=== PATIENT | female | born 1940 | race Caucasian/White ===

== ENCOUNTER 2023-04-18 11:02 | Outpatient (OUT) | payer MEDICARE, SELFPAY ==
--- NOTE | 2023-04-18 11:27 | XR_ITS ---
The [address] [address] Patient Name: LASHAUN JOAQUIN MRN: [id number] date: 1940 Sex: F Assigned Patient Location: LAB Current Patient Location: LAB Accession/Order Number: [id number] Exam Date: 04/18/2023 11:18 Report Date: 04/18/2023 11:43 At the request of: CHELSEA MAR Procedure: XR chest 2V EXAM: XR chest 2V HISTORY: Shortness of breath R06.02 COMPARISON: None. TECHNIQUE: PA and lateral views of the chest. FINDINGS: The cardiomediastinal silhouette is normal. No focal consolidation is identified. There is no pneumothorax. No pleural effusion is noted. The osseous structures are intact. IMPRESSION: No acute cardiopulmonary process. Electronically authenticated by: TALI KOVACS Date: 04/18/2023 11:43
[2023-04-18 11:31] LABS: Basophils Percent Auto 0.7 % (0.2-2.0); Eosinophils Absolute Auto 0.1 10^3/uL (0.0-0.7); Eosinophils Percent Auto 1.2 % (0.9-7.0); Hemoglobin 10.6 g/dL (12.0-16.0); Immature Granulocytes Abs Auto 0.05 10^3/uL (0.00-0.03); Immature Granulocytes Pct Auto 0.9 % (0.0-0.5); Lymphocytes Absolute Auto 0.7 10^3/uL (1.2-3.8); Lymphocytes Percent Auto 12.7 % (20.5-60.0); Mean Corpuscular HGB Conc 33.1 g/dL (29.9-35.2); Mean Corpuscular Hemoglobin 29.6 pg (26.7-34.0); Mean Corpuscular Volume 89.4 fL (81.0-99.0); Mean Platelet Volume 10.1 fL (9.5-13.5); Monocytes Absolute Auto 0.4 10^3/uL (0.3-0.8); Monocytes Percent Auto 6.9 % (1.7-12.0); Neutrophils Absolute Auto 4.4 10^3/uL (1.4-6.5); Neutrophils Percent Auto 77.6 % (43.0-75.0); Platelet Count 314 10^3/uL (150-450); Red Blood Count 3.58 10^6/uL (4.20-5.40); Red Cell Distribution Width 13.7 % (11.0-15.0); White Blood Count 5.7 10^3/uL (4.0-11.0)
[2023-04-18 12:18] LABS: Anion Gap 12.3; BUN Creatinine Ratio 17.6; Calcium 9.1 mg/dL (8.5-10.1); Carbon Dioxide 29.4 mmol/L (21.0-32.0); Chloride 105 mmol/L (98-107); Estimated GFR (African America 53 (>=60); Estimated GFR (Non-African Ame 44 (>=60); Glucose 94 mg/dL (74-106); Potassium 4.7 mmol/L (3.5-5.1); Sodium 142 mmol/L (136-145); Thyroid Stimulating Hormone 4.324 uIU/mL (0.358-3.740)
== END 2023-04-18 11:03 ==
LOC: LAB 11:04
PROVIDERS: PCP Internal Medicine; Visit Provider Internal Medicine
DX: R06.02 Shortness of breath (principal); I25.10 Atherosclerotic heart disease of native coronary artery without angina pectoris; I10 Essential (primary) hypertension; D64.9 Anemia, unspecified; R00.1 Bradycardia, unspecified
CPT/HCPCS: 36415; 71046; 80048; 83880; 84443; 85025

== ENCOUNTER 2023-05-31 08:38 | Outpatient (OUT) | payer MEDICARE, SELFPAY ==
[2023-05-31 09:40] LABS: Anion Gap 11.8; BUN Creatinine Ratio 15.5; Calcium 8.7 mg/dL (8.5-10.1); Carbon Dioxide 27.7 mmol/L (21.0-32.0); Chloride 105 mmol/L (98-107); Estimated GFR (African America 58 (>=60); Estimated GFR (Non-African Ame 48 (>=60); Glucose 117 mg/dL (74-106); Potassium 4.5 mmol/L (3.5-5.1); Sodium 140 mmol/L (136-145)
== END 2023-05-31 08:39 | disposition home or self-care (01) ==
LOC: LAB 08:40
PROVIDERS: PCP Internal Medicine; Visit Provider Internal Medicine
DX: I10 Essential (primary) hypertension (principal)
CPT/HCPCS: 36415; 80048

== ENCOUNTER 2023-07-18 10:05 | Outpatient (OUT) | payer MEDICARE, SELFPAY ==
[2023-07-18 10:27] LABS: Bilirubin Urine NEGATIVE (NEGATIVE); Blood Urine LARGE (NEGATIVE); Clarity Urine CLEAR (CLEAR); Glucose Urine UA NEGATIVE (NEGATIVE); Ketones Urine NEGATIVE (NEGATIVE); Leukocyte Esterase Urine NEGATIVE (NEGATIVE); Nitrite Urine POSITIVE (NEGATIVE); Protein Urine NEGATIVE (NEG/TRACE); pH Urine 6.5 (5.0-9.0)
[2023-07-18 10:28] LABS: Color Urine DK YELLOW (YELLOW)
[2023-07-18 11:47] LABS: Bacteria Urine TRACE #/HPF (NONE SEEN); Cast Seen? NONE SEEN #/LPF (NONE SEEN); Crystals Seen? None Seen #/HPF (None Seen); Mucus Urine NONE SEEN (NONE SEEN); Squamous Epithelial Cell Urine RARE #/LPF (NONE/RARE); WBC Urine 0-2 #/HPF (NONE SEEN)
== END 2023-07-18 10:06 | disposition home or self-care (01) ==
LOC: LAB 10:09
PROVIDERS: PCP Internal Medicine; Visit Provider Internal Medicine
DX: R30.0 Dysuria (principal)
CPT/HCPCS: 81001; 87086

== ENCOUNTER 2023-07-27 01:56 | Inpatient (IN) | payer MEDICARE, SELFPAY ==
[2023-07-27] VITALS (25 sets, daily range): BP systolic 101–172; BP diastolic 50–100; PULSE 44–85; RESP 16–32; TEMP 35.9–38.8; O2SAT 85–100; BMI 35.4
--- NOTE | 2023-07-27 02:15 | ECG_ITS ---
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
--- NOTE | 2023-07-27 02:18 | XR_ITS ---
The [place] [id number] Patient Name: LASHAUN JOAQUIN MRN: [id number] date: 1940 Sex: F Assigned Patient Location: ER Current Patient Location: ER Accession/Order Number: [id number] Exam Date: 07/27/2023 02:27 Report Date: 07/27/2023 02:47 At the request of: TONIA MARKER Procedure: XR chest 1V EXAM: XR chest 1V HISTORY: COVID+ SOB COMPARISON: Chest x-ray 04/18/2023 TECHNIQUE: Single frontal view chest x-ray FINDINGS: Moderate bilateral mid and lower lung opacities. Trace right pleural effusion. No pneumothorax or acute bony abnormality. Mildly enlarged cardiac silhouette and bilateral pulmonary vascular congestion. XR/XR chest 1V IMPRESSION: Moderate bilateral mid and lower lung opacities reflect pneumonitis, edema, or other lung infiltrates. Correlate clinically. Trace right pleural effusion. Mildly enlarged cardiac silhouette and bilateral pulmonary vascular congestion. Electronically authenticated by: ARNAV JAIN Date: 07/27/2023 02:47
--- NOTE | 2023-07-27 02:18 | ED_ITS ---
HPI - SOB/Dyspnea General Chief Complaint: Shortness of Breath/Dyspnea Stated Complaint: SOB Time Seen by Provider: 07/27/23 02:14 Source: patient and family Mode of arrival: walk-in History of Present Illness HPI Narrative: This 82-year-old female with history of coronary artery disease status post coronary stenting ?3 recently presents for evaluation of cough, wheezing and shortness of breath. The patient and her both tested positive for Covid 19 on Sunday, 5 days ago, the patient is vaccinated and has had her boosters. She states she was not experiencing any Covid symptoms until yesterday during the day when she started coughing and becoming short of breath. She has mild nausea but denies any abdominal pain. She has not had any vomiting or diarrhea. She is not a smoker. The patient's thinks that she may have contracted Covid 19 while in this hospital at cardiac rehab. She has a history of congestive heart failure but not chronic obstructive pulmonary disease. MD elicited complaint: shortness of breath and cough Related Data Home Medications Medication Instructions Recorded Confirmed alprazolam 0.25 mg tablet 0.25 mg PO TID 04/11/23 04/11/23 aspirin 81 mg tablet,delayed 81 mg PO DAILY 04/11/23 04/11/23 release carvedilol 3.125 mg tablet 3.125 mg PO Q12H 04/11/23 04/11/23 furosemide 20 mg tablet 20 mg PO DAILY 04/11/23 04/11/23 gabapentin 100 mg capsule 100 mg PO Q12H 04/11/23 04/11/23 irbesartan 150 mg tablet 150 mg PO DAILY 04/11/23 04/11/23 pantoprazole 40 mg tablet,delayed 40 mg PO DAILY 04/11/23 04/11/23 release (Protonix) potassium chloride 10 mEq 10 meq PO DAILY 04/11/23 04/11/23 capsule,extended release pravastatin 40 mg tablet 40 mg PO DAILY 04/11/23 04/11/23 temazepam 15 mg capsule (Restoril) 15 mg PO .hs PRN sleep 04/11/23 04/11/23 ticagrelor 90 mg tablet (Brilinta) 90 mg PO Q12H 04/11/23 04/11/23 carvedilol 12.5 mg tablet mg 07/27/23 clopidogrel 75 mg tablet mg 07/27/23 fluticasone propionate 115 inhalation 07/27/23 mcg-salmeterol 21 mcg/actuation HFA inhaler (Advair HFA) losartan 50 mg tablet mg 07/27/23 nirmatrelvir 300 mg (150 mg ea PO 07/27/23 x2)-ritonavir 100 mg tablet,dose pack (Paxlovid) nitrofurantoin 07/27/23 monohydrate/macrocrystals 100 mg capsule potassium chloride 10 mEq meq PO 07/27/23 tablet,extended release Allergies Allergy/AdvReac Type Severity Reaction Status Date / Time amlodipine Allergy Verified 07/27/23 02:13 doxycycline Allergy Verified 07/27/23 02:13 duloxetine [From Cymbalta] Allergy Verified 07/27/23 02:13 ondansetron [From Zofran] Allergy Verified 07/27/23 02:13 sulfamethoxazole Allergy Verified 07/27/23 02:13 [From Bactrim] tetanus and diphtheria Allergy Verified 07/27/23 02:13 toxoids trimethoprim [From Bactrim] Allergy Verified 07/27/23 02:13 Review of Systems ROS Status of ROS 10 or more systems reviewed and unremarkable except as noted in history and below [facility] Medical History (Updated 07/27/23 @ 03:29 by Cher Singh MD) Surgical History (Updated 04/11/23 @ 12:59 by Óscar Young RN) Social History Smoking status: Never smoker Exam Narrative Exam Narrative: Nurses note and vital signs reviewed and patient is Afebrile with a normal pulse, blood pressure is elevated 148/68, she is hypoxic with pulse pulse ox of 85 percent on room air. She improved to 94 percent on 3L supplemental oxygen. General: Ill appearing elderly female, she appears weak, she is speaking in a whisper , moderate conversational dyspnea Skin: Warm, dry, no pallor noted. There is no rash noted. Head: Normocephalic, atraumatic Eye: Normal conjunctiva, no drainage, EOMI. PERRL Cardiovascular: Regular Rate and Rhythm S1S2, no murmurs, rubs or gallops Respiratory: Patient is speaking in a whispering voice, she has faint expiratory wheezing in all lung bob Back: non-tender, no CVA tenderness bilaterally to percussion. GI: Normal bowel sounds, no tenderness to palpation, no masses appreciated. No rebound, guarding, or rigidity noted. Musculoskeletal: The patient has no evidence of calf tenderness, no pitting edema, symmetrical pulses noted bilaterally Neurological: A&O x4, normal speech, no focal deficits Psychiatric: Cooperative Constitutional Vital Signs, click to edit/add: Last Vital Signs Temp 98.3 F 07/27/23 02:02 Pulse 74 07/27/23 02:50 Resp 27 H 07/27/23 02:50 BP 148/68 H 07/27/23 02:02 Pulse Ox 94 L 07/27/23 02:50 O2 Del Method Nasal Cannula 07/27/23 02:50 O2 Flow Rate 3 07/27/23 02:50 Course Vital Signs Vital signs: Vital Signs Temperature 98.3 F 07/27/23 02:02 Pulse Rate 68 07/27/23 02:02 Respiratory Rate 32 H 07/27/23 02:02 Blood Pressure 148/68 H 07/27/23 02:02 Pulse Oximetry 85 L 07/27/23 02:02 Oxygen Delivery Method Room Air 07/27/23 02:02 Temperature 98.3 F 07/27/23 02:02 Pulse Rate 74 07/27/23 02:50 Respiratory Rate 27 H 07/27/23 02:50 Blood Pressure 148/68 H 07/27/23 02:02 Pulse Oximetry 94 L 07/27/23 02:50 Oxygen Delivery Method Nasal Cannula 07/27/23 02:50 Oxygen Delivery Flow Rate 3 07/27/23 02:50 MDM - SOB/Dyspnea MDM Narrative Medical decision making narrative: 82-year-old female with a history of coronary artery disease and congestive heart failure who tested positive for COVID 19 5 days ago presents for evaluat ion of shortness of breath. She has had 2 COVID 19 vaccinations and the 2 booster shots. The patient states that she wasn't really having any symptoms until the past 24 hours when she started having increasing shortness of breath. She does not have a history of tobacco use but did recently have 3 coronary stents. She denies any los chest pain. She states she feels weak, short of breath and nauseated. Upon arrival she was noted to be hypoxic on room air with pulse ox in the 80s. She is placed on supplemental oxygen with improvement. On her exam she appears weak and dyspneic. She has diffuse expiratory wheezing. EKG done upon arrival was a sinus rhythm at 66 bpm. An IV was placed and she was medicated with gentle fluids, Reglan and Benadryl for nausea and one episode of vomiting. I reviewed her chest x-ray which looks like there is a component of congestive heart failure and she was given 40 mg of IV Lasix. She declined a Mobley catheter. She has a normal troponin.BNP is twice what it was when she was here in March at 1392. Her white count is mildly elevated at 13.7, hemoglobin is mildly low at 10. Electrolytes are normal with a mild elevation in her creatinine at 1.14. Liver function tests are normal. She was given an albuterol MDI treatment by respiratory therapy with minimal improvement. She was medicated with IV Decadron as well. Her COVID 19 test came back negative but she will be maintained on COVID precautions. The case was discussed with the hospitalist and she is accepted for admission. Medical Records Medical records narrative: [place] [address] XRay Report Signed Patient: LASHAUN JOAQUIN MR#: [id number] : 1940 Acct:[id number] Age/Sex: 82 / F ADM Date: 07/27/23 Loc: ER Attending Dr: Ordering Physician: Cher Singh Date of Service: 07/27/23 Procedure(s): XR chest 1V Accession Number(s): [id number] cc: Nathan Bateman D.O.; Cher Singh~ The [place] [id number] Patient Name: LASHAUN JOAQUIN MRN: [id number] date: 1940 Sex: F Assigned Patient Location: ER Current Patient Location: ER Accession/Order Number: [id number] Exam Date: 07/27/2023 02:27 Report Date: 07/27/2023 02:47 At the request of: CHER SINGH Procedure: XR chest 1V EXAM: XR chest 1V HISTORY: COVID+ SOB COMPARISON: Chest x-ray 04/18/2023 TECHNIQUE: Single frontal view chest x-ray FINDINGS: Moderate bilateral mid and lower lung opacities. Trace right pleural effusion. No pneumothorax or acute bony abnormality. Mildly enlarged cardiac silhouette and bilateral pulmonary vascular congestion. XR/XR chest 1V IMPRESSION: Moderate bilateral mid and lower lung opacities reflect pneumonitis, edema, or other lung infiltrates. Correlate clinically. Trace right pleural effusion. Mildly enlarged cardiac silhouette and bilateral pulmonary vascular congestion. Lab Data Labs: Lab Results 07/27/23 Range/Units 02:15 WBC 13.7 H (4.0-11.0) 10^3/uL RBC 3.38 L (4.20-5.40) 10^6/uL Hgb 10.0 L (12.0-16.0) g/dL Hct 30.9 L (36.0-48.0) % MCV 91.4 (81.0-99.0) fL MCH 29.6 (26.7-34.0) pg MCHC 32.4 (29.9-35.2) g/dL RDW 13.2 (11.0-15.0) % Plt Count 289 (150-450) 10^3/uL MPV 9.9 (9.5-13.5) fL Neut % (Auto) 89.2 H (43.0-75.0) % Lymph % (Auto) 5.1 L (20.5-60.0) % [place] % (Auto) 4.1 (1.7-12.0) % Eos % (Auto) 0.6 L (0.9-7.0) % Baso % (Auto) 0.4 (0.2-2.0) % Neut # (Auto) 12.3 H (1.4-6.5) 10^3/uL Lymph # (Auto) 0.7 L (1.2-3.8) 10^3/uL [place] # (Auto) 0.6 (0.3-0.8) 10^3/uL Eos # (Auto) 0.1 (0.0-0.7) 10^3/uL Baso # (Auto) 0.1 (0.0-0.1) 10^3/uL Abs Immat Gran (auto) 0.08 H (0.00-0.03) 10^3/uL Imm/Tot Granulo (auto) 0.6 H (0.0-0.5) % Sodium 141 (136-145) mmol/L Potassium 5.1 (3.5-5.1) mmol/L Chloride 103 (98-107) mmol/L Carbon Dioxide 29.4 (21.0-32.0) mmol/L Anion Gap 13.7 BUN 18.0 (7.0-18.0) mg/dL Creatinine 1.14 H (0.55-1.02) mg/dL Est GFR ( Amer) 56 L (>=60) Est GFR (Non-Af Amer) 46 L (>=60) BUN/Creatinine Ratio 15.8 Glucose 118 H (74-106) mg/dL Lactate 1.6 (0.4-2.0) mmol/L Calcium 8.8 (8.5-10.1) mg/dL Total Bilirubin 0.5 (0.2-1.0) mg/dL AST <5 L (15-37) U/L ALT 19 (14-59) U/L Alkaline Phosphatase 46 (46-116) U/L Troponin I High Sens 20.0 (4.0-51.3) pg/mL NT-Pro-B Natriuret Pep 1391.0 (<=1800.0) pg/mL Total Protein 7.2 (6.4-8.2) g/dL Albumin 3.5 (3.4-5.0) g/dL Globulin 3.7 g/dL Albumin/Globulin Ratio 0.9 ECG Data Attestation: I personally reviewed and interpreted this ECG as follows: (Sinus rhythm at 66 beats for minute, normal axis, normal intervals, no acute ST segment elevation or T-wave inversion) Discharge Plan Discharge Chief Complaint: Shortness of Breath/Dyspnea Clinical Impression: COVID-19, CHF exacerbation, Hypoxia, Shortness of breath Patient Disposition: Admitted as Observation Time of Disposition Decision: 03:22 Condition: Fair Prescriptions / Home Meds: No Action alprazolam 0.25 mg tablet 0.25 mg PO TID aspirin 81 mg tablet,delayed release (DR/EC) 81 mg PO DAILY Brilinta 90 mg tablet 90 mg PO Q12H furosemide 20 mg tablet 20 mg PO DAILY gabapentin 100 mg capsule 100 mg PO Q12H irbesartan 150 mg tablet 150 mg PO DAILY pantoprazole [Protonix] 40 mg tablet,delayed release (DR/EC) 40 mg PO DAILY potassium chloride 10 mEq capsule, extended release 10 meq PO DAILY pravastatin 40 mg tablet 40 mg PO DAILY temazepam [Restoril] 15 mg capsule 15 mg PO .hs PRN (Reason: sleep) carvedilol 3.125 mg tablet 3.125 mg PO Q12H Rx Instructions: must administer with a meal/food losartan 50 mg tablet carvedilol 12.5 mg tablet potassium chloride 10 mEq tablet extended release PO clopidogrel 75 mg tablet nitrofurantoin monohyd/m-cryst 100 mg capsule fluticasone propion-salmeterol [Advair HFA] 115-21 mcg/actuation HFA aerosol inhaler INHALATION Paxlovid 300 mg (150 mg x 2)-100 mg tablets,dose pack PO Referrals: Nathan Bateman DO [Primary Care Provider] - 1 week
[2023-07-27 02:28] LABS: Basophils Absolute Auto 0.1 10^3/uL (0.0-0.1); Basophils Percent Auto 0.4 % (0.2-2.0); Eosinophils Absolute Auto 0.1 10^3/uL (0.0-0.7); Eosinophils Percent Auto 0.6 % (0.9-7.0); Hematocrit 30.9 % (36.0-48.0); Immature Granulocytes Abs Auto 0.08 10^3/uL (0.00-0.03); Immature Granulocytes Pct Auto 0.6 % (0.0-0.5); Lymphocytes Absolute Auto 0.7 10^3/uL (1.2-3.8); Lymphocytes Percent Auto 5.1 % (20.5-60.0); Mean Corpuscular HGB Conc 32.4 g/dL (29.9-35.2); Mean Corpuscular Hemoglobin 29.6 pg (26.7-34.0); Mean Corpuscular Volume 91.4 fL (81.0-99.0); Mean Platelet Volume 9.9 fL (9.5-13.5); Monocytes Absolute Auto 0.6 10^3/uL (0.3-0.8); Monocytes Percent Auto 4.1 % (1.7-12.0); Neutrophils Absolute Auto 12.3 10^3/uL (1.4-6.5); Neutrophils Percent Auto 89.2 % (43.0-75.0); Platelet Count 289 10^3/uL (150-450); Red Blood Count 3.38 10^6/uL (4.20-5.40); Red Cell Distribution Width 13.2 % (11.0-15.0); White Blood Count 13.7 10^3/uL (4.0-11.0)
[2023-07-27] MEDS: METOCLOPRAMIDE HCL 10 MG/2 ML VIAL IVP (02:36)
[2023-07-27] MEDS: ALBUTEROL SULFATE 200 PUFF/6.7 GM INHALER 6 PUFF IH (02:37)
[2023-07-27] MEDS: 0.9 % SODIUM CHLORIDE 1,000 ML 125 ML IV (02:37)
[2023-07-27] MEDS: DEXAMETHASONE SODIUM PHOSPHATE 10 MG/ML VIAL IV (02:37)
[2023-07-27] MEDS: DIPHENHYDRAMINE HCL 50 MG/ML (1ML) VIAL 12.5 MG IV (02:37)
[2023-07-27 02:42] LABS: Alanine Aminotransferase 19 U/L (14-59); Albumin Globulin Ratio 0.9; Albumin Level 3.5 g/dL (3.4-5.0); Alkaline Phosphatase 46 U/L (46-116); Anion Gap 13.7; Aspartate Amino Transferase <5 U/L (15-37); BUN Creatinine Ratio 15.8; Bilirubin Total 0.5 mg/dL (0.2-1.0); Calcium 8.8 mg/dL (8.5-10.1); Carbon Dioxide 29.4 mmol/L (21.0-32.0); Chloride 103 mmol/L (98-107); Estimated GFR (African America 56 (>=60); Estimated GFR (Non-African Ame 46 (>=60); Globulin 3.7 g/dL; Glucose 118 mg/dL (74-106); Potassium 5.1 mmol/L (3.5-5.1); Sodium 141 mmol/L (136-145); Total Protein 7.2 g/dL (6.4-8.2)
[2023-07-27 02:44] LABS: Lactate/Lactic Acid 1.6 mmol/L (0.4-2.0)
[2023-07-27] MEDS: FUROSEMIDE 40 MG/4 ML VIAL IVP (02:56)
[2023-07-27 03:18] LABS: SARS-CoV-2 Ag NEGATIVE (NEGATIVE)
--- NOTE | 2023-07-27 05:12 | W.PM.TELEPN ---
Progress Note: Subjective Subjective Interval history: The patient is an 82-year-old female with a history of CAD status post stents, hypertension and congestive heart failure, who was in her usual state of health until several days ago. She has been undergoing cardiac rehabilitation. Approximately 5 days ago, her and her were diagnosed with COVID. She was started on Paxlovid by her primary care physician and today was the last day. She continues to have increasing shortness of breath with dyspnea on exertion and has 1 pillow orthopnea. She does not have any edema of her lower extremities. She presented to the ED and was noted to be hypoxic 85% on room air and required 2 L. She was also found to have accelerated hypertension. BNP was 1300. She was given IV Lasix. She is being admitted for further evaluation. Exam Narrative Exam Narrative: General : Alert and oriented x3 HEENT : Extraocular movements intact, pupils equal round and reactive to light and accommodation Neck: Supple, no JVD Chest: Diminished sounds at the bases Heart: Regular rate and rhythm, S1 and S2 heard Abdomen: Soft nontender nondistended. Extremities: No clubbing cyanosis trace edema Neurologically: Moving all 4 extremities Skin: No rashes Constitutional Vital Signs, click to edit/add: Last Vital Signs Temp 101.9 F H 07/27/23 03:58 Pulse 69 07/27/23 03:58 Resp 18 07/27/23 03:58 BP 172/68 H 07/27/23 03:58 Pulse Ox 97 07/27/23 04:13 O2 Del Method Nasal Cannula 07/27/23 04:13 O2 Flow Rate 2 07/27/23 04:13 Progress Note: Objective Labs Labs: Short CBC 07/27/23 Range/Units 02:15 WBC 13.7 H (4.0-11.0) 10^3/uL Hgb 10.0 L (12.0-16.0) g/dL Hct 30.9 L (36.0-48.0) % Plt Count 289 (150-450) 10^3/uL BMP 07/27/23 02:15 Sodium 141 Potassium 5.1 Chloride 103 Carbon Dioxide 29.4 BUN 18.0 Creatinine 1.14 H Glucose 118 H Calcium 8.8 Liver Function 07/27/23 Range/Units 02:15 Total Bilirubin 0.5 (0.2-1.0) mg/dL AST <5 L (15-37) U/L ALT 19 (14-59) U/L Alkaline Phosphatase 46 (46-116) U/L Albumin 3.5 (3.4-5.0) g/dL Progress Note: A&P Assessment and Plan (1) COVID-19: (2) CHF exacerbation: (3) Hypoxia: Plan The patient is an 82-year-old female with above medical problems, presenting with acute hypoxic respiratory insufficiency, secondary to COVID as well as CHF exacerbation. COVID pneumonia -Patient has been vaccinated -Complete Paxlovid, today's last dose -Supportive care, antipyretics, nebulizers, vitamin C, Mucinex Acute decompensated heart failure, type unknown -Start IV Lasix -DC IV fluids -Follow BNP Accelerated hypertension -Hydralazine IV as needed DVT Prophylaxis -Plavix Medication review -Medication reconciliation form not yet completed, patient does not know the doses to verify medications Goals of care -DNR?[employer] -Discussed with the emergency room physician -Discussed with the bedside nurse -Patient updated of plan of care, all questions answered to their satisfaction Disposition -PT evaluation - Home when medically stable Telemedicine clause -As the provider of this telehealth evaluation, requested by the patient's evaluating physician, I attest that I introduced myself to the patient, provided my credentials and determined that telemedicine via a real-time, two-way interactive audio and video platform is an appropriate and effective means of providing this service. -I reviewed the patient's chart and had a discussion with the member of the patient's treatment team. -The patient and I mutually agreed with continuation of this evaluation via telemedicine. The patient consented for the telemedicine evaluation. -This virtual encounter was taken place from [place], [place]. The encounter was approximately 35 minutes. The nurse was present during the entire time of the encounter and was able to remove the stethoscope and appropriate directions. The patient was evaluated at [facility] Telemedicine Attestation Telemedicine Attestation I conducted this encounter from [] via secure live, [id number] video conference with the patient, located at [facility] with []. Prior to the interview, the risks and benefits of telemedicine were discussed with the patient and verbal consent was obtained.
[2023-07-27] MEDS: ASCORBIC ACID 500 MG TABLET PO (05:39)
[2023-07-27] MEDS: GUAIFENESIN 600 MG TAB.ER.12H PO ×2 (05:39→21:07)
[2023-07-27] MEDS: CALCIUM CARBONATE 500 MG (200MG ELEMENTAL) TAB CHEW PO (05:39)
[2023-07-27] MEDS: ACETAMINOPHEN 325 MG TABLET 650 MG PO (05:39)
[2023-07-27] MEDS: HYDRALAZINE HCL 20 MG/ML VIAL 10 MG IVP (05:39)
--- NOTE | 2023-07-27 08:18 | P.HP_ITS ---
H&P: HPI History of Present Illness Chief complaint: SOB CHF EXACERBATION HYPOXIA COVID Narrative: patient is an 82-year-old female with past medical history of coronary artery disease status post coronary stenting ?3, chronic heart failure unknown type, hypertension who presented to the emergency department last night after increased shortness of breath when trying to lay flat. Per patient and daughter who is present at the time of admission exam she was diagnosed with Covid approximately five days ago. Symptoms of covid was a headache fatigue, and leg pain. Also had a fever. Her who also lives at home with her was also diagnosed with Covid. She took four out of five days of Paxlovid and today w ould've been her last day. She reports improvement in the headaches but last night was more short of breath. Per her daughter they have not been out of the house much or moving around much since diagnosed with covid five days ago. Patient had a fever 101.9, some orthopnea and she reports compliance with her medications. She sees a boiler helper in [place], Dr. Perry and has been admitted to [facility] in the past. Per conversation with patient and daughter patient wishes to be a DNR CC that was signed and placed on the chart today. At the time of admission exam patient does complain of shortness of breath no chest pain no nausea vomiting diarrhea or fevers. Covid test here was negative. Review of Systems ROS Narrative ROS: a complete review of systems were reviewed with patient and are positive as below or listed in History of Chief Complaint. General: fever, chills, no night sweats Head: headache, no trauma, visual changes, nausea or vomiting Skin: no reported rashes, itching or sores Eyes: no blurriness of vision Ears: no reported hearing loss, vertigo, earache, or tinnitus Throat: no sore throat, hoarseness, swelling of neck, or tongue pain Heart: no chest pain Lungs: shortness of breath no cough GI: no diarrhea or vomiting/nausea Urinary: no urinary urgency, frequency or pain Neuro: no numbness or tingling HEM: no bleeding issues or bruising ENDO: no thyroid problems Psych: no anxiety or depression [facility] Medical History (Updated 07/27/23 @ 10:50 by Madison Harris DO) Surgical History Family History Brother Family history of diabetes mellitus Family history of cancer Sister Family history of cancer Social History Within the past year, how often did you have a drink containing alcohol: never Within the past year, how often did you have six or more drinks on one occasion: never Score interpretation: A score less than 3 is consistent with normal alcohol consumption. Smoking status: Never smoker Non-prescribed substance use: denies use Previous occupational history: retired Known occupational exposures/hazards: No Highest level of school completed/degree received: 11th grade Do you want help with school or training: No Are you now , , , , never or living with a partner: In a typical week, how many times do you talk on the telephone with family, friends, or neighbors: twice per week How often do you get together with friends or relatives: twice per week How often do you attend episcopal or bahai services: 1-3 times per year Do you belong to any clubs or organizations such as episcopal groups unions, [employer] or athletic groups, or school groups: yes Total score: 3 Score interpretation: A score of greater than or equal to 2 indicates the lowest level of social isolation. Little interest or pleasure in doing things: not at all Feeling down, depressed, or hopeless: not at all Feel stressed/tense/nervous/anxious/difficulty sleeping: only a little Due to disability, difficulty making decisions: No Do you think of yourself as: straight/heterosexual Gender Identity: female Meds Home Medications and Allergies Home Medications Medication Instructions Recorded Confirmed Type alprazolam 0.25 mg tablet 0.25 mg PO TID 04/11/23 07/27/23 History aspirin 81 mg tablet,delayed 81 mg PO DAILY 04/11/23 07/27/23 History release carvedilol 3.125 mg tablet 3.125 mg PO Q12H 04/11/23 07/27/23 History furosemide 20 mg tablet 20 mg PO DAILY 04/11/23 07/27/23 History gabapentin 100 mg capsule 100 mg PO Q12H 04/11/23 07/27/23 History irbesartan 150 mg tablet 150 mg PO DAILY 04/11/23 07/27/23 History pantoprazole 40 mg tablet,delayed 40 mg PO DAILY 04/11/23 07/27/23 History release (Protonix) potassium chloride 10 mEq 10 meq PO DAILY 04/11/23 07/27/23 History capsule,extended release pravastatin 40 mg tablet 40 mg PO DAILY 04/11/23 07/27/23 History temazepam 15 mg capsule (Restoril) 15 mg PO .hs PRN sleep 04/11/23 07/27/23 History ticagrelor 90 mg tablet (Brilinta) 90 mg PO Q12H 04/11/23 07/27/23 History carvedilol 12.5 mg tablet mg 07/27/23 History clopidogrel 75 mg tablet 75 mg PO .QD 07/27/23 07/27/23 History fluticasone propionate 115 2 puff inhalation Q12H 07/27/23 07/27/23 History mcg-salmeterol 21 mcg/actuation HFA inhaler (Advair HFA) losartan 50 mg tablet 50 mg PO BID 07/27/23 07/27/23 History nirmatrelvir 300 mg (150 mg 3 ea PO BID 07/27/23 07/27/23 History x2)-ritonavir 100 mg tablet,dose pack (Paxlovid) Allergies Allergy/AdvReac Type Severity Reaction Status Date / Time amlodipine Allergy Verified 07/27/23 02:13 doxycycline Allergy Verified 07/27/23 02:13 duloxetine [From Cymbalta] Allergy Verified 07/27/23 02:13 ondansetron [From Zofran] Allergy Verified 07/27/23 02:13 sulfamethoxazole Allergy Verified 07/27/23 02:13 [From Bactrim] tetanus and diphtheria Allergy Verified 07/27/23 02:13 toxoids trimethoprim [From Bactrim] Allergy Verified 07/27/23 02:13 Exam Narrative Exam Narrative: General: Patient is alert, and oriented to person, place and time with normal affect, proper hygiene Skin: no visible rashes, or ulcers Head: atraumatic, acephalic Eyes: PERRLA, no nystagmus present, conjunctiva clear, no scleral icterus Ears: normal gross auditory acuity Nose: symmetric, no discharge, no maxillary or frontal sinus tenderness Neck: no masses palpated, normal thyroid, no JVD or audible carotid bruits Heart: Normal rate and rhythm, no murmurs/rubs/gallops Lungs: no audible wheezes, crackles and normal breath sounds all lung bob Abdomen: Normal audible bowel sounds, no distension, No palpable masses, no or ganomegaly, no rebound/guarding/ or rigidity Musculoskeletal: no swelling bilateral lower extremities Vascular: Normal carotid, radial, femoral, posterior tibial, and dorsalis pedis pulses Lymph: no supraclavicular, axillary, or anterior/posterior cervical adenopathy Neuro: CN II-X grossly intact, normal sensation upper and lower extremities Constitutional Vital Signs, click to edit/add: Last Vital Signs Temp 99.5 F 07/27/23 06:00 Pulse 69 07/27/23 06:00 Resp 20 07/27/23 06:00 BP 166/74 H 07/27/23 06:00 Pulse Ox 95 07/27/23 06:00 O2 Del Method Nasal Cannula 07/27/23 06:00 O2 Flow Rate 2 07/27/23 06:00 Results Labs Labs: Short CBC 07/27/23 Range/Units 02:15 WBC 13.7 H (4.0-11.0) 10^3/uL Hgb 10.0 L (12.0-16.0) g/dL Hct 30.9 L (36.0-48.0) % Plt Count 289 (150-450) 10^3/uL BMP 07/27/23 02:15 Sodium 141 Potassium 5.1 Chloride 103 Carbon Dioxide 29.4 BUN 18.0 Creatinine 1.14 H Glucose 118 H Calcium 8.8 Liver Function 07/27/23 Range/Units 02:15 Total Bilirubin 0.5 (0.2-1.0) mg/dL AST <5 L (15-37) U/L ALT 19 (14-59) U/L Alkaline Phosphatase 46 (46-116) U/L Albumin 3.5 (3.4-5.0) g/dL Assessment and Plan Assessment and Plan (1) Pneumonia due to COVID-19 virus: Assessment and Plan: chest x-ray shows moderate bilateral mid and lower lung opacities more consistent with pneumonia based on signs and symptoms. Also with a trace right pleural effusion. Symptomatic treatment with nebulizer, oxygen therapy, antibiotics if needed and will also place on azithromycin and Rocephin for secondary bacterial pneumonia.OPEP therapy. leukocytosis of 13.7 (2) CHF exacerbation: Assessment and Plan: elevated proBNP, and trace pleural effusion on the right lung, will place on Lasix 40 mg IV daily, on a fluid restriction and daily weights (3) Hypoxia: Assessment and Plan: continual nasal cannula oxygen therapy to maintain saturations above ninety percent (4) Coronary artery disease: Assessment and Plan: patient with history of stents ?3. Continue daily aspirin and Plavix, and pravastatin, and Brilinta (5) Obesity: Assessment and Plan: losing weight would help improve cardiac prognosis overall (6) GERD (gastroesophageal reflux disease): Assessment and Plan: continue protonix (7) HTN (hypertension): Assessment and Plan: continue losartan hold Coreg for hypotension Plan patient is a DNR CC Continue aspirin and Plavix Patient is an inpatient status and is expected to say more than two midnights
[2023-07-27] MEDS: FUROSEMIDE 20 MG/2 ML VIAL 40 MG IVP (08:43)
[2023-07-27] MEDS: AZITHROMYCIN 500 MG in 0.9 % SODIUM CHLORIDE 250 ML 250 MG IV (08:43)
[2023-07-27] MEDS: ISOSORBIDE DINITRATE 30 MG TABLET PO ×2 (08:43→13:14)
[2023-07-27] MEDS: 0.9 % SODIUM CHLORIDE 250 ML 10 ML IV (08:44)
--- NOTE | 2023-07-27 10:25 | CM.NOTE ---
Rounds made with Dr. Harris. Dr. Harris discussed the plan of care and addition of Rocephin IV to medications. No plan for discharge today,
--- NOTE | 2023-07-27 10:32 | SWNOTE1 ---
SW met with pt to review Important Message from Medicare form. Pt did not have any questions at this time, pt signed form. Original given to pt and copy placed on chart. Pt's daughter came in room as well and did ask what the form was. SW reviewed the form with daughter as well. SW did confirm to daughter that pt is inpatient. No further questions at this time. Pt lives at home with her . She stays active and is independent. No discharge needs at this time. SW to follow as needed.
[2023-07-27] MEDS: CEFTRIAXONE 1,000 MG in 0.9 % SODIUM CHLORIDE 50 ML 100 MG IV (11:12)
[2023-07-27] MEDS: ASPIRIN 81 MG TABLET.DR PO (11:12)
[2023-07-27] MEDS: CLOPIDOGREL BISULFATE 75 MG TABLET PO (11:12)
[2023-07-27] MEDS: POTASSIUM CHLORIDE 10 MEQ ER TABLET PO (11:12)
[2023-07-27] MEDS: GABAPENTIN 100 MG CAPSULE PO ×2 (11:12→21:07)
[2023-07-27] MEDS: OMEPRAZOLE 40 MG CAPSULE.DR PO (11:12)
[2023-07-27] MEDS: ALBUTEROL SULFATE 2.5 MG/3 ML VIAL NEB IH ×3 (11:24→20:30)
[2023-07-27] MEDS: BUDESONIDE 0.5 MG/2 ML AMPULE NEB IH ×2 (11:24→20:30)
[2023-07-27] MEDS: ALPRAZOLAM 0.25 MG TABLET PO ×2 (13:14→21:07)
[2023-07-27 15:53] LABS: SARS-CoV-2 NAA NOT DETECTED (NOT DETECTE)
[2023-07-27] MEDS: LOSARTAN POTASSIUM 50 MG TABLET PO (21:07)
[2023-07-27] MEDS: TICAGRELOR 90 MG TABLET PO (21:07)
[2023-07-27] MEDS: ATORVASTATIN CALCIUM 10 MG TABLET PO (21:08)
[2023-07-28] VITALS (12 sets, daily range): BP systolic 142–144; BP diastolic 60–77; PULSE 56–95; RESP 16–20; TEMP 36.1; O2SAT 91–97
[2023-07-28 04:50] LABS: Basophils Percent Auto 0.1 % (0.2-2.0); Hematocrit 25.3 % (36.0-48.0); Hemoglobin 8.2 g/dL (12.0-16.0); Immature Granulocytes Abs Auto 0.09 10^3/uL (0.00-0.03); Immature Granulocytes Pct Auto 0.7 % (0.0-0.5); Lymphocytes Absolute Auto 0.6 10^3/uL (1.2-3.8); Lymphocytes Percent Auto 4.4 % (20.5-60.0); Mean Corpuscular HGB Conc 32.4 g/dL (29.9-35.2); Mean Corpuscular Hemoglobin 29.1 pg (26.7-34.0); Mean Corpuscular Volume 89.7 fL (81.0-99.0); Mean Platelet Volume 10.1 fL (9.5-13.5); Monocytes Absolute Auto 0.4 10^3/uL (0.3-0.8); Monocytes Percent Auto 3.2 % (1.7-12.0); Neutrophils Absolute Auto 11.4 10^3/uL (1.4-6.5); Neutrophils Percent Auto 91.6 % (43.0-75.0); Platelet Count 261 10^3/uL (150-450); Red Blood Count 2.82 10^6/uL (4.20-5.40); Red Cell Distribution Width 13.2 % (11.0-15.0); White Blood Count 12.5 10^3/uL (4.0-11.0)
[2023-07-28 05:00] LABS: Anion Gap 14.7; Calcium 8.4 mg/dL (8.5-10.1); Carbon Dioxide 24.8 mmol/L (21.0-32.0); Chloride 102 mmol/L (98-107); Estimated GFR (African America 50 (>=60); Estimated GFR (Non-African Ame 42 (>=60); Glucose 154 mg/dL (74-106); Potassium 4.5 mmol/L (3.5-5.1); Sodium 137 mmol/L (136-145)
[2023-07-28] MEDS: ALBUTEROL SULFATE 2.5 MG/3 ML VIAL NEB IH (05:00)
[2023-07-28] MEDS: ALPRAZOLAM 0.25 MG TABLET PO (05:40)
[2023-07-28] MEDS: OMEPRAZOLE 40 MG CAPSULE.DR PO (05:40)
[2023-07-28] MEDS: ACETAMINOPHEN 325 MG TABLET 650 MG PO (07:31)
[2023-07-28] MEDS: AZITHROMYCIN 500 MG in 0.9 % SODIUM CHLORIDE 250 ML 250 MG IV (09:06)
[2023-07-28] MEDS: ISOSORBIDE DINITRATE 30 MG TABLET PO (09:12)
[2023-07-28] MEDS: CLOPIDOGREL BISULFATE 75 MG TABLET PO (09:13)
[2023-07-28] MEDS: LOSARTAN POTASSIUM 50 MG TABLET PO (09:14)
[2023-07-28] MEDS: ASCORBIC ACID 500 MG TABLET PO (09:16)
[2023-07-28] MEDS: ASPIRIN 81 MG TABLET.DR PO (09:16)
[2023-07-28] MEDS: FUROSEMIDE 20 MG/2 ML VIAL 40 MG IVP (09:17)
[2023-07-28] MEDS: GUAIFENESIN 600 MG TAB.ER.12H PO (09:17)
--- NOTE | 2023-07-28 10:34 | PT.DAILY ---
Physical Therapy Daily Note PT Daily Note/Assess Start: 07/28/23 10:31 Freq: Status: Active Protocol: Document 07/27/23 10:00 AAMIR (Rec: 07/28/23 10:34 AAMIR [id number]) Physical Therapy Daily Note/Assessment Time In/Time Out Time In 10:00 Time Out 10:30 Subjective Subjective Patient reports tired, hasn't slept good but other than that doing okay. Therapeutic Activity Time Therapeutic Activity Minutes (minutes) 15 Therapeutic Activity Units 1 Therapeutic Activity Treatment Bed Mobility Ability Independent Chair Transfer Ability Independent Therapeutic Activity Comments Gait without AD in room 50 ft. supervision. No LOB. Neuromuscular Reeducation Neuromuscular Reeducation Minutes ( 10 minutes) Neuromuscular Reeducation Units 1 Balance Activities Static Sitting Balance Ability Normal Dynamic Sitting Balance Ability Normal Static Standing Balance Ability Normal Dynamic Standing Balance Ability Good Balance Activities Rhomberg EO/EC 30 seconds each , and with head turns. No LOB. 5x sit to stand from EOB with arms across chest, good speed . NO LOB. Total Physical Therapy Time Total Therapy Minutes 25 Total Physical Therapy Units 2
[2023-07-28] MEDS: CEFTRIAXONE 1,000 MG in 0.9 % SODIUM CHLORIDE 50 ML 100 MG IV (11:05)
[2023-07-28] MEDS: TICAGRELOR 90 MG TABLET PO (11:17)
[2023-07-28] MEDS: GABAPENTIN 100 MG CAPSULE PO (11:17)
--- NOTE | 2023-07-28 12:05 | P.DS_ITS ---
DS: Providers Provider Date of admission: 07/27/23 09:56 Primary care physician: Nathan Bateman DO Consults: 07/27/23 05:04 Physical Therapy Eval and Treat Routine Reason for consultation: weakness 07/27/23 08:16 Occupational Therapy Eval and Treat Routine Reason for consultation: deconditioning Has provider been notified: No Attending physician on discharge: Shaikh Jaiden Discharging clinician: Shaikh Jaiden Anticipated date of discharge: 07/28/23 DS: Diagnosis Discharge Diagnosis (1) Pneumonia due to COVID-19 virus: Assessment and plan: Recent COVID infection. S/p Paxlovid. Was presumed to have superimposed bacterial PNA and was treated with rocephin/azithromycin in the hospital. D/c patient on oral ceftin. (2) CHF exacerbation: Assessment and plan: Admitted for acute CHF exacerbation likely due to COVID. BNP is elevated today but clinially she appears to be euvolemic. Will d/c patient on oral lasix 40 mg for one week intead of her usual 20 mg dose. Pt asked to f/u with her PCP in one week. Qualifiers: Heart failure type: diastolic Qualified Code(s): I50.33 - Acute on chronic diastolic (congestive) heart failure (3) Coronary artery disease: Assessment and plan: Stable. C/w ASA, coreg, statin (4) Obesity: Assessment and plan: Would benefit from weight loss. (5) GERD (gastroesophageal reflux disease): Assessment and plan: C/w protonix (6) HTN (hypertension): Assessment and plan: Stable. Cw losartan, coreg (7) Respiratory failure with hypoxia: Assessment and plan: Hypoxic with pulse Ox in 80s on admission. Now on RA. Comfortable. DS: Summary Hospital Course Hospital Course: Patient admitted for worsening SOB, cough and found to have acute resp failure with hypoxia sec to acute on chronic diastolic HF, possible sec bacterial infection and recent COVID 19 Pneumonia that was most likely the original insult that set things in motion. Patient was admitted to floor, treated with IV rocephin/zithromax along with IV Lasix with sig improvement in her clinical status and currently, she is doing much better and denies SOVB, cough and is comfortable on RA Status at Discharge Functional status at discharge: independent ambulation Overall status at discharge: patient is back to baseline Time Spent with Patient Time attestation: Total time spent providing and/or coordinating discharge services: Time spent: greater than 30 minutes Exam Constitutional Vital Signs, click to edit/add: Last Vital Signs Temp 97.0 F L 07/28/23 06:00 Pulse 75 07/28/23 09:55 Resp 16 07/28/23 09:12 BP 142/77 H 07/28/23 09:17 Pulse Ox 94 L 07/28/23 11:38 O2 Del Method Room Air 07/28/23 11:38 O2 Flow Rate 1 07/28/23 05:00 Documenting provider has reviewed patient's vital signs: yes Common normals: no apparent distress and oriented x3 General appearance: cooperative HENMT Common normals: normocephalic and head/scalp atraumatic Head and scalp: normocephalic and atraumatic Eye Common normals: conjunctivae normal and no scleral icterus Conjunctiva: conjunctiva(e) normal Respiratory Common normals: normal respiratory effort and clear to auscultation bilaterally Effort & inspection: able to speak in complete sentences Auscultation: clear to auscultation bilaterally Cardio Common normals: regular rate, S1 normal heart sound and S2 normal heart sound Rate: regular rate Heart sounds: S1 normal and S2 normal GI Common normals: Normal to inspection, nondistended, normoactive bowel sounds present, soft to palpation, non-tender and no hepatosplenomegaly Palpation: soft and no hepatosplenomegaly Extremity Common normals: no clubbing, cyanosis or edema Neuro Common normals: oriented x3, moves all extremities and no focal motor deficits Psych Common normals: mental status grossly normal, denies hallucinations, denies homicidal ideation and denies suicidal ideation DS: Data Data Completed and Pending Labs on day of discharge: Labs from last 24 hours 07/28/23 07/27/23 04:13 03:00 WBC 12.5 H RBC 2.82 L Hgb 8.2 L Hct 25.3 L MCV 89.7 MCH 29.1 MCHC 32.4 RDW 13.2 Plt Count 261 MPV 10.1 Neut % (Auto) 91.6 H Lymph % (Auto) 4.4 L [place] % (Auto) 3.2 Eos % (Auto) 0.0 L Baso % (Auto) 0.1 L Neut # (Auto) 11.4 H Lymph # (Auto) 0.6 L [place] # (Auto) 0.4 Eos # (Auto) 0.0 Baso # (Auto) 0.0 Abs Immat Gran (auto) 0.09 H Imm/Tot Granulo (auto) 0.7 H Sodium 137 Potassium 4.5 Chloride 102 Carbon Dioxide 24.8 Anion Gap 14.7 BUN 31.0 H Creatinine 1.24 H Est GFR ( Amer) 50 L Est GFR (Non-Af Amer) 42 L BUN/Creatinine Ratio 25.0 Glucose 154 H Calcium 8.4 L NT-Pro-B Natriuret Pep 3487.0 H* SARS-CoV-2 RNA (ZABRINA) Not detected Discharge Plan Discharge Disposition: Home, Self-Care Condition: Fair Discharge Medications: New cefuroxime axetil 500 mg tablet 500 mg PO BID 7 Days Qty: 14 0RF Continued alprazolam 0.25 mg tablet 0.25 mg PO BID PRN (Reason: anxiety) aspirin 81 mg tablet,delayed release (DR/EC) 81 mg PO DAILY furosemide 20 mg tablet 20 mg PO DAILY gabapentin 100 mg capsule 100 mg PO Q12H Patient Comments: can take in the afternoon if needed pantoprazole [Protonix] 40 mg tablet,delayed release (DR/EC) 40 mg PO DAILY potassium chloride 10 mEq capsule, extended release 10 meq PO DAILY Rx Instructions: takes with lasix- may take another dose in the evening if Lasix is taken pravastatin 40 mg tablet 40 mg PO .dinner temazepam [Restoril] 15 mg capsule 15 mg PO .hs PRN (Reason: sleep) carvedilol 3.125 mg tablet 3.125 mg PO Q12H Rx Instructions: must administer with a meal/food losartan 50 mg tablet 50 mg PO BID clopidogrel 75 mg tablet 75 mg PO .QD furosemide [Lasix] 20 mg tablet 20 mg PO DAILY PRN (Reason: weight gain) Rx Instructions: as needed in the evening if weight is greater than 200 lbs ropinirole 0.25 mg tablet 0.25 mg PO .dinner PRN (Reason: restless leg(s)) Activity: resume usual activities as tolerated Diet: advance to your usual diet Forms: Portal Instructions Follow Up Appointments: Follow up with Dr. Bateman SundayAugust 06 @ 10:45am. [phone]
--- NOTE | 2023-07-30 14:32 | CM.DCFOLLOWU ---
Person spoke with: patient How are you feeling? my legs are cramping How is your pain? no pain really Did you understand your discharge instructions? patient states yes, but she did not understand her discharge instructions and how to take her lasix and potassium. I spent 17 minutes on the phone with this patient to review and re-review when and how to take her lasix and potassium as written on her discharge instructions. Patient states she was taking two 20mg tablets of lasix daily and one 10 meq of potassium, not matter what her weight was. Do you have any questions about your discharge instructions? see above Were you given any prescriptions at discharge? yes Were you able to get your prescriptions filled? yes Do you understand how to take your medications as ordered? see above Do you have any questions about your follow up appointment and do you plan to keep your follow up appointment? plans on keeping her follow up appointment on 08/[address] Bateman. Is there anything else that you would like to discuss? no Questions/Comments/Concerns/Other: I encouraged the patient to contact Dr. Bateman's office [facility] to let them know about her legs and how she has not been taking her lasix correctly and see if they want her to have lab work before her follow up visit. Pt. voiced understanding.
== END 2023-07-28 13:10 | disposition home or self-care (01) | DRG 177 ==
LOC: ER 03:29 → MS 03:49
PROVIDERS: Admitting Provider Internal Medicine; Emergency Provider Emergency Medicine; PCP Internal Medicine; Visit Provider Internal Medicine
DX: U07.1 COVID-19 (principal); I50.33 Acute on chronic diastolic (congestive) heart failure; J12.82 Pneumonia due to coronavirus disease 2019; J15.9 Unspecified bacterial pneumonia; J96.01 Acute respiratory failure with hypoxia; Z66 Do not resuscitate; I11.0 Hypertensive heart disease with heart failure; I25.10 Atherosclerotic heart disease of native coronary artery without angina pectoris; E66.9 Obesity, unspecified; K21.9 Gastro-esophageal reflux disease without esophagitis; Z95.5 Presence of coronary angioplasty implant and graft; Z68.35 Body mass index [BMI] 35.0-35.9, adult; Z86.16 Personal history of COVID-19; Z79.82 Long term (current) use of aspirin; Z79.02 Long term (current) use of antithrombotics/antiplatelets; Z79.899 Other long term (current) drug therapy; Z88.1 Allergy status to other antibiotic agents; Z88.2 Allergy status to sulfonamides; Z88.7 Allergy status to serum and vaccine; Z88.8 Allergy status to other drugs, medicaments and biological substances; Z83.3 Family history of diabetes mellitus; Z80.9 Family history of malignant neoplasm, unspecified
CPT/HCPCS: 36415; 71045; 80048; 80053; 83605; 83880; 84484; 85025; 87635; 87811; 93005; 94640; 94667; 94668; 94761; 96365; 96366; 96367; 96368; 96375; 96376; 97112; 97162; 97165; 97530; 99285; J0456; J1100; Q3014; U0003

== ENCOUNTER 2023-07-31 21:17 | Emergency (ER) | payer MEDICARE, SELFPAY ==
[2023-07-31 21:22] VITALS: BP 198/90; PULSE 60; RESP 18; TEMP 36.8; O2SAT 98; BMI 32.0
[2023-07-31 21:36] VITALS: O2SAT 98
--- NOTE | 2023-07-31 21:37 | PC.NURSE ---
area to feet appear like a petechial rash, pt states this is not new and has had several DR's look at this over time and reports these Dr's were all unsure of what this is. Pt is concerned this is from her HTN. Dr notified of pt's concern
--- NOTE | 2023-07-31 21:58 | ED.GENADUL1 ---
HPI - General Adult General Chief complaint: Skin/Abscess/Foreign Body Stated complaint: Hypertension Time Seen by Provider: 07/31/23 21:24 Source: patient Mode of arrival: Wheelchair History of Present Illness HPI narrative: 82-year-old female to the emergency department with chief complaint of elevated blood pressure.He reports a history of hypertension for which she takes losartan twice a day and Coreg. She reports she took her blood pressure several times tonight and found it to be elevating every time. Final blood pressure at home was two hundred systolic putting her to call her daughter and seek care tonight. She denies any chest pain, shortness of breath, numbness, weakness, tingling, vision changes. She is currently asymptomatic. She reports she is nervous about the elevated blood pressure did not know when she seek emergency care for this. She has an appointment with her family doctor tomorrow morning. Related Data Home Medications Medication Instructions Recorded Confirmed alprazolam 0.25 mg tablet 0.25 mg PO BID PRN anxiety 04/11/23 07/28/23 aspirin 81 mg tablet,delayed 81 mg PO DAILY 04/11/23 07/27/23 release carvedilol 3.125 mg tablet 3.125 mg PO Q12H 04/11/23 07/27/23 furosemide 20 mg tablet 20 mg PO DAILY 04/11/23 07/27/23 gabapentin 100 mg capsule 100 mg PO Q12H 04/11/23 07/27/23 pantoprazole 40 mg tablet,delayed 40 mg PO DAILY 04/11/23 07/27/23 release (Protonix) potassium chloride 10 mEq 10 meq PO DAILY 04/11/23 07/28/23 capsule,extended release pravastatin 40 mg tablet 40 mg PO .dinner 04/11/23 07/28/23 temazepam 15 mg capsule (Restoril) 15 mg PO .hs PRN sleep 04/11/23 07/27/23 clopidogrel 75 mg tablet 75 mg PO .QD 07/27/23 07/27/23 losartan 50 mg tablet 50 mg PO BID 07/27/23 07/27/23 furosemide 20 mg tablet (Lasix) 20 mg PO DAILY PRN weight gain 07/28/23 07/28/23 ropinirole 0.25 mg tablet 0.25 mg PO .dinner PRN restless 07/28/23 07/28/23 leg(s) Previous Rx's Medication Instructions Recorded cefuroxime axetil 500 mg tablet 500 mg PO BID 7 days #14 tabs 07/28/23 Allergies Allergy/AdvReac Type Severity Reaction Status Date / Time amlodipine Allergy Verified 07/27/23 02:13 doxycycline Allergy Verified 07/27/23 02:13 duloxetine [From Cymbalta] Allergy Verified 07/27/23 02:13 ondansetron [From Zofran] Allergy Verified 07/27/23 02:13 sulfamethoxazole Allergy Verified 07/27/23 02:13 [From Bactrim] tetanus and diphtheria Allergy Verified 07/27/23 02:13 toxoids trimethoprim [From Bactrim] Allergy Verified 07/27/23 02:13 Review of Systems ROS Status of ROS 10 or more systems reviewed and unremarkable except as noted in history and below PFSH [facility] Medical History (Updated 07/31/23 @ 21:59 by Bassam Cortes MD) Coronary artery disease ?I25.10 - Atherosclerotic heart disease of [place] coronary artery without angina pectoris (ICD-10) Obesity ?E66.9 - Obesity, unspecified (ICD-10) Surgical History Family History Brother Family history of diabetes mellitus Family history of cancer Sister Family history of cancer Social History Within the past year, how often did you have a drink containing alcohol: never Within the past year, how often did you have six or more drinks on one occasion: never Score interpretation: A score less than 3 is consistent with normal alcohol consumption. Smoking status: Never smoker Non-prescribed substance use: denies use Previous occupational history: retired Known occupational exposures/hazards: No Highest level of school completed/degree received: 11th grade Do you want help with school or training: No Are you now , , , , never or living with a partner: In a typical week, how many times do you talk on the telephone with family, friends, or neighbors: twice per week How often do you get together with friends or relatives: twice per week How often do you attend mu-ism or anglican services: 1-3 times per year Do you belong to any clubs or organizations such as mu-ism groups unions, fraternal or athletic groups, or school groups: yes Total score: 3 Score interpretation: A score of greater than or equal to 2 indicates the lowest level of social isolation. Little interest or pleasure in doing things: not at all Feeling down, depressed, or hopeless: not at all Feel stressed/tense/nervous/anxious/difficulty sleeping: only a little Due to disability, difficulty making decisions: No Do you think of yourself as: straight/heterosexual Gender Identity: female Exam Narrative Exam Narrative: VITALS: I have reviewed the triage vital signs. GENERAL: Well developed, well appearing elderly female in no acute distress. NEURO: Alert and oriented. Moves all extremities. Face is symmetric and expressive. EYES: PERRL. No scleral icterus or conjunctival injection. No discharge. HENT: Normocephalic, atraumatic. Hearing is grossly intact. Nares grossly patent and without discharge. Mucous membranes moist. NECK: No JVD. Patient moves neck without restriction. CARDIO: Rhythm regular. Normal rate. No murmur, rub, or gallop. Pulses equal bilaterally in the upper and lower extremity. No lower extremity edema. PULM: Lungs clear to auscultation in all bob. No wheezes, rales, or rhonchi. No conversational dyspnea. No splinting, stridor, or accessory muscle use. GI/: Abdomen is soft and non-tender. Normoactive bowel sounds. EXTREMITIES: Symmetric muscle bulk. No joint swelling. No clubbing, cyanosis, or deformity. SKIN: Warm and dry. Normal turgor. Petechial rash to the bilateral lower extremities. PSYCH: Mood, affect, and interaction is appropriate to the setting. Constitutional Vital Signs, click to edit/add: Last Vital Signs Temp 98.2 F 07/31/23 21: Pulse 60 07/31/23 21:22 Resp 18 07/31/23 21:22 BP 198/90 H 07/31/23 21:22 Pulse Ox 98 07/31/23 21:36 O2 Del Method Room Air 07/31/23 21:36 Course Vital Signs Vital signs: Vital Signs Temperature 98.2 F 07/31/23 21:22 Pulse Rate 60 07/31/23 21:22 Respiratory Rate 18 07/31/23 21:22 Blood Pressure 198/90 H 07/31/23 21:22 Pulse Oximetry 98 07/31/23 21:22 Oxygen Delivery Method Room Air 07/31/23 21:22 Temperature 98.2 F 07/31/23 21:22 Pulse Rate 60 07/31/23 21:22 Respiratory Rate 18 07/31/23 21:22 Blood Pressure 198/90 H 07/31/23 21:22 Pulse Oximetry 98 07/31/23 21:36 Oxygen Delivery Method Room Air 07/31/23 21:36 Medical Decision Making MDM Narrative Medical decision making narrative: 82-year-old female, DNR comfort care, to the emergency department with chief complaint of elevated blood pressure. She has chronic petechial rash of the lower extremities. She is currently asymptomatic. She Took her losartan today. Long discussion was had with the patient. Discussed asymptomatic hypertension. Discussed keeping a blood pressure log. She has follow-up with her PCP tomorrow. I recommended not checking her blood pressure further tonight unless he becomes symptomatic and she may seek care. I told her she may call me at the hospital to discuss if she needs to tonight. She'll follow with her PCP tomorrow to discuss her elevated blood pressure tonight. Her blood pressure is otherwise well controlled and even labile per her report. Patient comfortable with discharge home. Daughter comfortable with discharge home. Return precautions discussed. All questions were answered. Patient was discharged home. Discharge Plan Discharge Chief Complaint: Skin/Abscess/Foreign Body Clinical Impression: HTN (hypertension) Patient Disposition: Home, Self-Care Time of Disposition Decision: 21:58 Condition: Good Prescriptions / Home Meds: No Action alprazolam 0.25 mg tablet 0.25 mg PO BID PRN (Reason: anxiety) aspirin 81 mg tablet,delayed release (DR/EC) 81 mg PO DAILY furosemide 20 mg tablet 20 mg PO DAILY gabapentin 100 mg capsule 100 mg PO Q12H Patient Comments: can take in the afternoon if needed pantoprazole [Protonix] 40 mg tablet,delayed release (DR/EC) 40 mg PO DAILY potassium chloride 10 mEq capsule, extended release 10 meq PO DAILY Rx Instructions: takes with lasix- may take another dose in the evening if Lasix is taken pravastatin 40 mg tablet 40 mg PO .dinner temazepam [Restoril] 15 mg capsule 15 mg PO .hs PRN (Reason: sleep) carvedilol 3.125 mg tablet 3.125 mg PO Q12H Rx Instructions: must administer with a meal/food losartan 50 mg tablet 50 mg PO BID clopidogrel 75 mg tablet 75 mg PO .QD furosemide [Lasix] 20 mg tablet 20 mg PO DAILY PRN (Reason: weight gain) Rx Instructions: as needed in the evening if weight is greater than 200 lbs ropinirole 0.25 mg tablet 0.25 mg PO .dinner PRN (Reason: restless leg(s)) cefuroxime axetil 500 mg tablet 500 mg PO BID 7 Days Qty: 14 0RF Print Language: Honduran Instructions: Hypertension (ED) Stand Alone Forms: Portal Instructions Referrals: Nathan Bateman DO [Primary Care Provider] - 1 week (keep BP log. Return with new or worsening symptoms. )
== END 2023-07-31 22:14 | disposition home or self-care (01) ==
PROVIDERS: Emergency Provider Student in an Organized Health Care Education/Training Program; PCP Internal Medicine
DX: I10 Essential (primary) hypertension (principal); Z79.899 Other long term (current) drug therapy; Z79.82 Long term (current) use of aspirin; I25.10 Atherosclerotic heart disease of native coronary artery without angina pectoris
CPT/HCPCS: 99281

== ENCOUNTER 2023-08-31 07:04 | Outpatient (RCR) | payer MEDICARE, SELFPAY ==
--- NOTE | 2023-04-11 | CR1_ITS ---
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
--- NOTE | 2023-05-09 14:07 | CR1_ITS ---
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
--- NOTE | 2023-06-07 14:18 | CR1_ITS ---
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
--- NOTE | 2023-07-05 08:43 | CR1_ITS ---
The 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
--- NOTE | 2023-08-03 16:08 | CR1_ITS ---
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
== END 2023-09-03 12:50 | disposition home or self-care (01) ==
LOC: CR 07:04
PROVIDERS: PCP Internal Medicine; Visit Provider Internal Medicine Cardiovascular Disease
DX: Z98.61 Coronary angioplasty status (principal)
CPT/HCPCS: 93797; 93798

== ENCOUNTER 2023-09-25 08:37 | Outpatient (OUT) | payer MEDICARE, SELFPAY ==
--- NOTE | 2023-09-25 09:06 | XR_ITS ---
The [address] [address] Patient Name: LASHAUN JOAQUIN MRN: [id number] date: 1940 Sex: F Assigned Patient Location: LAB Current Patient Location: LAB Accession/Order Number: [id number] Exam Date: 09/25/2023 09:00 Report Date: 09/25/2023 09:30 At the request of: CHELSEA MAR Procedure: XR chest 2V EXAM: XR chest 2V HISTORY: Subacute Cough R05.2 COMPARISON: None. TECHNIQUE: PA and lateral views of the chest. FINDINGS: The cardiomediastinal silhouette is normal. Right middle lobe stranding opacity. There is no pneumothorax. No pleural effusion is noted. The osseous structures are intact. XR/XR chest 2V IMPRESSION: Right middle lobe atelectasis or pneumonia. Electronically authenticated by: TALI KOVACS Date: 09/25/2023 09:30
[2023-09-25 09:11] LABS: Hematocrit 30.7 % (36.0-48.0); Hemoglobin 9.8 g/dL (12.0-16.0); Mean Corpuscular HGB Conc 31.9 g/dL (29.9-35.2); Mean Corpuscular Hemoglobin 28.7 pg (26.7-34.0); Mean Platelet Volume 9.8 fL (9.5-13.5); Platelet Count 340 10^3/uL (150-450); Red Blood Count 3.41 10^6/uL (4.20-5.40); Red Cell Distribution Width 13.5 % (11.0-15.0); White Blood Count 5.6 10^3/uL (4.0-11.0)
[2023-09-25 09:32] LABS: Bilirubin Urine NEGATIVE (NEGATIVE); Blood Urine LARGE (NEGATIVE); Clarity Urine CLEAR (CLEAR); Color Urine YELLOW (YELLOW); Glucose Urine UA NEGATIVE (NEGATIVE); Ketones Urine NEGATIVE (NEGATIVE); Leukocyte Esterase Urine TRACE (NEGATIVE); Nitrite Urine NEGATIVE (NEGATIVE); Protein Urine TRACE mg/dL (NEG/TRACE); Specific Gravity Urine 1.015 (1.005-1.025); pH Urine 6.5 (5.0-9.0)
[2023-09-25 09:41] LABS: Bacteria Urine TRACE #/HPF (NONE SEEN); Cast Seen? NONE SEEN #/LPF (NONE SEEN); Crystals Seen? None Seen #/HPF (None Seen); Mucus Urine NONE SEEN (NONE SEEN); Squamous Epithelial Cell Urine FEW #/LPF (NONE/RARE); Urine Culture Indicated ALREADY ORDERED; WBC Urine 0-2 #/HPF (NONE SEEN)
[2023-09-25 09:58] LABS: Band Neutrophils Absolute 0.1 10^3/uL (0.0-0.3); Eosinophils Absolute Manual 0.39 10^3/uL (0.00-0.70); Lymphocytes Absolute Manual 0.56 10^3/uL (1.20-3.80); Monocytes Absolute Manual 0.39 10^3/uL (0.30-0.80)
[2023-09-25 10:07] LABS: D Dimer 2.68 mg/L FEU (<=0.59)
== END 2023-09-25 08:38 | disposition home or self-care (01) ==
LOC: LAB 08:41
PROVIDERS: PCP Internal Medicine; Visit Provider Internal Medicine
DX: R05.2 Subacute cough (principal); R06.09 Other forms of dyspnea; R30.0 Dysuria
CPT/HCPCS: 36415; 71046; 81001; 83880; 85027; 85378; 87086

== ENCOUNTER 2023-09-25 10:55 | Emergency (ER) | payer MEDICARE, SELFPAY ==
[2023-09-25] VITALS (10 sets, daily range): BP systolic 143–147; BP diastolic 45–58; PULSE 52–70; RESP 15–32; TEMP 36.8; O2SAT 91–99; BMI 31.3
--- NOTE | 2023-09-25 11:15 | CT_ITS ---
The [address] [address] Patient Name: LASHAUN JOAQUIN MRN: [id number] date: 1940 Sex: F Assigned Patient Location: ER Current Patient Location: ER Accession/Order Number: [id number] Exam Date: 09/25/2023 12:16 Report Date: 09/25/2023 13:27 At the request of: EVGENY CORBIN Procedure: CT angio chest CT angio chest: 09/25/2023 12:16 PM EST CLINICAL HISTORY: 83 years old Female with rule out PE. TECHNIQUE: CT angio chest was performed with axial CT images through the thorax as well as sagittal, coronal and oblique reformations also obtained after intravenous administration of intravenous contrast. COMPARISON: None FINDINGS: There are no filling defects in the main central pulmonary arteries. The heart is not enlarged. There is no pericardial effusion. No enlarged mediastinal or perihilar lymph nodes are noted. There is scattered calcified atherosclerotic disease of aorta. The lungs are clear. There is no pneumothorax or pleural effusion. The visualized portion of the upper abdomen is grossly unremarkable. The osseous structures are unremarkable. CT/CT angio chest IMPRESSION: No pulmonary embolus. Electronically authenticated by: TALI KOVACS Date: 09/25/2023 13:27
--- NOTE | 2023-09-25 11:15 | ECG_ITS ---
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
--- NOTE | 2023-09-25 11:16 | ED.SOB1 ---
HPI - SOB/Dyspnea General Chief Complaint: Shortness of Breath/Dyspnea Stated Complaint: COUGH Time Seen by Provider: 09/25/23 11:07 Source: patient and family Mode of arrival: walk-in Limitations: no limitations History of Present Illness HPI Narrative: 83-year-old female presents for cough and shortness breath. She states she's been sick for a month and over the past two weeks she's felt weak. She had an x-ray as an outpatient today that reportedly showed pneumonia and she had a reportedly elevated d-dimer and her PCP directed her here. The cough has been nonproductive. No fever or vomiting. Related Data Home Medications Medication Instructions Recorded Confirmed alprazolam 0.25 mg tablet 0.25 mg PO BID PRN anxiety 04/11/23 09/25/23 aspirin 81 mg tablet,delayed 81 mg PO DAILY 04/11/23 09/25/23 release carvedilol 3.125 mg tablet 3.125 mg PO Q12H 04/11/23 09/25/23 furosemide 20 mg tablet 20 mg PO DAILY 04/11/23 09/25/23 gabapentin 100 mg capsule 100 mg PO Q12H 04/11/23 09/25/23 pantoprazole 40 mg tablet,delayed 40 mg PO DAILY 04/11/23 09/25/23 release (Protonix) potassium chloride 10 mEq 10 meq PO DAILY 04/11/23 09/25/23 capsule,extended release pravastatin 40 mg tablet 40 mg PO .dinner 04/11/23 09/25/23 temazepam 15 mg capsule (Restoril) 15 mg PO .hs PRN sleep 04/11/23 09/25/23 clopidogrel 75 mg tablet 75 mg PO .QD 07/27/23 09/25/23 losartan 50 mg tablet 50 mg PO BID 07/27/23 09/25/23 furosemide 20 mg tablet (Lasix) 20 mg PO DAILY PRN weight gain 07/28/23 07/28/23 ropinirole 0.25 mg tablet 0.25 mg PO .dinner PRN restless 07/28/23 09/25/23 leg(s) Previous Rx's Medication Instructions Recorded cefuroxime axetil 500 mg tablet 500 mg PO BID 7 days #14 tabs 07/28/23 azithromycin 250 mg tablet See Rx Instructions PO .COMPLEX #6 09/25/23 (Zithromax Z-Tim) tabs Allergies Allergy/AdvReac Type Severity Reaction Status Date / Time amlodipine Allergy Verified 07/27/23 02:13 doxycycline Allergy Verified 07/27/23 02:13 duloxetine [From Cymbalta] Allergy Verified 07/27/23 02:13 ondansetron [From Zofran] Allergy Verified 07/27/23 02:13 sulfamethoxazole Allergy Verified 07/27/23 02:13 [From Bactrim] tetanus and diphtheria Allergy Verified 07/27/23 02:13 toxoids trimethoprim [From Bactrim] Allergy Verified 07/27/23 02:13 codeine AdvReac Severe Anxiety Verified 09/25/23 11:07 Review of Systems ROS Narrative A ten point review of systems is negative except as noted above. [facility] Medical History (Updated 09/25/23 @ 14:18 by Jordi Dupree MD) Coronary artery disease ?I25.10 - Atherosclerotic heart disease of [place] coronary artery without angina pectoris (ICD-10) COVID-19 ?U07.1 - COVID-19 (ICD-10) GERD (gastroesophageal reflux disease) ?K21.9 - Gastro-esophageal reflux disease without esophagitis (ICD-10) HTN (hypertension) ?I10 - Essential (primary) hypertension (ICD-10) Obesity ?E66.9 - Obesity, unspecified (ICD-10) Pneumonia due to COVID-19 virus ?U07.1 - COVID-19 (ICD-10) ?J12.82 - Pneumonia due to coronavirus disease 2019 (ICD-10) Surgical History Family History Brother Family history of diabetes mellitus Family history of cancer Sister Family history of cancer Social History Within the past year, how often did you have a drink containing alcohol: never Within the past year, how often did you have six or more drinks on one occasion: never Score interpretation: A score less than 3 is consistent with normal alcohol consumption. Smoking status: Never smoker Non-prescribed substance use: denies use Previous occupational history: retired Known occupational exposures/hazards: No Highest level of school completed/degree received: 11th grade Do you want help with school or training: No Are you now , , , , never or living with a partner: In a typical week, how many times do you talk on the telephone with family, friends, or neighbors: twice per week How often do you get together with friends or relatives: twice per week How often do you attend methodist or hoahaoism services: 1-3 times per year Do you belong to any clubs or organizations such as methodist groups unions, fraternal or athletic groups, or school groups: yes Total score: 3 Score interpretation: A score of greater than or equal to 2 indicates the lowest level of social isolation. Little interest or pleasure in doing things: not at all Feeling down, depressed, or hopeless: not at all Feel stressed/tense/nervous/anxious/difficulty sleeping: only a little Due to disability, difficulty making decisions: No Do you think of yourself as: straight/heterosexual Gender Identity: female Exam Narrative Exam Narrative: Nurses note and vital signs reviewed and patient is not hypoxic. General: The patient appears well and in no apparent distress. Patient is resting comfortably on cart. Skin: Warm, dry, no pallor noted. There is no rash noted. Head: Normocephalic, atraumatic Eye: Normal conjunctiva, no drainage Ears, Nose, Mouth, and Throat: oral mucosa is moist. Nares patent. Cardiovascular: Regular Rate and Rhythm Respiratory: Patient is in no distress, no accessory muscle use, lungs are clear to auscultation, no wheezing, rales or rhonchi; good air movement present Back: non-tender GI: soft and nontender Musculoskeletal: The patient has no evidence of calf tenderness, no pitting edema, symmetrical pulses noted bilaterally Neurological: A&O, normal speech Psychiatric: Cooperative Constitutional Vital Signs, click to edit/add: Last Vital Signs Temp 98.2 F 09/25/23 11:03 Pulse 55 L 09/25/23 13:30 Resp 21 09/25/23 13:30 BP 147/45 H 09/25/23 13:19 Pulse Ox 92 L 09/25/23 13:30 O2 Del Method Room Air 09/25/23 11:03 Course Vital Signs Vital signs: Vital Signs Temperature 98.2 F 09/25/23 11:03 Pulse Rate 70 09/25/23 11:03 Respiratory Rate 18 09/25/23 11:03 Blood Pressure 143/58 H 09/25/23 11:03 Pulse Oximetry 96 09/25/23 11:03 Oxygen Delivery Method Room Air 09/25/23 11:03 Temperature 98.2 F 09/25/23 11:03 Pulse Rate 55 L 09/25/23 13:30 Respiratory Rate 21 09/25/23 13:30 Blood Pressure 147/45 H 09/25/23 13:19 Pulse Oximetry 92 L 09/25/23 13:30 Oxygen Delivery Method Room Air 09/25/23 11:03 MDM - SOB/Dyspnea MDM Narrative Medical decision making narrative: CAT scan shows no evidence of PE or pneumonia. Case discussed with her PCP, Dr. Bateman, and the patient will be discharged home on Zithromax. Treatment diagnosis and follow-up were discussed with the patient and her . Differential Diagnosis Differential diagnosis: Likely congestive heart failure, community acquired pneumonia and pulmonary embolism Lab Data Attestation: I reviewed the patient's lab results. Labs: Lab Results 09/25/23 Range/Units 11:15 WBC 5.7 (4.0-11.0) 10^3/uL RBC 3.34 L (4.20-5.40) 10^6/uL Hgb 9.7 L (12.0-16.0) g/dL Hct 29.9 L (36.0-48.0) % MCV 89.5 (81.0-99.0) fL MCH 29.0 (26.7-34.0) pg MCHC 32.4 (29.9-35.2) g/dL RDW 13.3 (11.0-15.0) % Plt Count 314 (150-450) 10^3/uL MPV 10.1 (9.5-13.5) fL Neut % (Auto) 73.6 (43.0-75.0) % Lymph % (Auto) 9.8 L (20.5-60.0) % [place] % (Auto) 10.4 (1.7-12.0) % Eos % (Auto) 4.4 (0.9-7.0) % Baso % (Auto) 0.9 (0.2-2.0) % Neut # (Auto) 4.2 (1.4-6.5) 10^3/uL Lymph # (Auto) 0.6 L (1.2-3.8) 10^3/uL [place] # (Auto) 0.6 (0.3-0.8) 10^3/uL Eos # (Auto) 0.3 (0.0-0.7) 10^3/uL Baso # (Auto) 0.1 (0.0-0.1) 10^3/uL Abs Immat Gran (auto) 0.05 H (0.00-0.03) 10^3/uL Imm/Tot Granulo (auto) 0.9 H (0.0-0.5) % Sodium 137 (136-145) mmol/L Potassium 4.7 (3.5-5.1) mmol/L Chloride 100 (98-107) mmol/L Carbon Dioxide 28.6 (21.0-32.0) mmol/L Anion Gap 13.1 BUN 19.0 H (7.0-18.0) mg/dL Creatinine 1.25 H (0.55-1.02) mg/dL Est GFR ( Amer) 50 L (>=60) Est GFR (Non-Af Amer) 41 L (>=60) BUN/Creatinine Ratio 15.2 Glucose 110 H (74-106) mg/dL Calcium 8.7 (8.5-10.1) mg/dL Troponin I High Sens 8.2 (4.0-51.3) pg/mL Imaging Data CT scan - chest: Radiologist's impression: Procedure: CT angio chest CT angio chest: 09/25/2023 12:16 PM EST CLINICAL HISTORY: 83 years old Female with rule out PE. TECHNIQUE: CT angio chest was performed with axial CT images through the thorax as well as sagittal, coronal and oblique reformations also obtained after intravenous administration of intravenous contrast. COMPARISON: None FINDINGS: There are no filling defects in the main central pulmonary arteries. The heart is not enlarged. There is no pericardial effusion. No enlarged mediastinal or perihilar lymph nodes are noted. There is scattered calcified atherosclerotic disease of aorta. The lungs are clear. There is no pneumothorax or pleural effusion. The visualized portion of the upper abdomen is grossly unremarkable. The osseous structures are unremarkable. IMPRESSION: No pulmonary embolus. ECG Data Attestation: I personally reviewed and interpreted this ECG as follows: (EKG on my interpretation shows normal sinus rhythm with no acute findings.) Discharge Plan Discharge Chief Complaint: Shortness of Breath/Dyspnea Clinical Impression: Acute upper respiratory infection Patient Disposition: Home, Self-Care Time of Disposition Decision: 14:17 Condition: Good Mode of Transportation: Private Vehicle Prescriptions / Home Meds: New azithromycin [Zithromax Z-Tim] 250 mg tablet See Rx Instructions .ROUTE .COMPLEX Qty: 6 0RF Rx Instructions: For 250 mg dose pack: take 500 mg today (day 1), then 250 mg for 4 days (days 2-5) No Action alprazolam 0.25 mg tablet 0.25 mg PO BID PRN (Reason: anxiety) aspirin 81 mg tablet,delayed release (DR/EC) 81 mg PO DAILY furosemide 20 mg tablet 20 mg PO DAILY gabapentin 100 mg capsule 100 mg PO Q12H Patient Comments: can take in the afternoon if needed pantoprazole [Protonix] 40 mg tablet,delayed release (DR/EC) 40 mg PO DAILY potassium chloride 10 mEq capsule, extended release 10 meq PO DAILY Rx Instructions: takes with lasix- may take another dose in the evening if Lasix is taken pravastatin 40 mg tablet 40 mg PO .dinner temazepam [Restoril] 15 mg capsule 15 mg PO .hs PRN (Reason: sleep) carvedilol 3.125 mg tablet 3.125 mg PO Q12H Rx Instructions: must administer with a meal/food losartan 50 mg tablet 50 mg PO BID clopidogrel 75 mg tablet 75 mg PO .QD furosemide [Lasix] 20 mg tablet 20 mg PO DAILY PRN (Reason: weight gain) Rx Instructions: as needed in the evening if weight is greater than 200 lbs ropinirole 0.25 mg tablet 0.25 mg PO .dinner PRN (Reason: restless leg(s)) cefuroxime axetil 500 mg tablet 500 mg PO BID 7 Days Qty: 14 0RF Instructions: Upper Respiratory Infection (ED) Stand Alone Forms: Portal Instructions Referrals: Nathan Bateman DO [Primary Care Provider] - 1 week
[2023-09-25 11:36] LABS: Basophils Absolute Auto 0.1 10^3/uL (0.0-0.1); Basophils Percent Auto 0.9 % (0.2-2.0); Eosinophils Absolute Auto 0.3 10^3/uL (0.0-0.7); Eosinophils Percent Auto 4.4 % (0.9-7.0); Hematocrit 29.9 % (36.0-48.0); Hemoglobin 9.7 g/dL (12.0-16.0); Immature Granulocytes Abs Auto 0.05 10^3/uL (0.00-0.03); Immature Granulocytes Pct Auto 0.9 % (0.0-0.5); Lymphocytes Absolute Auto 0.6 10^3/uL (1.2-3.8); Lymphocytes Percent Auto 9.8 % (20.5-60.0); Mean Corpuscular HGB Conc 32.4 g/dL (29.9-35.2); Mean Corpuscular Volume 89.5 fL (81.0-99.0); Mean Platelet Volume 10.1 fL (9.5-13.5); Monocytes Absolute Auto 0.6 10^3/uL (0.3-0.8); Monocytes Percent Auto 10.4 % (1.7-12.0); Neutrophils Absolute Auto 4.2 10^3/uL (1.4-6.5); Neutrophils Percent Auto 73.6 % (43.0-75.0); Platelet Count 314 10^3/uL (150-450); Red Blood Count 3.34 10^6/uL (4.20-5.40); Red Cell Distribution Width 13.3 % (11.0-15.0); White Blood Count 5.7 10^3/uL (4.0-11.0)
[2023-09-25 11:55] LABS: Anion Gap 13.1; BUN Creatinine Ratio 15.2; Calcium 8.7 mg/dL (8.5-10.1); Carbon Dioxide 28.6 mmol/L (21.0-32.0); Chloride 100 mmol/L (98-107); Estimated GFR (African America 50 (>=60); Estimated GFR (Non-African Ame 41 (>=60); Glucose 110 mg/dL (74-106); Potassium 4.7 mmol/L (3.5-5.1); Sodium 137 mmol/L (136-145); Troponin I High Sensitivity 8.2 pg/mL (4.0-51.3)
== END 2023-09-25 14:27 | disposition home or self-care (01) ==
PROVIDERS: Emergency Provider Emergency Medicine; PCP Internal Medicine
DX: J06.9 Acute upper respiratory infection, unspecified (principal); R05.2 Subacute cough; R06.09 Other forms of dyspnea; R30.0 Dysuria; Z79.82 Long term (current) use of aspirin; Z79.899 Other long term (current) drug therapy; I25.10 Atherosclerotic heart disease of native coronary artery without angina pectoris; K21.9 Gastro-esophageal reflux disease without esophagitis; I10 Essential (primary) hypertension; E66.9 Obesity, unspecified; Z86.16 Personal history of COVID-19
CPT/HCPCS: 36415; 71046; 71275; 80048; 81001; 83880; 84484; 85025; 85027; 85378; 87086; 93005; 99285; Q9967

== ENCOUNTER 2023-09-28 14:01 | Emergency (ER) | payer MEDICARE, SELFPAY ==
[2023-09-28 14:08] VITALS: BP 181/62; PULSE 68; RESP 16; TEMP 36.5; O2SAT 97; BMI 31.2
--- NOTE | 2023-09-28 14:15 | ED.ALLEREA1 ---
HPI - Allergic Reaction General Chief complaint: Allergic Reaction Stated complaint: ALLERGIC REACTION Time Seen by Provider: 09/28/23 14:09 History of Present Illness HPI narrative: Patient developed swelling sensation of the tongue this afternoon. She had been taking azithromycin that was prescribed 09/25/23 for URI. She only has one dose left to take. She denied any chest pain, shortness of breath or other complaints. She did not take anything at home for this. She called her PCP and Dr Bateman directed her to the ED. Related Data Home Medications Medication Instructions Recorded Confirmed alprazolam 0.25 mg tablet 0.25 mg PO BID PRN anxiety 04/11/23 09/25/23 aspirin 81 mg tablet,delayed 81 mg PO DAILY 04/11/23 09/25/23 release carvedilol 3.125 mg tablet 3.125 mg PO Q12H 04/11/23 09/25/23 furosemide 20 mg tablet 20 mg PO DAILY 04/11/23 09/25/23 gabapentin 100 mg capsule 100 mg PO Q12H 04/11/23 09/25/23 pantoprazole 40 mg tablet,delayed 40 mg PO DAILY 04/11/23 09/25/23 release (Protonix) potassium chloride 10 mEq 10 meq PO DAILY 04/11/23 09/25/23 capsule,extended release pravastatin 40 mg tablet 40 mg PO .dinner 04/11/23 09/25/23 temazepam 15 mg capsule (Restoril) 15 mg PO .hs PRN sleep 04/11/23 09/25/23 clopidogrel 75 mg tablet 75 mg PO .QD 07/27/23 09/25/23 losartan 50 mg tablet 50 mg PO BID 07/27/23 09/25/23 furosemide 20 mg tablet (Lasix) 20 mg PO DAILY PRN weight gain 07/28/23 07/28/23 ropinirole 0.25 mg tablet 0.25 mg PO .dinner PRN restless 07/28/23 09/25/23 leg(s) Previous Rx's Medication Instructions Recorded cefuroxime axetil 500 mg tablet 500 mg PO BID 7 days #14 tabs 07/28/23 azithromycin 250 mg tablet See Rx Instructions PO .COMPLEX #6 09/25/23 (Zithromax Z-Tim) tabs prednisone 20 mg tablet 20 mg PO DAILY PRN as needed for 12/01/23 allergy symptoms #7 tabs Allergies Allergy/AdvReac Type Severity Reaction Status Date / Time azithromycin Allergy Severe Verified 09/28/23 14:15 amlodipine Allergy Verified 07/27/23 02:13 doxycycline Allergy Verified 07/27/23 02:13 duloxetine [From Cymbalta] Allergy Verified 07/27/23 02:13 ondansetron [From Zofran] Allergy Verified 07/27/23 02:13 sulfamethoxazole Allergy Verified 07/27/23 02:13 [From Bactrim] tetanus and diphtheria Allergy Verified 07/27/23 02:13 toxoids trimethoprim [From Bactrim] Allergy Verified 07/27/23 02:13 codeine AdvReac Severe Anxiety Verified 09/25/23 11:07 PFSH PFS Medical History (Updated 09/28/23 @ 14:19 by Rich Louis) Coronary artery disease ?I25.10 - Atherosclerotic heart disease of tribal coronary artery without angina pectoris (ICD-10) COVID-19 ?U07.1 - COVID-19 (ICD-10) GERD (gastroesophageal reflux disease) ?K21.9 - Gastro-esophageal reflux disease without esophagitis (ICD-10) HTN (hypertension) ?I10 - Essential (primary) hypertension (ICD-10) Obesity ?E66.9 - Obesity, unspecified (ICD-10) Pneumonia due to COVID-19 virus ?U07.1 - COVID-19 (ICD-10) ?J12.82 - Pneumonia due to coronavirus disease 2019 (ICD-10) Surgical History Family History Brother Family history of diabetes mellitus Family history of cancer Sister Family history of cancer Social History Within the past year, how often did you have a drink containing alcohol: never Within the past year, how often did you have six or more drinks on one occasion: never Score interpretation: A score less than 3 is consistent with normal alcohol consumption. Smoking status: Never smoker Non-prescribed substance use: denies use Previous occupational history: retired Known occupational exposures/hazards: No Highest level of school completed/degree received: 11th grade Do you want help with school or training: No Are you now , , , , never or living with a partner: In a typical week, how many times do you talk on the telephone with family, friends, or neighbors: twice per week How often do you get together with friends or relatives: twice per week How often do you attend confucianist or presybeterian services: 1-3 times per year Do you belong to any clubs or organizations such as confucianist groups unions, fraternal or athletic groups, or school groups: yes Total score: 3 Score interpretation: A score of greater than or equal to 2 indicates the lowest level of social isolation. Little interest or pleasure in doing things: not at all Feeling down, depressed, or hopeless: not at all Feel stressed/tense/nervous/anxious/difficulty sleeping: only a little Due to disability, difficulty making decisions: No Do you think of yourself as: straight/heterosexual Gender Identity: female Exam Narrative Exam Narrative: Nurses notes and vital signs reviewed and patient is not hypoxic. afebrile General: Well-appearing and in no apparent distress. Skin: Warm, dry, no pallor noted. No rash. Head: Normocephalic, atraumatic. Neck: Supple, non-tender. cervical lymphadenopathy. Eye: Pupils are equal, round and EOMI. No scleral icterus. Ears, Nose, Mouth, and Throat: Oral mucosa is moist, no posterior oropharynx erythema or swelling, no top of the tongue swelling - there is some swelling underneath the tongue but no tongue elevation or tenderness under the chin. The uvula is mid-line Cardiovascular: Regular Rate and Rhythm without murmur, gallop or rub. Respiratory: No accessory muscle use or respiratory distress. Lungs are clear to auscultation, no wheezing, rales or rhonchi Musculoskeletal: normal ROM, no extremity edema/swelling Neurological: A&O x4. No cranial nerve dysfunction observed. No truncal ataxia. Moves all extremities. Sensation intact. Psychiatric: Cooperative and interactive. Normal mood and affect. MDM - Allergic Reaction MDM Narrative Medical decision making narrative: the patient received IM Solu-Medrol and oral Benadryl. On recheck at 1535 she had decrease in the sensation in the mouth and there was no worsening of the swelling under the tongue. She was discharged home. She was instructed to discontinue the azithromycin. She was also instructed to continue take Benadryl as needed for any continued symptoms. Emergency Department return if she worsens. Discharge Plan Discharge Chief Complaint: Allergic Reaction Clinical Impression: Allergic reaction Patient Disposition: Home, Self-Care Time of Disposition Decision: 15:47 Prescriptions / Home Meds: New prednisone 20 mg tablet 20 mg PO DAILY PRN (Reason: as needed for allergy symptoms) Qty: 7 0RF No Action alprazolam 0.25 mg tablet 0.25 mg PO BID PRN (Reason: anxiety) aspirin 81 mg tablet,delayed release (DR/EC) 81 mg PO DAILY furosemide 20 mg tablet 20 mg PO DAILY gabapentin 100 mg capsule 100 mg PO Q12H Patient Comments: can take in the afternoon if needed pantoprazole [Protonix] 40 mg tablet,delayed release (DR/EC) 40 mg PO DAILY potassium chloride 10 mEq capsule, extended release 10 meq PO DAILY Rx Instructions: takes with lasix- may take another dose in the evening if Lasix is taken pravastatin 40 mg tablet 40 mg PO .dinner temazepam [Restoril] 15 mg capsule 15 mg PO .hs PRN (Reason: sleep) carvedilol 3.125 mg tablet 3.125 mg PO Q12H Rx Instructions: must administer with a meal/food losartan 50 mg tablet 50 mg PO BID clopidogrel 75 mg tablet 75 mg PO .QD furosemide [Lasix] 20 mg tablet 20 mg PO DAILY PRN (Reason: weight gain) Rx Instructions: as needed in the evening if weight is greater than 200 lbs ropinirole 0.25 mg tablet 0.25 mg PO .dinner PRN (Reason: restless leg(s)) cefuroxime axetil 500 mg tablet 500 mg PO BID 7 Days Qty: 14 0RF azithromycin [Zithromax Z-Tim] 250 mg tablet See Rx Instructions .ROUTE .COMPLEX Qty: 6 0RF Rx Instructions: For 250 mg dose pack: take 500 mg today (day 1), then 250 mg for 4 days (days 2-5) Instructions: General Allergic Reaction (ED) Stand Alone Forms: Portal Instructions Referrals: Nathan Bateman DO [Primary Care Provider] - 1 week
[2023-09-28] MEDS: METHYLPREDNISOLONE SOD SUCC PF 125 MG/2 ML VIAL IM (14:23)
[2023-09-28] MEDS: DIPHENHYDRAMINE HCL 25 MG CAPSULE PO (14:24)
--- NOTE | 2023-09-28 14:30 | PC.NURSE ---
no wheezing at this time. top and sides of tongue do not appear swollen but swelling observed to bilat sides of under tongue. Pt medicated and will continue to monitor
--- NOTE | 2023-09-28 15:05 | PC.NURSE ---
no change in swelling under tongue after medicated, swelling has not increased and swelling under tongue has not gone down. pt remains able to control secretions. Dr pace
[2023-09-28 16:05] VITALS: PULSE 62; RESP 16; O2SAT 94
== END 2023-09-28 16:05 | disposition home or self-care (01) ==
PROVIDERS: Emergency Provider Emergency Medicine; PCP Internal Medicine
DX: T78.40XA Allergy, unspecified, initial encounter (principal); I25.10 Atherosclerotic heart disease of native coronary artery without angina pectoris; K21.9 Gastro-esophageal reflux disease without esophagitis; I10 Essential (primary) hypertension; E66.9 Obesity, unspecified; Z86.16 Personal history of COVID-19; Z79.82 Long term (current) use of aspirin; Z79.899 Other long term (current) drug therapy; Z87.01 Personal history of pneumonia (recurrent); Z68.31 Body mass index [BMI] 31.0-31.9, adult
CPT/HCPCS: 96372; 99284; J2930

== ENCOUNTER 2023-10-23 09:08 | Outpatient (OUT) | payer MEDICARE, SELFPAY ==
[2023-10-23 10:01] LABS: Anion Gap 9.3; BUN Creatinine Ratio 22.9; Calcium 9.3 mg/dL (8.5-10.1); Carbon Dioxide 29.5 mmol/L (21.0-32.0); Chloride 105 mmol/L (98-107); Estimated GFR (African America 47 (>=60); Estimated GFR (Non-African Ame 39 (>=60); Glucose 103 mg/dL (74-106); Potassium 4.8 mmol/L (3.5-5.1); Sodium 139 mmol/L (136-145)
== END 2023-10-23 09:09 | disposition home or self-care (01) ==
LOC: LAB 09:12
PROVIDERS: PCP Internal Medicine; Visit Provider Internal Medicine Cardiovascular Disease
DX: I25.10 Atherosclerotic heart disease of native coronary artery without angina pectoris (principal); I10 Essential (primary) hypertension
CPT/HCPCS: 36415; 80048

== ENCOUNTER 2024-01-15 14:18 | Outpatient (OUT) | payer MEDICARE, SELFPAY ==
--- NOTE | 2024-01-15 | MM_ITS ---
Patient Name: LASHAUN JOAQUIN MR#: [id number] : 1940 Exam Date: 01/15/2024 Ordering Doctor: DR Nathan Bateman D.O. RADIOLOGY REPORT PROCEDURE: MM TOMOSYNTHESIS SCREENING BI COMPARISON: [facility] MAMM SCREEN 3D [facility] CAD, 01/04/2022. MG MAMM SCREEN 3D [facility] CAD, 01/08/2023. INDICATIONS: screening Calculator Name NCI Breast Cancer Risk Assessment Tool 5 Year Breast Cancer Risk 1.20% Lifetime Breast Cancer Risk 1.70% Personal Breast Cancer No Personal Ovarian Cancer No Treatments None Family Cancers Father with bladder cancer at age 67; Mother with lymphoma cancer at age 72; Sister with lymphoma cancer at age 60; Brother with colon cancer at age 77; Brother with bladder cancer at age 70; Brother with colon cancer at age 77; Brother with bladder cancer at age 67; Brother with lung cancer at age 60. LOCATION: [facility] BREAST COMPOSITION: Extremely dense, which lowers the sensitivity of mammography. FINDINGS: DIAGNOSTIC CATEGORY 2--BENIGN FINDING. NO CHANGE FROM COMPARISON. Scattered benign-appearing calcifications are present. Scattered benign-appearing lymph nodes are present. RIGHT BREAST: No significant suspicious finding. LEFT BREAST: No significant suspicious finding. RECOMMENDATIONS: ROUTINE MAMMOGRAM AND CLINICAL EVALUATION IN 12 MONTHS. PLEASE NOTE: A NORMAL MAMMOGRAM DOES NOT EXCLUDE THE POSSIBILITY OF BREAST CANCER. A CLINICALLY SUSPICIOUS PALPABLE LUMP SHOULD BE BIOPSIED. Dictated by: Ronnie Dominguez MD on 01/16/2024 at 09:40 Approved by: Ronnie Dominguez MD on 01/16/2024 at 09:46
--- NOTE | 2024-01-15 15:30 | CA_ITS ---
[facility] Test Date: 2024-01-29 Pat Name: LASHAUN JOAQUIN Department: Room: - Gender: Female [employer]: : 1940 Requested By: CHELSEA MAR Order Number: [id number] Reading MD: CHELSEA MAR Interpretive Statements Predominant rhythm is sinus with average rate of 49 bpm Tachycardia - max rate of 137 bpm (NSVT) - 13 episodes of PSVT w/ longest 10 beats at 129 bpm Bradycardia (91% burden) - min rate of 34 bpm Ventricular ectopy - 49 total, <1% - 44 PVC - 2 couplets 1 episode of NSVT w/ duration of 3 beats Patient triggered events: 4 - not associated with symptoms - associated with bradycardia - associated with rates Impression: Predominant rhythm is sinus with average rate of 49 bpm Fastest rate of 137 bpm (NSVT) and slowest rate of 34 bpm 91% bradycardia burden No atrial fibrillation No blocks or pauses Electronically Signed On 01-31-2024 7:12:18 EDT by CHELSEA MAR
== END 2024-01-15 14:19 | disposition home or self-care (01) ==
LOC: MAMMO 14:18
PROVIDERS: PCP Internal Medicine; Visit Provider Internal Medicine
DX: Z12.31 Encounter for screening mammogram for malignant neoplasm of breast (principal); R00.2 Palpitations; Z80.52 Family history of malignant neoplasm of bladder; Z80.7 Family history of other malignant neoplasms of lymphoid, hematopoietic and related tissues; Z80.0 Family history of malignant neoplasm of digestive organs; Z80.1 Family history of malignant neoplasm of trachea, bronchus and lung
CPT/HCPCS: 77063; 77067; 93246

== ENCOUNTER 2024-02-02 07:49 | Outpatient (OUT) | payer MEDICARE, SELFPAY ==
--- OUTSIDE RECORDS SUMMARY | 2024-02-02 07:53 | XMS_ITS | CCD ---
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 Name Role Phone Nathan Hathaway DO Primary Care Provider Nathan Hathaway Unavailable Unavailable Unavailable ISABELA, DR TRAN Primary Care Unavailable LIZZETTE, DR BRISSA Doherty Consulting Unavailabl e NADERER, DR ALLI Kta Admitting Unavailable NADERER, DR ALLI Kat Attending Unavailable NADERER, DR ALLI Kat Consulting Unavailable MAKENNA, LUCIANA Consulting Unavailable SAHU, ANTONIO Consulting Unavailable ABRAMES, EDWARD Michelle Consulting Unavailable BALL, DR TRAN Attending Unavailable BALL, DR TRAN Consulting Unavailable BALL, DR TRAN Admitting Unavailable BALL, DR TRAN Primary Care Unavailable JORGE, DR WILLIAM Jackson Consulting Unavailable BALL, DR TRAN Attending Unavailable BALL, DR TRAN Admitting Unavailable BALL, DR TRAN Primary Care Unavailable BALL, DR TRAN Consulting Unavailable BALL, DR TRAN Admitting Unavailable BALL, DR TRAN Primary Care Unavailable BALL, DR TRAN Consulting Unavailable BALL, DR TRAN Attending Unavailable BALL, DR TRAN Attending Unavailable BALL, DR TRAN Consulting Unavailable BALL, DR TRAN Admitting Unavailable BALL, DR TRAN Primary Care Unavailable JORGE, DR WILLIAM Jackson Consulting Unavailable BALL, DR TRAN Attending Unavailable BALL, DR TRAN Consulting Unavailable BALL, DR TRAN Admitting Unavailable BALL, DR TRAN Primary Care Unavailable JORGE, DR WILLIAM Jackson Consulting Unavailable BALL, DR TRAN Attending Unavailable BALL, DR TRAN Consulting Unavailable BALL, DR TRAN Admitting Unavailable BALL, DR TRAN Primary Care Unavailable DO Jonna Reyes Attending Provider [phone] DO Nathan Hathaway Primary Care Provider Nathan Hathaway Unavailable [place], Dr. Edinson Hinojosa Attending Darleneva ilkalen Hathaway, Dr. Nathan Maxwell Primary Care Ericka Reyes, Dr. Edinson Hinojosa Attending Aura Reyes, Dr. Edinson Hinojosa Referring Darleneva ilkalen Hathaway, Dr. Nathan Maxwell Primary Care Unavai DO Parris Vasquez Emergency Provider DO Lj Ryan Admit Provider DO Lj Ryan Attending Provider [phone] Jonna Reyes Attending Unavailable Jonna Reyes Admitting Unavailable Ball, Nathan Primary Care Unavailable Lj Ryan Attending Unavailable Lj Ryan Admitting Unavailable Ball, Nathan Primary Care Unavailable Jonan Reyse Attending Unavailable Jonna Reyes Admitting Unavailable Ball, Nathan Primary Care Unavailable Ball DO, Nathan E Primary Care Provider EDINSON REYES Attending Unavailable NATHAN HATHAWAY [place] Primary Care Unavailabl e BALL, NATHAN E Primary Care Unavailable BALL, NATHAN E Primary Care Unavailable LUIS MCKENZIE Attending Unavailable LUIS MCKENZIE Referring Unavailable LUIS MCKENZIE Referring Unavailable BALL, NATHAN E Primary Care Unavailable BALL, NATHAN E Primary Care Unavailable PAOLO CASILLAS Attending Unavailable LUIS MCKENZIE Referring Unavailable BALL, NATHAN E Primary Care Unavailable BALL, NATHAN E Primary Care Unavailable BALL, NATHAN E Primary Care Unavailable LUIS MCKENZIE Attending Unavailable Allergies Allergy Classification Reported Allergen(s) Allergy Type Date of Onset Reaction(s) Facility (20 sources) amLODIPine; Translations: [AMLODIPINE] Drug Allergy 07-27-20 Unknown [facility] (7 sources) Codeine / guaiFENesin; Translations: [CODEINE-GUAIFENESI N] Drug Allergy 07-27-20 Unknown [facility] (7 sources) Doxycycline; Translations: [DOXYCYCLINE HYCLATE] Drug Allergy 07-27-20 Unknown [facility] (20 sources) DULoxetine; Translations: [DULOXETINE] Drug Allergy 07-27-20 Unknown [facility] (8 sources) levoFLOXacin; Translations: [LEVOFLOXACIN] Drug Allergy 07-27-20 Unknown [facility] (8 sources) Ondansetron; Translations: [ONDANSETRON] Drug Allergy 07-27-20 Unknown [facility] (10 sources) Penicillins; Translations: [PENICILLINS] Propensity to adverse reactions to drug 07-27-20 Unknown [facility] (20 sources) Sulfamethoxazole / Trimethoprim; Translations: [Bactrim] Drug Allergy 07-27-20 Unknown [facility] (7 sources) Tetracycline (class of antibiotic); Translations: [TETRACYCLINES] Propensity to adverse reactions to drug 07-27-20 Unknown [facility] (7 sources) Iodine And Iodide Containing Products; Translations: [IODINE AND IODIDE CONTAINING PRODUCTS] Drug Allergy 01-20-20 21 Unknown [facility] (8 sources) Tetanus And Diphtheria Toxoids; Translations: [TETANUS AND DIPHTHERIA TOXOIDS] Propensity to adverse reactions to drug 07-27-20 Unknown [facility] (20 sources) Amoxicillin Drug Allergy 02-01-20 24 Unknown, Unknown Reaction [facility] (20 sources) Codeine / guaiFENesin Drug Allergy Unknown [facility] [employer] Other (20 sources) Doxycycline Drug Allergy 12-09-19 19 Unknown, Unknown Reaction [facility] (20 sources) levoFLOXacin Drug Allergy Unknown [facility] Other (20 sources) Ondansetron; Translations: [Zofran] Drug Allergy 11-05-19 Unknown [facility] Repository (20 sources) Tetanus-Diphtheria Toxoids Td Drug allergy Unknown [facility] Other (20 sources) Allopurinol Drug Allergy Unknown [facility] Repository (1 source) amLODIPine Drug Allergy 11-05-19 20 [facility] (1 source) Doxycycline Drug Allergy [facility] (1 source) DULoxetine Drug Allergy 11-05-19 20 [facility] (1 source) Iodine (And Iodine Containting Drugs) Drug allergy (disorder) 01-20-20 [facility] (1 source) Sulfamethoxazole / Trimethoprim Drug Allergy 11-05-19 20 [facility] (4 sources) Sulfonamides (Antibiotic); Translations: [Sulfa (Sulfonamide Antibiotics)] Allergy to substance 03-08-20 Rash [facility] (3 sources) Sulfamethoxazole; Translations: [sulfamethoxazole] Drug Allergy 03-09-20 Unknown Reaction [facility] (3 sources) Trimethoprim; Translations: [trimethoprim] Drug Allergy 03-09-20 Unknown Reaction [facility] (1 source) Doxycycline Drug Allergy 03-09-20 [facility] Repository (1 source) Penicillins Drug allergy (disorder) 03-08-20 [facility] Repository (20 sources) Pseudoephedrine Drug Allergy 10-29-19 Unknown [facility] Other (20 sources) Tetracycline Drug Allergy Unknown [facility] Other (20 sources) Cheratussin AC *COUGH/COLD/ALLERGY * Propensity to adverse reactions 10-29-19 Unknown [facility] Other (20 sources) Zofran *ANTIEMETICS* Propensity to adverse reactions 10-29-19 Unknown [facility] Other (5 sources) amLODIPine Drug Allergy Unknown [facility] Other (6 sources) Azithromycin; Translations: [AZITHROMYCIN] Drug Allergy 10-17-20 [place] [id number] Repository (1 source) Codeine Drug Allergy 02-01-20 24 Unknown Reaction [facility] (1 source) guaiFENesin Drug Allergy 02-01-20 24 Unknown Reaction [facility] (1 source) 12 Hour Decongestant Allergy to substance 02-01-20 24 Unknown Reaction [facility] (1 source) Cheratussin AC *COUGH/COLD/ALL Allergy to substance 02-01-20 24 Unknown Reaction [facility] Medications Current Medications Medication Drug Class(es) Dates Sig (Normalized) Sig (Original) AeroChamber Mini Chamber - (5 sources) Start: 04-20-2023 AeroChamber Mini Chamber - Use with MDI every 6 hours as needed inhaled every 6 hours as needed for 30 days Mar, Active [id number] 200 actuat albuterol 0.09 mg/actuat metered dose inhaler (20 sources) beta2-Adrenergic Agonist Start: 01-31-2024 take 1 puff(s) by inhalation every six hours Albuterol Sulfate Active 2 PUFF INHALATION Every 6 hours January 31, 2024 12:00am Start: 04-20-2023 take 2 puff(s) by in halation every six hours as needed for cough Albuterol Sulfate HFA 108 (90 Base) MCG/ACT 2 puff Inhalation every 6 hours as needed for cough, SOB Mar, Active Start: 04-20-2023 take 2 puff(s) by in halation every six hours as needed for cough Albuterol Sulfate HFA 108 (90 Base) MCG/ACT 2 puff Inhalation every 6 hours as needed for cough, SOB Mar, Active Start: 04-20-2023 take 2 puff(s) by in halation every six hours as needed for cough Albuterol Sulfate HFA 108 (90 Base) MCG/ACT 2 puff Inhalation every 6 hours as needed for cough, SOB Mar, Active Start: 02-28-2014 take 2 puff(s) by in halation every four hours as needed for cough Albuterol Sulfate HFA 108 (90 Base) MCG/ACT 2 puffs as needed Inhalation every 4 hrs for As needed for cough or wheeze February, Not-Taking ALPRAZolam 0.25 mg oral tablet (20 sources) Benzodiazepine Start: 01-31-2024 take 0.25 mg by mouth every eight hours Alprazolam Active 0.25 MG PO .q8hrs January 31, 2024 10:33am Start: 03-22-2023 take 1 tablet by tina th every eight hours as needed for anxiety ALPRAZolam 0.25 MG TAKE 1 TABLET BY MOUTH EVERY 8 HOURS NEEDED FOR ANXIETY for 90 February, Active Start: 03-08-2023 End: 01-31-2024 take 0.25 mg by mouth three times daily Alprazolam Discontinued 0.25 MG PO Three times daily March 08, 2023 12:00am January 31, 2024 10:39am ALPRAZolam 0.25 MG Oral Tablet Disintegrating PLACE 1 TABLET by mouth as needed Quantity: 0 Refills: 0 Ordered: 07-Mar-2023 DO Active take 1 tablet by tina th every twelve hours ALPRAZolam 0.25 MG 1 tablet Orally Twice a day Active Comment on above: Take 0.25 mg by mout h three times daily as needed. aspirin 81 mg delayed release oral tablet (20 sources) Platelet Aggregation Inhibitor, Nonsteroidal Anti-inflammatory Drug Start: 04-18-2023 take 1 tablet by mouth once daily Aspirin 81 81 MG 1 tablet Orally Once a day Mar, Active Start: 03-07-2023 take 81 mg by mouth once daily in the morning Aspirin Active 81 MG PO Every morning March 08, 2023 12:00am aspirin 81 mg ca p Take by mouth. 0 Active Comment on above: Take by mouth. azithromycin 250 mg oral tablet (10 sources) Macrolide Antimicrobial Start: 09-11-2023 Azithromycin 250 MG as directed Orally daily for 5 days Aug, Active Start: 04-26-2023 Azithromycin 2 50 MG as directed Orally daily for 5 days Mar, Active 120 actuat budesonide 0.16 mg/actuat / formoterol fumarate 0.0048 mg/actuat / glycopyrrolate 0.009 mg/actuat metered dose inhaler (1 source) Corticosteroid, beta2-Adrenergic Agonist Start: 05-09-2023 take 2 puff(s) by inhalation twice daily Breztri Aerosphere 160-9-4.8 MCG/ACT 2 puffs Inhalation Twice a day Sample 12 Apr, 2023 Active carvedilol 3.125 mg oral tablet (20 sources) alpha-Adrenergic Stefan, beta-Adrenergic Stefan Start: 01-31-2024 take 3.125 mg by mouth twice daily Carvedilol Active 3.125 MG PO Twice daily January 31, 2024 12:00am Start: 05-18-2023 End: 05-18-2023 Carvedilol Discontinued 12.5 MG PO Twice daily May 18, 2023 11:38am May 18, 2023 2:48pm Please do not take if you are feeling lightheaded or have a blood pressure less than 120 systolic at home Start: 05-18-2023 End: 01-31-2024 take 1 tablet by mouth twice daily at mealtime Carvedilol (Coreg) 12.5 mg tablet Discontinued 12.5 MG PO Twice daily 60 May 18, 2023 12:00am January 31, 2024 10:34am must administer with a meal/food Start: 02-14-2023 End: 05-18-2023 take 3.125 mg by mouth twice daily Carvedilol Discontinued 3.125 MG PO Twice daily March 08, 2023 12:00am May 18, 2023 11:39am Comment on above: TAKE 1 TABLET BY TINA TH TWICE A DAY WITH FOOD/MEAL clopidogrel 75 mg oral tablet (20 sources) [id number] Platelet Inhibitor Start: 05-09-2023 take 75 mg by mouth once daily Clopidogrel Active 75 MG PO Daily May 17, 2023 12:00am Start: 05-09-2023 clopidogrel (P LAVIX) 75 mg tablet TAKE 8 TABLETS BY MOUTH ON DAY ONE THEN TAKE 1 TABLET BY MOUTH DAILY 0 05/09/2023 Active Comment on above: TAKE 8 TABLETS BY MO UTH ON DAY ONE THEN TAKE 1 TABLET BY MOUTH DAILY codeine phosphate 2 mg/ml / guaiFENesin 20 mg/ml oral solution (6 sources) Opioid Agonist Start: 3 take 10 mL by mouth four times daily as needed for cough guaiFENesin-Codeine 100-10 MG/5ML 10 mL as needed Orally qid as needed for cough for 7 days Aug, Active enteric contrast (will be provided with radiology test) (1 source) Start: 2 End: 2 enteric contrast (will be provided with radiology test) For CT CHESTABD/PEL W IVCON Routine order Administer, As Directed One Time Only, via Oral, Rectal, both Oral and Rectal, Enteric Tube, Stoma or Indwelling Catheter, Enteric Contrast as designated per enteric contrast guidelines 1 Each 0 05/29/2022 05/30/2022 Active Comment on above: For CT CHESTABD/PEL W IVCON Routine order Administer, As Directed One Time Only, via Oral, Rectal, both Oral and Rectal, Enteric Tube, Stoma or Indwelling Catheter, Enteric Contrast as designated per enteric contrast guidelines Fluticasone Propion-Salmeterol (17 sources) Corticosteroid, beta2-Adrenergic Agonist Start: 3 take 1 puff(s) by inhalation twice daily Fluticasone Propion-Salmeterol (Advair Hfa) 115-21 mcg/actuation HFA aerosol inhaler Active 2 PUFF INHALATION Twice daily May 17, 2023 12:00am Start: 05-16-2023 take 2 puff(s) by in halation twice daily Fluticasone-Salmeterol 115-21 MCG/ACT 2 puffs Inhalation Twice a day Apr, Active Fluticasone-Salmeterol 115-21 MCG/ACT (16 sources) Start: 05-16-2023 take 2 puff(s) by inhalation twice daily Fluticasone-Salmeterol 115-21 MCG/ACT 2 puffs Inhalation Twice a day Apr, Active Start: 05-16-2023 take 2 puff(s) by in halation twice daily Fluticasone-Salmeterol 115-21 MCG/ACT 2 puffs Inhalation Twice a day for 30 days Apr, Active gabapentin 100 mg oral capsule (20 sources) Anti-epileptic Agent Start: 03-08-2023 take 100 mg by mouth three times daily Gabapentin Active 100 MG PO Twice daily March 08, 2023 12:00am may take tid if needed take 1 capsule by mouth twice da layne Gabapentin 100 MG TAKE 1 CAPSULE BY MOUTH TWICE DAILY Active take 1 capsule by mo ut every twenty-four hours Gabapentin 100 MG 1 capsule Orally Once a day Active Comment on above: Take 100 mg by mouth twice daily. irbesartan 150 mg oral tablet (20 sources) Angiotensin 2 Receptor Stefan Start: take 150 mg by mouth once daily in the morning Irbesartan Active 150 MG PO Every morning March 08, 2023 12:00am take 1 tablet by mouth twice hair ly Irbesartan 150 MG 1 tablet Orally twice daily Active iv contrast (will be provided with radiology test) (1 source) Start: 05-29-2022 End: 05-30-2022 iv contrast (will be provided with radiology test) CT Chest ABD/PEL-Inject, intravenously, once for 1 dose.No IV access, insert saline lock prior to the beginning of sedation, infusion, injection of imaging exam. Discontinue saline lock post exam. If Pt. has a central line or IVAD, may access for administration according to line specific nursing protocol. Once exam is complete flush line and de-access according to line specific nursing protocol in the CT contrast administration guidelines link. 1 Each 0 05/29/2022 05/30/2022 Active Comment on above: CT Chest ABD/PEL-Inject, intravenously, once for 1 dose.No IV access, insert saline lock prior to the beginning of sedation, infusion, injection of imaging exam. Discontinue saline lock post exam. If Pt. has a central line or IVAD, may access for administration according to line specific nursing protocol. Once exam is complete flush line and de-access according to line specific nursing protocol in the CT contrast administration guidelines link. losartan potassium 50 mg oral tablet (20 sources) Angiotensin 2 Receptor Stefan Start: 04-04-2024 take 50 mg by mouth twice daily Losartan Active 50 MG PO Twice daily January 31, 2024 12:00am Start: 06-15-2023 take 1 tablet by tina twice daily Losartan Potassium 50 MG 1 tablet Orally twice daily May, Active take 1 tablet by tina once daily Losartan Potassium 50 MG 1 tablet Orally Once a day for 90 days Active take 1 tablet by tina once daily losartan (COZAAR) 100 mg tablet Take 100 mg by mouth once daily. 0 Active Comment on above: Take 100 mg by mouth once daily. nitrofurantoin, macrocrystals 25 mg / nitrofurantoin, monohydrate 75 mg oral capsule (11 sources) Nitrofuran Antibacterial Start: 07-18-20 take 1 capsule by mouth every twelve hours Nitrofurantoin Monohyd Macro 100 MG 1 capsule with food Orally every 12 hrs for 5 days Jun, Active pantoprazole 40 mg delayed release oral tablet (20 sources) Proton Pump Inhibitor Start: 07-05-20 21 take 40 mg by mouth once daily in the morning Pantoprazole Active 40 MG PO Every morning March 08, 2023 12:00am Pantoprazole Sod ium 40 MG Oral Packet Take 1 tablet by mouth on a empty stomach Quantity: 0 Refills: 0 Ordered: 07-Mar-2023 DO Active Pantoprazole Sod ium Not-Taking potassium chloride 10 meq extended release oral tablet (20 sources) Start: 03-08-2023 Potassium Chlo ride Active 10 MEQ PO EVERY 3 WEEKS March 08, 2023 12:00am 3 times a week on even days Start: 03-08-2023 take 10 mEq by mouth once daily in the morning Potassium Chloride Active 10 MEQ PO Every morning March 08, 2023 12:00am take 1 tablet by tina at mealtime, then take 1 tablet by mouth once daily K-Tab 10 MEQ 1 tablet with food Orally 1 -2 tabs daily with furosemide for 90 days Active take 1 tablet by tina every other day at mealtime K-Tab 10 MEQ 1 tablet with food Orally qod for 90 days Active take 1 tablet by mouth once marylin y Potassium Chloride Iram ER 10 MEQ Oral Tablet Extended Release TAKE 1 TABLET DAILY. Quantity: 90 Refills: 3 Ordered: 07-Mar-2023 DO Active pravastatin sodium 40 mg oral tablet (20 sources) HMG-CoA Reductase Inhibitor Start: 03-08-2023 take 40 mg by mouth once daily in the evening Pravastatin Active 40 MG PO Every evening March 08, 2023 12:00am Comment on above: Take 40 mg by mouth every evening. rOPINIRole 0.25 mg oral tablet (20 sources) Nonergot Dopamine Agonist Start: 12-18-2023 End: 12-18-2023 take 0.25 mg by mouth once daily Ropinirole Active 0.25 MG PO Daily 90 90 December 18, 2023 10:31am Start: 11-23-2022 End: 05-17-2023 take 0.25 mg by mouth once daily at bedtime Ropinirole Discontinued 0.25 MG PO Daily at bedtime March 08, 2023 12:00am May 17, 2023 10:51am temazepam 15 mg oral capsule (20 sources) Benzodiazepine Start: 11-27-2023 take 1 capsule by mouth once daily at bedtime Temazepam 15 MG TAKE 1 CAPSULE BY MOUTH AT BEDTIME Orally qHS for 90 days Oct, Active Start: 12-21-2022 take 1 capsule by mo uth at bedtime Temazepam 15 MG 1 capsule Orally at HS for 90 days May, Active Temazepam Not-Reji asher Comment on above: Take by mouth at bed time as needed. triamcinolone acetonide 0.001 mg/mg oral paste (20 sources) Corticosteroid Start: 01-31-2024 Triamcinolone Acetonide Active 1 APPLIC TOPICAL Twice daily January 31, 2024 12:00am Start: 01-31-2024 Triamcinolone Acetonide Active 1 APPLIC DENTAL January 31, 2024 12:00am 1 application do not rinse afterwards and avoid eating or drinking for 30 minutes Mouth/Throat Twice a day Start: 08-16-2023 Triamcinolone Acetonide 0.1 % 1 application do not rinse afterwards and avoid eating or drinking for 30 minutes Mouth/Throat Twice a day for 7 days Jul, Active Start: 04-05-2023 Triamcinolone Acetonide 0.5 % 1 application Externally Two times a day for 14 days Mar, Active Start: 04-05-2023 Triamcinolone Acetonide 0.5 % 1 application Externally Two times a day for 14 days Mar, Active {20 (nirmatrelvir 150 MG Oral Tablet) / 10 (ritonavir 100 MG Oral Tablet) } Pack [Paxlovid 5-Day] (9 sources) Start: 07-23-2023 take 3 tablets by mouth every twelve hours Paxlovid (300/100) 20 x 150 MG & 10 x 100MG 3 tablets Orally Twice a day for 5 days Jun, Active Completed/Discontinued Medications Medication Drug Class(es) Dates Sig (Normalized) Sig (Original) ascorbic acid 500 mg oral tablet (3 sources) Vitamin C Start: 03-08-2023 End: 05-17-2023 take 1 tablet by mouth once daily Ascorbic Acid (Vitamin C) (Vitamin C) 500 mg Tablet Discontinued 500 MG PO Daily March 08, 2023 12:00am May 17, 2023 10:50am benazepril (20 sources) Angiotensin Converting Enzyme Inhibitor Benazepril HCl Not-Taking benzonatate 100 mg oral capsule (20 sources) Non-narcotic Antitussive Start: 02-28-2014 take 1 capsule by mouth every eight hours Benzonatate 100 MG 1 capsule as needed Orally Three times a day for As needed for cough or wheeze February, Not-Taking busPIRone (20 sources) busPIRone HCl Not-Taking Calcium Carbonate (6 sources) calcium carbonat e (CALCIUM 600 ORAL) Take by mouth. 0 Active Comment on above: Take by mouth. calcium carbonate 1500 mg / cholecalciferol 0.01 mg oral tablet (3 sources) Vitamin D Start: 03-08-2023 End: 05-17-2023 take 1 tablet by mouth once daily Calcium Carbonate-Vitamin D3 (Calcium 600 + D(3)) 600 mg-10 mcg (400 unit) Tablet Discontinued 1 TAB PO Daily March 08, 2023 12:00am May 17, 2023 10:50am furosemide 20 mg oral tablet (20 sources) Loop Diuretic Start: 05-18-2023 furosemide (LASIX) 20 mg tablet Start: 03-21-2023 Furosemide 20 MG Oral Tablet one tablet M, W, F Quantity: 36 Refills: 3 Ordered: 21-Mar-2023 Edinson Reeys DO Start : 21-Mar-2023 Active new dose Start: 03-08-2023 End: 05-18-2023 Furosemide Discontinued 20 M G PO every other day March 08, 2023 12:00am May 18, 2023 11:39am on even days 3 times a week Start: 03-08-2023 take 20 mg by mouth once daily in the morning Furosemide Active 20 MG PO Every morning March 08, 2023 12:00am Furosemide 20 MG TAKE 1 TABLET BY MOUTH 1 TO 2 TIMES DAILY NEEDED for 90 Active MULTI-VITAMIN ORAL (6 sources) MULTI-VITAMIN OR AL Take by mouth. 0 Active Comment on above: Take by mouth. Multivitamin preparation (3 sources) Start: 03-08-2023 End: 05-17-2023 take 1 tablet by mouth once daily Multivitamin Discontinued 1 TAB PO Daily March 08, 2023 12:00am May 17, 2023 10:50am Start: 03-08-2023 take 1 tablet by tina th once daily Multivitamin Active 1 TAB PO Daily March 08, 2023 12:00am 24 hr nitroglycerin 0.2 mg/hr transdermal system (5 sources) Nitrate Vasodilator Start: 03-08-2023 End: 05-17-2023 Nitroglycerin Discontinued 0.2 MG TRANSDERML Daily March 08, 2023 12:00am May 17, 2023 10:50am Start: 03-07-2023 apply 1 dose transde rmal route once daily, then apply 1 dose transdermal route every twenty-four hours Nitroglycerin 0.2 MG/HR Transdermal Patch 24 Hour APPLY PATCH FOR 12 TO 14 HOURS DAILY, THEN REMOVE Quantity: 90 Refills: 3 Ordered: 07-Mar-2023 Edinson Reyes DO Start : 07-Mar-2023 Active new start predniSONE 20 mg oral tablet (20 sources) Start: 02-28-2014 take 1 tablet by mouth every twelve hours predniSONE 20 MG 1 tablet with food or milk Orally Twice a day for 3 day(s) February, Not-Taking Psyllium Husk (Metamucil) 0.4 gram Capsule (3 sources) Start: 03-08-2023 End: 05-17-2023 Psyllium Husk (Metamucil) 0.4 gram Capsule Discontinued 0.4 GM PO Daily March 08, 2023 12:00am May 17, 2023 10:50am Start: 03-08-2023 Psyllium Husk (Metamucil) 0.4 gram Capsule Active 0.4 GM PO Daily March 08, 2023 12:00am sulfamethoxazole 800 mg / trimethoprim 160 mg oral tablet (20 sources) Dihydrofolate Reductase Inhibitor Antibacterial, Sulfonamide Antimicrobial Start: 10-27-2022 take 1 tablet by mouth every twelve hours Bactrim DS 800-160 MG 1 tablet Orally Twice a day for 5 days Sep, Not-Taking ticagrelor 90 mg oral tablet (7 sources) Start: 03-09-2023 End: 05-17-2023 take 1 tablet by mouth twice daily Ticagrelor (Brilinta) 90 mg tablet Discontinued 90 MG PO Twice daily 180 March 09, 2023 12:00am May 17, 2023 2:07pm Problems Active Problems Problem Classification Problem Date Documented Da te Episodic/Chronic Acute bronchitis (20 sources) Acute bronchitis; Translations: [Acute bronchitis, unspecified] Onset: 02-29-2016 Episodic Anxiety disorders (20 sources) Generalized anxiety disorder; Translations: [Generalized anxiety disorder] Chronic Chronic obstructive pulmonary disease and bronchiectasis (20 sources) Simple chronic bronchitis; Translations: [Simple chronic bronchitis] Chronic Congestive heart failure; nonhypertensive (20 sources) Acute on chronic diastolic heart failure; Translations: [Acute on chronic diastolic (congestive) heart failure] Onset: 02-14-2023 Chronic Coronary atherosclerosis and other heart disease (20 sources) Angina, class III; Translations: [Other and unspecified angina pectoris] Onset: 03-09-2023 Chronic Coronary atherosclerosis and other heart disease (3 sources) Patient post percutaneous transluminal coronary angioplasty; Translations: [Percutaneous transluminal coronary angioplasty status] Onset: 10-17-2023 Episodic Deficiency and other anemia (20 sources) Anemia; Translations: [Anemia, unspecified] 06-04-2023 Episodic Deficiency and other anemia (4 sources) Anemia, unspecified; Translations: [ANEMIA UNSPECIFIED] Onset: 03-07-2023 Episodic Diseases of mouth; excluding dental (20 sources) Stomatitis; Translations: [Other forms of stomatitis] Resolved: 03-24-2020 Episodic Disorders of lipid metabolism (20 sources) Pure hypercholesterolemia; Translations: [Familial hypercholesterolemia] Onset: 10-29-1957 Chronic E Codes: Adverse effects of medical drugs (20 sources) Adverse reaction to drug; Translations: [Adverse effect of unspecified drugs, medicaments and biological substances, subsequent encounter] Episodic Esophageal disorders (20 sources) Gastro-esophageal reflux disease with esophagitis; Translations: [Gastroesophageal reflux disease with esophagitis without hemorrhage] Onset: 02-14-2023 01-31-2024 Chronic Essential hypertension (20 sources) Essential hypertension; Translations: [Essential (primary) hypertension] Onset: 03-01-2023 Chronic Genitourinary symptoms and ill-defined conditions (20 sources) Urinary tract infectious disease; Translations: [Unspecified symptoms and signs involving the genitourinary system] Episodic Headache; including migraine (20 sources) Episodic tension-type headache; Translations: [Episodic tension-type headache, not intractable] Onset: 10-19-2015 Chronic Hypertension with complications and secondary hypertension (5 sources) Hypertensive heart disease with heart failure; Translations: [Hypertensive emergency] Onset: 02-14-2023 05-17-2023 Chronic Immunizations and screening for infectious disease (20 sources) Other specified abnormal immunological findings in serum; Translations: [Abnormal blood test] 01-31-2024 Episodic Lymphadenitis (20 sources) Submandibular lymphadenopathy; Translations: [Localized enlarged lymph nodes] Onset: 09-11-2022 Episodic Malaise and fatigue (20 sources) Malaise; Translations: [Other malaise] Resolved: 08-18-2020 01-31-2024 Episodic Menopausal disorders (20 sources) Atrophic vaginitis; Translations: [Postmenopausal atrophic vaginitis] 01-31-2024 Chronic Miscellaneous mental health disorders (20 sources) Primary insomnia; Translations: [Primary insomnia] Chronic Neoplasms of unspecified nature or uncertain behavior (20 sources) Monoclonal paraproteinemia; Translations: [Monoclonal gammopathy] Chronic Osteoarthritis (20 sources) Osteoarthritis; Translations: [Polyosteoarthritis, unspecified] Onset: 05-24-2015 Chronic Other aftercare (1 source) shelter (current) use of aspirin; Translations: [[employer] WORK[employer] CURRENT USE OF ASPIRIN] Onset: 02-14-2023 Episodic Other aftercare (1 source) Other correction (current) drug therapy; Translations: [OTH RESIDENTIAL CURRENT DRUG THERAPY] Onset: 02-14-2023 Episodic Other and ill-defined heart disease (1 source) Heart disease; Translations: [Heart disease, unspecified] 06-06-2023 Chronic Other and unspecified benign neoplasm (20 sources) Lipoma of skin and subcutaneous tissue of neck; Translations: [Benign lipomatous neoplasm of skin and subcutaneous tissue of head, face and neck] Episodic Other and unspecified benign neoplasm (20 sources) Lipoma of skin and subcutaneous tissue of face; Translations: [Benign lipomatous neoplasm of skin and subcutaneous tissue of head, face and neck] Episodic Other connective tissue disease (20 sources) Radial styloid tenosynovitis; Translations: [Radial styloid tenosynovitis [de Quervain]] 01-31-2024 Episodic Other connective tissue disease (20 sources) Pain in right lower limb; Translations: [Pain in right leg] Episodic Other connective tissue disease (20 sources) Trochanteric bursitis of right hip; Translations: [Trochanteric bursitis, right hip] Episodic Other connective tissue disease (1 source) Radial styloid tenosynovitis [de Quervain]; Translations: [Radial styloid tenosynovitis [de Quervain]] Episodic Other diseases of veins and lymphatics (20 sources) Peripheral venous insufficiency; Translations: [Venous insufficiency (chronic) (peripheral)] 01-31-2024 Episodic Other diseases of veins and lymphatics (18 sources) Venous insufficiency (chronic) (peripheral); Translations: [Venous (peripheral) insufficiency, unspecified] Episodic Other diseases of veins and lymphatics (20 sources) Stasis dermatitis; Translations: [Venous insufficiency (chronic) (peripheral)] Episodic Other endocrine disorders (20 sources) Disorder of adrenal gland; Translations: [Disorder of adrenal gland, unspecified] Chronic Other endocrine disorders (20 sources) Other specified disorders of adrenal gland; Translations: [Nodule of adrenal cortex (disorder)] Chronic Other endocrine disorders (1 source) Disorder of adrenal gland, unspecified Chronic Other endocrine disorders (1 source) Adrenal mass; Translations: [Other specified disorders of adrenal gland] 01-31-2024 Chronic Other eye disorders (20 sources) Ptosis of eyelid; Translations: [Unspecified ptosis of right eyelid] Episodic Other female genital disorders (20 sources) Noninflammatory disorder of the vagina; Translations: [Other specified noninflammatory disorders of vagina] Episodic Other gastrointestinal disorders (20 sources) Irritable bowel syndrome with diarrhea; Translations: [Irritable bowel syndrome with diarrhea] 01-31-2024 Chronic Other hematologic conditions (3 sources) Protein electrophoresis abnormal; Translations: [Other specified abnormalities of plasma proteins] Episodic Other hematologic conditions (1 source) Other specified abnormalities of plasma proteins; Translations: [OTH SPEC ABNORM PLASMA PROTEINS] Onset: 02-14-2023 Episodic Other hereditary and degenerative nervous system conditions (20 sources) Restless legs; Translations: [Restless legs syndrome] 01-31-2024 Chronic Other hereditary and degenerative nervous system conditions (4 sources) Restless legs syndrome Chronic Other injuries and conditions due to external causes (20 sources) History of fall; Translations: [History of falling] Episodic Other injuries and conditions due to external causes (20 sources) Angioedema; Translations: [Angioneurotic edema, initial encounter] Episodic Other lower respiratory disease (2 sources) Multiple nodules of lung; Translations: [Other nonspecific abnormal finding of lung field] Episodic Other lower respiratory disease (20 sources) Lung field abnormal; Translations: [Other nonspecific abnormal finding of lung field] Episodic Other lower respiratory disease (20 sources) Solitary nodule of lung; Translations: [Solitary pulmonary nodule] Episodic Other lower respiratory disease (2 sources) Solitary pulmonary nodule Episodic Other lower respiratory disease (2 sources) Other forms of dyspnea Episodic Other lower respiratory disease (3 sources) Dyspnea on exertion; Translations: [Shortness of breath] Episodic Other lower respiratory disease (7 sources) Shortness of breath; Translations: [SHORTNESS OF BREATH] Onset: 02-08-2023 Episodic Other lower respiratory disease (2 sources) Acute cardiac pulmonary edema ; Translations: [Acute pulmonary edema] 05-17-2023 Episodic Other lower respiratory disease (2 sources) Hypoxia; Translations: [Hypoxemia] 05-17-2023 Episodic Other lower respiratory disease (2 sources) Acute pulmonary edema; Translations: [Acute edema of lung, unspecified] Onset: 05-17-2023 05-18-2023 Episodic Other lower respiratory disease (1 source) Hypoxemia; Translations: [Hypoxemia] 05-18-2023 Episodic Other nervous system disorders (20 sources) Neuropathy; Translations: [Polyneuropathy, unspecified] Chronic Other nervous system disorders (20 sources) Peripheral nerve disease ; Translations: [Polyneuropathy, unspecified] Chronic Other nervous system disorders (1 source) Idiopathic progressive neuropathy Chronic Other nervous system disorders (19 sources) Polyneuropathy; Translations: [Polyneuropathy, unspecified] Chronic Other nervous system disorders (1 source) Polyneuropathy, unspecified; Translations: [Polyneuropathy, unspecified] Chronic Other nervous system disorders (5 sources) Skin sensation disturbance; Translations: [Paresthesia of skin] Episodic Other nervous system disorders (20 sources) Unsteady when walking; Translations: [Unsteadiness on feet] Episodic Other nervous system disorders (20 sources) Paresthesia; Translations: [Paresthesia of skin] Episodic Other nervous system disorders (4 sources) Paresthesia of skin Episodic Other nervous system disorders (19 sources) Abnormal gait; Translations: [Unsteadiness on feet] Episodic Other nervous system disorders (1 source) Unsteadiness on feet; Translations: [Unsteadiness on feet] Episodic Other non-traumatic joint disorders (20 sources) Arthralgia of the pelvic region and thigh; Translations: [Pain in right hip] Episodic Other non-traumatic joint disorders (20 sources) Arthralgia of the lower leg; Translations: [Pain in right knee] Episodic Other non-traumatic joint disorders (19 sources) Pain in right hip joint; Translations: [Pain in right hip] Episodic Other non-traumatic joint disorders (1 source) Pain in right hip; Translations: [Pain in right hip] Episodic Other non-traumatic joint disorders (1 source) Pain in right knee; Translations: [Chronic pain of right knee] 01-31-2024 Episodic Other nutritional; endocrine; and metabolic disorders (20 sources) Simple obesity ; Translations: [Exogenous obesity] 01-31-2024 Chronic Other nutritional; endocrine; and metabolic disorders (20 sources) Obese class I; Translations: [Obesity, unspecified] Chronic Other nutritional; endocrine; and metabolic disorders (2 sources) Obesity, unspecified Chronic Other nutritional; endocrine; and metabolic disorders (20 sources) Obesity; Translations: [Obesity, unspecified] Chronic Other nutritional; endocrine; and metabolic disorders (20 sources) Obesity caused by energy imbalance; Translations: [Other obesity due to excess calories] Chronic Other nutritional; endocrine; and metabolic disorders (20 sources) Body mass index 30+ - obesity; Translations: [Body mass index (BMI) 32.0-32.9, adult] Chronic Other nutritional; endocrine; and metabolic disorders (4 sources) Other obesity due to excess calories Chronic Other nutritional; endocrine; and metabolic disorders (3 sources) Body mass index (BMI) 32.0-32.9, adult Chronic Other nutritional; endocrine; and metabolic disorders (1 source) Body mass index (BMI) 33.0-33.9, adult Chronic Other screening for suspected conditions (not mental disorders or infectious disease) (14 sources) Encounter for screening mammogram for malignant neoplasm of breast; Translations: [Cardiovascular stress test abnormal] Onset: 11-11-2018 Episodic Other skin disorders (1 source) Localized swelling, mass and lump, neck Episodic Other upper respiratory disease (20 sources) Seasonal allergic rhinitis; Translations: [Other seasonal allergic rhinitis] Onset: 04-02-2019 Chronic Other upper respiratory disease (20 sources) Allergic rhinitis; Translations: [Allergic rhinitis, unspecified] Onset: 03-09-2015 Chronic Other upper respiratory disease (20 sources) Vasomotor rhinitis; Translations: [Vasomotor rhinitis] Onset: 12-09-2018 Chronic Other upper respiratory infections (20 sources) Acute sinusitis; Translations: [Acute sinusitis, unspecified] Onset: 09-02-2014 Episodic Otitis media and related conditions (20 sources) Otitis media; Translations: [Otitis media, unspecified, unspecified ear] Episodic Pneumonia (except that caused by tuberculosis or sexually transmitted disease) (1 source) Pneumonia, unspecified organism; Translations: [PNEUMONIA UNSPECIFIED ORGANISM] Onset: 02-14-2023 Episodic Pulmonary heart disease (20 sources) Pulmonary hypertension; Translations: [Pulmonary hypertension, unspecified] Chronic Residual codes; unclassified (12 sources) Asymptomatic menopausal state; Translations: [Menopause] Episodic Residual codes; unclassified (20 sources) Menopause present; Translations: [Asymptomatic menopausal state] 01-31-2024 Episodic Residual codes; unclassified (1 source) Family history of malignant neoplasm of bladder; Translations: [FAM HX MALIGNANT NEOPLASM BLADDER] Onset: 01-15-2023 Episodic Residual codes; unclassified (1 source) Family history of malignant neoplasm of digestive organs; Translations: [FAM HX MALIG NEOPLASM DIGESTIV ORGN] Onset: 01-15-2023 Episodic Residual codes; unclassified (1 source) Family history of other malignant neoplasms of lymphoid, hematopoietic and related tissues; Translations: [FAM HX OTH MAL TANJA LYMPH HEMATPOETC] Onset: 01-15-2023 Episodic Residual codes; unclassified (1 source) Family history of malignant neoplasm of trachea, bronchus and lung; Translations: [FAM HX MALIG NEOPLSM TRACH BRON LNG] Onset: 01-15-2023 Episodic Residual codes; unclassified (20 sources) Postmenopausal state; Translations: [Asymptomatic menopausal state] Episodic Residual codes; unclassified (19 sources) Symptom: generalized; Translations: [Other general symptoms and signs] Episodic Residual codes; unclassified (1 source) Other general symptoms and signs; Translations: [Other general symptoms and signs] Episodic Respiratory failure; insufficiency; arrest (adult) (1 source) Acute respiratory failure with hypoxia; Translations: [ACUTE RESPIRATORY FAIL W/HYPOXIA] Onset: 02-14-2023 Episodic Screening and history of mental health and substance abuse codes (6 sources) Ex-smoker; Translations: [Personal history of tobacco use] Onset: 10-17-2023 Episodic Comment on above: 1997; Skin and subcutaneous tissue infections (2 sources) Cellulitis of right finger Episodic Spondylosis; intervertebral disc disorders; other back problems (20 sources) Cervical spondylosis without myelopathy; Translations: [Other spondylosis with radiculopathy, cervical region] Onset: 10-19-2015 01-31-2024 Chronic Sprains and strains (20 sources) Neck sprain; Translations: [Strain of muscle, fascia and tendon at neck level, initial encounter] Onset: 04-05-2016 Resolved: 01-21-2021 Episodic Substance-related disorders (20 sources) Tobacco user; Translations: [Nicotine dependence, cigarettes, in remission] Chronic Thyroid disorders (20 sources) Goiter; 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 Unclassified (3 sources) CONTACT W/AND (SUSP) EXPOS COVID-19; Translations: [CONTACT W/AND (SUSP) EXPOS COVID-19] Onset: 05-08-2022 Unclassified (1 source) Encounter for preprocedural laboratory examination; Translations: [Encounter for preprocedural laboratory examination] Onset: 03-08-2023 Viral infection (20 sources) COVID-19; Translations: [Disease caused by 2019-nCoV] Onset: 05-08-2022 Past or Other Problems Problem Classification Problem Date Documented Da te Episodic/Chronic Cardiac dysrhythmias (20 sources) Palpitations; Translations: [Bradycardia, unspecified] Onset: 08-17-2015 Episodic Esophageal disorders (20 sources) Esophageal disorders; Translations: [Gastroesophageal reflux disease with esophagitis without hemorrhage] Headache; including migraine (20 sources) Headache; Translations: [Headache, unspecified] Onset: 10-19-2015 Episodic Mycoses (20 sources) Candidiasis of mouth; Translations: [Candidal stomatitis] Onset: 09-08-2013 Episodic Nonmalignant breast conditions (20 sources) Pain of breast; Translations: [Mastodynia] Resolved: 03-24-2020 Episodic Nonspecific chest pain (20 sources) Precordial pain; Translations: [Chest pain] Onset: 02-16-2015 Episodic Other connective tissue disease (20 sources) Shoulder lesion, unspecified, left shoulder; Translations: [Shoulder lesion, unspecified, left shoulder] Onset: 02-08-2016 Episodic Other lower respiratory disease (20 sources) Cough; Translations: [Cough, unspecified] Onset: 11-25-2014 Episodic Other nervous system disorders (19 sources) Tremor; Translations: [Tremor, unspecified] Onset: 12-17-2013 Episodic Other nervous system disorders (19 sources) Atypical facial pain; Translations: [Atypical facial pain] Onset: 12-17-2013 Episodic Other nervous system disorders (1 source) Tremor, unspecified; Translations: [Tremor, unspecified] Onset: 12-17-2013 Episodic Other nervous system disorders (1 source) Atypical facial pain; Translations: [Atypical facial pain] Onset: 12-17-2013 Episodic Other non-traumatic joint disorders (19 sources) Shoulder joint pain; Translations: [Pain in left shoulder] Onset: 02-08-2016 Episodic Other non-traumatic joint disorders (1 source) Pain in left shoulder; Translations: [Pain in left shoulder] Onset: 02-08-2016 Episodic Residual codes; unclassified (20 sources) Insomnia; Translations: [Insomnia, unspecified] Onset: 06-23-2015 Episodic Spondylosis; intervertebral disc disorders; other back problems (20 sources) Neck pain; Translations: [Cervicalgia] Onset: 10-19-2015 Episodic Superficial injury; contusion (20 sources) Contusion of ankle; Translations: [Contusion of unspecified ankle, initial encounter] Onset: 10-25-2015 Episodic Unclassified (3 sources) Patient status finding; Translations: [Patient new to provider] Unclassified (1 source) CONTACT W/AND (SUSP) EXPOS COVID-19; Translations: [CONTACT W/AND (SUSP) EXPOS COVID-19] Onset: 05-04-2022 Unclassified (20 sources) Acute candidiasis of vulva and vagina; Translations: [Acute candidiasis of vulva and vagina] Resolved: 03-24-2020 Unclassified (1 source) Subacute cough R05.2 Unclassified (1 source) Post COVID-19 condition, 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 Unclassified (1 source) Chronic cough R05.3 Urinary tract infections (20 sources) Urethral syndrome; 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, unspecified] Resolved: 07-18-2021 Episodic Results Test Name Value Interpretation Reference Range Facility Basic metabolic 2000 panelon 11-05-2023 Anion gap [Moles/Vol] 9 mmol/L Normal 9-18 [facility] Comment on above: Order Comment: Speci men Type: BLOOD SPECIMEN Ordering Facility: [facility] Address: [address] [place] [address] Performed By: #### 5 7021-8 #### [facility] CLIA [id number] [address] [place] [address] Calcium [Mass/Vol] 9.6 mg/dL Normal 8.5-10.2 [facility] Comment on above: Order Comment: Speci men Type: BLOOD SPECIMEN Ordering Facility: [facility] Address: [address] [place] [address] Performed By: #### 5 7021-8 #### [facility] CLIA [id number] [address] [place] [address] Chloride [Moles/Vol] 103 mmol/L Normal 97-105 [facility] Comment on above: Order Comment: Speci men Type: BLOOD SPECIMEN Ordering Facility: [facility] Address: [address] [place] [address] Performed By: #### 5 7021-8 #### [facility] CLIA [id number] [address] [place] [address]482 CO2 [Moles/Vol] 29 mmol/L Normal 22-30 [facility] Comment on above: Order Comment: Speci men Type: BLOOD SPECIMEN Ordering Facility: [facility] Address: [address] [place] [id number] Performed By: #### 5 7021-8 #### [facility] CLIA [id number] [address] [place] [address] Creatinine [Mass/Vol] 1.48 mg/dL High 0.58-0.96 [facility] Comment on above: Order Comment: Speci men Type: BLOOD SPECIMEN Ordering Facility: [facility] Address: [address] [address] Performed By: #### 5 7021-8 #### [facility] CLIA [id number] [address] [place] [address] Creatinine and Glomerular filtration rate.predicted panel (S/P/Bld) 35 mL/min/1.73m??? Low >=60 [facility] Comment on above: Order Comment: Speci men Type: BLOOD SPECIMEN Ordering Facility: [facility] Address: [address] [address] Result Comment: Shoshana mated Glomerular Filtration Rate (eGFR) is calculated using the 2020 CKD-EPI creatinine equation. This equation utilizes serum creatinine, sex, and age as parameters. The creatinine assay has traceable calibration to isotope dilution-mass spectrometry. Refer to KDIGO guidelines for clinical interpretation. In patients with unstable renal function, e.g. those with acute kidney injury, the eGFR may not accurately reflect actual GFR. Performed By: #### 5 7021-8 #### [facility] CLIA [id number] [address] [place] [address] Glucose [Mass/Vol] 138 mg/dL High 74-99 [facility] Comment on above: Order Comment: Speci carey Type: BLOOD SPECIMEN Ordering Facility: [facility] Address: [address] [address] Result Comment: The [place] [employer] (ADA) provides guidance for cutoff values for fasting glucose and random glucose. The ADA defines fasting as no caloric intake for at least 8 hours. Fasting plasma glucose results between 100 to 125 mg/dL indicate increased risk for diabetes (prediabetes). Fasting plasma glucose results greater than or equal to 126 mg/dL meet the criteria for diagnosis of diabetes. In the absence of unequivocal hyperglycemia, results should be confirmed by repeat testing. In a patient with classic symptoms of hyperglycemia or hyperglycemic crisis, random plasma glucose results greater than or equal to 200 mg/dL meet the criteria for diagnosis of diabetes. Reference: Standards of Medical Care in Diabetes 2016, [place] [employer]. Diabetes Care. 2016.39(Suppl 1). Performed By: #### 5 7021-8 #### [facility] CLIA [id number] [address] [place] [address] Potassium [Moles/Vol] 5.0 mmol/L Normal 3.7-5.1 [facility] Comment on above: Order Comment: Speci men Type: BLOOD SPECIMEN Ordering Facility: [facility] Address: [address] [place] [address] Performed By: #### 5 7021-8 #### [facility] CLIA [id number] [address] [place] [address] Sodium [Moles/Vol] 141 mmol/L Normal 136-144 [facility] Comment on above: Order Comment: Speci men Type: BLOOD SPECIMEN Ordering Facility: [facility] Address: [address] [place] [address] Performed By: #### 5 7021-8 #### [facility] CLIA [id number] [address] [place] [address] Urea nitrogen [Mass/Vol] 25 mg/dL High 7-21 [facility] Comment on above: Order Comment: Speci men Type: BLOOD SPECIMEN Ordering Facility: [facility] Address: [address] [place] [address] Performed By: #### 5 7021-8 #### [facility] CLIA [id number] [address] [place] [address]85[address] CBC W Auto Differential pane l (Bld)on 11-05-2023 Basophils (Bld) [#/Vol] 0.06 10*3/uL Normal <0.11 [facility] Comment on above: Order Comment: Speci men Type: BLOOD SPECIMEN Ordering Facility: [facility] Address: [address] [place] [address] Performed By: #### K LFRS #### [facility] CLIA [id number] [address] [place] [address] [place] Basophils/100 WBC (Bld) 0.9 % Normal [facility] Comment on above: Order Comment: Speci men Type: BLOOD SPECIMEN Ordering Facility: [facility] Address: [address] [place] [address] Performed By: #### K LFRS #### [facility] CLIA [id number] [address] [place] [address] [place] Differential cell count method Nom (Bld) Auto Normal [facility] Comment on above: Order Comment: Speci men Type: BLOOD SPECIMEN Ordering Facility: [facility] Address: [address] [place] [address] Performed By: #### K LFRS #### [facility] CLIA [id number] [address] [place] [address] [place] Eosinophils (Bld) [#/Vol] 0.10 10*3/uL Normal <0.46 [facility] Comment on above: Order Comment: Speci men Type: BLOOD SPECIMEN Ordering Facility: [facility] Address: [address] [place] [address] Performed By: #### K LFRS #### [facility] CLIA [id number] [address] [place] [address] [place] Eosinophils/100 WBC (Bld) 1.4 % Normal [facility] Comment on above: Order Comment: Speci men Type: BLOOD SPECIMEN Ordering Facility: [facility] Address: [address] [place] [address] Performed By: #### K LFRS #### [facility] CLIA [id number] [address] [place] [address] [place] Erythrocyte distribution width (RBC) [Ratio] 14.1 % Normal 11.5-15.0 [facility] Comment on above: Order Comment: Speci men Type: BLOOD SPECIMEN Ordering Facility: [facility] Address: [address] [place] [address] Performed By: #### K LFRS #### [facility] CLIA [id number] [address] [place] [address] [place] Hematocrit (Bld) [Volume fraction] 31.7 % Low 36.0-46.0 [facility] Comment on above: Order Comment: Speci men Type: BLOOD SPECIMEN Ordering Facility: [facility] Address: [address] [place] [address] Performed By: #### K LFRS #### [facility] CLIA [id number] [address] [place] [address] [place] Hemoglobin (Bld) [Mass/Vol] 10.4 g/dL Low 11.5-15.5 [facility] Comment on above: Order Comment: Speci men Type: BLOOD SPECIMEN Ordering Facility: [facility] Address: [address] [place] [address] Performed By: #### K LFRS #### [facility] CLIA [id number] [address] [place] [address] [place] Immature granulocytes (Bld) [#/Vol] 0.04 10*3/uL Normal <0.10 [facility] Comment on above: Order Comment: Speci men Type: BLOOD SPECIMEN Ordering Facility: [facility] Address: [address] [place] [address] Performed By: #### K LFRS #### [facility] CLIA [id number] [address] [place] [address] [place] Immature granulocytes/100 WBC (Bld) 0.6 % Normal [facility] Comment on above: Order Comment: Speci men Type: BLOOD SPECIMEN Ordering Facility: [facility] Address: [address] [place] [address] Performed By: #### K LFRS #### [facility] CLIA [id number] [address] [place] [address] [place] Lymphocytes (Bld) [#/Vol] 0.89 10*3/uL Low 1.00-4.00 [facility] Comment on above: Order Comment: Speci men Type: BLOOD SPECIMEN Ordering Facility: [facility] Address: [address] [place] [address] Performed By: #### K LFRS #### [facility] CLIA [id number] [address] [place] [address] [place] Lymphocytes/100 WBC (Bld) 12.8 % Normal [facility] Comment on above: Order Comment: Speci men Type: BLOOD SPECIMEN Ordering Facility: [facility] Address: [address] [place] [address] Performed By: #### K LFRS #### [facility] CLIA [id number] [address] [place] [address] [place] MCH (RBC) [Entitic mass] 29.3 pg Normal 26.0-34.0 [facility] Comment on above: Order Comment: Speci men Type: BLOOD SPECIMEN Ordering Facility: [facility] Address: [address] [place] [address] Performed By: #### K LFRS #### [facility] CLIA [id number] [address] [place] [address] [place] MCHC (RBC) [Mass/Vol] 32.8 g/dL Normal 30.5-36.0 [facility] Comment on above: Order Comment: Speci men Type: BLOOD SPECIMEN Ordering Facility: [facility] Address: [address] [place] [address] Performed By: #### K LFRS #### [facility] CLIA [id number] [address] [place] [address] [place] MCV (RBC) [Entitic vol] 89.3 fL Normal 80.0-100.0 [facility] Comment on above: Order Comment: Speci men Type: BLOOD SPECIMEN Ordering Facility: [facility] Address: [address] [place] [address] Performed By: #### K LFRS #### [facility] CLIA [id number] [address] [place] [address] [place] Monocytes (Bld) [#/Vol] 0.69 10*3/uL Normal <0.87 [facility] Comment on above: Order Comment: Speci men Type: BLOOD SPECIMEN Ordering Facility: [facility] Address: [address] [place] [address] Performed By: #### K LFRS #### [facility] CLIA [id number] [address] [place] [address] [place] Monocytes/100 WBC (Bld) 9.9 % Normal [facility] Comment on above: Order Comment: Speci men Type: BLOOD SPECIMEN Ordering Facility: [facility] Address: [address] [place] [address] Performed By: #### K LFRS #### [facility] CLIA [id number] [address] [place] [address] [place] Neutrophils (Bld) [#/Vol] 5.16 10*3/uL Normal 1.45-7.50 [facility] Comment on above: Order Comment: Speci men Type: BLOOD SPECIMEN Ordering Facility: [facility] Address: [address] [place] [address] Performed By: #### K LFRS #### [facility] CLIA [id number] [address] [place] [address] [place] Neutrophils/100 WBC (Bld) 74.4 % Normal [facility] Comment on above: Order Comment: Speci men Type: BLOOD SPECIMEN Ordering Facility: [facility] Address: [address] [place] [address] Performed By: #### K LFRS #### [facility] CLIA [id number] [address] [place] [address] [place] Nucleated RBC (Bld) [#/Vol] 10*3/uL Normal <0.01 [facility] Comment on above: Order Comment: Speci men Type: BLOOD SPECIMEN Ordering Facility: [facility] Address: [address] [place] [address] Performed By: #### K LFRS #### [facility] CLIA [id number] [address] [place] [address] [place] Nucleated RBC/100 WBC (Bld) [Ratio] 0.0 /100 WBC Normal [facility] Comment on above: Order Comment: Speci men Type: BLOOD SPECIMEN Ordering Facility: [facility] Address: [address] [place] [address] Performed By: #### K LFRS #### [facility] CLIA [id number] [address] [place] [address] [place] Platelet mean volume (Bld) [Entitic vol] 9.9 fL Normal 9.0-12.7 [facility] Comment on above: Order Comment: Speci men Type: BLOOD SPECIMEN Ordering Facility: [facility] Address: [address] [place] [address] Performed By: #### K LFRS #### [facility] CLIA [id number] [address] [place] [address] [place] Platelets (Bld) [#/Vol] 262 10*3/uL Normal 150-400 [facility] Comment on above: Order Comment: Speci men Type: BLOOD SPECIMEN Ordering Facility: [facility] Address: [address] [place] [address] Performed By: #### K LFRS #### [facility] CLIA [id number] [address] [place] [address] [place] RBC (Bld) [#/Vol] 3.55 10*6/uL Low 3.90-5.20 [facility] Comment on above: Order Comment: Speci men Type: BLOOD SPECIMEN Ordering Facility: [facility] Address: [place] [address] Performed By: #### K LFRS #### [facility] CLIA [id number] [address] [place] [address] [place] WBC (Bld) [#/Vol] 6.94 10*3/uL Normal 3.70-11.00 [facility] Comment on above: Order Comment: Speci men Type: BLOOD SPECIMEN Ordering Facility: [facility] Address: [place] [address] Performed By: #### K LFRS #### [facility] CLIA [id number] [address] [place] CNOVSPon 11-05-2023 CNOVSP Visit (SP) Office ([place]) ----- LASHAUN JOAQUIN ([id number]) 1940 F Date Time Provider Department 11/05/23 1:30 PM PAOLO CASILLAS During your visit today, we recorded the following information about you: Temperature Pulse Respiration Blood pressure 97.5 degrees 57/minute 16/minute 111/40 Weight Height 87.6 kg 1.664 m Paolo Casillas APRN.SENIOR NET ARCHITECT 11/07/2023 12:22 PM Signed PATIENT NAME: Lashaun Joaquin DATE: 11/05/2023 PRIMARY CARE PHYSICIAN: Dr. Nathan Hathaway OTHER PHYSICIANS: Dr. Reyes Portions of this encounter note have been copied from Dr. Luis Mckenzie's note from 06/04/2023 and has been updated where appropriate, and reflect my current medical decision making from today. CC: This is an 83 year old female with chronic neuropathy and arthritis, initially referred for evaluation of an abnormal SPEP, seen for scheduled follow-up. INTERIM HISTORY: Lashaun Joaquin returns for scheduled follow-up. Since her last visit there has been no significant medical changes. She denies cough, shortness of breath and other pulmonary complaints. She denies chest pain. No leg swelling. She denies fevers, chills, night sweats and signs/symptoms of infection. No bleeding or abnormal bruising. She denies dizziness and lightheadedness. Overall, she is doing well today and offers no new complaints. MEDICATIONS: Current Outpatient Medications Medication Sig carvedilol (COREG) 12.5 mg tablet TAKE 1 TABLET BY MOUTH TWICE A DAY WITH FOOD/MEAL clopidogrel (PLAVIX) 75 mg tablet TAKE 8 TABLETS BY MOUTH ON DAY ONE THEN TAKE 1 TABLET BY MOUTH DAILY furosemide (LASIX) 20 mg tablet potassium chloride (K-TAB) 10 mEq tablet irbesartan (AVAPRO) 150 mg tablet rOPINIRole (REQUIP) 0.[address] (PROTONIX) 40 mg tablet MULTI-VITAMIN ORAL Take by mouth. calcium carbonate (CALCIUM 600 ORAL) Take by mouth. aspirin 81 mg cap Take by mouth. pravastatin sodium (PRAVASTATIN ORAL) Take 40 mg by mouth every evening. losartan (COZAAR) 100 mg tablet Take 100 mg by mouth once daily. temazepam (RESTORIL) 15 mg Take by mouth at bedtime as needed. ALPRAZolam (XANAX) 0.25 mg tablet Take 0.25 mg by mouth three times daily as needed. GABAPENTIN ORAL Take 100 mg by mouth twice daily. No current facility-administered medications for this visit. ALLERGIES: ALLERGIES Allergen Reactions Allopurinol Unknown Amlodipine Unknown Bactrim [Sulfametho* Unknown Cheratussin Ac [Cod* Unknown Doxycycline Hyclate Unknown Duloxetine Unknown Iodine And Iodide C* Unknown 08/04/22 confirmed with patient that she is not allergic to CT contrast and has had it previously without issues or premeds. Levaquin [Levofloxa* Unknown Penicillins Unknown Pseudoephedrine Unknown Sulfa (Sulfonamide * Rash, Unknown Tetanus And Diphthe* Unknown Tetracyclines Unknown Trimethoprim Unknown Zofran [Ondansetron] Unknown PAST MEDICAL HISTORY: PAST MEDICAL HISTORY Diagnosis Date Cervical spondylosis Chronic venous insufficiency Dysuria-frequency syndrome Essential hypertension Estrogen deficiency OMAR (generalized anxiety disorder) GERD (gastroesophageal reflux disease) Hyperlipidemia type II Irritable bowel syndrome with diarrhea Lipoma of neck Malaise and fatigue Paresthesias Peripheral polyneuropathy Primary insomnia Ptosis of right eyelid Trochanteric bursitis of right hip Unsteady gait when walking PAST SURGICAL HISTORY: PAST SURGICAL HISTORY Procedure Laterality Date TOTAL ABD HYSTERECTOMY+BLAD REPR FAMILY HISTORY: FAMILY HISTORY Problem Relation Age of Onset Lymphoma Mother Cancer Father Leukemia Sister Multiple Sclerosis Sister Lung Cancer Brother Colon Cancer Brother Lung Cancer Brother SOCIAL HISTORY: Social History Tobacco Use Smoking status: Former Types: Cigarettes Smokeless tobacco: Never Vaping Use Vaping Use: Never used Substance Use Topics Alcohol use: Not Currently Drug use: Never REVIEW OF SYSTEMS: GENERAL: No weight loss, malaise or fevers. HEENT: Negative for frequent or significant headaches, No changes in hearing or vision, no nose bleeds or other nasal problems RESPIRATORY: Negative for cough, wheezing or shortness of breath. CARDIOVASCULAR: Negative for chest pain, leg swelling or palpitations. GI: Negative for abdominal discomfort, blood in stools or black stools or change in bowel habits : No history of dysuria, frequency or incontinence MUSCULOSKELETAL: Negative for: joint pain or swelling, back pain and muscle pain SKIN: Negative for lesions, rash, and itching. HEMATOLOGY/LYMPHOLOGY: Negative for prolonged bleeding, bruising easily or swollen nodes. NEURO: No history of headaches, syncope, paralysis, seizures or tremors PHYSICAL EXAM: BP (!) 111/40 Pulse (!) 57 Temp 36.4 ?C (97.5 ?F) (Temporal) Resp 16 Ht 166.4 c (more content not included)... Normal [facility] IMMUNOFIXATION SCREEN, SERUM on 11-05-2023 INTERPRETATION (MPA) Poorly defined brenda on of restricted mobility in IgM and kappa lanes. Pattern is less well defined or fainter than typically seen in monoclonal gammopathy. This could represent either an atypical presentation of polyclonal immunoglobulins or the presence of a low level IgM kappa monoclonal gammopathy. If clinically indicated, urine monoclonal protein analysis and serum free light chain measurements recommended to evaluate further for monoclonal gammopathy. Clinical correlation is necessary. Normal [facility] Comment on above: Order Comment: Speci men Type: BLOOD SPECIMEN Ordering Facility: [facility] Address: [address] [place] [id number] Performed By: #### 5 7021-8 #### [facility] CLIA [id number] [address] [place], [place] [id number] MPA RESULT A poorly defined reg ion of restricted mobility is present that may represent an M protein. Abnormal No M protein is identified. [facility] Comment on above: Order Comment: Speci men Type: BLOOD SPECIMEN Ordering Facility: [facility] Address: [address] [place] [address] Performed By: #### 5 7021-8 #### [facility] CLIA [id number] [address] [place] [address] STAFF REVIEW (MPA) Reviewed by Milka Bahena MD [facility] Comment on above: Order Comment: Speci men Type: BLOOD SPECIMEN Ordering Facility: [facility] Address: [address] [place] [address] Performed By: #### 5 7021-8 #### [facility] CLIA [id number] [address] [place] [address] IMMUNOGLOBULINS GAMon 2023 IgA [Mass/Vol] 72 mg/dL Normal 70-400 [facility] Comment on above: Order Comment: Speci men Type: BLOOD SPECIMEN Ordering Facility: [facility] Address: [address] [place] [address] Performed By: #### 5 7021-8 #### [facility] CLIA [id number] [address] [place], [place] [address] IgG [Mass/Vol] 525 mg/dL Low 700-1600 [facility] Comment on above: Order Comment: Speci men Type: BLOOD SPECIMEN Ordering Facility: [facility] Address: [address] [place] [address] Performed By: #### 5 7021-8 #### [facility] CLIA [id number] [address] [place], [place] [address] IgM [Mass/Vol] 340 mg/dL High 40-230 [facility] Comment on above: Order Comment: Speci men Type: BLOOD SPECIMEN Ordering Facility: [facility] Address: [address] [place] [address] Performed By: #### 5 7021-8 #### [facility] CLIA [id number] [address] [place] [address] KAPPA/BOWLES,FREE,SERon 2023 Immunoglobulin light chains.kappa.free (S) [Mass/Vol] 106.4 mg/L High 3.3-19.4 [facility] Comment on above: Order Comment: Speci men Type: BLOOD SPECIMEN Ordering Facility: [facility] Address: [address] [place] [address] Result Comment: Rare ly, increased serum free light chains levels may not be detected or accurately quantified due to prozone phenomenon or in high viscosity samples using this immunoturbidimetric assay. Correlation with other laboratory results and clinical findings is recommended. The [place] Free Light Chain was performed using the Binding Site Optilite immunoturbidimetric method. Result obtained with different assay methods or kits cannot be used interchangeably. Performed By: #### K LFRS #### [facility] CLIA [id number] [address] [place] [address] [place] Immunoglobulin light chains.kappa/Immunogl obulin light chains.lambda (S) [Mass ratio] 5.29 High 0.26-1.65 [facility] Comment on above: Order Comment: Preet patino Type: BLOOD SPECIMEN Ordering Facility: [facility] Address: [address] [place] [address] Performed By: #### K LFRS #### [facility] CLIA [id number] [address] [place] [address] [place] Immunoglobulin light chains.lambda.free [Mass/Vol] 20.1 mg/L Normal 5.7-26.3 [facility] Comment on above: Order Comment: Sarathi men Type: BLOOD SPECIMEN Ordering Facility: [facility] Address: [address] [place] [address] Result Comment: Rare ly, increased serum free light chains levels may not be detected or accurately quantified due to prozone phenomenon or in high viscosity samples using this immunoturbidimetric assay. Correlation with other laboratory results and clinical findings is recommended. The [place] Free Light Chain was performed using the Binding Site Optilite immunoturbidimetric method. Result obtained with different assay methods or kits cannot be used interchangeably. Performed By: #### K LFRS #### [facility] [place] [id number] [address] [place] [address] [place] PROTEIN ELECTROPHORESIS SERU M WITH BRANDON (P)on 11-05-2023 Albumin [Mass/Vol] 3.79 g/dL Normal 3.43-5.41 [facility] Comment on above: Order Comment: Speci men Type: BLOOD SPECIMEN Ordering Facility: [facility] Address: [address] [place] [address] Performed By: #### L [id number] #### [facility] [place] [id number] [address] [place] [address] [place] Alpha 1 globulin Elph [Mass/Vol] 0.28 g/dL Normal 0.18-0.43 [facility] Comment on above: Order Comment: Speci men Type: BLOOD SPECIMEN Ordering Facility: [facility] Address: [address] [place] [address] Performed By: #### L [id number] #### [facility] IA [id number] [address] [place] [address] [place] Alpha 2 globulin Elph [Mass/Vol] 0.72 g/dL Normal 0.42-0.98 [facility] Comment on above: Order Comment: Speci men Type: BLOOD SPECIMEN Ordering Facility: [facility] Address: [address] [place] [address] Performed By: #### L [id number] #### [facility] [place] [id number] [address] [place] [address] [place] Beta globulin Elph [Mass/Vol] 0.52 g/dL Low 0.61-1.17 [facility] Comment on above: Order Comment: Speci men Type: BLOOD SPECIMEN Ordering Facility: [facility] Address: [address] [place] [address] Performed By: #### L [id number] #### [facility] CLIA [id number] [facility] [place] [address] [place] COMMENT (SERUM PROT ELECTRO) A reflex test for Monoclonal Protein analysis (immunofixation) has been ordered. Normal [facility] Comment on above: Order Comment: Speci men Type: BLOOD SPECIMEN Ordering Facility: [facility] Address: [address] [place] [address] Performed By: #### L [id number] #### [facility] CLIA [id number] [address] [place] [address] [place] Gamma globulin Elph [Mass/Vol] 0.49 g/dL Low 0.53-1.51 [facility] Comment on above: Order Comment: Speci carey Type: BLOOD SPECIMEN Ordering Facility: [facility] Address: [address] [place] [address] Performed By: #### L [id number] #### [facility] CLIA [id number] [address] [place] [address] [place] INTERPRETATION COMMENT FOR PROTEIN ELECTROPHORESIS Normal [facility] Comment on above: Order Comment: Sarathi carey Type: BLOOD SPECIMEN Ordering Facility: [facility] Address: [address] [place] [address] Result Comment: The atypical region is relatively poorly defined and may represent an unusual presentation of polyclonal immunoglobulins, but cannot rule out the presence of a low level M protein. If clinically indicated, monoclonal protein analysis and serum free light chain analysis are suggested to evaluate further for monoclonal gammopathy. Performed By: #### L [id number] #### [facility] CLIA [id number] [address] [place] [address] [place] M-PROTEIN LOCATION Normal [facility] Comment on above: Order Comment: Speci men Type: BLOOD SPECIMEN Ordering Facility: [facility] Address: [address] [place] [address] Result Comment: Not Applicable. Performed By: #### L [id number] #### [facility] CLIA [id number] [address] [place] [address] [place] Protein Fractions [Interp] An atypical region of restricted mobility is identified on protein electrophoresis. Abnormal No definitive M protein is identified on protein electrophor esis. [facility] Comment on above: Order Comment: Speci men Type: BLOOD SPECIMEN Ordering Facility: [facility] Address: [address] [place] [address] Performed By: #### L [id number] #### [facility] CLIA [id number] [address] [place] [address] [place] Protein.monoclonal Elph [Mass/Vol] 0.00 g/dL Normal <=0.00 [facility] Comment on above: Order Comment: Speci men Type: BLOOD SPECIMEN Ordering Facility: [facility] Address: [address] [place] [address] Performed By: #### L [id number] #### [facility] CLIA [id number] [address] [place] [address] [place] SPE STAFF REVIEW Reviewed by Milka Bahena MD Normal [facility] Comment on above: Order Comment: Speci men Type: BLOOD SPECIMEN Ordering Facility: [facility] Address: [address] [place] [address] Performed By: #### L [id number] #### [facility] CLIA [id number] [address] [place] [address] [place] Prot SerPl-mCncon 11-05-2023 Protein [Mass/Vol] 5.8 g/dL Low 6.3-8.0 [facility] Comment on above: Order Comment: Speci men Type: BLOOD SPECIMEN Ordering Facility: [facility] Address: [address] [place], [place] [id number] Performed By: #### 5 7021-8 #### [facility] CLIA [id number] [address] [place] [address] Kyung 08-31-2023 CNPN Telephone (HEMTSA) ----- EMELIA JOAQUINN ([id number]) 1940 F Date Time Provider Department 08/31/23 LUIS MCKENZIE During your visit today, we recorded the following information about you: Milka Landry Ma 08/31/2023 4:13 PM Signed Labs for next appointment Milka Landry Ma Allergies As of Date: 08/31/2023 Noted Allergy Reaction AMLODIPINE 07/27/2021 16 - Unknown BACTRIM (SULFAMETHOXAZOLE-TRIMETH *07/27/2021 16 - Unknown CHERATUSSIN AC (CODEINE-GUAIFENES*2020 16 - Unknown DOXYCYCLINE HYCLATE 07/27/2021 16 - Unknown DULOXETINE 07/27/2021 16 - Unknown IODINE AND IODIDE CONTAINING PROD*01/19/2021 16 - Unknown Comments: 08/04/22 confirmed with patient that she is not allergic to CT contrast and has had it previously without issues or premeds. LEVAQUIN (LEVOFLOXACIN) 07/27/2021 16 - Unknown PENICILLINS 07/27/2021 16 - Unknown TETANUS AND DIPHTHERIA TOXOIDS 07/27/2021 16 - Unknown TETRACYCLINES 07/27/2021 16 - Unknown ZOFRAN (ONDANSETRON) 07/27/2021 16 - Unknown Date Reviewed: 06/04/2023 Reviewed by: Chrystal Ardon - Fully Assessed Reason for Visit: Lab Orders [1687] Primary Visit Diagnosis:Abnormal SPEP [R77.8] Order(s):CBC + DIFF [SQCBCDIF] Order #: [id number] FUTURE BASIC METABOLIC PNL [SQBMP] Order #: [id number] FUTURE PROT ELECT SERUM WITH BRANDON AND INTERP [SQSEPGRX] Order #: [id number] FUTURE MONOCLONAL PROTEIN, SERUM (BLOOD) [SQSERMPA] Order #: [id number] FUTURE Prescriptions as of 08/31/2023 - carvedilol (COREG) 12.5 mg tablet TAKE 1 TABLET BY MOUTH TWICE A DAY WITH FOOD/MEAL - clopidogrel (PLAVIX) 75 mg tablet TAKE 8 TABLETS BY MOUTH ON DAY ONE THEN TAKE 1 TABLET BY MOUTH DAILY - furosemide (LASIX) 20 mg tablet - potassium chloride (K-TAB) 10 mEq tablet - irbesartan (AVAPRO) 150 mg tablet - rOPINIRole (REQUIP) 0.25 mg tablet - pantoprazole DR (PROTONIX) 40 mg tablet - MULTI-VITAMIN ORAL Take by mouth. - calcium carbonate (CALCIUM 600 ORAL) Take by mouth. - aspirin 81 mg cap Take by mouth. - pravastatin sodium (PRAVASTATIN ORAL) Take 40 mg by mouth every evening. - losartan (COZAAR) 100 mg tablet Take 100 mg by mouth once daily. - temazepam (RESTORIL) 15 mg Take by mouth at bedtime as needed. - ALPRAZolam (XANAX) 0.25 mg tablet Take 0.25 mg by mouth three times daily as needed. - GABAPENTIN ORAL Take 100 mg by mouth twice daily. Problem List As Of Date: 08/31/2023 (None) Encounter Status:Closed by LUIS MCKENZIE on 08/31/23 Normal [facility] UA RANDOM W/MICROSCOPICon Clarity (U) CLEAR CLEAR [employer] Other Color (U) DK YELLOW YELLOW [employer] Other Ketones Ql (U) Negative NEGATIVE mg/dL [employer] Other Leukocyte esterase Test strip Ql (U) Negative NEGATIVE [employer] Other pH (U) 6.5 [pH] 5.0-9.0 [employer] Other UA RANDOM W/MICROSCOPIC 0-2 #/HPF Abnormal NONE SEEN #/HPF [employer] Other UA RANDOM W/MICROSCOPIC 5-10 #/HPF Abnormal 0-2 #/HPF [employer] Other UA RANDOM W/MICROSCOPIC see note [employer] Other UA RANDOM W/MICROSCOPIC 1.010 1.005-1.025 [employer] Other UA RANDOM W/MICROSCOPIC Negative NEGATIVE [employer] Other UA RANDOM W/MICROSCOPIC LARGE Abnormal NEGATIVE [facility] [employer] Other UA RANDOM W/MICROSCOPIC Positive Abnormal NEGATIVE [facility] [employer] Other UA RANDOM W/MICROSCOPIC 1.0 EU/dL 0.2-1.0 EU/dL [facility] [employer] Other UA RANDOM W/MICROSCOPIC TRACE #/HPF Abnormal NONE SEEN #/HPF [facility] [employer] Other UA RANDOM W/MICROSCOPIC NONE SEEN NONE SEEN [facility] [employer] Other UA RANDOM W/MICROSCOPIC RARE #/LPF NONE/RARE #/LPF [facility] [employer] Other UA RANDOM W/MICROSCOPIC None Seen #/HPF None Seen #/HPF [employer] Other UA RANDOM W/MICROSCOPIC NONE SEEN #/LPF NONE SEEN #/LPF [employer] Other Urinalysis - DIPSTICKon 06-29 Appearance (U) clear [employer] Other Bilirubin Ql (U) Negative [employer] Other Color (U) light yellow [employer] Other Glucose Ql (U) Negative [employer] Other Hemoglobin Ql (U) +++ [employer] Other Ketones Ql (U) Negative [employer] Other Leukocyte esterase Test strip Ql (U) Negative [employer] Other Nitrite Ql (U) Negative [employer] Other pH (U) 0.2 [pH] [employer] Other Protein Ql (U) trace [employer] Other Specific gravity (U) [Rel density] 1.005 [employer] Other Urobilinogen (U) [Mass/Vol] off chart [facility] [employer] Other Urinalysis - DIPSTICK [facility] [employer] Other CNPNon 06-06-2023 CNPN Telephone (HEMTSA) ----- LASHAUN JOAQUIN ([id number]) 1940 F Date Time Provider Department 06/06/23 JUAN MANZANARES HEMTSA During your visit today, we recorded the following information about you: Juan Manzanares RN 06/06/2023 2:11 PM Signed ----- Message from Luis Mckenzie MD sent at 06/06/2023 12:27 PM EDT ----- Please inform the patient that her iron studies are normal, but sed rate elevated. I suspect her anemia may be from chronic inflammation. Typically I would refer to rheumatology, and they might start steroids. However, I would recommend she hold off on any additional medical treatments until her heart disease is stabilized. I will see her back as scheduled with repeat labs. We can further discuss then. Juan Manzanares RN 06/06/2023 2:12 PM Signed Pt aware of BR message and agrees to POC. She states she feels good and will see us back in August. Juan Manzanarse RN Allergies As of Date: 06/06/2023 Noted Allergy Reaction AMLODIPINE 07/27/2021 16 - Unknown BACTRIM (SULFAMETHOXAZOLE-TRIMETH *07/27/2021 16 - Unknown CHERATUSSIN AC (CODEINE-GUAIFENES*2020 16 - Unknown DOXYCYCLINE HYCLATE 07/27/2021 16 - Unknown DULOXETINE 07/27/2021 16 - Unknown IODINE AND IODIDE CONTAINING PROD*01/19/2021 16 - Unknown Comments: 10/7/22 confirmed with patient that she is not allergic to CT contrast and has had it previously without issues or premeds. LEVAQUIN (LEVOFLOXACIN) 07/27/2021 16 - Unknown PENICILLINS 07/27/2021 16 - Unknown TETANUS AND DIPHTHERIA TOXOIDS 07/27/2021 16 - Unknown TETRACYCLINES 07/27/2021 16 - Unknown ZOFRAN (ONDANSETRON) 07/27/2021 16 - Unknown Date Reviewed: 06/04/2023 Reviewed by: Chrystal Ardon - Fully Assessed Reason for Visit: Results [95] Prescriptions as of 06/06/2023 - carvedilol (COREG) 12.5 mg tablet TAKE 1 TABLET BY MOUTH TWICE A DAY WITH FOOD/MEAL - clopidogrel (PLAVIX) 75 mg tablet TAKE 8 TABLETS BY MOUTH ON DAY ONE THEN TAKE 1 TABLET BY MOUTH DAILY - furosemide (LASIX) 20 mg tablet - potassium chloride (K-TAB) 10 mEq tablet - irbesartan (AVAPRO) 150 mg tablet - rOPINIRole (REQUIP) 0.25 mg tablet - pantoprazole DR (PROTONIX) 40 mg tablet - MULTI-VITAMIN ORAL Take by mouth. - calcium carbonate (CALCIUM 600 ORAL) Take by mouth. - aspirin 81 mg cap Take by mouth. - pravastatin sodium (PRAVASTATIN ORAL) Take 40 mg by mouth every evening. - losartan (COZAAR) 100 mg tablet Take 100 mg by mouth once daily. - temazepam (RESTORIL) 15 mg Take by mouth at bedtime as needed. - ALPRAZolam (XANAX) 0.25 mg tablet Take 0.25 mg by mouth three times daily as needed. - GABAPENTIN ORAL Take 100 mg by mouth twice daily. Problem List As Of Date: 06/06/2023 (None) Encounter Status:Closed by JUAN MANZANARES on 06/06/23 Normal [facility] ESR Westergren method (Bld) [Velocity]on 06-05-2023 ESR (Bld) [Velocity] 119 mm/h High 0 - 20 mm/hr [facility] FERRITIN BLDon 06-05-2023 Ferritin [Mass/Vol] 160.0 ng/mL 14.7 - 205.1 ng/mL [facility] Iron and Iron binding capaci ty panelon 06-05-2023 Iron [Mass/Vol] 45 ug/dL 41 - 186 ug/dL [facility] Iron binding capacity [Mass/Vol] 252 ug/dL 232 - 386 ug/dL [facility] Iron/TIBC [Molar ratio] 17.9 % 15.0 - 57.0 % [facility] Basic metabolic 2000 panelon 06-04-2023 Anion gap [Moles/Vol] 10 mmol/L Normal 9-18 [facility] Comment on above: Order Comment: Speci men Type: BLOOD SPECIMEN Ordering Facility: [facility] Address: [address] [place] [address] Performed By: #### K LFRS #### [facility] CLIA [id number] [address] [place] [address] [place] Calcium [Mass/Vol] 9.2 mg/dL Normal 8.5-10.2 [facility] Comment on above: Order Comment: Speci men Type: BLOOD SPECIMEN Ordering Facility: [facility] Address: [address] [place] [address] Performed By: #### K LFRS #### [facility] CLIA [id number] [address] [place] [address] [place] Chloride [Moles/Vol] 106 mmol/L High 97-105 [facility] Comment on above: Order Comment: Speci men Type: BLOOD SPECIMEN Ordering Facility: [facility] Address: [address] [place] [address] Performed By: #### K LFRS #### [facility] CLIA [id number] [address] [place] [address] [place] CO2 [Moles/Vol] 27 mmol/L Normal 22-30 [facility] Comment on above: Order Comment: Speci men Type: BLOOD SPECIMEN Ordering Facility: [facility] Address: [address] [place] [address] Performed By: #### K LFRS #### [facility] CLIA [id number] [address] [place] [address] [place] Creatinine [Mass/Vol] 1.09 mg/dL High 0.58-0.96 [facility] Comment on above: Order Comment: Preet patino Type: BLOOD SPECIMEN Ordering Facility: [facility] Address: [address] [place] [address] Performed By: #### K LFRS #### [facility] CLIA [id number] [address] [place] [address] [place] ESTIMATED GLOMERULAR FILTRATION RATE 51 mL/min/1.73m??? Low >=60 [facility] Comment on above: Order Comment: Preet patino Type: BLOOD SPECIMEN Ordering Facility: [facility] Address: [address] [place] [address] Result Comment: Shoshana mated Glomerular Filtration Rate (eGFR) is calculated using the 2020 CKD-EPI creatinine equation. This equation utilizes serum creatinine, sex, and age as parameters. The creatinine assay has traceable calibration to isotope dilution-mass spectrometry. Refer to KDIGO guidelines for clinical interpretation. In patients with unstable renal function, e.g. those with acute kidney injury, the eGFR may not accurately reflect actual GFR. Performed By: #### K LFRS #### [facility] CLIA [id number] [address] [place] [address] [place] Glucose [Mass/Vol] 116 mg/dL High 74-99 [facility] Comment on above: Order Comment: Preet patino Type: BLOOD SPECIMEN Ordering Facility: [facility] Address: [address] [place] [address] Result Comment: The [place] Diabetes [employer] (ADA) provides guidance for cutoff values for fasting glucose and random glucose. The ADA defines fasting as no caloric intake for at least 8 hours. Fasting plasma glucose results between 100 to 125 mg/dL indicate increased risk for diabetes (prediabetes). Fasting plasma glucose results greater than or equal to 126 mg/dL meet the criteria for diagnosis of diabetes. In the absence of unequivocal hyperglycemia, results should be confirmed by repeat testing. In a patient with classic symptoms of hyperglycemia or hyperglycemic crisis, random plasma glucose results greater than or equal to 200 mg/dL meet the criteria for diagnosis of diabetes. Reference: Standards of Medical Care in Diabetes 2016, [place] [employer]. Diabetes Care. 2016.39(Suppl 1). Performed By: #### K LFRS #### [facility] CLIA [id number] [address] [place] [address] [place] Potassium [Moles/Vol] 4.3 mmol/L Normal 3.7-5.1 [facility] Comment on above: Order Comment: Speci men Type: BLOOD SPECIMEN Ordering Facility: [facility] Address: [address] [place] [address] Performed By: #### K LFRS #### [facility] CLIA [id number] [address] [place] [address] [place] Sodium [Moles/Vol] 143 mmol/L Normal 136-144 [facility] Comment on above: Order Comment: Speci men Type: BLOOD SPECIMEN Ordering Facility: [facility] Address: [address] [place] [address] Performed By: #### K LFRS #### [facility] CLIA [id number] [address] [place] [address] [place] Urea nitrogen [Mass/Vol] 19 mg/dL Normal 7-21 [facility] Comment on above: Order Comment: Speci men Type: BLOOD SPECIMEN Ordering Facility: [facility] Address: [address] [place] [address] Performed By: #### K LFRS #### [facility] CLIA [id number] [address] [place] [address] [place] Anion gap [Moles/Vol] 10 mmol/L 9 - 18 mmol/L [facility] Calcium [Mass/Vol] 9.2 mg/dL 8.5 - 10. 2 mg/dL [facility] Chloride [Moles/Vol] 106 mmol/L High 97 - 10 5 mmol/L [facility] CO2 [Moles/Vol] 27 mmol/L 22 - 30 mmol/L [facility] Creatinine [Mass/Vol] 1.09 mg/dL High 0.58 - 0.96 mg/dL [facility] Estimated Glomerular Filtration Rate 51 mL/min/1.73m Low >=60 mL/min/1.73 m [facility] Glucose [Mass/Vol] 116 mg/dL High 74 - 99 mg/dL [facility] Potassium [Moles/Vol] 4.3 mmol/L 3.7 - 5.1 mmol/L [facility] Sodium [Moles/Vol] 143 mmol/L 136 - 144 mmol/L [facility] Urea nitrogen [Mass/Vol] 19 mg/dL 7 - 21 mg/dL [facility] CBC W Auto Differential pane l (Bld)on 06-04-2023 Basophils (Bld) [#/Vol] 0.04 10*3/uL Normal <0.11 [facility] Comment on above: Order Comment: Speci men Type: BLOOD SPECIMEN Ordering Facility: [facility] Address: [address] [place] [address] Performed By: #### 5 7021-8 #### [facility] CLIA [id number] [address] [place] [address] Basophils/100 WBC (Bld) 0.8 % Normal [facility] Comment on above: Order Comment: Speci men Type: BLOOD SPECIMEN Ordering Facility: [facility] Address: [address] [place] [address] Performed By: #### 5 7021-8 #### [facility] CLIA [id number] [address] [place] [address] Differential cell count method Nom (Bld) Auto Normal [facility] Comment on above: Order Comment: Speci men Type: BLOOD SPECIMEN Ordering Facility: [facility] Address: [address] [place] [address] Performed By: #### 5 7021-8 #### [facility] CLIA [id number] [address] [place] [address]85 Eosinophils (Bld) [#/Vol] 0.14 10*3/uL Normal <0.46 [facility] Comment on above: Order Comment: Speci men Type: BLOOD SPECIMEN Ordering Facility: [facility] Address: [address] [place] [address] Performed By: #### 5 7021-8 #### [facility] CLIA [id number] [address] [place] [address] 01231 Eosinophils/100 WBC (Bld) 2.9 % Normal [facility] Comment on above: Order Comment: Speci men Type: BLOOD SPECIMEN Ordering Facility: [facility] Address: [address] [place] [address] Performed By: #### 5 7021-8 #### [facility] CLIA [id number] [address] [place] [address] 48640 Erythrocyte distribution width (RBC) [Ratio] 13.6 % Normal 11.5-15.0 [facility] Comment on above: Order Comment: Speci men Type: BLOOD SPECIMEN Ordering Facility: [facility] Address: [address] [place] [address] Performed By: #### 5 7021-8 #### [facility] CLIA [id number] [address] [place] [address]9864 Hematocrit (Bld) [Volume fraction] 28.8 % Low 36.0-46.0 [facility] Comment on above: Order Comment: Speci men Type: BLOOD SPECIMEN Ordering Facility: [facility] Address: [address] [place] [address] Performed By: #### 5 7021-8 #### [facility] CLIA [id number] [address] [place] [address] Hemoglobin (Bld) [Mass/Vol] 9.2 g/dL Low 11.5-15.5 [facility] Comment on above: Order Comment: Speci men Type: BLOOD SPECIMEN Ordering Facility: [facility] Address: [address] [place] [address] Performed By: #### 5 7021-8 #### [facility] CLIA [id number] [address] [place] [address] Immature granulocytes (Bld) [#/Vol] 10*3/uL Normal <0.10 [facility] Comment on above: Order Comment: Speci men Type: BLOOD SPECIMEN Ordering Facility: [facility] Address: [address] [place] [address] Performed By: #### 5 7021-8 #### [facility] CLIA [id number] [address] [place] [address] 21852 Immature granulocytes/100 WBC (Bld) 0.4 % Normal [facility] Comment on above: Order Comment: Speci men Type: BLOOD SPECIMEN Ordering Facility: [facility] Address: [address] [place] [address] Performed By: #### 5 7021-8 #### [facility] CLIA [id number] [address] [place] [address] 39786 Lymphocytes (Bld) [#/Vol] 0.83 10*3/uL Low 1.00-4.00 [facility] Comment on above: Order Comment: Speci men Type: BLOOD SPECIMEN Ordering Facility: [facility] Address: [address] [place] [address] Performed By: #### 5 7021-8 #### [facility] CLIA [id number] [address] [place] [address] 83446 Lymphocytes/100 WBC (Bld) 17.4 % Normal [facility] Comment on above: Order Comment: Speci men Type: BLOOD SPECIMEN Ordering Facility: [facility] Address: [address] [place] [address] Performed By: #### 5 7021-8 #### [facility] CLIA [id number] [address] [place] [address] 20330 MCH (RBC) [Entitic mass] 29.6 pg Normal 26.0-34.0 [facility] Comment on above: Order Comment: Speci men Type: BLOOD SPECIMEN Ordering Facility: [facility] Address: [address] [place] [address] Performed By: #### 5 7021-8 #### [facility] CLIA [id number] [address] [place] [address] 15419 MCHC (RBC) [Mass/Vol] 31.9 g/dL Normal 30.5-36.0 [facility] Comment on above: Order Comment: Speci men Type: BLOOD SPECIMEN Ordering Facility: [facility] Address: [address] [place] [address] Performed By: #### 5 7021-8 #### [facility] CLIA [id number] [address] [place] [address] 26303 MCV (RBC) [Entitic vol] 92.6 fL Normal 80.0-100.0 [facility] Comment on above: Order Comment: Speci men Type: BLOOD SPECIMEN Ordering Facility: [facility] Address: [address] [place] [address] Performed By: #### 5 7021-8 #### [facility] CLIA [id number] [address] [place] [address] 76311 Monocytes (Bld) [#/Vol] 0.40 10*3/uL Normal <0.87 [facility] Comment on above: Order Comment: Speci men Type: BLOOD SPECIMEN Ordering Facility: [facility] Address: [address] [place] [address] Performed By: #### 5 7021-8 #### [facility] CLIA [id number] [address] [place] [address] 03958 Monocytes/100 WBC (Bld) 8.4 % Normal [facility] Comment on above: Order Comment: Speci men Type: BLOOD SPECIMEN Ordering Facility: [facility] Address: [address] [place] [address] Performed By: #### 5 7021-8 #### [facility] CLIA [id number] [address] [place] [address] 16646 Neutrophils (Bld) [#/Vol] 3.35 10*3/uL Normal 1.45-7.50 [facility] Comment on above: Order Comment: Speci men Type: BLOOD SPECIMEN Ordering Facility: [facility] Address: [address] [place] [address] Performed By: #### 5 7021-8 #### [facility] CLIA [id number] [address] [place] [address] 00255 Neutrophils/100 WBC (Bld) 70.1 % Normal [facility] Comment on above: Order Comment: Speci men Type: BLOOD SPECIMEN Ordering Facility: [facility] Address: [address] [place] [address] Performed By: #### 5 7021-8 #### [facility] CLIA [id number] [address] [place] [address] 07384 Nucleated RBC (Bld) [#/Vol] 10*3/uL Normal <0.01 [facility] Comment on above: Order Comment: Speci men Type: BLOOD SPECIMEN Ordering Facility: [facility] Address: [address] [place] [address] Performed By: #### 5 7021-8 #### [facility] CLIA [id number] [address] [place] [address] 60491 Nucleated RBC/100 WBC (Bld) [Ratio] 0.0 /100 WBC Normal [facility] Comment on above: Order Comment: Speci men Type: BLOOD SPECIMEN Ordering Facility: [facility] Address: [address] [place] [address] Performed By: #### 5 7021-8 #### [facility] CLIA [id number] [address] [place] [address] 75065 Platelet mean volume (Bld) [Entitic vol] 10.2 fL Normal 9.0-12.7 [facility] Comment on above: Order Comment: Speci men Type: BLOOD SPECIMEN Ordering Facility: [facility] Address: [address] [place] [address] Performed By: #### 5 7021-8 #### [facility] CLIA [id number] [address] [place] [address] 21540 Platelets (Bld) [#/Vol] 274 10*3/uL Normal 150-400 [facility] Comment on above: Order Comment: Speci men Type: BLOOD SPECIMEN Ordering Facility: [facility] Address: [address] [place] [address] Performed By: #### 5 7021-8 #### [facility] CLIA [id number] [address] [place] [address] 84414 RBC (Bld) [#/Vol] 3.11 10*6/uL Low 3.90-5.20 [facility] Comment on above: Order Comment: Speci men Type: BLOOD SPECIMEN Ordering Facility: [facility] Address: [address] [place] [address] Performed By: #### 5 7021-8 #### [facility] CLIA [id number] [address] [place] [address] 03758 WBC (Bld) [#/Vol] 4.78 10*3/uL Normal 3.70-11.00 [facility] Comment on above: Order Comment: Speci men Type: BLOOD SPECIMEN Ordering Facility: [facility] Address: [address] [place] [address] Performed By: #### 5 7021-8 #### [facility] CLIA [id number] [address] [place], [place] [address] Basophils (Bld) [#/Vol] 0.04 10*3/uL <0.11 k/uL [facility] Basophils/100 WBC (Bld) 0.8 % [facility] Differential cell count method Nom (Bld) Auto [facility] Eosinophils (Bld) [#/Vol] 0.14 10*3/uL <0.46 k/uL [facility] Eosinophils/100 WBC (Bld) 2.9 % [facility] Erythrocyte distribution width (RBC) [Ratio] 13.6 % 11.5 - 15.0 % [facility] Hematocrit (Bld) [Volume fraction] 28.8 % Low 36.0 - 46.0 % [facility] Hemoglobin (Bld) [Mass/Vol] 9.2 g/dL Low 11.5 - 15.5 g/dL [facility] Immature granulocytes (Bld) [#/Vol] <0.10 k/uL [facility] Immature granulocytes/100 WBC (Bld) 0.4 % [facility] Lymphocytes (Bld) [#/Vol] 0.83 10*3/uL Low 1.00 - 4.00 k/uL [facility] Lymphocytes/100 WBC (Bld) 17.4 % [facility] MCH (RBC) [Entitic mass] 29.6 pg 26.0 - 34.0 pg [facility] MCHC (RBC) [Mass/Vol] 31.9 g/dL 30.5 - 36.0 g/dL [facility] MCV (RBC) [Entitic vol] 92.6 fL 80.0 - 100.0 fL [facility] Monocytes (Bld) [#/Vol] 0.40 10*3/uL <0.87 k/uL [facility] Monocytes/100 WBC (Bld) 8.4 % [facility] Neutrophils (Bld) [#/Vol] 3.35 10*3/uL 1.45 - 7.50 k/uL [facility] Neutrophils/100 WBC (Bld) 70.1 % [facility] Nucleated RBC (Bld) [#/Vol] <0.01 k/uL [facility] Nucleated RBC/100 WBC (Bld) [Ratio] 0.0 /100 WBC [facility] Platelet mean volume (Bld) [Entitic vol] 10.2 fL 9.0 - 12.7 fL [facility] Platelets (Bld) [#/Vol] 274 10*3/uL 150 - 400 k/uL [facility] RBC (Bld) [#/Vol] 3.11 10*6/uL Low 3.90 - 5.2 0 m/uL [facility] WBC (Bld) [#/Vol] 4.78 10*3/uL 3.70 - 11.00 k/uL [facility] CNOVSPon 06-04-2023 CNOVSP Visit (SP) Office ([place]) ----- LASHAUN JOAQUIN ([id number]) 1940 F Date Time Provider Department 06/04/23 2:00 PM LUIS MCKENZIE During your visit today, we recorded the following information about you: Temperature Pulse Respiration Blood pressure 97.7 degrees 56/minute 18/minute 155/58 Weight 92 kg Luis Mckenzie MD 06/06/2023 6:33 AM Signed PATIENT NAME: Lashaun Joaquin DATE: 06/04/2023 PRIMARY CARE PHYSICIAN: Nathan Hathaway DO OTHER PHYSICIANS: Dr. Reyes Portions of this encounter note have been copied from my note from 12/04/2022 and has been updated where appropriate, and reflect my current medical decision making from today. CC: This is an 82 year old female with chronic neuropathy and arthritis, initially referred for evaluation of an abnormal SPEP, seen for scheduled follow-up. INTERIM HISTORY: Since the patient's last visit here she developed severe shortness of breath and was hospitalized at [facility] and treated for suspected pneumonia. Apparently it was later felt she had heart disease, and cardiac catheterization revealed severe coronary artery disease. She subsequently underwent stent placement at [facility]. Apparently her shortness of breath persisted, and she was rehospitalized with CHF. She improved with diuresis. On follow-up today she has severe weakness and continued shortness of breath. No chest pains. No fevers or signs of infection. Her neuropathy is unchanged. No signs of bleeding. MEDICATIONS: Current Outpatient Medications Medication Sig irbesartan (AVAPRO) 150 mg tablet rOPINIRole (REQUIP) 0.[address] (PROTONIX) 40 mg tablet MULTI-VITAMIN ORAL Take by mouth. calcium carbonate (CALCIUM 600 ORAL) Take by mouth. aspirin 81 mg cap Take by mouth. pravastatin sodium (PRAVASTATIN ORAL) Take 40 mg by mouth every evening. losartan (COZAAR) 100 mg tablet Take 100 mg by mouth once daily. temazepam (RESTORIL) 15 mg Take by mouth at bedtime as needed. ALPRAZolam (XANAX) 0.25 mg tablet Take 0.25 mg by mouth three times daily as needed. GABAPENTIN ORAL Take 100 mg by mouth twice daily. No current facility-administered medications for this visit. ALLERGIES: ALLERGIES Allergen Reactions Amlodipine Unknown Bactrim [Sulfametho* Unknown Cheratussin Ac [Cod* Unknown Doxycycline Hyclate Unknown Duloxetine Unknown Iodine And Iodide C* Unknown 08/04/22 confirmed with patient that she is not allergic to CT contrast and has had it previously without issues or premeds. Levaquin [Levofloxa* Unknown Penicillins Unknown Tetanus And Diphthe* Unknown Tetracyclines Unknown Zofran [Ondansetron] Unknown PAST MEDICAL HISTORY: PAST MEDICAL HISTORY Diagnosis Date Cervical spondylosis Chronic venous insufficiency Dysuria-frequency syndrome Essential hypertension Estrogen deficiency OMAR (generalized anxiety disorder) GERD (gastroesophageal reflux disease) Hyperlipidemia type II Irritable bowel syndrome with diarrhea Lipoma of neck Malaise and fatigue Paresthesias Peripheral polyneuropathy Primary insomnia Ptosis of right eyelid Trochanteric bursitis of right hip Unsteady gait when walking PAST SURGICAL HISTORY: PAST SURGICAL HISTORY Procedure Laterality Date TOTAL ABD HYSTERECTOMY+BLAD REPR FAMILY HISTORY: FAMILY HISTORY Problem Relation Age of Onset Lymphoma Mother Cancer Father Leukemia Sister Multiple Sclerosis Sister Lung Cancer Brother Colon Cancer Brother Lung Cancer Brother SOCIAL HISTORY: Social History Tobacco Use Smoking status: Former Types: Cigarettes Smokeless tobacco: Never Vaping Use Vaping Use: Never used Substance Use Topics Drug use: Never COMPLETE REVIEW OF SYSTEMS: CONSTITUTION: Negative for pain, fatigue, weight loss, or appetite loss. EENT: Negative for mouth soreness, antibiotics use, epistaxis, visual problems, neck or facial swelling, fever/chills, bleeding gums, or hearing loss. CV: Negative for edema, calf swelling, palpitations, or chest pain. RESPIRATORY: Negative for cough, SOB, hemoptysis, or wheezing. GI: Negative for nausea/vomiting, heartburn, vomiting blood, dysphasia, diarrhea, blood in stool, constipation, early satiety, PICA, vegetarian, poor nutrition, abdominal fullness, or abdominal pain. NEUROLOGICAL: Negative for numbness/tingling, dizziness, gait disturbance, headache, speech disturbance, tremor, hemiparesis/sensory loss, or change in mental status. MUSCULOSKELETAL: Negative for joint pain, joint swelling, or proximal muscle weakness. SKIN: Negative for hair loss, bruising, nail changes, rash, itching, pallor, or jaundice. ENDO/URO: Negative for hot flashes, cold or heat intolerance, urinary frequency, urinary hesitancy, menorrhagia, or hematuria. PSYCH: Negative for anxiety, depression, or other. PHYSICAL EXAM: B (more content not included)... Normal [facility] ESR Westergren method (Bld) [Velocity]on 06-04-2023 ESR (Bld) [Velocity] 119 mm/h High 0-20 [facility] Comment on above: Order Comment: Speci men Type: BLOOD SPECIMEN Ordering Facility: [facility] Address: [address] [place] [address] Performed By: #### 2 4323-8 #### [facility] CLIA [id number] [address] [place] [address]291 Ferritin SerPl-mCncon 2022 Ferritin [Mass/Vol] 160.0 ng/mL Normal 14.7-205.1 [facility] Comment on above: Order Comment: Speci men Type: BLOOD SPECIMEN Ordering Facility: [facility] Address: [address] [place] [address] Performed By: #### 5 7021-8 #### [facility] CLIA [id number] [address] [place] [address] 91843 Iron and Iron binding capaci ty panelon 06-04-2023 Iron [Mass/Vol] 45 ug/dL Normal 41-186 [facility] Comment on above: Order Comment: Speci men Type: BLOOD SPECIMEN Ordering Facility: [facility] Address: [address] [place] [address] Performed By: #### 2 4323-8 #### [facility] CLIA [id number] [address] [place] [address] 99599 Iron binding capacity [Mass/Vol] 252 ug/dL Normal 232-386 [facility] Comment on above: Order Comment: Speci men Type: BLOOD SPECIMEN Ordering Facility: [facility] Address: [address] [place] [address] Performed By: #### 2 4323-8 #### [facility] CLIA [id number] [address] [place] [address] 07898 Iron/TIBC [Molar ratio] 17.9 % Normal 15.0-57.0 [facility] Comment on above: Order Comment: Speci men Type: BLOOD SPECIMEN Ordering Facility: [facility] Address: [address] [place] [address] Performed By: #### 2 4323-8 #### [facility] CLIA [id number] [address] [place] [address] 19672 RETIC COUNTon 06-04-2023 Reticulocytes (Bld) [#/Vol] 0.20487 10*3/uL 0.018 - 0.100 M/uL [facility] Retics #on 06-04-2023 Reticulocytes (Bld) [#/Vol] 0.32835 10*3/uL Normal 0.018-0.100 [facility] Comment on above: Order Comment: Speci men Type: BLOOD SPECIMEN Ordering Facility: [facility] Address: [address] [place] [address] Performed By: #### 5 7021-8 #### [facility] CLIA [id number] [address] [place] [address] 07334 Reticulocytes (Bld) [#/Vol]o n 06-04-2023 Reticulocytes/100 RBC (Bld) 2.0 % Normal 0.4-2.0 [facility] Comment on above: Order Comment: Speci men Type: BLOOD SPECIMEN Ordering Facility: [facility] Address: [address] [place] [address] Performed By: #### 5 7021-8 #### [facility] CLIA [id number] [address] [place] [address] 45764 Reticulocytes/100 RBC (Bld) 2.0 % 0.4 - 2.0 % [facility] Basic metabolic 2000 panelon 05-28-2023 Anion gap [Moles/Vol] 8 mmol/L Low 9-18 [facility] Comment on above: Order Comment: Speci men Type: BLOOD SPECIMEN Ordering Facility: [facility] Address: [address] [place] [address] Performed By: #### 2 4323-8 #### [facility] CLIA [id number] [address] [place] [address] 82965 Calcium [Mass/Vol] 9.2 mg/dL Normal 8.5-10.2 [facility] Comment on above: Order Comment: Speci men Type: BLOOD SPECIMEN Ordering Facility: [facility] Address: [address] [address] Performed By: #### 2 4323-8 #### [facility] CLIA [id number] [address] [place] [address] 09644 Chloride [Moles/Vol] 104 mmol/L Normal 97-105 [facility] Comment on above: Order Comment: Speci men Type: BLOOD SPECIMEN Ordering Facility: [facility] Address: [address] [address] Performed By: #### 2 4323-8 #### [facility] CLIA [id number] [address] [place] [address] 03876 CO2 [Moles/Vol] 28 mmol/L Normal 22-30 [facility] Comment on above: Order Comment: Speci men Type: BLOOD SPECIMEN Ordering Facility: [facility] Address: [address] [address] Performed By: #### 2 4323-8 #### [facility] CLIA [id number] [address] [place] [address] 44535 Creatinine [Mass/Vol] 1.18 mg/dL High 0.58-0.96 [facility] Comment on above: Order Comment: Speci men Type: BLOOD SPECIMEN Ordering Facility: [facility] Address: [address] [address] Performed By: #### 2 4323-8 #### [facility] CLIA [id number] [address] [place] [address] 62330 ESTIMATED GLOMERULAR FILTRATION RATE 47 mL/min/1.73m??? Low >=60 [facility] Comment on above: Order Comment: Speci men Type: BLOOD SPECIMEN Ordering Facility: [facility] Address: [address] [address] Result Comment: Shoshana mated Glomerular Filtration Rate (eGFR) is calculated using the 2020 CKD-EPI creatinine equation. This equation utilizes serum creatinine, sex, and age as parameters. The creatinine assay has traceable calibration to isotope dilution-mass spectrometry. Refer to KDIGO guidelines for clinical interpretation. In patients with unstable renal function, e.g. those with acute kidney injury, the eGFR may not accurately reflect actual GFR. Performed By: #### 2 4323-8 #### [facility] CLIA [id number] [address] [place] [address] 07032 Glucose [Mass/Vol] 127 mg/dL High 74-99 [facility] Comment on above: Order Comment: Specterrie patino Type: BLOOD SPECIMEN Ordering Facility: [facility] Address: [address] [place], [place] [address] Result Comment: The [place] Diabetes [employer] (ADA) provides guidance for cutoff values for fasting glucose and random glucose. The ADA defines fasting as no caloric intake for at least 8 hours. Fasting plasma glucose results between 100 to 125 mg/dL indicate increased risk for diabetes (prediabetes). Fasting plasma glucose results greater than or equal to 126 mg/dL meet the criteria for diagnosis of diabetes. In the absence of unequivocal hyperglycemia, results should be confirmed by repeat testing. In a patient with classic symptoms of hyperglycemia or hyperglycemic crisis, random plasma glucose results greater than or equal to 200 mg/dL meet the criteria for diagnosis of diabetes. Reference: Standards of Medical Care in Diabetes 2016, [place] [employer]. Diabetes Care. 2016.39(Suppl 1). Performed By: #### 2 4323-8 #### [facility] CLIA [id number] [address] [place] [address] 62102 Potassium [Moles/Vol] 4.4 mmol/L Normal 3.7-5.1 [facility] Comment on above: Order Comment: Preet patino Type: BLOOD SPECIMEN Ordering Facility: [facility] Address: [address] [place] [phone] Performed By: #### 2 4323-8 #### [facility] CLIA [id number] [address] [place] [address] 40183 Sodium [Moles/Vol] 140 mmol/L Normal 136-144 [facility] Comment on above: Order Comment: Speci men Type: BLOOD SPECIMEN Ordering Facility: [facility] Address: [address] [address] Performed By: #### 2 4323-8 #### [facility] CLIA [id number] [address] [place] [address] 51995 Urea nitrogen [Mass/Vol] 23 mg/dL High 7-21 [facility] Comment on above: Order Comment: Speci men Type: BLOOD SPECIMEN Ordering Facility: [facility] Address: [address] [address] Performed By: #### 2 4323-8 #### [facility] CLIA [id number] [address] [place] [address] 21386 CBC W Auto Differential pane l (Bld)on 05-28-2023 Basophils (Bld) [#/Vol] 0.03 10*3/uL Normal <0.11 [facility] Comment on above: Order Comment: Speci men Type: BLOOD SPECIMEN Ordering Facility: [facility] Address: [address] [address] Performed By: #### 5 7021-8 #### [facility] CLIA [id number] [address] [place] [address] 82422 Basophils/100 WBC (Bld) 0.6 % Normal [facility] Comment on above: Order Comment: Speci men Type: BLOOD SPECIMEN Ordering Facility: [facility] Address: [address] [address] Performed By: #### 5 7021-8 #### [facility] CLIA [id number] [address] [place] [address] 78051 Differential cell count method Nom (Bld) Auto Normal [facility] Comment on above: Order Comment: Speci men Type: BLOOD SPECIMEN Ordering Facility: [facility] Address: [address] [address] Performed By: #### 5 7021-8 #### [facility] CLIA [id number] [address] [place] [address] Eosinophils (Bld) [#/Vol] 0.13 10*3/uL Normal <0.46 [facility] Comment on above: Order Comment: Speci men Type: BLOOD SPECIMEN Ordering Facility: [facility] Address: [address] [place] [address] Performed By: #### 5 7021-8 #### [facility] CLIA [id number] [address] [place] [address] 86134 Eosinophils/100 WBC (Bld) 2.5 % Normal [facility] Comment on above: Order Comment: Speci men Type: BLOOD SPECIMEN Ordering Facility: [facility] Address: [address] [place] [address] Performed By: #### 5 7021-8 #### [facility] CLIA [id number] [address] [place] [address] 98933 Erythrocyte distribution width (RBC) [Ratio] 13.7 % Normal 11.5-15.0 [facility] Comment on above: Order Comment: Speci men Type: BLOOD SPECIMEN Ordering Facility: [facility] Address: [address] [place] [address] Performed By: #### 5 7021-8 #### [facility] CLIA [id number] [address] [place] [address] 51789 Hematocrit (Bld) [Volume fraction] 27.9 % Low 36.0-46.0 [facility] Comment on above: Order Comment: Speci men Type: BLOOD SPECIMEN Ordering Facility: [facility] Address: [address] [place] [address] Performed By: #### 5 7021-8 #### [facility] CLIA [id number] [address] [place] [address] 34758 Hemoglobin (Bld) [Mass/Vol] 8.8 g/dL Low 11.5-15.5 [facility] Comment on above: Order Comment: Speci men Type: BLOOD SPECIMEN Ordering Facility: [facility] Address: [address] [address] Performed By: #### 5 7021-8 #### [facility] CLIA [id number] [address] [place] [address] 72314 Immature granulocytes (Bld) [#/Vol] 10*3/uL Normal <0.10 [facility] Comment on above: Order Comment: Speci men Type: BLOOD SPECIMEN Ordering Facility: [facility] Address: [address] [address] Performed By: #### 5 7021-8 #### [facility] CLIA [id number] [address] [place] [address] 56919 Immature granulocytes/100 WBC (Bld) 0.4 % Normal [facility] Comment on above: Order Comment: Speci men Type: BLOOD SPECIMEN Ordering Facility: [facility] Address: [address] [address] Performed By: #### 5 7021-8 #### [facility] CLIA [id number] [address] [place] [address] 41071 Lymphocytes (Bld) [#/Vol] 0.88 10*3/uL Low 1.00-4.00 [facility] Comment on above: Order Comment: Speci men Type: BLOOD SPECIMEN Ordering Facility: [facility] Address: [address] [address] Performed By: #### 5 7021-8 #### [facility] CLIA [id number] [address] [place] [address] 91572 Lymphocytes/100 WBC (Bld) 16.8 % Normal [facility] Comment on above: Order Comment: Speci men Type: BLOOD SPECIMEN Ordering Facility: [facility] Address: [address] [address] Performed By: #### 5 7021-8 #### [facility] CLIA [id number] [address] [place] [address] 54906 MCH (RBC) [Entitic mass] 29.1 pg Normal 26.0-34.0 [facility] Comment on above: Order Comment: Speci men Type: BLOOD SPECIMEN Ordering Facility: [facility] Address: [address] [address] Performed By: #### 5 7021-8 #### [facility] CLIA [id number] [address] [place] [address] 24106 MCHC (RBC) [Mass/Vol] 31.5 g/dL Normal 30.5-36.0 [facility] Comment on above: Order Comment: Speci men Type: BLOOD SPECIMEN Ordering Facility: [facility] Address: [address] [address] Performed By: #### 5 7021-8 #### [facility] CLIA [id number] [address] [place] [address] 84909 MCV (RBC) [Entitic vol] 92.4 fL Normal 80.0-100.0 [facility] Comment on above: Order Comment: Speci men Type: BLOOD SPECIMEN Ordering Facility: [facility] Address: [address] [address] Performed By: #### 5 7021-8 #### [facility] CLIA [id number] [address] [place] [address] 99567 Monocytes (Bld) [#/Vol] 0.43 10*3/uL Normal <0.87 [facility] Comment on above: Order Comment: Speci men Type: BLOOD SPECIMEN Ordering Facility: [facility] Address: [address] [address] Performed By: #### 5 7021-8 #### [facility] CLIA [id number] [address] [place] [address] 47216 Monocytes/100 WBC (Bld) 8.2 % Normal [facility] Comment on above: Order Comment: Speci men Type: BLOOD SPECIMEN Ordering Facility: [facility] Address: [address] [address] Performed By: #### 5 7021-8 #### [facility] CLIA [id number] [address] [place] [address] 05361 Neutrophils (Bld) [#/Vol] 3.76 10*3/uL Normal 1.45-7.50 [facility] Comment on above: Order Comment: Speci men Type: BLOOD SPECIMEN Ordering Facility: [facility] Address: [address] [place] [address] Performed By: #### 5 7021-8 #### [facility] CLIA [id number] [address] [place] [address] 43293 Neutrophils/100 WBC (Bld) 71.5 % Normal [facility] Comment on above: Order Comment: Speci men Type: BLOOD SPECIMEN Ordering Facility: [facility] Address: [address] [place] [address] Performed By: #### 5 7021-8 #### [facility] CLIA [id number] [address] [place] [address] 12686 Nucleated RBC (Bld) [#/Vol] 10*3/uL Normal <0.01 [facility] Comment on above: Order Comment: Speci men Type: BLOOD SPECIMEN Ordering Facility: [facility] Address: [address] [place] [address] Performed By: #### 5 7021-8 #### [facility] CLIA [id number] [address] [place] [address] 14732 Nucleated RBC/100 WBC (Bld) [Ratio] 0.0 /100 WBC Normal [facility] Comment on above: Order Comment: Speci men Type: BLOOD SPECIMEN Ordering Facility: [facility] Address: [address] [place] [address] Performed By: #### 5 7021-8 #### [facility] CLIA [id number] [address] [place] [address] 24816 Platelet mean volume (Bld) [Entitic vol] 10.2 fL Normal 9.0-12.7 [facility] Comment on above: Order Comment: Speci men Type: BLOOD SPECIMEN Ordering Facility: [facility] Address: [address] [address] Performed By: #### 5 7021-8 #### [facility] CLIA [id number] [address] [place] [address] 17051 Platelets (Bld) [#/Vol] 238 10*3/uL Normal 150-400 [facility] Comment on above: Order Comment: Speci men Type: BLOOD SPECIMEN Ordering Facility: [facility] Address: [address] [address] Performed By: #### 5 7021-8 #### [facility] CLIA [id number] [address] [place] [address] 97510 RBC (Bld) [#/Vol] 3.02 10*6/uL Low 3.90-5.20 [facility] Comment on above: Order Comment: Speci men Type: BLOOD SPECIMEN Ordering Facility: [facility] Address: [address] [address] Performed By: #### 5 7021-8 #### [facility] CLIA [id number] [address] [place] [address] 56098 WBC (Bld) [#/Vol] 5.25 10*3/uL Normal 3.70-11.00 [facility] Comment on above: Order Comment: Speci men Type: BLOOD SPECIMEN Ordering Facility: [facility] Address: [address] [place] [address] Performed By: #### 5 7021-8 #### [facility] CLIA [id number] [address] [place] [address] 72775 IMMUNOFIXATION SCREEN, SERUM on 05-28-2023 MPA RESULT No M protein is identified. Normal No M protein is identified. [facility] Comment on above: Order Comment: Speci men Type: BLOOD SPECIMEN Ordering Facility: [facility] Address: [address] [place] [address] Performed By: #### 5 7021-8 #### [facility] CLIA [id number] [address] [place] [address] [place] [address] STAFF REVIEW ([facility]) Reviewed by Milka Bahena MD [facility] Comment on above: Order Comment: Speci men Type: BLOOD SPECIMEN Ordering Facility: [facility] Address: [address] [id number] Performed By: #### 5 7021-8 #### [facility] CLIA [id number] [address] [place], [place] [address] IMMUNOGLOBULINS GAMon 2022 IgA [Mass/Vol] 77 mg/dL Normal 70-400 [facility] Comment on above: Order Comment: Speci men Type: BLOOD SPECIMEN Ordering Facility: [facility] Address: [address] [place] [address] Performed By: #### K LFRS #### [facility] CLIA [id number] [address] [place] [address] [place] MIKE IgG [Mass/Vol] 682 mg/dL Low 700-1600 [facility] Comment on above: Order Comment: Speci men Type: BLOOD SPECIMEN Ordering Facility: [facility] Address: [address] [place] [address] Performed By: #### K LFRS #### [facility] CLIA [id number] [address] [place] [address] [place] IgM [Mass/Vol] 285 mg/dL High 40-230 [facility] Comment on above: Order Comment: Speci men Type: BLOOD SPECIMEN Ordering Facility: [facility] Address: [address] [place] [address] Performed By: #### K LFRS #### [facility] CLIA [id number] [address] [place] [address] [place] KAPPA/BOWLES,FREE,SERon 2022 Immunoglobulin light chains.kappa.free (S) [Mass/Vol] 111.0 mg/L High 3.3-19.4 [facility] Comment on above: Order Comment: Speci men Type: BLOOD SPECIMEN Ordering Facility: [facility] Address: [address] [place] [address] Result Comment: Rare ly, increased serum free light chains levels may not be detected or accurately quantified due to prozone phenomenon or in high viscosity samples using this immunoturbidimetric assay. Correlation with other laboratory results and clinical findings is recommended. The [place] Free Light Chain was performed using the Binding Site Optilite immunoturbidimetric method. Result obtained with different assay methods or kits cannot be used interchangeably. Performed By: #### 2 4323-8 #### [facility] CLIA [id number] [address] [place] [address] Immunoglobulin light chains.kappa/Immunogl obulin light chains.lambda (S) [Mass ratio] 4.48 High 0.26-1.65 [facility] Comment on above: Order Comment: Speci men Type: BLOOD SPECIMEN Ordering Facility: [facility] Address: [address] [place] [address] Performed By: #### 2 4323-8 #### [facility] CLIA [id number] [address] [place] [address] Immunoglobulin light chains.lambda.free [Mass/Vol] 24.8 mg/L Normal 5.7-26.3 [facility] Comment on above: Order Comment: Speci men Type: BLOOD SPECIMEN Ordering Facility: [facility] Address: [address] [place] [address] Result Comment: Rare ly, increased serum free light chains levels may not be detected or accurately quantified due to prozone phenomenon or in high viscosity samples using this immunoturbidimetric assay. Correlation with other laboratory results and clinical findings is recommended. The [place] Free Light Chain was performed using the Binding Site Optilite immunoturbidimetric method. Result obtained with different assay methods or kits cannot be used interchangeably. Performed By: #### 2 4323-8 #### [facility] CLIA [id number] [address] [place] [address] PROTEIN ELECTROPHORESIS SERU M WITH BRANDON (P)on 05-28-2023 Albumin [Mass/Vol] 3.50 g/dL Normal 3.43-5.41 [facility] Comment on above: Order Comment: Speci men Type: BLOOD SPECIMEN Ordering Facility: [facility] Address: [address] [place] [address] Performed By: #### K LFRS #### [facility] CLIA [id number] [address] [place] [address] [place] Alpha 1 globulin Elph [Mass/Vol] 0.35 g/dL Normal 0.18-0.43 [facility] Comment on above: Order Comment: Speci men Type: BLOOD SPECIMEN Ordering Facility: [facility] Address: [address] [place] [address] Performed By: #### K LFRS #### [facility] CLIA [id number] [address] [place] [address] [place] Alpha 2 globulin Elph [Mass/Vol] 0.73 g/dL Normal 0.42-0.98 [facility] Comment on above: Order Comment: Speci men Type: BLOOD SPECIMEN Ordering Facility: [facility] Address: [address] [place] [address] Performed By: #### K LFRS #### [facility] CLIA [id number] [address] [place] [address] [place] Beta globulin Elph [Mass/Vol] 0.60 g/dL Low 0.61-1.17 [facility] Comment on above: Order Comment: Speci men Type: BLOOD SPECIMEN Ordering Facility: [facility] Address: [address] [place] [address] Performed By: #### K LFRS #### [facility] CLIA [id number] [address] [place] [address] [place] COMMENT (SERUM PROT ELECTRO) Monoclonal Protein analysis (immunofixation) is not indicated. Normal [facility] Comment on above: Order Comment: Speci men Type: BLOOD SPECIMEN Ordering Facility: [facility] Address: [address] [place] [address] Performed By: #### K LFRS #### [facility] CLIA [id number] [address] [place] [address] [place] Gamma globulin Elph [Mass/Vol] 0.72 g/dL Normal 0.53-1.51 [facility] Comment on above: Order Comment: Speci men Type: BLOOD SPECIMEN Ordering Facility: [facility] Address: [address] [place] [address] Performed By: #### K LFRS #### [facility] CLIA [id number] [address] [place] [address] [place] M-PROTEIN LOCATION Normal [facility] Comment on above: Order Comment: Speci men Type: BLOOD SPECIMEN Ordering Facility: [facility] Address: [address] [place] [address] Result Comment: Not Applicable. Performed By: #### K LFRS #### [facility] CLIA [id number] [address] [place] [address] [place] Protein Fractions [Interp] No definitive M protein is identified on protein electrophoresis. Normal No definitive M protein is identified on protein electrophor esis. [facility] Comment on above: Order Comment: Speci men Type: BLOOD SPECIMEN Ordering Facility: [facility] Address: [address] [place] [address] Performed By: #### K LFRS #### [facility] CLIA [id number] [facility] [place] [address] [place] Protein.monoclonal Elph [Mass/Vol] 0.00 g/dL Normal <=0.00 [facility] Comment on above: Order Comment: Speci men Type: BLOOD SPECIMEN Ordering Facility: [facility] Address: [address] [place] [address] Performed By: #### K LFRS #### [facility] CLIA [id number] [address] [place] [id number] [place] SPE STAFF REVIEW Reviewed by Milka Bahena MD Normal [facility] Comment on above: Order Comment: Speci men Type: BLOOD SPECIMEN Ordering Facility: [facility] Address: [address] [place] [address] Performed By: #### K LFRS #### [facility] CLIA [id number] [address] [facility] [place] [address] [place] Prot SerPl-mCncon 05-28-2023 Protein [Mass/Vol] 5.9 g/dL Low 6.3-8.0 [facility] Comment on above: Order Comment: Speci men Type: BLOOD SPECIMEN Ordering Facility: [facility] Address: [address] [place] [address] Performed By: #### K LFRS #### [facility] CLIA [id number] [address] [place] [address] [place] Basic Metabolic Panelon 07-2 Anion gap [Moles/Vol] 12.5 mmol/L Normal 6.0-15.0 [facility] Comment on above: Performed By: #### C MP, CK, CBC, BNP, HS TROP, MG #### [facility] [address] Calcium [Mass/Vol] 8.9 mg/dL Normal 8.6-10.3 [facility] Comment on above: Performed By: #### C MP, CK, CBC, BNP, HS TROP, MG #### [facility] [address] [place] [address] [place] Chloride [Moles/Vol] 103 mmol/L Normal 98-107 [facility] Comment on above: Performed By: #### C MP, CK, CBC, BNP, HS TROP, MG #### [facility] [address] [place] [address] [place] CO2 [Moles/Vol] 30.5 mmol/L Normal 21.0-31.0 [facility] Comment on above: Performed By: #### C MP, CK, CBC, BNP, HS TROP, MG #### [facility] [address] [place] [id number] [place] Creatinine [Mass/Vol] 1.37 mg/dL High 0.60-1.20 [facility] Comment on above: Performed By: #### C MP, CK, CBC, BNP, HS TROP, MG #### [facility] [address] Creatinine Clr Calc Pharmacy 38.04 [facility] Comment on above: Performed By: #### C MP, CK, CBC, BNP, HS TROP, MG #### [facility] [address] [place] [address] [place] GFR/1.73 sq M.predicted MDRD (S/P/Bld) [Vol rate/Area] 39.034 mL/min/{1.73_m2} [facility] Comment on above: Performed By: #### C MP, CK, CBC, BNP, HS TROP, MG #### [address] Glucose [Mass/Vol] 94 mg/dL Normal 70-100 [facility] Comment on above: Result Comment: [facility] Glucose Reference Range is dependent on time and content of last meal. Glucose of more than 200 mg/dL in a nonstressed, ambulatory subject supports the diagnosis of Diabetes Mellitus. ADA recommended reference range Performed By: #### C MP, CK, CBC, BNP, HS TROP, MG #### [address] Potassium [Moles/Vol] 4.0 mmol/L Normal 3.5-5.1 [facility] Comment on above: Performed By: #### C MP, CK, CBC, BNP, HS TROP, MG #### [place] [address] [place] Sodium [Moles/Vol] 142 mmol/L Normal 136-145 [facility] Comment on above: Performed By: #### C MP, CK, CBC, BNP, HS TROP, MG #### [address] Urea nitrogen [Mass/Vol] 21 mg/dL Normal 7-25 [facility] Comment on above: Performed By: #### C MP, CK, CBC, BNP, HS TROP, MG #### [facility] [address] [place] [address] [place] Basophils Auto (Bld) [#/Vol] Ordered By: Lj Ryan on 05-18-2023 Basophils (Bld) [#/Vol] 0.0 10*3/uL 0.0-0.2 [facility] Basophils/100 WBC Auto (Bld) Ordered By: Lj Ryan on 05-18-2023 Basophils/100 WBC (Bld) 0.7 % . [facility] Calcium [Mass/volume] in Ser um or PlasmaOrdered By: Lj Ryan on 05-18-2023 Calcium [Mass/Vol] 8.9 mg/dL 8.6-10.3 [facility] Carbon dioxide, total [Moles /volume] in Serum or PlasmaOrdered By: Lj Ryan on 05-18-2023 CO2 [Moles/Vol] 30.5 mmol/L 21.0-31.0 [facility] Chloride [Moles/volume] in S courtney or PlasmaOrdered By: Lj Ryan on 05-18-2023 Chloride [Moles/Vol] 103 mmol/L 98-107 [facility] Complete Blood Count Auto Di ffon 05-18-2023 Basophils (Bld) [#/Vol] 0.0 10*3/uL Normal 0.0-0.2 [facility] Comment on above: Result Comment: PERF ORMED BY: [facility] [address] [place] [address] PATHOLOGIST ASSOCIATE VETERINARIAN JAMAAL MO M.D. Performed By: #### C MP, CK, CBC, BNP, HS TROP, MG #### [facility] [address] Basophils/100 WBC (Bld) 0.7 % Normal . [facility] Comment on above: Performed By: #### C MP, CK, CBC, BNP, HS TROP, MG #### [facility] [address] [place] [address] [place] Eosinophils (Bld) [#/Vol] 0.1 10*3/uL Normal 0.0-0.45 [facility] Comment on above: Performed By: #### C MP, CK, CBC, BNP, HS TROP, MG #### [address] Eosinophils/100 WBC (Bld) 1.9 % Normal . [facility] Comment on above: Performed By: #### C MP, CK, CBC, BNP, HS TROP, MG #### [address] Erythrocyte distribution width (RBC) [Ratio] 14.1 % Normal 11.9-15.3 [facility] Comment on above: Performed By: #### C MP, CK, CBC, BNP, HS TROP, MG #### [address] Hematocrit (Bld) [Volume fraction] 28.2 % Low 34.0-46.4 [facility] Comment on above: Performed By: #### C MP, CK, CBC, BNP, HS TROP, MG #### [address] Hemoglobin (Bld) [Mass/Vol] 9.7 g/dL Low 11.8-15.4 [facility] Comment on above: Performed By: #### C MP, CK, CBC, BNP, HS TROP, MG #### [address] Lymphocytes (Bld) [#/Vol] 0.9 10*3/uL Low 1.00-4.8 [facility] Comment on above: Performed By: #### C MP, CK, CBC, BNP, HS TROP, MG #### [address] Lymphocytes/100 WBC (Bld) 15.1 % Normal . [facility] Comment on above: Performed By: #### C MP, CK, CBC, BNP, HS TROP, MG #### [address] MCH (RBC) [Entitic mass] 30.2 pg Normal 24.7-34.3 [facility] Comment on above: Performed By: #### C MP, CK, CBC, BNP, HS TROP, MG #### [address] MCV (RBC) [Entitic vol] 87.7 fL Normal 80-100 [facility] Comment on above: Performed By: #### C MP, CK, CBC, BNP, HS TROP, MG #### [address] Mean Corpuscular HGB Conc 34.4 g/dL Normal 32.0-35.0 [facility] Comment on above: Performed By: #### C MP, CK, CBC, BNP, HS TROP, MG #### [address] Monocytes (Bld) [#/Vol] 0.5 10*3/uL Normal 0.0-0.8 [facility] Comment on above: Performed By: #### C MP, CK, CBC, BNP, HS TROP, MG #### [address] Monocytes/100 WBC (Bld) 8.7 % Normal . [facility] Comment on above: Performed By: #### C MP, CK, CBC, BNP, HS TROP, MG #### [address] Neutrophils (Bld) [#/Vol] 4.4 10*3/uL Normal 1.8-7.7 [facility] Comment on above: Performed By: #### C MP, CK, CBC, BNP, HS TROP, MG #### [address] Neutrophils/100 WBC (Bld) 73.6 % Normal . [facility] Comment on above: Performed By: #### C MP, CK, CBC, BNP, HS TROP, MG #### [address] NRBC% 0.1 /100{WBC} Normal 0-0.5 [facility] Comment on above: Performed By: #### C MP, CK, CBC, BNP, HS TROP, MG #### [facility] [address] Platelet mean volume (Bld) [Entitic vol] 7.8 fL Normal 6.3-10.7 [facility] Comment on above: Performed By: #### C MP, CK, CBC, BNP, HS TROP, MG #### [facility] [address] Platelets (Bld) [#/Vol] 314 10*3/uL Normal 150-450 [facility] Comment on above: Performed By: #### C MP, CK, CBC, BNP, HS TROP, MG #### [facility] [address] RBC (Bld) [#/Vol] 3.21 10*6/uL Low 3.60-5.00 [facility] Comment on above: Performed By: #### C MP, CK, CBC, BNP, HS TROP, MG #### [facility] [address] WBC (Bld) [#/Vol] 6.0 10*3/uL Normal 3.8-11.6 [facility] Comment on above: Performed By: #### C MP, CK, CBC, BNP, HS TROP, MG #### [address] Creatinine [Mass/volume] in Serum or PlasmaOrdered By: Lj Ryan on 05-18-2023 Creatinine [Mass/Vol] 1.37 mg/dL 0.60-1.20 [facility] Eosinophils Auto (Bld) [#/Vo l]Ordered By: Lj Ryan on 05-18-2023 Eosinophils (Bld) [#/Vol] 0.1 10*3/uL 0.0-0.45 [facility] Eosinophils/100 WBC Auto (Bl d)Ordered By: Lj Ryan on 05-18-2023 Eosinophils/100 WBC (Bld) 1.9 % . [facility] Erythrocyte distribution wid th Auto (RBC) [Ratio]Ordered By: Lj Ryan on 05-18-2023 Erythrocyte distribution width (RBC) [Ratio] 14.1 % 11.9-15.3 [facility] Glucose [Mass/volume] in Ser um or PlasmaOrdered By: Lj Ryan on 05-18-2023 Glucose [Mass/Vol] 94 mg/dL 70-100 [facility] Comment on above: ADA recommended refe rence rangeRandom Glucose Reference Range is dependent on time and content of last meal. Glucose of more than 200 mg/dL in a nonstressed, ambulatory subject supports the diagnosis of Diabetes Mellitus. Hematocrit Auto (Bld) [Volum e fraction]Ordered By: Lj Ryan on 05-18-2023 Hematocrit (Bld) [Volume fraction] 28.2 % 34.0-46.4 [facility] Hemoglobin [Mass/volume] in BloodOrdered By: Lj Ryan on 05-18-2023 Hemoglobin (Bld) [Mass/Vol] 9.7 g/dL 11.8-15.4 [facility] Leukocytes [#/volume] correc miguel for nucleated erythrocytes in Blood by Automated counOrdered By: Lj Ryan on 05-18-2023 WBC corrected for nucl RBC Auto (Bld) [#/Vol] 6.0 10*3/uL 3.8-11.6 [facility] Lymphocytes Auto (Bld) [#/Vo l]Ordered By: Lj Ryan on 05-18-2023 Lymphocytes (Bld) [#/Vol] 0.9 10*3/uL 1.00-4.8 [facility] Lymphocytes/100 WBC Auto (Bl d)Ordered By: Lj Ryan on 05-18-2023 Lymphocytes/100 WBC (Bld) 15.1 % . [facility] MCH Auto (RBC) [Entitic mass ]Ordered By: Lj Ryan on 05-18-2023 MCH (RBC) [Entitic mass] 30.2 pg 24.7-34.3 [facility] MCHC Auto (RBC) [Mass/Vol]Or dered By: Lj Ryan on 05-18-2023 MCHC (RBC) [Mass/Vol] 34.4 g/dL 32.0-35.0 [facility] MCV Auto (RBC) [Entitic vol] Ordered By: Lj Ryan on 05-18-2023 MCV (RBC) [Entitic vol] 87.7 fL 80-100 [facility] Magnesiumon 05-18-2023 Magnesium [Mass/Vol] 2.1 mg/dL Normal 1.9-2.7 [facility] Comment on above: Result Comment: PERF ORMED BY: [facility] [address] [place] [address] PATHOLOGIST ASSOCIATE VETERINARIAN JAMAAL OM M.D. Performed By: #### C MP, CK, CBC, BNP, HS TROP, MG #### [facility] [address] Magnesium [Mass/volume] in S courtney or PlasmaOrdered By: Lj Ryan on 05-18-2023 Magnesium [Mass/Vol] 2.1 mg/dL 1.9-2.7 [facility] Monocytes Auto (Bld) [#/Vol] Ordered By: Lj Ryan on 05-18-2023 Monocytes (Bld) [#/Vol] 0.5 10*3/uL 0.0-0.8 [facility] Monocytes/100 WBC Auto (Bld) Ordered By: Lj Ryan on 05-18-2023 Monocytes/100 WBC (Bld) 8.7 % . [facility] Neutrophils Auto (Bld) [#/Vo l]Ordered By: Lj Ryan on 05-18-2023 Neutrophils (Bld) [#/Vol] 4.4 10*3/uL 1.8-7.7 [facility] Neutrophils/100 WBC Auto (Bl d)Ordered By: Lj Ryan on 05-18-2023 Neutrophils/100 WBC (Bld) 73.6 % . [facility] No Panel InformationOrdered By: Lj Ryan on 05-18-2023 Estimated GFR (CKD-EPI) 39.034 mL/Min [facility] Creatinine Clearance (Chem 38.04 [facility] Nucleated erythrocytes [Pres ence] in Blood by Automated countOrdered By: Lj Ryan on 05-18-2023 Nucleated RBC Auto Ql (Bld) 0.1 /100{WBC} 0-0.5 [facility] Phosphate [Mass/volume] in S courtney or PlasmaOrdered By: Lj Ryan on 05-18-2023 Phosphate [Mass/Vol] 5.3 mg/dL 3.7-7.2 [facility] Phosphoruson 05-18-2023 Phosphate [Mass/Vol] 5.3 mg/dL Normal 3.7-7.2 [facility] Comment on above: Performed By: #### C MP, CK, CBC, BNP, HS TROP, MG #### [facility] [address] Platelet mean volume Auto (B ld) [Entitic vol]Ordered By: Lj Ryan on 05-18-2023 Platelet mean volume (Bld) [Entitic vol] 7.8 fL 6.3-10.7 [facility] Platelets Auto (Bld) [#/Vol] Ordered By: Lj Ryan on 05-18-2023 Platelets (Bld) [#/Vol] 314 10*3/uL 150-450 [facility] Potassium [Moles/volume] in Serum or PlasmaOrdered By: Lj Ryan on 05-18-2023 Potassium [Moles/Vol] 4.0 mmol/L 3.5-5.1 [facility] RBC Auto (Bld) [#/Vol]Ordere d By: Lj Ryan on 05-18-2023 RBC (Bld) [#/Vol] 3.21 10*6/uL 3.60-5.00 [facility] Serum or plasma anion gap de terminationOrdered By: Lj Ryan on 05-18-2023 Anion gap [Moles/Vol] 12.5 mmol/L 6.0-15.0 [facility] Sodium [Moles/volume] in Ser um or PlasmaOrdered By: Lj Ryan on 05-18-2023 Sodium [Moles/Vol] 142 mmol/L 136-145 [facility] US venous duplex LE BIon US venous duplex LE BI [facility] [place] [address] [place] [address] Ultrasound Report Signed Patient: Lashaun Joaquin MR#: [id number] : 1940 Acct:[id number] Age/Sex: 82 / F ADM Date: 05/17/23 Loc: Room: [address] [place] [address] Type: ADM INOo Attending Dr: Lj Ryan DO Ordering Provider: Parris Ch DO Date of Service: 05/17/23 US/US venous duplex LE BI: pain, edema Copies to: DO Lj Christiansen DO BILATERAL LOWER EXTREMITY VENOUS DUPLEX INDICATION: Swollen painful legs PROCEDURE: Color-flow duplex scanning is used to interrogate the deep venous system of the right and left lower extremities. The common femoral vein, femoral vein and popliteal vein show good compressibility with normal proximal and distal augmentation. The posterior tibial and peroneal veins are compressible. US/US venous duplex LE BI IMPRESSION: NO EVIDENCE FOR DEEP VEIN THROMBOSIS OR PROXIMAL SUPERFICIAL THROMBOPHLEBITIS IN THE RIGHT OR LEFT LOWER EXTREMITY. Impression dictated by: Seth Garcia M.D.05/18/2023 10:08 AM Dictation Location: [place] [address] Tech: [facility] Transcribed By: LAURA 05/18/23 1008 Dictated By: Seth Garcia MD 05/18/23 1008 Signed By: 05/18/23 1008 Normal [facility] Urea nitrogen [Mass/volume] in Serum or PlasmaOrdered By: Lj Rayn on 05-18-2023 Urea nitrogen [Mass/Vol] 21 mg/dL 05-22 [facility] WBC Auto (Bld) [#/Vol]Ordere d By: Lj Ryan on 05-18-2023 WBC (Bld) [#/Vol] 6.0 10*3/uL 3.8-11.6 [facility] Alanine aminotransferase [En zymatic activity/volume] in Serum or PlasmaOrdered By: Parris Ch on 05-17-2023 ALT [Catalytic activity/Vol] 14 U/L [facility] Albumin [Mass/volume] in Ser um or Plasma by Bromocresol green (BCG) dye binding methoOrdered By: Parris Ch on 05-17-2023 Albumin BCG dye [Mass/Vol] 4.0 g/dL 3.5-5.7 [facility] Alkaline phosphatase [Enzyma tic activity/volume] in Serum or PlasmaOrdered By: Parris Ch on 05-17-2023 ALP [Catalytic activity/Vol] 44 U/L 34-104 [facility] Aspartate aminotransferase [ Enzymatic activity/volume] in Serum or PlasmaOrdered By: Parris Ch on 05-17-2023 AST [Catalytic activity/Vol] 16 U/L 13-39 [facility] B-Type Natriuretic Peptideon 05-17-2023 Natriuretic peptide B (Bld) [Mass/Vol] 450.0 pg/mL High 5-100 [facility] Comment on above: Result Comment: PERF ORMED BY: [place] [address] PATHOLOGIST ASSOCIATE VETERINARIAN JAMAAL [place] M.D. Performed By: #### C MP, CK, CBC, BNP, HS TROP, MG #### [address] Bilirubin.total [Mass/volume ] in Serum or PlasmaOrdered By: Parris Ch on 05-17-2023 Bilirubin [Mass/Vol] 0.7 mg/dL 0.3-1.0 [facility] CT angio chest PE protocolon 05-17-2023 CT angio chest PE protocol [facility] [address] [place] [address] CT Scan Report Signed Patient: Lashaun Joaquin MR#: [id number] : 1940 Acct:[id number] Age/Sex: 82 / F ADM Date: 05/17/23 Loc: ER Room: Type: PRE ER Attending Dr: Copies to: Parris Ch DO Ordering Provider: Parris Ch DO Date of Service: 05/17/23 CT/CT angio chest PE protocol: f CT ANGIOGRAM OF THE CHEST, PULMONARY EMBOLISM PROTOCOL: CLINICAL INFORMATION: Shortness of breath. Heart stents placed in February. COMPARISON: None TECHNIQUE: Following intravenous injection of contrast CT scans of the chest were obtained using pulmonary embolism protocol. Coronal and sagittal reconstructed images, as well as volume rendered CT pulmonary angiographic images were also submitted.The CT exam was performed using one or more of the following dose reduction techniques: Automated exposure control, adjustment of the MA and/or Kv according to patient size, or use of the iterative reconstruction technique. FINDINGS: Pulmonary Vasculature: Contrast bolus is adequate for evaluation of pulmonary embolism. Pulmonary trunk appears nondilated. No filling defects are identified to suggest pulmonary embolism. Mediastinum : Thoracic aorta is normal in caliber. No pericardial effusion. Cardiomegaly. No lymphadenopathy. The esophagus is grossly unremarkable. Lungs: Respiratory motion limits evaluation. Trace bilateral pleural effusions. Bibasilar atelectasis with septal thickening. Somewhat ill-defined consolidations are seen involving the upper lobes. No pneumothorax. Trachea and distal airways appear patent. Upper abdomen: No acute findings. Cyst right kidney. Soft tissue/bones: Soft tissues surrounding the chest wall demonstrate no acute findings. Osseous structures demonstrate degenerative change. CT/CT angio chest PE protocol IMPRESSION: 1. NO EVIDENCE OF ACUTE PULMONARY EMBOLISM. 2. CARDIOMEGALY WITH TRACE BILATERAL PLEURAL EFFUSIONS AND SEPTAL THICKENING SUGGESTIVE OF UNDERLYING CHF. 3. SOMEWHAT ILL-DEFINED CONSOLIDATIONS INVOLVING THE UPPER LOBES. DEVELOPING PNEUMONIA CANNOT BE EXCLUDED. REPEAT CT AFTER THERAPY IS RECOMMENDED TO ENSURE RESOLUTION. Impression dictated by: Epifanio Lyon Jr., CesarOManuel05/17/2023 12:10 PM Dictation Location: [place] [address] Transcribed By: [facility] 05/17/23 1210 Dictated By: Epifanio Lyon Jr, DO 05/17/23 1152 Signed By: 05/17/23 1210 Normal [facility] Complete Blood Count Auto Di ffon 05-17-2023 Basophils (Bld) [#/Vol] 0.1 10*3/uL Normal 0.0-0.2 [facility] Comment on above: Result Comment: PERF ORMED BY: [facility] [address] [place] [address] PATHOLOGIST ASSOCIATE VETERINARIAN JAMAAL [place] M.D. Performed By: #### C MP, CK, CBC, BNP, HS TROP, MG #### [address] Basophils/100 WBC (Bld) 0.5 % Normal . [facility] Comment on above: Performed By: #### C MP, CK, CBC, BNP, HS TROP, MG #### [address] Eosinophils (Bld) [#/Vol] 0.1 10*3/uL Normal 0.0-0.45 [facility] Comment on above: Performed By: #### C MP, CK, CBC, BNP, HS TROP, MG #### [address] Eosinophils/100 WBC (Bld) 0.5 % Normal . [facility] Comment on above: Performed By: #### C MP, CK, CBC, BNP, HS TROP, MG #### [address] Erythrocyte distribution width (RBC) [Ratio] 14.1 % Normal 11.9-15.3 [facility] Comment on above: Performed By: #### C MP, CK, CBC, BNP, HS TROP, MG #### [address] Hematocrit (Bld) [Volume fraction] 29.0 % Low 34.0-46.4 [facility] Comment on above: Performed By: #### C MP, CK, CBC, BNP, HS TROP, MG #### [address] Hemoglobin (Bld) [Mass/Vol] 9.9 g/dL Low 11.8-15.4 [facility] Comment on above: Performed By: #### C MP, CK, CBC, BNP, HS TROP, MG #### [address] Lymphocytes (Bld) [#/Vol] 1.0 10*3/uL Normal 1.00-4.8 [facility] Comment on above: Performed By: #### C MP, CK, CBC, BNP, HS TROP, MG #### [address] Lymphocytes/100 WBC (Bld) 9.3 % Normal . [facility] Comment on above: Performed By: #### C MP, CK, CBC, BNP, HS TROP, MG #### [address] MCH (RBC) [Entitic mass] 29.7 pg Normal 24.7-34.3 [facility] Comment on above: Performed By: #### C MP, CK, CBC, BNP, HS TROP, MG #### [address] MCV (RBC) [Entitic vol] 87.4 fL Normal 80-100 [facility] Comment on above: Performed By: #### C MP, CK, CBC, BNP, HS TROP, MG #### [address] Mean Corpuscular HGB Conc 34.0 g/dL Normal 32.0-35.0 [facility] Comment on above: Performed By: #### C MP, CK, CBC, BNP, HS TROP, MG #### [address] Monocytes (Bld) [#/Vol] 0.6 10*3/uL Normal 0.0-0.8 [facility] Comment on above: Performed By: #### C MP, CK, CBC, BNP, HS TROP, MG #### [place] [address] [place] Monocytes/100 WBC (Bld) 22.37 % High 0.00-20.00 [facility] Comment on above: Result Comment: For adults in ED, MDW > 20.0 may be associated with a higher risk of sepsis during the first 12 hrs of hospital admission Performed By: #### C MP, CK, CBC, BNP, HS TROP, MG #### [address] Monocytes/100 WBC (Bld) 5.5 % Normal . [facility] Comment on above: Performed By: #### C MP, CK, CBC, BNP, HS TROP, MG #### [address] Neutrophils (Bld) [#/Vol] 8.6 10*3/uL High 1.8-7.7 [facility] Comment on above: Performed By: #### C MP, CK, CBC, BNP, HS TROP, MG #### [address] Neutrophils/100 WBC (Bld) 84.2 % Normal . [facility] Comment on above: Performed By: #### C MP, CK, CBC, BNP, HS TROP, MG #### [address] NRBC% 0.0 /100{WBC} Normal 0-0.5 [facility] Comment on above: Performed By: #### C MP, CK, CBC, BNP, HS TROP, MG #### [address] Platelet mean volume (Bld) [Entitic vol] 8.5 fL Normal 6.3-10.7 [facility] Comment on above: Performed By: #### C MP, CK, CBC, BNP, HS TROP, MG #### [address] Platelets (Bld) [#/Vol] 326 10*3/uL Normal 150-450 [facility] Comment on above: Performed By: #### C MP, CK, CBC, BNP, HS TROP, MG #### [address] RBC (Bld) [#/Vol] 3.32 10*6/uL Low 3.60-5.00 [facility] Comment on above: Performed By: #### C MP, CK, CBC, BNP, HS TROP, MG #### [address] WBC (Bld) [#/Vol] 10.2 10*3/uL Normal 3.8-11.6 [facility] Comment on above: Performed By: #### C MP, CK, CBC, BNP, HS TROP, MG #### [address] WBC (Bld) [#/Vol] 12.1 10*3/uL High 3.8-11.6 [facility] Comment on above: Performed By: #### C MP, CK, CBC, BNP, HS TROP, MG #### [address] Comprehensive Metabolic Pane anibal 05-17-2023 Albumin [Mass/Vol] 4.0 g/dL Normal 3.5-5.7 [facility] Comment on above: Performed By: #### C MP, CK, CBC, BNP, HS TROP, MG #### [address] Albumin/Globulin [Mass ratio] 1.4 {ratio} Normal [facility] Comment on above: Performed By: #### C MP, CK, CBC, BNP, HS TROP, MG #### [address] ALP [Catalytic activity/Vol] 44 U/L Normal 34-104 [facility] Comment on above: Performed By: #### C MP, CK, CBC, BNP, HS TROP, MG #### [address] ALT [Catalytic activity/Vol] 14 U/L Normal 7-52 [facility] Comment on above: Performed By: #### C MP, CK, CBC, BNP, HS TROP, MG #### [address] Anion gap [Moles/Vol] 11.3 mmol/L Normal 6.0-15.0 [facility] Comment on above: Performed By: #### C MP, CK, CBC, BNP, HS TROP, MG #### [address] AST [Catalytic activity/Vol] 16 U/L Normal 13-39 [facility] Comment on above: Performed By: #### C MP, CK, CBC, BNP, HS TROP, MG #### [address] Bilirubin [Mass/Vol] 0.7 mg/dL Normal 0.3-1.0 [facility] Comment on above: Performed By: #### C MP, CK, CBC, BNP, HS TROP, MG #### [address] Calcium [Mass/Vol] 9.1 mg/dL Normal 8.6-10.3 [facility] Comment on above: Performed By: #### C MP, CK, CBC, BNP, HS TROP, MG #### [address] Chloride [Moles/Vol] 107 mmol/L Normal 98-107 [facility] Comment on above: Performed By: #### C MP, CK, CBC, BNP, HS TROP, MG #### [address] CO2 [Moles/Vol] 28.3 mmol/L Normal 21.0-31.0 [facility] Comment on above: Performed By: #### C MP, CK, CBC, BNP, HS TROP, MG #### [address] Creatinine [Mass/Vol] 1.12 mg/dL Normal 0.60-1.20 [facility] Comment on above: Performed By: #### C MP, CK, CBC, BNP, HS TROP, MG #### [address] Creatinine Clr Calc Pharmacy 47.90 [facility] Comment on above: Performed By: #### C MP, CK, CBC, BNP, HS TROP, MG #### [address] GFR/1.73 sq M.predicted MDRD (S/P/Bld) [Vol rate/Area] 49.710 mL/min/{1.73_m2} [facility] Comment on above: Performed By: #### C MP, CK, CBC, BNP, HS TROP, MG #### [facility] [address] Globulin (S) [Mass/Vol] 2.9 g/dL Normal [facility] Comment on above: Performed By: #### C MP, CK, CBC, BNP, HS TROP, MG #### [facility] [address] Glucose [Mass/Vol] 100 mg/dL Normal 70-100 [facility] Comment on above: Result Comment: [facility] Glucose Reference Range is dependent on time and content of last meal. Glucose of more than 200 mg/dL in a nonstressed, ambulatory subject supports the diagnosis of Diabetes Mellitus. ADA recommended reference range Performed By: #### C MP, CK, CBC, BNP, HS TROP, MG #### [address] Potassium [Moles/Vol] 4.6 mmol/L Normal 3.5-5.1 [facility] Comment on above: Performed By: #### C MP, CK, CBC, BNP, HS TROP, MG #### [address] Protein [Mass/Vol] 6.9 g/dL Normal 6.4-8.9 [facility] Comment on above: Performed By: #### C MP, CK, CBC, BNP, HS TROP, MG #### [address] Sodium [Moles/Vol] 142 mmol/L Normal 136-145 [facility] Comment on above: Performed By: #### C MP, CK, CBC, BNP, HS TROP, MG #### [address] Urea nitrogen [Mass/Vol] 16 mg/dL Normal 7-25 [facility] Comment on above: Performed By: #### C MP, CK, CBC, BNP, HS TROP, MG #### [address] Creatine Kinaseon 07-20-2023 CK [Catalytic activity/Vol] 49 U/L Normal [facility] Comment on above: Performed By: #### C MP, CK, CBC, BNP, HS TROP, MG #### [facility] [address] [place] [id number] [facility] Creatine kinase [Enzymatic a ctivity/volume] in Serum or PlasmaOrdered By: Parris Ch on 05-17-2023 CK [Catalytic activity/Vol] 49 U/L [facility] ECG 12 lead ECGon 05-17-2023 ECG 12 lead ECG [facility] Main [place] [address] [place] [address] Electrocardiograph Report Signed Patient: Lashaun Joaquin MR#: [id number] : 1940 Acct:[id number] Age/Sex: 82 / F ADM Date: 05/17/23 Loc: Room: [address] [place] [address] Type: ADM INOo Attending Dr: Lj Ryan DO Ordering Provider: Parris Ch DO Date of Service: 05/17/23 ECG/ECG 12 lead ECG: Shortness of Breath/Dyspnea Copies to: Test Reason : Blood Pressure : 216/095 mmHG Vent. Rate : 061 BPM Atrial Rate : 061 BPM P-R Int : 162 ms QRS Dur : 070 ms QT Int : 440 ms P-R-T Axes : 040 060 063 degrees QTc Int : 442 ms Sinus rhythm with premature atrial complexes Otherwise normal ECG When compared with ECG of 09-MAR-2023 11:25, premature atrial complexes are now present Confirmed by PARRIS CH DO ([id number]) on 05/17/2023 8:14:27 PM Referred By: Electronically Signed By:PARRIS CH DO Transcribed By: MUS Signed By Parris Ch DO 05/17 Normal [facility] Globulin Calc (S) [Mass/Vol] Ordered By: Parris Ch on 05-17-2023 Globulin (S) [Mass/Vol] 2.9 g/dL [facility] Laboratory - CoagulationOrde red By: Parris Ch on 05-17-2023 PT Coag (PPP) [Time] 12.5 s 9.0-12.9 [facility] Magnesiumon 05-17-2023 Magnesium [Mass/Vol] 2.1 mg/dL Normal 1.9-2.7 [facility] Comment on above: Result Comment: PERF ORMED BY: [facility] [address] [place] [address] PATHOLOGIST ASSOCIATE VETERINARIAN JAMAAL [place] M.D. Performed By: #### C MP, CK, CBC, BNP, HS TROP, MG #### [facility] [address] Monocyte distribution width [Entitic volume] in Blood by AutomatedOrdered By: Parris Ch on 05-17-2023 Monocyte distribution width Auto (Bld) [Entitic vol] 22.37 % 0.00-20.00 [facility] Comment on above: For adults in ED, MD W > 20.0 may be associated with a higher risk of sepsis during the first 12 hrs of hospital admission Natriuretic peptide B [Mass/ Vol]Ordered By: Parris Ch on 05-17-2023 Natriuretic peptide B (Bld) [Mass/Vol] 450.0 pg/mL 5-100 [facility] Platelet poor plasma interna tional normalized ratio (INR) by coagulation assay (relatOrdered By: Parris Ch on 05-17-2023 INR Coag (PPP) [Relative time] 1.1 {INR} [facility] Comment on above: INR Therapeutic Rang e A) Pre- and Peroperative OAT started two weeks before surgery. NOT HIP SURGERY: 1.5 - 2.5 HIP SURGERY: 2 - 3B) Primary and secondary prevention of venous THROMBOSIS: 2 - 3C) Active venous thrombosis, pulmonary embolismand prevention of recurrent venous thrombosis: 2 - 3D) Prevention of arterial thromboembolismincluding patients with mechanical heart valves: 3 - 4.5 Protein [Mass/volume] in Ser um or PlasmaOrdered By: Parris Ch on 05-17-2023 Protein [Mass/Vol] 6.9 g/dL 6.4-8.9 [facility] Prothrombin Time INRon 05-17 INR Coag (PPP) [Relative time] 1.1 {INR} Normal [facility] Comment on above: Result Comment: INR Therapeutic Range A) Pre- and Peroperative OAT started two weeks before surgery. NOT HIP SURGERY: 1.5 - 2.5 HIP SURGERY: 2 - 3 B) Primary and secondary prevention of venous THROMBOSIS: 2 - 3 C) Active venous thrombosis, pulmonary embolism and prevention of recurrent venous thrombosis: 2 - 3 D) Prevention of arterial thromboembolism including patients with mechanical heart valves: 3 - 4.5 PERFORMED BY: [place] [address] PATHOLOGIST ASSOCIATE VETERINARIAN JAMAAL [place] M.D. Performed By: #### C MP, CK, CBC, BNP, HS TROP, MG #### [place] [id number] [facility] PT Coag (PPP) [Time] 12.5 s Normal 9.0-12.9 [facility] Comment on above: Performed By: #### C MP, CK, CBC, BNP, HS TROP, MG #### [address] [address] [facility] Serum or plasma albumin/glob ulin mass ratioOrdered By: Parris Ch on 05-17-2023 Albumin/Globulin [Mass ratio] 1.4 {ratio} [facility] Troponin I High Sensitivityo n 05-17-2023 Troponin I High Sensitivity 10.2 pg/mL Normal 0.0-15.0 [facility] Comment on above: Result Comment: PERF ORMED BY: [place] [address] PATHOLOGIST ASSOCIATE VETERINARIAN JAMAAL [place] M.D. Performed By: #### C MP, CK, CBC, BNP, HS TROP, MG #### [place] [id number] [facility] Troponin I.cardiac [Mass/vol ume] in Serum or Plasma by Detection limit <= 0.01 ng/Ordered By: Parris Ch on 05-17-2023 Troponin I.cardiac DL <= 0.01 ng/mL [Mass/Vol] 10.2 pg/mL 0.0-15.0 [facility] ECG 12 lead ECGon 03-09-2023 ECG 12 lead ECG [facility] Main [place] [address] [place], [place] [id number] Electrocardiograph Report Signed Patient: Lashaun Joaquin MR#: [id number] : 1940 Acct:[id number] Age/Sex: 82 / F ADM Date: 03/09/23 Loc: Room: Type: [facility] Attending Dr: Jonna Reyes DO Ordering Provider: Jonna Reyes DO Date of Service: 03/09/2310/20/1117 ECG/ECG 12 lead ECG: Post Angioplasty Procedure Copies to: Test Reason : Blood Pressure : / mmHG Vent. Rate : 051 BPM Atrial Rate : 051 BPM P-R Int : 174 ms QRS Dur : 082 ms QT Int : 488 ms P-R-T Axes : 047 045 063 degrees QTc Int : 449 ms Sinus bradycardia Otherwise normal ECG No previous ECGs available Confirmed by SETH MARKHAM DO ([id number]) on 03/11/2023 11:33:25 AM Referred By: [facility] Electronically Signed By:SETH MARKHAM DO Transcribed By: MUS Signed By Seth Markham DO 03/11 1133 Normal [facility] Activated partial thrombopla stin time (aPTT) in platelet poor plasma by coagulation aOrdered By: Jonna Reyes on 03-08-2023 aPTT Coag (PPP) [Time] 32.0 s 25.1-36.5 [facility] Band form neutrophils/100 WB C Manual cnt (Bld)Ordered By: Jonna Reyes on 03-08-2023 Band form neutrophils/100 WBC (Bld) 4 % 0-5 [facility] Basophils Auto (Bld) [#/Vol] Ordered By: Jonna Reyes on 03-08-2023 Basophils (Bld) [#/Vol] N/A [facility] Basophils/100 WBC Auto (Bld) Ordered By: Jonna Reyes on 03-08-2023 Basophils/100 WBC (Bld) N/A [facility] Basophils/100 WBC Manual cnt (Bld)Ordered By: Jonna Reyes on 03-08-2023 Basophils/100 WBC (Bld) 0 % 0-2 [facility] Blood Urea Nitrogenon 2022 Urea nitrogen [Mass/Vol] 21 mg/dL Normal 7-25 [facility] Comment on above: Performed By: #### C MP, CK, CBC, BNP, HS TROP, MG #### [facility] [address] Carbon dioxide, total [Moles /volume] in Serum or PlasmaOrdered By: Jonna Reyes on 03-08-2023 CO2 [Moles/Vol] 33.1 mmol/L 21.0-31.0 [facility] Chloride [Moles/volume] in S [place]ney or PlasmaOrdered By: Jonna Reyes on 03-08-2023 Chloride [Moles/Vol] 104 mmol/L 98-107 [facility] Cholesterol [Mass/volume] in Serum or PlasmaOrdered By: Jonna Reyes on 03-08-2023 Cholesterol [Mass/Vol] 151 mg/dL 140-200 [facility] Comment on above: Chol less than 200 m g/dl low riskChol 201-239 mg/dl borderline riskChol 240 mg/dl and greater high risk Cholesterol in LDL Calc [Mas s/Vol]Ordered By: Jonna Reyes on 03-08-2023 Cholesterol in LDL [Mass/Vol] 100 mg/dL 0-100 [facility] Comment on above: LDL ATP III CLASSIFI CATIONLDL less than 100 mg/dL OptimalLDL 100-129 mg/dL Near or above optimalLDL 130-159 mg/dL Borderline highLDL 160-189 mg/dL HighLDL greater than 189 mg/dL Very high Cholesterol in VLDL Calc [Ma ss/Vol]Ordered By: Jonna Reyes on 03-08-2023 Cholesterol in VLDL [Mass/Vol] 13 mg/dL [facility] Coagulation Profileon 2022 aPTT Coag (Bld) [Time] 32.0 s Normal 25.1-36.5 [facility] Comment on above: Result Comment: PERF ORMED BY: [place] [address] PATHOLOGIST ASSOCIATE VETERINARIAN JAMAAL MO M.D. Performed By: #### C MP, CK, CBC, BNP, HS TROP, MG #### [facility] [address] INR Coag (PPP) [Relative time] 1.1 {INR} Normal [facility] Comment on above: Result Comment: INR Therapeutic Range A) Pre- and Peroperative OAT started two weeks before surgery. NOT HIP SURGERY: 1.5 - 2.5 HIP SURGERY: 2 - 3 B) Primary and secondary prevention of venous THROMBOSIS: 2 - 3 C) Active venous thrombosis, pulmonary embolism and prevention of recurrent venous thrombosis: 2 - 3 D) Prevention of arterial thromboembolism including patients with mechanical heart valves: 3 - 4.5 Performed By: #### C MP, CK, CBC, BNP, HS TROP, MG #### [address] PT Coag (PPP) [Time] 12.2 s Normal 9.0-12.9 [facility] Comment on above: Performed By: #### C MP, CK, CBC, BNP, HS TROP, MG #### [address] Creatinineon 03-08-2023 Creatinine [Mass/Vol] 1.14 mg/dL Normal 0.60-1.20 [facility] Comment on above: Performed By: #### C MP, CK, CBC, BNP, HS TROP, MG #### [address] GFR/1.73 sq M.predicted MDRD (S/P/Bld) [Vol rate/Area] 48.665 mL/min/{1.73_m2} Normal [facility] Comment on above: Performed By: #### C MP, CK, CBC, BNP, HS TROP, MG #### [address] Creatinine [Mass/volume] in Serum or PlasmaOrdered By: Jonna Reyes on 03-08-2023 Creatinine [Mass/Vol] 1.14 mg/dL 0.60-1.20 [facility] Diff and CBCon 03-08-2023 Band form neutrophils/100 WBC (Bld) 4 % Normal 0-5 [facility] Comment on above: Performed By: #### C MP, CK, CBC, BNP, HS TROP, MG #### [address] [address] [place] Basophils/100 WBC (Bld) 0 % Normal 0-2 [facility] Comment on above: Performed By: #### C MP, CK, CBC, BNP, HS TROP, MG #### [address] Eosinophils/100 WBC (Bld) 2 % Normal 1-3 [facility] Comment on above: Performed By: #### C MP, CK, CBC, BNP, HS TROP, MG #### [address] Erythrocyte distribution width (RBC) [Ratio] 14.1 % Normal 11.9-15.3 [facility] Comment on above: Performed By: #### C MP, CK, CBC, BNP, HS TROP, MG #### [address] Hematocrit (Bld) [Volume fraction] 30.7 % Low 34.0-46.4 [facility] Comment on above: Performed By: #### C MP, CK, CBC, BNP, HS TROP, MG #### [address] Hemoglobin (Bld) [Mass/Vol] 10.3 g/dL Low 11.8-15.4 [facility] Comment on above: Performed By: #### C MP, CK, CBC, BNP, HS TROP, MG #### [address] Large Platelets Slight Normal [facility] Comment on above: Result Comment: PERF ORMED BY: [place] [address] PATHOLOGIST ASSOCIATE VETERINARIAN JAMAAL MO M.D. Performed By: #### C MP, CK, CBC, BNP, HS TROP, MG #### [address] Lymphocytes/100 WBC (Bld) 16 % Low 18-42 [facility] Comment on above: Performed By: #### C MP, CK, CBC, BNP, HS TROP, MG #### [address] [place] [address] [place] MCH (RBC) [Entitic mass] 29.0 pg Normal 24.7-34.3 [facility] Comment on above: Performed By: #### C MP, CK, CBC, BNP, HS TROP, MG #### [address] MCV (RBC) [Entitic vol] 86.2 fL Normal 80-100 [facility] Comment on above: Performed By: #### C MP, CK, CBC, BNP, HS TROP, MG #### [address] Mean Corpuscular HGB Conc 33.6 g/dL Normal 32.0-35.0 [facility] Comment on above: Performed By: #### C MP, CK, CBC, BNP, HS TROP, MG #### [address] Metamyelocytes 1 % High 0-0 [facility] Comment on above: Performed By: #### C MP, CK, CBC, BNP, HS TROP, MG #### [address] Monocytes/100 WBC (Bld) 3 % Normal 2-11 [facility] Comment on above: Performed By: #### C MP, CK, CBC, BNP, HS TROP, MG #### [address] Ovalocytes Slight Normal [facility] Comment on above: Performed By: #### C MP, CK, CBC, BNP, HS TROP, MG #### [address] Platelet Estimate Normal Normal Normal [facility] Comment on above: Performed By: #### C MP, CK, CBC, BNP, HS TROP, MG #### [address] Platelet mean volume (Bld) [Entitic vol] 9.0 fL Normal 6.3-10.7 [facility] Comment on above: Result Comment: PERF ORMED BY: [place] [address] PATHOLOGIST ASSOCIATE VETERINARIAN JAMAAL MO M.D. Performed By: #### C MP, CK, CBC, BNP, HS TROP, MG #### [address] Platelets (Bld) [#/Vol] 276 10*3/uL Normal 150-450 [facility] Comment on above: Performed By: #### C MP, CK, CBC, BNP, HS TROP, MG #### [address] Poikilocytosis Slight Normal [facility] Comment on above: Performed By: #### C MP, CK, CBC, BNP, HS TROP, MG #### [address] RBC (Bld) [#/Vol] 3.56 10*6/uL Low 3.60-5.00 [facility] Comment on above: Performed By: #### C MP, CK, CBC, BNP, HS TROP, MG #### [address] Segmented neutrophils/100 WBC (Bld) 74 % High 50-70 [facility] Comment on above: Performed By: #### C MP, CK, CBC, BNP, HS TROP, MG #### [address] WBC (Bld) [#/Vol] 6.2 10*3/uL Normal 3.8-11.6 [facility] Comment on above: Performed By: #### C MP, CK, CBC, BNP, HS TROP, MG #### [address] WBC (Bld) [#/Vol] 8.6 10*3/uL Normal 3.8-11.6 [facility] Comment on above: Performed By: #### C MP, CK, CBC, BNP, HS TROP, MG #### [address] Electrolyteson 05-11-2023 Anion gap [Moles/Vol] 9.0 mmol/L Normal 6.0-15.0 [facility] Comment on above: Performed By: #### C MP, CK, CBC, BNP, HS TROP, MG #### [facility] [address] Chloride [Moles/Vol] 104 mmol/L Normal 98-107 [facility] Comment on above: Performed By: #### C MP, CK, CBC, BNP, HS TROP, MG #### [facility] [address] CO2 [Moles/Vol] 33.1 mmol/L High 21.0-31.0 [facility] Comment on above: Performed By: #### C MP, CK, CBC, BNP, HS TROP, MG #### [facility] [address] Potassium [Moles/Vol] 5.1 mmol/L Normal 3.5-5.1 [facility] Comment on above: Performed By: #### C MP, CK, CBC, BNP, HS TROP, MG #### [facility] [address] Sodium [Moles/Vol] 141 mmol/L Normal 136-145 [facility] Comment on above: Performed By: #### C MP, CK, CBC, BNP, HS TROP, MG #### [facility] [address] [place] [address] [place] Eosinophils Auto (Bld) [#/Vo l]Ordered By: Jonna Reyes on 03-08-2023 Eosinophils (Bld) [#/Vol] N/A [facility] Eosinophils/100 WBC Auto (Bl d)Ordered By: Jonna Reyes on 03-08-2023 Eosinophils/100 WBC (Bld) N/A [facility] Eosinophils/100 WBC Manual c nt (Bld)Ordered By: Jonna Reyes on 03-08-2023 Eosinophils/100 WBC (Bld) 2 % 1-3 [facility] Erythrocyte distribution wid th Auto (RBC) [Ratio]Ordered By: Jonna Reyes on 03-08-2023 Erythrocyte distribution width (RBC) [Ratio] 14.1 % 11.9-15.3 [facility] Hematocrit Auto (Bld) [Volum e fraction]Ordered By: Jonna Reyes on 03-08-2023 Hematocrit (Bld) [Volume fraction] 30.7 % 34.0-46.4 [facility] Hemoglobin [Mass/volume] in BloodOrdered By: Jonna Reyes on 03-08-2023 Hemoglobin (Bld) [Mass/Vol] 10.3 g/dL 11.8-15.4 [facility] Laboratory - Chemistry and C hemistry - challengeon 03-08-2023 Cholesterol [Mass/Vol] 151\S\151 Normal 140-200 -[facility] y 250 DO Work Phone: Comment on above: Chol less than 200 m g/dl low risk Chol 201-239 mg/dl borderline risk Chol 240 mg/dl and greater high risk Cholesterol in LDL [Mass/Vol] 100\S\100 Normal 0-100 [facility] y 250 DO Work Phone: Comment on above: LDL ATP III CLASSIFI CATION LDL less than 100 mg/dL Optimal LDL 100-129 mg/dL Near or above optimal LDL 130-159 mg/dL Borderline high LDL 160-189 mg/dL High LDL greater than 189 mg/dL Very high Laboratory - CoagulationOrde red By: Jonna Reyes on 03-08-2023 PT Coag (PPP) [Time] 12.2 s 9.0-12.9 [facility] Leukocytes [#/volume] correc miguel for nucleated erythrocytes in Blood by Automated counOrdered By: Jonna Reyes on 03-08-2023 WBC corrected for nucl RBC Auto (Bld) [#/Vol] 6.2 10*3/uL 3.8-11.6 [facility] Lipid Panelon 03-08-2023 Cholesterol [Mass/Vol] 151 mg/dL Normal 140-200 [facility] Comment on above: Result Comment: Chol less than 200 mg/dl low risk Chol 201-239 mg/dl borderline risk Chol 240 mg/dl and greater high risk Performed By: #### C MP, CK, CBC, BNP, HS TROP, MG #### [facility] [address] Cholesterol in HDL [Mass/Vol] 38 mg/dL Normal 35-85 [facility] Comment on above: Result Comment: HDL CHOL ATP-III CLASSIFICATION Cardiovascular Risk HDL > or equal to 60 mg/dL LOW HDL < 40 mg/dL HIGH Performed By: #### C MP, CK, CBC, BNP, HS TROP, MG #### [address] Cholesterol.total/Cho lesterol in HDL [Mass ratio] 4.0 {ratio} Normal <5.0 [facility] Comment on above: Result Comment: PERF ORMED BY: [place] [address] PATHOLOGIST ASSOCIATE VETERINARIAN JAMAAL MO M.D. Performed By: #### C MP, CK, CBC, BNP, HS TROP, MG #### [address] LDL Cholesterol,Calculate d 100 mg/dL Normal 0-100 [facility] Comment on above: Result Comment: LDL ATP III CLASSIFICATION LDL less than 100 mg/dL Optimal LDL 100-129 mg/dL Near or above optimal LDL 130-159 mg/dL Borderline high LDL 160-189 mg/dL High LDL greater than 189 mg/dL Very high Performed By: #### C MP, CK, CBC, BNP, HS TROP, MG #### [address] Triglyceride w/Reflex 67 mg/dL Normal 0-149 [facility] Comment on above: Result Comment: TRIG ATP III CLASSIFICATION TRIG less than 150 mg/dL Normal TRIG 150-199 mg/dL Borderline high TRIG 200-500 mg/dL High TRIG greater than 500 mg/dL Very high Standard traceable to the Center for Disease Conrtrol and Prevention (CDC) test method. Performed By: #### C MP, CK, CBC, BNP, HS TROP, MG #### [address] VLDL CHOLESTEROL 13 mg/dL Normal [facility] Comment on above: Performed By: #### C MP, CK, CBC, BNP, HS TROP, MG #### [facility] [address] Lymphocytes Auto (Bld) [#/Vo l]Ordered By: Jonna Reyes on 03-08-2023 Lymphocytes (Bld) [#/Vol] N/A [facility] Lymphocytes/100 WBC Auto (Bl d)Ordered By: Jonna Reyes on 03-08-2023 Lymphocytes/100 WBC (Bld) N/A [facility] Lymphocytes/100 WBC Manual c nt (Bld)Ordered By: Jonna Reyes on 03-08-2023 Lymphocytes/100 WBC (Bld) 16 % 18-42 [facility] MCH Auto (RBC) [Entitic mass ]Ordered By: Jonna Reyes on 03-08-2023 MCH (RBC) [Entitic mass] 29.0 pg 24.7-34.3 [facility] MCHC Auto (RBC) [Mass/Vol]Or dered By: Jonna Reyes on 03-08-2023 MCHC (RBC) [Mass/Vol] 33.6 g/dL 32.0-35.0 [facility] MCV Auto (RBC) [Entitic vol] Ordered By: Jonna Reyes on 03-08-2023 MCV (RBC) [Entitic vol] 86.2 fL 80-100 [facility] Metamyelocytes/100 WBC Manua l cnt (Bld)Ordered By: Jonna Reyes on 03-08-2023 Metamyelocytes/100 WBC (Bld) 1 % 0-0 [facility] Monocytes Auto (Bld) [#/Vol] Ordered By: Jonna Reyes on 03-08-2023 Monocytes (Bld) [#/Vol] N/A [facility] Monocytes/100 WBC Auto (Bld) Ordered By: Jonna Reyes on 03-08-2023 Monocytes/100 WBC (Bld) N/A [facility] Monocytes/100 WBC Manual cnt (Bld)Ordered By: Jonna Reyes on 03-08-2023 Monocytes/100 WBC (Bld) 3 % 2-11 [facility] Neutrophils Auto (Bld) [#/Vo l]Ordered By: Jonna Reyes on 05-11-2023 Neutrophils (Bld) [#/Vol] N/A [facility] Neutrophils/100 WBC Auto (Bl d)Ordered By: Jonna Reyes on 03-08-2023 Neutrophils/100 WBC (Bld) N/A [facility] No Panel InformationOrdered By: Jonna Reyes on 03-08-2023 Estimated GFR (CKD-EPI) 48.665 mL/Min [facility] Creatinine Clearance (Chem N/A [facility] No Panel Informationon 03-08 32.0\S\32.0 Normal 25.1-36.5 [facility] 250 DO Work Phone: Comment on above: PERFORMED BY:[address] [address] [address] [place], [place] [phone] MEDICAL DIRECTORJAMAAL MO M.D. 1.1\S\1.1 [facility] Work Phone: Comment on above: INR Therapeutic Rang e A) Pre- and Peroperative OAT started two weeks before surgery. NOT HIP SURGERY: 1.5 - 2.5 HIP SURGERY: 2 - 3 B) Primary and secondary prevention of venous THROMBOSIS: 2 - 3 C) Active venous thrombosis, pulmonary embolism and prevention of recurrent venous thrombosis: 2 - 3 D) Prevention of arterial thromboembolism including patients with mechanical heart valves: 3 - 4.5 12.2\S\12.2 Normal 9.0-12.9 [facility] DO Work Phone: 9.0\S\9.0 Normal 6.3-10.7 [facility] Work Phone: 33.1\S\33.1 above high threshold 21.0-31.0 [facility] [facility] 250 DO Work Phone: 104\S\104 Normal 98-107 [facility] DO Work Phone: 5.1\S\5.1 Normal 3.5-5.1 [facility] [facility] 250 DO Work Phone: 141\S\141 Normal 136-145 [facility] Lu melton 250 DO Work Phone: [phone] 21\S\21 Normal 7-25 [facility] Lu melton 250 DO Work Phone: [phone] 48.665\S\48.665 Normal [facility] Lu melton 250 DO Work Phone: [phone] 1.14\S\1.14 Normal 0.60-1.20 [facility] Lu melton 250 DO Work Phone: [phone] 4.0\S\4.0 Normal <5.0 [facility] Lu melton 250 DO Work Phone: Comment on above: PERFORMED BY:[address] [address] [address] [place], [place] [phone] MEDICAL DIRECTORJAMAAL MO M.D. 13\S\13 Normal [facility] Lu mel[place] 250 DO Work Phone: 67\S\67 Normal 0-149 [facility] Lu melton 250 DO Work Phone: Comment on above: TRIG ATP III CLASSIF ICATION TRIG less than 150 mg/dL Normal TRIG 150-199 mg/dL Borderline high TRIG 200-500 mg/dL High TRIG greater than 500 mg/dL Very high Standard traceable to the Center for Disease Conrtrol and Prevention (CDC) test method. 38\S\38 Normal 35-85 [facility] Lu mel[place] 250 DO Work Phone: Comment on above: HDL CHOL ATP-III CLA SSIFICATION Cardiovascular Risk HDL > or equal to 60 mg/dL LOW HDL < 40 mg/dL HIGH 74\S\74 above high threshold 50-70 [facility] Lu melton 250 DO Work Phone: 276\S\276 Normal 150-450 [facility] Lu melton 250 DO Work Phone: 14.1\S\14.1 Normal 11.9-15.3 [facility] [facility] 250 DO Work Phone: [phone] 33.6\S\33.6 Normal 32.0-35.0 [facility] [facility] 250 DO Work Phone: 29.0\S\29.0 Normal 24.7-34.3 [facility] [facility] 250 DO Work Phone: 1\S\1 above high threshold 0-0 [facility] [facility] 250 DO Work Phone: 0\S\0 Normal 0-2 [facility] [facility] 250 DO Work Phone: 2\S\2 Normal 1-3 [facility] [facility] 250 DO Work Phone: 3\S\3 Normal 2-11 [facility] [facility] 250 DO Work Phone: 16\S\16 below low threshold 18-42 [facility] [facility] 250 DO Work Phone: [phone] 4\S\4 Normal 0-5 [facility] [facility] 250 DO Work Phone: Slight Normal [facility] [facility] 250 DO Work Phone: [phone] Comment on above: PERFORMED BY:[address] [place] [address] [address] [place], [place] [phone] MEDICAL DIRECTORJAMAAL MO M.D. Normal Normal Normal [facility] [facility] 250 DO Work Phone: [phone] 86.2\S\86.2 Normal 80-100 [facility] [facility] 250 DO Work Phone: 30.7\S\30.7 below low threshold 34.0-46.4 [facility] 250 DO Work Phone: 10.3\S\10.3 below low threshold 11.8-15.4 [facility] [facility] 250 DO Work Phone: 3.56\S\3.56 below low threshold 3.60[facility].00 [facility] Work Phone: [phone] 8.6\S\8.6 Normal 3.8-11.6 [facility] DO Work Phone: 6.2\S\6.2 Normal 3.8-11.6 [facility] DO Work Phone: Nucleated erythrocytes [Pres ence] in Blood by Automated countOrdered By: Jonna Reyes on 03-08-2023 Nucleated RBC Auto Ql (Bld) N/A [facility] Ovalocyte detectionOrdered B y: Jonna Reyes on 03-08-2023 Ovalocytes LM Ql (Bld) Slight [facility] Platelet adequacy [Presence] in Blood by Light microscopyOrdered By: Jonna Reyes on 03-08-2023 Platelets LM Ql (Bld) Normal Normal [facility] Platelet mean volume Auto (B ld) [Entitic vol]Ordered By: Jonna Reyes on 03-08-2023 Platelet mean volume (Bld) [Entitic vol] 9.0 fL 6.3-10.7 [facility] Platelet morphology finding [Identifier] in BloodOrdered By: Jonna Reyes on 03-08-2023 Platelet morphology finding Nom (Bld) N/A [facility] Platelet poor plasma interna tional normalized ratio (INR) by coagulation assay (relatOrdered By: Jonna Reyes on 03-08-2023 INR Coag (PPP) [Relative time] 1.1 {INR} [facility] Comment on above: INR Therapeutic Rang e A) Pre- and Peroperative OAT started two weeks before surgery. NOT HIP SURGERY: 1.5 - 2.5 HIP SURGERY: 2 - 3B) Primary and secondary prevention of venous THROMBOSIS: 2 - 3C) Active venous thrombosis, pulmonary embolismand prevention of recurrent venous thrombosis: 2 - 3D) Prevention of arterial thromboembolismincluding patients with mechanical heart valves: 3 - 4.5 Platelets Auto (Bld) [#/Vol] Ordered By: Jonna Reyes on 03-08-2023 Platelets (Bld) [#/Vol] 276 10*3/uL 150-450 [facility] Platelets Large [Presence] i n Blood by Light microscopyOrdered By: Jonna Reyes on 03-08-2023 Platelets Large LM Ql (Bld) Slight [facility] Poikilocytosis [Presence] in Blood by Light microscopyOrdered By: Jonna Reyes on 03-08-2023 Poikilocytosis LM Ql (Bld) Slight [facility] Potassium [Moles/volume] in Serum or PlasmaOrdered By: Jonna Reyes on 03-08-2023 Potassium [Moles/Vol] 5.1 mmol/L 3.5-5.1 [facility] RBC Auto (Bld) [#/Vol]Ordere d By: Jonna Reyes on 03-08-2023 RBC (Bld) [#/Vol] 3.56 10*6/uL 3.60-5.00 [facility] RBC morphologyOrdered By: Jonna Reyes on 03-08-2023 RBC morphology finding Nom (Bld) N/A [facility] Segmented neutrophils/100 WB C Manual cnt (Bld)Ordered By: Jonna Reyes on 03-08-2023 Segmented neutrophils/100 WBC (Bld) 74 % 50-70 [facility] Serum or plasma anion gap de terminationOrdered By: Jonna Reyes on 03-08-2023 Anion gap [Moles/Vol] 9.0 mmol/L 6.0-15.0 [facility] Serum or plasma high density lipoprotein (HDL) cholesterol measurementOrdered By: Jonna Reeys on 03-08-2023 Cholesterol in HDL [Mass/Vol] 38 mg/dL 35-85 [facility] Comment on above: HDL CHOL ATP-III CLA SSIFICATION Cardiovascular RiskHDL > or equal to 60 mg/dL LOWHDL < 40 mg/dL HIGH Serum or plasma total choles terol/high density lipoprotein (HDL) cholesterol mass ratOrdered By: Jonna Reyes on 03-08-2023 Cholesterol.total/Cho lesterol in HDL [Mass ratio] 4.0 {ratio} <5.0 [facility] Sodium [Moles/volume] in Ser um or PlasmaOrdered By: Jonna Reyes on 03-08-2023 Sodium [Moles/Vol] 141 mmol/L 136-145 [facility] Triglyceride [Mass/volume] i n Serum or PlasmaOrdered By: Jonna Reyes on 03-08-2023 Triglyceride [Mass/Vol] 67 mg/dL 0-149 [facility] Comment on above: TRIG ATP III CLASSIF ICATIONTRIG less than 150 mg/dL NormalTRIG 150-199 mg/dL Borderline highTRIG 200-500 mg/dL High TRIG greater than 500 mg/dL Very highStandard traceable to the Center for Disease Conrtrol and Prevention (CDC) test method. Urea nitrogen [Mass/volume] in Serum or PlasmaOrdered By: Jonna Reyes on 03-08-2023 Urea nitrogen [Mass/Vol] 21 mg/dL 7-25 [facility] WBC Auto (Bld) [#/Vol]Ordere d By: Jonna Reyes on 03-08-2023 WBC (Bld) [#/Vol] 8.6 10*3/uL 3.8-11.6 [facility] Office Visit (Cardiology)on 03-07-2023 Follow-up visit Diagnoses/Problems Assessed Class 1 obesity with body mass index (BMI) of 33.0 to 33.9 in adult (278.00,V85.33) (E66.9,Z68.33) Angina, class III (413.9) (I20.9) SOB (shortness of breath) on exertion (786.05) (R06.02) Hypertension (401.9) (I10) Abnormal stress test (794.39) (R94.39) Former smoker (V15.82) (Z87.891) 1998 Orders Angina, class III Start: Nitroglycerin 0.2 MG/HR Transdermal Patch 24 Hour; APPLY PATCH FOR 12 TO 14 HOURS DAILY, THEN REMOVE Cardiac Catherization; Status:Active - Retrospective Authorization; Requested for:[id number]; Angina, class III, Hyperlipemia Start: Aspirin 81 MG Oral Tablet Delayed Release; TAKE 1 TABLET DAILY Class 1 obesity with body mass index (BMI) of 33.0 to 33.9 in adult Healthy Weight Tips; Status:Complete - Retrospective Authorization; Done: 07Mar2023 Some eating tips that can help you lose weight.; Status:Complete - Retrospective Authorization; Done: 07Mar2023 Health Maintenance, Patient new to provider IO EKG Electrocardiogram- 12 Lead; Status:Complete; Done: 07Mar2023 SocHx: Former smoker Tobacco Use Screening; Status:Complete; Done: 07Mar2023 Tobacco Use Screening; Status:Complete; Done: 07Mar2023 Patient Instructions Please bring all medicines, vitamins, and herbal supplements with you when you come to the office. Prescriptions will not be filled unless you are compliant with your follow up appointments or have a follow up appointment scheduled as per instruction of your physician. Refills should be requested at the time of your visit. Follow up after testing completed Chief Complaint LASHAUN JOAQUIN is being seen for a consultation for abnormal test(s) results. 82-year-old female seen in cardiology consultation at the request of Dr. Natalio hathaway for recent episode of respiratory distress, what sounds like congestive heart failure associated with accelerated hypertension, was admitted to [facility], diuresed approximately 14 pounds with diuretics. She followed up with stress imaging that revealed preserved left ventricular function, ejection fraction of 73%, and anterior perfusion defect with redistribution suggestive of ischemia. Echocardiogram confirmed normal left ventricular function and no significant valvular abnormality per outside echo report. Chest x-ray revealed possible pulmonary edema versus multifocal pneumonia, second chest x-ray 1 day later revealed improved opacities. Today's ECG reveals sinus bradycardia at a rate of 45 and is otherwise normal. Patient has no prior history of myocardial infarction, revascularization, stroke, thromboembolic or bleeding disorder She is treated for hypertension She is a former smoker, nondiabetic Risks, benefits, alternatives and informed decision-making process performed with patient and family for over 30 minutes this morning in regards to consideration for further imaging by means of either cardiac CTA versus cardiac catheterization with possible revascularization. We did describe anatomy and the possibility of LAD disease. After conferring with family members, patient decided to proceed with heart catheterization. We will continue with aspirin but escalated to 81 mg daily and proceed with heart cath this Sunday Surgical History Problems History of Complete colonoscopy 2012 History of Hysterectomy Current Meds Medication NameInstruction ALPRAZolam 0.25 MG Oral Tablet DisintegratingPLACE 1 TABLET by mouth as needed Carvedilol 3.125 MG Oral TabletTake 1 tablet twice daily Furosemide 20 MG Oral TabletTAKE 1 TABLET BY MOUTH DAILY Gabapentin 100 MG Oral CapsuleTAKE 1 CAPSULE TWICE DAILY. Irbesartan 150 MG Oral TabletTAKE 1 TABLET BY MOUTH EVERY DAY Pantoprazole Sodium 40 MG Oral PacketTake 1 tablet by mouth on a empty stomach Potassium Chloride Iram ER 10 MEQ Oral Tablet Extended ReleaseTAKE 1 TABLET DAILY. Pravastatin Sodium 40 MG Oral TabletTAKE 1 TABLET AT BEDTIME. Temazepam 15 MG Oral CapsuleTAKE 1 CAPSULE AT BEDTIME NEEDED. Allergies Medication No Known Drug Allergies Recorded By: Cat Rogel; 03/07/2023 10:01:58 AM Social History Problems Daily caffeine consumption 2 coffees in am and 1 coffee at hs Former smoker (V15.82) (Z87.023) 1997 No alcohol use No illicit drug use Review of Systems Constitutional: not feeling tired. Eyes: no eyesight problems. ENT: no hearing loss and no nosebleeds. Cardiovascular: chest pain and shortness of breath, but no intermittent leg claudication and as noted in HPI. Respiratory: shortness of breath, but no chronic cough. Gastrointestinal: no change in bowel habits and no blood in stools. Genitourinary: no urinary frequency. Skin: no skin rashes. Neurological: no seizures and no frequent falls. Psychiatric: no depression and not suicidal. All other systems have been reviewed and are negative for complaint. Vitals Vital Signs Recorded: [id number] 10:14AMRecorded: [id number] 10:04AM [id number], RUE, [id number] (more content not included)... Normal [facility] Tobacco Screening.on 023 Adult depression screening assessment No [facility] [facility] 250 DO Work Phone: Fall risk assessment a) No falls within the last year [facility] [facility] 250 DO Work Phone: Tobacco use status [facility] b) No [facility] [facility] 250 DO Work Phone: CBC AUTO DIFFon 03-01-2023 BASO # 0.0 103/ul Normal 0.0-0.1 [facility] Comment on above: Performed By: #### C BC #### [facility] [address] [address] [address] Jose David Shanks Basophils/100 WBC (Bld) 0.5 % Normal 0.2-2.0 [facility] Comment on above: Performed By: #### C BC #### [facility] [address] [place] [address] Dr. Jose David Shanks EO # 0.1 103/ul Normal 0.0-0.7 [facility] Comment on above: Performed By: #### C BC #### [facility] [address] [place] [address] Dr. Jose David Shanks Eosinophils/100 WBC (Bld) 1.2 % Normal 0.9-7.0 [facility] Comment on above: Performed By: #### C BC #### [facility] [address] [place] [address] Dr. Jose David Shanks Erythrocyte distribution width (RBC) [Ratio] 13.2 % Normal 11.0-15.0 [facility] Comment on above: Performed By: #### C BC #### [facility] [address] [place] [address] Dr. Jose David Shanks Hematocrit (Bld) [Volume fraction] 33.9 % Critically low 36.0-48.0 [facility] Comment on above: Performed By: #### C BC #### [facility] [address] [place] [address] Dr. Jose David Shanks Hemoglobin (Bld) [Mass/Vol] 11.0 g/dL Critically low 12.0-16.0 [facility] Comment on above: Performed By: #### C BC #### [facility] [address] [place] [address] Dr. Jose David Shanks IG # 0.03 10e3/ul Normal 0.00-0.03 [facility] Comment on above: Performed By: #### C BC #### [facility] [address] [place] [address] Dr. Jose David Shanks IG % 0.5 % Normal 0.0-0.5 [facility] Comment on above: Performed By: #### C BC #### [facility] [address] [place] [address] Dr. Jose David Shanks LYMPH # 0.8 103/ul Critically low 1.2-3.8 [facility] Comment on above: Performed By: #### C BC #### [facility] [address] [place] [address] Dr. Jose David Shanks Lymphocytes/100 WBC (Bld) 13.7 % Critically low 20.5-60.0 [facility] Comment on above: Performed By: #### C BC #### [facility] [address] [place] [address] Dr. Jose David Shanks MANUAL DIFF REQ NO Normal [facility] Comment on above: Performed By: #### C BC #### [facility] [address] [place] [address] Dr. Jose David Shanks MCH (RBC) [Entitic mass] 28.9 pg Normal 26.7-34.0 [facility] Comment on above: Performed By: #### C BC #### [facility] [address] [place] [address] Dr. Jose David Shanks MCHC (RBC) [Mass/Vol] 32.4 g/dL Normal 29.9-35.2 [facility] Comment on above: Performed By: #### C BC #### [facility] [address] [place] [address] Dr. Jose David Shanks MCV (RBC) [Entitic vol] 89.0 fL Normal 81.0-99.0 [facility] Comment on above: Performed By: #### C BC #### [facility] [address] [place] [address] Dr. Jose David Shanks MONO # 0.5 103/ul Normal 0.3-0.8 [facility] Comment on above: Performed By: #### C BC #### [facility] [address] [place] [address] Dr. Jose David Shanks Monocytes/100 WBC (Bld) 8.2 % Normal 1.7-12.0 [facility] Comment on above: Performed By: #### C BC #### [facility] [address] [place] [address] Dr. Jose David Shanks NEUT # 4.3 103/ul Normal 1.4-6.5 [facility] Comment on above: Performed By: #### C BC #### [facility] [address] [address] [address] Jose David Shanks Neutrophils/100 WBC (Bld) 75.9 % Critically high 43.0-75.0 [facility] Comment on above: Performed By: #### C BC #### [facility] [address] [place] [address] Dr. Jose David Shanks Platelet mean volume (Bld) [Entitic vol] 10.1 fL Normal 9.5-13.5 [facility] Comment on above: Performed By: #### C BC #### [facility] [address] [place] [address] Dr. Jose David Shanks PLT 279 103/ul Normal 150-450 [facility] Comment on above: Performed By: #### C BC #### [facility] [address] [place] [address] Dr. Jose David Shanks RBC 3.81 106/ul Critically low 4.20-5.[address] [facility] Comment on above: Performed By: #### C BC #### [facility] [address] [place] [address] Dr. Jose David Shanks WBC 5.7 103/ul Normal 4.0-11.0 [facility] Comment on above: Performed By: #### C BC #### [facility] [address] [place] [address] Dr. Jose David Shanks FERRITINon 03-01-2023 Ferritin [Mass/Vol] 180.0 ng/mL Normal 8.0-252.0 [facility] Comment on above: Performed By: #### C BC #### [facility] [address] [place] [address] Dr. Jose David Shanks IRON AND TIBCon 03-01-2023 % SATURATION 23.6 % Normal [facility] Comment on above: Performed By: #### C BC #### [facility] [address] [place] [address] Dr. Jose David Shanks Iron [Mass/Vol] 61.0 ug/dL Normal 50.0-170.0 [facility] Comment on above: Performed By: #### C BC #### [facility] [address] [place], [place] [address] Dr. Jose David Shanks TIBC DIRECT 258.0 ug/dL Normal 250.0-450.0 [facility] Comment on above: Performed By: #### C BC #### [facility] [address] [place], [place] [address] Dr. Jose David Shanks NM STRESS/REST MULTIon 03-01 NM STRESS/REST MULTI Patient: GERMANIA JOAQUIN Exam Date: 03/01/2023 : 1940 Gender:F Ordering : DR NATHAN HATHAWAY D.O. Admission #: [id number] Family : Order #: [id number] CLICK HERE TO VIEW EXAM RADIOLOGY REPORT PROCEDURE: RADIONUCLIDE IMAGING STRESS/REST MULTI COMPARISON: None. INDICATIONS: Precordial pain TECHNIQUE: Exam Description: Stress/Rest one day protocol gated SPECT Rest Imagin.6 mCi Tc-99m Cardiolite IV on 03/01/2023 Stress Imaging 30.2 mCi Tc-99m Cardiolite IV on 03/01/2023 Exercise Protocol: 0.4 mg Lexiscan given IV Heart Rate (bpm): Rest: 50 Max: 75 PMHR: 53 Blood Pressure: Rest: 164/90 Max: 170/78 Symptoms: Rest and peak stress ECG findings were abnormal and the exercise portion of the study was abnormal per attending physician Dr. Natalio Hathaway due to EKG changes. For more details please see separate cardiac stress test report. FINDINGS: QUALITY OF STUDY: PERFUSION DEFECT: LOCATION: Mid-anterior. Apical anterior. [place]. SIZE: Medium (3-4 segments). SEVERITY: Moderate. TYPE: Persistent. WALL MOTION: Normal. LV SIZE: Normal. 67 mL. TID / TCD: None; 0.8 LVEF: Normal. Calculated EF 73%. SUMMARY: Myocardial perfusion imaging study has ABNORMAL findings. CONCLUSION: 1. Moderate size moderate severity defect in the anterior wall extending into the apex without definite redistribution to suggest reversibility 2. Abnormal exercise test secondary to EKG changes Dictated by: William Patel MD on 03/01/2023 at 14:49 Approved by: William Patel MD on 03/01/2023 at 14:54 Normal [facility] PROF CHEM 8 (BAS METB)on Anion gap [Moles/Vol] 8.8 mmol/L Normal [facility] Comment on above: Performed By: #### L ACT #### [facility] [address] [address] [address] Jose David Shanks Calcium [Mass/Vol] 9.0 mg/dL Normal 8.5-10.1 [facility] Comment on above: Performed By: #### L ACT #### [facility] [address] [address] [address] Jose David Shanks Chloride [Moles/Vol] 106 mmol/L Normal 98-107 [facility] Comment on above: Performed By: #### L ACT #### [facility] [address] [address] [address] Jose David Shanks CO2 [Moles/Vol] 31.0 mmol/L Normal 21.0-32.0 [facility] Comment on above: Performed By: #### L ACT #### [facility] [address] [address] [address] Jose David Shanks Creatinine [Mass/Vol] 1.18 mg/dL Critically high 0.55-1.02 [facility] Comment on above: Performed By: #### L ACT #### [facility] [address] [address] [address] Jose David Shanks EGFR-AF BAHAMIAN 53 mL/min/1.73m2 Critically low >=60 [facility] Comment on above: Performed By: #### L ACT #### [facility] [address] [address] [address] Jose David Shanks EGFR-NON AF BAHAMIAN 44 mL/min/1.73m2 Critically low >=60 [facility] Comment on above: Performed By: #### L ACT #### [facility] [address] [address] [address] Jose David Shanks Glucose [Mass/Vol] 98 mg/dL Normal 74-106 [facility] Comment on above: Performed By: #### L ACT #### [facility] [address] [address] [address] Jose David Shanks Potassium [Moles/Vol] 4.8 mmol/L Normal 3.5-5.1 [facility] Comment on above: Performed By: #### L ACT #### [facility] [address] [place] [address] Dr. Jose David Shanks Sodium [Moles/Vol] 141 mmol/L Normal 136-145 [facility] Comment on above: Performed By: #### L ACT #### [facility] [address] [place] [address] Dr. Jose David Shanks Urea nitrogen [Mass/Vol] 16.0 mg/dL Normal 7.0-18.0 [facility] Comment on above: Performed By: #### L ACT #### [facility] [address] [place] [address] Dr. Jose David Shanks Urea nitrogen/Creatinine [Mass ratio] 13.6 mg/mg Normal [facility] Comment on above: Performed By: #### L ACT #### [facility] [address] [place] [address] Dr. Jose David Shanks RETICULOCYTEon 03-01-2023 RETIC 1.51 % Normal 0.60-3.10 [facility] Comment on above: Performed By: #### C BC #### [facility] [address] [place] [address] Dr. Jose David Shanks VIT B12 AND FOLATEon 023 Cobalamin (Vitamin B12) [Mass/Vol] 1406.0 pg/mL Critically high 193.0-986.0 [facility] Comment on above: Performed By: #### C BC #### [facility] [address] [place] [address] Dr. Jose David Shanks FOLATE 19.00 ng/mL Normal 8.60-58.90 [facility] Comment on above: Performed By: #### C BC #### [facility] [address] [place] [address] Dr. Jose David Shanks CBC AUTO DIFFon 02-09-2023 BASO # 0.0 103/ul Normal 0.0-0.1 [facility] Comment on above: Performed By: #### C BC #### [facility] [address] [place] [address] Dr. Jose David Shanks Basophils/100 WBC (Bld) 0.6 % Normal 0.2-2.0 [facility] Comment on above: Performed By: #### C BC #### [facility] [address] [place] [address] Dr. Jose David Shanks EO # 0.1 103/ul Normal 0.0-0.7 [facility] Comment on above: Performed By: #### C BC #### [facility] [address] [place] [address] Dr. Jose David Shanks Eosinophils/100 WBC (Bld) 2.7 % Normal 0.9-7.0 [facility] Comment on above: Performed By: #### C BC #### [facility] [address] [place] [address] Dr. Jose David Shanks Erythrocyte distribution width (RBC) [Ratio] 13.5 % Normal 11.0-15.0 [facility] Comment on above: Performed By: #### C BC #### [facility] [address] [place] [address] Dr. Jose David Shanks Hematocrit (Bld) [Volume fraction] 30.0 % Critically low 36.0-48.0 [facility] Comment on above: Performed By: #### C BC #### [facility] [address] [place] [address] Dr. Jose David Shanks Hemoglobin (Bld) [Mass/Vol] 10.0 g/dL Critically low 12.0-16.0 [facility] Comment on above: Performed By: #### C BC #### [facility] [address] [place] [address] Dr. Jose David Shanks IG # 0.02 10e3/ul Normal 0.00-0.03 [facility] Comment on above: Performed By: #### C BC #### [facility] [address] [place] [address] Dr. Jose David Shanks IG % 0.4 % Normal 0.0-0.5 [facility] Comment on above: Performed By: #### C BC #### [facility] [address] [address] [address] Jose David Shanks LYMPH # 0.9 103/ul Critically low 1.2-3.8 [facility] Comment on above: Performed By: #### C BC #### [facility] [address] [address] [address] Jose David Shanks Lymphocytes/100 WBC (Bld) 19.3 % Critically low 20.5-60.0 [facility] Comment on above: Performed By: #### C BC #### [facility] [address] [place] [address] Dr. Jose David Shanks MANUAL DIFF REQ NO Normal [facility] Comment on above: Performed By: #### C BC #### [facility] [address] [place] [address] Dr. Jose David Shanks MCH (RBC) [Entitic mass] 29.3 pg Normal 26.7-34.0 [facility] Comment on above: Performed By: #### C BC #### [facility] [address] [place] [address] Dr. Jose David Shanks MCHC (RBC) [Mass/Vol] 33.3 g/dL Normal 29.9-35.2 [facility] Comment on above: Performed By: #### C BC #### [facility] [address] [place] [address] Dr. Jose David Shanks MCV (RBC) [Entitic vol] 88.0 fL Normal 81.0-99.0 [facility] Comment on above: Performed By: #### C BC #### [facility] [address] [place] [address] Dr. Jose David Shanks MONO # 0.4 103/ul Normal 0.3-0.8 [facility] Comment on above: Performed By: #### C BC #### [facility] [address] [place] [address] Dr. Jose David Shanks Monocytes/100 WBC (Bld) 8.3 % Normal 1.7-12.0 [facility] Comment on above: Performed By: #### C BC #### [facility] [address] [address] [address] Jose David Shanks NEUT # 3.3 103/ul Normal 1.4-6.5 [facility] Comment on above: Performed By: #### C BC #### [facility] [address] [address] [address] Jose David Shanks Neutrophils/100 WBC (Bld) 68.7 % Normal 43.0-75.0 [facility] Comment on above: Performed By: #### C BC #### [facility] [address] [address] [address] Jose David Shanks Platelet mean volume (Bld) [Entitic vol] 9.9 fL Normal 9.5-13.5 [facility] Comment on above: Performed By: #### C BC #### [facility] [address] [place] [address] Dr. Jose David Shanks PLT 259 103/ul Normal 150-450 [facility] Comment on above: Performed By: #### C BC #### [facility] [address] [place] [address] Dr. Jose David Shanks RBC 3.41 106/ul Critically low 4.20-5.[address] [facility] Comment on above: Performed By: #### C BC #### [facility] [address] [place] [address] Dr. Jose David Shanks WBC 4.8 103/ul Normal 4.0-11.0 [facility] Comment on above: Performed By: #### C BC #### [facility] [address] [place] [address] Dr. Jose David Shanks PROF CHEM 8 (BAS METB)on Anion gap [Moles/Vol] 11.7 mmol/L Normal [facility] Comment on above: Performed By: #### L ACT #### [facility] [address] [place] [address] Dr. Jose David Shanks Calcium [Mass/Vol] 8.6 mg/dL Normal 8.5-10.1 [facility] Comment on above: Performed By: #### L ACT #### [facility] [address] [address] [address] Jose David Shanks Chloride [Moles/Vol] 107 mmol/L Normal 98-107 [facility] Comment on above: Performed By: #### L ACT #### [facility] [address] [address] [address] Jose David Shanks CO2 [Moles/Vol] 30.9 mmol/L Normal 21.0-32.0 [facility] Comment on above: Performed By: #### L ACT #### [facility] [address] [address] [address] Jose David Shanks Creatinine [Mass/Vol] 1.04 mg/dL Critically high 0.55-1.02 [facility] Comment on above: Performed By: #### L ACT #### [facility] [address] [address] [address] Jose David Shanks EGFR-AF BAHAMIAN >60 Normal >=60 [facility] Comment on above: Performed By: #### L ACT #### [facility] [address] [address] [address] Jose David Shanks EGFR-NON AF BAHAMIAN 51 mL/min/1.73m2 Critically low >=60 [facility] Comment on above: Performed By: #### L ACT #### [facility] [address] [address] [address] Jose David Shanks Glucose [Mass/Vol] 97 mg/dL Normal 74-106 [facility] Comment on above: Performed By: #### L ACT #### [facility] [address] [address] [address] Jose David Shanks Potassium [Moles/Vol] 3.6 mmol/L Normal 3.5-5.1 [facility] Comment on above: Performed By: #### L ACT #### [facility] [address] [address] [address] Jose David Shanks Sodium [Moles/Vol] 146 mmol/L Critically high 136-145 [facility] Comment on above: Performed By: #### L ACT #### [facility] [address] [address] [address] Jos eDavid Shanks Urea nitrogen [Mass/Vol] 17.0 mg/dL Normal 7.0-18.0 [facility] Comment on above: Performed By: #### L ACT #### [facility] [address] [place] [address] Dr. Jose David Shanks Urea nitrogen/Creatinine [Mass ratio] 16.3 mg/mg Normal [facility] Comment on above: Performed By: #### L ACT #### [facility] [address] [place] [address] Dr. Jose David Shanks XR CHEST 2 Von 02-09-2023 XR CHEST 2 V HISTORY: 82-year-fem matthew referred for shortness of breath. COMPARISON: 02-08-2023. FINDINGS: PA and lateral radiographs of the chest were obtained. There are hazy opacities at the lung bases. Overall, the opacities have improved when compared to prior exam on 02-08-2023. No pneumothorax. No large pleural effusion. Cardiomediastinal silhouette is within normal limits. Atherosclerotic calcifications in the aortic arch. Degenerative changes to the shoulders and spine. Right apex curvature to the spine. IMPRESSION: Mild hazy opacities at the lung bases. Overall, the opacities have improved when compared to prior exam on 02-08-2023. Findings may represent mild pulmonary edema or infectious process. Electronically authenticated by: EDWARD MENA Date: 2023-02-09 15:56 Normal [facility] BNPon 02-08-2023 Natriuretic peptide B (Bld) [Mass/Vol] 1007.0 pg/mL Normal <=1,800.0 [facility] Comment on above: Performed By: #### B HAT BRIM AND CROWN LAMINATING OPERATOR #### [facility] [address] [place] [address] Dr. Jose David Shanks CARDIAC TALI 3-6on 3 CK [Catalytic activity/Vol] 29 U/L Normal 26-192 [facility] Comment on above: Performed By: #### C MREP #### [facility] [address] [place] [address] Dr. Jose David Shanks CK.MB [Mass/Vol] 0.90 ng/mL Normal <=3.60 [facility] Comment on above: Performed By: #### C MREP #### [facility] [address] [address] [address] Jose David Shanks HSTROP 69.4 pg/mL Critically high 4.0-51.[address] [facility] Comment on above: Result Comment: CUT- OFF POINTS HAVE BEEN ESTABLISHED BASED ON THE FOURTH UNIVERSAL DEFINITIONS OF MYOCARDIAL INFARCTION. THE UPPER REFERENCE LIMIT (URL) OF TROPONIN, DEFINED THE 99TH PERCENTILE OF cTnI DISTRIBUTION IN A REFERENCE POPULATION, HAS BEEN CONFIRMED THE DECISION THRESHOLD FOR RI DIAGNOSIS. Performed By: #### C MREP #### [facility] [address] [address] [address] Jose David Shanks CK [Catalytic activity/Vol] 23 U/L Critically low 26-192 [facility] Comment on above: Performed By: #### C MREP #### [facility] [address] [address] [address] Jose David Shanks CK.MB [Mass/Vol] ng/mL Normal <=3.60 [facility] Comment on above: Performed By: #### C MREP #### [facility] [address] [address] [address] Jose David Shanks HSTROP 72.0 pg/mL Critically high 4.0-51.[address] [facility] Comment on above: Result Comment: CUT- OFF POINTS HAVE BEEN ESTABLISHED BASED ON THE FOURTH UNIVERSAL DEFINITIONS OF MYOCARDIAL INFARCTION. THE UPPER REFERENCE LIMIT (URL) OF TROPONIN, DEFINED THE 99TH PERCENTILE OF cTnI DISTRIBUTION IN A REFERENCE POPULATION, HAS BEEN CONFIRMED THE DECISION THRESHOLD FOR RI DIAGNOSIS. Performed By: #### C MREP #### [facility] [address] [address] [address] Jose David Shanks CARDIAC TALI ADMITon 023 CK [Catalytic activity/Vol] 31 U/L Normal 26-192 [facility] Comment on above: Performed By: #### C MADM, BMP #### [facility] [address] [address] [address] Jose David Shanks CK.MB [Mass/Vol] ng/mL Normal <=3.60 [facility] Comment on above: Performed By: #### C MADM, BMP #### [facility] [address] [place] [address] Dr. Jose David Shanks HSTROP 26.3 pg/mL Normal 4.0-51.3 [facility] Comment on above: Result Comment: CUT- OFF POINTS HAVE BEEN ESTABLISHED BASED ON THE FOURTH UNIVERSAL DEFINITIONS OF MYOCARDIAL INFARCTION. THE UPPER REFERENCE LIMIT (URL) OF TROPONIN, DEFINED THE 99TH PERCENTILE OF cTnI DISTRIBUTION IN A REFERENCE POPULATION, HAS BEEN CONFIRMED THE DECISION THRESHOLD FOR RI DIAGNOSIS. Performed By: #### C ELZA, BMP #### [facility] [address] [place] [address] Dr. Jose David Shanks MAMI 52 ng/mL Normal 9-82 [facility] Comment on above: Performed By: #### C ELZA, BMP #### [facility] [address] [place] [address] Dr. Jose David Shanks CBC AUTO DIFFon 02-08-2023 BASO # 0.0 103/ul Normal 0.0-0.1 [facility] Comment on above: Performed By: #### L ACT #### [facility] [address] [place] [address] Dr. Jose David Shanks Basophils/100 WBC (Bld) 0.3 % Normal 0.2-2.0 [facility] Comment on above: Performed By: #### L ACT #### [facility] [address] [place] [address] Dr. Jose David Shanks EO # 0.1 103/ul Normal 0.0-0.7 [facility] Comment on above: Performed By: #### L ACT #### [facility] [address] [place] [address] Dr. Jose David Shanks Eosinophils/100 WBC (Bld) 0.5 % Critically low 0.9-7.0 [facility] Comment on above: Performed By: #### L ACT #### [facility] [address] [place] [address] Dr. Jose David Shanks Erythrocyte distribution width (RBC) [Ratio] 13.4 % Normal 11.0-15.0 [facility] Comment on above: Performed By: #### L ACT #### [facility] [address] [address] [address] Jose David Shanks Hematocrit (Bld) [Volume fraction] 33.0 % Critically low 36.0-48.0 [facility] Comment on above: Performed By: #### L ACT #### [facility] [address] [place] [address] Dr. Jose David Shanks Hemoglobin (Bld) [Mass/Vol] 11.1 g/dL Critically low 12.0-16.0 [facility] Comment on above: Performed By: #### L ACT #### [facility] [address] [address] [address] Jose David Shanks IG # 0.06 10e3/ul Critically high 0.00-0.03 [facility] Comment on above: Performed By: #### L ACT #### [facility] [address] [place] [address] Dr. Jose David Shanks IG % 0.5 % Normal 0.0-0.5 [facility] Comment on above: Performed By: #### L ACT #### [facility] [address] [place] [address] Dr. Jose David Shanks LYMPH # 0.8 103/ul Critically low 1.2-3.8 [facility] Comment on above: Performed By: #### L ACT #### [facility] [address] [place] [address] Dr. Jose David Shanks Lymphocytes/100 WBC (Bld) 7.0 % Critically low 20.5-60.0 [facility] Comment on above: Performed By: #### L ACT #### [facility] [address] [place] [address] Dr. Jose David Shanks MANUAL DIFF REQ NO Normal [facility] Comment on above: Performed By: #### L ACT #### [facility] [address] [place] [address] Dr. Jose David Shanks MCH (RBC) [Entitic mass] 29.6 pg Normal 26.7-34.0 [facility] Comment on above: Performed By: #### L ACT #### [facility] [address] [place] [address] Dr. Jose David Shanks MCHC (RBC) [Mass/Vol] 33.6 g/dL Normal 29.9-35.2 [facility] Comment on above: Performed By: #### L ACT #### [facility] [address] [address] [address] Jose David Shanks MCV (RBC) [Entitic vol] 88.0 fL Normal 81.0-99.0 [facility] Comment on above: Performed By: #### L ACT #### [facility] [address] [address] [address] Jose David Shanks MONO # 0.6 103/ul Normal 0.3-0.8 [facility] Comment on above: Performed By: #### L ACT #### [facility] [address] [place] [address] Dr. Jose David Shanks Monocytes/100 WBC (Bld) 5.4 % Normal 1.7-12.0 [facility] Comment on above: Performed By: #### L ACT #### [facility] [address] [place] [address] Dr. Jose David Shanks NEUT # 9.9 103/ul Critically high 1.4-6.[address] [facility] Comment on above: Performed By: #### L ACT #### [facility] [address] [place] [address] Dr. Jose David Shanks Neutrophils/100 WBC (Bld) 86.3 % Critically high 43.0-75.0 [facility] Comment on above: Performed By: #### L ACT #### [facility] [address] [address] [address] Jose David Shanks Platelet mean volume (Bld) [Entitic vol] 10.1 fL Normal 9.5-13.5 [facility] Comment on above: Performed By: #### L ACT #### [facility] [address] [address] [address] Jose David Shanks PLT 333 103/ul Normal 150-450 [facility] Comment on above: Performed By: #### L ACT #### [facility] [address] [address] [address] Jose David Shanks RBC 3.75 106/ul Critically low 4.20-5.[address] [facility] Comment on above: Performed By: #### L ACT #### [facility] [address] [address] [address] Jose David Shanks WBC 11.5 103/ul Critically high 4.0-11.0 [facility] Comment on above: Performed By: #### L ACT #### [facility] [id number] Jose David Shanks CULTURE BLOODon 02-08-2023 Microscopic examination of blood, culture Culture Observations: NO GROWTH AT 5 DAYS. Normal [facility] Comment on above: Performed By: #### L ACT #### [facility] [address] [place] [address] Dr. Jose David Shanks Microscopic examination of blood, culture Culture Observations: NO GROWTH AT 5 DAYS. Normal [facility] Comment on above: Performed By: #### L ACT #### [facility] [address] [place] [address] Dr. Jose David Shanks ECHOCARDIO M/2D COMPLETEon 0 02-08-2023 ECHOCARDIO M/2D COMPLETE Patient: LASHAUN JOAQUIN Exam Date: 02/08/2023 : 1940 Gender:F Ordering : DR ALLI SCOTT . Admission #: [id number] Family : DR NATHAN HATHAWAY D.O. Order #: [id number] CLICK HERE TO VIEW EXAM ECHOCARDIOGRAM REPORT PROCEDURE: CARDIO PULMONARY ECHOCARDIO M/2D COMP INDICATIONS: Shortness of breath COMPARISON: None. DESCRIPTION: COMPLETE ECHOCARDIOGRAM Real-time transthoracic echocardiography with 2D, M-mode, spectral and color flow Doppler performed. QUALITY: Technical quality was good. LEFT VENTRICLE: Normal chamber size. Borderline left ventricular hypertrophy. Global left ventricular systolic function is normal. LV EF: Visual estimation of left ventricular ejection fraction is 65% DIASTOLIC: Grade II diastolic dysfunction. ATRIAL SEPTUM: LEFT ATRIUM: Moderate dilatation. RIGHT ATRIUM: Mild dilatation. RIGHT VENTRICLE: Normal chamber size. Normal right ventricular systolic function. TRICUSPID VALVE: Normal mobility and thickness. No stenosis with mild regurgitation. Moderate pulmonary hypertension. RVSP 48 mmHg MITRAL VALVE: Normal mobility and thickness. No mitral valve prolapse. No evidence of mitral valve stenosis. There is no mitral annular calcification. Mild to moderate mitral regurgitation. AORTIC VALVE: Normal trileaflet appearance. No visible sclerosis. Normal leaflet mobility. No evidence of aortic valve stenosis. No aortic regurgitation. AORTIC ROOT: Normal diameter and appearance. PULMONIC VALVE: Normal thickness and mobility. No stenosis. Trivial regurgitation. PERICARDIUM: No evidence of pericardial effusion. IVC: Collapses with inspirations. Normal size. PLEURA: CONCLUSION: 1. Left ventricular systolic function is normal. LVEF is 65%. 2. Normal right ventricular size and systolic function. 3. Grade 2 diastolic dysfunction. 4. Mild to moderate mitral regurgitation. 5. Mild tricuspid regurgitation. 6. Moderate pulmonary hypertension. Adult Echocardiography Procedure Report Left Ventricle LVEDD (3.7 - 5.6 cm): 4.47 cm LVESD (2.2 - 4.0 cm): 2.77 cm LVIVS thickness (0.6 - 1.2 cm): 1.10 cm LVPW thickness (0.5 - 1.0 cm): 0.84 cm e': 0.10 m/s E - e': 9.58 LVOT Max Gradient: 4.11 mm[Hg] Peak Velocity (LVOT): 1.01 m/s Mean Velocity (LVOT): 0.69 m/s LVOT Diameter 1.81 cm Left Ventricular Ejection Fraction: 65 % Left Atrium LA Volume Index (2D A2C): 85.04 ml, 85.04 ml Left Atrium Systolic Dimension: 3.47 cm Mitral Valve MV E to A Ratio: 1.14 Mitral Valve A-Wave Peak Velocity: 0.81 m/s Mitral Valve E-Wave Peak Velocity: 0.92 m/s Right Ventricle RV Internal Diastolic Dimension: 3.32 cm Aorta AO Root Diam: 3.10 cm Ascending Ao Diam: 1.87 cm Aortic Valve AoV Area (Peak Juan Antonio): 1.96 cm2, 1.96 cm2 AoV Area (VTI): 1.99 cm2, 1.99 cm2 Peak Velocity(Antegrade Flow): 1.33 m/s, 1.33 m/s Peak Gradient(Antegrade Flow): 7.06 mm[Hg], 7.06 mm[Hg] Mean Velocity(Antegrade Flow): 0.94 m/s, 0.94 m/s Mean Gradient(Antegrade Flow): 3.97 mm[Hg], 3.97 mm[Hg] Velocity Time Integral: 34.62 cm, 34.59 cm Tricuspid Valve Peak Velocity (Regurgitant Flow): 3.14 m/s, 3.02 m/s, 3.36 m/s Peak Velocity: 0.50 m/s Pulmonic Valve Mean Gradient: 1.83 mm[Hg] Mean Velocity: 0.64 m/s Peak Velocity: 0.98 m/s, 1.34 m/s Peak Gradient: 7.20 mm[Hg], 3.81 mm[Hg] Right Atrium Right Atrium Systolic Pressure: 49.67 ml, 49.67 ml Dictated by: Jaquan Payne M.D. on 02/09/2023 at 19:07 Approved by: Jaquan Payne M.D. on 02/09/2023 at 19:11 Normal [facility] LACTATE/LACTIC ACIDon 2022 Lactate [Moles/Vol] 1.4 mmol/L Normal 0.4-2.0 [facility] Comment on above: Performed By: #### L ACT #### [facility] [address] [place] [address] Dr. Jose David Shanks Lactate [Moles/Vol] 1.4 mmol/L Normal 0.4-2.0 [facility] Comment on above: Performed By: #### L ACT #### [facility] [address] [place] [address] Dr. Jose David Shanks PROF CHEM 8 (BAS METB)on Anion gap [Moles/Vol] 11.9 mmol/L Normal [facility] Comment on above: Performed By: #### C MADM, BMP #### [facility] [address] [address] [address] Jose David Shanks Calcium [Mass/Vol] 9.0 mg/dL Normal 8.5-10.1 [facility] Comment on above: Performed By: #### C MADM, BMP #### [facility] [address] [address] [address] Jose David Shanks Chloride [Moles/Vol] 105 mmol/L Normal 98-107 [facility] Comment on above: Performed By: #### C MADM, BMP #### [facility] [address] [address] [address] Jose David Shanks CO2 [Moles/Vol] 28.2 mmol/L Normal 21.0-32.0 [facility] Comment on above: Performed By: #### C MADM, BMP #### [facility] [address] [address] [address] Jose David Shanks Creatinine [Mass/Vol] 0.99 mg/dL Normal 0.55-1.02 [facility] Comment on above: Performed By: #### C MADM, BMP #### [facility] [address] [address] [address] Jose David Shanks EGFR-AF BAHAMIAN >60 Normal >=60 [facility] Comment on above: Performed By: #### C MADM, BMP #### [facility] [address] [address] [address] Jose David Shanks EGFR-NON AF BAHAMIAN 54 mL/min/1.73m2 Critically low >=60 [facility] Comment on above: Performed By: #### C MADM, BMP #### [facility] [address] [address] [address] Jose David Shanks Glucose [Mass/Vol] 123 mg/dL Critically high 74-106 [facility] Comment on above: Performed By: #### C MADM, BMP #### [facility] [address] [address] [address] Jose David Shanks Potassium [Moles/Vol] 4.1 mmol/L Normal 3.5-5.1 [facility] Comment on above: Performed By: #### C MADM, BMP #### [facility] [address] [address] [address] Jose David Shanks Sodium [Moles/Vol] 141 mmol/L Normal 136-145 [facility] Comment on above: Performed By: #### C MADM, BMP #### [facility] [address] [address] [address] Jose David Shanks Urea nitrogen [Mass/Vol] 14.0 mg/dL Normal 7.0-18.0 [facility] Comment on above: Performed By: #### C MADM, BMP #### [facility] [address] [place] [address] Dr. Jose David Shanks Urea nitrogen/Creatinine [Mass ratio] 14.1 mg/mg Normal [facility] Comment on above: Performed By: #### C MADM, BMP #### [facility] [address] [place] [address] Dr. Jose David Shanks RESPIRATORY PANEL PLUSon Adenovirus Not detected Normal NOT DETECTED [facility] Comment on above: Performed By: #### R SPLUS #### [facility] [address] [place] [address] Dr. Jose David Mccormack Parapertusis Not detected Normal NOT DETECTED [facility] Comment on above: Performed By: #### R SPLUS #### [facility] [address] [place] [address] Dr. Jose David Mccormack Pertussis Not detected Normal NOT DETECTED [facility] Comment on above: Performed By: #### R SPLUS #### [facility] [address] [place] [address] Dr. Jose David Shanks Chlamydia Pneumoniae Not detected Normal NOT DETECTED [facility] Comment on above: Performed By: #### R SPLUS #### [facility] [address] [place] [address] Dr. Jose David Shanks Coronavirus 229E Not detected Normal NOT DETECTED [facility] Comment on above: Performed By: #### R SPLUS #### [facility] [address] [place] [address] Dr. Jose David Shanks Coronavirus HKU1 Not detected Normal NOT DETECTED [facility] Comment on above: Performed By: #### R SPLUS #### [facility] [address] [place] [address] Dr. Jose David Shanks Coronavirus NL63 Not detected Normal NOT DETECTED [facility] Comment on above: Performed By: #### R SPLUS #### [facility] [address] [place] [address] Dr. Jose David Shanks Coronavirus OC43 Not detected Normal NOT DETECTED [facility] Comment on above: Performed By: #### R SPLUS #### [facility] [address] [place] [address] Dr. Jose David Shanks Influenza A H1 Not detected Normal NOT DETECTED [facility] Comment on above: Performed By: #### R SPLUS #### [facility] [address] [place] [address] Dr. Jose David Shanks Influenza A H1 2009 Not detected Normal NOT DETECTED [facility] Comment on above: Performed By: #### R SPLUS #### [facility] [address] [place] [address] Dr. Jose David Shanks Influenza A H3 Not detected Normal NOT DETECTED [facility] Comment on above: Performed By: #### R SPLUS #### [facility] [address] [place] [address] Dr. Jose David Shanks Influenza B Not detected Normal NOT DETECTED [facility] Comment on above: Performed By: #### R SPLUS #### [facility] [address] [place] [address] Dr. Jose David Shanks Metapneumovirus Not detected Normal NOT DETECTED [facility] Comment on above: Performed By: #### R SPLUS #### [facility] [address] [place] [address] Dr. Jose David Shanks Mycoplas. Pneumoniae Not detected Normal NOT DETECTED [facility] Comment on above: Performed By: #### R SPLUS #### [facility] [address] [place] [address] Dr. Jose David Shanks Parainfluenza 1 Not detected Normal NOT DETECTED [facility] Comment on above: Performed By: #### R SPLUS #### [facility] [address] [place] [address] Dr. Jose David Shanks Parainfluenza 2 Not detected Normal NOT DETECTED [facility] Comment on above: Performed By: #### R SPLUS #### [facility] [address] [place] [address] Dr. Joes David Shanks Parainfluenza 3 Not detected Normal NOT DETECTED [facility] Comment on above: Performed By: #### R SPLUS #### [facility] [address] [place] [address] Dr. Jose David Shanks Parainfluenza 4 Not detected Normal NOT DETECTED [facility] Comment on above: Performed By: #### R SPLUS #### [facility] [address] [place] [address] Dr. Jose David Shanks Rhino/Enterovirus Not detected Normal NOT DETECTED [facility] Comment on above: Performed By: #### R SPLUS #### [facility] [address] [place] [address] Dr. Jose David Shanks RP2 Header 1 RESPIRATORY PANEL: VIRUSES Normal [facility] Comment on above: Performed By: #### R SPLUS #### [facility] [address] [place] [address] Dr. Jose David Shanks RP2 Header 2 RESPIRATORY PANEL: BACTERIA Normal [facility] Comment on above: Performed By: #### R SPLUS #### [facility] [address] [place] [address] Dr. Jose David Shanks RSV Not detected Normal NOT DETECTED [facility] Comment on above: Performed By: #### R SPLUS #### [facility] [address] [place] [address] Dr. Jose David Shanks SARS-CoV-2 (COVID-19) RNA ZABRINA+probe Ql (Unsp spec) Not detected Normal NOT DETECTED [facility] Comment on above: Performed By: #### R SPLUS #### [facility] [address] [place] [address] Dr. Jose David Shanks XR CHEST 1 Von 02-08-2023 XR CHEST 1 V EXAM: XR CHEST 1 V HISTORY: SHORTNESS OF BREATH COMPARISON: Acute abdomen series dated 10/21/2021. TECHNIQUE: One view of the chest was obtained. FINDINGS: The cardiac silhouette is stable in size. Aortic atherosclerotic disease is seen. There are mixed interstitial and airspace opacities in the mid to lower lungs. There is no significant pneumothorax or pleural effusion. No acute osseous abnormality is seen. IMPRESSION: 1. Mixed interstitial and airspace opacities in the mid to lower lungs could represent pulmonary edema and/or multifocal pneumonia. Electronically authenticated by: Petra SAHU Date: 2023-02-08 05:21 Normal [facility] MG MAMM SCREEN 3D SCARLETT CADon 01-08-2023 MG MAMM SCREEN 3D SCARLETT CAD Patient: LASHAUN JOAQUIN Exam Date: 01/08/2023 : 1940 Gender:F Ordering : DR NATHAN HATHAWAY D.O. Admission #: [id number] Family : Order #: [id number] CLICK HERE TO VIEW EXAM RADIOLOGY REPORT PROCEDURE: MAMMOGRAM SCREENING 3D BILATERAL CAD COMPARISON: MG MAMM SCREEN SCARLETT W CAD, 01/03/2021. MG MAMM SCREEN 3D SCARLETT CAD, 01/04/2022. INDICATIONS: Screening mammography Calculator Name NCI Breast Cancer Risk Assessment Tool 5 Year Breast Cancer Risk 1.20% Lifetime Breast Cancer Risk 1.80% Personal Breast Cancer No Personal Ovarian Cancer No Treatments None Family Cancers Father with bladder cancer at age 67; Mother with lymphoma cancer at age 72; Sister with lymphoma cancer at age 60; Brother with colon cancer at age 77; Brother with bladder cancer at age 70; Brother with colon cancer at age 77; Brother with bladder cancer at age 67; Brother with lung cancer at age 60. LOCATION: [facility] BREAST COMPOSITION: Extremely dense, which lowers the sensitivity of mammography. FINDINGS: DIAGNOSTIC CATEGORY 2--BENIGN FINDING. NO CHANGE FROM COMPARISON. Scattered benign-appearing nodules are present. Scattered benign-appearing calcifications are present. Scattered benign-appearing lymph nodes are present. RIGHT BREAST: No significant suspicious finding. LEFT BREAST: No significant suspicious finding. RECOMMENDATIONS: ROUTINE MAMMOGRAM AND CLINICAL EVALUATION IN 12 MONTHS. PLEASE NOTE: A NORMAL MAMMOGRAM DOES NOT EXCLUDE THE POSSIBILITY OF BREAST CANCER. A CLINICALLY SUSPICIOUS PALPABLE LUMP SHOULD BE BIOPSIED. Dictated by: William Patel MD on 01/08/2023 at 11:21 Approved by: William Patel MD on 01/08/2023 at 11:24 Normal [facility] CNOVSPon 12-04-2022 CNOVSP Visit (SP) Office ([facility]) ----- LASHAUN JOAQUIN ([id number]) 1940 F Date Time Provider Department 12/04/22 1:30 PM LUIS MCKENZIE During your visit today, we recorded the following information about you: Temperature Pulse Respiration Blood pressure 97.1 degrees 63/minute 16/minute 167/54 Weight Height 90.4 kg 1.664 m Luis Mckenzie MD 12/06/2022 6:56 AM Signed PATIENT NAME: Lashaun Joaquin DATE: 12/04/2022 PRIMARY CARE PHYSICIAN: Nathan Hathaway DO Portions of this encounter note have been copied from my note from 05/29/2022 and has been updated where appropriate, and reflect my current medical decision making from today. CC: This is an 82 year old female with chronic neuropathy and arthritis, initially referred for evaluation of an abnormal SPEP, seen for scheduled follow-up. INTERIM HISTORY: Since the patient's last visit here she apparently developed chest heaviness and currently is being evaluated by her PCP for heart disease. Otherwise she has had no significant medical changes. Her neuropathic symptoms causing numbness in her feet has not changed. She denies any weakness or other neurological symptoms. Despite her neuropathy she remains very active. She has intermittent arthritic pain, not severe. No recent fevers or weight loss. Overall she feels relatively well. MEDICATIONS: Current Outpatient Medications Medication Sig pantoprazole DR (PROTONIX) 40 mg tablet MULTI-VITAMIN ORAL Take by mouth. calcium carbonate (CALCIUM 600 ORAL) Take by mouth. aspirin 81 mg cap Take by mouth. pravastatin sodium (PRAVASTATIN ORAL) Take 40 mg by mouth every evening. losartan (COZAAR) 100 mg tablet Take 100 mg by mouth once daily. temazepam (RESTORIL) 15 mg Take by mouth at bedtime as needed. ALPRAZolam (XANAX) 0.25 mg tablet Take 0.25 mg by mouth three times daily as needed. GABAPENTIN ORAL Take 100 mg by mouth twice daily. No current facility-administered medications for this visit. ALLERGIES: ALLERGIES Allergen Reactions Amlodipine Unknown Bactrim [Sulfametho* Unknown Cheratussin Ac [Cod* Unknown Doxycycline Hyclate Unknown Duloxetine Unknown Iodine And Iodide C* Unknown 08/04/22 confirmed with patient that she is not allergic to CT contrast and has had it previously without issues or premeds. Levaquin [Levofloxa* Unknown Penicillins Unknown Tetanus And Diphthe* Unknown Tetracyclines Unknown Zofran [Ondansetron] Unknown PAST MEDICAL HISTORY: PAST MEDICAL HISTORY Diagnosis Date Cervical spondylosis Chronic venous insufficiency Dysuria-frequency syndrome Essential hypertension Estrogen deficiency OMAR (generalized anxiety disorder) GERD (gastroesophageal reflux disease) Hyperlipidemia type II Irritable bowel syndrome with diarrhea Lipoma of neck Malaise and fatigue Paresthesias Peripheral polyneuropathy Primary insomnia Ptosis of right eyelid Trochanteric bursitis of right hip Unsteady gait when walking PAST SURGICAL HISTORY: PAST SURGICAL HISTORY Procedure Laterality Date TOTAL ABD HYSTERECTOMY+BLAD REPR FAMILY HISTORY: FAMILY HISTORY Problem Relation Age of Onset Lymphoma Mother Cancer Father Leukemia Sister Multiple Sclerosis Sister Lung Cancer Brother Colon Cancer Brother Lung Cancer Brother SOCIAL HISTORY: Social History Tobacco Use Smoking status: Former Types: Cigarettes Smokeless tobacco: Never COMPLETE REVIEW OF SYSTEMS: CONSTITUTION: Negative for pain, fatigue, weight loss, or appetite loss. EENT: Negative for mouth soreness, antibiotics use, epistaxis, visual problems, neck or facial swelling, fever/chills, bleeding gums, or hearing loss. CV: Negative for edema, calf swelling, palpitations, or chest pain. RESPIRATORY: Negative for cough, SOB, hemoptysis, or wheezing. GI: Negative for nausea/vomiting, heartburn, vomiting blood, dysphasia, diarrhea, blood in stool, constipation, early satiety, PICA, vegetarian, poor nutrition, abdominal fullness, or abdominal pain. NEUROLOGICAL: Negative for numbness/tingling, dizziness, gait disturbance, headache, speech disturbance, tremor, hemiparesis/sensory loss, or change in mental status. MUSCULOSKELETAL: Negative for joint pain, joint swelling, or proximal muscle weakness. SKIN: Negative for hair loss, bruising, nail changes, rash, itching, pallor, or jaundice. ENDO/URO: Negative for hot flashes, cold or heat intolerance, urinary frequency, urinary hesitancy, menorrhagia, or hematuria. PSYCH: Negative for anxiety, depression, or other. PHYSICAL EXAM: BP 167/54 Pulse 63 Temp 36.2 ?C (97.1 ?F) (Temporal) Resp 16 Ht 166.4 cm (5' 5.51 ) Wt 90.4 kg (199 lb 3.2 oz) SpO2 96% BMI 32.63 kg/m? GENERAL EXAM: Well developed/well nourished; in no acute distress. SKIN: Negative for lesions, rashes, or ulcers on the upper and lower extremiti (more content not included)... Normal [facility] CBC W Auto Differential pane l (Bld)on 11-27-2022 Basophils (Bld) [#/Vol] 0.04 10*3/uL Normal <0.11 [facility] Comment on above: Order Comment: Speci men Type: BLOOD SPECIMEN Ordering Facility: [facility] Address: [address] [place] [address] Performed By: #### 5 7021-8 #### [facility] CLIA [id number] [address] [place] [address]13 Basophils/100 WBC (Bld) 0.8 % Normal [facility] Comment on above: Order Comment: Speci men Type: BLOOD SPECIMEN Ordering Facility: [facility] Address: [address] [place] [address] Performed By: #### 5 7021-8 #### [facility] CLIA [id number] [address] [place] [address] 69426 Differential cell count method Nom (Bld) Auto Normal [facility] Comment on above: Order Comment: Speci men Type: BLOOD SPECIMEN Ordering Facility: [facility] Address: [address] [place] [address] Performed By: #### 5 7021-8 #### [facility] CLIA [id number] [address] [place] [address] 05524 Eosinophils (Bld) [#/Vol] 0.10 10*3/uL Normal <0.46 [facility] Comment on above: Order Comment: Speci men Type: BLOOD SPECIMEN Ordering Facility: [facility] Address: [address] [place] [address] Performed By: #### 5 7021-8 #### [facility] CLIA [id number] [address] [place] [address] 40777 Eosinophils/100 WBC (Bld) 2.0 % Normal [facility] Comment on above: Order Comment: Speci men Type: BLOOD SPECIMEN Ordering Facility: [facility] Address: [address] [address] Performed By: #### 5 7021-8 #### [facility] CLIA [id number] [address] [place] [address]32 Erythrocyte distribution width (RBC) [Ratio] 13.2 % Normal 11.5-15.0 [facility] Comment on above: Order Comment: Speci men Type: BLOOD SPECIMEN Ordering Facility: [facility] Address: [address] [address] Performed By: #### 5 7021-8 #### [facility] CLIA [id number] [address] [place] [address] 73501 Hematocrit (Bld) [Volume fraction] 33.9 % Low 36.0-46.0 [facility] Comment on above: Order Comment: Speci men Type: BLOOD SPECIMEN Ordering Facility: [facility] Address: [address] [address] Performed By: #### 5 7021-8 #### [facility] CLIA [id number] [address] [place] [address] 00234 Hemoglobin (Bld) [Mass/Vol] 10.9 g/dL Low 11.5-15.5 [facility] Comment on above: Order Comment: Speci men Type: BLOOD SPECIMEN Ordering Facility: [facility] Address: [address] [address] Performed By: #### 5 7021-8 #### [facility] CLIA [id number] [address] [place] [address] 18050 Immature granulocytes (Bld) [#/Vol] 0.04 10*3/uL Normal <0.10 [facility] Comment on above: Order Comment: Speci men Type: BLOOD SPECIMEN Ordering Facility: [facility] Address: [address] [address] Performed By: #### 5 7021-8 #### [facility] CLIA [id number] [address] [place] [address] 37586 Immature granulocytes/100 WBC (Bld) 0.8 % Normal [facility] Comment on above: Order Comment: Speci men Type: BLOOD SPECIMEN Ordering Facility: [facility] Address: [address] [place] [address] Performed By: #### 5 7021-8 #### [facility] CLIA [id number] [address] [place] [address] 78986 Lymphocytes (Bld) [#/Vol] 0.88 10*3/uL Low 1.00-4.00 [facility] Comment on above: Order Comment: Speci men Type: BLOOD SPECIMEN Ordering Facility: [facility] Address: [address] [place] [address] Performed By: #### 5 7021-8 #### [facility] CLIA [id number] [address] [place] [address] 86639 Lymphocytes/100 WBC (Bld) 17.6 % Normal [facility] Comment on above: Order Comment: Speci men Type: BLOOD SPECIMEN Ordering Facility: [facility] Address: [address] [place] [address] Performed By: #### 5 7021-8 #### [facility] CLIA [id number] [address] [place] [address] 02085 MCH (RBC) [Entitic mass] 29.0 pg Normal 26.0-34.0 [facility] Comment on above: Order Comment: Speci men Type: BLOOD SPECIMEN Ordering Facility: [facility] Address: [address] [place] [address] Performed By: #### 5 7021-8 #### [facility] IA [id number] [address] [place] [address] 55279 MCHC (RBC) [Mass/Vol] 32.2 g/dL Normal 30.5-36.0 [facility] Comment on above: Order Comment: Speci men Type: BLOOD SPECIMEN Ordering Facility: [facility] Address: [address] [address] Performed By: #### 5 7021-8 #### [facility] CLIA [id number] [address] [place] [address] 75836 MCV (RBC) [Entitic vol] 90.2 fL Normal 80.0-100.0 [facility] Comment on above: Order Comment: Speci men Type: BLOOD SPECIMEN Ordering Facility: [facility] Address: [address] [address] Performed By: #### 5 7021-8 #### [facility] CLIA [id number] [address] [place] [address] 43532 Monocytes (Bld) [#/Vol] 0.56 10*3/uL Normal <0.87 [facility] Comment on above: Order Comment: Speci men Type: BLOOD SPECIMEN Ordering Facility: [facility] Address: [address] [place] [address] Performed By: #### 5 7021-8 #### [facility] CLIA [id number] [address] [place] [address] 38431 Monocytes/100 WBC (Bld) 11.2 % Normal [facility] Comment on above: Order Comment: Speci men Type: BLOOD SPECIMEN Ordering Facility: [facility] Address: [address] [place] [address] Performed By: #### 5 7021-8 #### [facility] CLIA [id number] [address] [place] [address] 00692 Neutrophils (Bld) [#/Vol] 3.39 10*3/uL Normal 1.45-7.50 [facility] Comment on above: Order Comment: Speci men Type: BLOOD SPECIMEN Ordering Facility: [facility] Address: [address] [place] [address] Performed By: #### 5 7021-8 #### [facility] CLIA [id number] [address] [place] [address] 98064 Neutrophils/100 WBC (Bld) 67.6 % Normal [facility] Comment on above: Order Comment: Speci men Type: BLOOD SPECIMEN Ordering Facility: [facility] Address: [address] Performed By: #### 5 7021-8 #### [facility] CLIA [id number] [address] [place] [address] 13001 Nucleated RBC (Bld) [#/Vol] 10*3/uL Normal <0.01 [facility] Comment on above: Order Comment: Speci men Type: BLOOD SPECIMEN Ordering Facility: [facility] Address: [address] Performed By: #### 5 7021-8 #### [facility] CLIA [id number] [address] [place] [address] 22889 Nucleated RBC/100 WBC (Bld) [Ratio] 0.0 /100 WBC Normal [facility] Comment on above: Order Comment: Speci men Type: BLOOD SPECIMEN Ordering Facility: [facility] Address: [address] Performed By: #### 5 7021-8 #### [facility] CLIA [id number] [address] [place] [address] 49656 Platelet mean volume (Bld) [Entitic vol] 9.8 fL Normal 9.0-12.7 [facility] Comment on above: Order Comment: Speci men Type: BLOOD SPECIMEN Ordering Facility: [facility] Address: [address] Performed By: #### 5 7021-8 #### [facility] CLIA [id number] [address] [place] [address] 19127 Platelets (Bld) [#/Vol] 278 10*3/uL Normal 150-400 [facility] Comment on above: Order Comment: Speci men Type: BLOOD SPECIMEN Ordering Facility: [facility] Address: [address] Performed By: #### 5 7021-8 #### [facility] CLIA [id number] [address] [place] [address] 46522 RBC (Bld) [#/Vol] 3.76 10*6/uL Low 3.90-5.20 [facility] Comment on above: Order Comment: Speci men Type: BLOOD SPECIMEN Ordering Facility: [facility] Address: [address] [place] [address] Performed By: #### 5 7021-8 #### [facility] CLIA [id number] [address] [place] [address] 59473 WBC (Bld) [#/Vol] 5.01 10*3/uL Normal 3.70-11.00 [facility] Comment on above: Order Comment: Speci men Type: BLOOD SPECIMEN Ordering Facility: [facility] Address: [address] [place] [address] Performed By: #### 5 7021-8 #### [facility] CLIA [id number] [address] [place] [address] 33958 Comprehensive metabolic 2000 panelon 11-27-2022 Albumin [Mass/Vol] 3.9 g/dL Normal 3.9-4.9 [facility] Comment on above: Order Comment: Speci men Type: BLOOD SPECIMEN Ordering Facility: [facility] Address: [address] [place] [address] Performed By: #### 2 4323-8 #### [facility] CLIA [id number] [address] [place] [address] 24334 ALP [Catalytic activity/Vol] 48 U/L Normal 34-123 [facility] Comment on above: Order Comment: Speci men Type: BLOOD SPECIMEN Ordering Facility: [facility] Address: [address] [place] [address] Performed By: #### 2 4323-8 #### [facility] CLIA [id number] [address] [place] [address] 66135 ALT [Catalytic activity/Vol] 10 U/L Normal 7-38 [facility] Comment on above: Order Comment: Speci men Type: BLOOD SPECIMEN Ordering Facility: [facility] Address: [address] [place] [address] Performed By: #### 2 4323-8 #### [facility] CLIA [id number] [address] [place] [address] 47565 Anion gap [Moles/Vol] 8 mmol/L Low 9-18 [facility] Comment on above: Order Comment: Speci men Type: BLOOD SPECIMEN Ordering Facility: [facility] Address: [address] [place] [place] [address] Performed By: #### 2 4323-8 #### [facility] CLIA [id number] [address] [place] [address] 96758 AST [Catalytic activity/Vol] 14 U/L Normal 13-35 [facility] Comment on above: Order Comment: Speci men Type: BLOOD SPECIMEN Ordering Facility: [facility] Address: [address] [place] [address] Performed By: #### 2 4323-8 #### [facility] CLIA [id number] [address] [place] [address] 99290 Bilirubin [Mass/Vol] 0.4 mg/dL Normal 0.2-1.3 [facility] Comment on above: Order Comment: Speci men Type: BLOOD SPECIMEN Ordering Facility: [facility] Address: [address] [address] Performed By: #### 2 4323-8 #### [facility] CLIA [id number] [address] [place] [address] 05132 Calcium [Mass/Vol] 9.1 mg/dL Normal 8.5-10.2 [facility] Comment on above: Order Comment: Speci men Type: BLOOD SPECIMEN Ordering Facility: [facility] Address: [address] [place] [place] [address] Performed By: #### 2 4323-8 #### [facility] CLIA [id number] [address] [place] [address] 79086 Chloride [Moles/Vol] 104 mmol/L Normal 97-105 [facility] Comment on above: Order Comment: Speci men Type: BLOOD SPECIMEN Ordering Facility: [facility] Address: [address] [place] [address] Performed By: #### 2 4323-8 #### [facility] CLIA [id number] [address] [place] [address] 92953 CO2 [Moles/Vol] 30 mmol/L Normal 22-30 [facility] Comment on above: Order Comment: Speci men Type: BLOOD SPECIMEN Ordering Facility: [facility] Address: [address] [place] [address] Performed By: #### 2 4323-8 #### [facility] CLIA [id number] [address] [place] [address] 34953 Creatinine [Mass/Vol] 0.97 mg/dL High 0.58-0.96 [facility] Comment on above: Order Comment: Speci men Type: BLOOD SPECIMEN Ordering Facility: [facility] Address: [address] [place] [address] Performed By: #### 2 4323-8 #### [facility] CLIA [id number] [address] [place] [address] 92947 ESTIMATED GLOMERULAR FILTRATION RATE 59 mL/min/1.73m??? Low >=60 [facility] Comment on above: Order Comment: Speci men Type: BLOOD SPECIMEN Ordering Facility: [facility] Address: [address] [place] [address] Result Comment: Shoshana mated Glomerular Filtration Rate (eGFR) is calculated using the 2020 CKD-EPI creatinine equation. This equation utilizes serum creatinine, sex, and age as parameters. The creatinine assay has traceable calibration to isotope dilution-mass spectrometry. Refer to KDIGO guidelines for clinical interpretation. In patients with unstable renal function, e.g. those with acute kidney injury, the eGFR may not accurately reflect actual GFR. Performed By: #### 2 4323-8 #### [facility] CLIA [id number] [address] [place] [address] 42164 Glucose [Mass/Vol] 101 mg/dL High 74-99 [facility] Comment on above: Order Comment: Speci men Type: BLOOD SPECIMEN Ordering Facility: [facility] Address: [address] Result Comment: The [place] Diabetes [employer] (ADA) provides guidance for cutoff values for fasting glucose and random glucose. The ADA defines fasting as no caloric intake for at least 8 hours. Fasting plasma glucose results between 100 to 125 mg/dL indicate increased risk for diabetes (prediabetes). Fasting plasma glucose results greater than or equal to 126 mg/dL meet the criteria for diagnosis of diabetes. In the absence of unequivocal hyperglycemia, results should be confirmed by repeat testing. In a patient with classic symptoms of hyperglycemia or hyperglycemic crisis, random plasma glucose results greater than or equal to 200 mg/dL meet the criteria for diagnosis of diabetes. Reference: Standards of Medical Care in Diabetes 2016, [place] [employer]. Diabetes Care. 2016.39(Suppl 1). Performed By: #### 2 4323-8 #### [facility] CLIA [id number] [address] [place] [address] 46658 Potassium [Moles/Vol] 4.5 mmol/L Normal 3.7-5.1 [facility] Comment on above: Order Comment: Speci men Type: BLOOD SPECIMEN Ordering Facility: [facility] Address: [address] Performed By: #### 2 4323-8 #### [facility] CLIA [id number] [address] [place] [address] 43864 Protein [Mass/Vol] 6.5 g/dL Normal 6.3-8.0 [facility] Comment on above: Order Comment: Speci men Type: BLOOD SPECIMEN Ordering Facility: [facility] Address: [address] Performed By: #### 2 4323-8 #### [facility] CLIA [id number] [address] [place] [address] 88594 Sodium [Moles/Vol] 142 mmol/L Normal 136-144 [facility] Comment on above: Order Comment: Speci men Type: BLOOD SPECIMEN Ordering Facility: [facility] Address: [address] [place] [address] Performed By: #### 2 4323-8 #### [facility] CLIA [id number] [address] [place] [address] 62020 Urea nitrogen [Mass/Vol] 17 mg/dL Normal 7-21 [facility] Comment on above: Order Comment: Speci men Type: BLOOD SPECIMEN Ordering Facility: [facility] Address: [address] [place] [address] Performed By: #### 2 4323-8 #### [facility] CLIA [id number] [address] [place] [address] 85263 IMMUNOFIXATION SCREEN, SERUM on 11-27-2022 MPA RESULT No M protein is identified. Normal No M protein is identified. [facility] Comment on above: Order Comment: Speci men Type: BLOOD SPECIMEN Ordering Facility: [facility] Address: [address] [address] Performed By: #### 5 7021-8 #### [facility] CLIA [id number] [address] [place] [address] 01209 STAFF REVIEW ([facility]) Reviewed by Taqueria Beck MD, Ph.D ([id number]) Normal [facility] Comment on above: Order Comment: Speci men Type: BLOOD SPECIMEN Ordering Facility: [facility] Address: [address] [address] Performed By: #### 5 7021-8 #### [facility] CLIA [id number] [address] [place] [address] 01242 IMMUNOGLOBULINS GAMon 2022 IgA [Mass/Vol] 78 mg/dL Normal 70-400 [facility] Comment on above: Order Comment: Speci men Type: BLOOD SPECIMEN Ordering Facility: [facility] Address: [address] [place] [address] Performed By: #### 2 4323-8 #### [facility] CLIA [id number] [address] [place] [address] 79302 IgG [Mass/Vol] 683 mg/dL Low 700-1600 [facility] Comment on above: Order Comment: Speci men Type: BLOOD SPECIMEN Ordering Facility: [facility] Address: [address] [place] [address] Performed By: #### 2 4323-8 #### [facility] CLIA [id number] [address] [place] [address] 75338 IgM [Mass/Vol] 300 mg/dL High 40-230 [facility] Comment on above: Order Comment: Speci men Type: BLOOD SPECIMEN Ordering Facility: [facility] Address: [address] [place] [address] Performed By: #### 2 4323-8 #### [facility] CLIA [id number] [address] [place] [address] 85281 KAPPA/BOWLES,FREE,SERon 2022 Immunoglobulin light chains.kappa.free (S) [Mass/Vol] 82.2 mg/L High 3.3-19.4 [facility] Comment on above: Order Comment: Speci men Type: BLOOD SPECIMEN Ordering Facility: [facility] Address: [address] [place] [address] Result Comment: Rare ly, increased serum free light chains levels may not be detected or accurately quantified due to prozone phenomenon or in high viscosity samples using this immunoturbidimetric assay. Correlation with other laboratory results and clinical findings is recommended. The [place] Free Light Chain was performed using the Binding Site Optilite immunoturbidimetric method. Result obtained with different assay methods or kits cannot be used interchangeably. Performed By: #### 2 4323-8 #### [facility] CLIA [id number] [address] [place] [address] 58623 Immunoglobulin light chains.kappa/Immunogl obulin light chains.lambda (S) [Mass ratio] 4.11 High 0.26-1.65 [facility] Comment on above: Order Comment: Speci men Type: BLOOD SPECIMEN Ordering Facility: [facility] Address: [address] [place], [place] [address] Performed By: #### 2 4323-8 #### [facility] CLIA [id number] [address] [place] [address] 73924 Immunoglobulin light chains.lambda.free [Mass/Vol] 20.0 mg/L Normal 5.7-26.3 [facility] Comment on above: Order Comment: Speci men Type: BLOOD SPECIMEN Ordering Facility: [facility] Address: [address] [address] Result Comment: Rare ly, increased serum free light chains levels may not be detected or accurately quantified due to prozone phenomenon or in high viscosity samples using this immunoturbidimetric assay. Correlation with other laboratory results and clinical findings is recommended. The L[place] Free Light Chain was performed using the Binding Site Optilite immunoturbidimetric method. Result obtained with different assay methods or kits cannot be used interchangeably. Performed By: #### 2 4323-8 #### [facility] CLIA [id number] [address] [place] [address] 35835 PROTEIN ELECTROPHORESIS SERU M WITH BRANDON (P)on 11-27-2022 Albumin [Mass/Vol] 3.54 g/dL Normal 3.43-5.41 [facility] Comment on above: Order Comment: Speci men Type: BLOOD SPECIMEN Ordering Facility: [facility] Address: [address] [address] Performed By: #### 2 4323-8 #### [facility] CLIA [id number] [address] [place] [address] 61773 Alpha 1 globulin Elph [Mass/Vol] 0.36 g/dL Normal 0.18-0.43 [facility] Comment on above: Order Comment: Speci men Type: BLOOD SPECIMEN Ordering Facility: [facility] Address: [address] [address] Performed By: #### 2 4323-8 #### [facility] CLIA [id number] [address] [place] [address] 66613 Alpha 2 globulin Elph [Mass/Vol] 0.75 g/dL Normal 0.42-0.98 [facility] Comment on above: Order Comment: Speci men Type: BLOOD SPECIMEN Ordering Facility: [facility] Address: [address] [place] [address] Performed By: #### 2 4323-8 #### [facility] CLIA [id number] [address] [place] [address] 42457 Beta globulin Elph [Mass/Vol] 0.59 g/dL Low 0.61-1.17 [facility] Comment on above: Order Comment: Speci men Type: BLOOD SPECIMEN Ordering Facility: [facility] Address: [address] [place] [address] Performed By: #### 2 4323-8 #### [facility] CLIA [id number] [address] [place] [address] 83196 COMMENT (SERUM PROT ELECTRO) Monoclonal Protein analysis (immunofixation) is not indicated. Normal [facility] Comment on above: Order Comment: Speci men Type: BLOOD SPECIMEN Ordering Facility: [facility] Address: [address] [place] [address] Performed By: #### 2 4323-8 #### [facility] CLIA [id number] [address] [place] [address] 25955 Gamma globulin Elph [Mass/Vol] 0.76 g/dL Normal 0.53-1.51 [facility] Comment on above: Order Comment: Speci men Type: BLOOD SPECIMEN Ordering Facility: [facility] Address: [address] [place] [address] Performed By: #### 2 4323-8 #### [facility] CLIA [id number] [address] [place] [address] 79094 M-PROTEIN LOCATION Normal [facility] Comment on above: Order Comment: Speci men Type: BLOOD SPECIMEN Ordering Facility: [facility] Address: [address] [place] [address] Result Comment: Not Applicable. Performed By: #### 2 4323-8 #### [facility] CLIA [id number] [address] [place] [address] 03071 Protein Fractions [Interp] No definitive M protein is identified on protein electrophoresis. Normal No definitive M protein is identified on protein electrophor esis. [facility] Comment on above: Order Comment: Speci men Type: BLOOD SPECIMEN Ordering Facility: [facility] Address: [address] [place] [address] Performed By: #### 2 4323-8 #### [facility] CLIA [id number] [address] [place] [address] 43721 Protein.monoclonal Elph [Mass/Vol] 0.00 g/dL Normal <=0.00 [facility] Comment on above: Order Comment: Speci men Type: BLOOD SPECIMEN Ordering Facility: [facility] Address: [address] [place] [address] Performed By: #### 2 4323-8 #### [facility] CLIA [id number] [address] [place], [place] [address] SPE STAFF REVIEW Reviewed by Milka Bahena MD [facility] Comment on above: Order Comment: Speci men Type: BLOOD SPECIMEN Ordering Facility: [facility] Address: [address] [place] [address] Performed By: #### 2 4323-8 #### [facility] CLIA [id number] [address] [place], [place] [address] Prot SerPl-mCncon 11-27-2022 Protein [Mass/Vol] 6.0 g/dL Low 6.3-8.0 [facility] Comment on above: Order Comment: Speci men Type: BLOOD SPECIMEN Ordering Facility: [facility] Address: [address] [place] [address] Performed By: #### 2 4323-8 #### [facility] CLIA [id number] [address] [place] [address] HEAD_NECKon 09-11-[address] HEAD_NECK EXAM: US ST HEAD_NEC K HISTORY: Localized enlarged lymph nodes COMPARISON: 01/11/2021 TECHNIQUE: Grayscale and color ultrasound FINDINGS: The submandibular glands are symmetric, normal in size, contour and echotexture. No focal mass Cranial to the left submandibular gland is a oval 1.1 x 0.4 x 0.6 cm lesion with a hypervascular hyperechogenic hilum, consistent with a normal-size lymph node IMPRESSION: Normal sized lymph node left neck cranial to the submandibular gland Electronically authenticated by: WILLIAM PATEL Date: 2022-09-11 17:07 Normal [facility] Covid-19 PCR (CVDTB)on SARS-CoV-2 (COVID-19) RNA ZABRINA+probe Ql (Unsp spec) Detected Critically abnormal NOT DETECTED [facility] Comment on above: Result Comment: This test is not yet approved or cleared by the [place] FDA. When there are no FDA-approved or cleared tests available, and other criteria are met, FDA can make tests available under an emergency access mechanism called an Emergency Use Authorization (EUA). The EUA for this test is supported by the [place] of Health and Human Service's (HHS's) declaration that circumstances exist to justify the emergency use of in vitro diagnostics for the detection and/or diagnosis of the virus that causes COVID-19. This EUA will remain in effect (meaning this test can be used) for the duration of the COVID-19 declaration justifying emergency of IVDs, unless it is terminated or revoked by FDA (after which the test may no longer be used). Performed By: #### [facility] #### [facility] [address] [place] [address] Dr. Jose David Shanks Vital Signs Date Time Vital Sign Value Performing Clinician Facility 02-01-2024 11:040 Body height 165.1 cm [facility] 02-01-2024 11:040 Body mass index (BMI) [Ratio] 27.3 kg/m2 [facility] 02-01-2024 11:040 Body weight 74.44 kg [facility] 02-01-2024 11:010400 Diastolic blood pressure 72 mm[Hg] [facility] 02-01-2024 11:01-0400 Heart rate 49 /min [facility] 02-01-2024 11:01-0400 Respiratory rate 12 /min [facility] 02-01-2024 11:01-0400 Systolic blood pressure 131 mm[Hg] [facility] 11-02-2023 11:00-0500 Body height 165.1 cm Nathan Ball Other [facility] [employer] Other 11-02-2023 11:00-0500 Body mass index (BMI) [Ratio] 31.78 kg/m2 Nathan Ball Other [facility] [employer] Other 11-02-2023 11:00-0500 Body weight 86.64 kg Nathan Ball Other [employer] Other 11-02-2023 11:00-0500 Diastolic blood pressure 80 mm[Hg] Nathan Ball Other [employer] Other 11-02-2023 11:00-0500 Respiratory rate 16 /min Nathan Ball Other [employer] Other 11-02-2023 11:00-0500 Systolic blood pressure 130 mm[Hg] Nathan Ball Other [employer] Other 10-02-2023 09:45-0500 Body height 165.1 cm Nathan Ball Other [employer] Other 10-02-2023 09:45-0500 Body mass index (BMI) [Ratio] 31.61 kg/m2 Nathan Ball Other [employer] Other 10-02-2023 09:45-0500 Body weight 86.18 kg Nathan Ball Other [employer] Other 10-02-2023 09:45-0500 Diastolic blood pressure 74 mm[Hg] Nathan Ball Other [employer] Other 10-02-2023 09:45-0500 Respiratory rate 12 /min Nathan Ball Other [employer] Other 10-02-2023 09:45-0500 Systolic blood pressure 144 mm[Hg] Nathan Ball Other [employer] Other 06-08-2023 11:15-0400 Body height 165.1 cm Nathan Ball Other [employer] Other 06-08-2023 11:15-0400 Body mass index (BMI) [Ratio] 32.95 kg/m2 Nathan Ball Other [employer] Other 06-08-2023 11:15-0400 Body weight 89.81 kg Nathan Ball Other [employer] Other 06-08-2023 11:15-0400 Diastolic blood pressure 62 mm[Hg] Nathan Ball Other [employer] Other 06-08-2023 11:15-0400 Respiratory rate 12 /min Nathan Ball Other [employer] Other 06-08-2023 11:15-0400 Systolic blood pressure 138 mm[Hg] Nathan Ball Other [employer] Other 06-04-2023 13:51-0400 Body temperature 97.7 [degF] Luis Mckenzie MD Work Phone: [facility] 06-04-2023 13:51-0400 Body weight 91.99 kg Luis Mckenzie MD Work Phone: [facility] 06-04-2023 13:51-0400 Diastolic blood pressure 58 mm[Hg] Luis Mckenzie MD Work Phone: [facility] 06-04-2023 13:51-0400 Heart rate 56 /min Luis Mckenzie MD Work Phone: [facility] 06-04-2023 13:51-0400 Respiratory rate 18 /min Luis Mckenzie MD Work Phone: [facility] 06-04-2023 13:51-0400 SaO2% (BldA) [Mass fraction] 98 % Luis Mckenzie MD Work Phone: [facility] 06-04-2023 13:51-0400 Systolic blood pressure 155 mm[Hg] Luis Mckenzie MD Work Phone: [facility] 05-25-2023 11:15-0400 Body height 165.1 cm Nathan Ball Other [employer] Other 05-25-2023 11:15-0400 Body mass index (BMI) [Ratio] 32.86 kg/m2 Nathan Ball Other [employer] Other 05-25-2023 11:15-0400 Body weight 89.59 kg Nathan Ball Other [employer] Other 05-25-2023 11:15-0400 Diastolic blood pressure 68 mm[Hg] Nathan Ball Other [employer] Other 05-25-2023 11:15-0400 Respiratory rate 16 /min Nathan Ball Other [employer] Other 05-25-2023 11:15-0400 Systolic blood pressure 142 mm[Hg] Nathan Ball Other [employer] Other 05-18-2023 15:30-0400 Body temperature 97.7 [degF] DO Nathan Ball Work Phone: [facility] 05-18-2023 15:30-0400 Diastolic blood pressure 71 mm[Hg] DO Nathan Ball Work Phone: [facility] 05-18-2023 15:30-0400 Heart rate 62 /min DO Nathan Ball Work Phone: [facility] 05-18-2023 15:30-0400 Respiratory rate 16 /min DO Nathan Ball Work Phone: [facility] 05-18-2023 15:30-0400 SaO2% (BldA) [Mass fraction] 95 % DO Nathan Ball Work Phone: [facility] 05-18-2023 15:30-0400 Systolic blood pressure 145 mm[Hg] DO Nathan Ball Work Phone: [facility] 05-18-2023 05:39-0400 Body weight 88.1 kg DO Nathan Ball Work Phone: [facility] 05-17-2023 20:00-0400 Inhaled oxygen flow rate 1.5 L/min DO Nathan Ball Work Phone: [facility] 05-17-2023 15:54-0400 Body height 172.72 cm DO Nathan Ball Work Phone: [facility] 05-16-2023 11:30-0400 Body height 165.1 cm Nathan Ball Other [facility] [employer] Other 05-16-2023 11:30-0400 Body mass index (BMI) [Ratio] 33.28 kg/m2 Nathan Ball Other [employer] Other 05-16-2023 11:30-0400 Body weight 90.72 kg Nathan Ball Other [employer] Other 05-16-2023 11:30-0400 Diastolic blood pressure 69 mm[Hg] Nathan Ball Other [employer] Other 05-16-2023 11:30-0400 Respiratory rate 16 /min Nathan Ball Other [employer] Other 05-16-2023 11:30-0400 Systolic blood pressure 192 mm[Hg] Nathan Ball Other [employer] Other 05-09-2023 11:15-0400 Body height 165.1 cm Nathan Ball Other [employer] Other 05-09-2023 11:15-0400 Body mass index (BMI) [Ratio] 32.75 kg/m2 Nathan Ball Other [employer] Other 05-09-2023 11:15-0400 Body weight 89.27 kg Nathan Ball Other [employer] Other 05-09-2023 11:15-0400 Diastolic blood pressure 62 mm[Hg] Nathan Ball Other [employer] Other 05-09-2023 11:15-0400 Respiratory rate 16 /min Nathan Ball Other [employer] Other 05-09-2023 11:15-0400 SaO2% (BldA) [Mass fraction] 98 % Nathan Ball Other [employer] Other 05-09-2023 11:15-0400 Systolic blood pressure 189 mm[Hg] Nathan Ball Other [employer] Other 04-26-2023 11:30-0400 Body height 165.1 cm Nathan Ball Other [employer] Other 04-26-2023 11:30-0400 Body mass index (BMI) [Ratio] 32.53 kg/m2 Nathan Ball Other [employer] Other 04-26-2023 11:30-0400 Body weight 88.68 kg Nathan Ball Other [employer] Other 04-26-2023 11:30-0400 Diastolic blood pressure 80 mm[Hg] Nathan Ball Other [employer] Other 04-26-2023 11:30-0400 Respiratory rate 16 /min Nathan Ball Other [employer] Other 04-26-2023 11:30-0400 Systolic blood pressure 136 mm[Hg] Nathan Ball Other [employer] Other 04-18-2023 09:45-0400 Body height 165.1 cm Nathan Ball Other [employer] Other 04-18-2023 09:45-0400 Body mass index (BMI) [Ratio] 33.28 kg/m2 Nathan Ball Other [employer] Other 04-18-2023 09:45-0400 Body weight 90.72 kg Nathan Ball Other [employer] Other 04-18-2023 09:45-0400 Diastolic blood pressure 76 mm[Hg] Nathan Ball Other [employer] Other 04-18-2023 09:45-0400 Respiratory rate 20 /min Nathan Ball Other [employer] Other 04-18-2023 09:45-0400 SaO2% (BldA) [Mass fraction] 98 % Nathan Ball Other [employer] Other 04-18-2023 09:45-0400 Systolic blood pressure 132 mm[Hg] Nathan Ball Other [employer] Other 03-15-2023 10:45-0400 Body height 165.1 cm Nathan Ball Other [employer] Other 03-15-2023 10:45-0400 Body mass index (BMI) [Ratio] 31.95 kg/m2 Nathan Ball Other [employer] Other 03-15-2023 10:45-0400 Body weight 87.09 kg Nathan Ball Other [employer] Other 03-15-2023 10:45-0400 Diastolic blood pressure 77 mm[Hg] Nathan Ball Other [employer] Other 03-15-2023 10:45-0400 Respiratory rate 16 /min Nathan Ball Other [employer] Other 03-15-2023 10:45-0400 Systolic blood pressure 151 mm[Hg] Nathan Ball Other [facility] [employer] Other 03-09-2023 17:00-0400 Body temperature 97.9 [degF] DO Nathan Ball Work Phone: [facility] 03-09-2023 17:00-0400 Diastolic blood pressure 72 mm[Hg] DO Nathan Ball Work Phone: [facility] 03-09-2023 17:00-0400 Heart rate 54 /min DO Nathan Ball Work Phone: [facility] 03-09-2023 17:00-0400 Respiratory rate 16 /min DO Nathan Ball Work Phone: [facility] 03-09-2023 17:00-0400 SaO2% (BldA) [Mass fraction] 96 % DO Nathan Ball Work Phone: [facility] 03-09-2023 17:00-0400 Systolic blood pressure 140 mm[Hg] DO Nathan Ball Work Phone: [facility] 03-09-2023 08:11-0400 Body height 165.1 cm DO Nathan Ball Work Phone: [facility] 03-09-2023 08:11-0400 Body weight 90 kg DO Nathan Ball Work Phone: [facility] 03-07-2023 10:14-0400 Diastolic blood pressure 70 mm[Hg] Nathan E Ball Work Phone: [facility] DO Work Phone: 03-07-2023 10:14-0400 Systolic blood pressure 138 mm[Hg] Nathan E Ball Work Phone: [facility] DO Work Phone: 03-07-2023 10:04-0400 Body height 165.1 cm Nathan E Ball Work Phone: [facility] DO Work Phone: 03-07-2023 10:04-0400 Body mass index (BMI) [Ratio] 33.95 kg/m2 Nathan E Ball Work Phone: [facility] DO Work Phone: 03-07-2023 10:04-0400 Body surface area Derived from formula 1.99 m2 Nathan E Ball Work Phone: [facility] DO Work Phone: 03-07-2023 10:04-0400 Body weight 92.53 kg Nathan E Ball Work Phone: [facility] DO Work Phone: 03-07-2023 10:04-0400 Diastolic blood pressure 72 mm[Hg] Nathan E Ball Work Phone: [facility] DO Work Phone: 03-07-2023 10:04-0400 Heart rate 45 /min Nathan E Ball Work Phone: [facility] [employer] 250 DO Work Phone: 03-07-2023 10:04-0400 Systolic blood pressure 144 mm[Hg] Nathan E Ball Work Phone: [facility] [employer] 250 DO Work Phone: 02-14-2023 11:15-0400 Body height 165.1 cm Nathan Ball Other [employer] Other 02-14-2023 11:15-0400 Body mass index (BMI) [Ratio] 32.61 kg/m2 Nathan Ball Other [employer] Other 02-14-2023 11:15-0400 Body weight 88.91 kg Nathan Ball Other [facility] [employer] Other 02-14-2023 11:15-0400 Diastolic blood pressure 72 mm[Hg] Nathan Ball Other [facility] [employer] Other 02-14-2023 11:15-0400 Respiratory rate 12 /min Nathan Ball Other [employer] Other 02-14-2023 11:15-0400 Systolic blood pressure 204 mm[Hg] Nathan Ball Other [facility] [employer] Other 02-02-2023 12:15-0400 Body height 165.1 cm Nathan Ball Other [employer] Other 02-02-2023 12:15-0400 Body mass index (BMI) [Ratio] 32.78 kg/m2 Nathan Ball Other [employer] Other 02-02-2023 12:15-0400 Body weight 89.36 kg Nathan Ball Other [employer] Other 02-02-2023 12:15-0400 Diastolic blood pressure 70 mm[Hg] Nathan Ball Other [employer] Other 02-02-2023 12:15-0400 Respiratory rate 12 /min Nathan Ball Other [employer] Other 02-02-2023 12:15-0400 Systolic blood pressure 201 mm[Hg] Nathan Ball Other [employer] Other 12-14-2022 10:00-0500 Body height 165.1 cm Nathan Ball Other [employer] Other 12-14-2022 10:00-0500 Body mass index (BMI) [Ratio] 32.53 kg/m2 Nathan Ball Other [employer] Other 12-14-2022 10:00-0500 Body weight 88.68 kg Nathan Ball Other [employer] Other 12-14-2022 10:00-0500 Diastolic blood pressure 70 mm[Hg] Nathan Ball Other [employer] Other 12-14-2022 10:00-0500 Respiratory rate 12 /min Nathan Ball Other [employer] Other 12-14-2022 10:00-0500 Systolic blood pressure 140 mm[Hg] Nathan Ball Other [employer] Other 12-04-2022 13:25-0500 Body height 166.4 cm Luis Mckenzie MD Work Phone: [facility] 12-04-2022 13:25-0500 Body temperature 97.11 [degF] Luis Mckenzie MD Work Phone: [facility] 12-04-2022 13:25-0500 Body weight 90.36 kg Luis Mckenzie MD Work Phone: [facility] 12-04-2022 13:25-0500 Diastolic blood pressure 54 mm[Hg] Luis Mckenzie MD Work Phone: [facility] 12-04-2022 13:25-0500 Heart rate 63 /min Luis Mckenzie MD Work Phone: [facility] 12-04-2022 13:25-0500 Respiratory rate 16 /min Luis Mckenzie MD Work Phone: [facility] 12-04-2022 13:25-0500 SaO2% (BldA) [Mass fraction] 96 % Luis Mckenzie MD Work Phone: [facility] 12-04-2022 13:25-0500 Systolic blood pressure 167 mm[Hg] Luis Mckenzie MD Work Phone: [facility] 11-14-2022 15:00-0500 Body height 165.1 cm Nathan Ball Other [employer] Other 11-14-2022 15:00-0500 Body mass index (BMI) [Ratio] 32.53 kg/m2 Nathan Ball Other [employer] Other 11-14-2022 15:00-0500 Body weight 88.68 kg Nathan Ball Other [employer] Other 11-14-2022 15:00-0500 Diastolic blood pressure 72 mm[Hg] Nathan Ball Other [employer] Other 11-14-2022 15:00-0500 Respiratory rate 12 /min Nathan Ball Other [employer] Other 11-14-2022 15:00-0500 Systolic blood pressure 130 mm[Hg] Nathan Ball Other [employer] Other 05-29-2022 10:06-0400 Body height 166.4 cm Luis Mckenzie MD Work Phone: [facility] 05-29-2022 10:06-0400 Body temperature 97.59 [degF] Luis Mckenzie MD Work Phone: [facility] 05-29-2022 10:06-0400 Body weight 89.72 kg Luis Mckenzie MD Work Phone: [facility] 05-29-2022 10:06-0400 Diastolic blood pressure 50 mm[Hg] Luis Mckenzie MD Work Phone: [facility] 05-29-2022 10:06-0400 Heart rate 50 /min Luis Mckenzie MD Work Phone: [facility] 05-29-2022 10:06-0400 Respiratory rate 16 /min Luis Mckenzie MD Work Phone: [facility] 05-29-2022 10:06-0400 SaO2% (BldA) [Mass fraction] 96 % Luis Mckenzie MD Work Phone: [facility] 05-29-2022 10:06-0400 Systolic blood pressure 155 mm[Hg] Lius Mckenzie MD Work Phone: [facility] Encounters Encounter Date Encounter Type Care Provider Facility Start: 02-01-2024 End: 02-01-2024 ambulatory [facility] Work Phone: Start: 02-01-2024 End: 02-01-2024 Patient encounter procedure [facility] Work Phone: Start: 01-04-2024 End: 01-04-2024 ambulatory Nathan Hathaway Other [employer] Other Start: 01-04-2024 Telephone encounter Nathan Hathaway [facility] Start: 12-18-2023 Non-patient / Non-visit [facility] [employer] Work Phone: Start: 11-27-2023 End: 11-27-2023 ambulatory Nathan Ball Other [employer] Other Start: 11-27-2023 Telephone encounter Nathan Ball [facility] Start: 11-05-2023 End: 11-05-2023 ambulatory NATHAN E ISABELA Facility:[facility] Start: 11-02-2023 End: 11-02-2023 ambulatory Nathan Ball Other [employer] Other Start: 11-02-2023 Office outpatient vi sit 25 minutes Nathan Ball [facility] Start: 10-17-2023 End: 10-17-2023 ambulatory [facility] Start: 10-02-2023 End: 10-02-2023 ambulatory Nathan Ball Other [employer] Other Start: 10-02-2023 Office outpatient vi sit 25 minutes Nathan Ball [facility] Start: 09-26-2023 End: 09-26-2023 ambulatory Nathan Ball Other [employer] Other Start: 09-26-2023 Telephone encounter Nathan Ball [facility] Start: 09-21-2023 End: 09-21-2023 ambulatory Nathan Ball Other [employer] Other Start: 09-21-2023 Telephone encounter Nathan Ball [facility] Start: 2023 End: 2023 ambulatory Nathan Ball Other [employer] Other Start: 2023 Telephone encounter Nathan Ball [facility] Start: 09-13-2023 End: 09-13-2023 ambulatory Nathan Ball Other [employer] Other Start: 09-13-2023 Telephone encounter Nathan Ball [facility] Start: 09-11-2023 End: 09-11-2023 ambulatory Nathan Ball Other [employer] Other Start: 09-11-2023 Office outpatient vi sit 15 minutes Nathan Ball [facility] Start: 08-16-2023 End: 08-16-2023 ambulatory Nathan Ball Other [employer] Other Start: 08-16-2023 Telephone encounter Nathan Ball [facility] Start: 07-31-2023 End: 07-31-2023 ambulatory Nathan Ball Other [employer] Other Start: 07-31-2023 Telephone encounter Nathan Ball [facility] Start: 07-30-2023 End: 07-30-2023 ambulatory Nathan Ball Other [employer] Other Start: 07-30-2023 Telephone encounter Nathan Ball [facility] Start: 07-19-2023 End: 07-19-2023 ambulatory Nathan Ball Other [employer] Other Start: 07-19-2023 Telephone encounter Nathan Ball [facility] Start: 07-18-2023 End: 07-18-2023 ambulatory Nathan Ball Other [employer] Other Start: 07-18-2023 Telephone encounter Nathan Ball [facility] Start: 07-17-2023 End: 07-17-2023 ambulatory Nathan Ball Other [employer] Other Start: 07-17-2023 Nursing evaluation o f patient and report Nathan Hathaway [facility] Start: 06-28-2023 End: 06-28-2023 ambulatory Nathan Ball Other [employer] Other Start: 06-28-2023 Telephone encounter Nathan Ball [facility] Start: 06-25-2023 End: 06-25-2023 ambulatory Nathan Ball Other [employer] Other Start: 06-25-2023 Telephone encounter Nathan Ball [facility] Start: 06-21-2023 End: 06-21-2023 ambulatory Nathan Hathaway Other [employer] Other Start: 06-21-2023 Telephone encounter Nathan Hathaway [facility] Start: 06-19-2023 End: 06-19-2023 ambulatory Nathan Hathaway Other [employer] Other Start: 06-19-2023 Telephone encounter Nathan Hathaway [facility] Start: 06-18-2023 End: 06-18-2023 ambulatory Nathan Hathaway Other [employer] Other Start: 06-18-2023 Telephone encounter Nathan CHURCHILL [facility] Start: 06-15-2023 End: 06-15-2023 ambulatory Nathan Hathaway Other [employer] Other Start: 06-15-2023 Telephone encounter Nathan Hathaway [facility] Start: 06-08-2023 End: 06-08-2023 ambulatory Nathan Hathaway Other [employer] Other Start: 06-08-2023 Office outpatient vi sit 15 minutes Nathan Hathaway [facility] Start: 06-06-2023 Telephone encounter Juan Rico Hematology/Oncology Comment on above: Results Start: 06-04-2023 End: 06-04-2023 ambulatory Luis Mckenzie MD Work Phone: [employer] Other Comment on above: Abnormal SPEP (Prima ry Dx); Anemia, unspecified type; Neuropathy - (NOS); Heart disease Start: 06-04-2023 End: 06-04-2023 Patient encounter procedure Luis Mckenzie MD Work Phone: [place] Start: 06-04-2023 Telephone encounter Nathan Hathaway [facility] Start: 06-01-2023 End: 06-01-2023 ambulatory Nathan Hathaway Other [employer] Other Start: 06-01-2023 Telephone encounter Nathan Hathaway [facility] Start: 05-28-2023 End: 05-28-2023 ambulatory NATHAN Chinyere HATHAWAY Facility:[facility] Start: 05-25-2023 End: 05-25-2023 ambulatory Nathan Hathaway Other [employer] Other Start: 05-25-2023 Transitional care julito stark srvc 14 day discharge Nathan Hathaway [facility] Start: 05-17-2023 End: 05-18-2023 ambulatory Lj Ryan Facility:[facility] Start: 05-17-2023 End: 05-18-2023 Evaluation and management of inpatient DO Nathan Hathaway Work Phone: [facility] [place] [facility] Work Phone: Start: 05-17-2023 End: 05-18-2023 observation encounter DO Ntahan Hathaway Work Phone: [facility] Work Phone: Start: 05-16-2023 End: 05-16-2023 ambulatory Nathan Hathaway Other [employer] Other Start: 05-16-2023 Office outpatient vi sit 25 minutes Nathan Ball [facility] Start: 05-09-2023 End: 05-09-2023 ambulatory Nathan Hathaway Other [employer] Other Start: 05-09-2023 Office outpatient vi sit 25 minutes Nathan Ball [facility] Start: 05-09-2023 Telephone encounter Nathan Hathaway Work Phone: [facility] DO Work Phone: Start: 04-26-2023 End: 04-26-2023 ambulatory Nathan Ball Other [employer] Other Start: 04-26-2023 Office outpatient vi sit 25 minutes Nathan Ball [facility] Start: 04-26-2023 Telephone encounter Nathan Hathaway [facility] Start: 04-18-2023 End: 04-18-2023 ambulatory Nathan Hathaway Other [employer] Other Start: 04-18-2023 Office outpatient vi sit 25 minutes Nathan Ball [facility] Start: 04-18-2023 Telephone encounter Nathan Hathaway [facility] Start: 03-27-2023 End: 03-27-2023 ambulatory Nathan Isabela Other [employer] Other Start: 03-27-2023 Telephone encounter Nathan Hathaway [facility] Start: 03-15-2023 End: 03-15-2023 ambulatory Nathan [facility] Other [employer] Other Start: 03-15-2023 Office outpatient vi sit 25 minutes Nathan Hathaway [facility] Start: 03-09-2023 Telephone encounter Nathan Hathaway [facility] Start: 03-09-2023 SURGNON, Provider: Edinson Reyes, Status: Pen, Time: 10:00 AM Nathan Hathaway Work Phone: [facility] DO Work Phone: Start: 03-09-2023 End: 03-09-[address] Edinson Reyes [facility] [employer] Other Start: 03-09-2023 End: 03-09-2023 Admission to same day surgery center DO Nathan Ball Work Phone: [facility] Work Phone: Start: 03-08-2023 End: 03-08-2023 ambulatory Jonna Reyes Facility:[facility] Start: 03-08-2023 End: 03-08-2023 ambulatory DO Nathan Ball Work Phone: [facility] Work Phone: Start: 03-08-2023 End: 03-08-2023 Patient encounter procedure DO Nathan Ball Work Phone: [facility] Work Phone: Start: 03-07-2023 Office consultation new/estab patient 80 min Nathan Hathaway Work Phone: [facility] DO Work Phone: Start: 03-07-[address] Edinson Reyes Facility: Start: 03-05-2023 End: 03-05-2023 ambulatory Nathan Hathaway Other [employer] Other Start: 03-05-2023 Telephone encounter Nathan Hathaway [facility] Start: 03-01-2023 End: 03-02-[address] NATHAN HATHAWAY Facility:[facility] Start: 02-27-2023 End: 02-27-2023 ambulatory Nathan Hathaway Other [employer] Other Start: 02-27-2023 Telephone encounter Nathan Hathaway [facility] Start: 02-20-2023 End: 02-20-2023 ambulatory Nathan Hathaway Other [employer] Other Start: 02-20-2023 Telephone encounter Nathan Hathaway [facility] Start: 02-14-2023 End: 02-14-2023 ambulatory Nathan Hathaway Other [employer] Other Start: 02-14-2023 Office outpatient vi sit 25 minutes Nathan Hathaway [facility] Start: 02-14-2023 Telephone encounter Nathan Hathaway [facility] Start: 02-11-2023 End: 02-11-2023 ambulatory Nathan Hathaway Other [employer] Other Start: 02-11-2023 Telephone encounter Nathan Hathaway [facility] Start: 02-08-2023 End: 02-09-2023 Evaluation and management of inpatient DR NATHAN HATHAWAY Facility:[facility] Start: 02-02-2023 End: 02-02-2023 ambulatory Nathan Hathaway Other [employer] Other Start: 02-02-2023 Office outpatient vi sit 25 minutes Nathan Hathaway [facility] Start: 01-08-2023 End: 01-09-[address] NATHAN HATHAWAY Facility:[facility] Start: 12-21-2022 End: 12-21-2022 ambulatory Nathan Hathaway Other [employer] Other Start: 12-21-2022 Telephone encounter Nathan CHURCHILL Bessy Hathaway [facility] Start: 12-20-2022 End: 12-20-2022 ambulatory Nathan Hathaway Other [employer] Other Start: 12-20-2022 Telephone encounter Nathan Hathaway ZHAO Hathaway [facility] Start: 12-14-2022 End: 12-14-2022 ambulatory Nathan Hathaway Other [employer] Other Start: 12-14-2022 Patient encounter procedure Nathan Hathaway [facility] Start: 12-04-2022 End: 12-04-2022 ambulatory NAHTAN HATHAWAY Facility:[facility] Start: 12-04-2022 End: 12-04-2022 ambulatory Luis Mckenzie MD Work Phone: Hematology/Oncology Comment on above: Abnormal SPEP (Prima ry Dx); Neuropathy - (NOS); Lung nodules Start: 12-04-2022 End: 12-04-2022 Patient encounter procedure Luis Mckenzie MD Work Phone: [place] Start: 11-27-2022 End: 11-27-2022 ambulatory LUIS MCKENZIE Facility:[facility] Start: 11-23-2022 End: 11-23-2022 ambulatory Nathan Hathaway Other [employer] Other Start: 11-23-2022 Telephone encounter Nathan CHURCHILL Bessy Hathaway [facility] Start: 11-16-2022 End: 11-17-[address] NATHAN HATHAWAY Facility:[facility] Start: 11-14-2022 End: 11-14-2022 ambulatory Nathan Hathaway Other [employer] Other Start: 11-14-2022 Office outpatient vi sit 25 minutes [facility] Start: 09-11-2022 End: 09-12-[address] NATHAN HATHAWAY Facility:[facility] Start: 08-29-2022 Telephone encounter Juan Rico Hematology/Oncology Comment on above: Results Start: 05-29-2022 End: 05-29-2022 Visit (SP) Office Luis Mckenzie MD Work Phone: Hematology/Oncology Comment on above: Abnormal SPEP (Prima ry Dx); Neuropathy - (NOS); Disorder of adrenal gland (HCC); Lung nodules Start: 05-23-2022 Telephone encounter Luis hernandez MD Work Phone: Hematology/Oncology Comment on above: Lab Orders Start: 05-04-2022 End: 05-04-[address] NATHAN HATHAWAY Facility:[facility] Start: 12-13-2021 Adult health examination Lauri Hathaway Other [employer] Other Procedures Date Procedure Procedure Detail Performing Clinician Start: 10-17-2023 Basic metabolic 2000 panel - Serum or Plasma EDINSON REYES Start: 05-17-2023 CT angiography of thorax DO Nathan Hathaway Work Phone: Start: 05-17-2023 Duplex scan of lower limb veins DO Nathan Hathaway Work Phone: Start: 03-09-2023 CL Ivus Initial Vessel DO Nathan Hathaway Work Phone: Start: 03-09-2023 CL LHC & COR Angio DO B rob Hathaway Work Phone: Start: 03-09-2023 CL Stent 1st Vessel LAD VALERI DO Nathan Hathaway Work Phone: Start: 03-09-2023 CL Stent 1st Vessel RCA VALERI DO Nathan Hathaway Work Phone: Start: 05-29-2022 Adult depression scr eening assessment Luis Mckenzie MD Work Phone: Start: 11-22-2021 Adult depression scr eening assessment Luis Mckenzie MD Work Phone: Start: 11-11-2018 Screening for malign ant neoplasm of colon Nathan Hathaway Other Start: 10-12-2017 Screening for osteoporosis Nathan Hathaway Other Depression screening Suly Hathaway Other Hysterectomy Nathan Hathaway Work Phone: Screening for malign ant neoplasm of breast Nathan Hathaway Other Screening for malign ant neoplasm of breast Nathan Hathaway Other Total colonoscopy Nathan Hathaway Work Phone: Comment on above: 2012; Plan of Treatment Date Care Activity Detail Author Start: 06-04-2026 DIABETES SCREEN DIABETES SCREEN [facility] Start: 11-27-2025 DIABETES SCREEN DIABETES SCREEN [facility] Start: 08-24-2025 DIABETES SCREEN DIABETES SCREEN [facility] Start: 05-22-2025 DIABETES SCREEN DIABETES SCREEN [facility] Start: 09-18-2023 FUV, Provider: Edinson Reyes, Status: Pen, Time: 11:20 AM FUV, Provider: Edinson Reyes, Status: Pen, Time: 11:20 AM [facility] [employer] DO Work Phone: Start: 06-29-2023 Influenza vaccination INFLUENZA (#1) [facility] Start: 05-29-2023 Adult depression screening assessment DEPRESSION SCREENING [facility] Start: 05-29-2023 FUV, Provider: Edinson Reyes, Status: Pen, Time: 10:20 AM FUV, Provider: Edinson Reyes, Status: Pen, Time: 10:20 AM [facility] [employer] 250 DO Work Phone: Start: 05-18-2023 [facility] Start: 05-17-2023 Hospital admission [facility] Start: 03-09-2023 [facility] Start: 01-13-2023 COVID-19 VACCINE (6 - Pfizer series) COVID-19 VACCINE (6 - Pfizer series) [facility] Start: 11-22-2022 Adult depression screening assessment DEPRESSION SCREENING [facility] Start: 10-29-2022 ADVANCE DIRECTIVE DISCUSSION ADVANCE DIRECTIVE DISCUSSION [facility] Start: 10-29-2022 DEPRESSION ASSESSMENT DEPRESSION ASS ESSMENT [facility] Start: 06-29-2022 Influenza vaccination INFLUENZA (#1) [facility] Start: 03-25-2022 COVID-19 VACCINE (5 - Booster for Pfizer series) COVID-19 VACCINE (5 - Booster for Pfizer series) [facility] Start: 10-29-2021 ADVANCE DIRECTIVE DISCUSSION ADVANCE DIRECTIVE DISCUSSION [facility] Start: 10-29-2021 DEPRESSION ASSESSMENT [facility] Start: 07-16-2021 SHINGRIX VACCINE (2 of 2) SHINGRIX VACCINE (2 of 2) [facility] Start: 2007 BONE DENSITY BONE DENSITY [facility] Start: 2007 PNEUMOCOCCAL: 65+ (1 - PCV) PNEUMOCOCCAL: 65+ (1 - PCV) [facility] Start: 1961 Urine microalbumin profile DTAP,TDAP,TD (1 - Tdap) [facility] Comprehensive metabo lic 2000 panel - Serum or Plasma [facility] End: 06-28-2023 Ct abdomen & pelvis w/contrast material CT ABD/PEL W IVCON Radiology Routine Disorder of adrenal gland (HCC) 1 Occurrences starting 05/29/2022 until 06/28/2023 [facility] Work Phone: Comment on above: 1 Occurrences starti ng 05/29/2022 until 06/28/2023 End: 06-28-2023 CT CHEST W IVCON CT CHEST W IVCON Radiology Routine Lung nodules 1 Occurrences starting 05/29/2022 until 06/28/2023 [facility] Work Phone: Comment on above: 1 Occurrences starti ng 05/29/2022 until 06/28/2023 Patient Education [facility] Work Phone: Patient referral [facility] Work Phone: [facility] Immunizations Immunization Date Immunization Notes Care Provider Dara dvais 08-06-2023 influenza virus vaccine, unspecified formulation [facility] 08-06-2023 influenza, high dose seasonal, preservative-free Nathan Hathaway Other [employer] Other 09-15-2022 COVID-19 Pfizer (Pediatric) Nathan Hathaway Other [facility] 09-15-2022 Pfizer COVID-19 Vac Bivalent 30 MCG/0.3ML Intramuscular Suspension Nathan Hathaway Work Phone: [facility] 08-11-2022 influenza virus vaccine, split virus (incl. purified surface antigen) Nathan Hathaway Other [employer] [facility] [employer] Other 08-11-2022 influenza virus vaccine, unspecified formulation [facility] 01-28-2022 COVID-19 mRNA, Comirnaty (Pfizer) DO Nathan Hathaway Work Phone: [facility] 01-28-2022 COVID-19 Pfizer Nathan michelle Other [facility] 07-30-2021 COVID-19 vaccine, ag e 12+ yr ([facility]) Luis Mckenzie MD Work Phone: [facility] 07-22-2021 zoster vaccine, live Benjami n Isabela Other [facility] 07-19-2021 influenza, high-dose , quadrivalent vaccine (FLUZONE HIGH DOSE QUADRIVALENT) Luis Mckenzie MD Work Phone: [facility] 07-18-2021 influenza virus vaccine, split virus (incl. purified surface antigen) Nathan Hathaway Other [facility] [employer] Other 07-18-2021 influenza virus vaccine, unspecified formulation [facility] 05-21-2021 zoster vaccine recombinant Luis Mckenzie MD Work Phone: [facility] 05-21-2021 zoster vaccine, live Benjami n Isabela Other [facility] 12-18-2020 COVID-19 vaccine, ag e 12+ yr ([employer] [facility]) Luis Mckenzie MD Work Phone: [facility] 11-27-2020 COVID-19 Vaccine Moderna - Documentation Purposes Only Nathan Hathaway Other [facility] 11-27-2020 COVID-19 vaccine, ag e 12+ yr ([employer] PURPLE [employer]) Luis Mckenzie MD Work Phone: [facility] 08-11-2020 influenza virus vaccine, split virus (incl. purified surface antigen) Nathan Hathaway Other [facility] [employer] Other 08-11-2020 influenza virus vaccine, unspecified formulation [facility] 07-09-2019 Seasonal trivalent influenza vaccine, adjuvanted, preservative free Luis Mckenzie MD Work Phone: [facility] 08-13-2018 influenza virus vaccine, split virus (incl. purified surface antigen) Nathan Hathaway Other [facility] [employer] Other 08-13-2018 influenza virus vaccine, unspecified formulation [facility] 08-13-2018 Seasonal trivalent influenza vaccine, adjuvanted, preservative free Luis Mckenzie MD Work Phone: [facility] 08-03-2017 influenza virus vaccine, split virus (incl. purified surface antigen) Nathan Hathaway Other [facility] [employer] Other 08-03-2017 influenza virus vaccine, unspecified formulation [facility] 08-03-2017 influenza, high dose seasonal, preservative-free Luis Mckenzie MD Work Phone: [facility] 07-13-2016 influenza virus vaccine, split virus (incl. purified surface antigen) Nathan Hathaway Other [facility] [employer] Other 07-13-2016 influenza virus vaccine, unspecified formulation [facility] 09-13-2015 pneumococcal conjuga te vaccine, 13 valent Nathan Hathaway Other [facility] 08-17-2015 influenza virus vaccine, split virus (incl. purified surface antigen) Nathan Hathaway Other [facility] [employer] Other 08-17-2015 influenza virus vaccine, unspecified formulation [facility] 07-16-2014 tetanus and diphther ia toxoids, adsorbed, preservative free, for adult use (5 Lf of tetanus toxoid and 2 Lf of diphtheria toxoid) Nathan Hathaway Other [facility] 07-09-2013 tetanus and diphther ia toxoids, adsorbed, preservative free, for adult use (5 Lf of tetanus toxoid and 2 Lf of diphtheria toxoid) Nathan Hathaway Other [facility] 08-11-2010 pneumococcal polysaccharide vaccine, 23 valent Nathan Isabela Other [facility] Payers Date Payer Category Payer Self-pay 2020 Private Health Insurance [facility] AARP SUPPLEMENT [id number] 2020-Present [phone] [address] [place] [address] Indemnity [id number] 2020 Private Health Insurance [facility] AARP SUPPLEMENT [id number] 2020-Present [phone] [address] [place] [address] Indemnity [id number] 2007 Medicare MEDICARE MEDICAR E A AND B [id number] 2007-Present [phone] [place] [address] Medicare [id number] 2007 Medicare MEDICARE MEDICAR E A AND B [id number] 2007-Present [phone] [place] [address] Medicare [id number] 1959 Medicare [id number] 1959 Unknown [id number] 1942 Unknown [id number] [id number] .593 1942 Unknown [id number] [id number] .593 1942 Unknown [id number] [id number] .593 1942 Unknown [id number] [id number] .593 1942 Unknown [id number] [id number] .593 1942 Unknown [id number] 2.16.840.1.659381.3.579.2 .593 1942 Unknown [id number] 2.16.840.1.254751.3.579.2 .593 1942 Unknown [id number] 2.16.840.1.695768.3.579.2 .356 1942 Unknown [id number] [id number] .356 1942 Unknown [id number] [id number] .1244 Medicare Medicare Outpatient [id number] Unknown Unknown [id number] Unknown [id number] [id number] .531 Unknown [id number] [id number] .531 Unknown [id number] .531 Social History Date Type Detail Facility Start: 08-01-2021 End: 05-17-2023 Tobacco smoking status NHIS Ex-smoker [facility] History of tobacco use Cigarette Smoker [facility] Start: 08-01-2021 Tobacco use and exposure Smokeless tobacco non-user [facility] Start: 1940 Sex Assigned At Not on file [facility] Start: 05-12-2022 End: 05-29-2022 Exposure to SARS-CoV-2 (event) Not sure [facility] History of tobacco use Current smoker [facility] Start: 12-04-2022 End: 06-04-2023 Sex Assigned At [facility] Start: 12-04-2022 End: 06-04-2023 No illicit drug use No illicit drug use [facility] Comment on above: 2 coffees in am and 1 coffee at hs; 1997; Start: 1940 Sex Assigned At Female F [facility] Start: 06-04-2023 Alcohol intake Ex-drinker (finding) [facility] Adult Depression Screening Assessment 0 [facility] Start: 12-18-2023 Tobacco smoking stat us WVIS Never smoked tobacco (finding) [facility] Medical Equipment Procedure Code Equipment Code Equipment Origin al Text Equipment Identifier Dates CL STENT BARBARA FRONTIER 2.5 X 18 FDA Start: 03-09-2023 CL STENT BARBARA FRONTIER 4.0 X 15 FDA Start: 03-09-2023 CL STENT BARBARA FRONTIER 4.0 X 18 FDA Start: 03-09-2023 CL STENT BARBARA FRONTIER 2.5 X 18 FDA Start: 03-09-2023 CL STENT BARBARA FRONTIER 4.0 X 15 FDA Start: 03-09-2023 CL STENT BARBARA FRONTIER 4.0 X 18 FDA Start: 03-09-2023 Goals Date Patient Goal Desired Activity /State Functional Status Date Assessment Result Facility 05-18-2023 Functional status Patient at [facility] Work Phone: 03-09-2023 Functional status Patient at [facility] Work Phone: Mental Status Date Assessment Result Facility 05-18-2023 Cognitive function Cognitive Sta tus Patient at [facility] Work Phone: 03-09-2023 Cognitive function Cognitive Sta tus Patient at [facility] Work Phone: Clinical Notes 05-29-2022 to 11-27-2023 Note Date & Type Note Facility 11-27-2023 Evaluation note Encounter Date Diagnosis Assessment Notes Oct, Primary insomnia (ICD-10 - F51.01) [facility] Other 01-08-2024 NoteHNO ID: [id number] Author: PAOLO CASILLAS APRN.SENIOR NET ARCHITECT Service: ? Author Type: Nurse Practitioner Type: Progress Notes Filed: 11/07/2023 12:22 Note Text: PATIENT NAME: Lashaun Joaquin DATE: 11/05/2023 PRIMARY CARE PHYSICIAN: Dr. Nathan Hathaway OTHER PHYSICIANS: Dr. Reyes Portions of this encounter note have been copied from Dr. Luis Mckenzie's note from 06/04/2023 and has been updated where appropriate, and reflect my current medical decision making from today. CC: This is an 83 year old female with chronic neuropathy and arthritis, initially referred for evaluation of an abnormal SPEP, seen for scheduled follow-up. INTERIM HISTORY: Lashaun Joaquin returns for scheduled follow-up. Since her last visit there has been no significant medical changes. She denies cough, shortness of breath and other pulmonary complaints. She denies chest pain. No leg swelling. She denies fevers, chills, night sweats and signs/symptoms of infection. No bleeding or abnormal bruising. She denies dizziness and lightheadedness. Overall, she is doing well today and offers no new complaints. MEDICATIONS: Current Outpatient Medications Medication Sig carvedilol (COREG) 12.5 mg tablet TAKE 1 TABLET BY MOUTH TWICE A DAY WITH FOOD/MEAL clopidogrel (PLAVIX) 75 mg tablet TAKE 8 TABLETS BY MOUTH ON DAY ONE THEN TAKE 1 TABLET BY MOUTH DAILY furosemide (LASIX) 20 mg tablet potassium chloride (K-TAB) 10 mEq tablet irbesartan (AVAPRO) 150 mg tablet rOPINIRole (REQUIP) 0.[address] (PROTONIX) 40 mg tablet MULTI-VITAMIN ORAL Take by mouth. calcium carbonate (CALCIUM 600 ORAL) Take by mouth. aspirin 81 mg cap Take by mouth. pravastatin sodium (PRAVASTATIN ORAL) Take 40 mg by mouth every evening. losartan (COZAAR) 100 mg tablet Take 100 mg by mouth once daily. temazepam (RESTORIL) 15 mg Take by mouth at bedtime as needed. ALPRAZolam (XANAX) 0.25 mg tablet Take 0.25 mg by mouth three times daily as needed. GABAPENTIN ORAL Take 100 mg by mouth twice daily. No current facility-administered medications for this visit. ALLERGIES: ALLERGIES Allergen Reactions Allopurinol Unknown Amlodipine Unknown Bactrim [Sulfametho* Unknown Cheratussin Ac [Cod* Unknown Doxycycline Hyclate Unknown Duloxetine Unknown Iodine And Iodide C* Unknown 08/04/22 confirmed with patient that she is not allergic to CT contrast and has had it previously without issues or premeds. Levaquin [Levofloxa* Unknown Penicillins Unknown Pseudoephedrine Unknown Sulfa (Sulfonamide * Rash, Unknown Tetanus And Diphthe* Unknown Tetracyclines Unknown Trimethoprim Unknown Zofran [Ondansetron] Unknown PAST MEDICAL HISTORY: PAST MEDICAL HISTORY Diagnosis Date Cervical spondylosis Chronic venous insufficiency Dysuria-frequency syndrome Essential hypertension Estrogen deficiency OMAR (generalized anxiety disorder) GERD (gastroesophageal reflux disease) Hyperlipidemia type II Irritable bowel syndrome with diarrhea Lipoma of neck Malaise and fatigue Paresthesias Peripheral polyneuropathy Primary insomnia Ptosis of right eyelid Trochanteric bursitis of right hip Unsteady gait when walking PAST SURGICAL HISTORY: PAST SURGICAL HISTORY Procedure Laterality Date TOTAL ABD HYSTERECTOMY+BLAD REPR FAMILY HISTORY: FAMILY HISTORY Problem Relation Age of Onset Lymphoma Mother Cancer Father Leukemia Sister Multiple Sclerosis Sister Lung Cancer Brother Colon Cancer Brother Lung Cancer Brother SOCIAL HISTORY: Social History Tobacco Use Smoking status: Former Types: Cigarettes Smokeless tobacco: Never Vaping Use Vaping Use: Never used Substance Use Topics Alcohol use: Not Currently Drug use: Never REVIEW OF SYSTEMS: GENERAL: No weight loss, malaise or fevers. HEENT: Negative for frequent or significant headaches, No changes in hearing or vision, no nose bleeds or other nasal problems RESPIRATORY: Negative for cough, wheezing or shortness of breath. CARDIOVASCULAR: Negative for chest pain, leg swelling or palpitations. GI: Negative for abdominal discomfort, blood in stools or black stools or change in bowel habits : No history of dysuria, frequency or incontinence MUSCULOSKELETAL: Negative for: joint pain or swelling, back pain and muscle pain SKIN: Negative for lesions, rash, and itching. HEMATOLOGY/LYMPHOLOGY: Negative for prolonged bleeding, bruising easily or swollen nodes. NEURO: No history of headaches, syncope, paralysis, seizures or tremors PHYSICAL EXAM: BP (!) 111/40 Pulse (!) 57 Temp 36.4 ?C (97.5 ?F) (Temporal) Resp 16 Ht 166.4 cm (5' 5.51 ) Wt 87.6 kg (193 lb 2 oz) SpO2 95% BMI 31.64 kg/m? ECOG 1 Exam limited to gross visualization where appropriate. Gen.: This is an age-appropriate patient in no acute distress. Head: Appears atraumatic with no visible lesions. Eyes: Pupils equally round and reactive to light, ext (more content not included)...[facility]01-05-2024 Evaluation note* Encounter Date Diagnosis Assessment Notes Treatment Notes Treatment Clinical Notes Oct, ASHD (arteriosclerotic heart disease) (ICD-10 - I25.10) This patient is stable without activity related CP, dyspnea or lightheadedness. They are instructed to continue exercise and AHA diet plan. Continue secondary prevention measures. Oct, Chronic diastolic heart failure (ICD-10 - I50.32) Echocardiogram: 2022 - LVEF 65% w/ diastolic dysfunction - Normal RV size/function, RVSP 48 - mild to moderate MR, mild TR - Moderate pulmonary hypertension. Instructed on low salt diet, exercise and daily weights. Instructed to notify office for any unexpected weight gain > 3lbs and/or increased dyspnea, difficulty breathing during sleep, worsening lower extremity swelling, chest pain or lightheadedness. Reviewed GDMT w/ beta blockers, BRAD/ARB/ARNI, MRA and SGLT-2 Oct, Primary hypertension (ICD-10 - I10) This patient is instructed to consume a healthy, low-fat, low-salt diet. They are also encouraged to continue exercise to achieve/maintain a normal BMI. Oct, Simple chronic bronchitis (ICD-10 - J41.0) Mucolytics as needed. EDEL as needed for cough, SOB and wheezing. No ER visits for AE UTD w/ vaccines Oct, Elevated cholesterol (ICD-10 - E78.00) Instructed on diet and exercise with continued statin therapy.Discussed the beneficial effects of lowering cholesterol in reducing the risk for cerebrovascular and cardiovascular disease. Oct, Pulmonary hypertension (ICD-10 - I27.20) Continue to monitor fluid status. Daily weights w/ additional doses of diuretic as needed. Checking BMP routinely. Oct, Restless leg syndrom e (ICD-10 - G25.81) Improved w/ Gabapentin. Gentle stretching exercises prior to bedtime Support stockings during the daytime Oct, Paresthesias (ICD-10 - R20.2) Symptoms tolerable w/ Gabapentin. No additional treatment necessary Keep active, daily walks, stretching Oct, Chronic venous insufficiency (ICD-10 - I87.2) Avoid salt and elevate lower extremities, support stockings, inspect legs and feet daily for blisters and ulcerations. Oct, Gastroesophageal reflux disease with esophagitis without hemorrhage (ICD-10 - K21.00) Avoid lying flat after eating. Avoid eating 2 hours prior to bedtime. Smaller, frequent meals may be better tolerated.Weight loss if overweight.PPI with any heartburn.Monitor for dysphagia. Oct, Nicotine dependence, cigarettes, in remission (ICD-10 - F17.211) Continue abstinence [facility] Other 12-05-2023 Evaluation note* Encounter Date Diagnosis Assessment Notes Treatment Notes Treatment Clinical Notes Sep, Chronic obstructive pulmonary disease with (acute) exacerbation (ICD-10 - J44.1) Stopped Prednisone due to ADR. Instructed to use EDEL 2-3x daily - can limit to 1 puff to avoid side effects Push fluid, increase activity, cough/deep breathing exercises. Sep, Swollen throat (ICD-10 - R22.1) Resolved w/ Benadryl, Prednisone and stopping Zpak. Discussed symptoms, vague but claims swelling in oral mucosa, lips and eyes. 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 Reassured that will gradually improve Instructed to use EDEL daily. Sep, Chronic cough (ICD-10 - R05.3) Sep, Chronic HFrEF (heart failure with reduced ejection fraction) (ICD-10 - I50.22) Instructed on low salt diet, exercise and daily weights. Instructed to notify office for any unexpected weight gain > 3lbs and/or increased dyspnea, difficulty breathing during sleep, worsening lower extremity swelling, chest pain or lightheadedness. Reviewed GDMT w/ beta blockers, BRAD/ARB/ARNI, MRA and SGLT-2 Daily weights Using diuretic bid to maintain steady weight Denies orthopnea, PND or increasing edema Sep, ASHD (arteriosclerotic heart disease) (ICD-10 - I25.10) This patient is stable without activity related CP, dyspnea or lightheadedness. They are instructed to continue exercise and AHA diet plan. Continue secondary prevention measures. Sep, Restless leg syndrome (ICD-10 - G25.81) Last night w/ increased symptoms. No change in medications, continue Gabapentin. Sep, Chronic venous insufficiency (ICD-10 - I87.2) Avoid salt and elevate lower extremities, support stockings, inspect legs and feet daily for blisters and ulcerations. [facility] Other 11-29-2023 Evaluation note* Encounter Date Diagnosis Assessment Notes Treatment Notes Treatment Clinical Notes Aug, Chronic venous insufficiency (ICD-10 - I87.2) [facility] Other 11-24-2023 Evaluation note* Encounter Date Diagnosis Assessment Notes Treatment Notes Treatment Clinical Notes Aug, Subacute cough (ICD-10 - R05.2) Aug, Dyspnea on exertion (ICD-10 - R06.09) [facility] Other 11-20-2023 Evaluation note* Encounter Date Diagnosis Assessment Notes Treatment Notes Treatment Clinical Notes Aug, Chronic venous insufficiency (ICD-10 - I87.2) [facility] Other 11-16-2023 Evaluation note* Encounter Date Diagnosis Assessment Notes Treatment Notes Treatment Clinical Notes Aug, Chronic venous insufficiency (ICD-10 - I87.2) [facility] Other 11-14-2023 Evaluation note* Encounter Date Diagnosis Assessment Notes Treatment Notes Treatment Clinical Notes Aug, Acute bronchitis due to other specified organisms (ICD-10 - J20.8) Instructed to use Robitussin or Mucinex for cough, saline or Flonase NS for congestion, Tylenol for pain and fever. Aug, Chronic obstructive pulmonary disease with (acute) exacerbation (ICD-10 - J44.1) Begin using EDEL as needed to mobilize secretions. [facility] Other 10-19-2023 Evaluation note* Encounter Date Diagnosis Assessment Notes Treatment Notes Treatment Clinical Notes Jul, Aphthous ulcer (ICD-10 - K12.0) [facility] Other 09-20-2023 Evaluation note* Encounter Date Diagnosis Assessment Notes Treatment Notes Treatment Clinical Notes Jun, Dysuria (ICD-10 - R30.0) [facility] Other 09-19-2023 Evaluation note* Encounter Date Diagnosis Assessment Notes Treatment Notes Treatment Clinical Notes Jun, Dysuria (ICD-10 - R30.0) [facility] Other 08-28-2023 Evaluation note* Encounter Date Diagnosis Assessment Notes Treatment Notes Treatment Clinical Notes May, Chronic venous insufficiency (ICD-10 - I87.2) [facility] Other 08-24-2023 Evaluation note* Encounter Date Diagnosis Assessment Notes Treatment Notes Treatment Clinical Notes May, Primary insomnia (ICD-10 - F51.01) [facility] Other 08-21-2023 Evaluation note* Encounter Date Diagnosis Assessment Notes Treatment Notes Treatment Clinical Notes May, Diastolic hypertension (ICD-10 - I10) [facility] Other 08-18-2023 Evaluation note* Encounter Date Diagnosis Assessment Notes Treatment Notes Treatment Clinical Notes May, Primary hypertension (ICD-10 - I10) [facility] Other 08-18-2023 Evaluation note* Encounter Date Diagnosis Assessment Notes Treatment Notes Treatment Clinical Notes May, Diastolic hypertension (ICD-10 - I10) [facility] Other 08-11-2023 Evaluation note* Encounter Date Diagnosis Assessment Notes Treatment Notes Treatment Clinical Notes May, ASHD (arteriosclerotic heart disease) (ICD-10 - I25.10) This patient is stable without activity related CP, dyspnea or lightheadedness. They are instructed to continue exercise and AHA diet plan. May, Chronic HFrEF (heart failure with reduced ejection fraction) (ICD-10 - I50.22) Instructed on low salt diet, exercise and daily weights. Instructed to notify office for any unexpected weight gain > 3lbs and/or increased dyspnea, difficulty breathing during sleep, worsening lower extremity swelling, chest pain or lightheadedness. Reviewed GDMT w/ beta blockers, BRAD/ARB/ARNI, MRA and SGLT-2 Stressed importance to daily weights. Dry weight is 198 at home. - wt > 200 requires additional diuretic later that same day May, Primary hypertension (ICD-10 - I10) This patient is instructed to consume a healthy, low-fat, low-salt diet. They are also encouraged to continue exercise to achieve/maintain a normal BMI. May, Chronic venous insufficiency (ICD-10 - I87.2) Avoid salt and elevate lower extremities, support stockings, inspect legs and feet daily for blisters and ulcerations. [facility] Other 08-09-2023 Miscellaneous Notes* Telephone Encounter - Juan Manzanares RN - 06/06/2023 2:11 PM EDT Pt aware of BR message and agrees to POC. She states she feels good and will see us back in August. Juan Manzanares RN * Telephone Encounter - Juan Manzanares RN - 06/06/2023 2:11 PM EDT ----- Message from Luis Mckenzie MD sent at 06/06/2023 12:27 PM EDT ----- Please inform the patient that her iron studies are normal, but sed rate elevated. I suspect her anemia may be from chronic inflammation. Typically I would refer to rheumatology, and they might startsteroids. However, I would recommend she hold off on any additional medical treatments until her heart disease is stabilized. I will see her back as scheduled with repeat labs. We can further discuss then. [facility] NoteHNO ID: [id number] Author: Luis Mckenzie MD Service: ? Author Type: Physician Type: Progress Notes Filed: 06/06/2023 6:33 AM Note Text: PATIENT NAME: Lashaun Joaquin DATE: 06/04/2023 PRIMARY CARE PHYSICIAN: Nathan Hathaway, OTHER PHYSICIANS: Dr. Reyes Portions of this encounter note have been copied from my note from 12/04/2022 and has been updated where appropriate, and reflect my current medical decision making from today. CC: This is an 82 year old female with chronic neuropathy and arthritis, initially referred for evaluation of an abnormal SPEP, seen for scheduled follow-up. INTERIM HISTORY: Since the patient's last visit here she developed severe shortness of breath and was hospitalized at [facility] and treated for suspected pneumonia. Apparently it was later felt she had heart disease, and cardiac catheterization revealed severe coronary artery disease. She subsequently underwent stent placement at [facility]. Apparently her shortness of breath persisted, and she was rehospitalized with CHF. She improved with diuresis. On follow-up today she has severe weakness and continued shortness of breath. No chest pains. No fevers or signs of infection. Her neuropathy is unchanged. No signs of bleeding. MEDICATIONS: Current Outpatient Medications Medication Sig irbesartan (AVAPRO) 150 mg tablet rOPINIRole (REQUIP) 0.[address] (PROTONIX) 40 mg tablet MULTI-VITAMIN ORAL Take by mouth. calcium carbonate (CALCIUM 600 ORAL) Take by mouth. aspirin 81 mg cap Take by mouth. pravastatin sodium (PRAVASTATIN ORAL) Take 40 mg by mouth every evening. losartan (COZAAR) 100 mg tablet Take 100 mg by mouth once daily. temazepam (RESTORIL) 15 mg Take by mouth at bedtime as needed. ALPRAZolam (XANAX) 0.25 mg tablet Take 0.25 mg by mouth three times daily as needed. GABAPENTIN ORAL Take 100 mg by mouth twice daily. No current facility-administered medications for this visit. ALLERGIES: ALLERGIES Allergen Reactions Amlodipine Unknown Bactrim [Sulfametho* Unknown Cheratussin Ac [Cod* Unknown Doxycycline Hyclate Unknown Duloxetine Unknown Iodine And Iodide C* Unknown 08/04/22 confirmed with patient that she is not allergic to CT contrast and has had it previously without issues or premeds. Levaquin [Levofloxa* Unknown Penicillins Unknown Tetanus And Diphthe* Unknown Tetracyclines Unknown Zofran [Ondansetron] Unknown PAST MEDICAL HISTORY: PAST MEDICAL HISTORY Diagnosis Date Cervical spondylosis Chronic venous insufficiency Dysuria-frequency syndrome Essential hypertension Estrogen deficiency OMAR (generalized anxiety disorder) GERD (gastroesophageal reflux disease) Hyperlipidemia type II Irritable bowel syndrome with diarrhea Lipoma of neck Malaise and fatigue Paresthesias Peripheral polyneuropathy Primary insomnia Ptosis of right eyelid Trochanteric bursitis of right hip Unsteady gait when walking PAST SURGICAL HISTORY: PAST SURGICAL HISTORY Procedure Laterality Date TOTAL ABD HYSTERECTOMY+BLAD REPR FAMILY HISTORY: FAMILY HISTORY Problem Relation Age of Onset Lymphoma Mother Cancer Father Leukemia Sister Multiple Sclerosis Sister Lung Cancer Brother Colon Cancer Brother Lung Cancer Brother SOCIAL HISTORY: Social History Tobacco Use Smoking status: Former Types: Cigarettes Smokeless tobacco: Never Vaping Use Vaping Use: Never used Substance Use Topics Drug use: Never COMPLETE REVIEW OF SYSTEMS: CONSTITUTION: Negative for pain, fatigue, weight loss, or appetite loss. EENT: Negative for mouth soreness, antibiotics use, epistaxis, visual problems, neck or facial swelling, fever/chills, bleeding gums, or hearing loss. CV: Negative for edema, calf swelling, palpitations, or chest pain. RESPIRATORY: Negative for cough, SOB, hemoptysis, or wheezing. GI: Negative for nausea/vomiting, heartburn, vomiting blood, dysphasia, diarrhea, blood in stool, constipation, early satiety, PICA, vegetarian, poor nutrition, abdominal fullness, or abdominal pain. NEUROLOGICAL: Negative for numbness/tingling, dizziness, gait disturbance, headache, speech disturbance, tremor, hemiparesis/sensory loss, or change in mental status. MUSCULOSKELETAL: Negative for joint pain, joint swelling, or proximal muscle weakness. SKIN: Negative for hair loss, bruising, nail changes, rash, itching, pallor, or jaundice. ENDO/URO: Negative for hot flashes, cold or heat intolerance, urinary frequency, urinary hesitancy, menorrhagia, or hematuria. PSYCH: Negative for anxiety, depression, or other. PHYSICAL EXAM: BP 155/58 Pulse (!) 56 Temp 36.5 ?C (97.7 ?F) (Temporal) Resp 18 Wt 92 kg (202 lb 12.8 oz) SpO2 98% BMI 33.22 kg/m? GENERAL EXAM: Well developed/well nourished; in no acute distress. SKIN: Negative for lesions, rashes, or ulcers on the upper and lower extremities and face. Ne (more content not included)...[facility]08-07-2023 History of Present illness Narrative* Luis Mckenzie MD - 06/04/2023 7:38 AM EDT PATIENT NAME: Lashaun Joaquin DATE: 06/04/2023 PRIMARY CARE PHYSICIAN: Nathan Hathaway, OTHER PHYSICIANS: Dr. Reyes Portions of this encounter note have been copied from my note from 12/04/2022 and has been updated where appropriate, and reflect my current medical decision making from today. CC: This is an 82 year old female with chronic neuropathy and arthritis, initially referred for evaluation of an abnormal SPEP, seen for scheduled follow-up. INTERIM HISTORY: Since the patient's last visit here she developed severe shortness of breath and was hospitalized at [facility] and treated for suspected pneumonia. Apparently it was later felt she had heart disease, and cardiac catheterization revealed severe coronary artery disease. She dumont bsequently underwent stent placement at [facility]. Apparently her shortness of breath persisted, and shewas rehospitalized with CHF. She improved with diuresis. On follow-up today she has severe weakness and continued shortness of breath. No chest pains. No fevers or signs of infection. Her neuropathy is unchanged. No signs of bleeding. MEDICATIONS: Current Outpatient Medications Medication Sig irbesartan (AVAPRO) 150 mg tablet rOPINIRole (REQUIP) 0.[address] (PROTONIX) 40 mg tablet MULTI-VITAMIN ORAL Take by mouth. calcium carbonate (CALCIUM 600 ORAL) Take by mouth. aspirin 81 mg cap Take by mouth. pravastatin sodium (PRAVASTATIN ORAL) Take 40 mg by mouth every evening. losartan (COZAAR) 100 mg tablet Take 100 mg by mouth once daily. temazepam (RESTORIL) 15 mg Take by mouth at bedtime as needed. ALPRAZolam (XANAX) 0.25 mg tablet Take 0.25 mg by mouth three times daily as needed. GABAPENTIN ORAL Take 100 mg by mouth twice daily. No current facility-administered medications for this visit. ALLERGIES: ALLERGIES Allergen Reactions Amlodipine Unknown Bactrim [Sulfametho* Unknown Cheratussin Ac [Cod* Unknown Doxycycline Hyclate Unknown Duloxetine Unknown Iodine And Iodide C* Unknown 08/04/22 confirmed with patient that she is not allergic to CT contrast and has had it previously without issues or premeds. Levaquin [Levofloxa* Unknown Penicillins Unknown Tetanus And Diphthe* Unknown Tetracyclines Unknown Zofran [Ondansetron] Unknown PAST MEDICAL HISTORY: PAST MEDICAL HISTORY Diagnosis Date Cervical spondylosis Chronic venous insufficiency Dysuria-frequency syndrome Essential hypertension Estrogen deficiency OMAR (generalized anxiety disorder) GERD (gastroesophageal reflux disease) Hyperlipidemia type II Irritable bowel syndrome with diarrhea Lipoma of neck Malaise and fatigue Paresthesias Peripheral polyneuropathy Primary insomnia Ptosis of right eyelid Trochanteric bursitis of right hip Unsteady gait when walking PAST SURGICAL HISTORY: PAST SURGICAL HISTORY Procedure Laterality Date TOTAL ABD HYSTERECTOMY+BLAD REPR FAMILY HISTORY: FAMILY HISTORY Problem Relation Age of Onset Lymphoma Mother Cancer Father Leukemia Sister Multiple Sclerosis Sister Lung Cancer Brother Colon Cancer Brother Lung Cancer Brother SOCIAL HISTORY: Social History Tobacco Use Smoking status: Former Types: Cigarettes Smokeless tobacco: Never Vaping Use Vaping Use: Never used Substance Use Topics Drug use: Never COMPLETE REVIEW OF SYSTEMS: CONSTITUTION: Negative for pain, fatigue, weight loss, or appetite loss. EENT: Negative for mouth soreness, antibiotics use, epistaxis, visual problems, neck or facial swelling, fever/chills, bleeding gums, or hearing loss. CV: Negative for edema, calf swelling, palpitations, or chest pain. RESPIRATORY: Negative for cough, SOB, hemoptysis, or wheezing. GI: Negative for nausea/vomiting, heartburn, vomiting blood, dysphasia, diarrhea, blood in stool, constipation, early satiety, PICA, vegetarian, poor nutrition, abdominal fullness, or abdominal pain. NEUROLOGICAL: Negative for numbness/tingling, dizziness, gait disturbance, headache, speech disturbance, tremor, hemiparesis/sensory loss, or change in mental status. MUSCULOSKELETAL: Negative for joint pain, joint swelling, or proximal muscle weakness. SKIN: Negative for hair loss, bruising, nail changes, rash, itching, pallor, or jaundice. ENDO/URO: Negative for hot flashes, cold or heat intolerance, urinary frequency, urinary hesitancy,menorrhagia, or hematuria. PSYCH: Negative for anxiety, depression, or other. PHYSICAL EXAM: BP 155/58 Pulse (!) 56 Temp 36.5 C (97.7 F) (Temporal) Resp 18 Wt 92 kg (202lb 12.8 oz) SpO2 98% BMI 33.22 kg/m GENERAL EXAM: Well developed/well nourished; in no acute distress. SKIN: Negative for lesions, rashes, or ulcers on the upper and lower extremities and face. Negativefor palpations/nodules, purpura, and ecchymosis. EENT: Negative for conjunctiva, mucosal pallor, JVD, LAP, thyromegaly, and glossitis. Supple & PERRL. EXTREMITIES: Negative for cyanosis, clubbing, and crepitus. LUNGS: Negative to auscultation, respiratory effort, and percussion. CARDIOVASCULAR: Regular rate. Negative for murmurs/S3S4/abnormal sounds, edema, and carotid bruits. ABDOMEN: Negative for masses, hernia, and spleen/liver abnormalities. RECTAL: Not done PSYCHIATRIC: Negative for mood/affect changes, recent & remote memory changes, and judgement and insight. NEUROLOGICAL: Alert, oriented x person, place, time. Cranial nerves 2-12 intact. Sensory for pain, light touch, vibration intact on all 4 extremities. Reflexes symmetric for biceps/brachioradial/patella/achilles. MUSCULOSKELETAL: Thickened tissue in the right supraclavicular fossa, possible lymphadenopathy. Slight tenderness but no redness. RADIOLOGIC DATA: 08/28/2022 CT chest IMPRESSION: 1. Interval resolution of previously described right upper lobe nodular opacities, likely infectious/inflammatory in nature. 2. Otherwise stable CT of the chest. Stable reticulonodular opacities most prominent in the bilateral upper lobes. Other scattered nodular opacities measuring up to 3 mm, stable. 3. No evidence of bulky intrathoracic adenopathy. 08/28/2022 CT abdomen/pelvis IMPRESSION: 1. Stable CT of the abdomen and pelvis. Stable left adrenal gland nodule. Consider further evaluation with adrenal mass protocol CT. 2. No evidence of abdominal or pelvic lymphadenopathy. 3. Sigmoid diverticulosis without evidence of diverticulitis. 08/24/2021 CT chest IMPRESSION: 1. Bilateral, patchy reticulonodular and groundglass opacities are identified within upper lobe predominance, likely infectious/inflammatory in nature. Correlation with follow-up examinations is recommended to assess for clearing. 2. A few scattered 5 mm or less nodules are identified, as above. Test on follow-up studies. 3. No substantial intrathoracic adenopathy is identified. 08/24/2021 CT abdomen/pelvis IMPRESSION: 1. Indeterminate 1.1 cm left adrenal gland nodule. Suggest correlation with follow-up examinations to assess for stability. Alternatively, for immediate further evaluation, an MRI examination of the adrenal glands would be recommended. 2. Sigmoid diverticulosis, without CT evidence for acute diverticulitis. LABS: Hemoglobin (g/dL) Date Value 06/04/2023 9.2 11/15/2021 11.5 Hematocrit (%) Date Value 06/04/2023 28.8 11/15/2021 36.1 WBC (k/uL) Date Value 06/04/2023 4.78 11/15/2021 5.96 Platelet Count (k/uL) Date Value 06/04/2023 274 11/15/2021 274 ASSESSMENT/PLAN: 1. Abnormal SPEP - ICD9: 790.99, ICD10: R77.8 (primary diagnosis) The patient presented in June 2021 with complaints of numbness and tingling sensation of her legs consistent with neuropathy. Initial labs 07/06/2021 revealed an abnormal SPEP with an elevated IgMof 340 and elevated serum free kappa with a kappa/lambda ratio 3.2. Her IgG and IgA levels were normal, and no M spike was observed. Other than neuropathy the patient had no suspicious systemic symptoms, and observation was recommended. Follow-up SPEP has remained stable with slight elevation of the IgM but otherwise normal immunoglobulin levels and no M spike. However, additional labs have revealed a markedly elevated sed rate consistent with chronic inflammation. Most likely the patient has an underlying rheumatologic condition causing an elevated IgM and sed rate. She has no evidence of myeloma or other primary bone marrow disorder. We will continue to monitor. I will see her back in 3 months. Rheumatologic evaluation will be considered based on clinical symptoms. 2. Neuropathy - (NOS) - ICD9: 355.9, ICD10: G62.9 Stable on current medications, continue management per PCP. 3. Primary hypertension - ICD9: 401.9, ICD10: I10 Stable on current medications, continue management per PCP. 4. Hyperlipidemia - ICD9: 272.4, ICD10: E78.5 Stable on current medications, continue management per PCP. 5. Heart disease - ICD9: 429.9, ICD10: I51.06 Mar 2023 the patient developed severe shortness of breath [facility]. Apparently it was later felt she had heart disease, and cardiac catheterization revealed severe coronary artery disease. She subsequently underwent stent placement at [facility]. April 2023 she developed severe shortness of breath and was hospitalized at [facility] 05/17/2023with CHF. She improved with diuresis but has ongoing dyspnea. Continue management per PCP/cardiology. 6. Anemia - ICD9: 285.9, ICD10: D64.9 Labs April 2023 revealed normocytic anemia with a hemoglobin approximately 9. Differential diagnosisincludes iron deficiency, B12 deficiency, folate deficiency, anemia chronic disease , or a bone marrow disorder. Will check additional labs and further evaluate as indicated. Luis Mckenzie MD CC: Dr. Reyes [facility]* Encounter Date Diagnosis Assessment Notes Treatment Notes Treatment Clinical Notes Apr, ASHD (arteriosclerotic heart disease) (ICD-10 - I25.10) This patient is stable without activity related CP, dyspnea or lightheadedness. They are instructed to continue exercise and AHA diet plan. Apr, Acute on chronic HFrEF (heart failure with reduced ejection fraction) (ICD-10 - I50.23) Maintain optimal control of BP and fluid status - daily weights - decrease BB to 3.125mg bid - increase BRAD to 150 bid Counseled on cause and treatment of CHF Systolic/Diastolic dysfunction contributing Instructed to increase Lasix to qd w/ any weight gain Apr, Primary hypertension (ICD-10 - I10) This patient is instructed to consume a healthy, low-fat, low-salt diet. They are also encouraged to continue exercise to achieve/maintain a normal BMI. Apr, Simple chronic bronchitis (ICD-10 - J41.0) Instructed to use LABA/ICS bid and hold EDEL. Wheezing at night could be cardiac asthma, difficult to determine. Mucinex as needed. Apr, Chronic venous insufficiency (ICD-10 - I87.2) Avoid salt and elevate lower extremities, support stockings, inspect legs and feet daily for blisters and ulcerations. Apr, Other obesity due to excess calories (ICD-10 - E66.09) This patient has been instructed on a low-fat, high-fiber diet. They are instructed to reduce calories, portion sizes and snacks. It is recommended that they exercise for 30 minutes, 3-5 times weekly. Apr, Body mass index [BMI] 32.0-32.9, adult (ICD-10 - Z68.32) Apr, Nicotine dependence, cigarettes, in remission (ICD-10 - F17.211) Populr Other 07-21-2023 Discharge summary Author Lj Ryan [facility] May 18, 2023 11:44am Note Date/Time May 18, 2023 11:4 4am [facility] [address] [place] [address] Discharge Summary Signed Patient: Lashaun Joaquin MR#: [id number] : 1940 Acct:[id number] Age/Sex: 82 / F Adm Date: 3 Loc: Room: [address] [place] [address]: Lj Ryan DO Copies to: DO Lj Prado, DO~ Providers Date of Discharge: 05/18/23 Discharging Provider: Lj Ryan Primary Care Provider: Nathan Hathaway Discharge Diagnosis (1) Hypertensive emergency: (2) Flash pulmonary edema: Final Diagnosis Final Discharge Diagnosis: As above Summary Hospital Course Hospital course: Miss Joaquin is a 82-year-old female who present to hospital the afternoon of with a chief complaint of shortness of breath, leg edema, and increased weight over the past couple days. Continues around the hospital there is some concerns of PE, a CT PE was performed which was negative for any acute process including pulmonary embolism. She was hypoxic on room air, she was started on nitroglycerin patch as her blood pressure is elevated above 200 for numerous checks. She did receive a dose of IV Lasix 40 mg in the ED, she had a good response to this and diagnosed her self start feeling a little better in regardsto her breathing. She was admitted to the hospital for further diuresis. She did receive another 40 mg dose the evening of May 17 followed by 20 mg of IV Lasix the morning of May 18. The patient had adequate response to this despitethere being no eyes nose tract in the computer. Her lower extremity edema subsided. Due to her increased blood pressure, I did increase her carvedilol from 3.125 mg twice daily to 25 mg twice daily, her blood pressure was appropriately controlled with this dose. The morning of May 18 2 pressure 132/75, she had no lower extreme edema and she was saturating well on room air. I did discharge her that afternoon with the dose change of carvedilol, this was explained to the patient as well as returning to take her Lasix every other day as initially prescribed by her primary care physician. Also told her to track her weight, her goal weight is 195 pounds and if she notices it trending up thatit is appropriate to take in excess of Lasix. Her daughter was in the room initially on admission and I also explained this method to her and she understood. Time Spent with Patient Time spent providing/coordinating discharge services (# min): 25 Diagnostic Studies Completed and Pending Studies Pending studies at discharge: 05/19/23 05:00 Basic Metabolic Panel [CHEM] IN AM Magnesium [CHEM] IN AM 05/20/23 05:00 Basic Metabolic Panel [CHEM] IN AM Magnesium [CHEM] IN AM 05/21/23 05:00 Basic Metabolic Panel [CHEM] IN AM Magnesium [CHEM] IN AM 05/22/23 05:00 Basic Metabolic Panel [CHEM] IN AM Magnesium [CHEM] IN AM Labs on day of discharge: 05/18/23 05:58: PHA Creatinine Clear 38.04, Sodium 142, Potassium 4.0, Chloride 103, Carbon Dioxide 30.5, Anion Gap 12.5, BUN 21, Creatinine 1.37 H, Est GFR (CKD- EPI) 39.034, Glucose 94, Calcium 8.9, Phosphorus 5.3, Magnesium 2.1 05/18/23 05:58: Corrected WBC 6.0, Uncorrected WBC Count 6.0, RBC 3.21 L, Hgb 9.7 L, Hct 28.2 L, MCV 87.7, MCH 30.2, MCHC 34.4, RDW 14.1, Plt Count 314, MPV 7.8, Neut % (Auto) 73.6, Lymph % (Auto) 15.1, Burke % (Auto) 8.7, Eos % (Auto) 1.9, Baso % (Auto) 0.7, Nucleat RBC Rel Count 0.1, Neut # (Auto) 4.4, Lymph # (Auto) 0.9 L, Burke # (Auto) 0.5, Eos # (Auto) 0.1, Baso # (Auto) 0.0 Exam Physical Exam Vital Signs: Temp Pulse Resp BP Pulse Ox O2 Del Method O2 Flow Rate 97.7 F 55 L 16 132/75 95 Room Air 1.5 05/18/23 08:00 05/18/23 08:00 05/18/23 08:00 05/18/23 08:00 05/18/23 08:00 05/18/23 08:00 05/17/23 20:00 Narrative: General: Awake alert, no acute distress HEENT: head atraumatic, normocephalic, moist mucous membranes Neck: supple no masses, no lymphadenopathy CVS: regular rate and rhythm, no murmurs or gallops Respiratory: clear to auscultation bilaterally, no wheezing or crackles, symmetric expansion GI: soft, nondistended, nontender, positive bowel sounds with no organomegaly Extremity: moves all extremities, no restrictions of movements, no calf tenderness, no edema Neuro: AOx3, CN II-VII intact. Moves all extremities in all planes of motion. Skin: dry, intact no rashes or lesions Discharge Plan Discharge Plan Additional Instructions: Please take your Lasix every other day as originally prescribed, your goal weight is 195 pounds. If you notice your weight trending up and gets above 200, please take an extra dose as your primary care physician instructed you to. Your new dose of carvedilol or Coreg is 12.5 mg twice daily, if you notice yourself then lightheaded or have a blood pressure less than 120 systolic at home, please do not take and call your primary care physician, this dose worked well to control your blood pressure in the hospital. Instructions: Heart Failure, Adult (DC), Furosemide Prescriptions: Continued pravastatin 40 mg tablet 40 mg PO QPM potassium chloride 10 mEq tablet extended release 10 meq PO Q3W Rx Instructions: 3 times a week on even days aspirin 81 mg Tablet,Delayed Release (Dr/Ec) 81 mg PO QAM alprazolam 0.25 mg tablet 0.25 mg PO TID PRN (Reason: Anxiety) temazepam 15 mg capsule 15 mg PO QHS pantoprazole 40 mg tablet,delayed release (DR/EC) 40 mg PO QAM gabapentin 100 mg capsule 100 mg PO BID Rx Instructions: may take tid if needed irbesartan 150 mg tablet 150 mg PO QAM clopidogrel 75 mg tablet 75 mg PO DAILY Patient Comments: TAKE 8 TABLETS BY MOUTH ON DAY ONE THEN TAKE 1 TABLET BY MOUTH DAILY fluticasone propion-salmeterol [Advair HFA] 115-21 mcg/actuation HFA aerosol inhaler 2 puff INHALATION BID furosemide 20 mg tablet 20 mg PO Q OTHER DAY Qty: 30 0RF Rx Instructions: on even days 3 times a week. Goal weight is 195lbs, if you notice your weighttrending up please take an extra dose as instructed by your PCP Changed carvedilol 3.125 mg tablet 12.5 mg PO BID Qty: 30 0RF Patient Comments: TAKE 1 TABLET BY MOUTH TWICE A DAY WITH FOOD FOR 30 DAYS Rx Instructions: Please do not take if you are feeling lightheaded or have a blood pressure less than 120 systolic at home Follow Up: Nathan Hathaway DO [Primary Care Provider] - 05/25/23 11:15 am (Post hospital appointment. Please call to reschedule if needed.) Documented By: Lj Ryan DO 05/18/23 1141 Signed By: <Electronically signed by Lj Ryan DO> 05/18/23 1144 [facility] Work Phone: [phone]) 409-635407-20-2023 History and physical note Author Lj Ryan [facility] May 17, 2023 3:56pm Note Date/Time May 17, 2023 3:49 pm [facility] [address] [place] [address] Hospitalist H&P Signed Patient: Lashaun Joaquin MR#: [id number] : 1940 Acct:[id number] Age/Sex: 82 / F Adm Date: 3 Loc: 3T Room: [address] [place] [address] Type: ADM INOo Attending Dr: Lj Ryan DO Copies to: DO Lj Prado DO~ HPI DATE OF EXAMINATION: 05/17/23 CHIEF COMPLAINT: shortness of breath HISTORY OF PRESENT ILLNESS: Miss Joaquin is an 82-year-old female with past medical history of CAD status poststenting in February 2023, GERD, hyperlipidemia, hypertension, and restless leg syndrome who presents hospital today with chief complaint of shortness of breathand high blood pressure. This reportedly started last night, the patient was laying in bed at home from the sleep and she suddenly felt she was very short ofbreath, she got out of bed and had trouble catching her breath even when she wasawake. This never happened to her before, she does have a history of fluid retention and is on Lasix 20 mg every other day. She and her daughter both watch her weight closely, and states that she has been over 200 pounds the last couple of days and this is above her dry weight, the daughter even mentions a 5 pound weight gain last couple of days. She denies any chest pain, nausea, vomiting, diarrhea with this shortness of breath. She has a slight dry cough, otherwise she has no other symptoms she is participating in cardiac rehab, she denies any issues with shortness of breath or chest pain during her rehab. In the ED a CT PE was performed which was negative for PE, venous Doppler was obtained for lower extremity edema which was negative for any DVT or SVT. Her BNP was elevated at 450 and she was thought to be hypertensive, 216/75 initially, she did receive IV hydralazine and a nitro patch and her blood pressure did lower to 186/78. Her baseline oxygenation is room air. Review of Systems Review of Systems All other systems reviewed & are negative unless noted below or in HPI [facility] Medical History (Updated 05/17/23 @ 15:50 by Lj Ryan DO) Anxiety GERD (gastroesophageal reflux disease) History of one miscarriage Hyperlipidemia Hypertension Neuropathy Restless leg syndrome Surgical History (Updated 05/17/23 @ 10:42 by Carmelina Gaspar RN) H/O heart artery stent History of hysterectomy History of phacoemulsification of cataract of both eyes with intraocular lens implantation Family History Brother Diabetes mellitus, type 2 Heart disease Father Myocardial infarction Heart disease Mother History of automatic internal cardiac defibrillator (AICD) Heart disease Brother Renal cancer Sister Multiple sclerosis Leukemia Brother Lung cancer Agent orange exposure Brother Colon cancer Brother Bladder cancer Brother Lung cancer Social History Smoking Status: Former smoker Tobacco Type: cigarettes Substance Use Type: Prescribed Meds Medications and Allergies Allergies doxycycline Allergy (Verified 03/09/23 09:52) Unknown Reaction Penicillins Allergy (Verified 03/08/23 09:44) Rash Sulfa (Sulfonamide Antibiotics) Allergy (Verified 03/08/23 09:44) Rash sulfamethoxazole [From Bactrim] Allergy (Verified 03/09/23 09:52) Unknown Reaction trimethoprim [From Bactrim] Allergy (Verified 03/09/23 09:52) Unknown Reaction Home Medications alprazolam 0.25 mg tablet 0.25 mg PO TID PRN Anxiety 03/08/23 [History Confirmed 05/17/23] aspirin 81 mg tablet,delayed release 81 mg PO QAM 03/08/23 [History Confirmed 05/17/23] carvedilol 3.125 mg tablet 3.125 mg PO BID 03/08/23 [History Confirmed 05/17/23] furosemide 20 mg tablet 20 mg PO Q OTHER DAY 03/08/23 [History Confirmed 05/17/23] gabapentin 100 mg capsule 100 mg PO BID 03/08/23 [History Confirmed 05/17/23] irbesartan 150 mg tablet 150 mg PO QAM 03/08/23 [History Confirmed 05/17/23] pantoprazole 40 mg tablet,delayed release 40 mg PO QAM 03/08/23 [History Confirmed 05/17/23] potassium chloride 10 mEq tablet,extended release 10 meq PO Q3W 03/08/23 [History Confirmed 05/17/23] pravastatin 40 mg tablet 40 mg PO QPM 03/08/23 [History Confirmed 05/17/23] temazepam 15 mg capsule 15 mg PO QHS 03/08/23 [History Confirmed 05/17/23] clopidogrel 75 mg tablet 75 mg PO DAILY 05/17/23 [History Confirmed 05/17/23] fluticasone propionate 115 mcg-salmeterol 21 mcg/actuation HFA inhaler (Advair HFA) 2 puff inhalation BID 05/17/23 [History Confirmed 05/17/23] Exam Physical Exam Vital Signs: Temp Pulse Resp BP Pulse Ox O2 Del Method O2 Flow Rate 97.9 F 56 L 18 186/78 H 95 Nasal Cannula 2 05/17/23 10:23 05/17/23 15:03 05/17/23 15:03 05/17/23 15:03 05/17/23 15:03 05/17/23 15:03 05/17/23 15:03 Narrative: General: Awake alert, no acute distress HEENT: head atraumatic, normocephalic, moist mucous membranes Neck: supple no masses, no lymphadenopathy CVS: regular rate and rhythm, no murmurs or gallops Respiratory: clear to auscultation bilaterally, no wheezing or crackles, symmetric expansion GI: soft, nondistended, nontender, positive bowel sounds with no organomegaly Extremity: moves all extremities, no restrictions of movements, no calf tenderness, no edema Neuro: AOx3, CN II-VII intact. Moves all extremities in all planes of motion. Skin: dry, intact no rashes or lesions Results Lab Results Labs: Laboratory Last Values Corrected WBC 10.2 X10E3/uL (3.8-11.6) 05/17/23 10:25 Uncorrected WBC Count 12.1 x10E3/uL (3.8-11.6) H 05/17/23 10:25 RBC 3.32 X10E6/uL (3.60-5.00) L 05/17/23 10:25 Hgb 9.9 g/dL (11.8-15.4) L 05/17/23 10:25 Hct 29.0 % (34.0-46.4) L 05/17/23 10:25 MCV 87.4 fl (80-100) 05/17/23 10:25 MCH 29.7 pg (24.7-34.3) 05/17/23 10:25 MCHC 34.0 g/dL (32.0-35.0) 05/17/23 10:25 RDW 14.1 % (11.9-15.3) 05/17/23 10:25 Plt Count 326 x10E3/uL (150-450) 05/17/23 10:25 MPV 8.5 fl (6.3-10.7) 05/17/23 10:25 Neut % (Auto) 84.2 % (.) 05/17/23 10:25 Lymph % (Auto) 9.3 % (.) 05/17/23 10:25 Burke % (Auto) 5.5 % (.) 05/17/23 10:25 Eos % (Auto) 0.5 % (.) 05/17/23 10:25 Baso % (Auto) 0.5 % (.) 05/17/23 10:25 Nucleat RBC Rel Count 0.0 /100 WBC (0-0.5) 05/17/23 10:25 Neut # (Auto) 8.6 x10E3/uL (1.8-7.7) H 05/17/23 10:25 Lymph # (Auto) 1.0 x10E3/uL (1.00-4.8) 05/17/23 10:25 Burke # (Auto) 0.6 x10E3/uL (0.0-0.8) 05/17/23 10:25 Eos # (Auto) 0.1 x10E3/uL (0.0-0.45) 05/17/23 10:25 Baso # (Auto) 0.1 x10E3/uL (0.0-0.2) 05/17/23 10:25 Monocyte Dist Width 22.37 % (0.00-20.00) H 05/17/23 10:25 PT 12.5 Seconds (9.0-12.9) 05/17/23 10:25 INR 1.1 05/17/23 10:25 PHA Creatinine Clear 47.90 05/17/23 10:25 Sodium 142 mmol/L (136-145) 05/17/23 10:25 Potassium 4.6 mmol/L (3.5-5.1) 05/17/23 10:25 Chloride 107 mmol/L (98-107) 05/17/23 10:25 Carbon Dioxide 28.3 mmol/L (21.0-31.0) 05/17/23 10:25 Anion Gap 11.3 mEq/L (6.0-15.0) 05/17/23 10:25 BUN 16 mg/dL (7-25) 05/17/23 10:25 Creatinine 1.12 mg/dL (0.60-1.20) 05/17/23 10:25 Est GFR (CKD-EPI) 49.710 mL/Min 05/17/23 10:25 Glucose 100 mg/dL (70-100) 05/17/23 10:25 Calcium 9.1 mg/dL (8.6-10.3) 05/17/23 10:25 Magnesium 2.1 mg/dL (1.9-2.7) 05/17/23 10:25 Total Bilirubin 0.7 mg/dl (0.3-1.0) 05/17/23 10:25 AST 16 U/L (13-39) 05/17/23 10:25 ALT 14 U/L (7-52) 05/17/23 10:25 Alkaline Phosphatase 44 U/L (34-104) 05/17/23 10:25 Total Creatine Kinase 49 U/L (30-223) 05/17/23 10:25 Troponin I High Sens 10.2 pg/mL (0.0-15.0) 05/17/23 10:25 B-Natriuretic Peptide 450.0 pg/mL (5-100) H 05/17/23 10:25 Total Protein 6.9 gm/dL (6.4-8.9) 05/17/23 10:25 Albumin 4.0 gm/dL (3.5-5.7) 05/17/23 10:25 Globulin 2.9 gm/dL 05/17/23 10:25 Albumin/Globulin Ratio 1.4 05/17/23 10:25 Assessment & Plan Assessment/Plan (1) Hypertensive emergency: Plan: ? Patient received IV hydralazine and Nitropatch in the ED to lower blood pressure, she also received 40 mg IV push Lasix which she did have a great response to. She already urinated 3x4 I evaluated ? Continue with Lasix 40 mg tonight at 7 PM and then 20 mg IV push tomorrow morning 8 AM ? Reassess fluid status ? Titrate oxygen off as tolerated ? Maintain oxygenation SPO2 above 92% ? Daily weights ? Labetalol 10 mg IV push as needed for blood pressure over 180 ? Increased home dose of Coreg from 3.125 mg twice daily to 12.5 mg twice daily ? Continue remaining home medications, irbesartan, Plavix, aspirin, Protonix (2) Flash pulmonary edema: Plan: As above, patient was not severe enough to need BiPAP or nitroglycerin drip Plan ? DVT prophylaxis addressed with Lovenox ? Low-salt diet ? Full code Patient be admitted admitted for shortness of breath, she required diuresis overnight and titration of oxygen. At time my assessment after the ER physiciansaw her she is already breathing much better on 2 L nasal cannula, there is veryfaint wheezing heard on auscultation. I suspect her to improve drastically overnight with further diuresis and she will be here less than 2 midnights thus it is observation. IP vs OBS Justification Based on differential dx, clinical care plan, and risk of adverse events, if untreated, in my clinical judgement this patient requires an acute care setting as: OBSERVATION because of an expectation of an under 2 midnight stay. 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 They are instructed to continue exercise and AHA diet plan. Apr, Simple chronic bronchitis (ICD-10 - J41.0) Continue abstinence from tobacco Avoid toxins, smog and allergens Initiated LABA/ICS EDEL as needed PFT? CT and CXR clear w/ stable small nodule Apr, Primary hypertension (ICD-10 - I10) This patient is instructed to consume a healthy, low-fat, low-salt diet. They are also encouraged to continue exercise to achieve/maintain a normal BMI. Patient is instructed on home BP measurements: - rest for 5 minutes w/o talking- positioned w/ feet on floor and arm supported- average best 2/3 readings w/ goal < 135-85 Apr, Chronic venous insufficiency (ICD-10 - I87.2) Avoid salt and elevate lower extremities, support stockings, inspect legs and feet daily for blisters and ulcerations. Apr, OMAR (generalized anxiety disorder) (ICD-10 - F41.1) Healthy diet, exercise and keep active Apr, Gastroesophageal reflux disease with esophagitis without hemorrhage (ICD-10 - K21.00) Diet instructions: Smaller portions, avoid eating and laying flat, avoid eating or drinking prior to bedtime. Weight loss. Apr, Nicotine dependence, cigarettes, in remission (ICD-10 - F17.211) Continue abstinence Apr, Other obesity due to excess calories (ICD-10 - E66.09) This patient has been instructed on a low-fat, high-fiber diet. They are instructed to reduce calories, portion sizes and snacks. It is recommended that they exercise for 30 minutes, 3-5 times weekly. Apr, Body mass index [BMI ] 33.0-33.9, adult (ICD-10 - Z68.33) [facility] Other 07-12-2023 Evaluation note* Encounter Date Diagnosis Assessment Notes Treatment Notes Treatment Clinical Notes Apr, Shortness of breath (ICD-10 - R06.02) Multifactorial: - COPD w/ acute exacerbation - start LABA/LAMA/ICS q 12 hours - EDEL as needed - CXR and CT completed - PFT in future Recheck in week Defer change in medication to Cardiology Apr, Simple chronic bronchitis (ICD-10 - J41.0) Continue EDEL as needed for cough and wheezing Start triple therapy w/ Breztri for next week. Recheck in week to determine response PFT? Apr, ASHD (arteriosclerotic heart disease) (ICD-10 - I25.10) This patient is stable without activity related CP, dyspnea or lightheadedness. They are instructed to continue exercise and AHA diet plan. Apr, Primary hypertension (ICD-10 - I10) This patient is instructed to consume a healthy, low-fat, low-salt diet. They are also encouraged to continue exercise to achieve/maintain a normal BMI. Apr, Chronic venous insufficiency (ICD-10 - I87.2) Avoid salt and elevate lower extremities, support stockings, inspect legs and feet daily for blisters and ulcerations. Apr, Other obesity due to excess calories (ICD-10 - E66.09) This patient has been instructed on a low-fat, high-fiber diet. They are instructed to reduce calories, portion sizes and snacks. It is recommended that they exercise for 30 minutes, 3-5 times weekly. Apr, Body mass index [BMI] 32.0-32.9, adult (ICD-10 - Z68.32) Apr, Nicotine dependence, cigarettes, in remission (ICD-10 - F17.211) [facility] Other 06-29-2023 Evaluation note* Encounter Date Diagnosis Assessment Notes Treatment Notes Treatment Clinical Notes Mar, Paronychia of finger of right hand (ICD-10 - L03.011) [facility] Other 06-29-2023 Evaluation note* Encounter Date Diagnosis Assessment Notes Treatment Notes Treatment Clinical Notes Mar, ASHD (arteriosclerotic heart disease) (ICD-10 - I25.10) This patient is stable without activity related CP, dyspnea or lightheadedness. They are instructed to continue exercise and AHA diet plan. Mar, Primary hypertension (ICD-10 - I10) This patient is instructed to consume a healthy, low-fat, low-salt diet. They are also encouraged to continue exercise to achieve/maintain a normal BMI. Mar, Chronic bronchitis, simple (ICD-10 - J41.0) Continue Mucinex or Robitussin. EDEL 2-3x daily, may need HHN Cough and deep breathing exercises CXR clear PFT if not improvement Mar, Paronychia of finger of right hand (ICD-10 - L03.011) Soak in warm water Steroid crm along nail bed Initiate antibiotics Mar, Chronic venous insufficiency (ICD-10 - I87.2) Avoid salt and elevate lower extremities, support stockings, inspect legs and feet daily for blisters and ulcerations. Mar, Other obesity due to excess calories (ICD-10 - E66.09) This patient has been instructed on a low-fat, high-fiber diet. They are instructed to reduce calories, portion sizes and snacks. It is recommended that they exercise for 30 minutes, 3-5 times weekly. Mar, Body mass index [BMI ] 32.0-32.9, adult (ICD-10 - Z68.32) Mar, Hyperlipidemia type II (ICD-10 - E78.01) Mar, Restless leg syndrom e (ICD-10 - G25.81) Hydrate and healthy diet. Mar, Paresthesias (ICD-10 - R20.2) [facility] Other 06-21-2023 Evaluation note* Encounter Date Diagnosis Assessment Notes Treatment Notes Treatment Clinical Notes Mar, Shortness of breath (ICD-10 - R06.02) Reviewed etiology of RODGERS: - CHF - COPD exacerbation - respiratory infection - anxiety CXR and labs to exclude above differential Mar, ASHD (arteriosclerotic heart disease) (ICD-10 - I25.10) s/p PCI/stent RCA and diagonal br. Denies CP, palpitations or lightheadedness This patient is stable without activity related CP, dyspnea or lightheadedness. They are instructed to continue exercise and AHA diet plan. Mar, Primary hypertension (ICD-10 - I10) This patient is instructed to consume a healthy, low-fat, low-salt diet. They are also encouraged to continue exercise to achieve/maintain a normal BMI. Mar, Chronic bronchitis, simple (ICD-10 - J41.0) Quit smoking > 10 years ago No chronic use of inhalers. Mucinex for clearing of secretions, wheezing. Consider EDEL Mar, Anemia, unspecified type (ICD-10 - D64.9) Chronic due to inflammation. f/u Hematology Mar, Sinus bradycardia (ICD-10 - R00.1) Presently on lowest dose of Coreg. Continue for now. Mar, Adverse effect of drug, initial encounter (ICD-10 - T50.905A) Known ADR of Brilinta is SOB. Superior in prevening restenosis post PCI/stent placement. Continue for 12 months [facility] Other 06-21-2023 Evaluation note* Encounter Date Diagnosis Assessment Notes Treatment Notes Treatment Clinical Notes Mar, Chronic bronchitis, simple (ICD-10 - J41.0) [facility] Other 05-30-2023 Evaluation note* Encounter Date Diagnosis Assessment Notes Treatment Notes Treatment Clinical Notes February, Paresthesias (ICD-10 - R20.2) [facility] Other 05-18-2023 Evaluation note* Encounter Date Diagnosis Assessment Notes Treatment Notes Treatment Clinical Notes February, ASHD (arteriosclerotic heart disease) (ICD-10 - I25.10) This patient is stable without activity related CP, dyspnea or lightheadedness. They are instructed to continue exercise and AHA diet plan. February, Primary hypertension (ICD-10 - I10) This patient is instructed to consume a healthy, low-fat, low-salt diet. They are also encouraged to continue exercise to achieve/maintain a normal BMI. February, Hyperlipidemia type II (ICD-10 - E78.01) Instructed on diet and exercise with continued statin therapy.Discussed the beneficial effects of lowering cholesterol in reducing the risk for cerebrovascular and cardiovascular disease. February, Nicotine dependence, cigarettes, in remission (ICD-10 - F17.211) Continue abstinence. Yearly LDCT chest for lung cancer screening February, Chronic venous insufficiency (ICD-10 - I87.2) Avoid salt and elevate lower extremities, support stockings, inspect legs and feet daily for blisters and ulcerations. February, Gastroesophageal reflux disease with esophagitis without hemorrhage (ICD-10 - K21.00) Diet instructions: Smaller portions, avoid eating and laying flat, avoid eating or drinking prior to bedtime. Weight loss. 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 Titrate Gabapentin and monitor for fluid retention [facility] Other 05-08-2023 Evaluation note* Encounter Date Diagnosis Assessment Notes Treatment Notes Treatment Clinical Notes February, Primary hypertension (ICD-10 - I10) 08 May, 2023 Chronic venous insufficiency (ICD-10 - I87.2) [facility] Other 04-19-2023 Evaluation note* Encounter Date Diagnosis Assessment Notes Treatment Notes Treatment Clinical Notes Jan, Essential hypertension (ICD-10 - I10) ECHOCARDIOGRAM - 01/2023 1. LVEF is 65%. 2. Normal right ventricular size and systolic function, elevated RVSP 3. Grade 2 diastolic dysfunction. 4. Mild to moderate mitral regurgitation. This patient is instructed to consume a healthy, low-fat, low-salt diet. They are also encouraged to continue exercise to achieve/maintain a normal BMI. After finalizing her med list, will add BB Jan, Acute on chronic diastolic heart failure (ICD-10 - I50.33) Maintain adequate BP control Hydrate, avoid stimulants, avoid NSAIDs Daily weights and take extra Furosemide for unexplained weight gain > 3lb Jan, Pulmonary hypertension (ICD-10 - I27.20) May be due to COPD, STACIE - evaluation after stress testing Jan, Obesity (BMI 30.0-34.9) (ICD-10 - E66.9) This patient has been instructed on a low-fat, high-fiber diet. They are instructed to reduce calories, portion sizes and snacks. It is recommended that they exercise for 30 minutes, 3-5 times weekly. Jan, Chronic venous insufficiency (ICD-10 - I87.2) Avoid salt and elevate lower extremities, support stockings, inspect legs and feet daily for blisters and ulcerations. Jan, OMAR (generalized anxiety disorder) (ICD-10 - F41.1) Healthy diet, exercise and keep active Jan, Anemia, unspecified type (ICD-10 - D64.9) No obvious bleeding Denies N/V/D, melena or hematochezia Denies abdominal pain, change in appetite or bowel habits [facility] Other 04-16-2023 Evaluation note* Encounter Date Diagnosis Assessment Notes Treatment Notes Treatment Clinical Notes Jan, Essential hypertension (ICD-10 - I10) ECHOCARDIOGRAM - 01/2023 1. LVEF is 65%. 2. Normal right ventricular size and systolic function, elevated RVSP 3. Grade 2 diastolic dysfunction. 4. Mild to moderate mitral regurgitation. Jan, Pulmonary hypertension (ICD-10 - I27.20) Jan, Acute on chronic diastolic heart failure (ICD-10 - I50.33) [facility] Other 04-07-2023 Evaluation note* Encounter Date Diagnosis Assessment Notes Treatment Notes Treatment Clinical Notes Jan, Precordial pain (ICD-10 - R07.2) Activity limiting symptoms. Recommend stress testing to r/o myocardial ischemia Jan, RODGERS (dyspnea on exertion) (ICD-10 - R06.09) Review CT scans - if no imaging in past year, will repeat Jan, Essential hypertension (ICD-10 - I10) This patient is instructed to consume a healthy, low-fat, low-salt diet. They are also encouraged to continue exercise to achieve/maintain a normal BMI. Jan, Paresthesias (ICD-10 - R20.2) Healthy diet Keep active Increase evening Gabapentin to 200-300mg Jan, Chronic venous insufficiency (ICD-10 - I87.2) Avoid salt and elevate lower extremities, support stockings, inspect legs and feet daily for blisters and ulcerations. Jan, Lung nodule (ICD-10 - R91.1) CT: 5mm nodule, GGO 07/2021 CT: unchanged 07/[address], review Oncology scans Jan, MGUS (monoclonal gammopathy of unknown significance) (ICD-10 - D47.2) f/u Hematology Jan, OMAR (generalized anxiety disorder) (ICD-10 - F41.1) Healthy diet, keep active continue Xanax as needed Jan, Nicotine dependence, cigarettes, in remission (ICD-10 - F17.211) Contnue abstinence Jan, Hyperlipidemia type II (ICD-10 - E78.01) Diet and exercise with continued statin therapy. [facility] Other 02-23-2023 Evaluation note* Encounter Date Diagnosis Assessment Notes Treatment Notes Treatment Clinical Notes Nov, Primary insomnia (ICD-10 - F51.01) [facility] Other 02-16-2023 Evaluation note* Encounter Date Diagnosis Assessment Notes Treatment Notes Treatment Clinical Notes Nov, Medicare annual wellness visit, subsequent (ICD-10 - Z00.00) Personalized health advice was given to the beneficiary including a written plan for screenings discussed and provided. Advanced care planning reviewed and/or information given as requested. Additional counseling was provided here today in regards to, [ ]. The above visit was performed by [ ], under direct supervision of [ ]. Document reviewed and amended by provider signed below. Nov, Essential hypertension (ICD-10 - I10) This patient is instructed to consume a healthy, low-fat, low-salt diet. They are also encouraged to continue exercise to achieve/maintain a normal BMI. Nov, OMAR (generalized anxiety disorder) (ICD-10 - F41.1) Healthy diet, exercise and keep active. No change in medications Nov, Chronic venous insufficiency (ICD-10 - I87.2) Avoid salt and elevate lower extremities, support stockings, inspect legs and feet daily for blisters and ulcerations. Nov, Adrenal nodule (ICD-10 - E27.9) Continue surveillance scans x 2 years. Discussed hormone active tumors, no evidence of pheo, dalia's or hyperplasia Nov, Restless leg syndrome (ICD-10 - G25.81) Exercise, stretching and continue [place] Nov, MGUS (monoclonal gammopathy of unknown significance) (ICD-10 - D47.2) Yearly SPEP w/ Dr. Mckenzie Nov, Obesity (BMI 30.0-34.9) (ICD-10 - E66.9) This patient has been instructed on a low-fat, high-fiber diet. They are instructed to reduce calories, portion sizes and snacks. It is recommended that they exercise for 30 minutes, 3-5 times weekly. Nov, Nicotine dependence, cigarettes, in remission (ICD-10 - F17.211) Continue abstinence Nov, Screening mammogram for breast cancer (ICD-10 - Z12.31) [facility] Other 02-06-2023 NoteHNO ID: [id number] Author: Luis Mckenzie MD Service: ? Author Type: Physician Type: Progress Notes Filed: 12/06/2022 6:56 AM Note Text: PATIENT NAME: Lashaun Joaquin DATE: 12/04/2022 PRIMARY CARE PHYSICIAN: Nathan Hathaway DO Portions of this encounter note have been copied from my note from 05/29/2022 and has been updated where appropriate, and reflect my current medical decision making from today. CC: This is an 82 year old female with chronic neuropathy and arthritis, initially referred for evaluation of an abnormal SPEP, seen for scheduled follow-up. INTERIM HISTORY: Since the patient's last visit here she apparently developed chest heaviness and currently is being evaluated by her PCP for heart disease. Otherwise she has had no significant medical changes. Her neuropathic symptoms causing numbness in her feet has not changed. She denies any weakness or other neurological symptoms. Despite her neuropathy she remains very active. She has intermittent arthritic pain, not severe. No recent fevers or weight loss. Overall she feels relatively well. MEDICATIONS: Current Outpatient Medications Medication Sig pantoprazole DR (PROTONIX) 40 mg tablet MULTI-VITAMIN ORAL Take by mouth. calcium carbonate (CALCIUM 600 ORAL) Take by mouth. aspirin 81 mg cap Take by mouth. pravastatin sodium (PRAVASTATIN ORAL) Take 40 mg by mouth every evening. losartan (COZAAR) 100 mg tablet Take 100 mg by mouth once daily. temazepam (RESTORIL) 15 mg Take by mouth at bedtime as needed. ALPRAZolam (XANAX) 0.25 mg tablet Take 0.25 mg by mouth three times daily as needed. GABAPENTIN ORAL Take 100 mg by mouth twice daily. No current facility-administered medications for this visit. ALLERGIES: ALLERGIES Allergen Reactions Amlodipine Unknown Bactrim [Sulfametho* Unknown Cheratussin Ac [Cod* Unknown Doxycycline Hyclate Unknown Duloxetine Unknown Iodine And Iodide C* Unknown 08/04/22 confirmed with patient that she is not allergic to CT contrast and has had it previously without issues or premeds. Levaquin [Levofloxa* Unknown Penicillins Unknown Tetanus And Diphthe* Unknown Tetracyclines Unknown Zofran [Ondansetron] Unknown PAST MEDICAL HISTORY: PAST MEDICAL HISTORY Diagnosis Date Cervical spondylosis Chronic venous insufficiency Dysuria-frequency syndrome Essential hypertension Estrogen deficiency OMAR (generalized anxiety disorder) GERD (gastroesophageal reflux disease) Hyperlipidemia type II Irritable bowel syndrome with diarrhea Lipoma of neck Malaise and fatigue Paresthesias Peripheral polyneuropathy Primary insomnia Ptosis of right eyelid Trochanteric bursitis of right hip Unsteady gait when walking PAST SURGICAL HISTORY: PAST SURGICAL HISTORY Procedure Laterality Date TOTAL ABD HYSTERECTOMY+BLAD REPR FAMILY HISTORY: FAMILY HISTORY Problem Relation Age of Onset Lymphoma Mother Cancer Father Leukemia Sister Multiple Sclerosis Sister Lung Cancer Brother Colon Cancer Brother Lung Cancer Brother SOCIAL HISTORY: Social History Tobacco Use Smoking status: Former Types: Cigarettes Smokeless tobacco: Never COMPLETE REVIEW OF SYSTEMS: CONSTITUTION: Negative for pain, fatigue, weight loss, or appetite loss. EENT: Negative for mouth soreness, antibiotics use, epistaxis, visual problems, neck or facial swelling, fever/chills, bleeding gums, or hearing loss. CV: Negative for edema, calf swelling, palpitations, or chest pain. RESPIRATORY: Negative for cough, SOB, hemoptysis, or wheezing. GI: Negative for nausea/vomiting, heartburn, vomiting blood, dysphasia, diarrhea, blood in stool, constipation, early satiety, PICA, vegetarian, poor nutrition, abdominal fullness, or abdominal pain. NEUROLOGICAL: Negative for numbness/tingling, dizziness, gait disturbance, headache, speech disturbance, tremor, hemiparesis/sensory loss, or change in mental status. MUSCULOSKELETAL: Negative for joint pain, joint swelling, or proximal muscle weakness. SKIN: Negative for hair loss, bruising, nail changes, rash, itching, pallor, or jaundice. ENDO/URO: Negative for hot flashes, cold or heat intolerance, urinary frequency, urinary hesitancy, menorrhagia, or hematuria. PSYCH: Negative for anxiety, depression, or other. PHYSICAL EXAM: BP 167/54 Pulse 63 Temp 36.2 ?C (97.1 ?F) (Temporal) Resp 16 Ht 166.4 cm (5' 5.51 ) Wt 90.4 kg (199 lb 3.2 oz) SpO2 96% BMI 32.63 kg/m? GENERAL EXAM: Well developed/well nourished; in no acute distress. SKIN: Negative for lesions, rashes, or ulcers on the upper and lower extremities and face. Negative for palpations/nodules, purpura, and ecchymosis. EENT: Negative for conjunctiva, mucosal pallor, JVD, LAP, thyromegaly, and glossitis. Supple AND PERRL. EXTREMITIES: Negative for cyanosis, clubbing, and crepitus. LUNGS: Negative to auscultation, respiratory effort, and percussion. (more content not included)...[facility]02-06-2023 History of Present illness Narrative* Luis Mckenzie MD - 12/04/2022 8:20 AM EST PATIENT NAME: Lashaun Joaquin DATE: 12/04/2022 PRIMARY CARE PHYSICIAN: Nathan Hathaway DO Portions of this encounter note have been copied from my note from 05/29/2022 and has been updated where appropriate, and reflect my current medical decision making from today. CC: This is an 82 year old female with chronic neuropathy and arthritis, initially referred for evaluation of an abnormal SPEP, seen for scheduled follow-up. INTERIM HISTORY: Since the patient's last visit here she apparently developed chest heaviness andcurrently is being evaluated by her PCP for heart disease. Otherwise she has had no significant medical changes. Her neuropathic symptoms causing numbness in her feet has not changed. She denies any weakness or other neurological symptoms. Despite her neuropathy she remains very active. She has intermittent arthritic pain, not severe. No recent fevers or weight loss. Overall she feels relatively well. MEDICATIONS: Current Outpatient Medications Medication Sig pantoprazole DR (PROTONIX) 40 mg tablet MULTI-VITAMIN ORAL Take by mouth. calcium carbonate (CALCIUM 600 ORAL) Take by mouth. aspirin 81 mg cap Take by mouth. pravastatin sodium (PRAVASTATIN ORAL) Take 40 mg by mouth every evening. losartan (COZAAR) 100 mg tablet Take 100 mg by mouth once daily. temazepam (RESTORIL) 15 mg Take by mouth at bedtime as needed. ALPRAZolam (XANAX) 0.25 mg tablet Take 0.25 mg by mouth three times daily as needed. GABAPENTIN ORAL Take 100 mg by mouth twice daily. No current facility-administered medications for this visit. ALLERGIES: ALLERGIES Allergen Reactions Amlodipine Unknown Bactrim [Sulfametho* Unknown Cheratussin Ac [Cod* Unknown Doxycycline Hyclate Unknown Duloxetine Unknown Iodine And Iodide C* Unknown 08/04/22 confirmed with patient that she is not allergic to CT contrast and has had it previously without issues or premeds. Levaquin [Levofloxa* Unknown Penicillins Unknown Tetanus And Diphthe* Unknown Tetracyclines Unknown Zofran [Ondansetron] Unknown PAST MEDICAL HISTORY: PAST MEDICAL HISTORY Diagnosis Date Cervical spondylosis Chronic venous insufficiency Dysuria-frequency syndrome Essential hypertension Estrogen deficiency OMAR (generalized anxiety disorder) GERD (gastroesophageal reflux disease) Hyperlipidemia type II Irritable bowel syndrome with diarrhea Lipoma of neck Malaise and fatigue Paresthesias Peripheral polyneuropathy Primary insomnia Ptosis of right eyelid Trochanteric bursitis of right hip Unsteady gait when walking PAST SURGICAL HISTORY: PAST SURGICAL HISTORY Procedure Laterality Date TOTAL ABD HYSTERECTOMY+BLAD REPR FAMILY HISTORY: FAMILY HISTORY Problem Relation Age of Onset Lymphoma Mother Cancer Father Leukemia Sister Multiple Sclerosis Sister Lung Cancer Brother Colon Cancer Brother Lung Cancer Brother SOCIAL HISTORY: Social History Tobacco Use Smoking status: Former Types: Cigarettes Smokeless tobacco: Never COMPLETE REVIEW OF SYSTEMS: CONSTITUTION: Negative for pain, fatigue, weight loss, or appetite loss. EENT: Negative for mouth soreness, antibiotics use, epistaxis, visual problems, neck or facial swelling, fever/chills, bleeding gums, or hearing loss. CV: Negative for edema, calf swelling, palpitations, or chest pain. RESPIRATORY: Negative for cough, SOB, hemoptysis, or wheezing. GI: Negative for nausea/vomiting, heartburn, vomiting blood, dysphasia, diarrhea, blood in stool, constipation, early satiety, PICA, vegetarian, poor nutrition, abdominal fullness, or abdominal pain. NEUROLOGICAL: Negative for numbness/tingling, dizziness, gait disturbance, headache, speech disturbance, tremor, hemiparesis/sensory loss, or change in mental status. MUSCULOSKELETAL: Negative for joint pain, joint swelling, or proximal muscle weakness. SKIN: Negative for hair loss, bruising, nail changes, rash, itching, pallor, or jaundice. ENDO/URO: Negative for hot flashes, cold or heat intolerance, urinary frequency, urinary hesitancy,menorrhagia, or hematuria. PSYCH: Negative for anxiety, depression, or other. PHYSICAL EXAM: BP 167/54 Pulse 63 Temp 36.2 C (97.1 F) (Temporal) Resp 16 Ht 166.4 cm (5' 5.51 ) Wt 90.4 kg (199 lb 3.2 oz) SpO2 96% BMI 32.63 kg/m GENERAL EXAM: Well developed/well nourished; in no acute distress. SKIN: Negative for lesions, rashes, or ulcers on the upper and lower extremities and face. Negativefor palpations/nodules, purpura, and ecchymosis. EENT: Negative for conjunctiva, mucosal pallor, JVD, LAP, thyromegaly, and glossitis. Supple & PERRL. EXTREMITIES: Negative for cyanosis, clubbing, and crepitus. LUNGS: Negative to auscultation, respiratory effort, and percussion. CARDIOVASCULAR: Regular rate. Negative for murmurs/S3S4/abnormal sounds, edema, and carotid bruits. ABDOMEN: Negative for masses, hernia, and spleen/liver abnormalities. RECTAL: Not done PSYCHIATRIC: Negative for mood/affect changes, recent & remote memory changes, and judgement and insight. NEUROLOGICAL: Alert, oriented x person, place, time. Cranial nerves 2-12 intact. Sensory for pain, light touch, vibration intact on all 4 extremities. Reflexes symmetric for biceps/brachioradial/patella/achilles. MUSCULOSKELETAL: Thickened tissue in the right supraclavicular fossa, possible lymphadenopathy. Slight tenderness but no redness. RADIOLOGIC DATA: 08/28/2022 CT chest IMPRESSION: 1. Interval resolution of previously described right upper lobe nodular opacities, likely infectious/inflammatory in nature. 2. Otherwise stable CT of the chest. Stable reticulonodular opacities most prominent in the bilateral upper lobes. Other scattered nodular opacities measuring up to 3 mm, stable. 3. No evidence of bulky intrathoracic adenopathy. 08/28/2022 CT abdomen/pelvis IMPRESSION: 1. Stable CT of the abdomen and pelvis. Stable left adrenal gland nodule. Consider further evaluation with adrenal mass protocol CT. 2. No evidence of abdominal or pelvic lymphadenopathy. 3. Sigmoid diverticulosis without evidence of diverticulitis. 08/24/2021 CT chest IMPRESSION: 1. Bilateral, patchy reticulonodular and groundglass opacities are identified within upper lobe predominance, likely infectious/inflammatory in nature. Correlation with follow-up examinations is recommended to assess for clearing. 2. A few scattered 5 mm or less nodules are identified, as above. Test on follow-up studies. 3. No substantial intrathoracic adenopathy is identified. 08/24/2021 CT abdomen/pelvis IMPRESSION: 1. Indeterminate 1.1 cm left adrenal gland nodule. Suggest correlation with follow-up examinations to assess for stability. Alternatively, for immediate further evaluation, an MRI examination of the adrenal glands would be recommended. 2. Sigmoid diverticulosis, without CT evidence for acute diverticulitis. LABS: Hemoglobin (g/dL) Date Value 11/27/2022 10.9 11/15/2021 11.5 Hematocrit (%) Date Value 11/27/2022 33.9 11/15/2021 36.1 WBC (k/uL) Date Value 11/27/2022 5.01 11/15/2021 5.96 Platelet Count (k/uL) Date Value 11/27/2022 278 11/15/2021 274 ASSESSMENT/PLAN: 1. Abnormal SPEP - ICD9: 790.99, ICD10: R77.8 (primary diagnosis) The patient presented in June 2021 with complaints of numbness and tingling sensation of her legs consistent with neuropathy. Labs 07/06/2021 revealed an abnormal SPEP with an elevated IgM of 340 and elevated serum free kappa with a kappa/lambda ratio 3.2. Her IgG and IgA levels were normal, andno M spike was observed. Other than neuropathy the patient had no suspicious systemic symptoms, andobservation was recommended. Labs obtained 08/01/2021 revealed a markedly elevated sed rate. Repeat SPEP showed slight elevation of the IgM as before. No specific M spike was seen, but a faint area suggesting a possible monoclonal protein. CT scans to rule out malignancy revealed small pulmonary nodules and a left adrenal glandnodule of unclear significance. Repeat labs obtained 11/15/2021 revealed her IgM and sed rate were slightly improved, and once again no evidence of an M spike. It was felt that the patient's elevated IgM and sed rate were from underlying inflammation rather than malignancy and continued observation was recommended. Most recent labs 11/27/2022 stable. At this time we will continue follow-up. I will see the patient back in 6 months with labs. If her labs worsen or she develops any signs of lymphoproliferative disorder we will then discuss whether to obtain a bone marrow biopsy. I did suggest that if her arthritic symptoms worsen a rheumatology referral should be considered. When the patient returns we will discuss whether to continue with yearly surveillance CT scans. 2. Neuropathy - (NOS) - ICD9: 355.9, ICD10: G62.9 Stable on current medications, continue management per PCP. 3. Primary hypertension - ICD9: 401.9, ICD10: I10 Stable on current medications, continue management per PCP. 4. Hyperlipidemia - ICD9: 272.4, ICD10: E78.5 Stable on current medications, continue management per PCP. Luis Mckenzie MD [facility] [place]* Encounter Date Diagnosis Assessment Notes Treatment Notes Treatment Clinical Notes Oct, Essential hypertensi on (ICD-10 - I10) This patient is instructed to consume a healthy, low-fat, low-salt diet. They are also encouraged to continue exercise to achieve/maintain a normal BMI. Oct, Chronic bronchitis, simple (ICD-10 - J41.0) Push fluids, Mucinex as needed, cough and deep breathing, keep active. No s/s of LRI Oct, Precordial pain (ICD-10 - R07.2) Atypical chest pain, associated w/ wheezing. Not activity related and no activity limiting symptoms. No s/s consistent w/ infectious etiology. No s/s to suggest PE. Likely mild acute exacerbation of COPD. - suggest Mucinex and continue w/ normal daytime activity Oct, Palpitation (ICD-10 - R00.2) Avoid stimulants, push fluids and keep active. Holter suggested to r/o paroxysmal tachycardia, extreme bradycardia Oct, OMAR (generalized anxiety disorder) (ICD-10 - F41.1) Healthy diet and exercise. Xanax as needed 1-3x daily. Oct, Lung nodule (ICD-10 - R91.1) Continue surveillance for lung cancer w/ yearly LDCT scans. Chronic interstitial abnormalities w/o change Oct, Nicotine dependence, cigarettes, in remission (ICD-10 - F17.211) Oct, Chronic venous insufficiency (ICD-10 - I87.2) Avoid salt and elevate lower extremities, support stockings, inspect legs and feet daily for blisters and ulcerations. Oct, Gastroesophageal reflux disease with esophagitis without hemorrhage (ICD-10 - K21.00) Diet instructions: Smaller portions, avoid eating and laying flat, avoid eating or drinking prior to bedtime. Weight loss. [facility] Other 11-01-2022 Miscellaneous Notes* Telephone Encounter - Juan Manzanares RN - 08/29/2022 1:59 PM EDT VM left with [facility] message. Encouraged to call with any additional questions or concerns. Juan Manzanares RN * Telephone Encounter - Juan Manzanares RN - 08/29/2022 1:59 PM EDT ----- Message from Luis Mckenzie MD sent at 08/29/2022 1:18 PM EDT ----- Please inform the patient that her scans are stable. Chest CT actually improved with no new suspicious findings. CT abdomen shows a stable adrenal nodule. Unless new problems develop I will see her back as scheduled in November Thanks, MARBIN [facility] [place] History of Present illness Narrative* Luis Mckenzie MD - 05/29/2022 7:32 AM EDT PATIENT NAME: Lashaun Joaquin DATE: 05/29/2022 PRIMARY CARE PHYSICIAN: Nathan Hathaway DO Portions of this encounter note have been copied from my note from 11/22/2021 and has been updated where appropriate, and reflect my current medical decision making from today. CC: This is a 81 year old female with chronic neuropathy and arthritis, initially referred for evaluation of an abnormal SPEP, seen for scheduled follow-up. INTERIM HISTORY: Since the patient's last visit here she has had no significant medical changes. Her neuropathic symptoms causing numbness in her feet has not changed much. She denies any weakness orother neurological symptoms. Despite her neuropathy she remains very active. She has intermittent arthritic pain, not severe. No recent fevers or weight loss. Overall she feels relatively well. MEDICATIONS: Current Outpatient Medications Medication Sig pantoprazole DR (PROTONIX) 40 mg tablet MULTI-VITAMIN ORAL Take by mouth. calcium carbonate (CALCIUM 600 ORAL) Take by mouth. aspirin 81 mg cap Take by mouth. pravastatin sodium (PRAVASTATIN ORAL) Take 40 mg by mouth every evening. losartan (COZAAR) 100 mg tablet Take 100 mg by mouth once daily. temazepam (RESTORIL) 15 mg Take by mouth at bedtime as needed. ALPRAZolam (XANAX) 0.25 mg tablet Take 0.25 mg by mouth three times daily as needed. GABAPENTIN ORAL Take 100 mg by mouth twice daily. No current facility-administered medications for this visit. ALLERGIES: ALLERGIES Allergen Reactions Amlodipine Unknown Bactrim [Sulfametho* Unknown Cheratussin Ac [Cod* Unknown Doxycycline Hyclate Unknown Duloxetine Unknown Iodine And Iodide C* Unknown Levaquin [Levofloxa* Unknown Penicillins Unknown Tetanus And Diphthe* Unknown Tetracyclines Unknown Zofran [Ondansetron] Unknown PAST MEDICAL HISTORY: PAST MEDICAL HISTORY Diagnosis Date Cervical spondylosis Chronic venous insufficiency Dysuria-frequency syndrome Essential hypertension Estrogen deficiency OMAR (generalized anxiety disorder) GERD (gastroesophageal reflux disease) Hyperlipidemia type II Irritable bowel syndrome with diarrhea Lipoma of neck Malaise and fatigue Paresthesias Peripheral polyneuropathy Primary insomnia Ptosis of right eyelid Trochanteric bursitis of right hip Unsteady gait when walking PAST SURGICAL HISTORY: PAST SURGICAL HISTORY Procedure Laterality Date TOTAL ABD HYSTERECTOMY+BLAD REPR FAMILY HISTORY: FAMILY HISTORY Problem Relation Age of Onset Lymphoma Mother Cancer Father Leukemia Sister Multiple Sclerosis Sister Lung Cancer Brother Colon Cancer Brother Lung Cancer Brother SOCIAL HISTORY: Social History Tobacco Use Smoking status: Former Smoker Types: Cigarettes Smokeless tobacco: Never Used Substance Use Topics Alcohol use: Not on file Drug use: Not on file COMPLETE REVIEW OF SYSTEMS: CONSTITUTION: Negative for pain, fatigue, weight loss, or appetite loss. EENT: Negative for mouth soreness, antibiotics use, epistaxis, visual problems, neck or facial swelling, fever/chills, bleeding gums, or hearing loss. CV: Negative for edema, calf swelling, palpitations, or chest pain. RESPIRATORY: Negative for cough, SOB, hemoptysis, or wheezing. GI: Negative for nausea/vomiting, heartburn, vomiting blood, dysphasia, diarrhea, blood in stool, constipation, early satiety, PICA, vegetarian, poor nutrition, abdominal fullness, or abdominal pain. NEUROLOGICAL: Negative for numbness/tingling, dizziness, gait disturbance, headache, speech disturbance, tremor, hemiparesis/sensory loss, or change in mental status. MUSCULOSKELETAL: Negative for joint pain, joint swelling, or proximal muscle weakness. SKIN: Negative for hair loss, bruising, nail changes, rash, itching, pallor, or jaundice. ENDO/URO: Negative for hot flashes, cold or heat intolerance, urinary frequency, urinary hesitancy,menorrhagia, or hematuria. PSYCH: Negative for anxiety, depression, or other. PHYSICAL EXAM: BP 155/50 Pulse (!) 50 Temp 36.4 C (97.6 F) (Temporal) Resp 16 Ht 166.4 cm (5' 5.51 ) Wt 89.7 kg (197 lb 12.8 oz) SpO2 96% BMI 32.40 kg/m GENERAL EXAM: Well developed/well nourished; in no acute distress. SKIN: Negative for lesions, rashes, or ulcers on the upper and lower extremities and face. Negativefor palpations/nodules, purpura, and ecchymosis. EENT: Negative for conjunctiva, mucosal pallor, JVD, LAP, thyromegaly, and glossitis. Supple & PERRL. EXTREMITIES: Negative for cyanosis, clubbing, and crepitus. LUNGS: Negative to auscultation, respiratory effort, and percussion. CARDIOVASCULAR: Regular rate. Negative for murmurs/S3S4/abnormal sounds, edema, and carotid bruits. ABDOMEN: Negative for masses, hernia, and spleen/liver abnormalities. RECTAL: Not done PSYCHIATRIC: Negative for mood/affect changes, recent & remote memory changes, and judgement and insight. NEUROLOGICAL: Alert, oriented x person, place, time. Cranial nerves 2-12 intact. Sensory for pain, light touch, vibration intact on all 4 extremities. Reflexes symmetric for biceps/brachioradial/patella/achilles. MUSCULOSKELETAL: Thickened tissue in the right supraclavicular fossa, possible lymphadenopathy. Slight tenderness but no redness. RADIOLOGIC DATA: 08/24/2021 CT chest IMPRESSION: 1. Bilateral, patchy reticulonodular and groundglass opacities are identified within upper lobe predominance, likely infectious/inflammatory in nature. Correlation with follow-up examinations is recommended to assess for clearing. 2. A few scattered 5 mm or less nodules are identified, as above. Test on follow-up studies. 3. No substantial intrathoracic adenopathy is identified. 08/24/2021 CT abdomen/pelvis IMPRESSION: 1. Indeterminate 1.1 cm left adrenal gland nodule. Suggest correlation with follow-up examinations to assess for stability. Alternatively, for immediate further evaluation, an MRI examination of the adrenal glands would be recommended. 2. Sigmoid diverticulosis, without CT evidence for acute diverticulitis. LABS: Hemoglobin (g/dL) Date Value 05/22/2022 11.1 11/15/2021 11.5 Hematocrit (%) Date Value 05/22/2022 34.2 11/15/2021 36.1 WBC (k/uL) Date Value 05/22/2022 5.66 11/15/2021 5.96 Platelet Count (k/uL) Date Value 05/22/2022 288 11/15/2021 274 ASSESSMENT/PLAN: 1. Abnormal SPEP - ICD9: 790.99, ICD10: R77.8 (primary diagnosis) The patient presented in June 2021 with complaints of increasing numbness and tingling sensation of her legs consistent with neuropathy. Labs obtained 07/06/2021 revealed an abnormal SPEP with an elevated IgM of 340 and an elevated serum free kappa with a kappa/lambda ratio 3.2. Her IgG and IgA levels were normal, and no M spike was observed. Other than neuropathy the patient had no suspicioussystemic symptoms, and observation was recommended. Labs obtained 08/01/2021 revealed a markedly elevated sed rate. Repeat SPEP showed slight elevation of the IgM as before. No specific M spike was seen, but a faint area suggesting a possible monoclonal protein. CT scans to rule out malignancy revealed small pulmonary nodules and a left adrenal glandnodule of unclear significance. Repeat labs obtained 11/15/2021 revealed her IgM and sed rate were slightly improved, and once again no evidence of an M spike. It was felt that the patient's elevated IgM and sed rate were from underlying inflammation rather than malignancy and continued observation was recommended. Most recent labs 05/22/2022 were stable. At this time we will continue follow-up. We elected to repeat her CT scans at 12 months for follow-up of the pulmonary nodules and left adrenal gland nodule. Assuming her follow-up scans are stable Iwill see her back in 6 months with repeat protein analysis. If her labs worsen or she develops any signs of lymphoproliferative disorder we will then discuss whether to arrange a bone marrow biopsy. I did suggest that if her arthritic symptoms worsen a rheumatology referral should be considered. 2. Neuropathy - (NOS) - ICD9: 355.9, ICD10: G62.9 Stable on current medications, continue management per PCP. 3. Primary hypertension - ICD9: 401.9, ICD10: I10 Stable on current medications, continue management per PCP. 4. Hyperlipidemia - ICD9: 272.4, ICD10: E78.5 Stable on current medications, continue management per PCP. Luis Mckenzie MD documented in [facility] [place] complaint Narrative - Reported * LASHAUN JOAQUIN is being seen for a consultation for abnormal test(s) results. * 82-year-old female seen in cardiology consultation at the request of Dr. Natalio hathaway for recent episode of respiratory distress, what sounds like congestive heart failure associated with accelerated hypertension, was admitted to [facility] briefly, diuresed approximately 14 pounds with diuretics. She fol lowed up with stress imaging that revealed preserved left ventricular function, ejection fraction of 73%, and anterior perfusion defect with redistribution suggestive of ischemia. * Echocardiogram confirmed normal left ventricular function and no significant valvular abnormality per outside echo report. Chest x-ray revealed possible pulmonary edema versus multifocal pneumonia, second chest x-ray 1 day later revealed improved opacities. * Today's ECG reveals sinus bradycardia at a rate of 45 and is otherwise normal. * Patient has no prior history of myocardial infarction, revascularization, stroke, thromboembolic orbleeding disorder * She is treated for hypertension * She is a former smoker, nondiabetic * Risks, benefits, alternatives and informed decision-making process performed with patient and family for over 30 minutes this morning in regards to consideration for further imaging by means of either cardiac CTA versus cardiac catheterization with possible revascularization. We did describe anatomy and the possibility of LAD disease. * After conferring with family members, patient decided to proceed with heart catheterization. We will continue with aspirin but escalated to 81 mg daily and proceed with heart cath this Sunday -[facility] [address] DO Work Phone: Evaluation note* Diagnosis Abnormal SPEP- Primary Other nonspecific findings on examination of blood Neuropathy - (NOS) 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 Lung nodules Other nonspecific abnormal finding of lung field documented in this encounter [facility] note* Diagnosis Abnormal SPEP- Primary Other nonspecific findings on examination of blood Neuropathy - (NOS) Lung nodules Other nonspecific abnormal finding of lung field [facility] [place] noteNo InformationNort [place] Other Evaluation noteNo assessment information available [facility] Work Phone: Evaluation note* Diagnosis Onset Date Resolution Status Flash pulmonary edema acute Heart failure acute Hypertension acute Hypertensive emergency acute Hypoxia acute [facility] Work Phone: Evaluation note* Diagnosis Abnormal SPEP- Primary Other nonspecific findings on examination of blood Anemia, unspecified type Neuropathy - (NOS) Heart disease Heart disease, unspecified [facility] [place]* Diagnosis Onset Date Resolution Status ASHD (arteriosclerotic heart disease) acute Chronic diastolic heart failure acute Chronic venous insufficiency acute Elevated cholesterol acute Essential hypertension acute OMAR (generalized anxiety disorder) acute Gastroesophageal reflux dise ase with esophagitis without hemorrhage acute 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 [facility] Work Phone: History general Narrative - Reported* Type Description Date Medical History Submandibular lymphadenopathy Medical History Chronic venous insufficiency Medical History Nicotine dependence, cigarettes, in remission Medical History Restless leg syndrome Medical History Pain in right leg Medical History Menopause Medical History Chronic pain of right knee Medical History Hip pain, right Medical History Adverse effect of un specified drugs, medicaments and biological substances, subsequent encounter Medical History MGUS (monoclonal gammopathy of u nknown significance) Medical History Lung nodule Medical History Adrenal nodule Medical History Elevated serum immunoglobulin fr ee light chain level Medical History Adrenal nodule Medical History Irritable bowel syndrome with di arrhea Medical History Trochanteric bursitis of right h ip Medical History UTI symptoms Medical History Unsteady gait Medical History Cervical spondylosis with radicu lopathy Medical History Lipoma of neck Medical History Ptosis of right eyelid Medical History Tendinitis, de Quervain's Medical History Neuropathy, peripheral Medical History Complaint of paresthesia Medical History Primary insomnia Medical History Atrophic vaginitis Medical History Chronic bronchitis, simple Medical History Hyperlipidemia type II Medical History Mild obesity Medical History OMAR (generalized anxiety disorde r) Medical History Essential hypertension Medical History Gastroesophageal ref lux disease with esophagitis without hemorrhage Medical History Ground glass opacity present on imaging of lung Medical History Estrogen deficiency Medical History Vagina itching Medical History Malaise Medical History Exogenous obesity Medical History Anemia Surgical History catarac sugery 2009 Surgical History Colonoscopy 2012 Hospitalization History see surgical history Populr Other History general Narrative - Reported* Type Description Date Medical History Submandibular lymphadenopathy Medical History Chronic venous insufficiency Medical History Nicotine dependence, cigarettes, in remission Medical History Restless leg syndrome Medical History Pain in right leg Medical History Menopause Medical History Chronic pain of right knee Medical History Hip pain, right Medical History Adverse effect of un specified drugs, medicaments and biological substances, subsequent encounter Medical History MGUS (monoclonal gammopathy of u nknown significance) Medical History Lung nodule Medical History Adrenal nodule Medical History Elevated serum immunoglobulin fr ee light chain level Medical History Adrenal nodule Medical History Irritable bowel syndrome with di arrhea Medical History Trochanteric bursitis of right h ip Medical History UTI symptoms Medical History Unsteady gait Medical History Cervical spondylosis with radicu lopathy Medical History Lipoma of neck Medical History Ptosis of right eyelid Medical History Tendinitis, de Quervain's Medical History Neuropathy, peripheral Medical History Complaint of paresthesia Medical History Primary insomnia Medical History Atrophic vaginitis Medical History Chronic bronchitis, simple Medical History Hyperlipidemia type II Medical History Mild obesity Medical History OMAR (generalized anxiety disorde r) Medical History Essential hypertension Medical History Gastroesophageal ref lux disease with esophagitis without hemorrhage Medical History Ground glass opacity present on imaging of lung Medical History Estrogen deficiency Medical History Vagina itching Medical History Malaise Medical History Exogenous obesity Medical History Anemia Surgical History catarac sugery 2008 Surgical History Colonoscopy 2012 Surgical History PCI/stent RCA and diagonal br Hospitalization History see surgical history Populr Other Hospital Discharge instructions Additional Instructions Please take your Lasix every other day as originally prescribed, your goal weight is 195 pounds. If you notice your weight trending up and gets above 200, please take an extra dose as your primary care physician instructed you to. Your new dose of carvedilol or Coreg is 12.5 mg twice daily, if you notice yourself then lightheaded or have a blood pressure less than 120 systolic at home, please do not take and call your primary care physician, this dose worked well to control your blood pressure in the hospital.[facility] Work Phone: Advance Directives Documents on File Type Date Recorded Patient Information Engineer Expl anation Advance Directive(s) 08/01/2021 12:55 PM A dvance Directives Documents on File Type Date Recorded Patient Information Engineer Expl anation Advance Directive(s) 08/01/2021 12:55 PM A dvance Directives Advance Directive Response Recorded Date/ Time Advance Directives No March 07 1:03pm Reason for Referral Specialty Diagnoses / Procedures Referred By Contac t Referred To Contact CT IMAGING Diagnoses Lung nodules Procedures CT CHEST W IVCON DIAGNOSTIC COMPUTED TOMOGRAPHY THORAX W/CONTRAST Luis Mckenzie MD [address] [place] [address] [address] [place] [address] Ct Imaging Referral ID Status Reason Start Date Expiration Date Visits Requested Visits Authorized [id number] Authorized Auto-Generat ed Referral 05/29/2022 06/28/2023 1 1 Specialty Diagnoses / Procedures Referred By Contac t Referred To Contact CT IMAGING Diagnoses Disorder of adrenal gland (HCC) Procedures CT ABD/PEL W IVCON CT ABD & PELVIS W/CONTRAST Luis Mckenzie MD [address] [place] [address] [address] [place] [address] Ct Imaging Referral ID Status Reason Start Date Expiration Date Visits Requested Visits Authorized [id number] Authorized Auto-Generat ed Referral 05/29/2022 06/28/2023 1 1 Family History Unknown Family Member Name Dates Details Cardiac defibrillator in jorge ce: Mother, Brother Status:Active Family history of hypertensi on: Father, Brother(V17.49, Z82.49) Status:Active Family history of coronary a rtery disease: Father(V17.3, Z82.49) Status:Active Family history of malignant neoplasm: Sister, Brother(V16.9, Z80.9) Status:Active Relationship Condition Age at Onset Recorded Date/T jerzy brother Type 2 diabetes mellitus Unknown Heart disease Unknown father Myocardial infarction Unknown Not Specified History of implantab le cardioverter-defibrillator (ICD) insertion Unknown brother Malignant neoplasm of kidney Unknown sister Multiple sclerosis Unknown Leukemia Unknown brother Malignant neoplasm of lung Unknown Exposure to Agent Custer Unknown brother Malignant neoplasm of colon Unknown brother Malignant neoplasm of urinary bladder Unk nown Unknown Family Member Name Dates Details Cardiac defibrillator in jorge ce: Mother, Brother Status:Active Family history of hypertensi on: Father, Brother(V17.49, Z82.49) Status:Active Family history of coronary a rtery disease: Father(V17.3, Z82.49) Status:Active Family history of malignant neoplasm: Sister, Brother(V16.9, Z80.9) Status:Active Unknown Family Member Name Dates Details Cardiac defibrillator in jorge ce: Mother, Brother Status:Active Family history of hypertensi on: Father, Brother(V17.49, Z82.49) Status:Active Family history of coronary a rtery disease: Father(V17.3, Z82.49) Status:Active Family history of malignant neoplasm: Sister, Brother(V16.9, Z80.9) Status:Active Relationship Condition Age at Onset Recorded Date/T jerzy brother Type 2 diabetes mellitus Unknown Heart disease Unknown father Myocardial infarction Unknown Not Specified History of implantab le cardioverter-defibrillator (ICD) insertion Unknown brother Malignant neoplasm of kidney Unknown sister Multiple sclerosis Unknown Leukemia Unknown brother Malignant neoplasm of lung Unknown Exposure to Agent Custer Unknown brother Malignant neoplasm of colon Unknown brother Malignant neoplasm of urinary bladder Unk nown brother Malignant neoplasm Unknown father Unknown Not Specified Unknown Summary Purpose Chief Complaint and Reason for Visit Chief Complaint Angina Class 3 Chief Complaint Angina Class 3 Angina Class 3 Difficulty breathing Reason for Visit Flash pulmonary chon a Heart failure Hypertension Hypertensive emergency Hypoxia Chief Complaint Amb Documentation Medicare Wellness Reason for Visit ASHD (arteriosclerot ic heart disease) Chronic diastolic heart failure Chronic venous insufficiency Elevated cholesterol Essential hypertension OMAR (generalized anxiety disorder) Gastroesophageal reflux disease with esophagitis without hemorrhage MGUS (monoclonal gammopathy of unknown significance) Additional Source Comments Source Comments (unrecognize d section and content) In the event this informatio n is protected by the Federal Confidentiality of Alcohol and Drug Abuse Patient Records regulations: The Federal rules restrict any use of the information to criminally investigate or prosecute any alcohol or drug abuse patient[facility] [place] the event this information is protected by the Federal Confidentiality of Alcohol and Drug Abuse Patient Records regulations: The Federal rules restrict any use of the information to criminally investigate or prosecute any alcohol or drug abuse patient.[facility] [place] the event this information is protected by the Federal Confidentiality of Alcohol and Drug Abuse Patient Records regulations: The Federal rules restrict any use of the information to criminally investigate or prosecute any alcohol or drug abuse patient.[facility] [place] the event this information is protected by the Federal Confidentiality of Alcohol and Drug Abuse Patient Records regulations: The Federal rules restrict any use of the information to criminally investigate or prosecute any alcohol or drug abuse patient.[facility] [place] the event this information is protected by the Federal Confidentiality of Alcohol and Drug Abuse Patient Records regulations: The Federal rules restrict any use of the information to criminally investigate or prosecute any alcohol or drug abuse patient.[facility] [place] the event this information is protected by the Federal Confidentiality of Alcohol and Drug Abuse Patient Records regulations: The Federal rules restrict any use of the information to criminally investigate or prosecute any alcohol or drug abuse patient.[facility] Reason for Visit (unrecogniz ed section and content) Reason Comments Lab Orders Reason Comments abnormal spep Reason Comments Results Reason Comments Abnormal SPEP Care Teams (unrecognized sec tion and content) Team Status: Active Member Role Status Dates Nathan Hathaway DO Primary Care Provider Active Team Status: Active Member Role Status Dates Nathan Hathaway DO Primary Care Provider Active Start: December 18, 2023 URIEL Sunshine Attending Provider Active Start : December 18, 2023 Team Status: Inactive Member Role Status Dates Nathan Hathaway DO Primary Care Provide r, Attending Provider Active Start: February 01, 2024 End: February 01, 2024 Garage Door Installer Relationship Specialty Start Date End Date Nathan Hathaway DO PCP - General Internal Medicine 01/31/12 Garage Door Installer Relationship Specialty Start Date End Date Nathan Hathaway DO PCP - General Internal Medicine 01/31/12 Garage Door Installer Relationship Specialty Start Date End Date Nathan Hathaway DO PCP - General Internal Medicine 01/31/12 Garage Door Installer Relationship Specialty Start Date End Date Nathan Hathaway DO PCP - General Internal Medicine 01/31/12 Team Status: Active Member Role Status Dates Nathan Hathaway DO Primary Care Provider Active Team Status: Inactive Member Role Status Dates Jonna Reyes DO Attending Provider Active Nathan Hathaway DO Primary Care Provider Active Team Status: Inactive Member Role Status Dates Nathan Hathaway DO Primary Care Provider Active Parris Ch DO Emergency Provider Active Lj Ryan DO Admit Provider, Attending Provider Active Garage Door Installer Relationship Specialty Start Date End Date Nathan Hathaway DO PCP - General Internal Medicine 01/31/12 Garage Door Installer Relationship Specialty Start Date End Date Nathan Hathaway DO PCP - General Internal Medicine 01/31/12 Team Status: Active Member Role Status Dates Nathan Hathaway DO Primary Care Provider Active Start: December 18, 2023 URIEL Sunshine Attending Provider Active Start : December 18, 2023 Team Status: Inactive Member Role Status Dates Nathan Hathaway DO Primary Care Provide r, Attending Provider Active Start: February 01, 2024 End: February 01, 2024 INFORMATION SOURCE (unrecogn ized section and content) DATE CREATED AUTHOR 03/08/2023 [facility] DATE CREATED AUTHOR AUTHOR'S ORGANIZ ATION 03/09/2023 [employer] DATE CREATED AUTHOR AUTHOR'S ORGANIZ ATION 03/11/2023 [facility] DATE CREATED AUTHOR AUTHOR'S ORGANIZ ATION 05/25/2023 [facility] DATE CREATED AUTHOR AUTHOR'S ORGANIZ ATION 10/21/2023 [facility] DATE CREATED AUTHOR AUTHOR'S ORGANIZ ATION 11/08/2023 [facility] Goals (unrecognized section and content) Goals may be documented in a n alternate section FOR RECORDS PERTAINING TO PATIENTS WHO ARE OR HAVE BEEN ENROLLED IN A CHEMICAL DEPENDENCY/SUBSTANCEABUSE PROGRAM, SOME INFORMATION MAY BE OMITTED. This clinical summary was aggregated from multiple sources. Caution should be exercised in using it in the provision of clinical care. This summary normalizes information from multiple sources, and as a consequence, information in this document may materially change the coding, format and clinical context of patient data. In addition, data may be omitted in some cases. CLINICAL DECISIONS SHOULD BE BASED ON THE PRIMARY CLINICAL RECORDS. [facility] [employer] [facility]. provides no warranty or guarantee of the accuracy or completeness of information in this document.
[2024-02-02 08:12] LABS: Basophils Absolute Auto 0.1 10^3/uL (0.0-0.1); Basophils Percent Auto 1.1 % (0.2-2.0); Eosinophils Absolute Auto 0.1 10^3/uL (0.0-0.7); Eosinophils Percent Auto 2.3 % (0.9-7.0); Hematocrit 34.7 % (36.0-48.0); Hemoglobin 10.9 g/dL (12.0-16.0); Immature Granulocytes Abs Auto 0.02 10^3/uL (0.00-0.03); Immature Granulocytes Pct Auto 0.4 % (0.0-0.5); Lymphocytes Absolute Auto 1.1 10^3/uL (1.2-3.8); Lymphocytes Percent Auto 20.2 % (20.5-60.0); Mean Corpuscular HGB Conc 31.4 g/dL (29.9-35.2); Mean Corpuscular Hemoglobin 29.8 pg (26.7-34.0); Mean Corpuscular Volume 94.8 fL (81.0-99.0); Mean Platelet Volume 10.6 fL (9.5-13.5); Monocytes Absolute Auto 0.7 10^3/uL (0.3-0.8); Monocytes Percent Auto 11.7 % (1.7-12.0); Neutrophils Absolute Auto 3.6 10^3/uL (1.4-6.5); Neutrophils Percent Auto 64.3 % (43.0-75.0); Platelet Count 253 10^3/uL (150-450); Red Blood Count 3.66 10^6/uL (4.20-5.40); Red Cell Distribution Width 13.1 % (11.0-15.0); White Blood Count 5.6 10^3/uL (4.0-11.0)
[2024-02-02 10:25] LABS: Alanine Aminotransferase 13 U/L (14-59); Albumin Globulin Ratio 1.1; Albumin Level 3.4 g/dL (3.4-5.0); Alkaline Phosphatase 52 U/L (46-116); Anion Gap 13.1; Aspartate Amino Transferase 14 U/L (15-37); BUN Creatinine Ratio 16.3; Bilirubin Total 0.3 mg/dL (0.2-1.0); Calcium 9.3 mg/dL (8.5-10.1); Carbon Dioxide 29.8 mmol/L (21.0-32.0); Chloride 109 mmol/L (98-107); Chol HDL Ratio 3.8; Cholesterol 169 mg/dL (<=200); Estimated GFR (African America 41 (>=60); Estimated GFR (Non-African Ame 34 (>=60); Glucose 104 mg/dL (74-106); HDL Cholesterol 45 mg/dL (40-60); LDL Cholesterol Calculated 113.6 mg/dL; Potassium 4.9 mmol/L (3.5-5.1); Sodium 147 mmol/L (136-145); Thyroid Stimulating Hormone 3.613 uIU/mL (0.358-3.740); Total Protein 6.4 g/dL (6.4-8.2); Triglycerides 52 mg/dL (<=150); VLDL CHOLESTEROL 10.4 mg/dL
== END 2024-02-02 07:50 | disposition home or self-care (01) ==
LOC: LAB 07:51
PROVIDERS: PCP Internal Medicine; Visit Provider Internal Medicine
DX: D64.9 Anemia, unspecified (principal); I25.10 Atherosclerotic heart disease of native coronary artery without angina pectoris; D47.2 Monoclonal gammopathy; I10 Essential (primary) hypertension; E78.00 Pure hypercholesterolemia, unspecified; R53.83 Other fatigue
CPT/HCPCS: 36415; 80053; 80061; 84443; 85025

== ENCOUNTER 2024-02-18 14:10 | Inpatient (IN) | payer MEDICARE, SELFPAY ==
[2024-02-18] VITALS (31 sets, daily range): BP systolic 158–200; BP diastolic 52–80; PULSE 45–73; TEMP 36.6–36.7; O2SAT 94–100; BMI 32.4; BMI 33.6
--- NOTE | 2024-02-18 14:23 | ECG_ITS ---
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
--- NOTE | 2024-02-18 14:23 | XR_ITS ---
The [address] [address] Patient Name: LASHAUN JOAQUIN MRN: [id number] date: 1940 Sex: F Assigned Patient Location: ER Current Patient Location: ER Accession/Order Number: [id number] Exam Date: 02/18/2024 14:43 Report Date: 02/18/2024 15:17 At the request of: MOUNA COLLINS Procedure: XR chest 1V EXAMINATION: XR chest 1V HISTORY: chest pain COMPARISON: 07/27/2023 TECHNIQUE: AP portable FINDINGS: LUNGS: No significant pulmonary parenchymal abnormalities. VASCULATURE: No increased pulmonary vasculature. PLEURA: No pneumothorax, effusion, or pleural thickening. CARDIAC: No cardiomegaly or cardiac silhouette abnormality. MEDIASTINUM: No visible mass or adenopathy. Aortic atherosclerosis BONES: No fracture or visible bone lesion. OTHER: Negative. XR/XR chest 1V IMPRESSION: No acute cardiopulmonary process Electronically authenticated by: WILLIAM PATEL Date: 02/18/2024 15:17
[2024-02-18 14:39] LABS: Basophils Percent Auto 0.4 % (0.2-2.0); Eosinophils Absolute Auto 0.1 10^3/uL (0.0-0.7); Eosinophils Percent Auto 1.2 % (0.9-7.0); Hematocrit 31.7 % (36.0-48.0); Hemoglobin 10.3 g/dL (12.0-16.0); Immature Granulocytes Abs Auto 0.05 10^3/uL (0.00-0.03); Immature Granulocytes Pct Auto 0.7 % (0.0-0.5); Lymphocytes Absolute Auto 0.8 10^3/uL (1.2-3.8); Lymphocytes Percent Auto 11.2 % (20.5-60.0); Mean Corpuscular HGB Conc 32.5 g/dL (29.9-35.2); Mean Corpuscular Hemoglobin 29.3 pg (26.7-34.0); Mean Corpuscular Volume 90.1 fL (81.0-99.0); Mean Platelet Volume 10.1 fL (9.5-13.5); Monocytes Absolute Auto 0.6 10^3/uL (0.3-0.8); Monocytes Percent Auto 9.5 % (1.7-12.0); Neutrophils Absolute Auto 5.2 10^3/uL (1.4-6.5); Platelet Count 255 10^3/uL (150-450); Red Blood Count 3.52 10^6/uL (4.20-5.40); Red Cell Distribution Width 13.2 % (11.0-15.0); White Blood Count 6.8 10^3/uL (4.0-11.0)
[2024-02-18 14:56] LABS: Anion Gap 11.7; BUN Creatinine Ratio 14.4; Carbon Dioxide 30.4 mmol/L (21.0-32.0); Chloride 106 mmol/L (98-107); Estimated GFR (African America 42 (>=60); Estimated GFR (Non-African Ame 34 (>=60); Glucose 102 mg/dL (74-106); Potassium 4.1 mmol/L (3.5-5.1); Sodium 144 mmol/L (136-145); Troponin I High Sensitivity 8.8 pg/mL (4.0-51.3)
[2024-02-18 16:41] LABS: Troponin I High Sensitivity 11.1 pg/mL (4.0-51.3)
--- NOTE | 2024-02-18 17:24 | CA_ITS ---
Patient Name: LASHAUN JOAQUIN MR#: [id number] : 1940 Exam Date: 02/19/2024 Ordering Doctor: SUMMER ZUNIGA . ECHOCARDIOGRAM REPORT PROCEDURE: CA ECHO DOPPLER COMPLETE INDICATIONS: hypertension, bradycardia, cardiac stent, hypertension COMPARISON: None. DESCRIPTION: COMPLETE ECHOCARDIOGRAM Real-time transthoracic echocardiography with 2D, M-mode, spectral and color flow Doppler performed. QUALITY: Technical quality was good. 65 , 195#, BSA 1.96 m2, BP 165/76 LEFT VENTRICLE: Normal chamber size. Normal left ventricular wall thickness. Normal systolic function. LV EF: Normal left ventricular ejection fraction, (>55%). DIASTOLIC: Grade II diastolic dysfunction. ATRIAL SEPTUM: Visually appears intact. LEFT ATRIUM: Mild chamber dilatation. RIGHT ATRIUM: Mild chamber dilatation. RIGHT VENTRICLE: Normal chamber size. Normal right ventricular systolic function. TRICUSPID VALVE: Normal mobility and thickness. No stenosis with mild regurgitation. Doppler studies reveal mildly (35-45) elevated right sided pressures. RVSP 41 mmHg MITRAL VALVE: Normal mobility and thickness. No evidence of mitral valve stenosis. There is no mitral annular calcification. Trivial mitral regurgitation. AORTIC VALVE: Normal trileaflet appearance. No visible sclerosis. Normal leaflet mobility. No evidence of aortic valve stenosis. No aortic regurgitation. AORTIC ROOT: Normal diameter and appearance. Ascending aorta is normal in size. PULMONIC VALVE: Normal thickness and mobility. No stenosis. No regurgitation. PERICARDIUM: No evidence of pericardial effusion. IVC: Collapses with inspirations. IVC is normal in size. PLEURA: CONCLUSION: 1. The left ventricle is normal in size and exhibits normal systolic function. LVEF is 60%. 2. Normal right ventricular size and systolic function. 3. Grade 2 diastolic dysfunction. 4. No significant valvular dysfunction. 5. Mildly elevated right-sided pressures. Adult Echocardiography Procedure Report Left Ventricle LVEDD (3.7 - 5.6 cm): 4.63 cm LVESD (2.2 - 4.0 cm): 2.53 cm LVIVS thickness (0.6 - 1.2 cm): 0.68 cm LVPW thickness (0.5 - 1.0 cm): 0.68 cm e': 0.10 m/s E - e': 12.08 LVOT Max Gradient: 4.38 mm[Hg] LVOT Area (cm2): 1.05 m/s Peak Velocity (LVOT): 1.05 m/s Mean Velocity (LVOT): 0.66 m/s LVOT Diameter 2.25 cm Left Atrium LA Volume Index (2D A2C): 21.46 ml/m2 Left Atrium Systolic Dimension: 3.70 cm Mitral Valve MV E to A Ratio: 1.72 Mitral Valve A-Wave Peak Velocity: 0.68 m/s Mitral Valve E-Wave Peak Velocity: 1.17 m/s Right Ventricle Aorta AO Root Diam: 2.95 cm Ascending Ao Diam: 2.52 cm Aortic Valve AoV Area (Peak Juan Antonio): 3.01 cm2, 3.01 cm2 AoV Area (VTI): 3.20 cm2, 3.20 cm2 Peak Velocity(Antegrade Flow): 1.39 m/s Peak Gradient(Antegrade Flow): 7.70 mm[Hg] Mean Velocity(Antegrade Flow): 0.87 m/s Mean Gradient(Antegrade Flow): 3.57 mm[Hg] Velocity Time Integral: 35.57 cm Tricuspid Valve Peak Velocity (Regurgitant Flow): 3.10 m/s, 4.43 m/s Pulmonic Valve Peak Velocity: 1.12 m/s Peak Gradient: 4.05 mm[Hg], 6.08 mm[Hg] Right Atrium Right Atrium Systolic Pressure: 45.55 ml, 45.55 ml Dictated by: Jaquan Payne M.D. on 02/19/2024 at 17:12 Approved by: Jaquan Payne M.D. on 02/19/2024 at 17:18
--- NOTE | 2024-02-18 17:37 | ED_ITS ---
HPI HPI - General Adult General Chief complaint: Recheck/Abnormal Lab/Rx Stated complaint: ABNORMAL LAB VALUES Time Seen by Provider: 02/18/24 14:10 Source: patient Mode of arrival: walk-in Limitations: no limitations History of Present Illness HPI narrative: 83-year-old female to the emergency room chief complaint of some chest pain this morning, bradycardia, hypertension.. She reports that her primary care office's been following closely her elevated blood pressure. She went in for a check today and notified them that she was having intermittent chest pressure. She also told them that her heart rate fell below. She reports she is occasionally been dizzy. She reports recent changes to her blood pressure medications but is unclear on details. Related Data Home Medications ?Medication ?Instructions ?Recorded ?Confirmed alprazolam 0.25 mg tablet 0.25 mg PO BID PRN anxiety 04/11/23 02/18/24 aspirin 81 mg tablet,delayed 81 mg PO DAILY 04/11/23 02/18/24 release carvedilol 3.125 mg tablet 3.125 mg PO Q12H 04/11/23 02/18/24 furosemide 20 mg tablet 20 mg PO DAILY 04/11/23 02/18/24 gabapentin 100 mg capsule 100 mg PO Q12H 04/11/23 02/18/24 pravastatin 40 mg tablet 40 mg PO .dinner 04/11/23 02/18/24 temazepam 15 mg capsule (Restoril) 15 mg PO .hs PRN sleep 04/11/23 02/18/24 clopidogrel 75 mg tablet 75 mg PO DAILY 07/27/23 02/18/24 losartan 50 mg tablet 50 mg PO BID 07/27/23 02/18/24 furosemide 20 mg tablet (Lasix) 20 mg PO DAILY PRN weight gain 07/28/23 02/18/24 ropinirole 0.25 mg tablet 0.25 mg PO .dinner PRN restless 07/28/23 02/18/24 leg(s) cefdinir 300 mg capsule 300 mg PO Q12H 02/18/24 02/18/24 potassium chloride 10 mEq 10 meq PO DAILY 02/18/24 02/18/24 tablet,extended release rosuvastatin 40 mg tablet 40 mg PO DAILY 02/18/24 02/18/24 Allergies Allergy/AdvReac Type Severity Reaction Status Date / Time azithromycin Allergy Severe Verified 09/28/23 14:15 amlodipine Allergy Verified 07/27/23 02:13 doxycycline Allergy Verified 07/27/23 02:13 duloxetine [From Cymbalta] Allergy Verified 07/27/23 02:13 ondansetron [From Zofran] Allergy Verified 07/27/23 02:13 sulfamethoxazole Allergy Verified 07/27/23 02:13 [From Bactrim] tetanus and diphtheria Allergy Verified 07/27/23 02:13 toxoids trimethoprim [From Bactrim] Allergy Verified 07/27/23 02:13 codeine AdvReac Severe Anxiety Verified 09/25/23 11:07 Opioid HPI Opioid Management Most Recent Opioid Data: Last Pain Scale 0 07/27/23 04:14 Review of Systems ROS Status of ROS 10 or more systems reviewed and unremark able except as noted in history and below [facility] Medical History (Updated 02/18/24 @ 17:43 by Bassam Cortes MD) HTN (hypertension) ?I10 - Essential (primary) hypertension (ICD-10) GERD (gastroesophageal reflux disease) ?K21.9 - Gastro-esophageal reflux disease without esophagitis (ICD-10) Pneumonia due to COVID-19 virus ?U07.1 - COVID-19 (ICD-10) ?J12.82 - Pneumonia due to coronavirus disease 2019 (ICD-10) COVID-19 ?U07.1 - COVID-19 (ICD-10) Obesity ?E66.9 - Obesity, unspecified (ICD-10) Coronary artery disease ?I25.10 - Atherosclerotic heart disease of [place] coronary artery without angina pectoris (ICD-10) Surgical History Family History Brother Family history of diabetes mellitus Family history of cancer Sister Family history of cancer Social History Within the past year, how often did you have a drink containing alcohol: never Within the past year, how often did you have six or more drinks on one occasion: never Score interpretation: A score less than 3 is consistent with normal alcohol consumption. Smoking status: Never smoker Non-prescribed substance use: denies use Previous occupational history: retired Known occupational exposures/hazards: No Highest level of school completed/degree received: 11th grade Do you want help with school or training: No Are you now , , , , never or living with a partner: In a typical week, how many times do you talk on the telephone with family, friends, or neighbors: twice per week How often do you get together with friends or relatives: twice per week How often do you attend holiness or worship services: 1-3 times per year Do you belong to any clubs or organizations such as holiness groups unions, fraternal or athletic groups, or school groups: yes Total score: 3 Score interpretation: A score of greater than or equal to 2 indicates the lowest level of social isolation. Little interest or pleasure in doing things: not at all Feeling down, depressed, or hopeless: not at all Feel stressed/tense/nervous/anxious/difficulty sleeping: only a little Due to disability, difficulty making decisions: No Do you think of yourself as: straight/heterosexual Gender Identity: female Exam Narrative Exam Narrative: VITALS: I have reviewed the triage vital signs. GENERAL: Well developed, well appearing adult in no acute distress. NEURO: Alert and oriented. Moves all extremities. Face is symmetric and expressive. EYES: PERRL. No scleral icterus or conjunctival injection. No discharge. HENT: Normocephalic, atraumatic. Hearing is grossly intact. Nares grossly patent and without discharge. Mucous membranes moist. NECK: No JVD. Patient moves neck without restriction. CARDIO: Rhythm regular. Normal rate. No murmur, rub, or gallop. Pulses equal bilaterally in the upper and lower extremity. No lower extremity edema. PULM: Lungs clear to auscultation in all bob. No wheezes, rales, or rhonchi. No conversational dyspnea. No splinting, stridor, or accessory muscle use. GI/: Abdomen is soft and non-tender. Normoactive bowel sounds. EXTREMITIES: Symmetric muscle bulk. No joint swelling. No clubbing, cyanosis, or deformity. SKIN: Warm and dry. Normal turgor. No rash or lesions appreciated. PSYCH: Mood, affect, and interaction is appropriate to the setting. Constitutional Vital Signs, click to edit/add: Last Vital Signs Temp 97.9 F 02/18/24 14:13 Pulse 50 L 02/18/24 16:01 Resp 16 02/18/24 16:01 BP 173/53 H 02/18/24 16:01 Pulse Ox 96 02/18/24 16:01 Course Vital Signs Vital signs: Vital Signs Temperature 97.9 F 02/18/24 14:13 Pulse Rate 53 L 02/18/24 14:13 Respiratory Rate 18 02/18/24 14:13 Blood Pressure 181/57 H 02/18/24 14:13 Pulse Oximetry 100 02/18/24 14:13 Temperature 97.9 F 02/18/24 14:13 Pulse Rate 50 L 02/18/24 16:01 Respiratory Rate 16 02/18/24 16:01 Blood Pressure 173/53 H 02/18/24 16:01 Pulse Oximetry 96 02/18/24 16:01 Medical Decision Making MDM Narrative Medical decision making narrative: 83-year-old female sent by PCP for bradycardia, hypertension, chest pain. Bradycardic and hypertensive on arrival. Otherwise stable vitals. Cardiac workup was initiated. EKG is without evidence of obvious ischemia. She was on telemetry monitoring remained sinus bradycardia rate of 40-50. Initial troponin is negative. She is moderate risk by HEART score. Repeat troponin is also within normal limits. I did call and discuss with Deja who is covering for the patient's PCP. After discussion plan will be for admission for management of her blood pressure chest pain. Case discussed with Dr. Harris who agrees to admit to her service. Patient agrees with this plan. Medical Records Medical records reviewed: Yes I reviewed the patient's medical records Lab Data Lab results reviewed: Yes I reviewed the patient's lab results Labs: Lab Results 02/18/24 02/18/24 Range/Units 14:30 16:15 WBC 6.8 (4.0-11.0) 10^3/uL RBC 3.52 L (4.20-5.40) 10^6/uL Hgb 10.3 L (12.0-16.0) g/dL Hct 31.7 L (36.0-48.0) % MCV 90.1 (81.0-99.0) fL MCH 29.3 (26.7-34.0) pg MCHC 32.5 (29.9-35.2) g/dL RDW 13.2 (11.0-15.0) % Plt Count 255 (150-450) 10^3/uL MPV 10.1 (9.5-13.5) fL Neut % (Auto) 77.0 H (43.0-75.0) % Lymph % (Auto) 11.2 L (20.5-60.0) % [place] % (Auto) 9.5 (1.7-12.0) % Eos % (Auto) 1.2 (0.9-7.0) % Baso % (Auto) 0.4 (0.2-2.0) % Neut # (Auto) 5.2 (1.4-6.5) 10^3/uL Lymph # (Auto) 0.8 L (1.2-3.8) 10^3/uL [place] # (Auto) 0.6 (0.3-0.8) 10^3/uL Eos # (Auto) 0.1 (0.0-0.7) 10^3/uL Baso # (Auto) 0.0 (0.0-0.1) 10^3/uL Abs Immat Gran (auto) 0.05 H (0.00-0.03) 10^3/uL Imm/Tot Granulo (auto) 0.7 H (0.0-0.5) % Sodium 144 (136-145) mmol/L Potassium 4.1 (3.5-5.1) mmol/L Chloride 106 (98-107) mmol/L Carbon Dioxide 30.4 (21.0-32.0) mmol/L Anion Gap 11.7 BUN 21.0 H (7.0-18.0) mg/dL Creatinine 1.46 H (0.55-1.02) mg/dL Est GFR ( Amer) 42 L (>=60) Est GFR (Non-Af Amer) 34 L (>=60) BUN/Creatinine Ratio 14.4 Glucose 102 (74-106) mg/dL Calcium 9.0 (8.5-10.1) mg/dL Troponin I High Sens 8.8 11.1 (4.0-51.3) pg/mL ECG Data Attestation: I personally reviewed and interpreted this ECG as follows: (Sinus bradycardia. No STEMI. QTc.) Discharge Plan Discharge Chief Complaint: Recheck/Abnormal Lab/Rx Clinical Impression: Hypertensive urgency, Bradycardia, Chest pain Patient Disposition: Admitted as Observation Prescriptions / Home Meds: No Action cefdinir 300 mg capsule 300 mg PO Q12H Patient Comments: 02/13/24-02/19/24 rosuvastatin 40 mg tablet 40 mg PO DAILY potassium chloride 10 mEq tablet extended release 10 meq PO DAILY alprazolam 0.25 mg tablet 0.25 mg PO BID PRN (Reason: anxiety) aspirin 81 mg tablet,delayed release (DR/EC) 81 mg PO DAILY furosemide 20 mg tablet 20 mg PO DAILY gabapentin 100 mg capsule 100 mg PO Q12H Patient Comments: can take in the afternoon if needed pravastatin 40 mg tablet 40 mg PO .dinner temazepam [Restoril] 15 mg capsule 15 mg PO .hs PRN (Reason: sleep) carvedilol 3.125 mg tablet 3.125 mg PO Q12H Rx Instructions: must administer with a meal/food losartan 50 mg tablet 50 mg PO BID clopidogrel 75 mg tablet 75 mg PO DAILY furosemide [Lasix] 20 mg tablet 20 mg PO DAILY PRN (Reason: weight gain) Rx Instructions: as needed in the evening if weight is greater than 200 lbs ropinirole 0.25 mg tablet 0.25 mg PO .dinner PRN (Reason: restless leg(s)) Print Language: Armenian Referrals: Nathan Bateman DO [Primary Care Provider] - 1 week
[2024-02-18 17:44] LABS: Magnesium 2.3 mg/dL (1.8-2.4)
[2024-02-18] MEDS: HYDRALAZINE HCL 20 MG/ML VIAL 10 MG IVP ×2 (18:36→22:20)
--- NOTE | 2024-02-18 19:25 | PC.NURSE ---
PRN hydralazine was given at this time for high BP
[2024-02-18] MEDS: GABAPENTIN 100 MG CAPSULE PO (19:55)
[2024-02-18] MEDS: LOSARTAN POTASSIUM 50 MG TABLET PO (19:55)
[2024-02-18] MEDS: ALPRAZOLAM 0.25 MG TABLET PO (22:26)
[2024-02-19] VITALS (21 sets, daily range): BP systolic 150–191; BP diastolic 47–82; PULSE 46–88; TEMP 36.4–36.9; O2SAT 68–97
[2024-02-19 05:16] LABS: Basophils Percent Auto 0.8 % (0.2-2.0); Eosinophils Absolute Auto 0.1 10^3/uL (0.0-0.7); Eosinophils Percent Auto 1.9 % (0.9-7.0); Hematocrit 31.2 % (36.0-48.0); Immature Granulocytes Abs Auto 0.03 10^3/uL (0.00-0.03); Immature Granulocytes Pct Auto 0.6 % (0.0-0.5); Lymphocytes Absolute Auto 1.1 10^3/uL (1.2-3.8); Lymphocytes Percent Auto 21.3 % (20.5-60.0); Mean Corpuscular HGB Conc 32.1 g/dL (29.9-35.2); Mean Corpuscular Hemoglobin 29.6 pg (26.7-34.0); Mean Corpuscular Volume 92.3 fL (81.0-99.0); Mean Platelet Volume 10.4 fL (9.5-13.5); Monocytes Absolute Auto 0.6 10^3/uL (0.3-0.8); Monocytes Percent Auto 11.1 % (1.7-12.0); Neutrophils Absolute Auto 3.4 10^3/uL (1.4-6.5); Neutrophils Percent Auto 64.3 % (43.0-75.0); Platelet Count 262 10^3/uL (150-450); Red Blood Count 3.38 10^6/uL (4.20-5.40); Red Cell Distribution Width 13.2 % (11.0-15.0); White Blood Count 5.3 10^3/uL (4.0-11.0)
[2024-02-19 05:46] LABS: Alanine Aminotransferase 15 U/L (14-59); Albumin Globulin Ratio 1.1; Albumin Level 3.2 g/dL (3.4-5.0); Alkaline Phosphatase 49 U/L (46-116); Anion Gap 12.3; Aspartate Amino Transferase 15 U/L (15-37); BUN Creatinine Ratio 16.9; Bilirubin Total 0.5 mg/dL (0.2-1.0); Calcium 9.4 mg/dL (8.5-10.1); Carbon Dioxide 28.7 mmol/L (21.0-32.0); Chloride 108 mmol/L (98-107); Chol HDL Ratio 3.8; Cholesterol 158 mg/dL (<=200); Estimated GFR (African America 53 (>=60); Estimated GFR (Non-African Ame 44 (>=60); Globulin 2.8 g/dL; Glucose 93 mg/dL (74-106); HDL Cholesterol 42 mg/dL (40-60); LDL Cholesterol Calculated 100.4 mg/dL; Sodium 145 mmol/L (136-145); Thyroid Stimulating Hormone 4.696 uIU/mL (0.358-3.740); Triglycerides 78 mg/dL (<=150); VLDL CHOLESTEROL 15.6 mg/dL
[2024-02-19] MEDS: GABAPENTIN 100 MG CAPSULE PO ×2 (09:01→17:01)
[2024-02-19] MEDS: FUROSEMIDE 20 MG TABLET PO (09:01)
[2024-02-19] MEDS: LOSARTAN POTASSIUM 50 MG TABLET PO ×2 (09:02→17:01)
[2024-02-19] MEDS: ASPIRIN 81 MG TABLET.DR PO (09:02)
[2024-02-19] MEDS: CLOPIDOGREL BISULFATE 75 MG TABLET PO (09:02)
--- NOTE | 2024-02-19 09:32 | P.HP_ITS ---
<Statement entered by Madison Harris DO - 02/20/24 08:21> This documentation has been reviewed and approved. I have also seen ane evaluated patient at the time of admission and agree with cards consult and assessments and further plan of care. HPI H&P: HPI History of Present Illness Chief complaint: ABNORMAL LAB VALUES Hypertension Narrative: 02/19/24 0905 This is an 83-year-old female patient with a past medical history significant for poorly controlled hypertension, anxiety, neuropathy, and CAD; who presented to the ED on the advice of her PCP yesterday afternoon. The ED provider documents the patient was complaining of chest pressure, bradycardia, and uncontrolled hypertension on arrival to the ED. The patient is currently denying any chest pain [employer] in the ED or symptoms from her bradycardia and hypertension. She specifically denies headache, dizziness, chest pain, or shortness of breath. She presented to her PCP last week due to waking up feeling short of breath at times. She had a follow-up visit yesterday and was noted to be bradycardic (HR 44), and hypertensive. She was instructed to contact her it technical specialist, and in the absence of Cardiology contact, to present to the ED for further evaluation. Workup in the ED was relatively benign except for hypertension (181/57) and bradycardia (HR 53). She had mild renal dysfunction from her baseline CKD 3A (BUN 21, CR 1.46, GFR 34). Mildly elevated TSH (4.696) was also noted. She was admitted to the hospitalist service yesterday evening, with cardiology on consult. At the time of my exam this morning the patient is resting comfortably in a bedside chair. She continues to deny any chest pain, shortness of breath, dizziness, or any adverse effects. She reports a HR in the 40s for several months. On further review of her symptoms of shortness of breath on awakening, we strongly suspect STACIE that is undiagnosed. We recommend an outpatient sleep study as soon as possible to further assess for STACIE. As the patient has an allergy to amlodipine documented, cannot take valentina blocking agents due to her bradycardia, and is maxxed on her ARB dosing, we defer to the cardiology service for the best hypertensive management regimen. Opioid HPI Opioid Management Most Recent Opioid Data: Last Pain Scale 0 02/19/24 08:28 Last Pain Intensity 0 02/19/24 08:28 Last Pain Assessment 02/20/24 06:55 Last ORT Total Score 0 02/18/24 18:30 Last ORT Risk Category Low Risk 02/18/24 18:30 Review of Systems ROS Status of ROS 10 or more systems reviewed and unremark able except as noted in history and below [facility] Medical History (Updated 02/19/24 @ 13:19 by Delores Gao NP) Peripheral neuropathy ?G62.9 - Polyneuropathy, unspecified (ICD-10) Peripheral edema ?R60.0 - Localized edema (ICD-10) HTN (hypertension) ?I10 - Essential (primary) hypertension (ICD-10) GERD (gastroesophageal reflux disease) ?K21.9 - Gastro-esophageal reflux disease without esophagitis (ICD-10) Pneumonia due to COVID-19 virus ?U07.1 - COVID-19 (ICD-10) ?J12.82 - Pneumonia due to coronavirus disease 2019 (ICD-10) COVID-19 ?U07.1 - COVID-19 (ICD-10) Obesity ?E66.9 - Obesity, unspecified (ICD-10) Coronary artery disease ?I25.10 - Atherosclerotic heart disease of [place] coronary artery without angina pectoris (ICD-10) Surgical History (Updated 02/18/24 @ 18:28 by Bharti Rosado) H/O: hysterectomy ?Z90.710 - Acquired absence of both cervix and uterus (ICD-10) Stented coronary artery ?Z95.5 - Presence of coronary angioplasty implant and graft (ICD-10) Family History Brother Family history of diabetes mellitus Family history of cancer Sister Family history of cancer Social History (Updated 02/18/24 @ 18:30 by Bharti Rosado) Within the past year, how often did you have a drink containing alcohol: never Within the past year, how often did you have six or more drinks on one occasion: never Score interpretation: A score less than 3 is consistent with normal alcohol consumption. Smoking status: Former smoker Non-prescribed substance use: denies use Previous occupational history: [employer] Known occupational exposures/hazards: No Highest level of school completed/degree received: 11th grade Do you want help with school or training: No Are you now , , , , never or living with a partner: In a typical week, how many times do you talk on the telephone with family, friends, or neighbors: 3 or more times per week How often do you get together with friends or relatives: twice per week How often do you attend scientology or yazdanism services: 4 or more times per year Do you belong to any clubs or organizations such as scientology groups unions, fraternal or athletic groups, or school groups: yes Total score: 4 Score interpretation: A score of greater than or equal to 2 indicates the lowest level of social isolation. Little interest or pleasure in doing things: not at all Feeling down, depressed, or hopeless: not at all Feel stressed/tense/nervous/anxious/difficulty sleeping: only a little Due to disability, difficulty making decisions: No Do you think of yourself as: straight/heterosexual Gender Identity: female Meds Home Medications and Allergies Home Medications ?Medication ?Instructions ?Recorded ?Confirmed ?Type alprazolam 0.25 mg tablet 0.25 mg PO BID PRN anxiety 04/11/23 02/18/24 History aspirin 81 mg tablet,delayed 81 mg PO .qod 04/11/23 02/18/24 History release carvedilol 3.125 mg tablet 3.125 mg PO Q12H 04/11/23 02/18/24 History furosemide 20 mg tablet 20 mg PO DAILY 04/11/23 02/18/24 History gabapentin 100 mg capsule 100 mg PO Q12H 04/11/23 02/18/24 History temazepam 15 mg capsule (Restoril) 15 mg PO .hs PRN sleep 04/11/23 02/18/24 History clopidogrel 75 mg tablet 75 mg PO DAILY 07/27/23 02/18/24 History losartan 50 mg tablet 50 mg PO BID 07/27/23 02/18/24 History furosemide 20 mg tablet (Lasix) 20 mg PO DAILY PRN weight gain 07/28/23 02/18/24 History cefdinir 300 mg capsule 300 mg PO Q12H 02/18/24 02/18/24 History potassium chloride 10 mEq 10 meq PO DAILY 02/18/24 02/18/24 History tablet,extended release rosuvastatin 40 mg tablet 40 mg PO DAILY 02/18/24 02/18/24 History levothyroxine 75 mcg capsule 75 mcg PO DAILY #30 caps 02/19/24 Rx Allergies Allergy/AdvReac Type Severity Reaction Status Date / Time azithromycin Allergy Severe Verified 09/28/23 14:15 amlodipine Allergy Verified 07/27/23 02:13 doxycycline Allergy Verified 07/27/23 02:13 duloxetine [From Cymbalta] Allergy Verified 07/27/23 02:13 ondansetron [From Zofran] Allergy Verified 07/27/23 02:13 sulfamethoxazole Allergy Verified 07/27/23 02:13 [From Bactrim] tetanus and diphtheria Allergy Verified 07/27/23 02:13 toxoids trimethoprim [From Bactrim] Allergy Verified 07/27/23 02:13 codeine AdvReac Severe Anxiety Verified 09/25/23 11:07 Exam Constitutional Vital Signs, click to edit/add: Last Vital Signs Temp 98.0 F 02/19/24 09:07 Pulse 58 L 02/19/24 09:07 Resp 18 02/19/24 09:07 BP 165/76 H 02/19/24 09:07 Pulse Ox 94 L 02/19/24 09:07 O2 Del Method Room Air 02/19/24 09:07 Common normals: no apparent distress, oriented x3, alert and well nourished General appearance: cooperative Orientation/consciousness: Yes awake HENMT Common normals: normocephalic, head/scalp atraumatic, hearing grossly normal bilaterally, external nose normal and moist oral mucous membranes Eye Common normals: PERRL, EOMs intact bilaterally, conjunctivae normal and no scl eral icterus Alignment: alignment normal Eyelid: eyelids normal Neck & C-Spine Common normals: full ROM, supple and no JVD Chest Common normals: inspection of chest normal Chest: symmetrical chest wall rise Respiratory Common normals: normal respiratory effort, no retractions, no use of accessory muscles and clear to auscultation bilaterally Effort & inspection: able to speak in complete sentences Cardio Common normals: no JVD, regular rhythm, S1 normal heart sound, S2 normal heart sound, no gallops, no clicks, no murmurs, no rub and peripheral pulses 2+ throughout Rate: bradycardic (52-55, asymptomatic) GI Common normals: Normal to inspection, nondistended, normoactive bowel sounds present, soft to palpation, non-tender, no hepatosplenomegaly, no masses and no bruits Bladder/kidney exam: bladder normal to palpation Back & Pelvis Common normals: thoracic and lumbar spine normal to inspection Extremity Common normals: normal capillary refill and no pedal edema General: normal exam except as noted; no clubbing and no cyanosis Neuro [place] Coma Scale: GCS not evaluated Common normals: CN's II-XII intact bilaterally, moves all extremities, no focal motor deficits and no sensory deficits noted Speech: speech normal Motor exam: strength 5/5 throughout Psych Common normals: mental status grossly normal, thought process normal, affect normal and activity/motor behavior normal Results Labs Labs: Short CBC 02/18/24 02/19/24 Range/Units 14:30 04:33 WBC 6.8 5.3 (4.0-11.0) 10^3/uL Hgb 10.3 L 10.0 L (12.0-16.0) g/dL Hct 31.7 L 31.2 L (36.0-48.0) % Plt Count 255 262 (150-450) 10^3/uL BMP 02/18/24 02/19/24 14:30 04:33 Sodium 144 145 Potassium 4.1 4.0 Chloride 106 108 H Carbon Dioxide 30.4 28.7 BUN 21.0 H 20.0 H Creatinine 1.46 H 1.18 H Glucose 102 93 Calcium 9.0 9.4 Liver Function 02/19/24 Range/Units 04:33 Total Bilirubin 0.5 (0.2-1.0) mg/dL AST 15 (15-37) U/L ALT 15 (14-59) U/L Alkaline Phosphatase 49 (46-116) U/L Albumin 3.2 L (3.4-5.0) g/dL Pulse Oximetry Attestation: I have reviewed the pertinent pulse oximetry results. ECG Attestation: ?I have reviewed the pertinent ECG results. Interpretation: Sinus rhythm Normal ECG Compared to ECG from 09/25/2023 Sinus arrhythmia no longer present Imaging Chest x-ray: Attestation: I have reviewed the pertinent imaging results. Radiologist's impression: IMPRESSION: No acute cardiopulmonary process Assessment and Plan Assessment and Plan (1) Bradycardia: Assessment and Plan: Acute on Chronic * Adm inpatient for specialty cardiac care * HR 40s and low 50s in the ED * Mostly asymptomatic * C/S Cardiology - we appreciate their assistance with this pt's care * Hold home low dose Coreg * See hypothyroidism * Tele monitoring - improved HR to 55 bpm at time of exam. Asymptomatic (2) Hypertensive urgency: Assessment and Plan: Acute on Chronic * Poorly controlled HTN at baseline * BP up to 200/80 on arrival to the medical floor last night * Improved BP this morning despite holding Coreg - 165/76 * Suspect STACIE is contributing to HTN - recommend sleep study RAMIREZ * 2D Echo today * Home losartan is at max recommended dosing * Unable to use valentina blocking agents d/t bradycardia * Amlodipine is listed as an allergy - pt cannot remember what her reaction was * Consult Cardiology - we appreciate their assistance with this pt's care * defer best HTN control regimen w/ concurrent bradycardia to cardiology team (3) Hypothyroidism: Assessment and Plan: Acute * Elevated TSH in ED - 4.696 * Start low dose levothyroxine at 75mcg daily * defer further titration/lab follow up to the PCP (4) Suspected sleep apnea: Assessment and Plan: Acute * Suspected * Recommend outpatient sleep study RAMIREZ (5) GERD (gastroesophageal reflux disease): Assessment and Plan: Chronic * Continue home statin (6) Coronary artery disease: Assessment and Plan: Chronic * Continue home ASA & Plavix (7) Peripheral edema: Assessment and Plan: Chronic * Continue home PRN Lasix * 2D Echo today to assess for WM, valvular abnl, systolic vs diastolic HF (8) Peripheral neuropathy: Assessment and Plan: Chronic * Continue home neuropathy
--- NOTE | 2024-02-19 10:32 | CM.NOTE ---
Rounds made with Dr. Harris. Will await Cardiology Consult for recommendations. Maggie in agreement.
--- NOTE | 2024-02-19 13:31 | SWNOTE1 ---
SW met with pt and pt's daughter in room. Pt lives at home with her . Pt let SW know that her and her had been dealing with long haul covid. Pt voiced she was not feeling too bad and she drove herself here because Dr. Bateman was out of the office and [employer]IE TRAM LOAD[employer] sent her here. Pt is independent at home and does not use any DME and does not have any home health. Family lives close by if pt needs anything. Pt denies any discharge needs at this time. SW to follow as needed. Important Message from Medicare reviewed and discussed with patient. Pt. verbalized understanding and signed the form. Original given to patient and copy placed in patient?s chart.
--- NOTE | 2024-02-19 19:02 | PM.CACN ---
History of Present Illness History of Present Illness Consult date: 02/19/24 Requesting physician: Madison Harris Chief complaint: ABNORMAL LAB VALUES Hypertension Narrative: Patient is a 83 y/o F with PMHx CAD s/p PCI 02/2023, HTN, bradycardia, anxiety. She presented to [facility] with concerns for bradycardia and HTN. She had seen her PCP the morning of her admission and her HR was in the 40s, she was asymptomatic. She was advised by her PCP to either contact her corporation pilot or report to the ER and so she reported to the ER. In the ER, her BP was in the 200s/80. She reports her BP has been newly uncontrolled. She reports having some stressors at home. She was previously on carvedilol but this has been held due to bradycardia. She is also on losartan. Cardiology has been consulted to assist with HTN management. There was notation of possible amlodipine allergy but pt denies any known allergy to this - also patient see's corporation pilot whose records are in [facility] and no notation of this allergy in their records. She remains stable. She denies c/o CP, dyspnea, orthopnea, PND, dizziness/LH, near syncope/syncope. She has some intermittent LE swelling that is controlled with lasix. She does c/o her legs/feet being cold since being admitted along with leg thrashing when trying to sleep. Review of Systems ROS Status of ROS 10 or more systems reviewed and unremarkable except as noted in history and below Cardiovascular Reports: swelling of feet/ankles [facility] Medical History (Updated 02/19/24 @ 13:19 by Delores Gao NP) Peripheral neuropathy ?G62.9 - Polyneuropathy, unspecified (ICD-10) Peripheral edema ?R60.0 - Localized edema (ICD-10) HTN (hypertension) ?I10 - Essential (primary) hypertension (ICD-10) GERD (gastroesophageal reflux disease) ?K21.9 - Gastro-esophageal reflux disease without esophagitis (ICD-10) Pneumonia due to COVID-19 virus ?U07.1 - COVID-19 (ICD-10) ?J12.82 - Pneumonia due to coronavirus disease 2019 (ICD-10) COVID-19 ?U07.1 - COVID-19 (ICD-10) Obesity ?E66.9 - Obesity, unspecified (ICD-10) Coronary artery disease ?I25.10 - Atherosclerotic heart disease of [place] coronary artery without angina pectoris (ICD-10) Surgical History (Updated 02/18/24 @ 18:28 by Bharti Rosado) H/O: hysterectomy ?Z90.710 - Acquired absence of both cervix and uterus (ICD-10) Stented coronary artery ?Z95.5 - Presence of coronary angioplasty implant and graft (ICD-10) Family History Brother Family history of diabetes mellitus Family history of cancer Sister Family history of cancer Social History (Updated 02/18/24 @ 18:30 by Bahrti Rosado) Within the past year, how often did you have a drink containing alcohol: never Within the past year, how often did you have six or more drinks on one occasion: never Score interpretation: A score less than 3 is consistent with normal alcohol consumption. Smoking status: Former smoker Non-prescribed substance use: denies use Previous occupational history: [employer] Known occupational exposures/hazards: No Highest level of school completed/degree received: 11th grade Do you want help with school or training: No Are you now , , , , never or living with a partner: In a typical week, how many times do you talk on the telephone with family, friends, or neighbors: 3 or more times per week How often do you get together with friends or relatives: twice per week How often do you attend shinto or mosque services: 4 or more times per year Do you belong to any clubs or organizations such as shinto groups unions, fraternal or athletic groups, or school groups: yes Total score: 4 Score interpretation: A score of greater than or equal to 2 indicates the lowest level of social isolation. Little interest or pleasure in doing things: not at all Feeling down, depressed, or hopeless: not at all Feel stressed/tense/nervous/anxious/difficulty sleeping: only a little Due to disability, difficulty making decisions: No Do you think of yourself as: straight/heterosexual Gender Identity: female Meds Home Medications and Allergies Home Medications ?Medication ?Instructions ?Recorded ?Confirmed ?Type alprazolam 0.25 mg tablet 0.25 mg PO BID PRN anxiety 04/11/23 02/18/24 History aspirin 81 mg tablet,delayed 81 mg PO .qod 04/11/23 02/18/24 History release carvedilol 3.125 mg tablet 3.125 mg PO Q12H 04/11/23 02/18/24 History furosemide 20 mg tablet 20 mg PO DAILY 04/11/23 02/18/24 History gabapentin 100 mg capsule 100 mg PO Q12H 04/11/23 02/18/24 History temazepam 15 mg capsule (Restoril) 15 mg PO .hs PRN sleep 04/11/23 02/18/24 History clopidogrel 75 mg tablet 75 mg PO DAILY 07/27/23 02/18/24 History losartan 50 mg tablet 50 mg PO BID 07/27/23 02/18/24 History furosemide 20 mg tablet (Lasix) 20 mg PO DAILY PRN weight gain 07/28/23 02/18/24 History cefdinir 300 mg capsule 300 mg PO Q12H 02/18/24 02/18/24 History potassium chloride 10 mEq 10 meq PO DAILY 02/18/24 02/18/24 History tablet,extended release rosuvastatin 40 mg tablet 40 mg PO DAILY 02/18/24 02/18/24 History levothyroxine 75 mcg capsule 75 mcg PO DAILY #30 caps 02/19/24 Rx Allergies Allergy/AdvReac Type Severity Reaction Status Date / Time azithromycin Allergy Severe Verified 09/28/23 14:15 amlodipine Allergy Verified 07/27/23 02:13 doxycycline Allergy Verified 07/27/23 02:13 duloxetine [From Cymbalta] Allergy Verified 07/27/23 02:13 ondansetron [From Zofran] Allergy Verified 07/27/23 02:13 sulfamethoxazole Allergy Verified 07/27/23 02:13 [From Bactrim] tetanus and diphtheria Allergy Verified 07/27/23 02:13 toxoids trimethoprim [From Bactrim] Allergy Verified 07/27/23 02:13 codeine AdvReac Severe Anxiety Verified 09/25/23 11:07 Exam Constitutional Vital Signs, click to edit/add: Last Vital Signs Temp 98.0 F 02/19/24 17:03 Pulse 59 L 02/19/24 17:44 Resp 18 02/19/24 17:03 BP 189/69 H 02/19/24 17:03 Pulse Ox 94 L 02/19/24 17:03 O2 Del Method Room Air 02/19/24 17:03 Common normals: no apparent distress, oriented x3, no limitations and alert HENMT Common normals: normocephalic, head/scalp atraumatic, external ears normal and EACs normal Eye Common normals: EOMs intact bilaterally and conjunctivae normal Neck & C-Spine Common normals: full ROM and supple Respiratory Common normals: normal respiratory effort, no use of accessory muscles and clear to auscultation bilaterally Cardio Common normals: no JVD, regular rhythm, S1 normal heart sound and no murmurs Rate: bradycardic GI Common normals: Normal to inspection, nondistended, normoactive bowel sounds present, soft to palpation and non-tender Extremity Common normals: normal to inspection, full ROM and no pedal edema (BLE compression stockings in place) Results Labs and Meds Lab results: Cardiac Enzymes 02/19/24 Range/Units 04:33 AST 15 (15-37) U/L Lipids 02/19/24 Range/Units 04:33 Triglycerides 78 (<=150) mg/dL Cholesterol 158 (<=200) mg/dL HDL Cholesterol 42 (40-60) mg/dL Cholesterol/HDL Ratio 3.8 CBC 02/19/24 Range/Units 04:33 WBC 5.3 (4.0-11.0) 10^3/uL RBC 3.38 L (4.20-5.40) 10^6/uL Hgb 10.0 L (12.0-16.0) g/dL Hct 31.2 L (36.0-48.0) % Plt Count 262 (150-450) 10^3/uL Neut # (Auto) 3.4 (1.4-6.5) 10^3/uL Lymph # (Auto) 1.1 L (1.2-3.8) 10^3/uL [place] # (Auto) 0.6 (0.3-0.8) 10^3/uL Eos # (Auto) 0.1 (0.0-0.7) 10^3/uL Baso # (Auto) 0.0 (0.0-0.1) 10^3/uL Comprehensive Metabolic Panel 02/19/24 Range/Units 04:33 Sodium 145 (136-145) mmol/L Potassium 4.0 (3.5-5.1) mmol/L Chloride 108 H (98-107) mmol/L Carbon Dioxide 28.7 (21.0-32.0) mmol/L BUN 20.0 H (7.0-18.0) mg/dL Creatinine 1.18 H (0.55-1.02) mg/dL Glucose 93 (74-106) mg/dL Calcium 9.4 (8.5-10.1) mg/dL AST 15 (15-37) U/L ALT 15 (14-59) U/L Alkaline Phosphatase 49 (46-116) U/L Total Protein 6.0 L (6.4-8.2) g/dL Albumin 3.2 L (3.4-5.0) g/dL Intake and Output 02/19/24 02/19/24 02/19/24 07:59 15:59 23:59 Output Total 450 / 650 Balance -450 / -650 Output: Urine 450 / 650 Other: Weight 89.9 kg Imaging and Cardiology Echo: report reviewed Assessment and Plan Assessment and Plan (1) Bradycardia: (2) Hypertensive urgency: (3) Hypothyroidism: (4) Suspected sleep apnea: (5) GERD (gastroesophageal reflux disease): (6) Coronary artery disease: (7) Peripheral edema: (8) Peripheral neuropathy: Plan #HTN, uncontrolled -BP remains elevated at 189/69. Recommend to get BP 150/90 or less prior to discharge and can make further adjustments to medications as an outpatient. -Currently on losartan 50mg BID. -Avoiding AV valentina blocking agents given bradycardia. -There was somewhere noted hx of amlodipine allergy. Patient denies any knowledge of this. I did not see any noted allergy of this either in her primary cardiology notes. Will try starting nifedipine 30mg daily. Uptitrate as needed. -Given her diastolic dysfunction noted on ECHO, will also switch losartan to Entresto 24/26mg BID. She will need follow-up BMP in 2 weeks. #Bradycardia -Asymptomatic -HR improved with stopping carvedilol -Avoid AV valentina blocking agents -Instructed patient to continue to monitor HR at home. Notify PCP/corporation pilot if she has low HR's and is symptomatic. #Diastolic heart failure -She appears compensated on exam. -ECHO today shows preserved LVEF, grade 2 diastolic dysfunction RVSP at 41. -Starting Entresto as noted above. -Recommend lasix 20mg daily PRN at discharge. #CAD -Recent PCI 02/2023. -She denies CP or dyspnea. -Continue ASA, plavix, rosuvastatin. She should follow-up with her primary corporation pilot 2 weeks after discharge. Please let us know if any further questions or concerns. Thank you! Radha Brown APRN-FILLER MACHINE OPERATOR [facility]
[2024-02-19] MEDS: NIFEdipine 30 MG TAB.ER.24 PO (19:40)
[2024-02-19] MEDS: TEMAZEPAM 15 MG CAPSULE PO (21:56)
[2024-02-20] VITALS (13 sets, daily range): BP systolic 127–171; BP diastolic 52–74; PULSE 46–74; TEMP 36.3–36.6; O2SAT 92–97
[2024-02-20] MEDS: LEVOTHYROXINE SODIUM 75 MCG TABLET PO (05:32)
[2024-02-20 05:37] LABS: Basophils Percent Auto 0.8 % (0.2-2.0); Eosinophils Absolute Auto 0.1 10^3/uL (0.0-0.7); Eosinophils Percent Auto 2.8 % (0.9-7.0); Hematocrit 29.2 % (36.0-48.0); Hemoglobin 9.5 g/dL (12.0-16.0); Immature Granulocytes Abs Auto 0.01 10^3/uL (0.00-0.03); Immature Granulocytes Pct Auto 0.2 % (0.0-0.5); Lymphocytes Percent Auto 21.8 % (20.5-60.0); Mean Corpuscular HGB Conc 32.5 g/dL (29.9-35.2); Mean Corpuscular Hemoglobin 29.2 pg (26.7-34.0); Mean Corpuscular Volume 89.8 fL (81.0-99.0); Mean Platelet Volume 10.5 fL (9.5-13.5); Monocytes Absolute Auto 0.7 10^3/uL (0.3-0.8); Monocytes Percent Auto 14.2 % (1.7-12.0); Neutrophils Absolute Auto 2.8 10^3/uL (1.4-6.5); Neutrophils Percent Auto 60.2 % (43.0-75.0); Platelet Count 250 10^3/uL (150-450); Red Blood Count 3.25 10^6/uL (4.20-5.40); Red Cell Distribution Width 13.1 % (11.0-15.0); White Blood Count 4.7 10^3/uL (4.0-11.0)
[2024-02-20 05:49] LABS: Alanine Aminotransferase 13 U/L (14-59); Albumin Globulin Ratio 1.1; Albumin Level 2.9 g/dL (3.4-5.0); Alkaline Phosphatase 44 U/L (46-116); Anion Gap 9.9; Aspartate Amino Transferase 14 U/L (15-37); BUN Creatinine Ratio 16.7; Bilirubin Total 0.6 mg/dL (0.2-1.0); Calcium 8.9 mg/dL (8.5-10.1); Carbon Dioxide 27.9 mmol/L (21.0-32.0); Chloride 107 mmol/L (98-107); Estimated GFR (African America 59 (>=60); Estimated GFR (Non-African Ame 49 (>=60); Globulin 2.7 g/dL; Glucose 83 mg/dL (74-106); Potassium 3.8 mmol/L (3.5-5.1); Sodium 141 mmol/L (136-145); Total Protein 5.6 g/dL (6.4-8.2)
[2024-02-20] MEDS: CLOPIDOGREL BISULFATE 75 MG TABLET PO (08:10)
[2024-02-20] MEDS: GABAPENTIN 100 MG CAPSULE PO (08:11)
[2024-02-20] MEDS: SACUBITRIL/VALSARTAN 24 MG-26 MG TABLET 1 TAB PO (08:11)
[2024-02-20] MEDS: FUROSEMIDE 20 MG TABLET PO (08:11)
--- NOTE | 2024-02-20 11:49 | CM.NOTE ---
Rounds made with Dr. Harris, pt will discharge to home today. Dr. Harris discussed change in medications and reason for 2 new medications (Procardia, Entresto). Pt verbalizes understanding.
--- NOTE | 2024-02-20 13:48 | P.DS_ITS ---
<Statement entered by Madison Harris DO - 02/21/24 08:22> This documentation has been reviewed and approved. I have also seen and evaluated patient at the time of discharge and agree to discharge, medications and follow up plans. DS: Providers Provider Date of admission: 02/18/24 18:02 Primary care physician: Nathan Bateman DO Consults: 02/18/24 17:24 Consult to Cardiology Routine Reason for consultation: bradycardia Has provider been notified: No Occupational Therapy Eval and Treat Routine Reason for consultation: weakness Has provider been notified: No Physical Therapy Eval and Treat Routine Reason for consultation: weakness Has provider been notified: No Discharging clinician: Delores Gao DS: Diagnosis Discharge Diagnosis (1) Bradycardia: (2) Hypertensive urgency: (3) Hypothyroidism: (4) Suspected sleep apnea: (5) GERD (gastroesophageal reflux disease): (6) Coronary artery disease: (7) Chronic heart failure with preserved ejection fraction (HFpEF): (8) Peripheral neuropathy: DS: Summary Hospital Course Hospital Course: The patient was admitted with asymptomatic severe bradycardia and hypertensive urgency. Her home Coreg was held due to her bradycardia and her heart rate was monitored closely with telemetry. A TSH was elevated on admission, indicating hypothyroidism. She was initiated on low dose levothyroxine as hypothyroidism could be contributing to her bradycardia. Cardiology was consulted for assistance with her uncontrolled hypertension in setting of bradycardia. They recommended discontinuing losartan and Coreg. They initiated treatment with nifedipine and Entresto. Although the patient has amlodipine listed as an allergy, she cannot remember any previous reaction and no other source of documentation for this patient notes an amlodipine allergy. Thus nifedipine was considered a safe option by the cardiology service. The patient tolerated her initial doses of nifedipine well. Her blood pressure improved, although was not yet to goal and her bradycardia was resolving at the time of discharge. She is being discharged home in stable condition. She should follow-up with her PCP within 1 week and with her usual universal banker within 2 weeks. A BMP is recommended in 1 to 2 weeks to monitor her renal function with the addition of Entresto to her medication profile. A repeat TSH should be obtained in 6 weeks to monitor her response to levothyroxine. Time Spent with Patient Time attestation: Total time spent providing and/or coordinating discharge services: Time spent: greater than 30 minutes Specific discharge activities: Physical exam, discussion of discharge plan, questions answered. Exam Constitutional Vital Signs, click to edit/add: Last Vital Signs Temp 97.3 F L 02/20/24 13:07 Pulse 57 L 02/20/24 13:07 Resp 20 02/20/24 13:07 BP 171/74 H 02/20/24 13:07 Pulse Ox 97 02/20/24 13:07 O2 Del Method Room Air 02/20/24 13:07 Common normals: no apparent distress, oriented x3 and alert General appearance: cooperative Orientation/consciousness: Yes awake HENMT Common normals: normocephalic and head/scalp atraumatic Eye Common normals: PERRL, EOMs intact bilaterally, conjunctivae normal and no scleral icterus Neck & C-Spine Common normals: no JVD Respiratory Common normals: normal respiratory effort, no use of accessory muscles and clear to auscultation bilaterally Effort & inspection: able to speak in complete sentences and symmetric chest movement Cardio Common normals: no JVD, regular rhythm, S1 normal heart sound, S2 normal heart sound, no murmurs and peripheral pulses 2+ throughout Rate: bradycardic (Slightly bradycardic, high 50s) GI Common normals: Normal to inspection, nondistended, normoactive bowel sounds present, soft to palpation and non-tender Bladder/kidney exam: bladder normal to palpation Extremity Common normals: normal to inspection, full ROM and normal capillary refill General: edema (Trace bilat insteps); no clubbing and no cyanosis Neuro Common normals: moves all extremities, no focal motor deficits and no sensory deficits noted Speech: speech normal Psych Common normals: mental status grossly normal and activity/motor behavior normal DS: Data Data Completed and Pending Labs on day of discharge: Labs from last 24 hours 02/20/24 04:24 WBC 4.7 RBC 3.25 L Hgb 9.5 L Hct 29.2 L MCV 89.8 MCH 29.2 MCHC 32.5 RDW 13.1 Plt Count 250 MPV 10.5 Neut % (Auto) 60.2 Lymph % (Auto) 21.8 [place] % (Auto) 14.2 H Eos % (Auto) 2.8 Baso % (Auto) 0.8 Neut # (Auto) 2.8 Lymph # (Auto) 1.0 L [place] # (Auto) 0.7 Eos # (Auto) 0.1 Baso # (Auto) 0.0 Abs Immat Gran (auto) 0.01 Imm/Tot Granulo (auto) 0.2 Sodium 141 Potassium 3.8 Chloride 107 Carbon Dioxide 27.9 Anion Gap 9.9 BUN 18.0 Creatinine 1.08 H Est GFR ( Amer) 59 L Est GFR (Non-Af Amer) 49 L BUN/Creatinine Ratio 16.7 Glucose 83 Calcium 8.9 Total Bilirubin 0.6 AST 14 L ALT 13 L Alkaline Phosphatase 44 L Total Protein 5.6 L Albumin 2.9 L Globulin 2.7 Albumin/Globulin Ratio 1.1 Imaging Chest x-ray: Attestation: I have reviewed the pertinent imaging results. Radiologist's impression: IMPRESSION: No acute cardiopulmonary process 2D Echo: Attestation: I have reviewed the pertinent imaging results. Radiologist's impression: CONCLUSION: 1. The left ventricle is normal in size and exhibits normal systolic function. LVEF is 60%. 2. Normal right ventricular size and systolic function. 3. Grade 2 diastolic dysfunction. 4. No significant valvular dysfunction. 5. Mildly elevated right-sided pressures. Discharge Plan Discharge Disposition: Home, Self-Care Discharge Medications: New levothyroxine 75 mcg capsule 75 mcg PO DAILY Qty: 30 0RF nifedipine 30 mg Tablet Extended Release 24hr 30 mg PO Q24H 30 Days Qty: 30 0RF Entresto 24-26 mg Tablet 1 tab PO BID 30 Days Qty: 60 0RF Continued cefdinir 300 mg capsule 300 mg PO Q12H Patient Comments: 02/13/24-02/19/24 rosuvastatin 40 mg tablet 40 mg PO DAILY potassium chloride 10 mEq tablet extended release 10 meq PO DAILY alprazolam 0.25 mg tablet 0.25 mg PO BID PRN (Reason: anxiety) aspirin 81 mg tablet,delayed release (DR/EC) 81 mg PO .qod Rx Instructions: due 02/18 furosemide 20 mg tablet 20 mg PO DAILY gabapentin 100 mg capsule 100 mg PO Q12H Patient Comments: can take in the afternoon if needed temazepam [Restoril] 15 mg capsule 15 mg PO .hs PRN (Reason: sleep) clopidogrel 75 mg tablet 75 mg PO DAILY furosemide [Lasix] 20 mg tablet 20 mg PO DAILY PRN (Reason: weight gain) Rx Instructions: as needed in the evening if weight is greater than 200 lbs Discontinued carvedilol 3.125 mg tablet 3.125 mg PO Q12H Hold Instructions: Until follow up with cardiology after discharge Rx Instructions: must administer with a meal/food losartan 50 mg tablet 50 mg PO BID Activity: increase activity as tolerated Diet: advance to your usual diet Print Language: [place] Patient Instructions: Nifedipine (By mouth), Levothyroxine (By mouth), Sacubitril/Valsartan (By mouth), Chest Pain (DC) Activity Restrictions/Additional Instructions: - Recommend sleep study RAMIREZ - Repeat TSH in 6 weeks recommended - monitor new levothyroxine dosing - Repeat BMP in 1-2 weeks recommended - monitor renal fx on Entresto Forms: Portal Instructions Referrals: Nathan Bateman DO [Primary Care Provider] - 1 week Follow Up Appointments: 02/26 @ 9:45am with Dr. Bateman [phone] 03/05 @ 11:30am with Nerissa Rosado NP (Dr. Perry's office) [phone] Discharge Date/Time: 02/20/24 14:48
--- NOTE | 2024-02-21 15:06 | CM.DCFOLLOWU ---
Person spoke with: Maggie How are you feeling? Better How is your pain? No pain Did you understand your discharge instructions? Yes Do you have any questions about your discharge instructions? No Were you given any prescriptions at discharge? Yes Were you able to get your prescriptions filled? Yes Do you understand how to take your medications as ordered? Questions all answered on new medications and how to take/pt also had called Dr. Bateman's office about new medications Do you have any questions about your follow up appointment and do you plan to keep your follow up appointment? No and plan on going to f/u appt Is there anything else that you would like to discuss? No Questions/Comments/Concerns/Other:
== END 2024-02-20 14:48 | disposition home or self-care (01) | DRG 305 ==
LOC: ER 17:43 → MS 18:06
PROVIDERS: Admitting Provider Family Medicine; Emergency Provider Student in an Organized Health Care Education/Training Program; PCP Internal Medicine; Visit Provider Family Medicine
DX: I16.0 Hypertensive urgency (principal); I13.0 Hypertensive heart and chronic kidney disease with heart failure and stage 1 through stage 4 chronic kidney disease, or unspecified chronic kidney disease; I50.32 Chronic diastolic (congestive) heart failure; R00.1 Bradycardia, unspecified; E03.9 Hypothyroidism, unspecified; I25.10 Atherosclerotic heart disease of native coronary artery without angina pectoris; G47.30 Sleep apnea, unspecified; N18.31 Chronic kidney disease, stage 3a; K21.9 Gastro-esophageal reflux disease without esophagitis; E66.9 Obesity, unspecified; G62.9 Polyneuropathy, unspecified; Z68.33 Body mass index [BMI] 33.0-33.9, adult; Z79.82 Long term (current) use of aspirin; Z79.02 Long term (current) use of antithrombotics/antiplatelets; Z79.899 Other long term (current) drug therapy; Z88.1 Allergy status to other antibiotic agents; Z88.5 Allergy status to narcotic agent; Z88.2 Allergy status to sulfonamides; Z88.7 Allergy status to serum and vaccine; Z88.8 Allergy status to other drugs, medicaments and biological substances
CPT/HCPCS: 36415; 71045; 80048; 80053; 80061; 83735; 83880; 84443; 84484; 85025; 93005; 93306; 94761; 96374; 96376; 97161; 99285

== ENCOUNTER 2024-04-30 08:59 | Outpatient (OUT) | payer MEDICARE, SELFPAY ==
[2024-04-30 10:12] LABS: Anion Gap 11.6; BUN Creatinine Ratio 19.1; Calcium 8.5 mg/dL (8.5-10.1); Carbon Dioxide 28.7 mmol/L (21.0-32.0); Chloride 106 mmol/L (98-107); Estimated GFR (African America 45 (>=60); Estimated GFR (Non-African Ame 37 (>=60); Glucose 98 mg/dL (74-106); Potassium 4.3 mmol/L (3.5-5.1); Sodium 142 mmol/L (136-145)
== END 2024-04-30 09:00 | disposition home or self-care (01) ==
LOC: LAB 09:01
PROVIDERS: PCP Internal Medicine; Visit Provider Nurse Practitioner
DX: I25.10 Atherosclerotic heart disease of native coronary artery without angina pectoris (principal)
CPT/HCPCS: 36415; 80048

== ENCOUNTER 2024-05-20 09:30 | Outpatient (OUT) | payer MEDICARE, SELFPAY ==
[2024-05-20 10:00] LABS: Anion Gap 10.5; BUN Creatinine Ratio 18.5; Calcium 8.8 mg/dL (8.5-10.1); Carbon Dioxide 30.8 mmol/L (21.0-32.0); Chloride 106 mmol/L (98-107); Estimated GFR (African America 48 (>=60); Estimated GFR (Non-African Ame 39 (>=60); Glucose 89 mg/dL (74-106); Potassium 4.3 mmol/L (3.5-5.1); Sodium 143 mmol/L (136-145)
== END 2024-05-20 09:31 | disposition home or self-care (01) ==
LOC: LAB 09:32
PROVIDERS: PCP Internal Medicine; Visit Provider Internal Medicine
DX: I10 Essential (primary) hypertension (principal)
CPT/HCPCS: 36415; 80048

== ENCOUNTER 2024-06-26 11:26 | Outpatient (OUT) | payer MEDICARE, SELFPAY ==
--- NOTE | 2024-06-26 11:38 | XR_ITS ---
The [address] [address] Patient Name: LASHAUN JOAQUIN MRN: [id number] date: 1940 Sex: F Assigned Patient Location: [facility] Current Patient Location: Accession/Order Number: [id number] Exam Date: 06/26/2024 11:45 Report Date: 06/27/2024 16:47 At the request of: CHELSEA MAR Procedure: XR hip RT 2V w/ pelvis EXAM: XR hip RT 2V w/ pelvis HISTORY: Pain Of Right Hip M25.551 COMPARISON: 12/19/2021. TECHNIQUE: Supine AP pelvis, AP lateral right hip. FINDINGS: Normal mineralization without fracture or suspicious bone lesion. Symmetric hip and SI joints in the pelvis x-ray. Trochanteric spurring. Right hip joint space preserved with minor spurring. No periarticular calcification. Pelvic soft tissues unremarkable bowel wall distention. Vascular calcifications. XR/XR hip RT 2V w/ pelvis IMPRESSION: Mild degenerative changes hips without increased joint space narrowing. Stable findings. No new or acute appearing abnormality. Electronically authenticated by: RONEY JOSEPH Date: 06/27/2024 16:47
== END 2024-06-26 11:27 | disposition home or self-care (01) ==
LOC: RAD 11:28
PROVIDERS: PCP Internal Medicine; Visit Provider Internal Medicine
DX: M25.551 Pain in right hip (principal)
CPT/HCPCS: 73502

== ENCOUNTER 2024-09-12 09:19 | Outpatient (OUT) | payer MEDICARE, SELFPAY ==
[2024-09-12 11:52] LABS: Anion Gap 13.5; BUN Creatinine Ratio 14.4; Calcium 8.6 mg/dL (8.5-10.1); Chloride 108 mmol/L (98-107); Estimated GFR (African America 44 (>=60 mL/min/1.73m^2); Estimated GFR (Non-African Ame 36 (>=60 mL/min/1.73m^2); Glucose 85 mg/dL (74-106); Potassium 4.5 mmol/L (3.5-5.1); Sodium 144 mmol/L (136-145); Thyroid Stimulating Hormone 3.767 uIU/mL (0.358-3.740)
== END 2024-09-12 09:20 | disposition home or self-care (01) ==
LOC: LAB 09:21
PROVIDERS: PCP Internal Medicine; Visit Provider Internal Medicine
DX: E03.8 Other specified hypothyroidism (principal); I10 Essential (primary) hypertension; I50.32 Chronic diastolic (congestive) heart failure
CPT/HCPCS: 36415; 80048; 84439; 84443

== ENCOUNTER 2024-09-23 07:36 | Outpatient (OUT) | payer MEDICARE, SELFPAY ==
--- NOTE | 2024-09-23 07:43 | US_ITS ---
The [address] [address] Patient Name: LASHAUN JOAQUIN MRN: [id number] date: 1940 Sex: F Assigned Patient Location: [place] Current Patient Location: Accession/Order Number: [id number] Exam Date: 09/23/2024 07:50 Report Date: 09/24/2024 06:49 At the request of: CHELSEA MAR Procedure: US thyroid EXAMINATION: US thyroid HISTORY: Family history of malignant neoplasm of thyroid Z80.8 COMPARISON: No relevant comparison available. FINDINGS: RIGHT LOBE: Slightly heterogeneous echotexture. Contains a 16 mm TR 4 nodule within mid body. Lobe size: 4.0 x 1.1 x 1.3 cm LEFT LOBE: Slightly heterogeneous echotexture. Contains several small nodules including a a few 5-7 mm TR 4 nodule within the superior pole, mid body, and inferior pole. 5 mm TR 3 nodule within inferior pole. Lobe size: 4.0 x 1.0 x 1.47 m ISTHMUS: Normal size and echotexture. Thickness: 2 mm US/US thyroid IMPRESSION: 1. Slightly heterogeneous thyroid gland containing multiple nodules; multinodular goiter? 2. Right lobe 16 mm TR 4 nodule. Ultrasound-guided fine-needle aspiration should be considered. TR4 (moderately suspicious): If > 1.0 cm, follow-up ultrasound in 1, 2, 3, and 5 years. If > 1.5 cm, fine needle aspiration (FNA). TR3 (mildly suspicious): > 1.5 cm, follow-up ultrasound in 1, 3, and 5 years. > 2.5 cm, fine needle aspiration. Electronically authenticated by: ROMIE VILLAR Date: 09/24/2024 06:49
--- OUTSIDE RECORDS SUMMARY | 2024-09-23 07:55 | XMS_ITS | CCD ---
Author Organization [facility] CliniSyin Care Team Providers Care 911 Emergency Dispatcher Name Role Phone Nathan Hathaway DO Primary Care Provider Nathan Hathaway Unavailable Unavailable Unavailable DR NATHAN HATHAWAY Primary Care Unavailable LIZZETTE, DR BRISSA Hare Consulting Unavailabl e TYLER, DR ALLI Kat Admitting Unavailable NADEREBeth, DR ALLI Kat Attending Unavailable NADERER, DR [...] TRAN Primary Care Unavailable JORGE, DR WILLIAM Jackosn Consulting Unavailable BALL, DR TRAN Attending Unavailable BALL, DR TRAN Consulting Unavailable BALL, DR TRAN Admitting Unavailable BALL, DR TRAN Primary Care Unavailable DO Jonna Perry Attending Provider DO Nathan Hathaway Primary Care Provider Nathan Hathaway Unavailable [place], Dr. Edinson Hinojosa Attending Darleneva jen Hathaway, Dr. Nathan Maxwell Primary Care Ericka Perry, Dr. Edinson Hinojosa Attending Aura Perry, Dr. Edinson Hinojosa Referring Aura Hathaway, Dr. Nathan Maxwell Primary Care DO Gutierrez Caldernóic Emergency Provider [phone] DO Lj Ryan Admit Provider DO Lj Ryan Attending Provider [phone] Isabela REILLY Nathan Chinyere Primary Care Provider BALL, NATHAN E Primary Care Unavailable BALL, [...] Primary Care Unavailable LUIS MCKENZIE Attending Unavailable Ball DO Nathan E Primary Care Provider Isabela Nathan Primary Care Unavailable Jonna Perry Attending Unavailable [place], Jonna Hinojosa Admitting Unavailable Isabela, Nathan Primary Care Unavailable Lj Ryan Attending Unavailable Lj Ryan Admitting Unavailable Isabela, Nathan Primary Care Unavailable Jonna Perry Attending Unavailable [place], Jonna Hinojosa Admitting Unavailable Holden Rosado Attending Unavailable Holden Rosado Admitting Unavailable Ball, Nathan Primary Care Unavailable DO Nathan Hathaway Primary Care Provider [phone] THONY Rosado Attending Provider HOLDEN ROSADO Referring Unavailable BALL, NATHAN E Primary Care Unavailable HOLDEN ROSADO Referring Unavailable ISABELA, NATHAN E Primary Care Unavailable HOLDEN ROSADO Attending Unavailable EDINSON PERRY Referring Unavailable ISABELA, NATHAN E Primary Care Unavailable HOLDEN ROSADO Attending Unavailable ISABELA, NATHAN E Primary Care Unavailable EDINSON PERRY Attending Unavailable ISABELA, NATHAN E Primary Care Unavailable FERCHO TSE Attending Unavailable Isabela REILLY Nathan E Primary Care Provider Allergies Allergy Classification Reported Allergen(s) Allergy Type Date of Onset Reaction(s) Facility (20 sources) amLODIPine; Translations: [AMLODIPINE] Drug Allergy 07-27-20 21 Unknown [facility] (8 sources) Codeine / guaiFENesin; Translations: [CODEINE-GUAIFENESI N] Drug Allergy 07-27-20 21 Unknown [facility] (8 sources) Doxycycline; Translations: [DOXYCYCLINE HYCLATE] Drug Allergy 07-27-20 Unknown [facility] (20 sources) DULoxetine; Translations: [DULOXETINE] Drug Allergy 07-27-20 Unknown [facility] (14 sources) levoFLOXacin; Translations: [LEVOFLOXACIN] Drug Allergy 07-27-20 Unknown [facility] (14 sources) Ondansetron; Translations: [ONDANSETRON] Drug Allergy 07-27-20 Unknown [facility] Comment on above: Onset Date: 10/29/19 20 (16 sources) Penicillins; Translations: [PENICILLINS] Propensity to adverse reactions to drug 07-27-20 Unknown [facility] (20 sources) Sulfamethoxazole / Trimethoprim; Translations: [Bactrim] Drug Allergy 07-27-20 Unknown, Hives [facility] (8 sources) Tetracycline (class of antibiotic); Translations: [TETRACYCLINES] Propensity to adverse reactions to drug 07-27-20 Unknown [facility] (8 sources) Iodine And Iodide Containing Products; Translations: [IODINE AND IODIDE CONTAINING PRODUCTS] Drug Allergy 01-20-20 Unknown [facility] (14 sources) Tetanus And Diphtheria Toxoids; Translations: [TETANUS AND DIPHTHERIA TOXOIDS] Propensity to adverse reactions to drug 07-27-20 Unknown [facility] (20 sources) Amoxicillin Drug Allergy 02-01-20 24 Unknown, Unknown Reaction [facility] (20 sources) Codeine / guaiFENesin Drug Allergy Unknown [facility] Other (20 sources) Doxycycline Drug Allergy 12-09-19 19 Unknown, Unknown Reaction [facility] (20 sources) levoFLOXacin Drug Allergy Unknown [facility] Other (20 sources) Ondansetron; Translations: [Zofran] Drug Allergy 11-05-19 20 Unknown [facility] (20 sources) Tetanus-Diphtheria Toxoids Td Drug allergy Unknown [facility] Other (20 sources) Allopurinol Drug Allergy Unknown [facility] (1 source) amLODIPine Drug Allergy 11-05-19 [facility] (1 source) Doxycycline Drug Allergy [facility] (1 source) DULoxetine Drug Allergy 11-05-19 [facility] (1 source) Iodine (And Iodine Containting Drugs) Drug allergy (disorder) 01-20-20 21 [facility] (1 source) Sulfamethoxazole / Trimethoprim Drug Allergy 11-05-19 [facility] (5 sources) Sulfonamides (Antibiotic); Translations: [Sulfa (Sulfonamide Antibiotics)] Allergy to substance 03-08-20 Rash [facility] (8 sources) Sulfamethoxazole; Translations: [sulfamethoxazole] Drug Allergy 03-09-20 Unknown Reaction [facility] (4 sources) Trimethoprim; Translations: [trimethoprim] Drug Allergy 03-09-20 Unknown Reaction [facility] (20 sources) Pseudoephedrine Drug Allergy 10-29-19 Unknown [facility] Other (20 sources) Tetracycline Drug Allergy Unknown [facility] [employer] Other (20 sources) Cheratussin AC *COUGH/COLD/ALLERGY * Propensity to adverse reactions 10-29-19 Unknown [facility] Other (20 sources) Zofran *ANTIEMETICS* Propensity to adverse reactions 10-29-19 Unknown [facility] Other (5 sources) amLODIPine Drug Allergy Unknown [facility] Other (18 sources) Azithromycin; Translations: [AZITHROMYCIN] Drug Allergy 10-17-20 rash, Swelling [facility] (6 sources) Codeine Drug Allergy 02-01-20 24 Unknown Reaction [facility] (6 sources) guaiFENesin Drug Allergy 02-01-20 24 Unknown Reaction [facility] (6 sources) 12 Hour Decongestant Allergy to substance 02-01-20 Unknown Reaction [facility] Comment on above: Onset Date: 10/29/19 20 (6 sources) Cheratussin AC *COUGH/COLD/ALL Allergy to substance 02-01-20 Unknown Reaction [facility] Comment on above: Free Text Allergy: C heratussin AC *COUGH/COLD/ALLERGY*; Onset Date: 10/29/2019 (1 source) Doxycycline Drug Allergy 03-09-20 [facility] Repository (1 source) Penicillins Drug allergy (disorder) 03-08-20 [facility] Repository Medications Current Medications Medication Drug Class(es) Dates Sig (Normalized) Sig (Original) AeroChamber Mini Chamber - (5 sources) Start: 04-20-2023 AeroChamber Mini Chamber - Use with MDI every 6 hours as needed inhaled every 6 hours as needed for 30 days Mar, Active [id number] 200 actuat albuterol 0.09 mg/actuat metered dose inhaler (20 sources) beta2-Adrenergic Agonist Start: 01-31-2024 take 1 puff(s) by inhalation every six hours as needed Albuterol Sulfate 90 mcg/actuation HFA aerosol inhaler Active 2 PUFF INHALATION Every 6 hours as needed January 30, 2024 11:00pm Start: 04-20-2023 take 2 puff(s) by in [...] tablet (20 sources) Benzodiazepine Start: 01-31-2024 take 1 tablet by mouth every eight hours as needed for anxiety Alprazolam 0.25 mg tablet Active 0.25 MG PO .q8hrs as needed for Anxiety January 31, 2024 9:33am Start: 03-22-2023 take 1 tablet by tina th every eight hours as needed for anxiety ALPRAZolam 0.25 MG TAKE 1 TABLET BY MOUTH EVERY 8 HOURS NEEDED FOR ANXIETY for 90 February, Active Start: 03-08-2023 End: 01-31-2024 take 1 tablet by mouth three times daily as needed for anxiety Alprazolam 0.25 mg tablet Discontinued 0.25 MG PO Three times daily as needed for Anxiety March 07, 2023 11:00pm January 31, 2024 9:39am ALPRAZolam (Briana vam) 0.25 mg disintegrating tablet Take 1 tablet (0.25 mg) by mouth as needed at bedtime for anxiety. Active take 1 tablet by tina th [...] Once a day Mar, Active Start: 03-07-2023 End: 02-27-2024 take 1 tablet by mouth once daily in the morning Aspirin 81 mg Tablet,Delayed Release (Dr/Ec) Discontinued 81 MG PO Every morning March 07, 2023 11:00pm February 27, 2024 9:01am aspirin 81 mg ca p Take by mouth. Active Comment on above: Take by mouth. [...] a day Sample 12 Apr, 2023 Active Calcium Carbonate (7 sources) calcium carbonate (CALCIUM 600 ORAL) Take by mouth. Active calcium carbonat e (CALCIUM 600 ORAL) Take by mouth. 0 Active Comment on above: Take by mouth. codeine phosphate 2 mg/ml / guaiFENesin 20 [...] designated per enteric contrast guidelines Fluticasone Propion-Salmeterol (20 sources) Corticosteroid, beta2-Adrenergic Agonist Start: 3 take 1 puff(s) by inhalation twice daily Fluticasone Propion-Salmeterol (Advair Hfa) 115-21 mcg/actuation HFA aerosol inhaler Active 2 PUFF INHALATION Twice daily May 16, 2023 11:00pm Start: 05-17-2023 take 1 puff(s) by in halation twice daily Fluticasone Propion-Salmeterol (Advair Hfa) 115-21 [...] a day for 30 days Apr, Active furosemide 20 mg oral tablet (20 sources) Loop Diuretic Start: 05-18-2023 take 1 tablet by mouth three times weekly Furosemide 20 mg tablet Active 20 MG PO every other day May 18, 2023 10:38am on even days 3 times a week. Goal weight is 195lbs, if you notice your weight trending up please take an extra dose as instructed by your PCP Start: 03-21-2023 Furosemide 20 MG Oral Tablet one tablet M, W, F Quantity: 36 Refills: 3 Ordered: 21-Mar-2023 Edinson Perry DO Start : 21-Mar-2023 Active new dose Start: 03-08-2023 End: 05-18-2023 Furosemide 20 mg tablet Disc ontinued 20 MG PO every other day March 07, 2023 11:00pm May 18, 2023 10:39am on even days 3 times a week Start: 03-08-2023 take 20 mg by mouth once daily in the morning Furosemide Active 20 MG PO Every morning March 08, 2023 12:00am take 1 tablet by tina twice daily furosemide (Lasix) 20 mg tablet Take 1 tablet (20 mg) by mouth 2 times a day. Active Furosemide 20 MG TAKE 1 TABLET BY MOUTH 1 TO 2 TIMES DAILY NEEDED for 90 Active gabapentin 100 mg oral capsule (20 sources) Anti-epileptic Agent Start: 08-15-2024 take 1 capsule by mouth twice daily Gabapentin 100 mg capsule Active 0 .ROUTE .COMPLEX 180 August 15, 2024 8:28am TAKE 1 CAPSULE BY MOUTH TWICE DAILY Start: 03-08-2023 End: 08-15-2024 take 1 capsule by mouth three times daily Gabapentin 100 mg capsule Discontinued 100 MG PO Twice daily March 07, 2023 11:00pm August 15, 2024 8:28am may take tid if needed take 100 mg by mouth twice daily GABAPENTIN ORAL Take 100 mg by mouth twice daily. Active take 1 capsule by mo [facility] every twenty-four hours Gabapentin 100 MG 1 capsule Orally Once a day Active Comment on above: Take 100 mg by mouth twice daily. iv contrast (will be provided with radiology test) (1 source) Start: 05-29-20 End: 05-30-20 iv contrast (will be provided with radiology [...] 05/30/2022 Active Comment on above: CT Chest ABD/PEL-Inj ect, intravenously, once for 1 dose.No IV access, [...] in the CT contrast administration guidelines link. levothyroxine sodium 0.075 mg oral tablet (4 sources) l-Thyroxine Start: 02-26-20 24 take 1 tablet by mouth once daily Levothyroxine 75 mcg tablet Active 75 MCG PO Daily February 25, 2024 11:00pm MULTI-VITAMIN ORAL (7 sources) MULTI-VITAMIN OR AL Take by mouth. Active MULTI-VITAMIN OR AL Take by mouth. 0 Active Comment on above: Take by mouth. nitrofurantoin, macrocrystals 25 mg / nitrofurantoin, monohydrate 75 mg oral capsule (11 sources) Nitrofuran Antibacterial Start: 07-18-20 23 take 1 capsule by mouth every twelve hours Nitrofurantoin Monohyd Macro 100 MG 1 capsule with food Orally every 12 hrs for 5 days Jun, Active pantoprazole 40 mg delayed release oral tablet (20 sources) Proton Pump Inhibitor Start: 07-05-20 21 take 1 tablet by mouth once daily in the morning Pantoprazole 40 mg tablet,delayed release (DR/EC) Active 40 MG PO Every morning March 07, 2023 11:00pm Pantoprazole Sod ium 40 MG Oral Packet Take 1 tablet by mouth on a empty stomach Quantity: 0 Refills: 0 Ordered: 07-Mar-2023 DO Active Pantoprazole Sod ium Not-Taking triamcinolone acetonide 0.001 mg/mg oral paste (20 sources) Corticosteroid Start: 01-31-2024 Triamcinolone Acetonide 0.5 % cream Active 1 APPLIC TOPICAL Twice daily January 30, 2024 11:00pm Start: 01-31-2024 Triamcinolone Acetonide 0.1 % paste Active 1 APPLIC DENTAL January 30, 2024 11:00pm 1 application do not rinse afterwards and [...] (Original) ascorbic acid 500 mg oral tablet (8 sources) Vitamin C Start: 03-08-2023 End: 05-17-2023 take 1 tablet by mouth once daily Ascorbic Acid (Vitamin C) (Vitamin C) 500 mg Tablet Discontinued 500 MG PO Daily March 07, 2023 11:00pm May 17, 2023 9:50am benazepril (20 sources) Angiotensin Converting Enzyme Inhibitor Benazepril HCl Not-Taking benzonatate 100 mg oral capsule (20 sources) Non-narcotic Antitussive Start: 02-28-2014 take 1 capsule by mouth every eight hours Benzonatate 100 MG 1 capsule as needed Orally Three times a day for As needed for cough or wheeze February, Not-Taking busPIRone (20 sources) busPIRone HCl Not-Taking calcium carbonate 1500 mg / cholecalciferol 0.01 mg oral tablet (8 sources) Vitamin D Start: 03-08-2023 End: 05-17-2023 take 1 tablet by mouth once daily Calcium Carbonate-Vitamin D3 (Calcium 600 + D(3)) 600 mg-10 mcg (400 unit) Tablet Discontinued 1 TAB PO Daily March 07, 2023 11:00pm May 17, 2023 9:50am carvedilol 3.125 mg oral tablet (20 sources) alpha-Adrenergic Stefan, beta-Adrenergic Stefan Start: 02-11-2024 End: 02-26-2024 take 1 tablet by mouth twice daily at mealtime Carvedilol 3.125 mg tablet Discontinued 0 .ROUTE .COMPLEX 180 February 11, 2024 6:04am February 26, 2024 9:53am TAKE 1 TABLET BY MOUTH TWICE DAILY WITH FOOD Start: 05-18-2023 End: 05-18-2023 Carvedilol 3.125 mg tablet Discontinued 12.5 MG PO Twice daily May 18, 2023 10:38am May 18, 2023 1:48pm Please do not take if you are feeling lightheaded or have a blood pressure less than 120 systolic at home Start: 05-18-2023 End: 05-18-2023 Carvedilol Discontinued 12.5 [...] 12.5 MG PO Twice daily 60 May 17, 2023 11:00pm January 31, 2024 9:34am must administer with a meal/food Start: 02-14-2023 End: 03-05-2024 take 1 tablet by mouth twice daily Carvedilol 3.125 mg tablet Discontinued 3.125 MG PO Twice daily January 30, 2024 11:00pm February 11, 2024 6:04am Comment on above: TAKE 1 TABLET BY TINA TH TWICE A DAY WITH FOOD/MEAL cefdinir 300 mg oral capsule (5 sources) Cephalosporin Antibacterial Start: 02-13-20 End: 02-26-20 take 1 capsule by mouth twice daily Cefdinir 300 mg capsule Discontinued 300 MG PO Twice daily 14 7 February 12, 2024 11:00pm February 26, 2024 9:49am clopidogrel 75 mg oral tablet (20 sources) [id number] Platelet Inhibitor Start: 05-09-20 End: 10-08-20 take 1 tablet by mouth once daily Clopidogrel 75 mg tablet Discontinued 75 MG PO Daily May 16, 2023 11:00pm June 16, 2024 10:42am Start: 05-09-2023 clopidogrel (P LAVIX) 75 mg tablet TAKE 8 TABLETS BY MOUTH ON DAY ONE THEN TAKE 1 TABLET BY MOUTH DAILY 0 05/09/2023 Active Comment on above: TAKE 8 TABLETS BY MO [facility] ON DAY ONE THEN TAKE 1 TABLET BY MOUTH DAILY irbesartan 150 mg oral tablet (20 sources) Angiotensin 2 Receptor Stefan Start: End: take 1 tablet by mouth once daily in the morning Irbesartan 150 mg tablet Discontinued 150 MG PO Every morning March 07, 2023 11:00pm February 27, 2024 9:37am take 1 tablet by mouth twice hair ly Irbesartan 150 MG 1 tablet Orally twice daily Active losartan potassium 50 mg oral tablet (20 sources) Angiotensin 2 Receptor Stefan Start: 01-31-2024 End: 02-26-2024 take 1 tablet by mouth twice daily Losartan 50 mg tablet Discontinued 50 MG PO Twice daily January 30, 2024 11:00pm February 26, 2024 9:53am Start: 06-15-2023 [facility] Losartan Potassium 50 MG 1 tablet Orally twice daily May, Active take 1 tablet by tina once daily losartan (COZAAR) 100 mg tablet Take 100 mg by mouth once daily. Active take 1 tablet by tina once daily Losartan Potassium 50 MG 1 tablet Orally Once a day for 90 days Active Comment on above: Take 100 mg by mouth once daily. Multivitamin preparation (7 sources) Start: 03-08-2023 End: 05-17-2023 take 1 tablet by mouth once daily Multivitamin Discontinued 1 TAB PO Daily March 08, 2023 12:00am May 17, 2023 10:50am Start: 03-08-2023 take 1 tablet by tina th once daily Multivitamin Active 1 TAB PO Daily March 08, 2023 12:00am Multivitamin Tablet (1 source) Start: 03-08-2023 End: 05-17-2023 take 1 tablet by mouth once daily Multivitamin Tablet Discontinued 1 TAB PO Daily March 07, 2023 11:00pm May 17, 2023 9:50am NIFEdipine 30 mg osmotic 24 hr extended release oral tablet (13 sources) Dihydropyridine Calcium Channel Stefan Start: 02-20-2024 End: 03-19-2024 take 1 tablet by mouth once daily Nifedipine 30 mg tablet extended release 24hr Discontinued 30 MG PO Daily February 25, 2024 11:00pm March 19, 2024 1:54pm 24 hr nitroglycerin 0.2 mg/hr transdermal system (10 sources) Nitrate Vasodilator Start: 03-08-2023 End: 05-17-2023 apply 0.2 mg transdermal route every hour Nitroglycerin 0.2 mg/hr patch 24 hour Discontinued 0.2 MG TRANSDERML Daily March 07, 2023 11:00pm May 17, 2023 9:50am Start: 03-08-2023 End: 05-17-2023 Nitroglycerin Discontinued 0 .2 MG TRANSDERML Daily March 08, 2023 12:00am May 17, 2023 10:50am Start: 03-07-2023 apply 1 dose transde rmal route once daily, then apply 1 dose transdermal route every twenty-four hours Nitroglycerin 0.2 MG/HR Transdermal Patch 24 Hour APPLY PATCH FOR 12 TO 14 HOURS DAILY, THEN REMOVE Quantity: 90 Refills: 3 Ordered: 07-Mar-2023 Edinson Perry DO Start : 07-Mar-2023 Active new start potassium chloride 10 meq extended release oral tablet (20 sources) Start: 03-08-2023 End: 04-22-2024 Potassium Chloride 10 mEq ta blet extended release Discontinued 10 MEQ PO EVERY 3 WEEKS March 07, 2023 11:00pm April 22, 2024 12:22pm 3 times a week on even days Start: 03-08-2023 take 10 mEq by mouth once daily in the morning Potassium Chloride Active 10 MEQ PO Every morning March 08, 2023 12:00am take 1 tablet by tina th twice daily potassium chloride CR 10 mEq ER tablet Take 1 tablet (10 mEq) by mouth 2 times a day. Do not crush, chew, or split. Active take 1 tablet by tina th at mealtime, then take 1 tablet by mouth once daily K-Tab 10 MEQ 1 tablet with food Orally 1 -2 tabs daily with furosemide for 90 days Active take 1 tablet by tina th every other day at mealtime K-Tab 10 MEQ 1 tablet with food Orally qod for 90 days Active take 1 tablet by mouth once marylin y Potassium Chloride Iram ER 10 MEQ Oral Tablet Extended Release TAKE 1 TABLET DAILY. Quantity: 90 Refills: 3 Ordered: 07-Mar-2023 DO Active pravastatin sodium 40 mg oral tablet (20 sources) HMG-CoA Reductase Inhibitor Start: 03-08-2023 End: 03-05-2024 take 1 tablet by mouth once daily in the evening Pravastatin 40 mg tablet Discontinued 40 MG PO Every evening March 07, 2023 11:00pm February 02, 2024 11:10am Comment on above: Take 40 mg by mouth every evening. predniSONE 20 mg oral tablet (20 sources) Start: 02-28-2014 take 1 tablet by mouth every twelve hours predniSONE 20 MG 1 tablet with food or milk Orally Twice a day for 3 day(s) February, Not-Taking Psyllium Husk (Metamucil) 0.4 gram Capsule (8 sources) Start: 03-08-2023 End: 05-17-2023 Psyllium Husk (Metamucil) 0.4 gram Capsule Discontinued 0.4 GM PO Daily as needed for Constipation March 07, 2023 11:00pm May 17, 2023 9:50am Start: 03-08-2023 End: 05-17-2023 Psyllium Husk (Metamucil) 0. 4 gram Capsule Discontinued 0.4 GM PO Daily March 08, 2023 12:00am May 17, 2023 10:50am Start: 03-08-2023 Psyllium Husk (Metamucil) 0.4 gram Capsule Active 0.4 GM PO Daily March 08, 2023 12:00am regadenoson (Lexiscan) injection 0.4 mg (1 source) Start: 03-12-2024 End: 03-12-2024 0.4 mg, intravenous, Once, On Sun03/12/24 at 0915, For 1 dose rOPINIRole 0.25 mg oral tablet (20 sources) Nonergot Dopamine Agonist Start: 12-18-2023 End: 02-27-2024 take 1 tablet by mouth once daily Ropinirole 0.25 mg tablet Discontinued 0.25 MG PO Daily 90 December 18, 2023 9:31am February 27, 2024 9:38am Start: 11-23-2022 End: 05-17-2023 take 1 tablet by mouth once daily at bedtime as needed Ropinirole 0.25 mg tablet Discontinued 0.25 MG PO Daily at bedtime as needed for restless legs March 07, 2023 11:00pm May 17, 2023 9:51am rosuvastatin calcium 40 mg oral tablet (20 sources) HMG-CoA Reductase Inhibitor Start: 02-02-2024 End: 02-06-2024 take 1 tablet by mouth once daily Rosuvastatin 40 mg tablet Discontinued 40 MG PO Daily 90 February 06, 2024 11:11am February 06, 2024 11:12am sacubitril 24 mg / valsartan 26 mg oral tablet (13 sources) Angiotensin 2 Receptor Stefan Start: 02-20-2024 End: 03-19-2024 take 1 tablet by mouth twice daily Sacubitril-Valsar patton (Entresto) 24-26 mg tablet Discontinued 1 TAB PO Twice daily February 25, 2024 11:00pm March 19, 2024 1:54pm sulfamethoxazole 800 mg / trimethoprim 160 mg oral tablet (20 sources) Dihydrofolate Reductase Inhibitor Antibacterial, Sulfonamide Antimicrobial Start: 10-27-2022 take 1 tablet by mouth every twelve hours Bactrim DS 800-160 MG 1 tablet Orally Twice a day for 5 days Sep, Not-Taking Tc-99m tetrofosmin (Myoview) injection 10 millicurie (1 source) Start: 03-12-2024 End: 03-12-2024 10 millicurie, intravenous, Once in imaging, Starting on Sun03/12/24 at 0836, For 1 dose, Administer 45 to 90 minutes prior to imaging unless otherwise indicated. Tc-99m tetrofosmin (Myoview) injection 30 millicurie (1 source) Start: 03-12-2024 End: 03-12-2024 30 millicurie, intravenous, Once in imaging, Starting on Sun03/12/24 at 0945, For 1 dose, Administer 45 to 90 minutes prior to imaging unless otherwise indicated. temazepam 15 mg oral capsule (20 sources) Benzodiazepine Start: 12-21-2022 End: 09-10-2024 take 1 capsule by mouth once daily at bedtime Temazepam 15 mg capsule Discontinued 15 MG PO Daily at bedtime March 07, 2023 11:00pm June 13, 2024 1:15pm Temazepam Not-Reji ashre Comment on above: Take by mouth at bed time as needed. ticagrelor 90 mg oral tablet (12 sources) Start: 03-09-2023 End: 05-17-2023 take 1 tablet by mouth twice daily Ticagrelor (Brilinta) 90 mg tablet Discontinued 90 MG PO Twice daily 180 March 08, 2023 11:00pm May 17, 2023 1:07pm Problems Active Problems Problem Classification Problem Date [...] diastolic (congestive) heart failure] Onset: 02-14-2023 Chronic Comment on above: - [facility] w/ PCI/stent L AD, RCA (Feb, 2023)- Echo w/ LVEF 60%, ELY, normal RV size/function, RVSP 41 - 01/2024 Problem List clean-u p per request of Phys. EHR Cmte Coronary atherosclerosis and other heart disease (20 sources) Angina, class III; Translations: [Other and unspecified angina pectoris] Onset: 03-09-2023 Chronic Comment on above: [facility] w/ PCI/stent LAD , RCA (Feb, 2023) Problem List clean-u p per request of Phys. EHR Cmte Deficiency and other anemia (20 sources) Anemia; Translations: [Anemia, unspecified] 06-04-2023 Episodic Deficiency and other anemia (7 sources) Anemia, unspecified; Translations: [Anemia, unspecified] Onset: 03-07-2023 Episodic Diseases of mouth; excluding dental (20 sources) Stomatitis; Translations: [Other forms of stomatitis] Resolved: 03-24-2020 Episodic Disorders of lipid metabolism (20 sources) Pure hypercholesterolemia; Translations: [Familial hypercholesterolemia] Onset: 10-29-1957 Chronic Comment on above: Problem List clean-u p per request of Phys. EHR Cmte E Codes: Adverse effects of medical drugs (20 sources) Adverse reaction to drug; Translations: [Adverse effect of unspecified drugs, medicaments and biological substances, subsequent encounter] Episodic Esophageal disorders (20 sources) Gastro-esophageal reflux disease with esophagitis; Translations: [Gastroesophageal reflux disease with esophagitis without hemorrhage] Onset: 02-14-2023 01-31-2024 Chronic Essential hypertension (20 sources) Essential hypertension; Translations: [Essential (primary) hypertension] Onset: 03-01-2023 Chronic Comment on above: Problem List clean-u p per request of Phys. EHR Cmte Genitourinary symptoms and ill-defined conditions (20 sources) Urinary tract infectious disease; Translations: [Unspecified symptoms and signs involving the genitourinary system] Episodic Headache; including migraine (20 sources) Episodic tension-type headache; Translations: [Episodic tension-type headache, not intractable] Onset: 10-19-2015 Chronic Hypertension with complications and secondary hypertension (10 sources) Hypertensive heart disease with heart failure; Translations: [Hypertensive emergency] Onset: 02-14-2023 05-17-2023 Chronic Comment on above: Problem List clean-u p per request of Phys. 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; Translations: [MCFP CURRENT USE OF ASPIRIN] Onset: 02-14-2023 Episodic Other aftercare (1 source) Other custodial (current) drug therapy; Translations: [OTH EDITORIAL ASSISTANT CURRENT DRUG THERAPY] Onset: 02-14-2023 Episodic Other [...] diseases of veins and lymphatics (20 sources) Venous insufficiency (chronic) (peripheral); Translations: [Venous [...] adrenal gland, unspecified Chronic Other endocrine disorders (6 sources) Adrenal mass; Translations: [Other specified disorders of [...] initial encounter] Episodic Other lower respiratory disease (3 sources) Multiple nodules of lung; Translations: [Other [...] Episodic Other lower respiratory disease (7 sources) Acute cardiac pulmonary edema ; Translations: [Acute pulmonary edema] 05-17-2023 Episodic Comment on above: Problem List clean-u p per request of Phys. EHR Cmte Other lower respiratory disease (7 sources) Hypoxia; Translations: [Hypoxemia] 05-17-2023 Episodic Comment on above: Problem List clean-u p per request of Phys. EHR Cmte Other lower respiratory disease (1 source) Hypoxemia; [...] right hip] Episodic Other non-traumatic joint disorders (3 sources) Pain in right knee; Translations: [Chronic pain of right knee] 01-31-2024 Episodic Other non-traumatic joint disorders (1 source) Hip pain; Translations: [Pain in right hip] 06-26-2024 Episodic Other nutritional; endocrine; and metabolic disorders [...] Translations: [Body mass index (BMI) 32.0-32.9, adult] Onset: 03-05-2024 03-05-2024 Chronic Other nutritional; endocrine; and metabolic disorders (4 sources) Other obesity due to excess calories Chronic Other nutritional; endocrine; and metabolic disorders (5 sources) Body mass index (BMI) 32.0-32.9, adult; Translations: [Body mass index (BMI) 32.0-32.9, adult] Onset: 03-05-2024 Chronic Other nutritional; endocrine; and metabolic disorders (1 source) Body mass index (BMI) 33.0-33.9, adult Chronic Other screening for suspected conditions (not mental disorders or infectious disease) (19 sources) Encounter for screening mammogram for malignant neoplasm of breast; Translations: [Cardiovascular stress test abnormal] Onset: 11-11-2018 Episodic Comment on above: Problem List clean-u p per request of Phys. 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 Unclassified (3 sources) CONTACT W/AND (SUSP) [...] Palpitations; Translations: [Bradycardia, unspecified] Onset: 08-17-2015 Episodic Coronary atherosclerosis and other heart disease (3 sources) Patient post percutaneous transluminal coronary angioplasty; Translations: [Percutaneous transluminal coronary angioplasty status] Onset: 10-17-2023 Episodic Esophageal disorders (20 sources) Esophageal disorders; [...] Onset: 02-08-2016 Episodic Other lower respiratory disease (7 sources) Shortness of breath; Translations: [SHORTNESS OF BREATH] Onset: 02-08-2023 Episodic Other lower respiratory disease (2 sources) Acute pulmonary edema; Translations: [Acute edema of lung, unspecified] Onset: 05-17-2023 05-18-2023 Episodic Other lower respiratory disease (20 sources) Cough; Translations: [Cough, unspecified] Onset: 11-25-2014 Episodic Other lower respiratory disease (6 sources) Dyspnea; Translations: [Shortness of breath] Onset: 10-17-2023 10-17-2023 Episodic Other nervous system disorders (19 sources) [...] Insomnia; Translations: [Insomnia, unspecified] Onset: 06-23-2015 Episodic Screening and history of mental health and substance abuse codes (12 sources) Ex-smoker; Translations: [Personal history of tobacco use] Onset: 10-17-2023 10-17-2023 Episodic Comment on above: 1998; Spondylosis; intervertebral disc disorders; other back problems [...] U09.9 Unclassified (1 source) Chronic cough R05.3 Unclassified (6 sources) Onset: 03-05-2024 03-05-2024 Urinary tract infections (20 sources) Urethral syndrome; 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, unspecified] Resolved: 07-18-2021 Episodic Viral infection (6 sources) Disease caused by 2019-nCoV; Translations: [COVID-19] Onset: 10-17-2023 10-17-2023 Episodic Results Test Name Value Interpretation Reference Range Facility Estimated glomerular filtrat ion rate (GFR) non- Americanon 05-20-2024 GFR/1.73 sq M.predicted among non-blacks MDRD (S/P/Bld) [Vol rate/Area] 39 mL/min/{1.73_m2} Low >=60 [facility] - Chemistry and C hemistry - challengeon 05-20-2024 Calcium [Mass/Vol] 8.8 mg/dL 8.5-10.1 [facility] Chloride [Moles/Vol] 106 mmol/L 98-107 [facility] CO2 [Moles/Vol] 30.8 mmol/L 21.0-32.0 [facility] Creatinine [Mass/Vol] 1.30 mg/dL High 0.55-1.02 [facility] GFR/1.73 sq M.predicted MDRD (S/P/Bld) [Vol rate/Area] 48 mL/min/{1.73_m2} Low >=60 [facility] Glucose [Mass/Vol] 89 mg/dL 74-106 [facility] Potassium [Moles/Vol] 4.3 mmol/L 3.5-5.1 [facility] Sodium [Moles/Vol] 143 mmol/L 136-145 [facility] Urea nitrogen [Mass/Vol] 24.0 mg/dL High 7.0-18.0 [facility] Urea nitrogen/Creatinine [Mass ratio] 18.5 mg/mg [facility] Serum or plasma anion gap de terminationon 05-20-2024 Anion gap [Moles/Vol] 10.5 mmol/L [facility] Estimated glomerular filtrat ion rate (GFR) non- Americanon 04-30-2024 GFR/1.73 sq M.predicted among non-blacks MDRD (S/P/Bld) [Vol rate/Area] 37 mL/min/{1.73_m2} Low >=60 [facility] - Chemistry and C hemistry - challengeon 04-30-2024 Calcium [Mass/Vol] 8.5 mg/dL 8.5-10.1 [facility] Chloride [Moles/Vol] 106 mmol/L 98-107 [facility] CO2 [Moles/Vol] 28.7 mmol/L 21.0-32.0 [facility] Creatinine [Mass/Vol] 1.36 mg/dL High 0.55-1.02 [facility] GFR/1.73 sq M.predicted MDRD (S/P/Bld) [Vol rate/Area] 45 mL/min/{1.73_m2} Low >=60 [facility] Glucose [Mass/Vol] 98 mg/dL 74-106 [facility] Potassium [Moles/Vol] 4.3 mmol/L 3.5-5.1 [facility] Sodium [Moles/Vol] 142 mmol/L 136-145 [facility] Urea nitrogen [Mass/Vol] 26.0 mg/dL High 7.0-18.0 [facility] Urea nitrogen/Creatinine [Mass ratio] 19.1 mg/mg [facility] Serum or plasma anion gap de terminationon 04-30-2024 Anion gap [Moles/Vol] 11.6 mmol/L [facility] NM Heart Perfusion W stress and W radionuclide Rivka 03-12-2024 Normal Lexiscan Myov iew cardiac perfusion stress test. No evidence of ischemia or myocardial infarction by perfusion imaging. Normal left ventricular systolic function, ejection fraction 88%. When compared previous study changes are noted. Previous study showed anterior wall ischemia which was not present during the study. Signed by: Faustino Zuniga 03/12/2024 4:34 PM Dictation workstation: [id number] [id number] MMODAL Interpreted By: Faustino Zuniga, Melinda Ignacio STUDY: MYOCARDIAL PERFUSION STRESS TEST WITH LEXISCAN Performing facility: [facility], [address] [place] [address], [address], [address] Provider: Holden Rosado RN, FILLER OPERATOR PCP: Dr. Ksenia Hathaway Supervising provider: Anthony Perry DO, FACC INDICATION: ASHD HISTORY: Gender: F; Age: 83 y/o ; Height: HT 165.1 cm cm; Weight: WT 88.905 kg kg. CAD; High Cholesterol; HTN; Fatigue; Quit smoking 44 years ago. Cardiac catheterization on 2022. PTCA on 2022. COMPARISON: Previous nuclear testing completed [id number] at [facility]. ACCESSION NUMBER(S): [id number] ORDERING CLINICIAN: HOLDEN ROSADO TECHNIQUE: ONE DAY protocol. Stress injection: Date:03-12-24, 34.5 mCi of Myoview IV 20 seconds after rapid injection of Lexiscan. Rest injection: Date: 03-12-24, 11.0 mCi of Myoview IV at rest. The patient had a rapid injection of 0.4 mg of Lexiscan IV over 10 seconds. Imaging was performed by gated tomographic technique. Reason for Lexiscan: dizziness/unsteady/fall risk STRESS TEST DATA: Resting heart rate was 62 BPM. Resting blood pressure was 114/66 mmHg. Peak blood pressure was 106/62 mmHg. Peak heart rate was 81 BPM. TEST TERMINATED DUE TO: Protocol completed FINDINGS: STRESS TEST RESULTS: Resting electrocardiogram revealed normal sinus rhythm. There were no significant ischemic ECG changes or dysrhythmias. The patient did not have chest pains/symptoms during procedure. There was a normal recovery phase. IMAGING RESULTS: Image quality was good. Rest and stress tomographic images were reviewed and revealed normal perfusion without evidence of ischemia, myocardial infarction, or left ventricular dilatation with stress. Overall left ventricular systolic function appeared to be normal without regional wall motion abnormalities. Ejection fraction was 88%. TID is 1.04 and is normal. There were evidence of breast attenuation artifact. MMODAL Faustino Zuniga MD - 03/12/2024 Interpreted By: Faustino Zuniga and Giannuzzi Michael STUDY: MYOCARDIAL PERFUSION STRESS TEST WITH LEXISCAN Performing facility: [facility], [address] [place] [address], [address], [place] [address] [facility] Provider: Holden Rosado RN, FILLER OPERATOR PCP: Dr. Ksenia Hathaway Supervising provider: Anthony Perry DO, FACC INDICATION: ASHD HISTORY: Gender: F; Age: 83 y/o ; Height: HT 165.1 cm cm; Weight: WT 88.905 kg kg. CAD; High Cholesterol; HTN; Fatigue; Quit smoking 44 years ago. Cardiac catheterization on 2022. PTCA on 2022. COMPARISON: Previous nuclear testing completed at [facility]. ACCESSION NUMBER(S): [id number] ORDERING CLINICIAN: HOLDEN ROSADO TECHNIQUE: ONE DAY protocol. Stress injection: Date:03-12-24, 34.5 mCi of Myoview IV 20 seconds after rapid injection of Lexiscan. Rest injection: Date: 03-12-24, 11.0 mCi of Myoview IV at rest. The patient had a rapid injection of 0.4 mg of Lexiscan IV over 10 seconds. Imaging was performed by gated tomographic technique. Reason for Lexiscan: dizziness/unsteady/fall risk STRESS TEST DATA: Resting heart rate was 62 BPM. Resting blood pressure was 114/66 mmHg. Peak blood pressure was 106/62 mmHg. Peak heart rate was 81 BPM. TEST TERMINATED DUE TO: Protocol completed FINDINGS: STRESS TEST RESULTS: Resting electrocardiogram revealed normal sinus rhythm. There were no significant ischemic ECG changes or dysrhythmias. The patient did not have chest pains/symptoms during procedure. There was a normal recovery phase. IMAGING RESULTS: Image quality was good. Rest and stress tomographic images were reviewed and revealed normal perfusion without evidence of ischemia, myocardial infarction, or left ventricular dilatation with stress. Overall left ventricular systolic function appeared to be normal without regional wall motion abnormalities. Ejection fraction was 88%. TID is 1.04 and is normal. There were evidence of breast attenuation artifact. IMPRESSION: Normal Lexiscan Myoview cardiac perfusion stress test. No evidence of ischemia or myocardial infarction by perfusion imaging. Normal left ventricular systolic function, ejection fraction 88%. When compared previous study changes are noted. Previous study showed anterior wall ischemia which was not present during the study. Signed by: Faustino Zuniga 03/12/2024 4:34 PM Dictation workstation: [id number] [facility] Work Phone: Radiology Study observation (narrative) [facility] Work Phone: NM Heart Perfusion W stress and W radionuclide IVOrdered By: Faustino Zuniga on 03-12-2024 [facility] Work Phone: NUCLEAR STRESS TESTon 2023 NUCLEAR STRESS TEST Interpreted By: Faustino Zuniga and Giannuzzi Michael STUDY: MYOCARDIAL PERFUSION STRESS TEST WITH LEXISCAN Performing facility: [facility], [address] [place] [address], [address], [place] [address] [facility] Provider: Holden Rosado RN, FILLER OPERATOR PCP: Dr. Ksenia Hathaway Supervising provider: Anthony Perry DO, [facility] INDICATION: ASHD HISTORY: Gender: F; Age: 83 y/o ; Height: HT 165.1 cm cm; Weight: WT 88.905 kg kg. CAD; High Cholesterol; HTN; Fatigue; Quit smoking 44 years ago. Cardiac catheterization on 2022. PTCA on 2022. COMPARISON: Previous nuclear testing completed at [facility]. ACCESSION NUMBER(S): [id number] ORDERING CLINICIAN: HOLDEN ROSADO TECHNIQUE: ONE DAY protocol. Stress injection: Date:03-12-24, 34.5 mCi of Myoview IV 20 seconds after rapid injection of Lexiscan. Rest injection: Date: 03-12-24, 11.0 mCi of Myoview IV at rest. The patient had a rapid injection of 0.4 mg of Lexiscan IV over 10 seconds. Imaging was performed by gated tomographic technique. Reason for Lexiscan: dizziness/unsteady/fall risk STRESS TEST DATA: Resting heart rate was 62 BPM. Resting blood pressure was 114/66 mmHg. Peak blood pressure was 106/62 mmHg. Peak heart rate was 81 BPM. TEST TERMINATED DUE TO: Protocol completed FINDINGS: STRESS TEST RESULTS: Resting electrocardiogram revealed normal sinus rhythm. There were no significant ischemic ECG changes or dysrhythmias. The patient did not have chest pains/symptoms during procedure. There was a normal recovery phase. IMAGING RESULTS: Image quality was good. Rest and stress tomographic images were reviewed and revealed normal perfusion without evidence of ischemia, myocardial infarction, or left ventricular dilatation with stress. Overall left ventricular systolic function appeared to be normal without regional wall motion abnormalities. Ejection fraction was 88%. TID is 1.04 and is normal. There were evidence of breast attenuation artifact. IMPRESSION: Normal Lexiscan Myoview cardiac perfusion stress test. No evidence of ischemia or myocardial infarction by perfusion imaging. Normal left ventricular systolic function, ejection fraction 88%. When compared previous study changes are noted. Previous study showed anterior wall ischemia which was not present during the study. Signed by: Faustino Zuniga 03/12/2024 4:34 PM Dictation workstation: [id number] [facility] Basic Metabolic Panelon 05-0 Anion gap [Moles/Vol] 10.1 mmol/L Normal 6.0-15.0 [facility] Comment on above: Performed By: #### C BC, BMP, PHOS, MG #### [place] [address] [place] Calcium [Mass/Vol] 9.2 mg/dL Normal 8.6-10.3 [facility] Comment on above: Result Comment: PERF ORMED BY: [place] [address] PATHOLOGIST PROTOZOOLOGY TEACHER JAMAAL MO M.D. Performed By: #### C BC, BMP, PHOS, MG #### [place] [address] [place] Chloride [Moles/Vol] 104 mmol/L Normal 98-107 [facility] Comment on above: Performed By: #### C BC, BMP, PHOS, MG #### [place] [address] [place] CO2 [Moles/Vol] 32.1 mmol/L High 21.0-31.0 [facility] Comment on above: Performed By: #### C BC, BMP, PHOS, MG #### [place] [address] [place] Creatinine [Mass/Vol] 1.36 mg/dL High 0.60-1.20 [facility] Comment on above: Performed By: #### C BC, BMP, PHOS, MG #### [place] [id number] [place] GFR/1.73 sq M.predicted MDRD (S/P/Bld) [Vol rate/Area] 39.134 mL/min/{1.73_m2} Normal [facility] Comment on above: Performed By: #### C BC, BMP, PHOS, MG #### [facility] [address] [place] [address] [place] Glucose [Mass/Vol] 79 mg/dL Normal 70-100 [facility] Comment on above: Result Comment: Coker Glucose Reference Range is dependent on time and content of last meal. Glucose of more than 200 mg/dL in a nonstressed, ambulatory subject supports the diagnosis of Diabetes Mellitus. ADA recommended reference range Performed By: #### C BC, BMP, PHOS, MG #### [facility] [address] Potassium [Moles/Vol] 5.2 mmol/L High 3.5-5.1 [facility] Comment on above: Performed By: #### C BC, BMP, PHOS, MG #### [facility] [address] Sodium [Moles/Vol] 141 mmol/L Normal 136-145 [facility] Comment on above: Performed By: #### C BC, BMP, PHOS, MG #### [facility] [address] [place] [address] [place] Urea nitrogen [Mass/Vol] 26 mg/dL High 7-25 [facility] Comment on above: Performed By: #### C BC, BMP, PHOS, MG #### [facility] [address] [place] [id number] [facility] Calcium [Mass/volume] in Ser um or PlasmaOrdered By: Holden Rosado on 03-05-2024 Calcium [Mass/Vol] 9.2 mg/dL 8.6-10.3 [facility] Carbon dioxide, total [Moles /volume] in Serum or PlasmaOrdered By: Holden Rosado on 03-05-2024 CO2 [Moles/Vol] 32.1 mmol/L High 21.0-31.0 [facility] Chloride [Moles/volume] in S courtney or PlasmaOrdered By: Holden Rosado on 03-05-2024 Chloride [Moles/Vol] 104 mmol/L 98-107 [facility] Creatinine [Mass/volume] in Serum or PlasmaOrdered By: Holden Rosado on 03-05-2024 Creatinine [Mass/Vol] 1.36 mg/dL High 0.60-1.20 [facility] Glucose [Mass/volume] in Ser um or PlasmaOrdered By: Holden Rosado on 03-05-2024 Glucose [Mass/Vol] 79 mg/dL 70-100 [facility] Comment on above: ADA recommended refe rence rangeRandom Glucose Reference Range is dependent on time and content of last meal. Glucose of more than 200 mg/dL in a nonstressed, ambulatory subject supports the diagnosis of Diabetes Mellitus. No Panel InformationOrdered By: Holden Rosado on 03-05-2024 Estimated GFR (CKD-EPI) 39.134 mL/Min [facility] Creatinine Clearance (Chem N/A [facility] Potassium [Moles/volume] in Serum or PlasmaOrdered By: Holden Rosado on 03-05-2024 Potassium [Moles/Vol] 5.2 mmol/L High 3.5-5.1 [facility] Serum or plasma anion gap de terminationOrdered By: Holden Rosado on 03-05-2024 Anion gap [Moles/Vol] 10.1 mmol/L 6.0-15.0 [facility] Sodium [Moles/volume] in Ser um or PlasmaOrdered By: Holden Rosado on 03-05-2024 Sodium [Moles/Vol] 141 mmol/L 136-145 [facility] Urea nitrogen [Mass/volume] in Serum or PlasmaOrdered By: Holden Rosado on 03-05-2024 Urea nitrogen [Mass/Vol] 26 mg/dL High 7-25 [facility] Basophils Auto (Bld) [#/Vol] on 02-20-2024 Basophils (Bld) [#/Vol] 0.0 10 3/uL 0.0-0.1 [facility] Basophils/100 WBC Auto (Bld) on 02-20-2024 Basophils/100 WBC (Bld) 0.8 % 0.2-2.0 [facility] Eosinophils/100 WBC Auto (Bl d)on 02-20-2024 Eosinophils/100 WBC (Bld) 2.8 % 0.9-7.0 [facility] Erythrocyte distribution wid th Auto (RBC) [Ratio]on 02-20-2024 Erythrocyte distribution width (RBC) [Ratio] 13.1 % 11.0-15.0 [facility] Estimated glomerular filtrat ion rate (GFR) non- Americanon 02-20-2024 GFR/1.73 sq M.predicted among non-blacks MDRD (S/P/Bld) [Vol rate/Area] 49 mL/min/{1.73_m2} >=60 [facility] Globulin Calc (S) [Mass/Vol] on 02-20-2024 Globulin (S) [Mass/Vol] 2.7 g/dL [facility] Hematocrit Auto (Bld) [Volum e fraction]on 02-20-2024 Hematocrit (Bld) [Volume fraction] 29.2 % 36.0-48.0 [facility] Hemoglobin [Mass/volume] in Bloodon 02-20-2024 Hemoglobin (Bld) [Mass/Vol] 9.5 g/dL 12.0-16.0 [facility] - Chemistry and C hemistry - challengeon 02-20-2024 Albumin [Mass/Vol] 2.9 g/dL 3.4-5.0 [facility] ALP [Catalytic activity/Vol] 44 U/L 46-116 [facility] ALT [Catalytic activity/Vol] 13 U/L 14-59 [facility] AST [Catalytic activity/Vol] 14 U/L 15-37 [facility] Bilirubin [Mass/Vol] 0.6 mg/dL 0.2-1.0 [facility] Calcium [Mass/Vol] 8.9 mg/dL 8.5-10.1 [facility] Chloride [Moles/Vol] 107 mmol/L 98-107 [facility] CO2 [Moles/Vol] 27.9 mmol/L 21.0-32.0 [facility] Creatinine [Mass/Vol] 1.08 mg/dL 0.55-1.02 [facility] GFR/1.73 sq M.predicted MDRD (S/P/Bld) [Vol rate/Area] 59 mL/min/{1.73_m2} >=60 [facility] Glucose [Mass/Vol] 83 mg/dL 74-106 [facility] Potassium [Moles/Vol] 3.8 mmol/L 3.5-5.1 [facility] Protein [Mass/Vol] 5.6 g/dL 6.4-8.2 [facility] Sodium [Moles/Vol] 141 mmol/L 136-145 [facility] Urea nitrogen [Mass/Vol] 18.0 mg/dL 7.0-18.0 [facility] Urea nitrogen/Creatinine [Mass ratio] 16.7 mg/mg [facility] - Hematology and Cell countson 02-20-2024 Immature granulocytes/100 WBC (Bld) 0.2 % 0.0-0.5 [facility] Leukocytes [#/volume] correc miguel for nucleated erythrocytes in Blood by Automated counon 02-20-2024 WBC corrected for nucl RBC Auto (Bld) [#/Vol] 4.7 10 3/uL 4.0-11.0 [facility] Lymphocytes Auto (Bld) [#/Vo l]on 02-20-2024 Lymphocytes (Bld) [#/Vol] 1.0 10 3/uL 1.2-3.8 [facility] Lymphocytes/100 WBC Auto (Bl d)on 02-20-2024 Lymphocytes/100 WBC (Bld) 21.8 % 20.5-60.0 [facility] MCH Auto (RBC) [Entitic mass ]on 02-20-2024 MCH (RBC) [Entitic mass] 29.2 pg 26.7-34.0 [facility] MCHC Auto (RBC) [Mass/Vol]on 02-20-2024 MCHC (RBC) [Mass/Vol] 32.5 g/dL 29.9-35.2 [facility] MCV Auto (RBC) [Entitic vol] on 02-20-2024 MCV (RBC) [Entitic vol] 89.8 fL 81.0-99.0 [facility] Monocytes Auto (Bld) [#/Vol] on 02-20-2024 Monocytes (Bld) [#/Vol] 0.7 10 3/uL 0.3-0.8 [facility] Monocytes/100 WBC Auto (Bld) on 02-20-2024 Monocytes/100 WBC (Bld) 14.2 % 1.7-12.0 [facility] Neutrophils Auto (Bld) [#/Vo l]on 02-20-2024 Neutrophils (Bld) [#/Vol] 2.8 10 3/uL 1.4-6.5 [facility] Neutrophils/100 WBC Auto (Bl d)on 02-20-2024 Neutrophils/100 WBC (Bld) 60.2 % 43.0-75.0 [facility] No Panel Informationon 02-19 Eosinophils # (Auto) 0.1 10 3/uL 0.0-0.7 [facility] Immature Granulocyte # (Auto) 0.01 10 3/uL 0.00-0.03 [facility] Platelet mean volume Auto (B ld) [Entitic vol]on 02-20-2024 Platelet mean volume (Bld) [Entitic vol] 10.5 fL 9.5-13.5 [facility] Platelets Auto (Bld) [#/Vol] on 02-20-2024 Platelets (Bld) [#/Vol] 250 10 3/uL 150-450 [facility] RBC Auto (Bld) [#/Vol]on RBC (Bld) [#/Vol] 3.25 10 6/uL 4.20-5.40 [facility] Serum or plasma albumin/glob ulin mass ratioon 02-20-2024 Albumin/Globulin [Mass ratio] 1.1 {ratio} [facility] Serum or plasma anion gap de terminationon 02-20-2024 Anion gap [Moles/Vol] 9.9 mmol/L [facility] Basophils Auto (Bld) [#/Vol] on 02-19-2024 Basophils (Bld) [#/Vol] 0.0 10 3/uL 0.0-0.1 [facility] Basophils/100 WBC Auto (Bld) on 02-19-2024 Basophils/100 WBC (Bld) 0.8 % 0.2-2.0 [facility] Cholesterol in LDL Calc [Mas s/Vol]on 02-19-2024 Cholesterol in LDL [Mass/Vol] 100.4 mg/dL [facility] Comment on above: <100 mg/dl [id number] 0-129 mg/dl NEAR OR ABOVE [id number] mg/dl BORDERLINE [id number] mg/dl HIGH>190 mg/dl VERY HIGH Cholesterol in VLDL Calc [Ma ss/Vol]on 02-19-2024 Cholesterol in VLDL [Mass/Vol] 15.6 mg/dL [facility] Eosinophils/100 WBC Auto (Bl d)on 02-19-2024 Eosinophils/100 WBC (Bld) 1.9 % 0.9-7.0 [facility] Erythrocyte distribution wid th Auto (RBC) [Ratio]on 02-19-2024 Erythrocyte distribution width (RBC) [Ratio] 13.2 % 11.0-15.0 [facility] Estimated glomerular filtrat ion rate (GFR) non- Americanon 02-19-2024 GFR/1.73 sq M.predicted among non-blacks MDRD (S/P/Bld) [Vol rate/Area] 44 mL/min/{1.73_m2} >=60 [facility] Globulin Calc (S) [Mass/Vol] on 02-19-2024 Globulin (S) [Mass/Vol] 2.8 g/dL [facility] Hematocrit Auto (Bld) [Volum e fraction]on 02-19-2024 Hematocrit (Bld) [Volume fraction] 31.2 % 36.0-48.0 [facility] Hemoglobin [Mass/volume] in Bloodon 02-19-2024 Hemoglobin (Bld) [Mass/Vol] 10.0 g/dL 12.0-16.0 [facility] Laboratory - Chemistry and C hemistry - challengeon 02-19-2024 Albumin [Mass/Vol] 3.2 g/dL 3.4-5.0 [facility] ALP [Catalytic activity/Vol] 49 U/L 46-116 [facility] ALT [Catalytic activity/Vol] 15 U/L 14-59 [facility] AST [Catalytic activity/Vol] 15 U/L 15-37 [facility] Bilirubin [Mass/Vol] 0.5 mg/dL 0.2-1.0 [facility] Calcium [Mass/Vol] 9.4 mg/dL 8.5-10.1 [facility] Chloride [Moles/Vol] 108 mmol/L 98-107 [facility] Cholesterol [Mass/Vol] 158 mg/dL <=200 [facility] Cholesterol in HDL [Mass/Vol] 42 mg/dL 40-60 [facility] Comment on above: > or =60 mg/dl - LOW CARDIOVASCULAR RISK<40 mg/dl - HIGH CARDIOVASCULAR RISK CO2 [Moles/Vol] 28.7 mmol/L 21.0-32.0 [facility] Creatinine [Mass/Vol] 1.18 mg/dL 0.55-1.02 [facility] GFR/1.73 sq M.predicted MDRD (S/P/Bld) [Vol rate/Area] 53 mL/min/{1.73_m2} >=60 [facility] Glucose [Mass/Vol] 93 mg/dL 74-106 [facility] Potassium [Moles/Vol] 4.0 mmol/L 3.5-5.1 [facility] Protein [Mass/Vol] 6.0 g/dL 6.4-8.2 [facility] Sodium [Moles/Vol] 145 mmol/L 136-145 [facility] Triglyceride [Mass/Vol] 78 mg/dL <=150 [facility] TSH Qn 4.696 m[IU]/L 0.358-3.740 [facility] Urea nitrogen [Mass/Vol] 20.0 mg/dL 7.0-18.0 [facility] Urea nitrogen/Creatinine [Mass ratio] 16.9 mg/mg [facility] Laboratory - Hematology and Cell countson 02-19-2024 Immature granulocytes/100 WBC (Bld) 0.6 % 0.0-0.5 [facility] Leukocytes [#/volume] correc miguel for nucleated erythrocytes in Blood by Automated counon 02-19-2024 WBC corrected for nucl RBC Auto (Bld) [#/Vol] 5.3 10 3/uL 4.0-11.0 [facility] Lymphocytes Auto (Bld) [#/Vo l]on 02-19-2024 Lymphocytes (Bld) [#/Vol] 1.1 10 3/uL 1.2-3.8 [facility] Lymphocytes/100 WBC Auto (Bl d)on 02-19-2024 Lymphocytes/100 WBC (Bld) 21.3 % 20.5-60.0 [facility] MCH Auto (RBC) [Entitic mass ]on 02-19-2024 MCH (RBC) [Entitic mass] 29.6 pg 26.7-34.0 [facility] MCHC Auto (RBC) [Mass/Vol]on 02-19-2024 MCHC (RBC) [Mass/Vol] 32.1 g/dL 29.9-35.2 [facility] MCV Auto (RBC) [Entitic vol] on 02-19-2024 MCV (RBC) [Entitic vol] 92.3 fL 81.0-99.0 [facility] Monocytes Auto (Bld) [#/Vol] on 02-19-2024 Monocytes (Bld) [#/Vol] 0.6 10 3/uL 0.3-0.8 [facility] Monocytes/100 WBC Auto (Bld) on 02-19-2024 Monocytes/100 WBC (Bld) 11.1 % 1.7-12.0 [facility] Neutrophils Auto (Bld) [#/Vo l]on 02-19-2024 Neutrophils (Bld) [#/Vol] 3.4 10 3/uL 1.4-6.5 [facility] Neutrophils/100 WBC Auto (Bl d)on 02-19-2024 Neutrophils/100 WBC (Bld) 64.3 % 43.0-75.0 [facility] No Panel Informationon 02-18 Eosinophils # (Auto) 0.1 10 3/uL 0.0-0.7 [facility] Immature Granulocyte # (Auto) 0.03 10 3/uL 0.00-0.03 [facility] Platelet mean volume Auto (B ld) [Entitic vol]on 02-19-2024 Platelet mean volume (Bld) [Entitic vol] 10.4 fL 9.5-13.5 [facility] Platelets Auto (Bld) [#/Vol] on 02-19-2024 Platelets (Bld) [#/Vol] 262 10 3/uL 150-450 [facility] RBC Auto (Bld) [#/Vol]on RBC (Bld) [#/Vol] 3.38 10 6/uL 4.20-5.40 [facility] Serum or plasma albumin/glob ulin mass ratioon 02-19-2024 Albumin/Globulin [Mass ratio] 1.1 {ratio} [facility] Serum or plasma anion gap de terminationon 02-19-2024 Anion gap [Moles/Vol] 12.3 mmol[facility] Serum or plasma total choles terol/high density lipoprotein (HDL) cholesterol mass anastasia 02-19-2024 Cholesterol.total/Cho lesterol in HDL [Mass ratio] 3.8 {ratio} [facility] Comment on above: 3.3 - 4.4 LOW RISK4. 4 - 7.1 AVERAGE RISK7.1 - 11.0 MODERATE RISK>11.0 HIGH RISK Basophils Auto (Bld) [#/Vol] on 02-18-2024 Basophils (Bld) [#/Vol] 0.0 10 3/uL 0.0-0.1 [facility] Basophils/100 WBC Auto (Bld) on 02-18-2024 Basophils/100 WBC (Bld) 0.4 % 0.2-2.0 [facility] Eosinophils/100 WBC Auto (Bl d)on 02-18-2024 Eosinophils/100 WBC (Bld) 1.2 % 0.9-7.0 [facility] Erythrocyte distribution wid th Auto (RBC) [Ratio]on 02-18-2024 Erythrocyte distribution width (RBC) [Ratio] 13.2 % 11.0-15.0 [facility] Estimated glomerular filtrat ion rate (GFR) non- Americanon 02-18-2024 GFR/1.73 sq M.predicted among non-blacks MDRD (S/P/Bld) [Vol rate/Area] 34 mL/min/{1.73_m2} >=60 [facility] Hematocrit Auto (Bld) [Volum e fraction]on 02-18-2024 Hematocrit (Bld) [Volume fraction] 31.7 % 36.0-48.0 [facility] Hemoglobin [Mass/volume] in Bloodon 02-18-2024 Hemoglobin (Bld) [Mass/Vol] 10.3 g/dL 12.0-16.0 [facility] Laboratory - Chemistry and C hemistry - challengeon 02-18-2024 Magnesium [Mass/Vol] 2.3 mg/dL 1.8-2.4 [facility] Natriuretic peptide B (Bld) [Mass/Vol] 800.0 pg/mL <=1800.0 [facility] Calcium [Mass/Vol] 9.0 mg/dL 8.5-10.1 [facility] Chloride [Moles/Vol] 106 mmol/L 98-107 [facility] CO2 [Moles/Vol] 30.4 mmol/L 21.0-32.0 [facility] Creatinine [Mass/Vol] 1.46 mg/dL 0.55-1.02 [facility] GFR/1.73 sq M.predicted MDRD (S/P/Bld) [Vol rate/Area] 42 mL/min/{1.73_m2} >=60 [facility] Glucose [Mass/Vol] 102 mg/dL 74-106 [facility] Potassium [Moles/Vol] 4.1 mmol/L 3.5-5.1 [facility] Sodium [Moles/Vol] 144 mmol/L 136-145 [facility] Urea nitrogen [Mass/Vol] 21.0 mg/dL 7.0-18.0 [facility] Urea nitrogen/Creatinine [Mass ratio] 14.4 mg/mg [facility] Laboratory - Hematology and Cell countson 02-18-2024 Immature granulocytes/100 WBC (Bld) 0.7 % 0.0-0.5 [facility] Leukocytes [#/volume] correc miguel for nucleated erythrocytes in Blood by Automated counon 02-18-2024 WBC corrected for nucl RBC Auto (Bld) [#/Vol] 6.8 10 3/uL 4.0-11.0 [facility] Lymphocytes Auto (Bld) [#/Vo l]on 02-18-2024 Lymphocytes (Bld) [#/Vol] 0.8 10 3/uL 1.2-3.8 [facility] Lymphocytes/100 WBC Auto (Bl d)on 02-18-2024 Lymphocytes/100 WBC (Bld) 11.2 % 20.5-60.0 [facility] MCH Auto (RBC) [Entitic mass ]on 02-18-2024 MCH (RBC) [Entitic mass] 29.3 pg 26.7-34.0 [facility] MCHC Auto (RBC) [Mass/Vol]on 02-18-2024 MCHC (RBC) [Mass/Vol] 32.5 g/dL 29.9-35.2 [facility] MCV Auto (RBC) [Entitic vol] on 02-18-2024 MCV (RBC) [Entitic vol] 90.1 fL 81.0-99.0 [facility] Monocytes Auto (Bld) [#/Vol] on 02-18-2024 Monocytes (Bld) [#/Vol] 0.6 10 3/uL 0.3-0.8 [facility] Monocytes/100 WBC Auto (Bld) on 02-18-2024 Monocytes/100 WBC (Bld) 9.5 % 1.7-12.0 [facility] Neutrophils Auto (Bld) [#/Vo l]on 02-18-2024 Neutrophils (Bld) [#/Vol] 5.2 10 3/uL 1.4-6.5 [facility] Neutrophils/100 WBC Auto (Bl d)on 02-18-2024 Neutrophils/100 WBC (Bld) 77.0 % 43.0-75.0 [facility] No Panel Informationon 02-17 Troponin I High Sensitivity 11.1 pg/mL 4.0-51.3 [facility] Comment on above: CUT-OFF POINTS HAVE BEEN ESTABLISHED BASED ON THE FOURTHUNIVERSAL DEFINITION OF MYOCARDIAL INFARCTION. THE UPPERREFERENCE LIMIT (URL) OF TROPONIN, DEFINED THE 99THPERCENTILE OF cTnI DISTRIBUTION IN A REFERENCE POPULATION,HAS BEEN CONFIRMED THE DECISION THRESHOLD FOR MIDIAGNOSIS.99TH PERCENTILE = 51.4 PG/MLNOTE: HIGH-SENSITIVITY TROPONIN ASSAY IS NOT INTENDED TO BEUSED IN ISOLATION BUT SHOULD BE INTERPRETED IN CONJUNCTIONWITH OTHER DIAGNOSTIC AND CLINICAL INFORMATION. Eosinophils # (Auto) 0.1 10 3/uL 0.0-0.7 [facility] Immature Granulocyte # (Auto) 0.05 10 3/uL 0.00-0.03 [facility] Platelet mean volume Auto (B ld) [Entitic vol]on 02-18-2024 Platelet mean volume (Bld) [Entitic vol] 10.1 fL 9.5-13.5 [facility] Platelets Auto (Bld) [#/Vol] on 02-18-2024 Platelets (Bld) [#/Vol] 255 10 3/uL 150-450 [facility] RBC Auto (Bld) [#/Vol]on RBC (Bld) [#/Vol] 3.52 10 6/uL 4.20-5.40 [facility] Serum or plasma anion gap de terminationon 02-18-2024 Anion gap [Moles/Vol] 11.7 mmol/L [facility] Basophils Auto (Bld) [#/Vol] on 02-02-2024 Basophils (Bld) [#/Vol] 0.1 10 3/uL 0.0-0.1 [facility] Basophils/100 WBC Auto (Bld) on 02-02-2024 Basophils/100 WBC (Bld) 1.1 % 0.2-2.0 [facility] Cholesterol in LDL Calc [Mas s/Vol]on 02-02-2024 Cholesterol in LDL [Mass/Vol] 113.6 mg/dL [facility] Comment on above: <100 mg/dl [id number] 0-129 mg/dl NEAR OR ABOVE [id number] mg/dl BORDERLINE [id number] mg/dl HIGH>190 mg/dl VERY HIGH Cholesterol in VLDL Calc [Ma ss/Vol]on 02-02-2024 Cholesterol in VLDL [Mass/Vol] 10.4 mg/dL [facility] Eosinophils/100 WBC Auto (Bl d)on 02-02-2024 Eosinophils/100 WBC (Bld) 2.3 % 0.9-7.0 [facility] Erythrocyte distribution wid th Auto (RBC) [Ratio]on 02-02-2024 Erythrocyte distribution width (RBC) [Ratio] 13.1 % 11.0-15.0 [facility] Estimated glomerular filtrat ion rate (GFR) non- Americanon 02-02-2024 GFR/1.73 sq M.predicted among non-blacks MDRD (S/P/Bld) [Vol rate/Area] 34 mL/min/{1.73_m2} >=60 [facility] Globulin Calc (S) [Mass/Vol] on 02-02-2024 Globulin (S) [Mass/Vol] 3.0 g/dL [facility] Hematocrit Auto (Bld) [Volum e fraction]on 02-02-2024 Hematocrit (Bld) [Volume fraction] 34.7 % 36.0-48.0 [facility] Hemoglobin [Mass/volume] in Bloodon 02-02-2024 Hemoglobin (Bld) [Mass/Vol] 10.9 g/dL 12.0-16.0 [facility] Laboratory - Chemistry and C hemistry - challengeon 02-02-2024 Albumin [Mass/Vol] 3.4 g/dL 3.4-5.0 [facility] ALP [Catalytic activity/Vol] 52 U/L 46-116 [facility] ALT [Catalytic activity/Vol] 13 U/L 14-59 [facility] AST [Catalytic activity/Vol] 14 U/L 15-37 [facility] Bilirubin [Mass/Vol] 0.3 mg/dL 0.2-1.0 [facility] Calcium [Mass/Vol] 9.3 mg/dL 8.5-10.1 [facility] Chloride [Moles/Vol] 109 mmol/L 98-107 [facility] Cholesterol [Mass/Vol] 169 mg/dL <=200 [facility] Cholesterol in HDL [Mass/Vol] 45 mg/dL 40-60 [facility] Comment on above: > or =60 mg/dl - LOW CARDIOVASCULAR RISK<40 mg/dl - HIGH CARDIOVASCULAR RISK CO2 [Moles/Vol] 29.8 mmol/L 21.0-32.0 [facility] Creatinine [Mass/Vol] 1.47 mg/dL 0.55-1.02 [facility] GFR/1.73 sq M.predicted MDRD (S/P/Bld) [Vol rate/Area] 41 mL/min/{1.73_m2} >=60 [facility] Glucose [Mass/Vol] 104 mg/dL 74-106 [facility] Potassium [Moles/Vol] 4.9 mmol/L 3.5-5.1 [facility] Protein [Mass/Vol] 6.4 g/dL 6.4-8.2 [facility] Sodium [Moles/Vol] 147 mmol/L 136-145 [facility] Triglyceride [Mass/Vol] 52 mg/dL <=150 [facility] TSH Qn 3.613 m[IU]/L 0.358-3.740 [facility] Urea nitrogen [Mass/Vol] 24.0 mg/dL 7.0-18.0 [facility] Urea nitrogen/Creatinine [Mass ratio] 16.3 mg/mg [facility] Laboratory - Hematology and Cell countson 02-02-2024 Immature granulocytes/100 WBC (Bld) 0.4 % 0.0-0.5 [facility] Leukocytes [#/volume] correc miguel for nucleated erythrocytes in Blood by Automated counon 02-02-2024 WBC corrected for nucl RBC Auto (Bld) [#/Vol] 5.6 10 3/uL 4.0-11.0 [facility] Lymphocytes Auto (Bld) [#/Vo l]on 02-02-2024 Lymphocytes (Bld) [#/Vol] 1.1 10 3/uL 1.2-3.8 [facility] Lymphocytes/100 WBC Auto (Bl d)on 02-02-2024 Lymphocytes/100 WBC (Bld) 20.2 % 20.5-60.0 [facility] MCH Auto (RBC) [Entitic mass ]on 02-02-2024 MCH (RBC) [Entitic mass] 29.8 pg 26.7-34.0 [facility] MCHC Auto (RBC) [Mass/Vol]on 02-02-2024 MCHC (RBC) [Mass/Vol] 31.4 g/dL 29.9-35.2 [facility] MCV Auto (RBC) [Entitic vol] on 02-02-2024 MCV (RBC) [Entitic vol] 94.8 fL 81.0-99.0 [facility] Monocytes Auto (Bld) [#/Vol] on 02-02-2024 Monocytes (Bld) [#/Vol] 0.7 10 3/uL 0.3-0.8 [facility] Monocytes/100 WBC Auto (Bld) on 02-02-2024 Monocytes/100 WBC (Bld) 11.7 % 1.7-12.0 [facility] Neutrophils Auto (Bld) [#/Vo l]on 02-02-2024 Neutrophils (Bld) [#/Vol] 3.6 10 3/uL 1.4-6.5 [facility] Neutrophils/100 WBC Auto (Bl d)on 02-02-2024 Neutrophils/100 WBC (Bld) 64.3 % 43.0-75.0 [facility] No Panel Informationon 02-01 Eosinophils # (Auto) 0.1 10 3/uL 0.0-0.7 [facility] Immature Granulocyte # (Auto) 0.02 10 3/uL 0.00-0.03 [facility] Platelet mean volume Auto (B ld) [Entitic vol]on 02-02-2024 Platelet mean volume (Bld) [Entitic vol] 10.6 fL 9.5-13.5 [facility] Platelets Auto (Bld) [#/Vol] on 02-02-2024 Platelets (Bld) [#/Vol] 253 10 3/uL 150-450 [facility] RBC Auto (Bld) [#/Vol]on RBC (Bld) [#/Vol] 3.66 10 6/uL 4.20-5.40 [facility] Serum or plasma albumin/glob ulin mass ratioon 02-02-2024 Albumin/Globulin [Mass ratio] 1.1 {ratio} [facility] Serum or plasma anion gap de terminationon 02-02-2024 Anion gap [Moles/Vol] 13.1 [facility] Serum or plasma total choles terol/high density lipoprotein (HDL) cholesterol mass anastasia 02-02-2024 Cholesterol.total/Cho lesterol in HDL [Mass ratio] 3.8 {ratio} [facility] Comment on above: 3.3 - 4.4 LOW RISK4. 4 - 7.1 AVERAGE RISK7.1 - 11.0 MODERATE RISK>11.0 HIGH RISK Basic metabolic 2000 panelon 11-05-2023 Anion gap [Moles/Vol] 9 mmol/L Normal 9-18 [facility] Comment on above: Order Comment: Speci men Type: BLOOD SPECIMEN Ordering Facility: [facility] Address: [address] [address] Performed By: #### 5 7021-8 #### [facility] CLIA [id number] [address] [place] [address] Calcium [Mass/Vol] 9.6 mg/dL Normal 8.5-10.2 [facility] Comment on above: Order Comment: Speci men Type: BLOOD SPECIMEN Ordering Facility: [facility] Address: [address] [address] Performed By: #### 5 7021-8 #### [facility] CLIA [id number] [address] [place] [address] Chloride [Moles/Vol] 103 mmol/L Normal 97-105 [facility] Comment on above: Order Comment: Speci men Type: BLOOD SPECIMEN Ordering Facility: [facility] Address: [address] [address] Performed By: #### 5 7021-8 #### [facility] CLIA [id number] [address] [place] [address] CO2 [Moles/Vol] 29 mmol/L Normal 22-30 [facility] Comment on above: Order Comment: Speci men Type: BLOOD SPECIMEN Ordering Facility: [facility] Address: [address] [address] Performed By: #### 5 7021-8 #### [facility] CLIA [id number] [address] [place] [address] Creatinine [Mass/Vol] 1.48 mg/dL High 0.58-0.96 [facility] Comment on above: Order Comment: Preet patino Type: BLOOD SPECIMEN Ordering Facility: [facility] Address: [address] [id number] Performed By: #### 5 7021-8 #### [facility] CLIA [id number] [address] [place] [address] Creatinine and Glomerular filtration rate.predicted panel (S/P/Bld) 35 mL/min/1.73m??? Low >=60 [facility] Comment on above: Order Comment: Preet patino Type: BLOOD SPECIMEN Ordering Facility: [facility] Address: [address] [address] Result Comment: Shoshana mated Glomerular Filtration Rate [...] GFR. Performed By: #### 5 7021-8 #### [facility] CLIA [id number] [address] [place] [address] Glucose [Mass/Vol] 138 mg/dL High 74-99 [facility] Comment on above: Order Comment: Preet patino Type: BLOOD SPECIMEN Ordering Facility: [facility] Address: [address] [address] Result Comment: The [place] [employer] (ADA) provides guidance for cutoff [...] Standards of Medical Care in Diabetes 2016, [place] [employer]. Diabetes Care. 2016.39(Suppl 1). Performed By: #### 5 7021-8 #### [facility] CLIA [id number] [address] [place], [place] [address] Potassium [Moles/Vol] 5.0 mmol/L Normal 3.7-5.1 [facility] Comment on above: Order Comment: Speci men Type: BLOOD SPECIMEN Ordering Facility: [facility] Address: [address] [address] Performed By: #### 5 7021-8 #### [facility] CLIA [id number] [address] [place], [place] [address] Sodium [Moles/Vol] 141 mmol/L Normal 136-144 [facility] Comment on above: Order Comment: Speci men Type: BLOOD SPECIMEN Ordering Facility: [facility] Address: [address] [address] Performed By: #### 5 7021-8 #### [facility] CLIA [id number] [address] [place], [place] [address] Urea nitrogen [Mass/Vol] 25 mg/dL High 7-21 [facility] Comment on above: Order Comment: Speci men Type: BLOOD SPECIMEN Ordering Facility: [facility] Address: [address] [address] Performed By: #### 5 7021-8 #### [facility] CLIA [id number] [address] [place], [place] [address] CBC W Auto Differential pane l (Bld)on 11-05-2023 Basophils (Bld) [#/Vol] 0.06 10*3/uL Normal <0.11 [facility] Comment on above: Order Comment: Speci men Type: BLOOD SPECIMEN Ordering Facility: [facility] Address: [address] [place] [address] Performed By: #### K LFRS #### [facility] CLIA [id number] [address] [facility] [place] [address] [place] Basophils/100 WBC (Bld) 0.9 % Normal [facility] Comment on above: Order Comment: Speci men Type: BLOOD SPECIMEN Ordering Facility: [facility] Address: [address] [place] [address] Performed By: #### K LFRS #### [facility] CLIA [id number] [address] [place] [address] [place] Differential cell count method Nom (Bld) Auto Normal [facility] Comment on above: Order Comment: Speci men Type: BLOOD SPECIMEN Ordering Facility: [facility] Address: [address] [place] [address] Performed By: #### K LFRS #### [facility] CLIA [id number] [address] [place] [address] [place] Eosinophils (Bld) [#/Vol] 0.10 10*3/uL Normal <0.46 [facility] Comment on above: Order Comment: Speci men Type: BLOOD SPECIMEN Ordering Facility: [facility] Address: [address] [place] [address] Performed By: #### K LFRS #### [facility] CLIA [id number] [address] [place] [address] [place] Eosinophils/100 WBC (Bld) 1.4 % Normal [facility] Comment on above: Order Comment: Speci men Type: BLOOD SPECIMEN Ordering Facility: [facility] Address: [address] [place] [address] Performed By: #### K LFRS #### [facility] CLIA [id number] [address] [place] [address] [place] Erythrocyte distribution width (RBC) [Ratio] 14.1 % Normal 11.5-15.0 [facility] Comment on above: Order Comment: Speci men Type: BLOOD SPECIMEN Ordering Facility: [facility] Address: [address] [place] [address] Performed By: #### K LFRS #### [facility] CLIA [id number] [address] [place] [address] [place] Hematocrit (Bld) [Volume fraction] 31.7 % Low 36.0-46.0 [facility] Comment on above: Order Comment: Speci men Type: BLOOD SPECIMEN Ordering Facility: [facility] Address: [address] [place] [address] Performed By: #### K LFRS #### [facility] CLIA [id number] [address] [place] [address] [place] Hemoglobin (Bld) [Mass/Vol] 10.4 g/dL Low 11.5-15.5 [facility] Comment on above: Order Comment: Speci men Type: BLOOD SPECIMEN Ordering Facility: [facility] Address: [address] [place] [address] Performed By: #### K LFRS #### [facility] CLIA [id number] [address] [place] [address] [place] Immature granulocytes (Bld) [#/Vol] 0.04 10*3/uL Normal <0.10 [facility] Comment on above: Order Comment: Speci men Type: BLOOD SPECIMEN Ordering Facility: [facility] Address: [address] [place] [address] Performed By: #### K LFRS #### [facility] CLIA [id number] [address] [place] [address] [place] Immature granulocytes/100 WBC (Bld) 0.6 % Normal [facility] Comment on above: Order Comment: Speci men Type: BLOOD SPECIMEN Ordering Facility: [facility] Address: [address] [place] [address] Performed By: #### K LFRS #### [facility] CLIA [id number] [address] [place] [address] [place] Lymphocytes (Bld) [#/Vol] 0.89 10*3/uL Low 1.00-4.00 [facility] Comment on above: Order Comment: Speci men Type: BLOOD SPECIMEN Ordering Facility: [facility] Address: [address] [place] [address] Performed By: #### K LFRS #### [facility] CLIA [id number] [address] [place] [address] [place] Lymphocytes/100 WBC (Bld) 12.8 % Normal [facility] Comment on above: Order Comment: Speci men Type: BLOOD SPECIMEN Ordering Facility: [facility] Address: [address] [place] [address] Performed By: #### K LFRS #### [facility] CLIA [id number] [address] [place] [address] [place] MCH (RBC) [Entitic mass] 29.3 pg Normal 26.0-34.0 [facility] Comment on above: Order Comment: Speci men Type: BLOOD SPECIMEN Ordering Facility: [facility] Address: [address] [place] [address] Performed By: #### K LFRS #### [facility] CLIA [id number] [address] [place] [address] [place] MCHC (RBC) [Mass/Vol] 32.8 g/dL Normal 30.5-36.0 [facility] Comment on above: Order Comment: Speci men Type: BLOOD SPECIMEN Ordering Facility: [facility] Address: [address] [place] [address] Performed By: #### K LFRS #### [facility] CLIA [id number] [address] [place] [address] [place] MCV (RBC) [Entitic vol] 89.3 fL Normal 80.0-100.0 [facility] Comment on above: Order Comment: Speci men Type: BLOOD SPECIMEN Ordering Facility: [facility] Address: [address] [place] [address] Performed By: #### K LFRS #### [facility] CLIA [id number] [address] [place] [address] [place] Monocytes (Bld) [#/Vol] 0.69 10*3/uL Normal <0.87 [facility] Comment on above: Order Comment: Speci men Type: BLOOD SPECIMEN Ordering Facility: [facility] Address: [address] [place] [address] Performed By: #### K LFRS #### [facility] CLIA [id number] [address] [place] [address] [place] Monocytes/100 WBC (Bld) 9.9 % Normal [facility] Comment on above: Order Comment: Speci men Type: BLOOD SPECIMEN Ordering Facility: [facility] Address: [address] [place] [address] Performed By: #### K LFRS #### [facility] CLIA [id number] [address] [place] [address] [place] Neutrophils (Bld) [#/Vol] 5.16 10*3/uL Normal 1.45-7.50 [facility] Comment on above: Order Comment: Speci men Type: BLOOD SPECIMEN Ordering Facility: [facility] Address: [address] [place] [address] Performed By: #### K LFRS #### [facility] CLIA [id number] [address] [place] [address] [place] Neutrophils/100 WBC (Bld) 74.4 % Normal [facility] Comment on above: Order Comment: Speci men Type: BLOOD SPECIMEN Ordering Facility: [facility] Address: [address] [place] [address] Performed By: #### K LFRS #### [facility] CLIA [id number] [address] [place] [address] [place] Nucleated RBC (Bld) [#/Vol] 10*3/uL Normal <0.01 [facility] Comment on above: Order Comment: Speci men Type: BLOOD SPECIMEN Ordering Facility: [facility] Address: [address] [place] [address] Performed By: #### K LFRS #### [facility] CLIA [id number] [address] [place] [address] [place] Nucleated RBC/100 WBC (Bld) [Ratio] 0.0 /100 WBC Normal [facility] Comment on above: Order Comment: Speci men Type: BLOOD SPECIMEN Ordering Facility: [facility] Address: [address] [place] [address] Performed By: #### K LFRS #### [facility] CLIA [id number] [address] [place] [address] [place] Platelet mean volume (Bld) [Entitic vol] 9.9 fL Normal 9.0-12.7 [facility] Comment on above: Order Comment: Speci men Type: BLOOD SPECIMEN Ordering Facility: [facility] Address: [address] [place] [address] Performed By: #### K LFRS #### [facility] CLIA [id number] [address] [place] [address] [place] Platelets (Bld) [#/Vol] 262 10*3/uL Normal 150-400 [facility] Comment on above: Order Comment: Speci men Type: BLOOD SPECIMEN Ordering Facility: [facility] Address: [address] [place] [address] Performed By: #### K LFRS #### [facility] CLIA [id number] [address] [place] [address] [place] RBC (Bld) [#/Vol] 3.55 10*6/uL Low 3.90-5.20 [facility] Comment on above: Order Comment: Speci men Type: BLOOD SPECIMEN Ordering Facility: [facility] Address: [address] [place] [address] Performed By: #### K LFRS #### [facility] CLIA [id number] [address] [place] [address] [place] WBC (Bld) [#/Vol] 6.94 10*3/uL Normal 3.70-11.00 [facility] Comment on above: Order Comment: Speci men Type: BLOOD SPECIMEN Ordering Facility: [facility] Address: [address] [place] [address] Performed By: #### K LFRS #### [facility] CLIA [id number] [address] [facility] [id number] [place] CNOVSPon 11-05-2023 CNOVSP Visit (SP) Office (HEMASA) ----- LASHAUN JOAQUIN ([id number]) 1940 F Date Time Provider Department 11/05/23 1:30 PM PAOLO CASILLAS During your visit today, we recorded the following information about you: Temperature Pulse Respiration Blood pressure 97.5 degrees 57/minute 16/minute 111/40 Weight Height 87.6 kg 1.664 m Paolo Casillas APRN.FILLER OPERATOR 11/07/2023 12:22 PM Signed PATIENT NAME: Lashaun Joaquin DATE: 11/05/2023 PRIMARY CARE PHYSICIAN: Dr. Nathan Hathaway OTHER PHYSICIANS: Dr. Perry Portions of this encounter note have been [...] 166.4 c (more content not included)... Normal [facility] IMMUNOFIXATION SCREEN, SERUM on 11-05-2023 INTERPRETATION (MPA) [...] monoclonal gammopathy. Clinical correlation is necessary. Normal [facility] Comment on above: Order Comment: Preet patino Type: BLOOD SPECIMEN Ordering Facility: [facility] Address: [address] [place] [address] Performed By: #### 5 7021-8 #### [facility] CLIA [id number] [address] [place] [address] MPA RESULT A poorly defined reg ion of restricted mobility is present that may represent an M protein. Abnormal No M protein is identified. [facility] Comment on above: Order Comment: Preet patino Type: BLOOD SPECIMEN Ordering Facility: [facility] Address: [address] [place] [address] Performed By: #### 5 7021-8 #### [facility] CLIA [id number] [address] [place] [address] STAFF REVIEW ([facility]) Reviewed by Milka Bahena MD [facility] Comment on above: Order Comment: Speci men Type: BLOOD SPECIMEN Ordering Facility: [facility] Address: [address] [place] [address] Performed By: #### 5 7021-8 #### [facility] CLIA [id number] [address] [place] [address] IMMUNOGLOBULINS GAMon 2023 IgA [Mass/Vol] 72 mg/dL Normal 70-400 [facility] Comment on above: Order Comment: Speci men Type: BLOOD SPECIMEN Ordering Facility: [facility] Address: [address] [place] [address] Performed By: #### 5 7021-8 #### [facility] CLIA [id number] [address] [place] [address]36 IgG [Mass/Vol] 525 mg/dL Low 700-1600 [facility] Comment on above: Order Comment: Speci men Type: BLOOD SPECIMEN Ordering Facility: [facility] Address: [address] [place] [address] Performed By: #### 5 7021-8 #### [facility] CLIA [id number] [address] [place] [address] IgM [Mass/Vol] 340 mg/dL High 40-230 [facility] Comment on above: Order Comment: Speci men Type: BLOOD SPECIMEN Ordering Facility: [facility] Address: [address] [place] [address] Performed By: #### 5 7021-8 #### [facility] CLIA [id number] [address] [place] [address] KAPPA/BOWLES,FREE,SERon 2023 Immunoglobulin light chains.kappa.free (S) [Mass/Vol] 106.4 mg/L High 3.3-19.4 [facility] Comment on above: Order Comment: Speci carey Type: BLOOD SPECIMEN Ordering Facility: [facility] Address: [address] [place] [address] Result Comment: Rare ly, increased serum free light chains levels may not be detected or accurately quantified due to prozone phenomenon or in high viscosity samples using this immunoturbidimetric assay. Correlation with other laboratory results and clinical findings is recommended. The [place] Free Light Chain was performed using the Binding Site Optilite immunoturbidimetric method. Result obtained with different assay methods or kits cannot be used interchangeably. Performed By: #### K LFRS #### [facility] CLIA [id number] [address] [place] [address] [place] Immunoglobulin light chains.kappa/Immunogl obulin light chains.lambda (S) [Mass ratio] 5.29 High 0.26-1.65 [facility] Comment on above: Order Comment: [facility] Type: BLOOD SPECIMEN Ordering Facility: [facility] Address: [address] [place] [address] Performed By: #### K LFRS #### [facility] CLIA [id number] [address] [place] [address] [place] Immunoglobulin light chains.lambda.free [Mass/Vol] 20.1 mg/L Normal 5.7-26.3 [facility] Comment on above: Order Comment: [facility] Type: BLOOD SPECIMEN Ordering Facility: [facility] Address: [address] [place] [address] Result Comment: Rare ly, increased serum free [...] interchangeably. Performed By: #### K LFRS #### [facility] CLIA [id number] [address] [place] [address] [place] PROTEIN ELECTROPHORESIS SERU M WITH BRANDON (P)on 11-05-2023 Albumin [Mass/Vol] 3.79 g/dL Normal 3.43-5.41 [facility] Comment on above: Order Comment: Speci men Type: BLOOD SPECIMEN Ordering Facility: [facility] Address: [address] [place] [address] Performed By: #### L [id number] #### [facility] CLIA [id number] [address] [place] [address] [place] Alpha 1 globulin Elph [Mass/Vol] 0.28 g/dL Normal 0.18-0.43 [facility] Comment on above: Order Comment: Speci men Type: BLOOD SPECIMEN Ordering Facility: [facility] Address: [address] [place] [address] Performed By: #### L [id number] #### [facility] CLIA [id number] [address] [place] [address] [place] Alpha 2 globulin Elph [Mass/Vol] 0.72 g/dL Normal 0.42-0.98 [facility] Comment on above: Order Comment: Speci men Type: BLOOD SPECIMEN Ordering Facility: [facility] Address: [address] [place] [address] Performed By: #### L [id number] #### [facility] CLIA [id number] [address] [place] [address] [place] Beta globulin Elph [Mass/Vol] 0.52 g/dL Low 0.61-1.17 [facility] Comment on above: Order Comment: Speci men Type: BLOOD SPECIMEN Ordering Facility: [facility] Address: [address] [place] [address] Performed By: #### L [id number] #### [facility] CLIA [id number] [address] [place] [address] [place] COMMENT (SERUM PROT ELECTRO) A reflex test for Monoclonal Protein analysis (immunofixation) has been ordered. Normal [facility] Comment on above: Order Comment: Speci carey Type: BLOOD SPECIMEN Ordering Facility: [facility] Address: [address] [place] [address] Performed By: #### L [id number] #### [facility] CLIA [id number] [facility] [place] [address] [place] Gamma globulin Elph [Mass/Vol] 0.49 g/dL Low 0.53-1.51 [facility] Comment on above: Order Comment: Speci men Type: BLOOD SPECIMEN Ordering Facility: [facility] Address: [address] [place] [address] Performed By: #### L [id number] #### [facility] CLIA [id number] [address] [place] [address] [place] [facility] INTERPRETATION COMMENT FOR PROTEIN ELECTROPHORESIS Normal [facility] Comment on above: Order Comment: Preet patino Type: BLOOD SPECIMEN Ordering Facility: [facility] Address: [address] [place] [address] Result Comment: The atypical region is relatively poorly defined and may represent an unusual presentation of polyclonal immunoglobulins, but cannot rule out the presence of a low level M protein. If clinically indicated, monoclonal protein analysis and serum free light chain analysis are suggested to evaluate further for monoclonal gammopathy. Performed By: #### L [id number] #### [facility] CLIA [id number] [address] [place] [address] [place] M-PROTEIN LOCATION Normal [facility] Comment on above: Order Comment: Speci carey Type: BLOOD SPECIMEN Ordering Facility: [facility] Address: [address] [place] [address] Result Comment: Not Applicable. Performed By: #### L [id number] #### [facility] CLIA [id number] [address] [place] [address] [place] Protein Fractions [Interp] An atypical region of restricted mobility is identified on protein electrophoresis. Abnormal No definitive M protein is identified on protein electrophor esis. [facility] Comment on above: Order Comment: Speci men Type: BLOOD SPECIMEN Ordering Facility: [facility] Address: [address] [place] [address] Performed By: #### L [id number] #### [facility] CLIA [id number] [address] [place] [address] [place] Protein.monoclonal Elph [Mass/Vol] 0.00 g/dL Normal <=0.00 [facility] Comment on above: Order Comment: Speci men Type: BLOOD SPECIMEN Ordering Facility: [facility] Address: [address] [place] [address] Performed By: #### L [id number] #### [facility] CLIA [id number] [address] [place] [address] [place] SPE STAFF REVIEW Reviewed by Milka Bahena MD [facility] Comment on above: Order Comment: Speci men Type: BLOOD SPECIMEN Ordering Facility: [facility] Address: [address] [place] [address] Performed By: #### L [id number] #### [facility] CLIA [id number] [address] [place] [address] [place] Prot SerPl-mCncon 11-05-2023 Protein [Mass/Vol] 5.8 g/dL Low 6.3-8.0 [facility] Comment on above: Order Comment: Speci men Type: BLOOD SPECIMEN Ordering Facility: [facility] Address: [address] [place] [id number] Performed By: #### 5 7021-8 #### [facility] CLIA [id number] [address] [place] [address] Kyung 08-31-2023 GABO Telephone (HEMTSA) ----- LASHAUN JOAQUIN ([id number]) 1940 F Date Time Provider Department 08/31/23 [...] Fully Assessed Reason for Visit: Lab Orders [168] Primary Visit Diagnosis:Abnormal SPEP [R77.8] Order(s):CBC + DIFF [SQCBCDIF] Order #: [id number] FUTURE BASIC METABOLIC PNL [SQBMP] Order #: [id number] FUTURE PROT ELECT SERUM WITH BRANDON AND INTERP [SQSEPGRX] Order #: [id number] FUTURE MONOCLONAL PROTEIN, SERUM (BLOOD) [SQSERMPA] Order #: [id number] FUTURE Prescriptions as of 08/31/2023 - carvedilol [...] Status:Closed by LUIS MCKENZIE on 08/31/23 Normal [facility] UA RANDOM W/MICROSCOPICon Clarity (U) CLEAR CLEAR [employer] Other Color (U) DK YELLOW YELLOW [employer] Other Ketones Ql (U) Negative NEGATIVE mg/dL [employer] Other Leukocyte esterase Test strip Ql (U) Negative NEGATIVE [employer] Other pH (U) 6.5 [pH] 5.0-9.0 [employer] Other UA RANDOM W/MICROSCOPIC 0-2 #/HPF Abnormal NONE SEEN #/HPF [employer] Other UA RANDOM W/MICROSCOPIC 5-10 #/HPF Abnormal 0-2 #/HPF [employer] Other UA RANDOM W/MICROSCOPIC see note [employer] Other UA RANDOM W/MICROSCOPIC 1.010 1.005-1.025 [employer] Other UA RANDOM W/MICROSCOPIC Negative NEGATIVE [employer] Other UA RANDOM W/MICROSCOPIC LARGE Abnormal NEGATIVE [employer] Other UA RANDOM W/MICROSCOPIC Positive Abnormal NEGATIVE [employer] Other UA RANDOM W/MICROSCOPIC 1.0 EU/dL 0.2-1.0 EU/dL [employer] Other UA RANDOM W/MICROSCOPIC TRACE #/HPF Abnormal NONE SEEN #/HPF [employer] Other UA RANDOM W/MICROSCOPIC NONE SEEN NONE SEEN [employer] Other UA RANDOM W/MICROSCOPIC RARE #/LPF NONE/RARE #/LPF [employer] Other UA RANDOM W/MICROSCOPIC None Seen #/HPF None Seen #/HPF [employer] Other UA RANDOM W/MICROSCOPIC NONE SEEN #/LPF NONE SEEN #/LPF [employer] Other Urinalysis - DIPSTICKon 06-29 Appearance (U) clear [employer] Other Bilirubin Ql (U) Negative [employer] Other Color (U) light yellow [employer] Other Glucose Ql (U) Negative [employer] Other Hemoglobin Ql (U) +++ [employer] Other Ketones Ql (U) Negative [employer] Other Leukocyte esterase Test strip Ql (U) Negative [employer] Other Nitrite Ql (U) Negative [employer] Other pH (U) 0.2 [pH] [employer] Other Protein Ql (U) trace [employer] Other Specific gravity (U) [Rel density] 1.005 [employer] Other Urobilinogen (U) [Mass/Vol] off chart [employer] Other Urinalysis - DIPSTICK [employer] Other DANIELADena 06-06-2023 CNPN Telephone (HEMTSA) ----- LASHAUN JOAQUIN ([id number]) 1940 F Date Time Provider Department 06/06/23 [...] 06/06/2023 2:12 PM Signed Pt aware of MARBIN message and agrees to POC. She states she feels good and will see us back in August. Juan Manzanares RN Allergies As of Date: 06/06/2023 Noted [...] Status:Closed by JUAN MANZANARES on 06/06/23 Normal [facility] ESR Westergren method (Bld) [Velocity]on 06-05-2023 ESR (Bld) [Velocity] 119 mm/h High 0 - 20 mm/hr [facility] FERRITIN BLDon 06-05-2023 Ferritin [Mass/Vol] 160.0 ng/mL 14.7 - 205.1 ng/mL [facility] Iron and Iron binding capaci ty panelon 06-05-2023 Iron [Mass/Vol] 45 ug/dL 41 - 186 ug/dL [facility] Iron binding capacity [Mass/Vol] 252 ug/dL 232 - 386 ug/dL [facility] Iron/TIBC [Molar ratio] 17.9 % 15.0 - 57.0 % [facility] Basic metabolic 2000 panelon 06-04-2023 Anion gap [Moles/Vol] 10 mmol/L Normal 9-18 [facility] Comment on above: Order Comment: Speci men Type: BLOOD SPECIMEN Ordering Facility: [facility] Address: [address] [place] [address] Performed By: #### K LFRS #### [facility] CLIA [id number] [address] [place] [address] [place] Calcium [Mass/Vol] 9.2 mg/dL Normal 8.5-10.2 [facility] Comment on above: Order Comment: Speci men Type: BLOOD SPECIMEN Ordering Facility: [facility] Address: [address] [place] [address] Performed By: #### K LFRS #### [facility] CLIA [id number] [address] [place] [address] [place] Chloride [Moles/Vol] 106 mmol/L High 97-105 [facility] Comment on above: Order Comment: Speci men Type: BLOOD SPECIMEN Ordering Facility: [facility] Address: [address] [place] [address] Performed By: #### K LFRS #### [facility] CLIA [id number] [address] [place] [address] [place] CO2 [Moles/Vol] 27 mmol/L Normal 22-30 [facility] Comment on above: Order Comment: Speci men Type: BLOOD SPECIMEN Ordering Facility: [facility] Address: [address] [place] [address] Performed By: #### K LFRS #### [facility] CLIA [id number] [address] [place] [address] [place] Creatinine [Mass/Vol] 1.09 mg/dL High 0.58-0.96 [facility] Comment on above: Order Comment: Speci men Type: BLOOD SPECIMEN Ordering Facility: [facility] Address: [address] [place] [address] Performed By: #### K LFRS #### [facility] CLIA [id number] [facility] [place] [address] [place] ESTIMATED GLOMERULAR FILTRATION RATE 51 mL/min/1.73m??? Low >=60 [facility] Comment on above: Order Comment: Preet patino Type: BLOOD SPECIMEN Ordering Facility: [facility] Address: [address] [place] [address] Result Comment: Shoshana mated Glomerular Filtration Rate [...] GFR. Performed By: #### K LFRS #### [facility] CLIA [id number] [address] [place] [address] [place] Glucose [Mass/Vol] 116 mg/dL High 74-99 [facility] Comment on above: Order Comment: Preet patino Type: BLOOD SPECIMEN Ordering Facility: [facility] Address: [address] [place] [address] Result Comment: The [place] Diabetes Association (ADA) provides guidance for cutoff [...] Standards of Medical Care in Diabetes 2016, [place] [employer]. Diabetes Care. 2016.39(Suppl 1). Performed By: #### K LFRS #### [facility] CLIA [id number] [facility] [place] [address] [place] Potassium [Moles/Vol] 4.3 mmol/L Normal 3.7-5.1 [facility] Comment on above: Order Comment: Speci men Type: BLOOD SPECIMEN Ordering Facility: [facility] Address: [address] [place] [address] Performed By: #### K LFRS #### [facility] CLIA [id number] [address] [place] [address] [place] Sodium [Moles/Vol] 143 mmol/L Normal 136-144 [facility] Comment on above: Order Comment: Speci men Type: BLOOD SPECIMEN Ordering Facility: [facility] Address: [address] [place] [address] Performed By: #### K LFRS #### [facility] CLIA [id number] [address] [place] [address] [place] Urea nitrogen [Mass/Vol] 19 mg/dL Normal 7-21 [facility] Comment on above: Order Comment: Speci men Type: BLOOD SPECIMEN Ordering Facility: [facility] Address: [address] [place] [address] Performed By: #### K LFRS #### [facility] CLIA [id number] [address] [place] [address] [place] Anion gap [Moles/Vol] 10 mmol/L 9 - 18 mmol/L [facility] Calcium [Mass/Vol] 9.2 mg/dL 8.5 - 10. 2 mg/dL [facility] Chloride [Moles/Vol] 106 mmol/L High 97 - 10 5 mmol/L [facility] CO2 [Moles/Vol] 27 mmol/L 22 - 30 mmol/L [facility] Creatinine [Mass/Vol] 1.09 mg/dL High 0.58 - 0.96 mg/dL [facility] Estimated Glomerular Filtration Rate 51 mL/min/1.73m Low >=60 mL/min/1.73 m [facility] Glucose [Mass/Vol] 116 mg/dL High 74 - 99 mg/dL [facility] Potassium [Moles/Vol] 4.3 mmol/L 3.7 - 5.1 mmol/L [facility] Sodium [Moles/Vol] 143 mmol/L 136 - 144 mmol/L [facility] Urea nitrogen [Mass/Vol] 19 mg/dL 7 - 21 mg/dL [facility] CBC W Auto Differential pane l (Bld)on 06-04-2023 Basophils (Bld) [#/Vol] 0.04 10*3/uL Normal <0.11 [facility] Comment on above: Order Comment: Speci men Type: BLOOD SPECIMEN Ordering Facility: [facility] Address: [address] [place] [address] Performed By: #### 5 7021-8 #### [facility] CLIA [id number] [address] [place] [address] Basophils/100 WBC (Bld) 0.8 % Normal [facility] Comment on above: Order Comment: Speci men Type: BLOOD SPECIMEN Ordering Facility: [facility] Address: [address] [place] [address] Performed By: #### 5 7021-8 #### [facility] CLIA [id number] [address] [place] [address] Differential cell count method Nom (Bld) Auto Normal [facility] Comment on above: Order Comment: Speci men Type: BLOOD SPECIMEN Ordering Facility: [facility] Address: [address] [place] [address] Performed By: #### 5 7021-8 #### [facility] CLIA [id number] [address] [place] [address] Eosinophils (Bld) [#/Vol] 0.14 10*3/uL Normal <0.46 [facility] Comment on above: Order Comment: Speci men Type: BLOOD SPECIMEN Ordering Facility: [facility] Address: [address] [place] [address] Performed By: #### 5 7021-8 #### [facility] CLIA [id number] [address] [place] [address] Eosinophils/100 WBC (Bld) 2.9 % Normal [facility] Comment on above: Order Comment: Speci men Type: BLOOD SPECIMEN Ordering Facility: [facility] Address: [address] [place] [place] [address] Performed By: #### 5 7021-8 #### [facility] CLIA [id number] [address] [place] [address] Erythrocyte distribution width (RBC) [Ratio] 13.6 % Normal 11.5-15.0 [facility] Comment on above: Order Comment: Speci men Type: BLOOD SPECIMEN Ordering Facility: [facility] Address: [address] [place] [place] [address] Performed By: #### 5 7021-8 #### [facility] CLIA [id number] [address] [place] [address] Hematocrit (Bld) [Volume fraction] 28.8 % Low 36.0-46.0 [facility] Comment on above: Order Comment: Speci men Type: BLOOD SPECIMEN Ordering Facility: [facility] Address: [address] [place] [place] [address] Performed By: #### 5 7021-8 #### [facility] CLIA [id number] [address] [place] [address] Hemoglobin (Bld) [Mass/Vol] 9.2 g/dL Low 11.5-15.5 [facility] Comment on above: Order Comment: Speci men Type: BLOOD SPECIMEN Ordering Facility: [facility] Address: [address] [place] [address] Performed By: #### 5 7021-8 #### [facility] CLIA [id number] [address] [place] [address] Immature granulocytes (Bld) [#/Vol] 10*3/uL Normal <0.10 [facility] Comment on above: Order Comment: Speci men Type: BLOOD SPECIMEN Ordering Facility: [facility] Address: [address] [address] Performed By: #### 5 7021-8 #### [facility] CLIA [id number] [address] [place] [address] 22565 Immature granulocytes/100 WBC (Bld) 0.4 % Normal [facility] Comment on above: Order Comment: Speci men Type: BLOOD SPECIMEN Ordering Facility: [facility] Address: [address] [place] [address] Performed By: #### 5 7021-8 #### [facility] CLIA [id number] [address] [place] [address] 77322 Lymphocytes (Bld) [#/Vol] 0.83 10*3/uL Low 1.00-4.00 [facility] Comment on above: Order Comment: Speci men Type: BLOOD SPECIMEN Ordering Facility: [facility] Address: [address] [place] [address] Performed By: #### 5 7021-8 #### [facility] CLIA [id number] [address] [place] [address] 47750 Lymphocytes/100 WBC (Bld) 17.4 % Normal [facility] Comment on above: Order Comment: Speci men Type: BLOOD SPECIMEN Ordering Facility: [facility] Address: [address] [address] Performed By: #### 5 7021-8 #### [facility] CLIA [id number] [address] [place] [address] 19115 MCH (RBC) [Entitic mass] 29.6 pg Normal 26.0-34.0 [facility] Comment on above: Order Comment: Speci men Type: BLOOD SPECIMEN Ordering Facility: [facility] Address: [address] [address] Performed By: #### 5 7021-8 #### [facility] [place] [id number] [address] [place] [address] 45771 MCHC (RBC) [Mass/Vol] 31.9 g/dL Normal 30.5-36.0 [facility] Comment on above: Order Comment: Speci men Type: BLOOD SPECIMEN Ordering Facility: [facility] Address: [address] [place] [address] Performed By: #### 5 7021-8 #### [facility] CLIA [id number] [address] [place] [address] 11204 MCV (RBC) [Entitic vol] 92.6 fL Normal 80.0-100.0 [facility] Comment on above: Order Comment: Speci men Type: BLOOD SPECIMEN Ordering Facility: [facility] Address: [address] [place] [address] Performed By: #### 5 7021-8 #### [facility] CLIA [id number] [address] [place] [address] 20863 Monocytes (Bld) [#/Vol] 0.40 10*3/uL Normal <0.87 [facility] Comment on above: Order Comment: Speci men Type: BLOOD SPECIMEN Ordering Facility: [facility] Address: [address] [address] Performed By: #### 5 7021-8 #### [facility] CLIA [id number] [address] [place] [address] 36885 Monocytes/100 WBC (Bld) 8.4 % Normal [facility] Comment on above: Order Comment: Speci men Type: BLOOD SPECIMEN Ordering Facility: [facility] Address: [address] [place] [address] Performed By: #### 5 7021-8 #### [facility] CLIA [id number] [address] [place] [address] 89699 Neutrophils (Bld) [#/Vol] 3.35 10*3/uL Normal 1.45-7.50 [facility] Comment on above: Order Comment: Speci men Type: BLOOD SPECIMEN Ordering Facility: [facility] Address: [address] [place], [place] [address] Performed By: #### 5 7021-8 #### [facility] CLIA [id number] [address] [place] [address] 81614 Neutrophils/100 WBC (Bld) 70.1 % Normal [facility] Comment on above: Order Comment: Speci men Type: BLOOD SPECIMEN Ordering Facility: [facility] Address: [address] [address] Performed By: #### 5 7021-8 #### [facility] CLIA [id number] [address] [place] [address] 90015 Nucleated RBC (Bld) [#/Vol] 10*3/uL Normal <0.01 [facility] Comment on above: Order Comment: Speci men Type: BLOOD SPECIMEN Ordering Facility: [facility] Address: [address] [address] Performed By: #### 5 7021-8 #### [facility] CLIA [id number] [address] [place] [address] 21245 Nucleated RBC/100 WBC (Bld) [Ratio] 0.0 /100 WBC Normal [facility] Comment on above: Order Comment: Speci men Type: BLOOD SPECIMEN Ordering Facility: [facility] Address: [address] [address] Performed By: #### 5 7021-8 #### [facility] CLIA [id number] [address] [place] [address] 14019 Platelet mean volume (Bld) [Entitic vol] 10.2 fL Normal 9.0-12.7 [facility] Comment on above: Order Comment: Speci men Type: BLOOD SPECIMEN Ordering Facility: [facility] Address: [address] Performed By: #### 5 7021-8 #### [facility] CLIA [id number] [address] [place] [address] 72847 Platelets (Bld) [#/Vol] 274 10*3/uL Normal 150-400 [facility] Comment on above: Order Comment: Speci men Type: BLOOD SPECIMEN Ordering Facility: [facility] Address: [address] Performed By: #### 5 7021-8 #### [facility] CLIA [id number] [address] [place] [address] 51996 RBC (Bld) [#/Vol] 3.11 10*6/uL Low 3.90-5.20 [facility] Comment on above: Order Comment: Speci men Type: BLOOD SPECIMEN Ordering Facility: [facility] Address: [address] [place] [address] Performed By: #### 5 7021-8 #### [facility] [place] [id number] [address] [place] [address] 13398 WBC (Bld) [#/Vol] 4.78 10*3/uL Normal 3.70-11.00 [facility] Comment on above: Order Comment: Speci men Type: BLOOD SPECIMEN Ordering Facility: [facility] Address: [address] [place] [address] Performed By: #### 5 7021-8 #### [facility] CLIA [id number] [address] [place] [address] 55707 Basophils (Bld) [#/Vol] 0.04 10*3/uL <0.11 k/uL [facility] Basophils/100 WBC (Bld) 0.8 % [facility] Differential cell count method Nom (Bld) Auto [facility] Eosinophils (Bld) [#/Vol] 0.14 10*3/uL <0.46 k/uL [facility] Eosinophils/100 WBC (Bld) 2.9 % [facility] Erythrocyte distribution width (RBC) [Ratio] 13.6 % 11.5 - 15.0 % [facility] Hematocrit (Bld) [Volume fraction] 28.8 % Low 36.0 - 46.0 % [facility] Hemoglobin (Bld) [Mass/Vol] 9.2 g/dL Low 11.5 - 15.5 g/dL [facility] Immature granulocytes (Bld) [#/Vol] <0.10 k/uL [facility] Immature granulocytes/100 WBC (Bld) 0.4 % [facility] Lymphocytes (Bld) [#/Vol] 0.83 10*3/uL Low 1.00 - 4.00 k/uL [facility] Lymphocytes/100 WBC (Bld) 17.4 % [facility] MCH (RBC) [Entitic mass] 29.6 pg 26.0 - 34.0 pg [facility] MCHC (RBC) [Mass/Vol] 31.9 g/dL 30.5 - 36.0 g/dL [facility] MCV (RBC) [Entitic vol] 92.6 fL 80.0 - 100.0 fL [facility] Monocytes (Bld) [#/Vol] 0.40 10*3/uL <0.87 k/uL [facility] Monocytes/100 WBC (Bld) 8.4 % [facility] Neutrophils (Bld) [#/Vol] 3.35 10*3/uL 1.45 - 7.50 k/uL [facility] Neutrophils/100 WBC (Bld) 70.1 % [facility] Nucleated RBC (Bld) [#/Vol] <0.01 k/uL [facility] Nucleated RBC/100 WBC (Bld) [Ratio] 0.0 /100 WBC [facility] Platelet mean volume (Bld) [Entitic vol] 10.2 fL 9.0 - 12.7 fL [facility] Platelets (Bld) [#/Vol] 274 10*3/uL 150 - 400 k/uL [facility] RBC (Bld) [#/Vol] 3.11 10*6/uL Low 3.90 - 5.2 0 m/uL [facility] WBC (Bld) [#/Vol] 4.78 10*3/uL 3.70 - 11.00 k/uL [facility] CNOVSPon 06-04-2023 CNOVS Visit (SP) Office ([place]) ----- LASHAUN JOAQUIN ([id number]) 1940 F Date Time Provider Department 06/04/23 2:00 PM LUIS MCKENZIE During your visit today, we recorded the following information about you: Temperature Pulse Respiration Blood pressure 97.7 degrees 56/minute 18/minute 155/58 Weight 92 kg Luis Mckenzie MD 06/06/2023 6:33 AM Signed PATIENT NAME: Lashaun Joaquin DATE: 06/04/2023 PRIMARY CARE PHYSICIAN: Nathan Hathaway, OTHER PHYSICIANS: Dr. Perry Portions of this encounter note have been [...] shortness of breath and was hospitalized at [facility] and treated for suspected pneumonia. Apparently it was later felt she had heart disease, and cardiac catheterization revealed severe coronary artery disease. She subsequently underwent stent placement at [facility]. Apparently her shortness of breath persisted, and [...] EXAM: B (more content not included)... Normal [facility] ESR Westergren method (Bld) [Velocity]on 06-04-2023 ESR (Bld) [Velocity] 119 mm/h High 0-[address] [facility] Comment on above: Order Comment: Speci men Type: BLOOD SPECIMEN Ordering Facility: [facility] Address: [address] [address] Performed By: #### 2 4323-8 #### [facility] CLIA [id number] [address] [place] [address] 05277 Ferritin SerPl-mCncon 2022 Ferritin [Mass/Vol] 160.0 ng/mL Normal 14.7-205.1 [facility] Comment on above: Order Comment: Speci men Type: BLOOD SPECIMEN Ordering Facility: [facility] Address: [address] [address] Performed By: #### 5 7021-8 #### [facility] CLIA [id number] [address] [place] [address] 39055 Iron and Iron binding capaci ty panelon 06-04-2023 Iron [Mass/Vol] 45 ug/dL Normal 41-186 [facility] Comment on above: Order Comment: Speci men Type: BLOOD SPECIMEN Ordering Facility: [facility] Address: [address] [address] Performed By: #### 2 4323-8 #### [facility] CLIA [id number] [address] [place] [address] 37355 Iron binding capacity [Mass/Vol] 252 ug/dL Normal 232-386 [facility] Comment on above: Order Comment: Speci men Type: BLOOD SPECIMEN Ordering Facility: [facility] Address: [address] [address] Performed By: #### 2 4323-8 #### [facility] CLIA [id number] [address] [place] [address] 97568 Iron/TIBC [Molar ratio] 17.9 % Normal 15.0-57.0 [facility] Comment on above: Order Comment: Speci men Type: BLOOD SPECIMEN Ordering Facility: [facility] Address: [address] [address] Performed By: #### 2 4323-8 #### [facility] CLIA [id number] [address] [place] [address] 17123 RETIC COUNTon 06-04-2023 Reticulocytes (Bld) [#/Vol] 0.66505 10*3/uL 0.018 - 0.100 M/uL [facility] Retics #on 06-04-2023 Reticulocytes (Bld) [#/Vol] 0.61734 10*3/uL Normal 0.018-0.100 [facility] Comment on above: Order Comment: Speci men Type: BLOOD SPECIMEN Ordering Facility: [facility] Address: [address] [place] [address] Performed By: #### 5 7021-8 #### [facility] CLIA [id number] [address] [place] [address] 68728 Reticulocytes (Bld) [#/Vol]o n 06-04-2023 Reticulocytes/100 RBC (Bld) 2.0 % Normal 0.4-2.0 [facility] Comment on above: Order Comment: Speci men Type: BLOOD SPECIMEN Ordering Facility: [facility] Address: [address] [place] [address] Performed By: #### 5 7021-8 #### [facility] CLIA [id number] [address] [place] [address] 52634 Reticulocytes/100 RBC (Bld) 2.0 % 0.4 - 2.0 % [facility] Basic metabolic 2000 panelon 05-28-2023 Anion gap [Moles/Vol] 8 mmol/L Low 9-18 [facility] Comment on above: Order Comment: Speci men Type: BLOOD SPECIMEN Ordering Facility: [facility] Address: [address] [place] [address] Performed By: #### 2 4323-8 #### [facility] CLIA [id number] [address] [place] [address] 97138 Calcium [Mass/Vol] 9.2 mg/dL Normal 8.5-10.2 [facility] Comment on above: Order Comment: Speci men Type: BLOOD SPECIMEN Ordering Facility: [facility] Address: [address] [place] [address] Performed By: #### 2 4323-8 #### [facility] CLIA [id number] [address] [place] [address] 23730 Chloride [Moles/Vol] 104 mmol/L Normal 97-105 [facility] Comment on above: Order Comment: Speci men Type: BLOOD SPECIMEN Ordering Facility: [facility] Address: [address] [place] [address] Performed By: #### 2 4323-8 #### [facility] CLIA [id number] [address] [place] [address] 40783 CO2 [Moles/Vol] 28 mmol/L Normal 22-30 [facility] Comment on above: Order Comment: Speci men Type: BLOOD SPECIMEN Ordering Facility: [facility] Address: [address] [place] [address] Performed By: #### 2 4323-8 #### [facility] CLIA [id number] [address] [place] [address] 22028 Creatinine [Mass/Vol] 1.18 mg/dL High 0.58-0.96 [facility] Comment on above: Order Comment: Speci men Type: BLOOD SPECIMEN Ordering Facility: [facility] Address: [address] [place] [address] Performed By: #### 2 4323-8 #### [facility] CLIA [id number] [address] [place] [address] 28563 ESTIMATED GLOMERULAR FILTRATION RATE 47 mL/min/1.73m??? Low >=60 [facility] Comment on above: Order Comment: Speci men Type: BLOOD SPECIMEN Ordering Facility: [facility] Address: [address] [place] [address] Result Comment: Shoshana mated Glomerular Filtration Rate [...] GFR. Performed By: #### 2 4323-8 #### [facility] CLIA [id number] [address] [place] [address] 01452 Glucose [Mass/Vol] 127 mg/dL High 74-99 [facility] Comment on above: Order Comment: Preet patino Type: BLOOD SPECIMEN Ordering Facility: [facility] Address: [address] [place] [address] Result Comment: The [place] [employer] (ADA) provides guidance for cutoff [...] Standards of Medical Care in Diabetes 2016, [place] [employer]. Diabetes Care. 2016.39(Suppl 1). Performed By: #### 2 4323-8 #### [facility] CLIA [id number] [address] [place] [address] 05281 Potassium [Moles/Vol] 4.4 mmol/L Normal 3.7-5.1 [facility] Comment on above: Order Comment: Preet patino Type: BLOOD SPECIMEN Ordering Facility: [facility] Address: [address] [address] Performed By: #### 2 4323-8 #### [facility] CLIA [id number] [address] [place] [address] 78102 Sodium [Moles/Vol] 140 mmol/L Normal 136-144 [facility] Comment on above: Order Comment: Preet patino Type: BLOOD SPECIMEN Ordering Facility: [facility] Address: [address] [address] Performed By: #### 2 4323-8 #### [facility] CLIA [id number] [address] [place] [address] 94235 Urea nitrogen [Mass/Vol] 23 mg/dL High 7-21 [facility] Comment on above: Order Comment: Speci men Type: BLOOD SPECIMEN Ordering Facility: [facility] Address: [address] [place] [address] Performed By: #### 2 4323-8 #### [facility] CLIA [id number] [address] [place] [address] 16801 CBC W Auto Differential pane l (Bld)on 05-28-2023 Basophils (Bld) [#/Vol] 0.03 10*3/uL Normal <0.11 [facility] Comment on above: Order Comment: Speci men Type: BLOOD SPECIMEN Ordering Facility: [facility] Address: [address] [place] [address] Performed By: #### 5 7021-8 #### [facility] CLIA [id number] [address] [place] [address] 02022 Basophils/100 WBC (Bld) 0.6 % Normal [facility] Comment on above: Order Comment: Speci men Type: BLOOD SPECIMEN Ordering Facility: [facility] Address: [address] [place] [address] Performed By: #### 5 7021-8 #### [facility] CLIA [id number] [address] [place] [address] 16203 Differential cell count method Nom (Bld) Auto Normal [facility] Comment on above: Order Comment: Speci men Type: BLOOD SPECIMEN Ordering Facility: [facility] Address: [address] [place] [address] Performed By: #### 5 7021-8 #### [facility] CLIA [id number] [address] [place] [address] 32153 Eosinophils (Bld) [#/Vol] 0.13 10*3/uL Normal <0.46 [facility] Comment on above: Order Comment: Speci men Type: BLOOD SPECIMEN Ordering Facility: [facility] Address: [facility] [address] [address] Performed By: #### 5 7021-8 #### [facility] CLIA [id number] [address] [place] [address] 34424 Eosinophils/100 WBC (Bld) 2.5 % Normal [facility] Comment on above: Order Comment: Speci men Type: BLOOD SPECIMEN Ordering Facility: [facility] Address: [address] [address] Performed By: #### 5 7021-8 #### [facility] CLIA [id number] [address] [place] [address] 55414 Erythrocyte distribution width (RBC) [Ratio] 13.7 % Normal 11.5-15.0 [facility] Comment on above: Order Comment: Speci men Type: BLOOD SPECIMEN Ordering Facility: [facility] Address: [address] [address] Performed By: #### 5 7021-8 #### [facility] CLIA [id number] [address] [place] [address] 96880 Hematocrit (Bld) [Volume fraction] 27.9 % Low 36.0-46.0 [facility] Comment on above: Order Comment: Speci men Type: BLOOD SPECIMEN Ordering Facility: [facility] Address: [address] [address] Performed By: #### 5 7021-8 #### [facility] CLIA [id number] [address] [place] [address] 36658 Hemoglobin (Bld) [Mass/Vol] 8.8 g/dL Low 11.5-15.5 [facility] Comment on above: Order Comment: Speci men Type: BLOOD SPECIMEN Ordering Facility: [facility] Address: [address] [address] Performed By: #### 5 7021-8 #### [facility] CLIA [id number] [address] [place] [address] 98698 Immature granulocytes (Bld) [#/Vol] 10*3/uL Normal <0.10 [facility] Comment on above: Order Comment: Speci men Type: BLOOD SPECIMEN Ordering Facility: [facility] Address: [address] [address] Performed By: #### 5 7021-8 #### [facility] CLIA [id number] [address] [place] [address] 05581 Immature granulocytes/100 WBC (Bld) 0.4 % Normal [facility] Comment on above: Order Comment: Speci men Type: BLOOD SPECIMEN Ordering Facility: [facility] Address: [address] [address] Performed By: #### 5 7021-8 #### [facility] CLIA [id number] [address] [place] [address] 96638 Lymphocytes (Bld) [#/Vol] 0.88 10*3/uL Low 1.00-4.00 [facility] Comment on above: Order Comment: Speci men Type: BLOOD SPECIMEN Ordering Facility: [facility] Address: [address] [address] Performed By: #### 5 7021-8 #### [facility] CLIA [id number] [address] [place] [address] 65697 Lymphocytes/100 WBC (Bld) 16.8 % Normal [facility] Comment on above: Order Comment: Speci men Type: BLOOD SPECIMEN Ordering Facility: [facility] Address: [address] [address] Performed By: #### 5 7021-8 #### [facility] CLIA [id number] [address] [place] [address] 09139 MCH (RBC) [Entitic mass] 29.1 pg Normal 26.0-34.0 [facility] Comment on above: Order Comment: Speci men Type: BLOOD SPECIMEN Ordering Facility: [facility] Address: [address] [address] Performed By: #### 5 7021-8 #### [facility] CLIA [id number] [address] [place] [address] 63152 MCHC (RBC) [Mass/Vol] 31.5 g/dL Normal 30.5-36.0 [facility] Comment on above: Order Comment: Speci men Type: BLOOD SPECIMEN Ordering Facility: [facility] Address: [address] [place] [address] Performed By: #### 5 7021-8 #### [facility] CLIA [id number] [address] [place] [address] 25277 MCV (RBC) [Entitic vol] 92.4 fL Normal 80.0-100.0 [facility] Comment on above: Order Comment: Speci men Type: BLOOD SPECIMEN Ordering Facility: [facility] Address: [address] [place] [address] Performed By: #### 5 7021-8 #### [facility] CLIA [id number] [address] [place] [address] 92239 Monocytes (Bld) [#/Vol] 0.43 10*3/uL Normal <0.87 [facility] Comment on above: Order Comment: Speci men Type: BLOOD SPECIMEN Ordering Facility: [facility] Address: [address] [place] [address] Performed By: #### 5 7021-8 #### [facility] CLIA [id number] [address] [place] [address] 92020 Monocytes/100 WBC (Bld) 8.2 % Normal [facility] Comment on above: Order Comment: Speci men Type: BLOOD SPECIMEN Ordering Facility: [facility] Address: [address] [place] [address] Performed By: #### 5 7021-8 #### [facility] CLIA [id number] [address] [place] [address] 32125 Neutrophils (Bld) [#/Vol] 3.76 10*3/uL Normal 1.45-7.50 [facility] Comment on above: Order Comment: Speci men Type: BLOOD SPECIMEN Ordering Facility: [facility] Address: [facility] [address] [address] Performed By: #### 5 7021-8 #### [facility] CLIA [id number] [address] [place] [address] 24005 Neutrophils/100 WBC (Bld) 71.5 % Normal [facility] Comment on above: Order Comment: Speci men Type: BLOOD SPECIMEN Ordering Facility: [facility] Address: [address] [address] Performed By: #### 5 7021-8 #### [facility] CLIA [id number] [address] [place] [address] 00016 Nucleated RBC (Bld) [#/Vol] 10*3/uL Normal <0.01 [facility] Comment on above: Order Comment: Speci men Type: BLOOD SPECIMEN Ordering Facility: [facility] Address: [address] [address] Performed By: #### 5 7021-8 #### [facility] CLIA [id number] [address] [place] [address] 14249 Nucleated RBC/100 WBC (Bld) [Ratio] 0.0 /100 WBC Normal [facility] Comment on above: Order Comment: Speci men Type: BLOOD SPECIMEN Ordering Facility: [facility] Address: [address] [address] Performed By: #### 5 7021-8 #### [facility] CLIA [id number] [address] [place] [address] 31110 Platelet mean volume (Bld) [Entitic vol] 10.2 fL Normal 9.0-12.7 [facility] Comment on above: Order Comment: Speci men Type: BLOOD SPECIMEN Ordering Facility: [facility] Address: [address] [address] Performed By: #### 5 7021-8 #### [facility] CLIA [id number] [address] [place] [address] 03681 Platelets (Bld) [#/Vol] 238 10*3/uL Normal 150-400 [facility] Comment on above: Order Comment: Speci men Type: BLOOD SPECIMEN Ordering Facility: [facility] Address: [address] [address] Performed By: #### 5 7021-8 #### [facility] CLIA [id number] [address] [place] [address] 24562 RBC (Bld) [#/Vol] 3.02 10*6/uL Low 3.90-5.20 [facility] Comment on above: Order Comment: Speci men Type: BLOOD SPECIMEN Ordering Facility: [facility] Address: [address] [address] Performed By: #### 5 7021-8 #### [facility] CLIA [id number] [address] [place] [id number] WBC (Bld) [#/Vol] 5.25 10*3/uL Normal 3.70-11.00 [facility] Comment on above: Order Comment: Speci men Type: BLOOD SPECIMEN Ordering Facility: [facility] Address: [address] [address] Performed By: #### 5 7021-8 #### [facility] CLIA [id number] [address] [place] [id number] IMMUNOFIXATION SCREEN, SERUM on 05-28-2023 MPA RESULT No M protein is identified. Normal No M protein is identified. [facility] Comment on above: Order Comment: Speci men Type: BLOOD SPECIMEN Ordering Facility: [facility] Address: [address] Performed By: #### 5 7021-8 #### [facility] CLIA [id number] [address] [place] [address] STAFF REVIEW (MPA) Reviewed by Milka Bahena MD [facility] Comment on above: Order Comment: Speci men Type: BLOOD SPECIMEN Ordering Facility: [facility] Address: [address] [place] [address] Performed By: #### 5 7021-8 #### [facility] CLIA [id number] [address] [place] [address] IMMUNOGLOBULINS GAMon 2022 IgA [Mass/Vol] 77 mg/dL Normal 70-400 [facility] Comment on above: Order Comment: Speci men Type: BLOOD SPECIMEN Ordering Facility: [facility] Address: [address] [place] [address] Performed By: #### K LFRS #### [facility] CLIA [id number] [address] [place] [address] [place] IgG [Mass/Vol] 682 mg/dL Low 700-1600 [facility] Comment on above: Order Comment: Speci men Type: BLOOD SPECIMEN Ordering Facility: [facility] Address: [address] [place] [address] Performed By: #### K LFRS #### [facility] CLIA [id number] [address] [place] [address] [place] IgM [Mass/Vol] 285 mg/dL High 40-230 [facility] Comment on above: Order Comment: Speci men Type: BLOOD SPECIMEN Ordering Facility: [facility] Address: [address] [place] [address] Performed By: #### K LFRS #### [facility] CLIA [id number] [address] [place] [address] [place] KAPPA/BOWLES,FREE,SERon 2022 Immunoglobulin light chains.kappa.free (S) [Mass/Vol] 111.0 mg/L High 3.3-19.4 [facility] Comment on above: Order Comment: Speci men Type: BLOOD SPECIMEN Ordering Facility: [facility] Address: [address] [place] [address] Result Comment: Rare ly, increased serum free light chains levels may not be detected or accurately quantified due to prozone phenomenon or in high viscosity samples using this immunoturbidimetric assay. Correlation with other laboratory results and clinical findings is recommended. The [place] Free Light Chain was performed using the Binding Site Optilite immunoturbidimetric method. Result obtained with different assay methods or kits cannot be used interchangeably. Performed By: #### 2 4323-8 #### [facility] CLIA [id number] [address] [place] [address] Immunoglobulin light chains.kappa/Immunogl obulin light chains.lambda (S) [Mass ratio] 4.48 High 0.26-1.65 [facility] Comment on above: Order Comment: Speci men Type: BLOOD SPECIMEN Ordering Facility: [facility] Address: [address] [place] [address] Performed By: #### 2 4323-8 #### [facility] CLIA [id number] [address] [place] [address] Immunoglobulin light chains.lambda.free [Mass/Vol] 24.8 mg/L Normal 5.7-26.3 [facility] Comment on above: Order Comment: Speci men Type: BLOOD SPECIMEN Ordering Facility: [facility] Address: [address] [place] [address] Result Comment: Rare ly, increased serum free [...] interchangeably. Performed By: #### 2 4323-8 #### [facility] CLIA [id number] [address] [place] [address] PROTEIN ELECTROPHORESIS SERU M WITH BRANDON (P)on 05-28-2023 Albumin [Mass/Vol] 3.50 g/dL Normal 3.43-5.41 [facility] Comment on above: Order Comment: Speci men Type: BLOOD SPECIMEN Ordering Facility: [facility] Address: [address] [place] [address] Performed By: #### K LFRS #### [facility] CLIA [id number] [address] [place] [address] [place] Alpha 1 globulin Elph [Mass/Vol] 0.35 g/dL Normal 0.18-0.43 [facility] Comment on above: Order Comment: Speci men Type: BLOOD SPECIMEN Ordering Facility: [facility] Address: [address] [place] [address] Performed By: #### K LFRS #### [facility] CLIA [id number] [address] [place] [address] [place] Alpha 2 globulin Elph [Mass/Vol] 0.73 g/dL Normal 0.42-0.98 [facility] Comment on above: Order Comment: Speci men Type: BLOOD SPECIMEN Ordering Facility: [facility] Address: [address] [place] [address] Performed By: #### K LFRS #### [facility] CLIA [id number] [address] [place] [address] [place] Beta globulin Elph [Mass/Vol] 0.60 g/dL Low 0.61-1.17 [facility] Comment on above: Order Comment: Speci men Type: BLOOD SPECIMEN Ordering Facility: [facility] Address: [address] [place] [address] Performed By: #### K LFRS #### [facility] CLIA [id number] [facility] [place] [address] [place] COMMENT (SERUM PROT ELECTRO) Monoclonal Protein analysis (immunofixation) is not indicated. Normal [facility] Comment on above: Order Comment: Speci men Type: BLOOD SPECIMEN Ordering Facility: [facility] Address: [address] [place] [address] Performed By: #### K LFRS #### [facility] CLIA [id number] [address] [place] [address] [place] Gamma globulin Elph [Mass/Vol] 0.72 g/dL Normal 0.53-1.51 [facility] Comment on above: Order Comment: Speci men Type: BLOOD SPECIMEN Ordering Facility: [facility] Address: [address] [place] [address] Performed By: #### K LFRS #### [facility] CLIA [id number] [address] [place] [address] [place] M-PROTEIN LOCATION Normal [facility] Comment on above: Order Comment: Speci men Type: BLOOD SPECIMEN Ordering Facility: [facility] Address: [address] [place] [address] Result Comment: Not Applicable. Performed By: #### K LFRS #### [facility] CLIA [id number] [address] [place] [address] [place] Protein Fractions [Interp] No definitive M protein is identified on protein electrophoresis. Normal No definitive M protein is identified on protein electrophor esis. [facility] Comment on above: Order Comment: Speci men Type: BLOOD SPECIMEN Ordering Facility: [facility] Address: [address] [place] [address] Performed By: #### K LFRS #### [facility] CLIA [id number] [address] [place] [address] [place] Protein.monoclonal Elph [Mass/Vol] 0.00 g/dL Normal <=0.00 [facility] Comment on above: Order Comment: Speci men Type: BLOOD SPECIMEN Ordering Facility: [facility] Address: [address] [place] [address] Performed By: #### K LFRS #### [facility] CLIA [id number] [address] [place] [id number] [place] SPE STAFF REVIEW Reviewed by Milka Bahena MD Normal [facility] Comment on above: Order Comment: Speci men Type: BLOOD SPECIMEN Ordering Facility: [facility] Address: [address] [place] [address] Performed By: #### K LFRS #### [facility] CLIA [id number] [address] [place] [address] [place] Prot SerPl-mCncon 05-28-2023 Protein [Mass/Vol] 5.9 g/dL Low 6.3-8.0 [facility] Comment on above: Order Comment: Speci men Type: BLOOD SPECIMEN Ordering Facility: [facility] Address: [address] [place] [address] Performed By: #### K LFRS #### [facility] CLIA [id number] [address] [place] [address] [place] Basic Metabolic Panelon 07- Anion gap [Moles/Vol] 12.5 mmol/L Normal 6.0-15.0 [facility] Comment on above: Performed By: #### C BC, BMP, PHOS, MG #### [facility] [address] [place] [id number] [place] Calcium [Mass/Vol] 8.9 mg/dL Normal 8.6-10.3 [facility] Comment on above: Performed By: #### C BC, BMP, PHOS, MG #### [facility] [address] [place] [id number] [place] Chloride [Moles/Vol] 103 mmol/L Normal 98-107 [facility] Comment on above: Performed By: #### C BC, BMP, PHOS, MG #### [facility] [address] [place] [place] [id number] [place] CO2 [Moles/Vol] 30.5 mmol/L Normal 21.0-31.0 [facility] Comment on above: Performed By: #### C BC, BMP, PHOS, MG #### [facility] [address] [place] [address] [place] Creatinine [Mass/Vol] 1.37 mg/dL High 0.60-1.20 [facility] Comment on above: Performed By: #### C BC, BMP, PHOS, MG #### [facility] [address] [place] [address] [place] Creatinine Clr Calc Pharmacy 38.04 Normal [facility] Comment on above: Performed By: #### C BC, BMP, PHOS, MG #### [facility] [address] GFR/1.73 sq M.predicted MDRD (S/P/Bld) [Vol rate/Area] 39.034 mL/min/{1.73_m2} Normal [facility] Comment on above: Performed By: #### C BC, BMP, PHOS, MG #### [address] Glucose [Mass/Vol] 94 mg/dL Normal 70-100 [facility] Comment on above: Result Comment: [facility] Glucose Reference Range is dependent on time and content of last meal. Glucose of more than 200 mg/dL in a nonstressed, ambulatory subject supports the diagnosis of Diabetes Mellitus. ADA recommended reference range Performed By: #### C BC, BMP, PHOS, MG #### [address] Potassium [Moles/Vol] 4.0 mmol/L Normal 3.5-5.1 [facility] Comment on above: Performed By: #### C BC, BMP, PHOS, MG #### [address] Sodium [Moles/Vol] 142 mmol/L Normal 136-145 [facility] Comment on above: Performed By: #### C BC, BMP, PHOS, MG #### [address] Urea nitrogen [Mass/Vol] 21 mg/dL Normal 7-25 [facility] Comment on above: Performed By: #### C BC, BMP, PHOS, MG #### [facility] [address] [place] [address] [place] Basophils Auto (Bld) [#/Vol] Ordered By: Lj Ryan on 05-18-2023 Basophils (Bld) [#/Vol] 0.0 10*3/uL 0.0-0.2 [facility] Basophils/100 WBC Auto (Bld) Ordered By: Lj Ryan on 05-18-2023 Basophils/100 WBC (Bld) 0.7 % . [facility] Calcium [Mass/volume] in Ser um or PlasmaOrdered By: Lj Ryan on 05-18-2023 Calcium [Mass/Vol] 8.9 mg/dL 8.6-10.3 [facility] Carbon dioxide, total [Moles /volume] in Serum or PlasmaOrdered By: Lj Ryan on 05-18-2023 CO2 [Moles/Vol] 30.5 mmol/L 21.0-31.0 [facility] Chloride [Moles/volume] in S courtney or PlasmaOrdered By: Lj Ryan on 05-18-2023 Chloride [Moles/Vol] 103 mmol/L 98-107 [facility] Complete Blood Count Auto Di ffon 05-18-2023 Basophils (Bld) [#/Vol] 0.0 10*3/uL Normal 0.0-0.2 [facility] Comment on above: Result Comment: PERF ORMED BY: [place] [address] PATHOLOGIST PROTOZOOLOGY TEACHER JAMAAL MO M.D. Performed By: #### C BC, BMP, PHOS, MG #### [address] Basophils/100 WBC (Bld) 0.7 % Normal . [facility] Comment on above: Performed By: #### C BC, BMP, PHOS, MG #### [facility] [address] [place] [address] [place] Eosinophils (Bld) [#/Vol] 0.1 10*3/uL Normal 0.0-0.45 [facility] Comment on above: Performed By: #### C BC, BMP, PHOS, MG #### [place] [address] [place] Eosinophils/100 WBC (Bld) 1.9 % Normal . [facility] Comment on above: Performed By: #### C BC, BMP, PHOS, MG #### [address] Erythrocyte distribution width (RBC) [Ratio] 14.1 % Normal 11.9-15.3 [facility] Comment on above: Performed By: #### C BC, BMP, PHOS, MG #### [address] Hematocrit (Bld) [Volume fraction] 28.2 % Low 34.0-46.4 [facility] Comment on above: Performed By: #### C BC, BMP, PHOS, MG #### [address] Hemoglobin (Bld) [Mass/Vol] 9.7 g/dL Low 11.8-15.4 [facility] Comment on above: Performed By: #### C BC, BMP, PHOS, MG #### [address] Lymphocytes (Bld) [#/Vol] 0.9 10*3/uL Low 1.00-4.8 [facility] Comment on above: Performed By: #### C BC, BMP, PHOS, MG #### [address] Lymphocytes/100 WBC (Bld) 15.1 % Normal . [facility] Comment on above: Performed By: #### C BC, BMP, PHOS, MG #### [address] MCH (RBC) [Entitic mass] 30.2 pg Normal 24.7-34.3 [facility] Comment on above: Performed By: #### C BC, BMP, PHOS, MG #### [address] MCV (RBC) [Entitic vol] 87.7 fL Normal 80-100 [facility] Comment on above: Performed By: #### C BC, BMP, PHOS, MG #### [address] Mean Corpuscular HGB Conc 34.4 g/dL Normal 32.0-35.0 [facility] Comment on above: Performed By: #### C BC, BMP, PHOS, MG #### [address] Monocytes (Bld) [#/Vol] 0.5 10*3/uL Normal 0.0-0.8 [facility] Comment on above: Performed By: #### C BC, BMP, PHOS, MG #### [place] [address] [place] Monocytes/100 WBC (Bld) 8.7 % Normal . [facility] Comment on above: Performed By: #### C BC, BMP, PHOS, MG #### [address] Neutrophils (Bld) [#/Vol] 4.4 10*3/uL Normal 1.8-7.7 [facility] Comment on above: Performed By: #### C BC, BMP, PHOS, MG #### [place] [address] [place] Neutrophils/100 WBC (Bld) 73.6 % Normal . [facility] Comment on above: Performed By: #### C BC, BMP, PHOS, MG #### [place] [address] [place] NRBC% 0.1 /100{WBC} Normal 0-0.5 [facility] Comment on above: Performed By: #### C BC, BMP, PHOS, MG #### [place] [address] [place] Platelet mean volume (Bld) [Entitic vol] 7.8 fL Normal 6.3-10.7 [facility] Comment on above: Performed By: #### C BC, BMP, PHOS, MG #### [place] [address] [place] Platelets (Bld) [#/Vol] 314 10*3/uL Normal 150-450 [facility] Comment on above: Performed By: #### C BC, BMP, PHOS, MG #### [place] [address] [place] RBC (Bld) [#/Vol] 3.21 10*6/uL Low 3.60-5.00 [facility] Comment on above: Performed By: #### C BC, BMP, PHOS, MG #### [facility] [address] WBC (Bld) [#/Vol] 6.0 10*3/uL Normal 3.8-11.6 [facility] Comment on above: Performed By: #### C BC, BMP, PHOS, MG #### [facility] [address] Creatinine [Mass/volume] in Serum or PlasmaOrdered By: Lj Ryan on 05-18-2023 Creatinine [Mass/Vol] 1.37 mg/dL 0.60-1.20 [facility] Eosinophils Auto (Bld) [#/Vo l]Ordered By: Lj Ryan on 05-18-2023 Eosinophils (Bld) [#/Vol] 0.1 10*3/uL 0.0-0.45 [facility] Eosinophils/100 WBC Auto (Bl d)Ordered By: Lj Ryan on 05-18-2023 Eosinophils/100 WBC (Bld) 1.9 % . [facility] Erythrocyte distribution wid th Auto (RBC) [Ratio]Ordered By: Lj Ryan on 05-18-2023 Erythrocyte distribution width (RBC) [Ratio] 14.1 % 11.9-15.3 [facility] Glucose [Mass/volume] in Ser um or PlasmaOrdered By: Lj Ryan on 05-18-2023 Glucose [Mass/Vol] 94 mg/dL 70-100 [facility] Comment on above: ADA recommended refe rence rangeRandom Glucose Reference Range is dependent on time and content of last meal. Glucose of more than 200 mg/dL in a nonstressed, ambulatory subject supports the diagnosis of Diabetes Mellitus. Hematocrit Auto (Bld) [Volum e fraction]Ordered By: Lj Ryan on 05-18-2023 Hematocrit (Bld) [Volume fraction] 28.2 % 34.0-46.4 [facility] Hemoglobin [Mass/volume] in BloodOrdered By: Lj Ryan on 05-18-2023 Hemoglobin (Bld) [Mass/Vol] 9.7 g/dL 11.8-15.4 [facility] Leukocytes [#/volume] correc miguel for nucleated erythrocytes in Blood by Automated counOrdered By: Lj Ryan on 05-18-2023 WBC corrected for nucl RBC Auto (Bld) [#/Vol] 6.0 10*3/uL 3.8-11.6 [facility] Lymphocytes Auto (Bld) [#/Vo l]Ordered By: Lj Ryan on 05-18-2023 Lymphocytes (Bld) [#/Vol] 0.9 10*3/uL 1.00-4.8 [facility] Lymphocytes/100 WBC Auto (Bl d)Ordered By: Lj Ryan on 05-18-2023 Lymphocytes/100 WBC (Bld) 15.1 % . [facility] MCH Auto (RBC) [Entitic mass ]Ordered By: Lj Ryan on 05-18-2023 MCH (RBC) [Entitic mass] 30.2 pg 24.7-34.3 [facility] MCHC Auto (RBC) [Mass/Vol]Or dered By: Lj Ryan on 05-18-2023 MCHC (RBC) [Mass/Vol] 34.4 g/dL 32.0-35.0 [facility] MCV Auto (RBC) [Entitic vol] Ordered By: Lj Ryan on 05-18-2023 MCV (RBC) [Entitic vol] 87.7 fL 80-100 [facility] Magnesiumon 05-18-2023 Magnesium [Mass/Vol] 2.1 mg/dL Normal 1.9-2.7 [facility] Comment on above: Result Comment: PERF ORMED BY: [facility] [address] [place] [address] PATHOLOGIST PROTOZOOLOGY TEACHER JAMAAL MO M.D. Performed By: #### C BC, BMP, PHOS, MG #### [address] Magnesium [Mass/volume] in S courtney or PlasmaOrdered By: Lj Ryan on 05-18-2023 Magnesium [Mass/Vol] 2.1 mg/dL 1.9-2.7 [facility] Monocytes Auto (Bld) [#/Vol] Ordered By: Lj Ryan on 05-18-2023 Monocytes (Bld) [#/Vol] 0.5 10*3/uL 0.0-0.8 [facility] Monocytes/100 WBC Auto (Bld) Ordered By: Lj Ryan on 05-18-2023 Monocytes/100 WBC (Bld) 8.7 % . [facility] Neutrophils Auto (Bld) [#/Vo l]Ordered By: Lj Ryan on 05-18-2023 Neutrophils (Bld) [#/Vol] 4.4 10*3/uL 1.8-7.7 [facility] Neutrophils/100 WBC Auto (Bl d)Ordered By: Lj Ryan on 05-18-2023 Neutrophils/100 WBC (Bld) 73.6 % . [facility] No Panel InformationOrdered By: Lj Ryan on 05-18-2023 Estimated GFR (CKD-EPI) 39.034 mL/Min [facility] Creatinine Clearance (Chem 38.04 [facility] Nucleated erythrocytes [Pres ence] in Blood by Automated countOrdered By: Lj Ryan on 05-18-2023 Nucleated RBC Auto Ql (Bld) 0.1 /100{WBC} 0-0.5 [facility] Phosphate [Mass/volume] in S courtney or PlasmaOrdered By: Lj Ryan on 05-18-2023 Phosphate [Mass/Vol] 5.3 mg/dL 3.7-7.2 [facility] Phosphoruson 05-18-2023 Phosphate [Mass/Vol] 5.3 mg/dL Normal 3.7-7.2 [facility] Comment on above: Performed By: #### C BC, BMP, PHOS, MG #### [facility] [address] Platelet mean volume Auto (B ld) [Entitic vol]Ordered By: Lj Ryan on 05-18-2023 Platelet mean volume (Bld) [Entitic vol] 7.8 fL 6.3-10.7 [facility] Platelets Auto (Bld) [#/Vol] Ordered By: Lj Ryan on 05-18-2023 Platelets (Bld) [#/Vol] 314 10*3/uL 150-450 [facility] Potassium [Moles/volume] in Serum or PlasmaOrdered By: Lj Ryan on 05-18-2023 Potassium [Moles/Vol] 4.0 mmol/L 3.5-5.1 [facility] RBC Auto (Bld) [#/Vol]Ordere d By: Lj Ryan on 05-18-2023 RBC (Bld) [#/Vol] 3.21 10*6/uL 3.60-5.00 [facility] Serum or plasma anion gap de terminationOrdered By: Lj Ryan on 05-18-2023 Anion gap [Moles/Vol] 12.5 mmol/L 6.0-15.0 [facility] Sodium [Moles/volume] in Ser um or PlasmaOrdered By: Lj Ryan on 05-18-2023 Sodium [Moles/Vol] 142 mmol/L 136-145 [facility] US venous duplex LE BIon US venous duplex LE BI [facility] [place] [address] Ultrasound Report Signed Patient: Lashaun Joaquin MR#: [id number] : 1940 Acct:[id number] Age/Sex: 82 / F ADM Date: 05/17/23 Loc: Room: [address] [place] [address] Type: ADM INOo Attending Dr: Lj Ryan [...] Seth Garcia M.D.05/18/2023 10:08 AM Dictation Location: [place] [address] Tech: Paolo Anishasinghbruce Transcribed By: LAURA 05/18/23 100 Dictated By: Seth Garcia MD 05/18/23 100 Signed By: 05/18/23 1008 Normal [facility] Urea nitrogen [Mass/volume] in Serum or PlasmaOrdered By: Lj Ryan on 05-18-2023 Urea nitrogen [Mass/Vol] 21 mg/dL 05-22 [facility] WBC Auto (Bld) [#/Vol]Ordere d By: Lj Ryan on 05-18-2023 WBC (Bld) [#/Vol] 6.0 10*3/uL 3.8-11.6 [facility] Alanine aminotransferase [En zymatic activity/volume] in Serum or PlasmaOrdered By: Parris Ch on 05-17-2023 ALT [Catalytic activity/Vol] 14 U/L 7 [facility] Albumin [Mass/volume] in Ser um or Plasma by Bromocresol green (BCG) dye binding methoOrdered By: Parris Ch on 05-17-2023 Albumin BCG dye [Mass/Vol] 4.0 g/dL 3.5-5.7 [facility] Alkaline phosphatase [Enzyma tic activity/volume] in Serum or PlasmaOrdered By: Parris Ch on 05-17-2023 ALP [Catalytic activity/Vol] 44 U/L 34-104 [facility] Aspartate aminotransferase [ Enzymatic activity/volume] in Serum or PlasmaOrdered By: Parris Ch on 05-17-2023 AST [Catalytic activity/Vol] 16 U/L 13-39 [facility] B-Type Natriuretic Peptideon 05-17-2023 Natriuretic peptide B (Bld) [Mass/Vol] 450.0 pg/mL High 5-100 [facility] Comment on above: Result Comment: PERF ORMED BY: [place] [address] PATHOLOGIST PROTOZOOLOGY TEACHER JAMAAL MO M.D. Performed By: #### C BC, BMP, PHOS, MG #### [facility] [address] Bilirubin.total [Mass/volume ] in Serum or PlasmaOrdered By: Parris Ch on 05-17-2023 Bilirubin [Mass/Vol] 0.7 mg/dL 0.3-1.0 [facility] CT angio chest PE protocolon 05-17-2023 CT angio chest PE protocol [facility] [place] [address] [place] [address] CT Scan Report Signed Patient: Lashaun Joaquin MR#: [id number] : 1940 Acct:[id number] Age/Sex: 82 / F ADM Date: 05/17/23 [...] RESOLUTION. Impression dictated by: Epifanio Lyon Jr., D.O.05/17/2023 12:10 PM Dictation Location: [place] [address] Transcribed By: [facility] 05/17/23 1210 Dictated By: Epifanio Lyon Jr, DO 05/17/23 1152 Signed By: 05/17/23 1210 Normal [facility] Complete Blood Count Auto Di ffon 05-17-2023 Basophils (Bld) [#/Vol] 0.1 10*3/uL Normal 0.0-0.2 [facility] Comment on above: Result Comment: PERF ORMED BY: [place] [address] PATHOLOGIST PROTOZOOLOGY TEACHER JAMAAL MO M.D. Performed By: #### C BC, BMP, PHOS, MG #### [address] Basophils/100 WBC (Bld) 0.5 % Normal . [facility] Comment on above: Performed By: #### C BC, BMP, PHOS, MG #### [address] Eosinophils (Bld) [#/Vol] 0.1 10*3/uL Normal 0.0-0.45 [facility] Comment on above: Performed By: #### C BC, BMP, PHOS, MG #### [place] [address] [place] Eosinophils/100 WBC (Bld) 0.5 % Normal . [facility] Comment on above: Performed By: #### C BC, BMP, PHOS, MG #### [address] Erythrocyte distribution width (RBC) [Ratio] 14.1 % Normal 11.9-15.3 [facility] Comment on above: Performed By: #### C BC, BMP, PHOS, MG #### [address] Hematocrit (Bld) [Volume fraction] 29.0 % Low 34.0-46.4 [facility] Comment on above: Performed By: #### C BC, BMP, PHOS, MG #### [address] Hemoglobin (Bld) [Mass/Vol] 9.9 g/dL Low 11.8-15.4 [facility] Comment on above: Performed By: #### C BC, BMP, PHOS, MG #### [address] Lymphocytes (Bld) [#/Vol] 1.0 10*3/uL Normal 1.00-4.8 [facility] Comment on above: Performed By: #### C BC, BMP, PHOS, MG #### [address] Lymphocytes/100 WBC (Bld) 9.3 % Normal . [facility] Comment on above: Performed By: #### C BC, BMP, PHOS, MG #### [address] MCH (RBC) [Entitic mass] 29.7 pg Normal 24.7-34.3 [facility] Comment on above: Performed By: #### C BC, BMP, PHOS, MG #### [address] MCV (RBC) [Entitic vol] 87.4 fL Normal 80-100 [facility] Comment on above: Performed By: #### C BC, BMP, PHOS, MG #### [address] Mean Corpuscular HGB Conc 34.0 g/dL Normal 32.0-35.0 [facility] Comment on above: Performed By: #### C BC, BMP, PHOS, MG #### [facility] [address] [place] [address] [place] Monocytes (Bld) [#/Vol] 0.6 10*3/uL Normal 0.0-0.8 [facility] Comment on above: Performed By: #### C BC, BMP, PHOS, MG #### [place] [address] [place] Monocytes/100 WBC (Bld) 22.37 % High 0.00-20.00 [facility] Comment on above: Result Comment: For adults in ED, MDW > 20.0 may be associated with a higher risk of sepsis during the first 12 hrs of hospital admission Performed By: #### C BC, BMP, PHOS, MG #### [address] Monocytes/100 WBC (Bld) 5.5 % Normal . [facility] Comment on above: Performed By: #### C BC, BMP, PHOS, MG #### [place] [address] [place] Neutrophils (Bld) [#/Vol] 8.6 10*3/uL High 1.8-7.7 [facility] Comment on above: Performed By: #### C BC, BMP, PHOS, MG #### [place] [address] [place] Neutrophils/100 WBC (Bld) 84.2 % Normal . [facility] Comment on above: Performed By: #### C BC, BMP, PHOS, MG #### [place] [address] [place] NRBC% 0.0 /100{WBC} Normal 0-0.5 [facility] Comment on above: Performed By: #### C BC, BMP, PHOS, MG #### [address] Platelet mean volume (Bld) [Entitic vol] 8.5 fL Normal 6.3-10.7 [facility] Comment on above: Performed By: #### C BC, BMP, PHOS, MG #### [address] Platelets (Bld) [#/Vol] 326 10*3/uL Normal 150-450 [facility] Comment on above: Performed By: #### C BC, BMP, PHOS, MG #### [address] RBC (Bld) [#/Vol] 3.32 10*6/uL Low 3.60-5.[address] [facility] Comment on above: Performed By: #### C BC, BMP, PHOS, MG #### [address] WBC (Bld) [#/Vol] 10.2 10*3/uL Normal 3.8-11.[address] [facility] Comment on above: Performed By: #### C BC, BMP, PHOS, MG #### [address] WBC (Bld) [#/Vol] 12.1 10*3/uL High 3.8-11.[address] [facility] Comment on above: Performed By: #### C BC, BMP, PHOS, MG #### [address] Comprehensive Metabolic Pane anibal 05-17-2023 Albumin [Mass/Vol] 4.0 g/dL Normal 3.5-5.7 [facility] Comment on above: Performed By: #### C BC, BMP, PHOS, MG #### [address] Albumin/Globulin [Mass ratio] 1.4 {ratio} Normal [facility] Comment on above: Performed By: #### C BC, BMP, PHOS, MG #### [address] ALP [Catalytic activity/Vol] 44 U/L Normal 34-104 [facility] Comment on above: Performed By: #### C BC, BMP, PHOS, MG #### [address] ALT [Catalytic activity/Vol] 14 U/L Normal 7-52 [facility] Comment on above: Performed By: #### C BC, BMP, PHOS, MG #### [address] Anion gap [Moles/Vol] 11.3 mmol/L Normal 6.0-15.0 [facility] Comment on above: Performed By: #### C BC, BMP, PHOS, MG #### [address] AST [Catalytic activity/Vol] 16 U/L Normal 13-39 [facility] Comment on above: Performed By: #### C BC, BMP, PHOS, MG #### [address] Bilirubin [Mass/Vol] 0.7 mg/dL Normal 0.3-1.0 [facility] Comment on above: Performed By: #### C BC, BMP, PHOS, MG #### [address] Calcium [Mass/Vol] 9.1 mg/dL Normal 8.6-10.3 [facility] Comment on above: Performed By: #### C BC, BMP, PHOS, MG #### [address] Chloride [Moles/Vol] 107 mmol/L Normal 98-107 [facility] Comment on above: Performed By: #### C BC, BMP, PHOS, MG #### [place] [address] [place] CO2 [Moles/Vol] 28.3 mmol/L Normal 21.0-31.0 [facility] Comment on above: Performed By: #### C BC, BMP, PHOS, MG #### [address] Creatinine [Mass/Vol] 1.12 mg/dL Normal 0.60-1.20 [facility] Comment on above: Performed By: #### C BC, BMP, PHOS, MG #### [facility] [address] [place] [address] [place] Creatinine Clr Calc Pharmacy 47.90 Normal [facility] Comment on above: Performed By: #### C BC, BMP, PHOS, MG #### [facility] [address] [place] [address] [place] GFR/1.73 sq M.predicted MDRD (S/P/Bld) [Vol rate/Area] 49.710 mL/min/{1.73_m2} Normal [facility] Comment on above: Performed By: #### C BC, BMP, PHOS, MG #### [facility] [address] [place] [address] [place] Globulin (S) [Mass/Vol] 2.9 g/dL Normal [facility] Comment on above: Performed By: #### C BC, BMP, PHOS, MG #### [facility] [address] [place] [address] [place] Glucose [Mass/Vol] 100 mg/dL Normal 70-100 [facility] Comment on above: Result Comment: Coker Glucose Reference Range is dependent on time and content of last meal. Glucose of more than 200 mg/dL in a nonstressed, ambulatory subject supports the diagnosis of Diabetes Mellitus. ADA recommended reference range Performed By: #### C BC, BMP, PHOS, MG #### [facility] [address] [place] [address] [place] Potassium [Moles/Vol] 4.6 mmol/L Normal 3.5-5.1 [facility] Comment on above: Performed By: #### C BC, BMP, PHOS, MG #### [facility] [address] [place] [address] [place] Protein [Mass/Vol] 6.9 g/dL Normal 6.4-8.9 [facility] Comment on above: Performed By: #### C BC, BMP, PHOS, MG #### [facility] [address] [place] [id number] [place] Sodium [Moles/Vol] 142 mmol/L Normal 136-145 [facility] Comment on above: Performed By: #### C BC, BMP, PHOS, MG #### [facility] [address] [place] [id number] [place] Urea nitrogen [Mass/Vol] 16 mg/dL Normal 05-22 [facility] Comment on above: Performed By: #### C BC, BMP, PHOS, MG #### [facility] [address] [place] [address] [place] Creatine Kinaseon 05-17-2023 CK [Catalytic activity/Vol] 49 U/L Normal [facility] Comment on above: Performed By: #### C BC, BMP, PHOS, MG #### [facility] [address] [place] [id number] [place] Creatine kinase [Enzymatic a ctivity/volume] in Serum or PlasmaOrdered By: Parris Ch on 05-17-2023 CK [Catalytic activity/Vol] 49 U/L 30- [facility] ECG 12 lead ECGon 05-17-2023 ECG 12 lead ECG [facility] [place] [address] [place] [address] Electrocardiograph Report Signed Patient: Lashaun Joaquin MR#: [id number] : 1940 Acct:[id number] Age/Sex: 82 / F ADM Date: 05/17/23 Loc: Room: [address] [place] [address] Type: ADM INOo Attending Dr: Lj Ryan [...] now present Confirmed by PARRIS CH DO ([id number]) on 05/17/2023 8:14:27 PM Referred By: Electronically Signed By:PARRIS CH DO Transcribed By: MUS Signed By Parris Ch DO 05/17 Normal [facility] Globulin Calc (S) [Mass/Vol] Ordered By: Parris Ch on 05-17-2023 Globulin (S) [Mass/Vol] 2.9 g/dL [facility] Laboratory - CoagulationOrde red By: Parris Ch on 05-17-2023 PT Coag (PPP) [Time] 12.5 s 9.0-12.9 [facility] Magnesiumon 05-17-2023 Magnesium [Mass/Vol] 2.1 mg/dL Normal 1.9-2.7 [facility] Comment on above: Result Comment: PERF ORMED BY: [place] [address] PATHOLOGIST PROTOZOOLOGY TEACHER JAMAAL MO M.D. Performed By: #### C BC, BMP, PHOS, MG #### [address] Monocyte distribution width [Entitic volume] in Blood by AutomatedOrdered By: Parris Ch on 05-17-2023 Monocyte distribution width Auto (Bld) [Entitic vol] 22.37 % 0.00-20.00 [facility] Comment on above: For adults in ED, MD W > 20.0 may be associated with a higher risk of sepsis during the first 12 hrs of hospital admission Natriuretic peptide B [Mass/ Vol]Ordered By: Parris Ch on 05-17-2023 Natriuretic peptide B (Bld) [Mass/Vol] 450.0 pg/mL 5-100 [facility] Platelet poor plasma interna tional normalized ratio (INR) by coagulation assay (relatOrdered By: Parris Ch on 05-17-2023 INR Coag (PPP) [Relative time] 1.1 {INR} [facility] Comment on above: INR Therapeutic Rang e [...] on 05-17-2023 Protein [Mass/Vol] 6.9 g/dL 6.4-8.9 [facility] Prothrombin Time INRon 05-17 INR Coag (PPP) [Relative time] 1.1 {INR} Normal [facility] Comment on above: Result Comment: INR Therapeutic [...] heart valves: 3 - 4.5 PERFORMED BY: [place] [address] PATHOLOGIST PROTOZOOLOGY TEACHER JAMAAL MO M.D. Performed By: #### P T #### [facility] [address] [place] [address] PT Coag (PPP) [Time] 12.5 s Normal 9.0-12.9 [facility] Comment on above: Performed By: #### P T #### [facility] [address] [place] [address] Serum or plasma albumin/glob ulin mass ratioOrdered By: Parris Ch on 05-17-2023 Albumin/Globulin [Mass ratio] 1.4 {ratio} [facility] Troponin I High Sensitivityo n 05-17-2023 Troponin I High Sensitivity 10.2 pg/mL Normal 0.0-15.0 [facility] Comment on above: Result Comment: PERF ORMED BY: [place] [address] PATHOLOGIST PROTOZOOLOGY TEACHER JAMAAL MO M.D. Performed By: #### C BC, BMP, PHOS, MG #### [facility] [address] [place] [address] Troponin I.cardiac [Mass/vol ume] in Serum or Plasma by Detection limit <= 0.01 ng/Ordered By: Parris Ch on 05-17-2023 Troponin I.cardiac DL <= 0.01 ng/mL [Mass/Vol] 10.2 pg/mL 0.0-15.0 [facility] ECG 12 lead ECGon 03-09-2023 ECG 12 lead ECG [facility] [place] [address] [place] [id number] Electrocardiograph Report Signed Patient: Lashaun Joaquin MR#: [id number] : 1940 Acct:[id number] Age/Sex: 82 / F ADM Date: 03/09/23 Loc: Room: Type: [facility] Attending Dr: Jonna Perry DO Ordering Provider: Jonna Perry DO Date of Service: 03/09/2310/20/1117 ECG/ECG 12 [...] By Seth Markham DO 03/11 1133 Normal [facility] Activated partial thrombopla stin time (aPTT) in platelet poor plasma by coagulation aOrdered By: Jonna Perry on 03-08-2023 aPTT Coag (PPP) [Time] 32.0 s 25.1-36.5 [facility] Band form neutrophils/100 WB C Manual cnt (Bld)Ordered By: Jonna Perry on 03-08-2023 Band form neutrophils/100 WBC (Bld) 4 % 0-5 [facility] Basophils Auto (Bld) [#/Vol] Ordered By: Jonna Perry on 03-08-2023 Basophils (Bld) [#/Vol] N/A [facility] Basophils/100 WBC Auto (Bld) Ordered By: Jonna Perry on 05-11-2023 Basophils/100 WBC (Bld) N/A [facility] Basophils/100 WBC Manual cnt (Bld)Ordered By: Jonna Perry on 03-08-2023 Basophils/100 WBC (Bld) 0 % 0-2 [facility] Blood Urea Nitrogenon 2022 Urea nitrogen [Mass/Vol] 21 mg/dL Normal 7-25 [facility] Comment on above: Performed By: #### P P, LYTES, BUN, CREAT, LIPID, DIFF CBC #### [facility] [address] Carbon dioxide, total [Moles /volume] in Serum or PlasmaOrdered By: Jonna Perry on 03-08-2023 CO2 [Moles/Vol] 33.1 mmol/L 21.0-31.0 [facility] Chloride [Moles/volume] in S courtney or PlasmaOrdered By: Jonna Perry on 03-08-2023 Chloride [Moles/Vol] 104 mmol/L 98-107 [facility] Cholesterol [Mass/volume] in Serum or PlasmaOrdered By: Jonna Perry on 03-08-2023 Cholesterol [Mass/Vol] 151 mg/dL 140-200 [facility] Comment on above: Chol less than 200 m g/dl low riskChol 201-239 mg/dl borderline riskChol 240 mg/dl and greater high risk Cholesterol in LDL Calc [Mas s/Vol]Ordered By: Jonna Perry on 03-08-2023 Cholesterol in LDL [Mass/Vol] 100 mg/dL 0-100 [facility] Comment on above: LDL ATP III CLASSIFI CATIONLDL less than 100 mg/dL OptimalLDL 100-129 mg/dL Near or above optimalLDL 130-159 mg/dL Borderline highLDL 160-189 mg/dL HighLDL greater than 189 mg/dL Very high Cholesterol in VLDL Calc [Ma ss/Vol]Ordered By: Jonna Perry on 03-08-2023 Cholesterol in VLDL [Mass/Vol] 13 mg/dL [facility] Coagulation Profileon 2022 aPTT Coag (Bld) [Time] 32.0 s Normal 25.1-36.5 [facility] Comment on above: Result Comment: PERF ORMED BY: [place] [address] PATHOLOGIST PROTOZOOLOGY TEACHER JAMAAL MO M.D. Performed By: #### P P, LYTES, BUN, CREAT, LIPID, DIFF CBC #### [address] INR Coag (PPP) [Relative time] 1.1 {INR} Normal [facility] Comment on above: Result Comment: INR Therapeutic [...] valves: 3 - 4.5 Performed By: #### P P, LYTES, BUN, CREAT, LIPID, DIFF CBC #### [address] PT Coag (PPP) [Time] 12.2 s Normal 9.0-12.9 [facility] Comment on above: Performed By: #### P P, LYTES, BUN, CREAT, LIPID, DIFF CBC #### [address] Creatinineon 03-08-2023 Creatinine [Mass/Vol] 1.14 mg/dL Normal 0.60-1.20 [facility] Comment on above: Performed By: #### P P, LYTES, BUN, CREAT, LIPID, DIFF CBC #### [address] GFR/1.73 sq M.predicted MDRD (S/P/Bld) [Vol rate/Area] 48.665 mL/min/{1.73_m2} Normal [facility] Comment on above: Performed By: #### P P, LYTES, BUN, CREAT, LIPID, DIFF CBC #### [address] Creatinine [Mass/volume] in Serum or PlasmaOrdered By: Jonna Perry on 05-11-2023 Creatinine [Mass/Vol] 1.14 mg/dL 0.60-1.20 [facility] Diff and CBCon 03-08-2023 Band form neutrophils/100 WBC (Bld) 4 % Normal 0-5 [facility] Comment on above: Performed By: #### C BC, BMP, PHOS, MG #### [address] Basophils/100 WBC (Bld) 0 % Normal 0-2 [facility] Comment on above: Performed By: #### C BC, BMP, PHOS, MG #### [address] Eosinophils/100 WBC (Bld) 2 % Normal 1-3 [facility] Comment on above: Performed By: #### C BC, BMP, PHOS, MG #### [address] Erythrocyte distribution width (RBC) [Ratio] 14.1 % Normal 11.9-15.3 [facility] Comment on above: Performed By: #### C BC, BMP, PHOS, MG #### [address] Hematocrit (Bld) [Volume fraction] 30.7 % Low 34.0-46.4 [facility] Comment on above: Performed By: #### C BC, BMP, PHOS, MG #### [address] Hemoglobin (Bld) [Mass/Vol] 10.3 g/dL Low 11.8-15.4 [facility] Comment on above: Performed By: #### C BC, BMP, PHOS, MG #### [address] Large Platelets Slight Normal [facility] Comment on above: Result Comment: PERF ORMED BY: [place] [address] PATHOLOGIST PROTOZOOLOGY TEACHER JAMAAL MO M.D. Performed By: #### C BC, BMP, PHOS, MG #### [address] Lymphocytes/100 WBC (Bld) 16 % Low 18-42 [facility] Comment on above: Performed By: #### C BC, BMP, PHOS, MG #### [address] MCH (RBC) [Entitic mass] 29.0 pg Normal 24.7-34.3 [facility] Comment on above: Performed By: #### C BC, BMP, PHOS, MG #### [address] MCV (RBC) [Entitic vol] 86.2 fL Normal 80-100 [facility] Comment on above: Performed By: #### C BC, BMP, PHOS, MG #### [address] Mean Corpuscular HGB Conc 33.6 g/dL Normal 32.0-35.0 [facility] Comment on above: Performed By: #### C BC, BMP, PHOS, MG #### [address] Metamyelocytes 1 % High 0-0 [facility] Comment on above: Performed By: #### C BC, BMP, PHOS, MG #### [address] Monocytes/100 WBC (Bld) 3 % Normal 2-11 [facility] Comment on above: Performed By: #### C BC, BMP, PHOS, MG #### [address] Ovalocytes Slight Normal [facility] Comment on above: Performed By: #### C BC, BMP, PHOS, MG #### [address] Platelet Estimate Normal Normal Normal [facility] Comment on above: Performed By: #### C BC, BMP, PHOS, MG #### [address] Platelet mean volume (Bld) [Entitic vol] 9.0 fL Normal 6.3-10.7 [facility] Comment on above: Result Comment: PERF ORMED BY: [place] [address] PATHOLOGIST PROTOZOOLOGY TEACHER JAMAAL MO M.D. Performed By: #### C BC, BMP, PHOS, MG #### [address] Platelets (Bld) [#/Vol] 276 10*3/uL Normal 150-450 [facility] Comment on above: Performed By: #### C BC, BMP, PHOS, MG #### [address] Poikilocytosis Slight Normal [facility] Comment on above: Performed By: #### C BC, BMP, PHOS, MG #### [address] RBC (Bld) [#/Vol] 3.56 10*6/uL Low 3.60-5.[address] [facility] Comment on above: Performed By: #### C BC, BMP, PHOS, MG #### [address] Segmented neutrophils/100 WBC (Bld) 74 % High 50-70 [facility] Comment on above: Performed By: #### C BC, BMP, PHOS, MG #### [address] WBC (Bld) [#/Vol] 6.2 10*3/uL Normal 3.8-11.6 [facility] Comment on above: Performed By: #### C BC, BMP, PHOS, MG #### [address] WBC (Bld) [#/Vol] 8.6 10*3/uL Normal 3.8-11.6 [facility] Comment on above: Performed By: #### C BC, BMP, PHOS, MG #### [address] [address] [place] Electrolyteson 03-08-2023 Anion gap [Moles/Vol] 9.0 mmol/L Normal 6.0-15.0 [facility] Comment on above: Performed By: #### P P, LYTES, BUN, CREAT, LIPID, DIFF CBC #### [address] Chloride [Moles/Vol] 104 mmol/L Normal 98-107 [facility] Comment on above: Performed By: #### P P, LYTES, BUN, CREAT, LIPID, DIFF CBC #### [address] CO2 [Moles/Vol] 33.1 mmol/L High 21.0-31.0 [facility] Comment on above: Performed By: #### P P, LYTES, BUN, CREAT, LIPID, DIFF CBC #### [address] Potassium [Moles/Vol] 5.1 mmol/L Normal 3.5-5.1 [facility] Comment on above: Performed By: #### P P, LYTES, BUN, CREAT, LIPID, DIFF CBC #### [address] Sodium [Moles/Vol] 141 mmol/L Normal 136-145 [facility] Comment on above: Performed By: #### P P, LYTES, BUN, CREAT, LIPID, DIFF CBC #### [address] Eosinophils Auto (Bld) [#/Vo l]Ordered By: Jonna Perry on 03-08-2023 Eosinophils (Bld) [#/Vol] N/A [facility] Eosinophils/100 WBC Auto (Bl d)Ordered By: Jonna Perry on 03-08-2023 Eosinophils/100 WBC (Bld) N/A [facility] Eosinophils/100 WBC Manual c nt (Bld)Ordered By: Jonna Perry on 03-08-2023 Eosinophils/100 WBC (Bld) 2 % 1-3 [facility] Erythrocyte distribution wid th Auto (RBC) [Ratio]Ordered By: Jonna Perry on 03-08-2023 Erythrocyte distribution width (RBC) [Ratio] 14.1 % 11.9-15.3 [facility] Hematocrit Auto (Bld) [Volum e fraction]Ordered By: Jonna Perry on 03-08-2023 Hematocrit (Bld) [Volume fraction] 30.7 % 34.0-46.4 [facility] Hemoglobin [Mass/volume] in BloodOrdered By: Jonna Perry on 03-08-2023 Hemoglobin (Bld) [Mass/Vol] 10.3 g/dL 11.8-15.4 [facility] Laboratory - Chemistry and C hemistry - challengeon 03-08-2023 Cholesterol [Mass/Vol] 151\S\151 Normal 140-200 [facility] y 250 DO Work Phone: Comment on above: Chol less than 200 m g/dl low risk Chol 201-239 mg/dl borderline risk Chol 240 mg/dl and greater high risk Cholesterol in LDL [Mass/Vol] 100\S\100 Normal 0-100 [facility] y 250 DO Work Phone: Comment on above: LDL ATP III CLASSIFI CATION LDL less than 100 mg/dL Optimal LDL 100-129 mg/dL Near or above optimal LDL 130-159 mg/dL Borderline high LDL 160-189 mg/dL High LDL greater than 189 mg/dL Very high Laboratory - CoagulationOrde red By: Jonna Perry on 03-08-2023 PT Coag (PPP) [Time] 12.2 s 9.0-12.9 [facility] Leukocytes [#/volume] correc miguel for nucleated erythrocytes in Blood by Automated counOrdered By: Jonna Perry on 03-08-2023 WBC corrected for nucl RBC Auto (Bld) [#/Vol] 6.2 10*3/uL 3.8-11.6 [facility] Lipid Panelon 03-08-2023 Cholesterol [Mass/Vol] 151 mg/dL Normal 140-200 [facility] Comment on above: Result Comment: Chol less than 200 mg/dl low risk Chol 201-239 mg/dl borderline risk Chol 240 mg/dl and greater high risk Performed By: #### C BC, BMP, PHOS, MG #### [address] Cholesterol in HDL [Mass/Vol] 38 mg/dL Normal 35-85 [facility] Comment on above: Result Comment: HDL CHOL ATP-III CLASSIFICATION Cardiovascular Risk HDL > or equal to 60 mg/dL LOW HDL < 40 mg/dL HIGH Performed By: #### C BC, BMP, PHOS, MG #### [address] Cholesterol.total/Cho lesterol in HDL [Mass ratio] 4.0 {ratio} Normal <5.0 [facility] Comment on above: Result Comment: PERF ORMED BY: [place] [address] PATHOLOGIST PROTOZOOLOGY TEACHER JAMAAL MO M.D. Performed By: #### C BC, BMP, PHOS, MG #### [address] LDL Cholesterol,Calculate d 100 mg/dL Normal 0-100 [facility] Comment on above: Result Comment: LDL ATP III CLASSIFICATION LDL less than 100 mg/dL Optimal LDL 100-129 mg/dL Near or above optimal LDL 130-159 mg/dL Borderline high LDL 160-189 mg/dL High LDL greater than 189 mg/dL Very high Performed By: #### C BC, BMP, PHOS, MG #### [address] Triglyceride w/Reflex 67 mg/dL Normal 0-149 [facility] Comment on above: Result Comment: TRIG ATP III CLASSIFICATION TRIG less than 150 mg/dL Normal TRIG 150-199 mg/dL Borderline high TRIG 200-500 mg/dL High TRIG greater than 500 mg/dL Very high Standard traceable to the Center for Disease Conrtrol and Prevention (CDC) test method. Performed By: #### C BC, BMP, PHOS, MG #### [address] VLDL CHOLESTEROL 13 mg/dL Normal [facility] Comment on above: Performed By: #### C BC, BMP, PHOS, MG #### [facility] [address] [place] [id number] [facility] Lymphocytes Auto (Bld) [#/Vo l]Ordered By: Jonna Perry on 03-08-2023 Lymphocytes (Bld) [#/Vol] N/A [facility] Lymphocytes/100 WBC Auto (Bl d)Ordered By: Jonna Perry on 03-08-2023 Lymphocytes/100 WBC (Bld) N/A [facility] Lymphocytes/100 WBC Manual c nt (Bld)Ordered By: Jonna Perry on 03-08-2023 Lymphocytes/100 WBC (Bld) 16 % 18-42 [facility] MCH Auto (RBC) [Entitic mass ]Ordered By: Jonna Perry on 03-08-2023 MCH (RBC) [Entitic mass] 29.0 pg 24.7-34.3 [facility] MCHC Auto (RBC) [Mass/Vol]Or dered By: Jonna Perry on 03-08-2023 MCHC (RBC) [Mass/Vol] 33.6 g/dL 32.0-35.0 [facility] MCV Auto (RBC) [Entitic vol] Ordered By: Jonna Perry on 03-08-2023 MCV (RBC) [Entitic vol] 86.2 fL 80-100 [facility] Metamyelocytes/100 WBC Manua l cnt (Bld)Ordered By: Jonna Perry on 03-08-2023 Metamyelocytes/100 WBC (Bld) 1 % 0-0 [facility] Monocytes Auto (Bld) [#/Vol] Ordered By: Jonna Perry on 03-08-2023 Monocytes (Bld) [#/Vol] N/A [facility] Monocytes/100 WBC Auto (Bld) Ordered By: Jonna Perry on 03-08-2023 Monocytes/100 WBC (Bld) N/A [facility] Monocytes/100 WBC Manual cnt (Bld)Ordered By: oJnna Perry on 03-08-2023 Monocytes/100 WBC (Bld) 3 % 2-11 [facility] Neutrophils Auto (Bld) [#/Vo l]Ordered By: Jonna Perry on 03-08-2023 Neutrophils (Bld) [#/Vol] N/A [facility] Neutrophils/100 WBC Auto (Bl d)Ordered By: Jonna Perry on 03-08-2023 Neutrophils/100 WBC (Bld) N/A [facility] No Panel InformationOrdered By: Jonna Perry on 03-08-2023 Estimated GFR (CKD-EPI) 48.665 mL/Min [facility] Creatinine Clearance (Chem N/A [facility] No Panel Informationon 03-08 32.0\S\32.0 Normal 25.1-36.5 [facility] Work Phone: Comment on above: PERFORMED BY:[facility] [place], [place] [phone] MEDICAL DIRECTORJAMAAL MO M.D. 1.1\S\1.1 Normal [facility] Work Phone: Comment on [...] valves: 3 - 4.5 12.2\S\12.2 Normal 9.0-12.9 [facility] Work Phone: 9.0\S\9.0 Normal 6.3-10.7 [facility] Work Phone: 33.1\S\33.1 above high threshold 21.0-31.0 [facility] Work Phone: 104\S\104 Normal 98-107 [facility] Work Phone: 5.1\S\5.1 Normal 3.5-5.1 [facility] Work Phone: 141\S\141 Normal 136-145 [facility] 250 DO Work Phone: 21\S\21 Normal 7-25 [facility] 250 DO Work Phone: [phone] 48.665\S\48.665 Normal [facility] 250 DO Work Phone: [phone] 1.14\S\1.14 Normal 0.60-1.20 [facility] 250 DO Work Phone: 4.0\S\4.0 Normal <5.0 [facility] 250 DO Work Phone: Comment on above: PERFORMED BY:[place] [id number] [address] [place], [place] [phone] MEDICAL DIRECTORJAMAAL MO M.D. 13\S\13 Normal [facility] uL melton 250 DO Work Phone: 67\S\67 Normal 0-149 [facility] Lu melton 250 DO Work Phone: Comment on above: TRIG ATP III CLASSIF ICATION TRIG less than 150 mg/dL Normal TRIG 150-199 mg/dL Borderline high TRIG 200-500 mg/dL High TRIG greater than 500 mg/dL Very high Standard traceable to the Center for Disease Conrtrol and Prevention (CDC) test method. 38\S\38 Normal 35-85 [facility] Lu y 250 DO Work Phone: Comment on above: HDL CHOL ATP-III CLA SSIFICATION Cardiovascular Risk HDL > or equal to 60 mg/dL LOW HDL < 40 mg/dL HIGH 74\S\74 above high threshold 50-70 [facility] Lu y 250 DO Work Phone: 276\S\276 Normal 150-450 [facility] Lu melton 250 DO Work Phone: 14.1\S\14.1 Normal 11.9-15.3 [facility] [facility] 250 DO Work Phone: [phone] 33.6\S\33.6 Normal 32.0-35.0 -Merged With [facility] [facility] 250 DO Work Phone: [phone] 29.0\S\29.0 Normal 24.7-34.3 [facility] [facility] 250 DO Work Phone: [phone] 1\S\1 above high threshold 0-0 -Merged With [facility] [facility] 250 DO Work Phone: [phone] 0\S\0 Normal 0-2 -Merged With [facility] [facility] 250 DO Work Phone: [phone] 2\S\2 Normal 1-3 -Merged With [facility] [facility] 250 DO Work Phone: [phone] 3\S\3 Normal 2-11 -Merged With [facility] [facility] 250 DO Work Phone: [phone] 16\S\16 below low threshold 18-42 -Merged With [facility] [facility] 250 DO Work Phone: [phone] 4\S\4 Normal 0-5 -Merged With [facility] [facility] 250 DO Work Phone: [phone] Slight Normal [facility] [facility] 250 DO Work Phone: Comment on above: PERFORMED BY:[place] [address] [address] [place], [place] [phone] MEDICAL DIRECTORJAMAAL MO M.D. Normal Normal Normal [facility] [facility] 250 DO Work Phone: [phone] 86.2\S\86.2 Normal 80-100 -Merged With [facility] [facility] 250 DO Work Phone: [phone] 30.7\S\30.7 below low threshold 34.0-46.4 [facility] [facility] 250 DO Work Phone: [phone] 10.3\S\10.3 below low threshold 11.8-15.4 -Merged With [facility] [facility] 250 DO Work Phone: 3.56\S\3.56 below low threshold 3.60-5.00 -Merged With [facility] 250 DO Work Phone: 8.6\S\8.6 Normal 3.8-11.6 [facility] [facility] 250 DO Work Phone: 6.2\S\6.2 Normal 3.8-11.6 [facility] 250 DO Work Phone: Nucleated erythrocytes [Pres ence] in Blood by Automated countOrdered By: Jonna Perry on 03-08-2023 Nucleated RBC Auto Ql (Bld) N/A [facility] Ovalocyte detectionOrdered B y: Jonna Perry on 03-08-2023 Ovalocytes LM Ql (Bld) Slight [facility] Platelet adequacy [Presence] in Blood by Light microscopyOrdered By: Jonna Perry on 03-08-2023 Platelets LM Ql (Bld) Normal Normal [facility] Platelet mean volume Auto (B ld) [Entitic vol]Ordered By: Jonna Perry on 03-08-2023 Platelet mean volume (Bld) [Entitic vol] 9.0 fL 6.3-10.7 [facility] Platelet morphology finding [Identifier] in BloodOrdered By: Jonna Perry on 03-08-2023 Platelet morphology finding Nom (Bld) N/A [facility] Platelet poor plasma interna tional normalized ratio (INR) by coagulation assay (relatOrdered By: Jonna Perry on 03-08-2023 INR Coag (PPP) [Relative time] 1.1 {INR} [facility] Comment on above: INR Therapeutic Rang e [...] Platelets Auto (Bld) [#/Vol] Ordered By: Jonna Perry on 03-08-2023 Platelets (Bld) [#/Vol] 276 10*3/uL 150-450 [facility] Platelets Large [Presence] i n Blood by Light microscopyOrdered By: Jonna Perry on 03-08-2023 Platelets Large LM Ql (Bld) Slight [facility] Poikilocytosis [Presence] in Blood by Light microscopyOrdered By: Jonna Perry on 03-08-2023 Poikilocytosis LM Ql (Bld) Slight [facility] Potassium [Moles/volume] in Serum or PlasmaOrdered By: Jonna Perry on 03-08-2023 Potassium [Moles/Vol] 5.1 mmol/L 3.5-5.1 [facility] RBC Auto (Bld) [#/Vol]Ordere d By: Jonna Perry on 03-08-2023 RBC (Bld) [#/Vol] 3.56 10*6/uL 3.60-5.00 [facility] RBC morphologyOrdered By: Jonna Perry on 03-08-2023 RBC morphology finding Nom (Bld) N/A [facility] Segmented neutrophils/100 WB C Manual cnt (Bld)Ordered By: Jonna Perry on 03-08-2023 Segmented neutrophils/100 WBC (Bld) 74 % 50-70 [facility] Serum or plasma anion gap de terminationOrdered By: Jonna Perry on 03-08-2023 Anion gap [Moles/Vol] 9.0 mmol/L 6.0-15.0 [facility] Serum or plasma high density lipoprotein (HDL) cholesterol measurementOrdered By: Jonna Perry on 03-08-2023 Cholesterol in HDL [Mass/Vol] 38 mg/dL 35-85 [facility] Comment on above: HDL CHOL ATP-III CLA SSIFICATION Cardiovascular RiskHDL > or equal to 60 mg/dL LOWHDL < 40 mg/dL HIGH Serum or plasma total choles terol/high density lipoprotein (HDL) cholesterol mass ratOrdered By: Jonna Perry on 03-08-2023 Cholesterol.total/Cho lesterol in HDL [Mass ratio] 4.0 {ratio} <5.0 [facility] Sodium [Moles/volume] in Ser um or PlasmaOrdered By: Jonna Perry on 03-08-2023 Sodium [Moles/Vol] 141 mmol/L 136-145 [facility] Triglyceride [Mass/volume] i n Serum or PlasmaOrdered By: Jonna Perry on 03-08-2023 Triglyceride [Mass/Vol] 67 mg/dL 0-149 [facility] Comment on above: TRIG ATP III CLASSIF ICATIONTRIG less than 150 mg/dL NormalTRIG 150-199 mg/dL Borderline highTRIG 200-500 mg/dL High TRIG greater than 500 mg/dL Very highStandard traceable to the Center for Disease Conrtrol and Prevention (CDC) test method. Urea nitrogen [Mass/volume] in Serum or PlasmaOrdered By: Jonna Perry on 03-08-2023 Urea nitrogen [Mass/Vol] 21 mg/dL 7-25 [facility] WBC Auto (Bld) [#/Vol]Ordere d By: Jonna Perry on 03-08-2023 WBC (Bld) [#/Vol] 8.6 10*3/uL 3.8-11.6 [facility] Office Visit (Cardiology)on 03-07-2023 Follow-up visit [...] Cardiac Catherization; Status:Active - Retrospective Authorization; Requested for:07Mar2023; Angina, class III, Hyperlipemia Start: Aspirin 81 [...] associated with accelerated hypertension, was admitted to [facility], diuresed approximately 14 pounds with diuretics. She [...] 1 coffee at hs Former smoker (V15.82) (Z87.891) 1997 No alcohol use No illicit drug [...] negative for complaint. Vitals Vital Signs Recorded: [id number] 10:14AMRecorded: [id number] 10:04AM [id number], RUE, [id number] (more content not included)... Normal [employer] Tobacco Screening.on 023 Adult depression screening assessment No [facility] 250 DO Work Phone: Fall risk assessment a) No falls within the last year [facility] 250 DO Work Phone: Tobacco use status CPHS b) No [facility] 250 DO Work Phone: CBC AUTO DIFFon 03-01-2023 BASO # 0.0 103/ul Normal 0.0-0.1 [facility] Comment on above: Performed By: #### C BC #### [facility] [address] [address] [address] Jose David Shanks Basophils/100 WBC (Bld) 0.5 % Normal 0.2-2.0 [facility] Comment on above: Performed By: #### C BC #### [facility] [address] [place] [address] Dr. Jose David Shanks EO # 0.1 103/ul Normal 0.0-0.7 [facility] Comment on above: Performed By: #### C BC #### [facility] [address] [place] [address] Dr. Jose David Shanks Eosinophils/100 WBC (Bld) 1.2 % Normal 0.9-7.0 [facility] Comment on above: Performed By: #### C BC #### [facility] [address] [place] [address] Dr. Jose David Shanks Erythrocyte distribution width (RBC) [Ratio] 13.2 % Normal 11.0-15.0 [facility] Comment on above: Performed By: #### C BC #### [facility] [address] [place] [address] Dr. Jose David Shanks Hematocrit (Bld) [Volume fraction] 33.9 % Critically low 36.0-48.0 [facility] Comment on above: Performed By: #### C BC #### [facility] [address] [place] [address] Dr. Jose David Shanks Hemoglobin (Bld) [Mass/Vol] 11.0 g/dL Critically low 12.0-16.0 [facility] Comment on above: Performed By: #### C BC #### [facility] [address] [place] [address] Dr. Jose David Shanks IG # 0.03 10e3/ul Normal 0.00-0.03 [facility] Comment on above: Performed By: #### C BC #### [facility] [address] [place] [address] Dr. Jose David Shanks IG % 0.5 % Normal 0.0-0.5 [facility] Comment on above: Performed By: #### C BC #### [facility] [address] [place] [address] Dr. Jose David Shanks LYMPH # 0.8 103/ul Critically low 1.2-3.8 [facility] Comment on above: Performed By: #### C BC #### [facility] [address] [place] [address] Dr. Jose David Shanks Lymphocytes/100 WBC (Bld) 13.7 % Critically low 20.5-60.0 [facility] Comment on above: Performed By: #### C BC #### [facility] [address] [place] [address] Dr. Jose David Shanks MANUAL DIFF REQ NO Normal [facility] Comment on above: Performed By: #### C BC #### [facility] [address] [place] [address] Dr. Jose David Shanks MCH (RBC) [Entitic mass] 28.9 pg Normal 26.7-34.0 [facility] Comment on above: Performed By: #### C BC #### [facility] [address] [place] [address] Dr. Jose David Shanks MCHC (RBC) [Mass/Vol] 32.4 g/dL Normal 29.9-35.2 [facility] Comment on above: Performed By: #### C BC #### [facility] [address] [place] [address] Dr. Jose David Shanks MCV (RBC) [Entitic vol] 89.0 fL Normal 81.0-99.0 [facility] Comment on above: Performed By: #### C BC #### [facility] [address] [place] [address] Dr. Jose David Shanks MONO # 0.5 103/ul Normal 0.3-0.8 [facility] Comment on above: Performed By: #### C BC #### [facility] [address] [place] [address] Dr. Jose David Shanks Monocytes/100 WBC (Bld) 8.2 % Normal 1.7-12.0 [facility] Comment on above: Performed By: #### C BC #### [facility] [address] [place] [address] Dr. Jose David Shanks NEUT # 4.3 103/ul Normal 1.4-6.5 [facility] Comment on above: Performed By: #### C BC #### [facility] [address] [address] [address] Jose David Shanks Neutrophils/100 WBC (Bld) 75.9 % Critically high 43.0-75.0 [facility] Comment on above: Performed By: #### C BC #### [facility] [address] [place] [address] Dr. Jose David Shanks Platelet mean volume (Bld) [Entitic vol] 10.1 fL Normal 9.5-13.5 [facility] Comment on above: Performed By: #### C BC #### [facility] [address] [place] [address] Dr. Jose David Shanks PLT 279 103/ul Normal 150-450 [facility] Comment on above: Performed By: #### C BC #### [facility] [address] [place] [address] Dr. Jose David Shanks RBC 3.81 106/ul Critically low 4.20-5.40 [facility] Comment on above: Performed By: #### C BC #### [facility] [address] [place] [address] Dr. Jose David Shanks WBC 5.7 103/ul Normal 4.0-11.0 [facility] Comment on above: Performed By: #### C BC #### [facility] [address] [place] [address] Dr. Jose David Shanks FERRITINon 03-01-2023 Ferritin [Mass/Vol] 180.0 ng/mL Normal 8.0-252.0 [facility] Comment on above: Performed By: #### C BC #### [facility] [address] [place] [address] Dr. Jose David Shanks IRON AND TIBCon 03-01-2023 % SATURATION 23.6 % Normal [facility] Comment on above: Performed By: #### C BC #### [facility] [address] [place] [address] Dr. Jose David Shanks Iron [Mass/Vol] 61.0 ug/dL Normal 50.0-170.0 [facility] Comment on above: Performed By: #### C BC #### [facility] [address] [place], [place] [address] Dr. Jose David Shanks TIBC DIRECT 258.0 ug/dL Normal 250.0-450.0 [facility] Comment on above: Performed By: #### C BC #### [facility] [address] [place], [place] [address] Dr. Jose David Shanks NM STRESS/REST MULTIon 03-01 NM STRESS/REST MULTI Patient: GERMANIA JOAQUIN Exam Date: 03/01/2023 : 1940 Gender:F Ordering : DR NATHAN HATHAWAY DDevendra Admission #: [id number] Family : Order #: [id number] CLICK HERE TO VIEW EXAM RADIOLOGY REPORT [...] STUDY: PERFUSION DEFECT: LOCATION: Mid-anterior. Apical anterior. [place]. SIZE: Medium (3-4 segments). SEVERITY: Moderate. TYPE: [...] secondary to EKG changes Dictated by: William Dominguez MD on 03/01/2023 at 14:49 Approved by: William Dominguez MD on 03/01/2023 at 14:54 Normal [facility] PROF CHEM 8 (BAS METB)on Anion gap [Moles/Vol] 8.8 mmol/L Normal [facility] Comment on above: Performed By: #### L ACT #### [facility] [address] [address] [address] Jose David Shanks Calcium [Mass/Vol] 9.0 mg/dL Normal 8.5-10.1 [facility] Comment on above: Performed By: #### L ACT #### [facility] [address] [address] [address] Jose David Shanks Chloride [Moles/Vol] 106 mmol/L Normal 98-107 [facility] Comment on above: Performed By: #### L ACT #### [facility] [address] [address] [address] Jose David Shanks CO2 [Moles/Vol] 31.0 mmol/L Normal 21.0-32.0 [facility] Comment on above: Performed By: #### L ACT #### [facility] [address] [address] [address] Jose David Shanks Creatinine [Mass/Vol] 1.18 mg/dL Critically high 0.55-1.02 [facility] Comment on above: Performed By: #### L ACT #### [facility] [address] [address] [address] Jose David Shanks EGFR-AF IRISH 53 mL/min/1.73m2 Critically low >=60 [facility] Comment on above: Performed By: #### L ACT #### [facility] [address] [address] [address] Jose David Shanks EGFR-NON AF IRISH 44 mL/min/1.73m2 Critically low >=60 [facility] Comment on above: Performed By: #### L ACT #### [facility] [address] [address] [address] Jose David Shanks Glucose [Mass/Vol] 98 mg/dL Normal 74-106 [facility] Comment on above: Performed By: #### L ACT #### [facility] [address] [address] [address] Jose David Shanks Potassium [Moles/Vol] 4.8 mmol/L Normal 3.5-5.1 [facility] Comment on above: Performed By: #### L ACT #### [facility] [address] [place] [address] Dr. Jose David Shanks Sodium [Moles/Vol] 141 mmol/L Normal 136-145 [facility] Comment on above: Performed By: #### L ACT #### [facility] [address] [place] [address] Dr. Jose David Shanks Urea nitrogen [Mass/Vol] 16.0 mg/dL Normal 7.0-18.0 [facility] Comment on above: Performed By: #### L ACT #### [facility] [address] [place] [address] Dr. Jose David Shanks Urea nitrogen/Creatinine [Mass ratio] 13.6 mg/mg Normal [facility] Comment on above: Performed By: #### L ACT #### [facility] [address] [place] [address] Dr. Jose David Shanks RETICULOCYTEon 03-01-2023 RETIC 1.51 % Normal 0.60-3.10 [facility] Comment on above: Performed By: #### C BC #### [facility] [address] [place] [address] Dr. Jose David Shanks VIT B12 AND FOLATEon 023 Cobalamin (Vitamin B12) [Mass/Vol] 1406.0 pg/mL Critically high 193.0-986.0 [facility] Comment on above: Performed By: #### C BC #### [facility] [address] [place] [address] Dr. Jose David Shanks FOLATE 19.00 ng/mL Normal 8.60-58.90 [facility] Comment on above: Performed By: #### C BC #### [facility] [address] [place] [address] Dr. Jose David Shanks CBC AUTO DIFFon 02-09-2023 BASO # 0.0 103/ul Normal 0.0-0.1 [facility] Comment on above: Performed By: #### C BC #### [facility] [address] [place] [address] Dr. Jose David Shanks Basophils/100 WBC (Bld) 0.6 % Normal 0.2-2.0 [facility] Comment on above: Performed By: #### C BC #### [facility] [address] [place] [address] Dr. Jose David Shanks EO # 0.1 103/ul Normal 0.0-0.7 [facility] Comment on above: Performed By: #### C BC #### [facility] [address] [place] [address] Dr. Jose David Shanks Eosinophils/100 WBC (Bld) 2.7 % Normal 0.9-7.0 [facility] Comment on above: Performed By: #### C BC #### [facility] [address] [place] [address] Dr. Jose David Shanks Erythrocyte distribution width (RBC) [Ratio] 13.5 % Normal 11.0-15.0 [facility] Comment on above: Performed By: #### C BC #### [facility] [address] [place] [address] Dr. Jose David Shanks Hematocrit (Bld) [Volume fraction] 30.0 % Critically low 36.0-48.0 [facility] Comment on above: Performed By: #### C BC #### [facility] [address] [place] [address] Dr. Jose David Shanks Hemoglobin (Bld) [Mass/Vol] 10.0 g/dL Critically low 12.0-16.0 [facility] Comment on above: Performed By: #### C BC #### [facility] [address] [place] [address] Dr. Jose David Shanks IG # 0.02 10e3/ul Normal 0.00-0.03 [facility] Comment on above: Performed By: #### C BC #### [facility] [address] [place] [address] Dr. Jose David Shanks IG % 0.4 % Normal 0.0-0.5 [facility] Comment on above: Performed By: #### C BC #### [facility] [address] [place] [address] Dr. Jose David Shanks LYMPH # 0.9 103/ul Critically low 1.2-3.8 [facility] Comment on above: Performed By: #### C BC #### [facility] [address] [place] [address] Dr. Jose David Shanks Lymphocytes/100 WBC (Bld) 19.3 % Critically low 20.5-60.0 [facility] Comment on above: Performed By: #### C BC #### [facility] [address] [place] [address] Dr. Jose David Shanks MANUAL DIFF REQ NO Normal [facility] Comment on above: Performed By: #### C BC #### [facility] [address] [place] [address] Dr. Jose David Shanks MCH (RBC) [Entitic mass] 29.3 pg Normal 26.7-34.0 [facility] Comment on above: Performed By: #### C BC #### [facility] [address] [place] [address] Dr. Jose David Shanks MCHC (RBC) [Mass/Vol] 33.3 g/dL Normal 29.9-35.2 [facility] Comment on above: Performed By: #### C BC #### [facility] [address] [place] [address] Dr. Jose David Shanks MCV (RBC) [Entitic vol] 88.0 fL Normal 81.0-99.0 [facility] Comment on above: Performed By: #### C BC #### [facility] [address] [place] [address] Dr. Jose David Shanks MONO # 0.4 103/ul Normal 0.3-0.8 [facility] Comment on above: Performed By: #### C BC #### [facility] [address] [place] [address] Dr. Jose David Shanks Monocytes/100 WBC (Bld) 8.3 % Normal 1.7-12.0 [facility] Comment on above: Performed By: #### C BC #### [facility] [address] [place] [address] Dr. Jose David Shanks NEUT # 3.3 103/ul Normal 1.4-6.5 [facility] Comment on above: Performed By: #### C BC #### [facility] [address] [place] [address] Dr. Jose David Shanks Neutrophils/100 WBC (Bld) 68.7 % Normal 43.0-75.0 [facility] Comment on above: Performed By: #### C BC #### [facility] [address] [place] [address] Dr. Jose David Shanks Platelet mean volume (Bld) [Entitic vol] 9.9 fL Normal 9.5-13.5 [facility] Comment on above: Performed By: #### C BC #### [facility] [address] [place] [address] Dr. Jose aDvid Shanks PLT 259 103/ul Normal 150-450 [facility] Comment on above: Performed By: #### C BC #### [facility] [address] [place] [address] Dr. Jose David Shanks RBC 3.41 106/ul Critically low 4.20-5.40 [facility] Comment on above: Performed By: #### C BC #### [facility] [address] [place] [address] Dr. Jose David Shanks WBC 4.8 103/ul Normal 4.0-11.0 [facility] Comment on above: Performed By: #### C BC #### [facility] [address] [place] [address] Dr. Jose David Shanks PROF CHEM 8 (BAS METB)on Anion gap [Moles/Vol] 11.7 mmol/L Normal [facility] Comment on above: Performed By: #### L ACT #### [facility] [address] [place] [address] Dr. Jose David Shanks Calcium [Mass/Vol] 8.6 mg/dL Normal 8.5-10.1 [facility] Comment on above: Performed By: #### L ACT #### [facility] [address] [place] [address] Dr. Jose David Shanks Chloride [Moles/Vol] 107 mmol/L Normal 98-107 [facility] Comment on above: Performed By: #### L ACT #### [facility] [address] [place] [address] Dr. Jose David Shanks CO2 [Moles/Vol] 30.9 mmol/L Normal 21.0-32.0 [facility] Comment on above: Performed By: #### L ACT #### [facility] [address] [address] [address] Jose David Shanks Creatinine [Mass/Vol] 1.04 mg/dL Critically high 0.55-1.02 [facility] Comment on above: Performed By: #### L ACT #### [facility] [address] [place] [address] Dr. Jose David Shanks EGFR-AF IRISH >60 Normal >=60 [facility] Comment on above: Performed By: #### L ACT #### [facility] [address] [place] [address] Dr. Jose David Shanks EGFR-NON AF IRISH 51 mL/min/1.73m2 Critically low >=60 [facility] Comment on above: Performed By: #### L ACT #### [facility] [address] [place] [address] Dr. Jose David Shanks Glucose [Mass/Vol] 97 mg/dL Normal 74-106 [facility] Comment on above: Performed By: #### L ACT #### [facility] [address] [place] [address] Dr. Jose David Shanks Potassium [Moles/Vol] 3.6 mmol/L Normal 3.5-5.1 [facility] Comment on above: Performed By: #### L ACT #### [facility] [address] [place] [address] Dr. Jose David Shanks Sodium [Moles/Vol] 146 mmol/L Critically high 136-145 [facility] Comment on above: Performed By: #### L ACT #### [facility] [address] [address] [address] Jose David Shanks Urea nitrogen [Mass/Vol] 17.0 mg/dL Normal 7.0-18.0 [facility] Comment on above: Performed By: #### L ACT #### [facility] [address] [address] [address] Jose David Shanks Urea nitrogen/Creatinine [Mass ratio] 16.3 mg/mg Normal [facility] Comment on above: Performed By: #### L ACT #### [facility] [address] [address] [address] Jose David Shanks XR CHEST 2 [...] EDWARD MENA Date: 2023-02-09 15:56 Normal [facility] BNPon 02-08-2023 Natriuretic peptide B (Bld) [Mass/Vol] 1007.0 pg/mL Normal <=1,800.0 [facility] Comment on above: Performed By: #### B ANALYTICS ARCHITECT #### [facility] [address] [place] [address] Dr. Jose David Shanks CARDIAC TALI 3-6on 3 CK [Catalytic activity/Vol] 29 U/L Normal 26-192 [facility] Comment on above: Performed By: #### C MREP #### [facility] [address] [place] [address] Dr. Jose David Shanks CK.MB [Mass/Vol] 0.90 ng/mL Normal <=3.60 [facility] Comment on above: Performed By: #### C MREP #### [facility] [address] [address] [address] Jose David Shanks HSTROP 69.4 pg/mL Critically high 4.0-51.3 [facility] Comment on above: Result Comment: CUT- OFF POINTS HAVE BEEN ESTABLISHED BASED ON THE FOURTH UNIVERSAL DEFINITIONS OF MYOCARDIAL INFARCTION. THE UPPER REFERENCE LIMIT (URL) OF TROPONIN, DEFINED THE 99TH PERCENTILE OF cTnI DISTRIBUTION IN A REFERENCE POPULATION, HAS BEEN CONFIRMED THE DECISION THRESHOLD FOR [place] DIAGNOSIS. Performed By: #### C MREP #### [facility] [address] [address] [address] Jose David Shanks CK [Catalytic activity/Vol] 23 U/L Critically low 26-192 [facility] Comment on above: Performed By: #### C MREP #### [facility] [address] [place] [address] Dr. Jose David Shanks CK.MB [Mass/Vol] ng/mL Normal <=3.60 [facility] Comment on above: Performed By: #### C MREP #### [facility] [address] [place] [address] Dr. Jose David Shanks HSTROP 72.0 pg/mL Critically high 4.0-51.3 [facility] Comment on above: Result Comment: CUT- OFF POINTS HAVE BEEN ESTABLISHED BASED ON THE FOURTH UNIVERSAL DEFINITIONS OF MYOCARDIAL INFARCTION. THE UPPER REFERENCE LIMIT (URL) OF TROPONIN, DEFINED THE 99TH PERCENTILE OF cTnI DISTRIBUTION IN A REFERENCE POPULATION, HAS BEEN CONFIRMED THE DECISION THRESHOLD FOR MN DIAGNOSIS. Performed By: #### C MREP #### [facility] [address] [address] [address] Jose David Shanks CARDIAC TALI ADMITon 023 CK [Catalytic activity/Vol] 31 U/L Normal 26-192 [facility] Comment on above: Performed By: #### C MADKg, BMP #### [facility] [address] [address] [address] Jose David Shanks CK.MB [Mass/Vol] ng/mL Normal <=3.60 [facility] Comment on above: Performed By: #### C ABHIJITM, BMP #### [facility] [address] [address] [address] Jose David Shanks HSTROP 26.3 pg/mL Normal 4.0-51.3 [facility] Comment on above: Result Comment: CUT- OFF POINTS HAVE BEEN ESTABLISHED BASED ON THE FOURTH UNIVERSAL DEFINITIONS OF MYOCARDIAL INFARCTION. THE UPPER REFERENCE LIMIT (URL) OF TROPONIN, DEFINED THE 99TH PERCENTILE OF cTnI DISTRIBUTION IN A REFERENCE POPULATION, HAS BEEN CONFIRMED THE DECISION THRESHOLD FOR [place] DIAGNOSIS. Performed By: #### C ABHIJITM, BMP #### [facility] [address] [place] [address] Dr. Jose David Shanks MAMI 52 ng/mL Normal 9-82 [facility] Comment on above: Performed By: #### C ABHIJITM, BMP #### [facility] [address] [place] [address] Dr. Jose David Shanks CBC AUTO DIFFon 02-08-2023 BASO # 0.0 103/ul Normal 0.0-0.1 [facility] Comment on above: Performed By: #### L ACT #### [facility] [address] [place] [address] Dr. Jose David Shanks Basophils/100 WBC (Bld) 0.3 % Normal 0.2-2.0 [facility] Comment on above: Performed By: #### L ACT #### [facility] [address] [place] [address] Dr. Jose David Shanks EO # 0.1 103/ul Normal 0.0-0.7 [facility] Comment on above: Performed By: #### L ACT #### [facility] [address] [place] [address] Dr. Jose David Shanks Eosinophils/100 WBC (Bld) 0.5 % Critically low 0.9-7.0 [facility] Comment on above: Performed By: #### L ACT #### [facility] [address] [place] [address] Dr. Jose David Shanks Erythrocyte distribution width (RBC) [Ratio] 13.4 % Normal 11.0-15.0 [facility] Comment on above: Performed By: #### L ACT #### [facility] [address] [place] [address] Dr. Jose David Shanks Hematocrit (Bld) [Volume fraction] 33.0 % Critically low 36.0-48.0 [facility] Comment on above: Performed By: #### L ACT #### [facility] [address] [address] [address] Jose David Shanks Hemoglobin (Bld) [Mass/Vol] 11.1 g/dL Critically low 12.0-16.0 [facility] Comment on above: Performed By: #### L ACT #### [facility] [address] [address] [address] Jose David Shanks IG # 0.06 10e3/ul Critically high 0.00-0.03 [facility] Comment on above: Performed By: #### L ACT #### [facility] [address] [place] [address] Dr. Jose David Shanks IG % 0.5 % Normal 0.0-0.5 [facility] Comment on above: Performed By: #### L ACT #### [facility] [address] [address] [address] Jose David Shanks LYMPH # 0.8 103/ul Critically low 1.2-3.8 [facility] Comment on above: Performed By: #### L ACT #### [facility] [address] [place] [address] Dr. Jose David Shanks Lymphocytes/100 WBC (Bld) 7.0 % Critically low 20.5-60.0 [facility] Comment on above: Performed By: #### L ACT #### [facility] [address] [address] [address] Jose David Shanks MANUAL DIFF REQ NO Normal [facility] Comment on above: Performed By: #### L ACT #### [facility] [address] [address] [address] Jose David Shanks MCH (RBC) [Entitic mass] 29.6 pg Normal 26.7-34.0 [facility] Comment on above: Performed By: #### L ACT #### [facility] [address] [place] [address] Dr. Jose David Shanks MCHC (RBC) [Mass/Vol] 33.6 g/dL Normal 29.9-35.2 [facility] Comment on above: Performed By: #### L ACT #### [facility] [address] [address] [address] Jose David Shanks MCV (RBC) [Entitic vol] 88.0 fL Normal 81.0-99.0 [facility] Comment on above: Performed By: #### L ACT #### [facility] [address] [address] [address] Jose David Shanks MONO # 0.6 103/ul Normal 0.3-0.8 [facility] Comment on above: Performed By: #### L ACT #### [facility] [address] [place] [address] Dr. Jose David Shanks Monocytes/100 WBC (Bld) 5.4 % Normal 1.7-12.0 [facility] Comment on above: Performed By: #### L ACT #### [facility] [address] [address] [address] Jose David Shanks NEUT # 9.9 103/ul Critically high 1.4-6.5 [facility] Comment on above: Performed By: #### L ACT #### [facility] [address] [place] [address] Dr. Jose David Shanks Neutrophils/100 WBC (Bld) 86.3 % Critically high 43.0-75.0 [facility] Comment on above: Performed By: #### L ACT #### [facility] [address] [address] [address] Jose David Shanks Platelet mean volume (Bld) [Entitic vol] 10.1 fL Normal 9.5-13.5 [facility] Comment on above: Performed By: #### L ACT #### [facility] [address] [place] [address] Dr. Jose David Shanks PLT 333 103/ul Normal 150-450 [facility] Comment on above: Performed By: #### L ACT #### [facility] [address] [place] [address] Dr. Jose David Shanks RBC 3.75 106/ul Critically low 4.20-5.40 [facility] Comment on above: Performed By: #### L ACT #### [facility] [address] [address] [address] Jose David Shanks WBC 11.5 103/ul Critically high 4.0-11.0 [facility] Comment on above: Performed By: #### L ACT #### [facility] [address] [place], [place] [address] Dr. Jose David Shanks CULTURE BLOODon 02-08-2023 Microscopic examination of blood, culture Culture Observations: NO GROWTH AT 5 DAYS. Normal [facility] Comment on above: Performed By: #### L ACT #### [facility] [address] [address] [address] Jose David Shanks Microscopic examination of blood, culture Culture Observations: NO GROWTH AT 5 DAYS. Normal [facility] Comment on above: Performed By: #### L ACT #### [facility] [address] [place] [address] Dr. Jose David Shanks ECHOCARDIO M/2D COMPLETEon 0 02-08-2023 ECHOCARDIO M/2D COMPLETE Patient: LASHAUN JOAQUIN Exam Date: 02/08/2023 : 1940 Gender:F Ordering : DR ALLI SCOTT . Admission #: [id number] Family : DR NATHAN HATHAWAY D.O. Order #: [id number] CLICK HERE TO VIEW EXAM ECHOCARDIOGRAM REPORT [...] Payne M.D. on 02/09/2023 at 19:11 Normal [facility] LACTATE/LACTIC ACIDon 2022 Lactate [Moles/Vol] 1.4 mmol/L Normal 0.4-2.0 [facility] Comment on above: Performed By: #### L ACT #### [facility] [address] [place] [address] Dr. Jose David Shanks Lactate [Moles/Vol] 1.4 mmol/L Normal 0.4-2.0 [facility] Comment on above: Performed By: #### L ACT #### [facility] [address] [place] [address] Dr. Jose David Shanks PROF CHEM 8 (BAS METB)on Anion gap [Moles/Vol] 11.9 mmol/L Normal [facility] Comment on above: Performed By: #### C MADM, BMP #### [facility] [address] [place] [address] Dr. Jose David Shanks Calcium [Mass/Vol] 9.0 mg/dL Normal 8.5-10.1 [facility] Comment on above: Performed By: #### C ABHIJITM, BMP #### [facility] [address] [place] [address] Dr. Jose David Shanks Chloride [Moles/Vol] 105 mmol/L Normal 98-107 [facility] Comment on above: Performed By: #### C ELZA, BMP #### [facility] [address] [address] [address] Jose David Shanks CO2 [Moles/Vol] 28.2 mmol/L Normal 21.0-32.0 [facility] Comment on above: Performed By: #### C MADM, BMP #### [facility] [address] [address] [address] Jose David Shanks Creatinine [Mass/Vol] 0.99 mg/dL Normal 0.55-1.02 [facility] Comment on above: Performed By: #### C MADM, BMP #### [facility] [address] [address] [address] Jose David Shanks EGFR-AF IRISH >60 Normal >=60 [facility] Comment on above: Performed By: #### C MADM, BMP #### [facility] [address] [place] [address] Dr. Jose David Shanks EGFR-NON AF IRISH 54 mL/min/1.73m2 Critically low >=60 [facility] Comment on above: Performed By: #### C MADM, BMP #### [facility] [address] [address] [address] Jose David Shanks Glucose [Mass/Vol] 123 mg/dL Critically high 74-[address] [facility] Comment on above: Performed By: #### C MADM, BMP #### [facility] [address] [address] [address] Jose David Shanks Potassium [Moles/Vol] 4.1 mmol/L Normal 3.5-5.1 [facility] Comment on above: Performed By: #### C MADM, BMP #### [facility] [address] [address] [address] Jose David Shanks Sodium [Moles/Vol] 141 mmol/L Normal 136-145 [facility] Comment on above: Performed By: #### C MADM, BMP #### [facility] [address] [address] [address] Jose David Shanks Urea nitrogen [Mass/Vol] 14.0 mg/dL Normal 7.0-18.0 [facility] Comment on above: Performed By: #### C MADM, BMP #### [facility] [address] [place] [address] Dr. Jose David Shanks Urea nitrogen/Creatinine [Mass ratio] 14.1 mg/mg Normal [facility] Comment on above: Performed By: #### C MADM, BMP #### [facility] [address] [place] [address] Dr. Jose David Shanks RESPIRATORY PANEL PLUSon Adenovirus Not detected Normal NOT DETECTED [facility] Comment on above: Performed By: #### R SPLUS #### [facility] [address] [place] [address] Dr. Jose David Pacheco. Parapertusis Not detected Normal NOT DETECTED [facility] Comment on above: Performed By: #### R SPLUS #### [facility] [address] [place] [address] Dr. Jose David Pacheco. Pertussis Not detected Normal NOT DETECTED [facility] Comment on above: Performed By: #### R SPLUS #### [facility] [address] [place] [address] Dr. Jose David Shanks Chlamydia Pneumoniae Not detected Normal NOT DETECTED [facility] Comment on above: Performed By: #### R SPLUS #### [facility] [address] [place] [address] Dr. Jose David Shanks Coronavirus 229E Not detected Normal NOT DETECTED [facility] Comment on above: Performed By: #### R SPLUS #### [facility] [address] [place] [address] Dr. Jose David Shanks Coronavirus HKU1 Not detected Normal NOT DETECTED [facility] Comment on above: Performed By: #### R SPLUS #### [facility] [address] [place] [address] Dr. Jose David Shanks Coronavirus NL63 Not detected Normal NOT DETECTED [facility] Comment on above: Performed By: #### R SPLUS #### [facility] [address] [place] [address] Dr. Jose David Shanks Coronavirus OC43 Not detected Normal NOT DETECTED [facility] Comment on above: Performed By: #### R SPLUS #### [facility] [address] [place] [address] Dr. Jose David Shanks Influenza A H1 Not detected Normal NOT DETECTED [facility] Comment on above: Performed By: #### R SPLUS #### [facility] [address] [place] [address] Dr. Jose David Shanks Influenza A H1 2009 Not detected Normal NOT DETECTED [facility] Comment on above: Performed By: #### R SPLUS #### [facility] [address] [place] [address] Dr. Jose David Shanks Influenza A H3 Not detected Normal NOT DETECTED [facility] Comment on above: Performed By: #### R SPLUS #### [facility] [address] [place] [address] Dr. Jose David Shanks Influenza B Not detected Normal NOT DETECTED [facility] Comment on above: Performed By: #### R SPLUS #### [facility] [address] [place] [address] Dr. Jose David Shanks Metapneumovirus Not detected Normal NOT DETECTED [facility] Comment on above: Performed By: #### R SPLUS #### [facility] [address] [place] [address] Dr. Jose David Shanks Mycoplas. Pneumoniae Not detected Normal NOT DETECTED [facility] Comment on above: Performed By: #### R SPLUS #### [facility] [address] [place] [address] Dr. Jose David Shanks Parainfluenza 1 Not detected Normal NOT DETECTED [facility] Comment on above: Performed By: #### R SPLUS #### [facility] [address] [place] [address] Dr. Jose David Shanks Parainfluenza 2 Not detected Normal NOT DETECTED [facility] Comment on above: Performed By: #### R SPLUS #### [facility] [address] [place] [address] Dr. Jose David Shanks Parainfluenza 3 Not detected Normal NOT DETECTED [facility] Comment on above: Performed By: #### R SPLUS #### [facility] [address] [place], [place] [id number] Dr. Jose David Shanks Parainfluenza 4 Not detected Normal NOT DETECTED [facility] Comment on above: Performed By: #### R SPLUS #### [facility] [address] [place] [address] Dr. Jose David Shanks Rhino/Enterovirus Not detected Normal NOT DETECTED [facility] Comment on above: Performed By: #### R SPLUS #### [facility] [address] [place] [address] Dr. Jose David Shanks RP2 Header 1 RESPIRATORY PANEL: VIRUSES Normal [facility] Comment on above: Performed By: #### R SPLUS #### [facility] [address] [place] [address] Dr. Jose David Shanks RP2 Header 2 RESPIRATORY PANEL: BACTERIA Normal [facility] Comment on above: Performed By: #### R SPLUS #### [facility] [address] [place] [address] Dr. Jose David Shanks RSV Not detected Normal NOT DETECTED [facility] Comment on above: Performed By: #### R SPLUS #### [facility] [address] [place] [address] Dr. Jose David Shanks SARS-CoV-2 (COVID-19) RNA ZABRINA+probe Ql (Unsp spec) Not detected Normal NOT DETECTED [facility] Comment on above: Performed By: #### R SPLUS #### [facility] [address] [place] [address] Dr. Jose David Shanks XR CHEST 1 [...] by: Petra SAHU Date: 2023-02-08 05:21 Normal [facility] MG MAMM SCREEN 3D SCARLETT CADon 01-08-2023 MG MAMM SCREEN 3D SCARLETT CAD Patient: LASHAUN JOAQUIN Exam Date: 01/08/2023 : 1940 Gender:F Ordering : DR NATHAN HATHAWAY D.O. Admission #: [id number] Family : Order #: [id number] CLICK HERE TO VIEW EXAM RADIOLOGY REPORT [...] lung cancer at age 62. LOCATION: [facility] BREAST COMPOSITION: Extremely dense, which [...] LUMP SHOULD BE BIOPSIED. Dictated by: William Dominguez MD on 01/08/2023 at 11:21 Approved by: William Dominguez MD on 01/08/2023 at 11:24 Normal [facility] CNOVSPon 12-04-2022 CNOVSP Visit (SP) Office ([facility]) ----- LASHAUN JOAQUIN ([id number]) 1940 F Date Time Provider Department 12/04/22 [...] lower extremiti (more content not included)... Normal [facility] CBC W Auto Differential pane l (Bld)on 11-27-2022 Basophils (Bld) [#/Vol] 0.04 10*3/uL Normal <0.11 [facility] Comment on above: Order Comment: Speci men Type: BLOOD SPECIMEN Ordering Facility: [facility] Address: [address] [address] Performed By: #### 5 7021-8 #### [facility] CLIA [id number] [address] [place] [address] Basophils/100 WBC (Bld) 0.8 % Normal [facility] Comment on above: Order Comment: Speci men Type: BLOOD SPECIMEN Ordering Facility: [facility] Address: [address] [place] [address] Performed By: #### 5 7021-8 #### [facility] CLIA [id number] [address] [place] [address] Differential cell count method Nom (Bld) Auto Normal [facility] Comment on above: Order Comment: Speci men Type: BLOOD SPECIMEN Ordering Facility: [facility] Address: [address] [place] [address] Performed By: #### 5 7021-8 #### [facility] CLIA [id number] [address] [place] [address] Eosinophils (Bld) [#/Vol] 0.10 10*3/uL Normal <0.46 [facility] Comment on above: Order Comment: Speci men Type: BLOOD SPECIMEN Ordering Facility: [facility] Address: [address] [address] Performed By: #### 5 7021-8 #### [facility] CLIA [id number] [address] [place] [address] Eosinophils/100 WBC (Bld) 2.0 % Normal [facility] Comment on above: Order Comment: Speci men Type: BLOOD SPECIMEN Ordering Facility: [facility] Address: [address] [address] Performed By: #### 5 7021-8 #### [facility] CLIA [id number] [address] [place] [address] 54216 Erythrocyte distribution width (RBC) [Ratio] 13.2 % Normal 11.5-15.0 [facility] Comment on above: Order Comment: Speci men Type: BLOOD SPECIMEN Ordering Facility: [facility] Address: [address] [address] Performed By: #### 5 7021-8 #### [facility] CLIA [id number] [address] [place] [address] 49984 Hematocrit (Bld) [Volume fraction] 33.9 % Low 36.0-46.0 [facility] Comment on above: Order Comment: Speci men Type: BLOOD SPECIMEN Ordering Facility: [facility] Address: [address] [address] Performed By: #### 5 7021-8 #### [facility] CLIA [id number] [address] [place] [address] 23091 Hemoglobin (Bld) [Mass/Vol] 10.9 g/dL Low 11.5-15.5 [facility] Comment on above: Order Comment: Speci men Type: BLOOD SPECIMEN Ordering Facility: [facility] Address: [address] [address] Performed By: #### 5 7021-8 #### [facility] CLIA [id number] [address] [place] [address] 35269 Immature granulocytes (Bld) [#/Vol] 0.04 10*3/uL Normal <0.10 [facility] Comment on above: Order Comment: Speci men Type: BLOOD SPECIMEN Ordering Facility: [facility] Address: [address] [address] Performed By: #### 5 7021-8 #### [facility] CLIA [id number] [address] [place] [address] 65320 Immature granulocytes/100 WBC (Bld) 0.8 % Normal [facility] Comment on above: Order Comment: Speci men Type: BLOOD SPECIMEN Ordering Facility: [facility] Address: [address] [address] Performed By: #### 5 7021-8 #### [facility] CLIA [id number] [address] [place] [address] 46525 Lymphocytes (Bld) [#/Vol] 0.88 10*3/uL Low 1.00-4.00 [facility] Comment on above: Order Comment: Speci men Type: BLOOD SPECIMEN Ordering Facility: [facility] Address: [address] [place] [address] Performed By: #### 5 7021-8 #### [facility] CLIA [id number] [address] [place] [address] 35019 Lymphocytes/100 WBC (Bld) 17.6 % Normal [facility] Comment on above: Order Comment: Speci men Type: BLOOD SPECIMEN Ordering Facility: [facility] Address: [address] [place] [address] Performed By: #### 5 7021-8 #### [facility] CLIA [id number] [address] [place] [address] 62972 MCH (RBC) [Entitic mass] 29.0 pg Normal 26.0-34.0 [facility] Comment on above: Order Comment: Speci men Type: BLOOD SPECIMEN Ordering Facility: [facility] Address: [address] [place] [address] Performed By: #### 5 7021-8 #### [facility] CLIA [id number] [address] [place] [address] 20026 MCHC (RBC) [Mass/Vol] 32.2 g/dL Normal 30.5-36.0 [facility] Comment on above: Order Comment: Speci men Type: BLOOD SPECIMEN Ordering Facility: [facility] Address: [address] [place] [address] Performed By: #### 5 7021-8 #### [facility] CLIA [id number] [address] [place] [address] 14898 MCV (RBC) [Entitic vol] 90.2 fL Normal 80.0-100.0 [facility] Comment on above: Order Comment: Speci men Type: BLOOD SPECIMEN Ordering Facility: [facility] Address: [address] [place] [address] Performed By: #### 5 7021-8 #### [facility] CLIA [id number] [address] [place] [address] 68202 Monocytes (Bld) [#/Vol] 0.56 10*3/uL Normal <0.87 [facility] Comment on above: Order Comment: Speci men Type: BLOOD SPECIMEN Ordering Facility: [facility] Address: [address] [place] [address] Performed By: #### 5 7021-8 #### [facility] CLIA [id number] [address] [place] [address] 92316 Monocytes/100 WBC (Bld) 11.2 % Normal [facility] Comment on above: Order Comment: Speci men Type: BLOOD SPECIMEN Ordering Facility: [facility] Address: [address] [place] [address] Performed By: #### 5 7021-8 #### [facility] CLIA [id number] [address] [place] [address] 88510 Neutrophils (Bld) [#/Vol] 3.39 10*3/uL Normal 1.45-7.50 [facility] Comment on above: Order Comment: Speci men Type: BLOOD SPECIMEN Ordering Facility: [facility] Address: [address] [place] [address] Performed By: #### 5 7021-8 #### [facility] CLIA [id number] [address] [place] [address] 74785 Neutrophils/100 WBC (Bld) 67.6 % Normal [facility] Comment on above: Order Comment: Speci men Type: BLOOD SPECIMEN Ordering Facility: [facility] Address: [address] [address] Performed By: #### 5 7021-8 #### [facility] CLIA [id number] [address] [place] [address] 42484 Nucleated RBC (Bld) [#/Vol] 10*3/uL Normal <0.01 [facility] Comment on above: Order Comment: Speci men Type: BLOOD SPECIMEN Ordering Facility: [facility] Address: [address] [address] Performed By: #### 5 7021-8 #### [facility] CLIA [id number] [address] [place] [address] 88511 Nucleated RBC/100 WBC (Bld) [Ratio] 0.0 /100 WBC Normal [facility] Comment on above: Order Comment: Speci men Type: BLOOD SPECIMEN Ordering Facility: [facility] Address: [address] [address] Performed By: #### 5 7021-8 #### [facility] CLIA [id number] [address] [place] [address] 50738 Platelet mean volume (Bld) [Entitic vol] 9.8 fL Normal 9.0-12.7 [facility] Comment on above: Order Comment: Speci men Type: BLOOD SPECIMEN Ordering Facility: [facility] Address: [address] Performed By: #### 5 7021-8 #### [facility] CLIA [id number] [address] [place] [address] 20155 Platelets (Bld) [#/Vol] 278 10*3/uL Normal 150-400 [facility] Comment on above: Order Comment: Speci men Type: BLOOD SPECIMEN Ordering Facility: [facility] Address: [address] [address] Performed By: #### 5 7021-8 #### [facility] CLIA [id number] [address] [place] [address] 17286 RBC (Bld) [#/Vol] 3.76 10*6/uL Low 3.90-5.20 [facility] Comment on above: Order Comment: Speci men Type: BLOOD SPECIMEN Ordering Facility: [facility] Address: [address] [place] [address] Performed By: #### 5 7021-8 #### [facility] CLIA [id number] [address] [place] [address] 16695 WBC (Bld) [#/Vol] 5.01 10*3/uL Normal 3.70-11.00 [facility] Comment on above: Order Comment: Speci men Type: BLOOD SPECIMEN Ordering Facility: [facility] Address: [address] [place] [address] Performed By: #### 5 7021-8 #### [facility] CLIA [id number] [address] [place] [address] 57339 Comprehensive metabolic 2000 panelon 11-27-2022 Albumin [Mass/Vol] 3.9 g/dL Normal 3.9-4.9 [facility] Comment on above: Order Comment: Speci men Type: BLOOD SPECIMEN Ordering Facility: [facility] Address: [address] [place] [address] Performed By: #### 2 4323-8 #### [facility] CLIA [id number] [address] [place] [address] 61345 ALP [Catalytic activity/Vol] 48 U/L Normal 34-123 [facility] Comment on above: Order Comment: Speci men Type: BLOOD SPECIMEN Ordering Facility: [facility] Address: [address] [place] [address] Performed By: #### 2 4323-8 #### [facility] CLIA [id number] [address] [place] [address] 55604 ALT [Catalytic activity/Vol] 10 U/L Normal 7-38 [facility] Comment on above: Order Comment: Speci men Type: BLOOD SPECIMEN Ordering Facility: [facility] Address: [address] [address] Performed By: #### 2 4323-8 #### [facility] CLIA [id number] [address] [place] [address] 76647 Anion gap [Moles/Vol] 8 mmol/L Low 9-18 [facility] Comment on above: Order Comment: Speci men Type: BLOOD SPECIMEN Ordering Facility: [facility] Address: [address] [address] Performed By: #### 2 4323-8 #### [facility] CLIA [id number] [address] [place] [address] 36818 AST [Catalytic activity/Vol] 14 U/L Normal 13-35 [facility] Comment on above: Order Comment: Speci men Type: BLOOD SPECIMEN Ordering Facility: [facility] Address: [address] [address] Performed By: #### 2 4323-8 #### [facility] CLIA [id number] [address] [place] [address] 49794 Bilirubin [Mass/Vol] 0.4 mg/dL Normal 0.2-1.3 [facility] Comment on above: Order Comment: Speci men Type: BLOOD SPECIMEN Ordering Facility: [facility] Address: [address] [address] Performed By: #### 2 4323-8 #### [facility] CLIA [id number] [address] [place] [address] 19597 Calcium [Mass/Vol] 9.1 mg/dL Normal 8.5-10.2 [facility] Comment on above: Order Comment: Speci men Type: BLOOD SPECIMEN Ordering Facility: [facility] Address: [address] [address] Performed By: #### 2 4323-8 #### [facility] CLIA [id number] [address] [place] [address] 05631 Chloride [Moles/Vol] 104 mmol/L Normal 97-105 [facility] Comment on above: Order Comment: Speci men Type: BLOOD SPECIMEN Ordering Facility: [facility] Address: [address] [address] Performed By: #### 2 4323-8 #### [facility] CLIA [id number] [address] [place] [address] CO2 [Moles/Vol] 30 mmol/L Normal 22-30 [facility] Comment on above: Order Comment: Speci men Type: BLOOD SPECIMEN Ordering Facility: [facility] Address: [address] [address] Performed By: #### 2 4323-8 #### [facility] CLIA [id number] [address] [place] [address] 60577 Creatinine [Mass/Vol] 0.97 mg/dL High 0.58-0.96 [facility] Comment on above: Order Comment: Speci men Type: BLOOD SPECIMEN Ordering Facility: [facility] Address: [address] [address] Performed By: #### 2 4323-8 #### [facility] CLIA [id number] [address] [place] [address] 58655 ESTIMATED GLOMERULAR FILTRATION RATE 59 mL/min/1.73m??? Low >=60 [facility] Comment on above: Order Comment: Speci men Type: BLOOD SPECIMEN Ordering Facility: [facility] Address: [address] [place] [address] Result Comment: Shoshana mated Glomerular Filtration Rate [...] GFR. Performed By: #### 2 4323-8 #### [facility] CLIA [id number] [address] [place] [address] 24576 Glucose [Mass/Vol] 101 mg/dL High 74-99 [facility] Comment on above: Order Comment: Speci men Type: BLOOD SPECIMEN Ordering Facility: [facility] Address: [address] [place] [address] Result Comment: The [place] [employer] (ADA) provides guidance for cutoff [...] Standards of Medical Care in Diabetes 2016, [place] [employer]. Diabetes Care. 2016.39(Suppl 1). Performed By: #### 2 4323-8 #### [facility] CLIA [id number] [address] [place] [address] 40701 Potassium [Moles/Vol] 4.5 mmol/L Normal 3.7-5.1 [facility] Comment on above: Order Comment: Sarathi carey Type: BLOOD SPECIMEN Ordering Facility: [facility] Address: [address] [place] [address] Performed By: #### 2 4323-8 #### [facility] CLIA [id number] [address] [place] [address] 08515 Protein [Mass/Vol] 6.5 g/dL Normal 6.3-8.0 [facility] Comment on above: Order Comment: Speci men Type: BLOOD SPECIMEN Ordering Facility: [facility] Address: [address] [place] [address] Performed By: #### 2 4323-8 #### [facility] CLIA [id number] [address] [place] [address] 15118 Sodium [Moles/Vol] 142 mmol/L Normal 136-144 [facility] Comment on above: Order Comment: Speci men Type: BLOOD SPECIMEN Ordering Facility: [facility] Address: [address] [address] Performed By: #### 2 4323-8 #### [facility] CLIA [id number] [address] [place] [address] 07499 Urea nitrogen [Mass/Vol] 17 mg/dL Normal 7-21 [facility] Comment on above: Order Comment: Speci men Type: BLOOD SPECIMEN Ordering Facility: [facility] Address: [address] [address] Performed By: #### 2 4323-8 #### [facility] CLIA [id number] [address] [place] [address] 33135 IMMUNOFIXATION SCREEN, SERUM on 11-27-2022 MPA RESULT No M protein is identified. Normal No M protein is identified. [facility] Comment on above: Order Comment: Speci men Type: BLOOD SPECIMEN Ordering Facility: [facility] Address: [address] [place] [address] Performed By: #### 5 7021-8 #### [facility] CLIA [id number] [address] [place] [address] 27071 STAFF REVIEW ([facility]) Reviewed by Taqueria Beck MD, Ph.D ([id number]) Normal [facility] Comment on above: Order Comment: Speci men Type: BLOOD SPECIMEN Ordering Facility: [facility] Address: [address] [place] [address] Performed By: #### 5 7021-8 #### [facility] CLIA [id number] [address] [place] [address] 69016 IMMUNOGLOBULINS GAMon 2022 IgA [Mass/Vol] 78 mg/dL Normal 70-400 [facility] Comment on above: Order Comment: Speci men Type: BLOOD SPECIMEN Ordering Facility: [facility] Address: [address] [address] Performed By: #### 2 4323-8 #### [facility] CLIA [id number] [address] [place] [address] 93927 IgG [Mass/Vol] 683 mg/dL Low 700-1600 [facility] Comment on above: Order Comment: Speci men Type: BLOOD SPECIMEN Ordering Facility: [facility] Address: [address] [address] Performed By: #### 2 4323-8 #### [facility] CLIA [id number] [address] [place] [address] 82409 IgM [Mass/Vol] 300 mg/dL High 40-230 [facility] Comment on above: Order Comment: Speci men Type: BLOOD SPECIMEN Ordering Facility: [facility] Address: [address] [address] Performed By: #### 2 4323-8 #### [facility] CLIA [id number] [address] [place] [address] 40824 KAPPA/BOWLES,FREE,SERon 2022 Immunoglobulin light chains.kappa.free (S) [Mass/Vol] 82.2 mg/L High 3.3-19.4 [facility] Comment on above: Order Comment: Speci men Type: BLOOD SPECIMEN Ordering Facility: [facility] Address: [address] [place] [address] Result Comment: Rare ly, increased serum free light chains levels may not be detected or accurately quantified due to prozone phenomenon or in high viscosity samples using this immunoturbidimetric assay. Correlation with other laboratory results and clinical findings is recommended. The [place] Free Light Chain was performed using the Binding Site Optilite immunoturbidimetric method. Result obtained with different assay methods or kits cannot be used interchangeably. Performed By: #### 2 4323-8 #### [facility] CLIA [id number] [address] [place], [place] [address] Immunoglobulin light chains.kappa/Immunogl obulin light chains.lambda (S) [Mass ratio] 4.11 High 0.26-1.65 [facility] Comment on above: Order Comment: Speci men Type: BLOOD SPECIMEN Ordering Facility: [facility] Address: [address] [place] [address] Performed By: #### 2 4323-8 #### [facility] CLIA [id number] [address] [place] [address] 07073 Immunoglobulin light chains.lambda.free [Mass/Vol] 20.0 mg/L Normal 5.7-26.3 [facility] Comment on above: Order Comment: Speci men Type: BLOOD SPECIMEN Ordering Facility: [facility] Address: [address] [place] [address] Result Comment: Rare ly, increased serum free [...] interchangeably. Performed By: #### 2 4323-8 #### [facility] CLIA [id number] [address] [place] [address] 30492 PROTEIN ELECTROPHORESIS SERU M WITH BRANDON (P)on 11-27-2022 Albumin [Mass/Vol] 3.54 g/dL Normal 3.43-5.41 [facility] Comment on above: Order Comment: Speci men Type: BLOOD SPECIMEN Ordering Facility: [facility] Address: [address] [address] Performed By: #### 2 4323-8 #### [facility] CLIA [id number] [address] [place] [address] 66159 Alpha 1 globulin Elph [Mass/Vol] 0.36 g/dL Normal 0.18-0.43 [facility] Comment on above: Order Comment: Speci men Type: BLOOD SPECIMEN Ordering Facility: [facility] Address: [address] [address] Performed By: #### 2 4323-8 #### [facility] CLIA [id number] [address] [place] [address] 11294 Alpha 2 globulin Elph [Mass/Vol] 0.75 g/dL Normal 0.42-0.98 [facility] Comment on above: Order Comment: Speci men Type: BLOOD SPECIMEN Ordering Facility: [facility] Address: [address] [place] [address] Performed By: #### 2 4323-8 #### [facility] CLIA [id number] [address] [place] [address] 82736 Beta globulin Elph [Mass/Vol] 0.59 g/dL Low 0.61-1.17 [facility] Comment on above: Order Comment: Speci men Type: BLOOD SPECIMEN Ordering Facility: [facility] Address: [address] [place] [address] Performed By: #### 2 4323-8 #### [facility] CLIA [id number] [address] [place] [address] 75832 COMMENT (SERUM PROT ELECTRO) Monoclonal Protein analysis (immunofixation) is not indicated. Normal [facility] Comment on above: Order Comment: Speci men Type: BLOOD SPECIMEN Ordering Facility: [facility] Address: [address] [address] Performed By: #### 2 4323-8 #### [facility] CLIA [id number] [address] [place] [address] 92757 Gamma globulin Elph [Mass/Vol] 0.76 g/dL Normal 0.53-1.51 [facility] Comment on above: Order Comment: Speci men Type: BLOOD SPECIMEN Ordering Facility: [facility] Address: [address] [place] [address] Performed By: #### 2 4323-8 #### [facility] CLIA [id number] [address] [place] [address] 40439 M-PROTEIN LOCATION Normal [facility] Comment on above: Order Comment: Speci men Type: BLOOD SPECIMEN Ordering Facility: [facility] Address: [address] [place] [address] Result Comment: Not Applicable. Performed By: #### 2 4323-8 #### [facility] CLIA [id number] [address] [place] [address] 96996 Protein Fractions [Interp] No definitive M protein is identified on protein electrophoresis. Normal No definitive M protein is identified on protein electrophor esis. [facility] Comment on above: Order Comment: Speci men Type: BLOOD SPECIMEN Ordering Facility: [facility] Address: [address] [place] [address] Performed By: #### 2 4323-8 #### [facility] CLIA [id number] [address] [place] [address] 12392 Protein.monoclonal Elph [Mass/Vol] 0.00 g/dL Normal <=0.00 [facility] Comment on above: Order Comment: Speci men Type: BLOOD SPECIMEN Ordering Facility: [facility] Address: [address] [place] [address] Performed By: #### 2 4323-8 #### [facility] CLIA [id number] [address] [place], [place] [address] SPE STAFF REVIEW Reviewed by Milka Bahena MD [facility] Comment on above: Order Comment: Speci men Type: BLOOD SPECIMEN Ordering Facility: [facility] Address: [address] [place] [address] Performed By: #### 2 4323-8 #### [facility] CLIA [id number] [address] [place] [address] 78881 Prot SerPl-mCncon 11-27-2022 Protein [Mass/Vol] 6.0 g/dL Low 6.3-8.0 [facility] Comment on above: Order Comment: Speci men Type: BLOOD SPECIMEN Ordering Facility: [facility] Address: [address] [place] [address] Performed By: #### 2 4323-8 #### [facility] CLIA [id number] [address] [place] [address] HEAD_NECKon 09-11-[address] HEAD_NECK [...] the submandibular gland Electronically authenticated by: WILLIAM DOMINGUEZ Date: 2022-09-11 17:07 Normal [facility] CT Abdomen and Pelvis W cont rast Rivka 08-28-2022 IMPRESSION: 1. Stable CT of the abdomen and pelvis. Stable left adrenal gland nodule. Consider further evaluation with adrenal mass protocol CT. 2. No evidence of abdominal or pelvic lymphadenopathy. 3. Sigmoid diverticulosis without evidence of diverticulitis. Transcribe Date/Time: Aug 28 2022 5:20P Dictated by: KIESHA REYNOSO MD This examination was interpreted and the report reviewed and electronically signed by: KIESHA REYNOSO MD on Aug 28 2022 5:25PM EST Thank you for allowing us to participate in the care of your patient. Should there be any questions regarding this interpretation, please call [phone]. If you are unable to reach us at the number above, please feel free to contact [facility] at [phone]. DIVISION OF RADIOLOGY * * *Final Report* * * DATE OF EXAM: Aug 28 2022 1:36PM 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 TECHNIQUE: CT of the abdomen and pelvis was performed using standard technique, scanning from just above the dome of the diaphragm to the symphysis pubis. MQ: CTAP_3 Contrast: IV: 125 ml of Omnipaque 300 Oral: 450 ml of 50ML Omnipaque [address] Radiation dose: Integrated Dose-length product (DLP) for this visit = 1383 mGy*cm. CT Dose Reduction Employed: Automated exposure control (AEC) COMPARISON: CT performed 08/24/2021 RESULT: Liver: No mass. Biliary: The gallbladder is unremarkable. No biliary ductal dilation is seen. Spleen: No mass. No splenomegaly. Pancreas: No mass or duct dilation. Adrenals: The right adrenal gland is unremarkable. There is a left adrenal nodule measuring 1 x 0.9 cm, similar to prior exam. Kidneys: No renal calculus or hydronephrosis is seen. There is a right renal cyst measuring up to 5.9 cm. Additional subcentimeter hypodensities are noted throughout both kidneys which are too small to definitively characterize, but also likely representing cysts. GI tract: There is a small hiatal hernia. The stomach is otherwise unremarkable. The small bowel is unremarkable without evidence of obstruction or wall thickening. There is sigmoid diverticulosis without evidence of diverticulitis. The colon is otherwise unremarkable. Lymph nodes: No abdominal or pelvic lymphadenopathy. Mesentery/Peritoneum: No ascites or mass. Retroperitoneum: No mass. Vasculature: - Abdominal aorta and iliac arteries: Atherosclerotic calcifications without aneurysm. - Celiac and SMA: Patent without stenosis. - Portal venous system (SMV, splenic vein, portal vein and branches): Patent. - Hepatic veins: Patent. Pelvis: The urinary bladder is unremarkable. No pelvic mass or fluid collection is seen. Bones/Soft Tissues: Degenerative changes noted in the lumbar spine. No destructive osseous lesions are seen. Superficial soft tissues are unremarkable. Lower thorax: A chest CT performed will be reported separately. Protozoology Teacher (topogram) images: No additional findings. DIVISION OF RADIOLOGY Provider, [facility] - 08/28/2022 * * *Final Report* * * DATE OF EXAM: Aug 28 2022 1:36PM 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 TECHNIQUE: CT of the abdomen and pelvis was performed using standard technique, scanning from just above the dome of the diaphragm to the symphysis pubis. MQ: CTAP_3 Contrast: IV: 125 ml of Omnipaque 300 Oral: 450 ml of 50ML Omnipaque [address] Radiation dose: Integrated Dose-length product (DLP) for this visit = 1383 mGy*cm. CT Dose Reduction Employed: Automated exposure control (AEC) COMPARISON: CT performed 08/24/2021 RESULT: Liver: No mass. Biliary: The gallbladder is unremarkable. No biliary ductal dilation is seen. Spleen: No mass. No splenomegaly. Pancreas: No mass or duct dilation. Adrenals: The right adrenal gland is unremarkable. There is a left adrenal nodule measuring 1 x 0.9 cm, similar to prior exam. Kidneys: No renal calculus or hydronephrosis is seen. There is a right renal cyst measuring up to 5.9 cm. Additional subcentimeter hypodensities are noted throughout both kidneys which are too small to definitively characterize, but also likely representing cysts. GI tract: There is a small hiatal hernia. The stomach is otherwise unremarkable. The small bowel is unremarkable without evidence of obstruction or wall thickening. There is sigmoid diverticulosis without evidence of diverticulitis. The colon is otherwise unremarkable. Lymph nodes: No abdominal or pelvic lymphadenopathy. Mesentery/Peritoneum: No ascites or mass. Retroperitoneum: No mass. Vasculature: - Abdominal aorta and iliac arteries: Atherosclerotic calcifications without aneurysm. - Celiac and SMA: Patent without stenosis. - Portal venous system (SMV, splenic vein, portal vein and branches): Patent. - Hepatic veins: Patent. Pelvis: The urinary bladder is unremarkable. No pelvic mass or fluid collection is seen. Bones/Soft Tissues: Degenerative changes noted in the lumbar spine. No destructive osseous lesions are seen. Superficial soft tissues are unremarkable. Lower thorax: A chest CT performed will be reported separately. Protozoology Teacher (topogram) images: No additional findings. IMPRESSION IMPRESSION: 1. Stable CT of the abdomen and pelvis. Stable left adrenal gland nodule. Consider further evaluation with adrenal mass protocol CT. 2. No evidence of abdominal or pelvic lymphadenopathy. 3. Sigmoid diverticulosis without evidence of diverticulitis. Transcribe Date/Time: Aug 28 2022 5:20P Dictated by: KIESHA REYNOSO MD This examination was interpreted and the report reviewed and electronically signed by: KIESHA REYNOSO MD on Aug 28 2022 5:25PM EST Thank you for allowing us to participate in the care of your patient. Should there be any questions regarding this interpretation, please call [phone]. If you are unable to reach us at the number above, please feel free to contact [facility] at [phone]. [facility] CT Abdomen and Pelvis W cont rast IVOrdered By: [facility] Provider on 08-28-[address] [facility] [address] Chest W contrast [place] IMPRESSION: 1. Interval resolution of previously described right upper lobe nodular opacities, likely infectious/inflammatory in nature. 2. Otherwise stable CT of the chest. Stable reticulonodular opacities most prominent in the bilateral upper lobes. Other scattered nodular opacities measuring up to 3 mm, stable. 3. No evidence of bulky intrathoracic adenopathy. Transcribe Date/Time: Aug 28 2022 5:08P Dictated by: KIESHA REYNOSO MD This examination was interpreted and the report reviewed and electronically signed by: KIESHA REYNOSO MD on Aug 28 2022 5:19PM EST Thank you for allowing us to participate in the care of your patient. Should there be any questions regarding this interpretation, please call [phone]. If you are unable to reach us at the number above, please feel free to contact [facility] at [phone]. DIVISION OF RADIOLOGY * * *Final Report* * * DATE OF EXAM: Aug 28 2022 1:36PM [facility] 0539 - CT CHEST W IVCON / PROCEDURE REASON: Lung nodules * * * * Physician Interpretation * * * * RESULT: EXAMINATION: CHEST CT WITH CONTRAST CLINICAL HISTORY: Lung nodules. Technique: Spiral CT acquisition of the chest from the thoracic inlet to the upper abdomen following IV contrast. MQ: CTCW_6 Contrast: 125 mL Omnipaque [address] Radiation dose: Integrated Dose-length product (DLP) for this visit = 1383 mGy*cm CT Dose Reduction Employed: Automated exposure control (AEC) Comparison: CT performed 08/24/2021 RESULT: Limitations: None. Lines, tubes, and devices: None. Lung parenchyma and airways: Stable reticulonodular opacities are noted in the bilateral upper lobes, unchanged from prior exam. Mild centrilobular emphysema is also noted. Scattered bilateral nodular opacities are also noted. These include the following: Right upper lobe (4:45) 3 mm, stable Right lower lobe (4:109) 2 mm, stable Left upper lobe (4:81) 3 mm, stable Left lower lobe (4:114) 3 mm, stable Previously visualized branching nodular opacities in the posterior right upper lobe have resolved, likely infectious/inflammatory in nature. The central airways are widely patent. Pleural space: No pleural effusion. No pleural thickening. Lower neck, lymph nodes, and mediastinum: There is a subcarinal node measuring up to 9 mm. Bilateral hilar nodes are seen measuring up to 6 mm. No bulky intrathoracic adenopathy is noted. Heart, pericardium, and thoracic vessels: The thoracic aorta and main pulmonary artery are normal in caliber. The cardiac chambers are normal in size. No coronary artery atherosclerotic calcifications are noted, although the study is not optimized for coronary assessment. No pericardial effusion or thickening. Bones and soft tissues: Degenerative change is seen in the thoracic spine. No destructive osseous lesions are seen. Superficial soft tissues are unremarkable. Upper abdomen: A dedicated CT of the abdomen and pelvis was performed concurrently and is reported separately. Protozoology Teacher (topogram) images: No additional findings. DIVISION OF RADIOLOGY Provider, [facility] - 08/28/2022 * * *Final Report* * * DATE OF EXAM: Aug 28 2022 1:36PM [facility] 0539 - CT CHEST W IVCON / PROCEDURE REASON: Lung nodules * * * * Physician Interpretation * * * * RESULT: EXAMINATION: CHEST CT WITH CONTRAST CLINICAL HISTORY: Lung nodules. Technique: Spiral CT acquisition of the chest from the thoracic inlet to the upper abdomen following IV contrast. MQ: CTCW_6 Contrast: 125 mL Omnipaque [address] Radiation dose: Integrated Dose-length product (DLP) for this visit = 1383 mGy*cm CT Dose Reduction Employed: Automated exposure control (AEC) Comparison: CT performed 08/24/2021 RESULT: Limitations: None. Lines, tubes, and devices: None. Lung parenchyma and airways: Stable reticulonodular opacities are noted in the bilateral upper lobes, unchanged from prior exam. Mild centrilobular emphysema is also noted. Scattered bilateral nodular opacities are also noted. These include the following: Right upper lobe (4:45) 3 mm, stable Right lower lobe (4:109) 2 mm, stable Left upper lobe (4:81) 3 mm, stable Left lower lobe (4:114) 3 mm, stable Previously visualized branching nodular opacities in the posterior right upper lobe have resolved, likely infectious/inflammatory in nature. The central airways are widely patent. Pleural space: No pleural effusion. No pleural thickening. Lower neck, lymph nodes, and mediastinum: There is a subcarinal node measuring up to 9 mm. Bilateral hilar nodes are seen measuring up to 6 mm. No bulky intrathoracic adenopathy is noted. Heart, pericardium, and thoracic vessels: The thoracic aorta and main pulmonary artery are normal in caliber. The cardiac chambers are normal in size. No coronary artery atherosclerotic calcifications are noted, although the study is not optimized for coronary assessment. No pericardial effusion or thickening. Bones and soft tissues: Degenerative change is seen in the thoracic spine. No destructive osseous lesions are seen. Superficial soft tissues are unremarkable. Upper abdomen: A dedicated CT of the abdomen and pelvis was performed concurrently and is reported separately. Protozoology Teacher (topogram) images: No additional findings. IMPRESSION IMPRESSION: 1. Interval resolution of previously described right upper lobe nodular opacities, likely infectious/inflammatory in nature. 2. Otherwise stable CT of the chest. Stable reticulonodular opacities most prominent in the bilateral upper lobes. Other scattered nodular opacities measuring up to 3 mm, stable. 3. No evidence of bulky intrathoracic adenopathy. Transcribe Date/Time: Aug 28 2022 5:08P Dictated by: KIESHA REYNOSO MD This examination was interpreted and the report reviewed and electronically signed by: KIESHA REYNOSO MD on Aug 28 2022 5:19PM EST Thank you for allowing us to participate in the care of your patient. Should there be any questions regarding this interpretation, please call [phone]. If you are unable to reach us at the number above, please feel free to contact [facility] at [phone]. [facility] No Panel Informationon 08-28 Radiology Study observation (narrative) [facility] Covid-19 PCR (CVDTBH)on SARS-CoV-2 (COVID-19) RNA ZABRINA+probe Ql (Unsp spec) Detected Critically abnormal NOT DETECTED [facility] Comment on above: Result Comment: This test is not yet approved or cleared by the [place] FDA. When there are no FDA-approved or cleared tests available, and other criteria are met, FDA can make tests available under an emergency access mechanism called an Emergency Use Authorization (EUA). The EUA for this test is supported by the [employer] of Health and Human Service's (HHS's) declaration [...] longer be used). Performed By: #### [facility] #### [facility] [address] [place] [address] Dr. Jose David Shanks Vital Signs Date Time Vital Sign Value Performing Clinician Facility 09-11-2024 10:19-0500 Body height 165.1 cm [facility] 09-11-2024 10:19-0500 Body mass index (BMI) [Ratio] 32.3 kg/m2 [facility] 09-11-2024 10:19-0500 Body weight 88.13 kg [facility] 09-11-2024 10:19-0500 Diastolic blood pressure 54 mm[Hg] [facility] 09-11-2024 10:19-0500 Heart rate 63 /min [facility] 09-11-2024 10:19-0500 SaO2% (BldA) [Mass fraction] 97 % [facility] 09-11-2024 10:19-0500 Systolic blood pressure 118 mm[Hg] [facility] 06-03-2024 10:54-0400 Body height 165.1 cm DO Nathan Ball Work Phone: [facility] 06-03-2024 10:54-0400 Body mass index (BMI) [Ratio] 26.8 kg/m2 DO Nathan Ball Work Phone: [facility] 06-03-2024 10:54-0400 Body weight 73.02 kg DO Nathan Ball Work Phone: [facility] 06-03-2024 10:54-0400 Diastolic blood pressure 89 mm[Hg] DO Nathan Ball Work Phone: [facility] 06-03-2024 10:54-0400 Heart rate 56 /min DO Nathan Ball Work Phone: [facility] 06-03-2024 10:54-0400 Respiratory rate 12 /min DO Nathan Ball Work Phone: [facility] 06-03-2024 10:54-0400 Systolic blood pressure 139 mm[Hg] DO Nathan Ball Work Phone: [facility] 03-12-2024 09:27-0400 Diastolic blood pressure 66 mm[Hg] Laura [address] [place] [address] 03-12-2024 09:27-0400 Heart rate 62 /min [address] 03-12-2024 09:27-0400 Systolic blood pressure 114 mm[Hg] [address] 03-05-2024 11:46-0400 Body height 165.1 cm Holden Rosado MANAGER GAME-FILLER OPERATOR Work Phone: [facility] 03-05-2024 11:46-0400 Body mass index (BMI) [Ratio] 32.62 kg/m2 Holden Rosado MANAGER GAME-FILLER OPERATOR Work Phone: [facility] 03-05-2024 11:46-0400 Body weight 88.91 kg Holden Rosado MANAGER GAME-FILLER OPERATOR Work Phone: [facility] 03-05-2024 11:46-0400 Diastolic blood pressure 68 mm[Hg] Holden Rosado MANAGER GAME-FILLER OPERATOR Work Phone: [facility] 03-05-2024 11:46-0400 Heart rate 62 /min Holden Rosado MANAGER GAME-FILLER OPERATOR Work Phone: [facility] 03-05-2024 11:46-0400 Systolic blood pressure 120 mm[Hg] Holden Rosado MANAGER GAME-FILLER OPERATOR Work Phone: [facility] 02-27-2024 09:53-0400 Body height 165.1 cm DO Nathan Ball Work Phone: [facility] 02-27-2024 09:53-0400 Body mass index (BMI) [Ratio] 31.9 kg/m2 DO Nathan Ball Work Phone: [facility] 02-27-2024 09:53-0400 Body weight 87.08 kg DO Nathan Ball Work Phone: [facility] 02-27-2024 09:53-0400 Diastolic blood pressure 72 mm[Hg] DO Nathan Ball Work Phone: [facility] 02-27-2024 09:53-0400 Heart rate 62 /min DO Nathan Ball Work Phone: [facility] 02-27-2024 09:53-0400 SaO2% (BldA) [Mass fraction] 97 % DO Nathan Ball Work Phone: [facility] 02-27-2024 09:53-0400 Systolic blood pressure 132 mm[Hg] DO Nathan Ball Work Phone: [facility] 02-13-2024 10:30-0400 Body height 165.1 cm [facility] 02-13-2024 10:30-0400 Body mass index (BMI) [Ratio] 32.8 kg/m2 [facility] 02-13-2024 10:30-0400 Body weight 89.35 kg [facility] 02-13-2024 10:30-0400 Diastolic blood pressure 60 mm[Hg] [facility] 02-13-2024 10:30-0400 Heart rate 56 /min [facility] 02-13-2024 10:30-0400 SaO2% (BldA) [Mass fraction] 98 % [facility] 02-13-2024 10:30-0400 Systolic blood pressure 128 mm[Hg] [facility] 02-01-2024 11:01-0400 Body height 165.1 cm [facility] 02-01-2024 11:01-0400 Body mass index (BMI) [Ratio] 27.3 kg/m2 [facility] 02-01-2024 11:01-0400 Body weight 74.44 kg [facility] 02-01-2024 11:01-0400 Diastolic blood pressure 72 mm[Hg] [facility] 02-01-2024 11:01-0400 Heart rate 49 /min [facility] 02-01-2024 11:01-0400 Respiratory rate 12 /min [facility] 02-01-2024 11:01-0400 Systolic blood pressure 131 mm[Hg] [facility] 11-02-2023 11:00-0500 Body height 165.1 cm Nathan Ball Other [facility] [employer] Other 11-02-2023 11:00-0500 Body mass index (BMI) [Ratio] 31.78 kg/m2 Nathan Ball Other [facility] Other 11-02-2023 11:00-0500 Body weight 86.64 kg Nathan Ball Other [facility] Other 11-02-2023 11:00-0500 Diastolic blood pressure 80 mm[Hg] Nathan Ball Other [employer] Other 11-02-2023 11:00-0500 Respiratory rate 16 /min Nathan Ball Other [facility] Other 11-02-2023 11:00-0500 Systolic blood pressure 130 mm[Hg] Nathan Ball Other [employer] Other 10-02-2023 09:45-0500 Body height 165.1 cm Nathan Ball Other [employer] Other 10-02-2023 09:45-0500 Body mass index (BMI) [Ratio] 31.61 kg/m2 Nathan Ball Other [employer] Other 10-02-2023 09:45-0500 Body weight 86.18 kg Nathan Ball Other [employer] Other 10-02-2023 09:45-0500 Diastolic blood pressure 74 mm[Hg] Nathan Ball Other [employer] Other 10-02-2023 09:45-0500 Respiratory rate 12 /min Nathan Ball Other [employer] Other 10-02-2023 09:45-0500 Systolic blood pressure 144 mm[Hg] Nathan Ball Other [employer] Other 06-08-2023 11:15-0400 Body height 165.1 cm Nathan Ball Other [facility] Other 06-08-2023 11:15-0400 Body mass index (BMI) [Ratio] 32.95 kg/m2 Nathan Ball Other [facility] Other 06-08-2023 11:15-0400 Body weight 89.81 kg Nathan Ball Other [employer] Other 06-08-2023 11:15-0400 Diastolic blood pressure 62 mm[Hg] Nathan Ball Other [employer] Other 06-08-2023 11:15-0400 Respiratory rate 12 /min Nathan Ball Other [employer] Other 06-08-2023 11:15-0400 Systolic blood pressure 138 mm[Hg] Nathan Ball Other [facility] Other 06-04-2023 13:51-0400 Body temperature 97.7 [degF] Luis Mckenzie MD Work Phone: [facility] 06-04-2023 13:51-0400 Body weight 91.99 kg Luis Mckenzie MD Work Phone: [facility] 06-04-2023 13:51-0400 Diastolic blood pressure 58 mm[Hg] Luis Mckenzie MD Work Phone: [facility] 06-04-2023 13:51-0400 Heart rate 56 /min Luis Mckenzie MD Work Phone: [facility] 06-04-2023 13:51-0400 Respiratory rate 18 /min Luis Mckenzie MD Work Phone: [facility] 06-04-2023 13:51-0400 SaO2% (BldA) [Mass fraction] 98 % Luis Mckenzie MD Work Phone: [facility] 06-04-2023 13:51-0400 Systolic blood pressure 155 mm[Hg] Luis Mckenzie MD Work Phone: [facility] 05-25-2023 11:15-0400 Body height 165.1 cm Nathan Ball Other [employer] Other 05-25-2023 11:15-0400 Body mass index (BMI) [Ratio] 32.86 kg/m2 Nathan Ball Other [employer] Other 05-25-2023 11:15-0400 Body weight 89.59 kg Nathan Ball Other [employer] Other 05-25-2023 11:15-0400 Diastolic blood pressure 68 mm[Hg] Nathan Ball Other [employer] Other 05-25-2023 11:15-0400 Respiratory rate 16 /min Nathan Ball Other [employer] Other 05-25-2023 11:15-0400 Systolic blood pressure 142 mm[Hg] Nathan Ball Other [employer] Other 05-18-2023 15:30-0400 Body temperature 97.7 [degF] DO Nathan Ball Work Phone: [facility] 05-18-2023 15:30-0400 Diastolic blood pressure 71 mm[Hg] DO Nathan Ball Work Phone: [facility] 05-18-2023 15:30-0400 Heart rate 62 /min DO Nathan Ball Work Phone: [facility] 05-18-2023 15:30-0400 Respiratory rate 16 /min DO Nathan Ball Work Phone: [facility] 05-18-2023 15:30-0400 SaO2% (BldA) [Mass fraction] 95 % DO Nathan Ball Work Phone: [facility] 05-18-2023 15:30-0400 Systolic blood pressure 145 mm[Hg] DO Nathan Ball Work Phone: [facility] 05-18-2023 05:39-0400 Body weight 88.1 kg DO Nathan Ball Work Phone: [facility] 05-17-2023 20:00-0400 Inhaled oxygen flow rate 1.5 L/min DO Nathan Ball Work Phone: [facility] 05-17-2023 15:54-0400 Body height 172.72 cm DO Nathan Ball Work Phone: [facility] 05-16-2023 11:30-0400 Body height 165.1 cm Nathan Ball Other [facility] [employer] Other 05-16-2023 11:30-0400 Body mass index (BMI) [Ratio] 33.28 kg/m2 Nathan Ball Other [facility] [employer] Other 05-16-2023 11:30-0400 Body weight 90.72 kg Nathan Ball Other [facility] [employer] Other 05-16-2023 11:30-0400 Diastolic blood pressure 69 mm[Hg] Nathan Ball Other [facility] Other 05-16-2023 11:30-0400 Respiratory rate 16 /min Nathan Ball Other [employer] Other 05-16-2023 11:30-0400 Systolic blood pressure 192 mm[Hg] Nathan Ball Other [employer] Other 05-09-2023 11:15-0400 Body height 165.1 cm Nathan Ball Other [employer] Other 05-09-2023 11:15-0400 Body mass index (BMI) [Ratio] 32.75 kg/m2 Nathan Ball Other [employer] Other 05-09-2023 11:15-0400 Body weight 89.27 kg Nathan Ball Other [employer] Other 05-09-2023 11:15-0400 Diastolic blood pressure 62 mm[Hg] Nathan Ball Other [employer] Other 05-09-2023 11:15-0400 Respiratory rate 16 /min Nathan Ball Other [facility] Other 05-09-2023 11:15-0400 SaO2% (BldA) [Mass fraction] 98 % Nathan Ball Other [employer] Other 05-09-2023 11:15-0400 Systolic blood pressure 189 mm[Hg] Nathan Ball Other [employer] Other 04-26-2023 11:30-0400 Body height 165.1 cm Nathan Ball Other [employer] Other 04-26-2023 11:30-0400 Body mass index (BMI) [Ratio] 32.53 kg/m2 Nathan Ball Other [facility] Other 04-26-2023 11:30-0400 Body weight 88.68 kg Nathan Ball Other [employer] Other 04-26-2023 11:30-0400 Diastolic blood pressure 80 mm[Hg] Nathan Ball Other [employer] Other 04-26-2023 11:30-0400 Respiratory rate 16 /min Nathan Ball Other [employer] Other 04-26-2023 11:30-0400 Systolic blood pressure 136 mm[Hg] Nathan Ball Other [facility] Other 04-18-2023 09:45-0400 Body height 165.1 cm Nathan Ball Other [facility] Other 04-18-2023 09:45-0400 Body mass index (BMI) [Ratio] 33.28 kg/m2 Nathan Ball Other [facility] Other 04-18-2023 09:45-0400 Body weight 90.72 kg Nathan Ball Other [employer] Other 04-18-2023 09:45-0400 Diastolic blood pressure 76 mm[Hg] Nathan Ball Other [employer] Other 04-18-2023 09:45-0400 Respiratory rate 20 /min Nathan Ball Other [facility] Other 04-18-2023 09:45-0400 SaO2% (BldA) [Mass fraction] 98 % Nathan Ball Other [facility] Other 04-18-2023 09:45-0400 Systolic blood pressure 132 mm[Hg] Nathan Ball Other [facility] Other 03-15-2023 10:45-0400 Body height 165.1 cm Nathan Ball Other [employer] Other 03-15-2023 10:45-0400 Body mass index (BMI) [Ratio] 31.95 kg/m2 Nathan Ball Other [facility] Other 03-15-2023 10:45-0400 Body weight 87.09 kg Nathan Ball Other [facility] Other 03-15-2023 10:45-0400 Diastolic blood pressure 77 mm[Hg] Nathan Ball Other [facility] Other 03-15-2023 10:45-0400 Respiratory rate 16 /min Nathan Ball Other [facility] Other 03-15-2023 10:45-0400 Systolic blood pressure 151 mm[Hg] Nathan Ball Other [facility] Other 03-09-2023 17:00-0400 Body temperature 97.9 [degF] DO Nathan Ball Work Phone: [facility] 03-09-2023 17:00-0400 Diastolic blood pressure 72 mm[Hg] DO Nathan Ball Work Phone: [facility] 03-09-2023 17:00-0400 Heart rate 54 /min DO Nathan Ball Work Phone: [facility] 03-09-2023 17:00-0400 Respiratory rate 16 /min DO Nathan Ball Work Phone: [facility] 03-09-2023 17:00-0400 SaO2% (BldA) [Mass fraction] 96 % DO Nathan Ball Work Phone: [facility] 03-09-2023 17:00-0400 Systolic blood pressure 140 mm[Hg] DO Nathan Ball Work Phone: [facility] 03-09-2023 08:11-0400 Body height 165.1 cm DO Nathan Ball Work Phone: [facility] 03-09-2023 08:11-0400 Body weight 90 kg DO Nathan Ball Work Phone: [facility] 03-07-2023 10:14-0400 Diastolic blood pressure 70 mm[Hg] Nathan E Ball Work Phone: [facility] 250 DO Work Phone: 03-07-2023 10:14-0400 Systolic blood pressure 138 mm[Hg] Nathan E Ball Work Phone: [facility] 250 DO Work Phone: 03-07-2023 10:04-0400 Body height 165.1 cm Nathan E Ball Work Phone: [facility] [employer] 250 DO Work Phone: 03-07-2023 10:04-0400 Body mass index (BMI) [Ratio] 33.95 kg/m2 Nathan E Ball Work Phone: [facility] 250 DO Work Phone: 03-07-2023 10:04-0400 Body surface area Derived from formula 1.99 m2 Nathan E Ball Work Phone: [facility] 250 DO Work Phone: 03-07-2023 10:04-0400 Body weight 92.53 kg Nathan E Ball Work Phone: [facility] [facility] DO Work Phone: 03-07-2023 10:04-0400 Diastolic blood pressure 72 mm[Hg] Nathan E Ball Work Phone: [facility] [facility] DO Work Phone: 03-07-2023 10:04-0400 Heart rate 45 /min Nahtan E Ball Work Phone: [facility] [employer] 250 DO Work Phone: 03-07-2023 10:04-0400 Systolic blood pressure 144 mm[Hg] Nathan E Ball Work Phone: [facility] [employer] 250 DO Work Phone: 02-14-2023 11:15-0400 Body height 165.1 cm Nathan Ball Other [facility] [employer] Other 02-14-2023 11:15-0400 Body mass index (BMI) [Ratio] 32.61 kg/m2 Nathan Ball Other [facility] [employer] Other 02-14-2023 11:15-0400 Body weight 88.91 kg Nathan Ball Other [facility] [employer] Other 02-14-2023 11:15-0400 Diastolic blood pressure 72 mm[Hg] Nathan Ball Other [facility] [employer] Other 02-14-2023 11:15-0400 Respiratory rate 12 /min Nathan Ball Other [facility] [employer] Other 02-14-2023 11:15-0400 Systolic blood pressure 204 mm[Hg] Nathan Ball Other [facility] [employer] Other 02-02-2023 12:15-0400 Body height 165.1 cm Nathan Ball Other [facility] Other 02-02-2023 12:15-0400 Body mass index (BMI) [Ratio] 32.78 kg/m2 Nathan Ball Other [facility] Other 02-02-2023 12:15-0400 Body weight 89.36 kg Nathan Ball Other [employer] Other 02-02-2023 12:15-0400 Diastolic blood pressure 70 mm[Hg] Nathan Ball Other [employer] Other 02-02-2023 12:15-0400 Respiratory rate 12 /min Nathan Ball Other [employer] Other 02-02-2023 12:15-0400 Systolic blood pressure 201 mm[Hg] Nathan Ball Other [employer] Other 12-14-2022 10:00-0500 Body height 165.1 cm Ntahan Ball Other [employer] Other 12-14-2022 10:00-0500 Body mass index (BMI) [Ratio] 32.53 kg/m2 Nathan Ball Other [employer] Other 12-14-2022 10:00-0500 Body weight 88.68 kg Nathan Ball Other [employer] Other 12-14-2022 10:00-0500 Diastolic blood pressure 70 mm[Hg] Nathan Ball Other [employer] Other 12-14-2022 10:00-0500 Respiratory rate 12 /min Nathan Ball Other [employer] Other 12-14-2022 10:00-0500 Systolic blood pressure 140 mm[Hg] Nathan Ball Other [employer] Other 12-04-2022 13:25-0500 Body height 166.4 cm Luis Mckenzie MD Work Phone: [facility] 12-04-2022 13:25-0500 Body temperature 97.11 [degF] Luis Mckenzie MD Work Phone: [facility] 12-04-2022 13:25-0500 Body weight 90.36 kg Luis Mckenzie MD Work Phone: [facility] 12-04-2022 13:25-0500 Diastolic blood pressure 54 mm[Hg] Luis Mckenzie MD Work Phone: [facility] 12-04-2022 13:25-0500 Heart rate 63 /min Luis Mckenzie MD Work Phone: [facility] 12-04-2022 13:25-0500 Respiratory rate 16 /min Luis Mckenzie MD Work Phone: [facility] 12-04-2022 13:25-0500 SaO2% (BldA) [Mass fraction] 96 % Luis Mckenzie MD Work Phone: [facility] 12-04-2022 13:25-0500 Systolic blood pressure 167 mm[Hg] Luis Mckenzie MD Work Phone: [facility] 11-14-2022 15:00-0500 Body height 165.1 cm Nathan Ball Other [employer] Other 11-14-2022 15:00-0500 Body mass index (BMI) [Ratio] 32.53 kg/m2 Nathan Ball Other [employer] Other 11-14-2022 15:00-0500 Body weight 88.68 kg Nathan Ball Other [employer] Other 11-14-2022 15:00-0500 Diastolic blood pressure 72 mm[Hg] Nathan Ball Other [employer] Other 11-14-2022 15:00-0500 Respiratory rate 12 /min Nathan Ball Other [employer] Other 11-14-2022 15:00-0500 Systolic blood pressure 130 mm[Hg] Nathan Ball Other [facility] [employer] Other 05-29-2022 10:06-0400 Body height 166.4 cm Luis Mckenzie MD Work Phone: [facility] 05-29-2022 10:06-0400 Body temperature 97.59 [degF] Luis Mckenzie MD Work Phone: [facility] 05-29-2022 10:06-0400 Body weight 89.72 kg Luis Mckenzie MD Work Phone: [facility] 05-29-2022 10:06-0400 Diastolic blood pressure 50 mm[Hg] Luis Mckenzie MD Work Phone: [facility] 05-29-2022 10:06-0400 Heart rate 50 /min Luis Mckenzie MD Work Phone: [facility] 05-29-2022 10:06-0400 Respiratory rate 16 /min Luis Mckenzie MD Work Phone: [facility] 05-29-2022 10:06-0400 SaO2% (BldA) [Mass fraction] 96 % Luis Mckenzie MD Work Phone: [facility] 05-29-2022 10:06-0400 Systolic blood pressure 155 mm[Hg] Luis Mckenzie MD Work Phone: [facility] Encounters Encounter Date Encounter Type Care Provider Facility Start: 09-11-2024 End: 09-11-2024 ambulatory [facility] Work Phone: Start: 09-11-2024 End: 09-11-2024 Patient encounter [facility] Work Phone: Start: 09-04-2024 Non-patient / Non-visit [facility] Work Phone: Start: 07-16-2024 End: 07-16-2024 ambulatory [facility] Work Phone: Start: 07-16-2024 End: 07-16-2024 Patient encounter procedure [facility] Work Phone: Start: 06-03-2024 End: 06-03-2024 ambulatory DO Nathan Hath[facility] Work Phone: Start: 06-03-2024 End: 06-03-2024 Patient encounter procedure DO Nathan Hathaway Work Phone: [facility] Work Phone: Start: 05-20-2024 Non-patient / Non-visit DO Natalio Hathaway Work Phone: [facility] Work Phone: Start: 04-30-2024 Non-patient / Non-visit DO Natalio Hathaway Work Phone: [facility] Work Phone: Start: 04-28-2024 End: 04-28-2024 ambulatory [facility] Not Available Start: 04-21-2024 End: 04-21-2024 ambulatory [facility] Ambulatory Start: 03-12-2024 End: 03-13-2024 ambulatory [facility] Start: 03-12-2024 End: 03-12-2024 Subsequent hospital visit by physician Laura Shabazz Nm [facility] Comment on above: ASHD (arteriosclerot ic heart disease) Start: 03-05-2024 End: 03-05-2024 ambulatory [facility] Facility:[facility] Start: 03-05-2024 End: 03-05-2024 ambulatory DO Nathan Hathaway Work Phone: [facility] Work Phone: Start: 03-05-2024 End: 03-05-2024 Patient encounter procedure DO Nathan Hathaway Work Phone: [facility] [place] Work Phone: Start: 03-05-2024 End: 03-05-2024 Office outpatient visit 25 minutes Holden Lambert [place] 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 Work Phone: Start: 02-21-2024 Non-patient / Non-visit DO Natalio pinzon Ball Work Phone: [facility] Work Phone: Start: 02-20-2024 Non-patient / Non-visit DO Natalio pinzon Ball Work Phone: [facility] Work Phone: Start: 02-19-2024 Non-patient / Non-visit DO Natalio pinzon Ball Work Phone: [facility] Work Phone: Start: 02-18-2024 Non-patient / Non-visit DO Natalio Hathaway Work Phone: [facility] Work Phone: Start: 02-13-2024 End: 02-13-2024 ambulatory [facility] Work Phone: Start: 02-13-2024 End: 02-13-2024 Patient encounter procedure [facility] Work Phone: Start: 02-02-2024 Non-patient / Non-visit [facility] Work Phone: Start: 02-01-2024 End: 02-01-2024 ambulatory [facility] Work Phone: Start: 02-01-2024 End: 02-01-2024 Patient encounter procedure [facility] Work Phone: Start: 01-04-2024 End: 01-04-2024 ambulatory Nathan Hathaway Other [employer] Other Start: 01-04-2024 Telephone encounter Nathan Hathaway [facility] Start: 12-18-2023 Non-patient / Non-visit [facility] [employer] Work Phone: Start: 11-27-2023 End: 11-27-2023 ambulatory Nathan Hathaway Other [employer] Other Start: 11-27-2023 Telephone encounter Nathan Hathaway [facility] Start: 11-05-2023 End: 11-05-2023 ambulatory NATHAN HATHAWAY Facility:[facility] Start: 11-02-2023 End: 11-02-2023 ambulatory Nathan Ball Other [employer] Other Start: 11-02-2023 Office outpatient vi sit 25 minutes Nathan Ball [facility] Start: 10-17-2023 End: 10-17-2023 ambulatory [facility] Start: 10-02-2023 End: 10-02-2023 ambulatory Nathan Ball Other [employer] Other Start: 10-02-2023 Office outpatient vi sit 25 minutes Nathan Ball [facility] Start: 09-26-2023 End: 09-26-2023 ambulatory Nathan Ball Other [employer] Other Start: 09-26-2023 Telephone encounter Nathan Hathaway [facility] Start: 09-21-2023 End: 09-21-2023 ambulatory Nathan Ball Other [employer] Other Start: 09-21-2023 Telephone encounter Nathan Hathaway [facility] Start: 2023 End: 2023 ambulatory Nathan Ball Other [employer] Other Start: 2023 Telephone encounter Nathan Ball [facility] Start: 09-13-2023 End: 09-13-2023 ambulatory Nathan Ball Other [employer] Other Start: 09-13-2023 Telephone encounter Nathan Ball [facility] Start: 09-11-2023 End: 09-11-2023 ambulatory Nathan Ball Other [employer] Other Start: 09-11-2023 Office outpatient vi sit 15 minutes Nathan Ball [facility] Start: 08-16-2023 End: 08-16-2023 ambulatory Nathan Ball Other [employer] Other Start: 08-16-2023 Telephone encounter Nathan Ball [facility] Start: 07-31-2023 End: 07-31-2023 ambulatory Nathan Ball Other [employer] Other Start: 07-31-2023 Telephone encounter Nathan Ball [facility] Start: 07-30-2023 End: 07-30-2023 ambulatory Nathan Ball Other [employer] Other Start: 07-30-2023 Telephone encounter Nathan Ball [facility] Start: 07-19-2023 End: 07-19-2023 ambulatory Nathan Ball Other [employer] Other Start: 07-19-2023 Telephone encounter Nathan Ball [facility] Start: 07-18-2023 End: 07-18-2023 ambulatory Nathan Ball Other [employer] Other Start: 07-18-2023 Telephone encounter Nathan Ball [facility] Start: 07-17-2023 End: 07-17-2023 ambulatory Nathan Ball Other [employer] Other Start: 07-17-2023 Nursing evaluation o f patient and report Nathan Hathaway [facility] Start: 06-28-2023 End: 06-28-2023 ambulatory Nathan Hathaway Other [employer] Other Start: 06-28-2023 Telephone encounter Nathan Ball [facility] Start: 06-25-2023 End: 06-25-2023 ambulatory Nathan Hathaway Other [employer] Other Start: 06-25-2023 Telephone encounter Nathan Ball [facility] Start: 06-21-2023 End: 06-21-2023 ambulatory Nathan Hathaway Other [employer] Other Start: 06-21-2023 Telephone encounter Nathan Ball [facility] Start: 06-19-2023 End: 06-19-2023 ambulatory Nathan Hathaway Other [employer] Other Start: 06-19-2023 Telephone encounter Nathan Ball [facility] Start: 06-18-2023 End: 06-18-2023 ambulatory Nathan Hathaway Other [employer] Other Start: 06-18-2023 Telephone encounter Nathan Ball [facility] Start: 06-15-2023 End: 06-15-2023 ambulatory Nathan Hathaway Other [employer] Other Start: 06-15-2023 Telephone encounter Nathan Ball [facility] Start: 06-08-2023 End: 06-08-2023 ambulatory Nathan Ball Other [employer] Other Start: 06-08-2023 Office outpatient vi sit 15 minutes Nathan Ball [facility] Start: 06-06-2023 Telephone encounter Juan Rico Hematology/Oncology Comment on above: Results Start: 06-04-2023 End: 06-04-2023 ambulatory Luis Mckenzie MD Work Phone: [employer] Other Comment on above: Abnormal SPEP (Prima ry Dx); Anemia, unspecified type; Neuropathy - (NOS); Heart disease Start: 06-04-2023 End: 06-04-2023 Patient encounter procedure Luis Mckenzie MD Work Phone: [facility] Start: 06-04-2023 Telephone encounter Nathan Hathaway [facility] Start: 06-01-2023 End: 06-01-2023 ambulatory Nathan Hathaway Other [employer] Other Start: 06-01-2023 Telephone encounter Nathan [facility]ath[facility] Start: 05-28-2023 End: 05-28-2023 ambulatory NATHAN HATHAWAY Facility:[facility] Start: 05-25-2023 End: 05-25-2023 ambulatory Nathan Hathaway Other [employer] Other Start: 05-25-2023 Transitional care julito stark srvc 14 day discharge Nathan Hathaway [facility] Start: 05-17-2023 End: 05-18-2023 ambulatory Nathan Hathaway Facility:[facility] Start: 05-17-2023 End: 05-18-2023 Evaluation and management of inpatient DO Nathan Hathaway Work Phone: [facility] [place] [facility] Work Phone: Start: 05-17-2023 End: 05-18-2023 observation encounter DO Nathan Hathaway Work Phone: [facility] Work Phone: Start: 05-16-2023 End: 05-16-2023 ambulatory Nathan Hathaway Other [employer] Other Start: 05-16-2023 Office outpatient vi sit 25 minutes Nathan Hathaway [facility] Start: 05-09-2023 End: 05-09-2023 ambulatory Nathan Hathaway Other [employer] Other Start: 05-09-2023 Office outpatient vi sit 25 minutes Nathan Ball [facility] Start: 05-09-2023 Telephone encounter Nathan E Ball Work Phone: [facility] [address] DO Work Phone: Start: 04-26-2023 End: 04-26-2023 ambulatory Nathan Ball Other [employer] Other Start: 04-26-2023 Office outpatient vi sit 25 minutes Nathan Ball [facility] Start: 04-26-2023 Telephone encounter Nathan Ball [facility] Start: 04-18-2023 End: 04-18-2023 ambulatory Nathan Ball Other [employer] Other Start: 04-18-2023 Office outpatient vi sit 25 minutes Nathan Ball [facility] Start: 04-18-2023 Telephone encounter Nathan Ball [facility] Start: 03-27-2023 End: 03-27-2023 ambulatory Nathan Ball Other [employer] Other Start: 03-27-2023 Telephone encounter Nathan Ball [facility] Start: 03-15-2023 End: 03-15-2023 ambulatory Nathan Ball Other [employer] Other Start: 03-15-2023 Office outpatient vi sit 25 minutes Nathan Ball [facility] Start: 03-09-2023 Telephone encounter Nathan Ball [facility] Start: 03-09-2023 SURGNON, Provider: Edinson Perry, Status: Pen, Time: 10:00 AM Nathan E Ball Work Phone: [facility] 250 DO Work Phone: Start: 03-09-2023 End: 03-09-[address] Edinson Perry [employer] Other Start: 03-09-2023 End: 03-09-2023 Admission to same day surgery center DO Nathan Ball Work Phone: [facility] Work Phone: Start: 03-08-2023 End: 03-08-2023 ambulatory Nathna Hathaway Facility:[facility] Start: 03-08-2023 End: 03-08-2023 ambulatory DO Nathan Hathaway Work Phone: [facility] Work Phone: Start: 03-08-2023 End: 03-08-2023 Patient encounter procedure DO Nathan Ball Work Phone: [facility] Work Phone: Start: 03-07-2023 Office consultation new/estab patient 80 min Nathan Chinyere Hathaway Work Phone: [facility] [facility] DO Work Phone: Start: 03-07-[address] Edinson Perry Facility: Start: 03-05-2023 End: 03-05-2023 ambulatory Nathan Hathaway Other [employer] Other Start: 03-05-2023 Telephone encounter Nathan CHURCHILL [facility] Start: 03-01-2023 End: 03-02-[address] NATHAN HATHAWAY Facility:[facility] Start: 02-27-2023 End: 02-27-2023 ambulatory Nathan Hathaway Other [employer] Other Start: 02-27-2023 Telephone encounter Nathan [facility]UR[facility]ILL [facility] Start: 02-20-2023 End: 02-20-2023 ambulatory Nathan Hathaway Other [employer] Other Start: 02-20-2023 Telephone encounter Nathan [facility]UR[place]ILL [facility] Start: 02-14-2023 End: 02-14-2023 ambulatory Nathan Hathaway Other [employer] Other Start: 02-14-2023 Office outpatient vi sit 25 minutes Nathan POLANCO [facility] Start: 02-14-2023 Telephone encounter Nathan [facility]UR[facility]ILL [facility] Start: 02-11-2023 End: 02-11-2023 ambulatory Nathan Hathaway Other [employer] Other Start: 02-11-2023 Telephone encounter Nathan H[facility] Start: 02-08-2023 End: 02-09-2023 Evaluation and management of inpatient DR NATHAN HATHAWAY Facility:[facility] Start: 02-02-2023 End: 02-02-2023 ambulatory Nathan Hathaway Other [employer] Other Start: 02-02-2023 Office outpatient vi sit 25 minutes Nathan Hathaway [facility] Start: 01-08-2023 End: 01-09-[address] NATHAN HATHAWAY Facility:[facility] Start: 12-21-2022 End: 12-21-2022 ambulatory Nathan Hathaway Other [employer] Other Start: 12-21-2022 Telephone encounter Nathan Hathaway [facility] Start: 12-20-2022 End: 12-20-2022 ambulatory Nathan Hathaway Other [employer] Other Start: 12-20-2022 Telephone encounter Nathan Hathaway [facility] Start: 12-14-2022 End: 12-14-2022 ambulatory Nathan Hathaway Other [employer] Other Start: 12-14-2022 Patient encounter procedure Nathan Hathaway [facility] Start: 12-04-2022 End: 12-04-2022 ambulatory NATHAN HATHAWAY Facility:[facility] Start: 12-04-2022 End: 12-04-2022 ambulatory Luis Mckenzie MD Work Phone: Hematology/Oncology Comment on above: Abnormal SPEP (Prima ry Dx); Neuropathy - (NOS); Lung nodules Start: 12-04-2022 End: 12-04-2022 Patient encounter procedure Luis Mckenzie MD Work Phone: [facility] Start: 11-27-2022 End: 11-27-2022 ambulatory LUIS MCKENZIE Facility:[facility] Start: 11-23-2022 End: 11-23-2022 ambulatory Nathan Hathaway Other [employer] Other Start: 11-23-2022 Telephone encounter Nathan Hathaway [facility] Start: 11-16-2022 End: 11-17-[address] NATHAN HATHAWAY Facility:[facility] Start: 11-14-2022 End: 11-14-2022 ambulatory Nathan Hathaway Other [employer] Other Start: 11-14-2022 Office outpatient vi sit 25 minutes Nathan Hathaway [facility] Start: 09-11-2022 End: 09-12-[address] NATHAN HATHAWAY Facility:[facility] Start: 08-29-2022 Telephone encounter Juan Rico Hematology/Oncology Comment on above: Results Start: 08-28-2022 End: 08-28-2022 Subsequent hospital visit by physician Arrival Time Radiology Work Phone: Radiology [facility] Comment on above: 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] Start: 05-29-2022 End: 05-29-2022 Visit (SP) Office Luis Mckenzie MD Work Phone: Hematology/Oncology Comment on above: Abnormal SPEP (Prima ry Dx); Neuropathy - (NOS); Disorder of adrenal gland (HCC); Lung nodules Start: 05-23-2022 Telephone encounter Luis hernandez MD Work Phone: Hematology/Oncology Comment on above: Lab Orders Start: 05-04-2022 End: 05-04-[address] NATHAN HATHAWAY Facility:[facility] Start: 12-13-2021 Adult health examination Lauri Hathaway Other [employer] Other Procedures Date Procedure Procedure Detail Performing Clinician Start: 03-12-2024 NUCLEAR STRESS TEST DAYANA ROSADO Start: 03-12-2024 Cv strs tst xers&/or rx cont ecg trcg only Holden Rosado MANAGER GAME-FILLER OPERATOR Work Phone: Start: 10-17-2023 Basic metabolic 2000 panel - Serum or Plasma HOLDEN ROSADO Start: 10-17-2023 History of placement of stent for coronary artery disease S/P coronary artery stent placement Holden Rosado MANAGER GAME-FILLER OPERATOR Work Phone: Start: 05-17-2023 CT angiography of thorax DO Nathan [employer] Work Phone: Start: 05-17-2023 Duplex scan of lower limb veins DO Nathan [employer] Work Phone: Start: 03-09-2023 CL Ivus Initial Vessel DO Nathan [employer] Work Phone: Start: 03-09-2023 CL LHC & COR Angio DO B enjamin [employer] Work Phone: Start: 03-09-2023 CL Stent 1st Vessel LAD VALERI DO Nathan [employer] Work Phone: Start: 03-09-2023 CL Stent 1st Vessel RCA VALERI DO [employer] Work Phone: Start: 08-28-2022 Ct abdomen & pelvis w/contrast material Luis Mckenzie MD Work Phone: Start: 08-28-2022 Ct thorax w/contrast material Luis Mckenzie MD Work Phone: Start: 05-29-2022 Adult depression screening assessment Luis Mckenzie MD Work Phone: Start: 11-22-2021 Adult depression screening assessment Luis Mckenzie MD Work Phone: Start: 11-11-2018 Screening for malign ant neoplasm of colon Nathan [employer] Other Start: 10-12-2017 Screening for osteoporosis Nathan [employer] Other Depression screening Benjami n Isabel[facility] Other Hysterectomy Nathan Whitlock [employer] Work Phone: Screening for malign ant neoplasm of breast Nathan Hathaway Other Screening for malign ant neoplasm of breast Nathan Isabela Other Total colonoscopy Nathan E [employer] Work Phone: Comment on above: 2012; Plan of Treatment Date Care Activity Detail Author Start: 11-05-2026 Diabetes Screening Diabetes Screengail hare [facility] Start: 06-04-2026 DIABETES SCREEN DIABETES SCREEN [facility] Start: 11-27-2025 DIABETES SCREEN DIABETES SCREEN [facility] Start: 08-24-2025 DIABETES SCREEN DIABETES SCREEN [facility] Start: 05-22-2025 DIABETES SCREEN DIABETES SCREEN [facility] Start: 06-29-2024 Covid-19 Vaccine ( season) Covid-19 Vaccine () [facility] Start: 06-29-2024 Influenza vaccination [facility] Start: 04-21-2024 End: 04-21-2024 Patient encounter procedure 04/21/2024 10:30 AM EDT Office Visit [facility] [address] [place] [address] Holden Rosado, MANAGER GAME-FILLER OPERATOR [address] [place], [place] [id number] [facility] Start: 03-12-2024 End: 03-12-2024 Patient encounter procedure 03/12/2024 10:15 AM EDT Appointment [facility] [address] [facility] [address] [place] [id number] [facility] Start: 03-12-2024 End: 03-12-2024 [facility] Start: 03-05-2024 End: 03-05-2025 Basic metabolic 2000 panel - Serum or Plasma Basic Metabolic Panel Lab Routine Essential hypertension Expected: 03/05/2024 (Approximate), Expires: 03/05/2025 [facility] Work Phone: Comment on above: Expected: 03/05/2024 (Approximate), Expires: 03/05/2025 Start: 03-05-2024 End: 03-05-2026 NM Heart Perfusion W stress and W radionuclide IV Nuclear Stress Test Cardiac Nuclear Medicine Routine ASHD (arteriosclerotic heart disease) Expected: 03/05/2024 (Approximate), Expires: 03/05/2026 [facility] Service Area Work Phone: Comment on above: Expected: 03/05/2024 (Approximate), Expires: 03/05/2026 Start: 10-29-2023 Advance Directive Discussion Advance Directive Discussion [facility] Start: 09-18-2023 FUV, Provider: Edinson Perry, Status: Pen, Time: 11:20 AM FUV, Provider: Edinson Perry, Status: Pen, Time: 11:20 AM [facility] [facility] DO Work Phone: Start: 06-29-2023 COVID-19 Vaccine ( season) COVID-19 [address] () [facility] Start: 06-29-2023 Influenza vaccination INFLUENZA (#1) [facility] Start: 05-29-2023 Adult depression screening assessment DEPRESSION SCREENING [facility] Start: 05-29-2023 FUV, Provider: Edinson Perry, Status: Pen, Time: 10:20 AM FUV, Provider: Edinson Perry, Status: Pen, [facility]: 10:20 [facility] Work Phone: Start: 05-18-2023 [facility] Start: 05-17-2023 Hospital admission [facility] Start: 03-09-2023 [facility] Start: 01-13-2023 COVID-19 VACCINE (6 - Pfizer series) COVID-19 VACCINE (6 - Pfizer series) [facility] Start: 11-22-2022 Adult depression screening assessment DEPRESSION SCREENING [facility] Start: 10-29-2022 ADVANCE DIRECTIVE DISCUSSION ADVANCE DIRECTIVE DISCUSSION [facility] Start: 10-29-2022 DEPRESSION ASSESSMENT DEPRESSION ASS ESSMENT [facility] Start: 06-29-2022 Influenza vaccination INFLUENZA (#1) [facility] Start: 03-25-2022 COVID-19 VACCINE (5 - Booster for Pfizer series) COVID-19 VACCINE (5 - Booster for Pfizer series) [facility] Start: 10-29-2021 ADVANCE DIRECTIVE DISCUSSION ADVANCE DIRECTIVE DISCUSSION [facility] Start: 10-29-2021 DEPRESSION ASSESSMENT DEPRESSION ASS ESSMENT [facility] Start: 09-16-2021 Shingrix Vaccine (3 of 3) Shingrix Vaccine (3 of 3) [facility] Start: 09-16-2021 Zoster Vaccines (2 of 2) Zoste r Vaccines (2 of 2) [facility] Start: 07-16-2021 SHINGRIX VACCINE (2 of 2) SHINGRIX VACCINE (2 of 2) [facility] Start: 2017 RSV Vaccine (1 - 1-d ose 75+ series) RSV Vaccine (1 - 1-dose 75+ series) [facility] Start: 07-17-2014 DTaP/Tdap/Td Vaccine s (1 - Tdap) DTaP/Tdap/Td Vaccines (1 - Tdap) [facility] Start: 07-17-2014 Urine microalbumin profile DTaP,Tdap,Td Vaccine (1 - Tdap) [facility] Start: 2007 BONE DENSITY BONE DENSITY [facility] Start: 2007 PNEUMOCOCCAL: 65+ (1 - PCV) PNEUMOCOCCAL: 65+ (1 - PCV) [facility] Start: 2007 Screening for osteoporosis Bone Density Screening [facility] Start: 2002 RSV patient s and/or patients aged 60+ years (1 - 1-dose 60+ series) RSV patients and/or patients aged 60+ years (1 - 1-dose 60+ series) [facility] Start: 1961 Urine microalbumin profile DTAP,TDAP,TD (1 - Tdap) [facility] Start: 1960 Anxiety Screening Anxiety Screening [facility] Start: 1960 Depression Screening Depression Scre ening [facility] Start: 1942 Lipid panel Lipid Panel [facility] Start: 1942 Medicare Annual Well ness Visit Medicare Annual Wellness Visit (AWV) [facility] Start: 1942 Screening for osteoporosis Bone Density Scan [facility] Comprehensive metabo lic 2000 panel - Serum or Plasma [facility] End: 06-28-2023 Ct abdomen & pelvis w/contrast material CT ABD/PEL W IVCON Radiology Routine Disorder of adrenal gland (HCC) 1 Occurrences starting 05/29/2022 until 06/28/2023 [facility] Work Phone: Comment on above: 1 Occurrences starti ng 05/29/2022 until 06/28/2023 End: 06-28-2023 CT CHEST W IVCON CT CHEST W IVCON Radiology Routine Lung nodules 1 Occurrences starting 05/29/2022 until 06/28/2023 [facility] Work Phone: Comment on above: 1 Occurrences starti ng 05/29/2022 until 06/28/2023 Patient Education [facility] Work Phone: Patient referral [facility]: [facility] Immunizations Immunization Date Immunization Notes Care Provider Dara davis 07-16-2024 influenza, high dose seasonal, preservative-free [facility] 08-06-2023 influenza virus vaccine, unspecified formulation [facility] 08-06-2023 influenza, high dose seasonal, preservative-free Nathan Hathaway Other [facility] [employer] Other 09-15-2022 COVID-19 Pfizer (Pediatric) Nathan Hathaway Other [facility] 09-15-2022 Pfizer COVID-19 Vac Bivalent 30 MCG/0.3ML Intramuscular Suspension Nathan Hathaway Work Phone: [facility] 08-11-2022 influenza virus vaccine, split virus (incl. purified surface antigen) Nathan Hathaway Other [facility] [employer] Other 08-11-2022 influenza virus vaccine, unspecified formulation [facility] 01-28-2022 COVID-19 mRNA, Comirnaty (Pfizer) DO Nathan Hathaway Work Phone: [facility] 01-28-2022 COVID-19 Pfizer Nathan mihcelle Other [facility] 07-30-2021 COVID-19 vaccine, ag e 12+ yr (CicerOOs-Practice Fusion - PURPLE TOP) Luis Mckenzie MD Work Phone: [facility] 07-22-2021 zoster vaccine, live Benjami n Isabela Other [facility] 07-19-2021 influenza, high-dose , quadrivalent vaccine (FLUZONE HIGH DOSE QUADRIVALENT) Luis Mckenzie MD Work Phone: [facility] 07-18-2021 influenza virus vaccine, split virus (incl. purified surface antigen) Nathan Hathaway Other [facility] [employer] Other 07-18-2021 influenza virus vaccine, unspecified formulation [facility] 05-21-2021 zoster vaccine recombinant Luis Mckenzie MD Work Phone: [facility] 05-21-2021 zoster vaccine, live Benjami n Isabela Other [facility] 12-18-2020 COVID-19 vaccine, ag e 12+ yr (PFIZER-BIONTECH - PURPLE TOP) Luis Mckenzie MD Work Phone: [facility] 11-27-2020 COVID-19 Vaccine Moderna - Documentation Purposes Only Nathan Hathaway Other [facility] 11-27-2020 COVID-19 vaccine, ag e 12+ yr (PFIZER-BIONTECH - PURPLE TOP) Luis Mckenzie MD Work Phone: [facility] 08-11-2020 influenza virus vaccine, split virus (incl. purified surface antigen) Nathan Hathaway Other [facility] [employer] Other 08-11-2020 influenza virus vaccine, unspecified formulation [facility] 07-09-2019 AS03 adjuvant Arrival Radiol ogy Work Phone: [facility] 07-09-2019 Seasonal trivalent influenza vaccine, adjuvanted, preservative free Luis Mckenzie MD Work Phone: [facility] 08-13-2018 AS03 adjuvant Arrival Radiol ogy Work Phone: [facility] 08-13-2018 influenza virus vaccine, split virus (incl. purified surface antigen) Nathan Hathaway Other [facility] [employer] Other 08-13-2018 influenza virus vaccine, unspecified formulation [facility] 08-13-2018 Seasonal trivalent influenza vaccine, adjuvanted, preservative free Luis Mckenzie MD Work Phone: [facility] 08-03-2017 influenza virus vaccine, split virus (incl. purified surface antigen) Nathan Hathaway Other [facility] [employer] Other 08-03-2017 influenza virus vaccine, unspecified formulation [facility] 08-03-2017 influenza, high dose seasonal, preservative-free Luis Mckenzie MD Work Phone: [facility] 07-13-2016 influenza virus vaccine, split virus (incl. purified surface antigen) Nathan Hathaway Other [facility] [employer] Other 07-13-2016 influenza virus vaccine, unspecified formulation [facility] 09-13-2015 pneumococcal conjuga te vaccine, 13 valent Nathan Hathaway Other [facility] 08-17-2015 influenza virus vaccine, split virus (incl. purified surface antigen) Nathan Hathaway Other [facility] [employer] Other 08-17-2015 influenza virus vaccine, unspecified formulation [facility] 07-16-2014 tetanus and diphther ia toxoids, adsorbed, preservative free, for adult use (5 Lf of tetanus toxoid and 2 Lf of diphtheria toxoid) Nathan Hathaway Other [facility] 07-09-2013 tetanus and diphther ia toxoids, adsorbed, preservative free, for adult use (5 Lf of tetanus toxoid and 2 Lf of diphtheria toxoid) Nathan Hathaway Other [facility] 08-11-2010 pneumococcal polysaccharide vaccine, 23 valent Nathan Hathaway Other [facility] Payers Date Payer Category Payer Self-pay 2022 Unknown 2020 Private Health Insurance [facility] AARP SUPPLEMENT [id number] 2020-Present [phone] [address] [place] [address] Indemnity [id number] 2020 Private Health Insurance [facility] AARP SUPPLEMENT [id number] 2020-Present [phone] [address] [place] [address] Indemnity [id number] 2007 Medicare MEDICARE MEDICAR E A AND B [id number] 2007-Present [phone] [place] [address] Medicare [id number] 2007 Medicare [id number] 1959 Medicare [id number] 1959 Unknown [id number] 2.16.840.1.074652.19 1942 Unknown [id number] 2.16.840.1.647359.3.579.2 .593 1942 Unknown [id number] 2.16.840.1.689972.3.579.2 .593 1942 Unknown [id number] 2.16.840.1.802680.3.579.2 .593 1942 Unknown [id number] 2.16.840.1.899293.3.579.2 .593 1942 Unknown [id number] 2.16.840.1.863925.3.579.2 .593 1942 Unknown [id number] 2.16.840.1.887506.3.579.2 .593 1942 Unknown [id number] 2.16.840.1.868747.3.579.2 .593 1942 Unknown [id number] 2.16.840.1.468638.3.579.2 .356 1942 Unknown [id number] 2.16.840.1.733009.3.579.2 .356 1942 Unknown [id number] 2.16.840.1.541962.3.579.2 .1246 1942 Unknown [id number] 2.16.840.1.834449.3.579.2 .1246 1942 Unknown [id number] 2.16.840.1.692910.3.579.2 .1246 1942 Unknown [id number] 2.16.840.1.262924.3.579.2 .1246 1942 Unknown [id number] 2.16.840.1.503088.3.579.2 .1246 1942 Unknown [id number] 2.16.840.1.124390.3.579.2 .1244 1942 Unknown [id number] 2.16.840.1.980007.3.579.2 .1244 1942 Unknown [id number] 2.16.840.1.172377.3.579.2 .1244 1942 Unknown [id number] 2.16.840.1.482242.3.579.2 .1259 Medicare Medicare Outpatient [id number] Unknown [id number] Unknown [id number] 2.16.840.1.611743.3.579.2 .531 Unknown [id number] 2.16.840.1.512393.3.579.2 .531 Unknown [id number] 2.16840.1.759378.3.579.2 .531 Social History Date Type Detail Facility Start: 08-01-2021 End: 02-27-2024 Tobacco smoking status NHIS Ex-smoker [facility] End: 10-29-1979 History of tobacco use Cigarette Smoker [facility] Start: 08-01-2021 End: 03-05-2024 Tobacco use and exposure Smokeless tobacco non-user [facility] Start: 1942 Sex Assigned At Not on file [facility] Start: 05-12-2022 End: 03-12-2024 Exposure to SARS-CoV-2 (event) Not sure [facility] End: 10-29-1979 History of tobacco use Current smoker [facility] Start: 05-29-2022 End: 06-04-2023 Sex Assigned At [facility] Start: 05-29-2022 End: 06-04-2023 No illicit drug use No illicit drug use [facility] Comment on above: 2 coffees in am and 1 coffee at hs; 1997; Start: 1940 Sex Assigned At Female F [facility] Start: 06-04-2023 Alcohol intake Ex-drinker (finding) [facility] Adult Depression Screening Assessment 0 [facility] Start: 12-18-2023 Tobacco smoking stat us [facility] Never smoked tobacco (finding) [facility] Start: 03-05-2024 Alcoholic beverage intake Lifetime non-drinker (finding) [facility] Work Phone: Start: 09-11-2024 Sex Female (finding) [facility] Medical Equipment Procedure Code Equipment Code Equipment Origin al Text Equipment Identifier Dates CL STENT WILLIE FRONTIER 2.5 X 18 FDA Start: 03-09-2023 CL STENT WILLIE FRONTIER 4.0 X 15 FDA Start: 03-09-2023 CL STENT WILLIE FRONTIER 4.0 X 18 FDA Start: 03-09-2023 CL STENT WILLIE FRONTIER 2.5 X 18 FDA Start: 03-09-2023 CL STENT WILLIE FRONTIER 4.0 X 15 FDA Start: 03-09-2023 CL STENT WILLIE FRONTIER 4.0 X 18 FDA Start: 03-09-2023 CL STENT WILLIE FRONTIER 2.5 X 18 FDA Start: 03-09-2023 CL STENT WILLIE FRONTIER 4.0 X 15 FDA Start: 03-09-2023 CL STENT WILLIE FRONTIER 4.0 X 18 FDA Start: 03-09-2023 CL STENT WILLIE FRONTIER 2.5 X 18 FDA Start: 03-09-2023 CL STENT WILLIE FRONTIER 4.0 X 15 FDA Start: 03-09-2023 CL STENT WILLIE FRONTIER 4.0 X 18 FDA Start: 03-09-2023 CL STENT WILLIE FRONTIER 2.5 X 18 FDA Start: 03-09-2023 CL STENT WILLIE FRONTIER 4.0 X 15 FDA Start: 03-09-2023 CL STENT WILLIE FRONTIER 4.0 X 18 FDA Start: 03-09-2023 CL STENT WILLIE FRONTIER 2.5 X 18 FDA Start: 03-09-2023 CL STENT WILLIE FRONTIER 4.0 X 15 FDA Start: 03-09-2023 CL STENT WILLIE FRONTIER 4.0 X 18 FDA Start: 03-09-2023 CL STENT WILLIE FRONTIER 2.5 X 18 FDA Start: 03-09-2023 CL STENT WILLIE FRONTIER 4.0 X 15 FDA Start: 03-09-2023 CL STENT WILLIE FRONTIER 4.0 X 18 FDA Start: 03-09-2023 Goals Date Patient Goal Desired Activity /State Functional Status Date Assessment Result Facility 05-18-2023 Functional status Patient at Baseline [facility] Work Phone: 03-09-2023 Functional status Patient at Baseline [facility] Work Phone: Mental Status Date Assessment Result Facility 05-18-2023 Cognitive function Cognitive Sta tus Patient at Baseline [facility] Work Phone: 03-09-2023 Cognitive function Cognitive Sta tus Patient at Baseline [facility] Work Phone: Clinical Notes 05-29-2022 to 03-06-2024 Assessment & Plan Note - CINTIA Gallego - 03/06/2024 10:42 AM EDTAssessment & Plan Note - CINTIA Gallego - 03/06/2024 10:42 AM EDTPatient Instructions Note Date & Type Note Facility 03-06-2024 Evaluation + Plan note Associated Problem(s): BMI 32.0-32.9,adult Reviewed the merits of healthy lifestyle choices on overall cardiovascular health. [facility] Work Phone: 03-06-2024 Evaluation + Plan note Associated Problem(s): Hyperlipidemia High intensity statin January 2024 HDL 42, cholesterol 158 [facility] Work Phone: 03-06-2024 Miscellaneous Notes Associated Problem(s): BMI 32.0-32.9,adult Reviewed the merits of healthy lifestyle choices on overall cardiovascular health. Associated Problem(s): Hyperlipidemia High intensity statin January 2024 HDL 42, cholesterol 158 Associated Problem(s): Essential hypertension Optimal in office Associated Problem(s): ASHD (arteriosclerotic heart disease) March 09, 2023 Mid/proximal RCA PCI/Calvin 4x15mm & 4x18mm Proximal diagonal PCI/Calvin 2.5 x 18 mm LAD 10% Circumflex normal LVEF 65% documented in this encounter [facility] Work Phone: 03-06-2024 Evaluation + Plan note Associated Problem(s): Essential hypertension Optimal in office [facility] Work Phone: 03-06-2024 Evaluation + Plan note Associated Problem(s): ASHD (arteriosclerotic heart disease) March 09, 2023 Mid/proximal RCA PCI/Calvin 4x15mm & 4x18mm Proximal diagonal PCI/Willie 2.5 x 18 mm LAD 10% Circumflex normal LVEF 65% [facility] Work Phone: 03-05-2024 History of Presen t illness Narrative Chief Complaint I am just not feeling good Reason for Visit Patient presents to the office today for outpatient follow-up for hospital follow-up. Last evaluated in clinic by Dr. Perry September 2023. January 2024: Hospitalized at [facility] due to accelerated hypertension and bradycardia. She was seen by [place] cardiology. Inpatient echo showed EF greater than 55%, mild biatrial enlargement and RVSP of 41 mmHg. There was no documented significant dysrhythmia. Heart rates were reportedly in the 40s. She was initiated on Entresto and nifedipine. Prior dose of Avapro should have been discontinued. Her dose of carvedilol was also discontinued. Presents today ambulatory with steady gait. Accompanied by child History of Present Illness Patient is a pleasant 83-year-old female who presents to the office today is somewhat of a difficult historian. She really is not clear as to why she was sent to the emergency department. There were some phone calls into our office reporting wheezing and shortness of breath. The daughter reports she had been seen by PCP and blood pressure was elevated and heart rate was low -some documentation of blood pressure being 200/80 during hospitalization. She is tearful in the office regarding the care she received during the hospitalization. She has been home now for approximately 2 weeks. Reportedly potted some moy over the weekend and had pain between her shoulder blades . She related this to bending over and planting the moy. She then goes on to report that her PCI symptom was pain between her shoulder blades. She reports that she felt so much better after her stents but over the last 2 months she has noted a steady decline. She reportedly completed cardiac rehab 2 months ago. Prior to hospitalization she had 2 episodes of what sounds like PND. She occasionally goes down to the stairs to her basement without complaints. Overall she just reports a change in exercise capacity, fatigability and just no ambition . Explained to daughter and patient rationale behind discontinuation of Coreg due to bradycardia. Both Entresto and Avapro are on her medication list today. She is confused as to what she is taking at home. They will verify and notify office. Otherwise, she is very anxious and worried about her recent decline in functional capacity. Discussed noninvasive ischemic evaluation with perfusion study, will be able to assess blood pressure with exercise at that time and chronotropic response. Both patient and daughter are much relieved and appreciated with this approach. If perfusion study is unremarkable then we will refer her back over to cardiac rehab. She is taking Lasix and potassium once daily in the morning. She uses the afternoon dose as needed and has rarely been utilizing. All questions and concerns have been addressed. Patient reports that overall has no complaint(s) of dyspnea, irregular heart beat, lower extremity edema, orthopnea, and palpitations or has complaint(s) of chest pressure/discomfort and fatigue. Review of Systems Constitutional: Positive for malaise/fatigue. Cardiovascular: Positive for chest pain. Negative for dyspnea on exertion, irregular heartbeat, leg swelling, near-syncope, orthopnea, palpitations, paroxysmal nocturnal dyspnea and syncope. Visit Vitals BP 120/68 (BP Location: Left arm, Patient Position: Sitting) Pulse 62 Ht 1.651 m (5' 5 ) Wt 88.9 kg (196 lb) BMI 32.62 kg/m Smoking Status Former BSA 2.02 m Physical Exam Vitals and nursing note reviewed. HENT: Head: Normocephalic. Cardiovascular: Rate and Rhythm: Normal rate and regular rhythm. Heart sounds: Normal heart sounds. Pulmonary: Effort: Pulmonary effort is normal. Breath sounds: Normal breath sounds. Abdominal: Palpations: Abdomen is soft. Musculoskeletal: Right lower leg: No edema. Left lower leg: No edema. Skin: General: Skin is warm and dry. Neurological: General: No focal deficit present. Mental Status: She is alert. Psychiatric: Mood and Affect: Mood normal. Behavior: Behavior normal. Allergies Allergen Reactions Bactrim [Sulfamethoxazole-Trimethoprim] Hives Zithromax Z-Tim [Azithromycin] Swelling Tongue swelling Current Outpatient Medications Medication Instructions ALPRAZolam (NIRAVAM) 0.25 mg, oral, Nightly PRN aspirin 81 mg, oral, Daily clopidogrel (PLAVIX) 75 mg, oral, Daily Entresto 24-26 mg tablet 1 tablet, oral, 2 times daily furosemide (LASIX) 20 mg, oral, 2 times daily gabapentin (NEURONTIN) 100 mg, oral, 2 times daily NIFEdipine ER (ADALAT CC) 30 mg, oral, Daily pantoprazole (PROTONIX) 40 mg, oral, Daily before breakfast, Do not crush, chew, or split. potassium chloride CR 10 mEq ER tablet 10 mEq, oral, 2 times daily, Do not crush, chew, or split. rosuvastatin (CRESTOR) 40 mg, oral, Daily temazepam (RESTORIL) 15 mg, oral, Nightly PRN Assessment: An 83-year-old female presents today with a 2-month history of functional decline, change in exercise capacity. Reports exertional pain between shoulder blades that may be reminiscent of prior PCI symptoms. No nitroglycerin usage. Confusion regarding polypharmacy. ASHD (arteriosclerotic heart disease) March 09, 2023 Mid/proximal RCA PCI/Calvin 4x15mm & 4x18mm Proximal diagonal PCI/Willie 2.5 x 18 mm LAD 10% Circumflex normal LVEF 65% Essential hypertension Optimal in office Hyperlipidemia High intensity statin January 2024 HDL 42, cholesterol 158 BMI 32.0-32.9,adult Reviewed the merits of healthy lifestyle choices on overall cardiovascular health. Plan: Through informed decision making process incorporating patients unique circumstances, the following treatment plan will be initiated: 1. Prescription drug management of cardiovascular medication for efficacy, adherence to treatment, side effect assessment and polypharmacy. Current treatment clinically warranted and to continue without modifications. 2. Lexiscan MPI (RODGERS, fatigue) no treadmill due to weakness, OA 3. Labs (chem6) 4. Return for follow-up; in the interim, contact the office if new symptoms arise. ANALYTICS ARCHITECT after testing Holden Rosado MSN, MANAGER GAME-FILLER OPERATOR, PMHNP-BC [facility] Please excuse any errors in grammar or translation related to this dictation. Voice recognition software was utilized to prepare this document. documented in this encounter [facility] Work Phone: 03-05-2024 Instructions CINTIA Gallego - 03/05/2024 11:30 AM EDT Please bring all medicines, vitamins, and herbal supplements with you when you come to the office. Prescriptions will not be filled unless you are compliant with your follow up appointments or have a follow up appointment scheduled as per instruction of your physician. Refills should be requested at the time of your visit. PLAN: Through informed decision making process incorporating patients unique circumstances, the following treatment plan will be initiated: 1. Prescription drug management of cardiovascular medication for efficacy, adherence to treatment, side effect assessment and polypharmacy. Current treatment clinically warranted and to continue without modifications. 2. Lexiscan MPI (RODGERS, fatigue) no treadmill due to weakness, OA 3. Labs (chem6) 4. Return for follow-up; in the interim, contact the office if new symptoms arise. ANALYTICS ARCHITECT after testing documented in this encounter [facility] Work Phone: 11-27-2023 Evaluation note Encounter Date Diagnosis Assessment Notes Oct, Primary insomnia (ICD-10 - F51.01) [facility] Other 01-08-2024 NoteHNO ID: [id number] Author: PAOLO CASILLAS APRN.CNP Service: ? Author Type: Nurse Practitioner Type: Progress Notes Filed: 11/07/2023 12:22 Note Text: PATIENT NAME: Lashaun Joaquin DATE: 11/05/2023 PRIMARY CARE PHYSICIAN: Dr. Nathan Hathaway OTHER PHYSICIANS: Dr. 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 [facility] Other 11-29-2023 Evaluation note* Encounter Date Diagnosis Assessment Notes Treatment Notes Treatment Clinical Notes Aug, Chronic venous insufficiency (ICD-10 - I87.2) [facility] Other 11-24-2023 Evaluation note* Encounter Date Diagnosis Assessment Notes Treatment Notes Treatment Clinical Notes Aug, Subacute cough (ICD-10 - R05.2) Aug, Dyspnea on exertion (ICD-10 - R06.09) [facility] Other 11-20-2023 Evaluation note* Encounter Date Diagnosis Assessment Notes Treatment Notes Treatment Clinical Notes Aug, Chronic venous insufficiency (ICD-10 - I87.2) [facility] Other 11-16-2023 Evaluation note* Encounter Date Diagnosis Assessment Notes Treatment Notes Treatment Clinical Notes Aug, Chronic venous insufficiency (ICD-10 - I87.2) [facility] Other 11-14-2023 Evaluation note* Encounter Date Diagnosis Assessment Notes Treatment Notes Treatment Clinical Notes Aug, Acute bronchitis due to other specified organisms (ICD-10 - J20.8) Instructed to use Robitussin or Mucinex for cough, saline or Flonase NS for congestion, Tylenol for pain and fever. Aug, Chronic obstructive pulmonary disease with (acute) exacerbation (ICD-10 - J44.1) Begin using EDEL as needed to mobilize secretions. [facility] Other 10-19-2023 Evaluation note* Encounter Date Diagnosis Assessment Notes Treatment Notes Treatment Clinical Notes Jul, Aphthous ulcer (ICD-10 - K12.0) [facility] Other 09-20-2023 Evaluation note* Encounter Date Diagnosis Assessment Notes Treatment Notes Treatment Clinical Notes Jun, Dysuria (ICD-10 - R30.0) [facility] Other 09-19-2023 Evaluation note* Encounter Date Diagnosis Assessment Notes Treatment Notes Treatment Clinical Notes Jun, Dysuria (ICD-10 - R30.0) [facility] Other 08-28-2023 Evaluation note* Encounter Date Diagnosis Assessment Notes Treatment Notes Treatment Clinical Notes May, Chronic venous insufficiency (ICD-10 - I87.2) [facility] Other 08-24-2023 Evaluation note* Encounter Date Diagnosis Assessment Notes Treatment Notes Treatment Clinical Notes May, Primary insomnia (ICD-10 - F51.01) [facility] Other 08-21-2023 Evaluation note* Encounter Date Diagnosis Assessment Notes Treatment Notes Treatment Clinical Notes May, Diastolic hypertension (ICD-10 - I10) [facility] Other 08-18-2023 Evaluation note* Encounter Date Diagnosis Assessment Notes Treatment Notes Treatment Clinical Notes May, Primary hypertension (ICD-10 - I10) [facility] Other 08-18-2023 Evaluation note* Encounter Date Diagnosis Assessment Notes Treatment Notes Treatment Clinical Notes May, Diastolic hypertension (ICD-10 - I10) [facility] Other 08-11-2023 Evaluation note* Encounter Date Diagnosis [...] and feet daily for blisters and ulcerations. [facility] Other 08-09-2023 Miscellaneous Notes* Telephone Encounter - [...] can further discuss then. [facility] NoteHNO ID: [id number] Author: Luis Mckenzie MD Service: ? Author Type: Physician Type: Progress Notes Filed: 06/06/2023 6:33 AM Note Text: PATIENT NAME: Lashaun Joaquin DATE: 06/04/2023 PRIMARY CARE PHYSICIAN: Nathan Hathaway, OTHER PHYSICIANS: Dr. Perry Portions of this encounter note have been [...] shortness of breath and was hospitalized at [facility] and treated for suspected pneumonia. Apparently it was later felt she had heart disease, and cardiac catheterization revealed severe coronary artery disease. She subsequently underwent stent placement at [facility]. Apparently her shortness of breath persisted, and [...] extremities and face. Ne (more content not included)...[facility]08-07-2023 History of Present illness Narrative* Luis Mckenzie MD - 06/04/2023 7:38 AM EDT PATIENT NAME: Lashaun Joaquin DATE: 06/04/2023 PRIMARY CARE PHYSICIAN: Nathan Hathaway, OTHER PHYSICIANS: Dr. Perry Portions of this encounter note have been [...] shortness of breath and was hospitalized at [facility] and treated for suspected pneumonia. Apparently it was later felt she had heart disease, and cardiac catheterization revealed severe coronary artery disease. She dumont bsequently underwent stent placement at [facility]. Apparently her shortness of breath persisted, and [...] shortness of breath and was hospitalized at [facility] treated for suspected pneumonia. Apparently it was later felt she had heart disease, and cardiac catheterization revealed severe coronary artery disease. She subsequently underwent stent placement at [facility]. April 2023 she developed severe shortness of breath and was hospitalized at [facility] 05/17/2023with CHF. She improved with diuresis but has ongoing dyspnea. Continue management per PCP/cardiology. 6. Anemia - ICD9: 285.9, ICD10: D64.9 Labs April 2023 revealed normocytic anemia with a hemoglobin approximately 9. Differential diagnosisincludes iron deficiency, B12 deficiency, folate deficiency, anemia chronic disease , or a bone marrow disorder. Will check additional labs and further evaluate as indicated. Luis Mckenzie MD CC: Dr. Perry documented [facility] Evaluation note* Encounter Date Diagnosis Assessment Notes [...] dependence, cigarettes, in remission (ICD-10 - F17.211) [facility] Other 07-21-2023 Discharge summary Author Lj Ryan [facility] May 18, 2023 11:44am Note Date/Time May 18, 2023 11:4 4am [facility] [address] [place] [address] Discharge Summary Signed Patient: Lashaun Joaquin MR#: [id number] : 1940 Acct:[id number] Age/Sex: 82 / F Adm Date: 3 Loc: Room: [address] [place] [address]: Lj Ryan DO Copies to: [...] % (Auto) 73.6, Lymph % (Auto) 15.1, Angelina % (Auto) 8.7, Eos % (Auto) 1.9, Baso % (Auto) 0.7, Nucleat RBC Rel Count 0.1, Neut # (Auto) 4.4, Lymph # (Auto) 0.9 L, Angelina # (Auto) 0.5, Eos # (Auto) 0.1, [...] signed by Lj Ryan DO> 05/18/23 [address] [facility] Work Phone: 1(951) 625-315907-20-2023 History and physical note Author Lj Ryan [facility] May 17, 2023 3:56pm Note Date/Time May 17, 2023 3:49 pm [facility] [address] [place] [address] Hospitalist H&P Signed Patient: Lashaun Joaquin MR#: [id number] : 1940 Acct:[id number] Age/Sex: 82 / F Adm Date: 3 Loc: Room: [address] [place] [address] Type: ADM INOo Attending Dr: Lj Ryan [...] negative unless noted below or in HPI [facility] Medical History (Updated 05/17/23 @ 15:50 by [...] % (Auto) 9.3 % (.) 05/17/23 10:25 Angelina % (Auto) 5.5 % (.) 05/17/23 10:25 Eos % (Auto) 0.5 % (.) 05/17/23 10:25 Baso % (Auto) 0.5 % (.) 05/17/23 10:25 Nucleat RBC Rel Count 0.0 /100 WBC (0-0.5) 05/17/23 10:25 Neut # (Auto) 8.6 x10E3/uL (1.8-7.7) H 05/17/23 10:25 Lymph # (Auto) 1.0 x10E3/uL (1.00-4.8) 05/17/23 10:25 Angelina # (Auto) 0.6 x10E3/uL (0.0-0.8) 05/17/23 10:25 [...] 1 Documented By: Lj Ryan DO 05/17/23 0513 Signed By: <Electronically signed by Lj Ryan DO> 05/17/23 86[address] [facility] Work Phone: 1(687) 457-262307-19-2023 Evaluation note* Encounter Date Diagnosis Assessment Notes [...] [BMI ] 33.0-33.9, adult (ICD-10 - Z68.33) [facility] Other 07-12-2023 Evaluation note* Encounter Date Diagnosis [...] dependence, cigarettes, in remission (ICD-10 - F17.211) [facility] Other 06-29-2023 Evaluation note* Encounter Date Diagnosis Assessment Notes Treatment Notes Treatment Clinical Notes Mar, Paronychia of finger of right hand (ICD-10 - L03.011) [facility] Other 06-29-2023 Evaluation note* Encounter Date Diagnosis [...] healthy diet. Mar, Paresthesias (ICD-10 - R20.2) [facility] Other 06-21-2023 Evaluation note* Encounter Date Diagnosis [...] post PCI/stent placement. Continue for 12 months [facility] Other 06-21-2023 Evaluation note* Encounter Date Diagnosis Assessment Notes Treatment Notes Treatment Clinical Notes Mar, Chronic bronchitis, simple (ICD-10 - J41.0) [facility] Other 05-30-2023 Evaluation note* Encounter Date Diagnosis Assessment Notes Treatment Notes Treatment Clinical Notes February, Paresthesias (ICD-10 - R20.2) [facility] Other 05-18-2023 Evaluation note* Encounter Date Diagnosis [...] Titrate Gabapentin and monitor for fluid retention [facility] Other 05-08-2023 Evaluation note* Encounter Date Diagnosis Assessment Notes Treatment Notes Treatment Clinical Notes February, Primary hypertension (ICD-10 - I10) February, Chronic venous insufficiency (ICD-10 - I87.2) [facility] Other 04-19-2023 Evaluation note* Encounter Date Diagnosis [...] pain, change in appetite or bowel habits [facility] Other 04-16-2023 Evaluation note* Encounter Date Diagnosis [...] chronic diastolic heart failure (ICD-10 - I50.33) [facility] Other 04-07-2023 Evaluation note* Encounter Date Diagnosis [...] Diet and exercise with continued statin therapy. [facility] Other 02-23-2023 Evaluation note* Encounter Date Diagnosis Assessment Notes Treatment Notes Treatment Clinical Notes Nov, Primary insomnia (ICD-10 - F51.01) [facility] Other 02-16-2023 Evaluation note* Encounter Date Diagnosis [...] mammogram for breast cancer (ICD-10 - Z12.31) [facility] Other 02-06-2023 NoteHNO ID: [id number] Author: Luis Mckenzie MD Service: ? Author [...] respiratory effort, and percussion. (more content not included)...[facility]02-06-2023 History of Present illness Narrative* Luis Mckenzie [...] PCP. Luis Mckenzie MD documented in this [facility]01-17-[facility]23 Evaluation note* Encounter Date Diagnosis Assessment Notes [...] or drinking prior to bedtime. Weight loss. [employer] Other 11-01-2022 Miscellaneous Notes* Telephone Encounter - [...] see her back as scheduled in November MARBIN rFeeman documented in this [facility]10-31-[facility]22 History of Present illness Narrative* Nancy Andrade RN - 08/28/2022 12:15 PM EDT Radiology Service Progress Note DATE OF SERVICE: August 28, 2022 TIME: 12:44 PM PATIENT WEIGHT: 196 LBS PATIENT IDENTITY VERIFICATION COMPLETED USING TWO (2) STANDARD IDENTIFIERS: Name and Date of confirmed by patient verbally. FALL SCREENING: Has the patient had 2 falls in the last year or 1 fall with injury or currently using an Ambulatory Assistive Device (Walker, Cane, Wheelchair, Crutches, etc.)? No PATIENT GENDER DATA: Female. status: : No status: NO. ALLERGIES: Reviewed and unchanged CONTRAST ALLERGY: No EXAM: CT -CONTRAST INDUCED NEPHROPATHY RISK FACTORS: Patient age > 60 years CREATININE: Creatinine Date Value Ref Range Status 08/24/2022 0.92 0.58 - 0.96 mg/dL Final 05/22/2022 0.96 0.58 - 0.96 mg/dL Final 11/15/2021 1.00 (H) 0.58 - 0.96 mg/dL Final Estimated Glomerular Filtration Rate Date Value Ref Range Status 08/24/2022 63 >=60 mL/min/1.73m Final Comment: Estimated Glomerular Filtration Rate (eGFR) is calculated using the 2020 CKD-EPI creatinine equation. This equation utilizes serum creatinine, sex, and age as parameters. The creatinine assay has traceable calibration to isotope dilution- mass spectrometry. Refer to KDIGO guidelines for clinical interpretation. In patients with unstable renal function, e.g. those with acute kidney injury, the eGFRmay not accurately reflect actual GFR. eGFR- Date Value Ref Range Status 11/15/2021 >60 Final P.O.C.T. RESULTS: POC done: Yes, See Lab Tab August 24, 2022 TREATMENT: No Hydration needed. IV SITE: Ambulatory: A peripheral IV was started in the Right antecubital site with a Angio cath: 22 gauge. IV SITE APPEARANCE: Clean,Dry and Intact SIGNATURE: Nancy Andrade RN PATIENT NAME: Lashaun Joaquin DATE: August 28, 2022 TIME: 12:44 PM * Shirlene Miles, RT(R) - 08/28/2022 12:15 PM EDT Radiology Service Progress Note PATIENT NAME: Lashaun Joaquin DATE OF SERVICE: August 28, 2022 TIME: 12:49 PM PATIENT IDENTITY VERIFICATION COMPLETED USING TWO (2) IDENTIFIERS: Name and Date of confirmedby patient verbally. FALL SCREENING: Has the patient had 2 falls in the last year or 1 fall with injury or currently using an Ambulatory Assistive Device (Walker, Cane, Wheelchair, Crutches, etc.)? No PATIENT GENDER DATA: Female. status: : No status: NO. PATIENT RELEVANT IMPLANT DATA REVIEWED: Not Applicable RADIOLOGY DEPARTMENT: CT; Exam(s) Completed: Chest Abdomen Pelvis PERIPHERAL IV DATA: Site assessment: Clean,Dry and Intact, Site disposition Discontinued SIGNED BY: RT Emmanuel(R) August 28, 2022 12:49 PM documented in this encounterW[facility]08-01-2022 History of Present illness Narrative* Luis Mckenzie [...] PCP. Luis Mckenzie MD documented in [facility] Narrative - Reported * LASHAUN JOAQUIN is being seen for a consultation for abnormal test(s) results. * 82-year-old female seen in cardiology consultation at the request of Dr. Natalio hathaway for recent episode of respiratory distress, what sounds like congestive heart failure associated with accelerated hypertension, was admitted to [facility] briefly, diuresed approximately 14 pounds with diuretics. [...] and proceed with heart cath this Sunday -Merged With [facility] [address] DO Work Phone: Evaluation note* Diagnosis Abnormal SPEP- Primary Other nonspecific findings on examination of blood Neuropathy - (NOS) 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 Lung nodules Other nonspecific abnormal finding of lung field [facility] Diagnosis Abnormal SPEP- Primary Other nonspecific findings on examination of blood Neuropathy - (NOS) Lung nodules Other nonspecific abnormal finding of lung field documented in this encounter [facility] Hospital[facility] noteNo InformationNoparkland health center [employer] Other Evaluation noteNo assessment information available [facility] Work Phone: Evaluation note* Diagnosis Onset Date Resolution Status Flash pulmonary edema acute Heart failure acute Hypertension acute Hypertensive emergency acute Hypoxia acute [facility] Work Phone: Evaluation note* Diagnosis Abnormal SPEP- Primary Other nonspecific findings on examination of blood Anemia, unspecified type Neuropathy - (NOS) Heart disease Heart disease, unspecified [facility]* Diagnosis Onset Date Resolution Status ASHD (arteriosclerotic heart disease) acute Chronic diastolic heart failure acute Chronic venous insufficiency acute Elevated cholesterol acute Essential hypertension acute OMAR (generalized anxiety disorder) acute Gastroesophageal reflux dise ase with esophagitis without hemorrhage acute 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 [facility] Work Phone: Evaluation note* Diagnosis Onset Date Resolution Status ASHD (arteriosclerotic heart disease) acute Chronic diastolic heart failure acute Chronic venous insufficiency acute Elevated cholesterol acute Essential hypertension acute OMAR (generalized anxiety disorder) acute Gastroesophageal reflux dise ase with esophagitis without hemorrhage acute 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 Medicare annual wellness visit, subsequent noneactive Eustachian tube dysfunction acute Right otitis media acute [facility] Work Phone: Evaluation note* Diagnosis ASHD (arteriosclerotic heart disease)- Primary Coronary atherosclerosis of unspecified type of vessel, [place] or graft Essential hypertension Unspecified essential hypertension Mixed hyperlipidemia BMI 32.0-32.9,adult documented in this encounter [facility] Work Phone: Evaluation note* Diagnosis Onset Date Resolution Status ASHD (arteriosclerotic heart disease) acute Chronic diastolic heart failure acute Chronic venous insufficiency acute Elevated cholesterol acute Essential hypertension acute OMAR (generalized anxiety disorder) acute Gastroesophageal reflux dise ase with esophagitis without hemorrhage acute 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 Medicare annual wellness visit, subsequent noneactive Eustachian tube dysfunction acute Right otitis media acute ASHD (arteriosclerotic heart disease) acute Chronic diastolic heart failure acute Chronic venous insufficiency acute Essential hypertension acute OMAR (generalized anxiety disorder) acute Subclinical hypothyroidism a [facility] Work Phone: Evaluation note* Diagnosis ASHD (arteriosclerotic heart disease) Coronary atherosclerosis of unspecified type of vessel, stillaguamish or graft documented in this encounter [facility] Work Phone: Evaluation note* Diagnosis Onset Date Resolution Status Anemia acute ASHD (arteriosclerotic heart disease) acute Chronic diastolic heart failure acute Chronic venous insufficiency acute Essential hypertension acute OMAR (generalized anxiety disorder) acute Subclinical hypothyroidism a [facility] Work Phone: Evaluation note* Diagnosis 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 Lung nodules Other nonspecific abnormal finding of lung field [facility]* Diagnosis Onset Date Resolution Status Admit Date Anemia acute September 11, 2024 10:16am ASHD (arteriosclerotic heart disease) acute September 11 10:16am Chronic bronchitis acute Novemb er 2023 10:16am Chronic heart failure with preserved ejection fraction (HFpEF) acute September 11 10:16am Chronic venous insufficiency acute September 11, 2024 10:16am Essential hypertension acute No vember 2023 10:16am OMAR (generalized anxiety disorder) a cute September 11, 2024 10:16am Hypercholesterolemia acute Nove mber 2023 10:16am Subclinical hypothyroidism acute September 11, 2024 10:16am [facility] Work Phone: History general Narrative - Reported* [...] catarac sugery 2008 Surgical History Colonoscopy 2012 Hospitalization History see surgical history [facility] Other History general Narrative - Reported* Type [...] diagonal br Hospitalization History see surgical history [facility] Other Hospital Discharge instructions Additional Instructions Please [...] to control your blood pressure in the hospital.[facility] Work Phone: Reason for referral (narrative)* Consultation (Routine) - Authorized Specialty Diagnoses / Procedures Referred By Isabelle quintanilla Referred To Contact Cardiology Diagnoses ASHD (arteriosclerotic heart disease) Procedures Follow Up In Cardiology Holden Rosado APRN-CNP [address] [facility], [place] [id number] Referral ID Status Reason Start Date Expiration Date V isits Requested Visits Authorized [id number] Authorized 03/05/2024 03/05/2025 1 1 * Cardiac Stress Testing (Routine) - Pending Review Specialty Diagnoses / Procedures Referred By Isabelle quintanilla Referred To Contact Radiology Diagnoses ASHD (arteriosclerotic heart disease) Procedures Nuclear Stress Test CHG MYOCARDIAL SPECT MULTIPLE STUDIES Holden Rosado APRN-CNP [facility] [facility] [address], [address] [address] Referral ID Status Reason Start Date Expiration Date V isits Requested Visits Authorized [id number] Pending Review 03/05/2024 03/05/[address] 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 Advance Directive(s) 08/01/2021 12:55 PM A dvance Directives Advance Directive Response Recorded Date/ Time Advance Directives No March 07 1:03pm Advance Directive Response Recorded Date/ Time Advance Directives No March 07 12:03pm Reason for Referral Specialty Diagnoses / Procedures Referred By Contac t Referred To Contact CT IMAGING Diagnoses Lung nodules Procedures CT CHEST W IVCON DIAGNOSTIC COMPUTED TOMOGRAPHY THORAX W/CONTRAST Luis Mckenzie MD [address] [place] [address] [place] [address] Ct Imaging Referral ID Status Reason Start Date Expiration Date Visits Requested Visits Authorized [id number] Authorized Auto-Generat ed Referral 05/29/2022 06/28/2023 1 1 Specialty Diagnoses / Procedures Referred By Contac t Referred To Contact CT IMAGING Diagnoses Disorder of adrenal gland (HCC) Procedures CT ABD/PEL W IVCON CT ABD & PELVIS W/CONTRAST Luis Mckenzie MD [address] [place] [address] [place] [address] Ct Imaging Referral ID Status Reason Start Date Expiration Date Visits Requested Visits Authorized [id number] Authorized Auto-Generat ed Referral 05/29/2022 06/28/2023 1 1 Specialty Diagnoses / Procedures Referred By Contac t Referred To Contact Radiology Diagnoses ASHD (arteriosclerotic heart disease) Procedures Nuclear Stress Test CHG MYOCARDIAL SPECT MULTIPLE STUDIES Holden Rosado, MANAGER GAME-FILLER OPERATOR [facility] [facility] [address], [address] [address] Referral ID Status Reason Start Date Expiration Date V isits Requested Visits Authorized [id number] Pending Review 03/05/2024 03/05/2025 5 5 Specialty Diagnoses / Procedures Referred By Contac t Referred To Contact CT IMAGING Diagnoses Lung nodules Procedures CT CHEST W IVCON DIAGNOSTIC COMPUTED TOMOGRAPHY THORAX W/CONTRAST Luis Mckenzie MD [address] [place] [address] [place] [address] [place] [address] Referral ID Status Reason Start Date Expiration Date V isits Requested Visits Authorized [id number] Closed Auto-Generate d Referral 05/29/2022 06/28/2023 1 1 Specialty Diagnoses / Procedures Referred By Contac t Referred To Contact CT IMAGING Diagnoses Disorder of adrenal gland (HCC) Procedures CT ABD/PEL W IVCON CT ABD & PELVIS W/CONTRAST Luis Mckenzie MD [address] [place] [address] [place] [address] [place] [address] Referral ID Status Reason Start Date Expiration Date V isits Requested Visits Authorized [id number] Closed Auto-Generate d Referral 05/29/2022 06/28/2023 1 1 Family History [...] neoplasm of lung Unknown Exposure to Agent [place] Unknown brother Malignant neoplasm of colon Unknown [...] neoplasm of lung Unknown Exposure to Agent [place] Unknown brother Malignant neoplasm of colon Unknown brother Malignant neoplasm of urinary bladder Unk nown brother Malignant neoplasm Unknown father Unknown Not Specified Unknown Relationship Condition Age at Onset Recorded Date/T jerzy brother Type 2 diabetes mellitus Unknown Heart disease Unknown father Myocardial infarction Unknown mother History of implantab le cardioverter-defibrillator (ICD) insertion Unknown brother Malignant neoplasm of kidney Unknown sister Multiple sclerosis Unknown Leukemia Unknown brother Malignant neoplasm of lung Unknown Exposure to Agent [place] Unknown brother Malignant neoplasm of colon Unknown brother Malignant neoplasm of urinary bladder Unk nown brother Malignant neoplasm Unknown father Unknown mother Unknown Summary Purpose Chief Complaint and Reason [...] hemorrhage MGUS (monoclonal gammopathy of unknown significance) Chief Complaint Amb Documentation Medicare Wellness ear ache Reason for Visit ASHD (arteriosclerot ic heart disease) Chronic diastolic heart failure Chronic venous insufficiency Elevated cholesterol Essential hypertension OMAR (generalized anxiety disorder) Gastroesophageal reflux disease with esophagitis without hemorrhage MGUS (monoclonal gammopathy of unknown significance) Medicare annual wellness visit, subsequent Eustachian tube dysfunction Right otitis media Chief Complaint Amb Documentation Medicare Wellness ear ache Amb Documentation [facility] FOLLOW UP i10 Reason for Visit ASHD (arteriosclerot ic heart disease) Chronic diastolic heart failure Chronic venous insufficiency Elevated cholesterol Essential hypertension OMAR (generalized anxiety disorder) Gastroesophageal reflux disease with esophagitis without hemorrhage MGUS (monoclonal gammopathy of unknown significance) Medicare annual wellness visit, subsequent Eustachian tube dysfunction Right otitis media ASHD (arteriosclerotic heart disease) Chronic diastolic heart failure Chronic venous insufficiency Essential hypertension OMAR (generalized anxiety disorder) Subclinical hypothyroidism Chief Complaint i10 4 month follow up Reason for Visit Anemia ASHD (arteriosclerotic heart disease) Chronic diastolic heart failure Chronic venous insufficiency Essential hypertension OMAR (generalized anxiety disorder) Subclinical hypothyroidism Chief Complaint 4 month follow up flu shot Reason for Visit Anemia ASHD (arteriosclerotic heart disease) Chronic diastolic heart failure Chronic venous insufficiency Essential hypertension OMAR (generalized anxiety disorder) Subclinical hypothyroidism Chief Complaint Admit Date flu shot July 16, 2024 9:58am CC Adult Risk Stratification August 10:36am 3 month f/u-HIGH RISK September 11 10:16am Reason for Visit Admit Date Anemia September 11, 2024 10:16am ASHD (arteriosclerotic heart disease) No vember 2023 10:16am Chronic bronchitis September 11, 2024 10:16am 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) September 11, 2024 10:16am Chronic venous insufficiency September 112023 10:16am Essential hypertension September 11 10:16am OMAR (generalized anxiety disorder) Novem 2023 10:16am Hypercholesterolemia September 11, 2024 10:16am Subclinical hypothyroidism August 10:16am Additional Source Comments Source Comments (unrecognize d section and content) In the event this informatio n is protected by the Federal Confidentiality of Alcohol and Drug Abuse Patient Records regulations: The Federal rules restrict any use of the information to criminally investigate or prosecute any alcohol or drug abuse patient.[facility] the event this information is protected by the Federal Confidentiality of Alcohol and Drug Abuse Patient Records regulations: The Federal rules restrict any use of the information to criminally investigate or prosecute any alcohol or drug abuse patient.[facility] the event this information is protected by the Federal Confidentiality of Alcohol and Drug Abuse Patient Records regulations: The Federal rules restrict any use of the information to criminally investigate or prosecute any alcohol or drug abuse patient.[facility] the event this information is protected by the Federal Confidentiality of Alcohol and Drug Abuse Patient Records regulations: The Federal rules restrict any use of the information to criminally investigate or prosecute any alcohol or drug abuse patient.[facility] the event this information is protected by the Federal Confidentiality of Alcohol and Drug Abuse Patient Records regulations: The Federal rules restrict any use of the information to criminally investigate or prosecute any alcohol or drug abuse patient.[facility] the event this information is protected by the Federal Confidentiality of Alcohol and Drug Abuse Patient Records regulations: The Federal rules restrict any use of the information to criminally investigate or prosecute any alcohol or drug abuse patient.[facility] the event this information is protected by the Federal Confidentiality of Alcohol and Drug Abuse Patient Records regulations: The Federal rules restrict any use of the information to criminally investigate or prosecute any alcohol or drug abuse patient.[facility] Reason for Visit (unrecogniz ed section and content) Reason Comments Lab Orders Reason Comments abnormal spep Reason Comments Results Reason Comments Abnormal SPEP Reason Comments Follow-up bradycardia Specialty Diagnoses / Procedures Referred By Isabelle quintanilla Referred To Contact Radiology Diagnoses ASHD (arteriosclerotic heart disease) Procedures Nuclear Stress Test CHG MYOCARDIAL SPECT MULTIPLE STUDIES Holden Rosado, MANAGER GAME-FILLER OPERATOR [address] [facility] [address] [place] [address] Referral ID Status Reason Start Date Expiration Date V isits Requested Visits Authorized [id number] Pending Review 03/05/2024 03/05/2025 [address] Specialty Diagnoses / Procedures Referred By Isabelle quintanilla Referred To Contact CT IMAGING Diagnoses Lung nodules Procedures CT CHEST W IVCON DIAGNOSTIC COMPUTED TOMOGRAPHY THORAX W/CONTRAST Luis Mckenzie MD [address] [place] [address] [place] [address] [place] [address] Referral ID Status Reason Start Date Expiration Date V isits Requested Visits Authorized [id number] Closed Auto-Generate d Referral 05/29/2022 06/28/2023 1 1 Care Teams (unrecognized sec tion and content) Team Status: Active Member Role Status Dates Nathan Hathaway , DO Primary Care Provider Active Team Status: Inactive Member Role Status Dates Nathan Hathaway DO Primary Care Provide r, Attending Provider Active Start: July 16, 2024 End: July 16, 2024 Team Status: Active Member Role Status Dates Nathan Hathaway DO Primary Care Provide r, Attending Provider Active Start: September 04, 2024 Team Status: Inactive Member Role Status Dates Nathan Hathaway DO Primary Care Provide r, Attending Provider Active Start: September 11, 2024 End: September 11, 2024 Team Status: Active Member Role Status Dates Nathan Hathaway DO Primary Care Provider Active Team Status: Active Member Role Status Dates Nathan Hathaway DO Primary Care Provider Active Start: April 30, 2024 Holden Rosado APRN Attending Provider Active S tart: April 30, 2024 Team Status: Active Member Role Status Dates Nathan Hathaway DO Primary Care Provide r, Attending Provider Active Start: May 20, 2024 Team Status: Inactive Member Role Status Dates Nathan Hathaway DO Primary Care Provide r, Attending Provider Active Start: June 03, 2024 End: June 03, 2024 Team Status: Inactive Member Role Status Dates Nathan Hathaway DO Primary Care Provide r, Attending Provider Active Start: July 16, 2024 End: July 16, 2024 Team Status: Inactive Member Role Status Hortencia Hathaway DO Primary Care Provider Active Start: March 05, 2024 End: March 05, 2024 Holden Rosado APRN Attending Provider Active S tart: March 05, 2024 End: March 05, 2024 Team Status: Active Member Role Status Dates Nathan Hathaway DO Primary Care Provider Active Start: December 18, 2023 URIEL Sunshine Attending Provider Active Start : December 18, 2023 Team Status: Inactive Member Role Status Hortencia Hathaway DO Primary Care Provide r, Attending Provider Active Start: February 01, 2024 End: February 01, 2024 911 Emergency Dispatcher Relationship Specialty Start Date End Date aNthan Hathaway DO PCP - General Internal Medicine 01/31/12 911 Emergency Dispatcher Relationship Specialty Start Date End Date Nathan Hathaway DO PCP - General Internal Medicine 01/31/12 911 Emergency Dispatcher Relationship Specialty Start Date End Date Nathan Hathaway DO PCP - General Internal Medicine 01/31/12 911 Emergency Dispatcher Relationship Specialty Start Date End Date Nathan Hathaway DO PCP - General Internal Medicine 01/31/12 Team Status: Inactive Member Role Status Dates Jonna Perry DO Attending Provider Active Nathan Ball , DO Primary Care Provider Active Team Status: Inactive Member Role Status Dates Nathan Hathaway DO Primary Care Provider Active Parris Ch DO Emergency Provider Active Lj Ryan , DO Admit Provider, Attending Provider Active 911 Emergency Dispatcher Relationship Specialty Start Date End Date Nathan Hathaway DO PCP - General Internal Medicine 01/31/12 911 Emergency Dispatcher Relationship Specialty Start Date End Date Nathan Htahaway DO PCP - General Internal Medicine 01/31/12 Team Status: Active Member Role Status Dates Nathan Hathaway DO Primary Care Provide r, Attending Provider Active Start: February 02, 2024 Team Status: Inactive Member Role Status Dates Nathan Hathaway DO Primary Care Provider Active Start: February 13, 2024 End: February 13, 2024 Deja Pope APRN ANALYTICS ARCHITECT-C Attending Provider Act babar Start: February 13, 2024 End: February 13, 2024 911 Emergency Dispatcher Relationship Specialty Start Date End Date Nathan Hathaway DO PCP - General Internal Medicine 10/03/23 Team Status: Active Member Role Status Dates Nathan Hathaway DO Primary Care Provide r, Attending Provider Active Start: February 18, 2024 Team Status: Active Member Role Status Dates Nathan Hathaway DO Primary Care Provide r, Attending Provider Active Start: February 19, 2024 Team Status: Active Member Role Status Dates Nathan Hathaway DO Primary Care Provide r, Attending Provider Active Start: February 20, 2024 Team Status: Active Member Role Status Dates Nathan Hathaway DO Primary Care Provider Active Start: February 21, 2024 Emily Call LPN Attending Provider Active S tart: February 21, 2024 Team Status: Inactive Member Role Status Dates Nathan Hathaway DO Primary Care Provide r, Attending Provider Active Start: February 27, 2024 End: February 27, 2024 911 Emergency Dispatcher Relationship Specialty Start Date End Date Nathan Hathaway DO PCP - General Internal Medicine 10/03/23 911 Emergency Dispatcher Relationship Specialty Start Date End Date Nathan Hathaway DO PCP - General Internal Medicine 10/03/23 911 Emergency Dispatcher Relationship Specialty Start Date End Date Nathan Hathaway DO PCP - General Internal Medicine 10/03/23 911 Emergency Dispatcher Relationship Specialty Start Date End Date Nathan Hathaway DO PCP - General Internal Medicine 10/03/23 911 Emergency Dispatcher Relationship Specialty Start Date End Date Nathan Hathaway DO PCP - General Internal Medicine 01/31/12 Team Status: Active Member Role Status Dates Nathan Hathaway DO Primary Care Provide r, Attending Provider Active Start: September 04, 2024 Team Status: Inactive Member Role Status Dates Nathan Hathaway DO Primary Care Provide r, Attending Provider Active Start: September 11, 2024 End: September 11, 2024 INFORMATION SOURCE (unrecogn ized section and content) DATE CREATED AUTHOR 03/08/[address] [facility] DATE CREATED AUTHOR AUTHOR'S ORGANIZ ATION 03/09/2023 [employer] DATE CREATED AUTHOR AUTHOR'S ORGANIZ ATION 03/11/2023 [facility] DATE CREATED AUTHOR AUTHOR'S ORGANIZ ATION 11/08/2023 [facility] DATE CREATED AUTHOR AUTHOR'S ORGANIZ ATION 03/07/2024 [facility] DATE CREATED AUTHOR AUTHOR'S ORGANIZ ATION 03/17/2024 [facility] DATE CREATED AUTHOR AUTHOR'S ORGANIZ ATION 04/24/2024 [facility] DATE CREATED AUTHOR AUTHOR'S ORGANIZ ATION 04/29/2024 [facility] EPIC Goals (unrecognized section and content) Goals may [...] BE BASED ON THE PRIMARY CLINICAL RECORDS. [facility] [employer] [facility]. provides no warranty or guarantee of the accuracy or completeness of information in this document.
== END 2024-09-23 07:37 | disposition home or self-care (01) ==
LOC: US 07:36
PROVIDERS: PCP Internal Medicine; Visit Provider Internal Medicine
DX: E04.2 Nontoxic multinodular goiter (principal); Z80.8 Family history of malignant neoplasm of other organs or systems
CPT/HCPCS: 76536

== ENCOUNTER 2024-12-18 12:45 | Outpatient (OUT) | payer MEDICARE, SELFPAY ==
[2024-12-18 13:41] LABS: Anion Gap 11.7; BUN Creatinine Ratio 17.8; Calcium 8.9 mg/dL (8.5-10.1); Carbon Dioxide 30.4 mmol/L (21.0-32.0); Chloride 105 mmol/L (98-107); Estimated GFR (African America 38 (>=60 mL/min/1.73m^2); Estimated GFR (Non-African Ame 32 (>=60 mL/min/1.73m^2); Glucose 119 mg/dL (74-106); Potassium 4.1 mmol/L (3.5-5.1); Sodium 143 mmol/L (136-145)
== END 2024-12-18 12:46 | disposition home or self-care (01) ==
LOC: LAB 12:46
PROVIDERS: PCP Internal Medicine; Visit Provider Internal Medicine
DX: E03.8 Other specified hypothyroidism (principal); N18.9 Chronic kidney disease, unspecified
CPT/HCPCS: 36415; 80048; 84439; 84443

== ENCOUNTER 2025-01-15 09:17 | Outpatient (OUT) | payer MEDICARE, SELFPAY ==
--- NOTE | 2025-01-15 09:19 | MM_ITS ---
Patient Name: LASHAUN JOAQUIN MR#: [id number] : 1940 Exam Date: 01/15/2025 Ordering Doctor: DR Nathan Bateman D.O. RADIOLOGY REPORT PROCEDURE: MM TOMOSYNTHESIS SCREENING BI COMPARISON: MM TOMOSYNTHESIS SCREENING BI, 01/15/2024. MG MAMM SCREEN 3D [place]TT CAD, 01/08/2023. MG MAMM SCREEN 3D [place]TT CAD, 01/04/2022. MG MAMM [place]TT SCRN W CAD DIG, 03/03/2014. INDICATIONS: Screening Calculator Name NCI Breast Cancer Risk Assessment Tool 5 Year Breast Cancer Risk 1.10% Lifetime Breast Cancer Risk 1.50% Personal Breast Cancer No Personal Ovarian Cancer No Treatments None Family Cancers Father with bladder cancer at age 67; Mother with lymphoma cancer at age 72; Sister with lymphoma cancer at age 60; Brother with colon cancer at age 77; Brother with bladder cancer at age 70; Brother with colon cancer at age 77; Brother with bladder cancer at age 67; Brother with lung cancer at age 60. LOCATION: [facility] [place] BREAST COMPOSITION: The breasts are heterogeneously dense,which may obscure small masses. FINDINGS: DIAGNOSTIC CATEGORY 1--NEGATIVE. RIGHT BREAST: No significant suspicious finding. LEFT BREAST: No significant suspicious finding. RECOMMENDATIONS: ROUTINE MAMMOGRAM AND CLINICAL EVALUATION IN 12 MONTHS. PLEASE NOTE: A NORMAL MAMMOGRAM DOES NOT EXCLUDE THE POSSIBILITY OF BREAST CANCER. A CLINICALLY SUSPICIOUS PALPABLE LUMP SHOULD BE BIOPSIED. Dictated by: Epifanio Lyon DO on 01/15/2025 at 16:23 Approved by: Epifanio Lyon DO on 01/15/2025 at 16:28
--- OUTSIDE RECORDS SUMMARY | 2025-01-15 09:32 | XMS_ITS | CCD ---
Author Organization [facility] Care Team Providers Care Blood Bank Manager Name Role Phone Nathan Hathaway DO Primary Care Provider Nathan Hathaway Unavailable Unavailable Unavailable ISABELA, DR TRAN Primary Care Unavailable LIZZETTE, DR BRISSA Doherty Consulting Unavailabl e TYLER, DR ALLI Kat Admitting Unavailable JOSE ANTONIOEREBeth, DR ALLI Kat Attending Unavailable NADERER, DR [...] Care Unavailable DO Jonna Perry Attending Provider [phone] DO Nathan Hathaway Primary Care Provider [phone] Nathan Hathaway Unavailable [place], Dr. Edinson Hinojosa Attending Aura Hathaway, Dr. Nathan Maxwell Primary Care Ericka Perry, Dr. Edinson Hinojosa Attending Aura Perry, Dr. Edinson Hinojosa Referring Aura Hathaway, Dr. Nathan Maxwell Primary Care DO Fernando Calderón Emergency Provider DO Lj Ryan Admit Provider [phone] DO Lj Ryan Attending Provider Nathan Hathaway DO Primary Care Provider NATHAN HATHAWAY Primary Care Unavailable ISABELA, NATHAN Whitlock Primary Care Unavailable LUIS MCKENZIE Attending Unavailable LUIS MCKENZIE Referring Unavailable LUIS MCKENZIE Referring Unavailable BALL, NATHAN Chinyere Primary Care Unavailable ISABELA, NATHAN E Primary Care Unavailable PAOLO CASILLAS Attending Unavailable LUIS MCKENZIE Referring Unavailable ISABELA, NATHAN Whitlock Primary Care Unavailable ISABELA, NATHAN Whitlock Primary Care Unavailable ISABELA, NATHAN Whitlock Primary Care Unavailable LUIS MCKENZIE Attending Unavailable Nathan Hathaway DO Primary Care Provider DO Nathan Hathaway Primary Care Provider THONY Rosado Attending Provider [phone] HOLDEN ROSADO Referring Unavailable NATHAN HATHAWAY Primary Care Unavailable HOLDEN ROSADO Referring Unavailable NATHAN HATHAWAY Primary Care Unavailable Nathan Hathaway DO Primary Care Provider Nathan Hathaway MD Unavailable Nathan Hathaway DO Primary Care Provider Nathan Hathaway DO Attending Provider Nathan Hathaway Attending Unavailable Nathan Hathaway Admitting Unavailable Nathan Hathaway Primary Care Unavailable Holden Rosado Admitting Unavailable Holden Rosado Attending Unavailable Nathan Hathaway Primary Care Unavailable REYNA ESPARZA Attending Unavailable NATHAN HATHAWAY Referring Unavailable FERCHO TSE Attending Unavailable Nathan Hathaway DO Primary Care Provider HOLDEN ROSADO Attending Unavailable NATHAN HATHAWAY Primary Care Unavailable HOLDEN ROSADO Attending Unavailable EDINSON PERRY Referring Unavailable NATHAN HATHAWAY Primary Care Unavailable EDINSON PERRY Attending Unavailable HOLDEN ROSADO Referring Unavailable NATHAN HATHAWAY Primary Care Unavailable HOLDEN ROSADO Attending Unavailable EDINSON PERRY Referring Unavailable NATHAN HATHAWAY Primary Care Unavailable Allergies Allergy Classification Reported Allergen(s) Allergy Type Date of Onset Reaction(s) Facility (20 sources) amLODIPine; Translations: [AMLODIPINE] Drug Allergy 07-27-20 21 Unknown [facility] (8 sources) Codeine / guaiFENesin; Translations: [CODEINE-GUAIFENESI N] Drug Allergy 07-27-20 Unknown [facility] (8 sources) Doxycycline; Translations: [DOXYCYCLINE HYCLATE] Drug Allergy 07-27-20 Unknown [facility] (20 sources) DULoxetine; Translations: [DULOXETINE] Drug Allergy 07-27-20 Unknown [facility] (17 sources) levoFLOXacin; Translations: [LEVOFLOXACIN] Drug Allergy 07-27-20 Unknown [facility] (17 sources) Ondansetron; Translations: [ONDANSETRON] Drug Allergy 07-27-20 Unknown [facility] Comment on above: Onset Date: 10/29/19 (19 sources) Penicillins; Translations: [PENICILLINS] Propensity to adverse reactions to drug 07-27-20 Unknown [facility] (20 sources) Sulfamethoxazole / Trimethoprim; Translations: [Bactrim] Drug Allergy 07-27-20 Unknown, Hives [facility] (8 sources) Tetracycline (class of antibiotic); Translations: [TETRACYCLINES] Propensity to adverse reactions to drug 07-27-20 Unknown [facility] (8 sources) Iodine And Iodide Containing Products; Translations: [IODINE AND IODIDE CONTAINING PRODUCTS] Drug Allergy 01-20-20 Unknown [facility] (17 sources) Tetanus And Diphtheria Toxoids; Translations: [TETANUS AND DIPHTHERIA TOXOIDS] Propensity to adverse reactions to drug 07-27-20 Unknown [facility] (20 sources) Amoxicillin Drug Allergy 02-01-20 24 Unknown, Unknown Reaction [facility] (20 sources) Codeine / guaiFENesin Drug Allergy Unknown [employer] Other (20 sources) Doxycycline Drug Allergy 12-09-19 19 Unknown, Unknown Reaction [facility] (20 sources) levoFLOXacin Drug Allergy Unknown [employer] Other (20 sources) Ondansetron; Translations: [Zofran] Drug Allergy 11-05-19 20 Unknown [facility] (20 sources) Tetanus-Diphtheria Toxoids Td Drug allergy Unknown [facility] [employer] Other (20 sources) Allopurinol Drug Allergy 11-05-19 24 Unknown [facility] (1 source) amLODIPine Drug Allergy 11-05-19 20 [facility] (1 source) Doxycycline Drug Allergy [facility] (1 source) DULoxetine Drug Allergy 11-05-19 20 [facility] (1 source) Iodine (And Iodine Containting Drugs) Drug allergy (disorder) 01-20-20 21 [facility] (1 source) Sulfamethoxazole / Trimethoprim Drug Allergy 11-05-19 20 [facility] (4 sources) Sulfonamides (Antibiotic) Allergy to substance 03-08-20 23 Rash [facility] (10 sources) Sulfamethoxazole Drug Allergy 03-09-20 23 Unknown Reaction [facility] (3 sources) Trimethoprim Drug Allergy 03-09-20 23 Unknown Reaction [facility] (20 sources) Pseudoephedrine Drug Allergy 10-29-19 Unknown [employer] [facility] Other (20 sources) Tetracycline Drug Allergy Unknown [employer] Other (20 sources) Cheratussin AC *COUGH/COLD/ALLERGY * Propensity to adverse reactions 10-29-19 Unknown [employer] [facility] Other (20 sources) Zofran *ANTIEMETICS* Propensity to adverse reactions 10-29-19 Unknown [employer] [facility] Other (5 sources) amLODIPine Drug Allergy Unknown [employer] Other (20 sources) Azithromycin; Translations: [AZITHROMYCIN] Drug Allergy 10-17-20 23 rash, Swelling [facility] (13 sources) Codeine Drug Allergy 02-01-20 24 Unknown Reaction [facility] (9 sources) guaiFENesin Drug Allergy 02-01-20 24 Unknown Reaction [facility] (9 sources) 12 Hour Decongestant Allergy to substance 02-01-20 Unknown Reaction [facility] Comment on above: Onset Date: 10/29/19 20 (9 sources) Cheratussin AC *COUGH/COLD/ALL Allergy to substance 02-01-20 Unknown Reaction [facility] Comment on above: Free Text Allergy: C heratussin AC *COUGH/COLD/ALLERGY*; Onset Date: 10/29/2019 (4 sources) Penicillins Drug Intolerance 07-27-20 21 [facility] Medications Current Medications Medication Drug Class(es) Dates Sig (Normalized) Sig (Original) AeroChamber Mini Chamber - (5 sources) Start: 04-20-2023 AeroChamber Mini Chamber - Use with MDI every 6 hours as needed inhaled every 6 hours as needed for 30 days Mar, Active [id number] actuat albuterol 0.09 mg/actuat metered dose inhaler (20 sources) beta2-Adrenergic Agonist Start: 01-31-2024 albuterol HFA 90 mcg/act inhaler Every 6 hours 01/31/2024 Active Start: 01-31-2024 End: 11-26-2024 take 1 puff(s) by inhalation every six hours as needed for wheezing Albuterol Sulfate 90 mcg/actuation HFA aerosol inhaler Active 2 PUFF INHALATION Every 6 hours as needed for shortness of breath or wheezing 8.5 November 26, 2024 9:19am Start: 04-20-2023 take 2 puff(s) by in [...] mg oral tablet (20 sources) Benzodiazepine Start: 09-11-2024 take 1 tablet by mouth twice daily as needed for anxiety Alprazolam 0.25 mg tablet Active 0.25 MG PO Twice daily as needed for anxiety 180 90 September 11, 2024 2:19pm Start: 01-31-2024 End: 09-11-2024 take 1 tablet by mouth every eight hours as needed for anxiety Alprazolam 0.25 mg tablet Discontinued 0.25 MG PO .q8hrs as needed for Anxiety January 31, 2024 9:33am September 11, 2024 2:20pm Start: 03-22-2023 take 1 tablet by tina [...] ALPRAZolam (Briana vam) 0.25 mg disintegrating tablet Dissolve 1 tablet (0.25 mg) in the mouth as needed at bedtime for anxiety. Active take 1 tablet by tina th every twelve hours ALPRAZolam 0.25 MG 1 tablet Orally Twice a day Active Comment on above: Take 0.25 mg by mout h three times daily as needed. azithromycin 250 mg oral tablet (10 sources) Macrolide Antimicrobial Start: 09-11-2023 Azithromycin 250 MG as directed Orally daily for 5 days Aug, Active Start: 04-26-2023 Azithromycin 2 50 MG as directed Orally daily for 5 days Mar, Active 60 actuat budesonide 0.16 mg/actuat / formoterol fumarate 0.0045 mg/actuat metered dose inhaler (3 sources) Corticosteroid, beta2-Adrenergic Agonist Start: 12-31-2024 take 2 puff(s) by inhalation every twelve hours Symbicort 160-4.5 mcg/actuation inhaler Inhale 2 puffs every 12 hours. 12/31/2024 Active Start: 12-29-2024 End: 12-29-2024 take 1 puff(s) by inhalation every twelve hours Budesonide-Formoterol 160-4.5 mcg/actuation HFA aerosol inhaler Active 2 PUFF INHALATION Every 12 hours 30.6 90 December 29, 2024 12:00am 120 actuat budesonide 0.16 mg/actuat / formoterol [...] Active Comment on above: Take by mouth. clopidogrel 75 mg oral tablet (20 sources) P2Y12 Platelet Inhibitor Start: 07-15-2024 End: 10-08-2024 clopidogrel (Plavix) 75 mg tablet Indications: S/P PTCA (percutaneous transluminal coronary angioplasty) TAKE 8 TABLETS BY MOUTH ON DAY ONE THEN TAKE 1 TABLET BY MOUTH DAILY 90 tablet 3 07/15/2024 10/08/2024 Discontinued (Reorder) Start: 05-09-2023 End: 10-08-2025 take 1 tablet by mouth once daily clopidogrel (Plavix) 75 mg tablet Indications: ASHD (arteriosclerotic heart disease) , S/P PTCA (percutaneous transluminal coronary angioplasty) Take 1 tablet (75 mg) by mouth once daily. 90 tablet 3 10/08/2024 10/08/2025 Active Start: 05-09-2023 clopidogrel (P LAVIX) 75 mg tablet TAKE 8 TABLETS BY MOUTH ON DAY ONE THEN TAKE 1 TABLET BY MOUTH DAILY 0 05/09/2023 Active Comment on above: TAKE 8 TABLETS BY [facility] ON DAY ONE THEN TAKE 1 TABLET [...] Propion-Salmeterol (20 sources) Corticosteroid, beta2-Adrenergic Agonist Start: take 1 puff(s) by inhalation every twelve hours Fluticasone Propion-Salmeterol (Advair Hfa) 115-21 mcg/actuation HFA aerosol inhaler Active 2 PUFF INHALATION Every 12 hours 10 27November 26, 2024 9:19am On Hold: None Start: 05-17-2023 End: 11-26-2024 take 1 puff(s) by inhalation twice daily Fluticasone Propion-Salmeterol (Advair Hfa) 115-21 mcg/actuation HFA aerosol inhaler Discontinued 2 PUFF INHALATION Twice daily May 16, 2023 11:00pm November 26, 2024 9:19am Start: 05-17-2023 take 1 puff(s) by in [...] puffs Inhalation Twice a day Apr, Active take 2 puff(s) by in halation in the morning fluticasone-salmeterol (Advair) 45-21 MCG/ACT inhaler Inhale 2 puffs in the morning and 2 puffs before bedtime. Rinse mouth with water after use to reduce aftertaste and incidence of candidiasis. Do not swallow.. Active Fluticasone-Salmeterol 115-21 MCG/ACT (16 sources) Start: 05-16-2023 take 2 puff(s) by inhalation twice daily Fluticasone-Salmeterol 115-21 MCG/ACT 2 puffs Inhalation Twice a day Apr, Active Start: 05-16-2023 take 2 puff(s) by in halation twice daily Fluticasone-Salmeterol 115-21 MCG/ACT 2 puffs Inhalation Twice a day for 30 days Apr, Active furosemide 20 mg oral tablet (20 sources) Loop Diuretic Start: 12-19-2024 End: 12-23-2024 take 1 tablet by mouth twice daily Furosemide 20 mg tablet Active 20 MG PO Twice daily 180 December 23, 2024 1:16pm Start: 10-06-2024 End: 12-19-2024 Furosemide 20 mg tablet Disc ontinued 0 .ROUTE .COMPLEX 180 October 06, 2024 12:59pm December 19, 2024 4:28pm TAKE 1 TABLET BY MOUTH 1 TO 2 TIMES DAILY NEEDED Start: 05-18-2023 End: 10-06-2024 take 1 tablet by mouth three times weekly Furosemide 20 mg tablet Discontinued 20 MG PO every other day May 18, 2023 10:38am October 06, 2024 1:00pm on even days 3 times a week. Goal weight is 195lbs, if you notice your weight trending up please take an extra dose as instructed by your PCP Start: 03-21-2023 Furosemide 20 MG Oral Tablet one tablet M, W, F Quantity: 36 Refills: 3 Ordered: 21-Mar-2023 Edinson Perry DO Start : 21-Mar-2023 Active new dose Start: 03-08-2023 End: 10-08-2025 take 1 tablet by mouth once daily furosemide (Lasix) 20 mg tablet Indications: Essential hypertension Take 1 tablet (20 mg) by mouth once daily. 90 tablet 3 10/08/2024 10/08/2025 Active Start: 03-08-2023 End: 05-18-2023 Furosemide 20 mg tablet Disc ontinued 20 MG PO every other day March 07, 2023 11:00pm May 18, 2023 10:39am on even days 3 times a week take 1 tablet by tina twice daily [...] 8:28am may take tid if needed take 1 capsule by [facility] twice daily gabapentin (Neurontin) 100 mg capsule Take 1 capsule (100 mg) by mouth 2 times a day. Active take 1 capsule by [facility] every [...] in the [place] contrast administration guidelines link. MULTI-VITAMIN ORAL (7 sources) MULTI-VITAMIN OR AL Take by mouth. Active MULTI-VITAMIN OR AL Take by mouth. 0 Active Comment on above: Take by mouth. NIFEdipine 30 mg osmotic 24 hr extended release oral tablet (20 sources) Dihydropyridine Calcium Channel Humaira Start: End: take 1 tablet by mouth once daily NIFEdipine XL 30 mg 24 hr tablet Take 1 tablet (30 mg) by mouth once daily. 02/20/2024 Active Start: 02-20-2024 take 1 tablet by tina th every twenty-four hours in the morning NIFEdipine XL (Procardia XL) 30 MG 24 hr tablet Take 30 mg by mouth in the morning. 02/20/2024 Active nitrofurantoin, macrocrystals 25 mg / nitrofurantoin, monohydrate 75 mg oral capsule (11 sources) Nitrofuran Antibacterial Start: 07-18-2023 take 1 capsule by mouth every twelve hours Nitrofurantoin Monohyd Macro 100 MG 1 capsule with food Orally every 12 hrs for 5 days Jun, Active pantoprazole 40 mg delayed release oral tablet (20 sources) Proton Pump Inhibitor Start: 11-18-2024 take 1 tablet by mouth once daily at breakfast Pantoprazole 40 mg tablet,delayed release (DR/EC) Active 0 .ROUTE .COMPLEX November 18, 2024 7:28am TAKE 1 TABLET BY MOUTH DAILY ON AN EMPTY STOMACH FOLLOWED IN 1/2 HOUR BY BREAKFAST Start: 07-05-2021 End: 11-18-2024 take 1 tablet by mouth once daily in the morning Pantoprazole 40 mg tablet,delayed release (DR/EC) Discontinued 40 MG PO Every morning March 07, 2023 11:00pm November 18, 2024 7:28am Pantoprazole Sod ium 40 MG Oral Packet Take 1 tablet by mouth on a empty stomach Quantity: 0 Refills: 0 Ordered: 07-Mar-2023 DO Active Pantoprazole Sod ium Not-Taking rosuvastatin 40 mg oral capsule (20 sources) HMG-CoA Reductase Inhibitor Start: 11-18-2024 take 1 tablet by mouth once daily Rosuvastatin 40 mg tablet Active 0 .ROUTE .COMPLEX November 18, 2024 7:24am TAKE 1 TABLET BY MOUTH DAILY Start: 02-02-2024 End: 10-08-2025 take 1 tablet by mouth once daily rosuvastatin (Crestor) 40 mg tablet Indications: Mixed hyperlipidemia Take 1 tablet (40 mg) by mouth once daily. 90 tablet 3 10/08/2024 10/08/2025 Active triamcinolone acetonide 5 mg/ml topical cream (20 sources) Corticosteroid Start: 01-31-2024 triamcinolone (Kenalog) 0.5 % cream Twice daily 01/31/2024 Active Start: 01-31-2024 Triamcinolone Acetonide 0.5 % cream [...] a day for 14 days Mar, Active valsartan 80 mg oral tablet (5 sources) Angiotensin 2 Receptor Humaira Start: 10-08-2024 End: 10-08-2025 take 1 tablet by mouth once daily valsartan (Diovan) 80 mg tablet Indications: Essential hypertension Take 1 tablet (80 mg) by mouth once daily. 90 tablet 3 10/08/2024 10/08/2025 Active {20 (nirmatrelvir 150 MG Oral Tablet) [...] (Original) ascorbic acid 500 mg oral tablet (11 sources) Vitamin C Start: 03-08-2023 End: 05-17-2023 take 1 tablet by mouth once daily Ascorbic Acid (Vitamin C) (Vitamin C) 500 mg Tablet Discontinued 500 MG PO Daily March 07, 2023 11:00pm May 17, 2023 9:50am aspirin 81 mg delayed release oral tablet (20 sources) Platelet Aggregation Inhibitor, Nonsteroidal Anti-inflammatory Drug Start: 04-18-2023 take 1 tablet by mouth once daily Aspirin 81 81 MG 1 tablet Orally Once a day Mar, Active Start: 03-07-2023 End: 01-12-2025 take 1 tablet by mouth once daily in the morning Aspirin 81 mg tablet,delayed release (DR/EC) Discontinued 81 MG PO Every morning February 27, 2024 9:00am December 16, 2024 10:47am every Mon, Wed, and Fri aspirin 81 mg ca p Take by mouth. Active Comment on above: Take by mouth. benazepril (20 sources) Angiotensin Converting Enzyme Inhibitor Benazepril HCl Not-Taking benzonatate 100 mg oral capsule (20 sources) Non-narcotic Antitussive Start: 02-29-20 take 1 capsule by mouth every eight hours Benzonatate 100 MG 1 capsule as needed Orally Three times a day for As needed for cough or wheeze February, Not-Taking busPIRone (20 sources) busPIRone HCl Not-Taking calcium carbonate 1500 mg / cholecalciferol 0.01 mg oral tablet (11 sources) Vitamin D Start: 03-08-20 End: 05-17-20 take 1 tablet by mouth once daily Calcium Carbonate-Vitamin D3 (Calcium 600 + D(3)) 600 mg-10 mcg (400 unit) Tablet Discontinued 1 TAB PO Daily March 07, 2023 11:00pm May 17, 2023 9:50am carvedilol 3.125 mg oral tablet (20 sources) alpha-Adrenergic Humaira, beta-Adrenergic Humaira Start: 04-20-20 24 End: 11-25-19 25 carvedilol (Coreg) 3.125 MG tablet 04/20/2024 11/25/2024 Discontinued (Therapy completed) Start: 02-11-2024 End: 02-26-2024 take 1 tablet [...] Discontinued 12.5 MG PO Twice daily May 17, 2023 11:00pm January 31, 2024 9:34am must administer with a meal/food Start: 02-14-2023 End: 03-05-2024 take 1 tablet by mouth twice daily Carvedilol 3.125 mg tablet Discontinued 3.125 MG PO Twice daily January 30, 2024 11:00pm February 11, 2024 6:04am Comment on above: TAKE 1 TABLET BY TINA TH TWICE A DAY WITH FOOD/MEAL cefdinir 300 mg oral capsule (8 sources) Cephalosporin Antibacterial Start: 4 End: 4 take 1 capsule by mouth twice daily Cefdinir 300 mg capsule Discontinued 300 MG PO Twice daily 14 7 February 12, 2024 11:00pm February 26, 2024 9:49am irbesartan 150 mg oral tablet (20 sources) Angiotensin 2 Receptor Humaira Start: 3 End: 4 take 1 tablet by mouth once daily in the morning Irbesartan 150 mg tablet Discontinued 150 MG PO Every morning March 07, 2023 11:00pm February 27, 2024 9:37am take 1 tablet by mouth twice hair ly Irbesartan 150 MG 1 tablet Orally twice daily Active levothyroxine sodium 0.075 mg oral tablet (10 sources) l-Thyroxine Start: 02-19-2024 End: 11-25-2024 take 1 tablet by mouth once daily Levothyroxine 75 mcg tablet Discontinued 75 MCG PO Daily February 25, 2024 11:00pm September 15, 2024 9:40am losartan potassium 50 mg oral tablet (20 sources) Angiotensin 2 Receptor Humaira Start: 01-31-2024 End: 02-26-2024 take 1 tablet by mouth twice daily Losartan 50 mg tablet Discontinued 50 MG PO Twice daily January 30, 2024 11:00pm February 26, 2024 9:53am Start: 06-15-2023 take 1 tablet by tina th twice daily Losartan Potassium 50 MG 1 tablet Orally twice daily May, Active take 1 tablet by tina th once daily losartan (COZAAR) 100 mg tablet Take 100 mg by mouth once daily. Active take 1 tablet by tina th once daily Losartan Potassium 50 MG 1 [...] Daily March 08, 2023 12:00am Multivitamin Tablet (4 sources) Start: 03-08-2023 End: 05-17-2023 take 1 tablet by mouth once daily Multivitamin Tablet Discontinued 1 TAB PO Daily March 07, 2023 11:00pm May 17, 2023 9:50am 24 hr nitroglycerin 0.2 mg/hr transdermal system (13 sources) Nitrate Vasodilator Start: 03-08-2023 End: 05-17-2023 [...] release oral tablet (20 sources) Start: 03-08-2023 take 10 mEq by mouth once daily in the morning Potassium Chloride Active 10 MEQ PO Every morning March 08, 2023 12:00am Start: 03-08-2023 End: 04-22-2024 Potassium Chloride 10 mEq ta blet extended release Discontinued 10 MEQ PO EVERY 3 WEEKS March 07, 2023 11:00pm April 22, 2024 12:22pm 3 times a week on even days take 1 tablet by tina th twice [...] Active take 1 tablet by tina th once daily Potassium Chloride Iram ER 10 MEQ Oral [...] Not-Taking Psyllium Husk (Metamucil) 0.4 gram Capsule (11 sources) Start: 03-08-2023 End: 05-17-2023 Psyllium Husk [...] tablet Discontinued 0.25 MG PO Daily 90 90 December 18, 2023 9:31am February 27, 2024 9:38am Start: 11-23-2022 End: 05-17-2023 take 1 tablet by mouth once daily at bedtime as needed Ropinirole 0.25 mg tablet Discontinued 0.25 MG PO Daily at bedtime as needed for restless legs March 07, 2023 11:00pm May 17, 2023 9:51am sacubitril 24 mg / valsartan 26 mg oral tablet (20 sources) Angiotensin 2 Receptor Humaira Start: 02-20-2024 End: 10-08-2024 take 1 tablet by mouth twice daily Sacubitril-Valsartan (Entresto) 24-26 mg tablet Discontinued 1 TAB PO Twice daily February 25, 2024 11:00pm March 19, 2024 1:54pm Start: 02-20-2024 take 1 tablet by tina th in the morning Entresto 24-26 MG tablet Take 1 tablet by mouth in the morning and 1 tablet in the evening. 02/20/2024 Active sulfamethoxazole 800 mg / trimethoprim 160 mg [...] 2023 11:00pm June 13, 2024 1:15pm Temazepam Not-Ta Comment on above: Take by mouth at bed time as needed. ticagrelor 90 mg oral tablet (15 sources) Start: 03-09-2023 End: 05-17-2023 take 1 [...] Generalized anxiety disorder; Translations: [Generalized anxiety disorder] Onset: 11-24-2024 Chronic Cardiac dysrhythmias (20 sources) Palpitations; Translations: [Bradycardia, unspecified] Onset: 08-17-2015 Episodic Chronic kidney disease (2 sources) Chronic kidney disease; Translations: [Chronic kidney disease, unspecified] 12-16-2024 Chronic Chronic obstructive pulmonary disease and bronchiectasis (20 sources) Simple chronic bronchitis; Translations: [Simple chronic bronchitis] Onset: 11-24-2024 Chronic Congestive heart failure; nonhypertensive (20 sources) [...] Translations: [Other and unspecified angina pectoris] Onset: 10-17-2023 Chronic Comment on above: LHC w/ PCI/stent LAD , RCA (Feb, 2023) Problem List clean-u p per request of Phys. EHR Cmte Deficiency and other anemia (20 sources) Anemia; Translations: [Anemia, unspecified] Onset: 11-24-2024 06-04-2023 Episodic Deficiency and other anemia (9 sources) Anemia, unspecified; Translations: [Anemia, unspecified] Onset: [...] Chronic Hypertension with complications and secondary hypertension (12 sources) Hypertensive heart disease with heart failure; Translations: [Hypertensive emergency] Onset: 02-14-2023 05-17-2023 Chronic Comment on above: Problem List clean-u p per request of Phys. EHR Cmte Immunizations and screening for infectious disease (20 sources) Other specified abnormal immunological findings in serum; Translations: [Abnormal blood test] Onset: 11-24-2024 01-31-2024 Episodic Lymphadenitis (20 sources) Submandibular lymphadenopathy; Translations: [Localized enlarged lymph nodes] Onset: 09-11-2022 Episodic Malaise and fatigue (20 sources) Malaise; Translations: [Other malaise] Resolved: 08-18-2020 01-31-2024 Episodic Menopausal disorders (20 sources) Atrophic vaginitis; Translations: [Postmenopausal atrophic vaginitis] Onset: 11-24-2024 01-31-2024 Chronic Miscellaneous mental health disorders (20 sources) Primary insomnia; Translations: [Primary insomnia] Chronic Neoplasms of unspecified nature or uncertain behavior (20 sources) Monoclonal paraproteinemia; Translations: [Monoclonal gammopathy] Chronic Osteoarthritis (20 sources) Osteoarthritis; Translations: [Polyosteoarthritis, unspecified] Onset: 05-24-2015 Chronic Other aftercare (1 source) snf (current) use of aspirin; Translations: [LONG-TERM CURRENT USE OF ASPIRIN] Onset: 02-14-2023 Episodic Other aftercare (1 source) Other half-way (current) drug therapy; Translations: [OTH MUSIC COORDINATOR CURRENT DRUG THERAPY] Onset: 02-14-2023 Episodic Other [...] venous insufficiency; Translations: [Venous insufficiency (chronic) (peripheral)] Onset: 11-24-2024 01-31-2024 Episodic Other diseases of veins and [...] adrenal gland, unspecified Chronic Other endocrine disorders (12 sources) Adrenal mass; Translations: [Other specified disorders of adrenal gland] Onset: 11-24-2024 01-31-2024 Chronic Other eye disorders (20 sources) [...] of breath] Episodic Other lower respiratory disease (5 sources) Shortness of breath; Translations: [SHORTNESS OF BREATH] Onset: 02-08-2023 Episodic Other lower respiratory disease (13 sources) Acute cardiac pulmonary edema ; Translations: [Acute pulmonary edema] Onset: 11-24-2024 05-17-2023 Episodic Comment on above: Problem List clean-u p per request of Phys. EHR Cmte Other lower respiratory disease (10 sources) Hypoxia; Translations: [Hypoxemia] 05-17-2023 Episodic Comment on above: Problem List clean-u p per request of Phys. EHR Cmte Other lower respiratory disease (1 source) Acute pulmonary edema; Translations: [Acute edema of lung, unspecified] 05-18-2023 Episodic Other lower respiratory disease (1 [...] disorders (3 sources) Body mass index (BMI) 33.0-33.9, adult; Translations: [Body mass index (BMI) 33.0-33.9, adult] Onset: 10-08-2024 Chronic Other screening for suspected conditions (not mental disorders or infectious disease) (20 sources) Encounter for screening mammogram for malignant [...] [ACUTE RESPIRATORY FAIL W/HYPOXIA] Onset: 02-14-2023 Episodic Retinal detachments; defects; vascular occlusion; and retinopathy (4 sources) Epiretinal membrane of left eye; 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, left eye] Onset: 04-28-2024 04-28-2024 Chronic Skin and subcutaneous tissue infections (2 sources) [...] [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 Comment on above: US: right 16mm TR4, left 5-7mm TR4 - 08/2024 US: right 16mm TR4, left 5-7mm TR4 - 08/2024FNA: right nodule 11/17/24 Unclassified (3 sources) CONTACT W/AND (SUSP) EXPOS COVID-19; Translations: [CONTACT W/AND (SUSP) EXPOS COVID-19] Onset: 05-08-2022 Viral infection (20 sources) COVID-19; Translations: [Disease caused by 2019-nCoV] Onset: 05-08-2022 Past or Other Problems Problem Classification Problem Date Documented Da te Episodic/Chronic Coronary atherosclerosis and other heart disease (4 sources) Patient post percutaneous transluminal coronary angioplasty; Translations: [Percutaneous transluminal coronary angioplasty status] Onset: 10-08-2024 10-08-2024 Episodic Esophageal disorders (20 sources) Esophageal disorders; Translations: [Gastroesophageal reflux disease with esophagitis without hemorrhage] Headache; including migraine (20 sources) Headache; Translations: [Headache, unspecified] Onset: 10-19-2015 Episodic Inflammation; infection of eye (except that caused by tuberculosis or sexually transmitteddisease) (4 sources) Blepharitis of upper and lower eyelids of bilateral eyes; Translations: [Unspecified blepharitis right eye, upper and lower eyelids] Onset: 04-28-2024 04-28-2024 Episodic Mycoses (20 sources) Candidiasis of mouth; Translations: [Candidal stomatitis] Onset: 09-08-2013 Episodic Nonmalignant breast conditions (20 sources) Pain of breast; Translations: [Mastodynia] Resolved: 03-24-2020 Episodic Nonspecific chest pain (20 sources) Precordial pain; Translations: [Chest pain] Onset: 02-16-2015 Episodic Other connective tissue disease (20 sources) Shoulder lesion, unspecified, left shoulder; Translations: [Shoulder lesion, unspecified, left shoulder] Onset: 02-08-2016 Episodic Other eye disorders (4 sources) Dry eyes; Translations: [Dry eye syndrome of bilateral lacrimal glands] Onset: 04-28-2024 04-28-2024 Episodic Other lower respiratory disease (20 sources) Cough; Translations: [Cough, unspecified] Onset: 11-25-2014 Episodic Other lower respiratory disease (9 sources) Dyspnea; Translations: [Shortness of breath] Onset: [...] of mental health and substance abuse codes (19 sources) Ex-smoker; Translations: [Personal history of tobacco [...] Unclassified (1 source) Chronic cough R05.3 Unclassified (9 sources) Onset: 03-05-2024 Resolved: 01-12-2025 03-05-2024 Urinary tract infections (20 sources) Urethral syndrome; 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, unspecified] Resolved: 07-18-2021 Episodic Viral infection (12 sources) Disease caused by 2019-nCoV; Translations: [COVID-19] Onset: 10-17-2023 10-17-2023 Episodic Results Test Name Value Interpretation Reference Range Facility Estimated glomerular filtrat ion rate (GFR) non- Americanon 12-18-2024 GFR/1.73 sq M.predicted among non-blacks MDRD (S/P/Bld) [Vol rate/Area] Estimated glomerular filtration rate (GFR) non- Low >=60 mL/min/1.73 m 2 [facility] - Chemistry and C hemistry - challengeon 12-18-2024 Calcium [Mass/Vol] 8.9 mg/dL 8.5-10.1 [facility] Chloride [Moles/Vol] 105 mmol/L 98-107 [facility] CO2 [Moles/Vol] 30.4 mmol/L 21.0-32.0 [facility] Creatinine [Mass/Vol] 1.57 mg/dL High 0.55-1.[address] [facility] Free T4 [Mass/Vol] 0.90 ng/dL 0.76-1.46 [facility] GFR/1.73 sq M.predicted MDRD (S/P/Bld) [Vol rate/Area] 38 mL/min/{1.73_m2} Low >=60 mL/min/1.73 m 2 [facility] Glucose [Mass/Vol] 119 mg/dL High 74-106 [facility] Potassium [Moles/Vol] 4.1 mmol/L 3.5-5.[address] [facility] Sodium [Moles/Vol] 143 mmol/L 136-145 [facility] TSH Qn 2.650 m[IU]/L 0.358-3.740 [facility] Urea nitrogen [Mass/Vol] 28.0 mg/dL High 7.0-18.0 [facility] Urea nitrogen/Creatinine [Mass ratio] 17.8 mg/mg [facility] Serum or plasma anion gap de terminationon 12-18-2024 Anion gap [Moles/Vol] Serum or plasma an ion gap determination [facility] INR in Platelet poor plasma by Coagulation assayOrdered By: Nathan Hathaway on 11-17-2024 INR Coag (PPP) [Relative time] INR in Platelet poor plasma by Coagulation assay [facility] Comment on above: INR Therapeutic Rang e A) Pre- and Peroperative OAT started two weeks before surgery. NOT HIP SURGERY: 1.5 - 2.5 HIP SURGERY: 2 - 3B) Primary and secondary prevention of venous THROMBOSIS: 2 - 3C) Active venous thrombosis, pulmonary embolismand prevention of recurrent venous thrombosis: 2 - 3D) Prevention of arterial thromboembolismincluding patients with mechanical heart valves: 3 - 4.5 Arnoldo 11-17-2024 L ----- Specimen: [id number] Received: 11/17/24 Status: SERENITY Rojas Num: [id number] Spec Type: Cytology Subm Dr: Seth Ley DO Tissues: A FNA SLIDES PATH (FNA THYROID) Procedures: -, DIFF QWIK/3, PAPSTN/4 Age/ Patient Sex Location Account Attending Physician Lashaun Joaquin 84/F [id number] Nathan Hathaway DO SPEC NUM: [id number] RECD: 11/17/24 STATUS: RHONDAAlbino ROJAS NUM: [id number] JED: 11/17/24- SUBM DR: Seth Ley DO ENTERED: 11/17/[address]: Nathan Hathaway DO SPEC TYPE: Cytology DEPT: CNG ENTERED BY: [id number] RECV BY: [id number] ORDERED: -, DIFF QWIK/3, PAPSTN/4 ORDERED: -, DIFF QWIK/3, PAPSTN/4 Pathological Diagnosis Thyroid nodule, US-guided FNA: Satisfactory for evaluation. Benign ([place] category I). Clinical Information Thyroid Nodule,adrenal nodule, hypothyroidism Gross Description Received fixed in Cytolyt is 32 ml red hazy fixed fluid for cytology said to have been obtained as Thyroid. ThinPrep preparations are prepared for microscopic examination. Also received are 6 total smeared slides and a Veracyte vial stored at -20 for microscopic examination. (CC/nh) Immediate Evaluation Thyroid, FNA, immediate evaluation: Mostly macrophages and colloid; additional pass requested. 11/17/2024, 12:20 PM Specimen: [id number] Received: 11/17/24 Status: RHONDAAlbino Rojas Num: [id number] Spec Type: Cytology Subm Dr: Seth Ley DO Tissues: A FNA SLIDES PATH (FNA THYROID) Procedures: -, DIFF QWIK/3, PAPSTN/4 Patient: Kemar Joaquinn [id number] (Continued) Specimen: [id number] Received: 11/17/24 (Continued) Signed (signature on file) Lala Mast MD 11/18/24 0857 Specimen: [id number] Received: 11/17/24 Status: SERENITY Rojas Num: [id number] Spec Type: Cytology Subm Dr: Seth Ley DO Tissues: A FNA SLIDES PATH (FNA THYROID) Procedures: -, DIFF QWIK/3, PAPSTN/4 Patient: Lashaun Joaquin [id number] (Continued) Specimen: [id number] Received: 11/17/24 (Continued) CPT Codes 88384, 04149 Specimen: Received: 11/17/24 Status: SERENITY Rojas Num: [id number] Spec Type: Cytology Subm Dr: Seth Ley DO Tissues: A FNA SLIDES PATH (FNA THYROID) Procedures: -, DIFF QWIK/3, PAPSTN/4 Patient: JoaquinLashaun [id number] (Continued) Signed (signature on file) Lala Mast MD 11/18/24 0857 Normal [facility] Partial Thromboplastin Timeo n 11-17-2024 aPTT Coag (Bld) [Time] 28.9 s Normal 25.1-36.5 [facility] Comment on above: Result Comment: A he matocrit value greater than 55% may lead to inaccurate results in coagulation testing. Patients having hematocrit values >55% require a special collection tube for coagulation studies. Please contact the laboratory at [phone] for redraw instructions. PERFORMED BY: [place] [address] PATHOLOGIST [employer] GRADER RAMEZ MONTES M.D. Performed By: #### P TT, PT #### [facility] [address] [place] [address] Platelet Counton 11-17-2024 Platelets (Bld) [#/Vol] 253 10*3/uL Normal 150-450 [facility] Comment on above: Result Comment: PERF ORMED BY: [place] [address] PATHOLOGIST [employer]IES GRADER RAMEZ MONTES M.D. Performed By: #### P LT #### [facility] [address] [place] [address] Platelets Auto (Bld) [#/Vol] Ordered By: Nathan Hathaway on 11-17-2024 Platelets (Bld) [#/Vol] Platelets [#/volume] in Blood by Automated count 150-450 [facility] Prothrombin Time INRon 11-17 INR Coag (PPP) [Relative time] 1.0 {INR} Normal [facility] Comment on above: Result [...] 3 - 4.5 Performed By: #### P TT, PT #### [facility] [address] [place] [id number] [facility] PT Coag (PPP) [Time] 11.9 s Normal 9.0-12.9 [facility] Comment on above: Result Comment: A he matocrit value greater than 55% may lead to inaccurate results in coagulation testing. Patients having hematocrit values >55% require a special collection tube for coagulation studies. Please contact the laboratory at [phone] for redraw instructions. Performed By: #### P TT, PT #### [facility] [address] [id number] [facility] Prothrombin time (PT)Ordered By: Nathan Hathaway on 11-17-2024 PT Coag (PPP) [Time] Prothrombin time (PT) 9.0- 12.9 [facility] Comment on above: A hematocrit value g reater than 55% may lead to inaccurate results in coagulation testing. Patients having hematocrit values >55% require a special collection tube for coagulation studies. Please contact the laboratory at [phone] for redraw instructions. US needle aspirationon 11-17 US needle aspiration [facility] Main [place] [address] [place], [place] [id number] Ultrasound Report Signed Patient: Lashaun Joaquin MR#: [id number] : 1940 Acct:[id number] Age/Sex: 84 / F ADM Date: 11/17/24 Loc: Room: Type: [facility] Attending Dr: Nathan Hathaway DO Ordering Provider: Nathan Hathaway DO Date of Service: 11/17/24 US/US needle aspiration: E04.1 Copies to: Nathan Hathaway DO Ultrasound-guided fine-needle aspiration of right thyroid nodule HISTORY: Solid and cystic 11 mm right thyroid nodule. Informed consent was obtained. Skin at site prepped and draped in sterile fashion with local lidocaine administered. A total of 5 passes with 20-gauge needle. Preliminary results: Colloid features. Scant follicular cells. Await final pathology. No immediate complications. Patient discharged in satisfactory condition. US/US needle aspiration IMPRESSION: Successful fine-needle aspiration of right thyroid nodule Impression dictated by: Seth Ley M.D.11/17/2024 12:41 PM Dictation Location: [place] [address] Tech: Deja Marinoporter Transcribed By: LAURA 11/17/24 1241 Dictated By: Seth Ley DO 11/17/24 1159 Signed By: 11/17/24 1241 Normal [facility] aPTT in Platelet poor plasma by Coagulation assayOrdered By: Nathan Hathaway on 11-17-2024 aPTT Coag (PPP) [Time] Activated partial thromboplastin time (aPTT) in platelet poor plasma by coagulation a 25.1-36.5 [facility] Comment on above: A hematocrit value g reater than 55% may lead to inaccurate results in coagulation testing. Patients having hematocrit values >55% require a special collection tube for coagulation studies. Please contact the laboratory at [phone] for redraw instructions. Estimated glomerular filtrat ion rate (GFR) non- Americanon 09-12-2024 GFR/1.73 sq M.predicted among non-blacks MDRD (S/P/Bld) [Vol rate/Area] Estimated glomerular filtration rate (GFR) non- Low >=60 mL/min/1.73 m 2 [facility] - Chemistry and C hemistry - challengeon 09-12-2024 Calcium [Mass/Vol] 8.6 mg/dL 8.5-10.1 [facility] Chloride [Moles/Vol] 108 mmol/L High 98-107 [facility] CO2 [Moles/Vol] 27.0 mmol/L 21.0-32.0 [facility] Creatinine [Mass/Vol] 1.39 mg/dL High 0.55-1.[address] [facility] Free T4 [Mass/Vol] 0.80 ng/dL 0.76-1.46 [facility] GFR/1.73 sq M.predicted MDRD (S/P/Bld) [Vol rate/Area] 44 mL/min/{1.73_m2} Low >=60 mL/min/1.73 m 2 [facility] Glucose [Mass/Vol] 85 mg/dL 74-106 [facility] Potassium [Moles/Vol] 4.5 mmol/L 3.5-5.[address] [facility] Sodium [Moles/Vol] 144 mmol/L 136-145 [facility] TSH Qn 3.767 m[IU]/L High 0.358-3.740 [facility] Urea nitrogen [Mass/Vol] 20.0 mg/dL High 7.0-18.0 [facility] Urea nitrogen/Creatinine [Mass ratio] 14.4 mg/mg [facility] Serum or plasma anion gap de terminationon 09-12-2024 Anion gap [Moles/Vol] Serum or plasma an ion gap determination [facility] Estimated glomerular filtrat ion rate (GFR) non- Americanon 05-20-2024 GFR/1.73 sq M.predicted among non-blacks MDRD (S/P/Bld) [Vol rate/Area] 39 mL/min/{1.73_m2} Low >=60 [facility] - Chemistry and C hemistry - challengeon 05-20-2024 Calcium [Mass/Vol] 8.8 mg/dL 8.5-10.1 [facility] Chloride [Moles/Vol] 106 mmol/L 98-107 [facility] CO2 [Moles/Vol] 30.8 mmol/L 21.0-32.0 [facility] Creatinine [Mass/Vol] 1.30 mg/dL High 0.55-1.[address] [facility] GFR/1.73 sq M.predicted MDRD (S/P/Bld) [Vol rate/Area] 48 mL/min/{1.73_m2} Low >=60 [facility] Glucose [Mass/Vol] 89 mg/dL 74-106 [facility] Potassium [Moles/Vol] 4.3 mmol/L 3.5-5.[address] [facility] Sodium [Moles/Vol] 143 mmol/L 136-145 [facility] Urea nitrogen [Mass/Vol] 24.0 mg/dL High 7.0-18.0 [facility] Urea nitrogen/Creatinine [Mass ratio] 18.5 mg/mg [facility] Serum or plasma anion gap de terminationon 05-20-2024 Anion gap [Moles/Vol] 10.5 mmol/L [facility] Estimated glomerular filtrat ion rate (GFR) non- Americanon 04-30-2024 GFR/1.73 sq M.predicted among non-blacks MDRD (S/P/Bld) [Vol rate/Area] 37 mL/min/{1.73_m2} Low >=60 [facility] - Chemistry and C hemistry - challengeon 04-30-2024 Calcium [Mass/Vol] 8.5 mg/dL 8.5-10.1 [facility] Chloride [Moles/Vol] 106 mmol/L 98-107 [facility] CO2 [Moles/Vol] 28.7 mmol/L 21.0-32.0 [facility] Creatinine [Mass/Vol] 1.36 mg/dL High 0.55-1.[address] [facility] GFR/1.73 sq M.predicted MDRD (S/P/Bld) [Vol rate/Area] 45 mL/min/{1.73_m2} Low >=60 [facility] Glucose [Mass/Vol] 98 mg/dL 74-106 [facility] Potassium [Moles/Vol] 4.3 mmol/L 3.5-5.[address] [facility] Sodium [Moles/Vol] 142 mmol/L 136-145 [facility] Urea nitrogen [Mass/Vol] 26.0 mg/dL High 7.0-18.0 [facility] Urea nitrogen/Creatinine [Mass ratio] 19.1 mg/mg [facility] Serum or plasma anion gap de terminationon 04-30-2024 Anion gap [Moles/Vol] 11.6 mmol/L [facility] NM Heart Perfusion W stress and W radionuclide Rikva 05-15-2024 Normal Lexiscan Myov iew cardiac perfusion stress test. No evidence of ischemia or myocardial infarction by perfusion imaging. Normal left ventricular systolic function, ejection fraction 88%. When compared previous study changes are noted. Previous study showed anterior wall ischemia which was not present during the study. Signed by: Faustino Zuniga 03/12/2024 4:34 PM Dictation workstation: [id number] Interpreted By: Faustino Zuniga and Giannuzzi Michael STUDY: MYOCARDIAL PERFUSION STRESS TEST WITH LEXISCAN Performing facility: [facility], [address] [place] [address], [address], [address] Provider: Holden Rosado RN, DRY MAN PCP: Dr. Ksenia Hathaway Supervising provider: Anthony Perry DO, [facility] INDICATION: ASHD HISTORY: Gender: F; Age: 83 y/o ; Height: HT 165.1 cm cm; Weight: WT 88.905 kg kg. CAD; High Cholesterol; HTN; Fatigue; Quit smoking 44 years ago. Cardiac catheterization on 2022. PTCA on 2022. COMPARISON: Previous nuclear testing completed [id number] at [place]. ACCESSION NUMBER(S): [id number] ORDERING CLINICIAN: HOLDEN ROSADO TECHNIQUE: ONE DAY [...] There were evidence of breast attenuation artifact. [facility] Faustino Zuniga MD - 03/12/2024 Interpreted By: Faustino Zuniga and Giannuzzi Michael STUDY: MYOCARDIAL PERFUSION STRESS TEST WITH LEXISCAN Performing facility: [facility], [address] [place] [address], [address], [place] [address] [facility] Provider: Holden Rosado RN, DRY MAN PCP: Dr. Ksenia Hathaway Supervising provider: Anthony Perry DO, [facility] INDICATION: ASHD HISTORY: Gender: F; Age: 83 y/o ; Height: HT 165.1 cm cm; Weight: WT 88.905 kg kg. CAD; High Cholesterol; HTN; Fatigue; Quit smoking 44 years ago. Cardiac catheterization on 2022. PTCA on 2022. COMPARISON: Previous nuclear testing completed at [place]. ACCESSION NUMBER(S): [id number] ORDERING CLINICIAN: HOLDEN ROSADO TECHNIQUE: ONE DAY [...] Faustino Zuniga 03/12/2024 4:34 PM Dictation workstation: [id number] [facility] Work Phone: Radiology Study observation (narrative) [facility] Work Phone: NM Heart Perfusion W stress and W radionuclide IVOrdered By: Faustino Zuniga on 03-12-2024 [facility] Work Phone: NUCLEAR STRESS TESTon 2023 NUCLEAR STRESS TEST Interpreted By: Faustino Zuniga and Giannuzzi Michael STUDY: MYOCARDIAL PERFUSION STRESS TEST WITH LEXISCAN Performing facility: [facility], [address] [place] [address], [address], [address] Provider: Holden Rosado RN, DRY MAN PCP: Dr. Ksenia Hathaway Supervising provider: Anthony Perry DO, [facility] INDICATION: ASHD HISTORY: Gender: F; Age: 83 y/o ; Height: HT 165.1 cm cm; Weight: WT 88.905 kg kg. CAD; High Cholesterol; HTN; Fatigue; Quit smoking 44 years ago. Cardiac catheterization on 2022. PTCA on 2022. COMPARISON: Previous nuclear testing completed at [place]. ACCESSION NUMBER(S): [id number] ORDERING CLINICIAN: HOLDEN ROSADO TECHNIQUE: ONE DAY [...] Faustino Zuniga 03/12/2024 4:34 PM Dictation workstation: [id number] [facility] Basic Metabolic Panelon GFR/1.73 sq M.predicted MDRD (S/P/Bld) [Vol rate/Area] 39.134 mL/min/{1.73_m2} Normal [facility] Comment on above: Performed By: #### B MP #### [facility] [address] Calcium [Mass/volume] in Ser um or PlasmaOrdered By: Holden Rosado on 03-05-2024 Calcium [Mass/Vol] 9.2 mg/dL Normal 8.6-10.3 [facility] Comment on above: Result Comment: PERF ORMED BY: [address] [place] [address] PATHOLOGIST [employer] GRADER JAMAAL MO M.D. Performed By: #### B MP #### [facility] [address] [place] [address] [facility] Carbon dioxide, total [Moles /volume] in Serum or PlasmaOrdered By: Holden Rosado on 03-05-2024 CO2 [Moles/Vol] 32.1 mmol/L High 21.0-31.0 [facility] Comment on above: Performed By: #### B MP #### [facility] [address] Chloride [Moles/volume] in S courtney or PlasmaOrdered By: Holden Rosado on 03-05-2024 Chloride [Moles/Vol] 104 mmol/L Normal 98-107 [facility] Comment on above: Performed By: #### B MP #### [facility] [address] Creatinine [Mass/volume] in Serum or PlasmaOrdered By: Holden Rosado on 03-05-2024 Creatinine [Mass/Vol] 1.36 mg/dL High 0.60-1.[address] [facility] Comment on above: Performed By: #### B MP #### [place] [address] [place] Glucose [Mass/volume] in Ser um or PlasmaOrdered By: Holden Rosado on 03-05-2024 Glucose [Mass/Vol] 79 mg/dL Normal 70-100 [facility] Comment on above: ADA recommended refe rence rangeRandom Glucose Reference Range is dependent on time and content of last meal. Glucose of more than 200 mg/dL in a nonstressed, ambulatory subject supports the diagnosis of Diabetes Mellitus. Result Comment: [place] om Glucose Reference Range is dependent on time and content of last meal. Glucose of more than 200 mg/dL in a nonstressed, ambulatory subject supports the diagnosis of Diabetes Mellitus. ADA recommended reference range Performed By: #### B MP #### [address] No Panel InformationOrdered By: Holden Rosado on 03-05-2024 Estimated GFR (CKD-EPI) 39.134 mL/Min [facility] Creatinine Clearance (Chem N/A [facility] Potassium [Moles/volume] in Serum or PlasmaOrdered By: Holden Rosado on 03-05-2024 Potassium [Moles/Vol] 5.2 mmol/L High 3.5-5.[address] [facility] Comment on above: Performed By: #### B MP #### [facility] [address] Serum or plasma anion gap de terminationOrdered By: Holden Rosado on 03-05-2024 Anion gap [Moles/Vol] 10.1 mmol/L Normal 6.0-15.0 [facility] Comment on above: Performed By: #### B MP #### [facility] [address] [place] [address] [place] Sodium [Moles/volume] in Ser um or PlasmaOrdered By: Holden Rosado on 03-05-2024 Sodium [Moles/Vol] 141 mmol/L Normal 136-145 [facility] Comment on above: Performed By: #### B MP #### [facility] [address] Urea nitrogen [Mass/volume] in Serum or PlasmaOrdered By: Holden Rosado on 03-05-2024 Urea nitrogen [Mass/Vol] 26 mg/dL High 7-25 [facility] Comment on above: Performed By: #### B MP #### [facility] [address] [place] [address] [place] Basophils Auto (Bld) [#/Vol] on 02-20-2024 Basophils (Bld) [#/Vol] 0.0 10 3/uL 0.0-0.1 [facility] Basophils/100 WBC Auto (Bld) on 02-20-2024 Basophils/100 WBC (Bld) 0.8 % 0.2-2.0 [facility] Eosinophils/100 WBC Auto (Bl d)on 02-20-2024 Eosinophils/100 WBC (Bld) 2.8 % 0.9-7.0 [facility] Erythrocyte distribution wid th Auto (RBC) [Ratio]on 02-20-2024 Erythrocyte distribution width (RBC) [Ratio] 13.1 % 11.0-15.0 [facility] Estimated glomerular filtrat ion rate (GFR) non- Americanon 02-20-2024 GFR/1.73 sq M.predicted among non-blacks MDRD (S/P/Bld) [Vol rate/Area] 49 mL/min/{1.73_m2} >=60 [facility] Globulin Calc (S) [Mass/Vol] on 02-20-2024 Globulin (S) [Mass/Vol] 2.7 g/dL [facility] Hematocrit Auto (Bld) [Volum e fraction]on 02-20-2024 Hematocrit (Bld) [Volume fraction] 29.2 % 36.0-48.0 [facility] Hemoglobin [Mass/volume] in Bloodon 02-20-2024 Hemoglobin (Bld) [Mass/Vol] 9.5 g/dL 12.0-16.0 [facility] - Chemistry and C hemistry - challengeon 02-20-2024 Albumin [Mass/Vol] 2.9 g/dL 3.4-5.0 [facility] ALP [Catalytic activity/Vol] 44 U/L 46-116 [facility] ALT [Catalytic activity/Vol] 13 U/L 14-59 [facility] AST [Catalytic activity/Vol] 14 U/L 15-37 [facility] Bilirubin [Mass/Vol] 0.6 mg/dL 0.2-1.0 [facility] Calcium [Mass/Vol] 8.9 mg/dL 8.5-10.1 [facility] Chloride [Moles/Vol] 107 mmol/L 98-107 [facility] CO2 [Moles/Vol] 27.9 mmol/L 21.0-32.0 [facility] Creatinine [Mass/Vol] 1.08 mg/dL 0.55-1.[address] [facility] GFR/1.73 sq M.predicted MDRD (S/P/Bld) [Vol rate/Area] 59 mL/min/{1.73_m2} >=60 [facility] Glucose [Mass/Vol] 83 mg/dL 74-106 [facility] Potassium [Moles/Vol] 3.8 mmol/L 3.5-5.[address] [facility] Protein [Mass/Vol] 5.6 g/dL 6.4-8.2 [facility] Sodium [Moles/Vol] 141 mmol/L 136-145 [facility] Urea nitrogen [Mass/Vol] 18.0 mg/dL 7.0-18.0 [facility] Urea nitrogen/Creatinine [Mass ratio] 16.7 mg/mg [facility] Laboratory - Hematology and Cell countson 02-20-2024 Immature granulocytes/100 WBC (Bld) 0.2 % 0.0-0.5 [facility] Leukocytes [#/volume] correc miguel for nucleated erythrocytes in Blood by Automated counon 02-20-2024 WBC corrected for nucl RBC Auto (Bld) [#/Vol] 4.7 10 3/uL 4.0-11.0 [facility] Lymphocytes Auto (Bld) [#/Vo l]on 02-20-2024 Lymphocytes (Bld) [#/Vol] 1.0 10 3/uL 1.2-3.8 [facility] Lymphocytes/100 WBC Auto (Bl d)on 02-20-2024 Lymphocytes/100 WBC (Bld) 21.8 % 20.5-60.0 [facility] MCH Auto (RBC) [Entitic mass ]on 02-20-2024 MCH (RBC) [Entitic mass] 29.2 pg 26.7-34.0 [facility] MCHC Auto (RBC) [Mass/Vol]on 02-20-2024 MCHC (RBC) [Mass/Vol] 32.5 g/dL 29.9-35.[address] [facility] MCV Auto (RBC) [Entitic vol] on 02-20-2024 MCV (RBC) [Entitic vol] 89.8 fL 81.0-99.0 [facility] Monocytes Auto (Bld) [#/Vol] on 02-20-2024 Monocytes (Bld) [#/Vol] 0.7 10 3/uL 0.3-0.8 [facility] Monocytes/100 WBC Auto (Bld) on 02-20-2024 Monocytes/100 WBC (Bld) 14.2 % 1.7-12.0 [facility] Neutrophils Auto (Bld) [#/Vo l]on 02-20-2024 Neutrophils (Bld) [#/Vol] 2.8 10 3/uL 1.4-6.5 [facility] Neutrophils/100 WBC Auto (Bl d)on 02-20-2024 Neutrophils/100 WBC (Bld) 60.2 % 43.0-75.0 [facility] No Panel Informationon 02-19 Eosinophils # (Auto) 0.1 10 3/uL 0.0-0.[address] [facility] Immature Granulocyte # (Auto) 0.01 10 3/uL 0.00-0.03 [facility] Platelet mean volume Auto (B ld) [Entitic vol]on 02-20-2024 Platelet mean volume (Bld) [Entitic vol] 10.5 fL 9.5-13.5 [facility] Platelets Auto (Bld) [#/Vol] on 02-20-2024 Platelets (Bld) [#/Vol] 250 10 3/uL 150-450 [facility] RBC Auto (Bld) [#/Vol]on RBC (Bld) [#/Vol] 3.25 10 6/uL 4.20-5.40 [facility] Serum or plasma albumin/glob ulin mass ratioon 02-20-2024 Albumin/Globulin [Mass ratio] 1.1 {ratio} [facility] Serum or plasma anion gap de terminationon 02-20-2024 Anion gap [Moles/Vol] 9.9 mmol/L [facility] Basophils Auto (Bld) [#/Vol] on 02-19-2024 Basophils (Bld) [#/Vol] 0.0 10 3/uL 0.0-0.1 [facility] Basophils/100 WBC Auto (Bld) on 02-19-2024 Basophils/100 WBC (Bld) 0.8 % 0.2-2.0 [facility] Cholesterol in LDL Calc [Mas s/Vol]on 02-19-2024 Cholesterol in LDL [Mass/Vol] 100.4 mg/dL [facility] Comment on above: <100 mg/dl [id number] 0-129 mg/dl NEAR OR ABOVE [id number] mg/dl BORDERLINE [id number] mg/dl HIGH>190 mg/dl VERY HIGH Cholesterol in VLDL Calc [Ma ss/Vol]on 02-19-2024 Cholesterol in VLDL [Mass/Vol] 15.6 mg/dL [facility] Eosinophils/100 WBC Auto (Bl d)on 02-19-2024 Eosinophils/100 WBC (Bld) 1.9 % 0.9-7.0 [facility] Erythrocyte distribution wid th Auto (RBC) [Ratio]on 02-19-2024 Erythrocyte distribution width (RBC) [Ratio] 13.2 % 11.0-15.0 [facility] Estimated glomerular filtrat ion rate (GFR) non- Americanon 02-19-2024 GFR/1.73 sq M.predicted among non-blacks MDRD (S/P/Bld) [Vol rate/Area] 44 mL/min/{1.73_m2} >=60 [facility] Globulin Calc (S) [Mass/Vol] on 02-19-2024 Globulin (S) [Mass/Vol] 2.8 g/dL [facility] Hematocrit Auto (Bld) [Volum e fraction]on 02-19-2024 Hematocrit (Bld) [Volume fraction] 31.2 % 36.0-48.0 [facility] Hemoglobin [Mass/volume] in Bloodon 02-19-2024 Hemoglobin (Bld) [Mass/Vol] 10.0 g/dL 12.0-16.0 [facility] Laboratory - Chemistry and C hemistry - challengeon 02-19-2024 Albumin [Mass/Vol] 3.2 g/dL 3.4-5.0 [facility] ALP [Catalytic activity/Vol] 49 U/L 46-116 [facility] ALT [Catalytic activity/Vol] 15 U/L 14-59 [facility] AST [Catalytic activity/Vol] 15 U/L 15-37 [facility] Bilirubin [Mass/Vol] 0.5 mg/dL 0.2-1.0 [facility] Calcium [Mass/Vol] 9.4 mg/dL 8.5-10.1 [facility] Chloride [Moles/Vol] 108 mmol/L 98-107 [facility] Cholesterol [Mass/Vol] 158 mg/dL <=200 [facility] Cholesterol in HDL [Mass/Vol] 42 mg/dL 40-60 [facility] Comment on above: > or =60 mg/dl - LOW CARDIOVASCULAR RISK<40 mg/dl - HIGH CARDIOVASCULAR RISK CO2 [Moles/Vol] 28.7 mmol/L 21.0-32.0 [facility] Creatinine [Mass/Vol] 1.18 mg/dL 0.55-1.[address] [facility] GFR/1.73 sq M.predicted MDRD (S/P/Bld) [Vol rate/Area] 53 mL/min/{1.73_m2} >=60 [facility] Glucose [Mass/Vol] 93 mg/dL 74-106 [facility] Potassium [Moles/Vol] 4.0 mmol/L 3.5-5.[address] [facility] Protein [Mass/Vol] 6.0 g/dL 6.4-8.2 [facility] Sodium [Moles/Vol] 145 mmol/L 136-145 [facility] Triglyceride [Mass/Vol] 78 mg/dL <=150 [facility] TSH Qn 4.696 m[IU]/L 0.358-3.740 [facility] Urea nitrogen [Mass/Vol] 20.0 mg/dL 7.0-18.0 [facility] Urea nitrogen/Creatinine [Mass ratio] 16.9 mg/mg [facility] Laboratory - Hematology and Cell countson 02-19-2024 Immature granulocytes/100 WBC (Bld) 0.6 % 0.0-0.5 [facility] Leukocytes [#/volume] correc miguel for nucleated erythrocytes in Blood by Automated counon 02-19-2024 WBC corrected for nucl RBC Auto (Bld) [#/Vol] 5.3 10 3/uL 4.0-11.0 [facility] Lymphocytes Auto (Bld) [#/Vo l]on 02-19-2024 Lymphocytes (Bld) [#/Vol] 1.1 10 3/uL 1.2-3.8 [facility] Lymphocytes/100 WBC Auto (Bl d)on 02-19-2024 Lymphocytes/100 WBC (Bld) 21.3 % 20.5-60.0 [facility] MCH Auto (RBC) [Entitic mass ]on 02-19-2024 MCH (RBC) [Entitic mass] 29.6 pg 26.7-34.0 [facility] MCHC Auto (RBC) [Mass/Vol]on 02-19-2024 MCHC (RBC) [Mass/Vol] 32.1 g/dL 29.9-35.[address] [facility] MCV Auto (RBC) [Entitic vol] on 02-19-2024 MCV (RBC) [Entitic vol] 92.3 fL 81.0-99.0 [facility] Monocytes Auto (Bld) [#/Vol] on 02-19-2024 Monocytes (Bld) [#/Vol] 0.6 10 3/uL 0.3-0.8 [facility] Monocytes/100 WBC Auto (Bld) on 02-19-2024 Monocytes/100 WBC (Bld) 11.1 % 1.7-12.0 [facility] Neutrophils Auto (Bld) [#/Vo l]on 02-19-2024 Neutrophils (Bld) [#/Vol] 3.4 10 3/uL 1.4-6.5 [facility] Neutrophils/100 WBC Auto (Bl d)on 02-19-2024 Neutrophils/100 WBC (Bld) 64.3 % 43.0-75.0 [facility] No Panel Informationon 02-18 Eosinophils # (Auto) 0.1 10 3/uL 0.0-0.[address] [facility] Immature Granulocyte # (Auto) 0.03 10 3/uL 0.00-0.03 [facility] Platelet mean volume Auto (B ld) [Entitic vol]on 02-19-2024 Platelet mean volume (Bld) [Entitic vol] 10.4 fL 9.5-13.5 [facility] Platelets Auto (Bld) [#/Vol] on 02-19-2024 Platelets (Bld) [#/Vol] 262 10 3/uL 150-450 [facility] RBC Auto (Bld) [#/Vol]on RBC (Bld) [#/Vol] 3.38 10 6/uL 4.20-5.40 [facility] Serum or plasma albumin/glob ulin mass ratioon 02-19-2024 Albumin/Globulin [Mass ratio] 1.1 {ratio} [facility] Serum or plasma anion gap de terminationon 02-19-2024 Anion gap [Moles/Vol] 12.3 mmol/L [facility] Serum or plasma total choles terol/high density lipoprotein (HDL) cholesterol mass anastasia 02-19-2024 Cholesterol.total/Cho lesterol in HDL [Mass ratio] 3.8 {ratio} [facility] Comment on above: 3.3 - 4.4 LOW RISK4. 4 - 7.1 AVERAGE RISK7.1 - 11.0 MODERATE RISK>11.0 HIGH RISK Basophils Auto (Bld) [#/Vol] on 02-18-2024 Basophils (Bld) [#/Vol] 0.0 10 3/uL 0.0-0.1 [facility] Basophils/100 WBC Auto (Bld) on 02-18-2024 Basophils/100 WBC (Bld) 0.4 % 0.2-2.0 [facility] Eosinophils/100 WBC Auto (Bl d)on 02-18-2024 Eosinophils/100 WBC (Bld) 1.2 % 0.9-7.0 [facility] Erythrocyte distribution wid th Auto (RBC) [Ratio]on 02-18-2024 Erythrocyte distribution width (RBC) [Ratio] 13.2 % 11.0-15.0 [facility] Estimated glomerular filtrat ion rate (GFR) non- Americanon 02-18-2024 GFR/1.73 sq M.predicted among non-blacks MDRD (S/P/Bld) [Vol rate/Area] 34 mL/min/{1.73_m2} >=60 [facility] Hematocrit Auto (Bld) [Volum e fraction]on 02-18-2024 Hematocrit (Bld) [Volume fraction] 31.7 % 36.0-48.0 [facility] Hemoglobin [Mass/volume] in Bloodon 02-18-2024 Hemoglobin (Bld) [Mass/Vol] 10.3 g/dL 12.0-16.0 [facility] Laboratory - Chemistry and C hemistry - challengeon 02-18-2024 Magnesium [Mass/Vol] 2.3 mg/dL 1.8-2.4 [facility] Natriuretic peptide B (Bld) [Mass/Vol] 800.0 pg/mL <=1800.0 [facility] Calcium [Mass/Vol] 9.0 mg/dL 8.5-10.1 [facility] Chloride [Moles/Vol] 106 mmol/L 98-107 [facility] CO2 [Moles/Vol] 30.4 mmol/L 21.0-32.0 [facility] Creatinine [Mass/Vol] 1.46 mg/dL 0.55-1.[address] [facility] GFR/1.73 sq M.predicted MDRD (S/P/Bld) [Vol rate/Area] 42 mL/min/{1.73_m2} >=60 [facility] Glucose [Mass/Vol] 102 mg/dL 74-106 [facility] Potassium [Moles/Vol] 4.1 mmol/L 3.5-5.[address] [facility] Sodium [Moles/Vol] 144 mmol/L 136-145 [facility] Urea nitrogen [Mass/Vol] 21.0 mg/dL 7.0-18.0 [facility] Urea nitrogen/Creatinine [Mass ratio] 14.4 mg/mg [facility] Laboratory - Hematology and Cell countson 02-18-2024 Immature granulocytes/100 WBC (Bld) 0.7 % 0.0-0.5 [facility] Leukocytes [#/volume] correc miguel for nucleated erythrocytes in Blood by Automated counon 02-18-2024 WBC corrected for nucl RBC Auto (Bld) [#/Vol] 6.8 10 3/uL 4.0-11.0 [facility] Lymphocytes Auto (Bld) [#/Vo l]on 02-18-2024 Lymphocytes (Bld) [#/Vol] 0.8 10 3/uL 1.2-3.8 [facility] Lymphocytes/100 WBC Auto (Bl d)on 02-18-2024 Lymphocytes/100 WBC (Bld) 11.2 % 20.5-60.0 [facility] MCH Auto (RBC) [Entitic mass ]on 02-18-2024 MCH (RBC) [Entitic mass] 29.3 pg 26.7-34.0 [facility] MCHC Auto (RBC) [Mass/Vol]on 02-18-2024 MCHC (RBC) [Mass/Vol] 32.5 g/dL 29.9-35.[address] [facility] MCV Auto (RBC) [Entitic vol] on 02-18-2024 MCV (RBC) [Entitic vol] 90.1 fL 81.0-99.0 [facility] Monocytes Auto (Bld) [#/Vol] on 02-18-2024 Monocytes (Bld) [#/Vol] 0.6 10 3/uL 0.3-0.8 [facility] Monocytes/100 WBC Auto (Bld) on 02-18-2024 Monocytes/100 WBC (Bld) 9.5 % 1.7-12.0 [facility] Neutrophils Auto (Bld) [#/Vo l]on 02-18-2024 Neutrophils (Bld) [#/Vol] 5.2 10 3/uL 1.4-6.5 [facility] Neutrophils/100 WBC Auto (Bl d)on 02-18-2024 Neutrophils/100 WBC (Bld) 77.0 % 43.0-75.0 [facility] No Panel Informationon 02-17 Troponin I High Sensitivity 11.1 pg/mL 4.0-51.3 [facility] Comment on above: CUT-OFF POINTS HAVE BEEN [...] Eosinophils # (Auto) 0.1 10 3/uL 0.0-0.[address] [facility] Immature Granulocyte # (Auto) 0.05 10 3/uL 0.00-0.03 [facility] Platelet mean volume Auto (B ld) [Entitic vol]on 02-18-2024 Platelet mean volume (Bld) [Entitic vol] 10.1 fL 9.5-13.5 [facility] Platelets Auto (Bld) [#/Vol] on 02-18-2024 Platelets (Bld) [#/Vol] 255 10 3/uL 150-450 [facility] RBC Auto (Bld) [#/Vol]on RBC (Bld) [#/Vol] 3.52 10 6/uL 4.20-5.40 [facility] Serum or plasma anion gap de terminationon 02-18-2024 Anion gap [Moles/Vol] 11[facility]7 [facility] Basophils Auto (Bld) [#/Vol] on 02-02-2024 Basophils (Bld) [#/Vol] 0.1 10 3/uL 0.0-0.1 [facility] Basophils/100 WBC Auto (Bld) on 02-02-2024 Basophils/100 WBC (Bld) 1.1 % 0.2-2.0 [facility] Cholesterol in LDL Calc [Mas s/Vol]on 02-02-2024 Cholesterol in LDL [Mass/Vol] 113.6 mg/dL [facility] Comment on above: <100 mg/dl [id number] 0-129 mg/dl NEAR OR ABOVE [id number] mg/dl BORDERLINE [id number] mg/dl HIGH>190 mg/dl VERY HIGH Cholesterol in VLDL Calc [Ma ss/Vol]on 02-02-2024 Cholesterol in VLDL [Mass/Vol] 10.4 mg/dL [facility] Eosinophils/100 WBC Auto (Bl d)on 02-02-2024 Eosinophils/100 WBC (Bld) 2.3 % 0.9-7.0 [facility] Erythrocyte distribution wid th Auto (RBC) [Ratio]on 02-02-2024 Erythrocyte distribution width (RBC) [Ratio] 13.1 % 11.0-15.0 [facility] Estimated glomerular filtrat ion rate (GFR) non- Americanon 02-02-2024 GFR/1.73 sq M.predicted among non-blacks MDRD (S/P/Bld) [Vol rate/Area] 34 mL/min/{1.73_m2} >=60 [facility] Globulin Calc (S) [Mass/Vol] on 02-02-2024 Globulin (S) [Mass/Vol] 3.0 g/dL [facility] Hematocrit Auto (Bld) [Volum e fraction]on 02-02-2024 Hematocrit (Bld) [Volume fraction] 34.7 % 36.0-48.0 [facility] Hemoglobin [Mass/volume] in Bloodon 02-02-2024 Hemoglobin (Bld) [Mass/Vol] 10.9 g/dL 12.0-16.0 [facility] Laboratory - Chemistry and C hemistry - challengeon 02-02-2024 Albumin [Mass/Vol] 3.4 g/dL 3.4-5.0 [facility] ALP [Catalytic activity/Vol] 52 U/L 46-116 [facility] ALT [Catalytic activity/Vol] 13 U/L 14-59 [facility] AST [Catalytic activity/Vol] 14 U/L 15-37 [facility] Bilirubin [Mass/Vol] 0.3 mg/dL 0.2-1.0 [facility] Calcium [Mass/Vol] 9.3 mg/dL 8.5-10.1 [facility] Chloride [Moles/Vol] 109 mmol/L 98-107 [facility] Cholesterol [Mass/Vol] 169 mg/dL <=200 [facility] Cholesterol in HDL [Mass/Vol] 45 mg/dL 40-60 [facility] Comment on above: > or =60 mg/dl - LOW CARDIOVASCULAR RISK<40 mg/dl - HIGH CARDIOVASCULAR RISK CO2 [Moles/Vol] 29.8 mmol/L 21.0-32.0 [facility] Creatinine [Mass/Vol] 1.47 mg/dL 0.55-1.[address] [facility] GFR/1.73 sq M.predicted MDRD (S/P/Bld) [Vol rate/Area] 41 mL/min/{1.73_m2} >=60 [facility] Glucose [Mass/Vol] 104 mg/dL 74-106 [facility] Potassium [Moles/Vol] 4.9 mmol/L 3.5-5.[address] [facility] Protein [Mass/Vol] 6.4 g/dL 6.4-8.2 [facility] Sodium [Moles/Vol] 147 mmol/L 136-145 [facility] Triglyceride [Mass/Vol] 52 mg/dL <=150 [facility] TSH Qn 3.613 m[IU]/L 0.358-3.740 [facility] Urea nitrogen [Mass/Vol] 24.0 mg/dL 7.0-18.0 [facility] Urea nitrogen/Creatinine [Mass ratio] 16.3 mg/mg [facility] Laboratory - Hematology and Cell countson 02-02-2024 Immature granulocytes/100 WBC (Bld) 0.4 % 0.0-0.5 [facility] Leukocytes [#/volume] correc miguel for nucleated erythrocytes in Blood by Automated counon 02-02-2024 WBC corrected for nucl RBC Auto (Bld) [#/Vol] 5.6 10 3/uL 4.0-11.0 [facility] Lymphocytes Auto (Bld) [#/Vo l]on 02-02-2024 Lymphocytes (Bld) [#/Vol] 1.1 10 3/uL 1.2-3.8 [facility] Lymphocytes/100 WBC Auto (Bl d)on 02-02-2024 Lymphocytes/100 WBC (Bld) 20.2 % 20.5-60.0 [facility] MCH Auto (RBC) [Entitic mass ]on 02-02-2024 MCH (RBC) [Entitic mass] 29.8 pg 26.7-34.0 [facility] MCHC Auto (RBC) [Mass/Vol]on 02-02-2024 MCHC (RBC) [Mass/Vol] 31.4 g/dL 29.9-35.[address] [facility] MCV Auto (RBC) [Entitic vol] on 02-02-2024 MCV (RBC) [Entitic vol] 94.8 fL 81.0-99.0 [facility] Monocytes Auto (Bld) [#/Vol] on 02-02-2024 Monocytes (Bld) [#/Vol] 0.7 10 3/uL 0.3-0.8 [facility] Monocytes/100 WBC Auto (Bld) on 02-02-2024 Monocytes/100 WBC (Bld) 11.7 % 1.7-12.0 [facility] Neutrophils Auto (Bld) [#/Vo l]on 02-02-2024 Neutrophils (Bld) [#/Vol] 3.6 10 3/uL 1.4-6.5 [facility] Neutrophils/100 WBC Auto (Bl d)on 02-02-2024 Neutrophils/100 WBC (Bld) 64.3 % 43.0-75.0 [facility] No Panel Informationon 02-01 Eosinophils # (Auto) 0.1 10 3/uL 0.0-0.[address] [facility] Immature Granulocyte # (Auto) 0.02 10 3/uL 0.00-0.03 [facility] Platelet mean volume Auto (B ld) [Entitic vol]on 02-02-2024 Platelet mean volume (Bld) [Entitic vol] 10.6 fL 9.5-13.5 [facility] Platelets Auto (Bld) [#/Vol] on 02-02-2024 Platelets (Bld) [#/Vol] 253 10 3/uL 150-450 [facility] RBC Auto (Bld) [#/Vol]on RBC (Bld) [#/Vol] 3.66 10 6/uL 4.20-5.40 [facility] Serum or plasma albumin/glob ulin mass ratioon 02-02-2024 Albumin/Globulin [Mass ratio] 1.1 {ratio} [facility] Serum or plasma anion gap de terminationon 02-02-2024 Anion gap [Moles/Vol] 13.1 mmol/L [facility] Serum or plasma total choles terol/high density lipoprotein (HDL) cholesterol mass anastasia 02-02-2024 Cholesterol.total/Cho lesterol in HDL [Mass ratio] 3.8 {ratio} [facility] Comment on above: 3.3 - 4.4 LOW RISK4. 4 - 7.1 AVERAGE RISK7.1 - 11.0 MODERATE RISK>11.0 HIGH RISK Basic metabolic 2000 panelon 11-05-2023 Anion gap [Moles/Vol] 9 mmol/L Normal 9-18 [facility] Comment on above: Order Comment: Speci men Type: BLOOD SPECIMEN Ordering Facility: [facility] Address: [address] [address] Performed By: #### 5 7021-8 #### [facility] CLIA [id number] [address] [place] [address] Calcium [Mass/Vol] 9.6 mg/dL Normal 8.5-10.2 [facility] Comment on above: Order Comment: Speci men Type: BLOOD SPECIMEN Ordering Facility: [facility] Address: [address] [address] Performed By: #### 5 7021-8 #### [facility] CLIA [id number] [address] [place] [address] Chloride [Moles/Vol] 103 mmol/L Normal 97-105 [facility] Comment on above: Order Comment: Speci men Type: BLOOD SPECIMEN Ordering Facility: [facility] Address: [address] [address] Performed By: #### 5 7021-8 #### [facility] CLIA [id number] [address] [place] [address] CO2 [Moles/Vol] 29 mmol/L Normal 22-30 [facility] Comment on above: Order Comment: Speci men Type: BLOOD SPECIMEN Ordering Facility: [facility] Address: [address] [address] Performed By: #### 5 7021-8 #### [facility] CLIA [id number] [address] [place] [address] Creatinine [Mass/Vol] 1.48 mg/dL High 0.58-0.96 [facility] Comment on above: Order Comment: Speci men Type: BLOOD SPECIMEN Ordering Facility: [facility] Address: [address] [address] Performed By: #### 5 7021-8 #### [facility] CLIA [id number] [address] [place] [address] Creatinine and Glomerular filtration rate.predicted panel (S/P/Bld) 35 mL/min/1.73m??? Low >=60 [facility] Comment on above: Order Comment: Preet patino Type: BLOOD SPECIMEN Ordering Facility: [facility] Address: [place] [address] Result Comment: Shoshana mated Glomerular Filtration Rate [...] GFR. Performed By: #### 5 7021-8 #### [facility] CLIA [id number] [address] [place] [address] Glucose [Mass/Vol] 138 mg/dL High 74-99 [facility] Comment on above: Order Comment: Preet patino Type: BLOOD SPECIMEN Ordering Facility: [facility] Address: [place] [address] Result Comment: The [place] [employer] (ADA) provides guidance for cutoff [...] Standards of Medical Care in Diabetes 2016, [place] [employer]. Diabetes Care. 2016.39(Suppl 1). Performed By: #### 5 7021-8 #### [facility] CLIA [id number] [address] [place] [address] Potassium [Moles/Vol] 5.0 mmol/L Normal 3.7-5.1 [facility] Comment on above: Order Comment: Preet patino Type: BLOOD SPECIMEN Ordering Facility: [facility] Address: [address] Performed By: #### 5 7021-8 #### [facility] CLIA [id number] [address] [place], [place] [address] Sodium [Moles/Vol] 141 mmol/L Normal 136-144 [facility] Comment on above: Order Comment: Speci men Type: BLOOD SPECIMEN Ordering Facility: [facility] Address: [address] [address] Performed By: #### 5 7021-8 #### [facility] CLIA [id number] [address] [place], [place] [address] Urea nitrogen [Mass/Vol] 25 mg/dL High 7-21 [facility] Comment on above: Order Comment: Speci men Type: BLOOD SPECIMEN Ordering Facility: [facility] Address: [address] [address] Performed By: #### 5 7021-8 #### [facility] CLIA [id number] [address] [place], [place] [address] CBC W Auto Differential pane l (Bld)on 11-05-2023 Basophils (Bld) [#/Vol] 0.06 10*3/uL Normal <0.11 [facility] Comment on above: Order Comment: Speci men Type: BLOOD SPECIMEN Ordering Facility: [facility] Address: [address] [place] [address] Performed By: #### K LFRS #### [facility] CLIA [id number] [address] [place] [address] [place] Basophils/100 WBC (Bld) 0.9 % Normal [facility] Comment on above: Order Comment: Speci men Type: BLOOD SPECIMEN Ordering Facility: [facility] Address: [address] [place] [address] Performed By: #### K LFRS #### [facility] CLIA [id number] [address] [place] [address] [place] Differential cell count method Nom (Bld) Auto Normal [facility] Comment on above: Order Comment: Speci men Type: BLOOD SPECIMEN Ordering Facility: [facility] Address: [address] [place] [address] Performed By: #### K LFRS #### [facility] CLIA [id number] [address] [place] [address] [place] Eosinophils (Bld) [#/Vol] 0.10 10*3/uL Normal <0.46 [facility] Comment on above: Order Comment: Speci men Type: BLOOD SPECIMEN Ordering Facility: [facility] Address: [address] [place] [address] Performed By: #### K LFRS #### [facility] CLIA [id number] [address] [place] [address] [place] Eosinophils/100 WBC (Bld) 1.4 % Normal [facility] Comment on above: Order Comment: Speci men Type: BLOOD SPECIMEN Ordering Facility: [facility] Address: [address] [place] [address] Performed By: #### K LFRS #### [facility] CLIA [id number] [address] [place] [address] [place] Erythrocyte distribution width (RBC) [Ratio] 14.1 % Normal 11.5-15.0 [facility] Comment on above: Order Comment: Speci men Type: BLOOD SPECIMEN Ordering Facility: [facility] Address: [address] [place] [address] Performed By: #### K LFRS #### [facility] CLIA [id number] [address] [place] [address] [place] Hematocrit (Bld) [Volume fraction] 31.7 % Low 36.0-46.0 [facility] Comment on above: Order Comment: Speci men Type: BLOOD SPECIMEN Ordering Facility: [facility] Address: [address] [place] [address] Performed By: #### K LFRS #### [facility] CLIA [id number] [address] [place] [address] [place] Hemoglobin (Bld) [Mass/Vol] 10.4 g/dL Low 11.5-15.5 [facility] Comment on above: Order Comment: Speci men Type: BLOOD SPECIMEN Ordering Facility: [facility] Address: [address] [place] [address] Performed By: #### K LFRS #### [facility] CLIA [id number] [address] [place] [address] [place] Immature granulocytes (Bld) [#/Vol] 0.04 10*3/uL Normal <0.10 [facility] Comment on above: Order Comment: Speci men Type: BLOOD SPECIMEN Ordering Facility: [facility] Address: [address] [place] [address] Performed By: #### K LFRS #### [facility] CLIA [id number] [address] [place] [address] [place] Immature granulocytes/100 WBC (Bld) 0.6 % Normal [facility] Comment on above: Order Comment: Speci men Type: BLOOD SPECIMEN Ordering Facility: [facility] Address: [address] [place] [address] Performed By: #### K LFRS #### [facility] CLIA [id number] [address] [place] [address] [place] Lymphocytes (Bld) [#/Vol] 0.89 10*3/uL Low 1.00-4.00 [facility] Comment on above: Order Comment: Speci men Type: BLOOD SPECIMEN Ordering Facility: [facility] Address: [address] [place] [address] Performed By: #### K LFRS #### [facility] CLIA [id number] [address] [place] [address] [place] Lymphocytes/100 WBC (Bld) 12.8 % Normal [facility] Comment on above: Order Comment: Speci men Type: BLOOD SPECIMEN Ordering Facility: [facility] Address: [address] [place] [address] Performed By: #### K LFRS #### [facility] CLIA [id number] [address] [place] [address] [place] MCH (RBC) [Entitic mass] 29.3 pg Normal 26.0-34.0 [facility] Comment on above: Order Comment: Speci men Type: BLOOD SPECIMEN Ordering Facility: [facility] Address: [address] [place] [address] Performed By: #### K LFRS #### [facility] CLIA [id number] [address] [address] [place] MCHC (RBC) [Mass/Vol] 32.8 g/dL Normal 30.5-36.0 [facility] Comment on above: Order Comment: Speci men Type: BLOOD SPECIMEN Ordering Facility: [facility] Address: [address] [place] [address] Performed By: #### K LFRS #### [facility] CLIA [id number] [address] [place] [address] [place] MCV (RBC) [Entitic vol] 89.3 fL Normal 80.0-100.0 [facility] Comment on above: Order Comment: Speci men Type: BLOOD SPECIMEN Ordering Facility: [facility] Address: [address] [place] [address] Performed By: #### K LFRS #### [facility] CLIA [id number] [address] [place] [address] [place] Monocytes (Bld) [#/Vol] 0.69 10*3/uL Normal <0.87 [facility] Comment on above: Order Comment: Speci men Type: BLOOD SPECIMEN Ordering Facility: [facility] Address: [address] [place] [address] Performed By: #### K LFRS #### [facility] CLIA [id number] [address] [place] [address] [place] Monocytes/100 WBC (Bld) 9.9 % Normal [facility] Comment on above: Order Comment: Speci men Type: BLOOD SPECIMEN Ordering Facility: [facility] Address: [address] [place] [address] Performed By: #### K LFRS #### [facility] CLIA [id number] [address] [place] [address] [place] Neutrophils (Bld) [#/Vol] 5.16 10*3/uL Normal 1.45-7.50 [facility] Comment on above: Order Comment: Speci men Type: BLOOD SPECIMEN Ordering Facility: [facility] Address: [address] [place] [address] Performed By: #### K LFRS #### [facility] CLIA [id number] [address] [place] [address] [place] Neutrophils/100 WBC (Bld) 74.4 % Normal [facility] Comment on above: Order Comment: Speci men Type: BLOOD SPECIMEN Ordering Facility: [facility] Address: [address] [place] [address] Performed By: #### K LFRS #### [facility] CLIA [id number] [address] [place] [address] [place] Nucleated RBC (Bld) [#/Vol] 10*3/uL Normal <0.01 [facility] Comment on above: Order Comment: Speci men Type: BLOOD SPECIMEN Ordering Facility: [facility] Address: [address] [place] [address] Performed By: #### K LFRS #### [facility] CLIA [id number] [address] [place] [address] [place] Nucleated RBC/100 WBC (Bld) [Ratio] 0.0 /100 WBC Normal [facility] Comment on above: Order Comment: Speci men Type: BLOOD SPECIMEN Ordering Facility: [facility] Address: [address] [place] [address] Performed By: #### K LFRS #### [facility] CLIA [id number] [address] [place] [address] [place] Platelet mean volume (Bld) [Entitic vol] 9.9 fL Normal 9.0-12.7 [facility] Comment on above: Order Comment: Speci men Type: BLOOD SPECIMEN Ordering Facility: [facility] Address: [address] [place] [address] Performed By: #### K LFRS #### [facility] CLIA [id number] [address] [place] [address] [place] Platelets (Bld) [#/Vol] 262 10*3/uL Normal 150-400 [facility] Comment on above: Order Comment: Speci men Type: BLOOD SPECIMEN Ordering Facility: [facility] Address: [address] [place] [address] Performed By: #### K LFRS #### [facility] CLIA [id number] [facility] [place] [address] [place] RBC (Bld) [#/Vol] 3.55 10*6/uL Low 3.90-5.20 [facility] Comment on above: Order Comment: Speci men Type: BLOOD SPECIMEN Ordering Facility: [facility] Address: [address] [place] [address] Performed By: #### K LFRS #### [facility] CLIA [id number] [address] [place] [address] [place] WBC (Bld) [#/Vol] 6.94 10*3/uL Normal 3.70-11.00 [facility] Comment on above: Order Comment: Speci men Type: BLOOD SPECIMEN Ordering Facility: [facility] Address: [address] [place] [address] Performed By: #### K LFRS #### [facility] CLIA [id number] [address] [place] CNOVSPon 11-05-2023 CNOVSP Visit (SP) Office (HEMASA) ----- LASHAUN JOAQUIN ([id number]) 1940 F Date Time Provider Department 11/05/23 1:30 PM PAOLO CASILLAS During your visit today, we recorded the following information about you: Temperature Pulse Respiration Blood pressure 97.5 degrees 57/minute 16/minute 111/40 Weight Height 87.6 kg 1.664 m Paolo Casillas APRN.DRY MAN 11/07/2023 12:22 PM Signed PATIENT NAME: Lashaun [...] 166.4 c (more content not included)... Normal [facility] IMMUNOFIXATION SCREEN, SERUM on 11-05-2023 INTERPRETATION [...] monoclonal gammopathy. Clinical correlation is necessary. Normal [facility] Comment on above: Order Comment: Preet patino Type: BLOOD SPECIMEN Ordering Facility: [facility] Address: [address] [place] [address] Performed By: #### 5 7021-8 #### [facility] CLIA [id number] [address] [place] [address] MPA RESULT A poorly defined reg ion of restricted mobility is present that may represent an M protein. Abnormal No M protein is identified. [facility] Comment on above: Order Comment: Preet patino Type: BLOOD SPECIMEN Ordering Facility: [facility] Address: [address] [place] [address] Performed By: #### 5 7021-8 #### [facility] CLIA [id number] [address] [place] [address] STAFF REVIEW (MPA) Reviewed by Milka Bahena MD Normal [facility] Comment on above: Order Comment: Preet patino Type: BLOOD SPECIMEN Ordering Facility: [facility] Address: [address] Performed By: #### 5 7021-8 #### [facility] CLIA [id number] [address] [place] [address] IMMUNOGLOBULINS GAMon 2023 IgA [Mass/Vol] 72 mg/dL Normal 70-400 [facility] Comment on above: Order Comment: Speci men Type: BLOOD SPECIMEN Ordering Facility: [facility] Address: [address] [place] [address] Performed By: #### 5 7021-8 #### [facility] CLIA [id number] [address] [place] [address] IgG [Mass/Vol] 525 mg/dL Low 700-1600 [facility] Comment on above: Order Comment: Speci men Type: BLOOD SPECIMEN Ordering Facility: [facility] Address: [address] [place] [address] Performed By: #### 5 7021-8 #### [facility] CLIA [id number] [address] [place] [address] IgM [Mass/Vol] 340 mg/dL High 40-230 [facility] Comment on above: Order Comment: Speci men Type: BLOOD SPECIMEN Ordering Facility: [facility] Address: [address] [place] [address] Performed By: #### 5 7021-8 #### [facility] CLIA [id number] [address] [place] [address] KAPPA/BOWLES,FREE,SERon 2023 Immunoglobulin light chains.kappa.free (S) [Mass/Vol] 106.4 mg/L High 3.3-19.4 [facility] Comment on above: Order Comment: Speci men Type: BLOOD SPECIMEN Ordering Facility: [facility] Address: [address] [place] [address] Result Comment: Rare ly, increased serum free light chains levels may not be detected or accurately quantified due to prozone phenomenon or in high viscosity samples using this immunoturbidimetric assay. Correlation with other laboratory results and clinical findings is recommended. The [place] Free Light Chain was performed using the Binding Site Optilite immunoturbidimetric method. Result obtained with different assay methods or kits cannot be used interchangeably. Performed By: #### K LFRS #### [facility] CLIA [id number] [address] [place] [address] [place] Immunoglobulin light chains.kappa/Immunogl obulin light chains.lambda (S) [Mass ratio] 5.29 High 0.26-1.65 [facility] Comment on above: Order Comment: Speci men Type: BLOOD SPECIMEN Ordering Facility: [facility] Address: [address] [place] [address] Performed By: #### K LFRS #### [facility] CLIA [id number] [address] [place] [address] [place] Immunoglobulin light chains.lambda.free [Mass/Vol] 20.1 mg/L Normal 5.7-26.3 [facility] Comment on above: Order Comment: Speci men Type: BLOOD SPECIMEN Ordering Facility: [facility] Address: [address] [place] [address] Result Comment: Rare ly, increased serum free [...] interchangeably. Performed By: #### K LFRS #### [facility] CLIA [id number] [address] [place] [address] [place] PROTEIN ELECTROPHORESIS SERU M WITH BRANDON (P)on 11-05-2023 Albumin [Mass/Vol] 3.79 g/dL Normal 3.43-5.41 [facility] Comment on above: Order Comment: Speci men Type: BLOOD SPECIMEN Ordering Facility: [facility] Address: [address] [place] [address] Performed By: #### L [id number] #### [facility] CLIA [id number] [address] [place] [address] [place] Alpha 1 globulin Elph [Mass/Vol] 0.28 g/dL Normal 0.18-0.43 [facility] Comment on above: Order Comment: Speci men Type: BLOOD SPECIMEN Ordering Facility: [facility] Address: [address] [place] [address] Performed By: #### L [id number] #### [facility] CLIA [id number] [address] [place] [address] [place] Alpha 2 globulin Elph [Mass/Vol] 0.72 g/dL Normal 0.42-0.98 [facility] Comment on above: Order Comment: Speci men Type: BLOOD SPECIMEN Ordering Facility: [facility] Address: [address] [place] [address] Performed By: #### L [id number] #### [facility] CLIA [id number] [address] [place] [address] [place] Beta globulin Elph [Mass/Vol] 0.52 g/dL Low 0.61-1.17 [facility] Comment on above: Order Comment: Speci men Type: BLOOD SPECIMEN Ordering Facility: [facility] Address: [address] [place] [address] Performed By: #### L [id number] #### [facility] CLIA [id number] [address] [place] [address] [place] COMMENT (SERUM PROT ELECTRO) A reflex test for Monoclonal Protein analysis (immunofixation) has been ordered. Normal [facility] Comment on above: Order Comment: Speci men Type: BLOOD SPECIMEN Ordering Facility: [facility] Address: [address] [place] [address] Performed By: #### L [id number] #### [facility] CLIA [id number] [address] [place] [address] [place] Gamma globulin Elph [Mass/Vol] 0.49 g/dL Low 0.53-1.51 [facility] Comment on above: Order Comment: Preet patino Type: BLOOD SPECIMEN Ordering Facility: [facility] Address: [address] [place] [address] Performed By: #### L [id number] #### [facility] CLIA [id number] [facility] STATES OF [facility] INTERPRETATION COMMENT FOR PROTEIN ELECTROPHORESIS Normal [facility] Comment on above: Order Comment: Preet patino Type: BLOOD SPECIMEN Ordering Facility: [facility] Address: [address] [place] [address] Result Comment: The atypical region is relatively poorly defined and may represent an unusual presentation of polyclonal immunoglobulins, but cannot rule out the presence of a low level M protein. If clinically indicated, monoclonal protein analysis and serum free light chain analysis are suggested to evaluate further for monoclonal gammopathy. Performed By: #### L [id number] #### [facility] CLIA [id number] [address] [place] [address] [place] M-PROTEIN LOCATION Normal [facility] Comment on above: Order Comment: Preet patino Type: BLOOD SPECIMEN Ordering Facility: [facility] Address: [address] [place] [address] Result Comment: Not Applicable. Performed By: #### L [id number] #### [facility] CLIA [id number] [address] [place] [address] [place] Protein Fractions [Interp] An atypical region of restricted mobility is identified on protein electrophoresis. Abnormal No definitive M protein is identified on protein electrophor esis. [facility] Comment on above: Order Comment: Preet patino Type: BLOOD SPECIMEN Ordering Facility: [facility] Address: [address] [place] [address] Performed By: #### L [id number] #### [facility] CLIA [id number] [facility] [place] [address] [place] Protein.monoclonal Elph [Mass/Vol] 0.00 g/dL Normal <=0.00 [facility] Comment on above: Order Comment: Speci men Type: BLOOD SPECIMEN Ordering Facility: [facility] Address: [address] [place] [address] Performed By: #### L [id number] #### [facility] CLIA [id number] [address] [place] [address] [place] SPE STAFF REVIEW Reviewed by Milka Bahena MD [facility] Comment on above: Order Comment: Speci men Type: BLOOD SPECIMEN Ordering Facility: [facility] Address: [address] [place] [address] Performed By: #### L [id number] #### [facility] CLIA [id number] [address] [place] [address] [place] Prot SerPl-mCncon 11-05-2023 Protein [Mass/Vol] 5.8 g/dL Low 6.3-8.0 [facility] Comment on above: Order Comment: Speci men Type: BLOOD SPECIMEN Ordering Facility: [facility] Address: [address] [place] [id number] Performed By: #### 5 7021-8 #### [facility] CLIA [id number] [address] [place] [address] Kyung 08-31-2023 GABO Telephone (HEMTSA) ----- LASHAUN JOAQUIN ([id number]) 1940 F Date Time Provider Department 08/31/23 LUIS MCKENZIE During your visit today, we recorded the following information about you: Milka Landry Ma 08/31/2023 4:13 PM Signed Labs for next appointment Milka Houghtlen Ma Allergies As of Date: 08/31/2023 Noted [...] Fully Assessed Reason for Visit: Lab Orders [1688] Primary Visit Diagnosis:Abnormal SPEP [R77.8] Order(s):CBC + DIFF [SQCBCDIF] Order #: [id number] FUTURE BASIC METABOLIC PNL [SQBMP] Order #: [id number] FUTURE PROT ELECT SERUM WITH BRANDON AND INTERP [SQSEPGRX] Order #: [id number] FUTURE MONOCLONAL PROTEIN, SERUM (BLOOD) [SQSERMPA] Order #: [id number] FUTURE Prescriptions as of 08/31/2023 - carvedilol [...] Encounter Status:Closed by LUIS MCKENZIE on 08/31/23 [facility] UA RANDOM W/MICROSCOPICon Clarity (U) CLEAR CLEAR [employer] Other Color (U) DK YELLOW YELLOW [employer] Other Ketones Ql (U) Negative NEGATIVE mg/dL [employer] Other Leukocyte esterase Test strip Ql (U) Negative NEGATIVE [employer] Other pH (U) 6.5 [pH] 5.0-9.0 [employer] Other UA RANDOM W/MICROSCOPIC 0-2 #/HPF Abnormal NONE SEEN #/HPF [employer] Other UA RANDOM W/MICROSCOPIC 5-10 #/HPF Abnormal 0-2 #/HPF [employer] Other UA RANDOM W/MICROSCOPIC see note [employer] Other UA RANDOM W/MICROSCOPIC 1.010 1.005-1.025 [employer] Other UA RANDOM W/MICROSCOPIC Negative NEGATIVE [employer] Other UA RANDOM W/MICROSCOPIC LARGE Abnormal NEGATIVE [employer] Other UA RANDOM W/MICROSCOPIC Positive Abnormal NEGATIVE [employer] Other UA RANDOM W/MICROSCOPIC 1.0 EU/dL 0.2-1.0 EU/dL [employer] Other UA RANDOM W/MICROSCOPIC TRACE #/HPF Abnormal NONE SEEN #/HPF [employer] Other UA RANDOM W/MICROSCOPIC NONE SEEN NONE SEEN [employer] Other UA RANDOM W/MICROSCOPIC RARE #/LPF NONE/RARE #/LPF [employer] Other UA RANDOM W/MICROSCOPIC None Seen #/HPF None Seen #/HPF [employer] Other UA RANDOM W/MICROSCOPIC NONE SEEN #/LPF NONE SEEN #/LPF [employer] Other Urinalysis - DIPSTICKon 06-29 Appearance (U) clear [employer] Other Bilirubin Ql (U) Negative [employer] Other Color (U) light yellow [employer] Other Glucose Ql (U) Negative [employer] Other Hemoglobin Ql (U) +++ [employer] Other Ketones Ql (U) Negative [employer] Other Leukocyte esterase Test strip Ql (U) Negative [employer] Other Nitrite Ql (U) Negative [employer] Other pH (U) 0.2 [pH] [employer] Other Protein Ql (U) trace [employer] Other Specific gravity (U) [Rel density] 1.005 [employer] Other Urobilinogen (U) [Mass/Vol] off chart [employer] Other Urinalysis - DIPSTICK [facility] [employer] Other Kyung 06-06-2023 GABO Telephone ([facility]) ----- LASHAUN JOAQUIN ([id number]) 1940 F Date Time Provider Department 06/06/23 JUAN MANZANARES During your visit today, we recorded the [...] labs. We can further discuss then. Juan Manzanares, YORDAN 06/06/2023 2:12 PM Signed Pt aware of BRM message and agrees to POC. She states [...] Status:Closed by JUAN MANZANARES on 06/06/23 Normal [facility] ESR Westergren method (Bld) [Velocity]on 06-05-2023 ESR (Bld) [Velocity] 119 mm/h High 0 - 20 mm/hr [facility] FERRITIN BLDon 06-05-2023 Ferritin [Mass/Vol] 160.0 ng/mL 14.7 - 205.1 ng/mL [facility] Iron and Iron binding capaci ty panelon 06-05-2023 Iron [Mass/Vol] 45 ug/dL 41 - 186 ug/dL [facility] Iron binding capacity [Mass/Vol] 252 ug/dL 232 - 386 ug/dL [facility] Iron/TIBC [Molar ratio] 17.9 % 15.0 - 57.0 % [facility] Basic metabolic 2000 panelon 06-04-2023 Anion gap [Moles/Vol] 10 mmol/L Normal 9-18 [facility] Comment on above: Order Comment: Speci men Type: BLOOD SPECIMEN Ordering Facility: [facility] Address: [address] [place] [address] Performed By: #### K LFRS #### [facility] CLIA [id number] [address] [place] [address] [place] Calcium [Mass/Vol] 9.2 mg/dL Normal 8.5-10.2 [facility] Comment on above: Order Comment: Speci men Type: BLOOD SPECIMEN Ordering Facility: [facility] Address: [address] [place] [address] Performed By: #### K LFRS #### [facility] CLIA [id number] [address] [place] [address] [place] Chloride [Moles/Vol] 106 mmol/L High 97-105 [facility] Comment on above: Order Comment: Speci men Type: BLOOD SPECIMEN Ordering Facility: [facility] Address: [address] [place] [address] Performed By: #### K LFRS #### [facility] CLIA [id number] [address] [place] [address] [place] CO2 [Moles/Vol] 27 mmol/L Normal 22-30 [facility] Comment on above: Order Comment: Speci men Type: BLOOD SPECIMEN Ordering Facility: [facility] Address: [address] [place] [address] Performed By: #### K LFRS #### [facility] CLIA [id number] [address] [place] [address] [place] Creatinine [Mass/Vol] 1.09 mg/dL High 0.58-0.96 [facility] Comment on above: Order Comment: Speci men Type: BLOOD SPECIMEN Ordering Facility: [facility] Address: [address] [place] [address] Performed By: #### K LFRS #### [facility] CLIA [id number] [address] [place] [address] [place] ESTIMATED GLOMERULAR FILTRATION RATE 51 mL/min/1.73m??? Low >=60 [facility] Comment on above: Order Comment: Speci men Type: BLOOD SPECIMEN Ordering Facility: [facility] Address: [address] [place] [id number] Result Comment: Shoshana mated Glomerular Filtration Rate [...] GFR. Performed By: #### K LFRS #### [facility] CLIA [id number] [facility] [place] [address] [place] Glucose [Mass/Vol] 116 mg/dL High 74-99 [facility] Comment on above: Order Comment: Speci men Type: BLOOD SPECIMEN Ordering Facility: [facility] Address: [address] [place] [address] Result Comment: The [place] [employer] Association (ADA) provides guidance for cutoff [...] Standards of Medical Care in Diabetes 2016, [place] [employer]. Diabetes Care. 2016.39(Suppl 1). Performed By: #### K LFRS #### [facility] CLIA [id number] [address] [place] [address] [place] Potassium [Moles/Vol] 4.3 mmol/L Normal 3.7-5.1 [facility] Comment on above: Order Comment: Speci men Type: BLOOD SPECIMEN Ordering Facility: [facility] Address: [address] [place] [address] Performed By: #### K LFRS #### [facility] CLIA [id number] [facility] [id number] [address] [place] Sodium [Moles/Vol] 143 mmol/L Normal 136-144 [facility] Comment on above: Order Comment: Speci men Type: BLOOD SPECIMEN Ordering Facility: [facility] Address: [address] [place] [address] Performed By: #### K LFRS #### [facility] CLIA [id number] [address] [place] [address] [place] Urea nitrogen [Mass/Vol] 19 mg/dL Normal 7-21 [facility] Comment on above: Order Comment: Speci men Type: BLOOD SPECIMEN Ordering Facility: [facility] Address: [address] [place] [address] Performed By: #### K LFRS #### [facility] CLIA [id number] [address] [place] [address] [place] Anion gap [Moles/Vol] 10 mmol/L 9 - 18 mmol/L [facility] Calcium [Mass/Vol] 9.2 mg/dL 8.5 - 10. 2 mg/dL [facility] Chloride [Moles/Vol] 106 mmol/L High 97 - 10 5 mmol/L [facility] CO2 [Moles/Vol] 27 mmol/L 22 - 30 mmol/L [facility] Creatinine [Mass/Vol] 1.09 mg/dL High 0.58 - 0.96 mg/dL [facility] Estimated Glomerular Filtration Rate 51 mL/min/1.73m Low >=60 mL/min/1.73 m [facility] Glucose [Mass/Vol] 116 mg/dL High 74 - 99 mg/dL [facility] Potassium [Moles/Vol] 4.3 mmol/L 3.7 - 5.1 mmol/L [facility] Sodium [Moles/Vol] 143 mmol/L 136 - 144 mmol/L [facility] Urea nitrogen [Mass/Vol] 19 mg/dL 7 - 21 mg/dL [facility] CBC W Auto Differential pane l (Bld)on 06-04-2023 Basophils (Bld) [#/Vol] 0.04 10*3/uL Normal <0.11 [facility] Comment on above: Order Comment: Speci men Type: BLOOD SPECIMEN Ordering Facility: [facility] Address: [address] [address] Performed By: #### 5 7021-8 #### [facility] CLIA [id number] [address] [place] [address] 38182 Basophils/100 WBC (Bld) 0.8 % Normal [facility] Comment on above: Order Comment: Speci men Type: BLOOD SPECIMEN Ordering Facility: [facility] Address: [address] [address] Performed By: #### 5 7021-8 #### [facility] CLIA [id number] [address] [place] [address] 70155 Differential cell count method Nom (Bld) Auto Normal [facility] Comment on above: Order Comment: Speci men Type: BLOOD SPECIMEN Ordering Facility: [facility] Address: [address] [address] Performed By: #### 5 7021-8 #### [facility] CLIA [id number] [address] [place] [address] 62765 Eosinophils (Bld) [#/Vol] 0.14 10*3/uL Normal <0.46 [facility] Comment on above: Order Comment: Speci men Type: BLOOD SPECIMEN Ordering Facility: [facility] Address: [address] [address] Performed By: #### 5 7021-8 #### [facility] CLIA [id number] [address] [place] [address] 59110 Eosinophils/100 WBC (Bld) 2.9 % Normal [facility] Comment on above: Order Comment: Speci men Type: BLOOD SPECIMEN Ordering Facility: [facility] Address: [address] [address] Performed By: #### 5 7021-8 #### [facility] CLIA [id number] [address] [place] [address] 39662 Erythrocyte distribution width (RBC) [Ratio] 13.6 % Normal 11.5-15.0 [facility] Comment on above: Order Comment: Speci men Type: BLOOD SPECIMEN Ordering Facility: [facility] Address: [address] [address] Performed By: #### 5 7021-8 #### [facility] CLIA [id number] [address] [place] [address] 66092 Hematocrit (Bld) [Volume fraction] 28.8 % Low 36.0-46.0 [facility] Comment on above: Order Comment: Speci men Type: BLOOD SPECIMEN Ordering Facility: [facility] Address: [address] [address] Performed By: #### 5 7021-8 #### [facility] CLIA [id number] [address] [place] [address] 77693 Hemoglobin (Bld) [Mass/Vol] 9.2 g/dL Low 11.5-15.5 [facility] Comment on above: Order Comment: Speci men Type: BLOOD SPECIMEN Ordering Facility: [facility] Address: [address] [address] Performed By: #### 5 7021-8 #### [facility] CLIA [id number] [address] [place] [address] 07792 Immature granulocytes (Bld) [#/Vol] 10*3/uL Normal <0.10 [facility] Comment on above: Order Comment: Speci men Type: BLOOD SPECIMEN Ordering Facility: [facility] Address: [address] [address] Performed By: #### 5 7021-8 #### [facility] CLIA [id number] [address] [place] [address] 20564 Immature granulocytes/100 WBC (Bld) 0.4 % Normal [facility] Comment on above: Order Comment: Speci men Type: BLOOD SPECIMEN Ordering Facility: [facility] Address: [address] [address] Performed By: #### 5 7021-8 #### [facility] CLIA [id number] [address] [place] [address] 78415 Lymphocytes (Bld) [#/Vol] 0.83 10*3/uL Low 1.00-4.00 [facility] Comment on above: Order Comment: Speci men Type: BLOOD SPECIMEN Ordering Facility: [facility] Address: [address] [place] [address] Performed By: #### 5 7021-8 #### [facility] CLIA [id number] [address] [place] [address] 16717 Lymphocytes/100 WBC (Bld) 17.4 % Normal [facility] Comment on above: Order Comment: Speci men Type: BLOOD SPECIMEN Ordering Facility: [facility] Address: [address] [place] [address] Performed By: #### 5 7021-8 #### [facility] CLIA [id number] [address] [place] [address] 73518 MCH (RBC) [Entitic mass] 29.6 pg Normal 26.0-34.0 [facility] Comment on above: Order Comment: Speci men Type: BLOOD SPECIMEN Ordering Facility: [facility] Address: [address] [place] [address] Performed By: #### 5 7021-8 #### [facility] CLIA [id number] [address] [place] [address] 59722 MCHC (RBC) [Mass/Vol] 31.9 g/dL Normal 30.5-36.0 [facility] Comment on above: Order Comment: Speci men Type: BLOOD SPECIMEN Ordering Facility: [facility] Address: [address] [place] [address] Performed By: #### 5 7021-8 #### [facility] CLIA [id number] [address] [place] [address] 45111 MCV (RBC) [Entitic vol] 92.6 fL Normal 80.0-100.0 [facility] Comment on above: Order Comment: Speci men Type: BLOOD SPECIMEN Ordering Facility: [facility] Address: [address] Performed By: #### 5 7021-8 #### [facility] CLIA [id number] [address] [place] [address] 34703 Monocytes (Bld) [#/Vol] 0.40 10*3/uL Normal <0.87 [facility] Comment on above: Order Comment: Speci men Type: BLOOD SPECIMEN Ordering Facility: [facility] Address: [address] [address] Performed By: #### 5 7021-8 #### [facility] CLIA [id number] [address] [place] [address] 81230 Monocytes/100 WBC (Bld) 8.4 % Normal [facility] Comment on above: Order Comment: Speci men Type: BLOOD SPECIMEN Ordering Facility: [facility] Address: [address] [address] Performed By: #### 5 7021-8 #### [facility] CLIA [id number] [address] [place] [address] 94553 Neutrophils (Bld) [#/Vol] 3.35 10*3/uL Normal 1.45-7.50 [facility] Comment on above: Order Comment: Speci men Type: BLOOD SPECIMEN Ordering Facility: [facility] Address: [address] [address] Performed By: #### 5 7021-8 #### [facility] CLIA [id number] [address] [place] [address] 28006 Neutrophils/100 WBC (Bld) 70.1 % Normal [facility] Comment on above: Order Comment: Speci men Type: BLOOD SPECIMEN Ordering Facility: [facility] Address: [address] Performed By: #### 5 7021-8 #### [facility] CLIA [id number] [address] [place] [address] 88946 Nucleated RBC (Bld) [#/Vol] 10*3/uL Normal <0.01 [facility] Comment on above: Order Comment: Speci men Type: BLOOD SPECIMEN Ordering Facility: [facility] Address: [address] [address] Performed By: #### 5 7021-8 #### [facility] CLIA [id number] [address] [place] [address] 59789 Nucleated RBC/100 WBC (Bld) [Ratio] 0.0 /100 WBC Normal [facility] Comment on above: Order Comment: Speci men Type: BLOOD SPECIMEN Ordering Facility: [facility] Address: [address] [address] Performed By: #### 5 7021-8 #### [facility] CLIA [id number] [address] [place] [address] 99688 Platelet mean volume (Bld) [Entitic vol] 10.2 fL Normal 9.0-12.7 [facility] Comment on above: Order Comment: Speci men Type: BLOOD SPECIMEN Ordering Facility: [facility] Address: [address] Performed By: #### 5 7021-8 #### [facility] CLIA [id number] [address] [place] [address] 04021 Platelets (Bld) [#/Vol] 274 10*3/uL Normal 150-400 [facility] Comment on above: Order Comment: Speci men Type: BLOOD SPECIMEN Ordering Facility: [facility] Address: [address] Performed By: #### 5 7021-8 #### [facility] CLIA [id number] [address] [place] [address] 85026 RBC (Bld) [#/Vol] 3.11 10*6/uL Low 3.90-5.20 [facility] Comment on above: Order Comment: Speci men Type: BLOOD SPECIMEN Ordering Facility: [facility] Address: [address] Performed By: #### 5 7021-8 #### [facility] CLIA [id number] [address] [place] [address] WBC (Bld) [#/Vol] 4.78 10*3/uL Normal 3.70-11.00 [facility] Comment on above: Order Comment: Speci men Type: BLOOD SPECIMEN Ordering Facility: [facility] Address: [address] [place] [address] Performed By: #### 5 7021-8 #### [facility] CLIA [id number] [address] [place] [address] Basophils (Bld) [#/Vol] 0.04 10*3/uL <0.11 k/uL [facility] Basophils/100 WBC (Bld) 0.8 % [facility] Differential cell count method Nom (Bld) Auto [facility] Eosinophils (Bld) [#/Vol] 0.14 10*3/uL <0.46 k/uL [facility] Eosinophils/100 WBC (Bld) 2.9 % [facility] Erythrocyte distribution width (RBC) [Ratio] 13.6 % 11.5 - 15.0 % [facility] Hematocrit (Bld) [Volume fraction] 28.8 % Low 36.0 - 46.0 % [facility] Hemoglobin (Bld) [Mass/Vol] 9.2 g/dL Low 11.5 - 15.5 g/dL [facility] Immature granulocytes (Bld) [#/Vol] <0.10 k/uL [facility] Immature granulocytes/100 WBC (Bld) 0.4 % [facility] Lymphocytes (Bld) [#/Vol] 0.83 10*3/uL Low 1.00 - 4.00 k/uL [facility] Lymphocytes/100 WBC (Bld) 17.4 % [facility] MCH (RBC) [Entitic mass] 29.6 pg 26.0 - 34.0 pg [facility] MCHC (RBC) [Mass/Vol] 31.9 g/dL 30.5 - 36.0 g/dL [facility] MCV (RBC) [Entitic vol] 92.6 fL 80.0 - 100.0 fL [facility] Monocytes (Bld) [#/Vol] 0.40 10*3/uL <0.87 k/uL [facility] Monocytes/100 WBC (Bld) 8.4 % [facility] Neutrophils (Bld) [#/Vol] 3.35 10*3/uL 1.45 - 7.50 k/uL [facility] Neutrophils/100 WBC (Bld) 70.1 % [facility] Nucleated RBC (Bld) [#/Vol] <0.01 k/uL [facility] Nucleated RBC/100 WBC (Bld) [Ratio] 0.0 /100 WBC [facility] Platelet mean volume (Bld) [Entitic vol] 10.2 fL 9.0 - 12.7 fL [facility] Platelets (Bld) [#/Vol] 274 10*3/uL 150 - 400 k/uL [facility] RBC (Bld) [#/Vol] 3.11 10*6/uL Low 3.90 - 5.2 0 m/uL [facility] WBC (Bld) [#/Vol] 4.78 10*3/uL 3.70 - 11.00 k/uL [facility] CNOVSPon 06-04-2023 CNOVSP Visit (SP) Office ([place]) ----- LASHAUN JOAQUIN ([id number]) 1940 F Date Time Provider Department 06/04/23 2:00 PM LUIS MCKENZIE During your visit today, we recorded the following information about you: Temperature Pulse Respiration Blood pressure 97.7 degrees 56/minute 18/minute 155/58 Weight 92 kg Luis Mckenzie MD 06/06/2023 6:33 AM Signed PATIENT NAME: Lashaun Joaquin DATE: 06/04/2023 PRIMARY CARE PHYSICIAN: Nathan Hathaway, DO OTHER PHYSICIANS: Dr. Perry Portions of this [...] shortness of breath and was hospitalized at [facility] and treated for suspected pneumonia. Apparently it was later felt she had heart disease, and cardiac catheterization revealed severe coronary artery disease. She subsequently underwent stent placement at [facility]. Apparently her shortness of breath persisted, and [...] EXAM: B (more content not included)... Normal [facility] ESR Westergren method (Bld) [Velocity]on 06-04-2023 ESR (Bld) [Velocity] 119 mm/h High 0-20 [facility] Comment on above: Order Comment: Speci men Type: BLOOD SPECIMEN Ordering Facility: [facility] Address: [address] [place] [address] [place] [address] Performed By: #### 2 4323-8 #### [facility] CLIA [id number] [address] [place] [address] 69806 Ferritin SerPl-mCncon 2022 Ferritin [Mass/Vol] 160.0 ng/mL Normal 14.7-205.1 [facility] Comment on above: Order Comment: Speci men Type: BLOOD SPECIMEN Ordering Facility: [facility] Address: [address] [address] Performed By: #### 5 7021-8 #### [facility] CLIA [id number] [address] [place] [address] 67324 Iron and Iron binding capaci ty panelon 06-04-2023 Iron [Mass/Vol] 45 ug/dL Normal 41-186 [facility] Comment on above: Order Comment: Speci men Type: BLOOD SPECIMEN Ordering Facility: [facility] Address: [address] [address] Performed By: #### 2 4323-8 #### [facility] CLIA [id number] [address] [place] [address] 26894 Iron binding capacity [Mass/Vol] 252 ug/dL Normal 232-386 [facility] Comment on above: Order Comment: Speci men Type: BLOOD SPECIMEN Ordering Facility: [facility] Address: [address] [address] Performed By: #### 2 4323-8 #### [facility] CLIA [id number] [address] [place] [address] 96860 Iron/TIBC [Molar ratio] 17.9 % Normal 15.0-57.0 [facility] Comment on above: Order Comment: Speci men Type: BLOOD SPECIMEN Ordering Facility: [facility] Address: [address] [address] Performed By: #### 2 4323-8 #### [facility] CLIA [id number] [address] [place] [address] 51604 RETIC COUNTon 06-04-2023 Reticulocytes (Bld) [#/Vol] 0.86522 10*3/uL 0.018 - 0.100 M/uL [facility] Retics #on 06-04-2023 Reticulocytes (Bld) [#/Vol] 0.06240 10*3/uL Normal 0.018-0.100 [facility] Comment on above: Order Comment: Speci men Type: BLOOD SPECIMEN Ordering Facility: [facility] Address: [address] [address] Performed By: #### 5 7021-8 #### [facility] CLIA [id number] [address] [place] [address] 49509 Reticulocytes (Bld) [#/Vol]o n 06-04-2023 Reticulocytes/100 RBC (Bld) 2.0 % Normal 0.4-2.0 [facility] Comment on above: Order Comment: Speci men Type: BLOOD SPECIMEN Ordering Facility: [facility] Address: [address] [address] Performed By: #### 5 7021-8 #### [facility] CLIA [id number] [address] [place] [address] 33081 Reticulocytes/100 RBC (Bld) 2.0 % 0.4 - 2.0 % [facility] Basic metabolic 2000 panelon 05-28-2023 Anion gap [Moles/Vol] 8 mmol/L Low 9-18 [facility] Comment on above: Order Comment: Speci men Type: BLOOD SPECIMEN Ordering Facility: [facility] Address: [address] [address] Performed By: #### 2 4323-8 #### [facility] CLIA [id number] [address] [place] [address] 82854 Calcium [Mass/Vol] 9.2 mg/dL Normal 8.5-10.2 [facility] Comment on above: Order Comment: Speci men Type: BLOOD SPECIMEN Ordering Facility: [facility] Address: [address] [address] Performed By: #### 2 4323-8 #### [facility] CLIA [id number] [address] [place] [address] 91742 Chloride [Moles/Vol] 104 mmol/L Normal 97-105 [facility] Comment on above: Order Comment: Speci men Type: BLOOD SPECIMEN Ordering Facility: [facility] Address: [address] [address] Performed By: #### 2 4323-8 #### [facility] CLIA [id number] [address] [place] [address] 69019 CO2 [Moles/Vol] 28 mmol/L Normal 22-30 [facility] Comment on above: Order Comment: Speci men Type: BLOOD SPECIMEN Ordering Facility: [facility] Address: [address] [place] [address] Performed By: #### 2 4323-8 #### [facility] CLIA [id number] [address] [place] [address] 36136 Creatinine [Mass/Vol] 1.18 mg/dL High 0.58-0.96 [facility] Comment on above: Order Comment: Speci men Type: BLOOD SPECIMEN Ordering Facility: [facility] Address: [address] [place] [address] Performed By: #### 2 4323-8 #### [facility] CLIA [id number] [address] [place] [address] 63702 ESTIMATED GLOMERULAR FILTRATION RATE 47 mL/min/1.73m??? Low >=60 [facility] Comment on above: Order Comment: Speci men Type: BLOOD SPECIMEN Ordering Facility: [facility] Address: [address] [place] [address] Result Comment: Shoshana mated Glomerular Filtration Rate [...] GFR. Performed By: #### 2 4323-8 #### [facility] CLIA [id number] [address] [place] [address] 46108 Glucose [Mass/Vol] 127 mg/dL High 74-99 [facility] Comment on above: Order Comment: Speci men Type: BLOOD SPECIMEN Ordering Facility: [facility] Address: [address] [address] Result Comment: The [place] [employer] (ADA) provides guidance for cutoff [...] Standards of Medical Care in Diabetes 2016, [place] [employer]. Diabetes Care. 2016.39(Suppl 1). Performed By: #### 2 4323-8 #### [facility] CLIA [id number] [address] [place] [address] 99272 Potassium [Moles/Vol] 4.4 mmol/L Normal 3.7-5.1 [facility] Comment on above: Order Comment: Speci men Type: BLOOD SPECIMEN Ordering Facility: [facility] Address: [address] [address] Performed By: #### 2 432-8 #### [facility] CLIA [id number] [address] [place] [address] 40380 Sodium [Moles/Vol] 140 mmol/L Normal 136-144 [facility] Comment on above: Order Comment: Speci men Type: BLOOD SPECIMEN Ordering Facility: [facility] Address: [address] [address] Performed By: #### 2 4323-8 #### [facility] CLIA [id number] [address] [place] [address] 23640 Urea nitrogen [Mass/Vol] 23 mg/dL High 7-21 [facility] Comment on above: Order Comment: Speci men Type: BLOOD SPECIMEN Ordering Facility: [facility] Address: [address] [address] Performed By: #### 2 4323-8 #### [facility] CLIA [id number] [address] [place] [address] CBC W Auto Differential pane l (Bld)on 05-28-2023 Basophils (Bld) [#/Vol] 0.03 10*3/uL Normal <0.11 [facility] Comment on above: Order Comment: Speci men Type: BLOOD SPECIMEN Ordering Facility: [facility] Address: [address] [place] [address] Performed By: #### 5 7021-8 #### [facility] CLIA [id number] [address] [place] [address] 25535 Basophils/100 WBC (Bld) 0.6 % Normal [facility] Comment on above: Order Comment: Speci men Type: BLOOD SPECIMEN Ordering Facility: [facility] Address: [address] [place] [address] Performed By: #### 5 7021-8 #### [facility] CLIA [id number] [address] [place] [address] 51461 Differential cell count method Nom (Bld) Auto Normal [facility] Comment on above: Order Comment: Speci men Type: BLOOD SPECIMEN Ordering Facility: [facility] Address: [address] [place] [address] Performed By: #### 5 7021-8 #### [facility] CLIA [id number] [address] [place] [address]234 Eosinophils (Bld) [#/Vol] 0.13 10*3/uL Normal <0.46 [facility] Comment on above: Order Comment: Speci men Type: BLOOD SPECIMEN Ordering Facility: [facility] Address: [address] [place] [address] Performed By: #### 5 7021-8 #### [facility] CLIA [id number] [address] [place] [address] 74166 Eosinophils/100 WBC (Bld) 2.5 % Normal [facility] Comment on above: Order Comment: Speci men Type: BLOOD SPECIMEN Ordering Facility: [facility] Address: [address] [address] Performed By: #### 5 7021-8 #### [facility] CLIA [id number] [address] [place] [address] 31366 Erythrocyte distribution width (RBC) [Ratio] 13.7 % Normal 11.5-15.0 [facility] Comment on above: Order Comment: Speci men Type: BLOOD SPECIMEN Ordering Facility: [facility] Address: [address] [address] Performed By: #### 5 7021-8 #### [facility] CLIA [id number] [address] [place] [address] Hematocrit (Bld) [Volume fraction] 27.9 % Low 36.0-46.0 [facility] Comment on above: Order Comment: Speci men Type: BLOOD SPECIMEN Ordering Facility: [facility] Address: [address] [address] Performed By: #### 5 7021-8 #### [facility] CLIA [id number] [address] [place] [address] 12300 Hemoglobin (Bld) [Mass/Vol] 8.8 g/dL Low 11.5-15.5 [facility] Comment on above: Order Comment: Speci men Type: BLOOD SPECIMEN Ordering Facility: [facility] Address: [address] [address] Performed By: #### 5 7021-8 #### [facility] CLIA [id number] [address] [place] [address]74 Immature granulocytes (Bld) [#/Vol] 10*3/uL Normal <0.10 [facility] Comment on above: Order Comment: Speci men Type: BLOOD SPECIMEN Ordering Facility: [facility] Address: [address] [address] Performed By: #### 5 7021-8 #### [facility] CLIA [id number] [address] [place] [address] Immature granulocytes/100 WBC (Bld) 0.4 % Normal [facility] Comment on above: Order Comment: Speci men Type: BLOOD SPECIMEN Ordering Facility: [facility] Address: [address] [address] Performed By: #### 5 7021-8 #### [facility] CLIA [id number] [address] [place] [address] 23905 Lymphocytes (Bld) [#/Vol] 0.88 10*3/uL Low 1.00-4.00 [facility] Comment on above: Order Comment: Speci men Type: BLOOD SPECIMEN Ordering Facility: [facility] Address: [address] [address] Performed By: #### 5 7021-8 #### [facility] CLIA [id number] [address] [place] [address] 52733 Lymphocytes/100 WBC (Bld) 16.8 % Normal [facility] Comment on above: Order Comment: Speci men Type: BLOOD SPECIMEN Ordering Facility: [facility] Address: [address] [address] Performed By: #### 5 7021-8 #### [facility] CLIA [id number] [address] [place] [address]2363 MCH (RBC) [Entitic mass] 29.1 pg Normal 26.0-34.0 [facility] Comment on above: Order Comment: Speci men Type: BLOOD SPECIMEN Ordering Facility: [facility] Address: [address] Performed By: #### 5 7021-8 #### [facility] CLIA [id number] [address] [place] [address]10 MCHC (RBC) [Mass/Vol] 31.5 g/dL Normal 30.5-36.0 [facility] Comment on above: Order Comment: Speci men Type: BLOOD SPECIMEN Ordering Facility: [facility] Address: [address] Performed By: #### 5 7021-8 #### [facility] CLIA [id number] [address] [place] [address] 13465 MCV (RBC) [Entitic vol] 92.4 fL Normal 80.0-100.0 [facility] Comment on above: Order Comment: Speci men Type: BLOOD SPECIMEN Ordering Facility: [facility] Address: [address] [address] Performed By: #### 5 7021-8 #### [facility] CLIA [id number] [address] [place] [address] 46957 Monocytes (Bld) [#/Vol] 0.43 10*3/uL Normal <0.87 [facility] Comment on above: Order Comment: Speci men Type: BLOOD SPECIMEN Ordering Facility: [facility] Address: [address] [place] [address] Performed By: #### 5 7021-8 #### [facility] CLIA [id number] [address] [place] [id number] Monocytes/100 WBC (Bld) 8.2 % Normal [facility] Comment on above: Order Comment: Speci men Type: BLOOD SPECIMEN Ordering Facility: [facility] Address: [address] [place] [address] Performed By: #### 5 7021-8 #### [facility] CLIA [id number] [address] [place] [id number] Neutrophils (Bld) [#/Vol] 3.76 10*3/uL Normal 1.45-7.50 [facility] Comment on above: Order Comment: Speci men Type: BLOOD SPECIMEN [facility] [place] Address: [address] [place] [address] Performed By: #### 5 7021-8 #### [facility] CLIA [id number] [address] [place] [address] [id number] Neutrophils/100 WBC (Bld) 71.5 % Normal [facility] Comment on above: Order Comment: Speci men Type: BLOOD SPECIMEN Ordering Facility: [facility] Address: [address] [address] Performed By: #### 5 7021-8 #### [facility] CLIA [id number] [address] [place] [address] 11944 Nucleated RBC (Bld) [#/Vol] 10*3/uL Normal <0.01 [facility] Comment on above: Order Comment: Speci men Type: BLOOD SPECIMEN Ordering Facility: [facility] Address: [address] [address] Performed By: #### 5 7021-8 #### [facility] CLIA [id number] [address] [place] [address] 75706 Nucleated RBC/100 WBC (Bld) [Ratio] 0.0 /100 WBC Normal [facility] Comment on above: Order Comment: Speci men Type: BLOOD SPECIMEN Ordering Facility: [facility] Address: [address] [address] Performed By: #### 5 7021-8 #### [facility] CLIA [id number] [address] [place] [address] 70768 Platelet mean volume (Bld) [Entitic vol] 10.2 fL Normal 9.0-12.7 [facility] Comment on above: Order Comment: Speci men Type: BLOOD SPECIMEN Ordering Facility: [facility] Address: [address] [address] Performed By: #### 5 7021-8 #### [facility] CLIA [id number] [address] [place] [address] 95011 Platelets (Bld) [#/Vol] 238 10*3/uL Normal 150-400 [facility] Comment on above: Order Comment: Speci men Type: BLOOD SPECIMEN Ordering Facility: [facility] Address: [address] [address] Performed By: #### 5 7021-8 #### [facility] CLIA [id number] [address] [place] [address] 90928 RBC (Bld) [#/Vol] 3.02 10*6/uL Low 3.90-5.20 [facility] Comment on above: Order Comment: Speci men Type: BLOOD SPECIMEN Ordering Facility: [facility] Address: [address] [place] [address] Performed By: #### 5 7021-8 #### [facility] CLIA [id number] [address] [place] [address] 19025 WBC (Bld) [#/Vol] 5.25 10*3/uL Normal 3.70-11.00 [facility] Comment on above: Order Comment: Speci men Type: BLOOD SPECIMEN Ordering Facility: [facility] Address: [address] [place] [address] Performed By: #### 5 7021-8 #### [facility] CLIA [id number] [address] [place] [address] 21902 IMMUNOFIXATION SCREEN, SERUM on 05-28-2023 MPA RESULT No M protein is identified. Normal No M protein is identified. [facility] Comment on above: Order Comment: Speci men Type: BLOOD SPECIMEN Ordering Facility: [facility] Address: [address] [place] [address] Performed By: #### 5 7021-8 #### [facility] CLIA [id number] [address] [place] [address] 39904 STAFF REVIEW (MPA) Reviewed by Milka Bahena MD [facility] Comment on above: Order Comment: Speci men Type: BLOOD SPECIMEN Ordering Facility: [facility] Address: [address] [place] [address] Performed By: #### 5 7021-8 #### [facility] CLIA [id number] [address] [place] [address] 82719 IMMUNOGLOBULINS GAMon 2022 IgA [Mass/Vol] 77 mg/dL Normal 70-400 [facility] Comment on above: Order Comment: Speci men Type: BLOOD SPECIMEN Ordering Facility: [facility] Address: [address] [place] [address] Performed By: #### K LFRS #### [facility] CLIA [id number] [address] [place] [address] [place] IgG [Mass/Vol] 682 mg/dL Low 700-1600 [facility] Comment on above: Order Comment: Speci men Type: BLOOD SPECIMEN Ordering Facility: [facility] Address: [address] [place] [address] Performed By: #### K LFRS #### [facility] CLIA [id number] [facility] [place] [address] [place] IgM [Mass/Vol] 285 mg/dL High 40-230 [facility] Comment on above: Order Comment: Speci men Type: BLOOD SPECIMEN Ordering Facility: [facility] Address: [address] [place] [address] Performed By: #### K LFRS #### [facility] CLIA [id number] [address] [place] [address] [place] KAPPA/BOWLES,FREE,SERon 2022 Immunoglobulin light chains.kappa.free (S) [Mass/Vol] 111.0 mg/L High 3.3-19.4 [facility] Comment on above: Order Comment: Speci men Type: BLOOD SPECIMEN Ordering Facility: [facility] Address: [address] [place] [address] Result Comment: Rare ly, increased serum free light chains levels may not be detected or accurately quantified due to prozone phenomenon or in high viscosity samples using this immunoturbidimetric assay. Correlation with other laboratory results and clinical findings is recommended. The [place] Free Light Chain was performed using the Binding Site Optilite immunoturbidimetric method. Result obtained with different assay methods or kits cannot be used interchangeably. Performed By: #### 2 4323-8 #### [facility] CLIA [id number] [address] [place] [address] 38434 Immunoglobulin light chains.kappa/Immunogl obulin light chains.lambda (S) [Mass ratio] 4.48 High 0.26-1.65 [facility] Comment on above: Order Comment: Speci men Type: BLOOD SPECIMEN Ordering Facility: [facility] Address: [address] [address] Performed By: #### 2 4323-8 #### [facility] CLIA [id number] [address] [place] [address] 49572 Immunoglobulin light chains.lambda.free [Mass/Vol] 24.8 mg/L Normal 5.7-26.3 [facility] Comment on above: Order Comment: Speci men Type: BLOOD SPECIMEN Ordering Facility: [facility] Address: [address] [address] Result Comment: Rare ly, increased serum free [...] interchangeably. Performed By: #### 2 4323-8 #### [facility] CLIA [id number] [address] [place] [address] 90623 PROTEIN ELECTROPHORESIS SERU M WITH BRANDON (P)on 05-28-2023 Albumin [Mass/Vol] 3.50 g/dL Normal 3.43-5.41 [facility] Comment on above: Order Comment: Speci men Type: BLOOD SPECIMEN Ordering Facility: [facility] Address: [address] [place] [address] Performed By: #### K LFRS #### [facility] CLIA [id number] [address] [facility] [id number] [address] [place] Alpha 1 globulin Elph [Mass/Vol] 0.35 g/dL Normal 0.18-0.43 [facility] Comment on above: Order Comment: Speci men Type: BLOOD SPECIMEN Ordering Facility: [facility] Address: [address] [place] [address] Performed By: #### K LFRS #### [facility] CLIA [id number] [address] [place] [address] [place] Alpha 2 globulin Elph [Mass/Vol] 0.73 g/dL Normal 0.42-0.98 [facility] Comment on above: Order Comment: Speci men Type: BLOOD SPECIMEN Ordering Facility: [facility] Address: [address] [place] [address] Performed By: #### K LFRS #### [facility] CLIA [id number] [address] [place] [address] [place] Beta globulin Elph [Mass/Vol] 0.60 g/dL Low 0.61-1.17 [facility] Comment on above: Order Comment: Speci men Type: BLOOD SPECIMEN Ordering Facility: [facility] Address: [address] [place] [address] Performed By: #### K LFRS #### [facility] CLIA [id number] [address] [place] [address] [place] COMMENT (SERUM PROT ELECTRO) Monoclonal Protein analysis (immunofixation) is not indicated. Normal [facility] Comment on above: Order Comment: Speci men Type: BLOOD SPECIMEN Ordering Facility: [facility] Address: [address] [place] [address] Performed By: #### K LFRS #### [facility] CLIA [id number] [address] [address] [place] Gamma globulin Elph [Mass/Vol] 0.72 g/dL Normal 0.53-1.51 [facility] Comment on above: Order Comment: Speci men Type: BLOOD SPECIMEN Ordering Facility: [facility] Address: [address] [place] [address] Performed By: #### K LFRS #### [facility] CLIA [id number] [facility] [place] [address] [place] M-PROTEIN LOCATION Normal [facility] Comment on above: Order Comment: Speci men Type: BLOOD SPECIMEN Ordering Facility: [facility] Address: [address] [place] [address] Result Comment: Not Applicable. Performed By: #### K LFRS #### [facility] CLIA [id number] [address] [place] [address] [place] Protein Fractions [Interp] No definitive M protein is identified on protein electrophoresis. Normal No definitive M protein is identified on protein electrophor esis. [facility] Comment on above: Order Comment: Speci men Type: BLOOD SPECIMEN Ordering Facility: [facility] Address: [address] [place] [address] Performed By: #### K LFRS #### [facility] CLIA [id number] [address] [place] [address] [place] Protein.monoclonal Elph [Mass/Vol] 0.00 g/dL Normal <=0.00 [facility] Comment on above: Order Comment: Speci men Type: BLOOD SPECIMEN Ordering Facility: [facility] Address: [address] [place] [address] Performed By: #### K LFRS #### [facility] CLIA [id number] [address] [place] [address] [place] SPE STAFF REVIEW Reviewed by Milka Bahena MD [facility] Comment on above: Order Comment: Speci men Type: BLOOD SPECIMEN Ordering Facility: [facility] Address: [address] [place] [address] Performed By: #### K LFRS #### [facility] CLIA [id number] [facility] [place] [address] [place] Prot SerPl-mCncon 05-28-2023 Protein [Mass/Vol] 5.9 g/dL Low 6.3-8.0 [facility] Comment on above: Order Comment: Speci men Type: BLOOD SPECIMEN Ordering Facility: [facility] Address: [address] [place] [address] Performed By: #### K LFRS #### [facility] CLIA [id number] [address] [place] [address] [place] Basophils Auto (Bld) [#/Vol] Ordered By: Lj Ryan on 05-18-2023 Basophils (Bld) [#/Vol] 0.0 10*3/uL 0.0-0.2 [facility] Basophils/100 WBC Auto (Bld) Ordered By: Lj Ryan on 05-18-2023 Basophils/100 WBC (Bld) 0.7 % . [facility] Calcium [Mass/volume] in Ser um or PlasmaOrdered By: Lj Ryan on 05-18-2023 Calcium [Mass/Vol] 8.9 mg/dL 8.6-10.3 [facility] Carbon dioxide, total [Moles /volume] in Serum or PlasmaOrdered By: Lj Ryan on 05-18-2023 CO2 [Moles/Vol] 30.5 mmol/L 21.0-31.0 [facility] Chloride [Moles/volume] in S [place] or PlasmaOrdered By: Lj Ryan on 05-18-2023 Chloride [Moles/Vol] 103 mmol/L 98-107 [facility] Creatinine [Mass/volume] in Serum or PlasmaOrdered By: Lj Ryan on 05-18-2023 Creatinine [Mass/Vol] 1.37 mg/dL 0.60-1.[address] [facility] Eosinophils Auto (Bld) [#/Vo l]Ordered By: Lj Ryan on 05-18-2023 Eosinophils (Bld) [#/Vol] 0.1 10*3/uL 0.0-0.45 [facility] Eosinophils/100 WBC Auto (Bl d)Ordered By: Lj Ryan on 05-18-2023 Eosinophils/100 WBC (Bld) 1.9 % . [facility] Erythrocyte distribution wid th Auto (RBC) [Ratio]Ordered By: Lj Ryan on 05-18-2023 Erythrocyte distribution width (RBC) [Ratio] 14.1 % 11.9-15.3 [facility] Glucose [Mass/volume] in Ser um or PlasmaOrdered By: Lj Ryan on 05-18-2023 Glucose [Mass/Vol] 94 mg/dL 70-100 [facility] Comment on above: ADA recommended refe rence rangeRandom Glucose Reference Range is dependent on time and content of last meal. Glucose of more than 200 mg/dL in a nonstressed, ambulatory subject supports the diagnosis of Diabetes Mellitus. Hematocrit Auto (Bld) [Volum e fraction]Ordered By: Lj Ryan on 05-18-2023 Hematocrit (Bld) [Volume fraction] 28.2 % 34.0-46.4 [facility] Hemoglobin [Mass/volume] in BloodOrdered By: Lj Ryan on 05-18-2023 Hemoglobin (Bld) [Mass/Vol] 9.7 g/dL 11.8-15.4 [facility] Leukocytes [#/volume] correc miguel for nucleated erythrocytes in Blood by Automated counOrdered By: Lj Ryan on 05-18-2023 WBC corrected for nucl RBC Auto (Bld) [#/Vol] 6.0 10*3/uL 3.8-11.6 [facility] Lymphocytes Auto (Bld) [#/Vo l]Ordered By: Lj Ryan on 05-18-2023 Lymphocytes (Bld) [#/Vol] 0.9 10*3/uL 1.00-4.8 [facility] Lymphocytes/100 WBC Auto (Bl d)Ordered By: Lj Ryan on 05-18-2023 Lymphocytes/100 WBC (Bld) 15.1 % . [facility] MCH Auto (RBC) [Entitic mass ]Ordered By: Lj Ryan on 05-18-2023 MCH (RBC) [Entitic mass] 30.2 pg 24.7-34.3 [facility] MCHC Auto (RBC) [Mass/Vol]Or dered By: Lj Ryan on 05-18-2023 MCHC (RBC) [Mass/Vol] 34.4 g/dL 32.0-35.[address] [facility] MCV Auto (RBC) [Entitic vol] Ordered By: Lj Ryan on 05-18-2023 MCV (RBC) [Entitic vol] 87.7 fL 80-100 [facility] Magnesium [Mass/volume] in S courtney or PlasmaOrdered By: Lj Ryan on 05-18-2023 Magnesium [Mass/Vol] 2.1 mg/dL 1.9-2.7 [facility] Monocytes Auto (Bld) [#/Vol] Ordered By: Lj Ryan on 05-18-2023 Monocytes (Bld) [#/Vol] 0.5 10*3/uL 0.0-0.8 [facility] Monocytes/100 WBC Auto (Bld) Ordered By: Lj Ryan on 05-18-2023 Monocytes/100 WBC (Bld) 8.7 % . [facility] Neutrophils Auto (Bld) [#/Vo l]Ordered By: Lj Ryan on 05-18-2023 Neutrophils (Bld) [#/Vol] 4.4 10*3/uL 1.8-7.7 [facility] Neutrophils/100 WBC Auto (Bl d)Ordered By: Lj Ryan on 05-18-2023 Neutrophils/100 WBC (Bld) 73.6 % . [facility] No Panel InformationOrdered By: Lj Ryan on 05-18-2023 Estimated GFR (CKD-EPI) 39.034 mL/Min [facility] Creatinine Clearance (Chem 38.04 [facility] Nucleated erythrocytes [Pres ence] in Blood by Automated countOrdered By: Lj Ryan on 05-18-2023 Nucleated RBC Auto Ql (Bld) 0.1 /100{WBC} 0-0.5 [facility] Phosphate [Mass/volume] in S courtney or PlasmaOrdered By: Lj Ryan on 05-18-2023 Phosphate [Mass/Vol] 5.3 mg/dL 3.7-7.2 [facility] Platelet mean volume Auto (B ld) [Entitic vol]Ordered By: Lj Ryan on 05-18-2023 Platelet mean volume (Bld) [Entitic vol] 7.8 fL 6.3-10.7 [facility] Platelets Auto (Bld) [#/Vol] Ordered By: Lj Ryan on 05-18-2023 Platelets (Bld) [#/Vol] 314 10*3/uL 150-450 [facility] Potassium [Moles/volume] in Serum or PlasmaOrdered By: Lj Ryan on 05-18-2023 Potassium [Moles/Vol] 4.0 mmol/L 3.5-5.[address] [facility] RBC Auto (Bld) [#/Vol]Ordere d By: Lj Ryan on 05-18-2023 RBC (Bld) [#/Vol] 3.21 10*6/uL 3.60-5.00 [facility] Serum or plasma anion gap de terminationOrdered By: Lj Ryan on 05-18-2023 Anion gap [Moles/Vol] 12.5 mmol/L 6.0-15.0 [facility] Sodium [Moles/volume] in Ser um or PlasmaOrdered By: Lj Ryan on 05-18-2023 Sodium [Moles/Vol] 142 mmol/L 136-145 [facility] Urea nitrogen [Mass/volume] in Serum or PlasmaOrdered By: Lj Ryan on 05-18-2023 Urea nitrogen [Mass/Vol] 21 mg/dL 7-25 [facility] WBC Auto (Bld) [#/Vol]Ordere d By: Lj Ryan on 05-18-2023 WBC (Bld) [#/Vol] 6.0 10*3/uL 3.8-11.6 [facility] Alanine aminotransferase [En zymatic activity/volume] in Serum or PlasmaOrdered By: Fernando Ch on 05-17-2023 ALT [Catalytic activity/Vol] 14 U/L 7-52 [facility] Albumin [Mass/volume] in Ser um or Plasma by Bromocresol green (BCG) dye binding methoOrdered By: Fernando Ch on 05-17-2023 Albumin BCG dye [Mass/Vol] 4.0 g/dL 3.5-5.7 [facility] Alkaline phosphatase [Enzyma tic activity/volume] in Serum or PlasmaOrdered By: Fernando Ch on 05-17-2023 ALP [Catalytic activity/Vol] 44 U/L 34-104 [facility] Aspartate aminotransferase [ Enzymatic activity/volume] in Serum or PlasmaOrdered By: Fernando Ch on 05-17-2023 AST [Catalytic activity/Vol] 16 U/L 13-39 [facility] Bilirubin.total [Mass/volume ] in Serum or PlasmaOrdered By: Fernando Ch on 05-17-2023 Bilirubin [Mass/Vol] 0.7 mg/dL 0.3-1.0 [facility] Creatine kinase [Enzymatic a ctivity/volume] in Serum or PlasmaOrdered By: Fernando Ch on 05-17-2023 CK [Catalytic activity/Vol] 49 U/L 30-223 [facility] Globulin Calc (S) [Mass/Vol] Ordered By: Fernando Ch on 05-17-2023 Globulin (S) [Mass/Vol] 2.9 g/dL [facility] Laboratory - CoagulationOrde red By: Fernando Ch on 05-17-2023 PT Coag (PPP) [Time] 12.5 s 9.0-12.9 [facility] Monocyte distribution width [Entitic volume] in Blood by AutomatedOrdered By: Fernando Ch on 05-17-2023 Monocyte distribution width Auto (Bld) [Entitic vol] 22.37 % 0.00-20.00 [facility] Comment on above: For adults in ED, MD W > 20.0 may be associated with a higher risk of sepsis during the first 12 hrs of hospital admission Natriuretic peptide B [Mass/ Vol]Ordered By: Fernando Ch on 05-17-2023 Natriuretic peptide B (Bld) [Mass/Vol] 450.0 pg/mL 5-100 [facility] Platelet poor plasma interna tional normalized ratio (INR) by coagulation assay (relatOrdered By: Fernando Ch on 05-17-2023 INR Coag (PPP) [Relative time] 1.1 {INR} [facility] Comment on above: INR Therapeutic Rang e [...] [Mass/volume] in Ser um or PlasmaOrdered By: Fernando Ch on 05-17-2023 Protein [Mass/Vol] 6.9 g/dL 6.4-8.9 [facility] Serum or plasma albumin/glob ulin mass ratioOrdered By: Fernando Ch on 05-17-2023 Albumin/Globulin [Mass ratio] 1.4 {ratio} [facility] Troponin I.cardiac [Mass/vol ume] in Serum or Plasma by Detection limit <= 0.01 ng/Ordered By: Fernando Ch on 05-17-2023 Troponin I.cardiac DL <= 0.01 ng/mL [Mass/Vol] 10.2 pg/mL 0.0-15.0 [facility] Activated partial thrombopla stin time (aPTT) in platelet poor plasma by coagulation aOrdered By: Jonna Perry on 03-08-2023 aPTT Coag (PPP) [Time] 32.0 s 25.1-36.5 [facility] Band form neutrophils/100 WB C Manual cnt (Bld)Ordered By: Jonna Perry on 03-08-2023 Band form neutrophils/100 WBC (Bld) 4 % 0-5 [facility] Basophils Auto (Bld) [#/Vol] Ordered By: Jonna Perry on 03-08-2023 Basophils (Bld) [#/Vol] N/A [facility] Basophils/100 WBC Auto (Bld) Ordered By: Jonna Perry on 03-08-2023 Basophils/100 WBC (Bld) N/A [facility] Basophils/100 WBC Manual cnt (Bld)Ordered By: Jonna Perry on 03-08-2023 Basophils/100 WBC (Bld) 0 % 0-2 [facility] Carbon dioxide, total [Moles /volume] in Serum or PlasmaOrdered By: Jonna Perry on 03-08-2023 CO2 [Moles/Vol] 33.1 mmol/L 21.0-31.0 [facility] Chloride [Moles/volume] in S courtney or PlasmaOrdered By: Jonna Perry on 03-08-2023 Chloride [Moles/Vol] 104 mmol/L 98-107 [facility] Cholesterol [Mass/volume] in Serum or PlasmaOrdered By: Jonna Perry on 03-08-2023 Cholesterol [Mass/Vol] 151 mg/dL 140-200 [facility] Comment on above: Chol less than 200 m g/dl low riskChol 201-239 mg/dl borderline riskChol 240 mg/dl and greater high risk Cholesterol in LDL Calc [Mas s/Vol]Ordered By: Jonna Perry on 03-08-2023 Cholesterol in LDL [Mass/Vol] 100 mg/dL 0-100 [facility] Comment on above: LDL ATP III CLASSIFI CATIONLDL less than 100 mg/dL OptimalLDL 100-129 mg/dL Near or above optimalLDL 130-159 mg/dL Borderline highLDL 160-189 mg/dL HighLDL greater than 189 mg/dL Very high Cholesterol in VLDL Calc [Ma ss/Vol]Ordered By: Jonna Perry on 03-08-2023 Cholesterol in VLDL [Mass/Vol] 13 mg/dL [facility] Creatinine [Mass/volume] in Serum or PlasmaOrdered By: Jonna Perry on 03-08-2023 Creatinine [Mass/Vol] 1.14 mg/dL 0.60-1.[address] [facility] Eosinophils Auto (Bld) [#/Vo l]Ordered By: Jonna Perry on 03-08-2023 Eosinophils (Bld) [#/Vol] N/A [facility] Eosinophils/100 WBC Auto (Bl d)Ordered By: Jonna Perry on 03-08-2023 Eosinophils/100 WBC (Bld) N/A [facility] Eosinophils/100 WBC Manual c nt (Bld)Ordered By: Jonna Perry on 03-08-2023 Eosinophils/100 WBC (Bld) 2 % 1-3 [facility] Erythrocyte distribution wid th Auto (RBC) [Ratio]Ordered By: Jonna Perry on 03-08-2023 Erythrocyte distribution width (RBC) [Ratio] 14.1 % 11.9-15.3 [facility] Hematocrit Auto (Bld) [Volum e fraction]Ordered By: Jonna Perry on 03-08-2023 Hematocrit (Bld) [Volume fraction] 30.7 % 34.0-46.4 [facility] Hemoglobin [Mass/volume] in BloodOrdered By: Jonna Perry on 03-08-2023 Hemoglobin (Bld) [Mass/Vol] 10.3 g/dL 11.8-15.4 [facility] Laboratory - Chemistry and C hemistry - challengeon 03-08-2023 Cholesterol [Mass/Vol] 151\S\151 Normal 140-200 [facility] DO Work Phone: Comment on above: Chol less than 200 m g/dl low risk Chol 201-239 mg/dl borderline risk Chol 240 mg/dl and greater high risk Cholesterol in LDL [Mass/Vol] 100\S\100 Normal 0-[address] [facility] DO Work Phone: Comment on above: LDL ATP III CLASSIFI CATION LDL less than 100 mg/dL Optimal LDL 100-129 mg/dL Near or above optimal LDL 130-159 mg/dL Borderline high LDL 160-189 mg/dL High LDL greater than 189 mg/dL Very high Laboratory - CoagulationOrde red By: Jonna Perry on 03-08-2023 PT Coag (PPP) [Time] 12.2 s 9.0-12.9 [facility] Leukocytes [#/volume] correc miguel for nucleated erythrocytes in Blood by Automated counOrdered By: Jonna Perry on 03-08-2023 WBC corrected for nucl RBC Auto (Bld) [#/Vol] 6.2 10*3/uL 3.8-11.6 [facility] Lymphocytes Auto (Bld) [#/Vo l]Ordered By: Jonna Perry on 03-08-2023 Lymphocytes (Bld) [#/Vol] N/A [facility] Lymphocytes/100 WBC Auto (Bl d)Ordered By: Jonna Perry on 03-08-2023 Lymphocytes/100 WBC (Bld) N/A [facility] Lymphocytes/100 WBC Manual c nt (Bld)Ordered By: Jonna Perry on 03-08-2023 Lymphocytes/100 WBC (Bld) 16 % 18-42 [facility] MCH Auto (RBC) [Entitic mass ]Ordered By: Jonna Perry on 03-08-2023 MCH (RBC) [Entitic mass] 29.0 pg 24.7-34.3 [facility] MCHC Auto (RBC) [Mass/Vol]Or dered By: Jonna Perry on 03-08-2023 MCHC (RBC) [Mass/Vol] 33.6 g/dL 32.0-35.[address] [facility] MCV Auto (RBC) [Entitic vol] Ordered By: Jonna Perry on 03-08-2023 MCV (RBC) [Entitic vol] 86.2 fL 80-100 [facility] Metamyelocytes/100 WBC Manua l cnt (Bld)Ordered By: Jonna Perry on 03-08-2023 Metamyelocytes/100 WBC (Bld) 1 % 0-0 [facility] Monocytes Auto (Bld) [#/Vol] Ordered By: Jonna Perry on 03-08-2023 Monocytes (Bld) [#/Vol] N/A [facility] Monocytes/100 WBC Auto (Bld) Ordered By: Jonna Perry on 03-08-2023 Monocytes/100 WBC (Bld) N/A [facility] Monocytes/100 WBC Manual cnt (Bld)Ordered By: Jonna Perry on 03-08-2023 Monocytes/100 WBC (Bld) 3 % 2-11 [facility] Neutrophils Auto (Bld) [#/Vo l]Ordered By: Jonna Perry on 03-08-2023 Neutrophils (Bld) [#/Vol] N/A [facility] Neutrophils/100 WBC Auto (Bl d)Ordered By: Jonna Perry on 03-08-2023 Neutrophils/100 WBC (Bld) N/A [facility] No Panel InformationOrdered By: Jonna Perry on 03-08-2023 Estimated GFR (CKD-EPI) 48.665 mL/Min [facility] Creatinine Clearance (Chem N/A [facility] No Panel Informationon 03-08 32.0\S\32.0 Normal 25.1-36.5 -[facility] DO Work Phone: Comment on above: PERFORMED BY:[id number] [place] [id number] MEDICAL DIRECTORJAMAAL [place] M.D. 1.1\S\1.1 Normal [facility] [address] DO Work Phone: [phone] Comment on above: INR Therapeutic Rang e [...] valves: 3 - 4.5 12.2\S\12.2 Normal 9.0-12.9 [facility] DO Work Phone: [phone] 9.0\S\9.0 Normal 6.3-10.7 [facility] DO Work Phone: [phone] 33.1\S\33.1 above high threshold 21.0-31.0 [facility] DO Work Phone: [phone] 104\S\104 Normal 98-107 [facility] [address] DO Work Phone: [phone] 5.1\S\5.1 Normal 3.5-5.1 [facility] DO Work Phone: [phone] 141\S\141 Normal 136-145 [facility] [facility] DO Work Phone: [phone] 21\S\21 Normal 7-25 [facility] DO Work Phone: [phone] 48.665\S\48.665 Normal [facility] DO Work Phone: [phone] 1.14\S\1.14 Normal 0.60-1.20 [facility] DO Work Phone: [phone] 4.0\S\4.0 Normal <5.0 [facility] DO Work Phone: [phone] Comment on above: PERFORMED BY:[id number] [place], [place] [id number] MEDICAL DIRECTORJAMAAL MO M.D. 13\S\13 Normal [facility] DO Work Phone: [phone] 67\S\67 Normal 0-149 [facility] DO Work Phone: Comment on above: TRIG ATP III CLASSIF ICATION TRIG less than 150 mg/dL Normal TRIG 150-199 mg/dL Borderline high TRIG 200-500 mg/dL High TRIG greater than 500 mg/dL Very high Standard traceable to the Center for Disease Conrtrol and Prevention (CDC) test method. 38\S\38 Normal 35-85 [facility] 250 DO Work Phone: Comment on above: HDL CHOL ATP-III CLA SSIFICATION Cardiovascular Risk HDL > or equal to 60 mg/dL LOW HDL < 40 mg/dL HIGH 74\S\74 above high threshold 50-70 [facility] [place] 250 DO Work Phone: [phone] 276\S\276 Normal 150-450 [facility] DO Work Phone: [phone] 14.1\S\14.1 Normal 11.9-15.3 [facility]L y 250 DO Work Phone: [phone] 33.6\S\33.6 Normal 32.0-35.0 [facility] 250 DO Work Phone: [phone] 29.0\S\29.0 Normal 24.7-34.3 [facility] DO Work Phone: [phone] 1\S\1 above high threshold 0-0 [facility] DO Work Phone: [phone] 0\S\0 Normal 0-2 [facility] 250 DO Work Phone: [phone] 2\S\2 Normal 1-3 [facility] DO Work Phone: [phone] 3\S\3 Normal 2-11 [facility] DO Work Phone: [phone] 16\S\16 below low threshold 18-42 [facility] DO Work Phone: [phone] 4\S\4 Normal 0-5 [facility] DO Work Phone: [phone] Slight Normal [facility] DO Work Phone: [phone] Comment on above: PERFORMED BY:[place] [id number] [place], [place] [phone] MEDICAL DIRECTORJAMAAL MO M.D. Normal Normal Normal [facility] 250 DO Work Phone: [phone] 86.2\S\86.2 Normal 80-100 [facility] 250 DO Work Phone: [phone] 30.7\S\30.7 below low threshold 34.0-46.4 [facility] 250 DO Work Phone: [phone] 10.3\S\10.3 below low threshold 11.8-15.4 [facility] 250 DO Work Phone: [phone] 3.56\S\3.56 below low threshold 3.60-5.00 [facility] DO Work Phone: [phone] 8.6\S\8.6 Normal 3.8-11.6 [facility] 250 DO Work Phone: [phone] 6.2\S\6.2 Normal 3.8-11.6 [facility] 250 DO Work Phone: [phone] Nucleated erythrocytes [Pres ence] in Blood by Automated countOrdered By: Jonna Perry on 03-08-2023 Nucleated RBC Auto Ql (Bld) N/A [facility] Ovalocyte detectionOrdered B y: Jonan Perry on 03-08-2023 Ovalocytes LM Ql (Bld) Slight [facility] Platelet adequacy [Presence] in Blood by Light microscopyOrdered By: Jonna Perry on 03-08-2023 Platelets LM Ql (Bld) Normal Normal [facility] Platelet mean volume Auto (B ld) [Entitic vol]Ordered By: Jonna Perry on 03-08-2023 Platelet mean volume (Bld) [Entitic vol] 9.0 fL 6.3-10.7 [facility] Platelet morphology finding [Identifier] in BloodOrdered By: Jonna Perry on 03-08-2023 Platelet morphology finding Nom (Bld) N/A [facility] Platelet poor plasma interna tional normalized ratio (INR) by coagulation assay (relatOrdered By: Jonna Perry on 03-08-2023 INR Coag (PPP) [Relative time] 1.1 {INR} [facility] Comment on above: INR Therapeutic Rang e [...] 03-08-2023 Platelets (Bld) [#/Vol] 276 10*3/uL 150-450 [facility] Platelets Large [Presence] i n Blood by Light microscopyOrdered By: Jonna Perry on 03-08-2023 Platelets Large LM Ql (Bld) Slight [facility] Poikilocytosis [Presence] in Blood by Light microscopyOrdered By: Jonna Perry on 03-08-2023 Poikilocytosis LM Ql (Bld) [facility] Potassium [Moles/volume] in Serum or PlasmaOrdered By: Jonna Perry on 03-08-2023 Potassium [Moles/Vol] 5.1 mmol/L 3.5-5.[address] [facility] RBC Auto (Bld) [#/Vol]Ordere d By: Jonna Perry on 05-11-2023 RBC (Bld) [#/Vol] 3.56 10*6/uL 3.60-5.00 [facility] RBC morphologyOrdered By: Jonna Perry on 03-08-2023 RBC morphology finding Nom (Bld) N/A [facility] Segmented neutrophils/100 WB C Manual cnt (Bld)Ordered By: Jonna Perry on 03-08-2023 Segmented neutrophils/100 WBC (Bld) 74 % 50-70 [facility] Serum or plasma anion gap de terminationOrdered By: Jonna Perry on 03-08-2023 Anion gap [Moles/Vol] 9.0 mmol/L 6.0-15.[address] [facility] Serum or plasma high density lipoprotein (HDL) cholesterol measurementOrdered By: Jonna Perry on 03-08-2023 Cholesterol in HDL [Mass/Vol] 38 mg/dL 35-85 [facility] Comment on above: HDL CHOL ATP-III CLA SSIFICATION Cardiovascular RiskHDL > or equal to 60 mg/dL LOWHDL < 40 mg/dL HIGH Serum or plasma total choles terol/high density lipoprotein (HDL) cholesterol mass ratOrdered By: Jonna Perry on 03-08-2023 Cholesterol.total/Cho lesterol in HDL [Mass ratio] 4.0 {ratio} <5.0 [facility] Sodium [Moles/volume] in Ser um or PlasmaOrdered By: Jonna Perry on 03-08-2023 Sodium [Moles/Vol] 141 mmol/L 136-145 [facility] Triglyceride [Mass/volume] i n Serum or PlasmaOrdered By: Jonna Perry on 03-08-2023 Triglyceride [Mass/Vol] 67 mg/dL 0-149 [facility] Comment on above: TRIG ATP III CLASSIF ICATIONTRIG less than 150 mg/dL NormalTRIG 150-199 mg/dL Borderline highTRIG 200-500 mg/dL High TRIG greater than 500 mg/dL Very highStandard traceable to the Center for Disease Conrtrol and Prevention (CDC) test method. Urea nitrogen [Mass/volume] in Serum or PlasmaOrdered By: Jonna Perry on 03-08-2023 Urea nitrogen [Mass/Vol] 21 mg/dL 7-25 [facility] WBC Auto (Bld) [#/Vol]Ordere d By: Jonna Perry on 03-08-2023 WBC (Bld) [#/Vol] 8.6 10*3/uL 3.8-11.6 [facility] Office Visit (Cardiology)on 03-07-2023 Follow-up [...] associated with accelerated hypertension, was admitted to [facility] briefly, diuresed approximately 14 pounds with diuretics. [...] negative for complaint. Vitals Vital Signs Recorded: 07Mar2023 10:14AMRecorded: [id number] 10:04AM [id number], RUE, [id number] (more content not included)... Normal [employer] Tobacco Screening.on 023 Adult depression screening assessment No [facility] 250 DO Work Phone: Fall risk assessment a) No falls within the last year [facility] 250 DO Work Phone: Tobacco use status CP b) No [facility] DO Work Phone: CBC AUTO DIFFon 03-01-2023 BASO # 0.0 103/ul Normal 0.0-0.1 [facility] Comment on above: Performed By: #### C BC #### [facility] [address] [address] [address] Jose David Shanks Basophils/100 WBC (Bld) 0.5 % Normal 0.2-2.0 [facility] Comment on above: Performed By: #### C BC #### [facility] [address] [address] [address] Jose David Shanks EO # 0.1 103/ul Normal 0.0-0.7 [facility] Comment on above: Performed By: #### C BC #### [facility] [address] [address] [address] Jose David Shanks Eosinophils/100 WBC (Bld) 1.2 % Normal 0.9-7.0 [facility] Comment on above: Performed By: #### C BC #### [facility] [address] [place] [address] Dr. Jose David Shanks Erythrocyte distribution width (RBC) [Ratio] 13.2 % Normal 11.0-15.0 [facility] Comment on above: Performed By: #### C BC #### [facility] [address] [address] [address] Jose David Shanks Hematocrit (Bld) [Volume fraction] 33.9 % Critically low 36.0-48.0 [facility] Comment on above: Performed By: #### C BC #### [facility] [address] [place] [address] Dr. Jose David Shanks Hemoglobin (Bld) [Mass/Vol] 11.0 g/dL Critically low 12.0-16.0 [facility] Comment on above: Performed By: #### C BC #### [facility] [address] [place] [address] Dr. Jose David Shanks IG # 0.03 10e3/ul Normal 0.00-0.03 [facility] Comment on above: Performed By: #### C BC #### [facility] [address] [place] [address] Dr. Jose David Shanks IG % 0.5 % Normal 0.0-0.5 [facility] Comment on above: Performed By: #### C BC #### [facility] [address] [place] [address] Dr. Jose David Shanks LYMPH # 0.8 103/ul Critically low 1.2-3.8 [facility] Comment on above: Performed By: #### C BC #### [facility] [address] [place] [address] Dr. Jose David Shanks Lymphocytes/100 WBC (Bld) 13.7 % Critically low 20.5-60.0 [facility] Comment on above: Performed By: #### C BC #### [facility] [address] [place] [address] Dr. Jose David Shanks MANUAL DIFF REQ NO Normal [facility] Comment on above: Performed By: #### C BC #### [facility] [address] [place] [address] Dr. Jose David Shanks MCH (RBC) [Entitic mass] 28.9 pg Normal 26.7-34.0 [facility] Comment on above: Performed By: #### C BC #### [facility] [address] [address] [address] Jose David Shanks MCHC (RBC) [Mass/Vol] 32.4 g/dL Normal 29.9-35.2 [facility] Comment on above: Performed By: #### C BC #### [facility] [address] [place] [address] Dr. Jose David Shanks MCV (RBC) [Entitic vol] 89.0 fL Normal 81.0-99.0 [facility] Comment on above: Performed By: #### C BC #### [facility] [address] [place] [address] Dr. Jose David Shanks MONO # 0.5 103/ul Normal 0.3-0.8 [facility] Comment on above: Performed By: #### C BC #### [facility] [address] [place] [address] Dr. Jose David Shanks Monocytes/100 WBC (Bld) 8.2 % Normal 1.7-12.0 [facility] Comment on above: Performed By: #### C BC #### [facility] [address] [place] [address] Dr. Jose David Shanks NEUT # 4.3 103/ul Normal 1.4-6.5 [facility] Comment on above: Performed By: #### C BC #### [facility] [address] [place] [address] Dr. Jose David Shanks Neutrophils/100 WBC (Bld) 75.9 % Critically high 43.0-75.0 [facility] Comment on above: Performed By: #### C BC #### [facility] [address] [place] [address] Dr. Jose David Shanks Platelet mean volume (Bld) [Entitic vol] 10.1 fL Normal 9.5-13.5 [facility] Comment on above: Performed By: #### C BC #### [facility] [address] [place] [address] Dr. Jose David Shanks PLT 279 103/ul Normal 150-450 [facility] Comment on above: Performed By: #### C BC #### [facility] [address] [address] [address] Jose David Shanks RBC 3.81 106/ul Critically low 4.20-5.40 [facility] Comment on above: Performed By: #### C BC #### [facility] [address] [address] [address] Jose David Shanks WBC 5.7 103/ul Normal 4.0-11.0 [facility] Comment on above: Performed By: #### C BC #### [facility] [address] [address] [address] Jose David Shanks FERRITINon 03-01-2023 Ferritin [Mass/Vol] 180.0 ng/mL Normal 8.0-252.0 [facility] Comment on above: Performed By: #### C BC #### [facility] [address] [place] [address] Dr. Jose David Shanks IRON AND TIBCon 03-01-2023 % SATURATION 23.6 % Normal [facility] Comment on above: Performed By: #### C BC #### [facility] [address] [address] [address] Jose David Shanks Iron [Mass/Vol] 61.0 ug/dL Normal 50.0-170.0 [facility] Comment on above: Performed By: #### C BC #### [facility] [address] [place] [address] Dr. Jose David Shanks TIBC DIRECT 258.0 ug/dL Normal 250.0-450.0 [facility] Comment on above: Performed By: #### C BC #### [facility] [address] [place] [address] Dr. Jose David Shanks NM STRESS/REST MULTIon 03-01 NM STRESS/REST MULTI Patient: GERMANIA JOAQUIN Exam Date: 03/01/2023 : 1940 Gender:F Ordering : DR NATHAN HATHAWAY D.O. Admission #: [id number] Family : Order #: [id number] CLICK HERE TO VIEW EXAM RADIOLOGY REPORT [...] STUDY: PERFUSION DEFECT: LOCATION: Mid-anterior. Apical anterior. [place]. SIZE: Medium (3-4 segments). SEVERITY: Moderate. TYPE: [...] MD on 03/01/2023 at 14:54 Normal [facility] PROF CHEM 8 (BAS METB)on Anion gap [Moles/Vol] 8.8 mmol/L Normal [facility] Comment on above: Performed By: #### L ACT #### [facility] [address] [place] [address] Dr. Jose David Shanks Calcium [Mass/Vol] 9.0 mg/dL Normal 8.5-10.1 [facility] Comment on above: Performed By: #### L ACT #### [facility] [address] [address] [address] Jose David Shanks Chloride [Moles/Vol] 106 mmol/L Normal 98-107 [facility] Comment on above: Performed By: #### L ACT #### [facility] [address] [address] [address] Jose David Shanks CO2 [Moles/Vol] 31.0 mmol/L Normal 21.0-32.0 [facility] Comment on above: Performed By: #### L ACT #### [facility] [address] [address] [address] Jose David Shanks Creatinine [Mass/Vol] 1.18 mg/dL Critically high 0.55-1.02 [facility] Comment on above: Performed By: #### L ACT #### [facility] [address] [address] [address] Jose David Shanks EGFR-AF WALLISIAN 53 mL/min/1.73m2 Critically low >=60 [facility] Comment on above: Performed By: #### L ACT #### [facility] [address] [address] [address] Jose David Shanks EGFR-NON AF WALLISIAN 44 mL/min/1.73m2 Critically low >=60 [facility] Comment on above: Performed By: #### L ACT #### [facility] [address] [address] [address] Jose David Shanks Glucose [Mass/Vol] 98 mg/dL Normal 74-106 [facility] Comment on above: Performed By: #### L ACT #### [facility] [address] [address] [address] Jose David Shanks Potassium [Moles/Vol] 4.8 mmol/L Normal 3.5-5.1 [facility] Comment on above: Performed By: #### L ACT #### [facility] [address] [address] [address] Jose David Shanks Sodium [Moles/Vol] 141 mmol/L Normal 136-145 [facility] Comment on above: Performed By: #### L ACT #### [facility] [address] [address] [address] Jose David Shanks Urea nitrogen [Mass/Vol] 16.0 mg/dL Normal 7.0-18.0 [facility] Comment on above: Performed By: #### L ACT #### [facility] [address] [address] [address] Jose David Shanks Urea nitrogen/Creatinine [Mass ratio] 13.6 mg/mg Normal [facility] Comment on above: Performed By: #### L ACT #### [facility] [address] [place] [address] Dr. Jose David Shanks RETICULOCYTEon 03-01-2023 RETIC 1.51 % Normal 0.60-3.10 [facility] Comment on above: Performed By: #### C BC #### [facility] [address] [place] [address] Dr. Jose David Shanks VIT B12 AND FOLATEon 023 Cobalamin (Vitamin B12) [Mass/Vol] 1406.0 pg/mL Critically high 193.0-986.0 [facility] Comment on above: Performed By: #### C BC #### [facility] [address] [place] [address] Dr. Jose David Shanks FOLATE 19.00 ng/mL Normal 8.60-58.90 [facility] Comment on above: Performed By: #### C BC #### [facility] [address] [place] [address] Dr. Jose David Shanks CBC AUTO DIFFon 02-09-2023 BASO # 0.0 103/ul Normal 0.0-0.1 [facility] Comment on above: Performed By: #### C BC #### [facility] [address] [place] [address] Dr. Jose David Shanks Basophils/100 WBC (Bld) 0.6 % Normal 0.2-2.0 [facility] Comment on above: Performed By: #### C BC #### [facility] [address] [place] [address] Dr. Jose David Shanks EO # 0.1 103/ul Normal 0.0-0.7 [facility] Comment on above: Performed By: #### C BC #### [facility] [address] [place] [address] Dr. Jose David Shanks Eosinophils/100 WBC (Bld) 2.7 % Normal 0.9-7.0 [facility] Comment on above: Performed By: #### C BC #### [facility] [address] [place] [address] Dr. Jose David Shanks Erythrocyte distribution width (RBC) [Ratio] 13.5 % Normal 11.0-15.0 [facility] Comment on above: Performed By: #### C BC #### [facility] [address] [place] [address] Dr. Jose David Shanks Hematocrit (Bld) [Volume fraction] 30.0 % Critically low 36.0-48.0 [facility] Comment on above: Performed By: #### C BC #### [facility] [address] [place] [address] Dr. Jose David Shanks Hemoglobin (Bld) [Mass/Vol] 10.0 g/dL Critically low 12.0-16.0 [facility] Comment on above: Performed By: #### C BC #### [facility] [address] [place] [address] Dr. Jose David Shanks IG # 0.02 10e3/ul Normal 0.00-0.03 [facility] Comment on above: Performed By: #### C BC #### [facility] [address] [place] [address] Dr. Jose David Shanks IG % 0.4 % Normal 0.0-0.5 [facility] Comment on above: Performed By: #### C BC #### [facility] [address] [place] [address] Dr. Jose David Shanks LYMPH # 0.9 103/ul Critically low 1.2-3.8 [facility] Comment on above: Performed By: #### C BC #### [facility] [address] [place] [address] Dr. Jose David Shanks Lymphocytes/100 WBC (Bld) 19.3 % Critically low 20.5-60.0 [facility] Comment on above: Performed By: #### C BC #### [facility] [address] [place] [address] Dr. Jose David Shanks MANUAL DIFF REQ NO Normal [facility] Comment on above: Performed By: #### C BC #### [facility] [address] [place] [address] Dr. Jose David Shanks MCH (RBC) [Entitic mass] 29.3 pg Normal 26.7-34.0 [facility] Comment on above: Performed By: #### C BC #### [facility] [address] [place] [address] Dr. Jose David Shanks MCHC (RBC) [Mass/Vol] 33.3 g/dL Normal 29.9-35.2 [facility] Comment on above: Performed By: #### C BC #### [facility] [address] [place] [address] Dr. Jose David Shanks MCV (RBC) [Entitic vol] 88.0 fL Normal 81.0-99.0 [facility] Comment on above: Performed By: #### C BC #### [facility] [address] [place] [address] Dr. Jose David Shanks MONO # 0.4 103/ul Normal 0.3-0.8 [facility] Comment on above: Performed By: #### C BC #### [facility] [address] [place] [address] Dr. Jose David Shanks Monocytes/100 WBC (Bld) 8.3 % Normal 1.7-12.0 [facility] Comment on above: Performed By: #### C BC #### [facility] [address] [place] [address] Dr. Jose David Shanks NEUT # 3.3 103/ul Normal 1.4-6.5 [facility] Comment on above: Performed By: #### C BC #### [facility] [address] [place] [address] Dr. Jose David Shanks Neutrophils/100 WBC (Bld) 68.7 % Normal 43.0-75.0 [facility] Comment on above: Performed By: #### C BC #### [facility] [address] [place] [address] Dr. Jose David Shanks Platelet mean volume (Bld) [Entitic vol] 9.9 fL Normal 9.5-13.5 [facility] Comment on above: Performed By: #### C BC #### [facility] [address] [place] [address] Dr. Jose David Shanks PLT 259 103/ul Normal 150-450 [facility] Comment on above: Performed By: #### C BC #### [facility] [address] [place] [address] Dr. Jose David Shanks RBC 3.41 106/ul Critically low 4.20-5.40 [facility] Comment on above: Performed By: #### C BC #### [facility] [address] [address] [address] Jose David Shanks WBC 4.8 103/ul Normal 4.0-11.0 [facility] Comment on above: Performed By: #### C BC #### [facility] [address] [place] [address] Dr. Jose David Shanks PROF CHEM 8 (BAS METB)on Anion gap [Moles/Vol] 11.7 mmol/L Normal [facility] Comment on above: Performed By: #### L ACT #### [facility] [address] [place] [address] Dr. Jose David Shanks Calcium [Mass/Vol] 8.6 mg/dL Normal 8.5-10.1 [facility] Comment on above: Performed By: #### L ACT #### [facility] [address] [place] [address] Dr. Jose David Shanks Chloride [Moles/Vol] 107 mmol/L Normal 98-107 [facility] Comment on above: Performed By: #### L ACT #### [facility] [address] [place] [address] Dr. Jose David Shanks CO2 [Moles/Vol] 30.9 mmol/L Normal 21.0-32.0 [facility] Comment on above: Performed By: #### L ACT #### [facility] [address] [place] [address] Dr. Jose David Shanks Creatinine [Mass/Vol] 1.04 mg/dL Critically high 0.55-1.02 [facility] Comment on above: Performed By: #### L ACT #### [facility] [address] [place] [address] Dr. Jose David Shanks EGFR-AF WALLISIAN >60 Normal >=60 [facility] Comment on above: Performed By: #### L ACT #### [facility] [address] [address] [address] Jose David Shanks EGFR-NON AF WALLISIAN 51 mL/min/1.73m2 Critically low >=60 [facility] Comment on above: Performed By: #### L ACT #### [facility] [address] [address] [address] Jose David Shanks Glucose [Mass/Vol] 97 mg/dL Normal 74-106 [facility] Comment on above: Performed By: #### L ACT #### [facility] [address] [address] [address] Jose David hSanks Potassium [Moles/Vol] 3.6 mmol/L Normal 3.5-5.1 [facility] Comment on above: Performed By: #### L ACT #### [facility] [address] [address] [address] Jose David Shanks Sodium [Moles/Vol] 146 mmol/L Critically high 136-145 [facility] Comment on above: Performed By: #### L ACT #### [facility] [address] [address] [address] Jose David Shanks Urea nitrogen [Mass/Vol] 17.0 mg/dL Normal 7.0-18.0 [facility] Comment on above: Performed By: #### L ACT #### [facility] [address] [address] [address] Jose David Shanks Urea nitrogen/Creatinine [Mass ratio] 16.3 mg/mg Normal [facility] Comment on above: Performed By: #### L ACT #### [facility] [id number] Jose David Shanks XR CHEST 2 Von 02-09-2023 XR CHEST 2 V HISTORY: 82-year-fem matthew referred for shortness of breath. COMPARISON: 02-08-2023. FINDINGS: PA and lateral radiographs of the chest were obtained. There are hazy opacities at the lung bases. Overall, the opacities have improved when compared to prior exam on 4-13-2023. No pneumothorax. No large pleural effusion. Cardiomediastinal [...] EDWARD MENA Date: 2023-02-09 15:56 Normal [facility] BNPon 02-08-2023 Natriuretic peptide B (Bld) [Mass/Vol] 1007.0 pg/mL Normal <=1,800.0 [facility] Comment on above: Performed By: #### B FLEXO OPERATOR #### [facility] [address] [place] [address] Dr. Jose David Shanks CARDIAC TALI 3-6on 3 CK [Catalytic activity/Vol] 29 U/L Normal 26-192 [facility] Comment on above: Performed By: #### C MREP #### [facility] [address] [place] [address] Dr. Jose David Shanks CK.MB [Mass/Vol] 0.90 ng/mL Normal <=3.60 [facility] Comment on above: Performed By: #### C MREP #### [facility] [address] [place] [address] Dr. Jose David Shanks HSTROP 69.4 pg/mL Critically high 4.0-51.3 [facility] Comment on above: Result Comment: CUT- OFF POINTS HAVE BEEN ESTABLISHED BASED ON THE FOURTH UNIVERSAL DEFINITIONS OF MYOCARDIAL INFARCTION. THE UPPER REFERENCE LIMIT (URL) OF TROPONIN, DEFINED THE 99TH PERCENTILE OF cTnI DISTRIBUTION IN A REFERENCE POPULATION, HAS BEEN CONFIRMED THE DECISION THRESHOLD FOR AK DIAGNOSIS. Performed By: #### C MREP #### [facility] [address] [place] [address] Dr. Jose David Shanks CK [Catalytic activity/Vol] 23 U/L Critically low 26-192 [facility] Comment on above: Performed By: #### C MREP #### [facility] [address] [place] [address] Dr. Jose David Shanks CK.MB [Mass/Vol] ng/mL Normal <=3.60 [facility] Comment on above: Performed By: #### C MREP #### [facility] [address] [place] [address] Dr. Jose David Shanks HSTROP 72.0 pg/mL Critically high 4.0-51.3 [facility] Comment on above: Result Comment: CUT- OFF POINTS HAVE BEEN ESTABLISHED BASED ON THE FOURTH UNIVERSAL DEFINITIONS OF MYOCARDIAL INFARCTION. THE UPPER REFERENCE LIMIT (URL) OF TROPONIN, DEFINED THE 99TH PERCENTILE OF cTnI DISTRIBUTION IN A REFERENCE POPULATION, HAS BEEN CONFIRMED THE DECISION THRESHOLD FOR AK DIAGNOSIS. Performed By: #### C MREP #### [facility] [address] [place] [address] Dr. Jose David Shanks CARDIAC TALI ADMITon 023 CK [Catalytic activity/Vol] 31 U/L Normal 26-192 [facility] Comment on above: Performed By: #### C MADM, BMP #### [facility] [address] [place] [address] Dr. Jose David Shanks CK.MB [Mass/Vol] ng/mL Normal <=3.60 [facility] Comment on above: Performed By: #### C MADM, BMP #### [facility] [address] [place] [address] Dr. Jose David Shanks HSTROP 26.3 pg/mL Normal 4.0-51.3 [facility] Comment on above: Result Comment: CUT- OFF POINTS HAVE BEEN ESTABLISHED BASED ON THE FOURTH UNIVERSAL DEFINITIONS OF MYOCARDIAL INFARCTION. THE UPPER REFERENCE LIMIT (URL) OF TROPONIN, DEFINED THE 99TH PERCENTILE OF cTnI DISTRIBUTION IN A REFERENCE POPULATION, HAS BEEN CONFIRMED THE DECISION THRESHOLD FOR AK DIAGNOSIS. Performed By: #### C MADM, BMP #### [facility] [address] [place] [address] Dr. Jose David Shanks MAMI 52 ng/mL Normal 9-82 [facility] Comment on above: Performed By: #### C MADM, BMP #### [facility] [address] [place] [address] Dr. Jose David Shanks CBC AUTO DIFFon 02-08-2023 BASO # 0.0 103/ul Normal 0.0-0.1 [facility] Comment on above: Performed By: #### L ACT #### [facility] [address] [place] [address] Dr. Jose David Shanks Basophils/100 WBC (Bld) 0.3 % Normal 0.2-2.0 [facility] Comment on above: Performed By: #### L ACT #### [facility] [address] [place] [address] Dr. Jose David Shanks EO # 0.1 103/ul Normal 0.0-0.7 [facility] Comment on above: Performed By: #### L ACT #### [facility] [address] [place] [address] Dr. Jose David Shanks Eosinophils/100 WBC (Bld) 0.5 % Critically low 0.9-7.0 [facility] Comment on above: Performed By: #### L ACT #### [facility] [address] [place] [address] Dr. Jose David Shanks Erythrocyte distribution width (RBC) [Ratio] 13.4 % Normal 11.0-15.0 [facility] Comment on above: Performed By: #### L ACT #### [facility] [address] [place] [address] Dr. Jose David Shanks Hematocrit (Bld) [Volume fraction] 33.0 % Critically low 36.0-48.0 [facility] Comment on above: Performed By: #### L ACT #### [facility] [address] [place] [address] Dr. Jose David Shanks Hemoglobin (Bld) [Mass/Vol] 11.1 g/dL Critically low 12.0-16.0 [facility] Comment on above: Performed By: #### L ACT #### [facility] [address] [place] [address] Dr. Jose David Shanks IG # 0.06 10e3/ul Critically high 0.00-0.03 [facility] Comment on above: Performed By: #### L ACT #### [facility] [address] [place] [address] Dr. Jose David Shanks IG % 0.5 % Normal 0.0-0.5 [facility] Comment on above: Performed By: #### L ACT #### [facility] [address] [place] [address] Dr. Jose David Shanks LYMPH # 0.8 103/ul Critically low 1.2-3.8 [facility] Comment on above: Performed By: #### L ACT #### [facility] [address] [place] [address] Dr. Jose David Shanks Lymphocytes/100 WBC (Bld) 7.0 % Critically low 20.5-60.0 [facility] Comment on above: Performed By: #### L ACT #### [facility] [address] [place] [address] Dr. Jose David Shanks MANUAL DIFF REQ NO Normal [facility] Comment on above: Performed By: #### L ACT #### [facility] [address] [place] [address] Dr. Jose David Shanks MCH (RBC) [Entitic mass] 29.6 pg Normal 26.7-34.0 [facility] Comment on above: Performed By: #### L ACT #### [facility] [address] [place] [address] Dr. Jose David Shanks MCHC (RBC) [Mass/Vol] 33.6 g/dL Normal 29.9-35.2 [facility] Comment on above: Performed By: #### L ACT #### [facility] [address] [place] [address] Dr. Jose David Shanks MCV (RBC) [Entitic vol] 88.0 fL Normal 81.0-99.0 [facility] Comment on above: Performed By: #### L ACT #### [facility] [address] [place] [address] Dr. Jose David Shanks MONO # 0.6 103/ul Normal 0.3-0.8 [facility] Comment on above: Performed By: #### L ACT #### [facility] [address] [place] [address] Dr. Jos eDavid Shanks Monocytes/100 WBC (Bld) 5.4 % Normal 1.7-12.0 [facility] Comment on above: Performed By: #### L ACT #### [facility] [address] [place] [address] Dr. Jose David Shanks NEUT # 9.9 103/ul Critically high 1.4-6.5 [facility] Comment on above: Performed By: #### L ACT #### [facility] [address] [place] [address] Dr. Jose David Shanks Neutrophils/100 WBC (Bld) 86.3 % Critically high 43.0-75.0 [facility] Comment on above: Performed By: #### L ACT #### [facility] [address] [place] [address] Dr. Jose David Shanks Platelet mean volume (Bld) [Entitic vol] 10.1 fL Normal 9.5-13.5 [facility] Comment on above: Performed By: #### L ACT #### [facility] [address] [place] [address] Dr. Jose David Shanks PLT 333 103/ul Normal 150-450 [facility] Comment on above: Performed By: #### L ACT #### [facility] [address] [place] [address] Dr. Jose David Shanks RBC 3.75 106/ul Critically low 4.20-5.40 [facility] Comment on above: Performed By: #### L ACT #### [facility] [address] [place] [address] Dr. Jose David Shanks WBC 11.5 103/ul Critically high 4.0-11.0 [facility] Comment on above: Performed By: #### L ACT #### [facility] [address] [address] [address] Jose David Shanks CULTURE BLOODon 02-08-2023 Microscopic examination of blood, culture Culture Observations: NO GROWTH AT 5 DAYS. Normal [facility] Comment on above: Performed By: #### L ACT #### [facility] [address] [place] [address] Dr. Jose David Shanks Microscopic examination of blood, culture Culture Observations: NO GROWTH AT 5 DAYS. Normal [facility] Comment on above: Performed By: #### L ACT #### [facility] [address] [address] [address] Jose David Shanks ECHOCARDIO M/2D COMPLETEon 0 02-08-2023 ECHOCARDIO M/2D COMPLETE Patient: LASHAUN JOAQUIN Exam Date: 02/08/2023 : 1940 Gender:F Ordering : DR ALLI SCOTT . Admission #: [id number] Family : DR NATHAN HATHAWAY D.O. Order #: [id number] CLICK HERE TO VIEW EXAM ECHOCARDIOGRAM REPORT [...] Jaquan Payne M.D. on 02/09/2023 at 19:11 [facility] LACTATE/LACTIC ACIDon 2022 Lactate [Moles/Vol] 1.4 mmol/L Normal 0.4-2.0 [facility] Comment on above: Performed By: #### L ACT #### [facility] [address] [address] [address] Jose David Shanks Lactate [Moles/Vol] 1.4 mmol/L Normal 0.4-2.0 [facility] Comment on above: Performed By: #### L ACT #### [facility] [address] [address] [address] Jose David Shanks PROF CHEM 8 (BAS METB)on Anion gap [Moles/Vol] 11.9 mmol/L Normal [facility] Comment on above: Performed By: #### C ELZA, BMP #### [facility] [address] [place] [address] Dr. Jose David Shanks Calcium [Mass/Vol] 9.0 mg/dL Normal 8.5-10.1 [facility] Comment on above: Performed By: #### C ABHIJITM, BMP #### [facility] [address] [address] [address] Jose David Shanks Chloride [Moles/Vol] 105 mmol/L Normal 98-107 [facility] Comment on above: Performed By: #### C ABHIJITM, BMP #### [facility] [address] [place] [address] Dr. Jose David Shanks CO2 [Moles/Vol] 28.2 mmol/L Normal 21.0-32.0 [facility] Comment on above: Performed By: #### C ABHIJITM, BMP #### [facility] [address] [address] [address] Jose David Shanks Creatinine [Mass/Vol] 0.99 mg/dL Normal 0.55-1.02 [facility] Comment on above: Performed By: #### C ABHIJITM, BMP #### [facility] [address] [place] [address] Dr. Jose David Shanks EGFR-AF WALLISIAN >60 Normal >=60 [facility] Comment on above: Performed By: #### C MADM, BMP #### [facility] [address] [place] [address] Dr. Jose David Shanks EGFR-NON AF WALLISIAN 54 mL/min/1.73m2 Critically low >=60 [facility] Comment on above: Performed By: #### C MADM, BMP #### [facility] [address] [address] [address] Jose David Shanks Glucose [Mass/Vol] 123 mg/dL Critically high 74-106 [facility] Comment on above: Performed By: #### C MADM, BMP #### [facility] [address] [place] [address] Dr. Jose David Shanks Potassium [Moles/Vol] 4.1 mmol/L Normal 3.5-5.1 [facility] Comment on above: Performed By: #### C MADM, BMP #### [facility] [address] [place] [address] Dr. Jose David Shanks Sodium [Moles/Vol] 141 mmol/L Normal 136-145 [facility] Comment on above: Performed By: #### C MADM, BMP #### [facility] [address] [place] [address] Dr. Jose David Shanks Urea nitrogen [Mass/Vol] 14.0 mg/dL Normal 7.0-18.0 [facility] Comment on above: Performed By: #### C MADM, BMP #### [facility] [address] [place] [address] Dr. Jose David Shanks Urea nitrogen/Creatinine [Mass ratio] 14.1 mg/mg Normal [facility] Comment on above: Performed By: #### C MADM, BMP #### [facility] [address] [place] [address] Dr. Jose David Shanks RESPIRATORY PANEL PLUSon Adenovirus Not detected Normal NOT DETECTED [facility] Comment on above: Performed By: #### R SPLUS #### [facility] [address] [place] [address] Dr. Jose David Shanks B. Parapertusis Not detected Normal NOT DETECTED [facility] Comment on above: Performed By: #### R SPLUS #### [facility] [address] [place] [address] Dr. Jose David Mccormack Pertussis Not detected Normal NOT DETECTED [facility] Comment on above: Performed By: #### R SPLUS #### [facility] [address] [place] [address] Dr. Jose David Shanks Chlamydia Pneumoniae Not detected Normal NOT DETECTED [facility] Comment on above: Performed By: #### R SPLUS #### [facility] [address] [place] [address] Dr. Jose David Shanks Coronavirus 229E Not detected Normal NOT DETECTED [facility] Comment on above: Performed By: #### R SPLUS #### [facility] [address] [place] [address] Dr. Jose David Shanks Coronavirus HKU1 Not detected Normal NOT DETECTED [facility] Comment on above: Performed By: #### R SPLUS #### [facility] [address] [place] [address] Dr. Jose David Shanks Coronavirus NL63 Not detected Normal NOT DETECTED [facility] Comment on above: Performed By: #### R SPLUS #### [facility] [address] [place] [address] Dr. Jose David Shanks Coronavirus OC43 Not detected Normal NOT DETECTED [facility] Comment on above: Performed By: #### R SPLUS #### [facility] [address] [place] [address] Dr. Jose David Shanks Influenza A H1 Not detected Normal NOT DETECTED [facility] Comment on above: Performed By: #### R SPLUS #### [facility] [address] [place] [address] Dr. Jose David Shanks Influenza A H1 2009 Not detected Normal NOT DETECTED [facility] Comment on above: Performed By: #### R SPLUS #### [facility] [address] [place] [address] Dr. Jose David Shanks Influenza A H3 Not detected Normal NOT DETECTED [facility] Comment on above: Performed By: #### R SPLUS #### [facility] [address] [place] [address] Dr. Jose David Shanks Influenza B Not detected Normal NOT DETECTED [facility] Comment on above: Performed By: #### R SPLUS #### [facility] [address] [place] [address] Dr. Jose David Shanks Metapneumovirus Not detected Normal NOT DETECTED [facility] Comment on above: Performed By: #### R SPLUS #### [facility] [address] [place] [address] Dr. Jose David Shanks Mycoplas. Pneumoniae Not detected Normal NOT DETECTED [facility] Comment on above: Performed By: #### R SPLUS #### [facility] [address] [place] [address] Dr. Jose David Shanks Parainfluenza 1 Not detected Normal NOT DETECTED [facility] Comment on above: Performed By: #### R SPLUS #### [facility] [address] [place] [address] Dr. Jose David Shanks Parainfluenza 2 Not detected Normal NOT DETECTED [facility] Comment on above: Performed By: #### R SPLUS #### [facility] [address] [place] [address] Dr. Jose David Shanks Parainfluenza 3 Not detected Normal NOT DETECTED [facility] Comment on above: Performed By: #### R SPLUS #### [facility] [address] [place] [address] Dr. Jose David Shanks Parainfluenza 4 Not detected Normal NOT DETECTED [facility] Comment on above: Performed By: #### R SPLUS #### [facility] [address] [place] [address] Dr. Jose David Shanks Rhino/Enterovirus Not detected Normal NOT DETECTED [facility] Comment on above: Performed By: #### R SPLUS #### [facility] [address] [place] [address] Dr. Jose David MCCURDY Header 1 RESPIRATORY PANEL: VIRUSES Normal [facility] Comment on above: Performed By: #### R SPLUS #### [facility] [address] [place] [address] Dr. Jose David MCCURDY Header 2 RESPIRATORY PANEL: BACTERIA Normal [facility] Comment on above: Performed By: #### R SPLUS #### [facility] [address] [address] [address] Jose David Shanks RSV Not detected Normal NOT DETECTED [facility] Comment on above: Performed By: #### R SPLUS #### [facility] [address] [address] [address] Jose David Shanks SARS-CoV-2 (COVID-19) RNA ZABRINA+probe Ql (Unsp spec) Not detected Normal NOT DETECTED [facility] Comment on above: Performed By: #### R SPLUS #### [facility] [address] [address] [address] Jose David Shanks XR CHEST 1 [...] Petra SAHU Date: 2023-02-08 05:21 Normal [facility] MAMM SCREEN 3D SCARLETT CADon 01-08-2023 MG MAMM SCREEN 3D SCARLETT CAD Patient: LASHAUN JOAQUIN Exam Date: 01/08/2023 : 1940 Gender:F Ordering : DR NATHAN HATHAWAY D.O. Admission #: [id number] Family : Order #: [id number] CLICK HERE TO VIEW EXAM RADIOLOGY REPORT [...] lung cancer at age 62. LOCATION: [facility] BREAST COMPOSITION: Extremely dense, which lowers the [...] William Dominguez MD on 01/08/2023 at 11:24 [facility] CNOVSPon 12-04-2022 CNOVSP Visit (SP) Office ([place]) ----- LASHAUN JOAQUIN ([id number]) 1940 F Date Time Provider Department 12/04/22 [...] lower extremiti (more content not included)... Normal [facility] CBC W Auto Differential pane l (Bld)on 11-27-2022 Basophils (Bld) [#/Vol] 0.04 10*3/uL Normal <0.11 [facility] Comment on above: Order Comment: Speci men Type: BLOOD SPECIMEN Ordering Facility: [facility] Address: [place] [address] Performed By: #### 5 7021-8 #### [facility] CLIA [id number] [address] [place] [address] Basophils/100 WBC (Bld) 0.8 % Normal [facility] Comment on above: Order Comment: Speci men Type: BLOOD SPECIMEN Ordering Facility: [facility] Address: [address] [address] Performed By: #### 5 7021-8 #### [facility] CLIA [id number] [address] [place] [address] Differential cell count method Nom (Bld) Auto Normal [facility] Comment on above: Order Comment: Speci men Type: BLOOD SPECIMEN Ordering Facility: [facility] Address: [address] [address] Performed By: #### 5 7021-8 #### [facility] CLIA [id number] [address] [place] [address] Eosinophils (Bld) [#/Vol] 0.10 10*3/uL Normal <0.46 [facility] Comment on above: Order Comment: Speci men Type: BLOOD SPECIMEN Ordering Facility: [facility] Address: [address] [address] Performed By: #### 5 7021-8 #### [facility] CLIA [id number] [address] [place] [address] Eosinophils/100 WBC (Bld) 2.0 % Normal [facility] Comment on above: Order Comment: Speci men Type: BLOOD SPECIMEN Ordering Facility: [facility] Address: [address] [address] Performed By: #### 5 7021-8 #### [facility] CLIA [id number] [address] [place] [address] Erythrocyte distribution width (RBC) [Ratio] 13.2 % Normal 11.5-15.0 [facility] Comment on above: Order Comment: Speci men Type: BLOOD SPECIMEN Ordering Facility: [facility] Address: [address] [address] Performed By: #### 5 7021-8 #### [facility] CLIA [id number] [address] [place] [address] Hematocrit (Bld) [Volume fraction] 33.9 % Low 36.0-46.0 [facility] Comment on above: Order Comment: Speci men Type: BLOOD SPECIMEN Ordering Facility: [facility] Address: [address] [place] [address] Performed By: #### 5 7021-8 #### [facility] CLIA [id number] [address] [place] [address] 10141 Hemoglobin (Bld) [Mass/Vol] 10.9 g/dL Low 11.5-15.5 [facility] Comment on above: Order Comment: Speci men Type: BLOOD SPECIMEN Ordering Facility: [facility] Address: [address] [address] Performed By: #### 5 7021-8 #### [facility] CLIA [id number] [address] [place] [address] 70834 Immature granulocytes (Bld) [#/Vol] 0.04 10*3/uL Normal <0.10 [facility] Comment on above: Order Comment: Speci men Type: BLOOD SPECIMEN Ordering Facility: [facility] Address: [address] [address] Performed By: #### 5 7021-8 #### [facility] CLIA [id number] [address] [place] [address] 41137 Immature granulocytes/100 WBC (Bld) 0.8 % Normal [facility] Comment on above: Order Comment: Speci men Type: BLOOD SPECIMEN Ordering Facility: [facility] Address: [address] [address] Performed By: #### 5 7021-8 #### [facility] CLIA [id number] [address] [place] [address] 22395 Lymphocytes (Bld) [#/Vol] 0.88 10*3/uL Low 1.00-4.00 [facility] Comment on above: Order Comment: Speci men Type: BLOOD SPECIMEN Ordering Facility: [facility] Address: [address] [address] Performed By: #### 5 7021-8 #### [facility] CLIA [id number] [address] [place] [address] 34169 Lymphocytes/100 WBC (Bld) 17.6 % Normal [facility] Comment on above: Order Comment: Speci men Type: BLOOD SPECIMEN Ordering Facility: [facility] Address: [address] [place] [address] Performed By: #### 5 7021-8 #### [facility] CLIA [id number] [address] [place] [address] 67689 MCH (RBC) [Entitic mass] 29.0 pg Normal 26.0-34.0 [facility] Comment on above: Order Comment: Speci men Type: BLOOD SPECIMEN Ordering Facility: [facility] Address: [address] [place] [address] Performed By: #### 5 7021-8 #### [facility] CLIA [id number] [address] [place] [address] 16150 MCHC (RBC) [Mass/Vol] 32.2 g/dL Normal 30.5-36.0 [facility] Comment on above: Order Comment: Speci men Type: BLOOD SPECIMEN Ordering Facility: [facility] Address: [address] [place] [address] Performed By: #### 5 7021-8 #### [facility] CLIA [id number] [address] [place] [address] 34700 MCV (RBC) [Entitic vol] 90.2 fL Normal 80.0-100.0 [facility] Comment on above: Order Comment: Speci men Type: BLOOD SPECIMEN Ordering Facility: [facility] Address: [address] [place] [address] Performed By: #### 5 7021-8 #### [facility] CLIA [id number] [address] [place] [address] 20171 Monocytes (Bld) [#/Vol] 0.56 10*3/uL Normal <0.87 [facility] Comment on above: Order Comment: Speci men Type: BLOOD SPECIMEN Ordering Facility: [facility] Address: [address] [address] Performed By: #### 5 7021-8 #### [facility] CLIA [id number] [address] [place] [address] 84769 Monocytes/100 WBC (Bld) 11.2 % Normal [facility] Comment on above: Order Comment: Speci men Type: BLOOD SPECIMEN Ordering Facility: [facility] Address: [address] [address] Performed By: #### 5 7021-8 #### [facility] CLIA [id number] [address] [place] [address] 36906 Neutrophils (Bld) [#/Vol] 3.39 10*3/uL Normal 1.45-7.50 [facility] Comment on above: Order Comment: Speci men Type: BLOOD SPECIMEN Ordering Facility: [facility] Address: [address] [address] Performed By: #### 5 7021-8 #### [facility] CLIA [id number] [address] [place] [address] 34333 Neutrophils/100 WBC (Bld) 67.6 % Normal [facility] Comment on above: Order Comment: Speci men Type: BLOOD SPECIMEN Ordering Facility: [facility] Address: [address] [address] Performed By: #### 5 7021-8 #### [facility] CLIA [id number] [address] [place] [address] 61869 Nucleated RBC (Bld) [#/Vol] 10*3/uL Normal <0.01 [facility] Comment on above: Order Comment: Speci men Type: BLOOD SPECIMEN Ordering Facility: [facility] Address: [address] [place] [address] Performed By: #### 5 7021-8 #### [facility] CLIA [id number] [address] [place] [address] 82765 Nucleated RBC/100 WBC (Bld) [Ratio] 0.0 /100 WBC Normal [facility] Comment on above: Order Comment: Speci men Type: BLOOD SPECIMEN Ordering Facility: [facility] Address: [address] [place] [address] Performed By: #### 5 7021-8 #### [facility] CLIA [id number] [address] [place] [address] 94122 Platelet mean volume (Bld) [Entitic vol] 9.8 fL Normal 9.0-12.7 [facility] Comment on above: Order Comment: Speci men Type: BLOOD SPECIMEN Ordering Facility: [facility] Address: [address] [place] [address] Performed By: #### 5 7021-8 #### [facility] CLIA [id number] [address] [place] [address] 28461 Platelets (Bld) [#/Vol] 278 10*3/uL Normal 150-400 [facility] Comment on above: Order Comment: Speci men Type: BLOOD SPECIMEN Ordering Facility: [facility] Address: [address] [place] [address] Performed By: #### 5 7021-8 #### [facility] CLIA [id number] [address] [place] [address] 98128 RBC (Bld) [#/Vol] 3.76 10*6/uL Low 3.90-5.20 [facility] Comment on above: Order Comment: Speci men Type: BLOOD SPECIMEN Ordering Facility: [facility] Address: [address] Performed By: #### 5 7021-8 #### [facility] CLIA [id number] [address] [place] [address] 79256 WBC (Bld) [#/Vol] 5.01 10*3/uL Normal 3.70-11.00 [facility] Comment on above: Order Comment: Speci men Type: BLOOD SPECIMEN Ordering Facility: [facility] Address: [address] [place] [address] Performed By: #### 5 7021-8 #### [facility] CLIA [id number] [address] [place] [address] 65673 Comprehensive metabolic 2000 panelon 11-27-2022 Albumin [Mass/Vol] 3.9 g/dL Normal 3.9-4.9 [facility] Comment on above: Order Comment: Speci men Type: BLOOD SPECIMEN Ordering Facility: [facility] Address: [address] [address] Performed By: #### 2 4323-8 #### [facility] CLIA [id number] [address] [place] [address] 11767 ALP [Catalytic activity/Vol] 48 U/L Normal 34-123 [facility] Comment on above: Order Comment: Speci men Type: BLOOD SPECIMEN Ordering Facility: [facility] Address: [address] [address] Performed By: #### 2 4323-8 #### [facility] CLIA [id number] [address] [place] [address] 31685 ALT [Catalytic activity/Vol] 10 U/L Normal 7-38 [facility] Comment on above: Order Comment: Speci men Type: BLOOD SPECIMEN Ordering Facility: [facility] Address: [address] [place] [address] Performed By: #### 2 4323-8 #### [facility] CLIA [id number] [address] [place] [address] 54367 Anion gap [Moles/Vol] 8 mmol/L Low 9-18 [facility] Comment on above: Order Comment: Speci men Type: BLOOD SPECIMEN Ordering Facility: [facility] Address: [address] [address] Performed By: #### 2 4323-8 #### [facility] CLIA [id number] [address] [place] [address] 95220 AST [Catalytic activity/Vol] 14 U/L Normal 13-35 [facility] Comment on above: Order Comment: Speci men Type: BLOOD SPECIMEN Ordering Facility: [facility] Address: [address] [address] Performed By: #### 2 4323-8 #### [facility] CLIA [id number] [address] [place] [address] 55688 Bilirubin [Mass/Vol] 0.4 mg/dL Normal 0.2-1.3 [facility] Comment on above: Order Comment: Speci men Type: BLOOD SPECIMEN Ordering Facility: [facility] Address: [address] [address] Performed By: #### 2 4323-8 #### [facility] CLIA [id number] [address] [place] [address] 08193 Calcium [Mass/Vol] 9.1 mg/dL Normal 8.5-10.2 [facility] Comment on above: Order Comment: Speci men Type: BLOOD SPECIMEN Ordering Facility: [facility] Address: [address] [address] Performed By: #### 2 4323-8 #### [facility] CLIA [id number] [address] [place] [address] 62715 Chloride [Moles/Vol] 104 mmol/L Normal 97-105 [facility] Comment on above: Order Comment: Speci men Type: BLOOD SPECIMEN Ordering Facility: [facility] Address: [address] [address] Performed By: #### 2 4323-8 #### [facility] CLIA [id number] [address] [place] [address] 33944 CO2 [Moles/Vol] 30 mmol/L Normal 22-30 [facility] Comment on above: Order Comment: Speci men Type: BLOOD SPECIMEN Ordering Facility: [facility] Address: [address] [address] Performed By: #### 2 4323-8 #### [facility] CLIA [id number] [address] [place] [address] 81489 Creatinine [Mass/Vol] 0.97 mg/dL High 0.58-0.96 [facility] Comment on above: Order Comment: Preet patino Type: BLOOD SPECIMEN Ordering Facility: [facility] Address: [address] [id number] Performed By: #### 2 4323-8 #### [facility] CLIA [id number] [address] [place] [address] 82257 ESTIMATED GLOMERULAR FILTRATION RATE 59 mL/min/1.73m??? Low >=60 [facility] Comment on above: Order Comment: Preet patino Type: BLOOD SPECIMEN Ordering Facility: [facility] Address: [address] [address] Result Comment: Shoshana mated Glomerular Filtration Rate [...] GFR. Performed By: #### 2 4323-8 #### [facility] CLIA [id number] [address] [place] [address] 83295 Glucose [Mass/Vol] 101 mg/dL High 74-99 [facility] Comment on above: Order Comment: Preet patino Type: BLOOD SPECIMEN Ordering Facility: [facility] Address: [address] [place] [address] Result Comment: The [place] [employer] (ADA) provides guidance for cutoff [...] Standards of Medical Care in Diabetes 2016, [place] [employer]. Diabetes Care. 2016.39(Suppl 1). Performed By: #### 2 4323-8 #### [facility] CLIA [id number] [address] [place] [address] 65429 Potassium [Moles/Vol] 4.5 mmol/L Normal 3.7-5.1 [facility] Comment on above: Order Comment: Speci men Type: BLOOD SPECIMEN Ordering Facility: [facility] Address: [address] [place] [address] Performed By: #### 2 4323-8 #### [facility] CLIA [id number] [address] [place] [address] 40124 Protein [Mass/Vol] 6.5 g/dL Normal 6.3-8.0 [facility] Comment on above: Order Comment: Speci men Type: BLOOD SPECIMEN Ordering Facility: [facility] Address: [address] [place] [address] Performed By: #### 2 4323-8 #### [facility] CLIA [id number] [address] [place] [address] 85887 Sodium [Moles/Vol] 142 mmol/L Normal 136-144 [facility] Comment on above: Order Comment: Speci men Type: BLOOD SPECIMEN Ordering Facility: [facility] Address: [address] [address] Performed By: #### 2 4323-8 #### [facility] CLIA [id number] [address] [place] [address] 51429 Urea nitrogen [Mass/Vol] 17 mg/dL Normal 7-21 [facility] Comment on above: Order Comment: Speci men Type: BLOOD SPECIMEN Ordering Facility: [facility] Address: [address] [address] Performed By: #### 2 4323-8 #### [facility] CLIA [id number] [address] [place] [address] 28089 IMMUNOFIXATION SCREEN, SERUM on 11-27-2022 MPA RESULT No M protein is identified. Normal No M protein is identified. [facility] Comment on above: Order Comment: Speci men Type: BLOOD SPECIMEN Ordering Facility: [facility] Address: [address] [address] Performed By: #### 5 7021-8 #### [facility] CLIA [id number] [address] [place] [address] 10026 STAFF REVIEW ([facility] Reviewed by Taqueria Beck MD, Ph.D ([id number]) Normal [facility] Comment on above: Order Comment: Speci men Type: BLOOD SPECIMEN Ordering Facility: [facility] Address: [address] [address] Performed By: #### 5 7021-8 #### [facility] CLIA [id number] [address] [place] [address] 94402 IMMUNOGLOBULINS GAMon 2022 IgA [Mass/Vol] 78 mg/dL Normal 70-400 [facility] Comment on above: Order Comment: Speci men Type: BLOOD SPECIMEN Ordering Facility: [facility] Address: [address] [address] Performed By: #### 2 4323-8 #### [facility] CLIA [id number] [address] [place] [address] 94177 IgG [Mass/Vol] 683 mg/dL Low 700-1600 [facility] Comment on above: Order Comment: Speci men Type: BLOOD SPECIMEN Ordering Facility: [facility] Address: [address] [address] Performed By: #### 2 4323-8 #### [facility] CLIA [id number] [address] [place] [address] 30423 IgM [Mass/Vol] 300 mg/dL High 40-230 [facility] Comment on above: Order Comment: Speci men Type: BLOOD SPECIMEN Ordering Facility: [facility] Address: [address] [place] [address] Performed By: #### 2 4323-8 #### [facility] CLIA [id number] [address] [place] [address] 52333 KAPPA/BOWLES,FREE,SERon 2022 Immunoglobulin light chains.kappa.free (S) [Mass/Vol] 82.2 mg/L High 3.3-19.4 [facility] Comment on above: Order Comment: Speci men Type: BLOOD SPECIMEN Ordering Facility: [facility] Address: [address] [place] [address] Result Comment: Rare ly, increased serum free light chains levels may not be detected or accurately quantified due to prozone phenomenon or in high viscosity samples using this immunoturbidimetric assay. Correlation with other laboratory results and clinical findings is recommended. The [place] Free Light Chain was performed using the Binding Site Optilite immunoturbidimetric method. Result obtained with different assay methods or kits cannot be used interchangeably. Performed By: #### 2 4323-8 #### [facility] CLIA [id number] [address] [place] [address] 17422 Immunoglobulin light chains.kappa/Immunogl obulin light chains.lambda (S) [Mass ratio] 4.11 High 0.26-1.65 [facility] Comment on above: Order Comment: Speci men Type: BLOOD SPECIMEN Ordering Facility: [facility] Address: [address] [place] [address] Performed By: #### 2 4323-8 #### [facility] CLIA [id number] [address] [place] [address] 18447 Immunoglobulin light chains.lambda.free [Mass/Vol] 20.0 mg/L Normal 5.7-26.3 [facility] Comment on above: Order Comment: Speci men Type: BLOOD SPECIMEN Ordering Facility: [facility] Address: [address] [place] [address] Result Comment: Rare ly, increased serum free [...] interchangeably. Performed By: #### 2 4323-8 #### [facility] CLIA [id number] [address] [place] [address] 08674 PROTEIN ELECTROPHORESIS SERU M WITH BRANDON (P)on 11-27-2022 Albumin [Mass/Vol] 3.54 g/dL Normal 3.43-5.41 [facility] Comment on above: Order Comment: Speci men Type: BLOOD SPECIMEN Ordering Facility: [facility] Address: [address] [address] Performed By: #### 2 4323-8 #### [facility] CLIA [id number] [address] [place] [address] 98628 Alpha 1 globulin Elph [Mass/Vol] 0.36 g/dL Normal 0.18-0.43 [facility] Comment on above: Order Comment: Speci men Type: BLOOD SPECIMEN Ordering Facility: [facility] Address: [address] [address] Performed By: #### 2 4323-8 #### [facility] CLIA [id number] [address] [place] [address] 07870 Alpha 2 globulin Elph [Mass/Vol] 0.75 g/dL Normal 0.42-0.98 [facility] Comment on above: Order Comment: Speci men Type: BLOOD SPECIMEN Ordering Facility: [facility] Address: [address] [address] Performed By: #### 2 4323-8 #### [facility] CLIA [id number] [address] [place] [address] 78447 Beta globulin Elph [Mass/Vol] 0.59 g/dL Low 0.61-1.17 [facility] Comment on above: Order Comment: Speci men Type: BLOOD SPECIMEN Ordering Facility: [facility] Address: [address] [address] Performed By: #### 2 4323-8 #### [facility] CLIA [id number] [address] [place] [address] 76549 COMMENT (SERUM PROT ELECTRO) Monoclonal Protein analysis (immunofixation) is not indicated. Normal [facility] Comment on above: Order Comment: Speci men Type: BLOOD SPECIMEN Ordering Facility: [facility] Address: [address] [place] [address] Performed By: #### 2 4323-8 #### [facility] CLIA [id number] [address] [place] [address] 29750 Gamma globulin Elph [Mass/Vol] 0.76 g/dL Normal 0.53-1.51 [facility] Comment on above: Order Comment: Speci men Type: BLOOD SPECIMEN Ordering Facility: [facility] Address: [address] [place] [address] Performed By: #### 2 4323-8 #### [facility] CLIA [id number] [address] [place] [address] 48209 M-PROTEIN LOCATION Normal [facility] Comment on above: Order Comment: Speci men Type: BLOOD SPECIMEN Ordering Facility: [facility] Address: [address] [place] [address] Result Comment: Not Applicable. Performed By: #### 2 4323-8 #### [facility] CLIA [id number] [address] [place] [address] 62757 Protein Fractions [Interp] No definitive M protein is identified on protein electrophoresis. Normal No definitive M protein is identified on protein electrophor esis. [facility] Comment on above: Order Comment: Speci men Type: BLOOD SPECIMEN Ordering Facility: [facility] Address: [address] [address] Performed By: #### 2 4323-8 #### [facility] CLIA [id number] [address] [place] [address] 45444 Protein.monoclonal Elph [Mass/Vol] 0.00 g/dL Normal <=0.00 [facility] Comment on above: Order Comment: Speci men Type: BLOOD SPECIMEN Ordering Facility: [facility] Address: [address] [place] [address] Performed By: #### 2 4323-8 #### [facility] CLIA [id number] [address] [place] [address] SPE STAFF REVIEW Reviewed by Milka Bahena MD [facility] Comment on above: Order Comment: Speci men Type: BLOOD SPECIMEN Ordering Facility: [facility] Address: [address] [place] [address] Performed By: #### 2 4323-8 #### [facility] CLIA [id number] [address] [place] [address] 86409 Prot SerPl-mCncon 11-27-2022 Protein [Mass/Vol] 6.0 g/dL Low 6.3-8.0 [facility] Comment on above: Order Comment: Speci men Type: BLOOD SPECIMEN Ordering Facility: [facility] Address: [address] [place] [address] Performed By: #### 2 4323-8 #### [facility] CLIA [id number] [address] [place] [address] HEAD_NECKon 09-11-[address] HEAD_NECK [...] by: WILLIAM DOMINGUEZ Date: 2022-09-11 17:07 Normal [facility] CT Abdomen and Pelvis W cont [...] any questions regarding this interpretation, please call [phone]. If you are unable to reach us at the number above, please feel free to [facility] at [phone]. DIVISION OF RADIOLOGY * * *Final Report* * * DATE OF EXAM: Aug 28 2022 1:36PM [facility] 0530 - CT ABD/PEL W [...] chest CT performed will be reported separately. Collar Turner (topogram) images: No additional findings. DIVISION OF RADIOLOGY Provider, [facility] - 08/28/2022 * * *Final Report* * * DATE OF EXAM: Aug 28 2022 1:36PM [facility] 0530 - CT ABD/PEL W [...] chest CT performed will be reported separately. Collar Turner (topogram) images: No additional findings. IMPRESSION IMPRESSION: [...] any questions regarding this interpretation, please call [phone]. If you are unable to reach us at the number above, please feel free to contact [facility] at [phone]. [facility] CT Abdomen and Pelvis W cont rast IVOrdered By: [facility] Provider on 08-28-[address] [facility] [address] Chest W contrast Rivka IMPRESSION: [...] any questions regarding this interpretation, please call [phone]. If you are unable to reach us at the number above, please feel free to contact [facility] at [phone]. DIVISION OF RADIOLOGY * * *Final Report* * * DATE OF EXAM: Aug 28 2022 1:36PM [facility] 0539 - CT CHEST W [...] was performed concurrently and is reported separately. Collar Turner (topogram) images: No additional findings. DIVISION OF RADIOLOGY Provider, [facility] Angelo Dominguez - 08/28/2022 * * *Final Report* * * DATE OF EXAM: Aug 28 2022 1:36PM [facility] 0539 - CT CHEST W [...] was performed concurrently and is reported separately. Collar Turner (topogram) images: No additional findings. IMPRESSION IMPRESSION: [...] any questions regarding this interpretation, please call [phone]. If you are unable to reach us at the number above, please feel free to contact [facility] at [phone]. [facility] No Panel Informationon 08-28 Radiology Study observation (narrative) [facility] Covid-19 PCR ([facility])on SARS-CoV-2 (COVID-19) RNA ZABRINA+probe Ql (Unsp spec) Detected Critically abnormal NOT DETECTED [facility] Comment on above: Result Comment: This test is not yet approved or cleared by the [place] FDA. When there are no FDA-approved or cleared tests available, and other criteria are met, FDA can make tests available under an emergency access mechanism called an Emergency Use Authorization (EUA). The EUA for this test is supported by the [place] of Health and Human Service's (HHS's) declaration [...] used). Performed By: #### C [facility] #### [facility] [address] [place] [address] Dr. Jose David Shanks Vital Signs Date Time Vital Sign Value Performing Clinician Facility 01-12-2025 11:10-0400 Body height 165.1 cm Holden Rosado APRN-DRY MAN Work Phone: [facility] 01-12-2025 11:10-0400 Body mass index (BMI) [Ratio] 33.28 kg/m2 Holden Rosado PHARMACOGNOSIST-DRY MAN Work Phone: [facility] 01-12-2025 11:10-0400 Body weight 90.72 kg Holden Rosado PHARMACOGNOSIST-DRY MAN Work Phone: [facility] 01-12-2025 11:10-0400 Diastolic blood pressure 60 mm[Hg] Holden Rosado PHARMACOGNOSIST-DRY MAN Work Phone: [facility] 01-12-2025 11:10-0400 Heart rate 60 /min Holden Rosado PHARMACOGNOSIST-DRY MAN Work Phone: [facility] 01-12-2025 11:10-0400 Systolic blood pressure 124 mm[Hg] Holden Rosado PHARMACOGNOSIST-DRY MAN Work Phone: [facility] 12-16-2024 10:50-0500 Body height 166.37 cm Nathan Ball DO Work Phone: [facility] 12-16-2024 10:50-0500 Body mass index (BMI) [Ratio] 32 kg/m2 Nathan Ball DO Work Phone: [facility] 12-16-2024 10:50-0500 Body weight 88.59 kg Nathan Ball DO Work Phone: [facility] 12-16-2024 10:50-0500 Diastolic blood pressure 67 mm[Hg] Nathan Ball DO Work Phone: [facility] 12-16-2024 10:50-0500 Heart rate 56 /min Nathan Ball DO Work Phone: [facility] 12-16-2024 10:50-0500 SaO2% (BldA) [Mass fraction] 97 % Nathan Ball DO Work Phone[facility] System 12-16-2024 10:50-0500 Systolic blood pressure 136 mm[Hg] Nathan Ball DO Work Phone: [facility] 11-25-2024 13:55-0500 Body height 165.1 cm Reyna Esparza MD Work Phone: [facility] 11-25-2024 13:55-0500 Body mass index (BMI) [Ratio] 32.28 kg/m2 Reyna Esparza MD Work Phone: [facility] 11-25-2024 13:55-0500 Body weight 88 kg Reyna Esparza MD Work Phone: [facility] 11-25-2024 13:55-0500 Diastolic blood pressure 64 mm[Hg] Reyna Esparza MD Work Phone: [facility] 11-25-2024 13:55-0500 Heart rate 60 /min Reyna Esparza MD Work Phone: [facility] 11-25-2024 13:55-0500 Systolic blood pressure 141 mm[Hg] Reyna Esparza MD Work Phone: [facility] 11-17-2024 13:05-0500 Diastolic blood pressure 59 mm[Hg] Nathan Ball DO Work Phone: [facility] 11-17-2024 13:05-0500 Heart rate 68 /min Nathan Ball DO Work Phone: [facility] 11-17-2024 13:05-0500 Respiratory rate 16 /min Nathan Ball DO Work Phone: [facility] 11-17-2024 13:05-0500 SaO2% (BldA) [Mass fraction] 94 % Nathan Ball DO Work Phone: [facility] 11-17-2024 13:05-0500 Systolic blood pressure 163 mm[Hg] Nathan Ball DO Work Phone: [facility] 11-17-2024 10:05-0500 Body height 166.37 cm Nathan Ball DO Work Phone: [facility] 11-17-2024 10:05-0500 Body weight 89.35 kg Nathan Ball DO Work Phone: [facility] 10-08-2024 10:40-0500 Body height 165.1 cm Edinson Perry DO Work Phone: [facility] 10-08-2024 10:40-0500 Body mass index (BMI) [Ratio] 33.12 kg/m2 Edinson Perry DO Work Phone: [facility] 10-08-2024 10:40-0500 Body weight 90.27 kg Edinson Perry DO Work Phone: [facility] 10-08-2024 10:40-0500 Diastolic blood pressure 60 mm[Hg] Edinson Perry DO Work Phone: [facility] 10-08-2024 10:40-0500 Heart rate 78 /min Edinson Perry DO Work Phone: [facility] 10-08-2024 10:40-0500 Systolic blood pressure 124 mm[Hg] Edinson Perry DO Work Phone: [facility] 09-11-2024 10:19-0500 Body height 165.1 cm [facility] 09-11-2024 10:19-0500 Body mass index (BMI) [Ratio] 32.3 kg/m2 [facility] 09-11-2024 10:19-0500 Body weight 88.13 kg [facility] 09-11-2024 10:19-0500 Diastolic blood pressure 54 mm[Hg] [facility] 09-11-2024 10:19-0500 Heart rate 63 /min [facility] 09-11-2024 10:19-0500 SaO2% (BldA) [Mass fraction] 97 % [facility] 09-11-2024 10:19-0500 Systolic blood pressure 118 mm[Hg] [facility] 06-03-2024 10:54-0400 Body height 165.1 cm DO Nathan Ball Work Phone: [facility] 06-03-2024 10:54-0400 Body mass index (BMI) [Ratio] 26.8 kg/m2 DO Nathan Ball Work Phone: [facility] 06-03-2024 10:54-0400 Body weight 73.02 kg DO Nathan Ball Work Phone: [facility] 06-03-2024 10:54-0400 Diastolic blood pressure 89 mm[Hg] DO Nathan Ball Work Phone: [facility] 06-03-2024 10:54-0400 Heart rate 56 /min DO Nathan Ball Work Phone: [facility] 06-03-2024 10:54-0400 Respiratory rate 12 /min DO Nathan Ball Work Phone: [facility] 06-03-2024 10:54-0400 Systolic blood pressure 139 mm[Hg] DO Nathan Ball Work Phone: [facility] 04-21-2024 10:21-0400 Body mass index (BMI) [Ratio] 32.98 kg/m2 Holden Rosado PHARMACOGNOSIST-DRY MAN Work Phone: [facility] 04-21-2024 10:21-0400 Body weight 89.9 kg Holden Rosado PHARMACOGNOSIST-DRY MAN Work Phone: [facility] 04-21-2024 10:21-0400 Diastolic blood pressure 70 mm[Hg] Holden Rosado PHARMACOGNOSIST-DRY MAN Work Phone: [facility] 04-21-2024 10:21-0400 Heart rate 60 /min Holden Rosado PHARMACOGNOSIST-DRY MAN Work Phone: [facility] 04-21-2024 10:21-0400 Systolic blood pressure 132 mm[Hg] Holden Rosado PHARMACOGNOSIST-DRY MAN Work Phone: [facility] 03-12-2024 09:27-0400 Diastolic blood pressure 66 mm[Hg] Laura 1 [facility] 03-12-2024 09:27-0400 Heart rate 62 /min Laura 1 [facility] 03-12-2024 09:27-0400 Systolic blood pressure 114 mm[Hg] Laura 1 [facility] 03-05-2024 11:46-0400 Body height 165.1 cm Holden Rosado PHARMACOGNOSIST-DRY MAN Work Phone: [facility] 03-05-2024 11:46-0400 Body mass index (BMI) [Ratio] 32.62 kg/m2 Holden Rosado PHARMACOGNOSIST-DRY MAN Work Phone: [facility] 03-05-2024 11:46-0400 Body weight 88.91 kg Holden Rosado PHARMACOGNOSIST-DRY MAN Work Phone: [facility] 03-05-2024 11:46-0400 Diastolic blood pressure 68 mm[Hg] Holden Rosado PHARMACOGNOSIST-DRY MAN Work Phone: [facility] 03-05-2024 11:46-0400 Heart rate 62 /min Holden Rosado PHARMACOGNOSIST-DRY MAN Work Phone: [facility] 03-05-2024 11:46-0400 Systolic blood pressure 120 mm[Hg] Holden Rosado PHARMACOGNOSIST-DRY MAN Work Phone: [facility] 02-27-2024 09:53-0400 Body height 165.1 cm DO Nathan Ball Work Phone: [facility] 02-27-2024 09:53-0400 Body mass index (BMI) [Ratio] 31.9 kg/m2 DO Nathan Ball Work Phone: [facility] 02-27-2024 09:53-0400 Body weight 87.08 kg DO Nathan Ball Work Phone: [facility] 02-27-2024 09:53-0400 Diastolic blood pressure 72 mm[Hg] DO Nathan Ball Work Phone: [facility] 02-27-2024 09:53-0400 Heart rate 62 /min DO Nathan Ball Work Phone: [facility] 02-27-2024 09:53-0400 SaO2% (BldA) [Mass fraction] 97 % DO Nathan Ball Work Phone: [facility] 02-27-2024 09:53-0400 Systolic blood pressure 132 mm[Hg] DO Nathan Ball Work Phone: [facility] 02-13-2024 10:30-0400 Body height 165.1 cm [facility] 02-13-2024 10:30-0400 Body mass index (BMI) [Ratio] 32.8 kg/m2 [facility] 02-13-2024 10:30-0400 Body weight 89.35 kg [facility] 02-13-2024 10:30-0400 Diastolic blood pressure 60 mm[Hg] [facility] 02-13-2024 10:30-0400 Heart rate 56 /min [facility] 02-13-2024 10:30-0400 SaO2% (BldA) [Mass fraction] 98 % [facility] 02-13-2024 10:30-0400 Systolic blood pressure 128 mm[Hg] [facility] 02-01-2024 11:01-0400 Body height 165.1 cm [facility] 02-01-2024 11:01-0400 Body mass index (BMI) [Ratio] 27.3 kg/m2 [facility] 02-01-2024 11:01-0400 Body weight 74.44 kg [facility] 02-01-2024 11:01-0400 Diastolic blood pressure 72 mm[Hg] [facility] 02-01-2024 11:01-0400 Heart rate 49 /min [facility] 02-01-2024 11:01-0400 Respiratory rate 12 /min [facility] 02-01-2024 11:01-0400 Systolic blood pressure 131 mm[Hg] [facility] 11-02-2023 11:00-0500 Body height 165.1 cm Nathan Ball Other [employer] [facility] [employer] Other 11-02-2023 11:00-0500 Body mass index (BMI) [Ratio] 31.78 kg/m2 Nathan Ball Other [employer] [facility] [employer] Other 11-02-2023 11:00-0500 Body weight 86.64 kg Nathan Ball Other [employer] Other 11-02-2023 11:00-0500 Diastolic blood pressure 80 mm[Hg] Nathan Ball Other [employer] Other 11-02-2023 11:00-0500 Respiratory rate 16 /min Nathan Ball Other [employer] Other 11-02-2023 11:00-0500 Systolic blood pressure 130 mm[Hg] Nathan Ball Other [employer] Other 10-02-2023 09:45-0500 Body height 165.1 cm Nathan Ball Other [employer] Other 10-02-2023 09:45-0500 Body mass index (BMI) [Ratio] 31.61 kg/m2 Nathan Ball Other [employer] Other 10-02-2023 09:45-0500 Body weight 86.18 kg Nathan Ball Other [employer] Other 10-02-2023 09:45-0500 Diastolic blood pressure 74 mm[Hg] Nathan Ball Other [employer] Other 10-02-2023 09:45-0500 Respiratory rate 12 /min Nathan Ball Other [employer] Other 10-02-2023 09:45-0500 Systolic blood pressure 144 mm[Hg] Nathan Ball Other [employer] Other 06-08-2023 11:15-0400 Body height 165.1 cm Nathan Ball Other [employer] Other 06-08-2023 11:15-0400 Body mass index (BMI) [Ratio] 32.95 kg/m2 Nathan Ball Other [employer] Other 06-08-2023 11:15-0400 Body weight 89.81 kg Nathan Ball Other [employer] Other 06-08-2023 11:15-0400 Diastolic blood pressure 62 mm[Hg] Nathan Ball Other [employer] Other 06-08-2023 11:15-0400 Respiratory rate 12 /min Nathan Ball Other [employer] Other 06-08-2023 11:15-0400 Systolic blood pressure 138 mm[Hg] Nathan Ball Other [employer] Other 06-04-2023 13:51-0400 Body temperature 97.7 [degF] Luis Mckenzie MD Work Phone: [facility] 06-04-2023 13:51-0400 Body weight 91.99 kg Luis Mckenzie MD Work Phone: [facility] 06-04-2023 13:51-0400 Diastolic blood pressure 58 mm[Hg] Luis Mckenzie MD Work Phone: [facility] 06-04-2023 13:51-0400 Heart rate 56 /min Luis Mckenzie MD Work Phone: [facility] 06-04-2023 13:51-0400 Respiratory rate 18 /min Luis Mckenzie MD Work Phone: [facility] 06-04-2023 13:51-0400 SaO2% (BldA) [Mass fraction] 98 % Luis Mckenzie MD Work Phone: [facility] 06-04-2023 13:51-0400 Systolic blood pressure 155 mm[Hg] Luis Mckenzie MD Work Phone: [facility] 05-25-2023 11:15-0400 Body height 165.1 cm Nathan Ball Other [employer] Other 05-25-2023 11:15-0400 Body mass index (BMI) [Ratio] 32.86 kg/m2 Nathan Ball Other [employer] Other 05-25-2023 11:15-0400 Body weight 89.59 kg Nathan Ball Other [employer] Other 05-25-2023 11:15-0400 Diastolic blood pressure 68 mm[Hg] Nathan Ball Other [employer] Other 05-25-2023 11:15-0400 Respiratory rate 16 /min Nathan Ball Other [employer] Other 05-25-2023 11:15-0400 Systolic blood pressure 142 mm[Hg] Nathan Ball Other [employer] Other 05-18-2023 15:30-0400 Body temperature 97.7 [degF] DO Nathan Ball Work Phone: [facility] 05-18-2023 15:30-0400 Diastolic blood pressure 71 mm[Hg] DO Nathan Ball Work Phone: [facility] 05-18-2023 15:30-0400 Heart rate 62 /min DO Nathan Ball Work Phone: [facility] 05-18-2023 15:30-0400 Respiratory rate 16 /min DO Nathan Ball Work Phone: [facility] 05-18-2023 15:30-0400 SaO2% (BldA) [Mass fraction] 95 % DO Nathan Ball Work Phone: [facility] 05-18-2023 15:30-0400 Systolic blood pressure 145 mm[Hg] DO Nathan Ball Work Phone: [facility] 05-18-2023 05:39-0400 Body weight 88.1 kg DO Nathan Ball Work Phone: [facility] 05-17-2023 20:00-0400 Inhaled oxygen flow rate 1.5 L/min DO Nathan Ball Work Phone: [facility] 05-17-2023 15:54-0400 Body height 172.72 cm DO Nathan Ball Work Phone: [facility] 05-16-2023 11:30-0400 Body height 165.1 cm Nathan Ball Other [facility] [employer] Other 05-16-2023 11:30-0400 Body mass index (BMI) [Ratio] 33.28 kg/m2 Nathan Ball Other [employer] Other 05-16-2023 11:30-0400 Body weight 90.72 kg Nathan Ball Other [employer] Other 05-16-2023 11:30-0400 Diastolic blood pressure 69 mm[Hg] Nathan Ball Other [employer] Other 05-16-2023 11:30-0400 Respiratory rate 16 /min Nathan Ball Other [employer] Other 05-16-2023 11:30-0400 Systolic blood pressure 192 mm[Hg] Nathan Ball Other [employer] Other 05-09-2023 11:15-0400 Body height 165.1 cm Nathan Ball Other [employer] Other 05-09-2023 11:15-0400 Body mass index (BMI) [Ratio] 32.75 kg/m2 Nathan Ball Other [employer] Other 05-09-2023 11:15-0400 Body weight 89.27 kg Nathan Ball Other [employer] Other 05-09-2023 11:15-0400 Diastolic blood pressure 62 mm[Hg] Nathan Ball Other [employer] Other 05-09-2023 11:15-0400 Respiratory rate 16 /min Nathan Ball Other [employer] Other 05-09-2023 11:15-0400 SaO2% (BldA) [Mass fraction] 98 % Nathan Ball Other [employer] Other 05-09-2023 11:15-0400 Systolic blood pressure 189 mm[Hg] Nathan Ball Other [employer] Other 04-26-2023 11:30-0400 Body height 165.1 cm Nathan Ball Other [employer] Other 04-26-2023 11:30-0400 Body mass index (BMI) [Ratio] 32.53 kg/m2 Nathan Ball Other [employer] Other 04-26-2023 11:30-0400 Body weight 88.68 kg Nathan Ball Other [employer] Other 04-26-2023 11:30-0400 Diastolic blood pressure 80 mm[Hg] Nathan Ball Other [employer] Other 04-26-2023 11:30-0400 Respiratory rate 16 /min Nathan Ball Other [employer] Other 04-26-2023 11:30-0400 Systolic blood pressure 136 mm[Hg] Nathan Ball Other [employer] Other 04-18-2023 09:45-0400 Body height 165.1 cm Nathan Ball Other [employer] Other 04-18-2023 09:45-0400 Body mass index (BMI) [Ratio] 33.28 kg/m2 Nathan Ball Other [employer] Other 04-18-2023 09:45-0400 Body weight 90.72 kg Nathan Ball Other [employer] Other 04-18-2023 09:45-0400 Diastolic blood pressure 76 mm[Hg] Nathan Ball Other [employer] Other 04-18-2023 09:45-0400 Respiratory rate 20 /min Nathan Ball Other [employer] Other 04-18-2023 09:45-0400 SaO2% (BldA) [Mass fraction] 98 % Nathan Ball Other [employer] Other 04-18-2023 09:45-0400 Systolic blood pressure 132 mm[Hg] Nathan Ball Other [employer] Other 03-15-2023 10:45-0400 Body height 165.1 cm Nathan Ball Other [employer] Other 03-15-2023 10:45-0400 Body mass index (BMI) [Ratio] 31.95 kg/m2 Nathan Ball Other [employer] Other 03-15-2023 10:45-0400 Body weight 87.09 kg Nathan Ball Other [employer] Other 03-15-2023 10:45-0400 Diastolic blood pressure 77 mm[Hg] Nathan Ball Other [employer] Other 03-15-2023 10:45-0400 Respiratory rate 16 /min Nathan Ball Other [facility] [employer] Other 03-15-2023 10:45-0400 Systolic blood pressure 151 mm[Hg] Nathan Ball Other [facility] [employer] Other 03-09-2023 17:00-0400 Body temperature 97.9 [degF] DO Nathan Ball Work Phone: [facility] 03-09-2023 17:00-0400 Diastolic blood pressure 72 mm[Hg] DO Nathan Ball Work Phone: [facility] 03-09-2023 17:00-0400 Heart rate 54 /min DO Nathan Ball Work Phone: [facility] 03-09-2023 17:00-0400 Respiratory rate 16 /min DO Nathan Ball Work Phone: [facility] 03-09-2023 17:00-0400 SaO2% (BldA) [Mass fraction] 96 % DO Nathan Ball Work Phone: [facility] 03-09-2023 17:00-0400 Systolic blood pressure 140 mm[Hg] DO Nathan Ball Work Phone: [facility] 03-09-2023 08:11-0400 Body height 165.1 cm DO Nathan Ball Work Phone: [facility] 03-09-2023 08:11-0400 Body weight 90 kg DO Nathan Ball Work Phone: [facility] 03-07-2023 10:14-0400 Diastolic blood pressure 70 mm[Hg] Nathan E Ball Work Phone: [facility] DO Work Phone: 03-07-2023 10:14-0400 Systolic blood pressure 138 mm[Hg] Nathan E Ball Work Phone: [facility] [address] DO Work Phone: 03-07-2023 10:04-0400 Body height 165.1 cm Nathan E Ball Work Phone: [facility] DO Work Phone: 03-07-2023 10:04-0400 Body mass index (BMI) [Ratio] 33.95 kg/m2 Nathan E Ball Work Phone: [facility] [employer] DO Work Phone: 03-07-2023 10:04-0400 Body surface area Derived from formula 1.99 m2 Nathan E Ball Work Phone: [facility] [employer] DO Work Phone: 03-07-2023 10:04-0400 Body weight 92.53 kg Nathan E Ball Work Phone: [facility] [employer] DO Work Phone: 03-07-2023 10:04-0400 Diastolic blood pressure 72 mm[Hg] Nathan E Ball Work Phone: [facility] [employer] DO Work Phone: 03-07-2023 10:04-0400 Heart rate 45 /min Nathan E Ball Work Phone: [facility] [employer] DO Work Phone: 03-07-2023 10:04-0400 Systolic blood pressure 144 mm[Hg] Nathan E Ball Work Phone: [facility] [employer] [address] DO Work Phone: 02-14-2023 11:15-0400 Body height 165.1 cm Nathan Ball Other [employer] Other 02-14-2023 11:15-0400 Body mass index (BMI) [Ratio] 32.61 kg/m2 Nathan Ball Other [employer] Other 02-14-2023 11:15-0400 Body weight 88.91 kg Nathan Ball Other [employer] Other 02-14-2023 11:15-0400 Diastolic blood pressure 72 mm[Hg] Nathan Ball Other [employer] Other 02-14-2023 11:15-0400 Respiratory rate 12 /min Nathan Ball Other [employer] Other 02-14-2023 11:15-0400 Systolic blood pressure 204 mm[Hg] Nathan Ball Other [employer] Other 02-02-2023 12:15-0400 Body height 165.1 cm Nathan Ball Other [employer] Other 02-02-2023 12:15-0400 Body mass index (BMI) [Ratio] 32.78 kg/m2 Nathan Ball Other [employer] Other 02-02-2023 12:15-0400 Body weight 89.36 kg Nathan Ball Other [employer] Other 02-02-2023 12:15-0400 Diastolic blood pressure 70 mm[Hg] Nathan Ball Other [employer] Other 02-02-2023 12:15-0400 Respiratory rate 12 /min Nathan Ball Other [employer] Other 02-02-2023 12:15-0400 Systolic blood pressure 201 mm[Hg] Nathan Ball Other [employer] Other 12-14-2022 10:00-0500 Body height 165.1 cm Nathan Ball Other [employer] Other 12-14-2022 10:00-0500 Body mass index (BMI) [Ratio] 32.53 kg/m2 Nathan Ball Other [employer] Other 12-14-2022 10:00-0500 Body weight 88.68 kg Nathan Ball Other [employer] Other 12-14-2022 10:00-0500 Diastolic blood pressure 70 mm[Hg] Nathan [email or web address] Other [employer] Other 12-14-2022 10:00-0500 Respiratory rate 12 /min Nathan [email or web address] Other [employer] Other 12-14-2022 10:00-0500 Systolic blood pressure 140 mm[Hg] Nathan [email or web address] Other [employer] Other 12-04-2022 13:25-0500 Body height 166.4 cm Luis Mckenzie MD Work Phone: [facility] 12-04-2022 13:25-0500 Body temperature 97.11 [degF] Luis Mckenzie MD Work Phone: [facility] 12-04-2022 13:25-0500 Body weight 90.36 kg Luis Mckenzie MD Work Phone: [facility] 12-04-2022 13:25-0500 Diastolic blood pressure 54 mm[Hg] Luis Mckenzie MD Work Phone: [facility] 12-04-2022 13:25-0500 Heart rate 63 /min Luis Mckenzie MD Work Phone: [facility] 12-04-2022 13:25-0500 Respiratory rate 16 /min Luis Mckenzie MD Work Phone: [facility] 12-04-2022 13:25-0500 SaO2% (BldA) [Mass fraction] 96 % Luis Mckenzie MD Work Phone: [facility] 12-04-2022 13:25-0500 Systolic blood pressure 167 mm[Hg] Luis Mckenzie MD Work Phone: [facility] 11-14-2022 15:00-0500 Body height 165.1 cm Nathan Ball Other [employer] Other 11-14-2022 15:00-0500 Body mass index (BMI) [Ratio] 32.53 kg/m2 Nathan Ball Other [employer] Other 11-14-2022 15:00-0500 Body weight 88.68 kg Nathan Ball Other [employer] Other 11-14-2022 15:00-0500 Diastolic blood pressure 72 mm[Hg] Nathan Ball Other [employer] Other 11-14-2022 15:00-0500 Respiratory rate 12 /min Nathan Ball Other [employer] Other 11-14-2022 15:00-0500 Systolic blood pressure 130 mm[Hg] Nathan Ball Other [employer] Other 05-29-2022 10:06-0400 Body height 166.4 cm Luis Mckenzie MD Work Phone: [facility] 05-29-2022 10:06-0400 Body temperature 97.59 [degF] Luis Mckenzie MD Work Phone: [facility] 05-29-2022 10:06-0400 Body weight 89.72 kg Luis Mckenzie MD Work Phone: [facility] 05-29-2022 10:06-0400 Diastolic blood pressure 50 mm[Hg] Luis Mckenzie MD Work Phone: [facility] 05-29-2022 10:06-0400 Heart rate 50 /min Luis Mckenzie MD Work Phone: [facility] 05-29-2022 10:06-0400 Respiratory rate 16 /min Luis Mckenzie MD Work Phone: [facility] 05-29-2022 10:06-0400 SaO2% (BldA) [Mass fraction] 96 % Luis Mckenzie MD Work Phone: [facility] 05-29-2022 10:06-0400 Systolic blood pressure 155 mm[Hg] Luis Mckenzie MD Work Phone: [facility] Encounters Encounter Date Encounter Type Care Provider Facility Start: 01-12-2025 End: 01-12-2025 Office outpatient visit 25 minutes [facility] PHARMACOGNOS[facility] Work Phone: [facility] Comment on above: BMI 33.0-33.9,adult (Primary Dx); Essential hypertension; Palpitations; ASHD (arteriosclerotic heart disease); Mixed hyperlipidemia Start: 01-12-2025 End: 01-12-2025 ambulatory [facility] Start: 12-29-2024 End: 12-29-2024 ambulatory Nathan Hathaway DO Work Phone: [facility] Work Phone: Start: 12-29-2024 End: 12-29-2024 Patient encounter procedure Nathan Ball DO Work Phone: [facility] Work Phone: Start: 12-18-2024 Non-patient / Non-visit Benjam in Ball DO [facility] Work Phone: Start: 12-16-2024 End: 12-16-2024 Patient encounter procedure Nathan Ball DO Work Phone: [facility] Work Phone: Start: 11-25-2024 End: 11-25-2024 Bamboo flowsheet Reyna Esparza MD Work Phone: [facility] Start: 11-25-2024 End: 11-25-2024 Bamboo flowsheet Reyna Esparza MD Work Phone: [facility] Start: 11-25-2024 End: 11-25-2024 Office outpatient new 45 minutes Reyna Esparza MD Work Phone: [facility] Comment on above: Thyroid nodule (CMS/ HCC) (Primary Dx) Start: 11-25-2024 End: 11-25-2024 ambulatory REYNA ESPARZA Not Available Start: 11-19-2024 ambulatory Nathan Ball DO Work Phone: [facility] Work Phone: Start: 11-19-2024 Non-patient / Non-visit Benjam in Ball DO [facility] Work Phone: Start: 11-17-2024 End: 11-17-2024 Admission to same day surgery center Nathan Ball DO Work Phone: [facility] Work Phone: Start: 11-17-2024 End: 11-17-2024 ambulatory Nathan Ball DO Work Phone: [facility] Work Phone: Start: 10-09-2024 End: 10-09-2024 Refnawaf Braxton COT Work Phone: [facility] Start: 10-08-2024 End: 10-08-2024 Office outpatient visit 25 minutes [facility] DO Work Phone: [facility] Comment on above: ASHD (arteriosclerot ic heart disease); Essential hypertension; BMI 33.0-33.9,adult; Former smoker; S/P PTCA (percutaneous transluminal coronary angioplasty); Mixed hyperlipidemia; Coronary arteriosclerosis after percutaneous transluminal coronary angioplasty (PTCA) Start: 10-08-2024 End: 10-08-2024 ambulatory [facility] Start: 09-12-2024 Non-patient / Non-visit Benjam in Ball DO Work Phone: [facility] Work Phone: Start: 09-11-2024 End: 09-11-2024 ambulatory [facility] Work Phone: Start: 09-11-2024 End: 09-11-2024 Patient encounter procedure [facility] Work Phone: Start: 09-04-2024 Non-patient / Non-visit [facility] Physician [facility] Work Phone: Start: 07-16-2024 End: 07-16-2024 ambulatory [facility] Work Phone: Start: 07-16-2024 End: 07-16-2024 Patient encounter procedure Critical [facility] Physician [facility] Work Phone: Start: 06-03-2024 End: 06-03-2024 ambulatory DO Nathan Ball Work Phone: [facility] Work Phone: Start: 06-03-2024 End: 06-03-2024 Patient encounter procedure DO Nathan Ball Work Phone: [facility] Physician [facility] Work Phone: Start: 05-20-2024 Non-patient / Non-visit DO Natalio pinzon Ball Work Phone: [facility] Work Phone: Start: 04-30-2024 Non-patient / Non-visit DO Natalio pinzon Ball Work Phone: Critical [facility] Physician [facility] Work Phone: Start: 04-28-2024 End: 04-28-2024 ambulatory FERCHO TSE Not Available Start: 04-21-2024 End: 04-21-2024 Office outpatient visit 15 minutes Holden Rosado PHARMACOGNOSIST-DRY MAN Work Phone: [facility] Comment on above: Essential hypertensi on (Primary Dx); ASHD (arteriosclerotic heart disease); Mixed hyperlipidemia; BMI 32.0-32.9,adult Start: 04-21-2024 End: 04-21-2024 ambulatory [facility] Start: 03-12-2024 End: 03-13-2024 ambulatory [facility] Start: 03-12-2024 End: 03-12-2024 Subsequent hospital visit by physician Laura Shabazz [facility] Comment on above: ASHD (arteriosclerot ic heart disease) Start: 03-05-2024 End: 03-05-2024 Patient encounter procedure DO Nathan Ball Work Phone: [facility] [employer] Work Phone: Start: 03-05-2024 End: 03-05-2024 ambulatory DO Nathan Ball Work Phone: [facility] Work Phone: Start: 03-05-2024 End: 03-05-2024 Office outpatient visit 25 minutes [facility] PHARMACOGNOSIST-DRY MAN Work Phone: [facility] Comment on above: ASHD (arteriosclerot ic heart disease) (Primary Dx); Essential hypertension; Mixed hyperlipidemia; BMI 32.0-32.9,adult Start: 03-05-2024 End: 03-05-2024 ambulatory [facility] Start: 02-27-2024 End: 02-27-2024 Patient encounter procedure DO Nathan Ball Work Phone: [facility] Work Phone: Start: 02-21-2024 Non-patient / Non-visit DO Natalio pinzon Ball Work Phone: [facility] Physician [facility] Work Phone: Start: 02-20-2024 Non-patient / Non-visit DO Natalio alberta Ball Work Phone: [facility] Work Phone: Start: 02-19-2024 Non-patient / Non-visit DO Natalio alberta Ball Work Phone: [facility] Work Phone: Start: 02-18-2024 Non-patient / Non-visit DO Natalio Hathaway Work Phone: [facility] Work Phone: Start: 02-13-2024 End: 02-13-2024 ambulatory [facility] Work Phone: Start: 02-13-2024 End: 02-13-2024 Patient encounter procedure [facility] Work Phone: Start: 02-02-2024 Non-patient / Non-visit [facility] Work Phone: Start: 02-01-2024 End: 02-01-2024 ambulatory [facility] Work Phone: Start: 02-01-2024 End: 02-01-2024 Patient encounter procedure [facility] Work Phone: Start: 01-04-2024 End: 01-04-2024 ambulatory Nathan Hathaway Other [employer] Other Start: 01-04-2024 Telephone encounter Nathan Hathaway ZHAO [facility], [facility] Start: 12-18-2023 Non-patient / Non-visit [facility] Work Phone: Start: 11-27-2023 End: 11-27-2023 ambulatory Nathan Hathaway Other [employer] Other Start: 11-27-2023 Telephone encounter Nathan Hathaway ZHAO [facility] Start: 11-05-2023 End: 11-05-2023 ambulatory NATHAN Chinyere HATHAWAY Facility:[facility] Start: 11-02-2023 End: 11-02-2023 ambulatory Nathan Hathaway Other [employer] Other Start: 11-02-2023 Office outpatient vi sit 25 minutes Nathan Ball [facility] Start: 10-02-2023 End: 10-02-2023 ambulatory Nathan Ball Other [employer] Other Start: 10-02-2023 Office outpatient vi sit 25 minutes Nathan Ball [facility] Start: 09-26-2023 End: 09-26-2023 ambulatory Nathan Ball Other [employer] Other Start: 09-26-2023 Telephone encounter Nathan Ball [facility] Start: 09-21-2023 End: 09-21-2023 ambulatory Nathan Ball Other [employer] Other Start: 09-21-2023 Telephone encounter Nathan Ball [facility] Start: 2023 End: 2023 ambulatory Nathan Ball Other [employer] Other Start: 2023 Telephone encounter Nathan Ball [facility] Start: 09-13-2023 End: 09-13-2023 ambulatory Nathan Ball Other [employer] Other Start: 09-13-2023 Telephone encounter Nathan Ball [facility] Start: 09-11-2023 End: 09-11-2023 ambulatory Nathan Ball Other [employer] Other Start: 09-11-2023 Office outpatient vi sit 15 minutes Nathan Ball [facility] Start: 08-16-2023 End: 08-16-2023 ambulatory Nathan Ball Other [employer] Other Start: 08-16-2023 Telephone encounter Nathan Ball [facility] Start: 07-31-2023 End: 07-31-2023 ambulatory Nathan Ball Other [employer] Other Start: 07-31-2023 Telephone encounter Nathan Ball [facility] Start: 07-30-2023 End: 07-30-2023 ambulatory Nathan Hathaway Other [employer] Other Start: 07-30-2023 Telephone encounter Nathan Hathaway [facility] Start: 07-19-2023 End: 07-19-2023 ambulatory Nathan Hathaway Other [employer] Other Start: 07-19-2023 Telephone encounter Nathan Hathaway [facility] Start: 07-18-2023 End: 07-18-2023 ambulatory Nathan Hathaway Other [employer] Other Start: 07-18-2023 Telephone encounter Nathan Hathaway [facility] Start: 07-17-2023 End: 07-17-2023 ambulatory Nathan Hathaway Other [employer] Other Start: 07-17-2023 Nursing evaluation o f patient and report Nathan Hathaway [facility] Start: 06-28-2023 End: 06-28-2023 ambulatory Nathan Hathaway Other [employer] Other Start: 06-28-2023 Telephone encounter Nathan Hathaway [facility] Start: 06-25-2023 End: 06-25-2023 ambulatory Nathan Hathaway Other [employer] Other Start: 06-25-2023 Telephone encounter Nathan Hathaway [facility] Start: 06-21-2023 End: 06-21-2023 ambulatory Nathan Hathaway Other [employer] Other Start: 06-21-2023 Telephone encounter Nathan Hathaway [facility] Start: 06-19-2023 End: 06-19-2023 ambulatory Nathan Ball Other [employer] Other Start: 06-19-2023 Telephone encounter Nathan Hathaway [facility] Start: 06-18-2023 End: 06-18-2023 ambulatory Nathan Ball Other [employer] Other Start: 06-18-2023 Telephone encounter Nathan [facility] Start: 06-15-2023 End: 06-15-2023 ambulatory Nathan Hathaway Other [employer] Other Start: 06-15-2023 Telephone encounter Nathan [facility] Start: 06-08-2023 End: 06-08-2023 ambulatory Nathan Hathaway Other [employer] Other Start: 06-08-2023 Office outpatient vi sit 15 minutes Nathan Hathaway [facility] Start: 06-06-2023 Telephone encounter Juan Rico Hematology/Oncology Comment on above: Results Start: 06-04-2023 End: 06-04-2023 ambulatory Luis Mckenzie MD Work Phone: [employer] Other Comment on above: Abnormal SPEP (Prima ry Dx); Anemia, unspecified type; Neuropathy - (NOS); Heart disease Start: 06-04-2023 End: 06-04-2023 Patient encounter procedure Luis Mckenzie MD Work Phone: [employer] Start: 06-04-2023 Telephone encounter Nathan [facility] Start: 06-01-2023 End: 06-01-2023 ambulatory Nathan Hathaway Other [employer] Other Start: 06-01-2023 Telephone encounter [facility] Start: 05-28-2023 End: 05-28-2023 ambulatory NATHAN HATHAWAY Facility:[facility] Start: 05-25-2023 End: 05-25-2023 ambulatory Nathan Hathaway Other [employer] Other Start: 05-25-2023 Transitional care julito stark srvc 14 day discharge Nathan Hathaway [facility] Start: 05-17-2023 End: 05-18-2023 Evaluation and management of inpatient DO Nathan Ball Work Phone: [facility] Work Phone: Start: 05-17-2023 End: 05-18-2023 observation encounter DO Nathan Ball Work Phone: [facility] Work Phone: Start: 05-16-2023 End: 05-16-2023 ambulatory Nathan Ball Other [employer] Other Start: 05-16-2023 Office outpatient vi sit 25 minutes Nathan Ball [facility] Start: 05-09-2023 End: 05-09-2023 ambulatory Nathan Ball Other [employer] Other Start: 05-09-2023 Office outpatient vi sit 25 minutes Nathan Ball [facility] Start: 05-09-2023 Telephone encounter Nathan E Ball Work Phone: [facility] [address] DO Work Phone: Start: 04-26-2023 End: 04-26-2023 ambulatory Nathan Ball Other [employer] Other Start: 04-26-2023 Office outpatient vi sit 25 minutes Nathan Ball [facility] Start: 04-26-2023 Telephone encounter Nathan Ball [facility] Start: 04-18-2023 End: 04-18-2023 ambulatory Nathan Ball Other [employer] Other Start: 04-18-2023 Office outpatient vi sit 25 minutes Nathan Ball [facility] Start: 04-18-2023 Telephone encounter Nathan Ball [facility] Start: 03-27-2023 End: 03-27-2023 ambulatory Nathan Ball Other [employer] Other Start: 03-27-2023 Telephone encounter Nathan Ball [facility] Start: 03-15-2023 End: 03-15-2023 ambulatory Nathan Ball [address] [facility] [employer] Other Start: 03-15-2023 Office outpatient vi sit 25 minutes Nathan Hathaway [facility] Start: 03-09-2023 End: 03-09-[address] [facility] [employer] Other Start: 03-09-2023 Telephone encounter Nathan Hathaway FP [facility] Start: 03-09-2023 SURGNONUH, Provider: Edinson Perry, Status: Pen, Time: 10:00 AM Nathan Whitlock Ball Work Phone: [facility] [address] DO Work Phone: Start: 03-09-2023 End: 03-09-2023 Admission to same day surgery center DO Nathan Hathaway Work Phone: [facility] Work Phone: Start: 03-08-2023 End: 03-08-2023 ambulatory DO Nathan Hathaway Work Phone: [facility] Work Phone: Start: 03-08-2023 End: 03-08-2023 Patient encounter procedure DO Nathan Hathaway Work Phone: [facility] [employer] Work Phone: Start: 03-07-2023 Office consultation new/estab patient 80 min Nathan Hathaway Work Phone: [facility] [address] DO Work Phone: Start: 03-07-[address] Edinson Perry Facility: Start: 03-05-2023 End: 03-05-2023 ambulatory Nathan Hathaway Other [employer] Other Start: 03-05-2023 Telephone encounter Nathan Hathaway ZHAO Hathaway [facility] Start: 03-01-2023 End: 03-02-[address] NATHAN HATHAWAY Facility: Start: 02-27-2023 End: 02-27-2023 ambulatory Ntahan Hathaway Other [employer] Other Start: 02-27-2023 Telephone encounter Nathan [facility] Start: 02-20-2023 End: 02-20-2023 ambulatory Nathan Hathaway Other [employer] Other Start: 02-20-2023 Telephone encounter Nathan Ball [facility] Start: 02-14-2023 End: 02-14-2023 ambulatory Nathan Isabela Other [employer] Other Start: 02-14-2023 Office outpatient vi sit 25 minutes Nathan Ball [facility] Start: 02-14-2023 Telephone encounter Nathan Ball [facility] Start: 02-11-2023 End: 02-11-2023 ambulatory Nathan Ball Other [employer] Other Start: 02-11-2023 Telephone encounter Nathan Hathaway [facility] Start: 02-08-2023 End: 02-09-2023 Evaluation and management of inpatient DR NATHAN HATHAWAY Facility:[facility] Start: 02-02-2023 End: 02-02-2023 ambulatory Nathan Hathaway Other [employer] Other Start: 02-02-2023 Office outpatient vi sit 25 minutes Nathan Hathaway [facility] Start: 01-08-2023 End: 01-09-[address] NATHAN HATHAWAY Facility:[facility] Start: 12-21-2022 End: 12-21-2022 ambulatory Nathan Hathaway Other [employer] Other Start: 12-21-2022 Telephone encounter Nathan Hathaway [facility] Start: 12-20-2022 End: 12-20-2022 ambulatory Nathan Hathaway Other [employer] Other Start: 12-20-2022 Telephone encounter Nathan Hathaway [facility] Start: 12-14-2022 End: 12-14-2022 ambulatory Nathan Hathaway Other [employer] Other Start: 12-14-2022 Patient encounter procedure Nathan Hathaway [facility] Start: 12-04-2022 End: 12-04-2022 ambulatory NATHAN HATHAWAY Facility:[facility] Start: 12-04-2022 End: 12-04-2022 ambulatory Luis Mckenzie MD Work Phone: Hematology/Oncology Comment on above: Abnormal SPEP (Prima ry Dx); Neuropathy - (NOS); Lung nodules Start: 12-04-2022 End: 12-04-2022 Patient encounter procedure Luis Mckenzie MD Work Phone: [place] Start: 11-27-2022 End: 11-27-2022 ambulatory LUIS MCKENZIE Facility:[facility] Start: 11-23-2022 End: 11-23-2022 ambulatory Nathan Hathaway Other [employer] Other Start: 11-23-2022 Telephone encounter Nathan Hathaway [facility] Start: 11-16-2022 End: 11-17-[address] NATHAN HATHAWAY Facility:[facility] Start: 11-14-2022 End: 11-14-2022 ambulatory Nathan Hathaway Other [employer] Other Start: 11-14-2022 Office outpatient vi sit 25 minutes Nathan Hathaway [facility] Start: 09-11-2022 End: 09-12-[address] [...] 12-13-2021 Adult health examination Lauri Hathaway Other [employer] Other Procedures Date Procedure Procedure Detail Performing Clinician Start: 11-17-2024 Aspiration Nathan B all DO Work Phone: Start: 03-12-2024 NUCLEAR STRESS TEST DAYANA ROSADO Start: 03-12-2024 Cv strs tst xers&/or rx cont ecg trcg only Holden Rosado PHARMACOGNOSIST-DRY MAN Work Phone: Start: 10-17-2023 History of placement of stent for coronary artery disease S/P coronary artery stent placement Holden Rosado PHARMACOGNOSIST-DRY MAN Work Phone: Start: 05-17-2023 CT angiography of thorax DO Nathan Hathaway Work Phone: Start: 05-17-2023 Duplex scan of lower limb veins DO Nathan Hathaway Work Phone: Start: 03-09-2023 CL Ivus Initial Vessel DO Nathan Hathaway Work Phone: Start: 03-09-2023 CL LHC & COR Angio DO B enalberta Hathaway Work Phone: Start: 03-09-2023 CL Stent 1st Vessel LAD VALERI DO Nathan Hathaway Work Phone: Start: 03-09-2023 CL Stent 1st Vessel RCA VALERI DO Nathan Hathaway Work Phone: Start: 08-28-2022 Ct abdomen & [...] Detail Author Start: 11-05-2026 [facility] Start: 06-04-2026 DIABETES SCREEN DIABETES SCREEN [facility] Start: 11-27-2025 [facility]ABET[facility]CRE[facility] Start: 10-27-2025 End: 10-27-2025 Patient encounter procedure 10/27/2025 2:10 PM EST Office Visit [facility] [address] [facility] [address] [place] [address] Edinson Perry DO [address] [facility] [address] [place] [address] [facility] Start: 08-24-2025 DIABETES SCREEN DIABETES SCREEN [facility] Start: 05-22-2025 DIABETES SCREEN [facility] Start: 04-29-2025 End: 04-29-2025 Patient encounter procedure 04/29/2025 9:30 AM EDT Office Visit [facility] [address] [place] [id number] Fercho Tse DO [address] [place] [address] [facility] Start: 03-17-2025 End: 03-17-2025 Patient encounter procedure 03/17/2025 10:45 AM EDT [facility]ointment [facility] [address] [place] [address] [facility] Start: 01-26-2025 End: 01-26-2025 Professional / ancillary services management 01/26/2025 3:00 PM EDT Ancillary Procedure [facility] [address] [place] [address] [facility] Start: 01-12-2025 End: 01-12-2026 Holter monitor study Holter Or Event [employer] Cardiac Services Routine Palpitations Expected: 01/12/2025 (Approximate), Expires: 01/12/2026 [facility] Service Area Work Phone: Comment on above: Expected: 01/12/2025 (Approximate), Expires: 01/12/2026 Start: 01-12-2025 End: 01-12-2027 US Heart Transthoracic Transthoracic Echo Complete Echocardiography Routine Essential hypertension Palpitations Expected: 01/12/2025 (Approximate), Expires: 01/12/2027 [facility] Work Phone: Comment on above: Expected: 01/12/2025 (Approximate), Expires: 01/12/2027 Start: 11-25-2024 End: 11-25-2024 Patient encounter procedure 11/25/2024 2:00 PM EST Office Visit [facility] [address] [facility] [address] [place] [id number] Reyna Esparza MD [address] [facility] [address] [place] [address] Arrived [facility] Comment on above: Arrived Start: 11-19-2024 Patient referral [facility] Work Phone: Start: 11-17-2024 [facility] Start: 11-17-2024 [facility] Start: 10-08-2024 End: 10-08-2024 Patient encounter procedure 10/08/2024 10:40 AM EST Office Visit [facility] [address] [place] [address] Edinson Perry, [address] [place] [address] [facility] Start: 06-29-2024 Covid-19 Vaccine ( season) Covid-19 Vaccine () [facility] Start: 06-29-2024 Influenza vaccination [facility] Start: 04-21-2024 End: 04-21-2025 Basic metabolic 2000 panel - Serum or Plasma Basic Metabolic Panel Lab Routine ASHD (arteriosclerotic heart disease) Expected: 04/21/2024 (Approximate), Expires: 04/21/2025 [facility] Service Area Work Phone: Comment on above: Expected: 04/21/2024 (Approximate), Expires: 04/21/2025 Start: 04-21-2024 End: 04-21-2024 Patient encounter procedure 04/21/2024 10:30 AM EDT Office Visit [facility] [address] [facility] [address] [place] [address] Holden Rosado, PHARMACOGNOSIST-DRY MAN [address] [facility] [address] [place] [address] [facility] Start: 03-12-2024 End: 03-12-2024 Patient encounter procedure 03/12/2024 10:15 AM EDT Appointment [facility] [address] [facility] [address] [place] [address] [facility] Start: 03-12-2024 End: 03-12-2024 Patient encounter procedure [facility] Start: 03-05-2024 End: 03-05-2025 Basic metabolic 2000 panel - Serum or Plasma Basic Metabolic Panel Lab Routine Essential hypertension Expected: 03/05/2024 (Approximate), Expires: 03/05/2025 [facility] Work Phone: Comment on above: Expected: 03/05/2024 (Approximate), Expires: 03/05/2025 Start: 03-05-2024 End: 03-05-2026 NM Heart Perfusion W stress and W radionuclide IV Nuclear Stress Test Cardiac Nuclear Medicine Routine ASHD (arteriosclerotic heart disease) Expected: 03/05/2024 (Approximate), Expires: 03/05/2026 [facility] Service Area Work Phone: Comment on above: Expected: 03/05/2024 (Approximate), Expires: 03/05/2026 Start: 10-29-2023 Advance Directive Discussion Advance Directive Discussion [facility] Start: 09-18-2023 FUV, Provider: Edinson Perry, Status: Pen, Time: 11:20 AM FUV, Provider: Edinson Perry, Status: Pen, Time: 11:20 AM [facility] [employer] [address] DO Work Phone: Start: 06-29-2023 COVID-19 Vaccine ( season) COVID-19 Vaccine () [facility] Start: 06-29-2023 Influenza vaccination INFLUENZA (#1) [facility] Start: 05-29-2023 Adult depression screening assessment DEPRESSION SCREENING [facility] Start: 05-29-2023 FUV, Provider: Edinson Perry, Status: Pen, Time: 10:20 AM FUV, Provider: Edinson Perry, Status: Pen, Time: 10:20 AM [facility] DO Work Phone: Start: 05-18-2023 [facility] Start: 05-17-2023 Hospital admission [facility] Start: 03-09-2023 [facility] Start: 01-13-2023 COVID-19 VACCINE (6 - Pfizer series) COVID-19 VACCINE (6 - Pfizer series) [facility] Start: 11-22-2022 Adult depression screening assessment DEPRESSION SCREENING [facility] Start: 10-29-2022 ADVANCE DIRECTIVE DISCUSSION ADVANCE DIRECTIVE DISCUSSION [facility] Start: 10-29-2022 DEPRESSION ASSESSMENT DEPRESSION ASS ESSMENT [facility] Start: 10-13-2022 COVID-19 Vaccine (3 - Pfizer risk series) COVID-19 Vaccine (3 - Pfizer risk series) [facility] Start: 06-29-2022 Influenza vaccination INFLUENZA (#1) [facility] Start: 03-25-2022 COVID-19 VACCINE (5 - Booster for Pfizer series) COVID-19 VACCINE (5 - Booster for Pfizer series) [facility] Start: 10-29-2021 ADVANCE DIRECTIVE DISCUSSION ADVANCE DIRECTIVE DISCUSSION [facility] Start: 10-29-2021 DEPRESSION ASSESSMENT DEPRESSION ASS ESSMENT [facility] Start: 09-16-2021 Shingrix Vaccine (3 of 3) Shingrix Vaccine (3 of 3) [facility] Start: 09-16-2021 Zoster Vaccines (2 o f 2) Zoster Vaccines (2 of 2) [facility] Start: 07-16-2021 SHINGRIX VACCINE (2 of 2) SHINGRIX VACCINE (2 of 2) [facility] Start: 2017 RSV High Risk: (Elde rly (60+) or Population) (1 - 1-dose 75+ series) RSV High Risk: (Elderly (60+) or Population) (1 - 1-dose 75+ series) [facility] Start: 2017 RSV Vaccine (1 - 1-d ose 75+ series) RSV Vaccine (1 - 1-dose 75+ series) [facility] Start: 07-17-2014 DTaP/Tdap/Td Vaccine s (1 - Tdap) DTaP/Tdap/Td Vaccines (1 - Tdap) [facility] Start: 07-17-2014 Urine microalbumin profile DTaP,Tdap,Td Vaccine (1 - Tdap) [facility] Start: 2007 BONE DENSITY BONE DENSITY [facility] Start: 2007 PNEUMOCOCCAL: 65+ (1 - PCV) PNEUMOCOCCAL: 65+ (1 - PCV) [facility] Start: 2007 Screening for osteoporosis Bone Density Screening [facility] Start: 2002 RSV patient s and/or patients aged 60+ years (1 - 1-dose 60+ series) RSV patients and/or patients aged 60+ years (1 - 1-dose 60+ series) [facility] Start: 1964 DTaP/Tdap/Td Vaccine s (1 - Tdap) DTaP/Tdap/Td Vaccines (1 - Tdap) [facility] Start: 1961 Urine microalbumin profile DTAP,TDAP,TD (1 - Tdap) [facility] Start: 1960 Anxiety Screening Anxiety Screening [facility] Start: 1960 Depression Screening [facility] Scre [facility]ing [facility] [facility] Start: 1960 Diabetes mellitus screening Diabetes Screening [facility] Start: 1942 Lipid panel Lipid Panel [facility] Start: 1940 Medicare Annual Wellness Visit Medicare Annual Wellness Visit (AWV) [facility] Start: 1942 Screening for osteoporosis Bone Density Scan [facility] Comprehensive metabo lic 2000 panel - Serum or Plasma [facility] End: 06-28-2023 Ct abdomen & pelvis w/contrast material CT ABD/PEL W IVCON Radiology Routine Disorder of adrenal gland (HCC) 1 Occurrences starting 05/29/2022 until 06/28/2023 [facility] Work Phone: Comment on above: 1 Occurrences starti ng 05/29/2022 until 06/28/2023 End: 06-28-2023 CT CHEST W IVCON CT CHEST W IVCON Radiology Routine Lung nodules 1 Occurrences starting 05/29/2022 until 06/28/2023 [facility] Work Phone: Comment on above: 1 Occurrences starti ng 05/29/2022 until 06/28/2023 Patient Education [facility] Work Phone: Patient referral [facility] Work Phone: [facility] Immunizations Immunization Date Immunization Notes Care Provider Fa cility 07-16-2024 influenza, high dose seasonal, preservative-free [facility] 08-06-2023 influenza virus vaccine, unspecified formulation [facility] 08-06-2023 influenza, high dose seasonal, preservative-free Nathan Hathaway Other [employer] Other 09-15-2022 COVID-19 Pfizer (Pediatric) Nathan Hathaway Other [facility] 09-15-2022 Pfizer COVID-19 Vac Bivalent 30 MCG/0.3ML Intramuscular Suspension Nathan Hathaway Work Phone: [facility] 08-11-2022 influenza virus vaccine, split virus (incl. purified surface antigen) Nathan Hathaway Other [employer] Other 08-11-2022 influenza virus vaccine, unspecified formulation [facility] 01-28-2022 COVID-19 mRNA, Comirnaty (Pfizer) DO Nathan Hathaway Work Phone: [facility] 01-28-2022 COVID-19 Pfizer Nathan michelle Other [facility] 07-30-2021 COVID-19 vaccine, ag e 12+ yr ([facility]) Luis Mckenzie MD Work Phone: [facility] 07-22-2021 zoster vaccine, live Benjami n Isabela Other [facility] 07-19-2021 influenza, high-dose , quadrivalent vaccine (FLUZONE HIGH DOSE QUADRIVALENT) Luis Mckenzie MD Work Phone: [facility] 07-18-2021 influenza virus vaccine, split virus (incl. purified surface antigen) Nathan Hathaway Other [employer] [facility] [employer] Other 07-18-2021 influenza virus vaccine, unspecified formulation [facility] 05-21-2021 zoster vaccine recombinant Luis Mckenzie MD Work Phone: [facility] 05-21-2021 zoster vaccine, live Benjami n Isabela Other [facility] 12-18-2020 COVID-19 vaccine, ag e 12+ yr ([employer] [facility]) Luis Mckenzie MD Work Phone: [facility] 11-27-2020 COVID-19 Vaccine Moderna - Documentation Purposes Only Nathan Hathaway Other [facility] 11-27-2020 COVID-19 vaccine, ag e 12+ yr ([employer]; to (do) Centers - PURPLE TOP) Luis Mckenzie MD Work Phone: [facility] 08-11-2020 influenza virus vaccine, split virus (incl. purified surface antigen) Nathan Hathaway Other [facility] [employer] Other 08-11-2020 influenza virus vaccine, unspecified formulation [facility] 07-09-2019 AS03 adjuvant Arrival Radiol ogy Work Phone: [facility] 07-09-2019 Seasonal trivalent influenza vaccine, adjuvanted, preservative free Luis Mckenzie MD Work Phone: [facility] 08-13-2018 AS03 adjuvant Arrival Radiol ogy Work Phone: [facility] 08-13-2018 influenza virus vaccine, split virus (incl. purified surface antigen) Nathan Hathaway Other [facility] [employer] Other 08-13-2018 influenza virus vaccine, unspecified formulation [facility] 08-13-2018 Seasonal trivalent influenza vaccine, adjuvanted, preservative free Luis Mckenzie MD Work Phone: [facility] 08-03-2017 influenza virus vaccine, split virus (incl. purified surface antigen) Nathan Hathaway Other [facility] [employer] Other 08-03-2017 influenza virus vaccine, unspecified formulation [facility] 08-03-2017 influenza, high dose seasonal, preservative-free Luis Mckenzie MD Work Phone: [facility] 07-13-2016 influenza virus vaccine, split virus (incl. purified surface antigen) Nathan Hathaway Other [facility] [employer] Other 07-13-2016 influenza virus vaccine, unspecified formulation [facility] 09-13-2015 pneumococcal conjuga te vaccine, 13 valent Nathan Hathaway Other [facility] 08-17-2015 influenza virus vaccine, split virus (incl. purified surface antigen) Nathan Hathaway Other [employer] Other 08-17-2015 influenza virus vaccine, unspecified formulation [facility] 07-16-2014 tetanus and diphther ia toxoids, adsorbed, preservative free, for adult use (5 Lf of tetanus toxoid and 2 Lf of diphtheria toxoid) Nathan Hathaway Other [facility] 07-09-2013 tetanus and diphther ia toxoids, adsorbed, preservative free, for adult use (5 Lf of tetanus toxoid and 2 Lf of diphtheria toxoid) Nathan Hathaway Other [facility] 08-11-2010 pneumococcal polysaccharide vaccine, 23 valent Nathan Hathaway Other [facility] Payers Date Payer Category Payer Medicare supplementa l policy (as second payer) A[employer] [id number] 2022 Unknown 2020 Private Health Insurance [facility] AARP SUPPLEMENT [id number] 2020-Present [phone] [address] [place] [address] Indemnity [id number] 2020 Private Health Insurance [id number] 2007 Medicare MEDICARE MEDICAR E A AND B [id number] 2007-Present [phone] [address] [address] [place] [address] Medicare [id number] 2007 Medicare [id number]. [id number] 1959 Medicare [id number] 2.16.840.1.502071.19 1959 Unknown [id number] 2.16.840.1.301586.19 1942 Unknown [id number] 2.16.840.1.134517.3.579. 2.593 1942 Unknown [id number] 2.16.840.1.251893.3.579. 2.593 1942 Unknown [id number] 2.16.840.1.159954.3.579. 2.593 1942 Unknown [id number] 2.16.840.1.104386.3.579. 2.593 1942 Unknown [id number] 2.16.840.1.679496.3.579. 2.593 1942 Unknown [id number] 2.16.840.1.705112.3.579. 2.593 1942 Unknown [id number] 2.16.840.1.993952.3.579. 2.593 1942 Unknown [id number] 2.16.840.1.722571.3.579. 2.356 1942 Unknown [id number] 2.16.840.1.328641.3.579. 2.356 1942 Unknown [id number] 2.16.840.1.624974.3.579. 2.1246 1942 Unknown [id number] 2.16.840.1.174218.3.579. 2.1246 1942 Unknown [id number] 2.16.840.1.416955.3.579. 2.1246 1942 Unknown [id number] 2.16.840.1.281944.3.579. 2.1246 1942 Unknown [id number] 2.16.840.1.777479.3.579. 2.1246 1942 Unknown [id number] 2.16.840.1.770113.3.579. 2.1259 1942 Unknown [id number] 2.16.840.1.282787.3.579. 2.1259 1942 Unknown [id number] 2.16.840.1.508257.3.579. 2.1244 1942 Unknown [id number] 2.16.840.1.409380.3.579. 2.4 1942 Unknown [id number] 2.16.840.1.330356.3.579. 2.1244 1942 Unknown [id number] 2.16.840.1.905597.3.579. 2.1244 Medicare Medicare Outpatient [id number] [id number] Unknown [id number] Social History Date Type Detail Facility Start: 08-01-2021 End: 03-05-2024 Tobacco smoking status VAIS Ex-smoker [facility] End: 10-29-1992 History of tobacco use Cigarette Smoker [facility] Start: 08-01-2021 End: 03-05-2024 Tobacco use and exposure Smokeless tobacco non-user [facility] Start: 1940 Sex Assigned At Not on file [facility] Start: 05-12-2022 End: 01-12-2025 Exposure to SARS-CoV-2 (event) Not sure [facility] End: 10-29-1992 History of tobacco use Current smoker [facility] Start: 06-04-2023 End: 01-12-2025 Sex Assigned At [facility] Start: 06-04-2023 End: 01-12-2025 No illicit drug use No illicit drug use [facility] Comment on above: 2 coffees in am and 1 coffee at hs; 1997; Start: 1940 Sex Assigned At Female F [facility] Start: 06-04-2023 Alcohol intake Ex-drinker (finding) [facility] Adult Depression Screening Assessment 0 [facility] Start: 12-18-2023 Tobacco smoking stat us NHIS Never smoked tobacco (finding) [facility] Start: 03-05-2024 End: 01-12-2025 Alcoholic beverage intake Lifetime non-drinker (finding) [facility] Work Phone: Start: 09-11-2024 End: 12-29-2024 Sex Female (finding) [facility] Medical Equipment Procedure Code Equipment Code Equipment [...] Facility 05-18-2023 Functional status Patient at Baseline [facility] Work Phone: 03-09-2023 Functional status Patient at Baseline [facility] Work Phone: Mental Status Date Assessment Result Facility 05-18-2023 Cognitive function Cognitive Sta tus Patient at Baseline [facility] Work Phone: 03-09-2023 Cognitive function Cognitive Sta tus Patient at Baseline [facility] Work Phone: Clinical Notes 05-29-2022 to 01-12-2025 Assessment & Plan Note - CINTIA Gallego - 01/12/2025 3:48 PM EDTAssessment & Plan Note - CINTIA Gallego - 01/12/2025 3:48 PM EDTPatient Instructions Note Date & Type Note Facility 01-12-2025 Evaluation + Plan note Associated Problem(s): Cardiac and Vasculature January 2024 TTE LVEF greater than 55% Biatrial enlargement mild [facility] Work Phone: 01-12-2025 Miscellaneous Notes Associated Problem(s): Cardiac and Vasculature January 2024 TTE LVEF greater than 55% Biatrial enlargement mild Associated Problem(s): Hyperlipidemia High intensity statin January 2024 HDL 42, cholesterol 158 Associated Problem(s): ASHD (arteriosclerotic heart disease) March 09, 2023 Mid/proximal RCA PCI/[place] 4x15mm & 4x18mm Proximal diagonal PCI/[place]ie 2.5 x 18 mm LAD 10% Circumflex normal LVEF 65% February 2024 MPI ischemia, EF 88% Current daily activity at 4 METS without concerning symptoms Associated Problem(s): Palpitations Reports fairly daily episodes of hearing my heart thumping going into my ears No prior documented A-fib or arrhythmia. Was taken off of carvedilol January 2024 hospitalization due to bradycardia Associated Problem(s): Essential hypertension Optimal in office documented in this encounter [facility] Work Phone: 01-12-2025 Evaluation + Plan note Associated Problem(s): Hyperlipidemia High intensity statin January 2024 HDL 42, cholesterol 158 [facility] Work Phone: 01-12-2025 Evaluation + Plan note Associated Problem(s): ASHD (arteriosclerotic heart disease) March 09, 2023 Mid/proximal RCA PCI/[place] 4x15mm & 4x18mm Proximal diagonal PCI/[place] 2.5 x 18 mm LAD 10% Circumflex normal LVEF 65% February 2024 MPI ischemia, EF 88% Current daily activity at 4 METS without concerning symptoms [facility] Work Phone: 01-12-2025 Evaluation + Plan note Associated Problem(s): Palpitations Reports fairly daily episodes of hearing my heart thumping going into my ears No prior documented A-fib or arrhythmia. Was taken off of carvedilol January 2024 hospitalization due to bradycardia [facility] Work Phone: 01-12-2025 Evaluation + Plan note Associated Problem(s): Essential hypertension Optimal in office [facility] Work Phone: 01-12-2025 History of Presen t illness Narrative Chief Complaint My legs are swelling up and I am having palpitations Reason for Visit 3-month follow-up. Patient presents to the office today for outpatient follow-up for hypertension management and medication change. Last evaluated in clinic by Dr. Perry September 2024. At that time, discontinued Entresto and initiated on valsartan. Repeat potassium 4.1, creatinine 1.5. Patient has been compliant with changes. Presents today ambulatory with steady gait. Accompanied by daughter. Patient denies any hospitalizations or significant changes to interval medical history since last office follow-up. History of Present Illness Patient is a very pleasant 84-year-old female who presents today for hypertension management. She voices concerns regarding increasing lower extremity edema and frequent palpitations. She is utilizing compression stockings and is actually maintained on Lasix. Upon questioning edema is clearly dependent in nature. She reports palpitations where she can feel her heart thumping and beating and occasionally it will radiate up into her neck. This seems to happen on an almost daily basis. Denies dizziness or lightheadedness. From an activity standpoint she goes up and down steps to the laundry on a regular basis, does housework and goes to the grocery store. She pushes the cart through the grocery store. She is unable to recall her prior PCI symptom (did not have NSTEMI it was noted on abnormal stress test). She complains of dyspnea on exertion for approximately 3 months with activity like rushing to the garage or going outside in the cold. Her PCP started her on albuterol inhaler and does not seem to have any type of benefit. She is an extremely difficult historian. Does agree to complete Holter monitor because we do not miss any atrial fibrillation. Otherwise in regards to this dyspnea on exertion over the last 3 months we will recheck echo for LVH, diastolic dysfunction and LVEF. Her prior beta-humaira was discontinued due to bradycardia. If it the Holter average heart rate is okay may need to consider resuming. Patient reports that overall has no complaint(s) of chest pain, chest pressure/discomfort, claudication, exertional chest pressure/discomfort, fatigue, irregular heart beat, and lower extremity edema Daily activity: 4 METs Denies any change in exercise capacity or functional tolerance since last office visit. The importance of secondary prevention reviewed: HTN: Optimal HLD: Treated DM: Denies Smoker: Denies BMI: Reviewed the merits of healthy lifestyle choices on overall cardiovascular health. She is now 20 months outside of PCI. Although her med list reports aspirin and Plavix she discontinued baby aspirin a couple months ago due to excessive bruisability. Will continue Plavix only. Review of Systems Cardiovascular: Positive for dyspnea on exertion and palpitations. Negative for chest pain, irregular heartbeat, leg swelling, near-syncope, orthopnea, paroxysmal nocturnal dyspnea and syncope. Visit Vitals BP 124/60 (BP Location: Left arm, Patient Position: Sitting) Pulse 60 Ht 1.651 m (5' 5 ) Wt 90.7 kg (200 lb) BMI 33.28 kg/m Smoking Status Former BSA 2.04 m Physical Exam Vitals and nursing note [...] Medications Medication Instructions ALPRAZolam (NIRAVAM) 0.25 mg, Nightly PRN clopidogrel (PLAVIX) 75 mg, oral, Daily furosemide (LASIX) 20 mg, oral, Daily gabapentin (NEURONTIN) 100 mg, 2 times daily NIFEdipine ER (ADALAT CC) 30 mg, Daily pantoprazole (PROTONIX) 40 mg, Daily before breakfast potassium chloride CR 10 mEq ER tablet 10 mEq, Daily rosuvastatin (CRESTOR) 40 mg, oral, Daily Symbicort 160-4.5 mcg/actuation inhaler 2 puffs, Every 12 hours temazepam (RESTORIL) 15 mg, Nightly PRN valsartan (DIOVAN) 80 mg, oral, Daily Assessment: Essential hypertension Optimal in office Palpitations Reports fairly daily episodes of hearing my heart thumping going into my ears No prior documented A-fib or arrhythmia. Was taken off of carvedilol January 2024 hospitalization due to bradycardia ASHD (arteriosclerotic heart disease) March 09, 2023 Mid/proximal RCA PCI/[place] 4x15mm & 4x18mm Proximal diagonal PCI/[place] 2.5 x 18 mm LAD 10% Circumflex normal LVEF 65% February 2024 MPI ischemia, EF 88% Current daily activity at 4 METS without concerning symptoms Hyperlipidemia High intensity statin January 2024 HDL 42, cholesterol 158 Cardiac and Vasculature January 2024 TTE LVEF greater than 55% Biatrial enlargement mild Plan: Through informed decision making process incorporating patients unique circumstances, the following treatment plan will be initiated: 1. Prescription drug management of cardiovascular medication for efficacy, adherence to treatment, side effect assessment and polypharmacy. Current treatment clinically warranted and to continue without modifications. 2. Stay off ASA as you have been doing 3. 48 hour holter (palpitations) 4. Return for follow-up; in the interim, contact the office if new symptoms arise. Dr. Perry as scheduled unless abnormal findings 5. Echo (RODGERS, diastolic dysfunction) Holden Rosado MSN, PHARMACOGNOSIST-DRY MAN, PMHNP-[facility] [place], [place] Please excuse any errors in grammar or translation related to this dictation. Voice recognition software was utilized to prepare this document. documented in this encounter [facility] Work Phone: 01-12-2025 Instructions CINTIA Gallego - 01/12/2025 11:00 AM EDT Please bring all medicines, vitamins, [...] warranted and to continue without modifications. 2. Stay off ASA as you have been doing 3. 48 hour holter (palpitations) 4. Return for follow-up; in the interim, contact the office if new symptoms arise. Dr. Perry as scheduled unless abnormal findings 5. Echo (RODGERS, diastolic dysfunction) documented in this encounter [facility] Work Phone: 11-25-2024 History of Presen t illness Narrative Subjective Patient ID: Lashaun Joaquin is a 84 y.o. female who presents for Thyroid Nodule Pt reports she had a thyroid US after being found to be mildly hypothyroid. US shows an 11mm mixed thyroid nodule. FNA performed that was [place] 1. No family H/O thyroid CA. No radiation exposure. Review of Systems All other systems reviewed and are negative. No family history on file. Active Ambulatory Problems Diagnosis Date Noted Dry eyes 04/28/2024 Epiretinal membrane (ERM) of left eye 04/28/2024 Blepharitis of upper and lower eyelids of both eyes 04/28/2024 Abnormal cardiovascular stress test 11/24/2024 Adrenal nodule ([facility]/HCC) 11/24/2024 Anemia 11/24/2024 ASHD (arteriosclerotic heart disease) ([facility]) 10/17/2023 Atrophic vaginitis 11/24/2024 BMI 33.0-33.9,adult 03/05/2024 Cervical spondylosis with radiculopathy 11/24/2024 Chronic bronchitis ([facility]) 11/24/2024 Chronic heart failure with preserved ejection fraction (HFpEF) ([facility]) 11/24/2024 Chronic obstructive pulmonary disease with (acute) exacerbation ([facility]) 11/24/2024 Chronic venous insufficiency 11/24/2024 COVID 10/17/2023 Elevated serum immunoglobulin free light chain level 11/24/2024 Essential hypertension ([facility]/HCC) 10/17/2023 Flash pulmonary edema ([facility]) 11/24/2024 Former smoker 10/17/2023 OMAR (generalized anxiety disorder) ([facility]) 11/24/2024 Gastroesophageal reflux disease with esophagitis without hemorrhage 11/24/2024 Heart failure ([facility]) 11/24/2024 Resolved Ambulatory Problems Diagnosis Date Noted No Resolved Ambulatory Problems Past Medical History: Diagnosis Date Arthritis Cataract Congestive heart failure (CHF) ([facility]) Coronary artery disease ([facility]) GERD (gastroesophageal reflux disease) Hypercholesteremia ([facility]) Hypertension ([facility]) Peripheral neuropathy Past Surgical History: Procedure Laterality Date CATARACT EXTRACTION Bilateral 2008 COLONOSCOPY CORONARY ANGIOPLASTY WITH STENT PLACEMENT REFRACTIVE KERATOTOMY/LIMBAL RELAXING INCISION Bilateral Allergies Allergen Reactions Allopurinol Other Reaction(s): Unknown Amlodipine Other Reaction(s): Unknown, Unknown Reaction Azithromycin Swelling Other Reaction(s): rash Tongue swelling Codeine Other Reaction(s): Unknown Reaction Penicillins Other Reaction(s): Rash, Unknown, Unknown Reaction Sulfamethoxazole-Trimethoprim Hives Other Reaction(s): Unknown Current Outpatient Medications on File Prior to Visit Medication Sig Dispense Refill albuterol HFA 90 mcg/act inhaler Every 6 hours ALPRAZolam (Niravam) 0.25 MG disintegrating tablet Take 0.25 mg by mouth as needed at bedtime clopidogrel (Plavix) 75 MG tablet Daily Entresto 24-26 MG tablet Take 1 tablet by mouth in the morning and 1 tablet in the evening. fluticasone-salmeterol (Advair) 45-21 MCG/ACT inhaler Inhale 2 puffs in the morning and 2 puffs before bedtime. Rinse mouth with water after use to reduce aftertaste and incidence of candidiasis. Do not swallow.. furosemide (Lasix) 20 MG tablet Take 20 mg by mouth in the morning and 20 mg in the evening. gabapentin (Neurontin) 100 MG capsule Take 100 mg by mouth in the morning and 100 mg in the evening. losartan (Cozaar) 50 MG tablet NIFEdipine XL (Procardia XL) 30 MG 24 hr tablet Take 30 mg by mouth in the morning. pantoprazole (ProtoNix) 40 MG EC tablet Take 40 mg by mouth in the morning. Take before meals. potassium chloride CR (Klor-Con) 10 MEQ ER tablet Take 10 mEq by mouth in the morning and 10 mEq in the evening. rosuvastatin (Crestor) 40 MG tablet Take 40 mg by mouth in the morning. temazepam (Restoril) 15 MG capsule Take 15 mg by mouth as needed at bedtime triamcinolone (Kenalog) 0.1 % oral paste triamcinolone (Kenalog) 0.5 % cream Twice daily [DISCONTINUED] aspirin 81 MG EC tablet Take 81 mg by mouth in the morning. [DISCONTINUED] carvedilol (Coreg) 3.125 MG tablet [DISCONTINUED] levothyroxine (Synthroid, Levoxyl) 75 MCG tablet Take 75 mcg by mouth Daily No current facility-administered medications on file prior to visit. Objective Last Recorded Vitals Vitals: 11/25/24 1355 BP: 141/64 Pulse: 60 ENT Physical Exam Constitutional Appearance: patient appears well-developed, well-nourished and well-groomed, Head and Face Appearance: head appears normal and face appears atraumatic; Ear Ear Canals: right ear canal normal; left ear canal normal; Tympanic Membranes: right tympanic membrane normal; left tympanic membrane normal; Nose External Nose: nares patent bilaterally; external nose normal; Internal Nose: septum normal; Oral Cavity/Oropharynx Tongue: normal; Oral mucosa: normal; Hard palate: normal; Soft palate: normal; Tonsils: normal; Neck Neck: neck normal; neck palpation normal; Thyroid: thyroid normal; Respiratory Inspection: breathing unlabored; normal breathing rate; Auscultation: breath sounds are clear; Cardiovascular Inspection: extremities are warm and well perfused; no peripheral edema present; Auscultation: regular rate and rhythm; Assessment/Plan Diagnoses and all orders for this visit: Thyroid nodule (CMS/HCC) Even though the FNA was nondiagnostic, the absence of malignant cells was reassuring. Given the apparent low risk nature of the nodule, I will plan to follow with periodic US, starting in late December documented in this encounter [facility] 11-17-2024 Chief complaint+R mayito for visit Narrative e04.1 November 17, 2024 9 :45am Referral Order November 19, 2024 12:33pm 3 month f/u-HIGH RISK December 16 10:20am UA, frequency, burning December 29, 2024 1 :19pm Reason for Visit Admit Date Thyroid nodule November 17, 2024 9 :45am ASHD (arteriosclerotic heart disease) Fe bruary 2024 10:20am Chronic bronchitis December 16, 2024 10:20am 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) December 16, 2024 10:20am Chronic kidney disease December 16 10:20am Chronic venous insufficiency December 162024 10:20am Essential hypertension December 16 10:20am Subclinical hypothyroidism November 10:20am Thyroid nodule December 16, 2024 10:20am [facility] Work Phone: 1(354) 939-892201-20-2025 Evaluation note* Diagnosis Onset Date Resolution Status Admit Date Thyroid nodule acute November 172024 9:45am ASHD (arteriosclerotic heart disease) acute December 16, 025 10:20am Chronic bronchitis acute Februa 2024 10:20am Chronic heart failure with preserved ejection fraction (HFpEF) acute December 16, 025 10:20am Chronic kidney disease acute Fe bruary 2024 10:20am Chronic venous insufficiency acute December 16, 2024 10:20am Essential hypertension acute Fe bruary 2024 10:20am Subclinical hypothyroidism acute December 16, 2024 10:20am Thyroid nodule acute November 292024 10:20am [facility] Work Phone: 1([phone] 163-374112-11-2024 History of Present illness Narrative* Edinson Perry, DO - 10/08/2024 10:40 AM EST Subjective Lashaun Joaquin is a 84 y.o. female Chief Complaint Follow-up 84-year-old female returns for follow-up she is doing well she denies any cardiovascular events, she remains with occasional shortness of breath that is variable in nature. She was hospitalized in January 2024 with accelerated hypertension, bradycardia and what sounds like possibly diastolic heart failure. She was hospitalized at [facility] we were not involved in this. Her medications were changed, cluck carvedilol was discontinued and Entresto was initiated. She has supranormal left ventricular function with ejection fraction of 88% and normal perfusion scan February 2023. She did undergo primary PCI proximal RCA and diagonal branch in February 2023 for subsequentnon-ST elevation AK event with preserved LV function. She is a former smoker, quit 45 years ago; has underlying hypertension; has no major ambulatory limitations and remains on DAPT Recommendations: Discontinue Entresto, switch over to valsartan 80 mg daily, follow-up with blood pressure check in 3 months with nurse practitioner and titrate accordingly, will follow-up with myself in 1 year Review of Systems All other systems reviewed and are negative. Vitals: 10/08/24 1040 BP: 124/60 BP Location: Right arm Patient Position: Sitting Pulse: 78 Weight: 90.3 kg (199 lb) Height: 1.651 m (5' 5 ) Objective Physical Exam Constitutional: Appearance: Normal appearance. HENT: Nose: Nose normal. Neck: Vascular: No carotid bruit. Cardiovascular: Rate and Rhythm: Normal rate. Pulses: Normal pulses. Heart sounds: Normal heart sounds. Pulmonary: Effort: Pulmonary effort is normal. Abdominal: General: Bowel sounds are normal. Palpations: Abdomen is soft. Musculoskeletal: General: Normal range of motion. Cervical back: Normal range of motion. Right lower leg: No edema. Left lower leg: No edema. Skin: General: Skin is warm and dry. Neurological: General: No focal deficit present. Mental Status: She is alert. Psychiatric: Mood and Affect: Mood normal. Behavior: Behavior normal. Thought Content: Thought content normal. Judgment: Judgment normal. Allergies Bactrim [sulfamethoxazole-trimethoprim] and Zithromax z-tim [azithromycin] Current Medications Current Outpatient Medications: ALPRAZolam (Niravam) 0.25 mg disintegrating tablet, Dissolve 1 tablet (0.25 mg) in the mouth as needed at bedtime for anxiety., Disp: , Rfl: aspirin 81 mg EC tablet, Take 1 tablet (81 mg) by mouth once daily., Disp: , Rfl: clopidogrel (Plavix) 75 mg tablet, TAKE 8 TABLETS BY MOUTH ON DAY ONE THEN TAKE 1 TABLET BY MOUTH DAILY, Disp: 90 tablet, Rfl: 3 furosemide (Lasix) 20 mg tablet, Take 1 tablet (20 mg) by mouth once daily., Disp: , Rfl: gabapentin (Neurontin) 100 mg capsule, Take 1 capsule (100 mg) by mouth 2 times a day., Disp: , Rfl: NIFEdipine XL 30 mg 24 hr tablet, Take 1 tablet (30 mg) by mouth once daily., Disp: , Rfl: pantoprazole (ProtoNix) 40 mg EC tablet, Take 1 tablet (40 mg) by mouth once daily in the morning. Take before meals. Do not crush, chew, or split., Disp: , Rfl: potassium chloride CR 10 mEq ER tablet, Take 1 tablet (10 mEq) by mouth once daily. Do not crush, chew, or split., Disp: , Rfl: rosuvastatin (Crestor) 40 mg tablet, Take 1 tablet (40 mg) by mouth once daily., Disp: , Rfl: temazepam (Restoril) 15 mg capsule, Take 1 capsule (15 mg) by mouth as needed at bedtime for sleep., Disp: , Rfl: Assessment/Plan 1. ASHD (arteriosclerotic heart disease) Follow Up In Cardiology 2. Essential hypertension 3. BMI 33.0-33.9,adult 4. Former smoker 5. S/P PTCA (percutaneous transluminal coronary angioplasty) 6. Mixed hyperlipidemia 7. Coronary arteriosclerosis after percutaneous transluminal coronary angioplasty (PTCA) Scribe Attestation By signing my name below, I, Luz Mendez LPN attest that this documentation has been prepared under the direction and in the presence of Shelbi Perry DO. Provider Attestation - Scribe documentation All medical record entries made by the Scribe were at my direction and personally dictated by me. Ihave reviewed the chart and agree that the record accurately reflects my personal performance of the history, physical exam, discussion and plan. documented in this [facility] Work Phone: 1(215) 505-314212-11-2024 Instructions* Patient Instructions* Racquel Olivera LPN - 10/08/2024 10:40 AM EST Please bring all medicines, vitamins, and herbal supplements with you when you come to the office. Prescriptions will not be filled unless you are compliant with your follow up appointments or have a follow up appointment scheduled as per instruction of your physician. Refills should be requested at the time of your visit. BMI was above normal measurement. Current weight: 90.3 kg (199 lb) Weight change since last visit (-) denotes wt loss 0.8 lbs Weight loss needed to achieve BMI 25: 49.1 Lbs Weight loss needed to achieve BMI 30: 19.1 Lbs Provided instructions on dietary changes Provided instructions on exercise. documented in this [facility] Work Phone: 1(171) 222-250411-14-2024 Evaluation note* Diagnosis Onset Date Resolution Status Admit Date Anemia acute September 11, 2024 10:16am ASHD (arteriosclerotic heart disease) acute September 11 10:16am Chronic bronchitis acute Novemb er 2023 10:16am Chronic heart failure with preserved ejection fraction (HFpEF) acute September 11 10:16am Chronic venous insufficiency acute September 11, 2024 10:16am Essential hypertension acute No 2023 10:16am OMAR (generalized anxiety disorder) a cute September 11, 2024 10:16am Hypercholesterolemia acute Nove mber 2023 10:16am Subclinical hypothyroidism acute September 11, 2024 10:16am [facility] Work Phone: 1([phone]) 446-546411-14-2024 Evaluation note* Diagnosis Onset Date Resolution Status Admit [...] Subclinical hypothyroidism acute September 11, 2024 10:16am Thyroid nodule acute November 172024 9:45am [facility] Work Phone: [phone] Evaluation + Plan note* Assessment & Plan Note - Holden Rosado APRN-DRY MAN - 04/22/2024 11:58 AM EDTAssociated Problem(s): BMI 32.0-32.9,adult Reviewed the merits of healthy lifestyle choices on overall cardiovascular health. [facility] Work Phone: [phone]) 764-413306-25-2024 Evaluation + Plan note* Assessment & Plan Note - CINTIA Gallego - 04/22/2024 11:58 AM EDTAssociated Problem(s): Hyperlipidemia High intensity statin January 2024 HDL 42, cholesterol 158 [facility] Work Phone: [phone]) 508-243406-25-2024 Evaluation + Plan note* Assessment & Plan Note - CINTIA Gallego - 04/22/2024 11:58 AM EDTAssociated Problem(s): Essential hypertension Optimal in the office [facility] Work Phone: [phone]) [phone] Evaluation + Plan note* Assessment & Plan Note - CINTIA Gallego - 04/22/2024 11:58 AM EDTAssociated Problem(s): ASHD (arteriosclerotic heart disease) March 09, 2023 Mid/proximal RCA PCI/[place] 4x15mm & 4x18mm Proximal diagonal PCI/[place] 2.5 x 18 mm LAD 10% Circumflex normal LVEF 65% February 2024 MPI ischemia, EF 88% Current daily activity at 4 METS without concerning symptoms [facility] Work Phone: 1([phone]) 871-488106-25-2024 Miscellaneous Notes* Assessment & Plan Note - CINTIA Gallego - 04/22/2024 11:58 AM EDTAssociated Problem(s): BMI 32.0-32.9,adult Reviewed the merits of healthy lifestyle choices on overall cardiovascular health. * Assessment & Plan Note - CINTIA Gallego - 04/22/2024 11:58 AM EDT Associated Problem(s): Hyperlipidemia High intensity statin January 2024 HDL 42, cholesterol 158 * Assessment & Plan Note - CINTIA Gallego - 04/22/2024 11:58 AM EDT Associated Problem(s): Essential hypertension Optimal in the office * Assessment & Plan Note - CINTIA Gallego - 04/22/2024 11:58 AM EDT Associated Problem(s): ASHD (arteriosclerotic heart disease) March 09, 2023 Mid/proximal RCA PCI/[place] 4x15mm & 4x18mm Proximal diagonal PCI/[place] 2.5 x 18 mm LAD 10% Circumflex normal LVEF 65% February 2024 MPI ischemia, EF 88% Current daily activity at 4 METS without concerning symptoms documented in this [facility] Work Phone: 1(803) 692-761006-24-2024 History of Present illness Narrative* CINTIA Gallego - 04/21/2024 10:30 AM EDT Chief Complaint Seem to be doing better Reason for Visit 1 month follow-up Patient presents to the office today for outpatient follow-up for testing results. Last evaluated in clinic by myself February 2024. At that time patient complained of exertional pain between her shoulder blades. A subsequent perfusion study showed no evidence of ischemia. Presents today ambulatory with steady gait. Accompanied by child Patient denies any hospitalizations or significant changes to interval medical history since last office follow-up. History of Present Illness Patient presents to the office today where she reports feeling good . Her prior complaint of exertional pain between her shoulder blades has completely resolved. She remains active going down the basement stairs to the laundry twice a week, sweeps and mops her floors and goes to the grocery store without concerns. Her carvedilol was discontinued due to hospitalization due to bradycardia, blood pressure remains optimal and heart rate remains in the 60s on no AV valentina blocking agents. Recent labs showed a potassium of 5.2 and I called her to discontinue potassium supplement. For some reason she resumed a couple days ago, will recheck Chem-6 in 1 week. Patient reports that overall has no complaint(s) of chest pain, chest pressure/discomfort, claudication, dyspnea, exertional chest pressure/discomfort, fatigue, and irregular heart beat The importance of secondary prevention reviewed: HTN: Optimal in office HLD: Optimally treated DM: Denies Smoker: Denies BMI: Reviewed the merits of healthy lifestyle choices on overall cardiovascular health. Overall, the patient is in much better spirits than her office visit for hospital follow-up. She has returned to her usual state of health. Medication list was reconciled at last visit and they remain compliant with treatment as listed below. Will continue DAPT until next office follow-up. Review of Systems Cardiovascular: Negative for chest pain, dyspnea on exertion, irregular heartbeat, leg swelling, near-syncope, orthopnea, palpitations, paroxysmal nocturnal dyspnea and syncope. Visit Vitals BP 132/70 (BP Location: Right arm, Patient Position: Sitting) Pulse 60 Wt 89.9 kg (198 lb 3.2 oz) BMI 32.98 kg/m Smoking Status Former BSA 2.03 m Physical Exam Vitals and nursing note [...] (RESTORIL) 15 mg, oral, Nightly PRN Assessment: ASHD (arteriosclerotic heart disease) March 09, 2023 Mid/proximal RCA PCI/[place] 4x15mm & 4x18mm Proximal diagonal PCI/[place] 2.5 x 18 mm LAD 10% Circumflex normal LVEF 65% February 2024 MPI ischemia, EF 88% Current daily activity at 4 METS without concerning symptoms Essential hypertension Optimal in the office Hyperlipidemia High intensity statin January 2024 HDL 42, cholesterol 158 BMI 32.0-32.9,adult Reviewed the merits of healthy lifestyle choices on overall cardiovascular health. Plan: Through informed decision making process incorporating patients unique circumstances, the followingtreatment plan will be initiated: 1. Prescription drug management of cardiovascular medication for efficacy, adherence to treatment, side effect assessment and polypharmacy. Current treatment clinically warranted and to continue without modifications. 2. Labs in one week (chem6) 3. Return for follow-up; in the interim, contact the office if new symptoms arise. Dr. Perry 6 months Holden Rosado MSN, PHARMACOGNOSIST-DRY MAN, PMHNP-[facility] Please excuse any errors in grammar or translation related to this dictation. Voice recognition software was utilized to prepare this document. [facility] Work Phone: [phone]) 789-354506-24-2024 Instructions* Patient Instructions* CINTIA Gallego - 04/21/2024 10:30 AM EDT Please bring all medicines, vitamins, [...] making process incorporating patients unique circumstances, the followingtreatment plan will be initiated: 1. Prescription drug management of cardiovascular medication for efficacy, adherence to treatment, side effect assessment and polypharmacy. Current treatment clinically warranted and to continue without modifications. 2. Labs in one week (chem6) 3. Return for follow-up; in the interim, contact the office if new symptoms arise. Dr. Perry 6 months documented in this [facility] Work Phone: [phone]) [phone] Evaluation + Plan note* Assessment & Plan Note - CINTIA Gallego - 03/06/2024 10:42 AM EDTAssociated Problem(s): BMI 32.0-32.9,adult Reviewed the merits of healthy lifestyle choices on overall cardiovascular health. [facility] Work Phone: [phone]) [phone] Evaluation + Plan note* Assessment & Plan Note - CINTIA Gallego - 03/06/2024 10:42 AM EDTAssociated Problem(s): Hyperlipidemia High intensity statin January 2024 HDL 42, cholesterol 158 [facility] Work Phone: [phone] 498-425005-09-2024 Miscellaneous Notes* Assessment & Plan Note - CINTIA Gallego - 03/06/2024 10:42 AM EDTAssociated Problem(s): BMI 32.0-32.9,adult Reviewed the merits of healthy lifestyle choices on overall cardiovascular health. * Assessment & Plan Note - CINTIA Gallego - 03/06/2024 10:42 AM EDT Associated Problem(s): Hyperlipidemia High intensity statin January 2024 HDL 42, cholesterol 158 * Assessment & Plan Note - CINTIA Gallego - 03/06/2024 10:41 AM EDT Associated Problem(s): Essential hypertension Optimal in office * Assessment & Plan Note - CINTIA Gallego - 03/06/2024 10:41 AM EDT Associated Problem(s): ASHD (arteriosclerotic heart disease) March 09, 2023 Mid/proximal RCA PCI/[place] 4x15mm & 4x18mm Proximal diagonal PCI/[place] 2.5 x 18 mm LAD 10% Circumflex normal LVEF 65% documented in [facility] Work Phone: [phone]) [phone] Evaluation + Plan note* Assessment & Plan Note - CINTIA Gallego - 03/06/2024 10:41 AM EDTAssociated Problem(s): Essential hypertension Optimal in office [facility] Work Phone: [phone]) [phone] Evaluation + Plan note* Assessment & Plan Note - CINTIA Gallego - 03/06/2024 10:41 AM EDTAssociated Problem(s): ASHD (arteriosclerotic heart disease) March 09, 2023 Mid/proximal RCA PCI/[place] 4x15mm & 4x18mm Proximal diagonal PCI/[place] 2.5 x 18 mm LAD 10% Circumflex normal LVEF 65% [facility] Work Phone: [phone]) [phone] History of Present illness Narrative* CINTIA Gallego - 03/05/2024 11:30 AM EDT Chief Complaint I am just not feeling good Reason for Visit Patient presents to the office today for outpatient follow-up for hospital follow-up. Last evaluated in clinic by Dr. Perry September 2023. January 2024: Hospitalized at [facility] due to accelerated hypertension and bradycardia. She was seen by [facility] cardiology. Inpatient echo showed EF greater than 55%, mild biatrial enlargement and RVSP of 41mmHg. There was no documented significant dysrhythmia. Heart [...] this to bending over and planting the moy.She then goes on to report that her PCI symptom was pain between her shoulder blades. She reports that she felt so much better after her stents but over the last 2 months she has noted a steady decl ine. She reportedly completed cardiac rehab 2 months [...] patient and daughter are much relieved and appr eciated with this approach. If perfusion study is [...] Negative for dyspnea on exertion, irregular heartbeat, legswelling, near-syncope, orthopnea, palpitations, paroxysmal nocturnal dyspnea and [...] heart disease) March 09, 2023 Mid/proximal RCA PCI/[place] 4x15mm & 4x18mm Proximal diagonal PCI/[place] 2.5 x 18 mm LAD 10% Circumflex normal LVEF 65% Essential hypertension Optimal in office Hyperlipidemia High intensity statin January 2024 HDL 42, cholesterol 158 BMI 32.0-32.9,adult Reviewed the merits of healthy lifestyle choices on overall cardiovascular health. Plan: Through informed decision making process incorporating patients unique circumstances, the followingtreatment plan will be initiated: 1. Prescription drug management of cardiovascular medication for efficacy, adherence to treatment, side effect assessment and polypharmacy. Current treatment clinically warranted and to continue without modifications. 2. Lexiscan MPI (RODGERS, fatigue) no treadmill due to weakness, OA 3. Labs (chem6) 4. Return for follow-up; in the interim, contact the office if new symptoms arise. FLEXO OPERATOR after testing Holden Rosado MSN, PHARMACOGNOSIST-DRY MAN, PMHNP-[facility] Please excuse any errors in grammar or translation related to this dictation. Voice recognition software was utilized to prepare this document. documented in this [facility]Mer[facility] Work Phone: [phone]) [phone] Instructions* Patient Instructions* CINTIA Gallego - 03/05/2024 11:30 AM EDT [...] making process incorporating patients unique circumstances, the followingtreatment plan will be initiated: 1. Prescription drug management of cardiovascular medication for efficacy, adherence to treatment, side effect assessment and polypharmacy. Current treatment clinically warranted and to continue without modifications. 2. Lexiscan MPI ([place], fatigue) no treadmill due to weakness, OA 3. Labs (chem6) 4. Return for follow-up; in the interim, contact the office if new symptoms arise. FLEXO OPERATOR after testing documented in this [facility]Mer[facility] Work Phone: [phone]) 723-604401-30-2024 Evaluation note* Encounter Date Diagnosis Assessment Notes Treatment Notes Treatment Clinical Notes Oct, Primary insomnia (ICD-10 - F51.01) [employer] Other 01-08-2024 NoteHNO ID: [id number] Author: PAOLO CASILLAS APRN.CNP Service: ? Author [...] reactive to light, ext (more content not included)...[facility]01-05-2024 Evaluation note* Encounter Date Diagnosis Assessment [...] in remission (ICD-10 - F17.211) Continue abstinence [employer] Other 12-05-2023 Evaluation note* Encounter Date Diagnosis [...] and feet daily for blisters and ulcerations. [employer] Other 11-29-2023 Evaluation note* Encounter Date Diagnosis Assessment Notes Treatment Notes Treatment Clinical Notes Aug, Chronic venous insufficiency (ICD-10 - I87.2) [employer] Other 11-24-2023 Evaluation note* Encounter Date Diagnosis Assessment Notes Treatment Notes Treatment Clinical Notes Aug, Subacute cough (ICD-10 - R05.2) Aug, Dyspnea on exertion (ICD-10 - R06.09) [employer] Other 11-20-2023 Evaluation note* Encounter Date Diagnosis Assessment Notes Treatment Notes Treatment Clinical Notes Aug, Chronic venous insufficiency (ICD-10 - I87.2) [employer] Other 11-16-2023 Evaluation note* Encounter Date Diagnosis Assessment Notes Treatment Notes Treatment Clinical Notes Aug, Chronic venous insufficiency (ICD-10 - I87.2) [employer] Other 11-14-2023 Evaluation note* Encounter Date Diagnosis Assessment Notes Treatment Notes Treatment Clinical Notes Aug, Acute bronchitis due to other specified organisms (ICD-10 - J20.8) Instructed to use Robitussin or Mucinex for cough, saline or Flonase NS for congestion, Tylenol for pain and fever. Aug, Chronic obstructive pulmonary disease with (acute) exacerbation (ICD-10 - J44.1) Begin using EDEL as needed to mobilize secretions. [employer] Other 10-19-2023 Evaluation note* Encounter Date Diagnosis Assessment Notes Treatment Notes Treatment Clinical Notes Jul, Aphthous ulcer (ICD-10 - K12.0) [employer] Other 09-20-2023 Evaluation note* Encounter Date Diagnosis Assessment Notes Treatment Notes Treatment Clinical Notes Jun, Dysuria (ICD-10 - R30.0) [employer] Other 09-19-2023 Evaluation note* Encounter Date Diagnosis Assessment Notes Treatment Notes Treatment Clinical Notes Jun, Dysuria (ICD-10 - R30.0) [employer] Other 08-28-2023 Evaluation note* Encounter Date Diagnosis Assessment Notes Treatment Notes Treatment Clinical Notes May, Chronic venous insufficiency (ICD-10 - I87.2) [employer] Other 08-24-2023 Evaluation note* Encounter Date Diagnosis Assessment Notes Treatment Notes Treatment Clinical Notes May, Primary insomnia (ICD-10 - F51.01) [employer] Other 08-21-2023 Evaluation note* Encounter Date Diagnosis Assessment Notes Treatment Notes Treatment Clinical Notes May, Diastolic hypertension (ICD-10 - I10) [employer] Other 08-18-2023 Evaluation note* Encounter Date Diagnosis Assessment Notes Treatment Notes Treatment Clinical Notes May, Primary hypertension (ICD-10 - I10) [employer] Other 08-18-2023 Evaluation note* Encounter Date Diagnosis Assessment Notes Treatment Notes Treatment Clinical Notes May, Diastolic hypertension (ICD-10 - I10) [employer] Other 08-11-2023 Evaluation note* Encounter Date Diagnosis [...] and feet daily for blisters and ulcerations. [employer] Other 08-09-2023 Miscellaneous Notes* Telephone Encounter - [...] can further discuss then. [facility]23 NoteHNO ID: [id number] Author: Luis Mckenzie MD Service: ? Author [...] shortness of breath and was hospitalized at [facility] and treated for suspected pneumonia. Apparently it was later felt she had heart disease, and cardiac catheterization revealed severe coronary artery disease. She subsequently underwent stent placement at [facility]. Apparently her shortness of breath persisted, and [...] extremities and face. Ne (more content not included)...[facility]08-07-2023 History of Present illness Narrative* Luis [...] shortness of breath and was hospitalized at [facility] and treated for suspected pneumonia. Apparently it was later felt she had heart disease, and cardiac catheterization revealed severe coronary artery disease. She dumont bsequently underwent stent placement at [facility]. Apparently her shortness of breath persisted, and [...] shortness of breath and was hospitalized at [facility] treated for suspected pneumonia. Apparently it was later felt she had heart disease, and cardiac catheterization revealed severe coronary artery disease. She subsequently underwent stent placement at [facility]. April 2023 she developed severe shortness of breath and was hospitalized at [facility] [place] 05/17/2023with CHF. She improved with diuresis but [...] MD CC: Dr. Perry documented in this encounter[facility] Evaluation note* Encounter Date Diagnosis Assessment [...] dependence, cigarettes, in remission (ICD-10 - F17.211) [employer] Other 07-21-2023 Discharge summary [facility] May 18, 2023 11:44am Note Date/Time May 18, 2023 11:4 4am [facility] [address] [place] [address] Discharge Summary Signed Patient: Lashaun Joaquin MR#: [id number] : 1940 Acct:[id number] Age/Sex: 82 / F Adm Date: 3 Loc: Room: [address] [place] [address]: Lj Ryan DO Copies to: Nathan Hathaway,DO Lj Ryan, DO~ Providers Date of Discharge: 05/18/23 Discharging [...] % (Auto) 73.6, Lymph % (Auto) 15.1, [place] % (Auto) 8.7, Eos % (Auto) 1.9, Baso % (Auto) 0.7, Nucleat RBC Rel Count 0.1, Neut # (Auto) 4.4, Lymph # (Auto) 0.9 L, [place] # (Auto) 0.5, Eos # (Auto) 0.1, [...] signed by Lj Ryan DO> 05/18/23 1144 [facility] Work Phone: 1(718) 613-714907-20-2023 History and physical note Author Lj Ryan [facility] May 17, 2023 3:56pm Note Date/Time May 17, 2023 3:49 pm [facility] [address] [place] [address] Hospitalist H&P Signed Patient: Lashaun Joaquin MR#: [id number] : 1940 Acct:[id number] Age/Sex: 82 / F Adm Date: 3 Loc: Room: [address] [place] [address] Type: ADM INOo Attending Dr: Lj Ryan [...] negative unless noted below or in HPI [facility] Medical History (Updated 05/17/23 @ 15:50 by [...] % (Auto) 9.3 % (.) 05/17/23 10:25 [place] % (Auto) 5.5 % (.) 05/17/23 10:25 Eos % (Auto) 0.5 % (.) 05/17/23 10:25 Baso % (Auto) 0.5 % (.) 05/17/23 10:25 Nucleat RBC Rel Count 0.0 /100 WBC (0-0.5) 05/17/23 10:25 Neut # (Auto) 8.6 x10E3/uL (1.8-7.7) H 05/17/23 10:25 Lymph # (Auto) 1.0 x10E3/uL (1.00-4.8) 05/17/23 10:25 [place] # (Auto) 0.6 x10E3/uL (0.0-0.8) 05/17/23 10:25 [...] 1 Documented By: Lj Ryan DO 05/17/23 6922 Signed By: <Electronically signed by jL Ryan DO> 05/17/23 1556 [facility] Work Phone: 1(930) 126-837707-19-2023 Evaluation note* Encounter Date Diagnosis Assessment Notes [...] [BMI ] 33.0-33.9, adult (ICD-10 - Z68.33) [employer] Other 07-12-2023 Evaluation note* Encounter Date Diagnosis [...] dependence, cigarettes, in remission (ICD-10 - F17.211) [employer] Other 06-29-2023 Evaluation note* Encounter Date Diagnosis Assessment Notes Treatment Notes Treatment Clinical Notes Mar, Paronychia of finger of right hand (ICD-10 - L03.011) [employer] Other 06-29-2023 Evaluation note* Encounter Date Diagnosis [...] healthy diet. Mar, Paresthesias (ICD-10 - R20.2) [employer] Other 06-21-2023 Evaluation note* Encounter Date Diagnosis [...] post PCI/stent placement. Continue for 12 months [employer] Other 06-21-2023 Evaluation note* Encounter Date Diagnosis Assessment Notes Treatment Notes Treatment Clinical Notes Mar, Chronic bronchitis, simple (ICD-10 - J41.0) [employer] Other 05-30-2023 Evaluation note* Encounter Date Diagnosis Assessment Notes Treatment Notes Treatment Clinical Notes February, Paresthesias (ICD-10 - R20.2) [employer] Other 05-18-2023 Evaluation note* Encounter Date Diagnosis Assessment Notes Treatment Notes Treatment Clinical Notes February, ASHD (arteriosclerotic heart disease) (ICD-10 - I25.10) This patient is stable without activity related CP, dyspnea or lightheadedness. They are instructed to continue exercise and [facility] diet plan. February, Primary hypertension (ICD-10 - [...] Titrate Gabapentin and monitor for fluid retention [employer] Other 05-08-2023 Evaluation note* Encounter Date Diagnosis Assessment Notes Treatment Notes Treatment Clinical Notes February, Primary hypertension (ICD-10 - I10) February, Chronic venous insufficiency (ICD-10 - I87.2) [employer] Other 04-19-2023 Evaluation note* Encounter Date Diagnosis [...] pain, change in appetite or bowel habits [employer] Other 04-16-2023 Evaluation note* Encounter Date Diagnosis [...] chronic diastolic heart failure (ICD-10 - I50.33) [employer] Other 04-07-2023 Evaluation note* Encounter Date Diagnosis [...] Diet and exercise with continued statin therapy. [employer] Other 02-23-2023 Evaluation note* Encounter Date Diagnosis Assessment Notes Treatment Notes Treatment Clinical Notes Nov, Primary insomnia (ICD-10 - F51.01) [employer] Other 02-16-2023 Evaluation note* Encounter Date Diagnosis [...] mammogram for breast cancer (ICD-10 - Z12.31) [employer] Other 02-06-2023 NoteHNO ID: [id number] Author: Luis Mckenzie MD Service: ? Author [...] respiratory effort, and percussion. (more content not included)...[facility]02-06-2023 History of Present illness Narrative* Luis [...] PCP. Luis Mckenzie MD documented in this encounterOhio[facility]01-17-2023 Evaluation note* Encounter Date Diagnosis Assessment [...] or drinking prior to bedtime. Weight loss. PPI [employer] Other 11-01-2022 Miscellaneous Notes* Telephone Encounter - [...] her back as scheduled in November MARBIN Freeman documented in this encounterOhio[facility]10-31-2022 History of Present illness Narrative* Nancy [...] August 28, 2022 TIME: 12:44 PM * YoShirlene irizarry RT(R) - 08/28/2022 12:15 PM EDT Radiology [...] 28, 2022 12:49 PM documented in this encounterOhio[facility] Dublin [facility] Hospital08-01-2022 History of Present illness Narrative* Luis [...] PCP. Luis Mckenzie MD [facility] N[facility] - Reported * LASHAUN JOAQUIN is being seen for a consultation for abnormal test(s) results. * 82-year-old female seen in cardiology consultation at the request of Dr. Natalio hathaway for recent episode of respiratory distress, what sounds like congestive heart failure associated with accelerated hypertension, was admitted to [facility] briefly, diuresed approximately 14 pounds with diuretics. [...] and proceed with heart cath this Sunday -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 Lung nodules Other nonspecific abnormal finding of lung field documented in this encounter [facility]* Diagnosis Abnormal SPEP- Primary Other nonspecific findings on examination of blood Neuropathy - (NOS) Lung nodules Other nonspecific abnormal finding of lung field documented in this encounter [facility] HospitalEvaluation noteNo [employer] Other Evaluation noteNo assessment information available [facility] Work Phone: Evaluation note* Diagnosis Onset Date Resolution Status Flash pulmonary edema acute Heart failure acute Hypertension acute Hypertensive emergency acute Hypoxia acute [facility] Work Phone: Evaluation note* Diagnosis Abnormal SPEP- Primary Other nonspecific findings on examination of blood Anemia, unspecified type Neuropathy - (NOS) Heart disease Heart disease, unspecified documented in this encounter [facility]* Diagnosis Onset Date Resolution Status ASHD (arteriosclerotic heart disease) acute Chronic diastolic heart failure acute Chronic venous insufficiency acute Elevated cholesterol acute Essential hypertension acute OMAR (generalized anxiety disorder) acute Gastroesophageal reflux dise ase with esophagitis without hemorrhage acute 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 [facility] Work Phone: Evaluation note* Diagnosis Onset [...] tube dysfunction acute Right otitis media acute [facility] Work Phone: Evaluation note* Diagnosis ASHD (arteriosclerotic heart disease)- Primary Coronary atherosclerosis of unspecified type of vessel, [place] or graft Essential hypertension Unspecified essential hypertension Mixed hyperlipidemia BMI 32.0-32.9,adult documented in this encounter [facility] Work Phone: Evaluation note* Diagnosis Onset [...] (generalized anxiety disorder) acute Subclinical hypothyroidism a [facility] Work Phone: Evaluation note* Diagnosis ASHD (arteriosclerotic heart disease) Coronary atherosclerosis of unspecified type of vessel, [place] or graft documented in this encounter [facility] Work Phone: Evaluation note* Diagnosis Onset Date Resolution Status Anemia acute ASHD (arteriosclerotic heart disease) acute Chronic diastolic heart failure acute Chronic venous insufficiency acute Essential hypertension acute OMAR (generalized anxiety disorder) acute Subclinical hypothyroidism a [facility] Work Phone: Evaluation note* Diagnosis 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 Lung nodules Other nonspecific abnormal finding of lung field documented in this encounter [facility]* Diagnosis Onset Date Resolution Status [...] September 11, 2024 10:16am Hypercholesterolemia acute Nove mb 2023 10:16am Subclinical hypothyroidism acute September 11, 2024 10:16am [facility] Work Phone: Evaluation note* Diagnosis Essential hypertension- Primary Unspecified essential hypertension ASHD (arteriosclerotic heart disease) Coronary atherosclerosis of unspecified type of vessel, [place] or graft Mixed hyperlipidemia BMI 32.0-32.9,adult documented in this encounter [facility] Work Phone: Evaluation note* Diagnosis ASHD (arteriosclerotic heart disease)- Primary Coronary atherosclerosis of unspecified type of vessel, [place] or graft Essential hypertension Unspecified essential hypertension Mixed hyperlipidemia BMI 32.0-32.9,adult Essential hypertension- Primary Unspecified essential hypertension ASHD (arteriosclerotic heart disease) Coronary atherosclerosis of unspecified type of vessel, [place] or graft Mixed hyperlipidemia BMI 32.0-32.9,adult ASHD (arteriosclerotic heart disease) Coronary atherosclerosis of unspecified type of vessel, [place] or graft Essential hypertension Unspecified essential hypertension BMI 33.0-33.9,adult Former smoker Personal history of tobacco use, presenting hazards to health S/P PTCA (percutaneous transluminal coronary angioplasty) Postsurgical percutaneous transluminal coronary angioplasty status Mixed hyperlipidemia Coronary arteriosclerosis after percutaneous transluminal coronary angioplasty (PTCA) documented in this encounter [facility] Work Phone: Evaluation note* Diagnosis Thyroid nodule (CMS/HCC)- Primary Nontoxic uninodular goiter [facility] Diagnosis ASHD (arteriosclerotic heart disease)- Primary Coronary atherosclerosis of unspecified type of vessel, [place] or graft Essential hypertension Unspecified essential hypertension Mixed hyperlipidemia BMI 32.0-32.9,adult Essential hypertension- Primary Unspecified essential hypertension ASHD (arteriosclerotic heart disease) Coronary atherosclerosis of unspecified type of vessel, [place] or graft Mixed hyperlipidemia BMI 32.0-32.9,adult BMI 33.0-33.9,adult- Primary Essential hypertension Unspecified essential hypertension Palpitations ASHD (arteriosclerotic heart disease) Coronary atherosclerosis of unspecified type of vessel, [place] or graft Mixed hyperlipidemia documented in this encounter [facility] Work Phone: History general Narrative - [...] Colonoscopy 2012 Hospitalization History see surgical history [employer] Other History general Narrative - Reported* Type [...] diagonal br Hospitalization History see surgical history [employer] Other Hospital Discharge instructions Additional Instructions Please [...] to control your blood pressure in the hospital.[facility] Work Phone: Hospital Discharge instructionsAmbulatory Orders* Referral to ENT Time Frame: 11/19/24, Location: None Selected [facility] Work Phone: Reason for referral (narrative)* Consultation (Routine) - Authorized Specialty Diagnoses / Procedures Referred By Isabelle quintanilla Referred To Contact Cardiology Diagnoses ASHD (arteriosclerotic heart disease) Procedures Follow Up In Cardiology Holden Rosado APRN-CNP [address] [place] [address] 2, [address] [address] Referral ID Status Reason Start Date Expiration Date V isits Requested Visits Authorized [id number] Authorized 03/05/2024 03/05/2025 1 1 * Cardiac Stress Testing (Routine) - Pending Review Specialty Diagnoses / Procedures Referred By Isabelle quintanilla Referred To Contact Radiology Diagnoses ASHD (arteriosclerotic heart disease) Procedures Nuclear Stress Test CHG MYOCARDIAL SPECT MULTIPLE STUDIES Holden Rosado APRN-CNP [address] [place] [address], [address] [address] Referral ID Status Reason Start Date Expiration Date V isits Requested Visits Authorized [id number] Pending Review 03/05/2024 03/05/2025 5 5 [facility] Work Phone: Rertxg for referral (narrative)* Consultation (Routine) - Authorized Specialty Diagnoses / Procedures Referred By Isabelle quintanilla Referred To Contact Cardiology Diagnoses ASHD (arteriosclerotic heart disease) Procedures Follow Up In Cardiology Holden Rosado APRN-CNP [address] [facility] 2, [address] [address] Referral ID Status Reason Start Date Expiration Date V isits Requested Visits Authorized [id number] Authorized 04/21/2024 04/21/2025 1 1 [facility] Work Phone: Advance Directives No Advanced Directives Records FoundDocuments on File Type Date Recorded Patient Director Nursing Service Expl anation Advance Directive(s) 08/01/2021 12:55 PM A dvance Directives Documents on File Type Date Recorded Patient Director Nursing Service Expl anation Advance Directive(s) 08/01/2021 12:55 PM [...] COMPUTED TOMOGRAPHY THORAX W/CONTRAST Luis Mckenzie MD [address] [place] [address] [place] [address] Ct Imaging Referral ID Status Reason Start Date Expiration Date Visits Requested Visits Authorized [id number] Authorized Auto-Generat ed Referral 05/29/2022 06/28/2023 1 1 Specialty Diagnoses / Procedures Referred By Contac t Referred To Contact CT IMAGING Diagnoses Disorder of adrenal gland (HCC) Procedures CT ABD/PEL W IVCON CT ABD & PELVIS W/CONTRAST Luis Mckenzie MD [address] [place] [address] [place] [address] Ct Imaging Referral ID Status Reason Start Date Expiration Date Visits Requested Visits Authorized [id number] Authorized Auto-Generat ed Referral 05/29/2022 06/28/2023 1 1 Specialty Diagnoses / Procedures Referred By Contac t Referred To Contact Radiology Diagnoses ASHD (arteriosclerotic heart disease) Procedures Nuclear Stress Test CHG MYOCARDIAL SPECT MULTIPLE STUDIES Holden Rosado, PHARMACOGNOSIST-DRY MAN [address] [facility] 2, [address] [place] [address] Referral ID Status Reason Start Date Expiration Date V isits Requested Visits Authorized [id number] Pending Review 03/05/2024 03/05/2025 5 5 Specialty Diagnoses / Procedures Referred By Contac t Referred To Contact CT IMAGING Diagnoses Lung nodules Procedures CT CHEST W IVCON DIAGNOSTIC COMPUTED TOMOGRAPHY THORAX W/CONTRAST Luis Mckenzie MD [address] [place] [address] [place] [address] Ct Imaging [id number] Referral ID Status Reason Start Date Expiration Date V isits Requested Visits Authorized [id number] Closed Auto-Generate d Referral 05/29/2022 06/28/2023 1 1 Specialty Diagnoses / Procedures Referred By Contac t Referred To Contact CT IMAGING Diagnoses Disorder of adrenal gland (HCC) Procedures CT ABD/PEL W IVCON CT ABD & PELVIS W/CONTRAST Luis Mckenzie MD [address] [place] [address] [place] [address] [place] [id number] Referral ID Status Reason Start Date Expiration Date V isits Requested Visits Authorized [id number] Closed Auto-Generate d Referral 05/29/2022 06/28/2023 1 1 Family History No Family History Records FoundUnknown Family Member Name Dates Details Cardiac defibrillator [...] neoplasm of lung Unknown Exposure to Agent [place] Unknown brother Malignant neoplasm of colon Unknown [...] neoplasm of lung Unknown Exposure to Agent [place] Unknown brother Malignant neoplasm of colon Unknown [...] neoplasm of lung Unknown Exposure to Agent [place] Unknown brother Malignant neoplasm of colon Unknown [...] 11, 2024 10:16am Subclinical hypothyroidism August 10:16am Chief Complaint Admit Date CC Adult Risk Stratification August 10:36am 3 month f/u-HIGH RISK September 11 10:16am [email or web address] November 17, 2024 9 :45am Chief Complaint Admit Date CC Adult Risk Stratification August 10:36am 3 month f/u-HIGH RISK September 11 10:16am [email or web address] November 17, 2024 9 :45am Referral Order November 19, 2024 1 2:33pm Reason for Visit Admit Date Anemia September [...] 11, 2024 10:16am Subclinical hypothyroidism August 10:16am Thyroid nodule November 17, 2024 9 :45am Additional Source Comments Source Comments (unrecognize d section and content) In the event this informatio n is protected by the Federal Confidentiality of Alcohol and Drug Abuse Patient Records regulations: The Federal rules restrict any use of the information to criminally investigate or prosecute any alcohol or drug abuse patient.[facility] HospitalIn the event this information is protected by the Federal Confidentiality of Alcohol and Drug Abuse Patient Records regulations: The Federal rules restrict any use of the information to criminally investigate or prosecute any alcohol or drug abuse patient.[facility] HospitalIn the event this information is protected by the Federal Confidentiality of Alcohol and Drug Abuse Patient Records regulations: The Federal rules restrict any use of the information to criminally investigate or prosecute any alcohol or drug abuse patient.[facility] HospitalIn the event this information is protected by the Federal Confidentiality of Alcohol and Drug Abuse Patient Records regulations: The Federal rules restrict any use of the information to criminally investigate or prosecute any alcohol or drug abuse patient.[facility] HospitalIn the event this information is protected by the Federal Confidentiality of Alcohol and Drug Abuse Patient Records regulations: The Federal rules restrict any use of the information to criminally investigate or prosecute any alcohol or drug abuse patient.[facility] HospitalIn the event this information is protected by the Federal Confidentiality of Alcohol and Drug Abuse Patient Records regulations: The Federal rules restrict any use of the information to criminally investigate or prosecute any alcohol or drug abuse patient.[facility] HospitalIn the event this information is protected by the Federal Confidentiality of Alcohol and Drug Abuse Patient Records regulations: The Federal rules restrict any use of the information to criminally investigate or prosecute any alcohol or drug abuse patient.[facility] Reason for Visit (unrecogniz ed section and content) Reason Comments Lab Orders Reason Comments abnormal spep Reason Comments Results Reason Comments Abnormal SPEP Reason Comments Follow-up bradycardia Specialty Diagnoses / Procedures Referred By Contac t Referred To Contact Radiology Diagnoses ASHD (arteriosclerotic heart disease) Procedures Nuclear Stress Test CHG MYOCARDIAL SPECT MULTIPLE STUDIES Holden Rosado, PHARMACOGNOSIST-DRY MAN [address] [facility] 2, [address] [address] Referral ID Status Reason Start Date Expiration Date V isits Requested Visits Authorized [id number] Pending Review 03/05/2024 03/05/2025 [address] Specialty Diagnoses / Procedures [facility] Referred To Contact CT IMAGING Diagnoses Lung nodules Procedures CT CHEST W IVCON DIAGNOSTIC COMPUTED TOMOGRAPHY THORAX W/CONTRAST Luis Mckenzie MD [address] [place] [address] [place] [address] Ct Imaging [id number] Referral ID Status Reason Start Date Expiration Date V isits Requested Visits Authorized [id number] Closed Auto-Generate d Referral 05/29/2022 06/28/2023 1 1 Reason Comments Follow-up Test resultx Specialty Diagnoses / Procedures [facility] Referred To Contact Cardiology Diagnoses ASHD (arteriosclerotic heart disease) Procedures Follow Up In Cardiology Edinson Perry, [address] [facility] 2, [address] [address] Holden Rosado, PHARMACOGNOSIST-DRY MAN [address] [facility] 2, [address] [address] Referral ID Status Reason Start Date Expiration Date V isits Requested Visits Authorized [id number] Authorized 10/17/2023 10/16/2024 1 1 Reason Comments Follow-up 6 month Specialty Diagnoses / Procedures Referred By Contac t Referred To Contact Cardiology Diagnoses ASHD (arteriosclerotic heart disease) Procedures Follow Up In Cardiology Holden Rosado, PHARMACOGNOSIST-DRY MAN [address] [facility] 2, [address] [address] Phone: tel: fax: Referral ID Status Reason Start Date Expiration Date V isits Requested Visits Authorized [id number] Authorized 04/21/2024 04/21/2025 1 1 Reason Onset Date Comments Med Refill 10/09/2024 Reason Comments Thyroid Nodule Specialty Diagnoses / Procedures Referred By Contac t Referred To Contact Otolaryngology Diagnoses Nontoxic single thyroid nodule (CMS/HCC) Procedures CT UNLISTED EVALUATION AND MANAGEMENT SERVICE Nathan Hathaway MD [address] [place] [address] Phone: tel: Reyna Esparza MD [address] [facility] [address] [place] [address] Phone: tel: fax: Referral ID Status Reason Start Date Expiration Date Visits Re quested Visits Authorized [id number] Closed 11/19/2024 05/18/2025 1 1 Reason Comments Follow-up 6 months Follow up f or Coronary Artery Disease Specialty Diagnoses / Procedures Referred By Contac t Referred To Contact Cardiology Diagnoses Essential hypertension Procedures Follow Up In Cardiology Edinson Perry DO [address] [facility] 2, [address] [address] Phone: tel: fax: Holden Rosado, PHARMACOGNOSIST-DRY MAN [address] [facility] 2, [address] [address] Phone: tel: fax: Referral ID Status Reason Start Date Expiration Date V isits Requested Visits Authorized [id number] Authorized 10/08/2024 10/08/2025 1 1 Care Teams (unrecognized sec tion and content) Team Status: Active Member Role Status Dates Nathan Hathaway DO Primary Care Provider Active Team Status: Inactive Member Role Status Dates Nathan Hathaway DO Primary Care Provide r, Attending Provider Active Start: November 17, 2024 End: November 17, 2024 Team Status: Active Member Role Status Hortencia Hathaway DO Primary Care Provide r, Attending Provider Active Start: November 19, 2024 Team Status: Inactive Member Role Status Hortencia Hathaway DO Primary Care Provide r, Attending Provider Active Start: December 16, 2024 End: December 16, 2024 Team Status: Active Member Role Status Hortencia Hathaway DO Primary Care Provide r, Attending Provider Active Start: December 18, 2024 Team Status: Inactive Member Role Status Hortencia Hathaway DO Primary Care Provide r, Attending Provider Active Start: December 29, 2024 End: December 29, 2024 Team Status: Active Member Role Status Hortencia Hathaway DO Primary Care Provide r, Attending Provider Active Start: September 04, 2024 Team Status: Inactive Member Role Status Hortencia Hathaway DO Primary Care Provide r, Attending Provider Active Start: September 11, 2024 End: September 11, 2024 Team Status: Active Member Role Status Hortencia Hathaway DO Primary Care Provide r, Attending Provider Active Start: September 12, 2024 Team Status: Inactive Member Role Status Hortencia Hathaway DO Primary Care Provide r, Attending Provider Active Start: July 16, 2024 End: July 16, 2024 Team Status: Active Member Role Status Hortencia Hathaway DO Primary Care Provider Active Start: April 30, 2024 Holden Rosado APRN Attending Provider Active S tart: April 30, 2024 Team Status: Active Member Role Status Hortencia Hathaway DO Primary [...] 2024 Team Status: Active Member Role Status Hortencia Hathaway DO Primary Care Provider Active Start: December 18, 2023 URIEL Sunshine Attending Provider Active Start : December 18, 2023 Team Status: Inactive Member Role Status Hortencia Hathaway DO Primary Care Provide r, Attending Provider Active Start: February 01, 2024 End: February 01, 2024 Blood Bank Manager Relationship Specialty Start Date End Date Nathan Hathaway DO PCP - General Internal Medicine 01/31/12 Blood Bank Manager Relationship Specialty Start Date End Date Nathan Hathaway DO PCP - General Internal Medicine 01/31/12 Blood Bank Manager Relationship Specialty Start Date End Date Nathan Hathaway DO PCP - General Internal Medicine 01/31/12 Blood Bank Manager Relationship Specialty Start Date End Date Nathan Hathaway DO PCP - General Internal Medicine 01/31/12 Team Status: Inactive Member Role Status Dates oJnna Perry , DO Attending Provider Active Nathan Hathaway DO Primary Care Provider Active Team Status: Inactive Member Role Status Dates Nathan Hathaway DO Primary Care Provider Active Fernando Ch , Emergency Provider Active Lj Ryan , DO Admit Provider, Attending Provider Active Blood Bank Manager Relationship Specialty Start Date End Date Nathan Hathaway DO PCP - General Internal Medicine 01/31/12 Blood Bank Manager Relationship Specialty Start Date End Date Nathan Hathaway DO PCP - General Internal Medicine 01/31/12 Team Status: Active Member Role Status Dates Nathan Hathaway DO Primary Care Provide r, Attending Provider Active Start: February 02, 2024 Team Status: Inactive Member Role Status Dates Nathan Hathaway DO Primary Care Provider Active Start: February 13, 2024 End: February 13, 2024 Deja Pope APRN FLEXO OPERATOR-C Attending Provider Act babar Start: February 13, 2024 End: February 13, 2024 Blood Bank Manager Relationship Specialty Start Date End Date Nathan Hathawya DO PCP - General Internal Medicine 10/03/23 [...] February 27, 2024 End: February 27, 2024 Blood Bank Manager Relationship Specialty Start Date End Date Nathan Hathaway DO PCP - General Internal Medicine 10/03/23 Blood Bank Manager Relationship Specialty Start Date End Date Nathan Hathaway DO PCP - General Internal Medicine 10/03/23 Blood Bank Manager Relationship Specialty Start Date End Date Nathan Hathaway DO PCP - General Internal Medicine 10/03/23 Blood Bank Manager Relationship Specialty Start Date End Date Nathan Hathaway DO PCP - General Internal Medicine 10/03/23 Blood Bank Manager Relationship Specialty Start Date End Date Nathan Hathaway DO PCP - General Internal Medicine 01/31/12 Blood Bank Manager Relationship Specialty Start Date End Date Nathan Hathaway DO PCP - General Internal Medicine 10/03/23 Blood Bank Manager Relationship Specialty Start Date End Date Nathan Hathaway DO PCP - General Internal Medicine 10/03/23 Blood Bank Manager Relationship Specialty Start Date End Date Nathan Hathaway MD [address] [place] [address] PCP - External PCP Internal Medicine 06/29/23 Blood Bank Manager Relationship Specialty Start Date End Date Nathan Hathaway MD [address] [place] [place] [address] PCP - External PCP Internal Medicine 06/29/23 Blood Bank Manager Relationship Specialty Start Date End Date Nathan Hathaway MD [address] [facility] [place] [address] PCP - External PCP Internal Medicine 06/29/23 Blood Bank Manager Relationship Specialty Start Date End Date Nathan Hathaway DO PCP - General Internal Medicine 10/03/23 INFORMATION SOURCE (unrecogn ized section and content) DATE CREATED AUTHOR 03/08/2023 [facility] DATE CREATED AUTHOR AUTHOR'S ORGANIZ ATION 03/09/2023 [employer] DATE CREATED AUTHOR AUTHOR'S ORGANIZ ATION 03/11/2023 [facility] [place] DATE CREATED AUTHOR AUTHOR'S ORGANIZ ATION 11/08/2023 [facility] DATE CREATED AUTHOR AUTHOR'S ORGANIZ ATION 03/17/2024 [facility] [place] DATE CREATED AUTHOR AUTHOR'S ORGANIZ ATION 11/18/2024 [facility] DATE CREATED AUTHOR AUTHOR'S ORGANIZ ATION 11/27/2024 [facility] EPIC DATE CREATED AUTHOR AUTHOR'S ORGANIZ ATION 01/14/2025 [facility] Ambulatory Goals (unrecognized section and content) Goals may [...] BE BASED ON THE PRIMARY CLINICAL RECORDS. [facility]. provides no warranty or guarantee of the accuracy or completeness of information in this document.
== END 2025-01-15 09:18 | disposition home or self-care (01) ==
LOC: MAMMO 09:17
PROVIDERS: PCP Internal Medicine; Visit Provider Internal Medicine
DX: Z12.31 Encounter for screening mammogram for malignant neoplasm of breast (principal); Z80.52 Family history of malignant neoplasm of bladder; Z80.7 Family history of other malignant neoplasms of lymphoid, hematopoietic and related tissues; Z80.0 Family history of malignant neoplasm of digestive organs; Z80.1 Family history of malignant neoplasm of trachea, bronchus and lung
CPT/HCPCS: 77063; 77067

== ENCOUNTER 2025-01-23 08:44 | Outpatient (OUT) | payer MEDICARE, SELFPAY ==
--- NOTE | 2025-01-23 09:00 | XR_ITS ---
The [place] [id number] Patient Name: LASHAUN JOAQUIN MRN: [id number] date: 1940 Sex: F Assigned Patient Location: LAB Current Patient Location: LAB Accession/Order Number: [id number] Exam Date: 01/23/2025 10:27 Report Date: 01/23/2025 10:28 At the request of: CHELSEA MAR DO Procedure: XR knee RT 4V 4 views right knee plain film COMPARISON: 02/16/2022 HISTORY: Acute posterior right knee pain. ACUTE FINDINGS: No acute findings DEGENERATIVE CHANGE: Similar marginal spurring and mild joint space narrowing. Superior patellar enthesophyte SOFT TISSUE FINDINGS: Mild soft tissue prominence. JOINT EFFUSION: None POSTOP CHANGES: None BONE MINERALIZATION: Adequate XR/XR knee RT 4V IMPRESSION: Similar degenerative change. Impression dictated by: Seth Ley M.D.01/23/2025 10:28 AM Dictation Location: [place] [address] Electronically authenticated by: [id number] Y Date: 01/23/2025 10:28
[2025-01-23 09:28] LABS: Anion Gap 14.9; BUN Creatinine Ratio 14.8; Calcium 8.9 mg/dL (8.5-10.1); Chloride 106 mmol/L (98-107); Estimated GFR (African America 43 (>=60 mL/min/1.73m^2); Estimated GFR (Non-African Ame 35 (>=60 mL/min/1.73m^2); Glucose 116 mg/dL (74-106); Potassium 3.9 mmol/L (3.5-5.1); Sodium 145 mmol/L (136-145)
== END 2025-01-23 08:45 | disposition home or self-care (01) ==
LOC: LAB 08:48
PROVIDERS: PCP Internal Medicine; Visit Provider Internal Medicine
DX: M25.561 Pain in right knee (principal); N18.32 Chronic kidney disease, stage 3b; I12.9 Hypertensive chronic kidney disease with stage 1 through stage 4 chronic kidney disease, or unspecified chronic kidney disease
CPT/HCPCS: 36415; 73564; 80048

== ENCOUNTER 2025-02-10 10:05 | Outpatient (OUT) | payer MEDICARE, SELFPAY ==
--- NOTE | 2025-02-10 10:10 | US_ITS ---
The [address] [address] Patient Name: LASHAUN JOAQUIN MRN: [id number] date: 1940 Sex: F Assigned Patient Location: US Current Patient Location: US Accession/Order Number: [id number] Exam Date: 02/10/2025 11:24 Report Date: 02/10/2025 11:33 At the request of: REYNA ESPARZA MD Procedure: US thyroid THYROID ULTRASOUND CLINICAL DATA: Follow-up nodularity COMPARISON: 09/23/2024 The right thyroid lobe measures 4.2 x 1.6 x 1.3 cm. The left lobe measures 4.6 x 1.3 x 1.2 cm. The isthmus measures 2 - 3 mm. On the right at the superior pole, there is redemonstration of a mixed echogenicity nodular area with hypo and hyperechoic components measuring 7 x 4 x 4 mm (TI-RADS 3). At the mid pole, there is a superficial mixed echogenicity area measuring 11 x 9 x 10 mm. This has not simply changed in size when measured in a comparable manner. This is still a TI-RADS 4. On the left, there is a hypoechoic nodule at the superior pole, possibly cystic measuring 5 x 3 x 4 mm. There is another suspected colloid cyst at the midpole on the left measuring 4 x 4 x 5 mm. At the left mid to lower lobe toward the isthmus, there is still an ill-defined hypoechoic area that measures 9 x 4 x 8 mm (BI-RADS 3). US/US thyroid IMPRESSION: BILATERAL THYROID NODULARITY, NOT SIGNIFICANT CHANGE. Impression dictated by: Shelli Israel M.D.02/10/2025 11:33 AM Dictation Location: [place] [address] Electronically authenticated by: [id number] Y Date: 02/10/2025 11:33
== END 2025-02-10 10:06 | disposition home or self-care (01) ==
LOC: US 10:05
PROVIDERS: PCP Internal Medicine; Visit Provider Otolaryngology
DX: E04.1 Nontoxic single thyroid nodule (principal)
CPT/HCPCS: 76536

== ENCOUNTER 2025-03-18 09:20 | Outpatient (OUT) | payer MEDICARE, SELFPAY ==
--- OUTSIDE RECORDS SUMMARY | 2025-03-18 09:30 | XMS_ITS | CCD ---
Author Organization [facility] Care Team Providers Care Fuel Pilot Engineer Name Role Phone Nathan Hathaway DO Primary Care Provider Nathan Hathaway Unavailable Unavailable Unavailable ISABELA, DR TRAN Primary Care Unavailable LIZZETTE, DR BRISSA Doherty Consulting Unavailabl e TYLER, DR KOFI Kat Admitting Unavailable JOSE ANTONIOEREBeth, DR KOFI Kat Attending Unavailable NADERER, DR KOFI Kat Consulting Unavailable MAKENNA, LUCIANA Consulting Unavailable SAHU, ANTONIO Consulting Unavailable ABRAMES, EDWARD Ochoa Consulting Unavailable BALL, DR TRAN Attending Unavailable [...] Emergency Provider DO Lj Ryan Admit Provider [phone] DO Lj Ryan Attending Provider [phone] Isabela DO Nathan Chinyere Primary Care Provider NATHAN HATHAWAY Primary Care Unavailable BALL, NATHAN E Primary Care Unavailable LUIS MCKENZIE Attending Unavailable LUIS MCKENZIE Referring Unavailable LUIS MCKENZIE Referring Unavailable BALL, NATHAN E Primary Care Unavailable BALL, NATHAN E Primary Care Unavailable PAOLO CASILLAS Attending Unavailable LUIS MCKENZIE Referring Unavailable ISABELA, NATHAN Whitlock Primary Care Unavailable ISABELA, NATHAN Whitlock Primary Care Unavailable ISABELA, NATHAN E Primary Care Unavailable LUIS MCKENZIE Attending Unavailable Nathan Hathaway DO Primary Care Provider DO Nathan Hathaway Primary Care Provider [phone] THONY Rosado Attending Provider HOLDEN ROSADO Referring Unavailable NATHAN HATHAWAY Primary Care Unavailable HOLDEN ROSADO Referring Unavailable NATHAN HATHAWAY Primary Care Unavailable Nathan Hathaway DO Primary Care Provider Nathan Hathaway MD Unavailable Nathan Hathaway DO Primary Care Provider Nathan Hathaway DO Attending Provider [phone] Nathan Hathaway DO Primary Care Provider Nathan Hathaway DO Primary Care Provider Nathan Hathaway DO Attending Provider [phone] HOLDEN ROSADO Attending Unavailable NATHAN HATHAWAY Primary Care Unavailable HOLDEN ROSADO Attending Unavailable EDINSON PERRY Referring Unavailable NATHAN HATHAWAY Primary Care Unavailable ORLANDOEDINSON ANNE Attending Unavailable HOLDEN ROSADO Referring Unavailable ISABELA, NATHAN E Primary Care Unavailable HOLDEN ROSADO Attending Unavailable ORLANDOEDINSON ANNE Referring Unavailable ISABELA, NATHAN E Primary Care Unavailable HOLDEN ROSADO Referring Unavailable ISABELA, NATHAN Whitlock Primary Care Unavailable Nathan Hathaway MD Primary Care Provider Nathan Hathaway Primary Care Unavailable Nathan Hathaway Attending Unavailable Nathan Hathaway Admitting Unavailable Isabela, Nathan Primary Care Unavailable KeJorge L wyhte Admitting Unavailable Jorge L Cruz Attending Unavailable Nathan Hathaway Primary Care Unavailable Holden Rosado Admitting Unavailable Holden Rosado Attending Unavailable Nathan Hathaway DO Primary Care Provider REYNA ESPARZA Attending Unavailable NATHAN HATHAWAY Referring Unavailable REYNA ESPARZA Attending Unavailable FERCHO TSE Attending Unavailable Nathan Hathaway DO Primary Care Provider Allergies Allergy Classification Reported Allergen(s) Allergy Type Date of Onset Reaction(s) Facility (20 sources) amLODIPine; Translations: [AMLODIPINE] Drug Allergy 07-27-20 Unknown [facility] (8 sources) Codeine / guaiFENesin; Translations: [CODEINE-GUAIFENESI N] Drug Allergy 07-27-20 Unknown [facility] (8 sources) Doxycycline; Translations: [DOXYCYCLINE HYCLATE] Drug Allergy 07-27-20 Unknown [facility] (20 sources) DULoxetine; Translations: [DULOXETINE] Drug Allergy 07-27-20 Unknown [facility] (18 sources) levoFLOXacin; Translations: [LEVOFLOXACIN] Drug Allergy 07-27-20 Unknown [facility] (18 sources) Ondansetron; Translations: [ONDANSETRON] Drug Allergy 07-27-20 Unknown [facility] Comment on above: Onset Date: 10/29/19 (20 sources) Penicillins; Translations: [PENICILLINS] Propensity to adverse reactions to drug 07-27-20 [facility] (20 sources) Sulfamethoxazole / Trimethoprim; Translations: [Bactrim] Drug Allergy 07-27-20 Unknown, Hives [facility] (8 sources) Tetracycline (class of antibiotic); Translations: [TETRACYCLINES] Propensity to adverse reactions to drug 07-27-20 Unknown [facility] (8 sources) Iodine And Iodide Containing Products; Translations: [IODINE AND IODIDE CONTAINING PRODUCTS] Drug Allergy 01-20-20 Unknown [facility] (18 sources) Tetanus And Diphtheria Toxoids; Translations: [TETANUS AND DIPHTHERIA TOXOIDS] Propensity to adverse reactions to drug 07-27-20 Unknown [facility] (20 sources) Amoxicillin Drug Allergy 02-01-20 24 Unknown, Unknown Reaction [facility] (20 sources) Codeine / guaiFENesin Drug Allergy Unknown [facility] Other (20 sources) Doxycycline Drug Allergy 12-09-19 19 Unknown, Unknown Reaction [facility] (20 sources) levoFLOXacin Drug Allergy Unknown [facility] Other (20 sources) Ondansetron; Translations: [Zofran] Drug Allergy 11-05-19 20 Unknown [facility] (20 sources) Tetanus-Diphtheria Toxoids Td Drug allergy Unknown [facility] Other (20 sources) Allopurinol Drug Allergy 11-05-19 24 Unknown [facility] (1 source) amLODIPine Drug Allergy 11-05-19 20 [facility] (1 source) Doxycycline Drug Allergy [facility] (1 source) DULoxetine Drug Allergy 11-05-19 20 [facility] (1 source) Iodine (And Iodine Containting Drugs) Drug allergy (disorder) 01-20-20 21 [facility] (1 source) Sulfamethoxazole / Trimethoprim Drug Allergy 11-05-19 20 [facility] (4 sources) Sulfonamides (Antibiotic) Allergy to substance 03-08-20 23 Rash [facility] (11 sources) Sulfamethoxazole Drug Allergy 03-09-20 23 Unknown Reaction [facility] (3 sources) Trimethoprim Drug Allergy 03-09-20 23 Unknown Reaction [facility] (20 sources) Pseudoephedrine Drug Allergy 10-29-19 Unknown [facility] Other (20 sources) Tetracycline Drug Allergy Unknown [facility] Other (20 sources) Cheratussin AC *COUGH/COLD/ALLERGY * Propensity to adverse reactions 10-29-19 Unknown [facility] Other (20 sources) Zofran *ANTIEMETICS* Propensity to adverse reactions 10-29-19 Unknown [facility] Other (5 sources) amLODIPine Drug Allergy Unknown [facility] Other (20 sources) Azithromycin; Translations: [AZITHROMYCIN] Drug Allergy 10-17-20 23 rash, Swelling [facility] (18 sources) Codeine Drug Allergy 02-01-20 24 Unknown Reaction [facility] (10 sources) guaiFENesin Drug Allergy 02-01-20 24 Unknown Reaction [facility] (10 sources) 12 Hour Decongestant Allergy to substance 02-01-20 24 Unknown Reaction [facility] Comment on above: Onset Date: 10/29/19 20 (10 sources) Cheratussin AC *COUGH/COLD/ALL Allergy to substance 02-01-20 24 Unknown Reaction [facility] Comment on above: Free Text Allergy: C heratussin AC *COUGH/COLD/ALLERGY*; Onset Date: 10/29/2019 (8 sources) Penicillins Drug Intolerance 07-27-20 21 [facility] Medications Current Medications Medication Drug Class(es) Dates Sig (Normalized) Sig (Original) AeroChamber Mini Chamber - (5 sources) Start: 04-20-2023 AeroChamber Mini Chamber - Use with MDI every 6 hours as needed inhaled every 6 hours as needed for 30 days Mar, Active [id number] 200 actuat albuterol 0.09 mg/actuat metered dose inhaler (20 sources) beta2-Adrenergic Agonist Start: 01-31-2024 albuterol HFA 90 mcg/act inhaler 01/31/2024 Active Start: 01-31-2024 albuterol HFA 90 mcg/act inhaler Every 6 hours 01/31/2024 Active Start: 01-31-2024 End: 11-26-2024 take 1 puff(s) by inhalation every six hours as needed for wheezing Albuterol Sulfate 90 mcg/actuation HFA aerosol inhaler Active 2 PUFF INHALATION Every 6 hours as needed for shortness of breath or wheezing 8.5 November 26, 2024 10:19am Start: 04-20-2023 take 2 puff(s) by in [...] for anxiety 180 90 September 11, 2024 3:19pm Start: 01-31-2024 End: 09-11-2024 take 1 tablet by mouth every eight hours as needed for anxiety Alprazolam 0.25 mg tablet Discontinued 0.25 MG PO .q8hrs as needed for Anxiety January 31, 2024 10:33am September 11, 2024 3:20pm Start: 03-22-2023 take 1 tablet by tina [...] times daily as needed for Anxiety March 08, 2023 12:00am January 31, 2024 10:39am ALPRAZolam (Briana vam) 0.25 mg disintegrating tablet [...] formoterol fumarate 0.0045 mg/actuat metered dose inhaler (7 sources) Corticosteroid, beta2-Adrenergic Agonist Start: 12-31-2024 take 2 puff(s) by inhalation every twelve hours Symbicort 160-4.5 mcg/actuation inhaler Inhale 2 puffs every 12 hours. 12/31/2024 Active Start: 12-29-2024 End: 12-31-2024 take 1 puff(s) by inhalation every twelve hours Budesonide-Formoterol 160-4.5 mcg/actuation HFA aerosol inhaler Active 2 PUFF INHALATION Every 12 hours 30.6 90 December 31, 2024 10:25am 120 actuat budesonide 0.16 mg/actuat / formoterol [...] on above: TAKE 8 TABLETS BY [facility] ON DAY ONE THEN TAKE [...] Propion-Salmeterol (20 sources) Corticosteroid, beta2-Adrenergic Agonist Start: 5 take 1 puff(s) by inhalation every twelve hours Fluticasone Propion-Salmeterol (Advair Hfa) 115-21 mcg/actuation HFA aerosol inhaler Active 2 PUFF INHALATION Every 12 hours 10 27November 26, 2024 10:19am On Hold: None Start: 11-26-2024 take 1 puff(s) by in halation every twelve hours Fluticasone Propion-Salmeterol (Advair Hfa) 115-21 mcg/actuation HFA aerosol inhaler Active 2 PUFF INHALATION Every 12 hours 10 27November 26, 2024 9:19am On Hold: None Start: 05-17-2023 End: 11-26-2024 take 1 puff(s) by inhalation twice daily Fluticasone Propion-Salmeterol (Advair Hfa) 115-21 mcg/actuation HFA aerosol inhaler Discontinued 2 PUFF INHALATION Twice daily May 17, 2023 12:00am November 26, 2024 10:19am Start: 05-17-2023 End: 11-26-2024 take 1 puff(s) [...] puffs Inhalation Twice a day Apr, Active End: 02-25-2025 take 2 puff(s) by inhalation in the morning fluticasone-salmeterol (Advair) 45-21 MCG/ACT inhaler Inhale 2 puffs in the morning and 2 puffs before bedtime. Rinse mouth with water after use to reduce aftertaste and incidence of candidiasis. Do not swallow. 02/25/2025 Discontinued (Therapy completed) Fluticasone-Salmeterol 115-21 MCG/ACT (16 sources) Start: 05-16-2023 take 2 puff(s) by inhalation twice daily Fluticasone-Salmeterol 115-21 MCG/ACT 2 puffs Inhalation Twice a day Apr, Active Start: 05-16-2023 take 2 puff(s) by in halation twice daily Fluticasone-Salmeterol 115-21 MCG/ACT 2 puffs Inhalation Twice a day for 30 days 19 Micah, 2023 Active furosemide 20 mg oral tablet (20 sources) Loop Diuretic Start: 10-06-2024 End: 12-19-2024 Furosemide 20 mg tablet Discontinued 0 .ROUTE .COMPLEX 180 October 06, 2024 1:59pm December 19, 2024 5:28pm TAKE 1 TABLET BY MOUTH 1 TO 2 TIMES DAILY NEEDED Start: 05-18-2023 End: 12-23-2024 take 1 tablet by mouth in the morning furosemide (Lasix) 20 MG tablet Take 20 mg by mouth in the morning and 20 mg in the evening. 05/18/2023 Active Start: 05-18-2023 End: 10-06-2024 take 1 tablet by mouth three times weekly Furosemide 20 mg tablet Discontinued 20 MG PO every other day May 18, 2023 11:38am October 06, 2024 2:00pm on even days 3 times a week. [...] 20 MG PO every other day March 08, 2023 12:00am May 18, 2023 11:39am on even days 3 times a week Furosemide 20 MG TAKE 1 TABLET BY MOUTH 1 TO 2 TIMES DAILY NEEDED for 90 Active gabapentin 100 mg oral capsule (20 sources) Anti-epileptic Agent Start: 08-15-2024 take 1 capsule by mouth twice daily Gabapentin 100 mg capsule Active 0 .ROUTE .COMPLEX 180 August 15, 2024 9:28am TAKE 1 CAPSULE BY MOUTH TWICE DAILY Start: 03-08-2023 End: 08-15-2024 take 1 capsule by mouth three times daily Gabapentin 100 mg capsule Discontinued 100 MG PO Twice daily March 08, 2023 12:00am August 15, 2024 9:28am may take tid if needed take 1 capsule by [facility] twice daily gabapentin (Neurontin) 100 mg capsule Take 1 capsule (100 mg) by mouth 2 times a day. Active take 1 capsule by [facility] every twenty-four hours Gabapentin 100 MG 1 [...] 2 Receptor Humaira Start: 01-31-2024 End: 02-26-2024 losartan (Cozaar) 50 MG tablet 02/17/2024 Active Start: 06-15-2023 take 1 tablet by [facility] twice daily Losartan Potassium 50 MG 1 tablet Orally twice daily May, Active take 1 tablet by [facility] once daily losartan (COZAAR) 100 mg tablet Take 100 mg by mouth once daily. Active take 1 tablet by [facility] once daily Losartan Potassium 50 MG 1 tablet Orally Once a day for 90 days Active Comment on above: Take 100 mg by mouth once daily. MULTI-VITAMIN ORAL (7 sources) MULTI-VITAMIN OR AL [...] Active 0 .ROUTE .COMPLEX November 18, 2024 8:28am TAKE 1 TABLET BY MOUTH DAILY ON AN EMPTY STOMACH FOLLOWED IN 1/2 HOUR BY BREAKFAST Start: 07-05-2021 End: 11-18-2024 take 1 tablet by mouth once daily in the morning Pantoprazole 40 mg tablet,delayed release (DR/EC) Discontinued 40 MG PO Every morning March 08, 2023 12:00am November 18, 2024 8:28am Pantoprazole Sod ium 40 MG Oral Packet Take 1 tablet by mouth on a empty stomach Quantity: 0 Refills: 0 Ordered: 07-Mar-2023 DO Active Pantoprazole Sod ium Not-Taking rosuvastatin 40 mg oral capsule (20 sources) HMG-CoA Reductase Inhibitor Start: 11-18-2024 take 1 tablet by mouth once daily Rosuvastatin 40 mg tablet Active 0 .ROUTE .COMPLEX November 18, 2024 8:24am TAKE 1 TABLET BY MOUTH DAILY Start: 02-02-2024 End: 10-08-2025 take 1 tablet by mouth once daily rosuvastatin (Crestor) 40 mg tablet Indications: Mixed hyperlipidemia Take 1 tablet (40 mg) by mouth once daily. 90 tablet 3 10/08/2024 10/08/2025 Active sacubitril 24 mg / valsartan 26 mg oral tablet (20 sources) Angiotensin 2 Receptor Humaira Start: 02-20-2024 take 1 tablet by mouth in the morning Entresto 24-26 MG tablet Take 1 tablet by mouth in the morning and 1 tablet in the evening. 02/20/2024 Active Start: 02-20-2024 End: 10-08-2024 take 1 tablet by mouth twice daily Sacubitril-Valsartan (Entresto) 24-26 mg tablet Discontinued 1 TAB PO Twice daily February 26, 2024 12:00am March 19, 2024 2:54pm triamcinolone acetonide 5 mg/ml topical cream (20 sources) Corticosteroid Start: 01-31-2024 triamcinolone (Kenalog) 0.5 % cream 01/31/2024 Active Start: 01-31-2024 triamcinolone (Kenalog) 0.5 % cream Twice daily 01/31/2024 Active Start: 01-31-2024 triamcinolone (Kenalog) 0.1 % oral paste 01/31/2024 Active Start: 01-31-2024 Triamcinolone Acetonide 0.5 % cream Active 1 APPLIC TOPICAL Twice daily January 31, 2024 12:00am Start: 08-16-2023 Triamcinolone Acetonide 0.1 % 1 [...] a day for 14 days Mar, Active 30 actuat umeclidinium 0.0625 mg/actuat / vilanterol 0.025 mg/actuat dry powder inhaler (2 sources) Anticholinergic, beta2-Adrenergic Agonist Start: 02-12-2025 Anoro Ellipta 62.5-25 MCG/ACT aerosol powder USE 1 INHALATION BY MOUTH DAILY 02/12/2025 Active valsartan 80 mg oral tablet (7 sources) Angiotensin 2 Receptor Humaira Start: 10-08-2024 [...] (Original) ascorbic acid 500 mg oral tablet (12 sources) Vitamin C Start: 03-08-2023 End: 05-17-2023 take 1 tablet by mouth once daily Ascorbic Acid (Vitamin C) (Vitamin C) 500 mg Tablet Discontinued 500 MG PO Daily March 08, 2023 12:00am May 17, 2023 10:50am aspirin 81 mg delayed release oral tablet [...] MG PO Every morning February 27, 2024 10:00am December 16, 2024 11:47am every Mon, Sun, and Sun aspirin 81 mg ca p Take by [...] mg / cholecalciferol 0.01 mg oral tablet (12 sources) Vitamin D Start: 03-08-20 End: 05-17-20 take 1 tablet by mouth once daily Calcium Carbonate-Vitamin D3 (Calcium 600 + D(3)) 600 mg-10 mcg (400 unit) Tablet Discontinued 1 TAB PO Daily March 08, 2023 12:00am May 17, 2023 10:50am carvedilol 3.125 mg oral tablet (20 sources) alpha-Adrenergic Humaira, beta-Adrenergic Humaira Start: 04-20-20 End: 11-25-19 carvedilol (Coreg) 3.125 MG tablet 04/20/2024 11/25/2024 Discontinued (Therapy completed) Start: 02-11-2024 End: 02-26-2024 take 1 tablet by mouth twice daily at mealtime Carvedilol 3.125 mg tablet Discontinued 0 .ROUTE .COMPLEX 180 February 11, 2024 7:04am February 26, 2024 10:53am TAKE 1 TABLET BY MOUTH TWICE DAILY [...] MG PO Twice daily May 18, 2023 12:00am January 31, 2024 10:34am must administer with a meal/food Start: 02-14-2023 End: 03-05-2024 take 1 tablet by mouth twice daily Carvedilol 3.125 mg tablet Discontinued 3.125 MG PO Twice daily January 31, 2024 12:00am February 11, 2024 7:04am Comment on above: TAKE 1 TABLET BY TINA TWICE A DAY WITH FOOD/MEAL cefdinir 300 mg oral capsule (9 sources) Cephalosporin Antibacterial Start: 4 End: 4 take 1 capsule by mouth twice daily Cefdinir 300 mg capsule Discontinued 300 MG PO Twice daily 14 7 February 13, 2024 12:00am February 26, 2024 10:49am irbesartan 150 mg oral tablet (20 sources) Angiotensin 2 Receptor Humaira Start: 3 End: 4 take 1 tablet by mouth once daily in the morning Irbesartan 150 mg tablet Discontinued 150 MG PO Every morning March 08, 2023 12:00am February 27, 2024 10:37am take 1 tablet by mouth twice hair ly Irbesartan 150 MG 1 tablet Orally twice daily Active levothyroxine sodium 0.075 mg oral tablet (11 sources) l-Thyroxine Start: 02-19-2024 End: 11-25-2024 take 1 tablet by mouth once daily Levothyroxine 75 mcg tablet Discontinued 75 MCG PO Daily February 26, 2024 12:00am September 15, 2024 10:40am Multivitamin preparation (7 sources) Start: 03-08-2023 End: 05-17-2023 take 1 tablet by mouth once daily Multivitamin Discontinued 1 TAB PO Daily March 08, 2023 12:00am May 17, 2023 10:50am Start: 03-08-2023 take 1 tablet by tina th once daily Multivitamin Active 1 TAB PO Daily March 08, 2023 12:00am Multivitamin Tablet (5 sources) Start: 03-08-2023 End: 05-17-2023 take 1 tablet by mouth once daily Multivitamin Tablet Discontinued 1 TAB PO Daily March 08, 2023 12:00am May 17, 2023 10:50am Start: 03-08-2023 End: 05-17-2023 take 1 tablet by mouth once daily Multivitamin Tablet Discontinued 1 TAB PO Daily March 07, 2023 11:00pm May 17, 2023 9:50am 24 hr nitroglycerin 0.2 mg/hr transdermal system (14 sources) Nitrate Vasodilator Start: 03-08-2023 End: 05-17-2023 apply 0.2 mg transdermal route every hour Nitroglycerin 0.2 mg/hr patch 24 hour Discontinued 0.2 MG TRANSDERML Daily March 08, 2023 12:00am May 17, 2023 10:50am Start: 03-08-2023 End: 05-17-2023 Nitroglycerin Discontinued 0 [...] EVERY 3 WEEKS March 08, 2023 12:00am April 22, 2024 1:22pm 3 times a week on even days [...] Discontinued 40 MG PO Every evening March 08, 2023 12:00am February 02, 2024 12:10pm Comment on above: Take 40 mg by mouth every evening. predniSONE 20 mg oral tablet (20 sources) Start: 02-28-2014 take 1 tablet by mouth every twelve hours predniSONE 20 MG 1 tablet with food or milk Orally Twice a day for 3 day(s) February, Not-Taking Psyllium Husk (Metamucil) 0.4 gram Capsule (12 sources) Start: 03-08-2023 End: 05-17-2023 Psyllium Husk (Metamucil) 0.4 gram Capsule Discontinued 0.4 GM PO Daily as needed for Constipation March 08, 2023 12:00am May 17, 2023 10:50am Start: 03-08-2023 End: 05-17-2023 Psyllium Husk (Metamucil) [...] Daily 90 90 December 18, 2023 10:31am February 27, 2024 10:38am Start: 11-23-2022 End: 05-17-2023 take 1 tablet by mouth once daily at bedtime as needed Ropinirole 0.25 mg tablet Discontinued 0.25 MG PO Daily at bedtime as needed for restless legs March 08, 2023 12:00am May 17, 2023 10:51am sulfamethoxazole 800 mg / trimethoprim 160 mg [...] 15 MG PO Daily at bedtime March 08, 2023 12:00am June 13, 2024 2:15pm Temazepam Not-Ta Comment on above: Take by mouth at bed time as needed. ticagrelor 90 mg oral tablet (16 sources) Start: 03-09-2023 End: 05-17-2023 take 1 [...] unspecified] Onset: 08-17-2015 Episodic Chronic kidney disease (5 sources) Chronic kidney disease; Translations: [Chronic kidney [...] Phys. EHR Cmte Deficiency and other anemia (9 sources) Anemia, [...] Chronic Hypertension with complications and secondary hypertension (13 sources) Hypertensive heart disease with heart failure; Translations: [Hypertensive emergency] Onset: 02-14-2023 05-17-2023 Chronic Comment on above: Problem List clean-u p per request of Phys. 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; Translations: [[facility] CURRENT USE OF ASPIRIN] Onset: 02-14-2023 Episodic Other aftercare (1 source) Other fpc (current) drug therapy; Translations: [OTH MATTRESS RENOVATOR CURRENT DRUG THERAPY] Onset: 02-14-2023 Episodic Other [...] and neck] Episodic Other connective tissue disease (1 source) Cramp in lower limb; Translations: [Sleep related leg cramps] 01-22-2025 Chronic Other connective tissue disease (1 source) Sleep related leg cramps; Translations: [Sleep related leg cramps] 01-22-2025 Chronic Other connective tissue disease (20 sources) Radial [...] adrenal gland, unspecified Chronic Other endocrine disorders (17 sources) Adrenal mass; Translations: [Other specified disorders [...] Onset: 02-08-2023 Episodic Other lower respiratory disease (11 sources) Hypoxia; Translations: [Hypoxemia] 05-17-2023 Episodic Comment [...] right hip] Episodic Other non-traumatic joint disorders (5 sources) Pain in right knee; Translations: [Chronic [...] (BMI) 33.0-33.9, adult] Onset: 10-08-2024 Chronic Other skin disorders (1 source) Localized swelling, [...] Retinal detachments; defects; vascular occlusion; and retinopathy (8 sources) Epiretinal membrane of left eye; Translations: [...] coronary angioplasty status] Onset: 10-08-2024 10-08-2024 Episodic Deficiency and other anemia (20 sources) Anemia; Translations: [Anemia, unspecified] Onset: 11-24-2024 06-04-2023 Episodic Esophageal disorders (20 sources) Esophageal disorders; Translations: [Gastroesophageal reflux disease with esophagitis without hemorrhage] Headache; including migraine (20 sources) Headache; Translations: [Headache, unspecified] Onset: 10-19-2015 Episodic Immunizations and screening for infectious disease (20 sources) Other specified abnormal immunological findings in serum; Translations: [Abnormal blood test] Onset: 11-24-2024 01-31-2024 Episodic Inflammation; infection of eye (except that caused by tuberculosis or sexually transmitteddisease) (8 sources) Blepharitis of upper and lower eyelids [...] unspecified, left shoulder] Onset: 02-08-2016 Episodic Other diseases of veins and lymphatics (20 sources) Peripheral venous insufficiency; Translations: [Venous insufficiency (chronic) (peripheral)] Onset: 11-24-2024 01-31-2024 Episodic Other eye disorders (8 sources) Dry eyes; Translations: [Dry eye syndrome of bilateral lacrimal glands] Onset: 04-28-2024 04-28-2024 Episodic Other lower respiratory disease (18 sources) Acute cardiac pulmonary edema ; Translations: [Acute pulmonary edema] Onset: 11-24-2024 05-17-2023 Episodic Comment on above: Problem List clean-u p per request of Phys. EHR Cmte Other lower respiratory disease (20 sources) Cough; Translations: [Cough, unspecified] Onset: 11-25-2014 Episodic Other lower respiratory disease (10 sources) Dyspnea; Translations: [Shortness of breath] Onset: [...] in left shoulder] Onset: 02-08-2016 Episodic Other screening for suspected conditions (not mental disorders or infectious disease) (20 sources) Encounter for screening mammogram for malignant neoplasm of breast; Translations: [Cardiovascular stress test abnormal] Onset: 11-11-2018 Episodic Comment on above: Problem List clean-u p per request of Phys. 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 Performed By: #### S CAN CBC, CK, HS TROP, BNP, PT, PTT ####[facility] [id number] Comprehensive Metabolic Pane arnoldo 02-12-2025 Albumin [Mass/Vol] 3.8 g/dL Normal 3.5-5.7 [facility] Comment on above: Performed By: #### T SH3, CMP, MG #### [address] Albumin/Globulin [Mass ratio] 1.6 {ratio} Normal [facility] Comment on above: Performed By: #### T SH3, CMP, MG #### [address] ALP [Catalytic activity/Vol] 43 U/L Normal 34-104 [facility] Comment on above: Performed By: #### T SH3, CMP, MG #### [facility] [address] ALT [Catalytic activity/Vol] 14 U/L Normal 7-52 [facility] Comment on above: Performed By: #### T SH3, CMP, MG #### [address] Anion gap [Moles/Vol] 11.4 mmol/L Normal 6.0-15.0 [facility] Comment on above: Performed By: #### T SH3, CMP, MG #### [facility] [address] AST [Catalytic activity/Vol] 19 U/L Normal 13-39 [facility] Comment on above: Performed By: #### T SH3, CMP, MG #### [facility] [address] [place] [address] [place] Bilirubin [Mass/Vol] 0.4 mg/dL Normal 0.3-1.0 [facility] Comment on above: Performed By: #### T SH3, CMP, MG #### [facility] [address] [place] [address] [place] Calcium [Mass/Vol] 9.1 mg/dL Normal 8.6-10.3 [facility] Comment on above: Performed By: #### T SH3, CMP, MG #### [facility] [address] [place] [address] [place] Chloride [Moles/Vol] 107 mmol/L Normal 98-107 [facility] Comment on above: Performed By: #### T SH3, CMP, MG #### [facility] [address] [place] [address] [place] CO2 [Moles/Vol] 27.7 mmol/L Normal 21.0-31.0 [facility] Comment on above: Performed By: #### T SH3, CMP, MG #### [facility] [address] [place] [address] [place] Creatinine [Mass/Vol] 1.28 mg/dL High 0.60-1.20 [facility] Comment on above: Performed By: #### T SH3, CMP, MG #### [facility] [address] [place] [address] [place] Creatinine Clr Calc Pharmacy 37.75 Normal [facility] Comment on above: Performed By: #### T SH3, CMP, MG #### [facility] [address] Estimated GFR 41.827 mL/Min Normal [facility] Comment on above: Performed By: #### T SH3, CMP, MG #### [facility] [address] Globulin (S) [Mass/Vol] 2.4 g/dL Normal [facility] Comment on above: Performed By: #### T SH3, CMP, MG #### [address] Glucose [Mass/Vol] 102 mg/dL High 70-100 [facility] Comment on above: Result Comment: [place] Glucose Reference Range is dependent on time and content of last meal. Glucose of more than 200 mg/dL in a nonstressed, ambulatory subject supports the diagnosis of Diabetes Mellitus. ADA recommended reference range Performed By: #### T SH3, CMP, MG #### [address] Potassium [Moles/Vol] 4.1 mmol/L Normal 3.5-5.1 [facility] Comment on above: Performed By: #### T SH3, CMP, MG #### [address] Protein [Mass/Vol] 6.2 g/dL Low 6.4-8.9 [facility] Comment on above: Performed By: #### T SH3, CMP, MG #### [address] Sodium [Moles/Vol] 142 mmol/L Normal 136-145 [facility] Comment on above: Performed By: #### T SH3, CMP, MG #### [address] Urea nitrogen [Mass/Vol] 28 mg/dL High 7-25 [facility] Comment on above: Performed By: #### T SH3, CMP, MG #### [address] Creatine Kinaseon 02-12-2025 CK [Catalytic activity/Vol] 35 U/L Normal 30-223 [facility] Comment on above: Performed By: #### S CAN CBC, CK, HS TROP, BNP, PT, PTT ####[facility] ECG 12 lead ECGon 02-12-2025 ECG 12 lead ECG [facility] Main [place] [address] [place], [place] [id number] Electrocardiograph Report Signed Patient: Lashaun Joaqiun MR#: [id number] 99 : 1940 Acct:[id number] Age/Sex: 84 / F ADM Date: 02/12/25 Loc: ER Room: Type: [facility] ER Attending Dr: Ordering Provider: Jorge L Cruz DO Date of Service: 02/12/25 ECG/ECG 12 lead ECG: Arrhythmia/Palpitations Copies to: Test Reason : Blood Pressure : 192/79 mmHG Vent. Rate : 65 BPM Atrial Rate : 65 BPM P-R Int : 156 ms QRS Dur : 72 ms QT Int : 432 ms P-R-T Axes : 44 63 59 degrees QTcB Int : 449 ms Normal sinus rhythm Confirmed by Jorge L CRUZ DO ([id number]) on 02/12/2025 10:52:00 AM Referred By: Electronically Signed By: Jorge L CRUZ DO Transcribed By: MUS Signed By Jorge L Cruz DO 0 02/12/25 1052 Normal [facility] Magnesiumon 02-12-2025 Magnesium [Mass/Vol] 2.3 mg/dL Normal 1.9-2.7 [facility] Comment on above: Performed By: #### T SH3, CMP, MG #### [address] Partial Thromboplastin Timeo n 02-12-2025 aPTT Coag (Bld) [Time] 29.8 s Normal 25.1-36.5 [facility] Comment on above: Result Comment: A he matocrit value greater than 55% may lead to inaccurate results in coagulation testing. Patients having hematocrit values >55% require a special collection tube for coagulation studies. Please contact the laboratory at [phone] for redraw instructions. PERFORMED BY: [place] [address] PATHOLOGIST [employer] RAMEZ MONTES M.D. Performed By: #### S CAN CBC, CK, HS TROP, BNP, PT, PTT ####[facility] [id number] Prothrombin Time INRon 02-12 INR Coag (PPP) [Relative time] 1.0 {INR} Normal [facility] Comment on above: Result Comment: [...] valves: 3 - 4.5 Performed By: #### S CAN CBC, CK, HS TROP, BNP, PT, PTT ####[place] [address] [address] PT Coag (PPP) [Time] 11.3 s Normal 9.0-12.9 [facility] Comment on above: Result Comment: A he matocrit value greater than 55% may lead to inaccurate results in coagulation testing. Patients having hematocrit values >55% require a special collection tube for coagulation studies. Please contact the laboratory at [phone] for redraw instructions. Performed By: #### S CAN CBC, CK, HS TROP, BNP, PT, PTT ####[place] [address] [address] Scan and CBCon 02-12-2025 Acanthocytes Slight Normal [facility] Comment on above: Performed By: #### S CAN CBC, CK, HS TROP, BNP, PT, PTT ####[address] Anisocytosis Ql (Bld) Moderate Normal [facility] Comment on above: Performed By: #### S CAN CBC, CK, HS TROP, BNP, PT, PTT ####[address] Basophils (Bld) [#/Vol] 0.0 10*3/uL Normal 0.0-0.2 [facility] Comment on above: Performed By: #### S CAN CBC, CK, HS TROP, BNP, PT, PTT ####[address] Basophils/100 WBC (Bld) 0.6 % Normal . [facility] Comment on above: Performed By: #### S CAN CBC, CK, HS TROP, BNP, PT, PTT ####[address] Eosinophils (Bld) [#/Vol] 0.1 10*3/uL Normal 0.0-0.45 [facility] Comment on above: Performed By: #### S CAN CBC, CK, HS TROP, BNP, PT, PTT ####[address] Eosinophils/100 WBC (Bld) 1.5 % Normal . [facility] Comment on above: Performed By: #### S CAN CBC, CK, HS TROP, BNP, PT, PTT ####[address] Erythrocyte distribution width (RBC) [Ratio] 13.8 % Normal 11.9-15.3 [facility] Comment on above: Performed By: #### S CAN CBC, CK, HS TROP, BNP, PT, PTT ####[address] Hematocrit (Bld) [Volume fraction] 29.7 % Low 34.0-46.4 [facility] Comment on above: Performed By: #### S CAN CBC, CK, HS TROP, BNP, PT, PTT ####[address] Hemoglobin (Bld) [Mass/Vol] 10.2 g/dL Low 11.8-15.4 [facility] Comment on above: Performed By: #### S CAN CBC, CK, HS TROP, BNP, PT, PTT ####[address] Lymphocytes (Bld) [#/Vol] 0.9 10*3/uL Low 1.00-4.8 [facility] Comment on above: Performed By: #### S CAN CBC, CK, HS TROP, BNP, PT, PTT ####[address] Lymphocytes/100 WBC (Bld) 13.6 % Normal . [facility] Comment on above: Performed By: #### S CAN CBC, CK, HS TROP, BNP, PT, PTT ####[address] MCH (RBC) [Entitic mass] 28.9 pg Normal 24.7-34.3 [facility] Comment on above: Performed By: #### S CAN CBC, CK, HS TROP, BNP, PT, PTT ####[address] MCV (RBC) [Entitic vol] 83.9 fL Normal 80-100 [facility] Comment on above: Performed By: #### S CAN CBC, CK, HS TROP, BNP, PT, PTT ####[address] Mean Corpuscular HGB Conc 34.5 g/dL Normal 32.0-35.0 [facility] Comment on above: Performed By: #### S CAN CBC, CK, HS TROP, BNP, PT, PTT ####[address] Microcytosis Moderate Normal [facility] Comment on above: Performed By: #### S CAN CBC, CK, HS TROP, BNP, PT, PTT ####[address] Monocytes (Bld) [#/Vol] 0.4 10*3/uL Normal 0.0-0.8 [facility] Comment on above: Performed By: #### S CAN CBC, CK, HS TROP, BNP, PT, PTT ####[address] Monocytes/100 WBC (Bld) 21.49 % High 0.00-20.00 [facility] Comment on above: Result Comment: For adults in ED, MDW > 20.0 may be associated with a higher risk of sepsis during the first 12 hrs of hospital admission Performed By: #### S CAN CBC, CK, HS TROP, BNP, PT, PTT ####[address] Monocytes/100 WBC (Bld) 6.6 % Normal . [facility] Comment on above: Performed By: #### S CAN CBC, CK, HS TROP, BNP, PT, PTT ####[address] Neutrophils (Bld) [#/Vol] 4.9 10*3/uL Normal 1.8-7.7 [facility] Comment on above: Performed By: #### S CAN CBC, CK, HS TROP, BNP, PT, PTT ####[address] Neutrophils/100 WBC (Bld) 77.7 % Normal . [facility] Comment on above: Performed By: #### S CAN CBC, CK, HS TROP, BNP, PT, PTT ####[address] NRBC% 0.1 /100{WBC} Normal 0-0.5 [facility] Comment on above: Performed By: #### S CAN CBC, CK, HS TROP, BNP, PT, PTT ####[address] Ovalocytes Slight Normal [facility] Comment on above: Performed By: #### S CAN CBC, CK, HS TROP, BNP, PT, PTT ####[address] Platelet Estimate Normal Normal Normal [facility] Comment on above: Performed By: #### S CAN CBC, CK, HS TROP, BNP, PT, PTT ####[address] Platelet mean volume (Bld) [Entitic vol] 7.7 fL Normal 6.3-10.7 [facility] Comment on above: Performed By: #### S CAN CBC, CK, HS TROP, BNP, PT, PTT ####[address] Platelet Morphology Normal Normal Normal [facility] Comment on above: Result Comment: PERF ORMED BY: [facility] [address] [place] [address] PATHOLOGIST [employer] RAMEZ MONTES M.D. Performed By: #### S CAN CBC, CK, HS TROP, BNP, PT, PTT ####[address] Platelets (Bld) [#/Vol] 383 10*3/uL Normal 150-450 [facility] Comment on above: Performed By: #### S CAN CBC, CK, HS TROP, BNP, PT, PTT ####[address] Poikilocytosis Moderate Normal [facility] Comment on above: Performed By: #### S CAN CBC, CK, HS TROP, BNP, PT, PTT ####[address] RBC (Bld) [#/Vol] 3.54 10*6/uL Low 3.60-5.00 [facility] Comment on above: Performed By: #### S CAN CBC, CK, HS TROP, BNP, PT, PTT ####[address] WBC (Bld) [#/Vol] 6.3 10*3/uL Normal 3.8-11.6 [facility] Comment on above: Performed By: #### S CAN CBC, CK, HS TROP, BNP, PT, PTT ####[address] WBC (Bld) [#/Vol] 7.6 10*3/uL Normal 3.8-11.6 [facility] Comment on above: Performed By: #### S CAN CBC, CK, HS TROP, BNP, PT, PTT ####[address] Thyroid Stimulating Hormoneo n 02-12-2025 TSH Qn 6.48 m[IU]/L High 0.45-5.33 [facility] Comment on above: Result Comment: PERF ORMED BY: [place] [address] PATHOLOGIST [employer] RAMEZ MONTES M.D. Performed By: #### T SH3, CMP, MG #### [facility] [address] [place] [address] Troponin I High Sensitivityo n 02-12-2025 Troponin I High Sensitivity 10 Normal 0-15 [facility] Comment on above: Result Comment: The Troponin units of report have been changed to meet the Chest Pain Accreditation requirement, element EC5.M1l2. Troponin units are changed from pg/ml to ng/L. Also, the decimal is removed and results are in whole numbers. PERFORMED BY: [place] [address] PATHOLOGIST [employer] RAMEZ MONTES M.D. Performed By: #### H S TROP ####[place] [id number] [facility] Troponin I High Sensitivity 10 Normal 0-15 [facility] Comment on above: Result Comment: The Troponin units of report have been changed to meet the Chest Pain Accreditation requirement, element EC5.M1l2. Troponin units are changed from pg/ml to ng/L. Also, the decimal is removed and results are in whole numbers. PERFORMED BY: [place] [address] PATHOLOGIST [employer] RAMEZ MONTES M.D. Performed By: #### S CAN CBC, CK, HS TROP, BNP, PT, PTT ####[address] XR chest 2V*on 02-12-2025 XR chest 2V* [facility] Main [place] [address] [place] [address] XRay Report Signed Patient: Lashaun Joaquin MR#: [id number] 99 : 1940 Acct:[id number] Age/Sex: 84 / F ADM Date: 02/12/25 Loc: ER Room: Type: [facility] ER Attending Dr: Copies to: Jorge L Cruz DO Ordering Provider: Jorge L Cruz DO Date of Service: 02/12/25 XR/XR chest 2V*: Arrhythmia/Palpitations Chest 2 views CLINICAL HISTORY: Heart racing. Shortness of breath and leg swelling COMPARISON: Chest 02/28/2014 FINDINGS: Heart normal in size. No consolidation pneumothorax pleural effusion or free air. XR/XR chest 2V* IMPRESSION: NO ACUTE CARDIOPULMONARY ABNORMALITY. Impression dictated by: Epifanio Lyon Jr., D.OManuel02/12/2025 8:16 AM Dictation Location: [place] [address] Transcribed By: [facility] 02/12/25 0816 Dictated By: Epifanio Lyon Jr, DO 02/12/25 0816 Signed By: 02/12/25 0816 Normal [facility] [place] [address] Ultrasound Report Signed Patient: LASHAUN JOAQUIN MR#: [id number] : 1940 Acct:[id number] Age/Sex: 84 / F ADM Date: 02/10/25 Loc: Attending Dr: Reyna Esparza M.D. Ordering Physician: Reyna Esparza M.D. Date of Service: 02/10/25 Procedure(s): US thyroid Accession Number(s): [id number] cc: Nathan Hathaway D.O.; Reyna Esparza M.D. [place] [id number] Patient Name: LASHAUN JOAQUIN MRN: [id number] date: 1940 Sex: F Assigned Patient Location: Current Patient Location: US Accession/Order Number: [id number] Exam Date: 02/10/2025 11:24 Report Date: 02/10/2025 11:33 At the request of: REYNA ESPARZA MD Procedure: US thyroid THYROID ULTRASOUND CLINICAL DATA: Follow-up nodularity COMPARISON: 09/23/2024 The right thyroid lobe measures 4.2 x 1.6 x 1.3 cm. The left lobe measures 4.6 x 1.3 x 1.2 cm. The isthmus measures 2 - 3 mm. On the right at the superior pole, there is redemonstration of a mixed echogenicity nodular area with hypo and hyperechoic components measuring 7 x 4 x 4 mm (TI-RADS 3). At the mid pole, there is a superficial mixed echogenicity area measuring 11 x 9 x 10 mm. This has not simply changed in size when measured in a comparable manner. This is still a TI-RADS 4. On the left, there is a hypoechoic nodule at the superior pole, possibly cystic measuring 5 x 3 x 4 mm. There is another suspected colloid cyst at the midpole on the left measuring 4 x 4 x 5 mm. At the left mid to lower lobe toward the isthmus, there is still an ill-defined hypoechoic area that measures 9 x 4 x 8 mm (BI-RADS 3). US/US thyroid IMPRESSION: BILATERAL THYROID NODULARITY, NOT SIGNIFICANT CHANGE. Impression dictated by: Shelli Israel M.D.02/10/2025 11:33 AM Dictation Location: [place] [address] Electronically authenticated by: [id number] Y Date: 02/10/2025 11:33 Dictated By: Shelil Israel M.D. Signed By: 02/10/25 1136 DD/ 1133 TD/TT: Heel Turner: [facility] Radiology, Radiologi MD tana - 02/10/2025 [place] [address] Ultrasound Report Signed Patient: LASHAUN JOAQUIN MR#: [id number] : 1940 Acct:[id number] Age/Sex: 84 / F ADM Date: 02/10/25 Loc: US Attending Dr: Reyna Esparza M.D. Ordering Physician: Reyna Esparza M.D. Date of Service: 02/10/25 Procedure(s): US thyroid Accession Number(s): [id number] cc: Nathan Hathaway D.O.; Reyna Esparza M.D. The [place] [address] Patient Name: LASHAUN JOAQUIN MRN: [id number] date: 1940 Sex: F Assigned Patient Location: US Current Patient Location: US Accession/Order Number: [id number] Exam Date: 02/10/2025 11:24 Report Date: 02/10/2025 11:33 At the request of: REYNA ESPARZA MD Procedure: US thyroid THYROID ULTRASOUND CLINICAL DATA: Follow-up nodularity COMPARISON: 09/23/2024 The right thyroid lobe measures 4.2 x 1.6 x 1.3 cm. The left lobe measures 4.6 x 1.3 x 1.2 cm. The isthmus measures 2 - 3 mm. On the right at the superior pole, there is redemonstration of a mixed echogenicity nodular area with hypo and hyperechoic components measuring 7 x 4 x 4 mm (TI-RADS 3). At the mid pole, there is a superficial mixed echogenicity area measuring 11 x 9 x 10 mm. This has not simply changed in size when measured in a comparable manner. This is still a TI-RADS 4. On the left, there is a hypoechoic nodule at the superior pole, possibly cystic measuring 5 x 3 x 4 mm. There is another suspected colloid cyst at the midpole on the left measuring 4 x 4 x 5 mm. At the left mid to lower lobe toward the isthmus, there is still an ill-defined hypoechoic area that measures 9 x 4 x 8 mm (BI-RADS 3). US/US thyroid IMPRESSION: BILATERAL THYROID NODULARITY, NOT SIGNIFICANT CHANGE. Impression dictated by: Shelli Israel M.D.02/10/2025 11:33 AM Dictation Location: [place] [address] Electronically authenticated by: [id number] Y Date: 02/10/2025 11:33 Dictated By: Shelli Israel M.D. Signed By: 02/10/25 1136 DD/ 1133 TD/TT: Heel Turner: [facility] Radiology Study observation (narrative) [facility] US Thyroid glandOrdered By: Radiologist Radiology on 02-10-2025 [facility] Work Phone: Laboratory - Chemistry and C hemistry - challengeon 12-29-2024 Bilirubin Ql (U) Negative [facility] Glucose (U) [Mass/Vol] Negative [facility] Ketones Ql (U) Negative [facility] pH (U) 5 [pH] [facility] Specific gravity (U) [Rel density] 1.000 [facility] Urobilinogen (U) [Mass/Vol] Negative [facility] Laboratory - Specimen inform ationon 12-29-2024 Appearance (U) clear [facility] Color (U) yellow [facility] Laboratory - Urinalysison Leukocyte esterase Test strip Ql (U) Negative [facility] Nitrite Ql (U) Negative [facility] Protein Ql (U) 0.2 [facility] No Panel Informationon 12-29 Urine Occult Blood ++ [facility] Estimated glomerular filtrat ion rate (GFR) non- Americanon 12-18-2024 GFR/1.73 sq M.predicted among non-blacks MDRD (S/P/Bld) [Vol rate/Area] Estimated glomerular filtration rate (GFR) non- Low >=60 mL/min/1.73 m 2 [facility] Laboratory - Chemistry and C hemistry - challengeon 12-18-2024 Calcium [Mass/Vol] 8.9 mg/dL 8.5-10.1 [facility] Chloride [Moles/Vol] 105 mmol/L 98-107 [facility] CO2 [Moles/Vol] 30.4 mmol/L 21.0-32.0 [facility] Creatinine [Mass/Vol] 1.57 mg/dL High 0.55-1.02 [facility] Free T4 [Mass/Vol] 0.90 ng/dL 0.76-1.46 [facility] GFR/1.73 sq M.predicted MDRD (S/P/Bld) [Vol rate/Area] 38 mL/min/{1.73_m2} Low >=60 mL/min/1.73 m 2 [facility] Glucose [Mass/Vol] 119 mg/dL High 74-106 [facility] Potassium [Moles/Vol] 4.1 mmol/L 3.5-5.1 [facility] Sodium [Moles/Vol] 143 mmol/L 136-145 [facility] TSH Qn 2.650 m[IU]/L 0.358-3.740 [facility] Urea nitrogen [Mass/Vol] 28.0 mg/dL High 7.0-18.0 [facility] Urea nitrogen/Creatinine [Mass ratio] 17.8 mg/mg [facility] Serum or plasma anion gap de terminationon 12-18-2024 Anion gap [Moles/Vol] Serum or plasma an ion gap determination [facility] INR in Platelet poor plasma by Coagulation assayOrdered By: Nathan Hathaway on 11-17-2024 INR Coag (PPP) [Relative time] INR in Platelet poor plasma by Coagulation assay [facility] Comment on above: INR Therapeutic Rang e [...] [id number] Received: 11/17/24 Status: SERENITY Rojas Num: [id number] Spec Type: Cytology Subm Dr: Seth Ley DO Tissues: A FNA SLIDES PATH (FNA THYROID) Procedures: -, DIFF QWIK/3, PAPSTN/4 Age/ Patient Sex Location Account Attending Physician Lashaun Joaquin 84/F UL [id number] Nathan Hathaway DO SPEC NUM: [id number] RECD: 11/17/24-1307 STATUS: SERENITY ROJAS NUM: [id number] JED: 11/17/24- [facility] DR: Seth Ley DO ENTERED: 11/17/24-[address]: Nathan Hathaway DO SPEC TYPE: Cytology DEPT: CNG ENTERED BY: [id number] RECV BY: [id number] ORDERED: -, DIFF QWIK/3, PAPSTN/4 ORDERED: -, DIFF QWIK/3, PAPSTN/4 Pathological Diagnosis Thyroid nodule, US-guided FNA: Satisfactory for evaluation. Benign ([place] category I). Clinical Information Thyroid Nodule,adrenal nodule, [...] additional pass requested. 11/17/2024, 12:20 PM Specimen: [id number] Received: 11/17/24 Status: SERENITY Rojas Num: [id number] Spec Type: Cytology Subm Dr: Seth Ley DO Tissues: A FNA SLIDES PATH (FNA THYROID) Procedures: -, DIFF QWIK/3, PAPSTN/4 Patient: Kemar Joaquinn [id number] (Continued) Specimen: [id number] Received: 11/17/24 (Continued) Signed (signature on file) Lala Mast MD 11/18/24 0857 Specimen: [id number] Received: 11/17/24 Status: SERENITY Rojas Num: [id number] Spec Type: Cytology Subm Dr: Seth Ley DO Tissues: A FNA SLIDES PATH (FNA THYROID) Procedures: -, DIFF QWIK/3, PAPSTN/4 Patient: JuddLashaun [id number] (Continued) Specimen: [id number] Received: 11/17/24 (Continued) CPT Codes 07289, 69705 Specimen: [id number] Received: 11/17/24-1308 Status: SERENITY Rojas Num: [id number] Spec Type: Cytology Subm Dr: Seth Ley DO Tissues: A FNA SLIDES PATH (FNA THYROID) Procedures: -, DIFF QWIK/3, PAPSTN/4 Patient: Kemar Joaquinn [id number] (Continued) Signed (signature on file) Lala Mast MD 11/18/24 0857 Normal [facility] Partial Thromboplastin Timeo n 11-17-2024 aPTT Coag (Bld) [Time] 28.9 s Normal 25.1-36.5 [facility] Comment on above: Result Comment: A he matocrit value greater than 55% may lead to inaccurate results in coagulation testing. Patients having hematocrit values >55% require a special collection tube for coagulation studies. Please contact the laboratory at [phone] for redraw instructions. PERFORMED BY: [address] [place] [address] PATHOLOGIST [employer] RAMEZ MONTES M.D. Performed By: #### P TT, PT #### [place] [id number] [facility] Platelet Counton 11-17-2024 Platelets (Bld) [#/Vol] 253 10*3/uL Normal 150-450 [facility] Comment on above: Result Comment: PERF ORMED BY: [place] [address] PATHOLOGIST [employer] RAMEZ MONTES M.D. Performed By: #### P LT #### [address] Platelets Auto (Bld) [#/Vol] Ordered By: Nathan Hathaway on 11-17-2024 Platelets (Bld) [#/Vol] Platelets [#/volume] in Blood by Automated count 150-450 [facility] Prothrombin Time INRon 11-17 INR Coag (PPP) [Relative time] 1.0 {INR} Normal [facility] Comment on above: Result Comment: [...] Performed By: #### P TT, PT #### [address] PT Coag (PPP) [Time] 11.9 s Normal 9.0-12.9 [facility] Comment on above: Result Comment: A he matocrit value greater than 55% may lead to inaccurate results in coagulation testing. Patients having hematocrit values >55% require a special collection tube for coagulation studies. Please contact the laboratory at [phone] for redraw instructions. Performed By: #### P TT, PT #### [address] Prothrombin time (PT)Ordered By: Nathan Hathaway on 11-17-2024 PT Coag (PPP) [Time] Prothrombin time (PT) 9.0- 12.9 [facility] Comment on above: A hematocrit value g reater than 55% may lead to inaccurate results in coagulation testing. Patients having hematocrit values >55% require a special collection tube for coagulation studies. Please contact the laboratory at [phone] for redraw instructions. US needle aspirationon 11-17 US needle aspiration [facility] Main [place] [address] [place], [place] [id number] Ultrasound Report Signed Patient: Lashaun Joaquin MR#: [id number] : 1940 Acct:[id number] Age/Sex: 84 / F ADM Date: 11/17/24 Loc: Room: Type: [facility] Attending Dr: Nathan Hathaway DO [...] Seth Ley M.D.11/17/2024 12:41 PM Dictation Location: [place] [address] Tech: Deja Ruel Transcribed By: [facility] 11/17/24 1241 Dictated By: Seth Ley DO 11/17/24 1159 Signed By: 11/17/24 1241 Normal [facility] aPTT in Platelet poor plasma by Coagulation assayOrdered By: Nathan Hathaway on 11-17-2024 aPTT Coag (PPP) [Time] Activated partial thromboplastin time (aPTT) in platelet poor plasma by coagulation a 25.1-36.5 [facility] Comment on above: A hematocrit value g reater than 55% may lead to inaccurate results in coagulation testing. Patients having hematocrit values >55% require a special collection tube for coagulation studies. Please contact the laboratory at [phone] for redraw instructions. Estimated glomerular filtrat ion rate (GFR) non- Americanon 09-12-2024 GFR/1.73 sq M.predicted among non-blacks MDRD (S/P/Bld) [Vol rate/Area] Estimated glomerular filtration rate (GFR) non- Low >=60 mL/min/1.73 m 2 [facility] Laboratory - Chemistry and C hemistry - challengeon 09-12-2024 Calcium [Mass/Vol] 8.6 mg/dL 8.5-10.1 [facility] Chloride [Moles/Vol] 108 mmol/L High 98-107 [facility] CO2 [Moles/Vol] 27.0 mmol/L 21.0-32.0 [facility] Creatinine [Mass/Vol] 1.39 mg/dL High 0.55-1.02 [facility] Free T4 [Mass/Vol] 0.80 ng/dL 0.76-1.46 [facility] GFR/1.73 sq M.predicted MDRD (S/P/Bld) [Vol rate/Area] 44 mL/min/{1.73_m2} Low >=60 mL/min/1.73 m 2 [facility] Glucose [Mass/Vol] 85 mg/dL 74-106 [facility] Potassium [Moles/Vol] 4.5 mmol/L 3.5-5.1 [facility] Sodium [Moles/Vol] 144 mmol/L 136-145 [facility] TSH Qn 3.767 m[IU]/L High 0.358-3.740 [facility] Urea nitrogen [Mass/Vol] 20.0 mg/dL High 7.0-18.0 [facility] Urea nitrogen/Creatinine [Mass ratio] 14.4 mg/mg [facility] Serum or plasma anion gap de terminationon 09-12-2024 Anion gap [Moles/Vol] Serum or plasma an ion gap determination [facility] Estimated glomerular filtrat ion rate (GFR) non- Americanon 05-20-2024 GFR/1.73 sq M.predicted among non-blacks MDRD (S/P/Bld) [Vol rate/Area] 39 mL/min/{1.73_m2} Low >=60 [facility] Laboratory - Chemistry and C hemistry - challengeon 05-20-2024 Calcium [Mass/Vol] 8.8 mg/dL 8.5-10.1 [facility] Chloride [Moles/Vol] 106 mmol/L 98-107 [facility] CO2 [Moles/Vol] 30.8 mmol/L 21.0-32.0 [facility] Creatinine [Mass/Vol] 1.30 mg/dL High 0.55-1.02 [facility] GFR/1.73 sq M.predicted MDRD (S/P/Bld) [Vol rate/Area] 48 mL/min/{1.73_m2} Low >=60 [facility] Glucose [Mass/Vol] 89 mg/dL 74-106 [facility] Potassium [Moles/Vol] 4.3 mmol/L 3.5-5.1 [facility] Sodium [Moles/Vol] 143 mmol/L 136-145 [facility] Urea nitrogen [Mass/Vol] 24.0 mg/dL High 7.0-18.0 [facility] Urea nitrogen/Creatinine [Mass ratio] 18.5 mg/mg [facility] Serum or plasma anion gap de terminationon 05-20-2024 Anion gap [Moles/Vol] 10.5 mmol/L [facility] Estimated glomerular filtrat ion rate (GFR) non- Americanon 04-30-2024 GFR/1.73 sq M.predicted among non-blacks MDRD (S/P/Bld) [Vol rate/Area] 37 mL/min/{1.73_m2} Low >=60 [facility] Laboratory - Chemistry and C hemistry - challengeon 04-30-2024 Calcium [Mass/Vol] 8.5 mg/dL 8.5-10.1 [facility] Chloride [Moles/Vol] 106 mmol/L 98-107 [facility] CO2 [Moles/Vol] 28.7 mmol/L 21.0-32.0 [facility] Creatinine [Mass/Vol] 1.36 mg/dL High 0.55-1.02 [facility] GFR/1.73 sq M.predicted MDRD (S/P/Bld) [Vol rate/Area] 45 mL/min/{1.73_m2} Low >=60 [facility] Glucose [Mass/Vol] 98 mg/dL 74-106 [facility] Potassium [Moles/Vol] 4.3 mmol/L 3.5-5.1 [facility] Sodium [Moles/Vol] 142 mmol/L 136-145 [facility] Urea nitrogen [Mass/Vol] 26.0 mg/dL High 7.0-18.0 [facility] Urea nitrogen/Creatinine [Mass ratio] 19.1 mg/mg [facility] Serum or plasma anion gap de terminationon 04-30-2024 Anion gap [Moles/Vol] 11.6 mmol/L [facility] NM Heart Perfusion W stress [...] Faustino Zuniga 03/12/2024 4:34 PM Dictation workstation: [id number] Interpreted By: Faustino Zuniga and Giannuzzi Michael STUDY: MYOCARDIAL PERFUSION STRESS TEST WITH LEXISCAN Performing facility: [facility], [address] [place] [address], [address], [address] Provider: Holden Rosado RN, VAULT PERSON PCP: Dr. Ksenia Hathaway Supervising provider: Anthony Perry DO, [facility] INDICATION: ASHD HISTORY: Gender: F; Age: 83 y/o ; Height: HT 165.1 cm cm; Weight: WT 88.905 kg kg. CAD; High Cholesterol; HTN; Fatigue; Quit smoking 44 years ago. Cardiac catheterization on 2022. PTCA on 2022. COMPARISON: Previous nuclear testing completed [id number] at [facility]. ACCESSION NUMBER(S): [id number] ORDERING CLINICIAN: HOLDEN ROSADO TECHNIQUE: ONE DAY [...] Faustino Zuniga MD - 03/12/2024 Interpreted By: Fautsino Zuniga and Giannuzzi Michael STUDY: MYOCARDIAL PERFUSION STRESS TEST WITH LEXISCAN Performing facility: [facility], [address] [place] [address], [address], [address] Provider: Holden Rosado RN, VAULT PERSON PCP: Dr. Ksenia Hathaway Supervising provider: Anthony Perry DO, [facility] INDICATION: ASHD HISTORY: Gender: F; Age: 83 y/o ; Height: HT 165.1 cm cm; Weight: WT 88.905 kg kg. CAD; High Cholesterol; HTN; Fatigue; Quit smoking 44 years ago. Cardiac catheterization on 2022. PTCA on 2022. COMPARISON: Previous nuclear testing completed at [facility]. ACCESSION NUMBER(S): [id number] ORDERING CLINICIAN: HOLDEN ROSADO TECHNIQUE: ONE DAY [...] Faustino Zuniga 03/12/2024 4:34 PM Dictation workstation: [id number] [facility] Work Phone: Radiology Study observation (narrative) [facility] Work Phone: NM Heart Perfusion W stress and W radionuclide IVOrdered By: Faustino Zuniga on 03-12-2024 [facility] Work Phone: NUCLEAR STRESS TESTon 2023 NUCLEAR STRESS TEST Interpreted By: Faustino Zuniga and Giannuzzi Michael STUDY: MYOCARDIAL PERFUSION STRESS TEST WITH LEXISCAN Performing facility: [facility], [address] [place] [address], [address], [place] [id number] [facility] Provider: Holden Rosado RN, VAULT PERSON PCP: Dr. Ksenia Hathaway Supervising provider: Anthony Perry DO [facility] INDICATION: ASHD HISTORY: Gender: F; Age: 83 y/o ; Height: HT 165.1 cm cm; Weight: WT 88.905 kg kg. CAD; High Cholesterol; HTN; Fatigue; Quit smoking 44 years ago. Cardiac catheterization on 2022. PTCA on 2022. COMPARISON: Previous nuclear testing completed [id number] at [facility]. ACCESSION NUMBER(S): [id number] ORDERING CLINICIAN: HOLDEN ROSADO TECHNIQUE: ONE DAY [...] Faustino Zuniga 03/12/2024 4:34 PM Dictation workstation: [id number] [facility] Basic Metabolic Panelon 05-0 GFR/1.73 sq M.predicted MDRD (S/P/Bld) [Vol rate/Area] 39.134 mL/min/{1.73_m2} Normal [facility] Comment on above: Performed By: #### B MP ####[place] [address] [place] [address] [place] Calcium [Mass/volume] in Ser um or PlasmaOrdered By: Holden Rosado on 03-05-2024 Calcium [Mass/Vol] 9.2 mg/dL Normal 8.6-10.3 [facility] Comment on above: Result Comment: PERF ORMED BY: [facility] [address] [place] [address] PATHOLOGIST [employer] JAMAAL MO M.D. Performed By: #### B MP ####[place] [id number] [facility] Carbon dioxide, total [Moles /volume] in Serum or PlasmaOrdered By: Holden Rosado on 03-05-2024 CO2 [Moles/Vol] 32.1 mmol/L High 21.0-31.0 [facility] Comment on above: Performed By: #### B MP ####[address] [address] [place] Chloride [Moles/volume] in S courtney or PlasmaOrdered By: Holden Rosado on 03-05-2024 Chloride [Moles/Vol] 104 mmol/L Normal 98-107 [facility] Comment on above: Performed By: #### B MP ####[address] [address] [place] Creatinine [Mass/volume] in Serum or PlasmaOrdered By: Holden Rosado on 03-05-2024 Creatinine [Mass/Vol] 1.36 mg/dL High 0.60-1.20 [facility] Comment on above: Performed By: #### B MP ####[place] [id number] [place] Glucose [Mass/volume] in Ser um or PlasmaOrdered By: Holden Rosado on 03-05-2024 Glucose [Mass/Vol] 79 mg/dL Normal 70-100 [facility] Comment on above: ADA recommended refe rence rangeRandom Glucose Reference Range is dependent on time and content of last meal. Glucose of more than 200 mg/dL in a nonstressed, ambulatory subject supports the diagnosis of Diabetes Mellitus. Result Comment: [place] Glucose Reference Range is dependent on time and content of last meal. Glucose of more than 200 mg/dL in a nonstressed, ambulatory subject supports the diagnosis of Diabetes Mellitus. ADA recommended reference range Performed By: #### B MP ####[address] No Panel InformationOrdered By: Holden Rosado on 03-05-2024 Estimated GFR (CKD-EPI) 39.134 mL/Min [facility] Creatinine Clearance (Chem N/A [facility] Potassium [Moles/volume] in Serum or PlasmaOrdered By: Holden Rosado on 03-05-2024 Potassium [Moles/Vol] 5.2 mmol/L High 3.5-5.1 [facility] Comment on above: Performed By: #### B MP ####[address] Serum or plasma anion gap de terminationOrdered By: Holden Rosado on 03-05-2024 Anion gap [Moles/Vol] 10.1 mmol/L Normal 6.0-15.0 [facility] Comment on above: Performed By: #### B MP ####[address] Sodium [Moles/volume] in Ser um or PlasmaOrdered By: Holden Rosado on 03-05-2024 Sodium [Moles/Vol] 141 mmol/L Normal 136-145 [facility] Comment on above: Performed By: #### B MP ####[address] Urea nitrogen [Mass/volume] in Serum or PlasmaOrdered By: Holden Rosado on 03-05-2024 Urea nitrogen [Mass/Vol] 26 mg/dL High 7-25 [facility] Comment on above: Performed By: #### B MP ####[address] Basophils Auto (Bld) [#/Vol] on 02-20-2024 Basophils (Bld) [#/Vol] 0.0 10 3/uL 0.0-0.1 [facility] Basophils/100 WBC Auto (Bld) on 02-20-2024 Basophils/100 WBC (Bld) 0.8 % 0.2-2.0 [facility] Eosinophils/100 WBC Auto (Bl d)on 02-20-2024 Eosinophils/100 WBC (Bld) 2.8 % 0.9-7.0 [facility] Erythrocyte distribution wid th Auto (RBC) [Ratio]on 02-20-2024 Erythrocyte distribution width (RBC) [Ratio] 13.1 % 11.0-15.0 [facility] Estimated glomerular filtrat ion rate (GFR) non- Americanon 02-20-2024 GFR/1.73 sq M.predicted among non-blacks MDRD (S/P/Bld) [Vol rate/Area] 49 mL/min/{1.73_m2} >=60 [facility] Globulin Calc (S) [Mass/Vol] on 02-20-2024 Globulin (S) [Mass/Vol] 2.7 g/dL [facility] Hematocrit Auto (Bld) [Volum e fraction]on 02-20-2024 Hematocrit (Bld) [Volume fraction] 29.2 % 36.0-48.0 [facility] Hemoglobin [Mass/volume] in Bloodon 02-20-2024 Hemoglobin (Bld) [Mass/Vol] 9.5 g/dL 12.0-16.0 [facility] Laboratory - Chemistry and C hemistry - challengeon 02-20-2024 Albumin [Mass/Vol] 2.9 g/dL 3.4-5.0 [facility] ALP [Catalytic activity/Vol] 44 U/L 46-116 [facility] ALT [Catalytic activity/Vol] 13 U/L 14-59 [facility] AST [Catalytic activity/Vol] 14 U/L 15-37 [facility] Bilirubin [Mass/Vol] 0.6 mg/dL 0.2-1.0 [facility] Calcium [Mass/Vol] 8.9 mg/dL 8.5-10.1 [facility] Chloride [Moles/Vol] 107 mmol/L 98-107 [facility] CO2 [Moles/Vol] 27.9 mmol/L 21.0-32.0 [facility] Creatinine [Mass/Vol] 1.08 mg/dL 0.55-1.02 [facility] GFR/1.73 sq M.predicted MDRD (S/P/Bld) [Vol rate/Area] 59 mL/min/{1.73_m2} >=60 [facility] Glucose [Mass/Vol] 83 mg/dL 74-106 [facility] Potassium [Moles/Vol] 3.8 mmol/L 3.5-5.1 [facility] Protein [Mass/Vol] 5.6 g/dL 6.4-8.2 [facility] Sodium [Moles/Vol] 141 mmol/L 136-145 [facility] Urea nitrogen [Mass/Vol] 18.0 mg/dL 7.0-18.0 [facility] Urea nitrogen/Creatinine [Mass ratio] 16.7 mg/mg [facility] Laboratory - Hematology and Cell countson 02-20-2024 Immature granulocytes/100 WBC (Bld) 0.2 % 0.0-0.5 [facility] Leukocytes [#/volume] correc miguel for nucleated erythrocytes in Blood by Automated counon 02-20-2024 WBC corrected for nucl RBC Auto (Bld) [#/Vol] 4.7 10 3/uL 4.0-11.0 [facility] Lymphocytes Auto (Bld) [#/Vo l]on 02-20-2024 Lymphocytes (Bld) [#/Vol] 1.0 10 3/uL 1.2-3.8 [facility] Lymphocytes/100 WBC Auto (Bl d)on 02-20-2024 Lymphocytes/100 WBC (Bld) 21.8 % 20.5-60.0 [facility] MCH Auto (RBC) [Entitic mass ]on 02-20-2024 MCH (RBC) [Entitic mass] 29.2 pg 26.7-34.0 [facility] MCHC Auto (RBC) [Mass/Vol]on 02-20-2024 MCHC (RBC) [Mass/Vol] 32.5 g/dL 29.9-35.2 [facility] MCV Auto (RBC) [Entitic vol] on 02-20-2024 MCV (RBC) [Entitic vol] 89.8 fL 81.0-99.0 [facility] Monocytes Auto (Bld) [#/Vol] on 02-20-2024 Monocytes (Bld) [#/Vol] 0.7 10 3/uL 0.3-0.8 [facility] Monocytes/100 WBC Auto (Bld) on 02-20-2024 Monocytes/100 WBC (Bld) 14.2 % 1.7-12.0 [facility] Neutrophils Auto (Bld) [#/Vo l]on 02-20-2024 Neutrophils (Bld) [#/Vol] 2.8 10 3/uL 1.4-6.5 [facility] Neutrophils/100 WBC Auto (Bl d)on 02-20-2024 Neutrophils/100 WBC (Bld) 60.2 % 43.0-75.0 [facility] No Panel Informationon 02-19 Eosinophils # (Auto) 0.1 10 3/uL 0.0-0.7 [facility] Immature Granulocyte # (Auto) 0.01 10 3/uL 0.00-0.03 [facility] Platelet mean volume Auto (B ld) [Entitic vol]on 02-20-2024 Platelet mean volume (Bld) [Entitic vol] 10.5 fL 9.5-13.5 [facility] Platelets Auto (Bld) [#/Vol] on 02-20-2024 Platelets (Bld) [#/Vol] 250 10 3/uL 150-450 [facility] RBC Auto (Bld) [#/Vol]on RBC (Bld) [#/Vol] 3.25 10 6/uL 4.20-5.40 [facility] Serum or plasma albumin/glob ulin mass ratioon 02-20-2024 Albumin/Globulin [Mass ratio] 1.1 {ratio} [facility] Serum or plasma anion gap de terminationon 02-20-2024 Anion gap [Moles/Vol] 9.9 mmol/L [facility] Basophils Auto (Bld) [#/Vol] on 02-19-2024 Basophils (Bld) [#/Vol] 0.0 10 3/uL 0.0-0.1 [facility] Basophils/100 WBC Auto (Bld) on 02-19-2024 Basophils/100 WBC (Bld) 0.8 % 0.2-2.0 [facility] Cholesterol in LDL Calc [Mas s/Vol]on 02-19-2024 Cholesterol in LDL [Mass/Vol] 100.4 mg/dL [facility] Comment on above: <100 mg/dl [id number] 0-129 mg/dl NEAR OR ABOVE [id number] mg/dl BORDERLINE [id number] mg/dl HIGH>190 mg/dl VERY HIGH Cholesterol in VLDL Calc [Ma ss/Vol]on 02-19-2024 Cholesterol in VLDL [Mass/Vol] 15.6 mg/dL [facility] Eosinophils/100 WBC Auto (Bl d)on 02-19-2024 Eosinophils/100 WBC (Bld) 1.9 % 0.9-7.0 [facility] Erythrocyte distribution wid th Auto (RBC) [Ratio]on 02-19-2024 Erythrocyte distribution width (RBC) [Ratio] 13.2 % 11.0-15.0 [facility] Estimated glomerular filtrat ion rate (GFR) non- Americanon 02-19-2024 GFR/1.73 sq M.predicted among non-blacks MDRD (S/P/Bld) [Vol rate/Area] 44 mL/min/{1.73_m2} >=60 [facility] Globulin Calc (S) [Mass/Vol] on 02-19-2024 Globulin (S) [Mass/Vol] 2.8 g/dL [facility] Hematocrit Auto (Bld) [Volum e fraction]on 02-19-2024 Hematocrit (Bld) [Volume fraction] 31.2 % 36.0-48.0 [facility] Hemoglobin [Mass/volume] in Bloodon 02-19-2024 Hemoglobin (Bld) [Mass/Vol] 10.0 g/dL 12.0-16.0 [facility] Laboratory - Chemistry and C hemistry - challengeon 02-19-2024 Albumin [Mass/Vol] 3.2 g/dL 3.4-5.0 [facility] ALP [Catalytic activity/Vol] 49 U/L 46-116 [facility] ALT [Catalytic activity/Vol] 15 U/L 14-59 [facility] AST [Catalytic activity/Vol] 15 U/L 15-37 [facility] Bilirubin [Mass/Vol] 0.5 mg/dL 0.2-1.0 [facility] Calcium [Mass/Vol] 9.4 mg/dL 8.5-10.1 [facility] Chloride [Moles/Vol] 108 mmol/L 98-107 [facility] Cholesterol [Mass/Vol] 158 mg/dL <=200 [facility] Cholesterol in HDL [Mass/Vol] 42 mg/dL 40-60 [facility] Comment on above: > or =60 mg/dl - LOW CARDIOVASCULAR RISK<40 mg/dl - HIGH CARDIOVASCULAR RISK CO2 [Moles/Vol] 28.7 mmol/L 21.0-32.0 [facility] Creatinine [Mass/Vol] 1.18 mg/dL 0.55-1.02 [facility] GFR/1.73 sq M.predicted MDRD (S/P/Bld) [Vol rate/Area] 53 mL/min/{1.73_m2} >=60 [facility] Glucose [Mass/Vol] 93 mg/dL 74-106 [facility] Potassium [Moles/Vol] 4.0 mmol/L 3.5-5.1 [facility] Protein [Mass/Vol] 6.0 g/dL 6.4-8.2 [facility] Sodium [Moles/Vol] 145 mmol/L 136-145 [facility] Triglyceride [Mass/Vol] 78 mg/dL <=150 [facility] TSH Qn 4.696 m[IU]/L 0.358-3.740 [facility] Urea nitrogen [Mass/Vol] 20.0 mg/dL 7.0-18.0 [facility] Urea nitrogen/Creatinine [Mass ratio] 16.9 mg/mg [facility] Laboratory - Hematology and Cell countson 02-19-2024 Immature granulocytes/100 WBC (Bld) 0.6 % 0.0-0.5 [facility] Leukocytes [#/volume] correc miguel for nucleated erythrocytes in Blood by Automated counon 02-19-2024 WBC corrected for nucl RBC Auto (Bld) [#/Vol] 5.3 10 3/uL 4.0-11.0 [facility] Lymphocytes Auto (Bld) [#/Vo l]on 02-19-2024 Lymphocytes (Bld) [#/Vol] 1.1 10 3/uL 1.2-3.8 [facility] Lymphocytes/100 WBC Auto (Bl d)on 02-19-2024 Lymphocytes/100 WBC (Bld) 21.3 % 20.5-60.0 [facility] MCH Auto (RBC) [Entitic mass ]on 02-19-2024 MCH (RBC) [Entitic mass] 29.6 pg 26.7-34.0 [facility] MCHC Auto (RBC) [Mass/Vol]on 02-19-2024 MCHC (RBC) [Mass/Vol] 32.1 g/dL 29.9-35.2 [facility] MCV Auto (RBC) [Entitic vol] on 02-19-2024 MCV (RBC) [Entitic vol] 92.3 fL 81.0-99.0 [facility] Monocytes Auto (Bld) [#/Vol] on 02-19-2024 Monocytes (Bld) [#/Vol] 0.6 10 3/uL 0.3-0.8 [facility] Monocytes/100 WBC Auto (Bld) on 02-19-2024 Monocytes/100 WBC (Bld) 11.1 % 1.7-12.0 [facility] Neutrophils Auto (Bld) [#/Vo l]on 02-19-2024 Neutrophils (Bld) [#/Vol] 3.4 10 3/uL 1.4-6.5 [facility] Neutrophils/100 WBC Auto (Bl d)on 02-19-2024 Neutrophils/100 WBC (Bld) 64.3 % 43.0-75.0 [facility] No Panel Informationon 02-18 Eosinophils # (Auto) 0.1 10 3/uL 0.0-0.7 [facility] Immature Granulocyte # (Auto) 0.03 10 3/uL 0.00-0.03 [facility] Platelet mean volume Auto (B ld) [Entitic vol]on 02-19-2024 Platelet mean volume (Bld) [Entitic vol] 10.4 fL 9.5-13.5 [facility] Platelets Auto (Bld) [#/Vol] on 02-19-2024 Platelets (Bld) [#/Vol] 262 10 3/uL 150-450 [facility] RBC Auto (Bld) [#/Vol]on RBC (Bld) [#/Vol] 3.38 10 6/uL 4.20-5.40 [facility] Serum or plasma albumin/glob ulin mass ratioon 02-19-2024 Albumin/Globulin [Mass ratio] 1.1 {ratio} [facility] Serum or plasma anion gap de terminationon 02-19-2024 Anion gap [Moles/Vol] 12[facility]3 [facility] or plasma total choles terol/high density lipoprotein (HDL) cholesterol mass anastasia 02-19-2024 Cholesterol.total/Cho lesterol in HDL [Mass ratio] 3.8 {ratio} [facility] Comment on above: 3.3 - 4.4 LOW RISK4. 4 - 7.1 AVERAGE RISK7.1 - 11.0 MODERATE RISK>11.0 HIGH RISK Basophils Auto (Bld) [#/Vol] on 02-18-2024 Basophils (Bld) [#/Vol] 0.0 10 3/uL 0.0-0.1 [facility] Basophils/100 WBC Auto (Bld) on 02-18-2024 Basophils/100 WBC (Bld) 0.4 % 0.2-2.0 [facility] Eosinophils/100 WBC Auto (Bl d)on 02-18-2024 Eosinophils/100 WBC (Bld) 1.2 % 0.9-7.0 [facility] Erythrocyte distribution wid th Auto (RBC) [Ratio]on 02-18-2024 Erythrocyte distribution width (RBC) [Ratio] 13.2 % 11.0-15.0 [facility] Estimated glomerular filtrat ion rate (GFR) non- Americanon 02-18-2024 GFR/1.73 sq M.predicted among non-blacks MDRD (S/P/Bld) [Vol rate/Area] 34 mL/min/{1.73_m2} >=60 [facility] Hematocrit Auto (Bld) [Volum e fraction]on 02-18-2024 Hematocrit (Bld) [Volume fraction] 31.7 % 36.0-48.0 [facility] Hemoglobin [Mass/volume] in Bloodon 02-18-2024 Hemoglobin (Bld) [Mass/Vol] 10.3 g/dL 12.0-16.0 [facility] Laboratory - Chemistry and C hemistry - challengeon 02-18-2024 Magnesium [Mass/Vol] 2.3 mg/dL 1.8-2.4 [facility] [facility] Natriuretic peptide B (Bld) [Mass/Vol] 800.0 pg/mL <=1800.0 [facility] Calcium [Mass/Vol] 9.0 mg/dL 8.5-10.1 [facility] Chloride [Moles/Vol] 106 mmol/L 98-107 [facility] CO2 [Moles/Vol] 30.4 mmol/L 21.0-32.0 [facility] Creatinine [Mass/Vol] 1.46 mg/dL 0.55-1.02 [facility] GFR/1.73 sq M.predicted MDRD (S/P/Bld) [Vol rate/Area] 42 mL/min/{1.73_m2} >=60 [facility] Glucose [Mass/Vol] 102 mg/dL 74-106 [facility] Potassium [Moles/Vol] 4.1 mmol/L 3.5-5.1 [facility] Sodium [Moles/Vol] 144 mmol/L 136-145 [facility] Urea nitrogen [Mass/Vol] 21.0 mg/dL 7.0-18.0 [facility] Urea nitrogen/Creatinine [Mass ratio] 14.4 mg/mg [facility] Laboratory - Hematology and Cell countson 02-18-2024 Immature granulocytes/100 WBC (Bld) 0.7 % 0.0-0.5 [facility] Leukocytes [#/volume] correc miguel for nucleated erythrocytes in Blood by Automated counon 02-18-2024 WBC corrected for nucl RBC Auto (Bld) [#/Vol] 6.8 10 3/uL 4.0-11.0 [facility] Lymphocytes Auto (Bld) [#/Vo l]on 02-18-2024 Lymphocytes (Bld) [#/Vol] 0.8 10 3/uL 1.2-3.8 [facility] Lymphocytes/100 WBC Auto (Bl d)on 02-18-2024 Lymphocytes/100 WBC (Bld) 11.2 % 20.5-60.0 [facility] MCH Auto (RBC) [Entitic mass ]on 02-18-2024 MCH (RBC) [Entitic mass] 29.3 pg 26.7-34.0 [facility] MCHC Auto (RBC) [Mass/Vol]on 02-18-2024 MCHC (RBC) [Mass/Vol] 32.5 g/dL 29.9-35.2 [facility] MCV Auto (RBC) [Entitic vol] on 02-18-2024 MCV (RBC) [Entitic vol] 90.1 fL 81.0-99.0 [facility] Monocytes Auto (Bld) [#/Vol] on 02-18-2024 Monocytes (Bld) [#/Vol] 0.6 10 3/uL 0.3-0.8 [facility] Monocytes/100 WBC Auto (Bld) on 02-18-2024 Monocytes/100 WBC (Bld) 9.5 % 1.7-12.0 [facility] Neutrophils Auto (Bld) [#/Vo l]on 02-18-2024 Neutrophils (Bld) [#/Vol] 5.2 10 3/uL 1.4-6.5 [facility] Neutrophils/100 WBC Auto (Bl d)on 02-18-2024 Neutrophils/100 WBC (Bld) 77.0 % 43.0-75.0 [facility] No Panel Informationon 02-17 Troponin I High Sensitivity 11.1 pg/mL 4.0-51.3 [facility] Comment on above: CUT-OFF POINTS HAVE BEEN [...] Eosinophils # (Auto) 0.1 10 3/uL 0.0-0.7 [facility] Immature Granulocyte # (Auto) 0.05 10 3/uL 0.00-0.03 [facility] Platelet mean volume Auto (B ld) [Entitic vol]on 02-18-2024 Platelet mean volume (Bld) [Entitic vol] 10.1 fL 9.5-13.5 [facility] Platelets Auto (Bld) [#/Vol] on 02-18-2024 Platelets (Bld) [#/Vol] 255 10 3/uL 150-450 [facility] RBC Auto (Bld) [#/Vol]on RBC (Bld) [#/Vol] 3.52 10 6/uL 4.20-5.40 [facility] Serum or plasma anion gap de terminationon 02-18-2024 Anion gap [Moles/Vol] 11.7 mmol/L [facility] Basophils Auto (Bld) [#/Vol] on 02-02-2024 Basophils (Bld) [#/Vol] 0.1 10 3/uL 0.0-0.1 [facility] Basophils/100 WBC Auto (Bld) on 02-02-2024 Basophils/100 WBC (Bld) 1.1 % 0.2-2.0 [facility] Cholesterol in LDL Calc [Mas s/Vol]on 02-02-2024 Cholesterol in LDL [Mass/Vol] 113.6 mg/dL [facility] Comment on above: <100 mg/dl [id number] 0-129 mg/dl NEAR OR ABOVE [id number] mg/dl BORDERLINE [id number] mg/dl HIGH>190 mg/dl VERY HIGH Cholesterol in VLDL Calc [Ma ss/Vol]on 02-02-2024 Cholesterol in VLDL [Mass/Vol] 10.4 mg/dL [facility] Eosinophils/100 WBC Auto (Bl d)on 02-02-2024 Eosinophils/100 WBC (Bld) 2.3 % 0.9-7.0 [facility] Erythrocyte distribution wid th Auto (RBC) [Ratio]on 02-02-2024 Erythrocyte distribution width (RBC) [Ratio] 13.1 % 11.0-15.0 [facility] Estimated glomerular filtrat ion rate (GFR) non- Americanon 02-02-2024 GFR/1.73 sq M.predicted among non-blacks MDRD (S/P/Bld) [Vol rate/Area] 34 mL/min/{1.73_m2} >=60 [facility] Globulin Calc (S) [Mass/Vol] on 02-02-2024 Globulin (S) [Mass/Vol] 3.0 g/dL [facility] Hematocrit Auto (Bld) [Volum e fraction]on 02-02-2024 Hematocrit (Bld) [Volume fraction] 34.7 % 36.0-48.0 [facility] Hemoglobin [Mass/volume] in Bloodon 02-02-2024 Hemoglobin (Bld) [Mass/Vol] 10.9 g/dL 12.0-16.0 [facility] Laboratory - Chemistry and C hemistry - challengeon 02-02-2024 Albumin [Mass/Vol] 3.4 g/dL 3.4-5.0 [facility] ALP [Catalytic activity/Vol] 52 U/L 46-116 [facility] ALT [Catalytic activity/Vol] 13 U/L 14-59 [facility] AST [Catalytic activity/Vol] 14 U/L 15-37 [facility] Bilirubin [Mass/Vol] 0.3 mg/dL 0.2-1.0 [facility] Calcium [Mass/Vol] 9.3 mg/dL 8.5-10.1 [facility] Chloride [Moles/Vol] 109 mmol/L 98-107 [facility] Cholesterol [Mass/Vol] 169 mg/dL <=200 [facility] Cholesterol in HDL [Mass/Vol] 45 mg/dL 40-60 [facility] Comment on above: > or =60 mg/dl - LOW CARDIOVASCULAR RISK<40 mg/dl - HIGH CARDIOVASCULAR RISK CO2 [Moles/Vol] 29.8 mmol/L 21.0-32.0 [facility] Creatinine [Mass/Vol] 1.47 mg/dL 0.55-1.02 [facility] GFR/1.73 sq M.predicted MDRD (S/P/Bld) [Vol rate/Area] 41 mL/min/{1.73_m2} >=60 [facility] Glucose [Mass/Vol] 104 mg/dL 74-106 [facility] Potassium [Moles/Vol] 4.9 mmol/L 3.5-5.1 [facility] Protein [Mass/Vol] 6.4 g/dL 6.4-8.2 [facility] Sodium [Moles/Vol] 147 mmol/L 136-145 [facility] Triglyceride [Mass/Vol] 52 mg/dL <=150 [facility] TSH Qn 3.613 m[IU]/L 0.358-3.740 [facility] Urea nitrogen [Mass/Vol] 24.0 mg/dL 7.0-18.0 [facility] Urea nitrogen/Creatinine [Mass ratio] 16.3 mg/mg [facility] Laboratory - Hematology and Cell countson 02-02-2024 Immature granulocytes/100 WBC (Bld) 0.4 % 0.0-0.5 [facility] Leukocytes [#/volume] correc miguel for nucleated erythrocytes in Blood by Automated counon 02-02-2024 WBC corrected for nucl RBC Auto (Bld) [#/Vol] 5.6 10 3/uL 4.0-11.0 [facility] Lymphocytes Auto (Bld) [#/Vo l]on 02-02-2024 Lymphocytes (Bld) [#/Vol] 1.1 10 3/uL 1.2-3.8 [facility] Lymphocytes/100 WBC Auto (Bl d)on 02-02-2024 Lymphocytes/100 WBC (Bld) 20.2 % 20.5-60.0 [facility] MCH Auto (RBC) [Entitic mass ]on 02-02-2024 MCH (RBC) [Entitic mass] 29.8 pg 26.7-34.0 [facility] MCHC Auto (RBC) [Mass/Vol]on 02-02-2024 MCHC (RBC) [Mass/Vol] 31.4 g/dL 29.9-35.2 [facility] MCV Auto (RBC) [Entitic vol] on 02-02-2024 MCV (RBC) [Entitic vol] 94.8 fL 81.0-99.0 [facility] Monocytes Auto (Bld) [#/Vol] on 02-02-2024 Monocytes (Bld) [#/Vol] 0.7 10 3/uL 0.3-0.8 [facility] Monocytes/100 WBC Auto (Bld) on 02-02-2024 Monocytes/100 WBC (Bld) 11.7 % 1.7-12.0 [facility] Neutrophils Auto (Bld) [#/Vo l]on 02-02-2024 Neutrophils (Bld) [#/Vol] 3.6 10 3/uL 1.4-6.5 [facility] Neutrophils/100 WBC Auto (Bl d)on 02-02-2024 Neutrophils/100 WBC (Bld) 64.3 % 43.0-75.0 [facility] No Panel Informationon 02-01 Eosinophils # (Auto) 0.1 10 3/uL 0.0-0.7 [facility] Immature Granulocyte # (Auto) 0.02 10 3/uL 0.00-0.03 [facility] Platelet mean volume Auto (B ld) [Entitic vol]on 02-02-2024 Platelet mean volume (Bld) [Entitic vol] 10.6 fL 9.5-13.5 [facility] Platelets Auto (Bld) [#/Vol] on 02-02-2024 Platelets (Bld) [#/Vol] 253 10 3/uL 150-450 [facility] RBC Auto (Bld) [#/Vol]on RBC (Bld) [#/Vol] 3.66 10 6/uL 4.20-5.40 [facility] Serum or plasma albumin/glob ulin mass ratioon 02-02-2024 Albumin/Globulin [Mass ratio] 1.1 {ratio} [facility] Serum or plasma anion gap de terminationon 02-02-2024 Anion gap [Moles/Vol] 13.1 mmol/L [facility] Serum or plasma total choles terol/high density lipoprotein (HDL) cholesterol mass anastasia 02-02-2024 Cholesterol.total/Cho lesterol in HDL [Mass ratio] 3.8 {ratio} [facility] Comment on above: 3.3 - 4.4 LOW RISK4. 4 - 7.1 AVERAGE RISK7.1 - 11.0 MODERATE RISK>11.0 HIGH RISK Basic metabolic 2000 panelon 11-05-2023 Anion gap [Moles/Vol] 9 mmol/L Normal 9-18 [facility] Comment on above: Order Comment: Speci men Type: BLOOD SPECIMEN Ordering Facility: [facility] Address: [address] [address] Performed By: #### 5 7021-8 #### [facility] CLIA [id number] [address] [place] [address] Calcium [Mass/Vol] 9.6 mg/dL Normal 8.5-10.2 [facility] Comment on above: Order Comment: Speci men Type: BLOOD SPECIMEN Ordering Facility: [facility] Address: [address] [address] Performed By: #### 5 7021-8 #### [facility] CLIA [id number] [address] [place] [address] Chloride [Moles/Vol] 103 mmol/L Normal 97-105 [facility] Comment on above: Order Comment: Speci men Type: BLOOD SPECIMEN Ordering Facility: [facility] Address: [address] [address] Performed By: #### 5 7021-8 #### [facility] CLIA [id number] [address] [place] [address] CO2 [Moles/Vol] 29 mmol/L Normal 22-30 [facility] Comment on above: Order Comment: Speci men Type: BLOOD SPECIMEN Ordering Facility: [facility] Address: [address] [address] Performed By: #### 5 7021-8 #### [facility] CLIA [id number] [address] [place] [address] Creatinine [Mass/Vol] 1.48 mg/dL High 0.58-0.96 [facility] Comment on above: Order Comment: Speci men Type: BLOOD SPECIMEN Ordering Facility: [facility] Address: [address] [address] Performed By: #### 5 7021-8 #### [facility] CLIA [id number] [address] [place] [address] Creatinine and Glomerular filtration rate.predicted panel (S/P/Bld) 35 mL/min/1.73m??? Low >=60 [facility] Comment on above: Order Comment: Speci men Type: BLOOD SPECIMEN Ordering Facility: [facility] Address: [address] [address] Result Comment: Shoshana mated Glomerular Filtration Rate [...] GFR. Performed By: #### 5 7021-8 #### [facility] CLIA [id number] [address] [place] [address] Glucose [Mass/Vol] 138 mg/dL High 74-99 [facility] Comment on above: Order Comment: Speci men Type: BLOOD SPECIMEN Ordering Facility: [facility] Address: [address] [address] Result Comment: The [place] [employer] (ADA) provides guidance for cutoff [...] Standards of Medical Care in Diabetes 2016, [place] [employer]. Diabetes Care. 2016.39(Suppl 1). Performed By: #### 5 7021-8 #### [facility] CLIA [id number] [address] [place] [address] Potassium [Moles/Vol] 5.0 mmol/L Normal 3.7-5.1 [facility] Comment on above: Order Comment: Speci men Type: BLOOD SPECIMEN Ordering Facility: [facility] Address: [address] [address] Performed By: #### 5 7021-8 #### [facility] CLIA [id number] [address] [place] [address] Sodium [Moles/Vol] 141 mmol/L Normal 136-144 [facility] Comment on above: Order Comment: Preet patino Type: BLOOD SPECIMEN Ordering Facility: [facility] Address: [address] [address] Performed By: #### 5 7021-8 #### [facility] CLIA [id number] [address] [place] [address] Urea nitrogen [Mass/Vol] 25 mg/dL High 7-21 [facility] Comment on above: Order Comment: Preet patino Type: BLOOD SPECIMEN Ordering Facility: [facility] Address: [address] [address] Performed By: #### 5 7021-8 #### [facility] CLIA [id number] [address] [place] [address] CBC W Auto Differential pane l (Bld)on 11-05-2023 Basophils (Bld) [#/Vol] 0.06 10*3/uL Normal <0.11 [facility] Comment on above: Order Comment: Speci men Type: BLOOD SPECIMEN Ordering Facility: [facility] Address: [address] [place] [address] Performed By: #### K LFRS #### [facility] CLIA [id number] [address] [place] [address] [place] Basophils/100 WBC (Bld) 0.9 % Normal [facility] Comment on above: Order Comment: Speci men Type: BLOOD SPECIMEN Ordering Facility: [facility] Address: [address] [place] [address] Performed By: #### K LFRS #### [facility] CLIA [id number] [address] [place] [address] [place] Differential cell count method Nom (Bld) Auto Normal [facility] Comment on above: Order Comment: Speci men Type: BLOOD SPECIMEN Ordering Facility: [facility] Address: [address] [place] [address] Performed By: #### K LFRS #### [facility] CLIA [id number] [address] [place] [address] [place] Eosinophils (Bld) [#/Vol] 0.10 10*3/uL Normal <0.46 [facility] Comment on above: Order Comment: Speci men Type: BLOOD SPECIMEN Ordering Facility: [facility] Address: [address] [place] [address] Performed By: #### K LFRS #### [facility] CLIA [id number] [address] [place] [address] [place] Eosinophils/100 WBC (Bld) 1.4 % Normal [facility] Comment on above: Order Comment: Speci men Type: BLOOD SPECIMEN Ordering Facility: [facility] Address: [address] [place] [address] Performed By: #### K LFRS #### [facility] CLIA [id number] [address] [place] [address] [place] Erythrocyte distribution width (RBC) [Ratio] 14.1 % Normal 11.5-15.0 [facility] Comment on above: Order Comment: Speci men Type: BLOOD SPECIMEN Ordering Facility: [facility] Address: [address] [place] [address] Performed By: #### K LFRS #### [facility] CLIA [id number] [address] [place] [address] [place] Hematocrit (Bld) [Volume fraction] 31.7 % Low 36.0-46.0 [facility] Comment on above: Order Comment: Speci men Type: BLOOD SPECIMEN Ordering Facility: [facility] Address: [address] [place] [address] Performed By: #### K LFRS #### [facility] CLIA [id number] [address] [place] [address] [place] Hemoglobin (Bld) [Mass/Vol] 10.4 g/dL Low 11.5-15.5 [facility] Comment on above: Order Comment: Speci men Type: BLOOD SPECIMEN Ordering Facility: [facility] Address: [address] [place] [address] Performed By: #### K LFRS #### [facility] CLIA [id number] [address] [place] [address] [place] Immature granulocytes (Bld) [#/Vol] 0.04 10*3/uL Normal <0.10 [facility] Comment on above: Order Comment: Speci men Type: BLOOD SPECIMEN Ordering Facility: [facility] Address: [address] [place] [address] Performed By: #### K LFRS #### [facility] CLIA [id number] [address] [place] [address] [place] Immature granulocytes/100 WBC (Bld) 0.6 % Normal [facility] Comment on above: Order Comment: Speci men Type: BLOOD SPECIMEN Ordering Facility: [facility] Address: [address] [place] [address] Performed By: #### K LFRS #### [facility] CLIA [id number] [address] [place] [address] [place] Lymphocytes (Bld) [#/Vol] 0.89 10*3/uL Low 1.00-4.00 [facility] Comment on above: Order Comment: Speci men Type: BLOOD SPECIMEN Ordering Facility: [facility] Address: [address] [place] [address] Performed By: #### K LFRS #### [facility] CLIA [id number] [address] [place] [address] [place] Lymphocytes/100 WBC (Bld) 12.8 % Normal [facility] Comment on above: Order Comment: Speci men Type: BLOOD SPECIMEN Ordering Facility: [facility] Address: [address] [place] [address] Performed By: #### K LFRS #### [facility] CLIA [id number] [address] [place] [address] [place] MCH (RBC) [Entitic mass] 29.3 pg Normal 26.0-34.0 [facility] Comment on above: Order Comment: Speci men Type: BLOOD SPECIMEN Ordering Facility: [facility] Address: [address] [place] [address] Performed By: #### K LFRS #### [facility] CLIA [id number] [address] [place] [address] [place] MCHC (RBC) [Mass/Vol] 32.8 g/dL Normal 30.5-36.0 [facility] Comment on above: Order Comment: Speci men Type: BLOOD SPECIMEN Ordering Facility: [facility] Address: [address] [place] [address] Performed By: #### K LFRS #### [facility] CLIA [id number] [address] [place] [address] [place] MCV (RBC) [Entitic vol] 89.3 fL Normal 80.0-100.0 [facility] Comment on above: Order Comment: Speci men Type: BLOOD SPECIMEN Ordering Facility: [facility] Address: [address] [place] [address] Performed By: #### K LFRS #### [facility] CLIA [id number] [address] [place] [address] [place] Monocytes (Bld) [#/Vol] 0.69 10*3/uL Normal <0.87 [facility] Comment on above: Order Comment: Speci men Type: BLOOD SPECIMEN Ordering Facility: [facility] Address: [address] [place] [address] Performed By: #### K LFRS #### [facility] CLIA [id number] [address] [place] [address] [place] Monocytes/100 WBC (Bld) 9.9 % Normal [facility] Comment on above: Order Comment: Speci men Type: BLOOD SPECIMEN Ordering Facility: [facility] Address: [address] [place] [address] Performed By: #### K LFRS #### [facility] CLIA [id number] [address] [place] [address] [place] Neutrophils (Bld) [#/Vol] 5.16 10*3/uL Normal 1.45-7.50 [facility] Comment on above: Order Comment: Speci men Type: BLOOD SPECIMEN Ordering Facility: [facility] Address: [address] [place] [address] Performed By: #### K LFRS #### [facility] CLIA [id number] [address] [place] [address] [place] Neutrophils/100 WBC (Bld) 74.4 % Normal [facility] Comment on above: Order Comment: Speci men Type: BLOOD SPECIMEN Ordering Facility: [facility] Address: [address] [place] [address] Performed By: #### K LFRS #### [facility] CLIA [id number] [address] [place] [address] [place] Nucleated RBC (Bld) [#/Vol] 10*3/uL Normal <0.01 [facility] Comment on above: Order Comment: Speci men Type: BLOOD SPECIMEN Ordering Facility: [facility] Address: [address] [place] [address] Performed By: #### K LFRS #### [facility] CLIA [id number] [address] [place] [address] [place] Nucleated RBC/100 WBC (Bld) [Ratio] 0.0 /100 WBC Normal [facility] Comment on above: Order Comment: Speci men Type: BLOOD SPECIMEN Ordering Facility: [facility] Address: [address] [place] [address] Performed By: #### K LFRS #### [facility] CLIA [id number] [address] [place] [address] [place] Platelet mean volume (Bld) [Entitic vol] 9.9 fL Normal 9.0-12.7 [facility] Comment on above: Order Comment: Speci men Type: BLOOD SPECIMEN Ordering Facility: [facility] Address: [address] [place] [address] Performed By: #### K LFRS #### [facility] CLIA [id number] [address] [place] [address] [place] Platelets (Bld) [#/Vol] 262 10*3/uL Normal 150-400 [facility] Comment on above: Order Comment: Speci men Type: BLOOD SPECIMEN Ordering Facility: [facility] Address: [address] [place] [address] Performed By: #### K LFRS #### [facility] CLIA [id number] [address] [place] [address] [place] RBC (Bld) [#/Vol] 3.55 10*6/uL Low 3.90-5.20 [facility] Comment on above: Order Comment: Speci men Type: BLOOD SPECIMEN Ordering Facility: [facility] Address: [address] [place] [address] Performed By: #### K LFRS #### [facility] CLIA [id number] [address] [place] [address] [place] WBC (Bld) [#/Vol] 6.94 10*3/uL Normal 3.70-11.00 [facility] Comment on above: Order Comment: Speci men Type: BLOOD SPECIMEN Ordering Facility: [facility] Address: [address] [place] [address] Performed By: #### K LFRS #### [facility] CLIA [id number] [address] [place] [address] OF [facility] CNOVSPon 11-05-2023 CNOVSP Visit (SP) Office ([place]) ----- LASHAUN JOAQUIN ([id number]) 1940 F Date Time Provider Department 11/05/23 1:30 PM PAOLO CASILLAS During your visit today, we recorded the following information about you: Temperature Pulse Respiration Blood pressure 97.5 degrees 57/minute 16/minute 111/40 Weight Height 87.6 kg 1.664 m Paolo Casillas APRN.VAULT PERSON 11/07/2023 12:22 PM Signed PATIENT NAME: Lashaun [...] 166.4 c (more content not included)... Normal [facility] IMMUNOFIXATION SCREEN, SERUM on 11-05-2023 INTERPRETATION (MPA) Poorly defined rbenda on of restricted mobility in IgM and [...] monoclonal gammopathy. Clinical correlation is necessary. Normal [facility] Comment on above: Order Comment: Speci men Type: BLOOD SPECIMEN Ordering Facility: [facility] Address: [address] [address] Performed By: #### 5 7021-8 #### [facility] CLIA [id number] [address] [place] [address] MPA RESULT A poorly defined reg ion of restricted mobility is present that may represent an M protein. Abnormal No M protein is identified. [facility] Comment on above: Order Comment: Speci men Type: BLOOD SPECIMEN Ordering Facility: [facility] Address: [address] [address] Performed By: #### 5 7021-8 #### [facility] CLIA [id number] [address] [place], [place] [id number] STAFF REVIEW (MPA) Reviewed by Milka Bahena MD [facility] Comment on above: Order Comment: Speci men Type: BLOOD SPECIMEN Ordering Facility: [facility] Address: [address] [place] [address] Performed By: #### 5 7021-8 #### [facility] CLIA [id number] [address] [place] [address] IMMUNOGLOBULINS GAMon 2023 IgA [Mass/Vol] 72 mg/dL Normal 70-400 [facility] Comment on above: Order Comment: Speci men Type: BLOOD SPECIMEN Ordering Facility: [facility] Address: [address] [address] Performed By: #### 5 7021-8 #### [facility] CLIA [id number] [address] [place] [address] IgG [Mass/Vol] 525 mg/dL Low 700-1600 [facility] Comment on above: Order Comment: Speci men Type: BLOOD SPECIMEN Ordering Facility: [facility] Address: [address] [address] Performed By: #### 5 7021-8 #### [facility] CLIA [id number] [address] [place] [address] 45718 IgM [Mass/Vol] 340 mg/dL High 40-230 [facility] Comment on above: Order Comment: Speci men Type: BLOOD SPECIMEN Ordering Facility: [facility] Address: [address] [id number] Performed By: #### 5 7021-8 #### [facility] CLIA [id number] [address] [place] [address] 56883 KAPPA/BOWLES,FREE,SERon 2023 Immunoglobulin light chains.kappa.free (S) [Mass/Vol] 106.4 mg/L High 3.3-19.4 [facility] Comment on above: Order Comment: Speci men Type: BLOOD SPECIMEN Ordering Facility: [facility] Address: [address] [place] [address] Result Comment: Rare ly, increased serum free light chains levels may not be detected or accurately quantified due to prozone phenomenon or in high viscosity samples using this immunoturbidimetric assay. Correlation with other laboratory results and clinical findings is recommended. The [place] Free Light Chain was performed using the Binding Site Optilite immunoturbidimetric method. Result obtained with different assay methods or kits cannot be used interchangeably. Performed By: #### K LFRS #### [facility] CLIA [id number] [address] [place] [address] [place] Immunoglobulin light chains.kappa/Immunogl obulin light chains.lambda (S) [Mass ratio] 5.29 High 0.26-1.65 [facility] Comment on above: Order Comment: Speci men Type: BLOOD SPECIMEN Ordering Facility: [facility] Address: [address] [place] [address] Performed By: #### K LFRS #### [facility] CLIA [id number] [address] [place] [address] [place] Immunoglobulin light chains.lambda.free [Mass/Vol] 20.1 mg/L Normal 5.7-26.3 [facility] Comment on above: Order Comment: Speci men Type: BLOOD SPECIMEN Ordering Facility: [facility] Address: [address] [place] [address] Result Comment: Rare ly, increased serum free [...] interchangeably. Performed By: #### K LFRS #### [facility] CLIA [id number] [address] [place] [address] [place] PROTEIN ELECTROPHORESIS SERU M WITH BRANDON (P)on 11-05-2023 Albumin [Mass/Vol] 3.79 g/dL Normal 3.43-5.41 [facility] Comment on above: Order Comment: Speci men Type: BLOOD SPECIMEN Ordering Facility: [facility] Address: [address] [place] [address] Performed By: #### L [id number] #### [facility] CLIA [id number] [facility] [place] [address] [place] Alpha 1 globulin Elph [Mass/Vol] 0.28 g/dL Normal 0.18-0.43 [facility] Comment on above: Order Comment: Preet patino Type: BLOOD SPECIMEN Ordering Facility: [facility] Address: [address] [place] [address] Performed By: #### L [id number] #### [facility] CLIA [id number] [address] [place] [address] [place] Alpha 2 globulin Elph [Mass/Vol] 0.72 g/dL Normal 0.42-0.98 [facility] Comment on above: Order Comment: Speci men Type: BLOOD SPECIMEN Ordering Facility: [facility] Address: [address] [place] [address] Performed By: #### L [id number] #### [facility] CLIA [id number] [address] [place] [address] [place] Beta globulin Elph [Mass/Vol] 0.52 g/dL Low 0.61-1.17 [facility] Comment on above: Order Comment: Speci men Type: BLOOD SPECIMEN Ordering Facility: [facility] Address: [address] [place] [address] Performed By: #### L [id number] #### [facility] CLIA [id number] [address] [place] [address] [place] COMMENT (SERUM PROT ELECTRO) A reflex test for Monoclonal Protein analysis (immunofixation) has been ordered. Normal [facility] Comment on above: Order Comment: Speci men Type: BLOOD SPECIMEN Ordering Facility: [facility] Address: [address] [place] [address] Performed By: #### L [id number] #### [facility] CLIA [id number] [address] [place] [address] [place] Gamma globulin Elph [Mass/Vol] 0.49 g/dL Low 0.53-1.51 [facility] Comment on above: Order Comment: Speci men Type: BLOOD SPECIMEN Ordering Facility: [facility] Address: [address] [place] [address] Performed By: #### L [id number] #### [facility] CLIA [id number] [address] [place] [address] [place] INTERPRETATION COMMENT FOR PROTEIN ELECTROPHORESIS Normal [facility] Comment on above: Order Comment: Sarathi men Type: BLOOD SPECIMEN Ordering Facility: [facility] Address: [address] [place] [address] Result Comment: The atypical region is relatively poorly defined and may represent an unusual presentation of polyclonal immunoglobulins, but cannot rule out the presence of a low level M protein. If clinically indicated, monoclonal protein analysis and serum free light chain analysis are suggested to evaluate further for monoclonal gammopathy. Performed By: #### L [id number] #### [facility] CLIA [id number] [address] [place] [address] [place] M-PROTEIN LOCATION Normal [facility] Comment on above: Order Comment: Speci men Type: BLOOD SPECIMEN Ordering Facility: [facility] Address: [address] [place] [address] Result Comment: Not Applicable. Performed By: #### L [id number] #### [facility] CLIA [id number] [address] [place] [address] [place] Protein Fractions [Interp] An atypical region of restricted mobility is identified on protein electrophoresis. Abnormal No definitive M protein is identified on protein electrophor esis. [facility] Comment on above: Order Comment: Speci men Type: BLOOD SPECIMEN Ordering Facility: [facility] Address: [address] [place] [address] Performed By: #### L [id number] #### [facility] CLIA [id number] [address] [place] [address] [place] Protein.monoclonal Elph [Mass/Vol] 0.00 g/dL Normal <=0.00 [facility] Comment on above: Order Comment: Speci men Type: BLOOD SPECIMEN Ordering Facility: [facility] Address: [address] [place] [address] Performed By: #### L [id number] #### [facility] CLIA [id number] [address] [place] [address] [place] SPE STAFF REVIEW Reviewed by Milka Bahena MD [facility] Comment on above: Order Comment: Speci men Type: BLOOD SPECIMEN Ordering Facility: [facility] Address: [address] [place] [address] Performed By: #### L [id number] #### [facility] CLIA [id number] [address] [place] [address] [place] Prot SerPl-mCncon 11-05-2023 Protein [Mass/Vol] 5.8 g/dL Low 6.3-8.0 [facility] Comment on above: Order Comment: Speci men Type: BLOOD SPECIMEN Ordering Facility: [facility] Address: [address] [place] [address] Performed By: #### 5 7021-8 #### [facility] CLIA [id number] [address] [place], [place] [id number] Kyung 08-31-2023 GABO Telephone (HEMTSA) ----- LASHAUN JOAQUIN ([id number]) 1940 F Date Time Provider Department 08/31/23 [...] [R77.8] Order(s):CBC + DIFF [SQCBCDIF] Order #: [id number] FUTURE BASIC METABOLIC PNL [SQBMP] Order #: [id number] FUTURE PROT ELECT SERUM WITH BRANDON AND INTERP [SQSEPGRX] Order #: [id number] FUTURE MONOCLONAL PROTEIN, SERUM (BLOOD) [SQSERMPA] Order #: [id number] FUTURE Prescriptions as of 08/31/2023 - carvedilol [...] Status:Closed by LUIS MCKENZIE on 08/31/23 Normal [facility] UA RANDOM W/MICROSCOPICon Clarity (U) CLEAR CLEAR [employer] Other Color (U) DK YELLOW YELLOW [employer] Other Ketones Ql (U) Negative NEGATIVE mg/dL [employer] Other Leukocyte esterase Test strip Ql (U) Negative NEGATIVE [employer] Other pH (U) 6.5 [pH] 5.0-9.0 [employer] Other UA RANDOM W/MICROSCOPIC 0-2 #/HPF Abnormal NONE SEEN #/HPF [employer] Other UA RANDOM W/MICROSCOPIC 5-10 #/HPF Abnormal 0-2 #/HPF [place] [employer] Other UA RANDOM W/MICROSCOPIC see note [employer] Other UA RANDOM W/MICROSCOPIC 1.010 1.005-1.025 [place] [employer] Other UA RANDOM W/MICROSCOPIC Negative NEGATIVE [place] [employer] Other UA RANDOM W/MICROSCOPIC LARGE Abnormal NEGATIVE [place] [employer] Other UA RANDOM W/MICROSCOPIC Positive Abnormal NEGATIVE [place] [employer] Other UA RANDOM W/MICROSCOPIC 1.0 EU/dL 0.2-1.0 EU/dL [place] [employer] Other UA RANDOM W/MICROSCOPIC TRACE #/HPF Abnormal NONE SEEN #/HPF [place] [employer] Other UA RANDOM W/MICROSCOPIC NONE SEEN NONE SEEN [employer] Other UA RANDOM W/MICROSCOPIC RARE #/LPF NONE/RARE #/LPF [place] [employer] Other UA RANDOM W/MICROSCOPIC None Seen #/HPF None Seen #/HPF [place] [employer] Other UA RANDOM W/MICROSCOPIC NONE SEEN #/LPF NONE SEEN #/LPF [employer] Other Urinalysis - DIPSTICKon 06-29 Appearance (U) clear [employer] Other Bilirubin Ql (U) Negative [employer] Other Color (U) light yellow [employer] Other Glucose Ql (U) Negative [employer] Other Hemoglobin Ql (U) +++ [employer] Other Ketones Ql (U) Negative [employer] Other Leukocyte esterase Test strip Ql (U) Negative [employer] Other Nitrite Ql (U) Negative [employer] Other pH (U) 0.2 [pH] [place] [employer] Other Protein Ql (U) trace [employer] Other Specific gravity (U) [Rel density] 1.005 [facility] [employer] Other Urobilinogen (U) [Mass/Vol] off chart [place] [employer] Other Urinalysis - DIPSTICK Nor [employer] Other CNPNon 06-06-2023 CNPN Telephone (HEMTSA) ----- LASHAUN JOAQUIN ([id number]) 1940 F Date Time Provider Department 06/06/23 [...] Status:Closed by JUAN MANZANARES on 06/06/23 Normal [facility] ESR Westergren method (Bld) [Velocity]on 06-05-2023 ESR (Bld) [Velocity] 119 mm/h High 0 - 20 mm/hr [facility] FERRITIN BLDon 08-08-2023 Ferritin [Mass/Vol] 160.0 ng/mL 14.7 - 205.1 ng/mL [facility] Iron and Iron binding capaci ty panelon 06-05-2023 Iron [Mass/Vol] 45 ug/dL 41 - 186 ug/dL [facility] Iron binding capacity [Mass/Vol] 252 ug/dL 232 - 386 ug/dL [facility] Iron/TIBC [Molar ratio] 17.9 % 15.0 - 57.0 % [facility] Basic metabolic 2000 panelon 06-04-2023 Anion gap [Moles/Vol] 10 mmol/L Normal 9-18 [facility] Comment on above: Order Comment: Speci men Type: BLOOD SPECIMEN Ordering Facility: [facility] Address: [address] [place] [address] Performed By: #### K LFRS #### [facility] CLIA [id number] [address] [place] [address] [place] Calcium [Mass/Vol] 9.2 mg/dL Normal 8.5-10.2 [facility] Comment on above: Order Comment: Speci men Type: BLOOD SPECIMEN Ordering Facility: [facility] Address: [address] [place] [address] Performed By: #### K LFRS #### [facility] CLIA [id number] [address] [place] [address] [place] Chloride [Moles/Vol] 106 mmol/L High 97-105 [facility] Comment on above: Order Comment: Speci men Type: BLOOD SPECIMEN Ordering Facility: [facility] Address: [address] [place] [address] Performed By: #### K LFRS #### [facility] CLIA [id number] [address] [place] [address] [place] CO2 [Moles/Vol] 27 mmol/L Normal 22-30 [facility] Comment on above: Order Comment: Speci men Type: BLOOD SPECIMEN Ordering Facility: [facility] Address: [address] [place] [address] Performed By: #### K LFRS #### [facility] CLIA [id number] [address] [place] [address] [place] Creatinine [Mass/Vol] 1.09 mg/dL High 0.58-0.96 [facility] Comment on above: Order Comment: Speci men Type: BLOOD SPECIMEN Ordering Facility: [facility] Address: [address] [place] [address] Performed By: #### K LFRS #### [facility] CLIA [id number] [address] [place] [address] [place] ESTIMATED GLOMERULAR FILTRATION RATE 51 mL/min/1.73m??? Low >=60 [facility] Comment on above: Order Comment: Sarathi men Type: BLOOD SPECIMEN Ordering Facility: [facility] Address: [address] [place] [address] Result Comment: Shoshana mated Glomerular Filtration Rate [...] GFR. Performed By: #### K LFRS #### [facility] CLIA [id number] [address] [place] [address] [place] Glucose [Mass/Vol] 116 mg/dL High 74-99 [facility] Comment on above: Order Comment: Speci men Type: BLOOD SPECIMEN Ordering Facility: [facility] Address: [address] [place] [address] Result Comment: The [place] [employer] (ADA) provides guidance for cutoff [...] Standards of Medical Care in Diabetes 2016, [place] [employer]. Diabetes Care. 2016.39(Suppl 1). Performed By: #### K LFRS #### [facility] CLIA [id number] [address] [place] [address] [place] Potassium [Moles/Vol] 4.3 mmol/L Normal 3.7-5.1 [facility] Comment on above: Order Comment: Speci men Type: BLOOD SPECIMEN Ordering Facility: [facility] Address: [address] [place] [address] Performed By: #### K LFRS #### [facility] CLIA [id number] [address] [place] [address] [place] Sodium [Moles/Vol] 143 mmol/L Normal 136-144 [facility] Comment on above: Order Comment: Speci men Type: BLOOD SPECIMEN Ordering Facility: [facility] Address: [address] [place] [address] Performed By: #### K LFRS #### [facility] CLIA [id number] [address] [place] [address] [place] Urea nitrogen [Mass/Vol] 19 mg/dL Normal 7-21 [facility] Comment on above: Order Comment: Speci men Type: BLOOD SPECIMEN Ordering Facility: [facility] Address: [address] [place] [address] Performed By: #### K LFRS #### [facility] CLIA [id number] [facility] [place] [address] [place] Anion gap [Moles/Vol] 10 mmol/L 9 - 18 mmol/L [facility] Calcium [Mass/Vol] 9.2 mg/dL 8.5 - 10. 2 mg/dL [facility] Chloride [Moles/Vol] 106 mmol/L High 97 - 10 5 mmol/L [facility] CO2 [Moles/Vol] 27 mmol/L 22 - 30 mmol/L [facility] Creatinine [Mass/Vol] 1.09 mg/dL High 0.58 - 0.96 mg/dL [facility] Estimated Glomerular Filtration Rate 51 mL/min/1.73m Low >=60 mL/min/1.73 m [facility] Glucose [Mass/Vol] 116 mg/dL High 74 - 99 mg/dL [facility] Potassium [Moles/Vol] 4.3 mmol/L 3.7 - 5.1 mmol/L [facility] Sodium [Moles/Vol] 143 mmol/L 136 - 144 mmol/L [facility] Urea nitrogen [Mass/Vol] 19 mg/dL 7 - 21 mg/dL [facility] CBC W Auto Differential pane l (Bld)on 06-04-2023 Basophils (Bld) [#/Vol] 0.04 10*3/uL Normal <0.11 [facility] Comment on above: Order Comment: Speci men Type: BLOOD SPECIMEN Ordering Facility: [facility] Address: [address] [address] Performed By: #### 5 7021-8 #### [facility] CLIA [id number] [address] [place] [address] Basophils/100 WBC (Bld) 0.8 % Normal [facility] Comment on above: Order Comment: Speci men Type: BLOOD SPECIMEN Ordering Facility: [facility] Address: [address] [place] [address] Performed By: #### 5 7021-8 #### [facility] CLIA [id number] [address] [place] [address] Differential cell count method Nom (Bld) Auto Normal [facility] Comment on above: Order Comment: Speci men Type: BLOOD SPECIMEN Ordering Facility: [facility] Address: [address] [address] Performed By: #### 5 7021-8 #### [facility] CLIA [id number] [address] [place] [address] Eosinophils (Bld) [#/Vol] 0.14 10*3/uL Normal <0.46 [facility] Comment on above: Order Comment: Speci men Type: BLOOD SPECIMEN Ordering Facility: [facility] Address: [address] [address] Performed By: #### 5 7021-8 #### [facility] CLIA [id number] [address] [place] [address] Eosinophils/100 WBC (Bld) 2.9 % Normal [facility] Comment on above: Order Comment: Speci men Type: BLOOD SPECIMEN Ordering Facility: [facility] Address: [address] [address] Performed By: #### 5 7021-8 #### [facility] CLIA [id number] [address] [place] [address] Erythrocyte distribution width (RBC) [Ratio] 13.6 % Normal 11.5-15.0 [facility] Comment on above: Order Comment: Speci men Type: BLOOD SPECIMEN Ordering Facility: [facility] Address: [address] [address] Performed By: #### 5 7021-8 #### [facility] CLIA [id number] [address] [place] [address] Hematocrit (Bld) [Volume fraction] 28.8 % Low 36.0-46.0 [facility] Comment on above: Order Comment: Speci men Type: BLOOD SPECIMEN Ordering Facility: [facility] Address: [address] [address] Performed By: #### 5 7021-8 #### [facility] CLIA [id number] [address] [place] [address] Hemoglobin (Bld) [Mass/Vol] 9.2 g/dL Low 11.5-15.5 [facility] Comment on above: Order Comment: Speci men Type: BLOOD SPECIMEN Ordering Facility: [facility] Address: [address] [address] Performed By: #### 5 7021-8 #### [facility] CLIA [id number] [address] [place] [address] Immature granulocytes (Bld) [#/Vol] 10*3/uL Normal <0.10 [facility] Comment on above: Order Comment: Speci men Type: BLOOD SPECIMEN Ordering Facility: [facility] Address: [address] [address] Performed By: #### 5 7021-8 #### [facility] CLIA [id number] [address] [place] [address] Immature granulocytes/100 WBC (Bld) 0.4 % Normal [facility] Comment on above: Order Comment: Speci men Type: BLOOD SPECIMEN Ordering Facility: [facility] Address: [address] [place] [address] Performed By: #### 5 7021-8 #### [facility] CLIA [id number] [address] [place] [address] Lymphocytes (Bld) [#/Vol] 0.83 10*3/uL Low 1.00-4.00 [facility] Comment on above: Order Comment: Speci men Type: BLOOD SPECIMEN Ordering Facility: [facility] Address: [address] [place] [address] Performed By: #### 5 7021-8 #### [facility] CLIA [id number] [address] [place] [address] Lymphocytes/100 WBC (Bld) 17.4 % Normal [facility] Comment on above: Order Comment: Speci men Type: BLOOD SPECIMEN Ordering Facility: [facility] Address: [address] [address] Performed By: #### 5 7021-8 #### [facility] CLIA [id number] [address] [place] [address] MCH (RBC) [Entitic mass] 29.6 pg Normal 26.0-34.0 [facility] Comment on above: Order Comment: Speci men Type: BLOOD SPECIMEN Ordering Facility: [facility] Address: [address] [address] Performed By: #### 5 7021-8 #### [facility] CLIA [id number] [address] [place] [address] MCHC (RBC) [Mass/Vol] 31.9 g/dL Normal 30.5-36.0 [facility] Comment on above: Order Comment: Speci men Type: BLOOD SPECIMEN Ordering Facility: [facility] Address: [address] [address] Performed By: #### 5 7021-8 #### [facility] CLIA [id number] [address] [place] [address]85 MCV (RBC) [Entitic vol] 92.6 fL Normal 80.0-100.0 [facility] Comment on above: Order Comment: Speci men Type: BLOOD SPECIMEN Ordering Facility: [facility] Address: [address] [address] Performed By: #### 5 7021-8 #### [facility] CLIA [id number] [address] [place] [address] Monocytes (Bld) [#/Vol] 0.40 10*3/uL Normal <0.87 [facility] Comment on above: Order Comment: Speci men Type: BLOOD SPECIMEN Ordering Facility: [facility] Address: [address] [address] Performed By: #### 5 7021-8 #### [facility] CLIA [id number] [address] [place] [address] Monocytes/100 WBC (Bld) 8.4 % Normal [facility] Comment on above: Order Comment: Speci men Type: BLOOD SPECIMEN Ordering Facility: [facility] Address: [address] [address] Performed By: #### 5 7021-8 #### [facility] CLIA [id number] [address] [place] [address] Neutrophils (Bld) [#/Vol] 3.35 10*3/uL Normal 1.45-7.50 [facility] Comment on above: Order Comment: Speci men Type: BLOOD SPECIMEN Ordering Facility: [facility] Address: [address] [address] Performed By: #### 5 7021-8 #### [facility] CLIA [id number] [address] [place] [address]12 Neutrophils/100 WBC (Bld) 70.1 % Normal [facility] Comment on above: Order Comment: Speci men Type: BLOOD SPECIMEN Ordering Facility: [facility] Address: [address] [address] Performed By: #### 5 7021-8 #### [facility] CLIA [id number] [address] [place] [address]36 Nucleated RBC (Bld) [#/Vol] 10*3/uL Normal <0.01 [facility] Comment on above: Order Comment: Speci men Type: BLOOD SPECIMEN Ordering Facility: [facility] Address: [address] [address] Performed By: #### 5 7021-8 #### [facility] CLIA [id number] [address] [place] [address]21 Nucleated RBC/100 WBC (Bld) [Ratio] 0.0 /100 WBC Normal [facility] Comment on above: Order Comment: Speci men Type: BLOOD SPECIMEN Ordering Facility: [facility] Address: [address] Performed By: #### 5 7021-8 #### [facility] CLIA [id number] [address] [place] [address] Platelet mean volume (Bld) [Entitic vol] 10.2 fL Normal 9.0-12.7 [facility] Comment on above: Order Comment: Speci men Type: BLOOD SPECIMEN Ordering Facility: [facility] Address: [address] [address] Performed By: #### 5 7021-8 #### [facility] CLIA [id number] [address] [place] [address]94 Platelets (Bld) [#/Vol] 274 10*3/uL Normal 150-400 [facility] Comment on above: Order Comment: Speci men Type: BLOOD SPECIMEN Ordering Facility: [facility] Address: [address] [place] [address] Performed By: #### 5 7021-8 #### [facility] CLIA [id number] [address] [place] [address] 15756 RBC (Bld) [#/Vol] 3.11 10*6/uL Low 3.90-5.20 [facility] Comment on above: Order Comment: Speci men Type: BLOOD SPECIMEN Ordering Facility: [facility] Address: [address] [place] [address] Performed By: #### 5 7021-8 #### [facility] CLIA [id number] [address] [place] [address] 96039 WBC (Bld) [#/Vol] 4.78 10*3/uL Normal 3.70-11.00 [facility] Comment on above: Order Comment: Speci men Type: BLOOD SPECIMEN Ordering Facility: [facility] Address: [address] [place] [address] Performed By: #### 5 7021-8 #### [facility] CLIA [id number] [address] [place] [address] 36501 Basophils (Bld) [#/Vol] 0.04 10*3/uL <0.11 k/uL [facility] Basophils/100 WBC (Bld) 0.8 % [facility] Differential cell count method Nom (Bld) Auto [facility] Eosinophils (Bld) [#/Vol] 0.14 10*3/uL <0.46 k/uL [facility] Eosinophils/100 WBC (Bld) 2.9 % [facility] Erythrocyte distribution width (RBC) [Ratio] 13.6 % 11.5 - 15.0 % [facility] Hematocrit (Bld) [Volume fraction] 28.8 % Low 36.0 - 46.0 % [facility] Hemoglobin (Bld) [Mass/Vol] 9.2 g/dL Low 11.5 - 15.5 g/dL [facility] Immature granulocytes (Bld) [#/Vol] <0.10 k/uL [facility] Immature granulocytes/100 WBC (Bld) 0.4 % [facility] Lymphocytes (Bld) [#/Vol] 0.83 10*3/uL Low 1.00 - 4.00 k/uL [facility] Lymphocytes/100 WBC (Bld) 17.4 % [facility] MCH (RBC) [Entitic mass] 29.6 pg 26.0 - 34.0 pg [facility] MCHC (RBC) [Mass/Vol] 31.9 g/dL 30.5 - 36.0 g/dL [facility] MCV (RBC) [Entitic vol] 92.6 fL 80.0 - 100.0 fL [facility] Monocytes (Bld) [#/Vol] 0.40 10*3/uL <0.87 k/uL [facility] Monocytes/100 WBC (Bld) 8.4 % [facility] Neutrophils (Bld) [#/Vol] 3.35 10*3/uL 1.45 - 7.50 k/uL [facility] Neutrophils/100 WBC (Bld) 70.1 % [facility] Nucleated RBC (Bld) [#/Vol] <0.01 k/uL [facility] Nucleated RBC/100 WBC (Bld) [Ratio] 0.0 /100 WBC [facility] Platelet mean volume (Bld) [Entitic vol] 10.2 fL 9.0 - 12.7 fL [facility] Platelets (Bld) [#/Vol] 274 10*3/uL 150 - 400 k/uL [facility] RBC (Bld) [#/Vol] 3.11 10*6/uL Low 3.90 - 5.2 0 m/uL [facility] WBC (Bld) [#/Vol] 4.78 10*3/uL 3.70 - 11.00 k/uL [facility] CNOVSPon 06-04-2023 CNOVSP Visit (SP) Office ([place]) ----- LASHAUN JOAQUIN ([id number]) 1940 F Date Time Provider Department 06/04/23 [...] breath and was hospitalized at [facility] and treated for suspected pneumonia. Apparently it was later felt she had heart disease, and cardiac catheterization revealed severe coronary artery disease. She subsequently underwent stent placement at [facility]. Apparently her shortness of breath persisted, and [...] EXAM: B (more content not included)... Normal [facility] ESR Westergren method (Bld) [Velocity]on 06-04-2023 ESR (Bld) [Velocity] 119 mm/h High 0-20 [facility] Comment on above: Order Comment: Speci men Type: BLOOD SPECIMEN Ordering Facility: [facility] Address: [address] [address] Performed By: #### 2 4323-8 #### [facility] CLIA [id number] [address] [place] [address] 77949 Ferritin SerPl-mCncon 2022 Ferritin [Mass/Vol] 160.0 ng/mL Normal 14.7-205.1 [facility] Comment on above: Order Comment: Speci men Type: BLOOD SPECIMEN Ordering Facility: [facility] Address: [address] [address] Performed By: #### 5 7021-8 #### [facility] CLIA [id number] [address] [place] [address] 41663 Iron and Iron binding capaci ty panelon 06-04-2023 Iron [Mass/Vol] 45 ug/dL Normal 41-186 [facility] Comment on above: Order Comment: Speci men Type: BLOOD SPECIMEN Ordering Facility: [facility] Address: [address] [address] Performed By: #### 2 4323-8 #### [facility] CLIA [id number] [address] [place] [address] 23428 Iron binding capacity [Mass/Vol] 252 ug/dL Normal 232-386 [facility] Comment on above: Order Comment: Speci men Type: BLOOD SPECIMEN Ordering Facility: [facility] Address: [address] [address] Performed By: #### 2 4323-8 #### [facility] CLIA [id number] [address] [place] [address] 01634 Iron/TIBC [Molar ratio] 17.9 % Normal 15.0-57.0 [facility] Comment on above: Order Comment: Speci men Type: BLOOD SPECIMEN Ordering Facility: [facility] Address: [address] [place] [address] Performed By: #### 2 4323-8 #### [facility] CLIA [id number] [address] [place] [address] 01316 RETIC COUNTon 06-04-2023 Reticulocytes (Bld) [#/Vol] 0.07479 10*3/uL 0.018 - 0.100 M/uL [facility] Retics #on 06-04-2023 Reticulocytes (Bld) [#/Vol] 0.36236 10*3/uL Normal 0.018-0.100 [facility] Comment on above: Order Comment: Speci men Type: BLOOD SPECIMEN Ordering Facility: [facility] Address: [address] [place] [address] Performed By: #### 5 7021-8 #### [facility] CLIA [id number] [address] [place] [address] 14836 Reticulocytes (Bld) [#/Vol]o n 06-04-2023 Reticulocytes/100 RBC (Bld) 2.0 % Normal 0.4-2.0 [facility] Comment on above: Order Comment: Speci men Type: BLOOD SPECIMEN Ordering Facility: [facility] Address: [address] [place] [address] Performed By: #### 5 7021-8 #### [facility] CLIA [id number] [address] [place] [address] 84070 Reticulocytes/100 RBC (Bld) 2.0 % 0.4 - 2.0 % [facility] Basic metabolic 2000 panelon 05-28-2023 Anion gap [Moles/Vol] 8 mmol/L Low 9-18 [facility] Comment on above: Order Comment: Speci men Type: BLOOD SPECIMEN Ordering Facility: [facility] Address: [address] [address] Performed By: #### 2 4323-8 #### [facility] CLIA [id number] [address] [place] [address] Calcium [Mass/Vol] 9.2 mg/dL Normal 8.5-10.2 [facility] Comment on above: Order Comment: Speci men Type: BLOOD SPECIMEN Ordering Facility: [facility] Address: [address] [address] Performed By: #### 2 4323-8 #### [facility] CLIA [id number] [address] [place] [address] Chloride [Moles/Vol] 104 mmol/L Normal 97-105 [facility] Comment on above: Order Comment: Speci men Type: BLOOD SPECIMEN Ordering Facility: [facility] Address: [address] [address] Performed By: #### 2 4323-8 #### [facility] CLIA [id number] [address] [place] [address] 37747 CO2 [Moles/Vol] 28 mmol/L Normal 22-30 [facility] Comment on above: Order Comment: Speci men Type: BLOOD SPECIMEN Ordering Facility: [facility] Address: [address] [address] Performed By: #### 2 4323-8 #### [facility] CLIA [id number] [address] [place] [address] 46805 Creatinine [Mass/Vol] 1.18 mg/dL High 0.58-0.96 [facility] Comment on above: Order Comment: Speci men Type: BLOOD SPECIMEN Ordering Facility: [facility] Address: [address] [address] Performed By: #### 2 4323-8 #### [facility] CLIA [id number] [address] [place] [address] 50662 ESTIMATED GLOMERULAR FILTRATION RATE 47 mL/min/1.73m??? Low >=60 [facility] Comment on above: Order Comment: Preet patino Type: BLOOD SPECIMEN Ordering Facility: [facility] Address: [address] [phone] Result Comment: Shoshana mated Glomerular Filtration Rate [...] GFR. Performed By: #### 2 4323-8 #### [facility] CLIA [id number] [address] [place] [address] 61673 Glucose [Mass/Vol] 127 mg/dL High 74-99 [facility] Comment on above: Order Comment: Preet patino Type: BLOOD SPECIMEN Ordering Facility: [facility] Address: [address] Result Comment: The [place] [employer] (ADA) provides guidance for cutoff [...] Standards of Medical Care in Diabetes 2016, [place] [employer]. Diabetes Care. 2016.39(Suppl 1). Performed By: #### 2 4323-8 #### [facility] CLIA [id number] [address] [place] [address] 33742 Potassium [Moles/Vol] 4.4 mmol/L Normal 3.7-5.1 [facility] Comment on above: Order Comment: Preet patino Type: BLOOD SPECIMEN Ordering Facility: [facility] Address: [address] [phone] Performed By: #### 2 4323-8 #### [facility] CLIA [id number] [address] [place] [address] 85927 Sodium [Moles/Vol] 140 mmol/L Normal 136-144 [facility] Comment on above: Order Comment: Speci men Type: BLOOD SPECIMEN Ordering Facility: [facility] Address: [address] [place] [address] Performed By: #### 2 4323-8 #### [facility] CLIA [id number] [address] [place] [address] 04954 Urea nitrogen [Mass/Vol] 23 mg/dL High 7-21 [facility] Comment on above: Order Comment: Speci men Type: BLOOD SPECIMEN Ordering Facility: [facility] Address: [address] [place] [address] Performed By: #### 2 4323-8 #### [facility] CLIA [id number] [address] [place], [place] [address] CBC W Auto Differential pane l (Bld)on 05-28-2023 Basophils (Bld) [#/Vol] 0.03 10*3/uL Normal <0.11 [facility] Comment on above: Order Comment: Speci men Type: BLOOD SPECIMEN Ordering Facility: [facility] Address: [address] [place] [address] Performed By: #### 5 7021-8 #### [facility] CLIA [id number] [address] [place] [address] 52739 Basophils/100 WBC (Bld) 0.6 % Normal [facility] Comment on above: Order Comment: Speci men Type: BLOOD SPECIMEN Ordering Facility: [facility] Address: [address] [place] [address] Performed By: #### 5 7021-8 #### [facility] CLIA [id number] [address] [place] [address] 17175 Differential cell count method Nom (Bld) Auto Normal [facility] Comment on above: Order Comment: Speci men Type: BLOOD SPECIMEN Ordering Facility: [facility] Address: [address] [address] Performed By: #### 5 7021-8 #### [facility] CLIA [id number] [address] [place] [address] 65019 Eosinophils (Bld) [#/Vol] 0.13 10*3/uL Normal <0.46 [facility] Comment on above: Order Comment: Speci men Type: BLOOD SPECIMEN Ordering Facility: [facility] Address: [address] [address] Performed By: #### 5 7021-8 #### [facility] CLIA [id number] [address] [place] [address] 73958 Eosinophils/100 WBC (Bld) 2.5 % Normal [facility] Comment on above: Order Comment: Speci men Type: BLOOD SPECIMEN Ordering Facility: [facility] Address: [address] [address] Performed By: #### 5 7021-8 #### [facility] CLIA [id number] [address] [place] [address] 15119 Erythrocyte distribution width (RBC) [Ratio] 13.7 % Normal 11.5-15.0 [facility] Comment on above: Order Comment: Speci men Type: BLOOD SPECIMEN Ordering Facility: [facility] Address: [address] [address] Performed By: #### 5 7021-8 #### [facility] CLIA [id number] [address] [place] [address] 08056 Hematocrit (Bld) [Volume fraction] 27.9 % Low 36.0-46.0 [facility] Comment on above: Order Comment: Speci men Type: BLOOD SPECIMEN Ordering Facility: [facility] Address: [address] [place] [address] Performed By: #### 5 7021-8 #### [facility] CLIA [id number] [address] [place] [address] 61691 Hemoglobin (Bld) [Mass/Vol] 8.8 g/dL Low 11.5-15.5 [facility] Comment on above: Order Comment: Speci men Type: BLOOD SPECIMEN Ordering Facility: [facility] Address: [address] [address] Performed By: #### 5 7021-8 #### [facility] CLIA [id number] [address] [place] [address] 10263 Immature granulocytes (Bld) [#/Vol] 10*3/uL Normal <0.10 [facility] Comment on above: Order Comment: Speci men Type: BLOOD SPECIMEN Ordering Facility: [facility] Address: [address] [address] Performed By: #### 5 7021-8 #### [facility] CLIA [id number] [address] [place] [address] 33866 Immature granulocytes/100 WBC (Bld) 0.4 % Normal [facility] Comment on above: Order Comment: Speci men Type: BLOOD SPECIMEN Ordering Facility: [facility] Address: [address] [address] Performed By: #### 5 7021-8 #### [facility] CLIA [id number] [address] [place] [address] 54194 Lymphocytes (Bld) [#/Vol] 0.88 10*3/uL Low 1.00-4.00 [facility] Comment on above: Order Comment: Speci men Type: BLOOD SPECIMEN Ordering Facility: [facility] Address: [address] [address] Performed By: #### 5 7021-8 #### [facility] CLIA [id number] [address] [place] [address] 50794 Lymphocytes/100 WBC (Bld) 16.8 % Normal [facility] Comment on above: Order Comment: Speci men Type: BLOOD SPECIMEN Ordering Facility: [facility] Address: [address] [address] Performed By: #### 5 7021-8 #### [facility] CLIA [id number] [address] [place] [address] 17228 MCH (RBC) [Entitic mass] 29.1 pg Normal 26.0-34.0 [facility] Comment on above: Order Comment: Speci men Type: BLOOD SPECIMEN Ordering Facility: [facility] Address: [address] [place] [address] Performed By: #### 5 7021-8 #### [facility] CLIA [id number] [address] [place] [address] 17277 MCHC (RBC) [Mass/Vol] 31.5 g/dL Normal 30.5-36.0 [facility] Comment on above: Order Comment: Speci men Type: BLOOD SPECIMEN Ordering Facility: [facility] Address: [address] [place] [address] Performed By: #### 5 7021-8 #### [facility] CLIA [id number] [address] [place] [address] 14570 MCV (RBC) [Entitic vol] 92.4 fL Normal 80.0-100.0 [facility] Comment on above: Order Comment: Speci men Type: BLOOD SPECIMEN Ordering Facility: [facility] Address: [address] [place] [address] Performed By: #### 5 7021-8 #### [facility] CLIA [id number] [address] [place] [address] 97055 Monocytes (Bld) [#/Vol] 0.43 10*3/uL Normal <0.87 [facility] Comment on above: Order Comment: Speci men Type: BLOOD SPECIMEN Ordering Facility: [facility] Address: [address] [place] [address] Performed By: #### 5 7021-8 #### [facility] CLIA [id number] [address] [place] [address] 37521 Monocytes/100 WBC (Bld) 8.2 % Normal [facility] Comment on above: Order Comment: Speci men Type: BLOOD SPECIMEN Ordering Facility: [facility] Address: [address] [address] Performed By: #### 5 7021-8 #### [facility] CLIA [id number] [address] [place] [address] 32057 Neutrophils (Bld) [#/Vol] 3.76 10*3/uL Normal 1.45-7.50 [facility] Comment on above: Order Comment: Speci men Type: BLOOD SPECIMEN Ordering Facility: [facility] Address: [address] [address] Performed By: #### 5 7021-8 #### [facility] CLIA [id number] [address] [place] [address] 81299 Neutrophils/100 WBC (Bld) 71.5 % Normal [facility] Comment on above: Order Comment: Speci men Type: BLOOD SPECIMEN Ordering Facility: [facility] Address: [address] [address] Performed By: #### 5 7021-8 #### [facility] CLIA [id number] [address] [place] [address] 81823 Nucleated RBC (Bld) [#/Vol] 10*3/uL Normal <0.01 [facility] Comment on above: Order Comment: Speci men Type: BLOOD SPECIMEN Ordering Facility: [facility] Address: [address] [address] Performed By: #### 5 7021-8 #### [facility] CLIA [id number] [address] [place] [address] 35775 Nucleated RBC/100 WBC (Bld) [Ratio] 0.0 /100 WBC Normal [facility] Comment on above: Order Comment: Speci men Type: BLOOD SPECIMEN Ordering Facility: [facility] Address: [address] [place] [address] Performed By: #### 5 7021-8 #### [facility] CLIA [id number] [address] [place] [address] 61739 Platelet mean volume (Bld) [Entitic vol] 10.2 fL Normal 9.0-12.7 [facility] Comment on above: Order Comment: Speci men Type: BLOOD SPECIMEN Ordering Facility: [facility] Address: [address] [place] [address] Performed By: #### 5 7021-8 #### [facility] CLIA [id number] [address] [place] [address] 10473 Platelets (Bld) [#/Vol] 238 10*3/uL Normal 150-400 [facility] Comment on above: Order Comment: Speci men Type: BLOOD SPECIMEN Ordering Facility: [facility] Address: [address] [place] [address] Performed By: #### 5 7021-8 #### [facility] CLIA [id number] [address] [place] [address] 69212 RBC (Bld) [#/Vol] 3.02 10*6/uL Low 3.90-5.20 [facility] Comment on above: Order Comment: Speci men Type: BLOOD SPECIMEN Ordering Facility: [facility] Address: [address] [place] [address] Performed By: #### 5 7021-8 #### [facility] CLIA [id number] [address] [place] [address] 61536 WBC (Bld) [#/Vol] 5.25 10*3/uL Normal 3.70-11.00 [facility] Comment on above: Order Comment: Speci men Type: BLOOD SPECIMEN Ordering Facility: [facility] Address: [address] [place] [address] Performed By: #### 5 7021-8 #### [facility] CLIA [id number] [address] [place] [address] 77910 IMMUNOFIXATION SCREEN, SERUM on 05-28-2023 MPA RESULT No M protein is identified. Normal No M protein is identified. [facility] Comment on above: Order Comment: Speci men Type: BLOOD SPECIMEN Ordering Facility: [facility] Address: [address] [place] [address] Performed By: #### 5 7021-8 #### [facility] CLIA [id number] [address] [place] [address] 93832 STAFF REVIEW (RUST) Reviewed by Milka Bahena MD [facility] Comment on above: Order Comment: Speci men Type: BLOOD SPECIMEN Ordering Facility: [facility] Address: [address] [place] [address] Performed By: #### 5 7021-8 #### [facility] CLIA [id number] [address] [place] [address] 02645 IMMUNOGLOBULINS GAMon 2022 IgA [Mass/Vol] 77 mg/dL Normal 70-400 [facility] Comment on above: Order Comment: Speci men Type: BLOOD SPECIMEN Ordering Facility: [facility] Address: [address] [place] [address] Performed By: #### K LFRS #### [facility] CLIA [id number] [address] [place] [address] [place] IgG [Mass/Vol] 682 mg/dL Low 700-1600 [facility] Comment on above: Order Comment: Speci men Type: BLOOD SPECIMEN Ordering Facility: [facility] Address: [address] [place] [address] Performed By: #### K LFRS #### [facility] CLIA [id number] [address] [place] [address] [place] IgM [Mass/Vol] 285 mg/dL High 40-230 [facility] Comment on above: Order Comment: Speci men Type: BLOOD SPECIMEN Ordering Facility: [facility] Address: [address] [place] [address] Performed By: #### K LFRS #### [facility] CLIA [id number] [address] [place] [address] [place] KAPPA/BOWLES,FREE,SERon 2022 Immunoglobulin light chains.kappa.free (S) [Mass/Vol] 111.0 mg/L High 3.3-19.4 [facility] Comment on above: Order Comment: Speci men Type: BLOOD SPECIMEN Ordering Facility: [facility] Address: [address] [place] [address] Result Comment: Rare ly, increased serum free light chains levels may not be detected or accurately quantified due to prozone phenomenon or in high viscosity samples using this immunoturbidimetric assay. Correlation with other laboratory results and clinical findings is recommended. The [place] Free Light Chain was performed using the Binding Site Optilite immunoturbidimetric method. Result obtained with different assay methods or kits cannot be used interchangeably. Performed By: #### 2 4323-8 #### [facility] CLIA [id number] [address] [place] [address] 14707 Immunoglobulin light chains.kappa/Immunogl obulin light chains.lambda (S) [Mass ratio] 4.48 High 0.26-1.65 [facility] Comment on above: Order Comment: Speci carey Type: BLOOD SPECIMEN Ordering Facility: [facility] Address: [address] [place] [address] Performed By: #### 2 4323-8 #### [facility] CLIA [id number] [address] [place], [place] [address] Immunoglobulin light chains.lambda.free [Mass/Vol] 24.8 mg/L Normal 5.7-26.3 [facility] Comment on above: Order Comment: Specterrie patino Type: BLOOD SPECIMEN Ordering Facility: [facility] Address: [address] [place] [address] Result Comment: Rare ly, increased serum free [...] interchangeably. Performed By: #### 2 4323-8 #### [facility] CLIA [id number] [address] [place] [address] 04378 PROTEIN ELECTROPHORESIS SERU M WITH BRANDON (P)on 05-28-2023 Albumin [Mass/Vol] 3.50 g/dL Normal 3.43-5.41 [facility] Comment on above: Order Comment: Speci men Type: BLOOD SPECIMEN Ordering Facility: [facility] Address: [address] [place] [address] Performed By: #### K LFRS #### [facility] CLIA [id number] [address] [place] [address] [place] Alpha 1 globulin Elph [Mass/Vol] 0.35 g/dL Normal 0.18-0.43 [facility] Comment on above: Order Comment: Speci men Type: BLOOD SPECIMEN Ordering Facility: [facility] Address: [address] [place] [address] Performed By: #### K LFRS #### [facility] CLIA [id number] [address] [place] [address] [place] Alpha 2 globulin Elph [Mass/Vol] 0.73 g/dL Normal 0.42-0.98 [facility] Comment on above: Order Comment: Speci men Type: BLOOD SPECIMEN Ordering Facility: [facility] Address: [address] [place] [address] Performed By: #### K LFRS #### [facility] CLIA [id number] [address] [place] [address] [place] Beta globulin Elph [Mass/Vol] 0.60 g/dL Low 0.61-1.17 [facility] Comment on above: Order Comment: Speci men Type: BLOOD SPECIMEN Ordering Facility: [facility] Address: [address] [place] [address] Performed By: #### K LFRS #### [facility] CLIA [id number] [address] [place] [address] [place] COMMENT (SERUM PROT ELECTRO) Monoclonal Protein analysis (immunofixation) is not indicated. Normal [facility] Comment on above: Order Comment: Speci men Type: BLOOD SPECIMEN Ordering Facility: [facility] Address: [address] [place] [address] Performed By: #### K LFRS #### [facility] CLIA [id number] [address] [place] [address] [place] Gamma globulin Elph [Mass/Vol] 0.72 g/dL Normal 0.53-1.51 [facility] Comment on above: Order Comment: Speci men Type: BLOOD SPECIMEN Ordering Facility: [facility] Address: [address] [place] [address] Performed By: #### K LFRS #### [facility] CLIA [id number] [address] [place] [address] [place] M-PROTEIN LOCATION Normal [facility] Comment on above: Order Comment: Speci men Type: BLOOD SPECIMEN Ordering Facility: [facility] Address: [address] [place] [address] Result Comment: Not Applicable. Performed By: #### K LFRS #### [facility] CLIA [id number] [facility] [place] [address] [place] Protein Fractions [Interp] No definitive M protein is identified on protein electrophoresis. Normal No definitive M protein is identified on protein electrophor esis. [facility] Comment on above: Order Comment: Speci men Type: BLOOD SPECIMEN Ordering Facility: [facility] Address: [address] [place] [address] Performed By: #### K LFRS #### [facility] CLIA [id number] [address] [place] [address] [place] Protein.monoclonal Elph [Mass/Vol] 0.00 g/dL Normal <=0.00 [facility] Comment on above: Order Comment: Speci men Type: BLOOD SPECIMEN Ordering Facility: [facility] Address: [address] [place] [address] Performed By: #### K LFRS #### [facility] CLIA [id number] [facility] [place] [address] [place] SPE STAFF REVIEW Reviewed by Milka Bahena MD Normal [facility] Comment on above: Order Comment: Speci men Type: BLOOD SPECIMEN Ordering Facility: [facility] Address: [address] [place] [address] Performed By: #### K LFRS #### [facility] CLIA [id number] [address] [place] [address] [place] Prot SerPl-mCncon 05-28-2023 Protein [Mass/Vol] 5.9 g/dL Low 6.3-8.0 [facility] Comment on above: Order Comment: Speci men Type: BLOOD SPECIMEN Ordering Facility: [facility] Address: [address] [place] [address] Performed By: #### K LFRS #### [facility] CLIA [id number] [address] [place] [address] [place] Basophils Auto (Bld) [#/Vol] Ordered By: Lj Ryan on 05-18-2023 Basophils (Bld) [#/Vol] 0.0 10*3/uL 0.0-0.2 [facility] Basophils/100 WBC Auto (Bld) Ordered By: Lj Ryan on 05-18-2023 Basophils/100 WBC (Bld) 0.7 % . [facility] Calcium [Mass/volume] in Ser um or PlasmaOrdered By: Lj Ryan on 05-18-2023 Calcium [Mass/Vol] 8.9 mg/dL 8.6-10.3 [facility] Carbon dioxide, total [Moles /volume] in Serum or PlasmaOrdered By: Lj Ryan on 05-18-2023 CO2 [Moles/Vol] 30.5 mmol/L 21.0-31.0 [facility] Chloride [Moles/volume] in S courtney or PlasmaOrdered By: Lj Ryan on 05-18-2023 Chloride [Moles/Vol] 103 mmol/L 98-107 [facility] Creatinine [Mass/volume] in Serum or PlasmaOrdered By: Lj Ryan on 05-18-2023 Creatinine [Mass/Vol] 1.37 mg/dL 0.60-1.20 [facility] Eosinophils Auto (Bld) [#/Vo l]Ordered By: Lj Ryan on 05-18-2023 Eosinophils (Bld) [#/Vol] 0.1 10*3/uL 0.0-0.45 [facility] Eosinophils/100 WBC Auto (Bl d)Ordered By: Lj Ryan on 05-18-2023 Eosinophils/100 WBC (Bld) 1.9 % . [facility] Erythrocyte distribution wid th Auto (RBC) [Ratio]Ordered By: Lj Ryan on 05-18-2023 Erythrocyte distribution width (RBC) [Ratio] 14.1 % 11.9-15.3 [facility] Glucose [Mass/volume] in Ser um or PlasmaOrdered By: Lj Ryan on 05-18-2023 Glucose [Mass/Vol] 94 mg/dL 70-100 [facility] Comment on above: ADA recommended refe rence rangeRandom Glucose Reference Range is dependent on time and content of last meal. Glucose of more than 200 mg/dL in a nonstressed, ambulatory subject supports the diagnosis of Diabetes Mellitus. Hematocrit Auto (Bld) [Volum e fraction]Ordered By: Lj Ryan on 05-18-2023 Hematocrit (Bld) [Volume fraction] 28.2 % 34.0-46.4 [facility] Hemoglobin [Mass/volume] in BloodOrdered By: Lj Ryan on 05-18-2023 Hemoglobin (Bld) [Mass/Vol] 9.7 g/dL 11.8-15.4 [facility] Leukocytes [#/volume] correc miguel for nucleated erythrocytes in Blood by Automated counOrdered By: Lj Ryan on 05-18-2023 WBC corrected for nucl RBC Auto (Bld) [#/Vol] 6.0 10*3/uL 3.8-11.6 [facility] Lymphocytes Auto (Bld) [#/Vo l]Ordered By: Lj Ryan on 05-18-2023 Lymphocytes (Bld) [#/Vol] 0.9 10*3/uL 1.00-4.8 [facility] Lymphocytes/100 WBC Auto (Bl d)Ordered By: Lj Ryan on 05-18-2023 Lymphocytes/100 WBC (Bld) 15.1 % . [facility] MCH Auto (RBC) [Entitic mass ]Ordered By: Lj Ryan on 05-18-2023 MCH (RBC) [Entitic mass] 30.2 pg 24.7-34.3 [facility] MCHC Auto (RBC) [Mass/Vol]Or dered By: Lj Ryan on 05-18-2023 MCHC (RBC) [Mass/Vol] 34.4 g/dL 32.0-35.0 [facility] MCV Auto (RBC) [Entitic vol] Ordered By: Lj Ryan on 05-18-2023 MCV (RBC) [Entitic vol] 87.7 fL 80-100 [facility] Magnesium [Mass/volume] in S courtney or PlasmaOrdered By: Lj Ryan on 05-18-2023 Magnesium [Mass/Vol] 2.1 mg/dL 1.9-2.7 [facility] Monocytes Auto (Bld) [#/Vol] Ordered By: Lj Ryan on 05-18-2023 Monocytes (Bld) [#/Vol] 0.5 10*3/uL 0.0-0.8 [facility] Monocytes/100 WBC Auto (Bld) Ordered By: Lj Ryan on 05-18-2023 Monocytes/100 WBC (Bld) 8.7 % . [facility] Neutrophils Auto (Bld) [#/Vo l]Ordered By: Lj Ryan on 05-18-2023 Neutrophils (Bld) [#/Vol] 4.4 10*3/uL 1.8-7.7 [facility] Neutrophils/100 WBC Auto (Bl d)Ordered By: Lj Ryan on 05-18-2023 Neutrophils/100 WBC (Bld) 73.6 % . [facility] No Panel InformationOrdered By: Lj Ryan on 05-18-2023 Estimated GFR (CKD-EPI) 39.034 mL/Min [facility] Creatinine Clearance (Chem 38.04 [facility] Nucleated erythrocytes [Pres ence] in Blood by Automated countOrdered By: Lj Ryan on 05-18-2023 Nucleated RBC Auto Ql (Bld) 0.1 /100{WBC} 0-0.5 [facility] Phosphate [Mass/volume] in S courtney or PlasmaOrdered By: Lj Ryan on 05-18-2023 Phosphate [Mass/Vol] 5.3 mg/dL 3.7-7.2 [facility] Platelet mean volume Auto (B ld) [Entitic vol]Ordered By: Lj Ryan on 05-18-2023 Platelet mean volume (Bld) [Entitic vol] 7.8 fL 6.3-10.7 [facility] Platelets Auto (Bld) [#/Vol] Ordered By: Lj Ryan on 05-18-2023 Platelets (Bld) [#/Vol] 314 10*3/uL 150-450 [facility] Potassium [Moles/volume] in Serum or PlasmaOrdered By: Lj Ryan on 05-18-2023 Potassium [Moles/Vol] 4.0 mmol/L 3.5-5.1 [facility] RBC Auto (Bld) [#/Vol]Ordere d By: Lj Ryan on 05-18-2023 RBC (Bld) [#/Vol] 3.21 10*6/uL 3.60-5.00 [facility] Serum or plasma anion gap de terminationOrdered By: Lj Ryan on 05-18-2023 Anion gap [Moles/Vol] 12.5 mmol/L 6.0-15.0 [facility] Sodium [Moles/volume] in Ser um or PlasmaOrdered By: Lj Ryan on 05-18-2023 Sodium [Moles/Vol] 142 mmol/L 136-145 [facility] Urea nitrogen [Mass/volume] in Serum or PlasmaOrdered By: Lj Ryan on 05-18-2023 Urea nitrogen [Mass/Vol] 21 mg/dL 7-25 [facility] WBC Auto (Bld) [#/Vol]Ordere d By: Lj Ryan on 05-18-2023 WBC (Bld) [#/Vol] 6.0 10*3/uL 3.8-11.6 [facility] Alanine aminotransferase [En zymatic activity/volume] in Serum or PlasmaOrdered By: Fernando Ch on 05-17-2023 ALT [Catalytic activity/Vol] 14 U/L 7-52 [facility] Albumin [Mass/volume] in Ser um or Plasma by Bromocresol green (BCG) dye binding methoOrdered By: Fernando Ch on 05-17-2023 Albumin BCG dye [Mass/Vol] 4.0 g/dL 3.5-5.7 [facility] Alkaline phosphatase [Enzyma tic activity/volume] in Serum or PlasmaOrdered By: Fernando Ch on 05-17-2023 ALP [Catalytic activity/Vol] 44 U/L 34-104 [facility] Aspartate aminotransferase [ Enzymatic activity/volume] in Serum or PlasmaOrdered By: Fernando Ch on 05-17-2023 AST [Catalytic activity/Vol] 16 U/L 13-39 [facility] Bilirubin.total [Mass/volume ] in Serum or PlasmaOrdered By: Fernando Ch on 05-17-2023 Bilirubin [Mass/Vol] 0.7 mg/dL 0.3-1.0 [facility] Creatine kinase [Enzymatic a ctivity/volume] in Serum or PlasmaOrdered By: Fernando Ch on 05-17-2023 CK [Catalytic activity/Vol] 49 U/L 30-223 [facility] Globulin Calc (S) [Mass/Vol] Ordered By: Fernando Ch on 05-17-2023 Globulin (S) [Mass/Vol] 2.9 g/dL [facility] Laboratory - CoagulationOrde red By: Fernando Ch on 05-17-2023 PT Coag (PPP) [Time] 12.5 s 9.0-12.9 [facility] Monocyte distribution width [Entitic volume] in Blood by AutomatedOrdered By: Fernando Ch on 05-17-2023 Monocyte distribution width Auto (Bld) [Entitic vol] 22.37 % 0.00-20.00 [facility] Comment on above: For adults in ED, MD W > 20.0 may be associated with a higher risk of sepsis during the first 12 hrs of hospital admission Natriuretic peptide B [Mass/ Vol]Ordered By: Fernando Ch on 05-17-2023 Natriuretic peptide B (Bld) [Mass/Vol] 450.0 pg/mL 5-100 [facility] Platelet poor plasma interna tional normalized ratio (INR) by coagulation assay (relatOrdered By: Fernando Ch on 05-17-2023 INR Coag (PPP) [Relative time] 1.1 {INR} [facility] Comment on above: INR Therapeutic Rang e [...] on 05-17-2023 Protein [Mass/Vol] 6.9 g/dL 6.4-8.9 [facility] Serum or plasma albumin/glob ulin mass ratioOrdered By: Fernando Ch on 05-17-2023 Albumin/Globulin [Mass ratio] 1.4 {ratio} [facility] Troponin I.cardiac [Mass/vol ume] in Serum or Plasma by Detection limit <= 0.01 ng/Ordered By: Fernando Ch on 05-17-2023 Troponin I.cardiac DL <= 0.01 ng/mL [Mass/Vol] 10.2 pg/mL 0.0-15.0 [facility] Activated partial thrombopla stin time (aPTT) in platelet poor plasma by coagulation aOrdered By: Jonna Perry on 03-08-2023 aPTT Coag (PPP) [Time] 32.0 s 25.1-36.5 [facility] Band form neutrophils/100 WB C Manual cnt (Bld)Ordered By: Jonna Perry on 03-08-2023 Band form neutrophils/100 WBC (Bld) 4 % 0-5 [facility] Basophils Auto (Bld) [#/Vol] Ordered By: Jonna Perry on 03-08-2023 Basophils (Bld) [#/Vol] N/A [facility] Basophils/100 WBC Auto (Bld) Ordered By: Jonna Perry on 03-08-2023 Basophils/100 WBC (Bld) N/A [facility] Basophils/100 WBC Manual cnt (Bld)Ordered By: Jonna Perry on 03-08-2023 Basophils/100 WBC (Bld) 0 % 0-2 [facility] Carbon dioxide, total [Moles /volume] in Serum or PlasmaOrdered By: Jonna Perry on 03-08-2023 CO2 [Moles/Vol] 33.1 mmol/L 21.0-31.0 [facility] Chloride [Moles/volume] in S courtney or PlasmaOrdered By: Jonna Perry on 03-08-2023 Chloride [Moles/Vol] 104 mmol/L 98-107 [facility] Cholesterol [Mass/volume] in Serum or PlasmaOrdered By: Jonna Perry on 03-08-2023 Cholesterol [Mass/Vol] 151 mg/dL 140-200 [facility] Comment on above: Chol less than 200 m g/dl low riskChol 201-239 mg/dl borderline riskChol 240 mg/dl and greater high risk Cholesterol in LDL Calc [Mas s/Vol]Ordered By: Jonna Perry on 03-08-2023 Cholesterol in LDL [Mass/Vol] 100 mg/dL 0-100 [facility] Comment on above: LDL ATP III CLASSIFI CATIONLDL less than 100 mg/dL OptimalLDL 100-129 mg/dL Near or above optimalLDL 130-159 mg/dL Borderline highLDL 160-189 mg/dL HighLDL greater than 189 mg/dL Very high Cholesterol in VLDL Calc [Ma ss/Vol]Ordered By: Jonna Perry on 03-08-2023 Cholesterol in VLDL [Mass/Vol] 13 mg/dL [facility] Creatinine [Mass/volume] in Serum or PlasmaOrdered By: Jonna Perry on 03-08-2023 Creatinine [Mass/Vol] 1.14 mg/dL 0.60-1.20 [facility] Eosinophils Auto (Bld) [#/Vo l]Ordered By: Jonna Perry on 03-08-2023 Eosinophils (Bld) [#/Vol] N/A [facility] Eosinophils/100 WBC Auto (Bl d)Ordered By: Jonna Perry on 03-08-2023 Eosinophils/100 WBC (Bld) N/A [facility] Eosinophils/100 WBC Manual c nt (Bld)Ordered By: Jonna Perry on 03-08-2023 Eosinophils/100 WBC (Bld) 2 % 1-3 [facility] Erythrocyte distribution wid th Auto (RBC) [Ratio]Ordered By: Jonna Perry on 03-08-2023 Erythrocyte distribution width (RBC) [Ratio] 14.1 % 11.9-15.3 [facility] Hematocrit Auto (Bld) [Volum e fraction]Ordered By: Jonna Perry on 03-08-2023 Hematocrit (Bld) [Volume fraction] 30.7 % 34.0-46.4 [facility] Hemoglobin [Mass/volume] in BloodOrdered By: Jonna Perry on 03-08-2023 Hemoglobin (Bld) [Mass/Vol] 10.3 g/dL 11.8-15.4 [facility] Laboratory - Chemistry and C hemistry - challengeon 03-08-2023 Cholesterol [Mass/Vol] 151\S\151 Normal 140-200 [facility] y [address] DO Work Phone: Comment on above: Chol less than 200 m g/dl low risk Chol 201-239 mg/dl borderline risk Chol 240 mg/dl and greater high risk Cholesterol in LDL [Mass/Vol] 100\S\100 Normal 0-100 [facility] y 250 DO Work Phone: Comment on above: LDL ATP III CLASSIFI CATION LDL less than 100 mg/dL Optimal LDL 100-129 mg/dL Near or above optimal LDL 130-159 mg/dL Borderline high LDL 160-189 mg/dL High LDL greater than 189 mg/dL Very high Laboratory - CoagulationOrde red By: Jonna Perry on 03-08-2023 PT Coag (PPP) [Time] 12.2 s 9.0-12.9 [facility] Leukocytes [#/volume] correc miguel for nucleated erythrocytes in Blood by Automated counOrdered By: Jonna Perry on 03-08-2023 WBC corrected for nucl RBC Auto (Bld) [#/Vol] 6.2 10*3/uL 3.8-11.6 [facility] Lymphocytes Auto (Bld) [#/Vo l]Ordered By: Jonna Perry on 03-08-2023 Lymphocytes (Bld) [#/Vol] N/A [facility] Lymphocytes/100 WBC Auto (Bl d)Ordered By: Jonna Perry on 03-08-2023 Lymphocytes/100 WBC (Bld) N/A [facility] Lymphocytes/100 WBC Manual c nt (Bld)Ordered By: Jonna Perry on 03-08-2023 Lymphocytes/100 WBC (Bld) 16 % 18-42 [facility] MCH Auto (RBC) [Entitic mass ]Ordered By: Jonna Perry on 03-08-2023 MCH (RBC) [Entitic mass] 29.0 pg 24.7-34.3 [facility] MCHC Auto (RBC) [Mass/Vol]Or dered By: Jonna Perry on 03-08-2023 MCHC (RBC) [Mass/Vol] 33.6 g/dL 32.0-35.0 [facility] MCV Auto (RBC) [Entitic vol] Ordered By: Jonna Perry on 03-08-2023 MCV (RBC) [Entitic vol] 86.2 fL 80-100 [facility] Metamyelocytes/100 WBC Manua l cnt (Bld)Ordered By: Jonna Perry on 03-08-2023 Metamyelocytes/100 WBC (Bld) 1 % 0-0 [facility] Monocytes Auto (Bld) [#/Vol] Ordered By: Jonna Perry on 03-08-2023 Monocytes (Bld) [#/Vol] N/A [facility] Monocytes/100 WBC Auto (Bld) Ordered By: Jonna Perry on 03-08-2023 Monocytes/100 WBC (Bld) N/A [facility] Monocytes/100 WBC Manual cnt (Bld)Ordered By: Jonna Perry on 03-08-2023 Monocytes/100 WBC (Bld) 3 % 2-11 [facility] Neutrophils Auto (Bld) [#/Vo l]Ordered By: Jonna Perry on 03-08-2023 Neutrophils (Bld) [#/Vol] N/A [facility] Neutrophils/100 WBC Auto (Bl d)Ordered By: Jonna Perry on 03-08-2023 Neutrophils/100 WBC (Bld) N/A [facility] No Panel InformationOrdered By: Jonna Perry on 03-08-2023 Estimated GFR (CKD-EPI) 48.665 mL/Min [facility] Creatinine Clearance (Chem N/A [facility] No Panel Informationon 03-08 32.0\S\32.0 Normal 25.1-36.5 [facility] [address] DO Work Phone: Comment on above: PERFORMED BY:[place] [id number] [address] [place], [place] [id number] MEDICAL DIRECTORJAMAAL MO M.D. 1.1\S\1.1 [facility] Work Phone: Comment on [...] valves: 3 - 4.5 12.2\S\12.2 Normal 9.0-12.9 [facility] [address] DO Work Phone: 9.0\S\9.0 Normal 6.3-10.7 [facility] DO Work Phone: 33.1\S\33.1 above high threshold 21.0-31.0 [facility] [address] DO Work Phone: 104\S\104 Normal 98-107 [facility] DO Work Phone: 5.1\S\5.1 Normal 3.5-5.1 [facility] DO Work Phone: [phone] 141\S\141 Normal 136-145 [facility] [address] [place] [address] DO Work Phone: [phone] 21\S\21 Normal 7-25 [facility] [address] [place] [address] DO Work Phone: [phone] 48.665\S\48.665 Normal [facility] [address] [place] [address] DO Work Phone: [phone] 1.14\S\1.14 Normal 0.60-1.20 [facility] [address] [place] [address] DO Work Phone: [phone] 4.0\S\4.0 Normal <5.0 [facility] [address] [place] [address] DO Work Phone: Comment on above: PERFORMED BY:[place] [address] [address] [place], [place] [phone] MEDICAL DIRECTORJAMAAL MO M.D. 13\S\13 Normal [facility] [address] [place] [address] DO Work Phone: 67\S\67 Normal 0-149 [facility] [address] [place] [address] DO Work Phone: Comment on above: TRIG ATP III CLASSIF ICATION TRIG less than 150 mg/dL Normal TRIG 150-199 mg/dL Borderline high TRIG 200-500 mg/dL High TRIG greater than 500 mg/dL Very high Standard traceable to the Center for Disease Conrtrol and Prevention (CDC) test method. 38\S\38 Normal 35-85 [facility] [address] [place] [address] DO Work Phone: Comment on above: HDL CHOL ATP-III CLA SSIFICATION Cardiovascular Risk HDL > or equal to 60 mg/dL LOW HDL < 40 mg/dL HIGH 74\S\74 above high threshold 50-70 [facility] [address] [place] [address] DO Work Phone: 276\S\276 Normal 150-450 [facility] [address] [place] [address] DO Work Phone: 14.1\S\14.1 Normal 11.9-15.3 -[facility] 250 DO Work Phone: [phone] 33.6\S\33.6 Normal 32.0-35.0 [facility] 250 DO Work Phone: [phone] 29.0\S\29.0 Normal 24.7-34.3 -[facility] 250 DO Work Phone: [phone] 1\S\1 above high threshold 0-0 -[facility] 250 DO Work Phone: [phone] 0\S\0 Normal 0-2 -[facility] 250 DO Work Phone: [phone] 2\S\2 Normal 1-3 -[facility] 250 DO Work Phone: [phone] 3\S\3 Normal 2-11 -[facility] 250 DO Work Phone: [phone] 16\S\16 below low threshold 18-42 [facility] 250 DO Work Phone: [phone] 4\S\4 Normal 0-5 -[facility] 250 DO Work Phone: [phone] Slight Normal [facility] [address] DO Work Phone: [phone] Comment on above: PERFORMED BY:[facility] [place], [place] [id number] MEDICAL DIRECTORJAMAAL MO M.D. Normal Normal Normal [facility] 250 DO Work Phone: [phone] 86.2\S\86.2 Normal 80-100 [facility] DO Work Phone: [phone] 30.7\S\30.7 below low threshold 34.0-46.4 [facility] 250 DO Work Phone: [phone] 10.3\S\10.3 below low threshold 11.8-15.4 -[facility] 250 DO Work Phone: [phone] 3.56\S\3.56 below low threshold 3.60-5.00 -[facility] 250 DO Work Phone: 8.6\S\8.6 Normal 3.8-11.6 [facility] Work Phone: 6.2\S\6.2 Normal 3.8-11.6 [facility] DO Work Phone: Nucleated erythrocytes [Pres ence] in Blood by Automated countOrdered By: Jonna Perry on 03-08-2023 Nucleated RBC Auto Ql (Bld) N/A [facility] Ovalocyte detectionOrdered B y: Jonna Perry on 03-08-2023 Ovalocytes LM Ql (Bld) Slight [facility] Platelet adequacy [Presence] in Blood by Light microscopyOrdered By: Jonna Perry on 03-08-2023 Platelets LM Ql (Bld) Normal Normal Fir [facility] Platelet mean volume Auto (B ld) [Entitic vol]Ordered By: Jonna Perry on 03-08-2023 Platelet mean volume (Bld) [Entitic vol] 9.0 fL 6.3-10.7 [facility] Platelet morphology finding [Identifier] in BloodOrdered By: Jonna Perry on 03-08-2023 Platelet morphology finding Nom (Bld) N/A [facility] Platelet poor plasma interna tional normalized ratio (INR) by coagulation assay (relatOrdered By: Jonna Perry on 03-08-2023 INR Coag (PPP) [Relative time] 1.1 {INR} [facility] Comment on above: INR Therapeutic Rang e [...] 03-08-2023 Platelets (Bld) [#/Vol] 276 10*3/uL 150-450 [facility] Platelets Large [Presence] i n Blood by Light microscopyOrdered By: Jonna Perry on 03-08-2023 Platelets Large LM Ql (Bld) Slight [facility] Poikilocytosis [Presence] in Blood by Light microscopyOrdered By: Jonna Perry on 03-08-2023 Poikilocytosis LM Ql (Bld) Slight [facility] Potassium [Moles/volume] in Serum or PlasmaOrdered By: Jonna Perry on 03-08-2023 Potassium [Moles/Vol] 5.1 mmol/L 3.5-5.1 [facility] RBC Auto (Bld) [#/Vol]Ordere d By: Jonna Perry on 03-08-2023 RBC (Bld) [#/Vol] 3.56 10*6/uL 3.60-5.00 [facility] RBC morphologyOrdered By: Jonna Perry on 03-08-2023 RBC morphology finding Nom (Bld) N/A [facility] Segmented neutrophils/100 WB C Manual cnt (Bld)Ordered By: Jonna Perry on 03-08-2023 Segmented neutrophils/100 WBC (Bld) 74 % 50-70 [facility] Serum or plasma anion gap de terminationOrdered By: Jonna Perry on 03-08-2023 Anion gap [Moles/Vol] 9.0 mmol/L 6.0-15.0 [facility] Serum or plasma high density lipoprotein (HDL) cholesterol measurementOrdered By: Jonna Perry on 03-08-2023 Cholesterol in HDL [Mass/Vol] 38 mg/dL 35-85 [facility] Comment on above: HDL CHOL ATP-III CLA SSIFICATION Cardiovascular RiskHDL > or equal to 60 mg/dL LOWHDL < 40 mg/dL HIGH Serum or plasma total choles terol/high density lipoprotein (HDL) cholesterol mass ratOrdered By: Jonna Perry on 03-08-2023 Cholesterol.total/Cho lesterol in HDL [Mass ratio] 4.0 {ratio} <5.0 [facility] Sodium [Moles/volume] in Ser um or PlasmaOrdered By: Jonna Perry on 03-08-2023 Sodium [Moles/Vol] 141 mmol/L 136-145 [facility] Triglyceride [Mass/volume] i n Serum or PlasmaOrdered By: Jonna Perry on 03-08-2023 Triglyceride [Mass/Vol] 67 mg/dL 0-149 [facility] Comment on above: TRIG ATP III CLASSIF ICATIONTRIG less than 150 mg/dL NormalTRIG 150-199 mg/dL Borderline highTRIG 200-500 mg/dL High TRIG greater than 500 mg/dL Very highStandard traceable to the Center for Disease Conrtrol and Prevention (CDC) test method. Urea nitrogen [Mass/volume] in Serum or PlasmaOrdered By: Jonna Perry on 03-08-2023 Urea nitrogen [Mass/Vol] 21 mg/dL 7-25 [facility] WBC Auto (Bld) [#/Vol]Ordere d By: Jonna Perry on 03-08-2023 WBC (Bld) [#/Vol] 8.6 10*3/uL 3.8-11.6 [facility] Office Visit (Cardiology)on 03-07-2023 Follow-up visit Diagnoses/Problems [...] Cardiac Catherization; Status:Active - Retrospective Authorization; Requested for:[id number]; Angina, class III, Hyperlipemia Start: Aspirin 81 [...] associated with accelerated hypertension, was admitted to [facility], diuresed approximately 14 pounds with diuretics. She [...] 1 coffee at hs Former smoker (V15.82) (Z87.016) 1997 No alcohol use No illicit drug [...] negative for complaint. Vitals Vital Signs Recorded: [id number] 10:14AMRecorded: [id number] 10:04AM [id number], RUE, [id number] (more content not included)... Normal [employer] Tobacco Screening.on 023 Adult depression screening assessment No [facility] 250 DO Work Phone: Fall risk assessment a) No falls within the last year [facility] 250 DO Work Phone: Tobacco use status CP b) No [facility] 250 DO Work Phone: CBC AUTO DIFFon 03-01-2023 BASO # 0.0 103/ul Normal 0.0-0.1 [facility] Comment on above: Performed By: #### C BC #### [facility] [address] [address] [address] Jose David Shanks Basophils/100 WBC (Bld) 0.5 % Normal 0.2-2.0 [facility] Comment on above: Performed By: #### C BC #### [facility] [address] [place] [address] Dr. Jose David Shanks EO # 0.1 103/ul Normal 0.0-0.7 [facility] Comment on above: Performed By: #### C BC #### [facility] [address] [place] [address] Dr. Jose David Shanks Eosinophils/100 WBC (Bld) 1.2 % Normal 0.9-7.0 [facility] Comment on above: Performed By: #### C BC #### [facility] [address] [place] [address] Dr. Jose David Shanks Erythrocyte distribution width (RBC) [Ratio] 13.2 % Normal 11.0-15.0 [facility] Comment on above: Performed By: #### C BC #### [facility] [address] [place] [address] Dr. Jose David Shanks Hematocrit (Bld) [Volume fraction] 33.9 % Critically low 36.0-48.0 [facility] Comment on above: Performed By: #### C BC #### [facility] [address] [place] [address] Dr. Jose David Shanks Hemoglobin (Bld) [Mass/Vol] 11.0 g/dL Critically low 12.0-16.0 [facility] Comment on above: Performed By: #### C BC #### [facility] [address] [place] [address] Dr. Jose David Shanks IG # 0.03 10e3/ul Normal 0.00-0.03 [facility] Comment on above: Performed By: #### C BC #### [facility] [address] [place] [address] Dr. Jose David Shanks IG % 0.5 % Normal 0.0-0.5 [facility] Comment on above: Performed By: #### C BC #### [facility] [address] [place] [address] Dr. Jose David Shanks LYMPH # 0.8 103/ul Critically low 1.2-3.8 [facility] Comment on above: Performed By: #### C BC #### [facility] [address] [place] [address] Dr. Jose David Shanks Lymphocytes/100 WBC (Bld) 13.7 % Critically low 20.5-60.0 [facility] Comment on above: Performed By: #### C BC #### [facility] [address] [place] [address] Dr. Jose David Shanks MANUAL DIFF REQ NO Normal [facility] Comment on above: Performed By: #### C BC #### [facility] [address] [place] [address] Dr. Jose David Shanks MCH (RBC) [Entitic mass] 28.9 pg Normal 26.7-34.0 [facility] Comment on above: Performed By: #### C BC #### [facility] [address] [place] [address] Dr. Jose David Shanks MCHC (RBC) [Mass/Vol] 32.4 g/dL Normal 29.9-35.2 [facility] Comment on above: Performed By: #### C BC #### [facility] [address] [place] [address] Dr. Jose David Shanks MCV (RBC) [Entitic vol] 89.0 fL Normal 81.0-99.0 [facility] Comment on above: Performed By: #### C BC #### [facility] [address] [place] [address] Dr. Jose David Shanks MONO # 0.5 103/ul Normal 0.3-0.8 [facility] Comment on above: Performed By: #### C BC #### [facility] [address] [place] [address] Dr. Jose David Shanks Monocytes/100 WBC (Bld) 8.2 % Normal 1.7-12.0 [facility] Comment on above: Performed By: #### C BC #### [facility] [address] [place] [address] Dr. Jose David Shanks NEUT # 4.3 103/ul Normal 1.4-6.5 [facility] Comment on above: Performed By: #### C BC #### [facility] [address] [place] [address] Dr. Jose David Shanks Neutrophils/100 WBC (Bld) 75.9 % Critically high 43.0-75.0 [facility] Comment on above: Performed By: #### C BC #### [facility] [address] [place] [address] Dr. Jose David Shanks Platelet mean volume (Bld) [Entitic vol] 10.1 fL Normal 9.5-13.5 [facility] Comment on above: Performed By: #### C BC #### [facility] [address] [place] [address] Dr. Jose David Shanks PLT 279 103/ul Normal 150-450 [facility] Comment on above: Performed By: #### C BC #### [facility] [address] [place] [address] Dr. Jose David Shanks RBC 3.81 106/ul Critically low 4.20-5.40 [facility] Comment on above: Performed By: #### C BC #### [facility] [address] [place] [address] Dr. Jose David Shanks WBC 5.7 103/ul Normal 4.0-11.0 [facility] Comment on above: Performed By: #### C BC #### [facility] [address] [place] [address] Dr. Jose David Shanks FERRITINon 03-01-2023 Ferritin [Mass/Vol] 180.0 ng/mL Normal 8.0-252.0 [facility] Comment on above: Performed By: #### C BC #### [facility] [address] [place] [address] Dr. Jose David Shanks IRON AND TIBCon 03-01-2023 % SATURATION 23.6 % Normal [facility] Comment on above: Performed By: #### C BC #### [facility] [address] [place] [address] Dr. Jose David Shanks Iron [Mass/Vol] 61.0 ug/dL Normal 50.0-170.0 [facility] Comment on above: Performed By: #### C BC #### [facility] [address] [address] [address] Jose David Shanks TIBC DIRECT 258.0 ug/dL Normal 250.0-450.0 [facility] Comment on above: Performed By: #### C BC #### [facility] [id number] Jose David Shanks NM STRESS/REST MULTIon 03-01 NM STRESS/REST MULTI Patient: GERMANIA JOAQUIN Exam Date: 03/01/2023 : 1940 Gender:F Ordering : DR NATHAN HATHAWAY D.O. Admission #: [id number] Family : Order #: [id number] CLICK HERE TO VIEW EXAM RADIOLOGY REPORT [...] STUDY: PERFUSION DEFECT: LOCATION: Mid-anterior. Apical anterior. [place]. SIZE: Medium (3-4 segments). SEVERITY: Moderate. TYPE: [...] MD on 03/01/2023 at 14:54 Normal [facility] PROF CHEM 8 (BAS METB)on Anion gap [Moles/Vol] 8.8 mmol/L Normal [facility] Comment on above: Performed By: #### L ACT #### [facility] [address] [address] [address] Jose David Shanks Calcium [Mass/Vol] 9.0 mg/dL Normal 8.5-10.1 [facility] Comment on above: Performed By: #### L ACT #### [facility] [address] [address] [address] Jose David Shanks Chloride [Moles/Vol] 106 mmol/L Normal 98-107 [facility] Comment on above: Performed By: #### L ACT #### [facility] [address] [address] [address] Jose David Shanks CO2 [Moles/Vol] 31.0 mmol/L Normal 21.0-32.0 [facility] Comment on above: Performed By: #### L ACT #### [facility] [address] [address] [address] Jose David Shanks Creatinine [Mass/Vol] 1.18 mg/dL Critically high 0.55-1.02 [facility] Comment on above: Performed By: #### L ACT #### [facility] [address] [address] [address] Jose David Shanks EGFR-AF KITTITIAN 53 mL/min/1.73m2 Critically low >=60 [facility] Comment on above: Performed By: #### L ACT #### [facility] [address] [address] [address] Jose David Shanks EGFR-NON AF KITTITIAN 44 mL/min/1.73m2 Critically low >=60 [facility] Comment on above: Performed By: #### L ACT #### [facility] [address] [address] [address] Jose David Shanks Glucose [Mass/Vol] 98 mg/dL Normal 74-106 [facility] Comment on above: Performed By: #### L ACT #### [facility] [address] [address] [address] Jose David Shanks Potassium [Moles/Vol] 4.8 mmol/L Normal 3.5-5.1 [facility] Comment on above: Performed By: #### L ACT #### [facility] [address] [address] [address] Jose David Shanks Sodium [Moles/Vol] 141 mmol/L Normal 136-145 [facility] Comment on above: Performed By: #### L ACT #### [facility] [address] [address] [address] Jose David Shanks Urea nitrogen [Mass/Vol] 16.0 mg/dL Normal 7.0-18.0 [facility] Comment on above: Performed By: #### L ACT #### [facility] [address] [place] [address] Dr. Jose David Shanks Urea nitrogen/Creatinine [Mass ratio] 13.6 mg/mg Normal [facility] Comment on above: Performed By: #### L ACT #### [facility] [address] [place] [address] Dr. Jose David Shanks RETICULOCYTEon 03-01-2023 RETIC 1.51 % Normal 0.60-3.10 [facility] Comment on above: Performed By: #### C BC #### [facility] [address] [place] [address] Dr. Jose David Shanks VIT B12 AND FOLATEon 023 Cobalamin (Vitamin B12) [Mass/Vol] 1406.0 pg/mL Critically high 193.0-986.0 [facility] Comment on above: Performed By: #### C BC #### [facility] [address] [place] [address] Dr. Jose David Shanks FOLATE 19.00 ng/mL Normal 8.60-58.90 [facility] Comment on above: Performed By: #### C BC #### [facility] [address] [place] [address] Dr. Jose David Shanks CBC AUTO DIFFon 02-09-2023 BASO # 0.0 103/ul Normal 0.0-0.1 [facility] Comment on above: Performed By: #### C BC #### [facility] [address] [address] [address] Jose David Shanks Basophils/100 WBC (Bld) 0.6 % Normal 0.2-2.0 [facility] Comment on above: Performed By: #### C BC #### [facility] [address] [address] [address] Jose David Shanks EO # 0.1 103/ul Normal 0.0-0.7 [facility] Comment on above: Performed By: #### C BC #### [facility] [address] [address] [address] Jose David Shanks Eosinophils/100 WBC (Bld) 2.7 % Normal 0.9-7.0 [facility] Comment on above: Performed By: #### C BC #### [facility] [address] [place] [address] Dr. Jose David Shanks Erythrocyte distribution width (RBC) [Ratio] 13.5 % Normal 11.0-15.0 [facility] Comment on above: Performed By: #### C BC #### [facility] [address] [place] [address] Dr. Jose David Shanks Hematocrit (Bld) [Volume fraction] 30.0 % Critically low 36.0-48.0 [facility] Comment on above: Performed By: #### C BC #### [facility] [address] [place] [address] Dr. Jose David Shanks Hemoglobin (Bld) [Mass/Vol] 10.0 g/dL Critically low 12.0-16.0 [facility] Comment on above: Performed By: #### C BC #### [facility] [address] [place] [address] Dr. Jose David Shanks IG # 0.02 10e3/ul Normal 0.00-0.03 [facility] Comment on above: Performed By: #### C BC #### [facility] [address] [place] [address] Dr. Jose David Shanks IG % 0.4 % Normal 0.0-0.5 [facility] Comment on above: Performed By: #### C BC #### [facility] [address] [address] [address] Jose David Shanks LYMPH # 0.9 103/ul Critically low 1.2-3.8 [facility] Comment on above: Performed By: #### C BC #### [facility] [address] [place] [address] Dr. Jose David Shanks Lymphocytes/100 WBC (Bld) 19.3 % Critically low 20.5-60.0 [facility] Comment on above: Performed By: #### C BC #### [facility] [address] [place] [address] Dr. Jose David Shanks MANUAL DIFF REQ NO Normal [facility] Comment on above: Performed By: #### C BC #### [facility] [address] [place] [address] Dr. Jose David Shanks MCH (RBC) [Entitic mass] 29.3 pg Normal 26.7-34.0 [facility] Comment on above: Performed By: #### C BC #### [facility] [address] [place] [address] Dr. Jose David Shanks MCHC (RBC) [Mass/Vol] 33.3 g/dL Normal 29.9-35.2 [facility] Comment on above: Performed By: #### C BC #### [facility] [address] [place] [address] Dr. Jose David Shanks MCV (RBC) [Entitic vol] 88.0 fL Normal 81.0-99.0 [facility] Comment on above: Performed By: #### C BC #### [facility] [address] [place] [address] Dr. Jose David Shanks MONO # 0.4 103/ul Normal 0.3-0.8 [facility] Comment on above: Performed By: #### C BC #### [facility] [address] [place] [address] Dr. Jose David Shanks Monocytes/100 WBC (Bld) 8.3 % Normal 1.7-12.0 [facility] Comment on above: Performed By: #### C BC #### [facility] [address] [place] [address] Dr. Jose David Shanks NEUT # 3.3 103/ul Normal 1.4-6.5 [facility] Comment on above: Performed By: #### C BC #### [facility] [address] [place] [address] Dr. Jose David Shanks Neutrophils/100 WBC (Bld) 68.7 % Normal 43.0-75.0 [facility] Comment on above: Performed By: #### C BC #### [facility] [address] [place] [address] Dr. Jose David Shanks Platelet mean volume (Bld) [Entitic vol] 9.9 fL Normal 9.5-13.5 [facility] Comment on above: Performed By: #### C BC #### [facility] [address] [place] [address] Dr. Jose David Shanks PLT 259 103/ul Normal 150-450 [facility] Comment on above: Performed By: #### C BC #### [facility] [address] [place] [address] Dr. Jose David Shanks RBC 3.41 106/ul Critically low 4.20-5.40 [facility] Comment on above: Performed By: #### C BC #### [facility] [address] [place] [address] Dr. Jose David Shanks WBC 4.8 103/ul Normal 4.0-11.0 [facility] Comment on above: Performed By: #### C BC #### [facility] [address] [place] [address] Dr. Jose David Shanks PROF CHEM 8 (BAS METB)on Anion gap [Moles/Vol] 11.7 mmol/L Normal [facility] Comment on above: Performed By: #### L ACT #### [facility] [address] [place] [address] Dr. Jose David Shanks Calcium [Mass/Vol] 8.6 mg/dL Normal 8.5-10.1 [facility] Comment on above: Performed By: #### L ACT #### [facility] [address] [address] [address] Jose David Shanks Chloride [Moles/Vol] 107 mmol/L Normal 98-107 [facility] Comment on above: Performed By: #### L ACT #### [facility] [address] [address] [address] Jose David Shanks CO2 [Moles/Vol] 30.9 mmol/L Normal 21.0-32.0 [facility] Comment on above: Performed By: #### L ACT #### [facility] [address] [address] [address] Jose David Shanks Creatinine [Mass/Vol] 1.04 mg/dL Critically high 0.55-1.02 [facility] Comment on above: Performed By: #### L ACT #### [facility] [address] [address] [address] Jose David Shanks EGFR-AF KITTITIAN >60 Normal >=60 [facility] Comment on above: Performed By: #### L ACT #### [facility] [address] [address] [address] Jose David Shanks EGFR-NON AF KITTITIAN 51 mL/min/1.73m2 Critically low >=60 [facility] Comment on above: Performed By: #### L ACT #### [facility] [address] [address] [address] Jose David Shanks Glucose [Mass/Vol] 97 mg/dL Normal 74-106 [facility] Comment on above: Performed By: #### L ACT #### [facility] [address] [address] [address] Jose David Shanks Potassium [Moles/Vol] 3.6 mmol/L Normal 3.5-5.1 [facility] Comment on above: Performed By: #### L ACT #### [facility] [address] [address] [address] Jose David Shanks Sodium [Moles/Vol] 146 mmol/L Critically high 136-145 [facility] Comment on above: Performed By: #### L ACT #### [facility] [address] [address] [address] Jose David Shanks Urea nitrogen [Mass/Vol] 17.0 mg/dL Normal 7.0-18.0 [facility] Comment on above: Performed By: #### L ACT #### [facility] [address] [place] [address] Dr. Jose David Shanks Urea nitrogen/Creatinine [Mass ratio] 16.3 mg/mg Normal [facility] Comment on above: Performed By: #### L ACT #### [facility] [address] [place] [address] Dr. Jose David Shanks XR CHEST 2 [...] EDWARD MENA Date: 2023-02-09 15:56 Normal [facility] BNPon 02-08-2023 Natriuretic peptide B (Bld) [Mass/Vol] 1007.0 pg/mL Normal <=1,800.0 [facility] Comment on above: Performed By: #### B GRINDER SET UP OPERATOR SURFACE #### [facility] [address] [place] [address] Dr. Jose David Shanks CARDIAC TALI 3-6on 3 CK [Catalytic activity/Vol] 29 U/L Normal 26-192 [facility] Comment on above: Performed By: #### C MREP #### [facility] [address] [place] [address] Dr. Jose David Shanks CK.MB [Mass/Vol] 0.90 ng/mL Normal <=3.60 [facility] Comment on above: Performed By: #### C MREP #### [facility] [address] [address] [address] Jose David Shanks HSTROP 69.4 pg/mL Critically high 4.0-51.3 [facility] Comment on above: Result Comment: CUT- OFF POINTS HAVE BEEN ESTABLISHED BASED ON THE FOURTH UNIVERSAL DEFINITIONS OF MYOCARDIAL INFARCTION. THE UPPER REFERENCE LIMIT (URL) OF TROPONIN, DEFINED THE 99TH PERCENTILE OF cTnI DISTRIBUTION IN A REFERENCE POPULATION, HAS BEEN CONFIRMED THE DECISION THRESHOLD FOR NM DIAGNOSIS. Performed By: #### C MREP #### [facility] [address] [address] [address] Jose David Shanks CK [Catalytic activity/Vol] 23 U/L Critically low 26-192 [facility] Comment on above: Performed By: #### C MREP #### [facility] [address] [place] [address] Dr. Jose David Shanks CK.MB [Mass/Vol] ng/mL Normal <=3.60 [facility] Comment on above: Performed By: #### C MREP #### [facility] [address] [place] [address] Dr. Jose David Shanks HSTROP 72.0 pg/mL Critically high 4.0-51.3 [facility] Comment on above: Result Comment: CUT- OFF POINTS HAVE BEEN ESTABLISHED BASED ON THE FOURTH UNIVERSAL DEFINITIONS OF MYOCARDIAL INFARCTION. THE UPPER REFERENCE LIMIT (URL) OF TROPONIN, DEFINED THE 99TH PERCENTILE OF cTnI DISTRIBUTION IN A REFERENCE POPULATION, HAS BEEN CONFIRMED THE DECISION THRESHOLD FOR NM DIAGNOSIS. Performed By: #### C MREP #### [facility] [address] [address] [address] Jose David Shanks CARDIAC TALI ADMITon 023 CK [Catalytic activity/Vol] 31 U/L Normal 26-192 [facility] Comment on above: Performed By: #### C MADM, BMP #### [facility] [address] [address] [address] Jose David Shanks CK.MB [Mass/Vol] ng/mL Normal <=3.60 [facility] Comment on above: Performed By: #### C MADM, BMP #### [facility] [address] [place] [address] Dr. Jose David Shanks HSTROP 26.3 pg/mL Normal 4.0-51.3 [facility] Comment on above: Result Comment: CUT- OFF POINTS HAVE BEEN ESTABLISHED BASED ON THE FOURTH UNIVERSAL DEFINITIONS OF MYOCARDIAL INFARCTION. THE UPPER REFERENCE LIMIT (URL) OF TROPONIN, DEFINED THE 99TH PERCENTILE OF cTnI DISTRIBUTION IN A REFERENCE POPULATION, HAS BEEN CONFIRMED THE DECISION THRESHOLD FOR NM DIAGNOSIS. Performed By: #### C MADM, BMP #### [facility] [address] [place] [address] Dr. Jose David Shanks MAMI 52 ng/mL Normal 9-82 [facility] Comment on above: Performed By: #### C ABHIJITM, BMP #### [facility] [address] [place] [address] Dr. Jose David Shanks CBC AUTO DIFFon 02-08-2023 BASO # 0.0 103/ul Normal 0.0-0.1 [facility] Comment on above: Performed By: #### L ACT #### [facility] [address] [place] [address] Dr. Jose David Shanks Basophils/100 WBC (Bld) 0.3 % Normal 0.2-2.0 [facility] Comment on above: Performed By: #### L ACT #### [facility] [address] [place] [address] Dr. Jose David Shanks EO # 0.1 103/ul Normal 0.0-0.7 [facility] Comment on above: Performed By: #### L ACT #### [facility] [address] [place] [address] Dr. Jose David Shanks Eosinophils/100 WBC (Bld) 0.5 % Critically low 0.9-7.0 [facility] Comment on above: Performed By: #### L ACT #### [facility] [address] [place] [address] Dr. Jose David Shanks Erythrocyte distribution width (RBC) [Ratio] 13.4 % Normal 11.0-15.0 [facility] Comment on above: Performed By: #### L ACT #### [facility] [address] [address] [address] Jose David Shanks Hematocrit (Bld) [Volume fraction] 33.0 % Critically low 36.0-48.0 [facility] Comment on above: Performed By: #### L ACT #### [facility] [address] [address] [address] Jose David Shanks Hemoglobin (Bld) [Mass/Vol] 11.1 g/dL Critically low 12.0-16.0 [facility] Comment on above: Performed By: #### L ACT #### [facility] [address] [address] [address] Jose David Shanks IG # 0.06 10e3/ul Critically high 0.00-0.03 [facility] Comment on above: Performed By: #### L ACT #### [facility] [address] [place] [address] Dr. Jose David Shanks IG % 0.5 % Normal 0.0-0.5 [facility] Comment on above: Performed By: #### L ACT #### [facility] [address] [address] [address] Jose David Shanks LYMPH # 0.8 103/ul Critically low 1.2-3.8 [facility] Comment on above: Performed By: #### L ACT #### [facility] [address] [address] [address] Jose David Shanks Lymphocytes/100 WBC (Bld) 7.0 % Critically low 20.5-60.0 [facility] Comment on above: Performed By: #### L ACT #### [facility] [address] [address] [address] Jose David Shanks MANUAL DIFF REQ NO Normal [facility] Comment on above: Performed By: #### L ACT #### [facility] [address] [address] [address] Jose David Shanks MCH (RBC) [Entitic mass] 29.6 pg Normal 26.7-34.0 [facility] Comment on above: Performed By: #### L ACT #### [facility] [address] [address] [address] Jose David Shanks MCHC (RBC) [Mass/Vol] 33.6 g/dL Normal 29.9-35.2 [facility] Comment on above: Performed By: #### L ACT #### [facility] [address] [address] [address] Jose David Shanks MCV (RBC) [Entitic vol] 88.0 fL Normal 81.0-99.0 [facility] Comment on above: Performed By: #### L ACT #### [facility] [address] [address] [address] Jose David Shanks MONO # 0.6 103/ul Normal 0.3-0.8 [facility] Comment on above: Performed By: #### L ACT #### [facility] [address] [address] [address] Jose David Shanks Monocytes/100 WBC (Bld) 5.4 % Normal 1.7-12.0 [facility] Comment on above: Performed By: #### L ACT #### [facility] [address] [address] [address] Jose David Shanks NEUT # 9.9 103/ul Critically high 1.4-6.5 [facility] Comment on above: Performed By: #### L ACT #### [facility] [address] [address] [address] Jose David Shanks Neutrophils/100 WBC (Bld) 86.3 % Critically high 43.0-75.0 [facility] Comment on above: Performed By: #### L ACT #### [facility] [id number] Jose David Shanks Platelet mean volume (Bld) [Entitic vol] 10.1 fL Normal 9.5-13.5 [facility] Comment on above: Performed By: #### L ACT #### [facility] [address] [address] [address] Jose David Shanks PLT 333 103/ul Normal 150-450 [facility] Comment on above: Performed By: #### L ACT #### [facility] [address] [address] [address] Jose David Shanks RBC 3.75 106/ul Critically low 4.20-5.40 [facility] Comment on above: Performed By: #### L ACT #### [facility] [address] [address] [address] Jose David Shanks WBC 11.5 103/ul Critically high 4.0-11.0 [facility] Comment on above: Performed By: #### L ACT #### [facility] [address] [address] [address] Jose David Shanks CULTURE BLOODon 02-08-2023 Microscopic examination of blood, culture Culture Observations: NO GROWTH AT 5 DAYS. Normal [facility] Comment on above: Performed By: #### L ACT #### [facility] [address] [place] [address] Dr. Jose David Shanks Microscopic examination of blood, culture Culture Observations: NO GROWTH AT 5 DAYS. Normal [facility] Comment on above: Performed By: #### L ACT #### [facility] [address] [place] [address] Dr. Jose David Shanks ECHOCARDIO M/2D COMPLETEon 0 02-08-2023 ECHOCARDIO M/2D COMPLETE Patient: LASHAUN JOAQUIN Exam Date: 02/08/2023 : 1940 Gender:F Ordering : DR KOFI SCOTT . Admission #: [id number] Family : DR NATHAN HATHAWAY D.O. Order #: [id number] CLICK HERE TO VIEW EXAM ECHOCARDIOGRAM REPORT [...] Payne M.D. on 02/09/2023 at 19:11 Normal [facility] LACTATE/LACTIC ACIDon 2022 Lactate [Moles/Vol] 1.4 mmol/L Normal 0.4-2.0 [facility] Comment on above: Performed By: #### L ACT #### [facility] [address] [address] [address] Jose David Shanks Lactate [Moles/Vol] 1.4 mmol/L Normal 0.4-2.0 [facility] Comment on above: Performed By: #### L ACT #### [facility] [address] [address] [address] Jose David Shanks PROF CHEM 8 (BAS METB)on Anion gap [Moles/Vol] 11.9 mmol/L Normal [facility] Comment on above: Performed By: #### C MADM, BMP #### [facility] [address] [address] [address] Jose David Shanks Calcium [Mass/Vol] 9.0 mg/dL Normal 8.5-10.1 [facility] Comment on above: Performed By: #### C MADM, BMP #### [facility] [address] [address] [address] Jose David Shanks Chloride [Moles/Vol] 105 mmol/L Normal 98-107 [facility] Comment on above: Performed By: #### C MADM, BMP #### [facility] [address] [address] [address] Jose David Shanks CO2 [Moles/Vol] 28.2 mmol/L Normal 21.0-32.0 [facility] Comment on above: Performed By: #### C MADM, BMP #### [facility] [address] [address] [address] Jose David Shanks Creatinine [Mass/Vol] 0.99 mg/dL Normal 0.55-1.02 [facility] Comment on above: Performed By: #### C MADM, BMP #### [facility] [address] [place] [address] Dr. Jose David Shanks EGFR-AF KITTITIAN >60 Normal >=60 [facility] Comment on above: Performed By: #### C MADM, BMP #### [facility] [address] [place] [address] Dr. Jose David Shanks EGFR-NON AF KITTITIAN 54 mL/min/1.73m2 Critically low >=60 [facility] Comment on above: Performed By: #### C MADM, BMP #### [facility] [address] [place] [address] Dr. Jose David Shanks Glucose [Mass/Vol] 123 mg/dL Critically high 74-106 T [facility] Comment on above: Performed By: #### C MADM, BMP #### [facility] [address] [place] [address] Dr. Jose David Shanks Potassium [Moles/Vol] 4.1 mmol/L Normal 3.5-5.1 [facility] Comment on above: Performed By: #### C MADM, BMP #### [facility] [address] [place] [address] Dr. Jose David Shanks Sodium [Moles/Vol] 141 mmol/L Normal 136-145 [facility] Comment on above: Performed By: #### C MADM, BMP #### [facility] [address] [address] [address] Jose Davdi Shanks Urea nitrogen [Mass/Vol] 14.0 mg/dL Normal 7.0-18.0 [facility] Comment on above: Performed By: #### C MADM, BMP #### [facility] [address] [place] [address] Dr. Jose David Shanks Urea nitrogen/Creatinine [Mass ratio] 14.1 mg/mg Normal [facility] Comment on above: Performed By: #### C MADM, BMP #### [facility] [address] [place] [address] Dr. Jose David Shanks RESPIRATORY PANEL PLUSon Adenovirus Not detected Normal NOT DETECTED [facility] Comment on above: Performed By: #### R SPLUS #### [facility] [address] [place] [address] Dr. Jose David Mccormack Parapertusis Not detected Normal NOT DETECTED [facility] Comment on above: Performed By: #### R SPLUS #### [facility] [address] [place] [address] Dr. Jose David Mccormack Pertussis Not detected Normal NOT DETECTED [facility] Comment on above: Performed By: #### R SPLUS #### [facility] [address] [place] [address] Dr. Jose David Shanks Chlamydia Pneumoniae Not detected Normal NOT DETECTED [facility] Comment on above: Performed By: #### R SPLUS #### [facility] [address] [place] [address] Dr. Jose David Shanks Coronavirus 229E Not detected Normal NOT DETECTED [facility] Comment on above: Performed By: #### R SPLUS #### [facility] [address] [place] [address] Dr. Jose David Shanks Coronavirus HKU1 Not detected Normal NOT DETECTED [facility] Comment on above: Performed By: #### R SPLUS #### [facility] [address] [place] [address] Dr. Jose David Shanks Coronavirus NL63 Not detected Normal NOT DETECTED [facility] Comment on above: Performed By: #### R SPLUS #### [facility] [address] [place] [address] Dr. Jose David Shanks Coronavirus OC43 Not detected Normal NOT DETECTED [facility] Comment on above: Performed By: #### R SPLUS #### [facility] [address] [place] [address] Dr. Jose David Shanks Influenza A H1 Not detected Normal NOT DETECTED [facility] Comment on above: Performed By: #### R SPLUS #### [facility] [address] [place] [address] Dr. Jose David Shanks Influenza A H1 2009 Not detected Normal NOT DETECTED [facility] Comment on above: Performed By: #### R SPLUS #### [facility] [address] [place] [address] Dr. Jose David Shanks Influenza A H3 Not detected Normal NOT DETECTED [facility] Comment on above: Performed By: #### R SPLUS #### [facility] [address] [place] [address] Dr. Jose David Shanks Influenza B Not detected Normal NOT DETECTED [facility] Comment on above: Performed By: #### R SPLUS #### [facility] [address] [place] [address] Dr. Jose David Shanks Metapneumovirus Not detected Normal NOT DETECTED [facility] Comment on above: Performed By: #### R SPLUS #### [facility] [address] [place] [address] Dr. Jose David Shanks Mycoplas. Pneumoniae Not detected Normal NOT DETECTED [facility] Comment on above: Performed By: #### R SPLUS #### [facility] [address] [place] [address] Dr. Jose David Shanks Parainfluenza 1 Not detected Normal NOT DETECTED [facility] Comment on above: Performed By: #### R SPLUS #### [facility] [address] [place] [address] Dr. Jose David Shanks Parainfluenza 2 Not detected Normal NOT DETECTED [facility] Comment on above: Performed By: #### R SPLUS #### [facility] [address] [place] [address] Dr. Jose David Shanks Parainfluenza 3 Not detected Normal NOT DETECTED [facility] Comment on above: Performed By: #### R SPLUS #### [facility] [address] [place] [address] Dr. Jose David Shanks Parainfluenza 4 Not detected Normal NOT DETECTED [facility] Comment on above: Performed By: #### R SPLUS #### [facility] [address] [place] [address] Dr. Jose David Shanks Rhino/Enterovirus Not detected Normal NOT DETECTED [facility] Comment on above: Performed By: #### R SPLUS #### [facility] [address] [place] [address] Dr. Jose David Shanks RP2 Header 1 RESPIRATORY PANEL: VIRUSES Normal [facility] Comment on above: Performed By: #### R SPLUS #### [facility] [address] [place] [address] Dr. Jose David Shanks RP2 Header 2 RESPIRATORY PANEL: BACTERIA Normal [facility] Comment on above: Performed By: #### R SPLUS #### [facility] [address] [place] [address] Dr. Jose David Shanks RSV Not detected Normal NOT DETECTED [facility] Comment on above: Performed By: #### R SPLUS #### [facility] [address] [place] [address] Dr. Jose David Shanks SARS-CoV-2 (COVID-19) RNA ZABRINA+probe Ql (Unsp spec) Not detected Normal NOT DETECTED [facility] Comment on above: Performed By: #### R SPLUS #### [facility] [address] [place] [address] Dr. Jose David Shanks XR CHEST 1 [...] by: Petra SAHU Date: 2023-02-08 05:21 Normal [facility] MG MAMM SCREEN 3D SCARLETT CADon 01-08-2023 MG MAMM SCREEN 3D SCARLETT CAD Patient: LASHAUN JOAQUIN Exam Date: 01/08/2023 : 1940 Gender:F Ordering : DR NATHAN HATHAWAY D.O. Admission #: [id number] Family : Order #: [id number] CLICK HERE TO VIEW EXAM RADIOLOGY REPORT [...] lung cancer at age 62. LOCATION: [facility] BREAST COMPOSITION: Extremely dense, which lowers the [...] Dominguez MD on 01/08/2023 at 11:24 Normal [facility] CNOVSPon 12-04-2022 CNOVSP Visit (SP) Office ([facility]) ----- LASHAUN JOAQUIN ([id number]) 1940 F Date Time Provider Department 12/04/22 [...] lower extremiti (more content not included)... Normal [facility] CBC W Auto Differential pane l (Bld)on 11-27-2022 Basophils (Bld) [#/Vol] 0.04 10*3/uL Normal <0.11 [facility] Comment on above: Order Comment: Speci men Type: BLOOD SPECIMEN Ordering Facility: [facility] Address: [address] [address] Performed By: #### 5 7021-8 #### [facility] CLIA [id number] [address] [place] [address] Basophils/100 WBC (Bld) 0.8 % Normal [facility] Comment on above: Order Comment: Speci men Type: BLOOD SPECIMEN Ordering Facility: [facility] Address: [address] [address] Performed By: #### 5 7021-8 #### [facility] CLIA [id number] [address] [place] [address] Differential cell count method Nom (Bld) Auto Normal [facility] Comment on above: Order Comment: Speci men Type: BLOOD SPECIMEN Ordering Facility: [facility] Address: [address] [address] Performed By: #### 5 7021-8 #### [facility] CLIA [id number] [address] [place] [address] Eosinophils (Bld) [#/Vol] 0.10 10*3/uL Normal <0.46 [facility] Comment on above: Order Comment: Speci men Type: BLOOD SPECIMEN Ordering Facility: [facility] Address: [address] [address] Performed By: #### 5 7021-8 #### [facility] CLIA [id number] [address] [place] [address] Eosinophils/100 WBC (Bld) 2.0 % Normal [facility] Comment on above: Order Comment: Speci men Type: BLOOD SPECIMEN Ordering Facility: [facility] Address: [address] [address] Performed By: #### 5 7021-8 #### [facility] CLIA [id number] [address] [place] [address] Erythrocyte distribution width (RBC) [Ratio] 13.2 % Normal 11.5-15.0 [facility] Comment on above: Order Comment: Speci men Type: BLOOD SPECIMEN Ordering Facility: [facility] Address: [address] [address] Performed By: #### 5 7021-8 #### [facility] CLIA [id number] [address] [place] [address] Hematocrit (Bld) [Volume fraction] 33.9 % Low 36.0-46.0 [facility] Comment on above: Order Comment: Speci men Type: BLOOD SPECIMEN Ordering Facility: [facility] Address: [address] [address] Performed By: #### 5 7021-8 #### [facility] CLIA [id number] [address] [place] [address] Hemoglobin (Bld) [Mass/Vol] 10.9 g/dL Low 11.5-15.5 [facility] Comment on above: Order Comment: Speci men Type: BLOOD SPECIMEN Ordering Facility: [facility] Address: [address] [address] Performed By: #### 5 7021-8 #### [facility] CLIA [id number] [address] [place] [address] Immature granulocytes (Bld) [#/Vol] 0.04 10*3/uL Normal <0.10 [facility] Comment on above: Order Comment: Speci men Type: BLOOD SPECIMEN Ordering Facility: [facility] Address: [address] [address] Performed By: #### 5 7021-8 #### [facility] CLIA [id number] [address] [place] [address] Immature granulocytes/100 WBC (Bld) 0.8 % Normal [facility] Comment on above: Order Comment: Speci men Type: BLOOD SPECIMEN Ordering Facility: [facility] Address: [address] [address] Performed By: #### 5 7021-8 #### [facility] CLIA [id number] [address] [place] [address] Lymphocytes (Bld) [#/Vol] 0.88 10*3/uL Low 1.00-4.00 [facility] Comment on above: Order Comment: Speci men Type: BLOOD SPECIMEN Ordering Facility: [facility] Address: [address] [place] [address] Performed By: #### 5 7021-8 #### [facility] CLIA [id number] [address] [place] [address] Lymphocytes/100 WBC (Bld) 17.6 % Normal [facility] Comment on above: Order Comment: Speci men Type: BLOOD SPECIMEN Ordering Facility: [facility] Address: [address] [place] [address] Performed By: #### 5 7021-8 #### [facility] CLIA [id number] [address] [place] [address]20 MCH (RBC) [Entitic mass] 29.0 pg Normal 26.0-34.0 [facility] Comment on above: Order Comment: Speci men Type: BLOOD SPECIMEN Ordering Facility: [facility] Address: [address] [place] [address] Performed By: #### 5 7021-8 #### [facility] CLIA [id number] [address] [place] [address] MCHC (RBC) [Mass/Vol] 32.2 g/dL Normal 30.5-36.0 [facility] Comment on above: Order Comment: Speci men Type: BLOOD SPECIMEN Ordering Facility: [facility] Address: [address] [address] Performed By: #### 5 7021-8 #### [facility] CLIA [id number] [address] [place] [address]704 MCV (RBC) [Entitic vol] 90.2 fL Normal 80.0-100.0 [facility] Comment on above: Order Comment: Speci men Type: BLOOD SPECIMEN Ordering Facility: [facility] Address: [address] [address] Performed By: #### 5 7021-8 #### [facility] CLIA [id number] [address] [place] [address] Monocytes (Bld) [#/Vol] 0.56 10*3/uL Normal <0.87 [facility] Comment on above: Order Comment: Speci men Type: BLOOD SPECIMEN Ordering Facility: [facility] Address: [address] [address] Performed By: #### 5 7021-8 #### [facility] CLIA [id number] [address] [place] [address] Monocytes/100 WBC (Bld) 11.2 % Normal [facility] Comment on above: Order Comment: Speci men Type: BLOOD SPECIMEN Ordering Facility: [facility] Address: [address] [place] [address] Performed By: #### 5 7021-8 #### [facility] CLIA [id number] [address] [place] [address] Neutrophils (Bld) [#/Vol] 3.39 10*3/uL Normal 1.45-7.50 [facility] Comment on above: Order Comment: Speci men Type: BLOOD SPECIMEN Ordering Facility: [facility] Address: [address] [place] [address] Performed By: #### 5 7021-8 #### [facility] CLIA [id number] [address] [place] [address]178 Neutrophils/100 WBC (Bld) 67.6 % Normal [facility] Comment on above: Order Comment: Speci men Type: BLOOD SPECIMEN Ordering Facility: [facility] Address: [address] Performed By: #### 5 7021-8 #### [facility] CLIA [id number] [address] [place] [address] Nucleated RBC (Bld) [#/Vol] 10*3/uL Normal <0.01 [facility] Comment on above: Order Comment: Speci men Type: BLOOD SPECIMEN Ordering Facility: [facility] Address: [address] Performed By: #### 5 7021-8 #### [facility] CLIA [id number] [address] [place] [address]24 Nucleated RBC/100 WBC (Bld) [Ratio] 0.0 /100 WBC Normal [facility] Comment on above: Order Comment: Speci men Type: BLOOD SPECIMEN Ordering Facility: [facility] Address: [address] Performed By: #### 5 7021-8 #### [facility] CLIA [id number] [address] [place] [address]34 Platelet mean volume (Bld) [Entitic vol] 9.8 fL Normal 9.0-12.7 [facility] Comment on above: Order Comment: Speci men Type: BLOOD SPECIMEN Ordering Facility: [facility] Address: [address] Performed By: #### 5 7021-8 #### [facility] CLIA [id number] [address] [place] [address]143 Platelets (Bld) [#/Vol] 278 10*3/uL Normal 150-400 [facility] Comment on above: Order Comment: Speci men Type: BLOOD SPECIMEN Ordering Facility: [facility] Address: [address] Performed By: #### 5 7021-8 #### [facility] CLIA [id number] [address] [place] [address]93 RBC (Bld) [#/Vol] 3.76 10*6/uL Low 3.90-5.20 [facility] Comment on above: Order Comment: Speci men Type: BLOOD SPECIMEN Ordering Facility: [facility] Address: [address] [place] [address] Performed By: #### 5 7021-8 #### [facility] CLIA [id number] [address] [place] [address]99 WBC (Bld) [#/Vol] 5.01 10*3/uL Normal 3.70-11.00 [facility] Comment on above: Order Comment: Speci men Type: BLOOD SPECIMEN Ordering Facility: [facility] Address: [address] [place] [address] Performed By: #### 5 7021-8 #### [facility] CLIA [id number] [address] [place] [address]190 Comprehensive metabolic 2000 panelon 11-27-2022 Albumin [Mass/Vol] 3.9 g/dL Normal 3.9-4.9 [facility] Comment on above: Order Comment: Speci men Type: BLOOD SPECIMEN Ordering Facility: [facility] Address: [address] [place] [address] Performed By: #### 2 4323-8 #### [facility] CLIA [id number] [address] [place] [address] 37771 ALP [Catalytic activity/Vol] 48 U/L Normal 34-123 [facility] Comment on above: Order Comment: Speci men Type: BLOOD SPECIMEN Ordering Facility: [facility] Address: [address] [place] [address] Performed By: #### 2 4323-8 #### [facility] CLIA [id number] [address] [place] [address] 70658 ALT [Catalytic activity/Vol] 10 U/L Normal 7-38 [facility] Comment on above: Order Comment: Speci men Type: BLOOD SPECIMEN Ordering Facility: [facility] Address: [address] [address] Performed By: #### 2 4323-8 #### [facility] CLIA [id number] [address] [place] [address] 50260 Anion gap [Moles/Vol] 8 mmol/L Low 9-18 [facility] Comment on above: Order Comment: Speci men Type: BLOOD SPECIMEN Ordering Facility: [facility] Address: [address] [address] Performed By: #### 2 4323-8 #### [facility] CLIA [id number] [address] [place] [address] 65841 AST [Catalytic activity/Vol] 14 U/L Normal 13-35 [facility] Comment on above: Order Comment: Speci men Type: BLOOD SPECIMEN Ordering Facility: [facility] Address: [address] [address] Performed By: #### 2 4323-8 #### [facility] CLIA [id number] [address] [place] [address] 85639 Bilirubin [Mass/Vol] 0.4 mg/dL Normal 0.2-1.3 [facility] Comment on above: Order Comment: Speci men Type: BLOOD SPECIMEN Ordering Facility: [facility] Address: [address] [address] Performed By: #### 2 4323-8 #### [facility] CLIA [id number] [address] [place] [address] 06837 Calcium [Mass/Vol] 9.1 mg/dL Normal 8.5-10.2 [facility] Comment on above: Order Comment: Speci men Type: BLOOD SPECIMEN Ordering Facility: [facility] Address: [address] [address] Performed By: #### 2 4323-8 #### [facility] CLIA [id number] [address] [place] [address] 97666 Chloride [Moles/Vol] 104 mmol/L Normal 97-105 [facility] Comment on above: Order Comment: Speci men Type: BLOOD SPECIMEN Ordering Facility: [facility] Address: [address] [place] [address] Performed By: #### 2 4323-8 #### [facility] CLIA [id number] [address] [place] [address] 59830 CO2 [Moles/Vol] 30 mmol/L Normal 22-30 [facility] Comment on above: Order Comment: Speci men Type: BLOOD SPECIMEN Ordering Facility: [facility] Address: [address] [place] [address] Performed By: #### 2 4323-8 #### [facility] CLIA [id number] [address] [place] [address] Creatinine [Mass/Vol] 0.97 mg/dL High 0.58-0.96 [facility] Comment on above: Order Comment: Speci men Type: BLOOD SPECIMEN Ordering Facility: [facility] Address: [address] [place] [address] Performed By: #### 2 4323-8 #### [facility] CLIA [id number] [address] [place], [place] [address] ESTIMATED GLOMERULAR FILTRATION RATE 59 mL/min/1.73m??? Low >=60 [facility] Comment on above: Order Comment: Speci men Type: BLOOD SPECIMEN Ordering Facility: [facility] Address: [address] [place] [address] Result Comment: Shoshana mated Glomerular Filtration Rate [...] GFR. Performed By: #### 2 4323-8 #### [facility] CLIA [id number] [address] [place] [address] 37719 Glucose [Mass/Vol] 101 mg/dL High 74-99 [facility] Comment on above: Order Comment: Preet patino Type: BLOOD SPECIMEN Ordering Facility: [facility] Address: [address] [place] [address] Result Comment: The [place] [employer] (ADA) provides guidance for cutoff [...] Standards of Medical Care in Diabetes 2016, [place] [employer]. Diabetes Care. 2016.39(Suppl 1). Performed By: #### 2 4323-8 #### [facility] CLIA [id number] [address] [place] [address] 87718 Potassium [Moles/Vol] 4.5 mmol/L Normal 3.7-5.1 [facility] Comment on above: Order Comment: Preet patino Type: BLOOD SPECIMEN Ordering Facility: [facility] Address: [address] [place] [address] Performed By: #### 2 4323-8 #### [facility] CLIA [id number] [address] [place] [address] 96246 Protein [Mass/Vol] 6.5 g/dL Normal 6.3-8.0 [facility] Comment on above: Order Comment: Preet patino Type: BLOOD SPECIMEN Ordering Facility: [facility] Address: [address] [place] [address] Performed By: #### 2 4323-8 #### [facility] CLIA [id number] [address] [place] [address] 64541 Sodium [Moles/Vol] 142 mmol/L Normal 136-144 [facility] Comment on above: Order Comment: Speci men Type: BLOOD SPECIMEN Ordering Facility: [facility] Address: [address] [address] Performed By: #### 2 4323-8 #### [facility] CLIA [id number] [address] [place] [address] 26650 Urea nitrogen [Mass/Vol] 17 mg/dL Normal 7-21 [facility] Comment on above: Order Comment: Speci men Type: BLOOD SPECIMEN Ordering Facility: [facility] Address: [address] Performed By: #### 2 4323-8 #### [facility] CLIA [id number] [address] [place] [address] 40410 IMMUNOFIXATION SCREEN, SERUM on 11-27-2022 MPA RESULT No M protein is identified. Normal No M protein is identified. [facility] Comment on above: Order Comment: Speci men Type: BLOOD SPECIMEN Ordering Facility: [facility] Address: [address] [address] Performed By: #### 5 7021-8 #### [facility] CLIA [id number] [address] [place] [address] 64060 STAFF REVIEW (RUST) Reviewed by Taqueria Beck MD, Ph.D ([id number]) Normal [facility] Comment on above: Order Comment: Speci men Type: BLOOD SPECIMEN Ordering Facility: [facility] Address: [address] Performed By: #### 5 7021-8 #### [facility] CLIA [id number] [address] [place] [address] 73740 IMMUNOGLOBULINS GAMon 2022 IgA [Mass/Vol] 78 mg/dL Normal 70-400 [facility] Comment on above: Order Comment: Speci men Type: BLOOD SPECIMEN Ordering Facility: [facility] Address: [address] Performed By: #### 2 4323-8 #### [facility] CLIA [id number] [address] [place] [address] IgG [Mass/Vol] 683 mg/dL Low 700-1600 [facility] Comment on above: Order Comment: Speci men Type: BLOOD SPECIMEN Ordering Facility: [facility] Address: [address] [address] Performed By: #### 2 4323-8 #### [facility] CLIA [id number] [address] [place] [address] 37157 IgM [Mass/Vol] 300 mg/dL High 40-230 [facility] Comment on above: Order Comment: Speci men Type: BLOOD SPECIMEN Ordering Facility: [facility] Address: [address] [place] [address] Performed By: #### 2 4323-8 #### [facility] CLIA [id number] [address] [place] [address] 53618 KAPPA/BOWLES,FREE,SERon 2022 Immunoglobulin light chains.kappa.free (S) [Mass/Vol] 82.2 mg/L High 3.3-19.4 [facility] Comment on above: Order Comment: Speci men Type: BLOOD SPECIMEN Ordering Facility: [facility] Address: [address] [place] [address] Result Comment: Rare ly, increased serum free light chains levels may not be detected or accurately quantified due to prozone phenomenon or in high viscosity samples using this immunoturbidimetric assay. Correlation with other laboratory results and clinical findings is recommended. The [place] Free Light Chain was performed using the Binding Site Optilite immunoturbidimetric method. Result obtained with different assay methods or kits cannot be used interchangeably. Performed By: #### 2 4323-8 #### [facility] CLIA [id number] [address] [place], [place] [address] Immunoglobulin light chains.kappa/Immunogl obulin light chains.lambda (S) [Mass ratio] 4.11 High 0.26-1.65 [facility] Comment on above: Order Comment: Speci men Type: BLOOD SPECIMEN Ordering Facility: [facility] Address: [address] [address] Performed By: #### 2 4323-8 #### [facility] CLIA [id number] [address] [place] [address] 30004 Immunoglobulin light chains.lambda.free [Mass/Vol] 20.0 mg/L Normal 5.7-26.3 [facility] Comment on above: Order Comment: Speci men Type: BLOOD SPECIMEN Ordering Facility: [facility] Address: [address] [address] Result Comment: Rare ly, increased serum free [...] interchangeably. Performed By: #### 2 4323-8 #### [facility] CLIA [id number] [address] [place] [address] 74715 PROTEIN ELECTROPHORESIS SERU M WITH BRANDON (P)on 11-27-2022 Albumin [Mass/Vol] 3.54 g/dL Normal 3.43-5.41 [facility] Comment on above: Order Comment: Speci men Type: BLOOD SPECIMEN Ordering Facility: [facility] Address: [address] [address] Performed By: #### 2 4323-8 #### [facility] CLIA [id number] [address] [place] [address] 51505 Alpha 1 globulin Elph [Mass/Vol] 0.36 g/dL Normal 0.18-0.43 [facility] Comment on above: Order Comment: Speci men Type: BLOOD SPECIMEN Ordering Facility: [facility] Address: [address] [address] Performed By: #### 2 4323-8 #### [facility] CLIA [id number] [address] [place] [address] 04802 Alpha 2 globulin Elph [Mass/Vol] 0.75 g/dL Normal 0.42-0.98 [facility] Comment on above: Order Comment: Speci men Type: BLOOD SPECIMEN Ordering Facility: [facility] Address: [address] [place] [address] Performed By: #### 2 4323-8 #### [facility] CLIA [id number] [address] [place] [address] 65217 Beta globulin Elph [Mass/Vol] 0.59 g/dL Low 0.61-1.17 [facility] Comment on above: Order Comment: Speci men Type: BLOOD SPECIMEN Ordering Facility: [facility] Address: [address] [place] [address] Performed By: #### 2 4323-8 #### [facility] CLIA [id number] [address] [place] [address] 72714 COMMENT (SERUM PROT ELECTRO) Monoclonal Protein analysis (immunofixation) is not indicated. Normal [facility] Comment on above: Order Comment: Speci men Type: BLOOD SPECIMEN Ordering Facility: [facility] Address: [address] [place] [address] Performed By: #### 2 4323-8 #### [facility] CLIA [id number] [address] [place] [address] 36134 Gamma globulin Elph [Mass/Vol] 0.76 g/dL Normal 0.53-1.51 [facility] Comment on above: Order Comment: Speci men Type: BLOOD SPECIMEN Ordering Facility: [facility] Address: [address] [place] [address] Performed By: #### 2 4323-8 #### [facility] CLIA [id number] [address] [place] [address] 64082 M-PROTEIN LOCATION Normal [facility] Comment on above: Order Comment: Speci men Type: BLOOD SPECIMEN Ordering Facility: [facility] Address: [address] [place] [address] Result Comment: Not Applicable. Performed By: #### 2 4323-8 #### [facility] CLIA [id number] [address] [place] [address] 04610 Protein Fractions [Interp] No definitive M protein is identified on protein electrophoresis. Normal No definitive M protein is identified on protein electrophor esis. [facility] Comment on above: Order Comment: Speci men Type: BLOOD SPECIMEN Ordering Facility: [facility] Address: [address] [place] [address] Performed By: #### 2 4323-8 #### [facility] CLIA [id number] [address] [place] [address] 68410 Protein.monoclonal Elph [Mass/Vol] 0.00 g/dL Normal <=0.00 [facility] Comment on above: Order Comment: Speci men Type: BLOOD SPECIMEN Ordering Facility: [facility] Address: [address] [place] [address] Performed By: #### 2 4323-8 #### [facility] CLIA [id number] [address] [place], [place] [address] SPE STAFF REVIEW Reviewed by Milka Bahena MD [facility] Comment on above: Order Comment: Speci men Type: BLOOD SPECIMEN Ordering Facility: [facility] Address: [address] [place] [address] Performed By: #### 2 4323-8 #### [facility] CLIA [id number] [address] [place], [place] [address] Prot SerPl-mCncon 11-27-2022 Protein [Mass/Vol] 6.0 g/dL Low 6.3-8.0 [facility] Comment on above: Order Comment: Speci men Type: BLOOD SPECIMEN Ordering Facility: [facility] Address: [address] [place] [address] Performed By: #### 2 4323-8 #### [facility] CLIA [id number] [address] [place] [address] HEAD_NECKon 09-11-[address] HEAD_NECK [...] by: WILLIAM DOMINGUEZ Date: 2022-09-11 17:07 Normal [facility] CT Abdomen and Pelvis W cont [...] any questions regarding this interpretation, please call [phone]. If you are unable to reach us at the number above, please feel free to contact [facility] at [phone]. DIVISION OF RADIOLOGY * * *Final Report* * * DATE OF EXAM: Aug 28 2022 1:36PM [facility] 0530 - CT ABD/PEL W IVCON / [...] chest CT performed will be reported separately. Operating Engineer Apprentice (topogram) images: No additional findings. DIVISION OF RADIOLOGY Provider, [facility] - 08/28/2022 * * *Final Report* * * DATE OF EXAM: Aug 28 2022 1:36PM [facility] 0530 - CT ABD/PEL W IVCON / [...] chest CT performed will be reported separately. Operating Engineer Apprentice (topogram) images: No additional findings. IMPRESSION IMPRESSION: [...] any questions regarding this interpretation, please call [phone]. If you are unable to reach us at the number above, please feel free to contact [facility] at [phone]. [facility] CT Abdomen and Pelvis W cont rast IVOrdered By: [facility] Provider on 08-28-2022 [facility] CT Chest W contrast Rivka IMPRESSION: 1. [...] any questions regarding this interpretation, please call [phone]. If you are unable to reach us at the number above, please feel free to contact [facility] at [phone]. DIVISION OF RADIOLOGY * * *Final Report* * * DATE OF EXAM: Aug 28 2022 1:36PM [facility] 0539 - CT CHEST W IVCON / [...] was performed concurrently and is reported separately. Operating Engineer Apprentice (topogram) images: No additional findings. DIVISION OF RADIOLOGY Provider, [facility] - 08/28/2022 * * *Final Report* * * DATE OF EXAM: Aug 28 2022 1:36PM [facility] 0539 - CT CHEST W IVCON / [...] was performed concurrently and is reported separately. Operating Engineer Apprentice (topogram) images: No additional findings. IMPRESSION IMPRESSION: [...] any questions regarding this interpretation, please call [phone]. If you are unable to reach us at the number above, please feel free to contact [facility] at [phone]. [facility] No Panel Informationon 08-28 Radiology Study observation (narrative) [facility] Covid-19 PCR (CVDTBH)on SARS-CoV-2 (COVID-19) RNA ZABRINA+probe Ql (Unsp spec) Detected Critically abnormal NOT DETECTED [facility] Comment on above: Result Comment: This test is not yet approved or cleared by the [place] FDA. When there are no FDA-approved or cleared tests available, and other criteria are met, FDA can make tests available under an emergency access mechanism called an Emergency Use Authorization (EUA). The EUA for this test is supported by the [place] of Health and Human Service's (HHS's) declaration [...] longer be used). Performed By: #### C [facility] #### [facility] [address] [place] [address] Dr. Jose David Shanks Vital Signs Date Time Vital Sign Value Performing Clinician Facility 03-17-2025 10:42-0400 Body height 165.[address] 03-17-2025 10:42-0400 Body mass index (BMI) [Ratio] 33.28 kg/m2 [address] 03-17-2025 10:42-0400 Body weight 90.[address] 03-17-2025 10:42-0400 Diastolic blood pressure 60 mm[Hg] [address] 03-17-2025 10:42-0400 Systolic blood pressure 120 mm[Hg] [address] 02-25-2025 08:46-0400 Body height 165.1 cm Reyna Esparza MD Work Phone: [facility] 02-25-2025 08:46-0400 Body mass index (BMI) [Ratio] 32.45 kg/m2 Reyna Esparza MD Work Phone: [facility] 02-25-2025 08:46-0400 Body weight 88.45 kg Reyna Esparza MD Work Phone: [facility] 02-25-2025 08:46-0400 Diastolic blood pressure 59 mm[Hg] Reyna Esparza MD Work Phone: [facility] 02-25-2025 08:46-0400 Heart rate 72 /min Reyna Esparza MD Work Phone: [facility] 02-25-2025 08:46-0400 Systolic blood pressure 118 mm[Hg] Reyna Esparza MD Work Phone: [facility] 01-22-2025 10:20-0400 Body height 166.37 cm Nathan Ball DO Work Phone: [facility] 01-22-2025 10:20-0400 Body mass index (BMI) [Ratio] 31.9 kg/m2 Nathan Ball DO Work Phone: [facility] 01-22-2025 10:20-0400 Body weight 88.45 kg Nathan Ball DO Work Phone: [facility] 01-22-2025 10:20-0400 Diastolic blood pressure 64 mm[Hg] Nathan Ball DO Work Phone: [facility] 01-22-2025 10:20-0400 Heart rate 65 /min Nahtan Ball DO Work Phone: [facility] 01-22-2025 10:20-0400 Respiratory rate 12 /min Nathan Ball DO Work Phone: [facility] 01-22-2025 10:20-0400 Systolic blood pressure 215 mm[Hg] Nathan Ball DO Work Phone: [facility] 01-12-2025 11:10-0400 Body height 165.1 cm Holden Rosado PURIFICATION DIRECTOR-VAULT PERSON Work Phone: [facility] 01-12-2025 11:10-0400 Body mass index (BMI) [Ratio] 33.28 kg/m2 Holden Rosado PURIFICATION DIRECTOR-VAULT PERSON Work Phone: [facility] 01-12-2025 11:10-0400 Body weight 90.72 kg Holden Rosado PURIFICATION DIRECTOR-VAULT PERSON Work Phone: [facility] 01-12-2025 11:10-0400 Diastolic blood pressure 60 mm[Hg] Holden Rosado PURIFICATION DIRECTOR-VAULT PERSON Work Phone: [facility] 01-12-2025 11:10-0400 Heart rate 60 /min Holden Rosado PURIFICATION DIRECTOR-VAULT PERSON Work Phone: [facility] 01-12-2025 11:10-0400 Systolic blood pressure 124 mm[Hg] Holden Rosado PURIFICATION DIRECTOR-VAULT PERSON Work Phone: [facility] 12-16-2024 10:50-0500 Body height 166.37 cm Nathan Ball DO Work Phone: [facility] 12-16-2024 10:50-0500 Body mass index (BMI) [Ratio] 32 kg/m2 Nathan Ball DO Work Phone: [facility] 12-16-2024 10:50-0500 Body weight 88.59 kg Nathan Ball DO Work Phone: [facility] 12-16-2024 10:50-0500 Diastolic blood pressure 67 mm[Hg] Nathan Ball DO Work Phone: [facility] 12-16-2024 10:50-0500 Heart rate 56 /min Nathan Ball DO Work Phone: [facility] 12-16-2024 10:50-0500 SaO2% (BldA) [Mass fraction] 97 % Nathan Ball DO Work Phone: [facility] 12-16-2024 10:50-0500 Systolic blood pressure 136 mm[Hg] Nathan Ball DO Work Phone: [facility] 11-25-2024 13:55-0500 Body height 165.1 cm Reyna Esparza MD Work Phone: [facility] 11-25-2024 13:55-0500 Body mass index (BMI) [Ratio] 32.28 kg/m2 Reyna Esparza MD Work Phone: [facility] 11-25-2024 13:55-0500 Body weight 88 kg Reyna Esparza MD Work Phone: [facility] 01-28-2025 13:55-0500 Diastolic blood pressure 64 mm[Hg] Reyna Esparza MD Work Phone: [facility] 11-25-2024 13:55-0500 Heart rate 60 /min Reyna Esparza MD Work Phone: [facility] 11-25-2024 13:55-0500 Systolic blood pressure 141 mm[Hg] Reyna Esparza MD Work Phone: [facility] 11-17-2024 13:05-0500 Diastolic blood pressure 59 mm[Hg] Nathan Ball DO Work Phone: [facility] 11-17-2024 13:05-0500 Heart rate 68 /min Nathan Ball DO Work Phone: [facility] 11-17-2024 13:05-0500 Respiratory rate 16 /min Nathan Ball DO Work Phone: [facility] 11-17-2024 13:05-0500 SaO2% (BldA) [Mass fraction] 94 % Nathan Ball DO Work Phone: [facility] 11-17-2024 13:05-0500 Systolic blood pressure 163 mm[Hg] Nathan Ball DO Work Phone: [facility] 11-17-2024 10:05-0500 Body height 166.37 cm Nathan Ball DO Work Phone: [facility] 11-17-2024 10:05-0500 Body weight 89.35 kg Nathan Ball DO Work Phone: [facility] 10-08-2024 10:40-0500 Body height 165.1 cm Edinson Perry DO Work Phone: [facility] 10-08-2024 10:40-0500 Body mass index (BMI) [Ratio] 33.12 kg/m2 Edinson Perry DO Work Phone: [facility] 10-08-2024 10:40-0500 Body weight 90.27 kg Edinson Perry DO Work Phone: [facility] 10-08-2024 10:40-0500 Diastolic blood pressure 60 mm[Hg] Edinson Perry DO Work Phone: [facility] 10-08-2024 10:40-0500 Heart rate 78 /min Edinson Perry DO Work Phone: [facility] 10-08-2024 10:40-0500 Systolic blood pressure 124 mm[Hg] Edinson Perry DO Work Phone: [facility] 09-11-2024 10:19-0500 Body height 165.1 cm [facility] 09-11-2024 10:19-0500 Body mass index (BMI) [Ratio] 32.3 kg/m2 [facility] 09-11-2024 10:19-0500 Body weight 88.13 kg [facility] 09-11-2024 10:19-0500 Diastolic blood pressure 54 mm[Hg] [facility] 09-11-2024 10:19-0500 Heart rate 63 /min [facility] 09-11-2024 10:19-0500 SaO2% (BldA) [Mass fraction] 97 % [facility] 09-11-2024 10:19-0500 Systolic blood pressure 118 mm[Hg] [facility] 06-03-2024 10:54-0400 Body height 165.1 cm DO Nathan Ball Work Phone: [facility] 06-03-2024 10:54-0400 Body mass index (BMI) [Ratio] 26.8 kg/m2 DO Nathan Ball Work Phone: [facility] 06-03-2024 10:54-0400 Body weight 73.02 kg DO Nathan Ball Work Phone: [facility] 06-03-2024 10:54-0400 Diastolic blood pressure 89 mm[Hg] DO Nathan Ball Work Phone: [facility] 06-03-2024 10:54-0400 Heart rate 56 /min DO Nathan Ball Work Phone: [facility] 06-03-2024 10:54-0400 Respiratory rate 12 /min DO Nathan Ball Work Phone: [facility] 06-03-2024 10:54-0400 Systolic blood pressure 139 mm[Hg] DO Nathan Ball Work Phone: [facility] 04-21-2024 10:21-0400 Body mass index (BMI) [Ratio] 32.98 kg/m2 Holden Rosado PURIFICATION DIRECTOR-VAULT PERSON Work Phone: [facility] 04-21-2024 10:21-0400 Body weight 89.9 kg Holden Rosado PURIFICATION DIRECTOR-VAULT PERSON Work Phone: [facility] 04-21-2024 10:21-0400 Diastolic blood pressure 70 mm[Hg] Holden Rosado PURIFICATION DIRECTOR-VAULT PERSON Work Phone: [facility] 04-21-2024 10:21-0400 Heart rate 60 /min Holden Rosado PURIFICATION DIRECTOR-VAULT PERSON Work Phone: [facility] 04-21-2024 10:21-0400 Systolic blood pressure 132 mm[Hg] Holden Rosado PURIFICATION DIRECTOR-VAULT PERSON Work Phone: [facility] 03-12-2024 09:27-0400 Diastolic blood pressure 66 mm[Hg] [address] 03-12-2024 09:27-0400 Heart rate 62 /min [address] 03-12-2024 09:27-0400 Systolic blood pressure 114 mm[Hg] [address] 03-05-2024 11:46-0400 Body height 165.1 cm Holden Rosado PURIFICATION DIRECTOR-VAULT PERSON Work Phone: [facility] 03-05-2024 11:46-0400 Body mass index (BMI) [Ratio] 32.62 kg/m2 Holden Rosado PURIFICATION DIRECTOR-VAULT PERSON Work Phone: [facility] 03-05-2024 11:46-0400 Body weight 88.91 kg Holden Rosado PURIFICATION DIRECTOR-VAULT PERSON Work Phone: [facility] 03-05-2024 11:46-0400 Diastolic blood pressure 68 mm[Hg] Holden Rosado PURIFICATION DIRECTOR-VAULT PERSON Work Phone: [facility] 03-05-2024 11:46-0400 Heart rate 62 /min Holden Roasdo PURIFICATION DIRECTOR-VAULT PERSON Work Phone: [facility] 03-05-2024 11:46-0400 Systolic blood pressure 120 mm[Hg] Holden Rosado PURIFICATION DIRECTOR-VAULT PERSON Work Phone: [facility] 02-27-2024 09:53-0400 Body height 165.1 cm DO Nathan Ball Work Phone: [facility] 02-27-2024 09:53-0400 Body mass index (BMI) [Ratio] 31.9 kg/m2 DO Nathan Ball Work Phone: [facility] 02-27-2024 09:53-0400 Body weight 87.08 kg DO Nathan Ball Work Phone: [facility] 02-27-2024 09:53-0400 Diastolic blood pressure 72 mm[Hg] DO Nathan Ball Work Phone: [facility] 02-27-2024 09:53-0400 Heart rate 62 /min DO Nathan Ball Work Phone: [facility] 02-27-2024 09:53-0400 SaO2% (BldA) [Mass fraction] 97 % DO Nathan Ball Work Phone: [facility] 02-27-2024 09:53-0400 Systolic blood pressure 132 mm[Hg] DO Nathan Ball Work Phone: [facility] 02-13-2024 10:30-0400 Body height 165.1 cm [facility] 02-13-2024 10:30-0400 Body mass index (BMI) [Ratio] 32.8 kg/m2 [facility] 02-13-2024 10:30-0400 Body weight 89.35 kg [facility] 02-13-2024 10:30-0400 Diastolic blood pressure 60 mm[Hg] [facility] 02-13-2024 10:30-0400 Heart rate 56 /min [facility] 02-13-2024 10:30-0400 SaO2% (BldA) [Mass fraction] 98 % [facility] 02-13-2024 10:30-0400 Systolic blood pressure 128 mm[Hg] [facility] 02-01-2024 11:01-0400 Body height 165.1 cm [facility] 02-01-2024 11:01-0400 Body mass index (BMI) [Ratio] 27.3 kg/m2 [facility] 02-01-2024 11:01-0400 Body weight 74.44 kg [facility] 02-01-2024 11:01-0400 Diastolic blood pressure 72 mm[Hg] [facility] 02-01-2024 11:01-0400 Heart rate 49 /min [facility] 02-01-2024 11:01-0400 Respiratory rate 12 /min [facility] 02-01-2024 11:01-0400 Systolic blood pressure 131 mm[Hg] [facility] 11-02-2023 11:00-0500 Body height 165.1 cm Nathan Ball Other [facility] [employer] Other 11-02-2023 11:00-0500 Body mass index (BMI) [Ratio] 31.78 kg/m2 Nathan Ball Other [facility] [employer] Other 11-02-2023 11:00-0500 Body weight 86.64 kg Nathan Ball Other [facility] [employer] Other 11-02-2023 11:00-0500 Diastolic blood pressure 80 mm[Hg] Nathan Ball Other [facility] [employer] Other 11-02-2023 11:00-0500 Respiratory rate 16 /min Nathan Ball Other [facility] [employer] Other 11-02-2023 11:00-0500 Systolic blood pressure 130 mm[Hg] Nathan Ball Other [employer] Other 10-02-2023 09:45-0500 Body height 165.1 cm Nathan Ball Other [employer] Other 10-02-2023 09:45-0500 Body mass index (BMI) [Ratio] 31.61 kg/m2 Nathan Ball Other [employer] Other 10-02-2023 09:45-0500 Body weight 86.18 kg Nathan Ball Other [employer] Other 10-02-2023 09:45-0500 Diastolic blood pressure 74 mm[Hg] Nathan Ball Other [employer] Other 10-02-2023 09:45-0500 Respiratory rate 12 /min Nathan Ball Other [employer] Other 10-02-2023 09:45-0500 Systolic blood pressure 144 mm[Hg] Nathan Ball Other [employer] Other 06-08-2023 11:15-0400 Body height 165.1 cm Nathan Ball Other [employer] Other 06-08-2023 11:15-0400 Body mass index (BMI) [Ratio] 32.95 kg/m2 Nathan Ball Other [employer] Other 06-08-2023 11:15-0400 Body weight 89.81 kg Nathan Ball Other [employer] Other 06-08-2023 11:15-0400 Diastolic blood pressure 62 mm[Hg] Nathan Ball Other [employer] Other 06-08-2023 11:15-0400 Respiratory rate 12 /min Nathan Ball Other [employer] Other 06-08-2023 11:15-0400 Systolic blood pressure 138 mm[Hg] Nathan Ball Other [employer] Other 06-04-2023 13:51-0400 Body temperature 97.7 [degF] Luis Mckenzie MD Work Phone: [facility] 06-04-2023 13:51-0400 Body weight 91.99 kg Luis Mckenzie MD Work Phone: [facility] 06-04-2023 13:51-0400 Diastolic blood pressure 58 mm[Hg] Luis Mckenzie MD Work Phone: [facility] 06-04-2023 13:51-0400 Heart rate 56 /min Luis Mckenzie MD Work Phone: [facility] 06-04-2023 13:51-0400 Respiratory rate 18 /min Luis Mckenzie MD Work Phone: [facility] 06-04-2023 13:51-0400 SaO2% (BldA) [Mass fraction] 98 % Luis Mckenzie MD Work Phone: [facility] 06-04-2023 13:51-0400 Systolic blood pressure 155 mm[Hg] Luis Mckenzie MD Work Phone: [facility] 05-25-2023 11:15-0400 Body height 165.1 cm Nathan Ball Other [employer] Other 05-25-2023 11:15-0400 Body mass index (BMI) [Ratio] 32.86 kg/m2 Nathan Ball Other [employer] Other 05-25-2023 11:15-0400 Body weight 89.59 kg Nathan Ball Other [employer] Other 05-25-2023 11:15-0400 Diastolic blood pressure 68 mm[Hg] Nathan Ball Other [facility] [employer] Other 05-25-2023 11:15-0400 Respiratory rate 16 /min Nathan Ball Other [facility] [employer] Other 05-25-2023 11:15-0400 Systolic blood pressure 142 mm[Hg] Nathan Ball Other [facility] [employer] Other 05-18-2023 15:30-0400 Body temperature 97.7 [degF] DO Nathan Ball Work Phone: [facility] 05-18-2023 15:30-0400 Diastolic blood pressure 71 mm[Hg] DO Nathan Ball Work Phone: [facility] 05-18-2023 15:30-0400 Heart rate 62 /min DO Nathan Ball Work Phone: [facility] 05-18-2023 15:30-0400 Respiratory rate 16 /min DO Nathan Ball Work Phone: [facility] 05-18-2023 15:30-0400 SaO2% (BldA) [Mass fraction] 95 % DO Nathan Ball Work Phone: [facility] 05-18-2023 15:30-0400 Systolic blood pressure 145 mm[Hg] DO Nathan Ball Work Phone: [facility] 05-18-2023 05:39-0400 Body weight 88.1 kg DO Nathan Ball Work Phone: [facility] 05-17-2023 20:00-0400 Inhaled oxygen flow rate 1.5 L/min DO Nathan Ball Work Phone: [facility] 05-17-2023 15:54-0400 Body height 172.72 cm DO Nathan Ball Work Phone: [facility] 05-16-2023 11:30-0400 Body height 165.1 cm Nathan Ball Other [employer] Other 05-16-2023 11:30-0400 Body mass index (BMI) [Ratio] 33.28 kg/m2 Nathan Ball Other [employer] Other 05-16-2023 11:30-0400 Body weight 90.72 kg Nathan Ball Other [employer] Other 05-16-2023 11:30-0400 Diastolic blood pressure 69 mm[Hg] Nathan Ball Other [employer] Other 05-16-2023 11:30-0400 Respiratory rate 16 /min Nathan Ball Other [employer] Other 05-16-2023 11:30-0400 Systolic blood pressure 192 mm[Hg] Nathan Ball Other [employer] Other 05-09-2023 11:15-0400 Body height 165.1 cm Nathan Ball Other [employer] Other 05-09-2023 11:15-0400 Body mass index (BMI) [Ratio] 32.75 kg/m2 Nathan Ball Other [employer] Other 05-09-2023 11:15-0400 Body weight 89.27 kg Nathan Ball Other [employer] Other 05-09-2023 11:15-0400 Diastolic blood pressure 62 mm[Hg] Nathan Ball Other [employer] Other 05-09-2023 11:15-0400 Respiratory rate 16 /min Nathan Ball Other [employer] Other 05-09-2023 11:15-0400 SaO2% (BldA) [Mass fraction] 98 % Nathan Ball Other [employer] Other 05-09-2023 11:15-0400 Systolic blood pressure 189 mm[Hg] Nathan Ball Other [employer] Other 04-26-2023 11:30-0400 Body height 165.1 cm Nathan Ball Other [employer] Other 04-26-2023 11:30-0400 Body mass index (BMI) [Ratio] 32.53 kg/m2 Nathan Ball Other [employer] Other 04-26-2023 11:30-0400 Body weight 88.68 kg Nathan Ball Other [employer] Other 04-26-2023 11:30-0400 Diastolic blood pressure 80 mm[Hg] Nathan Ball Other [employer] Other 04-26-2023 11:30-0400 Respiratory rate 16 /min Nathan Ball Other [employer] Other 04-26-2023 11:30-0400 Systolic blood pressure 136 mm[Hg] Nathan Ball Other [employer] Other 04-18-2023 09:45-0400 Body height 165.1 cm Nathan Ball Other [employer] Other 04-18-2023 09:45-0400 Body mass index (BMI) [Ratio] 33.28 kg/m2 Nathan Ball Other [employer] Other 04-18-2023 09:45-0400 Body weight 90.72 kg Nathan Ball Other [employer] Other 04-18-2023 09:45-0400 Diastolic blood pressure 76 mm[Hg] Nathan Ball Other [employer] Other 04-18-2023 09:45-0400 Respiratory rate 20 /min Nathan Ball Other [employer] Other 04-18-2023 09:45-0400 SaO2% (BldA) [Mass fraction] 98 % Nathan Ball Other [employer] Other 04-18-2023 09:45-0400 Systolic blood pressure 132 mm[Hg] Nathan Ball Other [employer] Other 03-15-2023 10:45-0400 Body height 165.1 cm Nathan Ball Other [employer] Other 03-15-2023 10:45-0400 Body mass index (BMI) [Ratio] 31.95 kg/m2 Nathan Ball Other [employer] Other 03-15-2023 10:45-0400 Body weight 87.09 kg Nathan Ball Other [employer] Other 03-15-2023 10:45-0400 Diastolic blood pressure 77 mm[Hg] Nathan Ball Other [employer] Other 03-15-2023 10:45-0400 Respiratory rate 16 /min Nathan Ball Other [employer] Other 03-15-2023 10:45-0400 Systolic blood pressure 151 mm[Hg] Nathan Ball Other [employer] Other 03-09-2023 17:00-0400 Body temperature 97.9 [degF] DO Nathan Ball Work Phone: [facility] 03-09-2023 17:00-0400 Diastolic blood pressure 72 mm[Hg] DO Nathan Ball Work Phone: [facility] 03-09-2023 17:00-0400 Heart rate 54 /min DO Nathan Ball Work Phone: [facility] 03-09-2023 17:00-0400 Respiratory rate 16 /min DO Nathan Ball Work Phone: [facility] 03-09-2023 17:00-0400 SaO2% (BldA) [Mass fraction] 96 % DO Nathan Ball Work Phone: [facility] 03-09-2023 17:00-0400 Systolic blood pressure 140 mm[Hg] DO Nathan Ball Work Phone: [facility] 03-09-2023 08:11-0400 Body height 165.1 cm DO Nathan Ball Work Phone: [facility] 03-09-2023 08:11-0400 Body weight 90 kg DO Nathan Ball Work Phone: [facility] 03-07-2023 10:14-0400 Diastolic blood pressure 70 mm[Hg] Nathan E Ball Work Phone: [facility] [employer] DO Work Phone: 03-07-2023 10:14-0400 Systolic blood pressure 138 mm[Hg] Nathan E Ball Work Phone: [facility] [employer] DO Work Phone: 03-07-2023 10:04-0400 Body height 165.1 cm Nathan E Ball Work Phone: [facility] [employer] DO Work Phone: 03-07-2023 10:04-0400 Body mass index (BMI) [Ratio] 33.95 kg/m2 Nathan E Ball Work Phone: [facility] [employer] DO Work Phone: 03-07-2023 10:04-0400 Body surface area Derived from formula 1.99 m2 Nathan E Ball Work Phone: [facility] [employer] DO Work Phone: 03-07-2023 10:04-0400 Body weight 92.53 kg Nathan E Ball Work Phone: [facility] [employer] DO Work Phone: 03-07-2023 10:04-0400 Diastolic blood pressure 72 mm[Hg] Nathan E Ball Work Phone: [facility] [employer] 250 DO Work Phone: 03-07-2023 10:04-0400 Heart rate 45 /min Nathan E Ball Work Phone: [facility] [employer] 250 DO Work Phone: 03-07-2023 10:04-0400 Systolic blood pressure 144 mm[Hg] Nathan E Ball Work Phone: [facility] [employer] 250 DO Work Phone: 02-14-2023 11:15-0400 Body height 165.1 cm Nathan Ball Other [employer] Other 02-14-2023 11:15-0400 Body mass index (BMI) [Ratio] 32.61 kg/m2 Nathan Ball Other [employer] Other 02-14-2023 11:15-0400 Body weight 88.91 kg Nathan Ball Other [employer] Other 02-14-2023 11:15-0400 Diastolic blood pressure 72 mm[Hg] Nathan Ball Other [employer] Other 02-14-2023 11:15-0400 Respiratory rate 12 /min Nathan Ball Other [employer] Other 02-14-2023 11:15-0400 Systolic blood pressure 204 mm[Hg] Nathan Ball Other [employer] Other 02-02-2023 12:15-0400 Body height 165.1 cm Nathan Ball Other [employer] Other 02-02-2023 12:15-0400 Body mass index (BMI) [Ratio] 32.78 kg/m2 Nathan Ball Other [employer] Other 02-02-2023 12:15-0400 Body weight 89.36 kg Nathan Ball Other [employer] Other 02-02-2023 12:15-0400 Diastolic blood pressure 70 mm[Hg] Nathan Ball Other [employer] Other 02-02-2023 12:15-0400 Respiratory rate 12 /min Nathan Ball Other [employer] Other 02-02-2023 12:15-0400 Systolic blood pressure 201 mm[Hg] Nathan Ball Other [employer] Other 12-14-2022 10:00-0500 Body height 165.1 cm Nathan Ball Other [employer] Other 12-14-2022 10:00-0500 Body mass index (BMI) [Ratio] 32.53 kg/m2 Nathan Ball Other [employer] Other 12-14-2022 10:00-0500 Body weight 88.68 kg Nathan Ball Other [employer] Other 12-14-2022 10:00-0500 Diastolic blood pressure 70 mm[Hg] Nathan Ball Other [employer] Other 12-14-2022 10:00-0500 Respiratory rate 12 /min Nathan Ball Other [employer] Other 12-14-2022 10:00-0500 Systolic blood pressure 140 mm[Hg] Nathan Ball Other [employer] Other 12-04-2022 13:25-0500 Body height 166.4 cm Luis Mckenzie MD Work Phone: [facility] 12-04-2022 13:25-0500 Body temperature 97.11 [degF] Luis Mckenzie MD Work Phone: [facility] 12-04-2022 13:25-0500 Body weight 90.36 kg Luis Mckenzie MD Work Phone: [facility] 12-04-2022 13:25-0500 Diastolic blood pressure 54 mm[Hg] Luis Mckenzie MD Work Phone: [facility] 12-04-2022 13:25-0500 Heart rate 63 /min Luis Mckenzie MD Work Phone: [facility] 12-04-2022 13:25-0500 Respiratory rate 16 /min Luis Mckenzie MD Work Phone: [facility] 12-04-2022 13:25-0500 SaO2% (BldA) [Mass fraction] 96 % Luis Mckenzie MD Work Phone: [facility] 12-04-2022 13:25-0500 Systolic blood pressure 167 mm[Hg] Luis Mckenzie MD Work Phone: [facility] 11-14-2022 15:00-0500 Body height 165.1 cm Nathna Hathaway Other [employer] Other 11-14-2022 15:00-0500 Body mass index (BMI) [Ratio] 32.53 kg/m2 Nathan Ball Other [employer] Other 11-14-2022 15:00-0500 Body weight 88.68 kg Nathan Ball Other [employer] Other 11-14-2022 15:00-0500 Diastolic blood pressure 72 mm[Hg] Nathan Ball Other [employer] Other 11-14-2022 15:00-0500 Respiratory rate 12 /min Nathan Ball Other [employer] Other 11-14-2022 15:00-0500 Systolic blood pressure 130 mm[Hg] Nathan Ball Other [employer] Other 05-29-2022 10:06-0400 Body height 166.4 cm Luis Mckenzie MD Work Phone: [facility] 05-29-2022 10:06-0400 Body temperature 97.59 [degF] Luis Mckenzie MD Work Phone: [facility] 05-29-2022 10:06-0400 Body weight 89.72 kg Luis Mckenzie MD Work Phone: [facility] 05-29-2022 10:06-0400 Diastolic blood pressure 50 mm[Hg] Luis Mckenzie MD Work Phone: [facility] 05-29-2022 10:06-0400 Heart rate 50 /min Luis Mckenzie MD Work Phone: [facility] 05-29-2022 10:06-0400 Respiratory rate 16 /min Luis Mckenzie MD Work Phone: [facility] 05-29-2022 10:06-0400 SaO2% (BldA) [Mass fraction] 96 % Luis Mckenzie MD Work Phone: [facility] 05-29-2022 10:06-0400 Systolic blood pressure 155 mm[Hg] Luis Mckenzie MD Work Phone: [facility] Encounters Encounter Date Encounter Type Care Provider Facility Start: 03-17-2025 End: 03-17-2025 Subsequent hospital visit by physician Laura Blair Echo/Vasc Room 2 Bill [facility] Comment on above: Essential hypertensi on; Palpitations Start: 02-25-2025 End: 02-25-2025 Bamboo flowsheet Reyna Esparza MD Work Phone: [facility] Start: 02-25-2025 End: 02-25-2025 Bamboo flowsheet Reyna Esparza MD Work Phone: [facility] Start: 02-25-2025 End: 02-25-2025 Office outpatient visit 15 minutes Reyna Esparza MD Work Phone: [facility] Comment on above: Nontoxic multinodula r goiter (CMS/HCC) (Primary Dx) Start: 02-25-2025 End: 02-25-2025 ambulatory REYNA ESPARZA Not Available Start: 02-12-2025 End: 02-12-2025 Emergency department patient visit Nathan Hathaway Facility:[facility] Start: 02-10-2025 End: 02-10-2025 Clinisync Result Encounter Reyna Esparza MD Work Phone: [facility] Unsolicited Start: 02-10-2025 End: 02-10-2025 Clinisync Result Encounter Reyna Esparza MD Work Phone: [facility] Unsolicited Start: 01-26-2025 End: 01-26-2025 ambulatory [facility] Amb[facility] Start: 01-22-2025 End: 01-22-2025 ambulatory Nathan Hathaway DO Work Phone: [facility] Work Phone: Start: 01-22-2025 End: 01-22-2025 Patient encounter procedure Nathan Hathaway DO Work Phone: [facility] Work Phone: Start: 01-12-2025 End: 01-12-2025 Office outpatient visit 25 minutes Holden Rosado PURIFICATION DIRECTOR-VAULT PERSON Work Phone: [facility] Comment on above: BMI 33.0-33.9,adult (Primary Dx); Essential hypertension; Palpitations; ASHD (arteriosclerotic heart disease); Mixed hyperlipidemia Start: 01-12-2025 End: 01-12-2025 ambulatory HOLDEN Lambert [facility] Ambulatory Start: 12-29-2024 End: 12-29-2024 ambulatory Nathan Ball DO Work Phone: [facility] Work Phone: Start: 12-29-2024 End: 12-29-2024 Patient encounter procedure Nathan Ball DO Work Phone: [facility] Work Phone: Start: 12-18-2024 Non-patient / Non-visit Benjam in Ball DO Work Phone: [facility] Work Phone: Start: 12-16-2024 End: 12-16-2024 Patient encounter procedure Nathan Ball DO Work Phone: [facility] Work Phone: Start: 11-25-2024 End: 11-25-2024 Bamboo fareed Esparza MD Work Phone: [facility] Start: 11-25-2024 End: 11-25-2024 Nidia Esparza MD Work Phone: [facility] Start: 11-25-2024 End: 11-25-2024 Office outpatient new 45 minutes Reyna Esparza MD Work Phone: [facility] Comment on above: Thyroid nodule (CMS/ HCC) (Primary Dx) Start: 11-25-2024 End: 11-25-2024 ambulatory REYNA ESPARZA Not Available Start: 11-19-2024 ambulatory Anthan Ball DO Work Phone: [facility] Work Phone: Start: 11-19-2024 Non-patient / Non-visit Benjam in Ball DO Work Phone: [facility] Work Phone: Start: 11-17-2024 End: 11-17-2024 Admission to same day surgery center Nathan Hathaway DO Work Phone: [facility] [place] Work Phone: Start: 11-17-2024 End: 11-17-2024 ambulatory Nathan Hathaway DO Work Phone: [facility] Work Phone: Start: 10-09-2024 End: 10-09-2024 Refill Mildred Tevinteresa COT Work Phone: [facility] Start: 10-08-2024 End: 10-08-2024 Office outpatient visit 25 minutes [facility] DO Work Phone: [facility] Comment on above: ASHD (arteriosclerot ic heart disease); Essential hypertension; BMI 33.0-33.9,adult; Former smoker; S/P PTCA (percutaneous transluminal coronary angioplasty); Mixed hyperlipidemia; 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 Work Phone: Start: 09-04-2024 Non-patient / Non-visit [facility] Work Phone: Start: 07-16-2024 End: 07-16-2024 ambulatory [facility] Work Phone: Start: 07-16-2024 End: 07-16-2024 Patient encounter procedure [facility] Work Phone: Start: 06-03-2024 End: 06-03-2024 ambulatory DO Nathan Hathaway Work Phone: [facility] Work Phone: Start: 06-03-2024 End: 06-03-2024 Patient encounter procedure DO Nathan Hathaway Work Phone: [facility] Work Phone: Start: 05-20-2024 Non-patient / Non-visit DO Natalio Hathaway Work Phone: [facility] Work Phone: Start: 04-30-2024 Non-patient / Non-visit DO Natalio Hathaway Work Phone: [facility] Work Phone: Start: 04-28-2024 End: 04-28-2024 ambulatory [facility]ER[facility] Not Available Start: 04-21-2024 End: 04-21-2024 Office outpatient visit 15 minutes Holden Rosado PURIFICATION DIRECTOR-VAULT PERSON Work Phone: [facility] Comment on above: Essential hypertensi on (Primary Dx); ASHD (arteriosclerotic heart disease); Mixed hyperlipidemia; BMI 32.0-32.9,adult Start: 04-21-2024 End: 04-21-2024 ambulatory [facility] Start: 03-12-2024 End: 03-13-2024 ambulatory [facility] Start: 03-12-2024 End: 03-12-2024 Subsequent hospital visit by physician Laura [facility] Comment on above: ASHD (arteriosclerot ic heart disease) Start: 03-05-2024 End: 03-05-2024 Patient encounter procedure DO Nathan Hathaway Work Phone: [facility] [place] Work Phone: Start: 03-05-2024 End: 03-05-2024 ambulatory DO Nathan Hathaway Work Phone: [facility] Work Phone: Start: 03-05-2024 End: 03-05-2024 Office outpatient visit 25 minutes Holden Lambert [place] PURIFICATION DIRECTOR-VAULT PERSON Work Phone: [facility] Comment on above: ASHD (arteriosclerot ic heart disease) (Primary Dx); Essential hypertension; Mixed hyperlipidemia; BMI 32.0-32.9,adult Start: 03-05-2024 End: 03-05-2024 ambulatory [facility] Start: 02-27-2024 End: 02-27-2024 Patient encounter procedure DO Nathan Ball Work Phone: [facility] Work Phone: Start: 02-21-2024 Non-patient / Non-visit DO Natalio pinzon Ball Work Phone: [facility] [employer] Work Phone: Start: 02-20-2024 Non-patient / Non-visit DO Natalio pinzon Ball Work Phone: [facility] Work Phone: Start: 02-19-2024 Non-patient / Non-visit DO Natalio gracein Ball Work Phone: [facility] Work Phone: Start: 02-18-2024 Non-patient / Non-visit DO Natalio pinzon Ball Work Phone: [facility] Work Phone: Start: 02-13-2024 End: 02-13-2024 ambulatory [facility] Work Phone: Start: 02-13-2024 End: 02-13-2024 Patient encounter procedure [facility] Work Phone: Start: 02-02-2024 Non-patient / Non-visit [facility] Work Phone: Start: 02-01-2024 End: 02-01-2024 ambulatory [facility] Work Phone: Start: 02-01-2024 End: 02-01-2024 Patient encounter procedure [facility] Work Phone: Start: 01-04-2024 End: 01-04-2024 ambulatory Nathan Ball Other [employer] Other Start: 01-04-2024 Telephone encounter Nathan Hathaway [facility] Start: 12-18-2023 Non-patient / Non-visit [facility] Work Phone: Start: 11-27-2023 End: 11-27-2023 ambulatory Nathan Ball Other [employer] Other Start: 11-27-2023 Telephone encounter Nathan [facility] Start: 11-05-2023 End: 11-05-2023 ambulatory NATHAN HATHAWAY Facility:[facility] Start: 11-02-2023 End: 11-02-2023 ambulatory Nathan Ball Other [employer] Other Start: 11-02-2023 Office outpatient vi sit 25 minutes Nathan Ball [facility] Start: 10-02-2023 End: 10-02-2023 ambulatory Nathan Ball Other [employer] Other Start: 10-02-2023 Office outpatient vi sit 25 minutes Nathan Ball [facility] Start: 09-26-2023 End: 09-26-2023 ambulatory Nathan Ball Other [employer] Other Start: 09-26-2023 Telephone encounter Nathan [facility] Start: 09-21-2023 End: 09-21-2023 ambulatory Nathan Ball Other [employer] Other Start: 09-21-2023 Telephone encounter Nathan Ball [facility] Start: 2023 End: 2023 ambulatory Nathan Ball Other [employer] Other Start: 2023 Telephone encounter Nathan Ball [facility] Start: 09-13-2023 End: 09-13-2023 ambulatory Nathan Ball Other [employer] Other Start: 09-13-2023 Telephone encounter Nathan Ball [facility] Start: 09-11-2023 End: 09-11-2023 ambulatory Nathan Ball Other [employer] Other Start: 09-11-2023 Office outpatient vi sit 15 minutes Nathan Ball [facility] Start: 08-16-2023 End: 08-16-2023 ambulatory Nathan Ball Other [employer] Other Start: 08-16-2023 Telephone encounter Nathan Ball [facility] Start: 07-31-2023 End: 07-31-2023 ambulatory Nathan Ball Other [employer] Other Start: 07-31-2023 Telephone encounter Nathan Ball [facility] Start: 07-30-2023 End: 07-30-2023 ambulatory Nathan Ball Other [employer] Other Start: 07-30-2023 Telephone encounter Nathan Ball [facility] Start: 07-19-2023 End: 07-19-2023 ambulatory Nathan Ball Other [employer] Other Start: 07-19-2023 Telephone encounter Nathan Ball [facility] Start: 07-18-2023 End: 07-18-2023 ambulatory Nathan Ball Other [employer] Other Start: 07-18-2023 Telephone encounter Nathan Ball [facility] Start: 07-17-2023 End: 07-17-2023 ambulatory Nathan Isabela Other [employer] Other Start: 07-17-2023 Nursing evaluation o f patient and report Nathan Hathaway [facility] Start: 06-28-2023 End: 06-28-2023 ambulatory Nathan Isabela Other [employer] Other Start: 06-28-2023 Telephone encounter Nathan Ball [facility] Start: 06-25-2023 End: 06-25-2023 ambulatory Nathan Ball Other [employer] Other Start: 06-25-2023 Telephone encounter Nathan Ball [facility] Start: 06-21-2023 End: 06-21-2023 ambulatory Nathan Isabela Other [employer] Other Start: 06-21-2023 Telephone encounter Nathan Ball [facility] Start: 06-19-2023 End: 06-19-2023 ambulatory Nathan Isabela Other [employer] Other Start: 06-19-2023 Telephone encounter Nathan Ball [facility] Start: 06-18-2023 End: 06-18-2023 ambulatory Nathan Ball Other [employer] Other Start: 06-18-2023 Telephone encounter Nathan Ball [facility] Start: 06-15-2023 End: 06-15-2023 ambulatory Nathan Ball Other [employer] Other Start: 06-15-2023 Telephone encounter Nathan Ball [facility] Start: 06-08-2023 End: 06-08-2023 ambulatory Nathan Ball Other [employer] Other Start: 06-08-2023 Office outpatient vi sit 15 minutes Nathan Hathaway [facility] Start: 06-06-2023 Telephone encounter Juan Rico Hematology/Oncology Comment on above: Results Start: 06-04-2023 End: 06-04-2023 ambulatory Luis Mckenzie MD Work Phone: [employer] Other Comment on above: Abnormal SPEP (Prima ry Dx); Anemia, unspecified type; Neuropathy - (NOS); Heart disease Start: 06-04-2023 End: 06-04-2023 Patient encounter procedure Luis Mckenzie MD Work Phone: [facility] Start: 06-04-2023 Telephone [address] Nathan Hathaway [facility] Start: 06-01-2023 End: 06-01-2023 ambulatory Nathan Hathaway Other [employer] Other Start: 06-01-2023 Telephone [address] Nathan Hathaway [facility] Start: 05-28-2023 End: 05-28-2023 ambulatory NATHAN HATHAWAY Facility:[facility] Start: 05-25-2023 End: 05-25-2023 ambulatory Nathan Hathaway Other [employer] Other Start: 05-25-2023 Transitional care julito stark srvc 14 day discharge Nathan Hathaway [facility] Start: 05-17-2023 End: 05-18-2023 Evaluation and management of inpatient DO Nathan Hathaway Work Phone: [facility] Work Phone: Start: 05-17-2023 End: 05-18-2023 observation encounter DO Nathan Hathaway Work Phone: [facility] Work Phone: Start: 05-16-2023 End: 05-16-2023 ambulatory Nathan Hathaway Other [employer] Other Start: 05-16-2023 Office outpatient vi sit 25 minutes Nathan Hathaway [facility] Start: 05-09-2023 End: 05-09-2023 ambulatory Nathan Ball Other [employer] Other Start: 05-09-2023 Office outpatient vi sit 25 minutes Nathan Ball [facility] Start: 05-09-2023 Telephone encounter Nathan E Ball Work Phone: [facility] [employer] 250 DO Work Phone: Start: 04-26-2023 End: 04-26-2023 ambulatory Nathan Ball Other [employer] Other Start: 04-26-2023 Office outpatient vi sit 25 minutes Nathan Ball [facility] Start: 04-26-2023 Telephone encounter Nathan Ball [facility] Start: 04-18-2023 End: 04-18-2023 ambulatory Nathan Ball Other [employer] Other Start: 04-18-2023 Office outpatient vi sit 25 minutes Nathan Ball [facility] Start: 04-18-2023 Telephone encounter Nathan Ball [facility] Start: 03-27-2023 End: 03-27-2023 ambulatory Nathan Ball Other [employer] Other Start: 03-27-2023 Telephone encounter Nathan Ball [facility] Start: 03-15-2023 End: 03-15-2023 ambulatory Nathan Ball Other [employer] Other Start: 03-15-2023 Office outpatient vi sit 25 minutes Nathan Ball [facility] Start: 03-09-2023 End: 03-09-[address] Edinson Perry [place] [employer] Other Start: 03-09-2023 Telephone encounter Nathan Ball [facility] Start: 03-09-2023 SURGNON, Provider: Edinson Perry, Status: Pen, Time: 10:00 AM Nathan E Ball Work Phone: [facility] [employer] 250 DO Work Phone: Start: 03-09-2023 End: 03-09-2023 Admission to same day surgery center DO Nathan Hathaway Work Phone: [facility] Work Phone: Start: 03-08-2023 End: 03-08-2023 ambulatory DO Nathan Hathaway Work Phone: [facility] Work Phone: Start: 03-08-2023 End: 03-08-2023 Patient encounter procedure DO Nathan Hathaway Work Phone: [facility] Work Phone: Start: 03-07-2023 Office consultation new/estab patient 80 min Nathan Hathaway Work Phone: [facility] 250 DO Work Phone: Start: 03-07-[address] Edinson Perry Facility: Start: 03-05-2023 End: 03-05-2023 ambulatory Nathan Hathaway Other [employer] Other Start: 03-05-2023 Telephone encounter [facility]ath[facility] Start: 03-01-2023 End: 03-02-[address] NATHAN HATHAWAY Facility:[facility] Start: 02-27-2023 End: 02-27-2023 ambulatory Nathan Hathaway Other [employer] Other Start: 02-27-2023 Telephone encounter [facility]ath[facility] Start: 02-20-2023 End: 02-20-2023 ambulatory Nathan Hathaway Other [employer] Other Start: 02-20-2023 Telephone encounter Nathan Hathaway [facility] Start: 02-14-2023 End: 02-14-2023 ambulatory Nathan Hathaway Other [employer] Other Start: 02-14-2023 Office outpatient vi sit 25 minutes Nathan Ball [facility] Start: 02-14-2023 Telephone encounter Nathan CHURCHILL [facility] Start: 02-11-2023 End: 02-11-2023 ambulatory Nathan Hathaway Other [employer] Other Start: 02-11-2023 Telephone encounter Nathan CHURCHILL [facility] Start: 02-08-2023 End: 02-09-2023 Evaluation and management of inpatient DR NATHAN HATHAWAY Facility:[facility] Start: 02-02-2023 End: 02-02-2023 ambulatory Nathan Hathaway Other [employer] Other Start: 02-02-2023 Office outpatient vi sit 25 minutes Nathan Hathaway [facility] Start: 01-08-2023 End: 01-09-[address] NATHAN HATHAWAY Facility: Start: 12-21-2022 End: 12-21-2022 ambulatory Nathan Hathaway Other [employer] Other Start: 12-21-2022 Telephone encounter Nathan CHURCHILL G [facility] Start: 12-20-2022 End: 12-20-2022 ambulatory Nathan Hathaway Other [employer] Other Start: 12-20-2022 Telephone encounter Nathan CHURCHILL G [facility] Start: 12-14-2022 End: 12-14-2022 ambulatory Nathan Hathaway Other [employer] Other Start: 12-14-2022 Patient encounter procedure Nathan Isabela [facility] Start: 12-04-2022 End: 12-04-2022 ambulatory NATHAN Chinyere HATHAWAY Facility:[facility] Start: 12-04-2022 End: 12-04-2022 ambulatory Luis Mckenzie MD Work Phone: Hematology/Oncology Comment on above: Abnormal SPEP (Prima ry Dx); Neuropathy - (NOS); Lung nodules Start: 12-04-2022 End: 12-04-2022 Patient encounter procedure Luis Mckenzie MD Work Phone: [facility] Start: 11-27-2022 End: 11-27-2022 ambulatory LUIS MCKENZIE Facility:[facility] Start: 11-23-2022 End: 11-23-2022 ambulatory Nathan Hathaway Other [employer] Other Start: 11-23-2022 Telephone encounter [facility] Hath[facility] Start: 11-16-2022 End: 11-17-[address] NATHAN HATHAWAY Facility:[facility] Start: 11-14-2022 End: 11-14-2022 ambulatory Nathan Hathaway Other [employer] Other Start: 11-14-2022 Office outpatient vi sit 25 minutes Nathan Hathaway [facility] Start: 09-11-2022 End: 09-12-[address] [...] Facility:[facility] Start: 12-13-2021 Adult health examination Lauri airam Isabela Other [employer] Other Procedures Date Procedure Procedure Detail Performing Clinician Start: 02-10-2025 Us soft tissue head & neck real time imge docm Reyna Esparza MD Work Phone: Start: 11-17-2024 [employer] Nathan B all DO Work Phone: Start: 03-12-2024 NUCLEAR STRESS TEST DAYANA ROSADO Start: 03-12-2024 Cv strs tst xers&/or rx cont ecg trcg only Holden Rosado PURIFICATION DIRECTOR-VAULT PERSON Work Phone: Start: 10-17-2023 History of placement of stent for coronary artery disease S/P coronary artery stent placement Holden Rosado PURIFICATION DIRECTOR-VAULT PERSON Work Phone: Start: 05-17-2023 CT angiography of thorax DO [employer] Work Phone: Start: 05-17-2023 Duplex scan of lower limb veins DO [employer] Work Phone: Start: 03-09-2023 CL Ivus Initial Vessel DO [employer] Work Phone: Start: 03-09-2023 CL LHC & COR Angio DO B [facility]alber[facility] Work Phone: Start: 03-09-2023 CL Stent 1st Vessel LAD VALERI DO [employer] Work Phone: Start: 03-09-2023 CL Stent 1st Vessel RCA VALERI DO [employer] Work Phone: Start: 08-28-2022 Ct abdomen & pelvis w/contrast material Luis Mckenzie MD Work Phone: Start: 08-28-2022 Ct thorax w/contrast material Luis Mckenzie MD Work Phone: Start: 05-29-2022 Adult depression screening assessment Luis Mckenzie MD Work Phone: Start: 11-22-2021 Adult depression screening assessment Luis Mckenzie MD Work Phone: Start: 11-11-2018 Screening for malign ant neoplasm of colon Nathan [facility] Other Start: 10-12-2017 Screening for osteoporosis Nathan [facility] Other Depression screening Benjami n Ball Other Hysterectomy Nathan E [facility] Work Phone: Screening for malign ant neoplasm of breast Nathan [facility] Other Screening for malign ant neoplasm of breast Nathan [facility] Other Total colonoscopy Nathan Hathaway Work Phone: Comment on above: 2012; Plan of Treatment Date Care Activity Detail Author Start: 11-05-2026 Diabetes Screening Diabetes Screening [facility] Start: 06-04-2026 DIABETES SCREEN DIABETES SCREEN [facility] Start: 11-27-2025 DIABETES SCREEN DIABETES SCREEN [facility] Start: 10-27-2025 End: 10-27-2025 Patient encounter procedure 10/27/2025 2:10 PM EST Office Visit [facility] [address] [place] [address] Edinson Perry DO [address] [place] [address] [facility] Start: 08-24-2025 DIABETES SCREEN DIABETES SCREEN [facility] Start: 05-22-2025 DIABETES SCREEN DIABETES SCREEN [facility] Start: 05-04-2025 COVID-19 Vaccine ( season) COVID-19 Vaccine ( season) [facility] Start: 04-29-2025 End: 04-29-2025 Patient encounter procedure 04/29/2025 9:30 AM EDT Office Visit [facility] [address] [place] [id number] Fercho Tse DO [address] [place] [address] [facility] Start: 03-17-2025 End: 03-17-2025 Patient encounter procedure 03/17/2025 10:45 AM EDT Appointment [facility] [address] [place] [address] [facility] Start: 02-25-2025 End: 02-25-2025 Patient encounter procedure [facility] Comment on above: Arrived Start: 01-26-2025 End: 01-26-2025 Professional / ancillary services management 01/26/2025 3:00 PM EDT Ancillary Procedure [facility] [address] [place] [address] [facility] Start: 01-12-2025 End: 01-12-2026 Holter monitor study Holter [employer] Social Worker Cardiac Services Routine Palpitations Expected: 01/12/2025 (Approximate), Expires: 01/12/2026 [facility] Service Area Work Phone: Comment on above: Expected: 01/12/2025 (Approximate), Expi res: 01/12/2026 Start: 01-12-2025 End: 01-12-2027 US Heart Transthoracic Transthoracic Echo Complete Echocardiography Routine Essential hypertension Palpitations Expected: 01/12/2025 (Approximate), Expires: 01/12/2027 [facility] Work Phone: Comment on above: Expected: 01/12/2025 (Approximate), Expi res: 01/12/2027 Start: 11-25-2024 End: 11-25-2024 Patient encounter procedure 11/25/2024 2:00 PM EST Office Visit [facility] [address] [facility] [address] [place] [phone] Reyna Esparza MD [address] [facility] [address] [place] [address] Arrived [facility] Comment on above: Arrived Start: 11-19-2024 Patient referral [facility] Work Phone: Start: 11-17-2024 [facility] Start: 11-17-2024 [facility] Start: 10-08-2024 End: 10-08-2024 Patient encounter procedure 10/08/2024 10:40 AM EST Office Visit [facility] [address] [place] [address] Edinson Perry DO [address] [place] [address] [facility] Start: 06-29-2024 Covid-19 Vaccine (7 - 2024-25 season) Covid-19 Vaccine () [facility] Start: 06-29-2024 Influenza vaccination [facility] Start: 04-21-2024 End: 04-21-2025 Basic metabolic 2000 panel - Serum or Plasma Basic Metabolic Panel Lab Routine ASHD (arteriosclerotic heart disease) Expected: 04/21/2024 (Approximate), Expires: 04/21/2025 [facility] Service Area Work Phone: Comment on above: Expected: 04/21/2024 (Approximate), Expi res: 04/21/2025 Start: 04-21-2024 End: 04-21-2024 Patient encounter procedure 04/21/2024 10:30 AM EDT Office Visit [facility] [address] [place] [phone] Holden Rosado, PURIFICATION DIRECTOR-VAULT PERSON [address] [place] [address] [facility] Start: 03-12-2024 End: 03-12-2024 Patient encounter procedure 03/12/2024 10:15 AM EDT Appointment [facility] [address] [facility] [address] [place] [id number] [facility] Start: 03-12-2024 End: 03-12-2024 Patient encounter procedure [facility] Start: 03-05-2024 End: 03-05-2025 Basic metabolic 2000 panel - Serum or Plasma Basic Metabolic Panel Lab Routine Essential hypertension Expected: 03/05/2024 (Approximate), Expires: 03/05/2025 [facility] Work Phone: Comment on above: Expected: 03/05/2024 (Approximate), Expi res: 03/05/2025 Start: 03-05-2024 End: 03-05-2026 NM Heart Perfusion W stress and W radionuclide IV Nuclear Stress Test Cardiac Nuclear Medicine Routine ASHD (arteriosclerotic heart disease) Expected: 03/05/2024 (Approximate), Expires: 03/05/2026 [facility] Service Area Work Phone: Comment on above: Expected: 03/05/2024 (Approximate), Expi res: 03/05/2026 Start: 02-09-2024 Echocardiography Echocardiogram [facility] Start: 10-29-2023 Advance Directive Discussion Advance Directive Discussion [facility] Start: 09-18-2023 FUV, Provider: Edinson Perry, Status: Pen, Time: 11:20 AM FUV, Provider: Edinson Perry, Status: Pen, Time: 11:20 AM [facility] [address] DO Work Phone: Start: 06-29-2023 COVID-19 Vaccine () COVID-19 Vaccine () [facility] Start: 06-29-2023 Influenza vaccination INFLUENZA (#1) [facility] Start: 05-29-2023 Adult depression screening assessment DEPRESSION SCREENING [facility] Start: 05-29-2023 FUV, Provider: Edinson Perry, Status: Pen, Time: 10:20 AM FUV, Provider: Edinson Perry, Status: Pen, Time: 10:20 AM [facility] Work Phone: Start: 05-18-2023 [facility] Start: 05-17-2023 Hospital admission [facility] Start: 03-09-2023 [facility] Start: 01-13-2023 COVID-19 VACCINE (6 - Pfizer series) COVID-19 VACCINE (6 - Pfizer series) [facility] Start: 11-22-2022 Adult depression screening assessment DEPRESSION SCREENING [facility] Start: 10-29-2022 ADVANCE DIRECTIVE DISCUSSION ADVANCE DIRECTIVE DISCUSSION [facility] Start: 10-29-2022 DEPRESSION ASSESSMENT DEPRESSION ASSESSMENT [facility] Start: 10-13-2022 COVID-19 Vaccine (3 - Pfizer risk series) COVID-19 Vaccine (3 - Pfizer risk series) [facility] Start: 06-29-2022 Influenza vaccination INFLUENZA (#1) [facility] Start: 03-25-2022 COVID-19 VACCINE (5 - Booster for Pfizer series) COVID-19 VACCINE (5 - Booster for Pfizer series) [facility] Start: 10-29-2021 ADVANCE DIRECTIVE DISCUSSION ADVANCE DIRECTIVE DISCUSSION [facility] Start: 10-29-2021 DEPRESSION ASSESSMENT DEPRESSION ASSESSMENT [facility] Start: 09-16-2021 Shingrix Vaccine (3 of 3) Shingrix Vaccine (3 of 3) [facility] Start: 09-16-2021 Zoster Vaccines (2 of 2) Zoster Vaccines (2 of 2) [facility] Start: 07-16-2021 SHINGRIX VACCINE (2 of 2) SHINGRIX VACCINE (2 of 2) [facility] Start: 2017 RSV High Risk: (Elderly (60+) or Population) (1 - 1-dose 75+ series) RSV High Risk: (Elderly (60+) or Population) (1 - 1-dose 75+ series) [facility] Start: 2017 RSV Vaccine (1 - 1-dose 75+ series) RSV Vaccine (1 - 1-dose 75+ series) [facility] Start: 07-17-2014 DTaP/Tdap/Td Vaccines (1 - Tdap) DTaP/Tdap/Td Vaccines (1 - Tdap) [facility] Start: 07-17-2014 Urine microalbumin profile DTaP,Tdap,Td Vaccine (1 - Tdap) [facility] Start: 2007 BONE DENSITY BONE DENSITY [facility] Start: 2007 PNEUMOCOCCAL: 65+ (1 - PCV) PNEUMOCOCCAL: 65+ (1 - PCV) [facility] Start: 2007 Screening for osteoporosis Bone Density Screening [facility] Start: 2002 RSV patients and/or patients aged 60+ years (1 - 1-dose 60+ series) RSV patients and/or patients aged 60+ years (1 - 1-dose 60+ series) [facility] Start: 1964 DTaP/Tdap/Td Vaccines (1 - Tdap) DTaP/Tdap/Td Vaccines (1 - Tdap) [facility] Start: 1961 Urine microalbumin profile DTAP,TDAP,TD (1 - Tdap) [facility] Start: 1960 Anxiety Screening Anxiety Screening [facility] Start: 1960 Depression Screening Depression Screening [facility] Start: 1960 Diabetes mellitus screening Diabetes Screening [facility] Start: 1942 Creatinine measurement Creatinine Level [facility] Start: 1942 Lipid panel Lipid Panel [facility] Start: 1942 Medicare Annual Wellness Visit Medicare Annual Wellness Visit (AWV) [facility] Start: 1942 Potassium measurement Potassium Level [facility] Start: 1942 Screening for osteoporosis Bone Density Scan [facility] Comprehensive metabo lic 2000 panel - Serum or Plasma [facility] End: 06-28-2023 Ct abdomen & pelvis w/contrast material CT ABD/PEL W IVCON Radiology Routine Disorder of adrenal gland (HCC) 1 Occurrences starting 05/29/2022 until 06/28/2023 [facility] Work Phone: Comment on above: 1 Occurrences starting 05/29/2022 until 06/28/2023 End: 06-28-2023 CT CHEST W IVCON CT CHEST W IVCON Radiology Routine Lung nodules 1 Occurrences starting 05/29/2022 until 06/28/2023 [facility] Work Phone: Comment on above: 1 Occurrences starting 05/29/2022 until 06/28/2023 Patient Education [facility] Work Phone: Patient referral [facility] Work Phone: End: 03-17-2025 US Heart Transthoracic [facility] Service Area Work Phone: Comment on above: Once for 1 Occurrences starting 03/17/20 until 03/17/2025 XR Knee - right 4 Views [facility] [place] [facility] [place] [facility], [place], operated by [facility] Immunizations Immunization Date Immunization Notes Care Provider Dara davis 07-16-2024 influenza, high dose seasonal, preservative-free [facility] 08-06-2023 influenza virus vaccine, unspecified formulation [facility] 08-06-2023 influenza, high dose seasonal, preservative-free Nathan Isabela Other [facility] [employer] Other 09-15-2022 COVID-19 Pfizer (Pediatric) Nathan Hathaway Other [facility] 09-15-2022 Pfizer COVID-19 Vac Bivalent 30 MCG/0.3ML Intramuscular Suspension Nathan Hathaway Work Phone: [facility] 08-11-2022 influenza virus vaccine, split virus (incl. purified surface antigen) Nathan Hathaway Other [facility] [employer] Other 08-11-2022 influenza virus vaccine, unspecified formulation [facility] 01-28-2022 COVID-19 mRNA, Comirnaty (Pfizer) DO Nathan Hathaway Work Phone: [facility] 01-28-2022 COVID-19 Pfizer Nathan Lucero viviana Other [facility] 07-30-2021 COVID-19 vaccine, ag e 12+ yr ([employer] [facility]) Luis Mckenzie MD Work Phone: [facility] 07-22-2021 zoster vaccine, live Benjami n Isabela Other [facility] 07-19-2021 influenza, high-dose , quadrivalent vaccine (FLUZONE HIGH DOSE QUADRIVALENT) Luis Mckenzie MD Work Phone: [facility] 07-18-2021 influenza virus vaccine, split virus (incl. purified surface antigen) Nathan Hathaway Other [facility] [employer] Other 07-18-2021 influenza virus vaccine, unspecified formulation [facility] 05-21-2021 zoster vaccine recombinant Luis Mckenzie MD Work Phone: [facility] 05-21-2021 zoster vaccine, live Benjami n Isabela Other [facility] 12-18-2020 COVID-19 vaccine, ag e 12+ yr ([employer] [facility]) Luis Mckenzie MD Work Phone: [facility] 11-27-2020 COVID-19 Vaccine Moderna - Documentation Purposes Only Nathan Hathaway Other [facility] 11-27-2020 COVID-19 vaccine, ag e 12+ yr ([employer] - PURPLE TOP) Luis Mckenzie MD Work Phone: [facility] 08-11-2020 influenza virus vaccine, split virus (incl. purified surface antigen) Nathan Hathaway Other [facility] [employer] Other 08-11-2020 influenza virus vaccine, unspecified formulation [facility] 07-09-2019 AS03 adjuvant Arrival Radiol ogy Work Phone: [facility] 07-09-2019 Seasonal trivalent influenza vaccine, adjuvanted, preservative free Luis Mckenzie MD Work Phone: [facility] 08-13-2018 AS03 adjuvant Arrival Radiol ogy Work Phone: [facility] 08-13-2018 influenza virus vaccine, split virus (incl. purified surface antigen) Nathan Hathaway Other [facility] [employer] Other 08-13-2018 influenza virus vaccine, unspecified formulation [facility] 08-13-2018 Seasonal trivalent influenza vaccine, adjuvanted, preservative free Luis Mckenzie MD Work Phone: [facility] 08-03-2017 influenza virus vaccine, split virus (incl. purified surface antigen) Nathan Hathaway Other [facility] [employer] Other 08-03-2017 influenza virus vaccine, unspecified formulation [facility] 08-03-2017 influenza, high dose seasonal, preservative-free Luis Mckenzie MD Work Phone: [facility] 07-13-2016 influenza virus vaccine, split virus (incl. purified surface antigen) Nathan Hathaway Other [facility] [employer] Other 07-13-2016 influenza virus vaccine, unspecified formulation [facility] 09-13-2015 pneumococcal conjuga te vaccine, 13 valent Nathan Hathaway Other [facility] 08-17-2015 influenza virus vaccine, split virus (incl. purified surface antigen) Nathan Hathaway Other [facility] [employer] Other 08-17-2015 influenza virus vaccine, unspecified formulation [facility] 07-16-2014 tetanus and diphther ia toxoids, adsorbed, preservative free, for adult use (5 Lf of tetanus toxoid and 2 Lf of diphtheria toxoid) Nathan Hathaway Other [facility] 07-09-2013 tetanus and diphther ia toxoids, adsorbed, preservative free, for adult use (5 Lf of tetanus toxoid and 2 Lf of diphtheria toxoid) Nathan Hathaway Other [facility] 08-11-2010 pneumococcal polysaccharide vaccine, 23 valent Nathan Hathaway Other [facility] Payers Date Payer Category Payer Medicare supplementa l policy (as second payer) A[employer] [id number] 2022 Unknown 2020 Private Health Insurance [facility] AARP SUPPLEMENT [id number] 2020-Present [phone] [address] [place] [address] Indemnity [id number] 2020 Private Health Insurance [id number] 2007 Medicare MEDICARE MEDICAR E A AND B [id number] 2007-Present [phone] [place] [address] Medicare [id number] 2007 Medicare [id number]. [id number] 1959 Medicare [id number] 2.16.840.1.112662.19 1959 Unknown [id number] 2.16.840.1.994597.19 1942 Unknown [id number] 2.16.840.1.547043.3.579. 2.593 1942 Unknown [id number] 2.16.840.1.095995.3.579. 2.593 1942 Unknown [id number] 2.16.840.1.726334.3.579. 2.593 1942 Unknown [id number] 2.16.840.1.714020.3.579. 2.593 1942 Unknown [id number] 2.16.840.1.267089.3.579. 2.593 1942 Unknown [id number] 2.16.840.1.886987.3.579. 2.593 1942 Unknown [id number] 2.16.840.1.027098.3.579. 2.593 1942 Unknown [id number] 2.16.840.1.097392.3.579. 2.356 1942 Unknown [id number] 2.16.840.1.611985.3.579. 2.356 1942 Unknown [id number] 2.16.840.1.523317.3.579. 2.1246 1942 Unknown [id number] 2.16.840.1.021887.3.579. 2.1246 1942 Unknown [id number] 2.16.840.1.320431.3.579. 2.1246 1942 Unknown [id number] 2.16.840.1.474781.3.579. 2.1246 1942 Unknown [id number] 2.16.840.1.729830.3.579. 2.1246 1942 Unknown [id number] 2.16.840.1.300464.3.579. 2.124 1942 Unknown [id number] 2.16.840.1.335998.3.579. 2.1244 1942 Unknown [id number] 2.16.840.1.442703.3.579. 2.124 1942 Unknown [id number] 2.16.840.1.763279.3.579. 2.1244 1942 Unknown [id number] 2.16.840.1.529429.3.579. 2.1244 1942 Unknown [id number] 2.16.840.1.787867.3.579. 2.1259 1942 Unknown [id number] 2.16.840.1.163912.3.579. 2.1259 1942 Unknown [id number] 2.16.840.1.440887.3.579. 2.1259 Medicare Medicare Outpatient [id number] Unknown [id number] Social History Date Type Detail Facility Start: 08-01-2021 End: 03-05-2024 Tobacco smoking status NHIS Ex-smoker [facility] End: 10-29-1992 History of tobacco use Cigarette Smoker [facility] Start: 08-01-2021 End: 03-05-2024 Tobacco use and exposure Smokeless tobacco non-user [facility] Start: 1940 Sex Assigned At Not on file C [facility] Start: 05-12-2022 End: 03-17-2025 Exposure to SARS-CoV-2 (event) Not sure [facility] End: 10-29-1992 History of tobacco use Current smoker [facility] Start: 06-04-2023 End: 01-12-2025 Sex Assigned At [facility] Start: 06-04-2023 End: 01-12-2025 No illicit drug use No illicit drug use [facility] Comment on above: 2 coffees in am and 1 coffee at hs; 1997; Start: 1940 Sex Assigned At Female F [facility] [place] Start: 06-04-2023 Alcohol intake Ex-drinker (finding) [facility] Adult Depression Screening Assessment 0 [facility] Start: 12-18-2023 Tobacco smoking stat us NHIS Never smoked tobacco (finding) [facility] Start: 03-05-2024 End: 01-12-2025 Alcoholic beverage intake Lifetime non-drinker (finding) [facility] Work Phone: Start: 09-11-2024 End: 01-22-2025 Sex Female (finding) [facility] Medical Equipment Procedure Code Equipment Code Equipment [...] Facility 05-18-2023 Functional status Patient at Baseline [facility] Work Phone: 03-09-2023 Functional status Patient at Baseline [facility] Work Phone: Mental Status Date Assessment Result Facility 05-18-2023 Cognitive function Cognitive Sta tus Patient at Baseline [facility] Work Phone: 03-09-2023 Cognitive function Cognitive Sta tus Patient at Baseline [facility] Work Phone: Clinical Notes 05-29-2022 to 02-10-2025 Reyna Esparza MD - 02/25/2025 9:00 AM EDTAssessment & Plan Note - Holden Rosado APRN-DANIELA - 01/12/2025 3:48 PM EDTAssessment & Plan Note - CINTIA Gallego - 01/12/2025 3:48 PM EDT Note Date & Type Note Facility 02-10-2025 History of Presen t illness Narrative Subjective Patient ID: Lashaun Joaquin is a 84 y.o. female who presents for Thyroid Nodule (Follow ultrasound [facility] 02/10/25) US shows an 11mm nodule that is unchanged and mult subcentimeter nodules. No family history on file. Active Ambulatory Problems Diagnosis Date Noted Dry eyes 04/28/2024 Epiretinal membrane (ERM) of left eye 04/28/2024 Blepharitis of upper and lower eyelids of both eyes 04/28/2024 Abnormal cardiovascular stress test 11/24/2024 Adrenal nodule ([facility] 11/24/2024 Anemia 11/24/2024 ASHD (arteriosclerotic heart disease) ([facility] 10/17/2023 Atrophic vaginitis 11/24/2024 BMI 33.0-33.9,adult 03/05/2024 Cervical spondylosis with radiculopathy 11/24/2024 Chronic bronchitis ([facility]) 11/24/2024 Chronic heart failure with preserved ejection fraction (HFpEF) ([facility] 11/24/2024 Chronic obstructive pulmonary disease with (acute) exacerbation ([facility]) 11/24/2024 Chronic venous insufficiency 11/24/2024 COVID 10/17/2023 Elevated serum immunoglobulin free light chain level 11/24/2024 Essential hypertension ([facility]) 10/17/2023 Flash pulmonary edema ([facility] 11/24/2024 Former smoker 10/17/2023 OMAR (generalized anxiety disorder) ([facility] 11/24/2024 Gastroesophageal reflux disease with esophagitis without hemorrhage 11/24/2024 Heart failure 11/24/2024 Palpitations 01/12/2025 Resolved Ambulatory Problems Diagnosis Date Noted No Resolved Ambulatory Problems Past Medical History: Diagnosis Date Arthritis Cataract Congestive heart failure (CHF) ([facility]) Coronary artery disease ([facility]) GERD (gastroesophageal reflux disease) Hypercholesteremia ([facility]) Hypertension ([facility]) Peripheral neuropathy Past Surgical History: Procedure Laterality [...] Dispense Refill albuterol HFA 90 mcg/act inhaler ALPRAZolam (Niravam) 0.25 MG disintegrating tablet Take 0.25 mg by mouth as needed at bedtime Anoro Ellipta 62.5-25 MCG/ACT aerosol powder USE 1 INHALATION BY MOUTH DAILY clopidogrel (Plavix) 75 MG tablet Entresto 24-26 MG tablet Take 1 tablet by mouth in the morning and 1 tablet in the evening. furosemide (Lasix) 20 MG tablet Take 20 [...] oral paste triamcinolone (Kenalog) 0.5 % cream [DISCONTINUED] fluticasone-salmeterol (Advair) 45-21 MCG/ACT inhaler Inhale 2 puffs in the morning and 2 puffs before bedtime. Rinse mouth with water after use to reduce aftertaste and incidence of candidiasis. Do not swallow. No current facility-administered medications on file prior to visit. Objective Last Recorded Vitals Vitals: 02/25/25 0846 BP: 118/59 Pulse: 72 ENT Physical Exam Constitutional Appearance: patient appears well-developed, well-nourished and well-groomed, Communication/Voice: communication appropriate for developmental age; vocal quality normal; Assessment/Plan Diagnoses and all orders for this visit: Nontoxic multinodular goiter (CMS/HCC) Stable MNG. Repeat US 6 mo and then annually if stable documented in this encounter [facility] 01-12-2025 Evaluation + Plan note Associated Problem(s): Cardiac and Vasculature January 2024 TTE LVEF greater than 55% Biatrial enlargement mild [facility] Work Phone: 01-12-2025 Miscellaneous Notes Associated Problem(s): Cardiac and Vasculature January 2024 TTE LVEF greater than 55% Biatrial enlargement mild Associated Problem(s): Hyperlipidemia High intensity statin January 2024 HDL 42, cholesterol 158 Associated Problem(s): ASHD (arteriosclerotic heart disease) March 09, 2023 Mid/proximal RCA PCI/Flippin 4x15mm & 4x18mm Proximal diagonal PCI/Willie 2.5 [...] Optimal in office documented in this encounter [facility] Work Phone: 01-12-2025 Evaluation + Plan note Associated Problem(s): Hyperlipidemia High intensity statin January 2024 HDL 42, cholesterol 158 [facility] Work Phone: 01-12-2025 Evaluation + Plan note Associated Problem(s): ASHD (arteriosclerotic heart disease) March 09, 2023 Mid/proximal RCA PCI/Willie 4x15mm & 4x18mm Proximal diagonal PCI/Willie 2.5 x 18 mm LAD 10% Circumflex normal LVEF 65% February 2024 MPI ischemia, EF 88% Current daily activity at 4 METS without concerning symptoms [facility] Work Phone: 01-12-2025 Evaluation + Plan note Associated Problem(s): Palpitations Reports fairly daily episodes of hearing my heart thumping going into my ears No prior documented A-fib or arrhythmia. Was taken off of carvedilol January 2024 hospitalization due to bradycardia [facility] Work Phone: 01-12-2025 Evaluation + Plan note Associated Problem(s): Essential hypertension Optimal in office [facility] Work Phone: 01-12-2025 History of Presen [...] heart disease) March 09, 2023 Mid/proximal RCA PCI/Flippin 4x15mm & 4x18mm Proximal diagonal PCI/Flippin 2.5 x 18 mm LAD 10% Circumflex [...] Echo (RODGERS, diastolic dysfunction) Holden Rosado MSN, PURIFICATION DIRECTOR-VAULT PERSON, PMHNP-[facility] [place], [place] Please excuse any errors in grammar or translation related to this dictation. Voice recognition software was utilized to prepare this document. documented in this encounter [facility] Work Phone: 01-12-2025 Instructions CINTIA Gallego [...] (RODGERS, diastolic dysfunction) documented in this encounter [facility] Work Phone: 11-25-2024 History of Presen t illness Narrative Subjective Patient ID: Lashaun Joaquin is a 84 y.o. female who presents for Thyroid Nodule Pt reports she had a thyroid US after being found to be mildly hypothyroid. US shows an 11mm mixed thyroid nodule. FNA performed that was [place] 1. No family H/O thyroid CA. No radiation exposure. Review of Systems All other systems reviewed and are negative. No family history on file. Active Ambulatory Problems Diagnosis Date Noted Dry eyes 04/28/2024 Epiretinal membrane (ERM) of left eye 04/28/2024 Blepharitis of upper and lower eyelids of both eyes 04/28/2024 Abnormal cardiovascular stress test 11/24/2024 Adrenal nodule ([facility] 11/24/2024 Anemia 11/24/2024 ASHD (arteriosclerotic heart disease) ([facility]) 10/17/2023 Atrophic vaginitis 11/24/2024 BMI 33.0-33.9,adult 03/05/2024 Cervical spondylosis with radiculopathy 11/24/2024 Chronic bronchitis ([facility]) 11/24/2024 Chronic heart failure with preserved ejection fraction (HFpEF) ([facility]) 11/24/2024 Chronic obstructive pulmonary disease with (acute) exacerbation ([facility]) 11/24/2024 Chronic venous insufficiency 11/24/2024 COVID 10/17/2023 Elevated serum immunoglobulin free light chain level 11/24/2024 Essential hypertension ([facility]) 10/17/2023 Flash pulmonary edema ([facility]) 11/24/2024 Former smoker 10/17/2023 OMAR (generalized anxiety disorder) ([facility]) 11/24/2024 Gastroesophageal reflux disease with esophagitis without hemorrhage 11/24/2024 Heart failure ([facility]) 11/24/2024 Resolved Ambulatory Problems Diagnosis Date Noted No Resolved Ambulatory Problems Past Medical History: Diagnosis Date Arthritis Cataract Congestive heart failure (CHF) ([facility]) Coronary artery disease ([facility]) GERD (gastroesophageal reflux disease) Hypercholesteremia ([facility]) Hypertension ([facility]) Peripheral neuropathy Past Surgical History: Procedure Laterality Date CATARACT EXTRACTION Bilateral 2009 COLONOSCOPY CORONARY ANGIOPLASTY WITH STENT PLACEMENT REFRACTIVE [...] in late December documented in this encounter [facility] 11-17-2024 Chief complaint+R mayito for visit Narrative [email or web address] November 17, 2024 9 :45am Referral Order November 19, 2024 12:33pm 3 month f/u-HIGH RISK December 16 10:20am UA, frequency, burning December 29, 2024 1 :19pm Reason for Visit Admit Date Thyroid nodule November 17, 2024 9 :45am ASHD (arteriosclerotic heart disease) [facility] 2024 10:20am Chronic bronchitis December 16, 2024 10:20am 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) December 16, 2024 10:20am Chronic kidney disease December 16 10:20am Chronic venous insufficiency December 162024 10:20am Essential hypertension December 16 10:20am Subclinical hypothyroidism November 10:20am Thyroid nodule December 16, 2024 10:20am [facility] Work Phone: 1(428) 105-238801-20-2025 Chief complaint+Reason for visit Narrative * Chief Complaint Admit Date [email or web address] November 17, 2024 9 :45am Referral Order November 19, 2024 1 2:33pm 3 month f/u-HIGH RISK December 16 10:20am UA, frequency, burning December 29, 2024 1 :19pm injured right knee yesterday January 22, 2025 9:51am Reason for Visit Admit Date Thyroid nodule November 17, 2024 9 :45am ASHD (arteriosclerotic heart disease) [facility] 2024 10:20am Chronic bronchitis December 16, 2024 10:20am 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) December 16, 2024 10:20am Chronic kidney disease December 16 10:20am Chronic venous insufficiency December 162024 10:20am Essential hypertension December 16 10:20am Subclinical hypothyroidism November 10:20am Thyroid nodule December 16, 2024 10:20am Chronic kidney disease January 22, 2025 9:51am Nocturnal leg cramps January 22, 2025 9: 51am Right knee pain January 22, 2025 9:5 1am [facility] Work Phone: 1(136) 792-679801-20-2025 Evaluation note* Diagnosis Onset Date Resolution Status Admit Date Thyroid nodule acute November 172024 9:45am ASHD (arteriosclerotic heart disease) acute December 16 10:20am Chronic bronchitis acute Februa 2024 10:20am Chronic heart failure with preserved ejection fraction (HFpEF) acute December 16 10:20am Chronic kidney disease acute Fe bruary 2024 10:20am Chronic venous insufficiency acute December 16, 2024 10:20am Essential hypertension acute Fe bruary 2024 10:20am Subclinical hypothyroidism acute December 16, 2024 10:20am Thyroid nodule acute November 292024 10:20am [facility] Work Phone: 1(540) 552-992501-20-2025 Evaluation note* Diagnosis Onset Date Resolution Status Admit Date Thyroid nodule acute November 172024 9:45am ASHD (arteriosclerotic heart disease) acute December 16 10:20am Chronic bronchitis acute Februa 2024 10:20am Chronic heart failure with preserved ejection fraction (HFpEF) acute December 16 025 10:20am Chronic kidney disease acute Fe bruary 2024 10:20am Chronic venous insufficiency acute December 16, 2024 10:20am Essential hypertension acute Fe bruary 2024 10:20am Subclinical hypothyroidism acute December 16, 2024 10:20am Thyroid nodule acute November 292024 10:20am Chronic kidney disease acute [facility] 2024 9:51am Nocturnal leg cramps acute Kofi 2024 9:51am Right knee pain acute December 9:51am [facility] Work Phone: 1(420) 453-792112-11-2024 History of Present illness Narrative* Edinson Bledsoe Orlando, DO - 10/08/2024 10:40 AM EST Subjective [...] diastolic heart failure. She was hospitalized at [place] we were not involved in this. Her medications were changed, cluck carvedilol was discontinued and Entresto was initiated. She has supranormal left ventricular function with ejection fraction of 88% and normal perfusion scan February 2023. She did undergo primary PCI proximal RCA and diagonal branch in February 2023 for subsequentnon-ST elevation NM event with preserved LV function. She is [...] Scribe Attestation By signing my name below, Racquel Cortez LPN, Scribe attest that this documentation has been prepared under the direction and in the presence of Shelbi Perry DO. Provider Attestation - Scribe documentation All medical record entries made by the Scribe were at my direction and personally dictated by me. Yulia reviewed the chart and agree that the record accurately reflects my personal performance of the history, physical exam, discussion and plan. [facility] 1(548) 924-486512-11-2024 Instructions* Patient Instructions* Racquel Olivera LPN - [...] Provided instructions on exercise. [facility] 1(302) 518-910611-14-2024 Evaluation note* Diagnosis Onset Date Resolution Status Admit Date Anemia acute September 11, 2024 10:16am ASHD (arteriosclerotic heart disease) acute September 11, 024 10:16am Chronic bronchitis acute Novemb er 2023 10:16am Chronic heart failure with preserved ejection fraction (HFpEF) acute September 11, 024 10:16am Chronic venous insufficiency acute September 11, 2024 10:16am Essential hypertension acute No vember 2023 10:16am OMAR (generalized anxiety disorder) a cute September 11, 2024 10:16am Hypercholesterolemia acute Nove mber 2023 10:16am Subclinical hypothyroidism acute September 11, 2024 10:16am [facility] Work Phone: 1(558) 352-588611-14-2024 Evaluation note* Diagnosis Onset Date Resolution Status Admit Date Anemia acute September 11, 2024 10:16am ASHD (arteriosclerotic heart disease) acute September 11, 2 024 10:16am Chronic bronchitis acute Novemb er 2023 10:16am Chronic heart failure with preserved ejection fraction (HFpEF) acute September 11, 2 024 10:16am Chronic venous insufficiency acute September 11, 2024 10:16am Essential hypertension acute No vember 2023 10:16am OMAR (generalized anxiety disorder) a cute September 11, 2024 10:16am Hypercholesterolemia acute Nove mber 2023 10:16am Subclinical hypothyroidism acute September 11, 2024 10:16am Thyroid nodule acute November 172024 9:45am [facility] Work Phone: 1(733) 748-945606-25-2024 Evaluation + Plan note* Assessment & Plan Note - CINTIA Gallego - 04/22/2024 11:58 AM EDTAssociated Problem(s): BMI 32.0-32.9,adult Reviewed the merits of healthy lifestyle choices on overall cardiovascular health. [facility] Work Phone: [phone]) 854-727306-25-2024 Evaluation + Plan note* Assessment & Plan Note - CINTIA Gallego - 04/22/2024 11:58 AM EDTAssociated Problem(s): Hyperlipidemia High intensity statin January 2024 HDL 42, cholesterol 158 [facility] Work Phone: [phone] Evaluation + Plan note* Assessment & Plan Note - CINTIA Gallego - 04/22/2024 11:58 AM EDTAssociated Problem(s): Essential hypertension Optimal in the office [facility] Work Phone: [phone] 611-279606-25-2024 Evaluation + Plan note* Assessment & Plan Note - CINTIA Gallego - 04/22/2024 11:58 AM EDTAssociated Problem(s): ASHD (arteriosclerotic heart disease) March 09, 2023 Mid/proximal RCA PCI/Flippin 4x15mm & 4x18mm Proximal diagonal PCI/Flippin 2.5 x 18 mm LAD 10% Circumflex normal LVEF 65% February 2024 MPI ischemia, EF 88% Current daily activity at 4 METS without concerning symptoms [facility] Work Phone: [phone]) 258-563906-25-2024 Miscellaneous Notes* Assessment & Plan Note - [...] RCA PCI/Willie 4x15mm & 4x18mm Proximal diagonal PCI/Flippin 2.5 x 18 mm LAD 10% Circumflex normal LVEF 65% February 2024 MPI ischemia, EF 88% Current daily activity at 4 METS without concerning symptoms documented in this [facility] Work Phone: [phone]) 584-153606-24-2024 History of Present illness Narrative* CINTIA Gallego [...] RCA PCI/Willie 4x15mm & 4x18mm Proximal diagonal PCI/Flippin 2.5 x 18 mm LAD 10% Circumflex [...] Dr. Perry 6 months Holden Rosado MSN, PURIFICATION DIRECTOR-VAULT PERSON, PMHNP-[facility] Please excuse any errors in grammar or translation related to this dictation. Voice recognition software was utilized to prepare this document. [facility] Work Phone: [phone]) 476-949706-24-2024 Instructions* Patient Instructions* CINTIA Gallego - 04/21/2024 [...] Dr. Perry 6 months [facility] Work Phone: [phone] Evaluation + Plan note* Assessment & Plan Note - CINTIA Gallego - 03/06/2024 10:42 AM EDTAssociated Problem(s): BMI 32.0-32.9,adult Reviewed the merits of healthy lifestyle choices on overall cardiovascular health. [facility] Work Phone: [phone]) 775-788505-09-2024 Evaluation + Plan note* Assessment & Plan Note - CINTIA Gallego - 03/06/2024 10:42 AM EDTAssociated Problem(s): Hyperlipidemia High intensity statin January 2024 HDL 42, cholesterol 158 [facility] Work Phone: [phone]) 381-299005-09-2024 Miscellaneous Notes* Assessment & Plan Note - [...] heart disease) March 09, 2023 Mid/proximal RCA PCI/Flippin 4x15mm & 4x18mm Proximal diagonal PCI/Willie 2.5 x 18 mm LAD 10% Circumflex normal LVEF 65% documented in [facility] Work Phone: [phone] 500-939905-09-2024 Evaluation + Plan note* Assessment & Plan Note - CINTIA Gallego - 03/06/2024 10:41 AM EDTAssociated Problem(s): Essential hypertension Optimal in office [facility] Work Phone: [phone]) [phone] Evaluation + Plan note* Assessment & Plan Note - CINTIA Gallego - 03/06/2024 10:41 AM EDTAssociated Problem(s): ASHD (arteriosclerotic heart disease) March 09, 2023 Mid/proximal RCA PCI/Flippin 4x15mm & 4x18mm Proximal diagonal PCI/Flippin 2.5 x 18 mm LAD 10% Circumflex normal LVEF 65% [facility] Work Phone: [phone] 472-719805-08-2024 History of Present illness Narrative* CINTIA Gallego [...] hypertension and bradycardia. She was seen by [facility]. Inpatient echo showed EF greater than [...] RCA PCI/Willie 4x15mm & 4x18mm Proximal diagonal PCI/Flippin 2.5 x 18 mm LAD 10% Circumflex [...] contact the office if new symptoms arise. 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 Voice recognition software was utilized to prepare this document. documented in this [facility] Work Phone: [phone]) 665-270305-08-2024 Instructions* Patient Instructions* CINTIA Gallego - 03/05/2024 [...] contact the office if new symptoms arise. 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 Author Type: Nurse Practitioner Type: [...] reactive to light, ext (more content not included)...[facility]01-05-2024 Evaluation note* Encounter Date Diagnosis Assessment [...] in remission (ICD-10 - F17.211) Continue abstinence [facility] Other 12-05-2023 Evaluation note* Encounter Date Diagnosis [...] and feet daily for blisters and ulcerations. [facility] Other 11-29-2023 Evaluation note* Encounter Date Diagnosis Assessment Notes Treatment Notes Treatment Clinical Notes Aug, Chronic venous insufficiency (ICD-10 - I87.2) [facility] Other 11-24-2023 Evaluation note* Encounter Date Diagnosis Assessment Notes Treatment Notes Treatment Clinical Notes Aug, Subacute cough (ICD-10 - R05.2) Aug, Dyspnea on exertion (ICD-10 - R06.09) [facility] Other 11-20-2023 Evaluation note* Encounter Date Diagnosis Assessment Notes Treatment Notes Treatment Clinical Notes Aug, Chronic venous insufficiency (ICD-10 - I87.2) [facility] Other 11-16-2023 Evaluation note* Encounter Date Diagnosis Assessment Notes Treatment Notes Treatment Clinical Notes Aug, Chronic venous insufficiency (ICD-10 - I87.2) [facility] Other 11-14-2023 Evaluation note* Encounter Date Diagnosis Assessment Notes Treatment Notes Treatment Clinical Notes Aug, Acute bronchitis due to other specified organisms (ICD-10 - J20.8) Instructed to use Robitussin or Mucinex for cough, saline or Flonase NS for congestion, Tylenol for pain and fever. 14 Aug, 2023 Chronic obstructive pulmonary disease with (acute) exacerbation (ICD-10 - J44.1) Begin using EDEL as needed to mobilize secretions. [facility] Other 10-19-2023 Evaluation note* Encounter Date Diagnosis Assessment Notes Treatment Notes Treatment Clinical Notes Jul, Aphthous ulcer (ICD-10 - K12.0) [facility] Other 09-20-2023 Evaluation note* Encounter Date Diagnosis Assessment Notes Treatment Notes Treatment Clinical Notes Jun, Dysuria (ICD-10 - R30.0) [facility] Other 09-19-2023 Evaluation note* Encounter Date Diagnosis Assessment Notes Treatment Notes Treatment Clinical Notes Jun, Dysuria (ICD-10 - R30.0) [facility] Other 08-28-2023 Evaluation note* Encounter Date Diagnosis Assessment Notes Treatment Notes Treatment Clinical Notes May, Chronic venous insufficiency (ICD-10 - I87.2) [facility] Other 08-24-2023 Evaluation note* Encounter Date Diagnosis Assessment Notes Treatment Notes Treatment Clinical Notes May, Primary insomnia (ICD-10 - F51.01) [facility] Other 08-21-2023 Evaluation note* Encounter Date Diagnosis Assessment Notes Treatment Notes Treatment Clinical Notes May, Diastolic hypertension (ICD-10 - I10) [facility] Other 08-18-2023 Evaluation note* Encounter Date Diagnosis Assessment Notes Treatment Notes Treatment Clinical Notes May, Primary hypertension (ICD-10 - I10) [facility] Other 08-18-2023 Evaluation note* Encounter Date Diagnosis Assessment Notes Treatment Notes Treatment Clinical Notes May, Diastolic hypertension (ICD-10 - I10) [facility] Other 08-11-2023 Evaluation note* Encounter Date Diagnosis [...] and feet daily for blisters and ulcerations. [facility] Other 08-09-2023 Miscellaneous Notes* Telephone Encounter - [...] can further discuss then. documented in this encounterChildren[facility]23 NoteHNO ID: [id number] Author: Luis Mckenzie MD Service: ? Author [...] breath and was hospitalized at [facility] and treated for suspected pneumonia. Apparently it was later felt she had heart disease, and cardiac catheterization revealed severe coronary artery disease. She subsequently underwent stent placement at [facility]. Apparently her shortness of breath persisted, and [...] extremities and face. Ne (more content not included)...[facility]08-07-2023 History of Present illness Narrative* Luis Mckenzie MD - 06/04/2023 7:38 AM EDT PATIENT NAME: Lashaun Joaquin DATE: 06/04/2023 PRIMARY CARE PHYSICIAN: Nathan Hathaway DO OTHER PHYSICIANS: Dr. Perry Portions of [...] breath and was hospitalized at [facility] and treated for suspected pneumonia. Apparently it was later felt she had heart disease, and cardiac catheterization revealed severe coronary artery disease. She dumont bsequently underwent stent placement at [facility]. Apparently her shortness of breath persisted, and [...] shortness of breath and was hospitalized at [facility] treated for suspected pneumonia. Apparently it was later felt she had heart disease, and cardiac catheterization revealed severe coronary artery disease. She subsequently underwent stent placement at [facility]. April 2023 she developed severe shortness of breath and was hospitalized at [facility] 05/17/2023with CHF. She improved with diuresis but [...] MD CC: Dr. Perry documented in this encounterChildren'[facility]07-28-2023 Evaluation note* Encounter Date Diagnosis Assessment Notes [...] dependence, cigarettes, in remission (ICD-10 - F17.211) [facility] Other 07-21-2023 Discharge summary Author Lj Ryan [facility] May 18, 2023 11:44am Note Date/Time May 18, 2023 11:4 4am [facility] [address] [place] [address] Discharge Summary Signed Patient: Lashaun Joaquin MR#: [id number] : 1940 Acct:[id number] Age/Sex: 82 / F Adm Date: 3 Loc: Room: [address] [place] [address]: Lj Ryan DO Copies to: DO Lj Prado DO~ Providers Date of Discharge: 05/18/23 Discharging [...] % (Auto) 73.6, Lymph % (Auto) 15.1, [place] % (Auto) 8.7, Eos % (Auto) 1.9, Baso % (Auto) 0.7, Nucleat RBC Rel Count 0.1, Neut # (Auto) 4.4, Lymph # (Auto) 0.9 L, [place] # (Auto) 0.5, Eos # (Auto) 0.1, [...] signed by Lj Ryan DO> 05/18/23 1144 [facility] Work Phone: [phone] 241-992507-20-2023 History and physical note Author Lj Ryan [facility] May 17, 2023 3:56pm Note Date/Time May 17, 2023 3:49 pm [facility] [address] [place] [address] Hospitalist H&P Signed Patient: Lashaun Joaquin MR#: [id number] : 1940 Acct:[id number] Age/Sex: 82 / F Adm Date: 3 Loc: 3T Room: [address] [place] [address] Type: ADM INOo Attending Dr: Lj Ryan [...] negative unless noted below or in HPI [facility] Medical History (Updated 05/17/23 @ 15:50 by [...] % (Auto) 9.3 % (.) 05/17/23 10:25 [place] % (Auto) 5.5 % (.) 05/17/23 10:25 Eos % (Auto) 0.5 % (.) 05/17/23 10:25 Baso % (Auto) 0.5 % (.) 05/17/23 10:25 Nucleat RBC Rel Count 0.0 /100 WBC (0-0.5) 05/17/23 10:25 Neut # (Auto) 8.6 x10E3/uL (1.8-7.7) H 05/17/23 10:25 Lymph # (Auto) 1.0 x10E3/uL (1.00-4.8) 05/17/23 10:25 [place] # (Auto) 0.6 x10E3/uL (0.0-0.8) 05/17/23 10:25 [...] 1 Documented By: Lj Ryan DO 05/17/23 1541 Signed By: <Electronically signed by Lj Ryan DO> 05/17/23 1556 [facility] Work Phone: [phone]) [phone] Evaluation note* Encounter Date Diagnosis Assessment Notes [...] [BMI ] 33.0-33.9, adult (ICD-10 - Z68.33) [facility] Other 07-12-2023 Evaluation note* Encounter Date Diagnosis [...] dependence, cigarettes, in remission (ICD-10 - F17.211) [facility] Other 06-29-2023 Evaluation note* Encounter Date Diagnosis Assessment Notes Treatment Notes Treatment Clinical Notes Mar, Paronychia of finger of right hand (ICD-10 - L03.011) [facility] Other 06-29-2023 Evaluation note* Encounter Date Diagnosis [...] healthy diet. Mar, Paresthesias (ICD-10 - R20.2) [facility] Other 06-21-2023 Evaluation note* Encounter Date Diagnosis [...] post PCI/stent placement. Continue for 12 months [facility] Other 06-21-2023 Evaluation note* Encounter Date Diagnosis Assessment Notes Treatment Notes Treatment Clinical Notes Mar, Chronic bronchitis, simple (ICD-10 - J41.0) [facility] Other 05-30-2023 Evaluation note* Encounter Date Diagnosis Assessment Notes Treatment Notes Treatment Clinical Notes February, Paresthesias (ICD-10 - R20.2) [facility] Other 05-18-2023 Evaluation note* Encounter Date Diagnosis [...] Titrate Gabapentin and monitor for fluid retention [facility] Other 05-08-2023 Evaluation note* Encounter Date Diagnosis Assessment Notes Treatment Notes Treatment Clinical Notes February, Primary hypertension (ICD-10 - I10) February, Chronic venous insufficiency (ICD-10 - I87.2) [facility] Other 04-19-2023 Evaluation note* Encounter Date Diagnosis [...] pain, change in appetite or bowel habits [facility] Other 04-16-2023 Evaluation note* Encounter Date Diagnosis [...] chronic diastolic heart failure (ICD-10 - I50.33) [facility] Other 04-07-2023 Evaluation note* Encounter Date Diagnosis [...] Diet and exercise with continued statin therapy. [facility] Other 02-23-2023 Evaluation note* Encounter Date Diagnosis Assessment Notes Treatment Notes Treatment Clinical Notes Nov, Primary insomnia (ICD-10 - F51.01) [facility] Other 02-16-2023 Evaluation note* Encounter Date Diagnosis [...] mammogram for breast cancer (ICD-10 - Z12.31) [facility] Other 02-06-2023 NoteHNO ID: [id number] Author: Luis Mckenzie MD Service: ? Author [...] respiratory effort, and percussion. (more content not included)...[facility]02-06-2023 History of Present illness Narrative* Luis [...] PCP. Luis Mckenzie MD documented in this encounterChildren[facility]01-17-2023 Evaluation note* Encounter Date Diagnosis Assessment Notes [...] drinking prior to bedtime. Weight loss. PPI [facility] Other 11-01-2022 Miscellaneous Notes* Telephone Encounter - [...] see her back as scheduled in November Pete, MARBIN documented in this encounterChildren[facility]10-31-2022 History of Present illness Narrative* Nancy Andrade [...] 28, 2022 TIME: 12:44 PM * Shirlene Miles RT(R) - 08/28/2022 12:15 PM EDT Radiology [...] 28, 2022 12:49 PM documented in this encounterChildren'[facility]08-01-2022 History of Present illness Narrative* Luis Mckenzie [...] PCP. Luis Mckenzie MD [facility] Narrative - Reported * LASHAUN JOAQUIN is being seen for a consultation for abnormal test(s) results. * 82-year-old female seen in cardiology consultation at the request of Dr. Natalio hathaway for recent episode of respiratory distress, what sounds like congestive heart failure associated with accelerated hypertension, was admitted to [place] briefly, diuresed approximately 14 pounds with diuretics. 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 noteNo InformationNort [employer] Other Evaluation noteNo assessment information available [facility] Work Phone: Evaluation note* Diagnosis Onset Date Resolution Status Flash pulmonary edema acute Heart failure acute Hypertension acute Hypertensive emergency acute Hypoxia acute [facility] Work Phone: Evaluation note* Diagnosis Abnormal SPEP- Primary Other nonspecific findings on examination of blood Anemia, unspecified type Neuropathy - (NOS) Heart disease Heart disease, unspecified documented in this encounter [facility]* Diagnosis Onset Date Resolution Status ASHD (arteriosclerotic heart disease) acute Chronic diastolic heart failure acute Chronic venous insufficiency acute Elevated cholesterol acute Essential hypertension acute OMAR (generalized anxiety disorder) acute Gastroesophageal reflux dise ase with esophagitis without hemorrhage acute 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 [facility] Work Phone: Evaluation note* Diagnosis Onset [...] tube dysfunction acute Right otitis media acute [facility] Work Phone: Evaluation note* Diagnosis ASHD (arteriosclerotic heart disease)- Primary Coronary atherosclerosis of unspecified type of vessel, mentasta or graft Essential hypertension Unspecified essential hypertension Mixed hyperlipidemia BMI 32.0-32.9,adult documented in this encounter [facility] Work Phone: Evaluation note* Diagnosis Onset [...] disorder) acute Subclinical hypothyroidism a [facility] Work Phone: Evaluation note* Diagnosis ASHD (arteriosclerotic heart disease) Coronary atherosclerosis of unspecified type of vessel, mentasta or graft documented in this encounter [facility] Work Phone: Evaluation note* Diagnosis Onset Date Resolution Status Anemia acute ASHD (arteriosclerotic heart disease) acute Chronic diastolic heart failure acute Chronic venous insufficiency acute Essential hypertension acute OMAR (generalized anxiety disorder) acute Subclinical hypothyroidism a [facility] Work Phone: Evaluation note* Diagnosis 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 Lung nodules Other nonspecific abnormal finding of lung field documented in this encounter [facility]* Diagnosis Onset Date Resolution Status Admit Date Anemia acute September 11, 2024 10:16am ASHD (arteriosclerotic heart disease) acute September 11, 024 10:16am Chronic bronchitis acute Novemb er 2023 10:16am Chronic heart failure with preserved ejection fraction (HFpEF) acute September 11, 2 024 10:16am Chronic venous insufficiency acute September 11, 2024 10:16am Essential hypertension acute No vember 2023 10:16am OMAR (generalized anxiety disorder) a cute September 11, 2024 10:16am Hypercholesterolemia acute Nove mber 2023 10:16am Subclinical hypothyroidism acute September 11, 2024 10:16am [facility] Work Phone: Evaluation note* Diagnosis Essential hypertension- Primary Unspecified essential hypertension ASHD (arteriosclerotic heart disease) Coronary atherosclerosis of unspecified type of vessel, mentasta or graft Mixed hyperlipidemia BMI 32.0-32.9,adult documented in this encounter [facility] Work Phone: Evaluation note* Diagnosis ASHD (arteriosclerotic heart disease)- Primary Coronary atherosclerosis of unspecified type of vessel, mentasta or graft Essential hypertension Unspecified essential hypertension Mixed hyperlipidemia BMI 32.0-32.9,adult Essential hypertension- Primary Unspecified essential hypertension ASHD (arteriosclerotic heart disease) Coronary atherosclerosis of unspecified type of vessel, mentasta or graft Mixed hyperlipidemia BMI 32.0-32.9,adult ASHD (arteriosclerotic heart disease) Coronary atherosclerosis of unspecified type of vessel, mentasta or graft Essential hypertension Unspecified essential hypertension BMI 33.0-33.9,adult Former smoker Personal history of tobacco use, presenting hazards to health S/P PTCA (percutaneous transluminal coronary angioplasty) Postsurgical percutaneous transluminal coronary angioplasty status Mixed hyperlipidemia Coronary arteriosclerosis after percutaneous transluminal coronary angioplasty (PTCA) documented in this encounter [facility] Work Phone: Evaluation note* Diagnosis Thyroid nodule (CMS/HCC)- Primary Nontoxic uninodular goiter documented [facility] this encounter [facility]* Diagnosis ASHD (arteriosclerotic heart disease)- Primary Coronary atherosclerosis of unspecified type of vessel, mentasta or graft Essential hypertension Unspecified essential hypertension Mixed hyperlipidemia BMI 32.0-32.9,adult Essential hypertension- Primary Unspecified essential hypertension ASHD (arteriosclerotic heart disease) Coronary atherosclerosis of unspecified type of vessel, mentasta or graft Mixed hyperlipidemia BMI 32.0-32.9,adult BMI 33.0-33.9,adult- Primary Essential hypertension Unspecified essential hypertension Palpitations ASHD (arteriosclerotic heart disease) Coronary atherosclerosis of unspecified type of vessel, mentasta or graft Mixed hyperlipidemia documented in this encounter [facility] Work Phone: Evaluation note* Diagnosis Nontoxic multinodular goiter (CMS/HCC)- Primary Nontoxic multinodular goiter [facility]* Diagnosis ASHD (arteriosclerotic heart disease)- Primary Coronary atherosclerosis of unspecified type of vessel, mentasta or graft Essential hypertension Unspecified essential hypertension Mixed hyperlipidemia BMI 32.0-32.9,adult Essential hypertension- Primary Unspecified essential hypertension ASHD (arteriosclerotic heart disease) Coronary atherosclerosis of unspecified type of vessel, mentasta or graft Mixed hyperlipidemia BMI 32.0-32.9,adult BMI 33.0-33.9,adult- Primary Essential hypertension Unspecified essential hypertension Palpitations ASHD (arteriosclerotic heart disease) Coronary atherosclerosis of unspecified type of vessel, mentasta or graft Mixed hyperlipidemia Essential hypertension Unspecified essential hypertension Palpitations documented in this encounter [facility] Work Phone: History general Narrative - [...] Colonoscopy 2012 Hospitalization History see surgical history [facility] Other History general Narrative - Reported* Type [...] diagonal br Hospitalization History see surgical history [facility] Other Hospital Discharge instructions Additional Instructions Please [...] to control your blood pressure in the hospital.[facility] Work Phone: Hospital Discharge instructionsAmbulatory Orders* Referral to ENT Time Frame: 11/19/24, Location: None Selected [facility] Work Phone: Reason for referral (narrative)* Consultation (Routine) - Authorized Specialty Diagnoses / Procedures Referred By Contac t Referred To Contact Cardiology Diagnoses ASHD (arteriosclerotic heart disease) Procedures Follow Up In Cardiology Holden Rosado APRN-CNP [address] [facility] 2, [place] [address] [place] [id number] Referral ID Status Reason Start Date Expiration Date V isits Requested Visits Authorized [id number] Authorized 03/05/2024 03/05/2025 1 1 * Cardiac Stress Testing (Routine) - Pending Review Specialty Diagnoses / Procedures Referred By Contac t Referred To Contact Radiology Diagnoses ASHD (arteriosclerotic heart disease) Procedures Nuclear Stress Test CHG MYOCARDIAL SPECT MULTIPLE STUDIES Holden Rosado APRN-CNP [facility] [facility] 2, [address] [address] Referral ID Status Reason Start Date Expiration Date V isits Requested Visits Authorized [id number] Pending Review 03/05/2024 03/05/2025 5 5 [facility] Work Phone: Reason for referral (narrative)* Consultation (Routine) - Authorized Specialty Diagnoses / Procedures Referred By Contac t Referred To Contact Cardiology Diagnoses ASHD (arteriosclerotic heart disease) Procedures Follow Up In Cardiology Holden Rosado APRN-CNP [address] [facility] [address], [address] [address] Referral ID Status Reason Start Date Expiration Date V isits Requested Visits Authorized [id number] Authorized 04/21/2024 04/21/2025 1 1 [facility] Work Phone: Reason for visit Narrative* CV Imaging (Routine) - Authorized Specialty Diagnoses / Procedures Referred By Isabelle t Referred To Contact Cardiology Diagnoses Essential hypertension Palpitations Procedures Transthoracic Echo Complete AR ECHO TTHRC R-T 2D W/WOM-MODE COMPL SPEC&COLR D Holden Rosado, PURIFICATION DIRECTOR-VAULT PERSON [address]03 [facility] 2, [address] [place] [address] Phone: tel: fax: Referral ID Status Reason Start Date Expiration Date Visits Requested Visits Authorized [id number] Authorized Perform Procedure 01/12/2025 01/12/2026 1 1 [facility] Work Phone: Advance Directives Documents on File Type Date Recorded 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 Advance Directive(s) 08/01/2021 12:55 PM A dvance Directives Documents on File Type Date Recorded 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 Advance Directive(s) 08/01/2021 12:55 PM A dvance Directives Advance Directive Response Recorded Date/ Time Advance Directives No March 07 1:03pm Advance Directive Response Recorded Date/ Time Advance Directives No March 07 3 12:03pm Reason for Referral Specialty Diagnoses / Procedures Referred By Isabelle quintanilla Referred To Contact CT IMAGING Diagnoses Lung nodules Procedures CT CHEST W IVCON DIAGNOSTIC COMPUTED TOMOGRAPHY THORAX W/CONTRAST Luis Mckenzie MD [address] [place] [address] [place] [address] Ct Imaging Referral ID Status Reason Start Date Expiration Date Visits Requested Visits Authorized [id number] Authorized Auto-Generat ed Referral 05/29/2022 06/28/2023 1 1 Specialty Diagnoses / Procedures Referred By Maria De Jesusac t Referred To Contact CT IMAGING Diagnoses Disorder of adrenal gland (HCC) Procedures CT ABD/PEL W IVCON CT ABD & PELVIS W/CONTRAST Luis Mckenzie MD [address] [place] [address] [place] [address] Ct Imaging Referral ID Status Reason Start Date Expiration Date Visits Requested Visits Authorized [id number] Authorized Auto-Generat ed Referral 05/29/2022 06/28/2023 1 1 Specialty Diagnoses / Procedures Referred By Contac t Referred To Contact Radiology Diagnoses ASHD (arteriosclerotic heart disease) Procedures Nuclear Stress Test CHG MYOCARDIAL SPECT MULTIPLE STUDIES Holden Rosado, PURIFICATION DIRECTOR-VAULT PERSON [address] [facility] 2, [address] [place] [address] Referral ID Status Reason Start Date Expiration Date V isits Requested Visits Authorized [id number] Pending Review 03/05/2024 03/05/2025 5 5 Specialty Diagnoses / Procedures Referred By Contac t Referred To Contact CT IMAGING Diagnoses Lung nodules Procedures CT CHEST W IVCON DIAGNOSTIC COMPUTED TOMOGRAPHY THORAX W/CONTRAST Luis Mckenzie MD [address] [place] [address] [place] [address] Referral ID Status Reason Start Date Expiration Date V isits Requested Visits Authorized [id number] Closed Auto-Generate d Referral 05/29/2022 06/28/2023 1 1 Specialty Diagnoses / Procedures Referred By Contac t Referred To Contact CT IMAGING Diagnoses Disorder of adrenal gland (HCC) Procedures CT ABD/PEL W IVCON CT ABD & PELVIS W/CONTRAST Luis Mckenzie MD [address] [place] [address] [place] [address] Referral ID Status Reason Start Date Expiration Date V isits Requested Visits Authorized [id number] Closed Auto-Generate d Referral 05/29/2022 06/28/2023 1 [...] neoplasm of lung Unknown Exposure to Agent Carbon Unknown brother Malignant neoplasm of colon Unknown [...] neoplasm of lung Unknown Exposure to Agent Carbon Unknown brother Malignant neoplasm of colon Unknown [...] neoplasm of lung Unknown Exposure to Agent Carbon Unknown brother Malignant neoplasm of colon Unknown [...] or prosecute any alcohol or drug abuse patient.[facility] the event this information is protected by the Federal Confidentiality of Alcohol and Drug Abuse Patient Records regulations: The Federal rules restrict any use of the information to criminally investigate or prosecute any alcohol or drug abuse patient.[facility] the event this information is protected by the Federal Confidentiality of Alcohol and Drug Abuse Patient Records regulations: The Federal rules restrict any use of the information to criminally investigate or prosecute any alcohol or drug abuse patient.[facility] the event this information is protected by the Federal Confidentiality of Alcohol and Drug Abuse Patient Records regulations: The Federal rules restrict any use of the information to criminally investigate or prosecute any alcohol or drug abuse patient.[facility] the event this information is protected by the Federal Confidentiality of Alcohol and Drug Abuse Patient Records regulations: The Federal rules restrict any use of the information to criminally investigate or prosecute any alcohol or drug abuse patient.[facility] the event this information is protected by the Federal Confidentiality of Alcohol and Drug Abuse Patient Records regulations: The Federal rules restrict any use of the information to criminally investigate or prosecute any alcohol or drug abuse patient.[facility] the event this information is protected by the Federal Confidentiality of Alcohol and Drug Abuse Patient Records regulations: The Federal rules restrict any use of the information to criminally investigate or prosecute any alcohol or drug abuse patient.[facility] Reason for Visit (unrecogniz ed section and content) Reason Comments Lab Orders Reason Comments abnormal spep Reason Comments Results Reason Comments Abnormal SPEP Reason Comments Follow-up bradycardia Specialty Diagnoses / Procedures Referred By Isabelle quintanilla Referred To Contact Radiology Diagnoses ASHD (arteriosclerotic heart disease) Procedures Nuclear Stress Test CHG MYOCARDIAL SPECT MULTIPLE STUDIES Holden Rosado, PURIFICATION DIRECTOR-VAULT PERSON 703 [facility] 2, [address] [place] [address] Referral ID Status Reason Start Date Expiration Date V isits Requested Visits Authorized [id number] Pending Review 03/05/2024 03/05/2025 5 [address] Specialty Diagnoses / Procedures Referred By Isabelle t Referred To Contact CT IMAGING Diagnoses Lung nodules Procedures CT CHEST W IVCON DIAGNOSTIC COMPUTED TOMOGRAPHY THORAX W/CONTRAST Luis Mckenzie MD [address] [place] [address] [place] [address] [place] [address] Referral ID Status Reason Start Date Expiration Date V isits Requested Visits Authorized [id number] Closed Auto-Generate d Referral 05/29/2022 06/28/2023 1 1 Reason Comments Follow-up Test resultx Specialty Diagnoses / Procedures Referred By Isabelle t Referred To Contact Cardiology Diagnoses ASHD (arteriosclerotic heart disease) Procedures Follow Up In Cardiology Edinson Perry DO 703 [facility] [address], [address] [place] [address] Holden Rosado, PURIFICATION DIRECTOR-VAULT PERSON 703 [facility] [address], [address] [address] Referral ID Status Reason Start Date Expiration Date V isits Requested Visits Authorized [id number] Authorized 10/17/2023 10/16/2024 1 1 Reason Comments Follow-up 6 month Specialty Diagnoses / Procedures Referred By Contac t Referred To Contact Cardiology Diagnoses ASHD (arteriosclerotic heart disease) Procedures Follow Up In Cardiology Holden Rosado, PURIFICATION DIRECTOR-VAULT PERSON 703 [facility] [address], [address] [address] Phone: tel: fax: Referral ID Status Reason Start Date Expiration Date V isits Requested Visits Authorized [id number] Authorized 04/21/2024 04/21/2025 1 1 Reason Onset Date Comments Med Refill 10/09/2024 Reason Comments Thyroid Nodule Specialty Diagnoses / Procedures Referred By Contac t Referred To Contact Otolaryngology Diagnoses Nontoxic single thyroid nodule (CMS/HCC) Procedures AR UNLISTED EVALUATION AND MANAGEMENT SERVICE Nathan Hathaway MD [address] [place] [address] Phone: tel: Reyna Esparza MD [address] [facility] [address] [place] [address] Phone: tel: fax: Referral ID Status Reason Start Date Expiration Date Visits Re quested Visits Authorized [id number] Closed 11/19/2024 05/18/2025 1 1 Reason Comments Follow-up 6 months Follow up f or Coronary Artery Disease Specialty Diagnoses / Procedures Referred By Contac t Referred To Contact Cardiology Diagnoses Essential hypertension Procedures Follow Up In Cardiology Edinson Perry DO 703 [facility] 2, [address] [address] Phone: tel: fax: Holden Rosado, PURIFICATION DIRECTOR-VAULT PERSON 703 [facility] [address], [address] [address] Phone: tel: fax: Referral ID Status Reason Start Date Expiration Date V isits Requested Visits Authorized [id number] Authorized 10/08/2024 10/08/2025 1 1 Reason Comments Thyroid Nodule Follow ultrasound TB H 02/10/25 Care Teams (unrecognized sec tion and content) Team Status: Active Member Role Status Hortencia Hathaway , DO Primary Care Provider Active Team Status: Inactive Member Role Status Hortencia Hathaway , DO Primary Care Provide r, Attending Provider Active Start: November 17, 2024 End: November 17, 2024 Team Status: Active Member Role Status Hortencia Hathaway DO Primary Care Provide r, Attending Provider Active Start: November 19, 2024 Team Status: Inactive Member Role Status Hortencia Hathaway , DO Primary Care Provide r, Attending Provider Active Start: December 16, 2024 End: December 16, 2024 Team Status: Active Member Role Status Hortencia Hathaway DO Primary Care Provide r, Attending Provider Active Start: December 18, 2024 Team Status: Inactive Member Role Status Hortencia Hathaway , DO Primary Care Provide r, Attending Provider Active Start: December 29, 2024 End: December 29, 2024 Team Status: Active Member Role Status Hortencia Hathaway DO Primary Care Provide r, Attending Provider Active Start: September 04, 2024 Team Status: Inactive Member Role Status Hortencia Hathaway , DO Primary Care Provide r, Attending Provider Active Start: September 11, 2024 End: September 11, 2024 Team Status: Active Member Role Status Hortencia Hathaway DO Primary Care Provide r, Attending Provider Active Start: September 12, 2024 Team Status: Inactive Member Role Status Hortencia Hathaway , DO Primary Care Provide r, Attending Provider [...] February 01, 2024 End: February 01, 2024 Fuel Pilot Engineer Relationship Specialty Start Date End Date Nathan Hathaway DO PCP - General Internal Medicine 01/31/12 Fuel Pilot Engineer Relationship Specialty Start Date End Date Nathan Hathaway DO PCP - General Internal Medicine 01/31/12 Fuel Pilot Engineer Relationship Specialty Start Date End Date Nathan Hathaway DO PCP - General Internal Medicine 01/31/12 Fuel Pilot Engineer Relationship Specialty Start Date End Date Nathan Hathaway DO PCP - General Internal Medicine 01/31/12 Team Status: Inactive Member Role Status Dates Jonna Perry DO Attending Provider Active Nathan Hathaway DO Primary Care Provider Active Team Status: Inactive Member Role Status Dates Nathan Hathaway DO Primary Care Provider Active Fernando Ch DO Emergency Provider Active Lj Ryan , DO Admit Provider, Attending Provider Active Fuel Pilot Engineer Relationship Specialty Start Date End Date Nathan Hathaway DO PCP - General Internal Medicine 01/31/12 Fuel Pilot Engineer Relationship Specialty Start Date End Date Nathan Hathaway DO PCP - General Internal Medicine 01/31/12 Team Status: Active Member Role Status Dates Nathan Hathaway DO Primary Care Provide r, Attending Provider Active Start: February 02, 2024 Team Status: Inactive Member Role Status Dates Nathan Hathaway DO Primary Care Provider Active Start: February 13, 2024 End: February 13, 2024 Deja Ppoe APRN GRINDER SET UP OPERATOR SURFACE-C Attending Provider Act babar Start: February 13, 2024 End: February 13, 2024 Fuel Pilot Engineer Relationship Specialty Start Date End Date Nathan [...] February 27, 2024 End: February 27, 2024 Fuel Pilot Engineer Relationship Specialty Start Date End Date Nathan Hathaway DO PCP - General Internal Medicine 10/03/23 Fuel Pilot Engineer Relationship Specialty Start Date End Date Nathan Hathaway DO PCP - General Internal Medicine 10/03/23 Fuel Pilot Engineer Relationship Specialty Start Date End Date Nathan Hathaway DO PCP - General Internal Medicine 10/03/23 Fuel Pilot Engineer Relationship Specialty Start Date End Date Nathan Hathaway DO PCP - General Internal Medicine 10/03/23 Fuel Pilot Engineer Relationship Specialty Start Date End Date Nathan Hathaway DO PCP - General Internal Medicine 01/31/12 Fuel Pilot Engineer Relationship Specialty Start Date End Date Nathan Hathaway DO PCP - General Internal Medicine 10/03/23 Fuel Pilot Engineer Relationship Specialty Start Date End Date Nathan Hathaway DO PCP - General Internal Medicine 10/03/23 Fuel Pilot Engineer Relationship Specialty Start Date End Date Nathan Hathaway MD [address] [place] [facility] [place] [id number] PCP - External PCP Internal Medicine 06/29/23 Fuel Pilot Engineer Relationship Specialty Start Date End Date Nathan Hathaway MD [address] [place] [address] PCP - External PCP Internal Medicine 06/29/23 Fuel Pilot Engineer Relationship Specialty Start Date End Date Nathan Hathaway MD [address] [place] [address] PCP - External PCP Internal Medicine 06/29/23 Fuel Pilot Engineer Relationship Specialty Start Date End Date Nathan Hathaway DO PCP - General Internal Medicine 10/03/23 Team Status: Inactive Member Role Status Dates Nathan Hathaway DO Primary Care Provide r, Attending Provider Active Start: January 22, 2025 End: January 22, 2025 Fuel Pilot Engineer Relationship Specialty Start Date End Date Nathan Hathaway MD [address] [place] [id number] PCP - General Internal Medicine 02/10/25 Fuel Pilot Engineer Relationship Specialty Start Date End Date Nathan Hathaway DO [address] [place] [address] PCP - General Internal Medicine 02/10/25 Fuel Pilot Engineer Relationship Specialty Start Date End Date Nathan Hathaway DO [address] [place] [id number] PCP - General Internal Medicine 02/10/25 Fuel Pilot Engineer Relationship Specialty Start Date End Date Nathan Hathaway DO [address] [place] [address] PCP - General Internal Medicine 03/09/25 INFORMATION SOURCE (unrecogn ized section and content) DATE CREATED AUTHOR 03/08/2023 [facility] DATE CREATED AUTHOR AUTHOR'S ORGANIZ ATION 03/09/2023 [employer] DATE CREATED AUTHOR AUTHOR'S ORGANIZ ATION 03/11/2023 [facility] DATE CREATED AUTHOR AUTHOR'S ORGANIZ ATION 11/08/2023 [facility] DATE CREATED AUTHOR AUTHOR'S ORGANIZ ATION 03/17/2024 [facility] DATE CREATED AUTHOR AUTHOR'S ORGANIZ ATION 02/07/2025 [facility] DATE CREATED AUTHOR AUTHOR'S ORGANIZ ATION 02/14/2025 [facility] DATE CREATED AUTHOR AUTHOR'S ORGANIZ ATION 02/26/2025 [facility] EPIC Goals (unrecognized section [...] BE BASED ON THE PRIMARY CLINICAL RECORDS. [facility] [email or web address] [facility]. provides no warranty or guarantee of the accuracy or completeness of information in this document.
[2025-03-18 10:27] LABS: Anion Gap 13.7; BUN Creatinine Ratio 20.6; Calcium 8.9 mg/dL (8.5-10.1); Carbon Dioxide 30.7 mmol/L (21.0-32.0); Chloride 105 mmol/L (98-107); Estimated GFR (African America 37 (>=60 mL/min/1.73m^2); Estimated GFR (Non-African Ame 31 (>=60 mL/min/1.73m^2); Glucose 112 mg/dL (74-106); Potassium 4.4 mmol/L (3.5-5.1); Sodium 145 mmol/L (136-145); TSH W/ REFLEX FT4 3.657 uIU/mL (0.358-3.740)
== END 2025-03-18 09:21 | disposition home or self-care (01) ==
LOC: LAB 09:23
PROVIDERS: PCP Internal Medicine; Visit Provider Internal Medicine
DX: I87.2 Venous insufficiency (chronic) (peripheral) (principal); E03.8 Other specified hypothyroidism
CPT/HCPCS: 36415; 80048; 84443

== ENCOUNTER 2025-06-23 06:55 | Outpatient (OUT) | payer MEDICARE, SELFPAY ==
--- OUTSIDE RECORDS SUMMARY | 2025-06-19 06:28 | XMS_ITS | Continuity of Care Document ---
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 Name Role Phone Fransico Nathan REILLY Primary Care Provider Nathan Bateman DO Attending Provider Care Teams Patient Care Team Team Status: Active Member Role Status Dates Nathan Bateman DO Primary Care Provider Active Visit Care Team Team Status: Inactive Member Role Status Dates Nathan Bateman DO Primary Care Provider Active Start: May 19, 2025 End: May 19, 2025 Nathan Bateman DO Attending Provider Active Sta rt: May 19, 2025 End: May 19, 2025 Patient Care Team Team Status: Inactive Member Role Status Dates Nathan Bateman DO Primary Care Provider Active Start: June 19, 2025 End: June 19, 2025 Nathan Bateman DO Attending Provider Active Sta rt: June 19, 2025 End: June 19, 2025 Chief Complaint and Reason for Visit Chief Complaint Admit Date ear pain, chest burning, cough April 3:17pm wellness/3 mo f/u June 19, 2025 9: 23am Reason for Visit Admit Date Acute bronchitis due to other specified organisms May 19, 2025 3:17pm Acute exacerbation of chronic obstructiv e airways disease May 19, 2025 3:17pm ASHD (arteriosclerotic heart disease) Au 2024 9:23am Chronic bronchitis June 19, 2025 9: 23am Chronic kidney disease June 19, 2025 9:23am Chronic venous insufficiency May 9:23am Essential hypertension June 19, 2025 9:23am OMAR (generalized anxiety disorder) Augus t 2024 9:23am Gastroesophageal reflux dise ase with esophagitis without hemorrhage June 19, 2025 9:23am Hypercholesterolemia June 19, 2025 9 :23am 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) June 19, 2025 9:23am Obesity June 19, 2025 9: 23am Screening mammogram for breast cancer Au aminata 2024 9:23am Subclinical hypothyroidism June 19, 2025 9:23am Thyroid nodule June 19, 2025 9: 23am Acute on chronic heart failu re with preserved ejection fraction (HFpEF) June 19, 2025 9:23am Medicare annual wellness visit, subseque nt June 19, 2025 9:23am Allergies, Adverse Reactions, Alerts Allergen Type Severity Reaction Last Updated Verified Status Comments amlodipine Allergy Unknown Unknown Reaction June 19, 2025 9:32am Yes Active amoxicillin Allergy Unknown Unknown Reaction June 19, 2025 9:32am Yes Active azithromycin Allergy Unknown rash June 19, 2025 9:32am Yes Active codeine Allergy Unknown Unknown Reaction June 19, 2025 9:32am Yes Active doxycycline Allergy Unknown Unknown Reaction June 19, 2025 9:32am Yes Active duloxetine Allergy Unknown Unknown Reaction June 19, 2025 9:32am Yes Active guaifenesin Allergy Unknown Unknown Reaction June 19, 2025 9:32am Yes Active levofloxacin Allergy Unknown Unknown Reaction June 19, 2025 9:32am Yes Active ondansetron Allergy Unknown Unknown Reaction June 19, 2025 9:32am Yes Active Onset Date: 10/29/2019 sulfamethoxazole Allergy Unknown Unknown Reaction June 19, 2025 9:32am Yes Active tetanus and diphtheria toxoids Allergy Unknown Unknown Reaction June 19, 2025 9:32am Yes Active Penicillins Allergy Unknown Rash June 19, 2025 9:32am Yes Active 12 Hour Decongestant Allergy Unknown Unknown Reaction February 01, 2024 10:52am No Active Onset Date: 10/29/2019 Cheratussin AC *COUGH/COLD/ALL Allergy Unknown Unknown Reaction February 01, 2024 10:52am No Active Free Text Allergy: Cheratussin AC *COUGH/COLD/A LLERGY*; Onset Date: 10/29/2019 Social History Smoking Status Status Start Date End Date Date of Observa tion Never smoked tobacco (finding) February 12, 2025 6:48am Observation Status Observation Response Date of Response Legal Sex Female (finding) Sex Assigned At Female August [id number] Family History Relationship Condition Age at Onset Recorded Date/T jerzy brother Type 2 diabetes mellitus Unknown Heart disease Unknown father Myocardial infarction Unknown Heart disease Unknown mother History of implantab le cardioverter-defibrillator (ICD) insertion Unknown Heart disease Unknown brother Malignant neoplasm of kidney Unknown sister Multiple sclerosis Unknown Leukemia Unknown brother Malignant neoplasm of lung Unknown Exposure to Agent Gregory Unknown brother Malignant neoplasm of colon Unknown brother Malignant neoplasm of urinary bladder Unk nown brother Malignant neoplasm of lung Unknown brother Malignant neoplasm Unknown father Unknown mother Unknown Problems Active Problems Medical Problem Onset Date Status Comments 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) Unknown Active - LHC w/ PCI/s tent LAD, RCA (Feb, 2023)- Echo w/ LVEF 60%, ELY, normal RV size/function, RVSP 41 - 01/2024,Echo: LVEF 60-65%, normal RV size/function, mild-mod MR - 02/2025 Cervical spondylosis with radiculopathy Unknown A ctive Gastroesophageal reflux dise ase with esophagitis without hemorrhage Unknown Active Primary insomnia Unknown Active OMAR (generalized anxiety disorder) Unknown Active Nocturnal leg cramps Unknown Active Screening mammogram for breast cancer Unknown Act babar Menopause Unknown Active Thyroid nodule Unknown Active US: right 16m m TR4, left 5-7mm TR4 - 08/2024,FNA: right nodule - 11/17/24,US: no change - 01/2025 Subclinical hypothyroidism Unknown Active Elevated serum immunoglobuli n free light chain level Unknown Active Anemia Unknown Active Adrenal nodule Unknown Active Hypercholesterolemia Unknown Active Chronic kidney disease Unknown Active Restless leg syndrome Unknown Active Essential hypertension Unknown Active MGUS (monoclonal gammopathy of unknown significance) Unknown Active Irritable bowel syndrome with diarrhea Unknown Ac tive Right knee pain Unknown Active Chronic venous insufficiency Unknown Active Chronic bronchitis Unknown Active Obesity Unknown Active ASHD (arteriosclerotic heart disease) Unknown Act babar LHC w/ PCI/stent LAD, RCA (Feb, 2023) Inactive/Resolved Problems Medical Problem Onset Date Status Comments Hypertensive emergency Unknown Resolved Probl em List clean-up per request of Phys. EHR Cmte Tendinitis, de Quervain's Unknown Resolved Heart palpitations Unknown Resolved Heart failure Unknown Resolved Problem List c lean-up per request of Phys. EHR Cmte Hyperlipidemia Unknown Resolved Problem List clean-up per request of Phys. EHR Cmte Flash pulmonary edema Unknown Resolved Proble m List clean-up per request of Phys. EHR Cmte Abnormal cardiovascular stress test Unknown Resol ryan Problem List clean-up per request of Phys. EHR Cmte Hypoxia Unknown Resolved Problem List cl dann-up per request of Phys. EHR Cmte Hypertension Unknown Resolved Problem List cl dann-up per request of Phys. EHR Cmte ASHD (arteriosclerotic heart disease) Unknown Resolved Problem List clean-u p per request of Phys. EHR Cmte Medications Medication Status Dose Units Route Directions Qty Days St art Date Stop Date End Date Instructions Adherence Rosuvastati n 40 mg tablet Discont inued 40 MG PO Daily February 02, 2024 12:00a m February 06, 2024 12:11 pm Rosuvastati n 40 mg tablet Discont inued 40 MG PO Daily 90 February 06, 2024 12:11p m February 06, 2024 12:12 pm Rosuvastati n 40 mg tablet Discont inued 40 MG PO Daily 30 February 06, 2024 12:11p m Octua 2024 8:24a m Carvedilol 3.125 mg tablet Discont inued 0 .ROUTE .COMPLEX 180 February 11, 2024 7:04am February 26, 2024 10:53 am TAKE 1 TABLET BY MOUTH TWICE DAILY WITH FOOD Sacubitril- Valsartan (Entresto) 24-26 mg tablet Discont inued 1 TAB PO Twice daily 60 March 19, 2024 2:53pm Decem 2023 1:42p m Nifedipine 30 mg tablet extended release 24hr Discont inued 30 MG PO Daily March 19, 2024 2:54pm Febru daniel 2024 12:38 pm Temazepam 15 mg capsule Discont inued 15 MG PO Daily at bedtime June 13, 2024 2:13pm Novem rajani 2023 11:19 pm Clopidogrel 75 mg tablet Active 75 MG PO Daily June 16, 2024 11:42a m Complies with drug therapy Gabapentin 100 mg capsule Active 0 .ROUTE .COMPLEX 180 Octobe r 2023 9:28am TAKE 1 CAPSULE BY MOUTH TWICE DAILY Complies with drug therapy Temazepam 15 mg capsule Discont inued 15 MG PO Daily at bedtime 90 90 Novemb er 2023 11:18p m January 29, 2025 10:20 pm Alprazolam 0.25 mg tablet Discont inued 0.25 MG PO Twice daily as needed for anxiety 180 90 Novemb er 2023 3:19pm January 29, 2025 10:20 pm Furosemide 20 mg tablet Discont inued 0 .ROUTE .COMPLEX 180 Decemb er 2023 1:59pm Febru [email or web address] 5:28p m TAKE 1 TABLET BY MOUTH 1 TO 2 TIMES DAILY NEEDED Valsartan 80 mg tablet Active 80 MG PO Daily Decemb er 2023 1:00am Complies with drug therapy Rosuvastati n 40 mg tablet Active 0 .ROUTE .COMPLEX 90 2024 8:24am TAKE 1 TABLET BY MOUTH DAILY Complies with drug therapy Pantoprazol e 40 mg tablet,[place] yed release (DR/EC) Active 0 .ROUTE .COMPLEX 90 2024 8:28am TAKE 1 TABLET BY MOUTH DAILY ON AN EMPTY STOMACH FOLLOWED IN 1/2 HOUR BY BREAKFAST Complies with drug therapy Fluticasone Propion-Abel meterol (Advair Hfa) 115-21 mcg/actuati on HFA aerosol inhaler Discont inued 2 PUFF INHALA TION Every 12 hours 2024 10:19a m February 12, 2025 6:38a m On Hold: None Albuterol Sulfate 90 mcg/actuati on HFA aerosol inhaler Active 2 PUFF INHALA TION Every 6 hours as needed for shortness of breath or wheezing 8.5 2024 10:19a m Complies with drug therapy Furosemide 20 mg tablet Discont inued 20 MG PO .COMPLEX 180 2024 5:26pm Febru 2024 2:17p m 20 mg orally BID on Sunday, Sunday, , Sunday; daily on Sunday, Sunday, Sunday Furosemide 20 mg tablet Discont inued 20 MG PO Twice daily 180 2024 2:16pm February 12, 2025 7:05a m Budesonide- Formoterol 160-4.5 mcg/actuati on HFA aerosol inhaler Discont inued 2 PUFF INHALA TION Every 12 hours 10.2 December 29, 2024 1:00am December 29, 2024 2:01p m Budesonide- Formoterol 160-4.5 mcg/actuati on HFA aerosol inhaler Discont inued 2 PUFF INHALA TION Every 12 hours 30.6 December 29, 2024 1:00am December 31, 2024 10:26 am Budesonide- Formoterol 160-4.5 mcg/actuati on HFA aerosol inhaler Discont inued 2 PUFF INHALA TION Every 12 hours 30.6 December 31, 2024 10:25a m February 12, 2025 7:33p m Alprazolam 0.25 mg tablet Discont inued 0.25 MG PO Twice daily 180 January 29, 2025 10:19p m February 12, 2025 7:05a m Temazepam 15 mg capsule Active 15 MG PO Daily at bedtime 90 January 29, 2025 10:20p m Complies with drug therapy Leslieeclitruongiu jono-Kennethantero l (Anoro Ellipta) 62.5-25 mcg/actuati on blister with device Discont inued 1 INH INHALA TION Daily 60 February 12, 2025 12:00a m March 13, 2025 1:20p m Nystatin 100,000 unit/mL suspension Discont inued 5 ML PO Four times daily 140 February 16, 2025 12:00a m March 19, 2025 11:47 am swish for 30 seconds and swallow Umeclidiniu m-Vilantero l (Anoro Ellipta) 62.5-25 mcg/actuati on blister with device Discont inued 1 INH INHALA TION Daily 60 March 13, 2025 9:43am March 13, 2025 1:43p m Umeclidiniu m-Kennethantero l (Anoro Ellipta) 62.5-25 mcg/actuati on blister with device Discont inued 1 INH INHALA TION Daily 180 90 May 15, 2025 11:55a m May 19, 2025 4:04p m Multivitami n Tablet Discont inued 1 TAB PO Daily March 08, 2023 12:00a m May 17, 2023 10:50 am Pravastatin 40 mg tablet Discont inued 40 MG PO Every evening March 08, 2023 12:00a m February 02, 2024 12:10 pm Nitroglycer in 0.2 mg/hr patch 24 hour Discont inued 0.2 MG TRANSD ERML Daily March 08, 2023 12:00a m May 17, 2023 10:50 am Potassium Chloride 10 mEq tablet extended release Discont inued 10 MEQ PO EVERY 3 WEEKS March 08, 2023 12:00a m April 22, 2024 1:22p m 3 times a week on even days Aspirin 81 mg Tablet,[place] yed Release (Dr/Ec) Discont inued 81 MG PO Every morning March 08, 2023 12:00a m February 27, 2024 10:01 am Carvedilol 3.125 mg tablet Discont inued 3.125 MG PO Twice daily March 08, 2023 12:00a m May 18, 2023 11:39 am Alprazolam 0.25 mg tablet Discont inued 0.25 MG PO Three times daily as needed for Anxiety March 08, 2023 12:00a m January 31, 2024 10:39 am Temazepam 15 mg capsule Discont inued 15 MG PO Daily at bedtime March 08, 2023 12:00a m Augus t 2023 2:15p m Ascorbic Acid (Vitamin C) (Vitamin C) 500 mg Tablet Discont inued 500 MG PO Daily March 08, 2023 12:00a m May 17, 2023 10:50 am Ropinirole 0.25 mg tablet Discont inued 0.25 MG PO Daily at bedtime as needed for restless legs March 08, 2023 12:00a m May 17, 2023 10:51 am Pantoprazol e 40 mg tablet,[place] y[place] release (DR/EC) Discont inued 40 MG PO Every morning March 08, 2023 12:00a m Octua 2024 8:28a m Furosemide 20 mg tablet Discont inued 20 MG PO every other day March 08, 2023 12:00a m May 18, 2023 11:39 am on even days 3 times a week Gabapentin 100 mg capsule Discont inued 100 MG PO Twice daily March 08, 2023 12:00a m Octob er 2023 9:28a m may take tid if needed Irbesartan 150 mg tablet Discont inued 150 MG PO Every morning March 08, 2023 12:00a m February 27, 2024 10:37 am Calcium Carbonate-V itamin D3 (Calcium 600 + D(3)) 600 mg-10 mcg (400 unit) Tablet Discont inued 1 TAB PO Daily March 08, 2023 12:00a m May 17, 2023 10:50 am Psyllium Husk (Metamucil) 0.4 gram Capsule Discont inued 0.4 GM PO Daily as needed for Constipatio n March 08, 2023 12:00a m May 17, 2023 10:50 am Ticagrelor (Brilinta) 90 mg tablet Discont inued 90 MG PO Twice daily 180 March 09, 2023 12:00a m May 17, 2023 2:07p m Alprazolam 0.25 mg tablet Discont inued 0.25 MG PO .q8hrs as needed for Anxiety January 31, 2024 10:33a m Novem rajani 2023 3:20p m Aspirin 81 mg tablet,[place] yed release (/EC) Discont inued 81 MG PO Every morning February 27, 2024 10:00a m Febru daniel 2024 11:47 am every Mon, Wed, and Fri Clopidogrel 75 mg tablet Discont inued 75 MG PO Daily May 17, 2023 12:00a m Augus t 2023 11:42 am Fluticasone Propion-Abel meterol (Advair Hfa) 115-21 mcg/actuati on HFA aerosol inhaler Discont inued 2 PUFF INHALA TION Twice daily May 17, 2023 12:00a m Janua ry 2024 10:19 am Carvedilol 3.125 mg tablet Discont inued 12.5 MG PO Twice daily May 18, 2023 11:38a m May 18, 2023 2:48p m Please do not take if you are feeling lightheaded or have a blood pressure less than 120 systolic at home Furosemide 20 mg tablet Discont inued 20 MG PO every other day May 18, 2023 11:38a m Decem rajani 2023 2:00p m on even days 3 times a week. Goal weight is 195lbs, if you notice your weight trending up please take an extra dose as instructed by your PCP Carvedilol (Coreg) 12.5 mg tablet Discont inued 12.5 MG PO Twice daily 60 May 18, 2023 12:00a m January 31, 2024 10:34 am must administer with a meal/food Potassium Chloride 10 mEq tablet extended release Active 10 MEQ PO Daily February 12, 2025 12:00a m Complies with drug therapy Aspirin 81 mg capsule Discont inued 81 MG PO Daily February 12, 2025 12:00a m March 19, 2025 11:46 am Alprazolam 0.25 mg tablet Active 0.25 MG PO Twice daily as needed for anxiety February 12, 2025 12:00a m Complies with drug therapy Furosemide 20 mg tablet Discont inued 20 MG PO Daily February 12, 2025 12:00a m Augus t 2024 10:05 am Albuterol Sulfate 90 mcg/actuati on HFA aerosol inhaler Discont inued 2 PUFF INHALA TION Every 6 hours as needed for shortness of breath or wheezing January 31, 2024 12:00a m José ry 2024 10:19 am Carvedilol 3.125 mg tablet Discont inued 3.125 MG PO Twice daily January 31, 2024 12:00a m February 11, 2024 7:04a m Losartan 50 mg tablet Discont inued 50 MG PO Twice daily January 31, 2024 12:00a m February 26, 2024 10:53 am Triamcinolo ne Acetonide 0.1 % paste Discont inued 1 APPLIC DENTAL January 31, 2024 12:00a m February 12, 2025 6:39a m 1 application do not rinse afterwards and avoid eating or drinking for 30 minutes Mouth/Throat Twice a day Triamcinolo ne Acetonide 0.5 % cream Discont inued 1 APPLIC TOPICA L Twice daily January 31, 2024 12:00a m February 12, 2025 6:39a m Ropinirole 0.25 mg tablet Discont inued 0.25 MG PO Daily 2023 1:00am Febru [email or web address] 10:32 am Ropinirole 0.25 mg tablet Discont inued 0.25 MG PO Daily 90 90 2023 10:31a m February 27, 2024 10:38 am Nifedipine 30 mg tablet extended release 24hr Active 30 MG PO Daily 90 90 2024 12:37p m Complies with drug therapy Bumetanide 0.5 mg tablet Active 0.5 MG PO Twice daily 60 June 19, 2025 12:00a m Complies with drug therapy Bhanu Tovarantero viviana (Anoro Ellipta) 62.5-25 mcg/actuati on blister with device Active 1 INH INHALA TION Daily 180 90 May 19, 2025 3:59pm Complies with drug therapy Cefdinir 300 mg capsule Discont inued 300 MG PO Twice daily 10 5 May 19, 2025 12:00a m Augus t 2024 9:32a m Cefdinir 300 mg capsule Discont inued 300 MG PO Twice daily 14 February 13, 2024 12:00a m February 26, 2024 10:49 am Sacubitril- Valsartan (Entresto) 24-26 mg tablet Discont inued 1 TAB PO Twice daily February 26, 2024 12:00a m March 19, 2024 2:54p m Nifedipine 30 mg tablet extended release 24hr Discont inued 30 MG PO Daily February 26, 2024 12:00a m March 19, 2024 2:54p m Levothyroxi ne 75 mcg tablet Discont inued 75 MCG PO Daily February 26, 2024 12:00a m Novem rajani 2023 10:40 am Bhanu de la cruz-Kennethantero l (Anoro Ellipta) 62.5-25 mcg/actuati on blister with device Discont inued 1 INH INHALA TION Daily 60 March 19, 2025 11:37a m March 19, 2025 11:46 am Bhanu jonoDeshaun viviana (Anoro Ellipta) 62.5-25 mcg/actuati on blister with device Discont inued 1 INH INHALA TION Daily 180 90 March 19, 2025 11:38a m May 15, 2025 11:55 am Immunizations Immunization Event Date Not Given Reason Dose Number Sole Seamer Lot Number Vaccine Information Statement (VIS) Detail Administration Location Pfizer/Comirna ty, Pediatric Age 5-11 September 15, 2022 COVID-19 mRNA-1273 (Moderna) November 27, 2020 COVID-19 mRNA, Comirnaty (Pfizer) November 27, 2020 COVID-19 mRNA, Comirnaty (Pfizer) December 18, 2020 COVID-19 mRNA, Comirnaty (Pfizer) July 30, 2021 COVID-19 mRNA, Comirnaty (Pfizer) January 28, 2022 COVID-19 Comirnaty (Pfizer) Tri-Sucrose 12+ January 28, 2022 COVID-19 mRNA Bivalent Booster (Pfizer) September 15, 2022 Fluzone TIV High-Dose 65YR+ July 16, 2024 [id number] A [facility] influenza, unspecified formulation August 17, 2015 influenza, unspecified formulation July 13, 2016 influenza, unspecified formulation August 03, 2017 influenza, unspecified formulation August 13, 2018 influenza, unspecified formulation August 11, 2020 influenza, unspecified formulation July 18, 2021 influenza, unspecified formulation August 11, 2022 influenza, unspecified formulation August 06, 2023 Pneumococcal Conjugate Vaccine, 13 valent September 13, 2015 Pneumococcal Polysacc. Vaccine, 23 valent August 11, 2010 Zoster Vaccine Recombinant, Adjuvanted May 21, 2021 Tetanus, Diphtheria adult, 5 Lf pres free abs July 09, 2013 Tetanus, Diphtheria adult, 5 Lf pres free abs July 16, 2014 Shingles (Zoster) May 21, 2021 Shingles (Zoster) July 22, 2021 Medical Equipment Device Date Implanted Device Details CL STENT BARBARA FRONTIER 2.5 X 18 March 09, 2023 CL STENT BARBARA FRONTIER 4.0 X 15 March 09, 2023 CL STENT BARBARA FRONTIER 4.0 X 18 March 09, 2023 Vital Signs Vital Reading Result Reference Range Collection Date/Time Height 65.5 [in_i] May 19, 2025 3:33pm Weight 88.13 kg May 19, 2025 3:33pm Heart Rate 67 /min 60-100 May 19, 2025 3:33pm Respiratory rate 14 /min -May 19, 2025 3:33pm Oxygen saturation by Pulse oximetry 96 % 95-100 May 19, 2025 3:33 pm BP Systolic 148 mm[Hg] 100-140 May 19, 2025 3:33pm BP Diastolic 74 mm[Hg] 60-100 May 19, 2025 3:33pm BMI (Body Mass Index) 31.8 kg/m2 April 292024 3:33pm Height 65.5 [in_i] June 19 9:31am Weight 89.81 kg June 19 9:31am Heart Rate 62 /min 60-100 June 19 9:31am Respiratory rate 14 /min -May 9:31am Oxygen saturation by Pulse oximetry 96 % 95-100 June 19, 2025 9: 31am BP Systolic 146 mm[Hg] 100-140 June 19 9:31am BP Diastolic 70 mm[Hg] 60-100 June 19 9:31am BMI (Body Mass Index) 32.4 kg/m2 June 19, 2025 9:31am Advance Directives Advance Directive Response Recorded Date/ Time Advance Directives No March 07 1:03pm Insurance Providers Guarantor Jono Deras Address [address] [place] [phone] Contact Info. Home Phone: Payer Policy Id Subscriber's Name Subscriber Id Effectiv e Date Expiration Date Medicare [id number] Jono Deras [id number] Medicare Outpatient [id number] Encounters Encounter Location(s) Arrival/Admit Date Discharge/Depart Date Provider(s) Departed Physician/Prov ider Office Visit -[facility] May 19, 2025 3:17pm May 19, 2025 4:07pm Nathan Bateman DO Departed Physician/Prov ider Office Visit -[facility] June 19, 2025 9:23am June 19, 2025 10:27am Nathan Bateman , DO Recent Diagnosis Onset Date Admit Date Acute bronchitis due to other specified organism s Unknown May 19, 2025 3:17pm Acute exacerbation of chroni c obstructive airways disease Unknown May 19, 2025 3:17pm ASHD (arteriosclerotic heart disease) Unknown June 19, 2025 9:23am Chronic bronchitis Unknown June 19, 2025 9:23am Chronic kidney disease Unknown June 192024 9:23am Chronic venous insufficiency Unknown May ust 2024 9:23am Essential hypertension Unknown June 192024 9:23am OMAR (generalized anxiety disorder) Unknown June 19, 2025 9:23am Gastroesophageal reflux dise ase with esophagitis without hemorrhage Unknown June 19, 2025 9:23am Hypercholesterolemia Unknown May 9:23am MGUS (monoclonal gammopathy of unknown significance) Unknown June 19, 2025 9:23am Obesity Unknown June 19 9:23am Screening mammogram for breast cancer Unknown June 19, 2025 9:23am Subclinical hypothyroidism Unknown Augus t 2024 9:23am Thyroid nodule Unknown June 19 9:23am Acute on chronic heart failu re with preserved ejection fraction (HFpEF) Unknown June 19, 2025 9:23am Medicare annual wellness visit, subsequent Unkno wn June 19, 2025 9:23am Assessments Diagnosis Onset Date Resolution Status Admit Date Acute bronchitis due to othe r specified organisms noneactive May 19, 2 025 3:17pm Acute exacerbation of chroni c obstructive airways disease noneactive May 19, 2025 3:17pm ASHD (arteriosclerotic heart disease) acute June 19 9:23am Chronic bronchitis acute June 19, 2025 9:23am Chronic kidney disease acute Au aminata 2024 9:23am Chronic venous insufficiency acute June 19, 2025 9:23am Essential hypertension acute Au aminata 2024 9:23am OMAR (generalized anxiety disorder) acute June 19 9:23am Gastroesophageal reflux dise ase with esophagitis without hemorrhage acute June 19 9:23am Hypercholesterolemia acute Augu st 2024 9:23am 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 May 9:23am Obesity acute June 19, 2 025 9:23am Screening mammogram for [facility] cancer acute June 19 9:23am Subclinical hypothyroidism acute June 19, 2025 9:23am Thyroid nodule acute May 9:23am Acute on chronic heart failu re with preserved ejection fraction (HFpEF) noneactive June 19 9:23am Medicare annual wellness vis it, subsequent noneactive June 19 9:23am Plan of Treatment Author Nathan Bateman [facility] Authored June 16, 2025 7: 26am I have instructed this patie nt on a low salt diet, exercise and daily weights. I have instructed them to notify the office for any on any unexpected weight gain > 3lbs and /or increased dyspnea on exertion, difficulty breathing during sleep, worsening lower extremity swelling, chest pain or lightheadedness. I have reviewed the GDMT with beta blockers, BRAD/ARB or ARNI, MRA and a SGLT-2i. [facility] w/ PCI/stent LAD, RCA (Feb, 2023) Echo w/ LVEF 60%, ELY, normal RV size/function, RVSP - 01/2024 Daily weights: < 192 take furosemide qd > 192 take furosemide bid > 200 double furosemide and take bid She recently presented w/ CHF, manifesting as 7-8 lbs weight gain, SOB, wheezing and increased dependent edema. - corrected over 5 days by doubling her furosemide to 40mg bid Resulted in permissive azotemia - instructed to reduce back to 20mg bid w/ update in 4 days This patient is stable without activity related chest pain, dyspnea or lightheadedness. I instructed them to continue exercise at least 3x weekly and consume a low salt, low fat, high fiber diet. I instructed them to continue secondary prevention measures in reducing risks for recurrent events. - [facility] w/ PCI/stent LAD, RCA (Feb, 2023) - Echo w/ LVEF 60%, ELY, normal RV size/function, RVSP - 01/2024, - Echo: LVEF 60-65%, normal RV size/function, mild-mod MR - 02/2025 Continue ASA and Rosuvastatin without interruption I have instructed this patient to follow a comprehensive diabetic treatment plan. I have also instructed them to check their feet daily for calluses and nonhealing ulcers. I have instructed them to have a yearly dilated eye examination. I have reviewed their treatment goals: SBP less than 130, LDL less than 100, FBS less than 140, A1C less than 7%. I have instructed them to maintain a home BS log and bring the results to each of their office visits for review. I have explained the importance of routine monitoring of their A1C, Microalbumin and Lipids. I have explained the benefits of well controlled diabetes in preventing micro and macrovascular complications. Permissive azotemia after increasing diuretic for fluid retention Likely due to RHF secondary to pulmonary hypertension No ER/hosp visits for AE COPD Continue maintenance LABA/ICS EDEL as needed Continue Anoro without interruption UTD w/ vaccinations I have instructed this patient to consume a healthy, low-fat, low-salt diet. I have also encouraged them to continue exercise with weight loss to achieve/maintain a BMI < 30. I have instructed this patient on the correct procedure for obtaining home BP measurements: - rest for 5 minutes w/o talking. - positioned w/ feet on floor and arms supported. - average best 2/3 readings w/ goal < 135/85. - update office w/ home readings in 2 weeks. Continue Valsartan and Nifedipine without interruption I have instructed this patient to avoid salt and elevate their lower extremities. I have also recommended use of support stockings. I instructed them to inspect their legs and feet daily for blisters and ulcerations. Unable to decrease diuretic to qd, taking bid every day Initial TSH minimally elevated Stopped Levothyroxine and monitoring TSH and FT4 If TSH increases or free hormone levels decreases, will restart Levothyroxine at a lower dose. Spray I, nondiagnostic per FNA - 10/2024 f/u ENT Serial US I have instructed this patient on a low fat, high fiber diet and exercise. I have discussed the primary and secondary prevention benefits attributed to lowering LDL cholesterol. I have also discussed the medical treatment of elevated cholesterol, which is based on the 10 year ASCVD risk. Continue Rosuvastatin without interruption I have instructed this patient on a low-fat, high-fiber diet. I have also instructed them to reduce calories, portions sizes, sweet drinks and snacks. I have also recommended they exercise for 30 minutes, 3-5 times weekly. They are aware of the comorbid conditions associated with excessive weight: Diabetes, HTN, Hyperlipidemia, CAD and arthritis. I have instructed this patient on a healthy diet and exercise program. I have also reviewed age-appropriate preventive testing recommended. Serial SPEP to monitor for any deterioration to MM I have instructed this patient to avoid lying flat after eating. I have also recommended to avoid eating 2 hours prior to bedtime. They were also informed that smaller, frequent meals may be better tolerated. I have discussed additional treatment options for persistent symptoms, which includes: weight loss, H2 blockers and PPI. I have also instructed them to notify the office with any pain or difficulty swallowing. Instructed on a healthy diet and exercise routine. Instructed to continue medical treatment w/o interruption. Instructed to avoid abrupt d/c of medication due to w/d symptoms. I have instructed this patient on monthly SBE and recommended yearly mammograms. Author Nathan Bateman [facility] Authored May 19, 2025 4:10 pm I have instructed this patie nt to use Robitussin or Mucinex for cough, saline and Flonase NS for congestion and Tylenol for pain and fever. Continue antibiotics until all the medication has been taken. Report to the ER if develop any CP or SOB Continue use of Anoro qd Albuterol every 6 hours as needed for cough or wheezing. Continue pushing fluids and using Robitussin DM for cough ER for CP or SOB Future Tests Future scheduled test information is unavailable Pending Tests Pending diagnostic test information is unavailable Future Visits Future appointment information is unavailable Referrals to Other Providers Referral information is unavailable Future Procedures Future procedure information is unavailable Future Medications Future medication information is unavailable Patient Instructions Patient instructions are unavailable
--- OUTSIDE RECORDS SUMMARY | 2025-06-23 07:00 | XMS_ITS | Encounter Summary ---
Author Organization [facility] Address [address] [place] [address] Phone Care Team Providers Care Road Sign Installer Name Role Phone Fransico Nathan Chinyere REILLY Primary Care Provider [phone] Nathan Bateman DO Primary Care Provider [phone] Encounter Details Date Type Department Care Team (Late Contact Info) Description 10/24/2024 Scanned Document [facility] [address] [place] [address] Scanning, Generic Provider Social History Tobacco Use Types Packs/Day Years Used Date Smoking Tobacco: Former Cigarettes Q uit: 1980 Smokeless Tobacco: Never Alcohol Use Standard Drinks/Week Comments Never 0 (1 standard drink = 0.6 oz pur e alcohol) Comments Unknown Sex and Gender Information Value Date Recorded Sex Assigned at Not on file Legal Sex Female 12:05 PM EDT Gender Identity Not on file Sexual Orientation Not on file COVID-19 Exposure Response Date Recorded In the last 10 days, have yo u been in contact with someone who was confirmed or suspected to have Coronavirus/COVID-19? No / Unsure 10/08/2024 10:33 AM EST documented as of this encounter Plan of Treatment Upcoming Encounters Date Type Department Care Team (Late Contact Info) Description 10/27/2025 2:10 PM EST Office Visit [facility] [address] [facility] [address] [place] [address] Edinson Perry DO [address] [facility] [address] [place], [place] [id number] documented as of this encounter Visit Diagnoses Not on filedocumented in this encounter Additional Health Concerns Assessment Noted Time A fall risk assessment has been complete d for the patient 03/05/2024 11:46 AM EDT documented as of this encounter Care Teams Road Sign Installer Relationship Specialty Start Date End Date Nathan Bateman DO PCP - General Internal Medicine 10/03/23 03/08/25 Nathan Bateman DO [address] [place] [address] PCP - General Internal Medicine 03/09/25 documented as of this encounter
--- OUTSIDE RECORDS SUMMARY | 2025-06-23 07:00 | XMS_ITS | Encounter Summary ---
Author Organization [facility] Address [address] [place] [address] Phone Care Team Providers Care Shear Scrapman Name Role Phone Nathan Bateman DO Primary Care Provider [phone] Nathan Bateman DO Primary Care Provider [phone] Nathan Bateman DO Primary Care Provider [phone] Encounter Details Date Type Department Care Team (Late st Contact Info) Description 02/08/2023 Orders Only [facility] [address] [place] [address] Conversion, Onbase Social History Tobacco Use Types Packs/Day Years Used Date Smoking Tobacco: Never Assessed Comments Unknown Sex and Gender Information Value Date Recorded Sex Assigned at Not on file Legal Sex Female 12:05 PM EDT Gender Identity Not on file Sexual Orientation Not on file documented as of this encounter Plan of Treatment Upcoming Encounters Date Type Department Care Team (Late st Contact Info) Description 10/27/2025 2:10 PM EST Office Visit [facility] [address] [facility] [address] [place] [address] Edinson Perry DO [address] [facility] [address] [place], [place] [id number] Scheduled Orders Name Type Priority Associated Diagnoses Orde r Schedule OUTSIDE LAB SCAN Lab Ordered: 02/08/2023 documented as of this encounter Visit Diagnoses Not on filedocumented in this encounter Care Teams Shear Scrapman Relationship Specialty Start Date End Date Nathan Bateman DO PCP - General 03/07/23 10/02/23 Nathan Bateman DO PCP - General Internal Medicine 10/03/23 03/08/25 Nathan Bateman DO [address] [place] [address] PCP - General Internal Medicine 03/09/25 documented as of this encounter
--- OUTSIDE RECORDS SUMMARY | 2025-06-23 07:00 | XMS_ITS | Encounter Summary ---
Author Organization [facility] Address [address] [place] [address] Phone Care Team Providers Care Statistical Programmer Name Role Phone Nathan Bateman DO Primary Care Provider [phone] Nathan Bateman DO Primary Care Provider [phone] Nathan Bateman DO Primary Care Provider [phone] Encounter Details Date Type Department Care Team (Late st Contact Info) Description 06/06/2023 Scanned Document [facility] [address] [place] [address] Conversion, Onbase Social History Tobacco Use Types [...] Description 10/27/2025 2:10 PM EST Office Visit [facility] [address] [facility] [address] [place] [phone] Edinson Perry DO [address] [facility] [address] [place], [place] [id number] documented as of this encounter Visit Diagnoses Not on filedocumented in this encounter Care Teams Statistical Programmer Relationship Specialty Start Date End Date Nathan Bateman DO PCP - General 03/07/23 10/02/23 Nathan Bateman DO PCP - General Internal Medicine 10/03/23 03/08/25 Nathan Bateman DO [address] [place] [address] PCP - General Internal Medicine 03/09/25 documented as of this encounter
--- OUTSIDE RECORDS SUMMARY | 2025-06-23 07:00 | XMS_ITS | Encounter Summary ---
Author Organization [facility] Address [address] [place] [address] Care Team Providers Care Acid Pump Operator Name Role Phone Nathan Bateman DO Primary Care Provider [phone] Source Comments In the event this information is protected by the Federal Confidentiality of Alcohol and Drug AbusePatient Records regulations: The Federal rules restrict any use of the information to criminally investigate or prosecute any alcohol or drug abuse patient.[facility] Encounter Details Date Type Department Care Team (Latest Contact Info) Description 07/25/2021 H&P External-NonCCF Provider, External, PA-C Do not enter address information under generic External Provider. Social History Tobacco Use Types Packs/Day Years Used Date Smoking Tobacco: Never Assessed Comments Unknown Sex and Gender Information Value Date Recorded Sex Assigned at Not on file Legal Sex Female 10:14 AM EST Gender Identity Not on file Sexual Orientation Not on file documented as of this encounter Plan of Treatment Not on file documented as of this encounter Visit Diagnoses Not on filedocumented in this encounter Care Teams Acid Pump Operator Relationship Specialty Start Date End Date Nathan Bateman DO PCP - General Internal Medicine 01/31/12 documented as of this encounter
--- OUTSIDE RECORDS SUMMARY | 2025-06-23 07:00 | XMS_ITS | Clinical Summary ---
Author Organization [facility] Address [address] [place], [place] [id number] Care Team Providers Care Gym Manager Name Role Phone Nathan Bateman DO Primary Care Provider Allergies Active Allergy Reactions Criticality Noted Date Comments Allopurinol Unknown 11/05/2023 Amlodipine Unknown 07/27/2021 Sulfamethoxazole-Trimethopr im Unknown 07/27/2021 Codeine-Guaifenesin Unknown 07/27/2021 Doxycycline Hyclate Unknown 07/27/2021 Duloxetine Unknown 07/27/2021 Iodine And Iodide Containing Products Unknown 01/19/2021 08/04/22 confirmed with patient that she is not allergic to CT contrast and has had it previously without issues or premeds. Levofloxacin Unknown 07/27/2021 Penicillins Unknown 07/27/2021 Pseudoephedrine Unknown 10/29/2019 Sulfa (Sulfonamide Antibiotics) Rash,Unknown 03/08/2023 Tetanus And Diphtheria Toxoids Unknown 07/27/2021 Tetracyclines Unknown 07/27/2021 Trimethoprim Unknown 03/09/2023 Ondansetron Unknown 07/27/2021 Medications pravastatin sodium (PRAVASTATIN ORAL) Take 40 mg by mouth every evening. Active losartan (COZAAR) 100 mg tablet Take 100 mg by mouth once daily. Active temazepam (RESTORIL) 15 mg Take by mouth at bedtime as needed. Active ALPRAZolam (XANAX) 0.25 mg tablet Take 0.25 mg by mouth three times daily as needed. Active GABAPENTIN ORAL Take 100 mg by mouth twice daily. Active pantoprazole DR (PROTONIX) 40 mg tablet 07/05/2021 Active MULTI-VITAMIN ORAL Take by mouth. Active calcium carbonate (CALCIUM 600 ORAL) Take by mouth. Active aspirin 81 mg cap Take by mouth. Active irbesartan (AVAPRO) 150 mg tablet 11/28/2022 Active rOPINIRole (REQUIP) 0.25 mg tablet 11/24/2022 Active carvedilol (COREG) 12.5 mg tablet TAKE 1 TABLET BY MOUTH TWICE A DAY WITH FOOD/MEAL 05/18/2023 Active clopidogrel (PLAVIX) 75 mg tablet TAKE 8 TABLETS BY MOUTH ON DAY ONE THEN TAKE 1 TABLET BY MOUTH DAILY 05/09/2023 Active furosemide (LASIX) 20 mg tablet Take 20 mg by mouth two times a day. 05/23/2023 Active potassium chloride (K-TAB) 10 mEq tablet Take 10 mEq by mouth two times a day. 04/26/2023 Active Active Problems No known active problems Immunizations Immunization Administration Dates Next Due AS03 adjuvant 07/09/2019,08/13/2018 COVID-19 original vaccine, a ge 12+ yr, monovalent ([employer] - PURPLE TOP) 07/30/2021,12/18/2020,11/27/2020 COVID-19 original vaccine, a ge 5 yr - 11 yr, monovalent ([employer]) 09/15/2022 COVID-19 original vaccine, f ull dose, monovalent (MODERNA) 11/27/2020 influenza (HD-IIV3) vaccine, age 65+ yr, high dose, trivalent, PF (FLUZONE HIGH-DOSE) 08/03/2017 influenza (HD-IIV4) vaccine, age 65+ yr, high dose, quadrivalent, PF (FLUZONE HIGH-DOSE) 07/19/2021 influenza (aIIV3) vaccine, a ge 65+ yr, trivalent, PF (FLUAD) 07/09/2019,08/13/2018 influenza vaccine, split virus 2,07/18/2021,08/11/2020,08/13,08/03/2017,07/13/2016,08/17/2015 pneumococcal conjugate (PCV1 3) vaccine, 13 valent (PREVNAR 13) 09/13/2015 pneumococcal polysaccharide (PPV23) vaccine, 23 valent (PNEUMOVAX 23) 08/11/2010 tetanus diphtheria (Td) vacc ine, age 7+ yr, 5 Lf tetanus, PF (TENIVAC) 07/16/2014,07/09/2013 zoster (RZV) vaccine, recomb inant (SHINGRIX) 05/21/2021 zoster (ZVL) vaccine, live (ZOSTAVAX) 07/22/2021 ,05/21/2021 Family History Medical History Relation Comments Colon Cancer Brother 1 Lung Cancer Brother 1 Lung Cancer Brother 2 Cancer Father Lymphoma Mother Leukemia Sister Multiple Sclerosis Sister Relation Status Comments Brother 1 Brother 2 Alive Father Mother Sister Social History Tobacco Use Types Packs/Day Years Used Date Smoking Tobacco: Former Cigarettes Smokeless Tobacco: Never Alcohol Use Standard Drinks/Week Comments Not Currently 0 (1 standard drink = 0.6 oz pur e alcohol) PHQ-2 Answer Date Recorded PHQ-2 score 0 12/04/2022 Area Deprivation Index Answer Date Srini rded National Score (1-100), lower number is lower ri sk 87 06/04/2023 State Score (1-10), lower number is lower risk 8 06/04/2023 Data from: https://www.neighborhoodatlas.[facility].edu/. Last address used for calculation [address] [place] [address] 06/04/2023 Comments No Sex and Gender Information Value Date Recorded Sex Assigned at Not on file Legal Sex Female 10:14 AM EST Gender Identity Not on file Sexual Orientation Not on file Last Filed Vital Signs Vital Sign Reading Time Taken Comments Blood Pressure 111/40 11/05/2023 1:12 PM EST Pulse 57 11/05/2023 1:12 PM EST Temperature 36.4 C (97.5 F) 11/05/2023 1:12 PM EST Respiratory Rate 16 11/05/2023 1:12 PM EST Oxygen Saturation 95% 11/05/2023 1:12 PM EST Inhaled Oxygen Concentration - - Weight 87.6 kg (193 lb 2 oz) 11/05/2023 1:12 PM EST Height 166.4 cm (5' 5.51 ) 11/05/2023 1:12 PM ES T Body Mass Index 31.64 11/05/2023 1:12 PM EST Plan of Treatment Health Maintenance Due Date Last Done Comments Anxiety Screening 1958 Depression Screening 1958 Medicare Annual Wellness Visit 08/29/2007 Bone Density Screening 2007 DTaP,Tdap,Td Vaccine (1 - Tdap) 07/17/2014 4, 07/09/2013 RSV Vaccine (1 - 1-dose 75+ series) 2017 Shingrix Vaccine (3 of 3) 09/16/20212020, 05/21/2021, 05/21/2021 Advance Directive Discussion 10/29/2024 Influenza Vaccine (#1) 2025 2, 07/19/2021, 07/18/2021, Additional history exists Diabetes Screening 11/05/2026 11/05/2023, 0 06/04/2023, 05/28/2023, Additional history exists Pneumococcal Vaccine: 50+ Completed 09/13/2015, Cologuard (FIT-DNA) Discontinued 11/25/2018 Colorectal Cancer Screening Discontinued CT Colonography Discontinued Colonoscopy Discontinued Fecal Occult Blood Discontinued Sigmoidoscopy Discontinued Procedures Procedure Name Priority Date/Time Associated Diagnosis Comments BASIC METABOLIC PANEL Routine 11/05/2023 12:57 PM EST Abnormal SPEP from Last 3 Months or Most Recently Relevant to Health Maintenance Results * (ABNORMAL) BASIC METABOLIC PNL (11/05/2023 12:57 PM EST) Glucose 138(H) 74 - 99 mg/dL 11/05/2023 1:46 PM EST [facility] Comment: The [place] Diabetes [employer] (ADA) provides guidance for cutoff [...] Standards of Medical Care in Diabetes 2016, [place] [employer]. Diabetes Care. 2016.39(Suppl 1). BUN 25(H) 7 - 21 mg/dL 11/05/2023 1:46 PM EST [facility] Creatinine 1.48(H) 0.58 - 0.96 mg/dL 11/05/2023 1:46 PM EST [facility] Sodium 141 136 - 144 mmol/L 11/05/2023 1:46 PM EST [facility] Potassium 5.0 3.7 - 5.1 mmol/L 11/05/2023 1:46 PM EST [facility] Chloride 103 97 - 105 mmol/L 11/05/2023 1:46 PM EST [facility] CO2 29 22 - 30 mmol/L 11/05/2023 1:46 PM EST [facility] Anion Gap 9 9 - 18 mmol/L 11/05/2023 1:46 PM [facility] Calcium, Total 9.6 8.5 - 10.2 mg/dL 11/05/2023 1:46 PM EST [facility] Estimated Glomerular Filtration Rate 35(L) >=60 mL/min/1. 73m 11/05/2023 1:46 PM EST [facility] Comment:Estimated Glomerular Filtration Rate (eGFR) is calculated using the 2020 CKD-EPI creatinine equation. This equation utilizes serum creatinine, sex, and age as parameters. The creatinine assay has traceable calibration to isotope dilution- mass spectrometry. Refer to KDIGO guidelines for clinical interpretation. In patients with unstable renal function, e.g. those with acute kidney injury, the eGFR may not accurately reflect actual GFR. Blood BLOOD SPECIMEN / Unknown Venipuncture / Unknown 11/05/2023 12:57 PM EST 11/05/2023 12:58 PM EST us Luis Mckenzie MD LABORATORY Final Re sult [facility] [address] [place] [address] from Last 3 Months or Most Recently Relevant to Health Maintenance [facility] Address: [facility] [id number] [place] [address] MEDICARE Advance Directives Documents on File Type Date Recorded Patient Torpedo Worker Expl anation Advance Directive(s) 08/01/2021 12:55 PM A dvance Directives Care Teams Gym Manager Relationship Specialty Start Date End Date Nathan Bateman DO PCP - General Internal Medicine 01/31/12
--- OUTSIDE RECORDS SUMMARY | 2025-06-23 07:00 | XMS_ITS | Clinical Summary ---
Author Organization [facility] Address [address] [place] [address] Care Team Providers Care Dry Dip Worker Name Role Phone Nathan Bateman DO Primary Care Provider [phone] Allergies Active Allergy Reactions Criticality Noted Date Comments Allopurinol 11/05/2023 Other Reaction(s): Unknown Amlodipine 07/27/2021 Other Reaction(s): Unknown, Unknown Reaction Azithromycin Swelling 10/17/2023 Other Reaction(s): rash Tongue swelling Codeine 02/13/2024 Other Reaction(s): Unknown Reaction Penicillins 07/27/2021 Other Reaction(s): Rash, Unknown, Unknown Reaction Sulfamethoxazole-Trimethopri m Hives 07/27/2021 Other Reaction(s): Unknown Medications albuterol HFA 90 mcg/act inhaler 4 Active ALPRAZolam (Niravam) 0.25 MG disintegrating tablet Take 0.25 mg by mouth as needed at bedtime Active furosemide (Lasix) 20 MG tablet Take 20 mg by mouth in the morning and 20 mg in the evening. 3 Active gabapentin (Neurontin) 100 MG capsule Take 100 mg by mouth in the morning and 100 mg in the evening. Active losartan (Cozaar) 50 MG tablet 4 Active NIFEdipine XL (Procardia XL) 30 MG 24 hr tablet Take 30 mg by mouth in the morning. 4 Active pantoprazole (ProtoNix) 40 MG EC tablet Take 40 mg by mouth in the morning. Take before meals. Active potassium chloride CR (Klor-Con) 10 MEQ ER tablet Take 10 mEq by mouth in the morning and 10 mEq in the evening. Active rosuvastatin (Crestor) 40 MG tablet Take 40 mg by mouth in the morning. 4 Active Entresto 24-26 MG tablet Take 1 tablet by mouth in the morning and 1 tablet in the evening. 4 Active temazepam (Restoril) 15 MG capsule Take 15 mg by mouth as needed at bedtime Active clopidogrel (Plavix) 75 MG tablet 4 Active triamcinolone (Kenalog) 0.1 % oral paste 4 Active triamcinolone (Kenalog) 0.5 % cream 4 Active Anoro Ellipta 62.5-25 MCG/ACT aerosol powder USE 1 INHALATION BY MOUTH DAILY 5 Active Active Problems Problem Noted Date Diagnosed Date Palpitations 01/12/2025 Abnormal cardiovascular stress test 11/24/2024 Overview (11/24/2024): Problem List clean-up per request of Phys. 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 EHR Cmte OMAR (generalized anxiety disorder) 11/24/2024 Gastroesophageal reflux dise ase with esophagitis without hemorrhage 11/24/2024 Heart failure 11/24/2024 Overview (11/24/2024): Problem List clean-up per request of Phys. EHR Cmte Dry eyes 04/28/2024 Epiretinal membrane (ERM) of left eye 04/28/2024 Blepharitis of upper and lower eyelids of both e yes 04/28/2024 BMI 33.0-33.9,adult 03/05/2024 ASHD (arteriosclerotic heart disease) 10/17/2023 Overview (11/24/2024): LHC w/ PCI/stent LAD, RCA (Feb, 2023) COVID 10/17/2023 Essential hypertension 10/17/2023 Overview (11/24/2024): Problem List clean-up per request of Phys. EHR Cmte Former smoker 10/17/2023 Family History Relation Name Status Comments Father Mother Social History Tobacco Use Types Packs/Day Years Used Date Smoking Tobacco: Former Cigarettes Q uit: 1992 Smokeless Tobacco: Never Tobacco Cessation:Counseling Given: Not Answered Comments Unknown Sex and Gender Information Value Date Recorded Sex Assigned at Not on file Legal Sex Female 7:00 PM EDT Gender Identity Not on file Sexual Orientation Not on file Last Filed Vital Signs Vital Sign Reading Time Taken Comments Blood Pressure 118/59 02/25/2025 8:46 AM EDT Pulse 72 02/25/2025 8:46 AM EDT Temperature - - Respiratory Rate - - Oxygen Saturation - - Inhaled Oxygen Concentration - - Weight 88.5 kg (195 lb) 02/25/2025 8:46 AM EDT Height 165.1 cm (5' 5 ) 02/25/2025 8:46 AM EDT Body Mass Index 32.45 02/25/2025 8:46 AM EDT Plan of Treatment Upcoming Encounters Date Type Department Care Team (Late st Contact Info) Description 08/25/2025 9:10 AM EDT Office Visit [facility] [address] [facility] [address] [place] [address] Gladys Wright MD [address] [facility] [address] [place] [address] Health Maintenance Due Date Last Done Comments Influenza Vaccine (#1) 2025 4, 08/06/2023, 08/11/2022, Additional history exists Pneumococcal Vaccine: 65+ Years Completed 5, 08/11/2010 Insurance MEDICARE [facility] Care Teams Dry Dip Worker Relationship Specialty Start Date End Date Nathan Bateman DO [address] [place] [address] PCP - General Internal Medicine 02/10/25
--- OUTSIDE RECORDS SUMMARY | 2025-06-23 07:00 | XMS_ITS | Encounter Summary ---
Author Organization [facility] Address [address] [place] [address] Phone Care Team Providers Care Tank Carpenter Name Role Phone Nathan Bateman DO Primary Care Provider [phone] Nathan Bateman DO Primary Care Provider [phone] Encounter Details Date Type Department Care Team (Late st Contact Info) Description 12/18/2024 Scanned Document [facility] [address] [place] [address] Scanning, Generic Provider Social History [...] Description 10/27/2025 2:10 PM EST Office Visit [facility] [address] [address] Edinson Perry DO [address] [facility] [address] [place] [address] documented as of this encounter Visit Diagnoses Not on filedocumented in this encounter Additional Health Concerns Assessment Noted Time A fall risk assessment has been complete d for the patient 03/05/2024 11:46 AM EDT documented as of this encounter Care Teams Tank Carpenter Relationship Specialty Start Date End Date Nathan Bateman DO PCP - General Internal Medicine 10/03/23 03/08/25 Nathan Bateman DO [address] [place] [address] PCP - General Internal Medicine 03/09/25 documented as of this encounter
--- OUTSIDE RECORDS SUMMARY | 2025-06-23 07:00 | XMS_ITS | Encounter Summary ---
Author Organization [facility] Address [address] [place] [address] Phone Care Team Providers Care Director Validation Name Role Phone Nathan Bateman DO Primary Care Provider [phone] Nathan Bateman DO Primary Care Provider [phone] Nathan Bateman DO Primary Care Provider [phone] Encounter Details Date Type Department Care Team (Late st Contact Info) Description 03/01/2023 Orders Only [facility] [address] [place] [address] Conversion, Onbase Social History Tobacco Use Types [...] Description 10/27/2025 2:10 PM EST Office Visit [facility] [address] [facility] [address] [place] [address] Edinson Perry DO [address] [facility] [address] [place], [place] [id number] Scheduled Orders Name Type Priority Associated Diagnoses Orde r Schedule OUTSIDE LAB SCAN Lab Ordered: 03/01/2023 OUTSIDE LAB SCAN Lab Ordered: 03/01/2023 documented as of this encounter Visit Diagnoses Not on filedocumented in this encounter Care Teams Director Validation Relationship Specialty Start Date End Date Nathan Bateman DO PCP - General 03/07/23 10/02/23 Nathan Bateman DO PCP - General Internal Medicine 10/03/23 03/08/25 Nathan Bateamn DO [address] [place] [address] PCP - General Internal Medicine 03/09/25 documented as of this encounter
--- OUTSIDE RECORDS SUMMARY | 2025-06-23 07:00 | XMS_ITS | Clinical Summary ---
Author Organization [facility] Address [address] [place] [address] Phone Care Team Providers Care Aircraft Engine Cylinder Mechanic Name Role Phone Nathan Bateman DO Primary Care Provider [phone] Allergies Active Allergy Reactions Criticality Noted Date Comments Sulfamethoxazole-Trimethoprim Hives 2022 Azithromycin Swelling 10/17/2023 Tongue swelling Medications ALPRAZolam (Niravam) 0.25 mg disintegrating tablet Dissolve 1 tablet (0.25 mg) in the mouth as needed at bedtime for anxiety. Active gabapentin (Neurontin) 100 mg capsule Take 1 capsule (100 mg) by mouth 2 times a day. Active pantoprazole (ProtoNix) 40 mg EC tablet Take 1 tablet (40 mg) by mouth once daily in the morning. Take before meals. Do not crush, chew, or split. Active temazepam (Restoril) 15 mg capsule Take 1 capsule (15 mg) by mouth as needed at bedtime for sleep. Active NIFEdipine XL 30 mg 24 hr tablet Take 1 tablet (30 mg) by mouth once daily. 4 Active potassium chloride CR 10 mEq ER tablet Take 1 tablet (10 mEq) by mouth once daily. Do not crush, chew, or split. Active valsartan (Diovan) 80 mg tabletIndications:E ssential hypertension Take 1 tablet (80 mg) by mouth once daily. 90 tablet 3 4 10/08/20 25 Active clopidogrel (Plavix) 75 mg tabletIndications:A SHD (arteriosclerotic heart disease),S/P PTCA (percutaneous transluminal coronary angioplasty) Take 1 tablet (75 mg) by mouth once daily. 90 tablet 3 4 10/08/20 25 Active furosemide (Lasix) 20 mg tabletIndications:E ssential hypertension Take 1 tablet (20 mg) by mouth once daily. 90 tablet 3 4 10/08/20 25 Active rosuvastatin (Crestor) 40 mg tabletIndications:M ixed hyperlipidemia Take 1 tablet (40 mg) by mouth once daily. 90 tablet 3 4 10/08/20 25 Active Symbicort 160-4.5 mcg/actuation inhaler Inhale 2 puffs every 12 hours. 5 Active Active Problems Problem Noted Date Diagnosed Date Palpitations 01/12/2025 Assessment & Plan (01/12/2025 3:48 PM EDT): Reports fairly daily episodes of hearing my heart thumping going into my ears No prior documented A-fib or arrhythmia. Was taken off of carvedilol January 2024 hospitalization due to bradycardia Coronary arteriosclerosis af ter percutaneous transluminal coronary angioplasty (PTCA) 10/08/2024 Hyperlipidemia 03/05/2024 Assessment & Plan (01/12/2025 3:47 PM EDT): High intensity statin January 2024 HDL 42, cholesterol 158 Assessment & Plan (04/22/2024 11:58 AM EDT): High intensity statin January 2024 HDL 42, cholesterol 158 Assessment & Plan (03/06/2024 10:42 AM EDT): High intensity statin January 2024 HDL 42, cholesterol 158 BMI 33.0-33.9,adult 03/05/2024 Assessment & Plan (04/22/2024 11:58 AM EDT): Reviewed the merits of healthy lifestyle choices on overall cardiovascular health. Assessment & Plan (03/06/2024 10:42 AM EDT): Reviewed the merits of healthy lifestyle choices on overall cardiovascular health. ASHD (arteriosclerotic heart disease) 10/17/2023 Assessment & Plan (01/12/2025 3:47 PM EDT): March 09, 2023 Mid/proximal RCA PCI/Willie 4x15mm & 4x18mm Proximal diagonal PCI/Willie 2.5 x 18 mm LAD 10% Circumflex normal LVEF 65% February 2024 MPI ischemia, EF 88% Current daily activity at 4 METS without concerning symptoms Assessment & Plan (04/22/2024 11:58 AM EDT): March 09, 2023 Mid/proximal RCA PCI/Willie 4x15mm & 4x18mm Proximal diagonal PCI/Willie 2.5 x 18 mm LAD 10% Circumflex normal LVEF 65% February 2024 MPI ischemia, EF 88% Current daily activity at 4 METS without concerning symptoms Assessment & Plan (03/06/2024 10:41 AM EDT): March 09, 2023 Mid/proximal RCA PCI/[place] 4x15mm & 4x18mm Proximal diagonal PCI/Willie 2.5 x 18 mm LAD 10% Circumflex normal LVEF 65% Essential hypertension 10/17/2023 Assessment & Plan (01/12/2025 3:46 PM EDT): Optimal in office Assessment & Plan (04/22/2024 11:58 AM EDT): Optimal in the office Assessment & Plan (03/06/2024 10:41 AM EDT): Optimal in office Shortness of breath 10/17/2023 COVID 10/17/2023 Former smoker 10/17/2023 Immunizations Immunization Administration Dates Next Due Flu vaccine, trivalent, pres ervative free, HIGH-DOSE, age 65y+ (Fluzone) 07/16/2024,08/03/2017 Pneumococcal conjugate vaccine, 13-valent (PREVN AR 13) 09/13/2015 Pneumococcal polysaccharide vaccine, 23-valent, age 2 years and older (PNEUMOVAX 23) 08/11/2010 Zoster vaccine, recombinant, adult (SHINGRIX) Zoster, live 07/22/2021 Family History Medical History Relation Name Comments Cancer Brother Cancer Father heart problem Father Cancer Mother Cancer Sister Relation Name Status Comments Brother Father Mother Sister Social History Tobacco Use Types Packs/Day Years Used Date Smoking Tobacco: Former Cigarettes Q uit: 1980 Smokeless Tobacco: Never Tobacco Cessation:Counseling Given: Not Answered Alcohol Use Standard Drinks/Week Comments Never 0 (1 standard drink = 0.6 oz pur e alcohol) Comments Unknown Sex and Gender Information Value Date Recorded Sex Assigned at Not on file Legal Sex Female 12:05 PM EDT Gender Identity Not on file Sexual Orientation Not on file Last Filed Vital Signs Vital Sign Reading Time Taken Comments Blood Pressure 120/60 03/17/2025 10:42 AM EDT Pulse 60 01/12/2025 11:10 AM EDT Temperature - - Respiratory Rate - - Oxygen Saturation - - Inhaled Oxygen Concentration - - Weight 90.7 kg (200 lb) 03/17/2025 10:42 AM EDT Height 165.1 cm (5' 5 ) 03/17/2025 10:42 AM EDT Body Mass Index 33.28 03/17/2025 10:42 AM EDT Plan of Treatment Upcoming Encounters Date Type Department Care Team (Late st Contact Info) Description 10/27/2025 2:10 PM EST Office Visit [facility] [address] [facility] [address] [place] [id number] Edinson Perry DO [address] [facility] [place] [address] Health Maintenance Due Date Last Done Comments Creatinine Level 1940 Lipid Panel 1940 Medicare Annual Wellness Vis it (AWV) 1940 Potassium Level 1940 Diabetes Screening 1960 DTaP/Tdap/Td Vaccines (1 - Tdap) 1964 Bone Density Scan 2007 RSV High Risk: (Elderly (60+ ) or Population) (1 - 1-dose 75+ series) 2017 Zoster Vaccines (2 of 2) 09/16/2021 021, 05/21/2021 COVID-19 Vaccine (4 - 2023-2 5 season) 2025 11/04/2024, 09/15/2022, 01/28/2022 Influenza Vaccine (#1) 2025 4, 08/03/2017 Echocardiogram 03/17/2026 03/17/2025, 02/08/2023 Pneumococcal Vaccine Completed 09/13/2015, 08/11/2010 HIB Vaccines Aged Out No longer eligi ble based on patient's age to complete this topic HPV Vaccines Aged Out No longer eligi ble based on patient's age to complete this topic Hepatitis A Vaccines Aged Out No long er eligible based on patient's age to complete this topic Hepatitis B Vaccines Aged Out No long er eligible based on patient's age to complete this topic IPV Vaccines Aged Out No longer eligi ble based on patient's age to complete this topic Meningococcal Vaccine Aged Out No anibal brian eligible based on patient's age to complete this topic Rotavirus Vaccines Aged Out No longer eligible based on patient's age to complete this topic Procedures Procedure Name Priority Date/Time Associated Diagnosis Comments TRANSTHORACIC ECHO (TTE) COMPLETE Routine 03/17/2025 11:35 AM EDT Essential hypertension Palpitations from Last 3 Months or Most Recently Relevant to Health Maintenance Results * TRANSTHORACIC ECHO (TTE) COMPLETE (03/17/2025 11:35 AM EDT) AV mn grad 4 mmHg SYNGO AV pk juan antonio 1.40 m/s SYNGO LV Biplane EF 55 % SYNGO LVOT diam 2.06 cm SYNGO MV E/A ratio 1.48 SYNGO MV avg E/e' ratio 17.94 SYNGO LA vol index A/L 42.1 ml/m2 SYNGO LV EF 63 % SYNGO RV free wall pk S' 16.27 cm/s SYNGO RVSP 31.5 mmHg SYNGO LVIDd 4.11 cm SYNGO Aortic Valve Area by Continuity of Peak Velocity 1.99 cm2 SYNGO AV pk grad 8 mmHg SYNGO Aortic Valve Area by Continuity of VTI 2.13 cm2 SYNGO LV A4C EF 64.6 SYNGO 03/17/2025 10:4 3 AM EDT Narrative SYNGO - 03/18/2025 6:52 PM EDT [address], [address], [place] [address] TRANSTHORACIC ECHOCARDIOGRAM REPORT Patient Name: LASHAUN WHALEY [place] Physician: [id number] Bryce Guy MD, [facility] Study Date: 03/17/2025 Ordering Provider: [id number] HOLDEN ROSADO MRN/PID: [id number] Fellow: Nurse: Date of /Age: 11 1940 / Security Inspector: Nicolasa taylor RDCS, RVT Gender Assigned at F Additional Staff: : Height: 165.10 cm Admit Date: Weight: 90.72 kg Admission Status: BSA / BMI: 1.98 m2 / 33.28 Department Location: [facility] kg/m2 [facility] Blood Pressure: 120 /64 mmHg Study Type: TRANSTHORACIC ECHO (TTE) COMPLETE Diagnosis/ICD: Essential (primary) hypertension-I10; Palpitations-R00.2 Indication: CAD, PTCA-2022, Edema, Hyperlipidemia, Former Smoker CPT Codes: Echo Complete w Full Doppler-[id number] Study Detail: The following Echo studies were performed: 2D, M-Mode, Doppler and color flow. PHYSICIAN INTERPRETATION: Left Ventricle: Left ventricular ejection fraction is normal, by visual estimate at 60-65%. There are no regional wall motion abnormalities. The left ventricular cavity size is normal. There is left ventricular concentric remodeling. Spectral Doppler shows a Grade II (pseudonormal pattern) of left ventricular diastolic filling with an elevated left atrial pressure. Left Atrium: The left atrium is upper limits of normal in size. Right Ventricle: The right ventricle is normal in size. There is normal right ventricular global systolic function. Right Atrium: The right atrial size is normal. Aortic Valve: The aortic valve is trileaflet. The aortic valve dimensionless index is 0.64. There is no evidence of aortic valve regurgitation. The peak instantaneous gradient of the aortic valve is 8 mmHg. The mean gradient of the aortic valve is 4 mmHg. Mitral Valve: The mitral valve is mildly thickened. The peak instantaneous gradient of the mitral valve is 7 mmHg. There is mild to moderate mitral valve regurgitation. Tricuspid Valve: The tricuspid valve is structurally normal. There is mild tricuspid regurgitation. Pulmonic Valve: The pulmonic valve is structurally normal. There is no indication of pulmonic valve regurgitation. Pericardium: No pericardial effusion noted. Aorta: The aortic root is normal. Systemic Veins: The inferior vena cava appears normal in size. In comparison to the previous echocardiogram(s): When compared to study from 02/08/2023, the previously reported pulmonary hypertension has resolved, otherwise no changes. CONCLUSIONS: 1. Left ventricular ejection fraction is normal, by visual estimate at 60-65%. 2. Spectral Doppler shows a Grade II (pseudonormal pattern) of left ventricular diastolic filling with an elevated left atrial pressure. 3. There is normal right ventricular global systolic function. 4. Mild to moderate mitral valve regurgitation. 5. When compared to study from 02/08/2023, the previously reported pulmonary hypertension has resolved, otherwise no changes. QUANTITATIVE DATA SUMMARY: 2D MEASUREMENTS: Normal Ranges: Ao Root s: 2.80 cm LAs: 3.98 cm (2.7-4.0cm) RVIDd: 3.57 cm (0.9-3.6cm) IVSd: 1.19 cm (0.6-1.1cm) LVPWd: 1.00 cm (0.6-1.1cm) LVIDd: 4.11 cm (3.9-5.9cm) LVIDs: 2.48 cm LV Mass Index: 76.1 g/m2 LVEDV Index: 32.34 ml/m2 LV % FS 39.6 % LEFT ATRIUM: Normal Ranges: LA Vol A4C: 76.2 ml (22+/-6mL/m2) LA Vol A2C: 84.3 ml LA Vol BP: 83.3 ml LA Vol Index A4C: 38.5ml/m2 LA Vol Index A2C: 42.6 ml/m2 LA Vol Index BP: 42.1 ml/m2 LA Vol A4C: 72.3 ml LA Vol A2C: 80.4 ml LA Vol Index BSA: 38.6 ml/m2 LV SYSTOLIC FUNCTION: Normal Ranges: EF-A4C View: 65 % (>=55%) EF-A2C View: 44 % EF-Biplane: 55 % EF-Visual: 63 % LV EF Reported: 63 % LV DIASTOLIC FUNCTION: Normal Ranges: MV Peak E: 1.19 m/s (0.7-1.2 m/s) MV Peak A: 0.81 m/s (0.42-0.7 m/s) E/A Ratio: 1.48 (1.0-2.2) MV e' 0.067 m/s (>8.0) MV lateral e' 0.08 m/s MV medial e' 0.05 m/s E/e' Ratio: 17.94 (<8.0) MITRAL VALVE: Normal Ranges: MV Vmax: 1.28 m/s (<=1.3m/s) MV peak P.5 mmHg (<5mmHg) MV mean P.6 mmHg (<48mmHg) MV VTI: 38.74 cm (10-13cm) MV DT: 243 msec (150-240msec) MITRAL INSUFFICIENCY: Normal Ranges: MR Vmax: 628.07 cm/s dP/dt: 876 mmHg/s (>1200mmHg/sec) AORTIC VALVE: Normal Ranges: AoV Vmax: 1.40 m/s (<=1.7m/s) AoV Peak P.9 mmHg (<20mmHg) AoV Mean P.4 mmHg (1.7-11.5mmHg) LVOT Max Juan Antonio: 0.84 m/s (<=1.1m/s) AoV VTI: 37.80 cm (18-25cm) LVOT VTI: 24.05 cm LVOT Diameter: 2.06 cm (1.8-2.4cm) AoV Area, VTI: 2.13 cm2 (2.5-5.5cm2) AoV Area,Vmax: 1.99 cm2 (2.5-4.5cm2) AoV Dimensionless Index: 0.64 RIGHT VENTRICLE: RV Basal 2.77 cm RV Mid 2.60 cm RV Major 5.3 cm RV s' 0.16 m/s TRICUSPID VALVE/RVSP: Normal Ranges: Peak TR Velocity: 2.67 m/s RV Syst Pressure: 31 mmHg (< 30mmHg) IVC Diam: 2.13 cm PULMONIC VALVE: Normal Ranges: RVOT Vmax: 0.71 m/s (0.6-0.9m/s) AORTA: Asc Ao Diam 2.73 cm [id number] Bryce Guy MD, FACC Electronically signed on 03/18/2025 at 6:52:27 PM Final Procedure Note Bryce Guy MD - 03/18/2025 [facility] [address] [facility], [address], [place] [address] TRANSTHORACIC ECHOCARDIOGRAM REPORT Patient Name: LASHAUN WHALEY Bessy Physician: [id number] Zurita, [facility] Study Date: 03/17/2025 Ordering Provider: [id number] ROSADO MRN/PID: [id number] Fellow: Nurse: Date of /Age: 11 1940 Security Inspector: Carlos Eduardo taylor RDCS,RVT Gender Assigned at F Additional Staff: : Height: 165.10 cm Admit Date: Weight: 90.72 kg Admission Status: BSA / BMI: 1.98 m2 / 33.28 Department Location: [address] Blood Pressure: 120 /64 mmHg Study Type: TRANSTHORACIC ECHO (TTE) COMPLETE Diagnosis/ICD: Essential (primary) hypertension-I10; Palpitations-R00.2 Indication: CAD, PTCA-2022, Edema, Hyperlipidemia, Former Smoker CPT Codes: Echo Complete w Full Doppler-[id number] Study Detail: The following Echo studies were performed: 2D, M-Mode,Doppler and color flow. PHYSICIAN INTERPRETATION: Left Ventricle: Left ventricular ejection fraction is normal, by visualestimate at 60-65%. There are no regional wall motion abnormalities. Theleft ventricular cavity size is normal. There is left ventricularconcentric remodeling. Spectral Doppler shows a Grade II (pseudonormalpattern) of left ventricular diastolic filling with an elevated leftatrial pressure. Left Atrium: The left atrium is upper limits of normal in size. Right Ventricle: The right ventricle is normal in size. There is normalright ventricular global systolic function. Right Atrium: The right atrial size is normal. Aortic Valve: The aortic valve is trileaflet. The aortic valvedimensionless index is 0.64. There is no evidence of aortic valveregurgitation. The peak instantaneous gradient of the aortic valve is 8mmHg. The mean gradient of the aortic valve is 4 mmHg. Mitral Valve: The mitral valve is mildly thickened. The peak instantaneousgradient of the mitral valve is 7 mmHg. There is mild to moderate mitralvalve regurgitation. Tricuspid Valve: The tricuspid valve is structurally normal. There is mildtricuspid regurgitation. Pulmonic Valve: The pulmonic valve is structurally normal. There is noindication of pulmonic valve regurgitation. Pericardium: No pericardial effusion noted. Aorta: The aortic root is normal. Systemic Veins: The inferior vena cava appears normal in size. In comparison to the previous echocardiogram(s): When compared to studyfrom 02/08/2023, the previously reported pulmonary hypertension hasresolved, otherwise no changes. CONCLUSIONS: 1. Left ventricular ejection fraction is normal, by visual estimate at60-65%. 2. Spectral Doppler shows a Grade II (pseudonormal pattern) of leftventricular diastolic filling with an elevated left atrial pressure. 3. There is normal right ventricular global systolic function. 4. Mild to moderate mitral valve regurgitation. 5. When compared to study from 02/08/2023, the previously reportedpulmonary hypertension has resolved, otherwise no changes. QUANTITATIVE DATA SUMMARY: 2D MEASUREMENTS: Normal Ranges: Ao Root s: 2.80 cm LAs: 3.98 cm (2.7-4.0cm) RVIDd: 3.57 cm (0.9-3.6cm) IVSd: 1.19 cm (0.6-1.1cm) LVPWd: 1.00 cm (0.6-1.1cm) LVIDd: 4.11 cm (3.9-5.9cm) LVIDs: 2.48 cm LV Mass Index: 76.1 g/m2 LVEDV Index: 32.34 ml/m2 LV % FS 39.6 % LEFT ATRIUM: Normal Ranges: LA Vol A4C: 76.2 ml (22+/-6mL/m2) LA Vol A2C: 84.3 ml LA Vol BP: 83.3 ml LA Vol Index A4C: 38.5ml/m2 LA Vol Index A2C: 42.6 ml/m2 LA Vol Index BP: 42.1 ml/m2 LA Vol A4C: 72.3 ml LA Vol A2C: 80.4 ml LA Vol Index BSA: 38.6 ml/m2 LV SYSTOLIC FUNCTION: Normal Ranges: EF-A4C View: 65 % (>=55%) EF-A2C View: 44 % EF-Biplane: 55 % EF-Visual: 63 % LV EF Reported: 63 % LV DIASTOLIC FUNCTION: Normal Ranges: MV Peak E: 1.19 m/s (0.7-1.2 m/s) MV Peak A: 0.81 m/s (0.42-0.7 m/s) E/A Ratio: 1.48 (1.0-2.2) MV e' 0.067 m/s (>8.0) MV lateral e' 0.08 m/s MV medial e' 0.05 m/s E/e' Ratio: 17.94 (<8.0) MITRAL VALVE: Normal Ranges: MV Vmax: 1.28 m/s (<=1.3m/s) MV peak P.5 mmHg (<5mmHg) MV mean P.6 mmHg (<48mmHg) MV VTI: 38.74 cm (10-13cm) MV DT: 243 msec (150-240msec) MITRAL INSUFFICIENCY: Normal Ranges: MR Vmax: 628.07 cm/s dP/dt: 876 mmHg/s (>1200mmHg/sec) AORTIC VALVE: Normal Ranges: AoV Vmax: 1.40 m/s (<=1.7m/s) AoV Peak P.9 mmHg (<20mmHg) AoV Mean P.4 mmHg (1.7-11.5mmHg) LVOT Max Juan Antonio: 0.84 m/s (<=1.1m/s) AoV VTI: 37.80 cm (18-25cm) LVOT VTI: 24.05 cm LVOT Diameter: 2.06 cm (1.8-2.4cm) AoV Area, VTI: 2.13 cm2 (2.5-5.5cm2) AoV Area,Vmax: 1.99 cm2 (2.5-4.5cm2) AoV Dimensionless Index: 0.64 RIGHT VENTRICLE: RV Basal 2.77 cm RV Mid 2.60 cm RV Major 5.3 cm RV s' 0.16 m/s TRICUSPID VALVE/RVSP: Normal Ranges: Peak TR Velocity: 2.67 m/s RV Syst Pressure: 31 mmHg (< 30mmHg) IVC Diam: 2.13 cm PULMONIC VALVE: Normal Ranges: RVOT Vmax: 0.71 m/s (0.6-0.9m/s) AORTA: Asc Ao Diam 2.73 cm [id number] Bryce Guy MD, [facility] Electronically signed on 03/18/2025 at 6:52:27 PM Final Holden Rosado WELDER SHIELDED METAL ARC-WIND TURBINE DESIGN ENGINEER CV ECHO PROCEDURES Final Result SYNGO from Last 3 Months or Most Recently Relevant to Health Maintenance Insurance MEDICARE PART A AND B MEDICARE PART A AND B Care Teams Aircraft Engine Cylinder Mechanic Relationship Specialty Start Date End Date Nathan Bateman DO [address] [facility] [place] [address] PCP - General Internal Medicine 03/09/25
--- OUTSIDE RECORDS SUMMARY | 2025-06-23 07:00 | XMS_ITS | Encounter Summary ---
Author Organization [facility] Address [address] [place] [address] Care Team Providers Care Joint Setter Name Role Phone Nathan Bateman DO Primary Care Provider [phone] Source Comments In the event this information is protected by the Federal Confidentiality of Alcohol and Drug AbusePatient Records regulations: The Federal rules restrict any use of the information to criminally investigate or prosecute any alcohol or drug abuse patient.[facility] Encounter Details Date Type Department Care Team (Latest Contact Info) Description 06/07/2023 H&P External-NonCCF Provider, External, PA-C Do not [...] is lower risk 8 06/04/2023 Data from: https://www.neighborhoodatlas.medicine.[facility].edu/. Last address used for calculation [address] [place] [address] 06/04/2023 Comments No Sex and Gender Information Value Date Recorded Sex Assigned at Not on file Legal Sex Female 10:14 AM EST Gender Identity Not on file Sexual Orientation Not on file documented as of this encounter Plan of Treatment Not on file documented as of this encounter Visit Diagnoses Not on filedocumented in this encounter Care Teams Joint Setter Relationship Specialty Start Date End Date Nathan Bateman DO PCP - General Internal Medicine 01/31/12 documented as of this encounter
--- OUTSIDE RECORDS SUMMARY | 2025-06-23 07:00 | XMS_ITS | Encounter Summary ---
Author Organization [facility] Address [address] [place] [address] Phone Care Team Providers Care Burglar Alarm Assembler Name Role Phone Fransico Nathan Chinyere REILLY Primary Care Provider [phone] Nathan Bateman DO Primary Care Provider [phone] Encounter Details Date Type Department Care Team (Late st Contact Info) Description 11/05/2023 Scanned Document [facility] [address] [place] [address] Scanning, Generic Provider Social History [...] suspected to have Coronavirus/COVID-19? No / Unsure 10/17/2023 10:43 AM EST documented as of this encounter Plan of Treatment Upcoming Encounters Date Type Department Care Team (Late Contact Info) Description 10/27/2025 2:10 PM EST Office Visit [facility] [address] [facility] [address] [place] [address] Edinson Perry DO [address] [facility] [address] [place], [place] [id number] documented as of this encounter Visit Diagnoses Not on filedocumented in this encounter Additional Health Concerns Assessment Noted Time A fall risk assessment has been complete d for the patient 10/17/2023 11:42 AM EST documented as of this encounter Care Teams Burglar Alarm Assembler Relationship Specialty Start Date End Date Nathan Bateman DO PCP - General Internal Medicine 10/03/23 03/08/25 Nathan Bateman DO [address] [place] [address] PCP - General Internal Medicine 03/09/25 documented as of this encounter
--- OUTSIDE RECORDS SUMMARY | 2025-06-23 07:00 | XMS_ITS | Encounter Summary ---
Author Organization [facility] Address [address] [place] [address] Phone Care Team Providers Care Christian Science Reader Name Role Phone Nathan Bateman DO Primary Care Provider [phone] Nathan Bateman DO Primary Care Provider [phone] Nathan Bateman DO Primary Care Provider [phone] Encounter Details Date Type Department Care Team (Late st Contact Info) Description 05/18/2023 Scanned Document [facility] [address] [place] [id number] Scanning, Generic Provider Social History Tobacco Use [...] Description 10/27/2025 2:10 PM EST Office Visit [facility] [address] [facility] [address] [place] [phone] Edinson Perry DO [address] [facility] [address] [place], [place] [id number] documented as of this encounter Visit Diagnoses Not on filedocumented in this encounter Care Teams Christian Science Reader Relationship Specialty Start Date End Date Nathan Bateman DO PCP - General 03/07/23 10/02/23 Nathan Bateman DO PCP - General Internal Medicine 10/03/23 03/08/25 Nathan Bateman DO [address] [place] [address] PCP - General Internal Medicine 03/09/25 documented as of this encounter
--- OUTSIDE RECORDS SUMMARY | 2025-06-23 07:00 | XMS_ITS | Encounter Summary ---
Author Organization [facility] Address [address] [place] [address] Phone Care Team Providers Care Tree Trimming Line Technician Name Role Phone Nathan Bateman DO Primary Care Provider [phone] Nathan Bateman DO Primary Care Provider [phone] Nathan Bateman DO Primary Care Provider [phone] Encounter Details Date Type Department Care Team (Late st Contact Info) Description 05/17/2023 Scanned Document [facility] [address] [place] [phone] Scanning, Generic Provider Social History Tobacco Use [...] Description 10/27/2025 2:10 PM EST Office Visit [facility] [address] [facility] [address] [place] [address] Edinson Perry DO [address] [facility] [address] [place] [address] Scheduled Orders Name Type Priority Associated Diagnoses Orde r Schedule GENEDX - 2BP RESULTED Lab Ord ered: 05/17/2023 documented as of this encounter Visit Diagnoses Not on filedocumented in this encounter Care Teams Tree Trimming Line Technician Relationship Specialty Start Date End Date Nathan Bateman DO PCP - General 03/07/23 10/02/23 Nathan Bateman DO PCP - General Internal Medicine 10/03/23 03/08/25 Nathan Bateman DO [address] [place] [address] PCP - General Internal Medicine 03/09/25 documented as of this encounter
--- OUTSIDE RECORDS SUMMARY | 2025-06-23 07:02 | XMS_ITS | CCD ---
Author Organization [facility] Care Team Providers Care Advertising Display Rotator Name Role Phone Nathan Hathaway DO Primary Care Provider Nathan Hathaway Unavailable Unavailable Unavailable DR NATHAN HATHAWAY Primary Care Unavailable LIZZETTE, DR BRISSA Doherty Consulting Unavailabl e TYLER, DR KOFI Kat Admitting Unavailable NADEREBeth, DR KOFI Kat Attending Unavailable NADERER, DR [...] Care Unavailable DO Jonna Perry Attending Provider [phone] DO Nathan Hathaway Primary Care Provider Nathan Hathaway Unavailable [place], Dr. Edinson Hinojosa Attending Darleneva jen Hathaway, Dr. Nathan Maxwell Primary Care Ericka Perry, Dr. Edinson Hinojosa Attending Aura Perry, Dr. Edinson Hinojosa Referring Aura Hathaway, Dr. Nathan Maxwell Primary Care DO Fernando Calderón Emergency Provider DO Lj Ryan Admit Provider DO Lj Ryan Attending Provider Isabela , Nathan Chinyere Primary Care Provider ISABELANATHAN E Primary Care Unavailable BALL, NATHAN E [...] Care Unavailable LUIS MCKENZIE Attending Unavailable Ball , Nathan E Primary Care Provider Isabela, Nathan Primary Care Provider [phone] THONY Rosado Attending Provider [phone] Nathan Hathaway DO Primary Care Provider Nathan Hathaway MD Unavailable Isabela REILLY, Nathan Primary Care Provider Isabela REILLY, Nathan Attending Provider Isabela REILLY, Nathan Chinyere Primary Care Provider Isabela REILLY, Nathan Primary Care Provider Isabela REILLY, Nathan Attending Provider Nathan Hathaway MD Primary Care Provider Nathan Hathaway Primary Care Unavailable Nathan Hathaway Attending Unavailable Nathan Hathaway Admitting Unavailable Isabela, Nathan Primary Care Unavailable Jorge L Cruz Admitting Unavailable Jorge L Cruz Attending Unavailable Isabela, Nathan Primary Care Unavailable Holden Rosado Admitting Unavailable Holden Rosado Attending Unavailable sIabela REILLY Nathan E Primary Care Provider REYNA ESPARZA Attending Unavailable ISABELA NATHAN E Referring Unavailable REYNA ESPARZA Attending Unavailable FERCHO TSE Attending Unavailable Isabela REILLY Nathan E Primary Care Provider Isabela REILLY, Nathan Primary Care Provider [phone] Jorge L Cruz DO Emergency Provider HOLDEN ROSADO Attending Unavailable [place], EDINSON S Referring Unavailable NATHAN HATHAWAY E Primary Care Unavailable [place], EDINSON S Attending Unavailable JOSSUE, HOLDEN K Referring Unavailable ISABELA, NATHAN E Primary Care Unavailable HOLDEN ROSADO Attending Unavailable [place], EDINSON S Referring Unavailable BALL, NATHAN E Primary Care Unavailable ROSADO, HOLDEN K Referring Unavailable BALL, NATHAN E Primary Care Unavailable ROSADO, HOLDEN K Referring Unavailable ISABELA, NATHAN E Primary Care Unavailable Nathan Hathaway DO Primary Care Provider [phone] Isabela REILLY, Nathan Attending Provider [phone] Nathan Hathaway DO Primary Care Provider Isabela REILLY, Nathan Attending Provider [phone] Allergies Allergy Classification Reported Allergen(s) Allergy Type Date of Onset Reaction(s) Facility (20 sources) amLODIPine; Translations: [AMLODIPINE] Drug Allergy 07-27-20 Unknown [facility] (8 sources) Codeine / guaiFENesin; Translations: [CODEINE-GUAIFENESI N] Drug Allergy 07-27-20 Unknown [facility] (8 sources) Doxycycline; Translations: [DOXYCYCLINE HYCLATE] Drug Allergy 07-27-20 Unknown [facility] (20 sources) DULoxetine; Translations: [DULOXETINE] Drug Allergy 07-27-20 Unknown [facility] (20 sources) levoFLOXacin; Translations: [LEVOFLOXACIN] Drug Allergy 07-27-20 Unknown [facility] (20 sources) Ondansetron; Translations: [ONDANSETRON] Drug Allergy 07-27-20 Unknown [facility] Comment on above: Onset Date: 10/29/19 20 (20 sources) Penicillins; Translations: [PENICILLINS] Propensity to adverse reactions to drug 07-27-20 Unknown [facility] (20 sources) Sulfamethoxazole / Trimethoprim; Translations: [Bactrim] Drug Allergy 07-27-20 Unknown, Hives [facility] (8 sources) Tetracycline (class of antibiotic); Translations: [TETRACYCLINES] Propensity to adverse reactions to drug 07-27-20 Unknown [facility] (8 sources) Iodine And Iodide Containing Products; Translations: [IODINE AND IODIDE CONTAINING PRODUCTS] Drug Allergy 01-20-20 Unknown [facility] (20 sources) Tetanus And Diphtheria Toxoids; Translations: [TETANUS AND DIPHTHERIA TOXOIDS] Propensity to adverse reactions to drug 07-27-20 21 Unknown [facility] (20 sources) Amoxicillin Drug Allergy 02-01-20 24 Unknown, Unknown Reaction [facility] (20 sources) Codeine / guaiFENesin Drug Allergy Unknown [facility] Other (20 sources) Doxycycline Drug Allergy 12-09-19 19 Unknown, Unknown Reaction [facility] (20 sources) levoFLOXacin Drug Allergy Unknown [facility] Other (20 sources) Ondansetron; Translations: [Zofran] Drug Allergy 11-05-19 Unknown [facility] (20 sources) Tetanus-Diphtheria Toxoids Td Drug allergy Unknown [facility] Other (20 sources) Allopurinol Drug Allergy 11-05-19 24 Unknown [facility] (1 source) amLODIPine Drug Allergy 11-05-19 20 [facility] (1 source) Doxycycline Drug Allergy [facility] (1 source) DULoxetine Drug Allergy 11-05-19 20 [facility] (1 source) Iodine (And Iodine Containting Drugs) Drug allergy (disorder) 01-20-20 21 [facility] (1 source) Sulfamethoxazole / Trimethoprim Drug Allergy 11-05-19 20 [facility] (4 sources) Sulfonamides (Antibiotic) Allergy to substance 03-08-20 23 Rash [facility] (14 sources) Sulfamethoxazole Drug Allergy 03-09-20 23 Unknown Reaction [facility] (3 sources) Trimethoprim Drug Allergy 03-09-20 23 Unknown Reaction [facility] (20 sources) Pseudoephedrine Drug Allergy 10-29-19 Unknown [facility] Other (20 sources) Tetracycline Drug Allergy Unknown [facility] Other (20 sources) Cheratussin AC *COUGH/COLD/ALLERGY * Propensity to adverse reactions 10-29-19 Unknown [facility] Other (20 sources) Zofran *ANTIEMETICS* Propensity to adverse reactions 10-29-19 Unknown [facility] Other (5 sources) amLODIPine Drug Allergy Unknown [facility] Other (20 sources) Azithromycin; Translations: [AZITHROMYCIN] Drug Allergy 10-17-20 23 rash, Swelling [facility] (20 sources) Codeine Drug Allergy 02-01-20 24 Unknown Reaction [facility] (13 sources) guaiFENesin Drug Allergy 02-01-20 24 Unknown Reaction [facility] (13 sources) 12 Hour Decongestant Allergy to substance 02-01-20 24 Unknown Reaction [facility] Comment on above: Onset Date: 10/29/19 20 (13 sources) Cheratussin AC *COUGH/COLD/ALL Allergy to substance 02-01-20 24 Unknown Reaction [facility] Comment on above: Free Text [...] as needed for 30 days Mar, Active [id number] 200 actuat albuterol 0.09 mg/actuat metered dose [...] or wheezing 8.5 November 26, 2024 10:19am Complies with drug therapy Start: 04-20-2023 take 2 puff(s) by in [...] needed for cough or wheeze February, Not-Taking azithromycin 250 mg oral tablet (10 sources) Macrolide Antimicrobial Start: 09-11-2023 Azithromycin 250 MG as directed Orally daily for 5 days Aug, Active Start: 04-26-2023 Azithromycin 2 50 MG as directed Orally daily for 5 days Mar, Active 60 actuat budesonide 0.16 mg/actuat / formoterol fumarate 0.0045 mg/actuat metered dose inhaler (16 sources) Corticosteroid, beta2-Adrenergic Agonist Start: 12-31-2024 take 2 puff(s) by inhalation every twelve hours Symbicort 160-4.5 mcg/actuation inhaler Inhale 2 puffs every 12 hours. 12/31/2024 Active Start: 12-29-2024 End: 02-12-2025 take 1 puff(s) by inhalation every twelve hours Budesonide-Formoterol 160-4.5 mcg/actuation HFA aerosol inhaler Discontinued 2 PUFF INHALATION Every 12 hours 30.6 90 December 31, 2024 10:25am February 12, 2025 7:33pm 120 actuat budesonide 0.16 mg/actuat / formoterol fumarate 0.0048 mg/actuat / glycopyrrolate 0.009 mg/actuat metered dose inhaler (1 source) Corticosteroid, beta2-Adrenergic Agonist Start: 05-09-2023 take 2 puff(s) by inhalation twice daily Breztri Aerosphere 160-9-4.8 MCG/ACT 2 puffs Inhalation Twice a day Sample Apr, Active bumetanide 0.5 mg oral tablet (1 source) Loop Diuretic Start: 06-19-2025 take 1 tablet by mouth twice daily Bumetanide 0.5 mg tablet Active 0.5 MG PO Twice daily 60 30 June 19, 2025 12:00am Complies with drug therapy Calcium Carbonate (7 sources) calcium carbonate (CALCIUM [...] tablet Discontinued 75 MG PO Daily May 17, 2023 12:00am June 16, 2024 11:42am Start: 05-09-2023 clopidogrel (P LAVIX) 75 mg [...] four times daily as needed for cough guaiFENesin-Codein e 100-10 MG/5ML 10 mL as needed Orally [...] Contrast as designated per enteric contrast guidelines Fluticasone-Salmeter ol 115-21 MCG/ACT (16 sources) Start: take 2 puff(s) by inhalation twice daily Fluticasone-Salmet nabeel 115-21 MCG/ACT 2 puffs Inhalation Twice a [...] MOUTH TWICE DAILY Complies with drug therapy Start: 03-08-2023 End: 08-15-2024 take 1 capsule by mouth three times daily Gabapentin 100 mg capsule Discontinued 100 MG PO Twice daily March 08, 2023 12:00am August 15, 2024 9:28am may take tid if needed take 1 capsule by [facility] twice daily gabapentin (Neurontin) 100 mg capsule Take 1 capsule (100 mg) by mouth 2 times a day. Active take 1 capsule by [facility] every twenty-four hours Gabapentin 100 MG 1 [...] oral capsule (11 sources) Nitrofuran Antibacterial Start: 023 take 1 capsule by mouth every twelve hours Nitrofurantoin Monohyd Macro 100 MG 1 capsule with food Orally every 12 hrs for 5 days Jun, Active pantoprazole 40 mg delayed release oral tablet (20 sources) Proton Pump Inhibitor Start: 025 take 1 tablet by mouth once daily at breakfast Pantoprazole 40 mg tablet,delayed release (DR/EC) Active 0 .ROUTE .COMPLEX 90 November 18, 2024 8:28am TAKE 1 TABLET BY MOUTH DAILY ON AN EMPTY STOMACH FOLLOWED IN 1/2 HOUR BY BREAKFAST Complies with drug therapy Start: 07-05-2021 End: 11-18-2024 take 1 tablet [...] oral tablet (20 sources) Start: 03-08-2023 take 1 tablet by mouth once daily Potassium Chloride 10 mEq tablet extended release Active 10 MEQ PO Daily February 12, 2025 12:00am Complies with drug therapy Start: 03-08-2023 End: 04-22-2024 Potassium Chloride 10 [...] 90 Refills: 3 Ordered: 07-Mar-2023 DO Active rosuvastatin calcium 40 mg oral tablet (20 sources) HMG-CoA Reductase Inhibitor Start: 11-18-2024 take 1 tablet by mouth once daily Rosuvastatin 40 mg tablet Active 0 .ROUTE .COMPLEX November 18, 2024 8:24am TAKE 1 TABLET BY MOUTH DAILY Complies with drug therapy Start: 11-18-2024 take 1 tablet by tina th once daily Rosuvastatin 40 mg tablet Active 0 .ROUTE .COMPLEX November 18, 2024 8:24am TAKE 1 TABLET BY MOUTH DAILY Start: 02-02-2024 End: 10-08-2025 take 1 tablet by mouth once daily Rosuvastatin 40 mg tablet Discontinued 40 MG PO Daily February 06, 2024 12:11pm November 18, 2024 8:24am triamcinolone acetonide 5 mg/ml topical cream (20 sources) Corticosteroid Start: 01-31-2024 triamcinolone (Kenalog) 0.5 % cream 01/31/2024 Active Start: 01-31-2024 triamcinolone (Kenalog) 0.5 % cream Twice daily 01/31/2024 Active Start: 01-31-2024 End: 02-12-2025 Triamcinolone Acetonide 0.5 % cream Discontinued 1 APPLIC TOPICAL Twice daily January 31, 2024 12:00am February 12, 2025 6:39am Start: 01-31-2024 End: 02-12-2025 Triamcinolone Acetonide 0.1 % paste Discontinued 1 APPLIC DENTAL January 31, 2024 12:00am February 12, 2025 6:39am 1 application do not rinse afterwards and [...] a day for 14 days Mar, Active Umeclidinium-Vilanterol (17 sources) Anticholinergic, beta2-Adrenergic Agonist Start: 05-19-2025 Umeclidinium-Vilanterol (Anoro Ellipta) 62.5-25 mcg/actuation blister with device Active 1 INH INHALATION Daily 180 90 May 19, 2025 3:59pm Complies with drug therapy Start: 05-15-2025 End: 05-19-2025 Umeclidinium-Vilanterol (Ano ro Ellipta) 62.5-25 mcg/actuation blister with device Discontinued 1 INH INHALATION Daily 180 90 May 15, 2025 11:55am May 19, 2025 4:04pm Start: 03-19-2025 End: 05-15-2025 Umeclidinium-Vilanterol (Ano ro Ellipta) 62.5-25 mcg/actuation blister with device Discontinued 1 INH INHALATION Daily 180 90 March 19, 2025 11:38am May 15, 2025 11:55am Start: 03-19-2025 End: 03-19-2025 Umeclidinium-Vilanterol (Ano ro Ellipta) 62.5-25 mcg/actuation blister with device Discontinued 1 INH INHALATION Daily 60 30 March 19, 2025 11:37am March 19, 2025 11:46am Start: 03-13-2025 End: 03-13-2025 Umeclidinium-Vilanterol (Ano ro Ellipta) 62.5-25 mcg/actuation blister with device Discontinued 1 INH INHALATION Daily 60 March 13, 2025 9:43am March 13, 2025 1:43pm Start: 02-12-2025 Anoro Ellipta 62.5-25 MCG/ACT aerosol powder USE 1 INHALATION BY MOUTH DAILY 02/12/2025 Active Start: 02-12-2025 End: 03-13-2025 Umeclidinium-Vilanterol (Ano ro Ellipta) 62.5-25 mcg/actuation blister with device Discontinued 1 INH INHALATION Daily 60 February 12, 2025 12:00am March 13, 2025 1:20pm Umeclidinium-Vilanterol (Anoro Ellipta) 62.5-25 mcg/actuation blister with device (1 source) Start: 03-19-2025 Umeclidinium-Vilanterol (Anoro Ellipta) 62.5-25 mcg/actuation blister with device Active 1 INH INHALATION Daily 180 90 March 19, 2025 11:38am valsartan 80 mg oral tablet (10 sources) Angiotensin 2 Receptor Humaira Start: 10-08-2024 End: 10-08-2025 take 1 tablet by mouth once daily Valsartan 80 mg tablet Active 80 MG PO Daily 30 October 08, 2024 1:00am Complies with drug therapy {20 (nirmatrelvir 150 MG Oral Tablet) / 10 (ritonavir 100 MG Oral Tablet) } Pack [Paxlovid 5-Day] (9 sources) Start: 07-23-2023 take 3 tablets by mouth every twelve hours Paxlovid (300/100) 20 x 150 MG & 10 x 100MG 3 tablets Orally Twice a day for 5 days Jun, Active Completed/Discontinued Medications Medication Drug Class(es) Dates Sig (Normalized) Sig (Original) ALPRAZolam 0.25 mg oral tablet (20 sources) Benzodiazepine Start: 09-11-2024 End: 02-12-2025 take 1 tablet by mouth twice daily Alprazolam 0.25 mg tablet Discontinued 0.25 MG PO Twice daily 180 90 January 29, 2025 10:19pm February 12, 2025 7:05am Start: 01-31-2024 End: 09-11-2024 take 1 tablet [...] mout h three times daily as needed. ascorbic acid 500 mg oral tablet (15 sources) Vitamin C Start: 3 End: 3 take 1 tablet by mouth once daily Ascorbic Acid (Vitamin C) (Vitamin C) 500 mg Tablet Discontinued 500 MG PO Daily March 08, 2023 12:00am May 17, 2023 10:50am aspirin 81 mg oral tablet (20 sources) Platelet Aggregation Inhibitor, Nonsteroidal Anti-inflammatory Drug Start: 5 End: 5 take 1 capsule by mouth once daily Aspirin 81 mg capsule Discontinued 81 MG PO Daily February 12, 2025 12:00am March 19, 2025 11:46am Start: 04-18-2023 take 1 tablet by tina th once daily Aspirin 81 81 MG 1 tablet Orally Once a day Mar, Active Start: 03-07-2023 End: 01-12-2025 take 1 tablet by mouth once daily in the morning Aspirin 81 mg tablet,delayed release (DR/EC) Discontinued 81 MG PO Every morning February 27, 2024 10:00am December 16, 2024 11:47am every Mon, Wed, and Fri Comment on above: Take by mouth. benazepril (20 sources) Angiotensin Converting Enzyme Inhibitor Benazepril HCl Not-Taking benzonatate 100 mg oral capsule (20 sources) Non-narcotic Antitussive Start: 02-29-20 14 take 1 capsule by mouth every eight hours Benzonatate 100 MG 1 capsule as needed Orally Three times a day for As needed for cough or wheeze February, Not-Taking busPIRone (20 sources) busPIRone HCl Not-Taking calcium carbonate 1500 mg / cholecalciferol 0.01 mg oral tablet (15 sources) Vitamin D Start: 03-08-20 End: 05-17-20 [...] WITH FOOD/MEAL cefdinir 300 mg oral capsule (14 sources) Cephalosporin Antibacterial Start: End: take 1 capsule by mouth twice daily Cefdinir 300 mg capsule Discontinued 300 MG PO Twice daily 10 5 May 19, 2025 12:00am June 19, 2025 9:32am Start: 02-13-2024 End: 02-26-2024 take 1 capsule by mouth twice daily Cefdinir 300 mg capsule Discontinued 300 MG PO Twice daily 14 February 13, 2024 12:00am February 26, 2024 10:49am Fluticasone Propion-Salmeterol (20 sources) Corticosteroid, beta2-Adrenergic Agonist Start: 11-26-2024 End: 02-12-2025 take 1 puff(s) by inhalation every twelve hours Fluticasone Propion-Salmeterol (Advair Hfa) 115-21 mcg/actuation HFA aerosol inhaler Discontinued 2 PUFF INHALATION Every 12 hours 10 27November 26, 2024 10:19am February 12, 2025 6:38am On Hold: None Start: 11-26-2024 take 1 [...] Do not swallow. 02/25/2025 Discontinued (Therapy completed) furosemide 20 mg oral tablet (20 sources) Loop Diuretic Start: 10-06-2024 End: 12-19-2024 Furosemide 20 mg tablet Discontinued 0 .ROUTE .COMPLEX 180 October 06, 2024 1:59pm December 19, 2024 5:28pm TAKE 1 TABLET BY MOUTH 1 TO 2 TIMES DAILY NEEDED Start: 05-18-2023 End: 02-12-2025 take 1 tablet by mouth twice daily Furosemide 20 mg tablet Discontinued 20 MG PO Twice daily 180 December 23, 2024 2:16pm February 12, 2025 7:05am Start: 05-18-2023 End: 10-06-2024 take 1 tablet [...] days 3 times a week Start: 03-08-2023 End: 10-08-2025 take 1 tablet by mouth once daily Furosemide 20 mg tablet Discontinued 20 MG PO Daily February 12, 2025 12:00am June 19, 2025 10:05am Furosemide 20 MG TAKE 1 TABLET BY MOUTH 1 TO 2 TIMES DAILY NEEDED for 90 Active irbesartan 150 mg oral tablet (20 sources) Angiotensin 2 Receptor Humaira Start: 11-28-2022 End: 03-05-2024 take 1 tablet by mouth once daily in the morning Irbesartan 150 mg tablet Discontinued 150 MG PO Every morning March 08, 2023 12:00am February 27, 2024 10:37am take 1 tablet by mouth twice hair ly Irbesartan 150 MG 1 tablet Orally twice daily Active levothyroxine sodium 0.075 mg oral tablet (14 sources) l-Thyroxine Start: 02-19-2024 End: 11-25-2024 take 1 tablet by mouth once daily Levothyroxine 75 mcg tablet Discontinued 75 MCG PO Daily February 26, 2024 12:00am September 15, 2024 10:40am losartan potassium 50 mg oral tablet (20 sources) Angiotensin 2 Receptor Humaira Start: 01-31-2024 End: 02-26-2024 take 1 tablet by mouth twice daily Losartan 50 mg tablet Discontinued 50 MG PO Twice daily January 31, 2024 12:00am February 26, 2024 10:53am Start: 06-15-2023 take 1 tablet by tina [...] Daily March 08, 2023 12:00am Multivitamin Tablet (8 sources) Start: 03-08-2023 End: 05-17-2023 take 1 [...] (20 sources) Dihydropyridine Calcium Channel Humaira Start: 02-20-2024 End: 12-16-2024 take 1 tablet by mouth once daily Nifedipine 30 mg tablet extended release 24hr Discontinued 30 MG PO Daily February 26, 2024 12:00am March 19, 2024 2:54pm Start: 02-20-2024 take 1 tablet by tina every twenty-four hours in the morning NIFEdipine XL (Procardia XL) 30 MG 24 hr tablet Take 30 mg by mouth in the morning. 02/20/2024 Active 24 hr nitroglycerin 0.2 mg/hr transdermal system (17 sources) Nitrate Vasodilator Start: 03-08-2023 End: 05-17-2023 [...] DO Start : 07-Mar-2023 Active new start nystatin [id number] unt/ml oral suspension (2 sources) Polyene Antifungal Start: 02-16-2025 End: 03-19-2025 take 1 mL by mouth four times daily Nystatin 100,000 unit/mL suspension Discontinued 5 ML PO Four times daily 140 7 February 16, 2025 12:00am March 19, 2025 11:47am swish for 30 seconds and swallow Nystatin 100,000 unit/mL suspension (1 source) Start: 02-16-2025 End: 03-19-2025 take 1 mL by mouth four times daily Nystatin 100,000 unit/mL suspension Discontinued 5 ML PO Four times daily 140 7 February 16, 2025 12:00am March 19, 2025 11:47am swish for 30 seconds and swallow pravastatin sodium 40 mg oral tablet (20 [...] a day for 3 day(s) February, Not-Taking psyllium 400 mg oral capsule (2 sources) Start: 03-08-2023 End: 05-17-2023 Psyllium Husk (Metamucil) 0.4 gram Capsule Discontinued 0.4 GM PO Daily as needed for Constipation March 08, 2023 12:00am May 17, 2023 10:50am Psyllium Husk (Metamucil) 0.4 gram Capsule (13 sources) Start: 03-08-2023 End: 05-17-2023 Psyllium Husk [...] 08, 2023 12:00am May 17, 2023 10:51am sacubitril 24 mg / valsartan 26 mg oral tablet (20 sources) Angiotensin 2 Receptor Humaira Start: 02-20-2024 End: 10-08-2024 take 1 tablet by mouth twice daily Sacubitril-Valsartan (Entresto) 24-26 mg tablet Discontinued 1 TAB PO Twice daily February 26, 2024 12:00am March 19, 2024 2:54pm Start: 02-20-2024 take 1 tablet by tina [...] capsule (20 sources) Benzodiazepine Start: 12-21-2022 End: 01-29-2025 take 1 capsule by mouth once daily at bedtime Temazepam 15 mg capsule Discontinued 15 MG PO Daily at bedtime March 08, 2023 12:00am June 13, 2024 2:15pm Temazepam Not-Reji asher Comment on above: Take by mouth at bed time as needed. ticagrelor 90 mg oral tablet (19 sources) Start: 03-09-2023 End: 05-17-2023 take 1 [...] unspecified] Onset: 08-17-2015 Episodic Chronic kidney disease (12 sources) Chronic kidney disease; Translations: [Chronic kidney disease, unspecified] 12-16-2024 Chronic Chronic obstructive pulmonary disease and bronchiectasis (20 sources) Simple chronic bronchitis; Translations: [Simple chronic bronchitis] Onset: 11-24-2024 Chronic Congestive heart failure; nonhypertensive (20 sources) Acute on chronic diastolic heart failure; Translations: [Acute on chronic diastolic (congestive) heart failure] Onset: 02-14-2023 Chronic Comment on above: - [facility] w/ PCI/stent L AD, RCA (Feb, 2023)- Echo w/ LVEF 60%, ELY, normal RV size/function, RVSP 41 - 01/2024 Problem List clean-u p per request of Phys. EHR Cmte - [facility] w/ PCI/stent L AD, RCA (Feb, 2023)- Echo w/ LVEF 60%, ELY, normal RV size/function, RVSP 41 - 01/2024,Echo: LVEF 60-65%, normal RV size/function, mild-mod MR - 02/2025 Coronary atherosclerosis and other heart disease (20 sources) Angina, class III; Translations: [Other and unspecified angina pectoris] Onset: 10-17-2023 Chronic Comment on above: [facility] w/ PCI/stent LAD , RCA (Feb, [...] Chronic Hypertension with complications and secondary hypertension (16 sources) Hypertensive heart disease with heart failure; [...] Onset: 05-24-2015 Chronic Other aftercare (1 source) intermediate (current) use of aspirin; Translations: [COIL WINDER STRAP CURRENT USE OF ASPIRIN] Onset: 02-14-2023 Episodic Other aftercare (1 source) Other fpc (current) drug therapy; Translations: [OTH COIL WINDER STRAP CURRENT DRUG THERAPY] Onset: 02-14-2023 Episodic Other [...] and neck] Episodic Other connective tissue disease (4 sources) Cramp in lower limb; Translations: [Sleep related leg cramps] 01-22-2025 Chronic Other connective tissue disease (2 sources) Sleep related leg cramps; Translations: [Sleep related [...] adrenal gland, unspecified Chronic Other endocrine disorders (20 sources) Adrenal mass; Translations: [Other specified disorders [...] Onset: 02-08-2023 Episodic Other lower respiratory disease (20 sources) Acute cardiac pulmonary edema ; Translations: [Acute pulmonary edema] Onset: 11-24-2024 05-17-2023 Episodic Comment on above: Problem List clean-u p per request of Phys. EHR Cmte Other lower respiratory disease (14 sources) Hypoxia; Translations: [Hypoxemia] 05-17-2023 Episodic Comment [...] right hip] Episodic Other non-traumatic joint disorders (9 sources) Pain in right knee; Translations: [Chronic [...] disorders (20 sources) Obesity; Translations: [Obesity, unspecified] 03-19-2025 Chronic Other nutritional; endocrine; and metabolic disorders [...] 5-7mm TR4 - 08/2024FNA: right nodule 11/17/24 US: right 16mm TR4, left 5-7mm TR4 - 08/2024,FNA: right nodule - 11/17/24,US: no change - 01/2025 Unclassified (3 sources) CONTACT W/AND (SUSP) EXPOS [...] shoulder] Onset: 02-08-2016 Episodic Other eye disorders (8 sources) Dry [...] Onset: 10-17-2023 10-17-2023 Episodic Comment on above: 1997; Spondylosis; intervertebral disc disorders; other back problems [...] glomerular filtrat ion rate (GFR) non- Americanon 03-18-2025 GFR/1.73 sq M.predicted among non-blacks MDRD (S/P/Bld) [Vol rate/Area] Estimated glomerular filtration rate (GFR) non- Low >=60 mL/min/1.73 m 2 [facility] GFR/1.73 sq M.predicted among non-blacks MDRD (S/P/Bld) [Vol rate/Area] 31 mL/min/{1.73_m2} Low >=60 mL/min/1.73 m 2 [facility] Laboratory - Chemistry and C hemistry - challengeon 03-18-2025 Calcium [Mass/Vol] 8.9 mg/dL 8.5-10.1 [facility] Chloride [Moles/Vol] 105 mmol/L 98-107 [facility] CO2 [Moles/Vol] 30.7 mmol/L 21.0-32.0 [facility] Creatinine [Mass/Vol] 1.60 mg/dL High 0.55-1.02 [facility] GFR/1.73 sq M.predicted MDRD (S/P/Bld) [Vol rate/Area] 37 mL/min/{1.73_m2} Low >=60 mL/min/1.73 m 2 [facility] Glucose [Mass/Vol] 112 mg/dL High 74-106 [facility] Potassium [Moles/Vol] 4.4 mmol/L 3.5-5.1 [facility] Sodium [Moles/Vol] 145 mmol/L 136-145 [facility] TSH Qn 3.657 m[IU]/L 0.358-3.740 [facility] Urea nitrogen [Mass/Vol] 33.0 mg/dL High 7.0-18.0 [facility] Urea nitrogen/Creatinine [Mass ratio] 20.6 mg/mg [facility] Serum or plasma anion gap de terminationon 03-18-2025 Anion gap [Moles/Vol] Serum or plasma an ion gap determination [facility] Anion gap [Moles/Vol] 13.7 mmol/L [facility] TRANSTHORACIC ECHO (TTE) COM PLETEon 03-17-2025 TRANSTHORACIC ECHO (TTE) COMPLETE [address], [address] [place] [address] TRANSTHORACIC ECHOCARDIOGRAM REPORT Patient Name: LASHAUN Doherty Physician: [id number] Bryce Guy MD, [facility] Study Date: 03/17/2025 Ordering Provider: [id number] HOLDEN ROSADO MRN/PID: [id number] Fellow: Nurse: Date of /Age: 11 1940 Plastic Technician: Nicolasa Tobias years RDCS, RVT Gender Assigned at F Additional Staff: : Height: 165.10 cm Admit Date: Weight: 90.72 kg Admission Status: BSA / BMI: 1.98 m2 / 33.28 Department Location: [facility] kg/m2 [facility] Blood Pressure: 120 /64 mmHg Study Type: TRANSTHORACIC ECHO (TTE) COMPLETE Diagnosis/ICD: Essential (primary) hypertension-I10; Palpitations-R00.2 Indication: CAD, PTCA-2022, Edema, Hyperlipidemia, Former Smoker CPT Codes: Echo Complete w Full Doppler-91399 Study Detail: The following Echo studies were [...] Diam: 2.13 cm PULMONIC VALVE: Normal Ranges: RV (more content not included)... Normal [facility] Acanthocytes [Presence] in B lood by Light microscopyOrdered By: Jorge L Cruz on 02-12-2025 Acanthocytes LM Ql (Bld) Acanthocytes [Presence] in Blood by Light microscopy [facility] Alanine aminotransferase [En zymatic activity/volume] in Serum or PlasmaOrdered By: Jorge L Cruz on 02-12-2025 ALT [Catalytic activity/Vol] Alanine aminotransferase [Enzymatic activity/volume] in Serum or Plasma [facility] Albumin [Mass/volume] in Ser um or Plasma by Bromocresol green (BCG) dye binding methoOrdered By: Jorge L Cruz on 02-12-2025 Albumin BCG dye [Mass/Vol] Albumin [Mass/volume] in Serum or Plasma by Bromocresol green (BCG) dye binding metho 3.5-5.7 [facility] Alkaline phosphatase [Enzyma tic activity/volume] in Serum or PlasmaOrdered By: Jorge L Cruz on 02-12-2025 ALP [Catalytic activity/Vol] Alkaline phosphatase [Enzymatic activity/volume] in Serum or Plasma 34-104 [facility] Anisocytosis LM Ql (Bld)Orde red By: Jorge L Cruz on 02-12-2025 Anisocytosis Ql (Bld) Anisocytosis [Pres ence] in Blood by Light microscopy [facility] Aspartate aminotransferase [ Enzymatic activity/volume] in Serum or PlasmaOrdered By: Jorge L Cruz on 02-12-2025 AST [Catalytic activity/Vol] Aspartate aminotransferase [Enzymatic activity/volume] in Serum or Plasma 13-39 [facility] B-Type Natriuretic Peptideon 02-12-2025 Natriuretic peptide B (Bld) [Mass/Vol] 246.0 pg/mL High 5-100 [facility] Comment on above: Result Comment: PERF ORMED BY: [facility] [address] [facility] [address] PATHOLOGIST WOOL HANKER RAMEZ MONTES M.D. Performed By: #### S CAN CBC, CK, HS TROP, BNP, PT, PTT ####[facility] [id number] Basophils Auto (Bld) [#/Vol] Ordered By: Jorge L Cruz on 02-12-2025 Basophils (Bld) [#/Vol] Automated basophil count 0.0-0.2 [facility] Basophils/100 WBC Auto (Bld) Ordered By: Jorge L Cruz on 02-12-2025 Basophils/100 WBC (Bld) Automated basophil % . [facility] Bilirubin.total [Mass/volume ] in Serum or PlasmaOrdered By: Jorge L Cruz on 02-12-2025 Bilirubin [Mass/Vol] Bilirubin.total [Mass/volume] in Serum or Plasma 0.3-1.0 [facility] Calcium [Mass/volume] in Ser um or PlasmaOrdered By: Jorge L Cruz on 02-12-2025 Calcium [Mass/Vol] Calcium [Mass/volume ] in Serum or Plasma 8.6-10.3 [facility] Carbon dioxide, total [Moles /volume] in Serum or PlasmaOrdered By: Jorge L Cruz on 02-12-2025 CO2 [Moles/Vol] Carbon dioxide, tota l [Moles/volume] in Serum or Plasma 21.0-31.0 [facility] Chloride [Moles/volume] in S courtney or PlasmaOrdered By: Jorge L Cruz on 02-12-2025 Chloride [Moles/Vol] Chloride [Moles/vol ume] in Serum or Plasma 98-107 [facility] Comprehensive Metabolic Pane arnoldo 02-12-2025 Albumin [Mass/Vol] 3.8 g/dL Normal 3.5-5.7 [facility] Comment on above: Performed By: #### T SH3, CMP, MG #### [address] Albumin/Globulin [Mass ratio] 1.6 {ratio} Normal [facility] Comment on above: Performed By: #### T SH3, CMP, MG #### [address] ALP [Catalytic activity/Vol] 43 U/L Normal 34-104 [facility] Comment on above: Performed By: #### T SH3, CMP, MG #### [address] ALT [Catalytic activity/Vol] 14 U/L Normal 7-52 [facility] Comment on above: Performed By: #### T SH3, CMP, MG #### [address] Anion gap [Moles/Vol] 11.4 mmol/L Normal 6.0-15.0 [facility] Comment on above: Performed By: #### T SH3, CMP, MG #### [address] AST [Catalytic activity/Vol] 19 U/L Normal 13-39 [facility] Comment on above: Performed By: #### T SH3, CMP, MG #### [place] [address] [place] Bilirubin [Mass/Vol] 0.4 mg/dL Normal 0.3-1.0 [facility] Comment on above: Performed By: #### T SH3, CMP, MG #### [address] Calcium [Mass/Vol] 9.1 mg/dL Normal 8.6-10.3 [facility] Comment on above: Performed By: #### T SH3, CMP, MG #### [address] Chloride [Moles/Vol] 107 mmol/L Normal 98-107 [facility] Comment on above: Performed By: #### T SH3, CMP, MG #### [address] CO2 [Moles/Vol] 27.7 mmol/L Normal 21.0-31.0 [facility] Comment on above: Performed By: #### T SH3, CMP, MG #### [address] Creatinine [Mass/Vol] 1.28 mg/dL High 0.60-1.20 [facility] Comment on above: Performed By: #### T SH3, CMP, MG #### [address] Creatinine Clr Calc Pharmacy 37.75 Normal [facility] Comment on above: Performed By: #### T SH3, CMP, MG #### [address] Estimated GFR 41.827 mL/Min Normal [facility] Comment on above: Performed By: #### T SH3, CMP, MG #### [address] Globulin (S) [Mass/Vol] 2.4 g/dL Normal [facility] Comment on above: Performed By: #### T SH3, CMP, MG #### [address] Glucose [Mass/Vol] 102 mg/dL High 70-100 [facility] Comment on above: Result Comment: [facility] Glucose Reference Range is dependent on time and content of last meal. Glucose of more than 200 mg/dL in a nonstressed, ambulatory subject supports the diagnosis of Diabetes Mellitus. ADA recommended reference range Performed By: #### T SH3, CMP, MG #### [facility] [address] [place] [address] [place] Potassium [Moles/Vol] 4.1 mmol/L Normal 3.5-5.1 [facility] Comment on above: Performed By: #### T SH3, CMP, MG #### [facility] [address] [place] [address] [place] Protein [Mass/Vol] 6.2 g/dL Low 6.4-8.9 [facility] Comment on above: Performed By: #### T SH3, CMP, MG #### [facility] [address] [place] [address] [place] Sodium [Moles/Vol] 142 mmol/L Normal 136-145 [facility] Comment on above: Performed By: #### T SH3, CMP, MG #### [facility] [address] [place] [address] [place] Urea nitrogen [Mass/Vol] 28 mg/dL High 7-25 [facility] Comment on above: Performed By: #### T SH3, CMP, MG #### [facility] [address] [place] [id number] [place] Creatine Kinaseon 02-12-2025 CK [Catalytic activity/Vol] 35 U/L Normal 30-223 [facility] Comment on above: Performed By: #### S CAN CBC, CK, HS TROP, BNP, PT, PTT ####[facility] [id number] [place] [address] [place] Creatine kinase [Enzymatic a ctivity/volume] in Serum or PlasmaOrdered By: Jorge L Cruz on 02-12-2025 CK [Catalytic activity/Vol] Creatine kinase [Enzymatic activity/volume] in Serum or Plasma 30-223 [facility] Creatinine [Mass/volume] in Serum or PlasmaOrdered By: Jorge L Cruz on 02-12-2025 Creatinine [Mass/Vol] Creatinine [Mass/v olume] in Serum or Plasma High 0.60-1.20 [facility] ECG 12 lead ECGon 02-12-2025 ECG 12 lead ECG [facility] [address] Electrocardiograph Report Signed Patient: Lashaun Joaquin MR#: [id number] : 1940 Acct:[id number] Age/Sex: 84 / F ADM Date: 02/12/25 Loc: ER Room: Type: [facility] ER Attending Dr: Ordering Provider: Jorge L [...] rhythm Confirmed by Jorge L CRUZ DO ([id number]) on 02/12/2025 10:52:00 AM Referred By: Electronically Signed By: Jorge L CRUZ DO Transcribed By: MUS Signed By Jorge L Cruz DO 0 02/12/25 1052 Normal [facility] Eosinophils Auto (Bld) [#/Vo l]Ordered By: Jorge L Cruz on 02-12-2025 Eosinophils (Bld) [#/Vol] Automated eosinophil count 0.0-0.45 [facility] Eosinophils/100 WBC Auto (Bl d)Ordered By: Jorge L Cruz on 02-12-2025 Eosinophils/100 WBC (Bld) Automated eosinophil % . [facility] Erythrocyte distribution wid th Auto (RBC) [Ratio]Ordered By: Jorge L Cruz on 02-12-2025 Erythrocyte distribution width (RBC) [Ratio] Erythrocyte distribution width [Ratio] by Automated count 11.9-15.3 [facility] Erythrocyte morphology findi ng [Identifier] in BloodOrdered By: Jorge L Cruz on 02-12-2025 RBC morphology finding Nom (Bld) RBC morphology [facility] Globulin Calc (S) [Mass/Vol] Ordered By: Jorge L Cruz on 02-12-2025 Globulin (S) [Mass/Vol] Serum globulin measurement by calculation (mass/volume) [facility] Glucose [Mass/volume] in Ser um or PlasmaOrdered By: Jorge L Cruz on 02-12-2025 Glucose [Mass/Vol] Glucose [Mass/volume ] in Serum or Plasma High 70-100 [facility] Comment on above: ADA recommended refe rence rangeRandom Glucose Reference Range is dependent on time and content of last meal. Glucose of more than 200 mg/dL in a nonstressed, ambulatory subject supports the diagnosis of Diabetes Mellitus. Hematocrit Auto (Bld) [Volum e fraction]Ordered By: Jorge L Cruz on 02-12-2025 Hematocrit (Bld) [Volume fraction] Hematocrit [Volume Fraction] of Blood by Automated count Low 34.0-46.4 [facility] Hemoglobin [Mass/volume] in BloodOrdered By: Jorge L Cruz on 02-12-2025 Hemoglobin (Bld) [Mass/Vol] Hemoglobin [Mass/volume] in Blood Low 11.8-15.4 [facility] INR in Platelet poor plasma by Coagulation assayOrdered By: Jorge L Cruz on 02-12-2025 INR Coag (PPP) [Relative time] INR in Platelet poor plasma by Coagulation assay [facility] Comment on above: INR Therapeutic [...] with mechanical heart valves: 3 - 4.5 Leukocytes [#/volume] correc miguel for nucleated erythrocytes in Blood by Automated counOrdered By: Jorge L Cruz on 02-12-2025 WBC corrected for nucl RBC Auto (Bld) [#/Vol] Leukocytes [#/volume] corrected for nucleated erythrocytes in Blood by Automated coun 3.8-11.6 [facility] Lymphocytes Auto (Bld) [#/Vo l]Ordered By: Jorge L Cruz on 02-12-2025 Lymphocytes (Bld) [#/Vol] Lymphocytes [#/volume] in Blood by Automated count Low 1.00-4.8 [facility] Lymphocytes/100 WBC Auto (Bl d)Ordered By: Jorge L Cruz on 02-12-2025 Lymphocytes/100 WBC (Bld) Lymphocytes/100 leukocytes in Blood by Automated count . [facility] MCH Auto (RBC) [Entitic mass ]Ordered By: Jorge L Cruz on 02-12-2025 MCH (RBC) [Entitic mass] MCH [Entitic mass] by Automated count 24.7-34.3 [facility] MCHC Auto (RBC) [Mass/Vol]Or dered By: Jorge L Cruz on 02-12-2025 MCHC (RBC) [Mass/Vol] MCHC [Mass/volume] by Automated count 32.0-35.0 [facility] MCV Auto (RBC) [Entitic vol] Ordered By: Jorge L Cruz on 02-12-2025 MCV (RBC) [Entitic vol] MCV [Entitic volume] by Automated count 80-100 [facility] Magnesiumon 02-12-2025 Magnesium [Mass/Vol] 2.3 mg/dL Normal 1.9-2.7 [facility] Comment on above: Performed By: #### T SH3, CMP, MG #### [address] Magnesium [Mass/volume] in S courtney or PlasmaOrdered By: Jorge L Cruz on 02-12-2025 Magnesium [Mass/Vol] Magnesium [Mass/vol ume] in Serum or Plasma 1.9-2.7 [facility] Microcytes LM Ql (Bld)Ordere d By: Jorge L Cruz on 02-12-2025 Microcytes Ql (Bld) Microcytes [Presence ] in Blood by Light microscopy [facility] Monocyte distribution width [Entitic volume] in Blood by AutomatedOrdered By: Jorge L Cruz on 02-12-2025 Monocyte distribution width Auto (Bld) [Entitic vol] Monocyte distribution width [Entitic volume] in Blood by Automated High 0.00-20.00 [facility] Comment on above: For adults in ED, MD W > 20.0 may be associated with a higher risk of sepsis during the first 12 hrs of hospital admission Monocytes Auto (Bld) [#/Vol] Ordered By: Jorge L Cruz on 02-12-2025 Monocytes (Bld) [#/Vol] Automated blood monocyte count 0.0-0.8 [facility] Monocytes/100 WBC Auto (Bld) Ordered By: Jorge L Cruz on 02-12-2025 Monocytes/100 WBC (Bld) Automated monocyte % . [facility] Natriuretic peptide B [Mass/ Vol]Ordered By: Jorge L Cruz on 02-12-2025 Natriuretic peptide B (Bld) [Mass/Vol] BNP ser/plas High 5-100 [facility] Neutrophils Auto (Bld) [#/Vo l]Ordered By: Jorge L Cruz on 02-12-2025 Neutrophils (Bld) [#/Vol] Neutrophils [#/volume] in Blood by Automated count 1.8-7.7 [facility] Neutrophils/100 WBC Auto (Bl d)Ordered By: Jorge L Cruz on 02-12-2025 Neutrophils/100 WBC (Bld) Automated neutrophil % . [facility] No Panel InformationOrdered By: Jorge L Cruz on 02-12-2025 Estimated GFR (CKD-EPI) 41.827 mL/Min [facility] Pharm[facility] Creatinine Clearance (Chem 37.75 [facility] Nucleated erythrocytes [Pres ence] in Blood by Automated countOrdered By: Jorge L Cruz on 02-12-2025 Nucleated RBC Auto Ql (Bld) Nucleated erythrocytes [Presence] in Blood by Automated count 0-0.5 [facility] Ovalocytes [Presence] in Blo od by Light microscopyOrdered By: Jorge L Cruz on 02-12-2025 Ovalocytes LM Ql (Bld) Ovalocyte detection [facility] Partial Thromboplastin Timeo n 02-12-2025 aPTT Coag (Bld) [Time] 29.8 s Normal 25.1-36.5 [facility] Comment on above: Result Comment: A he matocrit value greater than 55% may lead to inaccurate results in coagulation testing. Patients having hematocrit values >55% require a special collection tube for coagulation studies. Please contact the laboratory at [phone] for redraw instructions. PERFORMED BY: [facility] [address] [place] [address] PATHOLOGIST WOOL HANKER RAMEZ MONTES M.D. Performed By: #### S CAN CBC, CK, HS TROP, BNP, PT, PTT ####[facility] [id number] [place] [address] [facility] Platelet adequacy [Presence] in Blood by Light microscopyOrdered By: Jorge L Cruz on 02-12-2025 Platelets LM Ql (Bld) Platelet adequacy [Presence] in Blood by Light microscopy Normal [facility] Platelet mean volume Auto (B ld) [Entitic vol]Ordered By: Jorge L Cruz on 02-12-2025 Platelet mean volume (Bld) [Entitic vol] Platelet mean volume [Entitic volume] in Blood by Automated count 6.3-10.7 [facility] Platelet morphology finding [Identifier] in BloodOrdered By: Jorge L Cruz on 02-12-2025 Platelet morphology finding Nom (Bld) Platelet morphology finding [Identifier] in Blood Normal [facility] Platelets Auto (Bld) [#/Vol] Ordered By: Jorge L Cruz on 02-12-2025 Platelets (Bld) [#/Vol] Platelets [#/volume] in Blood by Automated count 150-450 [facility] Poikilocytosis [Presence] in Blood by Light microscopyOrdered By: Jorge L Cruz on 02-12-2025 Poikilocytosis LM Ql (Bld) Poikilocytosis [Presence] in Blood by Light microscopy [facility] Potassium [Moles/volume] in Serum or PlasmaOrdered By: Jorge L Cruz on 02-12-2025 Potassium [Moles/Vol] Potassium [Moles/v olume] in Serum or Plasma 3.5-5.1 [facility] Protein [Mass/volume] in Ser um or PlasmaOrdered By: Jorge L Cruz on 02-12-2025 Protein [Mass/Vol] Protein [Mass/volume ] in Serum or Plasma Low 6.4-8.9 [facility] Prothrombin Time INRon 02-12 INR Coag (PPP) [Relative time] 1.0 {INR} Normal [facility] Comment on above: Result Comment: [...] CBC, CK, HS TROP, BNP, PT, PTT ####[place] [id number] [address] PT Coag (PPP) [Time] 11.3 s Normal 9.0-12.9 [facility] Comment on above: Result Comment: A he matocrit value greater than 55% may lead to inaccurate results in coagulation testing. Patients having hematocrit values >55% require a special collection tube for coagulation studies. Please contact the laboratory at [phone] for redraw instructions. Performed By: #### S CAN CBC, CK, HS TROP, BNP, PT, PTT ####[address] Prothrombin time (PT)Ordered By: Jorge L Cruz on 02-12-2025 PT Coag (PPP) [Time] Prothrombin time (PT) 9.0- 12.9 [facility] Comment on above: A hematocrit value g reater than 55% may lead to inaccurate results in coagulation testing. Patients having hematocrit values >55% require a special collection tube for coagulation studies. Please contact the laboratory at [phone] for redraw instructions. RBC Auto (Bld) [#/Vol]Ordere d By: Jorge L Cruz on 02-12-2025 RBC (Bld) [#/Vol] Erythrocytes [#/volu me] in Blood by Automated count Low 3.60-5.00 [facility] Scan and CBCon 02-12-2025 Acanthocytes Slight Normal [facility] Comment on above: Performed By: #### S CAN CBC, CK, HS TROP, BNP, PT, PTT ####[address] Anisocytosis Ql (Bld) Moderate Normal [facility] Comment on above: Performed By: #### S CAN CBC, CK, HS TROP, BNP, PT, PTT ####[address] Basophils (Bld) [#/Vol] 0.0 10*3/uL Normal 0.0-0.2 [facility] Comment on above: Performed By: #### S CAN CBC, CK, HS TROP, BNP, PT, PTT ####[address] Basophils/100 WBC (Bld) 0.6 % Normal . [facility] Comment on above: Performed By: #### S CAN CBC, CK, HS TROP, BNP, PT, PTT ####[address] Eosinophils (Bld) [#/Vol] 0.1 10*3/uL Normal 0.0-0.45 [facility] Comment on above: Performed By: #### S CAN CBC, CK, HS TROP, BNP, PT, PTT ####[address] Eosinophils/100 WBC (Bld) 1.5 % Normal . [facility] Comment on above: Performed By: #### S CAN CBC, CK, HS TROP, BNP, PT, PTT ####[address] Erythrocyte distribution width (RBC) [Ratio] 13.8 % Normal 11.9-15.3 [facility] Comment on above: Performed By: #### S CAN CBC, CK, HS TROP, BNP, PT, PTT ####[address] Hematocrit (Bld) [Volume fraction] 29.7 % Low 34.0-46.4 [facility] Comment on above: Performed By: #### S CAN CBC, CK, HS TROP, BNP, PT, PTT ####[address] Hemoglobin (Bld) [Mass/Vol] 10.2 g/dL Low 11.8-15.4 [facility] Comment on above: Performed By: #### S CAN CBC, CK, HS TROP, BNP, PT, PTT ####[address] Lymphocytes (Bld) [#/Vol] 0.9 10*3/uL Low 1.00-4.8 [facility] Comment on above: Performed By: #### S CAN CBC, CK, HS TROP, BNP, PT, PTT ####[address] Lymphocytes/100 WBC (Bld) 13.6 % Normal . [facility] Comment on above: Performed By: #### S CAN CBC, CK, HS TROP, BNP, PT, PTT ####[address] MCH (RBC) [Entitic mass] 28.9 pg Normal 24.7-34.3 [facility] Comment on above: Performed By: #### S CAN CBC, CK, HS TROP, BNP, PT, PTT ####[address] MCV (RBC) [Entitic vol] 83.9 fL Normal 80-100 [facility] Comment on above: Performed By: #### S CAN CBC, CK, HS TROP, BNP, PT, PTT ####[address] Mean Corpuscular HGB Conc 34.5 g/dL Normal 32.0-35.0 [facility] Comment on above: Performed By: #### S CAN CBC, CK, HS TROP, BNP, PT, PTT ####[address] Microcytosis Moderate Normal [facility] Comment on above: Performed By: #### S CAN CBC, CK, HS TROP, BNP, PT, PTT ####[address] Monocytes (Bld) [#/Vol] 0.4 10*3/uL Normal 0.0-0.8 [facility] Comment on above: Performed By: #### S CAN CBC, CK, HS TROP, BNP, PT, PTT ####[address] Monocytes/100 WBC (Bld) 21.49 % High 0.00-20.00 [facility] Comment on above: Result Comment: For adults in ED, MDW > 20.0 may be associated with a higher risk of sepsis during the first 12 hrs of hospital admission Performed By: #### S CAN CBC, CK, HS TROP, BNP, PT, PTT ####[address] Monocytes/100 WBC (Bld) 6.6 % Normal . [facility] Comment on above: Performed By: #### S CAN CBC, CK, HS TROP, BNP, PT, PTT ####[address] Neutrophils (Bld) [#/Vol] 4.9 10*3/uL Normal 1.8-7.7 [facility] Group Comment on above: Performed By: #### S CAN CBC, CK, HS TROP, BNP, PT, PTT ####[address] Neutrophils/100 WBC (Bld) 77.7 % Normal . [facility] Comment on above: Performed By: #### S CAN CBC, CK, HS TROP, BNP, PT, PTT ####[address] NRBC% 0.1 /100{WBC} Normal 0-0.5 [facility] Comment on above: Performed By: #### S CAN CBC, CK, HS TROP, BNP, PT, PTT ####[address] Ovalocytes Slight Normal [facility] Comment on above: Performed By: #### S CAN CBC, CK, HS TROP, BNP, PT, PTT ####[address] Platelet Estimate Normal Normal Normal [facility] Comment on above: Performed By: #### S CAN CBC, CK, HS TROP, BNP, PT, PTT ####[address] Platelet mean volume (Bld) [Entitic vol] 7.7 fL Normal 6.3-10.7 [facility] Comment on above: Performed By: #### S CAN CBC, CK, HS TROP, BNP, PT, PTT ####[address] Platelet Morphology Normal Normal Normal [facility] Comment on above: Result Comment: PERF ORMED BY: [facility] [address] [place] [address] PATHOLOGIST WOOL HANKER RAMEZ MONTES M.D. Performed By: #### S CAN CBC, CK, HS TROP, BNP, PT, PTT ####[place] [id number] [facility] Platelets (Bld) [#/Vol] 383 10*3/uL Normal 150-450 [facility] Comment on above: Performed By: #### S CAN CBC, CK, HS TROP, BNP, PT, PTT ####[address] Poikilocytosis Moderate Normal [facility] Comment on above: Performed By: #### S CAN CBC, CK, HS TROP, BNP, PT, PTT ####[address] RBC (Bld) [#/Vol] 3.54 10*6/uL Low 3.60-5.00 [facility] Comment on above: Performed By: #### S CAN CBC, CK, HS TROP, BNP, PT, PTT ####[place] [id number] [facility] WBC (Bld) [#/Vol] 6.3 10*3/uL Normal 3.8-11.6 [facility] Comment on above: Performed By: #### S CAN CBC, CK, HS TROP, BNP, PT, PTT ####[address] WBC (Bld) [#/Vol] 7.6 10*3/uL Normal 3.8-11.6 [facility] Comment on above: Performed By: #### S CAN CBC, CK, HS TROP, BNP, PT, PTT ####[place] [address] [place] [id number] [facility] Serum or plasma albumin/glob ulin mass ratioOrdered By: Jorge L Cruz on 02-12-2025 Albumin/Globulin [Mass ratio] Serum or plasma albumin/globulin mass ratio [facility] Serum or plasma anion gap de terminationOrdered By: Jorge L Cruz on 02-12-2025 Anion gap [Moles/Vol] Serum or plasma an ion gap determination 6.0-15.0 [facility] Sodium [Moles/volume] in Ser um or PlasmaOrdered By: Jorge L Caldwellisabell on 02-12-2025 Sodium [Moles/Vol] Sodium [Moles/volume ] in Serum or Plasma 136-145 [facility] Thyroid Stimulating Hormoneo n 02-12-2025 TSH Qn 6.48 m[IU]/L High 0.45-5.33 [facility] Comment on above: Result Comment: PERF ORMED BY: [place] [address] PATHOLOGIST WOOL HANKER RAMEZ MONTES M.D. Performed By: #### T SH3, CMP, MG #### [facility] [address] [place] [address] Thyrotropin [Units/volume] i n Serum or PlasmaOrdered By: Jorge L Cruz on 02-12-2025 TSH Qn Thyrotropin [Units/volume] in Serum or Plasma High 0.45-5.33 [facility] Troponin I High Sensitivityo n 02-12-2025 Troponin I High Sensitivity 10 Normal 0-15 [facility] Comment on above: Result Comment: The Troponin units of report have been changed to meet the Chest Pain Accreditation requirement, element EC5.M1l2. Troponin units are changed from pg/ml to ng/L. Also, the decimal is removed and results are in whole numbers. PERFORMED BY: [place] [address] PATHOLOGIST WOOL HANKER RAMEZ MONTES M.D. Performed By: #### H S TROP ####[place] [address] [facility] Troponin I High Sensitivity 10 Normal 0-15 [facility] Comment on above: Result Comment: The Troponin units of report have been changed to meet the Chest Pain Accreditation requirement, element EC5.M1l2. Troponin units are changed from pg/ml to ng/L. Also, the decimal is removed and results are in whole numbers. PERFORMED BY: [place] [address] PATHOLOGIST WOOL HANKER RAMEZ MONTES M.D. Performed By: #### S CAN CBC, CK, HS TROP, BNP, PT, PTT ####[facility] [id number] Troponin I.cardiac [Mass/vol ume] in Serum or Plasma by Detection limit <= 0.01 ng/Ordered By: Jorge L Cruz on 02-12-2025 Troponin I.cardiac DL <= 0.01 ng/mL [Mass/Vol] Troponin I.cardiac [Mass/volume] in Serum or Plasma by Detection limit <= 0.01 ng/ 0-15 [facility] Comment on above: The Troponin units o f report have been changed to meet the Chest Pain Accreditation requirement, element EC5.M1l2. Troponin units are changed from pg/ml to ng/L. Also, the decimal is removed and results are in whole numbers. Urea nitrogen [Mass/volume] in Serum or PlasmaOrdered By: Jorge L Cruz on 02-12-2025 Urea nitrogen [Mass/Vol] Urea nitrogen [Mass/volume] in Serum or Plasma High 7-25 [facility] WBC Auto (Bld) [#/Vol]Ordere d By: Jorge L Cruz on 02-12-2025 WBC (Bld) [#/Vol] Leukocytes [#/volume ] in Blood by Automated count 3.8-11.6 [facility] XR chest 2V*on 02-12-2025 XR chest 2V* [facility] [address] [place] [address] XRay Report Signed Patient: Lashaun Joaquin MR#: [id number] : 1940 Acct:[id number] Age/Sex: 84 / F ADM Date: 02/12/25 Loc: ER Room: Type: [facility] ER Attending Dr: Copies to: Jorge L [...] Lyon Jr., D.OManuel02/12/2025 8:16 AM Dictation Location: [place] [address] Transcribed By: [facility] 02/12/25815 Dictated By: Epifanio Lyon Jr, DO 02/12/25815 Signed By: 02/12/25815 Normal [facility] aPTT in Platelet poor plasma by Coagulation assayOrdered By: Jorge L Cruz on 02-12-2025 aPTT Coag (PPP) [Time] Activated partial thromboplastin time (aPTT) in platelet poor plasma by coagulation a 25.1-36.5 [facility] Comment on above: A hematocrit value g reater than 55% may lead to inaccurate results in coagulation testing. Patients having hematocrit values >55% require a special collection tube for coagulation studies. Please contact the laboratory at [phone] for redraw instructions[place] [address] Ultrasound Report Signed Patient: LASHAUN JOAQUIN MR#: [id number] : 1940 Acct:[id number] Age/Sex: 84 / F ADM Date: 02/10/25 Loc: US Attending Dr: Reyna Esparza M.D. Ordering Physician: Reyna Esparza M.D. Date of Service: 02/10/25 Procedure(s): US thyroid Accession Number(s): [id number] cc: Nathan Hathaway D.O.; Reyna Esparza M.D. [place] [id number] Patient Name: LASHAUN JOAQUIN MRN: [facility]:[id number] date: 1940 Sex: F Assigned Patient Location: US Current Patient Location: US Accession/Order Number: [id number] Exam Date: 02/10/2025 11:24 Report Date: 02/10/2025 [...] Shelli Israel M.D.02/10/2025 11:33 AM Dictation Location: [place] [address] Electronically authenticated by: [id number] Y Date: 02/10/2025 11:33 Dictated By: Shelli Israel M.D. Signed By: 02/10/25 1136 DD/ 1133 TD/TT: Campus Police Officer: [facility] Radiology, Radiologi MD tana - 02/10/[address] [address] Ultrasound Report Signed Patient: LASHAUN JOAQUIN MR#: [id number] : 1940 Acct:[id number] Age/Sex: 84 / F ADM Date: 02/10/25 Loc: US Attending Dr: Reyna Esparza M.D. Ordering Physician: Reyna Esparza M.D. Date of Service: 02/10/25 Procedure(s): US thyroid Accession Number(s): [id number] cc: Nathan Hathaway D.O.; Reyna Esparza M.D. [place] [id number] Patient Name: LASHAUN JOAQUIN MRN: [facility]:[id number] date: 1940 Sex: F Assigned Patient Location: US Current Patient Location: US Accession/Order Number: [id number] Exam Date: 02/10/2025 11:24 Report Date: 02/10/2025 [...] Shelli Israel M.D.02/10/2025 11:33 AM Dictation Location: [place] [address] Electronically authenticated by: [id number] Y Date: 02/10/2025 11:33 Dictated By: Shelli Israel M.D. Signed By: 02/10/25 1136 DD/ 1133 TD/TT: Campus Police Officer: [facility] Radiology Study observation (narrative) [facility] US Thyroid glandOrdered By: Radiologist Radiology on 02-10-2025 [facility] Work Phone: Estimated glomerular filtrat ion rate (GFR) non- Americanon 01-23-2025 GFR/1.73 sq M.predicted among non-blacks MDRD (S/P/Bld) [Vol rate/Area] Estimated glomerular filtration rate (GFR) non- Low >=60 mL/min/1.73 m 2 [facility] Laboratory - Chemistry and C hemistry - challengeon 01-23-2025 Calcium [Mass/Vol] 8.9 mg/dL 8.5-10.1 [facility] Chloride [Moles/Vol] 106 mmol/L 98-107 [facility] CO2 [Moles/Vol] 28.0 mmol/L 21.0-32.0 [facility] Creatinine [Mass/Vol] 1.42 mg/dL High 0.55-1.02 [facility] GFR/1.73 sq M.predicted MDRD (S/P/Bld) [Vol rate/Area] 43 mL/min/{1.73_m2} Low >=60 mL/min/1.73 m 2 [facility] Glucose [Mass/Vol] 116 mg/dL High 74-106 [facility] Potassium [Moles/Vol] 3.9 mmol/L 3.5-5.1 [facility] Sodium [Moles/Vol] 145 mmol/L 136-145 [facility] Urea nitrogen [Mass/Vol] 21.0 mg/dL High 7.0-18.0 [facility] Urea nitrogen/Creatinine [Mass ratio] 14.8 mg/mg [facility] Serum or plasma anion gap de terminationon 01-23-2025 Anion gap [Moles/Vol] Serum or plasma an ion gap determination [facility] Laboratory - Chemistry and C hemistry - challengeon 12-29-2024 Bilirubin Ql (U) Negative [facility] Glucose (U) [Mass/Vol] Negative [facility] Ketones Ql (U) Negative [facility] pH (U) 5 [pH] [facility] Specific gravity (U) [Rel density] 1.000 [facility] Urobilinogen (U) [Mass/Vol] Negative [facility] Laboratory - Specimen inform ationon 12-29-2024 Appearance (U) clear [facility] Color (U) yellow [facility] Laboratory - Urinalysison Leukocyte esterase Test strip Ql (U) Negative [facility] Nitrite Ql (U) Negative [facility] Protein Ql (U) 0.2 [facility] No Panel Informationon 12-29 Urine Occult Blood ++ [facility] Estimated glomerular filtrat ion rate (GFR) non- Americanon 12-18-2024 GFR/1.73 sq M.predicted among non-blacks MDRD (S/P/Bld) [Vol rate/Area] Estimated glomerular filtration rate (GFR) non- Low >=60 mL/min/1.73 m 2 [facility] Laboratory - Chemistry and C hemistry - challengeon 12-18-2024 Calcium [Mass/Vol] 8.9 mg/dL 8.5-10.1 [facility] Chloride [Moles/Vol] 105 mmol/L 98-107 [facility] CO2 [Moles/Vol] 30.4 mmol/L 21.0-32.0 [facility] Creatinine [Mass/Vol] 1.57 mg/dL High 0.55-1.02 [facility] Free T4 [Mass/Vol] 0.90 ng/dL 0.76-1.46 [facility] GFR/1.73 sq M.predicted MDRD (S/P/Bld) [Vol rate/Area] 38 mL/min/{1.73_m2} Low >=60 mL/min/1.73 m 2 [facility] Glucose [Mass/Vol] 119 mg/dL High 74-106 [facility] Potassium [Moles/Vol] 4.1 mmol/L 3.5-5.1 [facility] Sodium [Moles/Vol] 143 mmol/L 136-145 [facility] TSH Qn 2.650 m[IU]/L 0.358-3.740 [facility] Urea nitrogen [Mass/Vol] 28.0 mg/dL High 7.0-18.0 [facility] Urea nitrogen/Creatinine [Mass ratio] 17.8 mg/mg [facility] Serum or plasma anion gap de terminationon 12-18-2024 Anion gap [Moles/Vol] Serum or plasma an ion gap determination [facility] INR in Platelet poor plasma by Coagulation assayOrdered By: Nathan Hathaway on 11-17-2024 INR Coag (PPP) [Relative time] INR in Platelet poor plasma by Coagulation assay [facility] Comment on above: INR Therapeutic [...] [id number] Received: 11/17/24 Status: SERENITY Rojas Num: [id number] Spec Type: Cytology Subm Dr: Seth Ley DO Tissues: A FNA SLIDES PATH (FNA THYROID) Procedures: -, DIFF QWIK/3, PAPSTN/4 Age/ Patient Sex Location Account Attending Physician Lashaun Joaquin 84/F [id number] Nathan Hathaway DO SPEC NUM: [id number] RECD: 11/17/24-1307 STATUS: SERENITY ROJAS NUM: [id number] JED: 11/17/24- SUBM DR: Seth Ley DO ENTERED: 11/17/24-[address] [facility] [address]: Nathan Hathaway DO SPEC TYPE: Cytology DEPT: CNG ENTERED BY: [id number] RECV BY: [id number] ORDERED: -, DIFF QWIK/3, PAPSTN/4 ORDERED: -, DIFF QWIK/3, PAPSTN/4 Pathological Diagnosis Thyroid nodule, US-guided FNA: Satisfactory for evaluation. Benign ([place] category I). Clinical Information Thyroid Nodule,adrenal nodule, [...] C25- Received: 11/17/24 Status: SERENITY Rojas Num: [id number] Spec Type: Cytology Subm Dr: Seth Ley DO Tissues: A FNA SLIDES PATH (FNA THYROID) Procedures: -, DIFF QWIK/3, PAPSTN/4 Patient: Karla Joaquinelyn [id number] (Continued) Specimen: [id number] Received: 11/17/24 (Continued) Signed (signature on file) Lala Mast MD 11/18/24 0857 Specimen: [id number] Received: 11/17/24 Status: SERENITY Rojas Num: [id number] Spec Type: Cytology Subm Dr: Seth Ley DO Tissues: A FNA SLIDES PATH (FNA THYROID) Procedures: -, DIFF QWIK/3, PAPSTN/4 Patient: Kemar Joaquinn [id number] (Continued) Specimen: [id number] Received: 11/17/24 (Continued) CPT Codes 29526, 33355 Specimen: [id number] Received: 11/17/24-1308 Status: SERENITY Rojas Num: [id number] Spec Type: Cytology Subm Dr: Seth Ley DO Tissues: A FNA SLIDES PATH (FNA THYROID) Procedures: -, DIFF QWIK/3, PAPSTN/4 Patient: Kemar Joaquinn [id number] (Continued) Signed (signature on file) Lala Mast MD 11/18/24 0857 Normal [facility] Partial Thromboplastin Timeo n 11-17-2024 aPTT Coag (Bld) [Time] 28.9 s Normal 25.1-36.5 [facility] Comment on above: Result Comment: A he matocrit value greater than 55% may lead to inaccurate results in coagulation testing. Patients having hematocrit values >55% require a special collection tube for coagulation studies. Please contact the laboratory at [phone] for redraw instructions. PERFORMED BY: [facility] [address] [place] [address] PATHOLOGIST WOOL HANKER RAMEZ MONTES M.D. Performed By: #### P TT, PT #### [facility] [address] [place] [address] [facility] Platelet Counton 11-17-2024 Platelets (Bld) [#/Vol] 253 10*3/uL Normal 150-450 [facility] Comment on above: Result Comment: PERF ORMED BY: [place] [address] PATHOLOGIST WOOL HANKER RAMEZ MONTES M.D. Performed By: #### P LT #### [address] Platelets Auto (Bld) [#/Vol] Ordered By: Nathan Hathaway on 11-17-2024 Platelets (Bld) [#/Vol] Platelets [#/volume] in Blood by Automated count 150-450 [facility] Prothrombin Time INRon 11-17 INR Coag (PPP) [Relative time] 1.0 {INR} Normal [facility] Comment on above: Result Comment: [...] Performed By: #### P TT, PT #### [address] PT Coag (PPP) [Time] 11.9 s Normal 9.0-12.9 [facility] Comment on above: Result Comment: A he matocrit value greater than 55% may lead to inaccurate results in coagulation testing. Patients having hematocrit values >55% require a special collection tube for coagulation studies. Please contact the laboratory at [phone] for redraw instructions. Performed By: #### P TT, PT #### [address] Prothrombin time (PT)Ordered By: Nathan Hathaway on 11-17-2024 PT Coag (PPP) [Time] Prothrombin time (PT) 9.0- 12.9 [facility] Comment on above: A hematocrit value g reater than 55% may lead to inaccurate results in coagulation testing. Patients having hematocrit values >55% require a special collection tube for coagulation studies. Please contact the laboratory at [phone] for redraw instructions. US needle aspirationon 11-17 US needle aspiration [facility] [address] [place], [place] [id number] Ultrasound Report Signed Patient: Lashaun Joaquin MR#: [id number] : 1940 Acct:[id number] Age/Sex: 84 / F ADM Date: 11/17/24 Loc: Room: Type: [facility] Attending Dr: Nathan Hathaway DO Ordering Provider: [...] Seth Ley M.D.11/17/2024 12:41 PM Dictation Location: [place] [address] Tech: Deja Ruel Transcribed By: [facility] 11/17/24 1241 Dictated By: Seth Ley DO 11/17/24 1159 Signed By: 11/17/24 1241 Normal [facility] aPTT in Platelet poor plasma by Coagulation assayOrdered By: Nathan Hathaway on 11-17-2024 aPTT Coag (PPP) [Time] Activated partial thromboplastin time (aPTT) in platelet poor plasma by coagulation a 25.1-36.5 [facility] Comment on above: A hematocrit value g reater than 55% may lead to inaccurate results in coagulation testing. Patients having hematocrit values >55% require a special collection tube for coagulation studies. Please contact the laboratory at [phone] for redraw instructions. Estimated glomerular filtrat ion rate (GFR) non- Americanon 09-12-2024 GFR/1.73 sq M.predicted among non-blacks MDRD (S/P/Bld) [Vol rate/Area] Estimated glomerular filtration rate (GFR) non- Low >=60 mL/min/1.73 m 2 [facility] Laboratory - Chemistry and C hemistry - challengeon 09-12-2024 Calcium [Mass/Vol] 8.6 mg/dL 8.5-10.1 [facility] Chloride [Moles/Vol] 108 mmol/L High 98-107 [facility] CO2 [Moles/Vol] 27.0 mmol/L 21.0-32.0 [facility] Creatinine [Mass/Vol] 1.39 mg/dL High 0.55-1.02 [facility] Free T4 [Mass/Vol] 0.80 ng/dL 0.76-1.46 [facility] GFR/1.73 sq M.predicted MDRD (S/P/Bld) [Vol rate/Area] 44 mL/min/{1.73_m2} Low >=60 mL/min/1.73 m 2 [facility] Glucose [Mass/Vol] 85 mg/dL 74-106 [facility] Potassium [Moles/Vol] 4.5 mmol/L 3.5-5.1 [facility] Sodium [Moles/Vol] 144 mmol/L 136-145 [facility] TSH Qn 3.767 m[IU]/L High 0.358-3.740 [facility] Urea nitrogen [Mass/Vol] 20.0 mg/dL High 7.0-18.0 [facility] Urea nitrogen/Creatinine [Mass ratio] 14.4 mg/mg [facility] Serum or plasma anion gap de terminationon 09-12-2024 Anion gap [Moles/Vol] Serum or plasma an ion gap determination [facility] Estimated glomerular filtrat ion rate (GFR) non- Americanon 05-20-2024 GFR/1.73 sq M.predicted among non-blacks MDRD (S/P/Bld) [Vol rate/Area] 39 mL/min/{1.73_m2} Low >=60 [facility] Laboratory - Chemistry and C hemistry - challengeon 05-20-2024 Calcium [Mass/Vol] 8.8 mg/dL 8.5-10.1 [facility] Chloride [Moles/Vol] 106 mmol/L 98-107 [facility] CO2 [Moles/Vol] 30.8 mmol/L 21.0-32.0 [facility] Creatinine [Mass/Vol] 1.30 mg/dL High 0.55-1.02 [facility] GFR/1.73 sq M.predicted MDRD (S/P/Bld) [Vol rate/Area] 48 mL/min/{1.73_m2} Low >=60 [facility] Glucose [Mass/Vol] 89 mg/dL 74-106 [facility] Potassium [Moles/Vol] 4.3 mmol/L 3.5-5.1 [facility] Sodium [Moles/Vol] 143 mmol/L 136-145 [facility] Urea nitrogen [Mass/Vol] 24.0 mg/dL High 7.0-18.0 [facility] Urea nitrogen/Creatinine [Mass ratio] 18.5 mg/mg [facility] Serum or plasma anion gap de terminationon 05-20-2024 Anion gap [Moles/Vol] 10.5 mmol/L [facility] Estimated glomerular filtrat ion rate (GFR) non- Americanon 04-30-2024 GFR/1.73 sq M.predicted among non-blacks MDRD (S/P/Bld) [Vol rate/Area] 37 mL/min/{1.73_m2} Low >=60 [facility] Laboratory - Chemistry and C hemistry - challengeon 04-30-2024 Calcium [Mass/Vol] 8.5 mg/dL 8.5-10.1 [facility] Chloride [Moles/Vol] 106 mmol/L 98-107 [facility] CO2 [Moles/Vol] 28.7 mmol/L 21.0-32.0 [facility] Creatinine [Mass/Vol] 1.36 mg/dL High 0.55-1.02 [facility] GFR/1.73 sq M.predicted MDRD (S/P/Bld) [Vol rate/Area] 45 mL/min/{1.73_m2} Low >=60 [facility] Glucose [Mass/Vol] 98 mg/dL 74-106 [facility] Potassium [Moles/Vol] 4.3 mmol/L 3.5-5.1 [facility] Sodium [Moles/Vol] 142 mmol/L 136-145 [facility] Urea nitrogen [Mass/Vol] 26.0 mg/dL High 7.0-18.0 [facility] Urea nitrogen/Creatinine [Mass ratio] 19.1 mg/mg [facility] Serum or plasma anion gap de terminationon 04-30-2024 Anion gap [Moles/Vol] 11.6 mmol/L [facility] [place] Heart Perfusion W stress and [...] Faustino Zuniga 03/12/2024 4:34 PM Dictation workstation: [id number] Interpreted By: Faustino Zuniga and Giannuzzi Michael STUDY: MYOCARDIAL PERFUSION STRESS TEST WITH LEXISCAN Performing facility: [facility], [address] [place] [address], [address], [address] Provider: Holden Rosado RN, DOCTOR OF DENTAL MEDICINE PCP: Dr. Ksenia Hathaway Supervising provider: Anthony Perry DO, [facility] INDICATION: ASHD HISTORY: Gender: F; Age: 83 y/o ; Height: HT 165.1 cm cm; Weight: WT 88.905 kg kg. CAD; High Cholesterol; HTN; Fatigue; Quit smoking 44 years ago. Cardiac catheterization on 2022. PTCA on 2022. COMPARISON: Previous nuclear testing completed [id number] at [facility]. ACCESSION NUMBER(S): [id number] ORDERING CLINICIAN: HOLDEN ROSADO TECHNIQUE: ONE DAY [...] PERFUSION STRESS TEST WITH LEXISCAN Performing facility: [facility], [address] [place] [address], [address], [address] Provider: Holden Rosado RN, DOCTOR OF DENTAL MEDICINE PCP: Dr. Ksenia Hathaway Supervising provider: Anthony Perry DO, [facility] INDICATION: ASHD HISTORY: Gender: F; Age: 83 y/o ; Height: HT 165.1 cm cm; Weight: WT 88.905 kg kg. CAD; High Cholesterol; HTN; Fatigue; Quit smoking 44 years ago. Cardiac catheterization on 2022. PTCA on 2022. COMPARISON: Previous nuclear testing completed at [facility]. ACCESSION NUMBER(S): [id number] ORDERING CLINICIAN: HOLDEN ROSADO TECHNIQUE: ONE DAY [...] Faustino Zuniga 03/12/2024 4:34 PM Dictation workstation: [id number] [facility] Work Phone: Radiology Study observation (narrative) [facility] Work Phone: [place] Heart Perfusion W stress and W radionuclide IVOrdered By: Faustino Zuniga on 03-12-2024 [facility] Work Phone: Basic Metabolic Panelon GFR/1.73 sq M.predicted MDRD (S/P/Bld) [Vol rate/Area] 39.134 mL/min/{1.73_m2} Normal [facility] Comment on above: Performed By: #### B ####[facility] [place] [address] [facility] Calcium [Mass/volume] in Ser um or PlasmaOrdered By: Holden Rosado on 03-05-2024 Calcium [Mass/Vol] 9.2 mg/dL Normal 8.6-10.3 [facility] Comment on above: Result Comment: PERF ORMED BY: [facility] [address] [id number] PATHOLOGIST WOOL HANKER JAMAAL MO M.D. Performed By: #### B MP ####[place] [id number] [place] [id number] [facility] Carbon dioxide, total [Moles /volume] in Serum or PlasmaOrdered By: Holden Rosado on 03-05-2024 CO2 [Moles/Vol] 32.1 mmol/L High 21.0-31.0 [facility] Comment on above: Performed By: #### B MP ####[place] [id number] [place] [id number] [facility] Chloride [Moles/volume] in S courtney or PlasmaOrdered By: Holden Rosado on 03-05-2024 Chloride [Moles/Vol] 104 mmol/L Normal 98-107 [facility] Comment on above: Performed By: #### B MP ####[place] [id number] [facility] Creatinine [Mass/volume] in Serum or PlasmaOrdered By: Holden Rosado on 03-05-2024 Creatinine [Mass/Vol] 1.36 mg/dL High 0.60-1.20 [facility] Comment on above: Performed By: #### B MP ####[place] [id number] [facility] Glucose [Mass/volume] in Ser um or PlasmaOrdered By: Holden Rosado on 03-05-2024 Glucose [Mass/Vol] 79 mg/dL Normal 70-100 [facility] Comment on above: ADA recommended refe rence rangeRandom Glucose Reference Range is dependent on time and content of last meal. Glucose of more than 200 mg/dL in a nonstressed, ambulatory subject supports the diagnosis of Diabetes Mellitus. Result Comment: Boomer om Glucose Reference Range is dependent on time and content of last meal. Glucose of more than 200 mg/dL in a nonstressed, ambulatory subject supports the diagnosis of Diabetes Mellitus. ADA recommended reference range Performed By: #### B MP ####[address] No Panel InformationOrdered By: Holden Rosado on 03-05-2024 Estimated GFR (CKD-EPI) 39.134 mL/Min [facility] Creatinine Clearance (Chem N/A [facility] Potassium [Moles/volume] in Serum or PlasmaOrdered By: Holden Rosado on 03-05-2024 Potassium [Moles/Vol] 5.2 mmol/L High 3.5-5.1 [facility] Comment on above: Performed By: #### B MP ####[address] Serum or plasma anion gap de terminationOrdered By: Holden Rosado on 03-05-2024 Anion gap [Moles/Vol] 10.1 mmol/L Normal 6.0-15.0 [facility] Comment on above: Performed By: #### B MP ####[address] Sodium [Moles/volume] in Ser um or PlasmaOrdered By: Holden Rosado on 03-05-2024 Sodium [Moles/Vol] 141 mmol/L Normal 136-145 [facility] Comment on above: Performed By: #### B MP ####[address] Urea nitrogen [Mass/volume] in Serum or PlasmaOrdered By: Holden Rosado on 03-05-2024 Urea nitrogen [Mass/Vol] 26 mg/dL High 7-25 [facility] Comment on above: Performed By: #### B MP ####[address] Basophils Auto (Bld) [#/Vol] on 02-20-2024 Basophils (Bld) [#/Vol] 0.0 10 3/uL 0.0-0.1 [facility] Basophils/100 WBC Auto (Bld) on 02-20-2024 Basophils/100 WBC (Bld) 0.8 % 0.2-2.0 [facility] Eosinophils/100 WBC Auto (Bl d)on 02-20-2024 Eosinophils/100 WBC (Bld) 2.8 % 0.9-7.0 [facility] Erythrocyte distribution wid th Auto (RBC) [Ratio]on 02-20-2024 Erythrocyte distribution width (RBC) [Ratio] 13.1 % 11.0-15.0 [facility] Estimated glomerular filtrat ion rate (GFR) non- Americanon 02-20-2024 GFR/1.73 sq M.predicted among non-blacks MDRD (S/P/Bld) [Vol rate/Area] 49 mL/min/{1.73_m2} >=60 [facility] Globulin Calc (S) [Mass/Vol] on 02-20-2024 Globulin (S) [Mass/Vol] 2.7 g/dL [facility] Hematocrit Auto (Bld) [Volum e fraction]on 02-20-2024 Hematocrit (Bld) [Volume fraction] 29.2 % 36.0-48.0 [facility] Hemoglobin [Mass/volume] in Bloodon 02-20-2024 Hemoglobin (Bld) [Mass/Vol] 9.5 g/dL 12.0-16.0 [facility] Laboratory - Chemistry and C hemistry - challengeon 02-20-2024 Albumin [Mass/Vol] 2.9 g/dL 3.4-5.0 [facility] ALP [Catalytic activity/Vol] 44 U/L 46-116 [facility] ALT [Catalytic activity/Vol] 13 U/L 14-59 [facility] AST [Catalytic activity/Vol] 14 U/L 15-37 [facility] Bilirubin [Mass/Vol] 0.6 mg/dL 0.2-1.0 [facility] Calcium [Mass/Vol] 8.9 mg/dL 8.5-10.1 [facility] Chloride [Moles/Vol] 107 mmol/L 98-107 [facility] CO2 [Moles/Vol] 27.9 mmol/L 21.0-32.0 [facility] Creatinine [Mass/Vol] 1.08 mg/dL 0.55-1.02 [facility] GFR/1.73 sq M.predicted MDRD (S/P/Bld) [Vol rate/Area] 59 mL/min/{1.73_m2} >=60 [facility] Glucose [Mass/Vol] 83 mg/dL 74-106 [facility] Potassium [Moles/Vol] 3.8 mmol/L 3.5-5.1 [facility] Protein [Mass/Vol] 5.6 g/dL 6.4-8.2 [facility] Sodium [Moles/Vol] 141 mmol/L 136-145 [facility] Urea nitrogen [Mass/Vol] 18.0 mg/dL 7.0-18.0 [facility] Urea nitrogen/Creatinine [Mass ratio] 16.7 mg/mg [facility] Laboratory - Hematology and Cell countson 02-20-2024 Immature granulocytes/100 WBC (Bld) 0.2 % 0.0-0.5 [facility] Leukocytes [#/volume] correc miguel for nucleated erythrocytes in Blood by Automated counon 02-20-2024 WBC corrected for nucl RBC Auto (Bld) [#/Vol] 4.7 10 3/uL 4.0-11.0 [facility] Lymphocytes Auto (Bld) [#/Vo l]on 02-20-2024 Lymphocytes (Bld) [#/Vol] 1.0 10 3/uL 1.2-3.8 [facility] Lymphocytes/100 WBC Auto (Bl d)on 02-20-2024 Lymphocytes/100 WBC (Bld) 21.8 % 20.5-60.0 [facility] MCH Auto (RBC) [Entitic mass ]on 02-20-2024 MCH (RBC) [Entitic mass] 29.2 pg 26.7-34.0 [facility] MCHC Auto (RBC) [Mass/Vol]on 02-20-2024 MCHC (RBC) [Mass/Vol] 32.5 g/dL 29.9-35.2 [facility] MCV Auto (RBC) [Entitic vol] on 02-20-2024 MCV (RBC) [Entitic vol] 89.8 fL 81.0-99.0 [facility] Monocytes Auto (Bld) [#/Vol] on 02-20-2024 Monocytes (Bld) [#/Vol] 0.7 10 3/uL 0.3-0.8 [facility] Monocytes/100 WBC Auto (Bld) on 02-20-2024 Monocytes/100 WBC (Bld) 14.2 % 1.7-12.0 [facility] Neutrophils Auto (Bld) [#/Vo l]on 02-20-2024 Neutrophils (Bld) [#/Vol] 2.8 10 3/uL 1.4-6.5 [facility] Neutrophils/100 WBC Auto (Bl d)on 02-20-2024 Neutrophils/100 WBC (Bld) 60.2 % 43.0-75.0 [facility] No Panel Informationon 02-19 Eosinophils # (Auto) 0.1 10 3/uL 0.0-0.7 [facility] Immature Granulocyte # (Auto) 0.01 10 3/uL 0.00-0.03 [facility] Platelet mean volume Auto (B ld) [Entitic vol]on 02-20-2024 Platelet mean volume (Bld) [Entitic vol] 10.5 fL 9.5-13.5 [facility] Platelets Auto (Bld) [#/Vol] on 02-20-2024 Platelets (Bld) [#/Vol] 250 10 3/uL 150-450 [facility] RBC Auto (Bld) [#/Vol]on RBC (Bld) [#/Vol] 3.25 10 6/uL 4.20-5.40 [facility] Serum or plasma albumin/glob ulin mass ratioon 02-20-2024 Albumin/Globulin [Mass ratio] 1.1 {ratio} [facility] Serum or plasma anion gap de terminationon 02-20-2024 Anion gap [Moles/Vol] 9.9 mmol/L [facility] Basophils Auto (Bld) [#/Vol] on 02-19-2024 Basophils (Bld) [#/Vol] 0.0 10 3/uL 0.0-0.1 [facility] Basophils/100 WBC Auto (Bld) on 02-19-2024 Basophils/100 WBC (Bld) 0.8 % 0.2-2.0 [facility] Cholesterol in LDL Calc [Mas s/Vol]on 02-19-2024 Cholesterol in LDL [Mass/Vol] 100.4 mg/dL [facility] Comment on above: <100 mg/dl [id number] 0-129 mg/dl NEAR OR ABOVE [id number] mg/dl BORDERLINE [id number] mg/dl HIGH>190 mg/dl VERY HIGH Cholesterol in VLDL Calc [Ma ss/Vol]on 02-19-2024 Cholesterol in VLDL [Mass/Vol] 15.6 mg/dL [facility] Eosinophils/100 WBC Auto (Bl d)on 02-19-2024 Eosinophils/100 WBC (Bld) 1.9 % 0.9-7.0 [facility] Erythrocyte distribution wid th Auto (RBC) [Ratio]on 02-19-2024 Erythrocyte distribution width (RBC) [Ratio] 13.2 % 11.0-15.0 [facility] Estimated glomerular filtrat ion rate (GFR) non- Americanon 02-19-2024 GFR/1.73 sq M.predicted among non-blacks MDRD (S/P/Bld) [Vol rate/Area] 44 mL/min/{1.73_m2} >=60 [facility] Globulin Calc (S) [Mass/Vol] on 02-19-2024 Globulin (S) [Mass/Vol] 2.8 g/dL [facility] Hematocrit Auto (Bld) [Volum e fraction]on 02-19-2024 Hematocrit (Bld) [Volume fraction] 31.2 % 36.0-48.0 [facility] Hemoglobin [Mass/volume] in Bloodon 02-19-2024 Hemoglobin (Bld) [Mass/Vol] 10.0 g/dL 12.0-16.0 [facility] Laboratory - Chemistry and C hemistry - challengeon 02-19-2024 Albumin [Mass/Vol] 3.2 g/dL 3.4-5.0 [facility] ALP [Catalytic activity/Vol] 49 U/L 46-116 [facility] ALT [Catalytic activity/Vol] 15 U/L 14-59 [facility] AST [Catalytic activity/Vol] 15 U/L 15-37 [facility] Bilirubin [Mass/Vol] 0.5 mg/dL 0.2-1.0 [facility] Calcium [Mass/Vol] 9.4 mg/dL 8.5-10.1 [facility] Chloride [Moles/Vol] 108 mmol/L 98-107 [facility] Cholesterol [Mass/Vol] 158 mg/dL <=200 [facility] Cholesterol in HDL [Mass/Vol] 42 mg/dL 40-60 [facility] Comment on above: > or =60 mg/dl - LOW CARDIOVASCULAR RISK<40 mg/dl - HIGH CARDIOVASCULAR RISK CO2 [Moles/Vol] 28.7 mmol/L 21.0-32.0 [facility] Creatinine [Mass/Vol] 1.18 mg/dL 0.55-1.02 [facility] GFR/1.73 sq M.predicted MDRD (S/P/Bld) [Vol rate/Area] 53 mL/min/{1.73_m2} >=60 [facility] Glucose [Mass/Vol] 93 mg/dL 74-106 [facility] Potassium [Moles/Vol] 4.0 mmol/L 3.5-5.1 [facility] Protein [Mass/Vol] 6.0 g/dL 6.4-8.2 [facility] Sodium [Moles/Vol] 145 mmol/L 136-145 [facility] Triglyceride [Mass/Vol] 78 mg/dL <=150 [facility] TSH Qn 4.696 m[IU]/L 0.358-3.740 [facility] Urea nitrogen [Mass/Vol] 20.0 mg/dL 7.0-18.0 [facility] Urea nitrogen/Creatinine [Mass ratio] 16.9 mg/mg [facility] Laboratory - Hematology and Cell countson 02-19-2024 Immature granulocytes/100 WBC (Bld) 0.6 % 0.0-0.5 [facility] Leukocytes [#/volume] correc miguel for nucleated erythrocytes in Blood by Automated counon 02-19-2024 WBC corrected for nucl RBC Auto (Bld) [#/Vol] 5.3 10 3/uL 4.0-11.0 [facility] Lymphocytes Auto (Bld) [#/Vo l]on 02-19-2024 Lymphocytes (Bld) [#/Vol] 1.1 10 3/uL 1.2-3.8 [facility] Lymphocytes/100 WBC Auto (Bl d)on 02-19-2024 Lymphocytes/100 WBC (Bld) 21.3 % 20.5-60.0 [facility] MCH Auto (RBC) [Entitic mass ]on 02-19-2024 MCH (RBC) [Entitic mass] 29.6 pg 26.7-34.0 [facility] MCHC Auto (RBC) [Mass/Vol]on 02-19-2024 MCHC (RBC) [Mass/Vol] 32.1 g/dL 29.9-35.2 [facility] MCV Auto (RBC) [Entitic vol] on 02-19-2024 MCV (RBC) [Entitic vol] 92.3 fL 81.0-99.0 [facility] Monocytes Auto (Bld) [#/Vol] on 02-19-2024 Monocytes (Bld) [#/Vol] 0.6 10 3/uL 0.3-0.8 [facility] Monocytes/100 WBC Auto (Bld) on 02-19-2024 Monocytes/100 WBC (Bld) 11.1 % 1.7-12.0 [facility] Neutrophils Auto (Bld) [#/Vo l]on 02-19-2024 Neutrophils (Bld) [#/Vol] 3.4 10 3/uL 1.4-6.5 [facility] Neutrophils/100 WBC Auto (Bl d)on 02-19-2024 Neutrophils/100 WBC (Bld) 64.3 % 43.0-75.0 [facility] No Panel Informationon 02-18 Eosinophils # (Auto) 0.1 10 3/uL 0.0-0.7 [facility] Immature Granulocyte # (Auto) 0.03 10 3/uL 0.00-0.03 [facility] Platelet mean volume Auto (B ld) [Entitic vol]on 02-19-2024 Platelet mean volume (Bld) [Entitic vol] 10.4 fL 9.5-13.5 [facility] Platelets Auto (Bld) [#/Vol] on 02-19-2024 Platelets (Bld) [#/Vol] 262 10 3/uL 150-450 [facility] RBC Auto (Bld) [#/Vol]on RBC (Bld) [#/Vol] 3.38 10 6/uL 4.20-5.40 [facility] Serum or plasma albumin/glob ulin mass ratioon 02-19-2024 Albumin/Globulin [Mass ratio] 1.1 {ratio} [facility] Serum or plasma anion gap de terminationon 02-19-2024 Anion gap [Moles/Vol] 12.3 mmol/L [facility] Serum or plasma total choles terol/high density lipoprotein (HDL) cholesterol mass anastasia 02-19-2024 Cholesterol.total/Cho lesterol in HDL [Mass ratio] 3.8 {ratio} [facility] Comment on above: 3.3 - 4.4 LOW RISK4. 4 - 7.1 AVERAGE RISK7.1 - 11.0 MODERATE RISK>11.0 HIGH RISK Basophils Auto (Bld) [#/Vol] on 02-18-2024 Basophils (Bld) [#/Vol] 0.0 10 3/uL 0.0-0.1 [facility] Basophils/100 WBC Auto (Bld) on 02-18-2024 Basophils/100 WBC (Bld) 0.4 % 0.2-2.0 [facility] Eosinophils/100 WBC Auto (Bl d)on 02-18-2024 Eosinophils/100 WBC (Bld) 1.2 % 0.9-7.0 [facility] Erythrocyte distribution wid th Auto (RBC) [Ratio]on 02-18-2024 Erythrocyte distribution width (RBC) [Ratio] 13.2 % 11.0-15.0 [facility] Estimated glomerular filtrat ion rate (GFR) non- Americanon 02-18-2024 GFR/1.73 sq M.predicted among non-blacks MDRD (S/P/Bld) [Vol rate/Area] 34 mL/min/{1.73_m2} >=60 [facility] Hematocrit Auto (Bld) [Volum e fraction]on 02-18-2024 Hematocrit (Bld) [Volume fraction] 31.7 % 36.0-48.0 [facility] Hemoglobin [Mass/volume] in Bloodon 02-18-2024 Hemoglobin (Bld) [Mass/Vol] 10.3 g/dL 12.0-16.0 [facility] Laboratory - Chemistry and C hemistry - challengeon 02-18-2024 Magnesium [Mass/Vol] 2.3 mg/dL 1.8-2.4 [facility] Natriuretic peptide B (Bld) [Mass/Vol] 800.0 pg/mL <=1800.0 [facility] Calcium [Mass/Vol] 9.0 mg/dL 8.5-10.1 [facility] Chloride [Moles/Vol] 106 mmol/L 98-107 [facility] CO2 [Moles/Vol] 30.4 mmol/L 21.0-32.0 [facility] Creatinine [Mass/Vol] 1.46 mg/dL 0.55-1.02 [facility] GFR/1.73 sq M.predicted MDRD (S/P/Bld) [Vol rate/Area] 42 mL/min/{1.73_m2} >=60 [facility] Glucose [Mass/Vol] 102 mg/dL 74-106 [facility] Potassium [Moles/Vol] 4.1 mmol/L 3.5-5.1 [facility] Sodium [Moles/Vol] 144 mmol/L 136-145 [facility] Urea nitrogen [Mass/Vol] 21.0 mg/dL 7.0-18.0 [facility] Urea nitrogen/Creatinine [Mass ratio] 14.4 mg/mg [facility] Laboratory - Hematology and Cell countson 02-18-2024 Immature granulocytes/100 WBC (Bld) 0.7 % 0.0-0.5 [facility] Leukocytes [#/volume] correc miguel for nucleated erythrocytes in Blood by Automated counon 02-18-2024 WBC corrected for nucl RBC Auto (Bld) [#/Vol] 6.8 10 3/uL 4.0-11.0 [facility] Lymphocytes Auto (Bld) [#/Vo l]on 02-18-2024 Lymphocytes (Bld) [#/Vol] 0.8 10 3/uL 1.2-3.8 [facility] Lymphocytes/100 WBC Auto (Bl d)on 02-18-2024 Lymphocytes/100 WBC (Bld) 11.2 % 20.5-60.0 [facility] MCH Auto (RBC) [Entitic mass ]on 02-18-2024 MCH (RBC) [Entitic mass] 29.3 pg 26.7-34.0 [facility] MCHC Auto (RBC) [Mass/Vol]on 02-18-2024 MCHC (RBC) [Mass/Vol] 32.5 g/dL 29.9-35.2 [facility] MCV Auto (RBC) [Entitic vol] on 02-18-2024 MCV (RBC) [Entitic vol] 90.1 fL 81.0-99.0 [facility] Monocytes Auto (Bld) [#/Vol] on 02-18-2024 Monocytes (Bld) [#/Vol] 0.6 10 3/uL 0.3-0.8 [facility] Monocytes/100 WBC Auto (Bld) on 02-18-2024 Monocytes/100 WBC (Bld) 9.5 % 1.7-12.0 [facility] Neutrophils Auto (Bld) [#/Vo l]on 02-18-2024 Neutrophils (Bld) [#/Vol] 5.2 10 3/uL 1.4-6.5 [facility] Neutrophils/100 WBC Auto (Bl d)on 02-18-2024 Neutrophils/100 WBC (Bld) 77.0 % 43.0-75.0 [facility] No Panel Informationon 02-17 Troponin I High Sensitivity 11.1 pg/mL 4.0-51.3 [facility] Comment on above: CUT-OFF POINTS [...] Eosinophils # (Auto) 0.1 10 3/uL 0.0-0.7 [facility] Immature Granulocyte # (Auto) 0.05 10 3/uL 0.00-0.03 [facility] Platelet mean volume Auto (B ld) [Entitic vol]on 02-18-2024 Platelet mean volume (Bld) [Entitic vol] 10.1 fL 9.5-13.5 [facility] Platelets Auto (Bld) [#/Vol] on 02-18-2024 Platelets (Bld) [#/Vol] 255 10 3/uL 150-450 [facility] RBC Auto (Bld) [#/Vol]on RBC (Bld) [#/Vol] 3.52 10 6/uL 4.20-5.40 [facility] Serum or plasma anion gap de terminationon 02-18-2024 Anion gap [Moles/Vol] 11.7 mmol/L [facility] Basophils Auto (Bld) [#/Vol] on 02-02-2024 Basophils (Bld) [#/Vol] 0.1 10 3/uL 0.0-0.1 [facility] Basophils/100 WBC Auto (Bld) on 02-02-2024 Basophils/100 WBC (Bld) 1.1 % 0.2-2.0 [facility] Cholesterol in LDL Calc [Mas s/Vol]on 02-02-2024 Cholesterol in LDL [Mass/Vol] 113.6 mg/dL [facility] Comment on above: <100 mg/dl [id number] 0-129 mg/dl NEAR OR ABOVE [id number] mg/dl BORDERLINE INIU381-923 mg/dl HIGH>190 mg/dl VERY HIGH Cholesterol in VLDL Calc [Ma ss/Vol]on 02-02-2024 Cholesterol in VLDL [Mass/Vol] 10.4 mg/dL [facility] Eosinophils/100 WBC Auto (Bl d)on 02-02-2024 Eosinophils/100 WBC (Bld) 2.3 % 0.9-7.0 [facility] Erythrocyte distribution wid th Auto (RBC) [Ratio]on 02-02-2024 Erythrocyte distribution width (RBC) [Ratio] 13.1 % 11.0-15.0 [facility] Estimated glomerular filtrat ion rate (GFR) non- Americanon 02-02-2024 GFR/1.73 sq M.predicted among non-blacks MDRD (S/P/Bld) [Vol rate/Area] 34 mL/min/{1.73_m2} >=60 [facility] Globulin Calc (S) [Mass/Vol] on 02-02-2024 Globulin (S) [Mass/Vol] 3.0 g/dL [facility] Hematocrit Auto (Bld) [Volum e fraction]on 02-02-2024 Hematocrit (Bld) [Volume fraction] 34.7 % 36.0-48.0 [facility] Hemoglobin [Mass/volume] in Bloodon 02-02-2024 Hemoglobin (Bld) [Mass/Vol] 10.9 g/dL 12.0-16.0 [facility] Laboratory - Chemistry and C hemistry - challengeon 02-02-2024 Albumin [Mass/Vol] 3.4 g/dL 3.4-5.0 [facility] ALP [Catalytic activity/Vol] 52 U/L 46-116 [facility] ALT [Catalytic activity/Vol] 13 U/L 14-59 [facility] AST [Catalytic activity/Vol] 14 U/L 15-37 [facility] Bilirubin [Mass/Vol] 0.3 mg/dL 0.2-1.0 [facility] Calcium [Mass/Vol] 9.3 mg/dL 8.5-10.1 [facility] Chloride [Moles/Vol] 109 mmol/L 98-107 [facility] Cholesterol [Mass/Vol] 169 mg/dL <=200 [facility] Cholesterol in HDL [Mass/Vol] 45 mg/dL 40-60 [facility] Comment on above: > or =60 mg/dl - LOW CARDIOVASCULAR RISK<40 mg/dl - HIGH CARDIOVASCULAR RISK CO2 [Moles/Vol] 29.8 mmol/L 21.0-32.0 [facility] Creatinine [Mass/Vol] 1.47 mg/dL 0.55-1.02 [facility] GFR/1.73 sq M.predicted MDRD (S/P/Bld) [Vol rate/Area] 41 mL/min/{1.73_m2} >=60 [facility] Glucose [Mass/Vol] 104 mg/dL 74-106 [facility] Potassium [Moles/Vol] 4.9 mmol/L 3.5-5.1 [facility] Protein [Mass/Vol] 6.4 g/dL 6.4-8.2 [facility] Sodium [Moles/Vol] 147 mmol/L 136-145 [facility] Triglyceride [Mass/Vol] 52 mg/dL <=150 [facility] TSH Qn 3.613 m[IU]/L 0.358-3.740 [facility] Urea nitrogen [Mass/Vol] 24.0 mg/dL 7.0-18.0 [facility] Urea nitrogen/Creatinine [Mass ratio] 16.3 mg/mg [facility] Laboratory - Hematology and Cell countson 02-02-2024 Immature granulocytes/100 WBC (Bld) 0.4 % 0.0-0.5 [facility] Leukocytes [#/volume] correc miguel for nucleated erythrocytes in Blood by Automated counon 02-02-2024 WBC corrected for nucl RBC Auto (Bld) [#/Vol] 5.6 10 3/uL 4.0-11.0 [facility] Lymphocytes Auto (Bld) [#/Vo l]on 02-02-2024 Lymphocytes (Bld) [#/Vol] 1.1 10 3/uL 1.2-3.8 [facility] Lymphocytes/100 WBC Auto (Bl d)on 02-02-2024 Lymphocytes/100 WBC (Bld) 20.2 % 20.5-60.0 [facility] MCH Auto (RBC) [Entitic mass ]on 02-02-2024 MCH (RBC) [Entitic mass] 29.8 pg 26.7-34.0 [facility] MCHC Auto (RBC) [Mass/Vol]on 02-02-2024 MCHC (RBC) [Mass/Vol] 31.4 g/dL 29.9-35.2 [facility] MCV Auto (RBC) [Entitic vol] on 02-02-2024 MCV (RBC) [Entitic vol] 94.8 fL 81.0-99.0 [facility] Monocytes Auto (Bld) [#/Vol] on 02-02-2024 Monocytes (Bld) [#/Vol] 0.7 10 3/uL 0.3-0.8 [facility] Monocytes/100 WBC Auto (Bld) on 02-02-2024 Monocytes/100 WBC (Bld) 11.7 % 1.7-12.0 [facility] Neutrophils Auto (Bld) [#/Vo l]on 02-02-2024 Neutrophils (Bld) [#/Vol] 3.6 10 3/uL 1.4-6.5 [facility] Neutrophils/100 WBC Auto (Bl d)on 02-02-2024 Neutrophils/100 WBC (Bld) 64.3 % 43.0-75.0 [facility] No Panel Informationon 02-01 Eosinophils # (Auto) 0.1 10 3/uL 0.0-0.7 [facility] Immature Granulocyte # (Auto) 0.02 10 3/uL 0.00-0.03 [facility] Platelet mean volume Auto (B ld) [Entitic vol]on 02-02-2024 Platelet mean volume (Bld) [Entitic vol] 10.6 fL 9.5-13.5 [facility] Platelets Auto (Bld) [#/Vol] on 02-02-2024 Platelets (Bld) [#/Vol] 253 10 3/uL 150-450 [facility] RBC Auto (Bld) [#/Vol]on RBC (Bld) [#/Vol] 3.66 10 6/uL 4.20-5.40 [facility] Serum or plasma albumin/glob ulin mass ratioon 02-02-2024 Albumin/Globulin [Mass ratio] 1.1 {ratio} [facility] Serum or plasma anion gap de terminationon 02-02-2024 Anion gap [Moles/Vol] 13.1 mmol/L [facility] Serum or plasma total choles terol/high density lipoprotein (HDL) cholesterol mass anastasia 02-02-2024 Cholesterol.total/Cho lesterol in HDL [Mass ratio] 3.8 {ratio} [facility] Comment on above: 3.3 - 4.4 LOW RISK4. 4 - 7.1 AVERAGE RISK7.1 - 11.0 MODERATE RISK>11.0 HIGH RISK Basic metabolic 2000 panelon 11-05-2023 Anion gap [Moles/Vol] 9 mmol/L Normal 9-18 [facility] Comment on above: Order Comment: Speci men Type: BLOOD SPECIMEN Ordering Facility: [facility] Address: [address] [address] Performed By: #### 5 7021-8 #### [facility] CLIA [id number] [address] [place] [address] Calcium [Mass/Vol] 9.6 mg/dL Normal 8.5-10.2 [facility] Comment on above: Order Comment: Speci men Type: BLOOD SPECIMEN Ordering Facility: [facility] Address: [address] [address] Performed By: #### 5 7021-8 #### [facility] CLIA [id number] [address] [place] [address] Chloride [Moles/Vol] 103 mmol/L Normal 97-105 [facility] Comment on above: Order Comment: Speci men Type: BLOOD SPECIMEN Ordering Facility: [facility] Address: [address] Performed By: #### 5 7021-8 #### [facility] CLIA [id number] [address] [place] [address] CO2 [Moles/Vol] 29 mmol/L Normal 22-30 [facility] Comment on above: Order Comment: Speci men Type: BLOOD SPECIMEN Ordering Facility: [facility] Address: [address] Performed By: #### 5 7021-8 #### [facility] CLIA [id number] [address] [place] [address] Creatinine [Mass/Vol] 1.48 mg/dL High 0.58-0.96 [facility] Comment on above: Order Comment: Preet patino Type: BLOOD SPECIMEN Ordering Facility: [facility] Address: [address] [address] Performed By: #### 5 7021-8 #### [facility] CLIA [id number] [address] [place] [address] Creatinine and Glomerular filtration rate.predicted panel (S/P/Bld) 35 mL/min/1.73m??? Low >=60 [facility] Comment on above: Order Comment: Preet patino Type: BLOOD SPECIMEN Ordering Facility: [facility] Address: [address] [place] [address] Result Comment: Shoshana mated Glomerular Filtration Rate [...] GFR. Performed By: #### 5 7021-8 #### [facility] CLIA [id number] [address] [place] [address] Glucose [Mass/Vol] 138 mg/dL High 74-99 [facility] Comment on above: Order Comment: Preet patino Type: BLOOD SPECIMEN Ordering Facility: [facility] Address: [address] [address] Result Comment: The [place] Diabetes Association (ADA) provides guidance for cutoff [...] Standards of Medical Care in Diabetes 2016, [place] Diabetes Association. Diabetes Care. 2016.39(Suppl 1). Performed By: #### 5 7021-8 #### [facility] CLIA [id number] [address] [place] [address] Potassium [Moles/Vol] 5.0 mmol/L Normal 3.7-5.1 [facility] Comment on above: Order Comment: Speci men Type: BLOOD SPECIMEN Ordering Facility: [facility] Address: [address] [address] Performed By: #### 5 7021-8 #### [facility] CLIA [id number] [address] [place] [address] Sodium [Moles/Vol] 141 mmol/L Normal 136-144 [facility] Comment on above: Order Comment: Speci men Type: BLOOD SPECIMEN Ordering Facility: [facility] Address: [address] [address] Performed By: #### 5 7021-8 #### [facility] CLIA [id number] [address] [place] [address] Urea nitrogen [Mass/Vol] 25 mg/dL High 7-21 [facility] Comment on above: Order Comment: Speci men Type: BLOOD SPECIMEN Ordering Facility: [facility] Address: [address] Performed By: #### 5 7021-8 #### [facility] CLIA [id number] [address] [place] [address] CBC W Auto Differential pane l (Bld)on 11-05-2023 Basophils (Bld) [#/Vol] 0.06 10*3/uL Normal <0.11 [facility] Comment on above: Order Comment: Speci men Type: BLOOD SPECIMEN Ordering Facility: [facility] Address: [address] [place] [address] Performed By: #### K LFRS #### [facility] CLIA [id number] [address] [place] [address] [place] Basophils/100 WBC (Bld) 0.9 % Normal [facility] Comment on above: Order Comment: Speci men Type: BLOOD SPECIMEN Ordering Facility: [facility] Address: [address] [place] [address] Performed By: #### K LFRS #### [facility] CLIA [id number] [address] [place] [address] [place] Differential cell count method Nom (Bld) Auto Normal [facility] Comment on above: Order Comment: Speci men Type: BLOOD SPECIMEN Ordering Facility: [facility] Address: [address] [place] [address] Performed By: #### K LFRS #### [facility] CLIA [id number] [address] [place] [address] [place] Eosinophils (Bld) [#/Vol] 0.10 10*3/uL Normal <0.46 [facility] Comment on above: Order Comment: Speci men Type: BLOOD SPECIMEN Ordering Facility: [facility] Address: [address] [place] [address] Performed By: #### K LFRS #### [facility] CLIA [id number] [address] [place] [address] [place] Eosinophils/100 WBC (Bld) 1.4 % Normal [facility] Comment on above: Order Comment: Speci men Type: BLOOD SPECIMEN Ordering Facility: [facility] Address: [address] [place] [address] Performed By: #### K LFRS #### [facility] CLIA [id number] [address] [place] [address] [place] Erythrocyte distribution width (RBC) [Ratio] 14.1 % Normal 11.5-15.0 [facility] Comment on above: Order Comment: Speci men Type: BLOOD SPECIMEN Ordering Facility: [facility] Address: [address] [place] [address] Performed By: #### K LFRS #### [facility] CLIA [id number] [address] [place] [address] [place] Hematocrit (Bld) [Volume fraction] 31.7 % Low 36.0-46.0 [facility] Comment on above: Order Comment: Speci men Type: BLOOD SPECIMEN Ordering Facility: [facility] Address: [address] [place] [address] Performed By: #### K LFRS #### [facility] CLIA [id number] [address] [place] [address] [place] Hemoglobin (Bld) [Mass/Vol] 10.4 g/dL Low 11.5-15.5 [facility] Comment on above: Order Comment: Speci men Type: BLOOD SPECIMEN Ordering Facility: [facility] Address: [address] [place] [address] Performed By: #### K LFRS #### [facility] CLIA [id number] [address] [place] [address] [place] Immature granulocytes (Bld) [#/Vol] 0.04 10*3/uL Normal <0.10 [facility] Comment on above: Order Comment: Speci men Type: BLOOD SPECIMEN Ordering Facility: [facility] Address: [address] [place] [address] Performed By: #### K LFRS #### [facility] CLIA [id number] [address] [place] [address] [place] Immature granulocytes/100 WBC (Bld) 0.6 % Normal [facility] Comment on above: Order Comment: Speci men Type: BLOOD SPECIMEN Ordering Facility: [facility] Address: [address] [place] [address] Performed By: #### K LFRS #### [facility] CLIA [id number] [address] [place] [address] [place] Lymphocytes (Bld) [#/Vol] 0.89 10*3/uL Low 1.00-4.00 [facility] Comment on above: Order Comment: Speci men Type: BLOOD SPECIMEN Ordering Facility: [facility] Address: [address] [place] [address] Performed By: #### K LFRS #### [facility] CLIA [id number] [address] [place] [address] [place] Lymphocytes/100 WBC (Bld) 12.8 % Normal [facility] Comment on above: Order Comment: Speci men Type: BLOOD SPECIMEN Ordering Facility: [facility] Address: [address] [place] [address] Performed By: #### K LFRS #### [facility] CLIA [id number] [address] [place] [address] [place] MCH (RBC) [Entitic mass] 29.3 pg Normal 26.0-34.0 [facility] Comment on above: Order Comment: Speci men Type: BLOOD SPECIMEN Ordering Facility: [facility] Address: [address] [place] [address] Performed By: #### K LFRS #### [facility] CLIA [id number] [address] [place] [address] [place] MCHC (RBC) [Mass/Vol] 32.8 g/dL Normal 30.5-36.0 [facility] Comment on above: Order Comment: Speci men Type: BLOOD SPECIMEN Ordering Facility: [facility] Address: [address] [place] [address] Performed By: #### K LFRS #### [facility] CLIA [id number] [address] [place] [address] [place] MCV (RBC) [Entitic vol] 89.3 fL Normal 80.0-100.0 [facility] Comment on above: Order Comment: Speci men Type: BLOOD SPECIMEN Ordering Facility: [facility] Address: [address] [place] [address] Performed By: #### K LFRS #### [facility] CLIA [id number] [address] [place] [address] [place] Monocytes (Bld) [#/Vol] 0.69 10*3/uL Normal <0.87 [facility] Comment on above: Order Comment: Speci men Type: BLOOD SPECIMEN Ordering Facility: [facility] Address: [address] [place] [address] Performed By: #### K LFRS #### [facility] CLIA [id number] [address] [place] [address] [place] Monocytes/100 WBC (Bld) 9.9 % Normal [facility] Comment on above: Order Comment: Speci men Type: BLOOD SPECIMEN Ordering Facility: [facility] Address: [address] [place] [address] Performed By: #### K LFRS #### [facility] CLIA [id number] [address] [place] [address] [place] Neutrophils (Bld) [#/Vol] 5.16 10*3/uL Normal 1.45-7.50 [facility] Comment on above: Order Comment: Speci men Type: BLOOD SPECIMEN Ordering Facility: [facility] Address: [address] [place] [address] Performed By: #### K LFRS #### [facility] CLIA [id number] [address] [place] [address] [place] Neutrophils/100 WBC (Bld) 74.4 % Normal [facility] Comment on above: Order Comment: Speci men Type: BLOOD SPECIMEN Ordering Facility: [facility] Address: [address] [place] [address] Performed By: #### K LFRS #### [facility] CLIA [id number] [address] [place] [address] [place] Nucleated RBC (Bld) [#/Vol] 10*3/uL Normal <0.01 [facility] Comment on above: Order Comment: Speci men Type: BLOOD SPECIMEN Ordering Facility: [facility] Address: [address] [place] [address] Performed By: #### K LFRS #### [facility] CLIA [id number] [address] [place] [address] [place] Nucleated RBC/100 WBC (Bld) [Ratio] 0.0 /100 WBC Normal [facility] Comment on above: Order Comment: Speci men Type: BLOOD SPECIMEN Ordering Facility: [facility] Address: [address] [place] [address] Performed By: #### K LFRS #### [facility] CLIA [id number] [address] [place] [address] [place] Platelet mean volume (Bld) [Entitic vol] 9.9 fL Normal 9.0-12.7 [facility] Comment on above: Order Comment: Speci men Type: BLOOD SPECIMEN Ordering Facility: [facility] Address: [address] [place] [address] Performed By: #### K LFRS #### [facility] CLIA [id number] [address] [place] [address] [place] Platelets (Bld) [#/Vol] 262 10*3/uL Normal 150-400 [facility] Comment on above: Order Comment: Speci men Type: BLOOD SPECIMEN Ordering Facility: [facility] Address: [address] [place] [address] Performed By: #### K LFRS #### [facility] CLIA [id number] [address] [place] [address] [place] RBC (Bld) [#/Vol] 3.55 10*6/uL Low 3.90-5.20 [facility] Comment on above: Order Comment: Speci men Type: BLOOD SPECIMEN Ordering Facility: [facility] Address: [address] [place] [address] Performed By: #### K LFRS #### [facility] CLIA [id number] [address] [place] [address] [place] WBC (Bld) [#/Vol] 6.94 10*3/uL Normal 3.70-11.00 [facility] Comment on above: Order Comment: Speci men Type: BLOOD SPECIMEN Ordering [facility] Address: [address] [facility] [place] [address] Performed By: #### K LFRS #### [facility] CLIA [id number] [address] [id number] [place] CNOVSPon 11-05-2023 CNOVSP Visit (SP) Office ([place]) ----- LASHAUN JOAQUIN ([id number]) 1940 F Date Time Provider Department 11/05/23 1:30 PM PAOLO CASILLAS During your visit today, we recorded the following information about you: Temperature Pulse Respiration Blood pressure 97.5 degrees 57/minute 16/minute 111/40 Weight Height 87.6 kg 1.664 m Paolo Casillas APRN.DOCTOR OF DENTAL MEDICINE 11/07/2023 12:22 PM Signed PATIENT NAME: Lashaun [...] 166.4 c (more content not included)... Normal [facility] IMMUNOFIXATION SCREEN, SERUM on 11-05-2023 INTERPRETATION (MPA) [...] monoclonal gammopathy. Clinical correlation is necessary. Normal [facility] Comment on above: Order Comment: Speci men Type: BLOOD SPECIMEN Ordering Facility: [facility] Address: [address] [place] [address] [place] [address] Performed By: #### 5 7021-8 #### [facility] CLIA [id number] [address] [place] [address] MPA RESULT A poorly defined reg ion of restricted mobility is present that may represent an M protein. Abnormal No M protein is identified. [facility] Comment on above: Order Comment: Speci men Type: BLOOD SPECIMEN Ordering Facility: [facility] Address: [address] [place] [address] Performed By: #### 5 7021-8 #### [facility] CLIA [id number] [address] [place] [address] STAFF REVIEW ([facility]) Reviewed by Milka Bahena MD [facility] Comment on above: Order Comment: Speci men Type: BLOOD SPECIMEN Ordering Facility: [facility] Address: [address] [place] [address] Performed By: #### 5 7021-8 #### [facility] CLIA [id number] [address] [place] [address] IMMUNOGLOBULINS GAMon 2023 IgA [Mass/Vol] 72 mg/dL Normal 70-400 [facility] Comment on above: Order Comment: Speci men Type: BLOOD SPECIMEN Ordering Facility: [facility] Address: [address] [address] Performed By: #### 5 7021-8 #### [facility] CLIA [id number] [address] [place] [address] IgG [Mass/Vol] 525 mg/dL Low 700-1600 [facility] Comment on above: Order Comment: Speci men Type: BLOOD SPECIMEN Ordering Facility: [facility] Address: [address] [address] Performed By: #### 5 7021-8 #### [facility] CLIA [id number] [address] [place] [address] IgM [Mass/Vol] 340 mg/dL High 40-230 [facility] Comment on above: Order Comment: Speci men Type: BLOOD SPECIMEN Ordering Facility: [facility] Address: [address] [address] Performed By: #### 5 7021-8 #### [facility] CLIA [id number] [address] [place] [address] KAPPA/BOWLES,FREE,SERon 2023 Immunoglobulin light chains.kappa.free (S) [Mass/Vol] 106.4 mg/L High 3.3-19.4 [facility] Comment on above: Order Comment: Preet patino Type: BLOOD SPECIMEN Ordering Facility: [facility] Address: [address] [place] [address] Result Comment: Rare ly, increased serum free light chains levels may not be detected or accurately quantified due to prozone phenomenon or in high viscosity samples using this immunoturbidimetric assay. Correlation with other laboratory results and clinical findings is recommended. The [place] Free Light Chain was performed using the Binding Site Optilite immunoturbidimetric method. Result obtained with different assay methods or kits cannot be used interchangeably. Performed By: #### K LFRS #### [facility] CLIA [id number] [address] [place] [address] [place] Immunoglobulin light chains.kappa/Immunogl obulin light chains.lambda (S) [Mass ratio] 5.29 High 0.26-1.65 [facility] Comment on above: Order Comment: Preet patino Type: BLOOD SPECIMEN Ordering Facility: [facility] Address: [address] [place] [address] Performed By: #### K LFRS #### [facility] CLIA [id number] [address] [place] [address] [place] Immunoglobulin light chains.lambda.free [Mass/Vol] 20.1 mg/L Normal 5.7-26.3 [facility] Comment on above: Order Comment: Speci men Type: BLOOD SPECIMEN Ordering Facility: [facility] Address: [address] [place] [address] Result Comment: Rare ly, increased serum free [...] interchangeably. Performed By: #### K LFRS #### [facility] CLIA [id number] [address] [place] [address] [place] PROTEIN ELECTROPHORESIS SERU M WITH BRANDON (P)on 11-05-2023 Albumin [Mass/Vol] 3.79 g/dL Normal 3.43-5.41 [facility] Comment on above: Order Comment: Speci men Type: BLOOD SPECIMEN Ordering Facility: [facility] Address: [address] [place] [address] Performed By: #### L [id number] #### [facility] CLIA [id number] [address] [place] [address] [place] Alpha 1 globulin Elph [Mass/Vol] 0.28 g/dL Normal 0.18-0.43 [facility] Comment on above: Order Comment: Speci men Type: BLOOD SPECIMEN Ordering Facility: [facility] Address: [address] [place] [address] Performed By: #### L [id number] #### [facility] CLIA [id number] [address] [place] [address] [place] Alpha 2 globulin Elph [Mass/Vol] 0.72 g/dL Normal 0.42-0.98 [facility] Comment on above: Order Comment: Speci men Type: BLOOD SPECIMEN Ordering Facility: [facility] Address: [address] [place] [address] Performed By: #### L [id number] #### [facility] CLIA [id number] [address] [place] [address] [place] Beta globulin Elph [Mass/Vol] 0.52 g/dL Low 0.61-1.17 [facility] Comment on above: Order Comment: Speci men Type: BLOOD SPECIMEN Ordering Facility: [facility] Address: [address] [place] [address] Performed By: #### L [id number] #### [facility] CLIA [id number] [address] [place] [address] [place] COMMENT (SERUM PROT ELECTRO) A reflex test for Monoclonal Protein analysis (immunofixation) has been ordered. Normal [facility] Comment on above: Order Comment: Speci men Type: BLOOD SPECIMEN Ordering Facility: [facility] Address: [address] [place] [address] Performed By: #### L [id number] #### [facility] CLIA [id number] [facility] [place] [address] [place] Gamma globulin Elph [Mass/Vol] 0.49 g/dL Low 0.53-1.51 [facility] Comment on above: Order Comment: Speci men Type: BLOOD SPECIMEN Ordering Facility: [facility] Address: [address] [place] [address] Performed By: #### L [id number] #### [facility] CLIA [id number] [address] [place] [address] [place] INTERPRETATION COMMENT FOR PROTEIN ELECTROPHORESIS Normal [facility] Comment on above: Order Comment: Sarathi carey Type: BLOOD SPECIMEN Ordering Facility: [facility] Address: [address] [place] [address] Result Comment: The atypical region is relatively poorly defined and may represent an unusual presentation of polyclonal immunoglobulins, but cannot rule out the presence of a low level M protein. If clinically indicated, monoclonal protein analysis and serum free light chain analysis are suggested to evaluate further for monoclonal gammopathy. Performed By: #### L [id number] #### [facility] CLIA [id number] [address] [place] [address] [place] M-PROTEIN LOCATION Normal [facility] Comment on above: Order Comment: Speci men Type: BLOOD SPECIMEN Ordering Facility: [facility] Address: [address] [place] [address] Result Comment: Not Applicable. Performed By: #### L [id number] #### [facility] CLIA [id number] [address] [place] Protein Fractions [Interp] An atypical region of restricted mobility is identified on protein electrophoresis. Abnormal No definitive M protein is identified on protein electrophor esis. [facility] Comment on above: Order Comment: Speci men Type: BLOOD SPECIMEN Ordering Facility: [facility] Address: [address] [place] [address] Performed By: #### L [id number] #### [facility] CLIA [id number] [facility] [place] [address] [place] Protein.monoclonal Elph [Mass/Vol] 0.00 g/dL Normal <=0.00 [facility] Comment on above: Order Comment: Speci men Type: BLOOD SPECIMEN Ordering Facility: [facility] Address: [address] [place] [address] Performed By: #### L [id number] #### [facility] CLIA [id number] [address] [place] [address] [place] SPE STAFF REVIEW Reviewed by Milka Bahena MD [facility] Comment on above: Order Comment: Speci men Type: BLOOD SPECIMEN Ordering Facility: [facility] Address: [address] [place] [address] Performed By: #### L [id number] #### [facility] CLIA [id number] [address] [place] [address] [place] Prot SerPl-mCncon 11-05-2023 Protein [Mass/Vol] 5.8 g/dL Low 6.3-8.0 [facility] Comment on above: Order Comment: Speci men Type: BLOOD SPECIMEN Ordering Facility: [facility] Address: [address] [place] [address] Performed By: #### 5 7021-8 #### [facility] CLIA [id number] [address] [place] [address] Kyung 08-31-2023 DANIELAN Telephone ([place]) ----- LASHAUN JOAQUIN ([id number]) 1940 F Date Time Provider Department 08/31/23 [...] [R77.8] Order(s):CBC + DIFF [SQCBCDIF] Order #: [id number] FUTURE BASIC METABOLIC PNL [SQBMP] Order #: [id number] FUTURE PROT ELECT SERUM WITH BRANDON AND INTERP [SQSEPGRX] Order #: [id number] FUTURE MONOCLONAL PROTEIN, SERUM (BLOOD) [SQSERMPA] Order #: [id number] FUTURE Prescriptions as of 08/31/2023 - carvedilol [...] Encounter Status:Closed by LUIS MCKENZIE on 08/31/23 [facility] UA RANDOM W/MICROSCOPICon Clarity (U) CLEAR CLEAR [facility] Other Color (U) DK YELLOW YELLOW [facility] Other Ketones Ql (U) Negative NEGATIVE mg/dL [facility] Other Leukocyte esterase Test strip Ql (U) Negative NEGATIVE [facility] Other pH (U) 6.5 [pH] 5.0-9.0 [facility] Other UA RANDOM W/MICROSCOPIC 0-2 #/HPF Abnormal NONE SEEN #/HPF [facility] Other UA RANDOM W/MICROSCOPIC 5-10 #/HPF Abnormal 0-2 #/HPF [facility] Other UA RANDOM W/MICROSCOPIC see note [facility] Other UA RANDOM W/MICROSCOPIC 1.010 1.005-1.025 [facility] Other UA RANDOM W/MICROSCOPIC Negative NEGATIVE [facility] AS Other UA RANDOM W/MICROSCOPIC LARGE Abnormal NEGATIVE [employer] Other UA RANDOM W/MICROSCOPIC Positive Abnormal NEGATIVE [employer] Other UA RANDOM W/MICROSCOPIC 1.0 EU/dL 0.2-1.0 EU/dL [employer] Other UA RANDOM W/MICROSCOPIC TRACE #/HPF Abnormal NONE SEEN #/HPF [place] [employer] Other UA RANDOM W/MICROSCOPIC NONE SEEN NONE SEEN [employer] Other UA RANDOM W/MICROSCOPIC RARE #/LPF NONE/RARE #/LPF [place] [employer] Other UA RANDOM W/MICROSCOPIC None Seen #/HPF None Seen #/HPF [place] [employer] Other UA RANDOM W/MICROSCOPIC NONE SEEN #/LPF NONE SEEN #/LPF [employer] [employer] Other Urinalysis - DIPSTICKon - Appearance (U) clear [employer] Other Bilirubin Ql (U) Negative [employer] Other Color (U) light yellow [employer] Other Glucose Ql (U) Negative [employer] Other Hemoglobin Ql (U) +++ [employer] Other Ketones Ql (U) Negative [employer] Other Leukocyte esterase Test strip Ql (U) Negative [employer] Other Nitrite Ql (U) Negative [employer] Other pH (U) 0.2 [pH] [employer] Other Protein Ql (U) trace [employer] Other Specific gravity (U) [Rel density] 1.005 [employer] Other Urobilinogen (U) [Mass/Vol] off chart [facility] [employer] Other Urinalysis - DIPSTICK [facility] [employer] Other CNPNon 06-06-2023 CNPN Telephone (HEMTSA) ----- LASHAUN JOAQUIN ([id number]) 1940 F Date Time Provider Department 06/06/23 [...] Status:Closed by JUAN MANZANARES on 06/06/23 Normal [facility] ESR Westergren method (Bld) [Velocity]on 06-05-2023 ESR (Bld) [Velocity] 119 mm/h High 0 - 20 mm/hr [facility] FERRITIN BLDon 06-05-2023 Ferritin [Mass/Vol] 160.0 ng/mL 14.7 - 205.1 ng/mL [facility] Iron and Iron binding capaci ty panelon 06-05-2023 Iron [Mass/Vol] 45 ug/dL 41 - 186 ug/dL [facility] Iron binding capacity [Mass/Vol] 252 ug/dL 232 - 386 ug/dL [facility] Iron/TIBC [Molar ratio] 17.9 % 15.0 - 57.0 % [facility] Basic metabolic 2000 panelon 06-04-2023 Anion gap [Moles/Vol] 10 mmol/L Normal 9-18 [facility] Comment on above: Order Comment: Speci men Type: BLOOD SPECIMEN Ordering Facility[facility] Address: [address] [place] [address] Performed By: #### K LFRS #### [facility] CLIA [id number] [address] [place] [address] [place] Calcium [Mass/Vol] 9.2 mg/dL Normal 8.5-10.2 [facility] Comment on above: Order Comment: Speci men Type: BLOOD SPECIMEN Ordering Facility: [facility] Address: [address] [place] [address] Performed By: #### K LFRS #### [facility] CLIA [id number] [address] [place] [address] [place] Chloride [Moles/Vol] 106 mmol/L High 97-105 [facility] Comment on above: Order Comment: Speci men Type: BLOOD SPECIMEN Ordering Facility: [facility] Address: [address] [place] [address] Performed By: #### K LFRS #### [facility] CLIA [id number] [address] [place] [address] [place] CO2 [Moles/Vol] 27 mmol/L Normal 22-30 [facility] Comment on above: Order Comment: Speci men Type: BLOOD SPECIMEN Ordering Facility: [facility] Address: [address] [place] [address] Performed By: #### K LFRS #### [facility] CLIA [id number] [address] [place] [id number] [place] Creatinine [Mass/Vol] 1.09 mg/dL High 0.58-0.96 [facility] Comment on above: Order Comment: Preet patino Type: BLOOD SPECIMEN Ordering Facility: [facility] Address: [address] [place] [address] Performed By: #### K LFRS #### [facility] CLIA [id number] [address] [place] [address] [place] ESTIMATED GLOMERULAR FILTRATION RATE 51 mL/min/1.73m??? Low >=60 [facility] Comment on above: Order Comment: Preet patino Type: BLOOD SPECIMEN Ordering Facility: [facility] Address: [address] [place] [address] Result Comment: Shoshana mated Glomerular Filtration Rate [...] GFR. Performed By: #### K LFRS #### [facility] CLIA [id number] [address] [place] [address] [place] Glucose [Mass/Vol] 116 mg/dL High 74-99 [facility] Comment on above: Order Comment: Preet patino Type: BLOOD SPECIMEN Ordering Facility: [facility] Address: [address] [place] [address] Result Comment: The [place] Diabetes Association (ADA) provides guidance for cutoff [...] Standards of Medical Care in Diabetes 2016, [place] Diabetes Association. Diabetes Care. 2016.39(Suppl 1). Performed By: #### K LFRS #### [facility] CLIA [id number] [address] [place] [address] [place] Potassium [Moles/Vol] 4.3 mmol/L Normal 3.7-5.1 [facility] Comment on above: Order Comment: Speci men Type: BLOOD SPECIMEN Ordering Facility: [facility] Address: [address] [place] [address] Performed By: #### K LFRS #### [facility] CLIA [id number] [address] [place] [address] [place] Sodium [Moles/Vol] 143 mmol/L Normal 136-144 [facility] Comment on above: Order Comment: Speci men Type: BLOOD SPECIMEN Ordering Facility: [facility] Address: [address] [place] [address] Performed By: #### K LFRS #### [facility] CLIA [id number] [address] [place] [address] [place] Urea nitrogen [Mass/Vol] 19 mg/dL Normal 7-21 [facility] Comment on above: Order Comment: Speci men Type: BLOOD SPECIMEN Ordering Facility: [facility] Address: [address] [place] [address] Performed By: #### K LFRS #### [facility] CLIA [id number] [address] [place] [address] [place] Anion gap [Moles/Vol] 10 mmol/L 9 - 18 mmol/L [facility] Calcium [Mass/Vol] 9.2 mg/dL 8.5 - 10. 2 mg/dL [facility] Chloride [Moles/Vol] 106 mmol/L High 97 - 10 5 mmol/L [facility] CO2 [Moles/Vol] 27 mmol/L 22 - 30 mmol/L [facility] Creatinine [Mass/Vol] 1.09 mg/dL High 0.58 - 0.96 mg/dL [facility] Estimated Glomerular Filtration Rate 51 mL/min/1.73m Low >=60 mL/min/1.73 m [facility] Glucose [Mass/Vol] 116 mg/dL High 74 - 99 mg/dL [facility] Potassium [Moles/Vol] 4.3 mmol/L 3.7 - 5.1 mmol/L [facility] Sodium [Moles/Vol] 143 mmol/L 136 - 144 mmol/L [facility] Urea nitrogen [Mass/Vol] 19 mg/dL 7 - 21 mg/dL [facility] CBC W Auto Differential pane l (Bld)on 06-04-2023 Basophils (Bld) [#/Vol] 0.04 10*3/uL Normal <0.11 [facility] Comment on above: Order Comment: Speci men Type: BLOOD SPECIMEN Ordering Facility: [facility] Address: [address] [place] [address] Performed By: #### 5 7021-8 #### [facility] CLIA [id number] [address] [place] [address] Basophils/100 WBC (Bld) 0.8 % Normal [facility] Comment on above: Order Comment: Speci men Type: BLOOD SPECIMEN Ordering Facility: [facility] Address: [address] [place] [address] Performed By: #### 5 7021-8 #### [facility] CLIA [id number] [address] [place] [address]903 Differential cell count method Nom (Bld) Auto Normal [facility] Comment on above: Order Comment: Speci men Type: BLOOD SPECIMEN Ordering Facility: [facility] Address: [address] [place] [address] Performed By: #### 5 7021-8 #### [facility] CLIA [id number] [address] [place] [address] 06383 Eosinophils (Bld) [#/Vol] 0.14 10*3/uL Normal <0.46 [facility] Comment on above: Order Comment: Speci men Type: BLOOD SPECIMEN Ordering Facility: [facility] Address: [address] [place] [address] Performed By: #### 5 7021-8 #### [facility] CLIA [id number] [address] [place] [address] 03541 Eosinophils/100 WBC (Bld) 2.9 % Normal [facility] Comment on above: Order Comment: Speci men Type: BLOOD SPECIMEN Ordering Facility: [facility] Address: [address] [place] [address] Performed By: #### 5 7021-8 #### [facility] CLIA [id number] [address] [place] [address] 12326 Erythrocyte distribution width (RBC) [Ratio] 13.6 % Normal 11.5-15.0 [facility] Comment on above: Order Comment: Speci men Type: BLOOD SPECIMEN Ordering Facility: [facility] Address: [address] [place] [address] Performed By: #### 5 7021-8 #### [facility] CLIA [id number] [address] [place] [address] 26791 Hematocrit (Bld) [Volume fraction] 28.8 % Low 36.0-46.0 [facility] Comment on above: Order Comment: Speci men Type: BLOOD SPECIMEN Ordering Facility: [facility] Address: [address] [place] [address] Performed By: #### 5 7021-8 #### [facility] CLIA [id number] [address] [place] [address] 82505 Hemoglobin (Bld) [Mass/Vol] 9.2 g/dL Low 11.5-15.5 [facility] Comment on above: Order Comment: Speci men Type: BLOOD SPECIMEN Ordering Facility: [facility] Address: [address] [place] [address] Performed By: #### 5 7021-8 #### [facility] CLIA [id number] [address] [place] [address] 10350 Immature granulocytes (Bld) [#/Vol] 10*3/uL Normal <0.10 [facility] Comment on above: Order Comment: Speci men Type: BLOOD SPECIMEN Ordering Facility: [facility] Address: [facility] [place] [address] Performed By: #### 5 7021-8 #### [facility] CLIA [id number] [address] [place] [address] 48618 Immature granulocytes/100 WBC (Bld) 0.4 % Normal [facility] Comment on above: Order Comment: Speci men Type: BLOOD SPECIMEN Ordering Facility: [facility] Address: [address] [place] [address] Performed By: #### 5 7021-8 #### [facility] CLIA [id number] [address] [place] [address] 15313 Lymphocytes (Bld) [#/Vol] 0.83 10*3/uL Low 1.00-4.00 [facility] Comment on above: Order Comment: Speci men Type: BLOOD SPECIMEN Ordering Facility: [facility] Address: [address] [place] [address] Performed By: #### 5 7021-8 #### [facility] CLIA [id number] [address] [place] [address] 58690 Lymphocytes/100 WBC (Bld) 17.4 % Normal [facility] Comment on above: Order Comment: Speci men Type: BLOOD SPECIMEN Ordering Facility: [facility] Address: [address] [place] [address] Performed By: #### 5 7021-8 #### [facility] CLIA [id number] [address] [place] [address] 35682 MCH (RBC) [Entitic mass] 29.6 pg Normal 26.0-34.0 [facility] Comment on above: Order Comment: Speci men Type: BLOOD SPECIMEN Ordering Facility: [facility] Address: [address] [place] [address] Performed By: #### 5 7021-8 #### [facility] CLIA [id number] [address] [place] [address] 24378 MCHC (RBC) [Mass/Vol] 31.9 g/dL Normal 30.5-36.0 [facility] Comment on above: Order Comment: Speci men Type: BLOOD SPECIMEN Ordering Facility: [facility] Address: [address] [place] [address] Performed By: #### 5 7021-8 #### [facility] CLIA [id number] [address] [place] [address] 40380 MCV (RBC) [Entitic vol] 92.6 fL Normal 80.0-100.0 [facility] Comment on above: Order Comment: Speci men Type: BLOOD SPECIMEN Ordering Facility: [facility] Address: [address] [place] [address] Performed By: #### 5 7021-8 #### [facility] CLIA [id number] [address] [place] [address] 61913 Monocytes (Bld) [#/Vol] 0.40 10*3/uL Normal <0.87 [facility] Comment on above: Order Comment: Speci men Type: BLOOD SPECIMEN Ordering Facility: [facility] Address: [address] [place] [address] Performed By: #### 5 7021-8 #### [facility] CLIA [id number] [address] [place] [address] 49442 Monocytes/100 WBC (Bld) 8.4 % Normal [facility] Comment on above: Order Comment: Speci men Type: BLOOD SPECIMEN Ordering Facility: [facility] Address: [address] [place] [address] Performed By: #### 5 7021-8 #### [facility] CLIA [id number] [address] [place] [address] 53263 Neutrophils (Bld) [#/Vol] 3.35 10*3/uL Normal 1.45-7.50 [facility] Comment on above: Order Comment: Speci men Type: BLOOD SPECIMEN Ordering Facility: [facility] Address: [address] [place] [address] Performed By: #### 5 7021-8 #### [facility] CLIA [id number] [address] [place] [address] 11914 Neutrophils/100 WBC (Bld) 70.1 % Normal [facility] Comment on above: Order Comment: Speci men Type: BLOOD SPECIMEN Ordering Facility: [facility] Address: [address] [place] [address] Performed By: #### 5 7021-8 #### [facility] CLIA [id number] [address] [place] [address] 47812 Nucleated RBC (Bld) [#/Vol] 10*3/uL Normal <0.01 [facility] Comment on above: Order Comment: Speci men Type: BLOOD SPECIMEN Ordering Facility: [facility] Address: [address] [place] [address] Performed By: #### 5 7021-8 #### [facility] CLIA [id number] [address] [place] [address] 32874 Nucleated RBC/100 WBC (Bld) [Ratio] 0.0 /100 WBC Normal [facility] Comment on above: Order Comment: Speci men Type: BLOOD SPECIMEN Ordering Facility: [facility] Address: [address] [place] [address] Performed By: #### 5 7021-8 #### [facility] CLIA [id number] [address] [place] [address] 77428 Platelet mean volume (Bld) [Entitic vol] 10.2 fL Normal 9.0-12.7 [facility] Comment on above: Order Comment: Speci men Type: BLOOD SPECIMEN Ordering Facility: [facility] Address: [address] [place] [address] Performed By: #### 5 7021-8 #### [facility] CLIA [id number] [address] [place] [address] 57603 Platelets (Bld) [#/Vol] 274 10*3/uL Normal 150-400 [facility] Comment on above: Order Comment: Speci men Type: BLOOD SPECIMEN Ordering Facility: [facility] Address: [address] [place] [address] Performed By: #### 5 7021-8 #### [facility] CLIA [id number] [address] [place] [address] 87681 RBC (Bld) [#/Vol] 3.11 10*6/uL Low 3.90-5.20 [facility] Comment on above: Order Comment: Speci men Type: BLOOD SPECIMEN Ordering Facility: [facility] Address: [address] [place] [address] Performed By: #### 5 7021-8 #### [facility] CLIA [id number] [address] [place] [address] 06993 WBC (Bld) [#/Vol] 4.78 10*3/uL Normal 3.70-11.00 [facility] Comment on above: Order Comment: Speci men Type: BLOOD SPECIMEN Ordering Facility: [facility] Address: [address] [place] [address] Performed By: #### 5 7021-8 #### [facility] CLIA [id number] [address] [place] [address] 89486 Basophils (Bld) [#/Vol] 0.04 10*3/uL <0.11 k/uL [facility] Basophils/100 WBC (Bld) 0.8 % [facility] Differential cell count method Nom (Bld) Auto [facility] Eosinophils (Bld) [#/Vol] 0.14 10*3/uL <0.46 k/uL [facility] Eosinophils/100 WBC (Bld) 2.9 % [facility] Erythrocyte distribution width (RBC) [Ratio] 13.6 % 11.5 - 15.0 % [facility] Hematocrit (Bld) [Volume fraction] 28.8 % Low 36.0 - 46.0 % [facility] Hemoglobin (Bld) [Mass/Vol] 9.2 g/dL Low 11.5 - 15.5 g/dL [facility] Immature granulocytes (Bld) [#/Vol] <0.10 k/uL [facility] Immature granulocytes/100 WBC (Bld) 0.4 % [facility] Lymphocytes (Bld) [#/Vol] 0.83 10*3/uL Low 1.00 - 4.00 k/uL [facility] Lymphocytes/100 WBC (Bld) 17.4 % [facility] MCH (RBC) [Entitic mass] 29.6 pg 26.0 - 34.0 pg [facility] MCHC (RBC) [Mass/Vol] 31.9 g/dL 30.5 - 36.0 g/dL [facility] MCV (RBC) [Entitic vol] 92.6 fL 80.0 - 100.0 fL [facility] Monocytes (Bld) [#/Vol] 0.40 10*3/uL <0.87 k/uL [facility] Monocytes/100 WBC (Bld) 8.4 % [facility] Neutrophils (Bld) [#/Vol] 3.35 10*3/uL 1.45 - 7.50 k/uL [facility] Neutrophils/100 WBC (Bld) 70.1 % [facility] Nucleated RBC (Bld) [#/Vol] <0.01 k/uL [facility] Nucleated RBC/100 WBC (Bld) [Ratio] 0.0 /100 WBC [facility] Platelet mean volume (Bld) [Entitic vol] 10.2 fL 9.0 - 12.7 fL [facility] Platelets (Bld) [#/Vol] 274 10*3/uL 150 - 400 k/uL [facility] RBC (Bld) [#/Vol] 3.11 10*6/uL Low 3.90 - 5.2 0 m/uL [facility] WBC (Bld) [#/Vol] 4.78 10*3/uL 3.70 - 11.00 k/uL [facility] CNOVSPon 06-04-2023 CNOVSP Visit (SP) Office (HEMAS[place]) ----- LASHAUN JOAQUIN ([id number]) 1940 F Date Time Provider Department 06/04/23 [...] shortness of breath and was hospitalized at [facility] and treated for suspected pneumonia. Apparently it was later felt she had heart disease, and cardiac catheterization revealed severe coronary artery disease. She subsequently underwent stent placement [place] [facility]. Apparently her shortness of breath persisted, and [...] EXAM: B (more content not included)... Normal [facility] ESR Westergren method (Bld) [Velocity]on 06-04-2023 ESR (Bld) [Velocity] 119 mm/h High 0-20 [facility] Comment on above: Order Comment: Speci men Type: BLOOD SPECIMEN Ordering Facility: [facility] Address: [address] [place] [address] Performed By: #### 2 4323-8 #### [facility] CLIA [id number] [address] [place] [address] 49664 Ferritin SerPl-mCncon 2022 Ferritin [Mass/Vol] 160.0 ng/mL Normal 14.7-205.1 [facility] Comment on above: Order Comment: Speci men Type: BLOOD SPECIMEN Ordering Facility: [facility] Address: [address] [place] [address] Performed By: #### 5 7021-8 #### [facility] CLIA [id number] [address] [place] [address] 87743 Iron and Iron binding capaci ty panelon 06-04-2023 Iron [Mass/Vol] 45 ug/dL Normal 41-186 [facility] Comment on above: Order Comment: Speci men Type: BLOOD SPECIMEN Ordering Facility: [facility] Address: [address] [place] [address] Performed By: #### 2 4323-8 #### [facility] CLIA [id number] [address] [place] [address] 59015 Iron binding capacity [Mass/Vol] 252 ug/dL Normal 232-386 [facility] Comment on above: Order Comment: Speci men Type: BLOOD SPECIMEN Ordering Facility: [facility] Address: [address] [place] [address] Performed By: #### 2 4323-8 #### [facility] CLIA [id number] [address] [place] [address] 58499 Iron/TIBC [Molar ratio] 17.9 % Normal 15.0-57.0 [facility] Comment on above: Order Comment: Speci men Type: BLOOD SPECIMEN Ordering Facility: [facility] Address: [address] [place] [address] Performed By: #### 2 4323-8 #### [facility] CLIA [id number] [address] [place] [address] 26919 RETIC COUNTon 06-04-2023 Reticulocytes (Bld) [#/Vol] 0.47645 10*3/uL 0.018 - 0.100 M/uL [facility] Retics #on 06-04-2023 Reticulocytes (Bld) [#/Vol] 0.83931 10*3/uL Normal 0.018-0.100 [facility] Comment on above: Order Comment: Speci men Type: BLOOD SPECIMEN Ordering Facility: [facility] Address: [address] [place] [address] Performed By: #### 5 7021-8 #### [facility] CLIA [id number] [address] [place] [address] 36857 Reticulocytes (Bld) [#/Vol]o n 06-04-2023 Reticulocytes/100 RBC (Bld) 2.0 % Normal 0.4-2.0 [facility] Comment on above: Order Comment: Speci men Type: BLOOD SPECIMEN Ordering Facility: [facility] Address: [address] [place] [address] Performed By: #### 5 7021-8 #### [facility] CLIA [id number] [address] [place] [address] 32437 Reticulocytes/100 RBC (Bld) 2.0 % 0.4 - 2.0 % [facility] Basic metabolic 2000 panelon 05-28-2023 Anion gap [Moles/Vol] 8 mmol/L Low 9-18 [facility] Comment on above: Order Comment: Speci men Type: BLOOD SPECIMEN Ordering Facility: [facility] Address: [address] [place] [address] Performed By: #### 2 4323-8 #### [facility] CLIA [id number] [address] [place] [address] 52445 Calcium [Mass/Vol] 9.2 mg/dL Normal 8.5-10.2 [facility] Comment on above: Order Comment: Speci men Type: BLOOD SPECIMEN Ordering Facility: [facility] Address: [address] [place] [address] Performed By: #### 2 4323-8 #### [facility] CLIA [id number] [address] [place] [address] 73970 Chloride [Moles/Vol] 104 mmol/L Normal 97-105 [facility] Comment on above: Order Comment: Speci men Type: BLOOD SPECIMEN Ordering Facility: [facility] Address: [address] [place] [address] Performed By: #### 2 4323-8 #### [facility] CLIA [id number] [address] [place] [address] 14142 CO2 [Moles/Vol] 28 mmol/L Normal 22-30 [facility] Comment on above: Order Comment: Speci men Type: BLOOD SPECIMEN Ordering Facility: [facility] Address: [address] [place] [address] Performed By: #### 2 4323-8 #### [facility] CLIA [id number] [address] [place] [address] 34605 Creatinine [Mass/Vol] 1.18 mg/dL High 0.58-0.96 [facility] Comment on above: Order Comment: Speci men Type: BLOOD SPECIMEN Ordering Facility: [facility] Address: [address] [place] [address] Performed By: #### 2 4323-8 #### [facility] CLIA [id number] [address] [place] [address] 72929 ESTIMATED GLOMERULAR FILTRATION RATE 47 mL/min/1.73m??? Low >=60 [facility] Comment on above: Order Comment: Speci men Type: BLOOD SPECIMEN Ordering Facility: [facility] Address: [address] [place] [address] Result Comment: Shoshana mated Glomerular Filtration Rate (eGFR) is calculated using the 2021 CKD-EPI creatinine equation. This equation utilizes serum creatinine, sex, and age as parameters. The creatinine assay has traceable calibration to isotope dilution-mass spectrometry. Refer to KDIGO guidelines for clinical interpretation. In patients with unstable renal function, e.g. those with acute kidney injury, the eGFR may not accurately reflect actual GFR. Performed By: #### 2 4323-8 #### [facility] CLIA [id number] [address] [place] [address] Glucose [Mass/Vol] 127 mg/dL High 74-99 [facility] Comment on above: Order Comment: Speci men Type: BLOOD SPECIMEN Ordering Facility: [facility] Address: [address] [place], [place] [address] Result Comment: The [place] Diabetes Association (ADA) provides guidance for cutoff [...] Standards of Medical Care in Diabetes 2016, [place] [employer] Association. Diabetes Care. 2016.39(Suppl 1). Performed By: #### 2 4323-8 #### [facility] CLIA [id number] [address] [place] [address] 22750 Potassium [Moles/Vol] 4.4 mmol/L Normal 3.7-5.1 [facility] Comment on above: Order Comment: Speci men Type: BLOOD SPECIMEN Ordering Facility: [facility] Address: [address] [place] [address] Performed By: #### 2 4323-8 #### [facility] CLIA [id number] [address] [place] [address] Sodium [Moles/Vol] 140 mmol/L Normal 136-144 [facility] Comment on above: Order Comment: Speci men Type: BLOOD SPECIMEN Ordering Facility: [facility] Address: [address] [address] Performed By: #### 2 4323-8 #### [facility] CLIA [id number] [address] [place] [address] 46294 Urea nitrogen [Mass/Vol] 23 mg/dL High 7-21 [facility] Comment on above: Order Comment: Speci men Type: BLOOD SPECIMEN Ordering Facility: [facility] Address: [address] [place] [address] Performed By: #### 2 4323-8 #### [facility] CLIA [id number] [address] [place], [place] [address] CBC W Auto Differential pane l (Bld)on 05-28-2023 Basophils (Bld) [#/Vol] 0.03 10*3/uL Normal <0.11 [facility] Comment on above: Order Comment: Speci men Type: BLOOD SPECIMEN Ordering Facility: [facility] Address: [address] [address] Performed By: #### 5 7021-8 #### [facility] CLIA [id number] [address] [place], [place] [address] Basophils/100 WBC (Bld) 0.6 % Normal [facility] Comment on above: Order Comment: Speci men Type: BLOOD SPECIMEN Ordering Facility: [facility] Address: [address] [place] [address] Performed By: #### 5 7021-8 #### [facility] CLIA [id number] [address] [place] [address] 04247 Differential cell count method Nom (Bld) Auto Normal [facility] Comment on above: Order Comment: Speci men Type: BLOOD SPECIMEN Ordering Facility: [facility] Address: [address] [place] [address] Performed By: #### 5 7021-8 #### [facility] CLIA [id number] [address] [place] [address] 68248 Eosinophils (Bld) [#/Vol] 0.13 10*3/uL Normal <0.46 [facility] Comment on above: Order Comment: Speci men Type: BLOOD SPECIMEN Ordering Facility: [facility] Address: [address] [address] Performed By: #### 5 7021-8 #### [facility] CLIA [id number] [address] [place] [address] 77046 Eosinophils/100 WBC (Bld) 2.5 % Normal [facility] Comment on above: Order Comment: Speci men Type: BLOOD SPECIMEN Ordering Facility: [facility] Address: [address] [address] Performed By: #### 5 7021-8 #### [facility] CLIA [id number] [address] [place] [address] 62275 Erythrocyte distribution width (RBC) [Ratio] 13.7 % Normal 11.5-15.0 [facility] Comment on above: Order Comment: Speci men Type: BLOOD SPECIMEN Ordering Facility: [facility] Address: [address] [address] Performed By: #### 5 7021-8 #### [facility] CLIA [id number] [address] [place] [address] 37151 Hematocrit (Bld) [Volume fraction] 27.9 % Low 36.0-46.0 [facility] Comment on above: Order Comment: Speci men Type: BLOOD SPECIMEN Ordering Facility: [facility] Address: [address] [address] Performed By: #### 5 7021-8 #### [facility] CLIA [id number] [address] [place] [address] 33555 Hemoglobin (Bld) [Mass/Vol] 8.8 g/dL Low 11.5-15.5 [facility] Comment on above: Order Comment: Speci men Type: BLOOD SPECIMEN Ordering Facility: [facility] Address: [address] [address] Performed By: #### 5 7021-8 #### [facility] CLIA [id number] [address] [place] [address]86 Immature granulocytes (Bld) [#/Vol] 10*3/uL Normal <0.10 [facility] Comment on above: Order Comment: Speci men Type: BLOOD SPECIMEN Ordering Facility: [facility] Address: [address] [address] Performed By: #### 5 7021-8 #### [facility] CLIA [id number] [address] [place] [address] 13055 Immature granulocytes/100 WBC (Bld) 0.4 % Normal [facility] Comment on above: Order Comment: Speci men Type: BLOOD SPECIMEN Ordering Facility: [facility] Address: [address] [place] [address] Performed By: #### 5 7021-8 #### [facility] CLIA [id number] [address] [place] [address] 51668 Lymphocytes (Bld) [#/Vol] 0.88 10*3/uL Low 1.00-4.00 [facility] Comment on above: Order Comment: Speci men Type: BLOOD SPECIMEN Ordering Facility: [facility] Address: [address] [place] [address] Performed By: #### 5 7021-8 #### [facility] CLIA [id number] [address] [place] [address] 04504 Lymphocytes/100 WBC (Bld) 16.8 % Normal [facility] Comment on above: Order Comment: Speci men Type: BLOOD SPECIMEN Ordering Facility: [facility] Address: [address] [place] [address] Performed By: #### 5 7021-8 #### [facility] CLIA [id number] [address] [place] [address] 36736 MCH (RBC) [Entitic mass] 29.1 pg Normal 26.0-34.0 [facility] Comment on above: Order Comment: Speci men Type: BLOOD SPECIMEN Ordering Facility: [facility] Address: [address] [address] Performed By: #### 5 7021-8 #### [facility] CLIA [id number] [address] [place] [address] 18263 MCHC (RBC) [Mass/Vol] 31.5 g/dL Normal 30.5-36.0 [facility] Comment on above: Order Comment: Speci men Type: BLOOD SPECIMEN Ordering Facility: [facility] Address: [address] [address] Performed By: #### 5 7021-8 #### [facility] CLIA [id number] [address] [place] [address] 17303 MCV (RBC) [Entitic vol] 92.4 fL Normal 80.0-100.0 [facility] Comment on above: Order Comment: Speci men Type: BLOOD SPECIMEN Ordering Facility: [facility] Address: [address] [address] Performed By: #### 5 7021-8 #### [facility] CLIA [id number] [address] [place] [address] 92426 Monocytes (Bld) [#/Vol] 0.43 10*3/uL Normal <0.87 [facility] Comment on above: Order Comment: Speci men Type: BLOOD SPECIMEN Ordering Facility: [facility] Address: [address] [address] Performed By: #### 5 7021-8 #### [facility] CLIA [id number] [address] [place] [address] 15314 Monocytes/100 WBC (Bld) 8.2 % Normal [facility] Comment on above: Order Comment: Speci men Type: BLOOD SPECIMEN Ordering Facility: [facility] Address: [address] [address] Performed By: #### 5 7021-8 #### [facility] CLIA [id number] [address] [place] [address] 95946 Neutrophils (Bld) [#/Vol] 3.76 10*3/uL Normal 1.45-7.50 [facility] Comment on above: Order Comment: Speci men Type: BLOOD SPECIMEN Ordering Facility: [facility] Address: [address] [address] Performed By: #### 5 7021-8 #### [facility] CLIA [id number] [address] [place] [address] 58215 Neutrophils/100 WBC (Bld) 71.5 % Normal [facility] Comment on above: Order Comment: Speci men Type: BLOOD SPECIMEN Ordering Facility: [facility] Address: [address] [address] Performed By: #### 5 7021-8 #### [facility] CLIA [id number] [address] [place] [address] 14418 Nucleated RBC (Bld) [#/Vol] 10*3/uL Normal <0.01 [facility] Comment on above: Order Comment: Speci men Type: BLOOD SPECIMEN Ordering Facility: [facility] Address: [address] [address] Performed By: #### 5 7021-8 #### [facility] CLIA [id number] [address] [place] [address] 51711 Nucleated RBC/100 WBC (Bld) [Ratio] 0.0 /100 WBC Normal [facility] Comment on above: Order Comment: Speci men Type: BLOOD SPECIMEN Ordering Facility: [facility] Address: [address] [address] Performed By: #### 5 7021-8 #### [facility] CLIA [id number] [address] [place] [address] 88678 Platelet mean volume (Bld) [Entitic vol] 10.2 fL Normal 9.0-12.7 [facility] Comment on above: Order Comment: Speci men Type: BLOOD SPECIMEN Ordering Facility: [facility] Address: [address] [address] Performed By: #### 5 7021-8 #### [facility] CLIA [id number] [address] [place] [address] 36169 Platelets (Bld) [#/Vol] 238 10*3/uL Normal 150-400 [facility] Comment on above: Order Comment: Speci men Type: BLOOD SPECIMEN Ordering Facility: [facility] Address: [address] [place] [address] Performed By: #### 5 7021-8 #### [facility] CLIA [id number] [address] [place] [address] 39750 RBC (Bld) [#/Vol] 3.02 10*6/uL Low 3.90-5.20 [facility] Comment on above: Order Comment: Speci men Type: BLOOD SPECIMEN Ordering Facility: [facility] Address: [address] [place] [address] Performed By: #### 5 7021-8 #### [facility] CLIA [id number] [address] [place], [place] [address] WBC (Bld) [#/Vol] 5.25 10*3/uL Normal 3.70-11.00 [facility] Comment on above: Order Comment: Speci men Type: BLOOD SPECIMEN Ordering Facility: [facility] Address: [address] [place] [address] Performed By: #### 5 7021-8 #### [facility] CLIA [id number] [address] [place] [address] 74107 IMMUNOFIXATION SCREEN, SERUM on 05-28-2023 MPA RESULT No M protein is identified. Normal No M protein is identified. [facility] Comment on above: Order Comment: Speci men Type: BLOOD SPECIMEN Ordering Facility: [facility] Address: [address] [place] [address] Performed By: #### 5 7021-8 #### [facility] CLIA [id number] [address] [place] [address] 44644 STAFF REVIEW (MPA) Reviewed by Milka Bahena MD [facility] Comment on above: Order Comment: Speci men Type: BLOOD SPECIMEN Ordering Facility: [facility] Address: [address] [place] [address] Performed By: #### 5 7021-8 #### [facility] CLIA [id number] [address] [place] [address] IMMUNOGLOBULINS GAMon 2022 IgA [Mass/Vol] 77 mg/dL Normal 70-400 [facility] Comment on above: Order Comment: Speci men Type: BLOOD SPECIMEN Ordering Facility: [facility] Address: [address] [place] [address] Performed By: #### K LFRS #### [facility] CLIA [id number] [address] [place] [address] [place] IgG [Mass/Vol] 682 mg/dL Low 700-1600 [facility] Comment on above: Order Comment: Speci men Type: BLOOD SPECIMEN Ordering Facility: [facility] Address: [address] [place] [address] Performed By: #### K LFRS #### [facility] CLIA [id number] [address] [place] [address] [place] IgM [Mass/Vol] 285 mg/dL High 40-230 [facility] Comment on above: Order Comment: Speci men Type: BLOOD SPECIMEN Ordering Facility: [facility] Address: [address] [place] [address] Performed By: #### K LFRS #### [facility] CLIA [id number] [facility] [place] [address] [place] KAPPA/BOWLES,FREE,SERon 2022 Immunoglobulin light chains.kappa.free (S) [Mass/Vol] 111.0 mg/L High 3.3-19.4 [facility] Comment on above: Order Comment: Speci men Type: BLOOD SPECIMEN Ordering Facility: [facility] Address: [address] [place] [address] Result Comment: Rare ly, increased serum free light chains levels may not be detected or accurately quantified due to prozone phenomenon or in high viscosity samples using this immunoturbidimetric assay. Correlation with other laboratory results and clinical findings is recommended. The [employer] Free Light Chain was performed using the Binding Site Optilite immunoturbidimetric method. Result obtained with different assay methods or kits cannot be used interchangeably. Performed By: #### 2 4323-8 #### [facility] CLIA [id number] [address] [place] [address] 44906 Immunoglobulin light chains.kappa/Immunogl obulin light chains.lambda (S) [Mass ratio] 4.48 High 0.26-1.65 [facility] Comment on above: Order Comment: Speci men Type: BLOOD SPECIMEN Ordering Facility: [facility] Address: [address] [place] [address] Performed By: #### 2 4323-8 #### [facility] CLIA [id number] [address] [place] [address] 02989 Immunoglobulin light chains.lambda.free [Mass/Vol] 24.8 mg/L Normal 5.7-26.3 [facility] Comment on above: Order Comment: Speci men Type: BLOOD SPECIMEN Ordering Facility: [facility] Address: [address] [place] [address] Result Comment: Rare ly, increased serum free [...] interchangeably. Performed By: #### 2 4323-8 #### [facility] CLIA [id number] [address] [place] [address] 01295 PROTEIN ELECTROPHORESIS SERU M WITH BRANDON (P)on 05-28-2023 Albumin [Mass/Vol] 3.50 g/dL Normal 3.43-5.41 [facility] Comment on above: Order Comment: Speci men Type: BLOOD SPECIMEN Ordering Facility: [facility] Address: [address] [place] [address] Performed By: #### K LFRS #### [facility] CLIA [id number] [address] [place] [address] [place] Alpha 1 globulin Elph [Mass/Vol] 0.35 g/dL Normal 0.18-0.43 [facility] Comment on above: Order Comment: Speci men Type: BLOOD SPECIMEN Ordering Facility: [facility] Address: [address] [place] [address] Performed By: #### K LFRS #### [facility] CLIA [id number] [address] [place] [address] [place] Alpha 2 globulin Elph [Mass/Vol] 0.73 g/dL Normal 0.42-0.98 [facility] Comment on above: Order Comment: Speci men Type: BLOOD SPECIMEN Ordering Facility: [facility] Address: [address] [place] [address] Performed By: #### K LFRS #### [facility] CLIA [id number] [address] [place] [address] [place] Beta globulin Elph [Mass/Vol] 0.60 g/dL Low 0.61-1.17 [facility] Comment on above: Order Comment: Speci men Type: BLOOD SPECIMEN Ordering Facility: [facility] Address: [address] [place] [address] Performed By: #### K LFRS #### [facility] CLIA [id number] [facility] [place] [address] [place] COMMENT (SERUM PROT ELECTRO) Monoclonal Protein analysis (immunofixation) is not indicated. Normal [facility] Comment on above: Order Comment: Speci men Type: BLOOD SPECIMEN Ordering Facility: [facility] Address: [address] [place] [address] Performed By: #### K LFRS #### [facility] CLIA [id number] [address] [place] [address] [place] Gamma globulin Elph [Mass/Vol] 0.72 g/dL Normal 0.53-1.51 [facility] Comment on above: Order Comment: Speci men Type: BLOOD SPECIMEN Ordering Facility: [facility] Address: [address] [place] [address] Performed By: #### K LFRS #### [facility] CLIA [id number] [facility] [place] [address] [place] M-PROTEIN LOCATION Normal [facility] Comment on above: Order Comment: Speci men Type: BLOOD SPECIMEN Ordering Facility: [facility] Address: [address] [place] [address] Result Comment: Not Applicable. Performed By: #### K LFRS #### [facility] CLIA [id number] [address] [place] [address] [place] Protein Fractions [Interp] No definitive M protein is identified on protein electrophoresis. Normal No definitive M protein is identified on protein electrophor esis. [facility] Comment on above: Order Comment: Speci men Type: BLOOD SPECIMEN Ordering Facility[facility] Address: [address] [place] [address] Performed By: #### K LFRS #### [facility] CLIA [id number] [facility] [place] [address] [place] Protein.monoclonal Elph [Mass/Vol] 0.00 g/dL Normal <=0.00 [facility] Comment on above: Order Comment: Speci men Type: BLOOD SPECIMEN Ordering Facility: [facility] Address: [address] [place] [address] Performed By: #### K LFRS #### [facility] CLIA [id number] [address] [place] [address] [place] SPE STAFF REVIEW Reviewed by Milka Bahena MD Normal [facility] Comment on above: Order Comment: Speci men Type: BLOOD SPECIMEN Ordering Facility: [facility] Address: [address] [place] [address] Performed By: #### K LFRS #### [facility] CLIA [id number] [facility] [place] [address] [place] Prot SerPl-mCncon 05-28-2023 Protein [Mass/Vol] 5.9 g/dL Low 6.3-8.0 [facility] Comment on above: Order Comment: Speci men Type: BLOOD SPECIMEN Ordering Facility: [facility] Address: [address] [place] [address] Performed By: #### K LFRS #### [facility] CLIA [id number] [facility] [place] [address] [place] Basophils Auto (Bld) [#/Vol] Ordered By: Lj Ryan on 05-18-2023 Basophils (Bld) [#/Vol] 0.0 10*3/uL 0.0-0.2 [facility] Basophils/100 WBC Auto (Bld) Ordered By: Lj Ryan on 05-18-2023 Basophils/100 WBC (Bld) 0.7 % . [facility] Calcium [Mass/volume] in Ser um or PlasmaOrdered By: Lj Ryan on 05-18-2023 Calcium [Mass/Vol] 8.9 mg/dL 8.6-10.3 [facility] Carbon dioxide, total [Moles /volume] in Serum or PlasmaOrdered By: Lj Ryan on 05-18-2023 CO2 [Moles/Vol] 30.5 mmol/L 21.0-31.0 [facility] Chloride [Moles/volume] in S courtney or PlasmaOrdered By: Lj Ryan on 05-18-2023 Chloride [Moles/Vol] 103 mmol/L 98-107 [facility] Creatinine [Mass/volume] in Serum or PlasmaOrdered By: Lj Ryan on 05-18-2023 Creatinine [Mass/Vol] 1.37 mg/dL 0.60-1.20 [facility] Eosinophils Auto (Bld) [#/Vo l]Ordered By: Lj Ryan on 05-18-2023 Eosinophils (Bld) [#/Vol] 0.1 10*3/uL 0.0-0.45 [facility] Eosinophils/100 WBC Auto (Bl d)Ordered By: Lj Ryan on 05-18-2023 Eosinophils/100 WBC (Bld) 1.9 % . [facility] Erythrocyte distribution wid th Auto (RBC) [Ratio]Ordered By: Lj Ryan on 05-18-2023 Erythrocyte distribution width (RBC) [Ratio] 14.1 % 11.9-15.3 [facility] Glucose [Mass/volume] in Ser um or PlasmaOrdered By: Lj Ryan on 05-18-2023 Glucose [Mass/Vol] 94 mg/dL 70-100 [facility] Comment on above: ADA recommended refe rence rangeRandom Glucose Reference Range is dependent on time and content of last meal. Glucose of more than 200 mg/dL in a nonstressed, ambulatory subject supports the diagnosis of Diabetes Mellitus. Hematocrit Auto (Bld) [Volum e fraction]Ordered By: Lj Ryan on 05-18-2023 Hematocrit (Bld) [Volume fraction] 28.2 % 34.0-46.4 [facility] Hemoglobin [Mass/volume] in BloodOrdered By: Lj Ryan on 05-18-2023 Hemoglobin (Bld) [Mass/Vol] 9.7 g/dL 11.8-15.4 [facility] Leukocytes [#/volume] correc miguel for nucleated erythrocytes in Blood by Automated counOrdered By: Lj Ryan on 05-18-2023 WBC corrected for nucl RBC Auto (Bld) [#/Vol] 6.0 10*3/uL 3.8-11.6 [facility] Lymphocytes Auto (Bld) [#/Vo l]Ordered By: Lj Ryan on 05-18-2023 Lymphocytes (Bld) [#/Vol] 0.9 10*3/uL 1.00-4.8 [facility] Lymphocytes/100 WBC Auto (Bl d)Ordered By: Lj Ryan on 05-18-2023 Lymphocytes/100 WBC (Bld) 15.1 % . [facility] MCH Auto (RBC) [Entitic mass ]Ordered By: Lj Ryan on 05-18-2023 MCH (RBC) [Entitic mass] 30.2 pg 24.7-34.3 [facility] MCHC Auto (RBC) [Mass/Vol]Or dered By: Lj Ryan on 05-18-2023 MCHC (RBC) [Mass/Vol] 34.4 g/dL 32.0-35.0 [facility] MCV Auto (RBC) [Entitic vol] Ordered By: Lj Ryan on 05-18-2023 MCV (RBC) [Entitic vol] 87.7 fL 80-100 [facility] Magnesium [Mass/volume] in S courtney or PlasmaOrdered By: Lj Ryan on 05-18-2023 Magnesium [Mass/Vol] 2.1 mg/dL 1.9-2.7 [facility] Monocytes Auto (Bld) [#/Vol] Ordered By: Lj Ryan on 05-18-2023 Monocytes (Bld) [#/Vol] 0.5 10*3/uL 0.0-0.8 [facility] Monocytes/100 WBC Auto (Bld) Ordered By: Lj Ryan on 05-18-2023 Monocytes/100 WBC (Bld) 8.7 % . [facility] Neutrophils Auto (Bld) [#/Vo l]Ordered By: Lj Ryan on 05-18-2023 Neutrophils (Bld) [#/Vol] 4.4 10*3/uL 1.8-7.7 [facility] Neutrophils/100 WBC Auto (Bl d)Ordered By: Lj Ryan on 05-18-2023 Neutrophils/100 WBC (Bld) 73.6 % . [facility] No Panel InformationOrdered By: Lj Ryan on 05-18-2023 Estimated GFR (CKD-EPI) 39.034 mL/Min [facility] Creatinine Clearance (Chem 38.04 [facility] Nucleated erythrocytes [Pres ence] in Blood by Automated countOrdered By: Lj Ryan on 05-18-2023 Nucleated RBC Auto Ql (Bld) 0.1 /100{WBC} 0-0.5 [facility] Phosphate [Mass/volume] in S courtney or PlasmaOrdered By: Lj Ryan on 05-18-2023 Phosphate [Mass/Vol] 5.3 mg/dL 3.7-7.2 [facility] Platelet mean volume Auto (B ld) [Entitic vol]Ordered By: Lj Ryan on 05-18-2023 Platelet mean volume (Bld) [Entitic vol] 7.8 fL 6.3-10.7 [facility] Platelets Auto (Bld) [#/Vol] Ordered By: Lj Ryan on 05-18-2023 Platelets (Bld) [#/Vol] 314 10*3/uL 150-450 [facility] Potassium [Moles/volume] in Serum or PlasmaOrdered By: Lj Ryan on 05-18-2023 Potassium [Moles/Vol] 4.0 mmol/L 3.5-5.1 [facility] RBC Auto (Bld) [#/Vol]Ordere d By: Lj Ryan on 05-18-2023 RBC (Bld) [#/Vol] 3.21 10*6/uL 3.60-5.00 [facility] Serum or plasma anion gap de terminationOrdered By: Lj Ryan on 05-18-2023 Anion gap [Moles/Vol] 12.5 mmol/L 6.0-15.0 [facility] Sodium [Moles/volume] in Ser um or PlasmaOrdered By: Lj Ryan on 05-18-2023 Sodium [Moles/Vol] 142 mmol/L 136-145 [facility] Urea nitrogen [Mass/volume] in Serum or PlasmaOrdered By: Lj Ryan on 05-18-2023 Urea nitrogen [Mass/Vol] 21 mg/dL 7-25 [facility] WBC Auto (Bld) [#/Vol]Ordere d By: Lj Ryan on 05-18-2023 WBC (Bld) [#/Vol] 6.0 10*3/uL 3.8-11.6 [facility] Alanine aminotransferase [En zymatic activity/volume] in Serum or PlasmaOrdered By: Fernando Ch on 05-17-2023 ALT [Catalytic activity/Vol] 14 U/L 7-52 [facility] [facility] Albumin [Mass/volume] in Ser um or Plasma by Bromocresol green (BCG) dye binding methoOrdered By: Fernando Ch on 05-17-2023 Albumin BCG dye [Mass/Vol] 4.0 g/dL 3.5-5.7 [facility] Alkaline phosphatase [Enzyma tic activity/volume] in Serum or PlasmaOrdered By: Fernando Ch on 05-17-2023 ALP [Catalytic activity/Vol] 44 U/L 34-104 [facility] Aspartate aminotransferase [ Enzymatic activity/volume] in Serum or PlasmaOrdered By: Fernando Ch on 05-17-2023 AST [Catalytic activity/Vol] 16 U/L 13-39 [facility] Bilirubin.total [Mass/volume ] in Serum or PlasmaOrdered By: Fernando Ch on 05-17-2023 Bilirubin [Mass/Vol] 0.7 mg/dL 0.3-1.0 [facility] Creatine kinase [Enzymatic a ctivity/volume] in Serum or PlasmaOrdered By: Fernando Ch 05-17-2023 CK [Catalytic activity/Vol] 49 U/L 30-223 [facility] Globulin Calc (S) [Mass/Vol] Ordered By: Fernando Ch 05-17-2023 Globulin (S) [Mass/Vol] 2.9 g/dL [facility] Laboratory - CoagulationOrde red By: Fernando Ch on 05-17-2023 PT Coag (PPP) [Time] 12.5 s 9.0-12.9 [facility] Monocyte distribution width [Entitic volume] in Blood by AutomatedOrdered By: Fernando Ch on 05-17-2023 Monocyte distribution width Auto (Bld) [Entitic vol] 22.37 % 0.00-20.00 [facility] Comment on above: For adults in ED, MD W > 20.0 may be associated with a higher risk of sepsis during the first 12 hrs of hospital admission Natriuretic peptide B [Mass/ Vol]Ordered By: Fernando Ch on 05-17-2023 Natriuretic peptide B (Bld) [Mass/Vol] 450.0 pg/mL 5-100 [facility] Platelet poor plasma interna tional normalized ratio (INR) by coagulation assay (relatOrdered By: Fernando Ch on 05-17-2023 INR Coag (PPP) [Relative time] 1.1 {INR} [facility] Comment on above: INR Therapeutic [...] on 05-17-2023 Protein [Mass/Vol] 6.9 g/dL 6.4-8.9 [facility] Serum or plasma albumin/glob ulin mass ratioOrdered By: Fernando Ch on 05-17-2023 Albumin/Globulin [Mass ratio] 1.4 {ratio} [facility] Troponin I.cardiac [Mass/vol ume] in Serum or Plasma by Detection limit <= 0.01 ng/Ordered By: Fernando Ch on 05-17-2023 Troponin I.cardiac DL <= 0.01 ng/mL [Mass/Vol] 10.2 pg/mL 0.0-15.0 [facility] Activated partial thrombopla stin time (aPTT) in platelet poor plasma by coagulation aOrdered By: Jonna Perry on 03-08-2023 aPTT Coag (PPP) [Time] 32.0 s 25.1-36.5 [facility] Band form neutrophils/100 WB C Manual cnt (Bld)Ordered By: Jonna Perry on 03-08-2023 Band form neutrophils/100 WBC (Bld) 4 % 0-5 [facility] Basophils Auto (Bld) [#/Vol] Ordered By: Jonna Perry on 03-08-2023 Basophils (Bld) [#/Vol] N/A [facility] Basophils/100 WBC Auto (Bld) Ordered By: Jonna Perry on 03-08-2023 Basophils/100 WBC (Bld) N/A [facility] Basophils/100 WBC Manual cnt (Bld)Ordered By: Jonna Perry on 03-08-2023 Basophils/100 WBC (Bld) 0 % 0-2 [facility] Carbon dioxide, total [Moles /volume] in Serum or PlasmaOrdered By: Jonna Perry on 03-08-2023 CO2 [Moles/Vol] 33.1 mmol/L 21.0-31.0 [facility] Chloride [Moles/volume] in S courtney or PlasmaOrdered By: Jonna Perry on 03-08-2023 Chloride [Moles/Vol] 104 mmol/L 98-107 [facility] Cholesterol [Mass/volume] in Serum or PlasmaOrdered By: Jonna Perry on 03-08-2023 Cholesterol [Mass/Vol] 151 mg/dL 140-200 [facility] Comment on above: Chol less than 200 m g/dl low riskChol 201-239 mg/dl borderline riskChol 240 mg/dl and greater high risk Cholesterol in LDL Calc [Mas s/Vol]Ordered By: Jonna Perry on 03-08-2023 Cholesterol in LDL [Mass/Vol] 100 mg/dL 0-100 [facility] Comment on above: LDL ATP III CLASSIFI CATIONLDL less than 100 mg/dL OptimalLDL 100-129 mg/dL Near or above optimalLDL 130-159 mg/dL Borderline highLDL 160-189 mg/dL HighLDL greater than 189 mg/dL Very high Cholesterol in VLDL Calc [Ma ss/Vol]Ordered By: Jonna Perry on 03-08-2023 Cholesterol in VLDL [Mass/Vol] 13 mg/dL [facility] Creatinine [Mass/volume] in Serum or PlasmaOrdered By: Jonna Perry on 03-08-2023 Creatinine [Mass/Vol] 1.14 mg/dL 0.60-1.20 [facility] Eosinophils Auto (Bld) [#/Vo l]Ordered By: Jonna Perry on 03-08-2023 Eosinophils (Bld) [#/Vol] N/A [facility] Eosinophils/100 WBC Auto (Bl d)Ordered By: Jonna Perry on 03-08-2023 Eosinophils/100 WBC (Bld) N/A [facility] Eosinophils/100 WBC Manual c nt (Bld)Ordered By: Jonna Perry on 03-08-2023 Eosinophils/100 WBC (Bld) 2 % 1-3 [facility] Erythrocyte distribution wid th Auto (RBC) [Ratio]Ordered By: Jonna Perry on 03-08-2023 Erythrocyte distribution width (RBC) [Ratio] 14.1 % 11.9-15.3 [facility] Hematocrit Auto (Bld) [Volum e fraction]Ordered By: oJnna Perry on 03-08-2023 Hematocrit (Bld) [Volume fraction] 30.7 % 34.0-46.4 [facility] Hemoglobin [Mass/volume] in BloodOrdered By: Jonna Perry on 03-08-2023 Hemoglobin (Bld) [Mass/Vol] 10.3 g/dL 11.8-15.4 [facility] Laboratory - Chemistry and C hemistry - challengeon 03-08-2023 Cholesterol [Mass/Vol] 151\S\151 Normal 140-200 [facility] y 250 DO Work Phone: Comment on above: Chol less than 200 m g/dl low risk Chol 201-239 mg/dl borderline risk Chol 240 mg/dl and greater high risk Cholesterol in LDL [Mass/Vol] 100\S\100 Normal 0-100 [facility] y 250 DO Work Phone: Comment on above: LDL ATP III CLASSIFI CATION LDL less than 100 mg/dL Optimal LDL 100-129 mg/dL Near or above optimal LDL 130-159 mg/dL Borderline high LDL 160-189 mg/dL High LDL greater than 189 mg/dL Very high Laboratory - CoagulationOrde red By: Jonna Perry on 03-08-2023 PT Coag (PPP) [Time] 12.2 s 9.0-12.9 [facility] Leukocytes [#/volume] correc miguel for nucleated erythrocytes in Blood by Automated counOrdered By: Jonna Perry on 03-08-2023 WBC corrected for nucl RBC Auto (Bld) [#/Vol] 6.2 10*3/uL 3.8-11.6 [facility] Lymphocytes Auto (Bld) [#/Vo l]Ordered By: Jonna Perry on 03-08-2023 Lymphocytes (Bld) [#/Vol] N/A [facility] Lymphocytes/100 WBC Auto (Bl d)Ordered By: Jonna Perry on 03-08-2023 Lymphocytes/100 WBC (Bld) N/A [facility] Lymphocytes/100 WBC Manual c nt (Bld)Ordered By: Jonna Perry on 03-08-2023 Lymphocytes/100 WBC (Bld) 16 % 18-42 [facility] MCH Auto (RBC) [Entitic mass ]Ordered By: Jonna Perry on 03-08-2023 MCH (RBC) [Entitic mass] 29.0 pg 24.7-34.3 [facility] MCHC Auto (RBC) [Mass/Vol]Or dered By: Jonna Perry on 03-08-2023 MCHC (RBC) [Mass/Vol] 33.6 g/dL 32.0-35.0 [facility] MCV Auto (RBC) [Entitic vol] Ordered By: Jonna Perry on 03-08-2023 MCV (RBC) [Entitic vol] 86.2 fL 80-100 [facility] Metamyelocytes/100 WBC Manua l cnt (Bld)Ordered By: Jonna Perry on 03-08-2023 Metamyelocytes/100 WBC (Bld) 1 % 0-0 [facility] Monocytes Auto (Bld) [#/Vol] Ordered By: Jonna Perry on 03-08-2023 Monocytes (Bld) [#/Vol] N/A [facility] Monocytes/100 WBC Auto (Bld) Ordered By: Jonna Perry on 03-08-2023 Monocytes/100 WBC (Bld) N/A [facility] Monocytes/100 WBC Manual cnt (Bld)Ordered By: Jonna Perry on 03-08-2023 Monocytes/100 WBC (Bld) 3 % 2-11 [facility] Neutrophils Auto (Bld) [#/Vo l]Ordered By: Jonna Perry on 03-08-2023 Neutrophils (Bld) [#/Vol] N/A [facility] Neutrophils/100 WBC Auto (Bl d)Ordered By: Jonna Perry on 03-08-2023 Neutrophils/100 WBC (Bld) N/A [facility] No Panel InformationOrdered By: Jonna Perry on 03-08-2023 Estimated GFR (CKD-EPI) 48.665 mL/Min [facility] Pharmacy Creatinine Clearance (Chem N/A [facility] No Panel Informationon 03-08 32.0\S\32.0 Normal 25.1-36.5 [facility] y 250 DO Work Phone: Comment on above: PERFORMED BY:[facility] [place], [place] [id number] MEDICAL DIRECTORJAMAAL MO M.D. 1.1\S\1.1 Normal [facility] y 250 DO Work Phone: Comment [...] valves: 3 - 4.5 12.2\S\12.2 Normal 9.0-12.9 [facility] 250 DO Work Phone: 9.0\S\9.0 Normal 6.3-10.7 [facility] Lu y 250 DO Work Phone: [phone] 33.1\S\33.1 above high threshold 21.0-31.0 [facility] 250 DO Work Phone: [phone] 104\S\104 Normal 98-107 [facility] 250 DO Work Phone: [phone] 5.1\S\5.1 Normal 3.5-5.1 [facility] 250 DO Work Phone: 141\S\141 Normal 136-145 [facility] 250 DO Work Phone: 21\S\21 Normal 7-25 [facility] 250 DO Work Phone: [phone] 48.665\S\48.665 Normal [facility] Lu melton 250 DO Work Phone: [phone] 1.14\S\1.14 Normal 0.60-1.20 [facility] [place] 250 DO Work Phone: [phone] 4.0\S\4.0 Normal <5.0 [facility] 250 DO Work Phone: Comment on above: PERFORMED BY:[facility] [place], [place] [phone] MEDICAL DIRECTORJAMAAL MO M.D. 13\S\13 Normal [facility] [place] 250 DO Work Phone: [phone] 67\S\67 Normal 0-149 [facility] Lu [place] 250 DO Work Phone: Comment on above: TRIG ATP III CLASSIF ICATION TRIG less than 150 mg/dL Normal TRIG 150-199 mg/dL Borderline high TRIG 200-500 mg/dL High TRIG greater than 500 mg/dL Very high Standard traceable to the Center for Disease Conrtrol and Prevention (CDC) test method. 38\S\38 Normal 35-85 [facility] Lu [place] 250 DO Work Phone: Comment on above: HDL CHOL ATP-III CLA SSIFICATION Cardiovascular Risk HDL > or equal to 60 mg/dL LOW HDL < 40 mg/dL HIGH 74\S\74 above high threshold 50-70 [facility] Lu [place] 250 DO Work Phone: [phone] 276\S\276 Normal 150-450 [facility] Lu [place] 250 DO Work Phone: 14.1\S\14.1 Normal 11.9-15.3 [facility] Lu [place] 250 DO Work Phone: [phone] 33.6\S\33.6 Normal 32.0-35.0 [facility] [facility] 250 DO Work Phone: [phone] 29.0\S\29.0 Normal 24.7-34.3 [facility] 250 DO Work Phone: [phone] 1\S\1 above high threshold 0-0 [facility] 250 DO Work Phone: [phone] 0\S\0 Normal 0-2 [facility] [facility] 250 DO Work Phone: [phone] 2\S\2 Normal 1-3 [facility] 250 DO Work Phone: [phone] 3\S\3 Normal 2-11 [facility] [facility] 250 DO Work Phone: [phone] 16\S\16 below low threshold 18-42 [facility] [facility] 250 DO Work Phone: [phone] 4\S\4 Normal 0-5 [facility] [facility] 250 DO Work Phone: [phone] Slight Normal [facility] [facility] 250 DO Work Phone: [phone] Comment on above: PERFORMED BY:[facility] [place] [phone] MEDICAL DIRECTORJAMAAL MO M.D. Normal Normal Normal [facility] [facility] 250 DO Work Phone: [phone] 86.2\S\86.2 Normal 80-100 [facility] [facility] 250 DO Work Phone: [phone] 30.7\S\30.7 below low threshold 34.0-46.4 [facility] [facility] 250 DO Work Phone: [phone] 10.3\S\10.3 below low threshold 11.8-15.4 [facility] [facility] 250 DO Work Phone: [phone] 3.56\S\3.56 below low threshold 3.60-5.00 [facility] [facility] 250 DO Work Phone: 8.6\S\8.6 Normal 3.8-11.6 -[facility] y 250 DO Work Phone: 6.2\S\6.2 Normal 3.8-11.6 [facility] [facility] 250 DO Work Phone: Nucleated erythrocytes [Pres ence] in Blood by Automated countOrdered By: Jonna Perry on 03-08-2023 Nucleated RBC Auto Ql (Bld) N/A [facility] Ovalocyte detectionOrdered B y: Jonna Perry on 03-08-2023 Ovalocytes LM Ql (Bld) Slight [facility] Platelet adequacy [Presence] in Blood by Light microscopyOrdered By: Jonna Perry on 03-08-2023 Platelets LM Ql (Bld) Normal Normal [facility] Platelet mean volume Auto (B ld) [Entitic vol]Ordered By: Jonna Perry on 03-08-2023 Platelet mean volume (Bld) [Entitic vol] 9.0 fL 6.3-10.7 [facility] Platelet morphology finding [Identifier] in BloodOrdered By: Jonna Perry on 03-08-2023 Platelet morphology finding Nom (Bld) N/A [facility] Platelet poor plasma interna tional normalized ratio (INR) by coagulation assay (relatOrdered By: Jonna Perry on 03-08-2023 INR Coag (PPP) [Relative time] 1.1 {INR} [facility] Comment on above: INR Therapeutic [...] 03-08-2023 Platelets (Bld) [#/Vol] 276 10*3/uL 150-450 [facility] Platelets Large [Presence] i n Blood by Light microscopyOrdered By: Jonna Perry on 03-08-2023 Platelets Large LM Ql (Bld) Slight [facility] Poikilocytosis [Presence] in Blood by Light microscopyOrdered By: Jonna Perry on 03-08-2023 Poikilocytosis LM Ql (Bld) Slight [facility] Potassium [Moles/volume] in Serum or PlasmaOrdered By: Jonna Perry on 03-08-2023 Potassium [Moles/Vol] 5.1 mmol/L 3.5-5.1 [facility] RBC Auto (Bld) [#/Vol]Ordere d By: Jonna Perry on 03-08-2023 RBC (Bld) [#/Vol] 3.56 10*6/uL 3.60-5.00 [facility] RBC morphologyOrdered By: Jonna Perry on 03-08-2023 RBC morphology finding Nom (Bld) N/A [facility] Segmented neutrophils/100 WB C Manual cnt (Bld)Ordered By: Jonna Perry on 03-08-2023 Segmented neutrophils/100 WBC (Bld) 74 % 50-70 [facility] Serum or plasma anion gap de terminationOrdered By: Jonna Perry on 03-08-2023 Anion gap [Moles/Vol] 9.0 mmol/L 6.0-15.0 [facility] Serum or plasma high density lipoprotein (HDL) cholesterol measurementOrdered By: Jonna Perry on 03-08-2023 Cholesterol in HDL [Mass/Vol] 38 mg/dL 35-85 [facility] Comment on above: HDL CHOL ATP-III CLA SSIFICATION Cardiovascular RiskHDL > or equal to 60 mg/dL LOWHDL < 40 mg/dL HIGH Serum or plasma total choles terol/high density lipoprotein (HDL) cholesterol mass ratOrdered By: Jonna Perry on 03-08-2023 Cholesterol.total/Cho lesterol in HDL [Mass ratio] 4.0 {ratio} <5.0 [facility] Sodium [Moles/volume] in Ser um or PlasmaOrdered By: oJnna Perry on 03-08-2023 Sodium [Moles/Vol] 141 mmol/L 136-145 [facility] Triglyceride [Mass/volume] i n Serum or PlasmaOrdered By: Jonna Perry on 03-08-2023 Triglyceride [Mass/Vol] 67 mg/dL 0-149 [facility] Comment on above: TRIG ATP III CLASSIF ICATIONTRIG less than 150 mg/dL NormalTRIG 150-199 mg/dL Borderline highTRIG 200-500 mg/dL High TRIG greater than 500 mg/dL Very highStandard traceable to the Center for Disease Conrtrol and Prevention (CDC) test method. Urea nitrogen [Mass/volume] in Serum or PlasmaOrdered By: Jonna Perry on 03-08-2023 Urea nitrogen [Mass/Vol] 21 mg/dL 7-25 [facility] WBC Auto (Bld) [#/Vol]Ordere d By: Jonna Perry on 03-08-2023 WBC (Bld) [#/Vol] 8.6 10*3/uL 3.8-11.6 [facility] Office Visit (Cardiology)on 03-07-2023 Follow-up visit [...] Former smoker Tobacco Use Screening; Status:Complete; Done: [id number] Tobacco Use Screening; Status:Complete; Done: [id number] Patient Instructions Please bring all medicines, vitamins, [...] associated with accelerated hypertension, was admitted to [facility] briefly, diuresed approximately 14 pounds with diuretics. [...] Surgical History Problems History of Complete colonoscopy 2013 History of Hysterectomy Current Meds Medication NameInstruction [...] 1 coffee at hs Former smoker (V15.82) (Z87.021) 1997 No alcohol use No illicit drug [...] negative for complaint. Vitals Vital Signs Recorded: [id number] 10:14AMRecorded: [id number] 10:04AM [id number], RUE, [id number] (more content not included)... Normal [facility] Tobacco Screening.on 023 Adult depression screening assessment No [facility] y 250 DO Work Phone: Fall risk assessment a) No falls within the last year [facility] y 250 DO Work Phone: Tobacco use status CP b) No [facility] [employer] 250 DO Work Phone: CBC AUTO DIFFon 03-01-2023 BASO # 0.0 103/ul Normal 0.0-0.[address] [facility] Comment on above: Performed By: #### C BC #### [facility] [address] [place] [address] Dr. Jose David Shanks Basophils/100 WBC (Bld) 0.5 % Normal 0.2-2.[address] [facility] Comment on above: Performed By: #### C BC #### [facility] [address], [place] [address] Dr. Jose David Shanks EO # 0.1 103/ul Normal 0.0-0.[address] [facility] Comment on above: Performed By: #### C BC #### [facility] [address] [place] [address] Dr. Jose David Shanks Eosinophils/100 WBC (Bld) 1.2 % Normal 0.9-7.[address] [facility] Comment on above: Performed By: #### C BC #### [facility] [address] [place] [address] Dr. Jose David Shanks Erythrocyte distribution width (RBC) [Ratio] 13.2 % Normal 11.0-15.[address] [facility] Comment on above: Performed By: #### C BC #### [facility] [address] [place] [address] Dr. Jose David Shanks Hematocrit (Bld) [Volume fraction] 33.9 % Critically low 36.0-48.[address] [facility] Comment on above: Performed By: #### C BC #### [facility] [address] [place] [address] Dr. Jose David Shanks Hemoglobin (Bld) [Mass/Vol] 11.0 g/dL Critically low 12.0-16.[address] [facility] Comment on above: Performed By: #### C BC #### [facility] [address] [place] [address] Dr. Jose David Shanks IG # 0.03 10e3/ul Normal 0.00-0.[address] [facility] Comment on above: Performed By: #### C BC #### [facility] [address] [place] [address] Dr. Jose David Shanks IG % 0.5 % Normal 0.0-0.5 [facility] Comment on above: Performed By: #### C BC #### [facility] [address] [place] [address] Dr. Jose David Shanks LYMPH # 0.8 103/ul Critically low 1.2-3.8 [facility] Comment on above: Performed By: #### C BC #### [facility] [address] [place] [address] Dr. Jose David Shanks Lymphocytes/100 WBC (Bld) 13.7 % Critically low 20.5-60.[address] [facility] Comment on above: Performed By: #### C BC #### [facility] [address] [place] [address] Dr. Jose David Shanks MANUAL DIFF REQ NO Normal [facility] Comment on above: Performed By: #### C BC #### [facility] [address] [place] [address] Dr. Jose David Shanks MCH (RBC) [Entitic mass] 28.9 pg Normal 26.7-34.[address] [facility] Comment on above: Performed By: #### C BC #### [facility] [address] [place] [address] Dr. Jose David Shanks MCHC (RBC) [Mass/Vol] 32.4 g/dL Normal 29.9-35.[address] [facility] Comment on above: Performed By: #### C BC #### [facility] [address] [place] [address] Dr. Jose David Shanks MCV (RBC) [Entitic vol] 89.0 fL Normal 81.0-99.[address] [facility] Comment on above: Performed By: #### C BC #### [facility] [address] [place] [address] Dr. Jose David Shanks MONO # 0.5 103/ul Normal 0.3-0.[address] [facility] Comment on above: Performed By: #### C BC #### [facility] [address] [place] [address] Dr. Jose David Shanks Monocytes/100 WBC (Bld) 8.2 % Normal 1.7-12.0 [facility] Comment on above: Performed By: #### C BC #### [facility] [address] [place] [address] Dr. Jose David Shanks NEUT # 4.3 103/ul Normal 1.4-6.[address] [facility] Comment on above: Performed By: #### C BC #### [facility] [address] [place] [address] Dr. Jose David Shanks Neutrophils/100 WBC (Bld) 75.9 % Critically high 43.0-75.[address] [facility] Comment on above: Performed By: #### C BC #### [facility] [address] [place] [address] Dr. Jose David Shanks Platelet mean volume (Bld) [Entitic vol] 10.1 fL Normal 9.5-13.[address] [facility] Comment on above: Performed By: #### C BC #### [facility] [address] [place] [address] Dr. Jose David Shanks PLT 279 103/ul Normal 150-[address] [facility] Comment on above: Performed By: #### C BC #### [facility] [address] [place] [address] Dr. Jose David Shanks RBC 3.81 106/ul Critically low 4.20-5.40 [facility] Comment on above: Performed By: #### C BC #### [facility] [address] [place] [address] Dr. Jose David Shanks WBC 5.7 103/ul Normal 4.0-11.[address] [facility] Comment on above: Performed By: #### C BC #### [facility] [address] [place] [address] Dr. Jose David Shanks FERRITINon 03-01-2023 Ferritin [Mass/Vol] 180.0 ng/mL Normal 8.0-252.[address] [facility] Comment on above: Performed By: #### C BC #### [facility] [address] [place] [address] Dr. Jose David Shanks IRON AND TIBCon 03-01-2023 % SATURATION 23.6 % Normal [facility] Comment on above: Performed By: #### C BC #### [facility] [address] [place] [address] Dr. Jose David Shanks Iron [Mass/Vol] 61.0 ug/dL Normal 50.0-170.0 [facility] Comment on above: Performed By: #### C BC #### [facility] [address] [place] [address] Dr. Jose David Shanks TIBC DIRECT 258.0 ug/dL Normal 250.0-450.0 [facility] Comment on above: Performed By: #### C BC #### [facility] [address] [address] [address] Jose David Shanks NM STRESS/REST MULTIon 03-01 NM STRESS/REST MULTI Patient: GERMANIA JOAQUIN Exam Date: 03/01/2023 : 1940 Gender:F Ordering : DR NATHAN HATHAWAY D.O. Admission #: [id number] Family : Order #: [id number] CLICK HERE TO VIEW EXAM RADIOLOGY REPORT [...] STUDY: PERFUSION DEFECT: LOCATION: Mid-anterior. Apical anterior. [place]. SIZE: Medium (3-4 segments). SEVERITY: Moderate. TYPE: [...] MD on 03/01/2023 at 14:54 Normal [facility] PROF CHEM 8 (BAS METB)on Anion gap [Moles/Vol] 8.8 mmol/L Normal [facility] Comment on above: Performed By: #### L ACT #### [facility] [address] [address] [address] Jose David Shanks Calcium [Mass/Vol] 9.0 mg/dL Normal 8.5-10.1 [facility] Comment on above: Performed By: #### L ACT #### [facility] [address] [address] [address] Jose David Shanks Chloride [Moles/Vol] 106 mmol/L Normal 98-107 [facility] Comment on above: Performed By: #### L ACT #### [facility] [address] [address] [address] Jose David Shanks CO2 [Moles/Vol] 31.0 mmol/L Normal 21.0-32.0 [facility] Comment on above: Performed By: #### L ACT #### [facility] [address] [address] [address] Jose David Shanks Creatinine [Mass/Vol] 1.18 mg/dL Critically high 0.55-1.[address] [facility] Comment on above: Performed By: #### L ACT #### [facility] [address] [address] [address] Jose David Shanks EGFR-AF NIGERIEN 53 mL/min/1.73m2 Critically low >=60 [facility] Comment on above: Performed By: #### L ACT #### [facility] [address] [address] [address] Jose David Shanks EGFR-NON AF NIGERIEN 44 mL/min/1.73m2 Critically low >=60 [facility] Comment on above: Performed By: #### L ACT #### [facility] [address] [address] [address] Jose David Shanks Glucose [Mass/Vol] 98 mg/dL Normal 74-106 [facility] Comment on above: Performed By: #### L ACT #### [facility] [address] [address] [address] Jose David Shanks Potassium [Moles/Vol] 4.8 mmol/L Normal 3.5-5.1 [facility] Comment on above: Performed By: #### L ACT #### [facility] [address] [place] [address] Dr. Jose David Shanks Sodium [Moles/Vol] 141 mmol/L Normal 136-[address] [facility] Comment on above: Performed By: #### L ACT #### [facility] [address] [place] [address] Dr. Jose David Shanks Urea nitrogen [Mass/Vol] 16.0 mg/dL Normal 7.0-18.[address] [facility] Comment on above: Performed By: #### L ACT #### [facility] [address] [place] [address] Dr. Jose David Shanks Urea nitrogen/Creatinine [Mass ratio] 13.6 mg/mg Normal [facility] Comment on above: Performed By: #### L ACT #### [facility] [address] [place] [address] Dr. Jose David Shanks RETICULOCYTEon 03-01-2023 RETIC 1.51 % Normal 0.60-3.[address] [facility] Comment on above: Performed By: #### C BC #### [facility] [address] [place] [address] Dr. Jose David Shanks VIT B12 AND FOLATEon 023 Cobalamin (Vitamin B12) [Mass/Vol] 1406.0 pg/mL Critically high 193.0-986.[address] [facility] Comment on above: Performed By: #### C BC #### [facility] [address] [place] [address] Dr. Jose David Shanks FOLATE 19.00 ng/mL Normal 8.60-58.[address] [facility] Comment on above: Performed By: #### C BC #### [facility] [address] [place] [address] Dr. Jose David Shanks CBC AUTO DIFFon 02-09-2023 BASO # 0.0 103/ul Normal 0.0-0.[address] [facility] Comment on above: Performed By: #### C BC #### [facility] [address] [place] [address] Dr. Jose David Shanks Basophils/100 WBC (Bld) 0.6 % Normal 0.2-2.[address] [facility] Comment on above: Performed By: #### C BC #### [facility] [address] [place] [address] Dr. Jose David Shanks EO # 0.1 103/ul Normal 0.0-0.[address] [facility] Comment on above: Performed By: #### C BC #### [facility] [address] [place] [address] Dr. Jose David Shanks Eosinophils/100 WBC (Bld) 2.7 % Normal 0.9-7.[address] [facility] Comment on above: Performed By: #### C BC #### [facility] [address] [place] [address] Dr. Jose David Shanks Erythrocyte distribution width (RBC) [Ratio] 13.5 % Normal 11.0-15.[address] [facility] Comment on above: Performed By: #### C BC #### [facility] [address] [place] [address] Dr. Jose David Shanks Hematocrit (Bld) [Volume fraction] 30.0 % Critically low 36.0-48.[address] [facility] Comment on above: Performed By: #### C BC #### [facility] [address] [place] [address] Dr. Jose David Shanks Hemoglobin (Bld) [Mass/Vol] 10.0 g/dL Critically low 12.0-16.[address] [facility] Comment on above: Performed By: #### C BC #### [facility] [address] [place] [address] Dr. Jose David Shanks IG # 0.02 10e3/ul Normal 0.00-0.[address] [facility] Comment on above: Performed By: #### C BC #### [facility] [address] [place] [address] Dr. Jose David Shanks IG % 0.4 % Normal 0.0-0.[address] [facility] Comment on above: Performed By: #### C BC #### [facility] [address] [place] [address] Dr. Jose David Shanks LYMPH # 0.9 103/ul Critically low 1.2-3.8 [facility] Comment on above: Performed By: #### C BC #### [facility] [address] [address] [address] Jose David Shanks Lymphocytes/100 WBC (Bld) 19.3 % Critically low 20.5-60.[address] [facility] Comment on above: Performed By: #### C BC #### [facility] [address] [place] [address] Dr. Jose David Shanks MANUAL DIFF REQ NO Normal [facility] Comment on above: Performed By: #### C BC #### [facility] [address] [place] [address] Dr. Jose David Shanks MCH (RBC) [Entitic mass] 29.3 pg Normal 26.7-34.0 [facility] Comment on above: Performed By: #### C BC #### [facility] [address] [place] [address] Dr. Jose David Shanks MCHC (RBC) [Mass/Vol] 33.3 g/dL Normal 29.9-35.2 [facility] Comment on above: Performed By: #### C BC #### [facility] [address] [place] [address] Dr. Jose David Shanks MCV (RBC) [Entitic vol] 88.0 fL Normal 81.0-99.[address] [facility] Comment on above: Performed By: #### C BC #### [facility] [address] [place] [address] Dr. Jose David Shanks MONO # 0.4 103/ul Normal 0.3-0.8 [facility] Comment on above: Performed By: #### C BC #### [facility] [address] [place] [address] Dr. Jose David Shanks Monocytes/100 WBC (Bld) 8.3 % Normal 1.7-12.0 [facility] Comment on above: Performed By: #### C BC #### [facility] [address] [place] [address] Dr. Jose David Shanks NEUT # 3.3 103/ul Normal 1.4-6.5 [facility] Comment on above: Performed By: #### C BC #### [facility] [address] [address] [address] Jose David Shanks Neutrophils/100 WBC (Bld) 68.7 % Normal 43.0-75.[address] [facility] Comment on above: Performed By: #### C BC #### [facility] [address] [address] [address] Jose David Shanks Platelet mean volume (Bld) [Entitic vol] 9.9 fL Normal 9.5-13.[address] [facility] Comment on above: Performed By: #### C BC #### [facility] [address] [address] [address] Jose David Shanks PLT 259 103/ul Normal 150-[address] [facility] Comment on above: Performed By: #### C BC #### [facility] [address] [place] [address] Dr. Jose David Shanks RBC 3.41 106/ul Critically low 4.20-5.40 [facility] Comment on above: Performed By: #### C BC #### [facility] [address] [address] [address] Jose David Shanks WBC 4.8 103/ul Normal 4.0-11.[address] [facility] Comment on above: Performed By: #### C BC #### [facility] [address] [place] [address] Dr. Jose David Shanks PROF CHEM 8 (BAS METB)on Anion gap [Moles/Vol] 11.7 mmol/L Normal [facility] Comment on above: Performed By: #### L ACT #### [facility] [address] [place] [address] Dr. Jose David Shanks Calcium [Mass/Vol] 8.6 mg/dL Normal 8.5-10.[address] [facility] Comment on above: Performed By: #### L ACT #### [facility] [address] [address] [address] Jose David Shanks Chloride [Moles/Vol] 107 mmol/L Normal 98-[address] [facility] Comment on above: Performed By: #### L ACT #### [facility] [address] [address] [address] Jose David Shanks CO2 [Moles/Vol] 30.9 mmol/L Normal 21.0-32.0 [facility] Comment on above: Performed By: #### L ACT #### [facility] [address] [address] [address] Jose David Shanks Creatinine [Mass/Vol] 1.04 mg/dL Critically high 0.55-1.[address] [facility] Comment on above: Performed By: #### L ACT #### [facility] [address] [address] [address] Jose David Shanks EGFR-AF NIGERIEN >60 Normal >=60 [facility] Comment on above: Performed By: #### L ACT #### [facility] [address] [address] [address] Jose David Shanks EGFR-NON AF NIGERIEN 51 mL/min/1.73m2 Critically low >=[address] [facility] Comment on above: Performed By: #### L ACT #### [facility] [address] [address] [address] Jose David Shanks Glucose [Mass/Vol] 97 mg/dL Normal 74-[address] [facility] Comment on above: Performed By: #### L ACT #### [facility] [address] [address] [address] Jose David Shanks Potassium [Moles/Vol] 3.6 mmol/L Normal 3.5-5.[address] [facility] Comment on above: Performed By: #### L ACT #### [facility] [address] [address] [address] Jose David Shanks Sodium [Moles/Vol] 146 mmol/L Critically high 136-145 [facility] Comment on above: Performed By: #### L ACT #### [facility] [address] [address] [address] Jose David Shanks Urea nitrogen [Mass/Vol] 17.0 mg/dL Normal 7.0-18.[address] [facility] Comment on above: Performed By: #### L ACT #### [facility] [address] [address] [address] Jose David Shanks Urea nitrogen/Creatinine [Mass ratio] 16.3 mg/mg Normal [facility] Comment on above: Performed By: #### L ACT #### [facility] [address] [address] [address] Jose David Shanks XR CHEST 2 [...] EDWARD MENA Date: 2023-02-09 15:56 Normal [facility] BNPon 02-08-2023 Natriuretic peptide B (Bld) [Mass/Vol] 1007.0 pg/mL Normal <=1,800.[address] [facility] Comment on above: Performed By: #### B NURSING ADMIN #### [facility] [address] [place] [address] Dr. Jose David Shanks CARDIAC TALI 3-6on 3 CK [Catalytic activity/Vol] 29 U/L Normal 26-[address] [facility] Comment on above: Performed By: #### C MREP #### [facility] [address] [address] [address] Jose David Shanks CK.MB [Mass/Vol] 0.90 ng/mL Normal <=3.60 [facility] Comment on above: Performed By: #### C MREP #### [facility] [address] [place] [address] Dr. Jose David Shanks HSTROP 69.4 pg/mL Critically high 4.0-51.3 [facility] Comment on above: Result Comment: CUT- OFF POINTS HAVE BEEN ESTABLISHED BASED ON THE FOURTH UNIVERSAL DEFINITIONS OF MYOCARDIAL INFARCTION. THE UPPER REFERENCE LIMIT (URL) OF TROPONIN, DEFINED THE 99TH PERCENTILE OF cTnI DISTRIBUTION IN A REFERENCE POPULATION, HAS BEEN CONFIRMED THE DECISION THRESHOLD FOR IN DIAGNOSIS. Performed By: #### C MREP #### [facility] [address] [address] [address] Jose David Shanks CK [Catalytic activity/Vol] 23 U/L Critically low 26-[address] [facility] Comment on above: Performed By: #### C MREP #### [facility] [address] [address] [address] Jose David Shanks CK.MB [Mass/Vol] ng/mL Normal <=3.60 [facility] Comment on above: Performed By: #### C MREP #### [facility] [address] [address] [address] Jose David Shanks HSTROP 72.0 pg/mL Critically high 4.0-51.3 [facility] Comment on above: Result Comment: CUT- OFF POINTS HAVE BEEN ESTABLISHED BASED ON THE FOURTH UNIVERSAL DEFINITIONS OF MYOCARDIAL INFARCTION. THE UPPER REFERENCE LIMIT (URL) OF TROPONIN, DEFINED THE 99TH PERCENTILE OF cTnI DISTRIBUTION IN A REFERENCE POPULATION, HAS BEEN CONFIRMED THE DECISION THRESHOLD FOR IN DIAGNOSIS. Performed By: #### C MREP #### [facility] [address] [address] [address] Jose David Shanks CARDIAC TALI ADMITon 023 CK [Catalytic activity/Vol] 31 U/L Normal 26-[address] [facility] Comment on above: Performed By: #### C ELZA, BMP #### [facility] [address] [address] [address] Jose David Shanks CK.MB [Mass/Vol] ng/mL Normal <=3.60 [facility] Comment on above: Performed By: #### C ELZA, BMP #### [facility] [address] [address] [address] Jose David Shanks HSTROP 26.3 pg/mL Normal 4.0-51.[address] [facility] Comment on above: Result Comment: CUT- OFF POINTS HAVE BEEN ESTABLISHED BASED ON THE FOURTH UNIVERSAL DEFINITIONS OF MYOCARDIAL INFARCTION. THE UPPER REFERENCE LIMIT (URL) OF TROPONIN, DEFINED THE 99TH PERCENTILE OF cTnI DISTRIBUTION IN A REFERENCE POPULATION, HAS BEEN CONFIRMED THE DECISION THRESHOLD FOR IN DIAGNOSIS. Performed By: #### C ELZA, CASSIE #### [facility] [address] [address] [address] Jose David Shanks MAMI 52 ng/mL Normal 9-82 [facility] Comment on above: Performed By: #### C ELZA, BMP #### [facility] [address] [address] [address] Jose David Shanks CBC AUTO DIFFon 02-08-2023 BASO # 0.0 103/ul Normal 0.0-0.1 [facility] Comment on above: Performed By: #### L ACT #### [facility] [address] [place] [address] Dr. Jose David Shanks Basophils/100 WBC (Bld) 0.3 % Normal 0.2-2.[address] [facility] Comment on above: Performed By: #### L ACT #### [facility] [address] [place] [address] Dr. Jose David Shanks EO # 0.1 103/ul Normal 0.0-0.7 [facility] Comment on above: Performed By: #### L ACT #### [facility] [address] [place] [address] Dr. Jose David Shanks Eosinophils/100 WBC (Bld) 0.5 % Critically low 0.9-7.0 [facility] Comment on above: Performed By: #### L ACT #### [facility] [address] [place] [address] Dr. Jose David Shanks Erythrocyte distribution width (RBC) [Ratio] 13.4 % Normal 11.0-15.0 [facility] Comment on above: Performed By: #### L ACT #### [facility] [address] [place] [address] Dr. Jose David Shanks Hematocrit (Bld) [Volume fraction] 33.0 % Critically low 36.0-48.[address] [facility] Comment on above: Performed By: #### L ACT #### [facility] [address] [address] [address] Jose David Shanks Hemoglobin (Bld) [Mass/Vol] 11.1 g/dL Critically low 12.0-16.[address] [facility] Comment on above: Performed By: #### L ACT #### [facility] [address] [address] [address] Jose David Shanks IG # 0.06 10e3/ul Critically high 0.00-0.03 [facility] Comment on above: Performed By: #### L ACT #### [facility] [address] [address] [address] Jose David Shanks IG % 0.5 % Normal 0.0-0.[address] [facility] Comment on above: Performed By: #### L ACT #### [facility] [address] [address] [address] Jose David Shanks LYMPH # 0.8 103/ul Critically low 1.2-3.8 [facility] Comment on above: Performed By: #### L ACT #### [facility] [address] [address] [address] Jose David Shanks Lymphocytes/100 WBC (Bld) 7.0 % Critically low 20.5-60.[address] [facility] Comment on above: Performed By: #### L ACT #### [facility] [address] [address] [address] Jose David Shanks MANUAL DIFF REQ NO Normal [facility] Comment on above: Performed By: #### L ACT #### [facility] [address] [address] [address] Jose David Shanks MCH (RBC) [Entitic mass] 29.6 pg Normal 26.7-34.[address] [facility] Comment on above: Performed By: #### L ACT #### [facility] [address] [address] [address] Jose David Shanks MCHC (RBC) [Mass/Vol] 33.6 g/dL Normal 29.9-35.[address] [facility] Comment on above: Performed By: #### L ACT #### [facility] [address] [address] [address] Jose David Shanks MCV (RBC) [Entitic vol] 88.0 fL Normal 81.0-99.0 [facility] Comment on above: Performed By: #### L ACT #### [facility] [address] [place] [address] Dr. Jose David Shanks MONO # 0.6 103/ul Normal 0.3-0.8 [facility] Comment on above: Performed By: #### L ACT #### [facility] [address] [place] [address] Dr. Jose David Shanks Monocytes/100 WBC (Bld) 5.4 % Normal 1.7-12.0 [facility] Comment on above: Performed By: #### L ACT #### [facility] [address] [place] [address] Dr. Jose David Shanks NEUT # 9.9 103/ul Critically high 1.4-6.5 [facility] Comment on above: Performed By: #### L ACT #### [facility] [address] [place] [address] Dr. Jose David Shanks Neutrophils/100 WBC (Bld) 86.3 % Critically high 43.0-75.0 [facility] Comment on above: Performed By: #### L ACT #### [facility] [address] [place] [address] Dr. Jose David Shanks Platelet mean volume (Bld) [Entitic vol] 10.1 fL Normal 9.5-13.5 [facility] Comment on above: Performed By: #### L ACT #### [facility] [address] [place] [address] Dr. Jose David Shanks PLT 333 103/ul Normal 150-450 [facility] Comment on above: Performed By: #### L ACT #### [facility] [address] [place] [address] Dr. Jose David Shanks RBC 3.75 106/ul Critically low 4.20-5.40 [facility] Comment on above: Performed By: #### L ACT #### [facility] [address] [place] [address] Dr. Jose David Shanks WBC 11.5 103/ul Critically high 4.0-11.0 [facility] Comment on above: Performed By: #### L ACT #### [facility] [address] [id number] Jose David Shanks CULTURE BLOODon 02-08-2023 Microscopic examination of blood, culture Culture Observations: NO GROWTH AT 5 DAYS. Normal [facility] Comment on above: Performed By: #### L ACT #### [facility] [address] [address] [address] Jose David Shanks Microscopic examination of blood, culture Culture Observations: NO GROWTH AT 5 [address]. Normal [facility] Comment on above: Performed By: #### L ACT #### [facility] [address] [place] [address] Dr. Jose David Shanks ECHOCARDIO M/2D COMPLETEon 0 02-08-2023 ECHOCARDIO M/2D COMPLETE Patient: LASHAUN JOAQUIN Exam Date: 02/08/2023 : 1940 Gender:F Ordering : DR KOFI SCOTT . Admission #: [id number] Family : DR NATHAN HATHAWAY D.O. Order #: [id number] CLICK HERE TO VIEW EXAM ECHOCARDIOGRAM REPORT [...] Payne M.D. on 02/09/2023 at 19:[address] [facility] LACTATE/LACTIC ACIDon 2022 Lactate [Moles/Vol] 1.4 mmol/L Normal 0.4-2.0 [facility] Comment on above: Performed By: #### L ACT #### [facility] [address] [place] [address] Dr. Jose David Shanks Lactate [Moles/Vol] 1.4 mmol/L Normal 0.4-2.0 [facility] Comment on above: Performed By: #### L ACT #### [facility] [address] [place] [address] Dr. Jose David Shanks PROF CHEM 8 (BAS METB)on Anion gap [Moles/Vol] 11.9 mmol/L Normal [facility] Comment on above: Performed By: #### C ABHIJITM, BMP #### [facility] [address] [address] [address] Jose David Shanks Calcium [Mass/Vol] 9.0 mg/dL Normal 8.5-10.[address] [facility] Comment on above: Performed By: #### C MADM, BMP #### [facility] [address] [address] [address] Jose David Shanks Chloride [Moles/Vol] 105 mmol/L Normal 98-[address] [facility] Comment on above: Performed By: #### C ABHIJITM, BMP #### [facility] [address] [address] [address] Jose David Shanks CO2 [Moles/Vol] 28.2 mmol/L Normal 21.0-32.0 [facility] Comment on above: Performed By: #### C MADM, BMP #### [facility] [address] [address] [address] Jose David Shanks Creatinine [Mass/Vol] 0.99 mg/dL Normal 0.55-1.[address] [facility] Comment on above: Performed By: #### C MADM, BMP #### [facility] [address] [address] [address] Jose David Shanks EGFR-AF NIGERIEN >60 Normal >=60 [facility] Comment on above: Performed By: #### C MADM, BMP #### [facility] [address] [address] [address] Jose David Shanks EGFR-NON AF NIGERIEN 54 mL/min/1.73m2 Critically low >=[address] [facility] Comment on above: Performed By: #### C MADM, BMP #### [facility] [address] [address] [address] Jose David Shanks Glucose [Mass/Vol] 123 mg/dL Critically high 74-106 [facility] Comment on above: Performed By: #### C MADM, BMP #### [facility] [address] [address] [address] Jose David Shanks Potassium [Moles/Vol] 4.1 mmol/L Normal 3.5-5.[address] [facility] Comment on above: Performed By: #### C MADM, BMP #### [facility] [address] [address] [address] Jose David Shanks Sodium [Moles/Vol] 141 mmol/L Normal 136-[address] [facility] Comment on above: Performed By: #### C MADM, BMP #### [facility] [address] [address] [address] Jose David Shanks Urea nitrogen [Mass/Vol] 14.0 mg/dL Normal 7.0-18.[address] [facility] Comment on above: Performed By: #### C MADM, BMP #### [facility] [address] [address] [address] Jose David Shanks Urea nitrogen/Creatinine [Mass ratio] 14.1 mg/mg Normal [facility] Comment on above: Performed By: #### C MADM, BMP #### [facility] [address] [place] [address] Dr. Jose David Shanks RESPIRATORY PANEL PLUSon Adenovirus Not detected Normal NOT DETECTED [facility] Comment on above: Performed By: #### R SPLUS #### [facility] [address] [place] [address] Dr. Jose David Mccormack Parapertusis Not detected Normal NOT DETECTED [facility] Comment on above: Performed By: #### R SPLUS #### [facility] [address] [place] [address] Dr. Jose David Mccormack Pertussis Not detected Normal NOT DETECTED [facility] Comment on above: Performed By: #### R SPLUS #### [facility] [address] [place] [address] Dr. Jose David Shanks Chlamydia Pneumoniae Not detected Normal NOT DETECTED [facility] Comment on above: Performed By: #### R SPLUS #### [facility] [address] [place] [address] Dr. Jose David Shanks Coronavirus 229E Not detected Normal NOT DETECTED [facility] Comment on above: Performed By: #### R SPLUS #### [facility] [address] [place] [address] Dr. Jose David Shanks Coronavirus HKU1 Not detected Normal NOT DETECTED [facility] Comment on above: Performed By: #### R SPLUS #### [facility] [address] [place] [address] Dr. Jose David Shanks Coronavirus NL63 Not detected Normal NOT DETECTED [facility] Comment on above: Performed By: #### R SPLUS #### [facility] [address] [place] [address] Dr. Jose David Shanks Coronavirus OC43 Not detected Normal NOT DETECTED [facility] Comment on above: Performed By: #### R SPLUS #### [facility] [address] [place] [address] Dr. Jose David Shanks Influenza A H1 Not detected Normal NOT DETECTED [facility] Comment on above: Performed By: #### R SPLUS #### [facility] [address] [address] [address] Jose David Shanks Influenza A H1 2009 Not detected Normal NOT DETECTED [facility] Comment on above: Performed By: #### R SPLUS #### [facility] [address] [address] [address] Jose David Shanks Influenza A H3 Not detected Normal NOT DETECTED [facility] Comment on above: Performed By: #### R SPLUS #### [facility] [address] [place] [address] Dr. Jose David Shanks Influenza B Not detected Normal NOT DETECTED [facility] Comment on above: Performed By: #### R SPLUS #### [facility] [address] [address] [address] Jose David Shanks Metapneumovirus Not detected Normal NOT DETECTED [facility] Comment on above: Performed By: #### R SPLUS #### [facility] [address] [place] [address] Dr. Jose David Shanks Mycoplas. Pneumoniae Not detected Normal NOT DETECTED [facility] Comment on above: Performed By: #### R SPLUS #### [facility] [address] [place] [address] Dr. Jose David Shanks Parainfluenza 1 Not detected Normal NOT DETECTED [facility] Comment on above: Performed By: #### R SPLUS #### [facility] [address] [address] [address] Jose David Shanks Parainfluenza 2 Not detected Normal NOT DETECTED [facility] Comment on above: Performed By: #### R SPLUS #### [facility] [address] [place] [address] Dr. Jose David Shanks Parainfluenza 3 Not detected Normal NOT DETECTED [facility] Comment on above: Performed By: #### R SPLUS #### [facility] [address] [address] [address] Jose David Shanks Parainfluenza 4 Not detected Normal NOT DETECTED [facility] Comment on above: Performed By: #### R SPLUS #### [facility] [address] [place] [address] Dr. Jose David Shanks Rhino/Enterovirus Not detected Normal NOT DETECTED [facility] Comment on above: Performed By: #### R SPLUS #### [facility] [address] [place] [address] Dr. Jose David Shanks RP2 Header 1 RESPIRATORY PANEL: VIRUSES Normal [facility] Comment on above: Performed By: #### R SPLUS #### [facility] [address] [place] [address] Dr. Jose David Shanks RP2 Header 2 RESPIRATORY PANEL: BACTERIA Normal [facility] Comment on above: Performed By: #### R SPLUS #### [facility] [address] [place] [address] Dr. Jose David Shanks RSV Not detected Normal NOT DETECTED [facility] Comment on above: Performed By: #### R SPLUS #### [facility] [address] [place] [address] Dr. Jose David Shanks SARS-CoV-2 (COVID-19) RNA ZABRINA+probe Ql (Unsp spec) Not detected Normal NOT DETECTED [facility] Comment on above: Performed By: #### R SPLUS #### [facility] [address] [place] [address] Dr. Jose David Shanks XR CHEST 1 [...] Petra SAHU Date: 2023-02-08 05:21 Normal [facility] MG MAMM SCREEN 3D SCARLETT CADon 01-08-2023 MG MAMM SCREEN 3D SCARLETT CAD Patient: LASHAUN JOAQUIN Exam Date: 01/08/2023 : 1940 Gender:F Ordering : DR NATHAN HATHAWAY D.O. Admission #: [id number] Family : Order #: [id number] CLICK HERE TO VIEW EXAM RADIOLOGY REPORT [...] lung cancer at age 62. LOCATION: [facility] BREAST COMPOSITION: Extremely dense, [...] Dominguez MD on 01/08/2023 at 11:24 Normal [facility] CNOVSPon 12-04-2022 CNOVSP Visit (SP) Office (JONATHON) ----- LASHAUN JOAQUIN ([id number]) 1940 F Date Time Provider Department 12/04/22 [...] lower extremiti (more content not included)... Normal [facility] CBC W Auto Differential pane l (Bld)on 11-27-2022 Basophils (Bld) [#/Vol] 0.04 10*3/uL Normal <0.11 [facility] Comment on above: Order Comment: Speci men Type: BLOOD SPECIMEN Ordering Facility: [facility] Address: [address] [address] Performed By: #### 5 7021-8 #### [facility] CLIA [id number] [address] [place] [address] 68255 Basophils/100 WBC (Bld) 0.8 % Normal [facility] Comment on above: Order Comment: Speci men Type: BLOOD SPECIMEN Ordering Facility: [facility] Address: [address] [address] Performed By: #### 5 7021-8 #### [facility] CLIA [id number] [address] [place] [address] 56553 Differential cell count method Nom (Bld) Auto Normal [facility] Comment on above: Order Comment: Speci men Type: BLOOD SPECIMEN Ordering Facility: [facility] Address: [address] [address] Performed By: #### 5 7021-8 #### [facility] CLIA [id number] [address] [place] [address] 30251 Eosinophils (Bld) [#/Vol] 0.10 10*3/uL Normal <0.46 [facility] Comment on above: Order Comment: Speci men Type: BLOOD SPECIMEN Ordering Facility: [facility] Address: [address] [address] Performed By: #### 5 7021-8 #### [facility] CLIA [id number] [address] [place] [address] 24529 Eosinophils/100 WBC (Bld) 2.0 % Normal [facility] Comment on above: Order Comment: Speci men Type: BLOOD SPECIMEN Ordering Facility: [facility] Address: [address] [address] Performed By: #### 5 7021-8 #### [facility] CLIA [id number] [address] [place] [address] 48189 Erythrocyte distribution width (RBC) [Ratio] 13.2 % Normal 11.5-15.0 [facility] Comment on above: Order Comment: Speci men Type: BLOOD SPECIMEN Ordering Facility: [facility] Address: [address] [place] [address] Performed By: #### 5 7021-8 #### [facility] CLIA [id number] [address] [place] [address] 12474 Hematocrit (Bld) [Volume fraction] 33.9 % Low 36.0-46.0 [facility] Comment on above: Order Comment: Speci men Type: BLOOD SPECIMEN Ordering Facility: [facility] Address: [address] [place] [address] Performed By: #### 5 7021-8 #### [facility] CLIA [id number] [address] [place] [address] 82792 Hemoglobin (Bld) [Mass/Vol] 10.9 g/dL Low 11.5-15.5 [facility] Comment on above: Order Comment: Speci men Type: BLOOD SPECIMEN Ordering Facility: [facility] Address: [address] [place] [address] Performed By: #### 5 7021-8 #### [facility] CLIA [id number] [address] [place] [address] 48149 Immature granulocytes (Bld) [#/Vol] 0.04 10*3/uL Normal <0.10 [facility] Comment on above: Order Comment: Speci men Type: BLOOD SPECIMEN Ordering Facility: [facility] Address: [address] [place] [address] Performed By: #### 5 7021-8 #### [facility] CLIA [id number] [address] [place] [address] 18232 Immature granulocytes/100 WBC (Bld) 0.8 % Normal [facility] Comment on above: Order Comment: Speci men Type: BLOOD SPECIMEN Ordering Facility: [facility] Address: [address] [address] Performed By: #### 5 7021-8 #### [facility] CLIA [id number] [address] [place] [address] 75827 Lymphocytes (Bld) [#/Vol] 0.88 10*3/uL Low 1.00-4.00 [facility] Comment on above: Order Comment: Speci men Type: BLOOD SPECIMEN Ordering Facility: [facility] Address: [address] [address] Performed By: #### 5 7021-8 #### [facility] CLIA [id number] [address] [place] [address] 88818 Lymphocytes/100 WBC (Bld) 17.6 % Normal [facility] Comment on above: Order Comment: Speci men Type: BLOOD SPECIMEN Ordering Facility: [facility] Address: [address] [address] Performed By: #### 5 7021-8 #### [facility] CLIA [id number] [address] [place] [address] 94112 MCH (RBC) [Entitic mass] 29.0 pg Normal 26.0-34.0 [facility] Comment on above: Order Comment: Speci men Type: BLOOD SPECIMEN Ordering Facility: [facility] Address: [address] [address] Performed By: #### 5 7021-8 #### [facility] CLIA [id number] [address] [place] [address] 43969 MCHC (RBC) [Mass/Vol] 32.2 g/dL Normal 30.5-36.0 [facility] Comment on above: Order Comment: Speci men Type: BLOOD SPECIMEN Ordering Facility: [facility] Address: [address] [address] Performed By: #### 5 7021-8 #### [facility] CLIA [id number] [address] [place] [address] 71171 MCV (RBC) [Entitic vol] 90.2 fL Normal 80.0-100.0 [facility] Comment on above: Order Comment: Speci men Type: BLOOD SPECIMEN Ordering Facility: [facility] Address: [address] [address] Performed By: #### 5 7021-8 #### [facility] CLIA [id number] [address] [place] [address] 39243 Monocytes (Bld) [#/Vol] 0.56 10*3/uL Normal <0.87 [facility] Comment on above: Order Comment: Speci men Type: BLOOD SPECIMEN Ordering Facility: [facility] Address: [address] [address] Performed By: #### 5 7021-8 #### [facility] CLIA [id number] [address] [place] [address] 56530 Monocytes/100 WBC (Bld) 11.2 % Normal [facility] Comment on above: Order Comment: Speci men Type: BLOOD SPECIMEN Ordering Facility: [facility] Address: [address] [address] Performed By: #### 5 7021-8 #### [facility] CLIA [id number] [address] [place] [address] 52746 Neutrophils (Bld) [#/Vol] 3.39 10*3/uL Normal 1.45-7.50 [facility] Comment on above: Order Comment: Speci men Type: BLOOD SPECIMEN Ordering Facility: [facility] Address: [address] [address] Performed By: #### 5 7021-8 #### [facility] CLIA [id number] [address] [place] [address] 48206 Neutrophils/100 WBC (Bld) 67.6 % Normal [facility] Comment on above: Order Comment: Speci men Type: BLOOD SPECIMEN Ordering Facility: [facility] Address: [address] [address] Performed By: #### 5 7021-8 #### [facility] CLIA [id number] [address] [place] [address] Nucleated RBC (Bld) [#/Vol] 10*3/uL Normal <0.01 [facility] Comment on above: Order Comment: Speci men Type: BLOOD SPECIMEN Ordering Facility: [facility] Address: [address] [place] [address] Performed By: #### 5 7021-8 #### [facility] CLIA [id number] [address] [place] [address] 00055 Nucleated RBC/100 WBC (Bld) [Ratio] 0.0 /100 WBC Normal [facility] Comment on above: Order Comment: Speci men Type: BLOOD SPECIMEN Ordering Facility: [facility] Address: [address] [place] [address] Performed By: #### 5 7021-8 #### [facility] CLIA [id number] [address] [place] [address] 75576 Platelet mean volume (Bld) [Entitic vol] 9.8 fL Normal 9.0-12.7 [facility] Comment on above: Order Comment: Speci men Type: BLOOD SPECIMEN Ordering Facility: [facility] Address: [address] [place] [address] Performed By: #### 5 7021-8 #### [facility] CLIA [id number] [address] [place] [address] 17010 Platelets (Bld) [#/Vol] 278 10*3/uL Normal 150-400 [facility] Comment on above: Order Comment: Speci men Type: BLOOD SPECIMEN Ordering Facility: [facility] Address: [address] [address] Performed By: #### 5 7021-8 #### [facility] CLIA [id number] [address] [place] [address] 11520 RBC (Bld) [#/Vol] 3.76 10*6/uL Low 3.90-5.20 [facility] Comment on above: Order Comment: Speci men Type: BLOOD SPECIMEN Ordering Facility: [facility] Address: [address] [address] Performed By: #### 5 7021-8 #### [facility] CLIA [id number] [address] [place] [address] 16867 WBC (Bld) [#/Vol] 5.01 10*3/uL Normal 3.70-11.00 [facility] Comment on above: Order Comment: Speci men Type: BLOOD SPECIMEN Ordering Facility: [facility] Address: [address] [address] Performed By: #### 5 7021-8 #### [facility] CLIA [id number] [address] [place] [address] 54382 Comprehensive metabolic 2000 panelon 11-27-2022 Albumin [Mass/Vol] 3.9 g/dL Normal 3.9-4.9 [facility] Comment on above: Order Comment: Speci men Type: BLOOD SPECIMEN Ordering Facility: [facility] Address: [address] [address] Performed By: #### 2 4323-8 #### [facility] CLIA [id number] [address] [place] [address] 05797 ALP [Catalytic activity/Vol] 48 U/L Normal 34-123 [facility] Comment on above: Order Comment: Speci men Type: BLOOD SPECIMEN Ordering Facility: [facility] Address: [address] [address] Performed By: #### 2 4323-8 #### [facility] CLIA [id number] [address] [place] [address] 04816 ALT [Catalytic activity/Vol] 10 U/L Normal 7-38 [facility] Comment on above: Order Comment: Speci men Type: BLOOD SPECIMEN Ordering Facility: [facility] Address: [address] [address] Performed By: #### 2 4323-8 #### [facility] CLIA [id number] [address] [place] [address] 88033 Anion gap [Moles/Vol] 8 mmol/L Low 9-18 [facility] Comment on above: Order Comment: Speci men Type: BLOOD SPECIMEN Ordering Facility: [facility] Address: [address] [address] Performed By: #### 2 4323-8 #### [facility] CLIA [id number] [address] [place] [address] 19715 AST [Catalytic activity/Vol] 14 U/L Normal 13-35 [facility] Comment on above: Order Comment: Speci men Type: BLOOD SPECIMEN Ordering Facility: [facility] Address: [address] [place] [address] Performed By: #### 2 4323-8 #### [facility] CLIA [id number] [address] [place] [address] 55255 Bilirubin [Mass/Vol] 0.4 mg/dL Normal 0.2-1.3 [facility] Comment on above: Order Comment: Speci men Type: BLOOD SPECIMEN Ordering Facility: [facility] Address: [address] [address] Performed By: #### 2 4323-8 #### [facility] CLIA [id number] [address] [place] [address] 00969 Calcium [Mass/Vol] 9.1 mg/dL Normal 8.5-10.2 [facility] Comment on above: Order Comment: Speci men Type: BLOOD SPECIMEN Ordering Facility: [facility] Address: [address] [address] Performed By: #### 2 4323-8 #### [facility] CLIA [id number] [address] [place] [address] 98247 Chloride [Moles/Vol] 104 mmol/L Normal 97-105 [facility] Comment on above: Order Comment: Speci men Type: BLOOD SPECIMEN Ordering Facility: [facility] Address: [address] [address] Performed By: #### 2 4323-8 #### [facility] CLIA [id number] [address] [place] [address] CO2 [Moles/Vol] 30 mmol/L Normal 22-30 [facility] Comment on above: Order Comment: Speci men Type: BLOOD SPECIMEN Ordering Facility: [facility] Address: [address] [place] [address] Performed By: #### 2 4323-8 #### [facility] CLIA [id number] [address] [place] [address] 15032 Creatinine [Mass/Vol] 0.97 mg/dL High 0.58-0.96 [facility] Comment on above: Order Comment: Speci men Type: BLOOD SPECIMEN Ordering Facility: [facility] Address: [address] [place] [address] Performed By: #### 2 4323-8 #### [facility] CLIA [id number] [address] [place] [address] 66628 ESTIMATED GLOMERULAR FILTRATION RATE 59 mL/min/1.73m??? Low >=60 [facility] Comment on above: Order Comment: Speci men Type: BLOOD SPECIMEN Ordering Facility: [facility] Address: [address] [place] [address] Result Comment: Shoshana mated Glomerular Filtration Rate [...] GFR. Performed By: #### 2 4323-8 #### [facility] CLIA [id number] [address] [place] [address] 49162 Glucose [Mass/Vol] 101 mg/dL High 74-99 [facility] Comment on above: Order Comment: Speci men Type: BLOOD SPECIMEN Ordering Facility: [facility] Address: [address] [place] [address] Result Comment: The [place] [employer] Association (ADA) provides guidance for cutoff [...] Standards of Medical Care in Diabetes 2016, [place] [employer]. Diabetes Care. 2016.39(Suppl 1). Performed By: #### 2 4323-8 #### [facility] CLIA [id number] [address] [place] [address] 82497 Potassium [Moles/Vol] 4.5 mmol/L Normal 3.7-5.1 [facility] Comment on above: Order Comment: Speci men Type: BLOOD SPECIMEN Ordering Facility: [facility] Address: [address] [address] Performed By: #### 2 4323-8 #### [facility] CLIA [id number] [address] [place] [address] 26936 Protein [Mass/Vol] 6.5 g/dL Normal 6.3-8.0 [facility] Comment on above: Order Comment: Speci men Type: BLOOD SPECIMEN Ordering Facility: [facility] Address: [address] [address] Performed By: #### 2 4323-8 #### [facility] CLIA [id number] [address] [place] [address] 76365 Sodium [Moles/Vol] 142 mmol/L Normal 136-144 [facility] Comment on above: Order Comment: Speci men Type: BLOOD SPECIMEN Ordering Facility: [facility] Address: [address] [address] Performed By: #### 2 4323-8 #### [facility] CLIA [id number] [address] [place] [address] Urea nitrogen [Mass/Vol] 17 mg/dL Normal 7-21 [facility] Comment on above: Order Comment: Speci men Type: BLOOD SPECIMEN Ordering Facility: [facility] Address: [address] [place] [address] Performed By: #### 2 4323-8 #### [facility] CLIA [id number] [address] [place] [address] 72611 IMMUNOFIXATION SCREEN, SERUM on 11-27-2022 MPA RESULT No M protein is identified. Normal No M protein is identified. [facility] Comment on above: Order Comment: Speci men Type: BLOOD SPECIMEN Ordering Facility: [facility] Address: [address] [place] [address] Performed By: #### 5 7021-8 #### [facility] CLIA [id number] [address] [place] [address] 56224 STAFF REVIEW ([facility]) Reviewed by Taqueria Beck MD, Ph.D ([id number]) Normal [facility] Comment on above: Order Comment: Speci men Type: BLOOD SPECIMEN Ordering Facility: [facility] Address: [address] [place] [address] Performed By: #### 5 7021-8 #### [facility] CLIA [id number] [address] [place] [address] 39227 IMMUNOGLOBULINS GAMon 2022 IgA [Mass/Vol] 78 mg/dL Normal 70-400 [facility] Comment on above: Order Comment: Speci men Type: BLOOD SPECIMEN Ordering Facility: [facility] Address: [address] [place] [address] Performed By: #### 2 4323-8 #### [facility] CLIA [id number] [address] [place] [address] 36310 IgG [Mass/Vol] 683 mg/dL Low 700-1600 [facility] Comment on above: Order Comment: Speci men Type: BLOOD SPECIMEN Ordering Facility: [facility] Address: [address] [place] [address] Performed By: #### 2 4323-8 #### [facility] CLIA [id number] [address] [place] [address] 52055 IgM [Mass/Vol] 300 mg/dL High 40-230 [facility] Comment on above: Order Comment: Speci men Type: BLOOD SPECIMEN Ordering Facility: [facility] Address: [address] [place] [address] Performed By: #### 2 4323-8 #### [facility] CLIA [id number] [address] [place] [address] 97867 KAPPA/BOWLES,FREE,SERon 2022 Immunoglobulin light chains.kappa.free (S) [Mass/Vol] 82.2 mg/L High 3.3-19.4 [facility] Comment on above: Order Comment: Speci men Type: BLOOD SPECIMEN Ordering Facility: [facility] Address: [address] [place] [address] Result Comment: Rare ly, increased serum free light chains levels may not be detected or accurately quantified due to prozone phenomenon or in high viscosity samples using this immunoturbidimetric assay. Correlation with other laboratory results and clinical findings is recommended. The [employer] Free Light Chain was performed using the Binding Site Optilite immunoturbidimetric method. Result obtained with different assay methods or kits cannot be used interchangeably. Performed By: #### 2 4323-8 #### [facility] CLIA [id number] [address] [place] [address] 73843 Immunoglobulin light chains.kappa/Immunogl obulin light chains.lambda (S) [Mass ratio] 4.11 High 0.26-1.65 [facility] Comment on above: Order Comment: Speci men Type: BLOOD SPECIMEN Ordering Facility: [facility] Address: [address] [place] [address] Performed By: #### 2 4323-8 #### [facility] CLIA [id number] [address] [place] [address] 77875 Immunoglobulin light chains.lambda.free [Mass/Vol] 20.0 mg/L Normal 5.7-26.3 [facility] Comment on above: Order Comment: Speci men Type: BLOOD SPECIMEN Ordering Facility: [facility] Address: [address] [address] Result Comment: Rare ly, increased serum free [...] interchangeably. Performed By: #### 2 4323-8 #### [facility] CLIA [id number] [address] [place] [address] 65392 PROTEIN ELECTROPHORESIS SERU M WITH BRANDON (P)on 11-27-2022 Albumin [Mass/Vol] 3.54 g/dL Normal 3.43-5.41 [facility] Comment on above: Order Comment: Speci men Type: BLOOD SPECIMEN Ordering Facility: [facility] Address: [address] [address] Performed By: #### 2 4323-8 #### [facility] CLIA [id number] [address] [place] [address] 36555 Alpha 1 globulin Elph [Mass/Vol] 0.36 g/dL Normal 0.18-0.43 [facility] Comment on above: Order Comment: Speci men Type: BLOOD SPECIMEN Ordering Facility: [facility] Address: [address] [address] Performed By: #### 2 4323-8 #### [facility] CLIA [id number] [address] [place] [address] 85559 Alpha 2 globulin Elph [Mass/Vol] 0.75 g/dL Normal 0.42-0.98 [facility] Comment on above: Order Comment: Speci men Type: BLOOD SPECIMEN Ordering Facility: [facility] Address: [address] [address] Performed By: #### 2 4323-8 #### [facility] CLIA [id number] [address] [place] [address] 53787 Beta globulin Elph [Mass/Vol] 0.59 g/dL Low 0.61-1.17 [facility] Comment on above: Order Comment: Speci men Type: BLOOD SPECIMEN Ordering Facility: [facility] Address: [address] [place] [address] Performed By: #### 2 4323-8 #### [facility] CLIA [id number] [address] [place] [address] 93129 COMMENT (SERUM PROT ELECTRO) Monoclonal Protein analysis (immunofixation) is not indicated. Normal [facility] Comment on above: Order Comment: Speci men Type: BLOOD SPECIMEN Ordering Facility: [facility] Address: [address] [place] [address] Performed By: #### 2 4323-8 #### [facility] CLIA [id number] [address] [place] [address] 84322 Gamma globulin Elph [Mass/Vol] 0.76 g/dL Normal 0.53-1.51 [facility] Comment on above: Order Comment: Speci men Type: BLOOD SPECIMEN Ordering Facility: [facility] Address: [address] [place] [address] Performed By: #### 2 4323-8 #### [facility] CLIA [id number] [address] [place] [address] 47739 M-PROTEIN LOCATION Normal [facility] Comment on above: Order Comment: Speci men Type: BLOOD SPECIMEN Ordering Facility: [facility] Address: [address] [place] [address] Result Comment: Not Applicable. Performed By: #### 2 4323-8 #### [facility] CLIA [id number] [address] [place] [address] 71941 Protein Fractions [Interp] No definitive M protein is identified on protein electrophoresis. Normal No definitive M protein is identified on protein electrophor esis. [facility] Comment on above: Order Comment: Speci men Type: BLOOD SPECIMEN Ordering Facility: [facility] Address: [address] [place] [address] Performed By: #### 2 4323-8 #### [facility] CLIA [id number] [address] [place] [address] 44981 Protein.monoclonal Elph [Mass/Vol] 0.00 g/dL Normal <=0.00 [facility] Comment on above: Order Comment: Speci men Type: BLOOD SPECIMEN Ordering Facility: [facility] Address: [address] [place] [address] Performed By: #### 2 4323-8 #### [facility] CLIA [id number] [address] [place] [address] 78837 SPE STAFF REVIEW Reviewed by Milka Bahena MD [facility] Comment on above: Order Comment: Speci men Type: BLOOD SPECIMEN Ordering Facility: [facility] Address: [address] [place] [address] Performed By: #### 2 4323-8 #### [facility] CLIA [id number] [address] [place], [place] [id number] Prot SerPl-mCncon 11-27-2022 Protein [Mass/Vol] 6.0 g/dL Low 6.3-8.0 [facility] Comment on above: Order Comment: Speci men Type: BLOOD SPECIMEN Ordering Facility: [facility] Address: [address] [place] [address] Performed By: #### 2 4323-8 #### [facility] CLIA [id number] [address] [place] [address] HEAD_NECKon 09-11-[address] HEAD_NECK [...] by: WILLIAM DOMINGUEZ Date: 2022-09-11 17:07 Normal [facility] CT Abdomen and Pelvis W kacey Tineo 08-28-2022 IMPRESSION: 1. Stable CT of the [...] any questions regarding this interpretation, please call [phone]. If you are unable to reach us at the number above, please feel free to contact [facility] at [phone]. DIVISION OF RADIOLOGY * * *Final Report* * * DATE OF EXAM: Aug 28 2022 1:36PM [facility] 0530 - CT ABD/PEL W IVCON / [...] chest CT performed will be reported separately. Precipitator (topogram) images: No additional findings. DIVISION OF RADIOLOGY Provider, [facility] - 08/28/2022 * * *Final Report* * * DATE OF EXAM: Aug 28 2022 1:36PM [facility] 0530 - CT ABD/PEL W IVCON / [...] chest CT performed will be reported separately. Precipitator (topogram) images: No additional findings. IMPRESSION IMPRESSION: [...] any questions regarding this interpretation, please call [phone]. If you are unable to reach us at the number above, please feel free to contact [facility] at [phone]. [facility] CT Abdomen and Pelvis W cont rast IVOrdered By: [facility] Provider on 08-28-20[address] [facility] [address] Chest W contrast Rivka IMPRESSION: 1. [...] any questions regarding this interpretation, please call [phone]. If you are unable to reach us at the number above, please feel free to contact [facility] at [phone]. DIVISION OF RADIOLOGY * * *Final Report* * * DATE OF EXAM: Aug 28 2022 1:36PM [facility] 0539 - CT CHEST W IVCON / [...] was performed concurrently and is reported separately. Precipitator (topogram) images: No additional findings. DIVISION OF RADIOLOGY Provider, [facility] - 08/28/2022 * * *Final Report* * * DATE OF EXAM: Aug 28 2022 1:36PM [facility] 0539 - CT CHEST W IVCON / [...] was performed concurrently and is reported separately. Precipitator (topogram) images: No additional findings. IMPRESSION IMPRESSION: [...] any questions regarding this interpretation, please call [phone]. If you are unable to reach us at the number above, please feel free to contact [facility] at [phone]. [facility] No Panel Informationon 08-28 Radiology Study observation (narrative) [facility] Covid-19 PCR (CVDTBH)on SARS-CoV-2 (COVID-19) RNA ZABRINA+probe Ql (Unsp spec) Detected Critically abnormal NOT DETECTED [facility] Comment on above: Result Comment: This test is not yet approved or cleared by the [place] FDA. When there are no FDA-approved or cleared tests available, and other criteria are met, FDA can make tests available under an emergency access mechanism called an Emergency Use Authorization (EUA). The EUA for this test is supported by the [place] of Health and Human Service's (HHS's) declaration [...] longer be used). Performed By: #### [facility] #### [facility] [address] [place] [address] Dr. Jose David Shanks Vital Signs Date Time Vital Sign Value Performing Clinician Facility 06-19-2025 09:31-0400 Body height 166.37 cm Nathan Ball DO Work Phone: [facility] 06-19-2025 09:31-0400 Body mass index (BMI) [Ratio] 32.4 kg/m2 Nathan Ball DO Work Phone: [facility] 06-19-2025 09:31-0400 Body weight 89.81 kg Nathan Ball DO Work Phone: [facility] 06-19-2025 09:31-0400 Diastolic blood pressure 70 mm[Hg] Nathan Ball DO Work Phone: [facility] 06-19-2025 09:31-0400 Heart rate 62 /min Nathan Ball DO Work Phone: [facility] 06-19-2025 09:31-0400 Respiratory rate 14 /min Nathan Ball DO Work Phone: [facility] 06-19-2025 09:31-0400 SaO2% (BldA) [Mass fraction] 96 % Nathan Ball DO Work Phone: [facility] 06-19-2025 09:31-0400 Systolic blood pressure 146 mm[Hg] Nathan Ball DO Work Phone: [facility] 05-19-2025 15:33-0400 Body height 166.37 cm Nathan Ball DO Work Phone: [facility] 05-19-2025 15:33-0400 Body mass index (BMI) [Ratio] 31.8 kg/m2 Nathan Ball DO Work Phone: [facility] 05-19-2025 15:33-0400 Body weight 88.13 kg Nathan Ball DO Work Phone: [facility] 05-19-2025 15:33-0400 Diastolic blood pressure 74 mm[Hg] Nathan Ball DO Work Phone: [facility] 05-19-2025 15:33-0400 Heart rate 67 /min Nathan Ball DO Work Phone: [facility] 05-19-2025 15:33-0400 Respiratory rate 14 /min Nathan Ball DO Work Phone: [facility] 05-19-2025 15:33-0400 SaO2% (BldA) [Mass fraction] 96 % Nathan Ball DO Work Phone: [facility] 05-19-2025 15:33-0400 Systolic blood pressure 148 mm[Hg] Nathan Ball DO Work Phone: [facility] 03-19-2025 11:22-0400 Body height 166.37 cm Nathan Ball DO Work Phone: [facility] 03-19-2025 11:22-0400 Body mass index (BMI) [Ratio] 31.6 kg/m2 Nathan Ball DO Work Phone: [facility] 03-19-2025 11:22-0400 Body weight 87.54 kg Nathan Ball DO Work Phone: [facility] 03-19-2025 11:22-0400 Diastolic blood pressure 89 mm[Hg] Nathan Ball DO Work Phone: [facility] 03-19-2025 11:22-0400 Heart rate 66 /min Nathan Ball DO Work Phone: [facility] 03-19-2025 11:22-0400 Respiratory rate 12 /min Nathan Ball DO Work Phone: [facility] 03-19-2025 11:22-0400 SaO2% (BldA) [Mass fraction] 97 % Nathan Ball DO Work Phone: [facility] 03-19-2025 11:22-0400 Systolic blood pressure 139 mm[Hg] Nathan Ball DO Work Phone: [facility] 03-17-2025 10:42-0400 Body height 165.[address] 03-17-2025 10:42-0400 Body mass index (BMI) [Ratio] 33.28 kg/m2 [address] 03-17-2025 10:42-0400 Body weight 90.[address] 03-17-2025 10:42-0400 Diastolic blood pressure 60 mm[Hg] [address] 03-17-2025 10:42-0400 Systolic blood pressure 120 mm[Hg] [address] 03-13-2025 13:25-0400 Body height 166.37 cm Nathan Ball DO Work Phone: [facility] 03-13-2025 13:25-0400 Body mass index (BMI) [Ratio] 33 kg/m2 Nathan Ball DO Work Phone: [facility] 03-13-2025 13:25-0400 Body weight 91.28 kg Nathan Ball DO Work Phone: [facility] 03-13-2025 13:25-0400 Diastolic blood pressure 68 mm[Hg] Nathan Ball DO Work Phone: [facility] 03-13-2025 13:25-0400 Heart rate 90 /min Nathan Ball DO Work Phone: [facility] 03-13-2025 13:25-0400 Respiratory rate 12 /min Nathan Ball DO Work Phone: [facility] 03-13-2025 13:25-0400 Systolic blood pressure 148 mm[Hg] Nathan Ball DO Work Phone: [facility] 02-25-2025 08:46-0400 Body height 165.1 cm Reyna Esparza MD Work Phone: [facility] 02-25-2025 08:46-0400 Body mass index (BMI) [Ratio] 32.45 kg/m2 Reyna Esparza MD Work Phone: [facility] 02-25-2025 08:46-0400 Body weight 88.45 kg Reyna Esparza MD Work Phone: [facility] 02-25-2025 08:46-0400 Diastolic blood pressure 59 mm[Hg] Reyna Esparza MD Work Phone: [facility] 02-25-2025 08:46-0400 Heart rate 72 /min Reyna Esparza MD Work Phone: [facility] 02-25-2025 08:46-0400 Systolic blood pressure 118 mm[Hg] Reyna Esparza MD Work Phone: [facility] 02-12-2025 10:20-0400 Diastolic blood pressure 70 mm[Hg] Nathan Ball DO Work Phone: [facility] 02-12-2025 10:20-0400 Heart rate 56 /min Nathan Ball DO Work Phone: [facility] 02-12-2025 10:20-0400 Respiratory rate 18 /min Nathan Ball DO Work Phone: [facility] 02-12-2025 10:20-0400 SaO2% (BldA) [Mass fraction] 97 % Nathan Ball DO Work Phone: [facility] 02-12-2025 10:20-0400 Systolic blood pressure 190 mm[Hg] Nathan Ball DO Work Phone: [facility] 02-12-2025 06:29-0400 Body height 165.1 cm Nathan Ball DO Work Phone: [facility] 02-12-2025 06:29-0400 Body temperature 98.3 [degF] Nathan Ball DO Work Phone: [facility] 02-12-2025 06:29-0400 Body weight 90.9 kg Nathan Ball DO Work Phone: [facility] 01-22-2025 10:20-0400 Body height 166.37 cm Nathan Ball DO Work Phone: [facility] 01-22-2025 10:20-0400 Body mass index (BMI) [Ratio] 31.9 kg/m2 Nathan Ball DO Work Phone: [facility] 01-22-2025 10:20-0400 Body weight 88.45 kg Nathan Ball DO Work Phone: [facility] 01-22-2025 10:20-0400 Diastolic blood pressure 64 mm[Hg] Nathan Ball DO Work Phone: [facility] 01-22-2025 10:20-0400 Heart rate 65 /min Nathan Ball DO Work Phone: [facility] 01-22-2025 10:20-0400 Respiratory rate 12 /min Nathan Ball DO Work Phone: [facility] 01-22-2025 10:20-0400 Systolic blood pressure 215 mm[Hg] Nathan Ball DO Work Phone: [facility] 01-12-2025 11:10-0400 Body height 165.1 cm Holden Rosado GEOPHYSICAL OBSERVER-DOCTOR OF DENTAL MEDICINE Work Phone: [facility] 01-12-2025 11:10-0400 Body mass index (BMI) [Ratio] 33.28 kg/m2 Holden Rosado GEOPHYSICAL OBSERVER-DOCTOR OF DENTAL MEDICINE Work Phone: [facility] 01-12-2025 11:10-0400 Body weight 90.72 kg Holden Rosado GEOPHYSICAL OBSERVER-DOCTOR OF DENTAL MEDICINE Work Phone: [facility] 01-12-2025 11:10-0400 Diastolic blood pressure 60 mm[Hg] Holden Rosado GEOPHYSICAL OBSERVER-DOCTOR OF DENTAL MEDICINE Work Phone: [facility] 01-12-2025 11:10-0400 Heart rate 60 /min Holden Rosado GEOPHYSICAL OBSERVER-DOCTOR OF DENTAL MEDICINE Work Phone: [facility] 01-12-2025 11:10-0400 Systolic blood pressure 124 mm[Hg] Holden Rosado GEOPHYSICAL OBSERVER-DOCTOR OF DENTAL MEDICINE Work Phone: [facility] 12-16-2024 10:50-0500 Body height 166.37 cm Nathan Ball DO Work Phone: [facility] 12-16-2024 10:50-0500 Body mass index (BMI) [Ratio] 32 kg/m2 Nathan Ball DO Work Phone: [facility] 12-16-2024 10:50-0500 Body weight 88.59 kg Nathan Ball DO Work Phone: [facility] 12-16-2024 10:50-0500 Diastolic blood pressure 67 mm[Hg] Nathan Ball DO Work Phone: [facility] 12-16-2024 10:50-0500 Heart rate 56 /min Nathan Ball DO Work Phone: [facility] 12-16-2024 10:50-0500 SaO2% (BldA) [Mass fraction] 97 % Nathan Ball DO Work Phone: [facility] 12-16-2024 10:50-0500 Systolic blood pressure 136 mm[Hg] Nathan Ball DO Work Phone: [facility] 11-25-2024 13:55-0500 Body height 165.1 cm Reyna Esparza MD Work Phone: [facility] 11-25-2024 13:55-0500 Body mass index (BMI) [Ratio] 32.28 kg/m2 Reyna Esparza MD Work Phone: [facility] 11-25-2024 13:55-0500 Body weight 88 kg Reyna Esparza MD Work Phone: [facility] 11-25-2024 13:55-0500 Diastolic blood pressure 64 mm[Hg] Reyna Esparza MD Work Phone: [facility] 11-25-2024 13:55-0500 Heart rate 60 /min Reyna Esparza MD Work Phone: [facility] 11-25-2024 13:55-0500 Systolic blood pressure 141 mm[Hg] Reyna Esparza MD Work Phone: [facility] 11-17-2024 13:05-0500 Diastolic blood pressure 59 mm[Hg] Nathan Ball DO Work Phone: [facility] 11-17-2024 13:05-0500 Heart rate 68 /min Nathan Ball DO Work Phone: [facility] 11-17-2024 13:05-0500 Respiratory rate 16 /min Nathan Ball DO Work Phone: [facility] 11-17-2024 13:05-0500 SaO2% (BldA) [Mass fraction] 94 % Nathan Ball DO Work Phone: [facility] 11-17-2024 13:05-0500 Systolic blood pressure 163 mm[Hg] Nathan Ball DO Work Phone: [facility] 11-17-2024 10:05-0500 Body height 166.37 cm Nathan Ball DO Work Phone: [facility] 11-17-2024 10:05-0500 Body weight 89.35 kg Nathan Ball DO Work Phone: [facility] 10-08-2024 10:40-0500 Body height 165.1 cm Edinson Perry DO Work Phone: [facility] 10-08-2024 10:40-0500 Body mass index (BMI) [Ratio] 33.12 kg/m2 Edinson Perry DO Work Phone: [facility] 10-08-2024 10:40-0500 Body weight 90.27 kg Edinson Perry DO Work Phone: [facility] 10-08-2024 10:40-0500 Diastolic blood pressure 60 mm[Hg] Edinson Perry DO Work Phone: [facility] 10-08-2024 10:40-0500 Heart rate 78 /min Edinson Perry DO Work Phone: [facility] 10-08-2024 10:40-0500 Systolic blood pressure 124 mm[Hg] Edinson Perry DO Work Phone: [facility] 09-11-2024 10:19-0500 Body height 165.1 cm [facility] 09-11-2024 10:19-0500 Body mass index (BMI) [Ratio] 32.3 kg/m2 [facility] 09-11-2024 10:19-0500 Body weight 88.13 kg [facility] 09-11-2024 10:19-0500 Diastolic blood pressure 54 mm[Hg] [facility] 09-11-2024 10:19-0500 Heart rate 63 /min [facility] 09-11-2024 10:19-0500 SaO2% (BldA) [Mass fraction] 97 % [facility] 09-11-2024 10:19-0500 Systolic blood pressure 118 mm[Hg] [facility] 06-03-2024 10:54-0400 Body height 165.1 cm DO Nathan Ball Work Phone: [facility] 06-03-2024 10:54-0400 Body mass index (BMI) [Ratio] 26.8 kg/m2 DO Nathan Ball Work Phone: [facility] 06-03-2024 10:54-0400 Body weight 73.02 kg DO Nathan Ball Work Phone: [facility] 06-03-2024 10:54-0400 Diastolic blood pressure 89 mm[Hg] DO Nathan Ball Work Phone: [facility] 06-03-2024 10:54-0400 Heart rate 56 /min DO Nathan Ball Work Phone: [facility] 06-03-2024 10:54-0400 Respiratory rate 12 /min DO Nathan Ball Work Phone: [facility] 06-03-2024 10:54-0400 Systolic blood pressure 139 mm[Hg] DO Nathan Ball Work Phone: [facility] 04-21-2024 10:21-0400 Body mass index (BMI) [Ratio] 32.98 kg/m2 Holden Rosado GEOPHYSICAL OBSERVER-DOCTOR OF DENTAL MEDICINE Work Phone: [facility] 04-21-2024 10:21-0400 Body weight 89.9 kg Holden Rosado GEOPHYSICAL OBSERVER-DOCTOR OF DENTAL MEDICINE Work Phone: [facility] 04-21-2024 10:21-0400 Diastolic blood pressure 70 mm[Hg] Holden Rosado GEOPHYSICAL OBSERVER-DOCTOR OF DENTAL MEDICINE Work Phone: [facility] 04-21-2024 10:21-0400 Heart rate 60 /min Holden Rosado GEOPHYSICAL OBSERVER-DOCTOR OF DENTAL MEDICINE Work Phone: [facility] 04-21-2024 10:21-0400 Systolic blood pressure 132 mm[Hg] Holden Rosado GEOPHYSICAL OBSERVER-DOCTOR OF DENTAL MEDICINE Work Phone: [facility] 03-12-2024 09:27-0400 Diastolic blood pressure 66 mm[Hg] [address] 03-12-2024 09:27-0400 Heart rate 62 /min [address] 03-12-2024 09:27-0400 Systolic blood pressure 114 mm[Hg] [address] 03-05-2024 11:46-0400 Body height 165.1 cm Holden Rosado GEOPHYSICAL OBSERVER-DOCTOR OF DENTAL MEDICINE Work Phone: [facility] 03-05-2024 11:46-0400 Body mass index (BMI) [Ratio] 32.62 kg/m2 Holden Rosado GEOPHYSICAL OBSERVER-DOCTOR OF DENTAL MEDICINE Work Phone: [facility] 03-05-2024 11:46-0400 Body weight 88.91 kg Holden Rosado GEOPHYSICAL OBSERVER-DOCTOR OF DENTAL MEDICINE Work Phone: [facility] 03-05-2024 11:46-0400 Diastolic blood pressure 68 mm[Hg] Holden Rosado GEOPHYSICAL OBSERVER-DOCTOR OF DENTAL MEDICINE Work Phone: [facility] 03-05-2024 11:46-0400 Heart rate 62 /min Holden Rosado GEOPHYSICAL OBSERVER-DOCTOR OF DENTAL MEDICINE Work Phone: [facility] 03-05-2024 11:46-0400 Systolic blood pressure 120 mm[Hg] Holden Rosado GEOPHYSICAL OBSERVER-DOCTOR OF DENTAL MEDICINE Work Phone: [facility] 02-27-2024 09:53-0400 Body height 165.1 cm DO Nathan Ball Work Phone: [facility] 02-27-2024 09:53-0400 Body mass index (BMI) [Ratio] 31.9 kg/m2 DO Nathan Ball Work Phone: [facility] 02-27-2024 09:53-0400 Body weight 87.08 kg DO Nathan Ball Work Phone: [facility] 02-27-2024 09:53-0400 Diastolic blood pressure 72 mm[Hg] DO Nathan Ball Work Phone: [facility] 02-27-2024 09:53-0400 Heart rate 62 /min DO Nathan Ball Work Phone: [facility] 02-27-2024 09:53-0400 SaO2% (BldA) [Mass fraction] 97 % DO Nathan Ball Work Phone: [facility] 02-27-2024 09:53-0400 Systolic blood pressure 132 mm[Hg] DO Nathan Ball Work Phone: [facility] 02-13-2024 10:30-0400 Body height 165.1 cm [facility] 02-13-2024 10:30-0400 Body mass index (BMI) [Ratio] 32.8 kg/m2 [facility] 02-13-2024 10:30-0400 Body weight 89.35 kg [facility] 02-13-2024 10:30-0400 Diastolic blood pressure 60 mm[Hg] [facility] 02-13-2024 10:30-0400 Heart rate 56 /min [facility] 02-13-2024 10:30-0400 SaO2% (BldA) [Mass fraction] 98 % [facility] 02-13-2024 10:30-0400 Systolic blood pressure 128 mm[Hg] [facility] 02-01-2024 11:01-0400 Body height 165.1 cm [facility] 02-01-2024 11:01-0400 Body mass index (BMI) [Ratio] 27.3 kg/m2 [facility] 02-01-2024 11:01-0400 Body weight 74.44 kg [facility] 02-01-2024 11:01-0400 Diastolic blood pressure 72 mm[Hg] [facility] 02-01-2024 11:01-0400 Heart rate 49 /min [facility] 02-01-2024 11:01-0400 Respiratory rate 12 /min [facility] 02-01-2024 11:01-0400 Systolic blood pressure 131 mm[Hg] [facility] 11-02-2023 11:00-0500 Body height 165.1 cm Nathan Ball Other [facility] [employer] Other 11-02-2023 11:00-0500 Body mass index (BMI) [Ratio] 31.78 kg/m2 Nathan Ball Other [facility] [employer] Other 11-02-2023 11:00-0500 Body weight 86.64 kg Nathan Ball Other [facility] [employer] Other 11-02-2023 11:00-0500 Diastolic blood pressure 80 mm[Hg] Nathan Ball Other [facility] [employer] Other 11-02-2023 11:00-0500 Respiratory rate 16 /min Nathan Ball Other [facility] [employer] Other 11-02-2023 11:00-0500 Systolic blood pressure 130 mm[Hg] Nathan Ball Other [facility] [employer] Other 10-02-2023 09:45-0500 Body height 165.1 cm Nathan Ball Other [employer] Other 10-02-2023 09:45-0500 Body mass index (BMI) [Ratio] 31.61 kg/m2 Nathan Ball Other [facility] Other 10-02-2023 09:45-0500 Body weight 86.18 kg Nathan Ball Other [employer] Other 10-02-2023 09:45-0500 Diastolic blood pressure 74 mm[Hg] Nathan Ball Other [facility] Other 10-02-2023 09:45-0500 Respiratory rate 12 /min Nathan Ball Other [facility] [employer] Other 10-02-2023 09:45-0500 Systolic blood pressure 144 mm[Hg] Nathan Ball Other [facility] Other 06-08-2023 11:15-0400 Body height 165.1 cm Nathan Ball Other [facility] Other 06-08-2023 11:15-0400 Body mass index (BMI) [Ratio] 32.95 kg/m2 Nathan Ball Other [employer] Other 06-08-2023 11:15-0400 Body weight 89.81 kg Nathan Ball Other [facility] Other 06-08-2023 11:15-0400 Diastolic blood pressure 62 mm[Hg] Nathan Ball Other [facility] Other 06-08-2023 11:15-0400 Respiratory rate 12 /min Nathan Ball Other [facility] Other 06-08-2023 11:15-0400 Systolic blood pressure 138 mm[Hg] Nathan Ball Other [facility] Other 06-04-2023 13:51-0400 Body temperature 97.7 [degF] Luis Mckenzie MD Work Phone: [facility] 06-04-2023 13:51-0400 Body weight 91.99 kg Luis Mckenzie MD Work Phone: [facility] 06-04-2023 13:51-0400 Diastolic blood pressure 58 mm[Hg] Luis Mckenzie MD Work Phone: [facility] 06-04-2023 13:51-0400 Heart rate 56 /min Luis Mckenzie MD Work Phone: [facility] 06-04-2023 13:51-0400 Respiratory rate 18 /min Luis Mckenzie MD Work Phone: [facility] 06-04-2023 13:51-0400 SaO2% (BldA) [Mass fraction] 98 % Luis Mckenzie MD Work Phone: [facility] 06-04-2023 13:51-0400 Systolic blood pressure 155 mm[Hg] Luis Mckenzie MD Work Phone: [facility] 05-25-2023 11:15-0400 Body height 165.1 cm Nathan Ball Other [employer] Other 05-25-2023 11:15-0400 Body mass index (BMI) [Ratio] 32.86 kg/m2 Nathan Ball Other [facility] Other 05-25-2023 11:15-0400 Body weight 89.59 kg Nathan Ball Other [facility] [employer] Other 05-25-2023 11:15-0400 Diastolic blood pressure 68 mm[Hg] Nathan Ball Other [facility] Other 05-25-2023 11:15-0400 Respiratory rate 16 /min Nathan Ball Other [facility] [employer] Other 05-25-2023 11:15-0400 Systolic blood pressure 142 mm[Hg] Nathan Ball Other [facility] [employer] Other 05-18-2023 15:30-0400 Body temperature 97.7 [degF] DO Nathan Ball Work Phone: [facility] 05-18-2023 15:30-0400 Diastolic blood pressure 71 mm[Hg] DO Nathan Ball Work Phone: [facility] 05-18-2023 15:30-0400 Heart rate 62 /min DO Nathan Ball Work Phone: [facility] 05-18-2023 15:30-0400 Respiratory rate 16 /min DO Nathan Ball Work Phone: [facility] 05-18-2023 15:30-0400 SaO2% (BldA) [Mass fraction] 95 % DO Nathan Ball Work Phone: [facility] 05-18-2023 15:30-0400 Systolic blood pressure 145 mm[Hg] DO Nathan Ball Work Phone: [facility] 05-18-2023 05:39-0400 Body weight 88.1 kg DO Nathan Ball Work Phone: [facility] 05-17-2023 20:00-0400 Inhaled oxygen flow rate 1.5 L/min DO Nathan Ball Work Phone: [facility] 05-17-2023 15:54-0400 Body height 172.72 cm DO Nathan Ball Work Phone: [facility] 05-16-2023 11:30-0400 Body height 165.1 cm Nathan Ball Other [facility] [employer] Other 05-16-2023 11:30-0400 Body mass index (BMI) [Ratio] 33.28 kg/m2 Nathan Ball Other [employer] Other 05-16-2023 11:30-0400 Body weight 90.72 kg Nathan Ball Other [employer] Other 05-16-2023 11:30-0400 Diastolic blood pressure 69 mm[Hg] Nathan Ball Other [facility] Other 05-16-2023 11:30-0400 Respiratory rate 16 /min Nathan Ball Other [facility] Other 05-16-2023 11:30-0400 Systolic blood pressure 192 mm[Hg] Nathan Ball Other [employer] [employer] Other 05-09-2023 11:15-0400 Body height 165.1 cm Nathan Ball Other [employer] Other 05-09-2023 11:15-0400 Body mass index (BMI) [Ratio] 32.75 kg/m2 Nathan Ball Other [facility] Other 05-09-2023 11:15-0400 Body weight 89.27 kg Nathan Ball Other [facility] Other 05-09-2023 11:15-0400 Diastolic blood pressure 62 mm[Hg] Nathan Ball Other [facility] [employer] Other 05-09-2023 11:15-0400 Respiratory rate 16 /min Nathan Ball Other [facility] Other 05-09-2023 11:15-0400 SaO2% (BldA) [Mass fraction] 98 % Nathan Ball Other [facility] Other 05-09-2023 11:15-0400 Systolic blood pressure 189 mm[Hg] Nathan Ball Other [facility] Other 04-26-2023 11:30-0400 Body height 165.1 cm Nathan Ball Other [facility] Other 04-26-2023 11:30-0400 Body mass index (BMI) [Ratio] 32.53 kg/m2 Nathan Ball Other [facility] Other 04-26-2023 11:30-0400 Body weight 88.68 kg Nathan Ball Other [facility] Other 04-26-2023 11:30-0400 Diastolic blood pressure 80 mm[Hg] Nathan Ball Other [facility] Other 04-26-2023 11:30-0400 Respiratory rate 16 /min Nathan Ball Other [facility] Other 04-26-2023 11:30-0400 Systolic blood pressure 136 mm[Hg] Nathan Ball Other [facility] Other 04-18-2023 09:45-0400 Body height 165.1 cm Nathan Ball Other [facility] Other 04-18-2023 09:45-0400 Body mass index (BMI) [Ratio] 33.28 kg/m2 Nathan Ball Other [facility] Other 04-18-2023 09:45-0400 Body weight 90.72 kg Nathan Ball Other [facility] Other 04-18-2023 09:45-0400 Diastolic blood pressure 76 mm[Hg] Nathan Ball Other [facility] Other 04-18-2023 09:45-0400 Respiratory rate 20 /min Nathan Ball Other [facility] Other 04-18-2023 09:45-0400 SaO2% (BldA) [Mass fraction] 98 % Nathan Ball Other [facility] Other 04-18-2023 09:45-0400 Systolic blood pressure 132 mm[Hg] Nathan Ball Other [facility] Other 03-15-2023 10:45-0400 Body height 165.1 cm Nathan Ball Other [facility] Other 03-15-2023 10:45-0400 Body mass index (BMI) [Ratio] 31.95 kg/m2 Nathan Ball Other [facility] Other 03-15-2023 10:45-0400 Body weight 87.09 kg Nathan Ball Other [facility] Other 03-15-2023 10:45-0400 Diastolic blood pressure 77 mm[Hg] Nathan Ball Other [facility] Other 03-15-2023 10:45-0400 Respiratory rate 16 /min Nathan Ball Other [facility] Other 03-15-2023 10:45-0400 Systolic blood pressure 151 mm[Hg] Nathan Ball Other [facility] Other 03-09-2023 17:00-0400 Body temperature 97.9 [degF] DO Nathan Ball Work Phone: [facility] 03-09-2023 17:00-0400 Diastolic blood pressure 72 mm[Hg] DO Nathan Ball Work Phone: [facility] 03-09-2023 17:00-0400 Heart rate 54 /min DO Nathan Ball Work Phone: [facility] 03-09-2023 17:00-0400 Respiratory rate 16 /min DO Nathan Ball Work Phone: [facility] 03-09-2023 17:00-0400 SaO2% (BldA) [Mass fraction] 96 % DO Nathan Ball Work Phone: [facility] 03-09-2023 17:00-0400 Systolic blood pressure 140 mm[Hg] DO Nathan Ball Work Phone: [facility] 03-09-2023 08:11-0400 Body height 165.1 cm DO Nathan Ball Work Phone: [facility] 03-09-2023 08:11-0400 Body weight 90 kg DO Nathan Ball Work Phone: [facility] 03-07-2023 10:14-0400 Diastolic blood pressure 70 mm[Hg] Nathan E Ball Work Phone: [facility] [employer] [address] DO Work Phone: 03-07-2023 10:14-0400 Systolic blood pressure 138 mm[Hg] Nathan E Ball Work Phone: [facility] [employer] [address] DO Work Phone: 03-07-2023 10:04-0400 Body height 165.1 cm Nathan E Ball Work Phone: [facility] [employer] [address] DO Work Phone: 03-07-2023 10:04-0400 Body mass index (BMI) [Ratio] 33.95 kg/m2 Nathan E Ball Work Phone: [facility] [employer] [address] DO Work Phone: 03-07-2023 10:04-0400 Body surface area Derived from formula 1.99 m2 Nathan E Ball Work Phone: [facility] [address] DO Work Phone: 03-07-2023 10:04-0400 Body weight 92.53 kg Nathan E Ball Work Phone: [facility] [employer] DO Work Phone: 03-07-2023 10:04-0400 Diastolic blood pressure 72 mm[Hg] Nathan E Ball Work Phone: [facility] [employer] [address] DO Work Phone: 03-07-2023 10:04-0400 Heart rate 45 /min Nathan E Ball Work Phone: [facility] [employer] [address] DO Work Phone: 03-07-2023 10:04-0400 Systolic blood pressure 144 mm[Hg] Nathan E Ball Work Phone: [facility] [employer] DO Work Phone: 02-14-2023 11:15-0400 Body height 165.1 cm Nathan Ball Other [employer] Other 02-14-2023 11:15-0400 Body mass index (BMI) [Ratio] 32.61 kg/m2 Nathan Ball Other [employer] Other 02-14-2023 11:15-0400 Body weight 88.91 kg Nathan Ball Other [employer] Other 02-14-2023 11:15-0400 Diastolic blood pressure 72 mm[Hg] Nathan Ball Other [employer] Other 02-14-2023 11:15-0400 Respiratory rate 12 /min Nathan Ball Other [employer] Other 02-14-2023 11:15-0400 Systolic blood pressure 204 mm[Hg] Nathan Ball Other [employer] Other 02-02-2023 12:15-0400 Body height 165.1 cm Nathan Ball Other [employer] Other 02-02-2023 12:15-0400 Body mass index (BMI) [Ratio] 32.78 kg/m2 Nathan Ball Other [employer] Other 02-02-2023 12:15-0400 Body weight 89.36 kg Nathan Ball Other [employer] Other 02-02-2023 12:15-0400 Diastolic blood pressure 70 mm[Hg] Nathan Ball Other [employer] Other 02-02-2023 12:15-0400 Respiratory rate 12 /min Nathan Ball Other [employer] Other 02-02-2023 12:15-0400 Systolic blood pressure 201 mm[Hg] Nathan Ball Other [employer] Other 12-14-2022 10:00-0500 Body height 165.1 cm Nathan Ball Other [employer] Other 12-14-2022 10:00-0500 Body mass index (BMI) [Ratio] 32.53 kg/m2 Nathan Ball Other [employer] Other 12-14-2022 10:00-0500 Body weight 88.68 kg Nathan Ball Other [employer] Other 12-14-2022 10:00-0500 Diastolic blood pressure 70 mm[Hg] Nathan Ball Other [employer] [employer] Other 12-14-2022 10:00-0500 Respiratory rate 12 /min Nathan Ball Other [employer] Other 12-14-2022 10:00-0500 Systolic blood pressure 140 mm[Hg] Nathan Ball Other [employer] Other 12-04-2022 13:25-0500 Body height 166.4 cm Luis Mckenzie MD Work Phone: [facility] 12-04-2022 13:25-0500 Body temperature 97.11 [degF] Luis Mckenzie MD Work Phone: [facility] 12-04-2022 13:25-0500 Body weight 90.36 kg Luis Mckenzie MD Work Phone: [facility] 12-04-2022 13:25-0500 Diastolic blood pressure 54 mm[Hg] Luis Mckenzie MD Work Phone: [facility] 12-04-2022 13:25-0500 Heart rate 63 /min Luis Mckenzie MD Work Phone: [facility] 12-04-2022 13:25-0500 Respiratory rate 16 /min Luis Mckenzie MD Work Phone: [facility] 12-04-2022 13:25-0500 SaO2% (BldA) [Mass fraction] 96 % Luis Mckenzie MD Work Phone: [facility] 12-04-2022 13:25-0500 Systolic blood pressure 167 mm[Hg] Luis Mckenzie MD Work Phone: [facility] 11-14-2022 15:00-0500 Body height 165.1 cm Nathan Ball Other [employer] Other 11-14-2022 15:00-0500 Body mass index (BMI) [Ratio] 32.53 kg/m2 Nathan Ball Other [facility] [employer] Other 11-14-2022 15:00-0500 Body weight 88.68 kg Nathan Ball Other [employer] Other 11-14-2022 15:00-0500 Diastolic blood pressure 72 mm[Hg] Nathan Ball Other [facility] Other 11-14-2022 15:00-0500 Respiratory rate 12 /min Nathan Ball Other [facility] Other 11-14-2022 15:00-0500 Systolic blood pressure 130 mm[Hg] Nathan Ball Other [facility] Other 05-29-2022 10:06-0400 Body height 166.4 cm Luis Mckenzie MD Work Phone: [facility] 05-29-2022 10:06-0400 Body temperature 97.59 [degF] Luis Mckenzie MD Work Phone: [facility] 05-29-2022 10:06-0400 Body weight 89.72 kg Luis Mckenzie MD Work Phone: [facility] 05-29-2022 10:06-0400 Diastolic blood pressure 50 mm[Hg] Luis Mckenzie MD Work Phone: [facility] 05-29-2022 10:06-0400 Heart rate 50 /min Luis Mckenzie MD Work Phone: [facility] 05-29-2022 10:06-0400 Respiratory rate 16 /min Luis Mckenzie MD Work Phone: [facility] 05-29-2022 10:06-0400 SaO2% (BldA) [Mass fraction] 96 % Luis Mckenzie MD Work Phone: [facility] 05-29-2022 10:06-0400 Systolic blood pressure 155 mm[Hg] Luis Mckenzie MD Work Phone: [facility] Encounters Encounter Date Encounter Type Care Provider Facility Start: 06-19-2025 End: 06-19-2025 ambulatory Nathan Isabela DO Work Phone: [facility] Work Phone: Start: 06-19-2025 End: 06-19-2025 Patient encounter procedure Nathan Ball DO -[facility] Work Phone: Start: 05-19-2025 End: 05-19-2025 ambulatory Nathan Ball DO Work Phone: [facility] Work Phone: Start: 05-19-2025 End: 05-19-2025 Patient encounter procedure Nathan Ball DO -[facility] Work Phone: Start: 03-19-2025 End: 03-19-2025 ambulatory Nathan Hathaway DO Work Phone: [facility] Work Phone: Start: 03-19-2025 End: 03-19-2025 Patient encounter procedure Nathan Ball DO Work Phone: [facility] Work Phone: Start: 03-18-2025 Non-patient / Non-visit Cadence in Isabela DO Work Phone: [facility] Work Phone: Start: 03-17-2025 End: 03-17-2025 Subsequent hospital visit by physician Laura Blair Echo/Vasc Room [facility] Comment on above: Essential hypertensi on; Palpitations Start: 03-17-2025 End: 03-17-2025 ambulatory HOLDEN [facility] Start: 03-13-2025 End: 03-13-2025 Patient encounter procedure Nathan Ball DO Work Phone: [facility] Work Phone: Start: 02-25-2025 End: 02-25-2025 Nidia Esparza MD Work Phone: [facility] Start: 02-25-2025 End: 02-25-2025 Nidia Esparza MD Work Phone: [facility] Start: 02-25-2025 End: 02-25-2025 Office outpatient visit 15 minutes Reyna Esparza MD Work Phone: [facility] Comment on above: Nontoxic multinodula r goiter (CMS/HCC) (Primary Dx) Start: 02-25-2025 End: 02-25-2025 ambulatory REYNA ESPARZA Not Available Start: 02-12-2025 End: 02-12-2025 Emergency department patient visit Nathan Hathaway Facility:[facility] Start: 02-10-2025 End: 02-10-2025 Clinisync Result Encounter Reyna Esparza MD Work Phone: [facility] Unsolicited Start: 02-10-2025 End: 02-10-2025 Clinisync Result Encounter Reyna Esparza MD Work Phone: [facility] Unsolicited Start: 01-26-2025 End: 01-26-2025 ambulatory [facility] Start: 01-23-2025 Non-patient / Non-visit Benjam in Isabela DO Work Phone: [facility] Work Phone: Start: 01-22-2025 End: 01-22-2025 ambulatory Nathan Hathaway DO Work Phone: [facility] Work Phone: Start: 01-22-2025 End: 01-22-2025 Patient encounter procedure Nathan Hathaway DO [facility] Phone[facility] Work Phone: Start: 01-12-2025 End: 01-12-2025 Office outpatient visit 25 minutes [facility] GEOPHYSICAL OBSERVER-DOCTOR OF DENTAL MEDICINE Work Phone: [facility] Comment on above: BMI 33.0-33.9,adult (Primary Dx); Essential hypertension; Palpitations; ASHD (arteriosclerotic heart disease); Mixed hyperlipidemia Start: 01-12-2025 End: 01-12-2025 ambulatory [facility] Start: 12-29-2024 End: 12-29-2024 ambulatory Nathan Ball DO Work Phone: [facility] Work Phone: Start: 12-29-2024 End: 12-29-2024 Patient encounter procedure Nathan Ball DO Work Phone: [facility] Work Phone: Start: 12-18-2024 Non-patient / Non-visit Benjam in Ball DO Work Phone: [facility] Work Phone: Start: 12-16-2024 End: 12-16-2024 Patient encounter procedure Nathan Hathaway DO Work Phone: [facility] Work Phone: Start: 11-25-2024 End: 11-25-2024 Bamboo [...] ESPARZA Not Available Start: 11-19-2024 ambulatory Nathan Hathaway DO Work Phone: [facility] Work Phone: Start: 11-19-2024 Non-patient / Non-visit Benjam in Ball DO Work Phone: [facility] Work Phone: Start: 11-17-2024 End: 11-17-2024 Admission to same day surgery center Nathan Hathaway DO Work Phone: [facility] Work Phone: Start: 11-17-2024 End: 11-17-2024 ambulatory Nathan Hathaway DO Work Phone: [facility] Work Phone: Start: 10-09-2024 End: 10-09-2024 Refnawaf Braxton COT Work Phone: [facility] Start: 10-08-2024 End: 10-08-2024 Office outpatient visit 25 minutes Edinson Bledsoe [place] DO Work Phone: [facility] Comment on above: ASHD (arteriosclerot ic heart disease); Essential hypertension; BMI 33.0-33.9,adult; Former smoker; S/P PTCA (percutaneous transluminal coronary angioplasty); Mixed hyperlipidemia; Coronary arteriosclerosis after percutaneous transluminal coronary angioplasty (PTCA) Start: 10-08-2024 End: 10-08-2024 ambulatory [facility] Start: 09-12-2024 Non-patient / Non-visit Cadence in Isabela DO Work Phone: [facility] Work Phone: Start: 09-11-2024 End: 09-11-2024 ambulatory [facility] Work Phone: Start: 09-11-2024 End: 09-11-2024 Patient encounter procedure [facility] Work Phone: Start: 09-04-2024 Non-patient / Non-visit [facility] Work Phone: Start: 07-16-2024 End: 07-16-2024 ambulatory [facility] Work Phone: Start: 07-16-2024 End: 07-16-2024 Patient encounter procedure [facility] Work Phone: Start: 06-03-2024 End: 06-03-2024 ambulatory DO Nathan Hathaway Work Phone: [facility] Work Phone: Start: 06-03-2024 End: 06-03-2024 Patient encounter procedure DO Nathan Hathaway Work Phone: [facility] Work Phone: Start: 05-20-2024 Non-patient / Non-visit DO Natalio Hathaway Work Phone[facility] Work Phone: Start: 04-30-2024 Non-patient / Non-visit DO Natalio Hathaway Work Phone: [facility] Work Phone: Start: 04-28-2024 End: 04-28-2024 ambulatory FERCHO TSE Not Available Start: 04-21-2024 End: 04-21-2024 Office outpatient visit 15 minutes Holden Rosado GEOPHYSICAL OBSERVER-DOCTOR OF DENTAL MEDICINE Work Phone: [facility] Comment on above: Essential hypertensi on (Primary Dx); ASHD (arteriosclerotic heart disease); Mixed hyperlipidemia; BMI 32.0-32.9,adult Start: 04-21-2024 End: 04-21-2024 ambulatory [facility] Start: 03-12-2024 End: 03-12-2024 Subsequent hospital visit by physician [facility] Comment on above: ASHD (arteriosclerot ic heart disease) Start: 03-05-2024 End: 03-05-2024 Patient encounter procedure DO Nathan Hathaway Work Phone: [facility] Work Phone: Start: 03-05-2024 End: 03-05-2024 ambulatory DO Ntahan Hathaway Work Phone: [facility] Work Phone: Start: 03-05-2024 End: 03-05-2024 Office outpatient visit 25 minutes Holden Rosado GEOPHYSICAL OBSERVER-DOCTOR OF DENTAL MEDICINE Work Phone: [facility] Comment on above: ASHD (arteriosclerot ic heart disease) (Primary Dx); Essential hypertension; Mixed hyperlipidemia; BMI 32.0-32.9,adult Start: 02-27-2024 End: 02-27-2024 Patient encounter procedure DO Nathan Hathaway Work Phone: [facility] Work Phone: Start: 02-21-2024 Non-patient / Non-visit DO Natalio Hathaway Work Phone: [facility] Work Phone: Start: 02-20-2024 Non-patient / Non-visit DO Natalio Hathaway Work Phone: [facility] Work Phone: Start: 02-19-2024 Non-patient / Non-visit DO Natalio Hathaway Work Phone: [facility] Work Phone: Start: 02-18-2024 Non-patient / Non-visit DO Natalio Hathaway Work Phone: [facility] Work Phone: Start: 02-13-2024 End: 02-13-2024 ambulatory [facility] Work Phone: Start: 02-13-2024 End: 02-13-2024 Patient encounter procedure [facility] Work Phone: Start: 02-02-2024 Non-patient / Non-visit [facility] Work Phone: Start: 02-01-2024 End: 02-01-2024 ambulatory [facility] Work Phone: Start: 02-01-2024 End: 02-01-2024 Patient encounter procedure [facility] Work Phone: Start: 01-04-2024 End: 01-04-2024 ambulatory Nathan Hathaway Other [employer] Other Start: 01-04-2024 Telephone encounter Nathan [facility] Start: 12-18-2023 Non-patient / Non-visit [facility] Work Phone: Start: 11-27-2023 End: 11-27-2023 ambulatory Nathan Ball Other [facility] Other Start: 11-27-2023 Telephone encounter Nathan [facility] Start: 11-05-2023 End: 11-05-2023 ambulatory NATHAN E BALL Facility:[facility] Start: 11-02-2023 End: 11-02-2023 ambulatory Nathan Ball Other [facility] Other Start: 11-02-2023 Office outpatient vi sit 25 minutes Nathan Ball [facility] Start: 10-02-2023 End: 10-02-2023 ambulatory Natahn Ball Other [facility] Other Start: 10-02-2023 Office outpatient vi sit 25 minutes Nathan Ball [facility] Start: 09-26-2023 End: 09-26-2023 ambulatory Nathan Ball Other [facility] Other Start: 09-26-2023 Telephone encounter Nathan Ball [facility] Start: 09-21-2023 End: 09-21-2023 ambulatory Nathan Ball Other [facility] Other Start: 09-21-2023 Telephone encounter Nathan Ball [facility] Start: 2023 End: 2023 ambulatory Nathan Ball Other [facility] Other Start: 2023 Telephone encounter Nathan Ball [facility] Start: 09-13-2023 End: 09-13-2023 ambulatory Nathan Ball Other [facility] Other Start: 09-13-2023 Telephone encounter Nathan Ball [facility] Start: 09-11-2023 End: 09-11-2023 ambulatory Nathan Ball Other [facility] Other Start: 09-11-2023 Office outpatient vi sit 15 minutes Nathan Ball [facility] Start: 08-16-2023 End: 08-16-2023 ambulatory Nathan Ball Other [facility] Other Start: 08-16-2023 Telephone encounter Nathan Ball [facility] Start: 07-31-2023 End: 07-31-2023 ambulatory Nathan Ball Other [facility] Other Start: 07-31-2023 Telephone encounter Nathan Ball [facility] Start: 07-30-2023 End: 07-30-2023 ambulatory Nathan Ball Other [facility] Other Start: 07-30-2023 Telephone encounter Nathan Ball [facility] Start: 07-19-2023 End: 07-19-2023 ambulatory Nathan Ball Other [facility] Other Start: 07-19-2023 Telephone encounter Nathan Ball [facility] Start: 07-18-2023 End: 07-18-2023 ambulatory Nathan Ball Other [facility] Other Start: 07-18-2023 Telephone encounter Nathan Ball [facility] Start: 07-17-2023 End: 07-17-2023 ambulatory Nathan Ball Other [facility] Other Start: 07-17-2023 Nursing evaluation o f patient and report Nathan Ball [facility] Start: 06-28-2023 End: 06-28-2023 ambulatory Nathan Ball Other [facility] Other Start: 06-28-2023 Telephone encounter Nathan Ball [facility] Start: 06-25-2023 End: 06-25-2023 ambulatory Nathan Hathaway Other [facility] Other Start: 06-25-2023 Telephone encounter Nathan Hathaway [facility] Start: 06-21-2023 End: 06-21-2023 ambulatory Nathan Hathaway Other [facility] Other Start: 06-21-2023 Telephone encounter Nathan Hathaway [facility] Start: 06-19-2023 End: 06-19-2023 ambulatory Nathan Hathaway Other [facility] Other Start: 06-19-2023 Telephone encounter Nathan Hathaway FP [facility] Start: 06-18-2023 End: 06-18-2023 ambulatory Nathan Hathaway Other [facility] Other Start: 06-18-2023 Telephone encounter Nathan Hathaway [facility] Start: 06-15-2023 End: 06-15-2023 ambulatory Nathan Hathaway Other [employer] Other Start: 06-15-2023 Telephone encounter Nathan Hathaway [facility] Start: 06-08-2023 End: 06-08-2023 ambulatory Nathan Hathaway Other [employer] Other Start: 06-08-2023 Office outpatient vi sit 15 minutes Nathan Hathaway [facility] Start: 06-06-2023 Telephone encounter Juan Rico Hematology/Oncology Comment on above: Results Start: 06-04-2023 End: 06-04-2023 ambulatory Luis Mckenzie MD Work Phone: [employer] Other Comment on above: Abnormal SPEP (Prima ry Dx); Anemia, unspecified type; Neuropathy - (NOS); Heart disease Start: 06-04-2023 End: 06-04-2023 Patient encounter procedure Luis Mckenzie MD Work Phone: [place] Start: 06-04-2023 Telephone encounter Nathan Hathaway [facility] Start: 06-01-2023 End: 06-01-2023 ambulatory Nathan Isabela Other [employer] [employer] Other Start: 06-01-2023 Telephone encounter Nathan Hathaway [facility] Start: 05-28-2023 End: 05-28-2023 ambulatory NATHAN HATHAWAY Facility:[facility] Start: 05-25-2023 End: 05-25-2023 ambulatory Nathan Hathaway Other [employer] Other Start: 05-25-2023 Transitional care julito stark srvc 14 day discharge Nathan Hathaway [facility] Start: 05-17-2023 End: 05-18-2023 Evaluation and management of inpatient DO Nathan Ball Work Phone: [facility] [place] [facility] Work Phone: Start: 05-17-2023 End: 05-18-2023 observation encounter DO Nathan Ball Work Phone: [facility] Work Phone: Start: 05-16-2023 End: 05-16-2023 ambulatory Nathan Hathaway Other [employer] Other Start: 05-16-2023 Office outpatient vi sit 25 minutes Nathan Ball [facility] Start: 05-09-2023 End: 05-09-2023 ambulatory Nathan Isabela Other [employer] Other Start: 05-09-2023 Office outpatient vi sit 25 minutes Nathan Ball [facility] Start: 05-09-2023 Telephone encounter Nathan E Ball Work Phone: [facility] [address] DO Work Phone: Start: 04-26-2023 End: 04-26-2023 ambulatory Nathan Ball Other [employer] Other Start: 04-26-2023 Office outpatient vi sit 25 minutes Nathan Isabela [facility] Start: 04-26-2023 Telephone encounter Nathan Hathaway [facility] Start: 04-18-2023 End: 04-18-2023 ambulatory Nathan Hathaway Other [employer] Other Start: 04-18-2023 Office outpatient vi sit 25 minutes Nathan Ball [facility] Start: 04-18-2023 Telephone encounter Nathan CHURCHILL [facility] Start: 03-27-2023 End: 03-27-2023 ambulatory Nathan Hathaway Other [employer] Other Start: 03-27-2023 Telephone encounter Nathan Hathaway [facility] Start: 03-15-2023 End: 03-15-2023 ambulatory Nathan Hathaway Other [employer] Other Start: 03-15-2023 Office outpatient vi sit 25 minutes Nathan Hathaway [facility] Start: 03-09-2023 End: 03-09-[address] Edinson Perry [facility] [employer] Other Start: 03-09-2023 Telephone encounter Nathan CHURCHILL [facility] Start: 03-09-2023 SURGNONUH, Provider: Edinson Perry, Status: Pen, Time: 10:00 AM Nathan Hathaway Work Phone: [facility] [address] DO Work Phone: Start: 03-09-2023 End: 03-09-2023 Admission to same day surgery center DO Nathan Ball Work Phone: [facility] Work Phone: Start: 03-08-2023 End: 03-08-2023 ambulatory DO Nathan Ball Work Phone: [facility] Work Phone: Start: 03-08-2023 End: 03-08-2023 Patient encounter procedure DO Nathan Ball Work Phone: [facility] [employer] Work Phone: Start: 03-07-2023 Office consultation new/estab patient 80 min Nathan Hathaway Work Phone: -[facility] [address] DO Work Phone: Start: 03-07-[address] Edinson Perry Facility: Start: 03-05-2023 End: 03-05-2023 ambulatory Nathan Hathaway Other [employer] Other Start: 03-05-2023 Telephone encounter Nathan Hathaway [facility] Start: 03-01-2023 End: 03-02-[address] NATHAN HATHAWAY Facility:[facility] Start: 02-27-2023 End: 02-27-2023 ambulatory Nathan Hathaway Other [employer] Other Start: 02-27-2023 Telephone encounter Nathan Hathaway [facility] Start: 02-20-2023 End: 02-20-2023 ambulatory Nathan Hathaway Other [employer] Other Start: 02-20-2023 Telephone encounter Nathan Hathaway [facility] Start: 02-14-2023 End: 02-14-2023 ambulatory Nathan Hathaway Other [employer] Other Start: 02-14-2023 Office outpatient vi sit 25 minutes Nathan Hathaway [facility] Start: 02-14-2023 Telephone encounter Nathan Hathaway [facility] Start: 02-11-2023 End: 02-11-2023 ambulatory Nathan Hathaway Other [employer] Other Start: 02-11-2023 Telephone encounter Nathan Hathaway [facility] Start: 02-08-2023 End: 02-09-2023 Evaluation and management of inpatient DR NATHAN HATHAWAY Facility:[facility] Start: 02-02-2023 End: 02-02-2023 ambulatory Nathan Hathaway Other [employer] Other Start: 02-02-2023 Office outpatient vi sit 25 minutes Nathan Hathaway SHERRI Hathaway [facility] Start: 01-08-2023 End: 01-09-[address] NATHAN HATHAWAY Facility:[facility] Start: 12-21-2022 End: 12-21-2022 ambulatory Nathan Hathaway Other [employer] Other Start: 12-21-2022 Telephone encounter Nathan CHURCHILL Bessy Hathaway [facility] Start: 12-20-2022 End: 12-20-2022 ambulatory Nathan Hathaway Other [employer] Other Start: 12-20-2022 Telephone encounter Nathan CHURCHILL Bessy Hathaway [facility] Start: 12-14-2022 End: 12-14-2022 ambulatory Nathan Hathaway Other [employer] Other Start: 12-14-2022 Patient encounter procedure Nathan Hathaway SHERRI [facility] Start: 12-04-2022 End: 12-04-2022 ambulatory NATHAN HATHAWAY Facility:[facility] Start: 12-04-2022 End: 12-04-2022 ambulatory Luis Mckenzie MD Work Phone: Hematology/Oncology Comment on above: Abnormal SPEP (Prima ry Dx); Neuropathy - (NOS); Lung nodules Start: 12-04-2022 End: 12-04-2022 Patient encounter procedure Luis Mckenzie MD Work Phone: [place] Start: 11-27-2022 End: 11-27-2022 ambulatory LUIS MCKENZIE Facility:[facility] Start: 11-23-2022 End: 11-23-2022 ambulatory Nathan Hathaway Other [employer] Other Start: 11-23-2022 Telephone encounter Nathan CHURCHILL Bessy Hathaway [facility] Start: 11-16-2022 End: 11-17-[address] NATHAN HATHAWAY Facility:[facility] Start: 11-14-2022 End: 11-14-2022 ambulatory Nathan Hathaway Other [employer] Other Start: 11-14-2022 Office outpatient vi sit 25 minutes Nathan POLANCO [facility] Start: 09-11-2022 End: 09-12-[address] NATHAN [...] 12-13-2021 Adult health examination Lauri Hathaway Other [employer] Other Procedures Date Procedure Procedure Detail Performing Clinician Start: 02-12-2025 Plain chest X-ray Lauri Hathaway DO Work Phone: Start: 02-10-2025 Us soft tissue head & neck real time imge docm Reyna Esparza MD Work Phone: Start: 11-17-2024 Aspiration Nathan Pacheco all DO Work Phone: Start: 03-12-2024 Cv strs tst xers&/or rx cont ecg trcg only Holden Rosado GEOPHYSICAL OBSERVER-DOCTOR OF DENTAL MEDICINE Work Phone: Start: 10-17-2023 History of placement of stent for coronary artery disease S/P coronary artery stent placement Holden Rosado GEOPHYSICAL OBSERVER-DOCTOR OF DENTAL MEDICINE Work Phone: Start: 05-17-2023 CT angiography of thorax DO Nathan Hathaway Work Phone: Start: 05-17-2023 Duplex scan of lower limb veins DO Nathan Ball Work Phone: Start: 03-09-2023 CL Ivus Initial Vessel DO Nathan Ball Work Phone: Start: 03-09-2023 CL LHC & COR Angio DO B enjamin Ball Work Phone: Start: 03-09-2023 CL Stent 1st Vessel LAD VALERI DO Nathan Ball Work Phone: Start: 03-09-2023 CL Stent 1st Vessel RCA VALERI DO Nathan Ball Work Phone: Start: 08-28-2022 Ct abdomen & pelvis w/contrast material Luis Mckenzie MD Work Phone: Start: 08-28-2022 Ct thorax w/contrast material Luis Mckenzie MD Work Phone: Start: 05-29-2022 Adult depression screening assessment Luis Mckenzie MD Work Phone: Start: 11-22-2021 Adult depression screening assessment Luis Mckenzie MD Work Phone: Start: 11-11-2018 Screening for malign ant neoplasm of colon Nathan Ball Other Start: 10-12-2017 Screening for osteoporosis Nathan Ball Other Depression screening Benjami n Ball Other Hysterectomy Nathan E Ball Work Phone: Screening for malign ant neoplasm of breast Nathan Ball Other Screening for malign ant neoplasm of breast Nathan Ball Other Total colonoscopy Nathan E Ball Work Phone: Comment on above: 2012; Plan of Treatment Date Care Activity Detail Author Start: 11-05-2026 Diabetes Screening Diabetes Screening [facility] Start: 06-04-2026 DIABETES SCREEN DIABETES SCREEN [facility] Start: 11-27-2025 DIABETES SCREEN DIABETES SCREEN [facility] Start: 10-27-2025 End: 10-27-2025 Patient encounter procedure 10/27/2025 2:10 PM EST Office Visit [facility] [address] [facility] [address] [place] [id number] Edinson Perry, [address] [facility] [address] [place] [address] [facility] Start: 08-24-2025 DIABETES SCREEN DIABETES SCREEN [facility] Start: 05-22-2025 DIABETES SCREEN DIABETES SCREEN [facility] Start: 05-04-2025 COVID-19 Vaccine ( season) COVID-19 Vaccine () [facility] Start: 04-29-2025 End: 04-29-2025 Patient encounter procedure 04/29/2025 9:30 AM EDT Office Visit [facility] [address] [place] [id number] Fercho Tse DO [address] [place] [address] [facility] Start: 03-17-2025 End: 03-17-2025 Patient encounter procedure 03/17/2025 10:45 AM EDT Appointment [facility] [address] [facility] [address] [place] [phone] [facility] Start: 02-25-2025 End: 02-25-2025 Patient encounter procedure [facility] Comment on above: Arrived Start: 01-26-2025 End: 01-26-2025 Professional / ancillary services management 01/26/2025 3:00 PM EDT Ancillary Procedure [facility] [address] [facility] [address] [place] [phone] [facility] Start: 01-12-2025 End: 01-12-2026 Holter monitor study Holter Or Event Relocation Manager Cardiac Services Routine Palpitations Expected: 01/12/2025 (Approximate), Expires: 01/12/2026 [facility] Work Phone: Comment on above: Expected: 01/12/2025 (Approximate), Expi res: 01/12/2026 Start: 01-12-2025 End: 01-12-2027 US Heart Transthoracic Transthoracic Echo Complete Echocardiography Routine Essential hypertension Palpitations Expected: 01/12/2025 (Approximate), Expires: 01/12/2027 [facility] Work Phone: Comment on above: Expected: 01/12/2025 (Approximate), Expi res: 01/12/2027 Start: 11-25-2024 End: 11-25-2024 Patient encounter procedure 11/25/2024 2:00 PM EST Office Visit [facility] [address] [facility] [address] [place] [id number] Reyna Esparza MD [address] [place] [address] Arrived [facility] Comment on above: Arrived Start: 11-19-2024 Patient referral [facility] Work Phone: Start: 11-17-2024 [facility] Start: 11-17-2024 Aspiration [facility] Start: 10-08-2024 End: 10-08-2024 Patient encounter procedure 10/08/2024 10:40 AM EST Office Visit [facility] [address] [place] [phone] Edinson Perry DO [address] [place] [address] [facility] Start: 06-29-2024 Covid-19 Vaccine ( season) Covid-19 Vaccine ( season) [facility] Start: 06-29-2024 Influenza vaccination [facility] Start: 04-21-2024 End: 04-21-2025 Basic metabolic 2000 panel - Serum or Plasma Basic Metabolic Panel Lab Routine ASHD (arteriosclerotic heart disease) Expected: 04/21/2024 (Approximate), Expires: 04/21/2025 [facility] Work Phone: Comment on above: Expected: 04/21/2024 (Approximate), Expi res: 04/21/2025 Start: 04-21-2024 End: 04-21-2024 Patient encounter procedure 04/21/2024 10:30 AM EDT Office Visit [facility] [address] [place] [phone] Holden Rosado, GEOPHYSICAL OBSERVER-DOCTOR OF DENTAL MEDICINE [address] [place] [address] [facility] Start: 03-12-2024 End: 03-12-2024 Patient encounter procedure 03/12/2024 10:15 AM EDT Appointment [facility] [address] [place] [phone] [facility] Start: 03-12-2024 End: 03-12-2024 Patient encounter procedure [facility] Start: 03-05-2024 End: 03-05-2025 Basic metabolic 2000 panel - Serum or Plasma Basic Metabolic Panel Lab Routine Essential hypertension Expected: 03/05/2024 (Approximate), Expires: 03/05/2025 [facility] Work Phone: Comment on above: Expected: 03/05/2024 (Approximate), Expi res: 03/05/2025 Start: 03-05-2024 End: 03-05-2026 NM Heart Perfusion W stress and W radionuclide IV Nuclear Stress Test Cardiac Nuclear Medicine Routine ASHD (arteriosclerotic heart disease) Expected: 03/05/2024 (Approximate), Expires: 03/05/2026 [facility] Work Phone: Comment on above: Expected: 03/05/2024 (Approximate), Expi res: 03/05/2026 Start: 02-09-2024 Echocardiography Echocardiogram [facility] Start: 10-29-2023 Advance Directive Discussion Advance Directive Discussion [facility] Start: 09-18-2023 FUV, Provider: Edinson Perry, Status: Pen, Time: 11:20 AM FUV, Provider: Edinson Perry, Status: Pen, [facility]: [facility] Work Phone: Start: 06-29-2023 COVID-19 Vaccine ( season) COVID-19 Vaccine ( season) [facility] Start: 06-29-2023 Influenza vaccination INFLUENZA (#1) [facility] Start: 05-29-2023 Adult depression screening assessment DEPRESSION SCREENING [facility] Start: 05-29-2023 FUV, Provider: Edinson Perry, Status: Pen, Time: 10:20 AM FUV, Provider: Edinson Perry, Status: Pen, Time: 10:20 AM [facility] Work Phone: Start: 05-18-2023 [facility] Start: 05-17-2023 Hospital admission [facility] Start: 03-09-2023 [facility] Start: 01-13-2023 COVID-19 VACCINE (6 - Pfizer series) COVID-19 VACCINE (6 - Pfizer series) [facility] Start: 11-22-2022 Adult depression screening assessment DEPRESSION SCREENING [facility] Start: 10-29-2022 ADVANCE DIRECTIVE DISCUSSION ADVANCE DIRECTIVE DISCUSSION [facility] Start: 10-29-2022 DEPRESSION ASSESSMENT DEPRESSION ASSESSMENT [facility] Start: 10-13-2022 COVID-19 Vaccine (3 - Pfizer risk series) COVID-19 Vaccine (3 - Pfizer risk series) [facility] Start: 06-29-2022 Influenza vaccination INFLUENZA (#1) [facility] Start: 03-25-2022 COVID-19 VACCINE (5 - Booster for Pfizer series) COVID-19 VACCINE (5 - Booster for Pfizer series) [facility] Start: 10-29-2021 ADVANCE DIRECTIVE DISCUSSION ADVANCE DIRECTIVE DISCUSSION [facility] Start: 10-29-2021 DEPRESSION ASSESSMENT DEPRESSION ASSESSMENT [facility] Start: 09-16-2021 Shingrix Vaccine (3 of 3) Shingrix Vaccine (3 of 3) [facility] Start: 09-16-2021 Zoster Vaccines (2 of 2) Zoster Vaccines (2 of 2) [facility] Start: 07-16-2021 SHINGRIX VACCINE (2 of 2) SHINGRIX VACCINE (2 of 2) [facility] Start: 2017 RSV High Risk: (Elderly (60+) or Population) (1 - 1-dose 75+ series) RSV High Risk: (Elderly (60+) or Population) (1 - 1-dose 75+ series) [facility] Start: 2017 RSV Vaccine (1 - 1-dose 75+ series) RSV Vaccine (1 - 1-dose 75+ series) [facility] Start: 07-17-2014 DTaP/Tdap/Td Vaccines (1 - Tdap) DTaP/Tdap/Td Vaccines (1 - Tdap) [facility] Start: 07-17-2014 Urine microalbumin profile DTaP,Tdap,Td Vaccine (1 - Tdap) [facility] Start: 2007 BONE DENSITY BONE DENSITY [facility] Start: 2007 PNEUMOCOCCAL: 65+ (1 - PCV) PNEUMOCOCCAL: 65+ (1 - PCV) [facility] Start: 2007 Screening for osteoporosis Bone Density Screening [facility] Start: 2002 RSV patients and/or patients aged 60+ years (1 - 1-dose 60+ series) RSV patients and/or patients aged 60+ years (1 - 1-dose 60+ series) [facility] Start: 1964 DTaP/Tdap/Td Vaccines (1 - Tdap) DTaP/Tdap/Td Vaccines (1 - Tdap) [facility] Start: 1961 Urine microalbumin profile DTAP,TDAP,TD (1 - Tdap) [facility] Start: 1960 Anxiety Screening Anxiety Screening [facility] Start: 1960 Depression Screening Depression Screening [facility] Start: 1960 Diabetes mellitus screening Diabetes Screening [facility] Start: 1942 Creatinine measurement Creatinine Level [facility] Start: 1942 Lipid panel Lipid Panel [facility] Start: 1942 Medicare Annual Wellness Visit Medicare Annual Wellness Visit (AWV) [facility] Start: 1942 Potassium measurement Potassium Level [facility] Start: 1942 Screening for osteoporosis Bone Density Scan [facility] Comprehensive metabo lic 2000 panel - Serum or Plasma [facility] End: 06-28-2023 Ct abdomen & pelvis w/contrast material CT ABD/PEL W IVCON Radiology Routine Disorder of adrenal gland (HCC) 1 Occurrences starting 05/29/2022 until 06/28/2023 [facility] Work Phone: Comment on above: 1 Occurrences starting 05/29/2022 until 06/28/2023 End: 06-28-2023 CT CHEST W IVCON CT CHEST W IVCON Radiology Routine Lung nodules 1 Occurrences starting 05/29/2022 until 06/28/2023 [facility] Work Phone: Comment on above: 1 Occurrences starting 05/29/2022 until 06/28/2023 Patient Education [facility] Work Phone: Patient referral [facility] Work Phone: End: 03-17-2025 US Heart Transthoracic [facility] Work Phone: Comment on above: Once for 1 Occurrences starting 03/17/20 until 03/17/2025 XR Knee - right 4 Views [facility] Immunizations Immunization Date Immunization Notes Care Provider Fa cili 07-16-2024 influenza, high dose seasonal, preservative-free [facility] 08-06-2023 influenza virus vaccine, unspecified formulation [facility] 08-06-2023 influenza, high dose seasonal, preservative-free Nathan Hathaway Other [employer] Other 09-15-2022 COVID-19 Pfizer (Pediatric) Nathan Hathaway Other [facility] 09-15-2022 Pfizer COVID-19 Vac Bivalent 30 MCG/0.3ML Intramuscular Suspension Nathan Hathaway Work Phone: [facility] 08-11-2022 influenza virus vaccine, split virus (incl. purified surface antigen) Nathan Hathaway Other [facility] Other 08-11-2022 influenza virus vaccine, unspecified formulation [facility] 01-28-2022 COVID-19 mRNA, Comirnaty (Pfizer) DO Nathan Hathaway Work Phone: [facility] 01-28-2022 COVID-19 Pfizer Nathan Lucero viviana Other [facility] 07-30-2021 COVID-19 vaccine, ag e 12+ yr ([employer] [facility]) Luis Mckenzie MD Work Phone: [facility] 07-22-2021 zoster vaccine, live Benjami n Isabela Other [facility] 07-19-2021 influenza, high-dose , quadrivalent vaccine (FLUZONE HIGH DOSE QUADRIVALENT) Luis Mckenzie MD Work Phone: [facility] 07-18-2021 influenza virus vaccine, split virus (incl. purified surface antigen) Nathan Hathaway Other [employer] [facility] [employer] Other 07-18-2021 influenza virus vaccine, unspecified formulation [facility] 05-21-2021 zoster vaccine recombinant Luis Mckenzie MD Work Phone: [facility] 05-21-2021 zoster vaccine, live Benjami n Isabela Other [facility] 12-18-2020 COVID-19 vaccine, ag e 12+ yr ([employer] [facility]) Luis Mckenzie MD Work Phone: [facility] 11-27-2020 COVID-19 Vaccine Moderna - Documentation Purposes Only Nathan Hathaway Other [facility] 11-27-2020 COVID-19 vaccine, ag e 12+ yr ([employer] [facility]) Luis Mckenzie MD Work Phone: [facility] 08-11-2020 influenza virus vaccine, split virus (incl. purified surface antigen) Nathan Hathaway Other [employer] Other 08-11-2020 influenza virus vaccine, unspecified formulation [facility] 07-09-2019 AS03 adjuvant Arrival Radiol ogy Work Phone: [facility] 07-09-2019 Seasonal trivalent influenza vaccine, adjuvanted, preservative free Luis Mckenzie MD Work Phone: [facility] 08-13-2018 AS03 adjuvant Arrival Radiol ogy Work Phone: [facility] 08-13-2018 influenza virus vaccine, split virus (incl. purified surface antigen) Nathan Hathaway Other [facility] Other 08-13-2018 influenza virus vaccine, unspecified formulation [facility] 08-13-2018 Seasonal trivalent influenza vaccine, adjuvanted, preservative free Luis Mckenzie MD Work Phone: [facility] 08-03-2017 influenza virus vaccine, split virus (incl. purified surface antigen) Nathan Hathaway Other [facility] [employer] Other 08-03-2017 influenza virus vaccine, unspecified formulation [facility] 08-03-2017 influenza, high dose seasonal, preservative-free Luis Mckenzie MD Work Phone: [facility] 07-13-2016 influenza virus vaccine, split virus (incl. purified surface antigen) Nathan Hathaway Other [facility] Other 07-13-2016 influenza virus vaccine, unspecified formulation [facility] 09-13-2015 pneumococcal conjuga te vaccine, 13 valent Nathan Htahaway Other [facility] 08-17-2015 influenza virus vaccine, split virus (incl. purified surface antigen) Nathan Hathaway Other [facility] [employer] Other 08-17-2015 influenza virus vaccine, unspecified formulation [facility] 07-16-2014 tetanus and diphther ia toxoids, adsorbed, preservative free, for adult use (5 Lf of tetanus toxoid and 2 Lf of diphtheria toxoid) Nathan Hathaway Other [facility] 07-09-2013 tetanus and diphther ia toxoids, adsorbed, preservative free, for adult use (5 Lf of tetanus toxoid and 2 Lf of diphtheria toxoid) Nathan Hathaway Other [facility] 08-11-2010 pneumococcal polysaccharide vaccine, 23 valent Nathan Hathaway Other [facility] Payers Date Payer Category Payer Medicare supplementa l policy (as second payer) AARP [id number] 2022 Unknown 2020 Private Health Insurance [facility] AARP SUPPLEMENT [id number] 2020-Present [phone] [address] [place] [address] Indemnity [id number] 2020 Private Health Insurance [id number] 2007 Medicare MEDICARE MEDICAR E A AND B [id number] 2007-Present [phone] [place] [address] Medicare [id number] 2007 Medicare [id number]. [id number] 1959 Medicare [id number] [id number] 1959 Unknown [id number] 2.16.840.1.089465.19 1942 Unknown [id number] 2.16.840.1.241254.3.579. 2.593 1942 Unknown [id number] 2.16.840.1.750031.3.579. 2.593 1942 Unknown [id number] 2.16.840.1.183322.3.579. 2.593 1942 Unknown [id number] 2.16.840.1.363294.3.579. 2.593 1942 Unknown [id number] 2.16.840.1.479918.3.579. 2.593 1942 Unknown [id number] 2.16.840.1.793279.3.579. 2.593 1942 Unknown [id number] 2.16.840.1.705333.3.579. 2.593 1942 Unknown [id number] 2.16.840.1.416427.3.579. 2.356 1942 Unknown [id number] 2.16.840.1.733793.3.579. 2.356 1942 Unknown [id number] 2.16.840.1.087009.3.579. 2.1259 1942 Unknown [id number] 2.16.840.1.611705.3.579. 2.1259 1942 Unknown [id number] 2.16.840.1.960035.3.579. 2.1259 1942 Unknown [id number] 2.16.840.1.228581.3.579. 2.1244 1942 Unknown [id number] 2.16.840.1.758942.3.579. 2.1244 1942 Unknown [id number] 2.16.840.1.611857.3.579. 2.1244 1942 Unknown [id number] 2.16.840.1.452019.3.579. 2.1244 1942 Unknown [id number] 2.16.840.1.583670.3.579. 2.1246 Medicare Medicare Outpatient [id number] Unknown [id number] Social History Date Type Detail Facility Start: 08-01-2021 End: 03-05-2024 Tobacco smoking status NJIS Ex-smoker [facility] End: 10-29-1992 History of tobacco use Cigarette Smoker [facility] Start: 08-01-2021 End: 03-05-2024 Tobacco use and exposure Smokeless tobacco non-user [facility] Start: 1940 Sex Assigned At Not on file C [facility] Start: 05-12-2022 End: 03-17-2025 Exposure to SARS-CoV-2 (event) Not sure [facility] End: 10-29-1992 History of tobacco use Current smoker [facility] Start: 06-04-2023 End: 01-12-2025 Sex Assigned At [facility] Start: 06-04-2023 End: 01-12-2025 No illicit drug use No illicit drug use [facility] Comment on above: 2 coffees in am and 1 coffee at hs; 1997; Start: 1940 Sex Assigned At Female F [facility] Start: 06-04-2023 Alcohol intake Ex-drinker (finding) [facility] Adult Depression Screening Assessment 0 [facility] Start: 12-18-2023 End: 02-12-2025 Tobacco smoking status NJIS Never smoked tobacco (finding) [facility] Start: 03-05-2024 End: 01-12-2025 Alcoholic beverage intake Lifetime non-drinker (finding) [facility] Work Phone: Start: 09-11-2024 End: 03-19-2025 Sex Female (finding) [facility] Medical Equipment Procedure Code Equipment [...] Facility 05-18-2023 Functional status Patient at Baseline [facility] Work Phone: 03-09-2023 Functional status Patient at Baseline [facility] Work Phone: Mental Status Date Assessment Result Facility 05-18-2023 Cognitive function Cognitive Sta tus Patient at Baseline [facility] Work Phone: 03-09-2023 Cognitive function Cognitive Sta tus Patient at Baseline [facility] Work Phone: Clinical Notes 05-29-2022 to 05-19-2025 Note Date & Type Note Facility 05-19-2025 Evaluation note Diagnosis Onset Date Resolution Acute bronchitis due to other specified organisms noneactive April 292024 3:17pm Acute exacerbation of chronic obstructive airways disease noneactive May 19, 2025 3:17pm ASHD (arteriosclerotic heart disease) acute June 19 9:23am Chronic bronchitis acute June 19, 2025 9:23am Chronic kidney disease acute [place] [facility] 2024 9:23am Chronic venous insufficiency acute June 19 9:23am Essential hypertension acute Au [facility] 2024 9:23am OMAR (generalized anxiety disorder) acute June 19 9:23am Gastroesophageal reflux disease with esophagitis without hemorrhage acute June 19, 2025 9:23am Hypercholesterolemia acute Augu [address] 2024 9:23am 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 June 19, 2025 9:23am Obesity acute June 19, 025 9:23am Screening mammogram for breast cancer acute June 19 9:23am Subclinical hypothyroidism acute June 19, 2025 9:23am Thyroid nodule acute May 9:23am Acute on chronic heart failure with preserved ejection fraction (HFpEF) noneactive June 19, 2025 9:23am Medicare annual wellness visit, subsequent noneactive June 19, 2 025 9:23am [facility] Work Phone: 1(659) 668-800605-16-2025 Evaluation note* Diagnosis Onset Date Resolution Status Admit Date ASHD (arteriosclerotic heart disease) acute March 13, 2025 1:04pm Chronic bronchitis acute March 132024 1:04pm Chronic heart failure with preserved ejection fraction (HFpEF) acute March 13, 2025 1:04pm Chronic venous insufficiency acute March 13, 2025 1:04pm Subclinical hypothyroidism acute March 13, 2025 1:04pm ASHD (arteriosclerotic heart disease) acute March 19, 2025 11:21am Chronic bronchitis acute March 192024 11:21am Chronic kidney disease acute 2024 11:21am Chronic venous insufficiency acute March 19, 2025 11:21am Essential hypertension acute Ma 2024 11:21am Hypercholesterolemia acute March 19, 2025 11:21am Obesity acute March 19, 2025 11:21am Subclinical hypothyroidism acute March 19, 2025 11:21am Thyroid nodule acute March 19, 2025 11:21am Acute on chronic heart failu re with preserved ejection fraction (HFpEF) noneactive March 19, 2025 11:21am [facility] Work Phone: 1(145) 906-202604-15-2025 History of Present illness Narrative* Reyna Esparza MD - 02/25/2025 9:00 AM EDT Subjective Patient ID: Lashaun Joaquin is a 84 y.o. female who presents for Thyroid Nodule (Follow ultrasound [facility] 02/10/25) US shows an 11mm nodule that is unchanged and mult subcentimeter nodules. No family history on file. Active Ambulatory Problems Diagnosis Date Noted Dry eyes 04/28/2024 Epiretinal membrane (ERM) of left eye 04/28/2024 Blepharitis of upper and lower eyelids of both eyes 04/28/2024 Abnormal cardiovascular stress test 11/24/2024 Adrenal nodule ([facility]) 11/24/2024 Anemia 11/24/2024 ASHD (arteriosclerotic heart disease) ([facility]) 10/17/2023 Atrophic vaginitis 11/24/2024 BMI 33.0-33.9,adult 03/05/2024 Cervical spondylosis with radiculopathy 11/24/2024 Chronic bronchitis ([facility]) 11/24/2024 Chronic heart failure with preserved ejection fraction (HFpEF) ([facility]) 11/24/2024 Chronic obstructive pulmonary disease with (acute) exacerbation ([facility]) 11/24/2024 Chronic venous insufficiency 11/24/2024 COVID 10/17/2023 Elevated serum immunoglobulin free light chain level 11/24/2024 Essential hypertension ([facility]) 10/17/2023 Flash pulmonary edema ([facility]) 11/24/2024 Former smoker 10/17/2023 OMAR (generalized anxiety disorder) ([facility]) 11/24/2024 Gastroesophageal reflux disease with esophagitis without hemorrhage 11/24/2024 Heart failure 11/24/2024 Palpitations 01/12/2025 Resolved Ambulatory Problems Diagnosis Date Noted No Resolved Ambulatory Problems Past Medical History: Diagnosis Date Arthritis Cataract Congestive heart failure (CHF) ([facility]) Coronary artery disease ([facility]) GERD (gastroesophageal reflux disease) Hypercholesteremia ([facility]) Hypertension ([facility]) Peripheral neuropathy Past Surgical History: Procedure Laterality [...] mouth in the morning and 10 mEq inthe evening. rosuvastatin (Crestor) 40 MG tablet Take [...] then annually if stable documented in this encounterEllis Fischel Cancer [id number] Evaluation note* Diagnosis Onset Date Resolution Status Admit Date Chronic kidney disease acute [facility] 2024 9:51am Nocturnal leg cramps acute [facility] 2024 9:51am Right knee pain acute December 9:51am ASHD (arteriosclerotic heart disease) acute March 13, 2025 1 :04pm Chronic bronchitis acute March 132024 1:04pm Chronic heart failure with preserved ejection fraction (HFpEF) acute March 13, 2025 1 :04pm Chronic venous insufficiency acute March 13, 2025 1:04pm Subclinical hypothyroidism acute March 13, 2025 1:04pm ASHD (arteriosclerotic heart disease) acute March 19, 2025 1 1:21am Chronic bronchitis acute March 192024 11:21am Chronic heart failure with preserved ejection fraction (HFpEF) acute March 19, 2025 1 1:21am Chronic kidney disease acute Ma y 2024 11:21am Chronic venous insufficiency acute March 19, 2025 11:21am Essential hypertension acute Sc y 2024 11:21am Subclinical hypothyroidism acute March 19, 2025 11:21am Thyroid nodule acute March 19, 2025 11:21am [facility] Work Phone: 1(514) 490-995303-17-2025 Evaluation + Plan note* Assessment & Plan Note - Holden Rosado APRN-DANIELA - 01/12/2025 3:48 PM EDTAssociated Problem(s): Cardiac and Vasculature January 2024 TTE LVEF greater than 55% Biatrial enlargement mild [facility] Work Phone: 1([phone]) 797-457803-17-2025 Miscellaneous Notes* Assessment & Plan Note - CINTIA Gallego - 01/12/2025 3:48 PM EDTAssociated Problem(s): Cardiac and Vasculature January 2024 TTE LVEF greater than 55% Biatrial enlargement mild * Assessment & Plan Note - CINTIA Gallego - 01/12/2025 3:47 PM EDT Associated Problem(s): Hyperlipidemia High intensity statin January 2024 HDL 42, cholesterol 158 * Assessment & Plan Note - CINTIA Gallego - 01/12/2025 3:47 PM EDT Associated Problem(s): ASHD (arteriosclerotic heart disease) March 09, 2023 Mid/proximal RCA PCI/Ehrenberg 4x15mm & 4x18mm Proximal diagonal PCI/Ehrenberg 2.5 x 18 mm LAD 10% Circumflex normal LVEF 65% February 2024 MPI ischemia, EF 88% Current daily activity at 4 METS without concerning symptoms * Assessment & Plan Note - CINTIA Gallego - 01/12/2025 3:46 PM EDT Associated Problem(s): Palpitations Reports fairly daily episodes of hearing my heart thumping going into my ears No prior documented A-fib or arrhythmia. Was taken off of carvedilol January 2024 hospitalization due to bradycardia * Assessment & Plan Note - CINTIA Gallego - 01/12/2025 3:46 PM EDT Associated Problem(s): Essential hypertension Optimal in office documented in this [facility] Work Phone: 1(807) 205-612203-17-2025 Evaluation + Plan note* Assessment & Plan Note - CINTIA Gallego - 01/12/2025 3:47 PM EDTAssociated Problem(s): Hyperlipidemia High intensity statin January 2024 HDL 42, cholesterol 158 [facility] Work Phone: 1(764) 148-885603-17-2025 Evaluation + Plan note* Assessment & Plan Note - CINTIA Gallego - 01/12/2025 3:47 PM EDTAssociated Problem(s): ASHD (arteriosclerotic heart disease) March 09, 2023 Mid/proximal RCA PCI/Willie 4x15mm & 4x18mm Proximal diagonal PCI/Willie 2.5 x 18 mm LAD 10% Circumflex normal LVEF 65% February 2024 MPI ischemia, EF 88% Current daily activity at 4 METS without concerning symptoms [facility] Work Phone: [phone]) 153-641803-17-2025 Evaluation + Plan note* Assessment & Plan Note - CINTIA Gallego - 01/12/2025 3:46 PM EDTAssociated Problem(s): Palpitations Reports fairly daily episodes of hearing my heart thumping going into my ears No prior documented A-fib or arrhythmia. Was taken off of carvedilol January 2024 hospitalization due to bradycardia [facility] Work Phone: 1(122) 457-416303-17-2025 Evaluation + Plan note* Assessment & Plan Note - CINTIA Gallego - 01/12/2025 3:46 PM EDTAssociated Problem(s): Essential hypertension Optimal in office [facility] Work Phone: 1([phone]) 210-639603-17-2025 History of Present illness Narrative* CINTIA Gallego - 01/12/2025 11:00 AM EDT Chief Complaint My legs are swelling up [...] through the grocery store. She is unable torecall her prior PCI symptom (did not have NSTEMI it was noted on abnormal stress test). She complains of dyspnea on exertion for approximately 3 months with activity like rushing to the garage or going outside in the cold. Her PCP started her on albuterol inhaler and does not seem to have any typeof benefit. She is an extremely difficult historian. [...] heart disease) March 09, 2023 Mid/proximal RCA PCI/Ehrenberg 4x15mm & 4x18mm Proximal diagonal PCI/Ehrenberg 2.5 x 18 mm LAD 10% Circumflex [...] Echo (RODGERS, diastolic dysfunction) Holden Rosado MSN, GEOPHYSICAL OBSERVER-DOCTOR OF DENTAL MEDICINE, PMHNP-BC [facility] [place], [place] Please excuse any errors in grammar or translation related to this dictation. Voice recognition software was utilized to prepare this document. documented in [facility] encounterWood [facility] Hospital Work Phone: 1(454) 745-306003-17-2025 Instructions* Patient Instructions* CINTIA Gallego - 01/12/2025 11:00 AM EDT [...] Echo (RODGERS, diastolic dysfunction) documented in this encounterWood [facility] Hospital Work Phone: 1(532) 364-695301-28-2025 History of Present illness Narrative* Reyna Esparza MD - 11/25/2024 2:00 PM EST Subjective Patient ID: Lashaun Joaquin is a 84 y.o. female who presents for Thyroid Nodule Pt reports she had a thyroid US after being found to be mildly hypothyroid. US shows an 11mm mixed thyroid nodule. FNA performed that was [place] 1. No family H/O thyroid CA. No radiation exposure. Review of Systems All other systems reviewed and are negative. No family history on file. Active Ambulatory Problems Diagnosis Date Noted Dry eyes 04/28/2024 Epiretinal membrane (ERM) of left eye 04/28/2024 Blepharitis of upper and lower eyelids of both eyes 04/28/2024 Abnormal cardiovascular stress test 11/24/2024 Adrenal nodule ([facility]) 11/24/2024 Anemia 11/24/2024 ASHD (arteriosclerotic heart disease) ([facility] 10/17/2023 Atrophic vaginitis 11/24/2024 BMI 33.0-33.9,adult 03/05/2024 Cervical spondylosis with radiculopathy 11/24/2024 Chronic bronchitis ([facility]) 11/24/2024 Chronic heart failure with preserved ejection fraction (HFpEF) ([facility]) 11/24/2024 Chronic obstructive pulmonary disease with (acute) exacerbation ([facility]) 11/24/2024 Chronic venous insufficiency 11/24/2024 COVID 10/17/2023 Elevated serum immunoglobulin free light chain level 11/24/2024 Essential hypertension ([facility]) 10/17/2023 Flash pulmonary edema ([facility]) 11/24/2024 Former smoker 10/17/2023 OMAR (generalized anxiety disorder) ([facility]) 11/24/2024 Gastroesophageal reflux disease with esophagitis without hemorrhage 11/24/2024 Heart failure ([facility]) 11/24/2024 Resolved Ambulatory Problems Diagnosis Date Noted No Resolved Ambulatory Problems Past Medical History: Diagnosis Date Arthritis Cataract Congestive heart failure (CHF) ([facility]) Coronary artery disease ([facility]) GERD (gastroesophageal reflux disease) Hypercholesteremia ([facility]) Hypertension ([facility]) Peripheral neuropathy Past Surgical History: Procedure Laterality [...] mouth in the morning and 10 mEq inthe evening. rosuvastatin (Crestor) 40 MG tablet Take [...] starting in late December documented in this encounterEllis Fischel Cancer [id number] Chief complaint+Reason for visit Narrative* Chief Complaint Admit Date e04.1 November 17, [...] 10:20am Thyroid nodule December 16, 2024 10:20am [facility] Work Phone: 1(416) 900-130001-20-2025 Chief complaint+Reason for visit Narrative * Chief Complaint Admit Date e04.1 November 17, 2024 9 :45am Referral Order November 19, 2024 1 2:33pm 3 month f/u-HIGH RISK December 16 10:20am UA, frequency, burning December 29, 2024 1 :19pm injured right knee yesterday January 22, 2025 9:51am Reason for Visit Admit Date Thyroid nodule November 17, 2024 9 :45am ASHD (arteriosclerotic heart disease) [facility] 2024 10:20am Chronic bronchitis December 16, 2024 [...] knee pain January 22, 2025 9:5 1am [facility] Work Phone: 1(606) 361-871201-20-2025 Evaluation note* Diagnosis Onset Date Resolution Status Admit Date Thyroid nodule acute November 172024 9:45am ASHD (arteriosclerotic heart disease) acute December 16 025 10:20am Chronic bronchitis acute Febr2024 10:20am Chronic heart failure with preserved ejection fraction (HFpEF) acute December 16 10:20am Chronic kidney disease acute [facility] 2024 10:20am Chronic venous insufficiency acute December 16, 2024 10:20am Essential hypertension acute [facility] 2024 10:20am Subclinical hypothyroidism acute December 16, 2024 10:20am Thyroid nodule acute November 292024 10:20am [facility] Work Phone: 1(681) 398-302301-20-2025 Evaluation note* Diagnosis Onset Date Resolution Status Admit Date Thyroid nodule acute November 172024 9:45am ASHD (arteriosclerotic heart disease) acute December 16 025 10:20am Chronic bronchitis acute 2024 10:20am Chronic heart failure with preserved ejection fraction (HFpEF) acute December 16 025 10:20am Chronic kidney disease acute [facility] 2024 10:20am Chronic venous insufficiency acute December 16, 2024 10:20am Essential hypertension acute [facility] 2024 10:20am Subclinical hypothyroidism acute December 16, 2024 10:20am Thyroid nodule acute November 292024 10:20am Chronic kidney disease acute [facility] 2024 9:51am Nocturnal leg cramps acute [facility] 2024 9:51am Right knee pain acute December 9:51am [facility] Work Phone: 1([phone] 532-927812-11-2024 History of Present illness Narrative* Edinson Perry, [...] diastolic heart failure. She was hospitalized at [facility] we were not involved in this. Her medications were changed, cluck carvedilol was discontinued and Entresto was initiated. She has supranormal left ventricular function with ejection fraction of 88% and normal perfusion scan February 2023. She did undergo primary PCI proximal RCA and diagonal branch in February 2023 for subsequentnon-ST elevation IN event with preserved LV function. She is [...] Attestation By signing my name below, I, Dionna Mendez LPNibchinyere attest that this documentation has been prepared [...] exam, discussion and plan. documented in this encounterWood [facility] Hospital Work Phone: 1(575) 249-294212-11-2024 Instructions* Patient Instructions* Racquel Olivera LPN - [...] Provided instructions on exercise. documented in [facility] encounterWood [facility] Hospital Work Phone: 1(511) 345-846111-14-2024 Evaluation note* Diagnosis Onset Date Resolution Status Admit Date Anemia acute September 11, 2024 10:16am ASHD (arteriosclerotic heart disease) acute September 11 024 10:16am Chronic bronchitis acute Novemb er 2023 10:16am Chronic heart failure with preserved ejection fraction (HFpEF) acute September 11 10:16am Chronic venous insufficiency acute September 11, 2024 10:16am Essential hypertension acute No vember 2023 10:16am OMAR (generalized anxiety disorder) a cute September 11, 2024 10:16am Hypercholesterolemia acute Nove mber 2023 10:16am Subclinical hypothyroidism acute September 11, 2024 10:16am [facility] Work Phone: [phone] [id number] Evaluation note* Diagnosis Onset Date Resolution Status [...] cute September 11, 2024 10:16am Hypercholesterolemia acute Nov mber 2023 10:16am Subclinical hypothyroidism acute September 11, 2024 10:16am Thyroid nodule acute November 172024 9:45am [facility] Work Phone: [phone]) 507-499506-25-2024 Evaluation + Plan note* Assessment & Plan Note - CINTIA Gallego - 04/22/2024 11:58 AM EDTAssociated Problem(s): BMI 32.0-32.9,adult Reviewed the merits of healthy lifestyle choices on overall cardiovascular health. [facility] Work Phone: [phone]) 663-323006-25-2024 Evaluation + Plan note* Assessment & Plan Note - CINTIA Gallego - 04/22/2024 11:58 AM EDTAssociated Problem(s): Hyperlipidemia High intensity statin January 2024 HDL 42, cholesterol 158 [facility] Work Phone: [phone]) 716-853506-25-2024 Evaluation + Plan note* Assessment & Plan Note - CINTIA Gallego - 04/22/2024 11:58 AM EDTAssociated Problem(s): Essential hypertension Optimal in the office [facility] Work Phone: [phone]) 145-207806-25-2024 Evaluation + Plan note* Assessment & Plan Note - CINTIA Gallego - 04/22/2024 11:58 AM EDTAssociated Problem(s): ASHD (arteriosclerotic heart disease) March 09, 2023 Mid/proximal RCA PCI/Ehrenberg 4x15mm & 4x18mm Proximal diagonal PCI/Willie 2.5 x 18 mm LAD 10% Circumflex normal LVEF 65% February 2024 MPI ischemia, EF 88% Current daily activity at 4 METS without concerning symptoms [facility] Work Phone: [phone] 730-106506-25-2024 Miscellaneous Notes* Assessment & Plan Note - [...] heart disease) March 09, 2023 Mid/proximal RCA PCI/Ehrenberg 4x15mm & 4x18mm Proximal diagonal PCI/Willie 2.5 x 18 mm LAD 10% Circumflex normal LVEF 65% February 2024 MPI ischemia, EF 88% Current daily activity at 4 METS without concerning symptoms documented in this [facility] Work Phone: 1(273) 118-401106-24-2024 History of Present illness Narrative* CINTIA Gallego [...] heart disease) March 09, 2023 Mid/proximal RCA PCI/Ehrenberg 4x15mm & 4x18mm Proximal diagonal PCI/Ehrenberg 2.5 x 18 mm LAD 10% Circumflex [...] Dr. Perry 6 months Holden Rosado MSN, GEOPHYSICAL OBSERVER-DOCTOR OF DENTAL MEDICINE, PMHNP-[facility] Please excuse any errors in grammar or translation related to this dictation. Voice recognition software was utilized to prepare this document. documented in this [facility] Work Phone: 1(165) 915-446106-24-2024 Instructions* Patient Instructions* CINTIA Gallego - 04/21/2024 [...] Dr. Perry 6 months [facility]: [phone]) 269-223805-09-2024 Evaluation + Plan note* Assessment & Plan Note - CINTIA Gallego - 03/06/2024 10:42 AM EDTAssociated Problem(s): BMI 32.0-32.9,adult Reviewed the merits of healthy lifestyle choices on overall cardiovascular health. [facility] Work Phone: [phone]) [phone] Evaluation + Plan note* Assessment & Plan Note - CINTIA Gallego - 03/06/2024 10:42 AM EDTAssociated Problem(s): Hyperlipidemia High intensity statin January 2024 HDL 42, cholesterol 158 [facility] Work Phone: [phone]) 114-642505-09-2024 Miscellaneous Notes* Assessment & Plan Note - [...] Circumflex normal LVEF 65% [facility]: 1([phone]) 824-869405-09-2024 Evaluation + Plan note* Assessment & Plan Note - CINTIA Gallego - 03/06/2024 10:41 AM EDTAssociated Problem(s): Essential hypertension Optimal in office [facility] Work Phone: [phone] Evaluation + Plan note* Assessment & Plan Note - CINTIA Gallego - 03/06/2024 10:41 AM EDTAssociated Problem(s): ASHD (arteriosclerotic heart disease) March 09, 2023 Mid/proximal RCA PCI/Ehrenberg 4x15mm & 4x18mm Proximal diagonal PCI/Ehrenberg 2.5 x 18 mm LAD 10% Circumflex normal LVEF 65% [facility] Work Phone: [phone] 749-558105-08-2024 History of Present illness Narrative* CINTIA Gallego - 03/05/2024 11:30 AM EDT Chief Complaint I am just not feeling good Reason for Visit Patient presents to the office today for outpatient follow-up for hospital follow-up. Last evaluated in clinic by Dr. Perry September 2023. January 2024: Hospitalized at [facility] due to accelerated hypertension and bradycardia. She was seen by [facility]. Inpatient echo showed EF greater than [...] heart disease) March 09, 2023 Mid/proximal RCA PCI/Ehrenberg 4x15mm & 4x18mm Proximal diagonal PCI/Willie 2.5 [...] contact the office if new symptoms arise. NURSING ADMIN after testing Holden Rosado MSN, GEOPHYSICAL OBSERVER-DOCTOR OF DENTAL MEDICINE, PMHNP-[facility] Please excuse any errors in grammar or translation related to this dictation. Voice recognition software was utilized to prepare this document. documented in this [facility] Work Phone: 1([phone]) 980-796105-08-2024 Instructions* Patient Instructions* CINTIA Gallego - 03/05/2024 [...] contact the office if new symptoms arise. NURSING ADMIN after testing [facility] Work Phone: [phone]) 113-266201-30-2024 Evaluation note* Encounter Date Diagnosis Assessment Notes Treatment Notes Treatment Clinical Notes Oct, Primary insomnia (ICD-10 - F51.01) [facility] Other 01-08-2024 NoteHNO ID: [id number] Author: PAOLO CASILLAS APRN.DANIELA Service: ? Author [...] reactive to light, ext (more content not included)...[facility]01-05-2024 Evaluation note* Encounter Date Diagnosis Assessment Notes [...] in remission (ICD-10 - F17.211) Continue abstinence [facility] Other 12-05-2023 Evaluation note* Encounter Date Diagnosis [...] and feet daily for blisters and ulcerations. [facility] Other 11-29-2023 Evaluation note* Encounter Date Diagnosis Assessment Notes Treatment Notes Treatment Clinical Notes Aug, Chronic venous insufficiency (ICD-10 - I87.2) [facility] Other 11-24-2023 Evaluation note* Encounter Date Diagnosis Assessment Notes Treatment Notes Treatment Clinical Notes Aug, Subacute cough (ICD-10 - R05.2) Aug, Dyspnea on exertion (ICD-10 - R06.09) [facility] Other 11-20-2023 Evaluation note* Encounter Date Diagnosis Assessment Notes Treatment Notes Treatment Clinical Notes Aug, Chronic venous insufficiency (ICD-10 - I87.2) [facility] Other 11-16-2023 Evaluation note* Encounter Date Diagnosis Assessment Notes Treatment Notes Treatment Clinical Notes 16 Nov, 2023 Chronic venous insufficiency (ICD-10 - I87.2) [facility] Other 11-14-2023 Evaluation note* Encounter Date Diagnosis Assessment Notes Treatment Notes Treatment Clinical Notes Aug, Acute bronchitis due to other specified organisms (ICD-10 - J20.8) Instructed to use Robitussin or Mucinex for cough, saline or Flonase NS for congestion, Tylenol for pain and fever. Aug, Chronic obstructive pulmonary disease with (acute) exacerbation (ICD-10 - J44.1) Begin using EDEL as needed to mobilize secretions. [facility] Other 10-19-2023 Evaluation note* Encounter Date Diagnosis Assessment Notes Treatment Notes Treatment Clinical Notes Jul, Aphthous ulcer (ICD-10 - K12.0) [facility] Other 09-20-2023 Evaluation note* Encounter Date Diagnosis Assessment Notes Treatment Notes Treatment Clinical Notes Jun, Dysuria (ICD-10 - R30.0) [facility] Other 09-19-2023 Evaluation note* Encounter Date Diagnosis Assessment Notes Treatment Notes Treatment Clinical Notes Jun, Dysuria (ICD-10 - R30.0) [facility] Other 08-28-2023 Evaluation note* Encounter Date Diagnosis Assessment Notes Treatment Notes Treatment Clinical Notes May, Chronic venous insufficiency (ICD-10 - I87.2) [facility] Other 08-24-2023 Evaluation note* Encounter Date Diagnosis Assessment Notes Treatment Notes Treatment Clinical Notes May, Primary insomnia (ICD-10 - F51.01) [facility] Other 08-21-2023 Evaluation note* Encounter Date Diagnosis Assessment Notes Treatment Notes Treatment Clinical Notes May, Diastolic hypertension (ICD-10 - I10) [facility] Other 08-18-2023 Evaluation note* Encounter Date Diagnosis Assessment Notes Treatment Notes Treatment Clinical Notes May, Primary hypertension (ICD-10 - I10) [facility] Other 08-18-2023 Evaluation note* Encounter Date Diagnosis Assessment Notes Treatment Notes Treatment Clinical Notes May, Diastolic hypertension (ICD-10 - I10) [facility] Other 08-11-2023 Evaluation note* Encounter Date Diagnosis [...] and feet daily for blisters and ulcerations. [facility] Other 08-09-2023 Miscellaneous Notes* Telephone Encounter - [...] further discuss then. documented in this encounter[facility]23 NoteHNO ID: [id number] Author: Luis Mckenzie MD Service: ? Author [...] shortness of breath and was hospitalized at [facility] and treated for suspected pneumonia. Apparently it was later felt she had heart disease, and cardiac catheterization revealed severe coronary artery disease. She subsequently underwent stent placement at [facility]. Apparently her shortness of breath persisted, and [...] extremities and face. Ne (more content not included)...[facility]08-07-2023 History of Present illness Narrative* Luis Mckenzie [...] shortness of breath and was hospitalized at [facility] and treated for suspected pneumonia. Apparently it was later felt she had heart disease, and cardiac catheterization revealed severe coronary artery disease. She dumont bsequently underwent stent placement at [facility]. Apparently her shortness of breath persisted, and [...] shortness of breath and was hospitalized at [facility] treated for suspected pneumonia. Apparently it was later felt she had heart disease, and cardiac catheterization revealed severe coronary artery disease. She subsequently underwent stent placement at [facility]. April 2023 she developed severe shortness of breath and was hospitalized at [facility] 05/17/2023with CHF. She improved with diuresis but [...] CC: Dr. Perry documented in this encounterOhio[facility]07-28-2023 Evaluation note* Encounter Date Diagnosis Assessment Notes [...] dependence, cigarettes, in remission (ICD-10 - F17.211) [facility] Other 07-21-2023 Discharge summary Author Lj Ryan [facility] May 18, 2023 11:44am Note Date/Time May 18, 2023 11:4 4am [facility] [address] [place] [address] Discharge Summary Signed Patient: Lashaun Joaquin MR#: [id number] : 1940 Acct:[id number] Age/Sex: 82 / F Adm Date: 3 Loc: Room: [address] [place] [address]: Lj Ryan DO Copies to: [...] % (Auto) 73.6, Lymph % (Auto) 15.1, [place] % (Auto) 8.7, Eos % (Auto) 1.9, Baso % (Auto) 0.7, Nucleat RBC Rel Count 0.1, Neut # (Auto) 4.4, Lymph # (Auto) 0.9 L, [place] # (Auto) 0.5, Eos # (Auto) 0.1, [...] signed by Lj Ryan DO> 05/18/23 1144 [facility] Work Phone: 1(348) [phone] History and physical note Author Lj Ryan [facility] May 17, 2023 3:56pm Note Date/Time May 17, 2023 3:49 pm [facility] [address] [place] [address] Hospitalist H&P Signed Patient: Lashaun Joaquin MR#: [id number] : 1940 Acct:[id number] Age/Sex: 82 / F Adm Date: 3 Loc: Room: [address] [place] [address] Type: ADM INOo Attending Dr: Lj Ryan DO Copies to: DO Lj Prado, DO~ HPI DATE OF EXAMINATION: 05/17/23 CHIEF [...] unless noted below or in HPI [facility] Medical History (Updated 05/17/23 @ 15:50 [...] % (Auto) 9.3 % (.) 05/17/23 10:25 [place] % (Auto) 5.5 % (.) 05/17/23 10:25 Eos % (Auto) 0.5 % (.) 05/17/23 10:25 Baso % (Auto) 0.5 % (.) 05/17/23 10:25 Nucleat RBC Rel Count 0.0 /100 WBC (0-0.5) 05/17/23 10:25 Neut # (Auto) 8.6 x10E3/uL (1.8-7.7) H 05/17/23 10:25 Lymph # (Auto) 1.0 x10E3/uL (1.00-4.8) 05/17/23 10:25 [place] # (Auto) 0.6 x10E3/uL (0.0-0.8) 05/17/23 10:25 [...] <Electronically signed by Lj Ryan DO> 05/17/23 1558 [facility] Work Phone: [phone]) 579-127807-19-2023 Evaluation note* Encounter Date Diagnosis Assessment Notes [...] [BMI ] 33.0-33.9, adult (ICD-10 - Z68.33) [facility] Other 07-12-2023 Evaluation note* Encounter Date Diagnosis [...] dependence, cigarettes, in remission (ICD-10 - F17.211) [facility] Other 06-29-2023 Evaluation note* Encounter Date Diagnosis Assessment Notes Treatment Notes Treatment Clinical Notes Mar, Paronychia of finger of right hand (ICD-10 - L03.011) [facility] Other 06-29-2023 Evaluation note* Encounter Date Diagnosis [...] healthy diet. Mar, Paresthesias (ICD-10 - R20.2) [facility] Other 06-21-2023 Evaluation note* Encounter Date Diagnosis [...] post PCI/stent placement. Continue for 12 months [facility] Other 06-21-2023 Evaluation note* Encounter Date Diagnosis Assessment Notes Treatment Notes Treatment Clinical Notes Mar, Chronic bronchitis, simple (ICD-10 - J41.0) [facility] Other 05-30-2023 Evaluation note* Encounter Date Diagnosis Assessment Notes Treatment Notes Treatment Clinical Notes February, Paresthesias (ICD-10 - R20.2) [facility] Other 05-18-2023 Evaluation note* Encounter Date Diagnosis [...] Titrate Gabapentin and monitor for fluid retention [facility] Other 05-08-2023 Evaluation note* Encounter Date Diagnosis Assessment Notes Treatment Notes Treatment Clinical Notes February, Primary hypertension (ICD-10 - I10) February, Chronic venous insufficiency (ICD-10 - I87.2) [facility] Other 04-19-2023 Evaluation note* Encounter Date Diagnosis [...] pain, change in appetite or bowel habits [facility] Other 04-16-2023 Evaluation note* Encounter Date Diagnosis [...] chronic diastolic heart failure (ICD-10 - I50.33) [facility] Other 04-07-2023 Evaluation note* Encounter Date Diagnosis [...] Diet and exercise with continued statin therapy. [facility] Other 02-23-2023 Evaluation note* Encounter Date Diagnosis Assessment Notes Treatment Notes Treatment Clinical Notes Nov, Primary insomnia (ICD-10 - F51.01) [facility] Other 02-16-2023 Evaluation note* Encounter Date Diagnosis [...] mammogram for breast cancer (ICD-10 - Z12.31) [facility] Other 02-06-2023 NoteHNO ID: [id number] Author: Luis Mckenzie MD Service: ? Author [...] respiratory effort, and percussion. (more content not included)...[facility]02-06-2023 History of Present illness Narrative* Luis Mckenzie MD - 12/04/2022 8:20 AM EST PATIENT NAME: Lashaun Joaquin DATE: 12/04/2022 PRIMARY CARE PHYSICIAN: Nathan aHthaway DO Portions of this encounter note have [...] Luis Mckenzie MD documented in this encounterOhio[facility]01-17-2023 Evaluation note* Encounter Date Diagnosis Assessment Notes [...] or drinking prior to bedtime. Weight loss. [facility] Other 11-01-2022 Miscellaneous Notes* Telephone Encounter - [...] November MARBIN Freeman documented in this encounterOhio[facility]10-31-2022 History of Present illness Narrative* Nancy Andrade [...] 2022 12:49 PM documented in this encounterOhiohealth [facility]08-01-2022 History of Present illness Narrative* Luis Mckenzie [...] PCP. Luis Mckenzie MD [facility] Narrative - Reported * LASHAUN JOAQUIN is being seen for a consultation for abnormal test(s) results. * 82-year-old female seen in cardiology consultation at the request of Dr. Natalio hathaway for recent episode of respiratory distress, what sounds like congestive heart failure associated with accelerated hypertension, was admitted to [facility] briefly, diuresed approximately 14 pounds with diuretics. [...] and proceed with heart cath this Sunday [facility] [address] DO Work Phone: Evaluation note* Diagnosis Abnormal SPEP- Primary Other nonspecific findings on examination of blood Neuropathy - (NOS) 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 Lung nodules Other nonspecific abnormal finding of lung field documented in this encounter [facility]* Diagnosis Abnormal SPEP- Primary Other nonspecific findings on examination of blood Neuropathy - (NOS) Lung nodules Other nonspecific abnormal finding of lung field documented in this encounter [facility]Eval[facility] noteNo InformationNofreeman [facility] [employer] Other Evaluation noteNo assessment information available [facility] Work Phone: Evaluation note* Diagnosis Onset Date Resolution Status Flash pulmonary edema acute Heart failure acute Hypertension acute Hypertensive emergency acute Hypoxia acute [facility] Work Phone: Evaluation note* Diagnosis Abnormal SPEP- Primary Other nonspecific findings on examination of blood Anemia, unspecified type Neuropathy - (NOS) Heart disease Heart disease, unspecified documented in this encounter [facility] Center[facility]* Diagnosis Onset Date Resolution Status ASHD (arteriosclerotic heart disease) acute Chronic diastolic heart failure acute Chronic venous insufficiency acute Elevated cholesterol acute Essential hypertension acute OMAR (generalized anxiety disorder) acute Gastroesophageal reflux dise ase with esophagitis without hemorrhage acute 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 [facility] Work Phone: Evaluation note* Diagnosis Onset [...] tube dysfunction acute Right otitis media acute [facility] Work Phone: Evaluation note* Diagnosis ASHD (arteriosclerotic heart disease)- Primary Coronary atherosclerosis of unspecified type of vessel, [place] or graft Essential hypertension Unspecified essential hypertension Mixed hyperlipidemia BMI 32.0-32.9,adult documented in this encounter [facility] Work Phone: Evaluation note* Diagnosis Onset [...] (generalized anxiety disorder) acute Subclinical hypothyroidism a [facility] Work Phone: Evaluation note* Diagnosis ASHD (arteriosclerotic heart disease) Coronary atherosclerosis of unspecified type of vessel, [place] or graft documented in this encounter [facility] Work Phone: Evaluation note* Diagnosis Onset Date Resolution Status Anemia acute ASHD (arteriosclerotic heart disease) acute Chronic diastolic heart failure acute Chronic venous insufficiency acute Essential hypertension acute OMAR (generalized anxiety disorder) acute Subclinical hypothyroidism a [facility] Work Phone: Evaluation note* Diagnosis 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 Lung nodules Other nonspecific abnormal finding of lung field documented in this encounter [facility]* Diagnosis Onset Date Resolution Status Admit Date Anemia acute September 11, 2024 10:16am ASHD (arteriosclerotic heart disease) acute September 11 024 10:16am Chronic bronchitis acute Novemb er 2023 10:16am Chronic heart failure with preserved ejection fraction (HFpEF) acute September 11 10:16am Chronic venous insufficiency acute September 11, 2024 10:16am Essential hypertension acute No vember 2023 10:16am OMAR (generalized anxiety disorder) a cute September 11, 2024 10:16am Hypercholesterolemia acute Nove mber 2023 10:16am Subclinical hypothyroidism acute September 11, 2024 10:16am [facility] Work Phone: Evaluation note* Diagnosis Essential hypertension- Primary Unspecified essential hypertension ASHD (arteriosclerotic heart disease) Coronary atherosclerosis of unspecified type of vessel, [place] or graft Mixed hyperlipidemia BMI 32.0-32.9,adult documented in this encounter [facility] Work Phone: Evaluation note* Diagnosis ASHD (arteriosclerotic heart disease)- Primary Coronary atherosclerosis of unspecified type of vessel, [place] or graft Essential hypertension Unspecified essential hypertension Mixed hyperlipidemia BMI 32.0-32.9,adult Essential hypertension- Primary Unspecified essential hypertension ASHD (arteriosclerotic heart disease) Coronary atherosclerosis of unspecified type of vessel, [place] or graft Mixed hyperlipidemia BMI 32.0-32.9,adult ASHD (arteriosclerotic heart disease) Coronary atherosclerosis of unspecified type of vessel, [place] or graft Essential hypertension Unspecified essential hypertension BMI 33.0-33.9,adult Former smoker Personal history of tobacco use, presenting hazards to health S/P PTCA (percutaneous transluminal coronary angioplasty) Postsurgical percutaneous transluminal coronary angioplasty status Mixed hyperlipidemia Coronary arteriosclerosis after percutaneous transluminal coronary angioplasty (PTCA) documented in this encounter [facility] Work Phone: Evaluation note* Diagnosis Thyroid nodule (CMS/HCC)- Primary Nontoxic uninodular goiter documented in this encounter [facility] HealthcareEvaluation note* Diagnosis ASHD (arteriosclerotic heart disease)- Primary Coronary atherosclerosis of unspecified type of vessel, [place] or graft Essential hypertension Unspecified essential hypertension Mixed hyperlipidemia BMI 32.0-32.9,adult Essential hypertension- Primary Unspecified essential hypertension ASHD (arteriosclerotic heart disease) Coronary atherosclerosis of unspecified type of vessel, [place] or graft Mixed hyperlipidemia BMI 32.0-32.9,adult BMI 33.0-33.9,adult- Primary Essential hypertension Unspecified essential hypertension Palpitations ASHD (arteriosclerotic heart disease) Coronary atherosclerosis of unspecified type of vessel, [place] or graft Mixed hyperlipidemia documented in this encounter [facility] Work Phone: Evaluation note* Diagnosis Nontoxic multinodular goiter (CMS/HCC)- Primary Nontoxic multinodular goiter documented in this encounter [facility] HealthcareEvaluation note* Diagnosis ASHD (arteriosclerotic heart disease)- Primary Coronary atherosclerosis of unspecified type of vessel, [place] or graft Essential hypertension Unspecified essential hypertension Mixed hyperlipidemia BMI 32.0-32.9,adult Essential hypertension- Primary Unspecified essential hypertension ASHD (arteriosclerotic heart disease) Coronary atherosclerosis of unspecified type of vessel, [place] or graft Mixed hyperlipidemia BMI 32.0-32.9,adult BMI 33.0-33.9,adult- Primary Essential hypertension Unspecified essential hypertension Palpitations ASHD (arteriosclerotic heart disease) Coronary atherosclerosis of unspecified type of vessel, [place] or graft Mixed hyperlipidemia Essential hypertension Unspecified essential hypertension Palpitations documented in this encounter [facility] Work Phone: History general Narrative - [...] Colonoscopy 2012 Hospitalization History see surgical history [facility] Other History general Narrative - Reported* Type [...] diagonal br Hospitalization History see surgical history [facility] Other Hospital Discharge instructions Additional Instructions Please [...] to control your blood pressure in the hospital.[facility] Work Phone: Hospital Discharge instructionsAmbulatory Orders* Referral to ENT Time Frame: 11/19/24, Location: None [facility] Work Phone: Reason for referral (narrative)* Consultation (Routine) - Authorized Specialty Diagnoses / Procedures Referred By Contac t Referred To Contact Cardiology Diagnoses ASHD (arteriosclerotic heart disease) Procedures Follow Up In Cardiology Holden Rosado APRN-CNP [address] [facility] [address], [address] [address] Referral ID Status Reason Start Date Expiration Date V isits Requested Visits Authorized [id number] Authorized 03/05/2024 03/05/2025 1 1 * Cardiac Stress Testing (Routine) - Pending Review Specialty Diagnoses / Procedures Referred By Isabelle t Referred To Contact Radiology Diagnoses ASHD (arteriosclerotic heart disease) Procedures Nuclear Stress Test CHG MYOCARDIAL SPECT MULTIPLE STUDIES Holden Rosado APRN-CNP [address] [place] [address], [address] [address] Referral ID Status Reason Start Date Expiration Date V isits Requested Visits Authorized [id number] Pending Review 03/05/2024 03/05/2025 5 5 [facility] Work Phone: Reefds for referral (narrative)* Consultation (Routine) - Authorized Specialty Diagnoses / Procedures Referred By Contac t Referred To Contact Cardiology Diagnoses ASHD (arteriosclerotic heart disease) Procedures Follow Up In Cardiology Holden Rosado APRN-CNP [facility] [facility] 2, [address] [address] Referral ID Status Reason Start Date Expiration Date V isits Requested Visits Authorized [id number] Authorized 04/21/2024 04/21/2025 1 1 [facility] Work Phone: Reason for referral (narrative)No reason for referral information [facility]: Reason for visit Narrative* CV Imaging (Routine) - Authorized Specialty Diagnoses / Procedures Referred By Contac t Referred To Contact Cardiology Diagnoses Essential hypertension Palpitations Procedures Transthoracic Echo Complete HI ECHO TTHRC R-T 2D W/WOM-MODE COMPL SPEC&COLR D Holden Rosado APRN-DOCTOR OF DENTAL MEDICINE [facility] 2, [address] [address] Phone: tel: fax: Referral ID Status Reason Start Date Expiration Date Visits Requested Visits Authorized [id number] Authorized Perform Procedure 01/12/2025 01/12/2026 1 1 [facility] Work Phone: Advance Directives Documents on File Type Date Recorded Patient Film Reader Expl anation Advance Directive(s) 08/01/2021 12:55 PM A dvance Directives Documents on File Type Date Recorded Patient Film Reader Expl anation Advance Directive(s) 08/01/2021 12:55 PM [...] COMPUTED TOMOGRAPHY THORAX W/CONTRAST Luis Mckenzie MD [address] [place] [address] [place] [address] Ct Imaging Referral ID Status Reason Start Date Expiration Date Visits Requested Visits Authorized [id number] Authorized Auto-Generat ed Referral 05/29/2022 06/28/2023 1 1 Specialty Diagnoses / Procedures Referred By Contac t Referred To Contact CT IMAGING Diagnoses Disorder of adrenal gland (HCC) Procedures CT ABD/PEL W IVCON CT ABD & PELVIS W/CONTRAST Luis Mckenzie MD [address] [place] [address] [place] [address] Ct Imaging Referral ID Status Reason Start Date Expiration Date Visits Requested Visits Authorized [id number] Authorized Auto-Generat ed Referral 05/29/2022 06/28/2023 1 1 Specialty Diagnoses / Procedures Referred By Contac t Referred To Contact Radiology Diagnoses ASHD (arteriosclerotic heart disease) Procedures Nuclear Stress Test CHG MYOCARDIAL SPECT MULTIPLE STUDIES Holden Rosado, GEOPHYSICAL OBSERVER-DOCTOR OF DENTAL MEDICINE [facility] [facility], [address] [place] [address] Referral ID Status Reason Start Date Expiration Date V isits Requested Visits Authorized [id number] Pending Review 03/05/2024 03/05/2025 5 5 Specialty Diagnoses / Procedures [facility]ING Diagnoses Lung nodules Procedures CT CHEST W IVCON DIAGNOSTIC COMPUTED TOMOGRAPHY THORAX W/CONTRAST Luis Mckenzie MD [address] [place] [address] [place] [address] Ct Imaging [id number] Referral ID Status Reason Start Date Expiration Date V isits Requested Visits Authorized [id number] Closed Auto-Generate d Referral 05/29/2022 06/28/2023 1 1 Specialty Diagnoses / Procedures [facility] Ref[facility] To Contact CT IMAGING Diagnoses Disorder of adrenal gland (HCC) Procedures CT ABD/PEL W IVCON CT ABD & PELVIS W/CONTRAST Luis Mckenzie MD [address] [place] [address] [place] [address] [place] [address] Referral ID Status Reason Start Date Expiration Date V isits Requested Visits Authorized [id number] Closed Auto-Generate d Referral 05/29/2022 06/28/2023 1 [...] neoplasm of lung Unknown Exposure to Agent [place] Unknown brother Malignant neoplasm of colon Unknown [...] neoplasm of lung Unknown Exposure to Agent [place] Unknown brother Malignant neoplasm of colon Unknown [...] neoplasm of lung Unknown Exposure to Agent [place] Unknown brother Malignant neoplasm of colon Unknown [...] Thyroid nodule November 17, 2024 9 :45am Chief Complaint Admit Date UA, frequency, burning December 29, 2024 1 :19pm injured right knee yesterday January 22, 2025 9:51am SOB February 12, 2025 6:2 0am Check Up March 13, 2025 1:04p m 3 month f/u-HIGH RISK March 19, 2025 11: 21am Reason for Visit Admit Date Chronic kidney disease January 22, 2025 9:51am Nocturnal leg cramps January 22, 2025 9: 51am Right knee pain January 22, 2025 9:5 1am ASHD (arteriosclerotic heart disease) Ma y 2024 1:04pm Chronic bronchitis March 13, 2025 1:04p m 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) March 13, 2025 1:04pm Chronic venous insufficiency March 13, 2 025 1:04pm Subclinical hypothyroidism March 13 1:04pm ASHD (arteriosclerotic heart disease) Ma y 2024 11:21am Chronic bronchitis March 19, 2025 11:21 am 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) March 19, 2025 11:21am Chronic kidney disease March 19, 2025 11 :21am Chronic venous insufficiency March 19, 2 025 11:21am Essential hypertension March 19, 2025 11 :21am Subclinical hypothyroidism March 19 11:21am Thyroid nodule March 19, 2025 11:21 am Chief Complaint Admit Date Check Up March 13, 2025 1:04p m 3 month f/u-HIGH RISK March 19, 2025 11: 21am ear pain, chest burning, cough April 3:17pm Reason for Visit Admit Date ASHD (arteriosclerotic heart disease) Ma y 2024 1:04pm Chronic bronchitis March 13, 2025 1:04p m Chronic heart failure with preserved eje ction fraction (HFpEF) March 13, 2025 1:04pm Chronic venous insufficiency March 13, 2 025 1:04pm Subclinical hypothyroidism March 13 1:04pm ASHD (arteriosclerotic heart disease) Ma y 2024 11:21am Chronic bronchitis March 19, 2025 11:21 am Chronic kidney disease March 19, 2025 11 :21am Chronic venous insufficiency March 19, 2 025 11:21am Essential hypertension March 19, 2025 11 :21am Hypercholesterolemia March 19, 2025 11:2 1am Obesity March 19, 2025 11:21 am Subclinical hypothyroidism March 19 11:21am Thyroid nodule March 19, 2025 11:21 am Acute on chronic heart failu re with preserved ejection fraction (HFpEF) March 19, 2025 11:21am Chief Complaint Admit Date ear pain, chest burning, cough April 3:17pm wellness/3 mo f/u June 19, 2025 9: 23am Reason for Visit Admit Date Acute bronchitis due to other specified organisms May 19, 2025 3:17pm Acute exacerbation of chronic obstructiv e airways disease May 19, 2025 3:17pm ASHD (arteriosclerotic heart disease) Au aminata 2024 9:23am Chronic bronchitis June 19, 2025 [...] visit, subseque nt June 19, 2025 9:23am Additional Source Comments Source Comments (unrecognize d section and content) In the event this informatio n is protected by the Federal Confidentiality of Alcohol and Drug Abuse Patient Records regulations: The Federal rules restrict any use of the information to criminally investigate or prosecute any alcohol or drug abuse patient.[facility] the event this information is protected by the Federal Confidentiality of Alcohol and Drug Abuse Patient Records regulations: The Federal rules restrict any use of the information to criminally investigate or prosecute any alcohol or drug abuse patient.[facility] Center[facility] the event this information is protected by the Federal Confidentiality of Alcohol and Drug Abuse Patient Records regulations: The Federal rules restrict any use of the information to criminally investigate or prosecute any alcohol or drug abuse patient.[facility] Center[facility] the event this information is protected by the Federal Confidentiality of Alcohol and Drug Abuse Patient Records regulations: The Federal rules restrict any use of the information to criminally investigate or prosecute any alcohol or drug abuse patient.[facility] Center[facility] the event this information is protected by the Federal Confidentiality of Alcohol and Drug Abuse Patient Records regulations: The Federal rules restrict any use of the information to criminally investigate or prosecute any alcohol or drug abuse patient.[facility] Center[facility] the event this information is protected by the Federal Confidentiality of Alcohol and Drug Abuse Patient Records regulations: The Federal rules restrict any use of the information to criminally investigate or prosecute any alcohol or drug abuse patient.[facility] Center[facility] the event this information is protected by the Federal Confidentiality of Alcohol and Drug Abuse Patient Records regulations: The Federal rules restrict any use of the information to criminally investigate or prosecute any alcohol or drug abuse patient.[facility] Reason for Visit (unrecogniz ed section and content) Reason Comments Lab Orders Reason Comments abnormal spep Reason Comments Results Reason Comments Abnormal SPEP Reason Comments Follow-up bradycardia Specialty Diagnoses / Procedures Referred By Isabelle t Referred To Contact Radiology Diagnoses ASHD (arteriosclerotic heart disease) Procedures Nuclear Stress Test CHG MYOCARDIAL SPECT MULTIPLE STUDIES Holden Rosado, GEOPHYSICAL OBSERVER-DOCTOR OF DENTAL MEDICINE [facility] 2, [address] [address] Referral ID Status Reason Start Date Expiration Date V isits Requested Visits Authorized [id number] Pending Review 03/05/2024 03/05/2025 [address] Specialty Diagnoses / Procedures Referred By Isabelle t Referred To Contact CT IMAGING Diagnoses Lung nodules Procedures CT CHEST W IVCON DIAGNOSTIC COMPUTED TOMOGRAPHY THORAX W/CONTRAST Luis Mckenzie MD [address] [place] [address] [place] [address] [place] [address] Referral ID Status Reason Start Date Expiration Date V isits Requested Visits Authorized [id number] Closed Auto-Generate d Referral 05/29/2022 06/28/2023 1 1 Reason Comments Follow-up Test resultx Specialty Diagnoses / Procedures Referred By Contac t Referred To Contact Cardiology Diagnoses ASHD (arteriosclerotic heart disease) Procedures Follow Up In Cardiology Edinson Perry DO [facility] [facility] [address], [address] [place] [id number] Holden Rosado GEOPHYSICAL OBSERVER-DOCTOR OF DENTAL MEDICINE [facility], [address] [address] Referral ID Status Reason Start Date Expiration Date V isits Requested Visits Authorized [id number] Authorized 10/17/2023 10/16/2024 1 1 Reason Comments Follow-up 6 month Specialty Diagnoses / Procedures Referred By Contac t Referred To Contact Cardiology Diagnoses ASHD (arteriosclerotic heart disease) Procedures Follow Up In Cardiology Holden Rosado, GEOPHYSICAL OBSERVER-DOCTOR OF DENTAL MEDICINE [facility], [address] [address] Phone: tel: fax: Referral ID Status Reason Start Date Expiration Date V isits Requested Visits Authorized [id number] Authorized 04/21/2024 04/21/2025 1 1 Reason Onset Date Comments Med Refill 10/09/2024 Reason Comments Thyroid Nodule Specialty Diagnoses / Procedures Referred By Contac t Referred To Contact Otolaryngology Diagnoses Nontoxic single thyroid nodule (CMS/HCC) Procedures HI UNLISTED EVALUATION AND MANAGEMENT SERVICE Nathan Hathaway MD [address] [place] [address] Phone: tel: Reyna Esparza MD [address] [facility] [address] [place] [address] Phone: tel: fax: Referral ID Status Reason Start Date Expiration Date Visits Re quested Visits Authorized [id number] Closed 11/19/2024 05/18/2025 1 1 Reason Comments Follow-up 6 months Follow up f or Coronary Artery Disease Specialty Diagnoses / Procedures Referred By Contac t Referred To Contact Cardiology Diagnoses Essential hypertension Procedures Follow Up In Cardiology Edinson Perry DO [facility] 2, [address] [address] Phone: tel: fax: Holden Rosado, GEOPHYSICAL OBSERVER-DOCTOR OF DENTAL MEDICINE [facility], [address] [address] Phone: tel: fax: Referral ID Status Reason Start Date Expiration Date V isits Requested Visits Authorized [id number] Authorized 10/08/2024 10/08/2025 1 1 Reason Comments [...] Team Status: Active Member Role Status Hortencia aHthaway DO Primary Care Provide r, Attending Provider Active Start: May 20, 2024 Team Status: Inactive Member Role Status Hortencia Hathaway , DO Primary Care Provide r, Attending Provider Active Start: June 03, 2024 End: June 03, 2024 Team Status: Inactive Member Role Status Hortencia Hathaway , DO Primary Care Provider Active Start: March [...] February 01, 2024 End: February 01, 2024 Advertising Display Rotator Relationship Specialty Start Date End Date Nathan Hathaway DO PCP - General Internal Medicine 01/31/12 Advertising Display Rotator Relationship Specialty Start Date End Date Nathan Hathaway DO PCP - General Internal Medicine 01/31/12 Advertising Display Rotator Relationship Specialty Start Date End Date Nathan Hathaway DO PCP - General Internal Medicine 01/31/12 Advertising Display Rotator Relationship Specialty Start Date End Date Nathan [...] , DO Admit Provider, Attending Provider Active Advertising Display Rotator Relationship Specialty Start Date End Date Nathan Hathaway DO PCP - General Internal Medicine 01/31/12 Advertising Display Rotator Relationship Specialty Start Date End Date Nathan Hathaway DO PCP - General Internal Medicine 01/31/12 Team Status: Active Member Role Status Dates Nathan Hathaway DO Primary Care Provide r, Attending Provider Active Start: February 02, 2024 Team Status: Inactive Member Role Status Dates Nathan Hathaway DO Primary Care Provider Active Start: February 13, 2024 End: February 13, 2024 Deja Pope APRN NURSING ADMIN-C Attending Provider Act babar Start: February 13, 2024 End: February 13, 2024 Advertising Display Rotator Relationship Specialty Start Date End Date Nathan [...] February 27, 2024 End: February 27, 2024 Advertising Display Rotator Relationship Specialty Start Date End Date Nathan Hathaway DO PCP - General Internal Medicine 10/03/23 Advertising Display Rotator Relationship Specialty Start Date End Date Nathan Hathaway DO PCP - General Internal Medicine 10/03/23 Advertising Display Rotator Relationship Specialty Start Date End Date Nathan Hathaway DO PCP - General Internal Medicine 10/03/23 Advertising Display Rotator Relationship Specialty Start Date End Date Nathan Hathaway DO PCP - General Internal Medicine 10/03/23 Advertising Display Rotator Relationship Specialty Start Date End Date Nathan Hathaway DO PCP - General Internal Medicine 01/31/12 Advertising Display Rotator Relationship Specialty Start Date End Date Nathan Hathaway DO PCP - General Internal Medicine 10/03/23 Advertising Display Rotator Relationship Specialty Start Date End Date Nathan Hathaway DO PCP - General Internal Medicine 10/03/23 Advertising Display Rotator Relationship Specialty Start Date End Date Nathan Hathaway MD [address] [place] [facility] [place] [id number] PCP - External PCP Internal Medicine 06/29/23 Advertising Display Rotator Relationship Specialty Start Date End Date Nathan Hathaway MD [address] [facility] [place] [id number] PCP - External PCP Internal Medicine 06/29/23 Advertising Display Rotator Relationship Specialty Start Date End Date Nathan Hathaway MD [address] [place] [facility] [place] [address] PCP - External PCP Internal Medicine 06/29/23 Advertising Display Rotator Relationship Specialty Start Date End Date Nathan Hathaway DO PCP - General Internal Medicine 10/03/23 Team Status: Inactive Member Role Status Dates Nathan Hathaway DO Primary Care Provide r, Attending Provider Active Start: January 22, 2025 End: January 22, 2025 Advertising Display Rotator Relationship Specialty Start Date End Date Nathan Hathaway MD [address] [facility] [place] [id number] PCP - General Internal Medicine 02/10/25 Advertising Display Rotator Relationship Specialty Start Date End Date Nathan Hathaway DO [address] [place] [address] PCP - General Internal Medicine 02/10/25 Advertising Display Rotator Relationship Specialty Start Date End Date Nathan Hathaway DO [address] [place] [address] PCP - General Internal Medicine 02/10/25 Advertising Display Rotator Relationship Specialty Start Date End Date Nathan Hathaway DO [address] [place] [address] PCP - General Internal Medicine 03/09/25 Team Status: Active Member Role Status Hortencia Hathaway DO Primary Care Provide r, Attending Provider Active Start: January 23, 2025 Team Status: Inactive Member Role Status Hortencia Hathaway DO Primary Care Provider Active Start: February 12, 2025 End: February 12, 2025 Jorge L Cruz DO Emergency Provider Active Start: February 12, 2025 End: February 12, 2025 Team Status: Inactive Member Role Status Hortencia Hathaway DO Primary Care Provide r, Attending Provider Active Start: March 13, 2025 End: March 13, 2025 Team Status: Active Member Role Status Hortencia Hathaway DO Primary Care Provide r, Attending Provider Active Start: March 18, 2025 Team Status: Inactive Member Role Status Hortencia Hathaway DO Primary Care Provide r, Attending Provider Active Start: March 19, 2025 End: March 19, 2025 Team Status: Inactive Member Role Status Hortencia Hathaway DO Primary Care Provider Active Start: March 13, 2025 End: March 13, 2025 Nathan Hathaway DO Attending Provider Active Sta rt: March 13, 2025 End: March 13, 2025 Team Status: Active Member Role Status Hortencia Hathaway DO Primary Care Provider Active Start: March 18, 2025 Nathan aHthaway DO Attending Provider Active Sta rt: March 18, 2025 Team Status: Inactive Member Role Status Hortencia Hathaway DO Primary Care Provider Active Start: March 19, 2025 End: March 19, 2025 Nathan Hathaway DO Attending Provider Active Sta rt: March 19, 2025 End: March 19, 2025 Team Status: Inactive Member Role Status Dates Nathan Hathaway DO Primary Care Provider Active Start: May 19, 2025 End: May 19, 2025 Nathan Hathaway DO Attending Provider Active Sta rt: May 19, 2025 End: May 19, 2025 Team Status: Inactive Member Role Status Dates Nathan Hathaway DO Primary Care Provider Active Start: June 19, 2025 End: June 19, 2025 Nathan Hathaway DO Attending Provider Active Sta rt: June 19, 2025 End: June 19, 2025 INFORMATION SOURCE (unrecogn ized section and content) DATE CREATED AUTHOR 03/08/2023 [facility] DATE CREATED AUTHOR AUTHOR'S ORGANIZ ATION 03/09/2023 [employer] DATE CREATED AUTHOR AUTHOR'S ORGANIZ ATION 03/11/2023 [facility] DATE CREATED AUTHOR AUTHOR'S ORGANIZ ATION 11/08/2023 [facility] DATE CREATED AUTHOR AUTHOR'S ORGANIZ ATION 02/14/2025 [facility] DATE CREATED AUTHOR AUTHOR'S ORGANIZ ATION 02/26/2025 [facility] EPIC DATE CREATED AUTHOR AUTHOR'S ORGANIZ ATION 03/26/2025 [facility] DATE CREATED AUTHOR AUTHOR'S ORGANIZ ATION 03/26/2025 [facility] Goals (unrecognized section and content) Goals may [...] BE BASED ON THE PRIMARY CLINICAL RECORDS. [facility] [employer] provides no warranty or guarantee of the accuracy or completeness of information in this document.
[2025-06-23 08:08] LABS: Hematocrit 28.3 % (36.0-48.0); Hemoglobin 9.3 g/dL (12.0-16.0); Immature Granulocytes Abs Auto 0.02 10^3/uL (0.00-0.03); Immature Granulocytes Pct Auto 0.4 % (0.0-0.5); Lymphocytes Absolute Auto 0.8 10^3/uL (1.2-3.8); Mean Corpuscular HGB Conc 32.9 g/dL (29.9-35.2); Mean Corpuscular Hemoglobin 29.0 pg (26.7-34.0); Mean Corpuscular Volume 88.2 fL (81.0-99.0); Platelet Count 270 10^3/uL (150-450); Red Blood Count 3.21 10^6/uL (4.20-5.40); White Blood Count 5.6 10^3/uL (4.0-11.0)
[2025-06-23 08:22] LABS: Alanine Aminotransferase 18 U/L (14-59); Albumin Globulin Ratio 1.0; Albumin Level 3.2 g/dL (3.4-5.0); Alkaline Phosphatase 47 U/L (46-116); Anion Gap 12.1; Aspartate Amino Transferase 18 U/L (15-37); Blood Urea Nitrogen 22.0 mg/dL (7.0-18.0); Calcium 8.9 mg/dL (8.5-10.1); Carbon Dioxide 30.2 mmol/L (21.0-32.0); Chloride 104 mmol/L (98-107); Cholesterol 123 mg/dL (<=200); Estimated GFR (African America 42 (>=60 mL/min/1.73m^2); Estimated GFR (Non-African Ame 35 (>=60 mL/min/1.73m^2); Globulin 3.3 g/dL; Glucose 94 mg/dL (74-106); HDL Cholesterol 45 mg/dL (40-60); Potassium 4.3 mmol/L (3.5-5.1); Sodium 142 mmol/L (136-145); TSH W/ REFLEX FT4 5.101 uIU/mL (0.358-3.740); Total Protein 6.5 g/dL (6.4-8.2); Triglycerides 89 mg/dL (<=150); VLDL CHOLESTEROL 17.8 mg/dL
[2025-06-23 08:24] LABS: Iron 35.0 ug/dL (50.0-170.0); Percent Iron Saturation 14.3 %; Total Iron Binding Capacity 245.0 ug/dL (250.0-450.0)
[2025-06-23 09:48] LABS: Ferritin 176.0 ng/mL (8.0-252.0); Folate 17.90 ng/mL (8.60-58.90)
[2025-06-24 04:07] LABS: Vitamin B12 1089 pg/mL (232-1245)
[2025-06-25 12:12] LABS: Albumin 3.2 g/dL (2.9-4.4); Alpha-1-Globulin 0.3 g/dL (0.0-0.4); Alpha-2-Globulin 1.0 g/dL (0.4-1.0); Free Kappa Lt Chains,S 224.6 mg/L (3.3-19.4); Free Lambda Lt Chains,S 21.2 mg/L (5.7-26.3); Gamma Globulin 0.5 g/dL (0.4-1.8); Immunoglobulin A, Qn, Serum 62 mg/dL (64-422); Kappa/Lambda Ratio,S 10.59 (0.26-1.65)
== END 2025-06-23 06:56 | disposition home or self-care (01) ==
LOC: LAB 06:58
PROVIDERS: PCP Internal Medicine; Visit Provider Internal Medicine
DX: D64.9 Anemia, unspecified (principal); N18.32 Chronic kidney disease, stage 3b; D89.2 Hypergammaglobulinemia, unspecified; I25.10 Atherosclerotic heart disease of native coronary artery without angina pectoris; E78.00 Pure hypercholesterolemia, unspecified; E04.1 Nontoxic single thyroid nodule; I12.9 Hypertensive chronic kidney disease with stage 1 through stage 4 chronic kidney disease, or unspecified chronic kidney disease
CPT/HCPCS: 36415; 80053; 80061; 82043; 82570; 82607; 82728; 82746; 82784; 83521; 83540; 83550; 84155; 84165; 84439; 84443; 85025; 86334

== ENCOUNTER 2025-06-24 09:27 | Outpatient (REF) | payer MEDICARE, SELFPAY ==
--- OUTSIDE RECORDS SUMMARY | 2025-06-24 09:30 | XMS_ITS | Encounter Summary ---
Author Organization [facility] Address [address] [place] [address] Phone Care Team Providers Care Software Development Engineer Name Role Phone Fransico Nathan Chinyere REILLY Primary Care Provider [phone] Nathan Bateman DO Primary Care Provider [phone] Encounter Details Date Type Department Care Team (Late Contact Info) Description 10/24/2024 Scanned Document [facility] [address] [place] [address] Scanning, Generic Provider Social History [...] Description 10/27/2025 2:10 PM EST Office Visit [facility] [address] [facility] [address] [place] [address] Edinson Perry DO [address] [facility] [address], [address] [place], [place] [id number] documented as of this encounter Visit Diagnoses Not on filedocumented in this encounter Additional Health Concerns Assessment Noted Time A fall risk assessment has been complete d for the patient 03/05/2024 11:46 AM EDT documented as of this encounter Care Teams Software Development Engineer Relationship Specialty Start Date End Date Nathan Bateman DO PCP - General Internal Medicine 10/03/23 03/08/25 Nathan Bateman DO [address] [place] [address] PCP - General Internal Medicine 03/09/25 documented as of this encounter
--- OUTSIDE RECORDS SUMMARY | 2025-06-24 09:30 | XMS_ITS | Clinical Summary ---
Author Organization [facility] Address [address] [place], [place] [id number] Care Team Providers Care Motor Vehicle Emissions Inspector Name Role Phone Nathan Bateman DO Primary Care Provider [phone] Allergies Active Allergy Reactions Criticality Noted Date [...] original vaccine, a ge 12+ yr, monovalent (Carlotz - PURPLE TOP) 07/30/2021,12/18/2020,11/27/2020 COVID-19 original vaccine, a ge 5 yr - 11 yr, monovalent (Carlotz) 09/15/2022 COVID-19 original vaccine, f ull dose, [...] is lower risk 8 06/04/2023 Data from: https://www.neighborhoodatlas.[facility].edu/. Last address used for calculation [address] [place] [address] 06/04/2023 Comments No Sex and Gender Information [...] - 99 mg/dL 11/05/2023 1:46 PM EST [facility] Comment: The [place] Diabetes Association (ADA) provides guidance for cutoff [...] Standards of Medical Care in Diabetes 2016, [place] [employer]. Diabetes Care. 2016.39(Suppl 1). BUN 25(H) 7 - 21 mg/dL 11/05/2023 1:46 PM EST [facility] Creatinine 1.48(H) 0.58 - 0.96 mg/dL 11/05/2023 1:46 PM EST [facility] Sodium 141 136 - 144 mmol/L 11/05/2023 1:46 PM EST [facility] Potassium 5.0 3.7 - 5.1 mmol/L 11/05/2023 1:46 PM EST [facility] Chloride 103 97 - 105 mmol/L 11/05/2023 1:46 PM EST [facility] CO2 29 22 - 30 mmol/L 11/05/2023 1:46 PM EST [facility] Anion Gap 9 9 - 18 mmol/L 11/05/2023 1:46 PM [facility] Calcium, Total 9.6 8.5 - 10.2 mg/dL 11/05/2023 1:46 PM EST [facility] Estimated Glomerular Filtration Rate 35(L) >=60 mL/min/1. 73m 11/05/2023 1:46 PM EST [facility] Comment:Estimated Glomerular Filtration Rate (eGFR) is [...] Luis Mckenzie MD LABORATORY Final Re sult [facility] [address] [place] [address] from Last 3 Months or Most Recently Relevant to Health Maintenance Insurance MEDICARE Advance Directives Documents on File Type Date Recorded Patient Electric Motorman Expl anation Advance Directive(s) 08/01/2021 12:55 PM A dvance Directives Care Teams Motor Vehicle Emissions Inspector Relationship Specialty Start Date End Date Nathan Bateman DO PCP - General Internal Medicine 01/31/12
--- OUTSIDE RECORDS SUMMARY | 2025-06-24 09:30 | XMS_ITS | Encounter Summary ---
Author Organization [facility] Address [address] [place] [address] Phone Care Team Providers Care Operations Forester Name Role Phone Nathan Bateman DO Primary Care Provider [phone] Nathan Bateman DO Primary Care Provider [phone] Nathan Bateman DO Primary Care Provider [phone] Encounter Details Date Type Department Care Team (Late st Contact Info) Description 05/17/2023 Scanned Document [facility] [address] [place] [phone] Scanning, Generic Provider Social History Tobacco Use [...] Description 10/27/2025 2:10 PM EST Office Visit [facility] [address] [facility] [address] [place] [address] Edinson Perry DO 703 [facility] 2, [address] [place] [address] Scheduled Orders Name Type Priority Associated Diagnoses Orde r Schedule GENEDX - 2BP RESULTED Lab Ord ered: 05/17/2023 documented as of this encounter Visit Diagnoses Not on filedocumented in this encounter Care Teams Operations Forester Relationship Specialty Start Date End Date Nathan Bateman DO PCP - General 03/07/23 10/02/23 Nathan Bateman DO PCP - General Internal Medicine 10/03/23 03/08/25 Nathan Bateman DO [address] [place] [address] PCP - General Internal Medicine 03/09/25 documented as of this encounter
--- OUTSIDE RECORDS SUMMARY | 2025-06-24 09:30 | XMS_ITS | Clinical Summary ---
Author Organization [facility] Address [address] [place] [address] Care Team Providers Care Wide Area Network Systems Administrator Name Role Phone Nathan Bateman DO Primary Care Provider [phone] Allergies Active Allergy Reactions Criticality Noted Date [...] Office Visit [facility] [address] [facility] [address] [place] [address] Gladys Wright MD [address] [facility] [address] [place] [address] Health Maintenance Due Date Last Done Comments Influenza Vaccine (#1) 2025 4, 08/06/2023, 08/11/2022, Additional history exists Pneumococcal Vaccine: 65+ Years Completed 5, 08/11/2010 Insurance MEDICARE [facility] Care Teams Wide Area Network Systems Administrator Relationship Specialty Start Date End Date Nathan Bateman DO [address] [place] [address] PCP - General Internal Medicine 02/10/25
--- OUTSIDE RECORDS SUMMARY | 2025-06-24 09:30 | XMS_ITS | Encounter Summary ---
Author Organization [facility] Address [address] [place] [address] Phone Care Team Providers Care Prestressed Concrete Laborer Name Role Phone Nathan Bateman DO Primary Care Provider [phone] Nathan Bateman DO Primary Care Provider [phone] Nathan Bateman DO Primary Care Provider [phone] Encounter Details Date Type Department Care Team (Late st Contact Info) Description 06/06/2023 Scanned Document [facility] [address] [place] [address] Conversion, Onbase Social History Tobacco Use Types [...] Office Visit [facility] 703 [facility] [address] [place] [address] Edinson Perry DO 703 [facility] 2, [address] [place], [place] [id number] documented as of this encounter Visit Diagnoses Not on filedocumented in this encounter Care Teams Prestressed Concrete Laborer Relationship Specialty Start Date End Date Nathan Bateman DO PCP - General 03/07/23 10/02/23 Nathan Bateman DO PCP - General Internal Medicine 10/03/23 03/08/25 Nathan Bateman DO [address] [place] [address] PCP - General Internal Medicine 03/09/25 documented as of this encounter
--- OUTSIDE RECORDS SUMMARY | 2025-06-24 09:30 | XMS_ITS | Encounter Summary ---
Author Organization [facility] Address [address] [place] [address] Phone Care Team Providers Care Animal Hospital Clerk Name Role Phone Nathan Bateman DO Primary Care Provider [phone] Nathan Bateman DO Primary Care Provider [phone] Nathan Bateman DO Primary Care Provider [phone] Encounter Details Date Type Department Care Team (Late st Contact Info) Description 03/01/2023 Orders Only [facility] [address] [place] [address] Conversion, Onbase Social History Tobacco Use Types [...] Description 10/27/2025 2:10 PM EST Office Visit [facility] 703 [facility] [address] [place] [address] Edinson Perry DO 703 [facility] 2, [address] [place], [place] [phone] Scheduled Orders Name Type Priority Associated Diagnoses Orde r Schedule OUTSIDE LAB SCAN Lab Ordered: 03/01/2023 OUTSIDE LAB SCAN Lab Ordered: 03/01/2023 documented as of this encounter Visit Diagnoses Not on filedocumented in this encounter Care Teams Animal Hospital Clerk Relationship Specialty Start Date End Date Nathan Bateman DO PCP - General 03/07/23 10/02/23 Nathan Bateman DO PCP - General Internal Medicine 10/03/23 03/08/25 Nathan Bateman DO [address] [place] [address] PCP - General Internal Medicine 03/09/25 documented as of this encounter
--- OUTSIDE RECORDS SUMMARY | 2025-06-24 09:30 | XMS_ITS | Encounter Summary ---
Author Organization [facility] Address [address] [place] [address] Phone Care Team Providers Care Marketing Traffic Coordinator Name Role Phone Nathan Bateman DO Primary Care Provider [phone] Nathan Bateman DO Primary Care Provider [phone] Nathan Bateman DO Primary Care Provider [phone] Encounter Details Date Type Department Care Team (Late st Contact Info) Description 05/18/2023 Scanned Document [facility] [address] [place] [phone] Scanning, Generic Provider Social History Tobacco Use [...] Description 10/27/2025 2:10 PM EST Office Visit [facility] 703 [facility] [address] [place] [address] Edinson Perry DO 703 [facility] 2, [address] [place], [place] [address] documented as of this encounter Visit Diagnoses Not on filedocumented in this encounter Care Teams Marketing Traffic Coordinator Relationship Specialty Start Date End Date Nathan Bateman DO PCP - General 03/07/23 10/02/23 Nathan Bateman DO PCP - General Internal Medicine 10/03/23 03/08/25 Nathan Bateman DO [address] [place] [address] PCP - General Internal Medicine 03/09/25 documented as of this encounter
--- OUTSIDE RECORDS SUMMARY | 2025-06-24 09:30 | XMS_ITS | Clinical Summary ---
Author Organization [facility] Address [address] [place] [address] Phone Care Team Providers Care Professor Of Floriculture Name Role Phone Nathan Bateman DO Primary Care Provider [phone] Allergies Active Allergy Reactions Criticality Noted Date [...] AM EDT): March 09, 2023 Mid/proximal RCA PCI/[place] 4x15mm & 4x18mm Proximal diagonal PCI/[place] 2.5 [...] Description 10/27/2025 2:10 PM EST Office Visit [facility] [address] [facility] [address] [place] [address] Edinson Perry DO 703 [facility] 2, [address] [place] [address] Health Maintenance Due Date Last [...] Narrative SYNGO - 03/18/2025 6:52 PM EDT [address], [address], [place] [address] TRANSTHORACIC ECHOCARDIOGRAM REPORT Patient Name: LASHAUN WHALEY Reading Physician: [id number] Bryce Guy MD, [facility] Study Date: 03/17/2025 Ordering Provider: [id number] HOLDEN ROSADO MRN/PID: [id number] Fellow: Nurse: Date of /Age: 11 1940 / Merchandise Flow Manager: Nicolasa taylor RDCS, RVT Gender Assigned at F Additional Staff: : Height: 165.10 cm Admit Date: Weight: 90.72 kg Admission Status: BSA / BMI: 1.98 m2 / 33.28 Department Location: [facility] kg/m2 [facility] Blood Pressure: 120 /64 mmHg Study Type: TRANSTHORACIC ECHO (TTE) COMPLETE Diagnosis/ICD: Essential (primary) hypertension-I10; Palpitations-R00.2 Indication: CAD, PTCA-2022, Edema, Hyperlipidemia, Former Smoker CPT Codes: Echo Complete w Full [id number] Study Detail: The following Echo studies were [...] (0.6-0.9m/s) AORTA: Asc Ao Diam 2.73 cm [id number] Bryce Guy MD, FACC Electronically signed on 03/18/2025 at 6:52:27 PM Final Procedure Note Bryce Guy MD - 03/18/2025 [facility] 703 [facility], [address], [place] [address] TRANSTHORACIC ECHOCARDIOGRAM REPORT Patient Name: LASHAUN WHALEY Bessy Physician: [id number] Zurita, [facility] Study Date: 03/17/2025 Ordering Provider: [id number] ROSADO MRN/PID: [id number] Fellow: Nurse: Date of /Age: 11 1940 Merchandise Flow Manager: Carlos Eduardo taylor RDCS,RVT Gender Assigned at F Additional Staff: : Height: 165.10 cm Admit Date: Weight: 90.72 kg Admission Status: BSA / BMI: 1.98 m2 / 33.28 Department Location: [address] Blood Pressure: 120 /64 mmHg Study Type: TRANSTHORACIC ECHO (TTE) COMPLETE Diagnosis/ICD: Essential (primary) hypertension-I10; Palpitations-R00.2 Indication: CAD, PTCA-2022, Edema, Hyperlipidemia, Former Smoker CPT Codes: Echo Complete w Full [id number] Study Detail: The following Echo studies were [...] (0.6-0.9m/s) AORTA: Asc Ao Diam 2.73 cm [id number] Bryce Guy MD, [facility] Electronically signed on 03/18/2025 at 6:52:27 PM Final Holden Rosado APPIAN DEVELOPER-LABORATORY CUREMAN CV ECHO PROCEDURES Final Result SYNGO from Last 3 Months or Most Recently Relevant to Health Maintenance Insurance MEDICARE PART A AND B MEDICARE PART A AND B Care Teams Professor Of Floriculture Relationship Specialty Start Date End Date Nathan Bateman DO [address] [place] [address] PCP - General Internal Medicine 03/09/25
--- OUTSIDE RECORDS SUMMARY | 2025-06-24 09:30 | XMS_ITS | Encounter Summary ---
Author Organization [facility] Address [address] [place] [address] Phone Care Team Providers Care Mine Patrol Name Role Phone Nathan Bateman DO Primary Care Provider [phone] Nathan Bateman DO Primary Care Provider [phone] Encounter Details Date Type Department Care Team (Late st Contact Info) Description 12/18/2024 Scanned Document [facility] [address] [place] [address] Scanning, Generic Provider Social History [...] Description 10/27/2025 2:10 PM EST Office Visit [facility] [address] [address] Edinson Perry DO 703 [facility] 2, [address] [place] [address] documented as of this encounter Visit Diagnoses Not on filedocumented in this encounter Additional Health Concerns Assessment Noted Time A fall risk assessment has been complete d for the patient 03/05/2024 11:46 AM EDT documented as of this encounter Care Teams Mine Patrol Relationship Specialty Start Date End Date Nathan Bateman DO PCP - General Internal Medicine 10/03/23 03/08/25 Nathan Bateman DO [address] [place] [address] PCP - General Internal Medicine 03/09/25 documented as of this encounter
--- OUTSIDE RECORDS SUMMARY | 2025-06-24 09:30 | XMS_ITS | Encounter Summary ---
Author Organization [facility] Address [address] [place] [address] Care Team Providers Care Hobber Name Role Phone Nathan Bateman DO Primary Care Provider [phone] Source Comments In the event this information is protected by the Federal Confidentiality of Alcohol and Drug AbusePatient Records regulations: The Federal rules restrict any use of the information to criminally investigate or prosecute any alcohol or drug abuse patient.[facility] Encounter Details Date Type Department Care Team [...] is lower risk 8 06/04/2023 Data from: https://www.neighborhoodatlas.medicine.[facility].edu/. Last address used for calculation [address] [place] [address] 06/04/2023 Comments No Sex and Gender Information Value Date Recorded Sex Assigned at Not on file Legal Sex Female 10:14 AM EST Gender Identity Not on file Sexual Orientation Not on file documented as of this encounter Plan of Treatment Not on file documented as of this encounter Visit Diagnoses Not on filedocumented in this encounter Care Teams Hobber Relationship Specialty Start Date End Date Nathan Bateman DO PCP - General Internal Medicine 01/31/12 documented as of this encounter
--- OUTSIDE RECORDS SUMMARY | 2025-06-24 09:30 | XMS_ITS | Encounter Summary ---
Author Organization [facility] Address [address] [place] [address] Phone Care Team Providers Care Food Packer Name Role Phone Nathan Bateman DO Primary Care Provider [phone] Nathan Bateman DO Primary Care Provider [phone] Nathan Bateman DO Primary Care Provider [phone] Encounter Details Date Type Department Care Team (Late st Contact Info) Description 02/08/2023 Orders Only [facility] [address] [place] [address] Conversion, Onbase Social History Tobacco Use Types [...] 10/27/2025 2:10 PM EST Office Visit [facility] [address] [facility] [address] [place] [address] Edinson Perry DO 703 [facility] 2, [address] [place], [place] [phone] Scheduled Orders Name Type Priority Associated Diagnoses Orde r Schedule OUTSIDE LAB SCAN Lab Ordered: 02/08/2023 documented as of this encounter Visit Diagnoses Not on filedocumented in this encounter Care Teams Food Packer Relationship Specialty Start Date End Date Nathan Bateman DO PCP - General 03/07/23 10/02/23 Nathan Bateman DO PCP - General Internal Medicine 10/03/23 03/08/25 Nathan Bateman DO [address] [place] [address] PCP - General Internal Medicine 03/09/25 documented as of this encounter
--- OUTSIDE RECORDS SUMMARY | 2025-06-24 09:30 | XMS_ITS | Encounter Summary ---
Author Organization [facility] Address [address] [place] [address] Care Team Providers Care Liability Analyst Name Role Phone Nathan Bateman DO Primary Care Provider Source Comments In the event this information is protected by the Federal Confidentiality of Alcohol and Drug AbusePatient Records regulations: The Federal rules restrict any use of the information to criminally investigate or prosecute any alcohol or drug abuse patient.[facility] Encounter Details Date Type Department Care Team [...] on filedocumented in this encounter Care Teams Liability Analyst Relationship Specialty Start Date End Date Nathan Bateman DO PCP - General Internal Medicine 01/31/12 documented as of this encounter
--- OUTSIDE RECORDS SUMMARY | 2025-06-24 09:30 | XMS_ITS | Encounter Summary ---
Author Organization [facility] Address [address] [place] [address] Phone Care Team Providers Care Cellophane Bath Mixer Name Role Phone Fransico Nathan Chinyere REILLY Primary Care Provider [phone] Nathan Bateman DO Primary Care Provider [phone] Encounter Details Date Type Department Care Team (Late st Contact Info) Description 11/05/2023 Scanned Document [facility] [address] [place] [address] Scanning, Generic Provider Social History [...] Description 10/27/2025 2:10 PM EST Office Visit [facility] 703 [facility] [address] [place] [address] Edinson Perry DO 703 [facility] 2, [address] [place], [place] [phone] documented as of this encounter Visit Diagnoses Not on filedocumented in this encounter Additional Health Concerns Assessment Noted Time A fall risk assessment has been complete d for the patient 10/17/2023 11:42 AM EST documented as of this encounter Care Teams Cellophane Bath Mixer Relationship Specialty Start Date End Date Nathan Bateman DO PCP - General Internal Medicine 10/03/23 03/08/25 Nathan Bateman DO [address] [place] [address] PCP - General Internal Medicine 03/09/25 documented as of this encounter
--- OUTSIDE RECORDS SUMMARY | 2025-06-24 09:35 | XMS_ITS | CCD ---
Author Organization [facility] CliniSyne Care Team Providers Care Control System Computer Scientist Name Role Phone Nathan Hathaway DO Primary [...] Care Unavailable DO Jonna Perry Attending Provider [phone] DO Nathan Hathaway Primary Care Provider [phone] Nathan Hathaway Unavailable [place], Dr. Edinson Hinojosa Attending Darleneva jen Hathaway, Dr. Nathan Maxwell Primary Care Ericka Perry, Dr. Edinson Hinojosa Attending Aura Perry, Dr. Edinson Hinojosa Referring Aura Hathaawy, Dr. Nathan Maxwell Primary Care DO Fernando [...] Care Provider Isabela, Nathan Primary Care Provider THONY Rosado Attending Provider [phone] Nathan Hathaway DO Primary Care Provider Nathan [...] Rosado Admitting Unavailable Holden Rosado Attending Unavailable Isabela REILLY Nathan E Primary Care Provider REYNA ESPARZA Attending Unavailable ISABELA NATHAN E Referring Unavailable REYNA ESPARZA Attending Unavailable FERCHO TSE Attending Unavailable Isabela REILLY Nathan E Primary Care Provider Isabela REILLY, Nathan Primary Care Provider Jorge L Cruz DO Emergency Provider HOLDEN [...] Unavailable Nathan Hathaway DO Primary Care Provider [phone] Isabela REILLY, Nathan Attending Provider [phone] Nathan Hathaway DO Primary Care Provider Isabela REILLY, Nathan Attending Provider [phone] Allergies Allergy Classification Reported Allergen(s) Allergy Type Date of Onset Reaction(s) Facility (20 sources) amLODIPine; Translations: [AMLODIPINE] Drug Allergy 07-27-20 Unknown [facility] (8 sources) Codeine / guaiFENesin; Translations: [CODEINE-GUAIFENESI N] Drug Allergy 07-27-20 Unknown [facility] (8 sources) Doxycycline; Translations: [DOXYCYCLINE HYCLATE] Drug Allergy 07-27-20 Unknown [facility] (20 sources) DULoxetine; Translations: [DULOXETINE] Drug Allergy 07-27-20 Unknown [facility] (20 sources) levoFLOXacin; Translations: [LEVOFLOXACIN] Drug Allergy 07-27-20 Unknown [facility] (20 sources) Ondansetron; Translations: [ONDANSETRON] Drug Allergy 07-27-20 Unknown [facility] Comment on above: Onset Date: 10/29/19 20 (20 sources) Penicillins; Translations: [PENICILLINS] Propensity to adverse reactions to drug 07-27-20 Unknown [facility] (20 sources) Sulfamethoxazole / Trimethoprim; Translations: [Bactrim] Drug Allergy 07-27-20 Unknown, Hives [facility] (8 sources) Tetracycline (class of antibiotic); Translations: [TETRACYCLINES] Propensity to adverse reactions to drug 07-27-20 Unknown [facility] (8 sources) Iodine And Iodide Containing Products; Translations: [IODINE AND IODIDE CONTAINING PRODUCTS] Drug Allergy 01-20-20 Unknown [facility] (20 sources) Tetanus And Diphtheria Toxoids; Translations: [TETANUS AND DIPHTHERIA TOXOIDS] Propensity to adverse reactions to drug 07-27-20 21 Unknown [facility] (20 sources) Amoxicillin Drug Allergy 02-01-20 24 Unknown, Unknown Reaction [facility] (20 sources) Codeine / guaiFENesin Drug Allergy Unknown [facility] Other (20 sources) Doxycycline Drug Allergy 12-09-19 19 Unknown, Unknown Reaction [facility] (20 sources) levoFLOXacin Drug Allergy Unknown [facility] Other (20 sources) Ondansetron; Translations: [Zofran] Drug Allergy 11-05-19 Unknown [facility] (20 sources) Tetanus-Diphtheria Toxoids Td Drug allergy Unknown [facility] Other (20 sources) Allopurinol Drug Allergy 11-05-19 24 Unknown [facility] (1 source) amLODIPine Drug Allergy 11-05-19 20 [facility] (1 source) Doxycycline Drug Allergy [facility] (1 source) DULoxetine Drug Allergy 11-05-19 20 [facility] (1 source) Iodine (And Iodine Containting Drugs) Drug allergy (disorder) 01-20-20 21 [facility] (1 source) Sulfamethoxazole / Trimethoprim Drug Allergy 11-05-19 20 [facility] (4 sources) Sulfonamides (Antibiotic) Allergy to substance 03-08-20 23 Rash [facility] (14 sources) Sulfamethoxazole Drug Allergy 03-09-20 23 Unknown Reaction [facility] (3 sources) Trimethoprim Drug Allergy 03-09-20 23 Unknown Reaction [facility] (20 sources) Pseudoephedrine Drug Allergy 10-29-19 Unknown [facility] Other (20 sources) Tetracycline Drug Allergy Unknown [facility] Other (20 sources) Cheratussin AC *COUGH/COLD/ALLERGY * Propensity to adverse reactions 10-29-19 Unknown [facility] Other (20 sources) Zofran *ANTIEMETICS* Propensity to adverse reactions 10-29-19 Unknown [facility] Other (5 sources) amLODIPine Drug Allergy Unknown [facility] Other (20 sources) Azithromycin; Translations: [AZITHROMYCIN] Drug Allergy 10-17-20 23 rash, Swelling [facility] (20 sources) Codeine Drug Allergy 02-01-20 24 Unknown Reaction [facility] (13 sources) guaiFENesin Drug Allergy 02-01-20 24 Unknown Reaction [facility] (13 sources) 12 Hour Decongestant Allergy to substance 02-01-20 24 Unknown Reaction [facility] Comment on above: Onset Date: 10/29/19 20 (13 sources) Cheratussin AC *COUGH/COLD/ALL Allergy to substance 02-01-20 24 Unknown Reaction [facility] Comment on above: Free Text Allergy: [...] as needed for 30 days Mar, Active [id number] 200 actuat albuterol 0.09 mg/actuat metered dose [...] tid if needed take 1 capsule by [facility] twice daily gabapentin (Neurontin) 100 mg capsule Take 1 capsule (100 mg) by mouth 2 times a day. Active take 1 capsule by [facility] every twenty-four hours Gabapentin 100 MG 1 [...] Start : 07-Mar-2023 Active new start nystatin [id number] unt/ml oral suspension (2 sources) Polyene Antifungal [...] Onset: 02-14-2023 Chronic Comment on above: - [facility] w/ PCI/stent L AD, RCA (Feb, 2023)- Echo w/ LVEF 60%, ELY, normal RV size/function, RVSP 41 - 01/2024 Problem List clean-u p per request of Phys. EHR Cmte - [facility] w/ PCI/stent L AD, RCA (Feb, 2023)- Echo w/ LVEF 60%, ELY, normal RV size/function, RVSP 41 - 01/2024,Echo: LVEF 60-65%, normal RV size/function, mild-mod MR - 02/2025 Coronary atherosclerosis and other heart disease (20 sources) Angina, class III; Translations: [Other and unspecified angina pectoris] Onset: 10-17-2023 Chronic Comment on above: [facility] w/ PCI/stent LAD , RCA (Feb, [...] Onset: 05-24-2015 Chronic Other aftercare (1 source) [facility] (current) use of aspirin; Translations: [VALVE INSPECTOR CURRENT USE OF ASPIRIN] Onset: 02-14-2023 Episodic Other aftercare (1 source) Other nursing home (current) drug therapy; Translations: [OTH VALVE INSPECTOR CURRENT DRUG THERAPY] Onset: 02-14-2023 Episodic Other [...] (GFR) non- Low >=60 mL/min/1.73 m 2 [facility] GFR/1.73 sq M.predicted among non-blacks MDRD (S/P/Bld) [Vol rate/Area] 31 mL/min/{1.73_m2} Low >=60 mL/min/1.73 m 2 [facility] Laboratory - Chemistry and C hemistry - challengeon 03-18-2025 Calcium [Mass/Vol] 8.9 mg/dL 8.5-10.1 [facility] Chloride [Moles/Vol] 105 mmol/L 98-107 [facility] CO2 [Moles/Vol] 30.7 mmol/L 21.0-32.0 [facility] Creatinine [Mass/Vol] 1.60 mg/dL High 0.55-1.02 [facility] GFR/1.73 sq M.predicted MDRD (S/P/Bld) [Vol rate/Area] 37 mL/min/{1.73_m2} Low >=60 mL/min/1.73 m 2 [facility] Glucose [Mass/Vol] 112 mg/dL High 74-106 [facility] Potassium [Moles/Vol] 4.4 mmol/L 3.5-5.1 [facility] Sodium [Moles/Vol] 145 mmol/L 136-145 [facility] TSH Qn 3.657 m[IU]/L 0.358-3.740 [facility] Urea nitrogen [Mass/Vol] 33.0 mg/dL High 7.0-18.0 [facility] Urea nitrogen/Creatinine [Mass ratio] 20.6 mg/mg [facility] Serum or plasma anion gap de terminationon 03-18-2025 Anion gap [Moles/Vol] Serum or plasma an ion gap determination [facility] Anion gap [Moles/Vol] 13.7 mmol/L [facility] TRANSTHORACIC ECHO (TTE) COM PLETEon 03-17-2025 TRANSTHORACIC ECHO (TTE) COMPLETE [address], [address] [place] [address] TRANSTHORACIC ECHOCARDIOGRAM REPORT Patient Name: LASHAUN Doherty Physician: [id number] Bryce Guy MD, [facility] Study Date: 03/17/2025 Ordering Provider: [id number] HOLDEN ROSADO MRN/PID: [id number] Fellow: Nurse: Date of /Age: 11 1940 Motor Vehicle Clerk: Nicolasa Tobias years RDCS, RVT Gender Assigned at F Additional Staff: : Height: 165.10 cm Admit Date: Weight: 90.72 kg Admission Status: BSA / BMI: 1.98 m2 / 33.28 Department Location: [facility] kg/m2 [facility] [place] Blood Pressure: 120 /64 mmHg Study Type: TRANSTHORACIC ECHO (TTE) COMPLETE Diagnosis/ICD: Essential (primary) hypertension-I10; Palpitations-R00.2 Indication: CAD, PTCA-2022, Edema, Hyperlipidemia, Former Smoker CPT Codes: Echo Complete w Full Doppler-62676 Study Detail: The following Echo studies were [...] Ranges: RV (more content not included)... Normal [facility] Acanthocytes [Presence] in B lood by Light microscopyOrdered By: Jorge L Cruz on 02-12-2025 Acanthocytes LM Ql (Bld) Acanthocytes [Presence] in Blood by Light microscopy [facility] Alanine aminotransferase [En zymatic activity/volume] in Serum or PlasmaOrdered By: Jorge L Cruz on 02-12-2025 ALT [Catalytic activity/Vol] Alanine aminotransferase [Enzymatic activity/volume] in Serum or Plasma [facility] Albumin [Mass/volume] in Ser um or Plasma by Bromocresol green (BCG) dye binding methoOrdered By: Jorge L Cruz on 02-12-2025 Albumin BCG dye [Mass/Vol] Albumin [Mass/volume] in Serum or Plasma by Bromocresol green (BCG) dye binding metho 3.5-5.7 [facility] Alkaline phosphatase [Enzyma tic activity/volume] in Serum or PlasmaOrdered By: Jorge L Cruz on 02-12-2025 ALP [Catalytic activity/Vol] Alkaline phosphatase [Enzymatic activity/volume] in Serum or Plasma 34-104 [facility] Anisocytosis LM Ql (Bld)Orde red By: Jorge L Cruz on 02-12-2025 Anisocytosis Ql (Bld) Anisocytosis [Pres ence] in Blood by Light microscopy [facility] Aspartate aminotransferase [ Enzymatic activity/volume] in Serum or PlasmaOrdered By: Jorge L Cruz on 02-12-2025 AST [Catalytic activity/Vol] Aspartate aminotransferase [Enzymatic activity/volume] in Serum or Plasma 13-39 [facility] B-Type Natriuretic Peptideon 02-12-2025 Natriuretic peptide B (Bld) [Mass/Vol] 246.0 pg/mL High 5-100 [facility] Comment on above: Result Comment: PERF ORMED BY: [facility] [address] [place] [address] PATHOLOGIST HOME HEALTH MANAGER RAMEZ MONTES M.D. Performed By: #### S CAN CBC, CK, HS TROP, BNP, PT, PTT ####[facility] [id number] Basophils Auto (Bld) [#/Vol] Ordered By: Jorge L Cruz on 02-12-2025 Basophils (Bld) [#/Vol] Automated basophil count 0.0-0.2 [facility] Basophils/100 WBC Auto (Bld) Ordered By: Jorge L Cruz on 02-12-2025 Basophils/100 WBC (Bld) Automated basophil % . [facility] Bilirubin.total [Mass/volume ] in Serum or PlasmaOrdered By: Jorge L Cruz on 02-12-2025 Bilirubin [Mass/Vol] Bilirubin.total [Mass/volume] in Serum or Plasma 0.3-1.0 [facility] Calcium [Mass/volume] in Ser um or PlasmaOrdered By: Jorge L Cruz on 02-12-2025 Calcium [Mass/Vol] Calcium [Mass/volume ] in Serum or Plasma 8.6-10.3 [facility] Carbon dioxide, total [Moles /volume] in Serum or PlasmaOrdered By: Jorge L Cruz on 02-12-2025 CO2 [Moles/Vol] Carbon dioxide, tota l [Moles/volume] in Serum or Plasma 21.0-31.0 [facility] Chloride [Moles/volume] in S courtney or PlasmaOrdered By: Jorge L Cruz on 02-12-2025 Chloride [Moles/Vol] Chloride [Moles/vol ume] in Serum or Plasma 98-107 [facility] Comprehensive Metabolic Pane arnoldo 02-12-2025 Albumin [Mass/Vol] 3.8 g/dL Normal 3.5-5.7 [facility] Comment on above: Performed By: #### T SH3, CMP, MG #### [address] Albumin/Globulin [Mass ratio] 1.6 {ratio} Normal [facility] Comment on above: Performed By: #### T SH3, CMP, MG #### [address] ALP [Catalytic activity/Vol] 43 U/L Normal 34-104 [facility] Comment on above: Performed By: #### T SH3, CMP, MG #### [address] ALT [Catalytic activity/Vol] 14 U/L Normal 7-52 [facility] Comment on above: Performed By: #### T SH3, CMP, MG #### [address] Anion gap [Moles/Vol] 11.4 mmol/L Normal 6.0-15.0 [facility] Comment on above: Performed By: #### T SH3, CMP, MG #### [address] AST [Catalytic activity/Vol] 19 U/L Normal 13-39 [facility] Comment on above: Performed By: #### T SH3, CMP, MG #### [place] [address] [place] Bilirubin [Mass/Vol] 0.4 mg/dL Normal 0.3-1.0 [facility] Comment on above: Performed By: #### T SH3, CMP, MG #### [address] Calcium [Mass/Vol] 9.1 mg/dL Normal 8.6-10.3 [facility] Comment on above: Performed By: #### T SH3, CMP, MG #### [address] Chloride [Moles/Vol] 107 mmol/L Normal 98-107 [facility] Comment on above: Performed By: #### T SH3, CMP, MG #### [address] CO2 [Moles/Vol] 27.7 mmol/L Normal 21.0-31.0 [facility] Comment on above: Performed By: #### T SH3, CMP, MG #### [address] Creatinine [Mass/Vol] 1.28 mg/dL High 0.60-1.20 [facility] Comment on above: Performed By: #### T SH3, CMP, MG #### [address] Creatinine Clr Calc Pharmacy 37.75 Normal [facility] Comment on above: Performed By: #### T SH3, CMP, MG #### [address] Estimated GFR 41.827 mL/Min Normal [facility] Comment on above: Performed By: #### T SH3, CMP, MG #### [address] Globulin (S) [Mass/Vol] 2.4 g/dL Normal [facility] Comment on above: Performed By: #### T SH3, CMP, MG #### [address] Glucose [Mass/Vol] 102 mg/dL High 70-100 [facility] Comment on above: Result Comment: [facility] Glucose Reference Range is dependent on time and content of last meal. Glucose of more than 200 mg/dL in a nonstressed, ambulatory subject supports the diagnosis of Diabetes Mellitus. ADA recommended reference range Performed By: #### T SH3, CMP, MG #### [facility] [address] [place] [address] [place] Potassium [Moles/Vol] 4.1 mmol/L Normal 3.5-5.1 [facility] Comment on above: Performed By: #### T SH3, CMP, MG #### [facility] [address] [place] [address] [place] Protein [Mass/Vol] 6.2 g/dL Low 6.4-8.9 [facility] Comment on above: Performed By: #### T SH3, CMP, MG #### [facility] [address] [place] [address] [place] Sodium [Moles/Vol] 142 mmol/L Normal 136-145 [facility] Comment on above: Performed By: #### T SH3, CMP, MG #### [facility] [address] [place] [address] [place] Urea nitrogen [Mass/Vol] 28 mg/dL High 7-25 [facility] Comment on above: Performed By: #### T SH3, CMP, MG #### [facility] [address] [place] [id number] [place] Creatine Kinaseon 02-12-2025 CK [Catalytic activity/Vol] 35 U/L Normal 30-223 [facility] Comment on above: Performed By: #### S CAN CBC, CK, HS TROP, BNP, PT, PTT ####[facility] [id number] [place] [address] [place] Creatine kinase [Enzymatic a ctivity/volume] in Serum or PlasmaOrdered By: Jorge L Cruz on 02-12-2025 CK [Catalytic activity/Vol] Creatine kinase [Enzymatic activity/volume] in Serum or Plasma 30-223 [facility] Creatinine [Mass/volume] in Serum or PlasmaOrdered By: Jorge L Cruz on 02-12-2025 Creatinine [Mass/Vol] Creatinine [Mass/v olume] in Serum or Plasma High 0.60-1.20 [facility] ECG 12 lead ECGon 02-12-2025 ECG 12 lead ECG [facility] [place] [address] Electrocardiograph Report Signed Patient: Lashaun Joaquin MR#: [id number] : 1940 Acct:[id number] Age/Sex: 84 / F ADM Date: 02/12/25 Loc: ER Room: Type: [facility] ER Attending Dr: Ordering Provider: Jorge [...] rhythm Confirmed by Jorge L CRUZ DO ([id number]) on 02/12/2025 10:52:00 AM Referred By: Electronically Signed By: Jorge L CRUZ DO Transcribed By: MUS Signed By Jorge L Cruz DO 0 02/12/25 1052 Normal [facility] Eosinophils Auto (Bld) [#/Vo l]Ordered By: Jorge L Cruz on 02-12-2025 Eosinophils (Bld) [#/Vol] Automated eosinophil count 0.0-0.45 [facility] Eosinophils/100 WBC Auto (Bl d)Ordered By: Jorge L Cruz on 02-12-2025 Eosinophils/100 WBC (Bld) Automated eosinophil % . [facility] Erythrocyte distribution wid th Auto (RBC) [Ratio]Ordered By: Jorge L Cruz on 02-12-2025 Erythrocyte distribution width (RBC) [Ratio] Erythrocyte distribution width [Ratio] by Automated count 11.9-15.3 [facility] Erythrocyte morphology findi ng [Identifier] in BloodOrdered By: Jorge L Cruz on 02-12-2025 RBC morphology finding Nom (Bld) RBC morphology [facility] Globulin Calc (S) [Mass/Vol] Ordered By: Jorge L Cruz on 02-12-2025 Globulin (S) [Mass/Vol] Serum globulin measurement by calculation (mass/volume) [facility] Glucose [Mass/volume] in Ser um or PlasmaOrdered By: Jorge L Cruz on 02-12-2025 Glucose [Mass/Vol] Glucose [Mass/volume ] in Serum or Plasma High 70-100 [facility] Comment on above: ADA recommended refe [...] of Blood by Automated count Low 34.0-46.4 [facility] Hemoglobin [Mass/volume] in BloodOrdered By: Jorge L Cruz on 02-12-2025 Hemoglobin (Bld) [Mass/Vol] Hemoglobin [Mass/volume] in Blood Low 11.8-15.4 [facility] INR in Platelet poor plasma by Coagulation assayOrdered By: Jorge L Cruz on 02-12-2025 INR Coag (PPP) [Relative time] INR in Platelet poor plasma by Coagulation assay [facility] Comment on above: INR Therapeutic Rang [...] erythrocytes in Blood by Automated coun 3.8-11.6 [facility] Lymphocytes Auto (Bld) [#/Vo l]Ordered By: Jorge L Cruz on 02-12-2025 Lymphocytes (Bld) [#/Vol] Lymphocytes [#/volume] in Blood by Automated count Low 1.00-4.8 [facility] Lymphocytes/100 WBC Auto (Bl d)Ordered By: Jorge L Cruz on 02-12-2025 Lymphocytes/100 WBC (Bld) Lymphocytes/100 leukocytes in Blood by Automated count . [facility] MCH Auto (RBC) [Entitic mass ]Ordered By: Jorge L Cruz on 02-12-2025 MCH (RBC) [Entitic mass] MCH [Entitic mass] by Automated count 24.7-34.3 [facility] MCHC Auto (RBC) [Mass/Vol]Or dered By: Jorge L Cruz on 02-12-2025 MCHC (RBC) [Mass/Vol] MCHC [Mass/volume] by Automated count 32.0-35.0 [facility] MCV Auto (RBC) [Entitic vol] Ordered By: Jorge L Cruz on 02-12-2025 MCV (RBC) [Entitic vol] MCV [Entitic volume] by Automated count 80-100 [facility] Magnesiumon 02-12-2025 Magnesium [Mass/Vol] 2.3 mg/dL Normal 1.9-2.7 [facility] Comment on above: Performed By: #### T SH3, CMP, MG #### [address] Magnesium [Mass/volume] in S courtney or PlasmaOrdered By: Jorge L Cruz on 02-12-2025 Magnesium [Mass/Vol] Magnesium [Mass/vol ume] in Serum or Plasma 1.9-2.7 [facility] Microcytes LM Ql (Bld)Ordere d By: Jorge L Cruz on 02-12-2025 Microcytes Ql (Bld) Microcytes [Presence ] in Blood by Light microscopy [facility] Monocyte distribution width [Entitic volume] in Blood by AutomatedOrdered By: Jorge L Cruz on 02-12-2025 Monocyte distribution width Auto (Bld) [Entitic vol] Monocyte distribution width [Entitic volume] in Blood by Automated High 0.00-20.00 [facility] Comment on above: For adults in ED, MD W > 20.0 may be associated with a higher risk of sepsis during the first 12 hrs of hospital admission Monocytes Auto (Bld) [#/Vol] Ordered By: Jorge L Cruz on 02-12-2025 Monocytes (Bld) [#/Vol] Automated blood monocyte count 0.0-0.8 [facility] Monocytes/100 WBC Auto (Bld) Ordered By: Jorge L Cruz on 02-12-2025 Monocytes/100 WBC (Bld) Automated monocyte % . [facility] Natriuretic peptide B [Mass/ Vol]Ordered By: Jorge L Cruz on 02-12-2025 Natriuretic peptide B (Bld) [Mass/Vol] BNP ser/plas High 5-100 [facility] Neutrophils Auto (Bld) [#/Vo l]Ordered By: Jorge L Cruz on 02-12-2025 Neutrophils (Bld) [#/Vol] Neutrophils [#/volume] in Blood by Automated count 1.8-7.7 [facility] Neutrophils/100 WBC Auto (Bl d)Ordered By: Jorge L Cruz on 02-12-2025 Neutrophils/100 WBC (Bld) Automated neutrophil % . [facility] No Panel InformationOrdered By: Jorge L Cruz on 02-12-2025 Estimated GFR (CKD-EPI) 41.827 mL/Min [facility]acy Creatinine Clearance (Chem 37.75 [facility] Nucleated erythrocytes [Pres ence] in Blood by Automated countOrdered By: Jorge L Cruz on 02-12-2025 Nucleated RBC Auto Ql (Bld) Nucleated erythrocytes [Presence] in Blood by Automated count 0-0.5 [facility] Ovalocytes [Presence] in Blo od by Light microscopyOrdered By: Jorge L Cruz on 02-12-2025 Ovalocytes LM Ql (Bld) Ovalocyte detection [facility] Partial Thromboplastin Timeo n 02-12-2025 aPTT Coag (Bld) [Time] 29.8 s Normal 25.1-36.5 [facility] Comment on above: Result Comment: A he matocrit value greater than 55% may lead to inaccurate results in coagulation testing. Patients having hematocrit values >55% require a special collection tube for coagulation studies. Please contact the laboratory at [phone] for redraw instructions. PERFORMED BY: [facility] [address] [place] [address] PATHOLOGIST HOME HEALTH MANAGER RAMEZ MONTES M.D. Performed By: #### S CAN CBC, CK, HS TROP, BNP, PT, PTT ####[facility] [id number] [place] [address] [facility] Platelet adequacy [Presence] in Blood by Light microscopyOrdered By: Jorge L Cruz on 02-12-2025 Platelets LM Ql (Bld) Platelet adequacy [Presence] in Blood by Light microscopy Normal [facility] Platelet mean volume Auto (B ld) [Entitic vol]Ordered By: Jorge L Cruz on 02-12-2025 Platelet mean volume (Bld) [Entitic vol] Platelet mean volume [Entitic volume] in Blood by Automated count 6.3-10.7 [facility] Platelet morphology finding [Identifier] in BloodOrdered By: Jorge L Cruz on 02-12-2025 Platelet morphology finding Nom (Bld) Platelet morphology finding [Identifier] in Blood Normal [facility] Platelets Auto (Bld) [#/Vol] Ordered By: Jorge L Cruz on 02-12-2025 Platelets (Bld) [#/Vol] Platelets [#/volume] in Blood by Automated count 150-450 [facility] Poikilocytosis [Presence] in Blood by Light microscopyOrdered By: Jorge L Cruz on 02-12-2025 Poikilocytosis LM Ql (Bld) Poikilocytosis [Presence] in Blood by Light microscopy [facility] Potassium [Moles/volume] in Serum or PlasmaOrdered By: Jorge L Cruz on 02-12-2025 Potassium [Moles/Vol] Potassium [Moles/v olume] in Serum or Plasma 3.5-5.1 [facility] Protein [Mass/volume] in Ser um or PlasmaOrdered By: Jorge L Cruz on 02-12-2025 Protein [Mass/Vol] Protein [Mass/volume ] in Serum or Plasma Low 6.4-8.9 [facility] Prothrombin Time INRon 02-12 INR Coag (PPP) [...] CBC, CK, HS TROP, BNP, PT, PTT ####[place] [id number] [address] PT Coag (PPP) [Time] 11.3 s Normal 9.0-12.9 [facility] Comment on above: Result Comment: A he matocrit value greater than 55% may lead to inaccurate results in coagulation testing. Patients having hematocrit values >55% require a special collection tube for coagulation studies. Please contact the laboratory at [phone] for redraw instructions. Performed By: #### S CAN CBC, CK, HS TROP, BNP, PT, PTT ####[address] Prothrombin time (PT)Ordered By: Jorge L Cruz on 02-12-2025 PT Coag (PPP) [Time] Prothrombin time (PT) 9.0- 12.9 [facility] Comment on above: A hematocrit value g reater than 55% may lead to inaccurate results in coagulation testing. Patients having hematocrit values >55% require a special collection tube for coagulation studies. Please contact the laboratory at [phone] for redraw instructions. RBC Auto (Bld) [#/Vol]Ordere d By: Jorge L Cruz on 02-12-2025 RBC (Bld) [#/Vol] Erythrocytes [#/volu me] in Blood by Automated count Low 3.60-5.00 [facility] Scan and CBCon 02-12-2025 Acanthocytes Slight Normal [facility] Comment on above: Performed By: #### S CAN CBC, CK, HS TROP, BNP, PT, PTT ####[address] Anisocytosis Ql (Bld) Moderate Normal [facility] Comment on above: Performed By: #### S CAN CBC, CK, HS TROP, BNP, PT, PTT ####[address] Basophils (Bld) [#/Vol] 0.0 10*3/uL Normal 0.0-0.2 [facility] Comment on above: Performed By: #### S CAN CBC, CK, HS TROP, BNP, PT, PTT ####[address] Basophils/100 WBC (Bld) 0.6 % Normal . [facility] Comment on above: Performed By: #### S CAN CBC, CK, HS TROP, BNP, PT, PTT ####[address] Eosinophils (Bld) [#/Vol] 0.1 10*3/uL Normal 0.0-0.45 [facility] Comment on above: Performed By: #### S CAN CBC, CK, HS TROP, BNP, PT, PTT ####[address] Eosinophils/100 WBC (Bld) 1.5 % Normal . [facility] Comment on above: Performed By: #### S CAN CBC, CK, HS TROP, BNP, PT, PTT ####[address] Erythrocyte distribution width (RBC) [Ratio] 13.8 % Normal 11.9-15.3 [facility] Comment on above: Performed By: #### S CAN CBC, CK, HS TROP, BNP, PT, PTT ####[address] Hematocrit (Bld) [Volume fraction] 29.7 % Low 34.0-46.4 [facility] Comment on above: Performed By: #### S CAN CBC, CK, HS TROP, BNP, PT, PTT ####[address] Hemoglobin (Bld) [Mass/Vol] 10.2 g/dL Low 11.8-15.4 [facility] Comment on above: Performed By: #### S CAN CBC, CK, HS TROP, BNP, PT, PTT ####[address] Lymphocytes (Bld) [#/Vol] 0.9 10*3/uL Low 1.00-4.8 [facility] Comment on above: Performed By: #### S CAN CBC, CK, HS TROP, BNP, PT, PTT ####[address] Lymphocytes/100 WBC (Bld) 13.6 % Normal . [facility] Comment on above: Performed By: #### S CAN CBC, CK, HS TROP, BNP, PT, PTT ####[address] MCH (RBC) [Entitic mass] 28.9 pg Normal 24.7-34.3 [facility] Comment on above: Performed By: #### S CAN CBC, CK, HS TROP, BNP, PT, PTT ####[address] MCV (RBC) [Entitic vol] 83.9 fL Normal 80-100 [facility] Comment on above: Performed By: #### S CAN CBC, CK, HS TROP, BNP, PT, PTT ####[address] Mean Corpuscular HGB Conc 34.5 g/dL Normal 32.0-35.0 [facility] Comment on above: Performed By: #### S CAN CBC, CK, HS TROP, BNP, PT, PTT ####[address] Microcytosis Moderate Normal [facility] Comment on above: Performed By: #### S CAN CBC, CK, HS TROP, BNP, PT, PTT ####[address] Monocytes (Bld) [#/Vol] 0.4 10*3/uL Normal 0.0-0.8 [facility] Comment on above: Performed By: #### S CAN CBC, CK, HS TROP, BNP, PT, PTT ####[address] Monocytes/100 WBC (Bld) 21.49 % High 0.00-20.00 [facility] Comment on above: Result Comment: For adults in ED, MDW > 20.0 may be associated with a higher risk of sepsis during the first 12 hrs of hospital admission Performed By: #### S CAN CBC, CK, HS TROP, BNP, PT, PTT ####[address] Monocytes/100 WBC (Bld) 6.6 % Normal . [facility] Comment on above: Performed By: #### S CAN CBC, CK, HS TROP, BNP, PT, PTT ####[address] Neutrophils (Bld) [#/Vol] 4.9 10*3/uL Normal 1.8-7.7 [facility] Comment on above: Performed By: #### S CAN CBC, CK, HS TROP, BNP, PT, PTT ####[address] Neutrophils/100 WBC (Bld) 77.7 % Normal . [facility] Comment on above: Performed By: #### S CAN CBC, CK, HS TROP, BNP, PT, PTT ####[address] NRBC% 0.1 /100{WBC} Normal 0-0.5 [facility] Comment on above: Performed By: #### S CAN CBC, CK, HS TROP, BNP, PT, PTT ####[address] Ovalocytes Slight Normal [facility] Comment on above: Performed By: #### S CAN CBC, CK, HS TROP, BNP, PT, PTT ####[address] Platelet Estimate Normal Normal Normal [facility] Comment on above: Performed By: #### S CAN CBC, CK, HS TROP, BNP, PT, PTT ####[address] Platelet mean volume (Bld) [Entitic vol] 7.7 fL Normal 6.3-10.7 [facility] Comment on above: Performed By: #### S CAN CBC, CK, HS TROP, BNP, PT, PTT ####[address] Platelet Morphology Normal Normal Normal [facility] Comment on above: Result Comment: PERF ORMED BY: [facility] [address] [place] [address] PATHOLOGIST HOME HEALTH MANAGER RAMEZ MONTES M.D. Performed By: #### S CAN CBC, CK, HS TROP, BNP, PT, PTT ####[place] [id number] [facility] Platelets (Bld) [#/Vol] 383 10*3/uL Normal 150-450 [facility] Comment on above: Performed By: #### S CAN CBC, CK, HS TROP, BNP, PT, PTT ####[address] Poikilocytosis Moderate Normal [facility] Comment on above: Performed By: #### S CAN CBC, CK, HS TROP, BNP, PT, PTT ####[address] RBC (Bld) [#/Vol] 3.54 10*6/uL Low 3.60-5.00 [facility] Comment on above: Performed By: #### S CAN CBC, CK, HS TROP, BNP, PT, PTT ####[place] [id number] [facility] WBC (Bld) [#/Vol] 6.3 10*3/uL Normal 3.8-11.6 [facility] Comment on above: Performed By: #### S CAN CBC, CK, HS TROP, BNP, PT, PTT ####[address] WBC (Bld) [#/Vol] 7.6 10*3/uL Normal 3.8-11.6 [facility] Comment on above: Performed By: #### S CAN CBC, CK, HS TROP, BNP, PT, PTT ####[place] [id number] [place] [id number] [facility] Serum or plasma albumin/glob ulin mass ratioOrdered By: Jorge L Cruz on 02-12-2025 Albumin/Globulin [Mass ratio] Serum or plasma albumin/globulin mass ratio [facility] Serum or plasma anion gap de terminationOrdered By: Jorge L Cruz on 02-12-2025 Anion gap [Moles/Vol] Serum or plasma an ion gap determination 6.0-15.0 [facility] Sodium [Moles/volume] in Ser um or PlasmaOrdered By: Jorge L Caldwellisabell on 02-12-2025 Sodium [Moles/Vol] Sodium [Moles/volume ] in Serum or Plasma 136-145 [facility] Thyroid Stimulating Hormoneo n 02-12-2025 TSH Qn 6.48 m[IU]/L High 0.45-5.33 [facility] Comment on above: Result Comment: PERF ORMED BY: [place] [address] PATHOLOGIST HOME HEALTH MANAGER RAMEZ MONTES M.D. Performed By: #### T SH3, CMP, MG #### [facility] [address] [place] [address] Thyrotropin [Units/volume] i n Serum or PlasmaOrdered By: Jorge L Cruz on 02-12-2025 TSH Qn Thyrotropin [Units/volume] in Serum or Plasma High 0.45-5.33 [facility] Troponin I High Sensitivityo n 02-12-2025 Troponin I High Sensitivity 10 Normal 0-15 [facility] Comment on above: Result Comment: The Troponin units of report have been changed to meet the Chest Pain Accreditation requirement, element EC5.M1l2. Troponin units are changed from pg/ml to ng/L. Also, the decimal is removed and results are in whole numbers. PERFORMED BY: [place] [address] PATHOLOGIST HOME HEALTH MANAGER RAMEZ MONTES M.D. Performed By: #### H S TROP ####[place] [address] [facility] Troponin I High Sensitivity 10 Normal 0-15 [facility] Comment on above: Result Comment: The Troponin units of report have been changed to meet the Chest Pain Accreditation requirement, element EC5.M1l2. Troponin units are changed from pg/ml to ng/L. Also, the decimal is removed and results are in whole numbers. PERFORMED BY: [place] [address] PATHOLOGIST HOME HEALTH MANAGER RAMEZ MONTES M.D. Performed By: #### S CAN CBC, CK, HS TROP, BNP, PT, PTT ####[facility] [address] Troponin I.cardiac [Mass/vol ume] in Serum or Plasma by Detection limit <= 0.01 ng/Ordered By: Jorge L Cruz on 02-12-2025 Troponin I.cardiac DL <= 0.01 ng/mL [Mass/Vol] Troponin I.cardiac [Mass/volume] in Serum or Plasma by Detection limit <= 0.01 ng/ 0-15 [facility] Comment on above: The Troponin units o [...] [Mass/volume] in Serum or Plasma High 7-25 [facility] WBC Auto (Bld) [#/Vol]Ordere d By: Jorge L Cruz on 02-12-2025 WBC (Bld) [#/Vol] Leukocytes [#/volume ] in Blood by Automated count 3.8-11.6 [facility] XR chest 2V*on 02-12-2025 XR chest 2V* [facility] [address] [place] [address] [place] [address] XRay Report Signed Patient: Lashaun Joaquin MR#: [id number] : 1940 Acct:[id number] Age/Sex: 84 / F ADM Date: 02/12/25 Loc: ER Room: Type: [facility] ER Attending Dr: Copies to: Jorge L [...] Lyon Jr., D.OManuel02/12/2025 8:16 AM Dictation Location: [place] [address] Transcribed By: [facility] 02/12/25815 Dictated By: Epifanio Lyon Jr, DO 02/12/25815 Signed By: 02/12/25815 Normal [facility] aPTT in Platelet poor plasma by Coagulation assayOrdered By: Jorge L Cruz on 02-12-2025 aPTT Coag (PPP) [Time] Activated partial thromboplastin time (aPTT) in platelet poor plasma by coagulation a 25.1-36.5 [facility] Comment on above: A hematocrit value g reater than 55% may lead to inaccurate results in coagulation testing. Patients having hematocrit values >55% require a special collection tube for coagulation studies. Please contact the laboratory at [phone] for redraw instructions[place] [address] Ultrasound Report Signed Patient: LASHAUN JOAQUIN MR#: [id number] : 1940 Acct:[id number] Age/Sex: 84 / F ADM Date: 02/10/25 Loc: US Attending Dr: Reyna Esparza M.D. Ordering Physician: Reyna Esparza M.D. Date of Service: 02/10/25 Procedure(s): US thyroid Accession Number(s): [id number] cc: Nathan Hathaway D.O.; Reyna Esparza M.D. [place] [id number] Patient Name: LASHAUN JOAQUIN MRN: [facility]:[id number] date: 1940 Sex: F Assigned Patient Location: US Current Patient Location: US Accession/Order Number: [id number] Exam Date: 02/10/2025 11:24 Report Date: 02/10/2025 [...] Shelli Israel M.D.02/10/2025 11:33 AM Dictation Location: [place] [address] Electronically authenticated by: [id number] Y Date: 02/10/2025 11:33 Dictated By: Shelli Israel M.D. Signed By: 02/10/25 1136 DD/ 1133 TD/TT: Parish Visitor: [facility] Radiology, Radiologi MD tana - 02/10/[address] [address] Ultrasound Report Signed Patient: LASHAUN JOAQUIN MR#: [id number] : 1940 Acct:[id number] Age/Sex: 84 / F ADM Date: 02/10/25 Loc: US Attending Dr: Reyna Esparza M.D. Ordering Physician: Reyna Esparza M.D. Date of Service: 02/10/25 Procedure(s): US thyroid Accession Number(s): [id number] cc: Nathan Hathaway D.O.; Reyna Esparza M.D. [place] [id number] Patient Name: LASHAUN JOAQUIN MRN: [id number] date: 1940 Sex: F Assigned Patient Location: US Current Patient Location: US Accession/Order Number: [id number] Exam Date: 02/10/2025 11:24 Report Date: 02/10/2025 [...] Shelli Israel M.D.02/10/2025 11:33 AM Dictation Location: [place] [address] Electronically authenticated by: [id number] Y Date: 02/10/2025 11:33 Dictated By: Shelli Israel M.D. Signed By: 02/10/25 1136 DD/ 1133 TD/TT: Parish Visitor: [facility] Radiology Study observation (narrative) [facility] US Thyroid glandOrdered By: Radiologist Radiology on 02-10-2025 [facility] Work Phone: Estimated glomerular filtrat ion rate (GFR) non- Americanon 01-23-2025 GFR/1.73 sq M.predicted among non-blacks MDRD (S/P/Bld) [Vol rate/Area] Estimated glomerular filtration rate (GFR) non- Low >=60 mL/min/1.73 m 2 [facility] Laboratory - Chemistry and C hemistry - challengeon 01-23-2025 Calcium [Mass/Vol] 8.9 mg/dL 8.5-10.1 [facility] Chloride [Moles/Vol] 106 mmol/L 98-107 [facility] CO2 [Moles/Vol] 28.0 mmol/L 21.0-32.0 [facility] Creatinine [Mass/Vol] 1.42 mg/dL High 0.55-1.02 [facility] GFR/1.73 sq M.predicted MDRD (S/P/Bld) [Vol rate/Area] 43 mL/min/{1.73_m2} Low >=60 mL/min/1.73 m 2 [facility] Glucose [Mass/Vol] 116 mg/dL High 74-106 [facility] Potassium [Moles/Vol] 3.9 mmol/L 3.5-5.1 [facility] Sodium [Moles/Vol] 145 mmol/L 136-145 [facility] Urea nitrogen [Mass/Vol] 21.0 mg/dL High 7.0-18.0 [facility] Urea nitrogen/Creatinine [Mass ratio] 14.8 mg/mg [facility] Serum or plasma anion gap de terminationon 01-23-2025 Anion gap [Moles/Vol] Serum or plasma an ion gap determination [facility] Laboratory - Chemistry and C hemistry - challengeon 12-29-2024 Bilirubin Ql (U) Negative [facility] Glucose (U) [Mass/Vol] Negative [facility] Ketones Ql (U) Negative [facility] pH (U) 5 [pH] [facility] Specific gravity (U) [Rel density] 1.000 [facility] Urobilinogen (U) [Mass/Vol] Negative [facility] Laboratory - Specimen inform ationon 12-29-2024 Appearance (U) clear [facility] Color (U) yellow [facility] Laboratory - Urinalysison Leukocyte esterase Test strip Ql (U) Negative [facility] Nitrite Ql (U) Negative [facility] Protein Ql (U) 0.2 [facility] No Panel Informationon 12-29 Urine Occult Blood ++ [facility] Estimated glomerular filtrat ion rate (GFR) non- Americanon 12-18-2024 GFR/1.73 sq M.predicted among non-blacks MDRD (S/P/Bld) [Vol rate/Area] Estimated glomerular filtration rate (GFR) non- Low >=60 mL/min/1.73 m 2 [facility] Laboratory - Chemistry and C hemistry - challengeon 12-18-2024 Calcium [Mass/Vol] 8.9 mg/dL 8.5-10.1 [facility] Chloride [Moles/Vol] 105 mmol/L 98-107 [facility] CO2 [Moles/Vol] 30.4 mmol/L 21.0-32.0 [facility] Creatinine [Mass/Vol] 1.57 mg/dL High 0.55-1.02 [facility] Free T4 [Mass/Vol] 0.90 ng/dL 0.76-1.46 [facility] GFR/1.73 sq M.predicted MDRD (S/P/Bld) [Vol rate/Area] 38 mL/min/{1.73_m2} Low >=60 mL/min/1.73 m 2 [facility] Glucose [Mass/Vol] 119 mg/dL High 74-106 [facility] Potassium [Moles/Vol] 4.1 mmol/L 3.5-5.1 [facility] Sodium [Moles/Vol] 143 mmol/L 136-145 [facility] TSH Qn 2.650 m[IU]/L 0.358-3.740 [facility] Urea nitrogen [Mass/Vol] 28.0 mg/dL High 7.0-18.0 [facility] Urea nitrogen/Creatinine [Mass ratio] 17.8 mg/mg [facility] Serum or plasma anion gap de terminationon 12-18-2024 Anion gap [Moles/Vol] Serum or plasma an ion gap determination [facility] INR in Platelet poor plasma by Coagulation assayOrdered By: Nathan Hathaway on 11-17-2024 INR Coag (PPP) [Relative time] INR in Platelet poor plasma by Coagulation assay [facility] Comment on above: INR Therapeutic Rang [...] [id number] Received: 11/17/24 Status: SERENITY Rojas Num: [id number] Spec Type: Cytology Subm Dr: Seth Ley DO Tissues: A FNA SLIDES PATH (FNA THYROID) Procedures: -, DIFF QWIK/3, PAPSTN/4 Age/ Patient Sex Location Account Attending Physician Lashaun Joaquin 84/F [id number] Nathan Hathaway DO SPEC NUM: [id number] RECD: 11/17/24-1307 STATUS: SERENITY ROJAS NUM: [id number] JED: 11/17/24- SUBM DR: Seth Ley DO ENTERED: 11/17/24-1308 [facility] [address]: Nathan Hathaway DO SPEC TYPE: Cytology DEPT: CNG ENTERED BY: [id number] RECV BY: [id number] ORDERED: -, DIFF QWIK/3, PAPSTN/4 ORDERED: -, DIFF QWIK/3, PAPSTN/4 Pathological Diagnosis Thyroid nodule, US-guided FNA: Satisfactory for evaluation. Benign ([place] category I). Clinical Information Thyroid Nodule,adrenal nodule, [...] C25- Received: 11/17/24 Status: SERENITY Rojas Num: [id number] Spec Type: Cytology Subm Dr: Seth Ley DO Tissues: A FNA SLIDES PATH (FNA THYROID) Procedures: -, DIFF QWIK/3, PAPSTN/4 Patient: Karla Joaquinelyn [id number] (Continued) Specimen: [id number] Received: 11/17/24 (Continued) Signed (signature on file) Lala Mast MD 11/18/24 0857 Specimen: [id number] Received: 11/17/24 Status: SERENITY Rojas Num: [id number] Spec Type: Cytology Subm Dr: Seth Ley DO Tissues: A FNA SLIDES PATH (FNA THYROID) Procedures: -, DIFF QWIK/3, PAPSTN/4 Patient: Kemar Joaquinn [id number] (Continued) Specimen: [id number] Received: 11/17/24 (Continued) CPT Codes 47511, 33601 Specimen: [id number] Received: 11/17/24-1308 Status: SERENITY Rojas Num: [id number] Spec Type: Cytology Subm Dr: Seth Ley DO Tissues: A FNA SLIDES PATH (FNA THYROID) Procedures: -, DIFF QWIK/3, PAPSTN/4 Patient: Kemar Joaquinn [id number] (Continued) Signed (signature on file) Lala Mast [...] coagulation studies. Please contact the laboratory at [phone] for redraw instructions. PERFORMED BY: [facility] [address] [place] [address] PATHOLOGIST HOME HEALTH MANAGER RAMEZ MONTES M.D. Performed By: #### P TT, PT #### [facility] [address] [place] [address] [facility] Platelet Counton 11-17-2024 Platelets (Bld) [#/Vol] 253 10*3/uL Normal 150-450 [facility] Comment on above: Result Comment: PERF ORMED BY: [place] [address] PATHOLOGIST HOME HEALTH MANAGER RAMEZ MONTES M.D. Performed By: #### P LT #### [address] Platelets Auto (Bld) [#/Vol] Ordered By: Nathan Hathaway on 11-17-2024 Platelets (Bld) [#/Vol] Platelets [#/volume] in Blood by Automated count 150-450 [facility] Prothrombin Time INRon 11-17 INR Coag (PPP) [...] Performed By: #### P TT, PT #### [address] PT Coag (PPP) [Time] 11.9 s Normal 9.0-12.9 [facility] Comment on above: Result Comment: A he matocrit value greater than 55% may lead to inaccurate results in coagulation testing. Patients having hematocrit values >55% require a special collection tube for coagulation studies. Please contact the laboratory at [phone] for redraw instructions. Performed By: #### P TT, PT #### [address] Prothrombin time (PT)Ordered By: Nathan Hathaway on 11-17-2024 PT Coag (PPP) [Time] Prothrombin time (PT) 9.0- 12.9 [facility] Comment on above: A hematocrit value g reater than 55% may lead to inaccurate results in coagulation testing. Patients having hematocrit values >55% require a special collection tube for coagulation studies. Please contact the laboratory at [phone] for redraw instructions. US needle aspirationon 11-17 US needle aspiration [facility] [address] [place] [address] [place], [place] [id number] Ultrasound Report Signed Patient: Lashaun Joaquin MR#: [id number] : 1940 Acct:[id number] Age/Sex: 84 / F ADM Date: 11/17/24 Loc: Room: Type: [facility] Attending Dr: Nathan Hathaway DO Ordering Provider: [...] Seth Ley M.D.11/17/2024 12:41 PM Dictation Location: [place] [address] Tech: Deja Ruel Transcribed By: [facility] 11/17/24 1241 Dictated By: Seth Ley DO 11/17/24 1159 Signed By: 11/17/24 1241 Normal [facility] aPTT in Platelet poor plasma by Coagulation assayOrdered By: Nathan Hathaway on 11-17-2024 aPTT Coag (PPP) [Time] Activated partial thromboplastin time (aPTT) in platelet poor plasma by coagulation a 25.1-36.5 [facility] Comment on above: A hematocrit value g reater than 55% may lead to inaccurate results in coagulation testing. Patients having hematocrit values >55% require a special collection tube for coagulation studies. Please contact the laboratory at [phone] for redraw instructions. Estimated glomerular filtrat ion rate (GFR) non- Americanon 09-12-2024 GFR/1.73 sq M.predicted among non-blacks MDRD (S/P/Bld) [Vol rate/Area] Estimated glomerular filtration rate (GFR) non- Low >=60 mL/min/1.73 m 2 [facility] Laboratory - Chemistry and C hemistry - challengeon 09-12-2024 Calcium [Mass/Vol] 8.6 mg/dL 8.5-10.1 [facility] Chloride [Moles/Vol] 108 mmol/L High 98-107 [facility] CO2 [Moles/Vol] 27.0 mmol/L 21.0-32.0 [facility] Creatinine [Mass/Vol] 1.39 mg/dL High 0.55-1.02 [facility] Free T4 [Mass/Vol] 0.80 ng/dL 0.76-1.46 [facility] GFR/1.73 sq M.predicted MDRD (S/P/Bld) [Vol rate/Area] 44 mL/min/{1.73_m2} Low >=60 mL/min/1.73 m 2 [facility] Glucose [Mass/Vol] 85 mg/dL 74-106 [facility] Potassium [Moles/Vol] 4.5 mmol/L 3.5-5.1 [facility] Sodium [Moles/Vol] 144 mmol/L 136-145 [facility] TSH Qn 3.767 m[IU]/L High 0.358-3.740 [facility] Urea nitrogen [Mass/Vol] 20.0 mg/dL High 7.0-18.0 [facility] Urea nitrogen/Creatinine [Mass ratio] 14.4 mg/mg [facility] Serum or plasma anion gap de terminationon 09-12-2024 Anion gap [Moles/Vol] Serum or plasma an ion gap determination [facility] Estimated glomerular filtrat ion rate (GFR) non- Americanon 05-20-2024 GFR/1.73 sq M.predicted among non-blacks MDRD (S/P/Bld) [Vol rate/Area] 39 mL/min/{1.73_m2} Low >=60 [facility] Laboratory - Chemistry and C hemistry - challengeon 05-20-2024 Calcium [Mass/Vol] 8.8 mg/dL 8.5-10.1 [facility] Chloride [Moles/Vol] 106 mmol/L 98-107 [facility] CO2 [Moles/Vol] 30.8 mmol/L 21.0-32.0 [facility] Creatinine [Mass/Vol] 1.30 mg/dL High 0.55-1.02 [facility] GFR/1.73 sq M.predicted MDRD (S/P/Bld) [Vol rate/Area] 48 mL/min/{1.73_m2} Low >=60 [facility] Glucose [Mass/Vol] 89 mg/dL 74-106 [facility] Potassium [Moles/Vol] 4.3 mmol/L 3.5-5.1 [facility] Sodium [Moles/Vol] 143 mmol/L 136-145 [facility] Urea nitrogen [Mass/Vol] 24.0 mg/dL High 7.0-18.0 [facility] Urea nitrogen/Creatinine [Mass ratio] 18.5 mg/mg [facility] Serum or plasma anion gap de terminationon 05-20-2024 Anion gap [Moles/Vol] 10.5 mmol/L [facility] Estimated glomerular filtrat ion rate (GFR) non- Americanon 04-30-2024 GFR/1.73 sq M.predicted among non-blacks MDRD (S/P/Bld) [Vol rate/Area] 37 mL/min/{1.73_m2} Low >=60 [facility] Laboratory - Chemistry and C hemistry - challengeon 04-30-2024 Calcium [Mass/Vol] 8.5 mg/dL 8.5-10.1 [facility] Chloride [Moles/Vol] 106 mmol/L 98-107 [facility] CO2 [Moles/Vol] 28.7 mmol/L 21.0-32.0 [facility] Creatinine [Mass/Vol] 1.36 mg/dL High 0.55-1.02 [facility] GFR/1.73 sq M.predicted MDRD (S/P/Bld) [Vol rate/Area] 45 mL/min/{1.73_m2} Low >=60 [facility] Glucose [Mass/Vol] 98 mg/dL 74-106 [facility] Potassium [Moles/Vol] 4.3 mmol/L 3.5-5.1 [facility] Sodium [Moles/Vol] 142 mmol/L 136-145 [facility] Urea nitrogen [Mass/Vol] 26.0 mg/dL High 7.0-18.0 [facility] Urea nitrogen/Creatinine [Mass ratio] 19.1 mg/mg [facility] Serum or plasma anion gap de terminationon 04-30-2024 Anion gap [Moles/Vol] 11.6 mmol/L [facility] NM Heart Perfusion W stress and [...] Faustino Zuniga 03/12/2024 4:34 PM Dictation workstation: [id number] Interpreted By: Faustino Zuniga and Giannuzzi Michael STUDY: MYOCARDIAL PERFUSION STRESS TEST WITH LEXISCAN Performing facility: [facility], [address] [place] [address], [address], [address] Provider: Holden Rosado RN, PHOTOSTATIC COPY MAKER PCP: Dr. Ksenia Hathaway Supervising provider: Anthony Perry DO, [facility] INDICATION: ASHD HISTORY: Gender: F; Age: 83 y/o ; Height: HT 165.1 cm cm; Weight: WT 88.905 kg kg. CAD; High Cholesterol; HTN; Fatigue; Quit smoking 44 years ago. Cardiac catheterization on 2022. PTCA on 2022. COMPARISON: Previous nuclear testing completed [id number] at [facility]. ACCESSION NUMBER(S): [id number] ORDERING CLINICIAN: HOLDEN ROSADO TECHNIQUE: ONE DAY [...] PERFUSION STRESS TEST WITH LEXISCAN Performing facility: [facility], [address] [place] [address], [address], [address] Provider: Holden Rosado RN, PHOTOSTATIC COPY MAKER PCP: Dr. Ksenia Hathaway Supervising provider: Anthony Perry DO, [facility] INDICATION: ASHD HISTORY: Gender: F; Age: 83 y/o ; Height: HT 165.1 cm cm; Weight: WT 88.905 kg kg. CAD; High Cholesterol; HTN; Fatigue; Quit smoking 44 years ago. Cardiac catheterization on 2022. PTCA on 2022. COMPARISON: Previous nuclear testing completed at [facility]. ACCESSION NUMBER(S): [id number] ORDERING CLINICIAN: HOLDEN ROSADO TECHNIQUE: ONE DAY [...] Faustino Zuniga 03/12/2024 4:34 PM Dictation workstation: [id number] [facility] Work Phone: Radiology Study observation (narrative) [facility] Work Phone: NM Heart Perfusion W stress and W radionuclide IVOrdered By: Faustino Zuniga on 03-12-2024 [facility] Work Phone: Basic Metabolic Panelon GFR/1.73 sq M.predicted MDRD (S/P/Bld) [Vol rate/Area] 39.134 mL/min/{1.73_m2} Normal [facility] Comment on above: Performed By: #### B ####[facility] [place] [address] [facility] Calcium [Mass/volume] in Ser um or PlasmaOrdered By: Holden Rosado on 03-05-2024 Calcium [Mass/Vol] 9.2 mg/dL Normal 8.6-10.3 [facility] Comment on above: Result Comment: PERF ORMED BY: [facility] [address] [id number] PATHOLOGIST HOME HEALTH MANAGER JAMAAL MO M.D. Performed By: #### B MP ####[place] [id number] [place] [id number] [facility] Carbon dioxide, total [Moles /volume] in Serum or PlasmaOrdered By: Holden Rosado on 03-05-2024 CO2 [Moles/Vol] 32.1 mmol/L High 21.0-31.0 [facility] Comment on above: Performed By: #### B MP ####[place] [id number] [place] [id number] [facility] Chloride [Moles/volume] in S courtney or PlasmaOrdered By: Holden Rosado on 03-05-2024 Chloride [Moles/Vol] 104 mmol/L Normal 98-107 [facility] Comment on above: Performed By: #### B MP ####[place] [id number] [facility] Creatinine [Mass/volume] in Serum or PlasmaOrdered By: Holden Rosado on 03-05-2024 Creatinine [Mass/Vol] 1.36 mg/dL High 0.60-1.20 [facility] Comment on above: Performed By: #### B MP ####[place] [id number] [facility] Glucose [Mass/volume] in Ser um or PlasmaOrdered By: Holden Rosado on 03-05-2024 Glucose [Mass/Vol] 79 mg/dL Normal 70-100 [facility] Comment on above: ADA recommended refe rence rangeRandom Glucose Reference Range is dependent on time and content of last meal. Glucose of more than 200 mg/dL in a nonstressed, ambulatory subject supports the diagnosis of Diabetes Mellitus. Result Comment: [place] om Glucose Reference Range is dependent on time and content of last meal. Glucose of more than 200 mg/dL in a nonstressed, ambulatory subject supports the diagnosis of Diabetes Mellitus. ADA recommended reference range Performed By: #### B MP ####[address] No Panel InformationOrdered By: Holden Rosado on 03-05-2024 Estimated GFR (CKD-EPI) 39.134 mL/Min [facility] Creatinine Clearance (Chem N/A [facility] Potassium [Moles/volume] in Serum or PlasmaOrdered By: Holden Rosado on 03-05-2024 Potassium [Moles/Vol] 5.2 mmol/L High 3.5-5.1 [facility] Comment on above: Performed By: #### B MP ####[address] Serum or plasma anion gap de terminationOrdered By: Holden Rosado on 03-05-2024 Anion gap [Moles/Vol] 10.1 mmol/L Normal 6.0-15.0 [facility] Comment on above: Performed By: #### B MP ####[address] Sodium [Moles/volume] in Ser um or PlasmaOrdered By: Holden Rosado on 03-05-2024 Sodium [Moles/Vol] 141 mmol/L Normal 136-145 [facility] Comment on above: Performed By: #### B MP ####[address] Urea nitrogen [Mass/volume] in Serum or PlasmaOrdered By: Holden Rosado on 03-05-2024 Urea nitrogen [Mass/Vol] 26 mg/dL High 7-25 [facility] Comment on above: Performed By: #### B MP ####[address] Basophils Auto (Bld) [#/Vol] on 02-20-2024 Basophils (Bld) [#/Vol] 0.0 10 3/uL 0.0-0.1 [facility] Basophils/100 WBC Auto (Bld) on 02-20-2024 Basophils/100 WBC (Bld) 0.8 % 0.2-2.0 [facility] Eosinophils/100 WBC Auto (Bl d)on 02-20-2024 Eosinophils/100 WBC (Bld) 2.8 % 0.9-7.0 [facility] Erythrocyte distribution wid th Auto (RBC) [Ratio]on 02-20-2024 Erythrocyte distribution width (RBC) [Ratio] 13.1 % 11.0-15.0 [facility] Estimated glomerular filtrat ion rate (GFR) non- Americanon 02-20-2024 GFR/1.73 sq M.predicted among non-blacks MDRD (S/P/Bld) [Vol rate/Area] 49 mL/min/{1.73_m2} >=60 [facility] Globulin Calc (S) [Mass/Vol] on 02-20-2024 Globulin (S) [Mass/Vol] 2.7 g/dL [facility] Hematocrit Auto (Bld) [Volum e fraction]on 02-20-2024 Hematocrit (Bld) [Volume fraction] 29.2 % 36.0-48.0 [facility] Hemoglobin [Mass/volume] in Bloodon 02-20-2024 Hemoglobin (Bld) [Mass/Vol] 9.5 g/dL 12.0-16.0 [facility] Laboratory - Chemistry and C hemistry - challengeon 02-20-2024 Albumin [Mass/Vol] 2.9 g/dL 3.4-5.0 [facility] ALP [Catalytic activity/Vol] 44 U/L 46-116 [facility] ALT [Catalytic activity/Vol] 13 U/L 14-59 [facility] AST [Catalytic activity/Vol] 14 U/L 15-37 [facility] Bilirubin [Mass/Vol] 0.6 mg/dL 0.2-1.0 [facility] Calcium [Mass/Vol] 8.9 mg/dL 8.5-10.1 [facility] Chloride [Moles/Vol] 107 mmol/L 98-107 [facility] CO2 [Moles/Vol] 27.9 mmol/L 21.0-32.0 [facility] Creatinine [Mass/Vol] 1.08 mg/dL 0.55-1.02 [facility] GFR/1.73 sq M.predicted MDRD (S/P/Bld) [Vol rate/Area] 59 mL/min/{1.73_m2} >=60 [facility] Glucose [Mass/Vol] 83 mg/dL 74-106 [facility] Potassium [Moles/Vol] 3.8 mmol/L 3.5-5.1 [facility] Protein [Mass/Vol] 5.6 g/dL 6.4-8.2 [facility] Sodium [Moles/Vol] 141 mmol/L 136-145 [facility] Urea nitrogen [Mass/Vol] 18.0 mg/dL 7.0-18.0 [facility] Urea nitrogen/Creatinine [Mass ratio] 16.7 mg/mg [facility] Laboratory - Hematology and Cell countson 02-20-2024 Immature granulocytes/100 WBC (Bld) 0.2 % 0.0-0.5 [facility] Leukocytes [#/volume] correc miguel for nucleated erythrocytes in Blood by Automated counon 02-20-2024 WBC corrected for nucl RBC Auto (Bld) [#/Vol] 4.7 10 3/uL 4.0-11.0 [facility] Lymphocytes Auto (Bld) [#/Vo l]on 02-20-2024 Lymphocytes (Bld) [#/Vol] 1.0 10 3/uL 1.2-3.8 [facility] Lymphocytes/100 WBC Auto (Bl d)on 02-20-2024 Lymphocytes/100 WBC (Bld) 21.8 % 20.5-60.0 [facility] MCH Auto (RBC) [Entitic mass ]on 02-20-2024 MCH (RBC) [Entitic mass] 29.2 pg 26.7-34.0 [facility] MCHC Auto (RBC) [Mass/Vol]on 02-20-2024 MCHC (RBC) [Mass/Vol] 32.5 g/dL 29.9-35.2 [facility] MCV Auto (RBC) [Entitic vol] on 02-20-2024 MCV (RBC) [Entitic vol] 89.8 fL 81.0-99.0 [facility] Monocytes Auto (Bld) [#/Vol] on 02-20-2024 Monocytes (Bld) [#/Vol] 0.7 10 3/uL 0.3-0.8 [facility] Monocytes/100 WBC Auto (Bld) on 02-20-2024 Monocytes/100 WBC (Bld) 14.2 % 1.7-12.0 [facility] Neutrophils Auto (Bld) [#/Vo l]on 02-20-2024 Neutrophils (Bld) [#/Vol] 2.8 10 3/uL 1.4-6.5 [facility] Neutrophils/100 WBC Auto (Bl d)on 02-20-2024 Neutrophils/100 WBC (Bld) 60.2 % 43.0-75.0 [facility] No Panel Informationon 02-19 Eosinophils # (Auto) 0.1 10 3/uL 0.0-0.7 [facility] Immature Granulocyte # (Auto) 0.01 10 3/uL 0.00-0.03 [facility] Platelet mean volume Auto (B ld) [Entitic vol]on 02-20-2024 Platelet mean volume (Bld) [Entitic vol] 10.5 fL 9.5-13.5 [facility] Platelets Auto (Bld) [#/Vol] on 02-20-2024 Platelets (Bld) [#/Vol] 250 10 3/uL 150-450 [facility] RBC Auto (Bld) [#/Vol]on RBC (Bld) [#/Vol] 3.25 10 6/uL 4.20-5.40 [facility] Serum or plasma albumin/glob ulin mass ratioon 02-20-2024 Albumin/Globulin [Mass ratio] 1.1 {ratio} [facility] Serum or plasma anion gap de terminationon 02-20-2024 Anion gap [Moles/Vol] 9.9 mmol/L [facility] Basophils Auto (Bld) [#/Vol] on 02-19-2024 Basophils (Bld) [#/Vol] 0.0 10 3/uL 0.0-0.1 [facility] Basophils/100 WBC Auto (Bld) on 02-19-2024 Basophils/100 WBC (Bld) 0.8 % 0.2-2.0 [facility] Cholesterol in LDL Calc [Mas s/Vol]on 02-19-2024 Cholesterol in LDL [Mass/Vol] 100.4 mg/dL [facility] Comment on above: <100 mg/dl [id number] 0-129 mg/dl NEAR OR ABOVE [id number] mg/dl BORDERLINE [id number] mg/dl HIGH>190 mg/dl VERY HIGH Cholesterol in VLDL Calc [Ma ss/Vol]on 02-19-2024 Cholesterol in VLDL [Mass/Vol] 15.6 mg/dL [facility] Eosinophils/100 WBC Auto (Bl d)on 02-19-2024 Eosinophils/100 WBC (Bld) 1.9 % 0.9-7.0 [facility] Erythrocyte distribution wid th Auto (RBC) [Ratio]on 02-19-2024 Erythrocyte distribution width (RBC) [Ratio] 13.2 % 11.0-15.0 [facility] Estimated glomerular filtrat ion rate (GFR) non- Americanon 02-19-2024 GFR/1.73 sq M.predicted among non-blacks MDRD (S/P/Bld) [Vol rate/Area] 44 mL/min/{1.73_m2} >=60 [facility] Globulin Calc (S) [Mass/Vol] on 02-19-2024 Globulin (S) [Mass/Vol] 2.8 g/dL [facility] Hematocrit Auto (Bld) [Volum e fraction]on 02-19-2024 Hematocrit (Bld) [Volume fraction] 31.2 % 36.0-48.0 [facility] Hemoglobin [Mass/volume] in Bloodon 02-19-2024 Hemoglobin (Bld) [Mass/Vol] 10.0 g/dL 12.0-16.0 [facility] Laboratory - Chemistry and C hemistry - challengeon 02-19-2024 Albumin [Mass/Vol] 3.2 g/dL 3.4-5.0 [facility] ALP [Catalytic activity/Vol] 49 U/L 46-116 [facility] ALT [Catalytic activity/Vol] 15 U/L 14-59 [facility] AST [Catalytic activity/Vol] 15 U/L 15-37 [facility] Bilirubin [Mass/Vol] 0.5 mg/dL 0.2-1.0 [facility] Calcium [Mass/Vol] 9.4 mg/dL 8.5-10.1 [facility] Chloride [Moles/Vol] 108 mmol/L 98-107 [facility] Cholesterol [Mass/Vol] 158 mg/dL <=200 [facility] Cholesterol in HDL [Mass/Vol] 42 mg/dL 40-60 [facility] Comment on above: > or =60 mg/dl - LOW CARDIOVASCULAR RISK<40 mg/dl - HIGH CARDIOVASCULAR RISK CO2 [Moles/Vol] 28.7 mmol/L 21.0-32.0 [facility] Creatinine [Mass/Vol] 1.18 mg/dL 0.55-1.02 [facility] GFR/1.73 sq M.predicted MDRD (S/P/Bld) [Vol rate/Area] 53 mL/min/{1.73_m2} >=60 [facility] Glucose [Mass/Vol] 93 mg/dL 74-106 [facility] Potassium [Moles/Vol] 4.0 mmol/L 3.5-5.1 [facility] Protein [Mass/Vol] 6.0 g/dL 6.4-8.2 [facility] Sodium [Moles/Vol] 145 mmol/L 136-145 [facility] Triglyceride [Mass/Vol] 78 mg/dL <=150 [facility] TSH Qn 4.696 m[IU]/L 0.358-3.740 [facility] Urea nitrogen [Mass/Vol] 20.0 mg/dL 7.0-18.0 [facility] Urea nitrogen/Creatinine [Mass ratio] 16.9 mg/mg [facility] Laboratory - Hematology and Cell countson 02-19-2024 Immature granulocytes/100 WBC (Bld) 0.6 % 0.0-0.5 [facility] Leukocytes [#/volume] correc miguel for nucleated erythrocytes in Blood by Automated counon 02-19-2024 WBC corrected for nucl RBC Auto (Bld) [#/Vol] 5.3 10 3/uL 4.0-11.0 [facility] Lymphocytes Auto (Bld) [#/Vo l]on 02-19-2024 Lymphocytes (Bld) [#/Vol] 1.1 10 3/uL 1.2-3.8 [facility] Lymphocytes/100 WBC Auto (Bl d)on 02-19-2024 Lymphocytes/100 WBC (Bld) 21.3 % 20.5-60.0 [facility] MCH Auto (RBC) [Entitic mass ]on 02-19-2024 MCH (RBC) [Entitic mass] 29.6 pg 26.7-34.0 [facility] MCHC Auto (RBC) [Mass/Vol]on 02-19-2024 MCHC (RBC) [Mass/Vol] 32.1 g/dL 29.9-35.2 [facility] MCV Auto (RBC) [Entitic vol] on 02-19-2024 MCV (RBC) [Entitic vol] 92.3 fL 81.0-99.0 [facility] Monocytes Auto (Bld) [#/Vol] on 02-19-2024 Monocytes (Bld) [#/Vol] 0.6 10 3/uL 0.3-0.8 [facility] Monocytes/100 WBC Auto (Bld) on 02-19-2024 Monocytes/100 WBC (Bld) 11.1 % 1.7-12.0 [facility] Neutrophils Auto (Bld) [#/Vo l]on 02-19-2024 Neutrophils (Bld) [#/Vol] 3.4 10 3/uL 1.4-6.5 [facility] Neutrophils/100 WBC Auto (Bl d)on 02-19-2024 Neutrophils/100 WBC (Bld) 64.3 % 43.0-75.0 [facility] No Panel Informationon 02-18 Eosinophils # (Auto) 0.1 10 3/uL 0.0-0.7 [facility] Immature Granulocyte # (Auto) 0.03 10 3/uL 0.00-0.03 [facility] Platelet mean volume Auto (B ld) [Entitic vol]on 02-19-2024 Platelet mean volume (Bld) [Entitic vol] 10.4 fL 9.5-13.5 [facility] Platelets Auto (Bld) [#/Vol] on 02-19-2024 Platelets (Bld) [#/Vol] 262 10 3/uL 150-450 [facility] RBC Auto (Bld) [#/Vol]on RBC (Bld) [#/Vol] 3.38 10 6/uL 4.20-5.40 [facility] Serum or plasma albumin/glob ulin mass ratioon 02-19-2024 Albumin/Globulin [Mass ratio] 1.1 {ratio} [facility] Serum or plasma anion gap de terminationon 02-19-2024 Anion gap [Moles/Vol] 12.3 mmol/L [facility] Serum or plasma total choles terol/high density lipoprotein (HDL) cholesterol mass anastasia 02-19-2024 Cholesterol.total/Cho lesterol in HDL [Mass ratio] 3.8 {ratio} [facility] Comment on above: 3.3 - 4.4 LOW RISK4. 4 - 7.1 AVERAGE RISK7.1 - 11.0 MODERATE RISK>11.0 HIGH RISK Basophils Auto (Bld) [#/Vol] on 02-18-2024 Basophils (Bld) [#/Vol] 0.0 10 3/uL 0.0-0.1 [facility] Basophils/100 WBC Auto (Bld) on 02-18-2024 Basophils/100 WBC (Bld) 0.4 % 0.2-2.0 [facility] Eosinophils/100 WBC Auto (Bl d)on 02-18-2024 Eosinophils/100 WBC (Bld) 1.2 % 0.9-7.0 [facility] Erythrocyte distribution wid th Auto (RBC) [Ratio]on 02-18-2024 Erythrocyte distribution width (RBC) [Ratio] 13.2 % 11.0-15.0 [facility] Estimated glomerular filtrat ion rate (GFR) non- Americanon 02-18-2024 GFR/1.73 sq M.predicted among non-blacks MDRD (S/P/Bld) [Vol rate/Area] 34 mL/min/{1.73_m2} >=60 [facility] Hematocrit Auto (Bld) [Volum e fraction]on 02-18-2024 Hematocrit (Bld) [Volume fraction] 31.7 % 36.0-48.0 [facility] Hemoglobin [Mass/volume] in Bloodon 02-18-2024 Hemoglobin (Bld) [Mass/Vol] 10.3 g/dL 12.0-16.0 [facility] Laboratory - Chemistry and C hemistry - challengeon 02-18-2024 Magnesium [Mass/Vol] 2.3 mg/dL 1.8-2.4 [facility] Natriuretic peptide B (Bld) [Mass/Vol] 800.0 pg/mL <=1800.0 [facility] Calcium [Mass/Vol] 9.0 mg/dL 8.5-10.1 [facility] Chloride [Moles/Vol] 106 mmol/L 98-107 [facility] CO2 [Moles/Vol] 30.4 mmol/L 21.0-32.0 [facility] Creatinine [Mass/Vol] 1.46 mg/dL 0.55-1.02 [facility] GFR/1.73 sq M.predicted MDRD (S/P/Bld) [Vol rate/Area] 42 mL/min/{1.73_m2} >=60 [facility] Glucose [Mass/Vol] 102 mg/dL 74-106 [facility] Potassium [Moles/Vol] 4.1 mmol/L 3.5-5.1 [facility] Sodium [Moles/Vol] 144 mmol/L 136-145 [facility] Urea nitrogen [Mass/Vol] 21.0 mg/dL 7.0-18.0 [facility] Urea nitrogen/Creatinine [Mass ratio] 14.4 mg/mg [facility] Laboratory - Hematology and Cell countson 02-18-2024 Immature granulocytes/100 WBC (Bld) 0.7 % 0.0-0.5 [facility] Leukocytes [#/volume] correc miguel for nucleated erythrocytes in Blood by Automated counon 02-18-2024 WBC corrected for nucl RBC Auto (Bld) [#/Vol] 6.8 10 3/uL 4.0-11.0 [facility] Lymphocytes Auto (Bld) [#/Vo l]on 02-18-2024 Lymphocytes (Bld) [#/Vol] 0.8 10 3/uL 1.2-3.8 [facility] Lymphocytes/100 WBC Auto (Bl d)on 02-18-2024 Lymphocytes/100 WBC (Bld) 11.2 % 20.5-60.0 [facility] MCH Auto (RBC) [Entitic mass ]on 02-18-2024 MCH (RBC) [Entitic mass] 29.3 pg 26.7-34.0 [facility] MCHC Auto (RBC) [Mass/Vol]on 02-18-2024 MCHC (RBC) [Mass/Vol] 32.5 g/dL 29.9-35.2 [facility] MCV Auto (RBC) [Entitic vol] on 02-18-2024 MCV (RBC) [Entitic vol] 90.1 fL 81.0-99.0 [facility] Monocytes Auto (Bld) [#/Vol] on 02-18-2024 Monocytes (Bld) [#/Vol] 0.6 10 3/uL 0.3-0.8 [facility] Monocytes/100 WBC Auto (Bld) on 02-18-2024 Monocytes/100 WBC (Bld) 9.5 % 1.7-12.0 [facility] Neutrophils Auto (Bld) [#/Vo l]on 02-18-2024 Neutrophils (Bld) [#/Vol] 5.2 10 3/uL 1.4-6.5 [facility] Neutrophils/100 WBC Auto (Bl d)on 02-18-2024 Neutrophils/100 WBC (Bld) 77.0 % 43.0-75.0 [facility] No Panel Informationon 02-17 Troponin I High Sensitivity 11.1 pg/mL 4.0-51.3 [facility] Comment on above: CUT-OFF POINTS HAVE [...] (Auto) 0.1 10 3/uL 0.0-0.7 [facility] Immature Granulocyte # (Auto) 0.05 10 3/uL 0.00-0.03 [facility] Platelet mean volume Auto (B ld) [Entitic vol]on 02-18-2024 Platelet mean volume (Bld) [Entitic vol] 10.1 fL 9.5-13.5 [facility] Platelets Auto (Bld) [#/Vol] on 02-18-2024 Platelets (Bld) [#/Vol] 255 10 3/uL 150-450 [facility] RBC Auto (Bld) [#/Vol]on RBC (Bld) [#/Vol] 3.52 10 6/uL 4.20-5.40 [facility] Serum or plasma anion gap de terminationon 02-18-2024 Anion gap [Moles/Vol] 11.7 mmol/L [facility] Basophils Auto (Bld) [#/Vol] on 02-02-2024 Basophils (Bld) [#/Vol] 0.1 10 3/uL 0.0-0.1 [facility] Basophils/100 WBC Auto (Bld) on 02-02-2024 Basophils/100 WBC (Bld) 1.1 % 0.2-2.0 [facility] Cholesterol in LDL Calc [Mas s/Vol]on 02-02-2024 Cholesterol in LDL [Mass/Vol] 113.6 mg/dL [facility] Comment on above: <100 mg/dl [id number] 0-129 mg/dl NEAR OR ABOVE [id number] mg/dl BORDERLINE [id number] mg/dl HIGH>190 mg/dl VERY HIGH Cholesterol in VLDL Calc [Ma ss/Vol]on 02-02-2024 Cholesterol in VLDL [Mass/Vol] 10.4 mg/dL [facility] Eosinophils/100 WBC Auto (Bl d)on 02-02-2024 Eosinophils/100 WBC (Bld) 2.3 % 0.9-7.0 [facility] Erythrocyte distribution wid th Auto (RBC) [Ratio]on 02-02-2024 Erythrocyte distribution width (RBC) [Ratio] 13.1 % 11.0-15.0 [facility] Estimated glomerular filtrat ion rate (GFR) non- Americanon 02-02-2024 GFR/1.73 sq M.predicted among non-blacks MDRD (S/P/Bld) [Vol rate/Area] 34 mL/min/{1.73_m2} >=60 [facility] Globulin Calc (S) [Mass/Vol] on 02-02-2024 Globulin (S) [Mass/Vol] 3.0 g/dL [facility] Hematocrit Auto (Bld) [Volum e fraction]on 02-02-2024 Hematocrit (Bld) [Volume fraction] 34.7 % 36.0-48.0 [facility] Hemoglobin [Mass/volume] in Bloodon 02-02-2024 Hemoglobin (Bld) [Mass/Vol] 10.9 g/dL 12.0-16.0 [facility] Laboratory - Chemistry and C hemistry - challengeon 02-02-2024 Albumin [Mass/Vol] 3.4 g/dL 3.4-5.0 [facility] ALP [Catalytic activity/Vol] 52 U/L 46-116 [facility] ALT [Catalytic activity/Vol] 13 U/L 14-59 [facility] AST [Catalytic activity/Vol] 14 U/L 15-37 [facility] Bilirubin [Mass/Vol] 0.3 mg/dL 0.2-1.0 [facility] Calcium [Mass/Vol] 9.3 mg/dL 8.5-10.1 [facility] Chloride [Moles/Vol] 109 mmol/L 98-107 [facility] Cholesterol [Mass/Vol] 169 mg/dL <=200 [facility] Cholesterol in HDL [Mass/Vol] 45 mg/dL 40-60 [facility] Comment on above: > or =60 mg/dl - LOW CARDIOVASCULAR RISK<40 mg/dl - HIGH CARDIOVASCULAR RISK CO2 [Moles/Vol] 29.8 mmol/L 21.0-32.0 [facility] Creatinine [Mass/Vol] 1.47 mg/dL 0.55-1.02 [facility] GFR/1.73 sq M.predicted MDRD (S/P/Bld) [Vol rate/Area] 41 mL/min/{1.73_m2} >=60 [facility] Glucose [Mass/Vol] 104 mg/dL 74-106 [facility] Potassium [Moles/Vol] 4.9 mmol/L 3.5-5.1 [facility] Protein [Mass/Vol] 6.4 g/dL 6.4-8.2 [facility] Sodium [Moles/Vol] 147 mmol/L 136-145 [facility] Triglyceride [Mass/Vol] 52 mg/dL <=150 [facility] TSH Qn 3.613 m[IU]/L 0.358-3.740 [facility] Urea nitrogen [Mass/Vol] 24.0 mg/dL 7.0-18.0 [facility] Urea nitrogen/Creatinine [Mass ratio] 16.3 mg/mg [facility] Laboratory - Hematology and Cell countson 02-02-2024 Immature granulocytes/100 WBC (Bld) 0.4 % 0.0-0.5 [facility] Leukocytes [#/volume] correc miguel for nucleated erythrocytes in Blood by Automated counon 02-02-2024 WBC corrected for nucl RBC Auto (Bld) [#/Vol] 5.6 10 3/uL 4.0-11.0 [facility] Lymphocytes Auto (Bld) [#/Vo l]on 02-02-2024 Lymphocytes (Bld) [#/Vol] 1.1 10 3/uL 1.2-3.8 [facility] Lymphocytes/100 WBC Auto (Bl d)on 02-02-2024 Lymphocytes/100 WBC (Bld) 20.2 % 20.5-60.0 [facility] MCH Auto (RBC) [Entitic mass ]on 02-02-2024 MCH (RBC) [Entitic mass] 29.8 pg 26.7-34.0 [facility] MCHC Auto (RBC) [Mass/Vol]on 02-02-2024 MCHC (RBC) [Mass/Vol] 31.4 g/dL 29.9-35.2 [facility] MCV Auto (RBC) [Entitic vol] on 02-02-2024 MCV (RBC) [Entitic vol] 94.8 fL 81.0-99.0 [facility] Monocytes Auto (Bld) [#/Vol] on 02-02-2024 Monocytes (Bld) [#/Vol] 0.7 10 3/uL 0.3-0.8 [facility] Monocytes/100 WBC Auto (Bld) on 02-02-2024 Monocytes/100 WBC (Bld) 11.7 % 1.7-12.0 [facility] Neutrophils Auto (Bld) [#/Vo l]on 02-02-2024 Neutrophils (Bld) [#/Vol] 3.6 10 3/uL 1.4-6.5 [facility] Neutrophils/100 WBC Auto (Bl d)on 02-02-2024 Neutrophils/100 WBC (Bld) 64.3 % 43.0-75.0 [facility] No Panel Informationon 02-01 Eosinophils # (Auto) 0.1 10 3/uL 0.0-0.7 [facility] Immature Granulocyte # (Auto) 0.02 10 3/uL 0.00-0.03 [facility] Platelet mean volume Auto (B ld) [Entitic vol]on 02-02-2024 Platelet mean volume (Bld) [Entitic vol] 10.6 fL 9.5-13.5 [facility] Platelets Auto (Bld) [#/Vol] on 02-02-2024 Platelets (Bld) [#/Vol] 253 10 3/uL 150-450 [facility] RBC Auto (Bld) [#/Vol]on RBC (Bld) [#/Vol] 3.66 10 6/uL 4.20-5.40 [facility] Serum or plasma albumin/glob ulin mass ratioon 02-02-2024 Albumin/Globulin [Mass ratio] 1.1 {ratio} [facility] Serum or plasma anion gap de terminationon 02-02-2024 Anion gap [Moles/Vol] 13.1 mmol/L [facility] Serum or plasma total choles terol/high density lipoprotein (HDL) cholesterol mass anastasia 02-02-2024 Cholesterol.total/Cho lesterol in HDL [Mass ratio] 3.8 {ratio} [facility] Comment on above: 3.3 - 4.4 LOW RISK4. 4 - 7.1 AVERAGE RISK7.1 - 11.0 MODERATE RISK>11.0 HIGH RISK Basic metabolic 2000 panelon 11-05-2023 Anion gap [Moles/Vol] 9 mmol/L Normal 9-18 [facility] Comment on above: Order Comment: Speci men Type: BLOOD SPECIMEN Ordering Facility: [facility] Address: [address] [address] Performed By: #### 5 7021-8 #### [facility] CLIA [id number] [address] [place] [address] Calcium [Mass/Vol] 9.6 mg/dL Normal 8.5-10.2 [facility] Comment on above: Order Comment: Speci men Type: BLOOD SPECIMEN Ordering Facility: [facility] Address: [address] [address] Performed By: #### 5 7021-8 #### [facility] CLIA [id number] [address] [place] [address] Chloride [Moles/Vol] 103 mmol/L Normal 97-105 [facility] Comment on above: Order Comment: Speci men Type: BLOOD SPECIMEN Ordering Facility: [facility] Address: [address] Performed By: #### 5 7021-8 #### [facility] CLIA [id number] [address] [place] [address]385 CO2 [Moles/Vol] 29 mmol/L Normal 22-30 [facility] Comment on above: Order Comment: Speci men Type: BLOOD SPECIMEN Ordering Facility: [facility] Address: [address] Performed By: #### 5 7021-8 #### [facility] CLIA [id number] [address] [place] [address] Creatinine [Mass/Vol] 1.48 mg/dL High 0.58-0.96 [facility] Comment on above: Order Comment: Preet patino Type: BLOOD SPECIMEN Ordering Facility: [facility] Address: [address] [address] Performed By: #### 5 7021-8 #### [facility] CLIA [id number] [address] [place] [address] Creatinine and Glomerular filtration rate.predicted panel (S/P/Bld) 35 mL/min/1.73m??? Low >=60 [facility] Comment on above: Order Comment: Preet patino Type: BLOOD SPECIMEN Ordering Facility: [facility] Address: [address] [place] [address] Result Comment: Shoshana mated Glomerular Filtration Rate [...] GFR. Performed By: #### 5 7021-8 #### [facility] CLIA [id number] [address] [place] [address] Glucose [Mass/Vol] 138 mg/dL High 74-99 [facility] Comment on above: Order Comment: Preet patino Type: BLOOD SPECIMEN Ordering Facility: [facility] Address: [address] [address] Result Comment: The [place] [employer] (ADA) provides guidance for cutoff [...] Standards of Medical Care in Diabetes 2016, [place] [employer]. Diabetes Care. 2016.39(Suppl 1). Performed By: #### 5 7021-8 #### [facility] CLIA [id number] [address] [place] [address] Potassium [Moles/Vol] 5.0 mmol/L Normal 3.7-5.1 [facility] Comment on above: Order Comment: Speci men Type: BLOOD SPECIMEN Ordering Facility: [facility] Address: [address] [address] Performed By: #### 5 7021-8 #### [facility] CLIA [id number] [address] [place] [address] Sodium [Moles/Vol] 141 mmol/L Normal 136-144 [facility] Comment on above: Order Comment: Speci men Type: BLOOD SPECIMEN Ordering Facility: [facility] Address: [address] [address] Performed By: #### 5 7021-8 #### [facility] CLIA [id number] [address] [place] [address] Urea nitrogen [Mass/Vol] 25 mg/dL High 7-21 [facility] Comment on above: Order Comment: Speci men Type: BLOOD SPECIMEN Ordering Facility: [facility] Address: [address] Performed By: #### 5 7021-8 #### [facility] CLIA [id number] [address] [place] [address] CBC W Auto Differential pane l (Bld)on 11-05-2023 Basophils (Bld) [#/Vol] 0.06 10*3/uL Normal <0.11 [facility] Comment on above: Order Comment: Speci men Type: BLOOD SPECIMEN Ordering Facility: [facility] Address: [address] [place] [address] Performed By: #### K LFRS #### [facility] CLIA [id number] [address] [place] [address] [place] Basophils/100 WBC (Bld) 0.9 % Normal [facility] Comment on above: Order Comment: Speci men Type: BLOOD SPECIMEN Ordering Facility: [facility] Address: [address] [place] [address] Performed By: #### K LFRS #### [facility] CLIA [id number] [address] [place] [address] [place] Differential cell count method Nom (Bld) Auto Normal [facility] Comment on above: Order Comment: Speci men Type: BLOOD SPECIMEN Ordering Facility: [facility] Address: [address] [place] [address] Performed By: #### K LFRS #### [facility] CLIA [id number] [address] [place] [address] [place] Eosinophils (Bld) [#/Vol] 0.10 10*3/uL Normal <0.46 [facility] Comment on above: Order Comment: Speci men Type: BLOOD SPECIMEN Ordering Facility: [facility] Address: [address] [place] [address] Performed By: #### K LFRS #### [facility] CLIA [id number] [address] [place] [address] [place] Eosinophils/100 WBC (Bld) 1.4 % Normal [facility] Comment on above: Order Comment: Speci men Type: BLOOD SPECIMEN Ordering Facility: [facility] Address: [address] [place] [address] Performed By: #### K LFRS #### [facility] CLIA [id number] [address] [place] [address] [place] Erythrocyte distribution width (RBC) [Ratio] 14.1 % Normal 11.5-15.0 [facility] Comment on above: Order Comment: Speci men Type: BLOOD SPECIMEN Ordering Facility: [facility] Address: [address] [place] [address] Performed By: #### K LFRS #### [facility] CLIA [id number] [address] [place] [address] [place] Hematocrit (Bld) [Volume fraction] 31.7 % Low 36.0-46.0 [facility] Comment on above: Order Comment: Speci men Type: BLOOD SPECIMEN Ordering Facility: [facility] Address: [address] [place] [address] Performed By: #### K LFRS #### [facility] CLIA [id number] [address] [place] [address] [place] Hemoglobin (Bld) [Mass/Vol] 10.4 g/dL Low 11.5-15.5 [facility] Comment on above: Order Comment: Speci men Type: BLOOD SPECIMEN Ordering Facility: [facility] Address: [address] [place] [address] Performed By: #### K LFRS #### [facility] CLIA [id number] [address] [place] [address] [place] Immature granulocytes (Bld) [#/Vol] 0.04 10*3/uL Normal <0.10 [facility] Comment on above: Order Comment: Speci men Type: BLOOD SPECIMEN Ordering Facility: [facility] Address: [address] [place] [address] Performed By: #### K LFRS #### [facility] CLIA [id number] [address] [place] [address] [place] Immature granulocytes/100 WBC (Bld) 0.6 % Normal [facility] Comment on above: Order Comment: Speci men Type: BLOOD SPECIMEN Ordering Facility: [facility] Address: [address] [place] [address] Performed By: #### K LFRS #### [facility] CLIA [id number] [address] [place] [address] [place] Lymphocytes (Bld) [#/Vol] 0.89 10*3/uL Low 1.00-4.00 [facility] Comment on above: Order Comment: Speci men Type: BLOOD SPECIMEN Ordering Facility: [facility] Address: [address] [place] [address] Performed By: #### K LFRS #### [facility] CLIA [id number] [address] [place] [address] [place] Lymphocytes/100 WBC (Bld) 12.8 % Normal [facility] Comment on above: Order Comment: Speci men Type: BLOOD SPECIMEN Ordering Facility: [facility] Address: [address] [place] [address] Performed By: #### K LFRS #### [facility] CLIA [id number] [address] [place] [address] [place] MCH (RBC) [Entitic mass] 29.3 pg Normal 26.0-34.0 [facility] Comment on above: Order Comment: Speci men Type: BLOOD SPECIMEN Ordering Facility: [facility] Address: [address] [place] [address] Performed By: #### K LFRS #### [facility] CLIA [id number] [address] [place] [address] [place] MCHC (RBC) [Mass/Vol] 32.8 g/dL Normal 30.5-36.0 [facility] Comment on above: Order Comment: Speci men Type: BLOOD SPECIMEN Ordering Facility: [facility] Address: [address] [place] [address] Performed By: #### K LFRS #### [facility] CLIA [id number] [address] [place] [address] [place] MCV (RBC) [Entitic vol] 89.3 fL Normal 80.0-100.0 [facility] Comment on above: Order Comment: Speci men Type: BLOOD SPECIMEN Ordering Facility: [facility] Address: [address] [place] [address] Performed By: #### K LFRS #### [facility] CLIA [id number] [address] [place] [address] [place] Monocytes (Bld) [#/Vol] 0.69 10*3/uL Normal <0.87 [facility] Comment on above: Order Comment: Speci men Type: BLOOD SPECIMEN Ordering Facility: [facility] Address: [address] [place] [address] Performed By: #### K LFRS #### [facility] CLIA [id number] [address] [place] [address] [place] Monocytes/100 WBC (Bld) 9.9 % Normal [facility] Comment on above: Order Comment: Speci men Type: BLOOD SPECIMEN Ordering Facility: [facility] Address: [address] [place] [address] Performed By: #### K LFRS #### [facility] CLIA [id number] [address] [place] [address] [place] Neutrophils (Bld) [#/Vol] 5.16 10*3/uL Normal 1.45-7.50 [facility] Comment on above: Order Comment: Speci men Type: BLOOD SPECIMEN Ordering Facility: [facility] Address: [address] [place] [address] Performed By: #### K LFRS #### [facility] CLIA [id number] [address] [place] [address] [place] Neutrophils/100 WBC (Bld) 74.4 % Normal [facility] Comment on above: Order Comment: Speci men Type: BLOOD SPECIMEN Ordering Facility: [facility] Address: [address] [place] [address] Performed By: #### K LFRS #### [facility] CLIA [id number] [address] [place] [address] [place] Nucleated RBC (Bld) [#/Vol] 10*3/uL Normal <0.01 [facility] Comment on above: Order Comment: Speci men Type: BLOOD SPECIMEN Ordering Facility: [facility] Address: [address] [place] [address] Performed By: #### K LFRS #### [facility] CLIA [id number] [address] [place] [address] [place] Nucleated RBC/100 WBC (Bld) [Ratio] 0.0 /100 WBC Normal [facility] Comment on above: Order Comment: Speci men Type: BLOOD SPECIMEN Ordering Facility: [facility] Address: [address] [place] [address] Performed By: #### K LFRS #### [facility] CLIA [id number] [address] [place] [address] [place] Platelet mean volume (Bld) [Entitic vol] 9.9 fL Normal 9.0-12.7 [facility] Comment on above: Order Comment: Speci men Type: BLOOD SPECIMEN Ordering Facility: [facility] Address: [address] [place] [address] Performed By: #### K LFRS #### [facility] CLIA [id number] [address] [place] [address] [place] Platelets (Bld) [#/Vol] 262 10*3/uL Normal 150-400 [facility] Comment on above: Order Comment: Speci men Type: BLOOD SPECIMEN Ordering Facility: [facility] Address: [address] [place] [address] Performed By: #### K LFRS #### [facility] CLIA [id number] [address] [place] [address] [place] RBC (Bld) [#/Vol] 3.55 10*6/uL Low 3.90-5.20 [facility] Comment on above: Order Comment: Speci men Type: BLOOD SPECIMEN Ordering Facility: [facility] Address: [address] [place] [address] Performed By: #### K LFRS #### [facility] CLIA [id number] [address] [place] [address] [place] WBC (Bld) [#/Vol] 6.94 10*3/uL Normal 3.70-11.00 [facility] Comment on above: Order Comment: Speci men Type: BLOOD SPECIMEN Ordering Facility: [facility] Address: [address] [place] [address] Performed By: #### K LFRS #### [facility] CLIA [id number] [address] [id number] [place] CNOVSPon 11-05-2023 CNOVSP Visit (SP) Office ([place]) ----- LASHAUN JOAQUIN ([id number]) 1940 F Date Time Provider Department 11/05/23 1:30 PM PAOLO CASILLAS During your visit today, we recorded the following information about you: Temperature Pulse Respiration Blood pressure 97.5 degrees 57/minute 16/minute 111/40 Weight Height 87.6 kg 1.664 m Paolo Casillas APRN.PHOTOSTATIC COPY MAKER 11/07/2023 12:22 PM Signed PATIENT NAME: Lashaun [...] 166.4 c (more content not included)... Normal [facility] IMMUNOFIXATION SCREEN, SERUM on 11-05-2023 INTERPRETATION [...] monoclonal gammopathy. Clinical correlation is necessary. Normal [facility] Comment on above: Order Comment: Speci men Type: BLOOD SPECIMEN Ordering Facility: [facility] Address: [address] [place] [address] [place] [address] Performed By: #### 5 7021-8 #### [facility] CLIA [id number] [address] [place] [address] MPA RESULT A poorly defined reg ion of restricted mobility is present that may represent an M protein. Abnormal No M protein is identified. [facility] Comment on above: Order Comment: Speci men Type: BLOOD SPECIMEN Ordering Facility: [facility] Address: [address] [place] [address] Performed By: #### 5 7021-8 #### [facility] CLIA [id number] [address] [place] [address] STAFF REVIEW ([facility]) Reviewed by Milka Bahena MD [facility] Comment on above: Order Comment: Speci men Type: BLOOD SPECIMEN Ordering Facility: [facility] Address: [address] [place] [address] Performed By: #### 5 7021-8 #### [facility] CLIA [id number] [address] [place] [address] IMMUNOGLOBULINS GAMon 2023 IgA [Mass/Vol] 72 mg/dL Normal 70-400 [facility] Comment on above: Order Comment: Speci men Type: BLOOD SPECIMEN Ordering Facility: [facility] Address: [address] [address] Performed By: #### 5 7021-8 #### [facility] CLIA [id number] [address] [place] [address] 16585 IgG [Mass/Vol] 525 mg/dL Low 700-1600 [facility] Comment on above: Order Comment: Speci men Type: BLOOD SPECIMEN Ordering Facility: [facility] Address: [address] [address] Performed By: #### 5 7021-8 #### [facility] CLIA [id number] [address] [place] [address] IgM [Mass/Vol] 340 mg/dL High 40-230 [facility] Comment on above: Order Comment: Speci men Type: BLOOD SPECIMEN Ordering Facility: [facility] Address: [address] [address] Performed By: #### 5 7021-8 #### [facility] CLIA [id number] [address] [place] [address] KAPPA/BOWLES,FREE,SERon 2023 Immunoglobulin light chains.kappa.free (S) [Mass/Vol] 106.4 mg/L High 3.3-19.4 [facility] Comment on above: Order Comment: Preet patino Type: BLOOD SPECIMEN Ordering Facility: [facility] Address: [address] [place] [address] Result Comment: Rare ly, increased serum free light chains levels may not be detected or accurately quantified due to prozone phenomenon or in high viscosity samples using this immunoturbidimetric assay. Correlation with other laboratory results and clinical findings is recommended. The [place] Free Light Chain was performed using the Binding Site Optilite immunoturbidimetric method. Result obtained with different assay methods or kits cannot be used interchangeably. Performed By: #### K LFRS #### [facility] CLIA [id number] [address] [place] [address] [place] Immunoglobulin light chains.kappa/Immunogl obulin light chains.lambda (S) [Mass ratio] 5.29 High 0.26-1.65 [facility] Comment on above: Order Comment: Preet patino Type: BLOOD SPECIMEN Ordering Facility: [facility] Address: [address] [place] [address] Performed By: #### K LFRS #### [facility] CLIA [id number] [address] [place] [address] [place] Immunoglobulin light chains.lambda.free [Mass/Vol] 20.1 mg/L Normal 5.7-26.3 [facility] Comment on above: Order Comment: Speci men Type: BLOOD SPECIMEN Ordering Facility: [facility] Address: [address] [place] [address] Result Comment: Rare ly, increased serum free [...] interchangeably. Performed By: #### K LFRS #### [facility] CLIA [id number] [address] [place] [address] [place] PROTEIN ELECTROPHORESIS SERU M WITH BRANDON (P)on 11-05-2023 Albumin [Mass/Vol] 3.79 g/dL Normal 3.43-5.41 [facility] Comment on above: Order Comment: Speci men Type: BLOOD SPECIMEN Ordering Facility: [facility] Address: [address] [place] [address] Performed By: #### L [id number] #### [facility] CLIA [id number] [address] [place] [address] [place] Alpha 1 globulin Elph [Mass/Vol] 0.28 g/dL Normal 0.18-0.43 [facility] Comment on above: Order Comment: Speci men Type: BLOOD SPECIMEN Ordering Facility: [facility] Address: [address] [place] [address] Performed By: #### L [id number] #### [facility] CLIA [id number] [address] [place] [address] [place] Alpha 2 globulin Elph [Mass/Vol] 0.72 g/dL Normal 0.42-0.98 [facility] Comment on above: Order Comment: Speci men Type: BLOOD SPECIMEN Ordering Facility: [facility] Address: [address] [place] [address] Performed By: #### L [id number] #### [facility] CLIA [id number] [address] [place] [address] [place] Beta globulin Elph [Mass/Vol] 0.52 g/dL Low 0.61-1.17 [facility] Comment on above: Order Comment: Speci men Type: BLOOD SPECIMEN Ordering Facility: [facility] Address: [address] [place] [address] Performed By: #### L [id number] #### [facility] CLIA [id number] [address] [place] [address] [place] COMMENT (SERUM PROT ELECTRO) A reflex test for Monoclonal Protein analysis (immunofixation) has been ordered. Normal [facility] Comment on above: Order Comment: Speci men Type: BLOOD SPECIMEN Ordering Facility: [facility] Address: [address] [place] [address] Performed By: #### L [id number] #### [facility] CLIA [id number] [facility] [place] [address] [place] Gamma globulin Elph [Mass/Vol] 0.49 g/dL Low 0.53-1.51 [facility] Comment on above: Order Comment: Speci men Type: BLOOD SPECIMEN Ordering Facility: [facility] Address: [address] [place] [address] Performed By: #### L [id number] #### [facility] CLIA [id number] [address] [place] [address] [place] INTERPRETATION COMMENT FOR PROTEIN ELECTROPHORESIS Normal [facility] Comment on above: Order Comment: Sarathi carey Type: BLOOD SPECIMEN Ordering Facility: [facility] Address: [address] [place] [address] Result Comment: The atypical region is relatively poorly defined and may represent an unusual presentation of polyclonal immunoglobulins, but cannot rule out the presence of a low level M protein. If clinically indicated, monoclonal protein analysis and serum free light chain analysis are suggested to evaluate further for monoclonal gammopathy. Performed By: #### L [id number] #### [facility] CLIA [id number] [address] [place] [address] [place] M-PROTEIN LOCATION Normal [facility] Comment on above: Order Comment: Speci men Type: BLOOD SPECIMEN Ordering Facility: [facility] Address: [address] [place] [address] Result Comment: Not Applicable. Performed By: #### L [id number] #### [facility] CLIA [id number] [address] [place] Protein Fractions [Interp] An atypical region of restricted mobility is identified on protein electrophoresis. Abnormal No definitive M protein is identified on protein electrophor esis. [facility] Comment on above: Order Comment: Speci men Type: BLOOD SPECIMEN Ordering Facility: [facility] Address: [address] [place] [address] Performed By: #### L [id number] #### [facility] CLIA [id number] [facility] [place] [address] [place] Protein.monoclonal Elph [Mass/Vol] 0.00 g/dL Normal <=0.00 [facility] Comment on above: Order Comment: Speci men Type: BLOOD SPECIMEN Ordering Facility: [facility] Address: [address] [place] [address] Performed By: #### L [id number] #### [facility] CLIA [id number] [address] [place] [address] [place] SPE STAFF REVIEW Reviewed by Milka Bahena MD [facility] Comment on above: Order Comment: Speci men Type: BLOOD SPECIMEN Ordering Facility: [facility] Address: [address] [place] [address] Performed By: #### L [id number] #### [facility] CLIA [id number] [address] [place] [address] [place] Prot SerPl-mCncon 11-05-2023 Protein [Mass/Vol] 5.8 g/dL Low 6.3-8.0 [facility] Comment on above: Order Comment: Speci men Type: BLOOD SPECIMEN Ordering Facility: [facility] Address: [address] [place] [address] Performed By: #### 5 7021-8 #### [facility] CLIA [id number] [address] [place] [address] Kyung 08-31-2023 DANIELAN Telephone (HEMTSA) ----- LASHAUN JOAQUIN ([id number]) 1940 F Date Time Provider Department 08/31/23 [...] [R77.8] Order(s):CBC + DIFF [SQCBCDIF] Order #: [id number] FUTURE BASIC METABOLIC PNL [SQBMP] Order #: [id number] FUTURE PROT ELECT SERUM WITH BRANDON AND INTERP [SQSEPGRX] Order #: [id number] FUTURE MONOCLONAL PROTEIN, SERUM (BLOOD) [SQSERMPA] Order #: [id number] FUTURE Prescriptions as of 08/31/2023 - carvedilol [...] Encounter Status:Closed by LUIS MCKENZIE on 08/31/23 [facility] UA RANDOM W/MICROSCOPICon Clarity (U) CLEAR CLEAR [employer] Other Color (U) DK YELLOW YELLOW [employer] Other Ketones Ql (U) Negative NEGATIVE mg/dL [employer] Other Leukocyte esterase Test strip Ql (U) Negative NEGATIVE [employer] Other pH (U) 6.5 [pH] 5.0-9.0 [employer] Other UA RANDOM W/MICROSCOPIC 0-2 #/HPF Abnormal NONE SEEN #/HPF [employer] Other UA RANDOM W/MICROSCOPIC 5-10 #/HPF Abnormal 0-2 #/HPF [employer] Other UA RANDOM W/MICROSCOPIC see note [employer] Other UA RANDOM W/MICROSCOPIC 1.010 1.005-1.025 [employer] Other UA RANDOM W/MICROSCOPIC Negative NEGATIVE [employer] Other UA RANDOM W/MICROSCOPIC LARGE Abnormal NEGATIVE [employer] Other UA RANDOM W/MICROSCOPIC Positive Abnormal NEGATIVE [employer] Other UA RANDOM W/MICROSCOPIC 1.0 EU/dL 0.2-1.0 EU/dL [employer] Other UA RANDOM W/MICROSCOPIC TRACE #/HPF Abnormal NONE SEEN #/HPF [employer] Other UA RANDOM W/MICROSCOPIC NONE SEEN NONE SEEN [employer] Other UA RANDOM W/MICROSCOPIC RARE #/LPF NONE/RARE #/LPF [employer] Other UA RANDOM W/MICROSCOPIC None Seen #/HPF None Seen #/HPF [employer] Other UA RANDOM W/MICROSCOPIC NONE SEEN #/LPF NONE SEEN #/LPF [employer] Other Urinalysis - DIPSTICKon - Appearance (U) clear [employer] Other Bilirubin Ql (U) Negative [employer] Other Color (U) light yellow [employer] Other Glucose Ql (U) Negative [employer] Other Hemoglobin Ql (U) +++ [employer] Other Ketones Ql (U) Negative [employer] Other Leukocyte esterase Test strip Ql (U) Negative [employer] Other Nitrite Ql (U) Negative [employer] Other pH (U) 0.2 [pH] [employer] Other Protein Ql (U) trace [employer] Other Specific gravity (U) [Rel density] 1.005 [employer] Other Urobilinogen (U) [Mass/Vol] off chart [facility] [email or web address] Other Urinalysis - DIPSTICK Nor [facility] [email or web address] Other CNPNon 06-06-2023 CNPN Telephone (HEMTSA) ----- LASHAUN JOAQUIN ([id number]) 1940 F Date Time Provider Department 06/06/23 [...] Status:Closed by JUAN MANZANARES on 06/06/23 Normal [facility] ESR Westergren method (Bld) [Velocity]on 06-05-2023 ESR (Bld) [Velocity] 119 mm/h High 0 - 20 mm/hr [facility] FERRITIN BLDon 06-05-2023 Ferritin [Mass/Vol] 160.0 ng/mL 14.7 - 205.1 ng/mL [facility] Iron and Iron binding capaci ty panelon 06-05-2023 Iron [Mass/Vol] 45 ug/dL 41 - 186 ug/dL [facility] Iron binding capacity [Mass/Vol] 252 ug/dL 232 - 386 ug/dL [facility] Iron/TIBC [Molar ratio] 17.9 % 15.0 - 57.0 % [facility] Basic metabolic 2000 panelon 06-04-2023 Anion gap [Moles/Vol] 10 mmol/L Normal 9-18 [facility] Comment on above: Order Comment: Speci men Type: BLOOD SPECIMEN Ordering Facility: [facility] Address: [address] [place] [address] Performed By: #### K LFRS #### [facility] CLIA [id number] [address] [place] [address] [place] Calcium [Mass/Vol] 9.2 mg/dL Normal 8.5-10.2 [facility] Comment on above: Order Comment: Speci men Type: BLOOD SPECIMEN Ordering Facility: [facility] Address: [address] [place] [address] Performed By: #### K LFRS #### [facility] CLIA [id number] [address] [place] [address] [place] Chloride [Moles/Vol] 106 mmol/L High 97-105 [facility] Comment on above: Order Comment: Speci men Type: BLOOD SPECIMEN Ordering Facility: [facility] Address: [address] [place] [address] Performed By: #### K LFRS #### [facility] CLIA [id number] [address] [place] [address] [place] CO2 [Moles/Vol] 27 mmol/L Normal 22-30 [facility] Comment on above: Order Comment: Speci men Type: BLOOD SPECIMEN Ordering Facility: [facility] Address: [address] [place] [address] Performed By: #### K LFRS #### [facility] CLIA [id number] [address] [place] [id number] [place] Creatinine [Mass/Vol] 1.09 mg/dL High 0.58-0.96 [facility] Comment on above: Order Comment: Preet patino Type: BLOOD SPECIMEN Ordering Facility: [facility] Address: [address] [place] [address] Performed By: #### K LFRS #### [facility] CLIA [id number] [address] [place] [address] [place] ESTIMATED GLOMERULAR FILTRATION RATE 51 mL/min/1.73m??? Low >=60 [facility] Comment on above: Order Comment: Preet patino Type: BLOOD SPECIMEN Ordering Facility: [facility] Address: [address] [place] [address] Result Comment: Shoshana mated Glomerular Filtration Rate [...] GFR. Performed By: #### K LFRS #### [facility] CLIA [id number] [address] [place] [address] [place] Glucose [Mass/Vol] 116 mg/dL High 74-99 [facility] Comment on above: Order Comment: Preet patino Type: BLOOD SPECIMEN Ordering Facility: [facility] Address: [address] [place] [address] Result Comment: The [place] [employer] (ADA) provides guidance for cutoff [...] Standards of Medical Care in Diabetes 2016, [place] [employer]. Diabetes Care. 2016.39(Suppl 1). Performed By: #### K LFRS #### [facility] CLIA [id number] [address] [place] [address] [place] Potassium [Moles/Vol] 4.3 mmol/L Normal 3.7-5.1 [facility] Comment on above: Order Comment: Speci men Type: BLOOD SPECIMEN Ordering Facility: [facility] Address: [address] [place] [address] Performed By: #### K LFRS #### [facility] CLIA [id number] [address] [place] [address] [place] Sodium [Moles/Vol] 143 mmol/L Normal 136-144 [facility] Comment on above: Order Comment: Speci men Type: BLOOD SPECIMEN Ordering Facility: [facility] Address: [address] [place] [address] Performed By: #### K LFRS #### [facility] CLIA [id number] [address] [place] [address] [place] Urea nitrogen [Mass/Vol] 19 mg/dL Normal 7-21 [facility] Comment on above: Order Comment: Speci men Type: BLOOD SPECIMEN Ordering Facility: [facility] Address: [address] [place] [address] Performed By: #### K LFRS #### [facility] CLIA [id number] [address] [place] [address] [place] Anion gap [Moles/Vol] 10 mmol/L 9 - 18 mmol/L [facility] Calcium [Mass/Vol] 9.2 mg/dL 8.5 - 10. 2 mg/dL [facility] Chloride [Moles/Vol] 106 mmol/L High 97 - 10 5 mmol/L [facility] CO2 [Moles/Vol] 27 mmol/L 22 - 30 mmol/L [facility] Creatinine [Mass/Vol] 1.09 mg/dL High 0.58 - 0.96 mg/dL [facility] Estimated Glomerular Filtration Rate 51 mL/min/1.73m Low >=60 mL/min/1.73 m [facility] Glucose [Mass/Vol] 116 mg/dL High 74 - 99 mg/dL [facility] Potassium [Moles/Vol] 4.3 mmol/L 3.7 - 5.1 mmol/L [facility] Sodium [Moles/Vol] 143 mmol/L 136 - 144 mmol/L [facility] Urea nitrogen [Mass/Vol] 19 mg/dL 7 - 21 mg/dL [facility] CBC W Auto Differential pane l (Bld)on 06-04-2023 Basophils (Bld) [#/Vol] 0.04 10*3/uL Normal <0.11 [facility] Comment on above: Order Comment: Speci men Type: BLOOD SPECIMEN Ordering Facility: [facility] Address: [address] [place] [address] Performed By: #### 5 7021-8 #### [facility] CLIA [id number] [address] [place] [address] 26529 Basophils/100 WBC (Bld) 0.8 % Normal [facility] Comment on above: Order Comment: Speci men Type: BLOOD SPECIMEN Ordering Facility: [facility] Address: [address] [place] [address] Performed By: #### 5 7021-8 #### [facility] CLIA [id number] [address] [place] [address] 14572 Differential cell count method Nom (Bld) Auto Normal [facility] Comment on above: Order Comment: Speci men Type: BLOOD SPECIMEN Ordering Facility: [facility] Address: [address] [place] [address] Performed By: #### 5 7021-8 #### [facility] CLIA [id number] [address] [place] [address]3262 Eosinophils (Bld) [#/Vol] 0.14 10*3/uL Normal <0.46 [facility] Comment on above: Order Comment: Speci men Type: BLOOD SPECIMEN Ordering Facility: [facility] Address: [address] [place] [address] Performed By: #### 5 7021-8 #### [facility] CLIA [id number] [address] [place] [address]342 Eosinophils/100 WBC (Bld) 2.9 % Normal [facility] Comment on above: Order Comment: Speci men Type: BLOOD SPECIMEN Ordering Facility: [facility] Address: [address] [place] [address] Performed By: #### 5 7021-8 #### [facility] CLIA [id number] [address] [place] [address]70 Erythrocyte distribution width (RBC) [Ratio] 13.6 % Normal 11.5-15.0 [facility] Comment on above: Order Comment: Speci men Type: BLOOD SPECIMEN Ordering Facility: [facility] Address: [address] [place] [address] Performed By: #### 5 7021-8 #### [facility] CLIA [id number] [address] [place] [address]484 Hematocrit (Bld) [Volume fraction] 28.8 % Low 36.0-46.0 [facility] Comment on above: Order Comment: Speci men Type: BLOOD SPECIMEN Ordering Facility: [facility] Address: [address] [place] [address] Performed By: #### 5 7021-8 #### [facility] CLIA [id number] [address] [place] [address]37 Hemoglobin (Bld) [Mass/Vol] 9.2 g/dL Low 11.5-15.5 [facility] Comment on above: Order Comment: Speci men Type: BLOOD SPECIMEN Ordering Facility: [facility] Address: [address] [place] [address] Performed By: #### 5 7021-8 #### [facility] CLIA [id number] [address] [place] [address]6837 Immature granulocytes (Bld) [#/Vol] 10*3/uL Normal <0.10 [facility] Comment on above: Order Comment: Speci men Type: BLOOD SPECIMEN Ordering Facility: [facility] Address: [facility] [place] [address] Performed By: #### 5 7021-8 #### [facility] CLIA [id number] [address] [place] [address]56 Immature granulocytes/100 WBC (Bld) 0.4 % Normal [facility] Comment on above: Order Comment: Speci men Type: BLOOD SPECIMEN Ordering Facility: [facility] Address: [address] [place] [address] Performed By: #### 5 7021-8 #### [facility] CLIA [id number] [address] [place] [address] 81885 Lymphocytes (Bld) [#/Vol] 0.83 10*3/uL Low 1.00-4.00 [facility] Comment on above: Order Comment: Speci men Type: BLOOD SPECIMEN Ordering Facility: [facility] Address: [address] [place] [address] Performed By: #### 5 7021-8 #### [facility] CLIA [id number] [address] [place] [address] 22352 Lymphocytes/100 WBC (Bld) 17.4 % Normal [facility] Comment on above: Order Comment: Speci men Type: BLOOD SPECIMEN Ordering Facility: [facility] Address: [address] [place] [address] Performed By: #### 5 7021-8 #### [facility] CLIA [id number] [address] [place] [address] 72336 MCH (RBC) [Entitic mass] 29.6 pg Normal 26.0-34.0 [facility] Comment on above: Order Comment: Speci men Type: BLOOD SPECIMEN Ordering Facility: [facility] Address: [address] [place] [address] Performed By: #### 5 7021-8 #### [facility] CLIA [id number] [address] [place] [address]114 MCHC (RBC) [Mass/Vol] 31.9 g/dL Normal 30.5-36.0 [facility] Comment on above: Order Comment: Speci men Type: BLOOD SPECIMEN Ordering Facility: [facility] Address: [address] [place] [address] Performed By: #### 5 7021-8 #### [facility] CLIA [id number] [address] [place] [address] 23298 MCV (RBC) [Entitic vol] 92.6 fL Normal 80.0-100.0 [facility] Comment on above: Order Comment: Speci men Type: BLOOD SPECIMEN Ordering Facility: [facility] Address: [address] [place] [address] Performed By: #### 5 7021-8 #### [facility] CLIA [id number] [address] [place] [address] 54765 Monocytes (Bld) [#/Vol] 0.40 10*3/uL Normal <0.87 [facility] Comment on above: Order Comment: Speci men Type: BLOOD SPECIMEN Ordering Facility: [facility] Address: [address] [place] [address] Performed By: #### 5 7021-8 #### [facility] CLIA [id number] [address] [place] [address] 59597 Monocytes/100 WBC (Bld) 8.4 % Normal [facility] Comment on above: Order Comment: Speci men Type: BLOOD SPECIMEN Ordering Facility: [facility] Address: [address] [place] [address] Performed By: #### 5 7021-8 #### [facility] CLIA [id number] [address] [place] [address] 49742 Neutrophils (Bld) [#/Vol] 3.35 10*3/uL Normal 1.45-7.50 [facility] Comment on above: Order Comment: Speci men Type: BLOOD SPECIMEN Ordering Facility: [facility] Address: [address] [place] [address] Performed By: #### 5 7021-8 #### [facility] CLIA [id number] [address] [place] [address] 31987 Neutrophils/100 WBC (Bld) 70.1 % Normal [facility] Comment on above: Order Comment: Speci men Type: BLOOD SPECIMEN Ordering Facility: [facility] Address: [address] [place] [address] Performed By: #### 5 7021-8 #### [facility] CLIA [id number] [address] [place] [address] 93218 Nucleated RBC (Bld) [#/Vol] 10*3/uL Normal <0.01 [facility] Comment on above: Order Comment: Speci men Type: BLOOD SPECIMEN Ordering Facility: [facility] Address: [address] [place] [address] Performed By: #### 5 7021-8 #### [facility] CLIA [id number] [address] [place] [address] 80808 Nucleated RBC/100 WBC (Bld) [Ratio] 0.0 /100 WBC Normal [facility] Comment on above: Order Comment: Speci men Type: BLOOD SPECIMEN Ordering Facility: [facility] Address: [address] [place] [address] Performed By: #### 5 7021-8 #### [facility] CLIA [id number] [address] [place] [address] 89405 Platelet mean volume (Bld) [Entitic vol] 10.2 fL Normal 9.0-12.7 [facility] Comment on above: Order Comment: Speci men Type: BLOOD SPECIMEN Ordering Facility: [facility] Address: [address] [place] [address] Performed By: #### 5 7021-8 #### [facility] CLIA [id number] [address] [place] [address] 33438 Platelets (Bld) [#/Vol] 274 10*3/uL Normal 150-400 [facility] Comment on above: Order Comment: Speci men Type: BLOOD SPECIMEN Ordering Facility: [facility] Address: [address] [place] [address] Performed By: #### 5 7021-8 #### [facility] CLIA [id number] [address] [place] [address] 68577 RBC (Bld) [#/Vol] 3.11 10*6/uL Low 3.90-5.20 [facility] Comment on above: Order Comment: Speci men Type: BLOOD SPECIMEN Ordering Facility: [facility] Address: [address] [place] [address] Performed By: #### 5 7021-8 #### [facility] CLIA [id number] [address] [place] [address] 63888 WBC (Bld) [#/Vol] 4.78 10*3/uL Normal 3.70-11.00 [facility] Comment on above: Order Comment: Speci men Type: BLOOD SPECIMEN Ordering Facility: [facility] Address: [address] [place] [address] Performed By: #### 5 7021-8 #### [facility] CLIA [id number] [address] [place] [address] 53277 Basophils (Bld) [#/Vol] 0.04 10*3/uL <0.11 k/uL [facility] Basophils/100 WBC (Bld) 0.8 % [facility] Differential cell count method Nom (Bld) Auto [facility] Eosinophils (Bld) [#/Vol] 0.14 10*3/uL <0.46 k/uL [facility] Eosinophils/100 WBC (Bld) 2.9 % [facility] Erythrocyte distribution width (RBC) [Ratio] 13.6 % 11.5 - 15.0 % [facility] Hematocrit (Bld) [Volume fraction] 28.8 % Low 36.0 - 46.0 % [facility] Hemoglobin (Bld) [Mass/Vol] 9.2 g/dL Low 11.5 - 15.5 g/dL [facility] [facility] Immature granulocytes (Bld) [#/Vol] <0.10 k/uL [facility] Immature granulocytes/100 WBC (Bld) 0.4 % [facility] Lymphocytes (Bld) [#/Vol] 0.83 10*3/uL Low 1.00 - 4.00 k/uL [facility] Lymphocytes/100 WBC (Bld) 17.4 % [facility] MCH (RBC) [Entitic mass] 29.6 pg 26.0 - 34.0 pg [facility] MCHC (RBC) [Mass/Vol] 31.9 g/dL 30.5 - 36.0 g/dL [facility] MCV (RBC) [Entitic vol] 92.6 fL 80.0 - 100.0 fL [facility] Monocytes (Bld) [#/Vol] 0.40 10*3/uL <0.87 k/uL [facility] Monocytes/100 WBC (Bld) 8.4 % [facility] Neutrophils (Bld) [#/Vol] 3.35 10*3/uL 1.45 - 7.50 k/uL [facility] Neutrophils/100 WBC (Bld) 70.1 % [facility] Nucleated RBC (Bld) [#/Vol] <0.01 k/uL [facility] Nucleated RBC/100 WBC (Bld) [Ratio] 0.0 /100 WBC [facility] Platelet mean volume (Bld) [Entitic vol] 10.2 fL 9.0 - 12.7 fL [facility] Platelets (Bld) [#/Vol] 274 10*3/uL 150 - 400 k/uL [facility] RBC (Bld) [#/Vol] 3.11 10*6/uL Low 3.90 - 5.2 0 m/uL [facility] WBC (Bld) [#/Vol] 4.78 10*3/uL 3.70 - 11.00 k/uL [facility] CNOVSPon 06-04-2023 CNOVSP Visit (SP) Office ([place]) ----- LASHAUN JOAQUIN ([id number]) 1940 F Date Time Provider Department 06/04/23 [...] shortness of breath and was hospitalized at [facility] and treated for suspected pneumonia. Apparently it was later felt she had heart disease, and cardiac catheterization revealed severe coronary artery disease. She subsequently underwent stent placement at [facility]. Apparently her shortness of breath persisted, and [...] EXAM: B (more content not included)... Normal [facility] ESR Westergren method (Bld) [Velocity]on 06-04-2023 ESR (Bld) [Velocity] 119 mm/h High 0-20 [facility] Comment on above: Order Comment: Speci men Type: BLOOD SPECIMEN Ordering Facility: [facility] Address: [address] [place] [address] Performed By: #### 2 4323-8 #### [facility] CLIA [id number] [address] [place] [address] 20365 Ferritin SerPl-mCncon 2022 Ferritin [Mass/Vol] 160.0 ng/mL Normal 14.7-205.1 [facility] Comment on above: Order Comment: Speci men Type: BLOOD SPECIMEN Ordering Facility: [facility] Address: [address] [place] [address] Performed By: #### 5 7021-8 #### [facility] CLIA [id number] [address] [place] [address] 33310 Iron and Iron binding capaci ty panelon 06-04-2023 Iron [Mass/Vol] 45 ug/dL Normal 41-186 [facility] Comment on above: Order Comment: Speci men Type: BLOOD SPECIMEN Ordering Facility: [facility] Address: [address] [place] [address] Performed By: #### 2 4323-8 #### [facility] CLIA [id number] [address] [place] [address] 45166 Iron binding capacity [Mass/Vol] 252 ug/dL Normal 232-386 [facility] Comment on above: Order Comment: Speci men Type: BLOOD SPECIMEN Ordering Facility: [facility] Address: [address] [place] [address] Performed By: #### 2 4323-8 #### [facility] CLIA [id number] [address] [place] [address] 68134 Iron/TIBC [Molar ratio] 17.9 % Normal 15.0-57.0 [facility] Comment on above: Order Comment: Speci men Type: BLOOD SPECIMEN Ordering Facility: [facility] Address: [address] [place] [address] Performed By: #### 2 4323-8 #### [facility] CLIA [id number] [address] [place] [address] 45561 RETIC COUNTon 06-04-2023 Reticulocytes (Bld) [#/Vol] 0.45135 10*3/uL 0.018 - 0.100 M/uL [facility] Retics #on 06-04-2023 Reticulocytes (Bld) [#/Vol] 0.29802 10*3/uL Normal 0.018-0.100 [facility] Comment on above: Order Comment: Speci men Type: BLOOD SPECIMEN Ordering Facility: [facility] Address: [address] [address] Performed By: #### 5 7021-8 #### [facility] CLIA [id number] [address] [place] [address] 10212 Reticulocytes (Bld) [#/Vol]o n 06-04-2023 Reticulocytes/100 RBC (Bld) 2.0 % Normal 0.4-2.0 [facility] Comment on above: Order Comment: Speci men Type: BLOOD SPECIMEN Ordering Facility: [facility] Address: [address] [place] [address] Performed By: #### 5 7021-8 #### [facility] CLIA [id number] [address] [place] [address] 50919 Reticulocytes/100 RBC (Bld) 2.0 % 0.4 - 2.0 % [facility] Basic metabolic 2000 panelon 05-28-2023 Anion gap [Moles/Vol] 8 mmol/L Low 9-18 [facility] Comment on above: Order Comment: Speci men Type: BLOOD SPECIMEN Ordering Facility: [facility] Address: [address] [place] [address] Performed By: #### 2 4323-8 #### [facility] CLIA [id number] [address] [place] [address] 51838 Calcium [Mass/Vol] 9.2 mg/dL Normal 8.5-10.2 [facility] Comment on above: Order Comment: Speci men Type: BLOOD SPECIMEN Ordering Facility: [facility] Address: [address] [address] Performed By: #### 2 4323-8 #### [facility] CLIA [id number] [address] [place] [address] 93027 Chloride [Moles/Vol] 104 mmol/L Normal 97-105 [facility] Comment on above: Order Comment: Speci men Type: BLOOD SPECIMEN Ordering Facility: [facility] Address: [address] [address] Performed By: #### 2 4323-8 #### [facility] CLIA [id number] [address] [place] [address] 14733 CO2 [Moles/Vol] 28 mmol/L Normal 22-30 [facility] Comment on above: Order Comment: Speci men Type: BLOOD SPECIMEN Ordering Facility: [facility] Address: [address] [address] Performed By: #### 2 4323-8 #### [facility] CLIA [id number] [address] [place] [address] 11262 Creatinine [Mass/Vol] 1.18 mg/dL High 0.58-0.96 [facility] Comment on above: Order Comment: Speci men Type: BLOOD SPECIMEN Ordering Facility: [facility] Address: [address] [place] [address] Performed By: #### 2 4323-8 #### [facility] CLIA [id number] [address] [place] [address] 63790 ESTIMATED GLOMERULAR FILTRATION RATE 47 mL/min/1.73m??? Low >=60 [facility] Comment on above: Order Comment: Speci men Type: BLOOD SPECIMEN Ordering Facility: [facility] Address: [address] [place] [address] Result Comment: Shoshana mated Glomerular Filtration Rate [...] GFR. Performed By: #### 2 4323-8 #### [facility] CLIA [id number] [address] [place] [address] Glucose [Mass/Vol] 127 mg/dL High 74-99 [facility] Comment on above: Order Comment: Speci men Type: BLOOD SPECIMEN Ordering Facility: [facility] Address: [address] [place], [place] [address] Result Comment: The [place] [employer] (ADA) provides guidance for cutoff [...] Standards of Medical Care in Diabetes 2016, [place] [employer]. Diabetes Care. 2016.39(Suppl 1). Performed By: #### 2 4323-8 #### [facility] CLIA [id number] [address] [place] [address] 76291 Potassium [Moles/Vol] 4.4 mmol/L Normal 3.7-5.1 [facility] Comment on above: Order Comment: Speci men Type: BLOOD SPECIMEN Ordering Facility: [facility] Address: [address] [place] [address] Performed By: #### 2 4323-8 #### [facility] CLIA [id number] [address] [place] [address] Sodium [Moles/Vol] 140 mmol/L Normal 136-144 [facility] Comment on above: Order Comment: Speci men Type: BLOOD SPECIMEN Ordering Facility: [facility] Address: [address] [address] Performed By: #### 2 4323-8 #### [facility] CLIA [id number] [address] [place] [address] 24019 Urea nitrogen [Mass/Vol] 23 mg/dL High 7-21 [facility] Comment on above: Order Comment: Speci men Type: BLOOD SPECIMEN Ordering Facility: [facility] Address: [address] [place] [address] Performed By: #### 2 4323-8 #### [facility] CLIA [id number] [address] [place], [place] [address] CBC W Auto Differential pane l (Bld)on 05-28-2023 Basophils (Bld) [#/Vol] 0.03 10*3/uL Normal <0.11 [facility] Comment on above: Order Comment: Speci men Type: BLOOD SPECIMEN Ordering Facility: [facility] Address: [address] [address] Performed By: #### 5 7021-8 #### [facility] CLIA [id number] [address] [place], [place] [address] Basophils/100 WBC (Bld) 0.6 % Normal [facility] Comment on above: Order Comment: Speci men Type: BLOOD SPECIMEN Ordering Facility: [facility] Address: [address] [place] [address] Performed By: #### 5 7021-8 #### [facility] CLIA [id number] [address] [place] [address] 16518 Differential cell count method Nom (Bld) Auto Normal [facility] Comment on above: Order Comment: Speci men Type: BLOOD SPECIMEN Ordering Facility: [facility] Address: [address] [place] [address] Performed By: #### 5 7021-8 #### [facility] CLIA [id number] [address] [place] [address] 34480 Eosinophils (Bld) [#/Vol] 0.13 10*3/uL Normal <0.46 [facility] Comment on above: Order Comment: Speci men Type: BLOOD SPECIMEN Ordering Facility: [facility] Address: [address] [address] Performed By: #### 5 7021-8 #### [facility] CLIA [id number] [address] [place] [address] 77982 Eosinophils/100 WBC (Bld) 2.5 % Normal [facility] Comment on above: Order Comment: Speci men Type: BLOOD SPECIMEN Ordering Facility: [facility] Address: [address] [address] Performed By: #### 5 7021-8 #### [facility] CLIA [id number] [address] [place] [address] 41845 Erythrocyte distribution width (RBC) [Ratio] 13.7 % Normal 11.5-15.0 [facility] Comment on above: Order Comment: Speci men Type: BLOOD SPECIMEN Ordering Facility: [facility] Address: [address] [address] Performed By: #### 5 7021-8 #### [facility] CLIA [id number] [address] [place] [address] 65193 Hematocrit (Bld) [Volume fraction] 27.9 % Low 36.0-46.0 [facility] Comment on above: Order Comment: Speci men Type: BLOOD SPECIMEN Ordering Facility: [facility] Address: [address] [address] Performed By: #### 5 7021-8 #### [facility] CLIA [id number] [address] [place] [address] 77894 Hemoglobin (Bld) [Mass/Vol] 8.8 g/dL Low 11.5-15.5 [facility] Comment on above: Order Comment: Speci men Type: BLOOD SPECIMEN Ordering Facility: [facility] Address: [address] [address] Performed By: #### 5 7021-8 #### [facility] CLIA [id number] [address] [place] [address] 78669 Immature granulocytes (Bld) [#/Vol] 10*3/uL Normal <0.10 [facility] Comment on above: Order Comment: Speci men Type: BLOOD SPECIMEN Ordering Facility: [facility] Address: [address] [address] Performed By: #### 5 7021-8 #### [facility] CLIA [id number] [address] [place] [address] 53404 Immature granulocytes/100 WBC (Bld) 0.4 % Normal [facility] Comment on above: Order Comment: Speci men Type: BLOOD SPECIMEN Ordering Facility: [facility] Address: [address] [place] [address] Performed By: #### 5 7021-8 #### [facility] CLIA [id number] [address] [place] [address] 73488 Lymphocytes (Bld) [#/Vol] 0.88 10*3/uL Low 1.00-4.00 [facility] Comment on above: Order Comment: Speci men Type: BLOOD SPECIMEN Ordering Facility: [facility] Address: [address] [place] [address] Performed By: #### 5 7021-8 #### [facility] CLIA [id number] [address] [place] [address] 80024 Lymphocytes/100 WBC (Bld) 16.8 % Normal [facility] Comment on above: Order Comment: Speci men Type: BLOOD SPECIMEN Ordering Facility: [facility] Address: [address] [place] [address] Performed By: #### 5 7021-8 #### [facility] CLIA [id number] [address] [place] [address] 23197 MCH (RBC) [Entitic mass] 29.1 pg Normal 26.0-34.0 [facility] Comment on above: Order Comment: Speci men Type: BLOOD SPECIMEN Ordering Facility: [facility] Address: [address] [address] Performed By: #### 5 7021-8 #### [facility] CLIA [id number] [address] [place] [address] 29933 MCHC (RBC) [Mass/Vol] 31.5 g/dL Normal 30.5-36.0 [facility] Comment on above: Order Comment: Speci men Type: BLOOD SPECIMEN Ordering Facility: [facility] Address: [address] [address] Performed By: #### 5 7021-8 #### [facility] CLIA [id number] [address] [place] [address] 00707 MCV (RBC) [Entitic vol] 92.4 fL Normal 80.0-100.0 [facility] Comment on above: Order Comment: Speci men Type: BLOOD SPECIMEN Ordering Facility: [facility] Address: [address] [address] Performed By: #### 5 7021-8 #### [facility] CLIA [id number] [address] [place] [address] 62158 Monocytes (Bld) [#/Vol] 0.43 10*3/uL Normal <0.87 [facility] Comment on above: Order Comment: Speci men Type: BLOOD SPECIMEN Ordering Facility: [facility] Address: [address] [address] Performed By: #### 5 7021-8 #### [facility] CLIA [id number] [address] [place] [address] 64724 Monocytes/100 WBC (Bld) 8.2 % Normal [facility] Comment on above: Order Comment: Speci men Type: BLOOD SPECIMEN Ordering Facility: [facility] Address: [address] [address] Performed By: #### 5 7021-8 #### [facility] CLIA [id number] [address] [place] [address] 30320 Neutrophils (Bld) [#/Vol] 3.76 10*3/uL Normal 1.45-7.50 [facility] Comment on above: Order Comment: Speci men Type: BLOOD SPECIMEN Ordering Facility: [facility] Address: [address] [address] Performed By: #### 5 7021-8 #### [facility] CLIA [id number] [address] [place] [address] 16158 Neutrophils/100 WBC (Bld) 71.5 % Normal [facility] Comment on above: Order Comment: Speci men Type: BLOOD SPECIMEN Ordering Facility: [facility] Address: [address] [address] Performed By: #### 5 7021-8 #### [facility] CLIA [id number] [address] [place] [address] 94791 Nucleated RBC (Bld) [#/Vol] 10*3/uL Normal <0.01 [facility] Comment on above: Order Comment: Speci men Type: BLOOD SPECIMEN Ordering Facility: [facility] Address: [address] [address] Performed By: #### 5 7021-8 #### [facility] CLIA [id number] [address] [place] [address] 44453 Nucleated RBC/100 WBC (Bld) [Ratio] 0.0 /100 WBC Normal [facility] Comment on above: Order Comment: Speci men Type: BLOOD SPECIMEN Ordering Facility: [facility] Address: [address] [address] Performed By: #### 5 7021-8 #### [facility] CLIA [id number] [address] [place] [address] 07759 Platelet mean volume (Bld) [Entitic vol] 10.2 fL Normal 9.0-12.7 [facility] Comment on above: Order Comment: Speci men Type: BLOOD SPECIMEN Ordering Facility: [facility] Address: [address] [address] Performed By: #### 5 7021-8 #### [facility] CLIA [id number] [address] [place] [address] 99962 Platelets (Bld) [#/Vol] 238 10*3/uL Normal 150-400 [facility] Comment on above: Order Comment: Speci men Type: BLOOD SPECIMEN Ordering Facility: [facility] Address: [address] [place] [address] Performed By: #### 5 7021-8 #### [facility] CLIA [id number] [address] [place] [address] 24696 RBC (Bld) [#/Vol] 3.02 10*6/uL Low 3.90-5.20 [facility] Comment on above: Order Comment: Speci men Type: BLOOD SPECIMEN Ordering Facility: [facility] Address: [address] [place] [address] Performed By: #### 5 7021-8 #### [facility] CLIA [id number] [address] [place], [place] [address] WBC (Bld) [#/Vol] 5.25 10*3/uL Normal 3.70-11.00 [facility] Comment on above: Order Comment: Speci men Type: BLOOD SPECIMEN Ordering Facility: [facility] Address: [address] [place] [address] Performed By: #### 5 7021-8 #### [facility] CLIA [id number] [address] [place] [address] 39073 IMMUNOFIXATION SCREEN, SERUM on 05-28-2023 MPA RESULT No M protein is identified. Normal No M protein is identified. [facility] Comment on above: Order Comment: Speci men Type: BLOOD SPECIMEN Ordering Facility: [facility] Address: [address] [place] [address] Performed By: #### 5 7021-8 #### [facility] CLIA [id number] [address] [place] [address] 93882 STAFF REVIEW (MPA) Reviewed by Milka Bahena MD [facility] Comment on above: Order Comment: Speci men Type: BLOOD SPECIMEN Ordering Facility: [facility] Address: [address] [place] [address] Performed By: #### 5 7021-8 #### [facility] CLIA [id number] [address] [place] [address] IMMUNOGLOBULINS GAMon 2022 IgA [Mass/Vol] 77 mg/dL Normal 70-400 [facility] Comment on above: Order Comment: Speci men Type: BLOOD SPECIMEN Ordering Facility: [facility] Address: [address] [place] [address] Performed By: #### K LFRS #### [facility] CLIA [id number] [address] [place] [address] [place] IgG [Mass/Vol] 682 mg/dL Low 700-1600 [facility] Comment on above: Order Comment: Speci men Type: BLOOD SPECIMEN Ordering Facility: [facility] Address: [address] [place] [address] Performed By: #### K LFRS #### [facility] CLIA [id number] [address] [place] [address] [place] IgM [Mass/Vol] 285 mg/dL High 40-230 [facility] Comment on above: Order Comment: Speci men Type: BLOOD SPECIMEN Ordering Facility: [facility] Address: [address] [place] [address] Performed By: #### K LFRS #### [facility] CLIA [id number] [facility] [place] [address] [place] KAPPA/BOWLES,FREE,SERon 2022 Immunoglobulin light chains.kappa.free (S) [Mass/Vol] 111.0 mg/L High 3.3-19.4 [facility] Comment on above: Order Comment: Speci men Type: BLOOD SPECIMEN Ordering Facility: [facility] Address: [address] [place] [address] Result Comment: Rare ly, increased serum free light chains levels may not be detected or accurately quantified due to prozone phenomenon or in high viscosity samples using this immunoturbidimetric assay. Correlation with other laboratory results and clinical findings is recommended. The Moody Free Light Chain was performed using the Binding Site Optilite immunoturbidimetric method. Result obtained with different assay methods or kits cannot be used interchangeably. Performed By: #### 2 4323-8 #### [facility] CLIA [id number] [address] [place] [address] 81147 Immunoglobulin light chains.kappa/Immunogl obulin light chains.lambda (S) [Mass ratio] 4.48 High 0.26-1.65 [facility] Comment on above: Order Comment: Speci men Type: BLOOD SPECIMEN Ordering Facility: [facility] Address: [address] [place] [address] Performed By: #### 2 4323-8 #### [facility] CLIA [id number] [address] [place] [address] 46869 Immunoglobulin light chains.lambda.free [Mass/Vol] 24.8 mg/L Normal 5.7-26.3 [facility] Comment on above: Order Comment: Speci men Type: BLOOD SPECIMEN Ordering Facility: [facility] Address: [address] [place] [address] Result Comment: Rare ly, increased serum free [...] interchangeably. Performed By: #### 2 4323-8 #### [facility] CLIA [id number] [address] [place] [address] 04166 PROTEIN ELECTROPHORESIS SERU M WITH BRANDON (P)on 05-28-2023 Albumin [Mass/Vol] 3.50 g/dL Normal 3.43-5.41 [facility] Comment on above: Order Comment: Speci men Type: BLOOD SPECIMEN Ordering Facility: [facility] Address: [address] [place] [address] Performed By: #### K LFRS #### [facility] CLIA [id number] [address] [place] [address] [place] Alpha 1 globulin Elph [Mass/Vol] 0.35 g/dL Normal 0.18-0.43 [facility] Comment on above: Order Comment: Speci men Type: BLOOD SPECIMEN Ordering Facility: [facility] Address: [address] [place] [address] Performed By: #### K LFRS #### [facility] CLIA [id number] [address] [place] [address] [place] Alpha 2 globulin Elph [Mass/Vol] 0.73 g/dL Normal 0.42-0.98 [facility] Comment on above: Order Comment: Speci men Type: BLOOD SPECIMEN Ordering Facility: [facility] Address: [address] [place] [address] Performed By: #### K LFRS #### [facility] CLIA [id number] [address] [place] [address] [place] Beta globulin Elph [Mass/Vol] 0.60 g/dL Low 0.61-1.17 [facility] Comment on above: Order Comment: Speci men Type: BLOOD SPECIMEN Ordering Facility: [facility] Address: [address] [place] [address] Performed By: #### K LFRS #### [facility] CLIA [id number] [facility] [place] [address] [place] COMMENT (SERUM PROT ELECTRO) Monoclonal Protein analysis (immunofixation) is not indicated. Normal [facility] Comment on above: Order Comment: Speci men Type: BLOOD SPECIMEN Ordering Facility: [facility] Address: [address] [place] [address] Performed By: #### K LFRS #### [facility] CLIA [id number] [address] [place] [address] [place] Gamma globulin Elph [Mass/Vol] 0.72 g/dL Normal 0.53-1.51 [facility] Comment on above: Order Comment: Speci men Type: BLOOD SPECIMEN Ordering Facility: [facility] Address: [address] [place] [address] Performed By: #### K LFRS #### [facility] CLIA [id number] [facility] [place] [address] [place] M-PROTEIN LOCATION Normal [facility] Comment on above: Order Comment: Speci men Type: BLOOD SPECIMEN Ordering Facility: [facility] Address: [address] [place] [address] Result Comment: Not Applicable. Performed By: #### K LFRS #### [facility] CLIA [id number] [address] [place] [address] [place] Protein Fractions [Interp] No definitive M protein is identified on protein electrophoresis. Normal No definitive M protein is identified on protein electrophor esis. [facility] Comment on above: Order Comment: Speci men Type: BLOOD SPECIMEN Ordering Facility: [facility] Address: [address] [place] [address] Performed By: #### K LFRS #### [facility] CLIA [id number] [facility] [place] [address] [place] Protein.monoclonal Elph [Mass/Vol] 0.00 g/dL Normal <=0.00 [facility] Comment on above: Order Comment: Speci men Type: BLOOD SPECIMEN Ordering Facility: [facility] Address: [address] [place] [address] Performed By: #### K LFRS #### [facility] CLIA [id number] [address] [place] [address] [place] SPE STAFF REVIEW Reviewed by Milka Bahena MD Normal [facility] Comment on above: Order Comment: Speci men Type: BLOOD SPECIMEN Ordering Facility: [facility] Address: [address] [place] [address] Performed By: #### K LFRS #### [facility] CLIA [id number] [facility] [place] [address] [place] Prot SerPl-mCncon 05-28-2023 Protein [Mass/Vol] 5.9 g/dL Low 6.3-8.0 [facility] Comment on above: Order Comment: Speci men Type: BLOOD SPECIMEN Ordering Facility: [facility] Address: [address] [place] [address] Performed By: #### K LFRS #### [facility] CLIA [id number] [facility] [place] [address] [place] Basophils Auto (Bld) [#/Vol] Ordered By: Lj Ryan on 05-18-2023 Basophils (Bld) [#/Vol] 0.0 10*3/uL 0.0-0.2 [facility] Basophils/100 WBC Auto (Bld) Ordered By: Lj Ryan on 05-18-2023 Basophils/100 WBC (Bld) 0.7 % . [facility] Calcium [Mass/volume] in Ser um or PlasmaOrdered By: Lj Ryan on 05-18-2023 Calcium [Mass/Vol] 8.9 mg/dL 8.6-10.3 [facility] Carbon dioxide, total [Moles /volume] in Serum or PlasmaOrdered By: Lj Ryan on 05-18-2023 CO2 [Moles/Vol] 30.5 mmol/L 21.0-31.0 [facility] Chloride [Moles/volume] in S courtney or PlasmaOrdered By: Lj Ryan on 05-18-2023 Chloride [Moles/Vol] 103 mmol/L 98-107 [facility] Creatinine [Mass/volume] in Serum or PlasmaOrdered By: Lj Ryan on 05-18-2023 Creatinine [Mass/Vol] 1.37 mg/dL 0.60-1.20 [facility] Eosinophils Auto (Bld) [#/Vo l]Ordered By: Lj Ryan on 05-18-2023 Eosinophils (Bld) [#/Vol] 0.1 10*3/uL 0.0-0.45 [facility] Eosinophils/100 WBC Auto (Bl d)Ordered By: Lj Ryan on 05-18-2023 Eosinophils/100 WBC (Bld) 1.9 % . [facility] Erythrocyte distribution wid th Auto (RBC) [Ratio]Ordered By: Lj Ryan on 05-18-2023 Erythrocyte distribution width (RBC) [Ratio] 14.1 % 11.9-15.3 [facility] Glucose [Mass/volume] in Ser um or PlasmaOrdered By: Lj Ryan on 05-18-2023 Glucose [Mass/Vol] 94 mg/dL 70-100 [facility] Comment on above: ADA recommended refe rence rangeRandom Glucose Reference Range is dependent on time and content of last meal. Glucose of more than 200 mg/dL in a nonstressed, ambulatory subject supports the diagnosis of Diabetes Mellitus. Hematocrit Auto (Bld) [Volum e fraction]Ordered By: Lj Ryan on 05-18-2023 Hematocrit (Bld) [Volume fraction] 28.2 % 34.0-46.4 [facility] Hemoglobin [Mass/volume] in BloodOrdered By: Lj Ryan on 05-18-2023 Hemoglobin (Bld) [Mass/Vol] 9.7 g/dL 11.8-15.4 [facility] Leukocytes [#/volume] correc miguel for nucleated erythrocytes in Blood by Automated counOrdered By: Lj Ryan on 05-18-2023 WBC corrected for nucl RBC Auto (Bld) [#/Vol] 6.0 10*3/uL 3.8-11.6 [facility] Lymphocytes Auto (Bld) [#/Vo l]Ordered By: Lj Ryan on 05-18-2023 Lymphocytes (Bld) [#/Vol] 0.9 10*3/uL 1.00-4.8 [facility] Lymphocytes/100 WBC Auto (Bl d)Ordered By: Lj Ryan on 05-18-2023 Lymphocytes/100 WBC (Bld) 15.1 % . [facility] MCH Auto (RBC) [Entitic mass ]Ordered By: Lj Ryan on 05-18-2023 MCH (RBC) [Entitic mass] 30.2 pg 24.7-34.3 [facility] MCHC Auto (RBC) [Mass/Vol]Or dered By: Lj Ryan on 05-18-2023 MCHC (RBC) [Mass/Vol] 34.4 g/dL 32.0-35.0 [facility] MCV Auto (RBC) [Entitic vol] Ordered By: Lj Ryan on 05-18-2023 MCV (RBC) [Entitic vol] 87.7 fL 80-100 [facility] Magnesium [Mass/volume] in S courtney or PlasmaOrdered By: Lj Ryan on 05-18-2023 Magnesium [Mass/Vol] 2.1 mg/dL 1.9-2.7 [facility] Monocytes Auto (Bld) [#/Vol] Ordered By: Lj Ryan on 05-18-2023 Monocytes (Bld) [#/Vol] 0.5 10*3/uL 0.0-0.8 [facility] Monocytes/100 WBC Auto (Bld) Ordered By: Lj Ryan on 05-18-2023 Monocytes/100 WBC (Bld) 8.7 % . [facility] Neutrophils Auto (Bld) [#/Vo l]Ordered By: Lj Ryan on 05-18-2023 Neutrophils (Bld) [#/Vol] 4.4 10*3/uL 1.8-7.7 [facility] Neutrophils/100 WBC Auto (Bl d)Ordered By: Lj Ryan on 05-18-2023 Neutrophils/100 WBC (Bld) 73.6 % . [facility] No Panel InformationOrdered By: Lj Ryan on 05-18-2023 Estimated GFR (CKD-EPI) 39.034 mL/Min [facility] Creatinine Clearance (Chem 38.04 [facility] Nucleated erythrocytes [Pres ence] in Blood by Automated countOrdered By: Lj Ryan on 05-18-2023 Nucleated RBC Auto Ql (Bld) 0.1 /100{WBC} 0-0.5 [facility] Phosphate [Mass/volume] in S courtney or PlasmaOrdered By: Lj Ryan on 05-18-2023 Phosphate [Mass/Vol] 5.3 mg/dL 3.7-7.2 [facility] Platelet mean volume Auto (B ld) [Entitic vol]Ordered By: Lj Ryan on 05-18-2023 Platelet mean volume (Bld) [Entitic vol] 7.8 fL 6.3-10.7 [facility] Platelets Auto (Bld) [#/Vol] Ordered By: Lj Ryan on 05-18-2023 Platelets (Bld) [#/Vol] 314 10*3/uL 150-450 [facility] Potassium [Moles/volume] in Serum or PlasmaOrdered By: Lj Ryan on 05-18-2023 Potassium [Moles/Vol] 4.0 mmol/L 3.5-5.1 [facility] RBC Auto (Bld) [#/Vol]Ordere d By: Lj Ryan on 05-18-2023 RBC (Bld) [#/Vol] 3.21 10*6/uL 3.60-5.00 [facility] Serum or plasma anion gap de terminationOrdered By: Lj Ryan on 05-18-2023 Anion gap [Moles/Vol] 12.5 mmol/L 6.0-15.0 [facility] Sodium [Moles/volume] in Ser um or PlasmaOrdered By: Lj Ryan on 05-18-2023 Sodium [Moles/Vol] 142 mmol/L 136-145 [facility] Urea nitrogen [Mass/volume] in Serum or PlasmaOrdered By: Lj Ryan on 05-18-2023 Urea nitrogen [Mass/Vol] 21 mg/dL 7-25 [facility] WBC Auto (Bld) [#/Vol]Ordere d By: Lj Ryan on 05-18-2023 WBC (Bld) [#/Vol] 6.0 10*3/uL 3.8-11.6 [facility] Alanine aminotransferase [En zymatic activity/volume] in Serum or PlasmaOrdered By: Fernando Ch on 05-17-2023 ALT [Catalytic activity/Vol] 14 U/L 7-52 [facility] Albumin [Mass/volume] in Ser um or Plasma by Bromocresol green (BCG) dye binding methoOrdered By: Fernando Ch on 05-17-2023 Albumin BCG dye [Mass/Vol] 4.0 g/dL 3.5-5.7 [facility] Alkaline phosphatase [Enzyma tic activity/volume] in Serum or PlasmaOrdered By: Fernando Ch on 05-17-2023 ALP [Catalytic activity/Vol] 44 U/L 34-104 [facility] Aspartate aminotransferase [ Enzymatic activity/volume] in Serum or PlasmaOrdered By: Fernando Ch on 05-17-2023 AST [Catalytic activity/Vol] 16 U/L 13-39 [facility] Bilirubin.total [Mass/volume ] in Serum or PlasmaOrdered By: Fernando Ch on 05-17-2023 Bilirubin [Mass/Vol] 0.7 mg/dL 0.3-1.0 [facility] Creatine kinase [Enzymatic a ctivity/volume] in Serum or PlasmaOrdered By: Fernando Ch 05-17-2023 CK [Catalytic activity/Vol] 49 U/L 30-223 [facility] Globulin Calc (S) [Mass/Vol] Ordered By: Fernando Ch 05-17-2023 Globulin (S) [Mass/Vol] 2.9 g/dL [facility] Laboratory - CoagulationOrde red By: Fernando Ch on 05-17-2023 PT Coag (PPP) [Time] 12.5 s 9.0-12.9 [facility] Monocyte distribution width [Entitic volume] in Blood by AutomatedOrdered By: Fernando Ch on 05-17-2023 Monocyte distribution width Auto (Bld) [Entitic vol] 22.37 % 0.00-20.00 [facility] Comment on above: For adults in ED, MD W > 20.0 may be associated with a higher risk of sepsis during the first 12 hrs of hospital admission Natriuretic peptide B [Mass/ Vol]Ordered By: Fernando Ch on 05-17-2023 Natriuretic peptide B (Bld) [Mass/Vol] 450.0 pg/mL 5-100 [facility] Platelet poor plasma interna tional normalized ratio (INR) by coagulation assay (relatOrdered By: Fernando Ch on 05-17-2023 INR Coag (PPP) [Relative time] 1.1 {INR} [facility] Comment on above: INR Therapeutic Rang [...] Protein [Mass/Vol] 6.9 g/dL 6.4-8.9 [facility] Serum or plasma albumin/glob ulin mass ratioOrdered By: Fernando Ch on 05-17-2023 Albumin/Globulin [Mass ratio] 1.4 {ratio} [facility] Troponin I.cardiac [Mass/vol ume] in Serum or Plasma by Detection limit <= 0.01 ng/Ordered By: Fernando Ch on 05-17-2023 Troponin I.cardiac DL <= 0.01 ng/mL [Mass/Vol] 10.2 pg/mL 0.0-15.0 [facility] Activated partial thrombopla stin time (aPTT) in platelet poor plasma by coagulation aOrdered By: Jonna Perry on 03-08-2023 aPTT Coag (PPP) [Time] 32.0 s 25.1-36.5 [facility] Band form neutrophils/100 WB C Manual cnt (Bld)Ordered By: Jonna Perry on 03-08-2023 Band form neutrophils/100 WBC (Bld) 4 % 0-5 [facility] Basophils Auto (Bld) [#/Vol] Ordered By: Jonna Perry on 03-08-2023 Basophils (Bld) [#/Vol] N/A [facility] Basophils/100 WBC Auto (Bld) Ordered By: Jonna Perry on 03-08-2023 Basophils/100 WBC (Bld) N/A [facility] Basophils/100 WBC Manual cnt (Bld)Ordered By: Jonna Perry on 03-08-2023 Basophils/100 WBC (Bld) 0 % 0-2 [facility] Carbon dioxide, total [Moles /volume] in Serum or PlasmaOrdered By: Jonna Perry on 03-08-2023 CO2 [Moles/Vol] 33.1 mmol/L 21.0-31.0 [facility] Chloride [Moles/volume] in S courtney or PlasmaOrdered By: Jonna Perry on 03-08-2023 Chloride [Moles/Vol] 104 mmol/L 98-107 [facility] Cholesterol [Mass/volume] in Serum or PlasmaOrdered By: Jonna Perry on 03-08-2023 Cholesterol [Mass/Vol] 151 mg/dL 140-200 [facility] Comment on above: Chol less than 200 m g/dl low riskChol 201-239 mg/dl borderline riskChol 240 mg/dl and greater high risk Cholesterol in LDL Calc [Mas s/Vol]Ordered By: Jonna Perry on 03-08-2023 Cholesterol in LDL [Mass/Vol] 100 mg/dL 0-100 [facility] Comment on above: LDL ATP III CLASSIFI CATIONLDL less than 100 mg/dL OptimalLDL 100-129 mg/dL Near or above optimalLDL 130-159 mg/dL Borderline highLDL 160-189 mg/dL HighLDL greater than 189 mg/dL Very high Cholesterol in VLDL Calc [Ma ss/Vol]Ordered By: Jonna Perry on 03-08-2023 Cholesterol in VLDL [Mass/Vol] 13 mg/dL [facility] Creatinine [Mass/volume] in Serum or PlasmaOrdered By: Jonna Perry on 03-08-2023 Creatinine [Mass/Vol] 1.14 mg/dL 0.60-1.20 [facility] Eosinophils Auto (Bld) [#/Vo l]Ordered By: Jonna Perry on 03-08-2023 Eosinophils (Bld) [#/Vol] N/A [facility] Eosinophils/100 WBC Auto (Bl d)Ordered By: Jonna Perry on 03-08-2023 Eosinophils/100 WBC (Bld) N/A [facility] Eosinophils/100 WBC Manual c nt (Bld)Ordered By: Jonna Perry on 03-08-2023 Eosinophils/100 WBC (Bld) 2 % 1-3 [facility] Erythrocyte distribution wid th Auto (RBC) [Ratio]Ordered By: Jonna Perry on 03-08-2023 Erythrocyte distribution width (RBC) [Ratio] 14.1 % 11.9-15.3 [facility] Hematocrit Auto (Bld) [Volum e fraction]Ordered By: Jonna Perry on 03-08-2023 Hematocrit (Bld) [Volume fraction] 30.7 % 34.0-46.4 [facility] Hemoglobin [Mass/volume] in BloodOrdered By: Jonna Perry on 03-08-2023 Hemoglobin (Bld) [Mass/Vol] 10.3 g/dL 11.8-15.4 [facility] Laboratory - Chemistry and C hemistry - challengeon 03-08-2023 Cholesterol [Mass/Vol] 151\S\151 Normal 140-200 [facility] y 250 DO Work Phone: Comment on above: Chol less than 200 m g/dl low risk Chol 201-239 mg/dl borderline risk Chol 240 mg/dl and greater high risk Cholesterol in LDL [Mass/Vol] 100\S\100 Normal 0-100 [facility] y 250 DO Work Phone: Comment on above: LDL ATP III CLASSIFI CATION LDL less than 100 mg/dL Optimal LDL 100-129 mg/dL Near or above optimal LDL 130-159 mg/dL Borderline high LDL 160-189 mg/dL High LDL greater than 189 mg/dL Very high Laboratory - CoagulationOrde red By: Jonna Perry on 03-08-2023 PT Coag (PPP) [Time] 12.2 s 9.0-12.9 [facility] Leukocytes [#/volume] correc miguel for nucleated erythrocytes in Blood by Automated counOrdered By: Jonna Perry on 03-08-2023 WBC corrected for nucl RBC Auto (Bld) [#/Vol] 6.2 10*3/uL 3.8-11.6 [facility] Lymphocytes Auto (Bld) [#/Vo l]Ordered By: Jonna Perry on 03-08-2023 Lymphocytes (Bld) [#/Vol] N/A [facility] Lymphocytes/100 WBC Auto (Bl d)Ordered By: Jonna Perry on 03-08-2023 Lymphocytes/100 WBC (Bld) N/A [facility] Lymphocytes/100 WBC Manual c nt (Bld)Ordered By: Jonna Perry on 03-08-2023 Lymphocytes/100 WBC (Bld) 16 % 18-42 [facility] MCH Auto (RBC) [Entitic mass ]Ordered By: Jonna Perry on 03-08-2023 MCH (RBC) [Entitic mass] 29.0 pg 24.7-34.3 [facility] MCHC Auto (RBC) [Mass/Vol]Or dered By: Jonna Perry on 03-08-2023 MCHC (RBC) [Mass/Vol] 33.6 g/dL 32.0-35.0 [facility] MCV Auto (RBC) [Entitic vol] Ordered By: Jonna Perry on 03-08-2023 MCV (RBC) [Entitic vol] 86.2 fL 80-100 [facility] Metamyelocytes/100 WBC Manua l cnt (Bld)Ordered By: Jonna Perry on 03-08-2023 Metamyelocytes/100 WBC (Bld) 1 % 0-0 [facility] Monocytes Auto (Bld) [#/Vol] Ordered By: Jonna Perry on 03-08-2023 Monocytes (Bld) [#/Vol] N/A [facility] Monocytes/100 WBC Auto (Bld) Ordered By: Jonna Perry on 03-08-2023 Monocytes/100 WBC (Bld) N/A [facility] Monocytes/100 WBC Manual cnt (Bld)Ordered By: Jonna Perry on 03-08-2023 Monocytes/100 WBC (Bld) 3 % 2-11 [facility] Neutrophils Auto (Bld) [#/Vo l]Ordered By: Jonna Perry on 03-08-2023 Neutrophils (Bld) [#/Vol] N/A [facility] Neutrophils/100 WBC Auto (Bl d)Ordered By: Jonna Perry on 03-08-2023 Neutrophils/100 WBC (Bld) N/A [facility] No Panel InformationOrdered By: Jonna Perry on 03-08-2023 Estimated GFR (CKD-EPI) 48.665 mL/Min [facility] Creatinine Clearance (Chem N/A [facility] No Panel Informationon 03-08 32.0\S\32.0 Normal 25.1-36.5 [facility] 250 DO Work Phone: Comment on above: PERFORMED BY:[facility] [place] [phone] MEDICAL DIRECTORJAMAAL MO M.D. 1.1\S\1.1 Normal [facility] DO Work Phone: Comment [...] valves: 3 - 4.5 12.2\S\12.2 Normal 9.0-12.9 [facility] DO Work Phone: 9.0\S\9.0 Normal 6.3-10.7 [facility] y 250 DO Work Phone: [phone] 33.1\S\33.1 above high threshold 21.0-31.0 [facility] 250 DO Work Phone: [phone] 104\S\104 Normal 98-107 [facility] 250 DO Work Phone: [phone] 5.1\S\5.1 Normal 3.5-5.1 [facility] 250 DO Work Phone: 141\S\141 Normal 136-145 [facility] 250 DO Work Phone: 21\S\21 Normal 7-25 [facility] 250 DO Work Phone: [phone] 48.665\S\48.665 Normal [facility] [place] 250 DO Work Phone: [phone] 1.14\S\1.14 Normal 0.60-1.20 [facility] [place] 250 DO Work Phone: [phone] 4.0\S\4.0 Normal <5.0 [facility] [place] 250 DO Work Phone: Comment on above: PERFORMED BY:[facility] [place] [phone] MEDICAL DIRECTORJAMAAL MO M.D. 13\S\13 Normal [facility] [place] 250 DO Work Phone: [phone] 67\S\67 Normal 0-149 [facility] [place] 250 DO Work Phone: Comment on above: TRIG ATP III CLASSIF ICATION TRIG less than 150 mg/dL Normal TRIG 150-199 mg/dL Borderline high TRIG 200-500 mg/dL High TRIG greater than 500 mg/dL Very high Standard traceable to the Center for Disease Conrtrol and Prevention (CDC) test method. 38\S\38 Normal 35-85 [facility] [place] 250 DO Work Phone: Comment on above: HDL CHOL ATP-III CLA SSIFICATION Cardiovascular Risk HDL > or equal to 60 mg/dL LOW HDL < 40 mg/dL HIGH 74\S\74 above high threshold 50-70 [facility] [place] 250 DO Work Phone: [phone] 276\S\276 Normal 150-450 [facility] [place] 250 DO Work Phone: 14.1\S\14.1 Normal 11.9-15.3 [facility] [place] 250 DO Work Phone: [phone] 33.6\S\33.6 Normal 32.0-35.0 [facility] [facility] 250 DO Work Phone: [phone] 29.0\S\29.0 Normal 24.7-34.3 [facility] [facility] 250 DO Work Phone: [phone] 1\S\1 above high threshold 0-0 [facility] [facility] 250 DO Work Phone: [phone] 0\S\0 Normal 0-2 [facility] [facility] 250 DO Work Phone: [phone] 2\S\2 Normal 1-3 [facility] [facility] 250 DO Work Phone: [phone] 3\S\3 Normal 2-11 [facility] [facility] 250 DO Work Phone: [phone] 16\S\16 below low threshold 18-42 [facility] [facility] 250 DO Work Phone: [phone] 4\S\4 Normal 0-5 [facility] [facility] 250 DO Work Phone: [phone] Slight Normal [facility] [facility] 250 DO Work Phone: [phone] Comment on above: PERFORMED BY:[facility] [place] [phone] MEDICAL DIRECTORJAMAAL MO M.D. Normal Normal Normal [facility] [facility] 250 DO Work Phone: [phone] 86.2\S\86.2 Normal 80-100 [facility] [facility] 250 DO Work Phone: [phone] 30.7\S\30.7 below low threshold 34.0-46.4 [facility] [facility] 250 DO Work Phone: [phone] 10.3\S\10.3 below low threshold 11.8-15.4 [facility] [facility] DO Work Phone: [phone] 3.56\S\3.56 below low threshold 3.60-5.00 [facility] [facility] 250 DO Work Phone: 8.6\S\8.6 Normal 3.8-11.6 -[facility] [facility] 250 DO Work Phone: 6.2\S\6.2 Normal 3.8-11.6 [facility] [facility] 250 DO Work Phone: Nucleated erythrocytes [Pres ence] in Blood by Automated countOrdered By: Jonna Perry on 03-08-2023 Nucleated RBC Auto Ql (Bld) N/A [facility] Ovalocyte detectionOrdered B y: Jonna Perry on 03-08-2023 Ovalocytes LM Ql (Bld) Slight [facility] Platelet adequacy [Presence] in Blood by Light microscopyOrdered By: Jonan Perry on 03-08-2023 Platelets LM Ql (Bld) Normal Normal [facility] Platelet mean volume Auto (B ld) [Entitic vol]Ordered By: Jonna Perry on 03-08-2023 Platelet mean volume (Bld) [Entitic vol] 9.0 fL 6.3-10.7 [facility] Platelet morphology finding [Identifier] in BloodOrdered By: Jonna Perry on 03-08-2023 Platelet morphology finding Nom (Bld) N/A [facility] Platelet poor plasma interna tional normalized ratio (INR) by coagulation assay (relatOrdered By: Jonna Perry on 03-08-2023 INR Coag (PPP) [Relative time] 1.1 {INR} [facility] Comment on above: INR Therapeutic Rang [...] 03-08-2023 Platelets (Bld) [#/Vol] 276 10*3/uL 150-450 [facility] Platelets Large [Presence] i n Blood by Light microscopyOrdered By: Jonna Perry on 03-08-2023 Platelets Large LM Ql (Bld) Slight [facility] Poikilocytosis [Presence] in Blood by Light microscopyOrdered By: Jonna Perry on 03-08-2023 Poikilocytosis LM Ql (Bld) Slight [facility] Potassium [Moles/volume] in Serum or PlasmaOrdered By: Jonna Perry on 03-08-2023 Potassium [Moles/Vol] 5.1 mmol/L 3.5-5.1 [facility] RBC Auto (Bld) [#/Vol]Ordere d By: Jonna Perry on 03-08-2023 RBC (Bld) [#/Vol] 3.56 10*6/uL 3.60-5.00 [facility] RBC morphologyOrdered By: Jonna Perry on 03-08-2023 RBC morphology finding Nom (Bld) N/A [facility] Segmented neutrophils/100 WB C Manual cnt (Bld)Ordered By: Jonna Perry on 03-08-2023 Segmented neutrophils/100 WBC (Bld) 74 % 50-70 [facility] Serum or plasma anion gap de terminationOrdered By: Jonna Perry on 03-08-2023 Anion gap [Moles/Vol] 9.0 mmol/L 6.0-15.0 [facility] Serum or plasma high density lipoprotein (HDL) cholesterol measurementOrdered By: Jonna Perry on 03-08-2023 Cholesterol in HDL [Mass/Vol] 38 mg/dL 35-85 [facility] [facility] Comment on above: HDL CHOL ATP-III CLA SSIFICATION Cardiovascular RiskHDL > or equal to 60 mg/dL LOWHDL < 40 mg/dL HIGH Serum or plasma total choles terol/high density lipoprotein (HDL) cholesterol mass ratOrdered By: Jonna Perry on 03-08-2023 Cholesterol.total/Cho lesterol in HDL [Mass ratio] 4.0 {ratio} <5.0 [facility] Sodium [Moles/volume] in Ser um or PlasmaOrdered By: Jonna Perry on 03-08-2023 Sodium [Moles/Vol] 141 mmol/L 136-145 [facility] Triglyceride [Mass/volume] i n Serum or PlasmaOrdered By: Jonna Perry on 03-08-2023 Triglyceride [Mass/Vol] 67 mg/dL 0-149 [facility] Comment on above: TRIG ATP III CLASSIF ICATIONTRIG less than 150 mg/dL NormalTRIG 150-199 mg/dL Borderline highTRIG 200-500 mg/dL High TRIG greater than 500 mg/dL Very highStandard traceable to the Center for Disease Conrtrol and Prevention (CDC) test method. Urea nitrogen [Mass/volume] in Serum or PlasmaOrdered By: Jonna Perry on 03-08-2023 Urea nitrogen [Mass/Vol] 21 mg/dL 7-25 [facility] WBC Auto (Bld) [#/Vol]Ordere d By: Jonna Perry on 03-08-2023 WBC (Bld) [#/Vol] 8.6 10*3/uL 3.8-11.6 [facility] Office Visit (Cardiology)on 03-07-2023 Follow-up visit [...] Former smoker Tobacco Use Screening; Status:Complete; Done: [id number] Tobacco Use Screening; Status:Complete; Done: [id number] Patient Instructions Please bring all medicines, vitamins, [...] associated with accelerated hypertension, was admitted to [place] briefly, diuresed approximately 14 pounds with diuretics. [...] 1 coffee at hs Former smoker (V15.82) (Z87.221) 1997 No alcohol use No illicit drug [...] negative for complaint. Vitals Vital Signs Recorded: [id number] 10:14AMRecorded: [id number] 10:04AM [id number], RUE, [id number] (more content not included)... Normal [place] Tobacco Screening.on 023 Adult depression screening assessment No [facility] 250 DO Work Phone: Fall risk assessment a) No falls within the last year [facility] 250 DO Work Phone: Tobacco use status CP b) No [facility] 250 DO Work Phone: CBC AUTO DIFFon 03-01-2023 BASO # 0.0 103/ul Normal 0.0-0.1 [facility] Comment on above: Performed By: #### C BC #### [facility] [address] [place] [address] Dr. Jose David Shanks Basophils/100 WBC (Bld) 0.5 % Normal 0.2-2.0 [facility] Comment on above: Performed By: #### C BC #### [facility] [address] [place], [place] [address] Dr. Jose David Shanks EO # 0.1 103/ul Normal 0.0-0.7 [facility] Comment on above: Performed By: #### C BC #### [facility] [address] [place] [address] Dr. Jose David Shanks Eosinophils/100 WBC (Bld) 1.2 % Normal 0.9-7.0 [facility] Comment on above: Performed By: #### C BC #### [facility] [address] [place] [address] Dr. Jose David Shanks Erythrocyte distribution width (RBC) [Ratio] 13.2 % Normal 11.0-15.0 [facility] Comment on above: Performed By: #### C BC #### [facility] [address] [place] [address] Dr. Jose David Shanks Hematocrit (Bld) [Volume fraction] 33.9 % Critically low 36.0-48.0 [facility] Comment on above: Performed By: #### C BC #### [facility] [address] [place] [address] Dr. Jose David Shanks Hemoglobin (Bld) [Mass/Vol] 11.0 g/dL Critically low 12.0-16.0 [facility] Comment on above: Performed By: #### C BC #### [facility] [address] [place] [address] Dr. Jose David Shanks IG # 0.03 10e3/ul Normal 0.00-0.03 [facility] Comment on above: Performed By: #### C BC #### [facility] [address] [place] [address] Dr. Jose David Shanks IG % 0.5 % Normal 0.0-0.5 [facility] Comment on above: Performed By: #### C BC #### [facility] [address] [place] [address] Dr. Jose David Shanks LYMPH # 0.8 103/ul Critically low 1.2-3.[address] [facility] Comment on above: Performed By: #### C BC #### [facility] [address] [place] [address] Dr. Jose David Shanks Lymphocytes/100 WBC (Bld) 13.7 % Critically low 20.5-60.0 [facility] Comment on above: Performed By: #### C BC #### [facility] [address] [place] [address] Dr. Jose David Shanks MANUAL DIFF REQ NO Normal [facility] Comment on above: Performed By: #### C BC #### [facility] [address] [place] [address] Dr. Jose David Shanks MCH (RBC) [Entitic mass] 28.9 pg Normal 26.7-34.0 [facility] Comment on above: Performed By: #### C BC #### [facility] [address] [place] [address] Dr. Jose David Shanks MCHC (RBC) [Mass/Vol] 32.4 g/dL Normal 29.9-35.2 [facility] Comment on above: Performed By: #### C BC #### [facility] [address] [place] [address] Dr. Jose David Shanks MCV (RBC) [Entitic vol] 89.0 fL Normal 81.0-99.0 [facility] Comment on above: Performed By: #### C BC #### [facility] [address] [place] [address] Dr. Jose David Shanks MONO # 0.5 103/ul Normal 0.3-0.8 [facility] Comment on above: Performed By: #### C BC #### [facility] [address] [place] [address] Dr. Jose David Shanks Monocytes/100 WBC (Bld) 8.2 % Normal 1.7-12.0 [facility] Comment on above: Performed By: #### C BC #### [facility] [address] [place] [address] Dr. Jose David Shanks NEUT # 4.3 103/ul Normal 1.4-6.5 [facility] Comment on above: Performed By: #### C BC #### [facility] [address] [place] [address] Dr. Jose David Shanks Neutrophils/100 WBC (Bld) 75.9 % Critically high 43.0-75.0 [facility] Comment on above: Performed By: #### C BC #### [facility] [address] [place] [address] Dr. Jose David Shanks Platelet mean volume (Bld) [Entitic vol] 10.1 fL Normal 9.5-13.5 [facility] Comment on above: Performed By: #### C BC #### [facility] [address] [place] [address] Dr. Jose David Shanks PLT 279 103/ul Normal 150-450 [facility] Comment on above: Performed By: #### C BC #### [facility] [address] [place] [address] Dr. Jose David Shanks RBC 3.81 106/ul Critically low 4.20-5.40 [facility] Comment on above: Performed By: #### C BC #### [facility] [address] [place] [address] Dr. Jose David Shanks WBC 5.7 103/ul Normal 4.0-11.0 [facility] Comment on above: Performed By: #### C BC #### [facility] [address] [place] [address] Dr. Jose David Shanks FERRITINon 03-01-2023 Ferritin [Mass/Vol] 180.0 ng/mL Normal 8.0-252.0 [facility] Comment on above: Performed By: #### C BC #### [facility] [address] [place] [address] Dr. Jose David Shanks IRON AND TIBCon 03-01-2023 % SATURATION 23.6 % Normal [facility] Comment on above: Performed By: #### C BC #### [facility] [address] [place] [address] Dr. Jose David Shanks Iron [Mass/Vol] 61.0 ug/dL Normal 50.0-170.0 [facility] Comment on above: Performed By: #### C BC #### [facility] [address] [place] [address] Dr. Jose David Shanks TIBC DIRECT 258.0 ug/dL Normal 250.0-450.0 [facility] Comment on above: Performed By: #### C BC #### [facility] [address] [place] [address] [address] Jose David Shanks NM STRESS/REST MULTIon 03-01 NM STRESS/REST MULTI Patient: GERMANIA JOAQUIN Exam Date: 03/01/2023 : 1940 Gender:F Ordering : DR NATHAN HTAHAWAY D.O. Admission #: [id number] Family : Order #: [id number] CLICK HERE TO VIEW EXAM RADIOLOGY REPORT [...] STUDY: PERFUSION DEFECT: LOCATION: Mid-anterior. Apical anterior. [place]. SIZE: Medium (3-4 segments). SEVERITY: Moderate. TYPE: [...] MD on 03/01/2023 at 14:54 Normal [facility] PROF CHEM 8 (BAS METB)on Anion gap [Moles/Vol] 8.8 mmol/L Normal [facility] Comment on above: Performed By: #### L ACT #### [facility] [address] [address] [address] Jose David Shanks Calcium [Mass/Vol] 9.0 mg/dL Normal 8.5-10.1 [facility] Comment on above: Performed By: #### L ACT #### [facility] [address] [address] [address] Jose David Shanks Chloride [Moles/Vol] 106 mmol/L Normal 98-107 [facility] Comment on above: Performed By: #### L ACT #### [facility] [address] [address] [address] Jose David Shanks CO2 [Moles/Vol] 31.0 mmol/L Normal 21.0-32.0 [facility] Comment on above: Performed By: #### L ACT #### [facility] [address] [address] [address] Jose David Shanks Creatinine [Mass/Vol] 1.18 mg/dL Critically high 0.55-1.02 [facility] Comment on above: Performed By: #### L ACT #### [facility] [address] [address] [address] Jose David Shanks EGFR-AF [place] 53 mL/min/1.73m2 Critically low >=60 [facility] Comment on above: Performed By: #### L ACT #### [facility] [address] [address] [address] Jose David Shanks EGFR-NON AF [place] 44 mL/min/1.73m2 Critically low >=60 [facility] Comment on above: Performed By: #### L ACT #### [facility] [address] [place] [address] [address] Jose David Shanks Glucose [Mass/Vol] 98 mg/dL Normal 74-106 [facility] Comment on above: Performed By: #### L ACT #### [facility] [address] [address] [address] Jose David Shanks Potassium [Moles/Vol] 4.8 mmol/L Normal 3.5-5.1 [facility] Comment on above: Performed By: #### L ACT #### [facility] [address] [place] [address] Dr. Jose David Shanks Sodium [Moles/Vol] 141 mmol/L Normal 136-145 [facility] Comment on above: Performed By: #### L ACT #### [facility] [address] [place] [address] Dr. Jose David Shanks Urea nitrogen [Mass/Vol] 16.0 mg/dL Normal 7.0-18.0 [facility] Comment on above: Performed By: #### L ACT #### [facility] [address] [place] [address] Dr. Jose David Shanks Urea nitrogen/Creatinine [Mass ratio] 13.6 mg/mg Normal [facility] Comment on above: Performed By: #### L ACT #### [facility] [address] [place] [address] Dr. Jose David Shanks RETICULOCYTEon 03-01-2023 RETIC 1.51 % Normal 0.60-3.10 [facility] Comment on above: Performed By: #### C BC #### [facility] [address] [place] [address] Dr. Jose David Shanks VIT B12 AND FOLATEon 023 Cobalamin (Vitamin B12) [Mass/Vol] 1406.0 pg/mL Critically high 193.0-986.0 [facility] Comment on above: Performed By: #### C BC #### [facility] [address] [place] [address] Dr. Jose David Shanks FOLATE 19.00 ng/mL Normal 8.60-58.90 [facility] Comment on above: Performed By: #### C BC #### [facility] [address] [place] [address] Dr. Jose David Shanks CBC AUTO DIFFon 02-09-2023 BASO # 0.0 103/ul Normal 0.0-0.1 [facility] Comment on above: Performed By: #### C BC #### [facility] [address] [place] [address] Dr. Jose David Shanks Basophils/100 WBC (Bld) 0.6 % Normal 0.2-2.0 [facility] Comment on above: Performed By: #### C BC #### [facility] [address] [place] [address] Dr. Jose David Shanks EO # 0.1 103/ul Normal 0.0-0.7 [facility] Comment on above: Performed By: #### C BC #### [facility] [address] [place] [address] Dr. Jose David Shanks Eosinophils/100 WBC (Bld) 2.7 % Normal 0.9-7.0 [facility] Comment on above: Performed By: #### C BC #### [facility] [address] [place] [address] Dr. Jose David Shanks Erythrocyte distribution width (RBC) [Ratio] 13.5 % Normal 11.0-15.0 [facility] Comment on above: Performed By: #### C BC #### [facility] [address] [place] [address] Dr. Jose David Shanks Hematocrit (Bld) [Volume fraction] 30.0 % Critically low 36.0-48.0 [facility] Comment on above: Performed By: #### C BC #### [facility] [address] [place] [address] Dr. Jose David Shanks Hemoglobin (Bld) [Mass/Vol] 10.0 g/dL Critically low 12.0-16.0 [facility] Comment on above: Performed By: #### C BC #### [facility] [address] [place] [address] Dr. Jose David Shanks IG # 0.02 10e3/ul Normal 0.00-0.03 [facility] Comment on above: Performed By: #### C BC #### [facility] [address] [place] [address] Dr. Jose David Shanks IG % 0.4 % Normal 0.0-0.5 [facility] Comment on above: Performed By: #### C BC #### [facility] [address] [place] [address] Dr. Jose David Shanks LYMPH # 0.9 103/ul Critically low 1.2-3.8 [facility] Comment on above: Performed By: #### C BC #### [facility] [address] [address] [address] Jose David Shanks Lymphocytes/100 WBC (Bld) 19.3 % Critically low 20.5-60.0 [facility] Comment on above: Performed By: #### C BC #### [facility] [address] [place] [address] Dr. Jose David Shanks MANUAL DIFF REQ NO Normal [facility] Comment on above: Performed By: #### C BC #### [facility] [address] [place] [address] Dr. Jose David Shanks MCH (RBC) [Entitic mass] 29.3 pg Normal 26.7-34.0 [facility] Comment on above: Performed By: #### C BC #### [facility] [address] [place] [address] Dr. Jose David Shanks MCHC (RBC) [Mass/Vol] 33.3 g/dL Normal 29.9-35.2 [facility] Comment on above: Performed By: #### C BC #### [facility] [address] [place] [address] Dr. Jose David Shanks MCV (RBC) [Entitic vol] 88.0 fL Normal 81.0-99.0 [facility] Comment on above: Performed By: #### C BC #### [facility] [address] [place] [address] Dr. Jose David Shanks MONO # 0.4 103/ul Normal 0.3-0.8 [facility] Comment on above: Performed By: #### C BC #### [facility] [address] [place] [address] Dr. Jose David Shanks Monocytes/100 WBC (Bld) 8.3 % Normal 1.7-12.0 [facility] Comment on above: Performed By: #### C BC #### [facility] [address] [place] [address] Dr. Jose David Shanks NEUT # 3.3 103/ul Normal 1.4-6.5 [facility] Comment on above: Performed By: #### C BC #### [facility] [address] [address] [address] Jose David Shanks Neutrophils/100 WBC (Bld) 68.7 % Normal 43.0-75.0 [facility] Comment on above: Performed By: #### C BC #### [facility] [address] [address] [address] Jose David Shanks Platelet mean volume (Bld) [Entitic vol] 9.9 fL Normal 9.5-13.5 [facility] Comment on above: Performed By: #### C BC #### [facility] [address] [address] [address] Jose David Shanks PLT 259 103/ul Normal 150-450 [facility] Comment on above: Performed By: #### C BC #### [facility] [address] [place] [address] Dr. Jose David Shanks RBC 3.41 106/ul Critically low 4.20-5.40 [facility] Comment on above: Performed By: #### C BC #### [facility] [address] [address] [address] Jose David Shanks WBC 4.8 103/ul Normal 4.0-11.0 [facility] Comment on above: Performed By: #### C BC #### [facility] [address] [place] [address] Dr. Jose David Shanks PROF CHEM 8 (BAS METB)on Anion gap [Moles/Vol] 11.7 mmol/L Normal [facility] Comment on above: Performed By: #### L ACT #### [facility] [address] [place] [address] Dr. Jose David Shanks Calcium [Mass/Vol] 8.6 mg/dL Normal 8.5-10.1 [facility] Comment on above: Performed By: #### L ACT #### [facility] [address] [address] [address] Jose David Shanks Chloride [Moles/Vol] 107 mmol/L Normal 98-107 [facility] Comment on above: Performed By: #### L ACT #### [facility] [address] [address] [address] Jose David Shanks CO2 [Moles/Vol] 30.9 mmol/L Normal 21.0-32.0 [facility] Comment on above: Performed By: #### L ACT #### [facility] [address] [address] [address] Jose David Shanks Creatinine [Mass/Vol] 1.04 mg/dL Critically high 0.55-1.02 [facility] Comment on above: Performed By: #### L ACT #### [facility] [address] [address] [address] Jose David Shanks EGFR-AF [place] >60 Normal >=60 [facility] Comment on above: Performed By: #### L ACT #### [facility] [address] [address] [address] Jose David Shanks EGFR-NON AF [place] 51 mL/min/1.73m2 Critically low >=60 [facility] Comment on above: Performed By: #### L ACT #### [facility] [address] [address] [address] Jose David Shanks Glucose [Mass/Vol] 97 mg/dL Normal 74-106 [facility] Comment on above: Performed By: #### L ACT #### [facility] [address] [address] [address] Jose David Shanks Potassium [Moles/Vol] 3.6 mmol/L Normal 3.5-5.1 [facility] Comment on above: Performed By: #### L ACT #### [facility] [address] [address] [address] Jose David Shanks Sodium [Moles/Vol] 146 mmol/L Critically high 136-145 [facility] Comment on above: Performed By: #### L ACT #### [facility] [address] [address] [address] Jose David Shanks Urea nitrogen [Mass/Vol] 17.0 mg/dL Normal 7.0-18.0 [facility] Comment on above: Performed By: #### L ACT #### [facility] [address] [address] [address] Jose David Shanks Urea nitrogen/Creatinine [Mass ratio] 16.3 mg/mg Normal [facility] Comment on above: Performed By: #### L ACT #### [facility] [address] [address] [address] Jose David Shanks XR CHEST 2 [...] EDWARD MENA Date: 2023-02-09 15:56 Normal [facility] BNPon 02-08-2023 Natriuretic peptide B (Bld) [Mass/Vol] 1007.0 pg/mL Normal <=1,800.0 [facility] Comment on above: Performed By: #### B COLOR GRINDER #### [facility] [address] [place] [address] Dr. Jose David Shanks CARDIAC TALI 3-6on 3 CK [Catalytic activity/Vol] 29 U/L Normal 26-192 [facility] Comment on above: Performed By: #### C MREP #### [facility] [address] [address] [address] Jose David Shanks CK.MB [Mass/Vol] 0.90 ng/mL Normal <=3.60 [facility] Comment on above: Performed By: #### C MREP #### [facility] [address] [place] [address] Dr. Jose David Shanks HSTROP 69.4 pg/mL Critically high 4.0-51.3 [facility] Comment on above: Result Comment: CUT- OFF POINTS HAVE BEEN ESTABLISHED BASED ON THE FOURTH UNIVERSAL DEFINITIONS OF MYOCARDIAL INFARCTION. THE UPPER REFERENCE LIMIT (URL) OF TROPONIN, DEFINED THE 99TH PERCENTILE OF cTnI DISTRIBUTION IN A REFERENCE POPULATION, HAS BEEN CONFIRMED THE DECISION THRESHOLD FOR KS DIAGNOSIS. Performed By: #### C MREP #### [facility] [address] [address] [address] Jose David Shanks CK [Catalytic activity/Vol] 23 U/L Critically low 26-192 [facility] Comment on above: Performed By: #### C MREP #### [facility] [address] [address] [address] Jose David Shanks CK.MB [Mass/Vol] ng/mL Normal <=3.60 [facility] Comment on above: Performed By: #### C MREP #### [facility] [address] [address] [address] Jose David Shanks HSTROP 72.0 pg/mL Critically high 4.0-51.3 [facility] Comment on above: Result Comment: CUT- OFF POINTS HAVE BEEN ESTABLISHED BASED ON THE FOURTH UNIVERSAL DEFINITIONS OF MYOCARDIAL INFARCTION. THE UPPER REFERENCE LIMIT (URL) OF TROPONIN, DEFINED THE 99TH PERCENTILE OF cTnI DISTRIBUTION IN A REFERENCE POPULATION, HAS BEEN CONFIRMED THE DECISION THRESHOLD FOR KS DIAGNOSIS. Performed By: #### C MREP #### [facility] [address] [address] [address] Jose David Shanks CARDIAC TALI ADMITon 023 CK [Catalytic activity/Vol] 31 U/L Normal 26-192 [facility] Comment on above: Performed By: #### C ELZA, BMP #### [facility] [address] [address] [address] Jose David Shanks CK.MB [Mass/Vol] ng/mL Normal <=3.60 [facility] Comment on above: Performed By: #### C ELZA, BMP #### [facility] [address] [address] [address] Jose David Shanks HSTROP 26.3 pg/mL Normal 4.0-51.3 [facility] Comment on above: Result Comment: CUT- OFF POINTS HAVE BEEN ESTABLISHED BASED ON THE FOURTH UNIVERSAL DEFINITIONS OF MYOCARDIAL INFARCTION. THE UPPER REFERENCE LIMIT (URL) OF TROPONIN, DEFINED THE 99TH PERCENTILE OF cTnI DISTRIBUTION IN A REFERENCE POPULATION, HAS BEEN CONFIRMED THE DECISION THRESHOLD FOR KS DIAGNOSIS. Performed By: #### C ELZA, CASSIE #### [facility] [address] [address] [address] Jose David Shanks MAMI 52 ng/mL Normal 9-82 [facility] Comment on above: Performed By: #### C ELZA, BMP #### [facility] [address] [address] [address] Jose David Shanks CBC AUTO DIFFon 02-08-2023 BASO # 0.0 103/ul Normal 0.0-0.1 [facility] Comment on above: Performed By: #### L ACT #### [facility] [address] [place] [address] Dr. Jose David Shanks Basophils/100 WBC (Bld) 0.3 % Normal 0.2-2.0 [facility] Comment on above: Performed By: #### L ACT #### [facility] [address] [place] [address] Dr. Jose David Shanks EO # 0.1 103/ul Normal 0.0-0.7 [facility] Comment on above: Performed By: #### L ACT #### [facility] [address] [place] [address] Dr. Jose David Shanks Eosinophils/100 WBC (Bld) 0.5 % Critically low 0.9-7.0 [facility] Comment on above: Performed By: #### L ACT #### [facility] [address] [place] [address] Dr. Jose David Shanks Erythrocyte distribution width (RBC) [Ratio] 13.4 % Normal 11.0-15.0 [facility] Comment on above: Performed By: #### L ACT #### [facility] [address] [place] [address] Dr. Jose David Shanks Hematocrit (Bld) [Volume fraction] 33.0 % Critically low 36.0-48.0 [facility] Comment on above: Performed By: #### L ACT #### [facility] [address] [address] [address] Jose David Shanks Hemoglobin (Bld) [Mass/Vol] 11.1 g/dL Critically low 12.0-16.0 [facility] [facility] Comment on above: Performed By: #### L ACT #### [facility] [address] [address] [address] Jose David Shanks IG # 0.06 10e3/ul Critically high 0.00-0.03 [facility] Comment on above: Performed By: #### L ACT #### [facility] [address] [address] [address] Jose David Shanks IG % 0.5 % Normal 0.0-0.5 [facility] Comment on above: Performed By: #### L ACT #### [facility] [address] [address] [address] Jose David Shanks LYMPH # 0.8 103/ul Critically low 1.2-3.[address] [facility] Comment on above: Performed By: #### L ACT #### [facility] [address] [address] [address] Jose David Shanks Lymphocytes/100 WBC (Bld) 7.0 % Critically low 20.5-60.0 [facility] Comment on above: Performed By: #### L ACT #### [facility] [address] [address] [address] Jose David Shanks MANUAL DIFF REQ NO Normal [facility] Comment on above: Performed By: #### L ACT #### [facility] [address] [address] [address] Jose David Shanks MCH (RBC) [Entitic mass] 29.6 pg Normal 26.7-34.0 [facility] Comment on above: Performed By: #### L ACT #### [facility] [address] [address] [address] Jose David Shanks MCHC (RBC) [Mass/Vol] 33.6 g/dL Normal 29.9-35.2 [facility] Comment on above: Performed By: #### L ACT #### [facility] [address] [address] [address] Jose David Shanks MCV (RBC) [Entitic vol] 88.0 fL Normal 81.0-99.0 [facility] Comment on above: Performed By: #### L ACT #### [facility] [address] [place] [address] Dr. Jose David Shanks MONO # 0.6 103/ul Normal 0.3-0.8 [facility] Comment on above: Performed By: #### L ACT #### [facility] [address] [place] [address] Dr. Jose David Shanks Monocytes/100 WBC (Bld) 5.4 % Normal 1.7-12.0 [facility] Comment on above: Performed By: #### L ACT #### [facility] [address] [place] [address] Dr. Jose David Shanks NEUT # 9.9 103/ul Critically high 1.4-6.5 [facility] Comment on above: Performed By: #### L ACT #### [facility] [address] [place] [address] Dr. Jose David Shanks Neutrophils/100 WBC (Bld) 86.3 % Critically high 43.0-75.0 [facility] Comment on above: Performed By: #### L ACT #### [facility] [address] [place] [address] Dr. Jose David Shanks Platelet mean volume (Bld) [Entitic vol] 10.1 fL Normal 9.5-13.5 [facility] Comment on above: Performed By: #### L ACT #### [facility] [address] [place] [address] Dr. Jose David Shanks PLT 333 103/ul Normal 150-450 [facility] Comment on above: Performed By: #### L ACT #### [facility] [address] [place] [address] Dr. Jose David Shanks RBC 3.75 106/ul Critically low 4.20-5.40 [facility] Comment on above: Performed By: #### L ACT #### [facility] [address] [place] [address] Dr. Jose David Shanks WBC 11.5 103/ul Critically high 4.0-11.0 [facility] Comment on above: Performed By: #### L ACT #### [facility] [id number] Jose David Shanks CULTURE BLOODon 02-08-2023 Microscopic examination of blood, culture Culture Observations: NO GROWTH AT 5 DAYS. Normal [facility] Comment on above: Performed By: #### L ACT #### [facility] [address] [address] [address] Jose David Shanks Microscopic examination of blood, culture Culture Observations: NO GROWTH AT 5 DAYS. Normal [facility] Comment on above: Performed By: #### L ACT #### [facility] [address] [place] [address] Dr. Jose David Shanks ECHOCARDIO M/2D COMPLETEon 0 02-08-2023 ECHOCARDIO M/2D COMPLETE Patient: LASHAUN JOAQUIN Exam Date: 02/08/2023 : 1940 Gender:F Ordering : DR KOFI SCOTT . Admission #: [id number] Family : DR NATHAN HATHAWAY D.O. Order #: [id number] CLICK HERE TO VIEW EXAM ECHOCARDIOGRAM REPORT [...] Payne M.D. on 02/09/2023 at 19:11 Normal [facility] LACTATE/LACTIC ACIDon 2022 Lactate [Moles/Vol] 1.4 mmol/L Normal 0.4-2.0 [facility] Comment on above: Performed By: #### L ACT #### [facility] [address] [place] [address] Dr. Jose David Shanks Lactate [Moles/Vol] 1.4 mmol/L Normal 0.4-2.0 [facility] Comment on above: Performed By: #### L ACT #### [facility] [address] [place] [address] Dr. Jose David Shanks PROF CHEM 8 (BAS METB)on Anion gap [Moles/Vol] 11.9 mmol/L Normal [facility] Comment on above: Performed By: #### C ABHIJITM, BMP #### [facility] [address] [address] [address] Jose David Shanks Calcium [Mass/Vol] 9.0 mg/dL Normal 8.5-10.1 [facility] Comment on above: Performed By: #### C MADM, BMP #### [facility] [address] [address] [address] Jose David Shanks Chloride [Moles/Vol] 105 mmol/L Normal 98-107 [facility] Comment on above: Performed By: #### C ABHIJITM, BMP #### [facility] [address] [address] [address] Jose David Shanks CO2 [Moles/Vol] 28.2 mmol/L Normal 21.0-32.0 [facility] Comment on above: Performed By: #### C MADM, BMP #### [facility] [address] [address] [address] Jose David Shanks Creatinine [Mass/Vol] 0.99 mg/dL Normal 0.55-1.02 [facility] Comment on above: Performed By: #### C MADM, BMP #### [facility] [address] [address] [address] Jose David Shanks EGFR-AF [place] >60 Normal >=60 [facility] Comment on above: Performed By: #### C MADM, BMP #### [facility] [address] [address] [address] Jose David Shanks EGFR-NON AF [place] 54 mL/min/1.73m2 Critically low >=60 [facility] Comment on above: Performed By: #### C MADM, BMP #### [facility] [address] [address] [address] Jose David Shanks Glucose [Mass/Vol] 123 mg/dL Critically high 74-106 [facility] Comment on above: Performed By: #### C MADM, BMP #### [facility] [address] [address] [address] Jose David Shanks Potassium [Moles/Vol] 4.1 mmol/L Normal 3.5-5.1 [facility] Comment on above: Performed By: #### C MADM, BMP #### [facility] [address] [address] [address] Jose David Shanks Sodium [Moles/Vol] 141 mmol/L Normal 136-145 [facility] Comment on above: Performed By: #### C MADM, BMP #### [facility] [address] [address] [address] Jose David Shanks Urea nitrogen [Mass/Vol] 14.0 mg/dL Normal 7.0-18.0 [facility] Comment on above: Performed By: #### C MADM, BMP #### [facility] [address] [address] [address] Jose David Shanks Urea nitrogen/Creatinine [Mass ratio] 14.1 mg/mg Normal [facility] Comment on above: Performed By: #### C MADM, BMP #### [facility] [address] [place] [address] Dr. Jose David Shanks RESPIRATORY PANEL PLUSon Adenovirus Not detected Normal NOT DETECTED [facility] Comment on above: Performed By: #### R SPLUS #### [facility] [address] [place] [address] Dr. Jose David Mccormack Parapertusis Not detected Normal NOT DETECTED [facility] Comment on above: Performed By: #### R SPLUS #### [facility] [address] [place] [address] Dr. Jose David Mccormack Pertussis Not detected Normal NOT DETECTED [facility] Comment on above: Performed By: #### R SPLUS #### [facility] [address] [place] [address] Dr. Jose David Shanks Chlamydia Pneumoniae Not detected Normal NOT DETECTED [facility] Comment on above: Performed By: #### R SPLUS #### [facility] [address] [place] [address] Dr. Jose David Shanks Coronavirus 229E Not detected Normal NOT DETECTED [facility] Comment on above: Performed By: #### R SPLUS #### [facility] [address] [place] [address] Dr. Jose David Shanks Coronavirus HKU1 Not detected Normal NOT DETECTED [facility] Comment on above: Performed By: #### R SPLUS #### [facility] [address] [place] [address] Dr. Jose David Shanks Coronavirus NL63 Not detected Normal NOT DETECTED [facility] Comment on above: Performed By: #### R SPLUS #### [facility] [address] [place] [address] Dr. Jose David Shanks Coronavirus OC43 Not detected Normal NOT DETECTED [facility] Comment on above: Performed By: #### R SPLUS #### [facility] [address] [place] [address] Dr. Jose David Shanks Influenza A H1 Not detected Normal NOT DETECTED [facility] Comment on above: Performed By: #### R SPLUS #### [facility] [address] [address] [address] Jose David Shanks Influenza A H1 2009 Not detected Normal NOT DETECTED [facility] Comment on above: Performed By: #### R SPLUS #### [facility] [address] [address] [address] Jose David Shanks Influenza A H3 Not detected Normal NOT DETECTED [facility] Comment on above: Performed By: #### R SPLUS #### [facility] [address] [place] [address] Dr. Jose David Shanks Influenza B Not detected Normal NOT DETECTED [facility] Comment on above: Performed By: #### R SPLUS #### [facility] [address] [address] [address] Jose David Shanks Metapneumovirus Not detected Normal NOT DETECTED [facility] Comment on above: Performed By: #### R SPLUS #### [facility] [address] [place] [address] Dr. Jose David Shanks Mycoplas. Pneumoniae Not detected Normal NOT DETECTED [facility] Comment on above: Performed By: #### R SPLUS #### [facility] [address] [place] [address] Dr. Jose David Shanks Parainfluenza 1 Not detected Normal NOT DETECTED [facility] Comment on above: Performed By: #### R SPLUS #### [facility] [address] [address] [address] Jose David Shanks Parainfluenza 2 Not detected Normal NOT DETECTED [facility] Comment on above: Performed By: #### R SPLUS #### [facility] [address] [place] [address] Dr. Jose David Shanks Parainfluenza 3 Not detected Normal NOT DETECTED [facility] Comment on above: Performed By: #### R SPLUS #### [facility] [address] [address] [address] Jose David Shanks Parainfluenza 4 Not detected Normal NOT DETECTED [facility] Comment on above: Performed By: #### R SPLUS #### [facility] [address] [place] [address] Dr. Jose David Shanks Rhino/Enterovirus Not detected Normal NOT DETECTED [facility] Comment on above: Performed By: #### R SPLUS #### [facility] [address] [place] [address] Dr. Jose David Shanks RP2 Header 1 RESPIRATORY PANEL: VIRUSES Normal [facility] Comment on above: Performed By: #### R SPLUS #### [facility] [address] [place] [address] Dr. Jose David Shanks RP2 Header 2 RESPIRATORY PANEL: BACTERIA Normal [facility] Comment on above: Performed By: #### R SPLUS #### [facility] [address] [place] [address] Dr. Jose David Shanks RSV Not detected Normal NOT DETECTED [facility] Comment on above: Performed By: #### R SPLUS #### [facility] [address] [place] [address] Dr. Jose David Shanks SARS-CoV-2 (COVID-19) RNA ZABRINA+probe Ql (Unsp spec) Not detected Normal NOT DETECTED [facility] Comment on above: Performed By: #### R SPLUS #### [facility] [address] [place] [address] Dr. Jose David Shanks XR CHEST 1 [...] Petra SAHU Date: 2023-02-08 05:21 Normal [facility] MG MAMM SCREEN 3D SCARLETT CADon 01-08-2023 MG MAMM SCREEN 3D SCARLETT CAD Patient: LASHAUN JOAQUIN Exam Date: 01/08/2023 : 1940 Gender:F Ordering : DR NATHAN HATHAWAY D.O. Admission #: [id number] Family : Order #: [id number] CLICK HERE TO VIEW EXAM RADIOLOGY REPORT [...] lung cancer at age 62. LOCATION: [facility] BREAST COMPOSITION: Extremely dense, which lowers [...] MD on 01/08/2023 at 11:24 Normal [facility] CNOVSPon 12-04-2022 CNOVSP Visit (SP) Office (JONATHON) ----- LASHAUN JOAQUIN ([id number]) 1940 F Date Time Provider Department 12/04/22 [...] lower extremiti (more content not included)... Normal [facility] CBC W Auto Differential pane l (Bld)on 11-27-2022 Basophils (Bld) [#/Vol] 0.04 10*3/uL Normal <0.11 [facility] Comment on above: Order Comment: Speci men Type: BLOOD SPECIMEN Ordering Facility: [facility] Address: [address] [address] Performed By: #### 5 7021-8 #### [facility] CLIA [id number] [address] [place] [address] Basophils/100 WBC (Bld) 0.8 % Normal [facility] Comment on above: Order Comment: Speci men Type: BLOOD SPECIMEN Ordering Facility: [facility] Address: [address] [address] Performed By: #### 5 7021-8 #### [facility] CLIA [id number] [address] [place] [address] Differential cell count method Nom (Bld) Auto Normal [facility] Comment on above: Order Comment: Speci men Type: BLOOD SPECIMEN Ordering Facility: [facility] Address: [address] [address] Performed By: #### 5 7021-8 #### [facility] CLIA [id number] [address] [place] [address] Eosinophils (Bld) [#/Vol] 0.10 10*3/uL Normal <0.46 [facility] Comment on above: Order Comment: Speci men Type: BLOOD SPECIMEN Ordering Facility: [facility] Address: [address] [address] Performed By: #### 5 7021-8 #### [facility] CLIA [id number] [address] [place] [address] Eosinophils/100 WBC (Bld) 2.0 % Normal [facility] Comment on above: Order Comment: Speci men Type: BLOOD SPECIMEN Ordering Facility: [facility] Address: [address] [address] Performed By: #### 5 7021-8 #### [facility] CLIA [id number] [address] [place] [address] Erythrocyte distribution width (RBC) [Ratio] 13.2 % Normal 11.5-15.0 [facility] Comment on above: Order Comment: Speci men Type: BLOOD SPECIMEN Ordering Facility: [facility] Address: [address] [place] [address] Performed By: #### 5 7021-8 #### [facility] CLIA [id number] [address] [place] [address] Hematocrit (Bld) [Volume fraction] 33.9 % Low 36.0-46.0 [facility] Comment on above: Order Comment: Speci men Type: BLOOD SPECIMEN Ordering Facility: [facility] Address: [address] [place] [address] Performed By: #### 5 7021-8 #### [facility] CLIA [id number] [address] [place] [address] 24266 Hemoglobin (Bld) [Mass/Vol] 10.9 g/dL Low 11.5-15.5 [facility] Comment on above: Order Comment: Speci men Type: BLOOD SPECIMEN Ordering Facility: [facility] Address: [address] [place] [address] Performed By: #### 5 7021-8 #### [facility] CLIA [id number] [address] [place] [address]253 Immature granulocytes (Bld) [#/Vol] 0.04 10*3/uL Normal <0.10 [facility] Comment on above: Order Comment: Speci men Type: BLOOD SPECIMEN Ordering Facility: [facility] Address: [address] [place] [address] Performed By: #### 5 7021-8 #### [facility] CLIA [id number] [address] [place] [address] Immature granulocytes/100 WBC (Bld) 0.8 % Normal [facility] Comment on above: Order Comment: Speci men Type: BLOOD SPECIMEN Ordering Facility: [facility] Address: [address] [address] Performed By: #### 5 7021-8 #### [facility] CLIA [id number] [address] [place] [address] Lymphocytes (Bld) [#/Vol] 0.88 10*3/uL Low 1.00-4.00 [facility] Comment on above: Order Comment: Speci men Type: BLOOD SPECIMEN Ordering Facility: [facility] Address: [address] [address] Performed By: #### 5 7021-8 #### [facility] CLIA [id number] [address] [place] [address] 16342 Lymphocytes/100 WBC (Bld) 17.6 % Normal [facility] Comment on above: Order Comment: Speci men Type: BLOOD SPECIMEN Ordering Facility: [facility] Address: [address] [address] Performed By: #### 5 7021-8 #### [facility] CLIA [id number] [address] [place] [address] 35878 MCH (RBC) [Entitic mass] 29.0 pg Normal 26.0-34.0 [facility] Comment on above: Order Comment: Speci men Type: BLOOD SPECIMEN Ordering Facility: [facility] Address: [address] [address] Performed By: #### 5 7021-8 #### [facility] CLIA [id number] [address] [place] [address] 64838 MCHC (RBC) [Mass/Vol] 32.2 g/dL Normal 30.5-36.0 [facility] Comment on above: Order Comment: Speci men Type: BLOOD SPECIMEN Ordering Facility: [facility] Address: [address] [address] Performed By: #### 5 7021-8 #### [facility] CLIA [id number] [address] [place] [address] 17513 MCV (RBC) [Entitic vol] 90.2 fL Normal 80.0-100.0 [facility] Comment on above: Order Comment: Speci men Type: BLOOD SPECIMEN Ordering Facility: [facility] Address: [address] [address] Performed By: #### 5 7021-8 #### [facility] CLIA [id number] [address] [place] [address]8340 Monocytes (Bld) [#/Vol] 0.56 10*3/uL Normal <0.87 [facility] Comment on above: Order Comment: Speci men Type: BLOOD SPECIMEN Ordering Facility: [facility] Address: [address] [address] Performed By: #### 5 7021-8 #### [facility] CLIA [id number] [address] [place] [address] 42882 Monocytes/100 WBC (Bld) 11.2 % Normal [facility] Comment on above: Order Comment: Speci men Type: BLOOD SPECIMEN Ordering Facility: [facility] Address: [address] [address] Performed By: #### 5 7021-8 #### [facility] CLIA [id number] [address] [place] [address] 84137 Neutrophils (Bld) [#/Vol] 3.39 10*3/uL Normal 1.45-7.50 [facility] Comment on above: Order Comment: Speci men Type: BLOOD SPECIMEN Ordering Facility: [facility] Address: [address] [address] Performed By: #### 5 7021-8 #### [facility] CLIA [id number] [address] [place] [address] 40746 Neutrophils/100 WBC (Bld) 67.6 % Normal [facility] Comment on above: Order Comment: Speci men Type: BLOOD SPECIMEN Ordering Facility: [facility] Address: [address] [address] Performed By: #### 5 7021-8 #### [facility] CLIA [id number] [address] [place] [address] Nucleated RBC (Bld) [#/Vol] 10*3/uL Normal <0.01 [facility] Comment on above: Order Comment: Speci men Type: BLOOD SPECIMEN Ordering Facility: [facility] Address: [address] [place] [address] Performed By: #### 5 7021-8 #### [facility] CLIA [id number] [address] [place] [address] 01120 Nucleated RBC/100 WBC (Bld) [Ratio] 0.0 /100 WBC Normal [facility] Comment on above: Order Comment: Speci men Type: BLOOD SPECIMEN Ordering Facility: [facility] Address: [address] [place] [address] Performed By: #### 5 7021-8 #### [facility] CLIA [id number] [address] [place] [address] 57641 Platelet mean volume (Bld) [Entitic vol] 9.8 fL Normal 9.0-12.7 [facility] Comment on above: Order Comment: Speci men Type: BLOOD SPECIMEN Ordering Facility: [facility] Address: [address] [place] [address] Performed By: #### 5 7021-8 #### [facility] CLIA [id number] [address] [place] [address] 82848 Platelets (Bld) [#/Vol] 278 10*3/uL Normal 150-400 [facility] Comment on above: Order Comment: Speci men Type: BLOOD SPECIMEN Ordering Facility: [facility] Address: [address] [address] Performed By: #### 5 7021-8 #### [facility] CLIA [id number] [address] [place] [address] 40156 RBC (Bld) [#/Vol] 3.76 10*6/uL Low 3.90-5.20 [facility] Comment on above: Order Comment: Speci men Type: BLOOD SPECIMEN Ordering Facility: [facility] Address: [address] [address] Performed By: #### 5 7021-8 #### [facility] CLIA [id number] [address] [place] [address] 81058 WBC (Bld) [#/Vol] 5.01 10*3/uL Normal 3.70-11.00 [facility] Comment on above: Order Comment: Speci men Type: BLOOD SPECIMEN Ordering Facility: [facility] Address: [address] [address] Performed By: #### 5 7021-8 #### [facility] CLIA [id number] [address] [place] [address] 73225 Comprehensive metabolic 2000 panelon 11-27-2022 Albumin [Mass/Vol] 3.9 g/dL Normal 3.9-4.9 [facility] Comment on above: Order Comment: Speci men Type: BLOOD SPECIMEN Ordering Facility: [facility] Address: [address] [address] Performed By: #### 2 4323-8 #### [facility] CLIA [id number] [address] [place] [address] 08684 ALP [Catalytic activity/Vol] 48 U/L Normal 34-123 [facility] Comment on above: Order Comment: Speci men Type: BLOOD SPECIMEN Ordering Facility: [facility] Address: [address] [address] Performed By: #### 2 4323-8 #### [facility] CLIA [id number] [address] [place] [address] 43135 ALT [Catalytic activity/Vol] 10 U/L Normal 7-38 [facility] Comment on above: Order Comment: Speci men Type: BLOOD SPECIMEN Ordering Facility: [facility] Address: [address] [address] Performed By: #### 2 4323-8 #### [facility] CLIA [id number] [address] [place] [address] 62373 Anion gap [Moles/Vol] 8 mmol/L Low 9-18 [facility] Comment on above: Order Comment: Speci men Type: BLOOD SPECIMEN Ordering Facility: [facility] Address: [address] [address] Performed By: #### 2 4323-8 #### [facility] CLIA [id number] [address] [place] [address] 96579 AST [Catalytic activity/Vol] 14 U/L Normal 13-35 [facility] Comment on above: Order Comment: Speci men Type: BLOOD SPECIMEN Ordering Facility: [facility] Address: [address] [place] [address] Performed By: #### 2 4323-8 #### [facility] CLIA [id number] [address] [place] [address] 78158 Bilirubin [Mass/Vol] 0.4 mg/dL Normal 0.2-1.3 [facility] Comment on above: Order Comment: Speci men Type: BLOOD SPECIMEN Ordering Facility: [facility] Address: [address] [address] Performed By: #### 2 4323-8 #### [facility] CLIA [id number] [address] [place] [address] 27231 Calcium [Mass/Vol] 9.1 mg/dL Normal 8.5-10.2 [facility] Comment on above: Order Comment: Speci men Type: BLOOD SPECIMEN Ordering Facility: [facility] Address: [address] [address] Performed By: #### 2 4323-8 #### [facility] CLIA [id number] [address] [place] [address] 63071 Chloride [Moles/Vol] 104 mmol/L Normal 97-105 [facility] Comment on above: Order Comment: Speci men Type: BLOOD SPECIMEN Ordering Facility: [facility] Address: [address] [address] Performed By: #### 2 4323-8 #### [facility] CLIA [id number] [address] [place] [address] CO2 [Moles/Vol] 30 mmol/L Normal 22-30 [facility] Comment on above: Order Comment: Speci men Type: BLOOD SPECIMEN Ordering Facility: [facility] Address: [address] [place] [address] Performed By: #### 2 4323-8 #### [facility] CLIA [id number] [address] [place] [address] 06868 Creatinine [Mass/Vol] 0.97 mg/dL High 0.58-0.96 [facility] Comment on above: Order Comment: Speci men Type: BLOOD SPECIMEN Ordering Facility: [facility] Address: [address] [place] [address] Performed By: #### 2 4323-8 #### [facility] CLIA [id number] [address] [place] [address] 06600 ESTIMATED GLOMERULAR FILTRATION RATE 59 mL/min/1.73m??? Low >=60 [facility] Comment on above: Order Comment: Speci men Type: BLOOD SPECIMEN Ordering Facility: [facility] Address: [address] [place] [address] Result Comment: Shoshana mated Glomerular Filtration Rate [...] GFR. Performed By: #### 2 4323-8 #### [facility] CLIA [id number] [address] [place] [address] 23653 Glucose [Mass/Vol] 101 mg/dL High 74-99 [facility] Comment on above: Order Comment: Speci men Type: BLOOD SPECIMEN Ordering Facility: [facility] Address: [address] [place] [address] Result Comment: The [place] Diabetes Association (ADA) provides guidance for cutoff [...] Standards of Medical Care in Diabetes 2016, [place] [employer]. Diabetes Care. 2016.39(Suppl 1). Performed By: #### 2 4323-8 #### [facility] CLIA [id number] [address] [place] [address] 30140 Potassium [Moles/Vol] 4.5 mmol/L Normal 3.7-5.1 [facility] Comment on above: Order Comment: Speci men Type: BLOOD SPECIMEN Ordering Facility: [facility] Address: [address] [address] Performed By: #### 2 4323-8 #### [facility] CLIA [id number] [address] [place] [address] 25383 Protein [Mass/Vol] 6.5 g/dL Normal 6.3-8.0 [facility] Comment on above: Order Comment: Speci men Type: BLOOD SPECIMEN Ordering Facility: [facility] Address: [address] [address] Performed By: #### 2 4323-8 #### [facility] CLIA [id number] [address] [place] [address] 21822 Sodium [Moles/Vol] 142 mmol/L Normal 136-144 [facility] Comment on above: Order Comment: Speci men Type: BLOOD SPECIMEN Ordering Facility: [facility] Address: [address] [address] Performed By: #### 2 4323-8 #### [facility] CLIA [id number] [address] [place] [address] Urea nitrogen [Mass/Vol] 17 mg/dL Normal 7-21 [facility] Comment on above: Order Comment: Speci men Type: BLOOD SPECIMEN Ordering Facility: [facility] Address: [address] [place] [address] Performed By: #### 2 4323-8 #### [facility] CLIA [id number] [address] [place] [address] 59611 IMMUNOFIXATION SCREEN, SERUM on 11-27-2022 MPA RESULT No M protein is identified. Normal No M protein is identified. [facility] Comment on above: Order Comment: Speci men Type: BLOOD SPECIMEN Ordering Facility: [facility] Address: [address] [place] [address] Performed By: #### 5 7021-8 #### [facility] CLIA [id number] [address] [place] [address] 03409 STAFF REVIEW ([facility]) Reviewed by Taqueria Beck MD, Ph.D ([id number]) Normal [facility] Comment on above: Order Comment: Speci men Type: BLOOD SPECIMEN Ordering Facility: [facility] Address: [address] [place] [address] Performed By: #### 5 7021-8 #### [facility] CLIA [id number] [address] [place] [address] 65370 IMMUNOGLOBULINS GAMon 2022 IgA [Mass/Vol] 78 mg/dL Normal 70-400 [facility] Comment on above: Order Comment: Speci men Type: BLOOD SPECIMEN Ordering Facility: [facility] Address: [address] [place] [address] Performed By: #### 2 4323-8 #### [facility] CLIA [id number] [address] [place] [address] 81183 IgG [Mass/Vol] 683 mg/dL Low 700-1600 [facility] Comment on above: Order Comment: Speci men Type: BLOOD SPECIMEN Ordering Facility: [facility] Address: [address] [place] [address] Performed By: #### 2 4323-8 #### [facility] CLIA [id number] [address] [place] [address] 25559 IgM [Mass/Vol] 300 mg/dL High 40-230 [facility] Comment on above: Order Comment: Speci men Type: BLOOD SPECIMEN Ordering Facility: [facility] Address: [address] [place] [address] Performed By: #### 2 4323-8 #### [facility] CLIA [id number] [address] [place] [address] 82589 KAPPA/BOWLES,FREE,SERon 2022 Immunoglobulin light chains.kappa.free (S) [Mass/Vol] 82.2 mg/L High 3.3-19.4 [facility] Comment on above: Order Comment: Speci men Type: BLOOD SPECIMEN Ordering Facility: [facility] Address: [address] [place] [address] Result Comment: Rare ly, increased serum free light chains levels may not be detected or accurately quantified due to prozone phenomenon or in high viscosity samples using this immunoturbidimetric assay. Correlation with other laboratory results and clinical findings is recommended. The Moody Free Light Chain was performed using the Binding Site Optilite immunoturbidimetric method. Result obtained with different assay methods or kits cannot be used interchangeably. Performed By: #### 2 4323-8 #### [facility] CLIA [id number] [address] [place] [address] 04659 Immunoglobulin light chains.kappa/Immunogl obulin light chains.lambda (S) [Mass ratio] 4.11 High 0.26-1.65 [facility] Comment on above: Order Comment: Speci men Type: BLOOD SPECIMEN Ordering Facility: [facility] Address: [address] [place] [address] Performed By: #### 2 4323-8 #### [facility] CLIA [id number] [address] [place] [address] 08606 Immunoglobulin light chains.lambda.free [Mass/Vol] 20.0 mg/L Normal 5.7-26.3 [facility] Comment on above: Order Comment: Speci men Type: BLOOD SPECIMEN Ordering Facility: [facility] Address: [address] [address] Result Comment: Rare ly, increased serum free [...] interchangeably. Performed By: #### 2 4323-8 #### [facility] CLIA [id number] [address] [place] [address] 01451 PROTEIN ELECTROPHORESIS SERU M WITH BRANDON (P)on 11-27-2022 Albumin [Mass/Vol] 3.54 g/dL Normal 3.43-5.41 [facility] Comment on above: Order Comment: Speci men Type: BLOOD SPECIMEN Ordering Facility: [facility] Address: [address] [address] Performed By: #### 2 4323-8 #### [facility] CLIA [id number] [address] [place] [address] 52660 Alpha 1 globulin Elph [Mass/Vol] 0.36 g/dL Normal 0.18-0.43 [facility] Comment on above: Order Comment: Speci men Type: BLOOD SPECIMEN Ordering Facility: [facility] Address: [address] [address] Performed By: #### 2 4323-8 #### [facility] CLIA [id number] [address] [place] [address] 15996 Alpha 2 globulin Elph [Mass/Vol] 0.75 g/dL Normal 0.42-0.98 [facility] Comment on above: Order Comment: Speci men Type: BLOOD SPECIMEN Ordering Facility: [facility] Address: [address] [address] Performed By: #### 2 4323-8 #### [facility] CLIA [id number] [address] [place] [address] 63477 Beta globulin Elph [Mass/Vol] 0.59 g/dL Low 0.61-1.17 [facility] Comment on above: Order Comment: Speci men Type: BLOOD SPECIMEN Ordering Facility: [facility] Address: [address] [place] [address] Performed By: #### 2 4323-8 #### [facility] CLIA [id number] [address] [place] [address] 96903 COMMENT (SERUM PROT ELECTRO) Monoclonal Protein analysis (immunofixation) is not indicated. Normal [facility] Comment on above: Order Comment: Speci men Type: BLOOD SPECIMEN Ordering Facility: [facility] Address: [address] [place] [address] Performed By: #### 2 4323-8 #### [facility] CLIA [id number] [address] [place] [address] 23118 Gamma globulin Elph [Mass/Vol] 0.76 g/dL Normal 0.53-1.51 [facility] Comment on above: Order Comment: Speci men Type: BLOOD SPECIMEN Ordering Facility: [facility] Address: [address] [place] [address] Performed By: #### 2 4323-8 #### [facility] CLIA [id number] [address] [place] [address] 66776 M-PROTEIN LOCATION Normal [facility] Comment on above: Order Comment: Speci men Type: BLOOD SPECIMEN Ordering Facility: [facility] Address: [address] [place] [address] Result Comment: Not Applicable. Performed By: #### 2 4323-8 #### [facility] CLIA [id number] [address] [place] [address] 17055 Protein Fractions [Interp] No definitive M protein is identified on protein electrophoresis. Normal No definitive M protein is identified on protein electrophor esis. [facility] Comment on above: Order Comment: Speci men Type: BLOOD SPECIMEN Ordering Facility: [facility] Address: [address] [place] [address] Performed By: #### 2 4323-8 #### [facility] CLIA [id number] [address] [place] [address] 46545 Protein.monoclonal Elph [Mass/Vol] 0.00 g/dL Normal <=0.00 [facility] Comment on above: Order Comment: Speci men Type: BLOOD SPECIMEN Ordering Facility: [facility] Address: [address] [place] [address] Performed By: #### 2 4323-8 #### [facility] CLIA [id number] [address] [place] [address] 24031 SPE STAFF REVIEW Reviewed by Milka Bahena MD [facility] Comment on above: Order Comment: Speci men Type: BLOOD SPECIMEN Ordering Facility: [facility] Address: [address] [place] [address] Performed By: #### 2 4323-8 #### [facility] CLIA [id number] [address] [place], [place] [address] Prot SerPl-mCncon 11-27-2022 Protein [Mass/Vol] 6.0 g/dL Low 6.3-8.0 [facility] Comment on above: Order Comment: Speci men Type: BLOOD SPECIMEN Ordering Facility: [facility] Address: [address] [place] [address] Performed By: #### 2 4323-8 #### [facility] CLIA [id number] [address] [place] [address] HEAD_NECKon 09-11-[address] HEAD_NECK [...] WILLIAM DOMINGUEZ Date: 2022-09-11 17:07 Normal [facility] CT Abdomen and Pelvis W kacey Tineo 08-28-2022 IMPRESSION: 1. Stable CT of the abdomen and pelvis. Stable left adrenal gland nodule. Consider further evaluation with adrenal mass protocol CT. 2. No evidence of abdominal or pelvic lymphadenopathy. 3. Sigmoid diverticulosis without evidence of diverticulitis. Transcribe Date/Time: Aug 28 2022 5:20P Dictated by: KIESHA REYNOOS MD This examination was interpreted and the report reviewed and electronically signed by: KIESHA REYNOSO MD on Aug 28 2022 5:25PM EST Thank you for allowing us to participate in the care of your patient. Should there be any questions regarding this interpretation, please call [phone]. If you are unable to reach us at the number above, please feel free to contact [facility] at [phone]. DIVISION OF RADIOLOGY * * *Final Report* * * DATE OF EXAM: Aug 28 2022 1:36PM [facility] 0530 - CT ABD/PEL W IVCON / [...] chest CT performed will be reported separately. Circus Rider (topogram) images: No additional findings. DIVISION OF RADIOLOGY Provider, [facility] - 08/28/2022 * * *Final Report* * * DATE OF EXAM: Aug 28 2022 1:36PM [facility] 0530 - CT ABD/PEL W IVCON / [...] chest CT performed will be reported separately. Circus Rider (topogram) images: No additional findings. IMPRESSION IMPRESSION: [...] any questions regarding this interpretation, please call [phone]. If you are unable to reach us at the number above, please feel free to contact [facility] at [phone]. [facility] CT Abdomen and Pelvis W cont rast IVOrdered By: [facility] Provider on 08-28-[address] [facility] [address] Chest W contrast Rivka IMPRESSION: [...] any questions regarding this interpretation, please call [phone]. If you are unable to reach us at the number above, please feel free to contact [facility] at [phone]. DIVISION OF RADIOLOGY * * *Final Report* * * DATE OF EXAM: Aug 28 2022 1:36PM [facility] 0539 - CT CHEST W IVCON / [...] was performed concurrently and is reported separately. Circus Rider (topogram) images: No additional findings. DIVISION OF RADIOLOGY Provider, [facility] - 08/28/2022 * * *Final Report* * * DATE OF EXAM: Aug 28 2022 1:36PM [facility] 0539 - CT CHEST W IVCON / [...] was performed concurrently and is reported separately. Circus Rider (topogram) images: No additional findings. IMPRESSION IMPRESSION: [...] any questions regarding this interpretation, please call [phone]. If you are unable to reach us at the number above, please feel free to contact [facility] at [phone]. [facility] No Panel Informationon 08-28 Radiology Study observation (narrative) [facility] Covid-19 PCR (CVDTBH)on SARS-CoV-2 (COVID-19) RNA ZABRINA+probe Ql (Unsp spec) Detected Critically abnormal NOT DETECTED [facility] Comment on above: Result Comment: This test is not yet approved or cleared by the [place] FDA. When there are no FDA-approved or cleared tests available, and other criteria are met, FDA can make tests available under an emergency access mechanism called an Emergency Use Authorization (EUA). The EUA for this test is supported by the [place] of Health and Human Service's (HHS's) declaration [...] longer be used). Performed By: #### C [facility] #### [facility] [address] [place] [address] Dr. Jose David Shanks Vital Signs Date Time Vital Sign Value Performing Clinician Facility 06-19-2025 09:31-0400 Body height 166.37 cm Nathan Ball DO Work Phone: [facility] 06-19-2025 09:31-0400 Body mass index (BMI) [Ratio] 32.4 kg/m2 Nathan Ball DO Work Phone: [facility] 06-19-2025 09:31-0400 Body weight 89.81 kg Nathan Ball DO Work Phone: [facility] 06-19-2025 09:31-0400 Diastolic blood pressure 70 mm[Hg] Nathan Ball DO Work Phone: [facility] 06-19-2025 09:31-0400 Heart rate 62 /min Nathan Ball DO Work Phone: [facility] 06-19-2025 09:31-0400 Respiratory rate 14 /min Nathan Ball DO Work Phone: [facility] 06-19-2025 09:31-0400 SaO2% (BldA) [Mass fraction] 96 % Nathan Ball DO Work Phone: [facility] 06-19-2025 09:31-0400 Systolic blood pressure 146 mm[Hg] Nathan Ball DO Work Phone: [facility] 05-19-2025 15:33-0400 Body height 166.37 cm Nathan Ball DO Work Phone: [facility] 05-19-2025 15:33-0400 Body mass index (BMI) [Ratio] 31.8 kg/m2 Nathan Ball DO Work Phone: [facility] 05-19-2025 15:33-0400 Body weight 88.13 kg Nathan Ball DO Work Phone: [facility] 05-19-2025 15:33-0400 Diastolic blood pressure 74 mm[Hg] Nathan Ball DO Work Phone: [facility] 05-19-2025 15:33-0400 Heart rate 67 /min Nathan Ball DO Work Phone: [facility] 05-19-2025 15:33-0400 Respiratory rate 14 /min Nathan Ball DO Work Phone: [facility] 05-19-2025 15:33-0400 SaO2% (BldA) [Mass fraction] 96 % Nathan Ball DO Work Phone: [facility] 05-19-2025 15:33-0400 Systolic blood pressure 148 mm[Hg] Nathan Ball DO Work Phone: [facility] 03-19-2025 11:22-0400 Body height 166.37 cm Nathan Ball DO Work Phone: [facility] 03-19-2025 11:22-0400 Body mass index (BMI) [Ratio] 31.6 kg/m2 Nathan Ball DO Work Phone: [facility] 03-19-2025 11:22-0400 Body weight 87.54 kg Nathan Ball DO Work Phone: [facility] 03-19-2025 11:22-0400 Diastolic blood pressure 89 mm[Hg] Nathan Ball DO Work Phone: [facility] 03-19-2025 11:22-0400 Heart rate 66 /min Nathan Ball DO Work Phone: [facility] 03-19-2025 11:22-0400 Respiratory rate 12 /min Nathan Ball DO Work Phone: [facility] 03-19-2025 11:22-0400 SaO2% (BldA) [Mass fraction] 97 % Nathan Ball DO Work Phone: [facility] 03-19-2025 11:22-0400 Systolic blood pressure 139 mm[Hg] Nathan Ball DO Work Phone: [facility] 03-17-2025 10:42-0400 Body height 165.[address] 03-17-2025 10:42-0400 Body mass index (BMI) [Ratio] 33.28 kg/m2 [address] 03-17-2025 10:42-0400 Body weight 90.[address] 03-17-2025 10:42-0400 Diastolic blood pressure 60 mm[Hg] [address] 03-17-2025 10:42-0400 Systolic blood pressure 120 mm[Hg] [address] 03-13-2025 13:25-0400 Body height 166.37 cm Nathan Ball DO Work Phone: [facility] 03-13-2025 13:25-0400 Body mass index (BMI) [Ratio] 33 kg/m2 Nathan Ball DO Work Phone: [facility] 03-13-2025 13:25-0400 Body weight 91.28 kg Nahtan Ball DO Work Phone: [facility] 03-13-2025 13:25-0400 Diastolic blood pressure 68 mm[Hg] Nathan Ball DO Work Phone: [facility] 03-13-2025 13:25-0400 Heart rate 90 /min Nathan Ball DO Work Phone: [facility] 03-13-2025 13:25-0400 Respiratory rate 12 /min Nathan Ball DO Work Phone: [facility] 03-13-2025 13:25-0400 Systolic blood pressure 148 mm[Hg] Nathan Ball DO Work Phone: [facility] 02-25-2025 08:46-0400 Body height 165.1 cm Reyna Esparza MD Work Phone: [facility] 02-25-2025 08:46-0400 Body mass index (BMI) [Ratio] 32.45 kg/m2 Reyna Esparza MD Work Phone: [facility] 02-25-2025 08:46-0400 Body weight 88.45 kg Reyna Esparza MD Work Phone: [facility] 02-25-2025 08:46-0400 Diastolic blood pressure 59 mm[Hg] Reyna Esparza MD Work Phone: [facility] 02-25-2025 08:46-0400 Heart rate 72 /min Reyna Esparza MD Work Phone: [facility] 02-25-2025 08:46-0400 Systolic blood pressure 118 mm[Hg] Reyna Esparza MD Work Phone: [facility] 02-12-2025 10:20-0400 Diastolic blood pressure 70 mm[Hg] Nathan Ball DO Work Phone: [facility] 02-12-2025 10:20-0400 Heart rate 56 /min Nathan Ball DO Work Phone: [facility] 02-12-2025 10:20-0400 Respiratory rate 18 /min Nathan Ball DO Work Phone: [facility] 02-12-2025 10:20-0400 SaO2% (BldA) [Mass fraction] 97 % Nathan Ball DO Work Phone: [facility] 02-12-2025 10:20-0400 Systolic blood pressure 190 mm[Hg] Nathan Ball DO Work Phone: [facility] 02-12-2025 06:29-0400 Body height 165.1 cm Nathan Ball DO Work Phone: [facility] 02-12-2025 06:29-0400 Body temperature 98.3 [degF] Nathan Ball DO Work Phone: [facility] 02-12-2025 06:29-0400 Body weight 90.9 kg Nathan Ball DO Work Phone: [facility] 01-22-2025 10:20-0400 Body height 166.37 cm Nathan Ball DO Work Phone: [facility] 01-22-2025 10:20-0400 Body mass index (BMI) [Ratio] 31.9 kg/m2 Nathan Ball DO Work Phone: [facility] 01-22-2025 10:20-0400 Body weight 88.45 kg Nathan Ball DO Work Phone: [facility] 01-22-2025 10:20-0400 Diastolic blood pressure 64 mm[Hg] Nathan Ball DO Work Phone: [facility] 01-22-2025 10:20-0400 Heart rate 65 /min Nathan Ball DO Work Phone: [facility] 01-22-2025 10:20-0400 Respiratory rate 12 /min Nathan Ball DO Work Phone: [facility] 01-22-2025 10:20-0400 Systolic blood pressure 215 mm[Hg] Nathan Ball DO Work Phone: [facility] 01-12-2025 11:10-0400 Body height 165.1 cm Holden Rosado BABY NURSE-PHOTOSTATIC [employer]Y [employer]KER Work Phone: [facility] 01-12-2025 11:10-0400 Body mass index (BMI) [Ratio] 33.28 kg/m2 Holden Rosado BABY NURSE-PHOTOSTATIC [employer] Work Phone: [facility] 01-12-2025 11:10-0400 Body weight 90.72 kg Holden Rosado BABY NURSE-PHOTO[employer] Work Phone: [facility] 01-12-2025 11:10-0400 Diastolic blood pressure 60 mm[Hg] Holden Rosado BABY NURSE-PHOTOSTATIC [employer] Work Phone: [facility] 01-12-2025 11:10-0400 Heart rate 60 /min Holden Rosado BABY NURSE-PHOTOSTATIC [employer] Work Phone: [facility] 01-12-2025 11:10-0400 Systolic blood pressure 124 mm[Hg] Holden Rosado BABY NURSE-PHOTOSTATIC [employer]KER Work Phone: [facility] 12-16-2024 10:50-0500 Body height 166.37 cm Nathan Ball DO Work Phone: [facility] 12-16-2024 10:50-0500 Body mass index (BMI) [Ratio] 32 kg/m2 Nathan Ball DO Work Phone: [facility] 12-16-2024 10:50-0500 Body weight 88.59 kg Nathan Ball DO Work Phone: [facility] 12-16-2024 10:50-0500 Diastolic blood pressure 67 mm[Hg] Nathan Ball DO Work Phone: [facility] 12-16-2024 10:50-0500 Heart rate 56 /min Nathan Ball DO Work Phone: [facility] 12-16-2024 10:50-0500 SaO2% (BldA) [Mass fraction] 97 % Nathan Ball DO Work Phone: [facility] 12-16-2024 10:50-0500 Systolic blood pressure 136 mm[Hg] Nathan Ball DO Work Phone: [facility] 11-25-2024 13:55-0500 Body height 165.1 cm Reyna Esparza MD Work Phone: [facility] 11-25-2024 13:55-0500 Body mass index (BMI) [Ratio] 32.28 kg/m2 Reyna Esparza MD Work Phone: [facility] 11-25-2024 13:55-0500 Body weight 88 kg Reyna Esparza MD Work Phone: [facility] 11-25-2024 13:55-0500 Diastolic blood pressure 64 mm[Hg] Reyna Esparza MD Work Phone: [facility] 11-25-2024 13:55-0500 Heart rate 60 /min Reyna Esparza MD Work Phone: [facility] 11-25-2024 13:55-0500 Systolic blood pressure 141 mm[Hg] Reyna Esparza MD Work Phone: [facility] 11-17-2024 13:05-0500 Diastolic blood pressure 59 mm[Hg] Nathan Ball DO Work Phone: [facility] 11-17-2024 13:05-0500 Heart rate 68 /min Nathan Ball DO Work Phone: [facility] 11-17-2024 13:05-0500 Respiratory rate 16 /min Nathan Ball DO Work Phone: [facility] 11-17-2024 13:05-0500 SaO2% (BldA) [Mass fraction] 94 % Nathan Ball DO Work Phone: [facility] 11-17-2024 13:05-0500 Systolic blood pressure 163 mm[Hg] Nathan Ball DO Work Phone: [facility] 11-17-2024 10:05-0500 Body height 166.37 cm Nathan Ball DO Work Phone: [facility] 11-17-2024 10:05-0500 Body weight 89.35 kg Nathan Ball DO Work Phone: [facility] 10-08-2024 10:40-0500 Body height 165.1 cm Edinson Perry DO Work Phone: [facility] 10-08-2024 10:40-0500 Body mass index (BMI) [Ratio] 33.12 kg/m2 Edinson Perry DO Work Phone: [facility] 10-08-2024 10:40-0500 Body weight 90.27 kg Edinson Perry DO Work Phone: [facility] 10-08-2024 10:40-0500 Diastolic blood pressure 60 mm[Hg] Edinson Perry DO Work Phone: [facility] 10-08-2024 10:40-0500 Heart rate 78 /min Edinson Perry DO Work Phone: [facility] 10-08-2024 10:40-0500 Systolic blood pressure 124 mm[Hg] Edinson Perry DO Work Phone: [facility] 09-11-2024 10:19-0500 Body height 165.1 cm [facility] 09-11-2024 10:19-0500 Body mass index (BMI) [Ratio] 32.3 kg/m2 [facility] 09-11-2024 10:19-0500 Body weight 88.13 kg [facility] 09-11-2024 10:19-0500 Diastolic blood pressure 54 mm[Hg] [facility] 09-11-2024 10:19-0500 Heart rate 63 /min [facility] 09-11-2024 10:19-0500 SaO2% (BldA) [Mass fraction] 97 % [facility] 09-11-2024 10:19-0500 Systolic blood pressure 118 mm[Hg] [facility] 06-03-2024 10:54-0400 Body height 165.1 cm DO Nathan Ball Work Phone: [facility] 06-03-2024 10:54-0400 Body mass index (BMI) [Ratio] 26.8 kg/m2 DO Nathan Ball Work Phone: [facility] 06-03-2024 10:54-0400 Body weight 73.02 kg DO Nathan Ball Work Phone: [facility] 06-03-2024 10:54-0400 Diastolic blood pressure 89 mm[Hg] DO Nathan Ball Work Phone: [facility] 06-03-2024 10:54-0400 Heart rate 56 /min DO Nathan Ball Work Phone: [facility] 06-03-2024 10:54-0400 Respiratory rate 12 /min DO Nathan Ball Work Phone: [facility] 06-03-2024 10:54-0400 Systolic blood pressure 139 mm[Hg] DO Nathan Ball Work Phone: [facility] 04-21-2024 10:21-0400 Body mass index (BMI) [Ratio] 32.98 kg/m2 Holden Rosado BABY NURSE-PHOTOSTATIC [employer]KER Work Phone: [facility] 04-21-2024 10:21-0400 Body weight 89.9 kg Holden Rosado BABY NURSE-PHOTOSTATIC [employer]ER Work Phone: [facility] 04-21-2024 10:21-0400 Diastolic blood pressure 70 mm[Hg] Holden Rosado BABY NURSE-PHOTOSTATIC COP[employer] MAKER Work Phone: [facility] 04-21-2024 10:21-0400 Heart rate 60 /min Holden Rosado BABY NURSE-PHOTOSTATIC [employer]KER Work Phone: [facility] 04-21-2024 10:21-0400 Systolic blood pressure 132 mm[Hg] Holden Rosado BABY NURSE-PHOTOSTATIC COP[employer]KER Work Phone: [facility] 03-12-2024 09:27-0400 Diastolic blood pressure 66 mm[Hg] [address] 03-12-2024 09:27-0400 Heart rate 62 /min [address] 03-12-2024 09:27-0400 Systolic blood pressure 114 mm[Hg] [address] 03-05-2024 11:46-0400 Body height 165.1 cm Holden Rosado BABY NURSE-PHOTOSTATIC COP[employer] MAKER Work Phone: [facility] 03-05-2024 11:46-0400 Body mass index (BMI) [Ratio] 32.62 kg/m2 Holden Rosado BABY NURSE-PHOTOSTATIC [employer] MAKER Work Phone: [facility] 03-05-2024 11:46-0400 Body weight 88.91 kg Holden Rosado BABY NURSE-PHOTOSTATIC [employer]KER Work Phone: [facility] 03-05-2024 11:46-0400 Diastolic blood pressure 68 mm[Hg] Holden Rosado BABY NURSE-PHOTOSTATIC [employer]KER Work Phone: [facility] 03-05-2024 11:46-0400 Heart rate 62 /min Holden Rosado BABY NURSE-PHOTOSTATIC [employer]KER Work Phone: [facility] 03-05-2024 11:46-0400 Systolic blood pressure 120 mm[Hg] Holden Rosado BABY NURSE-PHOTOSTATIC COP[employer] MAKER Work Phone: [facility] 02-27-2024 09:53-0400 Body height 165.1 cm DO Ntahan Ball Work Phone: [facility] 02-27-2024 09:53-0400 Body mass index (BMI) [Ratio] 31.9 kg/m2 DO Nathan Ball Work Phone: [facility] 02-27-2024 09:53-0400 Body weight 87.08 kg DO Nathan Ball Work Phone: [facility] 02-27-2024 09:53-0400 Diastolic blood pressure 72 mm[Hg] DO Nathan Ball Work Phone: [facility] 02-27-2024 09:53-0400 Heart rate 62 /min DO Nathan Ball Work Phone: [facility] 02-27-2024 09:53-0400 SaO2% (BldA) [Mass fraction] 97 % DO Nathan Ball Work Phone: [facility] 02-27-2024 09:53-0400 Systolic blood pressure 132 mm[Hg] DO Nathan Ball Work Phone: [facility] 02-13-2024 10:30-0400 Body height 165.1 cm [facility] 02-13-2024 10:30-0400 Body mass index (BMI) [Ratio] 32.8 kg/m2 [facility] 02-13-2024 10:30-0400 Body weight 89.35 kg [facility] 02-13-2024 10:30-0400 Diastolic blood pressure 60 mm[Hg] [facility] 02-13-2024 10:30-0400 Heart rate 56 /min [facility] 02-13-2024 10:30-0400 SaO2% (BldA) [Mass fraction] 98 % [facility] 02-13-2024 10:30-0400 Systolic blood pressure 128 mm[Hg] [facility] 02-01-2024 11:01-0400 Body height 165.1 cm [facility] 02-01-2024 11:01-0400 Body mass index (BMI) [Ratio] 27.3 kg/m2 [facility] 02-01-2024 11:01-0400 Body weight 74.44 kg [facility] 02-01-2024 11:01-0400 Diastolic blood pressure 72 mm[Hg] [facility] 02-01-2024 11:01-0400 Heart rate 49 /min [facility] 02-01-2024 11:01-0400 Respiratory rate 12 /min [facility] 02-01-2024 11:01-0400 Systolic blood pressure 131 mm[Hg] [facility] 11-02-2023 11:00-0500 Body height 165.1 cm Nathan Ball Other [facility] [email or web address] Other 11-02-2023 11:00-0500 Body mass index (BMI) [Ratio] 31.78 kg/m2 Nathan Ball Other [facility] [email or web address] Other 11-02-2023 11:00-0500 Body weight 86.64 kg Nathan Ball Other [facility] [email or web address] Other 11-02-2023 11:00-0500 Diastolic blood pressure 80 mm[Hg] Nathan Ball Other [facility] [email or web address] Other 11-02-2023 11:00-0500 Respiratory rate 16 /min Nathan Ball Other [facility] [email or web address] Other 11-02-2023 11:00-0500 Systolic blood pressure 130 mm[Hg] Nathan Ball Other [facility] [email or web address] Other 10-02-2023 09:45-0500 Body height 165.1 cm Nathan Ball Other [employer] Other 10-02-2023 09:45-0500 Body mass index (BMI) [Ratio] 31.61 kg/m2 Nathan Ball Other [employer] Other 10-02-2023 09:45-0500 Body weight 86.18 kg Nathan Ball Other [employer] Other 10-02-2023 09:45-0500 Diastolic blood pressure 74 mm[Hg] Nathan Ball Other [employer] Other 10-02-2023 09:45-0500 Respiratory rate 12 /min Nathan Ball Other [employer] Other 10-02-2023 09:45-0500 Systolic blood pressure 144 mm[Hg] Nathan Ball Other [employer] Other 06-08-2023 11:15-0400 Body height 165.1 cm Nathan Ball Other [employer] Other 06-08-2023 11:15-0400 Body mass index (BMI) [Ratio] 32.95 kg/m2 Nathan Ball Other [employer] Other 06-08-2023 11:15-0400 Body weight 89.81 kg Nathan Ball Other [employer] Other 06-08-2023 11:15-0400 Diastolic blood pressure 62 mm[Hg] Nathan Ball Other [employer] Other 06-08-2023 11:15-0400 Respiratory rate 12 /min Nathan Ball Other [employer] Other 06-08-2023 11:15-0400 Systolic blood pressure 138 mm[Hg] Nathan Ball Other [employer] Other 06-04-2023 13:51-0400 Body temperature 97.7 [degF] Luis Mckenzie MD Work Phone: [facility] 06-04-2023 13:51-0400 Body weight 91.99 kg Luis Mckenzie MD Work Phone: [facility] 06-04-2023 13:51-0400 Diastolic blood pressure 58 mm[Hg] Luis Mckenzie MD Work Phone: [facility] 06-04-2023 13:51-0400 Heart rate 56 /min Luis Mckenzie MD Work Phone: [facility] 06-04-2023 13:51-0400 Respiratory rate 18 /min Luis Mckenzie MD Work Phone: [facility] 06-04-2023 13:51-0400 SaO2% (BldA) [Mass fraction] 98 % Luis Mckenzie MD Work Phone: [facility] 06-04-2023 13:51-0400 Systolic blood pressure 155 mm[Hg] Luis Mckenzie MD Work Phone: [facility] 05-25-2023 11:15-0400 Body height 165.1 cm Nathan Ball Other [employer] Other 05-25-2023 11:15-0400 Body mass index (BMI) [Ratio] 32.86 kg/m2 Nathan Ball Other [employer] Other 05-25-2023 11:15-0400 Body weight 89.59 kg Nathan Ball Other [employer] Other 05-25-2023 11:15-0400 Diastolic blood pressure 68 mm[Hg] Nathan Ball Other [employer] Other 05-25-2023 11:15-0400 Respiratory rate 16 /min Nathan Ball Other [facility] [email or web address] Other 05-25-2023 11:15-0400 Systolic blood pressure 142 mm[Hg] Nathan Ball Other [facility] [email or web address] Other 05-18-2023 15:30-0400 Body temperature 97.7 [degF] DO Nathan Ball Work Phone: [facility] 05-18-2023 15:30-0400 Diastolic blood pressure 71 mm[Hg] DO Nathan Ball Work Phone: [facility] 05-18-2023 15:30-0400 Heart rate 62 /min DO Nathan Ball Work Phone: [facility] 05-18-2023 15:30-0400 Respiratory rate 16 /min DO Nathan Ball Work Phone: [facility] 05-18-2023 15:30-0400 SaO2% (BldA) [Mass fraction] 95 % DO Nathan Ball Work Phone: [facility] 05-18-2023 15:30-0400 Systolic blood pressure 145 mm[Hg] DO Nathan Ball Work Phone: [facility] 05-18-2023 05:39-0400 Body weight 88.1 kg DO Nathan Ball Work Phone: [facility] 05-17-2023 20:00-0400 Inhaled oxygen flow rate 1.5 L/min DO Nathan Ball Work Phone: [facility] 05-17-2023 15:54-0400 Body height 172.72 cm DO Nathan Ball Work Phone: [facility] 05-16-2023 11:30-0400 Body height 165.1 cm Nathan Ball Other [facility] [email or web address] Other 05-16-2023 11:30-0400 Body mass index (BMI) [Ratio] 33.28 kg/m2 Nathan Ball Other [employer] Other 05-16-2023 11:30-0400 Body weight 90.72 kg Nathan Ball Other [employer] Other 05-16-2023 11:30-0400 Diastolic blood pressure 69 mm[Hg] Nathan Ball Other [employer] Other 05-16-2023 11:30-0400 Respiratory rate 16 /min Nathan Ball Other [employer] Other 05-16-2023 11:30-0400 Systolic blood pressure 192 mm[Hg] Nathan Ball Other [employer] Other 05-09-2023 11:15-0400 Body height 165.1 cm Nathan Ball Other [employer] Other 05-09-2023 11:15-0400 Body mass index (BMI) [Ratio] 32.75 kg/m2 Nathan Ball Other [employer] Other 05-09-2023 11:15-0400 Body weight 89.27 kg Nathan Ball Other [employer] Other 05-09-2023 11:15-0400 Diastolic blood pressure 62 mm[Hg] Nathan Ball Other [employer] Other 05-09-2023 11:15-0400 Respiratory rate 16 /min Nathan Ball Other [employer] Other 05-09-2023 11:15-0400 SaO2% (BldA) [Mass fraction] 98 % Nathan Ball Other [facility] Other 05-09-2023 11:15-0400 Systolic blood pressure 189 mm[Hg] Nathan Ball Other [facility] Other 04-26-2023 11:30-0400 Body height 165.1 cm Nathan Ball Other [employer] Other 04-26-2023 11:30-0400 Body mass index (BMI) [Ratio] 32.53 kg/m2 Nathan Ball Other [employer] Other 04-26-2023 11:30-0400 Body weight 88.68 kg Nathan Ball Other [employer] Other 04-26-2023 11:30-0400 Diastolic blood pressure 80 mm[Hg] Nathan Ball Other [employer] Other 04-26-2023 11:30-0400 Respiratory rate 16 /min Nathan Ball Other [facility] Other 04-26-2023 11:30-0400 Systolic blood pressure 136 mm[Hg] Nathan Ball Other [facility] Other 04-18-2023 09:45-0400 Body height 165.1 cm Nathan Ball Other [facility] Other 04-18-2023 09:45-0400 Body mass index (BMI) [Ratio] 33.28 kg/m2 Nathan Ball Other [employer] Other 04-18-2023 09:45-0400 Body weight 90.72 kg Nathan Ball Other [facility] Other 04-18-2023 09:45-0400 Diastolic blood pressure 76 mm[Hg] Nathan Ball Other [employer] Other 04-18-2023 09:45-0400 Respiratory rate 20 /min Nathan Ball Other [facility] Other 04-18-2023 09:45-0400 SaO2% (BldA) [Mass fraction] 98 % Nathan Ball Other [employer] Other 04-18-2023 09:45-0400 Systolic blood pressure 132 mm[Hg] Nathan Ball Other [employer] Other 03-15-2023 10:45-0400 Body height 165.1 cm Nathan Ball Other [employer] Other 03-15-2023 10:45-0400 Body mass index (BMI) [Ratio] 31.95 kg/m2 Nathan Ball Other [employer] Other 03-15-2023 10:45-0400 Body weight 87.09 kg Nathan Ball Other [employer] Other 03-15-2023 10:45-0400 Diastolic blood pressure 77 mm[Hg] Nathan Ball Other [facility] Other 03-15-2023 10:45-0400 Respiratory rate 16 /min Nathan Ball Other [facility] Other 03-15-2023 10:45-0400 Systolic blood pressure 151 mm[Hg] Nathan Ball Other [employer] Other 03-09-2023 17:00-0400 Body temperature 97.9 [degF] DO Nathan Ball Work Phone: [facility] 03-09-2023 17:00-0400 Diastolic blood pressure 72 mm[Hg] DO Nathan Ball Work Phone: [facility] 03-09-2023 17:00-0400 Heart rate 54 /min DO Nathan Ball Work Phone: [facility] 03-09-2023 17:00-0400 Respiratory rate 16 /min DO Nathan Ball Work Phone: [facility] 03-09-2023 17:00-0400 SaO2% (BldA) [Mass fraction] 96 % DO Nathan Ball Work Phone: [facility] 03-09-2023 17:00-0400 Systolic blood pressure 140 mm[Hg] DO Nathan Ball Work Phone: [facility] 03-09-2023 08:11-0400 Body height 165.1 cm DO Nathan Ball Work Phone: [facility] 03-09-2023 08:11-0400 Body weight 90 kg DO Nathan Ball Work Phone: [facility] 03-07-2023 10:14-0400 Diastolic blood pressure 70 mm[Hg] Nathan E Ball Work Phone: [facility] [employer] [facility] DO Work Phone: 03-07-2023 10:14-0400 Systolic blood pressure 138 mm[Hg] Nathan E Ball Work Phone: [facility] [employer] [facility] DO Work Phone: 03-07-2023 10:04-0400 Body height 165.1 cm Nathan E Ball Work Phone: [facility] [facility] DO Work Phone: 03-07-2023 10:04-0400 Body mass index (BMI) [Ratio] 33.95 kg/m2 Nathan E Ball Work Phone: [facility] [facility] DO Work Phone: 03-07-2023 10:04-0400 Body surface area Derived from formula 1.99 m2 Nathan E Ball Work Phone: [facility] [facility] DO Work Phone: 03-07-2023 10:04-0400 Body weight 92.53 kg Nathan E Ball Work Phone: [facility] [place] [address] DO Work Phone: 03-07-2023 10:04-0400 Diastolic blood pressure 72 mm[Hg] Nathan E Ball Work Phone: [facility] [place] [address] DO Work Phone: 03-07-2023 10:04-0400 Heart rate 45 /min Nathan E Ball Work Phone: [facility] [employer] [facility] DO Work Phone: 03-07-2023 10:04-0400 Systolic blood pressure 144 mm[Hg] Nathan E Ball Work Phone: [facility] [employer] [address] DO Work Phone: 02-14-2023 11:15-0400 Body height 165.1 cm Nathan Ball Other [employer] Other 02-14-2023 11:15-0400 Body mass index (BMI) [Ratio] 32.61 kg/m2 Nathan Ball Other [employer] Other 02-14-2023 11:15-0400 Body weight 88.91 kg Nathan Ball Other [employer] Other 02-14-2023 11:15-0400 Diastolic blood pressure 72 mm[Hg] Nathan Ball Other [employer] Other 02-14-2023 11:15-0400 Respiratory rate 12 /min Nathan Ball Other [employer] Other 02-14-2023 11:15-0400 Systolic blood pressure 204 mm[Hg] Nathan Ball Other [facility] Other 02-02-2023 12:15-0400 Body height 165.1 cm Nathan Ball Other [employer] Other 02-02-2023 12:15-0400 Body mass index (BMI) [Ratio] 32.78 kg/m2 Nathan Ball Other [facility] Other 02-02-2023 12:15-0400 Body weight 89.36 kg Nathan Ball Other [facility] Other 02-02-2023 12:15-0400 Diastolic blood pressure 70 mm[Hg] Nathan Ball Other [facility] Other 02-02-2023 12:15-0400 Respiratory rate 12 /min Nathan Ball Other [facility] Other 02-02-2023 12:15-0400 Systolic blood pressure 201 mm[Hg] Nathan Ball Other [facility] Other 12-14-2022 10:00-0500 Body height 165.1 cm Nathan Ball Other [facility] Other 12-14-2022 10:00-0500 Body mass index (BMI) [Ratio] 32.53 kg/m2 Nathan Ball Other [facility] Other 12-14-2022 10:00-0500 Body weight 88.68 kg Nathan Ball Other [facility] Other 12-14-2022 10:00-0500 Diastolic blood pressure 70 mm[Hg] Nathan Ball Other [facility] Other 12-14-2022 10:00-0500 Respiratory rate 12 /min Nathan Ball Other [facility] Other 12-14-2022 10:00-0500 Systolic blood pressure 140 mm[Hg] Nathan Ball Other [facility] Other 12-04-2022 13:25-0500 Body height 166.4 cm Luis Mckenzie MD Work Phone: [facility] 12-04-2022 13:25-0500 Body temperature 97.11 [degF] Luis Mckenzie MD Work Phone: [facility] 12-04-2022 13:25-0500 Body weight 90.36 kg Luis Mckenzie MD Work Phone: [facility] 12-04-2022 13:25-0500 Diastolic blood pressure 54 mm[Hg] Luis Mckenzie MD Work Phone: [facility] 12-04-2022 13:25-0500 Heart rate 63 /min Luis Mckenzie MD Work Phone: [facility] 12-04-2022 13:25-0500 Respiratory rate 16 /min Luis Mckenzie MD Work Phone: [facility] 12-04-2022 13:25-0500 SaO2% (BldA) [Mass fraction] 96 % Luis Mckenzie MD Work Phone: [facility] 12-04-2022 13:25-0500 Systolic blood pressure 167 mm[Hg] Luis Mckenzie MD Work Phone: [facility] 11-14-2022 15:00-0500 Body height 165.1 cm Nathan Ball Other [employer] Other 11-14-2022 15:00-0500 Body mass index (BMI) [Ratio] 32.53 kg/m2 Nathan Ball Other [facility] Other 11-14-2022 15:00-0500 Body weight 88.68 kg Nathan Ball Other [facility] Other 11-14-2022 15:00-0500 Diastolic blood pressure 72 mm[Hg] Nathan Ball Other [facility] Other 11-14-2022 15:00-0500 Respiratory rate 12 /min Nathan Ball Other [facility] Other 11-14-2022 15:00-0500 Systolic blood pressure 130 mm[Hg] Nathan Ball Other [facility] Other 05-29-2022 10:06-0400 Body height 166.4 cm Luis Mckenzie MD Work Phone: [facility] 05-29-2022 10:06-0400 Body temperature 97.59 [degF] Luis Mckenzie MD Work Phone: [facility] 05-29-2022 10:06-0400 Body weight 89.72 kg Luis Mckenzie MD Work Phone: [facility] 05-29-2022 10:06-0400 Diastolic blood pressure 50 mm[Hg] Luis Mckenzie MD Work Phone: [facility] 05-29-2022 10:06-0400 Heart rate 50 /min Luis Mckenzie MD Work Phone: [facility] 05-29-2022 10:06-0400 Respiratory rate 16 /min Luis Mckenzie MD Work Phone: [facility] 05-29-2022 10:06-0400 SaO2% (BldA) [Mass fraction] 96 % Luis Mckenzie MD Work Phone: [facility] 05-29-2022 10:06-0400 Systolic blood pressure 155 mm[Hg] Luis Mckenzie MD Work Phone: [facility] Encounters Encounter Date Encounter Type Care Provider Facility Start: 06-19-2025 End: 06-19-2025 ambulatory Nathan Isabela DO Work Phone: [facility] Work Phone: Start: 06-19-2025 End: 06-19-2025 Patient encounter procedure Nathan Ball DO -[facility] Work Phone: Start: 05-19-2025 End: 05-19-2025 ambulatory Nathan Ball DO Work Phone: [facility] Work Phone: Start: 05-19-2025 End: 05-19-2025 Patient encounter procedure Nathan Ball DO -[facility] Work Phone: Start: 03-19-2025 End: 03-19-2025 ambulatory Nathan Hathaway DO Work Phone: [facility] Work Phone: Start: 03-19-2025 End: 03-19-2025 Patient encounter procedure Nathan Ball DO Work Phone: [facility] Work Phone: Start: 03-18-2025 Non-patient / Non-visit Cadence in Isabela DO Work Phone: [facility] Work Phone: Start: 03-17-2025 End: 03-17-2025 Subsequent hospital visit by physician Laura Blair Echo/Vasc Room 2 [facility] Comment on above: Essential hypertensi on; Palpitations Start: 03-17-2025 End: 03-17-2025 ambulatory [facility] Start: 03-13-2025 End: 03-13-2025 Patient encounter procedure Nathan Ball DO Work Phone: [facility] Work Phone: Start: 02-25-2025 End: [...] 02-12-2025 Emergency department patient visit Nathan Hathaway Facility:[facility] Start: 02-10-2025 End: 02-10-2025 Clinisync Result Encounter Reyna Esparza MD Work Phone: [facility] External Department Unsolicited Start: 02-10-2025 End: 02-10-2025 Clinisync Result Encounter Reyna Esparza MD Work Phone: [facility] External Department Unsolicited Start: 01-26-2025 End: 01-26-2025 ambulatory [facility] Start: 01-23-2025 Non-patient / Non-visit Benjam in Isabela DO Work Phone: [facility] Work Phone: Start: 01-22-2025 End: 01-22-2025 ambulatory Nathan Hathaway DO Work Phone: [facility] Work Phone: Start: 01-22-2025 End: 01-22-2025 Patient encounter procedure Nathan Hathaway DO Work Phone[facility] Work Phone: Start: 01-12-2025 End: 01-12-2025 Office outpatient visit 25 minutes [facility] BABY NURSE-PHOTOSTATIC COPY MAKER Work Phone: [facility] Comment on above: BMI 33.0-33.9,adult (Primary Dx); Essential hypertension; Palpitations; ASHD (arteriosclerotic heart disease); Mixed hyperlipidemia Start: 01-12-2025 End: 01-12-2025 ambulatory [facility] Start: 12-29-2024 End: 12-29-2024 ambulatory Nathan Ball DO Work Phone: [facility] Work Phone: Start: 12-29-2024 End: 12-29-2024 Patient encounter procedure Nathan Ball DO Work Phone: [facility] Work Phone: Start: 12-18-2024 Non-patient / Non-visit Benjam in Ball DO Work Phone: [facility] Work Phone: Start: 12-16-2024 End: 12-16-2024 Patient encounter procedure Nathan Hathaway DO Work Phone: [facility] Work Phone: Start: 11-25-2024 End: 11-25-2024 Bamboo [...] 11-19-2024 ambulatory Nathan Hathaway DO Work Phone: [facility] Work Phone: Start: 11-19-2024 Non-patient / Non-visit Benjam in Ball DO Work Phone: [facility] Work Phone: Start: 11-17-2024 End: 11-17-2024 Admission to same day surgery center Nathan Hathaway DO Work Phone: [facility] [place] Work Phone: Start: 11-17-2024 End: 11-17-2024 ambulatory Nathan Hathaway DO Work Phone: [facility] Work Phone: Start: 10-09-2024 End: 10-09-2024 Refnawaf Braxton COT Work Phone: [facility] Start: 10-08-2024 End: 10-08-2024 Office outpatient visit 25 minutes Edinson Bledsoe [place] DO Work Phone: [facility] Comment on above: ASHD (arteriosclerot ic heart disease); Essential hypertension; BMI 33.0-33.9,adult; Former smoker; S/P PTCA (percutaneous transluminal coronary angioplasty); Mixed hyperlipidemia; Coronary arteriosclerosis after percutaneous transluminal coronary angioplasty (PTCA) Start: 10-08-2024 End: 10-08-2024 ambulatory [facility] Start: 09-12-2024 Non-patient / Non-visit Cadence in Isabela DO Work Phone: [facility] Work Phone: Start: 09-11-2024 End: 09-11-2024 ambulatory [facility] Work Phone: Start: 09-11-2024 End: 09-11-2024 Patient encounter procedure [facility] Work Phone: Start: 09-04-2024 Non-patient / Non-visit [facility] Work Phone: Start: 07-16-2024 End: 07-16-2024 ambulatory [facility] Work Phone: Start: 07-16-2024 End: 07-16-2024 Patient encounter procedure [facility] Work Phone: Start: 06-03-2024 End: 06-03-2024 ambulatory DO Nathan Hathaway Work Phone: [facility] Work Phone: Start: 06-03-2024 End: 06-03-2024 Patient encounter procedure DO Nathan Hathaway Work Phone: [facility] Work Phone: Start: 05-20-2024 Non-patient / Non-visit DO Natalio Hathaway Work Phone: [facility] Work Phone: Start: 04-30-2024 Non-patient / Non-visit DO Natalio Hathaway Work Phone: [facility] Work Phone: Start: 04-28-2024 End: 04-28-2024 ambulatory FERCHO TSE Not Available Start: 04-21-2024 End: 04-21-2024 Office outpatient visit 15 minutes Holden Rosado BABY NURSE-PHOTOSTATIC COPY MAKER Work Phone: [facility] Comment on above: Essential hypertensi on (Primary Dx); ASHD (arteriosclerotic heart disease); Mixed hyperlipidemia; BMI 32.0-32.9,adult Start: 04-21-2024 End: 04-21-2024 ambulatory [facility] Start: 03-12-2024 End: 03-12-2024 Subsequent hospital visit by physician [facility] Comment on above: ASHD (arteriosclerot ic heart disease) Start: 03-05-2024 End: 03-05-2024 Patient encounter procedure DO Nathan Hathaway Work Phone: [facility] [place] Work Phone: Start: 03-05-2024 End: 03-05-2024 ambulatory DO Nathan Hathaway Work Phone: [facility] Work Phone: Start: 03-05-2024 End: 03-05-2024 Office outpatient visit 25 minutes Holden Rosado BABY NURSE-PHOTOSTATIC COPY MAKER Work Phone: [facility] Comment on above: ASHD (arteriosclerot ic heart disease) (Primary Dx); Essential hypertension; Mixed hyperlipidemia; BMI 32.0-32.9,adult Start: 02-27-2024 End: 02-27-2024 Patient encounter procedure DO Nathan Hathaway Work Phone: [facility] Work Phone: Start: 02-21-2024 Non-patient / Non-visit DO Natalio Hathaway Work Phone: [facility] Work Phone: Start: 02-20-2024 Non-patient / Non-visit DO Natalio Hathaway Work Phone: [facility] Work Phone: Start: 02-19-2024 Non-patient / Non-visit DO Natalio Hathaway Work Phone: [facility] Work Phone: Start: 02-18-2024 Non-patient / Non-visit DO Natalio Hathaway Work Phone: [facility] Work Phone: Start: 02-13-2024 End: 02-13-2024 ambulatory [facility] Work Phone: Start: 02-13-2024 End: 02-13-2024 Patient encounter procedure [facility] Work Phone: Start: 02-02-2024 Non-patient / Non-visit [facility] Work Phone: Start: 02-01-2024 End: 02-01-2024 ambulatory [facility] Work Phone: Start: 02-01-2024 End: 02-01-2024 Patient encounter procedure [facility] Work Phone: Start: 01-04-2024 End: 01-04-2024 ambulatory Nathan Hathaway Other [employer] Other Start: 01-04-2024 Telephone encounter Nathan Ball [facility] Start: 12-18-2023 Non-patient / Non-visit [facility] Work Phone: Start: 11-27-2023 End: 11-27-2023 ambulatory Nathan Ball Other [employer] Other Start: 11-27-2023 Telephone encounter Nathan Ball [facility] Start: 11-05-2023 End: 11-05-2023 ambulatory NATHAN E BALL Facility:[facility] Start: 11-02-2023 End: 11-02-2023 ambulatory Nathan Ball Other [employer] Other Start: 11-02-2023 Office outpatient vi sit 25 minutes Nathan Ball [facility] Start: 10-02-2023 End: 10-02-2023 ambulatory Nathan Ball Other [employer] Other Start: 10-02-2023 Office outpatient vi sit 25 minutes Nathan Ball [facility] Start: 09-26-2023 End: 09-26-2023 ambulatory Nathan Ball Other [employer] Other Start: 09-26-2023 Telephone encounter Nathan Ball [facility] Start: 09-21-2023 End: 09-21-2023 ambulatory Nathan Ball Other [employer] Other Start: 09-21-2023 Telephone encounter Nathan Ball [facility] Start: 2023 End: 2023 ambulatory Nathan Ball Other [employer] Other Start: 2023 Telephone encounter Nathan Ball [facility] Start: 09-13-2023 End: 09-13-2023 ambulatory Nathan Ball Other [employer] Other Start: 09-13-2023 Telephone encounter Nathan Ball [facility] Start: 09-11-2023 End: 09-11-2023 ambulatory Nathan Ball Other [employer] Other Start: 09-11-2023 Office outpatient vi sit 15 minutes Nathan Ball [facility] Start: 08-16-2023 End: 08-16-2023 ambulatory Nathan Ball Other [employer] Other Start: 08-16-2023 Telephone encounter Nathan Ball [facility] Start: 07-31-2023 End: 07-31-2023 ambulatory Nathan Ball Other [employer] Other Start: 07-31-2023 Telephone encounter Nathan Ball [facility] Start: 07-30-2023 End: 07-30-2023 ambulatory Nathan Ball Other [employer] Other Start: 07-30-2023 Telephone encounter Nathan Ball [facility] Start: 07-19-2023 End: 07-19-2023 ambulatory Nathan Ball Other [employer] Other Start: 07-19-2023 Telephone encounter Nathan Ball [facility] Start: 07-18-2023 End: 07-18-2023 ambulatory Nathan Ball Other [employer] Other Start: 07-18-2023 Telephone encounter Nathan Ball [facility] Start: 07-17-2023 End: 07-17-2023 ambulatory Nathan Ball Other [employer] Other Start: 07-17-2023 Nursing evaluation o f patient and report Nathan Ball [facility] Start: 06-28-2023 End: 06-28-2023 ambulatory Nathan Ball Other [employer] Other Start: 06-28-2023 Telephone encounter Nathan Ball [facility] Start: 06-25-2023 End: 06-25-2023 ambulatory Nathan Hathaway Other [employer] Other Start: 06-25-2023 Telephone encounter Nathan Hathaway FP [facility] Start: 06-21-2023 End: 06-21-2023 ambulatory Nathan Hathaway Other [employer] Other Start: 06-21-2023 Telephone encounter Nathan Hathaway FP G [facility] Start: 06-19-2023 End: 06-19-2023 ambulatory Nathan Hathaway Other [employer] Other Start: 06-19-2023 Telephone encounter Nathan Hathaway FP G [facility] Start: 06-18-2023 End: 06-18-2023 ambulatory Nathan Hathaway Other [employer] Other Start: 06-18-2023 Telephone encounter Nathan Hathaway FP G [facility] Start: 06-15-2023 End: 06-15-2023 ambulatory Nathan Hathwaay Other [employer] Other Start: 06-15-2023 Telephone encounter Nathan Hathaway FP G [facility] Start: 06-08-2023 End: 06-08-2023 ambulatory Nathan Hathaway Other [employer] Other Start: 06-08-2023 Office outpatient vi sit 15 minutes Nathan Hathaway [facility] Start: 06-06-2023 Telephone encounter Juan Rico Hematology/Oncology Comment on above: Results Start: 06-04-2023 End: 06-04-2023 ambulatory Luis Mckenzie MD Work Phone: [facility] Other Comment on above: Abnormal SPEP (Prima ry Dx); Anemia, unspecified type; Neuropathy - (NOS); Heart disease Start: 06-04-2023 End: 06-04-2023 Patient encounter procedure Luis Mckenzie MD Work Phone: [place] Start: 06-04-2023 Telephone encounter Nathan Hathaway [facility] Start: 06-01-2023 End: 06-01-2023 ambulatory Nathan Isabela Other [employer] Other Start: 06-01-2023 Telephone encounter Nathan Hathaway [facility] Start: 05-28-2023 End: 05-28-2023 ambulatory NATHAN HATHAWAY Facility:[facility] Start: 05-25-2023 End: 05-25-2023 ambulatory Nathan Hathaway Other [employer] Other Start: 05-25-2023 Transitional care julito stark srvc 14 day discharge Nathan Hathaway [facility] Start: 05-17-2023 End: 05-18-2023 Evaluation and management of inpatient DO Nathan Ball Work Phone: [facility] [place] [facility] Work Phone: Start: 05-17-2023 End: 05-18-2023 observation encounter DO Nathan Ball Work Phone: [facility] Work Phone: Start: 05-16-2023 End: 05-16-2023 ambulatory Nathan Hathaway Other [employer] Other Start: 05-16-2023 Office outpatient vi sit 25 minutes Nathan Ball [facility] Start: 05-09-2023 End: 05-09-2023 ambulatory Nathan Isabela Other [employer] Other Start: 05-09-2023 Office outpatient vi sit 25 minutes Nathan Ball [facility] Start: 05-09-2023 Telephone encounter Nathan E Ball Work Phone: [facility] [address] DO Work Phone: Start: 04-26-2023 End: 04-26-2023 ambulatory Nathan Ball Other [employer] Other Start: 04-26-2023 Office outpatient vi sit 25 minutes Nathan Isabela [facility] Start: 04-26-2023 Telephone encounter Nathan Hathaway [facility] Start: 04-18-2023 End: 04-18-2023 ambulatory Nathan Hathaway Other [employer] Other Start: 04-18-2023 Office outpatient vi sit 25 minutes Nathan Ball [facility] Start: 04-18-2023 Telephone encounter Nathan CHURCHILL [facility] Start: 03-27-2023 End: 03-27-2023 ambulatory Nathan Hathaway Other [employer] Other Start: 03-27-2023 Telephone encounter Nathan Hathaway [facility] Start: 03-15-2023 End: 03-15-2023 ambulatory Nathan Hathaway Other [employer] Other Start: 03-15-2023 Office outpatient vi sit 25 minutes Nathan Hathaway [facility] Start: 03-09-2023 End: 03-09-[address] Edinson Perry [facility] [email or web address] Other Start: 03-09-2023 Telephone encounter Nathan CHURCHILL [facility] Start: 03-09-2023 SURGNONUH, Provider: Edinson Perry, Status: Pen, Time: 10:00 AM Nathan Hathaway Work Phone: [facility] [address] DO Work Phone: Start: 03-09-2023 End: 03-09-2023 Admission to same day surgery center DO Nathan Ball Work Phone: [facility]-Principal [employer] Work Phone: Start: 03-08-2023 End: 03-08-2023 ambulatory DO Ntahan Ball Work Phone: [facility] Work Phone: Start: 03-08-2023 End: 03-08-2023 Patient encounter procedure DO Nathan Ball Work Phone: [facility] Work Phone: Start: 03-07-2023 Office consultation new/estab patient 80 min Nathan Hathaway Work Phone: -[facility] [address] DO Work Phone: Start: 03-07-[address] Edinson Perry Facility: Start: 03-05-2023 End: 03-05-2023 ambulatory Nathan Hathaway Other [employer] Other Start: 03-05-2023 Telephone encounter Nathan Hathaway [facility] Start: 03-01-2023 End: 03-02-[address] NATHAN HATHAWAY Facility:[facility] Start: 02-27-2023 End: 02-27-2023 ambulatory Nathan Hathaway Other [employer] Other Start: 02-27-2023 Telephone encounter Nathan Hathaway [facility] Start: 02-20-2023 End: 02-20-2023 ambulatory Nathan Hathaway Other [employer] Other Start: 02-20-2023 Telephone encounter Nathan Hathaway [facility] Start: 02-14-2023 End: 02-14-2023 ambulatory Nathan Hathaway Other [employer] Other Start: 02-14-2023 Office outpatient vi sit 25 minutes Nathan Hathaway [facility] Start: 02-14-2023 Telephone encounter Nathan Hathaway [facility] Start: 02-11-2023 End: 02-11-2023 ambulatory Nathan Hathaway Other [employer] Other Start: 02-11-2023 Telephone encounter Nathan Hathaway [facility] Start: 02-08-2023 End: 02-09-2023 Evaluation and management of inpatient DR NATHAN HATHAWAY Facility:[facility] Start: 02-02-2023 End: 02-02-2023 ambulatory Nathan Hathaway Other [employer] Other Start: 02-02-2023 Office outpatient vi sit 25 minutes Nathan Hathaway [facility] Start: 01-08-2023 End: 01-09-[address] NATHAN HATHAWAY Facility:[facility] Start: 12-21-2022 End: 12-21-2022 ambulatory Nathan Hathaway Other [employer] Other Start: 12-21-2022 Telephone encounter Nathan CHURCHILL [facility] Start: 12-20-2022 End: 12-20-2022 ambulatory Nathan Hathaway Other [employer] Other Start: 12-20-2022 Telephone encounter Nathan CHURCHILL [facility] Start: 12-14-2022 End: 12-14-2022 ambulatory Nathan Hathaway Other [employer] Other Start: 12-14-2022 Patient encounter procedure Nahtan Hathaway [facility] Start: 12-04-2022 End: 12-04-2022 ambulatory NATHAN HATHAWAY Facility:[facility] Start: 12-04-2022 End: 12-04-2022 ambulatory Luis Mckenzie MD Work Phone: Hematology/Oncology Comment on above: Abnormal SPEP (Prima ry Dx); Neuropathy - (NOS); Lung nodules Start: 12-04-2022 End: 12-04-2022 Patient encounter procedure Luis Mckenzie MD Work Phone: [place] Start: 11-27-2022 End: 11-27-2022 ambulatory LUIS MCKENZIE Facility:[facility] Start: 11-23-2022 End: 11-23-2022 ambulatory Nathan Hathaway Other [employer] Other Start: 11-23-2022 Telephone encounter Nathan CHURCHILL [facility] Start: 11-16-2022 End: 11-17-[address] NATHAN HATHAWAY Facility:[facility] Start: 11-14-2022 End: 11-14-2022 ambulatory Nathan Hathaway Other [employer] Other Start: 11-14-2022 Office outpatient vi sit 25 minutes Nathan POLANCO [facility] Start: 09-11-2022 End: 09-12-[address] [...] 12-13-2021 Adult health examination Lauri Hathaway Other [employer] Other Procedures Date Procedure Procedure Detail Performing Clinician Start: 02-12-2025 Plain chest X-ray Lauri Hathaway DO Work Phone: Start: 02-10-2025 Us soft tissue head & neck real time imge docm Reyna Esparza MD Work Phone: Start: 11-17-2024 Aspiration Nathan Pacheco all DO Work Phone: Start: 03-12-2024 Cv strs tst xers&/or rx cont ecg trcg only Holden Rosado BABY NURSE-PHOTOSTATIC COPY MAKER Work Phone: Start: 10-17-2023 History of placement of stent for coronary artery disease S/P coronary artery stent placement Holden Rosado BABY NURSE-PHOTOSTATIC COPY MAKER Work Phone: Start: 05-17-2023 CT angiography of [...] Author Start: 11-05-2026 Diabetes Screening Diabetes Screening [facility] Start: 06-04-2026 DIABETES SCREEN DIABETES SCREEN [facility] Start: 11-27-2025 DIABETES SCREEN DIABETES SCREEN [facility] Start: 10-27-2025 End: 10-27-2025 Patient encounter procedure 10/27/2025 2:10 PM EST Office Visit [facility] [address] [place] [phone] Edinson Perry, [address] [facility] [address] [place] [address] [facility] Start: 08-24-2025 DIABETES SCREEN DIABETES SCREEN [facility] Start: 05-22-2025 DIABETES SCREEN DIABETES SCREEN [facility] Start: 05-04-2025 COVID-19 Vaccine ( season) COVID-19 Vaccine () [facility] Start: 04-29-2025 End: 04-29-2025 Patient encounter procedure 04/29/2025 9:30 AM EDT Office Visit [facility] [address] [place] [id number] Fercho Tse DO [address] [place] [address] [facility] Start: 03-17-2025 End: 03-17-2025 Patient encounter procedure 03/17/2025 10:45 AM EDT Appointment [facility] [address] [place] [phone] [facility] Start: 02-25-2025 End: 02-25-2025 Patient encounter procedure [facility] Comment on above: Arrived Start: 01-26-2025 End: 01-26-2025 Professional / ancillary services management 01/26/2025 3:00 PM EDT Ancillary Procedure [facility] [address] [place] [phone] [facility] Start: 01-12-2025 End: 01-12-2026 Holter monitor study Holter Or Event Radial Drill Press Set Up Operator Cardiac Services Routine Palpitations Expected: 01/12/2025 (Approximate), Expires: 01/12/2026 [facility] Service Area Work Phone: Comment on above: Expected: 01/12/2025 (Approximate), Expi res: 01/12/2026 Start: 01-12-2025 End: 01-12-2027 US Heart Transthoracic Transthoracic Echo Complete Echocardiography Routine Essential hypertension Palpitations Expected: 01/12/2025 (Approximate), Expires: 01/12/2027 [facility] Work Phone: Comment on above: Expected: 01/12/2025 (Approximate), Expi res: 01/12/2027 Start: 11-25-2024 End: 11-25-2024 Patient encounter procedure 11/25/2024 2:00 PM EST Office Visit [facility] [address] [facility] [address] [place] [id number] Reyna Esparza MD [address] [place] [address] Arrived [facility] Comment on above: Arrived Start: 11-19-2024 Patient referral [facility] Work Phone: Start: 11-17-2024 [facility] Start: 11-17-2024 [facility] Start: 10-08-2024 End: 10-08-2024 Patient encounter procedure 10/08/2024 10:40 AM EST Office Visit [facility] [address] [place] [phone] Edinson Perry DO [address] [place] [address] [facility] Start: 06-29-2024 Covid-19 Vaccine ( season) Covid-19 Vaccine ( season) [facility] Start: 06-29-2024 Influenza vaccination [facility] Start: 04-21-2024 End: 04-21-2025 Basic metabolic 2000 panel - Serum or Plasma Basic Metabolic Panel Lab Routine ASHD (arteriosclerotic heart disease) Expected: 04/21/2024 (Approximate), Expires: 04/21/2025 [facility] Service [facility] Work Phone: Comment on above: Expected: 04/21/2024 (Approximate), Expi res: 04/21/2025 Start: 04-21-2024 End: 04-21-2024 Patient encounter procedure 04/21/2024 10:30 AM EDT Office Visit [facility] [address] [place] [phone] Holden Rosado, BABY NURSE-PHOTOSTATIC COPY MAKER [address] [place] [address] [facility] Start: 03-12-2024 End: 03-12-2024 Patient encounter procedure 03/12/2024 10:15 AM EDT Appointment [facility] [address] [place] [phone] [facility] Start: 03-12-2024 End: 03-12-2024 Patient encounter procedure [facility] Start: 03-05-2024 End: 03-05-2025 Basic metabolic 2000 panel - Serum or Plasma Basic Metabolic Panel Lab Routine Essential hypertension Expected: 03/05/2024 (Approximate), Expires: 03/05/2025 [facility] Work Phone: Comment on above: Expected: 03/05/2024 (Approximate), Expi res: 03/05/2025 Start: 03-05-2024 End: 03-05-2026 NM Heart Perfusion W stress and W radionuclide IV Nuclear Stress Test Cardiac Nuclear Medicine Routine ASHD (arteriosclerotic heart disease) Expected: 03/05/2024 (Approximate), Expires: 03/05/2026 [facility] Service [facility] Work Phone: Comment on above: Expected: 03/05/2024 (Approximate), Expi res: 03/05/2026 Start: 02-09-2024 Echocardiography Echocardiogram [facility] Start: 10-29-2023 Advance Directive Discussion Advance Directive Discussion [facility] Start: 09-18-2023 FUV, Provider: Edinson Perry, Status: Pen, Time: 11:20 AM FUV, Provider: Edinson Perry, Status: Pen, [facility]: [facility] Work Phone: Start: 06-29-2023 COVID-19 Vaccine ( season) COVID-19 Vaccine ( season) [facility] Start: 06-29-2023 Influenza vaccination INFLUENZA (#1) [facility] Start: 05-29-2023 Adult depression screening assessment DEPRESSION SCREENING [facility] Start: 05-29-2023 FUV, Provider: Edinson Perry, Status: Pen, Time: 10:20 AM FUV, Provider: Edinson Perry, Status: Pen, Time: 10:20 [facility] Work Phone: Start: 05-18-2023 [facility] Start: 05-17-2023 Hospital admission [facility] Start: 03-09-2023 [facility] Start: 01-13-2023 COVID-19 VACCINE (6 - Pfizer series) COVID-19 VACCINE (6 - Pfizer series) [facility] Start: 11-22-2022 Adult depression screening assessment DEPRESSION SCREENING [facility] Start: 10-29-2022 ADVANCE DIRECTIVE DISCUSSION ADVANCE DIRECTIVE DISCUSSION [facility] Start: 10-29-2022 DEPRESSION ASSESSMENT DEPRESSION ASSESSMENT [facility] Start: 10-13-2022 COVID-19 Vaccine (3 - Pfizer risk series) COVID-19 Vaccine (3 - Pfizer risk series) [facility] Start: 06-29-2022 Influenza vaccination INFLUENZA (#1) [facility] Start: 03-25-2022 COVID-19 VACCINE (5 - Booster for Pfizer series) COVID-19 VACCINE (5 - Booster for Pfizer series) [facility] Start: 10-29-2021 ADVANCE DIRECTIVE DISCUSSION ADVANCE DIRECTIVE DISCUSSION [facility] Start: 10-29-2021 DEPRESSION ASSESSMENT DEPRESSION ASSESSMENT [facility] Start: 09-16-2021 Shingrix Vaccine (3 of 3) Shingrix Vaccine (3 of 3) [facility] Start: 09-16-2021 Zoster Vaccines (2 of 2) Zoster Vaccines (2 of 2) [facility] Start: 07-16-2021 SHINGRIX VACCINE (2 of 2) SHINGRIX VACCINE (2 of 2) [facility] Start: 2017 RSV High Risk: (Elderly (60+) or Population) (1 - 1-dose 75+ series) RSV High Risk: (Elderly (60+) or Population) (1 - 1-dose 75+ series) [facility] Start: 2017 RSV Vaccine (1 - 1-dose 75+ series) RSV Vaccine (1 - 1-dose 75+ series) [facility] Start: 07-17-2014 DTaP/Tdap/Td Vaccines (1 - Tdap) DTaP/Tdap/Td Vaccines (1 - Tdap) [facility] Start: 07-17-2014 Urine microalbumin profile DTaP,Tdap,Td Vaccine (1 - Tdap) [facility] Start: 2007 BONE DENSITY BONE DENSITY [facility] Start: 2007 PNEUMOCOCCAL: 65+ (1 - PCV) PNEUMOCOCCAL: 65+ (1 - PCV) [facility] Start: 2007 Screening for osteoporosis Bone Density Screening [facility] Start: 2002 RSV patients and/or patients aged 60+ years (1 - 1-dose 60+ series) RSV patients and/or patients aged 60+ years (1 - 1-dose 60+ series) [facility] Start: 1964 DTaP/Tdap/Td Vaccines (1 - Tdap) DTaP/Tdap/Td Vaccines (1 - Tdap) [facility] Start: 1961 Urine microalbumin profile DTAP,TDAP,TD (1 - Tdap) [facility] Start: 1960 Anxiety Screening Anxiety Screening [facility] Start: 1960 Depression Screening Depression Screening [facility] Start: 1960 Diabetes mellitus screening Diabetes Screening [facility] Start: 1942 Creatinine measurement Creatinine Level [facility] Start: 1942 Lipid panel Lipid Panel [facility] Start: 1942 Medicare Annual Wellness Visit Medicare Annual Wellness Visit (AWV) [facility] Start: 1942 Potassium measurement Potassium Level [facility] Start: 1942 Screening for osteoporosis Bone Density Scan [facility] Comprehensive metabo lic 2000 panel - Serum or Plasma [facility] End: 06-28-2023 Ct abdomen & pelvis w/contrast material CT ABD/PEL W IVCON Radiology Routine Disorder of adrenal gland (HCC) 1 Occurrences starting 05/29/2022 until 06/28/2023 [facility] Work Phone: Comment on above: 1 Occurrences starting 05/29/2022 until 06/28/2023 End: 06-28-2023 CT CHEST W IVCON CT CHEST W IVCON Radiology Routine Lung nodules 1 Occurrences starting 05/29/2022 until 06/28/2023 [facility] Work Phone: Comment on above: 1 Occurrences starting 05/29/2022 until 06/28/2023 Patient Education [facility] Work Phone: Patient referral [facility] Work Phone: End: 03-17-2025 US Heart Transthoracic [facility] Work Phone: Comment on above: Once for 1 Occurrences starting 03/17/20 until 03/17/2025 XR Knee - right 4 Views [facility] [place] Immunizations Immunization Date Immunization Notes Care Provider Fa cili 07-16-2024 influenza, high dose seasonal, preservative-free [facility] 08-06-2023 influenza virus vaccine, unspecified formulation [facility] 08-06-2023 influenza, high dose seasonal, preservative-free Nathan Hathaway Other [employer] Other 09-15-2022 COVID-19 Pfizer (Pediatric) Nathan Hathaway Other [facility] 09-15-2022 Pfizer COVID-19 Vac Bivalent 30 MCG/0.3ML Intramuscular Suspension Nathan Hathaway Work Phone: [facility] 08-11-2022 influenza virus vaccine, split virus (incl. purified surface antigen) Nathan Hathaway Other [employer] Other 08-11-2022 influenza virus vaccine, unspecified formulation [facility] 01-28-2022 COVID-19 mRNA, Comirnaty (Pfizer) DO Nathan Hathaway Work Phone: [facility] 01-28-2022 COVID-19 Pfizer Nathan Lucero viviana Other [facility] 07-30-2021 COVID-19 vaccine, ag e 12+ yr ([employer] [facility]) Luis Mckenzie MD Work Phone: [facility] 07-22-2021 zoster vaccine, live Benjami n Isabela Other [facility] 07-19-2021 influenza, high-dose , quadrivalent vaccine (FLUZONE HIGH DOSE QUADRIVALENT) Luis Mckenzie MD Work Phone: [facility] 07-18-2021 influenza virus vaccine, split virus (incl. purified surface antigen) Nathan Hathaway Other [employer] [facility] [email or web address] Other 07-18-2021 influenza virus vaccine, unspecified formulation [facility] 05-21-2021 zoster vaccine recombinant Luis Mckenzie MD Work Phone: [facility] 05-21-2021 zoster vaccine, live Benjami n Isabela Other [facility] 12-18-2020 COVID-19 vaccine, ag e 12+ yr ([employer] [facility]) Luis Mckenzie MD Work Phone: [facility] 11-27-2020 COVID-19 Vaccine Moderna - Documentation Purposes Only Nathan Hathaway Other [facility] 11-27-2020 COVID-19 vaccine, ag e 12+ yr ([employer] [facility]) Luis Mckenzie MD Work Phone: [facility] 08-11-2020 influenza virus vaccine, split virus (incl. purified surface antigen) Nathan Hathaway Other [employer] Other 08-11-2020 influenza virus vaccine, unspecified formulation [facility] 07-09-2019 AS03 adjuvant Arrival Radiol ogy Work Phone: [facility] 07-09-2019 Seasonal trivalent influenza vaccine, adjuvanted, preservative free Luis Mckenzie MD Work Phone: [facility] 08-13-2018 AS03 adjuvant Arrival Radiol ogy Work Phone: [facility] 08-13-2018 influenza virus vaccine, split virus (incl. purified surface antigen) Nathan Hathaway Other [facility] [employer] [facility] Other 08-13-2018 influenza virus vaccine, unspecified formulation [facility] 08-13-2018 Seasonal trivalent influenza vaccine, adjuvanted, preservative free Luis Mckenzie MD Work Phone: [facility] 08-03-2017 influenza virus vaccine, split virus (incl. purified surface antigen) Nathan Hathaway Other [facility] [email or web address] Other 08-03-2017 influenza virus vaccine, unspecified formulation [facility] 08-03-2017 influenza, high dose seasonal, preservative-free Luis Mckenzie MD Work Phone: [facility] 07-13-2016 influenza virus vaccine, split virus (incl. purified surface antigen) Nathan Hathaway Other [facility] [employer] [facility] Other 07-13-2016 influenza virus vaccine, unspecified formulation [facility] 09-13-2015 pneumococcal conjuga te vaccine, 13 valent Nathan Hathaway Other [facility] 08-17-2015 influenza virus vaccine, split virus (incl. purified surface antigen) Nathan Hathaway Other [facility] [email or web address] Other 08-17-2015 influenza virus vaccine, unspecified formulation [facility] 07-16-2014 tetanus and diphther ia toxoids, adsorbed, preservative free, for adult use (5 Lf of tetanus toxoid and 2 Lf of diphtheria toxoid) Nathan Hathaway Other [facility] 07-09-2013 tetanus and diphther ia toxoids, adsorbed, preservative free, for adult use (5 Lf of tetanus toxoid and 2 Lf of diphtheria toxoid) Nathan Hathaway Other [facility] 08-11-2010 pneumococcal polysaccharide vaccine, 23 valent Nathan Hathaway Other [facility] Payers Date Payer Category Payer Medicare supplementa l policy (as second payer) A[employer] [id number] 2022 Unknown 2020 Private Health Insurance [facility] AARP SUPPLEMENT [id number] 2020-Present [phone] [address] [place] [address] Indemnity [id number] 2020 Private Health Insurance [id number] 2007 Medicare MEDICARE MEDICAR E A AND B [id number] 2007-Present [phone] [place] [address] Medicare [id number] 2007 Medicare [id number] 1959 Medicare [id number] [id number] 1959 Unknown [id number] 2.16.840.1.763873.19 1942 Unknown [id number] 2.16.840.1.414159.3.579. 2.593 1942 Unknown [id number] 2.16.840.1.110219.3.579. 2.593 1942 Unknown [id number] 2.16.840.1.035450.3.579. 2.593 1942 Unknown [id number] 2.16.840.1.855759.3.579. 2.593 1942 Unknown [id number] 2.16.840.1.754244.3.579. 2.593 1942 Unknown [id number] 2.16.840.1.566430.3.579. 2.593 1942 Unknown [id number] 2.16.840.1.111020.3.579. 2.593 1942 Unknown [id number] 2.16.840.1.785668.3.579. 2.356 1942 Unknown [id number] 2.16.840.1.045225.3.579. 2.356 1942 Unknown [id number] 2.16.840.1.796310.3.579. 2.1259 1942 Unknown [id number] 2.16.840.1.897369.3.579. 2.1259 1942 Unknown [id number] 2.16.840.1.130909.3.579. 2.1259 1942 Unknown [id number] 2.16.840.1.752515.3.579. 2.1244 1942 Unknown [id number] 2.16.840.1.787074.3.579. 2.1244 1942 Unknown [id number] 2.16.840.1.706703.3.579. 2.1244 1942 Unknown [id number] 2.16.840.1.800595.3.579. 2.1244 1942 Unknown [id number] 2.16.840.1.810797.3.579. 2.1246 Medicare Medicare Outpatient [id number] Unknown [id number] Social History Date Type Detail Facility Start: 08-01-2021 End: 03-05-2024 Tobacco smoking status PAIS Ex-smoker [facility] End: 10-29-1992 History of tobacco use Cigarette Smoker [facility] Start: 08-01-2021 End: 03-05-2024 Tobacco use and exposure Smokeless tobacco non-user [facility] Start: 1940 Sex Assigned At Not on file C [facility] Start: 05-12-2022 End: 03-17-2025 Exposure to SARS-CoV-2 (event) Not sure [facility] End: 10-29-1992 History of tobacco use Current smoker [facility] Start: 06-04-2023 End: 01-12-2025 Sex Assigned At [facility] Start: 06-04-2023 End: 01-12-2025 No illicit drug use No illicit drug use [facility] Comment on above: 2 coffees in am and 1 coffee at hs; 1997; Start: 1940 Sex Assigned At Female F [facility] Start: 06-04-2023 Alcohol intake Ex-drinker (finding) [facility] Adult Depression Screening Assessment 0 [facility] Start: 12-18-2023 End: 02-12-2025 Tobacco smoking status PAIS Never smoked tobacco (finding) [facility] Start: 03-05-2024 End: 01-12-2025 Alcoholic beverage intake Lifetime non-drinker (finding) [facility] Work Phone: Start: 09-11-2024 End: 03-19-2025 Sex Female (finding) [facility] Medical Equipment Procedure Code Equipment Code [...] Facility 05-18-2023 Functional status Patient at [facility] Work Phone: 03-09-2023 Functional status Patient at [facility] Work Phone: Mental Status Date Assessment Result Facility 05-18-2023 Cognitive function Cognitive Sta tus Patient at Baseline [facility] Work Phone: 03-09-2023 Cognitive function Cognitive Sta tus Patient at Baseline [facility] Work Phone: Clinical Notes 05-29-2022 [...] June 19 9:23am Essential hypertension acute [facility] 2024 9:23am OMAR (generalized [...] subsequent noneactive June 19, 2 025 9:23am [facility] Work Phone: 1([phone]) 980-112805-16-2025 Evaluation note* Diagnosis Onset Date Resolution Status [...] fraction (HFpEF) noneactive March 19, 2025 11:21am [facility] Work Phone: 1(240) 196-502004-15-2025 History of Present illness Narrative* Reyna Esparza MD - 02/25/2025 9:00 AM EDT Subjective Patient ID: Lashaun Joaquin is a 84 y.o. female who presents for Thyroid Nodule (Follow ultrasound [facility] 02/10/25) US shows an 11mm nodule that is unchanged and mult subcentimeter nodules. No family history on file. Active Ambulatory Problems Diagnosis Date Noted Dry eyes 04/28/2024 Epiretinal membrane (ERM) of left eye 04/28/2024 Blepharitis of upper and lower eyelids of both eyes 04/28/2024 Abnormal cardiovascular stress test 11/24/2024 Adrenal nodule ([facility]) 11/24/2024 Anemia 11/24/2024 ASHD (arteriosclerotic heart disease) ([facility]) 10/17/2023 Atrophic vaginitis 11/24/2024 BMI 33.0-33.9,adult 03/05/2024 Cervical spondylosis with radiculopathy 11/24/2024 Chronic bronchitis ([facility]) 11/24/2024 Chronic heart failure with preserved ejection fraction (HFpEF) ([facility]) 11/24/2024 Chronic obstructive pulmonary disease with (acute) exacerbation ([facility]) 11/24/2024 Chronic venous insufficiency 11/24/2024 COVID 10/17/2023 Elevated serum immunoglobulin free light chain level 11/24/2024 Essential hypertension ([facility]) 10/17/2023 Flash pulmonary edema ([facility]) 11/24/2024 Former smoker 10/17/2023 OMAR (generalized anxiety disorder) ([facility]) 11/24/2024 Gastroesophageal reflux disease with esophagitis without hemorrhage 11/24/2024 Heart failure 11/24/2024 Palpitations 01/12/2025 Resolved Ambulatory Problems Diagnosis Date Noted No Resolved Ambulatory Problems Past Medical History: Diagnosis Date Arthritis Cataract Congestive heart failure (CHF) ([facility]) Coronary artery disease ([facility]) GERD (gastroesophageal reflux disease) Hypercholesteremia ([facility]) Hypertension ([facility]) Peripheral neuropathy Past Surgical History: Procedure Laterality [...] then annually if stable documented in this encounterTwo [facility] Psych[facility] [id number] Evaluation note* Diagnosis Onset Date Resolution Status Admit Date Chronic kidney disease acute [facility] 2024 9:51am Nocturnal leg cramps acute [facility] 2024 9:51am Right knee pain acute December [...] March 19, 2025 11:21am Essential hypertension acute Al y 2024 11:21am Subclinical hypothyroidism acute March 19, 2025 11:21am Thyroid nodule acute March 19, 2025 11:21am [facility] Work Phone: 1([phone]) 868-712703-17-2025 Evaluation + Plan note* Assessment & Plan Note - Holden Rosado APRN-DANIELA - 01/12/2025 3:48 PM EDTAssociated Problem(s): Cardiac and Vasculature January 2024 TTE LVEF greater than 55% Biatrial enlargement mild [facility] Work Phone: [phone] 192-207803-17-2025 Miscellaneous Notes* Assessment & Plan Note - [...] heart disease) March 09, 2023 Mid/proximal RCA PCI/Hazel Hurst 4x15mm & 4x18mm Proximal diagonal PCI/Hazel [place]st 2.5 x 18 mm LAD 10% Circumflex [...] hypertension Optimal in office documented in this [facility] Work Phone: 1([phone]) 120-590303-17-2025 Evaluation + Plan note* Assessment & Plan Note - CINTIA Gallego - 01/12/2025 3:47 PM EDTAssociated Problem(s): Hyperlipidemia High intensity statin January 2024 HDL 42, cholesterol 158 [facility] Work Phone: 1(180) 466-138603-17-2025 Evaluation + Plan note* Assessment & Plan Note - CINTIA Gallego - 01/12/2025 3:47 PM EDTAssociated Problem(s): ASHD (arteriosclerotic heart disease) March 09, 2023 Mid/proximal RCA PCI/Willie 4x15mm & 4x18mm Proximal diagonal PCI/Willie 2.5 x 18 mm LAD 10% Circumflex normal LVEF 65% February 2024 MPI ischemia, EF 88% Current daily activity at 4 METS without concerning symptoms [facility] Work Phone: 1([phone]) 732-892103-17-2025 Evaluation + Plan note* Assessment & Plan Note - CINTIA Gallego - 01/12/2025 3:46 PM EDTAssociated Problem(s): Palpitations Reports fairly daily episodes of hearing my heart thumping going into my ears No prior documented A-fib or arrhythmia. Was taken off of carvedilol January 2024 hospitalization due to bradycardia [facility] Work Phone: 1(110) 281-943203-17-2025 Evaluation + Plan note* Assessment & Plan Note - CINTIA Gallego - 01/12/2025 3:46 PM EDTAssociated Problem(s): Essential hypertension Optimal in office [facility] Work Phone: [phone]) 778-870803-17-2025 History of Present illness Narrative* CINTIA Gallego [...] heart disease) March 09, 2023 Mid/proximal RCA PCI/Hazel [place]st 4x15mm & 4x18mm Proximal diagonal PCI/Hazel [place]st 2.5 x 18 mm LAD 10% Circumflex [...] Echo (RODGERS, diastolic dysfunction) Holden Rosado MSN, BABY NURSE-PHOTOSTATIC COPY MAKER, PMHNP-BC [facility] [place], [place] Please excuse any errors in grammar or translation related to this dictation. Voice recognition software was utilized to prepare this document. documented in [facility] encounterBarn[facility] Hospital Work Phone: 1(614) 618-944003-17-2025 Instructions* Patient Instructions* CINTIA Gallego - 01/12/2025 [...] Echo (RODGERS, diastolic dysfunction) documented in this encounterBarn[facility]ville Hospital Work Phone: [phone]) 380-440501-28-2025 History of Present illness Narrative* Reyna Esparza MD - 11/25/2024 2:00 PM EST Subjective Patient ID: Lashaun Joaquin is a 84 y.o. female who presents for Thyroid Nodule Pt reports she had a thyroid US after being found to be mildly hypothyroid. US shows an 11mm mixed thyroid nodule. FNA performed that was [place] 1. No family H/O thyroid CA. No radiation exposure. Review of Systems All other systems reviewed and are negative. No family history on file. Active Ambulatory Problems Diagnosis Date Noted Dry eyes 04/28/2024 Epiretinal membrane (ERM) of left eye 04/28/2024 Blepharitis of upper and lower eyelids of both eyes 04/28/2024 Abnormal cardiovascular stress test 11/24/2024 Adrenal nodule ([facility]) 11/24/2024 Anemia 11/24/2024 ASHD (arteriosclerotic heart disease) ([facility]) 10/17/2023 Atrophic vaginitis 11/24/2024 BMI 33.0-33.9,adult 03/05/2024 Cervical spondylosis with radiculopathy 11/24/2024 Chronic bronchitis ([facility]) 11/24/2024 Chronic heart failure with preserved ejection fraction (HFpEF) ([facility]) 11/24/2024 Chronic obstructive pulmonary disease with (acute) exacerbation ([facility]) 11/24/2024 Chronic venous insufficiency 11/24/2024 COVID 10/17/2023 Elevated serum immunoglobulin free light chain level 11/24/2024 Essential hypertension ([facility]) 10/17/2023 Flash pulmonary edema ([facility]) 11/24/2024 Former smoker 10/17/2023 OMAR (generalized anxiety disorder) ([facility]) 11/24/2024 Gastroesophageal reflux disease with esophagitis without hemorrhage 11/24/2024 Heart failure ([facility]) 11/24/2024 Resolved Ambulatory Problems Diagnosis Date Noted No Resolved Ambulatory Problems Past Medical History: Diagnosis Date Arthritis Cataract Congestive heart failure (CHF) ([facility]) Coronary artery disease ([facility]) GERD (gastroesophageal reflux disease) Hypercholesteremia ([facility]) Hypertension ([facility]) Peripheral neuropathy Past Surgical History: Procedure Laterality [...] starting in late December documented in this encounterTwo Rivers Psychiatric [id number] Chief complaint+Reason for visit Narrative* Chief Complaint [...] 10:20am Thyroid nodule December 16, 2024 10:20am [facility] Work Phone: [phone] 833-326901-20-2025 Chief complaint+Reason for visit Narrative * Chief Complaint Admit Date e04.1 November 17, 2024 9 :45am Referral Order November 19, 2024 1 2:33pm 3 month f/u-HIGH RISK December 16 10:20am UA, frequency, burning December 29, 2024 1 :19pm injured right knee yesterday January 22, 2025 9:51am Reason for Visit Admit Date Thyroid nodule November 17, 2024 9 :45am ASHD (arteriosclerotic heart disease) [facility] 2024 10:20am Chronic bronchitis December [...] knee pain January 22, 2025 9:5 1am [facility] Work Phone: 1(220) 387-941501-20-2025 Evaluation note* Diagnosis Onset Date Resolution Status Admit Date Thyroid nodule acute November 172024 9:45am ASHD (arteriosclerotic heart disease) acute December 16 025 10:20am Chronic bronchitis acute Febr2024 10:20am Chronic heart failure with preserved ejection fraction (HFpEF) acute December 16 10:20am Chronic kidney disease acute [facility] 2024 10:20am Chronic venous insufficiency acute December 16, 2024 10:20am Essential hypertension acute [facility] 2024 10:20am Subclinical hypothyroidism acute December 16, 2024 10:20am Thyroid nodule acute November 292024 10:20am [facility] Work Phone: 1([phone]) 265-752201-20-2025 Evaluation note* Diagnosis Onset Date Resolution Status Admit Date Thyroid nodule acute November 172024 9:45am ASHD (arteriosclerotic heart disease) acute December 16 025 10:20am Chronic bronchitis acute 2024 10:20am Chronic heart failure with preserved ejection fraction (HFpEF) acute December 16 025 10:20am Chronic kidney disease acute [facility] 2024 10:20am Chronic venous insufficiency acute December 16, 2024 10:20am Essential hypertension acute [facility] 2024 10:20am Subclinical hypothyroidism acute December 16, 2024 10:20am Thyroid nodule acute November 292024 10:20am Chronic kidney disease acute [facility] 2024 9:51am Nocturnal leg cramps acute [facility] 2024 9:51am Right knee pain acute December 9:51am [facility] Work Phone: 1([phone]) 353-219912-11-2024 History of Present illness Narrative* Edinson Perry, [...] diastolic heart failure. She was hospitalized at [place] we were not involved in this. Her medications were changed, cluck carvedilol was discontinued and Entresto was initiated. She has supranormal left ventricular function with ejection fraction of 88% and normal perfusion scan February 2023. She did undergo primary PCI proximal RCA and diagonal branch in February 2023 for subsequentnon-ST elevation [place] event with preserved LV function. She is [...] direction and in the presence of Shelbi ePrry DO. Provider Attestation - Scribe documentation All medical record entries made by the Scribe were at my direction and personally dictated by me. Ihave reviewed the chart and agree that the record accurately reflects my personal performance of the history, physical exam, discussion and plan. documented in [facility]Barn[facility] Work Phone: [phone] Instructions* Patient Instructions* Racquel Olivera LPN - [...] Provided instructions on exercise. [facility] Work Phone: [phone]) 414-560011-14-2024 Evaluation note* Diagnosis Onset Date Resolution Status [...] Subclinical hypothyroidism acute September 11, 2024 10:16am [facility] Work Phone: [phone] Evaluation note* Diagnosis Onset Date Resolution Status [...] 10:16am Thyroid nodule acute November 172024 9:45am [facility] Work Phone: [phone] Evaluation + Plan note* Assessment & Plan Note - CINTIA Gallego - 04/22/2024 11:58 AM EDTAssociated Problem(s): BMI 32.0-32.9,adult Reviewed the merits of healthy lifestyle choices on overall cardiovascular health. [facility] Work Phone: [phone] Evaluation + Plan note* Assessment & Plan Note - CINTIA Gallego - 04/22/2024 11:58 AM EDTAssociated Problem(s): Hyperlipidemia High intensity statin January 2024 HDL 42, cholesterol 158 [facility] Work Phone: [phone]) 127-604606-25-2024 Evaluation + Plan note* Assessment & Plan Note - CINTIA Gallego - 04/22/2024 11:58 AM EDTAssociated Problem(s): Essential hypertension Optimal in the office [facility] Work Phone: [phone] Evaluation + Plan note* Assessment & Plan Note - CINTIA Gallego - 04/22/2024 11:58 AM EDTAssociated Problem(s): ASHD (arteriosclerotic heart disease) March 09, 2023 Mid/proximal RCA PCI/[place] 4x15mm & 4x18mm Proximal diagonal PCI/Willie 2.5 x 18 mm LAD 10% Circumflex normal LVEF 65% February 2024 MPI ischemia, EF 88% Current daily activity at 4 METS without concerning symptoms [facility] Work Phone: [phone]) 274-885206-25-2024 Miscellaneous Notes* Assessment & Plan Note - [...] heart disease) March 09, 2023 Mid/proximal RCA PCI/[place] 4x15mm & 4x18mm Proximal diagonal PCI/Willie 2.5 x 18 mm LAD 10% Circumflex normal LVEF 65% February 2024 MPI ischemia, EF 88% Current daily activity at 4 METS without concerning symptoms documented in this [facility] Work Phone: [phone] 310-749406-24-2024 History of Present illness Narrative* CINTIA Gallego [...] heart disease) March 09, 2023 Mid/proximal RCA PCI/[place] 4x15mm & 4x18mm Proximal diagonal PCI/[place] 2.5 x 18 mm LAD 10% Circumflex [...] Dr. Perry 6 months Holden Rosado MSN, BABY NURSE-PHOTOSTATIC COPY MAKER, PMHNP-[facility] Please excuse any errors in grammar or translation related to this dictation. Voice recognition software was utilized to prepare this document. documented in this [facility] Work Phone: [phone]) 570-839506-24-2024 Instructions* Patient Instructions* CINTIA Gallego - 04/21/2024 [...] Dr. Perry 6 months [facility] Work Phone: [phone]) 194-199705-09-2024 Evaluation + Plan note* Assessment & Plan Note - CINTIA Gallego - 03/06/2024 10:42 AM EDTAssociated Problem(s): BMI 32.0-32.9,adult Reviewed the merits of healthy lifestyle choices on overall cardiovascular health. [facility] Work Phone: [phone]) 160-890505-09-2024 Evaluation + Plan note* Assessment & Plan Note - CINTIA Gallego - 03/06/2024 10:42 AM EDTAssociated Problem(s): Hyperlipidemia High intensity statin January 2024 HDL 42, cholesterol 158 [facility] Work Phone: [phone] 304-615705-09-2024 Miscellaneous Notes* Assessment & Plan Note - [...] Circumflex normal LVEF 65% documented in [facility] Work Phone: [phone] 401-852705-09-2024 Evaluation + Plan note* Assessment & Plan Note - CINTIA Gallego - 03/06/2024 10:41 AM EDTAssociated Problem(s): Essential hypertension Optimal in office [facility] Work Phone: [phone] 411-194005-09-2024 Evaluation + Plan note* Assessment & Plan Note - CINTIA Gallego - 03/06/2024 10:41 AM EDTAssociated Problem(s): ASHD (arteriosclerotic heart disease) March 09, 2023 Mid/proximal RCA PCI/[place] 4x15mm & 4x18mm Proximal diagonal PCI/[place] 2.5 x 18 mm LAD 10% Circumflex normal LVEF 65% [facility] Work Phone: [phone] 730-384505-08-2024 History of Present illness Narrative* CINTIA Gallego - 03/05/2024 11:30 AM EDT Chief Complaint I am just not feeling good Reason for Visit Patient presents to the office today for outpatient follow-up for hospital follow-up. Last evaluated in clinic by Dr. Perry September 2023. January 2024: Hospitalized at [facility] due to accelerated hypertension and bradycardia. [...] heart disease) March 09, 2023 Mid/proximal RCA PCI/[place] 4x15mm & 4x18mm Proximal diagonal PCI/Willie 2.5 [...] contact the office if new symptoms arise. COLOR GRINDER after testing Holden Rosado MSN, BABY NURSE-PHOTOSTATIC COPY MAKER, PMHNP-[facility] Please excuse any errors in grammar or translation related to this dictation. Voice recognition software was utilized to prepare this document. documented in this [facility] Work Phone: [phone]) 578-218405-08-2024 Instructions* Patient Instructions* CINTIA Gallego - 03/05/2024 [...] contact the office if new symptoms arise. COLOR GRINDER after testing documented [facility] Work Phone: [phone] 225-222301-30-2024 Evaluation note* Encounter Date Diagnosis Assessment Notes Treatment Notes Treatment Clinical Notes Oct, Primary insomnia (ICD-10 - F51.01) [facility] Other 01-08-2024 NoteHNO ID: [id number] Author: PAOLO CASILLAS APRN.DANIELA Service: ? Author [...] reactive to light, ext (more content not included)...[facility]01-05-2024 Evaluation note* Encounter Date Diagnosis Assessment [...] in remission (ICD-10 - F17.211) Continue abstinence [facility] Other 12-05-2023 Evaluation note* Encounter Date Diagnosis [...] and feet daily for blisters and ulcerations. [facility] Other 11-29-2023 Evaluation note* Encounter Date Diagnosis Assessment Notes Treatment Notes Treatment Clinical Notes Aug, Chronic venous insufficiency (ICD-10 - I87.2) [facility] Other 11-24-2023 Evaluation note* Encounter Date Diagnosis Assessment Notes Treatment Notes Treatment Clinical Notes Aug, Subacute cough (ICD-10 - R05.2) Aug, Dyspnea on exertion (ICD-10 - R06.09) [facility] Other 11-20-2023 Evaluation note* Encounter Date Diagnosis Assessment Notes Treatment Notes Treatment Clinical Notes Aug, Chronic venous insufficiency (ICD-10 - I87.2) [facility] Other 11-16-2023 Evaluation note* Encounter Date Diagnosis Assessment Notes Treatment Notes Treatment Clinical Notes 16 Nov, 2023 Chronic venous insufficiency (ICD-10 - I87.2) [facility] Other 11-14-2023 Evaluation note* Encounter Date Diagnosis Assessment Notes Treatment Notes Treatment Clinical Notes Aug, Acute bronchitis due to other specified organisms (ICD-10 - J20.8) Instructed to use Robitussin or Mucinex for cough, saline or Flonase NS for congestion, Tylenol for pain and fever. Aug, Chronic obstructive pulmonary disease with (acute) exacerbation (ICD-10 - J44.1) Begin using EDEL as needed to mobilize secretions. [facility] Other 10-19-2023 Evaluation note* Encounter Date Diagnosis Assessment Notes Treatment Notes Treatment Clinical Notes Jul, Aphthous ulcer (ICD-10 - K12.0) [facility] Other 09-20-2023 Evaluation note* Encounter Date Diagnosis Assessment Notes Treatment Notes Treatment Clinical Notes Jun, Dysuria (ICD-10 - R30.0) [facility] Other 09-19-2023 Evaluation note* Encounter Date Diagnosis Assessment Notes Treatment Notes Treatment Clinical Notes Jun, Dysuria (ICD-10 - R30.0) [facility] Other 08-28-2023 Evaluation note* Encounter Date Diagnosis Assessment Notes Treatment Notes Treatment Clinical Notes May, Chronic venous insufficiency (ICD-10 - I87.2) [facility] Other 08-24-2023 Evaluation note* Encounter Date Diagnosis Assessment Notes Treatment Notes Treatment Clinical Notes May, Primary insomnia (ICD-10 - F51.01) [facility] Other 08-21-2023 Evaluation note* Encounter Date Diagnosis Assessment Notes Treatment Notes Treatment Clinical Notes May, Diastolic hypertension (ICD-10 - I10) [facility] Other 08-18-2023 Evaluation note* Encounter Date Diagnosis Assessment Notes Treatment Notes Treatment Clinical Notes May, Primary hypertension (ICD-10 - I10) [facility] Other 08-18-2023 Evaluation note* Encounter Date Diagnosis Assessment Notes Treatment Notes Treatment Clinical Notes May, Diastolic hypertension (ICD-10 - I10) [facility] Other 08-11-2023 Evaluation note* Encounter Date Diagnosis [...] and feet daily for blisters and ulcerations. [facility] Other 08-09-2023 Miscellaneous Notes* Telephone Encounter - [...] can further discuss then. documented in [facility] NoteHNO ID: [id number] Author: Luis Mckenzie MD Service: ? Author [...] shortness of breath and was hospitalized at [facility] and treated for suspected pneumonia. Apparently it was later felt she had heart disease, and cardiac catheterization revealed severe coronary artery disease. She subsequently underwent stent placement at [facility]. Apparently her shortness of breath persisted, and [...] extremities and face. Ne (more content not included)...[facility]08-07-[facility] History of Present illness Narrative* Luis [...] shortness of breath and was hospitalized at [facility] and treated for suspected pneumonia. Apparently it was later felt she had heart disease, and cardiac catheterization revealed severe coronary artery disease. She dumont bsequently underwent stent placement at [facility]. Apparently her shortness of breath persisted, and [...] shortness of breath and was hospitalized at [facility] treated for suspected pneumonia. Apparently it was later felt she had heart disease, and cardiac catheterization revealed severe coronary artery disease. She subsequently underwent stent placement at [facility]. April 2023 she developed severe shortness of breath and was hospitalized at [facility] 05/17/2023with CHF. She improved with diuresis but [...] MD CC: Dr. Perry documented in this encounterClerm[facility]07-28-[facility]23 Evaluation note* Encounter Date Diagnosis Assessment [...] dependence, cigarettes, in remission (ICD-10 - F17.211) [facility] Other 07-21-2023 Discharge summary Author Lj Ryan [facility] May 18, 2023 11:44am Note Date/Time May 18, 2023 11:4 4am [facility] [address] [place] [address] Discharge Summary Signed Patient: Lashaun Joaquin MR#: [id number] : 1940 Acct:[id number] Age/Sex: 82 / F Adm Date: 3 Loc: Room: [address] [place] [address]: Lj Ryan DO Copies to: [...] % (Auto) 73.6, Lymph % (Auto) 15.1, Lassen % (Auto) 8.7, Eos % (Auto) 1.9, Baso % (Auto) 0.7, Nucleat RBC Rel Count 0.1, Neut # (Auto) 4.4, Lymph # (Auto) 0.9 L, Lassen # (Auto) 0.5, Eos # (Auto) 0.1, [...] signed by Lj Ryan DO> 05/18/23 1144 [facility] Work Phone: 1([phone]) 978-273607-20-2023 History and physical note Author Lj Ryan [facility] May 17, 2023 3:56pm Note Date/Time May 17, 2023 3:49 pm [facility] [address] [place] [address] Hospitalist H&P Signed Patient: Lashaun Joaquin MR#: [id number] : 1940 Acct:[id number] Age/Sex: 82 / F Adm Date: 3 Loc: Room: [address] [place] [address] Type: ADM INOo Attending Dr: Lj Ryan [...] negative unless noted below or in HPI [facility] Medical History (Updated 05/17/23 @ [...] % (Auto) 9.3 % (.) 05/17/23 10:25 Lassen % (Auto) 5.5 % (.) 05/17/23 10:25 Eos % (Auto) 0.5 % (.) 05/17/23 10:25 Baso % (Auto) 0.5 % (.) 05/17/23 10:25 Nucleat RBC Rel Count 0.0 /100 WBC (0-0.5) 05/17/23 10:25 Neut # (Auto) 8.6 x10E3/uL (1.8-7.7) H 05/17/23 10:25 Lymph # (Auto) 1.0 x10E3/uL (1.00-4.8) 05/17/23 10:25 Lassen # (Auto) 0.6 x10E3/uL (0.0-0.8) 05/17/23 10:25 [...] 1 Documented By: Lj Ryan DO 05/17/23 1540 Signed By: <Electronically signed by Lj Ryan DO> 05/17/23 1559 [facility] Work Phone: [phone]) 222-374707-19-2023 Evaluation note* Encounter Date Diagnosis Assessment Notes [...] [BMI ] 33.0-33.9, adult (ICD-10 - Z68.33) [facility] Other 07-12-2023 Evaluation note* Encounter Date Diagnosis [...] dependence, cigarettes, in remission (ICD-10 - F17.211) [facility] Other 06-29-2023 Evaluation note* Encounter Date Diagnosis Assessment Notes Treatment Notes Treatment Clinical Notes Mar, Paronychia of finger of right hand (ICD-10 - L03.011) [facility] Other 06-29-2023 Evaluation note* Encounter Date Diagnosis [...] healthy diet. Mar, Paresthesias (ICD-10 - R20.2) [facility] Other 06-21-2023 Evaluation note* Encounter Date Diagnosis [...] post PCI/stent placement. Continue for 12 months [facility] Other 06-21-2023 Evaluation note* Encounter Date Diagnosis Assessment Notes Treatment Notes Treatment Clinical Notes Mar, Chronic bronchitis, simple (ICD-10 - J41.0) [facility] Other 05-30-2023 Evaluation note* Encounter Date Diagnosis Assessment Notes Treatment Notes Treatment Clinical Notes February, Paresthesias (ICD-10 - R20.2) [facility] Other 05-18-2023 Evaluation note* Encounter Date Diagnosis [...] Titrate Gabapentin and monitor for fluid retention [facility] Other 05-08-2023 Evaluation note* Encounter Date Diagnosis Assessment Notes Treatment Notes Treatment Clinical Notes February, Primary hypertension (ICD-10 - I10) February, Chronic venous insufficiency (ICD-10 - I87.2) [facility] Other 04-19-2023 Evaluation note* Encounter Date Diagnosis [...] pain, change in appetite or bowel habits [facility] Other 04-16-2023 Evaluation note* Encounter Date Diagnosis [...] chronic diastolic heart failure (ICD-10 - I50.33) [facility] Other 04-07-2023 Evaluation note* Encounter Date Diagnosis [...] Diet and exercise with continued statin therapy. [facility] Other 02-23-2023 Evaluation note* Encounter Date Diagnosis Assessment Notes Treatment Notes Treatment Clinical Notes Nov, Primary insomnia (ICD-10 - F51.01) [facility] Other 02-16-2023 Evaluation note* Encounter Date Diagnosis [...] mammogram for breast cancer (ICD-10 - Z12.31) [facility] Other 02-06-2023 NoteHNO ID: [id number] Author: Luis Mckenzie MD Service: ? Author [...] respiratory effort, and percussion. (more content not included)...[facility]02-06-2023 History of Present illness Narrative* Luis [...] PCP. Luis Mckenzie MD documented in this encounterClerm[facility]01-17-[facility]23 Evaluation note* Encounter Date Diagnosis Assessment [...] or drinking prior to bedtime. Weight loss. [employer] Other 11-01-2022 Miscellaneous Notes* Telephone Encounter - [...] in November MARBIN Freeman documented in this encounterClerm[facility]10-31-2022 History of Present illness Narrative* Nancy [...] 28, 2022 12:49 PM documented in this encounterClermont [facility]08-01-2022 History of Present illness Narrative* Luis [...] PCP. 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 Lung nodules Other nonspecific abnormal finding of lung field documented in this encounter [facility]* Diagnosis Abnormal SPEP- Primary Other nonspecific findings on examination of blood Neuropathy - (NOS) Lung nodules Other nonspecific abnormal finding of lung field documented in this encounter [facility] noteNo InformationNoozarks community hospital [employer] Other Evaluation noteNo assessment information available [facility] Work Phone: Evaluation note* Diagnosis Onset Date Resolution Status Flash pulmonary edema acute Heart failure acute Hypertension acute Hypertensive emergency acute Hypoxia acute [facility] Work Phone: Evaluation note* Diagnosis Abnormal SPEP- Primary Other nonspecific findings on examination of blood Anemia, unspecified type Neuropathy - (NOS) Heart disease Heart disease, unspecified documented in this encounter [facility]* Diagnosis Onset Date Resolution Status ASHD (arteriosclerotic heart disease) acute Chronic diastolic heart failure acute Chronic venous insufficiency acute Elevated cholesterol acute Essential hypertension acute OMAR (generalized anxiety disorder) acute Gastroesophageal reflux dise ase with esophagitis without hemorrhage acute 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 [facility] Work Phone: Evaluation note* Diagnosis Onset Date [...] tube dysfunction acute Right otitis media acute [facility] Work Phone: Evaluation note* Diagnosis ASHD (arteriosclerotic heart disease)- Primary Coronary atherosclerosis of unspecified type of vessel, [place] or graft Essential hypertension Unspecified essential hypertension Mixed hyperlipidemia BMI 32.0-32.9,adult documented in this encounter [facility] Work Phone: Evaluation note* Diagnosis Onset [...] (generalized anxiety disorder) acute Subclinical hypothyroidism a [facility] Work Phone: Evaluation note* Diagnosis ASHD (arteriosclerotic heart disease) Coronary atherosclerosis of unspecified type of vessel, [place] or graft documented in this encounter [facility] Work Phone: Evaluation note* Diagnosis Onset Date Resolution Status Anemia acute ASHD (arteriosclerotic heart disease) acute Chronic diastolic heart failure acute Chronic venous insufficiency acute Essential hypertension acute OMAR (generalized anxiety disorder) acute Subclinical hypothyroidism a [facility] Work Phone: Evaluation note* Diagnosis 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 Lung nodules Other nonspecific abnormal finding of lung field documented [facility] this [facility]* Diagnosis Onset Date Resolution Status [...] Subclinical hypothyroidism acute September 11, 2024 10:16am [facility] Work Phone: Evaluation note* Diagnosis Essential hypertension- Primary Unspecified essential hypertension ASHD (arteriosclerotic heart disease) Coronary atherosclerosis of unspecified type of vessel, [place] or graft Mixed hyperlipidemia BMI 32.0-32.9,adult documented in this encounter [facility] Work Phone: Evaluation note* Diagnosis ASHD (arteriosclerotic heart disease)- Primary Coronary atherosclerosis of unspecified type of vessel, [place] or graft Essential hypertension Unspecified essential hypertension Mixed hyperlipidemia BMI 32.0-32.9,adult Essential hypertension- Primary Unspecified essential hypertension ASHD (arteriosclerotic heart disease) Coronary atherosclerosis of unspecified type of vessel, [place] or graft Mixed hyperlipidemia BMI 32.0-32.9,adult ASHD (arteriosclerotic heart disease) Coronary atherosclerosis of unspecified type of vessel, [place] or graft Essential hypertension Unspecified essential hypertension BMI 33.0-33.9,adult Former smoker Personal history of tobacco use, presenting hazards to health S/P PTCA (percutaneous transluminal coronary angioplasty) Postsurgical percutaneous transluminal coronary angioplasty status Mixed hyperlipidemia Coronary arteriosclerosis after percutaneous transluminal coronary angioplasty (PTCA) documented in this encounter [facility] Work Phone: Evaluation note* Diagnosis Thyroid nodule (CMS/HCC)- Primary Nontoxic uninodular goiter documented in this encounter [facility] Healthcare[facility]* Diagnosis ASHD (arteriosclerotic heart disease)- Primary Coronary atherosclerosis of unspecified type of vessel, [place] or graft Essential hypertension Unspecified essential hypertension Mixed hyperlipidemia BMI 32.0-32.9,adult Essential hypertension- Primary Unspecified essential hypertension ASHD (arteriosclerotic heart disease) Coronary atherosclerosis of unspecified type of vessel, [place] or graft Mixed hyperlipidemia BMI 32.0-32.9,adult BMI 33.0-33.9,adult- Primary Essential hypertension Unspecified essential hypertension Palpitations ASHD (arteriosclerotic heart disease) Coronary atherosclerosis of unspecified type of vessel, [place] or graft Mixed hyperlipidemia documented in this encounter [facility] Work Phone: Evaluation note* Diagnosis Nontoxic multinodular goiter (CMS/HCC)- Primary Nontoxic multinodular goiter documented in this encounter [facility] Healthcare[facility]* Diagnosis ASHD (arteriosclerotic heart disease)- Primary Coronary atherosclerosis of unspecified type of vessel, [place] or graft Essential hypertension Unspecified essential hypertension Mixed hyperlipidemia BMI 32.0-32.9,adult Essential hypertension- Primary Unspecified essential hypertension ASHD (arteriosclerotic heart disease) Coronary atherosclerosis of unspecified type of vessel, [place] or graft Mixed hyperlipidemia BMI 32.0-32.9,adult BMI 33.0-33.9,adult- Primary Essential hypertension Unspecified essential hypertension Palpitations ASHD (arteriosclerotic heart disease) Coronary atherosclerosis of unspecified type of vessel, [place] or graft Mixed hyperlipidemia Essential hypertension Unspecified essential hypertension Palpitations documented in this encounter [facility] Work Phone: History general Narrative - [...] Colonoscopy 2012 Hospitalization History see surgical history [facility] Other History general Narrative - Reported* Type [...] diagonal br Hospitalization History see surgical history [facility] Other Hospital Discharge instructions Additional Instructions Please [...] to control your blood pressure in the hospital.[facility] Work Phone: Hospital Discharge instructionsAmbulatory Orders* Referral to ENT Time Frame: 11/19/24, Location: None Selected [facility] Work Phone: Reason for referral (narrative)* Consultation (Routine) - Authorized Specialty Diagnoses / Procedures Referred By Contac t Referred To Contact Cardiology Diagnoses ASHD (arteriosclerotic heart disease) Procedures Follow Up In Cardiology Holden Rosado APRN-CNP [address] [facility], [address] [address] Referral ID Status Reason Start Date Expiration Date V isits Requested Visits Authorized [id number] Authorized 03/05/2024 03/05/2025 1 1 * Cardiac Stress Testing (Routine) - Pending Review Specialty Diagnoses / Procedures Referred By Isabelle t Referred To Contact Radiology Diagnoses ASHD (arteriosclerotic heart disease) Procedures Nuclear Stress Test CHG MYOCARDIAL SPECT MULTIPLE STUDIES Holden Rosado APRN-CNP [address] [place] [address], [address] [address] Referral ID Status Reason Start Date Expiration Date V isits Requested Visits Authorized [id number] Pending Review 03/05/2024 03/05/2025 5 5 [facility] Work Phone: Rehzhz for referral (narrative)* Consultation (Routine) - Authorized Specialty Diagnoses / Procedures Referred By Contac t Referred To Contact Cardiology Diagnoses ASHD (arteriosclerotic heart disease) Procedures Follow Up In Cardiology Holden Rosado APRN-CNP [address] [facility] [address], [address] [address] Referral ID Status Reason Start Date Expiration Date V isits Requested Visits Authorized [id number] Authorized 04/21/2024 04/21/2025 1 1 [facility] Work Phone: Reason for referral (narrative)No reason for referral information availableMount Carmel Health System Work Phone: Reason for visit Narrative* CV Imaging (Routine) - Authorized Specialty Diagnoses / Procedures Referred By Contac t Referred To Contact Cardiology Diagnoses Essential hypertension Palpitations Procedures Transthoracic Echo Complete SD ECHO [facility] R-T 2D W/WOM-MODE COMPL SPEC&COLR D Holden Rosado APRN-PHOTOSTATIC COPY MAKER [facility] [facility], [address] [address] Phone: tel: fax: Referral ID Status Reason Start Date Expiration Date Visits Requested Visits Authorized [id number] Authorized Perform Procedure 01/12/2025 01/12/2026 1 1 [facility] Work Phone: Advance Directives Documents on File Type Date Recorded Patient Barrel And Receiver Aligner Expl anation Advance Directive(s) 08/01/2021 12:55 PM A dvance Directives Documents on File Type Date Recorded Patient Barrel And Receiver Aligner Expl anation Advance Directive(s) 08/01/2021 12:55 PM [...] COMPUTED TOMOGRAPHY THORAX W/CONTRAST Luis Mckenzie MD [address] [place] [address] [place] [address] Ct Imaging Referral ID Status Reason Start Date Expiration Date Visits Requested Visits Authorized [id number] Authorized Auto-Generat ed Referral 05/29/2022 06/28/2023 1 1 Specialty Diagnoses / Procedures Referred By Contac t Referred To Contact CT IMAGING Diagnoses Disorder of adrenal gland (HCC) Procedures CT ABD/PEL W IVCON CT ABD & PELVIS W/CONTRAST Luis Mckenzie MD [address] [place] [address] [place] [address] Ct Imaging Referral ID Status Reason Start Date Expiration Date Visits Requested Visits Authorized [id number] Authorized Auto-Generat ed Referral 05/29/2022 06/28/2023 1 1 Specialty Diagnoses / Procedures Referred By Contac t Referred To Contact Radiology Diagnoses ASHD (arteriosclerotic heart disease) Procedures Nuclear Stress Test CHG MYOCARDIAL SPECT MULTIPLE STUDIES Holden Rosado, BABY NURSE-PHOTOSTATIC COPY MAKER [facility] [facility], [address] [place] [address] Referral ID Status Reason Start Date Expiration Date V isits Requested Visits Authorized [id number] Pending Review 03/05/2024 03/05/2025 5 5 [facility] Diagnoses / [facility] Diagnoses Lung nodules Procedures CT CHEST W IVCON DIAGNOSTIC COMPUTED TOMOGRAPHY THORAX W/CONTRAST Luis Mckenzie MD [address] [place] [address] [place] [address] Ct Imaging [id number] Referral ID Status Reason Start Date Expiration Date V isits Requested Visits Authorized [id number] Closed Auto-Generate d Referral 05/29/2022 06/28/2023 1 1 [facility]ty Diagnoses / [facility]ING Diagnoses Disorder of adrenal gland (HCC) Procedures CT ABD/PEL W IVCON CT ABD & PELVIS W/CONTRAST Luis Mckenzie MD [address] [place] [address] [place] [address] [place] [address] Referral ID Status Reason Start Date Expiration Date V isits Requested Visits Authorized [id number] Closed Auto-Generate d Referral 05/29/2022 06/28/2023 1 [...] neoplasm of lung Unknown Exposure to Agent [place] Unknown brother Malignant neoplasm of colon Unknown [...] neoplasm of lung Unknown Exposure to Agent [place] Unknown brother Malignant neoplasm of colon Unknown [...] neoplasm of lung Unknown Exposure to Agent [place] Unknown brother Malignant neoplasm of colon Unknown [...] heart failure Chronic venous insufficiency Essential hypertension OAMR (generalized anxiety disorder) Subclinical hypothyroidism Chief Complaint i10 4 month follow up Reason for Visit Anemia ASHD (arteriosclerotic heart disease) Chronic diastolic heart failure Chronic venous insufficiency Essential hypertension MOAR (generalized anxiety disorder) Subclinical hypothyroidism Chief Complaint [...] or prosecute any alcohol or drug abuse patient.[facility] the event this information is protected by the Federal Confidentiality of Alcohol and Drug Abuse Patient Records regulations: The Federal rules restrict any use of the information to criminally investigate or prosecute any alcohol or drug abuse patient.[facility] the event this information is protected by the Federal Confidentiality of Alcohol and Drug Abuse Patient Records regulations: The Federal rules restrict any use of the information to criminally investigate or prosecute any alcohol or drug abuse patient.[facility] the event this information is protected by the Federal Confidentiality of Alcohol and Drug Abuse Patient Records regulations: The Federal rules restrict any use of the information to criminally investigate or prosecute any alcohol or drug abuse patient.[facility] the event this information is protected by the Federal Confidentiality of Alcohol and Drug Abuse Patient Records regulations: The Federal rules restrict any use of the information to criminally investigate or prosecute any alcohol or drug abuse patient.[facility] the event this information is protected by the Federal Confidentiality of Alcohol and Drug Abuse Patient Records regulations: The Federal rules restrict any use of the information to criminally investigate or prosecute any alcohol or drug abuse patient.[facility] the event this information is protected by the Federal Confidentiality of Alcohol and Drug Abuse Patient Records regulations: The Federal rules restrict any use of the information to criminally investigate or prosecute any alcohol or drug abuse patient.[facility] Reason for Visit (unrecogniz ed section and content) Reason Comments Lab Orders Reason Comments abnormal spep Reason Comments Results Reason Comments Abnormal SPEP Reason Comments Follow-up bradycardia Specialty Diagnoses / Procedures Referred By Isabelle t Referred To Contact Radiology Diagnoses ASHD (arteriosclerotic heart disease) Procedures Nuclear Stress Test CHG MYOCARDIAL SPECT MULTIPLE STUDIES Holden Rosado, BABY NURSE-PHOTOSTATIC COPY MAKER [facility] [address], [address] [address] Referral ID Status Reason Start Date Expiration Date V isits Requested Visits Authorized [id number] Pending Review 03/05/2024 03/05/2025 [address] Specialty Diagnoses / Procedures Referred By Isabelle t Referred To Contact CT IMAGING Diagnoses Lung nodules Procedures CT CHEST W IVCON DIAGNOSTIC COMPUTED TOMOGRAPHY THORAX W/CONTRAST Luis Mckenzie MD [address] [place] [address] [place] [address] [place] [address] Referral ID Status Reason Start Date Expiration Date V isits Requested Visits Authorized [id number] Closed Auto-Generate d Referral 05/29/2022 06/28/2023 1 1 Reason Comments Follow-up Test resultx Specialty Diagnoses / Procedures Referred By Contac t Referred To Contact Cardiology Diagnoses ASHD (arteriosclerotic heart disease) Procedures Follow Up In Cardiology Edinson Perry DO [address] [facility], [address] [place] [address] Holden Rosado BABY NURSE-PHOTOSTATIC COPY MAKER [facility] [address], [address] [address] Referral ID Status Reason Start Date Expiration Date V isits Requested Visits Authorized [id number] Authorized 10/17/2023 10/16/2024 1 1 Reason Comments Follow-up 6 month Specialty Diagnoses / Procedures Referred By Contac t Referred To Contact Cardiology Diagnoses ASHD (arteriosclerotic heart disease) Procedures Follow Up In Cardiology Holden Rosado, BABY NURSE-PHOTOSTATIC COPY MAKER [facility] [facility] [address], [address] [address] Phone: tel: fax: Referral ID Status Reason Start Date Expiration Date V isits Requested Visits Authorized [id number] Authorized 04/21/2024 04/21/2025 1 1 Reason Onset Date Comments Med Refill 10/09/2024 Reason Comments Thyroid Nodule Specialty Diagnoses / Procedures Referred By Contac t Referred To Contact Otolaryngology Diagnoses Nontoxic single thyroid nodule (CMS/HCC) Procedures SD UNLISTED EVALUATION AND MANAGEMENT SERVICE Nathan Hathaway MD [address] [place] [address] Phone: tel: Reyna Esparza MD [address] [facility] [address] [place] [address] Phone: tel: fax: Referral ID Status Reason Start Date Expiration Date Visits Re quested Visits Authorized [id number] Closed 11/19/2024 05/18/2025 1 1 Reason Comments Follow-up 6 months Follow up f or Coronary Artery Disease Specialty Diagnoses / Procedures Referred By Contac t Referred To Contact Cardiology Diagnoses Essential hypertension Procedures Follow Up In Cardiology Edinson Perry DO [address] [facility] [address], [address] [address] Phone: tel: fax: Holden Rosado, BABY NURSE-PHOTOSTATIC COPY MAKER [facility] [address], [address] [address] Phone: tel: fax: Referral ID Status Reason Start Date Expiration Date V isits Requested Visits Authorized [id number] Authorized 10/08/2024 10/08/2025 1 1 Reason Comments [...] 2024 Team Status: Active Member Role Status Hortecnia Hathaway , DO Primary Care Provide r, [...] February 01, 2024 End: February 01, 2024 Control System Computer Scientist Relationship Specialty Start Date End Date Nathan Hathaway DO PCP - General Internal Medicine 01/31/12 Control System Computer Scientist Relationship Specialty Start Date End Date Nathan Hathaway DO PCP - General Internal Medicine 01/31/12 Control System Computer Scientist Relationship Specialty Start Date End Date Nathan Hathaway DO PCP - General Internal Medicine 01/31/12 Control System Computer Scientist Relationship Specialty Start Date End Date Nathan [...] , DO Admit Provider, Attending Provider Active Control System Computer Scientist Relationship Specialty Start Date End Date Nathan Hathaway DO PCP - General Internal Medicine 01/31/12 Control System Computer Scientist Relationship Specialty Start Date End Date Nathan Hathaway DO PCP - General Internal Medicine 01/31/12 Team Status: Active Member Role Status Dates Nathan Hathaway DO Primary Care Provide r, Attending Provider Active Start: February 02, 2024 Team Status: Inactive Member Role Status Dates Nathan Hathaway DO Primary Care Provider Active Start: February 13, 2024 End: February 13, 2024 Deja Pope APRN COLOR GRINDER-C Attending Provider Act babar Start: February 13, 2024 End: February 13, 2024 Control System Computer Scientist Relationship Specialty Start Date End Date Nathan [...] February 27, 2024 End: February 27, 2024 Control System Computer Scientist Relationship Specialty Start Date End Date Nathan Hathaway DO PCP - General Internal Medicine 10/03/23 Control System Computer Scientist Relationship Specialty Start Date End Date Nathan Hathaway DO PCP - General Internal Medicine 10/03/23 Control System Computer Scientist Relationship Specialty Start Date End Date Nathan Hathaway DO PCP - General Internal Medicine 10/03/23 Control System Computer Scientist Relationship Specialty Start Date End Date Nathan Hathaway DO PCP - General Internal Medicine 10/03/23 Control System Computer Scientist Relationship Specialty Start Date End Date Nathan Hathaway DO PCP - General Internal Medicine 01/31/12 Control System Computer Scientist Relationship Specialty Start Date End Date Nathan Hathaway DO PCP - General Internal Medicine 10/03/23 Control System Computer Scientist Relationship Specialty Start Date End Date Nathan Hathaway DO PCP - General Internal Medicine 10/03/23 Control System Computer Scientist Relationship Specialty Start Date End Date Nathan Hathaway MD [address] [facility] [place] [id number] PCP - External PCP Internal Medicine 06/29/23 Control System Computer Scientist Relationship Specialty Start Date End Date Nathan Hathaway MD [address] [facility] [place] [id number] PCP - External PCP Internal Medicine 06/29/23 Control System Computer Scientist Relationship Specialty Start Date End Date Nathan Hathaway MD [address] [facility] [place] [address] PCP - External PCP Internal Medicine 06/29/23 Control System Computer Scientist Relationship Specialty Start Date End Date Nathan Hathaway DO PCP - General Internal Medicine 10/03/23 Team Status: Inactive Member Role Status Dates Nathan Hathaway DO Primary Care Provide r, Attending Provider Active Start: January 22, 2025 End: January 22, 2025 Control System Computer Scientist Relationship Specialty Start Date End Date Nathan Hathaway MD [address] [facility] [place] [id number] PCP - General Internal Medicine 02/10/25 Control System Computer Scientist Relationship Specialty Start Date End Date Nathan Hathaway DO [address] [place] [address] PCP - General Internal Medicine 02/10/25 Control System Computer Scientist Relationship Specialty Start Date End Date Nathan Hathaway DO [address] [place] [address] PCP - General Internal Medicine 02/10/25 Control System Computer Scientist Relationship Specialty Start Date End Date Nathan Hathaway DO [address] [place] [address] PCP - General Internal Medicine 03/09/25 Team [...] Provider Active Start: March 18, 2025 Nathan Hathaway DO Attending Provider Active [...] AUTHOR AUTHOR'S ORGANIZ ATION 03/11/2023 [facility] DATE CREATED AUTHOR AUTHOR'S ORGANIZ ATION 11/08/2023 [facility] DATE CREATED AUTHOR AUTHOR'S ORGANIZ ATION 02/14/2025 [facility] DATE CREATED AUTHOR AUTHOR'S ORGANIZ ATION 02/26/2025 [facility] EPIC DATE CREATED AUTHOR AUTHOR'S ORGANIZ ATION 03/26/2025 [facility] DATE CREATED AUTHOR AUTHOR'S ORGANIZ ATION 03/26/2025 [facility] Goals (unrecognized section and content) Goals [...] THE PRIMARY CLINICAL RECORDS. [facility] [employer] provides no warranty or guarantee of the accuracy or completeness of information in this document.
[2025-06-24 09:41] LABS: Microalbum Creatinine Ratio Ur 237.8 mg/g (0.0-29.9)
== END 2025-06-24 09:28 | disposition home or self-care (01) ==
LOC: LAB 09:27
PROVIDERS: PCP Internal Medicine; Visit Provider Internal Medicine
DX: D64.9 Anemia, unspecified (principal); N18.32 Chronic kidney disease, stage 3b; D89.2 Hypergammaglobulinemia, unspecified; I25.10 Atherosclerotic heart disease of native coronary artery without angina pectoris; E78.00 Pure hypercholesterolemia, unspecified; E04.1 Nontoxic single thyroid nodule; I12.9 Hypertensive chronic kidney disease with stage 1 through stage 4 chronic kidney disease, or unspecified chronic kidney disease
CPT/HCPCS: 82043; 82570

== ENCOUNTER 2025-08-10 05:39 | Inpatient (IN) | payer MEDICARE, SELFPAY ==
[2025-08-10] VITALS (21 sets, daily range): BP systolic 159–202; BP diastolic 56–74; PULSE 56–92; TEMP 36.3–36.9; O2SAT 88–97; BMI 32.2
--- NOTE | 2025-08-10 05:56 | ED.SOB1 ---
HPI - SOB/Dyspnea General Chief Complaint: Shortness of Breath/Dyspnea Stated Complaint: SHORTNESS OF BREATH Time Seen by Provider: 08/10/25 05:44 Source: patient Mode of arrival: Wheelchair Limitations: no limitations History of Present Illness HPI Narrative: This 84-year-old female with a remote history of tobacco use, 50 years ago, presents for evaluation of shortness of breath that started during the night. She states she was up and down all night trying to catch her breath. She thought she could wait until her doctors office opened this morning but she could not. She is not having any fever or cough. She denies any chest pain. She has no back pain. She has no abdominal pain. She has chronic lower extremity pain and is currently seeing Dr. Coyle at [facility] for a vascular work up. She states she was taken off of her furosemide in the past but gained 3 pounds recently and talk to her pharmacist who thought it would be okay if she went back on her Lasix. She said the swelling in her legs that was present for the past several days has improved. She also states that contractors have been working on her house to remove black mold so there is a lot of particulate matter in the air that she has to breathe. This has been going on for several months apparently. Related Data Home Medications ?Medication ?Instructions ?Recorded ?Confirmed alprazolam 0.25 mg tablet 0.25 mg PO BID PRN anxiety 04/11/23 08/10/25 gabapentin 100 mg capsule 100 mg PO Q12H 04/11/23 08/10/25 temazepam 15 mg capsule (Restoril) 15 mg PO .hs PRN sleep 04/11/23 08/10/25 clopidogrel 75 mg tablet 75 mg PO DAILY 07/27/23 08/10/25 potassium chloride 10 mEq 10 meq PO DAILY 02/18/24 08/10/25 tablet,extended release rosuvastatin 40 mg tablet 40 mg PO DAILY 02/18/24 08/10/25 bumetanide 1 mg tablet 1 mg PO BID 08/10/25 08/10/25 pantoprazole 40 mg tablet,delayed 40 mg PO .QD 08/10/25 08/10/25 release umeclidinium 62.5 mcg-vilanterol 1 inh inhalation Q24H 08/10/25 08/10/25 25 mcg/actuation powdr for inhalation (Anoro Ellipta) valsartan 80 mg tablet 80 mg PO .QD 08/10/25 08/10/25 Previous Rx's ?Medication ?Instructions ?Recorded nifedipine 30 mg tablet,extended 30 mg PO Q24H 30 days #30 tabs 02/20/24 release 24 hr Allergies Allergy/AdvReac Type Severity Reaction Status Date / Time azithromycin Allergy Severe Verified 09/28/23 14:15 amlodipine Allergy Verified 07/27/23 02:13 doxycycline Allergy Verified 07/27/23 02:13 duloxetine (From Cymbalta) Allergy Verified 07/27/23 02:13 ondansetron (From Zofran) Allergy Verified 07/27/23 02:13 sulfamethoxazole (From Allergy Verified 07/27/23 02:13 Bactrim) tetanus and diphtheria Allergy Verified 07/27/23 02:13 toxoids trimethoprim (From Bactrim) Allergy Verified 07/27/23 02:13 codeine AdvReac Severe Anxiety Verified 09/25/23 11:07 Review of Systems ROS Status of ROS 10 or more systems reviewed and unremarkable except as noted in history and below PFSH [facility] Medical History Chronic heart failure with preserved ejection fraction (HFpEF) ?I50.32 - Chronic diastolic (congestive) heart failure (ICD-10) Peripheral neuropathy ?G62.9 - Polyneuropathy, unspecified (ICD-10) Peripheral edema ?R60.0 - Localized edema (ICD-10) HTN (hypertension) ?I10 - Essential (primary) hypertension (ICD-10) GERD (gastroesophageal reflux disease) ?K21.9 - Gastro-esophageal reflux disease without esophagitis (ICD-10) Pneumonia due to COVID-19 virus ?U07.1 - COVID-19 (ICD-10) ?J12.82 - Pneumonia due to coronavirus disease 2019 (ICD-10) COVID-19 ?U07.1 - COVID-19 (ICD-10) Obesity ?E66.9 - Obesity, unspecified (ICD-10) Coronary artery disease ?I25.10 - Atherosclerotic heart disease of [place] coronary artery without angina pectoris (ICD-10) Surgical History H/O: hysterectomy ?Z90.710 - Acquired absence of both cervix and uterus (ICD-10) Stented coronary artery ?Z95.5 - Presence of coronary angioplasty implant and graft (ICD-10) Family History Brother Family history of diabetes mellitus Family history of cancer Sister Family history of cancer Social History Within the past year, how often did you have a drink containing alcohol: never Within the past year, how often did you have six or more drinks on one occasion: never Score interpretation: A score less than 3 is consistent with normal alcohol consumption. 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 [employer] Known occupational exposures/hazards: No Highest level of school completed/degree received: 11th grade Do you want help with school or training: No Are you now , , , , never or living with a partner: In a typical week, how many times do you talk on the telephone with family, friends, or neighbors: 3 or more times per week How often do you get together with friends or relatives: twice per week How often do you attend sabianism or buddhist services: 4 or more times per year Do you belong to any clubs or organizations such as sabianism groups unions, fraternal or athletic groups, or school groups: yes Total score: 4 Score interpretation: A score of greater than or equal to 2 indicates the lowest level of social isolation. Little interest or pleasure in doing things: not at all Feeling down, depressed, or hopeless: not at all Feel stressed/tense/nervous/anxious/difficulty sleeping: only a little Due to disability, difficulty making decisions: No Do you think of yourself as: straight/heterosexual Gender Identity: female Exam Narrative Exam Narrative: Vital signs and Nursing Notes reviewed: Patient is afebrile with normal pulse, blood pressure is elevated at 202/64, she was hypoxic in the 80s upon arrival and placed on 2 L nasal cannula with clinical improvement to a pulse ox of 97% on 2 L nasal cannula General: Awake, alert, oriented, no acute distress, lying comfortably on the stretcher HEENT: Normocephalic atraumatic, mucous membranes are moist and pink, eyes are clear, normal conjunctiva, vision is grossly intact, posterior pharynx is normal in appearance. Neck: Supple, no meningeal signs, no JVD Chest: Faint bilateral expiratory wheezing noted, no rhonchi or rales appreciated, no accessory muscle use, patient is speaking in complete sentences but was noted to be hypoxic at triage CVS: Regular rate and rhythm S1-S2, no murmurs rubs or gallops, pulses are brisk and equal bilaterally ABD: Soft, nondistended, nontender, no rebound guarding or rigidity, bowel sounds are normal, no pulsatile masses appreciated Extremities: Moving all extremities, 1+ edema of the lower extremities bilaterally with chronic skin changes from the knees to the feet bilaterally with multiple small inflamed blood vessels that appear to be a vasculitis, there is no calf swelling or tenderness appreciated Skin: Normal in appearance with chronic appearing hypertrophic color changes in the lower extremities bilaterally Neuro: No focal deficits Constitutional Vital Signs, click to edit/add: Last Vital Signs Temp 97.8 F 08/11/25 00:00 Pulse 68 08/11/25 00:02 Resp 18 08/11/25 00:00 BP 137/74 08/11/25 00:00 Pulse Ox 90 L 08/11/25 00:00 O2 Del Method Room Air 08/11/25 00:00 O2 Flow Rate 2 08/10/25 12:36 Course Vital Signs Vital signs: Vital Signs Temperature 98.5 F 08/10/25 05:43 Pulse Rate 76 08/10/25 05:43 Respiratory Rate 20 08/10/25 05:43 Blood Pressure 202/64 H 08/10/25 05:43 Pulse Oximetry 88 L 08/10/25 05:43 Oxygen Delivery Method Room Air 08/10/25 05:43 Temperature 97.8 F 08/11/25 00:00 Pulse Rate 68 08/11/25 00:02 Respiratory Rate 18 08/11/25 00:00 Blood Pressure 137/74 08/11/25 00:00 Pulse Oximetry 90 L 08/11/25 00:00 Oxygen Delivery Method Room Air 08/11/25 00:00 Oxygen Delivery Flow Rate 2 08/10/25 12:36 MDM - SOB/Dyspnea MDM Narrative Medical decision making narrative: This 84-year-old female with a history of tobacco use over 50 years ago presents for evaluation of shortness of breath. She states she has been told she has COPD due to her remote history of smoking. She also has contractors working on her house right now due to mold. The patient does have a history of heart failure/fluid overload and states that she recently gained 3 pounds. She took Lasix yesterday with clinical improvement. She has chronic lower extremity pain and is being worked up by vascular surgery in [place]. She has not had any fever. She denies any chest pain. She has no abdominal pain. EKG done upon arrival was a sinus rhythm at 73 bpm with no acute findings. This was compared to a prior EKG and is essentially unchanged. An IV was placed and she was given a DuoNeb treatment for faint expiratory wheezing. Cardiac workup was ordered. She has a normal white count and is mildly anemic with a hemoglobin of 8.7. Platelet count is normal at 274. She was signed out to the incoming physician at 7am pending labs and re-evaluation Medical Records Attestation: I reviewed the patient's medical records. Lab Data Attestation: I reviewed the patient's lab results. Labs: Lab Results 08/10/25 08/10/25 Range/Units 06:15 08:28 WBC 6.2 (4.0-11.0) 10^3/uL RBC 3.00 L (4.20-5.40) 10^6/uL Hgb 8.7 L (12.0-16.0) g/dL Hct 25.9 L (36.0-48.0) % MCV 86.3 (81.0-99.0) fL MCH 29.0 (26.7-34.0) pg MCHC 33.6 (29.9-35.2) g/dL RDW 13.2 (11.0-15.0) % Plt Count 274 (150-450) 10^3/uL MPV 9.9 (9.5-13.5) fL Neut % (Auto) 74.4 (43.0-75.0) % Lymph % (Auto) 14.4 L (20.5-60.0) % [place] % (Auto) 8.1 (1.7-12.0) % Eos % (Auto) 2.1 (0.9-7.0) % Baso % (Auto) 0.5 (0.2-2.0) % Neut # (Auto) 4.6 (1.4-6.5) 10^3/uL Lymph # (Auto) 0.9 L (1.2-3.8) 10^3/uL [place] # (Auto) 0.5 (0.3-0.8) 10^3/uL Eos # (Auto) 0.1 (0.0-0.7) 10^3/uL Baso # (Auto) 0.0 (0.0-0.1) 10^3/uL Abs Immat Gran (auto) 0.03 (0.00-0.03) 10^3/uL Imm/Tot Granulo (auto) 0.5 (0.0-0.5) % Sodium 141 (136-145) mmol/L Potassium 3.8 (3.5-5.1) mmol/L Chloride 102 (98-107) mmol/L Carbon Dioxide 26.6 (21.0-32.0) mmol/L Anion Gap 16.2 BUN 34.0 H (7.0-18.0) mg/dL Creatinine 1.36 H (0.55-1.02) mg/dL Est GFR ( Amer) 45 L (>=60 mL/min/1.73m^2) Est GFR (Non-Af Amer) 37 L (>=60 mL/min/1.73m^2) BUN/Creatinine Ratio 25.0 Glucose 116 H (74-106) mg/dL Lactate 0.8 (0.4-2.0) mmol/L Calcium 8.6 (8.5-10.1) mg/dL Total Bilirubin 0.4 (0.2-1.0) mg/dL AST 20 (15-37) U/L ALT 19 (14-59) U/L Alkaline Phosphatase 46 (46-116) U/L Troponin I High Sens 17.5 (4.0-51.3) pg/mL NT-Pro-B Natriuret Pep 1378.0 (<=1800.0) pg/mL Total Protein 6.3 L (6.4-8.2) g/dL Albumin 3.1 L (3.4-5.0) g/dL Globulin 3.2 g/dL Albumin/Globulin Ratio 1.0 Urine Color Lt. yellow (YELLOW) Urine Clarity Clear (CLEAR) Urine pH 6.0 (5.0-9.0) Ur Specific [place] 1.010 (1.005-1.025) Urine Protein 100 A (NEG/TRACE) mg/dL Urine Glucose (UA) Negative (NEGATIVE) mg/dL Urine Ketones Negative (NEGATIVE) mg/dL Urine Occult Blood Large A (NEGATIVE) Urine Nitrite Negative (NEGATIVE) Urine Bilirubin Negative (NEGATIVE) Urine Urobilinogen 0.2 (0.2-1.0) EU/dL Ur Leukocyte Esterase Trace A (NEGATIVE) Urine RBC 50-75 A (0-2) #/HPF Urine WBC 0-2 A (NONE SEEN) #/HPF Ur Squamous Epith Cells Few A (NONE/RARE) #/LPF Urine Crystals None seen (None Seen) #/HPF Urine Bacteria Trace A (NONE SEEN) #/HPF Urine Casts None seen (NONE SEEN) #/LPF Urine Mucus None seen (NONE SEEN) Ur Culture Indicated? No ECG Data Attestation: I personally reviewed and interpreted this ECG as follows: (Sinus rhythm at 73 bpm, normal axis, normal intervals, no acute ST segment elevation or T wave inversion) Discharge Plan Discharge Chief Complaint: Shortness of Breath/Dyspnea Clinical Impression: Congestive heart failure Patient Disposition: Admitted As Inpatient Time of Disposition Decision: 07:31 Condition: Fair Discharge Date/Time: 08/10/25 09:32
--- NOTE | 2025-08-10 05:57 | XR_ITS ---
The [address] [address] Patient Name: LASHAUN JOAQUIN MRN: [id number] date: 1940 Sex: F Assigned Patient Location: ER Current Patient Location: ED.MAIN Accession/Order Number: [id number] Exam Date: 08/10/2025 06:15 Report Date: 08/10/2025 08:23 At the request of: TONIA LOPEZ MD Procedure: XR chest 1V Single view chest: CLINICAL HISTORY: SOB COMPARISON: Chest 02/18/2024 FINDINGS: Cardiomegaly with vascular congestion which appears to have progressed since the prior study. No pneumothorax or free air. XR/XR chest 1V IMPRESSION: INCREASED VASCULAR CONGESTION. DEVELOPING PULMONARY EDEMA CANNOT BE EXCLUDED. Impression dictated by: Epifanio Lyon Jr. DManuelOManuel 08/10/2025 8:23 AM Dictation Location: [place] [address] Electronically authenticated by: [id number] Y Date: 08/10/2025 08:23
--- NOTE | 2025-08-10 05:57 | ECG_ITS ---
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 Measurements Intervals [place] Rate: 73 P: 64 NC: 154 QRS: 62 QRSD: 80 T: 61 QT: 400 QTc: 426 Interpretive Statements 1100 Sinus rhythm 9110 normal ECG Compared to ECG 02/18/2024 14:32:46 No significant changes Electronically Signed On 08-10-2025 6:10:51 EDT by MASSIEL STEPHENSON M.D.
--- OUTSIDE RECORDS SUMMARY | 2025-08-10 06:22 | XMS_ITS | CCD ---
Author Organization [facility] CliniSymn Care Team Providers Care Architecture Department Chair Name Role Phone Nathan Hathaway DO Primary Care Provider Nathan Hathaway Unavailable Unavailable Unavailable DR NATHAN HATHAAWY Primary Care Unavailable LIZZETTE, DR BRISSA Doherty Consulting Unavailabl e TYLER, DR KOFI Kat Admitting Unavailable NADEREBeth, DR KOFI Kat Attending Unavailable NADERER, DR KOFI Kat Consulting Unavailable MAKENNA, LUCIANA Consulting Unavailable SAHU, ANTONIO Consulting Unavailable ABRAMES, EDWARD Michelle Consulting Unavailable BALL, DR EVANS Attending Unavailable BALL, DR EVANS Consulting Unavailable BALL, DR EVANS Admitting Unavailable BALL, DR EVANS Primary Care Unavailable JORGE, DR WILLIAM Jackson Consulting Unavailable BALL, DR EVANS Attending Unavailable BALL, DR EVANS Admitting Unavailable BALL, DR EVANS Primary Care Unavailable BALL, DR EVANS Consulting Unavailable BALL, DR EVANS Admitting Unavailable BALL, DR EVANS Primary Care Unavailable BALL, DR EVANS Consulting Unavailable BALL, DR EVANS Attending Unavailable BALL, DR EVANS Attending Unavailable BALL, DR EVANS Consulting Unavailable BALL, DR EVANS Admitting Unavailable BALL, DR EVANS Primary Care Unavailable JORGE, DR WILLIAM Jackson Consulting Unavailable BALL, DR EVANS Attending Unavailable BALL, DR EVANS Consulting Unavailable BALL, DR EVANS Admitting Unavailable BALL, DR EVANS Primary Care Unavailable JORGE, DR WILLIAM Jackson Consulting Unavailable BALL, DR EVANS Attending Unavailable BALL, DR EVANS Consulting Unavailable BALL, DR EVANS Admitting Unavailable BALL, DR EVANS Primary Care Unavailable DO Jonna Perry Attending Provider DO Nathan Hathaway Primary Care Provider Nathan Hathaway Unavailable [place], Dr. Edinson Hinojosa Attending Darleneva jen Hathaway, Dr. Nathan Maxwell Primary Care Ericka Perry, Dr. Edinson Hinojosa Attending Aura Perry, Dr. Edinson Hinojosa Referring Aura Hathaway, Dr. Nathan Maxwell Primary Care Unavai lable Ch, DO Fernando Emergency Provider DO Lj Ryan Admit Provider Connor, DO Lj Wagoner Attending Provider Fransico REILLY, Nathan Whitlock Primary Care Provider Fransico REILLY, Nathan Whitlock Primary Care Provider Ball, DO Evans Primary Care Provider THONY Rosado Attending Provider Fransico DO, Nathan Whitlock Primary Care Provider Nathan Hathaway MD Unavailable Fransico REILLY, Nathan Primary Care Provider Fransico REILLY, Nathan Attending Provider [phone] Nathan Hathaway DO Primary Care Provider Fransico REILLY, Nathan Primary Care Provider Fransico REILLY, Nathan Attending Provider Nathan Hathaway MD Primary Care Provider Nathan Hathaway Primary Care Unavailable Nathan Hathaway Attending Unavailable Nathan Hathaway Admitting Unavailable Nathan Hathaway Primary Care Unavailable Jorge L Cruz Admitting Unavailable Jorge L Cruz Attending Unavailable Nathan Hathaway Primary Care Unavailable Holden Rosado Admitting Unavailable Holden Rosado Attending Unavailable Nathan Hathaway DO Primary Care Provider REYNA ESPARZA Attending Unavailable NATHAN HATHAWAY Referring Unavailable REYNA ESPARZA Attending Unavailable FERCHO TSE Attending Unavailable Nathan Hathaway DO Primary Care Provider Fransico REILLY, Nathan Primary Care Provider KeJorge L whyte DO Emergency Provider [phone] HOLDEN ROSADO Attending Unavailable EDINSON PERRY Referring Unavailable BALLNATHAN Primary Care Unavailable EDINSON PERRY Attending Unavailable HOLDEN ROSADO Referring Unavailable BALLNATHAN Primary Care Unavailable HOLDEN ROSADO Attending Unavailable EDINSON PERRY Referring Unavailable NATHAN HATHAWAY Primary Care Unavailable HOLDEN ROSADO Referring Unavailable BALL, NATHAN Whitlock Primary Care Unavailable HOLDEN ROSADO K Referring Unavailable BALLNATHAN Primary Care Unavailable Ball Nathan REILLY Primary Care Provider Fransico REILLY, Nathan Attending Provider [phone] Nathan Hathaway DO Primary Care Provider [phone] Fransico REILLY, Nathan Attending Provider [phone] BALL, NATHAN E Primary Care Unavailable SONJA PAOLO Attending Unavailable BALL, NATHAN E Primary Care Unavailable BALL, NATHAN E Referring Unavailable BALL, NATHAN E Primary Care Unavailable BALL, NATHAN E Referring Unavailable BALL, NATHAN E Primary Care Unavailable BALL, NATHAN E Referring Unavailable Fanny Bedoya APRN Attending Provider [phone] Valentin Leonard MD, V Attending Provider [phone] Shelbi CASTRO-C, Kaia Campos Attending Provider [phone] Allergies Allergy Classification Reported Allergen(s) Allergy Type Date of Onset Reaction(s) Facility (20 sources) amLODIPine; Translations: [AMLODIPINE] Drug Allergy 07-27-20 Unknown [facility] (12 sources) Codeine / guaiFENesin; Translations: [CODEINE-GUAIFENESI N] Drug Allergy 07-27-20 21 Unknown [facility] (12 sources) Doxycycline; Translations: [DOXYCYCLINE HYCLATE] Drug Allergy 07-27-20 21 Unknown [facility] (20 sources) DULoxetine; Translations: [DULOXETINE] Drug Allergy 07-27-20 21 Unknown [facility] (20 sources) levoFLOXacin; Translations: [LEVOFLOXACIN] Drug Allergy 07-27-20 21 Unknown [facility] (20 sources) Ondansetron; Translations: [ONDANSETRON] Drug Allergy 07-27-20 Unknown [facility] Comment on above: Onset Date: 10/29/19 20 (20 sources) Penicillins; Translations: [PENICILLINS] Propensity to adverse reactions to drug 07-27-20 21 Unknown [facility] (20 sources) Sulfamethoxazole / Trimethoprim; Translations: [Bactrim] Drug Allergy 07-27-20 Unknown, Hives [facility] (8 sources) Tetracycline (class of antibiotic); Translations: [TETRACYCLINES] Propensity to adverse reactions to drug 07-27-20 Unknown [facility] (12 sources) Iodine And Iodide Containing Products; Translations: [IODINE AND IODIDE CONTAINING PRODUCTS] Drug Allergy 01-20-20 21 Unknown [facility] (20 sources) Tetanus And Diphtheria Toxoids; Translations: [TETANUS AND DIPHTHERIA TOXOIDS] Propensity to adverse reactions to drug 07-27-20 21 Unknown [facility] (20 sources) Amoxicillin Drug Allergy 02-01-20 24 Unknown, Unknown Reaction [facility] (20 sources) Codeine / guaiFENesin Drug Allergy Unknown Poxel Other (20 sources) Doxycycline Drug Allergy 12-09-19 19 Unknown, Unknown Reaction [facility] (20 sources) levoFLOXacin Drug Allergy Unknown Poxel Other (20 sources) Ondansetron; Translations: [Zofran] Drug Allergy 11-05-19 Unknown [facility] (20 sources) Tetanus-Diphtheria Toxoids Td Drug allergy Unknown Travel Notes [facility] [employer] Other (20 sources) Allopurinol Drug Allergy 11-05-19 24 Unknown [facility] (1 source) amLODIPine Drug Allergy 11-05-19 20 [facility] (1 source) Doxycycline Drug Allergy [facility] (1 source) DULoxetine Drug Allergy 11-05-19 20 [facility] (1 source) Iodine (And Iodine Containting Drugs) Drug allergy (disorder) 01-20-20 21 [facility] (1 source) Sulfamethoxazole / Trimethoprim Drug Allergy 11-05-19 20 [facility] (9 sources) Sulfonamides (Antibiotic); Translations: [SULFA (SULFONAMIDE ANTIBIOTICS)] Allergy to substance 03-08-20 23 Rash, Unknown [facility] (16 sources) Sulfamethoxazole Drug Allergy 03-09-20 23 Unknown Reaction [facility] (8 sources) Trimethoprim; Translations: [TRIMETHOPRIM] Drug Allergy 03-09-20 23 Unknown [facility] (20 sources) Pseudoephedrine; Translations: [PSEUDOEPHEDRINE] Drug Allergy 10-29-19 Unknown [facility] Other (20 sources) Tetracycline Drug Allergy Unknown Poxel Other (20 sources) Cheratussin AC *COUGH/COLD/ALLERGY * Propensity to adverse reactions 10-29-19 Unknown [facility] Other (20 sources) Zofran *ANTIEMETICS* Propensity to adverse reactions 10-29-19 Unknown Travel Notes [facility] [employer] Other (5 sources) amLODIPine Drug Allergy Unknown Poxel Other (20 sources) Azithromycin; Translations: [AZITHROMYCIN] Drug Allergy 10-17-20 rash, Swelling [facility] (20 sources) Codeine Drug Allergy 02-01-20 Unknown Reaction [facility] (15 sources) guaiFENesin Drug Allergy 02-01-20 24 Unknown Reaction [facility] (15 sources) 12 Hour Decongestant Allergy to substance 02-01-20 Unknown Reaction [facility] Comment on above: Onset Date: 10/29/19 (15 sources) Cheratussin AC *COUGH/COLD/ALL Allergy to substance 02-01-20 Unknown Reaction [facility] Comment on above: Free Text Allergy: C heratussin AC *COUGH/COLD/ALLERGY*; Onset Date: 10/29/2019 (8 sources) Penicillins Drug Intolerance 07-27-20 21 [facility] (4 sources) Penicillins Propensity to adverse reactions to drug 07-27-20 21 Unknown [facility] (4 sources) Tetracyclines Propensity to adverse reactions to drug 07-27-20 21 Unknown [facility] (1 source) Allopurinol; Translations: [ALLOPURINOL] Drug Allergy 11-05-19 [facility] Rep[facility] Medications Current Medications Medication Drug Class(es) Dates Sig (Normalized) Sig (Original) AeroChamber Mini Chamber - (5 sources) Start: 04-20-2023 AeroChamber Mini Chamber - Use with MDI every 6 hours as needed inhaled every 6 hours as needed for 30 days Mar, Active [id number] 200 actuat albuterol 0.09 mg/actuat metered dose [...] formoterol fumarate 0.0045 mg/actuat metered dose inhaler (20 sources) Corticosteroid, beta2-Adrenergic Agonist Start: 12-31-2024 take [...] take 2 puff(s) by inhalation twice daily Brekennethtri Aerosphere 160-9-4.8 MCG/ACT 2 puffs Inhalation Twice a day Sample Apr, Active bumetanide 1 mg oral tablet (7 sources) Loop Diuretic Start: 07-06-2025 take 1 tablet by mouth twice daily Bumetanide 1 mg tablet Active 1 MG PO Twice daily 60 July 06, 2025 6:16pm Complies with drug therapy Start: 06-19-2025 End: 07-06-2025 take 1 tablet by mouth twice daily Bumetanide 0.5 mg tablet Discontinued 0.5 MG PO Twice daily 60 July 03, 2025 12:14pm July 06, 2025 6:18pm clopidogrel 75 mg oral tablet (20 sources) [id number] Platelet Inhibitor Start: 07-07-2025 take 1 tablet by mouth once daily Clopidogrel 75 mg tablet Active 0 .ROUTE .COMPLEX 90 July 07, 2025 7:34am TAKE 1 TABLET BY MOUTH DAILY Complies with drug therapy Start: 05-09-2023 End: 10-08-2025 take 1 tablet by mouth once daily Clopidogrel 75 mg tablet Discontinued 75 MG PO Daily May 17, 2023 12:00am June 16, 2024 11:42am Start: 05-09-2023 End: 10-08-2024 clopidogrel (PLAVIX) 75 mg t ablet TAKE 8 TABLETS BY MOUTH ON DAY ONE THEN TAKE 1 TABLET BY MOUTH DAILY 05/09/2023 Active Comment on above: TAKE 8 TABLETS BY MO UTH ON DAY ONE THEN TAKE 1 TABLET BY MOUTH DAILY codeine phosphate 2 mg/ml / guaiFENesin 20 mg/ml oral solution (6 sources) Opioid Agonist Start: take 10 mL by mouth four times daily as needed for cough guaiFENesin-Codein e 100-10 MG/5ML 10 mL as needed Orally qid as needed for cough for 7 days Aug, Active enteric contrast (will be provided with radiology test) (1 source) Start: 2 End: enteric contrast (will be provided with radiology [...] capsule (20 sources) Anti-epileptic Agent Start: 08-15-2024 End: 07-07-2025 take 1 capsule by mouth twice daily Gabapentin 100 mg capsule Active 0 .ROUTE .COMPLEX 180 July 07, 2025 7:34am TAKE 1 CAPSULE BY MOUTH TWICE DAILY Complies with drug therapy Start: 03-08-2023 End: 08-15-2024 take 1 capsule by mouth three times daily Gabapentin 100 mg capsule Discontinued 100 MG PO Twice daily March 08, 2023 12:00am August 15, 2024 9:28am may take tid if needed take 100 mg by mouth twice daily GABAPENTIN ORAL Take 100 mg by mouth twice daily. Active take 1 capsule by [facility] every twenty-four hours Gabapentin 100 MG 1 capsule Orally Once a day Active Comment on above: Take 100 mg by mouth twice daily. iv contrast (will be provided with radiology test) (1 source) Start: End: 08-02-2 022 iv contrast (will be provided with radiology [...] in the CT contrast administration guidelines link. nitrofurantoin, macrocrystals 25 mg / nitrofurantoin, monohydrate [...] extended release oral tablet (20 sources) Start: 04-26-2023 take 1 tablet by mouth twice daily potassium chloride (K-TAB) 10 mEq tablet Take 10 mEq by mouth two times a day. 04/26/2023 Active Start: 03-08-2023 take 1 tablet by tina th once daily Potassium Chloride 10 mEq tablet extended release Active 10 MEQ PO Daily February 12, 2025 12:00am Complies with drug therapy Start: 03-08-2023 End: 04-22-2024 Potassium Chloride 10 mEq ta blet extended release Discontinued 10 MEQ PO EVERY 3 WEEKS March 08, 2023 12:00am April 22, 2024 1:22pm 3 times a week on even days take 1 tablet by tina th at [...] day for 14 days Mar, Active Umeclidinium-Vilanterol (20 sources) Anticholinergic, beta2-Adrenergic Agonist Start: 05-19-2025 Start: 05-19-2025 Umeclidinium-V ilanterol (Anoro Ellipta) 62.5-25 mcg/actuation blister with device [...] 2025 11:38am valsartan 80 mg oral tablet (17 sources) Angiotensin 2 Receptor Humaira Start: 10-08-2024 End: 10-08-2025 take 1 tablet by mouth once daily Valsartan 80 mg tablet Active 80 MG PO Daily 90 June 19, 2025 3:16pm Complies with drug therapy {20 (nirmatrelvir 150 [...] needed. ascorbic acid 500 mg oral tablet (17 sources) Vitamin C Start: 3 End: 3 take 1 tablet by mouth once daily Ascorbic Acid (Vitamin C) (Vitamin C) 500 mg Tablet Discontinued 500 MG PO Daily March 08, 2023 12:00am May 17, 2023 10:50am aspirin 81 mg oral tablet (20 sources) Platelet Aggregation Inhibitor, Nonsteroidal Anti-inflammatory Drug Start: 3 End: 5 take 1 capsule by mouth once daily Aspirin 81 mg capsule Discontinued 81 MG PO Daily February 12, 2025 12:00am March 19, 2025 11:46am Start: 03-07-2023 End: 01-12-2025 take 1 tablet [...] oral capsule (20 sources) Non-narcotic Antitussive Start: 4 take 1 capsule by mouth every eight hours Benzonatate 100 MG 1 capsule as needed Orally Three times a day for As needed for cough or wheeze February, Not-Taking busPIRone (20 sources) busPIRone HCl Not-Taking Calcium Carbonate (9 sources) End: 5 calcium carbonate (CALCIUM 600 ORAL) Take by mouth. 07/08/2025 Discontinued (Discontinued by another Health Care Provider) calcium carbonat e (CALCIUM 600 ORAL) Take by mouth. Active calcium carbonat e (CALCIUM 600 ORAL) Take by mouth. 0 Active Comment on above: Take by mouth. calcium carbonate 1500 mg / cholecalciferol 0.01 mg oral tablet (17 sources) Vitamin D Start: 3 End: 3 take 1 tablet by mouth once daily Calcium Carbonate-Vitamin D3 (Calcium 600 + D(3)) 600 mg-10 mcg (400 unit) Tablet Discontinued 1 TAB PO Daily March 08, 2023 12:00am May 17, 2023 10:50am carvedilol 3.125 mg oral tablet (20 sources) alpha-Adrenergic Humaira, beta-Adrenergic Humaira Start: 4 End: 5 carvedilol (Coreg) 3.125 MG tablet 04/20/2024 11/25/2024 [...] 120 systolic at home Start: 05-18-2023 End: 07-08-2025 take 1 tablet by mouth twice daily [...] WITH FOOD/MEAL cefdinir 300 mg oral capsule (18 sources) Cephalosporin Antibacterial Start: End: take 1 [...] tablet Discontinued 20 MG PO Twice daily December 23, 2024 2:16pm February 12, 2025 [...] Angiotensin 2 Receptor Humaira Start: 11-28-2022 End: 07-08-2025 take 1 tablet by mouth once daily in the morning Irbesartan 150 mg tablet Discontinued 150 MG PO Every morning March 08, 2023 12:00am February 27, 2024 10:37am take 1 tablet by mouth twice hair ly Irbesartan 150 MG 1 tablet Orally twice daily Active levothyroxine sodium 0.075 mg oral tablet (16 sources) l-Thyroxine Start: 02-19-2024 End: 11-25-2024 take [...] 1 tablet Orally twice daily May, Active End: 07-08-2025 take 1 tablet by mouth once daily losartan (COZAAR) 100 mg tablet Take 100 mg by mouth once daily. 07/08/2025 Discontinued (Discontinued by another Health Care Provider) take 1 tablet by tina th once daily Losartan Potassium 50 MG 1 tablet Orally Once a day for 90 days Active Comment on above: Take 100 mg by mouth once daily. MULTI-VITAMIN ORAL (9 sources) End: 07-08-2025 MULTI-VITAMIN ORAL Take by mouth. 07/08/2025 Discontinued (Discontinued by another Health Care Provider) MULTI-VITAMIN OR AL Take by mouth. Active MULTI-VITAMIN OR AL Take by mouth. 0 Active Comment on above: Take by mouth. Multivitamin preparation (7 sources) Start: 03-08-2023 End: 05-17-2023 take 1 tablet by mouth once daily Multivitamin Discontinued 1 TAB PO Daily March 08, 2023 12:00am May 17, 2023 10:50am Start: 03-08-2023 take 1 tablet by tina th once daily Multivitamin Active 1 TAB PO Daily March 08, 2023 12:00am Multivitamin Tablet (10 sources) Start: 03-08-2023 End: 05-17-2023 take 1 [...] tablet by tina th every twenty-four hours NIFEdipine ER (PROCARDIA XL) 30 mg 24 hr tablet Take 30 mg by mouth. 02/20/2024 Active 24 hr nitroglycerin 0.2 mg/hr transdermal system (19 sources) Nitrate Vasodilator Start: 03-08-2023 End: 05-17-2023 [...] Start : 07-Mar-2023 Active new start nystatin [id number] unt/ml oral suspension (4 sources) Polyene Antifungal Start: 02-16-2025 End: 03-19-2025 [...] sources) HMG-CoA Reductase Inhibitor Start: 03-08-2023 End: 07-08-2025 take 1 tablet by mouth once daily [...] February, Not-Taking psyllium 400 mg oral capsule (4 sources) Start: 03-08-2023 End: 05-17-2023 Psyllium Husk [...] tablet (20 sources) Nonergot Dopamine Agonist Start: 11-23-2022 End: 07-08-2025 take 1 tablet by mouth once daily Ropinirole 0.25 mg tablet Discontinued 0.25 MG PO Daily 90 90 December 18, 2023 10:31am February 27, 2024 10:38am sacubitril 24 mg / valsartan 26 mg oral tablet (20 sources) Angiotensin 2 Receptor Humaira Start: 02-20-2024 End: 10-08-2024 take 1 tablet by mouth twice daily Sacubitril-Valsarta n (Entresto) 24-26 mg tablet Discontinued 1 TAB [...] as needed. ticagrelor 90 mg oral tablet (20 sources) Start: 03-09-2023 End: 05-17-2023 take 1 [...] unspecified] Onset: 08-17-2015 Episodic Chronic kidney disease (18 sources) Chronic kidney disease; Translations: [Chronic kidney [...] per request of Phys. EHR Cmte - LHC w/ PCI/stent L AD, RCA [...] Phys. EHR Cmte Deficiency and other anemia (1 source) Anemia of chronic disease; Translations: [Anemia in other chronic diseases classified elsewhere] 07-09-2025 Chronic Deficiency and other anemia (1 source) Anemia in other chronic diseases classified elsewhere; Translations: [Anemia in other chronic diseases classified elsewhere] Onset: 07-15-2025 Chronic Deficiency and other anemia (20 sources) Anemia; [...] Chronic Hypertension with complications and secondary hypertension (18 sources) Hypertensive heart disease with heart failure; [...] Onset: 05-24-2015 Chronic Other aftercare (1 source) residential (current) use of aspirin; Translations: [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 SERVICES 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 CURRENT USE OF ASPIRIN] Onset: 02-14-2023 Episodic Other aftercare (1 source) 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; Translations: [OTH OFFICE SERVICES ASSISTANT CURRENT DRUG THERAPY] Onset: 02-14-2023 Episodic Other and ill-defined heart disease (2 sources) Heart disease; Translations: [Heart disease, unspecified] 06-06-2023 Chronic Other and ill-defined heart disease (1 source) Heart disease, unspecified; Translations: [Heart disease] Onset: 07-08-2025 Chronic Other and unspecified benign neoplasm (20 [...] and neck] Episodic Other connective tissue disease (6 sources) Cramp in lower limb; Translations: [Sleep [...] with diarrhea] 01-31-2024 Chronic Other hematologic conditions (5 sources) Protein electrophoresis abnormal; Translations: [Other specified abnormalities of plasma proteins] Episodic Other hematologic conditions (2 sources) Other specified abnormalities of plasma proteins; Translations: [...] Phys. EHR Cmte Other lower respiratory disease (16 sources) Hypoxia; Translations: [Hypoxemia] 05-17-2023 Episodic Comment [...] right hip] Episodic Other non-traumatic joint disorders (11 sources) Pain in right knee; Translations: [Chronic [...] signs] Episodic Residual codes; unclassified (1 source) Edema; Translations: [Edema, unspecified] 07-09-2025 Episodic Respiratory failure; insufficiency; arrest (adult) (1 source) Acute respiratory failure with hypoxia; Translations: [ACUTE RESPIRATORY FAIL W/HYPOXIA] Onset: 02-14-2023 Episodic Respiratory failure; insufficiency; arrest (adult) (1 source) Respiratory failure; insufficiency; arrest (adult) Retinal detachments; defects; vascular occlusion; and retinopathy [...] Test Name Value Interpretation Reference Range Facility Basophils Auto (Bld) [#/Vol] Ordered By: Valentin Leonard on 07-15-2025 Basophils (Bld) [#/Vol] 0.05 10*3/uL <0.11 [facility] Basophils/100 WBC Auto (Bld) Ordered By: Valentin Leonard on 07-15-2025 Basophils/100 WBC (Bld) 0.8 % [facility] Blood manual differential co mment interpretation narrativeOrdered By: Valentin Leonard on 07-15-2025 Manual differential comment Arturo (Bld) [Interp] Auto [facility] CBC W Auto Differential pane l (Bld)on 07-15-2025 Basophils (Bld) [#/Vol] 0.05 10*3/uL Normal <0.11 [facility] Comment on above: Order Comment: Speci men Type: BLOOD SPECIMEN Ordering Facility: [facility] Address: [address] [place] [address] Performed By: #### 1 5061-5 #### [facility] CLIA [id number] [address] [place] [address] [place] Basophils/100 WBC (Bld) 0.8 % Normal [facility] Comment on above: Order Comment: Speci men Type: BLOOD SPECIMEN Ordering Facility: [facility] Address: [address] [place] [address] Performed By: #### 1 5061-5 #### [facility] CLIA [id number] [address] [place] [address] [place] Differential cell count method Nom (Bld) Auto Normal [facility] Comment on above: Order Comment: Speci men Type: BLOOD SPECIMEN Ordering Facility: [facility] Address: [address] [place] [address] Performed By: #### 1 5061-5 #### [facility] CLIA [id number] [address] [place] [address] [place] Eosinophils (Bld) [#/Vol] 0.16 10*3/uL Normal <0.46 [facility] Comment on above: Order Comment: Speci men Type: BLOOD SPECIMEN Ordering Facility: [facility] Address: [address] [place] [address] Performed By: #### 1 5061-5 #### [facility] CLIA [id number] [address] [place] [address] [place] Eosinophils/100 WBC (Bld) 2.5 % Normal [facility] Comment on above: Order Comment: Speci men Type: BLOOD SPECIMEN Ordering Facility: [facility] Address: [address] [place] [address] Performed By: #### 1 5061-5 #### [facility] CLIA [id number] [address] [place] [address] [place] Erythrocyte distribution width (RBC) [Ratio] 13.5 % Normal 11.5-15.0 [facility] Comment on above: Order Comment: Speci men Type: BLOOD SPECIMEN Ordering Facility: [facility] Address: [address] [place] [address] Performed By: #### 1 5061-5 #### [facility] CLIA [id number] [address] [place] [address] [place] Hematocrit (Bld) [Volume fraction] 27.6 % Low 36.0-46.0 [facility] Comment on above: Order Comment: Speci men Type: BLOOD SPECIMEN Ordering Facility: [facility] Address: [address] [place] [address] Performed By: #### 1 5061-5 #### [facility] CLIA [id number] [address] [place] [address] [place] Hemoglobin (Bld) [Mass/Vol] 8.9 g/dL Low 11.5-15.5 [facility] Comment on above: Order Comment: Speci men Type: BLOOD SPECIMEN Ordering Facility: [facility] Address: [address] [place] [address] Performed By: #### 1 5061-5 #### [facility] CLIA [id number] [address] [place] [address] [place] Immature granulocytes (Bld) [#/Vol] 0.03 10*3/uL Normal <0.10 [facility] Comment on above: Order Comment: Speci men Type: BLOOD SPECIMEN Ordering Facility: [facility] Address: [address] [place] [address] Performed By: #### 1 5061-5 #### [facility] CLIA [id number] [address] [place] [address] [place] Immature granulocytes/100 WBC (Bld) 0.5 % Normal [facility] Comment on above: Order Comment: Speci men Type: BLOOD SPECIMEN Ordering Facility: [facility] Address: [address] [place] [address] Performed By: #### 1 5061-5 #### [facility] CLIA [id number] [address] [place] [address] [place] Lymphocytes (Bld) [#/Vol] 0.77 10*3/uL Low 1.00-4.00 [facility] Comment on above: Order Comment: Speci men Type: BLOOD SPECIMEN Ordering Facility: [facility] Address: [address] [place] [address] Performed By: #### 1 5061-5 #### [facility] CLIA [id number] [address] [place] [address] [place] Lymphocytes/100 WBC (Bld) 12.3 % Normal [facility] Comment on above: Order Comment: Speci men Type: BLOOD SPECIMEN Ordering Facility: [facility] Address: [address] [place] [address] Performed By: #### 1 5061-5 #### [facility] CLIA [id number] [address] [place] [address] [place] MCH (RBC) [Entitic mass] 28.8 pg Normal 26.0-34.0 [facility] Comment on above: Order Comment: Speci men Type: BLOOD SPECIMEN Ordering Facility: [facility] Address: [address] [place] [address] Performed By: #### 1 5061-5 #### [facility] CLIA [id number] [address] [place] [address] [place] MCHC (RBC) [Mass/Vol] 32.2 g/dL Normal 30.5-36.0 [facility] Comment on above: Order Comment: Speci men Type: BLOOD SPECIMEN Ordering Facility: [facility] Address: [address] [place] [address] Performed By: #### 1 5061-5 #### [facility] CLIA [id number] [address] [place] [address] [place] MCV (RBC) [Entitic vol] 89.3 fL Normal 80.0-100.0 [facility] Comment on above: Order Comment: Speci men Type: BLOOD SPECIMEN Ordering Facility: [facility] Address: [address] [place] [address] Performed By: #### 1 5061-5 #### [facility] CLIA [id number] [address] [place] [address] [place] Monocytes (Bld) [#/Vol] 0.65 10*3/uL Normal <0.87 [facility] Comment on above: Order Comment: Speci men Type: BLOOD SPECIMEN Ordering Facility: [facility] Address: [address] [place] [address] Performed By: #### 1 5061-5 #### [facility] CLIA [id number] [address] [place] [address] [place] Monocytes/100 WBC (Bld) 10.4 % Normal [facility] Comment on above: Order Comment: Speci men Type: BLOOD SPECIMEN Ordering Facility: [facility] Address: [address] [place] [address] Performed By: #### 1 5061-5 #### [facility] CLIA [id number] [address] [place] [address] [place] Neutrophils (Bld) [#/Vol] 4.62 10*3/uL Normal 1.45-7.50 [facility] Comment on above: Order Comment: Speci men Type: BLOOD SPECIMEN Ordering Facility: [facility] Address: [address] [place] [address] Performed By: #### 1 5061-5 #### [facility] CLIA [id number] [address] [place] [address] [place] Neutrophils/100 WBC (Bld) 73.5 % Normal [facility] Comment on above: Order Comment: Speci men Type: BLOOD SPECIMEN Ordering Facility: [facility] Address: [address] [place] [address] Performed By: #### 1 5061-5 #### [facility] CLIA [id number] [address] [place] [address] [place] Nucleated RBC (Bld) [#/Vol] 10*3/uL Normal <0.01 [facility] Comment on above: Order Comment: Speci men Type: BLOOD SPECIMEN Ordering Facility: [facility] Address: [address] [place] [address] Performed By: #### 1 5061-5 #### [facility] CLIA [id number] [address] [place], [place] [address] [place] Nucleated RBC/100 WBC (Bld) [Ratio] 0.0 /100 WBC Normal [facility] Comment on above: Order Comment: Speci men Type: BLOOD SPECIMEN Ordering Facility: [facility] Address: [address] [place] [address] Performed By: #### 1 5061-5 #### [facility] CLIA [id number] [address] [place] [address] [place] Platelet mean volume (Bld) [Entitic vol] 9.9 fL Normal 9.0-12.7 [facility] Comment on above: Order Comment: Speci men Type: BLOOD SPECIMEN Ordering Facility: [facility] Address: [address] [place] [address] Performed By: #### 1 5061-5 #### [facility] CLIA [id number] [address] [place] [address] [place] Platelets (Bld) [#/Vol] 295 10*3/uL Normal 150-400 [facility] Comment on above: Order Comment: Speci men Type: BLOOD SPECIMEN Ordering Facility: [facility] Address: [address] [place] [address] Performed By: #### 1 5061-5 #### [facility] CLIA [id number] [address] [place] [address] [place] RBC (Bld) [#/Vol] 3.09 10*6/uL Low 3.90-5.20 [facility] Comment on above: Order Comment: Speci men Type: BLOOD SPECIMEN Ordering Facility: [facility] Address: [address] [place] [address] Performed By: #### 1 5061-5 #### [facility] CLIA [id number] [address] [place] [address] [place] WBC (Bld) [#/Vol] 6.28 10*3/uL Normal 3.70-11.00 [facility] Comment on above: Order Comment: Speci men Type: BLOOD SPECIMEN Ordering Facility: [facility] Address: [address] [place] [address] Performed By: #### 1 5061-5 #### [facility] CLIA [id number] [address] [place], [place] [address] [address] [place] [facility] [place] Comprehensive metabolic 2000 panelon 07-15-2025 Albumin [Mass/Vol] 3.7 g/dL Low 3.9-4.9 [facility] Comment on above: Order Comment: Speci men Type: BLOOD SPECIMEN Ordering Facility: [facility] Address: [address] [place] [address] Performed By: #### 2 4323-8 #### [facility] CLIA [id number] [address] [place] [address] ALP [Catalytic activity/Vol] 45 U/L Normal 34-123 [facility] Comment on above: Order Comment: Speci men Type: BLOOD SPECIMEN Ordering Facility: [facility] Address: [address] [place] [address] Performed By: #### 2 4323-8 #### [facility] CLIA [id number] [address] [place] [address] ALT [Catalytic activity/Vol] 10 U/L Normal 7-38 [facility] Comment on above: Order Comment: Speci men Type: BLOOD SPECIMEN Ordering Facility: [facility] Address: [address] [place] [address] Performed By: #### 2 4323-8 #### [facility] CLIA [id number] [address] [place] [address] Anion gap [Moles/Vol] 10 mmol/L Normal 8-15 [facility] Comment on above: Order Comment: Speci men Type: BLOOD SPECIMEN Ordering Facility: [facility] Address: [address] [place] [address] Performed By: #### 2 4323-8 #### [facility] CLIA [id number] [address] [place] [address] AST [Catalytic activity/Vol] 16 U/L Normal 13-35 [facility] Comment on above: Order Comment: Speci men Type: BLOOD SPECIMEN Ordering Facility: [facility] Address: [address] [place] [address] Performed By: #### 2 4323-8 #### [facility] CLIA [id number] [address] [place] [address] Bilirubin [Mass/Vol] 0.3 mg/dL Normal 0.2-1.3 [facility] Comment on above: Order Comment: Speci men Type: BLOOD SPECIMEN Ordering Facility: [facility] Address: [address] [place] [address] Performed By: #### 2 4323-8 #### [facility] CLIA [id number] [address] [place] [address] Calcium [Mass/Vol] 9.0 mg/dL Normal 8.5-10.2 [facility] Comment on above: Order Comment: Speci men Type: BLOOD SPECIMEN Ordering Facility: [facility] Address: [address] [place] [address] Performed By: #### 2 4323-8 #### [facility] CLIA [id number] [address] [place] [address] Chloride [Moles/Vol] 101 mmol/L Normal 98-107 [facility] Comment on above: Order Comment: Speci men Type: BLOOD SPECIMEN Ordering Facility: [facility] Address: [address] [place] [address] Performed By: #### 2 4323-8 #### [facility] CLIA [id number] [address] [place] [address] CO2 [Moles/Vol] 28 mmol/L Normal 22-30 [facility] Comment on above: Order Comment: Speci men Type: BLOOD SPECIMEN Ordering Facility: [facility] Address: [address] [place] [address] Performed By: #### 2 4323-8 #### [facility] CLIA [id number] [address] [place] [address] Creatinine [Mass/Vol] 1.64 mg/dL High 0.58-0.96 [facility] Comment on above: Order Comment: Speci men Type: BLOOD SPECIMEN Ordering Facility: [facility] Address: [address] [place] [id number] Performed By: #### 2 4323-8 #### [facility] CLIA [id number] [address] [place] [address] eGFRcr SerPlBld CKD-EPI 2020 31 mL/min/1.73m??? Low >=60 [facility] Comment on above: Order Comment: Speci men Type: BLOOD SPECIMEN Ordering Facility: [facility] Address: [address] [place] [address] Result Comment: Shoshana mated Glomerular Filtration Rate [...] #### [facility] CLIA [id number] [address] [place] [address] Glucose [Mass/Vol] 103 mg/dL High 74-99 [facility] Comment on above: Order Comment: Speci men Type: BLOOD SPECIMEN Ordering Facility: [facility] Address: [address] [id number] Result Comment: The [place] Diabetes Association (ADA) provides guidance for cutoff [...] Standards of Medical Care in Diabetes 2016, [place] [employer]. Diabetes Care. 2016.39(Suppl 1). Performed By: #### 2 4323-8 #### [facility] CLIA [id number] [address] [place] [address] Potassium [Moles/Vol] 4.7 mmol/L Normal 3.7-5.1 [facility] Comment on above: Order Comment: Speci men Type: BLOOD SPECIMEN Ordering Facility: [facility] Address: [address] [place] [address] Performed By: #### 2 4323-8 #### [facility] CLIA [id number] [address] [place] [address] Protein [Mass/Vol] 5.9 g/dL Low 6.3-8.0 [facility] Comment on above: Order Comment: Speci men Type: BLOOD SPECIMEN Ordering Facility: [facility] Address: [address] [place], [place] [address] Performed By: #### 2 4323-8 #### [facility] CLIA [id number] [address] [place] [address] Sodium [Moles/Vol] 139 mmol/L Normal 136-144 [facility] Comment on above: Order Comment: Speci men Type: BLOOD SPECIMEN Ordering Facility: [facility] Address: [address] [place] [address] Performed By: #### 2 4323-8 #### [facility] CLIA [id number] [address] [place] [address]22 Urea nitrogen [Mass/Vol] 32 mg/dL High 7-21 [facility] Comment on above: Order Comment: Speci men Type: BLOOD SPECIMEN Ordering Facility: [facility] Address: [address] [place] [address] Performed By: #### 2 4323-8 #### [facility] CLIA [id number] [address] [place] [address] EPO SerPl-aCncon 07-15-2025 Erythropoietin (EPO) Qn 26.4 mIU/mL High 2.6-18.5 [facility] Comment on above: Order Comment: Speci men Type: BLOOD SPECIMEN Ordering Facility: [facility] Address: [address] [place] [address] Performed By: #### 1 5061-5 #### [facility] CLIA [id number] [address] [place] [address] [place] Eosinophils/100 WBC Auto (Bl d)Ordered By: Valentin Leonard on 07-15-2025 Eosinophils/100 WBC (Bld) 2.5 % [facility] Erythrocyte distribution wid th Auto (RBC) [Ratio]Ordered By: Valentin Leonard on 07-15-2025 Erythrocyte distribution width (RBC) [Ratio] 13.5 % 11.5-15.0 [facility] Ferritin SerPl-mCncon 2024 Ferritin [Mass/Vol] 174.0 ng/mL Normal 14.7-205.1 [facility] Comment on above: Order Comment: Speci men Type: BLOOD SPECIMEN Ordering Facility: [facility] Address: [address] [place] [address] Performed By: #### 5 0190-8, 2284-8, 9, 2275-4 #### [facility] CLIA [id number] [address] [place] [address] [place] Folate SerPl-mCncon 07-15-20 25 Folate [Mass/Vol] 17.5 ng/mL Normal >4.7 [facility] Comment on above: Order Comment: Speci men Type: BLOOD SPECIMEN Ordering Facility: [facility] Address: [address] [place] [address] Performed By: #### 5 0190-8, 2284-8, 9, 6-4 #### [facility] CLIA [id number] [address] [place] [address] [place] Glomerular filtration rate [ Volume Rate/Area] in Serum, Plasma or Blood by CreatinineOrdered By: Valentin Leonard on 07-15-2025 Glomerular filtration rate [Volume Rate/Area] in Serum, Plasma or Blood by Creatinine 31 mL/min/1.73m??? Low >=60 [facility] Comment on above: Estimated Glomerular Filtration Rate (eGFR) is calculated using the 2020 CKD-EPI creatinine equation. This equation utilizes serum creatinine, sex, and age as parameters. The creatinine assay has traceable calibration to isotope dilution-mass spectrometry. Refer to KDIGO guidelines for clinical interpretation. In patients with unstable renal function, e.g. those with acute kidney injury, the eGFR may not accurately reflect actual GFR. Hematocrit Auto (Bld) [Volum e fraction]Ordered By: Valentin Leonard on 07-15-2025 Hematocrit (Bld) [Volume fraction] 27.6 % Low 36.0-46.0 [facility] Hemoglobin [Mass/volume] in BloodOrdered By: Valentin Leonard on 07-15-2025 Hemoglobin (Bld) [Mass/Vol] 8.9 g/dL Low 11.5-15.5 [facility] Iron and Iron binding capaci ty panelon 07-15-2025 Iron [Mass/Vol] 45 ug/dL Normal 41-186 [facility] Comment on above: Order Comment: Speci men Type: BLOOD SPECIMEN Ordering Facility: [facility] Address: [address] [place] [address] Performed By: #### 5 0190-8, 2284-8, 2132-9, 2276-4 #### [facility] CLIA [id number] [address] [place] [address] [place] Iron binding capacity [Mass/Vol] 255 ug/dL Normal 232-386 [facility] Comment on above: Order Comment: Speci men Type: BLOOD SPECIMEN Ordering Facility: [facility] Address: [address] [place] [address] Performed By: #### 5 0190-8, 4-8, 2131-9, 6-4 #### [facility] CLIA [id number] [address] [place] [address] [place] Iron/TIBC [Molar ratio] 17.6 % Normal 15.0-57.0 [facility] Comment on above: Order Comment: Speci men Type: BLOOD SPECIMEN Ordering Facility: [facility] Address: [address] [place] [address] Performed By: #### 5 0190-8, 4-8, 2131-9, 6-4 #### [facility] CLIA [id number] [address] [place] [address] [place] Iron binding capacity [Mass/ volume] in Serum or PlasmaOrdered By: Valentin Abhyankar on 07-15-2025 Iron binding capacity [Mass/Vol] 255 ug/dL 232-386 [facility] Iron saturation [Mass Fracti on] in Serum or PlasmaOrdered By: Valentin Abhyankar on 07-15-2025 Iron saturation [Mass fraction] 17.6 % 15.0-57.0 [facility] - Chemistry and C hemistry - challengeOrdered By: Valentin Leonard on 07-15-2025 Albumin [Mass/Vol] 3.7 g/dL Low 3.9-4.9 [facility] ALP [Catalytic activity/Vol] 45 U/L 34-123 [facility] ALT [Catalytic activity/Vol] 10 U/L 7-38 [facility] AST [Catalytic activity/Vol] 16 U/L 13-35 [facility] Bilirubin [Mass/Vol] 0.3 mg/dL 0.2-1.3 [facility] Calcium [Mass/Vol] 9.0 mg/dL 8.5-10.2 [facility] Chloride [Moles/Vol] 101 mmol/L 98-107 [facility] CO2 [Moles/Vol] 28 mmol/L 22-30 [facility] Creatinine [Mass/Vol] 1.64 mg/dL High 0.58-0.96 [facility] Ferritin [Mass/Vol] 174.0 ng/mL 14.7-205.1 [facility] Glucose [Mass/Vol] 103 mg/dL High 74-99 [facility] Comment on above: The [place] Diabete s Association (ADA) provides guidance for cutoff values [...] meet the criteria for diagnosis of diabetes.Reference: Standards of Medical Care in Diabetes 2016, [place] [employer]. Diabetes Care. 2016.39(Suppl 1). Iron [Mass/Vol] 45 ug/dL 41-186 [facility] Potassium [Moles/Vol] 4.7 mmol/L 3.7-5.1 [facility] Sodium [Moles/Vol] 139 mmol/L 136-144 [facility] Urea nitrogen [Mass/Vol] 32 mg/dL High 7-21 [facility] - Chemistry and C hemistry - challengeOrdered By: Nathan Hathaway on 07-15-2025 Cobalamin (Vitamin B12) [Mass/Vol] 1457 pg/mL High 232-1245 [facility] - Hematology and Cell countsOrdered By: Valentin Leonard on 07-15-2025 Eosinophils (Bld) [#/Vol] 0.16 10*3/uL <0.46 [facility] Immature granulocytes (Bld) [#/Vol] 0.03 10*3/uL <0.10 [facility] Immature granulocytes/100 WBC (Bld) 0.5 % [facility] Leukocytes [#/volume] correc miguel for nucleated erythrocytes in Blood by Automated counOrdered By: Valentin Leonard on 07-15-2025 WBC corrected for nucl RBC Auto (Bld) [#/Vol] 6.28 k/uL 3.70-11.00 [facility] Lymphocytes Auto (Bld) [#/Vo l]Ordered By: Valentin Leonard on 07-15-2025 Lymphocytes (Bld) [#/Vol] 0.77 10*3/uL Low 1.00-4.00 [facility] Lymphocytes/100 WBC Auto (Bl d)Ordered By: Valentin Leonard on 07-15-2025 Lymphocytes/100 WBC (Bld) 12.3 % [facility] MCH Auto (RBC) [Entitic mass ]Ordered By: Valentin Leonard on 07-15-2025 MCH (RBC) [Entitic mass] 28.8 pg 26.0-34.0 [facility] MCHC Auto (RBC) [Mass/Vol]Or dered By: Valentin Leonard on 07-15-2025 MCHC (RBC) [Mass/Vol] 32.2 g/dL 30.5-36.0 [facility] MCV Auto (RBC) [Entitic vol] Ordered By: Valentin Leonard on 07-15-2025 MCV (RBC) [Entitic vol] 89.3 fL 80.0-100.0 [facility] 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 ANALYSI Son 07-15-2025 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 RESULT Normal [facility] Comment on above: Order Comment: Speci men Type: BLOOD SPECIMEN Ordering Facility: [facility] Address: [address] [place] [address] Result Comment: MYD8 8 L265P MUTATION ANALYSIS Laboratory Accession Number: [id number] Sample Type: Peripheral Blood Result: 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 L265P is highly characteristic of lymphoplasmacytic lymphoma/Waldenstrom's macroglobulinemia, where it is found in >90% of cases. This abnormality may also be found in diffuse large B-cell lymphomas and in a small percentage of other small B-cell neoplasms including chronic lymphocytic leukemia and marginal zone lymphomas. Clinical and pathologic correlation is suggested. Methodology: DNA extracted from the specimen is interrogated for the presence or absence of the L265P (c.794T>C, p.[id number]; [id number]; [id number]) variant (mutation) in MYD88 gene (NM_[id number]) using droplet digital polymerase chain reaction (PCR). Droplet digital PCR includes partitioning of DNA into droplets, droplet independent PCR, interrogation using allele specific hydrolysis probes, and analysis of droplets using Poisson distribution to calculate the copy number of MYD88 L265P and wild-type MYD88. The reference genome used is GRCh38/hg38. Limitations: This test is designed to detect the L265P variant in the MYD88 gene. Uncommon variants or single nucleotide polymorphisms may affect binding of probes or primers and may rarely result in false negative, false positive, or indeterminate results. Other variants in MYD88 will not be identified by this test. The lower limit of detection of this assay is approximately 0.5% variant allele fraction (vaf) for the MYD88 L265P variant. Although vaf is provided for reference, this value should be interpreted with caution as this test is intended for qualitative purposes and is not validated as a quantitative test. The MYD88 L265P result cannot be used on a standalone basis for diagnosis of lymphoplasmacytic lymphoma and needs to be considered in the context of clinical and morphologic presentation. References: 1) Nikkie VN, Cristhian RM, Hannah R, et al. Oncogenically active MYD88 mutations in human lymphoma. Nature 2011. 470(3986):115-9. 2) Joya SL, Anai WagonerJ, DW, James L, Mikey JR, [facility] ED: MYD88 L265P somatic mutation: its usefulness in the differential diagnosis of bone marrow involvement by B-cell lymphoproliferative disorders. Am J Clin Pathol. 2013. 140(3):387-94. 3) Obi SP, Spencer L, Brooks G, et al. MYD88 L265P somatic mutation in Waldenstrom's macroglobulinemia. N Engl J Med. 2012. 367(3)402-33. 4) Gage WagonerQ, Juan J MADDEN, Ariel LL, Tanya K. Toll-like receptors and cancer: MYD88 mutation and inflammation. Front Immunol. 2014 May 28;367(5):1-10. 5) Nery X, Francy W, Maykel Q, et al. MYD88 L265P Mutation in Lymphoid Malignancies. Cancer Res. 2018. 78(45):8890-04. Disclaimer: This test was developed and its performance characteristics determined by [facility]'s Pathology and Laboratory Medicine Department. It has not been cleared or approved by the FDA. [facility]'s Pathology and Laboratory Medicine Department is regulated under CLIA as certified to perform high-complexity testing. This test is used for clinical purposes. It should not be regarded as investigational or for research. Test performed at [facility], [address] [place] [address]. CLIA Number: [id number] Interpretation performed by Natalee Bolanos, PhD, HCLD Performed By: #### 1 5061-5 #### [facility] CLIA [id number] [address] [place] [address] [place] [address] [place] Monocytes Auto (Bld) [#/Vol] Ordered By: Valentin Abhyankar on 07-15-2025 Monocytes (Bld) [#/Vol] 0.65 10*3/uL <0.87 [facility] Monocytes/100 WBC Auto (Bld) Ordered By: Valentin Abhyankar on 07-15-2025 Monocytes/100 WBC (Bld) 10.4 % [facility] Neutrophils Auto (Bld) [#/Vo l]Ordered By: Valentin Abhyankar on 07-15-2025 Neutrophils (Bld) [#/Vol] 4.62 10*3/uL 1.45-7.50 [facility] Neutrophils/100 WBC Auto (Bl d)Ordered By: Valentin Abhyankar on 07-15-2025 Neutrophils/100 WBC (Bld) 73.5 % [facility] No Panel InformationOrdered By: Valentin Abhyankar on 07-15-2025 Folate 17.5 ng/mL >4.7 [facility] MYD88 L265P Mutation See comment Fir [facility] Comment on above: 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 ANALYSISLaboratory Accession Number: [id number] Type: Peripheral BloodResult:MYD88 L265P (c.794T>C, p.Mid777Ftg) detected with variant allelefraction (vaf) 0.98%.Interpretation:The MYD88 missense variant L265P (c.794T>C, p.Ttl841Raf) is present.L265P is highly characteristic of lymphoplasmacyticlymphoma/Waldenstrom's macroglobulinemia, where it is found in >90% ofcases. This abnormality may also be found in diffuse large B-celllymphomas and in a small percentage of other small B-cell neoplasmsincluding chronic lymphocytic leukemia and marginal zone lymphomas.Clinical and pathologic correlation is suggested.Methodology:DNA extracted from the specimen is interrogated for the presence orabsence of the L265P (c.794T>C, p.Zjl169Crb; g.[id number]; [id number])variant (mutation) in MYD88 gene (NM_[id number]) using droplet digitalpolymerase chain reaction (PCR). Droplet digital PCR includespartitioning of DNA into droplets, droplet independent PCR,interrogation using allele specific hydrolysis probes, and analysis ofdroplets using Poisson distribution to calculate the copy number ofMYD88 L265P and wild-type MYD88. The reference genome used [id number]/hg38.Limitations:This test is designed to detect the L265P variant in the MYD88 gene.Uncommon variants or single nucleotide polymorphisms may affectbinding of probes or primers and may rarely result in false negative,false positive, or indeterminate results. Other variants in MYD88 willnot be identified by this test. The lower limit of detection of thisassay is approximately 0.5% variant allele fraction (vaf) for hunCOM13 L265P variant. Although vaf is provided for reference, thisvalue should be interpreted with caution as this test is intended forqualitative purposes and is not validated as a quantitative test. [id number] L265P result cannot be used on a standalone basis for diagnosisof lymphoplasmacytic lymphoma and needs to be considered in thecontext of clinical and morphologic presentation.References:1) Nikkie LOPEZ, Cristhian ADAMS, Hannah R, et al. Oncogenically active [id number] in human lymphoma. Nature 2011. 470(4655):115-9.2) Joya RIVAS, Anai WagonerJ, Warden INFANTE, James L, Mikey Nash ALLEN ED: [id number] somatic mutation: its usefulness in the differential diagnosisof bone marrow involvement by B-cell lymphoproliferative disorders. AmJ Clin Pathol. 2013. 140(3):387-94.3) Obi SP, Spencer L, Todd G, et al. 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 N Engl J Med. 2012. 367(6)289-33.4) Almonte JQ, Juan J YS, Ariel LL, Tanya K. Toll-like receptorsand cancer: MYD88 mutation and inflammation. Front Immunol. 2014 ;367(5):1-10.5) Gabriel X, Li W, Maykel Q, et al. 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 Cancer Res. 2018. 78(10):7986-93.Disclaimer:This test was developed and its performance characteristics determinedby [facility]'s [facility] and [facility] Department. Ithas not been cleared or approved by the FDA. [facility] is regulated under CLIAas certified to perform high-complexity testing. This test is used forclinical purposes. It should not be regarded as investigational or forresearch.Test performed at [facility], [address] [place] [address]. CLIA Number: [id number] performed by Natalee Bolanos, PhD, [facility] Nucleated RBC Auto (Bld) [#/ Vol]Ordered By: Valentin Leonard on 07-15-2025 Nucleated RBC (Bld) [#/Vol] 10*3/uL <0.01 [facility] Nucleated erythrocytes [Pres ence] in Blood by Automated countOrdered By: Valentin Leonard on 07-15-2025 Nucleated RBC Auto Ql (Bld) 0.0 /100{WBC} [facility] Platelet mean volume Auto (B ld) [Entitic vol]Ordered By: Valentin Leonard on 07-15-2025 Platelet mean volume (Bld) [Entitic vol] 9.9 fL 9.0-12.7 [facility] Platelets Auto (Bld) [#/Vol] Ordered By: Valentin Leonard on 07-15-2025 Platelets (Bld) [#/Vol] 295 10*3/uL 150-400 [facility] Protein [Mass/volume] in Ser um or PlasmaOrdered By: Valentin Leonard on 07-15-2025 Protein [Mass/Vol] 5.9 g/dL Low 6.3-8.0 [facility] RBC Auto (Bld) [#/Vol]Ordere d By: Valentin Leonard on 07-15-2025 RBC (Bld) [#/Vol] 3.09 10*6/uL Low 3.90-5.20 [facility] Serum or plasma anion gap de terminationOrdered By: Valentin Leonard on 07-15-2025 Anion gap [Moles/Vol] 10 mmol/L 8-15 [facility] Serum or plasma erythropoiet in (EPO) measurement (units/volume)Ordered By: Valentin Leonard on 07-15-2025 Erythropoietin (EPO) Qn 26.4 mIU/mL High 2.6-18.5 [facility] Vit B12 SerPl-mCncon 025 Cobalamin (Vitamin B12) [Mass/Vol] 1457 pg/mL High 232-1245 [facility] Comment on above: Order Comment: Speci men Type: BLOOD SPECIMEN Ordering Facility: [facility] Address: [address] [place] [address] Performed By: #### 5 0190-8, 2284-8, 2132-9, 2276-4 #### [facility] CLIA [id number] [address] [place] [address] [place] CNPDena 07-10-2025 CNPN Telephone (NCCAP) -------- LASHAUN JOAQUIN ([id number]) 1940 F Date Time Provider Department 07/10/25 VALENTIN LEONARD During your visit today, we recorded the following information about you: Cat Landeros 07/10/2025 11:[address] Nathan Hathaway's office is calling today regarding Asking the question why labs were repeated on 07/08/2025 when she just had labs drawn on 06/23/2025. Please call Dr Hathaway's office back. Patient has been identified by name and birthdate. Person calling: Dr Nathan Hathaway's office Please return the call at [phone] KERRY Menendez Felicia, RN 07/10/2025 12:[address] Hathaway's office and spoke with Daayna. I informed her of Mrs Joaquin worsening anemia/renal function and elevated blood proteins (refer to note per Kg Petit PA-C from today). She appreciated the update and will discuss with Dr Hathaway. Yolanda Cobian RN Allergies As of Date: 07/10/2025 Noted Allergy Reaction ALLOPURINOL 11/05/2023 16 - Unknown AMLODIPINE 07/27/2021 16 - Unknown BACTRIM (SULFAMETHOXAZOLE-TRIMET H*07/27/2021 16 - Unknown CHERATUSSIN AC (CODEINE-GUAIFENES*07/27 16 - Unknown DOXYCYCLINE HYCLATE 07/27/2021 16 - Unknown DULOXETINE 07/27/2021 16 - Unknown IODINE AND IODIDE CONTAINING PROD*01/19/2021 16 - Unknown Comments: 08/04/22 confirmed with patient that she is not allergic to CT contrast and has had it previously without issues or premeds. LEVAQUIN (LEVOFLOXACIN) 07/27/2021 16 - Unknown PENICILLINS 07/27/2021 16 - Unknown PSEUDOEPHEDRINE 10/29/2019 16 - Unknown SULFA (SULFONAMIDE ANTIBIOTICS) 03/08/2023 2 - Rash 16 - Unknown TETANUS AND DIPHTHERIA TOXOIDS 07/27/2021 16 - Unknown TETRACYCLINES 07/27/2021 16 - Unknown TRIMETHOPRIM 03/09/2023 16 - Unknown ZOFRAN (ONDANSETRON) 07/27/2021 16 - Unknown Date Reviewed: 07/08/2025 Reviewed by: Loree Rosado MA - Fully Assessed Reason for Visit: Orders [681] Patient Update [1234] Prescriptions as of 07/10/2025 - NIFEdipine ER (PROCARDIA XL) 30 mg 24 hr tablet Take 30 mg by mouth. - valsartan (DIOVAN) 80 mg tablet Take 80 mg by mouth. - rosuvastatin (CRESTOR) 40 mg tablet Take 40 mg by mouth. - clopidogrel (PLAVIX) 75 mg tablet TAKE 8 TABLETS BY MOUTH ON DAY ONE THEN TAKE 1 TABLET BY MOUTH DAILY - furosemide (LASIX) 20 mg tablet Take 20 mg by mouth two times a day. - potassium chloride (K-TAB) 10 mEq tablet Take 10 mEq by mouth two times a day. - pantoprazole DR (PROTONIX) 40 mg tablet - aspirin 81 mg cap Take by mouth. - temazepam (RESTORIL) 15 mg Take by mouth at bedtime as needed. - ALPRAZolam (XANAX) 0.25 mg tablet Take 0.25 mg by mouth three times daily as needed. - GABAPENTIN ORAL Take 100 mg by mouth twice daily. Problem List As Of Date: 07/10/2025 (None) Encounter Status:Closed by YOLANDA COBIAN on 07/10/25 Normal [facility] Albumin [Mass/volume] in Ser um or PlasmaOrdered By: Nathan Hathaway on 07-08-2025 Albumin [Mass/Vol] 3.33 g/dL Low 3.43-5.41 [facility] CBC W Auto Differential pane l (Bld)on 07-08-2025 Basophils (Bld) [#/Vol] 0.05 10*3/uL Normal <0.11 [facility] Comment on above: Order Comment: Speci men Type: BLOOD SPECIMEN Ordering Facility: [facility] Address: [address] [place] [address] Performed By: #### 1 5061-5 #### [facility] CLIA [id number] [address] [place] [address] [place] Basophils/100 WBC (Bld) 0.9 % Normal [facility] Comment on above: Order Comment: Speci men Type: BLOOD SPECIMEN Ordering Facility: [facility] Address: [address] [place] [address] Performed By: #### 1 5061-5 #### [facility] CLIA [id number] [address] [place] [address] [place] Differential cell count method Nom (Bld) Auto Normal [facility] Comment on above: Order Comment: Speci men Type: BLOOD SPECIMEN Ordering Facility: [facility] Address: [address] [place] [address] Performed By: #### 1 5061-5 #### [facility] CLIA [id number] [address] [place] [address] [place] Eosinophils (Bld) [#/Vol] 0.18 10*3/uL Normal <0.46 [facility] Comment on above: Order Comment: Speci men Type: BLOOD SPECIMEN Ordering Facility: [facility] Address: [address] [place] [address] Performed By: #### 1 5061-5 #### [facility] CLIA [id number] [address] [place] [address] [place] Eosinophils/100 WBC (Bld) 3.3 % Normal [facility] Comment on above: Order Comment: Speci men Type: BLOOD SPECIMEN Ordering Facility: [facility] Address: [address] [place] [address] Performed By: #### 1 5061-5 #### [facility] CLIA [id number] [address] [place] [address] [place] Erythrocyte distribution width (RBC) [Ratio] 13.5 % Normal 11.5-15.0 [facility] Comment on above: Order Comment: Speci men Type: BLOOD SPECIMEN Ordering Facility: [facility] Address: [address] [place] [address] Performed By: #### 1 5061-5 #### [facility] CLIA [id number] [address] [place] [address] [place] Hematocrit (Bld) [Volume fraction] 27.8 % Low 36.0-46.0 [facility] Comment on above: Order Comment: Speci men Type: BLOOD SPECIMEN Ordering Facility: [facility] Address: [address] [place] [address] Performed By: #### 1 5061-5 #### [facility] CLIA [id number] [address] [place] [address] [place] Hemoglobin (Bld) [Mass/Vol] 9.0 g/dL Low 11.5-15.5 [facility] Comment on above: Order Comment: Speci men Type: BLOOD SPECIMEN Ordering Facility: [facility] Address: [address] [place] [address] Performed By: #### 1 5061-5 #### [facility] CLIA [id number] [address] [place] [address] [place] Immature granulocytes (Bld) [#/Vol] 0.03 10*3/uL Normal <0.10 [facility] Comment on above: Order Comment: Speci men Type: BLOOD SPECIMEN Ordering Facility: [facility] Address: [address] [place] [address] Performed By: #### 1 5061-5 #### [facility] CLIA [id number] [address] [place] [address] [place] Immature granulocytes/100 WBC (Bld) 0.5 % Normal [facility] Comment on above: Order Comment: Speci men Type: BLOOD SPECIMEN Ordering Facility: [facility] Address: [address] [place] [address] Performed By: #### 1 5061-5 #### [facility] CLIA [id number] [address] [place] [address] [place] Lymphocytes (Bld) [#/Vol] 0.87 10*3/uL Low 1.00-4.00 [facility] Comment on above: Order Comment: Speci men Type: BLOOD SPECIMEN Ordering Facility: [facility] Address: [address] [place] [address] Performed By: #### 1 5061-5 #### [facility] CLIA [id number] [address] [place] [address] [place] Lymphocytes/100 WBC (Bld) 15.9 % Normal [facility] Comment on above: Order Comment: Speci men Type: BLOOD SPECIMEN Ordering Facility: [facility] Address: [address] [place] [address] Performed By: #### 1 5061-5 #### [facility] CLIA [id number] [address] [place] [address] [place] MCH (RBC) [Entitic mass] 28.8 pg Normal 26.0-34.0 [facility] Comment on above: Order Comment: Speci men Type: BLOOD SPECIMEN Ordering Facility: [facility] Address: [address] [place] [address] Performed By: #### 1 5061-5 #### [facility] CLIA [id number] [address] [place] [address] [place] MCHC (RBC) [Mass/Vol] 32.4 g/dL Normal 30.5-36.0 [facility] Comment on above: Order Comment: Speci men Type: BLOOD SPECIMEN Ordering Facility: [facility] Address: [address] [place] [address] Performed By: #### 1 5061-5 #### [facility] CLIA [id number] [address] [place] [address] [place] MCV (RBC) [Entitic vol] 89.1 fL Normal 80.0-100.0 [facility] Comment on above: Order Comment: Speci men Type: BLOOD SPECIMEN Ordering Facility: [facility] Address: [address] [place] [address] Performed By: #### 1 5061-5 #### [facility] CLIA [id number] [address] [place] [address] [place] Monocytes (Bld) [#/Vol] 0.61 10*3/uL Normal <0.87 [facility] Comment on above: Order Comment: Speci men Type: BLOOD SPECIMEN Ordering Facility: [facility] Address: [address] [place] [address] Performed By: #### 1 5061-5 #### [facility] CLIA [id number] [address] [place] [address] [place] Monocytes/100 WBC (Bld) 11.2 % Normal [facility] Comment on above: Order Comment: Speci men Type: BLOOD SPECIMEN Ordering Facility: [facility] Address: [address] [place] [address] Performed By: #### 1 5061-5 #### [facility] CLIA [id number] [address] [place] [address] [place] Neutrophils (Bld) [#/Vol] 3.72 10*3/uL Normal 1.45-7.50 [facility] Comment on above: Order Comment: Speci men Type: BLOOD SPECIMEN Ordering Facility: [facility] Address: [address] [place] [address] Performed By: #### 1 5061-5 #### [facility] CLIA [id number] [address] [place] [address] [place] Neutrophils/100 WBC (Bld) 68.2 % Normal [facility] Comment on above: Order Comment: Speci men Type: BLOOD SPECIMEN Ordering Facility: [facility] Address: [address] [place] [address] Performed By: #### 1 5061-5 #### [facility] CLIA [id number] [address] [place] [address] [place] Nucleated RBC (Bld) [#/Vol] 10*3/uL Normal <0.01 [facility] Comment on above: Order Comment: Speci men Type: BLOOD SPECIMEN Ordering Facility: [facility] Address: [address] [place] [address] Performed By: #### 1 5061-5 #### [facility] CLIA [id number] [address] [place] [address] [place] Nucleated RBC/100 WBC (Bld) [Ratio] 0.0 /100 WBC Normal [facility] Comment on above: Order Comment: Speci men Type: BLOOD SPECIMEN Ordering Facility: [facility] Address: [address] [place] [address] Performed By: #### 1 5061-5 #### [facility] CLIA [id number] [address] [place] [address] [place] Platelet mean volume (Bld) [Entitic vol] 9.5 fL Normal 9.0-12.7 [facility] Comment on above: Order Comment: Speci men Type: BLOOD SPECIMEN Ordering Facility: [facility] Address: [address] [place] [address] Performed By: #### 1 5061-5 #### [facility] CLIA [id number] [address] [place] [address] [place] Platelets (Bld) [#/Vol] 275 10*3/uL Normal 150-400 [facility] Comment on above: Order Comment: Speci men Type: BLOOD SPECIMEN Ordering Facility: [facility] Address: [address] [place] [address] Performed By: #### 1 5061-5 #### [facility] CLIA [id number] [address] [place] [address] [place] RBC (Bld) [#/Vol] 3.12 10*6/uL Low 3.90-5.20 [facility] Comment on above: Order Comment: Speci men Type: BLOOD SPECIMEN Ordering Facility: [facility] Address: [address] [place] [address] Performed By: #### 1 5061-5 #### [facility] CLIA [id number] [address] [place] [address] [place] WBC (Bld) [#/Vol] 5.46 10*3/uL Normal 3.70-11.00 [facility] Comment on above: Order Comment: Speci men Type: BLOOD SPECIMEN Ordering Facility: [facility] Address: [address] [place] [address] Performed By: #### 1 5061-5 #### [facility] CLIA [id number] [address] [place] [address] [place] CNOVSPon 07-08-2025 CNOVSP Visit (SP) Office ([place]) -------- JEMALEMELIAN ([id number]) 1940 F Date Time Provider Department 07/08/25 10:00 AM PAOLO CASILLAS During your visit today, we recorded the following information about you: Temperature Pulse Respiration Blood pressure 96.8 degrees 66/minute 18/minute 178/68 Weight Height 91.8 kg 1.664 m Paolo Casillas APRN.CNP 07/10/2025 6:42 PM Signed PATIENT NAME: Lashaun Joaquin DATE: 07/08/2025 PRIMARY CARE PHYSICIAN: Dr. Nathan Hathaway OTHER PHYSICIANS: Dr. Perry Portions of this encounter note have been copied from the note from 11/05/2023 and has been updated where appropriate, and reflect my current medical decision making from today. CC: This is an 84 year old female with chronic neuropathy and arthritis, initially referred for evaluation of an abnormal SPEP, seen for scheduled follow-up. INTERIM HISTORY: Patient is an 84-year-old female with a history of MGUS, CAD with stent placement, and hypothyroidism, presenting for follow-up. History of Diagnosis: Patient was last seen in October 2022. She has been under the care of Dr. Hathaway, who referred her back for evaluation due to abnormal proteins in her blood. She has a history of MGUS, which has been monitored for potential progression to multiple myeloma. In 2022, she underwent stent placement by Dr. Perry and has been followed by cardiology, including Dr. Guy and GLORIA Rosado. She also has a history of a thyroid nodule, which was biopsied but the sample was insufficient. She was advised to have regular follow-ups every three months. Recent History: Patient reports generalized edema, wheezing at night, and fatigue. She is currently on an inhaler (Anoro Ellipta) but is unsure of its effectiveness. She notes significant swelling in her legs and feet, with associated itching and burning at night. She has been taking furosemide but reports inadequate diuresis and is awaiting a new prescription for a different diuretic. She also experiences joint pain in her knees, back, and ankles. She reports a recent weight gain of approximately 4 pounds, which she attributes to fluid retention. She denies any unintentional weight loss. She also reports episodes of reflux and has not been consistently taking her prescribed proton pump inhibitor. Patient expresses frustration with her current primary care physician, and is considering changing providers. She is also concerned about her 's health, as he has had multiple recent ER visits for anxiety-related symptoms. MEDICATIONS: Current Outpatient Medications Medication Sig carvedilol (COREG) 12.5 mg tablet TAKE 1 TABLET BY MOUTH TWICE A DAY WITH FOOD/MEAL clopidogrel (PLAVIX) 75 mg tablet TAKE 8 TABLETS BY MOUTH ON DAY ONE THEN TAKE 1 TABLET BY MOUTH DAILY furosemide (LASIX) 20 mg tablet Take 20 mg by mouth two times a day. potassium chloride (K-TAB) 10 mEq tablet Take 10 mEq by mouth two times a day. irbesartan (AVAPRO) 150 mg tablet rOPINIRole (REQUIP) [...] ABD HYSTERECTOMY+BLAD REPR FAMILY HISTORY: FAMILY HISTORY Proble (more content not included)... Normal [facility] 07-08-2025 [facility] -------- LASHAUN JOAQUIN ([id number]) 1940 F Date Time Provider Department 07/08/25 PAOLO CASILLAS [facility] During your visit today, we recorded the following information about you: Kayla Arriaga 07/08/2025 11:24 AM Signed Please call Her daughter Marianna with today's lab results. [phone] Yolanda Cobian RN 07/10/2025 9:17 AM Signed Labs still pending. YORDAN Arambula Felicia, RN 07/10/2025 2:12 PM Signed Refer to providers phone encounter for details of follow up/intervention Yolanda Cobian RN Allergies As of Date: 07/08/2025 Noted Allergy Reaction ALLOPURINOL 11/05/2023 16 - Unknown AMLODIPINE 07/27/2021 16 - Unknown BACTRIM (SULFAMETHOXAZOLE-TRIMET H*07/27/2021 16 - Unknown CHERATUSSIN AC (CODEINE-GUAIFENES*07/27 16 - Unknown DOXYCYCLINE HYCLATE 07/27/2021 16 - Unknown DULOXETINE 07/27/2021 16 - Unknown IODINE AND IODIDE CONTAINING PROD*01/19/2021 16 - Unknown Comments: 08/04/22 confirmed with patient that she is not allergic to CT contrast and has had it previously without issues or premeds. LEVAQUIN (LEVOFLOXACIN) 07/27/2021 16 - Unknown PENICILLINS 07/27/2021 16 - Unknown PSEUDOEPHEDRINE 10/29/2019 16 - Unknown SULFA (SULFONAMIDE ANTIBIOTICS) 03/08/2023 2 - Rash 16 - Unknown TETANUS AND DIPHTHERIA TOXOIDS 07/27/2021 16 - Unknown TETRACYCLINES 07/27/2021 16 - Unknown TRIMETHOPRIM 03/09/2023 16 - Unknown ZOFRAN (ONDANSETRON) 07/27/2021 16 - Unknown Date Reviewed: 07/08/2025 Reviewed by: Loree Rosado MA - Fully Assessed Reason for Visit: Results [95] Prescriptions as of 07/10/2025 - NIFEdipine ER (PROCARDIA XL) 30 mg 24 hr tablet Take 30 mg by mouth. - valsartan (DIOVAN) 80 mg tablet Take 80 mg by mouth. - rosuvastatin (CRESTOR) 40 mg tablet Take 40 mg by mouth. - clopidogrel (PLAVIX) 75 mg tablet TAKE 8 TABLETS BY MOUTH ON DAY ONE THEN TAKE 1 TABLET BY MOUTH DAILY - furosemide (LASIX) 20 mg tablet Take 20 mg by mouth two times a day. - potassium chloride (K-TAB) 10 mEq tablet Take 10 mEq by mouth two times a day. - pantoprazole DR (PROTONIX) 40 mg tablet - aspirin 81 mg cap Take by mouth. - temazepam (RESTORIL) 15 mg Take by mouth at bedtime as needed. - ALPRAZolam (XANAX) 0.25 mg tablet Take 0.25 mg by mouth three times daily as needed. - GABAPENTIN ORAL Take 100 mg by mouth twice daily. Problem List As Of Date: 07/08/2025 (None) Encounter Status:Closed by YOLANDA COBIAN on 07/10/25 Normal [facility] Comprehensive metabolic 2000 panelon 07-08-2025 Albumin [Mass/Vol] 3.6 g/dL Low 3.9-4.9 [facility] Comment on above: Order Comment: Speci men Type: BLOOD SPECIMEN Ordering Facility: [facility] Address: [address] [place] [address] Performed By: #### 2 4323-8 #### [facility] CLIA [id number] [address] [place] [address] [place] ALP [Catalytic activity/Vol] 48 U/L Normal 34-123 [facility] Comment on above: Order Comment: Speci men Type: BLOOD SPECIMEN [facility] [facility] Address: [address] [place] [address] Performed By: #### 2 4323-8 #### [facility] CLIA [id number] [address] [place] [address] [place] ALT [Catalytic activity/Vol] 13 U/L Normal 7-38 [facility] Comment on above: Order Comment: Speci men Type: BLOOD SPECIMEN Ordering Facility: [facility] Address: [address] [place] [address] Performed By: #### 2 4323-8 #### [facility] CLIA [id number] [address] [place] [address] [place] Anion gap [Moles/Vol] 11 mmol/L Normal 8-15 [facility] Comment on above: Order Comment: Speci men Type: BLOOD SPECIMEN Ordering Facility: [facility] Address: [address] [place] [address] Performed By: #### 2 4323-8 #### [facility] CLIA [id number] [address] [place] [address] [place] AST [Catalytic activity/Vol] 22 U/L Normal 13-35 [facility] Comment on above: Order Comment: Speci men Type: BLOOD SPECIMEN Ordering Facility: [facility] Address: [address] [place] [address] Performed By: #### 2 4323-8 #### [facility] CLIA [id number] [address] [place] [address] [place] Bilirubin [Mass/Vol] 0.3 mg/dL Normal 0.2-1.3 [facility] Comment on above: Order Comment: Speci men Type: BLOOD SPECIMEN Ordering Facility: [facility] Address: [address] [place] [address] Performed By: #### 2 4323-8 #### [facility] CLIA [id number] [address] [place] [address] [place] Calcium [Mass/Vol] 8.9 mg/dL Normal 8.5-10.2 [facility] Comment on above: Order Comment: Speci men Type: BLOOD SPECIMEN Ordering Facility: [facility] Address: [address] [place] [address] Performed By: #### 2 4323-8 #### [facility] CLIA [id number] [address] [place] [address] [place] Chloride [Moles/Vol] 106 mmol/L Normal 98-107 [facility] Comment on above: Order Comment: Speci men Type: BLOOD SPECIMEN Ordering Facility: [facility] Address: [address] [place] [address] Performed By: #### 2 4323-8 #### [facility] CLIA [id number] [address] [place] [address] [place] CO2 [Moles/Vol] 24 mmol/L Normal 22-30 [facility] Comment on above: Order Comment: Speci men Type: BLOOD SPECIMEN Ordering Facility: [facility] Address: [address] [place] [address] Performed By: #### 2 4323-8 #### [facility] CLIA [id number] [address] [place] [address] [place] Creatinine [Mass/Vol] 1.65 mg/dL High 0.58-0.96 [facility] Comment on above: Order Comment: Preet patino Type: BLOOD SPECIMEN Ordering Facility: [facility] Address: [address] [place] [address] Performed By: #### 2 4323-8 #### [facility] CLIA [id number] [address] [place] [address] [place] eGFRcr SerPlBld CKD-EPI 2020 31 mL/min/1.73m??? Low >=60 [facility] Comment on above: Order Comment: Preet patino Type: BLOOD SPECIMEN Ordering Facility: [facility] Address: [address] [place] [address] Result Comment: Shoshana mated Glomerular Filtration Rate [...] GFR. Performed By: #### 2 4323-8 #### [facility] CLIA [id number] [address] [place] [address] [place] Glucose [Mass/Vol] 100 mg/dL High 74-99 [facility] Comment on above: Order Comment: Preet patino Type: BLOOD SPECIMEN Ordering Facility: [facility] Address: [address] [place] [address] Result Comment: The [place] Diabetes Association (ADA) provides guidance for cutoff [...] Standards of Medical Care in Diabetes 2016, [place] [employer]. Diabetes Care. 2016.39(Suppl 1). Performed By: #### 2 4323-8 #### [facility] CLIA [id number] [address] [place] [address] [place] Potassium [Moles/Vol] 5.3 mmol/L High 3.7-5.1 [facility] Comment on above: Order Comment: Speci men Type: BLOOD SPECIMEN Ordering Facility: [facility] Address: [address] [place] [address] Performed By: #### 2 4323-8 #### [facility] CLIA [id number] [address] [place] [address] [place] Protein [Mass/Vol] 5.8 g/dL Low 6.3-8.0 [facility] Comment on above: Order Comment: Sarathi men Type: BLOOD SPECIMEN Ordering Facility: [facility] Address: [address] [place] [address] Performed By: #### 2 4323-8 #### [facility] CLIA [id number] [address] [place] [address] [place] Sodium [Moles/Vol] 141 mmol/L Normal 136-144 [facility] Comment on above: Order Comment: Speci men Type: BLOOD SPECIMEN Ordering Facility: [facility] Address: [address] [place] [address] Performed By: #### 2 4323-8 #### [facility] CLIA [id number] [address] [place], [place] [address] [place] Urea nitrogen [Mass/Vol] 27 mg/dL High 7-21 [facility] Comment on above: Order Comment: Speci men Type: BLOOD SPECIMEN Ordering Facility: [facility] Address: [address] [place] [address] Performed By: #### 2 4323-8 #### [facility] CLIA [id number] [address] [place] [address] [place] Glomerular filtration rate [ Volume Rate/Area] in Serum, Plasma or Blood by CreatinineOrdered By: Nathan Hathaway on 07-08-2025 Glomerular filtration rate [Volume Rate/Area] in Serum, Plasma or Blood by Creatinine 31 mL/min/1.73m??? Low >=60 [facility] Comment on above: Estimated Glomerular Filtration Rate (eGFR) is calculated using the 2020 CKD-EPI creatinine equation. This equation utilizes serum creatinine, sex, and age as parameters. The creatinine assay has traceable calibration to isotope dilution-mass spectrometry. Refer to KDIGO guidelines for clinical interpretation. In patients with unstable renal function, e.g. those with acute kidney injury, the eGFR may not accurately reflect actual GFR. IMMUNOFIXATION SCREEN, SERUM on 07-08-2025 INTERPRETATION (MPA) Poorly defined brenda on of restricted mobility in IgM and kappa lanes. Pattern is less well defined or fainter than typically seen in monoclonal gammopathy. This could represent either an atypical presentation of polyclonal immunoglobulins or the presence of a low level IgM kappa monoclonal gammopathy. If clinically indicated, urine monoclonal protein analysis and serum free light chain measurements are recommended to evaluate further for monoclonal gammopathy. Clinical correlation is necessary. Normal [facility] Comment on above: Order Comment: Speci men Type: BLOOD SPECIMEN Ordering Facility: [facility] Address: [address] [place] [address] Performed By: #### 1 5061-5 #### [facility] CLIA [id number] [address] [place] [address] [place] MPA RESULT A poorly defined reg ion of restricted mobility is present that may represent an M protein. Abnormal No M protein is identified. [facility] Comment on above: Order Comment: Speci men Type: BLOOD SPECIMEN Ordering Facility: [facility] Address: [address] [place] [address] Performed By: #### 1 5061-5 #### [facility] CLIA [id number] [address] [place] [address] [place] STAFF REVIEW (MPA) Reviewed by Dr. Matty David MD Normal [facility] Comment on above: Order Comment: Speci men Type: BLOOD SPECIMEN Ordering Facility: [facility] Address: [address] [place] [address] Performed By: #### 1 5061-5 #### [facility] CLIA [id number] [address] [place] [address] [place] IMMUNOGLOBULINS,IGG,IGA,IGMo n 07-08-2025 IgA [Mass/Vol] 64 mg/dL Low 70-400 [facility] Comment on above: Order Comment: Speci men Type: BLOOD SPECIMEN Ordering Facility: [facility] Address: [address] [place] [address] Performed By: #### S ERIMM #### [facility] CLIA [id number] [address] [place] [address] [place] IgG [Mass/Vol] 280 mg/dL Low 700-1600 [facility] Comment on above: Order Comment: Speci men Type: BLOOD SPECIMEN Ordering Facility: [facility] Address: [address] [place] [address] Performed By: #### S ERIMM #### [facility] CLIA [id number] [address] [place] [address] [place] IgM [Mass/Vol] 317 mg/dL High 40-230 [facility] Comment on above: Order Comment: Speci men Type: BLOOD SPECIMEN Ordering Facility: [facility] Address: [address] [place] [address] Performed By: #### S ERIMM #### [facility] CLIA [id number] [address] [place], [place] [address] [place] IgA [Mass/volume] in Serum o r PlasmaOrdered By: Fanny Bedoya on 07-08-2025 IgA [Mass/Vol] 64 mg/dL Low 70-400 [facility] IgG [Mass/volume] in Serum o r PlasmaOrdered By: Fanny Alvarengaod on 07-08-2025 IgG [Mass/Vol] 280 mg/dL Low 700-1600 [facility] IgM [Mass/volume] in Serum o r PlasmaOrdered By: Fanny Ethan on 07-08-2025 IgM [Mass/Vol] 317 mg/dL High 40-230 [facility] Immunoglobulin light chains. kappa.free [Mass/volume] in SerumOrdered By: Nathan Hathaway on 07-08-2025 Immunoglobulin light chains.kappa.free (S) [Mass/Vol] 300.9 mg/L High 3.3-19.4 [facility] Comment on above: Rarely, increased se rum free light chains levels may not be detected or accurately quantified due to prozone phenomenon or in high viscosity samples using this immunoturbidimetric assay. Correlation with other laboratory results and clinical findings is recommended. The [place] Free Light Chain was performed using the Binding Site Optilite immunoturbidimetric method. Result obtained with different assay methods or kits cannot be used interchangeably. Immunoglobulin light chains. kappa.free/Immunoglobulin light chains.lambda.free [MassOrdered By: Nathan Hathaway on 07-08-2025 Immunoglobulin light chains.kappa.free/Immu noglobulin light chains.lambda.free (S) [Mass ratio] 12.64 High 0.26-1.65 [facility] Immunoglobulin light chains. lambda.free [Mass/volume] in Serum or PlasmaOrdered By: Nathan Hathaway on 07-08-2025 Immunoglobulin light chains.lambda.free [Mass/Vol] 23.8 mg/L 5.7-26.3 [facility] Comment on above: Rarely, increased se rum free light chains levels may not be detected or accurately quantified due to prozone phenomenon or in high viscosity samples using this immunoturbidimetric assay. Correlation with other laboratory results and clinical findings is recommended. The Lambda Free Light Chain was performed using the Binding Site Optilite immunoturbidimetric method. Result obtained with different assay methods or kits cannot be used interchangeably. KAPPA/BOWLES,FREE,SERon 2024 Immunoglobulin light chains.kappa.free (S) [Mass/Vol] 300.9 mg/L High 3.3-19.4 [facility] Comment on above: Order Comment: Speci carey Type: BLOOD SPECIMEN Ordering Facility: [facility] Address: [address] [place] [address] Result Comment: Rare ly, increased serum free light chains levels may not be detected or accurately quantified due to prozone phenomenon or in high viscosity samples using this immunoturbidimetric assay. Correlation with other laboratory results and clinical findings is recommended. The [place] Free Light Chain was performed using the Binding Site Optilite immunoturbidimetric method. Result obtained with different assay methods or kits cannot be used interchangeably. Performed By: #### K LFRS #### [facility] CLIA [id number] [address] [place] [address] [place] Immunoglobulin light chains.kappa/Immunoglo bulin light chains.lambda (S) [Mass ratio] 12.64 High 0.26-1.65 [facility] Comment on above: Order Comment: Speci [facility] Type: BLOOD SPECIMEN Ordering Facility: [facility] Address: [address] [place] [address] Performed By: #### K LFRS #### [facility] CLIA [id number] [address] [place] [address] [place] Immunoglobulin light chains.lambda.free [Mass/Vol] 23.8 mg/L Normal 5.7-26.3 [facility] Comment on above: Order Comment: [facility] Type: BLOOD SPECIMEN Ordering Facility: [facility] Address: [address] [place] [address] Result Comment: Rare ly, increased serum free [...] interchangeably. Performed By: #### K LFRS #### [facility] CLIA [id number] [facility] [place] [address] [place] Laboratory - Chemistry and C hemistry - challengeOrdered By: Nathan Hathaway on 07-08-2025 Albumin [Mass/Vol] 3.6 g/dL Low 3.9-4.9 [facility] ALP [Catalytic activity/Vol] 48 U/L 34-123 [facility] ALT [Catalytic activity/Vol] 13 U/L 7-38 [facility] AST [Catalytic activity/Vol] 22 U/L 13-35 [facility] Bilirubin [Mass/Vol] 0.3 mg/dL 0.2-1.3 [facility] Calcium [Mass/Vol] 8.9 mg/dL 8.5-10.2 [facility] Chloride [Moles/Vol] 106 mmol/L 98-107 [facility] CO2 [Moles/Vol] 24 mmol/L 22-30 [facility] Creatinine [Mass/Vol] 1.65 mg/dL High 0.58-0.96 [facility] Glucose [Mass/Vol] 100 mg/dL High 74-99 [facility] Comment on above: The [place] Diabete s Association (ADA) provides guidance for cutoff values [...] meet the criteria for diagnosis of diabetes.Reference: Standards of Medical Care in Diabetes 2016, [place] [employer]. Diabetes Care. 2016.39(Suppl 1). Potassium [Moles/Vol] 5.3 mmol/L High 3.7-5.1 [facility] Protein [Mass/Vol] 0.00 g/dL <=0.00 [facility] Sodium [Moles/Vol] 141 mmol/L 136-144 [facility] Urea nitrogen [Mass/Vol] 27 mg/dL High 7-21 [facility] No Panel InformationOrdered By: Nathan Hathaway on 07-08-2025 Immunofixation Interpretation [facility] Leuk/Lymph Sign Pathologist (Misc) Reviewed by Dr. Jennifer David MD [facility] Miscellaneous Test 6 See comment Fir [facility] Comment on above: Not Applicable. Miscellaneous Test Comment Reviewed by Dr. Jennifer David MD [facility] Protein Electrophoresis Interpret [facility] Protein Electrophoresis Note No definitive M protein is identified on protein electrophoresis. No definitive M protein is identified on protein electrophor esis. [facility] Serum Immunofixation Abnormal No M protein is identified. [facility] PROTEIN ELECTROPHORESIS SERU M (P)on 07-08-2025 Albumin [Mass/Vol] 3.33 g/dL Low 3.43-5.41 [facility] Comment on above: Order Comment: Speci men Type: BLOOD SPECIMEN Ordering Facility: [facility] Address: [address] [place] [address] Performed By: #### 1 5061-5 #### [facility] CLIA [id number] [address] [place] [address] [place] Alpha 1 globulin Elph [Mass/Vol] 0.42 g/dL Normal 0.18-0.43 [facility] Comment on above: Order Comment: Speci men Type: BLOOD SPECIMEN Ordering Facility: [facility] Address: [address] [place] [address] Performed By: #### 1 5061-5 #### [facility] CLIA [id number] [address] [place] [address] [place] Alpha 2 globulin Elph [Mass/Vol] 0.86 g/dL Normal 0.42-0.98 [facility] Comment on above: Order Comment: Speci men Type: BLOOD SPECIMEN Ordering Facility: [facility] Address: [address] [place] [address] Performed By: #### 1 5061-5 #### [facility] CLIA [id number] [address] [place] [address] [place] Beta globulin Elph [Mass/Vol] 0.53 g/dL Low 0.61-1.17 [facility] Comment on above: Order Comment: Speci men Type: BLOOD SPECIMEN Ordering Facility: [facility] Address: [address] [place] [address] Performed By: #### 1 5061-5 #### [facility] CLIA [id number] [address] [place] [address] [place] Gamma globulin Elph [Mass/Vol] 0.37 g/dL Low 0.53-1.51 [facility] Comment on above: Order Comment: Speci men Type: BLOOD SPECIMEN Ordering Facility: [facility] Address: [address] [place] [address] Performed By: #### 1 5061-5 #### [facility] CLIA [id number] [address] [place] [address] [place] [facility] INTERPRETATION COMMENT FOR PROTEIN ELECTROPHORESIS Hypogammaglobulinemia is present, which can be seen in the setting of monoclonal gammopathy. If clinically indicated, monoclonal protein analysis and serum free light chain analysis are suggested to evaluate further for monoclonal gammopathy. Normal [facility] Comment on above: Order Comment: Preet patino Type: BLOOD SPECIMEN Ordering Facility: [facility] Address: [address] [place] [address] Performed By: #### 1 5061-5 #### [facility] CLIA [id number] [address] [place] [address] [place] M-PROTEIN LOCATION Normal [facility] Comment on above: Order Comment: Sarathi carey Type: BLOOD SPECIMEN Ordering Facility: [facility] Address: [address] [place] [address] Result Comment: Not Applicable. Performed By: #### 1 5061-5 #### [facility] CLIA [id number] [address] [place] [address] [place] Protein Fractions [Interp] No definitive M protein is identified on protein electrophoresis. Normal No definitive M protein is identified on protein electrophor esis. [facility] Comment on above: Order Comment: Speci men Type: BLOOD SPECIMEN Ordering Facility: [facility] Address: [address] [place] [address] Performed By: #### 1 5061-5 #### [facility] CLIA [id number] [address] [place] [address] [place] Protein.monoclonal Elph [Mass/Vol] 0.00 g/dL Normal <=0.00 [facility] Comment on above: Order Comment: Speci men Type: BLOOD SPECIMEN Ordering Facility: [facility] Address: [address] [place] [address] Performed By: #### 1 5061-5 #### [facility] CLIA [id number] [address] [place] [address] [place] SPE STAFF REVIEW Reviewed by Dr. Matty David MD [facility] Comment on above: Order Comment: Speci men Type: BLOOD SPECIMEN Ordering Facility: [facility] Address: [address] [place] [address] Performed By: #### 1 5061-5 #### [facility] CLIA [id number] [address] [place] [address] [place] Prot SerPl-mCncon 07-08-2025 Protein [Mass/Vol] 5.5 g/dL Low 6.3-8.0 [facility] Comment on above: Order Comment: Speci men Type: BLOOD SPECIMEN Ordering Facility: [facility] Address: [address] [place] [address] Performed By: #### 2 885-2 #### [facility] CLIA [id number] [address] [place] [address] [place] Protein [Mass/volume] in Ser um or PlasmaOrdered By: Fanny Bedoya on 07-08-2025 Protein [Mass/Vol] 5.5 g/dL Low 6.3-8.0 [facility] Serum or plasma alpha 1 glob ulin measurement by electrophoresis (mass/volume)Ordered By: Nathan Hathaway on 07-08-2025 Alpha 1 globulin Elph [Mass/Vol] 0.42 g/dL 0.18-0.43 [facility] Serum or plasma alpha 2 glob ulin measurement by electrophoresis (mass/volume)Ordered By: Nathan Hathaway on 07-08-2025 Alpha 2 globulin Elph [Mass/Vol] 0.86 g/dL 0.42-0.98 [facility] Serum or plasma anion gap de terminationOrdered By: Nathan Hathaway on 07-08-2025 Anion gap [Moles/Vol] 11 mmol/L 8-15 [facility] Serum or plasma beta globuli n measurement by electrophoresis (mass/volume)Ordered By: Nathan Htahaway on 07-08-2025 Beta globulin Elph [Mass/Vol] 0.53 g/dL Low 0.61-1.17 [facility] Serum or plasma gamma globul in measurement by electrophoresis (mass/volume)Ordered By: Nathan Hathaway on 07-08-2025 Gamma globulin Elph [Mass/Vol] 0.37 g/dL Low 0.53-1.51 [facility] CNPNon 07-06-2025 DANIELAN Telephone (JONATHON) -------- LASHAUN JOAQUIN ([id number]) 1940 F Date Time Provider Department 07/06/25 PAOLO CASILLAS During your visit today, we recorded the following information about you: Loree Rosado MA 07/06/2025 9:31 AM Signed Patient coming Sunday07/08/25 for follow up labs. Please add lab orders. Thanks. Loree Rosado MA Allergies As of Date: 07/06/2025 Noted Allergy Reaction ALLOPURINOL 11/05/2023 16 - Unknown AMLODIPINE 07/27/2021 16 - Unknown BACTRIM (SULFAMETHOXAZOLE-TRIMET H*07/27/2021 16 - Unknown CHERATUSSIN AC (CODEINE-GUAIFENES*07/27 16 - Unknown DOXYCYCLINE HYCLATE 07/27/2021 16 - Unknown DULOXETINE 07/27/2021 16 - Unknown IODINE AND IODIDE CONTAINING PROD*01/19/2021 16 - Unknown Comments: 08/04/22 confirmed with patient that she is not allergic to CT contrast and has had it previously without issues or premeds. LEVAQUIN (LEVOFLOXACIN) 07/27/2021 16 - Unknown PENICILLINS 07/27/2021 16 - Unknown PSEUDOEPHEDRINE 10/29/2019 16 - Unknown SULFA (SULFONAMIDE ANTIBIOTICS) 03/08/2023 2 - Rash 16 - Unknown TETANUS AND DIPHTHERIA TOXOIDS 07/27/2021 16 - Unknown TETRACYCLINES 07/27/2021 16 - Unknown TRIMETHOPRIM 03/09/2023 16 - Unknown ZOFRAN (ONDANSETRON) 07/27/2021 16 - Unknown Date Reviewed: 11/07/2023 Reviewed by: Paolo Casillas APRN.OPERATING ENGINEER APPRENTICE - Fully Assessed Reason for Visit: Lab Orders [1688] Cmt: nt Primary Visit Diagnosis:Abnormal SPEP [R77.8] Order(s):COMPLETE BLOOD COUNT AND DIFFERENTIAL [SQCBCDIF] Order #: [id number] FUTURE COMPREHENSIVE METABOLIC PANEL [SQCMP] Order #: [id number] FUTURE PROTEIN ELECTROPHORESIS SERUM W/INTERP [SQSEPG] Order #: [id number] FUTURE MONOCLONAL PROTEIN, SERUM (BLOOD) [SQSERMPA] Order #: [id number] FUTURE Prescriptions as of 07/06/2025 - carvedilol (COREG) 12.5 mg tablet TAKE 1 TABLET BY MOUTH TWICE A DAY WITH FOOD/MEAL - clopidogrel (PLAVIX) 75 mg tablet TAKE 8 TABLETS BY MOUTH ON DAY ONE THEN TAKE 1 TABLET BY MOUTH DAILY - furosemide (LASIX) 20 mg tablet Take 20 mg by mouth two times a day. - potassium chloride (K-TAB) 10 mEq tablet Take 10 mEq by mouth two times a day. - irbesartan (AVAPRO) 150 mg tablet - [...] twice daily. Problem List As Of Date: 07/06/2025 (None) Encounter Status:Closed by FANNY BEDOYA on 07/06/25 Normal [facility] Microalbumin [Mass/volume] i n UrineOrdered By: Nathan Hathaway on 06-24-2025 Albumin DL <= 20 mg/L (U) [Mass/Vol] 20.1 mg/dL <=30.0 [facility] No Panel InformationOrdered By: Nathan Hathaway on 06-24-2025 Urine Random Creatinine 84.52 mg/dL 20.00-300.0 0 [facility] Urine microalbumin/creatinin e mass ratioOrdered By: Nathan Hathaway on 06-24-2025 Albumin/Creatinine DL <= 20 mg/L (U) [Mass ratio] 237.8 mg/g High 0.0-29.9 [facility] Comment on above: NO MICROALBUMINURIA 0-29 MG/GCLINICAL MICROALBUMINURIA 30-300 MG/GMACROALBUMINURIA >300 MG/G Albumin [Mass/volume] in Ser um or PlasmaOrdered By: Nathan Hathaway on 06-23-2025 Albumin [Mass/Vol] 3.2 g/dL 2.9-4.4 [facility] Basophils Auto (Bld) [#/Vol] Ordered By: Nathan Hathaway on 06-23-2025 Basophils (Bld) [#/Vol] 0.0 10 3/uL 0.0-0.1 [facility] Basophils/100 WBC Auto (Bld) Ordered By: Nathan Hathaway on 06-23-2025 Basophils/100 WBC (Bld) 0.7 % 0.2-2.0 [facility] Cholesterol in LDL Calc [Mas s/Vol]Ordered By: Nathan Hathaway on 06-23-2025 Cholesterol in LDL [Mass/Vol] 60.2 mg/dL [facility] Comment on above: <100 mg/dl [id number] 0-129 mg/dl NEAR OR ABOVE [id number] mg/dl BORDERLINE [id number] mg/dl HIGH>190 mg/dl VERY HIGH Cholesterol in VLDL Calc [Ma ss/Vol]Ordered By: Nathan Hathaway on 06-23-2025 Cholesterol in VLDL [Mass/Vol] 17.8 mg/dL [facility] Eosinophils/100 WBC Auto (Bl d)Ordered By: Nathan Hathaway on 06-23-2025 Eosinophils/100 WBC (Bld) 2.7 % 0.9-7.0 [facility] Erythrocyte distribution wid th Auto (RBC) [Ratio]Ordered By: Nathan Hathaway on 06-23-2025 Erythrocyte distribution width (RBC) [Ratio] 13.8 % 11.0-15.0 [facility] Globulin Calc (S) [Mass/Vol] Ordered By: Nathan Hathaway 06-23-2025 Globulin (S) [Mass/Vol] 3.3 g/dL [facility] Glomerular filtration rate ( GFR) estimation in non- AmericanOrdered By: Nathan Hathaway on 06-23-2025 GFR/1.73 sq M.predicted among non-blacks MDRD (S/P/Bld) [Vol rate/Area] 35 mL/min/{1.73_m2} Low >=60 mL/min/1.73 m 2 [facility] Hematocrit Auto (Bld) [Volum e fraction]Ordered By: Nathan Hathaway 06-23-2025 Hematocrit (Bld) [Volume fraction] 28.3 % Low 36.0-48.0 [facility] Hemoglobin [Mass/volume] in BloodOrdered By: Nathan Hathaway 06-23-2025 Hemoglobin (Bld) [Mass/Vol] 9.3 g/dL Low 12.0-16.0 [facility] IgA [Mass/volume] in Serum o r PlasmaOrdered By: Nathan Hathaway on 06-23-2025 IgA [Mass/Vol] 62 mg/dL Abnormal 64-422 [facility] IgG [Mass/volume] in Serum o r PlasmaOrdered By: Nathan Hathaway on 06-23-2025 IgG [Mass/Vol] 330 mg/dL Abnormal [id number] [facility] IgM [Mass/volume] in Serum o r PlasmaOrdered By: Nathan Hathaway on 06-23-2025 IgM [Mass/Vol] 325 mg/dL Abnormal 26-217 [facility] Immunoglobulin light chains. kappa.free [Mass/volume] in SerumOrdered By: Nathan Hathaway on 06-23-2025 Immunoglobulin light chains.kappa.free (S) [Mass/Vol] 224.6 mg/L Abnormal 3.3-19.4 [facility] Immunoglobulin light chains. kappa.free/Immunoglobulin light chains.lambda.free [MassOrdered By: Nathan Hathaway on 06-23-2025 Immunoglobulin light chains.kappa.free/Immu noglobulin light chains.lambda.free (S) [Mass ratio] 10.59 Abnormal 0.26-1.65 [facility] Comment on above: Performed at: [place] [id number] Director: Carlos Witt PhD, Phone: [phone] Immunoglobulin light chains. lambda.free [Mass/volume] in Serum or PlasmaOrdered By: Nathan Hathaway on 06-23-2025 Immunoglobulin light chains.lambda.free [Mass/Vol] 21.2 mg/L 5.7-26.3 [facility] Iron binding capacity [Mass/ volume] in Serum or PlasmaOrdered By: Nathan Hathaway on 06-23-2025 Iron binding capacity [Mass/Vol] 245.0 ug/dL Low 250.0-450.0 [facility] Iron saturation [Mass Fracti on] in Serum or PlasmaOrdered By: Nathan Hathaway on 06-23-2025 Iron saturation [Mass fraction] 14.3 % [facility] Laboratory - Chemistry and C hemistry - challengeOrdered By: Nathan Hathaway on 06-23-2025 ALP [Catalytic activity/Vol] 47 U/L 46-116 [facility] ALT [Catalytic activity/Vol] 18 U/L 14-59 [facility] AST [Catalytic activity/Vol] 18 U/L 15-37 [facility] Bilirubin [Mass/Vol] 0.5 mg/dL 0.2-1.0 [facility] Calcium [Mass/Vol] 8.9 mg/dL 8.5-10.1 [facility] Chloride [Moles/Vol] 104 mmol/L 98-107 [facility] Cholesterol [Mass/Vol] 123 mg/dL <=200 [facility] Cholesterol in HDL [Mass/Vol] 45 mg/dL 40-60 [facility] Comment on above: > or =60 mg/dl - LOW CARDIOVASCULAR RISK<40 mg/dl - HIGH CARDIOVASCULAR RISK CO2 [Moles/Vol] 30.2 mmol/L 21.0-32.0 [facility] Cobalamin (Vitamin B12) [Mass/Vol] 1089 pg/mL 232-1245 [facility] Comment on above: Performed at: [address] [id number] Director: Carlos Witt PhD, Phone: [phone] Creatinine [Mass/Vol] 1.45 mg/dL High 0.55-1.02 [facility] Ferritin [Mass/Vol] 176.0 ng/mL 8.0-252.0 [facility] Free T4 [Mass/Vol] 0.97 ng/dL 0.76-1.46 [facility] GFR/1.73 sq M.predicted MDRD (S/P/Bld) [Vol rate/Area] 42 mL/min/{1.73_m2} Low >=60 mL/min/1.73 m 2 [facility] Glucose [Mass/Vol] 94 mg/dL 74-106 [facility] Iron [Mass/Vol] 35.0 ug/dL Low 50.0-170.0 [facility] Potassium [Moles/Vol] 4.3 mmol/L 3.5-5.1 [facility] Protein [Mass/Vol] 0.2 g/dL Abnormal Not Observed [facility] Protein [Mass/Vol] 6.5 g/dL 6.4-8.2 [facility] Sodium [Moles/Vol] 142 mmol/L 136-145 [facility] Triglyceride [Mass/Vol] 89 mg/dL <=150 [facility] TSH Qn 5.101 m[IU]/L High 0.358-3.740 [facility] Urea nitrogen [Mass/Vol] 22.0 mg/dL High 7.0-18.0 [facility] Urea nitrogen/Creatinine [Mass ratio] 15.2 mg/mg [facility] Laboratory - Hematology and Cell countsOrdered By: Nathan Hathaway on 06-23-2025 Immature granulocytes/100 WBC (Bld) 0.4 % 0.0-0.5 [facility] Leukocytes [#/volume] correc miguel for nucleated erythrocytes in Blood by Automated counOrdered By: Nathan Hathaway on 06-23-2025 WBC corrected for nucl RBC Auto (Bld) [#/Vol] 5.6 10 3/uL 4.0-11.0 [facility] Lymphocytes Auto (Bld) [#/Vo l]Ordered By: Nathan Hathaway on 06-23-2025 Lymphocytes (Bld) [#/Vol] 0.8 10 3/uL Low 1.2-3.8 [facility] Lymphocytes/100 WBC Auto (Bl d)Ordered By: Nathan Hathaway on 06-23-2025 Lymphocytes/100 WBC (Bld) 14.4 % Low 20.5-60.0 [facility] MCH Auto (RBC) [Entitic mass ]Ordered By: Nathan Hathaway on 06-23-2025 MCH (RBC) [Entitic mass] 29.0 pg 26.7-34.0 [facility] MCHC Auto (RBC) [Mass/Vol]Or dered By: Nathan Hathaway on 06-23-2025 MCHC (RBC) [Mass/Vol] 32.9 g/dL 29.9-35.2 [facility] MCV Auto (RBC) [Entitic vol] Ordered By: Nathan Hathaway on 06-23-2025 MCV (RBC) [Entitic vol] 88.2 fL 81.0-99.0 [facility] Monocytes Auto (Bld) [#/Vol] Ordered By: Nathan Hathaway on 06-23-2025 Monocytes (Bld) [#/Vol] 0.5 10 3/uL 0.3-0.8 [facility] Monocytes/100 WBC Auto (Bld) Ordered By: Nathan Hathaway on 06-23-2025 Monocytes/100 WBC (Bld) 8.7 % 1.7-12.0 [facility] Neutrophils Auto (Bld) [#/Vo l]Ordered By: Nathan Hathaway on 06-23-2025 Neutrophils (Bld) [#/Vol] 4.1 10 3/uL 1.4-6.5 [facility] Neutrophils/100 WBC Auto (Bl d)Ordered By: Nathan Hathaway on 06-23-2025 Neutrophils/100 WBC (Bld) 73.1 % 43.0-75.0 [facility] No Panel InformationOrdered By: Nathan Hathaway on 06-23-2025 Eosinophils # (Auto) 0.2 10 3/uL 0.0-0.7 [facility] Folate 17.90 ng/mL 8.60-58.90 [facility] Immature Granulocyte # (Auto) 0.02 10 3/uL 0.00-0.03 [facility] Protein Electrophoresis Note Comment . [facility] Comment on above: Protein electrophore sis scan will follow via computer,mail, or loss prevention guard delivery. Platelet mean volume Auto (B ld) [Entitic vol]Ordered By: Nathan Hathaway on 06-23-2025 Platelet mean volume (Bld) [Entitic vol] 10.2 fL 9.5-13.5 [facility] Platelets Auto (Bld) [#/Vol] Ordered By: Nathan Hathaway on 06-23-2025 Platelets (Bld) [#/Vol] 270 10 3/uL 150-450 [facility] Protein [Mass/volume] in Ser um or PlasmaOrdered By: Nathan Hathaway on 06-23-2025 Protein [Mass/Vol] 5.7 g/dL Abnormal 6.0-8.5 [facility] RBC Auto (Bld) [#/Vol]Ordere d By: Nathan Hathaway on 06-23-2025 RBC (Bld) [#/Vol] 3.21 10 6/uL Low 4.20-5.40 [facility] Serum globulin measurement ( mass/volume)Ordered By: Nathan Hathaway on 06-23-2025 Globulin (S) [Mass/Vol] 2.5 g/dL 2.2-3.9 [facility] Serum or plasma albumin/glob ulin mass ratioOrdered By: Nathan Hathaway on 06-23-2025 Albumin/Globulin [Mass ratio] 1.0 {ratio} [facility] Albumin/Globulin [Mass ratio] 1.3 {ratio} 0.7-1.7 [facility] Serum or plasma alpha 1 glob ulin measurement by electrophoresis (mass/volume)Ordered By: Nathan Hathaway on 06-23-2025 Alpha 1 globulin Elph [Mass/Vol] 0.3 g/dL 0.0-0.4 [facility] Serum or plasma alpha 2 glob ulin measurement by electrophoresis (mass/volume)Ordered By: Nathan Hathaway on 06-23-2025 Alpha 2 globulin Elph [Mass/Vol] 1.0 g/dL 0.4-1.0 [facility] Serum or plasma anion gap de terminationOrdered By: Nathan Hathaway on 06-23-2025 Anion gap [Moles/Vol] 12.1 mmol/L [facility] Serum or plasma beta globuli n measurement by electrophoresis (mass/volume)Ordered By: Nathan Hathaway on 06-23-2025 Beta globulin Elph [Mass/Vol] 0.7 g/dL 0.7-1.3 [facility] Serum or plasma gamma globul in measurement by electrophoresis (mass/volume)Ordered By: Nathan Hathaway on 06-23-2025 Gamma globulin Elph [Mass/Vol] 0.5 g/dL 0.4-1.8 [facility] Serum or plasma immunoelectr ophoresis interpretationOrdered By: Nathan Hathaway on 06-23-2025 Interpretation IEP [Interp] Comment Abnormal . [facility] Comment on above: Immunofixation shows IgM monoclonal protein with kappalight chain specificity. Serum or plasma total choles terol/high density lipoprotein (HDL) cholesterol mass ratOrdered By: Nathan Hathaway on 06-23-2025 Cholesterol.total/Chol esterol in HDL [Mass ratio] 2.7 {ratio} [facility] Comment on above: 3.3 - 4.4 LOW RISK4. 4 - 7.1 AVERAGE RISK7.1 - 11.0 MODERATE RISK>11.0 HIGH RISK Estimated glomerular filtrat ion rate (GFR) non- Americanon 03-18-2025 GFR/1.73 sq M.predicted among non-blacks MDRD (S/P/Bld) [Vol rate/Area] Estimated glomerular filtration rate (GFR) non- Low >=60 mL/min/1.73 m 2 [facility] GFR/1.73 sq M.predicted among non-blacks MDRD (S/P/Bld) [Vol rate/Area] 31 mL/min/{1.73_m2} Low >=60 mL/min/1.73 m 2 [facility] Laboratory - Chemistry and C hemistry - challengeon 03-18-2025 Calcium [Mass/Vol] 8.9 mg/dL 8.5-10.1 [facility] Chloride [Moles/Vol] 105 mmol/L 98-107 [facility] CO2 [Moles/Vol] 30.7 mmol/L 21.0-32.0 [facility] Creatinine [Mass/Vol] 1.60 mg/dL High 0.55-1.02 [facility] GFR/1.73 sq M.predicted MDRD (S/P/Bld) [Vol rate/Area] 37 mL/min/{1.73_m2} Low >=60 mL/min/1.73 m 2 [facility] Glucose [Mass/Vol] 112 mg/dL High 74-106 [facility] Potassium [Moles/Vol] 4.4 mmol/L 3.5-5.1 [facility] Sodium [Moles/Vol] 145 mmol/L 136-145 [facility] TSH Qn 3.657 m[IU]/L 0.358-3.740 [facility] Urea nitrogen [Mass/Vol] 33.0 mg/dL High 7.0-18.0 [facility] Urea nitrogen/Creatinine [Mass ratio] 20.6 mg/mg [facility] Serum or plasma anion gap de terminationon 03-18-2025 Anion gap [Moles/Vol] Serum or plasma an ion gap determination [facility] Anion gap [Moles/Vol] 13.7 mmol/L [facility] TRANSTHORACIC ECHO (TTE) COM PLETEon 03-17-2025 TRANSTHORACIC ECHO (TTE) COMPLETE [address], Suite [facility], [place] [address] TRANSTHORACIC ECHOCARDIOGRAM REPORT Patient Name: LASHAUN JOAQUIN Reading Physician: [id number] Bryce Guy MD, [facility] Study Date: 03/17/2025 Ordering Provider: [id number] HOLDEN ROSADO MRN/PID: [id number] Fellow: Nurse: Date of /Age: 11 1940 / Diet Tech: Nicolasa taylor RDCS, RVT Gender Assigned at F Additional Staff: : Height: 165.10 cm Admit Date: Weight: 90.72 kg Admission Status: BSA / BMI: 1.98 m2 / 33.28 Department Location: [facility] kg/m2 [facility] [place] Blood Pressure: 120 /64 mmHg Study Type: TRANSTHORACIC ECHO (TTE) COMPLETE Diagnosis/ICD: Essential (primary) hypertension-I10; Palpitations-R00.2 Indication: CAD, PTCA-2022, Edema, Hyperlipidemia, Former Smoker CPT Codes: Echo Complete w Full Doppler-26365 Study Detail: The following Echo studies were [...] Normal Ranges: RV (more content not included)... [facility] Acanthocytes [Presence] in B lood by Light microscopyOrdered By: Jorge L Cruz on 02-12-2025 Acanthocytes LM Ql (Bld) Acanthocytes [Presence] in Blood by Light microscopy [facility] Alanine aminotransferase [En zymatic activity/volume] in Serum or PlasmaOrdered By: Jorge L Cruz on 02-12-2025 ALT [Catalytic activity/Vol] Alanine aminotransferase [Enzymatic activity/volume] in Serum or Plasma 7-52 [facility] Albumin [Mass/volume] in Ser um or Plasma by Bromocresol green (BCG) dye binding methoOrdered By: Jorge L Cruz on 02-12-2025 Albumin BCG dye [Mass/Vol] Albumin [Mass/volume] in Serum or Plasma by Bromocresol green (BCG) dye binding metho 3.5-5.7 [facility] Alkaline phosphatase [Enzyma tic activity/volume] in Serum or PlasmaOrdered By: Jorge L Cruz on 02-12-2025 ALP [Catalytic activity/Vol] Alkaline phosphatase [Enzymatic activity/volume] in Serum or Plasma 34-104 [facility] Anisocytosis LM Ql (Bld)Orde red By: Jorge L Cruz on 02-12-2025 Anisocytosis Ql (Bld) Anisocytosis [Pres ence] in Blood by Light microscopy [facility] Aspartate aminotransferase [ Enzymatic activity/volume] in Serum or PlasmaOrdered By: Jorge L Cruz on 02-12-2025 AST [Catalytic activity/Vol] Aspartate aminotransferase [Enzymatic activity/volume] in Serum or Plasma 13-39 [facility] B-Type Natriuretic Peptideon 02-12-2025 Natriuretic peptide B (Bld) [Mass/Vol] 246.0 pg/mL High 5-100 [facility] Comment on above: Result Comment: PERF ORMED BY: [facility] [address] [facility] [place] [id number] PATHOLOGIST DESK CLERK RAMEZ MONTES M.D. Performed By: #### S CAN CBC, CK, HS TROP, BNP, PT, PTT ####[facility] [id number] [place] [address] [facility] Basophils Auto (Bld) [#/Vol] Ordered By: Jorge L Cruz on 02-12-2025 Basophils (Bld) [#/Vol] Automated basophil count 0.0-0.2 [facility] Basophils/100 WBC Auto (Bld) Ordered By: Jorge L Cruz on 02-12-2025 Basophils/100 WBC (Bld) Automated basophil % . [facility] Bilirubin.total [Mass/volume ] in Serum or PlasmaOrdered By: Jorge L Cruz on 02-12-2025 Bilirubin [Mass/Vol] Bilirubin.total [Mass/volume] in Serum or Plasma 0.3-1.0 [facility] Calcium [Mass/volume] in Ser um or PlasmaOrdered By: Jorge L Cruz on 02-12-2025 Calcium [Mass/Vol] Calcium [Mass/volume ] in Serum or Plasma 8.6-10.3 [facility] Carbon dioxide, total [Moles /volume] in Serum or PlasmaOrdered By: Jorge L Cruz on 02-12-2025 CO2 [Moles/Vol] Carbon dioxide, tota l [Moles/volume] in Serum or Plasma 21.0-31.0 [facility] Chloride [Moles/volume] in S courtney or PlasmaOrdered By: Jorge L Cruz on 02-12-2025 Chloride [Moles/Vol] Chloride [Moles/vol ume] in Serum or Plasma 98-107 [facility] Comprehensive Metabolic Pane arnoldo 02-12-2025 Albumin [Mass/Vol] 3.8 g/dL Normal 3.5-5.7 [facility] Comment on above: Performed By: #### T SH3, CMP, MG #### [facility] [address] Albumin/Globulin [Mass ratio] 1.6 {ratio} Normal [facility] Comment on above: Performed By: #### T SH3, CMP, MG #### [facility] [address] [place] [id number] [place] ALP [Catalytic activity/Vol] 43 U/L Normal 34-104 [facility] Comment on above: Performed By: #### T SH3, CMP, MG #### [facility] [address] [place] [id number] [place] ALT [Catalytic activity/Vol] 14 U/L Normal 7-52 [facility] Comment on above: Performed By: #### T SH3, CMP, MG #### [facility] [address] [place] [id number] [facility] Anion gap [Moles/Vol] 11.4 mmol/L Normal 6.0-15.0 [facility] Comment on above: Performed By: #### T SH3, CMP, MG #### [facility] [address] [place] [address] [place] AST [Catalytic activity/Vol] 19 U/L Normal 13-39 [facility] Comment on above: Performed By: #### T SH3, CMP, MG #### [facility] [address] [place] [address] [place] Bilirubin [Mass/Vol] 0.4 mg/dL Normal 0.3-1.0 [facility] Comment on above: Performed By: #### T SH3, CMP, MG #### [facility] [address] [place] [address] [place] Calcium [Mass/Vol] 9.1 mg/dL Normal 8.6-10.3 [facility] Comment on above: Performed By: #### T SH3, CMP, MG #### [facility] [address] [place] [address] [place] Chloride [Moles/Vol] 107 mmol/L Normal 98-107 [facility] Comment on above: Performed By: #### T SH3, CMP, MG #### [facility] [address] [place] [address] [place] CO2 [Moles/Vol] 27.7 mmol/L Normal 21.0-31.0 [facility] Comment on above: Performed By: #### T SH3, CMP, MG #### [facility] [address] [place] [address] [place] Creatinine [Mass/Vol] 1.28 mg/dL High 0.60-1.20 [facility] Comment on above: Performed By: #### T SH3, CMP, MG #### [facility] [address] [place] [address] [place] Creatinine Clr Calc Pharmacy 37.75 Normal [facility] Comment on above: Performed By: #### T SH3, CMP, MG #### [facility] [address] Estimated GFR 41.827 mL/Min Normal [facility] Comment on above: Performed By: #### T SH3, CMP, MG #### [address] Globulin (S) [Mass/Vol] 2.4 g/dL Normal [facility] Comment on above: Performed By: #### T SH3, CMP, MG #### [address] Glucose [Mass/Vol] 102 mg/dL High 70-100 [facility] Comment on above: Result Comment: [place] Glucose Reference Range is dependent on time and content of last meal. Glucose of more than 200 mg/dL in a nonstressed, ambulatory subject supports the diagnosis of Diabetes Mellitus. ADA recommended reference range Performed By: #### T SH3, CMP, MG #### [address] Potassium [Moles/Vol] 4.1 mmol/L Normal 3.5-5.1 [facility] Comment on above: Performed By: #### T SH3, CMP, MG #### [address] Protein [Mass/Vol] 6.2 g/dL Low 6.4-8.9 [facility] Comment on above: Performed By: #### T SH3, CMP, MG #### [address] Sodium [Moles/Vol] 142 mmol/L Normal 136-145 [facility] Comment on above: Performed By: #### T SH3, CMP, MG #### [address] Urea nitrogen [Mass/Vol] 28 mg/dL High 7-25 [facility] Comment on above: Performed By: #### T SH3, CMP, MG #### [place] [address] [place] Creatine Kinaseon 02-12-2025 CK [Catalytic activity/Vol] 35 U/L Normal 30-223 [facility] Comment on above: Performed By: #### S CAN CBC, CK, HS TROP, BNP, PT, PTT ####[facility] [place] [address] [place] Creatine kinase [Enzymatic a ctivity/volume] in Serum or PlasmaOrdered By: Jorge L Cruz on 02-12-2025 CK [Catalytic activity/Vol] Creatine kinase [Enzymatic activity/volume] in Serum or Plasma 30-223 [facility] Creatinine [Mass/volume] in Serum or PlasmaOrdered By: Jorge L Cruz on 02-12-2025 Creatinine [Mass/Vol] Creatinine [Mass/v olume] in Serum or Plasma High 0.60-1.20 [facility] ECG 12 lead ECGon 02-12-2025 ECG 12 lead ECG [facility] Main [address] [address] Electrocardiograph Report Signed Patient: Lashaun Joaquin MR#: [id number] : 1940 Acct:[id number] Age/Sex: 84 / F ADM Date: 02/12/25 Loc: ER Room: Type: [facility] ER Attending Dr: Ordering Provider: [...] rhythm Confirmed by Jorge L CRUZ DO ([id number]) on 02/12/2025 10:52:00 AM Referred By: Electronically Signed By: Jorge L CRUZ DO Transcribed By: MUS Signed By Jorge L Cruz DO 0 02/12/25 1052 Normal [facility] Eosinophils Auto (Bld) [#/Vo l]Ordered By: Jorge L Cruz on 02-12-2025 Eosinophils (Bld) [#/Vol] Automated eosinophil count 0.0-0.45 [facility] Eosinophils/100 WBC Auto (Bl d)Ordered By: Jorge L Cruz on 02-12-2025 Eosinophils/100 WBC (Bld) Automated eosinophil % . [facility] Erythrocyte distribution wid th Auto (RBC) [Ratio]Ordered By: Jorge L Cruz on 02-12-2025 Erythrocyte distribution width (RBC) [Ratio] Erythrocyte distribution width [Ratio] by Automated count 11.9-15.3 [facility] Erythrocyte morphology findi ng [Identifier] in BloodOrdered By: Jorge L Cruz on 02-12-2025 RBC morphology finding Nom (Bld) RBC morphology [facility] Globulin Calc (S) [Mass/Vol] Ordered By: Jorge L Cruz on 02-12-2025 Globulin (S) [Mass/Vol] Serum globulin measurement by calculation (mass/volume) [facility] Glucose [Mass/volume] in Ser um or PlasmaOrdered By: Jorge L Cruz on 02-12-2025 Glucose [Mass/Vol] Glucose [Mass/volume ] in Serum or Plasma High 70-100 [facility] Comment on above: ADA recommended refe [...] of Blood by Automated count Low 34.0-46.4 [facility] Hemoglobin [Mass/volume] in BloodOrdered By: Jorge L Cruz 02-12-2025 Hemoglobin (Bld) [Mass/Vol] Hemoglobin [Mass/volume] in Blood Low 11.8-15.4 [facility] INR in Platelet poor plasma by Coagulation assayOrdered By: Jorge L Cruz 02-12-2025 INR Coag (PPP) [Relative time] INR in Platelet poor plasma by Coagulation assay [facility] Comment on above: INR Therapeutic Rang [...] erythrocytes in Blood by Automated coun 3.8-11.6 [facility] Lymphocytes Auto (Bld) [#/Vo l]Ordered By: Jorge L Cruz on 02-12-2025 Lymphocytes (Bld) [#/Vol] Lymphocytes [#/volume] in Blood by Automated count Low 1.00-4.8 [facility] Lymphocytes/100 WBC Auto (Bl d)Ordered By: Jorge L Cruz on 02-12-2025 Lymphocytes/100 WBC (Bld) Lymphocytes/100 leukocytes in Blood by Automated count . [facility] MCH Auto (RBC) [Entitic mass ]Ordered By: Jorge L Cruz on 02-12-2025 MCH (RBC) [Entitic mass] MCH [Entitic mass] by Automated count 24.7-34.3 [facility] MCHC Auto (RBC) [Mass/Vol]Or dered By: Jorge L Cruz on 02-12-2025 MCHC (RBC) [Mass/Vol] MCHC [Mass/volume] by Automated count 32.0-35.0 [facility] MCV Auto (RBC) [Entitic vol] Ordered By: Jorge L Cruz on 02-12-2025 MCV (RBC) [Entitic vol] MCV [Entitic volume] by Automated count 80-100 [facility] Magnesiumon 02-12-2025 Magnesium [Mass/Vol] 2.3 mg/dL Normal 1.9-2.7 [facility] Comment on above: Performed By: #### T SH3, CMP, MG #### [address] Magnesium [Mass/volume] in S courtney or PlasmaOrdered By: Jorge L Cruz on 02-12-2025 Magnesium [Mass/Vol] Magnesium [Mass/vol ume] in Serum or Plasma 1.9-2.7 [facility] Microcytes LM Ql (Bld)Ordere d By: Jorge L Cruz on 02-12-2025 Microcytes Ql (Bld) Microcytes [Presence ] in Blood by Light microscopy [facility] Monocyte distribution width [Entitic volume] in Blood by AutomatedOrdered By: Jorge L Cruz on 02-12-2025 Monocyte distribution width Auto (Bld) [Entitic vol] Monocyte distribution width [Entitic volume] in Blood by Automated High 0.00-20.00 [facility] Comment on above: For adults in ED, MD W > 20.0 may be associated with a higher risk of sepsis during the first 12 hrs of hospital admission Monocytes Auto (Bld) [#/Vol] Ordered By: Jorge L Cruz on 02-12-2025 Monocytes (Bld) [#/Vol] Automated blood monocyte count 0.0-0.8 [facility] Monocytes/100 WBC Auto (Bld) Ordered By: Jorge L Cruz on 02-12-2025 Monocytes/100 WBC (Bld) Automated monocyte % . [facility] Natriuretic peptide B [Mass/ Vol]Ordered By: Jorge L Cruz on 02-12-2025 Natriuretic peptide B (Bld) [Mass/Vol] BNP ser/plas High 5-100 [facility] Neutrophils Auto (Bld) [#/Vo l]Ordered By: Jorge L Cruz on 02-12-2025 Neutrophils (Bld) [#/Vol] Neutrophils [#/volume] in Blood by Automated count 1.8-7.7 [facility] Neutrophils/100 WBC Auto (Bl d)Ordered By: Jorge L Cruz on 02-12-2025 Neutrophils/100 WBC (Bld) Automated neutrophil % . [facility] No Panel InformationOrdered By: Jorge L Cruz on 02-12-2025 Estimated GFR (CKD-EPI) 41.827 mL/Min [facility] [facility] Creatinine Clearance (Chem 37.75 [facility] Nucleated erythrocytes [Pres ence] in Blood by Automated countOrdered By: Jorge L Cruz on 02-12-2025 Nucleated RBC Auto Ql (Bld) Nucleated erythrocytes [Presence] in Blood by Automated count 0-0.5 [facility] Ovalocytes [Presence] in Blo od by Light microscopyOrdered By: Jorge L Cruz on 02-12-2025 Ovalocytes LM Ql (Bld) Ovalocyte detection [facility] Partial Thromboplastin Timeo n 02-12-2025 aPTT Coag (Bld) [Time] 29.8 s Normal 25.1-36.5 [facility] Comment on above: Result Comment: A he matocrit value greater than 55% may lead to inaccurate results in coagulation testing. Patients having hematocrit values >55% require a special collection tube for coagulation studies. Please contact the laboratory at [phone] for redraw instructions. PERFORMED BY: [facility] [address] [place] [address] PATHOLOGIST DESK CLERK RAMEZ MONTES M.D. Performed By: #### S CAN CBC, CK, HS TROP, BNP, PT, PTT ####[facility] [address] [place] [address] [facility] Platelet adequacy [Presence] in Blood by Light microscopyOrdered By: Jorge L Cruz on 02-12-2025 Platelets LM Ql (Bld) Platelet adequacy [Presence] in Blood by Light microscopy Normal [facility] Platelet mean volume Auto (B ld) [Entitic vol]Ordered By: Jorge L Cruz on 02-12-2025 Platelet mean volume (Bld) [Entitic vol] Platelet mean volume [Entitic volume] in Blood by Automated count 6.3-10.7 [facility] Platelet morphology finding [Identifier] in BloodOrdered By: Jorge L Cruz on 02-12-2025 Platelet morphology finding Nom (Bld) Platelet morphology finding [Identifier] in Blood Normal [facility] Platelets Auto (Bld) [#/Vol] Ordered By: Jorge L Cruz on 02-12-2025 Platelets (Bld) [#/Vol] Platelets [#/volume] in Blood by Automated count 150-450 [facility] Poikilocytosis [Presence] in Blood by Light microscopyOrdered By: Jorge L Cruz on 02-12-2025 Poikilocytosis LM Ql (Bld) Poikilocytosis [Presence] in Blood by Light microscopy [facility] Potassium [Moles/volume] in Serum or PlasmaOrdered By: Jorge L Cruz on 02-12-2025 Potassium [Moles/Vol] Potassium [Moles/v olume] in Serum or Plasma 3.5-5.1 [facility] Protein [Mass/volume] in Ser um or PlasmaOrdered By: Jorge L Cruz on 02-12-2025 Protein [Mass/Vol] Protein [Mass/volume ] in Serum or Plasma Low 6.4-8.9 [facility] Prothrombin Time INRon 02-12 INR Coag (PPP) [Relative time] 1.0 {INR} Normal [facility] Comment on above: Result Comment: [...] CBC, CK, HS TROP, BNP, PT, PTT ####[facility] [place] [id number] [facility] PT Coag (PPP) [Time] 11.3 s Normal 9.0-12.9 [facility] Comment on above: Result Comment: A he matocrit value greater than 55% may lead to inaccurate results in coagulation testing. Patients having hematocrit values >55% require a special collection tube for coagulation studies. Please contact the laboratory at [phone] for redraw instructions. Performed By: #### S CAN CBC, CK, HS TROP, BNP, PT, PTT ####[place] [id number] [place] [id number] [facility] Prothrombin time (PT)Ordered By: Jorge L Cruz on 02-12-2025 PT Coag (PPP) [Time] Prothrombin time (PT) 9.0- 12.9 [facility] Comment on above: A hematocrit value g reater than 55% may lead to inaccurate results in coagulation testing. Patients having hematocrit values >55% require a special collection tube for coagulation studies. Please contact the laboratory at [phone] for redraw instructions. RBC Auto (Bld) [#/Vol]Ordere d By: Jorge L Cruz on 02-12-2025 RBC (Bld) [#/Vol] Erythrocytes [#/volu me] in Blood by Automated count Low 3.60-5.00 [facility] Scan and CBCon 02-12-2025 Acanthocytes Slight Normal [facility] Comment on above: Performed By: #### S CAN CBC, CK, HS TROP, BNP, PT, PTT ####[facility] Anisocytosis Ql (Bld) Moderate Normal [facility] Comment on above: Performed By: #### S CAN CBC, CK, HS TROP, BNP, PT, PTT ####[address] Basophils (Bld) [#/Vol] 0.0 10*3/uL Normal 0.0-0.2 [facility] Comment on above: Performed By: #### S CAN CBC, CK, HS TROP, BNP, PT, PTT ####[address] Basophils/100 WBC (Bld) 0.6 % Normal . [facility] Comment on above: Performed By: #### S CAN CBC, CK, HS TROP, BNP, PT, PTT ####[address] Eosinophils (Bld) [#/Vol] 0.1 10*3/uL Normal 0.0-0.45 [facility] Comment on above: Performed By: #### S CAN CBC, CK, HS TROP, BNP, PT, PTT ####[address] Eosinophils/100 WBC (Bld) 1.5 % Normal . [facility] Comment on above: Performed By: #### S CAN CBC, CK, HS TROP, BNP, PT, PTT ####[address] Erythrocyte distribution width (RBC) [Ratio] 13.8 % Normal 11.9-15.3 [facility] Comment on above: Performed By: #### S CAN CBC, CK, HS TROP, BNP, PT, PTT ####[address] Hematocrit (Bld) [Volume fraction] 29.7 % Low 34.0-46.4 [facility] Comment on above: Performed By: #### S CAN CBC, CK, HS TROP, BNP, PT, PTT ####[address] Hemoglobin (Bld) [Mass/Vol] 10.2 g/dL Low 11.8-15.4 [facility] Comment on above: Performed By: #### S CAN CBC, CK, HS TROP, BNP, PT, PTT ####[address] Lymphocytes (Bld) [#/Vol] 0.9 10*3/uL Low 1.00-4.8 [facility] Comment on above: Performed By: #### S CAN CBC, CK, HS TROP, BNP, PT, PTT ####[address] Lymphocytes/100 WBC (Bld) 13.6 % Normal . [facility] Comment on above: Performed By: #### S CAN CBC, CK, HS TROP, BNP, PT, PTT ####[address] MCH (RBC) [Entitic mass] 28.9 pg Normal 24.7-34.3 [facility] Comment on above: Performed By: #### S CAN CBC, CK, HS TROP, BNP, PT, PTT ####[address] MCV (RBC) [Entitic vol] 83.9 fL Normal 80-100 [facility] Comment on above: Performed By: #### S CAN CBC, CK, HS TROP, BNP, PT, PTT ####[address] Mean Corpuscular HGB Conc 34.5 g/dL Normal 32.0-35.0 [facility] Comment on above: Performed By: #### S CAN CBC, CK, HS TROP, BNP, PT, PTT ####[address] Microcytosis Moderate Normal [facility] Comment on above: Performed By: #### S CAN CBC, CK, HS TROP, BNP, PT, PTT ####[address] Monocytes (Bld) [#/Vol] 0.4 10*3/uL Normal 0.0-0.8 [facility] Comment on above: Performed By: #### S CAN CBC, CK, HS TROP, BNP, PT, PTT ####[address] Monocytes/100 WBC (Bld) 21.49 % High 0.00-20.00 [facility] Comment on above: Result Comment: For adults in ED, MDW > 20.0 may be associated with a higher risk of sepsis during the first 12 hrs of hospital admission Performed By: #### S CAN CBC, CK, HS TROP, BNP, PT, PTT ####[address] Monocytes/100 WBC (Bld) 6.6 % Normal . [facility] Comment on above: Performed By: #### S CAN CBC, CK, HS TROP, BNP, PT, PTT ####[address] Neutrophils (Bld) [#/Vol] 4.9 10*3/uL Normal 1.8-7.7 [facility] Comment on above: Performed By: #### S CAN CBC, CK, HS TROP, BNP, PT, PTT ####[address] Neutrophils/100 WBC (Bld) 77.7 % Normal . [facility] Comment on above: Performed By: #### S CAN CBC, CK, HS TROP, BNP, PT, PTT ####[address] NRBC% 0.1 /100{WBC} Normal 0-0.5 [facility] Comment on above: Performed By: #### S CAN CBC, CK, HS TROP, BNP, PT, PTT ####[place] [address] [place] Ovalocytes Slight Normal [facility] Comment on above: Performed By: #### S CAN CBC, CK, HS TROP, BNP, PT, PTT ####[address] [place] [address] [facility] Platelet Estimate Normal Normal Normal [facility] Comment on above: Performed By: #### S CAN CBC, CK, HS TROP, BNP, PT, PTT ####[address] [address] [facility] Platelet mean volume (Bld) [Entitic vol] 7.7 fL Normal 6.3-10.7 [facility] Comment on above: Performed By: #### S CAN CBC, CK, HS TROP, BNP, PT, PTT ####[address] [address] [facility] Platelet Morphology Normal Normal Normal [facility] Comment on above: Result Comment: PERF ORMED BY: [facility] [address] [place] [address] PATHOLOGIST DESK CLERK RAMEZ MONTES M.D. Performed By: #### S CAN CBC, CK, HS TROP, BNP, PT, PTT ####[place] [id number] [facility] Platelets (Bld) [#/Vol] 383 10*3/uL Normal 150-450 [facility] Comment on above: Performed By: #### S CAN CBC, CK, HS TROP, BNP, PT, PTT ####[address] [address] [facility] Poikilocytosis Moderate Normal [facility] Comment on above: Performed By: #### S CAN CBC, CK, HS TROP, BNP, PT, PTT ####[place] [id number] [facility] RBC (Bld) [#/Vol] 3.54 10*6/uL Low 3.60-5.00 [facility] Comment on above: Performed By: #### S CAN CBC, CK, HS TROP, BNP, PT, PTT ####[address] [address] [facility] WBC (Bld) [#/Vol] 6.3 10*3/uL Normal 3.8-11.6 [facility] Comment on above: Performed By: #### S CAN CBC, CK, HS TROP, BNP, PT, PTT ####[facility] WBC (Bld) [#/Vol] 7.6 10*3/uL Normal 3.8-11.6 [facility] Comment on above: Performed By: #### S CAN CBC, CK, HS TROP, BNP, PT, PTT ####[facility] Serum or plasma albumin/glob ulin mass ratioOrdered By: Jorge L Cruz on 02-12-2025 Albumin/Globulin [Mass ratio] Serum or plasma albumin/globulin mass ratio [facility] Serum or plasma anion gap de terminationOrdered By: Jorge L Cruz on 02-12-2025 Anion gap [Moles/Vol] Serum or plasma an ion gap determination 6.0-15.0 [facility] Sodium [Moles/volume] in Ser um or PlasmaOrdered By: Jorge L Cruz on 02-12-2025 Sodium [Moles/Vol] Sodium [Moles/volume ] in Serum or Plasma 136-145 [facility] Thyroid Stimulating Hormoneo n 02-12-2025 TSH Qn 6.48 m[IU]/L High 0.45-5.33 [facility] Comment on above: Result Comment: PERF ORMED BY: [place] [address] PATHOLOGIST DESK CLERK RAMEZ MONTES M.D. Performed By: #### T SH3, CMP, MG #### [facility] [address] Thyrotropin [Units/volume] i n Serum or PlasmaOrdered By: Jorge L Cruz on 02-12-2025 TSH Qn Thyrotropin [Units/volume] in Serum or Plasma High 0.45-5.33 [facility] Troponin I High Sensitivityo n 02-12-2025 Troponin I High Sensitivity 10 Normal 0-15 [facility] Comment on above: Result Comment: The Troponin units of report have been changed to meet the Chest Pain Accreditation requirement, element EC5.M1l2. Troponin units are changed from pg/ml to ng/L. Also, the decimal is removed and results are in whole numbers. PERFORMED BY: [place] [address] PATHOLOGIST DESK CLERK RAMEZ MONTES M.D. Performed By: #### H S TROP ####[place] [id number] [facility] Troponin I High Sensitivity 10 Normal 0-15 [facility] Comment on above: Result Comment: The Troponin units of report have been changed to meet the Chest Pain Accreditation requirement, element EC5.M1l2. Troponin units are changed from pg/ml to ng/L. Also, the decimal is removed and results are in whole numbers. PERFORMED BY: [place] [address] PATHOLOGIST DESK CLERK RAMEZ MONTES M.D. Performed By: #### S CAN CBC, CK, HS TROP, BNP, PT, PTT ####[place] [id number] [facility] Troponin I.cardiac [Mass/vol ume] in Serum or Plasma by Detection limit <= 0.01 ng/Ordered By: Jorge L Cruz on 02-12-2025 Troponin I.cardiac DL <= 0.01 ng/mL [Mass/Vol] Troponin I.cardiac [Mass/volume] in Serum or Plasma by Detection limit <= 0.01 ng/ 0-15 [facility] Comment on above: The Troponin units [...] [Mass/volume] in Serum or Plasma High 7-25 [facility] WBC Auto (Bld) [#/Vol]Ordere d By: Jorge L Cruz on 02-12-2025 WBC (Bld) [#/Vol] Leukocytes [#/volume ] in Blood by Automated count 3.8-11.6 [facility] XR chest 2V*on 02-12-2025 XR chest 2V* [facility] Main [place] [address] [place] [address] XRay Report Signed Patient: Lashaun Joaquin MR#: [id number] : 1940 Acct:[id number] Age/Sex: 84 / F ADM Date: 02/12/25 Loc: ER Room: Type: [facility] ER Attending Dr: Copies to: Jorge [...] Lyon Jr., D.OManuel02/12/2025 8:16 AM Dictation Location: [place] [address] Transcribed By: [facility] 02/12/25815 Dictated By: Epifanio Lyon Jr, DO 02/12/25815 Signed By: 02/12/25815 Normal [facility] aPTT in Platelet poor plasma by Coagulation assayOrdered By: Jorge L Cruz on 02-12-2025 aPTT Coag (PPP) [Time] Activated partial thromboplastin time (aPTT) in platelet poor plasma by coagulation a 25.1-36.5 [facility] Comment on above: A hematocrit value g reater than 55% may lead to inaccurate results in coagulation testing. Patients having hematocrit values >55% require a special collection tube for coagulation studies. Please contact the laboratory at [phone] for redraw instructions. US Thyroid glandon [facility] [address] [place] [address] Ultrasound Report Signed Patient: LASHAUN JOAQUIN MR#: [id number] : 1940 Acct:[id number] Age/Sex: 84 / F ADM Date: 02/10/25 Loc: US Attending Dr: Reyna Esparza M.D. Ordering Physician: Reyna Esparza M.D. Date of Service: 02/10/25 Procedure(s): US thyroid Accession Number(s): [id number] cc: Nathan Hathaway D.O.; Reyna Esparza M.D. [place] [id number] Patient Name: LASHAUN JOAQUIN MRN: [facility]:[id number] date: 1940 Sex: F Assigned Patient Location: US Current Patient Location: US Accession/Order Number: [id number] Exam Date: 02/10/2025 11:24 Report Date: 02/10/2025 [...] Shelli Israel M.D.02/10/2025 11:33 AM Dictation Location: [place] [address] Electronically authenticated by: [id number] Y Date: 02/10/2025 11:33 Dictated By: Shelli Israel M.D. Signed By: 02/10/25 1136 DD/ 1133 TD/TT: Sales Contract Administrator: [facility] Radiology, Radiologi MD tana - 02/10/2025 [place] [address] Ultrasound Report Signed Patient: LASHAUN JOAQUIN MR#: [id number] : 1940 Acct:[id number] Age/Sex: 84 / F ADM Date: 02/10/25 Loc: US Attending Dr: Reyna Esaprza M.D. Ordering Physician: Reyna Esparza M.D. Date of Service: 02/10/25 Procedure(s): US thyroid Accession Number(s): [id number] cc: Nathan Hathaway D.O.; Reyna Esparza M.D. The [place] [address] Patient Name: LASHAUN JOAQUIN MRN: [facility]:[id number] date: 1940 Sex: F Assigned Patient Location: US Current Patient Location: US Accession/Order Number: [id number] Exam Date: 02/10/2025 11:24 Report Date: 02/10/2025 [...] Shelli Israel M.D.02/10/2025 11:33 AM Dictation Location: [place] [address] Electronically authenticated by: [id number] Y Date: 02/10/2025 11:33 Dictated By: Shelli Israel M.D. Signed By: 02/10/25 1136 DD/ 1133 TD/TT: Sales Contract Administrator: [facility] Radiology Study observation (narrative) [facility] US Thyroid glandOrdered By: Radiologist Radiology on 02-10-2025 [facility] Work Phone: Estimated glomerular filtrat ion rate (GFR) non- Americanon 01-23-2025 GFR/1.73 sq M.predicted among non-blacks MDRD (S/P/Bld) [Vol rate/Area] Estimated glomerular filtration rate (GFR) non- Low >=60 mL/min/1.73 m 2 [facility] Laboratory - Chemistry and C hemistry - challengeon 01-23-2025 Calcium [Mass/Vol] 8.9 mg/dL 8.5-10.1 [facility] Chloride [Moles/Vol] 106 mmol/L 98-107 [facility] CO2 [Moles/Vol] 28.0 mmol/L 21.0-32.0 [facility] Creatinine [Mass/Vol] 1.42 mg/dL High 0.55-1.02 [facility] GFR/1.73 sq M.predicted MDRD (S/P/Bld) [Vol rate/Area] 43 mL/min/{1.73_m2} Low >=60 mL/min/1.73 m 2 [facility] Glucose [Mass/Vol] 116 mg/dL High 74-106 [facility] Potassium [Moles/Vol] 3.9 mmol/L 3.5-5.1 [facility] Sodium [Moles/Vol] 145 mmol/L 136-145 [facility] Urea nitrogen [Mass/Vol] 21.0 mg/dL High 7.0-18.0 [facility] Urea nitrogen/Creatinine [Mass ratio] 14.8 mg/mg [facility] Serum or plasma anion gap de terminationon 01-23-2025 Anion gap [Moles/Vol] Serum or plasma an ion gap determination [facility] - Chemistry and C hemistry - challengeon 12-29-2024 Bilirubin Ql (U) Negative [facility] Glucose (U) [Mass/Vol] Negative [facility] Ketones Ql (U) Negative [facility] pH (U) 5 [pH] [facility] Specific gravity (U) [Rel density] 1.000 [facility] Urobilinogen (U) [Mass/Vol] Negative [facility] - Specimen inform ationon 12-29-2024 Appearance (U) clear [facility] Color (U) yellow [facility] - Urinalysison Leukocyte esterase Test strip Ql (U) Negative [facility] Nitrite Ql (U) Negative [facility] Protein Ql (U) 0.2 [facility] No Panel Informationon 12-29 Urine Occult Blood ++ [facility] Estimated glomerular filtrat ion rate (GFR) non- Americanon 12-18-2024 GFR/1.73 sq M.predicted among non-blacks MDRD (S/P/Bld) [Vol rate/Area] Estimated glomerular filtration rate (GFR) non- Low >=60 mL/min/1.73 m 2 [facility] - Chemistry and C hemistry - challengeon 12-18-2024 Calcium [Mass/Vol] 8.9 mg/dL 8.5-10.1 [facility] Chloride [Moles/Vol] 105 mmol/L 98-107 [facility] CO2 [Moles/Vol] 30.4 mmol/L 21.0-32.0 [facility] Creatinine [Mass/Vol] 1.57 mg/dL High 0.55-1.02 [facility] Free T4 [Mass/Vol] 0.90 ng/dL 0.76-1.46 [facility] GFR/1.73 sq M.predicted MDRD (S/P/Bld) [Vol rate/Area] 38 mL/min/{1.73_m2} Low >=60 mL/min/1.73 m 2 [facility] Glucose [Mass/Vol] 119 mg/dL High 74-106 [facility] Potassium [Moles/Vol] 4.1 mmol/L 3.5-5.1 [facility] Sodium [Moles/Vol] 143 mmol/L 136-145 [facility] TSH Qn 2.650 m[IU]/L 0.358-3.740 [facility] Urea nitrogen [Mass/Vol] 28.0 mg/dL High 7.0-18.0 [facility] Urea nitrogen/Creatinine [Mass ratio] 17.8 mg/mg [facility] Serum or plasma anion gap de terminationon 12-18-2024 Anion gap [Moles/Vol] Serum or plasma an ion gap determination [facility] INR in Platelet poor plasma by Coagulation assayOrdered By: Nathan Hathaway on 11-17-2024 INR Coag (PPP) [Relative time] INR in Platelet poor plasma by Coagulation assay [facility] Comment on above: INR Therapeutic Rang [...] valves: 3 - 4.5 Arnoldo 11-17-2024 L ---- Specimen: [id number] Received: 11/17/24 Status: SERENITY Bob Num: [id number] Spec Type: Cytology Subm Dr: Seth Ley DO Tissues: A FNA SLIDES PATH (FNA THYROID) Procedures: -, DIFF QWIK/3, PAPSTN/4 Age/ Patient Sex Location Account Attending Physician Lashaun Joaquin 84/F [id number] Nathan Hathaway DO SPEC NUM: [id number] RECD: 11/17/24-1307 STATUS: SERENITY BOB NUM: [id number] JED: 11/17/24- SUBM DR: Seth Ley DO ENTERED: 11/17/24-1308 [facility] DR: Nathan Hathaway DO SPEC TYPE: Cytology DEPT: HARDY ENTERED BY: [id number] RECV BY: [id number] ORDERED: -, DIFF QWIK/3, PAPSTN/4 ORDERED: -, DIFF QWIK/3, PAPSTN/4 Pathological Diagnosis Thyroid nodule, US-guided FNA: Satisfactory for evaluation. Benign (Bancroft category I). Clinical Information Thyroid Nodule,adrenal nodule, [...] additional pass requested. 11/17/2024, 12:20 PM Specimen: [id number] Received: 11/17/24 Status: SERENITY Meyer Num: [id number] Spec Type: Cytology Subm Dr: Seth Ley DO Tissues: A FNA SLIDES PATH (FNA THYROID) Procedures: -, DIFF QWIK/3, PAPSTN/4 Patient: Lashaun Joaquin [id number] (Continued) Specimen: [id number] Received: 11/17/24 (Continued) Signed (signature on file) Lala Mast MD 11/18/24 0857 Specimen: [id number] Received: 11/17/24 Status: SERENITY Meyer Num: [id number] Spec Type: Cytology Subm Dr: Seth Ley DO Tissues: A FNA SLIDES PATH (FNA THYROID) Procedures: -, DIFF QWIK/3, PAPSTN/4 Patient: Karla Joaquinelyn [id number] (Continued) Specimen: [id number] Received: 11/17/24 (Continued) CPT Codes 35436, 76446 Specimen: [id number] Received: 11/17/24-1307 Status: SERENITY Meyer Num: [id number] Spec Type: Cytology Subm Dr: Seth Ley DO Tissues: A FNA SLIDES PATH (FNA THYROID) Procedures: -, DIFF QWIK/3, PAPSTN/4 Patient: Lashaun Joaquin [id number] (Continued) Signed (signature on file) Lala Mast MD 11/18/24 0857 Normal [facility] Partial Thromboplastin Timeo n 11-17-2024 aPTT Coag ([facility]) [Time] 28.9 s Normal 25.1-36.5 [facility] Comment on above: Result Comment: A he matocrit value greater than 55% may lead to inaccurate results in coagulation testing. Patients having hematocrit values >55% require a special collection tube for coagulation studies. Please contact the laboratory at [phone] for redraw instructions. PERFORMED BY: [address] [address] PATHOLOGIST DESK CLERK RAMEZ MONTES M.D. Performed By: #### P TT, PT #### [place] [id number] [facility] Platelet Counton 11-17-2024 Platelets (Bld) [#/Vol] 253 10*3/uL Normal 150-450 [facility] Comment on above: Result Comment: PERF ORMED BY: [place] [address] PATHOLOGIST DESK CLERK RAMEZ MONTES M.D. Performed By: #### P LT #### [address] Platelets Auto (Bld) [#/Vol] Ordered By: Nathan Hathaway on 11-17-2024 Platelets (Bld) [#/Vol] Platelets [#/volume] in Blood by Automated count 150-450 [facility] Prothrombin Time INRon 11-17 INR Coag (PPP) [Relative time] 1.0 {INR} Normal [facility] Comment on above: Result Comment: [...] Performed By: #### P TT, PT #### [address] [address] [facility] PT Coag (PPP) [Time] 11.9 s Normal 9.0-12.9 [facility] Comment on above: Result Comment: A he matocrit value greater than 55% may lead to inaccurate results in coagulation testing. Patients having hematocrit values >55% require a special collection tube for coagulation studies. Please contact the laboratory at [phone] for redraw instructions. Performed By: #### P TT, PT #### [facility] [address] [place] [id number] [facility] Prothrombin time (PT)Ordered By: Nathan Hathaway on 11-17-2024 PT Coag (PPP) [Time] Prothrombin time (PT) 9.0- 12.9 [facility] Comment on above: A hematocrit value g reater than 55% may lead to inaccurate results in coagulation testing. Patients having hematocrit values >55% require a special collection tube for coagulation studies. Please contact the laboratory at [phone] for redraw instructions. US needle aspirationon 11-17 US needle aspiration [facility] Main [place] [address] [place] [address] Ultrasound Report Signed Patient: Lashaun Joaquin MR#: [id number] : 1940 Acct:[id number] Age/Sex: 84 / F ADM Date: 11/17/24 Loc: Room: Type: [facility] Attending Dr: Nathan Hathaway DO Ordering Provider: [...] Seth Ley M.D.11/17/2024 12:41 PM Dictation Location: [place] [address] Tech: Deja Lipscomb Transcribed By: LAURA 11/17/24 1241 Dictated By: Seth Ley DO 11/17/24 1159 Signed By: 11/17/24 1241 Normal [facility] aPTT in Platelet poor plasma by Coagulation assayOrdered By: Nathan Hathaway on 11-17-2024 aPTT Coag (PPP) [Time] Activated partial thromboplastin time (aPTT) in platelet poor plasma by coagulation a 25.1-36.5 [facility] Comment on above: A hematocrit value g reater than 55% may lead to inaccurate results in coagulation testing. Patients having hematocrit values >55% require a special collection tube for coagulation studies. Please contact the laboratory at [phone] for redraw instructions. Estimated glomerular filtrat ion rate (GFR) non- Americanon 09-12-2024 GFR/1.73 sq M.predicted among non-blacks MDRD (S/P/Bld) [Vol rate/Area] Estimated glomerular filtration rate (GFR) non- Low >=60 mL/min/1.73 m 2 [facility] - Chemistry and C hemistry - challengeon 09-12-2024 Calcium [Mass/Vol] 8.6 mg/dL 8.5-10.1 [facility] Chloride [Moles/Vol] 108 mmol/L High 98-107 [facility] CO2 [Moles/Vol] 27.0 mmol/L 21.0-32.0 [facility] Creatinine [Mass/Vol] 1.39 mg/dL High 0.55-1.02 [facility] Free T4 [Mass/Vol] 0.80 ng/dL 0.76-1.46 [facility] GFR/1.73 sq M.predicted MDRD (S/P/Bld) [Vol rate/Area] 44 mL/min/{1.73_m2} Low >=60 mL/min/1.73 m 2 [facility] Glucose [Mass/Vol] 85 mg/dL 74-106 [facility] Potassium [Moles/Vol] 4.5 mmol/L 3.5-5.1 [facility] Sodium [Moles/Vol] 144 mmol/L 136-145 [facility] TSH Qn 3.767 m[IU]/L High 0.358-3.740 [facility] Urea nitrogen [Mass/Vol] 20.0 mg/dL High 7.0-18.0 [facility] Urea nitrogen/Creatinine [Mass ratio] 14.4 mg/mg [facility] Serum or plasma anion gap de terminationon 09-12-2024 Anion gap [Moles/Vol] Serum or plasma an ion gap determination [facility] Estimated glomerular filtrat ion rate (GFR) non- Americanon 05-20-2024 GFR/1.73 sq M.predicted among non-blacks MDRD (S/P/Bld) [Vol rate/Area] 39 mL/min/{1.73_m2} Low >=60 [facility] - Chemistry and C hemistry - challengeon 05-20-2024 Calcium [Mass/Vol] 8.8 mg/dL 8.5-10.1 [facility] Chloride [Moles/Vol] 106 mmol/L 98-107 [facility] CO2 [Moles/Vol] 30.8 mmol/L 21.0-32.0 [facility] Creatinine [Mass/Vol] 1.30 mg/dL High 0.55-1.02 [facility] GFR/1.73 sq M.predicted MDRD (S/P/Bld) [Vol rate/Area] 48 mL/min/{1.73_m2} Low >=60 [facility] Glucose [Mass/Vol] 89 mg/dL 74-106 [facility] Potassium [Moles/Vol] 4.3 mmol/L 3.5-5.1 [facility] Sodium [Moles/Vol] 143 mmol/L 136-145 [facility] Urea nitrogen [Mass/Vol] 24.0 mg/dL High 7.0-18.0 [facility] Urea nitrogen/Creatinine [Mass ratio] 18.5 mg/mg [facility] Serum or plasma anion gap de terminationon 05-20-2024 Anion gap [Moles/Vol] 10.5 mmol/L [facility] Estimated glomerular filtrat ion rate (GFR) non- Americanon 04-30-2024 GFR/1.73 sq M.predicted among non-blacks MDRD (S/P/Bld) [Vol rate/Area] 37 mL/min/{1.73_m2} Low >=60 [facility] - Chemistry and C hemistry - challengeon 04-30-2024 Calcium [Mass/Vol] 8.5 mg/dL 8.5-10.1 [facility] Chloride [Moles/Vol] 106 mmol/L 98-107 [facility] CO2 [Moles/Vol] 28.7 mmol/L 21.0-32.0 [facility] Creatinine [Mass/Vol] 1.36 mg/dL High 0.55-1.02 [facility] GFR/1.73 sq M.predicted MDRD (S/P/Bld) [Vol rate/Area] 45 mL/min/{1.73_m2} Low >=60 [facility] Glucose [Mass/Vol] 98 mg/dL 74-106 [facility] Potassium [Moles/Vol] 4.3 mmol/L 3.5-5.1 [facility] Sodium [Moles/Vol] 142 mmol/L 136-145 [facility] Urea nitrogen [Mass/Vol] 26.0 mg/dL High 7.0-18.0 [facility] Urea nitrogen/Creatinine [Mass ratio] 19.1 mg/mg [facility] Serum or plasma anion gap de terminationon 04-30-2024 Anion gap [Moles/Vol] 11.6 mmol/L [facility] NM Heart Perfusion W stress [...] Faustino Zuniga 03/12/2024 4:34 PM Dictation workstation: [id number] Interpreted By: Faustino Zuniga, and Gustavo Ignacio STUDY: MYOCARDIAL PERFUSION STRESS TEST WITH LEXISCAN Performing facility: [facility], [address] [place] [address], [address], [place] [address] [facility] Provider: Holden Rosado RN, OPERATING ENGINEER APPRENTICE PCP: Dr. Ksenia Hathaway Supervising provider: Anthony Perry DO, [facility] INDICATION: ASHD HISTORY: Gender: F; Age: 83 y/o ; Height: HT 165.1 cm cm; Weight: WT 88.905 kg kg. CAD; High Cholesterol; HTN; Fatigue; Quit smoking 44 years ago. Cardiac catheterization on 2022. PTCA on 2022. COMPARISON: Previous nuclear testing completed at [facility]. ACCESSION NUMBER(S): [id number] ORDERING CLINICIAN: HOLDEN ROSADO TECHNIQUE: ONE DAY [...] PERFUSION STRESS TEST WITH LEXISCAN Performing facility: [facility], [address] [place] [address], [address], [place] [address] [facility] Provider: Holden Rosado RN, OPERATING ENGINEER APPRENTICE PCP: Dr. Ksenia Hathaway Supervising provider: Anthony Perry DO, [facility] INDICATION: ASHD HISTORY: Gender: F; Age: 83 y/o ; Height: HT 165.1 cm cm; Weight: WT 88.905 kg kg. CAD; High Cholesterol; HTN; Fatigue; Quit smoking 44 years ago. Cardiac catheterization on 2022. PTCA on 2022. COMPARISON: Previous nuclear testing completed [id number] at [facility]. ACCESSION NUMBER(S): [id number] ORDERING CLINICIAN: HOLDEN ROSADO TECHNIQUE: ONE DAY [...] Faustino Zuniga 03/12/2024 4:34 PM Dictation workstation: [id number] [facility] Work Phone: Radiology Study observation (narrative) [facility] Work Phone: NM Heart Perfusion W stress and W radionuclide IVOrdered By: Faustino Zuniga on 03-12-2024 [facility] Work Phone: Basic Metabolic Panelon 05-0 GFR/1.73 sq M.predicted MDRD (S/P/Bld) [Vol rate/Area] 39.134 mL/min/{1.73_m2} Normal [facility] Comment on above: Performed By: #### B MP ####[address] [address] [facility] Calcium [Mass/volume] in Ser um or PlasmaOrdered By: Holden Rosado on 03-05-2024 Calcium [Mass/Vol] 9.2 mg/dL Normal 8.6-10.3 [facility] Comment on above: Result Comment: PERF ORMED BY: [facility] [address] [place] [address] PATHOLOGIST DESK CLERK JAMAAL MO M.D. Performed By: #### B MP ####[place] [id number] [facility] Carbon dioxide, total [Moles /volume] in Serum or PlasmaOrdered By: Holden Rosado on 03-05-2024 CO2 [Moles/Vol] 32.1 mmol/L High 21.0-31.0 [facility] Comment on above: Performed By: #### B MP ####[address] [address] [place] Chloride [Moles/volume] in S courtney or PlasmaOrdered By: Holden Rosado on 03-05-2024 Chloride [Moles/Vol] 104 mmol/L Normal 98-107 [facility] Comment on above: Performed By: #### B MP ####[place] [id number] [place] Creatinine [Mass/volume] in Serum or PlasmaOrdered By: Holden Rosado on 03-05-2024 Creatinine [Mass/Vol] 1.36 mg/dL High 0.60-1.20 [facility] Comment on above: Performed By: #### B MP ####[place] [id number] [place] Glucose [Mass/volume] in Ser um or PlasmaOrdered By: Holden Rosado on 05-08-2024 Glucose [Mass/Vol] 79 mg/dL Normal 70-100 [facility] Comment on above: ADA recommended refe rence rangeRandom Glucose Reference Range is dependent on time and content of last meal. Glucose of more than 200 mg/dL in a nonstressed, ambulatory subject supports the diagnosis of Diabetes Mellitus. Result Comment: [place] om Glucose Reference Range is dependent on time and content of last meal. Glucose of more than 200 mg/dL in a nonstressed, ambulatory subject supports the diagnosis of Diabetes Mellitus. ADA recommended reference range Performed By: #### B MP ####[address] No Panel InformationOrdered By: Holden Rosado on 03-05-2024 Estimated GFR (CKD-EPI) 39.134 mL/Min [facility] Creatinine Clearance (Chem N/A [facility] Potassium [Moles/volume] in Serum or PlasmaOrdered By: Holden Rosado on 03-05-2024 Potassium [Moles/Vol] 5.2 mmol/L High 3.5-5.1 [facility] Comment on above: Performed By: #### B MP ####[address] Serum or plasma anion gap de terminationOrdered By: Holden Rosado on 03-05-2024 Anion gap [Moles/Vol] 10.1 mmol/L Normal 6.0-15.0 [facility] Comment on above: Performed By: #### B MP ####[address] Sodium [Moles/volume] in Ser um or PlasmaOrdered By: Holden Rosado on 03-05-2024 Sodium [Moles/Vol] 141 mmol/L Normal 136-145 [facility] Comment on above: Performed By: #### B MP ####[address] Urea nitrogen [Mass/volume] in Serum or PlasmaOrdered By: Holden Rosado on 03-05-2024 Urea nitrogen [Mass/Vol] 26 mg/dL High 7-25 [facility] Comment on above: Performed By: #### B MP ####[facility] [address] [place] [address] [facility] Basophils Auto (Bld) [#/Vol] on 02-20-2024 Basophils (Bld) [#/Vol] 0.0 10 3/uL 0.0-0.1 [facility] Basophils/100 WBC Auto (Bld) on 02-20-2024 Basophils/100 WBC (Bld) 0.8 % 0.2-2.0 [facility] Eosinophils/100 WBC Auto (Bl d)on 02-20-2024 Eosinophils/100 WBC (Bld) 2.8 % 0.9-7.0 [facility] Erythrocyte distribution wid th Auto (RBC) [Ratio]on 02-20-2024 Erythrocyte distribution width (RBC) [Ratio] 13.1 % 11.0-15.0 [facility] Estimated glomerular filtrat ion rate (GFR) non- Americanon 02-20-2024 GFR/1.73 sq M.predicted among non-blacks MDRD (S/P/Bld) [Vol rate/Area] 49 mL/min/{1.73_m2} >=60 [facility] Globulin Calc (S) [Mass/Vol] on 02-20-2024 Globulin (S) [Mass/Vol] 2.7 g/dL [facility] Hematocrit Auto (Bld) [Volum e fraction]on 02-20-2024 Hematocrit (Bld) [Volume fraction] 29.2 % 36.0-48.0 [facility] Hemoglobin [Mass/volume] in Bloodon 02-20-2024 Hemoglobin (Bld) [Mass/Vol] 9.5 g/dL 12.0-16.0 [facility] - Chemistry and C hemistry - challengeon 02-20-2024 Albumin [Mass/Vol] 2.9 g/dL 3.4-5.0 [facility] ALP [Catalytic activity/Vol] 44 U/L 46-116 [facility] ALT [Catalytic activity/Vol] 13 U/L 14-59 [facility] AST [Catalytic activity/Vol] 14 U/L 15-37 [facility] Bilirubin [Mass/Vol] 0.6 mg/dL 0.2-1.0 [facility] Calcium [Mass/Vol] 8.9 mg/dL 8.5-10.1 [facility] Chloride [Moles/Vol] 107 mmol/L 98-107 [facility] CO2 [Moles/Vol] 27.9 mmol/L 21.0-32.0 [facility] Creatinine [Mass/Vol] 1.08 mg/dL 0.55-1.02 [facility] GFR/1.73 sq M.predicted MDRD (S/P/Bld) [Vol rate/Area] 59 mL/min/{1.73_m2} >=60 [facility] Glucose [Mass/Vol] 83 mg/dL 74-106 [facility] Potassium [Moles/Vol] 3.8 mmol/L 3.5-5.1 [facility] Protein [Mass/Vol] 5.6 g/dL 6.4-8.2 [facility] Sodium [Moles/Vol] 141 mmol/L 136-145 [facility] Urea nitrogen [Mass/Vol] 18.0 mg/dL 7.0-18.0 [facility] Urea nitrogen/Creatinine [Mass ratio] 16.7 mg/mg [facility] - Hematology and Cell countson 02-20-2024 Immature granulocytes/100 WBC (Bld) 0.2 % 0.0-0.5 [facility] Leukocytes [#/volume] correc miguel for nucleated erythrocytes in Blood by Automated counon 02-20-2024 WBC corrected for nucl RBC Auto (Bld) [#/Vol] 4.7 10 3/uL 4.0-11.0 [facility] Lymphocytes Auto (Bld) [#/Vo l]on 02-20-2024 Lymphocytes (Bld) [#/Vol] 1.0 10 3/uL 1.2-3.8 [facility] Lymphocytes/100 WBC Auto (Bl d)on 02-20-2024 Lymphocytes/100 WBC (Bld) 21.8 % 20.5-60.0 [facility] MCH Auto (RBC) [Entitic mass ]on 02-20-2024 MCH (RBC) [Entitic mass] 29.2 pg 26.7-34.0 [facility] MCHC Auto (RBC) [Mass/Vol]on 02-20-2024 MCHC (RBC) [Mass/Vol] 32.5 g/dL 29.9-35.2 [facility] MCV Auto (RBC) [Entitic vol] on 02-20-2024 MCV (RBC) [Entitic vol] 89.8 fL 81.0-99.0 [facility] Monocytes Auto (Bld) [#/Vol] on 02-20-2024 Monocytes (Bld) [#/Vol] 0.7 10 3/uL 0.3-0.8 [facility] Monocytes/100 WBC Auto (Bld) on 02-20-2024 Monocytes/100 WBC (Bld) 14.2 % 1.7-12.0 [facility] Neutrophils Auto (Bld) [#/Vo l]on 02-20-2024 Neutrophils (Bld) [#/Vol] 2.8 10 3/uL 1.4-6.5 [facility] Neutrophils/100 WBC Auto (Bl d)on 02-20-2024 Neutrophils/100 WBC (Bld) 60.2 % 43.0-75.0 [facility] No Panel Informationon 02-19 Eosinophils # (Auto) 0.1 10 3/uL 0.0-0.7 [facility] Immature Granulocyte # (Auto) 0.01 10 3/uL 0.00-0.03 [facility] Platelet mean volume Auto (B ld) [Entitic vol]on 02-20-2024 Platelet mean volume (Bld) [Entitic vol] 10.5 fL 9.5-13.5 [facility] Platelets Auto (Bld) [#/Vol] on 02-20-2024 Platelets (Bld) [#/Vol] 250 10 3/uL 150-450 [facility] RBC Auto (Bld) [#/Vol]on RBC (Bld) [#/Vol] 3.25 10 6/uL 4.20-5.40 [facility] Serum or plasma albumin/glob ulin mass ratioon 02-20-2024 Albumin/Globulin [Mass ratio] 1.1 {ratio} [facility] Serum or plasma anion gap de terminationon 02-20-2024 Anion gap [Moles/Vol] 9.9 mmol/L [facility] Basophils Auto (Bld) [#/Vol] on 02-19-2024 Basophils (Bld) [#/Vol] 0.0 10 3/uL 0.0-0.1 [facility] Basophils/100 WBC Auto (Bld) on 02-19-2024 Basophils/100 WBC (Bld) 0.8 % 0.2-2.0 [facility] Cholesterol in LDL Calc [Mas s/Vol]on 02-19-2024 Cholesterol in LDL [Mass/Vol] 100.4 mg/dL [facility] Comment on above: <100 mg/dl [id number] 0-129 mg/dl NEAR OR ABOVE [id number] mg/dl BORDERLINE [id number] mg/dl HIGH>190 mg/dl VERY HIGH Cholesterol in VLDL Calc [Ma ss/Vol]on 02-19-2024 Cholesterol in VLDL [Mass/Vol] 15.6 mg/dL [facility] Eosinophils/100 WBC Auto (Bl d)on 02-19-2024 Eosinophils/100 WBC (Bld) 1.9 % 0.9-7.0 [facility] Erythrocyte distribution wid th Auto (RBC) [Ratio]on 02-19-2024 Erythrocyte distribution width (RBC) [Ratio] 13.2 % 11.0-15.0 [facility] Estimated glomerular filtrat ion rate (GFR) non- Americanon 02-19-2024 GFR/1.73 sq M.predicted among non-blacks MDRD (S/P/Bld) [Vol rate/Area] 44 mL/min/{1.73_m2} >=60 [facility] Globulin Calc (S) [Mass/Vol] on 02-19-2024 Globulin (S) [Mass/Vol] 2.8 g/dL [facility] Hematocrit Auto (Bld) [Volum e fraction]on 02-19-2024 Hematocrit (Bld) [Volume fraction] 31.2 % 36.0-48.0 [facility] Hemoglobin [Mass/volume] in Bloodon 02-19-2024 Hemoglobin (Bld) [Mass/Vol] 10.0 g/dL 12.0-16.0 [facility] - Chemistry and C hemistry - challengeon 02-19-2024 Albumin [Mass/Vol] 3.2 g/dL 3.4-5.0 [facility] ALP [Catalytic activity/Vol] 49 U/L 46-116 [facility] ALT [Catalytic activity/Vol] 15 U/L 14-59 [facility] AST [Catalytic activity/Vol] 15 U/L 15-37 [facility] Bilirubin [Mass/Vol] 0.5 mg/dL 0.2-1.0 [facility] Calcium [Mass/Vol] 9.4 mg/dL 8.5-10.1 [facility] Chloride [Moles/Vol] 108 mmol/L 98-107 [facility] Cholesterol [Mass/Vol] 158 mg/dL <=200 [facility] Cholesterol in HDL [Mass/Vol] 42 mg/dL 40-60 [facility] Comment on above: > or =60 mg/dl - LOW CARDIOVASCULAR RISK<40 mg/dl - HIGH CARDIOVASCULAR RISK CO2 [Moles/Vol] 28.7 mmol/L 21.0-32.0 [facility] Creatinine [Mass/Vol] 1.18 mg/dL 0.55-1.02 [facility] GFR/1.73 sq M.predicted MDRD (S/P/Bld) [Vol rate/Area] 53 mL/min/{1.73_m2} >=60 [facility] Glucose [Mass/Vol] 93 mg/dL 74-106 [facility] Potassium [Moles/Vol] 4.0 mmol/L 3.5-5.1 [facility] Protein [Mass/Vol] 6.0 g/dL 6.4-8.2 [facility] Sodium [Moles/Vol] 145 mmol/L 136-145 [facility] Triglyceride [Mass/Vol] 78 mg/dL <=150 [facility] TSH Qn 4.696 m[IU]/L 0.358-3.740 [facility] Urea nitrogen [Mass/Vol] 20.0 mg/dL 7.0-18.0 [facility] Urea nitrogen/Creatinine [Mass ratio] 16.9 mg/mg [facility] - Hematology and Cell countson 02-19-2024 Immature granulocytes/100 WBC (Bld) 0.6 % 0.0-0.5 [facility] Leukocytes [#/volume] correc miguel for nucleated erythrocytes in Blood by Automated counon 02-19-2024 WBC corrected for nucl RBC Auto (Bld) [#/Vol] 5.3 10 3/uL 4.0-11.0 [facility] Lymphocytes Auto (Bld) [#/Vo l]on 02-19-2024 Lymphocytes (Bld) [#/Vol] 1.1 10 3/uL 1.2-3.8 [facility] Lymphocytes/100 WBC Auto (Bl d)on 02-19-2024 Lymphocytes/100 WBC (Bld) 21.3 % 20.5-60.0 [facility] MCH Auto (RBC) [Entitic mass ]on 02-19-2024 MCH (RBC) [Entitic mass] 29.6 pg 26.7-34.0 [facility] MCHC Auto (RBC) [Mass/Vol]on 02-19-2024 MCHC (RBC) [Mass/Vol] 32.1 g/dL 29.9-35.2 [facility] MCV Auto (RBC) [Entitic vol] on 02-19-2024 MCV (RBC) [Entitic vol] 92.3 fL 81.0-99.0 [facility] Monocytes Auto (Bld) [#/Vol] on 02-19-2024 Monocytes (Bld) [#/Vol] 0.6 10 3/uL 0.3-0.8 [facility] Monocytes/100 WBC Auto (Bld) on 02-19-2024 Monocytes/100 WBC (Bld) 11.1 % 1.7-12.0 [facility] Neutrophils Auto (Bld) [#/Vo l]on 02-19-2024 Neutrophils (Bld) [#/Vol] 3.4 10 3/uL 1.4-6.5 [facility] Neutrophils/100 WBC Auto (Bl d)on 02-19-2024 Neutrophils/100 WBC (Bld) 64.3 % 43.0-75.0 [facility] No Panel Informationon 02-18 Eosinophils # (Auto) 0.1 10 3/uL 0.0-0.7 [facility] Immature Granulocyte # (Auto) 0.03 10 3/uL 0.00-0.03 [facility] Platelet mean volume Auto (B ld) [Entitic vol]on 02-19-2024 Platelet mean volume (Bld) [Entitic vol] 10.4 fL 9.5-13.5 [facility] Platelets Auto (Bld) [#/Vol] on 02-19-2024 Platelets (Bld) [#/Vol] 262 10 3/uL 150-450 [facility] RBC Auto (Bld) [#/Vol]on RBC (Bld) [#/Vol] 3.38 10 6/uL 4.20-5.40 [facility] Serum or plasma albumin/glob ulin mass ratioon 02-19-2024 Albumin/Globulin [Mass ratio] 1.1 {ratio} [facility] Serum or plasma anion gap de terminationon 02-19-2024 Anion gap [Moles/Vol] 12.3 mmol/L [facility] Serum or plasma total choles terol/high density lipoprotein (HDL) cholesterol mass anastasia 02-19-2024 Cholesterol.total/Chol esterol in HDL [Mass ratio] 3.8 {ratio} [facility] Comment on above: 3.3 - 4.4 LOW RISK4. 4 - 7.1 AVERAGE RISK7.1 - 11.0 MODERATE RISK>11.0 HIGH RISK Basophils Auto (Bld) [#/Vol] on 02-18-2024 Basophils (Bld) [#/Vol] 0.0 10 3/uL 0.0-0.1 [facility] Basophils/100 WBC Auto (Bld) on 02-18-2024 Basophils/100 WBC (Bld) 0.4 % 0.2-2.0 [facility] Eosinophils/100 WBC Auto (Bl d)on 02-18-2024 Eosinophils/100 WBC (Bld) 1.2 % 0.9-7.0 [facility] Erythrocyte distribution wid th Auto (RBC) [Ratio]on 02-18-2024 Erythrocyte distribution width (RBC) [Ratio] 13.2 % 11.0-15.0 [facility] Estimated glomerular filtrat ion rate (GFR) non- Americanon 02-18-2024 GFR/1.73 sq M.predicted among non-blacks MDRD (S/P/Bld) [Vol rate/Area] 34 mL/min/{1.73_m2} >=60 [facility] Hematocrit Auto (Bld) [Volum e fraction]on 02-18-2024 Hematocrit (Bld) [Volume fraction] 31.7 % 36.0-48.0 [facility] Hemoglobin [Mass/volume] in Bloodon 02-18-2024 Hemoglobin (Bld) [Mass/Vol] 10.3 g/dL 12.0-16.0 [facility] - Chemistry and C hemistry - challengeon 02-18-2024 Magnesium [Mass/Vol] 2.3 mg/dL 1.8-2.4 [facility] Natriuretic peptide B (Bld) [Mass/Vol] 800.0 pg/mL <=1800.0 [facility] Calcium [Mass/Vol] 9.0 mg/dL 8.5-10.1 [facility] Chloride [Moles/Vol] 106 mmol/L 98-107 [facility] CO2 [Moles/Vol] 30.4 mmol/L 21.0-32.0 [facility] Creatinine [Mass/Vol] 1.46 mg/dL 0.55-1.02 [facility] GFR/1.73 sq M.predicted MDRD (S/P/Bld) [Vol rate/Area] 42 mL/min/{1.73_m2} >=60 [facility] Glucose [Mass/Vol] 102 mg/dL 74-106 [facility] Potassium [Moles/Vol] 4.1 mmol/L 3.5-5.1 [facility] Sodium [Moles/Vol] 144 mmol/L 136-145 [facility] Urea nitrogen [Mass/Vol] 21.0 mg/dL 7.0-18.0 [facility] Urea nitrogen/Creatinine [Mass ratio] 14.4 mg/mg [facility] - Hematology and Cell countson 02-18-2024 Immature granulocytes/100 WBC (Bld) 0.7 % 0.0-0.5 [facility] Leukocytes [#/volume] correc miguel for nucleated erythrocytes in Blood by Automated counon 02-18-2024 WBC corrected for nucl RBC Auto (Bld) [#/Vol] 6.8 10 3/uL 4.0-11.0 [facility] Lymphocytes Auto (Bld) [#/Vo l]on 02-18-2024 Lymphocytes (Bld) [#/Vol] 0.8 10 3/uL 1.2-3.8 [facility] Lymphocytes/100 WBC Auto (Bl d)on 02-18-2024 Lymphocytes/100 WBC (Bld) 11.2 % 20.5-60.0 [facility] MCH Auto (RBC) [Entitic mass ]on 02-18-2024 MCH (RBC) [Entitic mass] 29.3 pg 26.7-34.0 [facility] MCHC Auto (RBC) [Mass/Vol]on 02-18-2024 MCHC (RBC) [Mass/Vol] 32.5 g/dL 29.9-35.2 [facility] MCV Auto (RBC) [Entitic vol] on 02-18-2024 MCV (RBC) [Entitic vol] 90.1 fL 81.0-99.0 [facility] Monocytes Auto (Bld) [#/Vol] on 02-18-2024 Monocytes (Bld) [#/Vol] 0.6 10 3/uL 0.3-0.8 [facility] Monocytes/100 WBC Auto (Bld) on 02-18-2024 Monocytes/100 WBC (Bld) 9.5 % 1.7-12.0 [facility] Neutrophils Auto (Bld) [#/Vo l]on 02-18-2024 Neutrophils (Bld) [#/Vol] 5.2 10 3/uL 1.4-6.5 [facility] Neutrophils/100 WBC Auto (Bl d)on 04-22-2024 Neutrophils/100 WBC (Bld) 77.0 % 43.0-75.0 [facility] No Panel Informationon 02-17 Troponin I High Sensitivity 11.1 pg/mL 4.0-51.3 [facility] Comment on above: CUT-OFF POINTS HAVE [...] Eosinophils # (Auto) 0.1 10 3/uL 0.0-0.7 [facility] Immature Granulocyte # (Auto) 0.05 10 3/uL 0.00-0.03 [facility] Platelet mean volume Auto (B ld) [Entitic vol]on 02-18-2024 Platelet mean volume (Bld) [Entitic vol] 10.1 fL 9.5-13.5 [facility] Platelets Auto (Bld) [#/Vol] on 02-18-2024 Platelets (Bld) [#/Vol] 255 10 3/uL 150-450 [facility] RBC Auto (Bld) [#/Vol]on RBC (Bld) [#/Vol] 3.52 10 6/uL 4.20-5.40 [facility] Serum or plasma anion gap de terminationon 02-18-2024 Anion gap [Moles/Vol] 11.7 mmol[facility]L [facility] Basophils Auto (Bld) [#/Vol] on 02-02-2024 Basophils (Bld) [#/Vol] 0.1 10 3/uL 0.0-0.1 [facility] Basophils/100 WBC Auto (Bld) on 02-02-2024 Basophils/100 WBC (Bld) 1.1 % 0.2-2.0 [facility] Cholesterol in LDL Calc [Mas s/Vol]on 02-02-2024 Cholesterol in LDL [Mass/Vol] 113.6 mg/dL [facility] Comment on above: <100 mg/dl [id number] 0-129 mg/dl NEAR OR ABOVE [id number] mg/dl BORDERLINE [id number] mg/dl HIGH>190 mg/dl VERY HIGH Cholesterol in VLDL Calc [Ma ss/Vol]on 02-02-2024 Cholesterol in VLDL [Mass/Vol] 10.4 mg/dL [facility] Eosinophils/100 WBC Auto (Bl d)on 02-02-2024 Eosinophils/100 WBC (Bld) 2.3 % 0.9-7.0 [facility] Erythrocyte distribution wid th Auto (RBC) [Ratio]on 02-02-2024 Erythrocyte distribution width (RBC) [Ratio] 13.1 % 11.0-15.0 [facility] Estimated glomerular filtrat ion rate (GFR) non- Americanon 02-02-2024 GFR/1.73 sq M.predicted among non-blacks MDRD (S/P/Bld) [Vol rate/Area] 34 mL/min/{1.73_m2} >=60 [facility] Globulin Calc (S) [Mass/Vol] on 02-02-2024 Globulin (S) [Mass/Vol] 3.0 g/dL [facility] Hematocrit Auto (Bld) [Volum e fraction]on 02-02-2024 Hematocrit (Bld) [Volume fraction] 34.7 % 36.0-48.0 [facility] Hemoglobin [Mass/volume] in Bloodon 02-02-2024 Hemoglobin (Bld) [Mass/Vol] 10.9 g/dL 12.0-16.0 [facility] Laboratory - Chemistry and C hemistry - challengeon 02-02-2024 Albumin [Mass/Vol] 3.4 g/dL 3.4-5.0 [facility] ALP [Catalytic activity/Vol] 52 U/L 46-116 [facility] ALT [Catalytic activity/Vol] 13 U/L 14-59 [facility] AST [Catalytic activity/Vol] 14 U/L 15-37 [facility] Bilirubin [Mass/Vol] 0.3 mg/dL 0.2-1.0 [facility] Calcium [Mass/Vol] 9.3 mg/dL 8.5-10.1 [facility] Chloride [Moles/Vol] 109 mmol/L 98-107 [facility] Cholesterol [Mass/Vol] 169 mg/dL <=200 [facility] Cholesterol in HDL [Mass/Vol] 45 mg/dL 40-60 [facility] Comment on above: > or =60 mg/dl - LOW CARDIOVASCULAR RISK<40 mg/dl - HIGH CARDIOVASCULAR RISK CO2 [Moles/Vol] 29.8 mmol/L 21.0-32.0 [facility] [facility] Creatinine [Mass/Vol] 1.47 mg/dL 0.55-1.02 [facility] GFR/1.73 sq M.predicted MDRD (S/P/Bld) [Vol rate/Area] 41 mL/min/{1.73_m2} >=60 [facility] Glucose [Mass/Vol] 104 mg/dL 74-106 [facility] Potassium [Moles/Vol] 4.9 mmol/L 3.5-5.1 [facility] Protein [Mass/Vol] 6.4 g/dL 6.4-8.2 [facility] Sodium [Moles/Vol] 147 mmol/L 136-145 [facility] Triglyceride [Mass/Vol] 52 mg/dL <=150 [facility] TSH Qn 3.613 m[IU]/L 0.358-3.740 [facility] Urea nitrogen [Mass/Vol] 24.0 mg/dL 7.0-18.0 [facility] Urea nitrogen/Creatinine [Mass ratio] 16.3 mg/mg [facility] Laboratory - Hematology and Cell countson 02-02-2024 Immature granulocytes/100 WBC (Bld) 0.4 % 0.0-0.5 [facility] Leukocytes [#/volume] correc miguel for nucleated erythrocytes in Blood by Automated counon 02-02-2024 WBC corrected for nucl RBC Auto (Bld) [#/Vol] 5.6 10 3/uL 4.0-11.0 [facility] Lymphocytes Auto (Bld) [#/Vo l]on 02-02-2024 Lymphocytes (Bld) [#/Vol] 1.1 10 3/uL 1.2-3.8 [facility] Lymphocytes/100 WBC Auto (Bl d)on 02-02-2024 Lymphocytes/100 WBC (Bld) 20.2 % 20.5-60.0 [facility] MCH Auto (RBC) [Entitic mass ]on 02-02-2024 MCH (RBC) [Entitic mass] 29.8 pg 26.7-34.0 [facility] MCHC Auto (RBC) [Mass/Vol]on 02-02-2024 MCHC (RBC) [Mass/Vol] 31.4 g/dL 29.9-35.2 [facility] MCV Auto (RBC) [Entitic vol] on 02-02-2024 MCV (RBC) [Entitic vol] 94.8 fL 81.0-99.0 [facility] Monocytes Auto (Bld) [#/Vol] on 02-02-2024 Monocytes (Bld) [#/Vol] 0.7 10 3/uL 0.3-0.8 [facility] Monocytes/100 WBC Auto (Bld) on 02-02-2024 Monocytes/100 WBC (Bld) 11.7 % 1.7-12.0 [facility] Neutrophils Auto (Bld) [#/Vo l]on 02-02-2024 Neutrophils (Bld) [#/Vol] 3.6 10 3/uL 1.4-6.5 [facility] Neutrophils/100 WBC Auto (Bl d)on 02-02-2024 Neutrophils/100 WBC (Bld) 64.3 % 43.0-75.0 [facility] No Panel Informationon 02-01 Eosinophils # (Auto) 0.1 10 3/uL 0.0-0.7 [facility] Immature Granulocyte # (Auto) 0.02 10 3/uL 0.00-0.03 [facility] Platelet mean volume Auto (B ld) [Entitic vol]on 02-02-2024 Platelet mean volume (Bld) [Entitic vol] 10.6 fL 9.5-13.5 [facility] Platelets Auto (Bld) [#/Vol] on 02-02-2024 Platelets (Bld) [#/Vol] 253 10 3/uL 150-450 [facility] RBC Auto (Bld) [#/Vol]on RBC (Bld) [#/Vol] 3.66 10 6/uL 4.20-5.40 [facility] Serum or plasma albumin/glob ulin mass ratioon 02-02-2024 Albumin/Globulin [Mass ratio] 1.1 {ratio} [facility] Serum or plasma anion gap de terminationon 02-02-2024 Anion gap [Moles/Vol] 13.1 mmol/L [facility] Serum or plasma total choles terol/high density lipoprotein (HDL) cholesterol mass anastasia 02-02-2024 Cholesterol.total/Chol esterol in HDL [Mass ratio] 3.8 {ratio} [facility] Comment on above: 3.3 - 4.4 LOW RISK4. 4 - 7.1 AVERAGE RISK7.1 - 11.0 MODERATE RISK>11.0 HIGH RISK UA RANDOM W/MICROSCOPICon Clarity (U) CLEAR CLEAR [employer] Other Color (U) DK YELLOW YELLOW [employer] Other Ketones Ql (U) Negative NEGATIVE mg/dL [employer] Other Leukocyte esterase Test strip Ql (U) Negative NEGATIVE [employer] Other pH (U) 6.5 [pH] 5.0-9.0 [employer] Other UA RANDOM W/MICROSCOPIC 0-2 #/HPF Abnormal NONE SEEN #/HPF [employer] Other UA RANDOM W/MICROSCOPIC 5-10 #/HPF Abnormal 0-2 #/HPF [employer] Other UA RANDOM W/MICROSCOPIC see note [employer] Other UA RANDOM W/MICROSCOPIC 1.010 1.005-1.025 [employer] Other UA RANDOM W/MICROSCOPIC Negative NEGATIVE [employer] Other UA RANDOM W/MICROSCOPIC LARGE Abnormal NEGATIVE [employer] Other UA RANDOM W/MICROSCOPIC Positive Abnormal NEGATIVE [employer] Other UA RANDOM W/MICROSCOPIC 1.0 EU/dL 0.2-1.0 EU/dL [place] [facility] Other UA RANDOM W/MICROSCOPIC TRACE #/HPF Abnormal NONE SEEN #/HPF [place] [facility] Other UA RANDOM W/MICROSCOPIC NONE SEEN NONE SEEN [place] [facility] Other UA RANDOM W/MICROSCOPIC RARE #/LPF NONE/RARE #/LPF [place] [facility] Other UA RANDOM W/MICROSCOPIC None Seen #/HPF None Seen #/HPF [place] [facility] Other UA RANDOM W/MICROSCOPIC NONE SEEN #/LPF NONE SEEN #/LPF [place] [facility] Other Urinalysis - DIPSTICKon 06-29 Appearance (U) clear [place] Other Bilirubin Ql (U) Negative [employer] Other Color (U) light yellow [employer] Other Glucose Ql (U) Negative [place] Other Hemoglobin Ql (U) +++ [employer] Other Ketones Ql (U) Negative [place] Other Leukocyte esterase Test strip Ql (U) Negative [employer] Other Nitrite Ql (U) Negative [place] Other pH (U) 0.2 [pH] [employer] Other Protein Ql (U) trace [place] Other Specific gravity (U) [Rel density] 1.005 [employer] Other Urobilinogen (U) [Mass/Vol] off chart [employer] Other Urinalysis - DIPSTICK [place] Other ESR Westergren method (Bld) [Velocity]on 06-05-2023 ESR (Bld) [Velocity] 119 mm/h High 0 - 20 mm/hr [facility] FERRITIN BLDon 06-05-2023 Ferritin [Mass/Vol] 160.0 ng/mL 14.7 - 205.1 ng/mL [facility] Iron and Iron binding capaci ty panelon 06-05-2023 Iron [Mass/Vol] 45 ug/dL 41 - 186 ug/dL [facility] Iron binding capacity [Mass/Vol] 252 ug/dL 232 - 386 ug/dL [facility] Iron/TIBC [Molar ratio] 17.9 % 15.0 - 57.0 % [facility] Basic metabolic 2000 panelon 06-04-2023 Anion gap [Moles/Vol] 10 mmol/L 9 - 18 mmol/L [facility] Calcium [Mass/Vol] 9.2 mg/dL 8.5 - 10. 2 mg/dL [facility] Chloride [Moles/Vol] 106 mmol/L High 97 - 10 5 mmol/L [facility] CO2 [Moles/Vol] 27 mmol/L 22 - 30 mmol/L [facility] Creatinine [Mass/Vol] 1.09 mg/dL High 0.58 - 0.96 mg/dL [facility] Estimated Glomerular Filtration Rate 51 mL/min/1.73m Low >=60 mL/min/1.73 m [facility] Glucose [Mass/Vol] 116 mg/dL High 74 - 99 mg/dL [facility] Potassium [Moles/Vol] 4.3 mmol/L 3.7 - 5.1 mmol/L [facility] Sodium [Moles/Vol] 143 mmol/L 136 - 144 mmol/L [facility] Urea nitrogen [Mass/Vol] 19 mg/dL 7 - 21 mg/dL [facility] CBC W Auto Differential pane l (Bld)on 06-04-2023 Basophils (Bld) [#/Vol] 0.04 10*3/uL <0.11 k/uL [facility] Basophils/100 WBC (Bld) 0.8 % [facility] Differential cell count method Nom (Bld) Auto [facility] Eosinophils (Bld) [#/Vol] 0.14 10*3/uL <0.46 k/uL [facility] Eosinophils/100 WBC (Bld) 2.9 % [facility] Erythrocyte distribution width (RBC) [Ratio] 13.6 % 11.5 - 15.0 % [facility] Hematocrit (Bld) [Volume fraction] 28.8 % Low 36.0 - 46.0 % [facility] Hemoglobin (Bld) [Mass/Vol] 9.2 g/dL Low 11.5 - 15.5 g/dL [facility] Immature granulocytes (Bld) [#/Vol] <0.10 k/uL [facility] Immature granulocytes/100 WBC (Bld) 0.4 % [facility] Lymphocytes (Bld) [#/Vol] 0.83 10*3/uL Low 1.00 - 4.00 k/uL [facility] Lymphocytes/100 WBC (Bld) 17.4 % [facility] MCH (RBC) [Entitic mass] 29.6 pg 26.0 - 34.0 pg [facility] MCHC (RBC) [Mass/Vol] 31.9 g/dL 30.5 - 36.0 g/dL [facility] MCV (RBC) [Entitic vol] 92.6 fL 80.0 - 100.0 fL [facility] Monocytes (Bld) [#/Vol] 0.40 10*3/uL <0.87 k/uL [facility] Monocytes/100 WBC (Bld) 8.4 % [facility] Neutrophils (Bld) [#/Vol] 3.35 10*3/uL 1.45 - 7.50 k/uL [facility] Neutrophils/100 WBC (Bld) 70.1 % [facility] Nucleated RBC (Bld) [#/Vol] <0.01 k/uL [facility] Nucleated RBC/100 WBC (Bld) [Ratio] 0.0 /100 WBC [facility] Platelet mean volume (Bld) [Entitic vol] 10.2 fL 9.0 - 12.7 fL [facility] Platelets (Bld) [#/Vol] 274 10*3/uL 150 - 400 k/uL [facility] RBC (Bld) [#/Vol] 3.11 10*6/uL Low 3.90 - 5.2 0 m/uL [facility] WBC (Bld) [#/Vol] 4.78 10*3/uL 3.70 - 11.00 k/uL [facility] RETIC COUNTon 06-04-2023 Reticulocytes (Bld) [#/Vol] 0.42978 10*3/uL 0.018 - 0.100 M/uL [facility] Reticulocytes (Bld) [#/Vol]o n 06-04-2023 Reticulocytes/100 RBC (Bld) 2.0 % 0.4 - 2.0 % [facility] Basophils Auto (Bld) [#/Vol] Ordered By: Lj Ryan on 05-18-2023 Basophils (Bld) [#/Vol] 0.0 10*3/uL 0.0-0.2 [facility] Basophils/100 WBC Auto (Bld) Ordered By: Lj Ryan on 05-18-2023 Basophils/100 WBC (Bld) 0.7 % . [facility] Calcium [Mass/volume] in Ser um or PlasmaOrdered By: Lj Ryan on 05-18-2023 Calcium [Mass/Vol] 8.9 mg/dL 8.6-10.3 [facility] Carbon dioxide, total [Moles /volume] in Serum or PlasmaOrdered By: Lj Ryan on 05-18-2023 CO2 [Moles/Vol] 30.5 mmol/L 21.0-31.0 [facility] Chloride [Moles/volume] in S [place] or PlasmaOrdered By: Lj Ryan on 05-18-2023 Chloride [Moles/Vol] 103 mmol/L 98-107 [facility] Creatinine [Mass/volume] in Serum or PlasmaOrdered By: Lj Ryan on 05-18-2023 Creatinine [Mass/Vol] 1.37 mg/dL 0.60-1.20 [facility] Eosinophils Auto (Bld) [#/Vo l]Ordered By: Lj Ryan on 05-18-2023 Eosinophils (Bld) [#/Vol] 0.1 10*3/uL 0.0-0.45 [facility] Eosinophils/100 WBC Auto (Bl d)Ordered By: Lj Ryan on 05-18-2023 Eosinophils/100 WBC (Bld) 1.9 % . [facility] Erythrocyte distribution wid th Auto (RBC) [Ratio]Ordered By: Lj Ryan on 05-18-2023 Erythrocyte distribution width (RBC) [Ratio] 14.1 % 11.9-15.3 [facility] Glucose [Mass/volume] in Ser um or PlasmaOrdered By: Lj Ryan on 05-18-2023 Glucose [Mass/Vol] 94 mg/dL 70-100 [facility] Comment on above: ADA recommended refe rence rangeRandom Glucose Reference Range is dependent on time and content of last meal. Glucose of more than 200 mg/dL in a nonstressed, ambulatory subject supports the diagnosis of Diabetes Mellitus. Hematocrit Auto (Bld) [Volum e fraction]Ordered By: Lj Ryan on 05-18-2023 Hematocrit (Bld) [Volume fraction] 28.2 % 34.0-46.4 [facility] Hemoglobin [Mass/volume] in BloodOrdered By: Lj Ryan on 05-18-2023 Hemoglobin (Bld) [Mass/Vol] 9.7 g/dL 11.8-15.4 [facility] Leukocytes [#/volume] correc miguel for nucleated erythrocytes in Blood by Automated counOrdered By: Lj Ryan on 05-18-2023 WBC corrected for nucl RBC Auto (Bld) [#/Vol] 6.0 10*3/uL 3.8-11.6 [facility] Lymphocytes Auto (Bld) [#/Vo l]Ordered By: Lj Ryan on 05-18-2023 Lymphocytes (Bld) [#/Vol] 0.9 10*3/uL 1.00-4.8 [facility] Lymphocytes/100 WBC Auto (Bl d)Ordered By: Lj Ryan on 05-18-2023 Lymphocytes/100 WBC (Bld) 15.1 % . [facility] MCH Auto (RBC) [Entitic mass ]Ordered By: Lj Ryan on 05-18-2023 MCH (RBC) [Entitic mass] 30.2 pg 24.7-34.3 [facility] MCHC Auto (RBC) [Mass/Vol]Or dered By: Lj Ryan on 05-18-2023 MCHC (RBC) [Mass/Vol] 34.4 g/dL 32.0-35.0 [facility] MCV Auto (RBC) [Entitic vol] Ordered By: Lj Ryan on 05-18-2023 MCV (RBC) [Entitic vol] 87.7 fL 80-100 [facility] Magnesium [Mass/volume] in [place] or PlasmaOrdered By: Lj Ryan on 05-18-2023 Magnesium [Mass/Vol] 2.1 mg/dL 1.9-2.7 [facility] Monocytes Auto (Bld) [#/Vol] Ordered By: Lj Ryan on 05-18-2023 Monocytes (Bld) [#/Vol] 0.5 10*3/uL 0.0-0.8 [facility] Monocytes/100 WBC Auto (Bld) Ordered By: Lj Ryan on 05-18-2023 Monocytes/100 WBC (Bld) 8.7 % . [facility] Neutrophils Auto (Bld) [#/Vo l]Ordered By: Lj Ryan on 05-18-2023 Neutrophils (Bld) [#/Vol] 4.4 10*3/uL 1.8-7.7 [facility] Neutrophils/100 WBC Auto (Bl d)Ordered By: Lj Ryan on 05-18-2023 Neutrophils/100 WBC (Bld) 73.6 % . [facility] No Panel InformationOrdered By: Lj Ryan on 05-18-2023 Estimated GFR (CKD-EPI) 39.034 mL/Min [facility] Creatinine Clearance (Chem 38.04 [facility] Nucleated erythrocytes [Pres ence] in Blood by Automated countOrdered By: Lj Ryan on 05-18-2023 Nucleated RBC Auto Ql (Bld) 0.1 /100{WBC} 0-0.5 [facility] Phosphate [Mass/volume] in S [place] or PlasmaOrdered By: Lj Ryan on 05-18-2023 Phosphate [Mass/Vol] 5.3 mg/dL 3.7-7.2 [facility] Platelet mean volume Auto (B ld) [Entitic vol]Ordered By: Lj Ryan on 05-18-2023 Platelet mean volume (Bld) [Entitic vol] 7.8 fL 6.3-10.7 [facility] Platelets Auto (Bld) [#/Vol] Ordered By: Lj Ryan on 05-18-2023 Platelets (Bld) [#/Vol] 314 10*3/uL 150-450 [facility] Potassium [Moles/volume] in Serum or PlasmaOrdered By: Lj Ryan on 05-18-2023 Potassium [Moles/Vol] 4.0 mmol/L 3.5-5.1 [facility] RBC Auto (Bld) [#/Vol]Ordere d By: Lj Ryan on 05-18-2023 RBC (Bld) [#/Vol] 3.21 10*6/uL 3.60-5.00 [facility] Serum or plasma anion gap de terminationOrdered By: Lj Ryan on 05-18-2023 Anion gap [Moles/Vol] 12.5 mmol/L 6.0-15.0 [facility] Sodium [Moles/volume] in Ser um or PlasmaOrdered By: Lj Ryan on 05-18-2023 Sodium [Moles/Vol] 142 mmol/L 136-145 [facility] Urea nitrogen [Mass/volume] in Serum or PlasmaOrdered By: Lj Ryan on 05-18-2023 Urea nitrogen [Mass/Vol] 21 mg/dL 7-25 [facility] WBC Auto (Bld) [#/Vol]Ordere d By: Lj Ryan on 05-18-2023 WBC (Bld) [#/Vol] 6.0 10*3/uL 3.8-11.6 [facility] Alanine aminotransferase [En zymatic activity/volume] in Serum or PlasmaOrdered By: Fernando Ch on 05-17-2023 ALT [Catalytic activity/Vol] 14 U/L 7-52 [facility] Albumin [Mass/volume] in Ser um or Plasma by Bromocresol green (BCG) dye binding methoOrdered By: Fernando Ch on 05-17-2023 Albumin BCG dye [Mass/Vol] 4.0 g/dL 3.5-5.7 [facility] Alkaline phosphatase [Enzyma tic activity/volume] in Serum or PlasmaOrdered By: Fernando Ch on 05-17-2023 ALP [Catalytic activity/Vol] 44 U/L 34-104 [facility] Aspartate aminotransferase [ Enzymatic activity/volume] in Serum or PlasmaOrdered By: Fernando Ch on 05-17-2023 AST [Catalytic activity/Vol] 16 U/L 13-39 [facility] Bilirubin.total [Mass/volume ] in Serum or PlasmaOrdered By: Fernando Ch on 05-17-2023 Bilirubin [Mass/Vol] 0.7 mg/dL 0.3-1.0 [facility] Creatine kinase [Enzymatic a ctivity/volume] in Serum or PlasmaOrdered By: Fernando Ch on 05-17-2023 CK [Catalytic activity/Vol] 49 U/L 30-223 [facility] Globulin Calc (S) [Mass/Vol] Ordered By: Fernando Ch on 05-17-2023 Globulin (S) [Mass/Vol] 2.9 g/dL [facility] Laboratory - CoagulationOrde red By: Fernando Ch on 05-17-2023 PT Coag (PPP) [Time] 12.5 s 9.0-12.9 [facility] Monocyte distribution width [Entitic volume] in Blood by AutomatedOrdered By: Fernando Ch on 05-17-2023 Monocyte distribution width Auto (Bld) [Entitic vol] 22.37 % 0.00-20.00 [facility] Comment on above: For adults in ED, MD W > 20.0 may be associated with a higher risk of sepsis during the first 12 hrs of hospital admission Natriuretic peptide B [Mass/ Vol]Ordered By: Fernando Ch on 05-17-2023 Natriuretic peptide B (Bld) [Mass/Vol] 450.0 pg/mL 5-100 [facility] Platelet poor plasma interna tional normalized ratio (INR) by coagulation assay (relatOrdered By: Fernando Ch on 05-17-2023 INR Coag (PPP) [Relative time] 1.1 {INR} [facility] Comment on above: INR Therapeutic Rang [...] on 05-17-2023 Protein [Mass/Vol] 6.9 g/dL 6.4-8.9 [facility] Serum or plasma albumin/glob ulin mass ratioOrdered By: Fernando Ch on 05-17-2023 Albumin/Globulin [Mass ratio] 1.4 {ratio} [facility] Troponin I.cardiac [Mass/vol ume] in Serum or Plasma by Detection limit <= 0.01 ng/Ordered By: Fernando Ch on 05-17-2023 Troponin I.cardiac DL <= 0.01 ng/mL [Mass/Vol] 10.2 pg/mL 0.0-15.0 [facility] Activated partial thrombopla stin time (aPTT) in platelet poor plasma by coagulation aOrdered By: Jonna Perry on 03-08-2023 aPTT Coag (PPP) [Time] 32.0 s 25.1-36.5 [facility] Band form neutrophils/100 WB C Manual cnt (Bld)Ordered By: Jonna Perry on 03-08-2023 Band form neutrophils/100 WBC (Bld) 4 % 0-5 [facility] Basophils Auto (Bld) [#/Vol] Ordered By: Jonna Perry on 03-08-2023 Basophils (Bld) [#/Vol] N/A [facility] Basophils/100 WBC Auto (Bld) Ordered By: Jonna Perry on 03-08-2023 Basophils/100 WBC (Bld) N/A [facility] Basophils/100 WBC Manual cnt (Bld)Ordered By: Jonna Perry on 03-08-2023 Basophils/100 WBC (Bld) 0 % 0-2 [facility] Carbon dioxide, total [Moles /volume] in Serum or PlasmaOrdered By: Jonna Perry on 03-08-2023 CO2 [Moles/Vol] 33.1 mmol/L 21.0-31.0 [facility] Chloride [Moles/volume] in S [place] or PlasmaOrdered By: Jonna Perry on 03-08-2023 Chloride [Moles/Vol] 104 mmol/L 98-107 [facility] Cholesterol [Mass/volume] in Serum or PlasmaOrdered By: Jonna Perry on 03-08-2023 Cholesterol [Mass/Vol] 151 mg/dL 140-200 [facility] Comment on above: Chol less than 200 m g/dl low riskChol 201-239 mg/dl borderline riskChol 240 mg/dl and greater high risk Cholesterol in LDL Calc [Mas s/Vol]Ordered By: Jonna Perry on 03-08-2023 Cholesterol in LDL [Mass/Vol] 100 mg/dL 0-100 [facility] Comment on above: LDL ATP III CLASSIFI CATIONLDL less than 100 mg/dL OptimalLDL 100-129 mg/dL Near or above optimalLDL 130-159 mg/dL Borderline highLDL 160-189 mg/dL HighLDL greater than 189 mg/dL Very high Cholesterol in VLDL Calc [Ma ss/Vol]Ordered By: Jonna Perry on 03-08-2023 Cholesterol in VLDL [Mass/Vol] 13 mg/dL [facility] Creatinine [Mass/volume] in Serum or PlasmaOrdered By: Jonna Perry on 03-08-2023 Creatinine [Mass/Vol] 1.14 mg/dL 0.60-1.20 [facility] Eosinophils Auto (Bld) [#/Vo l]Ordered By: Jonna Perry on 03-08-2023 Eosinophils (Bld) [#/Vol] N/A [facility] Eosinophils/100 WBC Auto (Bl d)Ordered By: Jonna Perry on 03-08-2023 Eosinophils/100 WBC (Bld) N/A [facility] Eosinophils/100 WBC Manual c nt (Bld)Ordered By: Jonna Perry on 03-08-2023 Eosinophils/100 WBC (Bld) 2 % 1-3 [facility] Erythrocyte distribution wid th Auto (RBC) [Ratio]Ordered By: Jonna Perry on 03-08-2023 Erythrocyte distribution width (RBC) [Ratio] 14.1 % 11.9-15.3 [facility] Hematocrit Auto (Bld) [Volum e fraction]Ordered By: Jonna Perry on 03-08-2023 Hematocrit (Bld) [Volume fraction] 30.7 % 34.0-46.4 [facility] Hemoglobin [Mass/volume] in BloodOrdered By: Jonna Perry on 03-08-2023 Hemoglobin (Bld) [Mass/Vol] 10.3 g/dL 11.8-15.4 [facility] Laboratory - Chemistry and C hemistry - challengeon 03-08-2023 Cholesterol [Mass/Vol] 151\S\151 Normal 140-200 [facility] Work Phone: Comment on above: Chol less than 200 m g/dl low risk Chol 201-239 mg/dl borderline risk Chol 240 mg/dl and greater high risk Cholesterol in LDL [Mass/Vol] 100\S\100 [facility] 0[facility] Work Phone: Comment on above: LDL ATP III CLASSIFI CATION LDL less than 100 mg/dL Optimal LDL 100-129 mg/dL Near or above optimal LDL 130-159 mg/dL Borderline high LDL 160-189 mg/dL High LDL greater than 189 mg/dL Very high Laboratory - CoagulationOrde red By: Jonna Perry on 03-08-2023 PT Coag (PPP) [Time] 12.2 s 9.0-12.9 [facility] Leukocytes [#/volume] correc miguel for nucleated erythrocytes in Blood by Automated counOrdered By: Jonna Perry on 03-08-2023 WBC corrected for nucl RBC Auto (Bld) [#/Vol] 6.2 10*3/uL 3.8-11.6 [facility] Lymphocytes Auto (Bld) [#/Vo l]Ordered By: Jonna Perry on 03-08-2023 Lymphocytes (Bld) [#/Vol] N/A [facility] Lymphocytes/100 WBC Auto (Bl d)Ordered By: Jonna Perry on 03-08-2023 Lymphocytes/100 WBC (Bld) N/A [facility] Lymphocytes/100 WBC Manual c nt (Bld)Ordered By: Jonna Perry on 03-08-2023 Lymphocytes/100 WBC (Bld) 16 % 18-42 [facility] MCH Auto (RBC) [Entitic mass ]Ordered By: Jonna Perry on 03-08-2023 MCH (RBC) [Entitic mass] 29.0 pg 24.7-34.3 [facility] MCHC Auto (RBC) [Mass/Vol]Or dered By: Jonna Perry on 03-08-2023 MCHC (RBC) [Mass/Vol] 33.6 g/dL 32.0-35.0 [facility] MCV Auto (RBC) [Entitic vol] Ordered By: Jonna Perry on 03-08-2023 MCV (RBC) [Entitic vol] 86.2 fL 80-100 [facility] Metamyelocytes/100 WBC Manua l cnt (Bld)Ordered By: Jonna Perry on 03-08-2023 Metamyelocytes/100 WBC (Bld) 1 % 0-0 [facility] Monocytes Auto (Bld) [#/Vol] Ordered By: Jonna Perry on 03-08-2023 Monocytes (Bld) [#/Vol] N/A [facility] Monocytes/100 WBC Auto (Bld) Ordered By: Jonna Perry on 03-08-2023 Monocytes/100 WBC (Bld) N/A [facility] Monocytes/100 WBC Manual cnt (Bld)Ordered By: Jonna Perry on 03-08-2023 Monocytes/100 WBC (Bld) 3 % 2-11 [facility] Neutrophils Auto (Bld) [#/Vo l]Ordered By: Jonna Perry on 03-08-2023 Neutrophils (Bld) [#/Vol] N/A [facility] Neutrophils/100 WBC Auto (Bl d)Ordered By: Jonna Perry on 03-08-2023 Neutrophils/100 WBC (Bld) N/A [facility] No Panel InformationOrdered By: Jonna Perry on 03-08-2023 Estimated GFR (CKD-EPI) 48.665 mL/Min [facility] Creatinine Clearance (Chem N/A [facility] No Panel Informationon 03-08 32.0\S\32.0 Normal 25.1-36.5 -[facility] y [address] DO Work Phone: Comment on above: PERFORMED BY:[facility] [place], [place] [id number] MEDICAL DIRECTORJAMAAL MO M.D. 1.1\S\1.1 Normal [facility] y 250 DO Work Phone: [phone] Comment on above: INR Therapeutic Rang [...] valves: 3 - 4.5 12.2\S\12.2 Normal 9.0-12.9 [facility] y 250 DO Work Phone: [phone] 9.0\S\9.0 Normal 6.3-10.7 [facility] y 250 DO Work Phone: [phone] 33.1\S\33.1 above high threshold 21.0-31.0 [facility] y 250 DO Work Phone: [phone] 104\S\104 Normal 98-107 [facility] Lu y 250 DO Work Phone: [phone] 5.1\S\5.1 Normal 3.5-5.1 [facility] y 250 DO Work Phone: [phone] 141\S\141 Normal 136-145 [facility] y 250 DO Work Phone: [phone] 21\S\21 Normal 7-25 [facility] 250 DO Work Phone: [phone] 48.665\S\48.665 Normal [facility] 250 DO Work Phone: [phone] 1.14\S\1.14 Normal 0.60-1.20 [facility] y 250 DO Work Phone: [phone] 4.0\S\4.0 Normal <5.0 [facility] 250 DO Work Phone: Comment on above: PERFORMED BY:[facility] [place], [place] [id number] MEDICAL DIRECTORJAMAAL MO M.D. 13\S\13 Normal [facility] Lu melton 250 DO Work Phone: 67\S\67 Normal 0-149 [facility] Lu melton 250 DO Work Phone: Comment on above: TRIG ATP III CLASSIF ICATION TRIG less than 150 mg/dL Normal TRIG 150-199 mg/dL Borderline high TRIG 200-500 mg/dL High TRIG greater than 500 mg/dL Very high Standard traceable to the Center for Disease Conrtrol and Prevention (CDC) test method. 38\S\38 Normal 35-85 [facility] Lu melton 250 DO Work Phone: Comment on above: HDL CHOL ATP-III CLA SSIFICATION Cardiovascular Risk HDL > or equal to 60 mg/dL LOW HDL < 40 mg/dL HIGH 74\S\74 above high threshold 50-70 [facility] Lu melton 250 DO Work Phone: 276\S\276 Normal 150-450 [facility] Lu melton 250 DO Work Phone: 14.1\S\14.1 Normal 11.9-15.3 [facility] Lu melton 250 DO Work Phone: [phone] 33.6\S\33.6 Normal 32.0-35.0 [facility] [employer] melton 250 DO Work Phone: 29.0\S\29.0 Normal 24.7-34.3 [facility] [employer] melton 250 DO Work Phone: 1\S\1 above high threshold 0-0 [facility] [employer] melton 250 DO Work Phone: 0\S\0 Normal 0-2 [facility] DO Work Phone: [phone] 2\S\2 Normal 1-3 [facility] DO Work Phone: [phone] 3\S\3 Normal 2-11 [facility] DO Work Phone: [phone] 16\S\16 below low threshold 18-42 [facility] DO Work Phone: [phone] 4\S\4 Normal 0-5 [facility] DO Work Phone: [phone] Slight Normal [facility] DO Work Phone: [phone] Comment on above: PERFORMED BY:[place] [id number] [place] [id number] MEDICAL DIRECTORJAMAAL MO M.D. Normal Normal Normal [facility] DO Work Phone: [phone] 86.2\S\86.2 Normal 80-100 [facility] DO Work Phone: [phone] 30.7\S\30.7 below low threshold 34.0-46.4 [facility] DO Work Phone: [phone] 10.3\S\10.3 below low threshold 11.8-15.4 [facility] 250 DO Work Phone: [phone] 3.56\S\3.56 below low threshold 3.60-5.00 [facility] DO Work Phone: [phone] 8.6\S\8.6 Normal 3.8-11.6 [facility] DO Work Phone: [phone] 6.2\S\6.2 Normal 3.8-11.6 [facility] DO Work Phone: [phone] Nucleated erythrocytes [Pres ence] in Blood by Automated countOrdered By: Jonna Perry on 03-08-2023 Nucleated RBC Auto Ql (Bld) N/A [facility] Ovalocyte detectionOrdered B y: Jonna Perry on 03-08-2023 Ovalocytes LM Ql (Bld) Slight [facility] Platelet adequacy [Presence] in Blood by Light microscopyOrdered By: Jonna Perry on 03-08-2023 Platelets LM Ql (Bld) Normal Normal [facility] Platelet mean volume Auto (B ld) [Entitic vol]Ordered By: Jonna Perry on 03-08-2023 Platelet mean volume (Bld) [Entitic vol] 9.0 fL 6.3-10.7 [facility] Platelet morphology finding [Identifier] in BloodOrdered By: Jonna Perry on 03-08-2023 Platelet morphology finding Nom (Bld) N/A [facility] Platelet poor plasma interna tional normalized ratio (INR) by coagulation assay (relatOrdered By: Jonna Perry on 03-08-2023 INR Coag (PPP) [Relative time] 1.1 {INR} [facility] Comment on above: INR Therapeutic Rang [...] 03-08-2023 Platelets (Bld) [#/Vol] 276 10*3/uL 150-450 [facility] Platelets Large [Presence] i n Blood by Light microscopyOrdered By: Jonna Perry on 03-08-2023 Platelets Large LM Ql (Bld) Slight [facility] Poikilocytosis [Presence] in Blood by Light microscopyOrdered By: Jonna Perry on 03-08-2023 Poikilocytosis LM Ql (Bld) Slight [facility] Potassium [Moles/volume] in Serum or PlasmaOrdered By: Jonna Perry on 03-08-2023 Potassium [Moles/Vol] 5.1 mmol/L 3.5-5.1 [facility] RBC Auto (Bld) [#/Vol]Ordere d By: Jonna Perry on 03-08-2023 RBC (Bld) [#/Vol] 3.56 10*6/uL 3.60-5.00 [facility] RBC morphologyOrdered By: Jonna Perry on 03-08-2023 RBC morphology finding Nom (Bld) N/A [facility] Segmented neutrophils/100 WB C Manual cnt (Bld)Ordered By: Jonna Perry on 03-08-2023 Segmented neutrophils/100 WBC (Bld) 74 % 50-70 [facility] Serum or plasma anion gap de terminationOrdered By: Jonna Perry on 03-08-2023 Anion gap [Moles/Vol] 9.0 mmol/L 6.0-15.0 [facility] Serum or plasma high density lipoprotein (HDL) cholesterol measurementOrdered By: Jonna Perry on 03-08-2023 Cholesterol in HDL [Mass/Vol] 38 mg/dL 35-85 [facility] Comment on above: HDL CHOL ATP-III CLA SSIFICATION Cardiovascular RiskHDL > or equal to 60 mg/dL LOWHDL < 40 mg/dL HIGH Serum or plasma total choles terol/high density lipoprotein (HDL) cholesterol mass ratOrdered By: Jonna Perry on 03-08-2023 Cholesterol.total/Chol esterol in HDL [Mass ratio] 4.0 {ratio} <5.0 [facility] Sodium [Moles/volume] in Ser um or PlasmaOrdered By: Jonna Perry on 03-08-2023 Sodium [Moles/Vol] 141 mmol/L 136-145 [facility] Triglyceride [Mass/volume] i n Serum or PlasmaOrdered By: Jonna Perry on 03-08-2023 Triglyceride [Mass/Vol] 67 mg/dL 0-149 [facility] Comment on above: TRIG ATP III CLASSIF ICATIONTRIG less than 150 mg/dL NormalTRIG 150-199 mg/dL Borderline highTRIG 200-500 mg/dL High TRIG greater than 500 mg/dL Very highStandard traceable to the Center for Disease Conrtrol and Prevention (CDC) test method. Urea nitrogen [Mass/volume] in Serum or PlasmaOrdered By: Jonna Perry on 03-08-2023 Urea nitrogen [Mass/Vol] 21 mg/dL 7-25 [facility] WBC Auto (Bld) [#/Vol]Ordere d By: Jonna Perry on 03-08-2023 WBC (Bld) [#/Vol] 8.6 10*3/uL 3.8-11.6 [facility] Office Visit (Cardiology)on 03-07-2023 Follow-up visit Diagnoses/Problems [...] associated with accelerated hypertension, was admitted to [place] briefly, diuresed approximately 14 pounds with diuretics. [...] complaint. Vitals Vital Signs Recorded: 07Mar2023 10:14AMRecorded: [id number] 10:04AM [id number], RUE, [id number] (more content not included)... Normal [facility] Tobacco Screening.on 023 Adult depression screening assessment No [facility] DO Work Phone: Fall risk assessment a) No falls within the last year [facility] DO Work Phone: Tobacco use status CPHS b) No [facility] DO Work Phone: CBC AUTO DIFFon 03-01-2023 BASO # 0.0 103/ul Normal 0.0-0.1 [facility] Comment on above: Performed By: #### C BC #### [facility] [address] [address] [address] Jose David Shanks Basophils/100 WBC (Bld) 0.5 % Normal 0.2-2.0 [facility] Comment on above: Performed By: #### C BC #### [facility] [address] [address] [address] Jose David Shanks EO # 0.1 103/ul Normal 0.0-0.7 [facility] Comment on above: Performed By: #### C BC #### [facility] [address] [address] [address] Jose David Shanks Eosinophils/100 WBC (Bld) 1.2 % Normal 0.9-7.0 [facility] Comment on above: Performed By: #### C BC #### [facility] [address] [address] [address] Jose David Shanks Erythrocyte distribution width (RBC) [Ratio] 13.2 % Normal 11.0-15.0 [facility] Comment on above: Performed By: #### C BC #### [facility] [address] [place] [address] Dr. Jose David Shanks Hematocrit (Bld) [Volume fraction] 33.9 % Critically low 36.0-48.0 [facility] Comment on above: Performed By: #### C BC #### [facility] [address] [place] [address] Dr. Jose David Shanks Hemoglobin (Bld) [Mass/Vol] 11.0 g/dL Critically low 12.0-16.0 [facility] Comment on above: Performed By: #### C BC #### [facility] [address] [place] [address] Dr. Jose David Shanks IG # 0.03 10e3/ul Normal 0.00-0.03 [facility] Comment on above: Performed By: #### C BC #### [facility] [address] [place] [address] Dr. Jose David Shanks IG % 0.5 % Normal 0.0-0.5 [facility] Comment on above: Performed By: #### C BC #### [facility] [address] [place] [address] Dr. Jose David Shanks LYMPH # 0.8 103/ul Critically low 1.2-3.8 [facility] Comment on above: Performed By: #### C BC #### [facility] [address] [place] [address] Dr. Jose David Shanks Lymphocytes/100 WBC (Bld) 13.7 % Critically low 20.5-60.0 [facility] Comment on above: Performed By: #### C BC #### [facility] [address] [place] [address] Dr. Jose David Shanks MANUAL DIFF REQ NO Normal [facility] Comment on above: Performed By: #### C BC #### [facility] [address] [place] [address] Dr. Jose David Shanks MCH (RBC) [Entitic mass] 28.9 pg Normal 26.7-34.0 [facility] Comment on above: Performed By: #### C BC #### [facility] [address] [place] [address] Dr. Jose David Shanks MCHC (RBC) [Mass/Vol] 32.4 g/dL Normal 29.9-35.2 [facility] Comment on above: Performed By: #### C BC #### [facility] [address] [place] [address] Dr. Jose David Shanks MCV (RBC) [Entitic vol] 89.0 fL Normal 81.0-99.0 [facility] Comment on above: Performed By: #### C BC #### [facility] [address] [place] [address] Dr. Jose David Shanks MONO # 0.5 103/ul Normal 0.3-0.8 [facility] Comment on above: Performed By: #### C BC #### [facility] [address] [place] [address] Dr. Jose David Shanks Monocytes/100 WBC (Bld) 8.2 % Normal 1.7-12.0 [facility] Comment on above: Performed By: #### C BC #### [facility] [address] [place] [address] Dr. Jose David Shanks NEUT # 4.3 103/ul Normal 1.4-6.5 [facility] Comment on above: Performed By: #### C BC #### [facility] [address] [place] [address] Dr. Jose David Shanks Neutrophils/100 WBC (Bld) 75.9 % Critically high 43.0-75.0 [facility] Comment on above: Performed By: #### C BC #### [facility] [address] [place] [address] Dr. Jose David Shanks Platelet mean volume (Bld) [Entitic vol] 10.1 fL Normal 9.5-13.5 [facility] Comment on above: Performed By: #### C BC #### [facility] [address] [place] [address] Dr. Jose David Shanks PLT 279 103/ul Normal 150-450 [facility] Comment on above: Performed By: #### C BC #### [facility] [address] [place] [address] Dr. Jose David Shanks RBC 3.81 106/ul Critically low 4.20-5.40 [facility] Comment on above: Performed By: #### C BC #### [facility] [address] [place] [address] Dr. Jose David Shanks WBC 5.7 103/ul Normal 4.0-11.0 [facility] Comment on above: Performed By: #### C BC #### [facility] [address] [place] [address] Dr. Jose David Shanks FERRITINon 03-01-2023 Ferritin [Mass/Vol] 180.0 ng/mL Normal 8.0-252.0 [facility] Comment on above: Performed By: #### C BC #### [facility] [address] [place] [address] Dr. Jose David Shanks IRON AND TIBCon 03-01-2023 % SATURATION 23.6 % Normal [facility] Comment on above: Performed By: #### C BC #### [facility] [address] [place] [address] Dr. Jose David Shanks Iron [Mass/Vol] 61.0 ug/dL Normal 50.0-170.0 [facility] Comment on above: Performed By: #### C BC #### [facility] [address] [place] [address] Dr. Jose David Shanks TIBC DIRECT 258.0 ug/dL Normal 250.0-450.0 [facility] Comment on above: Performed By: #### C BC #### [facility] [address] [place] [address] Dr. Jose David Shanks NM STRESS/REST MULTIon 03-01 NM STRESS/REST MULTI Patient: GERMANIA JOAQUINManuel Exam Date: 03/01/2023 : 1940 Gender:F Ordering : DR NATHAN HATHAWAY D.O. Admission #: [id number] Family : Order #: [id number] CLICK HERE TO VIEW EXAM RADIOLOGY REPORT [...] STUDY: PERFUSION DEFECT: LOCATION: Mid-anterior. Apical anterior. [place]. SIZE: Medium (3-4 segments). SEVERITY: Moderate. TYPE: [...] MD on 03/01/2023 at 14:54 Normal [facility] PROF CHEM 8 (BAS METB)on Anion gap [Moles/Vol] 8.8 mmol/L Normal [facility] Comment on above: Performed By: #### L ACT #### [facility] [address] [place] [address] Dr. Jose David Shanks Calcium [Mass/Vol] 9.0 mg/dL Normal 8.5-10.1 [facility] Comment on above: Performed By: #### L ACT #### [facility] [address] [address] [address] Jose David Shanks Chloride [Moles/Vol] 106 mmol/L Normal 98-107 [facility] Comment on above: Performed By: #### L ACT #### [facility] [address] [address] [address] Jose David Shanks CO2 [Moles/Vol] 31.0 mmol/L Normal 21.0-32.0 [facility] Comment on above: Performed By: #### L ACT #### [facility] [address] [address] [address] Jose David Shanks Creatinine [Mass/Vol] 1.18 mg/dL Critically high 0.55-1.02 [facility] Comment on above: Performed By: #### L ACT #### [facility] [address] [address] [address] Jose David Shanks EGFR-AF UZBEK 53 mL/min/1.73m2 Critically low >=60 [facility] Comment on above: Performed By: #### L ACT #### [facility] [address] [address] [address] Jose David Shanks EGFR-NON AF UZBEK 44 mL/min/1.73m2 Critically low >=60 [facility] Comment on above: Performed By: #### L ACT #### [facility] [address] [place] [address] Dr. Jose David Shanks Glucose [Mass/Vol] 98 mg/dL Normal 74-106 [facility] Comment on above: Performed By: #### L ACT #### [facility] [address] [address] [address] Jose David Shanks Potassium [Moles/Vol] 4.8 mmol/L Normal 3.5-5.1 [facility] Comment on above: Performed By: #### L ACT #### [facility] [address] [address] [address] Jose David Shanks Sodium [Moles/Vol] 141 mmol/L Normal 136-145 [facility] Comment on above: Performed By: #### L ACT #### [facility] [address] [address] [address] Jose David Shanks Urea nitrogen [Mass/Vol] 16.0 mg/dL Normal 7.0-18.0 [facility] Comment on above: Performed By: #### L ACT #### [facility] [address] [place] [address] Dr. Jose David Shanks Urea nitrogen/Creatinine [Mass ratio] 13.6 mg/mg Normal [facility] Comment on above: Performed By: #### L ACT #### [facility] [address] [place] [address] Dr. Jose David Shanks RETICULOCYTEon 03-01-2023 RETIC 1.51 % Normal 0.60-3.10 [facility] Comment on above: Performed By: #### C BC #### [facility] [address] [place] [address] Dr. Jose David Shanks VIT B12 AND FOLATEon 023 Cobalamin (Vitamin B12) [Mass/Vol] 1406.0 pg/mL Critically high 193.0-986.0 [facility] Comment on above: Performed By: #### C BC #### [facility] [address] [place] [address] Dr. Jose David Shanks FOLATE 19.00 ng/mL Normal 8.60-58.90 [facility] Comment on above: Performed By: #### C BC #### [facility] [address] [place] [address] Dr. Jose David Shanks CBC AUTO DIFFon 02-09-2023 BASO # 0.0 103/ul Normal 0.0-0.1 [facility] Comment on above: Performed By: #### C BC #### [facility] [address] [place] [address] Dr. Jose David Shanks Basophils/100 WBC (Bld) 0.6 % Normal 0.2-2.0 [facility] Comment on above: Performed By: #### C BC #### [facility] [address] [place] [address] Dr. Jose David Shanks EO # 0.1 103/ul Normal 0.0-0.7 [facility] Comment on above: Performed By: #### C BC #### [facility] [address] [place] [address] Dr. Jose David Shanks Eosinophils/100 WBC (Bld) 2.7 % Normal 0.9-7.0 [facility] Comment on above: Performed By: #### C BC #### [facility] [address] [place] [address] Dr. Jose David Shanks Erythrocyte distribution width (RBC) [Ratio] 13.5 % Normal 11.0-15.0 [facility] Comment on above: Performed By: #### C BC #### [facility] [address] [place] [address] Dr. Jose David Shanks Hematocrit (Bld) [Volume fraction] 30.0 % Critically low 36.0-48.0 [facility] Comment on above: Performed By: #### C BC #### [facility] [address] [place] [address] Dr. Jose David Shanks Hemoglobin (Bld) [Mass/Vol] 10.0 g/dL Critically low 12.0-16.0 [facility] Comment on above: Performed By: #### C BC #### [facility] [address] [place] [address] Dr. Jose David Shanks IG # 0.02 10e3/ul Normal 0.00-0.03 [facility] Comment on above: Performed By: #### C BC #### [facility] [address] [place] [address] Dr. Jose David Shanks IG % 0.4 % Normal 0.0-0.5 [facility] Comment on above: Performed By: #### C BC #### [facility] [address] [place] [address] Dr. Jose David Shanks LYMPH # 0.9 103/ul Critically low 1.2-3.8 [facility] Comment on above: Performed By: #### C BC #### [facility] [address] [place] [address] Dr. Jose David Shanks Lymphocytes/100 WBC (Bld) 19.3 % Critically low 20.5-60.0 [facility] Comment on above: Performed By: #### C BC #### [facility] [address] [place] [address] Dr. Jose David Shanks MANUAL DIFF REQ NO Normal [facility] Comment on above: Performed By: #### C BC #### [facility] [address] [place] [address] Dr. Jose David Shanks MCH (RBC) [Entitic mass] 29.3 pg Normal 26.7-34.0 [facility] Comment on above: Performed By: #### C BC #### [facility] [address] [place] [address] Dr. Jose David Shanks MCHC (RBC) [Mass/Vol] 33.3 g/dL Normal 29.9-35.2 [facility] Comment on above: Performed By: #### C BC #### [facility] [address] [place] [address] Dr. Jose David Shanks MCV (RBC) [Entitic vol] 88.0 fL Normal 81.0-99.0 [facility] Comment on above: Performed By: #### C BC #### [facility] [address] [place] [address] Dr. Jose David Shanks MONO # 0.4 103/ul Normal 0.3-0.8 [facility] Comment on above: Performed By: #### C BC #### [facility] [address] [place] [address] Dr. Jose David Shanks Monocytes/100 WBC (Bld) 8.3 % Normal 1.7-12.0 [facility] Comment on above: Performed By: #### C BC #### [facility] [address] [place] [address] Dr. Jose David Shanks NEUT # 3.3 103/ul Normal 1.4-6.5 [facility] Comment on above: Performed By: #### C BC #### [facility] [address] [place] [address] Dr. Jose David Shanks Neutrophils/100 WBC (Bld) 68.7 % Normal 43.0-75.0 [facility] Comment on above: Performed By: #### C BC #### [facility] [address] [place] [address] Dr. Jose David Shanks Platelet mean volume (Bld) [Entitic vol] 9.9 fL Normal 9.5-13.5 [facility] Comment on above: Performed By: #### C BC #### [facility] [address] [place] [address] Dr. Jose David Shanks PLT 259 103/ul Normal 150-450 [facility] Comment on above: Performed By: #### C BC #### [facility] [address] [address] [address] Jose David Shanks RBC 3.41 106/ul Critically low 4.20-5.40 [facility] Comment on above: Performed By: #### C BC #### [facility] [address] [address] [address] Jose David Shanks WBC 4.8 103/ul Normal 4.0-11.0 [facility] Comment on above: Performed By: #### C BC #### [facility] [address] [place] [address] Dr. Jose David Shanks PROF CHEM 8 (BAS METB)on Anion gap [Moles/Vol] 11.7 mmol/L Normal [facility] Comment on above: Performed By: #### L ACT #### [facility] [address] [place] [address] Dr. Jose David Shanks Calcium [Mass/Vol] 8.6 mg/dL Normal 8.5-10.1 [facility] Comment on above: Performed By: #### L ACT #### [facility] [address] [place] [address] Dr. Jose David Shanks Chloride [Moles/Vol] 107 mmol/L Normal 98-107 [facility] Comment on above: Performed By: #### L ACT #### [facility] [address] [address] [address] Jose David Shanks CO2 [Moles/Vol] 30.9 mmol/L Normal 21.0-32.0 [facility] Comment on above: Performed By: #### L ACT #### [facility] [address] [place] [address] Dr. Jose David Shanks Creatinine [Mass/Vol] 1.04 mg/dL Critically high 0.55-1.02 [facility] Comment on above: Performed By: #### L ACT #### [facility] [address] [address] [address] Jose David Shanks EGFR-AF UZBEK >60 Normal >=60 [facility] Comment on above: Performed By: #### L ACT #### [facility] [address] [address] [address] Jose David Shanks EGFR-NON AF UZBEK 51 mL/min/1.73m2 Critically low >=60 [facility] Comment on above: Performed By: #### L ACT #### [facility] [address] [address] [address] Jose David Shanks Glucose [Mass/Vol] 97 mg/dL Normal 74-106 [facility] Comment on above: Performed By: #### L ACT #### [facility] [address] [address] [address] Jose David Shanks Potassium [Moles/Vol] 3.6 mmol/L Normal 3.5-5.1 [facility] Comment on above: Performed By: #### L ACT #### [facility] [address] [address] [address] Jose David Shanks Sodium [Moles/Vol] 146 mmol/L Critically high 136-145 [facility] Comment on above: Performed By: #### L ACT #### [facility] [address] [address] [address] Jose David Shanks Urea nitrogen [Mass/Vol] 17.0 mg/dL Normal 7.0-18.0 [facility] Comment on above: Performed By: #### L ACT #### [facility] [address] [address] [address] Jose David Shanks Urea nitrogen/Creatinine [Mass ratio] 16.3 mg/mg Normal [facility] Comment on above: Performed By: #### L ACT #### [facility] [address] [address] [address] Jose David Shanks XR CHEST 2 Von 02-09-2023 XR CHEST 2 V HISTORY: 82-year-fem matthew referred for shortness of breath. COMPARISON: 4-13-2023. FINDINGS: PA and lateral radiographs of the [...] EDWARD MENA Date: 2023-02-09 15:56 Normal [facility] BNPon 02-08-2023 Natriuretic peptide B (Bld) [Mass/Vol] 1007.0 pg/mL Normal <=1,800.0 [facility] Comment on above: Performed By: #### B AUTO SERVICE REPRESENTATIVE #### [facility] [address] [place] [address] Dr. Jose David Shanks CARDIAC TALI 3-6on 3 CK [Catalytic activity/Vol] 29 U/L Normal 26-192 [facility] Comment on above: Performed By: #### C MREP #### [facility] [address] [place] [address] Dr. Jose David Shanks CK.MB [Mass/Vol] 0.90 ng/mL Normal <=3.60 [facility] Comment on above: Performed By: #### C MREP #### [facility] [address] [place] [address] Dr. Jose David Shanks HSTROP 69.4 pg/mL Critically high 4.0-51.3 [facility] Comment on above: Result Comment: CUT- OFF POINTS HAVE BEEN ESTABLISHED BASED ON THE FOURTH UNIVERSAL DEFINITIONS OF MYOCARDIAL INFARCTION. THE UPPER REFERENCE LIMIT (URL) OF TROPONIN, DEFINED THE 99TH PERCENTILE OF cTnI DISTRIBUTION IN A REFERENCE POPULATION, HAS BEEN CONFIRMED THE DECISION THRESHOLD FOR [place] DIAGNOSIS. Performed By: #### C MREP #### [facility] [address] [place] [address] Dr. Jose David Shanks CK [Catalytic activity/Vol] 23 U/L Critically low 26-192 [facility] Comment on above: Performed By: #### C MREP #### [facility] [address] [place] [address] Dr. Jose David Shanks CK.MB [Mass/Vol] ng/mL Normal <=3.60 [facility] Comment on above: Performed By: #### C MREP #### [facility] [address] [address] [address] Jose David Shanks HSTROP 72.0 pg/mL Critically high 4.0-51.3 [facility] Comment on above: Result Comment: CUT- OFF POINTS HAVE BEEN ESTABLISHED BASED ON THE FOURTH UNIVERSAL DEFINITIONS OF MYOCARDIAL INFARCTION. THE UPPER REFERENCE LIMIT (URL) OF TROPONIN, DEFINED THE 99TH PERCENTILE OF cTnI DISTRIBUTION IN A REFERENCE POPULATION, HAS BEEN CONFIRMED THE DECISION THRESHOLD FOR AK DIAGNOSIS. Performed By: #### C MREP #### [facility] [address] [place] [address] Dr. Jose David Shanks CARDIAC TALI ADMITon 023 CK [Catalytic activity/Vol] 31 U/L Normal 26-192 [facility] Comment on above: Performed By: #### C MADM, BMP #### [facility] [address] [place] [address] Dr. Jose David Shanks CK.MB [Mass/Vol] ng/mL Normal <=3.60 [facility] Comment on above: Performed By: #### C MADM, BMP #### [facility] [address] [place] [address] Dr. Jose David Shanks HSTROP 26.3 pg/mL Normal 4.0-51.3 [facility] Comment on above: Result Comment: CUT- OFF POINTS HAVE BEEN ESTABLISHED BASED ON THE FOURTH UNIVERSAL DEFINITIONS OF MYOCARDIAL INFARCTION. THE UPPER REFERENCE LIMIT (URL) OF TROPONIN, DEFINED THE 99TH PERCENTILE OF cTnI DISTRIBUTION IN A REFERENCE POPULATION, HAS BEEN CONFIRMED THE DECISION THRESHOLD FOR AK DIAGNOSIS. Performed By: #### C MADM, BMP #### [facility] [address] [place] [address] Dr. Jose David Shanks MAMI 52 ng/mL Normal 9-82 [facility] Comment on above: Performed By: #### C MADM, BMP #### [facility] [address] [place] [address] Dr. Jose David Shanks CBC AUTO DIFFon 02-08-2023 BASO # 0.0 103/ul Normal 0.0-0.1 [facility] Comment on above: Performed By: #### L ACT #### [facility] [address] [place] [address] Dr. Jose David Shanks Basophils/100 WBC (Bld) 0.3 % Normal 0.2-2.0 [facility] Comment on above: Performed By: #### L ACT #### [facility] [address] [place] [address] Dr. Jose David Shanks EO # 0.1 103/ul Normal 0.0-0.7 [facility] Comment on above: Performed By: #### L ACT #### [facility] [address] [place] [address] Dr. Jose David Shanks Eosinophils/100 WBC (Bld) 0.5 % Critically low 0.9-7.0 [facility] Comment on above: Performed By: #### L ACT #### [facility] [address] [place] [address] Dr. Jose David Shanks Erythrocyte distribution width (RBC) [Ratio] 13.4 % Normal 11.0-15.0 [facility] Comment on above: Performed By: #### L ACT #### [facility] [address] [place] [address] Dr. Jose David Shanks Hematocrit (Bld) [Volume fraction] 33.0 % Critically low 36.0-48.0 [facility] Comment on above: Performed By: #### L ACT #### [facility] [address] [place] [address] Dr. Jose David Shanks Hemoglobin (Bld) [Mass/Vol] 11.1 g/dL Critically low 12.0-16.0 [facility] Comment on above: Performed By: #### L ACT #### [facility] [address] [place] [address] Dr. Jose David Shanks IG # 0.06 10e3/ul Critically high 0.00-0.03 [facility] Comment on above: Performed By: #### L ACT #### [facility] [address] [place] [address] Dr. Jose David Shanks IG % 0.5 % Normal 0.0-0.5 [facility] Comment on above: Performed By: #### L ACT #### [facility] [address] [address] [address] Jose David Shanks LYMPH # 0.8 103/ul Critically low 1.2-3.8 [facility] Comment on above: Performed By: #### L ACT #### [facility] [address] [place] [address] Dr. Jose David Shanks Lymphocytes/100 WBC (Bld) 7.0 % Critically low 20.5-60.0 [facility] Comment on above: Performed By: #### L ACT #### [facility] [address] [place] [address] Dr. Jose David Shanks MANUAL DIFF REQ NO Normal [facility] Comment on above: Performed By: #### L ACT #### [facility] [address] [place] [address] Dr. Jose David Shanks MCH (RBC) [Entitic mass] 29.6 pg Normal 26.7-34.0 [facility] Comment on above: Performed By: #### L ACT #### [facility] [address] [place] [address] Dr. Jose David Shanks MCHC (RBC) [Mass/Vol] 33.6 g/dL Normal 29.9-35.2 [facility] Comment on above: Performed By: #### L ACT #### [facility] [address] [place] [address] Dr. Jose David Shanks MCV (RBC) [Entitic vol] 88.0 fL Normal 81.0-99.0 [facility] Comment on above: Performed By: #### L ACT #### [facility] [address] [place] [address] Dr. Jose David Shanks MONO # 0.6 103/ul Normal 0.3-0.8 [facility] Comment on above: Performed By: #### L ACT #### [facility] [address] [address] [address] Jose David Shanks Monocytes/100 WBC (Bld) 5.4 % Normal 1.7-12.0 [facility] Comment on above: Performed By: #### L ACT #### [facility] [address] [address] [address] Jose David Shanks NEUT # 9.9 103/ul Critically high 1.4-6.5 [facility] Comment on above: Performed By: #### L ACT #### [facility] [address] [place] [address] Dr. Jose David Shanks Neutrophils/100 WBC (Bld) 86.3 % Critically high 43.0-75.0 [facility] Comment on above: Performed By: #### L ACT #### [facility] [address] [place] [address] Dr. Jose David Shanks Platelet mean volume (Bld) [Entitic vol] 10.1 fL Normal 9.5-13.5 [facility] Comment on above: Performed By: #### L ACT #### [facility] [address] [place] [address] Dr. Jose David Shanks PLT 333 103/ul Normal 150-450 [facility] Comment on above: Performed By: #### L ACT #### [facility] [address] [place] [address] Dr. Jose David Shanks RBC 3.75 106/ul Critically low 4.20-5.40 [facility] Comment on above: Performed By: #### L ACT #### [facility] [address] [place] [address] Dr. Jose David Shanks WBC 11.5 103/ul Critically high 4.0-11.0 [facility] Comment on above: Performed By: #### L ACT #### [facility] [address] [place] [address] Dr. Jose David Shanks CULTURE BLOODon 02-08-2023 Microscopic examination of blood, culture Culture Observations: NO GROWTH AT 5 DAYS. Normal [facility] Comment on above: Performed By: #### L ACT #### [facility] [address] [place], [place] [address] Dr. Jose David Shanks Microscopic examination of blood, culture Culture Observations: NO GROWTH AT [address] [facility] Comment on above: Performed By: #### L ACT #### [facility] [address] [place], [place] [address] Dr. Jose David Shanks ECHOCARDIO M/2D COMPLETEon 0 02-08-2023 ECHOCARDIO M/2D COMPLETE Patient: LASHAUN JOAQUIN Exam Date: 02/08/2023 : 1940 Gender:F Ordering : DR KOFI SCOTT . Admission #: [id number] Family : DR NATHAN HATHAWAY D.O. Order #: [id number] CLICK HERE TO VIEW EXAM ECHOCARDIOGRAM REPORT [...] Payne M.D. on 02/09/2023 at 19:[address] [facility] LACTATE/LACTIC ACIDon 2022 Lactate [Moles/Vol] 1.4 mmol/L Normal 0.4-2.0 [facility] Comment on above: Performed By: #### L ACT #### [facility] [address] [address] [address] Jose David Shanks Lactate [Moles/Vol] 1.4 mmol/L Normal 0.4-2.0 [facility] Comment on above: Performed By: #### L ACT #### [facility] [address] [place] [address] Dr. Jose David Shanks PROF CHEM 8 (BAS METB)on Anion gap [Moles/Vol] 11.9 mmol/L Normal [facility] Comment on above: Performed By: #### C ELZA, BMP #### [facility] [address] [place] [address] Dr. Jose David Shanks Calcium [Mass/Vol] 9.0 mg/dL Normal 8.5-10.1 [facility] Comment on above: Performed By: #### C ELZA, BMP #### [facility] [address] [place] [address] Dr. Jose David Shanks Chloride [Moles/Vol] 105 mmol/L Normal 98-107 [facility] Comment on above: Performed By: #### C ELZA, BMP #### [facility] [address] [place] [address] Dr. Jose David Shanks CO2 [Moles/Vol] 28.2 mmol/L Normal 21.0-32.0 [facility] Comment on above: Performed By: #### C ELZA, BMP #### [facility] [address] [place] [address] Dr. Jose David Shanks Creatinine [Mass/Vol] 0.99 mg/dL Normal 0.55-1.02 [facility] Comment on above: Performed By: #### C MADM, BMP #### [facility] [address] [address] [address] Jose David Shanks EGFR-AF UZBEK >60 Normal >=60 [facility] Comment on above: Performed By: #### C MADM, BMP #### [facility] [address] [address] [address] Jose David Shanks EGFR-NON AF UZBEK 54 mL/min/1.73m2 Critically low >=60 [facility] Comment on above: Performed By: #### C MADM, BMP #### [facility] [address] [address] [address] Jose David Shanks Glucose [Mass/Vol] 123 mg/dL Critically high 74-106 [facility] Comment on above: Performed By: #### C MADM, BMP #### [facility] [address] [address] [address] Jose David Shanks Potassium [Moles/Vol] 4.1 mmol/L Normal 3.5-5.1 [facility] Comment on above: Performed By: #### C MADM, BMP #### [facility] [address] [address] [address] Jose David Shanks Sodium [Moles/Vol] 141 mmol/L Normal 136-145 [facility] Comment on above: Performed By: #### C MADM, BMP #### [facility] [address] [address] [address] Jose David Shanks Urea nitrogen [Mass/Vol] 14.0 mg/dL Normal 7.0-18.0 [facility] Comment on above: Performed By: #### C MADM, BMP #### [facility] [address] [address] [address] Jose David Shanks Urea nitrogen/Creatinine [Mass ratio] 14.1 mg/mg Normal [facility] Comment on above: Performed By: #### C MADM, BMP #### [facility] [address] [address] [address] Jose David Shanks RESPIRATORY PANEL PLUSon Adenovirus Not detected Normal NOT DETECTED [facility] Comment on above: Performed By: #### R SPLUS #### [facility] [address] [place] [address] Dr. Jose David Mccormack Parapertusis Not detected Normal NOT DETECTED [facility] Comment on above: Performed By: #### R SPLUS #### [facility] [address] [place] [address] Dr. Jose David Mccormack Pertussis Not detected Normal NOT DETECTED [facility] Comment on above: Performed By: #### R SPLUS #### [facility] [address] [place] [address] Dr. Jose David Shanks Chlamydia Pneumoniae Not detected Normal NOT DETECTED [facility] Comment on above: Performed By: #### R SPLUS #### [facility] [address] [place] [address] Dr. Jose David Shanks Coronavirus 229E Not detected Normal NOT DETECTED [facility] Comment on above: Performed By: #### R SPLUS #### [facility] [address] [place] [address] Dr. Jose David Shanks Coronavirus HKU1 Not detected Normal NOT DETECTED [facility] Comment on above: Performed By: #### R SPLUS #### [facility] [address] [place] [address] Dr. Jose David Shanks Coronavirus NL63 Not detected Normal NOT DETECTED [facility] Comment on above: Performed By: #### R SPLUS #### [facility] [address] [place] [address] Dr. Jose David Shanks Coronavirus OC43 Not detected Normal NOT DETECTED [facility] Comment on above: Performed By: #### R SPLUS #### [facility] [address] [place] [address] Dr. Jose David Shanks Influenza A H1 Not detected Normal NOT DETECTED [facility] Comment on above: Performed By: #### R SPLUS #### [facility] [address] [place] [address] Dr. Jose David Shanks Influenza A H1 2009 Not detected Normal NOT DETECTED [facility] Comment on above: Performed By: #### R SPLUS #### [facility] [address] [place] [address] Dr. Jose David Shanks Influenza A H3 Not detected Normal NOT DETECTED [facility] Comment on above: Performed By: #### R SPLUS #### [facility] [address] [place] [address] Dr. Jose David Shanks Influenza B Not detected Normal NOT DETECTED [facility] Comment on above: Performed By: #### R SPLUS #### [facility] [address] [place] [address] Dr. Jose David Shanks Metapneumovirus Not detected Normal NOT DETECTED [facility] Comment on above: Performed By: #### R SPLUS #### [facility] [address] [place] [address] Dr. Jose David Shanks Mycoplas. Pneumoniae Not detected Normal NOT DETECTED [facility] Comment on above: Performed By: #### R SPLUS #### [facility] [address] [place] [address] Dr. Jose David Shanks Parainfluenza 1 Not detected Normal NOT DETECTED [facility] Comment on above: Performed By: #### R SPLUS #### [facility] [address] [place] [address] Dr. Jose David Shanks Parainfluenza 2 Not detected Normal NOT DETECTED [facility] Comment on above: Performed By: #### R SPLUS #### [facility] [address] [place] [address] Dr. Jose David Shanks Parainfluenza 3 Not detected Normal NOT DETECTED [facility] Comment on above: Performed By: #### R SPLUS #### [facility] [address] [place] [address] Dr. Jose David Shanks Parainfluenza 4 Not detected Normal NOT DETECTED [facility] Comment on above: Performed By: #### R SPLUS #### [facility] [address] [place] [address] Dr. Jose David Shanks Rhino/Enterovirus Not detected Normal NOT DETECTED [facility] Comment on above: Performed By: #### R SPLUS #### [facility] [address] [place] [address] Dr. Jose David Shanks RP2 Header 1 RESPIRATORY PANEL: VIRUSES Normal [facility] Comment on above: Performed By: #### R SPLUS #### [facility] [address] [address] [address] Jose David Shanks RP2 Header 2 RESPIRATORY PANEL: BACTERIA Normal [facility] Comment on above: Performed By: #### R SPLUS #### [facility] [address] [address] [address] Jose David Shanks RSV Not detected Normal NOT DETECTED [facility] Comment on above: Performed By: #### R SPLUS #### [facility] [address] [address] [address] Jose David Shanks SARS-CoV-2 (COVID-19) RNA ZABRINA+probe Ql (Unsp spec) Not detected Normal NOT DETECTED [facility] Comment on above: Performed By: #### R SPLUS #### [facility] [address] [place] [address] Dr. Jose David Shanks XR CHEST 1 [...] Petra SAHU Date: 2023-02-08 05:21 Normal [facility] MAMM SCREEN 3D SCARLETT CADon 01-08-2023 MG MAMM SCREEN 3D SCARLETT CAD Patient: LASHAUN JOAQUIN Exam Date: 01/08/2023 : 1940 Gender:F Ordering : DR NATHAN HATHAWAY D.O. Admission #: [id number] Family : Order #: [id number] CLICK HERE TO VIEW EXAM RADIOLOGY REPORT [...] lung cancer at age 62. LOCATION: [facility] BREAST COMPOSITION: Extremely dense, which lowers [...] MD on 01/08/2023 at 11:24 Normal [facility] US ST HEAD_NECKon 09-11-[address] HEAD_NECK [...] WILLIAM DOMINGUEZ Date: 2022-09-11 17:07 Normal [facility] CT Abdomen and Pelvis W [...] any questions regarding this interpretation, please call [phone]. If you are unable to reach us at the number above, please feel free to contact [facility] at [phone]. DIVISION OF RADIOLOGY * * *Final Report* * * DATE OF EXAM: Aug 28 2022 1:36PM [facility] 0530 - CT ABD/PEL W IVCON / [...] chest CT performed will be reported separately. Pediatric Neurologist (topogram) images: No additional findings. DIVISION OF RADIOLOGY Provider, [facility] - 08/28/2022 * * *Final Report* * * DATE OF EXAM: Aug 28 2022 1:36PM [facility] 0530 - CT ABD/PEL W IVCON / [...] chest CT performed will be reported separately. Pediatric Neurologist (topogram) images: No additional findings. IMPRESSION IMPRESSION: [...] any questions regarding this interpretation, please call [phone]. If you are unable to reach us at the number above, please feel free to contact [facility] at [phone]. [facility] CT Abdomen and Pelvis W cont rast IVOrdered By: [facility] Provider on 08-28-20[address] [facility] CT Chest W contrast Rivka IMPRESSION: [...] any questions regarding this interpretation, please call [phone]. If you are unable to reach us at the number above, please feel free to contact [facility] at [phone]. DIVISION OF RADIOLOGY * * *Final Report* * * DATE OF EXAM: Aug 28 2022 1:36PM [facility] 0539 - CT CHEST W IVCON / [...] was performed concurrently and is reported separately. Pediatric Neurologist (topogram) images: No additional findings. DIVISION OF RADIOLOGY Provider, Thee [facility] - 08/28/2022 * * *Final Report* * * DATE OF EXAM: Aug 28 2022 1:36PM [facility] 0539 - CT CHEST W IVCON / [...] was performed concurrently and is reported separately. Pediatric Neurologist (topogram) images: No additional findings. IMPRESSION IMPRESSION: [...] any questions regarding this interpretation, please call [phone]. If you are unable to reach us at the number above, please feel free to contact [facility] at [phone]. [facility] No Panel Informationon 08-28 Radiology Study observation (narrative) [facility] Covid-19 PCR (CVDTBH)on SARS-CoV-2 (COVID-19) RNA ZABRINA+probe Ql (Unsp spec) Detected Critically abnormal NOT DETECTED [facility] Comment on above: Result Comment: This test is not yet approved or cleared by the [place] FDA. When there are no FDA-approved or cleared tests available, and other criteria are met, FDA can make tests available under an emergency access mechanism called an Emergency Use Authorization (EUA). The EUA for this test is supported by the [employer] of Health and Human Service's (HHS's) declaration [...] longer be used). Performed By: #### [facility] #### [facility] [address] [address] [address] Jose David Shanks Vital Signs Date Time Vital Sign Value Performing Clinician Facility 08-04-2025 10:44-0400 Body height 160.02 cm Nathan Hathaway DO Work Phone: [facility] 08-04-2025 10:44-0400 Body mass index (BMI) [Ratio] 34.5 kg/m2 Nathan Ball DO Work Phone: [facility] 08-04-2025 10:44-0400 Body temperature 97.6 [degF] Nathan Ball DO Work Phone: [facility] 08-04-2025 10:44-0400 Body weight 88.45 kg Nathan Ball DO Work Phone: [facility] 08-04-2025 10:44-0400 Diastolic blood pressure 50 mm[Hg] Nathan Ball DO Work Phone: [facility] 08-04-2025 10:44-0400 Heart rate 69 /min Nathan Ball DO Work Phone: [facility] 08-04-2025 10:44-0400 SaO2% (BldA) [Mass fraction] 96 % Nathan Ball DO Work Phone: [facility] 08-04-2025 10:44-0400 Systolic blood pressure 150 mm[Hg] Nathan Ball DO Work Phone: [facility] 07-21-2025 15:53-0400 Body height 166.37 cm Nathan Ball DO Work Phone: [facility] 07-21-2025 15:53-0400 Body mass index (BMI) [Ratio] 31.9 kg/m2 Nathan Ball DO Work Phone: [facility] 07-21-2025 15:53-0400 Body weight 88.45 kg Nathan Ball DO Work Phone: [facility] 07-21-2025 15:53-0400 Diastolic blood pressure 76 mm[Hg] Nathan Ball DO Work Phone: [facility] 07-21-2025 15:53-0400 Diastolic blood pressure 85 mm[Hg] Nathan Ball DO Work Phone: [facility] 07-21-2025 15:53-0400 Heart rate 76 /min Nathan Ball DO Work Phone: [facility] 07-21-2025 15:53-0400 Respiratory rate 12 /min Nathan Ball DO Work Phone: [facility] 07-21-2025 15:53-0400 Systolic blood pressure 172 mm[Hg] Nathan Ball DO Work Phone: [facility] 07-21-2025 15:53-0400 Systolic blood pressure 140 mm[Hg] Nathan Ball DO Work Phone: [facility] 07-08-2025 10:09-0400 Diastolic blood pressure 68 mm[Hg] Paolo Casillas APRN.OPERATING ENGINEER APPRENTICE Work Phone: [facility] Comment on above: recheck BP [facility] 07-08-2025 10:09-0400 Systolic blood pressure 178 mm[Hg] Paolo Casillas APRN.OPERATING ENGINEER APPRENTICE Work Phone: [facility] Comment on above: recheck BP [facility] 07-08-2025 10:01-0400 Body height 166.4 cm Paolo Casillas APRN.OPERATING ENGINEER APPRENTICE Work Phone: [facility] 07-08-2025 10:01-0400 Body mass index (BMI) [Ratio] 33.15 kg/m2 Paolo Casillas APRN.OPERATING ENGINEER APPRENTICE Work Phone: [facility] 07-08-2025 10:01-0400 Body temperature 96.8 [degF] Paolo Casillas APRN.OPERATING ENGINEER APPRENTICE Work Phone: [facility] 07-08-2025 10:01-0400 Body weight 91.8 kg Paolo Casillas APRN.OPERATING ENGINEER APPRENTICE Work Phone: [facility] 07-08-2025 10:01-0400 Heart rate 66 /min Paolo Casillas APRN.OPERATING ENGINEER APPRENTICE Work Phone: [facility] 07-08-2025 10:01-0400 Respiratory rate 18 /min Paolo Casillas APRN.OPERATING ENGINEER APPRENTICE Work Phone: [facility] 07-08-2025 10:01-0400 SaO2% (BldA) [Mass fraction] 95 % Paolo Casillas APRN.OPERATING ENGINEER APPRENTICE Work Phone: [facility] 06-19-2025 09:31-0400 Body height 166.37 cm Nathan Ball DO Work Phone: [facility] 06-19-2025 09:31-0400 Body mass index (BMI) [Ratio] 32.4 kg/m2 Nathan Ball DO Work Phone: [facility] 06-19-2025 09:31-0400 Body weight 89.81 kg Nathan Ball DO Work Phone: [facility] 06-19-2025 09:31-0400 Diastolic blood pressure 70 mm[Hg] Nathan Ball DO Work Phone: [facility] 06-19-2025 09:31-0400 Heart rate 62 /min Nathan Ball DO Work Phone: [facility] 06-19-2025 09:31-0400 Respiratory rate 14 /min Nathan Ball DO Work Phone: [facility] 06-19-2025 09:31-0400 SaO2% (BldA) [Mass fraction] 96 % Nathan Ball DO Work Phone: [facility] 06-19-2025 09:31-0400 Systolic blood pressure 146 mm[Hg] Nathan Ball DO Work Phone: [facility] 05-19-2025 15:33-0400 Body height 166.37 cm Nathan Ball DO Work Phone: [facility] 05-19-2025 15:33-0400 Body mass index (BMI) [Ratio] 31.8 kg/m2 Nathan Ball DO Work Phone: [facility] 05-19-2025 15:33-0400 Body weight 88.13 kg Nathan Ball DO Work Phone: [facility] 05-19-2025 15:33-0400 Diastolic blood pressure 74 mm[Hg] Nathan Ball DO Work Phone: [facility] 05-19-2025 15:33-0400 Heart rate 67 /min Nathan Ball DO Work Phone: [facility] 05-19-2025 15:33-0400 Respiratory rate 14 /min Nathan Ball DO Work Phone: [facility] 05-19-2025 15:33-0400 SaO2% (BldA) [Mass fraction] 96 % Nathan Ball DO Work Phone: [facility] 05-19-2025 15:33-0400 Systolic blood pressure 148 mm[Hg] Nathan Ball DO Work Phone: [facility] 03-19-2025 11:22-0400 Body height 166.37 cm Nathan Ball DO Work Phone: [facility] 03-19-2025 11:22-0400 Body mass index (BMI) [Ratio] 31.6 kg/m2 Nathan Ball DO Work Phone: [facility] 03-19-2025 11:22-0400 Body weight 87.54 kg Nathan Ball DO Work Phone: [facility] 03-19-2025 11:22-0400 Diastolic blood pressure 89 mm[Hg] Natahn Ball DO Work Phone: [facility] 03-19-2025 11:22-0400 Heart rate 66 /min Nathan Ball DO Work Phone: [facility] 03-19-2025 11:22-0400 Respiratory rate 12 /min Nathan Ball DO Work Phone: [facility] 03-19-2025 11:22-0400 SaO2% (BldA) [Mass fraction] 97 % Nathan Ball DO Work Phone: [facility] 03-19-2025 11:22-0400 Systolic blood pressure 139 mm[Hg] Nathan Ball DO Work Phone: [facility] 03-17-2025 10:42-0400 Body height 165.[address] 03-17-2025 10:42-0400 Body mass index (BMI) [Ratio] 33.28 kg/m2 [address] 03-17-2025 10:42-0400 Body weight 90.[address] 03-17-2025 10:42-0400 Diastolic blood pressure 60 mm[Hg] [address] 03-17-2025 10:42-0400 Systolic blood pressure 120 mm[Hg] [address] 03-13-2025 13:25-0400 Body height 166.37 cm Nathan Ball DO Work Phone: [facility] 03-13-2025 13:25-0400 Body mass index (BMI) [Ratio] 33 kg/m2 Nathan Ball DO Work Phone: [facility] 03-13-2025 13:25-0400 Body weight 91.28 kg Nathan Ball DO Work Phone: [facility] 03-13-2025 13:25-0400 Diastolic blood pressure 68 mm[Hg] Nathan Ball DO Work Phone: [facility] 03-13-2025 13:25-0400 Heart rate 90 /min Nathan Ball DO Work Phone: [facility] 03-13-2025 13:25-0400 Respiratory rate 12 /min Nathan Ball DO Work Phone: [facility] 03-13-2025 13:25-0400 Systolic blood pressure 148 mm[Hg] Nathan Ball DO Work Phone: [facility] 02-25-2025 08:46-0400 Body height 165.1 cm Reyna Esparza MD Work Phone: [facility] 02-25-2025 08:46-0400 Body mass index (BMI) [Ratio] 32.45 kg/m2 eRyna Esparza MD Work Phone: [facility] 02-25-2025 08:46-0400 Body weight 88.45 kg Reyna Esparza MD Work Phone: [facility] 02-25-2025 08:46-0400 Diastolic blood pressure 59 mm[Hg] Reyna Esparza MD Work Phone: [facility] 02-25-2025 08:46-0400 Heart rate 72 /min Reyna Esparza MD Work Phone: [facility] 02-25-2025 08:46-0400 Systolic blood pressure 118 mm[Hg] Reyna Esparza MD Work Phone: [facility] 02-12-2025 10:20-0400 Diastolic blood pressure 70 mm[Hg] Nathan Ball DO Work Phone: [facility] 02-12-2025 10:20-0400 Heart rate 56 /min Nathan Ball DO Work Phone: [facility] 02-12-2025 10:20-0400 Respiratory rate 18 /min Nathan Ball DO Work Phone: [facility] 02-12-2025 10:20-0400 SaO2% (BldA) [Mass fraction] 97 % Nathan Ball DO Work Phone: [facility] 02-12-2025 10:20-0400 Systolic blood pressure 190 mm[Hg] Nathan Ball DO Work Phone: [facility] 02-12-2025 06:29-0400 Body height 165.1 cm Nathan Ball DO Work Phone: [facility] 02-12-2025 06:29-0400 Body temperature 98.3 [degF] Nathan Ball DO Work Phone: [facility] 02-12-2025 06:29-0400 Body weight 90.9 kg Nathan Ball DO Work Phone: [facility] 01-22-2025 10:20-0400 Body height 166.37 cm Nathan Ball DO Work Phone: [facility] 01-22-2025 10:20-0400 Body mass index (BMI) [Ratio] 31.9 kg/m2 Nathan Ball DO Work Phone: [facility] 01-22-2025 10:20-0400 Body weight 88.45 kg Nathan Ball DO Work Phone: [facility] 01-22-2025 10:20-0400 Diastolic blood pressure 64 mm[Hg] Nathan Ball DO Work Phone: [facility] 01-22-2025 10:20-0400 Heart rate 65 /min Nathan Ball DO Work Phone: [facility] 01-22-2025 10:20-0400 Respiratory rate 12 /min Nathan Ball DO Work Phone: [facility] 01-22-2025 10:20-0400 Systolic blood pressure 215 mm[Hg] Nathan Ball DO Work Phone: [facility] 01-12-2025 11:10-0400 Body height 165.1 cm Holden Rosado FARMWORKER [employer]-OPERATING ENGINEER APPRENTICE Work Phone: [facility] 01-12-2025 11:10-0400 Body mass index (BMI) [Ratio] 33.28 kg/m2 Holden Rosado [employer]ARMWORK[employer]-OPERATING ENGINEER APPRENTICE Work Phone: [facility] 01-12-2025 11:10-0400 Body weight 90.72 kg Holden Rosado FARMWORK[employer]-OPERATING ENGINEER APPRENTICE Work Phone: [facility] 01-12-2025 11:10-0400 Diastolic blood pressure 60 mm[Hg] Holden Rosado [employer]ARMWORK[employer]-OPERATING ENGINEER APPRENTICE Work Phone: [facility] 01-12-2025 11:10-0400 Heart rate 60 /min Holden Rosado [employer]ARMWORK[employer]-OPERATING ENGINEER APPRENTICE Work Phone: [facility] 01-12-2025 11:10-0400 Systolic blood pressure 124 mm[Hg] Holden Rosado FARMWORK[employer]-OPERATING ENGINEER APPRENTICE Work Phone: [facility] 12-16-2024 10:50-0500 Body height 166.37 cm Nathan Ball DO Work Phone: [facility] 12-16-2024 10:50-0500 Body mass index (BMI) [Ratio] 32 kg/m2 Nathan Ball DO Work Phone: [facility] 12-16-2024 10:50-0500 Body weight 88.59 kg Nathan Ball DO Work Phone: [facility] 12-16-2024 10:50-0500 Diastolic blood pressure 67 mm[Hg] Nathan Ball DO Work Phone: [facility] 12-16-2024 10:50-0500 Heart rate 56 /min Nathan Ball DO Work Phone: [facility] 12-16-2024 10:50-0500 SaO2% (BldA) [Mass fraction] 97 % Nathan Ball DO Work Phone: [facility] 12-16-2024 10:50-0500 Systolic blood pressure 136 mm[Hg] Nathan Ball DO Work Phone: [facility] 11-25-2024 13:55-0500 Body height 165.1 cm Reyna Esparza MD Work Phone: [facility] 11-25-2024 13:55-0500 Body mass index (BMI) [Ratio] 32.28 kg/m2 Reyna Esparza MD Work Phone: [facility] 11-25-2024 13:55-0500 Body weight 88 kg Reyna Esparza MD Work Phone: [facility] 11-25-2024 13:55-0500 Diastolic blood pressure 64 mm[Hg] Reyna Esparza MD Work Phone: [facility] 11-25-2024 13:55-0500 Heart rate 60 /min Reyna Esparza MD Work Phone: [facility] 11-25-2024 13:55-0500 Systolic blood pressure 141 mm[Hg] Reyna Esparza MD Work Phone: [facility] 11-17-2024 13:05-0500 Diastolic blood pressure 59 mm[Hg] Nathan Ball DO Work Phone: [facility] 11-17-2024 13:05-0500 Heart rate 68 /min Nathan Ball DO Work Phone: [facility] 11-17-2024 13:05-0500 Respiratory rate 16 /min Nathan Ball DO Work Phone: [facility] 11-17-2024 13:05-0500 SaO2% (BldA) [Mass fraction] 94 % Nathan Ball DO Work Phone: [facility] 11-17-2024 13:05-0500 Systolic blood pressure 163 mm[Hg] Nathan Ball DO Work Phone: [facility] 11-17-2024 10:05-0500 Body height 166.37 cm Nathan Ball DO Work Phone: [facility] 11-17-2024 10:05-0500 Body weight 89.35 kg Nathan Ball DO Work Phone: [facility] 10-08-2024 10:40-0500 Body height 165.1 cm Edinson Perry DO Work Phone: [facility] 10-08-2024 10:40-0500 Body mass index (BMI) [Ratio] 33.12 kg/m2 Edinson Perry DO Work Phone: [facility] 10-08-2024 10:40-0500 Body weight 90.27 kg Edinson Perry DO Work Phone: [facility] 10-08-2024 10:40-0500 Diastolic blood pressure 60 mm[Hg] Edinson Perry DO Work Phone: [facility] 10-08-2024 10:40-0500 Heart rate 78 /min Edinson Perry DO Work Phone: [facility] 10-08-2024 10:40-0500 Systolic blood pressure 124 mm[Hg] Edinson Perry DO Work Phone: [facility] 09-11-2024 10:19-0500 Body height 165.1 cm [facility] 09-11-2024 10:190500 Body mass index (BMI) [Ratio] 32.3 kg/m2 [facility] 09-11-2024 10:190500 Body weight 88.13 kg [facility] 09-11-2024 10:190500 Diastolic blood pressure 54 mm[Hg] [facility] 09-11-2024 10:19-0500 Heart rate 63 /min [facility] 09-11-2024 10:190500 SaO2% (BldA) [Mass fraction] 97 % [facility] 09-11-2024 10:190500 Systolic blood pressure 118 mm[Hg] [facility] 06-03-2024 10:54-0400 Body height 165.1 cm DO Nathan Ball Work Phone: [facility] 06-03-2024 10:54-0400 Body mass index (BMI) [Ratio] 26.8 kg/m2 DO Nathan Ball Work Phone: [facility] 06-03-2024 10:54-0400 Body weight 73.02 kg DO Nathan Ball Work Phone: [facility] 06-03-2024 10:54-0400 Diastolic blood pressure 89 mm[Hg] DO Nathan Ball Work Phone: [facility] 06-03-2024 10:54-0400 Heart rate 56 /min DO Nathan Ball Work Phone: [facility] 06-03-2024 10:54-0400 Respiratory rate 12 /min DO Nathan Ball Work Phone: [facility] 06-03-2024 10:54-0400 Systolic blood pressure 139 mm[Hg] DO Nathan Ball Work Phone: [facility] 04-21-2024 10:21-0400 Body mass index (BMI) [Ratio] 32.98 kg/m2 Holden Rosado [employer]ARMWORK[employer]-OPERATING ENGINEER APPRENTICE Work Phone: [facility] 04-21-2024 10:21-0400 Body weight 89.9 kg Holden Rosado FARMWORK[employer]-OPERATING ENGINEER APPRENTICE Work Phone: [facility] 04-21-2024 10:21-0400 Diastolic blood pressure 70 mm[Hg] Holden Rosado FARMWORK[employer]-OPERATING ENGINEER APPRENTICE Work Phone: [facility] 04-21-2024 10:21-0400 Heart rate 60 /min Holden Rosado FARMWORK[employer]-OPERATING ENGINEER APPRENTICE Work Phone: [facility] 04-21-2024 10:21-0400 Systolic blood pressure 132 mm[Hg] Holden Rosado FARMWORK[employer]-OPERATING ENGINEER APPRENTICE Work Phone: [facility] 03-12-2024 09:27-0400 Diastolic blood pressure 66 mm[Hg] [address] 03-12-2024 09:27-0400 Heart rate 62 /min [address] 03-12-2024 09:27-0400 Systolic blood pressure 114 mm[Hg] [address] 03-05-2024 11:46-0400 Body height 165.1 cm Holden Rosado FARMWORK[employer]-OPERATING ENGINEER APPRENTICE Work Phone: [facility] 03-05-2024 11:46-0400 Body mass index (BMI) [Ratio] 32.62 kg/m2 Holden Rosado FARMWORK[employer]-OPERATING ENGINEER APPRENTICE Work Phone: [facility] 03-05-2024 11:46-0400 Body weight 88.91 kg Holden Rosado FARMWORK[employer]-OPERATING ENGINEER APPRENTICE Work Phone: [facility] 03-05-2024 11:46-0400 Diastolic blood pressure 68 mm[Hg] Holden Rosado FARMWORK[employer]-OPERATING ENGINEER APPRENTICE Work Phone: [facility] 03-05-2024 11:46-0400 Heart rate 62 /min Holden Rosado FARMWORKER [employer]-OPERATING ENGINEER APPRENTICE Work Phone: [facility] 03-05-2024 11:46-0400 Systolic blood pressure 120 mm[Hg] Holden Rosado FARMWORKER [employer]-OPERATING ENGINEER APPRENTICE Work Phone: [facility] 02-27-2024 09:53-0400 Body height 165.1 cm DO Nathan Ball Work Phone: [facility] 02-27-2024 09:53-0400 Body mass index (BMI) [Ratio] 31.9 kg/m2 DO Nathan Ball Work Phone: [facility] 02-27-2024 09:53-0400 Body weight 87.08 kg DO Nathan Ball Work Phone: [facility] 02-27-2024 09:53-0400 Diastolic blood pressure 72 mm[Hg] DO Nathan Ball Work Phone: [facility] 02-27-2024 09:53-0400 Heart rate 62 /min DO Nathan Ball Work Phone: [facility] 02-27-2024 09:53-0400 SaO2% (BldA) [Mass fraction] 97 % DO Nathan Ball Work Phone: [facility] 02-27-2024 09:53-0400 Systolic blood pressure 132 mm[Hg] DO Nathan Ball Work Phone: [facility] 02-13-2024 10:30-0400 Body height 165.1 cm [facility] 02-13-2024 10:30-0400 Body mass index (BMI) [Ratio] 32.8 kg/m2 [facility] 02-13-2024 10:30-0400 Body weight 89.35 kg [facility] 02-13-2024 10:30-0400 Diastolic blood pressure 60 mm[Hg] [facility] 02-13-2024 10:30-0400 Heart rate 56 /min [facility] 02-13-2024 10:30-0400 SaO2% (BldA) [Mass fraction] 98 % [facility] 02-13-2024 10:30-0400 Systolic blood pressure 128 mm[Hg] [facility] 02-01-2024 11:01-0400 Body height 165.1 cm [facility] 02-01-2024 11:01-0400 Body mass index (BMI) [Ratio] 27.3 kg/m2 [facility] 02-01-2024 11:01-0400 Body weight 74.44 kg [facility] 02-01-2024 11:01-0400 Diastolic blood pressure 72 mm[Hg] [facility] 02-01-2024 11:01-0400 Heart rate 49 /min [facility] 02-01-2024 11:01-0400 Respiratory rate 12 /min [facility] 02-01-2024 11:01-0400 Systolic blood pressure 131 mm[Hg] [facility] 11-02-2023 11:00-0500 Body height 165.1 cm Nathan Ball Other [facility] [employer] Other 11-02-2023 11:00-0500 Body mass index (BMI) [Ratio] 31.78 kg/m2 Nathan Ball Other [facility] [employer] Other 11-02-2023 11:00-0500 Body weight 86.64 kg Nathan Ball Other [facility] [employer] Other 11-02-2023 11:00-0500 Diastolic blood pressure 80 mm[Hg] Nathan Ball Other [facility] [employer] Other 11-02-2023 11:00-0500 Respiratory rate 16 /min Nathan Ball Other [facility] [employer] Other 11-02-2023 11:00-0500 Systolic blood pressure 130 mm[Hg] Nathan Ball Other [facility] [employer] Other 10-02-2023 09:45-0500 Body height 165.1 cm Nathan Ball Other [facility] [employer] Other 10-02-2023 09:45-0500 Body mass index (BMI) [Ratio] 31.61 kg/m2 Nathan Ball Other [facility] [employer] Other 10-02-2023 09:45-0500 Body weight 86.18 kg Nathan Ball Other [employer] Other 10-02-2023 09:45-0500 Diastolic blood pressure 74 mm[Hg] Nathan Ball Other [employer] Other 10-02-2023 09:45-0500 Respiratory rate 12 /min Nathan Ball Other [employer] Other 10-02-2023 09:45-0500 Systolic blood pressure 144 mm[Hg] Nathan Ball Other [employer] Other 06-08-2023 11:15-0400 Body height 165.1 cm Nathan Ball Other [employer] Other 06-08-2023 11:15-0400 Body mass index (BMI) [Ratio] 32.95 kg/m2 Nathan Ball Other [employer] Other 06-08-2023 11:15-0400 Body weight 89.81 kg Nathan Ball Other [employer] Other 06-08-2023 11:15-0400 Diastolic blood pressure 62 mm[Hg] Nathan Ball Other [employer] Other 06-08-2023 11:15-0400 Respiratory rate 12 /min Nathan Ball Other [employer] Other 06-08-2023 11:15-0400 Systolic blood pressure 138 mm[Hg] Nathan Ball Other [employer] Other 06-04-2023 13:51-0400 Body temperature 97.7 [degF] Luis Mckenzie MD Work Phone: [facility] 06-04-2023 13:51-0400 Body weight 91.99 kg Luis Mckenzie MD Work Phone: [facility] 06-04-2023 13:51-0400 Diastolic blood pressure 58 mm[Hg] Luis Mckenzie MD Work Phone: [facility] 06-04-2023 13:51-0400 Heart rate 56 /min Luis Mckenzie MD Work Phone: [facility] 06-04-2023 13:51-0400 Respiratory rate 18 /min Luis Mckenzie MD Work Phone: [facility] 06-04-2023 13:51-0400 SaO2% (BldA) [Mass fraction] 98 % Luis Mckenzie MD Work Phone: [facility] 06-04-2023 13:51-0400 Systolic blood pressure 155 mm[Hg] Luis Mckenzie MD Work Phone: [facility] 05-25-2023 11:15-0400 Body height 165.1 cm Nathan Ball Other [employer] Other 05-25-2023 11:15-0400 Body mass index (BMI) [Ratio] 32.86 kg/m2 Nathan Ball Other [employer] Other 05-25-2023 11:15-0400 Body weight 89.59 kg Nathan Ball Other [employer] Other 05-25-2023 11:15-0400 Diastolic blood pressure 68 mm[Hg] Nathan Ball Other [employer] Other 05-25-2023 11:15-0400 Respiratory rate 16 /min Nathan Ball Other [employer] Other 05-25-2023 11:15-0400 Systolic blood pressure 142 mm[Hg] Nathan Ball Other [employer] Other 05-18-2023 15:30-0400 Body temperature 97.7 [degF] DO Nathan Ball Work Phone: [facility] 05-18-2023 15:30-0400 Diastolic blood pressure 71 mm[Hg] DO Nathan Ball Work Phone: [facility] 05-18-2023 15:30-0400 Heart rate 62 /min DO Nathan Ball Work Phone: [facility] 05-18-2023 15:30-0400 Respiratory rate 16 /min DO Nathan Ball Work Phone: [facility] 05-18-2023 15:30-0400 SaO2% (BldA) [Mass fraction] 95 % DO Nathan Ball Work Phone: [facility] 05-18-2023 15:30-0400 Systolic blood pressure 145 mm[Hg] DO Nathan Ball Work Phone: [facility] 05-18-2023 05:39-0400 Body weight 88.1 kg DO Nathan Ball Work Phone: [facility] 05-17-2023 20:00-0400 Inhaled oxygen flow rate 1.5 L/min DO Nathan Ball Work Phone: [facility] 05-17-2023 15:54-0400 Body height 172.72 cm DO Nathan Ball Work Phone: [facility] 05-16-2023 11:30-0400 Body height 165.1 cm Nathan Ball Other [employer] [facility] [employer] Other 05-16-2023 11:30-0400 Body mass index (BMI) [Ratio] 33.28 kg/m2 Nathan Ball Other [employer] Other 05-16-2023 11:30-0400 Body weight 90.72 kg Nathan Ball Other [employer] Other 05-16-2023 11:30-0400 Diastolic blood pressure 69 mm[Hg] Nathan Ball Other [employer] Other 05-16-2023 11:30-0400 Respiratory rate 16 /min Nathan Ball Other [employer] Other 05-16-2023 11:30-0400 Systolic blood pressure 192 mm[Hg] Nathan Ball Other [employer] Other 05-09-2023 11:15-0400 Body height 165.1 cm Nathan Ball Other [employer] Other 05-09-2023 11:15-0400 Body mass index (BMI) [Ratio] 32.75 kg/m2 Nathan Ball Other [employer] Other 05-09-2023 11:15-0400 Body weight 89.27 kg Nathan Ball Other [employer] Other 05-09-2023 11:15-0400 Diastolic blood pressure 62 mm[Hg] Nathan Ball Other [employer] Other 05-09-2023 11:15-0400 Respiratory rate 16 /min Nathan Ball Other [employer] Other 05-09-2023 11:15-0400 SaO2% (BldA) [Mass fraction] 98 % Nathan Ball Other [employer] Other 05-09-2023 11:15-0400 Systolic blood pressure 189 mm[Hg] Nathan Ball Other [employer] Other 04-26-2023 11:30-0400 Body height 165.1 cm Nathan Ball Other [employer] Other 04-26-2023 11:30-0400 Body mass index (BMI) [Ratio] 32.53 kg/m2 Nathan Ball Other [employer] Other 04-26-2023 11:30-0400 Body weight 88.68 kg Nathan Ball Other [employer] Other 04-26-2023 11:30-0400 Diastolic blood pressure 80 mm[Hg] Nathan Ball Other [employer] Other 04-26-2023 11:30-0400 Respiratory rate 16 /min Nathan Ball Other [employer] Other 04-26-2023 11:30-0400 Systolic blood pressure 136 mm[Hg] Nathan Ball Other [employer] Other 04-18-2023 09:45-0400 Body height 165.1 cm Nathan Ball Other [employer] Other 04-18-2023 09:45-0400 Body mass index (BMI) [Ratio] 33.28 kg/m2 Nathan Ball Other [employer] Other 04-18-2023 09:45-0400 Body weight 90.72 kg Nathan Ball Other [employer] Other 04-18-2023 09:45-0400 Diastolic blood pressure 76 mm[Hg] Nathan Ball Other [employer] Other 04-18-2023 09:45-0400 Respiratory rate 20 /min Nathan Ball Other [employer] Other 04-18-2023 09:45-0400 SaO2% (BldA) [Mass fraction] 98 % Nathan Ball Other [employer] Other 04-18-2023 09:45-0400 Systolic blood pressure 132 mm[Hg] Nathan Ball Other [employer] Other 03-15-2023 10:45-0400 Body height 165.1 cm Nathan Ball Other [employer] Other 03-15-2023 10:45-0400 Body mass index (BMI) [Ratio] 31.95 kg/m2 Nathan Ball Other [facility] [employer] Other 03-15-2023 10:45-0400 Body weight 87.09 kg Nathan Ball Other [facility] [employer] Other 03-15-2023 10:45-0400 Diastolic blood pressure 77 mm[Hg] Nathan Ball Other [facility] [employer] Other 03-15-2023 10:45-0400 Respiratory rate 16 /min Nathan Ball Other [facility] [employer] Other 03-15-2023 10:45-0400 Systolic blood pressure 151 mm[Hg] Nathan Ball Other [facility] [employer] Other 03-09-2023 17:00-0400 Body temperature 97.9 [degF] DO Nathan Ball Work Phone: [facility] 03-09-2023 17:00-0400 Diastolic blood pressure 72 mm[Hg] DO Nathan Ball Work Phone: [facility] 03-09-2023 17:00-0400 Heart rate 54 /min DO Nathan Ball Work Phone: [facility] 03-09-2023 17:00-0400 Respiratory rate 16 /min DO Nathan Ball Work Phone: [facility] 03-09-2023 17:00-0400 SaO2% (BldA) [Mass fraction] 96 % DO Nathan Ball Work Phone: [facility] 03-09-2023 17:00-0400 Systolic blood pressure 140 mm[Hg] DO Nathan Ball Work Phone: [facility] 03-09-2023 08:11-0400 Body height 165.1 cm DO Nathan Ball Work Phone: [facility] 03-09-2023 08:11-0400 Body weight 90 kg DO Nathan Ball Work Phone: [facility] 03-07-2023 10:14-0400 Diastolic blood pressure 70 mm[Hg] Nathan E Ball Work Phone: [facility] [employer] DO Work Phone: 03-07-2023 10:14-0400 Systolic blood pressure 138 mm[Hg] Nathan E Ball Work Phone: [facility] [employer] DO Work Phone: 03-07-2023 10:04-0400 Body height 165.1 cm Nathan E Ball Work Phone: [facility] [employer] DO Work Phone: 03-07-2023 10:04-0400 Body mass index (BMI) [Ratio] 33.95 kg/m2 Nathan E Ball Work Phone: [facility] [employer] DO Work Phone: 03-07-2023 10:04-0400 Body surface area Derived from formula 1.99 m2 Nathan E Ball Work Phone: [facility] [employer] DO Work Phone: 03-07-2023 10:04-0400 Body weight 92.53 kg Nathan E Ball Work Phone: [facility] [employer] DO Work Phone: 03-07-2023 10:04-0400 Diastolic blood pressure 72 mm[Hg] Nathan E Ball Work Phone: [facility] [employer] DO Work Phone: 03-07-2023 10:04-0400 Heart rate 45 /min Nathan E Ball Work Phone: [facility] [employer] DO Work Phone: 03-07-2023 10:04-0400 Systolic blood pressure 144 mm[Hg] Nathan E Ball Work Phone: [facility] [employer] DO Work Phone: 02-14-2023 11:15-0400 Body height 165.1 cm Nathan Ball Other [employer] Other 02-14-2023 11:15-0400 Body mass index (BMI) [Ratio] 32.61 kg/m2 Nathan Ball Other [employer] Other 02-14-2023 11:15-0400 Body weight 88.91 kg Nathan Ball Other [employer] Other 02-14-2023 11:15-0400 Diastolic blood pressure 72 mm[Hg] Nathan Ball Other [employer] Other 02-14-2023 11:15-0400 Respiratory rate 12 /min Nathan Ball Other [employer] Other 02-14-2023 11:15-0400 Systolic blood pressure 204 mm[Hg] Nathan Ball Other [employer] Other 02-02-2023 12:15-0400 Body height 165.1 cm Nathan Ball Other [employer] Other 02-02-2023 12:15-0400 Body mass index (BMI) [Ratio] 32.78 kg/m2 Nathan Ball Other [employer] Other 02-02-2023 12:15-0400 Body weight 89.36 kg Nathan Ball Other [employer] Other 02-02-2023 12:15-0400 Diastolic blood pressure 70 mm[Hg] Nathan Ball Other [employer] Other 02-02-2023 12:15-0400 Respiratory rate 12 /min Nathan Ball Other [employer] Other 02-02-2023 12:15-0400 Systolic blood pressure 201 mm[Hg] Nathan Ball Other [employer] Other 12-14-2022 10:00-0500 Body height 165.1 cm Nathan Ball Other [employer] Other 12-14-2022 10:00-0500 Body mass index (BMI) [Ratio] 32.53 kg/m2 Nathan Ball Other [employer] Other 12-14-2022 10:00-0500 Body weight 88.68 kg Nathan Ball Other [employer] Other 12-14-2022 10:00-0500 Diastolic blood pressure 70 mm[Hg] Nathan Ball Other [employer] Other 12-14-2022 10:00-0500 Respiratory rate 12 /min Nathan Ball Other [employer] Other 12-14-2022 10:00-0500 Systolic blood pressure 140 mm[Hg] Nathan Ball Other [employer] Other 12-04-2022 13:25-0500 Body height 166.4 cm Luis Mckenzie MD Work Phone: [facility] 12-04-2022 13:25-0500 Body temperature 97.11 [degF] Luis Mckenzie MD Work Phone: [facility] 12-04-2022 13:25-0500 Body weight 90.36 kg Luis Mckenzie MD Work Phone: [facility] 12-04-2022 13:25-0500 Diastolic blood pressure 54 mm[Hg] Luis Mckenzie MD Work Phone: [facility] 12-04-2022 13:25-0500 Heart rate 63 /min Luis Mckenzie MD Work Phone: [facility] 12-04-2022 13:25-0500 Respiratory rate 16 /min Luis Mckenzie MD Work Phone: [facility] 12-04-2022 13:25-0500 SaO2% (BldA) [Mass fraction] 96 % Luis Mckenzie MD Work Phone: [facility] 12-04-2022 13:25-0500 Systolic blood pressure 167 mm[Hg] Luis Mckenzie MD Work Phone: [facility] 11-14-2022 15:00-0500 Body height 165.1 cm Nathan Ball Other [employer] Other 11-14-2022 15:00-0500 Body mass index (BMI) [Ratio] 32.53 kg/m2 Nathan Ball Other [employer] Other 11-14-2022 15:00-0500 Body weight 88.68 kg Nathan Ball Other [employer] Other 11-14-2022 15:00-0500 Diastolic blood pressure 72 mm[Hg] Nathan Ball Other [employer] Other 11-14-2022 15:00-0500 Respiratory rate 12 /min Nathan Ball Other [employer] Other 11-14-2022 15:00-0500 Systolic blood pressure 130 mm[Hg] Nathan Ball Other [facility] [employer] Other 05-29-2022 10:06-0400 Body height 166.4 cm Luis Mckenzie MD Work Phone: [facility] 05-29-2022 10:06-0400 Body temperature 97.59 [degF] Luis Mckenzie MD Work Phone: [facility] 05-29-2022 10:06-0400 Body weight 89.72 kg Luis Mckenzie MD Work Phone: [facility] 05-29-2022 10:06-0400 Diastolic blood pressure 50 mm[Hg] Luis Mckenzie MD Work Phone: [facility] 05-29-2022 10:06-0400 Heart rate 50 /min Luis Mckenzie MD Work Phone: [facility] 05-29-2022 10:06-0400 Respiratory rate 16 /min Luis Mckenzie MD Work Phone: [facility] 05-29-2022 10:06-0400 SaO2% (BldA) [Mass fraction] 96 % Luis Mckenzie MD Work Phone: [facility] 05-29-2022 10:06-0400 Systolic blood pressure 155 mm[Hg] Luis Mckenzie MD Work Phone: [facility] Encounters Encounter Date Encounter Type Care Provider Facility Start: 08-04-2025 End: 08-04-2025 ambulatory Nathan Ball DO Work Phone: [facility] Work Phone: Start: 08-04-2025 End: 08-04-2025 Patient encounter procedure Kaia Krishna APRN -[facility] Work Phone: Start: 07-21-2025 End: 07-21-2025 ambulatory Nathan Hathaway DO Work Phone: [facility] Work Phone: Start: 07-21-2025 End: 07-21-2025 Patient encounter procedure Nathan Fransico [facility]ILLY [facility] Work Phone: Start: 07-15-2025 Non-patient / Non-visit Valentin peña MD -[place] [employer] Work Phone: Start: 07-15-2025 End: 07-15-2025 ambulatory NATHAN HATHAWAY Facility:[facility] Start: 07-10-2025 End: 07-10-2025 Telephone encounter Valentin Leonard MD Work Phone: [facility] Comment on above: Orders; Patient Upda te Start: 07-08-2025 End: 07-10-2025 Telephone encounter Paolo Casillas APRN.OPERATING ENGINEER APPRENTICE Work Phone: [facility] Comment on above: Results Start: 07-08-2025 End: 07-08-2025 Patient encounter procedure Paolo Casillas APRN.OPERATING ENGINEER APPRENTICE Work Phone: Hematology/Oncology Start: 07-08-2025 Non-patient / Non-visit Fanny Bedoya APRN AUTO SERVICE REPRESENTATIVE-C -[place] [employer] Work Phone: Start: 07-08-2025 End: 07-08-2025 ambulatory Paolo Casillas APRN.OPERATING ENGINEER APPRENTICE Work Phone: Hematology/Oncology Comment on above: Abnormal SPEP (Prima ry Dx); Primary hypertension; Hyperlipidemia, unspecified hyperlipidemia type; Heart disease; Edema, unspecified type; Monoclonal gammopathy of undetermined significance; Anemia in other chronic diseases classified elsewhere Start: 07-06-2025 End: 07-06-2025 Telephone encounter Paolo Casillas APRN.OPERATING ENGINEER APPRENTICE Work Phone: Hematology/Oncology Comment on above: Lab Orders (nt) Start: 06-24-2025 Non-patient / Non-visit Nathan michelle DO -[place] [employer] Work Phone: Start: 06-23-2025 Non-patient / Non-visit Nathan michelle DO -[facility] Work Phone: Start: 06-19-2025 End: 06-19-2025 ambulatory Nathan Ball DO Work Phone: [facility] Work Phone: Start: 06-19-2025 End: 06-19-2025 Patient encounter procedure Nathan Ball DO -[facility] Work Phone: Start: 05-19-2025 End: 05-19-2025 ambulatory Nathan Ball DO Work Phone: [facility] Work Phone: Start: 05-19-2025 End: 05-19-2025 Patient encounter procedure Nathan Ball DO -[facility] Work Phone: Start: 03-19-2025 End: 03-19-2025 ambulatory Nathan Ball DO Work Phone: [facility] Work Phone: Start: 03-19-2025 End: 03-19-2025 Patient encounter procedure Nathan Ball DO Work Phone: [facility] Work Phone: Start: 03-18-2025 Non-patient / Non-visit Cadence in Fransico DO Work Phone: [facility] Work Phone: Start: 03-17-2025 End: 03-17-2025 Subsequent hospital visit by physician Laura Blair Echo/Vasc Room 2 [facility] Comment on above: Essential hypertensi on; Palpitations Start: 03-17-2025 End: 03-17-2025 ambulatory HOLDEN Lambert [facility] Start: 03-13-2025 End: 03-13-2025 Patient encounter procedure Nathan Ball DO Work Phone: [facility] Work Phone: Start: 02-25-2025 End: 02-25-2025 Bamboo flowsheet Reyna [...] End: 02-12-2025 Emergency department patient visit Nathan [place] Facility:[facility] Start: 02-10-2025 End: 02-10-2025 Clinisync Result Encounter Reyna Esparza MD Work Phone: [facility] External [facility] Unsolicited Start: 02-10-2025 End: 02-10-2025 Clinisync Result Encounter Reyna Esparza MD Work Phone: [facility] External [facility] Unsolicited Start: 01-26-2025 End: 01-26-2025 ambulatory [facility] Start: 01-23-2025 Non-patient / Non-visit Benjam in Ball DO Work Phone: [facility] Work Phone: Start: 01-22-2025 End: 01-22-2025 ambulatory Nathan Hathaway DO Work Phone: [facility] Work Phone: Start: 01-22-2025 End: 01-22-2025 Patient encounter procedure Nathan Ball DO Work [facility] Work Phone: Start: 01-12-2025 End: 01-12-2025 Office outpatient visit 25 minutes Holden Rosado [employer]-OPERATING ENGINEER APPRENTICE Work Phone: [facility] Comment on above: BMI 33.0-33.9,adult (Primary Dx); Essential hypertension; Palpitations; ASHD (arteriosclerotic heart disease); Mixed hyperlipidemia Start: 01-12-2025 End: 01-12-2025 ambulatory HOLDEN Lambert [facility] Ambulatory Start: 12-29-2024 End: 12-29-2024 ambulatory Nathan Hathaway DO Work Phone: [facility] Work Phone: Start: 12-29-2024 End: 12-29-2024 Patient encounter procedure Nathan Fransico DO Work Phone: [facility] Work Phone: Start: 12-18-2024 Non-patient / Non-visit Benjam in Ball DO Work Phone: [facility] Work Phone: Start: 12-16-2024 End: 12-16-2024 Patient encounter procedure Nathan Hathaway DO Work Phone: [facility] Work Phone: Start: 11-25-2024 End: 11-25-2024 Bamboo flowsheet Reyna Esparza MD Work Phone: [facility] Start: 11-25-2024 End: 11-25-2024 Bamdaytono flowselena Esparza MD Work Phone: [facility] Start: 11-25-2024 End: 11-25-2024 Office outpatient new 45 minutes Reyna Esparza MD Work Phone: [facility] Comment on above: Thyroid nodule (CMS/ HCC) (Primary Dx) Start: 11-25-2024 End: 11-25-2024 ambulatory REYNA ESPARZA Not Available Start: 11-19-2024 ambulatory Nathan Hathaway DO Work Phone: [facility] Work Phone: Start: 11-19-2024 Non-patient / Non-visit Benjam in Ball DO Work Phone: [facility] Work Phone: Start: 11-17-2024 End: 11-17-2024 Admission to same day surgery center Nathan Hathaway DO Work Phone: [facility] [place] Work Phone: Start: 11-17-2024 End: 11-17-2024 ambulatory Nathan Hathaway DO Work Phone: [facility] Work Phone: Start: 10-09-2024 End: 10-09-2024 Refill Mildred Braxton COT Work Phone: [facility] Start: 10-08-2024 End: 10-08-2024 Office outpatient visit 25 minutes Edinson Pakdon DO Work Phone: [facility] Comment on above: ASHD (arteriosclerot ic heart disease); Essential hypertension; BMI 33.0-33.9,adult; Former smoker; S/P PTCA (percutaneous transluminal coronary angioplasty); Mixed hyperlipidemia; Coronary arteriosclerosis after percutaneous transluminal coronary angioplasty (PTCA) Start: 10-08-2024 End: 10-08-2024 ambulatory [facility] Ambulatory Start: 09-12-2024 Non-patient / Non-visit Benjam in Fransico DO Work Phone: [facility] Work Phone: Start: 09-11-2024 End: 09-11-2024 ambulatory [facility] Work Phone: Start: 09-11-2024 End: 09-11-2024 Patient encounter procedure [facility] Work Phone: Start: 09-04-2024 Non-patient / Non-visit [facility] Work Phone: Start: 07-16-2024 End: 07-16-2024 ambulatory [facility] Work Phone: Start: 07-16-2024 End: 07-16-2024 Patient encounter procedure [facility] Work Phone: Start: 06-03-2024 End: 06-03-2024 ambulatory DO Nathan Hathaway Work Phone: [facility] Work Phone: Start: 06-03-2024 End: 06-03-2024 Patient encounter procedure DO Nathan Hathaway Work Phone: [facility] Work Phone: Start: 05-20-2024 Non-patient / Non-visit DO Natalio Hathaway Work [facility] Work Phone: Start: 04-30-2024 Non-patient / Non-visit DO Natalio Hathaway Work Phone: [facility] Work Phone: Start: 04-28-2024 End: 04-28-2024 ambulatory FERCHO TSE Not Available Start: 04-21-2024 End: 04-21-2024 Office outpatient visit 15 minutes Holden Lambert [place] [employer]-OPERATING ENGINEER APPRENTICE Work Phone: [facility] Comment on above: Essential hypertensi on (Primary Dx); ASHD (arteriosclerotic heart disease); Mixed hyperlipidemia; BMI 32.0-32.9,adult Start: 04-21-2024 End: 04-21-2024 ambulatory [facility] Start: 03-12-2024 End: 03-12-2024 Subsequent hospital visit by physician Laura Shabazz [facility] Comment on above: ASHD (arteriosclerot ic heart disease) Start: 03-05-2024 End: 03-05-2024 Patient encounter procedure DO Nathan Hathaway Work Phone: [facility] [place] Work Phone: Start: 03-05-2024 End: 03-05-2024 ambulatory DO Nathan Hathaway Work Phone: [facility] Work Phone: Start: 03-05-2024 End: 03-05-2024 Office outpatient visit 25 minutes Holden Rosado [employer]-OPERATING ENGINEER APPRENTICE Work Phone: [facility] Comment on above: ASHD (arteriosclerot ic heart disease) (Primary Dx); Essential hypertension; Mixed hyperlipidemia; BMI 32.0-32.9,adult Start: 02-27-2024 End: 02-27-2024 Patient encounter procedure DO Nathan Hathaway Work Phone: [facility] Work Phone: Start: 02-21-2024 Non-patient / Non-visit DO Natalio Hathaway Work Phone: [facility] Work Phone: Start: 02-20-2024 Non-patient / Non-visit DO Natalio Hathaway Work Phone: [facility] Work Phone: Start: 02-19-2024 Non-patient / Non-visit DO Natalio Hathaway Work Phone: [facility] Work Phone: Start: 02-18-2024 Non-patient / Non-visit DO Natalio Hathaway Work Phone: [facility] Work Phone: Start: 02-13-2024 End: 02-13-2024 ambulatory [facility] Work Phone: Start: 02-13-2024 End: 02-13-2024 Patient encounter procedure [facility] Work Phone: Start: 02-02-2024 Non-patient / Non-visit [facility] Work Phone: Start: 02-01-2024 End: 02-01-2024 ambulatory [facility] Work Phone: Start: 02-01-2024 End: 02-01-2024 Patient encounter procedure [facility] Work Phone: Start: 01-04-2024 End: 01-04-2024 ambulatory Nathan Ball Other [employer] Other Start: 01-04-2024 Telephone encounter Nathan Hathaway [facility] Start: 12-18-2023 Non-patient / Non-visit [facility] Work Phone: Start: 11-27-2023 End: 11-27-2023 ambulatory Nathan Ball Other [employer] Other Start: 11-27-2023 Telephone encounter Nathan Ball [facility] Start: 11-02-2023 End: 11-02-2023 ambulatory Nathan Ball Other [employer] Other Start: 11-02-2023 Office outpatient vi sit 25 minutes Nathan Ball [facility] Start: 10-02-2023 End: 10-02-2023 ambulatory Nathan Ball Other [employer] Other Start: 10-02-2023 Office outpatient vi sit 25 minutes Nathan Ball [facility] Start: 09-26-2023 End: 09-26-2023 ambulatory Nathan Ball Other [employer] Other Start: 09-26-2023 Telephone encounter Nathan Ball [facility] Start: 09-21-2023 End: 09-21-2023 ambulatory Nathan Ball Other [employer] Other Start: 09-21-2023 Telephone encounter Nathan Ball [facility] Start: 2023 End: 2023 ambulatory Nathan Ball Other [employer] Other Start: 2023 Telephone encounter Nathan Ball [facility] Start: 09-13-2023 End: 09-13-2023 ambulatory Nathan Ball Other [employer] Other Start: 09-13-2023 Telephone encounter Nathan Ball [facility] Start: 09-11-2023 End: 09-11-2023 ambulatory Nathan Ball Other [employer] Other Start: 09-11-2023 Office outpatient vi sit 15 minutes Nathan Ball [facility] Start: 08-16-2023 End: 08-16-2023 ambulatory Nathan Ball Other [employer] Other Start: 08-16-2023 Telephone encounter Nathan Ball [facility] Start: 07-31-2023 End: 07-31-2023 ambulatory Nathan Ball Other [employer] Other Start: 07-31-2023 Telephone encounter Nathan Ball [facility] Start: 07-30-2023 End: 07-30-2023 ambulatory Nathan Ball Other [employer] Other Start: 07-30-2023 Telephone encounter Nathan Ball [facility] Start: 07-19-2023 End: 07-19-2023 ambulatory Nathan Ball Other [employer] Other Start: 07-19-2023 Telephone encounter Nathan Ball [facility] Start: 07-18-2023 End: 07-18-2023 ambulatory Nathan Ball Other [employer] Other Start: 07-18-2023 Telephone encounter Nathan Ball [facility] Start: 07-17-2023 End: 07-17-2023 ambulatory Nathan Ball Other [employer] Other Start: 07-17-2023 Nursing evaluation o f patient and report Nathan Hathaway [facility] Start: 06-28-2023 End: 06-28-2023 ambulatory Nathan Ball Other [employer] Other Start: 06-28-2023 Telephone encounter Nathan Hathaway [facility] Start: 06-25-2023 End: 06-25-2023 ambulatory Ntahan Hathaway Other [employer] Other Start: 06-25-2023 Telephone encounter Nathan Hathaway [facility] Start: 06-21-2023 End: 06-21-2023 ambulatory Nathan Hathaway Other [employer] Other Start: 06-21-2023 Telephone encounter Nathan Hathaway [facility] Start: 06-19-2023 End: 06-19-2023 ambulatory Nathan Hathaway Other [employer] Other Start: 06-19-2023 Telephone encounter Nathan Hathaway [facility] Start: 06-18-2023 End: 06-18-2023 ambulatory Nathan Hathaway Other [employer] Other Start: 06-18-2023 Telephone encounter Nathan Hathaway [facility] Start: 06-15-2023 End: 06-15-2023 ambulatory Nathan Hathaway Other [employer] Other Start: 06-15-2023 Telephone encounter Nathan Hathaway [facility] Start: 06-08-2023 End: 06-08-2023 ambulatory Nathan Hathaway Other [employer] Other Start: 06-08-2023 Office outpatient vi sit 15 minutes Nathan Hathaway [facility] Start: 06-06-2023 Telephone encounter Cristy Rico Hemat[facility]/Oncology Comment on above: Results Start: 06-04-2023 End: 06-04-2023 ambulatory Luis Mckenzie MD Work Phone: [employer] Other Comment on above: Abnormal SPEP (Prima ry Dx); Anemia, unspecified type; Neuropathy - (NOS); Heart disease Start: 06-04-2023 End: 06-04-2023 Patient encounter procedure Luis Mckenzie MD Work Phone: [facility] Start: 06-04-2023 Telephone encounter Nathan Hathaway [facility] Start: 06-01-2023 End: 06-01-2023 ambulatory Nathan Hathaway Other [employer] Other Start: 06-01-2023 Telephone encounter Nathan Hathaway [facility] Start: 05-25-2023 End: 05-25-2023 ambulatory Nathan Hathaway Other [employer] Other Start: 05-25-2023 Transitional care julito stark srvc 14 day discharge Nathan Hathaway [facility] Start: 05-17-2023 End: 05-18-2023 Evaluation and management of inpatient DO Nathan Hathaway Work Phone: [facility] [place] [facility] Work Phone: Start: 05-17-2023 End: 05-18-2023 observation encounter DO Nathan Hathaway Work Phone: [facility] Work Phone: Start: 05-16-2023 End: 05-16-2023 ambulatory Nathan Hathaway Other [employer] Other Start: 05-16-2023 Office outpatient vi sit 25 minutes Nathan Hathaway [facility] Start: 05-09-2023 End: 05-09-2023 ambulatory Nathan Hathaway Other [employer] Other Start: 05-09-2023 Office outpatient vi sit 25 minutes Nathan Hathaway [facility] Start: 05-09-2023 Telephone encounter Nathan Hathaway Work Phone: [facility] DO Work Phone: Start: 04-26-2023 End: 04-26-2023 ambulatory Nathan Hathaway Other [employer] Other Start: 04-26-2023 Office outpatient vi sit 25 minutes Nathan Hathaway [facility] Start: 04-26-2023 Telephone encounter Nathan Hathaway [facility] Start: 04-18-2023 End: 04-18-2023 ambulatory Nathan Hathaway Other [employer] [employer] Other Start: 04-18-2023 Office outpatient vi sit 25 minutes Nathan Hathaway [facility] Start: 04-18-2023 Telephone encounter Nathan Hathaway [facility] Start: 03-27-2023 End: 03-27-2023 ambulatory Nathan Hathaway Other [employer] Other Start: 03-27-2023 Telephone encounter Nathan Hathaway [facility] Start: 03-15-2023 End: 03-15-2023 ambulatory Nathan Hathaway Other [facility] [employer] Other Start: 03-15-2023 Office outpatient vi sit 25 minutes Nathan Hathaway [facility] Start: 03-09-2023 End: 03-09-[address] Edinson Perry [facility] [employer] Other Start: 03-09-2023 Telephone encounter Nathan Hathaway [facility] Start: 03-09-2023 SURGNON, Provider: Edinson Perry, Status: Pen, Time: 10:00 AM Nathan Hathaway Work Phone: [facility] DO Work Phone: Start: 03-09-2023 End: 03-09-2023 Admission to same day surgery center DO Nathan Ball Work Phone: [facility] Work Phone: Start: 03-08-2023 End: 03-08-2023 ambulatory DO Nathan Ball Work Phone: [facility] Work Phone: Start: 03-08-2023 End: 03-08-2023 Patient encounter procedure DO Nathan Ball Work Phone: [facility] Work Phone: Start: 03-07-2023 Office consultation new/estab patient 80 min Nathan Hathaway Work Phone: [facility] DO Work Phone: Start: 03-07-[address] Edinson albrecht [place] Facility: Start: 03-05-2023 End: 03-05-2023 ambulatory Nathan Hathaway Other [employer] Other Start: 03-05-2023 Telephone encounter Nathan Hathaway [facility] Start: 03-01-2023 End: 03-02-[address] NATHAN HATHAAWY Facility:[facility] Start: 02-27-2023 End: 02-27-2023 ambulatory Nathan Hathaway Other [facility] Other Start: 02-27-2023 Telephone encounter Nathan Hathaway [facility] Start: 02-20-2023 End: 02-20-2023 ambulatory Nathan Hathaway Other [facility] Other Start: 02-20-2023 Telephone encounter Nathan Hathaway [facility] Start: 02-14-2023 End: 02-14-2023 ambulatory Nathan Fransico Other [facility] Other Start: 02-14-2023 Office outpatient vi sit 25 minutes Nathan [facility] Start: 02-14-2023 Telephone encounter Nathan Fransico [facility] Start: 02-11-2023 End: 02-11-2023 ambulatory Nathan Fransico Other [facility] Other Start: 02-11-2023 Telephone encounter Nathan Hathaway [facility] Start: 02-08-2023 End: 02-09-2023 Evaluation and management of inpatient DR NATHAN HATHAWAY Facility:H1 Start: 02-02-2023 End: 02-02-2023 ambulatory Nathan Hathaway Other [facility] Other Start: 02-02-2023 Office outpatient vi sit 25 minutes Nathan Hathaway [facility] Start: 01-08-2023 End: 01-09-[address] NATHAN HATHAWAY Facility:H1 Start: 12-21-2022 End: 12-21-2022 ambulatory Nathan Hathaway Other [facility] Other Start: 12-21-2022 Telephone encounter Nathan Hathaway [facility] Start: 12-20-2022 End: 12-20-2022 ambulatory Nathan Hathaway Other [facility] Other Start: 12-20-2022 Telephone encounter Nathan Hathaway [facility] Start: 12-14-2022 End: 12-14-2022 ambulatory Nathan Hathaway Other [facility] Other Start: 12-14-2022 Patient encounter procedure Nathan Hathaway [facility] Start: 12-04-2022 End: 12-04-2022 ambulatory Luis Mckenzie MD Work Phone: Hematology/Oncology Comment on above: Abnormal SPEP (Prima ry Dx); Neuropathy - (NOS); Lung nodules Start: 12-04-2022 End: 12-04-2022 Patient encounter procedure Luis Mckenzie MD Work Phone: [place] Start: 11-23-2022 End: 11-23-2022 ambulatory Nathan Hathaway Other [facility] Other Start: 11-23-2022 Telephone encounter Nathan CHURCHILL [facility] Start: 11-16-2022 End: 11-17-[address] NTAHAN HATHAWAY Facility:H1 Start: 11-14-2022 End: 11-14-2022 ambulatory Nathan Hathaway Other [facility] Other Start: 11-14-2022 Office outpatient vi sit 25 minutes Nahtan Hathaway [facility] Start: 09-11-2022 End: 09-12-[address] NATHAN HATHAWAY Facility:H1 Start: 08-29-2022 Telephone encounter Cristy Rico Hematology/Oncology Comment on above: Results Start: [...] 05-04-2022 End: 05-04-[address] NATHAN HATHAWAY Facility: Start: 12-13-2021 Adult health examination Lauri Hathaway Other [facility] Other Procedures Date Procedure Procedure Detail Performing Clinician Start: 02-12-2025 Plain chest X-ray Lauri Hathaway DO Work Phone: Start: 02-10-2025 Us soft tissue head & neck real time imge docm Reyna Esparza MD Work Phone: Start: 11-17-2024 Aspiration Nathan B all DO Work Phone: Start: 03-12-2024 Cv strs tst xers&/or rx cont ecg trcg only Holden Rosado [employer]-OPERATING ENGINEER APPRENTICE Work Phone: Start: 10-17-2023 History of placement of stent for coronary artery disease S/P coronary artery stent placement Holden Rosado [employer]-OPERATING ENGINEER APPRENTICE Work Phone: Start: 05-17-2023 CT angiography of thorax DO Nathan Hathaway Work Phone: Start: 05-17-2023 Duplex scan of lower limb veins DO Nathan Hathaway Work Phone: Start: 03-09-2023 CL Ivus Initial Vessel DO Nathan Hathaway Work Phone: Start: 03-09-2023 CL LHC & COR Angio DO B enjamin Fransico Work Phone: Start: 03-09-2023 CL Stent 1st [...] for osteoporosis Nathan Hathaway Other Depression screening Benjami n Fransico Other Hysterectomy Nathan E Fransico Work Phone: Screening for malign ant neoplasm of breast [facility] Ball Other Screening for malign ant neoplasm of breast Nathan Hathaway Other Total colonoscopy Nathan E Fransico Work Phone: Comment on above: 2012; Plan of Treatment Date Care Activity Detail Author Start: 07-08-2028 Diabetes Screening Diabetes Screening [facility] Start: 03-05-2027 Diabetes Screening Diabetes Screening [facility] Start: 11-05-2026 Diabetes Screening Diabetes Screening [facility] Start: 06-04-2026 DIABETES SCREEN DIABETES SCREEN [facility] Start: 11-27-2025 DIABETES SCREEN DIABETES SCREEN [facility] Start: 10-27-2025 End: 10-27-2025 Patient encounter procedure 10/27/2025 2:10 PM EST Office Visit [facility] [address] [facility] [address] [place] [address] Edinson Perry DO [address] [facility] [address] [place] [address] [facility] Start: 10-07-2025 End: 10-07-2025 ambulatory 10/07/2025 3:00 PM EST Visit (SP) Office Hematology/Oncology [address] [address] Valentin Leonard MD [address] [address] 3 month ELDON with lab Hematology/Oncology Comment on above: 3 month ELDON with lab Start: 10-07-2025 End: 10-07-2025 Patient encounter procedure 10/07/2025 2:45 PM EST Office Visit [facility] [address] [address] 3 month ELDON with lab [facility] Comment on above: 3 month ELDON with lab Start: 08-24-2025 DIABETES SCREEN DIABETES SCREEN [facility] Start: 07-21-2025 Patient referral [facility] Work Phone: Start: 07-08-2025 End: 07-08-2025 ambulatory 07/08/2025 10:00 AM EDT Visit (SP) Office Hematology/Oncology [address] [place] [address] Paolo Casillas APRN.[facility] [address] [address] Dr Hathaway 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 [facility] Hematology/Oncology Comment on above: Dr Hathaway 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 [facility] Start: 07-08-2025 End: 07-08-2025 Patient encounter procedure 07/08/2025 10:00 AM EDT Office Visit [facility] [address] [address] Labs Per January Staff Message [facility] Comment on above: Labs Per January Staff Message Start: 07-06-2025 End: 10-05-2025 CBC W Auto Differential panel - Blood COMPLETE BLOOD COUNT AND DIFFERENTIAL Lab Routine Abnormal SPEP Expected: 07/06/2025, Expires: 10/05/2025 [facility] Work Phone: Comment on above: Expected: 07/06/2025, Expires: Start: 07-06-2025 End: 10-05-2025 Comprehensive metabolic 2000 panel - Serum or Plasma COMPREHENSIVE METABOLIC PANEL Lab Routine Abnormal SPEP Expected: 07/06/2025, Expires: 10/05/2025 [facility] Comment on above: Expected: 07/06/2025, Expires: Start: 07-06-2025 End: 10-05-2025 MONOCLONAL PROTEIN, SERUM (BLOOD) MONOCLONAL PROTEIN, SERUM (BLOOD) Lab Routine Abnormal SPEP Expected: 07/06/2025, Expires: 10/05/2025 [facility] Comment on above: Expected: 07/06/2025, Expires: Start: 07-06-2025 End: 10-05-2025 PROTEIN ELECTROPHORESIS SERUM W/INTERP PROTEIN ELECTROPHORESIS SERUM W/INTERP Lab Routine Abnormal SPEP Expected: 07/06/2025, Expires: 10/05/2025 [facility] Comment on above: Expected: 07/06/2025, Expires: Start: 06-29-2025 Influenza vaccination [facility] Start: 05-22-2025 DIABETES SCREEN DIABETES SCREEN [facility] Start: 05-04-2025 COVID-19 Vaccine ( season) COVID-19 Vaccine () [facility] Start: 04-29-2025 End: 04-29-2025 Patient encounter procedure 04/29/2025 9:30 AM EDT Office Visit [facility] [address] [place] [address] Fercho Tse DO [address] [place] [address] [facility] Start: 03-17-2025 End: 03-17-2025 Patient encounter procedure 03/17/2025 10:45 AM EDT Appointment [place] [address] [place] [address] [facility] Start: 02-25-2025 End: 02-25-2025 Patient encounter procedure [facility] Comment on above: Arrived Start: 01-26-2025 End: 01-26-2025 Professional / ancillary services management 01/26/2025 3:00 PM EDT Ancillary Procedure [place] [address] [address] [place] [address] [facility] Start: 01-12-2025 End: 01-12-2026 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 Cardiac Services Routine Palpitations Expected: 01/12/2025 (Approximate), Expires: 01/12/2026 [facility] Service Area Work Phone: Comment on above: Expected: 01/12/2025 (Approximate), Expi res: 01/12/2026 Start: 01-12-2025 End: 01-12-2027 US Heart Transthoracic Transthoracic Echo Complete Echocardiography Routine Essential hypertension Palpitations Expected: 01/12/2025 (Approximate), Expires: 01/12/2027 [facility] Work Phone: Comment on above: Expected: 01/12/2025 (Approximate), Expi res: 01/12/2027 Start: 11-25-2024 End: 11-25-2024 Patient encounter procedure 11/25/2024 2:00 PM EST Office Visit [facility] [address] [facility] [facility] [address] [place] [address] Reyna Esparza MD [address] [facility] [address] [place] [address] Arrived [facility] Comment on above: Arrived Start: 11-19-2024 Patient referral [facility] Work Phone: Start: 11-17-2024 [facility] Start: 11-17-2024 Aspiration [facility] Start: 10-29-2024 Advance Directive Discussion Advance Directive Discussion [facility] Start: 10-08-2024 End: 10-08-2024 Patient encounter procedure 10/08/2024 10:40 AM EST Office Visit [address] [place] [address] Edinson Perry, [address] [facility] [address] [place] [address] [facility] Start: 06-29-2024 Covid-19 Vaccine ( season) Covid-19 Vaccine () [facility] Start: 06-29-2024 Influenza vaccination [facility] Start: 04-21-2024 End: 04-21-2025 Basic metabolic 2000 panel - Serum or Plasma Basic Metabolic Panel Lab Routine ASHD (arteriosclerotic heart disease) Expected: 04/21/2024 (Approximate), Expires: 04/21/2025 [facility] Service Area Work Phone: Comment on above: Expected: 04/21/2024 (Approximate), Expi res: 04/21/2025 Start: 04-21-2024 End: 04-21-2024 Patient encounter procedure 04/21/2024 10:30 AM EDT Office Visit [address] [place] [address] Holden Rosado, [employer]ARMWORK[employer] FARM-OPERATING ENGINEER APPRENTICE [address] [facility] [address] [place] [address] [facility] Start: 03-12-2024 End: 03-12-2024 Patient encounter procedure 03/12/2024 10:15 AM EDT Appointment [address] [place] [id number] [facility] Start: 03-12-2024 End: 03-12-2024 Patient encounter procedure [facility] Start: 03-05-2024 End: 03-05-2025 Basic metabolic 2000 panel - Serum or Plasma Basic Metabolic Panel Lab Routine Essential hypertension Expected: 03/05/2024 (Approximate), Expires: 03/05/2025 [facility] Work Phone: Comment on above: Expected: 03/05/2024 (Approximate), Expi res: 03/05/2025 Start: 03-05-2024 End: 03-05-2026 NM Heart Perfusion W stress and W radionuclide IV Nuclear Stress Test Cardiac Nuclear Medicine Routine ASHD (arteriosclerotic heart disease) Expected: 03/05/2024 (Approximate), Expires: 03/05/2026 [facility] Service Area Work Phone: Comment on above: Expected: 03/05/2024 (Approximate), Expi res: 03/05/2026 Start: 02-09-2024 Echocardiography Echocardiogram [facility] Start: 10-29-2023 Advance Directive Discussion Advance Directive Discussion [facility] Start: 09-18-2023 FUV, Provider: Edinson Perry, Status: Pen, Time: 11:20 AM FUV, Provider: Edinson Perry, Status: Pen, Time: 11:20 AM [facility] [address] DO Work Phone: Start: 06-29-2023 COVID-19 Vaccine ( season) COVID-19 Vaccine ( season) [facility] Start: 06-29-2023 Influenza vaccination INFLUENZA (#1) [facility] Start: 05-29-2023 Adult depression screening assessment DEPRESSION SCREENING [facility] Start: 05-29-2023 FUV, Provider: Edinson Perry, Status: Nahid, Time: 10:20 AM FUV, Provider: Edinson Perry, Status: Pen, Time: 10:20 AM [facility] [address] DO Work Phone: Start: 05-18-2023 [facility] Start: 05-17-2023 Hospital admission [facility] Start: 03-09-2023 [facility] Start: 01-13-2023 COVID-19 VACCINE (6 - Pfizer series) COVID-19 VACCINE (6 - Pfizer series) [facility] Start: 11-22-2022 Adult depression screening assessment DEPRESSION SCREENING [facility] Start: 10-29-2022 ADVANCE DIRECTIVE DISCUSSION ADVANCE DIRECTIVE DISCUSSION [facility] Start: 10-29-2022 DEPRESSION ASSESSMENT DEPRESSION ASSESSMENT [facility] Start: 10-13-2022 COVID-19 Vaccine (3 - Pfizer risk series) COVID-19 Vaccine (3 - Pfizer risk series) [facility] Start: 06-29-2022 Influenza vaccination INFLUENZA (#1) [facility] Start: 03-25-2022 COVID-19 VACCINE (5 - Booster for Pfizer series) COVID-19 VACCINE (5 - Booster for Pfizer series) [facility] Start: 10-29-2021 ADVANCE DIRECTIVE DISCUSSION ADVANCE DIRECTIVE DISCUSSION [facility] Start: 10-29-2021 DEPRESSION ASSESSMENT DEPRESSION ASSESSMENT [facility] Start: 09-16-2021 Shingrix Vaccine (3 of 3) Shingrix Vaccine (3 of 3) [facility] Start: 09-16-2021 Zoster Vaccines (2 of 2) Zoster Vaccines (2 of 2) [facility] Start: 07-16-2021 SHINGRIX VACCINE (2 of 2) SHINGRIX VACCINE (2 of 2) [facility] Start: 2017 RSV High Risk: (Elderly (60+) or Population) (1 - 1-dose 75+ series) RSV High Risk: (Elderly (60+) or Population) (1 - 1-dose 75+ series) [facility] Start: 2017 RSV Vaccine (1 - 1-dose 75+ series) RSV Vaccine (1 - 1-dose 75+ series) [facility] Start: 07-17-2014 DTaP/Tdap/Td Vaccines (1 - Tdap) DTaP/Tdap/Td Vaccines (1 - Tdap) [facility] Start: 07-17-2014 Urine microalbumin profile DTaP,Tdap,Td Vaccine (1 - Tdap) [facility] Start: 2007 BONE DENSITY BONE DENSITY [facility] Start: 2007 PNEUMOCOCCAL: 65+ (1 - PCV) PNEUMOCOCCAL: 65+ (1 - PCV) [facility] Start: 2007 Screening for osteoporosis Bone Density Screening [facility] Start: 08-29-2007 Medicare Annual Wellness Visit Medicare Annual Wellness Visit [facility] Start: 2002 RSV patients and/or patients aged 60+ years (1 - 1-dose 60+ series) RSV patients and/or patients aged 60+ years (1 - 1-dose 60+ series) [facility] Start: 1964 DTaP/Tdap/Td Vaccines (1 - Tdap) DTaP/Tdap/Td Vaccines (1 - Tdap) [facility] Start: 1961 Urine microalbumin profile DTAP,TDAP,TD (1 - Tdap) [facility] Start: 1960 Anxiety Screening Anxiety Screening [facility] Start: 1960 Depression Screening Depression Screening [facility] Start: 1960 Diabetes mellitus screening Diabetes Screening [facility] Start: 1942 Creatinine measurement Creatinine Level [facility] Start: 1942 Lipid panel Lipid Panel [facility] Start: 1942 Medicare Annual Wellness Visit Medicare Annual Wellness Visit (AWV) [facility] Start: 1942 Potassium measurement Potassium Level [facility] Start: 1942 Screening for osteoporosis Bone Density Scan [facility] Comprehensive metabo lic 2000 panel - Serum or Plasma [facility] End: 06-28-2023 Ct abdomen & pelvis w/contrast material CT ABD/PEL W IVCON Radiology Routine Disorder of adrenal gland (HCC) 1 Occurrences starting 05/29/2022 until 06/28/2023 [facility] Work Phone: Comment on above: 1 Occurrences starting 05/29/2022 until 06/28/2023 End: 06-28-2023 CT CHEST W IVCON CT CHEST W IVCON Radiology Routine Lung nodules 1 Occurrences starting 05/29/2022 until 06/28/2023 [facility] Work Phone: Comment on above: 1 Occurrences starting 05/29/2022 until 06/28/2023 Patient Education [facility] Work Phone: Patient referral [facility] Work Phone: End: 03-17-2025 US Heart Transthoracic [facility] Service Area Work Phone: Comment on above: Once for 1 Occurrences starting 03/17/20 25 until 03/17/2025 XR Knee - right 4 Views [facility] Immunizations Immunization Date Immunization Notes Care Provider Fa cility 07-16-2024 influenza, high dose seasonal, preservative-free [facility] 07-16-2024 influenza virus vaccine, unspecified formulation Paolo Casillas APRN.CNP Work Phone: [facility] 08-06-2023 influenza virus vaccine, unspecified formulation [facility] 08-06-2023 influenza, high dose seasonal, preservative-free Nathan Hathaway Other [facility] Other 09-15-2022 COVID-19 Pfizer (Pediatric) Nathan Hathaway Other [facility] 09-15-2022 Pfizer COVID-19 Vac Bivalent 30 MCG/0.3ML Intramuscular Suspension Nathan Hathaway Work Phone: [facility] 08-11-2022 influenza virus vaccine, split virus (incl. purified surface antigen) Nathan Hathaway Other [facility] Other 08-11-2022 influenza virus vaccine, unspecified formulation [facility] 01-28-2022 COVID-19 mRNA, Comirnaty (Pfizer) DO Nathan Hathaway Work Phone: [facility] 01-28-2022 COVID-19 Pfizer Nathan michelle Other [facility] 07-30-2021 COVID-19 vaccine, ag e 12+ yr (Satellogic-BIOOGPlanet - PURPLE TOP) Luis Mckenzie MD Work Phone: [facility] 07-22-2021 zoster vaccine, live Suly Hathaway Other [facility] 07-19-2021 influenza, high-dose , quadrivalent vaccine (FLUZONE HIGH DOSE QUADRIVALENT) Luis Mckenzie MD Work Phone: [facility] 07-18-2021 influenza virus vaccine, split virus (incl. purified surface antigen) Nathan Hathaway Other [facility] Other 07-18-2021 influenza virus vaccine, unspecified formulation [facility] 05-21-2021 zoster vaccine recombinant Luis Mckenzie MD Work Phone: [facility] 05-21-2021 zoster vaccine, live Benjami n Fransico Other [facility] 12-18-2020 COVID-19 vaccine, ag e 12+ yr (PFIZER-BIONTECH - PURPLE TOP) Luis Mckenzie MD Work Phone: [facility] 11-27-2020 COVID-19 Vaccine Moderna - Documentation Purposes Only Nathan Hathaway Other [facility] 11-27-2020 COVID-19 vaccine, ag e 12+ yr (PFIZER-BIONTECH - PURPLE TOP) Luis Mckenzie MD Work Phone: [facility] 08-11-2020 influenza virus vaccine, split virus (incl. purified surface antigen) Nathan Hathaway Other Travel Notes [facility] [employer] Other 08-11-2020 influenza virus vaccine, unspecified formulation [facility] 07-09-2019 AS03 adjuvant Arrival Radiol ogy Work Phone: [facility] 07-09-2019 Seasonal trivalent influenza vaccine, adjuvanted, preservative free Luis Mckenzie MD Work Phone: [facility] 08-13-2018 AS03 adjuvant Arrival Radiol ogy Work Phone: [facility] 08-13-2018 influenza virus vaccine, split virus (incl. purified surface antigen) Nathan Hathaway Other [facility] Other 08-13-2018 influenza virus vaccine, unspecified formulation [facility] 08-13-2018 Seasonal trivalent influenza vaccine, adjuvanted, preservative free Luis Mckenzie MD Work Phone: [facility] 08-03-2017 influenza virus vaccine, split virus (incl. purified surface antigen) Nathan Hathaway Other [facility] [employer] Other 08-03-2017 influenza virus vaccine, unspecified formulation [facility] 08-03-2017 influenza, high dose seasonal, preservative-free Luis Mckenzie MD Work Phone: [facility] 07-13-2016 influenza virus vaccine, split virus (incl. purified surface antigen) Nathan Hathaway Other [facility] [employer] Other 07-13-2016 influenza virus vaccine, unspecified formulation [facility] 09-13-2015 pneumococcal conjuga te vaccine, 13 valent Nathan Hathaway Other [facility] 08-17-2015 influenza virus vaccine, split virus (incl. purified surface antigen) Nathan Hathaway Other [facility] [employer] Other 08-17-2015 influenza virus vaccine, unspecified formulation [facility] 07-16-2014 tetanus and diphther ia toxoids, adsorbed, preservative free, for adult use (5 Lf of tetanus toxoid and 2 Lf of diphtheria toxoid) Nathan Hathaway Other [facility] 07-09-2013 tetanus and diphther ia toxoids, adsorbed, preservative free, for adult use (5 Lf of tetanus toxoid and 2 Lf of diphtheria toxoid) Nathan Hathaway Other [facility] 08-11-2010 pneumococcal polysaccharide vaccine, 23 valent Nathan Hathaway Other [facility] Payers Date Payer Category Payer Medicare supplementa l policy (as second payer) [employer] [id number] 2022 Unknown 2020 Private Health Insurance [facility] SUPPLE[facility] [id number] 2020-Present [phone] [address] [place] [address] Indemnity [id number] 2020 Private Health Insurance [id number] 2007 Medicare MEDICARE MEDICAR E A AND B [id number] 2007-Present [phone] [place] [address] Medicare [id number] 2007 Medicare [id number] 1959 Medicare [id number] 1959 Unknown [id number] 2.16.840.1.969144.19 1942 Unknown [id number] 2.16.840.1.256050.3.579. 2.593 1942 Unknown [id number] 2.16.840.1.340503.3.579. 2.593 1942 Unknown [id number] 2.16.840.1.126444.3.579. 2.593 1942 Unknown [id number] 2.16.840.1.092478.3.579. 2.593 1942 Unknown [id number] 2.16.840.1.460656.3.579. 2.593 1942 Unknown [id number] 2.16.840.1.799031.3.579. 2.593 1942 Unknown [id number] 2.16.840.1.846811.3.579. 2.593 1942 Unknown [id number] 2.16.840.1.448223.3.579. 2.356 1942 Unknown [id number] 2.16.840.1.684651.3.579. 2.356 1942 Unknown [id number] 2.16.840.1.481399.3.579. 2.1259 1942 Unknown [id number] 2.16.840.1.226470.3.579. 2.1259 1942 Unknown [id number] 2.16.840.1.080018.3.579. 2.1259 1942 Unknown [id number] 2.16.840.1.068982.3.579. 2.1244 1942 Unknown [id number] 2.16.840.1.135795.3.579. 2.1244 1942 Unknown [id number] 2.16.840.1.644288.3.579. 2.1244 1942 Unknown [id number] 2.16.840.1.994575.3.579. 2.1244 1942 Unknown [id number] 2.16.840.1.484855.3.579. 2.1246 Medicare Medicare Outpatient [id number] Unknown [id number] Social History Date Type Detail Facility Start: 08-01-2021 End: 03-05-2024 Tobacco smoking status [facility] Ex-smoker [facility] End: 10-29-1992 History of tobacco use Cigarette Smoker [facility] Start: 08-01-2021 End: 03-05-2024 Tobacco use and exposure Smokeless tobacco non-user [facility] Start: 1942 Sex Assigned At Not on file [facility] Start: 05-12-2022 End: 03-17-2025 Exposure to SARS-CoV-2 (event) Not sure [facility] End: 10-29-1992 History of tobacco use Current smoker [facility] Start: 12-04-2022 End: 06-04-2023 Sex Assigned At [facility] Start: 12-04-2022 End: 06-04-2023 No illicit drug use No illicit drug use [facility] Comment on above: 2 coffees in am and 1 coffee at hs; 1997; Start: 1940 Sex Assigned At Female [facility] Start: 06-04-2023 End: 07-08-2025 Alcohol intake Ex-drinker (finding) [facility] Start: 09-29-2012 Adult Depression Screening Assessment 0 [facility] Start: 12-18-2023 End: 02-12-2025 Tobacco smoking status NHIS Never smoked tobacco (finding) [facility] Start: 03-05-2024 End: 01-12-2025 Alcoholic beverage intake Lifetime non-drinker (finding) [facility] Work Phone: Start: 09-11-2024 End: 03-19-2025 Sex Female (finding) [facility] Medical Equipment Procedure Code Equipment Code [...] Facility 05-18-2023 Functional status Patient at Baseline [facility] Work Phone: 03-09-2023 Functional status Patient at Baseline [facility] Work Phone: Mental Status Date Assessment Result Facility 05-18-2023 Cognitive function Cognitive Sta tus Patient at Baseline [facility] Work Phone: 03-09-2023 Cognitive function Cognitive Sta tus Patient at Baseline [facility] Work Phone: Clinical Notes 05-29-2022 to 07-10-2025 Telephone Encounter - Yolanda Cobian RN - 07/10/2025 2:11 PM EDTTelephone Encounter - Yolanda Cobian RN - 07/10/2025 2:11 PM EDTTelephone Encounter - Cat Landeros S - 07/10/2025 11:37 AM EDT Note Date & Type Note Facility 07-10-2025 Telephone encounter Note Refer to providers phone encounter for details of follow up/intervention Yolanda Cobian RN [facility] 07-10-2025 Miscellaneous Notes Refer to providers phone encounter for details of follow up/intervention Yolanda Cobian RN Labs still pending. Yolanda Cobian RN Please call Her daughter Marianna with today's lab results. [phone] documented in this encounter [facility] 07-10-2025 Telephone encounter Note Called Dr Hathaway's office and spoke with Dayana. I informed her of Mrs Joaquin worsening anemia/renal function and elevated blood proteins (refer to note per Kg Petit PA-C from today). She appreciated the update and will discuss with Dr Hathaway. Yolanda Cobian RN [facility] 07-10-[address] Hathaway's office and spoke with Dayana. I informed her of Mrs Joaquin worsening anemia/renal function and elevated blood proteins (refer to note per Kg Petit PA-C from today). She appreciated the update and will discuss with Dr Hathaway. Yolanda Cobian RN Dr Nathan Hathaway's office is calling today regarding Asking the question why labs were repeated on 07/08/2025 when she just had labs drawn on 06/23/2025. Please call Dr Hathaway's office back. Patient has been identified by name and birthdate. Person calling: Dr Nathan Hathaway's office Please return the call at [phone] KERRY Menendez documented in this encounter [facility] 07-10-[address] Nathan Hathaway's office is calling today regarding Asking the question why labs were repeated on 07/08/2025 when she just had labs drawn on 06/23/2025. Please call Dr Hathaway's office back. Patient has been identified by name and birthdate. Person calling: Dr Nathan Hathaway's office Please return the call at [phone] KERRY Menendez [facility] 07-10-2025 Telephone encounter Note Labs still pending. Yolanda Cobian RN [facility] 07-08-2025 Telephone encounter Note Please call Her daughter Marianna with today's lab results. [phone] [facility] 07-07-2025 Note HNO ID: [id number] Author: PAOLO CASILLAS APRN.OPERATING ENGINEER APPRENTICE Service: ? Author Type: Nurse Practitioner Type: Progress Notes Filed: 07/10/2025 18:42 Note Text: PATIENT NAME: Lashaun Joaquin DATE: 07/08/2025 PRIMARY CARE PHYSICIAN: Dr. Nathan Hathaway OTHER PHYSICIANS: Dr. Perry Portions of this encounter note have been copied from the note from 11/05/2023 and has been updated where appropriate, and reflect my current medical decision making from today. CC: This is an 84 year old female with chronic neuropathy and arthritis, initially referred for evaluation of an abnormal SPEP, seen for scheduled follow-up. INTERIM HISTORY: Patient is an 84-year-old female with a history of MGUS, CAD with stent placement, and hypothyroidism, presenting for follow-up. History of Diagnosis: Patient was last seen in October 2022. She has been under the care of Dr. Hathaway, who referred her back for evaluation due to abnormal proteins in her blood. She has a history of MGUS, which has been monitored for potential progression to multiple myeloma. In 2022, she underwent stent placement by Dr. Perry and has been followed by cardiology, including Dr. Guy and GLORIA Rosado. She also has a history of a thyroid nodule, which was biopsied but the sample was insufficient. She was advised to have regular follow-ups every three months. Recent History: Patient reports generalized edema, wheezing at night, and fatigue. She is currently on an inhaler (Anoro Ellipta) but is unsure of its effectiveness. She notes significant swelling in her legs and feet, with associated itching and burning at night. She has been taking furosemide but reports inadequate diuresis and is awaiting a new prescription for a different diuretic. She also experiences joint pain in her knees, back, and ankles. She reports a recent weight gain of approximately 4 pounds, which she attributes to fluid retention. She denies any unintentional weight loss. She also reports episodes of reflux and has not been consistently taking her prescribed proton pump inhibitor. Patient expresses frustration with her current primary care physician, and is considering changing providers. She is also concerned about her 's health, as he has had multiple recent ER visits for anxiety-related symptoms. MEDICATIONS: Current Outpatient Medications Medication Sig carvedilol (COREG) 12.5 mg tablet TAKE 1 TABLET BY MOUTH TWICE A DAY WITH FOOD/MEAL clopidogrel (PLAVIX) 75 mg tablet TAKE 8 TABLETS BY MOUTH ON DAY ONE THEN TAKE 1 TABLET BY MOUTH DAILY furosemide (LASIX) 20 mg tablet Take 20 mg by mouth two times a day. potassium chloride (K-TAB) 10 mEq tablet Take 10 mEq by mouth two times a day. irbesartan (AVAPRO) 150 mg tablet rOPINIRole (REQUIP) [...] Types: Cigarettes Smokeless tobacco: Never Vaping Use Vap (more content not included)... [facility] 07-07-2025 History of Presen t illness Narrative PATIENT NAME: Lashaun Joaquin DATE: 07/08/2025 PRIMARY CARE PHYSICIAN: Dr. Nathan Hathaway OTHER PHYSICIANS: Dr. Perry Portions of this encounter note have been copied from the note from 11/05/2023 and has been updated where appropriate, and reflect my current medical decision making from today. CC: This is an 84 year old female with chronic neuropathy and arthritis, initially referred for evaluation of an abnormal SPEP, seen for scheduled follow-up. INTERIM HISTORY: Patient is an 84-year-old female with a history of MGUS, CAD with stent placement, and hypothyroidism, presenting for follow-up. History of Diagnosis: Patient was last seen in October 2022. She has been under the care of Dr. Hathaway, who referred her back for evaluation due to abnormal proteins in her blood. She has a history of MGUS, which has been monitored for potential progression to multiple myeloma. In 2022, she underwent stent placement by Dr. Perry and has been followed by cardiology, including Dr. Guy and GLORIA Rosado. She also has a history of a thyroid nodule, which was biopsied but the sample was insufficient. She was advised to have regular follow-ups every three months. Recent History: Patient reports generalized edema, wheezing at night, and fatigue. She is currently on an inhaler (Anoro Ellipta) but is unsure of its effectiveness. She notes significant swelling in her legs and feet, with associated itching and burning at night. She has been taking furosemide but reports inadequate diuresis and is awaiting a new prescription for a different diuretic. She also experiences joint pain in her knees, back, and ankles. She reports a recent weight gain of approximately 4 pounds, which she attributes to fluid retention. She denies any unintentional weight loss. She also reports episodes of reflux and has not been consistently taking her prescribed proton pump inhibitor. Patient expresses frustration with her current primary care physician, and is considering changing providers. She is also concerned about her 's health, as he has had multiple recent ER visits for anxiety-related symptoms. MEDICATIONS: Current Outpatient Medications Medication Sig carvedilol (COREG) 12.5 mg tablet TAKE 1 TABLET BY MOUTH TWICE A DAY WITH FOOD/MEAL clopidogrel (PLAVIX) 75 mg tablet TAKE 8 TABLETS BY MOUTH ON DAY ONE THEN TAKE 1 TABLET BY MOUTH DAILY furosemide (LASIX) 20 mg tablet Take 20 mg by mouth two times a day. potassium chloride (K-TAB) 10 mEq tablet Take 10 mEq by mouth two times a day. irbesartan (AVAPRO) 150 mg tablet rOPINIRole (REQUIP) [...] Cigarettes Smokeless tobacco: Never Vaping Use Vaping status: Never Used Substance Use Topics Alcohol use: Not Currently Drug use: Never REVIEW OF SYSTEMS: General: No weight loss, malaise or fevers. Fatigue. HEENT: Negative for frequent or significant headaches. No changes in hearing or vision, no nose bleeds or other nasal problems Respiratory: Negative for cough, wheezing or shortness of breath. Cardiovascular: Negative for chest pain or palpitations. Positive edema. GI: Negative for abdominal discomfort, blood in stools or black stools or change in bowel habits : No history of dysuria, frequency or incontinence Musculoskeletal: Negative for: joint pain or swelling, back pain and muscle pain Skin: Negative for lesions, rash, and itching. Hematology/Lymphology: Negative for prolonged bleeding, bruising easily or swollen nodes. Neuro: No history of headaches, syncope, paralysis, seizures or tremors PHYSICAL EXAM: BP 178/68 Pulse 66 Temp 36 C (96.8 F) (Temporal) Resp 18 Ht 166.4 cm (5' 5.51 ) Wt 91.8 kg (202 lb 6.1 oz) SpO2 95% BMI 33.15 kg/m ECOG 1 Exam limited to gross visualization where appropriate. Gen.: This is an age-appropriate patient in no acute distress. Head: Appears atraumatic with no visible lesions. Eyes: Pupils equally round and reactive to light, extraocular muscles are intact. Neck: Supple. Respiratory: Appears to be respiring comfortably. Neurologic: Nonfocal to gross visualization. Alert and oriented 3. Psychiatric: No evidence of inappropriate anxiety or depression. Skin: Visible areas of skin without rash, lesions, wounds or petechiae. RADIOLOGIC DATA: 08/28/2022 CT chest IMPRESSION: 1. [...] acute diverticulitis. LABS: Hemoglobin (g/dL) Date Value 07/08/2025 9.0 11/15/2021 11.5 Hematocrit (%) Date Value 07/08/2025 27.8 11/15/2021 36.1 WBC (k/uL) Date Value 07/08/2025 5.46 11/15/2021 5.96 Platelet Count (k/uL) Date Value 07/08/2025 275 11/15/2021 274 ASSESSMENT/PLAN: 1. Abnormal SPEP - [...] myeloma or other primary bone marrow disorder. (Previous note) She recently saw her PCP, Dr. Hathaway for a wellness exam, who has referred patient back to us for re-evaluation. Most recent labs drawn on 06/23/2025. (Scanned) IgM elevated, M-protein 0.2, and [place]/Lambda ration 10.59. Will repeat labs today. Hemoglobin has decreased and creatinine has increased. Once labs results will contact patients daughter with next plan. Tentatively scheduled follow up in 3 months, seeing that we hadn't seen her since 2022. Rheumatologic evaluation will be considered based on [...] shortness of breath and was hospitalized at [facility] and treated for suspected pneumonia. Apparently it was later felt she had heart disease, and cardiac catheterization revealed severe coronary artery disease. She subsequently underwent stent placement at [facility]. April 2023 she developed severe shortness of breath and was hospitalized at [facility] 05/17/2023 with CHF. She improved with diuresis but has ongoing dyspnea. Continue management per PCP/cardiology. 6. Anemia - ICD9: 285.9, ICD10: D64.9 Labs April 2023 revealed normocytic anemia with a hemoglobin approximately 9. Differential diagnosis includes iron deficiency, B12 deficiency, folate deficiency, anemia chronic disease , or a bone marrow disorder. Will check additional labs and further evaluate as indicated. Paolo Casillas APRN.DANIELA CC: Dr. Orlando Cortez spent a total of 40 minutes on the date of the service which included preparing to see the patient, [id number] patient care, completing clinical documentation, obtaining and/or reviewing separately obtained history, performing a medically appropriate examination, counseling and educating the patient/family/caregiver, ordering medications, tests, or procedures, independently interpreting results (not separately reported), and communicating results to the patient/family/caregiver. documented in this encounter [facility] 07-06-2025 Telephone encounter Note Patient coming Sunday07/08/25 for follow up labs. Please add lab orders. Thanks. Loree Rosado MA [facility] 05-19-2025 Evaluation note Diagnosis Onset Date Resolution Acute bronchitis due to other specified organisms noneactive April 292024 3:17pm Acute exacerbation of chronic obstructive airways disease noneactive May 19, 2025 3:17pm ASHD (arteriosclerotic heart disease) acute June 19 9:23am Chronic bronchitis acute June 19, 2025 9:23am Chronic kidney disease acute [facility] 2024 9:23am Chronic venous insufficiency acute June 19 9:23am Essential hypertension acute [facility] 2024 9:23am OMAR (generalized anxiety disorder) acute June 19 9:23am Gastroesophageal reflux disease with esophagitis without hemorrhage acute June 19, 2025 9:23am Hypercholesterolemia acute 2024 9:23am 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 June 19, 2025 9:23am Obesity acute June 19, 025 9:23am Screening mammogram for breast cancer acute June 19 9:23am Subclinical hypothyroidism acute June 19, 2025 9:23am Thyroid nodule acute May 9:23am Acute on chronic heart failure with preserved ejection fraction (HFpEF) noneactive June 19, 2025 9:23am Medicare annual wellness visit, subsequent noneactive June 19, 025 9:23am [facility] Work Phone: 1(282) 589-448507-22-2025 Evaluation note* Diagnosis Onset Date Resolution Status Admit Date Acute bronchitis due to othe r specified organisms noneactive May 19, 025 3:17pm Acute exacerbation of chroni c obstructive airways disease noneactive May 19, 2025 3:17pm Anemia acute June 19, 025 9:23am ASHD (arteriosclerotic heart disease) acute June 19 9:23am Chronic bronchitis acute June 19, 2025 9:23am Chronic kidney disease acute [facility] 2024 9:23am Chronic venous insufficiency acute June 19, 2025 9:23am Essential hypertension acute [facility] 2024 9:23am MOAR (generalized anxiety disorder) acute June 19 9:23am Gastroesophageal reflux dise ase with esophagitis without hemorrhage acute June 19 9:23am Hypercholesterolemia acute 2024 9:23am MGUS (monoclonal gammopathy of unknown [...] vis it, subsequent noneactive June 19 9:23am Anemia acute June 3:32pm ASHD (arteriosclerotic heart disease) acute July 21, 2025 3:32pm Chronic bronchitis acute Septem 2024 3:32pm Chronic kidney disease acute Se ptember 2024 3:32pm Chronic venous insufficiency acute July 21, 2025 3:32pm Essential hypertension acute Se ptember 2024 3:32pm OMAR (generalized anxiety disorder) acute July 21, 2025 3:32pm 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 July 21, 2025 3:32pm Obesity acute June 3:32pm Screening mammogram for [facility] cancer acute July 21, 2025 3:32pm Subclinical hypothyroidism acute July 21, 2025 3:32pm Acute on chronic heart failu re with preserved ejection fraction (HFpEF) noneactive July 21, 2025 3:32pm [facility] Work Phone: 1(557) 166-742207-22-2025 Evaluation note* Diagnosis Onset Date Resolution Status Admit Date Acute bronchitis due to othe r specified organisms noneactive May 19, 025 3:17pm Acute exacerbation of chroni c obstructive airways disease noneactive May 19, 2025 3:17pm Anemia acute June 19, 2 025 9:23am ASHD (arteriosclerotic heart disease) acute June 19 9:23am Chronic bronchitis acute June 19, 2025 9:23am Chronic kidney disease acute [facility] 2024 9:23am Chronic venous insufficiency acute June 19, 2025 9:23am Essential hypertension acute [place] 2024 9:23am OMAR (generalized anxiety disorder) acute June 19 9:23am Gastroesophageal reflux dise ase with esophagitis without hemorrhage acute June 19 9:23am Hypercholesterolemia acute Aug2024 9:23am 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 May 9:23am Obesity acute June 19, 9:23am Screening mammogram for [facility] cancer acute June 19 9:23am Subclinical hypothyroidism acute June 19, 2025 9:23am Thyroid nodule acute May 9:23am Acute on chronic heart failu re with preserved ejection fraction (HFpEF) noneactive June 19 9:23am Medicare annual wellness vis it, subsequent noneactive June 19 9:23am ASHD (arteriosclerotic heart disease) acute July 21, 2025 3:32pm Chronic kidney disease acute Se pt2024 3:32pm Chronic venous insufficiency acute July 21, 2025 3:32pm 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 July 21, 2025 3:32pm Acute on chronic heart failu re with preserved ejection fraction (HFpEF) noneactive July 21, 2025 3:32pm [facility] Work Phone: 1(825) 888-956405-16-2025 Evaluation note* Diagnosis Onset Date Resolution Status [...] March 19, 2025 11:21am Essential hypertension acute 2024 11:21am Hypercholesterolemia acute March 19, 2025 11:21am Obesity acute March 19, 2025 11:21am Subclinical hypothyroidism acute March 19, 2025 11:21am Thyroid nodule acute March 19, 2025 11:21am Acute on chronic heart failu re with preserved ejection fraction (HFpEF) noneactive March 19, 2025 11:21am [facility] Work Phone: 1([phone]) 912-760304-15-2025 History of Present illness Narrative* Reyna Esparza MD - 02/25/2025 9:00 AM EDT Subjective Patient ID: Lashaun Joaquin is a 84 y.o. female who presents for Thyroid Nodule (Follow ultrasound [facility] 02/10/25) US shows an 11mm nodule that is unchanged and mult subcentimeter nodules. No family history on file. Active Ambulatory Problems Diagnosis Date Noted Dry eyes 04/28/2024 Epiretinal membrane (ERM) of left eye 04/28/2024 Blepharitis of upper and lower eyelids of both eyes 04/28/2024 Abnormal cardiovascular stress test 11/24/2024 Adrenal nodule ([facility]/HCC) 11/24/2024 Anemia 11/24/2024 ASHD (arteriosclerotic heart disease) ([facility]) 10/17/2023 Atrophic vaginitis 11/24/2024 BMI 33.0-33.9,adult 03/05/2024 Cervical spondylosis with radiculopathy 11/24/2024 Chronic bronchitis (CMS/HCC) 11/24/2024 Chronic heart failure with preserved ejection fraction (HFpEF) ([facility]) 11/24/2024 Chronic obstructive pulmonary disease with (acute) exacerbation ([facility]) 11/24/2024 Chronic venous insufficiency 11/24/2024 COVID 10/17/2023 Elevated serum immunoglobulin free light chain level 11/24/2024 Essential hypertension (CMS/HCC) 10/17/2023 Flash pulmonary edema ([facility]/HCC) 11/24/2024 Former smoker 10/17/2023 OMAR (generalized anxiety disorder) ([facility]/HCC) 11/24/2024 Gastroesophageal reflux disease with esophagitis without hemorrhage 11/24/2024 Heart failure 11/24/2024 Palpitations 01/12/2025 Resolved Ambulatory Problems Diagnosis Date Noted No Resolved Ambulatory Problems Past Medical History: Diagnosis Date Arthritis Cataract Congestive heart failure (CHF) (CMS/HCC) Coronary artery disease (CMS/HCC) GERD (gastroesophageal reflux disease) Hypercholesteremia (CMS/HCC) Hypertension (CMS/HCC) Peripheral neuropathy Past Surgical History: Procedure Laterality [...] then annually if stable documented in [facility]Mer[id number] Miscellaneous Notes* Telephone Encounter - Loree Rosado MA - 07/06/2025 9:31 AM EDT Patient coming Sunday07/08/25 for follow up labs. Please add lab orders. Thanks. Loree Rosado MA [facility] Evaluation note* Diagnosis Onset Date Resolution Status Admit Date Chronic kidney disease acute [facility] 2024 9:51am Nocturnal leg cramps acute [facility] 2024 9:51am Right knee pain [...] 2025 1 1:21am Chronic kidney disease acute [place] 2024 11:21am Chronic venous insufficiency acute March 19, 2025 11:21am Essential hypertension acute [place] 2024 11:21am Subclinical hypothyroidism acute March 19, 2025 11:21am Thyroid nodule acute March 19, 2025 11:21am [facility] Work Phone: 1([phone]) 121-716703-17-2025 Evaluation + Plan note* Assessment & Plan Note - CINTIA Gallego - 01/12/2025 3:48 PM EDTAssociated Problem(s): Cardiac and Vasculature January 2024 TTE LVEF greater than 55% Biatrial enlargement mild [facility] Work Phone: 1(909) 726-547203-17-2025 Miscellaneous Notes* Assessment & Plan Note - [...] heart disease) March 09, 2023 Mid/proximal RCA PCI/[facility] 4x15mm & 4x18mm Proximal diagonal PCI/[facility] 2.5 x 18 mm LAD 10% Circumflex [...] hypertension Optimal in office documented in this [facility] Work Phone: 1(946) 120-506303-17-2025 Evaluation + Plan note* Assessment & Plan Note - CINTIA Gallego - 01/12/2025 3:47 PM EDTAssociated Problem(s): Hyperlipidemia High intensity statin January 2024 HDL 42, cholesterol 158 [facility] Work Phone: 1(341) 340-193503-17-2025 Evaluation + Plan note* Assessment & Plan Note - CINTIA Gallego - 01/12/2025 3:47 PM EDTAssociated Problem(s): ASHD (arteriosclerotic heart disease) March 09, 2023 Mid/proximal RCA PCI/[facility] 4x15mm & 4x18mm Proximal diagonal PCI/[place] 2.5 x 18 mm LAD 10% Circumflex normal LVEF 65% February 2024 MPI ischemia, EF 88% Current daily activity at 4 METS without concerning symptoms [facility] Work Phone: 1([phone]) 337-680203-17-2025 Evaluation + Plan note* Assessment & Plan Note - CINTIA Gallego - 01/12/2025 3:46 PM EDTAssociated Problem(s): Palpitations Reports fairly daily episodes of hearing my heart thumping going into my ears No prior documented A-fib or arrhythmia. Was taken off of carvedilol January 2024 hospitalization due to bradycardia [facility] Work Phone: [phone]) 708-397503-17-2025 Evaluation + Plan note* Assessment & Plan Note - CINTIA Gallego - 01/12/2025 3:46 PM EDTAssociated Problem(s): Essential hypertension Optimal in office [facility] Work Phone: [phone]) 247-577003-17-2025 History of Present illness Narrative* CINTIA Gallego [...] heart disease) March 09, 2023 Mid/proximal RCA PCI/[facility] 4x15mm & 4x18mm Proximal diagonal PCI/[facility] 2.5 x 18 mm LAD 10% Circumflex [...] Echo (RODGERS, diastolic dysfunction) Holden Rosado MSN, FARMWORKER [employer]ARM-OPERATING ENGINEER APPRENTICE, PMHNP-BC [facility] [place], [place] Please excuse any errors in grammar or translation related to this dictation. Voice recognition software was utilized to prepare this document. documented in [facility] Work Phone: [phone]) 885-205703-17-2025 Instructions* Patient Instructions* CINTIA Gallego - 01/12/2025 [...] Echo (RODGERS, diastolic dysfunction) documented [facility]: [phone]) 235-462001-28-2025 History of Present illness Narrative* Reyna Esparza MD - 11/25/2024 2:00 PM EST Subjective Patient ID: Lashaun Joaquin is a 84 y.o. female who presents for Thyroid Nodule Pt reports she had a thyroid US after being found to be mildly hypothyroid. US shows an 11mm mixed thyroid nodule. FNA performed that was [place] 1. No family H/O thyroid CA. No radiation exposure. Review of Systems All other systems reviewed and are negative. No family history on file. Active Ambulatory Problems Diagnosis Date Noted Dry eyes 04/28/2024 Epiretinal membrane (ERM) of left eye 04/28/2024 Blepharitis of upper and lower eyelids of both eyes 04/28/2024 Abnormal cardiovascular stress test 11/24/2024 Adrenal nodule ([facility]) 11/24/2024 Anemia 11/24/2024 ASHD (arteriosclerotic heart disease) ([facility]) 10/17/2023 Atrophic vaginitis 11/24/2024 BMI 33.0-33.9,adult 03/05/2024 Cervical spondylosis with radiculopathy 11/24/2024 Chronic bronchitis ([facility]) 11/24/2024 Chronic heart failure with preserved ejection fraction (HFpEF) ([facility]) 11/24/2024 Chronic obstructive pulmonary disease with (acute) exacerbation ([facility]) 11/24/2024 Chronic venous insufficiency 11/24/2024 COVID 10/17/2023 Elevated serum immunoglobulin free light chain level 11/24/2024 Essential hypertension ([facility]) 10/17/2023 Flash pulmonary edema ([facility]) 11/24/2024 Former smoker 10/17/2023 OMAR (generalized anxiety disorder) ([facility]) 11/24/2024 Gastroesophageal reflux disease with esophagitis without hemorrhage 11/24/2024 Heart failure ([facility]) 11/24/2024 Resolved Ambulatory Problems Diagnosis Date Noted No Resolved Ambulatory Problems Past Medical History: Diagnosis Date Arthritis Cataract Congestive heart failure (CHF) ([facility]) Coronary artery disease ([facility]) GERD (gastroesophageal reflux disease) Hypercholesteremia ([facility]) Hypertension ([facility]) Peripheral neuropathy Past Surgical History: Procedure Laterality [...] starting in late December [id number] Chief complaint+Reason for visit Narrative* Chief Complaint [...] 10:20am Thyroid nodule December 16, 2024 10:20am [facility] Work Phone: 1(215) 791-435301-20-2025 Chief complaint+Reason for visit Narrative * Chief [...] knee pain January 22, 2025 9:5 1am [facility] Work Phone: 1([phone]) 419-914401-20-2025 Evaluation note* Diagnosis Onset Date Resolution Status Admit Date Thyroid nodule acute November 172024 9:45am ASHD (arteriosclerotic heart disease) acute December 16 025 10:20am Chronic bronchitis acute Februa 2024 10:20am Chronic heart failure with preserved ejection fraction (HFpEF) acute December 16 025 10:20am Chronic kidney disease acute Fe bruary 2024 10:20am Chronic venous insufficiency acute December 16, 2024 10:20am Essential hypertension acute Fe bruary 2024 10:20am Subclinical hypothyroidism acute December 16, 2024 10:20am Thyroid nodule acute November 292024 10:20am [facility] Work Phone: 1([phone]) 534-317201-20-2025 Evaluation note* Diagnosis Onset Date Resolution Status Admit Date Thyroid nodule acute November 172024 9:45am ASHD (arteriosclerotic heart disease) acute December 16 025 10:20am Chronic bronchitis acute Februa 2024 10:20am Chronic heart failure with preserved ejection fraction (HFpEF) acute December 16 025 10:20am Chronic kidney disease acute Fe bruary 2024 10:20am Chronic venous insufficiency acute December 16, 2024 10:20am Essential hypertension acute Fe bruary 2024 10:20am Subclinical hypothyroidism acute December 16, 2024 10:20am Thyroid nodule acute November 292024 10:20am Chronic kidney disease acute [facility] 2024 9:51am Nocturnal leg cramps acute Kofi h 2024 9:51am Right knee pain acute December 9:51am [facility] Work Phone: 1([phone]) 910-344512-11-2024 History of Present illness Narrative* Edinson Perry, [...] diastolic heart failure. She was hospitalized at [facility] we were not involved in this. Her [...] Scribe Attestation By signing my name below, I Luz Mendez LPN attest that this documentation [...] exam, discussion and plan. [facility] Work Phone: 1([phone]) 205-794012-11-2024 Instructions* Patient Instructions* Racquel Olivera LPN - [...] Provided instructions on exercise. documented in [facility]The [facility] Work Phone: [phone]) 717-268311-14-2024 Evaluation note* Diagnosis Onset Date Resolution Status Admit Date Anemia acute September 11, 2024 10:16am ASHD (arteriosclerotic heart disease) acute September 11 10:16am Chronic bronchitis acute Novemb er 2023 10:16am Chronic heart failure with preserved ejection fraction (HFpEF) acute September 11 024 10:16am Chronic venous insufficiency acute September 11, 2024 10:16am Essential hypertension acute No vember 2023 10:16am OMAR (generalized anxiety disorder) a cute September 11, 2024 10:16am Hypercholesterolemia acute Nove mber 2023 10:16am Subclinical hypothyroidism acute September 11, 2024 10:16am [facility] Work Phone: 1(638) 380-847911-14-2024 Evaluation note* Diagnosis Onset Date Resolution Status [...] September 11, 2024 10:16am Hypercholesterolemia acute Nov mb2023 10:16am Subclinical hypothyroidism acute September 11, 2024 10:16am Thyroid nodule acute November 172024 9:45am [facility] Work Phone: 1([phone]) 914-792206-25-2024 Evaluation + Plan note* Assessment & Plan Note - CINTIA Gallego - 04/22/2024 11:58 AM EDTAssociated Problem(s): BMI 32.0-32.9,adult Reviewed the merits of healthy lifestyle choices on overall cardiovascular health. [facility] Work Phone: 1([phone]) 306-276106-25-2024 Evaluation + Plan note* Assessment & Plan Note - CINTIA Gallego - 04/22/2024 11:58 AM EDTAssociated Problem(s): Hyperlipidemia High intensity statin January 2024 HDL 42, cholesterol 158 [facility] Work Phone: 1([phone] 517-455706-25-2024 Evaluation + Plan note* Assessment & Plan Note - CINTIA Gallego - 04/22/2024 11:58 AM EDTAssociated Problem(s): Essential hypertension Optimal in the office [facility] Work Phone: [phone] Evaluation + Plan note* Assessment & Plan Note - CINTIA Gallego - 04/22/2024 11:58 AM EDTAssociated Problem(s): ASHD (arteriosclerotic heart disease) March 09, 2023 Mid/proximal RCA PCI/[place] [facility] 4x15mm & 4x18mm Proximal diagonal PCI/[place] 2.5 x 18 mm LAD 10% Circumflex normal LVEF 65% February 2024 MPI ischemia, EF 88% Current daily activity at 4 METS without concerning symptoms [facility] Work Phone: [phone]) 178-666606-25-2024 Miscellaneous Notes* Assessment & Plan Note - [...] METS without concerning symptoms documented in this [facility] Work Phone: 1([phone]) 248-742006-24-2024 History of Present illness Narrative* CINTIA Gallego [...] heart disease) March 09, 2023 Mid/proximal RCA PCI/[facility] 4x15mm & 4x18mm Proximal diagonal PCI/[facility] 2.5 x 18 mm LAD 10% Circumflex [...] Dr. Perry 6 months Holden Rosado MSN, FARMWORKER [employer]ARM-OPERATING ENGINEER APPRENTICE, PMHNP-[facility] Please excuse any errors in grammar or translation related to this dictation. Voice recognition software was utilized to prepare this document. documented in this [facility] Work Phone: [phone]) 550-131806-24-2024 Instructions* Patient Instructions* CINTIA Gallego - 04/21/2024 [...] Dr. Perry 6 months documented in this [facility]The [facility] Work Phone: [phone] 318-481305-09-2024 Evaluation + Plan note* Assessment & Plan Note - CINTIA Gallego - 03/06/2024 10:42 AM EDTAssociated Problem(s): BMI 32.0-32.9,adult Reviewed the merits of healthy lifestyle choices on overall cardiovascular health. [facility] Work Phone: [phone]) 951-491505-09-2024 Evaluation + Plan note* Assessment & Plan Note - CINTIA Gallego - 03/06/2024 10:42 AM EDTAssociated Problem(s): Hyperlipidemia High intensity statin January 2024 HDL 42, cholesterol 158 [facility] Work Phone: [phone] Miscellaneous Notes* Assessment & Plan Note - CNITIA Gallego - 03/06/2024 10:42 AM EDTAssociated Problem(s): [...] Circumflex normal LVEF 65% documented in this [facility] Work Phone: [phone]) 174-133305-09-2024 Evaluation + Plan note* Assessment & Plan Note - CINTIA Gallego - 03/06/2024 10:41 AM EDTAssociated Problem(s): Essential hypertension Optimal in office [facility] Work Phone: [phone] 387-500805-09-2024 Evaluation + Plan note* Assessment & Plan Note - CINTIA Gallego - 03/06/2024 10:41 AM EDTAssociated Problem(s): ASHD (arteriosclerotic heart disease) March 09, 2023 Mid/proximal RCA PCI/[facility] 4x15mm & 4x18mm Proximal diagonal PCI/[place] 2.5 x 18 mm LAD 10% Circumflex normal LVEF 65% [facility] Work Phone: [phone] 330-842205-08-2024 History of Present illness Narrative* CINTIA Gallego - 03/05/2024 11:30 AM EDT Chief Complaint I am just not feeling good Reason for Visit Patient presents to the office today for outpatient follow-up for hospital follow-up. Last evaluated in clinic by Dr. Perry September 2023. January 2024: Hospitalized at [facility] due to accelerated hypertension and bradycardia. [...] RCA PCI/[place] 4x15mm & 4x18mm Proximal diagonal PCI/[place] 2.5 x 18 mm LAD 10% Circumflex [...] contact the office if new symptoms arise. 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 Voice recognition software was utilized to prepare this document. documented in this [facility] Work Phone: [phone]) 702-464005-08-2024 Instructions* Patient Instructions* CINTIA Gallego - 03/05/2024 [...] contact the office if new symptoms arise. 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 [facility] Other 11-29-2023 Evaluation note* Encounter Date Diagnosis Assessment Notes Treatment Notes Treatment Clinical Notes Aug, Chronic venous insufficiency (ICD-10 - I87.2) [facility] Other 11-24-2023 Evaluation note* Encounter Date Diagnosis Assessment Notes Treatment Notes Treatment Clinical Notes Aug, Subacute cough (ICD-10 - R05.2) Aug, Dyspnea on exertion (ICD-10 - R06.09) [facility] Other 11-20-2023 Evaluation note* Encounter Date Diagnosis Assessment Notes Treatment Notes Treatment Clinical Notes Aug, Chronic venous insufficiency (ICD-10 - I87.2) [facility] Other 11-16-2023 Evaluation note* Encounter Date Diagnosis Assessment Notes Treatment Notes Treatment Clinical Notes Aug, Chronic venous insufficiency (ICD-10 - I87.2) [facility] Other 11-14-2023 Evaluation note* Encounter Date Diagnosis [...] using EDEL as needed to mobilize secretions. [facility] Other 10-19-2023 Evaluation note* Encounter Date Diagnosis Assessment Notes Treatment Notes Treatment Clinical Notes Jul, Aphthous ulcer (ICD-10 - K12.0) [facility] Other 09-20-2023 Evaluation note* Encounter Date Diagnosis Assessment Notes Treatment Notes Treatment Clinical Notes Jun, Dysuria (ICD-10 - R30.0) [facility] Other 09-19-2023 Evaluation note* Encounter Date Diagnosis Assessment Notes Treatment Notes Treatment Clinical Notes Jun, Dysuria (ICD-10 - R30.0) [facility] Other 08-28-2023 Evaluation note* Encounter Date Diagnosis Assessment Notes Treatment Notes Treatment Clinical Notes May, Chronic venous insufficiency (ICD-10 - I87.2) [facility] Other 08-24-2023 Evaluation note* Encounter Date Diagnosis Assessment Notes Treatment Notes Treatment Clinical Notes May, Primary insomnia (ICD-10 - F51.01) [facility] Other 08-21-2023 Evaluation note* Encounter Date Diagnosis Assessment Notes Treatment Notes Treatment Clinical Notes May, Diastolic hypertension (ICD-10 - I10) [facility] Other 08-18-2023 Evaluation note* Encounter Date Diagnosis Assessment Notes Treatment Notes Treatment Clinical Notes May, Primary hypertension (ICD-10 - I10) [facility] Other 08-18-2023 Evaluation note* Encounter Date Diagnosis Assessment Notes Treatment Notes Treatment Clinical Notes May, Diastolic hypertension (ICD-10 - I10) [facility] Other 08-11-2023 Evaluation note* Encounter Date Diagnosis [...] and feet daily for blisters and ulcerations. [facility] Other 08-09-2023 Miscellaneous Notes* Telephone Encounter - Cristy Manzanares RN - 06/06/2023 2:11 PM EDT Pt aware of BR message and agrees to POC. She states she feels good and will see us back in August. Cristy Manzanares RN * Telephone Encounter - Cristy Manzanares RN - 06/06/2023 2:11 PM EDT [...] can further discuss then. documented in [facility] encounterC[facility] History of Present illness Narrative* Luis [...] shortness of breath and was hospitalized at [facility] and treated for suspected pneumonia. Apparently it was later felt she had heart disease, and cardiac catheterization revealed severe coronary artery disease. She dumont bsequently underwent stent placement at [facility]. Apparently her shortness [...] shortness of breath [facility]. Apparently it was later felt she had heart disease, and cardiac catheterization revealed severe coronary artery disease. She subsequently underwent stent placement at [facility]. April 2023 she developed severe shortness of breath and was hospitalized at [facility] 05/17/2023with CHF. She [...] MD CC: Dr. Perry documented in this encounterCleveland [facility]07-28-2023 Evaluation note* Encounter Date Diagnosis Assessment [...] dependence, cigarettes, in remission (ICD-10 - F17.211) [facility] Other 07-21-2023 Discharge summary Author Lj Ryan [facility] May 18, 2023 11:44am Note Date/Time May 18, 2023 11:4 4am [facility] [address] [place] [address] Discharge Summary Signed Patient: Lashaun Joaquin MR#: [id number] : 1940 Acct:[id number] Age/Sex: 82 / F Adm Date: 3 Loc: Room: [address] [place] [address]: Lj Ryan DO Copies to: [...] % (Auto) 73.6, Lymph % (Auto) 15.1, [place] % (Auto) 8.7, Eos % (Auto) 1.9, Baso % (Auto) 0.7, Nucleat RBC Rel Count 0.1, Neut # (Auto) 4.4, Lymph # (Auto) 0.9 L, [place] # (Auto) 0.5, Eos # (Auto) 0.1, [...] signed by Lj Ryan DO> 05/18/23 1144 [facility] Work Phone: 1([phone]) 645-105707-20-2023 History and physical note Author Lj Ryan [facility] May 17, 2023 3:56pm Note Date/Time May 17, 2023 3:49 pm [facility] [address] [place] [address] Hospitalist H&P Signed Patient: Lashaun Joaquin MR#: [id number] : 1940 Acct:[id number] Age/Sex: 82 / F Adm Date: 3 Loc: Room: [address] [place] [address] Type: ADM INOo Attending Dr: Lj Ryan [...] negative unless noted below or in HPI [facility] Medical History (Updated 05/17/23 @ 15:50 [...] 18 186/78 H 95 Nasal Cannula 2 07/20/23 10:23 05/17/23 15:03 05/17/23 15:03 05/17/23 15:03 [...] % (Auto) 9.3 % (.) 05/17/23 10:25 [place] % (Auto) 5.5 % (.) 05/17/23 10:25 Eos % (Auto) 0.5 % (.) 05/17/23 10:25 Baso % (Auto) 0.5 % (.) 05/17/23 10:25 Nucleat RBC Rel Count 0.0 /100 WBC (0-0.5) 05/17/23 10:25 Neut # (Auto) 8.6 x10E3/uL (1.8-7.7) H 05/17/23 10:25 Lymph # (Auto) 1.0 x10E3/uL (1.00-4.8) 05/17/23 10:25 [place] # (Auto) 0.6 x10E3/uL (0.0-0.8) 05/17/23 10:25 [...] 1 Documented By: Lj Ryan DO 05/17/23 1547 Signed By: <Electronically signed by Lj Ryan DO> 05/17/23 2237 [facility] Work Phone: [phone]) [phone] Evaluation note* Encounter Date Diagnosis Assessment Notes [...] [BMI ] 33.0-33.9, adult (ICD-10 - Z68.33) [facility] Other 07-12-2023 Evaluation note* Encounter Date Diagnosis [...] dependence, cigarettes, in remission (ICD-10 - F17.211) [facility] Other 06-29-2023 Evaluation note* Encounter Date Diagnosis Assessment Notes Treatment Notes Treatment Clinical Notes Mar, Paronychia of finger of right hand (ICD-10 - L03.011) [facility] Other 06-29-2023 Evaluation note* Encounter Date Diagnosis [...] healthy diet. Mar, Paresthesias (ICD-10 - R20.2) [facility] Other 06-21-2023 Evaluation note* Encounter Date Diagnosis [...] post PCI/stent placement. Continue for 12 months [facility] Other 06-21-2023 Evaluation note* Encounter Date Diagnosis Assessment Notes Treatment Notes Treatment Clinical Notes Mar, Chronic bronchitis, simple (ICD-10 - J41.0) [facility] Other 05-30-2023 Evaluation note* Encounter Date Diagnosis Assessment Notes Treatment Notes Treatment Clinical Notes February, Paresthesias (ICD-10 - R20.2) [facility] Other 05-18-2023 Evaluation note* Encounter Date Diagnosis [...] Titrate Gabapentin and monitor for fluid retention [facility] Other 05-08-2023 Evaluation note* Encounter Date Diagnosis Assessment Notes Treatment Notes Treatment Clinical Notes February, Primary hypertension (ICD-10 - I10) February, Chronic venous insufficiency (ICD-10 - I87.2) [facility] Other 04-19-2023 Evaluation note* Encounter Date Diagnosis [...] pain, change in appetite or bowel habits [facility] Other 04-16-2023 Evaluation note* Encounter Date Diagnosis [...] chronic diastolic heart failure (ICD-10 - I50.33) [facility] Other 04-07-2023 Evaluation note* Encounter Date Diagnosis [...] Diet and exercise with continued statin therapy. [facility] Other 02-23-2023 Evaluation note* Encounter Date Diagnosis Assessment Notes Treatment Notes Treatment Clinical Notes Nov, Primary insomnia (ICD-10 - F51.01) [facility] Other 02-16-2023 Evaluation note* Encounter Date Diagnosis [...] mammogram for breast cancer (ICD-10 - Z12.31) [facility] Other 02-06-2023 History of Present illness Narrative* Luis Mckenzie MD - 12/04/2022 8:20 AM EST PATIENT NAME: Lashaun Joaquin DATE: 12/04/2022 PRIMARY CARE PHYSICIAN: Nathan Hathaway, Portions of this encounter note have been [...] PCP. Luis Mckenzie MD documented in this encounterC[facility]01-17-[facility] Evaluation note* Encounter Date Diagnosis Assessment [...] or drinking prior to bedtime. Weight loss. [employer] Other 11-01-2022 Miscellaneous Notes* Telephone Encounter - Cristy Manzanares RN - 08/29/2022 1:59 PM EDT VM left with BR[facility] message. Encouraged to call with any additional questions or concerns. Cristy Manzanares RN * Telephone Encounter - Cristy Manzanares RN - 08/29/2022 1:59 PM EDT ----- Message from Luis Mckenzie MD sent at 08/29/2022 1:18 PM EDT ----- Please inform the patient that her scans are stable. Chest CT actually improved with no new suspicious findings. CT abdomen shows a stable adrenal nodule. Unless new problems develop I will see her back as scheduled in November MARBIN Freeman documented in this encounterC[facility]10-31-2022 History of Present illness Narrative* Nancy [...] 28, 2022 12:49 PM documented in this encounterC[facility]08-01-2022 History of Present illness Narrative* uLis Mckenzie MD - 05/29/2022 7:32 AM EDT [...] PCP. Luis Mckenzie MD documented in [facility]Our [facility] Narrative - Reported * LASHAUN JOAQUIN is being seen for a consultation for abnormal test(s) results. * 82-year-old female seen in cardiology consultation at the request of Dr. Natalio hathaway for recent episode of respiratory distress, what sounds like congestive heart failure associated with accelerated hypertension, was admitted to [facility] briefly, diuresed approximately 14 pounds with diuretics. [...] and proceed with heart cath this Sunday -[facility] [address] DO Work Phone: Evaluation note* Diagnosis Abnormal SPEP- Primary Other nonspecific findings on examination of blood Neuropathy - (NOS) 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 Lung nodules Other nonspecific abnormal finding of lung field documented in this encounter [facility] note* Diagnosis Abnormal SPEP- Primary Other nonspecific findings on examination of blood Neuropathy - (NOS) Lung nodules Other nonspecific abnormal finding of lung field documented in this encounter [facility] Hospital[facility] noteNo InformationNortCheggin Other Evaluation noteNo assessment information available [facility] Work Phone: evaluation note* Diagnosis Onset Date Resolution Status Flash pulmonary edema acute Heart failure acute Hypertension acute Hypertensive emergency acute Hypoxia acute [facility] Work Phone: Evaluation note* Diagnosis Abnormal SPEP- Primary Other nonspecific findings on examination of blood Anemia, unspecified type Neuropathy - (NOS) Heart disease Heart disease, unspecified documented in this encounter [facility]* Diagnosis Onset Date Resolution Status ASHD (arteriosclerotic heart disease) acute Chronic diastolic heart failure acute Chronic venous insufficiency acute Elevated cholesterol acute Essential hypertension acute OMAR (generalized anxiety disorder) acute Gastroesophageal reflux dise ase with esophagitis without hemorrhage acute 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 [facility] Work Phone: Evaluation note* Diagnosis Onset Date [...] tube dysfunction acute Right otitis media acute [facility] Work Phone: Evaluation note* Diagnosis ASHD (arteriosclerotic heart disease)- Primary Coronary atherosclerosis of unspecified type of vessel, quinault or graft Essential hypertension Unspecified essential hypertension Mixed hyperlipidemia BMI 32.0-32.9,adult documented in this encounter [facility] Work Phone: Evaluation note* Diagnosis Onset Date [...] disorder) acute Subclinical hypothyroidism a [facility] Work Phone: Evaluation note* Diagnosis ASHD (arteriosclerotic heart disease) Coronary atherosclerosis of unspecified type of vessel, quinault or graft documented in this encounter [facility] Work Phone: Evaluation note* Diagnosis Onset Date Resolution Status Anemia acute ASHD (arteriosclerotic heart disease) acute Chronic diastolic heart failure acute Chronic venous insufficiency acute Essential hypertension acute OMAR (generalized anxiety disorder) acute Subclinical hypothyroidism a [facility] Work Phone: Evaluation note* Diagnosis 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 Lung nodules Other nonspecific abnormal finding of lung field documented in this encounter [facility]* Diagnosis Onset Date Resolution Status [...] Subclinical hypothyroidism acute September 11, 2024 10:16am [facility] Work Phone: Evaluation note* Diagnosis Essential hypertension- Primary Unspecified essential hypertension ASHD (arteriosclerotic heart disease) Coronary atherosclerosis of unspecified type of vessel, quinault or graft Mixed hyperlipidemia BMI 32.0-32.9,adult documented in this encounter [facility] Work Phone: Evaluation note* Diagnosis ASHD (arteriosclerotic heart disease)- Primary Coronary atherosclerosis of unspecified type of vessel, [place] or graft Essential hypertension Unspecified essential hypertension Mixed hyperlipidemia BMI 32.0-32.9,adult Essential hypertension- Primary Unspecified essential hypertension ASHD (arteriosclerotic heart disease) Coronary atherosclerosis of unspecified type of vessel, [place] or graft Mixed hyperlipidemia BMI 32.0-32.9,adult ASHD (arteriosclerotic heart disease) Coronary atherosclerosis of unspecified type of vessel, [place] or graft Essential hypertension Unspecified essential hypertension BMI 33.0-33.9,adult Former smoker Personal history of tobacco use, presenting hazards to health S/P PTCA (percutaneous transluminal coronary angioplasty) Postsurgical percutaneous transluminal coronary angioplasty status Mixed hyperlipidemia Coronary arteriosclerosis after percutaneous transluminal coronary angioplasty (PTCA) documented in this encounter [facility] Work Phone: Evaluation note* Diagnosis Thyroid nodule (CMS/HCC)- Primary Nontoxic uninodular goiter [facility] Diagnosis ASHD (arteriosclerotic heart disease)- Primary Coronary atherosclerosis of unspecified type of vessel, [place] or graft Essential hypertension Unspecified essential hypertension Mixed hyperlipidemia BMI 32.0-32.9,adult Essential hypertension- Primary Unspecified essential hypertension ASHD (arteriosclerotic heart disease) Coronary atherosclerosis of unspecified type of vessel, [place] or graft Mixed hyperlipidemia BMI 32.0-32.9,adult BMI 33.0-33.9,adult- Primary Essential hypertension Unspecified essential hypertension Palpitations ASHD (arteriosclerotic heart disease) Coronary atherosclerosis of unspecified type of vessel, [place] or graft Mixed hyperlipidemia documented in this encounter [facility] Work Phone: Evaluation note* Diagnosis Nontoxic multinodular goiter (CMS/HCC)- Primary Nontoxic multinodular goiter [facility] Diagnosis ASHD (arteriosclerotic heart disease)- Primary Coronary atherosclerosis of unspecified type of vessel, [place] or graft Essential hypertension Unspecified essential hypertension Mixed hyperlipidemia BMI 32.0-32.9,adult Essential hypertension- Primary Unspecified essential hypertension ASHD (arteriosclerotic heart disease) Coronary atherosclerosis of unspecified type of vessel, [place] or graft Mixed hyperlipidemia BMI 32.0-32.9,adult BMI 33.0-33.9,adult- Primary Essential hypertension Unspecified essential hypertension Palpitations ASHD (arteriosclerotic heart disease) Coronary atherosclerosis of unspecified type of vessel, [place] or graft Mixed hyperlipidemia Essential hypertension Unspecified essential hypertension Palpitations documented in this encounter [facility] Work Phone: Evaluation note* Diagnosis Abnormal SPEP- Primary Other nonspecific findings on examination of blood [facility] Diagnosis Abnormal SPEP- Primary Other nonspecific findings on examination of blood Primary hypertension Unspecified essential hypertension Hyperlipidemia, unspecified hyperlipidemia type Heart disease Heart disease, unspecified Edema, unspecified type 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 Anemia in other chronic diseases classified elsewhere documented in this encounter [facility] general Narrative - Reported* Type Description Date [...] History catarac sugery 2008 Surgical History Colonoscopy 2013 Hospitalization History see surgical history [place] Other History general Narrative - Reported* Type [...] diagonal br Hospitalization History see surgical history [place] Other Hospital Discharge instructions Additional Instructions Please [...] to control your blood pressure in the hospital.[facility] Work Phone: Hospital Discharge instructionsAmbulatory Orders* Referral to ENT Time Frame: 11/19/24, Location: None Selected [facility] Work Phone: Reason for referral (narrative)* Consultation (Routine) - Authorized Specialty Diagnoses / Procedures Referred By Contac t Referred To Contact Cardiology Diagnoses ASHD (arteriosclerotic heart disease) Procedures Follow Up In Cardiology Holden Rosado APRN-CNP [address] [place] [address] 2, [address] [address] Referral ID Status Reason Start Date Expiration Date V isits Requested Visits Authorized [id number] Authorized 03/05/2024 03/05/2025 1 1 * Cardiac Stress Testing (Routine) - Pending Review Specialty Diagnoses / Procedures Referred By Contac t Referred To Contact Radiology Diagnoses ASHD (arteriosclerotic heart disease) Procedures Nuclear Stress Test CHG MYOCARDIAL SPECT MULTIPLE STUDIES Holden Rosado APRN-CNP [address] [place] [address], [address] [address] Referral ID Status Reason Start Date Expiration Date V isits Requested Visits Authorized [id number] Pending Review 03/05/2024 03/05/2025 5 5 [facility] Work Phone: Reason for referral (narrative)* Consultation (Routine) - Authorized Specialty Diagnoses / Procedures Referred By Contac t Referred To Contact Cardiology Diagnoses ASHD (arteriosclerotic heart disease) Procedures Follow Up In Cardiology Holden Rosado APRN-CNP [address] [place] [address] 2, [place] [phone] Referral ID Status Reason Start Date Expiration Date V isits Requested Visits Authorized [id number] Authorized 04/21/2024 04/21/2025 1 1 [facility] Work Phone: Reason for referral (narrative)No reason for referral [facility] Work [facility]: Reason for visit Narrative* CV Imaging (Routine) - Authorized Specialty Diagnoses / Procedures Referred By Contac t Referred To Contact Cardiology Diagnoses Essential hypertension Palpitations Procedures Transthoracic Echo Complete PA ECHO TTHRC R-T 2D W/WOM-MODE COMPL SPEC&COLR D Holden Rosado, FARMWORKER BROODER FARM-OPERATING ENGINEER APPRENTICE [address] [facility] [address] [place] [address] Phone: tel: fax: Referral ID Status Reason Start Date Expiration Date Visits Requested Visits Authorized [id number] Authorized Perform Procedure 01/12/2025 01/12/2026 1 1 [facility] Work Phone: Advance Directives Documents on File Type Date Recorded Patient Children'S Librarian Expl anation Advance Directive(s) 08/01/2021 12:55 PM A dvance Directives Documents on File Type Date Recorded Patient Children'S Librarian Expl anation Advance Directive(s) 08/01/2021 12:55 PM [...] COMPUTED TOMOGRAPHY THORAX W/CONTRAST Luis Mckenzie MD [address] [place] [address] [address] [address] Ct Imaging Referral ID Status Reason Start Date Expiration Date Visits Requested Visits Authorized [id number] Authorized Auto-Generat ed Referral 05/29/2022 06/28/2023 1 1 Specialty Diagnoses / Procedures Referred By Contac t Referred To Contact CT IMAGING Diagnoses Disorder of adrenal gland (HCC) Procedures CT ABD/PEL W IVCON CT ABD & PELVIS W/CONTRAST Luis Mckenzie MD [address] [place] [address] [place] [address] Ct Imaging Referral ID Status Reason Start Date Expiration Date Visits Requested Visits Authorized [id number] Authorized Auto-Generat ed Referral 05/29/2022 06/28/2023 1 1 Specialty Diagnoses / Procedures Referred By Contac t Referred To Contact Radiology Diagnoses ASHD (arteriosclerotic heart disease) Procedures Nuclear Stress Test CHG MYOCARDIAL SPECT MULTIPLE STUDIES Alonzo Holden Petra, FARMWORKER BROODER FARM-OPERATING ENGINEER APPRENTICE [address] [facility] [address], [address] [place] [address] Referral ID Status Reason Start Date Expiration Date V isits Requested Visits Authorized [id number] Pending Review 03/05/2024 03/05/2025 5 5 Specialty Diagnoses / Procedures Referred By Contac t Referred To Contact CT IMAGING Diagnoses Lung nodules Procedures CT CHEST W IVCON DIAGNOSTIC COMPUTED TOMOGRAPHY THORAX W/CONTRAST Luis Mckenize MD [address] [place] [address] [address] [address] [place] [address] Referral ID Status Reason Start Date Expiration Date V isits Requested Visits Authorized [id number] Closed Auto-Generate d Referral 05/29/2022 06/28/2023 1 1 Specialty Diagnoses / Procedures Referred By Contac t Referred To Contact CT IMAGING Diagnoses Disorder of adrenal gland (HCC) Procedures CT ABD/PEL W IVCON CT ABD & PELVIS W/CONTRAST Luis Mckenzie MD [address] [place] [address] [address] [address] [place] [address] Referral ID Status Reason Start Date Expiration Date V isits Requested Visits Authorized [id number] Closed Auto-Generate d Referral 05/29/2022 06/28/2023 1 [...] neoplasm of lung Unknown Exposure to Agent [place] Unknown brother Malignant neoplasm of colon Unknown [...] neoplasm of lung Unknown Exposure to Agent [place] Unknown brother Malignant neoplasm of colon Unknown [...] neoplasm of lung Unknown Exposure to Agent [place] Unknown brother Malignant neoplasm of colon Unknown [...] 23am Screening mammogram for breast cancer [facility] 2024 9:23am Subclinical hypothyroidism June 19, 2025 9:23am Thyroid nodule June 19, 2025 9: 23am Acute on chronic heart failu re with preserved ejection fraction (HFpEF) June 19, 2025 9:23am Medicare annual wellness visit, subseque nt June 19, 2025 9:23am Chief Complaint Admit Date ear pain, chest burning, cough April 3:17pm wellness/3 mo f/u June 19, 2025 9: 23am leg swelling/sores July 21, 2025 3:32pm Reason for Visit Admit Date Acute bronchitis due to other specified organisms May 19, 2025 3:17pm Acute exacerbation of chronic obstructiv e airways disease May 19, 2025 3:17pm Anemia June 19, 2025 9: 23am ASHD (arteriosclerotic heart disease) [facility] 2024 9:23am Chronic bronchitis June 19, 2025 [...] 9: 23am Screening mammogram for breast cancer [facility] 2024 9:23am Subclinical hypothyroidism June 19, 2025 9:23am Thyroid nodule June 19, 2025 9: 23am Acute on chronic heart failu re with preserved ejection fraction (HFpEF) June 19, 2025 9:23am Medicare annual wellness visit, subseque nt June 19, 2025 9:23am Anemia July 21, 2025 3:32pm ASHD (arteriosclerotic heart disease) Se ptember 2024 3:32pm Chronic bronchitis July 21, 2025 3:32pm Chronic kidney disease July 21 025 3:32pm Chronic venous insufficiency June 302024 3:32pm Essential hypertension July 21 3:32pm OMAR (generalized anxiety disorder) Septe mber 2024 3:32pm 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) July 21, 2025 3:32pm Obesity July 21, 2025 3:32pm Screening mammogram for breast cancer Se ptember 2024 3:32pm Subclinical hypothyroidism June 3:32pm Acute on chronic heart failu re with preserved ejection fraction (HFpEF) July 21, 2025 3:32pm Chief Complaint Admit Date ear pain, chest [...] 2025 9: 23am ASHD (arteriosclerotic heart disease) [facility] 2024 9:23am Chronic bronchitis June 19, 2025 [...] 9: 23am Screening mammogram for breast cancer [facility] 2024 9:23am Subclinical hypothyroidism June 19, 2025 9:23am Thyroid nodule June 19, 2025 9: 23am Acute on chronic heart failu re with preserved ejection fraction (HFpEF) June 19, 2025 9:23am Medicare annual wellness visit, subseque nt June 19, 2025 9:23am ASHD (arteriosclerotic heart disease) Se ptember 2024 3:32pm Chronic kidney disease July 21 3:32pm Chronic venous insufficiency June 302024 3:32pm 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) July 21, 2025 3:32pm Acute on chronic heart failu re with preserved ejection fraction (HFpEF) July 21, 2025 3:32pm Additional Source Comments Source Comments (unrecognize d section and content) In the event this informatio n is protected by the Federal Confidentiality of Alcohol and Drug Abuse Patient Records regulations: The Federal rules restrict any use of the information to criminally investigate or prosecute any alcohol or drug abuse patient.[facility] the event this information is protected by the Federal Confidentiality of Alcohol and Drug Abuse Patient Records regulations: The Federal rules restrict any use of the information to criminally investigate or prosecute any alcohol or drug abuse patient.[facility] the event this information is protected by the Federal Confidentiality of Alcohol and Drug Abuse Patient Records regulations: The Federal rules restrict any use of the information to criminally investigate or prosecute any alcohol or drug abuse patient.[facility] the event this information is protected by the Federal Confidentiality of Alcohol and Drug Abuse Patient Records regulations: The Federal rules restrict any use of the information to criminally investigate or prosecute any alcohol or drug abuse patient.[facility] the event this information is protected by the Federal Confidentiality of Alcohol and Drug Abuse Patient Records regulations: The Federal rules restrict any use of the information to criminally investigate or prosecute any alcohol or drug abuse patient.[facility] the event this information is protected by the Federal Confidentiality of Alcohol and Drug Abuse Patient Records regulations: The Federal rules restrict any use of the information to criminally investigate or prosecute any alcohol or drug abuse patient.[facility] the event this information is protected by the Federal Confidentiality of Alcohol and Drug Abuse Patient Records regulations: The Federal rules restrict any use of the information to criminally investigate or prosecute any alcohol or drug abuse patient.[facility] the event this information is protected by the Federal Confidentiality of Alcohol and Drug Abuse Patient Records regulations: The Federal rules restrict any use of the information to criminally investigate or prosecute any alcohol or drug abuse patient.[facility] the event this information is protected by the Federal Confidentiality of Alcohol and Drug Abuse Patient Records regulations: The Federal rules restrict any use of the information to criminally investigate or prosecute any alcohol or drug abuse patient.[facility] the event this information is protected by the Federal Confidentiality of Alcohol and Drug Abuse Patient Records regulations: The Federal rules restrict any use of the information to criminally investigate or prosecute any alcohol or drug abuse patient.[facility] the event this information is protected by the Federal Confidentiality of Alcohol and Drug Abuse Patient Records regulations: The Federal rules restrict any use of the information to criminally investigate or prosecute any alcohol or drug abuse patient.[facility] Reason for Visit (unrecogniz ed section and content) Reason Comments Lab Orders Reason Comments abnormal spep Reason Comments Results Reason Comments Abnormal SPEP Reason Comments Follow-up bradycardia Specialty Diagnoses / Procedures Referred By Contac t Referred To Contact Radiology Diagnoses ASHD (arteriosclerotic heart disease) Procedures Nuclear Stress Test CHG MYOCARDIAL SPECT MULTIPLE STUDIES Holden Rosado, FARMWORKER BROODER FARM-OPERATING ENGINEER APPRENTICE [address] [place] [address], [address] [address] Referral ID Status Reason Start Date Expiration Date V isits Requested Visits Authorized [id number] Pending Review 03/05/2024 03/05/2025 5 [address] Specialty Diagnoses / Procedures Referred By Contac t Referred To Contact CT IMAGING Diagnoses Lung nodules Procedures CT CHEST W IVCON DIAGNOSTIC COMPUTED TOMOGRAPHY THORAX W/CONTRAST Luis Mckenzie MD [address] [place] [address] [place] [address] Ct Imaging [id number] Referral ID Status Reason Start Date Expiration Date V isits Requested Visits Authorized [id number] Closed Auto-Generate d Referral 05/29/2022 06/28/2023 1 1 Reason Comments Follow-up Test resultx Specialty Diagnoses / Procedures Referred By Contac t Referred To Contact Cardiology Diagnoses ASHD (arteriosclerotic heart disease) Procedures Follow Up In Cardiology Edinson Perry DO [address] [place] [address], [address] [address] Holden Rosado FARMWORKER BROODER FARM-OPERATING ENGINEER APPRENTICE [address] [facility] 2, [address] [address] Referral ID Status Reason Start Date Expiration Date V isits Requested Visits Authorized [id number] Authorized 10/17/2023 10/16/2024 1 1 Reason Comments Follow-up 6 month Specialty Diagnoses / Procedures Referred By Contac t Referred To Contact Cardiology Diagnoses ASHD (arteriosclerotic heart disease) Procedures Follow Up In Cardiology Holden Rosado, FARMWORKER BROODER FARM-OPERATING ENGINEER APPRENTICE [address] [facility] [address], [address] [address] Phone: tel: fax: Referral ID Status Reason Start Date Expiration Date V isits Requested Visits Authorized [id number] Authorized 04/21/2024 04/21/2025 1 1 Reason Onset Date Comments Med Refill 10/09/2024 Reason Comments Thyroid Nodule Specialty Diagnoses / Procedures Referred By Contac t Referred To Contact Otolaryngology Diagnoses Nontoxic single thyroid nodule (CMS/HCC) Procedures PA UNLISTED [employer]ALUATION [employer] MANAGEMENT SERVICE Nathan Hathaway MD [address] [place] [address] Phone: tel: Reyna Esparza MD [address] [facility] [address] [place] [address] Phone: tel: fax: Referral ID Status Reason Start Date Expiration Date Visits Re quested Visits Authorized [id number] Closed 11/19/2024 05/18/2025 1 1 Reason Comments Follow-up 6 months Follow up f or Coronary Artery Disease Specialty Diagnoses / Procedures Referred By Contac t Referred To Contact Cardiology Diagnoses Essential hypertension Procedures Follow Up In Cardiology Edinson Perry DO [address] [facility] 2, [address] [address] Phone: tel: fax: Holden Rosado, FARMWORKER BROODER FARM-OPERATING ENGINEER APPRENTICE [address] [facility] 2, [address] [address] Phone: tel: fax: Referral ID Status Reason Start Date Expiration Date V isits Requested Visits Authorized [id number] Authorized 10/08/2024 10/08/2025 1 1 Reason Comments Thyroid Nodule Follow ultrasound TB H 02/10/25 Reason Comments Lab Orders nt Reason Comments Orders Patient Update Reason Comments Abnormal SPEP FOLLOW UP Care Teams (unrecognized sec tion and content) [...] February 01, 2024 End: February 01, 2024 Architecture Department Chair Relationship Specialty Start Date End Date Nathan Hathaway DO PCP - General Internal Medicine 01/31/12 Architecture Department Chair Relationship Specialty Start Date End Date Nathan Hathaway DO PCP - General Internal Medicine 01/31/12 Architecture Department Chair Relationship Specialty Start Date End Date Nathan Hathawya DO PCP - General Internal Medicine 01/31/12 Architecture Department Chair Relationship Specialty Start Date End Date Nathan [...] , DO Admit Provider, Attending Provider Active Architecture Department Chair Relationship Specialty Start Date End Date Nathan Hathaway DO PCP - General Internal Medicine 01/31/12 Architecture Department Chair Relationship Specialty Start Date End Date Nathan Hathaway DO PCP - General Internal Medicine 01/31/12 Team Status: Active Member Role Status Dates Nathan Hathaway DO Primary Care Provide r, Attending Provider Active Start: February 02, 2024 Team Status: Inactive Member Role Status Dates Nathan Hathaway DO Primary Care Provider Active Start: February 13, 2024 End: February 13, 2024 Deja Pope APRN AUTO SERVICE REPRESENTATIVE-C Attending Provider Act babar Start: February 13, 2024 End: February 13, 2024 Architecture Department Chair Relationship Specialty Start Date End Date Nathan [...] February 27, 2024 End: February 27, 2024 Architecture Department Chair Relationship Specialty Start Date End Date Nathan Hathaway DO PCP - General Internal Medicine 10/03/23 Architecture Department Chair Relationship Specialty Start Date End Date Nathan Hathaway DO PCP - General Internal Medicine 10/03/23 Architecture Department Chair Relationship Specialty Start Date End Date Nathan Hathaway DO PCP - General Internal Medicine 10/03/23 Architecture Department Chair Relationship Specialty Start Date End Date Nathan Hathaway DO PCP - General Internal Medicine 10/03/23 Architecture Department Chair Relationship Specialty Start Date End Date Nathan Hathaway DO PCP - General Internal Medicine 01/31/12 Architecture Department Chair Relationship Specialty Start Date End Date Nathan Hathaway DO PCP - General Internal Medicine 10/03/23 Architecture Department Chair Relationship Specialty Start Date End Date Nathan Hathaway DO PCP - General Internal Medicine 10/03/23 Architecture Department Chair Relationship Specialty Start Date End Date Nathan Hathaway MD [address] [place] [facility] [address] PCP - External PCP Internal Medicine 06/29/23 Architecture Department Chair Relationship Specialty Start Date End Date Nathan Hathaway MD [address] [place] [facility] [address] PCP - External PCP Internal Medicine 06/29/23 Architecture Department Chair Relationship Specialty Start Date End Date Nathan Hathaway MD [address] [place] [facility] [address] PCP - External PCP Internal Medicine 06/29/23 Architecture Department Chair Relationship Specialty Start Date End Date Nathan Hathaway DO PCP - General Internal Medicine 10/03/23 Team Status: Inactive Member Role Status Dates Nathan Hathaway DO Primary Care Provide r, Attending Provider Active Start: January 22, 2025 End: January 22, 2025 Architecture Department Chair Relationship Specialty Start Date End Date Nathan Hathaway MD [address] [place] [facility] [address] PCP - General Internal Medicine 02/10/25 Architecture Department Chair Relationship Specialty Start Date End Date Nathan Hathaway DO [address] [place] [facility] [address] PCP - General Internal Medicine 02/10/25 Architecture Department Chair Relationship Specialty Start Date End Date Nathan Hathaway DO [address] [place] [facility] [address] PCP - General Internal Medicine 02/10/25 Architecture Department Chair Relationship Specialty Start Date End Date Nathan Hathaway DO [address] [place] [address] PCP - General Internal Medicine 03/09/25 Team Status: Active Member Role Status Dates [...] 2025 Team Status: Active Member Role Status Dates [...] 19, 2025 End: March 19, 2025 Nathan Hathaawy DO Attending Provider Active Sta rt: March [...] June 19, 2025 End: June 19, 2025 Architecture Department Chair Relationship Specialty Start Date End Date Nathan Hathaway DO PCP - General Internal Medicine 01/31/12 Architecture Department Chair Relationship Specialty Start Date End Date Nathan Hathaway DO PCP - General Internal Medicine 01/31/12 Architecture Department Chair Relationship Specialty Start Date End Date Nathan Hathaway DO PCP - General Internal Medicine 01/31/12 Team Status: Active Member Role Status Dates Nathan Hathaway DO Primary Care Provider Active Start: June 23, 2025 Nathan Hathaway DO Attending Provider Active Sta rt: June 23, 2025 Team Status: Active Member Role Status Dates Nathan Hathaway DO Primary Care Provider Active Start: June 24, 2025 Nathan Hathaway DO Attending Provider Active Sta rt: June 24, 2025 Team Status: Active Member Role Status Dates Nathan Hathaway DO Primary Care Provider Active Start: July 08, 2025 Fanny Bedoya APRN AUTO SERVICE REPRESENTATIVE-C Attending Provider Active Start: July 08, 2025 Team Status: Active Member Role Status Dates Nathan Hathaway DO Primary Care Provider Active Start: July 15, 2025 Valentin Leonard MD Attending Provider Active Start: July 15, 2025 Team Status: Inactive Member Role Status Dates Nathan Hathaway DO Primary Care Provider Active Start: July 21, 2025 End: July 21, 2025 Nathan Hathaway DO Attending Provider Active Sta rt: July 21, 2025 End: July 21, 2025 Team Status: Inactive Member Role Status Dates Nathan Hathaway DO Primary Care Provider Active Start: August 04, 2025 End: August 04, 2025 QUYNH LopezC Attending Provider Active Start: August 04, 2025 End: August 04, 2025 INFORMATION SOURCE (unrecogn ized section and content) DATE CREATED AUTHOR 03/08/2023 [facility] DATE CREATED AUTHOR AUTHOR'S ORGANIZ ATION 03/09/2023 [facility] DATE CREATED AUTHOR AUTHOR'S ORGANIZ ATION 03/11/2023 [facility] DATE CREATED AUTHOR AUTHOR'S ORGANIZ ATION 02/14/2025 [facility] DATE CREATED AUTHOR AUTHOR'S ORGANIZ ATION 02/26/[address] [facility] EPIC DATE CREATED AUTHOR AUTHOR'S ORGANIZ ATION 03/26/2025 [facility] DATE CREATED AUTHOR AUTHOR'S ORGANIZ ATION 03/26/2025 [facility] DATE CREATED AUTHOR AUTHOR'S ORGANIZ ATION 07/19/2025 [facility] Goals (unrecognized section and content) Goals [...] BE BASED ON THE PRIMARY CLINICAL RECORDS. [facility] [place] [facility]. provides no warranty or guarantee of the accuracy or completeness of information in this document.
[2025-08-10 06:31] LABS: Hematocrit 25.9 % (36.0-48.0); Hemoglobin 8.7 g/dL (12.0-16.0); Immature Granulocytes Abs Auto 0.03 10^3/uL (0.00-0.03); Immature Granulocytes Pct Auto 0.5 % (0.0-0.5); Lymphocytes Absolute Auto 0.9 10^3/uL (1.2-3.8); Mean Corpuscular HGB Conc 33.6 g/dL (29.9-35.2); Mean Corpuscular Hemoglobin 29.0 pg (26.7-34.0); Mean Corpuscular Volume 86.3 fL (81.0-99.0); Platelet Count 274 10^3/uL (150-450); Red Blood Count 3.00 10^6/uL (4.20-5.40); White Blood Count 6.2 10^3/uL (4.0-11.0)
[2025-08-10 06:52] LABS: Lactate/Lactic Acid 0.8 mmol/L (0.4-2.0)
[2025-08-10 06:57] LABS: Alanine Aminotransferase 19 U/L (14-59); Albumin Globulin Ratio 1.0; Albumin Level 3.1 g/dL (3.4-5.0); Alkaline Phosphatase 46 U/L (46-116); Anion Gap 16.2; Aspartate Amino Transferase 20 U/L (15-37); Blood Urea Nitrogen 34.0 mg/dL (7.0-18.0); Calcium 8.6 mg/dL (8.5-10.1); Carbon Dioxide 26.6 mmol/L (21.0-32.0); Chloride 102 mmol/L (98-107); Estimated GFR (African America 45 (>=60 mL/min/1.73m^2); Estimated GFR (Non-African Ame 37 (>=60 mL/min/1.73m^2); Globulin 3.2 g/dL; Glucose 116 mg/dL (74-106); NT Pro B Type Natriuretic Pept 1378.0 pg/mL (<=1800.0); Potassium 3.8 mmol/L (3.5-5.1); Sodium 141 mmol/L (136-145); Total Protein 6.3 g/dL (6.4-8.2)
[2025-08-10] MEDS: FUROSEMIDE 20 MG/2 ML VIAL IVP ×2 (07:04→10:12)
--- NOTE | 2025-08-10 07:31 | ED.GENADUL1 ---
HPI HPI - General Adult General Chief complaint: Shortness of Breath/Dyspnea Stated complaint: SHORTNESS OF BREATH Time Seen by Provider: 08/10/25 05:44 Source: patient Mode of arrival: Wheelchair Limitations: no limitations History of Present Illness HPI narrative: 84-year-old female presented to the emergency department and was initially seen by Dr. Singh and signed out to me after discussing the case with her thoroughly. Please see her full history and physical exam. Apparently the patient was recently taken off of her Lasix but after the patient talk to her pharmacist she took a single oral dose of Lasix. She recently started seeing a vascular surgeon about some spots on her lower extremities. Related Data Home Medications ?Medication ?Instructions ?Recorded ?Confirmed alprazolam 0.25 mg tablet 0.25 mg PO BID PRN anxiety 04/11/23 02/18/24 aspirin 81 mg tablet,delayed 81 mg PO .qod 04/11/23 02/18/24 release furosemide 20 mg tablet 20 mg PO DAILY 04/11/23 02/18/24 gabapentin 100 mg capsule 100 mg PO Q12H 04/11/23 02/18/24 temazepam 15 mg capsule (Restoril) 15 mg PO .hs PRN sleep 04/11/23 02/18/24 clopidogrel 75 mg tablet 75 mg PO DAILY 07/27/23 02/18/24 furosemide 20 mg tablet (Lasix) 20 mg PO DAILY PRN weight gain 07/28/23 02/18/24 cefdinir 300 mg capsule 300 mg PO Q12H 02/18/24 02/18/24 potassium chloride 10 mEq 10 meq PO DAILY 02/18/24 02/18/24 tablet,extended release rosuvastatin 40 mg tablet 40 mg PO DAILY 02/18/24 02/18/24 Previous Rx's ?Medication ?Instructions ?Recorded levothyroxine 75 mcg capsule 75 mcg PO DAILY #30 caps 02/19/24 nifedipine 30 mg tablet,extended 30 mg PO Q24H 30 days #30 tabs 02/20/24 release 24 hr sacubitril 24 mg-valsartan 26 mg 1 tab PO BID 30 days #60 tabs 02/20/24 tablet (Entresto) Allergies Allergy/AdvReac Type Severity Reaction Status Date / Time azithromycin Allergy Severe Verified 09/28/23 14:15 amlodipine Allergy Verified 07/27/23 02:13 doxycycline Allergy Verified 07/27/23 02:13 duloxetine (From Cymbalta) Allergy Verified 07/27/23 02:13 ondansetron (From Zofran) Allergy Verified 07/27/23 02:13 sulfamethoxazole (From Allergy Verified 07/27/23 02:13 Bactrim) tetanus and diphtheria Allergy Verified 07/27/23 02:13 toxoids trimethoprim (From Bactrim) Allergy Verified 07/27/23 02:13 codeine AdvReac Severe Anxiety Verified 09/25/23 11:07 Opioid HPI Opioid Management Most Recent Opioid Data: Last Pain Scale 0 02/19/24, 08:28 Last Pain Intensity 0 02/19/24, 08:28 Last ORT Total Score 0 02/18/24, 18:30 Last ORT Risk Category Low Risk 02/18/24, 18:30 [facility] Medical History (Updated 08/10/25 @ 07:31 by Jordi Dupree MD) Chronic heart failure with preserved ejection fraction (HFpEF) ?I50.32 - Chronic diastolic (congestive) heart failure (ICD-10) Peripheral neuropathy ?G62.9 - Polyneuropathy, unspecified (ICD-10) Peripheral edema ?R60.0 - Localized edema (ICD-10) HTN (hypertension) ?I10 - Essential (primary) hypertension (ICD-10) GERD (gastroesophageal reflux disease) ?K21.9 - Gastro-esophageal reflux disease without esophagitis (ICD-10) Pneumonia due to COVID-19 virus ?U07.1 - COVID-19 (ICD-10) ?J12.82 - Pneumonia due to coronavirus disease 2019 (ICD-10) COVID-19 ?U07.1 - COVID-19 (ICD-10) Obesity ?E66.9 - Obesity, unspecified (ICD-10) Coronary artery disease ?I25.10 - Atherosclerotic heart disease of [place] coronary artery without angina pectoris (ICD-10) Surgical History H/O: hysterectomy ?Z90.710 - Acquired absence of both cervix and uterus (ICD-10) Stented coronary artery ?Z95.5 - Presence of coronary angioplasty implant and graft (ICD-10) Family History Brother Family history of diabetes mellitus Family history of cancer Sister Family history of cancer Social History (Updated 02/18/24 @ 18:30 by Bharti Rosado) Within the past year, how often did you have a drink containing alcohol: never Within the past year, how often did you have six or more drinks on one occasion: never Score interpretation: A score less than 3 is consistent with normal alcohol consumption. 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 [employer] Known occupational exposures/hazards: No Highest level of school completed/degree received: 11th grade Do you want help with school or training: No Are you now , , , , never or living with a partner: In a typical week, how many times do you talk on the telephone with family, friends, or neighbors: 3 or more times per week How often do you get together with friends or relatives: twice per week How often do you attend christian or congregation services: 4 or more times per year Do you belong to any clubs or organizations such as christian groups unions, [employer] or athletic groups, or school groups: yes Total score: 4 Score interpretation: A score of greater than or equal to 2 indicates the lowest level of social isolation. Little interest or pleasure in doing things: not at all Feeling down, depressed, or hopeless: not at all Feel stressed/tense/nervous/anxious/difficulty sleeping: only a little Due to disability, difficulty making decisions: No Do you think of yourself as: straight/heterosexual Gender Identity: female Exam Constitutional Vital Signs, click to edit/add: Last Vital Signs Temp 98.5 F 08/10/25 05:43 Pulse 68 08/10/25 07:09 Resp 20 08/10/25 05:43 BP 162/60 H 08/10/25 07:09 Pulse Ox 96 08/10/25 07:09 O2 Del Method Nasal Cannula 08/10/25 05:53 O2 Flow Rate 2 08/10/25 07:09 Course Vital Signs Vital signs: Vital Signs Temperature 98.5 F 08/10/25 05:43 Pulse Rate 76 08/10/25 05:43 Respiratory Rate 20 08/10/25 05:43 Blood Pressure 202/64 H 08/10/25 05:43 Pulse Oximetry 88 L 08/10/25 05:43 Oxygen Delivery Method Room Air 08/10/25 05:43 Temperature 98.5 F 08/10/25 05:43 Pulse Rate 68 08/10/25 07:09 Respiratory Rate 20 08/10/25 05:43 Blood Pressure 162/60 H 08/10/25 07:09 Pulse Oximetry 96 08/10/25 07:09 Oxygen Delivery Method Nasal Cannula 08/10/25 05:53 Oxygen Delivery Flow Rate 2 08/10/25 07:09 Medical Decision Making MDM Narrative Medical decision making narrative: The patient had an O2 sat of 88% on room air upon arrival and is in the mid 90s now on nasal cannula. Troponin is negative. Chest x-ray on my interpretation is consistent with CHF and she has already been given IV Lasix. The patient reports having an echo about a year ago at [facility]. Differential Diagnosis Differential Diagnosis: CHF, [place], pneumonia Lab Data Lab results reviewed: Yes I reviewed the patient's lab results Labs: Lab Results 08/10/25 Range/Units 06:15 WBC 6.2 (4.0-11.0) 10^3/uL RBC 3.00 L (4.20-5.40) 10^6/uL Hgb 8.7 L (12.0-16.0) g/dL Hct 25.9 L (36.0-48.0) % MCV 86.3 (81.0-99.0) fL MCH 29.0 (26.7-34.0) pg MCHC 33.6 (29.9-35.2) g/dL RDW 13.2 (11.0-15.0) % Plt Count 274 (150-450) 10^3/uL MPV 9.9 (9.5-13.5) fL Neut % (Auto) 74.4 (43.0-75.0) % Lymph % (Auto) 14.4 L (20.5-60.0) % [place] % (Auto) 8.1 (1.7-12.0) % Eos % (Auto) 2.1 (0.9-7.0) % Baso % (Auto) 0.5 (0.2-2.0) % Neut # (Auto) 4.6 (1.4-6.5) 10^3/uL Lymph # (Auto) 0.9 L (1.2-3.8) 10^3/uL [place] # (Auto) 0.5 (0.3-0.8) 10^3/uL Eos # (Auto) 0.1 (0.0-0.7) 10^3/uL Baso # (Auto) 0.0 (0.0-0.1) 10^3/uL Abs Immat Gran (auto) 0.03 (0.00-0.03) 10^3/uL Imm/Tot Granulo (auto) 0.5 (0.0-0.5) % Sodium 141 (136-145) mmol/L Potassium 3.8 (3.5-5.1) mmol/L Chloride 102 (98-107) mmol/L Carbon Dioxide 26.6 (21.0-32.0) mmol/L Anion Gap 16.2 BUN 34.0 H (7.0-18.0) mg/dL Creatinine 1.36 H (0.55-1.02) mg/dL Est GFR ( Amer) 45 L (>=60 mL/min/1.73m^2) Est GFR (Non-Af Amer) 37 L (>=60 mL/min/1.73m^2) BUN/Creatinine Ratio 25.0 Glucose 116 H (74-106) mg/dL Lactate 0.8 (0.4-2.0) mmol/L Calcium 8.6 (8.5-10.1) mg/dL Total Bilirubin 0.4 (0.2-1.0) mg/dL AST 20 (15-37) U/L ALT 19 (14-59) U/L Alkaline Phosphatase 46 (46-116) U/L Troponin I High Sens 17.5 (4.0-51.3) pg/mL NT-Pro-B Natriuret Pep 1378.0 (<=1800.0) pg/mL Total Protein 6.3 L (6.4-8.2) g/dL Albumin 3.1 L (3.4-5.0) g/dL Globulin 3.2 g/dL Albumin/Globulin Ratio 1.0 Imaging Data Chest x-ray: My impression: Heart failure Discharge Plan Discharge Chief Complaint: Shortness of Breath/Dyspnea Clinical Impression: Congestive heart failure Patient Disposition: Admitted As Inpatient Time of Disposition Decision: 07:31 Condition: Fair
[2025-08-10] MEDS: ACETAMINOPHEN 500 MG TABLET PO (07:35)
[2025-08-10] MEDS: DIPHENHYDRAMINE HCL 25 MG CAPSULE PO (07:36)
--- NOTE | 2025-08-10 08:48 | PC.NURSE ---
night rn gave duoneb per order, this rn placed order after the fact
[2025-08-10 09:10] LABS: Glucose Urine UA NEGATIVE (NEGATIVE)
[2025-08-10 09:20] LABS: Cast Seen? NONE SEEN #/LPF (NONE SEEN); Crystals Seen? None Seen #/HPF (None Seen)
[2025-08-10 09:21] LABS: Urine Culture Indicated NO
--- OUTSIDE RECORDS SUMMARY | 2025-08-10 09:42 | XMS_ITS | CCD ---
Author Organization [facility] [employer] Care Team Providers Care Public Transit Specialist Name Role Phone Nathan Hathaway DO Primary [...] Provider DO Nathan Hathaway Primary Care Provider [phone] Nathan Hathaway Unavailable [place], Dr. Edinson Hinojosa [...] Primary Care Provider Nathan Hathaway MD Unavailable [phone] Fransico REILLY, Nathan Primary Care Provider Farnsico REILLY, Nathan Attending Provider Nathan Hathaway DO Primary Care Provider Fransico [...] Provider KeJorge L whyte DO Emergency Provider HOLDEN ROSADO Attending Unavailable EDINSON PERRY Referring Unavailable BALLNATHAN Primary Care Unavailable EDINSON PERRY Attending Unavailable HOLDEN ROSADO Referring Unavailable BALLNATHAN Primary Care Unavailable HOLDEN ROSADO Attending Unavailable EDINSON PERRY Referring Unavailable NATAHN HATHAWAY Primary Care Unavailable HOLDEN ROSADO Referring Unavailable BALL, NATHAN Whitlock Primary Care Unavailable HOLDEN ROSADO K Referring Unavailable BALLNATHAN Primary Care Unavailable Ball Nathan REILLY Primary Care Provider Fransico REILLY, Nathan Attending Provider [phone] Nathan Hathaway DO Primary Care Provider [phone] Fransico REILLY, Nathan Attending Provider [phone] BALL, NATHAN E Primary Care Unavailable SONJA PAOLO Attending Unavailable BALL, NATHAN E Primary Care Unavailable BALL, NATHAN E Referring Unavailable BALL, NATHAN E Primary Care Unavailable BALL, NATHAN E Referring Unavailable BALL, NATHAN E Primary Care Unavailable BALL, NATHAN E Referring Unavailable Fanny Bedoya APRN Attending Provider [phone] Valentin Leonard MD, V Attending Provider [phone] Shelbi CASTRO-C, Kaia Campos Attending Provider [phone] Allergies Allergy Classification Reported Allergen(s) Allergy Type Date of Onset Reaction(s) Facility (20 sources) amLODIPine; Translations: [AMLODIPINE] Drug Allergy 07-27-20 Unknown [facility] (12 sources) Codeine / guaiFENesin; Translations: [CODEINE-GUAIFENESI N] Drug Allergy 07-27-20 21 Unknown [facility] (12 sources) Doxycycline; Translations: [DOXYCYCLINE HYCLATE] Drug Allergy 07-27-20 21 Unknown [facility] (20 sources) DULoxetine; Translations: [DULOXETINE] Drug Allergy 07-27-20 21 Unknown [facility] (20 sources) levoFLOXacin; Translations: [LEVOFLOXACIN] Drug Allergy 07-27-20 21 Unknown [facility] (20 sources) Ondansetron; Translations: [ONDANSETRON] Drug Allergy 07-27-20 Unknown [facility] Comment on above: Onset Date: 10/29/19 20 (20 sources) Penicillins; Translations: [PENICILLINS] Propensity to adverse reactions to drug 07-27-20 21 Unknown [facility] (20 sources) Sulfamethoxazole / Trimethoprim; Translations: [Bactrim] Drug Allergy 07-27-20 Unknown, Hives [facility] (8 sources) Tetracycline (class of antibiotic); Translations: [TETRACYCLINES] Propensity to adverse reactions to drug 07-27-20 Unknown [facility] (12 sources) Iodine And Iodide Containing Products; Translations: [IODINE AND IODIDE CONTAINING PRODUCTS] Drug Allergy 01-20-20 21 Unknown [facility] (20 sources) Tetanus And Diphtheria Toxoids; Translations: [TETANUS AND DIPHTHERIA TOXOIDS] Propensity to adverse reactions to drug 07-27-20 21 Unknown [facility] (20 sources) Amoxicillin Drug Allergy 02-01-20 24 Unknown, Unknown Reaction [facility] (20 sources) Codeine / guaiFENesin Drug Allergy Unknown [employer] Other (20 sources) Doxycycline Drug Allergy 12-09-19 19 Unknown, Unknown Reaction [facility] (20 sources) levoFLOXacin Drug Allergy Unknown [employer] Other (20 sources) Ondansetron; Translations: [Zofran] Drug Allergy 11-05-19 Unknown [facility] (20 sources) Tetanus-Diphtheria Toxoids Td Drug allergy Unknown [employer] [facility] [employer] Other (20 sources) Allopurinol Drug Allergy 11-05-19 24 Unknown [facility] (1 source) amLODIPine Drug Allergy 11-05-19 20 [facility] (1 source) Doxycycline Drug Allergy [facility] (1 source) DULoxetine Drug Allergy 11-05-19 20 [facility] (1 source) Iodine (And Iodine Containting Drugs) Drug allergy (disorder) 01-20-20 21 [facility] (1 source) Sulfamethoxazole / Trimethoprim Drug Allergy 11-05-19 20 [facility] (9 sources) Sulfonamides (Antibiotic); Translations: [SULFA (SULFONAMIDE ANTIBIOTICS)] Allergy to substance 03-08-20 23 Rash, Unknown [facility] (16 sources) Sulfamethoxazole Drug Allergy 03-09-20 23 Unknown Reaction [facility] (8 sources) Trimethoprim; Translations: [TRIMETHOPRIM] Drug Allergy 03-09-20 23 Unknown [facility] (20 sources) Pseudoephedrine; Translations: [PSEUDOEPHEDRINE] Drug Allergy 10-29-19 Unknown [employer] Other (20 sources) Tetracycline Drug Allergy Unknown [employer] Other (20 sources) Cheratussin AC *COUGH/COLD/ALLERGY * Propensity to adverse reactions 10-29-19 Unknown [employer] Other (20 sources) Zofran *ANTIEMETICS* Propensity to adverse reactions 10-29-19 Unknown [facility] [facility] [place] Other (5 sources) amLODIPine Drug Allergy Unknown [employer] Other (20 sources) Azithromycin; Translations: [AZITHROMYCIN] Drug Allergy 10-17-20 rash, Swelling [facility] (20 sources) Codeine Drug Allergy 02-01-20 Unknown Reaction [facility] (15 sources) guaiFENesin Drug Allergy 02-01-20 24 Unknown Reaction [facility] (15 sources) 12 Hour Decongestant Allergy to substance 02-01-20 Unknown Reaction [facility] Comment on above: Onset Date: 10/29/19 (15 sources) Cheratussin AC *COUGH/COLD/ALL Allergy to substance 02-01-20 Unknown Reaction [facility] Comment on above: Free Text Allergy: C heratussin AC *COUGH/COLD/ALLERGY*; Onset Date: 10/29/2019 (8 sources) Penicillins Drug Intolerance 07-27-20 21 [facility] (4 sources) Penicillins Propensity to adverse reactions to drug 07-27-20 21 Unknown [facility] (4 sources) Tetracyclines Propensity to adverse reactions to drug 07-27-20 21 Unknown [facility] (1 source) Allopurinol; Translations: [ALLOPURINOL] Drug Allergy 11-05-19 [facility] Medications Current Medications Medication Drug Class(es) Dates Sig (Normalized) Sig (Original) AeroChamber Mini Chamber - (5 sources) Start: 04-20-2023 AeroChamber Mini Chamber - Use with MDI every 6 hours as needed inhaled every 6 hours as needed for 30 days Mar, Active [id number] 200 actuat albuterol 0.09 mg/actuat metered dose [...] twice daily. 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) drug therapy; Translations: [OTH SOFTWARE LICENSING EXECUTIVE CURRENT DRUG THERAPY] Onset: 02-14-2023 Episodic Other [...] 07-15-2025 Basophils (Bld) [#/Vol] 0.05 10*3/uL <0.11 [facility] Basophils/100 WBC Auto (Bld) Ordered By: Valentin Leonard on 07-15-2025 Basophils/100 WBC (Bld) 0.8 % [facility] Blood manual differential co mment interpretation narrativeOrdered By: Valentin Leonard on 07-15-2025 Manual differential comment Arturo (Bld) [Interp] Auto [facility] CBC W Auto Differential pane l (Bld)on 07-15-2025 Basophils (Bld) [#/Vol] 0.05 10*3/uL Normal <0.11 [facility] Comment on above: Order Comment: Speci men Type: BLOOD SPECIMEN Ordering Facility: [facility] Address: [address] [place] [address] Performed By: #### 1 5061-5 #### [facility] CLIA [id number] [address] [place] [address] [place] Basophils/100 WBC (Bld) 0.8 % Normal [facility] Comment on above: Order Comment: Speci men Type: BLOOD SPECIMEN Ordering Facility: [facility] Address: [address] [place] [address] Performed By: #### 1 5061-5 #### [facility] CLIA [id number] [address] [place] [address] [place] Differential cell count method Nom (Bld) Auto Normal [facility] Comment on above: Order Comment: Speci men Type: BLOOD SPECIMEN Ordering Facility: [facility] Address: [address] [place] [address] Performed By: #### 1 5061-5 #### [facility] CLIA [id number] [address] [place] [address] [place] Eosinophils (Bld) [#/Vol] 0.16 10*3/uL Normal <0.46 [facility] Comment on above: Order Comment: Speci men Type: BLOOD SPECIMEN Ordering Facility: [facility] Address: [address] [place] [address] Performed By: #### 1 5061-5 #### [facility] CLIA [id number] [address] [place] [address] [place] Eosinophils/100 WBC (Bld) 2.5 % Normal [facility] Comment on above: Order Comment: Speci men Type: BLOOD SPECIMEN Ordering Facility: [facility] Address: [address] [place] [address] Performed By: #### 1 5061-5 #### [facility] CLIA [id number] [address] [place] [address] [place] Erythrocyte distribution width (RBC) [Ratio] 13.5 % Normal 11.5-15.0 [facility] Comment on above: Order Comment: Speci men Type: BLOOD SPECIMEN Ordering Facility: [facility] Address: [address] [place] [address] Performed By: #### 1 5061-5 #### [facility] CLIA [id number] [address] [place] [address] [place] Hematocrit (Bld) [Volume fraction] 27.6 % Low 36.0-46.0 [facility] Comment on above: Order Comment: Speci men Type: BLOOD SPECIMEN Ordering Facility: [facility] Address: [address] [place] [address] Performed By: #### 1 5061-5 #### [facility] CLIA [id number] [address] [place] [address] [place] Hemoglobin (Bld) [Mass/Vol] 8.9 g/dL Low 11.5-15.5 [facility] Comment on above: Order Comment: Speci men Type: BLOOD SPECIMEN Ordering Facility: [facility] Address: [address] [place] [address] Performed By: #### 1 5061-5 #### [facility] CLIA [id number] [address] [place] [address] [place] Immature granulocytes (Bld) [#/Vol] 0.03 10*3/uL Normal <0.10 [facility] Comment on above: Order Comment: Speci men Type: BLOOD SPECIMEN Ordering Facility: [facility] Address: [address] [place] [address] Performed By: #### 1 5061-5 #### [facility] CLIA [id number] [address] [place] [address] [place] Immature granulocytes/100 WBC (Bld) 0.5 % Normal [facility] Comment on above: Order Comment: Speci men Type: BLOOD SPECIMEN Ordering Facility: [facility] Address: [address] [place] [address] Performed By: #### 1 5061-5 #### [facility] CLIA [id number] [address] [place] [address] [place] Lymphocytes (Bld) [#/Vol] 0.77 10*3/uL Low 1.00-4.00 [facility] Comment on above: Order Comment: Speci men Type: BLOOD SPECIMEN Ordering Facility: [facility] Address: [address] [place] [address] Performed By: #### 1 5061-5 #### [facility] CLIA [id number] [address] [place] [address] [place] Lymphocytes/100 WBC (Bld) 12.3 % Normal [facility] Comment on above: Order Comment: Speci men Type: BLOOD SPECIMEN Ordering Facility: [facility] Address: [address] [place] [address] Performed By: #### 1 5061-5 #### [facility] CLIA [id number] [address] [place] [address] [place] MCH (RBC) [Entitic mass] 28.8 pg Normal 26.0-34.0 [facility] Comment on above: Order Comment: Speci men Type: BLOOD SPECIMEN Ordering Facility: [facility] Address: [address] [place] [address] Performed By: #### 1 5061-5 #### [facility] CLIA [id number] [address] [place] [address] [place] MCHC (RBC) [Mass/Vol] 32.2 g/dL Normal 30.5-36.0 [facility] Comment on above: Order Comment: Speci men Type: BLOOD SPECIMEN Ordering Facility: [facility] Address: [address] [place] [address] Performed By: #### 1 5061-5 #### [facility] CLIA [id number] [address] [place] [address] [place] MCV (RBC) [Entitic vol] 89.3 fL Normal 80.0-100.0 [facility] Comment on above: Order Comment: Speci men Type: BLOOD SPECIMEN Ordering Facility: [facility] Address: [address] [place] [address] Performed By: #### 1 5061-5 #### [facility] CLIA [id number] [address] [place] [address] [place] Monocytes (Bld) [#/Vol] 0.65 10*3/uL Normal <0.87 [facility] Comment on above: Order Comment: Speci men Type: BLOOD SPECIMEN Ordering Facility: [facility] Address: [address] [place] [address] Performed By: #### 1 5061-5 #### [facility] CLIA [id number] [address] [place] [address] [place] Monocytes/100 WBC (Bld) 10.4 % Normal [facility] Comment on above: Order Comment: Speci men Type: BLOOD SPECIMEN Ordering Facility: [facility] Address: [address] [place] [address] Performed By: #### 1 5061-5 #### [facility] CLIA [id number] [address] [place] [address] [place] Neutrophils (Bld) [#/Vol] 4.62 10*3/uL Normal 1.45-7.50 [facility] Comment on above: Order Comment: Speci men Type: BLOOD SPECIMEN Ordering Facility: [facility] Address: [address] [place] [address] Performed By: #### 1 5061-5 #### [facility] CLIA [id number] [address] [place] [address] [place] Neutrophils/100 WBC (Bld) 73.5 % Normal [facility] Comment on above: Order Comment: Speci men Type: BLOOD SPECIMEN Ordering Facility: [facility] Address: [address] [place] [address] Performed By: #### 1 5061-5 #### [facility] CLIA [id number] [address] [place] [address] [place] Nucleated RBC (Bld) [#/Vol] 10*3/uL Normal <0.01 [facility] Comment on above: Order Comment: Speci men Type: BLOOD SPECIMEN Ordering Facility: [facility] Address: [address] [place] [address] Performed By: #### 1 5061-5 #### [facility] CLIA [id number] [address] [place], [place] [address] [place] Nucleated RBC/100 WBC (Bld) [Ratio] 0.0 /100 WBC Normal [facility] Comment on above: Order Comment: Speci men Type: BLOOD SPECIMEN Ordering Facility: [facility] Address: [address] [place] [address] Performed By: #### 1 5061-5 #### [facility] CLIA [id number] [address] [place] [address] [place] Platelet mean volume (Bld) [Entitic vol] 9.9 fL Normal 9.0-12.7 [facility] Comment on above: Order Comment: Speci men Type: BLOOD SPECIMEN Ordering Facility: [facility] Address: [address] [place] [address] Performed By: #### 1 5061-5 #### [facility] CLIA [id number] [address] [place] [address] [place] Platelets (Bld) [#/Vol] 295 10*3/uL Normal 150-400 [facility] Comment on above: Order Comment: Speci men Type: BLOOD SPECIMEN Ordering Facility: [facility] Address: [address] [place] [address] Performed By: #### 1 5061-5 #### [facility] CLIA [id number] [address] [place] [address] [place] RBC (Bld) [#/Vol] 3.09 10*6/uL Low 3.90-5.20 [facility] Comment on above: Order Comment: Speci men Type: BLOOD SPECIMEN Ordering Facility: [facility] Address: [address] [place] [address] Performed By: #### 1 5061-5 #### [facility] CLIA [id number] [address] [place] [address] [place] WBC (Bld) [#/Vol] 6.28 10*3/uL Normal 3.70-11.00 [facility] Comment on above: Order Comment: Speci men Type: BLOOD SPECIMEN Ordering Facility: [facility] Address: [address] [place] [address] Performed By: #### 1 5061-5 #### [facility] CLIA [id number] [address] [place], [place] [address] [place] [address] [place] [facility] [place] Comprehensive metabolic 2000 panelon 07-15-2025 Albumin [Mass/Vol] 3.7 g/dL Low 3.9-4.9 [facility] Comment on above: Order Comment: Speci men Type: BLOOD SPECIMEN Ordering Facility: [facility] Address: [address] [place] [address] Performed By: #### 2 4323-8 #### [facility] CLIA [id number] [address] [place] [address] ALP [Catalytic activity/Vol] 45 U/L Normal 34-123 [facility] Comment on above: Order Comment: Speci men Type: BLOOD SPECIMEN Ordering Facility: [facility] Address: [address] [place] [address] Performed By: #### 2 4323-8 #### [facility] CLIA [id number] [address] [place] [address]148 ALT [Catalytic activity/Vol] 10 U/L Normal 7-38 [facility] Comment on above: Order Comment: Speci men Type: BLOOD SPECIMEN Ordering Facility: [facility] Address: [address] [place] [address] Performed By: #### 2 4323-8 #### [facility] CLIA [id number] [address] [place] [address]37 Anion gap [Moles/Vol] 10 mmol/L Normal 8-15 [facility] Comment on above: Order Comment: Speci men Type: BLOOD SPECIMEN Ordering Facility: [facility] Address: [address] [place] [address] Performed By: #### 2 4323-8 #### [facility] CLIA [id number] [address] [place] [address] AST [Catalytic activity/Vol] 16 U/L Normal 13-35 [facility] Comment on above: Order Comment: Speci men Type: BLOOD SPECIMEN Ordering Facility: [facility] Address: [address] [place] [address] Performed By: #### 2 4323-8 #### [facility] CLIA [id number] [address] [place] [address]367 Bilirubin [Mass/Vol] 0.3 mg/dL Normal 0.2-1.3 [facility] Comment on above: Order Comment: Speci men Type: BLOOD SPECIMEN Ordering Facility: [facility] Address: [address] [place] [address] Performed By: #### 2 4323-8 #### [facility] CLIA [id number] [address] [place] [address] Calcium [Mass/Vol] 9.0 mg/dL Normal 8.5-10.2 [facility] Comment on above: Order Comment: Speci men Type: BLOOD SPECIMEN Ordering Facility: [facility] Address: [address] [place] [address] Performed By: #### 2 4323-8 #### [facility] CLIA [id number] [address] [place] [address] Chloride [Moles/Vol] 101 mmol/L Normal 98-107 [facility] Comment on above: Order Comment: Speci men Type: BLOOD SPECIMEN Ordering Facility: [facility] Address: [address] [place] [address] Performed By: #### 2 4323-8 #### [facility] CLIA [id number] [address] [place] [address]10 CO2 [Moles/Vol] 28 mmol/L Normal 22-30 [facility] Comment on above: Order Comment: Speci men Type: BLOOD SPECIMEN Ordering Facility: [facility] Address: [address] [place] [address] Performed By: #### 2 4323-8 #### [facility] CLIA [id number] [address] [place] [address] Creatinine [Mass/Vol] 1.64 mg/dL High 0.58-0.96 [facility] Comment on above: Order Comment: Speci men Type: BLOOD SPECIMEN Ordering Facility: [facility] Address: [address] [place] [id number] Performed By: #### 2 4323-8 #### [facility] CLIA [id number] [address] [place] [address]20 eGFRcr SerPlBld CKD-EPI 2020 31 mL/min/1.73m??? Low >=60 [facility] Comment on above: Order Comment: Speci men Type: BLOOD SPECIMEN Ordering Facility: [facility] Address: [address] [place] [address] Result Comment: Shoshana mated Glomerular Filtration Rate [...] GFR. Performed By: #### 2 4323-8 #### [facility] CLIA [id number] [address] [place] [address]24 Glucose [Mass/Vol] 103 mg/dL High 74-99 [facility] Comment on above: Order Comment: Speci men Type: BLOOD SPECIMEN Ordering Facility: [facility] Address: [address] [id number] Result Comment: The [place] [employer] (ADA) [...] 1). Performed By: #### 2 4323-8 #### [facility] CLIA [id number] [address] [place] [address] Potassium [Moles/Vol] 4.7 mmol/L Normal 3.7-5.1 [facility] Comment on above: Order Comment: Speci men Type: BLOOD SPECIMEN Ordering Facility: [facility] Address: [address] [place] [address] Performed By: #### 2 4323-8 #### [facility] CLIA [id number] [address] [place] [address] Protein [Mass/Vol] 5.9 g/dL Low 6.3-8.0 [facility] Comment on above: Order Comment: Speci men Type: BLOOD SPECIMEN Ordering Facility: [facility] Address: [address] [place], [place] [address] Performed By: #### 2 4323-8 #### [facility] CLIA [id number] [address] [place] [address]75 Sodium [Moles/Vol] 139 mmol/L Normal 136-144 [facility] Comment on above: Order Comment: Speci men Type: BLOOD SPECIMEN Ordering Facility: [facility] Address: [address] [place] [address] Performed By: #### 2 4323-8 #### [facility] CLIA [id number] [address] [place] [address] Urea nitrogen [Mass/Vol] 32 mg/dL High 7-21 [facility] Comment on above: Order Comment: Speci men Type: BLOOD SPECIMEN Ordering Facility: [facility] Address: [address] [place] [address] Performed By: #### 2 4323-8 #### [facility] CLIA [id number] [address] [place] [address] EPO SerPl-aCncon 07-15-2025 Erythropoietin (EPO) Qn 26.4 mIU/mL High 2.6-18.5 [facility] Comment on above: Order Comment: Speci men Type: BLOOD SPECIMEN Ordering Facility: [facility] Address: [address] [place] [address] Performed By: #### 1 5061-5 #### [facility] CLIA [id number] [address] [place] [address] [place] Eosinophils/100 WBC Auto (Bl d)Ordered By: Valentin Leonard on 07-15-2025 Eosinophils/100 WBC (Bld) 2.5 % [facility] Erythrocyte distribution wid th Auto (RBC) [Ratio]Ordered By: Valentin Leonard on 07-15-2025 Erythrocyte distribution width (RBC) [Ratio] 13.5 % 11.5-15.0 [facility] Ferritin SerPl-mCncon 2024 Ferritin [Mass/Vol] 174.0 ng/mL Normal 14.7-205.1 [facility] Comment on above: Order Comment: Speci men Type: BLOOD SPECIMEN Ordering Facility: [facility] Address: [address] [place] [address] Performed By: #### 5 0190-8, 2284-8, 9, 2275-4 #### [facility] CLIA [id number] [address] [place] [address] [place] Folate SerPl-mCncon 07-15-20 25 Folate [Mass/Vol] 17.5 ng/mL Normal >4.7 [facility] Comment on above: Order Comment: Speci men Type: BLOOD SPECIMEN Ordering Facility: [facility] Address: [address] [place] [address] Performed By: #### 5 0190-8, 2284-8, 9, 6-4 #### [facility] CLIA [id number] [address] [place] [address] [place] Glomerular filtration rate [ Volume Rate/Area] in Serum, Plasma or Blood by CreatinineOrdered By: Valentin Leonard on 07-15-2025 Glomerular filtration rate [Volume Rate/Area] in Serum, Plasma or Blood by Creatinine 31 mL/min/1.73m??? Low >=60 [facility] Comment on above: Estimated Glomerular Filtration Rate [...] (Bld) [Volume fraction] 27.6 % Low 36.0-46.0 [facility] Hemoglobin [Mass/volume] in BloodOrdered By: Valentin Leonard on 07-15-2025 Hemoglobin (Bld) [Mass/Vol] 8.9 g/dL Low 11.5-15.5 [facility] Iron and Iron binding capaci ty panelon 07-15-2025 Iron [Mass/Vol] 45 ug/dL Normal 41-186 [facility] Comment on above: Order Comment: Speci men Type: BLOOD SPECIMEN Ordering Facility: [facility] Address: [address] [place] [address] Performed By: #### 5 0190-8, 2284-8, 2132-9, 2276-4 #### [facility] CLIA [id number] [address] [place] [address] [place] Iron binding capacity [Mass/Vol] 255 ug/dL Normal 232-386 [facility] Comment on above: Order Comment: Speci men Type: BLOOD SPECIMEN Ordering Facility: [facility] Address: [address] [place] [address] Performed By: #### 5 0190-8, 4-8, 2131-9, 6-4 #### [facility] CLIA [id number] [address] [place] [address] [place] Iron/TIBC [Molar ratio] 17.6 % Normal 15.0-57.0 [facility] Comment on above: Order Comment: Speci men Type: BLOOD SPECIMEN Ordering Facility: [facility] Address: [address] [place] [address] Performed By: #### 5 0190-8, 4-8, 2131-9, 6-4 #### [facility] CLIA [id number] [address] [place] [address] [place] Iron binding capacity [Mass/ volume] in Serum or PlasmaOrdered By: Valentin Abhyankar on 07-15-2025 Iron binding capacity [Mass/Vol] 255 ug/dL 232-386 [facility] Iron saturation [Mass Fracti on] in Serum or PlasmaOrdered By: Valentin Abhyankar on 07-15-2025 Iron saturation [Mass fraction] 17.6 % 15.0-57.0 [facility] Laboratory - Chemistry and C hemistry - challengeOrdered By: Valentin Leonard on 07-15-2025 Albumin [Mass/Vol] 3.7 g/dL Low 3.9-4.9 [facility] ALP [Catalytic activity/Vol] 45 U/L 34-123 [facility] ALT [Catalytic activity/Vol] 10 U/L 7-38 [facility] AST [Catalytic activity/Vol] 16 U/L 13-35 [facility] Bilirubin [Mass/Vol] 0.3 mg/dL 0.2-1.3 [facility] Calcium [Mass/Vol] 9.0 mg/dL 8.5-10.2 [facility] Chloride [Moles/Vol] 101 mmol/L 98-107 [facility] CO2 [Moles/Vol] 28 mmol/L 22-30 [facility] Creatinine [Mass/Vol] 1.64 mg/dL High 0.58-0.96 [facility] Ferritin [Mass/Vol] 174.0 ng/mL 14.7-205.1 [facility] Glucose [Mass/Vol] 103 mg/dL High 74-99 [facility] Comment on above: The [place] Diab[employer] s Association (ADA) provides guidance for [...] [place] Diabetes Association. Diabetes Care. 2016.39(Suppl 1). Iron [Mass/Vol] 45 ug/dL 41-186 [facility] Potassium [Moles/Vol] 4.7 mmol/L 3.7-5.1 [facility] Sodium [Moles/Vol] 139 mmol/L 136-144 [facility] Urea nitrogen [Mass/Vol] 32 mg/dL High 7-21 [facility] Laboratory - Chemistry and C hemistry - challengeOrdered By: Nathan Hathaway on 07-15-2025 Cobalamin (Vitamin B12) [Mass/Vol] 1457 pg/mL High 232-1245 [facility] Laboratory - Hematology and Cell countsOrdered By: Valentin Leonard on 07-15-2025 Eosinophils (Bld) [#/Vol] 0.16 10*3/uL <0.46 [facility] Immature granulocytes (Bld) [#/Vol] 0.03 10*3/uL <0.10 [facility] Immature granulocytes/100 WBC (Bld) 0.5 % [facility] Leukocytes [#/volume] correc miguel for nucleated erythrocytes in Blood by Automated counOrdered By: Valentin Leonard on 07-15-2025 WBC corrected for nucl RBC Auto (Bld) [#/Vol] 6.28 k/uL 3.70-11.00 [facility] Lymphocytes Auto (Bld) [#/Vo l]Ordered By: Valentin Leonard on 07-15-2025 Lymphocytes (Bld) [#/Vol] 0.77 10*3/uL Low 1.00-4.00 [facility] Lymphocytes/100 WBC Auto (Bl d)Ordered By: Valentin Leonard on 07-15-2025 Lymphocytes/100 WBC (Bld) 12.3 % [facility] MCH Auto (RBC) [Entitic mass ]Ordered By: Valentin Leonard on 07-15-2025 MCH (RBC) [Entitic mass] 28.8 pg 26.0-34.0 [facility] MCHC Auto (RBC) [Mass/Vol]Or dered By: Valentin Leonard on 07-15-2025 MCHC (RBC) [Mass/Vol] 32.2 g/dL 30.5-36.0 [facility] MCV Auto (RBC) [Entitic vol] Ordered By: Valentin Leonard on 07-15-2025 MCV (RBC) [Entitic vol] 89.3 fL 80.0-100.0 [facility] 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 ANALYSI Son 07-15-2025 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 RESULT Normal [facility] Comment on above: Order Comment: Speci men Type: BLOOD SPECIMEN Ordering Facility: [facility] Address: [address] [place] [address] Result Comment: MYD8 8 L265P MUTATION ANALYSIS Laboratory Accession Number: [id number] Sample Type: Peripheral Blood Result: MYD88 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 Interpretation: The MYD88 missense variant L265P (c.794T>C, p.Mxo061Jtn) is present. L265P is highly characteristic of [...] presence or absence of the L265P (c.794T>C, p.Hrl961Fck; g.[id number]; [id number]) variant (mutation) in MYD88 gene (NM_002468.4) using [...] MYD88 mutations in human lymphoma. Nature 2011. 470(5965):115-9. 2) Joya SL, Anai WagonerJ, DW, James L, Mikey JR, [facility] ED: MYD88 L265P somatic mutation: its usefulness in the differential diagnosis of bone marrow involvement by B-cell lymphoproliferative disorders. Am J Clin Pathol. 2013. 140(3):387-94. 3) Obi SP, Spencer L, Brooks G, et al. MYD88 L265P somatic mutation in Waldenstrom's macroglobulinemia. N Engl J Med. 2012. 367(4)234-33. 4) Gage WagonerQ, Juan J MADDEN, Ariel LL, Tanya K. Toll-like receptors and cancer: MYD88 mutation and inflammation. Front Immunol. 2014 May 28;367(5):1-10. 5) Nery X, Francy W, Maykel Q, et al. MYD88 L265P Mutation in Lymphoid Malignancies. Cancer Res. 2018. 78(73):7532-54. Disclaimer: This test was developed and its performance characteristics determined by [facility]'s Pathology and Laboratory Medicine Department. It has not been cleared or approved by the FDA. [facility]'s Pathology and Laboratory Medicine Department is regulated under CLIA as certified to perform high-complexity testing. This test is used for clinical purposes. It should not be regarded as investigational or for research. Test performed at [facility], [address] [place] [address]. CLIA Number: [id number] Interpretation performed by Natalee Bolanos, PhD, HCLD Performed By: #### 1 5061-5 #### [facility] CLIA [id number] [address] [place] [address] [place] [address] [place] Monocytes Auto (Bld) [#/Vol] Ordered By: Valentin Abhyankar on 07-15-2025 Monocytes (Bld) [#/Vol] 0.65 10*3/uL <0.87 [facility] Monocytes/100 WBC Auto (Bld) Ordered By: Valentin Abhyankar on 07-15-2025 Monocytes/100 WBC (Bld) 10.4 % [facility] Neutrophils Auto (Bld) [#/Vo l]Ordered By: Valentin Abhyankar on 07-15-2025 Neutrophils (Bld) [#/Vol] 4.62 10*3/uL 1.45-7.50 [facility] Neutrophils/100 WBC Auto (Bl d)Ordered By: Valentin Abhyankar on 07-15-2025 Neutrophils/100 WBC (Bld) 73.5 % [facility] No Panel InformationOrdered By: Valentin Abhyankar on 07-15-2025 Folate 17.5 ng/mL >4.7 [facility] MYD88 L265P Mutation See comment [facility] Comment on above: 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 ANALYSISLaboratory Accession Number: [id number] Type: Peripheral BloodResult:MYD88 L265P (c.794T>C, p.Yql500Ofz) detected with variant allelefraction (vaf) 0.98%.Interpretation:The MYD88 missense variant L265P (c.794T>C, p.Yad823Tpu) is present.L265P is highly characteristic of lymphoplasmacyticlymphoma/Waldenstrom's macroglobulinemia, where it is found in >90% ofcases. This abnormality may also be found in diffuse large B-celllymphomas and in a small percentage of other small B-cell neoplasmsincluding chronic lymphocytic leukemia and marginal zone lymphomas.Clinical and pathologic correlation is suggested.Methodology:DNA extracted from the specimen is interrogated for the presence orabsence of the L265P (c.794T>C, p.Otr984Zcu; g.72357517; [id number])variant (mutation) in MYD88 gene (NM_002468.4) using droplet digitalpolymerase chain reaction (PCR). Droplet digital PCR includespartitioning of DNA into droplets, droplet independent PCR,interrogation using allele specific hydrolysis probes, and analysis ofdroplets using Poisson distribution to calculate the copy number ofMYD88 L265P and wild-type MYD88. The reference genome used goQQVt23/hg38.Limitations:This test is designed to detect the L265P variant in the MYD88 gene.Uncommon variants or single nucleotide polymorphisms may affectbinding of probes or primers and may rarely result in false negative,false positive, or indeterminate results. Other variants in MYD88 willnot be identified by this test. The lower limit of detection of thisassay is approximately 0.5% variant allele fraction (vaf) for uqyHTE97 L265P variant. Although vaf is provided for reference, thisvalue should be interpreted with caution as this test is intended forqualitative purposes and is not validated as a quantitative test. [id number] L265P result cannot be used on a standalone basis for diagnosisof lymphoplasmacytic lymphoma and needs to be considered in thecontext of clinical and morphologic presentation.References:1) Nikkie LOPEZ, Cristhian ADAMS, Hannah R, et al. Oncogenically active BNX38shzphwntq in human lymphoma. Nature 2011. 470(0007):115-9.2) Joya RIVAS, Anai WagonerJ, Warden INFANTE, James L, Mikey Nash ALLEN ED: [id number] somatic mutation: its usefulness in the differential diagnosisof bone marrow involvement by B-cell lymphoproliferative disorders. AmJ Clin Pathol. 2013. 140(3):387-94.3) Obi SP, Spencer L, Todd G, et al. 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 N Engl J Med. 2012. 367(1)642-33.4) Almonte JQ, Juan J YS, Ariel LL, Tanya K. Toll-like receptorsand cancer: MYD88 mutation and inflammation. Front Immunol. 2014 ;367(5):1-10.5) Gabriel X, Li W, Maykel Q, et al. 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 Cancer Res. 2018. 78(10):1420-24.Disclaimer:This test was developed and its performance characteristics determinedby [facility]'s Pathology and Laboratory Medicine Department. Ithas not been cleared or approved by the FDA. [facility]'s[facility] Medicine Department is regulated under CLIAas certified to perform high-complexity testing. This test is used forclinical purposes. It should not be regarded as investigational or forresearch.Test performed at [facility] Main Lab, [address] [place] [address]. CLIA Number: [id number] performed by Natalee Bolanos, PhD, [facility] Nucleated RBC Auto (Bld) [#/ Vol]Ordered By: Valentin Leonard on 07-15-2025 Nucleated RBC (Bld) [#/Vol] 10*3/uL <0.01 [facility] Nucleated erythrocytes [Pres ence] in Blood by Automated countOrdered By: Valentin Leonard on 07-15-2025 Nucleated RBC Auto Ql (Bld) 0.0 /100{WBC} [facility] Platelet mean volume Auto (B ld) [Entitic vol]Ordered By: Valentin Leonard on 07-15-2025 Platelet mean volume (Bld) [Entitic vol] 9.9 fL 9.0-12.7 [facility] Platelets Auto (Bld) [#/Vol] Ordered By: Valentin Leonard on 07-15-2025 Platelets (Bld) [#/Vol] 295 10*3/uL 150-400 [facility] Protein [Mass/volume] in Ser um or PlasmaOrdered By: Valentin Leonard on 07-15-2025 Protein [Mass/Vol] 5.9 g/dL Low 6.3-8.0 [facility] RBC Auto (Bld) [#/Vol]Ordere d By: Valentin Leonard on 07-15-2025 RBC (Bld) [#/Vol] 3.09 10*6/uL Low 3.90-5.20 [facility] Serum or plasma anion gap de terminationOrdered By: Valentin Leonard on 07-15-2025 Anion gap [Moles/Vol] 10 mmol/L 8-15 [facility] Serum or plasma erythropoiet in (EPO) measurement (units/volume)Ordered By: Valentin Leonard on 07-15-2025 Erythropoietin (EPO) Qn 26.4 mIU/mL High 2.6-18.5 [facility] Vit B12 SerPl-mCncon 025 Cobalamin (Vitamin B12) [Mass/Vol] 1457 pg/mL High 232-1245 [facility] Comment on above: Order Comment: Speci men Type: BLOOD SPECIMEN Ordering Facility: [facility] Address: [address] [place] [address] Performed By: #### 5 0190-8, 2284-8, 2132-9, 2276-4 #### [facility] CLIA [id number] [address] [place] [address] [place] CNPDena 07-10-2025 CNPN Telephone (NCCAP) -------- LASHAUN JOAQUIN ([id number]) 1940 F Date Time Provider Department 07/10/25 [...] Hathaway's office Please return the call at [phone] KERRY Menendez Felicia, RN 07/10/2025 12:07 PM [...] Status:Closed by YOLANDA COBIAN on 07/10/25 Normal [facility] Albumin [Mass/volume] in Ser um or PlasmaOrdered By: Nathan Hathaway on 07-08-2025 Albumin [Mass/Vol] 3.33 g/dL Low 3.43-5.41 [facility] CBC W Auto Differential pane l (Bld)on 07-08-2025 Basophils (Bld) [#/Vol] 0.05 10*3/uL Normal <0.11 [facility] Comment on above: Order Comment: Speci men Type: BLOOD SPECIMEN Ordering Facility: [facility] Address: [address] [place] [address] Performed By: #### 1 5061-5 #### [facility] CLIA [id number] [address] [place] [address] [place] Basophils/100 WBC (Bld) 0.9 % Normal [facility] Comment on above: Order Comment: Speci men Type: BLOOD SPECIMEN Ordering Facility: [facility] Address: [address] [place] [address] Performed By: #### 1 5061-5 #### [facility] CLIA [id number] [address] [place] [address] [place] Differential cell count method Nom (Bld) Auto Normal [facility] Comment on above: Order Comment: Speci men Type: BLOOD SPECIMEN Ordering Facility: [facility] Address: [address] [place] [address] Performed By: #### 1 5061-5 #### [facility] CLIA [id number] [address] [place] [address] [place] Eosinophils (Bld) [#/Vol] 0.18 10*3/uL Normal <0.46 [facility] Comment on above: Order Comment: Speci men Type: BLOOD SPECIMEN Ordering Facility: [facility] Address: [address] [place] [address] Performed By: #### 1 5061-5 #### [facility] CLIA [id number] [address] [place] [address] [place] Eosinophils/100 WBC (Bld) 3.3 % Normal [facility] Comment on above: Order Comment: Speci men Type: BLOOD SPECIMEN Ordering Facility: [facility] Address: [address] [place] [address] Performed By: #### 1 5061-5 #### [facility] CLIA [id number] [address] [place] [address] [place] Erythrocyte distribution width (RBC) [Ratio] 13.5 % Normal 11.5-15.0 [facility] Comment on above: Order Comment: Speci men Type: BLOOD SPECIMEN Ordering Facility: [facility] Address: [address] [place] [address] Performed By: #### 1 5061-5 #### [facility] CLIA [id number] [address] [place] [address] [place] Hematocrit (Bld) [Volume fraction] 27.8 % Low 36.0-46.0 [facility] Comment on above: Order Comment: Speci men Type: BLOOD SPECIMEN Ordering Facility: [facility] Address: [address] [place] [address] Performed By: #### 1 5061-5 #### [facility] CLIA [id number] [address] [place] [address] [place] Hemoglobin (Bld) [Mass/Vol] 9.0 g/dL Low 11.5-15.5 [facility] Comment on above: Order Comment: Speci men Type: BLOOD SPECIMEN Ordering Facility: [facility] Address: [address] [place] [address] Performed By: #### 1 5061-5 #### [facility] CLIA [id number] [address] [place] [address] [place] Immature granulocytes (Bld) [#/Vol] 0.03 10*3/uL Normal <0.10 [facility] Comment on above: Order Comment: Speci men Type: BLOOD SPECIMEN Ordering Facility: [facility] Address: [address] [place] [address] Performed By: #### 1 5061-5 #### [facility] CLIA [id number] [address] [place] [address] [place] Immature granulocytes/100 WBC (Bld) 0.5 % Normal [facility] Comment on above: Order Comment: Speci men Type: BLOOD SPECIMEN Ordering Facility: [facility] Address: [address] [place] [address] Performed By: #### 1 5061-5 #### [facility] CLIA [id number] [address] [place] [address] [place] Lymphocytes (Bld) [#/Vol] 0.87 10*3/uL Low 1.00-4.00 [facility] Comment on above: Order Comment: Speci men Type: BLOOD SPECIMEN Ordering Facility: [facility] Address: [address] [place] [address] Performed By: #### 1 5061-5 #### [facility] CLIA [id number] [address] [place] [address] [place] Lymphocytes/100 WBC (Bld) 15.9 % Normal [facility] Comment on above: Order Comment: Speci men Type: BLOOD SPECIMEN Ordering Facility: [facility] Address: [address] [place] [address] Performed By: #### 1 5061-5 #### [facility] CLIA [id number] [address] [place] [address] [place] MCH (RBC) [Entitic mass] 28.8 pg Normal 26.0-34.0 [facility] Comment on above: Order Comment: Speci men Type: BLOOD SPECIMEN Ordering Facility: [facility] Address: [address] [place] [address] Performed By: #### 1 5061-5 #### [facility] CLIA [id number] [address] [place] [address] [place] MCHC (RBC) [Mass/Vol] 32.4 g/dL Normal 30.5-36.0 [facility] Comment on above: Order Comment: Speci men Type: BLOOD SPECIMEN Ordering Facility: [facility] Address: [address] [place] [address] Performed By: #### 1 5061-5 #### [facility] CLIA [id number] [address] [place] [address] [place] MCV (RBC) [Entitic vol] 89.1 fL Normal 80.0-100.0 [facility] Comment on above: Order Comment: Speci men Type: BLOOD SPECIMEN Ordering Facility: [facility] Address: [address] [place] [address] Performed By: #### 1 5061-5 #### [facility] CLIA [id number] [address] [place] [address] [place] Monocytes (Bld) [#/Vol] 0.61 10*3/uL Normal <0.87 [facility] Comment on above: Order Comment: Speci men Type: BLOOD SPECIMEN Ordering Facility: [facility] Address: [address] [place] [address] Performed By: #### 1 5061-5 #### [facility] CLIA [id number] [address] [place] [address] [place] Monocytes/100 WBC (Bld) 11.2 % Normal [facility] Comment on above: Order Comment: Speci men Type: BLOOD SPECIMEN Ordering Facility: [facility] Address: [address] [place] [address] Performed By: #### 1 5061-5 #### [facility] CLIA [id number] [address] [place] [address] [place] Neutrophils (Bld) [#/Vol] 3.72 10*3/uL Normal 1.45-7.50 [facility] Comment on above: Order Comment: Speci men Type: BLOOD SPECIMEN Ordering Facility: [facility] Address: [address] [place] [address] Performed By: #### 1 5061-5 #### [facility] CLIA [id number] [address] [place] [address] [place] Neutrophils/100 WBC (Bld) 68.2 % Normal [facility] Comment on above: Order Comment: Speci men Type: BLOOD SPECIMEN Ordering Facility: [facility] Address: [address] [place] [address] Performed By: #### 1 5061-5 #### [facility] CLIA [id number] [address] [place] [address] [place] Nucleated RBC (Bld) [#/Vol] 10*3/uL Normal <0.01 [facility] Comment on above: Order Comment: Speci men Type: BLOOD SPECIMEN Ordering Facility: [facility] Address: [address] [place] [address] Performed By: #### 1 5061-5 #### [facility] CLIA [id number] [address] [place] [address] [place] Nucleated RBC/100 WBC (Bld) [Ratio] 0.0 /100 WBC Normal [facility] Comment on above: Order Comment: Speci men Type: BLOOD SPECIMEN Ordering Facility: [facility] Address: [address] [place] [address] Performed By: #### 1 5061-5 #### [facility] CLIA [id number] [address] [place] [address] [place] Platelet mean volume (Bld) [Entitic vol] 9.5 fL Normal 9.0-12.7 [facility] Comment on above: Order Comment: Speci men Type: BLOOD SPECIMEN Ordering Facility: [facility] Address: [address] [place] [address] Performed By: #### 1 5061-5 #### [facility] CLIA [id number] [address] [place] [address] [place] Platelets (Bld) [#/Vol] 275 10*3/uL Normal 150-400 [facility] Comment on above: Order Comment: Speci men Type: BLOOD SPECIMEN Ordering Facility: [facility] Address: [address] [place] [address] Performed By: #### 1 5061-5 #### [facility] CLIA [id number] [address] [place] [address] [place] RBC (Bld) [#/Vol] 3.12 10*6/uL Low 3.90-5.20 [facility] Comment on above: Order Comment: Speci men Type: BLOOD SPECIMEN Ordering Facility: [facility] Address: [address] [place] [address] Performed By: #### 1 5061-5 #### [facility] CLIA [id number] [address] [place] [address] [place] WBC (Bld) [#/Vol] 5.46 10*3/uL Normal 3.70-11.00 [facility] Comment on above: Order Comment: Speci men Type: BLOOD SPECIMEN Ordering Facility: [facility] Address: [address] [place] [address] Performed By: #### 1 5061-5 #### [facility] CLIA [id number] [address] [place] [address] [place] CNOVSPon 07-08-2025 CNOVSP Visit (SP) Office ([place]) -------- JEMALEMELIAN ([id number]) 1940 F Date Time Provider Department 07/08/25 [...] HISTORY Proble (more content not included)... Normal [facility]2025 [facility] -------- LASHAUN JOAQUIN ([id number]) 1940 F Date Time Provider Department 07/08/25 PAOLO CASILLAS [facility] During your visit today, we recorded the following information about you: Kayla Arriaga 07/08/2025 11:24 AM Signed Please call Her daughter Marianna with today's lab results. [phone] Yolanda Cobian RN 07/10/2025 9:17 AM Signed [...] Status:Closed by YOLANDA COBIAN on 07/10/25 Normal [facility] Comprehensive metabolic 2000 panelon 07-08-2025 Albumin [Mass/Vol] 3.6 g/dL Low 3.9-4.9 [facility] Comment on above: Order Comment: Speci men Type: BLOOD SPECIMEN Ordering Facility: [facility] Address: [address] [place] [address] Performed By: #### 2 4323-8 #### [facility] CLIA [id number] [address] [place] [address] [place] ALP [Catalytic activity/Vol] 48 U/L Normal 34-123 [facility] Comment on above: Order Comment: Speci men Type: BLOOD SPECIMEN Ordering Facility: [facility] Address: [address] [place] [address] Performed By: #### 2 4323-8 #### [facility] CLIA [id number] [address] [place] [address] [place] ALT [Catalytic activity/Vol] 13 U/L Normal 7-38 [facility] Comment on above: Order Comment: Speci men Type: BLOOD SPECIMEN Ordering Facility: [facility] Address: [address] [place] [address] Performed By: #### 2 4323-8 #### [facility] CLIA [id number] [address] [place] [address] [place] Anion gap [Moles/Vol] 11 mmol/L Normal 8-15 [facility] Comment on above: Order Comment: Speci men Type: BLOOD SPECIMEN Ordering Facility: [facility] Address: [address] [place] [address] Performed By: #### 2 4323-8 #### [facility] CLIA [id number] [address] [place] [address] [place] AST [Catalytic activity/Vol] 22 U/L Normal 13-35 [facility] Comment on above: Order Comment: Speci men Type: BLOOD SPECIMEN Ordering Facility: [facility] Address: [address] [place] [address] Performed By: #### 2 4323-8 #### [facility] CLIA [id number] [address] [place] [address] [place] Bilirubin [Mass/Vol] 0.3 mg/dL Normal 0.2-1.3 [facility] Comment on above: Order Comment: Speci men Type: BLOOD SPECIMEN Ordering Facility: [facility] Address: [address] [place] [address] Performed By: #### 2 4323-8 #### [facility] CLIA [id number] [address] [place] [address] [place] Calcium [Mass/Vol] 8.9 mg/dL Normal 8.5-10.2 [facility] Comment on above: Order Comment: Speci men Type: BLOOD SPECIMEN Ordering Facility: [facility] Address: [address] [place] [address] Performed By: #### 2 4323-8 #### [facility] CLIA [id number] [address] [place] [address] [place] Chloride [Moles/Vol] 106 mmol/L Normal 98-107 [facility] Comment on above: Order Comment: Speci men Type: BLOOD SPECIMEN Ordering Facility: [facility] Address: [address] [place] [address] Performed By: #### 2 4323-8 #### [facility] CLIA [id number] [address] [place] [address] [place] CO2 [Moles/Vol] 24 mmol/L Normal 22-30 [facility] Comment on above: Order Comment: Speci men Type: BLOOD SPECIMEN Ordering Facility: [facility] Address: [address] [place] [address] Performed By: #### 2 4323-8 #### [facility] CLIA [id number] [address] [place] [address] [place] Creatinine [Mass/Vol] 1.65 mg/dL High 0.58-0.96 [facility] Comment on above: Order Comment: Preet patino Type: BLOOD SPECIMEN Ordering Facility: [facility] Address: [address] [place] [address] Performed By: #### 2 4323-8 #### [facility] CLIA [id number] [address] [place] [address] [place] eGFRcr SerPlBld CKD-EPI 2020 31 mL/min/1.73m??? Low >=60 [facility] Comment on above: Order Comment: Preet patino Type: BLOOD SPECIMEN Ordering Facility: [facility] Address: [address] [place] [address] Result Comment: Shoshana mated Glomerular Filtration Rate [...] GFR. Performed By: #### 2 4323-8 #### [facility] CLIA [id number] [address] [place] [address] [place] Glucose [Mass/Vol] 100 mg/dL High 74-99 [facility] Comment on above: Order Comment: Preet patino Type: BLOOD SPECIMEN Ordering Facility: [facility] Address: [address] [place] [address] Result Comment: The [place] [employer] (ADA) [...] 1). Performed By: #### 2 4323-8 #### [facility] CLIA [id number] [address] [place] [address] [place] Potassium [Moles/Vol] 5.3 mmol/L High 3.7-5.1 [facility] Comment on above: Order Comment: Speci men Type: BLOOD SPECIMEN Ordering Facility: [facility] Address: [address] [place] [address] Performed By: #### 2 4323-8 #### [facility] CLIA [id number] [address] [place] [address] [place] Protein [Mass/Vol] 5.8 g/dL Low 6.3-8.0 [facility] Comment on above: Order Comment: Sarathi men Type: BLOOD SPECIMEN Ordering Facility: [facility] Address: [address] [place] [address] Performed By: #### 2 4323-8 #### [facility] CLIA [id number] [address] [place] [address] [place] Sodium [Moles/Vol] 141 mmol/L Normal 136-144 [facility] Comment on above: Order Comment: Speci men Type: BLOOD SPECIMEN Ordering Facility: [facility] Address: [address] [place] [address] Performed By: #### 2 4323-8 #### [facility] CLIA [id number] [address] [place], [place] [address] [place] Urea nitrogen [Mass/Vol] 27 mg/dL High 7-21 [facility] Comment on above: Order Comment: Speci men Type: BLOOD SPECIMEN Ordering Facility: [facility] Address: [address] [place] [address] Performed By: #### 2 4323-8 #### [facility] CLIA [id number] [address] [place] [address] [place] Glomerular filtration rate [ Volume Rate/Area] in Serum, Plasma or Blood by CreatinineOrdered By: Nathan Hathaway on 07-08-2025 Glomerular filtration rate [Volume Rate/Area] in Serum, Plasma or Blood by Creatinine 31 mL/min/1.73m??? Low >=60 [facility] Comment on above: Estimated Glomerular Filtration Rate [...] monoclonal gammopathy. Clinical correlation is necessary. Normal [facility] Comment on above: Order Comment: Speci men Type: BLOOD SPECIMEN Ordering Facility: [facility] Address: [address] [place] [address] Performed By: #### 1 5061-5 #### [facility] CLIA [id number] [address] [place] [address] [place] MPA RESULT A poorly defined reg ion of restricted mobility is present that may represent an M protein. Abnormal No M protein is identified. [facility] Comment on above: Order Comment: Speci men Type: BLOOD SPECIMEN Ordering Facility: [facility] Address: [address] [place] [address] Performed By: #### 1 5061-5 #### [facility] CLIA [id number] [address] [place] [address] [place] STAFF REVIEW (MPA) Reviewed by Dr. Matty David MD Normal [facility] Comment on above: Order Comment: Speci men Type: BLOOD SPECIMEN Ordering Facility: [facility] Address: [address] [place] [address] Performed By: #### 1 5061-5 #### [facility] CLIA [id number] [address] [place] [address] [place] IMMUNOGLOBULINS,IGG,IGA,IGMo n 07-08-2025 IgA [Mass/Vol] 64 mg/dL Low 70-400 [facility] Comment on above: Order Comment: Speci men Type: BLOOD SPECIMEN Ordering Facility: [facility] Address: [address] [place] [address] Performed By: #### S ERIMM #### [facility] CLIA [id number] [address] [place] [address] [place] IgG [Mass/Vol] 280 mg/dL Low 700-1600 [facility] Comment on above: Order Comment: Speci men Type: BLOOD SPECIMEN Ordering Facility: [facility] Address: [address] [place] [address] Performed By: #### S ERIMM #### [facility] CLIA [id number] [address] [place] [address] [place] IgM [Mass/Vol] 317 mg/dL High 40-230 [facility] Comment on above: Order Comment: Speci men Type: BLOOD SPECIMEN Ordering Facility: [facility] Address: [address] [place] [address] Performed By: #### S ERIMM #### [facility] CLIA [id number] [address] [place], [place] [address] [place] IgA [Mass/volume] in Serum o r PlasmaOrdered By: Fnany Bedoya on 07-08-2025 IgA [Mass/Vol] 64 mg/dL Low 70-400 [facility] IgG [Mass/volume] in Serum o r PlasmaOrdered By: Fanny Alvarengaod on 07-08-2025 IgG [Mass/Vol] 280 mg/dL Low 700-1600 [facility] IgM [Mass/volume] in Serum o r PlasmaOrdered By: Fanny Ethan on 07-08-2025 IgM [Mass/Vol] 317 mg/dL High 40-230 [facility] Immunoglobulin light chains. kappa.free [Mass/volume] in SerumOrdered By: Nathan Hathaway on 07-08-2025 Immunoglobulin light chains.kappa.free (S) [Mass/Vol] 300.9 mg/L High 3.3-19.4 [facility] Comment on above: Rarely, increased se rum free light chains levels may not be detected or accurately quantified due to prozone phenomenon or in high viscosity samples using this immunoturbidimetric assay. Correlation with other laboratory results and clinical findings is recommended. The [place] Free Light Chain was performed using the Binding Site Optilite immunoturbidimetric method. Result obtained with different assay methods or kits cannot be used interchangeably. Immunoglobulin light chains. kappa.free/Immunoglobulin light chains.lambda.free [MassOrdered By: Nathan Hathaway on 07-08-2025 Immunoglobulin light chains.kappa.free/Immu noglobulin light chains.lambda.free (S) [Mass ratio] 12.64 High 0.26-1.65 [facility] Immunoglobulin light chains. lambda.free [Mass/volume] in Serum or PlasmaOrdered By: Nathan Hathaway on 07-08-2025 Immunoglobulin light chains.lambda.free [Mass/Vol] 23.8 mg/L 5.7-26.3 [facility] Comment on above: Rarely, increased se rum [...] chains.kappa.free (S) [Mass/Vol] 300.9 mg/L High 3.3-19.4 [facility] Comment on above: Order Comment: Speci carey Type: BLOOD SPECIMEN Ordering Facility: [facility] Address: [address] [place] [address] Result Comment: Rare ly, increased serum free light chains levels may not be detected or accurately quantified due to prozone phenomenon or in high viscosity samples using this immunoturbidimetric assay. Correlation with other laboratory results and clinical findings is recommended. The [place] Free Light Chain was performed using the Binding Site Optilite immunoturbidimetric method. Result obtained with different assay methods or kits cannot be used interchangeably. Performed By: #### K LFRS #### [facility] CLIA [id number] [address] [place] [address] [place] Immunoglobulin light chains.kappa/Immunoglo bulin light chains.lambda (S) [Mass ratio] 12.64 High 0.26-1.65 [facility] Comment on above: Order Comment: Speci [facility] Type: BLOOD SPECIMEN Ordering Facility: [facility] Address: [address] [place] [address] Performed By: #### K LFRS #### [facility] CLIA [id number] [address] [place] [address] [place] Immunoglobulin light chains.lambda.free [Mass/Vol] 23.8 mg/L Normal 5.7-26.3 [facility] Comment on above: Order Comment: [facility] Type: BLOOD SPECIMEN Ordering Facility: [facility] Address: [address] [place] [address] Result Comment: Rare ly, increased serum free [...] interchangeably. Performed By: #### K LFRS #### [facility] CLIA [id number] [facility] [place] [place] [address] [place] Laboratory - Chemistry and C hemistry - challengeOrdered By: Nathan Hathaway on 07-08-2025 Albumin [Mass/Vol] 3.6 g/dL Low 3.9-4.9 [facility] ALP [Catalytic activity/Vol] 48 U/L 34-123 [facility] ALT [Catalytic activity/Vol] 13 U/L 7-38 [facility] AST [Catalytic activity/Vol] 22 U/L 13-35 [facility] Bilirubin [Mass/Vol] 0.3 mg/dL 0.2-1.3 [facility] Calcium [Mass/Vol] 8.9 mg/dL 8.5-10.2 [facility] Chloride [Moles/Vol] 106 mmol/L 98-107 [facility] CO2 [Moles/Vol] 24 mmol/L 22-30 [facility] Creatinine [Mass/Vol] 1.65 mg/dL High 0.58-0.96 [facility] Glucose [Mass/Vol] 100 mg/dL High 74-99 [facility] Comment on above: The [place] Diabete s Association (ADA) provides guidance for [...] [place] Diabetes [employer]. Diabetes Care. 2016.39(Suppl 1). Potassium [Moles/Vol] 5.3 mmol/L High 3.7-5.1 [facility] Protein [Mass/Vol] 0.00 g/dL <=0.00 [facility] Sodium [Moles/Vol] 141 mmol/L 136-144 [facility] Urea nitrogen [Mass/Vol] 27 mg/dL High 7-21 [facility] No Panel InformationOrdered By: Nathan Hathaway on 07-08-2025 Immunofixation Interpretation [facility] Leuk/Lymph Sign Pathologist (Misc) Reviewed by Dr. Jennifer David MD [facility] Miscellaneous Test [address] [facility] Comment on above: Not Applicable. Miscellaneous Test Comment Reviewed by Dr. Jennifer David MD [facility] Protein Electrophoresis Interpret [facility] Protein Electrophoresis Note No definitive M protein is identified on protein electrophoresis. No definitive M protein is identified on protein electrophor esis. [facility] Serum Immunofixation Abnormal No M protein is identified. [facility] PROTEIN ELECTROPHORESIS SERU M (P)on 07-08-2025 Albumin [Mass/Vol] 3.33 g/dL Low 3.43-5.41 [facility] Comment on above: Order Comment: Speci men Type: BLOOD SPECIMEN Ordering Facility: [facility] Address: [address] [place] [address] Performed By: #### 1 5061-5 #### [facility] CLIA [id number] [address] [place] [address] [place] Alpha 1 globulin Elph [Mass/Vol] 0.42 g/dL Normal 0.18-0.43 [facility] Comment on above: Order Comment: Speci men Type: BLOOD SPECIMEN Ordering Facility: [facility] Address: [address] [place] [address] Performed By: #### 1 5061-5 #### [facility] CLIA [id number] [address] [place] [address] [place] Alpha 2 globulin Elph [Mass/Vol] 0.86 g/dL Normal 0.42-0.98 [facility] Comment on above: Order Comment: Speci men Type: BLOOD SPECIMEN Ordering Facility: [facility] Address: [address] [place] [address] Performed By: #### 1 5061-5 #### [facility] CLIA [id number] [address] [place] [address] [place] Beta globulin Elph [Mass/Vol] 0.53 g/dL Low 0.61-1.17 [facility] Comment on above: Order Comment: Speci men Type: BLOOD SPECIMEN Ordering Facility: [facility] Address: [address] [place] [address] Performed By: #### 1 5061-5 #### [facility] CLIA [id number] [address] [place] [address] [place] Gamma globulin Elph [Mass/Vol] 0.37 g/dL Low 0.53-1.51 [facility] Comment on above: Order Comment: Speci men Type: BLOOD SPECIMEN Ordering Facility: [facility] Address: [address] [place] [address] Performed By: #### 1 5061-5 #### [facility] CLIA [id number] [address] [place] [address] STATES OF [facility] INTERPRETATION COMMENT FOR PROTEIN ELECTROPHORESIS Hypogammaglobulinemia is present, which can be seen in the setting of monoclonal gammopathy. If clinically indicated, monoclonal protein analysis and serum free light chain analysis are suggested to evaluate further for monoclonal gammopathy. Normal [facility] Comment on above: Order Comment: Preet patino Type: BLOOD SPECIMEN Ordering Facility: [facility] Address: [address] [place] [address] Performed By: #### 1 5061-5 #### [facility] CLIA [id number] [address] [place] [address] [place] M-PROTEIN LOCATION Normal [facility] Comment on above: Order Comment: Sarathi carey Type: BLOOD SPECIMEN Ordering Facility: [facility] Address: [address] [place] [address] Result Comment: Not Applicable. Performed By: #### 1 5061-5 #### [facility] CLIA [id number] [address] [place] [address] [place] Protein Fractions [Interp] No definitive M protein is identified on protein electrophoresis. Normal No definitive M protein is identified on protein electrophor esis. [facility] Comment on above: Order Comment: Speci men Type: BLOOD SPECIMEN Ordering Facility: [facility] Address: [address] [place] [address] Performed By: #### 1 5061-5 #### [facility] CLIA [id number] [address] [place] [address] [place] Protein.monoclonal Elph [Mass/Vol] 0.00 g/dL Normal <=0.00 [facility] Comment on above: Order Comment: Speci men Type: BLOOD SPECIMEN Ordering Facility: [facility] Address: [address] [place] [address] Performed By: #### 1 5061-5 #### [facility] CLIA [id number] [address] [place] [address] [place] SPE STAFF REVIEW Reviewed by Dr. Matty David MD [facility] Comment on above: Order Comment: Speci men Type: BLOOD SPECIMEN Ordering Facility: [facility] Address: [address] [place] [address] Performed By: #### 1 5061-5 #### [facility] CLIA [id number] [address] [place] [address] [place] Prot SerPl-mCncon 07-08-2025 Protein [Mass/Vol] 5.5 g/dL Low 6.3-8.0 [facility] Comment on above: Order Comment: Speci men Type: BLOOD SPECIMEN Ordering Facility: [facility] Address: [address] [place] [address] Performed By: #### 2 885-2 #### [facility] CLIA [id number] [address] [place] [address] [place] Protein [Mass/volume] in Ser um or PlasmaOrdered By: Fanny Bedoya on 07-08-2025 Protein [Mass/Vol] 5.5 g/dL Low 6.3-8.0 [facility] Serum or plasma alpha 1 glob ulin measurement by electrophoresis (mass/volume)Ordered By: Nathan Hathaway on 07-08-2025 Alpha 1 globulin Elph [Mass/Vol] 0.42 g/dL 0.18-0.43 [facility] Serum or plasma alpha 2 glob ulin measurement by electrophoresis (mass/volume)Ordered By: Nathan Hathaway on 07-08-2025 Alpha 2 globulin Elph [Mass/Vol] 0.86 g/dL 0.42-0.98 [facility] Serum or plasma anion gap de terminationOrdered By: Nathan Hathaway on 07-08-2025 Anion gap [Moles/Vol] 11 mmol/L 8-15 [facility] Serum or plasma beta globuli n measurement by electrophoresis (mass/volume)Ordered By: Nathan Hathaway on 07-08-2025 Beta globulin Elph [Mass/Vol] 0.53 g/dL Low 0.61-1.17 [facility] Serum or plasma gamma globul in measurement by electrophoresis (mass/volume)Ordered By: Nathan Hathaway on 07-08-2025 Gamma globulin Elph [Mass/Vol] 0.37 g/dL Low 0.53-1.51 [facility] CNPNon 07-06-2025 DANIELAN Telephone (JONATHON) -------- LASHAUN JOAQUIN ([id number]) 1940 F Date Time Provider Department 07/06/25 [...] Date Reviewed: 11/07/2023 Reviewed by: Paolo Casillas APRN.INTERPRETIVE PROGRAM COORDINATOR - Fully Assessed Reason for Visit: Lab Orders [1688] Cmt: nt Primary Visit Diagnosis:Abnormal SPEP [R77.8] Order(s):COMPLETE BLOOD COUNT AND DIFFERENTIAL [SQCBCDIF] Order #: [id number] FUTURE COMPREHENSIVE METABOLIC PANEL [SQCMP] Order #: [id number] FUTURE PROTEIN ELECTROPHORESIS SERUM W/INTERP [SQSEPG] Order #: [id number] FUTURE MONOCLONAL PROTEIN, SERUM (BLOOD) [SQSERMPA] Order #: [id number] FUTURE Prescriptions as of 07/06/2025 - carvedilol [...] Status:Closed by FANNY BEDOYA on 07/06/25 Normal [facility] Microalbumin [Mass/volume] i n UrineOrdered By: Nathan Hathaway on 06-24-2025 Albumin DL <= 20 mg/L (U) [Mass/Vol] 20.1 mg/dL <=30.0 [facility] No Panel InformationOrdered By: Nathan Hathaway on 06-24-2025 Urine Random Creatinine 84.52 mg/dL 20.00-300.0 0 [facility] Urine microalbumin/creatinin e mass ratioOrdered By: Nathan Hathaway on 06-24-2025 Albumin/Creatinine DL <= 20 mg/L (U) [Mass ratio] 237.8 mg/g High 0.0-29.9 [facility] Comment on above: NO MICROALBUMINURIA 0-29 MG/GCLINICAL MICROALBUMINURIA 30-300 MG/GMACROALBUMINURIA >300 MG/G Albumin [Mass/volume] in Ser um or PlasmaOrdered By: Nathan Hathaway on 06-23-2025 Albumin [Mass/Vol] 3.2 g/dL 2.9-4.4 [facility] Basophils Auto (Bld) [#/Vol] Ordered By: Nathan Hathaway on 06-23-2025 Basophils (Bld) [#/Vol] 0.0 10 3/uL 0.0-0.1 [facility] Basophils/100 WBC Auto (Bld) Ordered By: Nathan Hathaway on 06-23-2025 Basophils/100 WBC (Bld) 0.7 % 0.2-2.0 [facility] Cholesterol in LDL Calc [Mas s/Vol]Ordered By: Nathan Hathaway on 06-23-2025 Cholesterol in LDL [Mass/Vol] 60.2 mg/dL [facility] Comment on above: <100 mg/dl [id number] 0-129 mg/dl NEAR OR ABOVE [id number] mg/dl BORDERLINE VENQ755-194 mg/dl HIGH>190 mg/dl VERY HIGH Cholesterol in VLDL Calc [Ma ss/Vol]Ordered By: Nathan Hathaway on 06-23-2025 Cholesterol in VLDL [Mass/Vol] 17.8 mg/dL [facility] Eosinophils/100 WBC Auto (Bl d)Ordered By: Nathan Hathaway on 06-23-2025 Eosinophils/100 WBC (Bld) 2.7 % 0.9-7.0 [facility] Erythrocyte distribution wid th Auto (RBC) [Ratio]Ordered By: Nathan Hathaway on 06-23-2025 Erythrocyte distribution width (RBC) [Ratio] 13.8 % 11.0-15.0 [facility] Globulin Calc (S) [Mass/Vol] Ordered By: Nathan Hathaway 06-23-2025 Globulin (S) [Mass/Vol] 3.3 g/dL [facility] Glomerular filtration rate ( GFR) estimation in non- AmericanOrdered By: Nathan Hathaway on 06-23-2025 GFR/1.73 sq M.predicted among non-blacks MDRD (S/P/Bld) [Vol rate/Area] 35 mL/min/{1.73_m2} Low >=60 mL/min/1.73 m 2 [facility] Hematocrit Auto (Bld) [Volum e fraction]Ordered By: Nathan Hathaway 06-23-2025 Hematocrit (Bld) [Volume fraction] 28.3 % Low 36.0-48.0 [facility] Hemoglobin [Mass/volume] in BloodOrdered By: Nathan Hathaway 06-23-2025 Hemoglobin (Bld) [Mass/Vol] 9.3 g/dL Low 12.0-16.0 [facility] IgA [Mass/volume] in Serum o r PlasmaOrdered By: Nathan Hathaway on 06-23-2025 IgA [Mass/Vol] 62 mg/dL Abnormal 64-422 [facility] IgG [Mass/volume] in Serum o r PlasmaOrdered By: Nathan Hathaway on 06-23-2025 IgG [Mass/Vol] 330 mg/dL Abnormal 586-1602 [facility] IgM [Mass/volume] in Serum o r PlasmaOrdered By: Nathan Hathaway on 06-23-2025 IgM [Mass/Vol] 325 mg/dL Abnormal 26-217 [facility] Immunoglobulin light chains. kappa.free [Mass/volume] in SerumOrdered By: Nathan Hathaway on 06-23-2025 Immunoglobulin light chains.kappa.free (S) [Mass/Vol] 224.6 mg/L Abnormal 3.3-19.4 [facility] Immunoglobulin light chains. kappa.free/Immunoglobulin light chains.lambda.free [MassOrdered By: Nathan Hathaway on 06-23-2025 Immunoglobulin light chains.kappa.free/Immu noglobulin light chains.lambda.free (S) [Mass ratio] 10.59 Abnormal 0.26-1.65 [facility] Comment on above: Performed at: [place] [id number] Director: Carlos Witt PhD, Phone: [phone] Immunoglobulin light chains. lambda.free [Mass/volume] in Serum or PlasmaOrdered By: Nathan Hathaway on 06-23-2025 Immunoglobulin light chains.lambda.free [Mass/Vol] 21.2 mg/L 5.7-26.3 [facility] Iron binding capacity [Mass/ volume] in Serum or PlasmaOrdered By: Nathan Hathaway on 06-23-2025 Iron binding capacity [Mass/Vol] 245.0 ug/dL Low 250.0-450.0 [facility] Iron saturation [Mass Fracti on] in Serum or PlasmaOrdered By: Nathan Hathaway on 06-23-2025 Iron saturation [Mass fraction] 14.3 % [facility] Laboratory - Chemistry and C hemistry - challengeOrdered By: Nathan Hathaway on 06-23-2025 ALP [Catalytic activity/Vol] 47 U/L 46-116 [facility] ALT [Catalytic activity/Vol] 18 U/L 14-59 [facility] AST [Catalytic activity/Vol] 18 U/L 15-37 [facility] Bilirubin [Mass/Vol] 0.5 mg/dL 0.2-1.0 [facility] Calcium [Mass/Vol] 8.9 mg/dL 8.5-10.1 [facility] Chloride [Moles/Vol] 104 mmol/L 98-107 [facility] Cholesterol [Mass/Vol] 123 mg/dL <=200 [facility] Cholesterol in HDL [Mass/Vol] 45 mg/dL 40-60 [facility] Comment on above: > or =60 mg/dl - LOW CARDIOVASCULAR RISK<40 mg/dl - HIGH CARDIOVASCULAR RISK CO2 [Moles/Vol] 30.2 mmol/L 21.0-32.0 [facility] Cobalamin (Vitamin B12) [Mass/Vol] 1089 pg/mL 232-1245 [facility] Comment on above: Performed at: [address] [id number] Director: Carlos Witt PhD, Phone: [phone] Creatinine [Mass/Vol] 1.45 mg/dL High 0.55-1.02 [facility] Ferritin [Mass/Vol] 176.0 ng/mL 8.0-252.0 [facility] Free T4 [Mass/Vol] 0.97 ng/dL 0.76-1.46 [facility] GFR/1.73 sq M.predicted MDRD (S/P/Bld) [Vol rate/Area] 42 mL/min/{1.73_m2} Low >=60 mL/min/1.73 m 2 [facility] Glucose [Mass/Vol] 94 mg/dL 74-106 [facility] Iron [Mass/Vol] 35.0 ug/dL Low 50.0-170.0 [facility] Potassium [Moles/Vol] 4.3 mmol/L 3.5-5.1 [facility] Protein [Mass/Vol] 0.2 g/dL Abnormal Not Observed [facility] Protein [Mass/Vol] 6.5 g/dL 6.4-8.2 [facility] Sodium [Moles/Vol] 142 mmol/L 136-145 [facility] Triglyceride [Mass/Vol] 89 mg/dL <=150 [facility] TSH Qn 5.101 m[IU]/L High 0.358-3.740 [facility] Urea nitrogen [Mass/Vol] 22.0 mg/dL High 7.0-18.0 [facility] Urea nitrogen/Creatinine [Mass ratio] 15.2 mg/mg [facility] Laboratory - Hematology and Cell countsOrdered By: Nathan Hathaway on 06-23-2025 Immature granulocytes/100 WBC (Bld) 0.4 % 0.0-0.5 [facility] Leukocytes [#/volume] correc miguel for nucleated erythrocytes in Blood by Automated counOrdered By: Nathan Hathaway on 06-23-2025 WBC corrected for nucl RBC Auto (Bld) [#/Vol] 5.6 10 3/uL 4.0-11.0 [facility] Lymphocytes Auto (Bld) [#/Vo l]Ordered By: Nathan Hathaway on 06-23-2025 Lymphocytes (Bld) [#/Vol] 0.8 10 3/uL Low 1.2-3.8 [facility] Lymphocytes/100 WBC Auto (Bl d)Ordered By: Nathan Hathaway on 06-23-2025 Lymphocytes/100 WBC (Bld) 14.4 % Low 20.5-60.0 [facility] MCH Auto (RBC) [Entitic mass ]Ordered By: Nathan Hathaway on 06-23-2025 MCH (RBC) [Entitic mass] 29.0 pg 26.7-34.0 [facility] MCHC Auto (RBC) [Mass/Vol]Or dered By: Nathan Hathaway on 06-23-2025 MCHC (RBC) [Mass/Vol] 32.9 g/dL 29.9-35.2 [facility] MCV Auto (RBC) [Entitic vol] Ordered By: Nathan Hathaway on 06-23-2025 MCV (RBC) [Entitic vol] 88.2 fL 81.0-99.0 [facility] Monocytes Auto (Bld) [#/Vol] Ordered By: Nathan Hathaway on 06-23-2025 Monocytes (Bld) [#/Vol] 0.5 10 3/uL 0.3-0.8 [facility] Monocytes/100 WBC Auto (Bld) Ordered By: Nathan Hathaway on 06-23-2025 Monocytes/100 WBC (Bld) 8.7 % 1.7-12.0 [facility] Neutrophils Auto (Bld) [#/Vo l]Ordered By: Nathan Hathaway on 06-23-2025 Neutrophils (Bld) [#/Vol] 4.1 10 3/uL 1.4-6.5 [facility] Neutrophils/100 WBC Auto (Bl d)Ordered By: Nathan Hathaway on 06-23-2025 Neutrophils/100 WBC (Bld) 73.1 % 43.0-75.0 [facility] No Panel InformationOrdered By: Nathan Hathaway on 06-23-2025 Eosinophils # (Auto) 0.2 10 3/uL 0.0-0.7 [facility] Folate 17.90 ng/mL 8.60-58.90 [facility] Immature Granulocyte # (Auto) 0.02 10 3/uL 0.00-0.03 [facility] Protein Electrophoresis Note Comment . [facility] Comment on above: Protein electrophore sis scan will follow via computer,mail, or wood model builder delivery. Platelet mean volume Auto (B ld) [Entitic vol]Ordered By: Nathan Hathaway on 06-23-2025 Platelet mean volume (Bld) [Entitic vol] 10.2 fL 9.5-13.5 [facility] Platelets Auto (Bld) [#/Vol] Ordered By: Nathan Hathaway on 06-23-2025 Platelets (Bld) [#/Vol] 270 10 3/uL 150-450 [facility] Protein [Mass/volume] in Ser um or PlasmaOrdered By: Nathan Hathaway on 06-23-2025 Protein [Mass/Vol] 5.7 g/dL Abnormal 6.0-8.5 [facility] RBC Auto (Bld) [#/Vol]Ordere d By: Nathan Hathaway on 06-23-2025 RBC (Bld) [#/Vol] 3.21 10 6/uL Low 4.20-5.40 [facility] Serum globulin measurement ( mass/volume)Ordered By: Nathan Hathaway on 06-23-2025 Globulin (S) [Mass/Vol] 2.5 g/dL 2.2-3.9 [facility] Serum or plasma albumin/glob ulin mass ratioOrdered By: Nathan Hathaway on 06-23-2025 Albumin/Globulin [Mass ratio] 1.0 {ratio} [facility] Albumin/Globulin [Mass ratio] 1.3 {ratio} 0.7-1.7 [facility] Serum or plasma alpha 1 glob ulin measurement by electrophoresis (mass/volume)Ordered By: Nathan Hathaway on 06-23-2025 Alpha 1 globulin Elph [Mass/Vol] 0.3 g/dL 0.0-0.4 [facility] Serum or plasma alpha 2 glob ulin measurement by electrophoresis (mass/volume)Ordered By: Nathan Hathaway on 06-23-2025 Alpha 2 globulin Elph [Mass/Vol] 1.0 g/dL 0.4-1.0 [facility] Serum or plasma anion gap de terminationOrdered By: Nathan Hathaway on 06-23-2025 Anion gap [Moles/Vol] 12.1 mmol/L [facility] Serum or plasma beta globuli n measurement by electrophoresis (mass/volume)Ordered By: Nathan Hathaway on 06-23-2025 Beta globulin Elph [Mass/Vol] 0.7 g/dL 0.7-1.3 [facility] Serum or plasma gamma globul in measurement by electrophoresis (mass/volume)Ordered By: Nathan Hathaway on 06-23-2025 Gamma globulin Elph [Mass/Vol] 0.5 g/dL 0.4-1.8 [facility] Serum or plasma immunoelectr ophoresis interpretationOrdered By: Nathan Hathaway on 06-23-2025 Interpretation IEP [Interp] Comment Abnormal . [facility] Comment on above: Immunofixation shows IgM monoclonal protein with kappalight chain specificity. Serum or plasma total choles terol/high density lipoprotein (HDL) cholesterol mass ratOrdered By: Nathan Hathaway on 06-23-2025 Cholesterol.total/Chol esterol in HDL [Mass ratio] 2.7 {ratio} [facility] Comment on above: 3.3 - 4.4 LOW RISK4. 4 - 7.1 AVERAGE RISK7.1 - 11.0 MODERATE RISK>11.0 HIGH RISK Estimated glomerular filtrat ion rate (GFR) non- Americanon 03-18-2025 GFR/1.73 sq M.predicted among non-blacks MDRD (S/P/Bld) [Vol rate/Area] Estimated glomerular filtration rate (GFR) non- Low >=60 mL/min/1.73 m 2 [facility] GFR/1.73 sq M.predicted among non-blacks MDRD (S/P/Bld) [Vol rate/Area] 31 mL/min/{1.73_m2} Low >=60 mL/min/1.73 m 2 [facility] Laboratory - Chemistry and C hemistry - challengeon 03-18-2025 Calcium [Mass/Vol] 8.9 mg/dL 8.5-10.1 [facility] Chloride [Moles/Vol] 105 mmol/L 98-107 [facility] CO2 [Moles/Vol] 30.7 mmol/L 21.0-32.0 [facility] Creatinine [Mass/Vol] 1.60 mg/dL High 0.55-1.02 [facility] GFR/1.73 sq M.predicted MDRD (S/P/Bld) [Vol rate/Area] 37 mL/min/{1.73_m2} Low >=60 mL/min/1.73 m 2 [facility] Glucose [Mass/Vol] 112 mg/dL High 74-106 [facility] Potassium [Moles/Vol] 4.4 mmol/L 3.5-5.1 [facility] Sodium [Moles/Vol] 145 mmol/L 136-145 [facility] TSH Qn 3.657 m[IU]/L 0.358-3.740 [facility] Urea nitrogen [Mass/Vol] 33.0 mg/dL High 7.0-18.0 [facility] Urea nitrogen/Creatinine [Mass ratio] 20.6 mg/mg [facility] Serum or plasma anion gap de terminationon 03-18-2025 Anion gap [Moles/Vol] Serum or plasma an ion gap determination [facility] Anion gap [Moles/Vol] 13.7 mmol/L [facility] TRANSTHORACIC ECHO (TTE) COM PLETEon 03-17-2025 TRANSTHORACIC ECHO (TTE) COMPLETE [address], [address] [facility], [place] [address] TRANSTHORACIC ECHOCARDIOGRAM REPORT Patient Name: LASHAUN JOAQUIN Reading Physician: [id number] Bryce Guy MD, [facility] Study Date: 03/17/2025 Ordering Provider: [id number] HOLDEN ROSADO MRN/PID: [id number] Fellow: Nurse: Date of /Age: 11 1940 / Art Manager: Nicolasa taylor RDCS, RVT Gender Assigned at F Additional Staff: : Height: 165.10 cm Admit Date: Weight: 90.72 kg Admission Status: BSA / BMI: 1.98 m2 / 33.28 Department Location: [facility] kg/m2 [facility] [place] Blood Pressure: 120 /64 mmHg Study Type: TRANSTHORACIC ECHO (TTE) COMPLETE Diagnosis/ICD: Essential (primary) hypertension-I10; Palpitations-R00.2 Indication: CAD, PTCA-2022, Edema, Hyperlipidemia, Former Smoker CPT Codes: Echo Complete w Full Doppler-91403 Study Detail: The following Echo studies were [...] Normal Ranges: RV (more content not included)... [facility] Acanthocytes [Presence] in B lood by Light microscopyOrdered By: Jorge L Cruz on 02-12-2025 Acanthocytes LM Ql (Bld) Acanthocytes [Presence] in Blood by Light microscopy [facility] Alanine aminotransferase [En zymatic activity/volume] in Serum or PlasmaOrdered By: Jorge L Cruz on 02-12-2025 ALT [Catalytic activity/Vol] Alanine aminotransferase [Enzymatic activity/volume] in Serum or Plasma 7-52 [facility] Albumin [Mass/volume] in Ser um or Plasma by Bromocresol green (BCG) dye binding methoOrdered By: Jorge L Cruz on 02-12-2025 Albumin BCG dye [Mass/Vol] Albumin [Mass/volume] in Serum or Plasma by Bromocresol green (BCG) dye binding metho 3.5-5.7 [facility] Alkaline phosphatase [Enzyma tic activity/volume] in Serum or PlasmaOrdered By: Jorge L Cruz on 02-12-2025 ALP [Catalytic activity/Vol] Alkaline phosphatase [Enzymatic activity/volume] in Serum or Plasma 34-104 [facility] Anisocytosis LM Ql (Bld)Orde red By: Jorge L Cruz on 02-12-2025 Anisocytosis Ql (Bld) Anisocytosis [Pres ence] in Blood by Light microscopy [facility] Aspartate aminotransferase [ Enzymatic activity/volume] in Serum or PlasmaOrdered By: Jorge L Cruz on 02-12-2025 AST [Catalytic activity/Vol] Aspartate aminotransferase [Enzymatic activity/volume] in Serum or Plasma 13-39 [facility] B-Type Natriuretic Peptideon 02-12-2025 Natriuretic peptide B (Bld) [Mass/Vol] 246.0 pg/mL High 5-100 [facility] Comment on above: Result Comment: PERF ORMED BY: [facility] [address] [facility] [place] [id number] PATHOLOGIST FABRICATION MIG WELDER RAMEZ MONTES M.D. Performed By: #### S CAN CBC, CK, HS TROP, BNP, PT, PTT ####[facility] [address] [place] [address] [facility] Basophils Auto (Bld) [#/Vol] Ordered By: Jorge L Cruz on 02-12-2025 Basophils (Bld) [#/Vol] Automated basophil count 0.0-0.2 [facility] Basophils/100 WBC Auto (Bld) Ordered By: Jorge L Cruz on 02-12-2025 Basophils/100 WBC (Bld) Automated basophil % . [facility] Bilirubin.total [Mass/volume ] in Serum or PlasmaOrdered By: Jorge L Cruz on 02-12-2025 Bilirubin [Mass/Vol] Bilirubin.total [Mass/volume] in Serum or Plasma 0.3-1.0 [facility] Calcium [Mass/volume] in Ser um or PlasmaOrdered By: Jorge L Cruz on 02-12-2025 Calcium [Mass/Vol] Calcium [Mass/volume ] in Serum or Plasma 8.6-10.3 [facility] Carbon dioxide, total [Moles /volume] in Serum or PlasmaOrdered By: Jorge L Cruz on 02-12-2025 CO2 [Moles/Vol] Carbon dioxide, tota l [Moles/volume] in Serum or Plasma 21.0-31.0 [facility] Chloride [Moles/volume] in S courtney or PlasmaOrdered By: Jorge L Cruz on 02-12-2025 Chloride [Moles/Vol] Chloride [Moles/vol ume] in Serum or Plasma 98-107 [facility] Comprehensive Metabolic Pane arnoldo 02-12-2025 Albumin [Mass/Vol] 3.8 g/dL Normal 3.5-5.7 [facility] Comment on above: Performed By: #### T SH3, CMP, MG #### [facility] [address] Albumin/Globulin [Mass ratio] 1.6 {ratio} Normal [facility] Comment on above: Performed By: #### T SH3, CMP, MG #### [facility] [address] [place] [id number] [place] ALP [Catalytic activity/Vol] 43 U/L Normal 34-104 [facility] Comment on above: Performed By: #### T SH3, CMP, MG #### [facility] [address] [place] [id number] [place] ALT [Catalytic activity/Vol] 14 U/L Normal 7-52 [facility] Comment on above: Performed By: #### T SH3, CMP, MG #### [facility] [address] [place] [id number] [facility] Anion gap [Moles/Vol] 11.4 mmol/L Normal 6.0-15.0 [facility] Comment on above: Performed By: #### T SH3, CMP, MG #### [facility] [address] [place] [address] [place] AST [Catalytic activity/Vol] 19 U/L Normal 13-39 [facility] Comment on above: Performed By: #### T SH3, CMP, MG #### [facility] [address] [place] [address] [place] Bilirubin [Mass/Vol] 0.4 mg/dL Normal 0.3-1.0 [facility] Comment on above: Performed By: #### T SH3, CMP, MG #### [facility] [address] [place] [address] [place] Calcium [Mass/Vol] 9.1 mg/dL Normal 8.6-10.3 [facility] Comment on above: Performed By: #### T SH3, CMP, MG #### [facility] [address] [place] [address] [place] Chloride [Moles/Vol] 107 mmol/L Normal 98-107 [facility] Comment on above: Performed By: #### T SH3, CMP, MG #### [facility] [address] [place] [address] [place] CO2 [Moles/Vol] 27.7 mmol/L Normal 21.0-31.0 [facility] Comment on above: Performed By: #### T SH3, CMP, MG #### [facility] [address] [place] [address] [place] Creatinine [Mass/Vol] 1.28 mg/dL High 0.60-1.20 [facility] Comment on above: Performed By: #### T SH3, CMP, MG #### [facility] [address] [place] [address] [place] Creatinine Clr Calc Pharmacy 37.75 Normal [facility] Comment on above: Performed By: #### T SH3, CMP, MG #### [facility] [address] Estimated GFR 41.827 mL/Min Normal [facility] Comment on above: Performed By: #### T SH3, CMP, MG #### [address] Globulin (S) [Mass/Vol] 2.4 g/dL Normal [facility] Comment on above: Performed By: #### T SH3, CMP, MG #### [address] Glucose [Mass/Vol] 102 mg/dL High 70-100 [facility] Comment on above: Result Comment: [place] Glucose Reference Range is dependent on time and content of last meal. Glucose of more than 200 mg/dL in a nonstressed, ambulatory subject supports the diagnosis of Diabetes Mellitus. ADA recommended reference range Performed By: #### T SH3, CMP, MG #### [address] Potassium [Moles/Vol] 4.1 mmol/L Normal 3.5-5.1 [facility] Comment on above: Performed By: #### T SH3, CMP, MG #### [address] Protein [Mass/Vol] 6.2 g/dL Low 6.4-8.9 [facility] Comment on above: Performed By: #### T SH3, CMP, MG #### [address] Sodium [Moles/Vol] 142 mmol/L Normal 136-145 [facility] Comment on above: Performed By: #### T SH3, CMP, MG #### [address] Urea nitrogen [Mass/Vol] 28 mg/dL High 7-25 [facility] Comment on above: Performed By: #### T SH3, CMP, MG #### [place] [address] [place] Creatine Kinaseon 02-12-2025 CK [Catalytic activity/Vol] 35 U/L Normal 30-223 [facility] Comment on above: Performed By: #### S CAN CBC, CK, HS TROP, BNP, PT, PTT ####[facility] [place] [address] [place] Creatine kinase [Enzymatic a ctivity/volume] in Serum or PlasmaOrdered By: Jorge L Cruz on 02-12-2025 CK [Catalytic activity/Vol] Creatine kinase [Enzymatic activity/volume] in Serum or Plasma 30-223 [facility] Creatinine [Mass/volume] in Serum or PlasmaOrdered By: oJrge L Cruz on 02-12-2025 Creatinine [Mass/Vol] Creatinine [Mass/v olume] in Serum or Plasma High 0.60-1.20 [facility] ECG 12 lead ECGon 02-12-2025 ECG 12 lead ECG [facility] [address] [address] Electrocardiograph Report Signed Patient: Lashaun Joaquin MR#: [id number] : 1940 Acct:[id number] Age/Sex: 84 / F ADM Date: 02/12/25 Loc: ER Room: Type: [facility] ER Attending Dr: Ordering Provider: Jorge [...] rhythm Confirmed by Jorge L CRUZ DO ([id number]) on 02/12/2025 10:52:00 AM Referred By: Electronically Signed By: Jorge L CRUZ DO Transcribed By: MUS Signed By Jorge L Cruz DO 0 02/12/25 1052 Normal [facility] Eosinophils Auto (Bld) [#/Vo l]Ordered By: Jorge L Cruz on 02-12-2025 Eosinophils (Bld) [#/Vol] Automated eosinophil count 0.0-0.45 [facility] Eosinophils/100 WBC Auto (Bl d)Ordered By: Jorge L Cruz on 02-12-2025 Eosinophils/100 WBC (Bld) Automated eosinophil % . [facility] Erythrocyte distribution wid th Auto (RBC) [Ratio]Ordered By: Jorge L Cruz on 02-12-2025 Erythrocyte distribution width (RBC) [Ratio] Erythrocyte distribution width [Ratio] by Automated count 11.9-15.3 [facility] Erythrocyte morphology findi ng [Identifier] in BloodOrdered By: Jorge L Cruz on 02-12-2025 RBC morphology finding Nom (Bld) RBC morphology [facility] Globulin Calc (S) [Mass/Vol] Ordered By: Jorge L Cruz on 02-12-2025 Globulin (S) [Mass/Vol] Serum globulin measurement by calculation (mass/volume) [facility] Glucose [Mass/volume] in Ser um or PlasmaOrdered By: Jorge L Cruz on 02-12-2025 Glucose [Mass/Vol] Glucose [Mass/volume ] in Serum or Plasma High 70-100 [facility] Comment on above: ADA recommended [...] of Blood by Automated count Low 34.0-46.4 [facility] Hemoglobin [Mass/volume] in BloodOrdered By: Jorge L Cruz 02-12-2025 Hemoglobin (Bld) [Mass/Vol] Hemoglobin [Mass/volume] in Blood Low 11.8-15.4 [facility] INR in Platelet poor plasma by Coagulation assayOrdered By: Jorge L Cruz 02-12-2025 INR Coag (PPP) [Relative time] INR in Platelet poor plasma by Coagulation assay [facility] Comment on above: INR Therapeutic [...] erythrocytes in Blood by Automated coun 3.8-11.6 [facility] Lymphocytes Auto (Bld) [#/Vo l]Ordered By: Jorge L rCuz on 02-12-2025 Lymphocytes (Bld) [#/Vol] Lymphocytes [#/volume] in Blood by Automated count Low 1.00-4.8 [facility] Lymphocytes/100 WBC Auto (Bl d)Ordered By: Jorge L Cruz on 02-12-2025 Lymphocytes/100 WBC (Bld) Lymphocytes/100 leukocytes in Blood by Automated count . [facility] MCH Auto (RBC) [Entitic mass ]Ordered By: Jorge L Cruz on 02-12-2025 MCH (RBC) [Entitic mass] MCH [Entitic mass] by Automated count 24.7-34.3 [facility] MCHC Auto (RBC) [Mass/Vol]Or dered By: Jorge L Cruz on 02-12-2025 MCHC (RBC) [Mass/Vol] MCHC [Mass/volume] by Automated count 32.0-35.0 [facility] MCV Auto (RBC) [Entitic vol] Ordered By: Jorge L Cruz on 02-12-2025 MCV (RBC) [Entitic vol] MCV [Entitic volume] by Automated count 80-100 [facility] Magnesiumon 02-12-2025 Magnesium [Mass/Vol] 2.3 mg/dL Normal 1.9-2.7 [facility] Comment on above: Performed By: #### T SH3, CMP, MG #### [address] Magnesium [Mass/volume] in S courtney or PlasmaOrdered By: Jorge L Cruz on 02-12-2025 Magnesium [Mass/Vol] Magnesium [Mass/vol ume] in Serum or Plasma 1.9-2.7 [facility] Microcytes LM Ql (Bld)Ordere d By: Jorge L Cruz on 02-12-2025 Microcytes Ql (Bld) Microcytes [Presence ] in Blood by Light microscopy [facility] Monocyte distribution width [Entitic volume] in Blood by AutomatedOrdered By: Jorge L Cruz on 02-12-2025 Monocyte distribution width Auto (Bld) [Entitic vol] Monocyte distribution width [Entitic volume] in Blood by Automated High 0.00-20.00 [facility] Comment on above: For adults in ED, MD W > 20.0 may be associated with a higher risk of sepsis during the first 12 hrs of hospital admission Monocytes Auto (Bld) [#/Vol] Ordered By: Jorge L Cruz on 02-12-2025 Monocytes (Bld) [#/Vol] Automated blood monocyte count 0.0-0.8 [facility] Monocytes/100 WBC Auto (Bld) Ordered By: Jorge L Cruz on 02-12-2025 Monocytes/100 WBC (Bld) Automated monocyte % . [facility] Natriuretic peptide B [Mass/ Vol]Ordered By: Jorge L Cruz on 02-12-2025 Natriuretic peptide B (Bld) [Mass/Vol] BNP ser/plas High 5-100 [facility] Neutrophils Auto (Bld) [#/Vo l]Ordered By: Jorge L Cruz on 02-12-2025 Neutrophils (Bld) [#/Vol] Neutrophils [#/volume] in Blood by Automated count 1.8-7.7 [facility] Neutrophils/100 WBC Auto (Bl d)Ordered By: Jorge L Cruz on 02-12-2025 Neutrophils/100 WBC (Bld) Automated neutrophil % . [facility] No Panel InformationOrdered By: Jorge L Cruz on 02-12-2025 Estimated GFR (CKD-EPI) 41.827 mL/Min [facility] Pharmacy Creatinine Clearance (Chem 37.75 [facility] Nucleated erythrocytes [Pres ence] in Blood by Automated countOrdered By: Jorge L Cruz on 02-12-2025 Nucleated RBC Auto Ql (Bld) Nucleated erythrocytes [Presence] in Blood by Automated count 0-0.5 [facility] Ovalocytes [Presence] in Blo od by Light microscopyOrdered By: Jorge L Cruz on 02-12-2025 Ovalocytes LM Ql (Bld) Ovalocyte detection [facility] Partial Thromboplastin Timeo n 02-12-2025 aPTT Coag (Bld) [Time] 29.8 s Normal 25.1-36.5 Th e [facility] Comment on above: Result Comment: A he matocrit value greater than 55% may lead to inaccurate results in coagulation testing. Patients having hematocrit values >55% require a special collection tube for coagulation studies. Please contact the laboratory at [phone] for redraw instructions. PERFORMED BY: [facility] [address] [place] [address] PATHOLOGIST FABRICATION MIG WELDER RAMEZ MONTES M.D. Performed By: #### S CAN CBC, CK, HS TROP, BNP, PT, PTT ####[facility] [address] [place] [address] [facility] Platelet adequacy [Presence] in Blood by Light microscopyOrdered By: Jorge L Cruz on 02-12-2025 Platelets LM Ql (Bld) Platelet adequacy [Presence] in Blood by Light microscopy Normal [facility] Platelet mean volume Auto (B ld) [Entitic vol]Ordered By: Jorge L Cruz on 02-12-2025 Platelet mean volume (Bld) [Entitic vol] Platelet mean volume [Entitic volume] in Blood by Automated count 6.3-10.7 [facility] Platelet morphology finding [Identifier] in BloodOrdered By: Jorge L Cruz on 02-12-2025 Platelet morphology finding Nom (Bld) Platelet morphology finding [Identifier] in Blood Normal [facility] Platelets Auto (Bld) [#/Vol] Ordered By: Jorge L Cruz on 02-12-2025 Platelets (Bld) [#/Vol] Platelets [#/volume] in Blood by Automated count 150-450 [facility] Poikilocytosis [Presence] in Blood by Light microscopyOrdered By: Jorge L Cruz on 02-12-2025 Poikilocytosis LM Ql (Bld) Poikilocytosis [Presence] in Blood by Light microscopy [facility] Potassium [Moles/volume] in Serum or PlasmaOrdered By: Jorge L Cruz on 02-12-2025 Potassium [Moles/Vol] Potassium [Moles/v olume] in Serum or Plasma 3.5-5.1 [facility] Protein [Mass/volume] in Ser um or PlasmaOrdered By: Jorge L Cruz on 02-12-2025 Protein [Mass/Vol] Protein [Mass/volume ] in Serum or Plasma Low 6.4-8.9 [facility] Prothrombin Time INRon 02-12 INR Coag (PPP) [Relative time] 1.0 {INR} Normal The [facility] Comment on above: Result [...] CBC, CK, HS TROP, BNP, PT, PTT ####[facility] [place] [id number] [facility] PT Coag (PPP) [Time] 11.3 s Normal 9.0-12.9 The [facility] Comment on above: Result Comment: A he matocrit value greater than 55% may lead to inaccurate results in coagulation testing. Patients having hematocrit values >55% require a special collection tube for coagulation studies. Please contact the laboratory at [phone] for redraw instructions. Performed By: #### S CAN CBC, CK, HS TROP, BNP, PT, PTT ####[place] [id number] [place] [id number] [facility] Prothrombin time (PT)Ordered By: Jorge L Cruz on 02-12-2025 PT Coag (PPP) [Time] Prothrombin time (PT) 9.0- 12.9 [facility] Comment on above: A hematocrit value g reater than 55% may lead to inaccurate results in coagulation testing. Patients having hematocrit values >55% require a special collection tube for coagulation studies. Please contact the laboratory at [phone] for redraw instructions. RBC Auto (Bld) [#/Vol]Ordere d By: Jorge L Cruz on 02-12-2025 RBC (Bld) [#/Vol] Erythrocytes [#/volu me] in Blood by Automated count Low 3.60-5.00 [facility] Scan and CBCon 02-12-2025 Acanthocytes Slight Normal [facility] Comment on above: Performed By: #### S CAN CBC, CK, HS TROP, BNP, PT, PTT ####[facility] Anisocytosis Ql (Bld) Moderate Normal The [facility] Comment on above: Performed By: #### S CAN CBC, CK, HS TROP, BNP, PT, PTT ####[address] Basophils (Bld) [#/Vol] 0.0 10*3/uL Normal 0.0-0.2 [facility] Comment on above: Performed By: #### S CAN CBC, CK, HS TROP, BNP, PT, PTT ####[address] Basophils/100 WBC (Bld) 0.6 % Normal . The [facility] Comment on above: Performed By: #### S CAN CBC, CK, HS TROP, BNP, PT, PTT ####[address] Eosinophils (Bld) [#/Vol] 0.1 10*3/uL Normal 0.0-0.45 [facility] Comment on above: Performed By: #### S CAN CBC, CK, HS TROP, BNP, PT, PTT ####[address] Eosinophils/100 WBC (Bld) 1.5 % Normal . The [facility] Comment on above: Performed By: #### S CAN CBC, CK, HS TROP, BNP, PT, PTT ####[address] Erythrocyte distribution width (RBC) [Ratio] 13.8 % Normal 11.9-15.3 The [facility] Comment on above: Performed By: #### S CAN CBC, CK, HS TROP, BNP, PT, PTT ####[address] Hematocrit (Bld) [Volume fraction] 29.7 % Low 34.0-46.4 [facility] Comment on above: Performed By: #### S CAN CBC, CK, HS TROP, BNP, PT, PTT ####[address] Hemoglobin (Bld) [Mass/Vol] 10.2 g/dL Low 11.8-15.4 The [facility] Comment on above: Performed By: #### S CAN CBC, CK, HS TROP, BNP, PT, PTT ####[address] Lymphocytes (Bld) [#/Vol] 0.9 10*3/uL Low 1.00-4.8 The [facility] Comment on above: Performed By: #### S CAN CBC, CK, HS TROP, BNP, PT, PTT ####[address] Lymphocytes/100 WBC (Bld) 13.6 % Normal . The [facility] Comment on above: Performed By: #### S CAN CBC, CK, HS TROP, BNP, PT, PTT ####[address] MCH (RBC) [Entitic mass] 28.9 pg Normal 24.7-34.3 The [facility] Comment on above: Performed By: #### S CAN CBC, CK, HS TROP, BNP, PT, PTT ####[address] MCV (RBC) [Entitic vol] 83.9 fL Normal 80-100 The [facility] Comment on above: Performed By: #### S CAN CBC, CK, HS TROP, BNP, PT, PTT ####[address] Mean Corpuscular HGB Conc 34.5 g/dL Normal 32.0-35.0 The [facility] Comment on above: Performed By: #### S CAN CBC, CK, HS TROP, BNP, PT, PTT ####[address] Microcytosis Moderate Normal [facility] Comment on above: Performed By: #### S CAN CBC, CK, HS TROP, BNP, PT, PTT ####[address] Monocytes (Bld) [#/Vol] 0.4 10*3/uL Normal 0.0-0.8 The [facility] Comment on above: Performed By: #### S CAN CBC, CK, HS TROP, BNP, PT, PTT ####[address] Monocytes/100 WBC (Bld) 21.49 % High 0.00-20.00 The [facility] Comment on above: Result Comment: For adults in ED, MDW > 20.0 may be associated with a higher risk of sepsis during the first 12 hrs of hospital admission Performed By: #### S CAN CBC, CK, HS TROP, BNP, PT, PTT ####[address] Monocytes/100 WBC (Bld) 6.6 % Normal . The [facility] Comment on above: Performed By: #### S CAN CBC, CK, HS TROP, BNP, PT, PTT ####[address] Neutrophils (Bld) [#/Vol] 4.9 10*3/uL Normal 1.8-7.7 The [facility] Comment on above: Performed By: #### S CAN CBC, CK, HS TROP, BNP, PT, PTT ####[address] Neutrophils/100 WBC (Bld) 77.7 % Normal . The [facility] Comment on above: Performed By: #### S CAN CBC, CK, HS TROP, BNP, PT, PTT ####[address] NRBC% 0.1 /100{WBC} Normal 0-0.5 [facility] Comment on above: Performed By: #### S CAN CBC, CK, HS TROP, BNP, PT, PTT ####[place] [address] [place] Ovalocytes Slight Normal The [facility] Comment on above: Performed By: #### S CAN CBC, CK, HS TROP, BNP, PT, PTT ####[address] [place] [address] [facility] Platelet Estimate Normal Normal Normal The [facility] Comment on above: Performed By: #### S CAN CBC, CK, HS TROP, BNP, PT, PTT ####[address] [address] [facility] Platelet mean volume (Bld) [Entitic vol] 7.7 fL Normal 6.3-10.7 [facility] Comment on above: Performed By: #### S CAN CBC, CK, HS TROP, BNP, PT, PTT ####[address] [address] [facility] Platelet Morphology Normal Normal Normal The [facility] Comment on above: Result Comment: PERF ORMED BY: [facility] [address] [place] [address] PATHOLOGIST FABRICATION MIG WELDER RAMEZ MONTES M.D. Performed By: #### S CAN CBC, CK, HS TROP, BNP, PT, PTT ####[place] [id number] [facility] Platelets (Bld) [#/Vol] 383 10*3/uL Normal 150-450 The [facility] Comment on above: Performed By: #### S CAN CBC, CK, HS TROP, BNP, PT, PTT ####[address] [address] [facility] Poikilocytosis Moderate Normal The [facility] Comment on above: Performed By: #### S CAN CBC, CK, HS TROP, BNP, PT, PTT ####[place] [id number] [facility] RBC (Bld) [#/Vol] 3.54 10*6/uL Low 3.60-5.00 The [facility] Comment on above: Performed By: #### S CAN CBC, CK, HS TROP, BNP, PT, PTT ####[address] [address] [facility] WBC (Bld) [#/Vol] 6.3 10*3/uL Normal 3.8-11.6 [facility] Comment on above: Performed By: #### S CAN CBC, CK, HS TROP, BNP, PT, PTT ####[facility] WBC (Bld) [#/Vol] 7.6 10*3/uL Normal 3.8-11.6 [facility] Comment on above: Performed By: #### S CAN CBC, CK, HS TROP, BNP, PT, PTT ####[facility] Serum or plasma albumin/glob ulin mass ratioOrdered By: Jorge L Cruz on 02-12-2025 Albumin/Globulin [Mass ratio] Serum or plasma albumin/globulin mass ratio [facility] Serum or plasma anion gap de terminationOrdered By: Jorge L Cruz on 02-12-2025 Anion gap [Moles/Vol] Serum or plasma an ion gap determination 6.0-15.0 [facility] Sodium [Moles/volume] in Ser um or PlasmaOrdered By: Jorge L Cruz on 02-12-2025 Sodium [Moles/Vol] Sodium [Moles/volume ] in Serum or Plasma 136-145 [facility] Thyroid Stimulating Hormoneo n 02-12-2025 TSH Qn 6.48 m[IU]/L High 0.45-5.33 [facility] Comment on above: Result Comment: PERF ORMED BY: [place] [address] PATHOLOGIST FABRICATION MIG WELDER RAMEZ MONTES M.D. Performed By: #### T SH3, CMP, MG #### [facility] [address] Thyrotropin [Units/volume] i n Serum or PlasmaOrdered By: Jorge L Cruz on 02-12-2025 TSH Qn Thyrotropin [Units/volume] in Serum or Plasma High 0.45-5.33 [facility] Troponin I High Sensitivityo n 02-12-2025 Troponin I High Sensitivity 10 Normal 0-15 The [facility] Comment on above: Result Comment: The Troponin units of report have been changed to meet the Chest Pain Accreditation requirement, element EC5.M1l2. Troponin units are changed from pg/ml to ng/L. Also, the decimal is removed and results are in whole numbers. PERFORMED BY: [place] [address] PATHOLOGIST FABRICATION MIG WELDER RAMEZ MONTES M.D. Performed By: #### H S TROP ####[place] [id number] [facility] Troponin I High Sensitivity 10 Normal 0-15 The [facility] Comment on above: Result Comment: The Troponin units of report have been changed to meet the Chest Pain Accreditation requirement, element EC5.M1l2. Troponin units are changed from pg/ml to ng/L. Also, the decimal is removed and results are in whole numbers. PERFORMED BY: [place] [address] PATHOLOGIST FABRICATION MIG WELDER RAMEZ MONTES M.D. Performed By: #### S CAN CBC, CK, HS TROP, BNP, PT, PTT ####[place] [id number] [facility] Troponin I.cardiac [Mass/vol ume] in Serum or Plasma by Detection limit <= 0.01 ng/Ordered By: Jorge L Cruz on 02-12-2025 Troponin I.cardiac DL <= 0.01 ng/mL [Mass/Vol] Troponin I.cardiac [Mass/volume] in Serum or Plasma by Detection limit <= 0.01 ng/ 0-15 [facility] Comment on above: The Troponin [...] [Mass/volume] in Serum or Plasma High 7-25 [facility] WBC Auto (Bld) [#/Vol]Ordere d By: Jorge L Cruz on 02-12-2025 WBC (Bld) [#/Vol] Leukocytes [#/volume ] in Blood by Automated count 3.8-11.6 [facility] XR chest 2V*on 02-12-2025 XR chest 2V* [facility] [place] [address] [place] [address] XRay Report Signed Patient: Lashaun Joaquin MR#: [id number] : 1940 Acct:[id number] Age/Sex: 84 / F ADM Date: 02/12/25 Loc: ER Room: Type: [facility] ER Attending Dr: Copies to: Jorge L [...] Lyon Jr., D.OManuel02/12/2025 8:16 AM Dictation Location: [place] [address] Transcribed By: [facility] 02/12/25815 Dictated By: Epifanio Lyon Jr, DO 02/12/25815 Signed By: 02/12/25815 Normal The [facility] aPTT in Platelet poor plasma by Coagulation assayOrdered By: Jorge L Cruz on 02-12-2025 aPTT Coag (PPP) [Time] Activated partial thromboplastin time (aPTT) in platelet poor plasma by coagulation a 25.1-36.5 [facility] Comment on above: A hematocrit value g reater than 55% may lead to inaccurate results in coagulation testing. Patients having hematocrit values >55% require a special collection tube for coagulation studies. Please contact the laboratory at [phone] for redraw instructions. US Thyroid glandon [facility] [address] [place] [address] Ultrasound Report Signed Patient: LASHAUN JOAQUIN MR#: [id number] : 1940 Acct:[id number] Age/Sex: 84 / F ADM Date: 02/10/25 Loc: US Attending Dr: Reyna Esparza M.D. Ordering Physician: Reyna Esparza M.D. Date of Service: 02/10/25 Procedure(s): US thyroid Accession Number(s): [id number] cc: Nathan Hathaway D.O.; Reyna Esparza M.D. [place] [id number] Patient Name: LASHAUN JOAQUIN MRN: [facility]:[id number] date: 1940 Sex: F Assigned Patient Location: US Current Patient Location: US Accession/Order Number: [id number] Exam Date: 02/10/2025 11:24 Report Date: 02/10/2025 [...] NODULARITY, NOT SIGNIFICANT CHANGE. Impression dictated by: hSelli Israel M.D.02/10/2025 11:33 AM Dictation Location: [place] [address] Electronically authenticated by: [id number] Y Date: 02/10/2025 11:33 Dictated By: Shelil Israel M.D. Signed By: 02/10/25 1136 DD/ 1133 TD/TT: Optician: [facility] Radiology, Radiologi MD tana - 02/10/2025 [place] [address] Ultrasound Report Signed Patient: LASHAUN JOAQUIN MR#: [id number] : 1940 Acct:[id number] Age/Sex: 84 / F ADM Date: 02/10/25 Loc: US Attending Dr: Reyna Esparza M.D. Ordering Physician: Reyna Esparza M.D. Date of Service: 02/10/25 Procedure(s): US thyroid Accession Number(s): [id number] cc: Nathan Hathaway D.O.; Reyna Esaprza M.D. The [place] [address] Patient Name: LASHAUN JOAQUIN MRN: [facility]:[id number] date: 1940 Sex: F Assigned Patient Location: US Current Patient Location: US Accession/Order Number: [id number] Exam Date: 02/10/2025 11:24 Report Date: 02/10/2025 [...] Shelli Israel M.D.02/10/2025 11:33 AM Dictation Location: [place] [address] Electronically authenticated by: [id number] Y Date: 02/10/2025 11:33 Dictated By: Shelli Israel M.D. Signed By: 02/10/25 1136 DD/ 1133 TD/TT: Optician: [facility] Radiology Study observation (narrative) [facility] US Thyroid glandOrdered By: Radiologist Radiology on 02-10-2025 [facility] Work Phone: Estimated glomerular filtrat ion rate (GFR) non- Americanon 01-23-2025 GFR/1.73 sq M.predicted among non-blacks MDRD (S/P/Bld) [Vol rate/Area] Estimated glomerular filtration rate (GFR) non- Low >=60 mL/min/1.73 m 2 [facility] Laboratory - Chemistry and C hemistry - challengeon 01-23-2025 Calcium [Mass/Vol] 8.9 mg/dL 8.5-10.1 [facility] Chloride [Moles/Vol] 106 mmol/L 98-107 [facility] CO2 [Moles/Vol] 28.0 mmol/L 21.0-32.0 [facility] Creatinine [Mass/Vol] 1.42 mg/dL High 0.55-1.02 [facility] GFR/1.73 sq M.predicted MDRD (S/P/Bld) [Vol rate/Area] 43 mL/min/{1.73_m2} Low >=60 mL/min/1.73 m 2 [facility] Glucose [Mass/Vol] 116 mg/dL High 74-106 [facility] Potassium [Moles/Vol] 3.9 mmol/L 3.5-5.1 [facility] Sodium [Moles/Vol] 145 mmol/L 136-145 [facility] Urea nitrogen [Mass/Vol] 21.0 mg/dL High 7.0-18.0 [facility] Urea nitrogen/Creatinine [Mass ratio] 14.8 mg/mg [facility] Serum or plasma anion gap de terminationon 01-23-2025 Anion gap [Moles/Vol] Serum or plasma an ion gap determination [facility] Laboratory - Chemistry and C hemistry - challengeon 12-29-2024 Bilirubin Ql (U) Negative [facility] Glucose (U) [Mass/Vol] [facility] Ketones Ql (U) Negative [facility] pH (U) 5 [pH] [facility] Specific gravity (U) [Rel density] 1.000 [facility] Urobilinogen (U) [Mass/Vol] Negative [facility] Laboratory - Specimen inform ationon 12-29-2024 Appearance (U) clear [facility] Color (U) yellow [facility] Laboratory - Urinalysison Leukocyte esterase Test strip Ql (U) Negative [facility] Nitrite Ql (U) Negative [facility] Protein Ql (U) 0.2 [facility] No Panel Informationon 12-29 Urine Occult Blood ++ [facility] Estimated glomerular filtrat ion rate (GFR) non- Americanon 12-18-2024 GFR/1.73 sq M.predicted among non-blacks MDRD (S/P/Bld) [Vol rate/Area] Estimated glomerular filtration rate (GFR) non- Low >=60 mL/min/1.73 m 2 [facility] Laboratory - Chemistry and C hemistry - challengeon 12-18-2024 Calcium [Mass/Vol] 8.9 mg/dL 8.5-10.1 [facility] Chloride [Moles/Vol] 105 mmol/L 98-107 [facility] CO2 [Moles/Vol] 30.4 mmol/L 21.0-32.0 [facility] Creatinine [Mass/Vol] 1.57 mg/dL High 0.55-1.02 [facility] Free T4 [Mass/Vol] 0.90 ng/dL 0.76-1.46 [facility] GFR/1.73 sq M.predicted MDRD (S/P/Bld) [Vol rate/Area] 38 mL/min/{1.73_m2} Low >=60 mL/min/1.73 m 2 [facility] Glucose [Mass/Vol] 119 mg/dL High 74-106 [facility] Potassium [Moles/Vol] 4.1 mmol/L 3.5-5.1 [facility] Sodium [Moles/Vol] 143 mmol/L 136-145 [facility] TSH Qn 2.650 m[IU]/L 0.358-3.740 [facility] Urea nitrogen [Mass/Vol] 28.0 mg/dL High 7.0-18.0 [facility] Urea nitrogen/Creatinine [Mass ratio] 17.8 mg/mg [facility] Serum or plasma anion gap de terminationon 12-18-2024 Anion gap [Moles/Vol] Serum or plasma an ion gap determination [facility] INR in Platelet poor plasma by Coagulation assayOrdered By: Nathan Hathaway on 11-17-2024 INR Coag (PPP) [Relative time] INR in Platelet poor plasma by Coagulation assay [facility] Comment on above: INR Therapeutic [...] [id number] Received: 11/17/24 Status: SERENITY Bob Num: [id number] Spec Type: Cytology Subm Dr: Seth Ley DO Tissues: A FNA SLIDES PATH (FNA THYROID) Procedures: -, DIFF QWIK/3, PAPSTN/4 Age/ Patient Sex Location Account Attending Physician Lashaun Joaquin 84/F [id number] Nathan Hathaway DO SPEC NUM: [id number] RECD: 11/17/24-1307 STATUS: SERENITY BOB NUM: [id number] JED: 11/17/24- SUBM DR: Seth Ley DO ENTERED: 11/17/24-1308 [facility] DR: Nathan Hathaway DO SPEC TYPE: Cytology DEPT: HARDY ENTERED BY: [id number] RECV BY: [id number] ORDERED: -, DIFF QWIK/3, PAPSTN/4 ORDERED: -, DIFF QWIK/3, PAPSTN/4 Pathological Diagnosis Thyroid nodule, US-guided FNA: Satisfactory for evaluation. Benign (Johnson category I). Clinical Information Thyroid Nodule,adrenal nodule, [...] [id number] Received: 11/17/24 Status: SERENITY Meyer Num: [id number] Spec Type: Cytology Subm Dr: Seth Ley DO Tissues: A FNA SLIDES PATH (FNA THYROID) Procedures: -, DIFF QWIK/3, PAPSTN/4 Patient: Lashaun Joaquin [id number] (Continued) Specimen: [id number] Received: 11/17/24 (Continued) Signed (signature on file) Lala Mast MD 11/18/24 0857 Specimen: [id number] Received: 11/17/24 Status: SERENITY Meyer Num: [id number] Spec Type: Cytology Subm Dr: Seth Ley DO Tissues: A FNA SLIDES PATH (FNA THYROID) Procedures: -, DIFF QWIK/3, PAPSTN/4 Patient: Karla Joaquinelyn [id number] (Continued) Specimen: [id number] Received: 11/17/24 (Continued) CPT Codes 78719, 64448 Specimen: [id number] Received: 11/17/24-1307 Status: SERENITY Meyer Num: [id number] Spec Type: Cytology Subm Dr: Seth Ley DO Tissues: A FNA SLIDES PATH (FNA THYROID) Procedures: -, DIFF QWIK/3, PAPSTN/4 Patient: Lashaun Joaquin [id number] (Continued) Signed (signature on file) Lala Mast MD 11/18/24 0857 Normal [facility] Partial Thromboplastin Timeo n 11-17-2024 aPTT Coag ([facility]) [Time] 28.9 s Normal 25.1-36.5 Th e [facility] Comment on above: Result Comment: A he matocrit value greater than 55% may lead to inaccurate results in coagulation testing. Patients having hematocrit values >55% require a special collection tube for coagulation studies. Please contact the laboratory at [phone] for redraw instructions. PERFORMED BY: [address] [id number] PATHOLOGIST FABRICATION MIG WELDER RAMEZ MONTES M.D. Performed By: #### P TT, PT #### [place] [id number] [facility] Platelet Counton 11-17-2024 Platelets (Bld) [#/Vol] 253 10*3/uL Normal 150-450 [facility] Comment on above: Result Comment: PERF ORMED BY: [place] [address] PATHOLOGIST FABRICATION MIG WELDER RAMEZ MONTES M.D. Performed By: #### P LT #### [address] Platelets Auto (Bld) [#/Vol] Ordered By: Nathan Hathaway on 11-17-2024 Platelets (Bld) [#/Vol] Platelets [#/volume] in Blood by Automated count 150-450 [facility] Prothrombin Time INRon 11-17 INR Coag (PPP) [Relative time] 1.0 {INR} Normal [facility] Comment on above: Result [...] Performed By: #### P TT, PT #### [address] [address] [facility] PT Coag (PPP) [Time] 11.9 s Normal 9.0-12.9 [facility] Comment on above: Result Comment: A he matocrit value greater than 55% may lead to inaccurate results in coagulation testing. Patients having hematocrit values >55% require a special collection tube for coagulation studies. Please contact the laboratory at [phone] for redraw instructions. Performed By: #### P TT, PT #### [facility] [address] [place] [id number] [facility] Prothrombin time (PT)Ordered By: Nathan Hathaway on 11-17-2024 PT Coag (PPP) [Time] Prothrombin time (PT) 9.0- 12.9 [facility] Comment on above: A hematocrit value g reater than 55% may lead to inaccurate results in coagulation testing. Patients having hematocrit values >55% require a special collection tube for coagulation studies. Please contact the laboratory at [phone] for redraw instructions. US needle aspirationon 11-17 US needle aspiration [facility] [place] [address] [place] [address] Ultrasound Report Signed Patient: Lashaun Joaquin MR#: [id number] : 1940 Acct:[id number] Age/Sex: 84 / F ADM Date: 11/17/24 Loc: Room: Type: [facility] Attending Dr: Nathan Hathaway DO [...] Seth Ley M.D.11/17/2024 12:41 PM Dictation Location: [place] [address] Tech: Deja Lipscomb Transcribed By: LAURA 11/17/24 1241 Dictated By: Seth Ley DO 11/17/24 1159 Signed By: 11/17/24 1241 Normal [facility] aPTT in Platelet poor plasma by Coagulation assayOrdered By: Nathan Hathaway on 11-17-2024 aPTT Coag (PPP) [Time] Activated partial thromboplastin time (aPTT) in platelet poor plasma by coagulation a 25.1-36.5 [facility] Comment on above: A hematocrit value g reater than 55% may lead to inaccurate results in coagulation testing. Patients having hematocrit values >55% require a special collection tube for coagulation studies. Please contact the laboratory at [phone] for redraw instructions. Estimated glomerular filtrat ion rate (GFR) non- Americanon 09-12-2024 GFR/1.73 sq M.predicted among non-blacks MDRD (S/P/Bld) [Vol rate/Area] Estimated glomerular filtration rate (GFR) non- Low >=60 mL/min/1.73 m 2 [facility] Laboratory - Chemistry and C hemistry - challengeon 09-12-2024 Calcium [Mass/Vol] 8.6 mg/dL 8.5-10.1 [facility] Chloride [Moles/Vol] 108 mmol/L High 98-107 [facility] CO2 [Moles/Vol] 27.0 mmol/L 21.0-32.0 [facility] Creatinine [Mass/Vol] 1.39 mg/dL High 0.55-1.02 [facility] Free T4 [Mass/Vol] 0.80 ng/dL 0.76-1.46 [facility] GFR/1.73 sq M.predicted MDRD (S/P/Bld) [Vol rate/Area] 44 mL/min/{1.73_m2} Low >=60 mL/min/1.73 m 2 [facility] Glucose [Mass/Vol] 85 mg/dL 74-106 [facility] Potassium [Moles/Vol] 4.5 mmol/L 3.5-5.1 [facility] Sodium [Moles/Vol] 144 mmol/L 136-145 [facility] TSH Qn 3.767 m[IU]/L High 0.358-3.740 [facility] Urea nitrogen [Mass/Vol] 20.0 mg/dL High 7.0-18.0 [facility] Urea nitrogen/Creatinine [Mass ratio] 14.4 mg/mg [facility] Serum or plasma anion gap de terminationon 09-12-2024 Anion gap [Moles/Vol] Serum or plasma an ion gap determination [facility] Estimated glomerular filtrat ion rate (GFR) non- Americanon 05-20-2024 GFR/1.73 sq M.predicted among non-blacks MDRD (S/P/Bld) [Vol rate/Area] 39 mL/min/{1.73_m2} Low >=60 [facility] Laboratory - Chemistry and C hemistry - challengeon 05-20-2024 Calcium [Mass/Vol] 8.8 mg/dL 8.5-10.1 [facility] Chloride [Moles/Vol] 106 mmol/L 98-107 [facility] CO2 [Moles/Vol] 30.8 mmol/L 21.0-32.0 [facility] Creatinine [Mass/Vol] 1.30 mg/dL High 0.55-1.02 [facility] GFR/1.73 sq M.predicted MDRD (S/P/Bld) [Vol rate/Area] 48 mL/min/{1.73_m2} Low >=60 [facility] Glucose [Mass/Vol] 89 mg/dL 74-106 [facility] Potassium [Moles/Vol] 4.3 mmol/L 3.5-5.1 [facility] Sodium [Moles/Vol] 143 mmol/L 136-145 [facility] Urea nitrogen [Mass/Vol] 24.0 mg/dL High 7.0-18.0 [facility] Urea nitrogen/Creatinine [Mass ratio] 18.5 mg/mg [facility] Serum or plasma anion gap de terminationon 05-20-2024 Anion gap [Moles/Vol] 10.5 mmol/L [facility] Estimated glomerular filtrat ion rate (GFR) non- Americanon 04-30-2024 GFR/1.73 sq M.predicted among non-blacks MDRD (S/P/Bld) [Vol rate/Area] 37 mL/min/{1.73_m2} Low >=60 [facility] Laboratory - Chemistry and C hemistry - challengeon 04-30-2024 Calcium [Mass/Vol] 8.5 mg/dL 8.5-10.1 [facility] Chloride [Moles/Vol] 106 mmol/L 98-107 [facility] CO2 [Moles/Vol] 28.7 mmol/L 21.0-32.0 [facility] Creatinine [Mass/Vol] 1.36 mg/dL High 0.55-1.02 [facility] GFR/1.73 sq M.predicted MDRD (S/P/Bld) [Vol rate/Area] 45 mL/min/{1.73_m2} Low >=60 [facility] Glucose [Mass/Vol] 98 mg/dL 74-106 [facility] Potassium [Moles/Vol] 4.3 mmol/L 3.5-5.1 [facility] Sodium [Moles/Vol] 142 mmol/L 136-145 [facility] Urea nitrogen [Mass/Vol] 26.0 mg/dL High 7.0-18.0 [facility] Urea nitrogen/Creatinine [Mass ratio] 19.1 mg/mg [facility] Serum or plasma anion gap de terminationon 04-30-2024 Anion gap [Moles/Vol] 11.6 mmol/L [facility] NM Heart Perfusion W stress and W radionuclide Rivka 03-12-2024 Normal Lexiscan Myov iew cardiac perfusion stress test. No evidence of ischemia or myocardial infarction by perfusion imaging. Normal left ventricular systolic function, ejection fraction 88%. When compared previous study changes are noted. Previous study showed anterior wall ischemia which was not present during the study. Signed by: Faustino uZniga 03/12/2024 4:34 PM Dictation workstation: [id number] Interpreted By: Faustino Zuniga, and Gustavo Ignacio STUDY: MYOCARDIAL PERFUSION STRESS TEST WITH LEXISCAN Performing facility: [facility], [address] [place] [address], [address], [place] [address] [facility] Provider: Holden Rosado RN, INTERPRETIVE PROGRAM COORDINATOR PCP: Dr. Ksenia Hathaway Supervising provider: Anthony Perry DO, [facility] INDICATION: ASHD HISTORY: Gender: F; Age: 83 y/o ; Height: HT 165.1 cm cm; Weight: WT 88.905 kg kg. CAD; High Cholesterol; HTN; Fatigue; Quit smoking 44 years ago. Cardiac catheterization on 2022. PTCA on 2022. COMPARISON: Previous nuclear testing completed at [place]. ACCESSION NUMBER(S): [id number] ORDERING CLINICIAN: HOLDEN ROSADO TECHNIQUE: ONE DAY [...] PERFUSION STRESS TEST WITH LEXISCAN Performing facility: [facility], [address] [place] [address], [address], [place] [address] [facility] Provider: Holden Rosado RN, INTERPRETIVE PROGRAM COORDINATOR PCP: Dr. Ksenia Hathaway Supervising provider: Anthony Perry DO, [facility] INDICATION: ASHD HISTORY: Gender: F; Age: 83 y/o ; Height: HT 165.1 cm cm; Weight: WT 88.905 kg kg. CAD; High Cholesterol; HTN; Fatigue; Quit smoking 44 years ago. Cardiac catheterization on 2022. PTCA on 2022. COMPARISON: Previous nuclear testing completed [id number] at [place]. ACCESSION NUMBER(S): [id number] ORDERING CLINICIAN: HOLDEN ROSADO TECHNIQUE: ONE DAY [...] Faustino Zuniga 03/12/2024 4:34 PM Dictation workstation: [id number] [facility] Work Phone: Radiology Study observation (narrative) [facility] Work Phone: NM Heart Perfusion W stress and W radionuclide IVOrdered By: Faustino Zuniga on 03-12-[address] [facility] Work Phone: Basic Metabolic Panelon 05-0 GFR/1.73 sq M.predicted MDRD (S/P/Bld) [Vol rate/Area] 39.134 mL/min/{1.73_m2} Normal [facility] Comment on above: Performed By: #### B MP ####[address] [address] [facility] Calcium [Mass/volume] in Ser um or PlasmaOrdered By: Holden Rosado on 03-05-2024 Calcium [Mass/Vol] 9.2 mg/dL Normal 8.6-10.3 [facility] Comment on above: Result Comment: PERF ORMED BY: [facility] [address] [place] [address] PATHOLOGIST FABRICATION MIG WELDER JAMAAL MO M.D. Performed By: #### B MP ####[place] [id number] [facility] Carbon dioxide, total [Moles /volume] in Serum or PlasmaOrdered By: Holden Rosado on 03-05-2024 CO2 [Moles/Vol] 32.1 mmol/L High 21.0-31.0 [facility] Comment on above: Performed By: #### B MP ####[address] [address] [place] Chloride [Moles/volume] in S courtney or PlasmaOrdered By: Holden Rosado on 03-05-2024 Chloride [Moles/Vol] 104 mmol/L Normal 98-107 [facility] Comment on above: Performed By: #### B MP ####[place] [id number] [place] Creatinine [Mass/volume] in Serum or PlasmaOrdered By: Holden Rosado on 03-05-2024 Creatinine [Mass/Vol] 1.36 mg/dL High 0.60-1.20 [facility] Comment on above: Performed By: #### B MP ####[place] [id number] [place] Glucose [Mass/volume] in Ser um or PlasmaOrdered By: Holden Rosado on 05-08-2024 Glucose [Mass/Vol] 79 mg/dL Normal 70-100 [facility] Comment on above: ADA recommended refe rence rangeRandom Glucose Reference Range is dependent on time and content of last meal. Glucose of more than 200 mg/dL in a nonstressed, ambulatory subject supports the diagnosis of Diabetes Mellitus. Result Comment: [place] om Glucose Reference Range is dependent on time and content of last meal. Glucose of more than 200 mg/dL in a nonstressed, ambulatory subject supports the diagnosis of Diabetes Mellitus. ADA recommended reference range Performed By: #### B MP ####[address] No Panel InformationOrdered By: Holden Rosado on 03-05-2024 Estimated GFR (CKD-EPI) 39.134 mL/Min [facility] Creatinine Clearance (Chem N/A [facility] Potassium [Moles/volume] in Serum or PlasmaOrdered By: Holden Rosado on 03-05-2024 Potassium [Moles/Vol] 5.2 mmol/L High 3.5-5.1 [facility] Comment on above: Performed By: #### B MP ####[address] Serum or plasma anion gap de terminationOrdered By: Holden Rosado on 03-05-2024 Anion gap [Moles/Vol] 10.1 mmol/L Normal 6.0-15.0 [facility] Comment on above: Performed By: #### B MP ####[address] Sodium [Moles/volume] in Ser um or PlasmaOrdered By: Holden Rosado on 03-05-2024 Sodium [Moles/Vol] 141 mmol/L Normal 136-145 [facility] Comment on above: Performed By: #### B MP ####[address] Urea nitrogen [Mass/volume] in Serum or PlasmaOrdered By: Holden Rosado on 03-05-2024 Urea nitrogen [Mass/Vol] 26 mg/dL High 7-25 [facility] Comment on above: Performed By: #### B MP ####[facility] [id number] [place] [address] [facility] Basophils Auto (Bld) [#/Vol] on 02-20-2024 Basophils (Bld) [#/Vol] 0.0 10 3/uL 0.0-0.1 [facility] Basophils/100 WBC Auto (Bld) on 02-20-2024 Basophils/100 WBC (Bld) 0.8 % 0.2-2.0 [facility] Eosinophils/100 WBC Auto (Bl d)on 02-20-2024 Eosinophils/100 WBC (Bld) 2.8 % 0.9-7.0 [facility] Erythrocyte distribution wid th Auto (RBC) [Ratio]on 02-20-2024 Erythrocyte distribution width (RBC) [Ratio] 13.1 % 11.0-15.0 [facility] Estimated glomerular filtrat ion rate (GFR) non- Americanon 02-20-2024 GFR/1.73 sq M.predicted among non-blacks MDRD (S/P/Bld) [Vol rate/Area] 49 mL/min/{1.73_m2} >=60 [facility] Globulin Calc (S) [Mass/Vol] on 02-20-2024 Globulin (S) [Mass/Vol] 2.7 g/dL [facility] Hematocrit Auto (Bld) [Volum e fraction]on 02-20-2024 Hematocrit (Bld) [Volume fraction] 29.2 % 36.0-48.0 [facility] Hemoglobin [Mass/volume] in Bloodon 02-20-2024 Hemoglobin (Bld) [Mass/Vol] 9.5 g/dL 12.0-16.0 [facility] Laboratory - Chemistry and C hemistry - challengeon 02-20-2024 Albumin [Mass/Vol] 2.9 g/dL 3.4-5.0 [facility] ALP [Catalytic activity/Vol] 44 U/L 46-116 [facility] ALT [Catalytic activity/Vol] 13 U/L 14-59 [facility] AST [Catalytic activity/Vol] 14 U/L 15-37 [facility] Bilirubin [Mass/Vol] 0.6 mg/dL 0.2-1.0 [facility] Calcium [Mass/Vol] 8.9 mg/dL 8.5-10.1 [facility] Chloride [Moles/Vol] 107 mmol/L 98-107 [facility] CO2 [Moles/Vol] 27.9 mmol/L 21.0-32.0 [facility] Creatinine [Mass/Vol] 1.08 mg/dL 0.55-1.02 [facility] GFR/1.73 sq M.predicted MDRD (S/P/Bld) [Vol rate/Area] 59 mL/min/{1.73_m2} >=60 [facility] Glucose [Mass/Vol] 83 mg/dL 74-106 [facility] Potassium [Moles/Vol] 3.8 mmol/L 3.5-5.1 [facility] Protein [Mass/Vol] 5.6 g/dL 6.4-8.2 [facility] Sodium [Moles/Vol] 141 mmol/L 136-145 [facility] Urea nitrogen [Mass/Vol] 18.0 mg/dL 7.0-18.0 [facility] Urea nitrogen/Creatinine [Mass ratio] 16.7 mg/mg [facility] Laboratory - Hematology and Cell countson 02-20-2024 Immature granulocytes/100 WBC (Bld) 0.2 % 0.0-0.5 [facility] Leukocytes [#/volume] correc miguel for nucleated erythrocytes in Blood by Automated counon 02-20-2024 WBC corrected for nucl RBC Auto (Bld) [#/Vol] 4.7 10 3/uL 4.0-11.0 [facility] Lymphocytes Auto (Bld) [#/Vo l]on 02-20-2024 Lymphocytes (Bld) [#/Vol] 1.0 10 3/uL 1.2-3.8 [facility] Lymphocytes/100 WBC Auto (Bl d)on 02-20-2024 Lymphocytes/100 WBC (Bld) 21.8 % 20.5-60.0 [facility] MCH Auto (RBC) [Entitic mass ]on 02-20-2024 MCH (RBC) [Entitic mass] 29.2 pg 26.7-34.0 [facility] MCHC Auto (RBC) [Mass/Vol]on 02-20-2024 MCHC (RBC) [Mass/Vol] 32.5 g/dL 29.9-35.2 [facility] MCV Auto (RBC) [Entitic vol] on 02-20-2024 MCV (RBC) [Entitic vol] 89.8 fL 81.0-99.0 [facility] Monocytes Auto (Bld) [#/Vol] on 02-20-2024 Monocytes (Bld) [#/Vol] 0.7 10 3/uL 0.3-0.8 [facility] Monocytes/100 WBC Auto (Bld) on 02-20-2024 Monocytes/100 WBC (Bld) 14.2 % 1.7-12.0 [facility] Neutrophils Auto (Bld) [#/Vo l]on 02-20-2024 Neutrophils (Bld) [#/Vol] 2.8 10 3/uL 1.4-6.5 [facility] Neutrophils/100 WBC Auto (Bl d)on 02-20-2024 Neutrophils/100 WBC (Bld) 60.2 % 43.0-75.0 [facility] No Panel Informationon 02-19 Eosinophils # (Auto) 0.1 10 3/uL 0.0-0.7 [facility] Immature Granulocyte # (Auto) 0.01 10 3/uL 0.00-0.03 [facility] Platelet mean volume Auto (B ld) [Entitic vol]on 02-20-2024 Platelet mean volume (Bld) [Entitic vol] 10.5 fL 9.5-13.5 [facility] Platelets Auto (Bld) [#/Vol] on 02-20-2024 Platelets (Bld) [#/Vol] 250 10 3/uL 150-450 [facility] RBC Auto (Bld) [#/Vol]on RBC (Bld) [#/Vol] 3.25 10 6/uL 4.20-5.40 [facility] Serum or plasma albumin/glob ulin mass ratioon 02-20-2024 Albumin/Globulin [Mass ratio] 1.1 {ratio} [facility] Serum or plasma anion gap de terminationon 02-20-2024 Anion gap [Moles/Vol] 9.9 mmol/L [facility] Basophils Auto (Bld) [#/Vol] on 02-19-2024 Basophils (Bld) [#/Vol] 0.0 10 3/uL 0.0-0.1 [facility] Basophils/100 WBC Auto (Bld) on 02-19-2024 Basophils/100 WBC (Bld) 0.8 % 0.2-2.0 [facility] Cholesterol in LDL Calc [Mas s/Vol]on 02-19-2024 Cholesterol in LDL [Mass/Vol] 100.4 mg/dL [facility] Comment on above: <100 mg/dl [id number] 0-129 mg/dl NEAR OR ABOVE [id number] mg/dl BORDERLINE [id number] mg/dl HIGH>190 mg/dl VERY HIGH Cholesterol in VLDL Calc [Ma ss/Vol]on 02-19-2024 Cholesterol in VLDL [Mass/Vol] 15.6 mg/dL [facility] Eosinophils/100 WBC Auto (Bl d)on 02-19-2024 Eosinophils/100 WBC (Bld) 1.9 % 0.9-7.0 [facility] Erythrocyte distribution wid th Auto (RBC) [Ratio]on 02-19-2024 Erythrocyte distribution width (RBC) [Ratio] 13.2 % 11.0-15.0 [facility] Estimated glomerular filtrat ion rate (GFR) non- Americanon 02-19-2024 GFR/1.73 sq M.predicted among non-blacks MDRD (S/P/Bld) [Vol rate/Area] 44 mL/min/{1.73_m2} >=60 [facility] Globulin Calc (S) [Mass/Vol] on 02-19-2024 Globulin (S) [Mass/Vol] 2.8 g/dL [facility] Hematocrit Auto (Bld) [Volum e fraction]on 02-19-2024 Hematocrit (Bld) [Volume fraction] 31.2 % 36.0-48.0 [facility] Hemoglobin [Mass/volume] in Bloodon 02-19-2024 Hemoglobin (Bld) [Mass/Vol] 10.0 g/dL 12.0-16.0 [facility] Laboratory - Chemistry and C hemistry - challengeon 02-19-2024 Albumin [Mass/Vol] 3.2 g/dL 3.4-5.0 [facility] ALP [Catalytic activity/Vol] 49 U/L 46-116 [facility] ALT [Catalytic activity/Vol] 15 U/L 14-59 [facility] AST [Catalytic activity/Vol] 15 U/L 15-37 [facility] Bilirubin [Mass/Vol] 0.5 mg/dL 0.2-1.0 [facility] Calcium [Mass/Vol] 9.4 mg/dL 8.5-10.1 [facility] Chloride [Moles/Vol] 108 mmol/L 98-107 [facility] Cholesterol [Mass/Vol] 158 mg/dL <=200 [facility] Cholesterol in HDL [Mass/Vol] 42 mg/dL 40-60 [facility] Comment on above: > or =60 mg/dl - LOW CARDIOVASCULAR RISK<40 mg/dl - HIGH CARDIOVASCULAR RISK CO2 [Moles/Vol] 28.7 mmol/L 21.0-32.0 [facility] Creatinine [Mass/Vol] 1.18 mg/dL 0.55-1.02 [facility] GFR/1.73 sq M.predicted MDRD (S/P/Bld) [Vol rate/Area] 53 mL/min/{1.73_m2} >=60 [facility] Glucose [Mass/Vol] 93 mg/dL 74-106 [facility] Potassium [Moles/Vol] 4.0 mmol/L 3.5-5.1 [facility] Protein [Mass/Vol] 6.0 g/dL 6.4-8.2 [facility] Sodium [Moles/Vol] 145 mmol/L 136-145 [facility] Triglyceride [Mass/Vol] 78 mg/dL <=150 [facility] TSH Qn 4.696 m[IU]/L 0.358-3.740 [facility] Urea nitrogen [Mass/Vol] 20.0 mg/dL 7.0-18.0 [facility] Urea nitrogen/Creatinine [Mass ratio] 16.9 mg/mg [facility] Laboratory - Hematology and Cell countson 02-19-2024 Immature granulocytes/100 WBC (Bld) 0.6 % 0.0-0.5 [facility] Leukocytes [#/volume] correc miguel for nucleated erythrocytes in Blood by Automated counon 02-19-2024 WBC corrected for nucl RBC Auto (Bld) [#/Vol] 5.3 10 3/uL 4.0-11.0 [facility] Lymphocytes Auto (Bld) [#/Vo l]on 02-19-2024 Lymphocytes (Bld) [#/Vol] 1.1 10 3/uL 1.2-3.8 [facility] Lymphocytes/100 WBC Auto (Bl d)on 02-19-2024 Lymphocytes/100 WBC (Bld) 21.3 % 20.5-60.0 [facility] MCH Auto (RBC) [Entitic mass ]on 02-19-2024 MCH (RBC) [Entitic mass] 29.6 pg 26.7-34.0 [facility] MCHC Auto (RBC) [Mass/Vol]on 02-19-2024 MCHC (RBC) [Mass/Vol] 32.1 g/dL 29.9-35.2 [facility] MCV Auto (RBC) [Entitic vol] on 02-19-2024 MCV (RBC) [Entitic vol] 92.3 fL 81.0-99.0 [facility] Monocytes Auto (Bld) [#/Vol] on 02-19-2024 Monocytes (Bld) [#/Vol] 0.6 10 3/uL 0.3-0.8 [facility] Monocytes/100 WBC Auto (Bld) on 02-19-2024 Monocytes/100 WBC (Bld) 11.1 % 1.7-12.0 [facility] Neutrophils Auto (Bld) [#/Vo l]on 02-19-2024 Neutrophils (Bld) [#/Vol] 3.4 10 3/uL 1.4-6.5 [facility] Neutrophils/100 WBC Auto (Bl d)on 02-19-2024 Neutrophils/100 WBC (Bld) 64.3 % 43.0-75.0 [facility] No Panel Informationon 02-18 Eosinophils # (Auto) 0.1 10 3/uL 0.0-0.7 [facility] Immature Granulocyte # (Auto) 0.03 10 3/uL 0.00-0.03 [facility] Platelet mean volume Auto (B ld) [Entitic vol]on 02-19-2024 Platelet mean volume (Bld) [Entitic vol] 10.4 fL 9.5-13.5 [facility] Platelets Auto (Bld) [#/Vol] on 02-19-2024 Platelets (Bld) [#/Vol] 262 10 3/uL 150-450 [facility] RBC Auto (Bld) [#/Vol]on RBC (Bld) [#/Vol] 3.38 10 6/uL 4.20-5.40 [facility] Serum or plasma albumin/glob ulin mass ratioon 02-19-2024 Albumin/Globulin [Mass ratio] 1.1 {ratio} [facility] Serum or plasma anion gap de terminationon 02-19-2024 Anion gap [Moles/Vol] 12.3 mmol/L Fi [facility] Serum or plasma total choles terol/high density lipoprotein (HDL) cholesterol mass anastasia 02-19-2024 Cholesterol.total/Chol esterol in HDL [Mass ratio] 3.8 {ratio} [facility] Comment on above: 3.3 - 4.4 LOW RISK4. 4 - 7.1 AVERAGE RISK7.1 - 11.0 MODERATE RISK>11.0 HIGH RISK Basophils Auto (Bld) [#/Vol] on 02-18-2024 Basophils (Bld) [#/Vol] 0.0 10 3/uL 0.0-0.1 [facility] Basophils/100 WBC Auto (Bld) on 02-18-2024 Basophils/100 WBC (Bld) 0.4 % 0.2-2.0 [facility] Eosinophils/100 WBC Auto (Bl d)on 02-18-2024 Eosinophils/100 WBC (Bld) 1.2 % 0.9-7.0 [facility] Erythrocyte distribution wid th Auto (RBC) [Ratio]on 02-18-2024 Erythrocyte distribution width (RBC) [Ratio] 13.2 % 11.0-15.0 [facility] Estimated glomerular filtrat ion rate (GFR) non- Americanon 02-18-2024 GFR/1.73 sq M.predicted among non-blacks MDRD (S/P/Bld) [Vol rate/Area] 34 mL/min/{1.73_m2} >=60 [facility] Hematocrit Auto (Bld) [Volum e fraction]on 02-18-2024 Hematocrit (Bld) [Volume fraction] 31.7 % 36.0-48.0 [facility] Hemoglobin [Mass/volume] in Bloodon 02-18-2024 Hemoglobin (Bld) [Mass/Vol] 10.3 g/dL 12.0-16.0 [facility] Laboratory - Chemistry and C hemistry - challengeon 02-18-2024 Magnesium [Mass/Vol] 2.3 mg/dL 1.8-2.4 [facility] Natriuretic peptide B (Bld) [Mass/Vol] 800.0 pg/mL <=1800.0 [facility] Calcium [Mass/Vol] 9.0 mg/dL 8.5-10.1 [facility] Chloride [Moles/Vol] 106 mmol/L 98-107 [facility] CO2 [Moles/Vol] 30.4 mmol/L 21.0-32.0 [facility] Creatinine [Mass/Vol] 1.46 mg/dL 0.55-1.02 [facility] GFR/1.73 sq M.predicted MDRD (S/P/Bld) [Vol rate/Area] 42 mL/min/{1.73_m2} >=60 [facility] Glucose [Mass/Vol] 102 mg/dL 74-106 [facility] Potassium [Moles/Vol] 4.1 mmol/L 3.5-5.1 [facility] Sodium [Moles/Vol] 144 mmol/L 136-145 [facility] Urea nitrogen [Mass/Vol] 21.0 mg/dL 7.0-18.0 [facility] Urea nitrogen/Creatinine [Mass ratio] 14.4 mg/mg [facility] Laboratory - Hematology and Cell countson 02-18-2024 Immature granulocytes/100 WBC (Bld) 0.7 % 0.0-0.5 [facility] Leukocytes [#/volume] correc miguel for nucleated erythrocytes in Blood by Automated counon 02-18-2024 WBC corrected for nucl RBC Auto (Bld) [#/Vol] 6.8 10 3/uL 4.0-11.0 [facility] Lymphocytes Auto (Bld) [#/Vo l]on 02-18-2024 Lymphocytes (Bld) [#/Vol] 0.8 10 3/uL 1.2-3.8 [facility] Lymphocytes/100 WBC Auto (Bl d)on 02-18-2024 Lymphocytes/100 WBC (Bld) 11.2 % 20.5-60.0 [facility] MCH Auto (RBC) [Entitic mass ]on 02-18-2024 MCH (RBC) [Entitic mass] 29.3 pg 26.7-34.0 [facility] MCHC Auto (RBC) [Mass/Vol]on 02-18-2024 MCHC (RBC) [Mass/Vol] 32.5 g/dL 29.9-35.2 [facility] MCV Auto (RBC) [Entitic vol] on 02-18-2024 MCV (RBC) [Entitic vol] 90.1 fL 81.0-99.0 [facility] Monocytes Auto (Bld) [#/Vol] on 02-18-2024 Monocytes (Bld) [#/Vol] 0.6 10 3/uL 0.3-0.8 [facility] Monocytes/100 WBC Auto (Bld) on 02-18-2024 Monocytes/100 WBC (Bld) 9.5 % 1.7-12.0 [facility] Neutrophils Auto (Bld) [#/Vo l]on 02-18-2024 Neutrophils (Bld) [#/Vol] 5.2 10 3/uL 1.4-6.5 [facility] Neutrophils/100 WBC Auto (Bl d)on 04-22-2024 Neutrophils/100 WBC (Bld) 77.0 % 43.0-75.0 [facility] No Panel Informationon 02-17 Troponin I High Sensitivity 11.1 pg/mL 4.0-51.3 [facility] Comment on above: CUT-OFF POINTS [...] Eosinophils # (Auto) 0.1 10 3/uL 0.0-0.7 [facility] Immature Granulocyte # (Auto) 0.05 10 3/uL 0.00-0.03 [facility] Platelet mean volume Auto (B ld) [Entitic vol]on 02-18-2024 Platelet mean volume (Bld) [Entitic vol] 10.1 fL 9.5-13.5 [facility] Platelets Auto (Bld) [#/Vol] on 02-18-2024 Platelets (Bld) [#/Vol] 255 10 3/uL 150-450 [facility] RBC Auto (Bld) [#/Vol]on RBC (Bld) [#/Vol] 3.52 10 6/uL 4.20-5.40 [facility] Serum or plasma anion gap de terminationon 02-18-2024 Anion gap [Moles/Vol] 11.7 [facility] Basophils Auto (Bld) [#/Vol] on 02-02-2024 Basophils (Bld) [#/Vol] 0.1 10 3/uL 0.0-0.1 [facility] Basophils/100 WBC Auto (Bld) on 02-02-2024 Basophils/100 WBC (Bld) 1.1 % 0.2-2.0 [facility] Cholesterol in LDL Calc [Mas s/Vol]on 02-02-2024 Cholesterol in LDL [Mass/Vol] 113.6 mg/dL [facility] Comment on above: <100 mg/dl [id number] 0-129 mg/dl NEAR OR ABOVE [id number] mg/dl BORDERLINE [id number] mg/dl HIGH>190 mg/dl VERY HIGH Cholesterol in VLDL Calc [Ma ss/Vol]on 02-02-2024 Cholesterol in VLDL [Mass/Vol] 10.4 mg/dL [facility] Eosinophils/100 WBC Auto (Bl d)on 02-02-2024 Eosinophils/100 WBC (Bld) 2.3 % 0.9-7.0 [facility] Erythrocyte distribution wid th Auto (RBC) [Ratio]on 02-02-2024 Erythrocyte distribution width (RBC) [Ratio] 13.1 % 11.0-15.0 [facility] Estimated glomerular filtrat ion rate (GFR) non- Americanon 02-02-2024 GFR/1.73 sq M.predicted among non-blacks MDRD (S/P/Bld) [Vol rate/Area] 34 mL/min/{1.73_m2} >=60 [facility] Globulin Calc (S) [Mass/Vol] on 02-02-2024 Globulin (S) [Mass/Vol] 3.0 g/dL [facility] Hematocrit Auto (Bld) [Volum e fraction]on 02-02-2024 Hematocrit (Bld) [Volume fraction] 34.7 % 36.0-48.0 [facility] Hemoglobin [Mass/volume] in Bloodon 02-02-2024 Hemoglobin (Bld) [Mass/Vol] 10.9 g/dL 12.0-16.0 [facility] Laboratory - Chemistry and C hemistry - challengeon 02-02-2024 Albumin [Mass/Vol] 3.4 g/dL 3.4-5.0 [facility] ALP [Catalytic activity/Vol] 52 U/L 46-116 [facility] ALT [Catalytic activity/Vol] 13 U/L 14-59 [facility] AST [Catalytic activity/Vol] 14 U/L 15-37 [facility] Bilirubin [Mass/Vol] 0.3 mg/dL 0.2-1.0 [facility] Calcium [Mass/Vol] 9.3 mg/dL 8.5-10.1 [facility] Chloride [Moles/Vol] 109 mmol/L 98-107 [facility] Cholesterol [Mass/Vol] 169 mg/dL <=200 [facility] Cholesterol in HDL [Mass/Vol] 45 mg/dL 40-60 [facility] Comment on above: > or =60 mg/dl - LOW CARDIOVASCULAR RISK<40 mg/dl - HIGH CARDIOVASCULAR RISK CO2 [Moles/Vol] 29.8 mmol/L 21.0-32.0 [facility] Creatinine [Mass/Vol] 1.47 mg/dL 0.55-1.02 [facility] GFR/1.73 sq M.predicted MDRD (S/P/Bld) [Vol rate/Area] 41 mL/min/{1.73_m2} >=60 [facility] Glucose [Mass/Vol] 104 mg/dL 74-106 [facility] Potassium [Moles/Vol] 4.9 mmol/L 3.5-5.1 [facility] Protein [Mass/Vol] 6.4 g/dL 6.4-8.2 [facility] Sodium [Moles/Vol] 147 mmol/L 136-145 [facility] Triglyceride [Mass/Vol] 52 mg/dL <=150 [facility] TSH Qn 3.613 m[IU]/L 0.358-3.740 [facility] Urea nitrogen [Mass/Vol] 24.0 mg/dL 7.0-18.0 [facility] Urea nitrogen/Creatinine [Mass ratio] 16.3 mg/mg [facility] Laboratory - Hematology and Cell countson 02-02-2024 Immature granulocytes/100 WBC (Bld) 0.4 % 0.0-0.5 [facility] Leukocytes [#/volume] correc miguel for nucleated erythrocytes in Blood by Automated counon 02-02-2024 WBC corrected for nucl RBC Auto (Bld) [#/Vol] 5.6 10 3/uL 4.0-11.0 [facility] Lymphocytes Auto (Bld) [#/Vo l]on 02-02-2024 Lymphocytes (Bld) [#/Vol] 1.1 10 3/uL 1.2-3.8 [facility] Lymphocytes/100 WBC Auto (Bl d)on 02-02-2024 Lymphocytes/100 WBC (Bld) 20.2 % 20.5-60.0 [facility] MCH Auto (RBC) [Entitic mass ]on 02-02-2024 MCH (RBC) [Entitic mass] 29.8 pg 26.7-34.0 [facility] MCHC Auto (RBC) [Mass/Vol]on 02-02-2024 MCHC (RBC) [Mass/Vol] 31.4 g/dL 29.9-35.2 [facility] MCV Auto (RBC) [Entitic vol] on 02-02-2024 MCV (RBC) [Entitic vol] 94.8 fL 81.0-99.0 [facility] Monocytes Auto (Bld) [#/Vol] on 02-02-2024 Monocytes (Bld) [#/Vol] 0.7 10 3/uL 0.3-0.8 [facility] Monocytes/100 WBC Auto (Bld) on 02-02-2024 Monocytes/100 WBC (Bld) 11.7 % 1.7-12.0 [facility] Neutrophils Auto (Bld) [#/Vo l]on 02-02-2024 Neutrophils (Bld) [#/Vol] 3.6 10 3/uL 1.4-6.5 [facility] Neutrophils/100 WBC Auto (Bl d)on 02-02-2024 Neutrophils/100 WBC (Bld) 64.3 % 43.0-75.0 [facility] No Panel Informationon 02-01 Eosinophils # (Auto) 0.1 10 3/uL 0.0-0.7 [facility] Immature Granulocyte # (Auto) 0.02 10 3/uL 0.00-0.03 [facility] Platelet mean volume Auto (B ld) [Entitic vol]on 02-02-2024 Platelet mean volume (Bld) [Entitic vol] 10.6 fL 9.5-13.5 [facility] Platelets Auto (Bld) [#/Vol] on 02-02-2024 Platelets (Bld) [#/Vol] 253 10 3/uL 150-450 [facility] RBC Auto (Bld) [#/Vol]on RBC (Bld) [#/Vol] 3.66 10 6/uL 4.20-5.40 [facility] Serum or plasma albumin/glob ulin mass ratioon 02-02-2024 Albumin/Globulin [Mass ratio] 1.1 {ratio} [facility] Serum or plasma anion gap de terminationon 02-02-2024 Anion gap [Moles/Vol] 13.1 mmol/L Fi [facility] Serum or plasma total choles terol/high density lipoprotein (HDL) cholesterol mass anastasia 02-02-2024 Cholesterol.total/Chol esterol in HDL [Mass ratio] 3.8 {ratio} [facility] Comment on above: 3.3 - 4.4 LOW RISK4. 4 - 7.1 AVERAGE RISK7.1 - 11.0 MODERATE RISK>11.0 HIGH RISK UA RANDOM W/MICROSCOPICon Clarity (U) CLEAR CLEAR [employer] Other Color (U) DK YELLOW YELLOW [employer] Other Ketones Ql (U) Negative NEGATIVE mg/dL [employer] Other Leukocyte esterase Test strip Ql (U) Negative NEGATIVE [employer] Other pH (U) 6.5 [pH] 5.0-9.0 [employer] Other UA RANDOM W/MICROSCOPIC 0-2 #/HPF Abnormal NONE SEEN #/HPF [employer] Other UA RANDOM W/MICROSCOPIC 5-10 #/HPF Abnormal 0-2 #/HPF [employer] Other UA RANDOM W/MICROSCOPIC see note [employer] Other UA RANDOM W/MICROSCOPIC 1.010 1.005-1.025 [employer] Other UA RANDOM W/MICROSCOPIC Negative NEGATIVE [employer] Other UA RANDOM W/MICROSCOPIC LARGE Abnormal NEGATIVE [employer] Other UA RANDOM W/MICROSCOPIC Positive Abnormal NEGATIVE [employer] Other UA RANDOM W/MICROSCOPIC 1.0 EU/dL 0.2-1.0 EU/dL [employer] Other UA RANDOM W/MICROSCOPIC TRACE #/HPF Abnormal NONE SEEN #/HPF [employer] Other UA RANDOM W/MICROSCOPIC NONE SEEN NONE SEEN [employer] Other UA RANDOM W/MICROSCOPIC RARE #/LPF NONE/RARE #/LPF [employer] Other UA RANDOM W/MICROSCOPIC None Seen #/HPF None Seen #/HPF [employer] Other UA RANDOM W/MICROSCOPIC NONE SEEN #/LPF NONE SEEN #/LPF [employer] Other Urinalysis - DIPSTICKon 06-29 Appearance (U) clear [employer] Other Bilirubin Ql (U) Negative [employer] Other Color (U) light yellow [employer] Other Glucose Ql (U) Negative [employer] Other Hemoglobin Ql (U) +++ [employer] Other Ketones Ql (U) Negative [employer] Other Leukocyte esterase Test strip Ql (U) Negative [employer] Other Nitrite Ql (U) Negative [employer] Other pH (U) 0.2 [pH] [employer] Other Protein Ql (U) trace [employer] Other Specific gravity (U) [Rel density] 1.005 [employer] Other Urobilinogen (U) [Mass/Vol] off chart [employer] Other Urinalysis - DIPSTICK [employer] Other ESR Westergren method (Bld) [Velocity]on 06-05-2023 ESR (Bld) [Velocity] 119 mm/h High 0 - 20 mm/hr [facility] FERRITIN BLDon 06-05-2023 Ferritin [Mass/Vol] 160.0 ng/mL 14.7 - 205.1 ng/mL [facility] Iron and Iron binding capaci ty panelon 06-05-2023 Iron [Mass/Vol] 45 ug/dL 41 - 186 ug/dL [facility] Iron binding capacity [Mass/Vol] 252 ug/dL 232 - 386 ug/dL [facility] Iron/TIBC [Molar ratio] 17.9 % 15.0 - 57.0 % [facility] Basic metabolic 2000 panelon 06-04-2023 Anion gap [Moles/Vol] 10 mmol/L 9 - 18 mmol/L [facility] Calcium [Mass/Vol] 9.2 mg/dL 8.5 - 10. 2 mg/dL [facility] Chloride [Moles/Vol] 106 mmol/L High 97 - 10 5 mmol/L [facility] CO2 [Moles/Vol] 27 mmol/L 22 - 30 mmol/L [facility] Creatinine [Mass/Vol] 1.09 mg/dL High 0.58 - 0.96 mg/dL [facility] Estimated Glomerular Filtration Rate 51 mL/min/1.73m Low >=60 mL/min/1.73 m [facility] Glucose [Mass/Vol] 116 mg/dL High 74 - 99 mg/dL [facility] Potassium [Moles/Vol] 4.3 mmol/L 3.7 - 5.1 mmol/L [facility] Sodium [Moles/Vol] 143 mmol/L 136 - 144 mmol/L [facility] Urea nitrogen [Mass/Vol] 19 mg/dL 7 - 21 mg/dL [facility] CBC W Auto Differential pane l (Bld)on 06-04-2023 Basophils (Bld) [#/Vol] 0.04 10*3/uL <0.11 k/uL [facility] Basophils/100 WBC (Bld) 0.8 % [facility] Differential cell count method Nom (Bld) Auto [facility] Eosinophils (Bld) [#/Vol] 0.14 10*3/uL <0.46 k/uL [facility] Eosinophils/100 WBC (Bld) 2.9 % [facility] Erythrocyte distribution width (RBC) [Ratio] 13.6 % 11.5 - 15.0 % [facility] Hematocrit (Bld) [Volume fraction] 28.8 % Low 36.0 - 46.0 % [facility] Hemoglobin (Bld) [Mass/Vol] 9.2 g/dL Low 11.5 - 15.5 g/dL [facility] Immature granulocytes (Bld) [#/Vol] <0.10 k/uL [facility] Immature granulocytes/100 WBC (Bld) 0.4 % [facility] Lymphocytes (Bld) [#/Vol] 0.83 10*3/uL Low 1.00 - 4.00 k/uL [facility] Lymphocytes/100 WBC (Bld) 17.4 % [facility] MCH (RBC) [Entitic mass] 29.6 pg 26.0 - 34.0 pg [facility] MCHC (RBC) [Mass/Vol] 31.9 g/dL 30.5 - 36.0 g/dL [facility] MCV (RBC) [Entitic vol] 92.6 fL 80.0 - 100.0 fL [facility] Monocytes (Bld) [#/Vol] 0.40 10*3/uL <0.87 k/uL [facility] Monocytes/100 WBC (Bld) 8.4 % [facility] Neutrophils (Bld) [#/Vol] 3.35 10*3/uL 1.45 - 7.50 k/uL [facility] Neutrophils/100 WBC (Bld) 70.1 % [facility] Nucleated RBC (Bld) [#/Vol] <0.01 k/uL [facility] Nucleated RBC/100 WBC (Bld) [Ratio] 0.0 /100 WBC [facility] Platelet mean volume (Bld) [Entitic vol] 10.2 fL 9.0 - 12.7 fL [facility] Platelets (Bld) [#/Vol] 274 10*3/uL 150 - 400 k/uL [facility] RBC (Bld) [#/Vol] 3.11 10*6/uL Low 3.90 - 5.2 0 m/uL [facility] WBC (Bld) [#/Vol] 4.78 10*3/uL 3.70 - 11.00 k/uL [facility] RETIC COUNTon 06-04-2023 Reticulocytes (Bld) [#/Vol] 0.23549 10*3/uL 0.018 - 0.100 M/uL [facility] Reticulocytes (Bld) [#/Vol]o n 06-04-2023 Reticulocytes/100 RBC (Bld) 2.0 % 0.4 - 2.0 % [facility] Basophils Auto (Bld) [#/Vol] Ordered By: Lj Ryan on 05-18-2023 Basophils (Bld) [#/Vol] 0.0 10*3/uL 0.0-0.2 [facility] Basophils/100 WBC Auto (Bld) Ordered By: Lj Ryan on 05-18-2023 Basophils/100 WBC (Bld) 0.7 % . [facility] Calcium [Mass/volume] in Ser um or PlasmaOrdered By: Lj Ryan on 05-18-2023 Calcium [Mass/Vol] 8.9 mg/dL 8.6-10.3 [facility] Carbon dioxide, total [Moles /volume] in Serum or PlasmaOrdered By: Lj Ryan on 05-18-2023 CO2 [Moles/Vol] 30.5 mmol/L 21.0-31.0 [facility] Chloride [Moles/volume] in S courtney or PlasmaOrdered By: Lj Ryan on 05-18-2023 Chloride [Moles/Vol] 103 mmol/L 98-107 [facility] Creatinine [Mass/volume] in Serum or PlasmaOrdered By: Lj Ryan on 05-18-2023 Creatinine [Mass/Vol] 1.37 mg/dL 0.60-1.20 [facility] Eosinophils Auto (Bld) [#/Vo l]Ordered By: Lj Ryan on 05-18-2023 Eosinophils (Bld) [#/Vol] 0.1 10*3/uL 0.0-0.45 [facility] Eosinophils/100 WBC Auto (Bl d)Ordered By: Lj Ryan on 05-18-2023 Eosinophils/100 WBC (Bld) 1.9 % . [facility] Erythrocyte distribution wid th Auto (RBC) [Ratio]Ordered By: Lj Ryan on 05-18-2023 Erythrocyte distribution width (RBC) [Ratio] 14.1 % 11.9-15.3 [facility] Glucose [Mass/volume] in Ser um or PlasmaOrdered By: Lj Ryan on 05-18-2023 Glucose [Mass/Vol] 94 mg/dL 70-100 [facility] Comment on above: ADA recommended refe rence rangeRandom Glucose Reference Range is dependent on time and content of last meal. Glucose of more than 200 mg/dL in a nonstressed, ambulatory subject supports the diagnosis of Diabetes Mellitus. Hematocrit Auto (Bld) [Volum e fraction]Ordered By: Lj Ryan on 05-18-2023 Hematocrit (Bld) [Volume fraction] 28.2 % 34.0-46.4 [facility] Hemoglobin [Mass/volume] in BloodOrdered By: Lj Ryan on 05-18-2023 Hemoglobin (Bld) [Mass/Vol] 9.7 g/dL 11.8-15.4 [facility] Leukocytes [#/volume] correc miguel for nucleated erythrocytes in Blood by Automated counOrdered By: Lj Ryan on 05-18-2023 WBC corrected for nucl RBC Auto (Bld) [#/Vol] 6.0 10*3/uL 3.8-11.6 [facility] Lymphocytes Auto (Bld) [#/Vo l]Ordered By: Lj Ryan on 05-18-2023 Lymphocytes (Bld) [#/Vol] 0.9 10*3/uL 1.00-4.8 [facility] Lymphocytes/100 WBC Auto (Bl d)Ordered By: Lj Ryan on 05-18-2023 Lymphocytes/100 WBC (Bld) 15.1 % . [facility] MCH Auto (RBC) [Entitic mass ]Ordered By: Lj Ryan on 05-18-2023 MCH (RBC) [Entitic mass] 30.2 pg 24.7-34.3 [facility] MCHC Auto (RBC) [Mass/Vol]Or dered By: Lj Ryan on 05-18-2023 MCHC (RBC) [Mass/Vol] 34.4 g/dL 32.0-35.0 [facility] MCV Auto (RBC) [Entitic vol] Ordered By: Lj Ryan on 05-18-2023 MCV (RBC) [Entitic vol] 87.7 fL 80-100 [facility] Magnesium [Mass/volume] in S courtney or PlasmaOrdered By: Lj Ryan on 05-18-2023 Magnesium [Mass/Vol] 2.1 mg/dL 1.9-2.7 [facility] Monocytes Auto (Bld) [#/Vol] Ordered By: Lj Ryan on 05-18-2023 Monocytes (Bld) [#/Vol] 0.5 10*3/uL 0.0-0.8 [facility] Monocytes/100 WBC Auto (Bld) Ordered By: Lj Ryan on 05-18-2023 Monocytes/100 WBC (Bld) 8.7 % . [facility] Neutrophils Auto (Bld) [#/Vo l]Ordered By: Lj Ryan on 05-18-2023 Neutrophils (Bld) [#/Vol] 4.4 10*3/uL 1.8-7.7 [facility] Neutrophils/100 WBC Auto (Bl d)Ordered By: Lj Ryan on 05-18-2023 Neutrophils/100 WBC (Bld) 73.6 % . [facility] No Panel InformationOrdered By: Lj Ryan on 05-18-2023 Estimated GFR (CKD-EPI) 39.034 mL/Min [facility] Creatinine Clearance (Chem 38.04 [facility] Nucleated erythrocytes [Pres ence] in Blood by Automated countOrdered By: Lj Ryan on 05-18-2023 Nucleated RBC Auto Ql (Bld) 0.1 /100{WBC} 0-0.5 [facility] Phosphate [Mass/volume] in S courtney or PlasmaOrdered By: Lj Ryan on 05-18-2023 Phosphate [Mass/Vol] 5.3 mg/dL 3.7-7.2 [facility] Platelet mean volume Auto (B ld) [Entitic vol]Ordered By: Lj Ryan on 05-18-2023 Platelet mean volume (Bld) [Entitic vol] 7.8 fL 6.3-10.7 [facility] Platelets Auto (Bld) [#/Vol] Ordered By: Lj Ryan on 05-18-2023 Platelets (Bld) [#/Vol] 314 10*3/uL 150-450 [facility] Potassium [Moles/volume] in Serum or PlasmaOrdered By: Lj Ryan on 05-18-2023 Potassium [Moles/Vol] 4.0 mmol/L 3.5-5.1 [facility] RBC Auto (Bld) [#/Vol]Ordere d By: Lj Ryan on 05-18-2023 RBC (Bld) [#/Vol] 3.21 10*6/uL 3.60-5.00 [facility] Serum or plasma anion gap de terminationOrdered By: Lj Ryan on 05-18-2023 Anion gap [Moles/Vol] 12.5 mmol/L 6.0-15.0 [facility] Sodium [Moles/volume] in Ser um or PlasmaOrdered By: Lj Ryan on 05-18-2023 Sodium [Moles/Vol] 142 mmol/L 136-145 [facility] Urea nitrogen [Mass/volume] in Serum or PlasmaOrdered By: Lj Ryan on 05-18-2023 Urea nitrogen [Mass/Vol] 21 mg/dL 7-25 [facility] WBC Auto (Bld) [#/Vol]Ordere d By: Lj Ryan on 05-18-2023 WBC (Bld) [#/Vol] 6.0 10*3/uL 3.8-11.6 [facility] Alanine aminotransferase [En zymatic activity/volume] in Serum or PlasmaOrdered By: Fernando Ch on 05-17-2023 ALT [Catalytic activity/Vol] 14 U/L 7-52 [facility] Albumin [Mass/volume] in Ser um or Plasma by Bromocresol green (BCG) dye binding methoOrdered By: Fernando Ch on 05-17-2023 Albumin BCG dye [Mass/Vol] 4.0 g/dL 3.5-5.7 [facility] Alkaline phosphatase [Enzyma tic activity/volume] in Serum or PlasmaOrdered By: Fernando Ch on 05-17-2023 ALP [Catalytic activity/Vol] 44 U/L 34-104 [facility] Aspartate aminotransferase [ Enzymatic activity/volume] in Serum or PlasmaOrdered By: Fernando Ch on 05-17-2023 AST [Catalytic activity/Vol] 16 U/L 13-39 [facility] Bilirubin.total [Mass/volume ] in Serum or PlasmaOrdered By: Fernando Ch on 05-17-2023 Bilirubin [Mass/Vol] 0.7 mg/dL 0.3-1.0 [facility] Creatine kinase [Enzymatic a ctivity/volume] in Serum or PlasmaOrdered By: Fernando Ch on 05-17-2023 CK [Catalytic activity/Vol] 49 U/L 30-223 [facility] Globulin Calc (S) [Mass/Vol] Ordered By: Fernando Ch on 05-17-2023 Globulin (S) [Mass/Vol] 2.9 g/dL [facility] Laboratory - CoagulationOrde red By: Fernando Ch on 05-17-2023 PT Coag (PPP) [Time] 12.5 s 9.0-12.9 [facility] Monocyte distribution width [Entitic volume] in Blood by AutomatedOrdered By: Fernando Ch on 05-17-2023 Monocyte distribution width Auto (Bld) [Entitic vol] 22.37 % 0.00-20.00 [facility] Comment on above: For adults in ED, MD W > 20.0 may be associated with a higher risk of sepsis during the first 12 hrs of hospital admission Natriuretic peptide B [Mass/ Vol]Ordered By: Fernando Ch on 05-17-2023 Natriuretic peptide B (Bld) [Mass/Vol] 450.0 pg/mL 5-100 [facility] Platelet poor plasma interna tional normalized ratio (INR) by coagulation assay (relatOrdered By: Fernando Ch on 05-17-2023 INR Coag (PPP) [Relative time] 1.1 {INR} [facility] Comment on above: INR Therapeutic [...] on 05-17-2023 Protein [Mass/Vol] 6.9 g/dL 6.4-8.9 [facility] Serum or plasma albumin/glob ulin mass ratioOrdered By: Fernando Ch on 05-17-2023 Albumin/Globulin [Mass ratio] 1.4 {ratio} [facility] Troponin I.cardiac [Mass/vol ume] in Serum or Plasma by Detection limit <= 0.01 ng/Ordered By: Fernando Ch on 05-17-2023 Troponin I.cardiac DL <= 0.01 ng/mL [Mass/Vol] 10.2 pg/mL 0.0-15.0 [facility] Activated partial thrombopla stin time (aPTT) in platelet poor plasma by coagulation aOrdered By: Jonna Perry on 03-08-2023 aPTT Coag (PPP) [Time] 32.0 s 25.1-36.5 [facility] Band form neutrophils/100 WB C Manual cnt (Bld)Ordered By: Jonna Perry on 03-08-2023 Band form neutrophils/100 WBC (Bld) 4 % 0-5 [facility] Basophils Auto (Bld) [#/Vol] Ordered By: Jonna Perry on 03-08-2023 Basophils (Bld) [#/Vol] N/A [facility] Basophils/100 WBC Auto (Bld) Ordered By: Jonna Perry on 03-08-2023 Basophils/100 WBC (Bld) N/A [facility] Basophils/100 WBC Manual cnt (Bld)Ordered By: Jonna Perry on 03-08-2023 Basophils/100 WBC (Bld) 0 % 0-2 [facility] Carbon dioxide, total [Moles /volume] in Serum or PlasmaOrdered By: Jonna Perry on 03-08-2023 CO2 [Moles/Vol] 33.1 mmol/L 21.0-31.0 [facility] Chloride [Moles/volume] in S courtney or PlasmaOrdered By: Jonna Perry on 03-08-2023 Chloride [Moles/Vol] 104 mmol/L 98-107 [facility] Cholesterol [Mass/volume] in Serum or PlasmaOrdered By: Jonna Perry on 03-08-2023 Cholesterol [Mass/Vol] 151 mg/dL 140-200 [facility] Comment on above: Chol less than 200 m g/dl low riskChol 201-239 mg/dl borderline riskChol 240 mg/dl and greater high risk Cholesterol in LDL Calc [Mas s/Vol]Ordered By: Jonna Perry on 03-08-2023 Cholesterol in LDL [Mass/Vol] 100 mg/dL 0-100 [facility] Comment on above: LDL ATP III CLASSIFI CATIONLDL less than 100 mg/dL OptimalLDL 100-129 mg/dL Near or above optimalLDL 130-159 mg/dL Borderline highLDL 160-189 mg/dL HighLDL greater than 189 mg/dL Very high Cholesterol in VLDL Calc [Ma ss/Vol]Ordered By: Jonna Perry on 03-08-2023 Cholesterol in VLDL [Mass/Vol] 13 mg/dL [facility] Creatinine [Mass/volume] in Serum or PlasmaOrdered By: Jonna Perry on 03-08-2023 Creatinine [Mass/Vol] 1.14 mg/dL 0.60-1.20 [facility] Eosinophils Auto (Bld) [#/Vo l]Ordered By: Jonna Perry on 03-08-2023 Eosinophils (Bld) [#/Vol] N/A [facility] Eosinophils/100 WBC Auto (Bl d)Ordered By: Jonna Perry on 03-08-2023 Eosinophils/100 WBC (Bld) N/A [facility] Eosinophils/100 WBC Manual c nt (Bld)Ordered By: Jonna Perry on 03-08-2023 Eosinophils/100 WBC (Bld) 2 % 1-3 [facility] Erythrocyte distribution wid th Auto (RBC) [Ratio]Ordered By: Jonna Perry on 03-08-2023 Erythrocyte distribution width (RBC) [Ratio] 14.1 % 11.9-15.3 [facility] Hematocrit Auto (Bld) [Volum e fraction]Ordered By: Jonna Perry on 03-08-2023 Hematocrit (Bld) [Volume fraction] 30.7 % 34.0-46.4 [facility] Hemoglobin [Mass/volume] in BloodOrdered By: Jonna Perry on 03-08-2023 Hemoglobin (Bld) [Mass/Vol] 10.3 g/dL 11.8-15.4 [facility] Laboratory - Chemistry and C hemistry - challengeon 03-08-2023 Cholesterol [Mass/Vol] 151\S\151 [facility] 140-[facility] Work Phone: Comment on above: Chol less than 200 m g/dl low risk Chol 201-239 mg/dl borderline risk Chol 240 mg/dl and greater high risk Cholesterol in LDL [Mass/Vol] 100\S\100 [facility] Work Phone: Comment on above: LDL ATP III CLASSIFI CATION LDL less than 100 mg/dL Optimal LDL 100-129 mg/dL Near or above optimal LDL 130-159 mg/dL Borderline high LDL 160-189 mg/dL High LDL greater than 189 mg/dL Very high Laboratory - CoagulationOrde red By: Jonna Perry on 03-08-2023 PT Coag (PPP) [Time] 12.2 s 9.0-12.9 [facility] Leukocytes [#/volume] correc miguel for nucleated erythrocytes in Blood by Automated counOrdered By: Jonna Perry on 03-08-2023 WBC corrected for nucl RBC Auto (Bld) [#/Vol] 6.2 10*3/uL 3.8-11.6 [facility] Lymphocytes Auto (Bld) [#/Vo l]Ordered By: Jonna Perry on 03-08-2023 Lymphocytes (Bld) [#/Vol] N/A [facility] Lymphocytes/100 WBC Auto (Bl d)Ordered By: Jonna Perry on 03-08-2023 Lymphocytes/100 WBC (Bld) N/A [facility] Lymphocytes/100 WBC Manual c nt (Bld)Ordered By: Jonna Perry on 03-08-2023 Lymphocytes/100 WBC (Bld) 16 % 18-42 [facility] MCH Auto (RBC) [Entitic mass ]Ordered By: Jonna Perry on 03-08-2023 MCH (RBC) [Entitic mass] 29.0 pg 24.7-34.3 [facility] MCHC Auto (RBC) [Mass/Vol]Or dered By: Jonna Perry on 03-08-2023 MCHC (RBC) [Mass/Vol] 33.6 g/dL 32.0-35.0 [facility] MCV Auto (RBC) [Entitic vol] Ordered By: Jonna Perry on 03-08-2023 MCV (RBC) [Entitic vol] 86.2 fL 80-100 [facility] Metamyelocytes/100 WBC Manua l cnt (Bld)Ordered By: Jonna Perry on 03-08-2023 Metamyelocytes/100 WBC (Bld) 1 % 0-0 [facility] Monocytes Auto (Bld) [#/Vol] Ordered By: Jonna Perry on 03-08-2023 Monocytes (Bld) [#/Vol] N/A [facility] Monocytes/100 WBC Auto (Bld) Ordered By: Jonna Perry on 03-08-2023 Monocytes/100 WBC (Bld) N/A [facility] Monocytes/100 WBC Manual cnt (Bld)Ordered By: Jonna Perry on 03-08-2023 Monocytes/100 WBC (Bld) 3 % 2-11 [facility] Neutrophils Auto (Bld) [#/Vo l]Ordered By: Jonna Perry on 03-08-2023 Neutrophils (Bld) [#/Vol] N/A [facility] Neutrophils/100 WBC Auto (Bl d)Ordered By: Jonna Perry on 03-08-2023 Neutrophils/100 WBC (Bld) N/A [facility] No Panel InformationOrdered By: Jonna Perry on 03-08-2023 Estimated GFR (CKD-EPI) 48.665 mL/Min [facility]acy Creatinine Clearance (Chem N/A [facility] No Panel Informationon 03-08 32.0\S\32.0 Normal 25.1-36.5 -[facility] y 250 DO Work Phone: Comment on above: PERFORMED BY:[facility] [place], [place] [id number] MEDICAL DIRECTORJAMAAL MO M.D. 1.1\S\1.1 Normal [facility] y 250 DO Work Phone: [phone] Comment on above: INR Therapeutic Rang [...] valves: 3 - 4.5 12.2\S\12.2 Normal 9.0-12.9 [facility] y 250 DO Work Phone: [phone] 9.0\S\9.0 Normal 6.3-10.7 [facility] y 250 DO Work Phone: [phone] 33.1\S\33.1 above high threshold 21.0-31.0 [facility] y 250 DO Work Phone: [phone] 104\S\104 Normal 98-107 [facility] Lu y 250 DO Work Phone: [phone] 5.1\S\5.1 Normal 3.5-5.1 [facility] y 250 DO Work Phone: [phone] 141\S\141 Normal 136-145 [facility] y 250 DO Work Phone: [phone] 21\S\21 Normal 7-25 [facility] y 250 DO Work Phone: [phone] 48.665\S\48.665 Normal [facility] y 250 DO Work Phone: [phone] 1.14\S\1.14 Normal 0.60-1.20 [facility] y 250 DO Work Phone: [phone] 4.0\S\4.0 Normal <5.0 [facility] y 250 DO Work Phone: Comment on above: PERFORMED BY:[facility] [place], [place] [id number] MEDICAL DIRECTORJAMAAL MO M.D. 13\S\13 Normal [facility] Lu [place] 250 DO Work Phone: 67\S\67 Normal 0-149 [facility] Lu melton 250 DO Work Phone: Comment on above: TRIG ATP III CLASSIF ICATION TRIG less than 150 mg/dL Normal TRIG 150-199 mg/dL Borderline high TRIG 200-500 mg/dL High TRIG greater than 500 mg/dL Very high Standard traceable to the Center for Disease Conrtrol and Prevention (CDC) test method. 38\S\38 Normal 35-85 [facility] Lu mel[place] 250 DO Work Phone: Comment on above: HDL CHOL ATP-III CLA SSIFICATION Cardiovascular Risk HDL > or equal to 60 mg/dL LOW HDL < 40 mg/dL HIGH 74\S\74 above high threshold 50-70 [facility] Lu [address] 250 DO Work Phone: 276\S\276 Normal 150-450 [facility] Lu mel[place] 250 DO Work Phone: 14.1\S\14.1 Normal 11.9-15.3 [facility] Lu [address] 250 DO Work Phone: [phone] 33.6\S\33.6 Normal 32.0-35.0 [facility] HeartEmperatriz mel[place] 250 DO Work Phone: 29.0\S\29.0 Normal 24.7-34.3 [facility] Heart[facility]peratriz mel[place] 250 DO Work Phone: 1\S\1 above high threshold 0-0 [facility] HeartEmperatriz melton 250 DO Work Phone: 0\S\0 Normal 0-2 [facility] y 250 DO Work Phone: [phone] 2\S\2 Normal 1-3 [facility] y 250 DO Work Phone: [phone] 3\S\3 Normal 2-11 [facility] [facility] 250 DO Work Phone: [phone] 16\S\16 below low threshold 18-42 [facility] y 250 DO Work Phone: [phone] 4\S\4 Normal 0-5 [facility] y 250 DO Work Phone: [phone] Slight Normal [facility] y 250 DO Work Phone: [phone] Comment on above: PERFORMED BY:[place] [address] [address] [place], [place] [id number] MEDICAL DIRECTORJAMAAL MO M.D. Normal Normal Normal [facility] y 250 DO Work Phone: [phone] 86.2\S\86.2 Normal 80-100 [facility] y 250 DO Work Phone: [phone] 30.7\S\30.7 below low threshold 34.0-46.4 [facility] [facility] 250 DO Work Phone: [phone] 10.3\S\10.3 below low threshold 11.8-15.4 [facility] HeartMarlen[facility] y 250 DO Work Phone: [phone] 3.56\S\3.56 below low threshold 3.60-5.00 [facility] [facility] 250 DO Work Phone: [phone] 8.6\S\8.6 Normal 3.8-11.6 [facility] [facility] 250 DO Work Phone: [phone] 6.2\S\6.2 Normal 3.8-11.6 [facility] y 250 DO Work Phone: [phone] Nucleated erythrocytes [Pres ence] in Blood by Automated countOrdered By: Jonna Perry on 03-08-2023 Nucleated RBC Auto Ql (Bld) N/A [facility] Ovalocyte detectionOrdered B y: Jonna Perry on 03-08-2023 Ovalocytes LM Ql (Bld) Slight Fi [facility] Platelet adequacy [Presence] in Blood by Light microscopyOrdered By: Jonna Perry on 03-08-2023 Platelets LM Ql (Bld) Normal Normal [facility] Platelet mean volume Auto (B ld) [Entitic vol]Ordered By: Jonna Perry on 03-08-2023 Platelet mean volume (Bld) [Entitic vol] 9.0 fL 6.3-10.7 [facility] Platelet morphology finding [Identifier] in BloodOrdered By: Jonna Perry on 03-08-2023 Platelet morphology finding Nom (Bld) N/A [facility] Platelet poor plasma interna tional normalized ratio (INR) by coagulation assay (relatOrdered By: Jonna Perry on 03-08-2023 INR Coag (PPP) [Relative time] 1.1 {INR} [facility] Comment on above: INR Therapeutic [...] 03-08-2023 Platelets (Bld) [#/Vol] 276 10*3/uL 150-450 [facility] Platelets Large [Presence] i n Blood by Light microscopyOrdered By: Jonna Perry on 03-08-2023 Platelets Large LM Ql (Bld) Slight [facility] Poikilocytosis [Presence] in Blood by Light microscopyOrdered By: Jonna Perry on 03-08-2023 Poikilocytosis LM Ql (Bld) Slight [facility] Potassium [Moles/volume] in Serum or PlasmaOrdered By: Jonna Perry on 03-08-2023 Potassium [Moles/Vol] 5.1 mmol/L 3.5-5.1 [facility] RBC Auto (Bld) [#/Vol]Ordere d By: Jonna Perry on 03-08-2023 RBC (Bld) [#/Vol] 3.56 10*6/uL 3.60-5.00 [facility] RBC morphologyOrdered By: Jonna Perry on 03-08-2023 RBC morphology finding Nom (Bld) N/A [facility] Segmented neutrophils/100 WB C Manual cnt (Bld)Ordered By: Jonna Perry on 03-08-2023 Segmented neutrophils/100 WBC (Bld) 74 % 50-70 [facility] Serum or plasma anion gap de terminationOrdered By: Jonna Perry on 03-08-2023 Anion gap [Moles/Vol] 9.0 mmol/L 6.0-15.0 [facility] Serum or plasma high density lipoprotein (HDL) cholesterol measurementOrdered By: Jonna Perry on 03-08-2023 Cholesterol in HDL [Mass/Vol] 38 mg/dL 35-85 [facility] Comment on above: HDL CHOL ATP-III CLA SSIFICATION Cardiovascular RiskHDL > or equal to 60 mg/dL LOWHDL < 40 mg/dL HIGH Serum or plasma total choles terol/high density lipoprotein (HDL) cholesterol mass ratOrdered By: Jonna Perry on 03-08-2023 Cholesterol.total/Chol esterol in HDL [Mass ratio] 4.0 {ratio} <5.0 [facility] Sodium [Moles/volume] in Ser um or PlasmaOrdered By: Jonna Perry on 03-08-2023 Sodium [Moles/Vol] 141 mmol/L 136-145 [facility] Triglyceride [Mass/volume] i n Serum or PlasmaOrdered By: Jonna Perry on 03-08-2023 Triglyceride [Mass/Vol] 67 mg/dL 0-149 [facility] Comment on above: TRIG ATP III CLASSIF ICATIONTRIG less than 150 mg/dL NormalTRIG 150-199 mg/dL Borderline highTRIG 200-500 mg/dL High TRIG greater than 500 mg/dL Very highStandard traceable to the Center for Disease Conrtrol and Prevention (CDC) test method. Urea nitrogen [Mass/volume] in Serum or PlasmaOrdered By: Jonna Perry on 03-08-2023 Urea nitrogen [Mass/Vol] 21 mg/dL 7-25 [facility] WBC Auto (Bld) [#/Vol]Ordere d By: Jonna Perry on 03-08-2023 WBC (Bld) [#/Vol] 8.6 10*3/uL 3.8-11.6 [facility] Office Visit (Cardiology)on 03-07-2023 Follow-up visit [...] associated with accelerated hypertension, was admitted to [facility] briefly, diuresed approximately 14 pounds with diuretics. [...] complaint. Vitals Vital Signs Recorded: 07Mar2023 10:14AMRecorded: [id number] 10:04AM [id number], RUE, [id number] (more content not included)... Normal [employer] Tobacco Screening.on 023 Adult depression screening assessment No [facility] [employer] [facility] y 250 DO Work Phone: Fall risk assessment a) No falls within the last year [facility] y 250 DO Work Phone: Tobacco use status [facility]PHS b) No [facility] y 250 DO Work Phone: CBC AUTO DIFFon 03-01-2023 BASO # 0.0 103/ul Normal 0.0-0.[address] [facility] Comment on above: Performed By: #### C BC #### [facility] [address] [address] [address] Jose David Shanks Basophils/100 WBC (Bld) 0.5 % Normal 0.2-2.[address] [facility] Comment on above: Performed By: #### C BC #### [facility] [address] [address] [address] Jose David Shanks EO # 0.1 103/ul Normal 0.0-0.[address] [facility] Comment on above: Performed By: #### C BC #### [facility] [address] [address] [address] Jose David Shanks Eosinophils/100 WBC (Bld) 1.2 % Normal 0.9-7.[address] [facility] Comment on above: Performed By: #### C BC #### [facility] [address] [address] [address] Jose David Shanks Erythrocyte distribution width (RBC) [Ratio] 13.2 % Normal 11.0-15.[address] [facility] Comment on above: Performed By: #### C BC #### [facility] [address] [place] [address] Dr. Jose David Shanks Hematocrit (Bld) [Volume fraction] 33.9 % Critically low 36.0-48.[address] [facility] Comment on above: Performed By: #### C BC #### [facility] [address] [place] [address] Dr. Jose David Shanks Hemoglobin (Bld) [Mass/Vol] 11.0 g/dL Critically low 12.0-16.[address] [facility] Comment on above: Performed By: #### C BC #### [facility] [address] [place] [address] Dr. Jose David Shanks IG # 0.03 10e3/ul Normal 0.00-0.[address] [facility] Comment on above: Performed By: #### C BC #### [facility] [address] [place] [address] Dr. Jose David Shanks IG % 0.5 % Normal 0.0-0.[address] [facility] Comment on above: Performed By: #### C BC #### [facility] [address] [place] [address] Dr. Jose David Shanks LYMPH # 0.8 103/ul Critically low 1.2-3.8 [facility] Comment on above: Performed By: #### C BC #### [facility] [address] [place] [address] Dr. Jose David Shanks Lymphocytes/100 WBC (Bld) 13.7 % Critically low 20.5-60.[address] [facility] Comment on above: Performed By: #### C BC #### [facility] [address] [place] [address] Dr. Jose David Shanks MANUAL DIFF REQ NO Normal [facility] Comment on above: Performed By: #### C BC #### [facility] [address] [place] [address] Dr. Jose David Shanks MCH (RBC) [Entitic mass] 28.9 pg Normal 26.7-34.0 [facility] Comment on above: Performed By: #### C BC #### [facility] [address] [place] [address] Dr. Jose David Shanks MCHC (RBC) [Mass/Vol] 32.4 g/dL Normal 29.9-35.2 [facility] Comment on above: Performed By: #### C BC #### [facility] [address] [place] [address] Dr. Jose David Shanks MCV (RBC) [Entitic vol] 89.0 fL Normal 81.0-99.[address] [facility] Comment on above: Performed By: #### C BC #### [facility] [address] [place] [address] Dr. Jose David Shanks MONO # 0.5 103/ul Normal 0.3-0.8 [facility] Comment on above: Performed By: #### C BC #### [facility] [address] [place] [address] Dr. Jose David Shanks Monocytes/100 WBC (Bld) 8.2 % Normal 1.7-12.[address] [facility] Comment on above: Performed By: #### C BC #### [facility] [address] [place] [address] Dr. Jose David Shanks NEUT # 4.3 103/ul Normal 1.4-6.5 [facility] Comment on above: Performed By: #### C BC #### [facility] [address] [place] [address] Dr. Jose David Shanks Neutrophils/100 WBC (Bld) 75.9 % Critically high 43.0-75.0 [facility] Comment on above: Performed By: #### C BC #### [facility] [address] [place] [address] Dr. Jose David Shanks Platelet mean volume (Bld) [Entitic vol] 10.1 fL Normal 9.5-13.5 [facility] Comment on above: Performed By: #### C BC #### [facility] [address] [place] [address] Dr. Jose David Shanks PLT 279 103/ul Normal 150-450 [facility] Comment on above: Performed By: #### C BC #### [facility] [address] [place] [address] Dr. Jose David Shanks RBC 3.81 106/ul Critically low 4.20-5.40 [facility] Comment on above: Performed By: #### C BC #### [facility] [address] [place] [address] Dr. Jose David Shanks WBC 5.7 103/ul Normal 4.0-11.[address] [facility] Comment on above: Performed By: #### C BC #### [facility] [address] [place] [address] Dr. Jose David Shanks FERRITINon 03-01-2023 Ferritin [Mass/Vol] 180.0 ng/mL Normal 8.0-252.[address] [facility] Comment on above: Performed By: #### C BC #### [facility] [address] [place] [address] Dr. Jose David Shanks IRON AND TIBCon 03-01-2023 % SATURATION 23.6 % Normal [facility] Comment on above: Performed By: #### C BC #### [facility] [address] [place] [address] Dr. Jose David Shanks Iron [Mass/Vol] 61.0 ug/dL Normal 50.0-170.0 [facility] Comment on above: Performed By: #### C BC #### [facility] [address] [place] [address] Dr. Jose David Shanks TIBC DIRECT 258.0 ug/dL Normal 250.0-450.0 [facility] Comment on above: Performed By: #### C BC #### [facility] [address] [place] [address] Dr. Jose David Shanks NM STRESS/REST MULTIon 03-01 NM STRESS/REST MULTI Patient: GERMANIA JOAQUINManuel Exam Date: 03/01/2023 : 1940 Gender:F Ordering : DR NATHAN HATHAWAY D.O. Admission #: [id number] Family : Order #: [id number] CLICK HERE TO VIEW EXAM RADIOLOGY REPORT [...] study was abnormal per attending physician Dr. Ntaalio Hathaway due to EKG changes. For more details please see separate cardiac stress test report. FINDINGS: QUALITY OF STUDY: PERFUSION DEFECT: LOCATION: Mid-anterior. Apical anterior. [place]. SIZE: Medium (3-4 segments). SEVERITY: Moderate. TYPE: [...] MD on 03/01/2023 at 14:54 Normal [facility] PROF CHEM 8 (BAS METB)on Anion gap [Moles/Vol] 8.8 mmol/L Normal [facility] Comment on above: Performed By: #### L ACT #### [facility] [address] [place] [address] Dr. Jose David Shanks Calcium [Mass/Vol] 9.0 mg/dL Normal 8.5-10.1 [facility] Comment on above: Performed By: #### L ACT #### [facility] [address] [address] [address] Jose David Shanks Chloride [Moles/Vol] 106 mmol/L Normal 98-[address] [facility] Comment on above: Performed By: #### L ACT #### [facility] [address] [address] [address] Jose David Shanks CO2 [Moles/Vol] 31.0 mmol/L Normal 21.0-32.0 [facility] Comment on above: Performed By: #### L ACT #### [facility] [address] [address] [address] Jose David Shanks Creatinine [Mass/Vol] 1.18 mg/dL Critically high 0.55-1.[address] [facility] Comment on above: Performed By: #### L ACT #### [facility] [address] [address] [address] Jose David Shanks EGFR-AF LIBYAN 53 mL/min/1.73m2 Critically low >=[address] [facility] Comment on above: Performed By: #### L ACT #### [facility] [address] [address] [address] Jose David Shanks EGFR-NON AF LIBYAN 44 mL/min/1.73m2 Critically low >=[address] [facility] Comment on above: Performed By: #### L ACT #### [facility] [address] [place] [address] Dr. Jose David Shanks Glucose [Mass/Vol] 98 mg/dL Normal 74-106 [facility] Comment on above: Performed By: #### L ACT #### [facility] [address] [address] [address] Jose David Shanks Potassium [Moles/Vol] 4.8 mmol/L Normal 3.5-5.[address] [facility] Comment on above: Performed By: #### L ACT #### [facility] [address] [address] [address] Jose David Shanks Sodium [Moles/Vol] 141 mmol/L Normal 136-145 [facility] Comment on above: Performed By: #### L ACT #### [facility] [address] [address] [address] Jose David Shanks Urea nitrogen [Mass/Vol] 16.0 mg/dL Normal 7.0-18.[address] [facility] Comment on above: Performed By: #### L ACT #### [facility] [address] [place] [address] Dr. Jose David Shanks Urea nitrogen/Creatinine [Mass ratio] 13.6 mg/mg Normal [facility] Comment on above: Performed By: #### L ACT #### [facility] [address] [place] [address] Dr. Jose David Shanks RETICULOCYTEon 03-01-2023 RETIC 1.51 % Normal 0.60-3.10 [facility] Comment on above: Performed By: #### C BC #### [facility] [address] [place] [address] Dr. Jose David Shanks VIT B12 AND FOLATEon 023 Cobalamin (Vitamin B12) [Mass/Vol] 1406.0 pg/mL Critically high 193.0-986.[address] [facility] Comment on above: Performed By: #### C BC #### [facility] [address] [place] [address] Dr. Jose David Shanks FOLATE 19.00 ng/mL Normal 8.60-58.[address] [facility] Comment on above: Performed By: #### C BC #### [facility] [address] [place] [address] Dr. Jose David Shanks CBC AUTO DIFFon 02-09-2023 BASO # 0.0 103/ul Normal 0.0-0.[address] [facility] Comment on above: Performed By: #### C BC #### [facility] [address] [place] [address] Dr. Jose David Shanks Basophils/100 WBC (Bld) 0.6 % Normal 0.2-2.0 [facility] Comment on above: Performed By: #### C BC #### [facility] [address] [place] [address] Dr. Jose David Shanks EO # 0.1 103/ul Normal 0.0-0.[address] [facility] Comment on above: Performed By: #### C BC #### [facility] [address] [place] [address] Dr. Jose David Shanks Eosinophils/100 WBC (Bld) 2.7 % Normal 0.9-7.[address] [facility] Comment on above: Performed By: #### C BC #### [facility] [address] [place] [address] Dr. Jose David Shanks Erythrocyte distribution width (RBC) [Ratio] 13.5 % Normal 11.0-15.[address] [facility] Comment on above: Performed By: #### C BC #### [facility] [address] [place] [address] Dr. Jose David Shanks Hematocrit (Bld) [Volume fraction] 30.0 % Critically low 36.0-48.[address] [facility] Comment on above: Performed By: #### C BC #### [facility] [address] [place] [address] Dr. Jose David Shanks Hemoglobin (Bld) [Mass/Vol] 10.0 g/dL Critically low 12.0-16.[address] [facility] Comment on above: Performed By: #### C BC #### [facility] [address] [place] [address] Dr. Jose David Shanks IG # 0.02 10e3/ul Normal 0.00-0.[address] [facility] Comment on above: Performed By: #### C BC #### [facility] [address] [place] [address] Dr. Jose David Shanks IG % 0.4 % Normal 0.0-0.[address] [facility] Comment on above: Performed By: #### C BC #### [facility] [address] [place] [address] Dr. Jose David Shanks LYMPH # 0.9 103/ul Critically low 1.2-3.8 [facility] Comment on above: Performed By: #### C BC #### [facility] [address] [place] [address] Dr. Jose David Shanks Lymphocytes/100 WBC (Bld) 19.3 % Critically low 20.5-60.[address] [facility] Comment on above: Performed By: #### C BC #### [facility] [address] [place] [address] Dr. Jose David Shanks MANUAL DIFF REQ NO Normal [facility] Comment on above: Performed By: #### C BC #### [facility] [address] [place] [address] Dr. Jose David Shanks MCH (RBC) [Entitic mass] 29.3 pg Normal 26.7-34.[address] [facility] Comment on above: Performed By: #### C BC #### [facility] [address] [place] [address] Dr. Jose David Shanks MCHC (RBC) [Mass/Vol] 33.3 g/dL Normal 29.9-35.[address] [facility] Comment on above: Performed By: #### C BC #### [facility] [address] [place] [address] Dr. Jose David Shanks MCV (RBC) [Entitic vol] 88.0 fL Normal 81.0-99.[address] [facility] Comment on above: Performed By: #### C BC #### [facility] [address] [place] [address] Dr. Jose David Shanks MONO # 0.4 103/ul Normal 0.3-0.[address] [facility] Comment on above: Performed By: #### C BC #### [facility] [address] [place] [address] Dr. Jose David Shanks Monocytes/100 WBC (Bld) 8.3 % Normal 1.7-12.[address] [facility] Comment on above: Performed By: #### C BC #### [facility] [address] [place] [address] Dr. Jose David Shanks NEUT # 3.3 103/ul Normal 1.4-6.5 [facility] Comment on above: Performed By: #### C BC #### [facility] [address] [place] [address] Dr. Jose David Shanks Neutrophils/100 WBC (Bld) 68.7 % Normal 43.0-75.[address] [facility] Comment on above: Performed By: #### C BC #### [facility] [address] [place] [address] Dr. Jose David Shanks Platelet mean volume (Bld) [Entitic vol] 9.9 fL Normal 9.5-13.[address] [facility] Comment on above: Performed By: #### C BC #### [facility] [address] [place] [address] Dr. Jose David Shanks PLT 259 103/ul Normal 150-[address] [facility] Comment on above: Performed By: #### C BC #### [facility] [address] [address] [address] Jose David Shanks RBC 3.41 106/ul Critically low 4.20-5.40 [facility] Comment on above: Performed By: #### C BC #### [facility] [address] [address] [address] Jose David Shanks WBC 4.8 103/ul Normal 4.0-11.[address] [facility] Comment on above: Performed By: #### C BC #### [facility] [address] [place] [address] Dr. Jose David Shanks PROF CHEM 8 (BAS METB)on Anion gap [Moles/Vol] 11.7 mmol/L Normal [facility] Comment on above: Performed By: #### L ACT #### [facility] [address] [place] [address] Dr. Jose David Shanks Calcium [Mass/Vol] 8.6 mg/dL Normal 8.5-10.1 [facility] Comment on above: Performed By: #### L ACT #### [facility] [address] [place] [address] Dr. Jose David Shanks Chloride [Moles/Vol] 107 mmol/L Normal 98-[address] [facility] Comment on above: Performed By: #### L ACT #### [facility] [address] [address] [address] Jose David Shanks CO2 [Moles/Vol] 30.9 mmol/L Normal 21.0-32.0 [facility] Comment on above: Performed By: #### L ACT #### [facility] [address] [place] [address] Dr. Jose David Shanks Creatinine [Mass/Vol] 1.04 mg/dL Critically high 0.55-1.[address] [facility] Comment on above: Performed By: #### L ACT #### [facility] [address] [address] [address] Jose David Shanks EGFR-AF LIBYAN >60 Normal >=60 [facility] Comment on above: Performed By: #### L ACT #### [facility] [address] [address] [address] Jose David Shanks EGFR-NON AF LIBYAN 51 mL/min/1.73m2 Critically low >=[address] [facility] Comment on above: Performed By: #### L ACT #### [facility] [address] [address] [address] Jose David Shanks Glucose [Mass/Vol] 97 mg/dL Normal 74-106 [facility] Comment on above: Performed By: #### L ACT #### [facility] [address] [address] [address] Jose David Shanks Potassium [Moles/Vol] 3.6 mmol/L Normal 3.5-5.[address] [facility] Comment on above: Performed By: #### L ACT #### [facility] [address] [address] [address] Jose David Shanks Sodium [Moles/Vol] 146 mmol/L Critically high 136-145 [facility] Comment on above: Performed By: #### L ACT #### [facility] [address] [address] [address] Jose David Shanks Urea nitrogen [Mass/Vol] 17.0 mg/dL Normal 7.0-18.[address] [facility] Comment on above: Performed By: #### L ACT #### [facility] [address] [address] [address] Jose David Shanks Urea nitrogen/Creatinine [Mass ratio] 16.3 mg/mg Normal [facility] Comment on above: Performed By: #### L ACT #### [facility] [address] [address] [address] Jose David Shanks XR CHEST 2 [...] EDWARD MENA Date: 2023-02-09 15:56 Normal [facility] BNPon 02-08-2023 Natriuretic peptide B (Bld) [Mass/Vol] 1007.0 pg/mL Normal <=1,800.[address] [facility] Comment on above: Performed By: #### B SUPERVISING FILM OR VIDEOTAPE EDITOR #### [facility] [address] [place] [address] Dr. Jose David Shanks CARDIAC TALI 3-6on 3 CK [Catalytic activity/Vol] 29 U/L Normal 26-[address] [facility] Comment on above: Performed By: #### C MREP #### [facility] [address] [place] [address] Dr. Jose David Shanks CK.MB [Mass/Vol] 0.90 ng/mL Normal <=3.60 [facility] Comment on above: Performed By: #### C MREP #### [facility] [address] [place] [address] Dr. Jose David Shanks HSTROP 69.4 pg/mL Critically high 4.0-51.3 [facility] Comment on above: Result Comment: CUT- OFF POINTS HAVE BEEN ESTABLISHED BASED ON THE FOURTH UNIVERSAL DEFINITIONS OF MYOCARDIAL INFARCTION. THE UPPER REFERENCE LIMIT (URL) OF TROPONIN, DEFINED THE 99TH PERCENTILE OF cTnI DISTRIBUTION IN A REFERENCE POPULATION, HAS BEEN CONFIRMED THE DECISION THRESHOLD FOR IN DIAGNOSIS. Performed By: #### C MREP #### [facility] [address] [place] [address] Dr. Jose David Shanks CK [Catalytic activity/Vol] 23 U/L Critically low 26-[address] [facility] Comment on above: Performed By: #### C MREP #### [facility] [address] [place] [address] Dr. Jose David Shanks CK.MB [Mass/Vol] ng/mL Normal <=3.60 [facility] Comment on above: Performed By: #### C MREP #### [facility] [address] [address] [address] Jose David Shanks HSTROP 72.0 pg/mL Critically high 4.0-51.3 [facility] Comment on above: Result Comment: CUT- OFF POINTS HAVE BEEN ESTABLISHED BASED ON THE FOURTH UNIVERSAL DEFINITIONS OF MYOCARDIAL INFARCTION. THE UPPER REFERENCE LIMIT (URL) OF TROPONIN, DEFINED THE 99TH PERCENTILE OF cTnI DISTRIBUTION IN A REFERENCE POPULATION, HAS BEEN CONFIRMED THE DECISION THRESHOLD FOR IN DIAGNOSIS. Performed By: #### C MREP #### [facility] [address] [place] [address] Dr. Jose David Shanks CARDIAC TALI ADMITon 023 CK [Catalytic activity/Vol] 31 U/L Normal 26-[address] [facility] Comment on above: Performed By: #### C MADM, BMP #### [facility] [address] [place] [address] Dr. Jose David Shanks CK.MB [Mass/Vol] ng/mL Normal <=3.60 [facility] Comment on above: Performed By: #### C MADM, BMP #### [facility] [address] [place] [address] Dr. Jose David Shanks HSTROP 26.3 pg/mL Normal 4.0-51.3 [facility] Comment on above: Result Comment: CUT- OFF POINTS HAVE BEEN ESTABLISHED BASED ON THE FOURTH UNIVERSAL DEFINITIONS OF MYOCARDIAL INFARCTION. THE UPPER REFERENCE LIMIT (URL) OF TROPONIN, DEFINED THE 99TH PERCENTILE OF cTnI DISTRIBUTION IN A REFERENCE POPULATION, HAS BEEN CONFIRMED THE DECISION THRESHOLD FOR IN DIAGNOSIS. Performed By: #### C MADM, BMP #### [facility] [address] [place] [address] Dr. Jose David Shanks MAMI 52 ng/mL Normal 9-82 [facility] Comment on above: Performed By: #### C MADM, BMP #### [facility] [address] [place] [address] Dr. Jose David Shanks CBC AUTO DIFFon 02-08-2023 BASO # 0.0 103/ul Normal 0.0-0.[address] [facility] Comment on above: Performed By: #### L ACT #### [facility] [address] [place] [address] Dr. Jose David Shanks Basophils/100 WBC (Bld) 0.3 % Normal 0.2-2.[address] [facility] Comment on above: Performed By: #### L ACT #### [facility] [address] [place] [address] Dr. Jose David Shanks EO # 0.1 103/ul Normal 0.0-0.[address] [facility] Comment on above: Performed By: #### L ACT #### [facility] [address] [place] [address] Dr. Jose David Shanks Eosinophils/100 WBC (Bld) 0.5 % Critically low 0.9-7.[address] [facility] Comment on above: Performed By: #### L ACT #### [facility] [address] [place] [address] Dr. Jose David Shanks Erythrocyte distribution width (RBC) [Ratio] 13.4 % Normal 11.0-15.[address] [facility] Comment on above: Performed By: #### L ACT #### [facility] [address] [place] [address] Dr. Jose David Shanks Hematocrit (Bld) [Volume fraction] 33.0 % Critically low 36.0-48.[address] [facility] Comment on above: Performed By: #### L ACT #### [facility] [address] [place] [address] Dr. Jose David Shanks Hemoglobin (Bld) [Mass/Vol] 11.1 g/dL Critically low 12.0-16.[address] [facility] Comment on above: Performed By: #### L ACT #### [facility] [address] [place] [address] Dr. Jose David Shanks IG # 0.06 10e3/ul Critically high 0.00-0.03 [facility] Comment on above: Performed By: #### L ACT #### [facility] [address] [place] [address] Dr. Jose David Shanks IG % 0.5 % Normal 0.0-0.[address] [facility] Comment on above: Performed By: #### L ACT #### [facility] [address] [address] [address] Jose David Shanks LYMPH # 0.8 103/ul Critically low 1.2-3.8 [facility] Comment on above: Performed By: #### L ACT #### [facility] [address] [place] [address] Dr. Jose David Shanks Lymphocytes/100 WBC (Bld) 7.0 % Critically low 20.5-60.[address] [facility] Comment on above: Performed By: #### L ACT #### [facility] [address] [place] [address] Dr. Jose David Shanks MANUAL DIFF REQ NO Normal [facility] Comment on above: Performed By: #### L ACT #### [facility] [address] [place] [address] Dr. Jose David Shanks MCH (RBC) [Entitic mass] 29.6 pg Normal 26.7-34.[address] [facility] Comment on above: Performed By: #### L ACT #### [facility] [address] [place] [address] Dr. Jose David Shanks MCHC (RBC) [Mass/Vol] 33.6 g/dL Normal 29.9-35.[address] [facility] Comment on above: Performed By: #### L ACT #### [facility] [address] [place] [address] Dr. Jose David Shanks MCV (RBC) [Entitic vol] 88.0 fL Normal 81.0-99.[address] [facility] Comment on above: Performed By: #### L ACT #### [facility] [address] [place] [address] Dr. Jose David Shanks MONO # 0.6 103/ul Normal 0.3-0.[address] [facility] Comment on above: Performed By: #### L ACT #### [facility] [address] [address] [address] Jose David Shanks Monocytes/100 WBC (Bld) 5.4 % Normal 1.7-12.[address] [facility] Comment on above: Performed By: #### L ACT #### [facility] [address] [address] [address] Jose David Shanks NEUT # 9.9 103/ul Critically high 1.4-6.5 [facility] Comment on above: Performed By: #### L ACT #### [facility] [address] [place] [address] Dr. Jose David Shanks Neutrophils/100 WBC (Bld) 86.3 % Critically high 43.0-75.[address] [facility] Comment on above: Performed By: #### L ACT #### [facility] [address] [place] [address] Dr. Jose David Shanks Platelet mean volume (Bld) [Entitic vol] 10.1 fL Normal 9.5-13.[address] [facility] Comment on above: Performed By: #### L ACT #### [facility] [address] [place] [address] Dr. Jose David Shanks PLT 333 103/ul Normal 150-450 [facility] Comment on above: Performed By: #### L ACT #### [facility] [address] [place] [address] Dr. Jose David Shanks RBC 3.75 106/ul Critically low 4.20-5.40 [facility] Comment on above: Performed By: #### L ACT #### [facility] [address] [place] [address] Dr. Jose David Shanks WBC 11.5 103/ul Critically high 4.0-11.0 [facility] Comment on above: Performed By: #### L ACT #### [facility] [address] [place] [address] Dr. Jose David Shanks CULTURE BLOODon 02-08-2023 Microscopic examination of blood, culture Culture Observations: NO GROWTH AT 5 DAYS. Normal [facility] Comment on above: Performed By: #### L ACT #### [facility] [address] [place], [place] [address] Dr. Jose David Shanks Microscopic examination of blood, culture Culture Observations: NO GROWTH AT 5 DAYS. Normal [facility] Comment on above: Performed By: #### L ACT #### [facility] [address] [place], [place] [address] Dr. Jose David Shanks ECHOCARDIO M/2D COMPLETEon 0 02-08-2023 ECHOCARDIO M/2D COMPLETE Patient: LASHAUN JOAQUIN Exam Date: 02/08/2023 : 1940 Gender:F Ordering : DR KOFI SCOTT . Admission #: [id number] Family : DR NATHAN HATHAWAY D.O. Order #: [id number] CLICK HERE TO VIEW EXAM ECHOCARDIOGRAM REPORT [...] 02/09/2023 at 19:[address] [facility] LACTATE/LACTIC ACIDon 2022 Lactate [Moles/Vol] 1.4 mmol/L Normal 0.4-2.0 [facility] Comment on above: Performed By: #### L ACT #### [facility] [address] [address] [address] Jose David Shanks Lactate [Moles/Vol] 1.4 mmol/L Normal 0.4-2.0 [facility] Comment on above: Performed By: #### L ACT #### [facility] [address] [place] [address] Dr. Jose David Shanks PROF CHEM 8 (BAS METB)on Anion gap [Moles/Vol] 11.9 mmol/L Normal [facility] Comment on above: Performed By: #### C ELZA, BMP #### [facility] [address] [place] [address] Dr. Jose David Shanks Calcium [Mass/Vol] 9.0 mg/dL Normal 8.5-10.1 [facility] Comment on above: Performed By: #### C ELZA, BMP #### [facility] [address] [place] [address] Dr. Jose David Shanks Chloride [Moles/Vol] 105 mmol/L Normal 98-[address] [facility] Comment on above: Performed By: #### C ELZA, BMP #### [facility] [address] [place] [address] Dr. Jose David Shansk CO2 [Moles/Vol] 28.2 mmol/L Normal 21.0-32.0 [facility] Comment on above: Performed By: #### C ELZA, BMP #### [facility] [address] [place] [address] Dr. Jose David Shanks Creatinine [Mass/Vol] 0.99 mg/dL Normal 0.55-1.[address] [facility] Comment on above: Performed By: #### C MADM, BMP #### [facility] [address] [address] [address] Jose David Shanks EGFR-AF LIBYAN >60 Normal >=60 [facility] Comment on above: Performed By: #### C MADM, BMP #### [facility] [address] [address] [address] Jose David Shanks EGFR-NON AF LIBYAN 54 mL/min/1.73m2 Critically low >=[address] [facility] Comment on above: Performed By: #### C MADM, BMP #### [facility] [address] [address] [address] Jose David Shanks Glucose [Mass/Vol] 123 mg/dL Critically high 74-106 [facility] Comment on above: Performed By: #### C MADM, BMP #### [facility] [address] [address] [address] Jose David Shanks Potassium [Moles/Vol] 4.1 mmol/L Normal 3.5-5.[address] [facility] Comment on above: Performed By: #### C MADM, BMP #### [facility] [address] [address] [address] Jose David Shanks Sodium [Moles/Vol] 141 mmol/L Normal 136-145 [facility] Comment on above: Performed By: #### C MADM, BMP #### [facility] [address] [address] [address] Jose David Shanks Urea nitrogen [Mass/Vol] 14.0 mg/dL Normal 7.0-18.[address] [facility] Comment on above: Performed By: #### C MADM, BMP #### [facility] [address] [address] [address] Jose David Shanks Urea nitrogen/Creatinine [Mass ratio] 14.1 mg/mg Normal [facility] Comment on above: Performed By: #### C MADM, BMP #### [facility] [address] [address] [address] Jose David Shanks RESPIRATORY PANEL PLUSon Adenovirus Not detected Normal NOT DETECTED [facility] Comment on above: Performed By: #### R SPLUS #### [facility] [address] [place] [address] Dr. Jose David Mccormack Parapertusis Not detected Normal NOT DETECTED [facility] Comment on above: Performed By: #### R SPLUS #### [facility] [address] [place] [address] Dr. Jose David Mccormack Pertussis Not detected Normal NOT DETECTED [facility] Comment on above: Performed By: #### R SPLUS #### [facility] [address] [place] [address] Dr. Jose David Shanks Chlamydia Pneumoniae Not detected Normal NOT DETECTED [facility] Comment on above: Performed By: #### R SPLUS #### [facility] [address] [place] [address] Dr. Jose David Shanks Coronavirus 229E Not detected Normal NOT DETECTED [facility] Comment on above: Performed By: #### R SPLUS #### [facility] [address] [place] [address] Dr. Jose David Shanks Coronavirus HKU1 Not detected Normal NOT DETECTED [facility] Comment on above: Performed By: #### R SPLUS #### [facility] [address] [place] [address] Dr. Jose David Shanks Coronavirus NL63 Not detected Normal NOT DETECTED [facility] [facility] Comment on above: Performed By: #### R SPLUS #### [facility] [address] [place] [address] Dr. Jose David Shanks Coronavirus OC43 Not detected Normal NOT DETECTED [facility] Comment on above: Performed By: #### R SPLUS #### [facility] [address] [place] [address] Dr. Jose David Shanks Influenza A H1 Not detected Normal NOT DETECTED [facility] Comment on above: Performed By: #### R SPLUS #### [facility] [address] [place] [address] Dr. Jose David Shanks Influenza A H1 2009 Not detected Normal NOT DETECTED [facility] Comment on above: Performed By: #### R SPLUS #### [facility] [address] [place] [address] Dr. Jose David Shanks Influenza A H3 Not detected Normal NOT DETECTED [facility] Comment on above: Performed By: #### R SPLUS #### [facility] [address] [place] [address] Dr. Jose David Shanks Influenza B Not detected Normal NOT DETECTED [facility] Comment on above: Performed By: #### R SPLUS #### [facility] [address] [place] [address] Dr. Jose David Shanks Metapneumovirus Not detected Normal NOT DETECTED [facility] Comment on above: Performed By: #### R SPLUS #### [facility] [address] [place] [address] Dr. Jose David Shanks Mycoplas. Pneumoniae Not detected Normal NOT DETECTED [facility] Comment on above: Performed By: #### R SPLUS #### [facility] [address] [place] [address] Dr. Jose David Shanks Parainfluenza 1 Not detected Normal NOT DETECTED [facility] Comment on above: Performed By: #### R SPLUS #### [facility] [address] [place] [address] Dr. Jose David Shanks Parainfluenza 2 Not detected Normal NOT DETECTED [facility] Comment on above: Performed By: #### R SPLUS #### [facility] [address] [place] [address] Dr. Jose David Shanks Parainfluenza 3 Not detected Normal NOT DETECTED [facility] Comment on above: Performed By: #### R SPLUS #### [facility] [address] [place] [address] Dr. Jose David Shanks Parainfluenza 4 Not detected Normal NOT DETECTED [facility] Comment on above: Performed By: #### R SPLUS #### [facility] [address] [place] [address] Dr. Jose David Shanks Rhino/Enterovirus Not detected Normal NOT DETECTED [facility] Comment on above: Performed By: #### R SPLUS #### [facility] [address] [place] [address] Dr. Jose David Shanks RP2 Header 1 RESPIRATORY PANEL: VIRUSES Normal [facility] Comment on above: Performed By: #### R SPLUS #### [facility] [address] [address] [address] Jose David Shanks RP2 Header 2 RESPIRATORY PANEL: BACTERIA Normal [facility] Comment on above: Performed By: #### R SPLUS #### [facility] [address] [address] [address] Jose David Shanks RSV Not detected Normal NOT DETECTED [facility] Comment on above: Performed By: #### R SPLUS #### [facility] [address] [address] [address] Jose David Shanks SARS-CoV-2 (COVID-19) RNA ZABRINA+probe Ql (Unsp spec) Not detected Normal NOT DETECTED [facility] Comment on above: Performed By: #### R SPLUS #### [facility] [address] [place] [address] Dr. Jose David Shanks XR CHEST 1 [...] Petra SAHU Date: 2023-02-08 05:21 Normal [facility] MAMM SCREEN 3D SCARLETT CADon 01-08-2023 MG MAMM SCREEN 3D SCARLETT CAD Patient: LASHAUN JOAQUIN Exam Date: 01/08/2023 : 1940 Gender:F Ordering : DR NATHAN HATHAWAY D.O. Admission #: [id number] Family : Order #: [id number] CLICK HERE TO VIEW EXAM RADIOLOGY REPORT [...] lung cancer at age 62. LOCATION: [facility] BREAST COMPOSITION: Extremely dense, which lowers [...] MD on 01/08/2023 at 11:24 Normal [facility] US ST HEAD_NECKon 09-11-[address] HEAD_NECK [...] WILLIAM DOMINGUEZ Date: 2022-09-11 17:07 Normal [facility] CT Abdomen and Pelvis W cont [...] any questions regarding this interpretation, please call [phone]. If you are unable to reach us at the number above, please feel free to contact [facility] at [phone]. DIVISION OF RADIOLOGY * * *Final Report* * * DATE OF EXAM: Aug 28 2022 1:36PM [facility] 0530 - CT ABD/PEL W [...] chest CT performed will be reported separately. Bioprocess Development Engineer (topogram) images: No additional findings. DIVISION OF RADIOLOGY Provider, [facility] - 08/28/2022 * * *Final Report* * * DATE OF EXAM: Aug 28 2022 1:36PM [facility] 0530 - CT ABD/PEL W [...] chest CT performed will be reported separately. Bioprocess Development Engineer (topogram) images: No additional findings. IMPRESSION IMPRESSION: [...] report reviewed and electronically signed by: KIESHA REYNOOS MD on Aug 28 2022 5:25PM EST Thank you for allowing us to participate in the care of your patient. Should there be any questions regarding this interpretation, please call [phone]. If you are unable to reach us at the number above, please feel free to contact [facility] eRadiology at [phone]. [facility] CT Abdomen and Pelvis W cont rast IVOrdered By: [facility]cf Provider on 08-28-2022 [facility] CT Chest W contrast [place]ka IMPRESSION: [...] any questions regarding this interpretation, please call [phone]. If you are unable to reach us at the number above, please feel free to contact [facility] eRadiology at [phone]. DIVISION OF RADIOLOGY * * *Final Report* * * DATE OF EXAM: Aug 28 2022 1:36PM [facility] 0539 - CT CHEST W [...] was performed concurrently and is reported separately. Bioprocess Development Engineer (topogram) images: No additional findings. DIVISION OF RADIOLOGY Provider, Thee Stephens [facility] - 08/28/2022 * * *Final Report* * * DATE OF EXAM: Aug 28 2022 1:36PM [facility] 0539 - CT CHEST W [...] was performed concurrently and is reported separately. Bioprocess Development Engineer (topogram) images: No additional findings. IMPRESSION IMPRESSION: [...] any questions regarding this interpretation, please call [phone]. If you are unable to reach us at the number above, please feel free to contact [facility] eRadiology at [phone]. [facility] No Panel Informationon 08-28 Radiology Study observation (narrative) [facility] Covid-19 PCR (CVDTBH)on SARS-CoV-2 (COVID-19) RNA ZABRINA+probe Ql (Unsp spec) Detected Critically abnormal NOT DETECTED [facility] Comment on above: Result Comment: This test is not yet approved or cleared by the [place] FDA. When there are no FDA-approved or cleared tests available, and other criteria are met, FDA can make tests available under an emergency access mechanism called an Emergency Use Authorization (EUA). The EUA for this test is supported by the [employer] of Health and Human Service's (HHS's) declaration [...] longer be used). Performed By: #### C [facility] #### [facility] [address] [address] [address] Jose David Shanks Vital Signs Date Time Vital Sign Value Performing Clinician Facility 08-04-2025 10:44-0400 Body height 160.02 cm Nathan Hathaway DO Work Phone: [facility] 08-04-2025 10:44-0400 Body mass index (BMI) [Ratio] 34.5 kg/m2 Nathan Ball DO Work Phone: [facility] 08-04-2025 10:44-0400 Body temperature 97.6 [degF] Nathan Ball DO Work Phone: [facility] 08-04-2025 10:44-0400 Body weight 88.45 kg Nathan Ball DO Work Phone: [facility] 08-04-2025 10:44-0400 Diastolic blood pressure 50 mm[Hg] Nathan Ball DO Work Phone: [facility] 08-04-2025 10:44-0400 Heart rate 69 /min Nathan Ball DO Work Phone: [facility] 08-04-2025 10:44-0400 SaO2% (BldA) [Mass fraction] 96 % Nathan Ball DO Work Phone: [facility] 08-04-2025 10:44-0400 Systolic blood pressure 150 mm[Hg] Nathan Ball DO Work Phone: [facility] 07-21-2025 15:53-0400 Body height 166.37 cm Nathan Ball DO Work Phone: [facility] 07-21-2025 15:53-0400 Body mass index (BMI) [Ratio] 31.9 kg/m2 Nathan Ball DO Work Phone: [facility] 07-21-2025 15:53-0400 Body weight 88.45 kg Nathan Ball DO Work Phone: [facility] 07-21-2025 15:53-0400 Diastolic blood pressure 76 mm[Hg] Nathan Ball DO Work Phone: [facility] 07-21-2025 15:53-0400 Diastolic blood pressure 85 mm[Hg] Nathan Ball DO Work Phone: [facility] 07-21-2025 15:53-0400 Heart rate 76 /min Nathan Ball DO Work Phone: [facility] 07-21-2025 15:53-0400 Respiratory rate 12 /min Nathan Ball DO Work Phone: [facility] 07-21-2025 15:53-0400 Systolic blood pressure 172 mm[Hg] Nathan Ball DO Work Phone: [facility] 07-21-2025 15:53-0400 Systolic blood pressure 140 mm[Hg] Nathan Ball DO Work Phone: [facility] 07-08-2025 10:09-0400 Diastolic blood pressure 68 mm[Hg] Paolo Casillas APRN.INTERPRETIVE PROGRAM COORDINATOR Work Phone: [facility] Comment on above: recheck BP [facility] 07-08-2025 10:09-0400 Systolic blood pressure 178 mm[Hg] Paolo Casillas APRN.INTERPRETIVE PROGRAM COORDINATOR Work Phone: [facility] Comment on above: recheck BP [facility] 07-08-2025 10:01-0400 Body height 166.4 cm Paolo Casillas APRN.INTERPRETIVE PROGRAM COORDINATOR Work Phone: [facility] 07-08-2025 10:01-0400 Body mass index (BMI) [Ratio] 33.15 kg/m2 Paolo Casillas APRN.INTERPRETIVE PROGRAM COORDINATOR Work Phone: [facility] 07-08-2025 10:01-0400 Body temperature 96.8 [degF] Paolo Casillas APRN.INTERPRETIVE PROGRAM COORDINATOR Work Phone: [facility] 07-08-2025 10:01-0400 Body weight 91.8 kg Paolo Casillas APRN.INTERPRETIVE PROGRAM COORDINATOR Work Phone: [facility] 07-08-2025 10:01-0400 Heart rate 66 /min Paolo Casillas APRN.INTERPRETIVE PROGRAM COORDINATOR Work Phone: [facility] 07-08-2025 10:01-0400 Respiratory rate 18 /min Paolo Casillas APRN.INTERPRETIVE PROGRAM COORDINATOR Work Phone: [facility] 07-08-2025 10:01-0400 SaO2% (BldA) [Mass fraction] 95 % Paolo Casillas APRN.INTERPRETIVE PROGRAM COORDINATOR Work Phone: [facility] 06-19-2025 09:31-0400 Body height 166.37 cm Nathan Ball DO Work Phone: [facility] 06-19-2025 09:31-0400 Body mass index (BMI) [Ratio] 32.4 kg/m2 Nathan Ball DO Work Phone: [facility] 06-19-2025 09:31-0400 Body weight 89.81 kg Nathan Ball DO Work Phone: [facility] 06-19-2025 09:31-0400 Diastolic blood pressure 70 mm[Hg] Nathan Ball DO Work Phone: [facility] 06-19-2025 09:31-0400 Heart rate 62 /min Nathan Ball DO Work Phone: [facility] 06-19-2025 09:31-0400 Respiratory rate 14 /min Nathan Ball DO Work Phone: [facility] 06-19-2025 09:31-0400 SaO2% (BldA) [Mass fraction] 96 % Nathan Ball DO Work Phone: [facility] 06-19-2025 09:31-0400 Systolic blood pressure 146 mm[Hg] Nathan Ball DO Work Phone: [facility] 05-19-2025 15:33-0400 Body height 166.37 cm Nathan Ball DO Work Phone: [facility] 05-19-2025 15:33-0400 Body mass index (BMI) [Ratio] 31.8 kg/m2 Nathan Ball DO Work Phone: [facility] 05-19-2025 15:33-0400 Body weight 88.13 kg Nathan Ball DO Work Phone: [facility] 05-19-2025 15:33-0400 Diastolic blood pressure 74 mm[Hg] Nathan Ball DO Work Phone: [facility] 05-19-2025 15:33-0400 Heart rate 67 /min Nathan Ball DO Work Phone: [facility] 05-19-2025 15:33-0400 Respiratory rate 14 /min Nathan Ball DO Work Phone: [facility] 05-19-2025 15:33-0400 SaO2% (BldA) [Mass fraction] 96 % Nathan Ball DO Work Phone: [facility] 05-19-2025 15:33-0400 Systolic blood pressure 148 mm[Hg] Nathan Ball DO Work Phone: [facility] 03-19-2025 11:22-0400 Body height 166.37 cm Nathan Ball DO Work Phone: [facility] 03-19-2025 11:22-0400 Body mass index (BMI) [Ratio] 31.6 kg/m2 Nathan Ball DO Work Phone: [facility] 03-19-2025 11:22-0400 Body weight 87.54 kg Nathan Ball DO Work Phone: [facility] 03-19-2025 11:22-0400 Diastolic blood pressure 89 mm[Hg] Nathan Ball DO Work Phone: [facility] 03-19-2025 11:22-0400 Heart rate 66 /min Nathan Ball DO Work Phone: [facility] 03-19-2025 11:22-0400 Respiratory rate 12 /min Nathan Ball DO Work Phone: [facility] 03-19-2025 11:22-0400 SaO2% (BldA) [Mass fraction] 97 % Nathan Ball DO Work Phone: [facility] 03-19-2025 11:22-0400 Systolic blood pressure 139 mm[Hg] Nathan Ball DO Work Phone: [facility] 03-17-2025 10:42-0400 Body height 165.[address] 03-17-2025 10:42-0400 Body mass index (BMI) [Ratio] 33.28 kg/m2 [address] 03-17-2025 10:42-0400 Body weight 90.[address] 03-17-2025 10:42-0400 Diastolic blood pressure 60 mm[Hg] [address] 03-17-2025 10:42-0400 Systolic blood pressure 120 mm[Hg] [address] 03-13-2025 13:25-0400 Body height 166.37 cm Nathan Ball DO Work Phone: [facility] 03-13-2025 13:25-0400 Body mass index (BMI) [Ratio] 33 kg/m2 Nathan Ball DO Work Phone: [facility] 03-13-2025 13:25-0400 Body weight 91.28 kg Nathan Ball DO Work Phone: [facility] 03-13-2025 13:25-0400 Diastolic blood pressure 68 mm[Hg] Nathan Ball DO Work Phone: [facility] 03-13-2025 13:25-0400 Heart rate 90 /min Nathan Ball DO Work Phone: [facility] 03-13-2025 13:25-0400 Respiratory rate 12 /min Nathan Ball DO Work Phone: [facility] 03-13-2025 13:25-0400 Systolic blood pressure 148 mm[Hg] Nathan Ball DO Work Phone: [facility] 02-25-2025 08:46-0400 Body height 165.1 cm Reyna Esparza MD Work Phone: [facility] 02-25-2025 08:46-0400 Body mass index (BMI) [Ratio] 32.45 kg/m2 Reyna Esparza MD Work Phone: [facility] 02-25-2025 08:46-0400 Body weight 88.45 kg Reyna Esparza MD Work Phone: [facility] 02-25-2025 08:46-0400 Diastolic blood pressure 59 mm[Hg] Reyna Esparza MD Work Phone: [facility] 02-25-2025 08:46-0400 Heart rate 72 /min Reyna Esparza MD Work Phone: [facility] 02-25-2025 08:46-0400 Systolic blood pressure 118 mm[Hg] Reyna Esparza MD Work Phone: [facility] 02-12-2025 10:20-0400 Diastolic blood pressure 70 mm[Hg] Nathan Ball DO Work Phone: [facility] 02-12-2025 10:20-0400 Heart rate 56 /min Nathan Ball DO Work Phone: [facility] 02-12-2025 10:20-0400 Respiratory rate 18 /min Nathan Ball DO Work Phone: [facility] 02-12-2025 10:20-0400 SaO2% (BldA) [Mass fraction] 97 % Nathan Ball DO Work Phone: [facility] 02-12-2025 10:20-0400 Systolic blood pressure 190 mm[Hg] Nathan Ball DO Work Phone: [facility] 02-12-2025 06:29-0400 Body height 165.1 cm Nathan Ball DO Work Phone: [facility] 02-12-2025 06:29-0400 Body temperature 98.3 [degF] Nathan Ball DO Work Phone: [facility] 02-12-2025 06:29-0400 Body weight 90.9 kg Nathan Ball DO Work Phone: [facility] 01-22-2025 10:20-0400 Body height 166.37 cm Nathan Ball DO Work Phone: [facility] 01-22-2025 10:20-0400 Body mass index (BMI) [Ratio] 31.9 kg/m2 Nathan Ball DO Work Phone: [facility] 01-22-2025 10:20-0400 Body weight 88.45 kg Nathan Ball DO Work Phone: [facility] 01-22-2025 10:20-0400 Diastolic blood pressure 64 mm[Hg] Nathan Ball DO Work Phone: [facility] 01-22-2025 10:20-0400 Heart rate 65 /min Nathan Ball DO Work Phone: [facility] 01-22-2025 10:20-0400 Respiratory rate 12 /min Nathan Ball DO Work Phone: [facility] 01-22-2025 10:20-0400 Systolic blood pressure 215 mm[Hg] Nathan Ball DO Work Phone: [facility] 01-12-2025 11:10-0400 Body height 165.1 cm Holden Rosado INTERNET SALESPERSON-INTERPRETIVE PROGRAM COORDINATOR Work Phone: [facility] 01-12-2025 11:10-0400 Body mass index (BMI) [Ratio] 33.28 kg/m2 Holden Rosado INTERNET SALESPERSON-INTERPRETIVE PROGRAM COORDINATOR Work Phone: [facility] 01-12-2025 11:10-0400 Body weight 90.72 kg Holden Rosado INTERNET SALESPERSON-INTERPRETIVE PROGRAM COORDINATOR Work Phone: [facility] 01-12-2025 11:10-0400 Diastolic blood pressure 60 mm[Hg] Holden Rosado INTERNET SALESPERSON-INTERPRETIVE PROGRAM COORDINATOR Work Phone: [facility] 01-12-2025 11:10-0400 Heart rate 60 /min Holden Rosado INTERNET SALESPERSON-INTERPRETIVE PROGRAM COORDINATOR Work Phone: [facility] 01-12-2025 11:10-0400 Systolic blood pressure 124 mm[Hg] Holden Rosado INTERNET SALESPERSON-INTERPRETIVE PROGRAM COORDINATOR Work Phone: [facility] 12-16-2024 10:50-0500 Body height 166.37 cm Nathan Ball DO Work Phone: [facility] 12-16-2024 10:50-0500 Body mass index (BMI) [Ratio] 32 kg/m2 Nathan Ball DO Work Phone: [facility] 12-16-2024 10:50-0500 Body weight 88.59 kg Nathan Ball DO Work Phone: [facility] 12-16-2024 10:50-0500 Diastolic blood pressure 67 mm[Hg] Nathan Ball DO Work Phone: [facility] 12-16-2024 10:50-0500 Heart rate 56 /min Nathan Ball DO Work Phone: [facility] 12-16-2024 10:50-0500 SaO2% (BldA) [Mass fraction] 97 % Nathan Ball DO Work Phone: [facility] 12-16-2024 10:50-0500 Systolic blood pressure 136 mm[Hg] Nathan Ball DO Work Phone: [facility] 11-25-2024 13:55-0500 Body height 165.1 cm Reyna Esparza MD Work Phone: [facility] 11-25-2024 13:55-0500 Body mass index (BMI) [Ratio] 32.28 kg/m2 Reyna Esparza MD Work Phone: [facility] 11-25-2024 13:55-0500 Body weight 88 kg Reyna Esparza MD Work Phone: [facility] 11-25-2024 13:55-0500 Diastolic blood pressure 64 mm[Hg] Reyna Esparza MD Work Phone: [facility] 11-25-2024 13:55-0500 Heart rate 60 /min Reyna Esparza MD Work Phone: [facility] 11-25-2024 13:55-0500 Systolic blood pressure 141 mm[Hg] Reyna Esparza MD Work Phone: [facility] 11-17-2024 13:05-0500 Diastolic blood pressure 59 mm[Hg] Nathan Ball DO Work Phone: [facility] 11-17-2024 13:05-0500 Heart rate 68 /min Nathan Ball DO Work Phone: [facility] 11-17-2024 13:05-0500 Respiratory rate 16 /min Nathan Ball DO Work Phone: [facility] 11-17-2024 13:05-0500 SaO2% (BldA) [Mass fraction] 94 % Nathan Ball DO Work Phone: [facility] 11-17-2024 13:05-0500 Systolic blood pressure 163 mm[Hg] Nathan Ball DO Work Phone: [facility] 11-17-2024 10:05-0500 Body height 166.37 cm Nathan Ball DO Work Phone: [facility] 11-17-2024 10:05-0500 Body weight 89.35 kg Nathan Ball DO Work Phone: [facility] 10-08-2024 10:40-0500 Body height 165.1 cm Edinson Perry DO Work Phone: [facility] 10-08-2024 10:40-0500 Body mass index (BMI) [Ratio] 33.12 kg/m2 Edinson Perry DO Work Phone: [facility] 10-08-2024 10:40-0500 Body weight 90.27 kg Edinson Perry DO Work Phone: [facility] 10-08-2024 10:40-0500 Diastolic blood pressure 60 mm[Hg] Edinson Peryr DO Work Phone: [facility] 10-08-2024 10:40-0500 Heart rate 78 /min Edinson Perry DO Work Phone: [facility] 10-08-2024 10:40-0500 Systolic blood pressure 124 mm[Hg] Edinson Perry DO Work Phone: [facility] 09-11-2024 10:19-0500 Body height 165.1 cm [facility] 09-11-2024 10:190500 Body mass index (BMI) [Ratio] 32.3 kg/m2 [facility] 09-11-2024 10:190500 Body weight 88.13 kg [facility] 09-11-2024 10:190500 Diastolic blood pressure 54 mm[Hg] [facility] 09-11-2024 10:19-0500 Heart rate 63 /min [facility] 09-11-2024 10:190500 SaO2% (BldA) [Mass fraction] 97 % [facility] 09-11-2024 10:190500 Systolic blood pressure 118 mm[Hg] [facility] 06-03-2024 10:54-0400 Body height 165.1 cm DO Nathan Ball Work Phone: [facility] 06-03-2024 10:54-0400 Body mass index (BMI) [Ratio] 26.8 kg/m2 DO Nathan Ball Work Phone: [facility] 06-03-2024 10:54-0400 Body weight 73.02 kg DO Nathan Ball Work Phone: [facility] 06-03-2024 10:54-0400 Diastolic blood pressure 89 mm[Hg] DO Nathan Ball Work Phone: [facility] 06-03-2024 10:54-0400 Heart rate 56 /min DO Nathan Ball Work Phone: [facility] 06-03-2024 10:54-0400 Respiratory rate 12 /min DO Nathan Ball Work Phone: [facility] 06-03-2024 10:54-0400 Systolic blood pressure 139 mm[Hg] DO Nathan Ball Work Phone: [facility] 04-21-2024 10:21-0400 Body mass index (BMI) [Ratio] 32.98 kg/m2 Holden Rosado INTERNET SALESPERSON-INTERPRETIVE PROGRAM COORDINATOR Work Phone: [facility] 04-21-2024 10:21-0400 Body weight 89.9 kg Holden Rosado INTERNET SALESPERSON-INTERPRETIVE PROGRAM COORDINATOR Work Phone: [facility] 04-21-2024 10:21-0400 Diastolic blood pressure 70 mm[Hg] Holden Rosado INTERNET SALESPERSON-INTERPRETIVE PROGRAM COORDINATOR Work Phone: [facility] 04-21-2024 10:21-0400 Heart rate 60 /min Holden Rosado INTERNET SALESPERSON-INTERPRETIVE PROGRAM COORDINATOR Work Phone: [facility] 04-21-2024 10:21-0400 Systolic blood pressure 132 mm[Hg] Holden Rosado INTERNET SALESPERSON-INTERPRETIVE PROGRAM COORDINATOR Work Phone: [facility] 03-12-2024 09:27-0400 Diastolic blood pressure 66 mm[Hg] [address] 03-12-2024 09:27-0400 Heart rate 62 /min [address] 03-12-2024 09:27-0400 Systolic blood pressure 114 mm[Hg] [address] 03-05-2024 11:46-0400 Body height 165.1 cm Holden Rosado INTERNET SALESPERSON-INTERPRETIVE PROGRAM COORDINATOR Work Phone: [facility] 03-05-2024 11:46-0400 Body mass index (BMI) [Ratio] 32.62 kg/m2 Holden Rosado INTERNET SALESPERSON-INTERPRETIVE PROGRAM COORDINATOR Work Phone: [facility] 03-05-2024 11:46-0400 Body weight 88.91 kg Holden Rosado INTERNET SALESPERSON-INTERPRETIVE PROGRAM COORDINATOR Work Phone: [facility] 03-05-2024 11:46-0400 Diastolic blood pressure 68 mm[Hg] Holden Rosado INTERNET SALESPERSON-INTERPRETIVE PROGRAM COORDINATOR Work Phone: [facility] 03-05-2024 11:46-0400 Heart rate 62 /min Holden Rosado INTERNET SALESPERSON-INTERPRETIVE PROGRAM COORDINATOR Work Phone: [facility] 03-05-2024 11:46-0400 Systolic blood pressure 120 mm[Hg] Holden Rosado INTERNET SALESPERSON-INTERPRETIVE PROGRAM COORDINATOR Work Phone: [facility] 02-27-2024 09:53-0400 Body height 165.1 cm DO Nathan Ball Work Phone: [facility] 02-27-2024 09:53-0400 Body mass index (BMI) [Ratio] 31.9 kg/m2 DO Nathan Ball Work Phone: [facility] 02-27-2024 09:53-0400 Body weight 87.08 kg DO Nathan Ball Work Phone: [facility] 02-27-2024 09:53-0400 Diastolic blood pressure 72 mm[Hg] DO Nathan Ball Work Phone: [facility] 02-27-2024 09:53-0400 Heart rate 62 /min DO Nathan Ball Work Phone: [facility] 02-27-2024 09:53-0400 SaO2% (BldA) [Mass fraction] 97 % DO Nathan Ball Work Phone: [facility] 02-27-2024 09:53-0400 Systolic blood pressure 132 mm[Hg] DO Nathan Ball Work Phone: [facility] 02-13-2024 10:30-0400 Body height 165.1 cm [facility] 02-13-2024 10:30-0400 Body mass index (BMI) [Ratio] 32.8 kg/m2 [facility] 02-13-2024 10:30-0400 Body weight 89.35 kg [facility] 02-13-2024 10:30-0400 Diastolic blood pressure 60 mm[Hg] [facility] 02-13-2024 10:30-0400 Heart rate 56 /min [facility] 02-13-2024 10:30-0400 SaO2% (BldA) [Mass fraction] 98 % [facility] 02-13-2024 10:30-0400 Systolic blood pressure 128 mm[Hg] [facility] 02-01-2024 11:01-0400 Body height 165.1 cm [facility] 02-01-2024 11:01-0400 Body mass index (BMI) [Ratio] 27.3 kg/m2 [facility] 02-01-2024 11:01-0400 Body weight 74.44 kg [facility] 02-01-2024 11:01-0400 Diastolic blood pressure 72 mm[Hg] [facility] 02-01-2024 11:01-0400 Heart rate 49 /min [facility] 02-01-2024 11:01-0400 Respiratory rate 12 /min [facility] 02-01-2024 11:01-0400 Systolic blood pressure 131 mm[Hg] [facility] 11-02-2023 11:00-0500 Body height 165.1 cm Nathan Ball Other [facility] Other 11-02-2023 11:00-0500 Body mass index (BMI) [Ratio] 31.78 kg/m2 Nathan Ball Other [facility] Other 11-02-2023 11:00-0500 Body weight 86.64 kg Nathan Ball Other [facility] Other 11-02-2023 11:00-0500 Diastolic blood pressure 80 mm[Hg] Nathan Ball Other [facility] Other 11-02-2023 11:00-0500 Respiratory rate 16 /min Nathan Ball Other [facility] Other 11-02-2023 11:00-0500 Systolic blood pressure 130 mm[Hg] Nathan Ball Other [facility] Other 10-02-2023 09:45-0500 Body height 165.1 cm Nathan Ball Other [facility] Other 10-02-2023 09:45-0500 Body mass index (BMI) [Ratio] 31.61 kg/m2 Nathan Ball Other [facility] Other 10-02-2023 09:45-0500 Body weight 86.18 kg Nathan Ball Other [employer] Other 10-02-2023 09:45-0500 Diastolic blood pressure 74 mm[Hg] Nathan Ball Other [employer] Other 10-02-2023 09:45-0500 Respiratory rate 12 /min Nathan Ball Other [employer] Other 10-02-2023 09:45-0500 Systolic blood pressure 144 mm[Hg] Nathan Ball Other [employer] Other 06-08-2023 11:15-0400 Body height 165.1 cm Nathan Ball Other [employer] Other 06-08-2023 11:15-0400 Body mass index (BMI) [Ratio] 32.95 kg/m2 Nathan Ball Other [employer] Other 06-08-2023 11:15-0400 Body weight 89.81 kg Nathan Ball Other [employer] Other 06-08-2023 11:15-0400 Diastolic blood pressure 62 mm[Hg] Nathan Ball Other [employer] Other 06-08-2023 11:15-0400 Respiratory rate 12 /min Nathan Ball Other [employer] Other 06-08-2023 11:15-0400 Systolic blood pressure 138 mm[Hg] Nathan Ball Other [employer] Other 06-04-2023 13:51-0400 Body temperature 97.7 [degF] Luis Mckenzie MD Work Phone: [facility] 06-04-2023 13:51-0400 Body weight 91.99 kg Luis Mckenzie MD Work Phone: [facility] 06-04-2023 13:51-0400 Diastolic blood pressure 58 mm[Hg] Luis Mckenzie MD Work Phone: [facility] 06-04-2023 13:51-0400 Heart rate 56 /min Luis Mckenzie MD Work Phone: [facility] 06-04-2023 13:51-0400 Respiratory rate 18 /min Luis Mckenzie MD Work Phone: [facility] 06-04-2023 13:51-0400 SaO2% (BldA) [Mass fraction] 98 % Luis Mckenzie MD Work Phone: [facility] 06-04-2023 13:51-0400 Systolic blood pressure 155 mm[Hg] Luis Mckenzie MD Work Phone: [facility] 05-25-2023 11:15-0400 Body height 165.1 cm Nathan Ball Other [employer] Other 05-25-2023 11:15-0400 Body mass index (BMI) [Ratio] 32.86 kg/m2 Nathan Ball Other [employer] Other 05-25-2023 11:15-0400 Body weight 89.59 kg Nathan Ball Other [employer] Other 05-25-2023 11:15-0400 Diastolic blood pressure 68 mm[Hg] Nathan Ball Other [employer] Other 05-25-2023 11:15-0400 Respiratory rate 16 /min Nathan Ball Other [employer] Other 05-25-2023 11:15-0400 Systolic blood pressure 142 mm[Hg] Nathan Ball Other [employer] Other 05-18-2023 15:30-0400 Body temperature 97.7 [degF] DO Nathan Ball Work Phone: [facility] 05-18-2023 15:30-0400 Diastolic blood pressure 71 mm[Hg] DO Nathan Ball Work Phone: [facility] 05-18-2023 15:30-0400 Heart rate 62 /min DO Nathan Ball Work Phone: [facility] 05-18-2023 15:30-0400 Respiratory rate 16 /min DO Nathan Ball Work Phone: [facility] 05-18-2023 15:30-0400 SaO2% (BldA) [Mass fraction] 95 % DO Nathan Ball Work Phone: [facility] 05-18-2023 15:30-0400 Systolic blood pressure 145 mm[Hg] DO Nathan Ball Work Phone: [facility] 05-18-2023 05:39-0400 Body weight 88.1 kg DO Nathan Ball Work Phone: [facility] 05-17-2023 20:00-0400 Inhaled oxygen flow rate 1.5 L/min DO Nathan Ball Work Phone: [facility] 05-17-2023 15:54-0400 Body height 172.72 cm DO Nathan Ball Work Phone: [facility] 05-16-2023 11:30-0400 Body height 165.1 cm Nathan Ball Other [employer] [facility] Other 05-16-2023 11:30-0400 Body mass index (BMI) [Ratio] 33.28 kg/m2 Nathan Ball Other [employer] Other 05-16-2023 11:30-0400 Body weight 90.72 kg Nathan Ball Other [employer] Other 05-16-2023 11:30-0400 Diastolic blood pressure 69 mm[Hg] Nathan Ball Other [employer] Other 05-16-2023 11:30-0400 Respiratory rate 16 /min Nathan Ball Other [employer] Other 05-16-2023 11:30-0400 Systolic blood pressure 192 mm[Hg] Nathan Ball Other [employer] Other 05-09-2023 11:15-0400 Body height 165.1 cm Nathan Ball Other [employer] Other 05-09-2023 11:15-0400 Body mass index (BMI) [Ratio] 32.75 kg/m2 Nathan Ball Other [employer] Other 05-09-2023 11:15-0400 Body weight 89.27 kg Nathan Ball Other [employer] Other 05-09-2023 11:15-0400 Diastolic blood pressure 62 mm[Hg] Nathan Ball Other [employer] Other 05-09-2023 11:15-0400 Respiratory rate 16 /min Nathan Ball Other [employer] Other 05-09-2023 11:15-0400 SaO2% (BldA) [Mass fraction] 98 % Nathan Ball Other [employer] Other 05-09-2023 11:15-0400 Systolic blood pressure 189 mm[Hg] Nathan Ball Other [employer] Other 04-26-2023 11:30-0400 Body height 165.1 cm Nathan Ball Other [employer] Other 04-26-2023 11:30-0400 Body mass index (BMI) [Ratio] 32.53 kg/m2 Nathan Ball Other [employer] Other 04-26-2023 11:30-0400 Body weight 88.68 kg Nathan Ball Other [employer] Other 04-26-2023 11:30-0400 Diastolic blood pressure 80 mm[Hg] Nathan Ball Other [employer] Other 04-26-2023 11:30-0400 Respiratory rate 16 /min Nathan Ball Other [employer] Other 04-26-2023 11:30-0400 Systolic blood pressure 136 mm[Hg] Nathan Ball Other [employer] Other 04-18-2023 09:45-0400 Body height 165.1 cm Nathan Ball Other [employer] Other 04-18-2023 09:45-0400 Body mass index (BMI) [Ratio] 33.28 kg/m2 Nathan Ball Other [employer] Other 04-18-2023 09:45-0400 Body weight 90.72 kg Nathan Ball Other [employer] Other 04-18-2023 09:45-0400 Diastolic blood pressure 76 mm[Hg] Nathan Ball Other [employer] Other 04-18-2023 09:45-0400 Respiratory rate 20 /min Nathan Ball Other [employer] Other 04-18-2023 09:45-0400 SaO2% (BldA) [Mass fraction] 98 % Nathan Ball Other [employer] Other 04-18-2023 09:45-0400 Systolic blood pressure 132 mm[Hg] Nathan Ball Other [employer] Other 03-15-2023 10:45-0400 Body height 165.1 cm Nathan Ball Other [employer] Other 03-15-2023 10:45-0400 Body mass index (BMI) [Ratio] 31.95 kg/m2 Nathan Ball Other [facility] Other 03-15-2023 10:45-0400 Body weight 87.09 kg Nathan Ball Other [facility] Other 03-15-2023 10:45-0400 Diastolic blood pressure 77 mm[Hg] Nathan Ball Other [facility] Other 03-15-2023 10:45-0400 Respiratory rate 16 /min Nathan Ball Other [facility] Other 03-15-2023 10:45-0400 Systolic blood pressure 151 mm[Hg] Nathan Ball Other [facility] Other 03-09-2023 17:00-0400 Body temperature 97.9 [degF] DO Nathan Ball Work Phone: [facility] 03-09-2023 17:00-0400 Diastolic blood pressure 72 mm[Hg] DO Nathan Ball Work Phone: [facility] 03-09-2023 17:00-0400 Heart rate 54 /min DO Nathan Ball Work Phone: [facility] 03-09-2023 17:00-0400 Respiratory rate 16 /min DO Nathan Ball Work Phone: [facility] 03-09-2023 17:00-0400 SaO2% (BldA) [Mass fraction] 96 % DO Nathan Ball Work Phone: [facility] 03-09-2023 17:00-0400 Systolic blood pressure 140 mm[Hg] DO Nathan Ball Work Phone: [facility] 03-09-2023 08:11-0400 Body height 165.1 cm DO Nathan Ball Work Phone: [facility] 03-09-2023 08:11-0400 Body weight 90 kg DO Nathan Ball Work Phone: [facility] 03-07-2023 10:14-0400 Diastolic blood pressure 70 mm[Hg] Nathan E Ball Work Phone: [facility] [employer] DO Work Phone: 03-07-2023 10:14-0400 Systolic blood pressure 138 mm[Hg] Nathan E Ball Work Phone: [facility] [employer] DO Work Phone: 03-07-2023 10:04-0400 Body height 165.1 cm Nathan E Ball Work Phone: [facility] [employer] DO Work Phone: 03-07-2023 10:04-0400 Body mass index (BMI) [Ratio] 33.95 kg/m2 Nathan E Ball Work Phone: [facility] [employer] DO Work Phone: 03-07-2023 10:04-0400 Body surface area Derived from formula 1.99 m2 Nathan E Ball Work Phone: [facility] [employer] DO Work Phone: 03-07-2023 10:04-0400 Body weight 92.53 kg Nathan E Ball Work Phone: [facility] [employer] DO Work Phone: 03-07-2023 10:04-0400 Diastolic blood pressure 72 mm[Hg] Nathan E Ball Work Phone: [facility] [employer] 250 DO Work Phone: 03-07-2023 10:04-0400 Heart rate 45 /min Nathan E Ball Work Phone: [facility] [employer] DO Work Phone: 03-07-2023 10:04-0400 Systolic blood pressure 144 mm[Hg] Nathan E Ball Work Phone: [facility] [employer] DO Work Phone: 02-14-2023 11:15-0400 Body height 165.1 cm Nathan Ball Other [employer] Other 02-14-2023 11:15-0400 Body mass index (BMI) [Ratio] 32.61 kg/m2 Nathan Ball Other [employer] Other 02-14-2023 11:15-0400 Body weight 88.91 kg Nathan Ball Other [employer] Other 02-14-2023 11:15-0400 Diastolic blood pressure 72 mm[Hg] Nathan Ball Other [employer] Other 02-14-2023 11:15-0400 Respiratory rate 12 /min Nathan Ball Other [employer] Other 02-14-2023 11:15-0400 Systolic blood pressure 204 mm[Hg] Nathan Ball Other [employer] Other 02-02-2023 12:15-0400 Body height 165.1 cm Nathan Ball Other [employer] Other 02-02-2023 12:15-0400 Body mass index (BMI) [Ratio] 32.78 kg/m2 Nathan Ball Other [employer] Other 02-02-2023 12:15-0400 Body weight 89.36 kg Nathan Ball Other [employer] Other 02-02-2023 12:15-0400 Diastolic blood pressure 70 mm[Hg] Nathan Ball Other [employer] Other 02-02-2023 12:15-0400 Respiratory rate 12 /min Nathan Ball Other [employer] Other 02-02-2023 12:15-0400 Systolic blood pressure 201 mm[Hg] Nathan Ball Other [employer] Other 12-14-2022 10:00-0500 Body height 165.1 cm Nathan Ball Other [employer] Other 12-14-2022 10:00-0500 Body mass index (BMI) [Ratio] 32.53 kg/m2 Nathan Ball Other [employer] Other 12-14-2022 10:00-0500 Body weight 88.68 kg Nathan Ball Other [employer] Other 12-14-2022 10:00-0500 Diastolic blood pressure 70 mm[Hg] Nathan Ball Other [employer] Other 12-14-2022 10:00-0500 Respiratory rate 12 /min Nathan Ball Other [employer] Other 12-14-2022 10:00-0500 Systolic blood pressure 140 mm[Hg] Nathan Ball Other [employer] Other 12-04-2022 13:25-0500 Body height 166.4 cm Luis Mckenzie MD Work Phone: [facility] 12-04-2022 13:25-0500 Body temperature 97.11 [degF] Luis Mckenzie MD Work Phone: [facility] 12-04-2022 13:25-0500 Body weight 90.36 kg Luis Mckenzie MD Work Phone: [facility] 12-04-2022 13:25-0500 Diastolic blood pressure 54 mm[Hg] Luis Mckenzie MD Work Phone: [facility] 12-04-2022 13:25-0500 Heart rate 63 /min Luis Mckenzie MD Work Phone: [facility] 12-04-2022 13:25-0500 Respiratory rate 16 /min Luis Mceknzie MD Work Phone: [facility] 12-04-2022 13:25-0500 SaO2% (BldA) [Mass fraction] 96 % Luis Mckenzie MD Work Phone: [facility] 12-04-2022 13:25-0500 Systolic blood pressure 167 mm[Hg] Luis Mckenzie MD Work Phone: [facility] 11-14-2022 15:00-0500 Body height 165.1 cm Nathan Ball Other [employer] Other 11-14-2022 15:00-0500 Body mass index (BMI) [Ratio] 32.53 kg/m2 Nathan Ball Other [employer] Other 11-14-2022 15:00-0500 Body weight 88.68 kg Nathan Ball Other [employer] Other 11-14-2022 15:00-0500 Diastolic blood pressure 72 mm[Hg] Nathan Ball Other [employer] Other 11-14-2022 15:00-0500 Respiratory rate 12 /min Nathan Ball Other [employer] Other 11-14-2022 15:00-0500 Systolic blood pressure 130 mm[Hg] Nathan Ball Other [facility] Other 05-29-2022 10:06-0400 Body height 166.4 cm Luis Mckenzie MD Work Phone: [facility] 05-29-2022 10:06-0400 Body temperature 97.59 [degF] Luis Mckenzie MD Work Phone: [facility] 05-29-2022 10:06-0400 Body weight 89.72 kg Luis Mckenzie MD Work Phone: [facility] 05-29-2022 10:06-0400 Diastolic blood pressure 50 mm[Hg] Luis Mckenzie MD Work Phone: [facility] 05-29-2022 10:06-0400 Heart rate 50 /min Luis Mckenzie MD Work Phone: [facility] 05-29-2022 10:06-0400 Respiratory rate 16 /min Luis Mckenzie MD Work Phone: [facility] 05-29-2022 10:06-0400 SaO2% (BldA) [Mass fraction] 96 % Luis Mckenzie MD Work Phone: [facility] 05-29-2022 10:06-0400 Systolic blood pressure 155 mm[Hg] Luis Mckenzie MD Work Phone: [facility] Encounters Encounter Date Encounter Type Care Provider Facility Start: 08-04-2025 End: 08-04-2025 ambulatory Nathan Ball DO Work Phone: [facility] Work Phone: Start: 08-04-2025 End: 08-04-2025 Patient encounter procedure Kaia Krishna APRN -[facility] Work Phone: Start: 07-21-2025 End: 07-21-2025 ambulatory Nathan Hathaway DO Work Phone: [facility] Work Phone: Start: 07-21-2025 End: 07-21-2025 Patient encounter procedure Nathan Fransico REILLY [facility] Work Phone: Start: 07-15-2025 Non-patient / Non-visit Valentin peña MD -[email or web address] [facility] [employer] Work Phone: Start: 07-15-2025 End: 07-15-2025 ambulatory NATHAN HATHAWAY Facility:[facility] Start: 07-10-2025 End: 07-10-2025 Telephone encounter Valentin Leonard MD Work Phone: [facility] Comment on above: Orders; Patient Upda te Start: 07-08-2025 End: 07-10-2025 Telephone encounter Paolo Casillas APRN.INTERPRETIVE PROGRAM COORDINATOR Work Phone: [facility] Comment on above: Results Start: 07-08-2025 End: 07-08-2025 Patient encounter procedure Paolo Casillas APRN.INTERPRETIVE PROGRAM COORDINATOR Work Phone: Hematology/Oncology Start: 07-08-2025 Non-patient / Non-visit Fanny Bedoya APRN SUPERVISING FILM OR VIDEOTAPE EDITOR-C -[email or web address] [facility] [employer] Work Phone: Start: 07-08-2025 End: 07-08-2025 ambulatory Paolo Casillas APRN.INTERPRETIVE PROGRAM COORDINATOR Work Phone: Hematology/Oncology Comment on above: Abnormal SPEP (Prima ry Dx); Primary hypertension; Hyperlipidemia, unspecified hyperlipidemia type; Heart disease; Edema, unspecified type; Monoclonal gammopathy of undetermined significance; Anemia in other chronic diseases classified elsewhere Start: 07-06-2025 End: 07-06-2025 Telephone encounter Paolo Casillas APRN.INTERPRETIVE PROGRAM COORDINATOR Work Phone: Hematology/Oncology Comment on above: Lab Orders (nt) Start: 06-24-2025 Non-patient / Non-visit Nathan michelle DO -[email or web address] Work Phone: Start: 06-23-2025 Non-patient / Non-visit Nathan michelle DO -[facility] Work Phone: Start: 06-19-2025 End: 06-19-2025 ambulatory Nathan Ball DO Work Phone: [facility] Work Phone: Start: 06-19-2025 End: 06-19-2025 Patient encounter procedure Nathan Ball DO -[facility] Work Phone: Start: 05-19-2025 End: 05-19-2025 ambulatory Nathan Ball DO Work Phone: [facility] Work Phone: Start: 05-19-2025 End: 05-19-2025 Patient encounter procedure Nathan Ball DO -[facility] Work Phone: Start: 03-19-2025 End: 03-19-2025 ambulatory Nathan Ball DO Work Phone: [facility] Work Phone: Start: 03-19-2025 End: 03-19-2025 Patient encounter procedure Nathan Ball DO Work Phone: [facility] Work Phone: Start: 03-18-2025 Non-patient / Non-visit Cadence in Fransico DO Work Phone: [facility] Work Phone: Start: 03-17-2025 End: 03-17-2025 Subsequent hospital visit by physician Laura Blair Echo/Vasc Room 2 [facility] Comment on above: Essential hypertensi on; Palpitations Start: 03-17-2025 End: 03-17-2025 ambulatory HOLDEN [facility] Start: 03-13-2025 End: 03-13-2025 Patient encounter procedure Nathan Ball DO Work Phone: [facility] Work Phone: [...] End: 02-12-2025 Emergency department patient visit Nathan [place] Facility:[facility] Start: 02-10-2025 End: 02-10-2025 Clinisync Result Encounter Reyna Esparza MD Work Phone: [facility] External Department Unsolicited Start: 02-10-2025 End: 02-10-2025 Clinisync Result Encounter Reyna Esparza MD Work Phone: [facility] External Department Unsolicited Start: 01-26-2025 End: 01-26-2025 ambulatory [facility] Ambulatory Start: 01-23-2025 Non-patient / Non-visit Benjam in Ball DO Work Phone: [facility] Work Phone: Start: 01-22-2025 End: 01-22-2025 ambulatory Nathan Hathaway DO Work Phone: [facility] Work Phone: Start: 01-22-2025 End: 01-22-2025 Patient encounter procedure Nathan Ball DO Work Phone[facility] Work Phone: Start: 01-12-2025 End: 01-12-2025 Office outpatient visit 25 minutes Holden Rosado INTERNET SALESPERSON-INTERPRETIVE PROGRAM COORDINATOR Work Phone: [facility] Comment on above: BMI 33.0-33.9,adult (Primary Dx); Essential hypertension; Palpitations; ASHD (arteriosclerotic heart disease); Mixed hyperlipidemia Start: 01-12-2025 End: 01-12-2025 ambulatory HOLDEN [facility]ulatory Start: 12-29-2024 End: 12-29-2024 ambulatory Nathan Hathaway DO Work Phone: [facility] Work Phone: Start: 12-29-2024 End: 12-29-2024 Patient encounter procedure Nathan Fransico DO Work Phone: [facility] Work Phone: Start: 12-18-2024 Non-patient / Non-visit Benjam in Ball DO Work Phone: [facility] Work Phone: Start: 12-16-2024 End: 12-16-2024 Patient encounter procedure Nathan Hathaway DO Work Phone: [facility] Work Phone: Start: 11-25-2024 End: 11-25-2024 [...] 11-19-2024 ambulatory Nathan Hathaway DO Work Phone: [facility] Work Phone: Start: 11-19-2024 Non-patient / Non-visit Benjam in Ball DO Work Phone: [facility] Work Phone: Start: 11-17-2024 End: 11-17-2024 Admission to same day surgery center Nathan Hathaway DO Work Phone: [facility] [place] Work Phone: Start: 11-17-2024 End: 11-17-2024 ambulatory Nathan Hathaway DO Work Phone: [facility] Work Phone: Start: 10-09-2024 End: 10-09-2024 Refill Mildred Braxton COT Work Phone: [facility] Start: 10-08-2024 End: 10-08-2024 Office outpatient visit 25 minutes Edinson Pakdon DO Work Phone: [facility] Comment on above: ASHD (arteriosclerot ic heart disease); Essential hypertension; BMI 33.0-33.9,adult; Former smoker; S/P PTCA (percutaneous transluminal coronary angioplasty); Mixed hyperlipidemia; Coronary arteriosclerosis after percutaneous transluminal coronary angioplasty (PTCA) Start: 10-08-2024 End: 10-08-2024 ambulatory [facility] Ambulatory Start: 09-12-2024 Non-patient / Non-visit Benjam in Fransico DO Work Phone: [facility] Work Phone: Start: 09-11-2024 End: 09-11-2024 ambulatory [facility] [facility] Work Phone: Start: 09-11-2024 End: 09-11-2024 Patient encounter procedure [facility] Work Phone: Start: 09-04-2024 Non-patient / Non-visit [facility] Work Phone: Start: 07-16-2024 End: 07-16-2024 ambulatory [facility] Work Phone: Start: 07-16-2024 End: 07-16-2024 Patient encounter procedure [facility] Work Phone: Start: 06-03-2024 End: 06-03-2024 ambulatory DO Nathan Hathaway Work Phone: [facility] Work Phone: Start: 06-03-2024 End: 06-03-2024 Patient encounter procedure DO Nathan Hathaway Work Phone: [facility] Work Phone: Start: 05-20-2024 Non-patient / Non-visit DO Natalio Hathaway [facility] Phone[facility] Work Phone: Start: 04-30-2024 Non-patient / Non-visit DO Natalio Hathaway Work Phone: [facility] Work Phone: Start: 04-28-2024 End: 04-28-2024 ambulatory [facility]ER[facility] TSE Not Available Start: 04-21-2024 End: 04-21-2024 Office outpatient visit 15 minutes Holden Lambert Liebenthal INTERNET SALESPERSON-INTERPRETIVE PROGRAM COORDINATOR Work Phone: [facility] Comment on above: Essential hypertensi on (Primary Dx); ASHD (arteriosclerotic heart disease); Mixed hyperlipidemia; BMI 32.0-32.9,adult Start: 04-21-2024 End: 04-21-2024 ambulatory [facility] Start: 03-12-2024 End: 03-12-2024 Subsequent hospital visit by physician Laura Shabazz N[place] [address] [facility] Comment on above: ASHD (arteriosclerot ic heart disease) Start: 03-05-2024 End: 03-05-2024 Patient encounter procedure DO Nathan Hathaway Work Phone: [facility] [place] Work Phone: Start: 03-05-2024 End: 03-05-2024 ambulatory DO Nathan Hathaway Work Phone: [facility] Work Phone: Start: 03-05-2024 End: 03-05-2024 Office outpatient visit 25 minutes Holden Rosado INTERNET SALESPERSON-INTERPRETIVE PROGRAM COORDINATOR Work Phone: [facility] Comment on above: ASHD (arteriosclerot ic heart disease) (Primary Dx); Essential hypertension; Mixed hyperlipidemia; BMI 32.0-32.9,adult Start: 02-27-2024 End: 02-27-2024 Patient encounter procedure DO Nathan Hathaway Work Phone: [facility] Work Phone: Start: 02-21-2024 Non-patient / Non-visit DO Natalio Hathaway Work Phone: [facility] Work Phone: Start: 02-20-2024 Non-patient / Non-visit DO Natalio Hathaway Work Phone: [facility] Work Phone: Start: 02-19-2024 Non-patient / Non-visit DO Natalio Hathaway Work Phone: [facility] Work Phone: Start: 02-18-2024 Non-patient / Non-visit DO Natailo Hathaway Work Phone: [facility] Work Phone: Start: 02-13-2024 End: 02-13-2024 ambulatory [facility] Work Phone: Start: 02-13-2024 End: 02-13-2024 Patient encounter procedure [facility] Work Phone: Start: 02-02-2024 Non-patient / Non-visit [facility] Work Phone: Start: 02-01-2024 End: 02-01-2024 ambulatory [facility] Work Phone: Start: 02-01-2024 End: 02-01-2024 Patient encounter procedure [facility] Work Phone: Start: 01-04-2024 End: 01-04-2024 ambulatory Nathan Ball Other [employer] Other Start: 01-04-2024 Telephone encounter Nathan Hathaway [facility] Start: 12-18-2023 Non-patient / Non-visit [facility] Work Phone: Start: 11-27-2023 End: 11-27-2023 ambulatory Nathan Ball Other [employer] Other Start: 11-27-2023 Telephone encounter Nathan Ball [facility] Start: 11-02-2023 End: 11-02-2023 ambulatory Nathan Ball Other [employer] Other Start: 11-02-2023 Office outpatient vi sit 25 minutes Nathan Ball [facility] Start: 10-02-2023 End: 10-02-2023 ambulatory Nathan Ball Other [employer] Other Start: 10-02-2023 Office outpatient vi sit 25 minutes Nathan Ball [facility] Start: 09-26-2023 End: 09-26-2023 ambulatory Nathan Ball Other [employer] Other Start: 09-26-2023 Telephone encounter Nathan Ball [facility] Start: 09-21-2023 End: 09-21-2023 ambulatory Nathan Ball Other [employer] Other Start: 09-21-2023 Telephone encounter Nathan Ball [facility] Start: 2023 End: 2023 ambulatory Nathan Ball Other [employer] Other Start: 2023 Telephone encounter Nathan Ball [facility] Start: 09-13-2023 End: 09-13-2023 ambulatory Nathan Ball Other [employer] Other Start: 09-13-2023 Telephone encounter Nathan Ball [facility] Start: 09-11-2023 End: 09-11-2023 ambulatory Nathan Ball Other [employer] Other Start: 09-11-2023 Office outpatient vi sit 15 minutes Nathan Ball [facility] Start: 08-16-2023 End: 08-16-2023 ambulatory Nathan Ball Other [employer] Other Start: 08-16-2023 Telephone encounter Nathan Ball [facility] Start: 07-31-2023 End: 07-31-2023 ambulatory Nathan Ball Other [employer] Other Start: 07-31-2023 Telephone encounter Nathan Ball [facility] Start: 07-30-2023 End: 07-30-2023 ambulatory Nathan Ball Other [employer] Other Start: 07-30-2023 Telephone encounter Nathan Ball [facility] Start: 07-19-2023 End: 07-19-2023 ambulatory Nathan Ball Other [employer] Other Start: 07-19-2023 Telephone encounter Nathan Ball [facility] Start: 07-18-2023 End: 07-18-2023 ambulatory Nathan Ball Other [employer] Other Start: 07-18-2023 Telephone encounter Nathan Ball [facility] Start: 07-17-2023 End: 07-17-2023 ambulatory Nathan Ball Other [employer] Other Start: 07-17-2023 Nursing evaluation o f patient and report Nathan Hathaway [facility] Start: 06-28-2023 End: 06-28-2023 ambulatory Nathan Ball Other [employer] Other Start: 06-28-2023 Telephone encounter Nathan Hathaway [facility] Start: 06-25-2023 End: 06-25-2023 ambulatory Nathan Hathaway Other [employer] Other Start: 06-25-2023 Telephone encounter Nathan Hathaway [facility] Start: 06-21-2023 End: 06-21-2023 ambulatory Nathan Hathaway Other [employer] Other Start: 06-21-2023 Telephone encounter Nathan Hathaway [facility] Start: 06-19-2023 End: 06-19-2023 ambulatory Nathan Hathaway Other [employer] Other Start: 06-19-2023 Telephone encounter Nathan Hathaway [facility] Start: 06-18-2023 End: 06-18-2023 ambulatory Nathan Hathaway Other [employer] Other Start: 06-18-2023 Telephone encounter Nathan Hathaway [facility] Start: 06-15-2023 End: 06-15-2023 ambulatory Nathan Hathaway Other [employer] Other Start: 06-15-2023 Telephone encounter Nathan aHthaway [facility] Start: 06-08-2023 End: 06-08-2023 ambulatory Nathan Hathaway Other [employer] Other Start: 06-08-2023 Office outpatient vi sit 15 minutes Nathan Hathaway [facility] Start: 06-06-2023 Telephone encounter Cristy Rico Hematology/Oncology Comment on above: Results Start: 06-04-2023 End: 06-04-2023 ambulatory Luis Mckenzie MD Work Phone: [employer] Other Comment on above: Abnormal SPEP (Prima ry Dx); Anemia, unspecified type; Neuropathy - (NOS); Heart disease Start: 06-04-2023 End: 06-04-2023 Patient encounter procedure Luis Mckenzie MD Work Phone: [facility] Start: 06-04-2023 Telephone encounter Nathan Hathaway [facility] Start: 06-01-2023 End: 06-01-2023 ambulatory Nathan Hathaway Other [employer] Other Start: 06-01-2023 Telephone encounter Nathan Hathaway [facility] Start: 05-25-2023 End: 05-25-2023 ambulatory Nathan Hathaway Other [employer] Other Start: 05-25-2023 Transitional care julito stark [...] 05-16-2023 End: 05-16-2023 ambulatory Nathan Hathaway Other [employer] Other Start: 05-16-2023 Office outpatient vi sit 25 minutes Nathan Hathaway [facility] Start: 05-09-2023 End: 05-09-2023 ambulatory Nathan Hathaway Other [employer] Other Start: 05-09-2023 Office outpatient vi sit 25 minutes Nathan Hathaway [facility] Start: 05-09-2023 Telephone encounter Nathan Hathaway Work Phone: [facility] 250 DO Work Phone: Start: 04-26-2023 End: 04-26-2023 ambulatory Nathan Hathaway Other [employer] Other Start: 04-26-2023 Office outpatient vi sit 25 minutes Nathan Hathaway [facility] Start: 04-26-2023 Telephone encounter Nathan Hathaway [facility] Start: 04-18-2023 End: 04-18-2023 ambulatory Nathan Hathaway Other [employer] Other Start: 04-18-2023 Office outpatient vi sit 25 minutes Nathan Hathaway [facility] Start: 04-18-2023 Telephone encounter Nathan Hathaway [facility] Start: 03-27-2023 End: 03-27-2023 ambulatory Nathan Hathaway Other [employer] Other Start: 03-27-2023 Telephone encounter Nathan Hathaway [facility] Start: 03-15-2023 End: 03-15-2023 ambulatory Nathan Hathaway Other [facility] Other Start: 03-15-2023 Office outpatient vi sit 25 minutes Nathan Hathaway [facility] Start: 03-09-2023 End: 03-09-[address] Edinson Perry [facility] Other Start: 03-09-2023 Telephone encounter Nathan Hathaway [facility] Start: 03-09-2023 SURGNON, Provider: Edinson Perry, Status: Pen, Time: 10:00 AM Nathan Hathaway Work Phone: [facility] 250 DO Work Phone: Start: 03-09-2023 End: 03-09-2023 Admission to same day surgery center DO Nathan Ball Work Phone: [facility] Floor Supervisor Work Phone: Start: 03-08-2023 End: 03-08-2023 ambulatory DO Nathan Ball Work Phone: [facility] Work Phone: Start: 03-08-2023 End: 03-08-2023 Patient encounter procedure DO Nathan Ball Work Phone: [facility] Work Phone: Start: 03-07-2023 Office consultation new/estab patient 80 min Nathan Hathaway Work Phone: [facility] 250 DO Work Phone: Start: 03-07-[address] Edinson albrecht [place] Facility: Start: 03-05-2023 End: 03-05-2023 ambulatory Nathan Hathaway Other [employer] Other Start: 03-05-2023 Telephone encounter Nathan Hathaway [facility] Start: 03-01-2023 End: 03-02-[address] NATHAN HATHAWAY Facility:[facility] Start: 02-27-2023 End: 02-27-2023 ambulatory Nathan Hathaway Other [employer] Other Start: 02-27-2023 Telephone encounter Nathan Hathaway [facility] Start: 02-20-2023 End: 02-20-2023 ambulatory Nathan Hathaway Other [employer] Other Start: 02-20-2023 Telephone encounter Nathan Hathaway [facility] Start: 02-14-2023 End: 02-14-2023 ambulatory Nathan Fransico Other [employer] Other Start: 02-14-2023 Office outpatient vi sit 25 minutes Nathan Ball [facility] Start: 02-14-2023 Telephone encounter Nathan Fransico [facility] Start: 02-11-2023 End: 02-11-2023 ambulatory Nathan Fransico Other [employer] Other Start: 02-11-2023 Telephone encounter Nathan Hathaway [facility] Start: 02-08-2023 End: 02-09-2023 Evaluation and management of inpatient DR NATHAN HATHAWAY Facility:[facility] Start: 02-02-2023 End: 02-02-2023 ambulatory Nathan Hathaway Other [employer] Other Start: 02-02-2023 Office outpatient vi sit 25 minutes Nathan Hathaway [facility] Start: 01-08-2023 End: 01-09-[address] NATHAN HATHAWAY Facility:[facility] Start: 12-21-2022 End: 12-21-2022 ambulatory Nathan Hathaway Other [employer] Other Start: 12-21-2022 Telephone encounter Nathan Hathaway [facility] Start: 12-20-2022 End: 12-20-2022 ambulatory Nathan Hathaway Other [employer] Other Start: 12-20-2022 Telephone encounter Nathan Hathaway [facility] Start: 12-14-2022 End: 12-14-2022 ambulatory Nathan Hathaway Other [employer] Other Start: 12-14-2022 Patient encounter procedure Nathan Hathaway [facility] Start: 12-04-2022 End: 12-04-2022 ambulatory Luis Mckenzie MD Work Phone: Hematology/Oncology Comment on above: Abnormal SPEP (Prima ry Dx); Neuropathy - (NOS); Lung nodules Start: 12-04-2022 End: 12-04-2022 Patient encounter procedure Luis Mckenzie MD Work Phone: [facility] Start: 11-23-2022 End: 11-23-2022 ambulatory Nathan Hathaway Other [employer] Other Start: 11-23-2022 Telephone encounter Nathan CHURCHILL [facility] Start: 11-16-2022 End: 11-17-[address] NATHAN HATHAWAY Facility:[facility] Start: 11-14-2022 End: 11-14-2022 ambulatory Nathan Hathaway Other [employer] Other Start: 11-14-2022 Office outpatient vi sit 25 minutes Nathan Hathaway [facility] Start: 09-11-2022 End: 09-12-[address] NATHAN [...] 12-13-2021 Adult health examination Lauri Hathaway Other [employer] Other Procedures Date Procedure Procedure Detail Performing Clinician Start: 02-12-2025 Plain chest X-ray Lauri Hathaway DO Work Phone: Start: 02-10-2025 Us soft tissue head & neck real time imge docm Reyna Esparza MD Work Phone: Start: 11-17-2024 [employer] Nathan B all DO Work Phone: Start: 03-12-2024 Cv strs tst xers&/or rx cont ecg trcg only Holden Rosado INTERNET SALESPERSON-INTERPRETIVE PROGRAM COORDINATOR Work Phone: Start: 10-17-2023 History of placement of stent for coronary artery disease S/P coronary artery stent placement Holden Rosado INTERNET SALESPERSON-INTERPRETIVE PROGRAM COORDINATOR Work Phone: Start: 05-17-2023 CT angiography of [...] Author Start: 07-08-2028 Diabetes Screening Diabetes Screening [facility] Start: 03-05-2027 Diabetes Screening Diabetes Screening [facility] Start: 11-05-2026 Diabetes Screening Diabetes Screening [facility] Start: 06-04-2026 DIABETES SCREEN DIABETES SCREEN [facility] Start: 11-27-2025 DIABETES SCREEN DIABETES SCREEN [facility] Start: 10-27-2025 End: 10-27-2025 Patient encounter procedure 10/27/2025 2:10 PM EST Office Visit [facility] [address] [facility] [address] [place] [address] Edinson Perry DO [address] [facility] [address] [place] [address] [facility] Start: 10-07-2025 End: 10-07-2025 ambulatory 10/07/2025 3:00 PM EST Visit (SP) Office Hematology/Oncology [address] [place] [address] Valentin Leonard MD [address] [place] [address] 3 month ELDON with lab Hematology/Oncology Comment on above: 3 month ELDON with lab Start: 10-07-2025 End: 10-07-2025 Patient encounter procedure 10/07/2025 2:45 PM EST Office Visit [facility] [address] [place] [address] 3 month ELDON with lab [facility] Comment on above: 3 month ELDON with lab Start: 08-24-2025 DIABETES SCREEN DIABETES SCREEN [facility] Start: 07-21-2025 Patient referral [facility] Work Phone: Start: 07-08-2025 End: 07-08-2025 ambulatory 07/08/2025 10:00 AM EDT Visit (SP) Office Hematology/Oncology [address] [place] [address] Paolo Casillas APRN.[facility] [address] [place] [place] [address] Dr Hathaway 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 [facility] Hematology/Oncology Comment on above: Dr Hathaway 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 [facility] Start: 07-08-2025 End: 07-08-2025 Patient encounter procedure 07/08/2025 10:00 AM EDT Office Visit [facility] [address] [place] [address] Labs Per January Staff Message [facility] Comment on above: Labs Per January Staff Message Start: 07-06-2025 End: 10-05-2025 CBC W Auto Differential panel - Blood COMPLETE BLOOD COUNT AND DIFFERENTIAL Lab Routine Abnormal SPEP Expected: 07/06/2025, Expires: 10/05/2025 [facility] Work Phone: Comment on above: Expected: 07/06/2025, Expires: Start: 07-06-2025 End: 10-05-2025 Comprehensive metabolic 2000 panel - Serum or Plasma COMPREHENSIVE METABOLIC PANEL Lab Routine Abnormal SPEP Expected: 07/06/2025, Expires: 10/05/2025 [facility] Comment on above: Expected: 07/06/2025, Expires: Start: 07-06-2025 End: 10-05-2025 MONOCLONAL PROTEIN, SERUM (BLOOD) MONOCLONAL PROTEIN, SERUM (BLOOD) Lab Routine Abnormal SPEP Expected: 07/06/2025, Expires: 10/05/2025 [facility] Comment on above: Expected: 07/06/2025, Expires: Start: 07-06-2025 End: 10-05-2025 PROTEIN ELECTROPHORESIS SERUM W/INTERP PROTEIN ELECTROPHORESIS SERUM W/INTERP Lab Routine Abnormal SPEP Expected: 07/06/2025, Expires: 10/05/2025 [facility] Comment on above: Expected: 07/06/2025, Expires: Start: 06-29-2025 Influenza vaccination Influenza Vaccine (#1) [facility] Start: 05-22-2025 DIABETES SCREEN DIABETES SCREEN [facility] Start: 05-04-2025 COVID-19 Vaccine ( season) COVID-19 Vaccine () [facility] Start: 04-29-2025 End: 04-29-2025 Patient encounter procedure 04/29/2025 9:30 AM EDT Office Visit [facility] [address] [place] [address] Fercho Tse DO [address] [place] [address] [facility] Start: 03-17-2025 End: 03-17-2025 Patient encounter procedure 03/17/2025 10:45 AM EDT Appointment [place] [address] [place] [address] [facility] Start: 02-25-2025 End: 02-25-2025 Patient encounter procedure [facility] Comment on above: Arrived Start: 01-26-2025 End: 01-26-2025 Professional / ancillary services management 01/26/2025 3:00 PM EDT Ancillary Procedure [place] [address] [place] [address] [place] [address] [facility] Start: 01-12-2025 End: 01-12-2026 Holter monitor study Holter Or Event [facility] Routine Palpitations Expected: 01/12/2025 (Approximate), Expires: 01/12/2026 [facility] Work Phone: Comment on above: Expected: 01/12/2025 (Approximate), Expi res: 01/12/2026 Start: 01-12-2025 End: 01-12-2027 US Heart Transthoracic Transthoracic Echo Complete Echocardiography Routine Essential hypertension Palpitations Expected: 01/12/2025 (Approximate), Expires: 01/12/[address] [facility] Work Phone: Comment on above: Expected: 01/12/2025 (Approximate), Expi res: 01/12/2027 Start: 11-25-2024 End: 11-25-2024 Patient encounter procedure 11/25/2024 2:00 PM EST Office Visit [facility] [address] [facility] [address] [place] [address] Reyna Esparza MD [address] [facility] [address] [place] [address] Arrived [facility] Comment on above: Arrived Start: 11-19-2024 Patient referral [facility] Work Phone: Start: 11-17-2024 [facility] Start: 11-17-2024 [facility] Start: 10-29-2024 Advance Directive Discussion Advance Directive Discussion [facility] Start: 10-08-2024 End: 10-08-2024 Patient encounter procedure 10/08/2024 10:40 AM EST Office Visit [address] [place] [address] Edinson Perry, [address] [facility] [address] [place] [address] [facility] Start: 06-29-2024 Covid-19 Vaccine ( season) Covid-19 Vaccine () [facility] Start: 06-29-[address] [facility] Start: 04-21-2024 End: 04-21-2025 Basic metabolic 2000 panel - Serum or Plasma Basic Metabolic Panel Lab Routine ASHD (arteriosclerotic heart disease) Expected: 04/21/2024 (Approximate), Expires: 04/21/2025 [facility] Work Phone: Comment on above: Expected: 04/21/2024 (Approximate), Expi res: 04/21/2025 Start: 04-21-2024 End: 04-21-2024 Patient encounter procedure 04/21/2024 10:30 AM EDT Office Visit [address] [place] [address] Holden Rosado, INTERNET SALESPERSON-INTERPRETIVE PROGRAM COORDINATOR [address] [facility] [address] [place] [address] [facility] Start: 03-12-2024 End: 03-12-2024 Patient encounter procedure 03/12/2024 10:15 AM EDT Appointment [address] [place] [id number] [facility] Start: 03-12-2024 End: 03-12-2024 Patient encounter procedure [facility] Start: 03-05-2024 End: 03-05-2025 Basic metabolic 2000 panel - Serum or Plasma Basic Metabolic Panel Lab Routine Essential hypertension Expected: 03/05/2024 (Approximate), Expires: 03/05/[address] [facility] Work Phone: Comment on above: Expected: 03/05/2024 (Approximate), Expi res: 03/05/2025 Start: 03-05-2024 End: 03-05-2026 NM Heart Perfusion W stress and W radionuclide IV Nuclear Stress Test Cardiac Nuclear Medicine Routine ASHD (arteriosclerotic heart disease) Expected: 03/05/2024 (Approximate), Expires: 03/05/2026 [facility] Work Phone: Comment on above: Expected: 03/05/2024 (Approximate), Expi res: 03/05/2026 Start: 02-09-[address] [facility] Start: 10-29-2023 Advance Directive Discussion Advance Directive Discussion [facility] Start: 09-18-2023 FUV, Provider: Edinson Perry, Status: Pen, Time: 11:20 AM FUV, Provider: Edinson Perry, Status: Pen, Time: 11:20 AM [facility] [address] DO Work Phone: Start: 06-29-2023 COVID-19 Vaccine ( season) COVID-19 Vaccine ( season) [facility] Start: 06-29-2023 Influenza vaccination INFLUENZA (#1) [facility] Start: 05-29-2023 Adult depression screening assessment DEPRESSION SCREENING [facility] Start: 05-29-2023 FUV, Provider: Edinson Perry, Status: Nahid, Time: 10:20 AM FUV, Provider: Edinson Perry, Status: Pen, Time: 10:20 AM [facility] 250 DO Work Phone: Start: 05-18-2023 [facility] Start: 05-17-2023 Hospital admission [facility] Start: 03-09-2023 [facility] Start: 01-13-2023 COVID-19 VACCINE (6 - Pfizer series) COVID-19 VACCINE (6 - Pfizer series) [facility] Start: 11-22-2022 Adult depression screening assessment DEPRESSION SCREENING [facility] Start: 10-29-2022 ADVANCE DIRECTIVE DISCUSSION ADVANCE DIRECTIVE DISCUSSION [facility] Start: 10-29-2022 DEPRESSION ASSESSMENT DEPRESSION ASSESSMENT [facility] Start: 10-13-2022 COVID-19 Vaccine (3 - Pfizer risk series) COVID-19 Vaccine (3 - Pfizer risk series) [facility] Start: 06-29-2022 Influenza vaccination INFLUENZA (#1) [facility] Start: 03-25-2022 COVID-19 VACCINE (5 - Booster for Pfizer series) COVID-19 VACCINE (5 - Booster for Pfizer series) [facility] Start: 10-29-2021 ADVANCE DIRECTIVE DISCUSSION ADVANCE DIRECTIVE DISCUSSION [facility] Start: 10-29-2021 DEPRESSION ASSESSMENT DEPRESSION ASSESSMENT [facility] Start: 09-16-2021 Shingrix Vaccine (3 of 3) Shingrix Vaccine (3 of 3) [facility] Start: 09-16-2021 Zoster Vaccines (2 of 2) Zoster Vaccines (2 of 2) [facility] Start: 07-16-2021 SHINGRIX VACCINE (2 of 2) SHINGRIX VACCINE (2 of 2) [facility] Start: 2017 RSV High Risk: (Elderly (60+) or Population) (1 - 1-dose 75+ series) RSV High Risk: (Elderly (60+) or Population) (1 - 1-dose 75+ series) [facility] Start: 2017 RSV Vaccine (1 - 1-dose 75+ series) RSV Vaccine (1 - 1-dose 75+ series) [facility] Start: 07-17-2014 DTaP/Tdap/Td Vaccines (1 - Tdap) DTaP/Tdap/Td Vaccines (1 - Tdap) [facility] Start: 07-17-2014 Urine microalbumin profile DTaP,Tdap,Td Vaccine (1 - Tdap) [facility] Start: 2007 BONE DENSITY BONE DENSITY [facility] Start: 2007 PNEUMOCOCCAL: 65+ (1 - PCV) PNEUMOCOCCAL: 65+ (1 - PCV) [facility] Start: 2007 Screening for osteoporosis Bone Density Screening [facility] Start: 08-29-2007 Medicare Annual Wellness Visit Medicare Annual Wellness Visit [facility] Start: 2002 RSV patients and/or patients aged 60+ years (1 - 1-dose 60+ series) RSV patients and/or patients aged 60+ years (1 - 1-dose 60+ series) [facility] Start: 1964 DTaP/Tdap/Td Vaccines (1 - Tdap) DTaP/Tdap/Td Vaccines (1 - Tdap) [facility] Start: 1961 Urine microalbumin profile DTAP,TDAP,TD (1 - Tdap) [facility] Start: 1960 Anxiety Screening Anxiety Screening [facility] Start: 1960 Depression Screening Depression Screening [facility] Start: 1960 Diabetes mellitus screening Diabetes Screening [facility] Start: 1942 Creatinine measurement Creatinine Level [facility] Start: 1942 Lipid panel Lipid Panel [facility] Start: 1942 Medicare Annual Wellness Visit Medicare Annual Wellness Visit (AWV) [facility] Start: 1942 Potassium measurement Potassium Level [facility] Start: 1942 Screening for osteoporosis Bone Density Scan [facility] Comprehensive metabo lic 2000 panel - Serum or Plasma [facility] End: 06-28-2023 Ct abdomen & pelvis w/contrast material CT ABD/PEL W IVCON Radiology Routine Disorder of adrenal gland (HCC) 1 Occurrences starting 05/29/2022 until 06/28/2023 [facility] Work Phone: Comment on above: 1 Occurrences starting 05/29/2022 until 06/28/2023 End: 06-28-2023 CT CHEST W IVCON CT CHEST W IVCON Radiology Routine Lung nodules 1 Occurrences starting 05/29/2022 until 06/28/2023 [facility] Work Phone: Comment on above: 1 Occurrences starting 05/29/2022 until 06/28/2023 Patient Education [facility] Work Phone: Patient referral [facility] Work Phone: End: 03-17-2025 US Heart [facility] Work Phone: Comment on above: Once for 1 Occurrences starting 03/17/20 25 until 03/17/2025 XR Knee - right 4 Views [facility] Immunizations Immunization Date Immunization Notes Care Provider Fa cility 07-16-2024 influenza, high dose seasonal, preservative-free [facility] 07-16-2024 influenza virus vaccine, unspecified formulation Paolo Casillas APRN.CNP Work Phone: [facility] 08-06-2023 influenza virus vaccine, unspecified formulation [facility] 08-06-2023 influenza, high dose seasonal, preservative-free Nathan Hathaway Other [employer] Other 09-15-2022 COVID-19 Pfizer (Pediatric) Nathan Hathaway Other [facility] 09-15-2022 Pfizer COVID-19 Vac Bivalent 30 MCG/0.3ML Intramuscular Suspension Nathan Hathaway Work Phone: [facility] 08-11-2022 influenza virus vaccine, split virus (incl. purified surface antigen) Nathan Hathaway Other [employer] Other 08-11-2022 influenza virus vaccine, unspecified formulation [facility] 01-28-2022 COVID-19 mRNA, Comirnaty (Pfizer) DO Nathan Hathaway Work Phone: [facility] 01-28-2022 COVID-19 Pfizer Nathan michelle Other [facility] 07-30-2021 COVID-19 vaccine, ag e 12+ yr (iPerceptions-BIOBeisen - PURPLE TOP) Luis Mckenzie MD Work Phone: [facility] 07-22-2021 zoster vaccine, live Suly Hathaway Other [facility] 07-19-2021 influenza, high-dose , quadrivalent vaccine (FLUZONE HIGH DOSE QUADRIVALENT) Luis Mckenzie MD Work Phone: [facility] 07-18-2021 influenza virus vaccine, split virus (incl. purified surface antigen) Nathan Hathaway Other [employer] Other 07-18-2021 influenza virus vaccine, unspecified formulation [facility] 05-21-2021 zoster vaccine recombinant Luis Mckenzie MD Work Phone: [facility] 05-21-2021 zoster vaccine, live Benjami n Fransico Other [facility] 12-18-2020 COVID-19 vaccine, ag e 12+ yr (PFIZER-BIONTECH - PURPLE TOP) Luis Mckenzie MD Work Phone: [facility] 11-27-2020 COVID-19 Vaccine Moderna - Documentation Purposes Only Nathan Hathaway Other [facility] 11-27-2020 COVID-19 vaccine, ag e 12+ yr (PFIZER-BIONTECH - PURPLE TOP) Luis Mckenzie MD Work Phone: [facility] 08-11-2020 influenza virus vaccine, split virus (incl. purified surface antigen) Nathan Hathaway Other [employer] [facility] [employer] Other 08-11-2020 influenza virus vaccine, unspecified formulation [facility] 07-09-2019 AS03 adjuvant Arrival Radiol ogy Work Phone: [facility] 07-09-2019 Seasonal trivalent influenza vaccine, adjuvanted, preservative free Luis Mckenzie MD Work Phone: [facility] 08-13-2018 AS03 adjuvant Arrival Radiol ogy Work Phone: [facility] 08-13-2018 influenza virus vaccine, split virus (incl. purified surface antigen) Nathan Hathaway Other [employer] Other 08-13-2018 influenza virus vaccine, unspecified formulation [facility] 08-13-2018 Seasonal trivalent influenza vaccine, adjuvanted, preservative free Luis Mckenzie MD Work Phone: [facility] 08-03-2017 influenza virus vaccine, split virus (incl. purified surface antigen) Nathan Hathaway Other [facility] [employer] Other 08-03-2017 influenza virus vaccine, unspecified formulation [facility] 08-03-2017 influenza, high dose seasonal, preservative-free Luis Mckenzie MD Work Phone: [facility] 07-13-2016 influenza virus vaccine, split virus (incl. purified surface antigen) Nathan Hathaway Other [facility] [employer] Other 07-13-2016 influenza virus vaccine, unspecified formulation [facility] 09-13-2015 pneumococcal conjuga te vaccine, 13 valent Nathan Hathaway Other [facility] 08-17-2015 influenza virus vaccine, split virus (incl. purified surface antigen) Nathan Hathaway Other [facility] [employer] Other 08-17-2015 influenza virus vaccine, unspecified formulation [facility] 07-16-2014 tetanus and diphther ia toxoids, adsorbed, preservative free, for adult use (5 Lf of tetanus toxoid and 2 Lf of diphtheria toxoid) Nathan Hathaway Other [facility] 07-09-2013 tetanus and diphther ia toxoids, adsorbed, preservative free, for adult use (5 Lf of tetanus toxoid and 2 Lf of diphtheria toxoid) Nathan Hathaway Other [facility] 08-11-2010 pneumococcal polysaccharide vaccine, 23 valent Nathan Hathaway Other [facility] Payers Date Payer Category Payer Medicare supplementa l policy (as second payer) [employer] [id number] 2022 Unknown 2020 Private Health Insurance [facility] AAR SUPPLEMENT [id number] 2020-Present [phone] [address] [place] [address] Indemnity [id number] 2020 Private Health Insurance [id number] 2007 Medicare MEDICARE MEDICAR E A AND B [id number] 2007-Present [phone] [place] [address] Medicare [id number] 2007 Medicare [id number]. [id number] 1959 Medicare [id number] [id number] 1959 Unknown [id number] 2.16.840.1.443224.19 1942 Unknown [id number] 2.16.840.1.550380.3.579. 2.593 1942 Unknown [id number] 2.16.840.1.936375.3.579. 2.593 1942 Unknown [id number] 2.16.840.1.259777.3.579. 2.593 1942 Unknown [id number] 2.16.840.1.383151.3.579. 2.593 1942 Unknown [id number] 2.16.840.1.041127.3.579. 2.593 1942 Unknown [id number] 2.16.840.1.956916.3.579. 2.593 1942 Unknown [id number] 2.16.840.1.069019.3.579. 2.593 1942 Unknown [id number] 2.16.840.1.585889.3.579. 2.356 1942 Unknown [id number] 2.16.840.1.183826.3.579. 2.356 1942 Unknown [id number] 2.16.840.1.601146.3.579. 2.1259 1942 Unknown [id number] 2.16.840.1.903353.3.579. 2.1259 1942 Unknown [id number] 2.16.840.1.238058.3.579. 2.1259 1942 Unknown [id number] 2.16.840.1.687590.3.579. 2.1244 1942 Unknown [id number] 2.16.840.1.876834.3.579. 2.1244 1942 Unknown [id number] 2.16.840.1.570958.3.579. 2.1244 1942 Unknown [id number] 2.16.840.1.825847.3.579. 2.1244 1942 Unknown [id number] 2.16.840.1.647543.3.579. 2.1246 Medicare Medicare Outpatient [id number] Unknown [id number] Social History Date Type Detail Facility Start: 08-01-2021 End: 03-05-2024 Tobacco smoking status [facility] Ex-smoker [facility] End: 10-29-1992 History of tobacco use Cigarette Smoker [facility] Start: 08-01-2021 End: 03-05-2024 Tobacco use and exposure Smokeless tobacco non-user [facility] Start: 1940 Sex Assigned At Not on file [facility] Start: 05-12-2022 End: 03-17-2025 Exposure to SARS-CoV-2 (event) Not sure [facility] End: 10-29-1992 History of tobacco use Current smoker [facility] Start: 12-04-2022 End: 06-04-2023 Sex Assigned At [facility] Start: 12-04-2022 End: 06-04-2023 No illicit drug use No illicit drug use [facility] Comment on above: 2 coffees in am and 1 coffee at hs; 1997; Start: 1940 Sex Assigned At Female F [facility] Start: 06-04-2023 End: 07-08-2025 Alcohol intake Ex-drinker (finding) [facility] Start: 09-29-2012 Adult Depression Screening Assessment 0 [facility] Start: 12-18-2023 End: 02-12-2025 Tobacco smoking status NHIS Never smoked tobacco (finding) [facility] Start: 03-05-2024 End: 01-12-2025 Alcoholic beverage intake Lifetime non-drinker (finding) [facility] Work Phone: Start: 09-11-2024 End: 03-19-2025 Sex Female (finding) [facility] Medical Equipment Procedure Code Equipment [...] Facility 05-18-2023 Functional status Patient at Baseline [facility] Work Phone: 03-09-2023 Functional status Patient at Baseline [facility] Work Phone: Mental Status Date Assessment Result Facility 05-18-2023 Cognitive function Cognitive Sta tus Patient at Baseline [facility] Work Phone: 03-09-2023 Cognitive function Cognitive Sta tus Patient at Baseline [facility] Work Phone: Clinical Notes 05-29-2022 to 07-10-2025 Telephone Encounter - Yolanda Cboian RN - 07/10/2025 2:11 PM EDTTelephone Encounter - Yolanda Cobian RN - 07/10/2025 2:11 PM EDTTelephone Encounter - Cat Landeros S - 07/10/2025 11:37 AM EDT Note Date & Type Note Facility 07-10-2025 Telephone encounter Note Refer to providers phone encounter for details of follow up/intervention Yolanda Cobian RN [facility] 07-10-2025 Miscellaneous Notes Refer to providers phone encounter for details of follow up/intervention Yolanda Cobian RN Labs still pending. Yolanda Cobian RN Please call Her daughter Marianna with today's lab results. [phone] documented in this encounter [facility] 07-10-2025 Telephone encounter Note Called Dr Hathaway's office and spoke with Dayana. I informed her of Mrs Joaquin worsening anemia/renal function and elevated blood proteins (refer to note per Kg Petit PA-C from today). She appreciated the update and will discuss with Dr Hathaway. Yolanda Cobian RN [facility] 07-10-[address] Hathaway's office [...] Hathaway's office Please return the call at [phone] KERRY Menendez documented in this encounter [facility] 07-10-[address] Nathan Hathaway's office is calling today regarding Asking the question why labs were repeated on 07/08/2025 when she just had labs drawn on 06/23/2025. Please call Dr Hathaway's office back. Patient has been identified by name and birthdate. Person calling: Dr Nathan Hathaway's office Please return the call at [phone] KERRY Menendez [facility] 07-10-2025 Telephone encounter Note Labs still pending. Yolanda Cobian RN [facility] 07-08-2025 Telephone encounter Note Please call Her daughter Marianna with today's lab results. [phone] [facility] 07-07-2025 Note HNO ID: [id number] Author: PAOLO CASILLAS APRN.INTERPRETIVE PROGRAM COORDINATOR Service: ? Author Type: Nurse Practitioner Type: [...] Vaping Use Vap (more content not included)... [facility] 07-07-2025 History of Presen t illness [...] 06/23/2025. (Scanned) IgM elevated, M-protein 0.2, and [place]/Lambda ration 10.59. Will repeat labs today. Hemoglobin [...] shortness of breath and was hospitalized at [facility] and treated for suspected pneumonia. Apparently it was later felt she had heart disease, and cardiac catheterization revealed severe coronary artery disease. She subsequently underwent stent placement at [facility]. April 2023 she developed severe shortness of breath and was hospitalized at [facility] 05/17/2023 with CHF. She improved with diuresis [...] which included preparing to see the patient, [id number] patient care, completing clinical documentation, obtaining and/or reviewing separately obtained history, performing a medically appropriate examination, counseling and educating the patient/family/caregiver, ordering medications, tests, or procedures, independently interpreting results (not separately reported), and communicating results to the patient/family/caregiver. documented in this encounter [facility] 07-06-2025 Telephone encounter Note Patient coming Sunday07/08/25 for follow up labs. Please add lab orders. Thanks. Loree Rosado MA [facility] 05-19-2025 Evaluation note Diagnosis Onset Date Resolution Acute bronchitis due to other specified organisms noneactive April 292024 3:17pm Acute exacerbation of chronic obstructive airways disease noneactive May 19, 2025 3:17pm ASHD (arteriosclerotic heart disease) acute June 19 9:23am Chronic bronchitis acute June 19, 2025 9:23am Chronic kidney disease acute [facility] 2024 9:23am Chronic venous insufficiency acute June 19 9:23am Essential hypertension acute [facility] 2024 9:23am OMAR (generalized anxiety disorder) [...] visit, subsequent noneactive June 19, 025 9:23am [facility] Work Phone: 1(908) 945-775707-22-2025 Evaluation note* Diagnosis Onset Date Resolution Status Admit Date Acute bronchitis due to othe r specified organisms noneactive May 19, 025 3:17pm Acute exacerbation of chroni c obstructive airways disease noneactive May 19, 2025 3:17pm Anemia acute June 19, 025 9:23am ASHD (arteriosclerotic heart disease) acute June 19 9:23am Chronic bronchitis acute June 19, 2025 9:23am Chronic kidney disease acute [facility] 2024 9:23am Chronic venous insufficiency acute June 19, 2025 9:23am Essential hypertension acute [facility] 2024 9:23am OMAR (generalized anxiety disorder) [...] fraction (HFpEF) noneactive July 21, 2025 3:32pm [facility] Work Phone: 1(710) 532-408307-22-2025 Evaluation note* Diagnosis Onset Date Resolution Status [...] fraction (HFpEF) noneactive July 21, 2025 3:32pm [facility] Work Phone: 1(862) 206-399305-16-2025 Evaluation note* Diagnosis Onset Date Resolution Status [...] fraction (HFpEF) noneactive March 19, 2025 11:21am [facility] Work Phone: 1(852) 640-714604-15-2025 History of Present illness Narrative* Reyna Esparza MD - 02/25/2025 9:00 AM EDT Subjective Patient ID: Lashaun Joaquin is a 84 y.o. female who presents for Thyroid Nodule (Follow ultrasound [facility] 02/10/25) US shows an 11mm nodule that is unchanged and mult subcentimeter nodules. No family history on file. Active Ambulatory Problems Diagnosis Date Noted Dry eyes 04/28/2024 Epiretinal membrane (ERM) of left eye 04/28/2024 Blepharitis of upper and lower eyelids of both eyes 04/28/2024 Abnormal cardiovascular stress test 11/24/2024 Adrenal nodule ([facility]/HCC) 11/24/2024 Anemia 11/24/2024 ASHD (arteriosclerotic heart disease) ([facility]) 10/17/2023 Atrophic vaginitis 11/24/2024 BMI 33.0-33.9,adult 03/05/2024 Cervical spondylosis with radiculopathy 11/24/2024 Chronic bronchitis (CMS/HCC) 11/24/2024 Chronic heart failure with preserved ejection fraction (HFpEF) ([facility]) 11/24/2024 Chronic obstructive pulmonary disease with (acute) exacerbation ([facility]) 11/24/2024 Chronic venous insufficiency 11/24/2024 COVID 10/17/2023 Elevated serum immunoglobulin free light chain level 11/24/2024 Essential hypertension (CMS/HCC) 10/17/2023 Flash pulmonary edema ([facility]/HCC) 11/24/2024 Former smoker 10/17/2023 OMAR (generalized anxiety disorder) ([facility]/HCC) 11/24/2024 Gastroesophageal reflux disease with esophagitis without [...] then annually if stable [id number] Miscellaneous Notes* Telephone Encounter - Loree Rosado MA - 07/06/2025 9:31 AM EDT Patient coming Sunday07/08/25 for follow up labs. Please add lab orders. Thanks. Loree Rosado MA documented in [facility] encounter[facility] Evaluation note* Diagnosis Onset Date Resolution Status Admit Date Chronic kidney disease acute [facility] 2024 9:51am Nocturnal leg cramps acute [facility] 2024 9:51am Right knee pain acute December [...] 2025 1 1:21am Chronic kidney disease acute [place] 2024 11:21am Chronic venous insufficiency acute March 19, 2025 11:21am Essential hypertension acute [place] 2024 11:21am Subclinical hypothyroidism acute March 19, 2025 11:21am Thyroid nodule acute March 19, 2025 11:21am [facility] Work Phone: 1(282) 246-131903-17-2025 Evaluation + Plan note* Assessment & Plan Note - CINTIA Gallego - 01/12/2025 3:48 PM EDTAssociated Problem(s): Cardiac and Vasculature January 2024 TTE LVEF greater than 55% Biatrial enlargement mild [facility] Work Phone: 1([phone]) 790-974603-17-2025 Miscellaneous Notes* Assessment & Plan Note - [...] heart disease) March 09, 2023 Mid/proximal RCA PCI/[place] 4x15mm & 4x18mm Proximal diagonal PCI/[place] 2.5 x 18 mm LAD 10% Circumflex [...] hypertension Optimal in office documented in this [facility] Work Phone: 1(567) 887-838803-17-2025 Evaluation + Plan note* Assessment & Plan Note - CINTIA Gallego - 01/12/2025 3:47 PM EDTAssociated Problem(s): Hyperlipidemia High intensity statin January 2024 HDL 42, cholesterol [address] [facility] Work Phone: 1(258) 660-666903-17-2025 Evaluation + Plan note* Assessment & Plan Note - CINTIA Gallego - 01/12/2025 3:47 PM EDTAssociated Problem(s): ASHD (arteriosclerotic heart disease) March 09, 2023 Mid/proximal RCA PCI/[place] 4x15mm & 4x18mm Proximal diagonal PCI/[place] 2.5 x 18 mm LAD 10% Circumflex normal LVEF 65% February 2024 MPI ischemia, EF 88% Current daily activity at 4 METS without concerning symptoms [facility] Work Phone: 1(106) 544-950503-17-2025 Evaluation + Plan note* Assessment & Plan Note - CINTIA Gallego - 01/12/2025 3:46 PM EDTAssociated Problem(s): Palpitations Reports fairly daily episodes of hearing my heart thumping going into my ears No prior documented A-fib or arrhythmia. Was taken off of carvedilol January 2024 hospitalization due to bradycardia [facility] Work Phone: 1(894) 447-592003-17-2025 Evaluation + Plan note* Assessment & Plan Note - CINTIA Gallego - 01/12/2025 3:46 PM EDTAssociated Problem(s): Essential hypertension Optimal in office [facility] Work Phone: 1(404) 231-640303-17-2025 History of Present illness Narrative* CINTIA Gallego [...] heart disease) March 09, 2023 Mid/proximal RCA PCI/[place] 4x15mm & 4x18mm Proximal diagonal PCI/[place] 2.5 x 18 mm LAD 10% Circumflex [...] Echo (RODGERS, diastolic dysfunction) Holden Rosado MSN, INTERNET SALESPERSON-INTERPRETIVE PROGRAM COORDINATOR, PMHNP-BC [facility] [place], [place] Please excuse any errors in grammar or translation related to this dictation. Voice recognition software was utilized to prepare this document. [facility] Work Phone: 1(626) 834-747403-17-2025 Instructions* Patient Instructions* CINTIA Gallego - 01/12/2025 [...] Echo (RODGERS, diastolic dysfunction) [facility] Work Phone: 1(777) 403-186801-28-2025 History of Present illness Narrative* Reyna Esparza MD - 11/25/2024 2:00 PM EST Subjective Patient ID: Lashaun Joaquin is a 84 y.o. female who presents for Thyroid Nodule Pt reports she had a thyroid US after being found to be mildly hypothyroid. US shows an 11mm mixed thyroid nodule. FNA performed that was Johnson 1. No family H/O thyroid CA. No radiation exposure. Review of Systems All other systems reviewed and are negative. No family history on file. Active Ambulatory Problems Diagnosis Date Noted Dry eyes 04/28/2024 Epiretinal membrane (ERM) of left eye 04/28/2024 Blepharitis of upper and lower eyelids of both eyes 04/28/2024 Abnormal cardiovascular stress test 11/24/2024 Adrenal nodule ([facility]) 11/24/2024 Anemia 11/24/2024 ASHD (arteriosclerotic heart disease) ([facility]) 10/17/2023 Atrophic vaginitis 11/24/2024 BMI 33.0-33.9,adult 03/05/2024 Cervical spondylosis with radiculopathy 11/24/2024 Chronic bronchitis ([facility]) 11/24/2024 Chronic heart failure with preserved ejection fraction (HFpEF) ([facility]) 11/24/2024 Chronic obstructive pulmonary disease with (acute) exacerbation ([facility]) 11/24/2024 Chronic venous insufficiency 11/24/2024 COVID 10/17/2023 Elevated serum immunoglobulin free light chain level 11/24/2024 Essential hypertension ([facility]) 10/17/2023 Flash pulmonary edema ([facility]) 11/24/2024 Former smoker 10/17/2023 OMAR (generalized anxiety disorder) ([facility]) 11/24/2024 Gastroesophageal reflux disease with esophagitis without hemorrhage 11/24/2024 Heart failure ([facility]) 11/24/2024 Resolved Ambulatory Problems Diagnosis Date Noted No Resolved Ambulatory Problems Past Medical History: Diagnosis Date Arthritis Cataract Congestive heart failure (CHF) ([facility]) Coronary artery disease ([facility]) GERD (gastroesophageal reflux disease) Hypercholesteremia ([facility]) Hypertension ([facility]) Peripheral neuropathy Past Surgical History: Procedure Laterality [...] starting in late December documented in this encounterSaint [facility] [id number] Chief complaint+Reason for visit Narrative* Chief Complaint [...] 10:20am Thyroid nodule December 16, 2024 10:20am [facility] Work Phone: [phone] 240-511201-20-2025 Chief complaint+Reason for visit Narrative * Chief [...] knee pain January 22, 2025 9:5 1am [facility] Work Phone: 1([phone] 787-483601-20-2025 Evaluation note* Diagnosis Onset Date Resolution Status [...] 10:20am Thyroid nodule acute November 292024 10:20am [facility] Work Phone: [phone] 678-361401-20-2025 Evaluation note* Diagnosis Onset Date Resolution Status [...] 292024 10:20am Chronic kidney disease acute [facility] 2024 9:51am Nocturnal leg cramps acute Kofi [facility] 2024 9:51am Right knee pain acute December 9:51am [facility] Work Phone: 1([phone] 212-606212-11-2024 History of Present illness Narrative* Edinson Perry, [...] diastolic heart failure. She was hospitalized at [facility] we were not involved in this. Her [...] exam, discussion and plan. [facility] Work [facility]: 1(960) 654-853512-11-2024 Instructions* Patient Instructions* Racquel Olivera LPN - [...] Provided instructions on exercise. documented in this [facility] Work Phone: 1(798) 817-525711-14-2024 Evaluation note* Diagnosis Onset Date Resolution Status [...] Subclinical hypothyroidism acute September 11, 2024 10:16am [facility] Work Phone: 1([phone] 775-373411-14-2024 Evaluation note* Diagnosis Onset Date Resolution Status [...] 10:16am Thyroid nodule acute November 172024 9:45am [facility] Work Phone: 1(745) 490-747606-25-2024 Evaluation + Plan note* Assessment & Plan Note - CINTIA Gallego - 04/22/2024 11:58 AM EDTAssociated Problem(s): BMI 32.0-32.9,adult Reviewed the merits of healthy lifestyle choices on overall cardiovascular health. [facility] Work Phone: 1([phone]) 985-385706-25-2024 Evaluation + Plan note* Assessment & Plan Note - CINTIA Gallego - 04/22/2024 11:58 AM EDTAssociated Problem(s): Hyperlipidemia High intensity statin January 2024 HDL 42, cholesterol 158 [facility] Work Phone: 1([phone]) 105-518306-25-2024 Evaluation + Plan note* Assessment & Plan Note - CINTIA Gallego - 04/22/2024 11:58 AM EDTAssociated Problem(s): Essential hypertension Optimal in the office [facility] Work Phone: 1([phone]) 435-783706-25-2024 Evaluation + Plan note* Assessment & Plan Note - CINTIA Gallego - 04/22/2024 11:58 AM EDTAssociated Problem(s): ASHD (arteriosclerotic heart disease) March 09, 2023 Mid/proximal RCA PCI/[place] 4x15mm & 4x18mm Proximal diagonal PCI/[place] 2.5 x 18 mm LAD 10% Circumflex normal LVEF 65% February 2024 MPI ischemia, EF 88% Current daily activity at 4 METS without concerning symptoms [facility] Work Phone: [phone]) 739-149706-25-2024 Miscellaneous Notes* Assessment & Plan Note - [...] METS without concerning symptoms documented in this [facility] Work Phone: [phone]) 564-469306-24-2024 History of Present illness Narrative* CINTIA Gallego [...] heart disease) March 09, 2023 Mid/proximal RCA PCI/[place] 4x15mm & 4x18mm Proximal diagonal PCI/[place] 2.5 x 18 mm LAD 10% Circumflex [...] Dr. Perry 6 months Holden Rosado MSN, INTERNET SALESPERSON-INTERPRETIVE PROGRAM COORDINATOR, PMHNP-[facility] Please excuse any errors in grammar or translation related to this dictation. Voice recognition software was utilized to prepare this document. documented in this [facility] Work Phone: [phone] 114-343206-24-2024 Instructions* Patient Instructions* CINTIA Gallego - 04/21/2024 [...] Dr. Perry 6 months [facility] Work [facility]: [phone]) [phone] Evaluation + Plan note* Assessment & Plan Note - CINTIA Gallego - 03/06/2024 10:42 AM EDTAssociated Problem(s): BMI 32.0-32.9,adult Reviewed the merits of healthy lifestyle choices on overall cardiovascular health. [facility] Work Phone: [phone]) 224-421705-09-2024 Evaluation + Plan note* Assessment & Plan Note - CINTIA Gallego - 03/06/2024 10:42 AM EDTAssociated Problem(s): Hyperlipidemia High intensity statin January 2024 HDL 42, cholesterol [address] [facility] Work Phone: [phone] 740-947905-09-2024 Miscellaneous Notes* Assessment & Plan Note - [...] Circumflex normal LVEF 65% documented in this [facility] Work Phone: [phone]) 401-985005-09-2024 Evaluation + Plan note* Assessment & Plan Note - CINTIA Gallego - 03/06/2024 10:41 AM EDTAssociated Problem(s): Essential hypertension Optimal in office [facility] Work Phone: [phone]) 769-658205-09-2024 Evaluation + Plan note* Assessment & Plan Note - CINTIA Gallego - 03/06/2024 10:41 AM EDTAssociated Problem(s): ASHD (arteriosclerotic heart disease) March 09, 2023 Mid/proximal RCA PCI/[place] 4x15mm & 4x18mm Proximal diagonal PCI/[place] 2.5 x 18 mm LAD 10% Circumflex normal LVEF 65% [facility] Work Phone: 1([phone] 542-612505-08-2024 History of Present illness Narrative* CINTIA Gallego - 03/05/2024 11:30 AM EDT Chief Complaint I am just not feeling good Reason for Visit Patient presents to the office today for outpatient follow-up for hospital follow-up. Last evaluated in clinic by Dr. Perry September 2023. January 2024: Hospitalized at [facility] due to accelerated hypertension and bradycardia. [...] contact the office if new symptoms arise. 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 Voice recognition software was utilized to prepare this document. documented in this [facility] Work Phone: [phone] 625-950305-08-2024 Instructions* Patient Instructions* CINTIA Gallego - 03/05/2024 [...] contact the office if new symptoms arise. 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 Work Phone: [phone] Evaluation note* Encounter Date Diagnosis Assessment Notes Treatment Notes Treatment Clinical Notes Oct, Primary insomnia (ICD-10 - F51.01) [employer] Other 01-05-2024 Evaluation note* Encounter Date Diagnosis [...] in remission (ICD-10 - F17.211) Continue abstinence [employer] Other 12-05-2023 Evaluation note* Encounter Date Diagnosis [...] and feet daily for blisters and ulcerations. [employer] Other 11-29-2023 Evaluation note* Encounter Date Diagnosis Assessment Notes Treatment Notes Treatment Clinical Notes Aug, Chronic venous insufficiency (ICD-10 - I87.2) [employer] Other 11-24-2023 Evaluation note* Encounter Date Diagnosis Assessment Notes Treatment Notes Treatment Clinical Notes Aug, Subacute cough (ICD-10 - R05.2) Aug, Dyspnea on exertion (ICD-10 - R06.09) [employer] Other 11-20-2023 Evaluation note* Encounter Date Diagnosis Assessment Notes Treatment Notes Treatment Clinical Notes Aug, Chronic venous insufficiency (ICD-10 - I87.2) [employer] Other 11-16-2023 Evaluation note* Encounter Date Diagnosis Assessment Notes Treatment Notes Treatment Clinical Notes Aug, Chronic venous insufficiency (ICD-10 - I87.2) [employer] Other 11-14-2023 Evaluation note* Encounter Date Diagnosis [...] using EDEL as needed to mobilize secretions. [employer] Other 10-19-2023 Evaluation note* Encounter Date Diagnosis Assessment Notes Treatment Notes Treatment Clinical Notes Jul, Aphthous ulcer (ICD-10 - K12.0) [employer] Other 09-20-2023 Evaluation note* Encounter Date Diagnosis Assessment Notes Treatment Notes Treatment Clinical Notes Jun, Dysuria (ICD-10 - R30.0) [employer] Other 09-19-2023 Evaluation note* Encounter Date Diagnosis Assessment Notes Treatment Notes Treatment Clinical Notes Jun, Dysuria (ICD-10 - R30.0) [employer] Other 08-28-2023 Evaluation note* Encounter Date Diagnosis Assessment Notes Treatment Notes Treatment Clinical Notes May, Chronic venous insufficiency (ICD-10 - I87.2) [employer] Other 08-24-2023 Evaluation note* Encounter Date Diagnosis Assessment Notes Treatment Notes Treatment Clinical Notes May, Primary insomnia (ICD-10 - F51.01) [employer] Other 08-21-2023 Evaluation note* Encounter Date Diagnosis Assessment Notes Treatment Notes Treatment Clinical Notes May, Diastolic hypertension (ICD-10 - I10) [employer] Other 08-18-2023 Evaluation note* Encounter Date Diagnosis Assessment Notes Treatment Notes Treatment Clinical Notes May, Primary hypertension (ICD-10 - I10) [employer] Other 08-18-2023 Evaluation note* Encounter Date Diagnosis Assessment Notes Treatment Notes Treatment Clinical Notes May, Diastolic hypertension (ICD-10 - I10) [employer] Other 08-11-2023 Evaluation note* Encounter Date Diagnosis [...] and feet daily for blisters and ulcerations. [employer] Other 08-09-2023 Miscellaneous Notes* Telephone Encounter - [...] further discuss then. documented in this encounterOhiohealth [facility]08-07-2023 History of Present illness Narrative* Luis [...] shortness of breath and was hospitalized at [facility] and treated for suspected pneumonia. Apparently it was later felt she had heart disease, and cardiac catheterization revealed severe coronary artery disease. She dumont bsequently underwent stent placement at [facility]. Apparently her shortness of breath persisted, and [...] shortness of breath [facility]. Apparently it was later felt she had heart disease, and cardiac catheterization revealed severe coronary artery disease. She subsequently underwent stent placement at [facility]. April 2023 she developed severe shortness of breath and was hospitalized at [facility] 05/17/2023with CHF. She improved with diuresis but [...] CC: Dr. Perry documented in this encounterOhiohealth [facility]07-28-2023 Evaluation note* Encounter Date Diagnosis Assessment [...] dependence, cigarettes, in remission (ICD-10 - F17.211) [employer] Other 07-21-2023 Discharge summary Author Lj Ryan [facility] May 18, 2023 11:44am Note Date/Time May 18, 2023 11:4 4am [facility] [address] [place] [address] Discharge Summary Signed Patient: Lashaun Joaquin MR#: [id number] : 1940 Acct:[id number] Age/Sex: 82 / F Adm Date: 3 Loc: Room: [address] [place] [address]: Lj Ryan DO Copies to: [...] % (Auto) 73.6, Lymph % (Auto) 15.1, [place] % (Auto) 8.7, Eos % (Auto) 1.9, Baso % (Auto) 0.7, Nucleat RBC Rel Count 0.1, Neut # (Auto) 4.4, Lymph # (Auto) 0.9 L, [place] # (Auto) 0.5, Eos # (Auto) 0.1, [...] signed by Lj Ryan DO> 05/18/23 1144 [facility] Work Phone: 1([phone]) [phone] History and physical note Author Lj Ryan [facility] May 17, 2023 3:56pm Note Date/Time May 17, 2023 3:49 pm [facility] [address] [place] [address] Hospitalist H&P Signed Patient: Lashaun Joaquin MR#: [id number] : 1940 Acct:[id number] Age/Sex: 82 / F Adm Date: 3 Loc: Room: [address] [place] [address] Type: ADM INOo Attending Dr: Lj Ryan [...] negative unless noted below or in HPI [facility] Medical History (Updated 05/17/23 @ 15:50 by [...] % (Auto) 9.3 % (.) 05/17/23 10:25 [place]ab % (Auto) 5.5 % (.) 05/17/23 10:25 Eos % (Auto) 0.5 % (.) 05/17/23 10:25 Baso % (Auto) 0.5 % (.) 05/17/23 10:25 Nucleat RBC Rel Count 0.0 /100 WBC (0-0.5) 05/17/23 10:25 Neut # (Auto) 8.6 x10E3/uL (1.8-7.7) H 05/17/23 10:25 Lymph # (Auto) 1.0 x10E3/uL (1.00-4.8) 05/17/23 10:25 [place]ab # (Auto) 0.6 x10E3/uL (0.0-0.8) 05/17/23 10:25 [...] 1 Documented By: Lj Ryan DO 05/17/23 1543 Signed By: <Electronically signed by Lj Ryan DO> 05/17/23 6327 [facility] Work Phone: 1([phone]) 286-966607-19-2023 Evaluation note* Encounter Date Diagnosis Assessment Notes [...] [BMI ] 33.0-33.9, adult (ICD-10 - Z68.33) [employer] Other 07-12-2023 Evaluation note* Encounter Date Diagnosis [...] dependence, cigarettes, in remission (ICD-10 - F17.211) [employer] Other 06-29-2023 Evaluation note* Encounter Date Diagnosis Assessment Notes Treatment Notes Treatment Clinical Notes Mar, Paronychia of finger of right hand (ICD-10 - L03.011) [employer] Other 06-29-2023 Evaluation note* Encounter Date Diagnosis [...] healthy diet. Mar, Paresthesias (ICD-10 - R20.2) [employer] Other 06-21-2023 Evaluation note* Encounter Date Diagnosis [...] post PCI/stent placement. Continue for 12 months [employer] Other 06-21-2023 Evaluation note* Encounter Date Diagnosis Assessment Notes Treatment Notes Treatment Clinical Notes Mar, Chronic bronchitis, simple (ICD-10 - J41.0) [employer] Other 05-30-2023 Evaluation note* Encounter Date Diagnosis Assessment Notes Treatment Notes Treatment Clinical Notes February, Paresthesias (ICD-10 - R20.2) [employer] Other 05-18-2023 Evaluation note* Encounter Date Diagnosis [...] Titrate Gabapentin and monitor for fluid retention [employer] Other 05-08-2023 Evaluation note* Encounter Date Diagnosis Assessment Notes Treatment Notes Treatment Clinical Notes February, Primary hypertension (ICD-10 - I10) February, Chronic venous insufficiency (ICD-10 - I87.2) [employer] Other 04-19-2023 Evaluation note* Encounter Date Diagnosis [...] pain, change in appetite or bowel habits [employer] Other 04-16-2023 Evaluation note* Encounter Date Diagnosis [...] chronic diastolic heart failure (ICD-10 - I50.33) [employer] Other 04-07-2023 Evaluation note* Encounter Date Diagnosis [...] Diet and exercise with continued statin therapy. [employer] Other 02-23-2023 Evaluation note* Encounter Date Diagnosis Assessment Notes Treatment Notes Treatment Clinical Notes Nov, Primary insomnia (ICD-10 - F51.01) [employer] Other 02-16-2023 Evaluation note* Encounter Date Diagnosis [...] mammogram for breast cancer (ICD-10 - Z12.31) [employer] Other 02-06-2023 History of Present illness Narrative* [...] Luis Mckenzie MD documented in this encounterOhiohealth [facility]01-17-2023 Evaluation note* Encounter Date Diagnosis Assessment [...] or drinking prior to bedtime. Weight loss. [employer] Other 11-01-2022 Miscellaneous Notes* Telephone Encounter - [...] November MARBIN Freeman documented in this encounterOhiohealth [facility]10-31-2022 History of Present illness Narrative* Nancy [...] 2022 12:49 PM documented in this encounterOhiohealth Arthur [facility] Center08-01-2022 History of Present illness Narrative* Luis [...] PCP. Luis Mckenzie MD documented [facility] Narrative - Reported * LASHAUN JOAQUIN is being seen for a consultation for abnormal test(s) results. * 82-year-old female seen in cardiology consultation at the request of Dr. Natalio hathaway for recent episode of respiratory distress, what sounds like congestive heart failure associated with accelerated hypertension, was admitted to [facility] briefly, diuresed approximately 14 pounds with diuretics. [...] and proceed with heart cath this Sunday -[facility] [address] DO Work Phone: Evaluation note* Diagnosis Abnormal SPEP- Primary Other nonspecific findings on examination of blood Neuropathy - (NOS) 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 Lung nodules Other nonspecific abnormal finding of lung field documented in this encounter [facility] note* Diagnosis Abnormal SPEP- Primary Other nonspecific findings on examination of blood Neuropathy - (NOS) Lung nodules Other nonspecific abnormal finding of lung field documented in this encounter [facility] CenterEvaluchristiana hospital noteNo InformationNortPaymetric Other Evaluation noteNo assessment information available [facility] Work Phone: evaluation note* Diagnosis Onset Date Resolution Status Flash pulmonary edema acute Heart failure acute Hypertension acute Hypertensive emergency acute Hypoxia acute [facility] Work Phone: Evaluation note* Diagnosis Abnormal SPEP- Primary Other nonspecific findings on examination of blood Anemia, unspecified type Neuropathy - (NOS) Heart disease Heart disease, unspecified documented in this encounter [facility] CenterEvaluchristiana hospital note* Diagnosis Onset Date Resolution Status ASHD (arteriosclerotic heart disease) acute Chronic diastolic heart failure acute Chronic venous insufficiency acute Elevated cholesterol acute Essential hypertension acute OMAR (generalized anxiety disorder) acute Gastroesophageal reflux dise ase with esophagitis without hemorrhage acute 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 [facility] Work Phone: Evaluation note* Diagnosis [...] tube dysfunction acute Right otitis media acute [facility] Work Phone: Evaluation note* Diagnosis ASHD (arteriosclerotic heart disease)- Primary Coronary atherosclerosis of unspecified type of vessel, [place] or graft Essential hypertension Unspecified essential hypertension Mixed hyperlipidemia BMI 32.0-32.9,adult documented in this encounter [facility] Work Phone: Evaluation note* Diagnosis Onset [...] (generalized anxiety disorder) acute Subclinical hypothyroidism a [facility] Work Phone: Evaluation note* Diagnosis ASHD (arteriosclerotic heart disease) Coronary atherosclerosis of unspecified type of vessel, [place] or graft documented in this encounter [facility] Work Phone: Evaluation note* Diagnosis Onset Date Resolution Status Anemia acute ASHD (arteriosclerotic heart disease) acute Chronic diastolic heart failure acute Chronic venous insufficiency acute Essential hypertension acute OMAR (generalized anxiety disorder) acute Subclinical hypothyroidism a [facility] Work Phone: Evaluation note* Diagnosis 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 Lung nodules Other nonspecific abnormal finding of lung field documented in this encounter [facility] CenterEvaluation note* Diagnosis Onset Date Resolution Status [...] Subclinical hypothyroidism acute September 11, 2024 10:16am [facility] Work Phone: Evaluation note* Diagnosis Essential hypertension- Primary Unspecified essential hypertension ASHD (arteriosclerotic heart disease) Coronary atherosclerosis of unspecified type of vessel, [place] or graft Mixed hyperlipidemia BMI 32.0-32.9,adult documented in this encounter [facility] Work Phone: Evaluation note* Diagnosis ASHD (arteriosclerotic heart disease)- Primary Coronary atherosclerosis of unspecified type of vessel, [place] or graft Essential hypertension Unspecified essential hypertension Mixed hyperlipidemia BMI 32.0-32.9,adult Essential hypertension- Primary Unspecified essential hypertension ASHD (arteriosclerotic heart disease) Coronary atherosclerosis of unspecified type of vessel, [place] or graft Mixed hyperlipidemia BMI 32.0-32.9,adult ASHD (arteriosclerotic heart disease) Coronary atherosclerosis of unspecified type of vessel, [place] or graft Essential hypertension Unspecified essential hypertension BMI 33.0-33.9,adult Former smoker Personal history of tobacco use, presenting hazards to health S/P PTCA (percutaneous transluminal coronary angioplasty) Postsurgical percutaneous transluminal coronary angioplasty status Mixed hyperlipidemia Coronary arteriosclerosis after percutaneous transluminal coronary angioplasty (PTCA) documented in this encounter [facility] Work Phone: Evaluation note* Diagnosis Thyroid nodule (CMS/HCC)- Primary Nontoxic uninodular goiter [facility] Diagnosis ASHD (arteriosclerotic heart disease)- Primary Coronary atherosclerosis of unspecified type of vessel, [place] or graft Essential hypertension Unspecified essential hypertension Mixed hyperlipidemia BMI 32.0-32.9,adult Essential hypertension- Primary Unspecified essential hypertension ASHD (arteriosclerotic heart disease) Coronary atherosclerosis of unspecified type of vessel, [place] or graft Mixed hyperlipidemia BMI 32.0-32.9,adult BMI 33.0-33.9,adult- Primary Essential hypertension Unspecified essential hypertension Palpitations ASHD (arteriosclerotic heart disease) Coronary atherosclerosis of unspecified type of vessel, [place] or graft Mixed hyperlipidemia documented in this encounter [facility] Work Phone: Evaluation note* Diagnosis Nontoxic multinodular goiter (CMS/HCC)- Primary Nontoxic multinodular goiter [facility]* Diagnosis ASHD (arteriosclerotic heart disease)- Primary Coronary atherosclerosis of unspecified type of vessel, [place] or graft Essential hypertension Unspecified essential hypertension Mixed hyperlipidemia BMI 32.0-32.9,adult Essential hypertension- Primary Unspecified essential hypertension ASHD (arteriosclerotic heart disease) Coronary atherosclerosis of unspecified type of vessel, [place] or graft Mixed hyperlipidemia BMI 32.0-32.9,adult BMI 33.0-33.9,adult- Primary Essential hypertension Unspecified essential hypertension Palpitations ASHD (arteriosclerotic heart disease) Coronary atherosclerosis of unspecified type of vessel, [place] or graft Mixed hyperlipidemia Essential hypertension Unspecified essential hypertension Palpitations documented in this encounter [facility] Work Phone: Evaluation note* Diagnosis Abnormal SPEP- Primary Other nonspecific findings on examination of blood documented in this encounter [facility] CenterEvaluchrist[facility] hospital note* Diagnosis Abnormal SPEP- Primary Other nonspecific findings on examination of blood Primary hypertension Unspecified essential hypertension Hyperlipidemia, unspecified hyperlipidemia type Heart disease Heart disease, unspecified Edema, unspecified type 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 Anemia in other chronic diseases classified elsewhere documented in this encounter [facility] general Narrative - Reported* Type Description Date [...] Colonoscopy 2013 Hospitalization History see surgical history [employer] Other History general Narrative - Reported* Type [...] diagonal br Hospitalization History see surgical history [employer] Other Hospital Discharge instructions Additional Instructions Please [...] ENT Time Frame: 11/19/24, Location: None Selected [facility] Work Phone: Reason for referral (narrative)* Consultation (Routine) - Authorized Specialty Diagnoses / Procedures Referred By Contac t Referred To Contact Cardiology Diagnoses ASHD (arteriosclerotic heart disease) Procedures Follow Up In Cardiology Holden Rosado APRN-CNP [address] [place] [address] [address], [address] [id number] Referral ID Status Reason Start Date Expiration Date V isits Requested Visits Authorized [id number] Authorized 03/05/2024 03/05/2025 1 1 * Cardiac Stress Testing (Routine) - Pending Review Specialty Diagnoses / Procedures Referred By Contac t Referred To Contact Radiology Diagnoses ASHD (arteriosclerotic heart disease) Procedures Nuclear Stress Test CHG MYOCARDIAL SPECT MULTIPLE STUDIES Holden Rosado APRN-CNP [address] [place] [address], [address] [address] Referral ID Status Reason Start Date Expiration Date V isits Requested Visits Authorized [id number] Pending Review 03/05/2024 03/05/[address] [facility] Work Phone: Reason for referral (narrative)* Consultation (Routine) - Authorized Specialty Diagnoses / Procedures Referred By Contac t Referred To Contact Cardiology Diagnoses ASHD (arteriosclerotic heart disease) Procedures Follow Up In Cardiology Holden Rosado APRN-CNP [address] [place] [address] 2, [place] [id number] Referral ID Status Reason Start Date Expiration Date V isits Requested Visits Authorized [id number] Authorized 04/21/2024 04/21/[address] [facility] Work Phone: Reason for referral (narrative)No reason for referral [facility] Reason for visit Narrative* CV Imaging (Routine) - Authorized Specialty Diagnoses / Procedures Referred By Contac t Referred To Contact Cardiology Diagnoses Essential hypertension Palpitations Procedures Transthoracic Echo Complete OK ECHO TTHRC R-T 2D W/WOM-MODE COMPL SPEC&COLR D Holden Rosado, INTERNET SALESPERSON-INTERPRETIVE PROGRAM COORDINATOR [address] [facility] [address] [place] [address] Phone: tel: fax: Referral ID Status Reason Start Date Expiration Date Visits Requested Visits Authorized [id number] Authorized Perform Procedure 01/12/2025 01/12/[address] [facility] Work Phone: Advance Directives Documents on File Type Date Recorded Patient Heel Lining Paster Expl anation Advance Directive(s) 08/01/2021 12:55 PM A dvance Directives Documents on File Type Date Recorded Patient Heel Lining Paster Expl anation Advance Directive(s) 08/01/2021 12:55 PM [...] COMPUTED TOMOGRAPHY THORAX W/CONTRAST Luis Mckenzie MD [address] [place] [address] [address] [place] [address] Ct Imaging Referral ID Status Reason Start Date Expiration Date Visits Requested Visits Authorized [id number] Authorized Auto-Generat ed Referral 05/29/2022 06/28/2023 1 1 Specialty Diagnoses / Procedures Referred By Contac t Referred To Contact CT IMAGING Diagnoses Disorder of adrenal gland (HCC) Procedures CT ABD/PEL W IVCON CT ABD & PELVIS W/CONTRAST Luis Mckenzie MD [address] [place] [address] [place] [address] Ct Imaging Referral ID Status Reason Start Date Expiration Date Visits Requested Visits Authorized [id number] Authorized Auto-Generat ed Referral 05/29/2022 06/28/2023 1 1 Specialty Diagnoses / Procedures Referred By Contac t Referred To Contact Radiology Diagnoses ASHD (arteriosclerotic heart disease) Procedures Nuclear Stress Test CHG MYOCARDIAL SPECT MULTIPLE STUDIES Alonzo Holden Petra, INTERNET SALESPERSON-INTERPRETIVE PROGRAM COORDINATOR [address] [facility] [address] [place] [address] Referral ID Status Reason Start Date Expiration Date V isits Requested Visits Authorized [id number] Pending Review 03/05/2024 03/05/2025 5 5 Specialty Diagnoses / Procedures Referred By Contac t Referred To Contact CT IMAGING Diagnoses Lung nodules Procedures CT CHEST W IVCON DIAGNOSTIC COMPUTED TOMOGRAPHY THORAX W/CONTRAST Luis Mckenzie MD [address] [place] [address] [address] [place] [address] [place] [id number] Referral ID Status Reason Start Date Expiration Date V isits Requested Visits Authorized [id number] Closed Auto-Generate d Referral 05/29/2022 06/28/2023 1 1 Specialty Diagnoses / Procedures Referred By Contac t Referred To Contact CT IMAGING Diagnoses Disorder of adrenal gland (HCC) Procedures CT ABD/PEL W IVCON CT ABD & PELVIS W/CONTRAST Luis Mckenzie MD [address] [place] [address] [address] [place] [address] [place] [id number] Referral ID Status Reason Start Date Expiration Date V isits Requested Visits Authorized [id number] Closed Auto-Generate d Referral 05/29/2022 06/28/2023 1 [...] neoplasm of lung Unknown Exposure to Agent [place] Unknown brother Malignant neoplasm of colon Unknown [...] neoplasm of lung Unknown Exposure to Agent [place] Unknown brother Malignant neoplasm of colon Unknown [...] neoplasm of lung Unknown Exposure to Agent [place] Unknown brother Malignant neoplasm of colon Unknown [...] 23am Screening mammogram for breast cancer [facility] 2024 9:23am Subclinical hypothyroidism June 19, 2025 [...] 2025 9: 23am ASHD (arteriosclerotic heart disease) [facility] 2024 9:23am Chronic bronchitis June 19, [...] 9: 23am Screening mammogram for breast cancer [facility] 2024 9:23am Subclinical hypothyroidism June 19, [...] 2025 9: 23am ASHD (arteriosclerotic heart disease) [facility] 2024 9:23am Chronic bronchitis June 19, [...] 9: 23am Screening mammogram for breast cancer [facility] 2024 9:23am Subclinical hypothyroidism June 19, [...] prosecute any alcohol or drug abuse patient.[facility] CenterIn the event this information is protected by the Federal Confidentiality of Alcohol and Drug Abuse Patient Records regulations: The Federal rules restrict any use of the information to criminally investigate or prosecute any alcohol or drug abuse patient.[facility] CenterIn the event this information is protected by the Federal Confidentiality of Alcohol and Drug Abuse Patient Records regulations: The Federal rules restrict any use of the information to criminally investigate or prosecute any alcohol or drug abuse patient.[facility] CenterIn the event this information is protected by the Federal Confidentiality of Alcohol and Drug Abuse Patient Records regulations: The Federal rules restrict any use of the information to criminally investigate or prosecute any alcohol or drug abuse patient.[facility] CenterIn the event this information is protected by the Federal Confidentiality of Alcohol and Drug Abuse Patient Records regulations: The Federal rules restrict any use of the information to criminally investigate or prosecute any alcohol or drug abuse patient.[facility] CenterIn the event this information is protected by the Federal Confidentiality of Alcohol and Drug Abuse Patient Records regulations: The Federal rules restrict any use of the information to criminally investigate or prosecute any alcohol or drug abuse patient.[facility] CenterIn the event this information is protected by the Federal Confidentiality of Alcohol and Drug Abuse Patient Records regulations: The Federal rules restrict any use of the information to criminally investigate or prosecute any alcohol or drug abuse patient.[facility] CenterIn the event this information is protected by the Federal Confidentiality of Alcohol and Drug Abuse Patient Records regulations: The Federal rules restrict any use of the information to criminally investigate or prosecute any alcohol or drug abuse patient.[facility] CenterIn the event this information is protected by the Federal Confidentiality of Alcohol and Drug Abuse Patient Records regulations: The Federal rules restrict any use of the information to criminally investigate or prosecute any alcohol or drug abuse patient.[facility] CenterIn the event this information is protected by the Federal Confidentiality of Alcohol and Drug Abuse Patient Records regulations: The Federal rules restrict any use of the information to criminally investigate or prosecute any alcohol or drug abuse patient.[facility] CenterIn the event this information is protected by the Federal Confidentiality of Alcohol and Drug Abuse Patient Records regulations: The Federal rules restrict any use of the information to criminally investigate or prosecute any alcohol or drug abuse patient.[facility] Reason for Visit (unrecogniz ed section and content) Reason Comments Lab Orders Reason Comments abnormal spep Reason Comments Results Reason Comments Abnormal SPEP Reason Comments Follow-up bradycardia Specialty Diagnoses / Procedures Referred By Contac t Referred To Contact Radiology Diagnoses ASHD (arteriosclerotic heart disease) Procedures Nuclear Stress Test CHG MYOCARDIAL SPECT MULTIPLE STUDIES Holden Rosado, INTERNET SALESPERSON-INTERPRETIVE PROGRAM COORDINATOR [address] [place] [address], [address] [address] Referral ID Status Reason Start Date Expiration Date V isits Requested Visits Authorized [id number] Pending Review 03/05/2024 03/05/2025 5 [address] Specialty Diagnoses / Procedures Referred By Contac t Referred To Contact CT IMAGING Diagnoses Lung nodules Procedures CT CHEST W IVCON DIAGNOSTIC COMPUTED TOMOGRAPHY THORAX W/CONTRAST Luis Mckenzie MD [address] [place] [address] [place] [address] Ct Imaging [id number] Referral ID Status Reason Start Date Expiration Date V isits Requested Visits Authorized [id number] Closed Auto-Generate d Referral 05/29/2022 06/28/2023 1 1 Reason Comments Follow-up Test resultx Specialty Diagnoses / Procedures Referred By Contac t Referred To Contact Cardiology Diagnoses ASHD (arteriosclerotic heart disease) Procedures Follow Up In Cardiology Edinson Perry DO [address] [place] [address], [address] [address] Holden Rosado INTERNET SALESPERSON-INTERPRETIVE PROGRAM COORDINATOR [address] [facility] [address], [address] [address] Referral ID Status Reason Start Date Expiration Date V isits Requested Visits Authorized [id number] Authorized 10/17/2023 10/16/2024 1 1 Reason Comments Follow-up 6 month Specialty Diagnoses / Procedures Referred By Contac t Referred To Contact Cardiology Diagnoses ASHD (arteriosclerotic heart disease) Procedures Follow Up In Cardiology Holden Rosado, INTERNET SALESPERSON-INTERPRETIVE PROGRAM COORDINATOR [address] [facility] [address], [address] [address] Phone: tel: fax: Referral ID Status Reason Start Date Expiration Date V isits Requested Visits Authorized [id number] Authorized 04/21/2024 04/21/2025 1 1 Reason Onset Date Comments Med Refill 10/09/2024 Reason Comments Thyroid Nodule Specialty Diagnoses / Procedures Referred By Contac t Referred To Contact Otolaryngology Diagnoses Nontoxic single thyroid nodule (CMS/HCC) Procedures OK UNLISTED EVALUATION AND MANAGEMENT SERVICE Nathan Hathaway MD [address] [place] [address] Phone: tel: Reyna Esparza MD [address] [facility] [address] [place] [address] Phone: tel: fax: Referral ID Status Reason Start Date Expiration Date Visits Re quested Visits Authorized [id number] Closed 11/19/2024 05/18/2025 1 1 Reason Comments Follow-up 6 months Follow up f or Coronary Artery Disease Specialty Diagnoses / Procedures Referred By Contac t Referred To Contact Cardiology Diagnoses Essential hypertension Procedures Follow Up In Cardiology Edinson Perry DO [address] [facility] [address], [address] [address] Phone: tel: fax: Holden Rosado, INTERNET SALESPERSON-INTERPRETIVE PROGRAM COORDINATOR [address] [facility] [address], [address] [address] Phone: tel: fax: Referral ID Status Reason Start Date Expiration Date V isits Requested Visits Authorized [id number] Authorized 10/08/2024 10/08/2025 1 1 Reason Comments [...] 2024 Team Status: Active Member Role Status oHrtencia Hathaway DO Primary Care Provider Active Start: December 18, 2023 URIEL Sunshine Attending Provider Active Start : December 18, 2023 Team Status: Inactive Member Role Status Hortencia Hathaway DO Primary Care Provide r, Attending Provider Active Start: February 01, 2024 End: February 01, 2024 Public Transit Specialist Relationship Specialty Start Date End Date Nathan Hathaway DO PCP - General Internal Medicine 01/31/12 Public Transit Specialist Relationship Specialty Start Date End Date Nathan Hathaway DO PCP - General Internal Medicine 01/31/12 Public Transit Specialist Relationship Specialty Start Date End Date Nathan Hathaway DO PCP - General Internal Medicine 01/31/12 Public Transit Specialist Relationship Specialty Start Date End Date Nathan [...] , DO Admit Provider, Attending Provider Active Public Transit Specialist Relationship Specialty Start Date End Date Nathan Hathaway DO PCP - General Internal Medicine 01/31/12 Public Transit Specialist Relationship Specialty Start Date End Date Nathan Hathaway DO PCP - General Internal Medicine 01/31/12 Team Status: Active Member Role Status Dates Nathan Hathaway DO Primary Care Provide r, Attending Provider Active Start: February 02, 2024 Team Status: Inactive Member Role Status Dates Nathan Hathaway DO Primary Care Provider Active Start: February 13, 2024 End: February 13, 2024 Deja Pope APRN SUPERVISING FILM OR VIDEOTAPE EDITOR-C Attending Provider Act babar Start: February 13, 2024 End: February 13, 2024 Public Transit Specialist Relationship Specialty Start Date End Date Nathan [...] February 27, 2024 End: February 27, 2024 Public Transit Specialist Relationship Specialty Start Date End Date Nathan Hathaway DO PCP - General Internal Medicine 10/03/23 Public Transit Specialist Relationship Specialty Start Date End Date Nathan Hathaway DO PCP - General Internal Medicine 10/03/23 Public Transit Specialist Relationship Specialty Start Date End Date Nathan Hathaway DO PCP - General Internal Medicine 10/03/23 Public Transit Specialist Relationship Specialty Start Date End Date Nathan Hathaway DO PCP - General Internal Medicine 10/03/23 Public Transit Specialist Relationship Specialty Start Date End Date Nathan Hathaway DO PCP - General Internal Medicine 01/31/12 Public Transit Specialist Relationship Specialty Start Date End Date Nathan Hathaway DO PCP - General Internal Medicine 10/03/23 Public Transit Specialist Relationship Specialty Start Date End Date Nathan Hathaway DO PCP - General Internal Medicine 10/03/23 Public Transit Specialist Relationship Specialty Start Date End Date Nathan Hathaway MD [address] [facility] [place] [address] PCP - External PCP Internal Medicine 06/29/23 Public Transit Specialist Relationship Specialty Start Date End Date Nathan Hathaway MD [address] [facility] [place] [address] PCP - External PCP Internal Medicine 06/29/23 Public Transit Specialist Relationship Specialty Start Date End Date Nathan Hathaway MD [address] [facility] [place] [address] PCP - External PCP Internal Medicine 06/29/23 Public Transit Specialist Relationship Specialty Start Date End Date Nathan Hathaway DO PCP - General Internal Medicine 10/03/23 Team Status: Inactive Member Role Status Dates Nathan Hathaway DO Primary Care Provide r, Attending Provider Active Start: January 22, 2025 End: January 22, 2025 Public Transit Specialist Relationship Specialty Start Date End Date Nathan Hathaway MD [address] [facility] [place] [address] PCP - General Internal Medicine 02/10/25 Public Transit Specialist Relationship Specialty Start Date End Date Nathan Hathaway DO [address] [facility] [place] [address] PCP - General Internal Medicine 02/10/25 Public Transit Specialist Relationship Specialty Start Date End Date Nathan Hathaway DO [address] [facility] [place] [address] PCP - General Internal Medicine 02/10/25 Public Transit Specialist Relationship Specialty Start Date End Date Nathan Hathaway DO [address] [place] [address] PCP - General Internal Medicine 03/09/25 Team [...] June 19, 2025 End: June 19, 2025 Public Transit Specialist Relationship Specialty Start Date End Date Nathan Hathaway DO PCP - General Internal Medicine 01/31/12 Public Transit Specialist Relationship Specialty Start Date End Date Nathan Hathaway DO PCP - General Internal Medicine 01/31/12 Public Transit Specialist Relationship Specialty Start Date End Date Nathan [...] Start: July 08, 2025 Fanny Bedoya APRN SUPERVISING FILM OR VIDEOTAPE EDITOR-C Attending Provider Active Start: July 08, 2025 [...] and content) DATE CREATED AUTHOR 03/08/2023 [facility] DATE CREATED AUTHOR AUTHOR'S ORGANIZ ATION 03/09/2023 [facility] DATE CREATED AUTHOR AUTHOR'S ORGANIZ ATION 03/11/[address] [facility] DATE CREATED AUTHOR AUTHOR'S ORGANIZ ATION 02/14/2025 [facility] DATE CREATED AUTHOR AUTHOR'S ORGANIZ ATION 02/26/2025 [facility] DATE CREATED AUTHOR AUTHOR'S ORGANIZ ATION 03/26/2025 [facility] DATE CREATED AUTHOR AUTHOR'S ORGANIZ ATION 03/26/2025 [facility] DATE CREATED AUTHOR AUTHOR'S ORGANIZ ATION 07/19/2025 [facility] Goals (unrecognized section and content) Goals [...] BE BASED ON THE PRIMARY CLINICAL RECORDS. [facility]. provides no warranty or guarantee of the accuracy or completeness of information in this document.
[2025-08-10] MEDS: POTASSIUM CHLORIDE 10 MEQ ER TABLET PO (10:12)
[2025-08-10] MEDS: ALPRAZOLAM 0.25 MG TABLET PO ×2 (10:12→21:20)
[2025-08-10] MEDS: GABAPENTIN 100 MG CAPSULE PO ×2 (10:12→21:20)
[2025-08-10] MEDS: CLOPIDOGREL BISULFATE 75 MG TABLET PO (10:12)
--- NOTE | 2025-08-10 10:45 | CM.NOTE ---
Rounds made with Dr. Fields, discussed with pt diagnosis and plan of care. No discharge today, pt inpatient status.
--- NOTE | 2025-08-10 13:15 | PM.HP ---
HPI H&P: HPI History of Present Illness Chief complaint: SHORTNESS OF BREATH SOB CHF Narrative: Patient is an 84 year old female with medical hx of CAD s/p PCI on Plavix, follows with anode builder Dr. Perry and her PCP. patient presented to ER due to worsening SOB over the past couple of days, has gotten more severe overnight. She woke up and could not catch her breath, she could not wait until see PCP office for which she came here for further evaluation. Denies fevers, cough, denies chest pain or abd pain. She does report that she has She has chronic lower extremity pain and is currently seeing Dr. Coyle at [facility] for a vascular work up. She states she was taken off of her furosemide and placed on Bumex per anode builder, but gained 3 pounds recently and talked to her pharmacist who thought it would be okay if she went back on her Lasix. Patient states she felt better while she was on lasix. Here in ER, Given breathing treatments initially then cardiac workup done. Trop WNL. BNP elevated with CXR showing bilateral vascular congestion. Afebrile here, no leukocytosis, hypertensive on arrival here, noted with desaturation down to 88% on RA. Normally does not wear oxygen. Decision was made to admit here for further evaluation and management. Quality: Safe Use of Opioids Is the patient undergoing opioid medication assisted treatment that includes methadone, buprenorphine, and/or naltrexone: No Opioid HPI Opioid Management Most Recent Pain and Opioid Data: Last Pain Scale 0 02/18/24, 08:28 Last Pain Intensity 0 24, 08:28 Last Pain Assessment Today, 10:00 Last ORT Total Score 0 Today, 09:51 Last ORT Risk Category Low Risk Today, 09:51 Review of Systems ROS Status of ROS 10 or more systems reviewed and unremarkable except as noted in history and below [facility] Medical History Chronic heart failure with preserved ejection fraction (HFpEF) ?I50.32 - Chronic diastolic (congestive) heart failure (ICD-10) Peripheral neuropathy ?G62.9 - Polyneuropathy, unspecified (ICD-10) Peripheral edema ?R60.0 - Localized edema (ICD-10) HTN (hypertension) ?I10 - Essential (primary) hypertension (ICD-10) GERD (gastroesophageal reflux disease) ?K21.9 - Gastro-esophageal reflux disease without esophagitis (ICD-10) Pneumonia due to COVID-19 virus ?U07.1 - COVID-19 (ICD-10) ?J12.82 - Pneumonia due to coronavirus disease 2019 (ICD-10) COVID-19 ?U07.1 - COVID-19 (ICD-10) Obesity ?E66.9 - Obesity, unspecified (ICD-10) Coronary artery disease ?I25.10 - Atherosclerotic heart disease of [place] coronary artery without angina pectoris (ICD-10) Surgical History H/O: hysterectomy ?Z90.710 - Acquired absence of both cervix and uterus (ICD-10) Stented coronary artery ?Z95.5 - Presence of coronary angioplasty implant and graft (ICD-10) Family History Brother Family history of diabetes mellitus Family history of cancer Sister Family history of cancer Social History Within the past year, how often did you have a drink containing alcohol: never Within the past year, how often did you have six or more drinks on one occasion: never Score interpretation: A score less than 3 is consistent with normal alcohol consumption. 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 [employer] Known occupational exposures/hazards: No Highest level of school completed/degree received: 11th grade Do you want help with school or training: No Are you now , , , , never or living with a partner: In a typical week, how many times do you talk on the telephone with family, friends, or neighbors: 3 or more times per week How often do you get together with friends or relatives: twice per week How often do you attend mandaen or taoist services: 4 or more times per year Do you belong to any clubs or organizations such as mandaen groups unions, fraternal or athletic groups, or school groups: yes Total score: 4 Score interpretation: A score of greater than or equal to 2 indicates the lowest level of social isolation. Little interest or pleasure in doing things: not at all Feeling down, depressed, or hopeless: not at all Feel stressed/tense/nervous/anxious/difficulty sleeping: only a little Due to disability, difficulty making decisions: No Do you think of yourself as: straight/heterosexual Gender Identity: female Meds Home Medications and Allergies Home Medications ?Medication ?Instructions ?Recorded ?Confirmed ?Type alprazolam 0.25 mg tablet 0.25 mg PO BID PRN anxiety 04/11/23 08/10/25 History gabapentin 100 mg capsule 100 mg PO Q12H 04/11/23 08/10/25 History temazepam 15 mg capsule (Restoril) 15 mg PO .hs PRN sleep 04/11/23 08/10/25 History clopidogrel 75 mg tablet 75 mg PO DAILY 07/27/23 08/10/25 History potassium chloride 10 mEq 10 meq PO DAILY 02/18/24 08/10/25 History tablet,extended release rosuvastatin 40 mg tablet 40 mg PO DAILY 02/18/24 08/10/25 History nifedipine 30 mg tablet,extended 30 mg PO Q24H 30 days #30 tabs 02/20/24 08/10/25 Rx release 24 hr bumetanide 1 mg tablet 1 mg PO BID 08/10/25 08/10/25 History pantoprazole 40 mg tablet,delayed 40 mg PO .QD 08/10/25 08/10/25 History release umeclidinium 62.5 mcg-vilanterol 1 inh inhalation Q24H 08/10/25 08/10/25 History 25 mcg/actuation powdr for inhalation (Anoro Ellipta) valsartan 80 mg tablet 80 mg PO .QD 08/10/25 08/10/25 History Allergies Allergy/AdvReac Type Severity Reaction Status Date / Time azithromycin Allergy Severe Verified 09/28/23 14:15 amlodipine Allergy Verified 07/27/23 02:13 doxycycline Allergy Verified 07/27/23 02:13 duloxetine (From Cymbalta) Allergy Verified 07/27/23 02:13 ondansetron (From Zofran) Allergy Verified 07/27/23 02:13 sulfamethoxazole (From Allergy Verified 07/27/23 02:13 Bactrim) tetanus and diphtheria Allergy Verified 09/29/23 02:13 toxoids trimethoprim (From Bactrim) Allergy Verified 07/27/23 02:13 codeine AdvReac Severe Anxiety Verified 09/25/23 11:07 Exam Narrative Exam Narrative: General: Awake, alert, oriented, no acute distress, comfortable in bed HEENT: Normocephalic atraumatic, mucous membranes are moist and pink, eyes are clear, normal conjunctiva Neck: Supple, no meningeal signs, no JVD Chest: Faint bilateral expiratory wheezing noted, bibasilar crackles noted. CVS: Regular rate and rhythm S1-S2, no murmurs rubs or gallops, pulses are brisk and equal bilaterally ABD: Soft, nondistended, nontender, no rebound guarding or rigidity, bowel sounds are normal, no pulsatile masses appreciated Extremities: Moving all extremities, 1+ edema of the lower extremities bilaterally with chronic skin changes from the knees to the feet bilaterally, there is no calf swelling or tenderness appreciated Skin: Normal in appearance with chronic appearing hypertrophic color changes in the lower extremities bilaterally Neuro: No focal deficits Constitutional Vital Signs, click to edit/add: Last Vital Signs Temp 98 F 08/10/25 12:36 Pulse 56 L 08/10/25 12:36 Resp 18 08/10/25 12:36 BP 188/68 H 08/10/25 12:36 Pulse Ox 97 08/10/25 12:36 O2 Del Method Nasal Cannula 08/10/25 12:36 O2 Flow Rate 2 08/10/25 12:36 Results Labs Labs: Short CBC 08/10/25 Range/Units 06:15 WBC 6.2 (4.0-11.0) 10^3/uL Hgb 8.7 L (12.0-16.0) g/dL Hct 25.9 L (36.0-48.0) % Plt Count 274 (150-450) 10^3/uL BMP 08/10/25 06:15 Sodium 141 Potassium 3.8 Chloride 102 Carbon Dioxide 26.6 BUN 34.0 H Creatinine 1.36 H Glucose 116 H Calcium 8.6 Liver Function 08/10/25 Range/Units 06:15 Total Bilirubin 0.4 (0.2-1.0) mg/dL AST 20 (15-37) U/L ALT 19 (14-59) U/L Alkaline Phosphatase 46 (46-116) U/L Albumin 3.1 L (3.4-5.0) g/dL Urine 08/10/25 Range/Units 08:28 Urine Color Lt. yellow (YELLOW) Urine Clarity Clear (CLEAR) Urine pH 6.0 (5.0-9.0) Ur Specific [place] 1.010 (1.005-1.025) Urine Protein 100 A (NEG/TRACE) mg/dL Urine Glucose (UA) Negative (NEGATIVE) mg/dL Assessment and Plan Assessment and Plan (1) Acute hypoxic respiratory failure: (2) Acute on chronic diastolic ACC/AHA stage C congestive heart failure: (3) Hypertensive urgency: Plan Acute hypoxic respiratory failure due to acute on chronic diastolic CHF exacerbation Uncontrolled HTN- HTN urgency CKD stage 3 -Most recent Echo reviewed -Discussed with pt and daughter at bedside regarding meds changes. Pt used to be on Lasix worked better according to her, now on Bumex and does not seem to help -Started on IV Lasix 40 mg BID here, will transition to oral Lasix on discharge -Nitro patch as directed -Increase Nifedipine to 60 mg daily for better BP control. Will need to keep BP log at home and follow as outpatient for BP control. -Monitor Kidney function while on Diuretics -Daughter raised concern for hyperkalemia in the past that pt had. K so far WNL. continue to monitor for now Might not do supplements KCL on discharge -Home meds reviewed and resumed as appropriate -Will hold valsartan for now while on IV diuretics for now, will resume on discharge -Repeat labs in am -Wean off oxygen as tolerated -Will need walk study on discharge Discussed with pt, daughter and at bedside, all questions answered, they are in agreement and comfortable with discharge plan at this time.
[2025-08-10] MEDS: HYDRALAZINE HCL 20 MG/ML VIAL 10 MG IVP (13:44)
[2025-08-10] MEDS: NITROGLYCERIN 0.1 MG/HR PATCH.TD24 1 PATCH TD (13:44)
[2025-08-10] MEDS: HEPARIN SODIUM (PORCINE) 5,000 UNIT/ML VIAL 5000 UNIT SUBQ ×2 (15:20→21:20)
--- NOTE | 2025-08-10 15:32 | SWNOTE1 ---
Important Message from Medicare reviewed and discussed with patient. Pt. verbalized understanding and signed the form. Original given to patient and copy placed in patient?s chart.
--- NOTE | 2025-08-10 15:33 | SWNOTE1 ---
SW met with pt to discuss dc needs. Pt lives at home with her . Pt is independent and has no services coming in. Pt has no anticipated discharge needs at this time. SW to follow as needed.
[2025-08-10] MEDS: FUROSEMIDE 20 MG/2 ML VIAL 40 MG IVP (16:55)
[2025-08-10] MEDS: ACETAMINOPHEN 325 MG TABLET 650 MG PO (17:05)
[2025-08-10] MEDS: CALCIUM CARBONATE 500 MG (200MG ELEMENTAL) TAB CHEW PO (21:19)
[2025-08-10] MEDS: TEMAZEPAM 15 MG CAPSULE PO (21:20)
[2025-08-11] VITALS (11 sets, daily range): BP systolic 137–163; BP diastolic 54–74; PULSE 63–73; TEMP 36.4–36.6; O2SAT 90–96
[2025-08-11] MEDS: PANTOPRAZOLE SODIUM 40 MG TABLET.DR PO (05:47)
[2025-08-11] MEDS: FUROSEMIDE 20 MG/2 ML VIAL 40 MG IVP (05:47)
[2025-08-11] MEDS: HEPARIN SODIUM (PORCINE) 5,000 UNIT/ML VIAL 5000 UNIT SUBQ (05:48)
[2025-08-11 05:58] LABS: Hemoglobin 7.5 g/dL (12.0-16.0); Immature Granulocytes Abs Auto 0.02 10^3/uL (0.00-0.03); Immature Granulocytes Pct Auto 0.4 % (0.0-0.5); Lymphocytes Absolute Auto 0.8 10^3/uL (1.2-3.8); Mean Corpuscular HGB Conc 33.8 g/dL (29.9-35.2); Mean Corpuscular Hemoglobin 29.0 pg (26.7-34.0); Mean Corpuscular Volume 85.7 fL (81.0-99.0); Platelet Count 236 10^3/uL (150-450); Red Blood Count 2.59 10^6/uL (4.20-5.40); White Blood Count 5.0 10^3/uL (4.0-11.0)
[2025-08-11 06:00] LABS: Anion Gap 13.0; Blood Urea Nitrogen 31.0 mg/dL (7.0-18.0); Calcium 8.5 mg/dL (8.5-10.1); Carbon Dioxide 26.9 mmol/L (21.0-32.0); Chloride 107 mmol/L (98-107); Estimated GFR (African America 45 (>=60 mL/min/1.73m^2); Estimated GFR (Non-African Ame 37 (>=60 mL/min/1.73m^2); Glucose 91 mg/dL (74-106); Potassium 3.9 mmol/L (3.5-5.1); Sodium 143 mmol/L (136-145)
[2025-08-11 06:11] LABS: Hematocrit 22.2 % (36.0-48.0)
[2025-08-11] MEDS: CLOPIDOGREL BISULFATE 75 MG TABLET PO (08:37)
[2025-08-11] MEDS: GABAPENTIN 100 MG CAPSULE PO (08:37)
[2025-08-11] MEDS: POTASSIUM CHLORIDE 10 MEQ ER TABLET PO (08:37)
[2025-08-11] MEDS: ALPRAZOLAM 0.25 MG TABLET PO (08:38)
--- NOTE | 2025-08-11 09:30 | CM.NOTE ---
Rounds made with Dr. Fields, pt will discharge to home today. Pt will f/u with Dr. Bateman. Pt will have walk study prior to discharge.
[2025-08-11 10:17] LABS: Hemoglobin 8.0 g/dL (12.0-16.0)
[2025-08-11 10:25] LABS: Hematocrit 23.7 % (36.0-48.0)
--- NOTE | 2025-08-11 11:39 | CM.NOTE ---
Pt does not qualify for home oxygen. No discharge needs identified.
--- NOTE | 2025-08-11 11:49 | P.DS_ITS ---
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 Perry and her PCP. patient presented to ER due to worsening SOB over the past couple of days, has gotten more severe overnight. She woke up and could not catch her breath, she could not wait until see PCP office for which she came here for further evaluation. Denies fevers, cough, denies chest pain or abd pain. She does report that she has She has chronic lower extremity pain and is currently seeing Dr. Coyle at [facility] for a vascular work up. She states she was taken off of her furosemide and placed on Bumex per steel rule die maker, but gained 3 pounds recently and talked to her pharmacist who thought it would be okay if she went back on her Lasix. Patient states she felt better while she was on lasix. Here in ER, Given breathing treatments initially then cardiac workup done. Trop WNL. BNP elevated with CXR showing bilateral vascular congestion. Afebrile here, no leukocytosis, hypertensive on arrival here, noted with desaturation down to 88% on RA. Normally does not wear oxygen. Decision was made to admit here for further evaluation and management. During hospital course, patient was placed on IV Lasix with good diuresis. We adjusted her BP meds Nifedipine to 90 mg daily to get her BP better controlled. She tolerated diuretics and Kidney function was monitored which remained stable. Patient responded to meds and management quicker than expected and was successfully weaned off oxygen today to RA. Underwent walk test and passed and did not qualify for oxygen at this time. Discussed with pt and daughter at bedside plan of care. Patient comfortable to transition to oral Lasix (back on her old plan which she felt it helped her better), Lasix 40 mg twice daily and stop Bumex at this time. Also sent new prescription of Nifedipine 90 mg daily. Advised to check her BP at home and keep BP log and follow with her PCP to adju st/modify her meds if needed. Pt has concerns about hyperkalemia and K supplements, advised to stop K supplements as her K has been stable here, advised to continue to follow with her PCP with serial blood work to ensure stable kidney function, well controlled blood pressure and further eval for her anemia as she was noted with Hb around 8.0. No signs or symptoms of GI bleed or symptomatic anemia. She feels much better today and would like to go home. Discussed with pt at bedside with daughter at bedside regarding what's normal blood pressure and heart rate and pulse ox. All questions answered to the patient's satisfaction. Patient in agreement and comfortable with discharge plan at this time. Advised to follow with her PCP and cardiology clinics after discharge. Pt verbalized understanding to discharge plan and instructions. Time Spent with Patient Time attestation: Total time spent providing and/or coordinating discharge services: Time spent: greater than 30 minutes Exam Narrative Exam Narrative: General: Awake, alert, oriented, no acute distress, comfortable in bed HEENT: Normocephalic atraumatic, mucous membranes are moist and pink, eyes are clear, normal conjunctiva Neck: Supple, no meningeal signs, no JVD Chest: clear to auscultation, no crackles or wheezes. CVS: Regular rate and rhythm S1-S2, no murmurs rubs or gallops, pulses are brisk and equal bilaterally ABD: Soft, nondistended, nontender, no rebound guarding or rigidity, bowel sounds are normal, no pulsatile masses appreciated Extremities: Moving all extremities, no edema of the lower extremities, chronic skin changes from the knees to the feet bilaterally, there is no calf swelling or tenderness appreciated Skin: Normal in appearance with chronic appearing hypertrophic color changes in the lower extremities bilaterally Neuro: No focal deficits Constitutional Vital Signs, click to edit/add: Last Vital Signs Temp 97.6 F 08/11/25 07:40 Pulse 63 08/11/25 10:00 Resp 16 08/11/25 07:40 BP 145/62 H 08/11/25 07:40 Pulse Ox 93 L 08/11/25 08:54 O2 Del Method Room Air 08/11/25 07:40 O2 Flow Rate 2 08/11/25 08:54 DS: Data Data Completed and Pending Labs on day of discharge: Labs from last 24 hours 08/11/25 08/11/25 10:13 05:38 WBC 5.0 RBC 2.59 L Hgb 8.0 L 7.5 L Hct 23.7 L* 22.2 L* MCV 85.7 MCH 29.0 MCHC 33.8 RDW 13.4 Plt Count 236 MPV 9.8 Neut % (Auto) 67.4 Lymph % (Auto) 15.6 L [place] % (Auto) 11.4 Eos % (Auto) 4.4 Baso % (Auto) 0.8 Neut # (Auto) 3.4 Lymph # (Auto) 0.8 L [place] # (Auto) 0.6 Eos # (Auto) 0.2 Baso # (Auto) 0.0 Abs Immat Gran (auto) 0.02 Imm/Tot Granulo (auto) 0.4 Sodium 143 Potassium 3.9 Chloride 107 Carbon Dioxide 26.9 Anion Gap 13.0 BUN 31.0 H Creatinine 1.36 H Est GFR ( Amer) 45 L Est GFR (Non-Af Amer) 37 L BUN/Creatinine Ratio 22.8 Glucose 91 Calcium 8.5 Discharge Plan Discharge Disposition: Home, Self-Care Condition: Good Plan of Treatment: -Start Furosemide 40 mg twice daily. Stop Bumetanide -Increase Nifedipine to 90 mg daily -Continue Valsartan same dose -Continue to check your blood pressure at home and keep blood pressure log and follow with your PCP after discharge -Follow with your PCP regarding anemia and ensure stable hemoglobin and monitor kidney function. Monitor for any signs of bleeding. Discharge Medications: New furosemide 40 mg tablet 40 mg PO BID Qty: 60 0RF nifedipine 90 mg tablet extended release 24hr 90 mg PO DAILY Qty: 30 0RF Continued rosuvastatin 40 mg tablet 40 mg PO DAILY alprazolam 0.25 mg tablet 0.25 mg PO BID PRN (Reason: anxiety) gabapentin 100 mg capsule 100 mg PO Q12H Patient Comments: can take in the afternoon if needed temazepam [Restoril] 15 mg capsule 15 mg PO .hs PRN (Reason: sleep) clopidogrel 75 mg tablet 75 mg PO DAILY valsartan 80 mg tablet 80 mg PO .QD pantoprazole 40 mg tablet,delayed release (DR/EC) 40 mg PO .QD umeclidinium-vilanterol [Anoro Ellipta] 62.5-25 mcg/actuation blister with device 1 inh INHALATION Q24H Discontinued potassium chloride 10 mEq tablet extended release 10 meq PO DAILY nifedipine 30 mg Tablet Extended Release 24hr 30 mg PO Q24H 30 Days Qty: 30 0RF bumetanide 1 mg tablet 1 mg PO BID Activity: increase activity as tolerated Diet: advance to your usual diet Print Language: Lebanese Patient Instructions: Heart Failure (DC) Forms: Portal Instructions Follow Up Appointments: Dr Bateman [phone] Sunday @11:45 Discharge Date/Time: 08/11/25 13:14
--- NOTE | 2025-08-11 14:06 | NUTR.NU ---
Pt w/consistently good PO intakes of Heart Healthy diet which appear to meet her estimated nutrient requirements. No dietary concerns at this time.
--- NOTE | 2025-08-12 15:14 | CM.DCFOLLOWU ---
Person spoke with: Maggie How are you feeling? I'm feeling better How is your pain? Still having some pain in my back and legs Did you understand your discharge instructions? Yes Do you have any questions about your discharge instructions? No Were you given any prescriptions at discharge? Yes Were you able to get your prescriptions filled? Yes Do you understand how to take your medications as ordered? Yes Do you have any questions about your follow up appointment and do you plan to keep your follow up appointment? No questions and yes she plans on keeping her appt Is there anything else that you would like to discuss? No Questions/Comments/Concerns/Other:
== END 2025-08-11 13:14 | disposition home or self-care (01) | DRG 291 ==
LOC: ER 07:31 → MS 09:35
PROVIDERS: Emergency Medicine; Admitting Provider Internal Medicine; Emergency Provider Emergency Medicine; PCP Internal Medicine; Visit Provider Internal Medicine
DX: I13.0 Hypertensive heart and chronic kidney disease with heart failure and stage 1 through stage 4 chronic kidney disease, or unspecified chronic kidney disease (principal); I50.33 Acute on chronic diastolic (congestive) heart failure; J96.01 Acute respiratory failure with hypoxia; I16.0 Hypertensive urgency; N18.30 Chronic kidney disease, stage 3 unspecified; G62.9 Polyneuropathy, unspecified; I25.10 Atherosclerotic heart disease of native coronary artery without angina pectoris; Z86.16 Personal history of COVID-19; Z87.01 Personal history of pneumonia (recurrent); Z90.710 Acquired absence of both cervix and uterus; Z95.5 Presence of coronary angioplasty implant and graft; Z87.891 Personal history of nicotine dependence; Z79.02 Long term (current) use of antithrombotics/antiplatelets; D64.9 Anemia, unspecified; M79.606 Pain in leg, unspecified; G89.29 Other chronic pain; E66.9 Obesity, unspecified; Z68.32 Body mass index [BMI] 32.0-32.9, adult
CPT/HCPCS: 36415; 71045; 80048; 80053; 81001; 83605; 83880; 84484; 85014; 85018; 85025; 93005; 94640; 94761; 96374; 99285; J0360; J1644; J1938

== ENCOUNTER 2025-08-14 07:03 | Inpatient (IN) | payer MEDICARE, SELFPAY ==
--- OUTSIDE RECORDS SUMMARY | 2025-08-04 07:34 | XMS_ITS | Continuity of Care Document ---
Author Organization [facility] Address [address] [place] [address] Phone Care Team Providers Care Cooper Apprentice Name Role Phone Fransico Nathan REILLY Primary Care Provider Nathan Bateman DO Attending Provider Fanny Long APRN Attending Provider Valentin Myers MD Attending Provider Kaia Krishna PAVING AND SURFACING LABOURER-C Attending Provider Care Teams Patient Care Team Team Status: Active Member Role Status Dates Nathan Bateman DO Primary Care Provider Active Visit Care Team Team Status: Inactive Member Role Status Dates Nathan Bateman DO Primary Care Provider Active Start: May 19, 2025 End: May 19Zaida Ragsdale ProviderActiveStart: May 19, 2025 End: May 19, 2025 Visit Care Team Team Status: Inactive Member Role Status Dates Nathan Bateman DO Primary Care Provider Active Start: June 19, 2025 End: June 19Zaida Ragsdale ProviderActiveStart: June 19, 2025 End: June 19, 2025 Visit Care Team Team Status: Active Member Role Status Dates Nathan Bateman DO Primary Care Provider Active Start: June 23, 2025 Zaida Prado ProviderActiveStart: June 23, 2025 Visit Care Team Team Status: Active Member Role Status Dates Nathan Bateman DO Primary Care Provider Active Start: June 24, 2025 Nathan Bateman Attending ProviderActiveStart: June 24, 2025 Visit Care Team Team Status: Active Member Role Status Dates Nathan Bateman DO Primary Care Provider Active Start: July 08, 2025 Fanny Long APRN PAVING AND SURFACING LABOURER-CAttending ProviderActiveStart: July 08, 2025 Visit Care Team Team Status: Active Member Role Status Dates Nathan Bateman DO Primary Care Provider Active Start: July 15, 2025 Valentin Myers MDAttsalina ProviderActiveStart: July 15, 2025 Visit Care Team Team Status: Inactive Member Role Status Dates Nathan Bateman DO Primary Care Provider Active Start: July 21, 2025 End: July 21Zaida Ragsdale ProviderActiveStart: July 21, 2025 End: July 21, 2025 Patient Care Team Team Status: Inactive Member Role Status Dates Nathan Bateman DO Primary Care Provider Active Start: August 04, 2025 End: August 04, 2025Kaia Krishna NP-CAttending ProviderActiveStart: August 04, 2025 End: August 04, 2025 Chief Complaint and Reason for Visit Chief Complaint Admit Date ear pain, chest burning, cough April 3:17pm wellness/3 mo f/u June 19, 2025 9: 23am leg swelling/sores July 21, 2025 3:32pm VENOUS INSUFFICIENCY W ULCERS, EDEMA Oct bronwyn 2024 10:24am Reason for Visit Admit Date Acute bronchitis due to other specified organisms May 19, 2025 3:17pm Acute exacerbation of chronic obstructiv e airways disease May 19, 2025 3:17pm Anemia June 19, 2025 9: 23am ASHD (arteriosclerotic heart disease) Au aminata 2024 [...] visit, subseque nt June 19, 2025 9:23am ASHD (arteriosclerotic heart disease) Se ptember 2024 3:32pm Chronic kidney disease July 21, 2 025 3:32pm Chronic venous insufficiency June 302024 3:32pm 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) July 21, 2025 3:32pm Acute on chronic heart failu re with preserved ejection fraction (HFpEF) July 21, 2025 3:32pm Reason for Referral Referring Provider Name Referring Provider Address Referring Provider Phone Referral Date Requested Appointment Date Referral Reason Nathan Bateman [address] [facility] [id number] Phone: September .2 - Venous insufficiency (chronic) (peripheral)July 21.2 - Venous insufficiency (chronic) (peripheral) Allergies, Adverse Reactions, Alerts Allergen Type Severity Reaction Last Updated Verified Status Comments amlodipine Allergy Unknown Unknown Reaction August 04, 2025 10:43am Yes Active amoxicillinAllergyUnknownUnknown ReactionOcttristar [facility] 2024 10:43amYesActive azithromycinAllergyUnknownrashOctober 2024 10:43amYesActivecodeineAllergy UnknownUnknown ReactionOctober 2024 10:43amYesActivedoxycyclineAllergy UnknownUnknown ReactionOctober 2024 10:43amYesActiveduloxetineAllergy UnknownUnknown ReactionOctober 2024 10:43amYesActiveguaifenesinAllergy UnknownUnknown ReactionOctober 2024 10:43amYesActivelevofloxacinAllergy UnknownUnknown ReactionOctober 2024 10:43amYesActiveondansetronAllergy UnknownUnknown ReactionOctober 2024 10:43amYesActiveOnset Date: 10/29/2019 sulfamethoxazoleAllergyUnknownUnknown ReactionOctober 2024 10:43amYesActive tetanus and diphtheria toxoidsAllergyUnknownUnknown ReactionOctober 2024 10:43amYesActivePenicillinsAllergyUnknownRashOctober 2024 10:43amYesActive 12 Hour DecongestantAllergyUnknownUnknown ReactionApril 2023 10:52amNo ActiveOnset Date: 10/29/2019Cheratussin AC *COUGH/COLD/ALLAllergyUnknownUnknown ReactionApril 2023 10:52amNoActiveFree Text Allergy: Cheratussin AC *COUGH/COLD/ALLERGY*; Onset Date: 10/29/2019 Social History Smoking Status Status Start Date End Date Date of Observa tion Never smoked tobacco (finding) February 12, 2025 6:48am Observation Status Observation Response Date of Response Legal Sex Female (finding) [facility] 1939 Family History Relationship Condition Age at Onset Recorded Date/T jerzy brother Type 2 diabetes mellitus Unknown Heart diseaseUnknownfatherMyocardial infarctionUnknownHeart diseaseUnknownmother History of implantable cardioverter-defibrillator (ICD) insertionUnknownHeart diseaseUnknownbrotherMalignant neoplasm of kidneyUnknownsisterMultiple sclerosis UnknownLeukemiaUnknownbrotherMalignant neoplasm of lungUnknownExposure to Agent OrangeUnknownbrotherMalignant neoplasm of colonUnknownbrotherMalignant neoplasm of urinary bladderUnknownbrotherMalignant neoplasm of lungUnknownbrother Malignant neoplasmUnknownfatherDeceasedUnknownmotherDeceasedUnknown Problems Active Problems Medical Problem Onset Date Status Comments 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) Unknown Active - C w/ PCI/s tent LAD, RCA (Feb, 2023)- Echo w/ LVEF 60%, ELY, normal RV size/function, RVSP 41 - 01/2024,Echo: LVEF 60-65%, normal RV size/function, mild-mod MR - 02/2025 Cervical spondylosis with radiculopathy Unknown Active Gastroesophageal reflux disease with esophagitis without hemorrhageUnknownActive Primary insomniaUnknownActiveGAD (generalized anxiety disorder)UnknownActive Nocturnal leg crampsUnknownActiveScreening mammogram for breast cancerUnknown ActiveMenopauseUnknownActiveThyroid noduleUnknownActiveUS: right 16mm TR4, left 5-7mm TR4 - 08/2024,FNA: right nodule - 11/17/24,US: no change - 01/2025 Subclinical hypothyroidismUnknownActiveElevated serum immunoglobulin free light chain levelUnknownActiveAnemiaUnknownActiveAdrenal noduleUnknownActive HypercholesterolemiaUnknownActiveChronic kidney diseaseUnknownActiveRestless leg syndromeUnknownActiveEssential hypertensionUnknownActiveMGUS (monoclonal gammopathy of unknown significance)UnknownActiveIrritable bowel syndrome with diarrheaUnknownActiveRight knee painUnknownActiveChronic venous insufficiency UnknownActiveChronic bronchitisUnknownActiveObesityUnknownActiveASHD (arteriosclerotic heart disease)UnknownActiveLHC w/ PCI/stent LAD, RCA (Feb, 2023)Inactive/Resolved Problems Medical Problem Onset Date Status Comments Hypertensive emergency Unknown Resolved Probl em List clean-up per request of Phys. EHR Cmte Tendinitis, de Quervain's Unknown Resolved Heart palpitationsUnknownResolvedHeart failureUnknownResolvedProblem List clean- up per request of Phys. EHR CmteHyperlipidemiaUnknownResolvedProblem List clean- up per request of Phys. EHR CmteFlash pulmonary edemaUnknownResolvedProblem List clean-up per request of Phys. EHR CmteAbnormal cardiovascular stress testUnknown ResolvedProblem List clean-up per request of Phys. EHR CmteHypoxiaUnknown ResolvedProblem List clean-up per request of Phys. EHR CmteHypertensionUnknown ResolvedProblem List clean-up per request of Phys. EHR CmteASHD (arteriosclerotic heart disease)UnknownResolvedProblem List clean-up per request of Phys. EHR Cmte Medications Medication Status Dose Units Route Directions Qty Days St art Date Stop Date End Date Instructions Adherence Rosuvastatin 40 mg tablet Discontinued 40 MG PO Daily 90 90 February 02, 2024 12:00am February 06, 2024 12:11pmRosuvastatin 40 mg fnonqbKygpidrosrom08JQZAAzdqw9905 February 06, 2024 12:11pmApril 2023 12:12pmRosuvastatin 40 mg tablet Gaywkqovqxmk99PSMLIrlss4659Ueail 2023 12:11pmJanuary 2024 8:24am Carvedilol 3.125 mg tabletDiscontinued0.ROUTE.AHUJTON526Iggou 2023 7:04am February 26, 2024 10:53amTAKE 1 TABLET BY MOUTH TWICE DAILY WITH FOODSacubitril- Valsartan (Entresto) 24-26 mg abausxOtxwqhiafarm6ZAZLGCuxdy xfogx7952Yll 2023 2:53pmDecember 2023 1:42pmNifedipine 30 mg tablet extended release 54smLbjtbbzbhber46HMKWElwmv2180Fvh 2023 2:54pmFebruary 2024 12:38pm Temazepam 15 mg lfwgqmdRkplaitmifmg02HQFWVywhp at qhetnef7331Tkgydv 2023 2:13pmNovember 2023 11:19pmClopidogrel 75 mg ocutgkNojpstnphiun99PIJEBzvlj 9090August 2023 11:42amSeptember 2024 7:34amGabapentin 100 mg capsule Discontinued0.ROUTE.VMXJBZT231Nvbvorp 2023 9:28amSeptember 2024 7:34amTAKE 1 CAPSULE BY MOUTH TWICE DAILYTemazepam 15 mg rwxzxmeLuejlixzubfd32BI PODaily at xmcyhqm1695Jhnrwzhy 13th, 2024 11:18pmApril 2024 10:20pm Alprazolam 0.25 mg tabletDiscontinued0.25MGPOTwice daily as needed for anxiety 63147Mzflocyo2023 3:19pmApril 2024 10:20pmFurosemide 20 mg tablet Discontinued0.ROUTE.NIMPKDA414Krmzpdzl 2023 1:59pmFebruary 2024 5:28pmTAKE 1 TABLET BY MOUTH 1 TO 2 TIMES DAILY NEEDEDValsartan 80 mg tablet Xvwbrcoyjmdf99TSEONurwu7121Psdhqsgg 2023 1:00amAugust 2024 3:16pm Rosuvastatin 40 mg tabletActive0.ROUTE.GUERONS30Ttueajf2024 8:24amTAKE 1 TABLET BY MOUTH DAILYComplies with drug therapyPantoprazole 40 mg tablet,delayed release (DR/EC)Active0.ROUTE.HIJRMMI58EgzapbuNovember 18, 2024 8:28amTAKE 1 TABLET BY MOUTH DAILY ON AN EMPTY STOMACH FOLLOWED IN 1/2 HOUR BY BREAKFASTComplies with drug therapyFluticasone Propion-Salmeterol (Advair Hfa) 115-21 mcg/actuation HFA aerosol qvambgxNpyzuimnvxxp3OTCPITIVRGIRUMEklwz 12 okgow8635Lnvycrz 2024 10:19amApril 2024 6:38amOn Hold: NoneAlbuterol Sulfate 90 mcg/actuation HFA aerosol zztyhoxTnjvcb9ZFDIEYHSYOWQPSRepra 6 hours as needed for shortness of breath or wheezing8.5January 2024 10:19amComplies with drug therapy Furosemide 20 mg hmbfblEykzssqqrmgt98JBHY.TQZIYVK715LmfazhhuDecember 19, 2024 5:26pm December 23, 2024 2:17pm20 mg orally BID on Sunday, Sunday, , Sunday; daily on Sunday, Sunday, SundayFurosemide 20 mg gpyqaeZrjjwkiobaat20TYAVFqvxr alruv775AjzjvpgxDecember 23, 2024 2:16pmApril 2024 7:05amBudesonide-Formoterol 160-4.5 mcg/actuation HFA aerosol sxraumoNsbftoxrwdod3ZABNNEVVZFCVWLEiqnh 12 hours10.230March 2024 1:00amMarch 2024 2:01pmBudesonide-Formoterol 160-4.5 mcg/actuation HFA aerosol zurhwquYsxqfdxuqprk1GZHYCEXRZGSUVQLhsjc 12 hours30.690March 2024 1:00amMarch 2024 10:26amBudesonide-Formoterol 160-4.5 mcg/actuation HFA aerosol ukawbsdKxfdoghdqpjl5PBDJFLYBPISGGEBqjso 12 hours30.690March 2024 10:25amApril 2024 7:33pmAlprazolam 0.25 mg tabletDiscontinued0.25MGPOTwice honje88537Kdrze 2024 10:19pmApril 2024 7:05amTemazepam 15 mg akjaajvPlgeta51GOWKDzvja at aqftkzl5175Nfaph 2024 10:20pmComplies with drug therapyUmeclidinium-Vilanterol (Anoro Ellipta) 62.5-25 mcg/actuation blister with iatxhrNqbwwrefxytq2WVHSAIURSROGRRrsiq8408 February 12, 2025 12:00amMay 2024 1:20pmNystatin 100,000 unit/mL suspension Gtaigtuvtqro2BXHKPekc times rogpi0113Doiob 2024 12:00amMay 2024 11:47amswish for 30 seconds and swallowUmeclidinium-Vilanterol (Anoro Ellipta) 62.5-25 mcg/actuation blister with kzneofLiowwdqwrink4IZSATHLUJBOIEOfeyu5066Uas 16th, 2025 9:43amMay 2024 1:43pmUmeclidinium-Vilanterol (Anoro Ellipta) 62.5-25 mcg/actuation blister with qrzmknEorakqfdpvjv4BCFNEYBMSHXEFNlbee27902 May 15, 2025 11:55amJuly 2024 4:04pmBumetanide 0.5 mg tablet Discontinued0.5MGPOTwice wlurl3903Xiuvchzdf 5th, 2025 12:14pmSeptember 2024 6:18pmBumetanide 1 mg deurldYvoybu2CJVRElxlz tfobu9686Pezbgdvaf 8th, 2025 6:16pm Complies with drug therapyClopidogrel 75 mg tabletActive0.ROUTE.WXXRTJM63 July 07, 2025 7:34amTAKE 1 TABLET BY MOUTH DAILYComplies with drug therapy Gabapentin 100 mg capsuleActive0.ROUTE.KTTREUJ304Wykgzuaxt 9th, 2025 7:34amTAKE 1 CAPSULE BY MOUTH TWICE DAILYComplies with drug therapyMultivitamin Tablet Ggctbfqrqxkd7CAGHBKldelRmq 2022 12:00amJuly 2022 10:50amPravastatin 40 mg uodztxGzlrkakcfcek55UZDUWgdsc eveningMay 2022 12:00amApril 2023 12:10pmNitroglycerin 0.2 mg/hr patch 24 hourDiscontinued0.2MGTRANSDERMLDailyMay 2022 12:00amJuly 2022 10:50amPotassium Chloride 10 mEq tablet extended gjbfddpEfkibjwxllpk69SSIZFOCZSO 3 WEEKSMarch 08, 2023 12:00amJune 2023 1:22pm3 times a week on even daysAspirin 81 mg Tablet,Delayed Release (Dr/Ec)Jegrgkzmrizp23PAWJRdsaj morningMarch 08, 2023 12:00amMay 2023 10:01amCarvedilol 3.125 mg tabletDiscontinued3.125MGPOTwice dailyMarch 08, 2023 12:00amJuly 2022 11:39amAlprazolam 0.25 mg tabletDiscontinued0.25MGPOThree times daily as needed for AnxietyMarch 08, 2023 12:00amApril 2023 10:39am Temazepam 15 mg vgbpgpbDsfygptprwzf45PYCUPdzri at bedtimeMarch 08, 2023 12:00am June 13, 2024 2:15pmAscorbic Acid (Vitamin C) (Vitamin C) 500 mg Tablet Sdejdxuqhwkq854ZDXHSstuuPht 2022 12:00amJuly 2022 10:50amRopinirole 0.25 mg tabletDiscontinued0.25MGPODaily at bedtime as needed for restless legs March 08, 2023 12:00amJuly 2022 10:51amPantoprazole 40 mg tablet,delayed release (DR/EC)Fptleifcptpg27ILUOAmfvt morningy 2022 12:00amJanuary 2024 8:28amFurosemide 20 mg qxoyqwDmikuiwkuklx40HEFTjenau other dayMay 2022 12:00amJuly 2022 11:39amon even days 3 times a weekGabapentin 100 mg lqulmgjXqnktibgtppu457PMQMTfugc dailyMay 2022 12:00amOctober 2023 9:28ammay take tid if neededIrbesartan 150 mg blvlggRjynrxkyrqqk419HKXL Every morningMay 2022 12:00amMay 2023 10:37amCalcium Carbonate- Vitamin D3 (Calcium 600 + D(3)) 600 mg-10 mcg (400 unit) EvhmvaZlsurmrgeocq8ECS PODailyMay 2022 12:00amJuly 2022 10:50amPsyllium Husk (Metamucil) 0.4 gram CapsuleDiscontinued0.4GMPODaily as needed for ConstipationMarch 08, 2023 12:00amJuly 2022 10:50amTicagrelor (Brilinta) 90 mg tablet Vdwmqrekfczi20YNGSQrajz jtnkl627Gxe 2022 12:00amJuly 2022 2:07pm Alprazolam 0.25 mg tabletDiscontinued0.25MGPO.q8hrs as needed for AnxietyApril 2023 10:33amNovember 2023 3:20pmAspirin 81 mg tablet,delayed release (DR/EC)Ddejvnqyawlt98KEXBWwbar morningFebruary 27, 2024 10:00amFebruary 2024 11:47amevery Sun, Sun, and FriClopidogrel 75 mg jdfnhiXrzixmqjzkbh61GQLGHjfuo May 17, 2023 12:00amAugust 2023 11:42amFluticasone Propion-Salmeterol (Advair Hfa) 115-21 mcg/actuation HFA aerosol mtptnhkGwjsummjylis1ASFECLKRXQPCPP Twice dailyly 2022 12:00amJanuary 2024 10:19amCarvedilol 3.125 mg plkufgYjgslptlmocl52.5MGPOTwice vncea53Gbhc 2022 11:38amJuly 2022 2:48pmPlease do not take if you are feeling lightheaded or have a blood pressure less than 120 systolic at homeFurosemide 20 mg gwooxiXplsrcnaqmzb76OTTAxliyy other msi65Jtez 2022 11:38amDecember 2023 2:00pmon even days 3 times a week. Goal weight is 195lbs, if you notice your weight trending up please take an extra dose as instructed by your PCPCarvedilol (Coreg) 12.5 mg tablet Bpinfrtvzldv93.5MGPOTwice kmjul99Rmyn 2022 12:00amApril 2023 10:34am must administer with a meal/foodPotassium Chloride 10 mEq tablet extended mvzzrtnYdsriy44NNNUMLgaveZvbqh 2024 12:00amComplies with drug therapy Aspirin 81 mg thjmjqdMtphaxcvombv89GOICFqxceWsczt 2024 12:00amMay 2024 11:46amAlprazolam 0.25 mg tabletActive0.25MGPOTwice daily as needed for anxietyApril 2024 12:00amComplies with drug therapyFurosemide 20 mg tablet Ghfixqvobsht27EHCFKhzdgMgkfy 2024 12:00amAugust 2024 10:05am Albuterol Sulfate 90 mcg/actuation HFA aerosol cstkbxuBcnmvndtdzcn5XPDM INHALATIONEvery 6 hours as needed for shortness of breath or wheezingApril 2023 12:00amJanuary 2024 10:19amCarvedilol 3.125 mg tabletDiscontinued 3.125MGPOTwice dailyApril 2023 12:00amApril 2023 7:04amLosartan 50 mg luzkitDlcvrhqgwird44HYNRNtsui dailyApril 2023 12:00amApril 2023 10:53amTriamcinolone Acetonide 0.1 % wollpWpoxtbszwquu3ZOSDXSASDVPWRvhvs 2023 12:00amApril 2024 6:39am1 application do not rinse afterwards and avoid eating or drinking for 30 minutes Mouth/Throat Twice a dayTriamcinolone Acetonide 0.5 % csuopMvymvbvmpohc8CGQHLBVVTFLXCSuybw dailyApril 2023 12:00amApril 2024 6:39amRopinirole 0.25 mg tabletDiscontinued0.25MGPODaily February 2023 1:00amFebruary 2023 10:32amRopinirole 0.25 mg tablet Discontinued0.96TMBJBwnnc1213Ojrvksok 2023 10:31amMay 2023 10:38am Nifedipine 30 mg tablet extended release 80dsAufsan00DYJVXoves1866Ydonsxxb 2024 12:37pmComplies with drug therapyBumetanide 0.5 mg tabletDiscontinued0.5MG POTwice ufhub7697Wysykd 2024 12:00amSeptember 2024 12:14pmValsartan 80 mg wqdqoyVfzzgr12UQTCBguha5317Orzfkz 2024 3:16pmComplies with drug therapyUmeclidinium-Vilanterol (Anoro Ellipta) 62.5-25 mcg/actuation blister with jxxzgsSxnzcr3ZSCAWPREXZDOSHwkth22533Skah 2024 3:59pmComplies with drug therapyCefdinir 300 mg ocwtiqtVrcuoipjvwjw213PKSIAvhgq yojgj042Gwus 2024 12:00amAugust 2024 9:32amCefdinir 300 mg msimzehMiucfnexlblu876TIYW Twice lasjy535Hsgur 2023 12:00amApril 2023 10:49amSacubitril- Valsartan (Entresto) 24-26 mg ekxqhrQizkomrzyvoh4LBEOGVpukh dailyApril 2023 12:00amMay 2023 2:54pmNifedipine 30 mg tablet extended release 24hr Hwhgvwixjpab25MNZMMzeejFpbbu 2023 12:00amMay 2023 2:54pm Levothyroxine 75 mcg ldeqenJfyomhnzzbcx68MSMTVNolknDjmyt 2023 12:00am September 15, 2024 10:40amUmeclidinium-Vilanterol (Anoro Ellipta) 62.5-25 mcg/actuation blister with bokefaItwgyvyxciba0PHCFHEWQBGEJVUhzgs3028Shi 2024 11:37amMay 2024 11:46amUmeclidinium-Vilanterol (Anoro Ellipta) 62.5- 25 mcg/actuation blister with naigqdEmiqrewwfhhp2HKJZMWPRBULHJVmjtx35093Kay 2024 11:38amJuly 2024 11:55am Immunizations Immunization Event Date Not Given Reason Dose Number Radar Technician Lot Number Vaccine Information Statement (VIS) Detail Administration Location [facility]/[employer], Pediatric Age 5-11 September 152021 COVID-19 mRNA-1273 (Moderna)November 27OVID mRNA, Comirnaty (Vivartes) November 27OVID mRNA, Comirnaty (Pfizer)December 18OVID mRNA, Comirnaty (Pfizer)July 30OVID mRNA, Comirnaty (Vivartes)January 28OVI Comirnaty (Vivartes) Tri-Sucrose +January 28OVI mRNA Bivalent Booster (Vivartes)September 15, 2022Fluzone TIV High-Dose 65YR+July 16, 2024UT8437BAFPG [facility]in[facility], unspecified formulation August 17, 2015influenza, unspecified formulationSeptember 2015 influenza, unspecified formulationOctober 2016influenza, unspecified formulationOctober 2017influenza, unspecified formulationOctober 2019influenza, unspecified formulationSeptember 2020influenza, unspecified formulationOctober 2021influenza, unspecified formulationOctober 2022 Pneumococcal Conjugate Vaccine, 13 valentNovember 2014Pneumococcal Polysacc. Vaccine, 23 valentOctober 2009Zoster Vaccine Recombinant, AdjuvantedJuly 2020Tetanus, Diphtheria adult, 5 Lf pres free absSeptember 2012Tetanus, Diphtheria adult, 5 Lf pres free absSeptember 2013 Shingles (Zoster)Jessica 24th, 2021Shingles (Zoster)July 22, 2021 Medical Equipment Device Date Implanted Device Details CL STENT BARBARA FRONTIER 2.5 X 18 March 09, 2023 CL STENT BARBARA FRONTIER 4.0 X 15MaL STENT BARBARA FRONTIER 4.0 X 18May 2022 Relevant Diagnostic Tests and/or Laboratory Data Laboratory Results Test Collection Date/Time Result Date/Time Result Interpretation Reference Range Result Comment Performing Site Immunoglobulin G June 23, 2025 7:25am June 23, 2025 7:25am 330 mg/dL Abnormal (applies to non-numeric results) [id number] Vitamin [facility]Aumin[facility]20[facility] 7:2024 7:02io0740 pg/mL [id number] at: [facility] [id number] Director: Carlos Witt PhD, Phone: [phone] [facility] June 23, 2025 7:2024 7:25am0.97 ng/dL0.76-1.46FolateJune 23, 2025 7:2024 7:25am17.90 ng/mL8.60-58.90FerritinA2024 7:2024 7:01al542.0 ng/mL8.0-252.0Iron Saturation June 23, 2025 7:2024 7:25am14.3 %Thyroid Stimulating Hormone 3rd GenAugus2024 7:2024 7:25am5.101 u[iU]/mL Above high normal0.358-3.740Cholesterol/HDL RatioAugus2024 7:2024 7:25am2.73.3 - 4.4 LOW RISK4.4 - 7.1 AVERAGE RISK7.1 - 11.0 MODERATE RISK>11.0 HIGH RISKAnion GapAugus2024 7:2024 7:25am12.1 Basophils # (Auto)June 23, 2025 7:25amAugu2024 7:25am0.0 10 3/uL 0.0-0.1Urine Random CreatinineAugust 2024 9:00amA2024 9:00am 84.52 mg/dL20.00-300.00Immunofixation InterpretationSept2024 9:56am July 08, 2025 9:56amAlbumin (Send Out)July 08, 2025 9:56am July 08, 2025 9:56am3.33 g/dLBelow low normal3.43-5.41Free [place]/Lambda Light Chain RatioSept2024 9:56amSept2024 9:56am12.64 Above high normal0.26-1.65Serum Total ProteinSept2024 9:56am July 08, 2025 9:56am5.5 g/dLBelow low normal6.3-8.0Alanine Aminotransferase (ALT/SGPT)July 08, 2025 9:56amSept2024 9:56am13 U/L7-38Immunoglobulin ASept2024 9:56amSept2024 9:56am64 mg/dLBelow low -766ZXU33 L265P MutationSept2024 10:03amSeptember 2024 10:03amSee tmihhymKTF92 L265P MUTATION ANALYSISLaboratory Accession Number: [id number] Type: Peripheral BloodRe sult: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 This abnormality may also be found in diffuse large B- celllymphomas and in a small percentage of other small B-cell neoplasmsincluding chronic lymphocytic leukemia and marginal zone lymphomas.Clinical and pathologic correlation is suggested.Methodology:DNA extracted from the specimen is interrogated for the presence orabsence of the L265P (c.794T>C, p.Scj657Iwm; g.[id number]; [id number])variant (mutation) in MYD88 gene (NM_002468.4) using droplet digitalpolymerase chain reaction (PCR). Droplet digital PCR includespartitioning of DNA into droplets, droplet independent PCR,interrogation using allele specific hydrolysis probes, and analysis ofdroplets using Poisson distribution to calculate the copy number ofMYD88 L265P and wild-type MYD88. The reference genome used pzSJZm63/hg38.Limitations:This test is designed to detect the L265P variant in the MYD88 gene.Uncommon variants or single nucleotide polymorphisms may affectbinding of probes or primers and may rarely result in false negative,false positive, or indeterminate results. Other variants in MYD88 willnot be identifiedby this test. The lower limit of detection of thisassay is approximately 0.5% variant allele fraction (vaf) for dekJUX07 L265P variant. Although vaf is provided for reference, thisvalue should be interpreted with caution as this test is intended forqualitative purposes and is not validated as a quantitative test. GieCXB89 L265P result cannot be used on a standalone basis for diagnosisof lymphoplasmacytic lymphoma and needs to be considered in thecontext of clinical and morphologic presentation.References:1) Nikkie VN, Cristhian RM, Hannah R, et al. Oncogenically active CWV23jwavzzaji in human lymphoma. Nature 2011. 470(6382):115-9.2) Joya SL, Anai WagonerJ, DW, James L, Mikey JR, Froilani ED: [id number] somatic mutation: its usefulness in the differential diagnosisof bone marrow involvement by B-cell lymphoproliferative disorders. AmJ Clin Pathol. 2013. 140(3):387-94.3) Obi SP, Spencer L, Brooks G,et al. 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 N Engl J Med. 2012. 367(9)663-33.4) Gage WagonerQ, Juan J YS, Ariel LL, Horcait K. Toll-like receptorsand cancer: MYD88 mutation and inflammation. Front Immunol. 2014 ;367(5):1-10.5) Nery X, Francy W, Maykel Q, et al. 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 Cancer Res. 2018. 78(10):3171-20.Disclaimer:This test was developed and its performance characteristics determinedby [facility]. Ithas not been cleared or approved by the FDA. [facility] is regulated under CLIAas certified to perform high-complexity testing. Thistest is used forclinical purposes. It should not be regarded as investigational or forresearch.Testperformed at [facility] [facility], [address] [place] [address]. CLIA Number: [id number] performed by Natalee Bolanos, PhD, HCLDErythropoietinSeptember 2024 10:03amSeptember 2024 10:03am26.4 mIU/mLAbove high normal2.6-18.5Iron LevelSept2024 10:03amSept2024 11:41pm45 ug/wJ70-773XvqlhyOwgyvxooq 17th, 2025 10:03amSept2024 10:03am17.5 ng/mL>4.7FerritinSept2024 10:03amSept2024 11:08td508.0 ng/mL14.7-205.1Vitamin B12 Level July 15, 2025 10:03amSept2024 11:16jb3645 pg/mLAbove high wuqrhq901-4161Jgnayfe Aminotransferase (ALT/SGPT)July 15, 2025 10:03am July 15, 2025 10:03am10 U/L7-38Basophils # (Auto)July 15, 2025 10:03amSept2024 10:03am0.05 k/uL<0.11Protein Electrophoresis M-Jairo June 23, 2025 7:amAugu2024 7:25am0.2 g/dLAbnormal (applies to non-numeric results)Not ObservedIron LevelAugust 2024 7:25amA2024 7:25am35.0 ug/dLBelow low jhimut85.0-170.0Cholesterol LevelAugust 2024 7:25amA2024 7:34wq197 mg/dL<=200Albumin/Globulin RatioAugust 2024 7:252024 7:25am1.0Basophils (%) (Auto)June 23, 2025 7:25amA2024 7:25am0.7 %0.2-2.0Urine Random MicroalbuminAugust 2024 9:00amA2024 9:00am20.1 mg/dL<=30.0Serum Immunofixation July 08, 2025 9:56amSeptember 2024 9:56amAbnormal (applies to non- numeric results)No M protein is identified.Zbtsh-4-NvrbnfqpqUxupvlnfb 10th, 2025 9:56amSept2024 9:56am0.42 g/dL0.18-0.43Free Lambda Light Chains, QuantSept2024 9:56amSept2024 9:56am23.8 mg/L5.7-26.3 Rarely, increased serum free light chains levels may not be detected or accurately quantified due to prozone phenomenon or in high viscosity samples using this immunoturbidimetric assay. Correlation with other laboratory results and clinical findings is recommended. The Lambda Free Light Chain was performed using the Binding Site Optilite immunoturbidimetric method. Result obtained with differentassay methods or kits cannot be used interchangeably.AlbuminSept2024 9:56amSept2024 9:56am3.6 g/dLBelow low normal3.9-4.9 Immunoglobulin GSept2024 9:56amSept2024 9:77my464 mg/dL Below low tcrmod257-8444Zefku Iron Binding CapacitySept2024 10:03am July 15, 2025 11:38hb949 ug/wL512-435VnxmnlgPzyolpesi 17th, 2025 10:03am July 15, 2025 10:03am3.7 g/dLBelow low normal3.9-4.9Basophils (%) (Auto) July 15, 2025 10:03amSeptember 2024 10:03am0.8 %Globulin (PEP) June 23, 2025 7:252024 7:25am2.5 g/dL2.2-3.9Total Iron Binding CapacityAugust 2024 7:252024 7:55il893.0 ug/dLBelow low mggwol578.0-450.0HDL CholesterolAugust 2024 7:2024 7:25am45 mg/dL40-60> or =60 mg/dl - LOW CARDIOVASCULAR RISK<40 mg/dl - HIGH CARDIOVASCULAR RISKAlbuminAugust 2024 7:252024 7:25am3.2 g/dLBelow low normal3.4-5.0Eosinophils # (Auto)June 23, 2025 7:252024 7:25am0.2 10 3/uL0.0-0.7Urine Microalbumin/Creatinine RatioAuminers' colfax medical centert 2024 9:00amA2024 9:40vg023.8 mg/gAbove high normal0.0-29.9NO MICROALBUMINURIA 0-29 MG/GCLINICAL MICROALBUMINURIA 30-300 MG/GMACROALBUMINURIA >300 MG/GLeuk/Lymph Sign Pathologist (Misc)July 08, 2025 9:56amSeptember 2024 9:56amReviewed by Dr. Jennifer David KSAmmho-8-BfztzflvfDcpqqqzgv 10th, 2025 9:56amSept2024 9:56am0.86 g/dL0.42-0.98Free [place] Light Chains, QuantSeptember 2024 9:56amSept2024 9:61zg467.9 mg/L Above high normal3.3-19.4Rarely, increased serum free light chains levels may not be detected or accurately quantified due to prozone phenomenon or in high viscosity samples using this immunoturbidimetric assay. Correlation with other laboratory results and clinical findings is recommended. The [place] Free Light Chain was performed using the Binding Site Optilite immunoturbidimetric method. Result obtained with different assay methods or kits cannot be used interchangeably.Aspartate Amino Transf (AST/SGOT)July 08, 2025 9:56am July 08, 2025 9:56am22 U/W86-38Yqwxyrkvsryspx MSe2024 9:56amSept2024 9:16rd816 mg/dLAbove high -119Hbfe Saturation July 15, 2025 10:03amSept2024 11:41pm17.6 %15.0-57.0Aspartate Amino Transf (AST/SGOT)July 15, 2025 10:03amSept2024 10:03am 16 U/A28-25Dmcicslvqox # (Auto)July 15, 2025 10:03amSept2024 10:03am0.16 k/uL<0.46Albumin/Globulin (PEP)June 23, 2025 7:25amAugu2024 7:25am1.30.7-1.7LDL Cholesterol, CalculatedAugus2024 7:252024 7:25am60.2 mg/dL<100 mg/dl WUUOUCC943-600 mg/dl NEAR OR ABOVE DFBLNMF387-777 mg/dl BORDERLINE FYSJ953-154 mg/dl HIGH>190 mg/dl VERY HIGH Alkaline PhosphataseAugus2024 7:252024 7:25am47 U/L46-116 Eosinophils (%) (Auto)June 23, 2025 7:25amA2024 7:25am2.7 % 0.9-7.0Beta GlobulinsSept2024 9:56amSept2024 9:56am0.53 g/dLBelow low normal0.61-1.17Total BilirubinSept2024 9:56amSept2024 9:56am0.3 mg/dL0.2-1.3Total BilirubinSept2024 10:03am July 15, 2025 10:03am0.3 mg/dL0.2-1.3Eosinophils (%) (Auto)July 15, 2025 10:03amSeptember 2024 10:03am2.5 %Serum Immunofixation InterpretationAugust 2024 7:2024 7:25amCommentAbnormal (applies to non-numeric results).Immunofixation shows IgM monoclonal protein with kappalight chain specificity.Triglycerides LevelAugust 2024 7:25am June 23, 2025 7:25am89 mg/dL<=150Alanine Aminotransferase (ALT/SGPT)June 23, 2025 7:2024 7:25am18 U/P03-89QxpfszcuqnCedfvg 26th, 2025 7:2024 7:25am28.3 %Below low nuydcw24.0-48.0Gamma Globulins July 08, 2025 9:56amSeptember 2024 9:56am0.37 g/dLBelow low normal 0.53-1.51Carbon Dioxide LevelSept2024 9:56amSeptember 2024 9:56am24 mmol/C24-95Xpawgx Dioxide LevelSeptember 2024 10:03amSeptember 2024 10:03am28 mmol/U37-01ApmyyhnglqSbcjstbcq 2024 10:03amSeptember 2024 10:03am8.9 g/dLBelow low loduee50.5-15.5Protein Electrophoresis Note June 23, 2025 7:2024 7:25amComment.Protein electrophoresis scan will follow via computer,mail, or machine container washer delivery.VLDL CholesterolAugust 2024 7:252024 7:25am17.8 mg/dLAspartate Amino Transf (AST/SGOT)June 23, 2025 7:2024 7:25am18 U/T22-36Zceuydnbur June 23, 2025 7:2024 7:25am9.3 g/dLBelow low normal 12.0-16.0Protein Electrophoresis NoteSept2024 9:56amSept2024 9:56amNo definitive M protein is identified on protein electrophoresis.No definitive M protein is identified on protein electrophoresis.Chloride Level July 08, 2025 9:56amSept2024 9:58em436 mmol/R24-624Sdqwdhjm LevelSept2024 10:03amSept2024 10:30wf393 mmol/L98-107 Lymphocytes # (Auto)July 15, 2025 10:03amSept2024 10:03am0.77 k/uLBelow low normal1.00-4.00Free [place] Light Chains, QuantAugust 2024 7:25amA2024 7:96vd095.6 mg/LAbnormal (applies to non-numeric results)3.3-19.4BUN/Creatinine RatioAugus2024 7:252024 7:25am15.2Immature Granulocyte # (Auto)June 23, 2025 7:2024 7:25am0.02 10 3/uL0.00-0.03Protein Electrophoresis M-SpikeSept2024 9:56amSept2024 9:56am0.00 g/dL<=0.00CreatinineSept2024 9:56amSept2024 9:56am1.65 mg/dLAbove high normal0.58-0.96Creatinine July 15, 2025 10:03amSept2024 10:03am1.64 mg/dLAbove high normal0.58-0.96Lymphocytes (%) (Auto)July 15, 2025 10:03amSept2024 10:03am12.3 %Free Lambda Light Chains, QuantAugust 2024 7:2024 7:25am21.2 mg/L5.7-26.3Blood Urea NitrogenAugust 2024 7:25am June 23, 2025 7:25am22.0 mg/dLAbove high normal7.0-18.0Immature Granulocyte % (Auto)June 23, 2025 7:25amAugust 2024 7:25am0.4 %0.0-0.5 Miscellaneous Test 6Sept2024 9:56amSeptember 2024 9:56amSee commentNot Applicable.Glucose LevelSeptember 2024 9:56amSeptember 2024 9:06yp535 mg/dLAbove high -40Xzi [place] [employer] (ADA) provides guidance for cutoff values for fasting glucose andrandom glucose. The ADA defines fasting as no caloric intake for at least 8 hours. Fasting plasma glucose results between 100 to 125 mg/dL indicate increased risk for diabetes (prediabetes).Fasting plasma glucose results greater than or equal to 126 mg/dL meet the criteria for diagnosis of diabetes. In the absence of unequivocal hyperglycemia, results should be confirmed by repeat testing. In a patient with classic symptoms of hyperglycemia or hyperglycemic crisis, random plasma glucose resultsgreater than or equal to 200 mg/dL meet the criteria for diagnosis of diabetes.Reference: [employer] in Diabetes 2016, [place] Diabetes Association. Diabetes Care. 2016.39(Suppl 1).Glucose Level July 15, 2025 10:03amSept2024 10:54ak699 mg/dLAbove high ghfoxg54-53Qbp [place] Diabetes Association (ADA) provides guidance for cutoff values for fasting glucose andrandom glucose. The ADA defines fasting as no caloric intake for at least 8 hours. Fasting plasma glucose results between 100 to 125 mg/dL indicate increased risk for diabetes (prediabetes).Fasting plasma glucose results greater than or equal to 126 mg/dL meet the criteria for diagnosis of diabetes. In the absence of unequivocal hyperglycemia, results should be confirmed by repeat testing. In a patient with classic symptoms of hyperglycemia or hyperglycemic crisis, random plasma glucose resultsgreater than or equal to 200 mg/dL meet the criteria for diagnosis of diabetes.Reference: [employer] in Diabetes 2016, [place] [employer]. Diabetes Care. 2016.39(Suppl 1).Monocytes # (Auto)July 15, 2025 10:03am July 15, 2025 10:03am0.65 k/uL<0.87Free [place]/Lambda Light Chain Ratio June 23, 2025 7:252024 7:25am10.59Abnormal (applies to non- numeric results)0.26-1.65Performed at: - [facility] [place], [place] [address] Director: Carlos Witt PhD, Phone: [phone] Calcium LevelAugust 2024 7:25amA2024 7:25am8.9 mg/dL8.5-10.1 Lymphocytes # (Auto)June 23, 2025 7:2024 7:25am0.8 10 3/uL Below low normal1.2-3.8Protein Electrophoresis InterpretSeptember 2024 9:56amSeptember 2024 9:56amPotassium LevelSeptember 2024 9:56am July 08, 2025 9:56am5.3 mmol/LAbove high normal3.7-5.1Potassium Level July 15, 2025 10:03amSeptember 2024 10:03am4.7 mmol/L3.7-5.1 Neutrophils # (Auto)July 15, 2025 10:03amSeptember 2024 10:03am4.62 k/uL1.45-7.50Immunoglobulin AAugu2024 7:2024 7:25am62 mg/dLAbnormal (applies to non-numeric results)64-422Chloride LevelAugust 2024 7:252024 7:95iw921 mmol/J99-877Fimqggnzskv (%) (Auto)June 23, 2025 7:252024 7:25am14.4 %Below low nynbja32.5-60.0 Miscellaneous Test CommentSept2024 9:56amSeptember 2024 9:56am Reviewed by Dr. Jennifer David MDSerum Total ProteinSept2024 10:03am July 15, 2025 10:03am5.9 g/dLBelow low normal6.3-8.0Neutrophils (%) (Auto)July 15, 2025 10:03amSept2024 10:03am73.5 % Immunoglobulin MAugu2024 7:2024 7:53ey076 mg/dL Abnormal (applies to non-numeric results)26-217Carbon Dioxide LevelAugust 2024 7:2024 7:25am30.2 mmol/L21.0-32.0Mean Corpuscular HemoglobinAugust 2024 7:2024 7:25am29.0 pg26.7-34.0Sodium LevelSept2024 9:56amSept2024 9:47bu784 mmol/N918-650 Sodium LevelSeptember 2024 10:03amSeptember 2024 10:51tu669 mmol/L 136-144Nucleated Red Blood Cells #July 15, 2025 10:03amSept2024 10:03am<0.01 k/uL<0.01Serum Total ProteinAugust 2024 7:2024 7:25am5.7 g/dLAbnormal (applies to non-numeric results)6.0-8.5 CreatinineAugust 2024 7:2024 7:25am1.45 mg/dLAbove high normal0.55-1.02Mean Corpuscular Hemoglobin ConcentAugust 2024 7:2024 7:25am32.9 g/dL29.9-35.2Blood Urea NitrogenSeptember 2024 9:56amSeptember 2024 9:56am27 mg/dLAbove high normal-Blood Urea NitrogenSeptember 2024 10:03amSeptember 2024 10:03am32 mg/dLAbove high normal-Platelet CountSeptember 2024 10:03amSeptember 2024 10:41ft006 k/zW054-454Ihogsnc (Send Out)June 23, 2025 7:2024 7:25am3.2 g/dL2.9-4.4Estimated GFR ()June 23, 2025 7:2024 7:34zp99Ykwqv low normal>=60 mL/min/1.73m 2Mean Corpuscular VolumeAugust 2024 7:2024 7:25am88.2 fL 81.0-99.0Alkaline PhosphataseSeptember 2024 9:56amSeptember 2024 9:56am48 U/I58-070Vixbxzrr PhosphataseSeptember 2024 10:03amSeptember 2024 10:03am45 U/A84-666Rxnm Corpuscular HemoglobinSeptember 2024 10:03amSeptember 2024 10:03am28.8 pg26.0-34.7Eckdb-6-XqsglfelzMtqcmi 26th, 2025 7:2024 7:25am0.3 g/dL0.0-0.4Estimated GFR (Non- AmericanAugust 2024 7:2024 7:05dd35Mzwba low normal>=60 mL/min/1.73m 2Monocytes # (Auto)June 23, 2025 7:2024 7:25am 0.5 10 3/uL0.3-0.8Calcium LevelSeptember 2024 9:56amSeptember 2024 9:56am8.9 mg/dL8.5-10.2Calcium LevelSeptember 2024 10:03amSeptember 2024 10:03am9.0 mg/dL8.5-10.2Mean Corpuscular Hemoglobin ConcentSeptember 2024 10:03amSeptember 2024 10:03am32.2 g/dL30.5-36.8Xnnew-2-Nmwptzoya June 23, 2025 7:25amAugu2024 7:25am1.0 g/dL0.4-1.0GlobulinAugus2024 7:252024 7:25am3.3 g/dLMonocytes (%) (Auto)June 23, 2025 7:2024 7:25am8.7 %1.7-12.0Anion GapSept2024 9:56amSept2024 9:56am11 mmol/L8-15Anion GapSept2024 10:03amSept2024 10:03am10 mmol/L8-15Mean Corpuscular Volume July 15, 2025 10:03amSept2024 10:03am89.3 fL80.0-100.0Beta GlobulinsA2024 7:252024 7:25am0.7 g/dL0.7-1.3Glucose LevelAugus2024 7:2024 7:25am94 mg/xE00-952Cbvp Platelet VolumeAuminers' [facility]2024 7:2024 7:25am10.2 fL9.5-13.5Estimated GFR (CKD-EPI)July 08, 2025 9:56amSept2024 9:56am31 mL/min/1.73m???Below low normal>=60Estimated Glomerular Filtration Rate (eGFR) is calculated using the 2020 CKD-EPI creatinine equation. This equation utilizes serum creatinine, sex, and age as parameters. The creatinine assay has trac eable calibration to isotope dilution-mass spectrometry. Refer to KDIGO guidelines for clinical interpretation. In patients with unstable renal function, e.g. those with acute kidney injury, the eGFRmay not accurately reflect actual GFR.Estimated GFR (CKD-EPI)July 15, 2025 10:03amSept2024 10:03am31 mL/min/1.73m???Below low normal>=60Estimated Glomerular Filtration Rate (eGFR) is calculated using the 2020 CKD-EPI creatinine equation. This equation utilizes serum creatinine, sex, and age as parameters. The creatinine assay has traceable calibration to isotope dilution-mass spectrometry. Refer to KDIGO guidelines for clinical interpretation. In patients with unstable renal function, e.g. those with acute kidney injury, the eGFRmay not accurately reflect actual GFR.Red Blood CountSeptember 2024 10:03am July 15, 2025 10:03am3.09 m/uLBelow low normal3.90-5.20Gamma Globulins June 23, 2025 7:2024 7:25am0.5 g/dL0.4-1.8Potassium Level June 23, 2025 7:2024 7:25am4.3 mmol/L3.5-5.1Neutrophils # (Auto)June 23, 2025 7:2024 7:25am4.1 10 3/uL1.4-6.5 HematocritSeptember 2024 10:03amSept2024 10:03am27.6 %Below low tkrtof15.0-46.0Sodium LevelAugust 2024 7:252024 7:25am 142 mmol/U903-785Edgcqznahzj (%) (Auto)June 23, 2025 7:2024 7:25am73.1 %43.0-75.0Monocytes (%) (Auto)July 15, 2025 10:03amSept2024 10:03am10.4 %Total BilirubinAugust 2024 7:2024 7:25am0.5 mg/dL0.2-1.0Platelet CountAugust 2024 7:252024 7:19px955 10 3/oM259-220Vqfrpetgi White Blood CountSeptember 2024 10:03am July 15, 2025 10:03am6.28 k/uL3.70-11.00Total ProteinAugust 2024 7:amA2024 7:25am6.5 g/dL6.4-8.2Red Blood CountAugust 2024 7:2024 7:25am3.21 10 6/uLBelow low normal4.20-5.40Nucleated RBC Relative Count (auto)July 15, 2025 10:03amSeptember 2024 10:03am 0.0 /100{WBC}Red Cell Distribution WidthAugust 2024 7:2024 7:25am13.8 %11.0-15.0Red Cell Distribution WidthSept2024 10:03amSeptember 2024 10:03am13.5 %11.5-15.0Corrected White Blood Count June 23, 2025 7:2024 7:25am5.6 10 3/uL4.0-11.0Mean Platelet VolumeSeptember 2024 10:03amSeptember 2024 10:03am9.9 fL9.0-12.7 Differential CommentSept2024 10:03amSeptember 2024 10:03amAuto Immature Granulocyte # (Auto)July 15, 2025 10:03amSeptember 2024 10:03am0.03 k/uL<0.10Immature Granulocyte % (Auto)July 15, 2025 10:03am July 15, 2025 10:03am0.5 % Vital Signs Vital Reading Result Reference Range Collection Date/Time Height 65.5 [in_i] May 19, 2025 3:54ykFcqjwh73.13 kgJuly 2024 3:33pmHeart Rate67 /min 60-100July 2024 3:33pmRespiratory rate14 /jkw69-80Lnsp 2024 3:33pm Oxygen saturation by Pulse wudojjrq07 %95-100July 2024 3:33pmBP Systolic 148 mm[Hg]100-140July 2024 3:33pmBP Caqbwzyjz71 mm[Hg]60-100July 2024 3:33pmBMI (Body Mass Index)31.8 kg/m2July 2024 3:84inTmeoej80.5 [in_i]June 19, 2025 9:57gfBmdtmg23.81 kgAugust 2024 9:31amHeart Rate62 /koa28-554Terkvi 2024 9:31amRespiratory rate14 /kub62-93Mxvlfw 2024 9:31amOxygen saturation by Pulse ierunexb96 %95-100August 2024 9:31amBP Kkbhwrrz424 mm[Hg]100-140August 2024 9:31amBP Lxemjyqbm02 mm[Hg]60-100 June 19, 2025 9:31amBMI (Body Mass Index)32.4 kg/c0Qwomef 2024 9:31am Qwihgw89.5 [in_i]July 21, 2025 3:09mfIaqdbd08.45 kgSeptember 2024 3:53pmHeart Rate76 /epw52-681Wsdyhnsix 2024 3:53pmRespiratory rate12 /min 12-24September 2024 3:53pmBP Jwfxgpbe417 mm[Hg]100-140September 2024 3:53pmBP Wmgxmndcb19 mm[Hg]60-100September 2024 3:53pmBMI (Body Mass Index)31.9 kg/j3Enmegmvfm 2024 3:84fgUtdkej25 [in_i]August 04, 2025 10:49ycVopqey15.45 kgOctober 2024 10:44amBody Cqzmsqplmlx90.6 [degF] 97.6-99.0October 2024 10:44amHeart Rate69 /bdx80-725Trlcflr 2024 10:44amOxygen saturation by Pulse caoaytjz41 %95-100Oct2024 10:44amBP Jmofzapa110 mm[Hg]100-140October 2024 10:44amBP Bebpvglcw65 mm[Hg]60-100 August 04, 2025 10:44amBMI (Body Mass Index)34.5 kg/p2Nkhbisb 2024 10:44am Advance Directives Advance Directive Response Recorded Date/ Time Advance Directives No March 07 1:03pm Insurance Providers Guarantor Kg Deras Address [address] [address]Ufpruiu Info.Home Phone: Payer Policy Id Subscriber's Name Subscriber Id Effectiv e Date Expiration Date Medicare [id number] Maggie Whaley Kg [id number] Medicare [id number] Encounters Encounter Location(s) Arrival/Admit Date Discharge/Depart Date Provider(s) Departed Physician/Prov ider Office Visit -[facility] May 19, 2025 3:17pm May 19, 2025 4:07pm Nathan Bateman DO Departed Physician/Prov ider Office Visit -[facility] June 19, 2025 9:23am June 19, 2025 10:27am Nathan Bateman DO Non-patient / Non-visit -[facility] 2024 7:25am Deangelo Prado-patient / Kou-ibxbf-Lpjxh [facility] 2024 9:00amBDeangelo Ragsdale-patient / Byz-enxgy-Wloxt [facility]September 2024 9:56amFanny Long APRN OP-WEjq-gzvxnsy / Gay-fixkw-Wasdx [facility] 2024 10:03amDIANA Griffitheparted Physician/Provider [facility] 3:32pmSeptember 2024 4:33pmDANIEL Pradoeparted Physician/Provider [facility] 2024 10:24amOctober 2024 11:32amKaia Krishna APRN Recent Diagnosis Onset Date Admit Date Acute bronchitis due to othe r specified organisms Unknown May 19, 2025 3:17pm Acute exacerbation of chroni c obstructive airways disease Unknown May 19, 2025 3:17pm Anemia Unknown June 19 9:23am ASHD (arteriosclerotic heart disease) Unknown June 19, 2025 9:23am Chronic bronchitis Unknown June 19, 2025 9:23am Chronic kidney disease Unknown June 192024 9:23am Chronic venous insufficiency Unknown May 9:23am Essential hypertension Unknown June 192024 9:23am OMAR (generalized anxiety disorder) Unknown June 19, 2025 9:23am Gastroesophageal reflux dise ase with esophagitis without hemorrhage Unknown June 19, 2025 9:23a m Hypercholesterolemia Unknown May 9:23am MGUS (monoclonal gammopathy of unknown significance) Unknown June 19, 2025 9:23am Obesity Unknown June 19 9:23am Screening mammogram for breast cancer Unknown June 19, 2025 9:23am Subclinical hypothyroidism Unknown 2024 9:23am Thyroid nodule Unknown June 19 9:23am Acute on chronic heart failu re with preserved ejection fraction (HFpEF) Unknown June 19, 2025 9:23am Medicare annual wellness visit, subsequent Unkno wn June 19, 2025 9:23am ASHD (arteriosclerotic heart disease) Unknown July 21, 2025 3:32pm Chronic kidney disease Unknown July 21, 2025 3:32pm Chronic venous insufficiency Unknown Jun tember 2024 3:32pm MGUS (monoclonal gammopathy of unknown significance) Unknown July 21, 2025 3:32pm Acute on chronic heart failu re with preserved ejection fraction (HFpEF) Unknown July 21, 2025 3:32pm Assessments Diagnosis Onset Date Resolution Status Admit Date Acute bronchitis due to other specified organisms noneactiveJuly 2024 3:17pmAcute exacerbation of chronic obstructive airways diseasenoneactiveJuly 2024 3:17pmAnemiaacuteAugust 2024 9:23amASHD (arteriosclerotic heart disease)acuteAugust 2024 9:23amChronic bronchitisacuteAugust 2024 9:23amChronic kidney diseaseacuteAugust 2024 9:23amChronic venous insufficiencyacuteAugust 2024 9:23amEssential hypertensionacuteAugust 2024 9:23amGAD (generalized anxiety disorder)acute June 195 9:23amGastroesophageal reflux disease with esophagitis without hemorrhageacuteAugust 2024 9:23amHypercholesterolemiaacuteAugust 2024 9:23amMGUS (monoclonal gammopathy of unknown significance)acuteAugust 2024 9:23amObesityacuteAugust 2024 9:23amScreening mammogram for breast canceracuteAugust 2024 9:23amSubclinical hypothyroidismacuteAugust 2024 9:23amThyroid noduleacuteAugust 2024 9:23amAcute on chronic heart failure with preserved ejection fraction (HFpEF)noneactiveAugust 2024 9:23amMedicare annual wellness visit, subsequentnoneactiveAugust 2024 9:23amASHD (arteriosclerotic heart disease)acuteSeptember 2024 3:32pm Chronic kidney diseaseacuteSeptember 2024 3:32pmChronic venous insufficiencyacuteSeptember 2024 3:32pmMGUS (monoclonal gammopathy of unknown significance)acuteSeptember 2024 3:32pmAcute on chronic heart failure with preserved ejection fraction (HFpEF)noneactiveSeptember 2024 3:32pm Plan of Treatment Author Nathan Bateman [facility] CenterAuthoredAugust 2024 4:22pmI have instructed this patient on a low salt diet, exercise and daily weights. I have instructed them to notify the office for any on any unexpected weight gain > 3lbs and /or increased dyspneaon exertion, difficulty breathing during sleep, worsening lower extremity swelling, chest pain or lightheadedness. I have reviewed the GDMT with beta blockers, BRAD/ARB or ARNI, MRA and a SGLT-2i. LHC w/ PCI/stent LAD, RCA (Feb, 2023) Echo w/ LVEF 60%, ELY, normal RV size/function, RVSP 41 - 01/2024 Echo: LVEF 60-65%, normal RV size/function, mild-mod MR - 02/2025 She has gained weight w/ associated wheezing and increased edema - doubled Furosemide w/o corresponding increase in urine output She does have CKD, likely due to permissive azotemia from diuretic use Suggest trial of Bumex or Torsemide as alternative to Lasix, sometimes will get better response at lower dose Continue Valsartan without interruption Replace Furosemide w/ Bumetanide Consider SGLT2 This patient is stable without activity related chest pain, dyspnea or lightheadedness. I instructed them to continue exercise at least 3x weekly and consume a low salt, low fat, high fiber diet. I instructed them to continue secondary prevention measures in reducing risks for recurrent events. - LHC w/ PCI/stent LAD, RCA (Feb, 2023) - Echo w/ LVEF 60%, ELY, normal RV size/function, RVSP 41 - 01/2024, - Echo: LVEF 60-65%, normal [...] the correct procedure for obtaining home BP measurements:? - rest for 5 minutes w/o talking. [...] will restart Levothyroxine at a lower dose. [place] I, nondiagnostic per FNA - 10/2024 f/u [...] instructed this patient on a low-fat, high-fiber diet.?? I have also instructed them to reduce calories, portions sizes, sweet drinks and snacks.?? I have also recommended they exercise for [...] this patient to avoid lying flat after eating.?? I have also recommended to avoid eating 2 hours prior to bedtime.?? They were also informed that smaller, frequent meals may be better tolerated. I have discussed additional treatment options for persistent symptoms, which includes: weight loss, H2 blockers and PPI. I have also instructed them to notify the office with any pain or difficulty swallowing. Continue Pantoprazole without interruption Instructed on a healthy diet and exercise routine. Instructed to continue medical treatment w/o interruption. Instructed to avoid abrupt d/c of medication due to w/d symptoms. Continue Xanax as needed - aware of sedating side effects and increased risk of falls I have instructed this patient on monthly SBE and recommended yearly mammograms. Recheck CBC w/ Fe, B12 and FA Author Nathan Bateman [facility] CenterAuthoredJuly 2024 4:10pmI have instructed this patient to use Robitussin or Mucinex for cough, [...] for cough ER for CP or SOB Author Nathan Bateman [facility] CenterAuthoredSeptember 2024 4:56pmI have instructed this patient on a low salt diet, exercise and daily weights. I have instructed them to notify the office for any on any unexpected weight gain > 3lbs and /or increased dyspneaon exertion, difficulty breathing during sleep, worsening lower extremity swelling, chest pain or lightheadedness. I have reviewed the GDMT with beta blockers, BRAD/ARB or ARNI, MRA and a SGLT-2i. [facility] w/ PCI/stent LAD, RCA (Feb, 2023) Echo w/ LVEF 60%, ELY, normal RV size/function, RVSP 01/2024 Echo: LVEF 60-65%, normal RV size/function, mild-mod MR - 02/2025 She has gained weight w/ associated wheezing and increased edema - doubled Furosemide w/o corresponding increase in urine output She does have CKD, likely due to permissive azotemia from diuretic use Suggest trial of Bumex or Torsemide as alternative to Lasix, sometimes will get better response at lower dose Continue Valsartan without interruption Replace Furosemide w/ Bumetanide Consider SGLT2 This patient is stable without activity related chest pain, dyspnea or lightheadedness. I instructed them to continue exercise at least 3x weekly and consume a low salt, low fat, high fiber diet. I instructed them to continue secondary prevention measures in reducing risks for recurrent events. - [facility] w/ PCI/stent LAD, RCA (Feb, 2023) - Echo w/ LVEF 60%, ELY, normal RV size/function, RVSP 01/2024, - Echo: LVEF 60-65%, normal RV [...] due to RHF secondary to pulmonary hypertension I have instructed this patient to avoid salt and elevate their lower extremities. I have also recommended use of support stockings. I instructed them to inspect their legs and feet daily for blisters and ulcerations. Continue Bumex q am and try to decrease evening dose to qod. - monitor leg edema and weight closely Refer to Vascular surgery for evaluation. Recent SPEP, IF, FLC revealed small M-spike, elevated [place] light chain and elevated K/L ratio Referred back to Hematology Future Tests Future scheduled test information is unavailable Pending Tests Pending diagnostic test information is unavailable Future Visits Future appointment information is unavailable Referrals to Other Providers Reason for Referral Referral Start Date Provider Gregory armendariz Contact Information Provider Address [address] - Venous insufficiency (chronic) (peripheral) July 21, 2025 Seth ([facility]) Jose Future Procedures Procedure Name Ordered Date Scheduled Date Ferritin June 19, 2025 4:01pm FolateAugust 2024 4:01pmLipid PanelAugust 2024 4:01pmThyroid Stimulating HormoneAugust 2024 4:01pm Future Medications Future medication information is unavailable Patient Instructions Patient instructions are unavailable
[2025-08-14] VITALS (28 sets, daily range): BP systolic 122–187; BP diastolic 59–97; PULSE 64–88; TEMP 36.3–36.7; O2SAT 91–97; BMI 36.1; BMI 32.8
--- NOTE | 2025-08-14 07:13 | ECG_ITS ---
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 Measurements Intervals [place] Rate: 85 P: 37 MN: 146 QRS: 50 QRSD: 78 T: 31 QT: 372 QTc: 415 Interpretive Statements 1100 Sinus rhythm 1102 Sinus arrhythmia 9110 normal ECG Compared to ECG 08/10/2025 05:49:22 No significant changes Electronically Signed On 08-14-2025 18:06:04 EDT by MASSIEL STEPHENSON M.D.
--- NOTE | 2025-08-14 07:20 | PC.NURSE ---
Reports chest pain that occurs with flare of SOB, then better with rest.
--- NOTE | 2025-08-14 07:35 | XR_ITS ---
The [address] [address] Patient Name: LASHAUN JOAQUIN MRN: [id number] date: 1940 Sex: F Assigned Patient Location: ER Current Patient Location: ED.MAIN Accession/Order Number: [id number] Exam Date: 08/14/2025 07:42 Report Date: 08/14/2025 08:08 At the request of: EVGENY CORBIN MD Procedure: XR chest 1V XR chest 1V 08/14/2025 7:49 AM SIGNS AND SYMPTOMS: ^SOB ^Y PROTOCOL: Frontal radiograph of the chest COMPARISON: 08/10/2025 FINDINGS: The trachea is midline. There is cardiomegaly. There is perihilar vascular prominence and interstitial prominence suggesting congestive heart failure. There are small bilateral pleural effusions. The bony thorax is intact. XR/XR chest 1V IMPRESSION: Findings suggest congestive heart failure similar to the prior exam. Small accompanying bilateral pleural effusions are noted. Impression dictated by: Gregorio Pedroza M.D. 08/14/2025 8:08 AM Dictation Location: [place] [address] Electronically authenticated by: [id number] Y Date: 08/14/2025 08:08
--- NOTE | 2025-08-14 07:35 | ECG_ITS ---
The [facility] Test Date: 2025-08-14 Pat Name: LASHAUN JOAQUIN Department: Room: - Gender: Female Watcher [employer]: : 1940 Requested By: [id number] Order Number: [id number] Reading MD: CAILIN CARLOS Measurements Intervals [place] Rate: 87 P: 30 CO: 130 QRS: 44 QRSD: 96 T: 21 QT: 368 QTc: 413 Interpretive Statements 1100 Sinus rhythm 4068 Nonspecific [place] abnormality 9130 borderline ECG Compared to ECG 08/10/2025 05:49:22 No significant changes Electronically Signed On 08-14-2025 9:59:45 EDT by CAILIN CARLOS
--- NOTE | 2025-08-14 07:36 | ED.GENADUL1 ---
HPI HPI - General Adult General Chief complaint: Shortness of Breath/Dyspnea Stated complaint: SHORTNESS OF BREATH Time Seen by Provider: 08/14/25 07:13 Mode of arrival: Wheelchair History of Present Illness HPI narrative: 84-year-old female presented to the emergency department for a chief complaint of shortness of breath. She was released from this hospital 3 days ago after being admitted for congestive heart failure. She has been taking all of her medications but during the night she got quite short of breath and she is put on 2 pounds since yesterday. No fever or productive cough. She tells me she wants to go back home today. Related Data Home Medications ?Medication ?Instructions ?Recorded ?Confirmed alprazolam 0.25 mg tablet 0.25 mg PO BID PRN anxiety 04/11/23 08/14/25 gabapentin 100 mg capsule 100 mg PO Q12H 04/11/23 08/14/25 temazepam 15 mg capsule (Restoril) 15 mg PO .hs PRN sleep 04/11/23 08/14/25 clopidogrel 75 mg tablet 75 mg PO DAILY 07/27/23 08/14/25 rosuvastatin 40 mg tablet 40 mg PO DAILY 02/18/24 08/14/25 pantoprazole 40 mg tablet,delayed 40 mg PO .QD 08/10/25 08/14/25 release umeclidinium 62.5 mcg-vilanterol 1 inh inhalation Q24H 08/10/25 08/14/25 25 mcg/actuation powdr for inhalation (Anoro Ellipta) valsartan 80 mg tablet 80 mg PO .QD 08/10/25 08/14/25 Previous Rx's ?Medication ?Instructions ?Recorded furosemide 40 mg tablet 40 mg PO BID #60 tabs 08/11/25 nifedipine 90 mg tablet,extended 90 mg PO DAILY #30 tabs 08/11/25 release 24 hr Allergies Allergy/AdvReac Type Severity Reaction Status Date / Time azithromycin Allergy Severe Unknown Verified 08/14/25 07:18 amlodipine Allergy Unknown Verified 08/14/25 07:18 doxycycline Allergy Unknown Verified 08/14/25 07:18 duloxetine (From Cymbalta) Allergy Unknown Verified 08/14/25 07:18 ondansetron (From Zofran) Allergy Unknown Verified 08/14/25 07:18 sulfamethoxazole (From Allergy Unknown Verified 08/14/25 07:18 Bactrim) tetanus and diphtheria Allergy Unknown Verified 08/14/25 07:18 toxoids trimethoprim (From Bactrim) Allergy Unknown Verified 08/14/25 07:18 codeine AdvReac Severe Anxiety Verified 08/14/25 07:18 Opioid HPI Opioid Management Most Recent Opioid Data: Last Pain Scale 2 08/10/25, 18:23 Last Pain Intensity 0 02/18/, 08:28 Last Pain Assessment 08/10/25, 10:00 Last ORT Total Score 0 08/10/25, 09:51 Last ORT Risk Category Low Risk 08/10/25, 09:51 Review of Systems ROS Narrative A ten point review of systems is negative except as noted above. [facility] Medical History Chronic heart failure with preserved ejection fraction (HFpEF) ?I50.32 - Chronic diastolic (congestive) heart failure (ICD-10) Peripheral neuropathy ?G62.9 - Polyneuropathy, unspecified (ICD-10) Peripheral edema ?R60.0 - Localized edema (ICD-10) HTN (hypertension) ?I10 - Essential (primary) hypertension (ICD-10) GERD (gastroesophageal reflux disease) ?K21.9 - Gastro-esophageal reflux disease without esophagitis (ICD-10) Pneumonia due to COVID-19 virus ?U07.1 - COVID-19 (ICD-10) ?J12.82 - Pneumonia due to coronavirus disease 2019 (ICD-10) COVID-19 ?U07.1 - COVID-19 (ICD-10) Obesity ?E66.9 - Obesity, unspecified (ICD-10) Coronary artery disease ?I25.10 - Atherosclerotic heart disease of [place] coronary artery without angina pectoris (ICD-10) Surgical History H/O: hysterectomy ?Z90.710 - Acquired absence of both cervix and uterus (ICD-10) Stented coronary artery ?Z95.5 - Presence of coronary angioplasty implant and graft (ICD-10) Family History Brother Family history of diabetes mellitus Family history of cancer Sister Family history of cancer Social History Within the past year, how often did you have a drink containing alcohol: never Within the past year, how often did you have six or more drinks on one occasion: never Score interpretation: A score less than 3 is consistent with normal alcohol consumption. 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 [employer] Known occupational exposures/hazards: No Highest level of school completed/degree received: 11th grade Do you want help with school or training: No Are you now , , , , never or living with a partner: In a typical week, how many times do you talk on the telephone with family, friends, or neighbors: 3 or more times per week How often do you get together with friends or relatives: twice per week How often do you attend holiness or jewish services: 4 or more times per year Do you belong to any clubs or organizations such as holiness groups unions, fraternal or athletic groups, or school groups: yes Total score: 4 Score interpretation: A score of greater than or equal to 2 indicates the lowest level of social isolation. Little interest or pleasure in doing things: not at all Feeling down, depressed, or hopeless: not at all Feel stressed/tense/nervous/anxious/difficulty sleeping: only a little Due to disability, difficulty making decisions: No Do you think of yourself as: straight/heterosexual Gender Identity: female Exam Narrative Exam Narrative: Nurses note and vital signs reviewed and patient is not hypoxic. General:The patient appears in no acute respiratory distress but appears tired. Skin:Warm, dry, no pallor noted.There is no rash noted. Head:Normocephalic, atraumatic Eye: Normal conjunctiva, no drainage Ears, Nose, Mouth, and Throat: oral mucosa is moist. Nares patent. Cardiovascular:Regular Rate and Rhythm Respiratory: Bilateral rales present at the bases Back:non-tender GI: Soft and nontender Musculoskeletal: Compression stockings are on both lower extremities which appear to be swollen Neurological: Awake and alert Psychiatric:Cooperative Constitutional Vital Signs, click to edit/add: Last Vital Signs Temp 98.0 F 08/14/25 07:08 Pulse 75 08/14/25 08:40 Resp 16 08/14/25 08:40 BP 173/68 H 08/14/25 08:31 Pulse Ox 95 08/14/25 08:40 O2 Del Method Nasal Cannula 08/14/25 07:18 O2 Flow Rate 2 08/14/25 07:48 Course Vital Signs Vital signs: Vital Signs Temperature 98.0 F 08/14/25 07:08 Pulse Rate 84 08/14/25 07:08 Respiratory Rate 36 H 08/14/25 07:08 Blood Pressure 177/59 H 08/14/25 07:08 Pulse Oximetry 91 L 08/14/25 07:08 Oxygen Delivery Method Room Air 08/14/25 07:08 Temperature 98.0 F 08/14/25 07:08 Pulse Rate 75 08/14/25 08:40 Respiratory Rate 16 08/14/25 08:40 Blood Pressure 173/68 H 08/14/25 08:31 Pulse Oximetry 95 08/14/25 08:40 Oxygen Delivery Method Nasal Cannula 08/14/25 07:18 Oxygen Delivery Flow Rate 2 08/14/25 07:48 Medical Decision Making MDM Narrative Medical decision making narrative: The patient presents with shortness of breath particularly with exertion and orthopnea. She has had slight weight gain as well despite taking her medications. Her workup is consistent with congestive heart failure and she is symptomatic. O2 sat was 91% on room air. She was administered 20 mg of IV Lasix and is being admitted. Findings are discussed with the patient and her family. Differential Diagnosis Differential Diagnosis: Heart failure, pneumonia, STEMI, NSTEMI Lab Data Lab results reviewed: Yes I reviewed the patient's lab results Labs: Lab Results 08/14/25 Range/Units 07:41 WBC 6.9 (4.0-11.0) 10^3/uL RBC 2.90 L (4.20-5.40) 10^6/uL Hgb 8.2 L (12.0-16.0) g/dL Hct 24.9 L (36.0-48.0) % MCV 85.9 (81.0-99.0) fL MCH 28.3 (26.7-34.0) pg MCHC 32.9 (29.9-35.2) g/dL RDW 13.5 (11.0-15.0) % Plt Count 276 (150-450) 10^3/uL MPV 10.0 (9.5-13.5) fL Neut % (Auto) 80.6 H (43.0-75.0) % Lymph % (Auto) 9.4 L (20.5-60.0) % Bertie % (Auto) 6.7 (1.7-12.0) % Eos % (Auto) 2.5 (0.9-7.0) % Baso % (Auto) 0.4 (0.2-2.0) % Neut # (Auto) 5.6 (1.4-6.5) 10^3/uL Lymph # (Auto) 0.7 L (1.2-3.8) 10^3/uL Bertie # (Auto) 0.5 (0.3-0.8) 10^3/uL Eos # (Auto) 0.2 (0.0-0.7) 10^3/uL Baso # (Auto) 0.0 (0.0-0.1) 10^3/uL Abs Immat Gran (auto) 0.03 (0.00-0.03) 10^3/uL Imm/Tot Granulo (auto) 0.4 (0.0-0.5) % Sodium 134 L (136-145) mmol/L Potassium 4.2 (3.5-5.1) mmol/L Chloride 101 (98-107) mmol/L Carbon Dioxide 23.9 (21.0-32.0) mmol/L Anion Gap 13.3 BUN 32.0 H (7.0-18.0) mg/dL Creatinine 1.51 H (0.55-1.02) mg/dL Est GFR ( Amer) 40 L (>=60 mL/min/1.73m^2) Est GFR (Non-Af Amer) 33 L (>=60 mL/min/1.73m^2) BUN/Creatinine Ratio 21.2 Glucose 108 H (74-106) mg/dL Calcium 8.4 L (8.5-10.1) mg/dL Troponin I High Sens 15.5 (4.0-51.3) pg/mL NT-Pro-B Natriuret Pep 1330.0 (<=1800.0) pg/mL Imaging Data Chest x-ray: Radiologist's impression: ITS Impressions Chest X-Ray 08/14/25 07:35 IMPRESSION: Findings suggest congestive heart failure similar to the prior exam. Small accompanying bilateral pleural effusions are noted. Impression dictated by: Gregorio Pedroza M.D. 08/14/2025 8:08 AM Dictation Location: [place] [address] Electronically authenticated by: [id number] Y Date: 08/14/2025 08:08 ECG Data Attestation: I personally reviewed and interpreted this ECG as follows: (EKG on my interpretation shows normal sinus rhythm with a rate of 87 and no acute change) Critical Care Time Critical Care Time Critical Care Time: Yes Total Critical Care Time: 35 Attestation: Due to the high probability of sudden and clinically significant deterioration in the patient's condition he/she required the highest level of my preparedness to intervene urgently I provided critical care time including documentation time, medication orders and management, reevaluation, vital sign assessment, ordering and reviewing of lab tests, ordering and reviewing of x-ray studies, and admission orders. Aggregate critical care time is 35 minutes including only time during which I was engaged in work directly related to his/her care and did not include time spent treating other patients simultaneously. Discharge Plan Discharge Chief Complaint: Shortness of Breath/Dyspnea Clinical Impression: Congestive heart failure Patient Disposition: Admitted As Inpatient Time of Disposition Decision: 08:28 Condition: Fair
--- OUTSIDE RECORDS SUMMARY | 2025-08-14 07:41 | XMS_ITS | CCD ---
Author Organization [facility] Care Team Providers Care Taffy Puller Name Role Phone Nathan Hathaway DO Primary [...] Care Unavailable DO Jonna Perry Attending Provider [phone] DO Nathan Hathaway Primary Care Provider [phone] Nathan Hathaway Unavailable [place], Dr. Edinson Hinojosa [...] Fransico REILLY, Nathan Attending Provider Nathan Hathaway DO [...] Provider Fransico REILLY, Nathan Primary Care Provider [phone] KeJorge L whyte DO Emergency Provider HOLDEN [...] Care Provider Fransico REILLY, Nathan Attending Provider [phone] Nathan Hathaway DO Primary Care Provider [phone] Fransico REILLY, Nathan Attending Provider [phone] BALL, NATHAN E Primary Care Unavailable SONJA PAOLO Attending Unavailable BALL, NATHAN E Primary Care Unavailable BALL, NATHAN E Referring Unavailable BALL, NATHAN E Primary Care Unavailable BALL, NATHAN E Referring Unavailable BALL, NATHAN E Primary Care Unavailable BALL, NATHAN E Referring Unavailable Fanny Bedoya APRN Attending Provider [phone] Valentin Leonard MD, V Attending Provider [phone] Shelbi CASTRO-C, Kaia Campos Attending Provider [phone] Allergies Allergy Classification Reported Allergen(s) Allergy Type Date of Onset Reaction(s) Facility (20 sources) amLODIPine; Translations: [AMLODIPINE] Drug Allergy 07-27-20 Unknown [facility] (12 sources) Codeine / guaiFENesin; Translations: [CODEINE-GUAIFENESI N] Drug Allergy 07-27-20 21 Unknown [facility] (12 sources) Doxycycline; Translations: [DOXYCYCLINE HYCLATE] Drug Allergy 07-27-20 21 Unknown [facility] (20 sources) DULoxetine; Translations: [DULOXETINE] Drug Allergy 07-27-20 21 Unknown [facility] (20 sources) levoFLOXacin; Translations: [LEVOFLOXACIN] Drug Allergy 07-27-20 21 Unknown [facility] (20 sources) Ondansetron; Translations: [ONDANSETRON] Drug Allergy 07-27-20 Unknown [facility] Comment on above: Onset Date: 10/29/19 20 (20 sources) Penicillins; Translations: [PENICILLINS] Propensity to adverse reactions to drug 07-27-20 21 Unknown [facility] (20 sources) Sulfamethoxazole / Trimethoprim; Translations: [Bactrim] Drug Allergy 07-27-20 Unknown, Hives [facility] (8 sources) Tetracycline (class of antibiotic); Translations: [TETRACYCLINES] Propensity to adverse reactions to drug 07-27-20 Unknown [facility] (12 sources) Iodine And Iodide Containing Products; Translations: [IODINE AND IODIDE CONTAINING PRODUCTS] Drug Allergy 01-20-20 21 Unknown [facility] (20 sources) Tetanus And Diphtheria Toxoids; Translations: [TETANUS AND DIPHTHERIA TOXOIDS] Propensity to adverse reactions to drug 07-27-20 21 Unknown [facility] (20 sources) Amoxicillin Drug Allergy 02-01-20 24 Unknown, Unknown Reaction [facility] (20 sources) Codeine / guaiFENesin Drug Allergy Unknown [facility] Other (20 sources) Doxycycline Drug Allergy 12-09-19 19 Unknown, Unknown Reaction [facility] (20 sources) levoFLOXacin Drug Allergy Unknown [facility] Other (20 sources) Ondansetron; Translations: [Zofran] Drug Allergy 11-05-[address] [facility] (20 sources) Tetanus-Diphtheria Toxoids Td Drug allergy Unknown [facility] Other (20 sources) Allopurinol Drug Allergy 11-05-19 [address] [facility] (1 source) amLODIPine Drug Allergy 11-05-[address] [facility] (1 source) Doxycycline Drug Allergy [facility] (1 source) DULoxetine Drug Allergy 11-05-[address] [facility] (1 source) Iodine (And Iodine Containting Drugs) Drug allergy (disorder) 01-20-[address] [facility] (1 source) Sulfamethoxazole / Trimethoprim Drug Allergy 11-05-[address] [facility] (9 sources) Sulfonamides (Antibiotic); Translations: [SULFA (SULFONAMIDE ANTIBIOTICS)] Allergy to substance 03-08-20 23 Rash, Unknown [facility] (16 sources) Sulfamethoxazole Drug Allergy 03-09-20 23 Unknown Reaction [facility] (8 sources) Trimethoprim; Translations: [TRIMETHOPRIM] Drug Allergy 03-09-20 23 Unknown [facility] (20 sources) Pseudoephedrine; Translations: [PSEUDOEPHEDRINE] Drug Allergy 10-29-19 Unknown [facility] Other (20 sources) Tetracycline Drug Allergy Unknown [facility] Other (20 sources) Cheratussin AC *COUGH/COLD/ALLERGY * Propensity to adverse reactions 10-29-19 Unknown [facility] Other (20 sources) Zofran *ANTIEMETICS* Propensity to adverse reactions 10-29-[address] [facility] Other (5 sources) amLODIPine Drug Allergy Unknown [facility] Other (20 sources) Azithromycin; Translations: [AZITHROMYCIN] Drug Allergy 10-17-20 rash, Swelling [facility] (20 sources) Codeine Drug Allergy 02-01-20 Unknown Reaction [facility] (15 sources) guaiFENesin Drug Allergy 02-01-20 24 Unknown Reaction [facility] (15 sources) 12 Hour Decongestant Allergy to substance 02-01-20 Unknown Reaction [facility] Comment on above: Onset Date: 10/29/19 (15 sources) Cheratussin AC *COUGH/COLD/ALL Allergy to substance 02-01-20 Unknown Reaction [facility] Comment on above: Free Text Allergy: C heratussin AC *COUGH/COLD/ALLERGY*; Onset Date: 10/29/2019 (8 sources) Penicillins Drug Intolerance 07-27-20 21 [facility] (4 sources) Penicillins Propensity to adverse reactions to drug 07-27-20 21 Unknown [facility] (4 sources) Tetracyclines Propensity to adverse reactions to drug 07-27-20 21 Unknown [facility] (1 source) Allopurinol; Translations: [ALLOPURINOL] Drug Allergy 11-05-19 [facility] Medications Current Medications Medication Drug Class(es) Dates Sig (Normalized) Sig (Original) AeroChamber Mini Chamber - (5 sources) Start: 04-20-2023 AeroChamber Mini Chamber - Use with MDI every 6 hours as needed inhaled every 6 hours as needed for 30 days Mar, Active [id number] 200 actuat albuterol 0.09 mg/actuat metered dose [...] twice daily. 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; Translations: [OTH ROLL ON WORKER CURRENT DRUG THERAPY] Onset: 02-14-2023 Episodic Other [...] 07-15-2025 Basophils (Bld) [#/Vol] 0.05 10*3/uL <0.11 [facility] Basophils/100 WBC Auto (Bld) Ordered By: Valentin Leonard on 07-15-2025 Basophils/100 WBC (Bld) 0.8 % [facility] Blood manual differential co mment interpretation narrativeOrdered By: Valentin Leonard on 07-15-2025 Manual differential comment Arturo (Bld) [Interp] Auto [facility] CBC W Auto Differential pane l (Bld)on 07-15-2025 Basophils (Bld) [#/Vol] 0.05 10*3/uL Normal <0.11 [facility] Comment on above: Order Comment: Speci men Type: BLOOD SPECIMEN Ordering Facility: [facility] Address: [address] [place] [address] Performed By: #### 1 5061-5 #### [facility] CLIA [id number] [address] [place] [address] [place] Basophils/100 WBC (Bld) 0.8 % Normal [facility] Comment on above: Order Comment: Speci men Type: BLOOD SPECIMEN Ordering Facility: [facility] Address: [address] [place] [address] Performed By: #### 1 5061-5 #### [facility] CLIA [id number] [address] [place] [address] [place] Differential cell count method Nom (Bld) Auto Normal [facility] Comment on above: Order Comment: Speci men Type: BLOOD SPECIMEN Ordering Facility: [facility] Address: [address] [place] [address] Performed By: #### 1 5061-5 #### [facility] CLIA [id number] [address] [place] [address] [place] Eosinophils (Bld) [#/Vol] 0.16 10*3/uL Normal <0.46 [facility] Comment on above: Order Comment: Speci men Type: BLOOD SPECIMEN Ordering Facility: [facility] Address: [address] [place] [address] Performed By: #### 1 5061-5 #### [facility] CLIA [id number] [address] [place] [address] [place] Eosinophils/100 WBC (Bld) 2.5 % Normal [facility] Comment on above: Order Comment: Speci men Type: BLOOD SPECIMEN Ordering Facility: [facility] Address: [address] [place] [address] Performed By: #### 1 5061-5 #### [facility] CLIA [id number] [address] [place] [address] [place] Erythrocyte distribution width (RBC) [Ratio] 13.5 % Normal 11.5-15.0 [facility] Comment on above: Order Comment: Speci men Type: BLOOD SPECIMEN Ordering Facility: [facility] Address: [address] [place] [address] Performed By: #### 1 5061-5 #### [facility] CLIA [id number] [address] [place] [address] [place] Hematocrit (Bld) [Volume fraction] 27.6 % Low 36.0-46.0 [facility] Comment on above: Order Comment: Speci men Type: BLOOD SPECIMEN Ordering Facility: [facility] Address: [address] [place] [address] Performed By: #### 1 5061-5 #### [facility] CLIA [id number] [address] [place] [address] [place] Hemoglobin (Bld) [Mass/Vol] 8.9 g/dL Low 11.5-15.5 [facility] Comment on above: Order Comment: Speci men Type: BLOOD SPECIMEN Ordering Facility: [facility] Address: [address] [place] [address] Performed By: #### 1 5061-5 #### [facility] CLIA [id number] [address] [place] [address] [place] Immature granulocytes (Bld) [#/Vol] 0.03 10*3/uL Normal <0.10 [facility] Comment on above: Order Comment: Speci men Type: BLOOD SPECIMEN Ordering Facility: [facility] Address: [address] [place] [address] Performed By: #### 1 5061-5 #### [facility] CLIA [id number] [address] [place] [address] [place] Immature granulocytes/100 WBC (Bld) 0.5 % Normal [facility] Comment on above: Order Comment: Speci men Type: BLOOD SPECIMEN Ordering Facility: [facility] Address: [address] [place] [address] Performed By: #### 1 5061-5 #### [facility] CLIA [id number] [address] [place] [address] [place] Lymphocytes (Bld) [#/Vol] 0.77 10*3/uL Low 1.00-4.00 [facility] Comment on above: Order Comment: Speci men Type: BLOOD SPECIMEN Ordering Facility: [facility] Address: [address] [place] [address] Performed By: #### 1 5061-5 #### [facility] CLIA [id number] [address] [place] [address] [place] Lymphocytes/100 WBC (Bld) 12.3 % Normal [facility] Comment on above: Order Comment: Speci men Type: BLOOD SPECIMEN Ordering Facility: [facility] Address: [address] [place] [address] Performed By: #### 1 5061-5 #### [facility] CLIA [id number] [address] [place] [address] [place] MCH (RBC) [Entitic mass] 28.8 pg Normal 26.0-34.0 [facility] Comment on above: Order Comment: Speci men Type: BLOOD SPECIMEN Ordering Facility: [facility] Address: [address] [place] [address] Performed By: #### 1 5061-5 #### [facility] CLIA [id number] [address] [place] [address] [place] MCHC (RBC) [Mass/Vol] 32.2 g/dL Normal 30.5-36.0 [facility] Comment on above: Order Comment: Speci men Type: BLOOD SPECIMEN Ordering Facility: [facility] Address: [address] [place] [address] Performed By: #### 1 5061-5 #### [facility] CLIA [id number] [address] [place] [address] [place] MCV (RBC) [Entitic vol] 89.3 fL Normal 80.0-100.0 [facility] Comment on above: Order Comment: Speci men Type: BLOOD SPECIMEN Ordering Facility: [facility] Address: [address] [place] [address] Performed By: #### 1 5061-5 #### [facility] CLIA [id number] [address] [place] [address] [place] Monocytes (Bld) [#/Vol] 0.65 10*3/uL Normal <0.87 [facility] Comment on above: Order Comment: Speci men Type: BLOOD SPECIMEN Ordering Facility: [facility] Address: [address] [place] [address] Performed By: #### 1 5061-5 #### [facility] CLIA [id number] [address] [place] [address] [place] Monocytes/100 WBC (Bld) 10.4 % Normal [facility] Comment on above: Order Comment: Speci men Type: BLOOD SPECIMEN Ordering Facility: [facility] Address: [address] [place] [address] Performed By: #### 1 5061-5 #### [facility] CLIA [id number] [address] [place] [address] [place] Neutrophils (Bld) [#/Vol] 4.62 10*3/uL Normal 1.45-7.50 [facility] Comment on above: Order Comment: Speci men Type: BLOOD SPECIMEN Ordering Facility: [facility] Address: [address] [place] [address] Performed By: #### 1 5061-5 #### [facility] CLIA [id number] [address] [place] [address] [place] Neutrophils/100 WBC (Bld) 73.5 % Normal [facility] Comment on above: Order Comment: Speci men Type: BLOOD SPECIMEN Ordering Facility: [facility] Address: [address] [place] [address] Performed By: #### 1 5061-5 #### [facility] CLIA [id number] [address] [place] [address] [place] Nucleated RBC (Bld) [#/Vol] 10*3/uL Normal <0.01 [facility] Comment on above: Order Comment: Speci men Type: BLOOD SPECIMEN Ordering Facility: [facility] Address: [address] [place] [address] Performed By: #### 1 5061-5 #### [facility] CLIA [id number] [address] [place], [place] [id number] [place] Nucleated RBC/100 WBC (Bld) [Ratio] 0.0 /100 WBC Normal [facility] Comment on above: Order Comment: Speci men Type: BLOOD SPECIMEN Ordering Facility: [facility] Address: [address] [place] [address] Performed By: #### 1 5061-5 #### [facility] CLIA [id number] [address] [place] [address] [place] Platelet mean volume (Bld) [Entitic vol] 9.9 fL Normal 9.0-12.7 [facility] Comment on above: Order Comment: Speci men Type: BLOOD SPECIMEN Ordering Facility: [facility] Address: [address] [place] [address] Performed By: #### 1 5061-5 #### [facility] CLIA [id number] [address] [place] [address] [place] Platelets (Bld) [#/Vol] 295 10*3/uL Normal 150-400 [facility] Comment on above: Order Comment: Speci men Type: BLOOD SPECIMEN Ordering Facility: [facility] Address: [address] [place] [address] Performed By: #### 1 5061-5 #### [facility] CLIA [id number] [address] [place] [address] [place] RBC (Bld) [#/Vol] 3.09 10*6/uL Low 3.90-5.20 [facility] Comment on above: Order Comment: Speci men Type: BLOOD SPECIMEN Ordering Facility: [facility] Address: [address] [place] [address] Performed By: #### 1 5061-5 #### [facility] CLIA [id number] [address] [place] [address] [place] WBC (Bld) [#/Vol] 6.28 10*3/uL Normal 3.70-11.00 [facility] Comment on above: Order Comment: Speci men Type: BLOOD SPECIMEN Ordering Facility: [facility] Address: [address] [place] [address] Performed By: #### 1 5061-5 #### [facility] CLIA [id number] [address] [place], [place] [address] [place] [address] [facility] [place] Comprehensive metabolic 2000 panelon 07-15-2025 Albumin [Mass/Vol] 3.7 g/dL Low 3.9-4.9 [facility] Comment on above: Order Comment: Speci men Type: BLOOD SPECIMEN Ordering Facility: [facility] Address: [address] [place] [address] Performed By: #### 2 4323-8 #### [facility] CLIA [id number] [address] [place] [address] ALP [Catalytic activity/Vol] 45 U/L Normal 34-123 [facility] Comment on above: Order Comment: Speci men Type: BLOOD SPECIMEN Ordering Facility: [facility] Address: [address] [place] [address] Performed By: #### 2 4323-8 #### [facility] CLIA [id number] [address] [place] [address] 67557 ALT [Catalytic activity/Vol] 10 U/L Normal 7-38 [facility] Comment on above: Order Comment: Speci men Type: BLOOD SPECIMEN Ordering Facility: [facility] Address: [address] [place] [address] Performed By: #### 2 4323-8 #### [facility] CLIA [id number] [address] [place] [address] 72029 Anion gap [Moles/Vol] 10 mmol/L Normal 8-15 [facility] Comment on above: Order Comment: Speci men Type: BLOOD SPECIMEN Ordering Facility: [facility] Address: [address] [place] [address] Performed By: #### 2 4323-8 #### [facility] CLIA [id number] [address] [place] [address] AST [Catalytic activity/Vol] 16 U/L Normal 13-35 [facility] Comment on above: Order Comment: Speci men Type: BLOOD SPECIMEN Ordering Facility: [facility] Address: [address] [place] [address] Performed By: #### 2 4323-8 #### [facility] CLIA [id number] [address] [place] [address] Bilirubin [Mass/Vol] 0.3 mg/dL Normal 0.2-1.3 [facility] Comment on above: Order Comment: Speci men Type: BLOOD SPECIMEN Ordering Facility: [facility] Address: [address] [place] [address] Performed By: #### 2 4323-8 #### [facility] CLIA [id number] [address] [place] [address]246 Calcium [Mass/Vol] 9.0 mg/dL Normal 8.5-10.2 [facility] Comment on above: Order Comment: Speci men Type: BLOOD SPECIMEN Ordering Facility: [facility] Address: [address] [place] [address] Performed By: #### 2 4323-8 #### [facility] CLIA [id number] [address] [place] [address] Chloride [Moles/Vol] 101 mmol/L Normal 98-107 [facility] Comment on above: Order Comment: Speci men Type: BLOOD SPECIMEN Ordering Facility: [facility] Address: [address] [place] [address] Performed By: #### 2 4323-8 #### [facility] CLIA [id number] [address] [place] [address]386 CO2 [Moles/Vol] 28 mmol/L Normal 22-30 [facility] Comment on above: Order Comment: Speci men Type: BLOOD SPECIMEN Ordering Facility: [facility] Address: [address] [place] [address] Performed By: #### 2 4323-8 #### [facility] CLIA [id number] [address] [place] [address] Creatinine [Mass/Vol] 1.64 mg/dL High 0.58-0.96 [facility] Comment on above: Order Comment: Speci men Type: BLOOD SPECIMEN Ordering Facility: [facility] Address: [address] [place] [id number] Performed By: #### 2 4323-8 #### [facility] CLIA [id number] [address] [place] [address]305 eGFRcr SerPlBld CKD-EPI 2020 31 mL/min/1.73m??? Low >=60 [facility] Comment on above: Order Comment: Speci men Type: BLOOD SPECIMEN Ordering Facility: [facility] Address: [address] [place] [address] Result Comment: Shoshana mated Glomerular Filtration Rate [...] GFR. Performed By: #### 2 4323-8 #### [facility] CLIA [id number] [address] [place] [address]160 Glucose [Mass/Vol] 103 mg/dL High 74-99 [facility] Comment on above: Order Comment: Speci men Type: BLOOD SPECIMEN Ordering Facility: [facility] Address: [address] [id number] Result Comment: The [place] [employer] (ADA) provides guidance for cutoff [...] Standards of Medical Care in Diabetes 2016, [place] [employer]. Diabetes Care. 2016.39(Suppl 1). Performed By: #### 2 4323-8 #### [facility] CLIA [id number] [address] [place] [address] Potassium [Moles/Vol] 4.7 mmol/L Normal 3.7-5.1 [facility] Comment on above: Order Comment: Speci men Type: BLOOD SPECIMEN Ordering Facility: [facility] Address: [address] [place] [address] Performed By: #### 2 4323-8 #### [facility] CLIA [id number] [address] [place] [address]86 Protein [Mass/Vol] 5.9 g/dL Low 6.3-8.0 [facility] Comment on above: Order Comment: Speci men Type: BLOOD SPECIMEN Ordering Facility: [facility] Address: [address] [place], [place] [address] Performed By: #### 2 4323-8 #### [facility] CLIA [id number] [address] [place] [address] 17910 Sodium [Moles/Vol] 139 mmol/L Normal 136-144 [facility] Comment on above: Order Comment: Speci men Type: BLOOD SPECIMEN Ordering Facility: [facility] Address: [address] [place] [address] Performed By: #### 2 4323-8 #### [facility] CLIA [id number] [address] [place] [address]855 Urea nitrogen [Mass/Vol] 32 mg/dL High 7-21 [facility] Comment on above: Order Comment: Speci men Type: BLOOD SPECIMEN Ordering Facility: [facility] Address: [address] [place] [address] Performed By: #### 2 4323-8 #### [facility] CLIA [id number] [address] [place] [address] EPO SerPl-aCncon 07-15-2025 Erythropoietin (EPO) Qn 26.4 mIU/mL High 2.6-18.5 [facility] Comment on above: Order Comment: Speci men Type: BLOOD SPECIMEN Ordering Facility: [facility] Address: [address] [place] [address] Performed By: #### 1 5061-5 #### [facility] CLIA [id number] [address] [place] [address] [place] Eosinophils/100 WBC Auto (Bl d)Ordered By: Valentin Leonard on 07-15-2025 Eosinophils/100 WBC (Bld) 2.5 % [facility] Erythrocyte distribution wid th Auto (RBC) [Ratio]Ordered By: Valentin Leonard on 07-15-2025 Erythrocyte distribution width (RBC) [Ratio] 13.5 % 11.5-15.0 [facility] Ferritin SerPl-mCncon 2024 Ferritin [Mass/Vol] 174.0 ng/mL Normal 14.7-205.1 [facility] Comment on above: Order Comment: Speci men Type: BLOOD SPECIMEN Ordering Facility: [facility] Address: [address] [place] [address] Performed By: #### 5 0190-8, 2284-8, 9, 2275-4 #### [facility] CLIA [id number] [address] [place] [address] [place] Folate SerPl-mCncon 07-15-20 25 Folate [Mass/Vol] 17.5 ng/mL Normal >4.7 [facility] Comment on above: Order Comment: Speci men Type: BLOOD SPECIMEN Ordering Facility: [facility] Address: [address] [place] [address] Performed By: #### 5 0190-8, 2284-8, 9, 6-4 #### [facility] CLIA [id number] [address] [place] [address] [place] Glomerular filtration rate [ Volume Rate/Area] in Serum, Plasma or Blood by CreatinineOrdered By: Valentin Leonard on 07-15-2025 Glomerular filtration rate [Volume Rate/Area] in Serum, Plasma or Blood by Creatinine 31 mL/min/1.73m??? Low >=60 [facility] Comment on above: Estimated Glomerular Filtration [...] (Bld) [Volume fraction] 27.6 % Low 36.0-46.0 [facility] Hemoglobin [Mass/volume] in BloodOrdered By: Valentin Leonard on 07-15-2025 Hemoglobin (Bld) [Mass/Vol] 8.9 g/dL Low 11.5-15.5 [facility] Iron and Iron binding capaci ty panelon 07-15-2025 Iron [Mass/Vol] 45 ug/dL Normal 41-186 [facility] Comment on above: Order Comment: Speci men Type: BLOOD SPECIMEN Ordering Facility: [facility] Address: [address] [place] [address] Performed By: #### 5 0190-8, 2284-8, 2132-9, 2276-4 #### [facility] CLIA [id number] [address] [place] [address] [place] Iron binding capacity [Mass/Vol] 255 ug/dL Normal 232-386 [facility] Comment on above: Order Comment: Speci men Type: BLOOD SPECIMEN Ordering Facility: [facility] Address: [address] [place] [address] Performed By: #### 5 0190-8, 4-8, 2131-9, 6-4 #### [facility] CLIA [id number] [address] [place] [address] [place] Iron/TIBC [Molar ratio] 17.6 % Normal 15.0-57.0 [facility] Comment on above: Order Comment: Speci men Type: BLOOD SPECIMEN Ordering Facility: [facility] Address: [address] [place] [address] Performed By: #### 5 0190-8, 4-8, 2131-9, 6-4 #### [facility] CLIA [id number] [address] [place] [address] [place] Iron binding capacity [Mass/ volume] in Serum or PlasmaOrdered By: Valentin Abhyankar on 07-15-2025 Iron binding capacity [Mass/Vol] 255 ug/dL 232-386 [facility] Iron saturation [Mass Fracti on] in Serum or PlasmaOrdered By: Valentin Abhyankar on 07-15-2025 Iron saturation [Mass fraction] 17.6 % 15.0-57.0 [facility] - Chemistry and C hemistry - challengeOrdered By: Valentin Leonard on 07-15-2025 Albumin [Mass/Vol] 3.7 g/dL Low 3.9-4.9 [facility] ALP [Catalytic activity/Vol] 45 U/L 34-123 [facility] ALT [Catalytic activity/Vol] 10 U/L 7-38 [facility] AST [Catalytic activity/Vol] 16 U/L 13-35 [facility] Bilirubin [Mass/Vol] 0.3 mg/dL 0.2-1.3 [facility] Calcium [Mass/Vol] 9.0 mg/dL 8.5-10.2 [facility] Chloride [Moles/Vol] 101 mmol/L 98-107 [facility] CO2 [Moles/Vol] 28 mmol/L 22-30 [facility] Creatinine [Mass/Vol] 1.64 mg/dL High 0.58-0.96 [facility] Ferritin [Mass/Vol] 174.0 ng/mL 14.7-205.1 [facility] Glucose [Mass/Vol] 103 mg/dL High 74-99 [facility] Comment on above: The [place] [employer] (ADA) provides guidance for [...] Standards of Medical Care in Diabetes 2016, [place] [employer]. Diabetes Care. 2016.39(Suppl 1). Iron [Mass/Vol] 45 ug/dL 41-186 [facility] Potassium [Moles/Vol] 4.7 mmol/L 3.7-5.1 [facility] Sodium [Moles/Vol] 139 mmol/L 136-144 [facility] Urea nitrogen [Mass/Vol] 32 mg/dL High 7-21 [facility] - Chemistry and C hemistry - challengeOrdered By: Nathan Htahaway on 07-15-2025 Cobalamin (Vitamin B12) [Mass/Vol] 1457 pg/mL High 232-1245 [facility] - Hematology and Cell countsOrdered By: Valentin Leonard on 07-15-2025 Eosinophils (Bld) [#/Vol] 0.16 10*3/uL <0.46 [facility] Immature granulocytes (Bld) [#/Vol] 0.03 10*3/uL <0.10 [facility] Immature granulocytes/100 WBC (Bld) 0.5 % [facility] Leukocytes [#/volume] correc miguel for nucleated erythrocytes in Blood by Automated counOrdered By: Valentin Leonard on 07-15-2025 WBC corrected for nucl RBC Auto (Bld) [#/Vol] 6.28 k/uL 3.70-11.00 [facility] Lymphocytes Auto (Bld) [#/Vo l]Ordered By: Valentin Leonard on 07-15-2025 Lymphocytes (Bld) [#/Vol] 0.77 10*3/uL Low 1.00-4.00 [facility] Lymphocytes/100 WBC Auto (Bl d)Ordered By: Valentin Leonard on 07-15-2025 Lymphocytes/100 WBC (Bld) 12.3 % [facility] MCH Auto (RBC) [Entitic mass ]Ordered By: Valentin Leonard on 07-15-2025 MCH (RBC) [Entitic mass] 28.8 pg 26.0-34.0 [facility] MCHC Auto (RBC) [Mass/Vol]Or dered By: Valentin Leonard on 07-15-2025 MCHC (RBC) [Mass/Vol] 32.2 g/dL 30.5-36.0 [facility] MCV Auto (RBC) [Entitic vol] Ordered By: Valentin Leonard on 07-15-2025 MCV (RBC) [Entitic vol] 89.3 fL 80.0-100.0 [facility] 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 ANALYSI Son 07-15-2025 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 RESULT Normal [facility] Comment on above: Order Comment: Speci men Type: BLOOD SPECIMEN Ordering Facility: [facility] Address: [address] [place] [address] Result Comment: MYD8 8 L265P MUTATION ANALYSIS Laboratory Accession Number: [id number] Sample Type: Peripheral Blood Result: MYD88 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 Interpretation: The MYD88 missense variant L265P (c.794T>C, p.Lcs141Frn) is present. L265P is highly characteristic of [...] presence or absence of the L265P (c.794T>C, p.Eog311Lge; g.14865199; [id number]) variant (mutation) in MYD88 gene (NM_002468.4) using [...] MYD88 mutations in human lymphoma. Nature 2011. 470(3512):115-9. 2) Joya SL, Anai WagonerJ, DW, James L, Mikey JR, [facility] ED: MYD88 L265P somatic mutation: its usefulness in the differential diagnosis of bone marrow involvement by B-cell lymphoproliferative disorders. Am J Clin Pathol. 2013. 140(3):387-94. 3) Obi SP, Spencer L, Brooks G, et al. MYD88 L265P somatic mutation in Waldenstrom's macroglobulinemia. N Engl J Med. 2012. 367(0)350-33. 4) Gage WagonerQ, Juan J MADDEN, Ariel LL, Tanya K. Toll-like receptors and cancer: MYD88 mutation and inflammation. Front Immunol. 2014 May 28;367(5):1-10. 5) Nery X, Francy W, Maykel Q, et al. MYD88 L265P Mutation in Lymphoid Malignancies. Cancer Res. 2018. 78(73):5885-93. Disclaimer: This test was developed and its performance characteristics determined by [facility]. It has not been cleared or approved by the FDA. [facility] Department is regulated under CLIA as certified to perform high-complexity testing. This test is used for clinical purposes. It should not be regarded as investigational or for research. Test performed at [facility], [address] [place] [address]. CLIA Number: [id number] Interpretation performed by Natalee Bolanos, PhD, HCLD Performed By: #### 1 5061-5 #### [facility] CLIA [id number] [address] [place] [address] [place] [address] [place] Monocytes Auto (Bld) [#/Vol] Ordered By: Valentin Abhyankar on 07-15-2025 Monocytes (Bld) [#/Vol] 0.65 10*3/uL <0.87 [facility] Monocytes/100 WBC Auto (Bld) Ordered By: Valentin Abhyankar on 07-15-2025 Monocytes/100 WBC (Bld) 10.4 % [facility] Neutrophils Auto (Bld) [#/Vo l]Ordered By: Valentin Abhyankar on 07-15-2025 Neutrophils (Bld) [#/Vol] 4.62 10*3/uL 1.45-7.50 [facility] Neutrophils/100 WBC Auto (Bl d)Ordered By: Valentin Abhyankar on 07-15-2025 Neutrophils/100 WBC (Bld) 73.5 % [facility] No Panel InformationOrdered By: Valentin Abhyankar on 07-15-2025 Folate 17.5 ng/mL >4.7 [facility] MYD88 L265P Mutation See comment Fir [facility] Comment on above: 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 ANALYSISLaboratory Accession Number: [id number] Type: Peripheral BloodResult:MYD88 L265P (c.794T>C, p.Dlh818Lts) detected with variant allelefraction (vaf) 0.98%.Interpretation:The MYD88 missense variant L265P (c.794T>C, p.Rcc126Uim) is present.L265P is highly characteristic of lymphoplasmacyticlymphoma/Waldenstrom's macroglobulinemia, where it is found in >90% ofcases. This abnormality may also be found in diffuse large B-celllymphomas and in a small percentage of other small B-cell neoplasmsincluding chronic lymphocytic leukemia and marginal zone lymphomas.Clinical and pathologic correlation is suggested.Methodology:DNA extracted from the specimen is interrogated for the presence orabsence of the L265P (c.794T>C, p.Lld131Ses; g.82184790; [id number])variant (mutation) in MYD88 gene (NM_002468.4) using droplet digitalpolymerase chain reaction (PCR). Droplet digital PCR includespartitioning of DNA into droplets, droplet independent PCR,interrogation using allele specific hydrolysis probes, and analysis ofdroplets using Poisson distribution to calculate the copy number ofMYD88 L265P and wild-type MYD88. The reference genome used fuBXPz57/hg38.Limitations:This test is designed to detect the L265P variant in the MYD88 gene.Uncommon variants or single nucleotide polymorphisms may affectbinding of probes or primers and may rarely result in false negative,false positive, or indeterminate results. Other variants in MYD88 willnot be identified by this test. The lower limit of detection of thisassay is approximately 0.5% variant allele fraction (vaf) for rovPFG71 L265P variant. Although vaf is provided for reference, thisvalue should be interpreted with caution as this test is intended forqualitative purposes and is not validated as a quantitative test. QtrFVE51 L265P result cannot be used on a standalone basis for diagnosisof lymphoplasmacytic lymphoma and needs to be considered in thecontext of clinical and morphologic presentation.References:1) Nikkie LOPEZ, Cristhian ADAMS, Hannah R, et al. Oncogenically active SBZ27cjwgrvltj in human lymphoma. Nature 2011. 470(2017):115-9.2) Joya RIVAS, Anai WagonerJ, Warden INFANTE, James L, Mikey Nash [facility] ED: [id number] somatic mutation: its usefulness in the differential diagnosisof bone marrow involvement by B-cell lymphoproliferative disorders. AmJ Clin Pathol. 2013. 140(3):387-94.3) Obi SP, Spencer L, Todd G, et al. 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 N Engl J Med. 2012. 367(2)431-33.4) Almonte JQ, Juan J YS, Ariel LL, Tanya K. Toll-like receptorsand cancer: MYD88 mutation and inflammation. Front Immunol. 2014 ;367(5):1-10.5) Gabriel X, Li W, Maykel Q, et al. 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 Cancer Res. 2018. 78(10):7626-21.Disclaimer:This test was developed and its performance characteristics determinedby [facility]. Ithas not been cleared or approved by the FDA. [facility] is regulated under CLIAas certified to perform high-complexity testing. This test is used forclinical purposes. It should not be regarded as investigational or forresearch.Test performed at [facility], [address] [place] [address]. CLIA Number: [id number] performed by Natalee Bolanos, PhD, [facility] Nucleated RBC Auto (Bld) [#/ Vol]Ordered By: Valentin Leonard on 07-15-2025 Nucleated RBC (Bld) [#/Vol] 10*3/uL <0.01 [facility] Nucleated erythrocytes [Pres ence] in Blood by Automated countOrdered By: Valentin Leonard on 07-15-2025 Nucleated RBC Auto Ql (Bld) 0.0 /100{WBC} [facility] Platelet mean volume Auto (B ld) [Entitic vol]Ordered By: Valentin Leonard on 07-15-2025 Platelet mean volume (Bld) [Entitic vol] 9.9 fL 9.0-12.7 [facility] Platelets Auto (Bld) [#/Vol] Ordered By: Valentin Leonard on 07-15-2025 Platelets (Bld) [#/Vol] 295 10*3/uL 150-400 [facility] Protein [Mass/volume] in Ser um or PlasmaOrdered By: Valentin Leonard on 07-15-2025 Protein [Mass/Vol] 5.9 g/dL Low 6.3-8.0 [facility] RBC Auto (Bld) [#/Vol]Ordere d By: Valentin Leonard on 07-15-2025 RBC (Bld) [#/Vol] 3.09 10*6/uL Low 3.90-5.20 [facility] Serum or plasma anion gap de terminationOrdered By: Valentin Leonard on 07-15-2025 Anion gap [Moles/Vol] 10 mmol/L 8-15 [facility] Serum or plasma erythropoiet in (EPO) measurement (units/volume)Ordered By: Valentin Leonard on 07-15-2025 Erythropoietin (EPO) Qn 26.4 mIU/mL High 2.6-18.5 [facility] Vit B12 SerPl-mCncon 025 Cobalamin (Vitamin B12) [Mass/Vol] 1457 pg/mL High 232-1245 [facility] Comment on above: Order Comment: Speci men Type: BLOOD SPECIMEN Ordering Facility: [facility] Address: [address] [place] [address] Performed By: #### 5 0190-8, 2284-8, 2132-9, 2276-4 #### [facility] CLIA [id number] [address] [place] [address] [place] CNPDena 07-10-2025 CNPN Telephone (NCCAP) -------- LASHAUN JOAQUIN ([id number]) 1940 F Date Time Provider Department 07/10/25 [...] Hathaway's office Please return the call at [phone] KERRY Menendez Felicia, RN 07/10/2025 12:07 PM [...] Status:Closed by YOLANDA COBIAN on 07/10/25 Normal [facility] Albumin [Mass/volume] in Ser um or PlasmaOrdered By: Nathan Hathaway on 07-08-2025 Albumin [Mass/Vol] 3.33 g/dL Low 3.43-5.41 [facility] CBC W Auto Differential pane l (Bld)on 07-08-2025 Basophils (Bld) [#/Vol] 0.05 10*3/uL Normal <0.11 [facility] Comment on above: Order Comment: Speci men Type: BLOOD SPECIMEN Ordering Facility: [facility] Address: [address] [place] [address] Performed By: #### 1 5061-5 #### [facility] CLIA [id number] [address] [place] [address] [place] Basophils/100 WBC (Bld) 0.9 % Normal [facility] Comment on above: Order Comment: Speci men Type: BLOOD SPECIMEN Ordering Facility: [facility] Address: [address] [place] [address] Performed By: #### 1 5061-5 #### [facility] CLIA [id number] [address] [place] [address] [place] Differential cell count method Nom (Bld) Auto Normal [facility] Comment on above: Order Comment: Speci men Type: BLOOD SPECIMEN Ordering Facility: [facility] Address: [address] [place] [address] Performed By: #### 1 5061-5 #### [facility] CLIA [id number] [address] [place] [address] [place] Eosinophils (Bld) [#/Vol] 0.18 10*3/uL Normal <0.46 [facility] Comment on above: Order Comment: Speci men Type: BLOOD SPECIMEN Ordering Facility: [facility] Address: [address] [place] [address] Performed By: #### 1 5061-5 #### [facility] CLIA [id number] [address] [place] [address] [place] Eosinophils/100 WBC (Bld) 3.3 % Normal [facility] Comment on above: Order Comment: Speci men Type: BLOOD SPECIMEN Ordering Facility: [facility] Address: [address] [place] [address] Performed By: #### 1 5061-5 #### [facility] CLIA [id number] [address] [place] [address] [place] Erythrocyte distribution width (RBC) [Ratio] 13.5 % Normal 11.5-15.0 [facility] Comment on above: Order Comment: Speci men Type: BLOOD SPECIMEN Ordering Facility: [facility] Address: [address] [place] [address] Performed By: #### 1 5061-5 #### [facility] CLIA [id number] [address] [place] [address] [place] Hematocrit (Bld) [Volume fraction] 27.8 % Low 36.0-46.0 [facility] Comment on above: Order Comment: Speci men Type: BLOOD SPECIMEN Ordering Facility: [facility] Address: [address] [place] [address] Performed By: #### 1 5061-5 #### [facility] CLIA [id number] [address] [place] [address] [place] Hemoglobin (Bld) [Mass/Vol] 9.0 g/dL Low 11.5-15.5 [facility] Comment on above: Order Comment: Speci men Type: BLOOD SPECIMEN Ordering Facility: [facility] Address: [address] [place] [address] Performed By: #### 1 5061-5 #### [facility] CLIA [id number] [address] [place] [address] [place] Immature granulocytes (Bld) [#/Vol] 0.03 10*3/uL Normal <0.10 [facility] Comment on above: Order Comment: Speci men Type: BLOOD SPECIMEN Ordering Facility: [facility] Address: [address] [place] [address] Performed By: #### 1 5061-5 #### [facility] CLIA [id number] [address] [place] [address] [place] Immature granulocytes/100 WBC (Bld) 0.5 % Normal [facility] Comment on above: Order Comment: Speci men Type: BLOOD SPECIMEN Ordering Facility: [facility] Address: [address] [place] [address] Performed By: #### 1 5061-5 #### [facility] CLIA [id number] [address] [place] [address] [place] Lymphocytes (Bld) [#/Vol] 0.87 10*3/uL Low 1.00-4.00 [facility] Comment on above: Order Comment: Speci men Type: BLOOD SPECIMEN Ordering Facility: [facility] Address: [address] [place] [address] Performed By: #### 1 5061-5 #### [facility] CLIA [id number] [address] [place] [address] [place] Lymphocytes/100 WBC (Bld) 15.9 % Normal [facility] Comment on above: Order Comment: Speci men Type: BLOOD SPECIMEN Ordering Facility: [facility] Address: [address] [place] [address] Performed By: #### 1 5061-5 #### [facility] CLIA [id number] [address] [place] [address] [place] MCH (RBC) [Entitic mass] 28.8 pg Normal 26.0-34.0 [facility] Comment on above: Order Comment: Speci men Type: BLOOD SPECIMEN Ordering Facility: [facility] Address: [address] [place] [address] Performed By: #### 1 5061-5 #### [facility] CLIA [id number] [address] [place] [address] [place] MCHC (RBC) [Mass/Vol] 32.4 g/dL Normal 30.5-36.0 [facility] Comment on above: Order Comment: Speci men Type: BLOOD SPECIMEN Ordering Facility: [facility] Address: [address] [place] [address] Performed By: #### 1 5061-5 #### [facility] CLIA [id number] [address] [place] [address] [place] MCV (RBC) [Entitic vol] 89.1 fL Normal 80.0-100.0 [facility] Comment on above: Order Comment: Speci men Type: BLOOD SPECIMEN Ordering Facility: [facility] Address: [address] [place] [address] Performed By: #### 1 5061-5 #### [facility] CLIA [id number] [address] [place] [address] [place] Monocytes (Bld) [#/Vol] 0.61 10*3/uL Normal <0.87 [facility] Comment on above: Order Comment: Speci men Type: BLOOD SPECIMEN Ordering Facility: [facility] Address: [address] [place] [address] Performed By: #### 1 5061-5 #### [facility] CLIA [id number] [address] [place] [address] [place] Monocytes/100 WBC (Bld) 11.2 % Normal [facility] Comment on above: Order Comment: Speci men Type: BLOOD SPECIMEN Ordering Facility: [facility] Address: [address] [place] [address] Performed By: #### 1 5061-5 #### [facility] CLIA [id number] [address] [place] [address] [place] Neutrophils (Bld) [#/Vol] 3.72 10*3/uL Normal 1.45-7.50 [facility] Comment on above: Order Comment: Speci men Type: BLOOD SPECIMEN Ordering Facility: [facility] Address: [address] [place] [address] Performed By: #### 1 5061-5 #### [facility] CLIA [id number] [address] [place] [address] [place] Neutrophils/100 WBC (Bld) 68.2 % Normal [facility] Comment on above: Order Comment: Speci men Type: BLOOD SPECIMEN Ordering Facility: [facility] Address: [address] [place] [address] Performed By: #### 1 5061-5 #### [facility] CLIA [id number] [address] [place] [address] [place] Nucleated RBC (Bld) [#/Vol] 10*3/uL Normal <0.01 [facility] Comment on above: Order Comment: Speci men Type: BLOOD SPECIMEN Ordering Facility: [facility] Address: [address] [place] [address] Performed By: #### 1 5061-5 #### [facility] CLIA [id number] [address] [place] [address] [place] Nucleated RBC/100 WBC (Bld) [Ratio] 0.0 /100 WBC Normal [facility] Comment on above: Order Comment: Speci men Type: BLOOD SPECIMEN Ordering Facility: [facility] Address: [address] [place] [address] Performed By: #### 1 5061-5 #### [facility] CLIA [id number] [address] [place] [address] [place] Platelet mean volume (Bld) [Entitic vol] 9.5 fL Normal 9.0-12.7 [facility] Comment on above: Order Comment: Speci men Type: BLOOD SPECIMEN Ordering Facility: [facility] Address: [address] [place] [address] Performed By: #### 1 5061-5 #### [facility] CLIA [id number] [address] [place] [address] [place] Platelets (Bld) [#/Vol] 275 10*3/uL Normal 150-400 [facility] Comment on above: Order Comment: Speci men Type: BLOOD SPECIMEN Ordering Facility: [facility] Address: [address] [place] [address] Performed By: #### 1 5061-5 #### [facility] CLIA [id number] [address] [place] [address] [place] RBC (Bld) [#/Vol] 3.12 10*6/uL Low 3.90-5.20 [facility] Comment on above: Order Comment: Speci men Type: BLOOD SPECIMEN Ordering Facility: [facility] Address: [address] [place] [address] Performed By: #### 1 5061-5 #### [facility] CLIA [id number] [address] [place] [address] [place] WBC (Bld) [#/Vol] 5.46 10*3/uL Normal 3.70-11.00 [facility] Comment on above: Order Comment: Speci men Type: BLOOD SPECIMEN Ordering Facility: [facility] Address: [address] [place] [address] Performed By: #### 1 5061-5 #### [facility] CLIA [id number] [address] [place] [address] [place] CNOVSPon 07-08-2025 CNOVSP Visit (SP) Office ([facility]) -------- JEMALEMELIAN ([id number]) 1940 F Date Time Provider Department 07/08/25 [...] HISTORY Proble (more content not included)... Normal [facility] LASHAUN JOAQUIN ([id number]) 1940 F Date Time Provider Department 07/08/25 PAOLO CASILLAS [facility] [place] During your visit today, we recorded the following information about you: Kayla Arriaga 07/08/2025 11:24 AM Signed Please call Her daughter Marianna with today's lab results. [phone] Yolanda Cobian RN 07/10/2025 9:17 AM Signed [...] Status:Closed by YOLANDA COBIAN on 07/10/25 Normal [facility] Comprehensive metabolic 2000 panelon 07-08-2025 Albumin [Mass/Vol] 3.6 g/dL Low 3.9-4.9 [facility] Comment on above: Order Comment: Speci men Type: BLOOD SPECIMEN Ordering Facility: [facility] Address: [address] [place] [address] Performed By: #### 2 4323-8 #### [facility] CLIA [id number] [address] [place] [address] [place] ALP [Catalytic activity/Vol] 48 U/L Normal 34-123 [facility] Comment on above: Order Comment: Speci men Type: BLOOD SPECIMEN Ordering Facility: [facility] Address: [address] [place] [address] Performed By: #### 2 4323-8 #### [facility] CLIA [id number] [address] [place] [address] [place] ALT [Catalytic activity/Vol] 13 U/L Normal 7-38 [facility] Comment on above: Order Comment: Speci men Type: BLOOD SPECIMEN Ordering Facility: [facility] Address: [address] [place] [address] Performed By: #### 2 4323-8 #### [facility] CLIA [id number] [address] [place] [address] [place] Anion gap [Moles/Vol] 11 mmol/L Normal 8-15 [facility] Comment on above: Order Comment: Speci men Type: BLOOD SPECIMEN Ordering Facility: [facility] Address: [address] [place] [address] Performed By: #### 2 4323-8 #### [facility] CLIA [id number] [address] [place] [address] [place] AST [Catalytic activity/Vol] 22 U/L Normal 13-35 [facility] Comment on above: Order Comment: Speci men Type: BLOOD SPECIMEN Ordering Facility: [facility] Address: [address] [place] [address] Performed By: #### 2 4323-8 #### [facility] CLIA [id number] [address] [place] [address] [place] Bilirubin [Mass/Vol] 0.3 mg/dL Normal 0.2-1.3 [facility] Comment on above: Order Comment: Speci men Type: BLOOD SPECIMEN Ordering Facility: [facility] Address: [address] [place] [address] Performed By: #### 2 4323-8 #### [facility] CLIA [id number] [address] [place] [address] [place] Calcium [Mass/Vol] 8.9 mg/dL Normal 8.5-10.2 [facility] Comment on above: Order Comment: Speci men Type: BLOOD SPECIMEN Ordering Facility: [facility] Address: [address] [place] [address] Performed By: #### 2 4323-8 #### [facility] CLIA [id number] [address] [place] [address] [place] Chloride [Moles/Vol] 106 mmol/L Normal 98-107 [facility] Comment on above: Order Comment: Speci men Type: BLOOD SPECIMEN Ordering Facility: [facility] Address: [address] [place] [address] Performed By: #### 2 4323-8 #### [facility] CLIA [id number] [address] [place] [address] [place] CO2 [Moles/Vol] 24 mmol/L Normal 22-30 [facility] Comment on above: Order Comment: Speci men Type: BLOOD SPECIMEN Ordering Facility: [facility] Address: [address] [place] [address] Performed By: #### 2 4323-8 #### [facility] CLIA [id number] [address] [place] [address] [place] Creatinine [Mass/Vol] 1.65 mg/dL High 0.58-0.96 [facility] Comment on above: Order Comment: Preet patino Type: BLOOD SPECIMEN Ordering Facility: [facility] Address: [address] [place] [address] Performed By: #### 2 4323-8 #### [facility] CLIA [id number] [address] [place] [address] [place] eGFRcr SerPlBld CKD-EPI 2020 31 mL/min/1.73m??? Low >=60 [facility] Comment on above: Order Comment: Preet patino Type: BLOOD SPECIMEN Ordering Facility: [facility] Address: [address] [place] [address] Result Comment: Shoshana mated Glomerular Filtration Rate [...] GFR. Performed By: #### 2 4323-8 #### [facility] CLIA [id number] [address] [place] [address] [place] Glucose [Mass/Vol] 100 mg/dL High 74-99 [facility] Comment on above: Order Comment: Preet patino Type: BLOOD SPECIMEN Ordering Facility: [facility] Address: [address] [place] [address] Result Comment: The [place] [employer] (ADA) provides guidance for cutoff [...] Standards of Medical Care in Diabetes 2016, [place] [employer]. Diabetes Care. 2016.39(Suppl 1). Performed By: #### 2 4323-8 #### [facility] CLIA [id number] [address] [place] [address] [place] Potassium [Moles/Vol] 5.3 mmol/L High 3.7-5.1 [facility] Comment on above: Order Comment: Speci men Type: BLOOD SPECIMEN Ordering Facility: [facility] Address: [address] [place] [address] Performed By: #### 2 4323-8 #### [facility] CLIA [id number] [address] [place] [address] [place] Protein [Mass/Vol] 5.8 g/dL Low 6.3-8.0 [facility] Comment on above: Order Comment: Sarathi men Type: BLOOD SPECIMEN Ordering Facility: [facility] Address: [address] [place] [address] Performed By: #### 2 4323-8 #### [facility] CLIA [id number] [address] [place] [address] [place] Sodium [Moles/Vol] 141 mmol/L Normal 136-144 [facility] Comment on above: Order Comment: Speci men Type: BLOOD SPECIMEN Ordering Facility: [facility] Address: [address] [place] [address] Performed By: #### 2 4323-8 #### [facility] CLIA [id number] [address] [place], [place] [address] [place] Urea nitrogen [Mass/Vol] 27 mg/dL High 7-21 [facility] Comment on above: Order Comment: Speci men Type: BLOOD SPECIMEN Ordering Facility: [facility] Address: [address] [place] [address] Performed By: #### 2 4323-8 #### [facility] CLIA [id number] [address] [place] [address] [place] Glomerular filtration rate [ Volume Rate/Area] in Serum, Plasma or Blood by CreatinineOrdered By: Nathan Hathaway on 07-08-2025 Glomerular filtration rate [Volume Rate/Area] in Serum, Plasma or Blood by Creatinine 31 mL/min/1.73m??? Low >=60 [facility] Comment on above: Estimated Glomerular Filtration [...] monoclonal gammopathy. Clinical correlation is necessary. Normal [facility] Comment on above: Order Comment: Speci men Type: BLOOD SPECIMEN Ordering Facility: [facility] Address: [address] [place] [address] Performed By: #### 1 5061-5 #### [facility] CLIA [id number] [address] [place] [address] [place] MPA RESULT A poorly defined reg ion of restricted mobility is present that may represent an M protein. Abnormal No M protein is identified. [facility] Comment on above: Order Comment: Speci men Type: BLOOD SPECIMEN Ordering Facility: [facility] Address: [address] [place] [address] Performed By: #### 1 5061-5 #### [facility] CLIA [id number] [address] [place] [address] [place] STAFF REVIEW (MPA) Reviewed by Dr. Matty David MD Normal [facility] Comment on above: Order Comment: Speci men Type: BLOOD SPECIMEN Ordering Facility: [facility] Address: [address] [place] [address] Performed By: #### 1 5061-5 #### [facility] CLIA [id number] [address] [place] [address] [place] IMMUNOGLOBULINS,IGG,IGA,IGMo n 07-08-2025 IgA [Mass/Vol] 64 mg/dL Low 70-400 [facility] Comment on above: Order Comment: Speci men Type: BLOOD SPECIMEN Ordering Facility: [facility] Address: [address] [place] [address] Performed By: #### S ERIMM #### [facility] CLIA [id number] [address] [place] [address] [place] IgG [Mass/Vol] 280 mg/dL Low 700-1600 [facility] Comment on above: Order Comment: Speci men Type: BLOOD SPECIMEN Ordering Facility: [facility] Address: [address] [place] [address] Performed By: #### S ERIMM #### [facility] CLIA [id number] [address] [place] [address] [place] IgM [Mass/Vol] 317 mg/dL High 40-230 [facility] Comment on above: Order Comment: Speci men Type: BLOOD SPECIMEN Ordering Facility: [facility] Address: [address] [place] [address] Performed By: #### S ERIMM #### [facility] CLIA [id number] [address] [place], [place] [address] [place] IgA [Mass/volume] in Serum o r PlasmaOrdered By: Fanny Bedoya on 07-08-2025 IgA [Mass/Vol] 64 mg/dL Low 70-400 [facility] IgG [Mass/volume] in Serum o r PlasmaOrdered By: Fanny Alvarengaod on 07-08-2025 IgG [Mass/Vol] 280 mg/dL Low 700-1600 [facility] IgM [Mass/volume] in Serum o r PlasmaOrdered By: Fanny Ethan on 07-08-2025 IgM [Mass/Vol] 317 mg/dL High 40-230 [facility] Immunoglobulin light chains. kappa.free [Mass/volume] in SerumOrdered By: Nathan Hathaway on 07-08-2025 Immunoglobulin light chains.kappa.free (S) [Mass/Vol] 300.9 mg/L High 3.3-19.4 [facility] Comment on above: Rarely, increased se rum free light chains levels may not be detected or accurately quantified due to prozone phenomenon or in high viscosity samples using this immunoturbidimetric assay. Correlation with other laboratory results and clinical findings is recommended. The [place] Free Light Chain was performed using the Binding Site Optilite immunoturbidimetric method. Result obtained with different assay methods or kits cannot be used interchangeably. Immunoglobulin light chains. kappa.free/Immunoglobulin light chains.lambda.free [MassOrdered By: Nathan Hathaway on 07-08-2025 Immunoglobulin light chains.kappa.free/Immu noglobulin light chains.lambda.free (S) [Mass ratio] 12.64 High 0.26-1.65 [facility] Immunoglobulin light chains. lambda.free [Mass/volume] in Serum or PlasmaOrdered By: Nathan Hathaway on 07-08-2025 Immunoglobulin light chains.lambda.free [Mass/Vol] 23.8 mg/L 5.7-26.3 [facility] Comment on above: Rarely, increased se [...] chains.kappa.free (S) [Mass/Vol] 300.9 mg/L High 3.3-19.4 [facility] Comment on above: Order Comment: Speci carey Type: BLOOD SPECIMEN Ordering Facility: [facility] Address: [address] [place] [address] Result Comment: Rare ly, increased serum free light chains levels may not be detected or accurately quantified due to prozone phenomenon or in high viscosity samples using this immunoturbidimetric assay. Correlation with other laboratory results and clinical findings is recommended. The [place] Free Light Chain was performed using the Binding Site Optilite immunoturbidimetric method. Result obtained with different assay methods or kits cannot be used interchangeably. Performed By: #### K LFRS #### [facility] CLIA [id number] [address] [place] [address] [place] Immunoglobulin light chains.kappa/Immunoglo bulin light chains.lambda (S) [Mass ratio] 12.64 High 0.26-1.65 [facility] Comment on above: Order Comment: Speci [facility] Type: BLOOD SPECIMEN Ordering Facility: [facility] Address: [address] [place] [address] Performed By: #### K LFRS #### [facility] CLIA [id number] [address] [place] [address] [place] Immunoglobulin light chains.lambda.free [Mass/Vol] 23.8 mg/L Normal 5.7-26.3 [facility] Comment on above: Order Comment: [facility] Type: BLOOD SPECIMEN Ordering Facility: [facility] Address: [address] [place] [address] Result Comment: Rare ly, increased serum free [...] Performed By: #### K LFRS #### [facility] CLIA [id number] [facility] [place] [address] [place] Laboratory - Chemistry and C hemistry - challengeOrdered By: Nathan Hathaway on 07-08-2025 Albumin [Mass/Vol] 3.6 g/dL Low 3.9-4.9 [facility] ALP [Catalytic activity/Vol] 48 U/L 34-123 [facility] ALT [Catalytic activity/Vol] 13 U/L 7-38 [facility] AST [Catalytic activity/Vol] 22 U/L 13-35 [facility] Bilirubin [Mass/Vol] 0.3 mg/dL 0.2-1.3 [facility] Calcium [Mass/Vol] 8.9 mg/dL 8.5-10.2 [facility] Chloride [Moles/Vol] 106 mmol/L 98-107 [facility] CO2 [Moles/Vol] 24 mmol/L 22-30 [facility] Creatinine [Mass/Vol] 1.65 mg/dL High 0.58-0.96 [facility] Glucose [Mass/Vol] 100 mg/dL High 74-99 [facility] Comment on above: The [place] [employer] [place] [employer] (ADA) provides guidance for [...] Standards of Medical Care in Diabetes 2016, [place] [employer]. Diabetes Care. 2016.39(Suppl 1). Potassium [Moles/Vol] 5.3 mmol/L High 3.7-5.1 [facility] Protein [Mass/Vol] 0.00 g/dL <=0.00 [facility] Sodium [Moles/Vol] 141 mmol/L 136-144 [facility] Urea nitrogen [Mass/Vol] 27 mg/dL High 7-21 [facility] No Panel InformationOrdered By: Nathan Hathaway on 07-08-2025 Immunofixation Interpretation [facility] Leuk/Lymph Sign Pathologist (Misc) Reviewed by Dr. Jennifer David MD [facility] Miscellaneous Test 6 See comment Fir [facility] Comment on above: Not Applicable. Miscellaneous Test Comment Reviewed by Dr. Jennifer David MD [facility] Protein Electrophoresis Interpret [facility] Protein Electrophoresis Note No definitive M protein is identified on protein electrophoresis. No definitive M protein is identified on protein electrophor esis. [facility] Serum Immunofixation Abnormal No M protein is identified. [facility] PROTEIN ELECTROPHORESIS SERU M (P)on 07-08-2025 Albumin [Mass/Vol] 3.33 g/dL Low 3.43-5.41 [facility] Comment on above: Order Comment: Speci men Type: BLOOD SPECIMEN Ordering Facility: [facility] Address: [address] [place] [address] Performed By: #### 1 5061-5 #### [facility] CLIA [id number] [address] [place] [address] [place] Alpha 1 globulin Elph [Mass/Vol] 0.42 g/dL Normal 0.18-0.43 [facility] Comment on above: Order Comment: Speci men Type: BLOOD SPECIMEN Ordering Facility: [facility] Address: [address] [place] [address] Performed By: #### 1 5061-5 #### [facility] CLIA [id number] [address] [place] [address] [place] Alpha 2 globulin Elph [Mass/Vol] 0.86 g/dL Normal 0.42-0.98 [facility] Comment on above: Order Comment: Speci men Type: BLOOD SPECIMEN Ordering Facility: [facility] Address: [address] [place] [address] Performed By: #### 1 5061-5 #### [facility] CLIA [id number] [address] [place] [address] [place] Beta globulin Elph [Mass/Vol] 0.53 g/dL Low 0.61-1.17 [facility] Comment on above: Order Comment: Speci men Type: BLOOD SPECIMEN Ordering Facility: [facility] Address: [address] [place] [address] Performed By: #### 1 5061-5 #### [facility] CLIA [id number] [address] [place] [address] [place] Gamma globulin Elph [Mass/Vol] 0.37 g/dL Low 0.53-1.51 [facility] Comment on above: Order Comment: Speci men Type: BLOOD SPECIMEN Ordering Facility: [facility] Address: [address] [place] [address] Performed By: #### 1 5061-5 #### [facility] CLIA [id number] [address] [place] [address] [place] [facility] INTERPRETATION COMMENT FOR PROTEIN ELECTROPHORESIS Hypogammaglobulinemia is present, which can be seen in the setting of monoclonal gammopathy. If clinically indicated, monoclonal protein analysis and serum free light chain analysis are suggested to evaluate further for monoclonal gammopathy. Normal [facility] Comment on above: Order Comment: Preet patino Type: BLOOD SPECIMEN Ordering Facility: [facility] Address: [address] [place] [address] Performed By: #### 1 5061-5 #### [facility] CLIA [id number] [address] [place] [address] [place] M-PROTEIN LOCATION Normal [facility] Comment on above: Order Comment: Sarathi carey Type: BLOOD SPECIMEN Ordering Facility: [facility] Address: [address] [place] [address] Result Comment: Not Applicable. Performed By: #### 1 5061-5 #### [facility] CLIA [id number] [address] [place] [address] [place] Protein Fractions [Interp] No definitive M protein is identified on protein electrophoresis. Normal No definitive M protein is identified on protein electrophor esis. [facility] Comment on above: Order Comment: Speci men Type: BLOOD SPECIMEN Ordering Facility: [facility] Address: [address] [place] [address] Performed By: #### 1 5061-5 #### [facility] CLIA [id number] [address] [place] [address] [place] Protein.monoclonal Elph [Mass/Vol] 0.00 g/dL Normal <=0.00 [facility] Comment on above: Order Comment: Speci men Type: BLOOD SPECIMEN Ordering Facility: [facility] Address: [address] [place] [address] Performed By: #### 1 5061-5 #### [facility] CLIA [id number] [address] [place] [address] [place] SPE STAFF REVIEW Reviewed by Dr. Matty David MD [facility] Comment on above: Order Comment: Speci men Type: BLOOD SPECIMEN Ordering Facility: [facility] Address: [address] [place] [address] Performed By: #### 1 5061-5 #### [facility] CLIA [id number] [address] [place] [address] [place] Prot SerPl-mCncon 07-08-2025 Protein [Mass/Vol] 5.5 g/dL Low 6.3-8.0 [facility] Comment on above: Order Comment: Speci men Type: BLOOD SPECIMEN Ordering Facility: [facility] Address: [address] [place] [address] Performed By: #### 2 885-2 #### [facility] CLIA [id number] [address] [place] [address] [place] Protein [Mass/volume] in Ser um or PlasmaOrdered By: Fanny Bedoya on 07-08-2025 Protein [Mass/Vol] 5.5 g/dL Low 6.3-8.0 [facility] Serum or plasma alpha 1 glob ulin measurement by electrophoresis (mass/volume)Ordered By: Nathan Hathaway on 07-08-2025 Alpha 1 globulin Elph [Mass/Vol] 0.42 g/dL 0.18-0.43 [facility] Serum or plasma alpha 2 glob ulin measurement by electrophoresis (mass/volume)Ordered By: Nathan Hathaway on 07-08-2025 Alpha 2 globulin Elph [Mass/Vol] 0.86 g/dL 0.42-0.98 [facility] Serum or plasma anion gap de terminationOrdered By: Nathan Hathaway on 07-08-2025 Anion gap [Moles/Vol] 11 mmol/L 8-15 [facility] Serum or plasma beta globuli n measurement by electrophoresis (mass/volume)Ordered By: Nathan Hathaway on 07-08-2025 Beta globulin Elph [Mass/Vol] 0.53 g/dL Low 0.61-1.17 [facility] Serum or plasma gamma globul in measurement by electrophoresis (mass/volume)Ordered By: Nathan Hathaway on 07-08-2025 Gamma globulin Elph [Mass/Vol] 0.37 g/dL Low 0.53-1.51 [facility] CNPNon 07-06-2025 DANIELAN Telephone (JONATHON) -------- LASHAUN JOAQUIN ([id number]) 1940 F Date Time Provider Department 07/06/25 [...] Date Reviewed: 11/07/2023 Reviewed by: Paolo Casillas APRN.PERFECT BIND MACHINE OPERATOR - Fully Assessed Reason for Visit: Lab Orders [1688] Cmt: nt Primary Visit Diagnosis:Abnormal SPEP [R77.8] Order(s):COMPLETE BLOOD COUNT AND DIFFERENTIAL [SQCBCDIF] Order #: [id number] FUTURE COMPREHENSIVE METABOLIC PANEL [SQCMP] Order #: [id number] FUTURE PROTEIN ELECTROPHORESIS SERUM W/INTERP [SQSEPG] Order #: [id number] FUTURE MONOCLONAL PROTEIN, SERUM (BLOOD) [SQSERMPA] Order #: [id number] FUTURE Prescriptions as of 07/06/2025 - carvedilol [...] Status:Closed by FANNY BEDOYA on 07/06/25 Normal [facility] Microalbumin [Mass/volume] i n UrineOrdered By: Nathan Hathaway on 06-24-2025 Albumin DL <= 20 mg/L (U) [Mass/Vol] 20.1 mg/dL <=30.0 [facility] No Panel InformationOrdered By: Nathan Hathaway on 06-24-2025 Urine Random Creatinine 84.52 mg/dL 20.00-300.0 0 [facility] Urine microalbumin/creatinin e mass ratioOrdered By: Nathan Hathaway on 06-24-2025 Albumin/Creatinine DL <= 20 mg/L (U) [Mass ratio] 237.8 mg/g High 0.0-29.9 [facility] Comment on above: NO MICROALBUMINURIA 0-29 MG/GCLINICAL MICROALBUMINURIA 30-300 MG/GMACROALBUMINURIA >300 MG/G Albumin [Mass/volume] in Ser um or PlasmaOrdered By: Nathan Hathaway on 06-23-2025 Albumin [Mass/Vol] 3.2 g/dL 2.9-4.4 [facility] Basophils Auto (Bld) [#/Vol] Ordered By: Nathan Hathaway on 06-23-2025 Basophils (Bld) [#/Vol] 0.0 10 3/uL 0.0-0.1 [facility] Basophils/100 WBC Auto (Bld) Ordered By: Nathan Hathaway on 06-23-2025 Basophils/100 WBC (Bld) 0.7 % 0.2-2.0 [facility] Cholesterol in LDL Calc [Mas s/Vol]Ordered By: Nathan Hathaway on 06-23-2025 Cholesterol in LDL [Mass/Vol] 60.2 mg/dL [facility] Comment on above: <100 mg/dl [id number] 0-129 mg/dl NEAR OR ABOVE [id number] mg/dl BORDERLINE [id number] mg/dl HIGH>190 mg/dl VERY HIGH Cholesterol in VLDL Calc [Ma ss/Vol]Ordered By: Nathan Hathaway on 06-23-2025 Cholesterol in VLDL [Mass/Vol] 17.8 mg/dL [facility] Eosinophils/100 WBC Auto (Bl d)Ordered By: Nathan Hathaway on 06-23-2025 Eosinophils/100 WBC (Bld) 2.7 % 0.9-7.0 [facility] Erythrocyte distribution wid th Auto (RBC) [Ratio]Ordered By: Nathan Hathaway on 06-23-2025 Erythrocyte distribution width (RBC) [Ratio] 13.8 % 11.0-15.0 [facility] Globulin Calc (S) [Mass/Vol] Ordered By: Nathan Hathaway 06-23-2025 Globulin (S) [Mass/Vol] 3.3 g/dL [facility] Glomerular filtration rate ( GFR) estimation in non- AmericanOrdered By: Nathan Hathaway on 06-23-2025 GFR/1.73 sq M.predicted among non-blacks MDRD (S/P/Bld) [Vol rate/Area] 35 mL/min/{1.73_m2} Low >=60 mL/min/1.73 m 2 [facility] Hematocrit Auto (Bld) [Volum e fraction]Ordered By: Nathan Hathaway 06-23-2025 Hematocrit (Bld) [Volume fraction] 28.3 % Low 36.0-48.0 [facility] Hemoglobin [Mass/volume] in BloodOrdered By: Nathan Hathaway 06-23-2025 Hemoglobin (Bld) [Mass/Vol] 9.3 g/dL Low 12.0-16.0 [facility] IgA [Mass/volume] in Serum o r PlasmaOrdered By: Nathan Hathaway on 06-23-2025 IgA [Mass/Vol] 62 mg/dL Abnormal 64-422 [facility] IgG [Mass/volume] in Serum o r PlasmaOrdered By: Nathan Hathaway on 06-23-2025 IgG [Mass/Vol] 330 mg/dL Abnormal [id number] [facility] IgM [Mass/volume] in Serum o r PlasmaOrdered By: Nathan Hathaway on 06-23-2025 IgM [Mass/Vol] 325 mg/dL Abnormal 26-217 [facility] Immunoglobulin light chains. kappa.free [Mass/volume] in SerumOrdered By: Nathan Hathaway on 06-23-2025 Immunoglobulin light chains.kappa.free (S) [Mass/Vol] 224.6 mg/L Abnormal 3.3-19.4 [facility] [facility] Immunoglobulin light chains. kappa.free/Immunoglobulin light chains.lambda.free [MassOrdered By: Nathan Hathaway on 06-23-2025 Immunoglobulin light chains.kappa.free/Immu noglobulin light chains.lambda.free (S) [Mass ratio] 10.59 Abnormal 0.26-1.65 [facility] Comment on above: Performed at: [place] [id number] Director: Carlos Witt PhD, Phone: [phone] Immunoglobulin light chains. lambda.free [Mass/volume] in Serum or PlasmaOrdered By: Nathan Hathaway on 06-23-2025 Immunoglobulin light chains.lambda.free [Mass/Vol] 21.2 mg/L 5.7-26.3 [facility] Iron binding capacity [Mass/ volume] in Serum or PlasmaOrdered By: Nathan Hathaway on 06-23-2025 Iron binding capacity [Mass/Vol] 245.0 ug/dL Low 250.0-450.0 [facility] Iron saturation [Mass Fracti on] in Serum or PlasmaOrdered By: Nathan Hathaway on 06-23-2025 Iron saturation [Mass fraction] 14.3 % [facility] Laboratory - Chemistry and C hemistry - challengeOrdered By: Nathan Hathaway on 06-23-2025 ALP [Catalytic activity/Vol] 47 U/L 46-116 [facility] ALT [Catalytic activity/Vol] 18 U/L 14-59 [facility] AST [Catalytic activity/Vol] 18 U/L 15-37 [facility] Bilirubin [Mass/Vol] 0.5 mg/dL 0.2-1.0 [facility] Calcium [Mass/Vol] 8.9 mg/dL 8.5-10.1 [facility] Chloride [Moles/Vol] 104 mmol/L 98-107 [facility] Cholesterol [Mass/Vol] 123 mg/dL <=200 [facility] Cholesterol in HDL [Mass/Vol] 45 mg/dL 40-60 [facility] Comment on above: > or =60 mg/dl - LOW CARDIOVASCULAR RISK<40 mg/dl - HIGH CARDIOVASCULAR RISK CO2 [Moles/Vol] 30.2 mmol/L 21.0-32.0 [facility] Cobalamin (Vitamin B12) [Mass/Vol] 1089 pg/mL 232-1245 [facility] Comment on above: Performed at: [address] [id number] Director: Carlos Witt PhD, Phone: [phone] Creatinine [Mass/Vol] 1.45 mg/dL High 0.55-1.02 [facility] Ferritin [Mass/Vol] 176.0 ng/mL 8.0-252.0 [facility] Free T4 [Mass/Vol] 0.97 ng/dL 0.76-1.46 [facility] GFR/1.73 sq M.predicted MDRD (S/P/Bld) [Vol rate/Area] 42 mL/min/{1.73_m2} Low >=60 mL/min/1.73 m 2 [facility] Glucose [Mass/Vol] 94 mg/dL 74-106 [facility] Iron [Mass/Vol] 35.0 ug/dL Low 50.0-170.0 [facility] Potassium [Moles/Vol] 4.3 mmol/L 3.5-5.1 [facility] Protein [Mass/Vol] 0.2 g/dL Abnormal Not Observed [facility] Protein [Mass/Vol] 6.5 g/dL 6.4-8.2 [facility] Sodium [Moles/Vol] 142 mmol/L 136-145 [facility] Triglyceride [Mass/Vol] 89 mg/dL <=150 [facility] TSH Qn 5.101 m[IU]/L High 0.358-3.740 [facility] Urea nitrogen [Mass/Vol] 22.0 mg/dL High 7.0-18.0 [facility] Urea nitrogen/Creatinine [Mass ratio] 15.2 mg/mg [facility] Laboratory - Hematology and Cell countsOrdered By: Nathan Hathaway on 06-23-2025 Immature granulocytes/100 WBC (Bld) 0.4 % 0.0-0.5 [facility] Leukocytes [#/volume] correc miguel for nucleated erythrocytes in Blood by Automated counOrdered By: Nathan Hathaway on 06-23-2025 WBC corrected for nucl RBC Auto (Bld) [#/Vol] 5.6 10 3/uL 4.0-11.0 [facility] Lymphocytes Auto (Bld) [#/Vo l]Ordered By: Nathan Hathaway on 06-23-2025 Lymphocytes (Bld) [#/Vol] 0.8 10 3/uL Low 1.2-3.8 [facility] Lymphocytes/100 WBC Auto (Bl d)Ordered By: Nathan Hathaway on 06-23-2025 Lymphocytes/100 WBC (Bld) 14.4 % Low 20.5-60.0 [facility] MCH Auto (RBC) [Entitic mass ]Ordered By: Nathan Hathaway on 06-23-2025 MCH (RBC) [Entitic mass] 29.0 pg 26.7-34.0 [facility] MCHC Auto (RBC) [Mass/Vol]Or dered By: Nathan Hathaway on 06-23-2025 MCHC (RBC) [Mass/Vol] 32.9 g/dL 29.9-35.2 [facility] MCV Auto (RBC) [Entitic vol] Ordered By: Nathan Hathaway on 06-23-2025 MCV (RBC) [Entitic vol] 88.2 fL 81.0-99.0 [facility] Monocytes Auto (Bld) [#/Vol] Ordered By: Nathan Hathaway on 06-23-2025 Monocytes (Bld) [#/Vol] 0.5 10 3/uL 0.3-0.8 [facility] Monocytes/100 WBC Auto (Bld) Ordered By: Nathan Hathaway on 06-23-2025 Monocytes/100 WBC (Bld) 8.7 % 1.7-12.0 [facility] Neutrophils Auto (Bld) [#/Vo l]Ordered By: Nathan Hathaway on 06-23-2025 Neutrophils (Bld) [#/Vol] 4.1 10 3/uL 1.4-6.5 [facility] Neutrophils/100 WBC Auto (Bl d)Ordered By: Nathan Hathaway on 06-23-2025 Neutrophils/100 WBC (Bld) 73.1 % 43.0-75.0 [facility] No Panel InformationOrdered By: Nathan Hathaway on 06-23-2025 Eosinophils # (Auto) 0.2 10 3/uL 0.0-0.7 [facility] Folate 17.90 ng/mL 8.60-58.90 [facility] Immature Granulocyte # (Auto) 0.02 10 3/uL 0.00-0.03 [facility] Protein Electrophoresis Note Comment . [facility] Comment on above: Protein electrophore sis scan will follow via computer,mail, or tape machine tailer delivery. Platelet mean volume Auto (B ld) [Entitic vol]Ordered By: Nathan Hathaway on 06-23-2025 Platelet mean volume (Bld) [Entitic vol] 10.2 fL 9.5-13.5 [facility] Platelets Auto (Bld) [#/Vol] Ordered By: Nathan Hathaway on 06-23-2025 Platelets (Bld) [#/Vol] 270 10 3/uL 150-450 [facility] Protein [Mass/volume] in Ser um or PlasmaOrdered By: Nathan Hathaway on 06-23-2025 Protein [Mass/Vol] 5.7 g/dL Abnormal 6.0-8.5 [facility] RBC Auto (Bld) [#/Vol]Ordere d By: Nathan Hathaway on 06-23-2025 RBC (Bld) [#/Vol] 3.21 10 6/uL Low 4.20-5.40 [facility] Serum globulin measurement ( mass/volume)Ordered By: Nathan Hathaway on 06-23-2025 Globulin (S) [Mass/Vol] 2.5 g/dL 2.2-3.9 [facility] Serum or plasma albumin/glob ulin mass ratioOrdered By: Nathan Hathaway on 06-23-2025 Albumin/Globulin [Mass ratio] 1.0 {ratio} [facility] Albumin/Globulin [Mass ratio] 1.3 {ratio} 0.7-1.7 [facility] Serum or plasma alpha 1 glob ulin measurement by electrophoresis (mass/volume)Ordered By: Nathan Hathaway on 06-23-2025 Alpha 1 globulin Elph [Mass/Vol] 0.3 g/dL 0.0-0.4 [facility] Serum or plasma alpha 2 glob ulin measurement by electrophoresis (mass/volume)Ordered By: Nathan Hathaway on 06-23-2025 Alpha 2 globulin Elph [Mass/Vol] 1.0 g/dL 0.4-1.0 [facility] Serum or plasma anion gap de terminationOrdered By: Nathan Hathaway on 06-23-2025 Anion gap [Moles/Vol] 12.1 mmol/L [facility] Serum or plasma beta globuli n measurement by electrophoresis (mass/volume)Ordered By: Nathan Hathaway on 06-23-2025 Beta globulin Elph [Mass/Vol] 0.7 g/dL 0.7-1.3 [facility] Serum or plasma gamma globul in measurement by electrophoresis (mass/volume)Ordered By: Nathan Hathaway on 06-23-2025 Gamma globulin Elph [Mass/Vol] 0.5 g/dL 0.4-1.8 [facility] Serum or plasma immunoelectr ophoresis interpretationOrdered By: Nathan Hathaway on 06-23-2025 Interpretation IEP [Interp] Comment Abnormal . [facility] Comment on above: Immunofixation shows IgM monoclonal protein with kappalight chain specificity. Serum or plasma total choles terol/high density lipoprotein (HDL) cholesterol mass ratOrdered By: Nathan Hathaway on 06-23-2025 Cholesterol.total/Chol esterol in HDL [Mass ratio] 2.7 {ratio} [facility] Comment on above: 3.3 - 4.4 LOW RISK4. 4 - 7.1 AVERAGE RISK7.1 - 11.0 MODERATE RISK>11.0 HIGH RISK Estimated glomerular filtrat ion rate (GFR) non- Americanon 03-18-2025 GFR/1.73 sq M.predicted among non-blacks MDRD (S/P/Bld) [Vol rate/Area] Estimated glomerular filtration rate (GFR) non- Low >=60 mL/min/1.73 m 2 [facility] GFR/1.73 sq M.predicted among non-blacks MDRD (S/P/Bld) [Vol rate/Area] 31 mL/min/{1.73_m2} Low >=60 mL/min/1.73 m 2 [facility] Laboratory - Chemistry and C hemistry - challengeon 03-18-2025 Calcium [Mass/Vol] 8.9 mg/dL 8.5-10.1 [facility] Chloride [Moles/Vol] 105 mmol/L 98-107 [facility] CO2 [Moles/Vol] 30.7 mmol/L 21.0-32.0 [facility] Creatinine [Mass/Vol] 1.60 mg/dL High 0.55-1.02 [facility] GFR/1.73 sq M.predicted MDRD (S/P/Bld) [Vol rate/Area] 37 mL/min/{1.73_m2} Low >=60 mL/min/1.73 m 2 [facility] Glucose [Mass/Vol] 112 mg/dL High 74-106 [facility] Potassium [Moles/Vol] 4.4 mmol/L 3.5-5.1 [facility] Sodium [Moles/Vol] 145 mmol/L 136-145 [facility] TSH Qn 3.657 m[IU]/L 0.358-3.740 [facility] Urea nitrogen [Mass/Vol] 33.0 mg/dL High 7.0-18.0 [facility] Urea nitrogen/Creatinine [Mass ratio] 20.6 mg/mg [facility] Serum or plasma anion gap de terminationon 03-18-2025 Anion gap [Moles/Vol] Serum or plasma an ion gap determination [facility] Anion gap [Moles/Vol] 13.7 mmol/L [facility] TRANSTHORACIC ECHO (TTE) COM PLETEon 03-17-2025 TRANSTHORACIC ECHO (TTE) COMPLETE [address], Suite [facility][note 3], [place] [address] TRANSTHORACIC ECHOCARDIOGRAM REPORT Patient Name: LASHAUN JOAQUIN Reading Physician: [id number] Bryce Guy MD, [facility] Study Date: 03/17/2025 Ordering Provider: [id number] HOLDEN ROSADO MRN/PID: [id number] Fellow: Nurse: Date of /Age: 11 1940 / Manager Of [employer]: Nicolasa taylor RDCS, RVT Gender Assigned at F Additional Staff: : Height: 165.10 cm Admit Date: Weight: 90.72 kg Admission Status: BSA / BMI: 1.98 m2 / 33.28 Department Location: [facility] kg/m2 [facility] [place] Blood Pressure: 120 /64 mmHg Study Type: TRANSTHORACIC ECHO (TTE) COMPLETE Diagnosis/ICD: Essential (primary) hypertension-I10; Palpitations-R00.2 Indication: CAD, PTCA-2022, Edema, Hyperlipidemia, Former Smoker CPT Codes: Echo Complete w Full Doppler-54395 Study Detail: The following Echo studies were [...] Normal Ranges: RV (more content not included)... [facility] Acanthocytes [Presence] in B lood by Light microscopyOrdered By: Jorge L Cruz on 02-12-2025 Acanthocytes LM Ql (Bld) Acanthocytes [Presence] in Blood by Light microscopy [facility] Alanine aminotransferase [En zymatic activity/volume] in Serum or PlasmaOrdered By: Jorge L Cruz on 02-12-2025 ALT [Catalytic activity/Vol] Alanine aminotransferase [Enzymatic activity/volume] in Serum or Plasma 7-52 [facility] Albumin [Mass/volume] in Ser um or Plasma by Bromocresol green (BCG) dye binding methoOrdered By: Jorge L Cruz on 02-12-2025 Albumin BCG dye [Mass/Vol] Albumin [Mass/volume] in Serum or Plasma by Bromocresol green (BCG) dye binding metho 3.5-5.7 [facility] Alkaline phosphatase [Enzyma tic activity/volume] in Serum or PlasmaOrdered By: Jorge L Cruz on 02-12-2025 ALP [Catalytic activity/Vol] Alkaline phosphatase [Enzymatic activity/volume] in Serum or Plasma 34-104 [facility] Anisocytosis LM Ql (Bld)Orde red By: Jorge L Cruz on 02-12-2025 Anisocytosis Ql (Bld) Anisocytosis [Pres ence] in Blood by Light microscopy [facility] Aspartate aminotransferase [ Enzymatic activity/volume] in Serum or PlasmaOrdered By: Jorge L Cruz on 02-12-2025 AST [Catalytic activity/Vol] Aspartate aminotransferase [Enzymatic activity/volume] in Serum or Plasma 13-39 [facility] B-Type Natriuretic Peptideon 02-12-2025 Natriuretic peptide B (Bld) [Mass/Vol] 246.0 pg/mL High 5-100 [facility] Comment on above: Result Comment: PERF ORMED BY: [facility] [address] [facility] [place] [id number] PATHOLOGIST SALES OFFICE COORDINATOR RAMEZ MONTES M.D. Performed By: #### S CAN CBC, CK, HS TROP, BNP, PT, PTT ####[facility] [address] [place] [address] [facility] Basophils Auto (Bld) [#/Vol] Ordered By: Jorge L Cruz on 02-12-2025 Basophils (Bld) [#/Vol] Automated basophil count 0.0-0.2 [facility] Basophils/100 WBC Auto (Bld) Ordered By: Jorge L Cruz on 02-12-2025 Basophils/100 WBC (Bld) Automated basophil % . [facility] Bilirubin.total [Mass/volume ] in Serum or PlasmaOrdered By: Jorge L Cruz on 02-12-2025 Bilirubin [Mass/Vol] Bilirubin.total [Mass/volume] in Serum or Plasma 0.3-1.0 [facility] Calcium [Mass/volume] in Ser um or PlasmaOrdered By: Jorge L Cruz on 02-12-2025 Calcium [Mass/Vol] Calcium [Mass/volume ] in Serum or Plasma 8.6-10.3 [facility] Carbon dioxide, total [Moles /volume] in Serum or PlasmaOrdered By: Jorge L Cruz on 02-12-2025 CO2 [Moles/Vol] Carbon dioxide, tota l [Moles/volume] in Serum or Plasma 21.0-31.0 [facility] Chloride [Moles/volume] in S courtney or PlasmaOrdered By: Jorge L Cruz on 02-12-2025 Chloride [Moles/Vol] Chloride [Moles/vol ume] in Serum or Plasma 98-107 [facility] Comprehensive Metabolic Pane arnoldo 02-12-2025 Albumin [Mass/Vol] 3.8 g/dL Normal 3.5-5.7 [facility] Comment on above: Performed By: #### T SH3, CMP, MG #### [facility] [address] Albumin/Globulin [Mass ratio] 1.6 {ratio} Normal [facility] Comment on above: Performed By: #### T SH3, CMP, MG #### [facility] [address] [place] [id number] [place] ALP [Catalytic activity/Vol] 43 U/L Normal 34-104 [facility] Comment on above: Performed By: #### T SH3, CMP, MG #### [facility] [address] [place] [id number] [place] ALT [Catalytic activity/Vol] 14 U/L Normal 7-52 [facility] Comment on above: Performed By: #### T SH3, CMP, MG #### [facility] [address] [place] [id number] [facility] Anion gap [Moles/Vol] 11.4 mmol/L Normal 6.0-15.0 [facility] Comment on above: Performed By: #### T SH3, CMP, MG #### [facility] [address] [place] [address] [place] AST [Catalytic activity/Vol] 19 U/L Normal 13-39 [facility] Comment on above: Performed By: #### T SH3, CMP, MG #### [facility] [address] [place] [address] [place] Bilirubin [Mass/Vol] 0.4 mg/dL Normal 0.3-1.0 [facility] Comment on above: Performed By: #### T SH3, CMP, MG #### [facility] [address] [place] [address] [place] Calcium [Mass/Vol] 9.1 mg/dL Normal 8.6-10.3 [facility] Comment on above: Performed By: #### T SH3, CMP, MG #### [facility] [address] [place] [address] [place] Chloride [Moles/Vol] 107 mmol/L Normal 98-107 [facility] Comment on above: Performed By: #### T SH3, CMP, MG #### [facility] [address] [place] [address] [place] CO2 [Moles/Vol] 27.7 mmol/L Normal 21.0-31.0 [facility] Comment on above: Performed By: #### T SH3, CMP, MG #### [facility] [address] [place] [address] [place] Creatinine [Mass/Vol] 1.28 mg/dL High 0.60-1.20 [facility] Comment on above: Performed By: #### T SH3, CMP, MG #### [facility] [address] [place] [address] [place] Creatinine Clr Calc Pharmacy 37.75 Normal [facility] Comment on above: Performed By: #### T SH3, CMP, MG #### [facility] [address] Estimated GFR 41.827 mL/Min Normal [facility] Comment on above: Performed By: #### T SH3, CMP, MG #### [address] Globulin (S) [Mass/Vol] 2.4 g/dL Normal [facility] Comment on above: Performed By: #### T SH3, CMP, MG #### [address] Glucose [Mass/Vol] 102 mg/dL High 70-100 [facility] Comment on above: Result Comment: [place] Glucose Reference Range is dependent on time and content of last meal. Glucose of more than 200 mg/dL in a nonstressed, ambulatory subject supports the diagnosis of Diabetes Mellitus. ADA recommended reference range Performed By: #### T SH3, CMP, MG #### [address] Potassium [Moles/Vol] 4.1 mmol/L Normal 3.5-5.1 [facility] Comment on above: Performed By: #### T SH3, CMP, MG #### [address] Protein [Mass/Vol] 6.2 g/dL Low 6.4-8.9 [facility] Comment on above: Performed By: #### T SH3, CMP, MG #### [address] Sodium [Moles/Vol] 142 mmol/L Normal 136-145 [facility] Comment on above: Performed By: #### T SH3, CMP, MG #### [address] Urea nitrogen [Mass/Vol] 28 mg/dL High 7-25 [facility] Comment on above: Performed By: #### T SH3, CMP, MG #### [place] [address] [place] Creatine Kinaseon 02-12-2025 CK [Catalytic activity/Vol] 35 U/L Normal 30-223 [facility] Comment on above: Performed By: #### S CAN CBC, CK, HS TROP, BNP, PT, PTT ####[facility] [place] [address] [place] Creatine kinase [Enzymatic a ctivity/volume] in Serum or PlasmaOrdered By: Jorge L Cruz on 02-12-2025 CK [Catalytic activity/Vol] Creatine kinase [Enzymatic activity/volume] in Serum or Plasma 30-223 [facility] Creatinine [Mass/volume] in Serum or PlasmaOrdered By: Jorge L Cruz on 02-12-2025 Creatinine [Mass/Vol] Creatinine [Mass/v olume] in Serum or Plasma High 0.60-1.20 [facility] ECG 12 lead ECGon 02-12-2025 ECG 12 lead ECG [facility] Main [address] [address] Electrocardiograph Report Signed Patient: Lashaun Joaquin MR#: [id number] : 1940 Acct:[id number] Age/Sex: 84 / F ADM Date: 02/12/25 Loc: ER Room: Type: [facility] ER Attending Dr: Ordering Provider: [...] rhythm Confirmed by Jorge L CRUZ DO ([id number]) on 02/12/2025 10:52:00 AM Referred By: Electronically Signed By: Jorge L CRUZ DO Transcribed By: [facility] Signed By Jorge L Cruz DO 0 02/12/25 1052 Normal [facility] Eosinophils Auto (Bld) [#/Vo l]Ordered By: Jorge L Cruz on 02-12-2025 Eosinophils (Bld) [#/Vol] Automated eosinophil count 0.0-0.45 [facility] Eosinophils/100 WBC Auto (Bl d)Ordered By: Jorge L Cruz on 02-12-2025 Eosinophils/100 WBC (Bld) Automated eosinophil % . [facility] Erythrocyte distribution wid th Auto (RBC) [Ratio]Ordered By: Jorge L Cruz on 02-12-2025 Erythrocyte distribution width (RBC) [Ratio] Erythrocyte distribution width [Ratio] by Automated count 11.9-15.3 [facility] Erythrocyte morphology findi ng [Identifier] in BloodOrdered By: Jorge L Cruz on 02-12-2025 RBC morphology finding Nom (Bld) RBC morphology [facility] Globulin Calc (S) [Mass/Vol] Ordered By: Jorge L Cruz on 02-12-2025 Globulin (S) [Mass/Vol] Serum globulin measurement by calculation (mass/volume) [facility] Glucose [Mass/volume] in Ser um or PlasmaOrdered By: Jorge L Cruz on 02-12-2025 Glucose [Mass/Vol] Glucose [Mass/volume ] in Serum or Plasma High 70-100 [facility] Comment on above: ADA recommended refe [...] of Blood by Automated count Low 34.0-46.4 [facility] Hemoglobin [Mass/volume] in BloodOrdered By: Jorge L Cruz 02-12-2025 Hemoglobin (Bld) [Mass/Vol] Hemoglobin [Mass/volume] in Blood Low 11.8-15.4 [facility] INR in Platelet poor plasma by Coagulation assayOrdered By: Jorge L Cruz 02-12-2025 INR Coag (PPP) [Relative time] INR in Platelet poor plasma by Coagulation assay [facility] Comment on above: INR Therapeutic Rang [...] erythrocytes in Blood by Automated coun 3.8-11.6 [facility] Lymphocytes Auto (Bld) [#/Vo l]Ordered By: Jorge L Cruz on 02-12-2025 Lymphocytes (Bld) [#/Vol] Lymphocytes [#/volume] in Blood by Automated count Low 1.00-4.8 [facility] Lymphocytes/100 WBC Auto (Bl d)Ordered By: Jorge L Cruz on 02-12-2025 Lymphocytes/100 WBC (Bld) Lymphocytes/100 leukocytes in Blood by Automated count . [facility] MCH Auto (RBC) [Entitic mass ]Ordered By: Jorge L Cruz on 02-12-2025 MCH (RBC) [Entitic mass] MCH [Entitic mass] by Automated count 24.7-34.3 [facility] MCHC Auto (RBC) [Mass/Vol]Or dered By: Jorge L Cruz on 02-12-2025 MCHC (RBC) [Mass/Vol] MCHC [Mass/volume] by Automated count 32.0-35.0 [facility] MCV Auto (RBC) [Entitic vol] Ordered By: Jorge L Cruz on 02-12-2025 MCV (RBC) [Entitic vol] MCV [Entitic volume] by Automated count 80-100 [facility] Magnesiumon 02-12-2025 Magnesium [Mass/Vol] 2.3 mg/dL Normal 1.9-2.7 [facility] Comment on above: Performed By: #### T SH3, CMP, MG #### [address] Magnesium [Mass/volume] in S courtney or PlasmaOrdered By: Jorge L Cruz on 02-12-2025 Magnesium [Mass/Vol] Magnesium [Mass/vol ume] in Serum or Plasma 1.9-2.7 [facility] Microcytes LM Ql (Bld)Ordere d By: Jorge L Cruz on 02-12-2025 Microcytes Ql (Bld) Microcytes [Presence ] in Blood by Light microscopy [facility] Monocyte distribution width [Entitic volume] in Blood by AutomatedOrdered By: Jorge L Cruz on 02-12-2025 Monocyte distribution width Auto (Bld) [Entitic vol] Monocyte distribution width [Entitic volume] in Blood by Automated High 0.00-20.00 [facility] Comment on above: For adults in ED, MD W > 20.0 may be associated with a higher risk of sepsis during the first 12 hrs of hospital admission Monocytes Auto (Bld) [#/Vol] Ordered By: Jorge L Cruz on 02-12-2025 Monocytes (Bld) [#/Vol] Automated blood monocyte count 0.0-0.8 [facility] Monocytes/100 WBC Auto (Bld) Ordered By: Jorge L Cruz on 02-12-2025 Monocytes/100 WBC (Bld) Automated monocyte % . [facility] Natriuretic peptide B [Mass/ Vol]Ordered By: Jorge L Cruz on 02-12-2025 Natriuretic peptide B (Bld) [Mass/Vol] BNP ser/plas High 5-100 [facility] Neutrophils Auto (Bld) [#/Vo l]Ordered By: Jorge L Cruz on 02-12-2025 Neutrophils (Bld) [#/Vol] Neutrophils [#/volume] in Blood by Automated count 1.8-7.7 [facility] Neutrophils/100 WBC Auto (Bl d)Ordered By: Jorge L Cruz on 02-12-2025 Neutrophils/100 WBC (Bld) Automated neutrophil % . [facility] No Panel InformationOrdered By: Jorge L Cruz on 02-12-2025 Estimated GFR (CKD-EPI) 41.827 mL/Min [facility] Creatinine Clearance (Chem 37.75 [facility] Nucleated erythrocytes [Pres ence] in Blood by Automated countOrdered By: Jorge L Cruz on 02-12-2025 Nucleated RBC Auto Ql (Bld) Nucleated erythrocytes [Presence] in Blood by Automated count 0-0.5 [facility] Ovalocytes [Presence] in Blo od by Light microscopyOrdered By: Jorge L Cruz on 02-12-2025 Ovalocytes LM Ql (Bld) Ovalocyte detection [facility] Partial Thromboplastin Timeo n 02-12-2025 aPTT Coag (Bld) [Time] 29.8 s Normal 25.1-36.5 [facility] Comment on above: Result Comment: A he matocrit value greater than 55% may lead to inaccurate results in coagulation testing. Patients having hematocrit values >55% require a special collection tube for coagulation studies. Please contact the laboratory at [phone] for redraw instructions. PERFORMED BY: [facility] [address] [place] [address] PATHOLOGIST SALES OFFICE COORDINATOR RAMEZ MONTES M.D. Performed By: #### S CAN CBC, CK, HS TROP, BNP, PT, PTT ####[facility] [address] [place] [address] [facility] Platelet adequacy [Presence] in Blood by Light microscopyOrdered By: Jorge L Cruz on 02-12-2025 Platelets LM Ql (Bld) Platelet adequacy [Presence] in Blood by Light microscopy Normal [facility] Platelet mean volume Auto (B ld) [Entitic vol]Ordered By: Jorge L Cruz on 02-12-2025 Platelet mean volume (Bld) [Entitic vol] Platelet mean volume [Entitic volume] in Blood by Automated count 6.3-10.7 [facility] Platelet morphology finding [Identifier] in BloodOrdered By: Jorge L Cruz on 02-12-2025 Platelet morphology finding Nom (Bld) Platelet morphology finding [Identifier] in Blood Normal [facility] Platelets Auto (Bld) [#/Vol] Ordered By: Jorge L Cruz on 02-12-2025 Platelets (Bld) [#/Vol] Platelets [#/volume] in Blood by Automated count 150-450 [facility] Poikilocytosis [Presence] in Blood by Light microscopyOrdered By: Jorge L Cruz on 02-12-2025 Poikilocytosis LM Ql (Bld) Poikilocytosis [Presence] in Blood by Light microscopy [facility] Potassium [Moles/volume] in Serum or PlasmaOrdered By: Jorge L Cruz on 02-12-2025 Potassium [Moles/Vol] Potassium [Moles/v olume] in Serum or Plasma 3.5-5.1 [facility] Protein [Mass/volume] in Ser um or PlasmaOrdered By: Jorge L Cruz on 02-12-2025 Protein [Mass/Vol] Protein [Mass/volume ] in Serum or Plasma Low 6.4-8.9 [facility] Prothrombin Time INRon 02-12 INR Coag (PPP) [Relative time] 1.0 {INR} Normal [facility] Comment on above: [...] CBC, CK, HS TROP, BNP, PT, PTT ####[facility] [place] [id number] [facility] PT Coag (PPP) [Time] 11.3 s Normal 9.0-12.9 [facility] Comment on above: Result Comment: A he matocrit value greater than 55% may lead to inaccurate results in coagulation testing. Patients having hematocrit values >55% require a special collection tube for coagulation studies. Please contact the laboratory at [phone] for redraw instructions. Performed By: #### S CAN CBC, CK, HS TROP, BNP, PT, PTT ####[place] [id number] [place] [id number] [facility] Prothrombin time (PT)Ordered By: Jorge L Cruz on 02-12-2025 PT Coag (PPP) [Time] Prothrombin time (PT) 9.0- 12.9 [facility] Comment on above: A hematocrit value g reater than 55% may lead to inaccurate results in coagulation testing. Patients having hematocrit values >55% require a special collection tube for coagulation studies. Please contact the laboratory at [phone] for redraw instructions. RBC Auto (Bld) [#/Vol]Ordere d By: Jorge L Cruz on 02-12-2025 RBC (Bld) [#/Vol] Erythrocytes [#/volu me] in Blood by Automated count Low 3.60-5.00 [facility] Scan and CBCon 02-12-2025 Acanthocytes Slight Normal [facility] Comment on above: Performed By: #### S CAN CBC, CK, HS TROP, BNP, PT, PTT ####[facility] Anisocytosis Ql (Bld) Moderate Normal [facility] Comment on above: Performed By: #### S CAN CBC, CK, HS TROP, BNP, PT, PTT ####[address] Basophils (Bld) [#/Vol] 0.0 10*3/uL Normal 0.0-0.2 [facility] Comment on above: Performed By: #### S CAN CBC, CK, HS TROP, BNP, PT, PTT ####[address] Basophils/100 WBC (Bld) 0.6 % Normal . [facility] Comment on above: Performed By: #### S CAN CBC, CK, HS TROP, BNP, PT, PTT ####[address] Eosinophils (Bld) [#/Vol] 0.1 10*3/uL Normal 0.0-0.45 [facility] Comment on above: Performed By: #### S CAN CBC, CK, HS TROP, BNP, PT, PTT ####[address] Eosinophils/100 WBC (Bld) 1.5 % Normal . [facility] Comment on above: Performed By: #### S CAN CBC, CK, HS TROP, BNP, PT, PTT ####[address] Erythrocyte distribution width (RBC) [Ratio] 13.8 % Normal 11.9-15.3 [facility] Comment on above: Performed By: #### S CAN CBC, CK, HS TROP, BNP, PT, PTT ####[address] Hematocrit (Bld) [Volume fraction] 29.7 % Low 34.0-46.4 [facility] Comment on above: Performed By: #### S CAN CBC, CK, HS TROP, BNP, PT, PTT ####[address] Hemoglobin (Bld) [Mass/Vol] 10.2 g/dL Low 11.8-15.4 [facility] Comment on above: Performed By: #### S CAN CBC, CK, HS TROP, BNP, PT, PTT ####[address] Lymphocytes (Bld) [#/Vol] 0.9 10*3/uL Low 1.00-4.8 [facility] Comment on above: Performed By: #### S CAN CBC, CK, HS TROP, BNP, PT, PTT ####[address] Lymphocytes/100 WBC (Bld) 13.6 % Normal . [facility] Comment on above: Performed By: #### S CAN CBC, CK, HS TROP, BNP, PT, PTT ####[address] MCH (RBC) [Entitic mass] 28.9 pg Normal 24.7-34.3 [facility] Comment on above: Performed By: #### S CAN CBC, CK, HS TROP, BNP, PT, PTT ####[address] MCV (RBC) [Entitic vol] 83.9 fL Normal 80-100 [facility] Comment on above: Performed By: #### S CAN CBC, CK, HS TROP, BNP, PT, PTT ####[address] Mean Corpuscular HGB Conc 34.5 g/dL Normal 32.0-35.0 [facility] Comment on above: Performed By: #### S CAN CBC, CK, HS TROP, BNP, PT, PTT ####[address] Microcytosis Moderate Normal [facility] Comment on above: Performed By: #### S CAN CBC, CK, HS TROP, BNP, PT, PTT ####[address] Monocytes (Bld) [#/Vol] 0.4 10*3/uL Normal 0.0-0.8 [facility] Comment on above: Performed By: #### S CAN CBC, CK, HS TROP, BNP, PT, PTT ####[address] Monocytes/100 WBC (Bld) 21.49 % High 0.00-20.00 [facility] Comment on above: Result Comment: For adults in ED, MDW > 20.0 may be associated with a higher risk of sepsis during the first 12 hrs of hospital admission Performed By: #### S CAN CBC, CK, HS TROP, BNP, PT, PTT ####[address] Monocytes/100 WBC (Bld) 6.6 % Normal . [facility] Comment on above: Performed By: #### S CAN CBC, CK, HS TROP, BNP, PT, PTT ####[address] Neutrophils (Bld) [#/Vol] 4.9 10*3/uL Normal 1.8-7.7 [facility] Comment on above: Performed By: #### S CAN CBC, CK, HS TROP, BNP, PT, PTT ####[address] Neutrophils/100 WBC (Bld) 77.7 % Normal . [facility] Comment on above: Performed By: #### S CAN CBC, CK, HS TROP, BNP, PT, PTT ####[address] NRBC% 0.1 /100{WBC} Normal 0-0.5 [facility] Comment on above: Performed By: #### S CAN CBC, CK, HS TROP, BNP, PT, PTT ####[place] [address] [place] Ovalocytes Slight Normal [facility] Comment on above: Performed By: #### S CAN CBC, CK, HS TROP, BNP, PT, PTT ####[address] [place] [address] [facility] Platelet Estimate Normal Normal Normal [facility] Comment on above: Performed By: #### S CAN CBC, CK, HS TROP, BNP, PT, PTT ####[address] [address] [facility] Platelet mean volume (Bld) [Entitic vol] 7.7 fL Normal 6.3-10.7 [facility] Comment on above: Performed By: #### S CAN CBC, CK, HS TROP, BNP, PT, PTT ####[address] [address] [facility] Platelet Morphology Normal Normal Normal [facility] Comment on above: Result Comment: PERF ORMED BY: [facility] [address] [place] [address] PATHOLOGIST SALES OFFICE COORDINATOR RAMEZ MONTES M.D. Performed By: #### S CAN CBC, CK, HS TROP, BNP, PT, PTT ####[place] [id number] [facility] Platelets (Bld) [#/Vol] 383 10*3/uL Normal 150-450 [facility] Comment on above: Performed By: #### S CAN CBC, CK, HS TROP, BNP, PT, PTT ####[address] [address] [facility] Poikilocytosis Moderate Normal [facility] Comment on above: Performed By: #### S CAN CBC, CK, HS TROP, BNP, PT, PTT ####[place] [id number] [facility] RBC (Bld) [#/Vol] 3.54 10*6/uL Low 3.60-5.00 [facility] Comment on above: Performed By: #### S CAN CBC, CK, HS TROP, BNP, PT, PTT ####[address] [address] [facility] WBC (Bld) [#/Vol] 6.3 10*3/uL Normal 3.8-11.6 [facility] Comment on above: Performed By: #### S CAN CBC, CK, HS TROP, BNP, PT, PTT ####[facility] WBC (Bld) [#/Vol] 7.6 10*3/uL Normal 3.8-11.6 [facility] Comment on above: Performed By: #### S CAN CBC, CK, HS TROP, BNP, PT, PTT ####[facility] Serum or plasma albumin/glob ulin mass ratioOrdered By: Jorge L Cruz on 02-12-2025 Albumin/Globulin [Mass ratio] Serum or plasma albumin/globulin mass ratio [facility] Serum or plasma anion gap de terminationOrdered By: Jorge L Cruz on 02-12-2025 Anion gap [Moles/Vol] Serum or plasma an ion gap determination 6.0-15.0 [facility] Sodium [Moles/volume] in Ser um or PlasmaOrdered By: Jorge L Cruz on 02-12-2025 Sodium [Moles/Vol] Sodium [Moles/volume ] in Serum or Plasma 136-145 [facility] Thyroid Stimulating Hormoneo n 02-12-2025 TSH Qn 6.48 m[IU]/L High 0.45-5.33 [facility] Comment on above: Result Comment: PERF ORMED BY: [place] [address] PATHOLOGIST SALES OFFICE COORDINATOR RAMEZ MONTES M.D. Performed By: #### T SH3, CMP, MG #### [facility] [address] Thyrotropin [Units/volume] i n Serum or PlasmaOrdered By: Jorge L Cruz on 02-12-2025 TSH Qn Thyrotropin [Units/volume] in Serum or Plasma High 0.45-5.33 [facility] Troponin I High Sensitivityo n 02-12-2025 Troponin I High Sensitivity 10 Normal 0-15 [facility] Comment on above: Result Comment: The Troponin units of report have been changed to meet the Chest Pain Accreditation requirement, element EC5.M1l2. Troponin units are changed from pg/ml to ng/L. Also, the decimal is removed and results are in whole numbers. PERFORMED BY: [place] [address] PATHOLOGIST SALES OFFICE COORDINATOR RAMEZ MONTES M.D. Performed By: #### H S TROP ####[place] [id number] [facility] Troponin I High Sensitivity 10 Normal 0-15 [facility] Comment on above: Result Comment: The Troponin units of report have been changed to meet the Chest Pain Accreditation requirement, element EC5.M1l2. Troponin units are changed from pg/ml to ng/L. Also, the decimal is removed and results are in whole numbers. PERFORMED BY: [place] [address] PATHOLOGIST SALES OFFICE COORDINATOR RAMEZ MONTES M.D. Performed By: #### S CAN CBC, CK, HS TROP, BNP, PT, PTT ####[place] [id number] [facility] Troponin I.cardiac [Mass/vol ume] in Serum or Plasma by Detection limit <= 0.01 ng/Ordered By: Jorge L Cruz on 02-12-2025 Troponin I.cardiac DL <= 0.01 ng/mL [Mass/Vol] Troponin I.cardiac [Mass/volume] in Serum or Plasma by Detection limit <= 0.01 ng/ 0-15 [facility] Comment on above: The Troponin units [...] [Mass/volume] in Serum or Plasma High 7-25 [facility] WBC Auto (Bld) [#/Vol]Ordere d By: Jorge L Cruz on 02-12-2025 WBC (Bld) [#/Vol] Leukocytes [#/volume ] in Blood by Automated count 3.8-11.6 [facility] XR chest 2V*on 02-12-2025 XR chest 2V* [facility] [place] [address] [place] [address] XRay Report Signed Patient: Lashaun Joaquin MR#: [id number] : 1940 Acct:[id number] Age/Sex: 84 / F ADM Date: 02/12/25 Loc: ER Room: Type: [facility] ER Attending Dr: Copies to: Jorg eL Cruz DO Ordering Provider: Jorge L Cruz [...] Lyon Jr., D.OManuel02/12/2025 8:16 AM Dictation Location: [place] [address] Transcribed By: [facility] 02/12/25815 Dictated By: Epifanio Lyon Jr, DO 02/12/25815 Signed By: 02/12/25815 Normal [facility] aPTT in Platelet poor plasma by Coagulation assayOrdered By: Jorge L Cruz on 02-12-2025 aPTT Coag (PPP) [Time] Activated partial thromboplastin time (aPTT) in platelet poor plasma by coagulation a 25.1-36.5 [facility] Comment on above: A hematocrit value g reater than 55% may lead to inaccurate results in coagulation testing. Patients having hematocrit values >55% require a special collection tube for coagulation studies. Please contact the laboratory at [phone] for redraw instructions. US Thyroid glandon [facility] [address] [place] [address] Ultrasound Report Signed Patient: LASHAUN JOAQUIN MR#: [id number] : 1940 Acct:[id number] Age/Sex: 84 / F ADM Date: 02/10/25 Loc: US Attending Dr: Reyna Esparza M.D. Ordering Physician: Reyna Esparza M.D. Date of Service: 02/10/25 Procedure(s): US thyroid Accession Number(s): [id number] cc: Nathan Hathaway D.O.; Reyna Esparza M.D. [place] [id number] Patient Name: LASHAUN JOAQUIN MRN: [facility]:[id number] date: 1940 Sex: F Assigned Patient Location: US Current Patient Location: US Accession/Order Number: [id number] Exam Date: 02/10/2025 11:24 Report Date: 02/10/2025 [...] Shelli Israel M.D.02/10/2025 11:33 AM Dictation Location: [place] [address] Electronically authenticated by: [id number] Y Date: 02/10/2025 11:33 Dictated By: Shelli Israel M.D. Signed By: 02/10/25 1136 DD/ 1133 TD/TT: Lan Engineer: [facility] Radiology, Radiologi MD tana - 02/10/2025 [place] [address] Ultrasound Report Signed Patient: LASHAUN JOAQUIN MR#: [id number] : 1940 Acct:[id number] Age/Sex: 84 / F ADM Date: 02/10/25 Loc: US Attending Dr: Reyna Esparza M.D. Ordering Physician: Reyna Esparza M.D. Date of Service: 02/10/25 Procedure(s): US thyroid Accession Number(s): [id number] cc: Nathan Hathaway D.O.; Reyna Esparza M.D. The [place] [address] Patient Name: LASHAUN JOAQUIN MRN: [facility]:[id number] date: 1940 Sex: F Assigned Patient Location: US Current Patient Location: US Accession/Order Number: [id number] Exam Date: 02/10/2025 11:24 Report Date: 02/10/2025 [...] Shelli Israel M.D.02/10/2025 11:33 AM Dictation Location: [place] [address] Electronically authenticated by: [id number] Y Date: 02/10/2025 11:33 Dictated By: Shelli Israel M.D. Signed By: 02/10/25 1136 DD/ 1133 TD/TT: Lan Engineer: [facility] Radiology Study observation (narrative) [facility] US Thyroid glandOrdered By: Radiologist Radiology on 02-10-2025 [facility] Work Phone: Estimated glomerular filtrat ion rate (GFR) non- Americanon 01-23-2025 GFR/1.73 sq M.predicted among non-blacks MDRD (S/P/Bld) [Vol rate/Area] Estimated glomerular filtration rate (GFR) non- Low >=60 mL/min/1.73 m 2 [facility] - Chemistry and C hemistry - challengeon 01-23-2025 Calcium [Mass/Vol] 8.9 mg/dL 8.5-10.1 [facility] Chloride [Moles/Vol] 106 mmol/L 98-107 [facility] CO2 [Moles/Vol] 28.0 mmol/L 21.0-32.0 [facility] Creatinine [Mass/Vol] 1.42 mg/dL High 0.55-1.02 [facility] GFR/1.73 sq M.predicted MDRD (S/P/Bld) [Vol rate/Area] 43 mL/min/{1.73_m2} Low >=60 mL/min/1.73 m 2 [facility] Glucose [Mass/Vol] 116 mg/dL High 74-106 [facility] Potassium [Moles/Vol] 3.9 mmol/L 3.5-5.1 [facility] Sodium [Moles/Vol] 145 mmol/L 136-145 [facility] Urea nitrogen [Mass/Vol] 21.0 mg/dL High 7.0-18.0 [facility] Urea nitrogen/Creatinine [Mass ratio] 14.8 mg/mg [facility] Serum or plasma anion gap de terminationon 01-23-2025 Anion gap [Moles/Vol] Serum or plasma an ion gap determination [facility] Laboratory - Chemistry and C hemistry - challengeon 12-29-2024 Bilirubin Ql (U) Negative [facility] Glucose (U) [Mass/Vol] [facility] Ketones Ql (U) Negative [facility] pH (U) 5 [pH] [facility] Specific gravity (U) [Rel density] 1.000 [facility] Urobilinogen (U) [Mass/Vol] Negative [facility] Laboratory - Specimen inform ationon 12-29-2024 Appearance (U) clear [facility] Color (U) yellow [facility] - Urinalysison Leukocyte esterase Test strip Ql (U) Negative [facility] Nitrite Ql (U) Negative [facility] Protein Ql (U) 0.2 [facility] No Panel Informationon 12-29 Urine Occult Blood ++ [facility] Estimated glomerular filtrat ion rate (GFR) non- Americanon 12-18-2024 GFR/1.73 sq M.predicted among non-blacks MDRD (S/P/Bld) [Vol rate/Area] Estimated glomerular filtration rate (GFR) non- Low >=60 mL/min/1.73 m 2 [facility] - Chemistry and C hemistry - challengeon 12-18-2024 Calcium [Mass/Vol] 8.9 mg/dL 8.5-10.1 [facility] Chloride [Moles/Vol] 105 mmol/L 98-107 [facility] CO2 [Moles/Vol] 30.4 mmol/L 21.0-32.0 [facility] Creatinine [Mass/Vol] 1.57 mg/dL High 0.55-1.02 [facility] Free T4 [Mass/Vol] 0.90 ng/dL 0.76-1.46 [facility] GFR/1.73 sq M.predicted MDRD (S/P/Bld) [Vol rate/Area] 38 mL/min/{1.73_m2} Low >=60 mL/min/1.73 m 2 [facility] Glucose [Mass/Vol] 119 mg/dL High 74-106 [facility] Potassium [Moles/Vol] 4.1 mmol/L 3.5-5.1 [facility] Sodium [Moles/Vol] 143 mmol/L 136-145 [facility] TSH Qn 2.650 m[IU]/L 0.358-3.740 [facility] Urea nitrogen [Mass/Vol] 28.0 mg/dL High 7.0-18.0 [facility] Urea nitrogen/Creatinine [Mass ratio] 17.8 mg/mg [facility] Serum or plasma anion gap de terminationon 12-18-2024 Anion gap [Moles/Vol] Serum or plasma an ion gap determination [facility] INR in Platelet poor plasma by Coagulation assayOrdered By: Nathan Hathaway on 11-17-2024 INR Coag (PPP) [Relative time] INR in Platelet poor plasma by Coagulation assay [facility] Comment on above: INR Therapeutic Rang [...] [id number] Received: 11/17/24 Status: SERENITY Bob Num: [id number] Spec Type: Cytology Subm Dr: Seth Ley DO Tissues: A FNA SLIDES PATH (FNA THYROID) Procedures: -, DIFF QWIK/3, PAPSTN/4 Age/ Patient Sex Location Account Attending Physician Lashaun Joaquin 84/F [id number] Nathan Hathaway DO SPEC NUM: [id number] RECD: 11/17/24-1307 STATUS: SERENITY BOB NUM: [id number] JED: 11/17/24- SUBM DR: Seth Ley DO ENTERED: 11/17/24-[address] [facility] [address]: Nathan Hathaway DO SPEC TYPE: Cytology DEPT: HARDY ENTERED BY: [id number] RECV BY: [id number] ORDERED: -, DIFF QWIK/3, PAPSTN/4 ORDERED: -, DIFF QWIK/3, PAPSTN/4 Pathological Diagnosis Thyroid nodule, US-guided FNA: Satisfactory for evaluation. Benign ([place] category I). Clinical Information Thyroid Nodule,adrenal nodule, [...] [id number] Received: 11/17/24 Status: SERENITY Meyer Num: [id number] Spec Type: Cytology Subm Dr: Seth Ley DO Tissues: A FNA SLIDES PATH (FNA THYROID) Procedures: -, DIFF QWIK/3, PAPSTN/4 Patient: Lashaun Joaquin [id number] (Continued) Specimen: [id number] Received: 11/17/24 (Continued) Signed (signature on file) Lala Mast MD 11/18/24 0857 Specimen: [id number] Received: 11/17/24 Status: SERENITY Meyer Num: [id number] Spec Type: Cytology Subm Dr: Seth Ley DO Tissues: A FNA SLIDES PATH (FNA THYROID) Procedures: -, DIFF QWIK/3, PAPSTN/4 Patient: Karla Joaquinelyn [id number] (Continued) Specimen: [id number] Received: 11/17/24 (Continued) CPT Codes 25521, 92422 Specimen: [id number] Received: 11/17/24-1307 Status: SERENITY Meyer Num: [id number] Spec Type: Cytology Subm Dr: Seth Ley DO Tissues: A FNA SLIDES PATH (FNA THYROID) Procedures: -, DIFF QWIK/3, PAPSTN/4 Patient: Lashaun Joaquin [id number] (Continued) Signed (signature on file) Lala Mast MD 11/18/24 0857 Normal [facility] Partial Thromboplastin Timeo n 11-17-2024 aPTT Coag ([facility]) [Time] 28.9 s Normal 25.1-36.5 [facility] Comment on above: Result Comment: A he matocrit value greater than 55% may lead to inaccurate results in coagulation testing. Patients having hematocrit values >55% require a special collection tube for coagulation studies. Please contact the laboratory at [phone] for redraw instructions. PERFORMED BY: [address] [address] PATHOLOGIST SALES OFFICE COORDINATOR RAMEZ MONTES M.D. Performed By: #### P TT, PT #### [place] [id number] [facility] Platelet Counton 11-17-2024 Platelets (Bld) [#/Vol] 253 10*3/uL Normal 150-450 [facility] Comment on above: Result Comment: PERF ORMED BY: [place] [address] PATHOLOGIST SALES OFFICE COORDINATOR RAMEZ MONTES M.D. Performed By: #### P LT #### [address] Platelets Auto (Bld) [#/Vol] Ordered By: Nathan Hathaway on 11-17-2024 Platelets (Bld) [#/Vol] Platelets [#/volume] in Blood by Automated count 150-450 [facility] Prothrombin Time INRon 11-17 INR Coag (PPP) [Relative time] 1.0 {INR} Normal [facility] Comment on above: [...] Performed By: #### P TT, PT #### [address] [address] [facility] PT Coag (PPP) [Time] 11.9 s Normal 9.0-12.9 [facility] Comment on above: Result Comment: A he matocrit value greater than 55% may lead to inaccurate results in coagulation testing. Patients having hematocrit values >55% require a special collection tube for coagulation studies. Please contact the laboratory at [phone] for redraw instructions. Performed By: #### P TT, PT #### [facility] [address] [place] [id number] [facility] Prothrombin time (PT)Ordered By: Nathan Hathaway on 11-17-2024 PT Coag (PPP) [Time] Prothrombin time (PT) 9.0- 12.9 [facility] Comment on above: A hematocrit value g reater than 55% may lead to inaccurate results in coagulation testing. Patients having hematocrit values >55% require a special collection tube for coagulation studies. Please contact the laboratory at [phone] for redraw instructions. US needle aspirationon 11-17 US needle aspiration [facility] [place] [address] [place] [address] Ultrasound Report Signed Patient: Lashaun Joaquin MR#: [id number] : 1940 Acct:[id number] Age/Sex: 84 / F ADM Date: 11/17/24 Loc: Room: Type: [facility] Attending Dr: Nathan Hathaway DO Ordering Provider: [...] Seth Ley M.D.11/17/2024 12:41 PM Dictation Location: [place] [address] Tech: Deja Lipscomb Transcribed By: LAURA 11/17/24 1241 Dictated By: Seth Ley DO 11/17/24 1159 Signed By: 11/17/24 1241 Normal [facility] aPTT in Platelet poor plasma by Coagulation assayOrdered By: Nathan Hathaway on 11-17-2024 aPTT Coag (PPP) [Time] Activated partial thromboplastin time (aPTT) in platelet poor plasma by coagulation a 25.1-36.5 [facility] Comment on above: A hematocrit value g reater than 55% may lead to inaccurate results in coagulation testing. Patients having hematocrit values >55% require a special collection tube for coagulation studies. Please contact the laboratory at [phone] for redraw instructions. Estimated glomerular filtrat ion rate (GFR) non- Americanon 09-12-2024 GFR/1.73 sq M.predicted among non-blacks MDRD (S/P/Bld) [Vol rate/Area] Estimated glomerular filtration rate (GFR) non- Low >=60 mL/min/1.73 m 2 [facility] - Chemistry and C hemistry - challengeon 09-12-2024 Calcium [Mass/Vol] 8.6 mg/dL 8.5-10.1 [facility] Chloride [Moles/Vol] 108 mmol/L High 98-107 [facility] CO2 [Moles/Vol] 27.0 mmol/L 21.0-32.0 [facility] Creatinine [Mass/Vol] 1.39 mg/dL High 0.55-1.02 [facility] Free T4 [Mass/Vol] 0.80 ng/dL 0.76-1.46 [facility] GFR/1.73 sq M.predicted MDRD (S/P/Bld) [Vol rate/Area] 44 mL/min/{1.73_m2} Low >=60 mL/min/1.73 m 2 [facility] Glucose [Mass/Vol] 85 mg/dL 74-106 [facility] Potassium [Moles/Vol] 4.5 mmol/L 3.5-5.1 [facility] Sodium [Moles/Vol] 144 mmol/L 136-145 [facility] TSH Qn 3.767 m[IU]/L High 0.358-3.740 [facility] Urea nitrogen [Mass/Vol] 20.0 mg/dL High 7.0-18.0 [facility] Urea nitrogen/Creatinine [Mass ratio] 14.4 mg/mg [facility] Serum or plasma anion gap de terminationon 09-12-2024 Anion gap [Moles/Vol] Serum or plasma an ion gap determination [facility] Estimated glomerular filtrat ion rate (GFR) non- Americanon 05-20-2024 GFR/1.73 sq M.predicted among non-blacks MDRD (S/P/Bld) [Vol rate/Area] 39 mL/min/{1.73_m2} Low >=60 [facility] - Chemistry and C hemistry - challengeon 05-20-2024 Calcium [Mass/Vol] 8.8 mg/dL 8.5-10.1 [facility] Chloride [Moles/Vol] 106 mmol/L 98-107 [facility] CO2 [Moles/Vol] 30.8 mmol/L 21.0-32.0 [facility] Creatinine [Mass/Vol] 1.30 mg/dL High 0.55-1.02 [facility] GFR/1.73 sq M.predicted MDRD (S/P/Bld) [Vol rate/Area] 48 mL/min/{1.73_m2} Low >=60 [facility] Glucose [Mass/Vol] 89 mg/dL 74-106 [facility] Potassium [Moles/Vol] 4.3 mmol/L 3.5-5.1 [facility] Sodium [Moles/Vol] 143 mmol/L 136-145 [facility] Urea nitrogen [Mass/Vol] 24.0 mg/dL High 7.0-18.0 [facility] Urea nitrogen/Creatinine [Mass ratio] 18.5 mg/mg [facility] Serum or plasma anion gap de terminationon 05-20-2024 Anion gap [Moles/Vol] 10.5 mmol/L [facility] Estimated glomerular filtrat ion rate (GFR) non- Americanon 04-30-2024 GFR/1.73 sq M.predicted among non-blacks MDRD (S/P/Bld) [Vol rate/Area] 37 mL/min/{1.73_m2} Low >=60 [facility] Laboratory - Chemistry and C hemistry - challengeon 04-30-2024 Calcium [Mass/Vol] 8.5 mg/dL 8.5-10.1 [facility] Chloride [Moles/Vol] 106 mmol/L 98-107 [facility] CO2 [Moles/Vol] 28.7 mmol/L 21.0-32.0 [facility] Creatinine [Mass/Vol] 1.36 mg/dL High 0.55-1.02 [facility] GFR/1.73 sq M.predicted MDRD (S/P/Bld) [Vol rate/Area] 45 mL/min/{1.73_m2} Low >=60 [facility] Glucose [Mass/Vol] 98 mg/dL 74-106 [facility] Potassium [Moles/Vol] 4.3 mmol/L 3.5-5.1 [facility] Sodium [Moles/Vol] 142 mmol/L 136-145 [facility] Urea nitrogen [Mass/Vol] 26.0 mg/dL High 7.0-18.0 [facility] Urea nitrogen/Creatinine [Mass ratio] 19.1 mg/mg [facility] Serum or plasma anion gap de terminationon 04-30-2024 Anion gap [Moles/Vol] 11.6 mmol/L [facility] NM Heart Perfusion W stress [...] Faustino Zuniga 03/12/2024 4:34 PM Dictation workstation: [id number] Interpreted By: Faustino Zuniga, and Gustavo Ignacio STUDY: MYOCARDIAL PERFUSION STRESS TEST WITH LEXISCAN Performing facility: [facility], [address] [place] [address], [address], [place] [address] [facility] Provider: Holden Rosado RN, PERFECT BIND MACHINE OPERATOR PCP: Dr. Ksenia Hathaway Supervising provider: [facility] Perry DO[facility] INDICATION: ASHD HISTORY: Gender: F; Age: 83 y/o ; Height: HT 165.1 cm cm; Weight: WT 88.905 kg kg. CAD; High Cholesterol; HTN; Fatigue; Quit smoking 44 years ago. Cardiac catheterization on 2022. PTCA on 2022. COMPARISON: Previous nuclear testing completed at [place]. ACCESSION NUMBER(S): [id number] ORDERING CLINICIAN: HOLDEN ROSADO TECHNIQUE: ONE DAY [...] PERFUSION STRESS TEST WITH LEXISCAN Performing facility: [facility], [address] [place] [address], [address], [place] [address] [facility] Provider: Holden Rosado RN, PERFECT BIND MACHINE OPERATOR PCP: Dr. Ksenia Hathaway Supervising provider: Anthony Perry DO, [facility] INDICATION: ASHD HISTORY: Gender: F; Age: 83 y/o ; Height: HT 165.1 cm cm; Weight: WT 88.905 kg kg. CAD; High Cholesterol; HTN; Fatigue; Quit smoking 44 years ago. Cardiac catheterization on 2022. PTCA on 2022. COMPARISON: Previous nuclear testing completed [id number] at [place]. ACCESSION NUMBER(S): [id number] ORDERING CLINICIAN: HOLDEN ROSADO TECHNIQUE: ONE DAY [...] Faustino Zuniga 03/12/2024 4:34 PM Dictation workstation: [id number] [facility] Work Phone: Radiology Study observation (narrative) [facility] Work Phone: NM Heart Perfusion W stress and W radionuclide IVOrdered By: Faustino Zuniga on 03-12-2024 [facility] Work Phone: Basic Metabolic Panelon 05-0 GFR/1.73 sq M.predicted MDRD (S/P/Bld) [Vol rate/Area] 39.134 mL/min/{1.73_m2} Normal [facility] Comment on above: Performed By: #### B MP ####[address] [address] [facility] Calcium [Mass/volume] in Ser um or PlasmaOrdered By: Holden Rosado on 03-05-2024 Calcium [Mass/Vol] 9.2 mg/dL Normal 8.6-10.3 [facility] Comment on above: Result Comment: PERF ORMED BY: [facility] [address] [place] [address] PATHOLOGIST SALES OFFICE COORDINATOR JAMAAL MO M.D. Performed By: #### B MP ####[place] [id number] [facility] Carbon dioxide, total [Moles /volume] in Serum or PlasmaOrdered By: Holden Rosado on 03-05-2024 CO2 [Moles/Vol] 32.1 mmol/L High 21.0-31.0 [facility] Comment on above: Performed By: #### B MP ####[address] [address] [place] Chloride [Moles/volume] in S courtney or PlasmaOrdered By: Holden Rosado on 03-05-2024 Chloride [Moles/Vol] 104 mmol/L Normal 98-107 [facility] Comment on above: Performed By: #### B MP ####[place] [id number] [place] Creatinine [Mass/volume] in Serum or PlasmaOrdered By: Holden Rosado on 03-05-2024 Creatinine [Mass/Vol] 1.36 mg/dL High 0.60-1.20 [facility] Comment on above: Performed By: #### B MP ####[place] [id number] [place] Glucose [Mass/volume] in Ser um or PlasmaOrdered By: Holden Rosado on 05-08-2024 Glucose [Mass/Vol] 79 mg/dL Normal 70-100 [facility] Comment on above: ADA recommended refe rence rangeRandom Glucose Reference Range is dependent on time and content of last meal. Glucose of more than 200 mg/dL in a nonstressed, ambulatory subject supports the diagnosis of Diabetes Mellitus. Result Comment: [place] [facility] Glucose Reference Range is dependent on time and content of last meal. Glucose of more than 200 mg/dL in a nonstressed, ambulatory subject supports the diagnosis of Diabetes Mellitus. ADA recommended reference range Performed By: #### B MP ####[address] No Panel InformationOrdered By: Holden Rosado on 03-05-2024 Estimated GFR (CKD-EPI) 39.134 mL/Min [facility] Creatinine Clearance (Chem N/A [facility] Potassium [Moles/volume] in Serum or PlasmaOrdered By: Holden Rosado on 03-05-2024 Potassium [Moles/Vol] 5.2 mmol/L High 3.5-5.1 [facility] Comment on above: Performed By: #### B MP ####[address] Serum or plasma anion gap de terminationOrdered By: Holden Rosado on 03-05-2024 Anion gap [Moles/Vol] 10.1 mmol/L Normal 6.0-15.0 [facility] Comment on above: Performed By: #### B MP ####[address] Sodium [Moles/volume] in Ser um or PlasmaOrdered By: Holden Rosado on 03-05-2024 Sodium [Moles/Vol] 141 mmol/L Normal 136-145 [facility] Comment on above: Performed By: #### B MP ####[address] Urea nitrogen [Mass/volume] in Serum or PlasmaOrdered By: Holden Rosado on 03-05-2024 Urea nitrogen [Mass/Vol] 26 mg/dL High 7-25 [facility] Comment on above: Performed By: #### B MP ####[facility] [address] [place] [address] [facility] Basophils Auto (Bld) [#/Vol] on 02-20-2024 Basophils (Bld) [#/Vol] 0.0 10 3/uL 0.0-0.1 [facility] Basophils/100 WBC Auto (Bld) on 02-20-2024 Basophils/100 WBC (Bld) 0.8 % 0.2-2.0 [facility] Eosinophils/100 WBC Auto (Bl d)on 02-20-2024 Eosinophils/100 WBC (Bld) 2.8 % 0.9-7.0 [facility] Erythrocyte distribution wid th Auto (RBC) [Ratio]on 02-20-2024 Erythrocyte distribution width (RBC) [Ratio] 13.1 % 11.0-15.0 [facility] Estimated glomerular filtrat ion rate (GFR) non- Americanon 02-20-2024 GFR/1.73 sq M.predicted among non-blacks MDRD (S/P/Bld) [Vol rate/Area] 49 mL/min/{1.73_m2} >=60 [facility] Globulin Calc (S) [Mass/Vol] on 02-20-2024 Globulin (S) [Mass/Vol] 2.7 g/dL [facility] Hematocrit Auto (Bld) [Volum e fraction]on 02-20-2024 Hematocrit (Bld) [Volume fraction] 29.2 % 36.0-48.0 [facility] Hemoglobin [Mass/volume] in Bloodon 02-20-2024 Hemoglobin (Bld) [Mass/Vol] 9.5 g/dL 12.0-16.0 [facility] - Chemistry and C hemistry - challengeon 02-20-2024 Albumin [Mass/Vol] 2.9 g/dL 3.4-5.0 [facility] ALP [Catalytic activity/Vol] 44 U/L 46-116 [facility] ALT [Catalytic activity/Vol] 13 U/L 14-59 [facility] AST [Catalytic activity/Vol] 14 U/L 15-37 [facility] Bilirubin [Mass/Vol] 0.6 mg/dL 0.2-1.0 [facility] Calcium [Mass/Vol] 8.9 mg/dL 8.5-10.1 [facility] Chloride [Moles/Vol] 107 mmol/L 98-107 [facility] CO2 [Moles/Vol] 27.9 mmol/L 21.0-32.0 [facility] Creatinine [Mass/Vol] 1.08 mg/dL 0.55-1.02 [facility] GFR/1.73 sq M.predicted MDRD (S/P/Bld) [Vol rate/Area] 59 mL/min/{1.73_m2} >=60 [facility] Glucose [Mass/Vol] 83 mg/dL 74-106 [facility] Potassium [Moles/Vol] 3.8 mmol/L 3.5-5.1 [facility] Protein [Mass/Vol] 5.6 g/dL 6.4-8.2 [facility] Sodium [Moles/Vol] 141 mmol/L 136-145 [facility] Urea nitrogen [Mass/Vol] 18.0 mg/dL 7.0-18.0 [facility] Urea nitrogen/Creatinine [Mass ratio] 16.7 mg/mg [facility] Laboratory - Hematology and Cell countson 02-20-2024 Immature granulocytes/100 WBC (Bld) 0.2 % 0.0-0.5 [facility] Leukocytes [#/volume] correc miguel for nucleated erythrocytes in Blood by Automated counon 02-20-2024 WBC corrected for nucl RBC Auto (Bld) [#/Vol] 4.7 10 3/uL 4.0-11.0 [facility] Lymphocytes Auto (Bld) [#/Vo l]on 02-20-2024 Lymphocytes (Bld) [#/Vol] 1.0 10 3/uL 1.2-3.8 [facility] Lymphocytes/100 WBC Auto (Bl d)on 02-20-2024 Lymphocytes/100 WBC (Bld) 21.8 % 20.5-60.0 [facility] MCH Auto (RBC) [Entitic mass ]on 02-20-2024 MCH (RBC) [Entitic mass] 29.2 pg 26.7-34.0 [facility] MCHC Auto (RBC) [Mass/Vol]on 02-20-2024 MCHC (RBC) [Mass/Vol] 32.5 g/dL 29.9-35.2 [facility] MCV Auto (RBC) [Entitic vol] on 02-20-2024 MCV (RBC) [Entitic vol] 89.8 fL 81.0-99.0 [facility] Monocytes Auto (Bld) [#/Vol] on 02-20-2024 Monocytes (Bld) [#/Vol] 0.7 10 3/uL 0.3-0.8 [facility] Monocytes/100 WBC Auto (Bld) on 02-20-2024 Monocytes/100 WBC (Bld) 14.2 % 1.7-12.0 [facility] Neutrophils Auto (Bld) [#/Vo l]on 02-20-2024 Neutrophils (Bld) [#/Vol] 2.8 10 3/uL 1.4-6.5 [facility] Neutrophils/100 WBC Auto (Bl d)on 02-20-2024 Neutrophils/100 WBC (Bld) 60.2 % 43.0-75.0 [facility] No Panel Informationon 02-19 Eosinophils # (Auto) 0.1 10 3/uL 0.0-0.7 [facility] Immature Granulocyte # (Auto) 0.01 10 3/uL 0.00-0.03 [facility] Platelet mean volume Auto (B ld) [Entitic vol]on 02-20-2024 Platelet mean volume (Bld) [Entitic vol] 10.5 fL 9.5-13.5 [facility] Platelets Auto (Bld) [#/Vol] on 02-20-2024 Platelets (Bld) [#/Vol] 250 10 3/uL 150-450 [facility] RBC Auto (Bld) [#/Vol]on RBC (Bld) [#/Vol] 3.25 10 6/uL 4.20-5.40 [facility] Serum or plasma albumin/glob ulin mass ratioon 02-20-2024 Albumin/Globulin [Mass ratio] 1.1 {ratio} [facility] Serum or plasma anion gap de terminationon 02-20-2024 Anion gap [Moles/Vol] 9.9 mmol/L [facility] Basophils Auto (Bld) [#/Vol] on 02-19-2024 Basophils (Bld) [#/Vol] 0.0 10 3/uL 0.0-0.1 [facility] Basophils/100 WBC Auto (Bld) on 02-19-2024 Basophils/100 WBC (Bld) 0.8 % 0.2-2.0 [facility] Cholesterol in LDL Calc [Mas s/Vol]on 02-19-2024 Cholesterol in LDL [Mass/Vol] 100.4 mg/dL [facility] Comment on above: <100 mg/dl [id number] 0-129 mg/dl NEAR OR ABOVE [id number] mg/dl BORDERLINE [id number] mg/dl HIGH>190 mg/dl VERY HIGH Cholesterol in VLDL Calc [Ma ss/Vol]on 02-19-2024 Cholesterol in VLDL [Mass/Vol] 15.6 mg/dL [facility] Eosinophils/100 WBC Auto (Bl d)on 02-19-2024 Eosinophils/100 WBC (Bld) 1.9 % 0.9-7.0 [facility] Erythrocyte distribution wid th Auto (RBC) [Ratio]on 02-19-2024 Erythrocyte distribution width (RBC) [Ratio] 13.2 % 11.0-15.0 [facility] Estimated glomerular filtrat ion rate (GFR) non- Americanon 02-19-2024 GFR/1.73 sq M.predicted among non-blacks MDRD (S/P/Bld) [Vol rate/Area] 44 mL/min/{1.73_m2} >=60 [facility] Globulin Calc (S) [Mass/Vol] on 02-19-2024 Globulin (S) [Mass/Vol] 2.8 g/dL [facility] Hematocrit Auto (Bld) [Volum e fraction]on 02-19-2024 Hematocrit (Bld) [Volume fraction] 31.2 % 36.0-48.0 [facility] Hemoglobin [Mass/volume] in Bloodon 02-19-2024 Hemoglobin (Bld) [Mass/Vol] 10.0 g/dL 12.0-16.0 [facility] - Chemistry and C hemistry - challengeon 02-19-2024 Albumin [Mass/Vol] 3.2 g/dL 3.4-5.0 [facility] ALP [Catalytic activity/Vol] 49 U/L 46-116 [facility] ALT [Catalytic activity/Vol] 15 U/L 14-59 [facility] AST [Catalytic activity/Vol] 15 U/L 15-37 [facility] Bilirubin [Mass/Vol] 0.5 mg/dL 0.2-1.0 [facility] Calcium [Mass/Vol] 9.4 mg/dL 8.5-10.1 [facility] Chloride [Moles/Vol] 108 mmol/L 98-107 [facility] Cholesterol [Mass/Vol] 158 mg/dL <=200 [facility] Cholesterol in HDL [Mass/Vol] 42 mg/dL 40-60 [facility] Comment on above: > or =60 mg/dl - LOW CARDIOVASCULAR RISK<40 mg/dl - HIGH CARDIOVASCULAR RISK CO2 [Moles/Vol] 28.7 mmol/L 21.0-32.0 [facility] Creatinine [Mass/Vol] 1.18 mg/dL 0.55-1.02 [facility] GFR/1.73 sq M.predicted MDRD (S/P/Bld) [Vol rate/Area] 53 mL/min/{1.73_m2} >=60 [facility] Glucose [Mass/Vol] 93 mg/dL 74-106 [facility] Potassium [Moles/Vol] 4.0 mmol/L 3.5-5.1 [facility] Protein [Mass/Vol] 6.0 g/dL 6.4-8.2 [facility] Sodium [Moles/Vol] 145 mmol/L 136-145 [facility] Triglyceride [Mass/Vol] 78 mg/dL <=150 [facility] TSH Qn 4.696 m[IU]/L 0.358-3.740 [facility] Urea nitrogen [Mass/Vol] 20.0 mg/dL 7.0-18.0 [facility] Urea nitrogen/Creatinine [Mass ratio] 16.9 mg/mg [facility] - Hematology and Cell countson 02-19-2024 Immature granulocytes/100 WBC (Bld) 0.6 % 0.0-0.5 [facility] Leukocytes [#/volume] correc miguel for nucleated erythrocytes in Blood by Automated counon 02-19-2024 WBC corrected for nucl RBC Auto (Bld) [#/Vol] 5.3 10 3/uL 4.0-11.0 [facility] Lymphocytes Auto (Bld) [#/Vo l]on 02-19-2024 Lymphocytes (Bld) [#/Vol] 1.1 10 3/uL 1.2-3.8 [facility] Lymphocytes/100 WBC Auto (Bl d)on 02-19-2024 Lymphocytes/100 WBC (Bld) 21.3 % 20.5-60.0 [facility] MCH Auto (RBC) [Entitic mass ]on 02-19-2024 MCH (RBC) [Entitic mass] 29.6 pg 26.7-34.0 [facility] MCHC Auto (RBC) [Mass/Vol]on 02-19-2024 MCHC (RBC) [Mass/Vol] 32.1 g/dL 29.9-35.2 [facility] MCV Auto (RBC) [Entitic vol] on 02-19-2024 MCV (RBC) [Entitic vol] 92.3 fL 81.0-99.0 [facility] Monocytes Auto (Bld) [#/Vol] on 02-19-2024 Monocytes (Bld) [#/Vol] 0.6 10 3/uL 0.3-0.8 [facility] Monocytes/100 WBC Auto (Bld) on 02-19-2024 Monocytes/100 WBC (Bld) 11.1 % 1.7-12.0 [facility] Neutrophils Auto (Bld) [#/Vo l]on 02-19-2024 Neutrophils (Bld) [#/Vol] 3.4 10 3/uL 1.4-6.5 [facility] Neutrophils/100 WBC Auto (Bl d)on 02-19-2024 Neutrophils/100 WBC (Bld) 64.3 % 43.0-75.0 [facility] No Panel Informationon 02-18 Eosinophils # (Auto) 0.1 10 3/uL 0.0-0.7 [facility] Immature Granulocyte # (Auto) 0.03 10 3/uL 0.00-0.03 [facility] Platelet mean volume Auto (B ld) [Entitic vol]on 02-19-2024 Platelet mean volume (Bld) [Entitic vol] 10.4 fL 9.5-13.5 [facility] Platelets Auto (Bld) [#/Vol] on 02-19-2024 Platelets (Bld) [#/Vol] 262 10 3/uL 150-450 [facility] RBC Auto (Bld) [#/Vol]on RBC (Bld) [#/Vol] 3.38 10 6/uL 4.20-5.40 [facility] Serum or plasma albumin/glob ulin mass ratioon 02-19-2024 Albumin/Globulin [Mass ratio] 1.1 {ratio} [facility] Serum or plasma anion gap de terminationon 02-19-2024 Anion gap [Moles/Vol] 12.3 mmol/L [facility] Serum or plasma total choles terol/high density lipoprotein (HDL) cholesterol mass anastasia 02-19-2024 Cholesterol.total/Chol esterol in HDL [Mass ratio] 3.8 {ratio} [facility] Comment on above: 3.3 - 4.4 LOW RISK4. 4 - 7.1 AVERAGE RISK7.1 - 11.0 MODERATE RISK>11.0 HIGH RISK Basophils Auto (Bld) [#/Vol] on 02-18-2024 Basophils (Bld) [#/Vol] 0.0 10 3/uL 0.0-0.1 [facility] Basophils/100 WBC Auto (Bld) on 02-18-2024 Basophils/100 WBC (Bld) 0.4 % 0.2-2.0 [facility] Eosinophils/100 WBC Auto (Bl d)on 02-18-2024 Eosinophils/100 WBC (Bld) 1.2 % 0.9-7.0 [facility] Erythrocyte distribution wid th Auto (RBC) [Ratio]on 02-18-2024 Erythrocyte distribution width (RBC) [Ratio] 13.2 % 11.0-15.0 [facility] Estimated glomerular filtrat ion rate (GFR) non- Americanon 02-18-2024 GFR/1.73 sq M.predicted among non-blacks MDRD (S/P/Bld) [Vol rate/Area] 34 mL/min/{1.73_m2} >=60 [facility] Hematocrit Auto (Bld) [Volum e fraction]on 02-18-2024 Hematocrit (Bld) [Volume fraction] 31.7 % 36.0-48.0 [facility] Hemoglobin [Mass/volume] in Bloodon 02-18-2024 Hemoglobin (Bld) [Mass/Vol] 10.3 g/dL 12.0-16.0 [facility] - Chemistry and C hemistry - challengeon 02-18-2024 Magnesium [Mass/Vol] 2.3 mg/dL 1.8-2.4 [facility] Natriuretic peptide B (Bld) [Mass/Vol] 800.0 pg/mL <=1800.0 [facility] Calcium [Mass/Vol] 9.0 mg/dL 8.5-10.1 [facility] Chloride [Moles/Vol] 106 mmol/L 98-107 [facility] CO2 [Moles/Vol] 30.4 mmol/L 21.0-32.0 [facility] Creatinine [Mass/Vol] 1.46 mg/dL 0.55-1.02 [facility] GFR/1.73 sq M.predicted MDRD (S/P/Bld) [Vol rate/Area] 42 mL/min/{1.73_m2} >=60 [facility] Glucose [Mass/Vol] 102 mg/dL 74-106 [facility] Potassium [Moles/Vol] 4.1 mmol/L 3.5-5.1 [facility] Sodium [Moles/Vol] 144 mmol/L 136-145 [facility] Urea nitrogen [Mass/Vol] 21.0 mg/dL 7.0-18.0 [facility] Urea nitrogen/Creatinine [Mass ratio] 14.4 mg/mg [facility] - Hematology and Cell countson 02-18-2024 Immature granulocytes/100 WBC (Bld) 0.7 % 0.0-0.5 [facility] Leukocytes [#/volume] correc miguel for nucleated erythrocytes in Blood by Automated counon 02-18-2024 WBC corrected for nucl RBC Auto (Bld) [#/Vol] 6.8 10 3/uL 4.0-11.0 [facility] Lymphocytes Auto (Bld) [#/Vo l]on 02-18-2024 Lymphocytes (Bld) [#/Vol] 0.8 10 3/uL 1.2-3.8 [facility] Lymphocytes/100 WBC Auto (Bl d)on 02-18-2024 Lymphocytes/100 WBC (Bld) 11.2 % 20.5-60.0 [facility] MCH Auto (RBC) [Entitic mass ]on 02-18-2024 MCH (RBC) [Entitic mass] 29.3 pg 26.7-34.0 [facility] MCHC Auto (RBC) [Mass/Vol]on 02-18-2024 MCHC (RBC) [Mass/Vol] 32.5 g/dL 29.9-35.2 [facility] MCV Auto (RBC) [Entitic vol] on 02-18-2024 MCV (RBC) [Entitic vol] 90.1 fL 81.0-99.0 [facility] Monocytes Auto (Bld) [#/Vol] on 02-18-2024 Monocytes (Bld) [#/Vol] 0.6 10 3/uL 0.3-0.8 [facility] Monocytes/100 WBC Auto (Bld) on 02-18-2024 Monocytes/100 WBC (Bld) 9.5 % 1.7-12.0 [facility] Neutrophils Auto (Bld) [#/Vo l]on 02-18-2024 Neutrophils (Bld) [#/Vol] 5.2 10 3/uL 1.4-6.5 [facility] Neutrophils/100 WBC Auto (Bl d)on 04-22-2024 Neutrophils/100 WBC (Bld) 77.0 % 43.0-75.0 [facility] No Panel Informationon 02-17 Troponin I High Sensitivity 11.1 pg/mL 4.0-51.3 [facility] Comment on above: CUT-OFF POINTS HAVE [...] Eosinophils # (Auto) 0.1 10 3/uL 0.0-0.7 [facility] Immature Granulocyte # (Auto) 0.05 10 3/uL 0.00-0.03 [facility] Platelet mean volume Auto (B ld) [Entitic vol]on 02-18-2024 Platelet mean volume (Bld) [Entitic vol] 10.1 fL 9.5-13.5 [facility] Platelets Auto (Bld) [#/Vol] on 02-18-2024 Platelets (Bld) [#/Vol] 255 10 3/uL 150-450 [facility] RBC Auto (Bld) [#/Vol]on RBC (Bld) [#/Vol] 3.52 10 6/uL 4.20-5.40 [facility] Serum or plasma anion gap de terminationon 02-18-2024 Anion gap [Moles/Vol] 11.7 [facility] Basophils Auto (Bld) [#/Vol] on 02-02-2024 Basophils (Bld) [#/Vol] 0.1 10 3/uL 0.0-0.1 [facility] Basophils/100 WBC Auto (Bld) on 02-02-2024 Basophils/100 WBC (Bld) 1.1 % 0.2-2.0 [facility] Cholesterol in LDL Calc [Mas s/Vol]on 02-02-2024 Cholesterol in LDL [Mass/Vol] 113.6 mg/dL [facility] Comment on above: <100 mg/dl [id number] 0-129 mg/dl NEAR OR ABOVE [id number] mg/dl BORDERLINE [id number] mg/dl HIGH>190 mg/dl VERY HIGH Cholesterol in VLDL Calc [Ma ss/Vol]on 02-02-2024 Cholesterol in VLDL [Mass/Vol] 10.4 mg/dL [facility] Eosinophils/100 WBC Auto (Bl d)on 02-02-2024 Eosinophils/100 WBC (Bld) 2.3 % 0.9-7.0 [facility] Erythrocyte distribution wid th Auto (RBC) [Ratio]on 02-02-2024 Erythrocyte distribution width (RBC) [Ratio] 13.1 % 11.0-15.0 [facility] Estimated glomerular filtrat ion rate (GFR) non- Americanon 02-02-2024 GFR/1.73 sq M.predicted among non-blacks MDRD (S/P/Bld) [Vol rate/Area] 34 mL/min/{1.73_m2} >=60 [facility] Globulin Calc (S) [Mass/Vol] on 02-02-2024 Globulin (S) [Mass/Vol] 3.0 g/dL [facility] Hematocrit Auto (Bld) [Volum e fraction]on 02-02-2024 Hematocrit (Bld) [Volume fraction] 34.7 % 36.0-48.0 [facility] Hemoglobin [Mass/volume] in Bloodon 02-02-2024 Hemoglobin (Bld) [Mass/Vol] 10.9 g/dL 12.0-16.0 [facility] - Chemistry and C hemistry - challengeon 02-02-2024 Albumin [Mass/Vol] 3.4 g/dL 3.4-5.0 [facility] ALP [Catalytic activity/Vol] 52 U/L 46-116 [facility] ALT [Catalytic activity/Vol] 13 U/L 14-59 [facility] AST [Catalytic activity/Vol] 14 U/L 15-37 [facility] Bilirubin [Mass/Vol] 0.3 mg/dL 0.2-1.0 [facility] Calcium [Mass/Vol] 9.3 mg/dL 8.5-10.1 [facility] Chloride [Moles/Vol] 109 mmol/L 98-107 [facility] Cholesterol [Mass/Vol] 169 mg/dL <=200 [facility] Cholesterol in HDL [Mass/Vol] 45 mg/dL 40-60 [facility] Comment on above: > or =60 mg/dl - LOW CARDIOVASCULAR RISK<40 mg/dl - HIGH CARDIOVASCULAR RISK CO2 [Moles/Vol] 29.8 mmol/L 21.0-32.0 [facility] Creatinine [Mass/Vol] 1.47 mg/dL 0.55-1.02 [facility] GFR/1.73 sq M.predicted MDRD (S/P/Bld) [Vol rate/Area] 41 mL/min/{1.73_m2} >=60 [facility] Glucose [Mass/Vol] 104 mg/dL 74-106 [facility] Potassium [Moles/Vol] 4.9 mmol/L 3.5-5.1 [facility] Protein [Mass/Vol] 6.4 g/dL 6.4-8.2 [facility] Sodium [Moles/Vol] 147 mmol/L 136-145 [facility] Triglyceride [Mass/Vol] 52 mg/dL <=150 [facility] TSH Qn 3.613 m[IU]/L 0.358-3.740 [facility] Urea nitrogen [Mass/Vol] 24.0 mg/dL 7.0-18.0 [facility] Urea nitrogen/Creatinine [Mass ratio] 16.3 mg/mg [facility] Laboratory - Hematology and Cell countson 02-02-2024 Immature granulocytes/100 WBC (Bld) 0.4 % 0.0-0.5 [facility] Leukocytes [#/volume] correc miguel for nucleated erythrocytes in Blood by Automated counon 02-02-2024 WBC corrected for nucl RBC Auto (Bld) [#/Vol] 5.6 10 3/uL 4.0-11.0 [facility] Lymphocytes Auto (Bld) [#/Vo l]on 02-02-2024 Lymphocytes (Bld) [#/Vol] 1.1 10 3/uL 1.2-3.8 [facility] Lymphocytes/100 WBC Auto (Bl d)on 02-02-2024 Lymphocytes/100 WBC (Bld) 20.2 % 20.5-60.0 [facility] MCH Auto (RBC) [Entitic mass ]on 02-02-2024 MCH (RBC) [Entitic mass] 29.8 pg 26.7-34.0 [facility] MCHC Auto (RBC) [Mass/Vol]on 02-02-2024 MCHC (RBC) [Mass/Vol] 31.4 g/dL 29.9-35.2 [facility] MCV Auto (RBC) [Entitic vol] on 02-02-2024 MCV (RBC) [Entitic vol] 94.8 fL 81.0-99.0 [facility] Monocytes Auto (Bld) [#/Vol] on 02-02-2024 Monocytes (Bld) [#/Vol] 0.7 10 3/uL 0.3-0.8 [facility] Monocytes/100 WBC Auto (Bld) on 02-02-2024 Monocytes/100 WBC (Bld) 11.7 % 1.7-12.0 [facility] Neutrophils Auto (Bld) [#/Vo l]on 02-02-2024 Neutrophils (Bld) [#/Vol] 3.6 10 3/uL 1.4-6.5 [facility] Neutrophils/100 WBC Auto (Bl d)on 02-02-2024 Neutrophils/100 WBC (Bld) 64.3 % 43.0-75.0 [facility] No Panel Informationon 02-01 Eosinophils # (Auto) 0.1 10 3/uL 0.0-0.7 [facility] Immature Granulocyte # (Auto) 0.02 10 3/uL 0.00-0.03 [facility] Platelet mean volume Auto (B ld) [Entitic vol]on 02-02-2024 Platelet mean volume (Bld) [Entitic vol] 10.6 fL 9.5-13.5 [facility] Platelets Auto (Bld) [#/Vol] on 02-02-2024 Platelets (Bld) [#/Vol] 253 10 3/uL 150-450 [facility] RBC Auto (Bld) [#/Vol]on RBC (Bld) [#/Vol] 3.66 10 6/uL 4.20-5.40 [facility] Serum or plasma albumin/glob ulin mass ratioon 02-02-2024 Albumin/Globulin [Mass ratio] 1.1 {ratio} [facility] Serum or plasma anion gap de terminationon 02-02-2024 Anion gap [Moles/Vol] 13.1 mmol/L Fi [facility] Serum or plasma total choles terol/high density lipoprotein (HDL) cholesterol mass anastasia 02-02-2024 Cholesterol.total/Chol esterol in HDL [Mass ratio] 3.8 {ratio} [facility] Comment on above: 3.3 - 4.4 LOW RISK4. 4 - 7.1 AVERAGE RISK7.1 - 11.0 MODERATE RISK>11.0 HIGH RISK UA RANDOM W/MICROSCOPICon Clarity (U) CLEAR CLEAR [employer] Other Color (U) DK YELLOW YELLOW [employer] Other Ketones Ql (U) Negative NEGATIVE mg/dL [employer] Other Leukocyte esterase Test strip Ql (U) Negative NEGATIVE [employer] Other pH (U) 6.5 [pH] 5.0-9.0 [employer] Other UA RANDOM W/MICROSCOPIC 0-2 #/HPF Abnormal NONE SEEN #/HPF [employer] Other UA RANDOM W/MICROSCOPIC 5-10 #/HPF Abnormal 0-2 #/HPF [employer] Other UA RANDOM W/MICROSCOPIC see note [employer] Other UA RANDOM W/MICROSCOPIC 1.010 1.005-1.025 [employer] Other UA RANDOM W/MICROSCOPIC Negative NEGATIVE [employer] Other UA RANDOM W/MICROSCOPIC LARGE Abnormal NEGATIVE [employer] Other UA RANDOM W/MICROSCOPIC Positive Abnormal NEGATIVE [employer] Other UA RANDOM W/MICROSCOPIC 1.0 EU/dL 0.2-1.0 EU/dL [employer] Other UA RANDOM W/MICROSCOPIC TRACE #/HPF Abnormal NONE SEEN #/HPF [employer] Other UA RANDOM W/MICROSCOPIC NONE SEEN NONE SEEN [employer] Other UA RANDOM W/MICROSCOPIC RARE #/LPF NONE/RARE #/LPF [employer] Other UA RANDOM W/MICROSCOPIC None Seen #/HPF None Seen #/HPF [employer] Other UA RANDOM W/MICROSCOPIC NONE SEEN #/LPF NONE SEEN #/LPF [employer] Other Urinalysis - DIPSTICKon 06-29 Appearance (U) clear [employer] Other Bilirubin Ql (U) Negative [employer] Other Color (U) light yellow [employer] Other Glucose Ql (U) Negative [employer] Other Hemoglobin Ql (U) +++ [employer] Other Ketones Ql (U) Negative [employer] Other Leukocyte esterase Test strip Ql (U) Negative [employer] Other Nitrite Ql (U) Negative [employer] Other pH (U) 0.2 [pH] [employer] Other Protein Ql (U) trace [employer] Other Specific gravity (U) [Rel density] 1.005 [employer] Other Urobilinogen (U) [Mass/Vol] off chart [employer] Other Urinalysis - DIPSTICK Nor [employer] Other ESR Westergren method (Bld) [Velocity]on 06-05-2023 ESR (Bld) [Velocity] 119 mm/h High 0 - 20 mm/hr [facility] FERRITIN BLDon 06-05-2023 Ferritin [Mass/Vol] 160.0 ng/mL 14.7 - 205.1 ng/mL [facility] Iron and Iron binding capaci ty panelon 06-05-2023 Iron [Mass/Vol] 45 ug/dL 41 - 186 ug/dL [facility] Iron binding capacity [Mass/Vol] 252 ug/dL 232 - 386 ug/dL [facility] Iron/TIBC [Molar ratio] 17.9 % 15.0 - 57.0 % [facility] Basic metabolic 2000 panelon 06-04-2023 Anion gap [Moles/Vol] 10 mmol/L 9 - 18 mmol/L [facility] Calcium [Mass/Vol] 9.2 mg/dL 8.5 - 10. 2 mg/dL [facility] Chloride [Moles/Vol] 106 mmol/L High 97 - 10 5 mmol/L [facility] CO2 [Moles/Vol] 27 mmol/L 22 - 30 mmol/L [facility] Creatinine [Mass/Vol] 1.09 mg/dL High 0.58 - 0.96 mg/dL [facility] Estimated Glomerular Filtration Rate 51 mL/min/1.73m Low >=60 mL/min/1.73 m [facility] Glucose [Mass/Vol] 116 mg/dL High 74 - 99 mg/dL [facility] Potassium [Moles/Vol] 4.3 mmol/L 3.7 - 5.1 mmol/L [facility] Sodium [Moles/Vol] 143 mmol/L 136 - 144 mmol/L [facility] Urea nitrogen [Mass/Vol] 19 mg/dL 7 - 21 mg/dL [facility] CBC W Auto Differential pane l (Bld)on 06-04-2023 Basophils (Bld) [#/Vol] 0.04 10*3/uL <0.11 k/uL [facility] Basophils/100 WBC (Bld) 0.8 % [facility] Differential cell count method Nom (Bld) Auto [facility] Eosinophils (Bld) [#/Vol] 0.14 10*3/uL <0.46 k/uL [facility] Eosinophils/100 WBC (Bld) 2.9 % [facility] Erythrocyte distribution width (RBC) [Ratio] 13.6 % 11.5 - 15.0 % [facility] Hematocrit (Bld) [Volume fraction] 28.8 % Low 36.0 - 46.0 % [facility] Hemoglobin (Bld) [Mass/Vol] 9.2 g/dL Low 11.5 - 15.5 g/dL [facility] Immature granulocytes (Bld) [#/Vol] <0.10 k/uL [facility] Immature granulocytes/100 WBC (Bld) 0.4 % [facility] Lymphocytes (Bld) [#/Vol] 0.83 10*3/uL Low 1.00 - 4.00 k/uL [facility] Lymphocytes/100 WBC (Bld) 17.4 % [facility] MCH (RBC) [Entitic mass] 29.6 pg 26.0 - 34.0 pg [facility] MCHC (RBC) [Mass/Vol] 31.9 g/dL 30.5 - 36.0 g/dL [facility] MCV (RBC) [Entitic vol] 92.6 fL 80.0 - 100.0 fL [facility] Monocytes (Bld) [#/Vol] 0.40 10*3/uL <0.87 k/uL [facility] Monocytes/100 WBC (Bld) 8.4 % [facility] Neutrophils (Bld) [#/Vol] 3.35 10*3/uL 1.45 - 7.50 k/uL [facility] Neutrophils/100 WBC (Bld) 70.1 % [facility] Nucleated RBC (Bld) [#/Vol] <0.01 k/uL [facility] Nucleated RBC/100 WBC (Bld) [Ratio] 0.0 /100 WBC [facility] Platelet mean volume (Bld) [Entitic vol] 10.2 fL 9.0 - 12.7 fL [facility] Platelets (Bld) [#/Vol] 274 10*3/uL 150 - 400 k/uL [facility] RBC (Bld) [#/Vol] 3.11 10*6/uL Low 3.90 - 5.2 0 m/uL [facility] WBC (Bld) [#/Vol] 4.78 10*3/uL 3.70 - 11.00 k/uL [facility] RETIC COUNTon 06-04-2023 Reticulocytes (Bld) [#/Vol] 0.22784 10*3/uL 0.018 - 0.100 M/uL [facility] Reticulocytes (Bld) [#/Vol]o n 06-04-2023 Reticulocytes/100 RBC (Bld) 2.0 % 0.4 - 2.0 % [facility] Basophils Auto (Bld) [#/Vol] Ordered By: Lj Ryan on 05-18-2023 Basophils (Bld) [#/Vol] 0.0 10*3/uL 0.0-0.2 [facility] Basophils/100 WBC Auto (Bld) Ordered By: Lj Ryan on 05-18-2023 Basophils/100 WBC (Bld) 0.7 % . [facility] Calcium [Mass/volume] in Ser um or PlasmaOrdered By: Lj Ryan on 05-18-2023 Calcium [Mass/Vol] 8.9 mg/dL 8.6-10.3 [facility] Carbon dioxide, total [Moles /volume] in Serum or PlasmaOrdered By: Lj Ryan on 05-18-2023 CO2 [Moles/Vol] 30.5 mmol/L 21.0-31.0 [facility] Chloride [Moles/volume] in S courtney or PlasmaOrdered By: Lj Ryan on 05-18-2023 Chloride [Moles/Vol] 103 mmol/L 98-107 [facility] Creatinine [Mass/volume] in Serum or PlasmaOrdered By: Lj Ryan on 05-18-2023 Creatinine [Mass/Vol] 1.37 mg/dL 0.60-1.20 [facility] Eosinophils Auto (Bld) [#/Vo l]Ordered By: Lj Ryan on 05-18-2023 Eosinophils (Bld) [#/Vol] 0.1 10*3/uL 0.0-0.45 [facility] Eosinophils/100 WBC Auto (Bl d)Ordered By: Lj Ryan on 05-18-2023 Eosinophils/100 WBC (Bld) 1.9 % . [facility] Erythrocyte distribution wid th Auto (RBC) [Ratio]Ordered By: Lj Ryan on 05-18-2023 Erythrocyte distribution width (RBC) [Ratio] 14.1 % 11.9-15.3 [facility] Glucose [Mass/volume] in Ser um or PlasmaOrdered By: Lj Ryan on 05-18-2023 Glucose [Mass/Vol] 94 mg/dL 70-100 [facility] Comment on above: ADA recommended refe rence rangeRandom Glucose Reference Range is dependent on time and content of last meal. Glucose of more than 200 mg/dL in a nonstressed, ambulatory subject supports the diagnosis of Diabetes Mellitus. Hematocrit Auto (Bld) [Volum e fraction]Ordered By: Lj Ryan on 05-18-2023 Hematocrit (Bld) [Volume fraction] 28.2 % 34.0-46.4 [facility] Hemoglobin [Mass/volume] in BloodOrdered By: Lj Ryan on 05-18-2023 Hemoglobin (Bld) [Mass/Vol] 9.7 g/dL 11.8-15.4 [facility] Leukocytes [#/volume] correc miguel for nucleated erythrocytes in Blood by Automated counOrdered By: Lj Ryan on 05-18-2023 WBC corrected for nucl RBC Auto (Bld) [#/Vol] 6.0 10*3/uL 3.8-11.6 [facility] Lymphocytes Auto (Bld) [#/Vo l]Ordered By: Lj Ryan on 05-18-2023 Lymphocytes (Bld) [#/Vol] 0.9 10*3/uL 1.00-4.8 [facility] Lymphocytes/100 WBC Auto (Bl d)Ordered By: Lj Ryan on 05-18-2023 Lymphocytes/100 WBC (Bld) 15.1 % . [facility] MCH Auto (RBC) [Entitic mass ]Ordered By: Lj Ryan on 05-18-2023 MCH (RBC) [Entitic mass] 30.2 pg 24.7-34.3 [facility] MCHC Auto (RBC) [Mass/Vol]Or dered By: Lj Ryan on 05-18-2023 MCHC (RBC) [Mass/Vol] 34.4 g/dL 32.0-35.0 [facility] MCV Auto (RBC) [Entitic vol] Ordered By: Lj Ryan on 05-18-2023 MCV (RBC) [Entitic vol] 87.7 fL 80-100 [facility] Magnesium [Mass/volume] in S courtney or PlasmaOrdered By: Lj Ryan on 05-18-2023 Magnesium [Mass/Vol] 2.1 mg/dL 1.9-2.7 [facility] Monocytes Auto (Bld) [#/Vol] Ordered By: Lj Ryan on 05-18-2023 Monocytes (Bld) [#/Vol] 0.5 10*3/uL 0.0-0.8 [facility] Monocytes/100 WBC Auto (Bld) Ordered By: Lj Ryan on 05-18-2023 Monocytes/100 WBC (Bld) 8.7 % . [facility] Neutrophils Auto (Bld) [#/Vo l]Ordered By: Lj Ryan on 05-18-2023 Neutrophils (Bld) [#/Vol] 4.4 10*3/uL 1.8-7.7 [facility] Neutrophils/100 WBC Auto (Bl d)Ordered By: Lj Ryan on 05-18-2023 Neutrophils/100 WBC (Bld) 73.6 % . [facility] No Panel InformationOrdered By: Lj Ryan on 05-18-2023 Estimated GFR (CKD-EPI) 39.034 mL/Min [facility] Creatinine Clearance (Chem 38.04 [facility] Nucleated erythrocytes [Pres ence] in Blood by Automated countOrdered By: Lj Ryan on 05-18-2023 Nucleated RBC Auto Ql (Bld) 0.1 /100{WBC} 0-0.5 [facility] Phosphate [Mass/volume] in S courtney or PlasmaOrdered By: Lj Ryan on 05-18-2023 Phosphate [Mass/Vol] 5.3 mg/dL 3.7-7.2 [facility] Platelet mean volume Auto (B ld) [Entitic vol]Ordered By: Lj Ryan on 05-18-2023 Platelet mean volume (Bld) [Entitic vol] 7.8 fL 6.3-10.7 [facility] Platelets Auto (Bld) [#/Vol] Ordered By: Lj Ryan on 05-18-2023 Platelets (Bld) [#/Vol] 314 10*3/uL 150-450 [facility] Potassium [Moles/volume] in Serum or PlasmaOrdered By: Lj Ryan on 05-18-2023 Potassium [Moles/Vol] 4.0 mmol/L 3.5-5.1 [facility] RBC Auto (Bld) [#/Vol]Ordere d By: Lj Ryan on 05-18-2023 RBC (Bld) [#/Vol] 3.21 10*6/uL 3.60-5.00 [facility] Serum or plasma anion gap de terminationOrdered By: Lj Ryan on 05-18-2023 Anion gap [Moles/Vol] 12.5 mmol/L 6.0-15.0 [facility] Sodium [Moles/volume] in Ser um or PlasmaOrdered By: Lj Ryan on 05-18-2023 Sodium [Moles/Vol] 142 mmol/L 136-145 [facility] Urea nitrogen [Mass/volume] in Serum or PlasmaOrdered By: Lj Ryan on 05-18-2023 Urea nitrogen [Mass/Vol] 21 mg/dL 7-25 [facility] WBC Auto (Bld) [#/Vol]Ordere d By: Lj Ryan on 05-18-2023 WBC (Bld) [#/Vol] 6.0 10*3/uL 3.8-11.6 [facility] Alanine aminotransferase [En zymatic activity/volume] in Serum or PlasmaOrdered By: Fernando Ch on 05-17-2023 ALT [Catalytic activity/Vol] 14 U/L 7-52 [facility] Albumin [Mass/volume] in Ser um or Plasma by Bromocresol green (BCG) dye binding methoOrdered By: Fernando Ch on 05-17-2023 Albumin BCG dye [Mass/Vol] 4.0 g/dL 3.5-5.7 [facility] Alkaline phosphatase [Enzyma tic activity/volume] in Serum or PlasmaOrdered By: Fernando Ch on 05-17-2023 ALP [Catalytic activity/Vol] 44 U/L 34-104 [facility] Aspartate aminotransferase [ Enzymatic activity/volume] in Serum or PlasmaOrdered By: Fernando Ch on 05-17-2023 AST [Catalytic activity/Vol] 16 U/L 13-39 [facility] Bilirubin.total [Mass/volume ] in Serum or PlasmaOrdered By: Fernando Ch on 05-17-2023 Bilirubin [Mass/Vol] 0.7 mg/dL 0.3-1.0 [facility] Creatine kinase [Enzymatic a ctivity/volume] in Serum or PlasmaOrdered By: Fernando Ch on 05-17-2023 CK [Catalytic activity/Vol] 49 U/L 30-223 [facility] Globulin Calc (S) [Mass/Vol] Ordered By: Fernando Ch on 05-17-2023 Globulin (S) [Mass/Vol] 2.9 g/dL [facility] - CoagulationOrde red By: Fernando Ch on 05-17-2023 PT Coag (PPP) [Time] 12.5 s 9.0-12.9 [facility] Monocyte distribution width [Entitic volume] in Blood by AutomatedOrdered By: Fernando Ch on 05-17-2023 Monocyte distribution width Auto (Bld) [Entitic vol] 22.37 % 0.00-20.00 [facility] Comment on above: For adults in ED, MD W > 20.0 may be associated with a higher risk of sepsis during the first 12 hrs of hospital admission Natriuretic peptide B [Mass/ Vol]Ordered By: Fernando Ch on 05-17-2023 Natriuretic peptide B (Bld) [Mass/Vol] 450.0 pg/mL 5-100 [facility] Platelet poor plasma interna tional normalized ratio (INR) by coagulation assay (relatOrdered By: Fernando Ch on 05-17-2023 INR Coag (PPP) [Relative time] 1.1 {INR} [facility] Comment on above: INR Therapeutic Rang [...] on 05-17-2023 Protein [Mass/Vol] 6.9 g/dL 6.4-8.9 [facility] Serum or plasma albumin/glob ulin mass ratioOrdered By: Fernando Ch on 05-17-2023 Albumin/Globulin [Mass ratio] 1.4 {ratio} [facility] Troponin I.cardiac [Mass/vol ume] in Serum or Plasma by Detection limit <= 0.01 ng/Ordered By: Fernando Ch on 05-17-2023 Troponin I.cardiac DL <= 0.01 ng/mL [Mass/Vol] 10.2 pg/mL 0.0-15.0 [facility] Activated partial thrombopla stin time (aPTT) in platelet poor plasma by coagulation aOrdered By: Jonna Perry on 03-08-2023 aPTT Coag (PPP) [Time] 32.0 s 25.1-36.5 [facility] Band form neutrophils/100 WB C Manual cnt (Bld)Ordered By: oJnna Perry on 03-08-2023 Band form neutrophils/100 WBC (Bld) 4 % 0-5 [facility] Basophils Auto (Bld) [#/Vol] Ordered By: Jonna Perry on 03-08-2023 Basophils (Bld) [#/Vol] N/A [facility] Basophils/100 WBC Auto (Bld) Ordered By: Jonna Perry on 03-08-2023 Basophils/100 WBC (Bld) N/A [facility] Basophils/100 WBC Manual cnt (Bld)Ordered By: Jonna Perry on 03-08-2023 Basophils/100 WBC (Bld) 0 % 0-2 [facility] Carbon dioxide, total [Moles /volume] in Serum or PlasmaOrdered By: Jonna Perry on 03-08-2023 CO2 [Moles/Vol] 33.1 mmol/L 21.0-31.0 [facility] Chloride [Moles/volume] in S courtney or PlasmaOrdered By: Jonna Perry on 03-08-2023 Chloride [Moles/Vol] 104 mmol/L 98-107 [facility] Cholesterol [Mass/volume] in Serum or PlasmaOrdered By: Jonna Perry on 03-08-2023 Cholesterol [Mass/Vol] 151 mg/dL 140-200 [facility] Comment on above: Chol less than 200 m g/dl low riskChol 201-239 mg/dl borderline riskChol 240 mg/dl and greater high risk Cholesterol in LDL Calc [Mas s/Vol]Ordered By: Jonna Perry on 03-08-2023 Cholesterol in LDL [Mass/Vol] 100 mg/dL 0-100 [facility] Comment on above: LDL ATP III CLASSIFI CATIONLDL less than 100 mg/dL OptimalLDL 100-129 mg/dL Near or above optimalLDL 130-159 mg/dL Borderline highLDL 160-189 mg/dL HighLDL greater than 189 mg/dL Very high Cholesterol in VLDL Calc [Ma ss/Vol]Ordered By: Jonna Perry on 03-08-2023 Cholesterol in VLDL [Mass/Vol] 13 mg/dL [facility] Creatinine [Mass/volume] in Serum or PlasmaOrdered By: Jonna Perry on 03-08-2023 Creatinine [Mass/Vol] 1.14 mg/dL 0.60-1.20 [facility] Eosinophils Auto (Bld) [#/Vo l]Ordered By: Jonna Perry on 03-08-2023 Eosinophils (Bld) [#/Vol] N/A [facility] Eosinophils/100 WBC Auto (Bl d)Ordered By: Jonna Perry on 03-08-2023 Eosinophils/100 WBC (Bld) N/A [facility] Eosinophils/100 WBC Manual c nt (Bld)Ordered By: Jonna Perry on 03-08-2023 Eosinophils/100 WBC (Bld) 2 % 1-3 [facility] Erythrocyte distribution wid th Auto (RBC) [Ratio]Ordered By: Jonna Perry on 03-08-2023 Erythrocyte distribution width (RBC) [Ratio] 14.1 % 11.9-15.3 [facility] Hematocrit Auto (Bld) [Volum e fraction]Ordered By: Jonna Perry on 03-08-2023 Hematocrit (Bld) [Volume fraction] 30.7 % 34.0-46.4 [facility] Hemoglobin [Mass/volume] in BloodOrdered By: Jonna Perry on 03-08-2023 Hemoglobin (Bld) [Mass/Vol] 10.3 g/dL 11.8-15.4 [facility] - Chemistry and C hemistry - challengeon 03-08-2023 Cholesterol [Mass/Vol] 151\S\151 [facility] 140-[facility]: Comment on above: Chol less than 200 m g/dl low risk Chol 201-239 mg/dl borderline risk Chol 240 mg/dl and greater high risk Cholesterol in LDL [Mass/Vol] 100\S\100 [facility] 0-[facility] Work Phone: Comment on above: LDL ATP III CLASSIFI CATION LDL less than 100 mg/dL Optimal LDL 100-129 mg/dL Near or above optimal LDL 130-159 mg/dL Borderline high LDL 160-189 mg/dL High LDL greater than 189 mg/dL Very high Laboratory - CoagulationOrde red By: Jonna Perry on 03-08-2023 PT Coag (PPP) [Time] 12.2 s 9.0-12.9 [facility] Leukocytes [#/volume] correc miguel for nucleated erythrocytes in Blood by Automated counOrdered By: Jonna Perry on 03-08-2023 WBC corrected for nucl RBC Auto (Bld) [#/Vol] 6.2 10*3/uL 3.8-11.6 [facility] Lymphocytes Auto (Bld) [#/Vo l]Ordered By: Jonna Perry on 03-08-2023 Lymphocytes (Bld) [#/Vol] N/A [facility] Lymphocytes/100 WBC Auto (Bl d)Ordered By: Jonna Perry on 03-08-2023 Lymphocytes/100 WBC (Bld) N/A [facility] Lymphocytes/100 WBC Manual c nt (Bld)Ordered By: Jonna Perry on 03-08-2023 Lymphocytes/100 WBC (Bld) 16 % 18-42 [facility] MCH Auto (RBC) [Entitic mass ]Ordered By: Jonna Perry on 03-08-2023 MCH (RBC) [Entitic mass] 29.0 pg 24.7-34.3 [facility] MCHC Auto (RBC) [Mass/Vol]Or dered By: Jonna Perry on 03-08-2023 MCHC (RBC) [Mass/Vol] 33.6 g/dL 32.0-35.0 [facility] MCV Auto (RBC) [Entitic vol] Ordered By: Jonna Perry on 03-08-2023 MCV (RBC) [Entitic vol] 86.2 fL 80-100 [facility] Metamyelocytes/100 WBC Manua l cnt (Bld)Ordered By: Jonna Perry on 03-08-2023 Metamyelocytes/100 WBC (Bld) 1 % 0-0 [facility] Monocytes Auto (Bld) [#/Vol] Ordered By: Jonna Perry on 03-08-2023 Monocytes (Bld) [#/Vol] N/A [facility] Monocytes/100 WBC Auto (Bld) Ordered By: Jonna Perry on 03-08-2023 Monocytes/100 WBC (Bld) N/A [facility] Monocytes/100 WBC Manual cnt (Bld)Ordered By: Jonna Perry on 03-08-2023 Monocytes/100 WBC (Bld) 3 % 2-11 [facility] Neutrophils Auto (Bld) [#/Vo l]Ordered By: Jonna Perry on 03-08-2023 Neutrophils (Bld) [#/Vol] N/A [facility] Neutrophils/100 WBC Auto (Bl d)Ordered By: Jonna Peryr on 03-08-2023 Neutrophils/100 WBC (Bld) N/A [facility] No Panel InformationOrdered By: Jonna Perry on 03-08-2023 Estimated GFR (CKD-EPI) 48.665 mL/Min [facility] Creatinine Clearance (Chem N/A [facility] No Panel Informationon 03-08 32.0\S\32.0 Normal 25.1-36.5 -[facility] y 250 DO Work Phone: Comment on above: PERFORMED BY:[facility] [place], [place] [id number] MEDICAL DIRECTORJAMAAL MO M.D. 1.1\S\1.1 Normal [facility] DO Work Phone: [phone] Comment on above: INR Therapeutic Rang [...] valves: 3 - 4.5 12.2\S\12.2 Normal 9.0-12.9 [facility] DO Work Phone: [phone] 9.0\S\9.0 Normal 6.3-10.7 [facility] DO Work Phone: [phone] 33.1\S\33.1 above high threshold 21.0-31.0 [facility] DO Work Phone: [phone] 104\S\104 Normal 98-107 [facility] y 250 DO Work Phone: [phone] 5.1\S\5.1 Normal 3.5-5.1 [facility] DO Work Phone: [phone] 141\S\141 Normal 136-145 [facility] DO Work Phone: [phone] 21\S\21 Normal 7-25 [facility] DO Work Phone: [phone] 48.665\S\48.665 Normal [facility] DO Work Phone: [phone] 1.14\S\1.14 Normal 0.60-1.20 [facility] 250 DO Work Phone: [phone] 4.0\S\4.0 Normal <5.0 [facility] 250 DO Work Phone: Comment on above: PERFORMED BY:[facility] [place], [place] [phone] MEDICAL DIRECTORJAMAAL MO M.D. 13\S\13 Normal [facility] 250 DO Work Phone: 67\S\67 Normal 0-149 [facility] [address] 250 DO Work Phone: Comment on above: TRIG ATP III CLASSIF ICATION TRIG less than 150 mg/dL Normal TRIG 150-199 mg/dL Borderline high TRIG 200-500 mg/dL High TRIG greater than 500 mg/dL Very high Standard traceable to the Center for Disease Conrtrol and Prevention (CDC) test method. 38\S\38 Normal 35-85 [facility] [address] 250 DO Work Phone: Comment on above: HDL CHOL ATP-III CLA SSIFICATION Cardiovascular Risk HDL > or equal to 60 mg/dL LOW HDL < 40 mg/dL HIGH 74\S\74 above high threshold 50-70 [facility] [address] 250 DO Work Phone: 276\S\276 Normal 150-450 [facility] 250 DO Work Phone: 14.1\S\14.1 Normal 11.9-15.3 [facility] [address] 250 DO Work Phone: [phone] 33.6\S\33.6 Normal 32.0-35.0 [facility] DO Work Phone: 29.0\S\29.0 Normal 24.7-34.3 [facility] DO Work Phone: 1\S\1 above high threshold 0-0 [facility] DO Work Phone: 0\S\0 Normal 0-2 [facility] DO Work Phone: [phone] 2\S\2 Normal 1-3 [facility] DO Work Phone: [phone] 3\S\3 Normal 2-11 [facility] DO Work Phone: [phone] 16\S\16 below low threshold 18-42 [facility] DO Work Phone: [phone] 4\S\4 Normal 0-5 [facility] DO Work Phone: [phone] Slight Normal [facility] DO Work Phone: [phone] Comment on above: PERFORMED BY:[place] [id number] [address] [place], [place] [phone] MEDICAL DIRECTORJAMAAL MO M.D. Normal Normal Normal [facility] 250 DO Work Phone: [phone] 86.2\S\86.2 Normal 80-100 [facility] DO Work Phone: [phone] 30.7\S\30.7 below low threshold 34.0-46.4 [facility] DO Work Phone: [phone] 10.3\S\10.3 below low threshold 11.8-15.4 [facility] DO Work Phone: [phone] 3.56\S\3.56 below low threshold 3.60-5.00 [facility] DO Work Phone: [phone] 8.6\S\8.6 Normal 3.8-11.6 [facility] DO Work Phone: [phone] 6.2\S\6.2 Normal 3.8-11.6 [facility] DO Work Phone: [phone] Nucleated erythrocytes [Pres ence] in Blood by Automated countOrdered By: Jonna Perry on 03-08-2023 Nucleated RBC Auto Ql (Bld) N/A [facility] Ovalocyte detectionOrdered B y: Jonna Perry on 03-08-2023 Ovalocytes LM Ql (Bld) Slight Fi [facility] Platelet adequacy [Presence] in Blood by Light microscopyOrdered By: Jonna Perry on 03-08-2023 Platelets LM Ql (Bld) Normal Normal Fir [facility] Platelet mean volume Auto (B ld) [Entitic vol]Ordered By: Jonna Perry on 03-08-2023 Platelet mean volume (Bld) [Entitic vol] 9.0 fL 6.3-10.7 [facility] Platelet morphology finding [Identifier] in BloodOrdered By: Jonna Perry on 03-08-2023 Platelet morphology finding Nom (Bld) N/A [facility] Platelet poor plasma interna tional normalized ratio (INR) by coagulation assay (relatOrdered By: Jonna Perry on 03-08-2023 INR Coag (PPP) [Relative time] 1.1 {INR} [facility] Comment on above: INR [facility] [...] 03-08-2023 Platelets (Bld) [#/Vol] 276 10*3/uL 150-450 [facility] Platelets Large [Presence] i n Blood by Light microscopyOrdered By: Jonna Perry on 03-08-2023 Platelets Large LM Ql (Bld) [facility] Poikilocytosis [Presence] in Blood by Light microscopyOrdered By: Jonna Perry on 03-08-2023 Poikilocytosis LM Ql (Bld) [facility] Potassium [Moles/volume] in Serum or PlasmaOrdered By: Jonna Perry on 03-08-2023 Potassium [Moles/Vol] 5.1 mmol/L 3.5-5.1 [facility] RBC Auto (Bld) [#/Vol]Ordere d By: Jonna Perry on 03-08-2023 RBC (Bld) [#/Vol] 3.56 10*6/uL 3.60-5.00 [facility] RBC morphologyOrdered By: Jonna Perry on 03-08-2023 RBC morphology finding Nom (Bld) N/A [facility] Segmented neutrophils/100 WB C Manual cnt (Bld)Ordered By: Jonna Perry on 03-08-2023 Segmented neutrophils/100 WBC (Bld) 74 % 50-70 [facility] Serum or plasma anion gap de terminationOrdered By: Jonna Perry on 03-08-2023 Anion gap [Moles/Vol] 9.0 mmol/L 6.0-15.0 [facility] Serum or plasma high density lipoprotein (HDL) cholesterol measurementOrdered By: Jonna Perry on 03-08-2023 Cholesterol in HDL [Mass/Vol] 38 mg/dL 35-85 [facility] Comment on above: HDL CHOL ATP-III CLA SSIFICATION Cardiovascular RiskHDL > or equal to 60 mg/dL LOWHDL < 40 mg/dL HIGH Serum or plasma total choles terol/high density lipoprotein (HDL) cholesterol mass ratOrdered By: Jonna Perry on 03-08-2023 Cholesterol.total/Chol esterol in HDL [Mass ratio] 4.0 {ratio} <5.0 [facility] Sodium [Moles/volume] in Ser um or PlasmaOrdered By: Jonna Perry on 03-08-2023 Sodium [Moles/Vol] 141 mmol/L 136-145 [facility] Triglyceride [Mass/volume] i n Serum or PlasmaOrdered By: Jonna Perry on 03-08-2023 Triglyceride [Mass/Vol] 67 mg/dL 0-149 [facility] Comment on above: TRIG ATP III CLASSIF ICATIONTRIG less than 150 mg/dL NormalTRIG 150-199 mg/dL Borderline highTRIG 200-500 mg/dL High TRIG greater than 500 mg/dL Very highStandard traceable to the Center for Disease Conrtrol and Prevention (CDC) test method. Urea nitrogen [Mass/volume] in Serum or PlasmaOrdered By: Jonna Perry on 03-08-2023 Urea nitrogen [Mass/Vol] 21 mg/dL 7-25 [facility] WBC Auto (Bld) [#/Vol]Ordere d By: Jonna Perry on 03-08-2023 WBC (Bld) [#/Vol] 8.6 10*3/uL 3.8-11.6 [facility] Office Visit (Cardiology)on 03-07-2023 Follow-up [...] associated with accelerated hypertension, was admitted to [place] briefly, diuresed approximately 14 pounds with diuretics. [...] complaint. Vitals Vital Signs Recorded: 07Mar2023 10:14AMRecorded: [id number] 10:04AM [id number], [id number], [id number] (more content not included)... Normal [facility] Tobacco Screening.on 023 Adult depression screening assessment No [facility] DO Work Phone: Fall risk assessment a) No falls within the last year [facility] 250 DO Work Phone: Tobacco use status [facility] b) No [facility] DO Work Phone: CBC AUTO DIFFon 03-01-2023 BASO # 0.0 103/ul Normal 0.0-0.1 [facility] Comment on above: Performed By: #### C BC #### [facility] [address] [address] [address] Jose David Shanks Basophils/100 WBC (Bld) 0.5 % Normal 0.2-2.0 [facility] Comment on above: Performed By: #### C BC #### [facility] [address] [address] [address] Jose David Shanks EO # 0.1 103/ul Normal 0.0-0.7 [facility] Comment on above: Performed By: #### C BC #### [facility] [address] [address] [address] Jose David Shanks Eosinophils/100 WBC (Bld) 1.2 % Normal 0.9-7.0 [facility] Comment on above: Performed By: #### C BC #### [facility] [address] [address] [address] Jose David Shanks Erythrocyte distribution width (RBC) [Ratio] 13.2 % Normal 11.0-15.0 [facility] Comment on above: Performed By: #### C BC #### [facility] [address] [place] [address] Dr. Jose David Shanks Hematocrit (Bld) [Volume fraction] 33.9 % Critically low 36.0-48.0 [facility] Comment on above: Performed By: #### C BC #### [facility] [address] [place] [address] Dr. Jose David Shanks Hemoglobin (Bld) [Mass/Vol] 11.0 g/dL Critically low 12.0-16.0 [facility] Comment on above: Performed By: #### C BC #### [facility] [address] [place] [address] Dr. Jose David Shanks IG # 0.03 10e3/ul Normal 0.00-0.03 [facility] Comment on above: Performed By: #### C BC #### [facility] [address] [place] [address] Dr. Jose David Shanks IG % 0.5 % Normal 0.0-0.5 [facility] Comment on above: Performed By: #### C BC #### [facility] [address] [place] [address] Dr. Jose David Shanks LYMPH # 0.8 103/ul Critically low 1.2-3.8 [facility] Comment on above: Performed By: #### C BC #### [facility] [address] [place] [address] Dr. Jose David Shanks Lymphocytes/100 WBC (Bld) 13.7 % Critically low 20.5-60.0 [facility] Comment on above: Performed By: #### C BC #### [facility] [address] [place] [address] Dr. Jose David Shanks MANUAL DIFF REQ NO Normal [facility] Comment on above: Performed By: #### C BC #### [facility] [address] [place] [address] Dr. Jose David Shanks MCH (RBC) [Entitic mass] 28.9 pg Normal 26.7-34.[address] [facility] Comment on above: Performed By: #### C BC #### [facility] [address] [place] [address] Dr. Jose David Shanks MCHC (RBC) [Mass/Vol] 32.4 g/dL Normal 29.9-35.[address] [facility] Comment on above: Performed By: #### C BC #### [facility] [address] [place] [address] Dr. Jose David Shanks MCV (RBC) [Entitic vol] 89.0 fL Normal 81.0-99.0 [facility] Comment on above: Performed By: #### C BC #### [facility] [address] [place] [address] Dr. Jose David Shanks MONO # 0.5 103/ul Normal 0.3-0.[address] [facility] Comment on above: Performed By: #### C BC #### [facility] [address] [place] [address] Dr. Jose David Shanks Monocytes/100 WBC (Bld) 8.2 % Normal 1.7-12.0 [facility] Comment on above: Performed By: #### C BC #### [facility] [address] [place] [address] Dr. Jose David Shanks NEUT # 4.3 103/ul Normal 1.4-6.[address] [facility] Comment on above: Performed By: #### C BC #### [facility] [address] [place] [address] Dr. Jose David Shanks Neutrophils/100 WBC (Bld) 75.9 % Critically high 43.0-75.[address] [facility] Comment on above: Performed By: #### C BC #### [facility] [address] [place] [address] Dr. Jose David Shanks Platelet mean volume (Bld) [Entitic vol] 10.1 fL Normal 9.5-13.[address] [facility] Comment on above: Performed By: #### C BC #### [facility] [address] [place] [address] Dr. Jose David Shanks PLT 279 103/ul Normal 150-[address] [facility] Comment on above: Performed By: #### C BC #### [facility] [address] [place] [address] Dr. Jose David Shanks RBC 3.81 106/ul Critically low 4.20-5.40 [facility] Comment on above: Performed By: #### C BC #### [facility] [address] [place] [address] Dr. Jose David Shanks WBC 5.7 103/ul Normal 4.0-11.0 [facility] Comment on above: Performed By: #### C BC #### [facility] [address] [place] [address] Dr. Jose David Shanks FERRITINon 03-01-2023 Ferritin [Mass/Vol] 180.0 ng/mL Normal 8.0-252.0 [facility] Comment on above: Performed By: #### C BC #### [facility] [address] [place] [address] Dr. Jose David Shanks IRON AND TIBCon 03-01-2023 % SATURATION 23.6 % Normal [facility] Comment on above: Performed By: #### C BC #### [facility] [address] [place] [address] Dr. Jose David Shanks Iron [Mass/Vol] 61.0 ug/dL Normal 50.0-170.0 [facility] Comment on above: Performed By: #### C BC #### [facility] [address] [place] [address] Dr. Jose David Shanks TIBC DIRECT 258.0 ug/dL Normal 250.0-450.0 [facility] Comment on above: Performed By: #### C BC #### [facility] [address] [place] [address] Dr. Jose David Shanks NM STRESS/REST MULTIon 03-01 NM STRESS/REST MULTI Patient: GERMANIA JOAQUINManuel Exam Date: 03/01/2023 : 1940 Gender:F Ordering : DR NATHAN HATHAWAY D.O. Admission #: [id number] Family : Order #: [id number] CLICK HERE TO VIEW EXAM RADIOLOGY REPORT [...] STUDY: PERFUSION DEFECT: LOCATION: Mid-anterior. Apical anterior. [place]. SIZE: Medium (3-4 segments). SEVERITY: Moderate. TYPE: [...] 03/01/2023 at 14:54 Normal [facility] PROF CHEM 8 (BAS METB)on Anion gap [Moles/Vol] 8.8 mmol/L Normal [facility] Comment on above: Performed By: #### L ACT #### [facility] [address] [place] [address] Dr. Jose David Shanks Calcium [Mass/Vol] 9.0 mg/dL Normal 8.5-10.1 [facility] Comment on above: Performed By: #### L ACT #### [facility] [address] [address] [address] Jose David Shanks Chloride [Moles/Vol] 106 mmol/L Normal 98-107 [facility] Comment on above: Performed By: #### L ACT #### [facility] [address] [address] [address] Jose David Shanks CO2 [Moles/Vol] 31.0 mmol/L Normal 21.0-32.0 [facility] Comment on above: Performed By: #### L ACT #### [facility] [address] [address] [address] Jose David Shanks Creatinine [Mass/Vol] 1.18 mg/dL Critically high 0.55-1.02 [facility] Comment on above: Performed By: #### L ACT #### [facility] [address] [address] [address] Jose David Shanks EGFR-AF SENEGALESE 53 mL/min/1.73m2 Critically low >=60 [facility] Comment on above: Performed By: #### L ACT #### [facility] [address] [address] [address] Jose David Shanks EGFR-NON AF SENEGALESE 44 mL/min/1.73m2 Critically low >=60 [facility] Comment on above: Performed By: #### L ACT #### [facility] [address] [place] [address] Dr. Jose David Shanks Glucose [Mass/Vol] 98 mg/dL Normal 74-106 [facility] Comment on above: Performed By: #### L ACT #### [facility] [address] [address] [address] Jose David Shanks Potassium [Moles/Vol] 4.8 mmol/L Normal 3.5-5.1 [facility] Comment on above: Performed By: #### L ACT #### [facility] [address] [address] [address] Jose David Shanks Sodium [Moles/Vol] 141 mmol/L Normal 136-145 [facility] Comment on above: Performed By: #### L ACT #### [facility] [address] [address] [address] Jose David Shanks Urea nitrogen [Mass/Vol] 16.0 mg/dL Normal 7.0-18.0 [facility] Comment on above: Performed By: #### L ACT #### [facility] [address] [place] [address] Dr. Jose David Shanks Urea nitrogen/Creatinine [Mass ratio] 13.6 mg/mg Normal [facility] Comment on above: Performed By: #### L ACT #### [facility] [address] [place] [address] Dr. Jose David Shanks RETICULOCYTEon 03-01-2023 RETIC 1.51 % Normal 0.60-3.[address] [facility] Comment on above: Performed By: #### C BC #### [facility] [address] [place] [address] Dr. Jose David Shanks VIT B12 AND FOLATEon 023 Cobalamin (Vitamin B12) [Mass/Vol] 1406.0 pg/mL Critically high 193.0-986.0 [facility] Comment on above: Performed By: #### C BC #### [facility] [address] [place] [address] Dr. Jose David Shanks FOLATE 19.00 ng/mL Normal 8.60-58.90 [facility] Comment on above: Performed By: #### C BC #### [facility] [address] [place] [address] Dr. Jose David Shanks CBC AUTO DIFFon 02-09-2023 BASO # 0.0 103/ul Normal 0.0-0.1 [facility] Comment on above: Performed By: #### C BC #### [facility] [address] [place] [address] Dr. Jose David Shanks Basophils/100 WBC (Bld) 0.6 % Normal 0.2-2.[address] [facility] Comment on above: Performed By: #### C BC #### [facility] [address] [place] [address] Dr. Jose David Shanks EO # 0.1 103/ul Normal 0.0-0.7 [facility] Comment on above: Performed By: #### C BC #### [facility] [address] [place] [address] Dr. Jose David Shanks Eosinophils/100 WBC (Bld) 2.7 % Normal 0.9-7.0 [facility] Comment on above: Performed By: #### C BC #### [facility] [address] [place] [address] Dr. Jose David Shanks Erythrocyte distribution width (RBC) [Ratio] 13.5 % Normal 11.0-15.0 [facility] Comment on above: Performed By: #### C BC #### [facility] [address] [place] [address] Dr. Jose David Shanks Hematocrit (Bld) [Volume fraction] 30.0 % Critically low 36.0-48.0 [facility] Comment on above: Performed By: #### C BC #### [facility] [address] [place] [address] Dr. Jose David Shanks Hemoglobin (Bld) [Mass/Vol] 10.0 g/dL Critically low 12.0-16.0 [facility] Comment on above: Performed By: #### C BC #### [facility] [address] [place] [address] Dr. Jose David Shanks IG # 0.02 10e3/ul Normal 0.00-0.03 [facility] Comment on above: Performed By: #### C BC #### [facility] [address] [place] [address] Dr. Jose David Shanks IG % 0.4 % Normal 0.0-0.5 [facility] Comment on above: Performed By: #### C BC #### [facility] [address] [place] [address] Dr. Jose David Shanks LYMPH # 0.9 103/ul Critically low 1.2-3.8 [facility] Comment on above: Performed By: #### C BC #### [facility] [address] [place] [address] Dr. Jose David Shanks Lymphocytes/100 WBC (Bld) 19.3 % Critically low 20.5-60.0 [facility] Comment on above: Performed By: #### C BC #### [facility] [address] [place] [address] Dr. Jose David Shanks MANUAL DIFF REQ NO Normal [facility] Comment on above: Performed By: #### C BC #### [facility] [address] [place] [address] Dr. Jose David Shanks MCH (RBC) [Entitic mass] 29.3 pg Normal 26.7-34.0 [facility] Comment on above: Performed By: #### C BC #### [facility] [address] [place] [address] Dr. Jose David Shanks MCHC (RBC) [Mass/Vol] 33.3 g/dL Normal 29.9-35.2 [facility] Comment on above: Performed By: #### C BC #### [facility] [address] [place] [address] Dr. Jose David Shanks MCV (RBC) [Entitic vol] 88.0 fL Normal 81.0-99.0 [facility] Comment on above: Performed By: #### C BC #### [facility] [address] [place] [address] Dr. Jose David Shanks MONO # 0.4 103/ul Normal 0.3-0.8 [facility] Comment on above: Performed By: #### C BC #### [facility] [address] [place] [address] Dr. Jose David Shanks Monocytes/100 WBC (Bld) 8.3 % Normal 1.7-12.0 [facility] Comment on above: Performed By: #### C BC #### [facility] [address] [place] [address] Dr. Jose David Shanks NEUT # 3.3 103/ul Normal 1.4-6.[address] [facility] Comment on above: Performed By: #### C BC #### [facility] [address] [place] [address] Dr. Jose David Shanks Neutrophils/100 WBC (Bld) 68.7 % Normal 43.0-75.0 [facility] Comment on above: Performed By: #### C BC #### [facility] [address] [place] [address] Dr. Jose David Shanks Platelet mean volume (Bld) [Entitic vol] 9.9 fL Normal 9.5-13.5 [facility] Comment on above: Performed By: #### C BC #### [facility] [address] [place] [address] Dr. Jose David Shanks PLT 259 103/ul Normal 150-450 [facility] Comment on above: Performed By: #### C BC #### [facility] [address] [address] [address] Jose David Shanks RBC 3.41 106/ul Critically low 4.20-5.40 [facility] Comment on above: Performed By: #### C BC #### [facility] [address] [address] [address] Jose David Shanks WBC 4.8 103/ul Normal 4.0-11.0 [facility] Comment on above: Performed By: #### C BC #### [facility] [address] [place] [address] Dr. Jose David Shanks PROF CHEM 8 (BAS METB)on Anion gap [Moles/Vol] 11.7 mmol/L Normal [facility] Comment on above: Performed By: #### L ACT #### [facility] [address] [place] [address] Dr. Jose David Shanks Calcium [Mass/Vol] 8.6 mg/dL Normal 8.5-10.1 [facility] Comment on above: Performed By: #### L ACT #### [facility] [address] [place] [address] Dr. Jose David Shanks Chloride [Moles/Vol] 107 mmol/L Normal 98-107 [facility] Comment on above: Performed By: #### L ACT #### [facility] [address] [address] [address] Jose David Shanks CO2 [Moles/Vol] 30.9 mmol/L Normal 21.0-32.0 [facility] Comment on above: Performed By: #### L ACT #### [facility] [address] [place] [address] Dr. Jose David Shanks Creatinine [Mass/Vol] 1.04 mg/dL Critically high 0.55-1.02 [facility] Comment on above: Performed By: #### L ACT #### [facility] [address] [address] [address] Jose David Shanks EGFR-AF SENEGALESE >60 Normal >=60 [facility] Comment on above: Performed By: #### L ACT #### [facility] [address] [address] [address] Jose David Shanks EGFR-NON AF SENEGALESE 51 mL/min/1.73m2 Critically low >=60 [facility] Comment on above: Performed By: #### L ACT #### [facility] [address] [address] [address] Jose David Shanks Glucose [Mass/Vol] 97 mg/dL Normal 74-106 [facility] Comment on above: Performed By: #### L ACT #### [facility] [address] [address] [address] Jose David Shanks Potassium [Moles/Vol] 3.6 mmol/L Normal 3.5-5.1 [facility] Comment on above: Performed By: #### L ACT #### [facility] [address] [address] [address] Jose David Shanks Sodium [Moles/Vol] 146 mmol/L Critically high 136-145 [facility] Comment on above: Performed By: #### L ACT #### [facility] [address] [address] [address] Jose David Shanks Urea nitrogen [Mass/Vol] 17.0 mg/dL Normal 7.0-18.0 [facility] Comment on above: Performed By: #### L ACT #### [facility] [address] [address] [address] Jose David Shanks Urea nitrogen/Creatinine [Mass ratio] 16.3 mg/mg Normal [facility] Comment on above: Performed By: #### L ACT #### [facility] [address] [address] [address] Jose David Shanks XR CHEST 2 [...] Date: 2023-02-09 15:56 Normal [facility] BNPon 02-08-2023 Natriuretic peptide B (Bld) [Mass/Vol] 1007.0 pg/mL Normal <=1,800.0 [facility] Comment on above: Performed By: #### B TROUBLE DISPATCHER #### [facility] [address] [place] [address] Dr. Jose David Shanks CARDIAC TALI 3-6on 3 CK [Catalytic activity/Vol] 29 U/L Normal 26-192 [facility] Comment on above: Performed By: #### C MREP #### [facility] [address] [place] [address] Dr. Jose David Shanks CK.MB [Mass/Vol] 0.90 ng/mL Normal <=3.60 [facility] Comment on above: Performed By: #### C MREP #### [facility] [address] [place] [address] Dr. Jose David Shanks HSTROP 69.4 pg/mL Critically high 4.0-51.3 [facility] Comment on above: Result Comment: CUT- OFF POINTS HAVE BEEN ESTABLISHED BASED ON THE FOURTH UNIVERSAL DEFINITIONS OF MYOCARDIAL INFARCTION. THE UPPER REFERENCE LIMIT (URL) OF TROPONIN, DEFINED THE 99TH PERCENTILE OF cTnI DISTRIBUTION IN A REFERENCE POPULATION, HAS BEEN CONFIRMED THE DECISION THRESHOLD FOR [place] DIAGNOSIS. Performed By: #### C MREP #### [facility] [address] [place] [address] Dr. Jose David Shanks CK [Catalytic activity/Vol] 23 U/L Critically low 26-192 [facility] Comment on above: Performed By: #### C MREP #### [facility] [address] [place] [address] Dr. Jose David Shanks CK.MB [Mass/Vol] ng/mL Normal <=3.60 [facility] Comment on above: Performed By: #### C MREP #### [facility] [address] [address] [address] Jose David Shanks HSTROP 72.0 pg/mL Critically high 4.0-51.3 [facility] Comment on above: Result Comment: CUT- OFF POINTS HAVE BEEN ESTABLISHED BASED ON THE FOURTH UNIVERSAL DEFINITIONS OF MYOCARDIAL INFARCTION. THE UPPER REFERENCE LIMIT (URL) OF TROPONIN, DEFINED THE 99TH PERCENTILE OF cTnI DISTRIBUTION IN A REFERENCE POPULATION, HAS BEEN CONFIRMED THE DECISION THRESHOLD FOR [place] DIAGNOSIS. Performed By: #### C MREP #### [facility] [address] [place] [address] Dr. Jose David Shanks CARDIAC TALI ADMITon 023 CK [Catalytic activity/Vol] 31 U/L Normal 26-192 [facility] Comment on above: Performed By: #### C MADM, BMP #### [facility] [facility] [address] [place] [address] Dr. Jose David Shanks CK.MB [Mass/Vol] ng/mL Normal <=3.60 [facility] Comment on above: Performed By: #### C MADM, BMP #### [facility] [address] [place] [address] Dr. Jose David Shanks HSTROP 26.3 pg/mL Normal 4.0-51.[address] [facility] Comment on above: Result Comment: CUT- OFF POINTS HAVE BEEN ESTABLISHED BASED ON THE FOURTH UNIVERSAL DEFINITIONS OF MYOCARDIAL INFARCTION. THE UPPER REFERENCE LIMIT (URL) OF TROPONIN, DEFINED THE 99TH PERCENTILE OF cTnI DISTRIBUTION IN A REFERENCE POPULATION, HAS BEEN CONFIRMED THE DECISION THRESHOLD FOR AK DIAGNOSIS. Performed By: #### C MADM, BMP #### [facility] [address] [place] [address] Dr. Jos eDavid Shanks MAMI 52 ng/mL Normal 9-[address] [facility] Comment on above: Performed By: #### C MADM, BMP #### [facility] [address] [place] [address] Dr. Jose David Shanks CBC AUTO DIFFon 02-08-2023 BASO # 0.0 103/ul Normal 0.0-0.1 [facility] Comment on above: Performed By: #### L ACT #### [facility] [address] [place] [address] Dr. Jose David Shanks Basophils/100 WBC (Bld) 0.3 % Normal 0.2-2.0 [facility] Comment on above: Performed By: #### L ACT #### [facility] [address] [place] [address] Dr. Jose David Shanks EO # 0.1 103/ul Normal 0.0-0.7 [facility] Comment on above: Performed By: #### L ACT #### [facility] [address] [place] [address] Dr. Jose David Shanks Eosinophils/100 WBC (Bld) 0.5 % Critically low 0.9-7.0 [facility] Comment on above: Performed By: #### L ACT #### [facility] [address] [place] [address] Dr. Jose David Shanks Erythrocyte distribution width (RBC) [Ratio] 13.4 % Normal 11.0-15.0 [facility] Comment on above: Performed By: #### L ACT #### [facility] [address] [place] [address] Dr. Jose David Shanks Hematocrit (Bld) [Volume fraction] 33.0 % Critically low 36.0-48.0 [facility] Comment on above: Performed By: #### L ACT #### [facility] [address] [place] [address] Dr. Jose David Shanks Hemoglobin (Bld) [Mass/Vol] 11.1 g/dL Critically low 12.0-16.0 [facility] Comment on above: Performed By: #### L ACT #### [facility] [address] [place] [address] Dr. Jose David Shanks IG # 0.06 10e3/ul Critically high 0.00-0.03 [facility] Comment on above: Performed By: #### L ACT #### [facility] [address] [place] [address] Dr. Jose David Shanks IG % 0.5 % Normal 0.0-0.5 [facility] Comment on above: Performed By: #### L ACT #### [facility] [address] [address] [address] Jose David Shanks LYMPH # 0.8 103/ul Critically low 1.2-3.8 [facility] Comment on above: Performed By: #### L ACT #### [facility] [address] [place] [address] Dr. Jose David Shanks Lymphocytes/100 WBC (Bld) 7.0 % Critically low 20.5-60.0 [facility] Comment on above: Performed By: #### L ACT #### [facility] [address] [place] [address] Dr. Jose David Shanks MANUAL DIFF REQ NO Normal [facility] Comment on above: Performed By: #### L ACT #### [facility] [address] [place] [address] Dr. Jose David Shanks MCH (RBC) [Entitic mass] 29.6 pg Normal 26.7-34.0 [facility] Comment on above: Performed By: #### L ACT #### [facility] [address] [place] [address] Dr. Jose David Shanks MCHC (RBC) [Mass/Vol] 33.6 g/dL Normal 29.9-35.2 [facility] Comment on above: Performed By: #### L ACT #### [facility] [address] [place] [address] Dr. Jose David Shanks MCV (RBC) [Entitic vol] 88.0 fL Normal 81.0-99.0 [facility] Comment on above: Performed By: #### L ACT #### [facility] [address] [place] [address] Dr. Jose David Shanks MONO # 0.6 103/ul Normal 0.3-0.8 [facility] Comment on above: Performed By: #### L ACT #### [facility] [address] [address] [address] Jose David Shanks Monocytes/100 WBC (Bld) 5.4 % Normal 1.7-12.0 [facility] Comment on above: Performed By: #### L ACT #### [facility] [address] [address] [address] Jose David Shanks NEUT # 9.9 103/ul Critically high 1.4-6.5 [facility] Comment on above: Performed By: #### L ACT #### [facility] [address] [place] [address] Dr. Jose David Shanks Neutrophils/100 WBC (Bld) 86.3 % Critically high 43.0-75.0 [facility] Comment on above: Performed By: #### L ACT #### [facility] [address] [place] [address] Dr. Jose David Shanks Platelet mean volume (Bld) [Entitic vol] 10.1 fL Normal 9.5-13.5 [facility] Comment on above: Performed By: #### L ACT #### [facility] [address] [place] [address] Dr. Jose David Shanks PLT 333 103/ul Normal 150-[address] [facility] Comment on above: Performed By: #### L ACT #### [facility] [address] [place] [address] Dr. Jose David Shanks RBC 3.75 106/ul Critically low 4.20-5.40 [facility] Comment on above: Performed By: #### L ACT #### [facility] [address] [place] [address] Dr. Jose David Shanks WBC 11.5 103/ul Critically high 4.0-11.0 [facility] Comment on above: Performed By: #### L ACT #### [facility] [address] [place] [address] Dr. Jose David Shanks CULTURE BLOODon 02-08-2023 Microscopic examination of blood, culture Culture Observations: NO GROWTH AT 5 DAYS. Normal [facility] Comment on above: Performed By: #### L ACT #### [facility] [address] [place], [place] [address] Dr. Jose David Shanks Microscopic examination of blood, culture Culture Observations: NO GROWTH AT 5 DAYS. Normal [facility] Comment on above: Performed By: #### L ACT #### [facility] [address] [place], [place] [address] Dr. Jose David Shanks ECHOCARDIO M/2D COMPLETEon 0 02-08-2023 ECHOCARDIO M/2D COMPLETE Patient: LASHAUN JOAQUIN Exam Date: 02/08/2023 : 1940 Gender:F Ordering : DR KOFI SCOTT . Admission #: [id number] Family : DR NATHAN HATHAWAY D.O. Order #: [id number] CLICK HERE TO VIEW EXAM ECHOCARDIOGRAM REPORT [...] Payne M.D. on 02/09/2023 at 19:11 Normal [facility] LACTATE/LACTIC ACIDon 2022 Lactate [Moles/Vol] 1.4 mmol/L Normal 0.4-2.0 [facility] Comment on above: Performed By: #### L ACT #### [facility] [address] [address] [address] Jose David Shanks Lactate [Moles/Vol] 1.4 mmol/L Normal 0.4-2.0 [facility] Comment on above: Performed By: #### L ACT #### [facility] [address] [place] [address] Dr. Jose David Shanks PROF CHEM 8 (BAS METB)on Anion gap [Moles/Vol] 11.9 mmol/L Normal [facility] Comment on above: Performed By: #### C ELZA, BMP #### [facility] [address] [place] [address] Dr. Jose David Shanks Calcium [Mass/Vol] 9.0 mg/dL Normal 8.5-10.1 [facility] [place] [facility] Comment on above: Performed By: #### C ELZA, BMP #### [facility] [address] [place] [address] Dr. Jose David Shanks Chloride [Moles/Vol] 105 mmol/L Normal 98-107 [facility] Comment on above: Performed By: #### C ELZA, BMP #### [facility] [address] [place] [address] Dr. Jose David Shanks CO2 [Moles/Vol] 28.2 mmol/L Normal 21.0-32.0 [facility] Comment on above: Performed By: #### C ELZA, BMP #### [facility] [address] [place] [address] Dr. Jose David Shanks Creatinine [Mass/Vol] 0.99 mg/dL Normal 0.55-1.02 [facility] Comment on above: Performed By: #### C MADM, BMP #### [facility] [address] [address] [address] Jose David Shanks EGFR-AF SENEGALESE >60 Normal >=60 [facility] Comment on above: Performed By: #### C MADM, BMP #### [facility] [address] [address] [address] Jose David Shanks EGFR-NON AF SENEGALESE 54 mL/min/1.73m2 Critically low >=60 [facility] Comment on above: Performed By: #### C MADM, BMP #### [facility] [address] [address] [address] Jose David Shanks Glucose [Mass/Vol] 123 mg/dL Critically high 74-106 [facility] Comment on above: Performed By: #### C MADM, BMP #### [facility] [address] [address] [address] Jose David Shanks Potassium [Moles/Vol] 4.1 mmol/L Normal 3.5-5.1 [facility] Comment on above: Performed By: #### C MADM, BMP #### [facility] [address] [address] [address] Jose David Shanks Sodium [Moles/Vol] 141 mmol/L Normal 136-145 [facility] [place] [facility] Comment on above: Performed By: #### C MADM, BMP #### [facility] [address] [address] [address] Jose David Shanks Urea nitrogen [Mass/Vol] 14.0 mg/dL Normal 7.0-18.0 [facility] Comment on above: Performed By: #### C MADM, BMP #### [facility] [address] [address] [address] Jose David Shanks Urea nitrogen/Creatinine [Mass ratio] 14.1 mg/mg Normal [facility] Comment on above: Performed By: #### C MADM, BMP #### [facility] [address] [address] [address] Jose David Shanks RESPIRATORY PANEL PLUSon Adenovirus Not detected Normal NOT DETECTED [facility] Comment on above: Performed By: #### R SPLUS #### [facility] [address] [place] [address] Dr. Jose David Mccormack Parapertusis Not detected Normal NOT DETECTED [facility] Comment on above: Performed By: #### R SPLUS #### [facility] [address] [place] [address] Dr. Jose David Mccormack Pertussis Not detected Normal NOT DETECTED [facility] Comment on above: Performed By: #### R SPLUS #### [facility] [address] [place] [address] Dr. Jose David Shanks Chlamydia Pneumoniae Not detected Normal NOT DETECTED [facility] Comment on above: Performed By: #### R SPLUS #### [facility] [address] [place] [address] Dr. Jose David Shanks Coronavirus 229E Not detected Normal NOT DETECTED [facility] Comment on above: Performed By: #### R SPLUS #### [facility] [address] [place] [address] Dr. Jose David Shanks Coronavirus HKU1 Not detected Normal NOT DETECTED [facility] Comment on above: Performed By: #### R SPLUS #### [facility] [address] [place] [address] Dr. Jose David Shanks Coronavirus NL63 Not detected Normal NOT DETECTED [facility] Comment on above: Performed By: #### R SPLUS #### [facility] [address] [place] [address] Dr. Jose David Shanks Coronavirus OC43 Not detected Normal NOT DETECTED [facility] Comment on above: Performed By: #### R SPLUS #### [facility] [address] [place] [address] Dr. Jose David Shanks Influenza A H1 Not detected Normal NOT DETECTED [facility] Comment on above: Performed By: #### R SPLUS #### [facility] [address] [place] [address] Dr. Jose David Shanks Influenza A H1 2009 Not detected Normal NOT DETECTED [facility] Comment on above: Performed By: #### R SPLUS #### [facility] [address] [place] [address] Dr. Jose David Shanks Influenza A H3 Not detected Normal NOT DETECTED [facility] Comment on above: Performed By: #### R SPLUS #### [facility] [address] [place] [address] Dr. Jose David Shanks Influenza B Not detected Normal NOT DETECTED [facility] Comment on above: Performed By: #### R SPLUS #### [facility] [address] [place] [address] Dr. Jose David Shanks Metapneumovirus Not detected Normal NOT DETECTED [facility] Comment on above: Performed By: #### R SPLUS #### [facility] [address] [place] [address] Dr. Jose David Shanks Mycoplas. Pneumoniae Not detected Normal NOT DETECTED [facility] Comment on above: Performed By: #### R SPLUS #### [facility] [address] [place] [address] Dr. Jose David Shanks Parainfluenza 1 Not detected Normal NOT DETECTED [facility] Comment on above: Performed By: #### R SPLUS #### [facility] [address] [place] [address] Dr. Jose David Shanks Parainfluenza 2 Not detected Normal NOT DETECTED [facility] Comment on above: Performed By: #### R SPLUS #### [facility] [address] [place] [address] Dr. Jose David Shanks Parainfluenza 3 Not detected Normal NOT DETECTED [facility] Comment on above: Performed By: #### R SPLUS #### [facility] [address] [place] [address] Dr. Jose David Shanks Parainfluenza 4 Not detected Normal NOT DETECTED [facility] Comment on above: Performed By: #### R SPLUS #### [facility] [address] [place] [address] Dr. Jose David Shanks Rhino/Enterovirus Not detected Normal NOT DETECTED [facility] Comment on above: Performed By: #### R SPLUS #### [facility] [address] [place] [address] Dr. Jose David Shanks RP2 Header 1 RESPIRATORY PANEL: VIRUSES Normal [facility] Comment on above: Performed By: #### R SPLUS #### [facility] [address] [address] [address] Jose David Shanks RP2 Header 2 RESPIRATORY PANEL: BACTERIA Normal [facility] Comment on above: Performed By: #### R SPLUS #### [facility] [address] [address] [address] Jose David Shanks RSV Not detected Normal NOT DETECTED [facility] Comment on above: Performed By: #### R SPLUS #### [facility] [address] [address] [address] Jose David Shanks SARS-CoV-2 (COVID-19) RNA ZABRINA+probe Ql (Unsp spec) Not detected Normal NOT DETECTED [facility] Comment on above: Performed By: #### R SPLUS #### [facility] [address] [place] [address] Dr. Jose David Shanks XR CHEST 1 [...] Petra SAHU Date: 2023-02-08 05:21 Normal [facility] MAMM SCREEN 3D SCARLETT CADon 01-08-2023 MG MAMM SCREEN 3D SCARLETT CAD Patient: LASHAUN JOAQUIN Exam Date: 01/08/2023 : 1940 Gender:F Ordering : DR NATHAN HATHAWAY D.O. Admission #: [id number] Family : Order #: [id number] CLICK HERE TO VIEW EXAM RADIOLOGY REPORT [...] at age 62. LOCATION: [facility] BREAST COMPOSITION: Extremely dense, which lowers [...] MD on 01/08/2023 at 11:24 Normal [facility] US ST HEAD_NECKon 09-11-[address] [...] WILLIAM DOMINGUEZ Date: 2022-09-11 17:07 Normal [facility] CT Abdomen and Pelvis W cont [...] any questions regarding this interpretation, please call [phone]. If you are unable to reach us at the number above, please feel free to contact [facility] at [phone]. DIVISION OF RADIOLOGY * * *Final Report* * * DATE OF EXAM: Aug 28 2022 1:36PM [facility] 0530 - CT ABD/PEL W [...] chest CT performed will be reported separately. Primary Health Care Nurse (topogram) images: No additional findings. DIVISION OF RADIOLOGY Provider, [facility] - 08/28/2022 * * *Final Report* * * DATE OF EXAM: Aug 28 2022 1:36PM [facility] 0530 - CT ABD/PEL W [...] chest CT performed will be reported separately. Primary Health Care Nurse (topogram) images: No additional findings. IMPRESSION IMPRESSION: [...] any questions regarding this interpretation, please call [phone]. If you are unable to reach us at the number above, please feel free to contact [facility] at [phone]. [facility] CT Abdomen and Pelvis W cont rast IVOrdered By: [facility] Provider on 08-28-2022 [facility] CT Chest W contrast Rivka IMPRESSION: [...] any questions regarding this interpretation, please call [phone]. If you are unable to reach us at the number above, please feel free to contact [facility] at [phone]. DIVISION OF RADIOLOGY * * *Final Report* * * DATE OF EXAM: Aug 28 2022 1:36PM [facility] 0539 - CT CHEST W [...] was performed concurrently and is reported separately. Primary Health Care Nurse (topogram) images: No additional findings. DIVISION OF RADIOLOGY Provider, Thee Stephens [facility] - 08/28/2022 * * *Final Report* * * DATE OF EXAM: Aug 28 2022 1:36PM [facility] 0539 - CT CHEST W [...] was performed concurrently and is reported separately. Primary Health Care Nurse (topogram) images: No additional findings. IMPRESSION IMPRESSION: [...] any questions regarding this interpretation, please call [phone]. If you are unable to reach us at the number above, please feel free to contact [facility] at [phone]. [facility] No Panel Informationon 08-28 Radiology Study observation (narrative) [facility] Covid-19 PCR (CVDTBH)on SARS-CoV-2 (COVID-19) RNA ZABRINA+probe Ql (Unsp spec) Detected Critically abnormal NOT DETECTED [facility] Comment on above: Result Comment: This test is not yet approved or cleared by the [place] FDA. When there are no FDA-approved or cleared tests available, and other criteria are met, FDA can make tests available under an emergency access mechanism called an Emergency Use Authorization (EUA). The EUA for this test is supported by the Hse Advisor of Health and Human Service's (HHS's) declaration [...] longer be used). Performed By: #### [facility] #### [facility] [address] [address] [address] Jose David Shanks Vital Signs Date Time Vital Sign Value Performing Clinician Facility 08-04-2025 10:44-0400 Body height 160.02 cm Nathan Hathaway DO Work Phone: [facility] 08-04-2025 10:44-0400 Body mass index (BMI) [Ratio] 34.5 kg/m2 Nathan Ball DO Work Phone: [facility] 08-04-2025 10:44-0400 Body temperature 97.6 [degF] Nathan Ball DO Work Phone: [facility] 08-04-2025 10:44-0400 Body weight 88.45 kg Nathan Ball DO Work Phone: [facility] 08-04-2025 10:44-0400 Diastolic blood pressure 50 mm[Hg] Nathan Ball DO Work Phone: [facility] 08-04-2025 10:44-0400 Heart rate 69 /min Nathan Ball DO Work Phone: [facility] 08-04-2025 10:44-0400 SaO2% (BldA) [Mass fraction] 96 % Nathan Ball DO Work Phone: [facility] 08-04-2025 10:44-0400 Systolic blood pressure 150 mm[Hg] Nathan Ball DO Work Phone: [facility] 07-21-2025 15:53-0400 Body height 166.37 cm Nathan Ball DO Work Phone: [facility] 07-21-2025 15:53-0400 Body mass index (BMI) [Ratio] 31.9 kg/m2 Nathan Ball DO Work Phone: [facility] 07-21-2025 15:53-0400 Body weight 88.45 kg Nathan Ball DO Work Phone: [facility] 07-21-2025 15:53-0400 Diastolic blood pressure 76 mm[Hg] Nathan Ball DO Work Phone: [facility] 07-21-2025 15:53-0400 Diastolic blood pressure 85 mm[Hg] Nathan Ball DO Work Phone: [facility] 07-21-2025 15:53-0400 Heart rate 76 /min Nathan Ball DO Work Phone: [facility] 07-21-2025 15:53-0400 Respiratory rate 12 /min Nathan Ball DO Work Phone: [facility] 07-21-2025 15:53-0400 Systolic blood pressure 172 mm[Hg] Nathan Ball DO Work Phone: [facility] 07-21-2025 15:53-0400 Systolic blood pressure 140 mm[Hg] Nathan Ball DO Work Phone: [facility] 07-08-2025 10:09-0400 Diastolic blood pressure 68 mm[Hg] aPolo Casillas APRN.PERFECT BIND MACHINE OPERATOR Work Phone: [facility] Comment on above: recheck BP [facility] 07-08-2025 10:09-0400 Systolic blood pressure 178 mm[Hg] Paolo Casillas APRN.PERFECT BIND MACHINE OPERATOR Work Phone: [facility] Comment on above: recheck BP [facility] 07-08-2025 10:01-0400 Body height 166.4 cm Paolo Casillas APRN.PERFECT BIND MACHINE OPERATOR Work Phone: [facility] 07-08-2025 10:01-0400 Body mass index (BMI) [Ratio] 33.15 kg/m2 Paolo Casillas APRN.PERFECT BIND MACHINE OPERATOR Work Phone: [facility] 07-08-2025 10:01-0400 Body temperature 96.8 [degF] Paolo Casillas APRN.PERFECT BIND MACHINE OPERATOR Work Phone: [facility] 07-08-2025 10:01-0400 Body weight 91.8 kg Paolo Casillas APRN.PERFECT BIND MACHINE OPERATOR Work Phone: [facility] 07-08-2025 10:01-0400 Heart rate 66 /min Paolo Casillas APRN.PERFECT BIND MACHINE OPERATOR Work Phone: [facility] 07-08-2025 10:01-0400 Respiratory rate 18 /min Paolo Casillas APRN.PERFECT BIND MACHINE OPERATOR Work Phone: [facility] 07-08-2025 10:01-0400 SaO2% (BldA) [Mass fraction] 95 % Paolo Casillas APRN.PERFECT BIND MACHINE OPERATOR Work Phone: [facility] 06-19-2025 09:31-0400 Body height 166.37 cm Nathan Ball DO Work Phone: [facility] 06-19-2025 09:31-0400 Body mass index (BMI) [Ratio] 32.4 kg/m2 Nathan Ball DO Work Phone: [facility] 06-19-2025 09:31-0400 Body weight 89.81 kg Nathan Ball DO Work Phone: [facility] 06-19-2025 09:31-0400 Diastolic blood pressure 70 mm[Hg] Nathan Ball DO Work Phone: [facility] 06-19-2025 09:31-0400 Heart rate 62 /min Nathan Ball DO Work Phone: [facility] 06-19-2025 09:31-0400 Respiratory rate 14 /min Nathan Ball DO Work Phone: [facility] 06-19-2025 09:31-0400 SaO2% (BldA) [Mass fraction] 96 % Nathan Ball DO Work Phone: [facility] 06-19-2025 09:31-0400 Systolic blood pressure 146 mm[Hg] Nathan Ball DO Work Phone: [facility] 05-19-2025 15:33-0400 Body height 166.37 cm Nathan Ball DO Work Phone: [facility] 05-19-2025 15:33-0400 Body mass index (BMI) [Ratio] 31.8 kg/m2 Nathan Ball DO Work Phone: [facility] 05-19-2025 15:33-0400 Body weight 88.13 kg Nathan Ball DO Work Phone: [facility] 05-19-2025 15:33-0400 Diastolic blood pressure 74 mm[Hg] Nathan Ball DO Work Phone: [facility] 05-19-2025 15:33-0400 Heart rate 67 /min Nathan Ball DO Work Phone: [facility] 05-19-2025 15:33-0400 Respiratory rate 14 /min Nathan Ball DO Work Phone: [facility] 05-19-2025 15:33-0400 SaO2% (BldA) [Mass fraction] 96 % Nathan Ball DO Work Phone: [facility] 05-19-2025 15:33-0400 Systolic blood pressure 148 mm[Hg] Nathan Ball DO Work Phone: [facility] 03-19-2025 11:22-0400 Body height 166.37 cm Nathan Ball DO Work Phone: [facility] 03-19-2025 11:22-0400 Body mass index (BMI) [Ratio] 31.6 kg/m2 Nathan Ball DO Work Phone: [facility] 03-19-2025 11:22-0400 Body weight 87.54 kg Nathan Ball DO Work Phone: [facility] 03-19-2025 11:22-0400 Diastolic blood pressure 89 mm[Hg] Nathan Ball DO Work Phone: [facility] 03-19-2025 11:22-0400 Heart rate 66 /min Nathan Ball DO Work Phone: [facility] 03-19-2025 11:22-0400 Respiratory rate 12 /min Nathan Ball DO Work Phone: [facility] 03-19-2025 11:22-0400 SaO2% (BldA) [Mass fraction] 97 % Nathan Ball DO Work Phone: [facility] 03-19-2025 11:22-0400 Systolic blood pressure 139 mm[Hg] Nathan Ball DO Work Phone: [facility] 03-17-2025 10:42-0400 Body height 165.[address] 03-17-2025 10:42-0400 Body mass index (BMI) [Ratio] 33.28 kg/m2 [address] 03-17-2025 10:42-0400 Body weight 90.[address] 03-17-2025 10:42-0400 Diastolic blood pressure 60 mm[Hg] [address] 03-17-2025 10:42-0400 Systolic blood pressure 120 mm[Hg] [address] 03-13-2025 13:25-0400 Body height 166.37 cm Nathan Ball DO Work Phone: [facility] 03-13-2025 13:25-0400 Body mass index (BMI) [Ratio] 33 kg/m2 Nathan Ball DO Work Phone: [facility] 03-13-2025 13:25-0400 Body weight 91.28 kg Nathan Ball DO Work Phone: [facility] 03-13-2025 13:25-0400 Diastolic blood pressure 68 mm[Hg] Nathan Ball DO Work Phone: [facility] 03-13-2025 13:25-0400 Heart rate 90 /min Nathan Ball DO Work Phone: [facility] 03-13-2025 13:25-0400 Respiratory rate 12 /min Nathan Ball DO Work Phone: [facility] 03-13-2025 13:25-0400 Systolic blood pressure 148 mm[Hg] Nathan Ball DO Work Phone: [facility] 02-25-2025 08:46-0400 Body height 165.1 cm Reyna Esparza MD Work Phone: [facility] 02-25-2025 08:46-0400 Body mass index (BMI) [Ratio] 32.45 kg/m2 Reyna Esparza MD Work Phone: [facility] 02-25-2025 08:46-0400 Body weight 88.45 kg Reyna Esparza MD Work Phone: [facility] 02-25-2025 08:46-0400 Diastolic blood pressure 59 mm[Hg] Reyna Esparza MD Work Phone: [facility] 02-25-2025 08:46-0400 Heart rate 72 /min Reyna Esparza MD Work Phone: [facility] 02-25-2025 08:46-0400 Systolic blood pressure 118 mm[Hg] Reyna Esparza MD Work Phone: [facility] 02-12-2025 10:20-0400 Diastolic blood pressure 70 mm[Hg] Nathan Ball DO Work Phone: [facility] 02-12-2025 10:20-0400 Heart rate 56 /min Nathan Ball DO Work Phone: [facility] 02-12-2025 10:20-0400 Respiratory rate 18 /min Nathan Ball DO Work Phone: [facility] 02-12-2025 10:20-0400 SaO2% (BldA) [Mass fraction] 97 % Nathan Ball DO Work Phone: [facility] 02-12-2025 10:20-0400 Systolic blood pressure 190 mm[Hg] Nathan Ball DO Work Phone: [facility] 02-12-2025 06:29-0400 Body height 165.1 cm Nathan Ball DO Work Phone: [facility] 02-12-2025 06:29-0400 Body temperature 98.3 [degF] Nathan Ball DO Work Phone: [facility] 02-12-2025 06:29-0400 Body weight 90.9 kg Nathan Ball DO Work Phone: [facility] 01-22-2025 10:20-0400 Body height 166.37 cm Nathan Ball DO Work Phone: [facility] 01-22-2025 10:20-0400 Body mass index (BMI) [Ratio] 31.9 kg/m2 Nathan Ball DO Work Phone: [facility] 01-22-2025 10:20-0400 Body weight 88.45 kg Nathan Ball DO Work Phone: [facility] 01-22-2025 10:20-0400 Diastolic blood pressure 64 mm[Hg] Nathan Ball DO Work Phone: [facility] 01-22-2025 10:20-0400 Heart rate 65 /min Nathan Ball DO Work Phone: [facility] 01-22-2025 10:20-0400 Respiratory rate 12 /min Nathan Ball DO Work Phone: [facility] 01-22-2025 10:20-0400 Systolic blood pressure 215 mm[Hg] Nathan Ball DO Work Phone: [facility] 01-12-2025 11:10-0400 Body height 165.1 cm Holden Rosado CONFECTIONERY MAKER-PER[employer]ECT BIND MACHINE OPERATOR Work Phone: [facility] 01-12-2025 11:10-0400 Body mass index (BMI) [Ratio] 33.28 kg/m2 Holden Rosado CONFECTIONERY MAKER-PERFECT BIND MACHINE OPERATOR Work Phone: [facility] 01-12-2025 11:10-0400 Body weight 90.72 kg Holden Rosado CONFECTIONERY MAKER-PERFECT BIND MACHINE OPERATOR Work Phone: [facility] 01-12-2025 11:10-0400 Diastolic blood pressure 60 mm[Hg] Holden Rosado CONFECTIONERY MAKER-PERFECT BIND MACHINE OPERATOR Work Phone: [facility] 01-12-2025 11:10-0400 Heart rate 60 /min Holden Rosado CONFECTIONERY MAKER-PERFECT BIND MACHINE OPERATOR Work Phone: [facility] 01-12-2025 11:10-0400 Systolic blood pressure 124 mm[Hg] Holden Rosado CONFECTIONERY MAKER-PERFECT BIND MACHINE OPERATOR Work Phone: [facility] 12-16-2024 10:50-0500 Body height 166.37 cm Nathan Ball DO Work Phone: [facility] 12-16-2024 10:50-0500 Body mass index (BMI) [Ratio] 32 kg/m2 Nathan Ball DO Work Phone: [facility] 12-16-2024 10:50-0500 Body weight 88.59 kg Nathan Ball DO Work Phone: [facility] 12-16-2024 10:50-0500 Diastolic blood pressure 67 mm[Hg] Nathan Ball DO Work Phone: [facility] 12-16-2024 10:50-0500 Heart rate 56 /min Nathan Ball DO Work Phone: [facility] 12-16-2024 10:50-0500 SaO2% (BldA) [Mass fraction] 97 % Nathan Ball DO Work Phone: [facility] 12-16-2024 10:50-0500 Systolic blood pressure 136 mm[Hg] Nathan Ball DO Work Phone: [facility] 11-25-2024 13:55-0500 Body height 165.1 cm Reyna Esparza MD Work Phone: [facility] 11-25-2024 13:55-0500 Body mass index (BMI) [Ratio] 32.28 kg/m2 Reyna Esparza MD Work Phone: [facility] 11-25-2024 13:55-0500 Body weight 88 kg Reyna Esparza MD Work Phone: [facility] 11-25-2024 13:55-0500 Diastolic blood pressure 64 mm[Hg] Reyna Esparza MD Work Phone: [facility] 11-25-2024 13:55-0500 Heart rate 60 /min Reyna Esparza MD Work Phone: [facility] 11-25-2024 13:55-0500 Systolic blood pressure 141 mm[Hg] Reyna Esparza MD Work Phone: [facility] 11-17-2024 13:05-0500 Diastolic blood pressure 59 mm[Hg] Nathan Ball DO Work Phone: [facility] 11-17-2024 13:05-0500 Heart rate 68 /min Nathan Ball DO Work Phone: [facility] 11-17-2024 13:05-0500 Respiratory rate 16 /min Nathan Ball DO Work Phone: [facility] 11-17-2024 13:05-0500 SaO2% (BldA) [Mass fraction] 94 % Nathan Ball DO Work Phone: [facility] 11-17-2024 13:05-0500 Systolic blood pressure 163 mm[Hg] Nathan Ball DO Work Phone: [facility] 11-17-2024 10:05-0500 Body height 166.37 cm Nathan Ball DO Work Phone: [facility] 11-17-2024 10:05-0500 Body weight 89.35 kg Nathan Ball DO Work Phone: [facility] 10-08-2024 10:40-0500 Body height 165.1 cm Edinson Perry DO Work Phone: [facility] 10-08-2024 10:40-0500 Body mass index (BMI) [Ratio] 33.12 kg/m2 Edinson Perry DO Work Phone: [facility] 10-08-2024 10:40-0500 Body weight 90.27 kg Edinson Perry DO Work Phone: [facility] 10-08-2024 10:40-0500 Diastolic blood pressure 60 mm[Hg] Edinson Perry DO Work Phone: [facility] 10-08-2024 10:40-0500 Heart rate 78 /min Edinson Perry DO Work Phone: [facility] 10-08-2024 10:40-0500 Systolic blood pressure 124 mm[Hg] Edinson Perry DO Work Phone: [facility] 09-11-2024 10:19-0500 Body height 165.1 cm [facility] 09-11-2024 10:190500 Body mass index (BMI) [Ratio] 32.3 kg/m2 [facility] 09-11-2024 10:190500 Body weight 88.13 kg [facility] 09-11-2024 10:190500 Diastolic blood pressure 54 mm[Hg] [facility] 09-11-2024 10:19-0500 Heart rate 63 /min [facility] 09-11-2024 10:190500 SaO2% (BldA) [Mass fraction] 97 % [facility] 09-11-2024 10:190500 Systolic blood pressure 118 mm[Hg] [facility] 06-03-2024 10:54-0400 Body height 165.1 cm DO Nathan Ball Work Phone: [facility] 06-03-2024 10:54-0400 Body mass index (BMI) [Ratio] 26.8 kg/m2 DO Nathan Ball Work Phone: [facility] 06-03-2024 10:54-0400 Body weight 73.02 kg DO Nathan Ball Work Phone: [facility] 06-03-2024 10:54-0400 Diastolic blood pressure 89 mm[Hg] DO Nathan Ball Work Phone: [facility] 06-03-2024 10:54-0400 Heart rate 56 /min DO Nathan Ball Work Phone: [facility] 06-03-2024 10:54-0400 Respiratory rate 12 /min DO Nathan Ball Work Phone: [facility] 06-03-2024 10:54-0400 Systolic blood pressure 139 mm[Hg] DO Nathan Ball Work Phone: [facility] 04-21-2024 10:21-0400 Body mass index (BMI) [Ratio] 32.98 kg/m2 Holden Rosado CONFECTIONERY MAKER-PERFECT BIND MACHINE OPERATOR Work Phone: [facility] 04-21-2024 10:21-0400 Body weight 89.9 kg Holden Rosado CONFECTIONERY MAKER-PERFECT BIND MACHINE OPERATOR Work Phone: [facility] 04-21-2024 10:21-0400 Diastolic blood pressure 70 mm[Hg] Holden Rosado CONFECTIONERY MAKER-PERFECT BIND MACHINE OPERATOR Work Phone: [facility] 04-21-2024 10:21-0400 Heart rate 60 /min Holden Rosado CONFECTIONERY MAKER-PERFECT BIND MACHINE OPERATOR Work Phone: [facility] 04-21-2024 10:21-0400 Systolic blood pressure 132 mm[Hg] Holden Rosado CONFECTIONERY MAKER-PERFECT BIND MACHINE OPERATOR Work Phone: [facility] 03-12-2024 09:27-0400 Diastolic blood pressure 66 mm[Hg] [address] 03-12-2024 09:27-0400 Heart rate 62 /min [address] 03-12-2024 09:27-0400 Systolic blood pressure 114 mm[Hg] [address] 03-05-2024 11:46-0400 Body height 165.1 cm Holden Rosado CONFECTIONERY MAKER-PERFECT BIND MACHINE OPERATOR Work Phone: [facility] 03-05-2024 11:46-0400 Body mass index (BMI) [Ratio] 32.62 kg/m2 Holden Rosado CONFECTIONERY MAKER-PERFECT BIND MACHINE OPERATOR Work Phone: [facility] 03-05-2024 11:46-0400 Body weight 88.91 kg Holden Rosado CONFECTIONERY MAKER-PERFECT BIND MACHINE OPERATOR Work Phone: [facility] 03-05-2024 11:46-0400 Diastolic blood pressure 68 mm[Hg] Holden Rosado CONFECTIONERY MAKER-PERFECT BIND MACHINE OPERATOR Work Phone: [facility] 03-05-2024 11:46-0400 Heart rate 62 /min Holden Rosado CONFECTIONERY MAKER-PERFECT BIND MACHINE OPERATOR Work Phone: [facility] 03-05-2024 11:46-0400 Systolic blood pressure 120 mm[Hg] Holden Rosado CONFECTIONERY MAKER-PERFECT BIND MACHINE OPERATOR Work Phone: [facility] 02-27-2024 09:53-0400 Body height 165.1 cm DO Nathan Ball Work Phone: [facility] 02-27-2024 09:53-0400 Body mass index (BMI) [Ratio] 31.9 kg/m2 DO Nathan Ball Work Phone: [facility] 02-27-2024 09:53-0400 Body weight 87.08 kg DO Nathan Ball Work Phone: [facility] 02-27-2024 09:53-0400 Diastolic blood pressure 72 mm[Hg] DO Nathan Ball Work Phone: [facility] 02-27-2024 09:53-0400 Heart rate 62 /min DO Nathan Ball Work Phone: [facility] 02-27-2024 09:53-0400 SaO2% (BldA) [Mass fraction] 97 % DO Nathan Ball Work Phone: [facility] 02-27-2024 09:53-0400 Systolic blood pressure 132 mm[Hg] DO Nathan Ball Work Phone: [facility] 02-13-2024 10:30-0400 Body height 165.1 cm [facility] 02-13-2024 10:30-0400 Body mass index (BMI) [Ratio] 32.8 kg/m2 [facility] 02-13-2024 10:30-0400 Body weight 89.35 kg [facility] 02-13-2024 10:30-0400 Diastolic blood pressure 60 mm[Hg] [facility] 02-13-2024 10:30-0400 Heart rate 56 /min [facility] 02-13-2024 10:30-0400 SaO2% (BldA) [Mass fraction] 98 % [facility] 02-13-2024 10:30-0400 Systolic blood pressure 128 mm[Hg] [facility] 02-01-2024 11:01-0400 Body height 165.1 cm [facility] 02-01-2024 11:01-0400 Body mass index (BMI) [Ratio] 27.3 kg/m2 [facility] 02-01-2024 11:01-0400 Body weight 74.44 kg [facility] 02-01-2024 11:01-0400 Diastolic blood pressure 72 mm[Hg] [facility] 02-01-2024 11:01-0400 Heart rate 49 /min [facility] 02-01-2024 11:01-0400 Respiratory rate 12 /min [facility] 02-01-2024 11:01-0400 Systolic blood pressure 131 mm[Hg] [facility] 11-02-2023 11:00-0500 Body height 165.1 cm Nathan Ball Other [facility] Other 11-02-2023 11:00-0500 Body mass index (BMI) [Ratio] 31.78 kg/m2 Nathan Ball Other [facility] Other 11-02-2023 11:00-0500 Body weight 86.64 kg Nathan Ball Other [facility] Other 11-02-2023 11:00-0500 Diastolic blood pressure 80 mm[Hg] Nathan Ball Other [facility] Other 11-02-2023 11:00-0500 Respiratory rate 16 /min Nathan Ball Other [facility] Other 11-02-2023 11:00-0500 Systolic blood pressure 130 mm[Hg] Nathan Ball Other [facility] Other 10-02-2023 09:45-0500 Body height 165.1 cm Nathan Ball Other [facility] Other 10-02-2023 09:45-0500 Body mass index (BMI) [Ratio] 31.61 kg/m2 Nathan Ball Other [facility] Other 10-02-2023 09:45-0500 Body weight 86.18 kg Nathan Ball Other [facility] Other 10-02-2023 09:45-0500 Diastolic blood pressure 74 mm[Hg] Nathan Ball Other [facility] Other 10-02-2023 09:45-0500 Respiratory rate 12 /min Nathan Ball Other [facility] Other 10-02-2023 09:45-0500 Systolic blood pressure 144 mm[Hg] Nathan Ball Other [facility] Other 06-08-2023 11:15-0400 Body height 165.1 cm Nathan Ball Other [facility] Other 06-08-2023 11:15-0400 Body mass index (BMI) [Ratio] 32.95 kg/m2 Nathan Ball Other [facility] Other 06-08-2023 11:15-0400 Body weight 89.81 kg Nathan Ball Other [facility] Other 06-08-2023 11:15-0400 Diastolic blood pressure 62 mm[Hg] Nathan Ball Other [facility] Other 06-08-2023 11:15-0400 Respiratory rate 12 /min Nathan Ball Other [facility] Other 06-08-2023 11:15-0400 Systolic blood pressure 138 mm[Hg] Nathan Ball Other [facility] Other 06-04-2023 13:51-0400 Body temperature 97.7 [degF] Luis Mckenzie MD Work Phone: [facility] 06-04-2023 13:51-0400 Body weight 91.99 kg Luis Mckenzie MD Work Phone: [facility] 06-04-2023 13:51-0400 Diastolic blood pressure 58 mm[Hg] Luis Mckenzie MD Work Phone: [facility] 06-04-2023 13:51-0400 Heart rate 56 /min Luis Mckenzie MD Work Phone: [facility] 06-04-2023 13:51-0400 Respiratory rate 18 /min Luis Mckenzie MD Work Phone: [facility] 06-04-2023 13:51-0400 SaO2% (BldA) [Mass fraction] 98 % Luis Mckenzie MD Work Phone: [facility] 06-04-2023 13:51-0400 Systolic blood pressure 155 mm[Hg] Luis Mckenzie MD Work Phone: [facility] 05-25-2023 11:15-0400 Body height 165.1 cm Nathan Ball Other [facility] Other 05-25-2023 11:15-0400 Body mass index (BMI) [Ratio] 32.86 kg/m2 Nathan Ball Other [facility] Other 05-25-2023 11:15-0400 Body weight 89.59 kg Nathan Ball Other [facility] Other 05-25-2023 11:15-0400 Diastolic blood pressure 68 mm[Hg] Nathan Ball Other [facility] Other 05-25-2023 11:15-0400 Respiratory rate 16 /min Nathan Ball Other [facility] Other 05-25-2023 11:15-0400 Systolic blood pressure 142 mm[Hg] Nathan Ball Other [facility] Other 05-18-2023 15:30-0400 Body temperature 97.7 [degF] DO Nathan Ball Work Phone: [facility] 05-18-2023 15:30-0400 Diastolic blood pressure 71 mm[Hg] DO Nathan Ball Work Phone: [facility] 05-18-2023 15:30-0400 Heart rate 62 /min DO Nathan Ball Work Phone: [facility] 05-18-2023 15:30-0400 Respiratory rate 16 /min DO Nathan Ball Work Phone: [facility] 05-18-2023 15:30-0400 SaO2% (BldA) [Mass fraction] 95 % DO Nathan Ball Work Phone: [facility] 05-18-2023 15:30-0400 Systolic blood pressure 145 mm[Hg] DO Nathan Ball Work Phone: [facility] 05-18-2023 05:39-0400 Body weight 88.1 kg DO Nathan Ball Work Phone: [facility] 05-17-2023 20:00-0400 Inhaled oxygen flow rate 1.5 L/min DO Nathan Ball Work Phone: [facility] 05-17-2023 15:54-0400 Body height 172.72 cm DO Nathan Ball Work Phone: [facility] 05-16-2023 11:30-0400 Body height 165.1 cm Nathan Ball Other [facility] Other 05-16-2023 11:30-0400 Body mass index (BMI) [Ratio] 33.28 kg/m2 Nathan Ball Other [facility] Other 05-16-2023 11:30-0400 Body weight 90.72 kg Nathan Ball Other [facility] Other 05-16-2023 11:30-0400 Diastolic blood pressure 69 mm[Hg] Nathan Ball Other [facility] Other 05-16-2023 11:30-0400 Respiratory rate 16 /min Nathan Ball Other [facility] Other 05-16-2023 11:30-0400 Systolic blood pressure 192 mm[Hg] Nathan Ball Other [facility] Other 05-09-2023 11:15-0400 Body height 165.1 cm Nathan Ball Other [facility] Other 05-09-2023 11:15-0400 Body mass index (BMI) [Ratio] 32.75 kg/m2 Nathan Ball Other [facility] Other 05-09-2023 11:15-0400 Body weight 89.27 kg Nathan Ball Other [facility] Other 05-09-2023 11:15-0400 Diastolic blood pressure 62 mm[Hg] Nathan Ball Other [facility] Other 05-09-2023 11:15-0400 Respiratory rate 16 /min Nathan Ball Other [facility] Other 05-09-2023 11:15-0400 SaO2% (BldA) [Mass fraction] 98 % Nathan Ball Other [facility] Other 05-09-2023 11:15-0400 Systolic blood pressure 189 mm[Hg] Nathan Ball Other [facility] Other 04-26-2023 11:30-0400 Body height 165.1 cm Nathan Ball Other [facility] Other 04-26-2023 11:30-0400 Body mass index (BMI) [Ratio] 32.53 kg/m2 Nathan Ball Other [facility] Other 04-26-2023 11:30-0400 Body weight 88.68 kg Nathan Ball Other [facility] Other 04-26-2023 11:30-0400 Diastolic blood pressure 80 mm[Hg] Nathan Ball Other [facility] Other 04-26-2023 11:30-0400 Respiratory rate 16 /min Nathan Ball Other [facility] Other 04-26-2023 11:30-0400 Systolic blood pressure 136 mm[Hg] Nathan Ball Other [facility] Other 04-18-2023 09:45-0400 Body height 165.1 cm Nathan Ball Other [facility] Other 04-18-2023 09:45-0400 Body mass index (BMI) [Ratio] 33.28 kg/m2 Nathan Ball Other [facility] Other 04-18-2023 09:45-0400 Body weight 90.72 kg Nathan Ball Other [facility] Other 04-18-2023 09:45-0400 Diastolic blood pressure 76 mm[Hg] Nathan Ball Other [facility] Other 04-18-2023 09:45-0400 Respiratory rate 20 /min Nathan Ball Other [facility] Other 04-18-2023 09:45-0400 SaO2% (BldA) [Mass fraction] 98 % Nathan Ball Other [facility] Other 04-18-2023 09:45-0400 Systolic blood pressure 132 mm[Hg] Nathan Ball Other [facility] Other 03-15-2023 10:45-0400 Body height 165.1 cm Nathan Ball Other [facility] Other 03-15-2023 10:45-0400 Body mass index (BMI) [Ratio] 31.95 kg/m2 Nathan Ball Other [facility] Other 03-15-2023 10:45-0400 Body weight 87.09 kg Nathan Ball Other [facility] Other 03-15-2023 10:45-0400 Diastolic blood pressure 77 mm[Hg] Nathan Ball Other [facility] Other 03-15-2023 10:45-0400 Respiratory rate 16 /min Nathan Ball Other [facility] Other 03-15-2023 10:45-0400 Systolic blood pressure 151 mm[Hg] Nathan Ball Other [facility] Other 03-09-2023 17:00-0400 Body temperature 97.9 [degF] DO Nathan Ball Work Phone: [facility] 03-09-2023 17:00-0400 Diastolic blood pressure 72 mm[Hg] DO Nathan Ball Work Phone: [facility] 03-09-2023 17:00-0400 Heart rate 54 /min DO Nathan Ball Work Phone: [facility] 03-09-2023 17:00-0400 Respiratory rate 16 /min DO Nathan Ball Work Phone: [facility] 03-09-2023 17:00-0400 SaO2% (BldA) [Mass fraction] 96 % DO Nathan Ball Work Phone: [facility] 03-09-2023 17:00-0400 Systolic blood pressure 140 mm[Hg] DO Nathan Ball Work Phone: [facility] 03-09-2023 08:11-0400 Body height 165.1 cm DO Nathan Ball Work Phone: [facility] 03-09-2023 08:11-0400 Body weight 90 kg DO Nathan Ball Work Phone: [facility] 03-07-2023 10:14-0400 Diastolic blood pressure 70 mm[Hg] Nathan E Ball Work Phone: [facility] [address] DO Work Phone: 03-07-2023 10:14-0400 Systolic blood pressure 138 mm[Hg] Nathan E Ball Work Phone: [facility] [address] DO Work Phone: 03-07-2023 10:04-0400 Body height 165.1 cm Nathan E Ball Work Phone: [facility] [place] [address] DO Work Phone: 03-07-2023 10:04-0400 Body mass index (BMI) [Ratio] 33.95 kg/m2 Nathan E Ball Work Phone: [facility] [address] DO Work Phone: 03-07-2023 10:04-0400 Body surface area Derived from formula 1.99 m2 Nathan E Ball Work Phone: [facility] DO Work Phone: 03-07-2023 10:04-0400 Body weight 92.53 kg Nathan E Ball Work Phone: [facility] DO Work Phone: 03-07-2023 10:04-0400 Diastolic blood pressure 72 mm[Hg] Nathan E Ball Work Phone: [facility] [address] DO Work Phone: 03-07-2023 10:04-0400 Heart rate 45 /min Nathan E Ball Work Phone: [facility] [address] DO Work Phone: 03-07-2023 10:04-0400 Systolic blood pressure 144 mm[Hg] Nathan E Ball Work Phone: [facility] [address] DO Work Phone: 02-14-2023 11:15-0400 Body height 165.1 cm Nathan Ball Other [facility] Other 02-14-2023 11:15-0400 Body mass index (BMI) [Ratio] 32.61 kg/m2 Nathan Ball Other [facility] Other 02-14-2023 11:15-0400 Body weight 88.91 kg Nathan Ball Other [facility] Other 02-14-2023 11:15-0400 Diastolic blood pressure 72 mm[Hg] Nathan Ball Other [facility] Other 02-14-2023 11:15-0400 Respiratory rate 12 /min Nathan Ball Other [facility] Other 02-14-2023 11:15-0400 Systolic blood pressure 204 mm[Hg] Nathan Ball Other [facility] Other 02-02-2023 12:15-0400 Body height 165.1 cm Nathan Ball Other [facility] Other 02-02-2023 12:15-0400 Body mass index (BMI) [Ratio] 32.78 kg/m2 Nathan Ball Other [facility] Other 02-02-2023 12:15-0400 Body weight 89.36 kg Nathan Ball Other [facility] Other 02-02-2023 12:15-0400 Diastolic blood pressure 70 mm[Hg] Nathan Ball Other [facility] Other 02-02-2023 12:15-0400 Respiratory rate 12 /min Nathan Ball Other [facility] Other 02-02-2023 12:15-0400 Systolic blood pressure 201 mm[Hg] Nathan Ball Other [facility] Other 12-14-2022 10:00-0500 Body height 165.1 cm Nathan Ball Other [facility] Other 12-14-2022 10:00-0500 Body mass index (BMI) [Ratio] 32.53 kg/m2 Nathan Ball Other [facility] Other 12-14-2022 10:00-0500 Body weight 88.68 kg Nathan Ball Other [facility] Other 12-14-2022 10:00-0500 Diastolic blood pressure 70 mm[Hg] Nathan Ball Other [facility] Other 12-14-2022 10:00-0500 Respiratory rate 12 /min Nathan Ball Other [facility] Other 12-14-2022 10:00-0500 Systolic blood pressure 140 mm[Hg] Nathan Ball Other [facility] Other 12-04-2022 13:25-0500 Body height 166.4 cm Luis Mckenzie MD Work Phone: [facility] 12-04-2022 13:25-0500 Body temperature 97.11 [degF] Luis Mckenzie MD Work Phone: [facility] 12-04-2022 13:25-0500 Body weight 90.36 kg Luis Mckenzie MD Work Phone: [facility] 12-04-2022 13:25-0500 Diastolic blood pressure 54 mm[Hg] Luis Mckenzie MD Work Phone: [facility] 12-04-2022 13:25-0500 Heart rate 63 /min Luis Mckenzie MD Work Phone: [facility] 12-04-2022 13:25-0500 Respiratory rate 16 /min Luis Mckenzie MD Work Phone: [facility] 12-04-2022 13:25-0500 SaO2% (BldA) [Mass fraction] 96 % Luis Mckenzie MD Work Phone: [facility] 12-04-2022 13:25-0500 Systolic blood pressure 167 mm[Hg] Luis Mckenzie MD Work Phone: [facility] 11-14-2022 15:00-0500 Body height 165.1 cm Nathan Ball Other [facility] Other 11-14-2022 15:00-0500 Body mass index (BMI) [Ratio] 32.53 kg/m2 Nathan Ball Other [facility] Other 11-14-2022 15:00-0500 Body weight 88.68 kg Nathan Ball Other [facility] Other 11-14-2022 15:00-0500 Diastolic blood pressure 72 mm[Hg] Nathan Ball Other [facility] Other 11-14-2022 15:00-0500 Respiratory rate 12 /min Nathan Ball Other [facility] Other 11-14-2022 15:00-0500 Systolic blood pressure 130 mm[Hg] Nathan Ball Other [facility] Other 05-29-2022 10:06-0400 Body height 166.4 cm Luis Mckenzie MD Work Phone: [facility] 05-29-2022 10:06-0400 Body temperature 97.59 [degF] Luis Mckenzie MD Work Phone: [facility] 05-29-2022 10:06-0400 Body weight 89.72 kg Luis Mckenzie MD Work Phone: [facility] 05-29-2022 10:06-0400 Diastolic blood pressure 50 mm[Hg] Luis Mckenzie MD Work Phone: [facility] 05-29-2022 10:06-0400 Heart rate 50 /min Luis Mckenzie MD Work Phone: [facility] 05-29-2022 10:06-0400 Respiratory rate 16 /min Luis Mckenzie MD Work Phone: [facility] 05-29-2022 10:06-0400 SaO2% (BldA) [Mass fraction] 96 % Luis Mckenzie MD Work Phone: [facility] 05-29-2022 10:06-0400 Systolic blood pressure 155 mm[Hg] Luis Mckenzie MD Work Phone: [facility] Encounters Encounter Date Encounter Type Care Provider Facility Start: 08-04-2025 End: 08-04-2025 ambulatory Nathan Ball DO Work Phone: [facility] Work Phone: Start: 08-04-2025 End: 08-04-2025 Patient encounter procedure Kaia Krishna [facility] Work Phone: Start: 07-21-2025 End: 07-21-2025 ambulatory Nathan Hathaway DO Work Phone: [facility] Work Phone: Start: 07-21-2025 End: 07-21-2025 Patient encounter procedure Nathan Fransico [facility] Work Phone: Start: 07-15-2025 Non-patient / Non-visit Valentin peña MD -[facility] Work Phone: Start: 07-15-2025 End: 07-15-2025 ambulatory NATHAN HATHAWAY Facility:[facility] Start: 07-10-2025 End: 07-10-2025 Telephone encounter Valentin Leonard MD Work Phone: [facility] Comment on above: Orders; Patient [facility] te Start: 07-08-2025 End: 07-10-2025 Telephone encounter Paolo Casillas APRN.PERFECT BIND MACHINE OPERATOR Work Phone: [facility] Comment on above: Results Start: 07-08-2025 End: 07-08-2025 Patient encounter procedure Paolo Casillas APRN.PERFECT BIND MACHINE OPERATOR Work Phone: Hematology/Oncology Start: 07-08-2025 Non-patient / Non-visit Fanny Bedoya APRN TROUBLE DISPATCHER-C -[facility] Work Phone: Start: 07-08-2025 End: 07-08-2025 ambulatory Paolo Casillas APRN.PERFECT BIND MACHINE OPERATOR Work Phone: Hematology/Oncology Comment on above: Abnormal SPEP (Prima ry Dx); Primary hypertension; Hyperlipidemia, unspecified hyperlipidemia type; Heart disease; Edema, unspecified type; Monoclonal gammopathy of undetermined significance; Anemia in other chronic diseases classified elsewhere Start: 07-06-2025 End: 07-06-2025 Telephone encounter Paolo Casillas APRN.PERFECT BIND MACHINE OPERATOR Work Phone: Hematology/Oncology Comment on above: Lab Orders (nt) Start: 06-24-2025 Non-patient / Non-visit Nathan michelle DO -[facility] Work Phone: Start: 06-23-2025 Non-patient / Non-visit Nathan michelle DO -[facility] Work Phone: Start: 06-19-2025 End: 06-19-2025 ambulatory Nathan Ball DO Work Phone: [facility] Work Phone: Start: 06-19-2025 End: 06-19-2025 Patient encounter procedure Nathan Ball DO -[facility] Work Phone: Start: 05-19-2025 End: 05-19-2025 ambulatory Nathan Ball DO Work Phone: [facility] Work Phone: Start: 05-19-2025 End: 05-19-2025 Patient encounter procedure Nathan Ball DO -[facility] Work Phone: Start: 03-19-2025 End: 03-19-2025 ambulatory Nathan Ball DO Work Phone: [facility] Work Phone: Start: 03-19-2025 End: 03-19-2025 Patient encounter procedure Nathan Ball DO Work Phone: [facility] Work Phone: Start: 03-18-2025 Non-patient / Non-visit Cadence in Fransico DO Work Phone: [facility] Work Phone: Start: 03-17-2025 End: 03-17-2025 Subsequent hospital visit by physician Laura Blair Echo/Vasc Room 2 [facility] Comment on above: Essential hypertensi on; Palpitations Start: 03-17-2025 End: 03-17-2025 ambulatory HOLDEN Lambert [facility] Start: 03-13-2025 End: 03-13-2025 Patient encounter procedure Nathan Ball DO Work Phone: [facility] Work [...] End: 02-12-2025 Emergency department patient visit Nathan Rudolph Facility:[facility] Start: 02-10-2025 End: 02-10-2025 Clinisync Result Encounter Reyna Esparza MD Work Phone: [facility] External [facility] Unsolicited Start: 02-10-2025 End: 02-10-2025 Clinisync Result Encounter Reyna Esparza MD Work Phone: [facility] External Department Unsolicited Start: 01-26-2025 End: 01-26-2025 ambulatory [facility] Ambulatory Start: 01-23-2025 Non-patient / Non-visit Benjam in Ball DO Work Phone: [facility] Work Phone: Start: 01-22-2025 End: 01-22-2025 ambulatory Nathan Hathaway DO Work Phone: [facility] Work Phone: Start: 01-22-2025 End: 01-22-2025 Patient encounter procedure Nathan Ball DO Work Phone[facility] Work Phone: Start: 01-12-2025 End: 01-12-2025 Office outpatient visit 25 minutes Holden Rosado CONFECTIONERY MAKER-PERFECT BIND MACHINE OPERATOR Work Phone: [facility] Comment on above: BMI 33.0-33.9,adult (Primary Dx); Essential hypertension; Palpitations; ASHD (arteriosclerotic heart disease); Mixed hyperlipidemia Start: 01-12-2025 End: 01-12-2025 ambulatory HOLDEN Lambert [facility] Ambulatory Start: 12-29-2024 End: 12-29-2024 ambulatory Nathan Hathaway DO Work Phone: [facility] Work Phone: Start: 12-29-2024 End: 12-29-2024 Patient encounter procedure Nathan Fransico DO Work Phone: [facility] Work Phone: Start: 12-18-2024 Non-patient / Non-visit Benjam in Ball DO Work Phone: [facility] Work Phone: Start: 12-16-2024 End: 12-16-2024 Patient encounter procedure Nathan Hathaway DO Work Phone: [facility] Work Phone: Start: 11-25-2024 End: 11-25-2024 [...] 11-19-2024 ambulatory Nathan Hathaway DO Work Phone: [facility] Work Phone: Start: 11-19-2024 Non-patient / Non-visit Benjam in Ball DO Work Phone: [facility] Work Phone: Start: 11-17-2024 End: 11-17-2024 Admission to same day surgery center Nathan Hathaway DO Work Phone: [facility] [place] Work Phone: Start: 11-17-2024 End: 11-17-2024 ambulatory Nathan Hathaway DO Work Phone: [facility] Work Phone: Start: 10-09-2024 End: 10-09-2024 Refill Mildred Braxton COT Work Phone: [facility] Start: 10-08-2024 End: 10-08-2024 Office outpatient visit 25 minutes Edinson Pakdon DO Work Phone: [facility] Comment on above: ASHD (arteriosclerot ic heart disease); Essential hypertension; BMI 33.0-33.9,adult; Former smoker; S/P PTCA (percutaneous transluminal coronary angioplasty); Mixed hyperlipidemia; Coronary arteriosclerosis after percutaneous transluminal coronary angioplasty (PTCA) Start: 10-08-2024 End: 10-08-2024 ambulatory [facility] Amb[facility] Start: 09-12-2024 Non-patient / Non-visit Benjam in Fransico DO Work Phone: [facility] Work Phone: Start: 09-11-2024 End: 09-11-2024 ambulatory [facility] Work Phone: Start: 09-11-2024 End: 09-11-2024 Patient encounter procedure [facility] Work Phone: Start: 09-04-2024 Non-patient / Non-visit [facility] Work Phone: Start: 07-16-2024 End: 07-16-2024 ambulatory [facility] Work Phone: Start: 07-16-2024 End: 07-16-2024 Patient encounter procedure [facility] Work Phone: Start: 06-03-2024 End: 06-03-2024 ambulatory DO Nathan Hathaway Work Phone: [facility] Work Phone: Start: 06-03-2024 End: 06-03-2024 Patient encounter procedure DO Nathan Hathaway Work Phone: [facility] Work Phone: Start: 05-20-2024 Non-patient / Non-visit DO Natalio Hathaway Work Phone[facility] Work Phone: Start: 04-30-2024 Non-patient / Non-visit DO Natalio Hathaway Work Phone: [facility] Work Phone: Start: 04-28-2024 End: 04-28-2024 ambulatory [facility] TSE Not Available Start: 04-21-2024 End: 04-21-2024 Office outpatient visit 15 minutes Holden Lambert [place] CONFECTIONERY MAKER-PERFECT BIND MACHINE OPERATOR Work Phone: [facility] Comment on above: Essential hypertensi on (Primary Dx); ASHD (arteriosclerotic heart disease); Mixed hyperlipidemia; BMI 32.0-32.9,adult Start: 04-21-2024 End: 04-21-2024 ambulatory [facility] Ambulatory Start: 03-12-2024 End: 03-12-2024 Subsequent hospital visit by physician Laura Shabazz [address] [facility] Comment on above: ASHD (arteriosclerot ic heart disease) Start: 03-05-2024 End: 03-05-2024 Patient encounter procedure DO Nathan Hathaway Work Phone: [facility] [place] Work Phone: Start: 03-05-2024 End: 03-05-2024 ambulatory DO Nathan Hathaway Work Phone: [facility] Work Phone: Start: 03-05-2024 End: 03-05-2024 Office outpatient visit 25 minutes Holden Rosado CONFECTIONERY MAKER-PERFECT BIND MACHINE OPERATOR Work Phone: [facility] Comment on above: ASHD (arteriosclerot ic heart disease) (Primary Dx); Essential hypertension; Mixed hyperlipidemia; BMI 32.0-32.9,adult Start: 02-27-2024 End: 02-27-2024 Patient encounter procedure DO Nathan Hathaway Work Phone: [facility] Work Phone: Start: 02-21-2024 Non-patient / Non-visit DO Natalio Hathaway Work Phone: [facility] Work Phone: Start: 02-20-2024 Non-patient / Non-visit DO Natalio Hathaway Work Phone: [facility] Work Phone: Start: 02-19-2024 Non-patient / Non-visit DO Natalio Hathaway Work Phone: [facility] Work Phone: Start: 02-18-2024 Non-patient / Non-visit DO Natalio Hathaway Work Phone: [facility] Work Phone: Start: 02-13-2024 End: 02-13-[address] [facility] Work Phone: Start: 02-13-2024 End: 02-13-2024 Patient encounter procedure [facility] Work Phone: Start: 02-02-2024 Non-patient / Non-visit [facility] Work Phone: Start: 02-01-2024 End: 02-01-2024 ambulatory [facility] Work Phone: Start: 02-01-2024 End: 02-01-2024 Patient encounter procedure [facility] Work Phone: Start: 01-04-2024 End: 01-04-2024 ambulatory Nathan Ball Other [facility] Other Start: 01-04-2024 Telephone encounter Nathan Hathaway [facility] Start: 12-18-2023 Non-patient / Non-visit [facility] Work Phone: Start: 11-27-2023 End: 11-27-2023 ambulatory Nathan Ball Other [facility] Other Start: 11-27-2023 Telephone encounter Nathan Ball [facility] Start: 11-02-2023 End: 11-02-2023 ambulatory Nathan Ball Other [employer] Other Start: 11-02-2023 Office outpatient vi sit 25 minutes Nathan Ball [facility] Start: 10-02-2023 End: 10-02-2023 ambulatory Nathan Ball Other [employer] Other Start: 10-02-2023 Office outpatient vi sit 25 minutes Nathan Ball [facility] Start: 09-26-2023 End: 09-26-2023 ambulatory Nathan Ball Other [employer] Other Start: 09-26-2023 Telephone encounter Nathan Ball [facility] Start: 09-21-2023 End: 09-21-2023 ambulatory Nathan Ball Other [facility] Other Start: 09-21-2023 Telephone encounter Nathan Ball [facility] Start: 2023 End: 2023 ambulatory Nathan Ball Other [employer] Other Start: 2023 Telephone encounter Nathan Ball [facility] Start: 09-13-2023 End: 09-13-2023 ambulatory Nathan Ball Other [employer] Other Start: 09-13-2023 Telephone encounter Nathan Ball [facility] Start: 09-11-2023 End: 09-11-2023 ambulatory Nathan Ball Other [facility] Other Start: 09-11-2023 Office outpatient vi sit 15 minutes Nathan Ball [facility] Start: 08-16-2023 End: 08-16-2023 ambulatory Nathan Ball Other [facility] Other Start: 08-16-2023 Telephone encounter Nathan Ball [facility] Start: 07-31-2023 End: 07-31-2023 ambulatory Nathan Ball Other [facility] Other Start: 07-31-2023 Telephone encounter Nathan Ball [facility] Start: 07-30-2023 End: 07-30-2023 ambulatory Nathan Ball Other [facility] Other Start: 07-30-2023 Telephone encounter Nathan Ball [facility] Start: 07-19-2023 End: 07-19-2023 ambulatory Nathan Ball Other [facility] Other Start: 07-19-2023 Telephone encounter Nathan Ball [facility] Start: 07-18-2023 End: 07-18-2023 ambulatory Nathan Ball Other [facility] Other Start: 07-18-2023 Telephone encounter Nathan Ball [facility] Start: 07-17-2023 End: 07-17-2023 ambulatory Nathan Ball Other [employer] Other Start: 07-17-2023 Nursing evaluation o f patient and report Nathan Hathaway [facility] Start: 06-28-2023 End: 06-28-2023 ambulatory Nathan Ball Other [facility] Other Start: 06-28-2023 Telephone encounter Nathan Hathaway [facility] Start: 06-25-2023 End: 06-25-2023 ambulatory Nathan Hathaway Other [facility] Other Start: 06-25-2023 Telephone encounter Nathan aHthaway [facility] Start: 06-21-2023 End: 06-21-2023 ambulatory Nathan Hathaway Other [facility] Other Start: 06-21-2023 Telephone encounter Nathan Hathaway [facility] Start: 06-19-2023 End: 06-19-2023 ambulatory Nathan Hathaway Other [employer] Other Start: 06-19-2023 Telephone encounter Nathan Hathaway [facility] Start: 06-18-2023 End: 06-18-2023 ambulatory Nathan Hathaway Other [facility] Other Start: 06-18-2023 Telephone encounter Nathan Hathaway [facility] Start: 06-15-2023 End: 06-15-2023 ambulatory Nathan Hathaway Other [facility] Other Start: 06-15-2023 Telephone encounter Nathan Hathaway [facility] Start: 06-08-2023 End: 06-08-2023 ambulatory Nathan Hathaway Other [facility] Other Start: 06-08-2023 Office outpatient vi sit 15 minutes Nathan Hathaway [facility] Start: 06-06-2023 Telephone encounter Cristy Rico Hematology/Oncology Comment on above: Results Start: 06-04-2023 End: 06-04-2023 ambulatory Luis Mckenzie MD Work Phone: [facility] Other Comment on above: Abnormal SPEP (Prima ry Dx); Anemia, unspecified type; Neuropathy - (NOS); Heart disease Start: 06-04-2023 End: 06-04-2023 Patient encounter procedure Luis Mckenzie MD Work Phone: [facility] Start: 06-04-2023 Telephone encounter Nathan Hathaway [facility] Start: 06-01-2023 End: 06-01-2023 ambulatory Nathan Hathaway Other [employer] Other Start: 06-01-2023 Telephone encounter Nathan Hathaway [facility] Start: 05-25-2023 End: 05-25-2023 ambulatory Nathan Hathaway Other [employer] Other Start: 05-25-2023 Transitional care julito stark srvc 14 day discharge Nathan Hathaway [facility] Start: 05-17-2023 End: 05-18-2023 Evaluation and management of inpatient DO Nathan Hathaway Work Phone: [facility] [place] [facility] Work Phone: Start: 05-17-2023 End: 05-18-2023 observation encounter DO Nathan Hathaway Work Phone: [facility] Work Phone: Start: 05-16-2023 End: 05-16-2023 ambulatory Nathan Hathaway Other [employer] Other Start: 05-16-2023 Office outpatient vi sit 25 minutes Nathan Hathaway [facility] Start: 05-09-2023 End: 05-09-2023 ambulatory Nathan Hathaway Other [employer] Other Start: 05-09-2023 Office outpatient vi sit 25 minutes Nathan Hathaway [facility] Start: 05-09-2023 Telephone encounter Nathan Hathaway Work Phone: [facility] [facility] DO Work Phone: Start: 04-26-2023 End: 04-26-2023 ambulatory Nathan Hathaway Other [employer] Other Start: 04-26-2023 Office outpatient vi sit 25 minutes Nathan Hathaway [facility] Start: 04-26-2023 Telephone encounter Nathan Hathaway [facility] Start: 04-18-2023 End: 04-18-2023 ambulatory Nathan Hathaway Other [facility] [employer] Other Start: 04-18-2023 Office outpatient vi sit 25 minutes Nathan Hathaway [facility] Start: 04-18-2023 Telephone encounter Nathan Hathaway [facility] Start: 03-27-2023 End: 03-27-2023 ambulatory Nathan Hathaway Other [employer] Other Start: 03-27-2023 Telephone encounter Nathan Hathaway [facility] Start: 03-15-2023 End: 03-15-2023 ambulatory Nathan Hathaway [facility] Other Start: 03-15-2023 Office outpatient vi sit 25 minutes Nathan Hathaway [facility] Start: 03-09-2023 End: 03-09-[address] Edinson [facility] Other Start: 03-09-2023 Telephone encounter Nathan Hathaway [facility] Start: 03-09-2023 SURGNON, Provider: Edinson Perry, Status: Pen, Time: 10:00 AM Nathan Hathaway Work Phone: [facility] [facility] DO Work Phone: Start: 03-09-2023 End: 03-09-2023 Admission to same day surgery center DO Nathan Ball Work Phone: [facility]Post Anesthesia Room Nurse Work Phone: Start: 03-08-2023 End: 03-08-2023 ambulatory DO Nathan Ball Work Phone: [facility] Work Phone: Start: 03-08-2023 End: 03-08-2023 Patient encounter procedure DO Nathan Ball Work Phone: [facility] Work Phone: Start: 03-07-2023 Office consultation new/estab patient 80 min Nathan Hathaway Work Phone: [facility] [facility] DO Work Phone: Start: 03-07-[address] Edinson albrecht [place] Facility: Start: 03-05-2023 End: 03-05-2023 ambulatory Nathan Hathaway Other [employer] Other Start: 03-05-2023 Telephone encounter Nathan Hathaway [facility] Start: 03-01-2023 End: 03-02-[address] NATHAN HATHAWAY Facility:[facility] Start: 02-27-2023 End: 02-27-2023 ambulatory Nathan Hathaway Other [employer] Other Start: 02-27-2023 Telephone encounter Nathan Hathaway [facility] Start: 02-20-2023 End: 02-20-2023 ambulatory Nathan Hathaway Other [employer] Other Start: 02-20-2023 Telephone encounter Nathan Hathaway [facility] Start: 02-14-2023 End: 02-14-2023 ambulatory Nathan Fransico Other [employer] Other Start: 02-14-2023 Office outpatient vi sit 25 minutes Nathan Ball [facility] Start: 02-14-2023 Telephone encounter Nathan Fransico [facility] Start: 02-11-2023 End: 02-11-2023 ambulatory Nathan Fransico Other [employer] Other Start: 02-11-2023 Telephone encounter Nathan Hathaway [facility] Start: 02-08-2023 End: 02-09-2023 Evaluation and management of inpatient DR NATHAN HATHAWAY Facility:[facility] Start: 02-02-2023 End: 02-02-2023 ambulatory Nathan Hathaway Other [employer] Other Start: 02-02-2023 Office outpatient vi sit 25 minutes Nathan Hathaway [facility] Start: 01-08-2023 End: 01-09-[address] NATHAN HATHAWAY Facility:[facility] Start: 12-21-2022 End: 12-21-2022 ambulatory Nathan Hathaway Other [employer] Other Start: 12-21-2022 Telephone encounter Nathan Hathaway [facility] Start: 12-20-2022 End: 12-20-2022 ambulatory Nathan Hathaway Other [employer] Other Start: 12-20-2022 Telephone encounter Nathan Hathaway [facility] Start: 12-14-2022 End: 12-14-2022 ambulatory Nathan Hathaway Other [employer] Other Start: 12-14-2022 Patient encounter procedure Nathan Hathaway [facility] Start: 12-04-2022 End: 12-04-2022 ambulatory Lusi Mckenzie MD Work Phone: Hematology/Oncology Comment on above: Abnormal SPEP (Prima ry Dx); Neuropathy - (NOS); Lung nodules Start: 12-04-2022 End: 12-04-2022 Patient encounter procedure Luis Mckenzie MD Work Phone: [place] Start: 11-23-2022 End: 11-23-2022 ambulatory Nathan Hathaway Other [employer] Other Start: 11-23-2022 Telephone encounter Nathan CHURCHILL [facility] Start: 11-16-2022 End: 11-17-[address] NATHAN HATHAWAY Facility:[facility] Start: 11-14-2022 End: 11-14-2022 ambulatory Nathan Hathaway Other [employer] Other Start: 11-14-2022 Office outpatient vi sit 25 minutes Nathan Hathaway [facility] Start: 09-11-2022 End: 09-12-[address] NATHAN [...] (HCC); Lung nodules Start: 05-23-2022 Telephone encounter Lusi hernandez MD Work Phone: Hematology/Oncology Comment on above: Lab Orders Start: 05-04-2022 End: 05-04-[address] NATHAN HATHAWAY Facility: Start: 12-13-2021 Adult health examination Lauri Hathaway Other [facility] Other Procedures Date Procedure Procedure Detail Performing Clinician Start: 02-12-2025 Plain chest X-ray Lauri Hathaway DO Work Phone: Start: 02-10-2025 Us soft tissue head & neck real time imge docm Reyna Esparza MD Work Phone: Start: 11-17-2024 Aspiration Nathan B all DO Work Phone: Start: 03-12-2024 Cv strs tst xers&/or rx cont ecg trcg only Holden Rosado CONFECTIONERY MAKER-PERFECT BIND MACHINE OPERATOR Work Phone: Start: 10-17-2023 History of placement of stent for coronary artery disease S/P coronary artery stent placement Holden Rosado CONFECTIONERY MAKER-PERFECT BIND MACHINE OPERATOR Work Phone: Start: 05-17-2023 CT angiography [...] Author Start: 07-08-2028 Diabetes Screening Diabetes Screening [facility] Start: 03-05-2027 Diabetes Screening Diabetes Screening [facility] Start: 11-05-2026 Diabetes Screening Diabetes Screening [facility] Start: 06-04-2026 DIABETES SCREEN DIABETES SCREEN [facility] Start: 11-27-2025 DIABETES SCREEN DIABETES SCREEN [facility] Start: 10-27-2025 End: 10-27-2025 Patient encounter procedure 10/27/2025 2:10 PM EST Office Visit [facility] [address] [place] [address] Edinson Perry DO [address] [facility] [address] [place] [address] [facility] Start: 10-07-2025 End: 10-07-2025 ambulatory 10/07/2025 3:00 PM EST Visit (SP) Office Hematology/Oncology [address] [facility] [place] [address] Valentin Leonard MD [address] [facility] [place] [address] 3 month ELDON with lab Hematology/Oncology Comment on above: 3 month ELDON with lab Start: 10-07-2025 End: 10-07-2025 Patient encounter procedure 10/07/2025 2:45 PM EST Office Visit [facility] [address] [place] [address] 3 month ELDON with lab [facility] Comment on above: 3 month ELDON with lab Start: 08-24-2025 DIABETES SCREEN DIABETES SCREEN [facility] Start: 07-21-2025 Patient referral [facility] Work Phone: Start: 07-08-2025 End: 07-08-2025 ambulatory 07/08/2025 10:00 AM EDT Visit (SP) Office Hematology/Oncology [address] [facility] [place] [address] Paolo Casillas APRN.[facility] [address] [facility] [place] [address] Dr Hathaway 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 [facility] Hematology/Oncology Comment on above: Dr Hathaway 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 [facility] Start: 07-08-2025 End: 07-08-2025 Patient encounter procedure 07/08/2025 10:00 AM EDT Office Visit [facility] [address] [place] [address] Labs Per January Staff Message [facility] Comment on above: Labs Per January Staff Message Start: 07-06-2025 End: 10-05-2025 CBC W Auto Differential panel - Blood COMPLETE BLOOD COUNT AND DIFFERENTIAL Lab Routine Abnormal SPEP Expected: 07/06/2025, Expires: 10/05/2025 [facility] Work Phone: Comment on above: Expected: 07/06/2025, Expires: Start: 07-06-2025 End: 10-05-2025 Comprehensive metabolic 2000 panel - Serum or Plasma COMPREHENSIVE METABOLIC PANEL Lab Routine Abnormal SPEP Expected: 07/06/2025, Expires: 10/05/2025 [facility] Comment on above: Expected: 07/06/2025, Expires: Start: 07-06-2025 End: 10-05-2025 MONOCLONAL PROTEIN, SERUM (BLOOD) MONOCLONAL PROTEIN, SERUM (BLOOD) Lab Routine Abnormal SPEP Expected: 07/06/2025, Expires: 10/05/2025 [facility] Comment on above: Expected: 07/06/2025, Expires: Start: 07-06-2025 End: 10-05-2025 PROTEIN ELECTROPHORESIS SERUM W/INTERP PROTEIN ELECTROPHORESIS SERUM W/INTERP Lab Routine Abnormal SPEP Expected: 07/06/2025, Expires: 10/05/2025 [facility] Comment on above: Expected: 07/06/2025, Expires: Start: 06-29-2025 Influenza [facility] Start: 05-22-2025 DIABETES SCREEN DIABETES SCREEN [facility] Start: 05-04-2025 COVID-19 Vaccine ( season) COVID-19 Vaccine () [facility] Start: 04-29-2025 End: 04-29-2025 Patient encounter procedure 04/29/2025 9:30 AM EDT Office Visit [facility] [address] [place] [address] Fercho Tse DO [address] [place] [address] [facility] Start: 03-17-2025 End: 03-17-2025 Patient encounter procedure 03/17/2025 10:45 AM EDT Appointment [place] [address] [place] [address] [facility] Start: 02-25-2025 End: 02-25-2025 Patient encounter procedure [facility] Comment on above: Arrived Start: 01-26-2025 End: 01-26-2025 Professional / ancillary services management 01/26/2025 3:00 PM EDT Ancillary Procedure [place] [address] [address] [place] [address] [facility] Start: 01-12-2025 End: 01-12-2026 Holter monitor study Holter Or Event Maintenance Person Cardiac Services Routine Palpitations Expected: 01/12/2025 (Approximate), Expires: 01/12/2026 [facility] Service Area Work Phone: Comment on above: Expected: 01/12/2025 (Approximate), Expi res: 01/12/2026 Start: 01-12-2025 End: 01-12-2027 US Heart Transthoracic Transthoracic Echo Complete Echocardiography Routine Essential hypertension Palpitations Expected: 01/12/2025 (Approximate), Expires: 01/12/2027 [facility] Work Phone: Comment on above: Expected: 01/12/2025 (Approximate), Expi res: 01/12/2027 Start: 11-25-2024 End: 11-25-2024 Patient encounter procedure 11/25/2024 2:00 PM EST Office Visit [facility] [address] [facility] [address] [place] [address] Reyna Esparza MD [address] [facility] [address] [place] [address] Arrived [facility] Comment on above: Arrived Start: 11-19-2024 Patient referral [facility] Work Phone: Start: 11-17-2024 [facility] Start: 11-17-2024 [facility] Start: 10-29-2024 Advance Directive Discussion Advance Directive Discussion [facility] Start: 10-08-2024 End: 10-08-2024 Patient encounter procedure 10/08/2024 10:40 AM EST Office Visit [address] [place] [address] Edinson Perry, [address] [facility] [address] [place] [address] [facility] Start: 06-29-2024 Covid-19 Vaccine ( season) Covid-19 Vaccine () [facility] Start: 06-29-2024 Influenza vaccination [facility] Start: 04-21-2024 End: 04-21-2025 Basic metabolic 2000 panel - Serum or Plasma Basic Metabolic Panel Lab Routine ASHD (arteriosclerotic heart disease) Expected: 04/21/2024 (Approximate), Expires: 04/21/2025 [facility] Service Area Work Phone: Comment on above: Expected: 04/21/2024 (Approximate), Expi res: 04/21/2025 Start: 04-21-2024 End: 04-21-2024 Patient encounter procedure 04/21/2024 10:30 AM EDT Office Visit [address] [place] [address] Holden Rosado, CONFECTIONERY MAKER-PERFECT BIND MACHINE OPERATOR [address] [facility] [address] [place] [address] [facility] Start: 03-12-2024 End: 03-12-2024 Patient encounter procedure 03/12/2024 10:15 AM EDT Appointment [address] [place] [id number] [facility] Start: 03-12-2024 End: 03-12-2024 Patient encounter procedure [facility] Start: 03-05-2024 End: 03-05-2025 Basic metabolic 2000 panel - Serum or Plasma Basic Metabolic Panel Lab Routine Essential hypertension Expected: 03/05/2024 (Approximate), Expires: 03/05/2025 [facility] Work Phone: Comment on above: Expected: 03/05/2024 (Approximate), Expi res: 03/05/2025 Start: 03-05-2024 End: 03-05-2026 NM Heart Perfusion W stress and W radionuclide IV Nuclear Stress Test Cardiac Nuclear Medicine Routine ASHD (arteriosclerotic heart disease) Expected: 03/05/2024 (Approximate), Expires: 03/05/2026 [facility] Service Area Work Phone: Comment on above: Expected: 03/05/2024 (Approximate), Expi res: 03/05/2026 Start: 02-09-2024 Echocardiography Echocardiogram [facility] Start: 10-29-2023 Advance Directive Discussion Advance Directive Discussion [facility] Start: 09-18-2023 FUV, Provider: Edinson Perry, Status: Pen, Time: 11:20 AM FUV, Provider: Edinson Perry, Status: Pen, Time: 11:20 AM [facility] [address] DO Work Phone: Start: 06-29-2023 COVID-19 Vaccine ( season) COVID-19 Vaccine ( season) [facility] Start: 06-29-2023 Influenza vaccination INFLUENZA (#1) [facility] Start: 05-29-2023 Adult depression screening assessment DEPRESSION SCREENING [facility] Start: 05-29-2023 FUV, Provider: Edinson Perry, Status: Nahid, Time: 10:20 AM FUV, Provider: Edinson Perry, Status: Pen, Time: 10:20 AM [facility] [address] DO Work Phone: Start: 05-18-2023 [facility] Start: 05-17-2023 Hospital admission [facility] Start: 03-09-2023 [facility] Start: 01-13-2023 COVID-19 VACCINE (6 - Pfizer series) COVID-19 VACCINE (6 - Pfizer series) [facility] Start: 11-22-2022 Adult depression screening assessment DEPRESSION SCREENING [facility] Start: 10-29-2022 ADVANCE DIRECTIVE DISCUSSION ADVANCE DIRECTIVE DISCUSSION [facility] Start: 10-29-2022 DEPRESSION ASSESSMENT DEPRESSION ASSESSMENT [facility] Start: 10-13-2022 COVID-19 Vaccine (3 - Pfizer risk series) COVID-19 Vaccine (3 - Pfizer risk series) [facility] Start: 06-29-2022 Influenza vaccination INFLUENZA (#1) [facility] Start: 03-25-2022 COVID-19 VACCINE (5 - Booster for Pfizer series) COVID-19 VACCINE (5 - Booster for Pfizer series) [facility] Start: 10-29-2021 ADVANCE DIRECTIVE DISCUSSION ADVANCE DIRECTIVE DISCUSSION [facility] Start: 10-29-2021 DEPRESSION ASSESSMENT DEPRESSION ASSESSMENT [facility] Start: 09-16-2021 Shingrix Vaccine (3 of 3) Shingrix Vaccine (3 of 3) [facility] Start: 09-16-2021 Zoster Vaccines (2 of 2) Zoster Vaccines (2 of 2) [facility] Start: 07-16-2021 SHINGRIX VACCINE (2 of 2) SHINGRIX VACCINE (2 of 2) [facility] Start: 2017 RSV High Risk: (Elderly (60+) or Population) (1 - 1-dose 75+ series) RSV High Risk: (Elderly (60+) or Population) (1 - 1-dose 75+ series) [facility] Start: 2017 RSV Vaccine (1 - 1-dose 75+ series) RSV Vaccine (1 - 1-dose 75+ series) [facility] Start: 07-17-2014 DTaP/Tdap/Td Vaccines (1 - Tdap) DTaP/Tdap/Td Vaccines (1 - Tdap) [facility] Start: 07-17-2014 Urine microalbumin profile DTaP,Tdap,Td Vaccine (1 - Tdap) [facility] Start: 2007 BONE DENSITY BONE DENSITY [facility] Start: 2007 PNEUMOCOCCAL: 65+ (1 - PCV) PNEUMOCOCCAL: 65+ (1 - PCV) [facility] Start: 2007 Screening for osteoporosis Bone Density Screening [facility] Start: 08-29-2007 Medicare Annual Wellness Visit Medicare Annual Wellness Visit [facility] Start: 2002 RSV patients and/or patients aged 60+ years (1 - 1-dose 60+ series) RSV patients and/or patients aged 60+ years (1 - 1-dose 60+ series) [facility] Start: 1964 DTaP/Tdap/Td Vaccines (1 - Tdap) DTaP/Tdap/Td Vaccines (1 - Tdap) [facility] Start: 1961 Urine microalbumin profile DTAP,TDAP,TD (1 - Tdap) [facility] Start: 1960 Anxiety Screening Anxiety Screening [facility] Start: 1960 Depression Screening Depression Screening [facility] Start: 1960 Diabetes mellitus screening Diabetes Screening [facility] Start: 1942 Creatinine measurement Creatinine Level [facility] Start: 1942 Lipid panel Lipid Panel [facility] Start: 1942 Medicare Annual Wellness Visit Medicare Annual Wellness Visit (AWV) [facility] Start: 1942 Potassium measurement Potassium Level [facility] Start: 1942 Screening for osteoporosis Bone Density Scan [facility] Comprehensive metabo lic 2000 panel - Serum or Plasma [facility] End: 06-28-2023 Ct abdomen & pelvis w/contrast material CT ABD/PEL W IVCON Radiology Routine Disorder of adrenal gland (HCC) 1 Occurrences starting 05/29/2022 until 06/28/2023 [facility] Work Phone: Comment on above: 1 Occurrences starting 05/29/2022 until 06/28/2023 End: 06-28-2023 CT CHEST W IVCON CT CHEST W IVCON Radiology Routine Lung nodules 1 Occurrences starting 05/29/2022 until 06/28/2023 [facility] Work Phone: Comment on above: 1 Occurrences starting 05/29/2022 until 06/28/2023 Patient Education [facility] Work Phone: Patient referral [facility] Work Phone: End: 03-17-2025 US Heart Transthoracic [facility] Service Area Work Phone: Comment on above: Once for 1 Occurrences starting 03/17/20 25 until 03/17/2025 XR Knee - right 4 Views [facility] Immunizations Immunization Date Immunization Notes Care Provider Fa cility 07-16-2024 influenza, high dose seasonal, preservative-free [facility] 07-16-2024 influenza virus vaccine, unspecified formulation Paolo Casillas APRN.CNP Work Phone: [facility] 08-06-2023 influenza virus vaccine, unspecified formulation [facility] 08-06-2023 influenza, high dose seasonal, preservative-free Nathan Hathaway Other [facility] Other 09-15-2022 COVID-19 Pfizer (Pediatric) Nathan Hathaway Other [facility] 09-15-2022 Pfizer COVID-19 Vac Bivalent 30 MCG/0.3ML Intramuscular Suspension Nathan Hathaway Work Phone: [facility] 08-11-2022 influenza virus vaccine, split virus (incl. purified surface antigen) Nathan Hathaway Other [facility] Other 08-11-2022 influenza virus vaccine, unspecified formulation [facility] 01-28-2022 COVID-19 mRNA, Comirnaty (Pfizer) DO Nathan Hathaway Work Phone: [facility] 01-28-2022 COVID-19 Pfizer Nathan michelle Other [facility] 07-30-2021 COVID-19 vaccine, ag e 12+ yr ([employer]uling[employer] - PURPLE TOP) Luis Mckenzie MD Work Phone: [facility] 07-22-2021 zoster vaccine, live Suly Hathaway Other [facility] 07-19-2021 influenza, high-dose , quadrivalent vaccine (FLUZONE HIGH DOSE QUADRIVALENT) Luis Mckenzie MD Work Phone: [facility] 07-18-2021 influenza virus vaccine, split virus (incl. purified surface antigen) Nathan Hathaway Other [facility] Other 07-18-2021 influenza virus vaccine, unspecified formulation [facility] 05-21-2021 zoster vaccine recombinant Luis Mckenzie MD Work Phone: [facility] 05-21-2021 zoster vaccine, live Benjami n Fransico Other [facility] 12-18-2020 COVID-19 vaccine, ag e 12+ yr (PFIZER-BIONTECH - PURPLE TOP) Luis Mckenzie MD Work Phone: [facility] 11-27-2020 COVID-19 Vaccine Moderna - Documentation Purposes Only Nathan Hathaway Other [facility] 11-27-2020 COVID-19 vaccine, ag e 12+ yr (PFIZER-BIONTECH - PURPLE TOP) Luis Mckenzie MD Work Phone: [facility] 08-11-2020 influenza virus vaccine, split virus (incl. purified surface antigen) Nathan Hathaway Other [facility] Other 08-11-2020 influenza virus vaccine, unspecified formulation [facility] 07-09-2019 AS03 adjuvant Arrival Radiol ogy Work Phone: [facility] 07-09-2019 Seasonal trivalent influenza vaccine, adjuvanted, preservative free Luis Mckenzie MD Work Phone: [facility] 08-13-2018 AS03 adjuvant Arrival Radiol ogy Work Phone: [facility] 08-13-2018 influenza virus vaccine, split virus (incl. purified surface antigen) Nathan Hathaway Other [facility] Other 08-13-2018 influenza virus vaccine, unspecified formulation [facility] 08-13-2018 Seasonal trivalent influenza vaccine, adjuvanted, preservative free Luis Mckenzie MD Work Phone: [facility] 08-03-2017 influenza virus vaccine, split virus (incl. purified surface antigen) Nathan Hathaway Other [facility] [employer] Other 08-03-2017 influenza virus vaccine, unspecified formulation [facility] 08-03-2017 influenza, high dose seasonal, preservative-free Luis Mckenzie MD Work Phone: [facility] 07-13-2016 influenza virus vaccine, split virus (incl. purified surface antigen) Nathan Hathaway Other [facility] Other 07-13-2016 influenza virus vaccine, unspecified formulation [facility] 09-13-2015 pneumococcal conjuga te vaccine, 13 valent Nathan Hathaway Other [facility] 08-17-2015 influenza virus vaccine, split virus (incl. purified surface antigen) Nathan Hathaway Other [facility] Other 08-17-2015 influenza virus vaccine, unspecified formulation [facility] 07-16-2014 tetanus and diphther ia toxoids, adsorbed, preservative free, for adult use (5 Lf of tetanus toxoid and 2 Lf of diphtheria toxoid) Nathan Hathaway Other [facility] 07-09-2013 tetanus and diphther ia toxoids, adsorbed, preservative free, for adult use (5 Lf of tetanus toxoid and 2 Lf of diphtheria toxoid) Nathan Hathaway Other [facility] 08-11-2010 pneumococcal polysaccharide vaccine, 23 valent Nathan Hathaway Other [facility] Payers Date Payer Category Payer Medicare supplementa l policy (as second payer) A[employer] [id number] 2022 Unknown 2020 Private Health Insurance [facility] AAR SUPPLEMENT [id number] 2020-Present [phone] [address] [place] [address] Indemnity [id number] 2020 Private Health Insurance [id number] 2007 Medicare MEDICARE MEDICAR E A AND B [id number] 2007-Present [phone] [place] [address] Medicare [id number] 2007 Medicare [id number] 1959 Medicare [id number] 1959 Unknown [id number] [id number] 1942 Unknown [id number] 2.16.840.1.586172.3.579. 2.593 1942 Unknown [id number] 2.16.840.1.864223.3.579. 2.593 1942 Unknown [id number] 2.16.840.1.681025.3.579. 2.593 1942 Unknown [id number] 2.16.840.1.573189.3.579. 2.593 1942 Unknown [id number] 2.16.840.1.077519.3.579. 2.593 1942 Unknown [id number] 2.16.840.1.481371.3.579. 2.593 1942 Unknown [id number] 2.16.840.1.147623.3.579. 2.593 1942 Unknown [id number] 2.16.840.1.894469.3.579. 2.356 1942 Unknown [id number] 2.16.840.1.768654.3.579. 2.356 1942 Unknown [id number] 2.16.840.1.026294.3.579. 2.1259 1942 Unknown [id number] 2.16.840.1.528752.3.579. 2.1259 1942 Unknown [id number] 2.16.840.1.290659.3.579. 2.1259 1942 Unknown [id number] 2.16.840.1.784121.3.579. 2.1244 1942 Unknown [id number] 2.16.840.1.104719.3.579. 2.1244 1942 Unknown [id number] 2.16.840.1.116120.3.579. 2.1244 1942 Unknown [id number] 2.16.840.1.586789.3.579. 2.1244 1942 Unknown [id number] 2.16.840.1.978508.3.579. 2.1246 Medicare Medicare Outpatient [id number] Unknown [id number] Social History Date Type Detail Facility Start: 08-01-2021 End: 03-05-2024 Tobacco smoking status [facility] Ex-smoker [facility] End: 10-29-1992 History of tobacco use Cigarette Smoker [facility] Start: 08-01-2021 End: 03-05-2024 Tobacco use and exposure Smokeless tobacco non-user [facility] Start: 1940 Sex Assigned At Not on file C [facility] Start: 05-12-2022 End: 03-17-2025 Exposure to SARS-CoV-2 (event) Not sure [facility] End: 10-29-1992 History of tobacco use Current smoker [facility] Start: 12-04-2022 End: 06-04-2023 Sex Assigned At [facility] Start: 12-04-2022 End: 06-04-2023 No illicit drug use No illicit drug use [facility] Comment on above: 2 coffees in am and 1 coffee at hs; 1997; Start: 1940 Sex Assigned At Female F [facility] Start: 06-04-2023 End: 07-08-2025 Alcohol intake Ex-drinker (finding) [facility] Start: 09-29-2012 Adult Depression Screening Assessment 0 [facility] Start: 12-18-2023 End: 02-12-2025 Tobacco smoking status NHIS Never smoked tobacco (finding) [facility] Start: 03-05-2024 End: 01-12-2025 Alcoholic beverage intake Lifetime non-drinker (finding) [facility] Work Phone: Start: 09-11-2024 End: 03-19-2025 Sex Female (finding) [facility] Medical Equipment Procedure Code Equipment Code [...] Facility 05-18-2023 Functional status Patient at Baseline [facility] Work Phone: 03-09-2023 Functional status Patient at Baseline [facility] Work Phone: Mental Status Date Assessment Result Facility 05-18-2023 Cognitive function Cognitive Sta tus Patient at Baseline [facility] Work Phone: 03-09-2023 Cognitive function Cognitive Sta tus Patient at Baseline [facility] Work Phone: Clinical Notes 05-29-2022 to 07-10-2025 Telephone Encounter - Yolanda Cobian RN - 07/10/2025 2:11 PM EDTTelephone Encounter - Yolanda Cobian RN - 07/10/2025 2:11 PM EDTTelephone Encounter - Cat Landeros S - 07/10/2025 11:37 AM EDT Note Date & Type Note Facility 07-10-2025 Telephone encounter Note Refer to providers phone encounter for details of follow up/intervention Yolanda Cobian RN [facility] 07-10-2025 Miscellaneous Notes Refer to providers phone encounter for details of follow up/intervention Yolanda Cobian RN Labs still pending. Yolanda Cobian RN Please call Her daughter Marianna with today's lab results. [phone] documented in this encounter [facility] 07-10-2025 Telephone encounter Note Called Dr Hathaway's office and spoke with Dayana. I informed her of Mrs Joaquin worsening anemia/renal function and elevated blood proteins (refer to note per Kg Petit PA-C from today). She appreciated the update and will discuss with Dr Hathaway. Yolanda Cobian RN [facility] 07-10-[address] Hathaway's [...] Hathaway's office Please return the call at [phone] KERRY Menendez documented in this encounter [facility] 07-10-[address] Nathan Hathaway's office is calling today regarding Asking the question why labs were repeated on 07/08/2025 when she just had labs drawn on 06/23/2025. Please call Dr Hathaway's office back. Patient has been identified by name and birthdate. Person calling: Dr Nathan Hathaway's office Please return the call at [phone] KERRY Menendez [facility] 07-10-2025 Telephone encounter Note Labs still pending. Yolanda Cobian RN [facility] 07-08-2025 Telephone encounter Note Please call Her daughter Marianna with today's lab results. [phone] [facility] 07-07-2025 Note HNO ID: [id number] Author: PAOLO CASILLAS APRN.PERFECT BIND MACHINE OPERATOR Service: ? Author Type: Nurse Practitioner Type: [...] Vaping Use Vap (more content not included)... [facility] 07-07-2025 History of Presen t illness Narrative [...] 06/23/2025. (Scanned) IgM elevated, M-protein 0.2, and [place]/Lambda ration 10.59. Will repeat labs today. Hemoglobin [...] breath and was hospitalized at [facility] and treated for suspected pneumonia. Apparently it was later felt she had heart disease, and cardiac catheterization revealed severe coronary artery disease. She subsequently underwent stent placement at [facility]. April 2023 she developed severe shortness of breath and was hospitalized at [facility] 05/17/2023 with CHF. She improved with diuresis [...] which included preparing to see the patient, [id number] patient care, completing clinical documentation, obtaining and/or reviewing separately obtained history, performing a medically appropriate examination, counseling and educating the patient/family/caregiver, ordering medications, tests, or procedures, independently interpreting results (not separately reported), and communicating results to the patient/family/caregiver. documented in this encounter [facility] 07-06-2025 Telephone encounter Note Patient coming Sunday07/08/25 for follow up labs. Please add lab orders. Thanks. Loree Rosado MA [facility] 05-19-2025 Evaluation note Diagnosis Onset Date Resolution Acute bronchitis due to other specified organisms noneactive April 292024 3:17pm Acute exacerbation of chronic obstructive airways disease noneactive May 19, 2025 3:17pm ASHD (arteriosclerotic heart disease) acute June 19 9:23am Chronic bronchitis acute June 19, 2025 9:23am Chronic kidney disease acute [facility] 2024 9:23am Chronic venous insufficiency acute June 19 9:23am Essential hypertension acute [facility] 2024 9:23am OMAR (generalized anxiety disorder) [...] visit, subsequent noneactive June 19, 025 9:23am [facility] Work Phone: 1(879) 476-467607-22-2025 Evaluation note* Diagnosis Onset Date Resolution Status Admit Date Acute bronchitis due to othe r specified organisms noneactive May 19, 025 3:17pm Acute exacerbation of chroni c obstructive airways disease noneactive May 19, 2025 3:17pm Anemia acute June 19, 025 9:23am ASHD (arteriosclerotic heart disease) acute June 19 9:23am Chronic bronchitis acute June 19, 2025 9:23am Chronic kidney disease acute [facility] 2024 9:23am Chronic venous insufficiency acute June 19, 2025 9:23am Essential hypertension acute [facility] 2024 9:23am OMAR (generalized anxiety disorder) [...] Essential hypertension acute Se ptember 2024 3:32pm MOAR (generalized anxiety disorder) acute July 21, 2025 3:32pm 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 July 21, 2025 3:32pm Obesity acute June 3:32pm Screening mammogram for [facility] cancer acute July 21, 2025 3:32pm Subclinical hypothyroidism acute July 21, 2025 3:32pm Acute on chronic heart failu re with preserved ejection fraction (HFpEF) noneactive July 21, 2025 3:32pm [facility] Work Phone: 1(820) 580-410407-22-2025 Evaluation note* Diagnosis Onset Date Resolution Status [...] fraction (HFpEF) noneactive July 21, 2025 3:32pm [facility] Work Phone: 1(232) 441-973405-16-2025 Evaluation note* Diagnosis Onset Date Resolution Status [...] fraction (HFpEF) noneactive March 19, 2025 11:21am [facility] Work Phone: [phone] 977-594904-15-2025 History of Present illness Narrative* Reyna Esaprza MD - 02/25/2025 9:00 AM EDT Subjective Patient ID: Lashaun Joaquin is a 84 y.o. female who presents for Thyroid Nodule (Follow ultrasound [facility] 02/10/25) US shows an 11mm nodule that is unchanged and mult subcentimeter nodules. No family history on file. Active Ambulatory Problems Diagnosis Date Noted Dry eyes 04/28/2024 Epiretinal membrane (ERM) of left eye 04/28/2024 Blepharitis of upper and lower eyelids of both eyes 04/28/2024 Abnormal cardiovascular stress test 11/24/2024 Adrenal nodule ([facility]/HCC) 11/24/2024 Anemia 11/24/2024 ASHD (arteriosclerotic heart disease) ([facility]) 10/17/2023 Atrophic vaginitis 11/24/2024 BMI 33.0-33.9,adult 03/05/2024 Cervical spondylosis with radiculopathy 11/24/2024 Chronic bronchitis (CMS/HCC) 11/24/2024 Chronic heart failure with preserved ejection fraction (HFpEF) ([facility]) 11/24/2024 Chronic obstructive pulmonary disease with (acute) exacerbation ([facility]) 11/24/2024 Chronic venous insufficiency 11/24/2024 COVID 10/17/2023 Elevated serum immunoglobulin free light chain level 11/24/2024 Essential hypertension (CMS/HCC) 10/17/2023 Flash pulmonary edema ([facility]/HCC) 11/24/2024 Former smoker 10/17/2023 OMAR (generalized anxiety disorder) ([facility]/HCC) 11/24/2024 Gastroesophageal reflux disease with esophagitis without [...] annually if stable documented in this encounterSaint [facility] [id number] Miscellaneous Notes* Telephone Encounter - Loree Rosado MA - 07/06/2025 9:31 AM EDT Patient coming Sunday07/08/25 for follow up labs. Please add lab orders. Thanks. Loree Rosado MA documented in this encounter[facility] Evaluation note* Diagnosis Onset Date Resolution Status Admit Date Chronic kidney disease acute [facility] 2024 9:51am Nocturnal leg cramps acute [facility] [...] 2025 1 1:21am Chronic kidney disease acute [facility] 2024 11:21am Chronic venous insufficiency acute March 19, 2025 11:21am Essential hypertension acute [facility] 2024 11:21am Subclinical hypothyroidism acute March 19, 2025 11:21am Thyroid nodule acute March 19, 2025 11:21am [facility] Work Phone: 1(880) 109-494103-17-2025 Evaluation + Plan note* Assessment & Plan Note - CINTIA Gallego - 01/12/2025 3:48 PM EDTAssociated Problem(s): Cardiac and Vasculature January 2024 TTE LVEF greater than 55% Biatrial enlargement mild [facility] Work Phone: [phone]) 106-516403-17-2025 Miscellaneous Notes* Assessment & Plan Note - [...] heart disease) March 09, 2023 Mid/proximal RCA PCI/[place] 4x15mm & 4x18mm Proximal diagonal PCI/[place] 2.5 x 18 mm LAD 10% Circumflex [...] hypertension [facility]imal in office documented in this [facility] Work Phone: [phone]) 634-486603-17-2025 Evaluation + Plan note* Assessment & Plan Note - CINTIA Gallego - 01/12/2025 3:47 PM EDTAssociated Problem(s): Hyperlipidemia High intensity statin January 2024 HDL 42, cholesterol 158 [facility] Work Phone: [phone]) 523-435703-17-2025 Evaluation + Plan note* Assessment & Plan Note - CINTIA Gallego - 01/12/2025 3:47 PM EDTAssociated Problem(s): ASHD (arteriosclerotic heart disease) March 09, 2023 Mid/proximal RCA PCI/[place] 4x15mm & 4x18mm Proximal diagonal PCI/[place] 2.5 x 18 mm LAD 10% Circumflex normal LVEF 65% February 2024 MPI ischemia, EF 88% Current daily activity at 4 METS without concerning symptoms [facility] Work Phone: [phone] 451-911703-17-2025 Evaluation + Plan note* Assessment & Plan Note - CINTIA Gallego - 01/12/2025 3:46 PM EDTAssociated Problem(s): Palpitations Reports fairly daily episodes of hearing my heart thumping going into my ears No prior documented A-fib or arrhythmia. Was taken off of carvedilol January 2024 hospitalization due to bradycardia [facility] Work Phone: [phone]) 549-455803-17-2025 Evaluation + Plan note* Assessment & Plan Note - CINTIA Gallego - 01/12/2025 3:46 PM EDTAssociated Problem(s): Essential hypertension [employer]imal in office [facility] Work Phone: [phone] 711-476403-17-2025 History of Present illness Narrative* CINTIA Gallego [...] heart disease) March 09, 2023 Mid/proximal RCA PCI/[place] 4x15mm & 4x18mm Proximal diagonal PCI/[place] 2.5 x 18 mm LAD 10% Circumflex [...] Echo (RODGERS, diastolic dysfunction) Holden Rosado MSN, CONFECTIONERY MAKER-PERFECT BIND MACHINE OPERATOR, PMHNP-BC [facility] [place], [place] Please excuse any errors in grammar or translation related to this dictation. Voice recognition software was utilized to prepare this document. documented in this encounterOhioHealth [facility] Work Phone: [phone]) 955-951903-17-2025 Instructions* Patient Instructions* CINTIA Gallego - 01/12/2025 [...] Echo (RODGERS, diastolic dysfunction) documented in this encounterOhioHealth [facility] Work Phone: [phone] 389-836501-28-2025 History of Present illness Narrative* Reyna Esparza MD - 11/25/2024 2:00 PM EST Subjective Patient ID: Lashaun Joaquin is a 84 y.o. female who presents for Thyroid Nodule Pt reports she had a thyroid US after being found to be mildly hypothyroid. US shows an 11mm mixed thyroid nodule. FNA performed that was [place] 1. No family H/O thyroid CA. No radiation exposure. Review of Systems All other systems reviewed and are negative. No family history on file. Active Ambulatory Problems Diagnosis Date Noted Dry eyes 04/28/2024 Epiretinal membrane (ERM) of left eye 04/28/2024 Blepharitis of upper and lower eyelids of both eyes 04/28/2024 Abnormal cardiovascular stress test 11/24/2024 Adrenal nodule ([facility]) 11/24/2024 Anemia 11/24/2024 ASHD (arteriosclerotic heart disease) ([facility]) 10/17/2023 Atrophic vaginitis 11/24/2024 BMI 33.0-33.9,adult 03/05/2024 Cervical spondylosis with radiculopathy 11/24/2024 Chronic bronchitis ([facility]) 11/24/2024 Chronic heart failure with preserved ejection fraction (HFpEF) ([facility]) 11/24/2024 Chronic obstructive pulmonary disease with (acute) exacerbation ([facility]) 11/24/2024 Chronic venous insufficiency 11/24/2024 COVID 10/17/2023 Elevated serum immunoglobulin free light chain level 11/24/2024 Essential hypertension ([facility]) 10/17/2023 Flash pulmonary edema ([facility]) 11/24/2024 Former smoker 10/17/2023 OMAR (generalized anxiety disorder) ([facility]) 11/24/2024 Gastroesophageal reflux disease with esophagitis without hemorrhage 11/24/2024 Heart failure ([facility]) 11/24/2024 Resolved Ambulatory Problems Diagnosis Date Noted No Resolved Ambulatory Problems Past Medical History: Diagnosis Date Arthritis Cataract Congestive heart failure (CHF) ([facility]) Coronary artery disease ([facility]) GERD (gastroesophageal reflux disease) Hypercholesteremia ([facility]) Hypertension ([facility]) Peripheral neuropathy Past Surgical History: Procedure Laterality [...] in late December documented in this encounterSaint Joseph Hospital of [id number] Chief complaint+Reason for visit Narrative* Chief Complaint [...] 10:20am Thyroid nodule December 16, 2024 10:20am [facility] Work Phone: [phone] 368-257501-20-2025 Chief complaint+Reason for visit Narrative * Chief [...] knee pain January 22, 2025 9:5 1am [facility] Work Phone: [phone]) 382-658601-20-2025 Evaluation note* Diagnosis Onset Date Resolution Status [...] 10:20am Thyroid nodule acute November 292024 10:20am [facility] Work Phone: [phone] Evaluation note* Diagnosis Onset Date Resolution Status [...] 292024 10:20am Chronic kidney disease acute [facility] 2024 9:51am Nocturnal leg cramps acute [facility] 2024 9:51am Right knee pain acute December 9:51am [facility] Work Phone: [phone] 128-636712-11-2024 History of Present illness Narrative* Edinson Perry, [...] diastolic heart failure. She was hospitalized at [place] we were not involved in this. Her [...] exam, discussion and plan. documented in this encounterOhioHealth [facility] Work Phone: [phone] 115-234212-11-2024 Instructions* Patient Instructions* Racquel Olivera LPN - [...] Provided instructions on exercise. documented in this encounterOhioHealth [facility]ide [facility] Work Phone: [phone]) 126-817011-14-2024 Evaluation note* Diagnosis Onset Date Resolution Status [...] Subclinical hypothyroidism acute September 11, 2024 10:16am [facility] Work Phone: [phone] 161-735311-14-2024 Evaluation note* Diagnosis Onset Date Resolution Status [...] 10:16am Thyroid nodule acute November 172024 9:45am [facility] Work Phone: [phone] Evaluation + Plan note* Assessment & Plan Note - CINTIA Gallego - 04/22/2024 11:58 AM EDTAssociated Problem(s): BMI 32.0-32.9,adult Reviewed the merits of healthy lifestyle choices on overall cardiovascular health. [facility] Work Phone: [phone] 180-373106-25-2024 Evaluation + Plan note* Assessment & Plan Note - CINTIA Gallego - 04/22/2024 11:58 AM EDTAssociated Problem(s): Hyperlipidemia High intensity statin January 2024 HDL 42, cholesterol 158 [facility] Work Phone: [phone] 174-780506-25-2024 Evaluation + Plan note* Assessment & Plan Note - CINTIA Gallego - 04/22/2024 11:58 AM EDTAssociated Problem(s): Essential hypertension Optimal in the office [facility] Work Phone: [phone] Evaluation + Plan note* Assessment & Plan Note - CINTIA Gallego - 04/22/2024 11:58 AM EDTAssociated Problem(s): ASHD (arteriosclerotic heart disease) March 09, 2023 Mid/proximal RCA PCI/[place] 4x15mm & 4x18mm Proximal diagonal PCI/[place] 2.5 x 18 mm LAD 10% Circumflex normal LVEF 65% February 2024 MPI ischemia, EF 88% Current daily activity at 4 METS without concerning symptoms [facility] Work Phone: [phone] Miscellaneous Notes* Assessment & Plan Note - [...] METS without concerning symptoms documented in this [facility] Work Phone: [phone] 174-407306-24-2024 History of Present illness Narrative* CINTIA Gallego [...] heart disease) March 09, 2023 Mid/proximal RCA PCI/[place] 4x15mm & 4x18mm Proximal diagonal PCI/[place] 2.5 x 18 mm LAD 10% Circumflex [...] Dr. Perry 6 months Holden Rosado MSN, CONFECTIONERY MAKER-PERFECT BIND MACHINE OPERATOR, PMHNP-[facility] Please excuse any errors in grammar or translation related to this dictation. Voice recognition software was utilized to prepare this document. documented in this [facility] Work Phone: [phone]) 321-520606-24-2024 Instructions* Patient Instructions* CINTIA Gallego - 04/21/2024 [...] Dr. Perry 6 months documented in this encounterOhioHealth [facility] Work Phone: [phone]) 787-983905-09-2024 Evaluation + Plan note* Assessment & Plan Note - CINTIA Gallego - 03/06/2024 10:42 AM EDTAssociated Problem(s): BMI 32.0-32.9,adult Reviewed the merits of healthy lifestyle choices on overall cardiovascular health. [facility] Work Phone: [phone]) 858-593505-09-2024 Evaluation + Plan note* Assessment & Plan Note - CINTIA Gallego - 03/06/2024 10:42 AM EDTAssociated Problem(s): Hyperlipidemia High intensity statin January 2024 HDL 42, cholesterol 158 [facility] Work Phone: [phone] 262-657405-09-2024 Miscellaneous Notes* Assessment & Plan Note - [...] Circumflex normal LVEF 65% documented in this [facility] Work Phone: [phone]) 228-412405-09-2024 Evaluation + Plan note* Assessment & Plan Note - CINTIA Gallego - 03/06/2024 10:41 AM EDTAssociated Problem(s): Essential hypertension Optimal in office [facility] Work Phone: [phone]) 587-594805-09-2024 Evaluation + Plan note* Assessment & Plan Note - CINTIA Gallego - 03/06/2024 10:41 AM EDTAssociated Problem(s): ASHD (arteriosclerotic heart disease) March 09, 2023 Mid/proximal RCA PCI/[place] 4x15mm & 4x18mm Proximal diagonal PCI/[place] 2.5 x 18 mm LAD 10% Circumflex normal LVEF 65% [facility] Work Phone: [phone] 122-230205-08-2024 History of Present illness Narrative* CINTIA Gallego - 03/05/2024 11:30 AM EDT Chief Complaint I am just not feeling good Reason for Visit Patient presents to the office today for outpatient follow-up for hospital follow-up. Last evaluated in clinic by Dr. Perry September 2023. January 2024: Hospitalized at [facility] due to accelerated hypertension and bradycardia. [...] contact the office if new symptoms arise. TROUBLE DISPATCHER after testing Holden Rosado MSN, CONFECTIONERY MAKER-PERFECT BIND MACHINE OPERATOR, PMHNP-[facility] Please excuse any errors in grammar or translation related to this dictation. Voice recognition software was utilized to prepare this document. documented in this [facility] Work Phone: [phone]) 464-246105-08-2024 Instructions* Patient Instructions* CINTIA Gallego - 03/05/2024 [...] contact the office if new symptoms arise. TROUBLE DISPATCHER after testing documented in this encounterOhioHealth [facility] Work Phone: [phone] 124-342301-30-2024 Evaluation note* Encounter Date Diagnosis Assessment Notes Treatment Notes Treatment Clinical Notes Oct, Primary insomnia (ICD-10 - F51.01) [facility] Other 01-05-2024 Evaluation note* Encounter Date Diagnosis [...] in remission (ICD-10 - F17.211) Continue abstinence [facility] Other 12-05-2023 Evaluation note* Encounter Date Diagnosis [...] and feet daily for blisters and ulcerations. [facility] Other 11-29-2023 Evaluation note* Encounter Date Diagnosis Assessment Notes Treatment Notes Treatment Clinical Notes Aug, Chronic venous insufficiency (ICD-10 - I87.2) [facility] Other 11-24-2023 Evaluation note* Encounter Date Diagnosis Assessment Notes Treatment Notes Treatment Clinical Notes Aug, Subacute cough (ICD-10 - R05.2) Aug, Dyspnea on exertion (ICD-10 - R06.09) [facility] Other 11-20-2023 Evaluation note* Encounter Date Diagnosis Assessment Notes Treatment Notes Treatment Clinical Notes Aug, Chronic venous insufficiency (ICD-10 - I87.2) [facility] Other 11-16-2023 Evaluation note* Encounter Date Diagnosis Assessment Notes Treatment Notes Treatment Clinical Notes Aug, Chronic venous insufficiency (ICD-10 - I87.2) [facility] Other 11-14-2023 Evaluation note* Encounter Date Diagnosis [...] using EDEL as needed to mobilize secretions. [facility] Other 10-19-2023 Evaluation note* Encounter Date Diagnosis Assessment Notes Treatment Notes Treatment Clinical Notes Jul, Aphthous ulcer (ICD-10 - K12.0) [facility] Other 09-20-2023 Evaluation note* Encounter Date Diagnosis Assessment Notes Treatment Notes Treatment Clinical Notes Jun, Dysuria (ICD-10 - R30.0) [facility] Other 09-19-2023 Evaluation note* Encounter Date Diagnosis Assessment Notes Treatment Notes Treatment Clinical Notes Jun, Dysuria (ICD-10 - R30.0) [facility] Other 08-28-2023 Evaluation note* Encounter Date Diagnosis Assessment Notes Treatment Notes Treatment Clinical Notes May, Chronic venous insufficiency (ICD-10 - I87.2) [facility] Other 08-24-2023 Evaluation note* Encounter Date Diagnosis Assessment Notes Treatment Notes Treatment Clinical Notes May, Primary insomnia (ICD-10 - F51.01) [facility] Other 08-21-2023 Evaluation note* Encounter Date Diagnosis Assessment Notes Treatment Notes Treatment Clinical Notes May, Diastolic hypertension (ICD-10 - I10) [facility] Other 08-18-2023 Evaluation note* Encounter Date Diagnosis Assessment Notes Treatment Notes Treatment Clinical Notes May, Primary hypertension (ICD-10 - I10) [facility] Other 08-18-2023 Evaluation note* Encounter Date Diagnosis Assessment Notes Treatment Notes Treatment Clinical Notes May, Diastolic hypertension (ICD-10 - I10) [facility] Other 08-11-2023 Evaluation note* Encounter Date Diagnosis [...] and feet daily for blisters and ulcerations. [facility] Other 08-09-2023 Miscellaneous Notes* Telephone Encounter - [...] can further discuss then. documented in this encounterBl[facility] History of Present illness Narrative* Luis [...] breath and was hospitalized at [facility] and treated for suspected pneumonia. Apparently it was later felt she had heart disease, and cardiac catheterization revealed severe coronary artery disease. She dumont bsequently underwent stent placement at [facility]. Apparently her shortness of [...] breath [facility]. Apparently it was later felt she had heart disease, and cardiac catheterization revealed severe coronary artery disease. She subsequently underwent stent placement at [facility]. April 2023 she developed severe shortness of breath and was hospitalized at [facility] 05/17/2023with CHF. She improved [...] MD CC: Dr. Perry documented in this encounterBlanch[facility] Evaluation note* Encounter Date Diagnosis Assessment [...] dependence, cigarettes, in remission (ICD-10 - F17.211) [facility] Other 07-21-2023 Discharge summary Author Lj Ryan [facility] May 18, 2023 11:44am Note Date/Time May 18, 2023 11:4 4am [facility] EN[facility] [address] [place] [address] Discharge Summary Signed Patient: Lashaun Joaquin MR#: [id number] : 1940 Acct:[id number] Age/Sex: 82 / F Adm Date: 3 Loc: Room: [address] [place] [address]: Lj Ryan DO Copies to: [...] % (Auto) 73.6, Lymph % (Auto) 15.1, Pierce % (Auto) 8.7, Eos % (Auto) 1.9, Baso % (Auto) 0.7, Nucleat RBC Rel Count 0.1, Neut # (Auto) 4.4, Lymph # (Auto) 0.9 L, Pierce # (Auto) 0.5, Eos # (Auto) 0.1, [...] signed by Lj Ryan DO> 05/18/23 1144 [facility] Work Phone: 1([phone]) 161-344007-20-2023 History and physical note Author Lj Ryan [facility] May 17, 2023 3:56pm Note Date/Time May 17, 2023 3:49 pm [facility] EN[facility] [address] [place] [address] Hospitalist H&P Signed Patient: Lashaun Joaquin MR#: [id number] : 1940 Acct:[id number] Age/Sex: 82 / F Adm Date: 3 Loc: Room: [address] [place] [address] Type: ADM INOo Attending Dr: Lj Ryan [...] negative unless noted below or in HPI [facility] Medical History (Updated 05/17/23 @ 15:50 by [...] % (Auto) 9.3 % (.) 05/17/23 10:25 Pierce % (Auto) 5.5 % (.) 05/17/23 10:25 Eos % (Auto) 0.5 % (.) 05/17/23 10:25 Baso % (Auto) 0.5 % (.) 05/17/23 10:25 Nucleat RBC Rel Count 0.0 /100 WBC (0-0.5) 05/17/23 10:25 Neut # (Auto) 8.6 x10E3/uL (1.8-7.7) H 05/17/23 10:25 Lymph # (Auto) 1.0 x10E3/uL (1.00-4.8) 05/17/23 10:25 Pierce # (Auto) 0.6 x10E3/uL (0.0-0.8) 05/17/23 10:25 [...] <Electronically signed by Lj Ryan DO> 05/17/23 [address] [facility] Work Phone: 1(843) 543-640907-19-2023 Evaluation note* Encounter Date Diagnosis Assessment Notes [...] [BMI ] 33.0-33.9, adult (ICD-10 - Z68.33) [facility] Other 07-12-2023 Evaluation note* Encounter Date Diagnosis [...] dependence, cigarettes, in remission (ICD-10 - F17.211) [facility] Other 06-29-2023 Evaluation note* Encounter Date Diagnosis Assessment Notes Treatment Notes Treatment Clinical Notes Mar, Paronychia of finger of right hand (ICD-10 - L03.011) [facility] Other 06-29-2023 Evaluation note* Encounter Date Diagnosis [...] healthy diet. Mar, Paresthesias (ICD-10 - R20.2) [facility] Other 06-21-2023 Evaluation note* Encounter Date Diagnosis [...] post PCI/stent placement. Continue for 12 months [facility] Other 06-21-2023 Evaluation note* Encounter Date Diagnosis Assessment Notes Treatment Notes Treatment Clinical Notes Mar, Chronic bronchitis, simple (ICD-10 - J41.0) [facility] Other 05-30-2023 Evaluation note* Encounter Date Diagnosis Assessment Notes Treatment Notes Treatment Clinical Notes February, Paresthesias (ICD-10 - R20.2) [facility] Other 05-18-2023 Evaluation note* Encounter Date Diagnosis [...] Titrate Gabapentin and monitor for fluid retention [facility] Other 05-08-2023 Evaluation note* Encounter Date Diagnosis Assessment Notes Treatment Notes Treatment Clinical Notes February, Primary hypertension (ICD-10 - I10) February, Chronic venous insufficiency (ICD-10 - I87.2) [facility] Other 04-19-2023 Evaluation note* Encounter Date Diagnosis [...] pain, change in appetite or bowel habits [facility] Other 04-16-2023 Evaluation note* Encounter Date Diagnosis [...] chronic diastolic heart failure (ICD-10 - I50.33) [facility] Other 04-07-2023 Evaluation note* Encounter Date Diagnosis [...] Diet and exercise with continued statin therapy. [facility] Other 02-23-2023 Evaluation note* Encounter Date Diagnosis Assessment Notes Treatment Notes Treatment Clinical Notes Nov, Primary insomnia (ICD-10 - F51.01) [facility] Other 02-16-2023 Evaluation note* Encounter Date Diagnosis [...] mammogram for breast cancer (ICD-10 - Z12.31) [facility] Other 02-06-2023 History of Present illness Narrative* [...] PCP. Luis Mckenzie [facility]* Encounter Date Diagnosis Assessment [...] or drinking prior to bedtime. Weight loss. [facility] Other 11-01-2022 Miscellaneous Notes* Telephone Encounter - [...] in November MARBIN Freeman [facility] History of Present illness Narrative* Nancy [...] 28, 2022 12:49 PM documented in [facility] History of Present illness Narrative* Luis [...] PCP. Luis Mckenzie MD [facility] Narrative - Reported * LASHAUN JOAQUIN is being seen for a consultation for abnormal test(s) results. * 82-year-old female seen in cardiology consultation at the request of Dr. Natalio hathaway for recent episode of respiratory distress, what sounds like congestive heart failure associated with accelerated hypertension, was admitted to [place] briefly, diuresed approximately 14 pounds with diuretics. [...] and proceed with heart cath this Sunday -[facility] [address] DO Work Phone: Evaluation note* Diagnosis Abnormal SPEP- Primary Other nonspecific findings on examination of blood Neuropathy - (NOS) 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 Lung nodules Other nonspecific abnormal finding of lung field documented in this encounter [facility] note* Diagnosis Abnormal SPEP- Primary Other nonspecific findings on examination of blood Neuropathy - (NOS) Lung nodules Other nonspecific abnormal finding of lung field documented [facility] noteNo InformationNortDNage Other Evaluation noteNo assessment information available [facility] Work Phone: evaluation note* Diagnosis Onset Date Resolution Status Flash pulmonary edema acute Heart failure acute Hypertension acute Hypertensive emergency acute Hypoxia acute [facility] Work Phone: Evaluation note* Diagnosis Abnormal SPEP- Primary Other nonspecific findings on examination of blood Anemia, unspecified type Neuropathy - (NOS) Heart disease Heart disease, unspecified documented in this [facility]* Diagnosis Onset Date Resolution Status ASHD (arteriosclerotic heart disease) acute Chronic diastolic heart failure acute Chronic venous insufficiency acute Elevated cholesterol acute Essential hypertension acute OMAR (generalized anxiety disorder) acute Gastroesophageal reflux dise ase with esophagitis without hemorrhage acute 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 [facility] Work Phone: Evaluation note* Diagnosis Onset [...] tube dysfunction acute Right otitis media acute [facility] Work Phone: Evaluation note* Diagnosis ASHD (arteriosclerotic heart disease)- Primary Coronary atherosclerosis of unspecified type of vessel, [place] or graft Essential hypertension Unspecified essential hypertension Mixed hyperlipidemia BMI 32.0-32.9,adult documented in this encounter [facility] Work Phone: Evaluation note* Diagnosis Onset [...] (generalized anxiety disorder) acute Subclinical hypothyroidism a [facility] Work Phone: Evaluation note* Diagnosis ASHD (arteriosclerotic heart disease) Coronary atherosclerosis of unspecified type of vessel, [place] or graft documented in this encounter [facility] Work Phone: Evaluation note* Diagnosis Onset Date Resolution Status Anemia acute ASHD (arteriosclerotic heart disease) acute Chronic diastolic heart failure acute Chronic venous insufficiency acute Essential hypertension acute OMAR (generalized anxiety disorder) acute Subclinical hypothyroidism a [facility] Work Phone: Evaluation note* Diagnosis 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 Lung nodules Other nonspecific abnormal finding of lung field [facility]* Diagnosis Onset Date Resolution Status [...] Subclinical hypothyroidism acute September 11, 2024 10:16am [facility] Work Phone: Evaluation note* Diagnosis Essential hypertension- Primary Unspecified essential hypertension ASHD (arteriosclerotic heart disease) Coronary atherosclerosis of unspecified type of vessel, [place] or graft Mixed hyperlipidemia BMI 32.0-32.9,adult documented in this encounter [facility] Work Phone: Evaluation note* Diagnosis ASHD (arteriosclerotic heart disease)- Primary Coronary atherosclerosis of unspecified type of vessel, [place] or graft Essential hypertension Unspecified essential hypertension Mixed hyperlipidemia BMI 32.0-32.9,adult Essential hypertension- Primary Unspecified essential hypertension ASHD (arteriosclerotic heart disease) Coronary atherosclerosis of unspecified type of vessel, [place] or graft Mixed hyperlipidemia BMI 32.0-32.9,adult ASHD (arteriosclerotic heart disease) Coronary atherosclerosis of unspecified type of vessel, [place] or graft Essential hypertension Unspecified essential hypertension BMI 33.0-33.9,adult Former smoker Personal history of tobacco use, presenting hazards to health S/P PTCA (percutaneous transluminal coronary angioplasty) Postsurgical percutaneous transluminal coronary angioplasty status Mixed hyperlipidemia Coronary arteriosclerosis after percutaneous transluminal coronary angioplasty (PTCA) documented in this encounter [facility] Work Phone: Evaluation note* Diagnosis Thyroid nodule (CMS/HCC)- Primary Nontoxic uninodular goiter [facility] Diagnosis ASHD (arteriosclerotic heart disease)- Primary Coronary atherosclerosis of unspecified type of vessel, [place] or graft Essential hypertension Unspecified essential hypertension Mixed hyperlipidemia BMI 32.0-32.9,adult Essential hypertension- Primary Unspecified essential hypertension ASHD (arteriosclerotic heart disease) Coronary atherosclerosis of unspecified type of vessel, [place] or graft Mixed hyperlipidemia BMI 32.0-32.9,adult BMI 33.0-33.9,adult- Primary Essential hypertension Unspecified essential hypertension Palpitations ASHD (arteriosclerotic heart disease) Coronary atherosclerosis of unspecified type of vessel, [place] or graft Mixed hyperlipidemia documented in this encounter [facility] Work Phone: Evaluation note* Diagnosis Nontoxic multinodular goiter (CMS/HCC)- Primary Nontoxic multinodular goiter [facility] Diagnosis ASHD (arteriosclerotic heart disease)- Primary Coronary atherosclerosis of unspecified type of vessel, [place] or graft Essential hypertension Unspecified essential hypertension Mixed hyperlipidemia BMI 32.0-32.9,adult Essential hypertension- Primary Unspecified essential hypertension ASHD (arteriosclerotic heart disease) Coronary atherosclerosis of unspecified type of vessel, [place] or graft Mixed hyperlipidemia BMI 32.0-32.9,adult BMI 33.0-33.9,adult- Primary Essential hypertension Unspecified essential hypertension Palpitations ASHD (arteriosclerotic heart disease) Coronary atherosclerosis of unspecified type of vessel, [place] or graft Mixed hyperlipidemia Essential hypertension Unspecified essential hypertension Palpitations documented in this encounter [facility] Work Phone: Evaluation note* Diagnosis Abnormal SPEP- Primary Other nonspecific findings on examination of blood [facility]* Diagnosis Abnormal SPEP- Primary Other nonspecific findings on examination of blood Primary hypertension Unspecified essential hypertension Hyperlipidemia, unspecified hyperlipidemia type Heart disease Heart disease, unspecified Edema, unspecified type 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 Anemia in other chronic diseases classified elsewhere documented in this encounter [facility] general Narrative - Reported* Type Description [...] Colonoscopy 2013 Hospitalization History see surgical history [facility] Other History general Narrative - Reported* Type [...] diagonal br Hospitalization History see surgical history [facility] Other Hospital Discharge instructions Additional Instructions Please [...] to control your blood pressure in the hospital.[facility] Work Phone: Hospital Discharge instructionsAmbulatory Orders* Referral to ENT Time Frame: 11/19/24, Location: None Selected [facility] Work Phone: Reason for referral (narrative)* Consultation (Routine) - Authorized Specialty Diagnoses / Procedures Referred By Contac t Referred To Contact Cardiology Diagnoses ASHD (arteriosclerotic heart disease) Procedures Follow Up In Cardiology Holden Rosado APRN-CNP [address] [place] [address] 2, [address] [address] Referral ID Status Reason Start Date Expiration Date V isits Requested Visits Authorized [id number] Authorized 03/05/2024 03/05/2025 1 1 * Cardiac Stress Testing (Routine) - Pending Review Specialty Diagnoses / Procedures Referred By Contac t Referred To Contact Radiology Diagnoses ASHD (arteriosclerotic heart disease) Procedures Nuclear Stress Test CHG MYOCARDIAL SPECT MULTIPLE STUDIES Holden Rosado APRN-CNP [address] [place] [address], [address] [address] Referral ID Status Reason Start Date Expiration Date V isits Requested Visits Authorized [id number] Pending Review 03/05/2024 03/05/2025 5 5 [facility] Work Phone: Reason for referral (narrative)* Consultation (Routine) - Authorized Specialty Diagnoses / Procedures Referred By Contac t Referred To Contact Cardiology Diagnoses ASHD (arteriosclerotic heart disease) Procedures Follow Up In Cardiology Holden Rosado APRN-CNP [address] [place] [address] 2, [place] [id number] Referral ID Status Reason Start Date Expiration Date V isits Requested Visits Authorized [id number] Authorized 04/21/2024 04/21/2025 1 1 [facility] Work Phone: Reason for referral (narrative)No reason for referral information available[facility] Work Phone: Reason for visit Narrative* CV Imaging (Routine) - Authorized Specialty Diagnoses / Procedures Referred By Contac t Referred To Contact Cardiology Diagnoses Essential hypertension Palpitations Procedures Transthoracic Echo Complete [place] ECHO TTHRC R-T 2D W/WOM-MODE COMPL SPEC&COLR D Holden Rosado, CONFECTIONERY MAKER-PERFECT BIND MACHINE OPERATOR [address] [facility] [address], [address] [place] [address] Phone: tel: fax: Referral ID Status Reason Start Date Expiration Date Visits Requested Visits Authorized [id number] Authorized Perform Procedure 01/12/2025 01/12/2026 1 1 [facility] Work Phone: Advance Directives Documents on File Type Date Recorded Patient Credit Card Specialist Expl anation Advance Directive(s) 08/01/2021 12:55 PM A dvance Directives Documents on File Type Date Recorded Patient Credit Card Specialist Expl anation Advance Directive(s) 08/01/2021 12:55 PM [...] COMPUTED TOMOGRAPHY THORAX W/CONTRAST Luis Mckenzie MD [address] [place] [address] [address] [place], [place] [address] Ct Imaging Referral ID Status Reason Start Date Expiration Date Visits Requested Visits Authorized [id number] Authorized Auto-Generat ed Referral 05/29/2022 06/28/2023 1 1 Specialty Diagnoses / Procedures Referred By Contac t Referred To Contact CT IMAGING Diagnoses Disorder of adrenal gland (HCC) Procedures CT ABD/PEL W IVCON CT ABD & PELVIS W/CONTRAST Luis Mckenzie MD [address] [place] [address] [place] [address] Ct Imaging Referral ID Status Reason Start Date Expiration Date Visits Requested Visits Authorized [id number] Authorized Auto-Generat ed Referral 05/29/2022 06/28/2023 1 1 Specialty Diagnoses / Procedures Referred By Contac t Referred To Contact Radiology Diagnoses ASHD (arteriosclerotic heart disease) Procedures Nuclear Stress Test CHG MYOCARDIAL SPECT MULTIPLE STUDIES Alonzo Holden Petra, CONFECTIONERY MAKER-PERFECT BIND MACHINE OPERATOR [address] [facility] [address], [address] [place] [address] Referral ID Status Reason Start Date Expiration Date V isits Requested Visits Authorized [id number] Pending Review 03/05/2024 03/05/2025 5 5 Specialty Diagnoses / Procedures Referred By Contac t Referred To Contact CT IMAGING Diagnoses Lung nodules Procedures CT CHEST W IVCON DIAGNOSTIC COMPUTED TOMOGRAPHY THORAX W/CONTRAST Luis Mckenzie MD [address] [place] [address] [address] [place], [place] [address] [id number] Referral ID Status Reason Start Date Expiration Date V isits Requested Visits Authorized [id number] Closed Auto-Generate d Referral 05/29/2022 06/28/2023 1 1 Specialty Diagnoses / Procedures Referred By Contac t Referred To Contact CT IMAGING Diagnoses Disorder of adrenal gland (HCC) Procedures CT ABD/PEL W IVCON CT ABD & PELVIS W/CONTRAST Luis Mckenzie MD [address] [place] [address] [address] [place] [address] [id number] Referral ID Status Reason Start Date Expiration Date V isits Requested Visits Authorized [id number] Closed Auto-Generate d Referral 05/29/2022 06/28/2023 1 [...] neoplasm of lung Unknown Exposure to Agent Gilliam Unknown brother Malignant neoplasm of colon Unknown [...] neoplasm of lung Unknown Exposure to Agent Gilliam Unknown brother Malignant neoplasm of colon Unknown [...] neoplasm of lung Unknown Exposure to Agent Gilliam Unknown brother Malignant neoplasm of colon Unknown [...] 23am Screening mammogram for breast cancer [facility] 2024 9:23am Subclinical hypothyroidism June 19, 2025 [...] 2025 9: 23am ASHD (arteriosclerotic heart disease) [facility] 2024 9:23am Chronic bronchitis June 19, [...] 9: 23am Screening mammogram for breast cancer [facility] 2024 9:23am Subclinical hypothyroidism June 19, [...] 2025 9: 23am ASHD (arteriosclerotic heart disease) [facility] 2024 9:23am Chronic bronchitis June 19, [...] 9: 23am Screening mammogram for breast cancer [facility] 2024 9:23am Subclinical hypothyroidism June 19, [...] or prosecute any alcohol or drug abuse patient.[facility] the event this information is protected by the Federal Confidentiality of Alcohol and Drug Abuse Patient Records regulations: The Federal rules restrict any use of the information to criminally investigate or prosecute any alcohol or drug abuse patient.[facility] the event this information is protected by the Federal Confidentiality of Alcohol and Drug Abuse Patient Records regulations: The Federal rules restrict any use of the information to criminally investigate or prosecute any alcohol or drug abuse patient.[facility] the event this information is protected by the Federal Confidentiality of Alcohol and Drug Abuse Patient Records regulations: The Federal rules restrict any use of the information to criminally investigate or prosecute any alcohol or drug abuse patient.[facility] the event this information is protected by the Federal Confidentiality of Alcohol and Drug Abuse Patient Records regulations: The Federal rules restrict any use of the information to criminally investigate or prosecute any alcohol or drug abuse patient.[facility] the event this information is protected by the Federal Confidentiality of Alcohol and Drug Abuse Patient Records regulations: The Federal rules restrict any use of the information to criminally investigate or prosecute any alcohol or drug abuse patient.[facility] the event this information is protected by the Federal Confidentiality of Alcohol and Drug Abuse Patient Records regulations: The Federal rules restrict any use of the information to criminally investigate or prosecute any alcohol or drug abuse patient.[facility] HospitalIn the event this information is protected by the Federal Confidentiality of Alcohol and Drug Abuse Patient Records regulations: The Federal rules restrict any use of the information to criminally investigate or prosecute any alcohol or drug abuse patient.[facility] Hospital[facility] the event this information is protected by the Federal Confidentiality of Alcohol and Drug Abuse Patient Records regulations: The Federal rules restrict any use of the information to criminally investigate or prosecute any alcohol or drug abuse patient.[facility] HospitalIn the event this information is protected by the Federal Confidentiality of Alcohol and Drug Abuse Patient Records regulations: The Federal rules restrict any use of the information to criminally investigate or prosecute any alcohol or drug abuse patient.[facility] Hospital[facility] the event this information is protected by the Federal Confidentiality of Alcohol and Drug Abuse Patient Records regulations: The Federal rules restrict any use of the information to criminally investigate or prosecute any alcohol or drug abuse patient.[facility] Reason for Visit (unrecogniz ed section and content) Reason Comments Lab Orders Reason Comments abnormal spep Reason Comments Results Reason Comments Abnormal SPEP Reason Comments Follow-up bradycardia Specialty Diagnoses / Procedures Referred By Contac t Referred To Contact Radiology Diagnoses ASHD (arteriosclerotic heart disease) Procedures Nuclear Stress Test CHG MYOCARDIAL SPECT MULTIPLE STUDIES Holden Rosado, CONFECTIONERY MAKER-PERFECT BIND MACHINE OPERATOR [address] [place] [address], [address] [address] Referral ID Status Reason Start Date Expiration Date V isits Requested Visits Authorized [id number] Pending Review 03/05/2024 03/05/2025 [address] Specialty Diagnoses / Procedures Referred By Contac t Referred To Contact CT IMAGING Diagnoses Lung nodules Procedures CT CHEST W IVCON DIAGNOSTIC COMPUTED TOMOGRAPHY THORAX W/CONTRAST Luis Mckenzie MD [address] [place] [address] [place] [address] Ct Imaging [id number] Referral ID Status Reason Start Date Expiration Date V isits Requested Visits Authorized [id number] Closed Auto-Generate d Referral 05/29/2022 06/28/2023 1 1 Reason Comments Follow-up Test resultx Specialty Diagnoses / Procedures Referred By Contac t Referred To Contact Cardiology Diagnoses ASHD (arteriosclerotic heart disease) Procedures Follow Up In Cardiology Edinson Perry DO [address] [place] [address], [address] [address] Holden Rosado CONFECTIONERY MAKER-PERFECT BIND MACHINE OPERATOR [address] [facility] 2, [address] [address] Referral ID Status Reason Start Date Expiration Date V isits Requested Visits Authorized [id number] Authorized 10/17/2023 10/16/2024 1 1 Reason Comments Follow-up 6 month Specialty Diagnoses / Procedures Referred By Contac t Referred To Contact Cardiology Diagnoses ASHD (arteriosclerotic heart disease) Procedures Follow Up In Cardiology Holden Rosado, CONFECTIONERY MAKER-PERFECT BIND MACHINE OPERATOR [address] [facility] 2, [address] [address] Phone: tel: fax: Referral ID Status Reason Start Date Expiration Date V isits Requested Visits Authorized [id number] Authorized 04/21/2024 04/21/2025 1 1 Reason Onset Date Comments Med Refill 10/09/2024 Reason Comments Thyroid Nodule Specialty Diagnoses / Procedures Referred By Contac t Referred To Contact Otolaryngology Diagnoses Nontoxic single thyroid nodule (CMS/HCC) Procedures [place] [facility] Nathan Hathaway MD [address] [place] [address] Phone: tel: Reyna Esparza MD [address] [facility] [address] [place] [address] Phone: tel: fax: Referral ID Status Reason Start Date Expiration Date Visits Re quested Visits Authorized [id number] Closed 11/19/2024 05/18/2025 1 1 Reason Comments Follow-up 6 months Follow up f or Coronary Artery Disease Specialty Diagnoses / Procedures Referred By Contac t Referred To Contact Cardiology Diagnoses Essential hypertension Procedures Follow Up In Cardiology Edinson Perry DO [address] [facility] 2, [address] [address] Phone: tel: fax: Holden Rosado, CONFECTIONERY MAKER-PERFECT BIND MACHINE OPERATOR [address] [facility] 2, [address] [address] Phone: tel: fax: Referral ID Status Reason Start Date Expiration Date V isits Requested Visits Authorized [id number] Authorized 10/08/2024 10/08/2025 1 1 Reason Comments [...] 2024 Team Status: Active Member Role Status Horetncia Hathaway DO Primary Care Provide r, Attending [...] Team Status: Active Member Role Status Hortencia Hathaawy DO Primary Care Provider Active Start: April [...] February 01, 2024 End: February 01, 2024 Taffy Puller Relationship Specialty Start Date End Date Nathan Hathaway DO PCP - General Internal Medicine 01/31/12 Taffy Puller Relationship Specialty Start Date End Date Nathan Hathaway DO PCP - General Internal Medicine 01/31/12 Taffy Puller Relationship Specialty Start Date End Date Nathan Hathaway DO PCP - General Internal Medicine 01/31/12 Taffy Puller Relationship Specialty Start Date End Date Nathan [...] , DO Admit Provider, Attending Provider Active Taffy Puller Relationship Specialty Start Date End Date Nathan Hathaway DO PCP - General Internal Medicine 01/31/12 Taffy Puller Relationship Specialty Start Date End Date Nathan Hathaway DO PCP - General Internal Medicine 01/31/12 Team Status: Active Member Role Status Dates Nathan Hathaway DO Primary Care Provide r, Attending Provider Active Start: February 02, 2024 Team Status: Inactive Member Role Status Dates Nathan Hathaway DO Primary Care Provider Active Start: February 13, 2024 End: February 13, 2024 Deja Pope APRN TROUBLE DISPATCHER-C Attending Provider Act babar Start: February 13, 2024 End: February 13, 2024 Taffy Puller Relationship Specialty Start Date End Date Nathan [...] February 27, 2024 End: February 27, 2024 Taffy Puller Relationship Specialty Start Date End Date Nathan Hathaway DO PCP - General Internal Medicine 10/03/23 Taffy Puller Relationship Specialty Start Date End Date Nathan Hathaway DO PCP - General Internal Medicine 10/03/23 Taffy Puller Relationship Specialty Start Date End Date Nathan Hathaway DO PCP - General Internal Medicine 10/03/23 Taffy Puller Relationship Specialty Start Date End Date Nathan Hathaway DO PCP - General Internal Medicine 10/03/23 Taffy Puller Relationship Specialty Start Date End Date Nathan Hathaway DO PCP - General Internal Medicine 01/31/12 Taffy Puller Relationship Specialty Start Date End Date Nathan Hathaway DO PCP - General Internal Medicine 10/03/23 Taffy Puller Relationship Specialty Start Date End Date Nathan Hathaway DO PCP - General Internal Medicine 10/03/23 Taffy Puller Relationship Specialty Start Date End Date Nathan Hathaway MD [address] [facility] [place] [address] PCP - External PCP Internal Medicine 06/29/23 Taffy Puller Relationship Specialty Start Date End Date Nathan Hathaway MD [address] [facility] [place] [address] PCP - External PCP Internal Medicine 06/29/23 Taffy Puller Relationship Specialty Start Date End Date Nathan Hathaway MD [address] [facility] [place] [address] PCP - External PCP Internal Medicine 06/29/23 Taffy Puller Relationship Specialty Start Date End Date Nathan Hathaway DO PCP - General Internal Medicine 10/03/23 Team Status: Inactive Member Role Status Dates Nathan Hathaway DO Primary Care Provide r, Attending Provider Active Start: January 22, 2025 End: January 22, 2025 Taffy Puller Relationship Specialty Start Date End Date Nathan Hathaway MD [address] [facility] [place] [address] PCP - General Internal Medicine 02/10/25 Taffy Puller Relationship Specialty Start Date End Date Nathan Hathaway DO [address] [facility] [place] [address] PCP - General Internal Medicine 02/10/25 Taffy Puller Relationship Specialty Start Date End Date Nathan Hathaway DO [address] [facility] [place] [address] PCP - General Internal Medicine 02/10/25 Taffy Puller Relationship Specialty Start Date End Date Nathan Hathaway DO [address] [place] [address] PCP - General Internal Medicine 03/09/25 Team [...] June 19, 2025 End: June 19, 2025 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 Puller Relationship Specialty Start Date End Date Nathan Hathaway DO PCP - General Internal Medicine 01/31/12 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 DATE CREATED AUTHOR AUTHOR'S ORGANIZ ATION 02/26/2025 [facility] DATE CREATED AUTHOR AUTHOR'S ORGANIZ ATION 03/26/2025 [facility] DATE CREATED AUTHOR AUTHOR'S ORGANIZ ATION 03/26/2025 [facility] DATE CREATED AUTHOR AUTHOR'S ORGANIZ ATION 07/19/2025 [facility] Goals (unrecognized section and content) Goals may [...] BE BASED ON THE PRIMARY CLINICAL RECORDS. [facility] provides no warranty or guarantee of the accuracy or completeness of information in this document.
[2025-08-14 07:47] LABS: Hematocrit 24.9 % (36.0-48.0); Hemoglobin 8.2 g/dL (12.0-16.0); Immature Granulocytes Abs Auto 0.03 10^3/uL (0.00-0.03); Immature Granulocytes Pct Auto 0.4 % (0.0-0.5); Lymphocytes Absolute Auto 0.7 10^3/uL (1.2-3.8); Mean Corpuscular HGB Conc 32.9 g/dL (29.9-35.2); Mean Corpuscular Hemoglobin 28.3 pg (26.7-34.0); Mean Corpuscular Volume 85.9 fL (81.0-99.0); Platelet Count 276 10^3/uL (150-450); Red Blood Count 2.90 10^6/uL (4.20-5.40); White Blood Count 6.9 10^3/uL (4.0-11.0)
[2025-08-14] MEDS: FUROSEMIDE 40 MG/4 ML VIAL IVP ×2 (08:22→18:11)
[2025-08-14 08:36] LABS: Anion Gap 13.3; Blood Urea Nitrogen 32.0 mg/dL (7.0-18.0); Calcium 8.4 mg/dL (8.5-10.1); Carbon Dioxide 23.9 mmol/L (21.0-32.0); Chloride 101 mmol/L (98-107); Estimated GFR (African America 40 (>=60 mL/min/1.73m^2); Estimated GFR (Non-African Ame 33 (>=60 mL/min/1.73m^2); Glucose 108 mg/dL (74-106); NT Pro B Type Natriuretic Pept 1330.0 pg/mL (<=1800.0); Potassium 4.2 mmol/L (3.5-5.1); Sodium 134 mmol/L (136-145)
--- OUTSIDE RECORDS SUMMARY | 2025-08-14 09:12 | XMS_ITS | CCD ---
Author Organization [facility] CliniSysd Care Team Providers Care Remote Computer Terminal Operator Name Role Phone Nathan Hathaway DO Primary [...] DR EVANS Primary Care Unavailable JORGE, DR WLILIAM Jackson Consulting Unavailable BALL, DR EVANS Attending [...] Unavai lable Ch, DO Fernando Emergency Provider [phone] DO Lj Ryan Admit Provider [phone] Connor, DO Lj Wagoner Attending Provider Fransico REILLY, Nathan Whitlock Primary Care Provider Fransico REILLY, Nathan Whitlock Primary Care Provider Ball, DO Evans Primary Care Provider THONY Rosado Attending Provider Fransico DO, Nathan Whitlock Primary Care Provider Nathan Hathaway MD Unavailable [phone] Fransico REILLY, Nathan Primary Care Provider Fransico REILLY, Nathan Attending Provider Nathan Hathaway DO Primary Care Provider Fransico REILLY, Nathan Primary Care Provider Fransico REILLY, Nathan Attending Provider [phone] Nathan Hathaway MD Primary Care Provider Nathan [...] Provider Fransico REILLY, Nathan Primary Care Provider [phone] KeJorge L whyte DO Emergency Provider HOLDEN [...] Care Provider Fransico REILLY, Nathan Attending Provider [phone] Nathan Hathaway DO Primary Care Provider [phone] Fransico REILLY, Nathan Attending Provider [phone] BALL, NATHAN E Primary Care Unavailable SONJA PAOLO Attending Unavailable BALL, NATHAN E Primary Care Unavailable BALL, NATHAN E Referring Unavailable BALL, NATHAN E Primary Care Unavailable BALL, NATHAN E Referring Unavailable BALL, NATHAN E Primary Care Unavailable BALL, NATHAN E Referring Unavailable Fanny Bedoya APRN Attending Provider [phone] Valentin Leonard MD, V Attending Provider [phone] Shelbi CASTRO-C, Kaia Campos Attending Provider [phone] Allergies Allergy Classification Reported Allergen(s) Allergy Type Date of Onset Reaction(s) Facility (20 sources) amLODIPine; Translations: [AMLODIPINE] Drug Allergy 07-27-20 Unknown [facility] (12 sources) Codeine / guaiFENesin; Translations: [CODEINE-GUAIFENESI N] Drug Allergy 07-27-20 21 Unknown [facility] (12 sources) Doxycycline; Translations: [DOXYCYCLINE HYCLATE] Drug Allergy 07-27-20 21 Unknown [facility] (20 sources) DULoxetine; Translations: [DULOXETINE] Drug Allergy 07-27-20 21 Unknown [facility] (20 sources) levoFLOXacin; Translations: [LEVOFLOXACIN] Drug Allergy 07-27-20 21 Unknown [facility] (20 sources) Ondansetron; Translations: [ONDANSETRON] Drug Allergy 07-27-20 Unknown [facility] Comment on above: Onset Date: 10/29/19 20 (20 sources) Penicillins; Translations: [PENICILLINS] Propensity to adverse reactions to drug 07-27-20 21 Unknown [facility] (20 sources) Sulfamethoxazole / Trimethoprim; Translations: [Bactrim] Drug Allergy 07-27-20 Unknown, Hives [facility] (8 sources) Tetracycline (class of antibiotic); Translations: [TETRACYCLINES] Propensity to adverse reactions to drug 07-27-20 Unknown [facility] (12 sources) Iodine And Iodide Containing Products; Translations: [IODINE AND IODIDE CONTAINING PRODUCTS] Drug Allergy 01-20-20 21 Unknown [facility] (20 sources) Tetanus And Diphtheria Toxoids; Translations: [TETANUS AND DIPHTHERIA TOXOIDS] Propensity to adverse reactions to drug 07-27-20 21 Unknown [facility] (20 sources) Amoxicillin Drug Allergy 02-01-20 24 Unknown, Unknown Reaction [facility] (20 sources) Codeine / guaiFENesin Drug Allergy Unknown [employer] Other (20 sources) Doxycycline Drug Allergy 12-09-19 19 Unknown, Unknown Reaction [facility] (20 sources) levoFLOXacin Drug Allergy Unknown [employer] Other (20 sources) Ondansetron; Translations: [Zofran] Drug Allergy 11-05-19 Unknown [facility] (20 sources) Tetanus-Diphtheria Toxoids Td Drug allergy Unknown [employer] [facility] [employer] Other (20 sources) Allopurinol Drug Allergy 11-05-19 24 Unknown [facility] (1 source) amLODIPine Drug Allergy 11-05-19 20 [facility] (1 source) Doxycycline Drug Allergy [facility] (1 source) DULoxetine Drug Allergy 11-05-19 20 [facility] (1 source) Iodine (And Iodine Containting Drugs) Drug allergy (disorder) 01-20-20 21 [facility] (1 source) Sulfamethoxazole / Trimethoprim Drug Allergy 11-05-19 20 [facility] (9 sources) Sulfonamides (Antibiotic); Translations: [SULFA (SULFONAMIDE ANTIBIOTICS)] Allergy to substance 03-08-20 23 Rash, Unknown [facility] (16 sources) Sulfamethoxazole Drug Allergy 03-09-20 23 Unknown Reaction [facility] (8 sources) Trimethoprim; Translations: [TRIMETHOPRIM] Drug Allergy 03-09-20 23 Unknown [facility] (20 sources) Pseudoephedrine; Translations: [PSEUDOEPHEDRINE] Drug Allergy 10-29-19 Unknown [employer] Other (20 sources) Tetracycline Drug Allergy Unknown [employer] Other (20 sources) Cheratussin AC *COUGH/COLD/ALLERGY * Propensity to adverse reactions 10-29-19 Unknown [employer] Other (20 sources) Zofran *ANTIEMETICS* Propensity to adverse reactions 10-29-19 Unknown [employer] [facility] [employer] Other (5 sources) amLODIPine Drug Allergy Unknown [employer] Other (20 sources) Azithromycin; Translations: [AZITHROMYCIN] Drug Allergy 10-17-20 rash, Swelling [facility] (20 sources) Codeine Drug Allergy 02-01-20 Unknown Reaction [facility] (15 sources) guaiFENesin Drug Allergy 02-01-20 24 Unknown Reaction [facility] (15 sources) 12 Hour Decongestant Allergy to substance 02-01-20 Unknown Reaction [facility] Comment on above: Onset Date: 10/29/19 (15 sources) Cheratussin AC *COUGH/COLD/ALL Allergy to substance 02-01-20 Unknown Reaction [facility] Comment on above: Free Text Allergy: C heratussin AC *COUGH/COLD/ALLERGY*; Onset Date: 10/29/2019 (8 sources) Penicillins Drug Intolerance 07-27-20 21 [facility] (4 sources) Penicillins Propensity to adverse reactions to drug 07-27-20 21 Unknown [facility] (4 sources) Tetracyclines Propensity to adverse reactions to drug 07-27-20 21 Unknown [facility] (1 source) Allopurinol; Translations: [ALLOPURINOL] Drug Allergy 11-05-19 [facility] Repository Medications Current Medications Medication Drug Class(es) Dates Sig (Normalized) Sig (Original) AeroChamber Mini Chamber - (5 sources) Start: 04-20-2023 AeroChamber Mini Chamber - Use with MDI every 6 hours as needed inhaled every 6 hours as needed for 30 days Mar, Active [id number] 200 actuat albuterol 0.09 mg/actuat metered dose [...] twice daily. Active take 1 capsule by 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 ASPIRIN] Onset: 02-14-2023 Episodic Other aftercare (1 source) Other buttermaker (current) drug therapy; Translations: [OTH SPECIAL WARFARE BOAT OPERATOR CURRENT DRUG THERAPY] Onset: 02-14-2023 Episodic Other [...] 07-15-2025 Basophils (Bld) [#/Vol] 0.05 10*3/uL <0.11 [facility] Basophils/100 WBC Auto (Bld) Ordered By: Valentin Leonard on 07-15-2025 Basophils/100 WBC (Bld) 0.8 % [facility] Blood manual differential co mment interpretation narrativeOrdered By: Valentin Leonard on 07-15-2025 Manual differential comment Arturo (Bld) [Interp] Auto [facility] CBC W Auto Differential pane l (Bld)on 07-15-2025 Basophils (Bld) [#/Vol] 0.05 10*3/uL Normal <0.11 [facility] Comment on above: Order Comment: Speci men Type: BLOOD SPECIMEN Ordering Facility: [facility] Address: [address] [place] [address] Performed By: #### 1 5061-5 #### [facility] CLIA [id number] [address] [place] [address] [place] Basophils/100 WBC (Bld) 0.8 % Normal [facility] Comment on above: Order Comment: Speci men Type: BLOOD SPECIMEN Ordering Facility: [facility] Address: [address] [place] [address] Performed By: #### 1 5061-5 #### [facility] CLIA [id number] [address] [place] [address] [place] Differential cell count method Nom (Bld) Auto Normal [facility] Comment on above: Order Comment: Speci men Type: BLOOD SPECIMEN Ordering Facility: [facility] Address: [address] [place] [address] Performed By: #### 1 5061-5 #### [facility] CLIA [id number] [address] [place] [address] [place] Eosinophils (Bld) [#/Vol] 0.16 10*3/uL Normal <0.46 [facility] Comment on above: Order Comment: Speci men Type: BLOOD SPECIMEN Ordering Facility: [facility] Address: [address] [place] [address] Performed By: #### 1 5061-5 #### [facility] CLIA [id number] [address] [place] [address] [place] Eosinophils/100 WBC (Bld) 2.5 % Normal [facility] Comment on above: Order Comment: Speci men Type: BLOOD SPECIMEN Ordering Facility: [facility] Address: [address] [place] [address] Performed By: #### 1 5061-5 #### [facility] CLIA [id number] [address] [place] [address] [place] Erythrocyte distribution width (RBC) [Ratio] 13.5 % Normal 11.5-15.0 [facility] Comment on above: Order Comment: Speci men Type: BLOOD SPECIMEN Ordering Facility: [facility] Address: [address] [place] [address] Performed By: #### 1 5061-5 #### [facility] CLIA [id number] [address] [place] [address] [place] Hematocrit (Bld) [Volume fraction] 27.6 % Low 36.0-46.0 [facility] Comment on above: Order Comment: Speci men Type: BLOOD SPECIMEN Ordering Facility: [facility] Address: [address] [place] [address] Performed By: #### 1 5061-5 #### [facility] CLIA [id number] [address] [place] [address] [place] Hemoglobin (Bld) [Mass/Vol] 8.9 g/dL Low 11.5-15.5 [facility] Comment on above: Order Comment: Speci men Type: BLOOD SPECIMEN Ordering Facility: [facility] Address: [address] [place] [address] Performed By: #### 1 5061-5 #### [facility] CLIA [id number] [address] [place] [address] [place] Immature granulocytes (Bld) [#/Vol] 0.03 10*3/uL Normal <0.10 [facility] Comment on above: Order Comment: Speci men Type: BLOOD SPECIMEN Ordering Facility: [facility] Address: [address] [place] [address] Performed By: #### 1 5061-5 #### [facility] CLIA [id number] [address] [place] [address] [place] Immature granulocytes/100 WBC (Bld) 0.5 % Normal [facility] Comment on above: Order Comment: Speci men Type: BLOOD SPECIMEN Ordering Facility: [facility] Address: [address] [place] [address] Performed By: #### 1 5061-5 #### [facility] CLIA [id number] [address] [place] [address] [place] Lymphocytes (Bld) [#/Vol] 0.77 10*3/uL Low 1.00-4.00 [facility] Comment on above: Order Comment: Speci men Type: BLOOD SPECIMEN Ordering Facility: [facility] Address: [address] [place] [address] Performed By: #### 1 5061-5 #### [facility] CLIA [id number] [address] [place] [address] [place] Lymphocytes/100 WBC (Bld) 12.3 % Normal [facility] Comment on above: Order Comment: Speci men Type: BLOOD SPECIMEN Ordering Facility: [facility] Address: [address] [place] [address] Performed By: #### 1 5061-5 #### [facility] CLIA [id number] [address] [place] [address] [place] MCH (RBC) [Entitic mass] 28.8 pg Normal 26.0-34.0 [facility] Comment on above: Order Comment: Speci men Type: BLOOD SPECIMEN Ordering Facility: [facility] Address: [address] [place] [address] Performed By: #### 1 5061-5 #### [facility] CLIA [id number] [address] [place] [address] [place] MCHC (RBC) [Mass/Vol] 32.2 g/dL Normal 30.5-36.0 [facility] Comment on above: Order Comment: Speci men Type: BLOOD SPECIMEN Ordering Facility: [facility] Address: [address] [place] [address] Performed By: #### 1 5061-5 #### [facility] CLIA [id number] [address] [place] [address] [place] MCV (RBC) [Entitic vol] 89.3 fL Normal 80.0-100.0 [facility] Comment on above: Order Comment: Speci men Type: BLOOD SPECIMEN Ordering Facility: [facility] Address: [address] [place] [address] Performed By: #### 1 5061-5 #### [facility] CLIA [id number] [address] [place] [address] [place] Monocytes (Bld) [#/Vol] 0.65 10*3/uL Normal <0.87 [facility] Comment on above: Order Comment: Speci men Type: BLOOD SPECIMEN Ordering Facility: [facility] Address: [address] [place] [address] Performed By: #### 1 5061-5 #### [facility] CLIA [id number] [address] [place] [address] [place] Monocytes/100 WBC (Bld) 10.4 % Normal [facility] Comment on above: Order Comment: Speci men Type: BLOOD SPECIMEN Ordering Facility: [facility] Address: [address] [place] [address] Performed By: #### 1 5061-5 #### [facility] CLIA [id number] [address] [place] [address] [place] Neutrophils (Bld) [#/Vol] 4.62 10*3/uL Normal 1.45-7.50 [facility] Comment on above: Order Comment: Speci men Type: BLOOD SPECIMEN Ordering Facility: [facility] Address: [address] [place] [address] Performed By: #### 1 5061-5 #### [facility] CLIA [id number] [address] [place] [address] [place] Neutrophils/100 WBC (Bld) 73.5 % Normal [facility] Comment on above: Order Comment: Speci men Type: BLOOD SPECIMEN Ordering Facility: [facility] Address: [address] [place] [address] Performed By: #### 1 5061-5 #### [facility] CLIA [id number] [address] [place] [address] [place] Nucleated RBC (Bld) [#/Vol] 10*3/uL Normal <0.01 [facility] Comment on above: Order Comment: Speci men Type: BLOOD SPECIMEN Ordering Facility: [facility] Address: [address] [place] [address] Performed By: #### 1 5061-5 #### [facility] CLIA [id number] [address] [place], [place] [address] [place] Nucleated RBC/100 WBC (Bld) [Ratio] 0.0 /100 WBC Normal [facility] Comment on above: Order Comment: Speci men Type: BLOOD SPECIMEN Ordering Facility: [facility] Address: [address] [place] [address] Performed By: #### 1 5061-5 #### [facility] CLIA [id number] [address] [place] [address] [place] Platelet mean volume (Bld) [Entitic vol] 9.9 fL Normal 9.0-12.7 [facility] Comment on above: Order Comment: Speci men Type: BLOOD SPECIMEN Ordering Facility: [facility] Address: [address] [place] [address] Performed By: #### 1 5061-5 #### [facility] CLIA [id number] [address] [place] [address] [place] Platelets (Bld) [#/Vol] 295 10*3/uL Normal 150-400 [facility] Comment on above: Order Comment: Speci men Type: BLOOD SPECIMEN Ordering Facility: [facility] Address: [address] [place] [address] Performed By: #### 1 5061-5 #### [facility] CLIA [id number] [address] [place] [address] [place] RBC (Bld) [#/Vol] 3.09 10*6/uL Low 3.90-5.20 [facility] Comment on above: Order Comment: Speci men Type: BLOOD SPECIMEN Ordering Facility: [facility] Address: [address] [place] [address] Performed By: #### 1 5061-5 #### [facility] CLIA [id number] [address] [place] [address] [place] WBC (Bld) [#/Vol] 6.28 10*3/uL Normal 3.70-11.00 [facility] Comment on above: Order Comment: Speci men Type: BLOOD SPECIMEN Ordering Facility: [facility] Address: [address] [place] [address] Performed By: #### 1 5061-5 #### [facility] CLIA [id number] [address] [place], [place] [address] [place] [address] [place] [facility] [place] Comprehensive metabolic 2000 panelon 07-15-2025 Albumin [Mass/Vol] 3.7 g/dL Low 3.9-4.9 [facility] Comment on above: Order Comment: Speci men Type: BLOOD SPECIMEN Ordering Facility: [facility] Address: [address] [place] [address] Performed By: #### 2 4323-8 #### [facility] CLIA [id number] [address] [place] [address] ALP [Catalytic activity/Vol] 45 U/L Normal 34-123 [facility] Comment on above: Order Comment: Speci men Type: BLOOD SPECIMEN Ordering Facility: [facility] Address: [address] [place] [address] Performed By: #### 2 4323-8 #### [facility] CLIA [id number] [address] [place] [address]20 ALT [Catalytic activity/Vol] 10 U/L Normal 7-38 [facility] Comment on above: Order Comment: Speci men Type: BLOOD SPECIMEN Ordering Facility: [facility] Address: [address] [place] [address] Performed By: #### 2 4323-8 #### [facility] CLIA [id number] [address] [place] [address] Anion gap [Moles/Vol] 10 mmol/L Normal 8-15 [facility] Comment on above: Order Comment: Speci men Type: BLOOD SPECIMEN Ordering Facility: [facility] Address: [address] [place] [address] Performed By: #### 2 4323-8 #### [facility] CLIA [id number] [address] [place] [address] AST [Catalytic activity/Vol] 16 U/L Normal 13-35 [facility] Comment on above: Order Comment: Speci men Type: BLOOD SPECIMEN Ordering Facility: [facility] Address: [address] [place] [address] Performed By: #### 2 4323-8 #### [facility] CLIA [id number] [address] [place] [address] Bilirubin [Mass/Vol] 0.3 mg/dL Normal 0.2-1.3 [facility] Comment on above: Order Comment: Speci men Type: BLOOD SPECIMEN Ordering Facility: [facility] Address: [address] [place] [address] Performed By: #### 2 4323-8 #### [facility] CLIA [id number] [address] [place] [address] Calcium [Mass/Vol] 9.0 mg/dL Normal 8.5-10.2 [facility] Comment on above: Order Comment: Speci men Type: BLOOD SPECIMEN Ordering Facility: [facility] Address: [address] [place] [address] Performed By: #### 2 4323-8 #### [facility] CLIA [id number] [address] [place] [address] Chloride [Moles/Vol] 101 mmol/L Normal 98-107 [facility] Comment on above: Order Comment: Speci men Type: BLOOD SPECIMEN Ordering Facility: [facility] Address: [address] [place] [address] Performed By: #### 2 4323-8 #### [facility] CLIA [id number] [address] [place] [address] 27478 CO2 [Moles/Vol] 28 mmol/L Normal 22-30 [facility] Comment on above: Order Comment: Speci men Type: BLOOD SPECIMEN Ordering Facility: [facility] Address: [address] [place] [address] Performed By: #### 2 4323-8 #### [facility] CLIA [id number] [address] [place] [address]47 Creatinine [Mass/Vol] 1.64 mg/dL High 0.58-0.96 [facility] Comment on above: Order Comment: Speci men Type: BLOOD SPECIMEN Ordering Facility: [facility] Address: [address] [id number] Performed By: #### 2 4323-8 #### [facility] CLIA [id number] [address] [place] [address] eGFRcr SerPlBld CKD-EPI 2020 31 mL/min/1.73m??? Low >=60 [facility] Comment on above: Order Comment: Speci men Type: BLOOD SPECIMEN Ordering Facility: [facility] Address: [address] [place] [address] Result Comment: Shoshana mated Glomerular Filtration Rate [...] GFR. Performed By: #### 2 4323-8 #### [facility] CLIA [id number] [address] [place] [address]85 Glucose [Mass/Vol] 103 mg/dL High 74-99 [facility] Comment on above: Order Comment: Speci men Type: BLOOD SPECIMEN Ordering Facility: [facility] Address: [address] [id number] Result Comment: The [place] Diabetes Association (ADA) provides guidance for cutoff [...] Medical Care in Diabetes 2016, [place] Diabetes Association. Diabetes Care. 2016.39(Suppl 1). Performed By: #### 2 4323-8 #### [facility] CLIA [id number] [address] [place] [address] Potassium [Moles/Vol] 4.7 mmol/L Normal 3.7-5.1 [facility] Comment on above: Order Comment: Speci men Type: BLOOD SPECIMEN Ordering Facility: [facility] Address: [address] [place] [address] Performed By: #### 2 4323-8 #### [facility] CLIA [id number] [address] [place] [address] Protein [Mass/Vol] 5.9 g/dL Low 6.3-8.0 [facility] Comment on above: Order Comment: Speci men Type: BLOOD SPECIMEN Ordering Facility: [facility] Address: [address] [place], [place] [id number] Performed By: #### 2 4323-8 #### [facility] CLIA [id number] [address] [place] [address] Sodium [Moles/Vol] 139 mmol/L Normal 136-144 [facility] Comment on above: Order Comment: Speci men Type: BLOOD SPECIMEN Ordering Facility: [facility] Address: [address] [place] [address] Performed By: #### 2 4323-8 #### [facility] CLIA [id number] [address] [place] [address]10 Urea nitrogen [Mass/Vol] 32 mg/dL High 7-21 [facility] Comment on above: Order Comment: Speci men Type: BLOOD SPECIMEN Ordering Facility: [facility] Address: [address] [place] [address] Performed By: #### 2 4323-8 #### [facility] CLIA [id number] [address] [place] [address] EPO SerPl-aCncon 07-15-2025 Erythropoietin (EPO) Qn 26.4 mIU/mL High 2.6-18.5 [facility] Comment on above: Order Comment: Speci men Type: BLOOD SPECIMEN Ordering Facility: [facility] Address: [address] [place] [address] Performed By: #### 1 5061-5 #### [facility] CLIA [id number] [address] [place] [address] [place] Eosinophils/100 WBC Auto (Bl d)Ordered By: Valentin Leonard on 07-15-2025 Eosinophils/100 WBC (Bld) 2.5 % [facility] Erythrocyte distribution wid th Auto (RBC) [Ratio]Ordered By: Valentin Leonard on 07-15-2025 Erythrocyte distribution width (RBC) [Ratio] 13.5 % 11.5-15.0 [facility] Ferritin SerPl-mCncon 2024 Ferritin [Mass/Vol] 174.0 ng/mL Normal 14.7-205.1 [facility] Comment on above: Order Comment: Speci men Type: BLOOD SPECIMEN Ordering Facility: [facility] Address: [address] [place] [address] Performed By: #### 5 0190-8, 2284-8, 9, 2275-4 #### [facility] CLIA [id number] [address] [place] [address] [place] Folate SerPl-mCncon 07-15-20 25 Folate [Mass/Vol] 17.5 ng/mL Normal >4.7 [facility] Comment on above: Order Comment: Speci men Type: BLOOD SPECIMEN Ordering Facility: [facility] Address: [address] [place] [address] Performed By: #### 5 0190-8, 2284-8, 9, 6-4 #### [facility] CLIA [id number] [address] [place] [address] [place] Glomerular filtration rate [ Volume Rate/Area] in Serum, Plasma or Blood by CreatinineOrdered By: Valentin Leonard on 07-15-2025 Glomerular filtration rate [Volume Rate/Area] in Serum, Plasma or Blood by Creatinine 31 mL/min/1.73m??? Low >=60 [facility] Comment on above: Estimated Glomerular Filtration Rate [...] (Bld) [Volume fraction] 27.6 % Low 36.0-46.0 [facility] Hemoglobin [Mass/volume] in BloodOrdered By: Valentin Leonard on 07-15-2025 Hemoglobin (Bld) [Mass/Vol] 8.9 g/dL Low 11.5-15.5 [facility] Iron and Iron binding capaci ty panelon 07-15-2025 Iron [Mass/Vol] 45 ug/dL Normal 41-186 [facility] Comment on above: Order Comment: Speci men Type: BLOOD SPECIMEN Ordering Facility: [facility] Address: [address] [place] [address] Performed By: #### 5 0190-8, 2284-8, 2132-9, 2276-4 #### [facility] CLIA [id number] [address] [place] [address] [place] Iron binding capacity [Mass/Vol] 255 ug/dL Normal 232-386 [facility] Comment on above: Order Comment: Speci men Type: BLOOD SPECIMEN Ordering Facility: [facility] Address: [address] [place] [address] Performed By: #### 5 0190-8, 4-8, 2131-9, 6-4 #### [facility] CLIA [id number] [address] [place] [address] [place] Iron/TIBC [Molar ratio] 17.6 % Normal 15.0-57.0 [facility] Comment on above: Order Comment: Speci men Type: BLOOD SPECIMEN Ordering Facility: [facility] Address: [address] [place] [address] Performed By: #### 5 0190-8, 4-8, 2131-9, 6-4 #### [facility] CLIA [id number] [address] [place] [address] [place] Iron binding capacity [Mass/ volume] in Serum or PlasmaOrdered By: Valentin Abhyankar on 07-15-2025 Iron binding capacity [Mass/Vol] 255 ug/dL 232-386 [facility] Iron saturation [Mass Fracti on] in Serum or PlasmaOrdered By: Valentin Abhyankar on 07-15-2025 Iron saturation [Mass fraction] 17.6 % 15.0-57.0 [facility] Laboratory - Chemistry and C hemistry - challengeOrdered By: Valentin Leonard on 07-15-2025 Albumin [Mass/Vol] 3.7 g/dL Low 3.9-4.9 [facility] ALP [Catalytic activity/Vol] 45 U/L 34-123 [facility] ALT [Catalytic activity/Vol] 10 U/L 7-38 [facility] AST [Catalytic activity/Vol] 16 U/L 13-35 [facility] Bilirubin [Mass/Vol] 0.3 mg/dL 0.2-1.[address] [facility] Calcium [Mass/Vol] 9.0 mg/dL 8.5-10.2 [facility] Chloride [Moles/Vol] 101 mmol/L 98-[address] [facility] CO2 [Moles/Vol] 28 mmol/L 22-30 [facility] Creatinine [Mass/Vol] 1.64 mg/dL High 0.58-0.96 [facility] Ferritin [Mass/Vol] 174.0 ng/mL 14.7-205.[address] [facility] Glucose [Mass/Vol] 103 mg/dL High 74-99 [facility] Comment on above: The [place] Diabete s Association (ADA) provides guidance for [...] Medical Care in Diabetes 2016, [place] Diabetes Association. Diabetes Care. 2016.39(Suppl 1). Iron [Mass/Vol] 45 ug/dL 41-186 [facility] Potassium [Moles/Vol] 4.7 mmol/L 3.7-5.1 [facility] Sodium [Moles/Vol] 139 mmol/L 136-144 [facility] Urea nitrogen [Mass/Vol] 32 mg/dL High 7-21 [facility] Laboratory - Chemistry and C hemistry - challengeOrdered By: Nathan Hathaway on 07-15-2025 Cobalamin (Vitamin B12) [Mass/Vol] 1457 pg/mL High 232-1245 [facility] Laboratory - Hematology and Cell countsOrdered By: Valentin Leonard on 07-15-2025 Eosinophils (Bld) [#/Vol] 0.16 10*3/uL <0.46 [facility] Immature granulocytes (Bld) [#/Vol] 0.03 10*3/uL <0.10 [facility] Immature granulocytes/100 WBC (Bld) 0.5 % [facility] Leukocytes [#/volume] correc miguel for nucleated erythrocytes in Blood by Automated counOrdered By: Valentin Leonard on 07-15-2025 WBC corrected for nucl RBC Auto (Bld) [#/Vol] 6.28 k/uL 3.70-11.00 [facility] Lymphocytes Auto (Bld) [#/Vo l]Ordered By: Valentin Leonard on 07-15-2025 Lymphocytes (Bld) [#/Vol] 0.77 10*3/uL Low 1.00-4.00 [facility] Lymphocytes/100 WBC Auto (Bl d)Ordered By: Valentin Leonard on 07-15-2025 Lymphocytes/100 WBC (Bld) 12.3 % [facility] MCH Auto (RBC) [Entitic mass ]Ordered By: Valentin Leonard on 07-15-2025 MCH (RBC) [Entitic mass] 28.8 pg 26.0-34.0 [facility] MCHC Auto (RBC) [Mass/Vol]Or dered By: Valentin Leonard on 07-15-2025 MCHC (RBC) [Mass/Vol] 32.2 g/dL 30.5-36.0 [facility] MCV Auto (RBC) [Entitic vol] Ordered By: Valentin Leonard on 07-15-2025 MCV (RBC) [Entitic vol] 89.3 fL 80.0-100.0 [facility] 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 ANALYSI Son 07-15-2025 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 RESULT Normal [facility] Comment on above: Order Comment: Speci men Type: BLOOD SPECIMEN Ordering Facility: [facility] Address: [address] [place] [address] Result Comment: MYD8 8 L265P MUTATION ANALYSIS Laboratory Accession Number: [id number] Sample Type: Peripheral Blood Result: MYD88 L265P (c.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 Interpretation: The MYD88 missense variant L265P (c.794T>C, p.Nzn808Ipi) is present. L265P is highly characteristic of [...] presence or absence of the L265P (c.794T>C, p.Ynv211Tmo; g.[id number]; [id number]) variant (mutation) in MYD88 gene (NM_002468.4) using [...] MYD88 mutations in human lymphoma. Nature 2011. 470(2155):115-9. 2) Joya SL, Anai WagonerJ, DW, James L, Mikey JR, [facility] ED: MYD88 L265P somatic mutation: its usefulness in the differential diagnosis of bone marrow involvement by B-cell lymphoproliferative disorders. Am J Clin Pathol. 2013. 140(3):387-94. 3) Obi SP, Spencer L, Brooks G, et al. MYD88 L265P somatic mutation in Waldenstrom's macroglobulinemia. N Engl J Med. 2012. 367(0)644-33. 4) Gage WagonerQ, Juan J MADDEN, Ariel LL, Tanya K. Toll-like receptors and cancer: MYD88 mutation and inflammation. Front Immunol. 2014 May 28;367(5):1-10. 5) Nery X, Francy W, Maykel Q, et al. MYD88 L265P Mutation in Lymphoid Malignancies. Cancer Res. 2018. 78(70):6241-00. Disclaimer: This test was developed and its performance characteristics determined by [facility]'s Pathology and Laboratory Medicine Department. It has not been cleared or approved by the FDA. [facility]'s Pathology and Laboratory Medicine Department is regulated under CLIA as certified to perform high-complexity testing. This test is used for clinical purposes. It should not be regarded as investigational or for research. Test performed at [facility], [address] [place] [address]. CLIA Number: [id number] Interpretation performed by Natalee Bolanos, PhD, HCLD Performed By: #### 1 5061-5 #### [facility] CLIA [id number] [address] [place] [address] [place] [address] [place] Monocytes Auto (Bld) [#/Vol] Ordered By: Valentin Abhyankar on 07-15-2025 Monocytes (Bld) [#/Vol] 0.65 10*3/uL <0.87 [facility] Monocytes/100 WBC Auto (Bld) Ordered By: Valentin Abhyankar on 07-15-2025 Monocytes/100 WBC (Bld) 10.4 % [facility] Neutrophils Auto (Bld) [#/Vo l]Ordered By: Valentin Abhyankar on 07-15-2025 Neutrophils (Bld) [#/Vol] 4.62 10*3/uL 1.45-7.50 [facility] Neutrophils/100 WBC Auto (Bl d)Ordered By: Valentin Abhyankar on 07-15-2025 Neutrophils/100 WBC (Bld) 73.5 % [facility] No Panel InformationOrdered By: Valentin Abhyankar on 07-15-2025 Folate 17.5 ng/mL >4.7 [facility] MYD88 L265P Mutation See comment [facility] Comment on above: 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 ANALYSISLaboratory Accession Number: [id number] Type: Peripheral BloodResult:MYD88 L265P (c.794T>C, p.Gcq987Qrf) detected with variant allelefraction (vaf) 0.98%.Interpretation:The MYD88 missense variant L265P (c.794T>C, p.Xzf647Rbt) is present.L265P is highly characteristic of lymphoplasmacyticlymphoma/Waldenstrom's macroglobulinemia, where it is found in >90% ofcases. This abnormality may also be found in diffuse large B-celllymphomas and in a small percentage of other small B-cell neoplasmsincluding chronic lymphocytic leukemia and marginal zone lymphomas.Clinical and pathologic correlation is suggested.Methodology:DNA extracted from the specimen is interrogated for the presence orabsence of the L265P (c.794T>C, p.Smr697Ted; g.65725666; [id number])variant (mutation) in MYD88 gene (NM_002468.4) using droplet digitalpolymerase chain reaction (PCR). Droplet digital PCR includespartitioning of DNA into droplets, droplet independent PCR,interrogation using allele specific hydrolysis probes, and analysis ofdroplets using Poisson distribution to calculate the copy number ofMYD88 L265P and wild-type MYD88. The reference genome used [id number]/hg38.Limitations:This test is designed to detect the L265P variant in the MYD88 gene.Uncommon variants or single nucleotide polymorphisms may affectbinding of probes or primers and may rarely result in false negative,false positive, or indeterminate results. Other variants in MYD88 willnot be identified by this test. The lower limit of detection of thisassay is approximately 0.5% variant allele fraction (vaf) for tebFXU54 L265P variant. Although vaf is provided for reference, thisvalue should be interpreted with caution as this test is intended forqualitative purposes and is not validated as a quantitative test. SxuMRB86 L265P result cannot be used on a standalone basis for diagnosisof lymphoplasmacytic lymphoma and needs to be considered in thecontext of clinical and morphologic presentation.References:1) Nikkie LOPEZ, Cristhian ADAMS, Hannah R, et al. Oncogenically active CLI56isuiksdel in human lymphoma. Nature 2011. 470(7529):115-9.2) Joya RIVAS, Anai WagonerJ, Warden INFANTE, James L, Mikey Nash ALLEN ED: [id number] somatic mutation: its usefulness in the differential diagnosisof bone marrow involvement by B-cell lymphoproliferative disorders. AmJ Clin Pathol. 2013. 140(3):387-94.3) Obi SP, Spencer L, Todd G, et al. 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 N Engl J Med. 2012. 367(2)778-33.4) Almonte JQ, Juan J YS, Ariel LL, Tanya K. Toll-like receptorsand cancer: MYD88 mutation and inflammation. Front Immunol. 2014 ;367(5):1-10.5) Gabriel X, Li W, Maykel Q, et al. 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 Cancer Res. 2018. 78(10):5056-.Disclaimer:This test was developed and its performance characteristics determinedby [facility]'s [facility]ology and Laboratory Medicine Department. Ithas not been cleared or approved by the FDA. [facility] is regulated under CLIAas certified to perform high-complexity testing. This test is used forclinical purposes. It should not be regarded as investigational or forresearch.Test performed at [facility], [address] [place] [address]. CLIA Number: [id number] performed by Natalee Bolanos, PhD, [facility] Nucleated RBC Auto (Bld) [#/ Vol]Ordered By: Valentin Leonard on 07-15-2025 Nucleated RBC (Bld) [#/Vol] 10*3/uL <0.01 [facility] Nucleated erythrocytes [Pres ence] in Blood by Automated countOrdered By: Valentin Leonard on 07-15-2025 Nucleated RBC Auto Ql (Bld) 0.0 /100{WBC} [facility] Platelet mean volume Auto (B ld) [Entitic vol]Ordered By: Valentin Leonard on 07-15-2025 Platelet mean volume (Bld) [Entitic vol] 9.9 fL 9.0-12.7 [facility] Platelets Auto (Bld) [#/Vol] Ordered By: Valentin Leonard on 07-15-2025 Platelets (Bld) [#/Vol] 295 10*3/uL 150-400 [facility] Protein [Mass/volume] in Ser um or PlasmaOrdered By: Valentin Leonard on 07-15-2025 Protein [Mass/Vol] 5.9 g/dL Low 6.3-8.0 [facility] RBC Auto (Bld) [#/Vol]Ordere d By: Valentin Leonard on 07-15-2025 RBC (Bld) [#/Vol] 3.09 10*6/uL Low 3.90-5.20 [facility] Serum or plasma anion gap de terminationOrdered By: Valentin Leonard on 07-15-2025 Anion gap [Moles/Vol] 10 mmol/L 8-15 [facility] Serum or plasma erythropoiet in (EPO) measurement (units/volume)Ordered By: Valentin Leonard on 07-15-2025 Erythropoietin (EPO) Qn 26.4 mIU/mL High 2.6-18.5 [facility] Vit B12 SerPl-mCncon 025 Cobalamin (Vitamin B12) [Mass/Vol] 1457 pg/mL High 232-1245 [facility] Comment on above: Order Comment: Speci men Type: BLOOD SPECIMEN Ordering Facility: [facility] Address: [address] [place] [address] Performed By: #### 5 0190-8, 2284-8, 2132-9, 2276-4 #### [facility] CLIA [id number] [address] [place] [address] [place] CNPDena 07-10-2025 CNPN Telephone (NCCAP) -------- LASHAUN JOAQUIN ([id number]) 1940 F Date Time Provider Department 07/10/25 [...] Hathaway's office Please return the call at [phone] KERRY Menendez Felicia, RN 07/10/2025 12:[address] Hahtaway's office and spoke with Dayana. I informed [...] Status:Closed by YOLANDA COBIAN on 07/10/25 Normal [facility] Albumin [Mass/volume] in Ser um or PlasmaOrdered By: Nathan Hathaway on 07-08-2025 Albumin [Mass/Vol] 3.33 g/dL Low 3.43-5.41 [facility] CBC W Auto Differential pane l (Bld)on 07-08-2025 Basophils (Bld) [#/Vol] 0.05 10*3/uL Normal <0.11 [facility] Comment on above: Order Comment: Speci men Type: BLOOD SPECIMEN Ordering Facility: [facility] Address: [address] [place] [address] Performed By: #### 1 5061-5 #### [facility] CLIA [id number] [address] [place] [address] [place] Basophils/100 WBC (Bld) 0.9 % Normal [facility] Comment on above: Order Comment: Speci men Type: BLOOD SPECIMEN Ordering Facility: [facility] Address: [address] [place] [address] Performed By: #### 1 5061-5 #### [facility] CLIA [id number] [address] [place] [address] [place] Differential cell count method Nom (Bld) Auto Normal [facility] Comment on above: Order Comment: Speci men Type: BLOOD SPECIMEN Ordering Facility: [facility] Address: [address] [place] [address] Performed By: #### 1 5061-5 #### [facility] CLIA [id number] [address] [place] [address] [place] Eosinophils (Bld) [#/Vol] 0.18 10*3/uL Normal <0.46 [facility] Comment on above: Order Comment: Speci men Type: BLOOD SPECIMEN Ordering Facility: [facility] Address: [address] [place] [address] Performed By: #### 1 5061-5 #### [facility] CLIA [id number] [address] [place] [address] [place] Eosinophils/100 WBC (Bld) 3.3 % Normal [facility] Comment on above: Order Comment: Speci men Type: BLOOD SPECIMEN Ordering Facility: [facility] Address: [address] [place] [address] Performed By: #### 1 5061-5 #### [facility] CLIA [id number] [address] [place] [address] [place] Erythrocyte distribution width (RBC) [Ratio] 13.5 % Normal 11.5-15.0 [facility] Comment on above: Order Comment: Speci men Type: BLOOD SPECIMEN Ordering Facility: [facility] Address: [address] [place] [address] Performed By: #### 1 5061-5 #### [facility] CLIA [id number] [address] [place] [address] [place] Hematocrit (Bld) [Volume fraction] 27.8 % Low 36.0-46.0 [facility] Comment on above: Order Comment: Speci men Type: BLOOD SPECIMEN Ordering Facility: [facility] Address: [address] [place] [address] Performed By: #### 1 5061-5 #### [facility] CLIA [id number] [address] [place] [address] [place] Hemoglobin (Bld) [Mass/Vol] 9.0 g/dL Low 11.5-15.5 [facility] Comment on above: Order Comment: Speci men Type: BLOOD SPECIMEN Ordering Facility: [facility] Address: [address] [place] [address] Performed By: #### 1 5061-5 #### [facility] CLIA [id number] [address] [place] [address] [place] Immature granulocytes (Bld) [#/Vol] 0.03 10*3/uL Normal <0.10 [facility] Comment on above: Order Comment: Speci men Type: BLOOD SPECIMEN Ordering Facility: [facility] Address: [address] [place] [address] Performed By: #### 1 5061-5 #### [facility] CLIA [id number] [address] [place] [address] [place] Immature granulocytes/100 WBC (Bld) 0.5 % Normal [facility] Comment on above: Order Comment: Speci men Type: BLOOD SPECIMEN Ordering Facility: [facility] Address: [address] [place] [address] Performed By: #### 1 5061-5 #### [facility] CLIA [id number] [address] [place] [address] [place] Lymphocytes (Bld) [#/Vol] 0.87 10*3/uL Low 1.00-4.00 [facility] Comment on above: Order Comment: Speci men Type: BLOOD SPECIMEN Ordering Facility: [facility] Address: [address] [place] [address] Performed By: #### 1 5061-5 #### [facility] CLIA [id number] [address] [place] [address] [place] Lymphocytes/100 WBC (Bld) 15.9 % Normal [facility] Comment on above: Order Comment: Speci men Type: BLOOD SPECIMEN Ordering Facility: [facility] Address: [address] [place] [address] Performed By: #### 1 5061-5 #### [facility] CLIA [id number] [address] [place] [address] [place] MCH (RBC) [Entitic mass] 28.8 pg Normal 26.0-34.0 [facility] Comment on above: Order Comment: Speci men Type: BLOOD SPECIMEN Ordering Facility: [facility] Address: [address] [place] [address] Performed By: #### 1 5061-5 #### [facility] CLIA [id number] [address] [place] [address] [place] MCHC (RBC) [Mass/Vol] 32.4 g/dL Normal 30.5-36.0 [facility] Comment on above: Order Comment: Speci men Type: BLOOD SPECIMEN Ordering Facility: [facility] Address: [address] [place] [address] Performed By: #### 1 5061-5 #### [facility] CLIA [id number] [address] [place] [address] [place] MCV (RBC) [Entitic vol] 89.1 fL Normal 80.0-100.0 [facility] Comment on above: Order Comment: Speci men Type: BLOOD SPECIMEN Ordering Facility: [facility] Address: [address] [place] [address] Performed By: #### 1 5061-5 #### [facility] CLIA [id number] [address] [place] [address] [place] Monocytes (Bld) [#/Vol] 0.61 10*3/uL Normal <0.87 [facility] Comment on above: Order Comment: Speci men Type: BLOOD SPECIMEN Ordering Facility: [facility] Address: [address] [place] [address] Performed By: #### 1 5061-5 #### [facility] CLIA [id number] [address] [place] [address] [place] Monocytes/100 WBC (Bld) 11.2 % Normal [facility] Comment on above: Order Comment: Speci men Type: BLOOD SPECIMEN Ordering Facility: [facility] Address: [address] [place] [address] Performed By: #### 1 5061-5 #### [facility] CLIA [id number] [address] [place] [address] [place] Neutrophils (Bld) [#/Vol] 3.72 10*3/uL Normal 1.45-7.50 [facility] Comment on above: Order Comment: Speci men Type: BLOOD SPECIMEN Ordering Facility: [facility] Address: [address] [place] [address] Performed By: #### 1 5061-5 #### [facility] CLIA [id number] [address] [place] [address] [place] Neutrophils/100 WBC (Bld) 68.2 % Normal [facility] Comment on above: Order Comment: Speci men Type: BLOOD SPECIMEN Ordering Facility: [facility] Address: [address] [place] [address] Performed By: #### 1 5061-5 #### [facility] CLIA [id number] [address] [place] [address] [place] Nucleated RBC (Bld) [#/Vol] 10*3/uL Normal <0.01 [facility] Comment on above: Order Comment: Speci men Type: BLOOD SPECIMEN Ordering Facility: [facility] Address: [address] [place] [address] Performed By: #### 1 5061-5 #### [facility] [facility] CLIA [id number] [address] [place] [address] [place] Nucleated RBC/100 WBC (Bld) [Ratio] 0.0 /100 WBC Normal [facility] Comment on above: Order Comment: Speci men Type: BLOOD SPECIMEN Ordering Facility: [facility] Address: [address] [place] [place] [address] Performed By: #### 1 5061-5 #### [facility] CLIA [id number] [address] [place] [address] [place] Platelet mean volume (Bld) [Entitic vol] 9.5 fL Normal 9.0-12.7 [facility] Comment on above: Order Comment: Speci men Type: BLOOD SPECIMEN Ordering Facility: [facility] Address: [address] [place] [address] Performed By: #### 1 5061-5 #### [facility] CLIA [id number] [address] [place] [address] [place] Platelets (Bld) [#/Vol] 275 10*3/uL Normal 150-400 [facility] Comment on above: Order Comment: Speci men Type: BLOOD SPECIMEN Ordering Facility: [facility] Address: [address] [place] [address] Performed By: #### 1 5061-5 #### [facility] CLIA [id number] [address] [place] [address] [place] RBC (Bld) [#/Vol] 3.12 10*6/uL Low 3.90-5.20 [facility] Comment on above: Order Comment: Speci men Type: BLOOD SPECIMEN Ordering Facility: [facility] Address: [address] [place] [address] Performed By: #### 1 5061-5 #### [facility] CLIA [id number] [address] [place] [address] [place] WBC (Bld) [#/Vol] 5.46 10*3/uL Normal 3.70-11.00 [facility] Comment on above: Order Comment: Speci men Type: BLOOD SPECIMEN Ordering Facility: [facility] Address: [address] [place] [address] Performed By: #### 1 5061-5 #### [facility] CLIA [id number] [address] [place] [address] [place] CNOVSPon 07-08-2025 CNOVSP Visit (SP) Office ([place]) -------- JEMALEMELIAN ([id number]) 1940 F Date Time Provider Department 07/08/25 [...] HISTORY Proble (more content not included)... Normal [facility]08-20[facility] -------- LASHAUN JOAQUIN ([id number]) 1940 F Date Time Provider Department 07/08/25 PAOLO CASILLAS [facility] During your visit today, we recorded the following information about you: Kayla Arriaga 07/08/2025 11:24 AM Signed Please call Her daughter Marianna with today's lab results. [phone] Yolanda Cobian RN 07/10/2025 9:17 AM Signed [...] Status:Closed by YOLANDA COBIAN on 07/10/25 Normal [facility] Comprehensive metabolic 2000 panelon 07-08-2025 Albumin [Mass/Vol] 3.6 g/dL Low 3.9-4.9 [facility] Comment on above: Order Comment: Speci men Type: BLOOD SPECIMEN Ordering Facility: [facility] Address: [address] [place] [address] Performed By: #### 2 4323-8 #### [facility] CLIA [id number] [address] [place] [address] [place] ALP [Catalytic activity/Vol] 48 U/L Normal 34-123 [facility] Comment on above: Order Comment: Speci men Type: BLOOD SPECIMEN Ordering Facility: [facility] Address: [address] [place] [address] Performed By: #### 2 4323-8 #### [facility] CLIA [id number] [address] [place] [address] [place] ALT [Catalytic activity/Vol] 13 U/L Normal 7-38 [facility] Comment on above: Order Comment: Speci men Type: BLOOD SPECIMEN Ordering Facility: [facility] Address: [address] [place] [address] Performed By: #### 2 4323-8 #### [facility] CLIA [id number] [address] [place] [address] [place] Anion gap [Moles/Vol] 11 mmol/L Normal 8-15 [facility] Comment on above: Order Comment: Speci men Type: BLOOD SPECIMEN Ordering Facility: [facility] Address: [address] [place] [address] Performed By: #### 2 4323-8 #### [facility] CLIA [id number] [address] [place] [address] [place] AST [Catalytic activity/Vol] 22 U/L Normal 13-35 [facility] Comment on above: Order Comment: Speci men Type: BLOOD SPECIMEN Ordering Facility: [facility] Address: [address] [place] [address] Performed By: #### 2 4323-8 #### [facility] CLIA [id number] [address] [place] [address] [place] Bilirubin [Mass/Vol] 0.3 mg/dL Normal 0.2-1.3 [facility] Comment on above: Order Comment: Speci men Type: BLOOD SPECIMEN Ordering Facility: [facility] Address: [address] [place] [address] Performed By: #### 2 4323-8 #### [facility] CLIA [id number] [address] [place] [address] [place] Calcium [Mass/Vol] 8.9 mg/dL Normal 8.5-10.2 [facility] Comment on above: Order Comment: Speci men Type: BLOOD SPECIMEN Ordering Facility: [facility] Address: [address] [place] [address] Performed By: #### 2 4323-8 #### [facility] CLIA [id number] [address] [place] [address] [place] Chloride [Moles/Vol] 106 mmol/L Normal 98-107 [facility] Comment on above: Order Comment: Speci men Type: BLOOD SPECIMEN Ordering Facility: [facility] Address: [address] [place] [address] Performed By: #### 2 4323-8 #### [facility] CLIA [id number] [address] [place] [address] [place] CO2 [Moles/Vol] 24 mmol/L Normal 22-30 [facility] Comment on above: Order Comment: Speci men Type: BLOOD SPECIMEN Ordering Facility: [facility] Address: [address] [place] [address] Performed By: #### 2 4323-8 #### [facility] CLIA [id number] [address] [place] [address] [place] Creatinine [Mass/Vol] 1.65 mg/dL High 0.58-0.96 [facility] Comment on above: Order Comment: Preet patino Type: BLOOD SPECIMEN Ordering Facility: [facility] Address: [address] [place] [address] Performed By: #### 2 4323-8 #### [facility] CLIA [id number] [address] [place] [address] [place] eGFRcr SerPlBld CKD-EPI 2020 31 mL/min/1.73m??? Low >=60 [facility] Comment on above: Order Comment: Preet patino Type: BLOOD SPECIMEN Ordering Facility: [facility] Address: [address] [place] [address] Result Comment: Shoshana mated Glomerular Filtration Rate [...] GFR. Performed By: #### 2 4323-8 #### [facility] CLIA [id number] [address] [place] [address] [place] Glucose [Mass/Vol] 100 mg/dL High 74-99 [facility] Comment on above: Order Comment: Preet patino Type: BLOOD SPECIMEN Ordering Facility: [facility] Address: [address] [place] [address] Result Comment: [place] Diabetes Association (ADA) provides guidance for cutoff [...] Medical Care in Diabetes 2016, [place] Diabetes Association. Diabetes Care. 2016.39(Suppl 1). Performed By: #### 2 4323-8 #### [facility] CLIA [id number] [address] [place] [address] [place] Potassium [Moles/Vol] 5.3 mmol/L High 3.7-5.1 [facility] Comment on above: Order Comment: Speci men Type: BLOOD SPECIMEN Ordering Facility: [facility] Address: [address] [place] [address] Performed By: #### 2 4323-8 #### [facility] CLIA [id number] [address] [place] [address] [place] Protein [Mass/Vol] 5.8 g/dL Low 6.3-8.0 [facility] Comment on above: Order Comment: Sarathi men Type: BLOOD SPECIMEN Ordering Facility: [facility] Address: [address] [place] [address] Performed By: #### 2 4323-8 #### [facility] CLIA [id number] [address] [place] [address] [place] Sodium [Moles/Vol] 141 mmol/L Normal 136-144 [facility] Comment on above: Order Comment: Speci men Type: BLOOD SPECIMEN Ordering Facility: [facility] Address: [address] [place] [address] Performed By: #### 2 4323-8 #### [facility] CLIA [id number] [address] [place], [place] [address] [place] Urea nitrogen [Mass/Vol] 27 mg/dL High 7-21 [facility] Comment on above: Order Comment: Speci men Type: BLOOD SPECIMEN Ordering Facility: [facility] Address: [address] [place] [address] Performed By: #### 2 4323-8 #### [facility] CLIA [id number] [address] [place] [address] [place] Glomerular filtration rate [ Volume Rate/Area] in Serum, Plasma or Blood by CreatinineOrdered By: Nathan Hathaway on 07-08-2025 Glomerular filtration rate [Volume Rate/Area] in Serum, Plasma or Blood by Creatinine 31 mL/min/1.73m??? Low >=60 [facility] Comment on above: Estimated Glomerular Filtration Rate [...] monoclonal gammopathy. Clinical correlation is necessary. Normal [facility] Comment on above: Order Comment: Speci men Type: BLOOD SPECIMEN Ordering Facility: [facility] Address: [address] [place] [address] Performed By: #### 1 5061-5 #### [facility] CLIA [id number] [address] [place] [address] [place] MPA RESULT A poorly defined reg ion of restricted mobility is present that may represent an M protein. Abnormal No M protein is identified. [facility] Comment on above: Order Comment: Speci men Type: BLOOD SPECIMEN Ordering Facility: [facility] Address: [address] [place] [address] Performed By: #### 1 5061-5 #### [facility] CLIA [id number] [address] [place] [address] [place] STAFF REVIEW (MPA) Reviewed by Dr. Matty David MD Normal [facility] Comment on above: Order Comment: Speci men Type: BLOOD SPECIMEN Ordering Facility: [facility] Address: [address] [place] [address] Performed By: #### 1 5061-5 #### [facility] CLIA [id number] [address] [place] [address] [place] IMMUNOGLOBULINS,IGG,IGA,IGMo n 07-08-2025 IgA [Mass/Vol] 64 mg/dL Low 70-400 [facility] Comment on above: Order Comment: Speci men Type: BLOOD SPECIMEN Ordering Facility: [facility] Address: [address] [place] [address] Performed By: #### S ERIMM #### [facility] CLIA [id number] [address] [place] [address] [place] IgG [Mass/Vol] 280 mg/dL Low 700-1600 [facility] Comment on above: Order Comment: Speci men Type: BLOOD SPECIMEN Ordering Facility: [facility] Address: [address] [place] [address] Performed By: #### S ERIMM #### [facility] CLIA [id number] [address] [place] [address] [place] IgM [Mass/Vol] 317 mg/dL High 40-230 [facility] Comment on above: Order Comment: Speci men Type: BLOOD SPECIMEN Ordering Facility: [facility] Address: [address] [place] [address] Performed By: #### S ERIMM #### [facility] CLIA [id number] [address] [place], [place] [address] [place] IgA [Mass/volume] in Serum o r PlasmaOrdered By: Fanny Bedoya on 07-08-2025 IgA [Mass/Vol] 64 mg/dL Low 70-400 [facility] IgG [Mass/volume] in Serum o r PlasmaOrdered By: Fanny Alvarengaod on 07-08-2025 IgG [Mass/Vol] 280 mg/dL Low 700-1600 [facility] IgM [Mass/volume] in Serum o r PlasmaOrdered By: Fanny Ethan on 07-08-2025 IgM [Mass/Vol] 317 mg/dL High 40-230 [facility] Immunoglobulin light chains. kappa.free [Mass/volume] in SerumOrdered By: Nathan Hathaway on 07-08-2025 Immunoglobulin light chains.kappa.free (S) [Mass/Vol] 300.9 mg/L High 3.3-19.4 [facility] Comment on above: Rarely, increased se rum free light chains levels may not be detected or accurately quantified due to prozone phenomenon or in high viscosity samples using this immunoturbidimetric assay. Correlation with other laboratory results and clinical findings is recommended. The [place] Free Light Chain was performed using the Binding Site Optilite immunoturbidimetric method. Result obtained with different assay methods or kits cannot be used interchangeably. Immunoglobulin light chains. kappa.free/Immunoglobulin light chains.lambda.free [MassOrdered By: Nathan Hathaway on 07-08-2025 Immunoglobulin light chains.kappa.free/Immu noglobulin light chains.lambda.free (S) [Mass ratio] 12.64 High 0.26-1.65 [facility] Immunoglobulin light chains. lambda.free [Mass/volume] in Serum or PlasmaOrdered By: Nathan Hathaway on 07-08-2025 Immunoglobulin light chains.lambda.free [Mass/Vol] 23.8 mg/L 5.7-26.3 [facility] Comment on above: Rarely, increased se rum [...] chains.kappa.free (S) [Mass/Vol] 300.9 mg/L High 3.3-19.4 [facility] Comment on above: Order Comment: Speci carey Type: BLOOD SPECIMEN Ordering Facility: [facility] Address: [address] [place] [address] Result Comment: Rare ly, increased serum free light chains levels may not be detected or accurately quantified due to prozone phenomenon or in high viscosity samples using this immunoturbidimetric assay. Correlation with other laboratory results and clinical findings is recommended. [place] Free Light Chain was performed using the Binding Site Optilite immunoturbidimetric method. Result obtained with different assay methods or kits cannot be used interchangeably. Performed By: #### K LFRS #### [facility] CLIA [id number] [address] [place] [address] [place] Immunoglobulin light chains.kappa/Immunoglo bulin light chains.lambda (S) [Mass ratio] 12.64 High 0.26-1.65 [facility] Comment on above: Order Comment: Speci [facility] Type: BLOOD SPECIMEN Ordering Facility: [facility] Address: [address] [place] [address] Performed By: #### K LFRS #### [facility] CLIA [id number] [address] [place] [address] [place] Immunoglobulin light chains.lambda.free [Mass/Vol] 23.8 mg/L Normal 5.7-26.3 [facility] Comment on above: Order Comment: [facility] Type: BLOOD SPECIMEN Ordering Facility: [facility] Address: [address] [place] [address] Result Comment: Rare ly, increased serum free [...] interchangeably. Performed By: #### K LFRS #### [facility] CLIA [id number] [facility] [place] [address] [place] Laboratory - Chemistry and C hemistry - challengeOrdered By: Nathan Hathaway on 07-08-2025 Albumin [Mass/Vol] 3.6 g/dL Low 3.9-4.9 [facility] ALP [Catalytic activity/Vol] 48 U/L 34-123 [facility] ALT [Catalytic activity/Vol] 13 U/L 7-38 [facility] AST [Catalytic activity/Vol] 22 U/L 13-35 [facility] Bilirubin [Mass/Vol] 0.3 mg/dL 0.2-1.[address] [facility] Calcium [Mass/Vol] 8.9 mg/dL 8.5-10.2 [facility] Chloride [Moles/Vol] 106 mmol/L 98-[address] [facility] CO2 [Moles/Vol] 24 mmol/L 22-30 [facility] Creatinine [Mass/Vol] 1.65 mg/dL High 0.58-0.96 [facility] Glucose [Mass/Vol] 100 mg/dL High 74-99 [facility] Comment on above: The [place] Diabete s Association (ADA) provides guidance for [...] Medical Care in Diabetes 2016, [place] Diabetes Association. Diabetes Care. 2016.39(Suppl 1). Potassium [Moles/Vol] 5.3 mmol/L High 3.7-5.1 [facility] Protein [Mass/Vol] 0.00 g/dL <=0.00 [facility] Sodium [Moles/Vol] 141 mmol/L 136-144 [facility] Urea nitrogen [Mass/Vol] 27 mg/dL High 7-21 [facility] No Panel InformationOrdered By: Nathan Hathaway on 07-08-2025 Immunofixation Interpretation [facility] Leuk/Lymph Sign Pathologist (Misc) Reviewed by Dr. Jennifer David MD [facility] Miscellaneous Test 6 See comment [facility] Comment on above: Not Applicable. Miscellaneous Test Comment Reviewed by Dr. Jennifer David MD [facility] Protein Electrophoresis Interpret [facility] Protein Electrophoresis Note No definitive M protein is identified on protein electrophoresis. No definitive M protein is identified on protein electrophor esis. [facility] Serum Immunofixation Abnormal No M protein is identified. [facility] PROTEIN ELECTROPHORESIS SERU M (P)on 07-08-2025 Albumin [Mass/Vol] 3.33 g/dL Low 3.43-5.41 [facility] Comment on above: Order Comment: Speci men Type: BLOOD SPECIMEN Ordering Facility: [facility] Address: [address] [place] [address] Performed By: #### 1 5061-5 #### [facility] CLIA [id number] [address] [place] [address] [place] Alpha 1 globulin Elph [Mass/Vol] 0.42 g/dL Normal 0.18-0.43 [facility] Comment on above: Order Comment: Speci men Type: BLOOD SPECIMEN Ordering Facility: [facility] Address: [address] [place] [address] Performed By: #### 1 5061-5 #### [facility] CLIA [id number] [address] [place] [address] [place] Alpha 2 globulin Elph [Mass/Vol] 0.86 g/dL Normal 0.42-0.98 [facility] Comment on above: Order Comment: Speci men Type: BLOOD SPECIMEN Ordering Facility: [facility] Address: [address] [place] [address] Performed By: #### 1 5061-5 #### [facility] CLIA [id number] [address] [place] [address] [place] Beta globulin Elph [Mass/Vol] 0.53 g/dL Low 0.61-1.17 [facility] Comment on above: Order Comment: Speci men Type: BLOOD SPECIMEN Ordering Facility: [facility] Address: [address] [place] [address] Performed By: #### 1 5061-5 #### [facility] CLIA [id number] [address] [place] [address] [place] Gamma globulin Elph [Mass/Vol] 0.37 g/dL Low 0.53-1.51 [facility] Comment on above: Order Comment: Speci men Type: BLOOD SPECIMEN Ordering Facility: [facility] Address: [address] [place] [address] Performed By: #### 1 5061-5 #### [facility] CLIA [id number] [address] [place] [address] STATES OF [facility] INTERPRETATION COMMENT FOR PROTEIN ELECTROPHORESIS Hypogammaglobulinemia is present, which can be seen in the setting of monoclonal gammopathy. If clinically indicated, monoclonal protein analysis and serum free light chain analysis are suggested to evaluate further for monoclonal gammopathy. Normal [facility] Comment on above: Order Comment: Preet patino Type: BLOOD SPECIMEN Ordering Facility: [facility] Address: [address] [place] [address] Performed By: #### 1 5061-5 #### [facility] CLIA [id number] [address] [place] [address] [place] M-PROTEIN LOCATION Normal [facility] Comment on above: Order Comment: Sarathi carey Type: BLOOD SPECIMEN Ordering Facility: [facility] Address: [address] [place] [address] Result Comment: Not Applicable. Performed By: #### 1 5061-5 #### [facility] CLIA [id number] [address] [place] [address] [place] Protein Fractions [Interp] No definitive M protein is identified on protein electrophoresis. Normal No definitive M protein is identified on protein electrophor esis. [facility] Comment on above: Order Comment: Speci men Type: BLOOD SPECIMEN Ordering Facility: [facility] Address: [address] [place] [address] Performed By: #### 1 5061-5 #### [facility] CLIA [id number] [address] [place] [address] [place] Protein.monoclonal Elph [Mass/Vol] 0.00 g/dL Normal <=0.00 [facility] Comment on above: Order Comment: Speci men Type: BLOOD SPECIMEN Ordering Facility: [facility] Address: [address] [place] [address] Performed By: #### 1 5061-5 #### [facility] CLIA [id number] [address] [place] [address] [place] SPE STAFF REVIEW Reviewed by Dr. Matty David MD [facility] Comment on above: Order Comment: Speci men Type: BLOOD SPECIMEN Ordering Facility: [facility] Address: [address] [place] [address] Performed By: #### 1 5061-5 #### [facility] CLIA [id number] [address] [place] [address] [place] Prot SerPl-mCncon 07-08-2025 Protein [Mass/Vol] 5.5 g/dL Low 6.3-8.0 [facility] Comment on above: Order Comment: Speci men Type: BLOOD SPECIMEN Ordering Facility: [facility] Address: [address] [place] [address] Performed By: #### 2 885-2 #### [facility] CLIA [id number] [address] [place] [address] [place] Protein [Mass/volume] in Ser um or PlasmaOrdered By: Fanny Bedoya on 07-08-2025 Protein [Mass/Vol] 5.5 g/dL Low 6.3-8.0 [facility] Serum or plasma alpha 1 glob ulin measurement by electrophoresis (mass/volume)Ordered By: Nathan Hathaway on 07-08-2025 Alpha 1 globulin Elph [Mass/Vol] 0.42 g/dL 0.18-0.43 [facility] Serum or plasma alpha 2 glob ulin measurement by electrophoresis (mass/volume)Ordered By: Nathan Hathaway on 07-08-2025 Alpha 2 globulin Elph [Mass/Vol] 0.86 g/dL 0.42-0.98 [facility] Serum or plasma anion gap de terminationOrdered By: Nathan Hathaway on 07-08-2025 Anion gap [Moles/Vol] 11 mmol/L 8-15 [facility] Serum or plasma beta globuli n measurement by electrophoresis (mass/volume)Ordered By: Nathan Hathaway on 07-08-2025 Beta globulin Elph [Mass/Vol] 0.53 g/dL Low 0.61-1.17 [facility] Serum or plasma gamma globul in measurement by electrophoresis (mass/volume)Ordered By: Nathan Hathaway on 07-08-2025 Gamma globulin Elph [Mass/Vol] 0.37 g/dL Low 0.53-1.51 [facility] CNPNon 07-06-2025 DANIELAN Telephone (JONATHON) -------- LASHAUN JOAQUIN ([id number]) 1940 F Date Time Provider Department 07/06/25 [...] Date Reviewed: 11/07/2023 Reviewed by: Paolo Casillas APRN.DENTISTRY TEACHER - Fully Assessed Reason for Visit: Lab Orders [1688] Cmt: nt Primary Visit Diagnosis:Abnormal SPEP [R77.8] Order(s):COMPLETE BLOOD COUNT AND DIFFERENTIAL [SQCBCDIF] Order #: [id number] FUTURE COMPREHENSIVE METABOLIC PANEL [SQCMP] Order #: [id number] FUTURE PROTEIN ELECTROPHORESIS SERUM W/INTERP [SQSEPG] Order #: [id number] FUTURE MONOCLONAL PROTEIN, SERUM (BLOOD) [SQSERMPA] Order #: [id number] FUTURE Prescriptions as of 07/06/2025 - carvedilol [...] Status:Closed by FANNY BEDOYA on 07/06/25 Normal [facility] Microalbumin [Mass/volume] i n UrineOrdered By: Nathan Hathaway on 06-24-2025 Albumin DL <= 20 mg/L (U) [Mass/Vol] 20.1 mg/dL <=30.0 [facility] No Panel InformationOrdered By: Nathan Hathaway on 06-24-2025 Urine Random Creatinine 84.52 mg/dL 20.00-300.0 0 [facility] Urine microalbumin/creatinin e mass ratioOrdered By: Nathan Hathaway on 06-24-2025 Albumin/Creatinine DL <= 20 mg/L (U) [Mass ratio] 237.8 mg/g High 0.0-29.9 [facility] Comment on above: NO MICROALBUMINURIA 0-29 MG/GCLINICAL MICROALBUMINURIA 30-300 MG/GMACROALBUMINURIA >300 MG/G Albumin [Mass/volume] in Ser um or PlasmaOrdered By: Nathan Hathaway on 06-23-2025 Albumin [Mass/Vol] 3.2 g/dL 2.9-4.4 [facility] Basophils Auto (Bld) [#/Vol] Ordered By: Nathan Hathaway on 06-23-2025 Basophils (Bld) [#/Vol] 0.0 10 3/uL 0.0-0.1 [facility] Basophils/100 WBC Auto (Bld) Ordered By: Nathan Hathaway on 06-23-2025 Basophils/100 WBC (Bld) 0.7 % 0.2-2.0 [facility] Cholesterol in LDL Calc [Mas s/Vol]Ordered By: Nathan Hathaway on 06-23-2025 Cholesterol in LDL [Mass/Vol] 60.2 mg/dL [facility] Comment on above: <100 mg/dl [id number] 0-129 mg/dl NEAR OR ABOVE [id number] mg/dl BORDERLINE [id number] mg/dl HIGH>190 mg/dl VERY HIGH Cholesterol in VLDL Calc [Ma ss/Vol]Ordered By: Nathan Hathaway on 06-23-2025 Cholesterol in VLDL [Mass/Vol] 17.8 mg/dL [facility] Eosinophils/100 WBC Auto (Bl d)Ordered By: Nathan Hathaway on 06-23-2025 Eosinophils/100 WBC (Bld) 2.7 % 0.9-7.0 [facility] Erythrocyte distribution wid th Auto (RBC) [Ratio]Ordered By: Nathan Hathaway on 06-23-2025 Erythrocyte distribution width (RBC) [Ratio] 13.8 % 11.0-15.0 [facility] Globulin Calc (S) [Mass/Vol] Ordered By: Nathan Hathaway 06-23-2025 Globulin (S) [Mass/Vol] 3.3 g/dL [facility] Glomerular filtration rate ( GFR) estimation in non- AmericanOrdered By: Nathan Hathaway on 06-23-2025 GFR/1.73 sq M.predicted among non-blacks MDRD (S/P/Bld) [Vol rate/Area] 35 mL/min/{1.73_m2} Low >=60 mL/min/1.73 m 2 [facility] Hematocrit Auto (Bld) [Volum e fraction]Ordered By: Nathan Hathaway 06-23-2025 Hematocrit (Bld) [Volume fraction] 28.3 % Low 36.0-48.0 [facility] Hemoglobin [Mass/volume] in BloodOrdered By: Nathan Hathaway 06-23-2025 Hemoglobin (Bld) [Mass/Vol] 9.3 g/dL Low 12.0-16.0 [facility] IgA [Mass/volume] in Serum o r PlasmaOrdered By: Nathan Hathaway on 06-23-2025 IgA [Mass/Vol] 62 mg/dL Abnormal 64-422 [facility] IgG [Mass/volume] in Serum o r PlasmaOrdered By: Nathan Hathaway on 06-23-2025 IgG [Mass/Vol] 330 mg/dL Abnormal 586-1602 [facility] IgM [Mass/volume] in Serum o r PlasmaOrdered By: Nathan Hathaway on 06-23-2025 IgM [Mass/Vol] 325 mg/dL Abnormal 26-217 [facility] Immunoglobulin light chains. kappa.free [Mass/volume] in SerumOrdered By: Nathan Hathaway on 06-23-2025 Immunoglobulin light chains.kappa.free (S) [Mass/Vol] 224.6 mg/L Abnormal 3.3-19.4 [facility] Immunoglobulin light chains. kappa.free/Immunoglobulin light chains.lambda.free [MassOrdered By: Nathan Hathaway on 06-23-2025 Immunoglobulin light chains.kappa.free/Immu noglobulin light chains.lambda.free (S) [Mass ratio] 10.59 Abnormal 0.26-1.65 [facility] Comment on above: Performed at: [place] [id number] Director: Carlos Witt PhD, Phone: [phone] Immunoglobulin light chains. lambda.free [Mass/volume] in Serum or PlasmaOrdered By: Nathan Hathaway on 06-23-2025 Immunoglobulin light chains.lambda.free [Mass/Vol] 21.2 mg/L 5.7-26.3 [facility] Iron binding capacity [Mass/ volume] in Serum or PlasmaOrdered By: Nathan Hathaway on 06-23-2025 Iron binding capacity [Mass/Vol] 245.0 ug/dL Low 250.0-450.0 [facility] Iron saturation [Mass Fracti on] in Serum or PlasmaOrdered By: Nathan Hathaway on 06-23-2025 Iron saturation [Mass fraction] 14.3 % [facility] Laboratory - Chemistry and C hemistry - challengeOrdered By: Nathan Hathaway on 06-23-2025 ALP [Catalytic activity/Vol] 47 U/L 46-116 [facility] ALT [Catalytic activity/Vol] 18 U/L 14-59 [facility] AST [Catalytic activity/Vol] 18 U/L 15-37 [facility] Bilirubin [Mass/Vol] 0.5 mg/dL 0.2-1.[address] [facility] Calcium [Mass/Vol] 8.9 mg/dL 8.5-10.1 [facility] Chloride [Moles/Vol] 104 mmol/L 98-[address] [facility] Cholesterol [Mass/Vol] 123 mg/dL <=200 [facility] Cholesterol in HDL [Mass/Vol] 45 mg/dL 40-60 [facility] Comment on above: > or =60 mg/dl - LOW CARDIOVASCULAR RISK<40 mg/dl - HIGH CARDIOVASCULAR RISK CO2 [Moles/Vol] 30.2 mmol/L 21.0-32.0 [facility] Cobalamin (Vitamin B12) [Mass/Vol] 1089 pg/mL 232-1245 [facility] Comment on above: Performed at: [address] [id number] Director: Carlos Witt PhD, Phone: [phone] Creatinine [Mass/Vol] 1.45 mg/dL High 0.55-1.02 [facility] Ferritin [Mass/Vol] 176.0 ng/mL 8.0-252.[address] [facility] Free T4 [Mass/Vol] 0.97 ng/dL 0.76-1.46 [facility] GFR/1.73 sq M.predicted MDRD (S/P/Bld) [Vol rate/Area] 42 mL/min/{1.73_m2} Low >=60 mL/min/1.73 m 2 [facility] Glucose [Mass/Vol] 94 mg/dL 74-106 [facility] Iron [Mass/Vol] 35.0 ug/dL Low 50.0-170.0 [facility] Potassium [Moles/Vol] 4.3 mmol/L 3.5-5.1 [facility] Protein [Mass/Vol] 0.2 g/dL Abnormal Not Observed [facility] Protein [Mass/Vol] 6.5 g/dL 6.4-8.2 [facility] Sodium [Moles/Vol] 142 mmol/L 136-145 [facility] Triglyceride [Mass/Vol] 89 mg/dL <=150 [facility] TSH Qn 5.101 m[IU]/L High 0.358-3.740 [facility] Urea nitrogen [Mass/Vol] 22.0 mg/dL High 7.0-18.0 [facility] Urea nitrogen/Creatinine [Mass ratio] 15.2 mg/mg [facility] Laboratory - Hematology and Cell countsOrdered By: Nathan Hathaway on 06-23-2025 Immature granulocytes/100 WBC (Bld) 0.4 % 0.0-0.5 [facility] Leukocytes [#/volume] correc miguel for nucleated erythrocytes in Blood by Automated counOrdered By: Nathan Hathaway on 06-23-2025 WBC corrected for nucl RBC Auto (Bld) [#/Vol] 5.6 10 3/uL 4.0-11.0 [facility] Lymphocytes Auto (Bld) [#/Vo l]Ordered By: Nathan Hathaway on 06-23-2025 Lymphocytes (Bld) [#/Vol] 0.8 10 3/uL Low 1.2-3.8 [facility] Lymphocytes/100 WBC Auto (Bl d)Ordered By: Nathan Hathaway on 06-23-2025 Lymphocytes/100 WBC (Bld) 14.4 % Low 20.5-60.0 [facility] MCH Auto (RBC) [Entitic mass ]Ordered By: Nathan Hathaway on 06-23-2025 MCH (RBC) [Entitic mass] 29.0 pg 26.7-34.0 [facility] MCHC Auto (RBC) [Mass/Vol]Or dered By: Nathan Hathaway on 06-23-2025 MCHC (RBC) [Mass/Vol] 32.9 g/dL 29.9-35.2 [facility] MCV Auto (RBC) [Entitic vol] Ordered By: Nathan Hathaway on 06-23-2025 MCV (RBC) [Entitic vol] 88.2 fL 81.0-99.0 [facility] Monocytes Auto (Bld) [#/Vol] Ordered By: Nathan Hathaway on 06-23-2025 Monocytes (Bld) [#/Vol] 0.5 10 3/uL 0.3-0.8 [facility] Monocytes/100 WBC Auto (Bld) Ordered By: Nathan Hathaway on 06-23-2025 Monocytes/100 WBC (Bld) 8.7 % 1.7-12.0 [facility] Neutrophils Auto (Bld) [#/Vo l]Ordered By: Nathan Hathaway on 06-23-2025 Neutrophils (Bld) [#/Vol] 4.1 10 3/uL 1.4-6.5 [facility] Neutrophils/100 WBC Auto (Bl d)Ordered By: Nathan Hathaway on 06-23-2025 Neutrophils/100 WBC (Bld) 73.1 % 43.0-75.0 [facility] No Panel InformationOrdered By: Nathan Hathaway on 06-23-2025 Eosinophils # (Auto) 0.2 10 3/uL 0.0-0.7 [facility] Folate 17.90 ng/mL 8.60-58.90 [facility] Immature Granulocyte # (Auto) 0.02 10 3/uL 0.00-0.03 [facility] Protein Electrophoresis Note Comment . [facility] Comment on above: Protein electrophore sis scan will follow via computer,mail, or hospital cook delivery. Platelet mean volume Auto (B ld) [Entitic vol]Ordered By: Nathan Hathaway on 06-23-2025 Platelet mean volume (Bld) [Entitic vol] 10.2 fL 9.5-13.5 [facility] Platelets Auto (Bld) [#/Vol] Ordered By: Nathan Hathaway on 06-23-2025 Platelets (Bld) [#/Vol] 270 10 3/uL 150-450 [facility] Protein [Mass/volume] in Ser um or PlasmaOrdered By: Nathan Hathaway on 06-23-2025 Protein [Mass/Vol] 5.7 g/dL Abnormal 6.0-8.5 [facility] RBC Auto (Bld) [#/Vol]Ordere d By: Nathan Hathaway on 06-23-2025 RBC (Bld) [#/Vol] 3.21 10 6/uL Low 4.20-5.40 [facility] Serum globulin measurement ( mass/volume)Ordered By: Nathan Hathaway on 06-23-2025 Globulin (S) [Mass/Vol] 2.5 g/dL 2.2-3.9 [facility] Serum or plasma albumin/glob ulin mass ratioOrdered By: Nathan Hathaway on 06-23-2025 Albumin/Globulin [Mass ratio] 1.0 {ratio} [facility] Albumin/Globulin [Mass ratio] 1.3 {ratio} 0.7-1.7 [facility] Serum or plasma alpha 1 glob ulin measurement by electrophoresis (mass/volume)Ordered By: Nathan Hathaway on 06-23-2025 Alpha 1 globulin Elph [Mass/Vol] 0.3 g/dL 0.0-0.4 [facility] Serum or plasma alpha 2 glob ulin measurement by electrophoresis (mass/volume)Ordered By: Nathan Hathaway on 06-23-2025 Alpha 2 globulin Elph [Mass/Vol] 1.0 g/dL 0.4-1.0 [facility] Serum or plasma anion gap de terminationOrdered By: Nathan Hathaway on 06-23-2025 Anion gap [Moles/Vol] 12.1 mmol/L [facility] Serum or plasma beta globuli n measurement by electrophoresis (mass/volume)Ordered By: Nathan Hathaway on 06-23-2025 Beta globulin Elph [Mass/Vol] 0.7 g/dL 0.7-1.3 [facility] Serum or plasma gamma globul in measurement by electrophoresis (mass/volume)Ordered By: Nathan Hathaway on 06-23-2025 Gamma globulin Elph [Mass/Vol] 0.5 g/dL 0.4-1.8 [facility] Serum or plasma immunoelectr ophoresis interpretationOrdered By: Nathan Hathaway on 06-23-2025 Interpretation IEP [Interp] Comment Abnormal . [facility] Comment on above: Immunofixation shows IgM monoclonal protein with kappalight chain specificity. Serum or plasma total choles terol/high density lipoprotein (HDL) cholesterol mass ratOrdered By: Nathan Hathaway on 06-23-2025 Cholesterol.total/Chol esterol in HDL [Mass ratio] 2.7 {ratio} [facility] Comment on above: 3.3 - 4.4 LOW RISK4. 4 - 7.1 AVERAGE RISK7.1 - 11.0 MODERATE RISK>11.0 HIGH RISK Estimated glomerular filtrat ion rate (GFR) non- Americanon 03-18-2025 GFR/1.73 sq M.predicted among non-blacks MDRD (S/P/Bld) [Vol rate/Area] Estimated glomerular filtration rate (GFR) non- Low >=60 mL/min/1.73 m 2 [facility] GFR/1.73 sq M.predicted among non-blacks MDRD (S/P/Bld) [Vol rate/Area] 31 mL/min/{1.73_m2} Low >=60 mL/min/1.73 m 2 [facility] Laboratory - Chemistry and C hemistry - challengeon 03-18-2025 Calcium [Mass/Vol] 8.9 mg/dL 8.5-10.1 [facility] Chloride [Moles/Vol] 105 mmol/L 98-[address] [facility] CO2 [Moles/Vol] 30.7 mmol/L 21.0-32.0 [facility] Creatinine [Mass/Vol] 1.60 mg/dL High 0.55-1.02 [facility] GFR/1.73 sq M.predicted MDRD (S/P/Bld) [Vol rate/Area] 37 mL/min/{1.73_m2} Low >=60 mL/min/1.73 m 2 [facility] Glucose [Mass/Vol] 112 mg/dL High 74-106 [facility] Potassium [Moles/Vol] 4.4 mmol/L 3.5-5.1 [facility] Sodium [Moles/Vol] 145 mmol/L 136-145 [facility] TSH Qn 3.657 m[IU]/L 0.358-3.740 [facility] Urea nitrogen [Mass/Vol] 33.0 mg/dL High 7.0-18.0 [facility] Urea nitrogen/Creatinine [Mass ratio] 20.6 mg/mg [facility] Serum or plasma anion gap de terminationon 03-18-2025 Anion gap [Moles/Vol] Serum or plasma an ion gap determination [facility] Anion gap [Moles/Vol] 13.7 mmol/L [facility] TRANSTHORACIC ECHO (TTE) COM PLETEon 03-17-2025 TRANSTHORACIC ECHO (TTE) COMPLETE [address], Suite [facility] [place] [address] TRANSTHORACIC ECHOCARDIOGRAM REPORT Patient Name: LASHAUN JOAQUIN Reading Physician: [id number] Bryce Guy MD, [facility] Study Date: 03/17/2025 Ordering Provider: [id number] HOLDEN ROSADO MRN/PID: [id number] Fellow: Nurse: Date of /Age: 11 1940 / Junior Linux Administrator: Nicolasa taylor RDCS, RVT Gender Assigned at F Additional Staff: : Height: 165.10 cm Admit Date: Weight: 90.72 kg Admission Status: BSA / BMI: 1.98 m2 / 33.28 Department Location: [facility] kg/m2 [address] Blood Pressure: 120 /64 mmHg Study Type: TRANSTHORACIC ECHO (TTE) COMPLETE Diagnosis/ICD: Essential (primary) hypertension-I10; Palpitations-R00.2 Indication: CAD, PTCA-2022, Edema, Hyperlipidemia, Former Smoker CPT Codes: Echo Complete w Full Doppler-93984 Study Detail: The following Echo studies were [...] Normal Ranges: RV (more content not included)... [facility] Acanthocytes [Presence] in B lood by Light microscopyOrdered By: Jorge L Cruz on 02-12-2025 Acanthocytes LM Ql (Bld) Acanthocytes [Presence] in Blood by Light microscopy [facility] Alanine aminotransferase [En zymatic activity/volume] in Serum or PlasmaOrdered By: Jorge L Cruz on 02-12-2025 ALT [Catalytic activity/Vol] Alanine aminotransferase [Enzymatic activity/volume] in Serum or Plasma 7-52 [facility] Albumin [Mass/volume] in Ser um or Plasma by Bromocresol green (BCG) dye binding methoOrdered By: Jorge L Cruz on 02-12-2025 Albumin BCG dye [Mass/Vol] Albumin [Mass/volume] in Serum or Plasma by Bromocresol green (BCG) dye binding metho 3.5-5.7 [facility] Alkaline phosphatase [Enzyma tic activity/volume] in Serum or PlasmaOrdered By: Jorge L Cruz on 02-12-2025 ALP [Catalytic activity/Vol] Alkaline phosphatase [Enzymatic activity/volume] in Serum or Plasma 34-104 [facility] Anisocytosis LM Ql (Bld)Orde red By: Jorge L Cruz on 02-12-2025 Anisocytosis Ql (Bld) Anisocytosis [Pres ence] in Blood by Light microscopy [facility] Aspartate aminotransferase [ Enzymatic activity/volume] in Serum or PlasmaOrdered By: Jorge L Cruz on 02-12-2025 AST [Catalytic activity/Vol] Aspartate aminotransferase [Enzymatic activity/volume] in Serum or Plasma 13-39 [facility] B-Type Natriuretic Peptideon 02-12-2025 Natriuretic peptide B (Bld) [Mass/Vol] 246.0 pg/mL High 5-100 [facility] Comment on above: Result Comment: PERF ORMED BY: [facility] [address] [facility] DIVISIONShahnaz [place] [id number] PATHOLOGIST SALES ENGAGEMENT MANAGER RAMEZ MONTES M.D. Performed By: #### S CAN CBC, CK, HS TROP, BNP, PT, PTT ####[facility] [address] [place] [address] [facility] Basophils Auto (Bld) [#/Vol] Ordered By: Jorge L Cruz on 02-12-2025 Basophils (Bld) [#/Vol] Automated basophil count 0.0-0.2 [facility] Basophils/100 WBC Auto (Bld) Ordered By: Jorge L Cruz on 02-12-2025 Basophils/100 WBC (Bld) Automated basophil % . [facility] Bilirubin.total [Mass/volume ] in Serum or PlasmaOrdered By: Jorge L Cruz on 02-12-2025 Bilirubin [Mass/Vol] Bilirubin.total [Mass/volume] in Serum or Plasma 0.3-1.0 [facility] Calcium [Mass/volume] in Ser um or PlasmaOrdered By: Jorge L Cruz on 02-12-2025 Calcium [Mass/Vol] Calcium [Mass/volume ] in Serum or Plasma 8.6-10.3 [facility] Carbon dioxide, total [Moles /volume] in Serum or PlasmaOrdered By: Jorge L Cruz on 02-12-2025 CO2 [Moles/Vol] Carbon dioxide, tota l [Moles/volume] in Serum or Plasma 21.0-31.0 [facility] Chloride [Moles/volume] in S courtney or PlasmaOrdered By: Jorge L Cruz on 02-12-2025 Chloride [Moles/Vol] Chloride [Moles/vol ume] in Serum or Plasma 98-107 [facility] Comprehensive Metabolic Pane arnoldo 02-12-2025 Albumin [Mass/Vol] 3.8 g/dL Normal 3.5-5.7 [facility] Comment on above: Performed By: #### T SH3, CMP, MG #### [facility] [address] Albumin/Globulin [Mass ratio] 1.6 {ratio} Normal [facility] Comment on above: Performed By: #### T SH3, CMP, MG #### [facility] [address] [place] [id number] [place] ALP [Catalytic activity/Vol] 43 U/L Normal 34-104 [facility] Comment on above: Performed By: #### T SH3, CMP, MG #### [facility] [address] [place] [id number] [place] ALT [Catalytic activity/Vol] 14 U/L Normal 7-52 [facility] Comment on above: Performed By: #### T SH3, CMP, MG #### [facility] [address] [place] [id number] [facility] Anion gap [Moles/Vol] 11.4 mmol/L Normal 6.0-15.0 [facility] Comment on above: Performed By: #### T SH3, CMP, MG #### [facility] [address] [place] [address] [place] AST [Catalytic activity/Vol] 19 U/L Normal 13-39 [facility] Comment on above: Performed By: #### T SH3, CMP, MG #### [facility] [address] [place] [address] [place] Bilirubin [Mass/Vol] 0.4 mg/dL Normal 0.3-1.0 [facility] Comment on above: Performed By: #### T SH3, CMP, MG #### [facility] [address] [place] [address] [place] Calcium [Mass/Vol] 9.1 mg/dL Normal 8.6-10.3 [facility] Comment on above: Performed By: #### T SH3, CMP, MG #### [facility] [address] [place] [address] [place] Chloride [Moles/Vol] 107 mmol/L Normal 98-107 [facility] Comment on above: Performed By: #### T SH3, CMP, MG #### [facility] [address] [place] [address] [place] CO2 [Moles/Vol] 27.7 mmol/L Normal 21.0-31.0 [facility] Comment on above: Performed By: #### T SH3, CMP, MG #### [facility] [address] [place] [address] [place] Creatinine [Mass/Vol] 1.28 mg/dL High 0.60-1.20 [facility] Comment on above: Performed By: #### T SH3, CMP, MG #### [facility] [address] [place] [address] [place] Creatinine Clr Calc Pharmacy 37.75 Normal [facility] Comment on above: Performed By: #### T SH3, CMP, MG #### [facility] [address] Estimated GFR 41.827 mL/Min Normal [facility] Comment on above: Performed By: #### T SH3, CMP, MG #### [address] Globulin (S) [Mass/Vol] 2.4 g/dL Normal [facility] Comment on above: Performed By: #### T SH3, CMP, MG #### [address] Glucose [Mass/Vol] 102 mg/dL High 70-100 [facility] Comment on above: Result Comment: [place] Glucose Reference Range is dependent on time and content of last meal. Glucose of more than 200 mg/dL in a nonstressed, ambulatory subject supports the diagnosis of Diabetes Mellitus. ADA recommended reference range Performed By: #### T SH3, CMP, MG #### [address] Potassium [Moles/Vol] 4.1 mmol/L Normal 3.5-5.1 [facility] Comment on above: Performed By: #### T SH3, CMP, MG #### [address] Protein [Mass/Vol] 6.2 g/dL Low 6.4-8.9 [facility] Comment on above: Performed By: #### T SH3, CMP, MG #### [address] Sodium [Moles/Vol] 142 mmol/L Normal 136-145 [facility] Comment on above: Performed By: #### T SH3, CMP, MG #### [address] Urea nitrogen [Mass/Vol] 28 mg/dL High 7-25 [facility] Comment on above: Performed By: #### T SH3, CMP, MG #### [place] [address] [place] Creatine Kinaseon 02-12-2025 CK [Catalytic activity/Vol] 35 U/L Normal 30-223 [facility] Comment on above: Performed By: #### S CAN CBC, CK, HS TROP, BNP, PT, PTT ####[facility] [place] [address] [place] Creatine kinase [Enzymatic a ctivity/volume] in Serum or PlasmaOrdered By: Jorge L Cruz on 02-12-2025 CK [Catalytic activity/Vol] Creatine kinase [Enzymatic activity/volume] in Serum or Plasma 30-223 [facility] Creatinine [Mass/volume] in Serum or PlasmaOrdered By: Jorge L Cruz on 02-12-2025 Creatinine [Mass/Vol] Creatinine [Mass/v olume] in Serum or Plasma High 0.60-1.20 [facility] ECG 12 lead ECGon 02-12-2025 ECG 12 lead ECG [facility] Main [address] [address] Electrocardiograph Report Signed Patient: Lashaun Joaquin MR#: [id number] : 1940 Acct:[id number] Age/Sex: 84 / F ADM Date: 02/12/25 Loc: ER Room: Type: [facility] ER Attending Dr: Ordering Provider: [...] rhythm Confirmed by Jorge L CRUZ DO ([id number]) on 02/12/2025 10:52:00 AM Referred By: Electronically Signed By: Jorge L CRUZ DO Transcribed By: MUS Signed By Jorge L Cruz DO 0 02/12/25 1052 Normal [facility] Eosinophils Auto (Bld) [#/Vo l]Ordered By: Jorge L Cruz on 02-12-2025 Eosinophils (Bld) [#/Vol] Automated eosinophil count 0.0-0.45 [facility] Eosinophils/100 WBC Auto (Bl d)Ordered By: Jorge L Cruz on 02-12-2025 Eosinophils/100 WBC (Bld) Automated eosinophil % . [facility] Erythrocyte distribution wid th Auto (RBC) [Ratio]Ordered By: Jorge L Cruz on 02-12-2025 Erythrocyte distribution width (RBC) [Ratio] Erythrocyte distribution width [Ratio] by Automated count 11.9-15.3 [facility] Erythrocyte morphology findi ng [Identifier] in BloodOrdered By: Jorge L Cruz on 02-12-2025 RBC morphology finding Nom (Bld) RBC morphology [facility] Globulin Calc (S) [Mass/Vol] Ordered By: Jorge L Cruz on 02-12-2025 Globulin (S) [Mass/Vol] Serum globulin measurement by calculation (mass/volume) [facility] Glucose [Mass/volume] in Ser um or PlasmaOrdered By: Jorge L Cruz on 02-12-2025 Glucose [Mass/Vol] Glucose [Mass/volume ] in Serum or Plasma High 70-100 [facility] Comment on above: ADA recommended refe rence [...] by Automated count Low 34.0-46.4 [facility] Hemoglobin [Mass/volume] in BloodOrdered By: Jorge L Cruz 02-12-2025 Hemoglobin (Bld) [Mass/Vol] Hemoglobin [Mass/volume] in Blood Low 11.8-15.4 [facility] INR in Platelet poor plasma by Coagulation assayOrdered By: Jorge L Cruz 02-12-2025 INR Coag (PPP) [Relative time] INR in Platelet poor plasma by Coagulation assay [facility] Comment on above: INR Therapeutic Rang e [...] Blood by Automated coun 3.8-11.6 [facility] Lymphocytes Auto (Bld) [#/Vo l]Ordered By: Jorge L Cruz on 02-12-2025 Lymphocytes (Bld) [#/Vol] Lymphocytes [#/volume] in Blood by Automated count Low 1.00-4.8 [facility] Lymphocytes/100 WBC Auto (Bl d)Ordered By: Jorge L Cruz on 02-12-2025 Lymphocytes/100 WBC (Bld) Lymphocytes/100 leukocytes in Blood by Automated count . [facility] MCH Auto (RBC) [Entitic mass ]Ordered By: Jorge L Cruz on 02-12-2025 MCH (RBC) [Entitic mass] MCH [Entitic mass] by Automated count 24.7-34.3 [facility] MCHC Auto (RBC) [Mass/Vol]Or dered By: Jorge L Cruz on 02-12-2025 MCHC (RBC) [Mass/Vol] MCHC [Mass/volume] by Automated count 32.0-35.0 [facility] MCV Auto (RBC) [Entitic vol] Ordered By: Jorge L Cruz on 02-12-2025 MCV (RBC) [Entitic vol] MCV [Entitic volume] by Automated count 80-100 [facility] Magnesiumon 02-12-2025 Magnesium [Mass/Vol] 2.3 mg/dL Normal 1.9-2.7 [facility] Comment on above: Performed By: #### T SH3, CMP, MG #### [address] Magnesium [Mass/volume] in S courtney or PlasmaOrdered By: Jorge L Cruz on 02-12-2025 Magnesium [Mass/Vol] Magnesium [Mass/vol ume] in Serum or Plasma 1.9-2.7 [facility] Microcytes LM Ql (Bld)Ordere d By: Jorge L Cruz on 02-12-2025 Microcytes Ql (Bld) Microcytes [Presence ] in Blood by Light microscopy [facility] Monocyte distribution width [Entitic volume] in Blood by AutomatedOrdered By: Jorge L Cruz on 02-12-2025 Monocyte distribution width Auto (Bld) [Entitic vol] Monocyte distribution width [Entitic volume] in Blood by Automated High 0.00-20.00 [facility] Comment on above: For adults in ED, MD W > 20.0 may be associated with a higher risk of sepsis during the first 12 hrs of hospital admission Monocytes Auto (Bld) [#/Vol] Ordered By: Jorge L Cruz on 02-12-2025 Monocytes (Bld) [#/Vol] Automated blood monocyte count 0.0-0.8 [facility] Monocytes/100 WBC Auto (Bld) Ordered By: Jorge L Cruz on 02-12-2025 Monocytes/100 WBC (Bld) Automated monocyte % . [facility] Natriuretic peptide B [Mass/ Vol]Ordered By: Jorge L Cruz on 02-12-2025 Natriuretic peptide B (Bld) [Mass/Vol] BNP ser/plas High 5-100 [facility] Neutrophils Auto (Bld) [#/Vo l]Ordered By: Jorge L Cruz on 02-12-2025 Neutrophils (Bld) [#/Vol] Neutrophils [#/volume] in Blood by Automated count 1.8-7.7 [facility] Neutrophils/100 WBC Auto (Bl d)Ordered By: Jorge L Cruz on 02-12-2025 Neutrophils/100 WBC (Bld) Automated neutrophil % . [facility] No Panel InformationOrdered By: Jorge L Cruz on 02-12-2025 Estimated GFR (CKD-EPI) 41.827 mL/Min [facility] Creatinine Clearance (Chem 37.75 [facility] Nucleated erythrocytes [Pres ence] in Blood by Automated countOrdered By: Jorge L Cruz on 02-12-2025 Nucleated RBC Auto Ql (Bld) Nucleated erythrocytes [Presence] in Blood by Automated count 0-0.5 [facility] Ovalocytes [Presence] in Blo od by Light microscopyOrdered By: Jorge L Cruz on 02-12-2025 Ovalocytes LM Ql (Bld) Ovalocyte detection [facility] Partial Thromboplastin Timeo n 02-12-2025 aPTT Coag (Bld) [Time] 29.8 s Normal 25.1-36.5 [facility] Comment on above: Result Comment: A he matocrit value greater than 55% may lead to inaccurate results in coagulation testing. Patients having hematocrit values >55% require a special collection tube for coagulation studies. Please contact the laboratory at [phone] for redraw instructions. PERFORMED BY: [facility] [address] [place] [address] PATHOLOGIST SALES ENGAGEMENT MANAGER RAMEZ MONTES M.D. Performed By: #### S CAN CBC, CK, HS TROP, BNP, PT, PTT ####[facility] [id number] [place] [address] [facility] Platelet adequacy [Presence] in Blood by Light microscopyOrdered By: Jorge L Cruz on 02-12-2025 Platelets LM Ql (Bld) Platelet adequacy [Presence] in Blood by Light microscopy Normal [facility] Platelet mean volume Auto (B ld) [Entitic vol]Ordered By: Jorge L Cruz on 02-12-2025 Platelet mean volume (Bld) [Entitic vol] Platelet mean volume [Entitic volume] in Blood by Automated count 6.3-10.7 [facility] Platelet morphology finding [Identifier] in BloodOrdered By: Jorge L Cruz on 02-12-2025 Platelet morphology finding Nom (Bld) Platelet morphology finding [Identifier] in Blood Normal [facility] Platelets Auto (Bld) [#/Vol] Ordered By: Jorge L Cruz on 02-12-2025 Platelets (Bld) [#/Vol] Platelets [#/volume] in Blood by Automated count 150-450 [facility] Poikilocytosis [Presence] in Blood by Light microscopyOrdered By: Jorge L Cruz on 02-12-2025 Poikilocytosis LM Ql (Bld) Poikilocytosis [Presence] in Blood by Light microscopy [facility] Potassium [Moles/volume] in Serum or PlasmaOrdered By: Jorge L Cruz on 02-12-2025 Potassium [Moles/Vol] Potassium [Moles/v olume] in Serum or Plasma 3.5-5.1 [facility] Protein [Mass/volume] in Ser um or PlasmaOrdered By: Jorge L Cruz on 02-12-2025 Protein [Mass/Vol] Protein [Mass/volume ] in Serum or Plasma Low 6.4-8.9 [facility] Prothrombin Time INRon 02-12 INR Coag (PPP) [Relative time] 1.0 {INR} Normal [facility] Comment on above: Result [...] CBC, CK, HS TROP, BNP, PT, PTT ####[facility] [place] [id number] [facility] PT Coag (PPP) [Time] 11.3 s Normal 9.0-12.9 [facility] Comment on above: Result Comment: A he matocrit value greater than 55% may lead to inaccurate results in coagulation testing. Patients having hematocrit values >55% require a special collection tube for coagulation studies. Please contact the laboratory at [phone] for redraw instructions. Performed By: #### S CAN CBC, CK, HS TROP, BNP, PT, PTT ####[place] [id number] [place] [id number] [facility] Prothrombin time (PT)Ordered By: Jorge L Cruz on 02-12-2025 PT Coag (PPP) [Time] Prothrombin time (PT) 9.0- 12.9 [facility] Comment on above: A hematocrit value g reater than 55% may lead to inaccurate results in coagulation testing. Patients having hematocrit values >55% require a special collection tube for coagulation studies. Please contact the laboratory at [phone] for redraw instructions. RBC Auto (Bld) [#/Vol]Ordere d By: Jorge L Cruz on 02-12-2025 RBC (Bld) [#/Vol] Erythrocytes [#/volu me] in Blood by Automated count Low 3.60-5.00 [facility] Scan and CBCon 02-12-2025 Acanthocytes Slight Normal [facility] Comment on above: Performed By: #### S CAN CBC, CK, HS TROP, BNP, PT, PTT ####[facility] Anisocytosis Ql (Bld) Moderate Normal [facility] Comment on above: Performed By: #### S CAN CBC, CK, HS TROP, BNP, PT, PTT ####[address] Basophils (Bld) [#/Vol] 0.0 10*3/uL Normal 0.0-0.2 [facility] Comment on above: Performed By: #### S CAN CBC, CK, HS TROP, BNP, PT, PTT ####[address] Basophils/100 WBC (Bld) 0.6 % Normal . [facility] Comment on above: Performed By: #### S CAN CBC, CK, HS TROP, BNP, PT, PTT ####[address] Eosinophils (Bld) [#/Vol] 0.1 10*3/uL Normal 0.0-0.45 [facility] Comment on above: Performed By: #### S CAN CBC, CK, HS TROP, BNP, PT, PTT ####[address] Eosinophils/100 WBC (Bld) 1.5 % Normal . [facility] Comment on above: Performed By: #### S CAN CBC, CK, HS TROP, BNP, PT, PTT ####[address] Erythrocyte distribution width (RBC) [Ratio] 13.8 % Normal 11.9-15.3 [facility] Comment on above: Performed By: #### S CAN CBC, CK, HS TROP, BNP, PT, PTT ####[address] Hematocrit (Bld) [Volume fraction] 29.7 % Low 34.0-46.4 [facility] Comment on above: Performed By: #### S CAN CBC, CK, HS TROP, BNP, PT, PTT ####[address] Hemoglobin (Bld) [Mass/Vol] 10.2 g/dL Low 11.8-15.4 [facility] Comment on above: Performed By: #### S CAN CBC, CK, HS TROP, BNP, PT, PTT ####[address] Lymphocytes (Bld) [#/Vol] 0.9 10*3/uL Low 1.00-4.8 [facility] Comment on above: Performed By: #### S CAN CBC, CK, HS TROP, BNP, PT, PTT ####[address] Lymphocytes/100 WBC (Bld) 13.6 % Normal . [facility] Comment on above: Performed By: #### S CAN CBC, CK, HS TROP, BNP, PT, PTT ####[address] MCH (RBC) [Entitic mass] 28.9 pg Normal 24.7-34.3 [facility] Comment on above: Performed By: #### S CAN CBC, CK, HS TROP, BNP, PT, PTT ####[address] MCV (RBC) [Entitic vol] 83.9 fL Normal 80-100 [facility] Comment on above: Performed By: #### S CAN CBC, CK, HS TROP, BNP, PT, PTT ####[address] Mean Corpuscular HGB Conc 34.5 g/dL Normal 32.0-35.0 [facility] Comment on above: Performed By: #### S CAN CBC, CK, HS TROP, BNP, PT, PTT ####[address] Microcytosis Moderate Normal [facility] Comment on above: Performed By: #### S CAN CBC, CK, HS TROP, BNP, PT, PTT ####[address] Monocytes (Bld) [#/Vol] 0.4 10*3/uL Normal 0.0-0.8 [facility] Comment on above: Performed By: #### S CAN CBC, CK, HS TROP, BNP, PT, PTT ####[address] Monocytes/100 WBC (Bld) 21.49 % High 0.00-20.00 [facility] Comment on above: Result Comment: For adults in ED, MDW > 20.0 may be associated with a higher risk of sepsis during the first 12 hrs of hospital admission Performed By: #### S CAN CBC, CK, HS TROP, BNP, PT, PTT ####[address] Monocytes/100 WBC (Bld) 6.6 % Normal . [facility] Comment on above: Performed By: #### S CAN CBC, CK, HS TROP, BNP, PT, PTT ####[address] Neutrophils (Bld) [#/Vol] 4.9 10*3/uL Normal 1.8-7.7 [facility] Comment on above: Performed By: #### S CAN CBC, CK, HS TROP, BNP, PT, PTT ####[address] Neutrophils/100 WBC (Bld) 77.7 % Normal . [facility] Comment on above: Performed By: #### S CAN CBC, CK, HS TROP, BNP, PT, PTT ####[address] NRBC% 0.1 /100{WBC} Normal 0-0.5 [facility] Comment on above: Performed By: #### S CAN CBC, CK, HS TROP, BNP, PT, PTT ####[place] [address] [place] Ovalocytes Slight Normal [facility] Comment on above: Performed By: #### S CAN CBC, CK, HS TROP, BNP, PT, PTT ####[address] [place] [address] [facility] Platelet Estimate Normal Normal Normal [facility] Comment on above: Performed By: #### S CAN CBC, CK, HS TROP, BNP, PT, PTT ####[address] [address] [facility] Platelet mean volume (Bld) [Entitic vol] 7.7 fL Normal 6.3-10.7 [facility] Comment on above: Performed By: #### S CAN CBC, CK, HS TROP, BNP, PT, PTT ####[address] [address] [facility] Platelet Morphology Normal Normal Normal [facility] Comment on above: Result Comment: PERF ORMED BY: [facility] [place] [address] [place] [address] PATHOLOGIST SALES ENGAGEMENT MANAGER RAMEZ MONTES M.D. Performed By: #### S CAN CBC, CK, HS TROP, BNP, PT, PTT ####[place] [id number] [facility] Platelets (Bld) [#/Vol] 383 10*3/uL Normal 150-450 [facility] Comment on above: Performed By: #### S CAN CBC, CK, HS TROP, BNP, PT, PTT ####[address] [address] [facility] Poikilocytosis Moderate Normal [facility] Comment on above: Performed By: #### S CAN CBC, CK, HS TROP, BNP, PT, PTT ####[place] [id number] [facility] RBC (Bld) [#/Vol] 3.54 10*6/uL Low 3.60-5.00 [facility] Comment on above: Performed By: #### S CAN CBC, CK, HS TROP, BNP, PT, PTT ####[address] [address] [facility] WBC (Bld) [#/Vol] 6.3 10*3/uL Normal 3.8-11.6 [facility] Comment on above: Performed By: #### S CAN CBC, CK, HS TROP, BNP, PT, PTT ####[facility] WBC (Bld) [#/Vol] 7.6 10*3/uL Normal 3.8-11.6 [facility] Comment on above: Performed By: #### S CAN CBC, CK, HS TROP, BNP, PT, PTT ####[facility] Serum or plasma albumin/glob ulin mass ratioOrdered By: Jorge L Cruz on 02-12-2025 Albumin/Globulin [Mass ratio] Serum or plasma albumin/globulin mass ratio [facility] Serum or plasma anion gap de terminationOrdered By: Jorge L Cruz on 02-12-2025 Anion gap [Moles/Vol] Serum or plasma an ion gap determination 6.0-15.0 [facility] Sodium [Moles/volume] in Ser um or PlasmaOrdered By: Jorge L Cruz on 02-12-2025 Sodium [Moles/Vol] Sodium [Moles/volume ] in Serum or Plasma 136-145 [facility] Thyroid Stimulating Hormoneo n 02-12-2025 TSH Qn 6.48 m[IU]/L High 0.45-5.33 [facility] Comment on above: Result Comment: PERF ORMED BY: [place] [address] PATHOLOGIST SALES ENGAGEMENT MANAGER RAMEZ MONTES M.D. Performed By: #### T SH3, CMP, MG #### [facility] [address] Thyrotropin [Units/volume] i n Serum or PlasmaOrdered By: Jorge L Cruz on 02-12-2025 TSH Qn Thyrotropin [Units/volume] in Serum or Plasma High 0.45-5.33 [facility] Troponin I High Sensitivityo n 02-12-2025 Troponin I High Sensitivity 10 Normal 0-15 [facility] Comment on above: Result Comment: The Troponin units of report have been changed to meet the Chest Pain Accreditation requirement, element EC5.M1l2. Troponin units are changed from pg/ml to ng/L. Also, the decimal is removed and results are in whole numbers. PERFORMED BY: [place] [address] PATHOLOGIST SALES ENGAGEMENT MANAGER RAMEZ OMNTES M.D. Performed By: #### H S TROP ####[place] [id number] [facility] Troponin I High Sensitivity 10 Normal 0-15 [facility] Comment on above: Result Comment: The Troponin units of report have been changed to meet the Chest Pain Accreditation requirement, element EC5.M1l2. Troponin units are changed from pg/ml to ng/L. Also, the decimal is removed and results are in whole numbers. PERFORMED BY: [place] [address] PATHOLOGIST SALES ENGAGEMENT MANAGER RAMEZ MONTES M.D. Performed By: #### S CAN CBC, CK, HS TROP, BNP, PT, PTT ####[place] [id number] [facility] Troponin I.cardiac [Mass/vol ume] in Serum or Plasma by Detection limit <= 0.01 ng/Ordered By: Jorge L Cruz on 02-12-2025 Troponin I.cardiac DL <= 0.01 ng/mL [Mass/Vol] Troponin I.cardiac [Mass/volume] in Serum or Plasma by Detection limit <= 0.01 ng/ 0-15 [facility] Comment on above: The Troponin units o [...] Serum or Plasma High 7-25 [facility] WBC Auto (Bld) [#/Vol]Ordere d By: Jorge L Cruz on 02-12-2025 WBC (Bld) [#/Vol] Leukocytes [#/volume ] in Blood by Automated count 3.8-11.6 [facility] XR chest 2V*on 02-12-2025 XR chest 2V* [facility] [address] [place] [address] [place] [address] XRay Report Signed Patient: Lashaun Joaquin MR#: [id number] : 1940 Acct:[id number] Age/Sex: 84 / F ADM Date: 02/12/25 Loc: ER Room: Type: [facility] ER Attending Dr: Copies to: Jorge L [...] Lyon Jr., D.OManuel02/12/2025 8:16 AM Dictation Location: [place] [address] Transcribed By: [facility] 02/12/25815 Dictated By: Epifanio Lyon Jr, DO 02/12/25815 Signed By: 02/12/25815 Normal [facility] aPTT in Platelet poor plasma by Coagulation assayOrdered By: Jorge L Cruz on 02-12-2025 aPTT Coag (PPP) [Time] Activated partial thromboplastin time (aPTT) in platelet poor plasma by coagulation a 25.1-36.5 [facility] Comment on above: A hematocrit value g reater than 55% may lead to inaccurate results in coagulation testing. Patients having hematocrit values >55% require a special collection tube for coagulation studies. Please contact the laboratory at [phone] for redraw instructions. US Thyroid glandon [facility] [address] [place] [address] Ultrasound Report Signed Patient: LASHAUN JOAQUIN MR#: [id number] : 1940 Acct:[id number] Age/Sex: 84 / F ADM Date: 02/10/25 Loc: US Attending Dr: Reyna Esparza M.D. Ordering Physician: Reyna Esparza M.D. Date of Service: 02/10/25 Procedure(s): US thyroid Accession Number(s): [id number] cc: Nathan Hathaway D.O.; Reyna Esparza M.D. [place] [id number] Patient Name: LASHAUN JOAQUIN MRN: [facility]:[id number] date: 1940 Sex: F Assigned Patient Location: US Current Patient Location: US Accession/Order Number: [id number] Exam Date: 02/10/2025 11:24 Report Date: 02/10/2025 [...] Shelli Israel M.D.02/10/2025 11:33 AM Dictation Location: [place] [address] Electronically authenticated by: [id number] Y Date: 02/10/2025 11:33 Dictated By: Shelli Israel M.D. Signed By: 02/10/25 1136 DD/ 1133 TD/TT: Lead Systems Developer: [facility] Radiology, Radiologi MD tana - 02/10/2025 [place] [address] Ultrasound Report Signed Patient: LASHAUN JOAQUIN MR#: [id number] : 1940 Acct:[id number] Age/Sex: 84 / F ADM Date: 02/10/25 Loc: US Attending Dr: Reyna Esparza M.D. Ordering Physician: Reyna Esparza M.D. Date of Service: 02/10/25 Procedure(s): US thyroid Accession Number(s): [id number] cc: Nathan Hathaway D.O.; Reyna Esparza M.D. [place] [address] Patient Name: LASHAUN JOAQUIN MRN: [facility]:[id number] date: 1940 Sex: F Assigned Patient Location: US Current Patient Location: US Accession/Order Number: [id number] Exam Date: 02/10/2025 11:24 Report Date: 02/10/2025 [...] Shelli Israel M.D.02/10/2025 11:33 AM Dictation Location: [place] [address] Electronically authenticated by: [id number] Y Date: 02/10/2025 11:33 Dictated By: Shelli Israel M.D. Signed By: 02/10/25 1136 DD/ 1133 TD/TT: Lead Systems Developer: [facility] Radiology Study observation (narrative) [facility] US Thyroid glandOrdered By: Radiologist Radiology on 02-10-2025 [facility] Work Phone: Estimated glomerular filtrat ion rate (GFR) non- Americanon 01-23-2025 GFR/1.73 sq M.predicted among non-blacks MDRD (S/P/Bld) [Vol rate/Area] Estimated glomerular filtration rate (GFR) non- Low >=60 mL/min/1.73 m 2 [facility] Laboratory - Chemistry and C hemistry - challengeon 01-23-2025 Calcium [Mass/Vol] 8.9 mg/dL 8.5-10.1 [facility] Chloride [Moles/Vol] 106 mmol/L 98-[address] [facility] CO2 [Moles/Vol] 28.0 mmol/L 21.0-32.0 [facility] Creatinine [Mass/Vol] 1.42 mg/dL High 0.55-1.02 [facility] GFR/1.73 sq M.predicted MDRD (S/P/Bld) [Vol rate/Area] 43 mL/min/{1.73_m2} Low >=60 mL/min/1.73 m 2 [facility] Glucose [Mass/Vol] 116 mg/dL High 74-106 [facility] Potassium [Moles/Vol] 3.9 mmol/L 3.5-5.1 [facility] Sodium [Moles/Vol] 145 mmol/L 136-145 [facility] Urea nitrogen [Mass/Vol] 21.0 mg/dL High 7.0-18.0 [facility] Urea nitrogen/Creatinine [Mass ratio] 14.8 mg/mg [facility] Serum or plasma anion gap de terminationon 01-23-2025 Anion gap [Moles/Vol] Serum or plasma an ion gap determination [facility] Laboratory - Chemistry and C hemistry - challengeon 12-29-2024 Bilirubin Ql (U) Negative [facility] Glucose (U) [Mass/Vol] [facility] Ketones Ql (U) Negative [facility] pH (U) 5 [pH] [facility] Specific gravity (U) [Rel density] 1.000 [facility] Urobilinogen (U) [Mass/Vol] Negative [facility] Laboratory - Specimen inform ationon 12-29-2024 Appearance (U) clear [facility] Color (U) yellow [facility] Laboratory - Urinalysison Leukocyte esterase Test strip Ql (U) Negative [facility] Nitrite Ql (U) Negative [facility] Protein Ql (U) 0.2 [facility] No Panel Informationon 12-29 Urine Occult Blood ++ [facility] Estimated glomerular filtrat ion rate (GFR) non- Americanon 12-18-2024 GFR/1.73 sq M.predicted among non-blacks MDRD (S/P/Bld) [Vol rate/Area] Estimated glomerular filtration rate (GFR) non- Low >=60 mL/min/1.73 m 2 [facility] Laboratory - Chemistry and C hemistry - challengeon 12-18-2024 Calcium [Mass/Vol] 8.9 mg/dL 8.5-10.1 [facility] Chloride [Moles/Vol] 105 mmol/L 98-[address] [facility] CO2 [Moles/Vol] 30.4 mmol/L 21.0-32.0 [facility] Creatinine [Mass/Vol] 1.57 mg/dL High 0.55-1.02 [facility] Free T4 [Mass/Vol] 0.90 ng/dL 0.76-1.46 [facility] GFR/1.73 sq M.predicted MDRD (S/P/Bld) [Vol rate/Area] 38 mL/min/{1.73_m2} Low >=60 mL/min/1.73 m 2 [facility] Glucose [Mass/Vol] 119 mg/dL High 74-106 [facility] Potassium [Moles/Vol] 4.1 mmol/L 3.5-5.1 [facility] Sodium [Moles/Vol] 143 mmol/L 136-145 [facility] TSH Qn 2.650 m[IU]/L 0.358-3.740 [facility] Urea nitrogen [Mass/Vol] 28.0 mg/dL High 7.0-18.0 [facility] Urea nitrogen/Creatinine [Mass ratio] 17.8 mg/mg [facility] Serum or plasma anion gap de terminationon 12-18-2024 Anion gap [Moles/Vol] Serum or plasma an ion gap determination [facility] INR in Platelet poor plasma by Coagulation assayOrdered By: Nathan Hathaway on 11-17-2024 INR Coag (PPP) [Relative time] INR in Platelet poor plasma by Coagulation assay [facility] Comment on above: INR Therapeutic Rang e [...] [id number] Received: 11/17/24 Status: SERENITY Bob Num: [id number] Spec Type: Cytology Subm Dr: Seth Ley DO Tissues: A FNA SLIDES PATH (FNA THYROID) Procedures: -, DIFF QWIK/3, PAPSTN/4 Age/ Patient Sex Location Account Attending Physician Lashaun Joaquin 84/F [id number] Nathan Hathaway DO SPEC NUM: [id number] RECD: 11/17/24-1307 STATUS: SERENITY BOB NUM: [id number] JED: 11/17/24- SUBM DR: Seth Ley DO ENTERED: 11/17/24-1308 [facility] DR: Nathan Hathaway DO SPEC TYPE: Cytology DEPT: HARDY ENTERED BY: [id number] RECV BY: [id number] ORDERED: -, DIFF QWIK/3, PAPSTN/4 ORDERED: -, DIFF QWIK/3, PAPSTN/4 Pathological Diagnosis Thyroid nodule, US-guided FNA: Satisfactory for evaluation. Benign (Calvin category I). Clinical Information Thyroid Nodule,adrenal nodule, [...] [id number] Received: 11/17/24 Status: SERENITY Meyer Num: [id number] Spec Type: Cytology Subm Dr: Seth Ley DO Tissues: A FNA SLIDES PATH (FNA THYROID) Procedures: -, DIFF QWIK/3, PAPSTN/4 Patient: Lashaun Joaquin [id number] (Continued) Specimen: [id number] Received: 11/17/24 (Continued) Signed (signature on file) Lala Mast MD 11/18/24 0857 Specimen: [id number] Received: 11/17/24 Status: SERENITY Meyer Num: [id number] Spec Type: Cytology Subm Dr: Seth Ley DO Tissues: A FNA SLIDES PATH (FNA THYROID) Procedures: -, DIFF QWIK/3, PAPSTN/4 Patient: Karla Joaquinelyn [id number] (Continued) Specimen: [id number] Received: 11/17/24 (Continued) CPT Codes 93494, 64348 Specimen: [id number] Received: 11/17/24-1307 Status: SERENITY Meyer Num: [id number] Spec Type: Cytology Subm Dr: Seth Ley DO Tissues: A FNA SLIDES PATH (FNA THYROID) Procedures: -, DIFF QWIK/3, PAPSTN/4 Patient: Lashaun Joaquin [id number] (Continued) Signed (signature on file) Lala Mast MD 11/18/24 0857 Normal [facility] Partial Thromboplastin Timeo n 11-17-2024 aPTT Coag ([facility]) [Time] 28.9 s Normal 25.1-36.5 [facility] Comment on above: Result Comment: A he matocrit value greater than 55% may lead to inaccurate results in coagulation testing. Patients having hematocrit values >55% require a special collection tube for coagulation studies. Please contact the laboratory at [phone] for redraw instructions. PERFORMED BY: [address] [address] PATHOLOGIST SALES ENGAGEMENT MANAGER RAMEZ MONTES M.D. Performed By: #### P TT, PT #### [place] [id number] [facility] Platelet Counton 11-17-2024 Platelets (Bld) [#/Vol] 253 10*3/uL Normal 150-450 [facility] Comment on above: Result Comment: PERF ORMED BY: [place] [address] PATHOLOGIST SALES ENGAGEMENT MANAGER RAMEZ MONTES M.D. Performed By: #### P LT #### [address] Platelets Auto (Bld) [#/Vol] Ordered By: Nathan Hathaway on 11-17-2024 Platelets (Bld) [#/Vol] Platelets [#/volume] in Blood by Automated count 150-450 [facility] Prothrombin Time INRon 11-17 INR Coag (PPP) [Relative time] 1.0 {INR} Normal [facility] Comment on above: Result [...] Performed By: #### P TT, PT #### [address] [address] [facility] PT Coag (PPP) [Time] 11.9 s Normal 9.0-12.9 [facility] Comment on above: Result Comment: A he matocrit value greater than 55% may lead to inaccurate results in coagulation testing. Patients having hematocrit values >55% require a special collection tube for coagulation studies. Please contact the laboratory at [phone] for redraw instructions. Performed By: #### P TT, PT #### [facility] [address] [place] [id number] [facility] Prothrombin time (PT)Ordered By: Nathan Hathaway on 11-17-2024 PT Coag (PPP) [Time] Prothrombin time (PT) 9.0- 12.9 [facility] Comment on above: A hematocrit value g reater than 55% may lead to inaccurate results in coagulation testing. Patients having hematocrit values >55% require a special collection tube for coagulation studies. Please contact the laboratory at [phone] for redraw instructions. US needle aspirationon 11-17 US needle aspiration [facility] [address] [place] [address] [place] [address] Ultrasound Report Signed Patient: Lashaun Joaquin MR#: [id number] : 1940 Acct:[id number] Age/Sex: 84 / F ADM Date: 11/17/24 Loc: Room: Type: [facility] Attending Dr: Nathan Hathaway DO Ordering Provider: Nathan Hathwaay DO Date of Service: 11/17/24 US/US needle [...] Seth Ley M.D.11/17/2024 12:41 PM Dictation Location: [place] [address] Tech: Deja Lipscomb Transcribed By: LAURA 11/17/24 1241 Dictated By: Seth Ley DO 11/17/24 1159 Signed By: 11/17/24 1241 Normal [facility] aPTT in Platelet poor plasma by Coagulation assayOrdered By: Nathan Hathaway on 11-17-2024 aPTT Coag (PPP) [Time] Activated partial thromboplastin time (aPTT) in platelet poor plasma by coagulation a 25.1-36.5 [facility] Comment on above: A hematocrit value g reater than 55% may lead to inaccurate results in coagulation testing. Patients having hematocrit values >55% require a special collection tube for coagulation studies. Please contact the laboratory at [phone] for redraw instructions. Estimated glomerular filtrat ion rate (GFR) non- Americanon 09-12-2024 GFR/1.73 sq M.predicted among non-blacks MDRD (S/P/Bld) [Vol rate/Area] Estimated glomerular filtration rate (GFR) non- Low >=60 mL/min/1.73 m 2 [facility] Laboratory - Chemistry and C hemistry - challengeon 09-12-2024 Calcium [Mass/Vol] 8.6 mg/dL 8.5-10.1 [facility] Chloride [Moles/Vol] 108 mmol/L High 98-[address] [facility] CO2 [Moles/Vol] 27.0 mmol/L 21.0-32.0 [facility] Creatinine [Mass/Vol] 1.39 mg/dL High 0.55-1.02 [facility] Free T4 [Mass/Vol] 0.80 ng/dL 0.76-1.46 [facility] GFR/1.73 sq M.predicted MDRD (S/P/Bld) [Vol rate/Area] 44 mL/min/{1.73_m2} Low >=60 mL/min/1.73 m 2 [facility] Glucose [Mass/Vol] 85 mg/dL 74-106 [facility] Potassium [Moles/Vol] 4.5 mmol/L 3.5-5.1 [facility] Sodium [Moles/Vol] 144 mmol/L 136-145 [facility] TSH Qn 3.767 m[IU]/L High 0.358-3.740 [facility] Urea nitrogen [Mass/Vol] 20.0 mg/dL High 7.0-18.0 [facility] Urea nitrogen/Creatinine [Mass ratio] 14.4 mg/mg [facility] Serum or plasma anion gap de terminationon 09-12-2024 Anion gap [Moles/Vol] Serum or plasma an ion gap determination [facility] Estimated glomerular filtrat ion rate (GFR) non- Americanon 05-20-2024 GFR/1.73 sq M.predicted among non-blacks MDRD (S/P/Bld) [Vol rate/Area] 39 mL/min/{1.73_m2} Low >=60 [facility] Laboratory - Chemistry and C hemistry - challengeon 05-20-2024 Calcium [Mass/Vol] 8.8 mg/dL 8.5-10.1 [facility] Chloride [Moles/Vol] 106 mmol/L 98-[address] [facility] CO2 [Moles/Vol] 30.8 mmol/L 21.0-32.0 [facility] Creatinine [Mass/Vol] 1.30 mg/dL High 0.55-1.02 [facility] GFR/1.73 sq M.predicted MDRD (S/P/Bld) [Vol rate/Area] 48 mL/min/{1.73_m2} Low >=60 [facility] Glucose [Mass/Vol] 89 mg/dL 74-106 [facility] Potassium [Moles/Vol] 4.3 mmol/L 3.5-5.1 [facility] Sodium [Moles/Vol] 143 mmol/L 136-145 [facility] Urea nitrogen [Mass/Vol] 24.0 mg/dL High 7.0-18.0 [facility] Urea nitrogen/Creatinine [Mass ratio] 18.5 mg/mg [facility] Serum or plasma anion gap de terminationon 05-20-2024 Anion gap [Moles/Vol] 10.5 mmol/L [facility] Estimated glomerular filtrat ion rate (GFR) non- Americanon 04-30-2024 GFR/1.73 sq M.predicted among non-blacks MDRD (S/P/Bld) [Vol rate/Area] 37 mL/min/{1.73_m2} Low >=60 [facility] Laboratory - Chemistry and C hemistry - challengeon 04-30-2024 Calcium [Mass/Vol] 8.5 mg/dL 8.5-10.1 [facility] Chloride [Moles/Vol] 106 mmol/L 98-[address] [facility] CO2 [Moles/Vol] 28.7 mmol/L 21.0-32.0 [facility] Creatinine [Mass/Vol] 1.36 mg/dL High 0.55-1.02 [facility] GFR/1.73 sq M.predicted MDRD (S/P/Bld) [Vol rate/Area] 45 mL/min/{1.73_m2} Low >=60 [facility] Glucose [Mass/Vol] 98 mg/dL 74-106 [facility] Potassium [Moles/Vol] 4.3 mmol/L 3.5-5.1 [facility] Sodium [Moles/Vol] 142 mmol/L 136-145 [facility] Urea nitrogen [Mass/Vol] 26.0 mg/dL High 7.0-18.0 [facility] Urea nitrogen/Creatinine [Mass ratio] 19.1 mg/mg [facility] Serum or plasma anion gap de terminationon 04-30-2024 Anion gap [Moles/Vol] 11.6 mmol/L [facility] NM Heart Perfusion W stress and [...] Faustino Zuniga 03/12/2024 4:34 PM Dictation workstation: [id number] Interpreted By: Faustino Zuniga, and Gustavo Ignacio STUDY: MYOCARDIAL PERFUSION STRESS TEST WITH LEXISCAN Performing facility: [facility], [address] [place] [address], [address], [place] [address] [facility] Provider: Holden Rosado RN, DENTISTRY TEACHER PCP: Dr. Ksenia Hathaway Supervising provider: Anthony Perry DO, [facility] INDICATION: ASHD HISTORY: Gender: F; Age: 83 y/o ; Height: HT 165.1 cm cm; Weight: WT 88.905 kg kg. CAD; High Cholesterol; HTN; Fatigue; Quit smoking 44 years ago. Cardiac catheterization on 2022. PTCA on 2022. COMPARISON: Previous nuclear testing completed at [place]. ACCESSION NUMBER(S): [id number] ORDERING CLINICIAN: HOLDEN ROSADO TECHNIQUE: ONE DAY [...] PERFUSION STRESS TEST WITH LEXISCAN Performing facility: [facility], [address] [place] [address], [address], [place] [address] [facility] Provider: Holden Rosado RN, DENTISTRY TEACHER PCP: Dr. Ksenia Hathaway Supervising provider: Anthony Perry DO, [facility] INDICATION: ASHD HISTORY: Gender: F; Age: 83 y/o ; Height: HT 165.1 cm cm; Weight: WT 88.905 kg kg. CAD; High Cholesterol; HTN; Fatigue; Quit smoking 44 years ago. Cardiac catheterization on 2022. PTCA on 2022. COMPARISON: Previous nuclear testing completed [id number] at [place]. ACCESSION NUMBER(S): [id number] ORDERING CLINICIAN: HOLDEN ROSADO TECHNIQUE: ONE DAY [...] Faustino Zuniga 03/12/2024 4:34 PM Dictation workstation: [id number] [facility] Work Phone: Radiology Study observation (narrative) [facility] Work Phone: NM Heart Perfusion W stress and W radionuclide IVOrdered By: Faustino Zuniga on 03-12-2024 [facility] Work Phone: Basic Metabolic Panelon 05-0 GFR/1.73 sq M.predicted MDRD (S/P/Bld) [Vol rate/Area] 39.134 mL/min/{1.73_m2} Normal [facility] Comment on above: Performed By: #### B MP ####[address] [address] [facility] Calcium [Mass/volume] in Ser um or PlasmaOrdered By: Holden Rosado on 03-05-2024 Calcium [Mass/Vol] 9.2 mg/dL Normal 8.6-10.3 [facility] Comment on above: Result Comment: PERF ORMED BY: [facility] [address] [place] [address] PATHOLOGIST SALES ENGAGEMENT MANAGER JAMAAL MO M.D. Performed By: #### B MP ####[place] [id number] [facility] Carbon dioxide, total [Moles /volume] in Serum or PlasmaOrdered By: Holden Rosado on 03-05-2024 CO2 [Moles/Vol] 32.1 mmol/L High 21.0-31.0 [facility] Comment on above: Performed By: #### B MP ####[address] [address] [place] Chloride [Moles/volume] in S courtney or PlasmaOrdered By: Holden Rosado on 03-05-2024 Chloride [Moles/Vol] 104 mmol/L Normal 98-[address] [facility] Comment on above: Performed By: #### B MP ####[place] [id number] [place] Creatinine [Mass/volume] in Serum or PlasmaOrdered By: Holden Rosado on 03-05-2024 Creatinine [Mass/Vol] 1.36 mg/dL High 0.60-1.20 [facility] Comment on above: Performed By: #### B MP ####[place] [id number] [place] Glucose [Mass/volume] in Ser um or PlasmaOrdered By: Holden Rosado on 05-08-2024 Glucose [Mass/Vol] 79 mg/dL Normal 70-100 [facility] Comment on above: ADA recommended refe rence rangeRandom Glucose Reference Range is dependent on time and content of last meal. Glucose of more than 200 mg/dL in a nonstressed, ambulatory subject supports the diagnosis of Diabetes Mellitus. Result Comment: [place] om Glucose Reference Range is dependent on time and content of last meal. Glucose of more than 200 mg/dL in a nonstressed, ambulatory subject supports the diagnosis of Diabetes Mellitus. ADA recommended reference range Performed By: #### B MP ####[address] No Panel InformationOrdered By: Holden Rosado on 03-05-2024 Estimated GFR (CKD-EPI) 39.134 mL/Min [facility] Creatinine Clearance (Chem N/A [facility] Potassium [Moles/volume] in Serum or PlasmaOrdered By: Holden Rosado on 03-05-2024 Potassium [Moles/Vol] 5.2 mmol/L High 3.5-5.1 [facility] Comment on above: Performed By: #### B MP ####[address] Serum or plasma anion gap de terminationOrdered By: Holden Rosado on 03-05-2024 Anion gap [Moles/Vol] 10.1 mmol/L Normal 6.0-15.0 [facility] Comment on above: Performed By: #### B MP ####[address] Sodium [Moles/volume] in Ser um or PlasmaOrdered By: Holden Rosado on 03-05-2024 Sodium [Moles/Vol] 141 mmol/L Normal 136-145 [facility] Comment on above: Performed By: #### B MP ####[address] Urea nitrogen [Mass/volume] in Serum or PlasmaOrdered By: Holden Rosado on 03-05-2024 Urea nitrogen [Mass/Vol] 26 mg/dL High 7-25 [facility] Comment on above: Performed By: #### B MP ####[facility] [id number] [place] [address] [facility] Basophils Auto (Bld) [#/Vol] on 02-20-2024 Basophils (Bld) [#/Vol] 0.0 10 3/uL 0.0-0.1 [facility] Basophils/100 WBC Auto (Bld) on 02-20-2024 Basophils/100 WBC (Bld) 0.8 % 0.2-2.0 [facility] Eosinophils/100 WBC Auto (Bl d)on 02-20-2024 Eosinophils/100 WBC (Bld) 2.8 % 0.9-7.0 [facility] Erythrocyte distribution wid th Auto (RBC) [Ratio]on 02-20-2024 Erythrocyte distribution width (RBC) [Ratio] 13.1 % 11.0-15.0 [facility] Estimated glomerular filtrat ion rate (GFR) non- Americanon 02-20-2024 GFR/1.73 sq M.predicted among non-blacks MDRD (S/P/Bld) [Vol rate/Area] 49 mL/min/{1.73_m2} >=60 [facility] Globulin Calc (S) [Mass/Vol] on 02-20-2024 Globulin (S) [Mass/Vol] 2.7 g/dL [facility] Hematocrit Auto (Bld) [Volum e fraction]on 02-20-2024 Hematocrit (Bld) [Volume fraction] 29.2 % 36.0-48.0 [facility] Hemoglobin [Mass/volume] in Bloodon 02-20-2024 Hemoglobin (Bld) [Mass/Vol] 9.5 g/dL 12.0-16.0 [facility] Laboratory - Chemistry and C hemistry - challengeon 02-20-2024 Albumin [Mass/Vol] 2.9 g/dL 3.4-5.0 [facility] ALP [Catalytic activity/Vol] 44 U/L 46-116 [facility] ALT [Catalytic activity/Vol] 13 U/L 14-59 [facility] AST [Catalytic activity/Vol] 14 U/L 15-37 [facility] Bilirubin [Mass/Vol] 0.6 mg/dL 0.2-1.[address] [facility] Calcium [Mass/Vol] 8.9 mg/dL 8.5-10.1 [facility] Chloride [Moles/Vol] 107 mmol/L 98-[address] [facility] CO2 [Moles/Vol] 27.9 mmol/L 21.0-32.0 [facility] Creatinine [Mass/Vol] 1.08 mg/dL 0.55-1.02 [facility] GFR/1.73 sq M.predicted MDRD (S/P/Bld) [Vol rate/Area] 59 mL/min/{1.73_m2} >=60 [facility] Glucose [Mass/Vol] 83 mg/dL 74-106 [facility] Potassium [Moles/Vol] 3.8 mmol/L 3.5-5.1 [facility] Protein [Mass/Vol] 5.6 g/dL 6.4-8.2 [facility] Sodium [Moles/Vol] 141 mmol/L 136-145 [facility] Urea nitrogen [Mass/Vol] 18.0 mg/dL 7.0-18.0 [facility] Urea nitrogen/Creatinine [Mass ratio] 16.7 mg/mg [facility] Laboratory - Hematology and Cell countson 02-20-2024 Immature granulocytes/100 WBC (Bld) 0.2 % 0.0-0.5 [facility] Leukocytes [#/volume] correc miguel for nucleated erythrocytes in Blood by Automated counon 02-20-2024 WBC corrected for nucl RBC Auto (Bld) [#/Vol] 4.7 10 3/uL 4.0-11.0 [facility] Lymphocytes Auto (Bld) [#/Vo l]on 02-20-2024 Lymphocytes (Bld) [#/Vol] 1.0 10 3/uL 1.2-3.8 [facility] Lymphocytes/100 WBC Auto (Bl d)on 02-20-2024 Lymphocytes/100 WBC (Bld) 21.8 % 20.5-60.0 [facility] MCH Auto (RBC) [Entitic mass ]on 02-20-2024 MCH (RBC) [Entitic mass] 29.2 pg 26.7-34.0 [facility] MCHC Auto (RBC) [Mass/Vol]on 02-20-2024 MCHC (RBC) [Mass/Vol] 32.5 g/dL 29.9-35.2 [facility] MCV Auto (RBC) [Entitic vol] on 02-20-2024 MCV (RBC) [Entitic vol] 89.8 fL 81.0-99.0 [facility] Monocytes Auto (Bld) [#/Vol] on 02-20-2024 Monocytes (Bld) [#/Vol] 0.7 10 3/uL 0.3-0.8 [facility] Monocytes/100 WBC Auto (Bld) on 02-20-2024 Monocytes/100 WBC (Bld) 14.2 % 1.7-12.0 [facility] Neutrophils Auto (Bld) [#/Vo l]on 02-20-2024 Neutrophils (Bld) [#/Vol] 2.8 10 3/uL 1.4-6.5 [facility] Neutrophils/100 WBC Auto (Bl d)on 02-20-2024 Neutrophils/100 WBC (Bld) 60.2 % 43.0-75.0 [facility] No Panel Informationon 02-19 Eosinophils # (Auto) 0.1 10 3/uL 0.0-0.7 [facility] Immature Granulocyte # (Auto) 0.01 10 3/uL 0.00-0.03 [facility] Platelet mean volume Auto (B ld) [Entitic vol]on 02-20-2024 Platelet mean volume (Bld) [Entitic vol] 10.5 fL 9.5-13.5 [facility] Platelets Auto (Bld) [#/Vol] on 02-20-2024 Platelets (Bld) [#/Vol] 250 10 3/uL 150-450 [facility] RBC Auto (Bld) [#/Vol]on RBC (Bld) [#/Vol] 3.25 10 6/uL 4.20-5.40 [facility] [place] [facility] Serum or plasma albumin/glob ulin mass ratioon 02-20-2024 Albumin/Globulin [Mass ratio] 1.1 {ratio} [facility] Serum or plasma anion gap de terminationon 02-20-2024 Anion gap [Moles/Vol] 9.9 mmol/L [facility] Basophils Auto (Bld) [#/Vol] on 02-19-2024 Basophils (Bld) [#/Vol] 0.0 10 3/uL 0.0-0.1 [facility] Basophils/100 WBC Auto (Bld) on 02-19-2024 Basophils/100 WBC (Bld) 0.8 % 0.2-2.0 [facility] Cholesterol in LDL Calc [Mas s/Vol]on 02-19-2024 Cholesterol in LDL [Mass/Vol] 100.4 mg/dL [facility] Comment on above: <100 mg/dl [id number] 0-129 mg/dl NEAR OR ABOVE [id number] mg/dl BORDERLINE [id number] mg/dl HIGH>190 mg/dl VERY HIGH Cholesterol in VLDL Calc [Ma ss/Vol]on 02-19-2024 Cholesterol in VLDL [Mass/Vol] 15.6 mg/dL [facility] Eosinophils/100 WBC Auto (Bl d)on 02-19-2024 Eosinophils/100 WBC (Bld) 1.9 % 0.9-7.0 [facility] Erythrocyte distribution wid th Auto (RBC) [Ratio]on 02-19-2024 Erythrocyte distribution width (RBC) [Ratio] 13.2 % 11.0-15.0 [facility] Estimated glomerular filtrat ion rate (GFR) non- Americanon 02-19-2024 GFR/1.73 sq M.predicted among non-blacks MDRD (S/P/Bld) [Vol rate/Area] 44 mL/min/{1.73_m2} >=60 [facility] Globulin Calc (S) [Mass/Vol] on 02-19-2024 Globulin (S) [Mass/Vol] 2.8 g/dL [facility] Hematocrit Auto (Bld) [Volum e fraction]on 02-19-2024 Hematocrit (Bld) [Volume fraction] 31.2 % 36.0-48.0 [facility] Hemoglobin [Mass/volume] in Bloodon 02-19-2024 Hemoglobin (Bld) [Mass/Vol] 10.0 g/dL 12.0-16.0 [facility] Laboratory - Chemistry and C hemistry - challengeon 02-19-2024 Albumin [Mass/Vol] 3.2 g/dL 3.4-5.0 [facility] ALP [Catalytic activity/Vol] 49 U/L 46-116 [facility] ALT [Catalytic activity/Vol] 15 U/L 14-59 [facility] AST [Catalytic activity/Vol] 15 U/L 15-37 [facility] Bilirubin [Mass/Vol] 0.5 mg/dL 0.2-1.[address] [facility] Calcium [Mass/Vol] 9.4 mg/dL 8.5-10.1 [facility] Chloride [Moles/Vol] 108 mmol/L 98-[address] [facility] Cholesterol [Mass/Vol] 158 mg/dL <=200 [facility] Cholesterol in HDL [Mass/Vol] 42 mg/dL 40-60 [facility] Comment on above: > or =60 mg/dl - LOW CARDIOVASCULAR RISK<40 mg/dl - HIGH CARDIOVASCULAR RISK CO2 [Moles/Vol] 28.7 mmol/L 21.0-32.0 [facility] Creatinine [Mass/Vol] 1.18 mg/dL 0.55-1.02 [facility] GFR/1.73 sq M.predicted MDRD (S/P/Bld) [Vol rate/Area] 53 mL/min/{1.73_m2} >=60 [facility] Glucose [Mass/Vol] 93 mg/dL 74-106 [facility] Potassium [Moles/Vol] 4.0 mmol/L 3.5-5.1 [facility] Protein [Mass/Vol] 6.0 g/dL 6.4-8.2 [facility] Sodium [Moles/Vol] 145 mmol/L 136-145 [facility] Triglyceride [Mass/Vol] 78 mg/dL <=150 [facility] TSH Qn 4.696 m[IU]/L 0.358-3.740 [facility] Urea nitrogen [Mass/Vol] 20.0 mg/dL 7.0-18.0 [facility] [facility] [place] Urea nitrogen/Creatinine [Mass ratio] 16.9 mg/mg [facility] Laboratory - Hematology and Cell countson 02-19-2024 Immature granulocytes/100 WBC (Bld) 0.6 % 0.0-0.5 [facility] Leukocytes [#/volume] correc miguel for nucleated erythrocytes in Blood by Automated counon 02-19-2024 WBC corrected for nucl RBC Auto (Bld) [#/Vol] 5.3 10 3/uL 4.0-11.0 [facility] Lymphocytes Auto (Bld) [#/Vo l]on 02-19-2024 Lymphocytes (Bld) [#/Vol] 1.1 10 3/uL 1.2-3.8 [facility] Lymphocytes/100 WBC Auto (Bl d)on 02-19-2024 Lymphocytes/100 WBC (Bld) 21.3 % 20.5-60.0 [facility] MCH Auto (RBC) [Entitic mass ]on 02-19-2024 MCH (RBC) [Entitic mass] 29.6 pg 26.7-34.0 [facility] MCHC Auto (RBC) [Mass/Vol]on 02-19-2024 MCHC (RBC) [Mass/Vol] 32.1 g/dL 29.9-35.2 [facility] MCV Auto (RBC) [Entitic vol] on 02-19-2024 MCV (RBC) [Entitic vol] 92.3 fL 81.0-99.0 [facility] Monocytes Auto (Bld) [#/Vol] on 02-19-2024 Monocytes (Bld) [#/Vol] 0.6 10 3/uL 0.3-0.8 [facility] Monocytes/100 WBC Auto (Bld) on 02-19-2024 Monocytes/100 WBC (Bld) 11.1 % 1.7-12.0 [facility] Neutrophils Auto (Bld) [#/Vo l]on 02-19-2024 Neutrophils (Bld) [#/Vol] 3.4 10 3/uL 1.4-6.5 [facility] Neutrophils/100 WBC Auto (Bl d)on 02-19-2024 Neutrophils/100 WBC (Bld) 64.3 % 43.0-75.0 [facility] No Panel Informationon 02-18 Eosinophils # (Auto) 0.1 10 3/uL 0.0-0.7 [facility] Immature Granulocyte # (Auto) 0.03 10 3/uL 0.00-0.03 [facility] Platelet mean volume Auto (B ld) [Entitic vol]on 02-19-2024 Platelet mean volume (Bld) [Entitic vol] 10.4 fL 9.5-13.5 [facility] Platelets Auto (Bld) [#/Vol] on 02-19-2024 Platelets (Bld) [#/Vol] 262 10 3/uL 150-450 [facility] RBC Auto (Bld) [#/Vol]on RBC (Bld) [#/Vol] 3.38 10 6/uL 4.20-5.40 [facility] Serum or plasma albumin/glob ulin mass ratioon 02-19-2024 Albumin/Globulin [Mass ratio] 1.1 {ratio} [facility] Serum or plasma anion gap de terminationon 02-19-2024 Anion gap [Moles/Vol] 12.3 mmol/L Fi [facility] Serum or plasma total choles terol/high density lipoprotein (HDL) cholesterol mass anastasia 02-19-2024 Cholesterol.total/Chol esterol in HDL [Mass ratio] 3.8 {ratio} [facility] Comment on above: 3.3 - 4.4 LOW RISK4. 4 - 7.1 AVERAGE RISK7.1 - 11.0 MODERATE RISK>11.0 HIGH RISK Basophils Auto (Bld) [#/Vol] on 02-18-2024 Basophils (Bld) [#/Vol] 0.0 10 3/uL 0.0-0.1 [facility] Basophils/100 WBC Auto (Bld) on 02-18-2024 Basophils/100 WBC (Bld) 0.4 % 0.2-2.0 [facility] Eosinophils/100 WBC Auto (Bl d)on 02-18-2024 Eosinophils/100 WBC (Bld) 1.2 % 0.9-7.0 [facility] Erythrocyte distribution wid th Auto (RBC) [Ratio]on 02-18-2024 Erythrocyte distribution width (RBC) [Ratio] 13.2 % 11.0-15.0 [facility] Estimated glomerular filtrat ion rate (GFR) non- Americanon 02-18-2024 GFR/1.73 sq M.predicted among non-blacks MDRD (S/P/Bld) [Vol rate/Area] 34 mL/min/{1.73_m2} >=60 [facility] Hematocrit Auto (Bld) [Volum e fraction]on 02-18-2024 Hematocrit (Bld) [Volume fraction] 31.7 % 36.0-48.0 [facility] Hemoglobin [Mass/volume] in Bloodon 02-18-2024 Hemoglobin (Bld) [Mass/Vol] 10.3 g/dL 12.0-16.0 [facility] Laboratory - Chemistry and C hemistry - challengeon 02-18-2024 Magnesium [Mass/Vol] 2.3 mg/dL 1.8-2.[address] [facility] Natriuretic peptide B (Bld) [Mass/Vol] 800.0 pg/mL <=1800.0 [facility] Calcium [Mass/Vol] 9.0 mg/dL 8.5-10.1 [facility] Chloride [Moles/Vol] 106 mmol/L 98-[address] [facility] CO2 [Moles/Vol] 30.4 mmol/L 21.0-32.0 [facility] Creatinine [Mass/Vol] 1.46 mg/dL 0.55-1.02 [facility] GFR/1.73 sq M.predicted MDRD (S/P/Bld) [Vol rate/Area] 42 mL/min/{1.73_m2} >=60 [facility] Glucose [Mass/Vol] 102 mg/dL 74-106 [facility] Potassium [Moles/Vol] 4.1 mmol/L 3.5-5.1 [facility] Sodium [Moles/Vol] 144 mmol/L 136-145 [facility] Urea nitrogen [Mass/Vol] 21.0 mg/dL 7.0-18.0 [facility] Urea nitrogen/Creatinine [Mass ratio] 14.4 mg/mg [facility] Laboratory - Hematology and Cell countson 02-18-2024 Immature granulocytes/100 WBC (Bld) 0.7 % 0.0-0.5 [facility] Leukocytes [#/volume] correc miguel for nucleated erythrocytes in Blood by Automated counon 02-18-2024 WBC corrected for nucl RBC Auto (Bld) [#/Vol] 6.8 10 3/uL 4.0-11.0 [facility] Lymphocytes Auto (Bld) [#/Vo l]on 02-18-2024 Lymphocytes (Bld) [#/Vol] 0.8 10 3/uL 1.2-3.8 [facility] Lymphocytes/100 WBC Auto (Bl d)on 02-18-2024 Lymphocytes/100 WBC (Bld) 11.2 % 20.5-60.0 [facility] MCH Auto (RBC) [Entitic mass ]on 02-18-2024 MCH (RBC) [Entitic mass] 29.3 pg 26.7-34.0 [facility] MCHC Auto (RBC) [Mass/Vol]on 02-18-2024 MCHC (RBC) [Mass/Vol] 32.5 g/dL 29.9-35.2 [facility] MCV Auto (RBC) [Entitic vol] on 02-18-2024 MCV (RBC) [Entitic vol] 90.1 fL 81.0-99.0 [facility] Monocytes Auto (Bld) [#/Vol] on 02-18-2024 Monocytes (Bld) [#/Vol] 0.6 10 3/uL 0.3-0.8 [facility] Monocytes/100 WBC Auto (Bld) on 02-18-2024 Monocytes/100 WBC (Bld) 9.5 % 1.7-12.0 [facility] Neutrophils Auto (Bld) [#/Vo l]on 02-18-2024 Neutrophils (Bld) [#/Vol] 5.2 10 3/uL 1.4-6.5 [facility] Neutrophils/100 WBC Auto (Bl d)on 04-22-2024 Neutrophils/100 WBC (Bld) 77.0 % 43.0-75.0 [facility] No Panel Informationon 02-17 Troponin I High Sensitivity 11.1 pg/mL 4.0-51.3 [facility] Comment on above: CUT-OFF POINTS HAVE BEEN [...] Eosinophils # (Auto) 0.1 10 3/uL 0.0-0.7 [facility] Immature Granulocyte # (Auto) 0.05 10 3/uL 0.00-0.03 [facility] Platelet mean volume Auto (B ld) [Entitic vol]on 02-18-2024 Platelet mean volume (Bld) [Entitic vol] 10.1 fL 9.5-13.5 [facility] Platelets Auto (Bld) [#/Vol] on 02-18-2024 Platelets (Bld) [#/Vol] 255 10 3/uL 150-450 [facility] RBC Auto (Bld) [#/Vol]on RBC (Bld) [#/Vol] 3.52 10 6/uL 4.20-5.40 [facility] Serum or plasma anion gap de terminationon 02-18-2024 Anion gap [Moles/Vol] 11.7 [facility] Basophils Auto (Bld) [#/Vol] on 02-02-2024 Basophils (Bld) [#/Vol] 0.1 10 3/uL 0.0-0.1 [facility] Basophils/100 WBC Auto (Bld) on 02-02-2024 Basophils/100 WBC (Bld) 1.1 % 0.2-2.0 [facility] Cholesterol in LDL Calc [Mas s/Vol]on 02-02-2024 Cholesterol in LDL [Mass/Vol] 113.6 mg/dL [facility] Comment on above: <100 mg/dl [id number] 0-129 mg/dl NEAR OR ABOVE [id number] mg/dl BORDERLINE [id number] mg/dl HIGH>190 mg/dl VERY HIGH Cholesterol in VLDL Calc [Ma ss/Vol]on 02-02-2024 Cholesterol in VLDL [Mass/Vol] 10.4 mg/dL [facility] Eosinophils/100 WBC Auto (Bl d)on 02-02-2024 Eosinophils/100 WBC (Bld) 2.3 % 0.9-7.0 [facility] Erythrocyte distribution wid th Auto (RBC) [Ratio]on 02-02-2024 Erythrocyte distribution width (RBC) [Ratio] 13.1 % 11.0-15.0 [facility] Estimated glomerular filtrat ion rate (GFR) non- Americanon 02-02-2024 GFR/1.73 sq M.predicted among non-blacks MDRD (S/P/Bld) [Vol rate/Area] 34 mL/min/{1.73_m2} >=60 [facility] Globulin Calc (S) [Mass/Vol] on 02-02-2024 Globulin (S) [Mass/Vol] 3.0 g/dL [facility] Hematocrit Auto (Bld) [Volum e fraction]on 02-02-2024 Hematocrit (Bld) [Volume fraction] 34.7 % 36.0-48.0 [facility] Hemoglobin [Mass/volume] in Bloodon 02-02-2024 Hemoglobin (Bld) [Mass/Vol] 10.9 g/dL 12.0-16.0 [facility] Laboratory - Chemistry and C hemistry - challengeon 02-02-2024 Albumin [Mass/Vol] 3.4 g/dL 3.4-5.0 [facility] ALP [Catalytic activity/Vol] 52 U/L 46-116 [facility] ALT [Catalytic activity/Vol] 13 U/L 14-59 [facility] AST [Catalytic activity/Vol] 14 U/L 15-37 [facility] Bilirubin [Mass/Vol] 0.3 mg/dL 0.2-1.[address] [facility] Calcium [Mass/Vol] 9.3 mg/dL 8.5-10.1 [facility] Chloride [Moles/Vol] 109 mmol/L 98-[address] [facility] Cholesterol [Mass/Vol] 169 mg/dL <=200 [facility] Cholesterol in HDL [Mass/Vol] 45 mg/dL 40-60 [facility] Comment on above: > or =60 mg/dl - LOW CARDIOVASCULAR RISK<40 mg/dl - HIGH CARDIOVASCULAR RISK CO2 [Moles/Vol] 29.8 mmol/L 21.0-32.0 [facility] Creatinine [Mass/Vol] 1.47 mg/dL 0.55-1.02 [facility] GFR/1.73 sq M.predicted MDRD (S/P/Bld) [Vol rate/Area] 41 mL/min/{1.73_m2} >=60 [facility] Glucose [Mass/Vol] 104 mg/dL 74-106 [facility] Potassium [Moles/Vol] 4.9 mmol/L 3.5-5.1 [facility] Protein [Mass/Vol] 6.4 g/dL 6.4-8.2 [facility] Sodium [Moles/Vol] 147 mmol/L 136-145 [facility] Triglyceride [Mass/Vol] 52 mg/dL <=150 [facility] TSH Qn 3.613 m[IU]/L 0.358-3.740 [facility] Urea nitrogen [Mass/Vol] 24.0 mg/dL 7.0-18.0 [facility] Urea nitrogen/Creatinine [Mass ratio] 16.3 mg/mg [facility] Laboratory - Hematology and Cell countson 02-02-2024 Immature granulocytes/100 WBC (Bld) 0.4 % 0.0-0.5 [facility] Leukocytes [#/volume] correc miguel for nucleated erythrocytes in Blood by Automated counon 02-02-2024 WBC corrected for nucl RBC Auto (Bld) [#/Vol] 5.6 10 3/uL 4.0-11.0 [facility] Lymphocytes Auto (Bld) [#/Vo l]on 02-02-2024 Lymphocytes (Bld) [#/Vol] 1.1 10 3/uL 1.2-3.8 [facility] Lymphocytes/100 WBC Auto (Bl d)on 02-02-2024 Lymphocytes/100 WBC (Bld) 20.2 % 20.5-60.0 [facility] MCH Auto (RBC) [Entitic mass ]on 02-02-2024 MCH (RBC) [Entitic mass] 29.8 pg 26.7-34.0 [facility] MCHC Auto (RBC) [Mass/Vol]on 02-02-2024 MCHC (RBC) [Mass/Vol] 31.4 g/dL 29.9-35.2 [facility] MCV Auto (RBC) [Entitic vol] on 02-02-2024 MCV (RBC) [Entitic vol] 94.8 fL 81.0-99.0 [facility] Monocytes Auto (Bld) [#/Vol] on 02-02-2024 Monocytes (Bld) [#/Vol] 0.7 10 3/uL 0.3-0.8 [facility] Monocytes/100 WBC Auto (Bld) on 02-02-2024 Monocytes/100 WBC (Bld) 11.7 % 1.7-12.0 [facility] Neutrophils Auto (Bld) [#/Vo l]on 02-02-2024 Neutrophils (Bld) [#/Vol] 3.6 10 3/uL 1.4-6.5 [facility] Neutrophils/100 WBC Auto (Bl d)on 02-02-2024 Neutrophils/100 WBC (Bld) 64.3 % 43.0-75.0 [facility] No Panel Informationon 02-01 Eosinophils # (Auto) 0.1 10 3/uL 0.0-0.7 [facility] Immature Granulocyte # (Auto) 0.02 10 3/uL 0.00-0.03 [facility] Platelet mean volume Auto (B ld) [Entitic vol]on 02-02-2024 Platelet mean volume (Bld) [Entitic vol] 10.6 fL 9.5-13.5 [facility] Platelets Auto (Bld) [#/Vol] on 02-02-2024 Platelets (Bld) [#/Vol] 253 10 3/uL 150-450 [facility] RBC Auto (Bld) [#/Vol]on RBC (Bld) [#/Vol] 3.66 10 6/uL 4.20-5.40 [facility] Serum or plasma albumin/glob ulin mass ratioon 02-02-2024 Albumin/Globulin [Mass ratio] 1.1 {ratio} [facility] Serum or plasma anion gap de terminationon 02-02-2024 Anion gap [Moles/Vol] 13.1 mmol/L Fi [facility] Serum or plasma total choles terol/high density lipoprotein (HDL) cholesterol mass anastasia 02-02-2024 Cholesterol.total/Chol esterol in HDL [Mass ratio] 3.8 {ratio} [facility] Comment on above: 3.3 - 4.4 LOW RISK4. 4 - 7.1 AVERAGE RISK7.1 - 11.0 MODERATE RISK>11.0 HIGH RISK UA RANDOM W/MICROSCOPICon Clarity (U) CLEAR CLEAR [employer] Other Color (U) DK YELLOW YELLOW [employer] Other Ketones Ql (U) Negative NEGATIVE mg/dL [employer] Other Leukocyte esterase Test strip Ql (U) Negative NEGATIVE [employer] Other pH (U) 6.5 [pH] 5.0-9.0 [employer] Other UA RANDOM W/MICROSCOPIC 0-2 #/HPF Abnormal NONE SEEN #/HPF [employer] Other UA RANDOM W/MICROSCOPIC 5-10 #/HPF Abnormal 0-2 #/HPF [employer] Other UA RANDOM W/MICROSCOPIC see note [employer] Other UA RANDOM W/MICROSCOPIC 1.010 1.005-1.025 [employer] Other UA RANDOM W/MICROSCOPIC Negative NEGATIVE [employer] Other UA RANDOM W/MICROSCOPIC LARGE Abnormal NEGATIVE [employer] Other UA RANDOM W/MICROSCOPIC Positive Abnormal NEGATIVE [employer] Other UA RANDOM W/MICROSCOPIC 1.0 EU/dL 0.2-1.0 EU/dL [place] Other UA RANDOM W/MICROSCOPIC TRACE #/HPF Abnormal NONE SEEN #/HPF [place] [place] Other UA RANDOM W/MICROSCOPIC NONE SEEN NONE SEEN [place] [employer] Other UA RANDOM W/MICROSCOPIC RARE #/LPF NONE/RARE #/LPF [place] [employer] Other UA RANDOM W/MICROSCOPIC None Seen #/HPF None Seen #/HPF [place] [employer] Other UA RANDOM W/MICROSCOPIC NONE SEEN #/LPF NONE SEEN #/LPF [place] [employer] Other Urinalysis - DIPSTICKon 06-29 Appearance (U) clear [employer] Other Bilirubin Ql (U) Negative [employer] Other Color (U) light yellow [employer] Other Glucose Ql (U) Negative [employer] Other Hemoglobin Ql (U) +++ [employer] Other Ketones Ql (U) Negative [employer] Other Leukocyte esterase Test strip Ql (U) Negative [employer] Other Nitrite Ql (U) Negative [employer] Other pH (U) 0.2 [pH] [employer] Other Protein Ql (U) trace [employer] Other Specific gravity (U) [Rel density] 1.005 [employer] Other Urobilinogen (U) [Mass/Vol] off chart [employer] Other Urinalysis - DIPSTICK [place] [employer] Other ESR Westergren method (Bld) [Velocity]on 06-05-2023 ESR (Bld) [Velocity] 119 mm/h High 0 - 20 mm/hr [facility] FERRITIN BLDon 06-05-2023 Ferritin [Mass/Vol] 160.0 ng/mL 14.7 - 205.1 ng/mL [facility] Iron and Iron binding capaci ty panelon 06-05-2023 Iron [Mass/Vol] 45 ug/dL 41 - 186 ug/dL [facility] Iron binding capacity [Mass/Vol] 252 ug/dL 232 - 386 ug/dL [facility] Iron/TIBC [Molar ratio] 17.9 % 15.0 - 57.0 % [facility] Basic metabolic 2000 panelon 06-04-2023 Anion gap [Moles/Vol] 10 mmol/L 9 - 18 mmol/L [facility] Calcium [Mass/Vol] 9.2 mg/dL 8.5 - 10. 2 mg/dL [facility] Chloride [Moles/Vol] 106 mmol/L High 97 - 10 5 mmol/L [facility] CO2 [Moles/Vol] 27 mmol/L 22 - 30 mmol/L [facility] Creatinine [Mass/Vol] 1.09 mg/dL High 0.58 - 0.96 mg/dL [facility] Estimated Glomerular Filtration Rate 51 mL/min/1.73m Low >=60 mL/min/1.73 m [facility] Glucose [Mass/Vol] 116 mg/dL High 74 - 99 mg/dL [facility] Potassium [Moles/Vol] 4.3 mmol/L 3.7 - 5.1 mmol/L [facility] Sodium [Moles/Vol] 143 mmol/L 136 - 144 mmol/L [facility] Urea nitrogen [Mass/Vol] 19 mg/dL 7 - 21 mg/dL [facility] CBC W Auto Differential pane l (Bld)on 06-04-2023 Basophils (Bld) [#/Vol] 0.04 10*3/uL <0.11 k/uL [facility] Basophils/100 WBC (Bld) 0.8 % [facility] Differential cell count method Nom (Bld) Auto [facility] Eosinophils (Bld) [#/Vol] 0.14 10*3/uL <0.46 k/uL [facility] Eosinophils/100 WBC (Bld) 2.9 % [facility] Erythrocyte distribution width (RBC) [Ratio] 13.6 % 11.5 - 15.0 % [facility] Hematocrit (Bld) [Volume fraction] 28.8 % Low 36.0 - 46.0 % [facility] Hemoglobin (Bld) [Mass/Vol] 9.2 g/dL Low 11.5 - 15.5 g/dL [facility] Immature granulocytes (Bld) [#/Vol] <0.10 k/uL [facility] Immature granulocytes/100 WBC (Bld) 0.4 % [facility] Lymphocytes (Bld) [#/Vol] 0.83 10*3/uL Low 1.00 - 4.00 k/uL [facility] Lymphocytes/100 WBC (Bld) 17.4 % [facility] MCH (RBC) [Entitic mass] 29.6 pg 26.0 - 34.0 pg [facility] MCHC (RBC) [Mass/Vol] 31.9 g/dL 30.5 - 36.0 g/dL [facility] MCV (RBC) [Entitic vol] 92.6 fL 80.0 - 100.0 fL [facility] Monocytes (Bld) [#/Vol] 0.40 10*3/uL <0.87 k/uL [facility] Monocytes/100 WBC (Bld) 8.4 % [facility] Neutrophils (Bld) [#/Vol] 3.35 10*3/uL 1.45 - 7.50 k/uL [facility] Neutrophils/100 WBC (Bld) 70.1 % [facility] Nucleated RBC (Bld) [#/Vol] <0.01 k/uL [facility] Nucleated RBC/100 WBC (Bld) [Ratio] 0.0 /100 WBC [facility] Platelet mean volume (Bld) [Entitic vol] 10.2 fL 9.0 - 12.7 fL [facility] Platelets (Bld) [#/Vol] 274 10*3/uL 150 - 400 k/uL [facility] RBC (Bld) [#/Vol] 3.11 10*6/uL Low 3.90 - 5.2 0 m/uL [facility] WBC (Bld) [#/Vol] 4.78 10*3/uL 3.70 - 11.00 k/uL [facility] RETIC COUNTon 06-04-2023 Reticulocytes (Bld) [#/Vol] 0.56208 10*3/uL 0.018 - 0.100 M/uL [facility] Reticulocytes (Bld) [#/Vol]o n 06-04-2023 Reticulocytes/100 RBC (Bld) 2.0 % 0.4 - 2.0 % [facility] Basophils Auto (Bld) [#/Vol] Ordered By: Lj Ryan on 05-18-2023 Basophils (Bld) [#/Vol] 0.0 10*3/uL 0.0-0.2 [facility] [place] Basophils/100 WBC Auto (Bld) Ordered By: Lj Ryan on 05-18-2023 Basophils/100 WBC (Bld) 0.7 % . [facility] Calcium [Mass/volume] in Ser um or PlasmaOrdered By: Lj Ryan on 05-18-2023 Calcium [Mass/Vol] 8.9 mg/dL 8.6-10.3 [facility] Carbon dioxide, total [Moles /volume] in Serum or PlasmaOrdered By: Lj Ryan on 05-18-2023 CO2 [Moles/Vol] 30.5 mmol/L 21.0-31.0 [facility] Chloride [Moles/volume] in S [place] or PlasmaOrdered By: Lj Ryan on 05-18-2023 Chloride [Moles/Vol] 103 mmol/L 98-[address] [facility] Creatinine [Mass/volume] in Serum or PlasmaOrdered By: Lj Ryan on 05-18-2023 Creatinine [Mass/Vol] 1.37 mg/dL 0.60-1.20 [facility] Eosinophils Auto (Bld) [#/Vo l]Ordered By: Lj Ryan on 05-18-2023 Eosinophils (Bld) [#/Vol] 0.1 10*3/uL 0.0-0.45 [facility] [place] Eosinophils/100 WBC Auto (Bl d)Ordered By: Lj Ryan on 05-18-2023 Eosinophils/100 WBC (Bld) 1.9 % . [facility] Erythrocyte distribution wid th Auto (RBC) [Ratio]Ordered By: Lj Ryan on 05-18-2023 Erythrocyte distribution width (RBC) [Ratio] 14.1 % 11.9-15.3 [facility] Glucose [Mass/volume] in Ser um or PlasmaOrdered By: Lj Ryan on 05-18-2023 Glucose [Mass/Vol] 94 mg/dL 70-100 [facility] Comment on above: ADA recommended refe rence rangeRandom Glucose Reference Range is dependent on time and content of last meal. Glucose of more than 200 mg/dL in a nonstressed, ambulatory subject supports the diagnosis of Diabetes Mellitus. Hematocrit Auto (Bld) [Volum e fraction]Ordered By: Lj Ryan on 05-18-2023 Hematocrit (Bld) [Volume fraction] 28.2 % 34.0-46.4 [facility] Hemoglobin [Mass/volume] in BloodOrdered By: Lj Ryan on 05-18-2023 Hemoglobin (Bld) [Mass/Vol] 9.7 g/dL 11.8-15.4 [facility] Leukocytes [#/volume] correc miguel for nucleated erythrocytes in Blood by Automated counOrdered By: Lj Ryan on 05-18-2023 WBC corrected for nucl RBC Auto (Bld) [#/Vol] 6.0 10*3/uL 3.8-11.6 [facility] Lymphocytes Auto (Bld) [#/Vo l]Ordered By: Lj Ryan on 05-18-2023 Lymphocytes (Bld) [#/Vol] 0.9 10*3/uL 1.00-4.8 [facility] Lymphocytes/100 WBC Auto (Bl d)Ordered By: Lj Ryan on 05-18-2023 Lymphocytes/100 WBC (Bld) 15.1 % . [facility] MCH Auto (RBC) [Entitic mass ]Ordered By: Lj Ryan on 05-18-2023 MCH (RBC) [Entitic mass] 30.2 pg 24.7-34.3 [facility] MCHC Auto (RBC) [Mass/Vol]Or dered By: Lj Ryan on 05-18-2023 MCHC (RBC) [Mass/Vol] 34.4 g/dL 32.0-35.0 [facility] MCV Auto (RBC) [Entitic vol] Ordered By: Lj Ryan on 05-18-2023 MCV (RBC) [Entitic vol] 87.7 fL 80-100 [facility] Magnesium [Mass/volume] in S [place] or PlasmaOrdered By: Lj Ryan on 05-18-2023 Magnesium [Mass/Vol] 2.1 mg/dL 1.9-2.[address] [facility] Monocytes Auto (Bld) [#/Vol] Ordered By: Lj Ryan on 05-18-2023 Monocytes (Bld) [#/Vol] 0.5 10*3/uL 0.0-0.8 [facility] Monocytes/100 WBC Auto (Bld) Ordered By: Lj Ryan on 05-18-2023 Monocytes/100 WBC (Bld) 8.7 % . [facility] Neutrophils Auto (Bld) [#/Vo l]Ordered By: Lj Ryan on 05-18-2023 Neutrophils (Bld) [#/Vol] 4.4 10*3/uL 1.8-7.7 [facility] Neutrophils/100 WBC Auto (Bl d)Ordered By: Lj Ryan on 05-18-2023 Neutrophils/100 WBC (Bld) 73.6 % . [facility] No Panel InformationOrdered By: Lj Ryan on 05-18-2023 Estimated GFR (CKD-EPI) 39.034 mL/Min [facility] Creatinine Clearance (Chem 38.04 [facility] Nucleated erythrocytes [Pres ence] in Blood by Automated countOrdered By: Lj Ryan on 05-18-2023 Nucleated RBC Auto Ql (Bld) 0.1 /100{WBC} 0-0.5 [facility] Phosphate [Mass/volume] in S [place] or PlasmaOrdered By: Lj Ryan on 05-18-2023 Phosphate [Mass/Vol] 5.3 mg/dL 3.7-7.[address] [facility] Platelet mean volume Auto (B ld) [Entitic vol]Ordered By: Lj Ryan on 05-18-2023 Platelet mean volume (Bld) [Entitic vol] 7.8 fL 6.3-10.7 [facility] Platelets Auto (Bld) [#/Vol] Ordered By: Lj Ryan on 05-18-2023 Platelets (Bld) [#/Vol] 314 10*3/uL 150-450 [facility] [place] Potassium [Moles/volume] in Serum or PlasmaOrdered By: Lj Ryan on 05-18-2023 Potassium [Moles/Vol] 4.0 mmol/L 3.5-5.1 [facility] RBC Auto (Bld) [#/Vol]Ordere d By: Lj Ryan on 05-18-2023 RBC (Bld) [#/Vol] 3.21 10*6/uL 3.60-5.00 [facility] [place] [facility] Serum or plasma anion gap de terminationOrdered By: Lj Ryan on 05-18-2023 Anion gap [Moles/Vol] 12.5 mmol/L 6.0-15.0 [facility] Sodium [Moles/volume] in Ser um or PlasmaOrdered By: Lj Ryan on 05-18-2023 Sodium [Moles/Vol] 142 mmol/L 136-145 [facility] Urea nitrogen [Mass/volume] in Serum or PlasmaOrdered By: Lj Ryan on 05-18-2023 Urea nitrogen [Mass/Vol] 21 mg/dL 7-25 [facility] [place] WBC Auto (Bld) [#/Vol]Ordere d By: Lj Ryan on 05-18-2023 WBC (Bld) [#/Vol] 6.0 10*3/uL 3.8-11.6 [facility] Alanine aminotransferase [En zymatic activity/volume] in Serum or PlasmaOrdered By: Fernando Ch on 05-17-2023 ALT [Catalytic activity/Vol] 14 U/L 7-52 [facility] [place] Albumin [Mass/volume] in Ser um or Plasma by Bromocresol green (BCG) dye binding methoOrdered By: Fernando Ch on 05-17-2023 Albumin BCG dye [Mass/Vol] 4.0 g/dL 3.5-5.7 [facility] [place] Alkaline phosphatase [Enzyma tic activity/volume] in Serum or PlasmaOrdered By: Fernando Ch on 05-17-2023 ALP [Catalytic activity/Vol] 44 U/L 34-104 [facility] [place] Aspartate aminotransferase [ Enzymatic activity/volume] in Serum or PlasmaOrdered By: Fernando Ch on 05-17-2023 AST [Catalytic activity/Vol] 16 U/L 13-39 [facility] [place] Bilirubin.total [Mass/volume ] in Serum or PlasmaOrdered By: Fernando Ch on 05-17-2023 Bilirubin [Mass/Vol] 0.7 mg/dL 0.3-1.[address] [facility] Creatine kinase [Enzymatic a ctivity/volume] in Serum or PlasmaOrdered By: Fernando Ch on 05-17-2023 CK [Catalytic activity/Vol] 49 U/L 30-223 [facility] [place] Globulin Calc (S) [Mass/Vol] Ordered By: Fernando Ch on 05-17-2023 Globulin (S) [Mass/Vol] 2.9 g/dL [facility] [place] Laboratory - CoagulationOrde red By: Fernando Ch on 05-17-2023 PT Coag (PPP) [Time] 12.5 s 9.0-12.[address] [facility] Monocyte distribution width [Entitic volume] in Blood by AutomatedOrdered By: Fernando Ch on 05-17-2023 Monocyte distribution width Auto (Bld) [Entitic vol] 22.37 % 0.00-20.00 [facility] [place] Comment on above: For adults in ED, MD W > 20.0 may be associated with a higher risk of sepsis during the first 12 hrs of hospital admission Natriuretic peptide B [Mass/ Vol]Ordered By: Fernando Ch on 05-17-2023 Natriuretic peptide B (Bld) [Mass/Vol] 450.0 pg/mL 5-100 [facility] [place] Platelet poor plasma interna tional normalized ratio (INR) by coagulation assay (relatOrdered By: Fernando Ch on 05-17-2023 INR Coag (PPP) [Relative time] 1.1 {INR} [facility] [place] Comment on above: INR Therapeutic Rang e [...] on 05-17-2023 Protein [Mass/Vol] 6.9 g/dL 6.4-8.9 [facility] Serum or plasma albumin/glob ulin mass ratioOrdered By: Fernando Ch on 05-17-2023 Albumin/Globulin [Mass ratio] 1.4 {ratio} [facility] [place] Troponin I.cardiac [Mass/vol ume] in Serum or Plasma by Detection limit <= 0.01 ng/Ordered By: Fernando Ch on 05-17-2023 Troponin I.cardiac DL <= 0.01 ng/mL [Mass/Vol] 10.2 pg/mL 0.0-15.0 [facility] [place] Activated partial thrombopla stin time (aPTT) in platelet poor plasma by coagulation aOrdered By: Jonna Perry on 03-08-2023 aPTT Coag (PPP) [Time] 32.0 s 25.1-36.5 [facility] Band form neutrophils/100 WB C Manual cnt (Bld)Ordered By: Jonna Perry on 03-08-2023 Band form neutrophils/100 WBC (Bld) 4 % 0-5 [facility] [place] Basophils Auto (Bld) [#/Vol] Ordered By: Jonna Perry on 03-08-2023 Basophils (Bld) [#/Vol] N/A [facility] [place] Basophils/100 WBC Auto (Bld) Ordered By: Jonna Perry on 03-08-2023 Basophils/100 WBC (Bld) N/A [facility] [place] Basophils/100 WBC Manual cnt (Bld)Ordered By: Jonna Perry on 03-08-2023 Basophils/100 WBC (Bld) 0 % 0-2 [facility] [place] Carbon dioxide, total [Moles /volume] in Serum or PlasmaOrdered By: Jonna Perry on 03-08-2023 CO2 [Moles/Vol] 33.1 mmol/L 21.0-31.0 [facility] Chloride [Moles/volume] in S courtney or PlasmaOrdered By: Jonna Perry on 03-08-2023 Chloride [Moles/Vol] 104 mmol/L 98-[address] [facility] Cholesterol [Mass/volume] in Serum or PlasmaOrdered By: Jonna Perry on 03-08-2023 Cholesterol [Mass/Vol] 151 mg/dL 140-200 [facility] Comment on above: Chol less than 200 m g/dl low riskChol 201-239 mg/dl borderline riskChol 240 mg/dl and greater high risk Cholesterol in LDL Calc [Mas s/Vol]Ordered By: Jonna Perry on 03-08-2023 Cholesterol in LDL [Mass/Vol] 100 mg/dL 0-100 [facility] [place] Comment on above: LDL ATP III CLASSIFI CATIONLDL less than 100 mg/dL OptimalLDL 100-129 mg/dL Near or above optimalLDL 130-159 mg/dL Borderline highLDL 160-189 mg/dL HighLDL greater than 189 mg/dL Very high Cholesterol in VLDL Calc [Ma ss/Vol]Ordered By: Jonna Perry on 03-08-2023 Cholesterol in VLDL [Mass/Vol] 13 mg/dL [facility] [place] Creatinine [Mass/volume] in Serum or PlasmaOrdered By: Jonna Perry on 03-08-2023 Creatinine [Mass/Vol] 1.14 mg/dL 0.60-1.20 [facility] Eosinophils Auto (Bld) [#/Vo l]Ordered By: Jonna Perry on 03-08-2023 Eosinophils (Bld) [#/Vol] N/A [facility] [place] Eosinophils/100 WBC Auto (Bl d)Ordered By: Jonna Perry on 03-08-2023 Eosinophils/100 WBC (Bld) N/A [facility] [place] Eosinophils/100 WBC Manual c nt (Bld)Ordered By: Jonna Perry on 03-08-2023 Eosinophils/100 WBC (Bld) 2 % 1-3 [facility] [place] Erythrocyte distribution wid th Auto (RBC) [Ratio]Ordered By: Jonna Perry on 03-08-2023 Erythrocyte distribution width (RBC) [Ratio] 14.1 % 11.9-15.3 [facility] [place] Hematocrit Auto (Bld) [Volum e fraction]Ordered By: Jonna Perry on 03-08-2023 Hematocrit (Bld) [Volume fraction] 30.7 % 34.0-46.4 [facility] [place] Hemoglobin [Mass/volume] in BloodOrdered By: Jonna Perry on 03-08-2023 Hemoglobin (Bld) [Mass/Vol] 10.3 g/dL 11.8-15.4 [facility] [place] Laboratory - Chemistry and C hemistry - challengeon 03-08-2023 Cholesterol [Mass/Vol] 151\S\151 [facility] 140-200 [facility] Work [facility]: Comment on above: Chol less than 200 m g/dl low risk Chol 201-239 mg/dl borderline risk Chol 240 mg/dl and greater high risk Cholesterol in LDL [Mass/Vol] 100\S\100 Normal 0-[facility] Work Phone: Comment on above: LDL ATP III CLASSIFI CATION LDL less than 100 mg/dL Optimal LDL 100-129 mg/dL Near or above optimal LDL 130-159 mg/dL Borderline high LDL 160-189 mg/dL High LDL greater than 189 mg/dL Very high Laboratory - CoagulationOrde red By: Jonna Perry on 03-08-2023 PT Coag (PPP) [Time] 12.2 s 9.0-12.[address] [facility] Leukocytes [#/volume] correc miguel for nucleated erythrocytes in Blood by Automated counOrdered By: Jonna Perry on 03-08-2023 WBC corrected for nucl RBC Auto (Bld) [#/Vol] 6.2 10*3/uL 3.8-11.6 [facility] [place] Lymphocytes Auto (Bld) [#/Vo l]Ordered By: Jonna Perry on 03-08-2023 Lymphocytes (Bld) [#/Vol] N/A [facility] [place] Lymphocytes/100 WBC Auto (Bl d)Ordered By: Jonna Perry on 03-08-2023 Lymphocytes/100 WBC (Bld) N/A [facility] [place] Lymphocytes/100 WBC Manual c nt (Bld)Ordered By: Jonna Perry on 03-08-2023 Lymphocytes/100 WBC (Bld) 16 % 18-42 [facility] [place] MCH Auto (RBC) [Entitic mass ]Ordered By: Jonna Perry on 03-08-2023 MCH (RBC) [Entitic mass] 29.0 pg 24.7-34.3 [facility] [place] MCHC Auto (RBC) [Mass/Vol]Or dered By: Jonna Perry on 03-08-2023 MCHC (RBC) [Mass/Vol] 33.6 g/dL 32.0-35.0 [facility] MCV Auto (RBC) [Entitic vol] Ordered By: Jonna Perry on 03-08-2023 MCV (RBC) [Entitic vol] 86.2 fL 80-100 [facility] [place] Metamyelocytes/100 WBC Manua l cnt (Bld)Ordered By: Jonna Perry on 03-08-2023 Metamyelocytes/100 WBC (Bld) 1 % 0-0 [facility] [place] Monocytes Auto (Bld) [#/Vol] Ordered By: Jonna Perry on 03-08-2023 Monocytes (Bld) [#/Vol] N/A [facility] [place] Monocytes/100 WBC Auto (Bld) Ordered By: Jonna Perry on 03-08-2023 Monocytes/100 WBC (Bld) N/A [facility] [place] Monocytes/100 WBC Manual cnt (Bld)Ordered By: Jonna Perry on 03-08-2023 Monocytes/100 WBC (Bld) 3 % 2-11 [facility] [place] Neutrophils Auto (Bld) [#/Vo l]Ordered By: Jonna Perry on 03-08-2023 Neutrophils (Bld) [#/Vol] N/A [facility] [place] Neutrophils/100 WBC Auto (Bl d)Ordered By: Jonna Perry on 03-08-2023 Neutrophils/100 WBC (Bld) N/A [facility] [place] No Panel InformationOrdered By: Jonna Perry on 03-08-2023 Estimated GFR (CKD-EPI) 48.665 mL/Min [facility] [place] [facility] Creatinine Clearance (Chem N/A [facility] [place] No Panel Informationon 03-08 32.0\S\32.0 Normal 25.1-36.5 -[facility] y 250 DO Work Phone: Comment on above: PERFORMED BY:[facility] [place], [place] [id number] MEDICAL DIRECTORJAMAAL MO M.D. 1.1\S\1.1 Normal [facility] y 250 DO Work Phone: [phone] Comment on above: INR Therapeutic Rang [...] valves: 3 - 4.5 12.2\S\12.2 Normal 9.0-12.9 [facility] y 250 DO Work Phone: [phone] 9.0\S\9.0 Normal 6.3-10.7 [facility] y 250 DO Work Phone: [phone] 33.1\S\33.1 above high threshold 21.0-31.0 [facility] y 250 DO Work Phone: [phone] 104\S\104 Normal 98-107 [facility] Lu y 250 DO Work Phone: [phone] 5.1\S\5.1 Normal 3.5-5.1 [facility] y 250 DO Work Phone: [phone] 141\S\141 Normal 136-145 [facility] y 250 DO Work Phone: [phone] 21\S\21 Normal 7-25 [facility] y 250 DO Work Phone: [phone] 48.665\S\48.665 Normal [facility] y 250 DO Work Phone: [phone] 1.14\S\1.14 Normal 0.60-1.20 [facility] y 250 DO Work Phone: [phone] 4.0\S\4.0 Normal <5.0 [facility] y 250 DO Work Phone: Comment on above: PERFORMED BY:[facility] [place], [place] [id number] MEDICAL DIRECTORJAMAAL MO M.D. 13\S\13 Normal [facility] Lu melton 250 DO Work Phone: 67\S\67 Normal 0-149 [facility] Lu melton 250 DO Work Phone: Comment on above: TRIG ATP III CLASSIF ICATION TRIG less than 150 mg/dL Normal TRIG 150-199 mg/dL Borderline high TRIG 200-500 mg/dL High TRIG greater than 500 mg/dL Very high Standard traceable to the Center for Disease Conrtrol and Prevention (CDC) test method. 38\S\38 Normal 35-85 [facility] Lu melton 250 DO Work Phone: Comment on above: HDL CHOL ATP-III CLA SSIFICATION Cardiovascular Risk HDL > or equal to 60 mg/dL LOW HDL < 40 mg/dL HIGH 74\S\74 above high threshold 50-70 [facility] Lu melton 250 DO Work Phone: [phone]\S\276 Normal 150-450 [facility] Lu mel[address] 250 DO Work Phone: 14.1\S\14.1 Normal 11.9-15.3 [facility] Lu melton 250 DO Work Phone: [phone] 33.6\S\33.6 Normal 32.0-35.0 [facility]per[facility]riz melton 250 DO Work Phone: 29.0\S\29.0 Normal 24.7-34.3 [facility]riz melton 250 DO Work Phone: 1\S\1 above high threshold 0-0 [facility] melton 250 DO Work Phone: 0\S\0 Normal 0-2 [facility] y 250 DO Work Phone: [phone] 2\S\2 Normal 1-3 [facility] 250 DO Work Phone: [phone] 3\S\3 Normal 2-11 [facility] 250 DO Work Phone: [phone] 16\S\16 below low threshold 18-42 [facility] 250 DO Work Phone: [phone] 4\S\4 Normal 0-5 [facility] 250 DO Work Phone: [phone] Slight Normal [facility] 250 DO Work Phone: [phone] Comment on above: PERFORMED BY:[place] [id number] [address] [place], [place] [id number] MEDICAL DIRECTORJAMAAL MO M.D. Normal Normal Normal [facility] 250 DO Work Phone: [phone] 86.2\S\86.2 Normal 80-100 [facility] 250 DO Work Phone: [phone] 30.7\S\30.7 below low threshold 34.0-46.4 [facility] 250 DO Work Phone: [phone] 10.3\S\10.3 below low threshold 11.8-15.4 [facility] Heart[facility] y 250 DO Work Phone: [phone] 3.56\S\3.56 below low threshold 3.60-5.00 [facility] 250 DO Work Phone: [phone] 8.6\S\8.6 Normal 3.8-11.6 [facility] 250 DO Work Phone: [phone] 6.2\S\6.2 Normal 3.8-11.6 [facility] 250 DO Work Phone: [phone] Nucleated erythrocytes [Pres ence] in Blood by Automated countOrdered By: Jonna Perry on 03-08-2023 Nucleated RBC Auto Ql (Bld) N/A [facility] [place] Ovalocyte detectionOrdered B y: Jonna Perry on 03-08-2023 Ovalocytes LM Ql (Bld) Slight Fi [facility] Platelet adequacy [Presence] in Blood by Light microscopyOrdered By: Jonna Perry on 03-08-2023 Platelets LM Ql (Bld) Normal Normal [facility] Platelet mean volume Auto (B ld) [Entitic vol]Ordered By: Jonna Perry on 03-08-2023 Platelet mean volume (Bld) [Entitic vol] 9.0 fL 6.3-10.7 [facility] Platelet morphology finding [Identifier] in BloodOrdered By: Jonna Perry on 03-08-2023 Platelet morphology finding Nom (Bld) N/A [facility] [place] Platelet poor plasma interna tional normalized ratio (INR) by coagulation assay (relatOrdered By: Jonna Perry on 03-08-2023 INR Coag (PPP) [Relative time] 1.1 {INR} [facility] [place] Comment on above: INR Therapeutic Rang e [...] (Bld) [#/Vol] 276 10*3/uL 150-450 [facility] [place] Platelets Large [Presence] i n Blood by Light microscopyOrdered By: Jonna Perry on 03-08-2023 Platelets Large LM Ql (Bld) Slight [facility] Poikilocytosis [Presence] in Blood by Light microscopyOrdered By: Jonna Perry on 03-08-2023 Poikilocytosis LM Ql (Bld) Slight [facility] [place] Potassium [Moles/volume] in Serum or PlasmaOrdered By: Jonna Perry on 03-08-2023 Potassium [Moles/Vol] 5.1 mmol/L 3.5-5.1 [facility] RBC Auto (Bld) [#/Vol]Ordere d By: Jonna Perry on 03-08-2023 RBC (Bld) [#/Vol] 3.56 10*6/uL 3.60-5.00 [facility] RBC morphologyOrdered By: Jonna Perry on 03-08-2023 RBC morphology finding Nom (Bld) N/A [facility] [place] Segmented neutrophils/100 WB C Manual cnt (Bld)Ordered By: Jonna Perry on 03-08-2023 Segmented neutrophils/100 WBC (Bld) 74 % 50-70 [facility] [place] Serum or plasma anion gap de terminationOrdered By: Jonna Perry on 03-08-2023 Anion gap [Moles/Vol] 9.0 mmol/L 6.0-15.0 [facility] Serum or plasma high density lipoprotein (HDL) cholesterol measurementOrdered By: Jonna Perry on 03-08-2023 Cholesterol in HDL [Mass/Vol] 38 mg/dL 35-85 [facility] [place] Comment on above: HDL CHOL ATP-III CLA SSIFICATION Cardiovascular RiskHDL > or equal to 60 mg/dL LOWHDL < 40 mg/dL HIGH Serum or plasma total choles terol/high density lipoprotein (HDL) cholesterol mass ratOrdered By: Jonna Perry on 03-08-2023 Cholesterol.total/Chol esterol in HDL [Mass ratio] 4.0 {ratio} <5.0 [facility] [place] Sodium [Moles/volume] in Ser um or PlasmaOrdered By: Jonna Perry on 03-08-2023 Sodium [Moles/Vol] 141 mmol/L 136-145 [facility] Triglyceride [Mass/volume] i n Serum or PlasmaOrdered By: Jonna Perry on 03-08-2023 Triglyceride [Mass/Vol] 67 mg/dL 0-149 [facility] [place] Comment on above: TRIG ATP III CLASSIF ICATIONTRIG less than 150 mg/dL NormalTRIG 150-199 mg/dL Borderline highTRIG 200-500 mg/dL High TRIG greater than 500 mg/dL Very highStandard traceable to the Center for Disease Conrtrol and Prevention (CDC) test method. Urea nitrogen [Mass/volume] in Serum or PlasmaOrdered By: Jonna Perry on 03-08-2023 Urea nitrogen [Mass/Vol] 21 mg/dL 7-25 [facility] [place] WBC Auto (Bld) [#/Vol]Ordere d By: Jonna Perry on 03-08-2023 WBC (Bld) [#/Vol] 8.6 10*3/uL 3.8-11.6 [facility] Office Visit (Cardiology)on 03-07-2023 Follow-up visit [...] associated with accelerated hypertension, was admitted to [place] briefly, diuresed approximately 14 pounds with diuretics. [...] complaint. Vitals Vital Signs Recorded: 07Mar2023 10:14AMRecorded: [id number] 10:04AM [id number], RUE, [id number] (more content not included)... Normal [employer] Tobacco Screening.on 023 Adult depression screening assessment No [facility] y 250 DO Work Phone: Fall risk assessment a) No falls within the last year [facility] 250 DO Work Phone: Tobacco use status CPHS b) No [facility] 250 DO Work Phone: CBC AUTO DIFFon 03-01-2023 BASO # 0.0 103/ul Normal 0.0-0.1 [facility] Comment on above: Performed By: #### C BC #### [facility] [address] [address] [address] Jose David Shanks Basophils/100 WBC (Bld) 0.5 % Normal 0.2-2.0 [facility] Comment on above: Performed By: #### C BC #### [facility] [address] [address] [address] Jose David Shanks EO # 0.1 103/ul Normal 0.0-0.7 [facility] Comment on above: Performed By: #### C BC #### [facility] [address] [address] [address] Jose David Shanks Eosinophils/100 WBC (Bld) 1.2 % Normal 0.9-7.0 [facility] Comment on above: Performed By: #### C BC #### [facility] [address] [address] [address] Jose David Shanks Erythrocyte distribution width (RBC) [Ratio] 13.2 % Normal 11.0-15.0 [facility] Comment on above: Performed By: #### C BC #### [facility] [address] [place] [address] Dr. Jose David Shanks Hematocrit (Bld) [Volume fraction] 33.9 % Critically low 36.0-48.0 [facility] Comment on above: Performed By: #### C BC #### [facility] [address] [place] [address] Dr. Jose David Shanks Hemoglobin (Bld) [Mass/Vol] 11.0 g/dL Critically low 12.0-16.0 [facility] Comment on above: Performed By: #### C BC #### [facility] [address] [place] [address] Dr. Jose David Shanks IG # 0.03 10e3/ul Normal 0.00-0.03 [facility] Comment on above: Performed By: #### C BC #### [facility] [address] [place] [address] Dr. Jose David Shanks IG % 0.5 % Normal 0.0-0.5 [facility] Comment on above: Performed By: #### C BC #### [facility] [address] [place] [address] Dr. Jose David Shanks LYMPH # 0.8 103/ul Critically low 1.2-3.8 [facility] Comment on above: Performed By: #### C BC #### [facility] [address] [place] [address] Dr. Jose David Shanks Lymphocytes/100 WBC (Bld) 13.7 % Critically low 20.5-60.0 [facility] Comment on above: Performed By: #### C BC #### [facility] [address] [place] [address] Dr. Jose David Shanks MANUAL DIFF REQ NO Normal [facility] Comment on above: Performed By: #### C BC #### [facility] [address] [place] [address] Dr. Jose David Shanks MCH (RBC) [Entitic mass] 28.9 pg Normal 26.7-34.0 [facility] Comment on above: Performed By: #### C BC #### [facility] [address] [place] [address] Dr. Jose David Shanks MCHC (RBC) [Mass/Vol] 32.4 g/dL Normal 29.9-35.2 [facility] Comment on above: Performed By: #### C BC #### [facility] [address] [place] [address] Dr. Jose David Shanks MCV (RBC) [Entitic vol] 89.0 fL Normal 81.0-99.0 [facility] Comment on above: Performed By: #### C BC #### [facility] [address] [place] [address] Dr. Jose David Shanks MONO # 0.5 103/ul Normal 0.3-0.8 [facility] Comment on above: Performed By: #### C BC #### [facility] [address] [place] [address] Dr. Jose David Shanks Monocytes/100 WBC (Bld) 8.2 % Normal 1.7-12.0 [facility] Comment on above: Performed By: #### C BC #### [facility] [address] [place] [address] Dr. Jose David Shanks NEUT # 4.3 103/ul Normal 1.4-6.5 [facility] Comment on above: Performed By: #### C BC #### [facility] [address] [place] [address] Dr. Jose David Shanks Neutrophils/100 WBC (Bld) 75.9 % Critically high 43.0-75.0 [facility] Comment on above: Performed By: #### C BC #### [facility] [address] [place] [address] Dr. Jose David Shanks Platelet mean volume (Bld) [Entitic vol] 10.1 fL Normal 9.5-13.5 [facility] Comment on above: Performed By: #### C BC #### [facility] [address] [place] [address] Dr. Jose David Shanks PLT 279 103/ul Normal 150-450 [facility] Comment on above: Performed By: #### C BC #### [facility] Laboratory [address] [place] [address] Dr. Jose David Shanks RBC 3.81 106/ul Critically low 4.20-5.40 [facility] Comment on above: Performed By: #### C BC #### [facility] [address] [place] [address] Dr. Jose David Shanks WBC 5.7 103/ul Normal 4.0-11.0 [facility] Comment on above: Performed By: #### C BC #### [facility] [address] [place] [address] Dr. Jose David Shanks FERRITINon 03-01-2023 Ferritin [Mass/Vol] 180.0 ng/mL Normal 8.0-252.0 [facility] Comment on above: Performed By: #### C BC #### [facility] [address] [place] [address] Dr. Jose David Shanks IRON AND TIBCon 03-01-2023 % SATURATION 23.6 % Normal [facility] Comment on above: Performed By: #### C BC #### [facility] [address] [place] [address] Dr. Jose David Shanks Iron [Mass/Vol] 61.0 ug/dL Normal 50.0-170.0 [facility] Comment on above: Performed By: #### C BC #### [facility] [address] [place] [address] Dr. Jose David Shanks TIBC DIRECT 258.0 ug/dL Normal 250.0-450.0 [facility] Comment on above: Performed By: #### C BC #### [facility] [address] [place] [address] Dr. Jose David Shanks NM STRESS/REST MULTIon 03-01 NM STRESS/REST MULTI Patient: GERMANIA JOAQUINManuel Exam Date: 03/01/2023 : 1940 Gender:F Ordering : DR NATHAN HATHAWAY D.O. Admission #: [id number] Family : Order #: [id number] CLICK HERE TO VIEW EXAM RADIOLOGY REPORT [...] STUDY: PERFUSION DEFECT: LOCATION: Mid-anterior. Apical anterior. [place]. SIZE: Medium (3-4 segments). SEVERITY: Moderate. TYPE: [...] MD on 03/01/2023 at 14:54 Normal [facility] PROF CHEM 8 (BAS METB)on Anion gap [Moles/Vol] 8.8 mmol/L Normal [facility] Comment on above: Performed By: #### L ACT #### [facility] [address] [place] [address] Dr. Jose David Shanks Calcium [Mass/Vol] 9.0 mg/dL Normal 8.5-10.1 [facility] Comment on above: Performed By: #### L ACT #### [facility] [address] [address] [address] Jose David Shanks Chloride [Moles/Vol] 106 mmol/L Normal 98-107 [facility] Comment on above: Performed By: #### L ACT #### [facility] [address] [address] [address] Jose David Shanks CO2 [Moles/Vol] 31.0 mmol/L Normal 21.0-32.0 [facility] Comment on above: Performed By: #### L ACT #### [facility] [address] [address] [address] Jose David Shanks Creatinine [Mass/Vol] 1.18 mg/dL Critically high 0.55-1.02 [facility] Comment on above: Performed By: #### L ACT #### [facility] [address] [address] [address] Jose David Shanks EGFR-AF TUNISIAN 53 mL/min/1.73m2 Critically low >=60 [facility] Comment on above: Performed By: #### L ACT #### [facility] [address] [address] [address] Jose David Shanks EGFR-NON AF TUNISIAN 44 mL/min/1.73m2 Critically low >=60 [facility] Comment on above: Performed By: #### L ACT #### [facility] [address] [place] [address] Dr. Jose David Shanks Glucose [Mass/Vol] 98 mg/dL Normal 74-106 [facility] Comment on above: Performed By: #### L ACT #### [facility] [address] [address] [address] Jose David Shanks Potassium [Moles/Vol] 4.8 mmol/L Normal 3.5-5.1 [facility] Comment on above: Performed By: #### L ACT #### [facility] [address] [address] [address] Jose David Shanks Sodium [Moles/Vol] 141 mmol/L Normal 136-145 [facility] Comment on above: Performed By: #### L ACT #### [facility] [address] [address] [address] Jose David Shanks Urea nitrogen [Mass/Vol] 16.0 mg/dL Normal 7.0-18.0 [facility] Comment on above: Performed By: #### L ACT #### [facility] [address] [place] [address] Dr. Jose David Shanks Urea nitrogen/Creatinine [Mass ratio] 13.6 mg/mg Normal [facility] Comment on above: Performed By: #### L ACT #### [facility] [address] [place] [address] Dr. Jose David Shanks RETICULOCYTEon 03-01-2023 RETIC 1.51 % Normal 0.60-3.10 [facility] Comment on above: Performed By: #### C BC #### [facility] [address] [place] [address] Dr. Jose David Shanks VIT B12 AND FOLATEon 023 Cobalamin (Vitamin B12) [Mass/Vol] 1406.0 pg/mL Critically high 193.0-986.0 [facility] Comment on above: Performed By: #### C BC #### [facility] [address] [place] [address] Dr. Jose David Shanks FOLATE 19.00 ng/mL Normal 8.60-58.90 [facility] Comment on above: Performed By: #### C BC #### [facility] [address] [place] [address] Dr. Jose David Shanks CBC AUTO DIFFon 02-09-2023 BASO # 0.0 103/ul Normal 0.0-0.1 [facility] Comment on above: Performed By: #### C BC #### [facility] [address] [place] [address] Dr. Jose David Shanks Basophils/100 WBC (Bld) 0.6 % Normal 0.2-2.0 [facility] Comment on above: Performed By: #### C BC #### [facility] [address] [place] [address] Dr. Jose David Shanks EO # 0.1 103/ul Normal 0.0-0.7 [facility] Comment on above: Performed By: #### C BC #### [facility] [address] [place] [address] Dr. Jose David Shanks Eosinophils/100 WBC (Bld) 2.7 % Normal 0.9-7.0 [facility] Comment on above: Performed By: #### C BC #### [facility] [address] [place] [address] Dr. Jose David Shanks Erythrocyte distribution width (RBC) [Ratio] 13.5 % Normal 11.0-15.0 [facility] Comment on above: Performed By: #### C BC #### [facility] [address] [place] [address] Dr. Jose David Shanks Hematocrit (Bld) [Volume fraction] 30.0 % Critically low 36.0-48.0 [facility] Comment on above: Performed By: #### C BC #### [facility] [address] [place] [address] Dr. Jose David Shanks Hemoglobin (Bld) [Mass/Vol] 10.0 g/dL Critically low 12.0-16.0 [facility] Comment on above: Performed By: #### C BC #### [facility] [address] [place] [address] Dr. Jose David Shanks IG # 0.02 10e3/ul Normal 0.00-0.03 [facility] Comment on above: Performed By: #### C BC #### [facility] [address] [place] [address] Dr. Jose David Shanks IG % 0.4 % Normal 0.0-0.5 [facility] Comment on above: Performed By: #### C BC #### [facility] [address] [place] [address] Dr. Jose David Shanks LYMPH # 0.9 103/ul Critically low 1.2-3.8 [facility] Comment on above: Performed By: #### C BC #### [facility] [address] [place] [address] Dr. oJse David Shanks Lymphocytes/100 WBC (Bld) 19.3 % Critically low 20.5-60.0 [facility] Comment on above: Performed By: #### C BC #### [facility] [address] [place] [address] Dr. Jose David Shanks MANUAL DIFF REQ NO Normal [facility] Comment on above: Performed By: #### C BC #### [facility] [address] [place] [address] Dr. Jose David Shanks MCH (RBC) [Entitic mass] 29.3 pg Normal 26.7-34.0 [facility] Comment on above: Performed By: #### C BC #### [facility] [address] [place] [address] Dr. Jose David Shanks MCHC (RBC) [Mass/Vol] 33.3 g/dL Normal 29.9-35.2 [facility] Comment on above: Performed By: #### C BC #### [facility] [address] [place] [address] Dr. Jose David Shanks MCV (RBC) [Entitic vol] 88.0 fL Normal 81.0-99.0 [facility] Comment on above: Performed By: #### C BC #### [facility] [address] [place] [address] Dr. Jose David Shanks MONO # 0.4 103/ul Normal 0.3-0.8 [facility] Comment on above: Performed By: #### C BC #### [facility] [address] [place] [address] Dr. Jose David Shanks Monocytes/100 WBC (Bld) 8.3 % Normal 1.7-12.0 [facility] Comment on above: Performed By: #### C BC #### [facility] [address] [place] [address] Dr. Jose David Shanks NEUT # 3.3 103/ul Normal 1.4-6.5 [facility] Comment on above: Performed By: #### C BC #### [facility] [address] [place] [address] Dr. Jose David Shanks Neutrophils/100 WBC (Bld) 68.7 % Normal 43.0-75.0 [facility] Comment on above: Performed By: #### C BC #### [facility] [address] [place] [address] Dr. Jose David Shanks Platelet mean volume (Bld) [Entitic vol] 9.9 fL Normal 9.5-13.5 [facility] Comment on above: Performed By: #### C BC #### [facility] [address] [place] [address] Dr. Jose David Shanks PLT 259 103/ul Normal 150-450 [facility] Comment on above: Performed By: #### C BC #### [facility] [address] [address] [address] Jose David Shanks RBC 3.41 106/ul Critically low 4.20-5.40 [facility] Comment on above: Performed By: #### C BC #### [facility] [address] [address] [address] Jose David Shanks WBC 4.8 103/ul Normal 4.0-11.0 [facility] Comment on above: Performed By: #### C BC #### [facility] [address] [place] [address] Dr. Jose David Shanks PROF CHEM 8 (BAS METB)on Anion gap [Moles/Vol] 11.7 mmol/L Normal [facility] Comment on above: Performed By: #### L ACT #### [facility] [address] [place] [address] Dr. Jose David Shanks Calcium [Mass/Vol] 8.6 mg/dL Normal 8.5-10.1 [facility] Comment on above: Performed By: #### L ACT #### [facility] [address] [place] [address] Dr. Jose David Shanks Chloride [Moles/Vol] 107 mmol/L Normal 98-107 [facility] Comment on above: Performed By: #### L ACT #### [facility] [address] [address] [address] Jose David Shanks CO2 [Moles/Vol] 30.9 mmol/L Normal 21.0-32.0 [facility] Comment on above: Performed By: #### L ACT #### [facility] [address] [place] [address] Dr. Jose David Shanks Creatinine [Mass/Vol] 1.04 mg/dL Critically high 0.55-1.02 [facility] Comment on above: Performed By: #### L ACT #### [facility] [address] [address] [address] Jose David Shanks EGFR-AF TUNISIAN >60 Normal >=60 [facility] Comment on above: Performed By: #### L ACT #### [facility] [address] [address] [address] Jose David Shanks EGFR-NON AF TUNISIAN 51 mL/min/1.73m2 Critically low >=60 [facility] Comment on above: Performed By: #### L ACT #### [facility] [address] [address] [address] Jose David Shanks Glucose [Mass/Vol] 97 mg/dL Normal 74-106 [facility] Comment on above: Performed By: #### L ACT #### [facility] [address] [address] [address] Jose David Shanks Potassium [Moles/Vol] 3.6 mmol/L Normal 3.5-5.1 [facility] Comment on above: Performed By: #### L ACT #### [facility] [address] [address] [address] Jose David Shanks Sodium [Moles/Vol] 146 mmol/L Critically high 136-145 [facility] [place] [facility] Comment on above: Performed By: #### L ACT #### [facility] [address] [address] [address] Jose David Shanks Urea nitrogen [Mass/Vol] 17.0 mg/dL Normal 7.0-18.0 [facility] Comment on above: Performed By: #### L ACT #### [facility] [address] [address] [address] Jose David Shanks Urea nitrogen/Creatinine [Mass ratio] 16.3 mg/mg Normal [facility] Comment on above: Performed By: #### L ACT #### [facility] [address] [address] [address] Jose David Shanks XR CHEST 2 [...] EDWARD MENA Date: 2023-02-09 15:56 Normal [facility] BNPon 02-08-2023 Natriuretic peptide B (Bld) [Mass/Vol] 1007.0 pg/mL Normal <=1,800.0 [facility] Comment on above: Performed By: #### B TELEPHONE ORDER CLERK ROOM SERVICE #### [facility] [address] [place] [address] Dr. Jose David Shanks CARDIAC TALI 3-6on 3 CK [Catalytic activity/Vol] 29 U/L Normal 26-192 [facility] Comment on above: Performed By: #### C MREP #### [facility] [address] [place] [address] Dr. Jose David Shanks CK.MB [Mass/Vol] 0.90 ng/mL Normal <=3.60 [facility] Comment on above: Performed By: #### C MREP #### [facility] [address] [place] [address] Dr. Jose David Shanks HSTROP 69.4 pg/mL Critically high 4.0-51.3 [facility] Comment on above: Result Comment: CUT- OFF POINTS HAVE BEEN ESTABLISHED BASED ON THE FOURTH UNIVERSAL DEFINITIONS OF MYOCARDIAL INFARCTION. THE UPPER REFERENCE LIMIT (URL) OF TROPONIN, DEFINED THE 99TH PERCENTILE OF cTnI DISTRIBUTION IN A REFERENCE POPULATION, HAS BEEN CONFIRMED THE DECISION THRESHOLD FOR [place] DIAGNOSIS. Performed By: #### C MREP #### [facility] [address] [place] [address] Dr. Jose David Shanks CK [Catalytic activity/Vol] 23 U/L Critically low 26-192 [facility] Comment on above: Performed By: #### C MREP #### [facility] [address] [place] [address] Dr. Jose David Shanks CK.MB [Mass/Vol] ng/mL Normal <=3.60 [facility] Comment on above: Performed By: #### C MREP #### [facility] [address] [address] [address] Jose David Shanks HSTROP 72.0 pg/mL Critically high 4.0-51.3 [facility] Comment on above: Result Comment: CUT- OFF POINTS HAVE BEEN ESTABLISHED BASED ON THE FOURTH UNIVERSAL DEFINITIONS OF MYOCARDIAL INFARCTION. THE UPPER REFERENCE LIMIT (URL) OF TROPONIN, DEFINED THE 99TH PERCENTILE OF cTnI DISTRIBUTION IN A REFERENCE POPULATION, HAS BEEN CONFIRMED THE DECISION THRESHOLD FOR [place] DIAGNOSIS. Performed By: #### C MREP #### [facility] [address] [place] [address] Dr. Jose David Shanks CARDIAC TALI ADMITon 023 CK [Catalytic activity/Vol] 31 U/L Normal 26-192 [facility] Comment on above: Performed By: #### C MADM, BMP #### [facility] [address] [place] [address] Dr. Jose David Shanks CK.MB [Mass/Vol] ng/mL Normal <=3.60 [facility] Comment on above: Performed By: #### C MADM, BMP #### [facility] [address] [place] [address] Dr. Jose David Shanks HSTROP 26.3 pg/mL Normal 4.0-51.3 [facility] Comment on above: Result Comment: CUT- OFF POINTS HAVE BEEN ESTABLISHED BASED ON THE FOURTH UNIVERSAL DEFINITIONS OF MYOCARDIAL INFARCTION. THE UPPER REFERENCE LIMIT (URL) OF TROPONIN, DEFINED THE 99TH PERCENTILE OF cTnI DISTRIBUTION IN A REFERENCE POPULATION, HAS BEEN CONFIRMED THE DECISION THRESHOLD FOR [place] DIAGNOSIS. Performed By: #### C MADM, BMP #### [facility] [address] [place] [address] Dr. Jose David Shanks MAMI 52 ng/mL Normal 9-82 [facility] Comment on above: Performed By: #### C MADM, BMP #### [facility] [address] [place] [address] Dr. Jose David Shanks CBC AUTO DIFFon 02-08-2023 BASO # 0.0 103/ul Normal 0.0-0.1 [facility] Comment on above: Performed By: #### L ACT #### [facility] [address] [place] [address] Dr. Jose David Shanks Basophils/100 WBC (Bld) 0.3 % Normal 0.2-2.0 [facility] Comment on above: Performed By: #### L ACT #### [facility] [address] [place] [address] Dr. Jose David Shanks EO # 0.1 103/ul Normal 0.0-0.7 [facility] Comment on above: Performed By: #### L ACT #### [facility] [address] [place] [address] Dr. Jose David Shanks Eosinophils/100 WBC (Bld) 0.5 % Critically low 0.9-7.0 [facility] Comment on above: Performed By: #### L ACT #### [facility] [address] [place] [address] Dr. Jose David Shanks Erythrocyte distribution width (RBC) [Ratio] 13.4 % Normal 11.0-15.0 [facility] Comment on above: Performed By: #### L ACT #### [facility] [address] [place] [address] Dr. Jose David Shanks Hematocrit (Bld) [Volume fraction] 33.0 % Critically low 36.0-48.0 [facility] Comment on above: Performed By: #### L ACT #### [facility] [address] [place] [address] Dr. Jose David Shanks Hemoglobin (Bld) [Mass/Vol] 11.1 g/dL Critically low 12.0-16.0 [facility] Comment on above: Performed By: #### L ACT #### [facility] [address] [place] [address] Dr. Jose David Shanks IG # 0.06 10e3/ul Critically high 0.00-0.03 [facility] Comment on above: Performed By: #### L ACT #### [facility] [address] [place] [address] Dr. Jose David Shanks IG % 0.5 % Normal 0.0-0.5 [facility] Comment on above: Performed By: #### L ACT #### [facility] [address] [address] [address] Jose David Shanks LYMPH # 0.8 103/ul Critically low 1.2-3.8 [facility] Comment on above: Performed By: #### L ACT #### [facility] [address] [place] [address] Dr. Jose David Shanks Lymphocytes/100 WBC (Bld) 7.0 % Critically low 20.5-60.0 [facility] Comment on above: Performed By: #### L ACT #### [facility] [address] [place] [address] Dr. Jose David Shanks MANUAL DIFF REQ NO Normal [facility] Comment on above: Performed By: #### L ACT #### [facility] [address] [place] [address] Dr. Jose David Shanks MCH (RBC) [Entitic mass] 29.6 pg Normal 26.7-34.0 [facility] Comment on above: Performed By: #### L ACT #### [facility] [address] [place] [address] Dr. Jose David Shanks MCHC (RBC) [Mass/Vol] 33.6 g/dL Normal 29.9-35.2 [facility] Comment on above: Performed By: #### L ACT #### [facility] [address] [place] [address] Dr. Jose David Shanks MCV (RBC) [Entitic vol] 88.0 fL Normal 81.0-99.0 [facility] Comment on above: Performed By: #### L ACT #### [facility] [address] [place] [address] Dr. Jose David Shanks MONO # 0.6 103/ul Normal 0.3-0.8 [facility] Comment on above: Performed By: #### L ACT #### [facility] [address] [address] [address] Jose David Shanks Monocytes/100 WBC (Bld) 5.4 % Normal 1.7-12.0 [facility] Comment on above: Performed By: #### L ACT #### [facility] [address] [address] [address] Jose David Shanks NEUT # 9.9 103/ul Critically high 1.4-6.5 [facility] Comment on above: Performed By: #### L ACT #### [facility] [address] [place] [address] Dr. Jose David Shanks Neutrophils/100 WBC (Bld) 86.3 % Critically high 43.0-75.0 [facility] Comment on above: Performed By: #### L ACT #### [facility] [address] [place] [address] Dr. Jose David Shanks Platelet mean volume (Bld) [Entitic vol] 10.1 fL Normal 9.5-13.5 [facility] Comment on above: Performed By: #### L ACT #### [facility] [address] [place] [address] Dr. Jose David Shanks PLT 333 103/ul Normal 150-450 [facility] Comment on above: Performed By: #### L ACT #### [facility] [address] [place] [address] Dr. Jose David Shanks RBC 3.75 106/ul Critically low 4.20-5.40 [facility] Comment on above: Performed By: #### L ACT #### [facility] [address] [place] [address] Dr. Jose David Shanks WBC 11.5 103/ul Critically high 4.0-11.0 [facility] Comment on above: Performed By: #### L ACT #### [facility] [address] [place] [address] Dr. Jose David Shanks CULTURE BLOODon 02-08-2023 Microscopic examination of blood, culture Culture Observations: NO GROWTH AT 5 DAYS. Normal [facility] Comment on above: Performed By: #### L ACT #### [facility] [address] [place], [place] [address] Dr. Jose David Shanks Microscopic examination of blood, culture Culture Observations: NO GROWTH AT 5 DAYS. Normal [facility] Comment on above: Performed By: #### L ACT #### [facility] [address] [place], [place] [address] Dr. Jose David Shanks ECHOCARDIO M/2D COMPLETEon 0 02-08-2023 ECHOCARDIO M/2D COMPLETE Patient: LASHAUN JOAQUIN Exam Date: 02/08/2023 : 1940 Gender:F Ordering : DR KOFI SCOTT . Admission #: [id number] Family : DR NATHAN HATHAWAY D.O. Order #: [id number] CLICK HERE TO VIEW EXAM ECHOCARDIOGRAM REPORT [...] Payne M.D. on 02/09/2023 at 19:11 Normal [facility] LACTATE/LACTIC ACIDon 2022 Lactate [Moles/Vol] 1.4 mmol/L Normal 0.4-2.0 [facility] Comment on above: Performed By: #### L ACT #### [facility] [address] [address] [address] Jose David Shanks Lactate [Moles/Vol] 1.4 mmol/L Normal 0.4-2.0 [facility] Comment on above: Performed By: #### L ACT #### [facility] [address] [place] [address] Dr. Jose David Shanks PROF CHEM 8 (BAS METB)on Anion gap [Moles/Vol] 11.9 mmol/L Normal [facility] Comment on above: Performed By: #### C ELZA, BMP #### [facility] [address] [place] [address] Dr. Jose David Shanks Calcium [Mass/Vol] 9.0 mg/dL Normal 8.5-10.1 [facility] Comment on above: Performed By: #### C ELZA, BMP #### [facility] [address] [place] [address] Dr. Jose David Shanks Chloride [Moles/Vol] 105 mmol/L Normal 98-107 [facility] Comment on above: Performed By: #### C ELZA, BMP #### [facility] [address] [place] [address] Dr. Jose David Shanks CO2 [Moles/Vol] 28.2 mmol/L Normal 21.0-32.0 [facility] Comment on above: Performed By: #### C ELZA, BMP #### [facility] [address] [place] [address] Dr. Jose David Shanks Creatinine [Mass/Vol] 0.99 mg/dL Normal 0.55-1.02 [facility] Comment on above: Performed By: #### C MADM, BMP #### [facility] [address] [address] [address] Jose David Shanks EGFR-AF TUNISIAN >60 Normal >=60 [facility] Comment on above: Performed By: #### C MADM, BMP #### [facility] [address] [address] [address] Jose David Shanks EGFR-NON AF TUNISIAN 54 mL/min/1.73m2 Critically low >=60 [facility] Comment on above: Performed By: #### C MADM, BMP #### [facility] [address] [address] [address] Jose David Shanks Glucose [Mass/Vol] 123 mg/dL Critically high 74-106 T [facility] Comment on above: Performed By: #### C MADM, BMP #### [facility] [address] [address] [address] Jose David Shanks Potassium [Moles/Vol] 4.1 mmol/L Normal 3.5-5.1 [facility] Comment on above: Performed By: #### C MADM, BMP #### [facility] [address] [address] [address] Jose David Shanks Sodium [Moles/Vol] 141 mmol/L Normal 136-145 [facility] Comment on above: Performed By: #### C MADM, BMP #### [facility] [address] [address] [address] Jose David Shanks Urea nitrogen [Mass/Vol] 14.0 mg/dL Normal 7.0-18.0 [facility] Comment on above: Performed By: #### C MADM, BMP #### [facility] [address] [address] [address] Jose David Shanks Urea nitrogen/Creatinine [Mass ratio] 14.1 mg/mg Normal [facility] Comment on above: Performed By: #### C MADM, BMP #### [facility] [address] [address] [address] Jose David Shanks RESPIRATORY PANEL PLUSon Adenovirus Not detected Normal NOT DETECTED The [facility] Comment on above: Performed By: #### R SPLUS #### [facility] [address] [place] [address] Dr. Jose David Mccormack Parapertusis Not detected Normal NOT DETECTED The [facility] Comment on above: Performed By: #### R SPLUS #### [facility] [address] [place] [address] Dr. Jose David Mccormack Pertussis Not detected Normal NOT DETECTED The [facility] Comment on above: Performed By: #### R SPLUS #### [facility] [address] [place] [address] Dr. Jose David Shanks Chlamydia Pneumoniae Not detected Normal NOT DETECTED The [facility] Comment on above: Performed By: #### R SPLUS #### [facility] [address] [place] [address] Dr. Jose David Shanks Coronavirus 229E Not detected Normal NOT DETECTED The [facility] Comment on above: Performed By: #### R SPLUS #### [facility] [address] [place] [address] Dr. Jose David Shanks Coronavirus HKU1 Not detected Normal NOT DETECTED The [facility] Comment on above: Performed By: #### R SPLUS #### [facility] [address] [place] [address] Dr. Jose David Shanks Coronavirus NL63 Not detected Normal NOT DETECTED The [facility] Comment on above: Performed By: #### R SPLUS #### [facility] [address] [place] [address] Dr. Jose David Shanks Coronavirus OC43 Not detected Normal NOT DETECTED The [facility] Comment on above: Performed By: #### R SPLUS #### [facility] [address] [place] [address] Dr. Jose David Shanks Influenza A H1 Not detected Normal NOT DETECTED The [facility] Comment on above: Performed By: #### R SPLUS #### [facility] [address] [place] [address] Dr. Jose David Shanks Influenza A H1 2009 Not detected Normal NOT DETECTED The [facility] Comment on above: Performed By: #### R SPLUS #### [facility] [address] [place] [address] Dr. Jose David Shanks Influenza A H3 Not detected Normal NOT DETECTED The [facility] Comment on above: Performed By: #### R SPLUS #### [facility] [address] [place] [address] Dr. Jose David Shanks Influenza B Not detected Normal NOT DETECTED The [facility] Comment on above: Performed By: #### R SPLUS #### [facility] [address] [place] [address] Dr. Jose David Shanks Metapneumovirus Not detected Normal NOT DETECTED The [facility] Comment on above: Performed By: #### R SPLUS #### [facility] [address] [place] [address] Dr. Jose David Shanks Mycoplas. Pneumoniae Not detected Normal NOT DETECTED The [facility] Comment on above: Performed By: #### R SPLUS #### [facility] [address] [place] [address] Dr. Jose David Shanks Parainfluenza 1 Not detected Normal NOT DETECTED The [facility] Comment on above: Performed By: #### R SPLUS #### [facility] [address] [place] [address] Dr. Jose David Shanks Parainfluenza 2 Not detected Normal NOT DETECTED The [facility] Comment on above: Performed By: #### R SPLUS #### [facility] [address] [place] [address] Dr. Jose David Shanks Parainfluenza 3 Not detected Normal NOT DETECTED The [facility] Comment on above: Performed By: #### R SPLUS #### [facility] [address] [place] [address] Dr. Jose David Shanks Parainfluenza 4 Not detected Normal NOT DETECTED The [facility] Comment on above: Performed By: #### R SPLUS #### [facility] [address] [place] [address] Dr. Jose David Shanks Rhino/Enterovirus Not detected Normal NOT DETECTED The [facility] Comment on above: Performed By: #### R SPLUS #### [facility] [address] [place] [address] Dr. Jose David Shanks RP2 Header 1 RESPIRATORY PANEL: VIRUSES Normal [facility] Comment on above: Performed By: #### R SPLUS #### [facility] [address] [address] [address] Jose David Shanks RP2 Header 2 RESPIRATORY PANEL: BACTERIA Normal [facility] Comment on above: Performed By: #### R SPLUS #### [facility] [address] [address] [address] Jose aDvid Shanks RSV Not detected Normal NOT DETECTED The [facility] Comment on above: Performed By: #### R SPLUS #### [facility] [address] [address] [address] Jose David Shanks SARS-CoV-2 (COVID-19) RNA ZABRINA+probe Ql (Unsp spec) Not detected Normal NOT DETECTED The [facility] Comment on above: Performed By: #### R SPLUS #### [facility] [address] [place] [address] Dr. Jose David Shanks XR CHEST 1 [...] Petra SAHU Date: 2023-02-08 05:21 Normal [facility] MAMM SCREEN 3D SCARLETT CADon 01-08-2023 MG MAMM SCREEN 3D SCARLETT CAD Patient: LASHAUN JOAQUIN Exam Date: 01/08/2023 : 1940 Gender:F Ordering : DR NATHAN HATHAWAY D.O. Admission #: [id number] Family : Order #: [id number] CLICK HERE TO VIEW EXAM RADIOLOGY REPORT [...] lung cancer at age 62. LOCATION: [facility] BREAST COMPOSITION: Extremely dense, which lowers [...] MD on 01/08/2023 at 11:24 Normal [facility] US ST HEAD_NECKon 09-11-[address] [...] WILLIAM DOMINGUEZ Date: 2022-09-11 17:07 Normal [facility] CT Abdomen and Pelvis W cont [...] any questions regarding this interpretation, please call [phone]. If you are unable to reach us at the number above, please feel free to contact [facility] at [phone]. DIVISION OF RADIOLOGY * * *Final Report* * * DATE OF EXAM: Aug 28 2022 1:36PM [facility] 0530 - CT ABD/PEL W IVCON / [...] chest CT performed will be reported separately. Senior Copywriter (topogram) images: No additional findings. DIVISION OF RADIOLOGY Provider, [facility] - 08/28/2022 * * *Final Report* * * DATE OF EXAM: Aug 28 2022 1:36PM [facility] 0530 - CT ABD/PEL W IVCON / [...] chest CT performed will be reported separately. Senior Copywriter (topogram) images: No additional findings. IMPRESSION IMPRESSION: [...] any questions regarding this interpretation, please call [phone]. If you are unable to reach us at the number above, please feel free to contact [facility] at [phone]. [facility] CT Abdomen and Pelvis W cont rast IVOrdered By: [facility] Provider on 08-28-[address] [facility] [address] Chest W contrast Rivka IMPRESSION: [...] any questions regarding this interpretation, please call [phone]. If you are unable to reach us at the number above, please feel free to contact [facility] at [phone]. DIVISION OF RADIOLOGY * * *Final Report* * * DATE OF EXAM: Aug 28 2022 1:36PM [facility] 0539 - CT CHEST W IVCON / [...] was performed concurrently and is reported separately. Senior Copywriter (topogram) images: No additional findings. DIVISION OF RADIOLOGY Provider, Thee Stephens [facility] - 08/28/2022 * * *Final Report* * * DATE OF EXAM: Aug 28 2022 1:36PM [facility] 0539 - CT CHEST W IVCON / [...] was performed concurrently and is reported separately. Senior Copywriter (topogram) images: No additional findings. IMPRESSION IMPRESSION: [...] any questions regarding this interpretation, please call [phone]. If you are unable to reach us at the number above, please feel free to contact [facility] at [phone]. [facility] No Panel Informationon 08-28 Radiology Study observation (narrative) [facility] Covid-19 PCR (CVDTBH)on SARS-CoV-2 (COVID-19) RNA ZABRINA+probe Ql (Unsp spec) Detected Critically abnormal NOT DETECTED [facility] Comment on above: Result Comment: This test is not yet approved or cleared by the [place] FDA. When there are no FDA-approved or cleared tests available, and other criteria are met, FDA can make tests available under an emergency access mechanism called an Emergency Use Authorization (EUA). The EUA for this test is supported by the Radiagraph Operator of Health and Human Service's (HHS's) declaration [...] longer be used). Performed By: #### [facility] #### [facility] [address] [address] [address] Jose David Shanks Vital Signs Date Time Vital Sign Value Performing Clinician Facility 08-04-2025 10:44-0400 Body height 160.02 cm Nathan Hathaway DO Work Phone: [facility] 08-04-2025 10:44-0400 Body mass index (BMI) [Ratio] 34.5 kg/m2 Nathan Ball DO Work Phone: [facility] 08-04-2025 10:44-0400 Body temperature 97.6 [degF] Nathan Ball DO Work Phone: [facility] 08-04-2025 10:44-0400 Body weight 88.45 kg Nathan Ball DO Work Phone: [facility] 08-04-2025 10:44-0400 Diastolic blood pressure 50 mm[Hg] Nathan Ball DO Work Phone: [facility] 08-04-2025 10:44-0400 Heart rate 69 /min Nathan Ball DO Work Phone: [facility] 08-04-2025 10:44-0400 SaO2% (BldA) [Mass fraction] 96 % Nathan Ball DO Work Phone: [facility] 08-04-2025 10:44-0400 Systolic blood pressure 150 mm[Hg] Nathan Ball DO Work Phone: [facility] 07-21-2025 15:53-0400 Body height 166.37 cm Nathan Ball DO Work Phone: [facility] 07-21-2025 15:53-0400 Body mass index (BMI) [Ratio] 31.9 kg/m2 Nathan Ball DO Work Phone: [facility] 07-21-2025 15:53-0400 Body weight 88.45 kg Nathan Ball DO Work Phone: [facility] 07-21-2025 15:53-0400 Diastolic blood pressure 76 mm[Hg] Nathan Ball DO Work Phone: [facility] 07-21-2025 15:53-0400 Diastolic blood pressure 85 mm[Hg] Nathan Ball DO Work Phone: [facility] 07-21-2025 15:53-0400 Heart rate 76 /min Nathan Ball DO Work Phone: [facility] 07-21-2025 15:53-0400 Respiratory rate 12 /min Nathan Ball DO Work Phone: [facility] 07-21-2025 15:53-0400 Systolic blood pressure 172 mm[Hg] Nathan Ball DO Work Phone: [facility] 07-21-2025 15:53-0400 Systolic blood pressure 140 mm[Hg] Nathan Ball DO Work Phone: [facility] 07-08-2025 10:09-0400 Diastolic blood pressure 68 mm[Hg] Paolo Casillas APRN.DENTISTRY TEACHER Work Phone: [facility] Comment on above: recheck BP [facility] 07-08-2025 10:09-0400 Systolic blood pressure 178 mm[Hg] Paolo Casillas APRN.DENTISTRY TEACHER Work Phone: [facility] Comment on above: recheck BP [facility] 07-08-2025 10:01-0400 Body height 166.4 cm Paolo Casillas APRN.DENTISTRY TEACHER Work Phone: [facility] 07-08-2025 10:01-0400 Body mass index (BMI) [Ratio] 33.15 kg/m2 Paolo Casillas APRN.DENTISTRY TEACHER Work Phone: [facility] 07-08-2025 10:01-0400 Body temperature 96.8 [degF] Paolo Casillas APRN.DENTISTRY TEACHER Work Phone: [facility] 07-08-2025 10:01-0400 Body weight 91.8 kg Paolo Casillas APRN.DENTISTRY TEACHER Work Phone: [facility] 07-08-2025 10:01-0400 Heart rate 66 /min Paolo Casillas APRN.DENTISTRY TEACHER Work Phone: [facility] 07-08-2025 10:01-0400 Respiratory rate 18 /min Paolo Casillas APRN.DENTISTRY TEACHER Work Phone: [facility] 07-08-2025 10:01-0400 SaO2% (BldA) [Mass fraction] 95 % Paolo Casillas APRN.DENTISTRY TEACHER Work Phone: [facility] 06-19-2025 09:31-0400 Body height 166.37 cm Nathan Ball DO Work Phone: [facility] 06-19-2025 09:31-0400 Body mass index (BMI) [Ratio] 32.4 kg/m2 Nathan Ball DO Work Phone: [facility] 06-19-2025 09:31-0400 Body weight 89.81 kg Nathan Ball DO Work Phone: [facility] 06-19-2025 09:31-0400 Diastolic blood pressure 70 mm[Hg] Nathan Ball DO Work Phone: [facility] 06-19-2025 09:31-0400 Heart rate 62 /min Nathan Ball DO Work Phone: [facility] 06-19-2025 09:31-0400 Respiratory rate 14 /min Nathan Ball DO Work Phone: [facility] 06-19-2025 09:31-0400 SaO2% (BldA) [Mass fraction] 96 % Nathan Ball DO Work Phone: [facility] 06-19-2025 09:31-0400 Systolic blood pressure 146 mm[Hg] Nathan Ball DO Work Phone: [facility] 05-19-2025 15:33-0400 Body height 166.37 cm Nathan Ball DO Work Phone: [facility] 05-19-2025 15:33-0400 Body mass index (BMI) [Ratio] 31.8 kg/m2 Nathan Ball DO Work Phone: [facility] 05-19-2025 15:33-0400 Body weight 88.13 kg Nathan Ball DO Work Phone: [facility] 05-19-2025 15:33-0400 Diastolic blood pressure 74 mm[Hg] Nathan Ball DO Work Phone: [facility] 05-19-2025 15:33-0400 Heart rate 67 /min Nathan Ball DO Work Phone: [facility] 05-19-2025 15:33-0400 Respiratory rate 14 /min Nathan Ball DO Work Phone: [facility] 05-19-2025 15:33-0400 SaO2% (BldA) [Mass fraction] 96 % Nathan Ball DO Work Phone: [facility] 05-19-2025 15:33-0400 Systolic blood pressure 148 mm[Hg] Nathan Ball DO Work Phone: [facility] 03-19-2025 11:22-0400 Body height 166.37 cm Nathan Ball DO Work Phone: [facility] 03-19-2025 11:22-0400 Body mass index (BMI) [Ratio] 31.6 kg/m2 Nathan Ball DO Work Phone: [facility] 03-19-2025 11:22-0400 Body weight 87.54 kg Nathan Ball DO Work Phone: [facility] 03-19-2025 11:22-0400 Diastolic blood pressure 89 mm[Hg] Nathan Ball DO Work Phone: [facility] 03-19-2025 11:22-0400 Heart rate 66 /min Nathan Ball DO Work Phone: [facility] 03-19-2025 11:22-0400 Respiratory rate 12 /min Nathan Ball DO Work Phone: [facility] 03-19-2025 11:22-0400 SaO2% (BldA) [Mass fraction] 97 % Nathan Ball DO Work Phone: [facility] 03-19-2025 11:22-0400 Systolic blood pressure 139 mm[Hg] Nathan Ball DO Work Phone: [facility] 03-17-2025 10:42-0400 Body height 165.[address] 03-17-2025 10:42-0400 Body mass index (BMI) [Ratio] 33.28 kg/m2 [address] 03-17-2025 10:42-0400 Body weight 90.[address] 03-17-2025 10:42-0400 Diastolic blood pressure 60 mm[Hg] [address] 03-17-2025 10:42-0400 Systolic blood pressure 120 mm[Hg] [address] 03-13-2025 13:25-0400 Body height 166.37 cm Nathan Ball DO Work Phone: [facility] 03-13-2025 13:25-0400 Body mass index (BMI) [Ratio] 33 kg/m2 Nathan Ball DO Work Phone: [facility] 03-13-2025 13:25-0400 Body weight 91.28 kg Nathan Ball DO Work Phone: [facility] 03-13-2025 13:25-0400 Diastolic blood pressure 68 mm[Hg] Nathan Ball DO Work Phone: [facility] 03-13-2025 13:25-0400 Heart rate 90 /min Nathan Ball DO Work Phone: [facility] 03-13-2025 13:25-0400 Respiratory rate 12 /min Nathan Ball DO Work Phone: [facility] 03-13-2025 13:25-0400 Systolic blood pressure 148 mm[Hg] Nathan Ball DO Work Phone: [facility] 02-25-2025 08:46-0400 Body height 165.1 cm Reyna [...] Nathan Ball DO Work Phone: [facility] 02-12-2025 10:20-0400 Heart rate 56 /min Nathan Ball DO Work Phone: [facility] 02-12-2025 10:20-0400 Respiratory rate 18 /min Nathan Ball DO Work Phone: [facility] 02-12-2025 10:20-0400 SaO2% (BldA) [Mass fraction] 97 % Nathan Ball DO Work Phone: [facility] 02-12-2025 10:20-0400 Systolic blood pressure 190 mm[Hg] Nathan Ball DO Work Phone: [facility] 02-12-2025 06:29-0400 Body height 165.1 cm Nathan Ball DO Work Phone: [facility] 02-12-2025 06:29-0400 Body temperature 98.3 [degF] Nathan Ball DO Work Phone: [facility] 02-12-2025 06:29-0400 Body weight 90.9 kg Nathan Ball DO Work Phone: [facility] 01-22-2025 10:20-0400 Body height 166.37 cm Nathan Ball DO Work Phone: [facility] 01-22-2025 10:20-0400 Body mass index (BMI) [Ratio] 31.9 kg/m2 Nathan Ball DO Work Phone: [facility] 01-22-2025 10:20-0400 Body weight 88.45 kg Nathan Ball DO Work Phone: [facility] 01-22-2025 10:20-0400 Diastolic blood pressure 64 mm[Hg] Nathan Ball DO Work Phone: [facility] 01-22-2025 10:20-0400 Heart rate 65 /min Nathan Ball DO Work Phone: [facility] 01-22-2025 10:20-0400 Respiratory rate 12 /min Nathan Ball DO Work Phone: [facility] 01-22-2025 10:20-0400 Systolic blood pressure 215 mm[Hg] Nathan Ball DO Work Phone: [facility] 01-12-2025 11:10-0400 Body height 165.1 cm Holden Rosado ARC TRIMMER-DENTISTRY TEACHER Work Phone: [facility] 01-12-2025 11:10-0400 Body mass index (BMI) [Ratio] 33.28 kg/m2 Holden Rosado ARC TRIMMER-DENTISTRY TEACHER Work Phone: [facility] 01-12-2025 11:10-0400 Body weight 90.72 kg Holden Rosado ARC TRIMMER-DENTISTRY TEACHER Work Phone: [facility] 01-12-2025 11:10-0400 Diastolic blood pressure 60 mm[Hg] Holden Rosado ARC TRIMMER-DENTISTRY TEACHER Work Phone: [facility] 01-12-2025 11:10-0400 Heart rate 60 /min Holden Rosado [employer] TRIMMER[employer]DENTISTRY TEACHER Work Phone: [facility] 01-12-2025 11:10-0400 Systolic blood pressure 124 mm[Hg] Holden Rosado [employer] TRIMMER[employer]DENTISTRY TEACHER Work Phone: [facility] 12-16-2024 10:50-0500 Body height 166.37 cm Nathan Ball DO Work Phone: [facility] 12-16-2024 10:50-0500 Body mass index (BMI) [Ratio] 32 kg/m2 Nathan Ball DO Work Phone: [facility] 12-16-2024 10:50-0500 Body weight 88.59 kg Nathan Ball DO Work Phone: [facility] 12-16-2024 10:50-0500 Diastolic blood pressure 67 mm[Hg] Nathan Ball DO Work Phone: [facility] 12-16-2024 10:50-0500 Heart rate 56 /min Nathan Ball DO Work Phone: [facility] 12-16-2024 10:50-0500 SaO2% (BldA) [Mass fraction] 97 % Nathan Ball DO Work Phone: [facility] 12-16-2024 10:50-0500 Systolic blood pressure 136 mm[Hg] Nathan Ball DO Work Phone: [facility] 11-25-2024 13:55-0500 Body height 165.1 cm Reyna [...] Nathan Ball DO Work Phone: [facility] 11-17-2024 13:05-0500 Heart rate 68 /min Nathan Ball DO Work Phone: [facility] 11-17-2024 13:05-0500 Respiratory rate 16 /min Nathan Ball DO Work Phone: [facility] 11-17-2024 13:05-0500 SaO2% (BldA) [Mass fraction] 94 % Nathan Ball DO Work Phone: [facility] 11-17-2024 13:05-0500 Systolic blood pressure 163 mm[Hg] Nathan Ball DO Work Phone: [facility] 11-17-2024 10:05-0500 Body height 166.37 cm Nathan Ball DO Work Phone: [facility] 11-17-2024 10:05-0500 Body weight 89.35 kg Nathan Ball DO Work Phone: [facility] 10-08-2024 10:40-0500 Body height 165.1 cm Edinson Perry DO Work Phone: [facility] 10-08-2024 10:40-0500 Body mass index (BMI) [Ratio] 33.12 kg/m2 Edinson Perry DO Work Phone: [facility] 10-08-2024 10:40-0500 Body weight 90.27 kg Edinson Perry DO Work Phone: [facility] 10-08-2024 10:40-0500 Diastolic blood pressure 60 mm[Hg] Edinson Perry DO Work Phone: [facility] 10-08-2024 10:40-0500 Heart rate 78 /min Edinson Perry DO Work Phone: [facility] 10-08-2024 10:40-0500 Systolic blood pressure 124 mm[Hg] Edinson Perry DO Work Phone: [facility] 09-11-2024 10:19-0500 Body height 165.1 cm [facility] 09-11-2024 10:190500 Body mass index (BMI) [Ratio] 32.3 kg/m2 [facility] 09-11-2024 10:190500 Body weight 88.13 kg [facility] 09-11-2024 10:190500 Diastolic blood pressure 54 mm[Hg] [facility] 09-11-2024 10:19-0500 Heart rate 63 /min [facility] 09-11-2024 10:190500 SaO2% (BldA) [Mass fraction] 97 % [facility] 09-11-2024 10:190500 Systolic blood pressure 118 mm[Hg] [facility] 06-03-2024 10:54-0400 Body height 165.1 cm DO Nathan Ball Work Phone: [facility] 06-03-2024 10:54-0400 Body mass index (BMI) [Ratio] 26.8 kg/m2 DO Nathan Ball Work Phone: [facility] 06-03-2024 10:54-0400 Body weight 73.02 kg DO Nathan Ball Work Phone: [facility] 06-03-2024 10:54-0400 Diastolic blood pressure 89 mm[Hg] DO Nathan Ball Work Phone: [facility] 06-03-2024 10:54-0400 Heart rate 56 /min DO Nathan Ball Work Phone: [facility] 06-03-2024 10:54-0400 Respiratory rate 12 /min DO Nathan Ball Work Phone: [facility] 06-03-2024 10:54-0400 Systolic blood pressure 139 mm[Hg] DO Nathan Ball Work Phone: [facility] 04-21-2024 10:21-0400 Body mass index (BMI) [Ratio] 32.98 kg/m2 Holden Rosado AR[employer] TRIMMER-DENTISTRY TEACHER Work Phone: [facility] 04-21-2024 10:21-0400 Body weight 89.9 kg Holden Rosado ARC TRIMMER-DENTISTRY TEACHER Work Phone: [facility] 04-21-2024 10:21-0400 Diastolic blood pressure 70 mm[Hg] Holden Rosado ARC TRIMMER-DENTISTRY TEACHER Work Phone: [facility] 04-21-2024 10:21-0400 Heart rate 60 /min Holden Rosado ARC TRIMMER-DENTISTRY TEACHER Work Phone: [facility] 04-21-2024 10:21-0400 Systolic blood pressure 132 mm[Hg] Holden Rosado AR[employer] TRIMMER-DENTISTRY TEACHER Work Phone: [facility] 03-12-2024 09:27-0400 Diastolic blood pressure 66 mm[Hg] [address] 03-12-2024 09:27-0400 Heart rate 62 /min [address] 03-12-2024 09:27-0400 Systolic blood pressure 114 mm[Hg] [address] 03-05-2024 11:46-0400 Body height 165.1 cm Holden Rosado ARC TRIMMER-DENTISTRY TEACHER Work Phone: [facility] 03-05-2024 11:46-0400 Body mass index (BMI) [Ratio] 32.62 kg/m2 Holden Rosado ARC TRIMMER-DENTISTRY TEACHER Work Phone: [facility] 03-05-2024 11:46-0400 Body weight 88.91 kg Holden Rosado ARC TRIMMER-DENTISTRY TEACHER Work Phone: [facility] 03-05-2024 11:46-0400 Diastolic blood pressure 68 mm[Hg] Holden Rosado ARC TRIMMER-DENTISTRY TEACHER Work Phone: [facility] 03-05-2024 11:46-0400 Heart rate 62 /min Holden Rosado ARC TRIMMER-DENTISTRY TEACHER Work Phone: [facility] 03-05-2024 11:46-0400 Systolic blood pressure 120 mm[Hg] Holden Rosado ARC TRIMMER-DENTISTRY TEACHER Work Phone: [facility] 02-27-2024 09:53-0400 Body height 165.1 cm DO Nathan Ball Work Phone: [facility] 02-27-2024 09:53-0400 Body mass index (BMI) [Ratio] 31.9 kg/m2 DO Nathan Ball Work Phone: [facility] 02-27-2024 09:53-0400 Body weight 87.08 kg DO Nathan Ball Work Phone: [facility] 02-27-2024 09:53-0400 Diastolic blood pressure 72 mm[Hg] DO Nathan Ball Work Phone: [facility] 02-27-2024 09:53-0400 Heart rate 62 /min DO Nathan Ball Work Phone: [facility] 02-27-2024 09:53-0400 SaO2% (BldA) [Mass fraction] 97 % DO Nathan Ball Work Phone: [facility] 02-27-2024 09:53-0400 Systolic blood pressure 132 mm[Hg] DO Ntahan Ball Work Phone: [facility] 02-13-2024 10:30-0400 Body height 165.1 cm [facility] 02-13-2024 10:30-0400 Body mass index (BMI) [Ratio] 32.8 kg/m2 [facility] 02-13-2024 10:30-0400 Body weight 89.35 kg [facility] 02-13-2024 10:30-0400 Diastolic blood pressure 60 mm[Hg] [facility] 02-13-2024 10:30-0400 Heart rate 56 /min [facility] 02-13-2024 10:30-0400 SaO2% (BldA) [Mass fraction] 98 % [facility] 02-13-2024 10:30-0400 Systolic blood pressure 128 mm[Hg] [facility] 02-01-2024 11:01-0400 Body height 165.1 cm [facility] 02-01-2024 11:01-0400 Body mass index (BMI) [Ratio] 27.3 kg/m2 [facility] 02-01-2024 11:01-0400 Body weight 74.44 kg [facility] 02-01-2024 11:01-0400 Diastolic blood pressure 72 mm[Hg] [facility] 02-01-2024 11:01-0400 Heart rate 49 /min [facility] 02-01-2024 11:01-0400 Respiratory rate 12 /min [facility] 02-01-2024 11:01-0400 Systolic blood pressure 131 mm[Hg] [facility] 11-02-2023 11:00-0500 Body height 165.1 cm Nathan Ball Other [facility] [employer] Other 11-02-2023 11:00-0500 Body mass index (BMI) [Ratio] 31.78 kg/m2 Nathan Ball Other [facility] [employer] Other 11-02-2023 11:00-0500 Body weight 86.64 kg Nathan Ball Other [facility] [employer] Other 11-02-2023 11:00-0500 Diastolic blood pressure 80 mm[Hg] Nathan Ball Other [facility] [employer] Other 11-02-2023 11:00-0500 Respiratory rate 16 /min Nathan Ball Other [facility] [employer] Other 11-02-2023 11:00-0500 Systolic blood pressure 130 mm[Hg] Nathan Ball Other [facility] [employer] Other 10-02-2023 09:45-0500 Body height 165.1 cm Nathan Ball Other [facility] [employer] Other 10-02-2023 09:45-0500 Body mass index (BMI) [Ratio] 31.61 kg/m2 Nathan Ball Other [facility] [employer] Other 10-02-2023 09:45-0500 Body weight 86.18 kg Nathan Ball Other [employer] Other 10-02-2023 09:45-0500 Diastolic blood pressure 74 mm[Hg] Nathan Ball Other [employer] Other 10-02-2023 09:45-0500 Respiratory rate 12 /min Nathan Ball Other [employer] Other 10-02-2023 09:45-0500 Systolic blood pressure 144 mm[Hg] Nathan Ball Other [employer] Other 06-08-2023 11:15-0400 Body height 165.1 cm Nathan Ball Other [employer] Other 06-08-2023 11:15-0400 Body mass index (BMI) [Ratio] 32.95 kg/m2 Nathan Ball Other [employer] Other 06-08-2023 11:15-0400 Body weight 89.81 kg Nathan Ball Other [employer] Other 06-08-2023 11:15-0400 Diastolic blood pressure 62 mm[Hg] Nathan Ball Other [employer] Other 06-08-2023 11:15-0400 Respiratory rate 12 /min Nathan Ball Other [employer] Other 06-08-2023 11:15-0400 Systolic blood pressure 138 mm[Hg] Nathan Ball Other [employer] Other 06-04-2023 13:51-0400 Body temperature 97.7 [degF] Luis Mckenzie MD Work Phone: [facility] 06-04-2023 13:51-0400 Body weight 91.99 kg Luis Mckenzie MD Work Phone: [facility] 06-04-2023 13:51-0400 Diastolic blood pressure 58 mm[Hg] Luis Mckenzie MD Work Phone: [facility] 06-04-2023 13:51-0400 Heart rate 56 /min Luis Mckenzie MD Work Phone: [facility] 06-04-2023 13:51-0400 Respiratory rate 18 /min Luis Mckenzie MD Work Phone: [facility] 06-04-2023 13:51-0400 SaO2% (BldA) [Mass fraction] 98 % Luis Mckenzie MD Work Phone: [facility] 06-04-2023 13:51-0400 Systolic blood pressure 155 mm[Hg] Luis Mckenzie MD Work Phone: [facility] 05-25-2023 11:15-0400 Body height 165.1 cm Nathan Ball Other [employer] Other 05-25-2023 11:15-0400 Body mass index (BMI) [Ratio] 32.86 kg/m2 Nathan Ball Other [employer] Other 05-25-2023 11:15-0400 Body weight 89.59 kg Nathan Ball Other [employer] Other 05-25-2023 11:15-0400 Diastolic blood pressure 68 mm[Hg] Nathan Ball Other [employer] Other 05-25-2023 11:15-0400 Respiratory rate 16 /min Nathan Ball Other [employer] Other 05-25-2023 11:15-0400 Systolic blood pressure 142 mm[Hg] Nathan Ball Other [employer] Other 05-18-2023 15:30-0400 Body temperature 97.7 [degF] DO Nathan Ball Work Phone: [facility] 05-18-2023 15:30-0400 Diastolic blood pressure 71 mm[Hg] DO Nathan Ball Work Phone: [facility] 05-18-2023 15:30-0400 Heart rate 62 /min DO Nathan Ball Work Phone: [facility] 05-18-2023 15:30-0400 Respiratory rate 16 /min DO Nathan Ball Work Phone: [facility] 05-18-2023 15:30-0400 SaO2% (BldA) [Mass fraction] 95 % DO Nathan Ball Work Phone: [facility] 05-18-2023 15:30-0400 Systolic blood pressure 145 mm[Hg] DO Nathan Ball Work Phone: [facility] 05-18-2023 05:39-0400 Body weight 88.1 kg DO Nathan Ball Work Phone: [facility] 05-17-2023 20:00-0400 Inhaled oxygen flow rate 1.5 L/min DO Nathan Ball Work Phone: [facility] 05-17-2023 15:54-0400 Body height 172.72 cm DO Nathan Ball Work Phone: [facility] 05-16-2023 11:30-0400 Body height 165.1 cm Nathan Ball Other [employer] [facility] [employer] Other 05-16-2023 11:30-0400 Body mass index (BMI) [Ratio] 33.28 kg/m2 Nathan Ball Other [employer] Other 05-16-2023 11:30-0400 Body weight 90.72 kg Nathan Ball Other [employer] Other 05-16-2023 11:30-0400 Diastolic blood pressure 69 mm[Hg] Nathan Ball Other [employer] Other 05-16-2023 11:30-0400 Respiratory rate 16 /min Nathan Ball Other [employer] Other 05-16-2023 11:30-0400 Systolic blood pressure 192 mm[Hg] Nathan Ball Other [employer] Other 05-09-2023 11:15-0400 Body height 165.1 cm Nathan Ball Other [employer] Other 05-09-2023 11:15-0400 Body mass index (BMI) [Ratio] 32.75 kg/m2 Nathan Ball Other [employer] Other 05-09-2023 11:15-0400 Body weight 89.27 kg Nathan Ball Other [employer] Other 05-09-2023 11:15-0400 Diastolic blood pressure 62 mm[Hg] Nathan Ball Other [employer] Other 05-09-2023 11:15-0400 Respiratory rate 16 /min Nathan Ball Other [employer] Other 05-09-2023 11:15-0400 SaO2% (BldA) [Mass fraction] 98 % Nathan Ball Other [employer] Other 05-09-2023 11:15-0400 Systolic blood pressure 189 mm[Hg] Nathan Ball Other [employer] Other 04-26-2023 11:30-0400 Body height 165.1 cm Nathan Ball Other [employer] Other 04-26-2023 11:30-0400 Body mass index (BMI) [Ratio] 32.53 kg/m2 Nathan Ball Other [employer] Other 04-26-2023 11:30-0400 Body weight 88.68 kg Nathan Ball Other [employer] Other 04-26-2023 11:30-0400 Diastolic blood pressure 80 mm[Hg] Nathan Ball Other [employer] Other 04-26-2023 11:30-0400 Respiratory rate 16 /min Nathan Ball Other [employer] Other 04-26-2023 11:30-0400 Systolic blood pressure 136 mm[Hg] Nathan Ball Other [employer] Other 04-18-2023 09:45-0400 Body height 165.1 cm Nathan Ball Other [employer] Other 04-18-2023 09:45-0400 Body mass index (BMI) [Ratio] 33.28 kg/m2 Nathan Ball Other [employer] Other 04-18-2023 09:45-0400 Body weight 90.72 kg Nathan Ball Other [employer] Other 04-18-2023 09:45-0400 Diastolic blood pressure 76 mm[Hg] Nathan Ball Other [employer] Other 04-18-2023 09:45-0400 Respiratory rate 20 /min Nathan Ball Other [employer] Other 04-18-2023 09:45-0400 SaO2% (BldA) [Mass fraction] 98 % Nathan Ball Other [employer] Other 04-18-2023 09:45-0400 Systolic blood pressure 132 mm[Hg] Nathan Ball Other [place] [employer] Other 03-15-2023 10:45-0400 Body height 165.1 cm Nathan Ball Other [employer] [place] [employer] Other 03-15-2023 10:45-0400 Body mass index (BMI) [Ratio] 31.95 kg/m2 Nathan Ball Other [facility] [employer] Other 03-15-2023 10:45-0400 Body weight 87.09 kg Nathan Ball Other [facility] [employer] Other 03-15-2023 10:45-0400 Diastolic blood pressure 77 mm[Hg] Nathan Ball Other [facility] [employer] Other 03-15-2023 10:45-0400 Respiratory rate 16 /min Nathan Ball Other [facility] [employer] Other 03-15-2023 10:45-0400 Systolic blood pressure 151 mm[Hg] Nathan Ball Other [facility] [employer] Other 03-09-2023 17:00-0400 Body temperature 97.9 [degF] DO Nathan Ball Work Phone: [facility] 03-09-2023 17:00-0400 Diastolic blood pressure 72 mm[Hg] DO Nathan Ball Work Phone: [facility] 03-09-2023 17:00-0400 Heart rate 54 /min DO Nathan Ball Work Phone: [facility] 03-09-2023 17:00-0400 Respiratory rate 16 /min DO Nathan Ball Work Phone: [facility] 03-09-2023 17:00-0400 SaO2% (BldA) [Mass fraction] 96 % DO Nathan Ball Work Phone: [facility] 03-09-2023 17:00-0400 Systolic blood pressure 140 mm[Hg] DO Nathan Ball Work Phone: [facility] 03-09-2023 08:11-0400 Body height 165.1 cm DO Nathan Ball Work Phone: [facility] 03-09-2023 08:11-0400 Body weight 90 kg DO Nathan Ball Work Phone: [facility] 03-07-2023 10:14-0400 Diastolic blood pressure 70 mm[Hg] Nathan E Ball Work Phone: [facility] [employer] DO Work Phone: 03-07-2023 10:14-0400 Systolic blood pressure 138 mm[Hg] Nathan E Ball Work Phone: [facility] [employer] DO Work Phone: 03-07-2023 10:04-0400 Body height 165.1 cm Nathan E Ball Work Phone: [facility] [employer] DO Work Phone: 03-07-2023 10:04-0400 Body mass index (BMI) [Ratio] 33.95 kg/m2 Nathan E Ball Work Phone: [facility] [employer] DO Work Phone: 03-07-2023 10:04-0400 Body surface area Derived from formula 1.99 m2 Nathan E Ball Work Phone: [facility] [employer] [address] DO Work Phone: 03-07-2023 10:04-0400 Body weight 92.53 kg Nathan E Ball Work Phone: [facility] [employer] [address] DO Work Phone: 03-07-2023 10:04-0400 Diastolic blood pressure 72 mm[Hg] Nathan E Ball Work Phone: [facility] [employer] [address] DO Work Phone: 03-07-2023 10:04-0400 Heart rate 45 /min Nathan E Ball Work Phone: [facility] [employer] [address] DO Work Phone: 03-07-2023 10:04-0400 Systolic blood pressure 144 mm[Hg] Nathan E Ball Work Phone: [facility] [employer] [address] DO Work Phone: 02-14-2023 11:15-0400 Body height 165.1 cm Nathan Ball Other [place] [place] [employer] Other 02-14-2023 11:15-0400 Body mass index (BMI) [Ratio] 32.61 kg/m2 Nathan Ball Other [employer] Other 02-14-2023 11:15-0400 Body weight 88.91 kg Nathan Ball Other [employer] Other 02-14-2023 11:15-0400 Diastolic blood pressure 72 mm[Hg] Nathan Ball Other [employer] Other 02-14-2023 11:15-0400 Respiratory rate 12 /min Nathan Ball Other [employer] Other 02-14-2023 11:15-0400 Systolic blood pressure 204 mm[Hg] Nathan Ball Other [employer] Other 02-02-2023 12:15-0400 Body height 165.1 cm Nathan Ball Other [employer] Other 02-02-2023 12:15-0400 Body mass index (BMI) [Ratio] 32.78 kg/m2 Nathan Ball Other [employer] Other 02-02-2023 12:15-0400 Body weight 89.36 kg Nathan Ball Other [employer] Other 02-02-2023 12:15-0400 Diastolic blood pressure 70 mm[Hg] Nathan Ball Other [employer] Other 02-02-2023 12:15-0400 Respiratory rate 12 /min Nathan Ball Other [employer] Other 02-02-2023 12:15-0400 Systolic blood pressure 201 mm[Hg] Nathan Ball Other [employer] Other 12-14-2022 10:00-0500 Body height 165.1 cm Nathan Ball Other [employer] Other 12-14-2022 10:00-0500 Body mass index (BMI) [Ratio] 32.53 kg/m2 Nathan Ball Other [employer] Other 12-14-2022 10:00-0500 Body weight 88.68 kg Nathan Ball Other [employer] Other 12-14-2022 10:00-0500 Diastolic blood pressure 70 mm[Hg] Nathan Ball Other [employer] Other 12-14-2022 10:00-0500 Respiratory rate 12 /min Nathan Ball Other [employer] Other 12-14-2022 10:00-0500 Systolic blood pressure 140 mm[Hg] Nathan Ball Other [employer] Other 12-04-2022 13:25-0500 Body height 166.4 cm Luis Mckenzie MD Work Phone: [facility] 12-04-2022 13:25-0500 Body temperature 97.11 [degF] Luis Mckenzie MD Work Phone: [facility] 12-04-2022 13:25-0500 Body weight 90.36 kg Luis Mckenzie MD Work Phone: [facility] 12-04-2022 13:25-0500 Diastolic blood pressure 54 mm[Hg] Luis Mckenzie MD Work Phone: [facility] 12-04-2022 13:25-0500 Heart rate 63 /min Luis Mckenzie MD Work Phone: [facility] 12-04-2022 13:25-0500 Respiratory rate 16 /min Luis Mckenzie MD Work Phone: [facility] 12-04-2022 13:25-0500 SaO2% (BldA) [Mass fraction] 96 % Luis Mckenzie MD Work Phone: [facility] 12-04-2022 13:25-0500 Systolic blood pressure 167 mm[Hg] Luis Mckenzie MD Work Phone: [facility] 11-14-2022 15:00-0500 Body height 165.1 cm Nathan Ball Other [employer] Other 11-14-2022 15:00-0500 Body mass index (BMI) [Ratio] 32.53 kg/m2 Nathan Ball Other [employer] Other 11-14-2022 15:00-0500 Body weight 88.68 kg Nathan Ball Other [employer] Other 11-14-2022 15:00-0500 Diastolic blood pressure 72 mm[Hg] Nathan Ball Other [employer] Other 11-14-2022 15:00-0500 Respiratory rate 12 /min Nathan Ball Other [employer] Other 11-14-2022 15:00-0500 Systolic blood pressure 130 mm[Hg] Nathan Ball Other [facility] [employer] Other 05-29-2022 10:06-0400 Body height 166.4 cm Luis Mckenzie MD Work Phone: [facility] 05-29-2022 10:06-0400 Body temperature 97.59 [degF] Luis Mckenzie MD Work Phone: [facility] 05-29-2022 10:06-0400 Body weight 89.72 kg Luis Mckenzie MD Work Phone: [facility] 05-29-2022 10:06-0400 Diastolic blood pressure 50 mm[Hg] Luis Mckenzie MD Work Phone: [facility] 05-29-2022 10:06-0400 Heart rate 50 /min Luis Mckenzie MD Work Phone: [facility] 05-29-2022 10:06-0400 Respiratory rate 16 /min Luis Mckenzie MD Work Phone: [facility] 05-29-2022 10:06-0400 SaO2% (BldA) [Mass fraction] 96 % Luis Mckenzie MD Work Phone: [facility] 05-29-2022 10:06-0400 Systolic blood pressure 155 mm[Hg] Luis Mckenzie MD Work Phone: [facility] Encounters Encounter Date Encounter Type Care Provider Facility Start: 08-04-2025 End: 08-04-2025 ambulatory Nathan Ball DO Work Phone: [facility] Work Phone: Start: 08-04-2025 End: 08-04-2025 Patient encounter procedure Kaia Krishna APRN -[facility] Work Phone: Start: 07-21-2025 End: 07-21-2025 ambulatory Nathan Hathaway DO Work Phone: [facility] Work Phone: Start: 07-21-2025 End: 07-21-2025 Patient encounter procedure Nathan Fransico [facility]ILL[facility] Work Phone: Start: 07-15-2025 Non-patient / Non-visit Valentin peña MD -[place] [employer] Work Phone: Start: 07-15-2025 End: 07-15-2025 ambulatory NATHAN HATHAWAY Facility:[facility] Start: 07-10-2025 End: 07-10-2025 Telephone encounter Valentin Leonard MD Work Phone: [facility] Comment on above: Orders; Patient Up[facility] te Start: 07-08-2025 End: 07-10-2025 Telephone encounter Paolo Casillas APRN.DENTISTRY TEACHER Work Phone: [facility] Comment on above: Results Start: 07-08-2025 End: 07-08-2025 Patient encounter procedure Paolo Casillas APRN.DENTISTRY TEACHER Work Phone: Hematology/Oncology Start: 07-08-2025 Non-patient / Non-visit Fanny Bedoya APRN TELEPHONE ORDER CLERK ROOM SERVICE-C -[place] [facility] Work Phone: Start: 07-08-2025 End: 07-08-2025 ambulatory Paolo Casillas APRN.DENTISTRY TEACHER Work Phone: Hematology/Oncology Comment on above: Abnormal SPEP (Prima ry Dx); Primary hypertension; Hyperlipidemia, unspecified hyperlipidemia type; Heart disease; Edema, unspecified type; Monoclonal gammopathy of undetermined significance; Anemia in other chronic diseases classified elsewhere Start: 07-06-2025 End: 07-06-2025 Telephone encounter Paolo Casillas APRN.DENTISTRY TEACHER Work Phone: Hematology/Oncology Comment on above: Lab Orders (nt) Start: 06-24-2025 Non-patient / Non-visit Nathan michelle DO -[facility] Work Phone: Start: 06-23-2025 Non-patient / Non-visit Nathan michelle DO -[facility] Work Phone: Start: 06-19-2025 End: 06-19-2025 ambulatory Nathan Ball DO Work Phone: [facility] Work Phone: Start: 06-19-2025 End: 06-19-2025 Patient encounter procedure Nathan Ball DO -[facility] Work Phone: Start: 05-19-2025 End: 05-19-2025 ambulatory Nathan Ball DO Work Phone: [facility] Work Phone: Start: 05-19-2025 End: 05-19-2025 Patient encounter procedure Nathan Ball DO -[facility] Work Phone: Start: 03-19-2025 End: 03-19-2025 ambulatory Nathan Ball DO Work Phone: [facility] Work Phone: Start: 03-19-2025 End: 03-19-2025 Patient encounter procedure Nathan Ball DO Work Phone: [facility] Work Phone: Start: 03-18-2025 Non-patient / Non-visit Cadence in Fransico DO Work Phone: [facility] Work Phone: Start: 03-17-2025 End: 03-17-2025 Subsequent hospital visit by physician Laura Blair Echo/Vasc Room [facility] Comment on above: Essential hypertensi on; Palpitations Start: 03-17-2025 End: 03-17-2025 ambulatory HOLDEN Lambert [facility] Start: 03-13-2025 End: 03-13-2025 Patient encounter procedure Nathan Ball DO Work Phone: [facility] Work [...] 02-12-2025 End: 02-12-2025 Emergency department patient visit [place] [place] Facility:[facility] Start: 02-10-2025 End: 02-10-2025 Clinisync Result Encounter Reyna Esparza MD Work Phone: [facility] External Department Unsolicited Start: 02-10-2025 End: 02-10-2025 Clinisync Result Encounter Reyna Esparza MD Work Phone: [facility] External Department Unsolicited Start: 01-26-2025 End: 01-26-[address] [facility] Start: 01-23-2025 Non-patient / Non-visit Benjam in Ball DO Work Phone: [facility] Work Phone: Start: 01-22-2025 End: 01-22-2025 ambulatory Nathan Hathaway DO Work Phone: [facility] Work Phone: Start: 01-22-2025 End: 01-22-2025 Patient encounter procedure Nathan Ball DO Work Phone[facility] Work Phone: Start: 01-12-2025 End: 01-12-2025 Office outpatient visit 25 minutes Holden Rosado ARC TRIMMER-DENTISTRY TEACHER Work Phone: [facility] Comment on above: BMI 33.0-33.9,adult (Primary Dx); Essential hypertension; Palpitations; ASHD (arteriosclerotic heart disease); Mixed hyperlipidemia Start: 01-12-2025 End: 01-12-2025 ambulatory HOLDEN Lambert [facility] Start: 12-29-2024 End: 12-29-2024 ambulatory Nathan Hathaway DO Work Phone: [facility] Work Phone: Start: 12-29-2024 End: 12-29-2024 Patient encounter procedure Nathan Fransico DO Work Phone: [facility] Work Phone: Start: 12-18-2024 Non-patient / Non-visit Benjam in Ball DO Work Phone: [facility] Work Phone: Start: 12-16-2024 End: 12-16-2024 Patient encounter procedure Nathan Hathaway DO Work Phone: [facility] Work Phone: Start: 11-25-2024 End: 11-25-2024 [...] 11-19-2024 ambulatory Nathan Hathaway DO Work Phone: [facility] Work Phone: Start: 11-19-2024 Non-patient / Non-visit Benjam in Ball DO Work Phone: [facility] Work Phone: Start: 11-17-2024 End: 11-17-2024 Admission to same day surgery center Nathan Hathaway DO Work Phone: [facility] [place] Work Phone: Start: 11-17-2024 End: 11-17-2024 ambulatory Nathan Hathaway DO Work Phone: [facility] Work Phone: Start: 10-09-2024 End: 10-09-2024 Refill Mildred Braxton COT Work Phone: [facility] Start: 10-08-2024 End: 10-08-2024 Office outpatient visit 25 minutes Edinson Pakdon DO Work Phone: [facility] Comment on above: ASHD (arteriosclerot ic heart disease); Essential hypertension; BMI 33.0-33.9,adult; Former smoker; S/P PTCA (percutaneous transluminal coronary angioplasty); Mixed hyperlipidemia; Coronary arteriosclerosis after percutaneous transluminal coronary angioplasty (PTCA) Start: 10-08-2024 End: 10-08-2024 ambulatory [facility] Start: 09-12-2024 Non-patient / Non-visit Benjam in Fransico DO Work Phone: [facility] Work Phone: Start: 09-11-2024 End: 09-11-[address] [facility] Work Phone: Start: 09-11-2024 End: 09-11-2024 Patient encounter procedure [facility] Work Phone: Start: 09-04-2024 Non-patient / Non-visit [facility] Work Phone: Start: 07-16-2024 End: 07-16-[address] [facility] Work Phone: Start: 07-16-2024 End: 07-16-2024 Patient encounter procedure [facility] Work Phone: Start: 06-03-2024 End: 06-03-2024 ambulatory DO Nathan Hathaway Work Phone: [facility] Work Phone: Start: 06-03-2024 End: 06-03-2024 Patient encounter procedure DO Nathan Hathaway Work Phone: [facility] Work Phone: Start: 05-20-2024 Non-patient / Non-visit DO Natalio Hathaway Work Phone: [facility] Work Phone: Start: 04-30-2024 Non-patient / Non-visit DO Natalio Hathaway Work Phone: [facility] Work Phone: Start: 04-28-2024 End: 04-28-2024 ambulatory [facility] Not Available Start: 04-21-2024 End: 04-21-2024 Office outpatient visit 15 minutes Holden Lambert Hammon ARC TRIMMER-DENTISTRY TEACHER Work Phone: [facility] Comment on above: Essential hypertensi on (Primary Dx); ASHD (arteriosclerotic heart disease); Mixed hyperlipidemia; BMI 32.0-32.9,adult Start: 04-21-2024 End: 04-21-[address] [facility] Start: 03-12-2024 End: 03-12-2024 Subsequent hospital visit by physician Laura Shabazz [address] [facility] Comment on above: ASHD (arteriosclerot ic heart disease) Start: 03-05-2024 End: 03-05-2024 Patient encounter procedure DO Nathan Hathaway Work Phone: [facility] [place] Work Phone: Start: 03-05-2024 End: 03-05-2024 ambulatory DO Nathan Hathaway Work Phone: [facility] Work Phone: Start: 03-05-2024 End: 03-05-2024 Office outpatient visit 25 minutes Holden Rosado ARC TRIMMER-DENTISTRY TEACHER Work Phone: [facility] Comment on above: ASHD (arteriosclerot ic heart disease) (Primary Dx); Essential hypertension; Mixed hyperlipidemia; BMI 32.0-32.9,adult Start: 02-27-2024 End: 02-27-2024 Patient encounter procedure DO Nathan Hathaway Work Phone: [facility] Work Phone: Start: 02-21-2024 Non-patient / Non-visit DO Natalio Hathaway Work Phone: [facility] Work Phone: Start: 02-20-2024 Non-patient / Non-visit DO Natalio Hathaway Work Phone: [facility] Work Phone: Start: 02-19-2024 Non-patient / Non-visit DO Natalio Hathaway Work Phone: [facility] Work Phone: Start: 02-18-2024 Non-patient / Non-visit DO Natalio Hathaway Work Phone: [facility] Work Phone: Start: 02-13-2024 End: 02-13-2024 ambulatory [facility] Work Phone: Start: 02-13-2024 End: 02-13-2024 [facility] Work Phone: Start: 02-02-2024 Non-patient / Non-visit [facility] Work Phone: Start: 02-01-2024 End: 02-01-2024 ambulatory [facility] Work Phone: Start: 02-01-2024 End: 02-01-2024 Patient encounter [facility] Work Phone: Start: 01-04-2024 End: 01-04-2024 ambulatory Nathan Ball Other [employer] Other Start: 01-04-2024 Telephone encounter Nathan Hathaway [facility] Start: 12-18-2023 Non-patient / Non-visit [facility] Work Phone: Start: 11-27-2023 End: 11-27-2023 ambulatory Nathan Ball Other [employer] Other Start: 11-27-2023 Telephone encounter Nathan Ball [facility] Start: 11-02-2023 End: 11-02-2023 ambulatory Nathan Ball Other [employer] Other Start: 11-02-2023 Office outpatient vi sit 25 minutes Nathan Ball [facility] Start: 10-02-2023 End: 10-02-2023 ambulatory Nathan Ball Other [employer] Other Start: 10-02-2023 Office outpatient vi sit 25 minutes Nathan Ball [facility] Start: 09-26-2023 End: 09-26-2023 ambulatory Nathan Ball Other [employer] Other Start: 09-26-2023 Telephone encounter Nathan Ball [facility] Start: 09-21-2023 End: 09-21-2023 ambulatory Nathan Ball Other [employer] Other Start: 09-21-2023 Telephone encounter Nathan Ball [facility] Start: 2023 End: 2023 ambulatory Nathan Ball Other [employer] Other Start: 2023 Telephone encounter Nathan Ball [facility] Start: 09-13-2023 End: 09-13-2023 ambulatory Nathan Ball Other [employer] Other Start: 09-13-2023 Telephone encounter Nathan Ball [facility] Start: 09-11-2023 End: 09-11-2023 ambulatory Nathan Ball Other [employer] Other Start: 09-11-2023 Office outpatient vi sit 15 minutes Nathan Ball [facility] Start: 08-16-2023 End: 08-16-2023 ambulatory Nathan Ball Other [employer] Other Start: 08-16-2023 Telephone encounter Nathan Ball [facility] Start: 07-31-2023 End: 07-31-2023 ambulatory Nathan Ball Other [employer] Other Start: 07-31-2023 Telephone encounter Nathan Ball [facility] Start: 07-30-2023 End: 07-30-2023 ambulatory Nathan Ball Other [employer] Other Start: 07-30-2023 Telephone encounter Nathan Ball [facility] Start: 07-19-2023 End: 07-19-2023 ambulatory Nathan Ball Other [employer] Other Start: 07-19-2023 Telephone encounter Nathan Ball [facility] Start: 07-18-2023 End: 07-18-2023 ambulatory Nathan Ball Other [employer] Other Start: 07-18-2023 Telephone encounter Nathan Ball [facility] Start: 07-17-2023 End: 07-17-2023 ambulatory Nathan Ball Other [employer] Other Start: 07-17-2023 Nursing evaluation o f patient and report Nathan Hathaway [facility] Start: 06-28-2023 End: 06-28-2023 ambulatory Nathan Ball Other [employer] Other Start: 06-28-2023 Telephone encounter Nathan Hathaway [facility] Start: 06-25-2023 End: 06-25-2023 ambulatory Nathan Hathaway Other [employer] Other Start: 06-25-2023 Telephone encounter Nathan Hathaway [facility] Start: 06-21-2023 End: 06-21-2023 ambulatory Nathan Hathaway Other [employer] Other Start: 06-21-2023 Telephone encounter Nathan Hathaway [facility] Start: 06-19-2023 End: 06-19-2023 ambulatory Nathan Hathaway Other [employer] Other Start: 06-19-2023 Telephone encounter Nathan Hahtaway [facility] Start: 06-18-2023 End: 06-18-2023 ambulatory Nathan Hathaway Other [employer] Other Start: 06-18-2023 Telephone encounter Nathan Hathaway [facility] Start: 06-15-2023 End: 06-15-2023 ambulatory Nathan Hathaway Other [employer] Other Start: 06-15-2023 Telephone encounter Nathan Hathaway [facility] Start: 06-08-2023 End: 06-08-2023 ambulatory Nathan Hathaway Other [employer] Other Start: 06-08-2023 Office outpatient vi sit 15 minutes Nathan Hathaway [facility] Start: 06-06-2023 Telephone encounter Cristy Rico Hematology/Oncology Comment on above: Results Start: 06-04-2023 End: 06-04-2023 ambulatory Luis Mckenzie MD Work Phone: [employer] Other Comment on above: Abnormal SPEP (Prima ry Dx); Anemia, unspecified type; Neuropathy - (NOS); Heart disease Start: 06-04-2023 End: 06-04-2023 Patient encounter procedure Luis Mckenzie MD Work Phone: [facility] Start: 06-04-2023 Telephone encounter Nathan Hathaway [facility] Start: 06-01-2023 End: 06-01-2023 ambulatory Nathan Hathaway Other [employer] Other Start: 06-01-2023 Telephone encounter Nathan Hathaway [facility] Start: 05-25-2023 End: 05-25-2023 ambulatory Nathan Hathaway Other [employer] Other Start: 05-25-2023 Transitional care julito stark srvc 14 day discharge Nathan Hathaway [facility] Start: 05-17-2023 End: 05-18-2023 Evaluation and management of inpatient DO Nathan Hathaway Work Phone: [facility]3 [facility]ious Med Surg Work Phone: Start: 05-17-2023 End: 05-18-2023 observation encounter DO Nathan Hathaway Work Phone: [facility] Work Phone: Start: 05-16-2023 End: 05-16-2023 ambulatory Nathan Hathaway Other [employer] Other Start: 05-16-2023 Office outpatient vi sit 25 minutes Nathan Hathaway [facility] Start: 05-09-2023 End: 05-09-2023 ambulatory Nathan Hathaway Other [employer] Other Start: 05-09-2023 Office outpatient vi sit 25 minutes Nathan Hathaway [facility] Start: 05-09-2023 Telephone encounter Nathan Hathaway Work Phone: [facility] Heart-[address] DO Work Phone: Start: 04-26-2023 End: 04-26-2023 ambulatory Nathan Hathaway Other [employer] Other Start: 04-26-2023 Office outpatient vi sit 25 minutes Nathan Hathaway [facility] Start: 04-26-2023 Telephone encounter Nathan Hathaway [facility] Start: 04-18-2023 End: 04-18-2023 ambulatory Nathan Hathaway Other [employer] Other Start: 04-18-2023 Office outpatient vi sit 25 minutes Nathan Hathaway [facility] Start: 04-18-2023 Telephone encounter Nathan Hathaway [facility] Start: 03-27-2023 End: 03-27-2023 ambulatory Nathan Hathaway Other [employer] Other Start: 03-27-2023 Telephone encounter Nathan Hathaway [facility] Start: 03-15-2023 End: 03-15-2023 ambulatory Nathan Hathaway Other [facility] [employer] Other Start: 03-15-2023 Office outpatient vi sit 25 minutes Nathan Hathaway [facility] Start: 03-09-2023 End: 03-09-[address] Edinson Perry [facility] [employer] Other Start: 03-09-2023 Telephone encounter Nathan Hathaway [facility] Start: 03-09-2023 SURGNON, Provider: Edinson Perry, Status: Pen, Time: 10:00 AM Nathan Hathaway Work Phone: [facility] [address] DO Work Phone: Start: 03-09-2023 End: 03-09-2023 Admission to same day surgery center DO Nathan Ball Work Phone: [facility]-Tap Out Operator Work Phone: Start: 03-08-2023 End: 03-08-2023 ambulatory DO Nathan Ball Work Phone: [facility] Work Phone: Start: 03-08-2023 End: 03-08-2023 Patient encounter procedure DO Nathan Ball Work Phone: [facility]-Ctr-[facility]chcwjbr Testing Work Phone: Start: 03-07-2023 Office consultation new/estab patient 80 min Nathan Hathaway Work Phone: [facility] [address] DO Work Phone: Start: 03-07-[address] Edinson albrecht [place] Facility: Start: 03-05-2023 End: 03-05-2023 ambulatory Nathan Hathaway Other [employer] Other Start: 03-05-2023 Telephone encounter Nathan Hathaway [facility] Start: 03-01-2023 End: 03-02-[address] NATHAN HATHAWAY Facility:[facility] Start: 02-27-2023 End: 02-27-2023 ambulatory Nathan Hathaway Other [employer] Other Start: 02-27-2023 Telephone encounter Nathan Hathaway [facility] Start: 02-20-2023 End: 02-20-2023 ambulatory Nathan Hathaway Other [employer] Other Start: 02-20-2023 Telephone encounter Nathan Hathaway [facility] Start: 02-14-2023 End: 02-14-2023 ambulatory Nathan Fransico Other [employer] Other Start: 02-14-2023 Office outpatient vi sit 25 minutes Nathan Ball [facility] Start: 02-14-2023 Telephone encounter Nathan Fransico [facility] Start: 02-11-2023 End: 02-11-2023 ambulatory Nathan Fransico Other [employer] Other Start: 02-11-2023 Telephone encounter Nathan Hathaway [facility] Start: 02-08-2023 End: 02-09-2023 Evaluation and management of inpatient DR NATHAN HATHAWAY Facility:[facility] Start: 02-02-2023 End: 02-02-2023 ambulatory Nathan Hathaway Other [employer] Other Start: 02-02-2023 Office outpatient vi sit 25 minutes Nathan Hathaway [facility] Start: 01-08-2023 End: 01-09-[address] NATHAN HATHAWAY Facility:[facility] Start: 12-21-2022 End: 12-21-2022 ambulatory Nathan Hathaway Other [employer] Other Start: 12-21-2022 Telephone encounter Nathan Hathaway [facility] Start: 12-20-2022 End: 12-20-2022 ambulatory Nathan Hathaway Other [employer] Other Start: 12-20-2022 Telephone encounter Nathan Hathaway [facility] Start: 12-14-2022 End: 12-14-2022 ambulatory Nathan Hathaway Other [employer] Other Start: 12-14-2022 Patient encounter procedure Nathan Hathaway [facility] Start: 12-04-2022 End: 12-04-2022 ambulatory Luis Mckenzie MD Work Phone: Hematology/Oncology Comment on above: Abnormal SPEP (Prima ry Dx); Neuropathy - (NOS); Lung nodules Start: 12-04-2022 End: 12-04-2022 Patient encounter procedure Luis Mckenzie MD Work Phone: [facility] Start: 11-23-2022 End: 11-23-2022 ambulatory Nathan Hathaway Other [employer] Other Start: 11-23-2022 Telephone encounter Nathan CHURCHILL [facility] Start: 11-16-2022 End: 11-17-[address] NATHAN HATHAWAY Facility:[facility] Start: 11-14-2022 End: 11-14-2022 ambulatory Nathan Hathaway Other [employer] Other Start: 11-14-2022 Office outpatient vi sit 25 minutes Nathan Hathaway [facility] Start: 09-11-2022 End: 09-12-2022 ambulatory [...] 12-13-2021 Adult health examination Lauri Hathaway Other [employer] Other Procedures Date Procedure Procedure Detail Performing Clinician Start: 02-12-2025 Plain chest X-ray Lauri Hathaway DO Work Phone: Start: 02-10-2025 Us soft tissue head & neck real time imge docm Reyna Esparza MD Work Phone: Start: 11-17-2024 Aspiration Nathan B all DO Work Phone: Start: 03-12-2024 Cv strs tst xers&/or rx cont ecg trcg only Holden Rosado ARC TRIMMER-DENTISTRY TEACHER Work Phone: Start: 10-17-2023 History of placement of stent for coronary artery disease S/P coronary artery stent placement Holden Rosado ARC TRIMMER-DENTISTRY TEACHER Work Phone: Start: 05-17-2023 CT angiography of [...] Screening for malign ant neoplasm of breast Ntahan Hathaway Other Total colonoscopy Nathan E Fransico Work Phone: Comment on above: 2012; Plan of Treatment Date Care Activity Detail Author Start: 07-08-2028 Diabetes Screening Diabetes Screening [facility] Start: 03-05-2027 Diabetes Screening Diabetes Screening [facility] Start: 11-05-2026 Diabetes Screening Diabetes Screening [facility] Start: 06-04-2026 DIABETES SCREEN DIABETES SCREEN [facility] Start: 11-27-2025 DIABETES SCREEN DIABETES SCREEN [facility] Start: 10-27-2025 End: 10-27-2025 Patient encounter procedure 10/27/2025 2:10 PM EST Office Visit [facility] [address] [facility] [address] [place] [address] Edinson Perry DO [address] [facility] [address] [place] [address] [facility] Start: 10-07-2025 End: 10-07-2025 ambulatory 10/07/2025 3:00 PM EST Visit (SP) Office Hematology/Oncology [address] [place] [address] Valentin Leonard MD [address] [place] [address] 3 month ELDON with lab Hematology/Oncology Comment on above: 3 month ELDON with lab Start: 10-07-2025 End: 10-07-2025 Patient encounter procedure 10/07/2025 2:45 PM EST Office Visit [facility] [address] [place] [address] 3 month ELDON with lab [facility] Comment on above: 3 month ELDON with lab Start: 08-24-2025 DIABETES SCREEN DIABETES SCREEN [facility] Start: 07-21-2025 Patient referral [facility] Work Phone: Start: 07-08-2025 End: 07-08-2025 ambulatory 07/08/2025 10:00 AM EDT Visit (SP) Office Hematology/Oncology [address] [place] [address] Paolo Casillas APRN.[facility] [address] [place] [address] Dr Hathaway 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 [facility] Hematology/Oncology Comment on above: Dr Hathaway 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 [facility] Start: 07-08-2025 End: 07-08-2025 Patient encounter procedure 07/08/2025 10:00 AM EDT Office Visit [facility] [address] [place] [address] Labs Per January Staff Message [facility] Comment on above: Labs Per January Staff Message Start: 07-06-2025 End: 10-05-2025 CBC W Auto Differential panel - Blood COMPLETE BLOOD COUNT AND DIFFERENTIAL Lab Routine Abnormal SPEP Expected: 07/06/2025, Expires: 10/05/2025 [facility] Work Phone: Comment on above: Expected: 07/06/2025, Expires: Start: 07-06-2025 End: 10-05-2025 Comprehensive metabolic 2000 panel - Serum or Plasma COMPREHENSIVE METABOLIC PANEL Lab Routine Abnormal SPEP Expected: 07/06/2025, Expires: 10/05/2025 [facility] Comment on above: Expected: 07/06/2025, Expires: Start: 07-06-2025 End: 10-05-2025 MONOCLONAL PROTEIN, SERUM (BLOOD) MONOCLONAL PROTEIN, SERUM (BLOOD) Lab Routine Abnormal SPEP Expected: 07/06/2025, Expires: 10/05/2025 [facility] Comment on above: Expected: 07/06/2025, Expires: Start: 07-06-2025 End: 10-05-2025 PROTEIN ELECTROPHORESIS SERUM W/INTERP PROTEIN ELECTROPHORESIS SERUM W/INTERP Lab Routine Abnormal SPEP Expected: 07/06/2025, Expires: 10/05/2025 [facility] Comment on above: Expected: 07/06/2025, Expires: Start: 06-29-2025 Influenza [facility] Start: 05-22-2025 DIABETES SCREEN DIABETES SCREEN [facility] Start: 05-04-2025 COVID-19 Vaccine ( season) COVID-19 Vaccine () [facility] Start: 04-29-2025 End: 04-29-2025 Patient encounter procedure 04/29/2025 9:30 AM EDT Office Visit [facility] [address] [place] [address] Fercho Tse DO [address] [place] [address] [facility] Start: 03-17-2025 End: 03-17-2025 Patient encounter procedure 03/17/2025 10:45 AM EDT Appointment [place] [address] [place] [address] [facility] Start: 02-25-2025 End: 02-25-2025 Patient encounter procedure [facility] Comment on above: Arrived Start: 01-26-2025 End: 01-26-2025 Professional / ancillary services management 01/26/2025 3:00 PM EDT Ancillary Procedure [place] [address] [facility] [address] [place] [address] [facility] Start: 01-12-2025 End: 01-12-2026 Holter monitor study Holter Or Event [employer] Cardiac Services Routine Palpitations Expected: 01/12/2025 (Approximate), Expires: 01/12/2026 [facility] Service Area Work Phone: Comment on above: Expected: 01/12/2025 (Approximate), Expi res: 01/12/2026 Start: 01-12-2025 End: 01-12-2027 US Heart Transthoracic Transthoracic Echo Complete Echocardiography Routine Essential hypertension Palpitations Expected: 01/12/2025 (Approximate), Expires: 01/12/2027 [facility] Work Phone: Comment on above: Expected: 01/12/2025 (Approximate), Expi res: 01/12/2027 Start: 11-25-2024 End: 11-25-2024 Patient encounter procedure 11/25/2024 2:00 PM EST Office Visit [facility] [address] [facility] [address] [place] [address] Reyna Esparza MD 112 [facility] [address] [place] [address] Arrived [facility] Comment on above: Arrived Start: 11-19-2024 Patient referral [facility] Work Phone: Start: 11-17-2024 [facility] Start: 11-17-2024 Aspiration [facility] Start: 10-29-2024 Advance Directive Discussion Advance Directive Discussion [facility] Start: 10-08-2024 End: 10-08-2024 Patient encounter procedure 10/08/2024 10:40 AM EST Office Visit [address] [place] [address] Edinson Perry, [address] [facility] [address], Mike [address] [place] [address] [facility] Start: 06-29-2024 Covid-19 Vaccine ( season) Covid-19 Vaccine () [facility] Start: 06-29-2024 Influenza vaccination [facility] Start: 04-21-2024 End: 04-21-2025 Basic metabolic 2000 panel - Serum or Plasma Basic Metabolic Panel Lab Routine ASHD (arteriosclerotic heart disease) Expected: 04/21/2024 (Approximate), Expires: 04/21/2025 [facility] Service Area Work Phone: Comment on above: Expected: 04/21/2024 (Approximate), Expi res: 04/21/2025 Start: 04-21-2024 End: 04-21-2024 Patient encounter procedure 04/21/2024 10:30 AM EDT Office Visit [address] [place] [address] Holden Rosado, ARC TRIMMER-DENTISTRY TEACHER [address] [facility] [address], [address] [place] [address] [facility] Start: 03-12-2024 End: 03-12-2024 Patient encounter procedure 03/12/2024 10:15 AM EDT Appointment [address] [place] [id number] [facility] Start: 03-12-2024 End: 03-12-2024 Patient encounter procedure [facility] Start: 03-05-2024 End: 03-05-2025 Basic metabolic 2000 panel - Serum or Plasma Basic Metabolic Panel Lab Routine Essential hypertension Expected: 03/05/2024 (Approximate), Expires: 03/05/2025 [facility] Work Phone: Comment on above: Expected: 03/05/2024 (Approximate), Expi res: 03/05/2025 Start: 03-05-2024 End: 03-05-2026 NM Heart Perfusion W stress and W radionuclide IV Nuclear Stress Test Cardiac Nuclear Medicine Routine ASHD (arteriosclerotic heart disease) Expected: 03/05/2024 (Approximate), Expires: 03/05/2026 [facility] Service Area Work Phone: Comment on above: Expected: 03/05/2024 (Approximate), Expi res: 03/05/2026 Start: 02-09-2024 Echocardiography Echocardiogram [facility] Start: 10-29-2023 Advance Directive Discussion Advance Directive Discussion [facility] Start: 09-18-2023 FUV, Provider: Edinson Perry, Status: Pen, Time: 11:20 AM FUV, Provider: Edinson Perry, Status: Pen, Time: 11:20 AM [facility] [address] DO Work Phone: Start: 06-29-2023 COVID-19 Vaccine ( season) COVID-19 Vaccine ( season) [facility] Start: 06-29-2023 Influenza vaccination INFLUENZA (#1) [facility] Start: 05-29-2023 Adult depression screening assessment DEPRESSION SCREENING [facility] Start: 05-29-2023 FUV, Provider: Edinson Perry, Status: Nahid, Time: 10:20 AM FUV, Provider: Edinson Perry, Status: Pen, Time: 10:20 AM [facility] [address] DO Work Phone: Start: 05-18-2023 [facility] Start: 05-17-2023 Hospital admission [facility] Start: 03-09-2023 [facility] Start: 01-13-2023 COVID-19 VACCINE (6 - Pfizer series) COVID-19 VACCINE (6 - Pfizer series) [facility] Start: 11-22-2022 Adult depression screening assessment DEPRESSION SCREENING [facility] Start: 10-29-2022 ADVANCE DIRECTIVE DISCUSSION ADVANCE DIRECTIVE DISCUSSION [facility] Start: 10-29-2022 DEPRESSION ASSESSMENT DEPRESSION ASSESSMENT [facility] Start: 10-13-2022 COVID-19 Vaccine (3 - Pfizer risk series) COVID-19 Vaccine (3 - Pfizer risk series) [facility] Start: 06-29-2022 Influenza vaccination INFLUENZA (#1) [facility] Start: 03-25-2022 COVID-19 VACCINE (5 - Booster for Pfizer series) COVID-19 VACCINE (5 - Booster for Pfizer series) [facility] Start: 10-29-2021 ADVANCE DIRECTIVE DISCUSSION ADVANCE DIRECTIVE DISCUSSION [facility] Start: 10-29-2021 DEPRESSION ASSESSMENT DEPRESSION ASSESSMENT [facility] Start: 09-16-2021 Shingrix Vaccine (3 of 3) Shingrix Vaccine (3 of 3) [facility] Start: 09-16-2021 Zoster Vaccines (2 of 2) Zoster Vaccines (2 of 2) [facility] Start: 07-16-2021 SHINGRIX VACCINE (2 of 2) SHINGRIX VACCINE (2 of 2) [facility] Start: 2017 RSV High Risk: (Elderly (60+) or Population) (1 - 1-dose 75+ series) RSV High Risk: (Elderly (60+) or Population) (1 - 1-dose 75+ series) [facility] Start: 2017 RSV Vaccine (1 - 1-dose 75+ series) RSV Vaccine (1 - 1-dose 75+ series) [facility] Start: 07-17-2014 DTaP/Tdap/Td Vaccines (1 - Tdap) DTaP/Tdap/Td Vaccines (1 - Tdap) [facility] Start: 07-17-2014 Urine microalbumin profile DTaP,Tdap,Td Vaccine (1 - Tdap) [facility] Start: 2007 BONE DENSITY BONE DENSITY [facility] Start: 2007 PNEUMOCOCCAL: 65+ (1 - PCV) PNEUMOCOCCAL: 65+ (1 - PCV) [facility] Start: 2007 Screening for osteoporosis Bone Density Screening [facility] Start: 08-29-2007 Medicare Annual Wellness Visit Medicare Annual Wellness Visit [facility] Start: 2002 RSV patients and/or patients aged 60+ years (1 - 1-dose 60+ series) RSV patients and/or patients aged 60+ years (1 - 1-dose 60+ series) [facility] Start: 1964 DTaP/Tdap/Td Vaccines (1 - Tdap) DTaP/Tdap/Td Vaccines (1 - Tdap) [facility] Start: 1961 Urine microalbumin profile DTAP,TDAP,TD (1 - Tdap) [facility] Start: 1960 Anxiety Screening Anxiety Screening [facility] Start: 1960 Depression Screening Depression Screening [facility] Start: 1960 Diabetes mellitus screening Diabetes Screening [facility] Start: 1942 Creatinine measurement Creatinine Level [facility] Start: 1942 Lipid panel Lipid Panel [facility] Start: 1942 Medicare Annual Wellness Visit Medicare Annual Wellness Visit (AWV) [facility] Start: 1942 Potassium measurement Potassium Level [facility] Start: 1942 Screening for osteoporosis Bone Density Scan [facility] Comprehensive metabo lic 2000 panel - Serum or Plasma [facility] End: 06-28-2023 Ct abdomen & pelvis w/contrast material CT ABD/PEL W IVCON Radiology Routine Disorder of adrenal gland (HCC) 1 Occurrences starting 05/29/2022 until 06/28/2023 [facility] Work Phone: Comment on above: 1 Occurrences starting 05/29/2022 until 06/28/2023 End: 06-28-2023 CT CHEST W IVCON CT CHEST W IVCON Radiology Routine Lung nodules 1 Occurrences starting 05/29/2022 until 06/28/2023 [facility] Work Phone: Comment on above: 1 Occurrences starting 05/29/2022 until 06/28/2023 Patient Education [facility] Work Phone: Patient referral [facility] Work Phone: End: 03-17-2025 US Heart Transthoracic [facility] Service Area Work Phone: Comment on above: Once for 1 Occurrences starting 03/17/20 25 until 03/17/2025 XR Knee - right 4 Views [facility] [place] Immunizations Immunization Date Immunization Notes Care Provider Fa cility 07-16-2024 influenza, high dose seasonal, preservative-free [facility] 07-16-2024 influenza virus vaccine, unspecified formulation Paolo Casillas APRN.CNP Work Phone: [facility] 08-06-2023 influenza virus vaccine, unspecified formulation [facility] 08-06-2023 influenza, high dose seasonal, preservative-free Nathan Hathaway Other [employer] Other 09-15-2022 COVID-19 Pfizer (Pediatric) Nathan Hathaway Other [facility] 09-15-2022 Pfizer COVID-19 Vac Bivalent 30 MCG/0.3ML Intramuscular Suspension Nathan Hathaway Work Phone: [facility] 08-11-2022 influenza virus vaccine, split virus (incl. purified surface antigen) Nathan Hathaway Other [employer] Other 08-11-2022 influenza virus vaccine, unspecified formulation [facility] 01-28-2022 COVID-19 mRNA, Comirnaty (Pfizer) DO Nathan Hathaway Work Phone: [facility] 01-28-2022 COVID-19 Pfizer Nathan michelle Other [facility] 07-30-2021 COVID-19 vaccine, ag e 12+ yr (Deed-[employer] - PURPLE TOP) Luis Mckenzie MD Work Phone: [facility] 07-22-2021 zoster vaccine, live Suly Hathaway Other [facility] 07-19-2021 influenza, high-dose , quadrivalent vaccine (FLUZONE HIGH DOSE QUADRIVALENT) Luis Mckenzie MD Work Phone: [facility] 07-18-2021 influenza virus vaccine, split virus (incl. purified surface antigen) Nathan Hathaway Other [employer] Other 07-18-2021 influenza virus vaccine, unspecified formulation [facility] 05-21-2021 zoster vaccine recombinant Luis Mckenzie MD Work Phone: [facility] 05-21-2021 zoster vaccine, live Benjami n Fransico Other [facility] 12-18-2020 COVID-19 vaccine, ag e 12+ yr (PFIZER-BIONTECH - PURPLE TOP) Luis Mckenzie MD Work Phone: [facility] 11-27-2020 COVID-19 Vaccine Moderna - Documentation Purposes Only Nathan Hathaway Other [facility] 11-27-2020 COVID-19 vaccine, ag e 12+ yr (PFIZER-BIONTECH - PURPLE TOP) Luis Mckenzie MD Work Phone: [facility] 08-11-2020 influenza virus vaccine, split virus (incl. purified surface antigen) Nathan Hathaway Other [employer] [facility] [employer] Other 08-11-2020 influenza virus vaccine, unspecified formulation [facility] 07-09-2019 AS03 adjuvant Arrival Radiol ogy Work Phone: [facility] 07-09-2019 Seasonal trivalent influenza vaccine, adjuvanted, preservative free Luis Mckenzie MD Work Phone: [facility] 08-13-2018 AS03 adjuvant Arrival Radiol ogy Work Phone: [facility] 08-13-2018 influenza virus vaccine, split virus (incl. purified surface antigen) Nathan Hathaway Other [employer] Other 08-13-2018 influenza virus vaccine, unspecified formulation [facility] 08-13-2018 Seasonal trivalent influenza vaccine, adjuvanted, preservative free Luis Mckenzie MD Work Phone: [facility] 08-03-2017 influenza virus vaccine, split virus (incl. purified surface antigen) Nathan Hathaway Other [facility] [employer] Other 08-03-2017 influenza virus vaccine, unspecified formulation [facility] 08-03-2017 influenza, high dose seasonal, preservative-free Luis Mckenzie MD Work Phone: [facility] 07-13-2016 influenza virus vaccine, split virus (incl. purified surface antigen) Nathan Hathaway Other [facility] [employer] Other 07-13-2016 influenza virus vaccine, unspecified formulation [facility] 09-13-2015 pneumococcal conjuga te vaccine, 13 valent Nathan Hathaway Other [facility] 08-17-2015 influenza virus vaccine, split virus (incl. purified surface antigen) Nathan Hathaway Other [facility] [employer] Other 08-17-2015 influenza virus vaccine, unspecified formulation [facility] 07-16-2014 tetanus and diphther ia toxoids, adsorbed, preservative free, for adult use (5 Lf of tetanus toxoid and 2 Lf of diphtheria toxoid) Nathan Hathaway Other [facility] 07-09-2013 tetanus and diphther ia toxoids, adsorbed, preservative free, for adult use (5 Lf of tetanus toxoid and 2 Lf of diphtheria toxoid) Nathan Hathaway Other [facility] 08-11-2010 pneumococcal polysaccharide vaccine, 23 valent Nathan Hathaway Other [facility] Payers Date Payer Category Payer Medicare supplementa l policy (as second payer) A[employer] [id number] 2022 Unknown 2020 Private Health Insurance [facility] AAR SUPPLEMENT [id number] 2020-Present [phone] [address] [place] [address] Indemnity [id number] 2020 Private Health Insurance [id number] 2007 Medicare MEDICARE MEDICAR E A AND B [id number] 2007-Present [phone] [place] [address] Medicare [id number] 2007 Medicare [id number] 1959 Medicare [id number] 1959 Unknown [id number] [id number] 1942 Unknown [id number] 2.16.840.1.396385.3.579. 2.593 1942 Unknown [id number] 2.16.840.1.226361.3.579. 2.593 1942 Unknown [id number] 2.16.840.1.639703.3.579. 2.593 1942 Unknown [id number] 2.16.840.1.641660.3.579. 2.593 1942 Unknown [id number] 2.16.840.1.813542.3.579. 2.593 1942 Unknown [id number] 2.16.840.1.730670.3.579. 2.593 1942 Unknown [id number] 2.16.840.1.466717.3.579. 2.593 1942 Unknown [id number] 2.16.840.1.733145.3.579. 2.356 1942 Unknown [id number] 2.16.840.1.351280.3.579. 2.356 1942 Unknown [id number] 2.16.840.1.928740.3.579. 2.1259 1942 Unknown [id number] 2.16.840.1.508278.3.579. 2.1259 1942 Unknown [id number] 2.16.840.1.294932.3.579. 2.1259 1942 Unknown [id number] 2.16.840.1.681782.3.579. 2.1244 1942 Unknown [id number] 2.16.840.1.210525.3.579. 2.1244 1942 Unknown [id number] 2.16.840.1.259707.3.579. 2.1244 1942 Unknown [id number] 2.16.840.1.456759.3.579. 2.1244 1942 Unknown [id number] 2.16.840.1.980360.3.579. 2.1246 Medicare Medicare Outpatient [id number] Unknown [id number] Social History Date Type Detail Facility Start: 08-01-2021 End: 03-05-2024 Tobacco smoking status [facility] Ex-smoker [facility] End: 10-29-1992 History of tobacco use Cigarette Smoker [facility] Start: 08-01-2021 End: 03-05-2024 Tobacco use and exposure Smokeless tobacco non-user [facility] Start: 1940 Sex Assigned At Not on file [facility] Start: 05-12-2022 End: 03-17-2025 Exposure to SARS-CoV-2 (event) Not sure [facility] End: 10-29-1992 History of tobacco use Current smoker [facility] Start: 12-04-2022 End: 06-04-2023 Sex Assigned At [facility] Start: 12-04-2022 End: 06-04-2023 No illicit drug use No illicit drug use [facility] Comment on above: 2 coffees in am and 1 coffee at hs; 1997; Start: 1940 Sex Assigned At Female F [facility] Start: 06-04-2023 End: 07-08-2025 Alcohol intake Ex-drinker (finding) [facility] Start: 09-29-2012 Adult Depression Screening Assessment 0 [facility] Start: 12-18-2023 End: 02-12-2025 Tobacco smoking status NHIS Never smoked tobacco (finding) [facility] Start: 03-05-2024 End: 01-12-2025 Alcoholic beverage intake Lifetime non-drinker (finding) [facility] Work Phone: Start: 09-11-2024 End: 03-19-2025 Sex Female (finding) [facility] Medical Equipment Procedure Code Equipment Code Equipment [...] Facility 05-18-2023 Functional status Patient at [facility] Work Phone: 03-09-2023 Functional status Patient at Baseline [facility] Work Phone: Mental Status Date Assessment Result Facility 05-18-2023 Cognitive function Cognitive Sta tus Patient at Baseline [facility] Work Phone: 03-09-2023 Cognitive function Cognitive Sta tus Patient at Baseline [facility] Work Phone: Clinical Notes [...] details of follow up/intervention Yolanda Cobian RN [facility] 07-10-2025 Miscellaneous Notes Refer to providers phone encounter for details of follow up/intervention Yolanda Cobian RN Labs still pending. Yolanda Cobian RN Please call Her daughter Marianna with today's lab results. [phone] documented in this encounter [facility] 07-10-2025 Telephone encounter Note Called Dr Hathaway's office and spoke with Dayana. I informed her of Mrs Joaquin worsening anemia/renal function and elevated blood proteins (refer to note per Kg Petit PA-C from today). She appreciated the update and will discuss with Dr Hathaway. Yolanda Cobian RN [facility] 07-10-[address] Hathaway's [...] Hathaway's office Please return the call at [phone] KERRY Menendez documented in this encounter [facility] 07-10-[address] Nathan Hathaway's office is calling today regarding Asking the question why labs were repeated on 07/08/2025 when she just had labs drawn on 06/23/2025. Please call Dr Hathaway's office back. Patient has been identified by name and birthdate. Person calling: Dr Nathan Hathaway's office Please return the call at [phone] KERRY Menendez [facility] 07-10-2025 Telephone encounter Note Labs still pending. Yolanda Cobian RN [facility] 07-08-2025 Telephone encounter Note Please call Her daughter Marianna with today's lab results. [phone] [facility] 07-07-2025 Note HNO ID: [id number] Author: PAOLO CASILLAS APRN.DENTISTRY TEACHER Service: ? Author Type: Nurse Practitioner Type: [...] Vaping Use Vap (more content not included)... [facility] 07-07-2025 History of Presen t illness Narrative [...] 06/23/2025. (Scanned) IgM elevated, M-protein 0.2, and [place]/Lambda ration 10.59. Will repeat labs today. Hemoglobin [...] shortness of breath and was hospitalized at [facility] and treated for suspected pneumonia. Apparently it was later felt she had heart disease, and cardiac catheterization revealed severe coronary artery disease. She subsequently underwent stent placement at [facility]. April 2023 she developed severe shortness of breath and was hospitalized at [facility] 05/17/2023 with CHF. She improved with diuresis [...] which included preparing to see the patient, [id number] patient care, completing clinical documentation, obtaining and/or reviewing separately obtained history, performing a medically appropriate examination, counseling and educating the patient/family/caregiver, ordering medications, tests, or procedures, independently interpreting results (not separately reported), and communicating results to the patient/family/caregiver. documented in this encounter [facility] 07-06-2025 Telephone encounter Note Patient coming Sunday07/08/25 for follow up labs. Please add lab orders. Thanks. Loree Rosado MA [facility] 05-19-2025 Evaluation note Diagnosis Onset Date Resolution Acute bronchitis due to other specified organisms noneactive April 292024 3:17pm Acute exacerbation of chronic obstructive airways disease noneactive May 19, 2025 3:17pm ASHD (arteriosclerotic heart disease) acute June 19 9:23am Chronic bronchitis acute June 19, 2025 9:23am Chronic kidney disease acute [facility] 2024 9:23am Chronic venous insufficiency acute June 19 9:23am Essential hypertension acute [facility] 2024 9:23am OMAR (generalized anxiety disorder) [...] visit, subsequent noneactive June 19, 025 9:23am [facility] Work Phone: 1(191) 334-534707-22-2025 Evaluation note* Diagnosis Onset Date Resolution Status Admit Date Acute bronchitis due to othe r specified organisms noneactive May 19, 025 3:17pm Acute exacerbation of chroni c obstructive airways disease noneactive May 19, 2025 3:17pm Anemia acute June 19, 025 9:23am ASHD (arteriosclerotic heart disease) acute June 19 9:23am Chronic bronchitis acute June 19, 2025 9:23am Chronic kidney disease acute [facility] 2024 9:23am Chronic venous insufficiency acute June 19, 2025 9:23am Essential hypertension acute [facility] 2024 9:23am OMAR (generalized anxiety disorder) [...] fraction (HFpEF) noneactive July 21, 2025 3:32pm [facility] Work Phone: 1(424) 645-613807-22-2025 Evaluation note* Diagnosis Onset Date Resolution Status [...] fraction (HFpEF) noneactive July 21, 2025 3:32pm [facility] Work Phone: 1(113) 232-150705-16-2025 Evaluation note* Diagnosis Onset Date Resolution Status [...] fraction (HFpEF) noneactive March 19, 2025 11:21am [facility] Work Phone: 1(676) 584-217904-15-2025 History of Present illness Narrative* Reyna Esparza MD - 02/25/2025 9:00 AM EDT Subjective Patient ID: Lashaun Joaquin is a 84 y.o. female who presents for Thyroid Nodule (Follow ultrasound [facility] 02/10/25) US shows an 11mm nodule that is unchanged and mult subcentimeter nodules. No family history on file. Active Ambulatory Problems Diagnosis Date Noted Dry eyes 04/28/2024 Epiretinal membrane (ERM) of left eye 04/28/2024 Blepharitis of upper and lower eyelids of both eyes 04/28/2024 Abnormal cardiovascular stress test 11/24/2024 Adrenal nodule ([facility]/HCC) 11/24/2024 Anemia 11/24/2024 ASHD (arteriosclerotic heart disease) ([facility]) 10/17/2023 Atrophic vaginitis 11/24/2024 BMI 33.0-33.9,adult 03/05/2024 Cervical spondylosis with radiculopathy 11/24/2024 Chronic bronchitis (CMS/HCC) 11/24/2024 Chronic heart failure with preserved ejection fraction (HFpEF) ([facility]) 11/24/2024 Chronic obstructive pulmonary disease with (acute) exacerbation ([facility]) 11/24/2024 Chronic venous insufficiency 11/24/2024 COVID 10/17/2023 Elevated serum immunoglobulin free light chain level 11/24/2024 Essential hypertension (CMS/HCC) 10/17/2023 Flash pulmonary edema ([facility]/HCC) 11/24/2024 Former smoker 10/17/2023 OMAR (generalized anxiety disorder) ([facility]/HCC) 11/24/2024 Gastroesophageal reflux disease with esophagitis without [...] stable documented in this encounterEllis Fischel Cancer [id number] Miscellaneous Notes* Telephone Encounter - Loree Rosado MA - 07/06/2025 9:31 AM EDT Patient coming Sunday07/08/25 for follow up labs. Please add lab orders. Thanks. Loree Rosado MA documented in this encounterWilson Memorial Hospital03-27-2025 Evaluation note* Diagnosis Onset Date Resolution Status Admit Date Chronic kidney disease acute [facility] 2024 9:51am Nocturnal leg cramps acute [facility] 2024 9:51am Right knee pain acute December [...] 2025 1 1:21am Chronic kidney disease acute Me 2024 11:21am Chronic venous insufficiency acute March 19, 2025 11:21am Essential hypertension acute Me 2024 11:21am Subclinical hypothyroidism acute March 19, 2025 11:21am Thyroid nodule acute March 19, 2025 11:21am [facility] [place] [facility] Work Phone: [phone] 988-533303-17-2025 Evaluation + Plan note* Assessment & Plan Note - CINTIA Gallego - 01/12/2025 3:48 PM EDTAssociated Problem(s): Cardiac and Vasculature January 2024 TTE LVEF greater than 55% Biatrial enlargement mild [facility] Work Phone: [phone] 320-273703-17-2025 Miscellaneous Notes* Assessment & Plan Note - [...] heart disease) March 09, 2023 Mid/proximal RCA PCI/Mattoon 4x15mm & 4x18mm Proximal diagonal PCI/Mattoon 2.5 x 18 mm LAD 10% Circumflex [...] hypertension Optimal in office documented in this [facility] Work Phone: [phone]) 432-782203-17-2025 Evaluation + Plan note* Assessment & Plan Note - CINTIA Gallego - 01/12/2025 3:47 PM EDTAssociated Problem(s): Hyperlipidemia High intensity statin January 2024 HDL 42, cholesterol 158 [facility] Work Phone: [phone] 654-367803-17-2025 Evaluation + Plan note* Assessment & Plan Note - CINTIA Gallego - 01/12/2025 3:47 PM EDTAssociated Problem(s): ASHD (arteriosclerotic heart disease) March 09, 2023 Mid/proximal RCA PCI/Mattoon 4x15mm & 4x18mm Proximal diagonal PCI/Willie 2.5 x 18 mm LAD 10% Circumflex normal LVEF 65% February 2024 MPI ischemia, EF 88% Current daily activity at 4 METS without concerning symptoms [facility] Work Phone: [phone] 153-460103-17-2025 Evaluation + Plan note* Assessment & Plan Note - CINTIA Gallego - 01/12/2025 3:46 PM EDTAssociated Problem(s): Palpitations Reports fairly daily episodes of hearing my heart thumping going into my ears No prior documented A-fib or arrhythmia. Was taken off of carvedilol January 2024 hospitalization due to bradycardia [facility] Work Phone: [phone]) 564-788003-17-2025 Evaluation + Plan note* Assessment & Plan Note - CINTIA Gallego - 01/12/2025 3:46 PM EDTAssociated Problem(s): Essential hypertension Optimal in office [facility] Work Phone: [phone] 329-846603-17-2025 History of Present illness Narrative* CINTIA Gallego [...] heart disease) March 09, 2023 Mid/proximal RCA PCI/Mattoon 4x15mm & 4x18mm Proximal diagonal PCI/Mattoon 2.5 x 18 mm LAD 10% Circumflex [...] Echo (RODGERS, diastolic dysfunction) Holden Rosado MSN, ARC TRIMMER-DENTISTRY TEACHER, PMHNP-BC [facility] [place], [place] Please excuse any errors in grammar or translation related to this dictation. Voice recognition software was utilized to prepare this document. documented in this encounterCleveland Clinic Foundation Work Phone: [phone] 612-145203-17-2025 Instructions* Patient Instructions* CINTIA Gallego - 01/12/2025 [...] Echo (RODGERS, diastolic dysfunction) documented in this encounterCleveland Clinic Foundation Work Phone: [phone] History of Present illness Narrative* Reyna Esparza MD - 11/25/2024 2:00 PM EST Subjective Patient ID: Lashaun Joaquin is a 84 y.o. female who presents for Thyroid Nodule Pt reports she had a thyroid US after being found to be mildly hypothyroid. US shows an 11mm mixed thyroid nodule. FNA performed that was Calvin 1. No family H/O thyroid CA. No radiation exposure. Review of Systems All other systems reviewed and are negative. No family history on file. Active Ambulatory Problems Diagnosis Date Noted Dry eyes 04/28/2024 Epiretinal membrane (ERM) of left eye 04/28/2024 Blepharitis of upper and lower eyelids of both eyes 04/28/2024 Abnormal cardiovascular stress test 11/24/2024 Adrenal nodule ([facility]) 11/24/2024 Anemia 11/24/2024 ASHD (arteriosclerotic heart disease) ([facility]) 10/17/2023 Atrophic vaginitis 11/24/2024 BMI 33.0-33.9,adult 03/05/2024 Cervical spondylosis with radiculopathy 11/24/2024 Chronic bronchitis ([facility]) 11/24/2024 Chronic heart failure with preserved ejection fraction (HFpEF) ([facility]) 11/24/2024 Chronic obstructive pulmonary disease with (acute) exacerbation ([facility]) 11/24/2024 Chronic venous insufficiency 11/24/2024 COVID 10/17/2023 Elevated serum immunoglobulin free light chain level 11/24/2024 Essential hypertension ([facility]) 10/17/2023 Flash pulmonary edema ([facility]) 11/24/2024 Former smoker 10/17/2023 OMAR (generalized anxiety disorder) ([facility]) 11/24/2024 Gastroesophageal reflux disease with esophagitis without hemorrhage 11/24/2024 Heart failure ([facility]) 11/24/2024 Resolved Ambulatory Problems Diagnosis Date Noted No Resolved Ambulatory Problems Past Medical History: Diagnosis Date Arthritis Cataract Congestive heart failure (CHF) ([facility]) Coronary artery disease ([facility]) GERD (gastroesophageal reflux disease) Hypercholesteremia ([facility]) Hypertension ([facility]) Peripheral neuropathy Past Surgical History: Procedure Laterality [...] December documented in this encounterEllis Fischel Cancer [id number] Chief complaint+Reason for visit Narrative* Chief Complaint [...] 10:20am Thyroid nodule December 16, 2024 10:20am [facility] [place] [facility] Work Phone: [phone] 512-744701-20-2025 Chief complaint+Reason for visit Narrative * Chief [...] knee pain January 22, 2025 9:[address] [facility] Work Phone: [phone] 253-898601-20-2025 Evaluation note* Diagnosis Onset Date Resolution Status [...] 10:20am Thyroid nodule acute November 292024 10:20am [facility] [place] [facility] Work Phone: [phone] 542-116101-20-2025 Evaluation note* Diagnosis Onset Date Resolution Status [...] 292024 10:20am Chronic kidney disease acute [facility] 2024 9:51am Nocturnal leg cramps acute [facility] 2024 9:51am Right knee pain acute December 9:51am [facility] [place] [facility] Work Phone: [phone] History of Present illness Narrative* Edinson Perry, [...] diastolic heart failure. She was hospitalized at [facility] we were not involved in this. Her medications were changed, cluck carvedilol was discontinued and Entresto was initiated. She has supranormal left ventricular function with ejection fraction of 88% and normal perfusion scan February 2023. She did undergo primary PCI proximal RCA and diagonal branch in February 2023 for subsequentnon-ST elevation [place] event with preserved LV function. She is [...] exam, discussion and plan. documented in this encounterCleveland Clinic Foundation Work Phone: [phone]) 429-466212-11-2024 Instructions* Patient Instructions* Racquel Olivera LPN - [...] Provided instructions on exercise. documented in this encounterCleveland Clinic Foundation Work Phone: [phone]) 114-795711-14-2024 Evaluation note* Diagnosis Onset Date Resolution Status [...] acute September 11, 2024 10:16am [facility] Work Phone: [phone] Evaluation note* Diagnosis Onset Date Resolution Status [...] 10:16am Thyroid nodule acute November 172024 9:45am [facility] [place] [facility] Work Phone: [phone] 115-638806-25-2024 Evaluation + Plan note* Assessment & Plan Note - CINTIA Gallego - 04/22/2024 11:58 AM EDTAssociated Problem(s): BMI 32.0-32.9,adult Reviewed the merits of healthy lifestyle choices on overall cardiovascular health. [facility] Work Phone: [phone] Evaluation + Plan note* Assessment & Plan Note - CINTIA Gallego - 04/22/2024 11:58 AM EDTAssociated Problem(s): Hyperlipidemia High intensity statin January 2024 HDL 42, cholesterol 158 [facility] Work Phone: [phone] 312-245206-25-2024 Evaluation + Plan note* Assessment & Plan Note - CINTIA Gallego - 04/22/2024 11:58 AM EDTAssociated Problem(s): Essential hypertension Optimal in the office [facility] Work Phone: [phone] 208-267706-25-2024 Evaluation + Plan note* Assessment & Plan Note - CINTIA Gallego - 04/22/2024 11:58 AM EDTAssociated Problem(s): ASHD (arteriosclerotic heart disease) March 09, 2023 Mid/proximal RCA PCI/Mattoon 4x15mm & 4x18mm Proximal diagonal PCI/Mattoon 2.5 x 18 mm LAD 10% Circumflex normal LVEF 65% February 2024 MPI ischemia, EF 88% Current daily activity at 4 METS without concerning symptoms [facility] Work Phone: [phone] 561-738106-25-2024 Miscellaneous Notes* Assessment & Plan Note - [...] METS without concerning symptoms documented in this [facility] Work Phone: [phone] History of Present illness Narrative* CINTIA Gallego [...] heart disease) March 09, 2023 Mid/proximal RCA PCI/Mattoon 4x15mm & 4x18mm Proximal diagonal PCI/Mattoon 2.5 x 18 mm LAD 10% Circumflex [...] Dr. Perry 6 months Holden Rosado MSN, ARC TRIMMER-DENTISTRY TEACHER, PMHNP-[facility] Please excuse any errors in grammar or translation related to this dictation. Voice recognition software was utilized to prepare this document. documented in this [facility] Work Phone: [phone]) 400-864806-24-2024 Instructions* Patient Instructions* CINTIA Gallego - 04/21/2024 [...] Dr. Perry 6 months documented in this encounterCleveland Clinic Foundation Work Phone: [phone] 552-217905-09-2024 Evaluation + Plan note* Assessment & Plan Note - ICNTIA Gallego - 03/06/2024 10:42 AM EDTAssociated Problem(s): BMI 32.0-32.9,adult Reviewed the merits of healthy lifestyle choices on overall cardiovascular health. [facility] Work Phone: [phone]) 139-391405-09-2024 Evaluation + Plan note* Assessment & Plan Note - CINTIA Gallego - 03/06/2024 10:42 AM EDTAssociated Problem(s): Hyperlipidemia High intensity statin January 2024 HDL 42, cholesterol 158 [facility] Work Phone: [phone] Miscellaneous Notes* Assessment & Plan Note - [...] Circumflex normal LVEF 65% documented in this [facility] Work Phone: [phone] Evaluation + Plan note* Assessment & Plan Note - CINTIA Gallego - 03/06/2024 10:41 AM EDTAssociated Problem(s): Essential hypertension Optimal in office [facility] Work Phone: [phone] 556-858905-09-2024 Evaluation + Plan note* Assessment & Plan Note - CINTIA Gallego - 03/06/2024 10:41 AM EDTAssociated Problem(s): ASHD (arteriosclerotic heart disease) March 09, 2023 Mid/proximal RCA PCI/Mattoon 4x15mm & 4x18mm Proximal diagonal PCI/Mattoon 2.5 x 18 mm LAD 10% Circumflex normal LVEF 65% [facility] Work Phone: [phone] 511-950205-08-2024 History of Present illness Narrative* CINTIA Gallego - 03/05/2024 11:30 AM EDT Chief Complaint I am just not feeling good Reason for Visit Patient presents to the office today for outpatient follow-up for hospital follow-up. Last evaluated in clinic by Dr. Perry September 2023. January 2024: Hospitalized at [facility] due to accelerated hypertension and bradycardia. [...] contact the office if new symptoms arise. TELEPHONE ORDER CLERK ROOM SERVICE after testing Holden Rosado MSN, ARC TRIMMER-DENTISTRY TEACHER, PMHNP-[facility] Please excuse any errors in grammar or translation related to this dictation. Voice recognition software was utilized to prepare this document. documented in this [facility] Work Phone: [phone]) [phone] Instructions* Patient Instructions* CINTIA Gallego - 03/05/2024 [...] contact the office if new symptoms arise. TELEPHONE ORDER CLERK ROOM SERVICE after testing documented in this encounterCleveland Clinic Foundation Work Phone: [phone] Evaluation note* Encounter Date Diagnosis Assessment Notes Treatment Notes Treatment Clinical Notes Oct, Primary insomnia (ICD-10 - F51.01) [employer] Other 01-05-2024 Evaluation note* Encounter Date Diagnosis [...] in remission (ICD-10 - F17.211) Continue abstinence [employer] [facility] 12-05-2023 Evaluation note* Encounter Date Diagnosis [...] and feet daily for blisters and ulcerations. [employer] Other 11-29-2023 Evaluation note* Encounter Date Diagnosis Assessment Notes Treatment Notes Treatment Clinical Notes Aug, Chronic venous insufficiency (ICD-10 - I87.2) [employer] Other 11-24-2023 Evaluation note* Encounter Date Diagnosis Assessment Notes Treatment Notes Treatment Clinical Notes Aug, Subacute cough (ICD-10 - R05.2) Aug, Dyspnea on exertion (ICD-10 - R06.09) [employer] Other 11-20-2023 Evaluation note* Encounter Date Diagnosis Assessment Notes Treatment Notes Treatment Clinical Notes Aug, Chronic venous insufficiency (ICD-10 - I87.2) [employer] Other 11-16-2023 Evaluation note* Encounter Date Diagnosis Assessment Notes Treatment Notes Treatment Clinical Notes Aug, Chronic venous insufficiency (ICD-10 - I87.2) [employer] Other 11-14-2023 Evaluation note* Encounter Date Diagnosis [...] using EDEL as needed to mobilize secretions. [employer] Other 10-19-2023 Evaluation note* Encounter Date Diagnosis Assessment Notes Treatment Notes Treatment Clinical Notes Jul, Aphthous ulcer (ICD-10 - K12.0) [employer] Other 09-20-2023 Evaluation note* Encounter Date Diagnosis Assessment Notes Treatment Notes Treatment Clinical Notes Jun, Dysuria (ICD-10 - R30.0) [employer] Other 09-19-2023 Evaluation note* Encounter Date Diagnosis Assessment Notes Treatment Notes Treatment Clinical Notes Jun, Dysuria (ICD-10 - R30.0) [employer] Other 08-28-2023 Evaluation note* Encounter Date Diagnosis Assessment Notes Treatment Notes Treatment Clinical Notes May, Chronic venous insufficiency (ICD-10 - I87.2) [employer] Other 08-24-2023 Evaluation note* Encounter Date Diagnosis Assessment Notes Treatment Notes Treatment Clinical Notes May, Primary insomnia (ICD-10 - F51.01) [employer] Other 08-21-2023 Evaluation note* Encounter Date Diagnosis Assessment Notes Treatment Notes Treatment Clinical Notes May, Diastolic hypertension (ICD-10 - I10) [employer] Other 08-18-2023 Evaluation note* Encounter Date Diagnosis Assessment Notes Treatment Notes Treatment Clinical Notes May, Primary hypertension (ICD-10 - I10) [employer] Other 08-18-2023 Evaluation note* Encounter Date Diagnosis Assessment Notes Treatment Notes Treatment Clinical Notes May, Diastolic hypertension (ICD-10 - I10) [employer] Other 08-11-2023 Evaluation note* Encounter Date Diagnosis [...] and feet daily for blisters and ulcerations. [employer] Other 08-09-2023 Miscellaneous Notes* Telephone Encounter - [...] can further discuss then. documented in this encounterWilson Memorial Hospital08-07-2023 History of Present illness Narrative* [...] shortness of breath and was hospitalized at [facility] and treated for suspected pneumonia. Apparently it was later felt she had heart disease, and cardiac catheterization revealed severe coronary artery disease. She dumont bsequently underwent stent placement at [facility]. Apparently her shortness of breath persisted, and [...] shortness of breath [facility]. Apparently it was later felt she had heart disease, and cardiac catheterization revealed severe coronary artery disease. She subsequently underwent stent placement at [facility]. April 2023 she developed severe shortness of breath and was hospitalized at [facility] 05/17/2023with CHF. She improved with diuresis but [...] MD CC: Dr. Perry documented in this encounterWilson Memorial Hospital07-28-2023 Evaluation note* Encounter Date Diagnosis Assessment [...] dependence, cigarettes, in remission (ICD-10 - F17.211) [employer] Other 07-21-2023 Discharge summary Author Lj Ryan [facility] May 18, 2023 11:44am Note Date/Time May 18, 2023 11:4 4am [facility] [address] [place] [address] Discharge Summary Signed Patient: Lashaun Joaquin MR#: [id number] : 1940 Acct:[id number] Age/Sex: 82 / F Adm Date: 3 Loc: Room: [address] [place] [address]: Lj Ryan DO Copies to: [...] % (Auto) 73.6, Lymph % (Auto) 15.1, Rabun % (Auto) 8.7, Eos % (Auto) 1.9, Baso % (Auto) 0.7, Nucleat RBC Rel Count 0.1, Neut # (Auto) 4.4, Lymph # (Auto) 0.9 L, Rabun # (Auto) 0.5, Eos # (Auto) 0.1, [...] signed by Lj Ryan DO> 05/18/23 1144 [facility] Work Phone: [phone]) 299-353607-20-2023 History and physical note Author Lj Ryan [facility] May 17, 2023 3:56pm Note Date/Time May 17, 2023 3:49 pm [facility] [address] [place] [address] Hospitalist H&P Signed Patient: Lashaun Joaquin MR#: [id number] : 1940 Acct:[id number] Age/Sex: 82 / F Adm Date: 3 Loc: Room: [address] [place] [address] Type: ADM INOo Attending Dr: Lj Ryan [...] noted below or in HPI [facility] Medical History (Updated 05/17/23 @ [...] % (Auto) 9.3 % (.) 05/17/23 10:25 Rabun % (Auto) 5.5 % (.) 05/17/23 10:25 Eos % (Auto) 0.5 % (.) 05/17/23 10:25 Baso % (Auto) 0.5 % (.) 05/17/23 10:25 Nucleat RBC Rel Count 0.0 /100 WBC (0-0.5) 05/17/23 10:25 Neut # (Auto) 8.6 x10E3/uL (1.8-7.7) H 05/17/23 10:25 Lymph # (Auto) 1.0 x10E3/uL (1.00-4.8) 05/17/23 10:25 Rabun # (Auto) 0.6 x10E3/uL (0.0-0.8) 05/17/23 10:25 [...] 1 Documented By: Lj Ryan DO 05/17/23 1546 Signed By: <Electronically signed by Lj Ryan DO> 05/17/23 [id number] [facility] Work Phone: [phone]) [phone] Evaluation note* Encounter Date Diagnosis Assessment Notes [...] [BMI ] 33.0-33.9, adult (ICD-10 - Z68.33) [employer] Other 07-12-2023 Evaluation note* Encounter Date Diagnosis [...] dependence, cigarettes, in remission (ICD-10 - F17.211) [employer] Other 06-29-2023 Evaluation note* Encounter Date Diagnosis Assessment Notes Treatment Notes Treatment Clinical Notes Mar, Paronychia of finger of right hand (ICD-10 - L03.011) [employer] Other 06-29-2023 Evaluation note* Encounter Date Diagnosis [...] healthy diet. Mar, Paresthesias (ICD-10 - R20.2) [employer] Other 06-21-2023 Evaluation note* Encounter Date Diagnosis [...] post PCI/stent placement. Continue for 12 months [employer] Other 06-21-2023 Evaluation note* Encounter Date Diagnosis Assessment Notes Treatment Notes Treatment Clinical Notes Mar, Chronic bronchitis, simple (ICD-10 - J41.0) [employer] Other 05-30-2023 Evaluation note* Encounter Date Diagnosis Assessment Notes Treatment Notes Treatment Clinical Notes February, Paresthesias (ICD-10 - R20.2) [employer] Other 05-18-2023 Evaluation note* Encounter Date Diagnosis [...] Titrate Gabapentin and monitor for fluid retention [employer] Other 05-08-2023 Evaluation note* Encounter Date Diagnosis Assessment Notes Treatment Notes Treatment Clinical Notes February, Primary hypertension (ICD-10 - I10) February, Chronic venous insufficiency (ICD-10 - I87.2) [employer] Other 04-19-2023 Evaluation note* Encounter Date Diagnosis [...] pain, change in appetite or bowel habits [employer] Other 04-16-2023 Evaluation note* Encounter Date Diagnosis [...] chronic diastolic heart failure (ICD-10 - I50.33) [employer] Other 04-07-2023 Evaluation note* Encounter Date Diagnosis [...] Diet and exercise with continued statin therapy. [employer] Other 02-23-2023 Evaluation note* Encounter Date Diagnosis Assessment Notes Treatment Notes Treatment Clinical Notes Nov, Primary insomnia (ICD-10 - F51.01) [employer] Other 02-16-2023 Evaluation note* Encounter Date Diagnosis [...] mammogram for breast cancer (ICD-10 - Z12.31) [employer] Other 02-06-2023 History of Present illness Narrative* [...] PCP. Luis Mckenzie MD documented in this encounterWilson Memorial Hospital01-17-2023 Evaluation note* Encounter Date Diagnosis Assessment [...] or drinking prior to bedtime. Weight loss. [employer] Other 11-01-2022 Miscellaneous Notes* Telephone Encounter - Cristy Manzanares RN - 08/29/2022 1:59 PM EDT VM left with [facility] message. Encouraged to call with any additional questions or concerns. Cristy Manzanares RN * Telephone Encounter - Cristy aMnzanares RN - 08/29/2022 1:59 PM EDT ----- Message from Luis Mckenzie MD sent at 08/29/2022 1:18 PM EDT ----- Please inform the patient that her scans are stable. Chest CT actually improved with no new suspicious findings. CT abdomen shows a stable adrenal nodule. Unless new problems develop I will see her back as scheduled in November MARBIN Freeman documented in this encounterWilson Memorial Hospital10-31-2022 History of Present illness Narrative* Nancy [...] 28, 2022 12:49 PM documented in this encounterWilson Memorial Hospital08-01-2022 History of Present illness Narrative* Luis [...] PCP. Luis Mckenzie MD documented [facility]UC [facility] N[facility]ative - Reported * LASHAUN JOAQUIN is being seen for a consultation for abnormal test(s) results. * 82-year-old female seen in cardiology consultation at the request of Dr. Natalio hathaway for recent episode of respiratory distress, what sounds like congestive heart failure associated with accelerated hypertension, was admitted to [facility] briefly, diuresed approximately 14 pounds with diuretics. [...] and proceed with heart cath this Sunday -[facility] DO Work Phone: Evaluation note* Diagnosis Abnormal SPEP- Primary Other nonspecific findings on examination of blood Neuropathy - (NOS) 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 Lung nodules Other nonspecific abnormal finding of lung field documented in this encounter [facility] note* Diagnosis Abnormal SPEP- Primary Other nonspecific findings on examination of blood Neuropathy - (NOS) Lung nodules Other nonspecific abnormal finding of lung field documented in this encounter [facility] HospitalEvalubay[facility] [place] noteNo InformationNortBy[employer] Other Evaluation noteNo assessment information available [facility] Work Phone: evaluation note* Diagnosis Onset Date Resolution Status Flash pulmonary edema acute Heart failure acute Hypertension acute Hypertensive emergency acute Hypoxia acute [facility] Work Phone: Evaluation note* Diagnosis Abnormal SPEP- Primary Other nonspecific findings on examination of blood Anemia, unspecified type Neuropathy - (NOS) Heart disease Heart disease, unspecified documented in this encounter [facility] HospitalEvalub[facility] [place] note* Diagnosis Onset Date Resolution Status ASHD (arteriosclerotic heart disease) acute Chronic diastolic heart failure acute Chronic venous insufficiency acute Elevated cholesterol acute Essential hypertension acute OMAR (generalized anxiety disorder) acute Gastroesophageal reflux dise ase with esophagitis without hemorrhage acute 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 [facility] Work Phone: Evaluation note* Diagnosis [...] tube dysfunction acute Right otitis media acute [facility] Work Phone: Evaluation note* Diagnosis ASHD (arteriosclerotic heart disease)- Primary Coronary atherosclerosis of unspecified type of vessel, [place] or graft Essential hypertension Unspecified essential hypertension Mixed hyperlipidemia BMI 32.0-32.9,adult documented in this encounter [facility] Work Phone: Evaluation note* Diagnosis Onset Date [...] (generalized anxiety disorder) acute Subclinical hypothyroidism a [facility] Work Phone: Evaluation note* Diagnosis ASHD (arteriosclerotic heart disease) Coronary atherosclerosis of unspecified type of vessel, [place] or graft documented in this encounter [facility] Work Phone: Evaluation note* Diagnosis Onset Date Resolution Status Anemia acute ASHD (arteriosclerotic heart disease) acute Chronic diastolic heart failure acute Chronic venous insufficiency acute Essential hypertension acute OMAR (generalized anxiety disorder) acute Subclinical hypothyroidism a [place] Work Phone: Evaluation note* Diagnosis 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 Lung nodules Other nonspecific abnormal finding of lung field [facility] Diagnosis Onset Date Resolution Status [...] Subclinical hypothyroidism acute September 11, 2024 10:16am [facility] Work Phone: Evaluation note* Diagnosis Essential hypertension- Primary Unspecified essential hypertension ASHD (arteriosclerotic heart disease) Coronary atherosclerosis of unspecified type of vessel, [place] or graft Mixed hyperlipidemia BMI 32.0-32.9,adult documented in this encounter [facility] Work Phone: Evaluation note* Diagnosis ASHD (arteriosclerotic heart disease)- Primary Coronary atherosclerosis of unspecified type of vessel, [place] or graft Essential hypertension Unspecified essential hypertension Mixed hyperlipidemia BMI 32.0-32.9,adult Essential hypertension- Primary Unspecified essential hypertension ASHD (arteriosclerotic heart disease) Coronary atherosclerosis of unspecified type of vessel, [place] tribe or graft Mixed hyperlipidemia BMI 32.0-32.9,adult ASHD (arteriosclerotic heart disease) Coronary atherosclerosis of unspecified type of vessel, [place] tribe or graft Essential hypertension Unspecified essential hypertension BMI 33.0-33.9,adult Former smoker Personal history of tobacco use, presenting hazards to health S/P PTCA (percutaneous transluminal coronary angioplasty) Postsurgical percutaneous transluminal coronary angioplasty status Mixed hyperlipidemia Coronary arteriosclerosis after percutaneous transluminal coronary angioplasty (PTCA) documented in this encounter [facility] Work Phone: Evaluation note* Diagnosis Thyroid nodule (CMS/HCC)- Primary Nontoxic uninodular goiter [facility] Diagnosis ASHD (arteriosclerotic heart disease)- Primary Coronary atherosclerosis of unspecified type of vessel, [place] or graft Essential hypertension Unspecified essential hypertension Mixed hyperlipidemia BMI 32.0-32.9,adult Essential hypertension- Primary Unspecified essential hypertension ASHD (arteriosclerotic heart disease) Coronary atherosclerosis of unspecified type of vessel, [place] tribe or graft Mixed hyperlipidemia BMI 32.0-32.9,adult BMI 33.0-33.9,adult- Primary Essential hypertension Unspecified essential hypertension Palpitations ASHD (arteriosclerotic heart disease) Coronary atherosclerosis of unspecified type of vessel, [place] or graft Mixed hyperlipidemia documented in this encounter [facility] Work Phone: Evaluation note* Diagnosis Nontoxic multinodular goiter (CMS/HCC)- Primary Nontoxic multinodular goiter [facility] Diagnosis ASHD (arteriosclerotic heart disease)- Primary Coronary atherosclerosis of unspecified type of vessel, [place] tribe or graft Essential hypertension Unspecified essential hypertension Mixed hyperlipidemia BMI 32.0-32.9,adult Essential hypertension- Primary Unspecified essential hypertension ASHD (arteriosclerotic heart disease) Coronary atherosclerosis of unspecified type of vessel, [place] tribe or graft Mixed hyperlipidemia BMI 32.0-32.9,adult BMI 33.0-33.9,adult- Primary Essential hypertension Unspecified essential hypertension Palpitations ASHD (arteriosclerotic heart disease) Coronary atherosclerosis of unspecified type of vessel, [place] tribe or graft Mixed hyperlipidemia Essential hypertension Unspecified essential hypertension Palpitations documented in this encounter [facility] Work Phone: Evaluation note* Diagnosis Abnormal SPEP- Primary Other nonspecific findings on examination of blood [facility] [place] [facility] Diagnosis Abnormal SPEP- Primary Other nonspecific findings on examination of blood Primary hypertension Unspecified essential hypertension Hyperlipidemia, unspecified hyperlipidemia type Heart disease Heart disease, unspecified Edema, unspecified type 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 Anemia in other chronic diseases classified elsewhere documented in this encounter [facility] general Narrative - Reported* Type [...] Colonoscopy 2013 Hospitalization History see surgical history [employer] Other History general Narrative - Reported* Type [...] diagonal br Hospitalization History see surgical history [employer] Other Hospital Discharge instructions Additional Instructions Please [...] to control your blood pressure in the hospital.[facility] Work Phone: Hospital Discharge instructionsAmbulatory Orders* Referral to ENT Time Frame: 11/19/24, Location: None Selected [facility] Work Phone: Reason for referral (narrative)* Consultation (Routine) - Authorized Specialty Diagnoses / Procedures Referred By Contac t Referred To Contact Cardiology Diagnoses ASHD (arteriosclerotic heart disease) Procedures Follow Up In Cardiology Holden Rosado APRN-CNP [address] [place] [address] 2, [address] [address] Referral ID Status Reason Start Date Expiration Date V isits Requested Visits Authorized [id number] Authorized 03/05/2024 03/05/2025 1 1 * Cardiac Stress Testing (Routine) - Pending Review Specialty Diagnoses / Procedures Referred By Contac t Referred To Contact Radiology Diagnoses ASHD (arteriosclerotic heart disease) Procedures Nuclear Stress Test CHG MYOCARDIAL SPECT MULTIPLE STUDIES Holden Rosado APRN-CNP [address] [place] [address], [address] [address] Referral ID Status Reason Start Date Expiration Date V isits Requested Visits Authorized [id number] Pending Review 03/05/2024 03/05/2025 5 5 [facility] Work Phone: Reason for referral (narrative)* Consultation (Routine) - Authorized Specialty Diagnoses / Procedures Referred By Contac t Referred To Contact Cardiology Diagnoses ASHD (arteriosclerotic heart disease) Procedures Follow Up In Cardiology Holden Rosado APRN-CNP [address] [place] [address] 2, [place] [id number] Referral ID Status Reason Start Date Expiration Date V isits Requested Visits Authorized [id number] Authorized 04/21/2024 04/21/2025 1 1 [facility] Work Phone: Reason for referral (narrative)No reason for referral [facility] Reason for visit Narrative* CV Imaging (Routine) - Authorized Specialty Diagnoses / Procedures Referred By Contac t Referred To Contact Cardiology Diagnoses Essential hypertension Palpitations Procedures Transthoracic Echo Complete [facility] ECHO TTHRC R-T 2D W/WOM-MODE COMPL SPEC&COLR D Holden Rosado, ARC TRIMMER-DENTISTRY TEACHER [address] [facility] [address], [address] [place] [address] Phone: tel: fax: Referral ID Status Reason Start Date Expiration Date Visits Requested Visits Authorized [id number] Authorized Perform Procedure 01/12/2025 01/12/2026 1 1 [facility] Work Phone: Advance Directives Documents on File Type Date Recorded 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 Bookkeeping Clerk Expl anation Advance Directive(s) 08/01/2021 12:55 PM A dvance Directives Documents on File Type Date Recorded Patient Bookkeeping Clerk Expl anation Advance Directive(s) 08/01/2021 12:55 PM [...] COMPUTED TOMOGRAPHY THORAX W/CONTRAST Luis Mckenzie MD [address] [place] [address] [address] [place] [address] Ct Imaging Referral ID Status Reason Start Date Expiration Date Visits Requested Visits Authorized [id number] Authorized Auto-Generat ed Referral 05/29/2022 06/28/2023 1 1 Specialty Diagnoses / Procedures Referred By Contac t Referred To Contact CT IMAGING Diagnoses Disorder of adrenal gland (HCC) Procedures CT ABD/PEL W IVCON CT ABD & PELVIS W/CONTRAST Luis Mckenzie MD [address] [place] [place] [address] [place] [address] Ct Imaging Referral ID Status Reason Start Date Expiration Date Visits Requested Visits Authorized [id number] Authorized Auto-Generat ed Referral 05/29/2022 06/28/2023 1 1 Specialty Diagnoses / Procedures Referred By Contac t Referred To Contact Radiology Diagnoses ASHD (arteriosclerotic heart disease) Procedures Nuclear Stress Test CHG MYOCARDIAL SPECT MULTIPLE STUDIES Alonzo Holden Petra, ARC TRIMMER-DENTISTRY TEACHER [address] [facility] [address], [address] [place] [address] Referral ID Status Reason Start Date Expiration Date V isits Requested Visits Authorized [id number] Pending Review 03/05/2024 03/05/2025 5 5 Specialty Diagnoses / Procedures Referred By Contac t Referred To Contact CT IMAGING Diagnoses Lung nodules Procedures CT CHEST W IVCON DIAGNOSTIC COMPUTED TOMOGRAPHY THORAX W/CONTRAST Luis Mckenzie MD [address] [place] [place] [address] [address] [place] [address] [place] [address] Referral ID Status Reason Start Date Expiration Date V isits Requested Visits Authorized [id number] Closed Auto-Generate d Referral 05/29/2022 06/28/2023 1 1 Specialty Diagnoses / Procedures Referred By Contac t Referred To Contact CT IMAGING Diagnoses Disorder of adrenal gland (HCC) Procedures CT ABD/PEL W IVCON CT ABD & PELVIS W/CONTRAST Luis Mckenzie MD [address] [place] [place] [address] [address] [place] [address] [place] [address] Referral ID Status Reason Start Date Expiration Date V isits Requested Visits Authorized [id number] Closed Auto-Generate d Referral 05/29/2022 06/28/2023 1 1 Family History Unknown Family Member Name Dates Details Cardiac defibrillator in jorge ce: Mother, Brother Status:Active Family history of hypertensi on: Father, Brother(V17.49, Z82.49) Status:Active Family history of coronary a rtery disease: Father(V17.3, Z82.49) Status:Active Family history of malignant neoplasm: Sister, Brother(V16.9, Z80.9) Status:Active Relationship Condition Age at Onset Recorded Date/T jeryz brother Type 2 diabetes mellitus Unknown Heart disease Unknown father Myocardial infarction Unknown Not Specified History of implantab le cardioverter-defibrillator (ICD) insertion Unknown brother Malignant neoplasm of kidney Unknown sister Multiple sclerosis Unknown Leukemia Unknown brother Malignant neoplasm of lung Unknown Exposure to Agent Coke Unknown brother Malignant neoplasm of colon Unknown [...] neoplasm of lung Unknown Exposure to Agent Coke Unknown brother Malignant neoplasm of colon Unknown [...] neoplasm of lung Unknown Exposure to Agent Coke Unknown brother Malignant neoplasm of colon Unknown [...] 23am Screening mammogram for breast cancer [facility] 2024 9:23am Subclinical hypothyroidism June 19, 2025 [...] 9: 23am ASHD (arteriosclerotic heart disease) [facility] 2024 9:23am Chronic bronchitis June 19, [...] 23am Screening mammogram for breast cancer [facility] 2024 9:23am Subclinical hypothyroidism June 19, [...] 9: 23am ASHD (arteriosclerotic heart disease) [facility] 2024 9:23am Chronic bronchitis June 19, [...] 23am Screening mammogram for breast cancer [facility] 2024 9:23am Subclinical hypothyroidism June 19, [...] or prosecute any alcohol or drug abuse patient.[facility] the event this information is protected by the Federal Confidentiality of Alcohol and Drug Abuse Patient Records regulations: The Federal rules restrict any use of the information to criminally investigate or prosecute any alcohol or drug abuse patient.[facility] the event this information is protected by the Federal Confidentiality of Alcohol and Drug Abuse Patient Records regulations: The Federal rules restrict any use of the information to criminally investigate or prosecute any alcohol or drug abuse patient.[facility] the event this information is protected by the Federal Confidentiality of Alcohol and Drug Abuse Patient Records regulations: The Federal rules restrict any use of the information to criminally investigate or prosecute any alcohol or drug abuse patient.[facility] the event this information is protected by the Federal Confidentiality of Alcohol and Drug Abuse Patient Records regulations: The Federal rules restrict any use of the information to criminally investigate or prosecute any alcohol or drug abuse patient.[facility] the event this information is protected by the Federal Confidentiality of Alcohol and Drug Abuse Patient Records regulations: The Federal rules restrict any use of the information to criminally investigate or prosecute any alcohol or drug abuse patient.[facility] the event this information is protected by the Federal Confidentiality of Alcohol and Drug Abuse Patient Records regulations: The Federal rules restrict any use of the information to criminally investigate or prosecute any alcohol or drug abuse patient.[facility] the event this information is protected by the Federal Confidentiality of Alcohol and Drug Abuse Patient Records regulations: The Federal rules restrict any use of the information to criminally investigate or prosecute any alcohol or drug abuse patient.[facility] the event this information is protected by the Federal Confidentiality of Alcohol and Drug Abuse Patient Records regulations: The Federal rules restrict any use of the information to criminally investigate or prosecute any alcohol or drug abuse patient.[facility] the event this information is protected by the Federal Confidentiality of Alcohol and Drug Abuse Patient Records regulations: The Federal rules restrict any use of the information to criminally investigate or prosecute any alcohol or drug abuse patient.[facility] the event this information is protected by the Federal Confidentiality of Alcohol and Drug Abuse Patient Records regulations: The Federal rules restrict any use of the information to criminally investigate or prosecute any alcohol or drug abuse patient.[facility] Reason for Visit (unrecogniz ed section and content) Reason Comments Lab Orders Reason Comments abnormal spep Reason Comments Results Reason Comments Abnormal SPEP Reason Comments Follow-up bradycardia Specialty Diagnoses / Procedures Referred By Contac t Referred To Contact Radiology Diagnoses ASHD (arteriosclerotic heart disease) Procedures Nuclear Stress Test CHG MYOCARDIAL SPECT MULTIPLE STUDIES Holden Rosado, ARC TRIMMER-DENTISTRY TEACHER [address] [place] [address], [address] [address] Referral ID Status Reason Start Date Expiration Date V isits Requested Visits Authorized [id number] Pending Review 03/05/2024 03/05/2025 5 [address] Specialty Diagnoses / Procedures Referred By Contac t Referred To Contact CT IMAGING Diagnoses Lung nodules Procedures CT CHEST W IVCON DIAGNOSTIC COMPUTED TOMOGRAPHY THORAX W/CONTRAST Luis Mckenzie MD [address] [place] [address] [place] [address] Ct Imaging [id number] Referral ID Status Reason Start Date Expiration Date V isits Requested Visits Authorized [id number] Closed Auto-Generate d Referral 05/29/2022 06/28/2023 1 1 Reason Comments Follow-up Test resultx Specialty Diagnoses / Procedures Referred By Contac t Referred To Contact Cardiology Diagnoses ASHD (arteriosclerotic heart disease) Procedures Follow Up In Cardiology Edinson Perry DO [address] [place] [address], [address] [address] Holden Rosado ARC TRIMMER-DENTISTRY TEACHER [address] [facility] [address], [address] [address] Referral ID Status Reason Start Date Expiration Date V isits Requested Visits Authorized [id number] Authorized 10/17/2023 10/16/2024 1 1 Reason Comments Follow-up 6 month Specialty Diagnoses / Procedures Referred By Contac t Referred To Contact Cardiology Diagnoses ASHD (arteriosclerotic heart disease) Procedures Follow Up In Cardiology Holden Rosado, ARC TRIMMER-DENTISTRY TEACHER [address] [facility] [address], [address] [address] Phone: tel: fax: Referral ID Status Reason Start Date Expiration Date V isits Requested Visits Authorized [id number] Authorized 04/21/2024 04/21/2025 1 1 Reason Onset Date Comments Med Refill 10/09/2024 Reason Comments Thyroid Nodule Specialty Diagnoses / Procedures Referred By Contac t Referred To Contact Otolaryngology Diagnoses Nontoxic single thyroid nodule (CMS/HCC) Procedures [facility] Nathan Hathaway MD [address] [place] [address] Phone: tel: Reyna Esparza MD [address] [facility] [address] [place] [address] Phone: tel: fax: Referral ID Status Reason Start Date Expiration Date Visits Re quested Visits Authorized [id number] Closed 11/19/2024 05/18/2025 1 1 Reason Comments Follow-up 6 months Follow up f or Coronary Artery Disease Specialty Diagnoses / Procedures Referred By Contac t Referred To Contact Cardiology Diagnoses Essential hypertension Procedures Follow Up In Cardiology Edinson Perry DO [address] [facility] [address], [address] [address] Phone: tel: fax: Holden Rosado, ARC TRIMMER-DENTISTRY TEACHER [facility] [facility] [address], [address] [address] Phone: tel: fax: Referral ID Status Reason Start Date Expiration Date V isits Requested Visits Authorized [id number] Authorized 10/08/2024 10/08/2025 1 1 Reason Comments [...] Care Provider Active Start: December 18, 2023 RUIEL Sunshine Attending Provider Active Start : December 18, 2023 Team Status: Inactive Member Role Status Hortencia Hathaway DO Primary Care Provide r, Attending Provider Active Start: February 01, 2024 End: February 01, 2024 Remote Computer Terminal Operator Relationship Specialty Start Date End Date Nathan Hathaway DO PCP - General Internal Medicine 01/31/12 Remote Computer Terminal Operator Relationship Specialty Start Date End Date Nathan Hathaway DO PCP - General Internal Medicine 01/31/12 Remote Computer Terminal Operator Relationship Specialty Start Date End Date Nathan Hathaway DO PCP - General Internal Medicine 01/31/12 Remote Computer Terminal Operator Relationship Specialty Start Date End Date [...] , DO Admit Provider, Attending Provider Active Remote Computer Terminal Operator Relationship Specialty Start Date End Date Nathan Hathaway DO PCP - General Internal Medicine 01/31/12 Remote Computer Terminal Operator Relationship Specialty Start Date End Date Nathan Hathaway DO PCP - General Internal Medicine 01/31/12 Team Status: Active Member Role Status Dates Nathan Hathaway DO Primary Care Provide r, Attending Provider Active Start: February 02, 2024 Team Status: Inactive Member Role Status Dates Nathan Hathaway DO Primary Care Provider Active Start: February 13, 2024 End: February 13, 2024 Deja Pope APRN TELEPHONE ORDER CLERK ROOM SERVICE-C Attending Provider Act babar Start: February 13, 2024 End: February 13, 2024 Remote Computer Terminal Operator Relationship Specialty Start Date End Date [...] February 27, 2024 End: February 27, 2024 Remote Computer Terminal Operator Relationship Specialty Start Date End Date Nathan Hathaway DO PCP - General Internal Medicine 10/03/23 Remote Computer Terminal Operator Relationship Specialty Start Date End Date Nathan Hathaway DO PCP - General Internal Medicine 10/03/23 Remote Computer Terminal Operator Relationship Specialty Start Date End Date Nathan Hathaway DO PCP - General Internal Medicine 10/03/23 Remote Computer Terminal Operator Relationship Specialty Start Date End Date Nathan Hathaway DO PCP - General Internal Medicine 10/03/23 Remote Computer Terminal Operator Relationship Specialty Start Date End Date Nathan Hathaway DO PCP - General Internal Medicine 01/31/12 Remote Computer Terminal Operator Relationship Specialty Start Date End Date Nathan Hathaway DO PCP - General Internal Medicine 10/03/23 Remote Computer Terminal Operator Relationship Specialty Start Date End Date Nathan Hathaway DO PCP - General Internal Medicine 10/03/23 Remote Computer Terminal Operator Relationship Specialty Start Date End Date Nathan Hathaway MD [address] [place] [facility] [address] PCP - External PCP Internal Medicine 06/29/23 Remote Computer Terminal Operator Relationship Specialty Start Date End Date Nathan Hathaway MD [address] [place] [facility] [address] PCP - External PCP Internal Medicine 06/29/23 Remote Computer Terminal Operator Relationship Specialty Start Date End Date Nathan Hathaway MD [address] [place] [facility] [address] PCP - External PCP Internal Medicine 06/29/23 Remote Computer Terminal Operator Relationship Specialty Start Date End Date Nathan Hathaway DO PCP - General Internal Medicine 10/03/23 Team Status: Inactive Member Role Status Dates Nathan Hathaway DO Primary Care Provide r, Attending Provider Active Start: January 22, 2025 End: January 22, 2025 Remote Computer Terminal Operator Relationship Specialty Start Date End Date Nathan Hathaway MD [address] [place] [facility] [address] PCP - General Internal Medicine 02/10/25 Remote Computer Terminal Operator Relationship Specialty Start Date End Date Nathan Hathaway DO [address] [place] [facility] [address] PCP - General Internal Medicine 02/10/25 Remote Computer Terminal Operator Relationship Specialty Start Date End Date Nathan Hathaway DO [address] [place] [facility] [address] PCP - General Internal Medicine 02/10/25 Remote Computer Terminal Operator Relationship Specialty Start Date End Date Nathan Hathaway DO [address] [address] PCP - General Internal Medicine 03/09/25 Team [...] June 19, 2025 End: June 19, 2025 Remote Computer Terminal Operator Relationship Specialty Start Date End Date Nathan Hathaway DO PCP - General Internal Medicine 01/31/12 Remote Computer Terminal Operator Relationship Specialty Start Date End Date Nathan Hathaway DO PCP - General Internal Medicine 01/31/12 Remote Computer Terminal Operator Relationship Specialty Start Date End Date [...] Start: July 08, 2025 Fanny Bedoya APRN TELEPHONE ORDER CLERK ROOM SERVICE-C Attending Provider Active Start: July 08, 2025 Team Status: Active Member Role Status Dates Nathan Hathaway DO Primary Care Provider Active Start: July 15, 2025 Valentin Leonard MD Attending Provider Active Start: July 15, 2025 Team Status: Inactive Member Role Status Dates Nathan Hathaway DO Primary Care Provider Active Start: July 21, 2025 End: July 21, 2025 Ntahan Hathaway DO Attending Provider Active Sta rt: July 21, 2025 End: July 21, 2025 Team Status: Inactive Member Role Status Dates Nathan Hathaway DO Primary Care Provider Active Start: August 04, 2025 End: August 04, 2025 QUYNH LopezC Attending Provider Active Start: August 04, 2025 End: August 04, 2025 INFORMATION SOURCE (unrecogn ized section and content) DATE CREATED AUTHOR 03/08/2023 [facility] DATE CREATED AUTHOR AUTHOR'S ORGANIZ ATION 03/09/2023 [facility] DATE CREATED AUTHOR AUTHOR'S ORGANIZ ATION 03/11/2023 [facility] DATE CREATED AUTHOR AUTHOR'S ORGANIZ ATION 02/14/2025 [facility] DATE CREATED AUTHOR AUTHOR'S ORGANIZ ATION 02/26/2025 [facility] EPIC DATE CREATED AUTHOR AUTHOR'S ORGANIZ ATION 03/26/2025 [facility] DATE CREATED AUTHOR AUTHOR'S ORGANIZ ATION 03/26/2025 [facility] DATE CREATED AUTHOR AUTHOR'S ORGANIZ ATION 07/19/2025 [facility] Goals (unrecognized section and content) Goals [...] BE BASED ON THE PRIMARY CLINICAL RECORDS. [facility]. provides no warranty or guarantee of the accuracy or completeness of information in this document.
[2025-08-14] MEDS: PANTOPRAZOLE SODIUM 40 MG TABLET.DR PO (09:52)
[2025-08-14] MEDS: ENOXAPARIN SODIUM 40 MG/0.4 ML SYRINGE SUBQ (09:52)
[2025-08-14] MEDS: LOSARTAN POTASSIUM 50 MG TABLET PO (09:52)
[2025-08-14] MEDS: GABAPENTIN 100 MG CAPSULE PO ×2 (09:52→21:32)
[2025-08-14] MEDS: NITROGLYCERIN 0.1 MG/HR PATCH.TD24 1 PATCH TD (09:55)
[2025-08-14] MEDS: ALPRAZOLAM 0.25 MG TABLET PO ×2 (09:57→21:32)
--- NOTE | 2025-08-14 10:00 | CM.NOTE ---
Rounds made with Dr. Fields, discussed with pt reason for admission and plan of care moving forward. Discussed importance of 2gm NA diet and limiting water intake to 40oz. Dr. Fields discussed also increasing home dose of Lasix. Pt OBS status with possible discharge to home tomorrow. Pt continues to require oxygen at this time.
[2025-08-14] MEDS: IPRATROPIUM/ALBUTEROL SULFATE 3 ML AMPUL.NEB IH ×3 (11:00→21:06)
[2025-08-14] MEDS: ACETAMINOPHEN 325 MG TABLET 650 MG PO ×2 (11:16→21:32)
--- NOTE | 2025-08-14 11:52 | PM.HP ---
HPI H&P: HPI History of Present Illness Chief complaint: SHORTNESS OF BREATH CHF Narrative: Patient is an 84 year old female with medical hx of CAD s/p PCI on Plavix, follows with inserting press operator Dr. Perry and her PCP. patient presented to ER due to worsening SOB overnight. Patient was recently discharged from our facility after was treated for CHF. We switched her Bumex to Lasix upon discharge and increased blood pressure medication nifedipine as well. Patient reports that she gained 2 pounds over the past couple days, she was wheezing overnight and woke up this morning anxious and decided to come to the hospital. Patient reports taking her medications as prescribed. However according to the patient and her daughters, patient was drinking excessive amount of water more than what she is supposed to. states Did not know she was supposed to restrict her water intake . Here in the ER blood pressure slightly elevated, she was given IV Lasix in the ER, chest x-ray showed CHF similar to prior however she is around 91% on room air, she is feeling a bit better by the time I saw her however urine output so far 400 mL. Continue IV diuresis at this time. Patient was kept here for observation. Opioid HPI Opioid Management Most Recent Pain and Opioid Data: Last Pain Scale 8 Today, 11:16 Last Pain Intensity 0 24, 08:28 Last Pain Assessment Today, 10:00 Last MAR Pain Assessment Today, 11:16 Last ORT Total Score 0 Today, 09:21 Last ORT Risk Category Low Risk Today, 09:21 Review of Systems ROS Status of ROS 10 or more systems reviewed and unremarkable except as noted in history and below PFSH PFS Medical History Chronic heart failure with preserved ejection fraction (HFpEF) ?I50.32 - Chronic diastolic (congestive) heart failure (ICD-10) Peripheral neuropathy ?G62.9 - Polyneuropathy, unspecified (ICD-10) Peripheral edema ?R60.0 - Localized edema (ICD-10) HTN (hypertension) ?I10 - Essential (primary) hypertension (ICD-10) GERD (gastroesophageal reflux disease) ?K21.9 - Gastro-esophageal reflux disease without esophagitis (ICD-10) Pneumonia due to COVID-19 virus ?U07.1 - COVID-19 (ICD-10) ?J12.82 - Pneumonia due to coronavirus disease 2019 (ICD-10) COVID-19 ?U07.1 - COVID-19 (ICD-10) Obesity ?E66.9 - Obesity, unspecified (ICD-10) Coronary artery disease ?I25.10 - Atherosclerotic heart disease of [place] coronary artery without angina pectoris (ICD-10) Surgical History H/O: hysterectomy ?Z90.710 - Acquired absence of both cervix and uterus (ICD-10) Stented coronary artery ?Z95.5 - Presence of coronary angioplasty implant and graft (ICD-10) Family History Brother Family history of diabetes mellitus Family history of cancer Sister Family history of cancer Social History Within the past year, how often did you have a drink containing alcohol: never Within the past year, how often did you have six or more drinks on one occasion: never Score interpretation: A score less than 3 is consistent with normal alcohol consumption. 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 [email or web address] Known occupational exposures/hazards: No Highest level of school completed/degree received: 11th grade Do you want help with school or training: No Are you now , , , , never or living with a partner: In a typical week, how many times do you talk on the telephone with family, friends, or neighbors: 3 or more times per week How often do you get together with friends or relatives: twice per week How often do you attend yazidi or uatsdin services: 4 or more times per year Do you belong to any clubs or organizations such as yazidi groups unions, fraternal or athletic groups, or school groups: yes Total score: 4 Score interpretation: A score of greater than or equal to 2 indicates the lowest level of social isolation. Little interest or pleasure in doing things: not at all Feeling down, depressed, or hopeless: not at all Feel stressed/tense/nervous/anxious/difficulty sleeping: only a little Due to disability, difficulty making decisions: No Do you think of yourself as: straight/heterosexual Gender Identity: female Meds Home Medications and Allergies Home Medications ?Medication ?Instructions ?Recorded ?Confirmed ?Type alprazolam 0.25 mg tablet 0.25 mg PO BID PRN anxiety 04/11/23 08/14/25 History gabapentin 100 mg capsule 100 mg PO Q12H 04/11/23 08/14/25 History temazepam 15 mg capsule (Restoril) 15 mg PO .hs PRN sleep 04/11/23 08/14/25 History clopidogrel 75 mg tablet 75 mg PO DAILY 07/27/23 08/14/25 History rosuvastatin 40 mg tablet 40 mg PO DAILY 02/18/24 08/14/25 History pantoprazole 40 mg tablet,delayed 40 mg PO .QD 08/10/25 08/14/25 History release umeclidinium 62.5 mcg-vilanterol 1 inh inhalation Q24H 08/10/25 08/14/25 History 25 mcg/actuation powdr for inhalation (Anoro Ellipta) valsartan 80 mg tablet 80 mg PO .QD 08/10/25 08/14/25 History furosemide 40 mg tablet 40 mg PO BID #60 tabs 08/11/25 08/14/25 Rx nifedipine 90 mg tablet,extended 90 mg PO DAILY #30 tabs 08/11/25 08/14/25 Rx release 24 hr Allergies Allergy/AdvReac Type Severity Reaction Status Date / Time azithromycin Allergy Severe Unknown Verified 08/14/25 07:18 amlodipine Allergy Unknown Verified 08/14/25 07:18 doxycycline Allergy Unknown Verified 08/14/25 07:18 duloxetine (From Cymbalta) Allergy Unknown Verified 08/14/25 07:18 ondansetron (From Zofran) Allergy Unknown Verified 08/14/25 07:18 sulfamethoxazole (From Allergy Unknown Verified 08/14/25 07:18 Bactrim) tetanus and diphtheria Allergy Unknown Verified 08/14/25 07:18 toxoids trimethoprim (From Bactrim) Allergy Unknown Verified 08/14/25 07:18 codeine AdvReac Severe Anxiety Verified 08/14/25 07:18 Exam Narrative Exam Narrative: Const General: cooperative HEENT Normal oropharyngeal mucosa without any ulcers or exudates Eyes: Conjunctiva normal Pulmonary Auscultation: Bibasilar crackles, no wheezes Cardiovascular Rate: normal rate Rhythm: regular rhythm Heart Sounds: S1 normal, S2 normal and no murmurs GI Inspection: non-distended Palpation: soft, not firm and nontender. No rigidity or rebound. Deferred Neuro General: alert, awake and oriented x3. No obvious new focal deficit Musculoskeletal: normal range of motion Extrem General: no cyanosis, trace pedal edema Psych Appearance: appropriate affect. Grossly normal. pleasant Constitutional Vital Signs, click to edit/add: Last Vital Signs Temp 97.4 F L 08/14/25 09:21 Pulse 68 08/14/25 11:03 Resp 18 08/14/25 09:21 BP 178/61 H 08/14/25 09:21 Pulse Ox 94 L 08/14/25 11:03 O2 Del Method Nasal Cannula 08/14/25 11:03 O2 Flow Rate 2 08/14/25 11:03 Results Labs Labs: Short CBC 08/14/25 Range/Units 07:41 WBC 6.9 (4.0-11.0) 10^3/uL Hgb 8.2 L (12.0-16.0) g/dL Hct 24.9 L (36.0-48.0) % Plt Count 276 (150-450) 10^3/uL BMP 08/14/25 07:41 Sodium 134 L Potassium 4.2 Chloride 101 Carbon Dioxide 23.9 BUN 32.0 H Creatinine 1.51 H Glucose 108 H Calcium 8.4 L Assessment and Plan Assessment and Plan (1) Acute on chronic diastolic ACC/AHA stage C congestive heart failure: (2) Hypertensive urgency: Plan Acute on chronic diastolic CHF exacerbation Uncontrolled HTN- HTN urgency CKD stage 3 -Most recent Echo reviewed -Started on IV Lasix 40 mg BID here, will transition to oral Lasix on discharge at increased dose -Added one time dose Metolazone to augment diuresis. -Monitor I/Os -Nitro patch as directed -Continue Nifedipine -IV hydralazine while here as needed. -Monitor Kidney function while on Diuretics -Daughter raised concern for hyperkalemia in the past that pt had. K so far WNL. No plan for supplement. -Home meds reviewed and resumed as appropriate -Hb stable so far from previous, no signs of bleeding. Anemia workup as outpatient -Repeat labs in am -Wean off oxygen as tolerated -Will need walk study on discharge DVT ppx: Lovenox Diet: healthy heart, 2 gm sodium restriction, Fluid restriction 1.5 L daily. Discussed with pt, daughters at bedside, all questions answered, they are in agreement and comfortable with discharge plan at this time.
[2025-08-14] MEDS: METOLAZONE 2.5 MG TABLET 5 MG PO (12:50)
--- NOTE | 2025-08-14 15:11 | SWNOTE1 ---
Medicare Outpatient Observation Notice reviewed and discussed with patient. Pt. verbalized understanding and signed the form. Original given to patient and copy placed in patient?s chart.
--- NOTE | 2025-08-14 15:14 | SWNOTE1 ---
SW met with pt to discuss dc needs. Pt lives at home with her . 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 Pt is independent and has no anticipated discharge needs at this time. SW to follow as needed. Pt and daughter in room and they did voice she will have a walk test completed prior to discharge as she is on oxygen here at hospital, but not at home.
[2025-08-14] MEDS: TEMAZEPAM 15 MG CAPSULE PO (21:32)
[2025-08-15] VITALS (22 sets, daily range): BP systolic 146–161; BP diastolic 58–73; PULSE 60–85; TEMP 36.3–36.7; O2SAT 85–97
[2025-08-15] MEDS: IPRATROPIUM/ALBUTEROL SULFATE 3 ML AMPUL.NEB IH ×4 (04:41→20:32)
[2025-08-15] MEDS: PANTOPRAZOLE SODIUM 40 MG TABLET.DR PO (05:51)
[2025-08-15] MEDS: FUROSEMIDE 40 MG/4 ML VIAL IVP ×2 (05:51→17:27)
[2025-08-15 07:01] LABS: Hemoglobin 7.6 g/dL (12.0-16.0); Mean Corpuscular HGB Conc 33.5 g/dL (29.9-35.2); Mean Corpuscular Hemoglobin 29.2 pg (26.7-34.0); Mean Corpuscular Volume 87.3 fL (81.0-99.0); Platelet Count 256 10^3/uL (150-450); Red Blood Count 2.60 10^6/uL (4.20-5.40); White Blood Count 4.8 10^3/uL (4.0-11.0)
[2025-08-15 07:06] LABS: Anion Gap 15.6; Blood Urea Nitrogen 30.0 mg/dL (7.0-18.0); Calcium 8.4 mg/dL (8.5-10.1); Carbon Dioxide 25.5 mmol/L (21.0-32.0); Chloride 99 mmol/L (98-107); Estimated GFR (African America 43 (>=60 mL/min/1.73m^2); Estimated GFR (Non-African Ame 35 (>=60 mL/min/1.73m^2); Glucose 97 mg/dL (74-106); Potassium 4.1 mmol/L (3.5-5.1); Sodium 136 mmol/L (136-145)
[2025-08-15 07:36] LABS: Hematocrit 22.7 % (36.0-48.0)
[2025-08-15] MEDS: ACETAMINOPHEN 325 MG TABLET 650 MG PO ×2 (09:13→18:56)
[2025-08-15] MEDS: LOSARTAN POTASSIUM 50 MG TABLET PO (09:14)
[2025-08-15] MEDS: GABAPENTIN 100 MG CAPSULE PO ×2 (09:14→21:11)
[2025-08-15] MEDS: ALPRAZOLAM 0.25 MG TABLET PO ×2 (09:14→17:45)
[2025-08-15] MEDS: CLOPIDOGREL BISULFATE 75 MG TABLET PO (09:14)
[2025-08-15] MEDS: ENOXAPARIN SODIUM 40 MG/0.4 ML SYRINGE SUBQ (09:15)
[2025-08-15] MEDS: METOLAZONE 2.5 MG TABLET 5 MG PO (11:30)
--- NOTE | 2025-08-15 12:26 | PM.PN ---
Progress Note: Subjective Subjective Interval history: Patient was seen and evaluated at bedside, hemodynamically more stable today, underwent walking test and patient desaturated down to 87% on room air on exertion. Kept here for further IV diuresis. She seems to be responding well to diuresis, improvement in her leg edema and and breathing. Exam Narrative Exam Narrative: Const General: cooperative HEENT Normal oropharyngeal mucosa without any ulcers or exudates Eyes: Conjunctiva normal Pulmonary Auscultation: slightly diminished breath sounds, no crackles, no wheezes Cardiovascular Rate: normal rate Rhythm: regular rhythm Heart Sounds: S1 normal, S2 normal and no murmurs GI Inspection: non-distended Palpation: soft, not firm and nontender. No rigidity or rebound. Deferred Neuro General: alert, awake and oriented x3. No obvious new focal deficit Musculoskeletal: normal range of motion Extrem General: no cyanosis, trace pedal edema Psych Appearance: appropriate affect. Grossly normal Constitutional Vital Signs, click to edit/add: Last Vital Signs Temp 98.1 F 08/15/25 11:31 Pulse 81 08/15/25 11:54 Resp 18 08/15/25 06:57 BP 147/58 H 08/15/25 11:31 Pulse Ox 93 L 08/15/25 11:31 O2 Del Method Nasal Cannula 08/15/25 11:31 O2 Flow Rate 2 08/15/25 11:31 Progress Note: Objective Labs Labs: Short CBC 08/15/25 Range/Units 06:35 WBC 4.8 (4.0-11.0) 10^3/uL Hgb 7.6 L (12.0-16.0) g/dL Hct 22.7 L* (36.0-48.0) % Plt Count 256 (150-450) 10^3/uL BMP 08/15/25 06:35 Sodium 136 Potassium 4.1 Chloride 99 Carbon Dioxide 25.5 BUN 30.0 H Creatinine 1.42 H Glucose 97 Calcium 8.4 L Progress Note: A&P Assessment and Plan (1) Acute on chronic diastolic ACC/AHA stage C congestive heart failure: (2) Hypertensive urgency: Plan Acute hypoxic respiratory failure secondary to acute on chronic diastolic CHF exacerbation Uncontrolled HTN- HTN urgency CKD stage 3 -Most recent Echo reviewed -Started on IV Lasix 40 mg BID here, will transition to oral Lasix on discharge at increased dose -Added one time dose Metolazone to augment diuresis again today -Monitor I/Os -Nitro patch as directed -Continue Nifedipine -IV hydralazine while here as needed. -Monitor Kidney function while on Diuretics -Daughter raised concern for hyperkalemia in the past that pt had. K so far WNL. No plan for supplement. -Home meds reviewed and resumed as appropriate -Hb stable so far from previous, no signs of bleeding. Anemia workup as outpatient -Repeat labs in am -Wean off oxygen as tolerated -Walk study done today and still requires oxygen on exertion, desat to 87% on RA on exertion, kept here for further diuresis as she would not prefer to go home with oxygen. -Will need another walk study upon discharge, possibly tomorrow DVT ppx: Lovenox Diet: healthy heart, 2 gm sodium restriction, Fluid restriction 1.5 L daily. Discussed with patient and daughter at bedside, all questions answered, they are in agreement and comfortable with discharge plan at this time.
[2025-08-15] MEDS: ATORVASTATIN CALCIUM 40 MG TABLET PO (21:12)
[2025-08-15] MEDS: TEMAZEPAM 15 MG CAPSULE PO (21:12)
[2025-08-16] VITALS (13 sets, daily range): BP systolic 137–147; BP diastolic 57–59; PULSE 61–74; TEMP 36.5–36.7; O2SAT 85–96
[2025-08-16] MEDS: IPRATROPIUM/ALBUTEROL SULFATE 3 ML AMPUL.NEB IH ×2 (05:02→10:58)
[2025-08-16 06:40] LABS: Anion Gap 14.1; Blood Urea Nitrogen 30.0 mg/dL (7.0-18.0); Calcium 8.3 mg/dL (8.5-10.1); Carbon Dioxide 27.1 mmol/L (21.0-32.0); Chloride 97 mmol/L (98-107); Estimated GFR (African America 46 (>=60 mL/min/1.73m^2); Estimated GFR (Non-African Ame 38 (>=60 mL/min/1.73m^2); Glucose 93 mg/dL (74-106); Potassium 4.2 mmol/L (3.5-5.1); Sodium 134 mmol/L (136-145)
[2025-08-16] MEDS: ACETAMINOPHEN 325 MG TABLET 650 MG PO (06:55)
[2025-08-16] MEDS: PANTOPRAZOLE SODIUM 40 MG TABLET.DR PO (06:55)
[2025-08-16] MEDS: FUROSEMIDE 40 MG/4 ML VIAL IVP (06:55)
[2025-08-16] MEDS: ALPRAZOLAM 0.25 MG TABLET PO (09:18)
[2025-08-16] MEDS: CLOPIDOGREL BISULFATE 75 MG TABLET PO (09:18)
[2025-08-16] MEDS: LOSARTAN POTASSIUM 50 MG TABLET PO (09:18)
[2025-08-16] MEDS: GABAPENTIN 100 MG CAPSULE PO (09:18)
[2025-08-16] MEDS: ENOXAPARIN SODIUM 40 MG/0.4 ML SYRINGE SUBQ (09:19)
[2025-08-16] MEDS: BUDESONIDE 0.5 MG/2 ML AMPULE NEB IH (11:05)
--- NOTE | 2025-08-16 11:33 | P.DS_ITS ---
DS: Providers Provider Date of admission: 08/14/25 09:05 Primary care physician: Nathan Bateman DO DS: Diagnosis Discharge Diagnosis (1) Acute on chronic diastolic ACC/AHA stage C congestive heart failure: (2) Acute hypoxic respiratory failure: (3) Hypertensive urgency: (4) Suspected sleep apnea: (5) CKD (chronic kidney disease) stage 3, GFR 30-59 ml/min: Plan Acute hypoxic respiratory failure secondary to acute on chronic diastolic CHF exacerbation Hypertensive urgency Suspected sleep apnea Suspected undiagnosed COPD/asthma CKD stage III Normocytic anemia - probably due to renal disease, and iron deficiency anemia as above DS: Summary Hospital Course Hospital Course: Patient is an 84 year old female with medical hx of CAD s/p PCI on Plavix, follows with regional property manager Dr. Perry and her PCP. Patient presented to ER due to worsening SOB. Patient was recently discharged from our facility after was treated for CHF exacerbation with IV diuretics. We switched her Bumex to Lasix upon discharge and increased blood pressure medication nifedipine as well. Patient reports that she gained 2 pounds over the past couple days, she was wheezing overnight and woke up anxious and decided to come to the hospital. Patient reports taking her medications as prescribed. However according to the patient and her daughters, patient was drinking excessive amount of water more than what she is supposed to. states Did not know she was supposed to restrict her water intake . Here in the ER blood pressure slightly elevated, she was given IV Lasix in the ER, chest x-ray showed CHF similar to prior however she is around 91% on room air. Patient was kept initially here for o bservation, however, converted to inpatient since she required further IV diuresis and oxygen supplements. During hospital course, patient was started again on IV Lasix 40 mg twice a day, we did initiate metolazone to augment diuresis which patient received while here with improvement in her urine output. Blood pressure became better controlled. Kidney function was monitored on daily basis to ensure stable CKD while on diuretics. Patient underwent walk test yesterday however she did require 2 L nasal cannula due to desaturation to 85% on room air. Patient was kept here for further diuresis however another walk test done today which showed that patient also requiring 2 L nasal cannula due to desaturation down to 85% as well on exertion. I discussed with patient and daughter at length at bedside, patient expressed her wishes to go home today even with oxygen supplements. We discussed maintaining diuretics of Lasix at increased dose of 80 mg twice daily and keep metolazone daily as needed in case of increasing leg swelling/weight gain to keep the fluid balance and avoid dehydration or overdiuresis as it could happen while taking diuretics. We also discussed the possibility of patient having COPD as was suspected by primary care and patient has been placed on Anoro Ellipta. She has been taking it for over a month or so. Patient would wake up overnight wheezes with shortness of breath. She has been recommended to do PFT and sleep study however she has been putting this off. We did have a long conversation with patient and her daughter at bedside and encouraged her to go ahead and get those testing done as outpatient as well as she gets discharged from here and follows with her PCP to get pulmonary function test and sleep study to establish a diagnosis so she can be treated appropriately accordingly. We did discuss to add inhaled steroids to her LABA LAMA therapy, patient seems amenable to this plan. Advised to rinse her mouth after use to avoid oral thrush with inhaled steroids. Sent prescription for Symbicort. Patient reports that she and they have been having dust and mold at the house and this problem is taking care of. We discussed the risks and consequences of untreated COPD/asthma/sleep apnea. Patient verbalized understanding to this plan. Advised to follow-up with PCP postdischarge as well as cardiology clinic for heart failure management. Arrangements is being made for home oxygen and delivery. Discussed with patient regarding compliance with medications and follow-ups as outpatient. All question answered. Patient in agreement and comfortable with discharge plan at this time. Patient has multiple complex medical issues as listed above and others that are not listed. All appear to be stable at this time. Patient is feeling significantly better and feeling comfortable with this plan of discharge. I do not have any clear or strong clinical justification to extend inpatient hospitalization. Patient however will require close and the frequent monitoring as well as additional work-up, investigation and therapeutic intervention that could take place from this point on post discharge. That is to prevent relapse, decompensation, rehospitalization and other medical implications. Outpatient follow up as directed for continuity of care. Verbal and written discharge instructions will be provided to the patient. I may not have addressed or treated all of your medical illnesses or the abnormal blood work or imaging studies during this hospitalization. Please ask your primary care provider to obtain [facility] records entirely to follow up on all of the abnormal physical, laboratory, and imaging findings that I have not addressed. Please return back to the emergency room or seek medical attention if your symptoms worsen or return. Discharging you from [facility] does not mean that your medical care ends here and now. You may still need additional monitoring, work up, investigation, and treatment plan to be handled from this point on by out patient providers including your primary care provider and specialists. Time Spent with Patient Time attestation: Total time spent providing and/or coordinating discharge services: Time spent: greater than 30 minutes Exam Narrative Exam Narrative: Const General: cooperative HEENT Normal oropharyngeal mucosa without any ulcers or exudates Eyes: Conjunctiva normal Pulmonary Auscultation: Diminished breath sounds, no crackles, no wheezes Cardiovascular Rate: normal rate Rhythm: regular rhythm Heart Sounds: S1 normal, S2 normal and no murmurs GI Inspection: non-distended Palpation: soft, not firm and nontender. No rigidity or rebound. Deferred Neuro General: alert, awake and oriented x3. No obvious new focal deficit Musculoskeletal: normal range of motion Extrem General: no cyanosis, no pedal edema Psych Appearance: appropriate affect. Grossly normal Constitutional Vital Signs, click to edit/add: Last Vital Signs Temp 98.0 F 08/16/25 08:35 Pulse 67 08/16/25 10:00 Resp 18 08/16/25 05:02 BP 147/57 H 08/16/25 08:35 Pulse Ox 92 L 08/16/25 10:59 O2 Del Method Nasal Cannula 08/16/25 10:59 O2 Flow Rate 1 08/16/25 08:35 DS: Data Data Completed and Pending Labs on day of discharge: Labs from last 24 hours 08/16/25 05:54 Sodium 134 L Potassium 4.2 Chloride 97 L Carbon Dioxide 27.1 Anion Gap 14.1 BUN 30.0 H Creatinine 1.33 H Est GFR ( Amer) 46 L Est GFR (Non-Af Amer) 38 L BUN/Creatinine Ratio 22.6 Glucose 93 Calcium 8.3 L Discharge Plan Discharge Disposition: Home, Self-Care Condition: Good Plan of Treatment: Medications: -Will increase furosemide (Lasix) to 80 mg twice daily. -Will add Metolazone 5 mg daily as needed for leg swelling/weight gain -Will start Symbicort inhaler (steroid inhaler) twice daily. Make sure to rinse your mouth with water after use -Continue home oxygen, ensure to wear it at night time as well -Use rescue inhaler as needed for wheezes/worsening SOB. Follow ups: -Ensure follow up with your PCP to discuss pulmonary function test and sleep study to establish diagnosis of COPD/Asthma, assess for sleep apnea -Follow up with PCP for walk study to assess need for oxygen as outpatient -Follow with cardiology office as soon as you can If you continue to have shortness of breath despite all inhalers, medications, or your oxygen saturation drops below 88% without recovery despite oxygen use, return to ER for further evaluation . Discharge Medications: New furosemide [Lasix] 80 mg tablet 80 mg PO BID Qty: 30 0RF metolazone 5 mg tablet 5 mg PO DAILY PRN (Reason: leg swelling/weight gain) Qty: 30 0RF budesonide-formoterol [Symbicort] 160-4.5 mcg/actuation HFA aerosol inhaler 2 inh inhalation BID Qty: 10.2 0RF Continued rosuvastatin 40 mg tablet 40 mg PO DAILY alprazolam 0.25 mg tablet 0.25 mg PO BID PRN (Reason: anxiety) gabapentin 100 mg capsule 100 mg PO Q12H Patient Comments: can take in the afternoon if needed temazepam [Restoril] 15 mg capsule 15 mg PO .hs PRN (Reason: sleep) clopidogrel 75 mg tablet 75 mg PO DAILY valsartan 80 mg tablet 80 mg PO .QD pantoprazole 40 mg tablet,delayed release (DR/EC) 40 mg PO .QD umeclidinium-vilanterol [Anoro Ellipta] 62.5-25 mcg/actuation blister with device 1 inh INHALATION Q24H nifedipine 90 mg tablet extended release 24hr 90 mg PO DAILY Qty: 30 0RF Discontinued furosemide 40 mg tablet 40 mg PO BID Qty: 60 0RF Print Language: [place] Citizen Patient Instructions: Heart Failure (DC), Sleep Apnea (GEN), Heart Healthy Diet (DC), COPD (Chronic Obstructive Pulmonary Disease) (DC), Sleep Study (GEN) Forms: Portal Instructions
--- OUTSIDE RECORDS SUMMARY | 2025-08-18 06:28 | XMS_ITS | CCD ---
Author Organization [facility] CliniSyoh Care Team Providers Care Architecture Department Chair [...] ABRAMES, EDWARD Ochoa Consulting Unavailable BALL, DR EVANS Attending Unavailable [...] Care Unavailable DO Jonna Perry Attending Provider [phone] DO Nathan Hathaway Primary Care Provider [phone] Nathan Hathaway Unavailable [place], Dr. Edinson Hinojosa Attending Darleneva jen Hathaway, Dr. Nathan Maxwell Primary Care Ericka Perry, Dr. Edinson Hinojosa Attending Aura Perry, Dr. Edinson Hinojosa Referring Aura Hathaway, Dr. Nathan Maxwell Primary Care Unavai lable Ch, DO Fernando Emergency Provider DO Lj Ryan Admit Provider Connor, DO Lj Wagoner Attending Provider [phone] Fransico REILLY, Nathan Whitlock Primary Care Provider Fransico REILLY, Nathan Whitlock Primary Care Provider Ball, DO Evans Primary Care Provider THONY Rosado Attending Provider Fransico DO, Nathan Whitlock Primary Care Provider Nathan Hathaway MD Unavailable Fransico REILLY, Nathan Primary Care Provider [phone] Fransico REILLY, Nathan Attending Provider Nathan Hathaway [...] KeJorge L whyte DO Emergency Provider HOLDEN RSOADO Attending Unavailable EDINSON PERRY Referring Unavailable BALLNATHAN [...] Care Provider Fransico REILLY, Nathan Attending Provider [phone] Nathan Hathaway DO Primary Care Provider [phone] Fransico REILLY, Nathan Attending Provider [phone] BALL, NATHAN E Primary Care Unavailable SONJA PAOLO Attending Unavailable BALL, NATHAN E Primary Care Unavailable BALL, NATHAN E Referring Unavailable BALL, NATHAN E Primary Care Unavailable BALL, NATHAN E Referring Unavailable BALL, NATHAN E Primary Care Unavailable BALL, NATHAN E Referring Unavailable Fanny Bedoya APRN Attending Provider Valentin Leonard MD, V Attending Provider [phone] Shelbi CASTRO-C, Kaia Campos Attending Provider [phone] Allergies Allergy ClassificationReported Allergen(s)Allergy TypeDate of OnsetReaction(s) Facility (20 sources)amLODIPine; Translations: [AMLODIPINE]Drug Kxexocs59-40-0386Vdnvhsb [facility] (12 sources)Codeine / guaiFENesin; Translations: [CODEINE-GUAIFENESIN]Drug Zuorave73-49-7199VgwvkagKuxggffkd Clinic (12 sources)Doxycycline; Translations: [DOXYCYCLINE HYCLATE]Drug Allergy 21-86-1901HfwfaekTnjmgloxm Clinic (20 sources)DULoxetine; Translations: [DULOXETINE]Drug Xtbqarw54-38-6279Baoyhoo [facility] (20 sources)levoFLOXacin; Translations: [LEVOFLOXACIN]Drug Gvansox68-05-0028 [facility] (20 sources)Ondansetron; Translations: [ONDANSETRON]Drug Prtfifm27-86-0550 [facility] CenterComment on above:Onset Date: 10/29/2019 (20 sources)Penicillins; Translations: [PENICILLINS]Propensity to adverse reactions to quay81-72-9173EflqvaiLibdhptzu Clinic (20 sources)Sulfamethoxazole / Trimethoprim; Translations: [Bactrim]Drug Allergy 66-06-1676FclqbeiH[facility] (8 sources)Tetracycline (class of antibiotic); Translations: [TETRACYCLINES] Propensity to adverse reactions to dcnu40-70-4425HtmufpnPomexsvev Clinic (12 sources)Iodine And Iodide Containing Products; Translations: [IODINE AND IODIDE CONTAINING PRODUCTS]Drug Aicpvbu71-59-9563HzczjrjGexysyyve Clinic (20 sources)Tetanus And Diphtheria Toxoids; Translations: [TETANUS AND DIPHTHERIA TOXOIDS]Propensity to adverse reactions to aabm71-59-3029Bdfdjow [facility] (20 sources)AmoxicillinDrug Idazejq93-64-5377Htaekoi, Unknown [facility] (20 sources)Codeine / guaiFENesinDrug AllergyLandmark Medical Center cheerapp Other (20 sources)DoxycyclineDrug Vhoscbs28-37-1700Omsxhcv, Unknown [facility] (20 sources)levoFLOXacinDrug AllergyLandmark Medical Center cheerapp Other (20 sources)Ondansetron; Translations: [Zofran]Drug Xjrmrps13-48-7667JzqjcmsWavSt. Anthony's Hospital Repository (20 sources)Tetanus-Diphtheria Toxoids TdDrug allergyLandmark Medical Center cheerapp Other (20 sources)AllopurinolDrug Dtqcbvv95-62-9152TsrmvlsVnhSt. Anthony's Hospital Repository (1 source)amLODIPineDrug Eveihgo13-12-7144TgrSalem City [facility] (1 source)DoxycyclineDrug AllergySalem City Hospital Repository (1 source)DULoxetineDrug Tyrqiqk75-15-5922FfxSalem City Hospital Repository (1 source)Iodine (And Iodine Containting Drugs)Drug allergy (disorder)01-19-2021 [facility] Repository (1 source)Sulfamethoxazole / TrimethoprimDrug Ouwsrzg63-31-2655XteSalem City Hospital Repository (9 sources)Sulfonamides (Antibiotic); Translations: [SULFA (SULFONAMIDE ANTIBIOTICS)]Allergy to iifgsvxrk25-91-9145Semn, [facility] (16 sources)SulfamethoxazoleDrug Ehbflrt18-50-7050VjvpuiiDayton Children's Hospital (8 sources)Trimethoprim; Translations: [TRIMETHOPRIM]Drug Brbhotg87-23-1710 [facility] (20 sources)Pseudoephedrine; Translations: [PSEUDOEPHEDRINE]Drug Allergy 17-11-4070QixfcekEovkp [place] cheerapp Other (20 sources)TetracyclineDrug AllergyLandmark Medical Center cheerapp Other (20 sources)Cheratussin AC *COUGH/COLD/ALLERGY*Propensity to adverse reactions 28-33-6508NbzleixVymqj [place] [facility] Other (20 sources)Zofran *ANTIEMETICS*Propensity to adverse crgbpgjte43-67-1749Iqhsaqf [place] cheer[facility] Other (5 sources)amLODIPineDrug AllergyLandmark Medical Center cheerapp Other (20 sources)Azithromycin; Translations: [AZITHROMYCIN]Drug Keecnww62-07-2833 rash, [facility]ellingSelect [facility] (20 sources)CodeineDrug Qoaejzw46-21-3031Ahekecj ReactionSelect Medical Trihealth Rehabilitation Hospital (15 sources)guaiFENesinDrug Xkesxrt28-41-9783FzhoeeyCleveland Clinic [facility] (15 sources)12 Hour DecongestantAllergy to ibptcrcpt59-17-8883Yqthpzi Reaction [facility] HospitalComment on above:Onset Date: 10/29/2019 (15 sources)Cheratussin AC *COUGH/COLD/ALLAllergy to jzhaslfjt20-39-0407Npfiknn [facility] HospitalComment on above:Free Text Allergy: Cheratussin AC *COUGH/COLD/ALLERGY*; Onset Date: 10/29/2019 (8 sources)PenicillinsDrug Nydocpfetmz28-57-0636[facility] (4 sources)PenicillinsPropensity to adverse reactions to jyug06-07-1869VjpstmkLicking [facility] Hospital (4 sources)TetracyclinesPropensity to adverse reactions to wqmo12-38-5516EqmugbwLicking Memorial Hospital (1 source)Allopurinol; Translations: [ALLOPURINOL]Drug Ibynuag06-28-4863 [facility] Repository Medications Current Medications MedicationDrug Class(es)DatesSig (Normalized)Sig (Original)AeroChamber Mini Chamber - (5 sources)Start: 62-81-0498IhzgDzmslzq Mini Chamber - Use with MDI every 6 hours as needed inhaled every 6 hours as needed for30 days Mar, Active odi039303 200 actuat albuterol 0.09 mg/actuat metered dose inhaler (20 sources)beta2-Adrenergic AgonistStart: 83-65-1123chlevghnj HFA 90 mcg/act inhaler 01/31/2024 ActiveStart: 71-53-3803xbfygumuz HFA 90 mcg/act inhaler Every 6 hours 01/31/2024 ActiveStart: 01-31-2024 End: 92-41-5708dioo 1 puff(s) by inhalation every six hours as needed for wheezingAlbuterol Sulfate 90 mcg/actuation HFA aerosol inhaler Active 2 PUFF INHALATION Every 6 hours as needed for shortness of breath or wheezing 8.5 November 26, 2024 10:19am Complies with drug therapyStart: 80-39-2837yclq 2 puff(s) by inhalation every six hours as needed for coughAlbuterol Sulfate HFA 108 (90 Base) MCG/ACT 2 puff Inhalation every 6 hours as needed for cough, SOB Mar, ActiveStart: 01-54-7717gqgb 2 puff(s) by inhalation every six hours as needed for coughAlbuterol Sulfate HFA 108 (90 Base) MCG/ACT 2 puff Inhalation every 6 hours as needed for cough, SOB Mar, ActiveStart: 56-62-5982tduw 2 puff(s) by inhalation every six hours as needed for cough Albuterol Sulfate HFA 108 (90 Base) MCG/ACT 2 puff Inhalation every 6 hours as needed for cough, SOB Mar, ActiveStart: 60-81-9481eftd 2 puff(s) by inhalation every four hours as needed for coughAlbuterol Sulfate HFA 108 (90 Base) MCG/ACT 2 puffs as needed Inhalation every 4 hrs for As needed for cough or wheeze February, Not-Takingazithromycin 250 mg oral tablet (10 sources)Macrolide AntimicrobialStart: 71-51-1656Ylxlodhxfgbl 250 MG as directed Orally daily for 5 days Aug, ActiveStart: 04-26-2023 Azithromycin 250 MG as directed Orally daily for 5 days Mar, Akhftc88 actuat budesonide 0.16 mg/actuat / formoterol fumarate 0.0045 mg/actuat metered dose inhaler (20 sources)Corticosteroid, beta2-Adrenergic AgonistStart: 91-46-4274dbnb 2 puff(s) by inhalation every twelve hoursSymbicort 160-4.5 mcg/actuation inhaler Inhale 2 puffs every 12 hours. 12/31/2024 ActiveStart: 12-29-2024 End: 15-79-9593lgtz 1 puff(s) by inhalation every twelve hoursBudesonide- Formoterol 160-4.5 mcg/actuation HFA aerosol inhaler Discontinued 2 PUFF INHALATION Every 12 hours 30.6 December 31, 2024 10:25am February 12, 2025 7:98bx385 actuat budesonide 0.16 mg/actuat / formoterol fumarate 0.0048 mg/actuat / glycopyrrolate 0.009 mg/actuat metered dose inhaler (1 source)Corticosteroid, beta2-Adrenergic AgonistStart: 50-26-6147zzwd 2 puff(s) by inhalation twice dailyBreztri Aerosphere 160-9-4.8 MCG/ACT 2 puffs Inhalation Twice a day Sample Apr, Activebumetanide 1 mg oral tablet (7 sources)Loop DiureticStart: 98-42-7834nddj 1 tablet by mouth twice daily Bumetanide 1 mg tablet Active 1 MG PO Twice daily 60 July 06, 2025 6:16pm Complies with drug therapyStart: 06-19-2025 End: 05-56-6198ptno 1 tablet by mouth twice dailyBumetanide 0.5 mg tablet Discontinued 0.5 MG PO Twice daily 60 July 03, 2025 12:14pm July 06, 2025 6:18pmclopidogrel 75 mg oral tablet (20 sources)P2Y12 Platelet InhibitorStart: 41-34-3567kqdi 1 tablet by mouth once dailyClopidogrel 75 mg tablet Active 0 .ROUTE .COMPLEX July 07, 2025 7:34am TAKE 1 TABLET BY MOUTH DAILY Complies with drug therapyStart: 05-09-2023 End: 83-93-3718mtxe 1 tablet by mouth once dailyClopidogrel 75 mg tablet Discontinued 75 MG PO Daily May 17, 2023 12:00am June 16, 2024 11:42am Start: 05-09-2023 End: 47-26-2849eqgamdrlrth (PLAVIX) 75 mg tablet TAKE 8 TABLETS BY MOUTH ON DAY ONE THEN TAKE 1 TABLET BY MOUTH DAILY 05/09/2023 ActiveComment on above:TAKE 8 TABLETS BY MOUTH ON DAY ONE THEN TAKE 1 TABLET BY MOUTH DAILYcodeine phosphate 2 mg/ml / guaiFENesin 20 mg/ml oral solution (6 sources)Opioid AgonistStart: 70-20-8228bdme 10 mL by mouth four times daily as needed for coughguaiFENesin-Codeine 100-10 MG/5ML 10 mL as needed Orally qid as needed for cough for 7 days Activeenteric contrast (will be provided with radiology test) (1 source)Start: 05-29-2022 End: 90-43-0868wfjnjzf contrast (will be provided with radiology test) For CT CHESTABD/PEL W IVCON Routine order Administer, As Directed One Time Only, via Oral, Rectal, both Oral and Rectal, Enteric Tube, Stoma orIndwelling Catheter, Enteric Contrast as designated per enteric contrast guidelines 1 Each 0 022 05/30/2022 ActiveComment on above:For CT CHESTABD/PEL W IVCON Routine order Administer, As Directed One Time Only, via Oral, Rectal, both Oral and Rectal, Enteric Tube, Stoma or Indwelling Catheter, Enteric Contrast as designated per enteric contrast guidelinesFluticasone-Salmeterol 115-21 MCG/ACT (16 sources)Start: 57-20-6576lnxm 2 puff(s) by inhalation twice daily Fluticasone-Salmeterol 115-21 MCG/ACT 2 puffs Inhalation Twice a day Apr, ActiveStart: 63-02-6580cbiu 2 puff(s) by inhalation twice dailyFluticasone- Salmeterol 115-21 MCG/ACT 2 puffs Inhalation Twice a day for 30 days Apr, Activegabapentin 100 mg oral capsule (20 sources)Anti-epileptic AgentStart: 08-15-2024 End: 91-37-0486yzfv 1 capsule by mouth twice dailyGabapentin 100 mg capsule Active 0 .ROUTE .COMPLEX 180 July 07, 2025 7:34am TAKE 1 CAPSULE BYMOUTH TWICE DAILY Complies with drug therapyStart: 03-08-2023 End: 71-22-9273xwli 1 capsule by mouth three times dailyGabapentin 100 mg capsule Discontinued 100 MG PO Twice daily March 08, 2023 12:00am August 15, 2024 9:28am may take tid if neededtake 100 mg by mouth twice dailyGABAPENTIN ORAL Take 100 mg by mouth twice daily. Activetake 1 capsule by mouth every twenty-four hoursGabapentin 100 MG 1 capsule Orally Once a day ActiveComment on above:Take 100 mg by mouth twice daily.iv contrast (will be provided with radiology test) (1 source)Start: 05-29-2022 End: 54-30-2844dz contrast (will be provided with radiology test) CT Chest ABD/PEL-Inject, intravenously, once for1 dose.No IV access, insert saline lock prior to the beginning of sedation, infusion, injection of imaging exam. Discontinue saline lock post exam. If Pt. has a central line or IVAD, may access for administration according to line specific nursing protocol. Once exam is complete flush line and de-access according to line specific nursing protocol in the CT contrast administration guidelines link.1 Each 0 05/29/2022 05/30/2022 ActiveComment on above:CT Chest ABD/PEL-Inject, intravenously, once for 1 dose.No IV access, insert saline lock prior to the beginning of sedation, infusion, injection of imaging exam. Discontinue saline lock post exam. IfPt. has a central line or IVAD, may access for administration according to line specific nursing protocol. Once exam is complete flush line and de-access according to line specific nursing protocol in the CT contrast administration guidelines link.nitrofurantoin, macrocrystals 25 mg / nitrofurantoin, monohydrate 75 mg oral capsule (11 sources)Nitrofuran AntibacterialStart: 72-32-5618izbp 1 capsule by mouth every twelve hoursNitrofurantoin Monohyd Macro 100 MG 1 capsule with food Orally every 12 hrs for 5 days Jun,ctivepantoprazole 40 mg delayed release oral tablet (20 sources)Proton Pump InhibitorStart: 47-91-3767riqf 1 tablet by mouth once daily at breakfastPantoprazole 40 mg tablet,delayed release (DR/EC) Active 0 .ROUTE .COMPLEX 90 November 18, 2024 8:28am TAKE 1 TABLET BY MOUTH DAILY ON AN EMPTY STOMACH FOLLOWED IN 1/2 HOUR BY BREAKFAST Complies with drug therapyStart: 07-05-2021 End: 39-58-5607zyrm 1 tablet by mouth once daily in the morningPantoprazole 40 mg tablet,delayed release (DR/EC) Discontinued 40 MG PO Every morning March 08, 2023 12:00am November 18, 2024 8:28amPantoprazole Sodium 40 MG Oral Packet Take 1 tablet by mouth on a empty stomach Quantity: 0 Refills: 0 Ordered: 07-Mar-2023 DO ActivePantoprazole Sodium Not-Takingpotassium chloride 10 meq extended release oral tablet (20 sources)Start: 28-16-6860bldw 1 tablet by mouth twice dailypotassium chloride (K-TAB) 10 mEq tablet Take 10 mEq by mouth two times a day. 04/26/2023 ActiveStart: 26-87-7323tgla 1 tablet by mouth once dailyPotassium Chloride 10 mEq tablet extended release Active 10 MEQ PO Daily February 12, 2025 12:00am Co mplies with drug therapyStart: 03-08-2023 End: 45-69-9698Yjilwheag Chloride 10 mEq tablet extended release Discontinued 10 MEQ PO EVERY 3 WEEKS March 08, 2023 12:00am April 22, 2024 1:22pm 3 times a week on even daystake 1 tablet by mouth at mealtime, then take 1 tablet by mouth once dailyK-Tab 10 MEQ 1 tablet with food Orally 1 -2 tabs daily with furosemide for 90 days Activetake 1 tablet by mouth every other day at mealtime K-Tab 10 MEQ 1 tablet with food Orally qod for 90 days Activetake 1 tablet by mouth once dailyPotassium Chloride Iram ER 10 MEQ Oral Tablet Extended Release TAKE 1 TABLET DAILY. Quantity: 90 Refills: 3 Ordered: 07-Mar-2023 DO Active rosuvastatin calcium 40 mg oral tablet (20 sources)HMG-CoA Reductase InhibitorStart: 07-55-0217cgqv 1 tablet by mouth once dailyRosuvastatin 40 mg tablet Active 0 .ROUTE .COMPLEX November 18, 2024 8:24am TAKE 1 TABLET BY MOUTH DAILY Complies with drug therapyStart: 55-77-5843vxdp 1 tablet by mouth once dailyRosuvastatin 40 mg tablet Active 0 .ROUTE .COMPLEX November 18, 2024 8:24am TAKE 1 TABLET BY MOUTH DAILYStart: 02-02-2024 End: 03-26-0701eygw 1 tablet by mouth once dailyRosuvastatin 40 mg tablet Discontinued 40 MG PO Daily 30 February 06, 2024 12:11pm November 18, 2024 8:24amtriamcinolone acetonide 5 mg/ml topical cream (20 sources)CorticosteroidStart: 46-77-9481bnlfxerueyzos (Kenalog) 0.5 % cream 01/31/2024 ActiveStart: 60-58-6003aznuapcqpoomk (Kenalog) 0.5 % cream Twice daily 01/31/2024 ActiveStart: 01-31-2024 End: 93-17-9303Pauphnaaleoxs Acetonide 0.5 % cream Discontinued 1 APPLIC TOPICAL Twice daily January 31, 2024 12:00am February 12, 2025 6:39amStart: 01-31-2024 End: 36-57-8374Evqxnvekxxlcp Acetonide 0.1 % paste Discontinued 1 APPLIC DENTAL January 31, 2024 12:00am February 12, 2025 6:39am 1 application do not rinse afterwards and avoid eating or drinking for 30 minutes Mouth/Throat Twice a day Start: 03-93-0192Jobjjmaelshjk Acetonide 0.1 % 1 application do not rinse afterwards and avoid eating or drinking for 30 minutes Mouth/Throat Twice a day for 7 days Jul, ActiveStart: 89-05-6013Iqownwdtkbaeb Acetonide 0.5 % 1 application Externally Two times a day for 14 days Mar, ActiveStart: 42-57-2535Asqnjighvyuvm Acetonide 0.5 % 1 application Externally Two times a day for 14 days Mar, ActiveUmeclidinium-Vilanterol (20 sources)Anticholinergic, beta2-Adrenergic AgonistStart: 82-45-8735Zbvrw: 31-72-9574Tuniunbvuubo-Vilanterol (Anoro Ellipta) 62.5-25 mcg/actuation blister with device Active 1 INH INHALATION Daily 180 90 May 19, 2025 3:59pm Complies with drug therapyStart: 05-15-2025 End: 31-06-6643Ivryoguibisk-Vilanterol (Anoro Ellipta) 62.5-25 mcg/actuation blister with device Discontinued 1 INH INHALATION Daily 180 90 May 15, 2025 11:55am May 19, 2025 4:04pmStart: 03-19-2025 End: 64-42-2394Hrtsviiaxyln-Vilanterol (Anoro Ellipta) 62.5-25 mcg/actuation blister with device Discontinued 1 INH INHALATION Daily 180 90 March 19, 2025 11:38am May 15, 2025 11:55amStart: 03-19-2025 End: 14-26-2034Nxdidvnvfzpn-Vilanterol (Anoro Ellipta) 62.5-25 mcg/actuation blister with device Discontinued 1 INH INHALATION Daily 60 30 March 19, 2025 11:37am March 19, 2025 11:46amStart: 03-13-2025 End: 17-06-3477Omnzfvrpsvoe-Vilanterol (Anoro Ellipta) 62.5-25 mcg/actuation blister with device Discontinued 1 INH INHALATION Daily 60 March 13, 2025 9:43am March 13, 2025 1:43pmStart: 13-55-3312Guhua Ellipta 62.5-25 MCG/ACT aerosol powder USE 1 INHALATION BY MOUTH DAILY 02/12/2025 ActiveStart: 02-12-2025 End: 52-60-3595Uiyuxqsegmlo-Vilanterol (Anoro Ellipta) 62.5-25 mcg/actuation blister with device Discontinued 1 INH INHALATION Daily 60 30 February 12, 2025 12:00am March 13, 2025 1:20pmUmeclidinium-Vilanterol (Anoro Ellipta) 62.5-25 mcg/actuation blister with device (1 source)Start: 52-14-2931Uwirkcjtgdrb-Vilanterol (Anoro Ellipta) 62.5-25 mcg/actuation blister with device Active 1 INH INHALATION Daily 180 90 March 19, 2025 11:38amvalsartan 80 mg oral tablet (17 sources)Angiotensin 2 Receptor BlockerStart: 10-08-2024 End: 76-56-5319xxna 1 tablet by mouth once dailyValsartan 80 mg tablet Active 80 MG PO Daily 90 90 June 19, 2025 3:16pm Complies with drug therapy{20 (nirmatrelvir 150 MG Oral Tablet) / 10 (ritonavir 100 MG Oral Tablet) } Pack [Paxlovid 5-Day] (9 sources)Start: 27-96-7437yahb 3 tablets by mouth every twelve hoursPaxlovid (300/100) 20 x 150 MG & 10 x 100MG 3 tablets Orally Twice a day for 5 days Jun, Active Completed/Discontinued Medications MedicationDrug Class(es)DatesSig (Normalized)Sig (Original)ALPRAZolam 0.25 mg oral tablet (20 sources)BenzodiazepineStart: 09-11-2024 End: 85-63-2578dnan 1 tablet by mouth twice dailyAlprazolam 0.25 mg tablet Discontinued 0.25 MG PO Twice daily 180 90 January 29, 2025 10:19pm February 12, 2025 7:05amStart: 01-31-2024 End: 18-53-4618taxo 1 tablet by mouth every eight hours as needed for anxiety Alprazolam 0.25 mg tablet Discontinued 0.25 MG PO .q8hrs as needed for Anxiety January 31, 2024 10:33am September 11, 2024 3:20pmStart: 76-17-7321pbld 1 tablet by mouth every eight hours as needed for anxietyALPRAZolam 0.25 MG TAKE 1 TABLET BY MOUTH EVERY 8 HOURS NEEDED FOR ANXIETY for 90 February, ActiveStart: 03-08-2023 End: 56-28-1042uuyi 1 tablet by mouth three times daily as needed for anxiety Alprazolam 0.25 mg tablet Discontinued 0.25 MG PO Three times daily as needed for Anxiety February 12:00am January 31, 2024 10:39amALPRAZolam (Niravam) 0.25 mg disintegrating tablet Dissolve 1 tablet (0.25 mg) in the mouth as needed at bedtime for anxiety. Activetake 1 tablet by mouth every twelve hours ALPRAZolam 0.25 MG 1 tablet Orally Twice a day ActiveComment on above:Take 0.25 mg by mouth three times daily as needed.ascorbic acid 500 mg oral tablet (17 sources)Vitamin CStart: 03-08-2023 End: 95-59-1293vfee 1 tablet by mouth once dailyAscorbic Acid (Vitamin C) (Vitamin C) 500 mg Tablet Discontinued 500 MG PO Daily March 08, 2023 12:00am May 17, 2023 10:50amaspirin 81 mg oral tablet (20 sources)Platelet Aggregation Inhibitor, Nonsteroidal Anti-inflammatory Drug Start: 04-18-2023 End: 80-40-7266sgxi 1 capsule by mouth once dailyAspirin 81 mg capsule Discontinued 81 MG PO Daily February 12, 2025 12:00am March 19, 2025 11:46am Start: 03-07-2023 End: 59-55-6907uusk 1 tablet by mouth once daily in the morningAspirin 81 mg tablet,delayed release (DR/EC) Discontinued 81 MG PO Every morning February 27, 2024 10:00am December 16, 2024 11:47am every Mon, Wed, and FriComment on above:Take by mouth.benazepril (20 sources)Angiotensin Converting Enzyme InhibitorBenazepril HCl Not-Taking benzonatate 100 mg oral capsule (20 sources)Non-narcotic AntitussiveStart: 15-60-9874cauk 1 capsule by mouth every eight hoursBenzonatate 100 MG 1 capsule as needed Orally Three times a day for As needed for cough or wheeze February, Not-TakingbusPIRone (20 sources)busPIRone HCl Not-TakingCalcium Carbonate (9 sources) End: 96-16-5713mifqnrj carbonate (CALCIUM 600 ORAL) Take by mouth. 07/08/2025 Discontinued (Discontinued by another Health Care Provider)calcium carbonate (CALCIUM 600 ORAL) Take by mouth. Activecalcium carbonate (CALCIUM 600 ORAL) Take by mouth. 0 ActiveComment on above:Take by mouth.calcium carbonate 1500 mg / cholecalciferol 0.01 mg oral tablet (17 sources)Vitamin DStart: 03-08-2023 End: 73-35-0872vbjk 1 tablet by mouth once dailyCalcium Carbonate-Vitamin D3 (Calcium 600 + D(3)) 600 mg-10 mcg (400 unit) Tablet Discontinued 1 TAB PO Daily March 08, 2023 12:00am May 17, 2023 10:50amcarvedilol 3.125 mg oral tablet (20 sources)alpha-Adrenergic Humaira, beta-Adrenergic BlockerStart: 04-20-2024 End: 09-56-5402ooivzobzvb (Coreg) 3.125 MG tablet 04/20/2024 11/25/2024 Discontinued (Therapy completed)Start: 02-11-2024 End: 40-71-9835kalt 1 tablet by mouth twice daily at mealtimeCarvedilol 3.125 mg tablet Discontinued 0 .ROUTE .COMPLEX 180 February 11, 2024 7:04am February 25 10:53am TAKE 1 TABLET BY MOUTH TWICE DAILY WITH FOODStart: 05-18-2023 End: 55-21-5461Iynmoyjwcr 3.125 mg tablet Discontinued 12.5 MG PO Twice daily May 18, 2023 11:38am May 18, 2023 2:48pm Please do not take if you are feeling lightheaded or have a blood pressure less than 120 systolic at home Start: 05-18-2023 End: 49-12-0122Wcputvyebg Discontinued 12.5 MG PO Twice daily May 18, 2023 11:38am May 18, 2023 2:48pm Please do not take if you are feeling lightheaded or have a blood pressure less than 120 systolic at homeStart: 05-18-2023 End: 23-72-4389immt 1 tablet by mouth twice daily at mealtimeCarvedilol (Coreg) 12.5 mg tablet Discontinued 12.5 MG PO Twice daily May 18, 2023 12:00am January 31, 2024 10:34am must administer with a meal/foodStart: 02-14-2023 End: 55-35-1697fnge 1 tablet by mouth twice dailyCarvedilol 3.125 mg tablet Discontinued 3.125 MG PO Twice daily January 31, 2024 12:00am January 7:04amComment on above:TAKE 1 TABLET BY MOUTH TWICE A DAY WITH FOOD/MEALcefdinir 300 mg oral capsule (18 sources)Cephalosporin AntibacterialStart: 05-19-2025 End: 68-54-9680dalu 1 capsule by mouth twice dailyCefdinir 300 mg capsule Discontinued 300 MG PO Twice daily 10 May 19, 2025 12:00am June 19, 2025 9:32amStart: 02-13-2024 End: 96-72-6916auwp 1 capsule by mouth twice dailyCefdinir 300 mg capsule Discontinued 300 MG PO Twice daily 14 7 February 13, 2024 12:00am February 26, 2024 10:49amFluticasone Propion-Salmeterol (20 sources)Corticosteroid, beta2-Adrenergic AgonistStart: 11-26-2024 End: 14-11-2516mfqk 1 puff(s) by inhalation every twelve hoursFluticasone Propion-Salmeterol (Advair Hfa) 115-21 mcg/actuation HFA aerosol inhaler Discontinued 2PUFF INHALATION Every 12 hours 12 November 26, 2024 10:19am February 12, 2025 6:38am On Hold: NoneStart: 76-60-2254vntp 1 puff(s) by inhalation every twelve hoursFluticasone Propion-Salmeterol (Advair Hfa) 115-21 mcg/actuation HFA aerosol inhaler Active 2 PUFF INHALATION Every 12 hours 10 27November 26, 2024 10:19am On Hold: NoneStart: 30-91-4006jnmq 1 puff(s) by inhalation every twelve hoursFluticasone Propion-Salmeterol (Advair Hfa) 115-21 mcg/actuation HFA aerosol inhaler Active 2 PUFF INHALATION Every 12 hours 10 27November 26, 2024 9:19am On Hold: NoneStart: 05-17-2023 End: 32-33-9442hpcx 1 puff(s) by inhalation twice dailyFluticasone Propion- Salmeterol (Advair Hfa) 115-21 mcg/actuation HFA aerosol inhaler Discontinued 2 PUFF INHALATION Twice daily May 17, 2023 12:00am November 26, 2024 10:19am Start: 05-17-2023 End: 37-41-0338hyim 1 puff(s) by inhalation twice dailyFluticasone Propion- Salmeterol (Advair Hfa) 115-21 mcg/actuation HFA aerosol inhaler Discontinued 2 PUFF INHALATION Twice daily May 16, 2023 11:00pm November 26, 2024 9:19am Start: 56-47-2733jyvv 1 puff(s) by inhalation twice dailyFluticasone Propion- Salmeterol (Advair Hfa) 115-21 mcg/actuation HFA aerosol inhaler Active 2 PUFF I NHALATION Twice daily May 16, 2023 11:00pmStart: 73-81-6802satn 1 puff(s) by inhalation twice dailyFluticasone Propion-Salmeterol (Advair Hfa) 115-21 mcg/actuation HFA aerosol inhaler Active 2 PUFF INHALATION Twice daily May 17, 2023 12:00amStart: 69-78-7769iejr 2 puff(s) by inhalation twice daily Fluticasone-Salmeterol 115-21 MCG/ACT 2 puffs Inhalation Twice a day Apr, Active End: 71-63-8256btso 2 puff(s) by inhalation in the morningfluticasone-salmeterol (Advair) 45-21 MCG/ACT inhaler Inhale 2 puffs in the morning and 2 puffs before bedtime. Rinse mouth with water after use to reduce aftertaste and incidence of candidiasis. Do not swallow. 02/25/2025 Discontinued (Therapy completed) furosemide 20 mg oral tablet (20 sources)Loop DiureticStart: 10-06-2024 End: 94-42-0946Plewyjmnhy 20 mg tablet Discontinued 0 .ROUTE .COMPLEX 180 October 06, 2024 1:59pm November 5:28pm TAKE 1 TABLET BY MOUTH 1 TO 2 TIMES DAILY NEEDEDStart: 05-18-2023 End: 08-81-5131trtt 1 tablet by mouth twice dailyFurosemide 20 mg tablet Discontinued 20 MG PO Twice daily December 23, 2024 2:16pm February 12, 2025 7:05amStart: 05-18-2023 End: 11-22-2971dtse 1 tablet by mouth three times weeklyFurosemide 20 mg tablet Discontinued 20 MG PO every other day May 18, 2023 11:38am October 06, 2024 2:00pm on even days 3 times a week. Goal weight is 195lbs, if you notice your weight trending up please take an extra dose as instructed by your PCP Start: 71-52-4270Ixdxqzottp 20 MG Oral Tablet one tablet M, W, F Quantity: 36 Refills: 3 Ordered: 21-Mar-2023 Edinson Perry DO Start : 21-Mar-2023 Active new doseStart: 03-08-2023 End: 66-50-3093Gvmmxipimm 20 mg tablet Discontinued 20 MG PO every other day March 08, 2023 12:00am May 18, 2023 11:39am on even days 3 times a weekStart: 03-08-2023 End: 83-85-3473gsdd 1 tablet by mouth once dailyFurosemide 20 mg tablet Discontinued 20 MG PO Daily February 12, 2025 12:00am June 19, 2025 10:05am Furosemide 20 MG TAKE 1 TABLET BY MOUTH 1 TO 2 TIMES DAILY NEEDED for 90 Activeirbesartan 150 mg oral tablet (20 sources)Angiotensin 2 Receptor BlockerStart: 11-28-2022 End: 51-34-8354oszn 1 tablet by mouth once daily in the morningIrbesartan 150 mg tablet Discontinued 150 MG PO Every morning March 08, 2023 12:00am February 27, 2024 10:37amtake 1 tablet by mouth twice dailyIrbesartan 150 MG 1 tablet Orally twice daily Activelevothyroxine sodium 0.075 mg oral tablet (16 sources)l-ThyroxineStart: 02-19-2024 End: 10-08-0327njde 1 tablet by mouth once dailyLevothyroxine 75 mcg tablet Discontinued 75 MCG PO Daily February 26, 2024 12:00am September 15, 2024 10:40amlosartan potassium 50 mg oral tablet (20 sources)Angiotensin 2 Receptor BlockerStart: 01-31-2024 End: 57-19-3883cpgh 1 tablet by mouth twice dailyLosartan 50 mg tablet Discontinued 50 MG PO Twice daily January 31, 2024 12:00am February 26, 2024 10: 53amStart: 72-33-1053bivd 1 tablet by mouth twice dailyLosartan Potassium 50 MG 1 tablet Orally twice daily May, Active End: 04-13-5510lwvk 1 tablet by mouth once dailylosartan (COZAAR) 100 mg tablet Take 100 mg by mouth once daily. 07/08/2025 Discontinued (Discontinued by another Health Care Provider)take 1 tablet by mouth once dailyLosartan Potassium 50 MG 1 tablet Orally Once a day for 90 days ActiveComment on above:Take 100 mg by mouth once daily.MULTI-VITAMIN ORAL (9 sources) End: 26-00-0611XUPJH-VITAMIN ORAL Take by mouth. 07/08/2025 Discontinued (Discontinued by another Health Care Provider)MULTI-VITAMIN ORAL Take by mouth. ActiveMULTI-VITAMIN ORAL Take by mouth. 0 ActiveComment on above:Take by mouth. Multivitamin preparation (7 sources)Start: 03-08-2023 End: 90-13-7182nspv 1 tablet by mouth once dailyMultivitamin Discontinued 1 TAB PO Daily March 08, 2023 12:00am May 17, 2023 10:50amStart: 61-13-7968cobh 1 tablet by mouth once dailyMultivitamin Active 1 TAB PO Daily March 08, 2023 12:00amMultivitamin Tablet (10 sources)Start: 03-08-2023 End: 92-36-8125gdqb 1 tablet by mouth once dailyMultivitamin Tablet Discontinued 1 TAB PO Daily March 08, 2023 12:00am May 17, 2023 10:50amStart: 03-08-2023 End: 87-86-0246bmqr 1 tablet by mouth once dailyMultivitamin Tablet Discontinued 1 TAB PO Daily March 07, 2023 11:00pm May 17, 2023 9:50amNIFEdipine 30 mg osmotic 24 hr extended release oral tablet (20 sources)Dihydropyridine Calcium Channel BlockerStart: 02-20-2024 End: 35-22-7685tnrr 1 tablet by mouth once dailyNifedipine 30 mg tablet extended release 24hr Discontinued 30 MG PO Daily February 26, 2024 12:00am March 19, 2024 2:54pmStart: 74-72-6732zbuk 1 tablet by mouth every twenty-four hoursNIFEdipine ER (PROCARDIA XL) 30 mg 24 hr tablet Take 30 mg by mouth. 02/20/2024 Ulmond68 hr nitroglycerin 0.2 mg/hr transdermal system (19 sources)Nitrate VasodilatorStart: 03-08-2023 End: 62-77-3950yssfn 0.2 mg transdermal route every hourNitroglycerin 0.2 mg/hr patch 24 hour Discontinued 0.2 MG TRANSDERML Daily March 08, 2023 12:00am May 17, 2023 10:50amStart: 03-08-2023 End: 05-49-5391Dnxkkrrrlbwzi Discontinued 0.2 MG TRANSDERML Daily March 08, 2023 12:00am May 17, 2023 10:50amStart: 42-23-3606jatet 1 dose transdermal route once daily, then apply 1 dose transdermal route every twenty-four hours Nitroglycerin 0.2 MG/HR Transdermal Patch 24 Hour APPLY PATCH FOR 12 TO 14 HOURS DAILY, THEN REMOVEQuantity: 90 Refills: 3 Ordered: 07-Mar-2023 Edinson Perry DO Start : 07-Mar-2023 Active new startnystatin 997086 unt/ml oral suspension (4 sources)Polyene AntifungalStart: 02-16-2025 End: 30-85-1915zohe 1 mL by mouth four times dailyNystatin 100,000 unit/mL suspension Discontinued 5 ML PO Four times daily 140 7 February 16, 2025 12:00am March 19, 2025 11:47am swish for 30 seconds and swallowNystatin 100,000 unit/mL suspension (1 source)Start: 02-16-2025 End: 96-71-8188cirw 1 mL by mouth four times dailyNystatin 100,000 unit/mL suspension Discontinued 5 ML PO Four times daily 140 7 February 16, 2025 12:00am March 19, 2025 11:47am swish for 30 seconds and swallowpravastatin sodium 40 mg oral tablet (20 sources)HMG-CoA Reductase InhibitorStart: 03-08-2023 End: 11-62-5465vuvl 1 tablet by mouth once daily in the eveningPravastatin 40 mg tablet Discontinued 40 MG PO Every evening March 08, 2023 12:00am February 012:10pmComment on above:Take 40 mg by mouth every evening.predniSONE 20 mg oral tablet (20 sources)Start: 19-57-6537prtp 1 tablet by mouth every twelve hourspredniSONE 20 MG 1 tablet with food or milk Orally Twice a day for 3 day(s) February, Not-Takingpsyllium 400 mg oral capsule (4 sources)Start: 03-08-2023 End: 66-00-9956Gwfawxdt Husk (Metamucil) 0.4 gram Capsule Discontinued 0.4 GM PO Daily as needed for Constipation March 08, 2023 12:00am May 17, 2023 10:50am Psyllium Husk (Metamucil) 0.4 gram Capsule (13 sources)Start: 03-08-2023 End: 34-97-1572Njxulvte Husk (Metamucil) 0.4 gram Capsule Discontinued 0.4 GM PO Daily as needed for Constipation March 08, 2023 12:00am May 17, 2023 10:50am Start: 03-08-2023 End: 91-47-8370Mdewfpha Husk (Metamucil) 0.4 gram Capsule Discontinued 0.4 GM PO Daily as needed for Constipation March 07, 2023 11:00pm May 17, 2023 9:50am Start: 03-08-2023 End: 15-16-9920Vxflffkm Husk (Metamucil) 0.4 gram Capsule Discontinued 0.4 GM PO Daily March 08, 2023 12:00am 2022 10:50amStart: 88-37-3638Ikvrczid Husk (Metamucil) 0.4 gram Capsule Active 0.4 GM PO Daily March 08, 2023 12:00am regadenoson (Lexiscan) injection 0.4 mg (1 source)Start: 03-12-2024 End: 40.4 mg, intravenous, Once, On Sun03/12/24 at 0915, For 1 dose rOPINIRole 0.25 mg oral tablet (20 sources)Nonergot Dopamine AgonistStart: 11-23-2022 End: 21-90-1454ixyb 1 tablet by mouth once dailyRopinirole 0.25 mg tablet Discontinued 0.25 MG PO Daily 90 90 December 18, 2023 10:31am February 27, 2024 10:38amsacubitril 24 mg / valsartan 26 mg oral tablet (20 sources)Angiotensin 2 Receptor BlockerStart: 02-20-2024 End: 35-38-3021kqxg 1 tablet by mouth twice dailySacubitril-Valsartan (Entresto) 24-26 mg tablet Discontinued 1 TAB PO Twice daily February 26, 2024 12:00am March 19, 2024 2:54pmStart: 78-23-1970bloq 1 tablet by mouth in the morningEntresto 24-26 MG tablet Take 1 tablet by mouth in the morning and 1 tablet in the evening. 02/20/2024 Activesulfamethoxazole 800 mg / trimethoprim 160 mg oral tablet (20 sources)Dihydrofolate Reductase Inhibitor Antibacterial, Sulfonamide AntimicrobialStart: 69-77-2422tpyu 1 tablet by mouth every twelve hoursBactrim DS 800-160 MG 1 tablet Orally Twice a day for 5 days Sep, Not-TakingTc- 99m tetrofosmin (Myoview) injection 10 millicurie (1 source)Start: 03-12-2024 End: millicurie, intravenous, Once in imaging, Starting on Sun03/12/24 at 0836, For 1 dose, Administer 45 to 90 minutes prior to imaging unless otherwise indicated.Tc-99m tetrofosmin (Myoview) injection 30 millicurie (1 source)Start: 03-12-2024 End: millicurie, intravenous, Once in imaging, Starting on Sun03/12/24 at 0945, For 1 dose, Administer 45 to 90 minutes prior to imaging unless otherwise indicated.temazepam 15 mg oral capsule (20 sources)BenzodiazepineStart: 12-21-2022 End: 28-31-6563wktw 1 capsule by mouth once daily at bedtimeTemazepam 15 mg capsule Discontinued 15 MG PO Daily at bedtime March 08, 2023 12:00am June 13, 2024 2:15pmTemazepam Not-TakingComment on above:Take by mouth at bedtime as needed.ticagrelor 90 mg oral tablet (20 sources)Start: 03-09-2023 End: 22-11-6923zavz 1 tablet by mouth twice dailyTicagrelor (Brilinta) 90 mg tablet Discontinued 90 MG PO Twice daily 180 March 09, 2023 12:00am May 17, 2023 2:07pm Problems Active Problems Problem ClassificationProblemDateDocumented DateEpisodic/ChronicAcute bronchitis (20 sources)Acute bronchitis; Translations: [Acute bronchitis, unspecified] Onset: 90-58-5890ZlynavmlNpoflrw disorders (20 sources)Generalized anxiety disorder; Translations: [Generalized anxiety disorder]Onset: 68-43-6792VuawpreJopsujc dysrhythmias (20 sources)Palpitations; Translations: [Bradycardia, unspecified]Onset: 06-45-1887IysjizgrIlbwstm kidney disease (18 sources)Chronic kidney disease; Translations: [Chronic kidney disease, unspecified]44-38-3079ZxtwhigSizfcaq obstructive pulmonary disease and bronchiectasis (20 sources)Simple chronic bronchitis; Translations: [Simple chronic bronchitis] Onset: 84-99-6426RwsnmuaYxwtbcyrei heart failure; nonhypertensive (20 sources)Acute on chronic diastolic heart failure; Translations: [Acute on chronic diastolic (congestive) heart failure]Onset: 78-56-9991KxanbgeYwfjcah on above:- LHC w/ PCI/stent LAD, RCA (Feb, 2023)- Echo w/ LVEF 60%, ELY, normal RV size/function, RVSP 41 - roblem List clean-up per request of Phys. EHR Cmte- LHC w/ PCI/stent LAD, RCA (Feb, 2023)- Echo w/ LVEF 60%, ELY, normal RV size/function, RVSP 41 - 01/2024,Echo: LVEF 60-65%, normal RV size/function, mild-mod MR - 5oronary atherosclerosis and other heart disease (20 sources)Angina, class III; Translations: [Other and unspecified angina pectoris]Onset: 54-08-1718YxdyspiJtsaqki on above:LHC w/ PCI/stent LAD, RCA (Feb, 2023)Problem List clean-up per request of Phys. EHR CmteDeficiency and other anemia (1 source)Anemia of chronic disease; Translations: [Anemia in other chronic diseases classified elsewhere]12-26-8920GkxlkltDnxqmqpsmq and other anemia (1 source)Anemia in other chronic diseases classified elsewhere; Translations: [Anemia in other chronic diseases classified elsewhere]Onset: 31-64-7612Uokcaiv Deficiency and other anemia (20 sources)Anemia; Translations: [Anemia, unspecified]Onset: 11-24-2024 20-22-0733MwijohvnRthpavdurg and other anemia (9 sources)Anemia, unspecified; Translations: [Anemia, unspecified]Onset: 29-27-0664ShcjlgtsMfwyjiws of mouth; excluding dental (20 sources)Stomatitis; Translations: [Other forms of stomatitis] Resolved: 62-93-2799TjmmgssfHduhrtmpt of lipid metabolism (20 sources)Pure hypercholesterolemia; Translations: [Familial hypercholesterolemia]Onset: 63-32-9108UitododMhogwdk on above:Problem List clean-up per request of Phys. EHR CmteE Codes: Adverse effects of medical drugs (20 sources)Adverse reaction to drug; Translations: [Adverse effect of unspecified drugs, medicaments and biological substances, subsequent encounter] EpisodicEsophageal disorders (20 sources)Gastro-esophageal reflux disease with esophagitis; Translations: [Gastroesophageal reflux disease with esophagitis without hemorrhage]Onset: 927963-65-1417VoeujfnPryohdykn hypertension (20 sources)Essential hypertension; Translations: [Essential (primary) hypertension]Onset: 04-51-6658BhggocaZcsqwbz on above:Problem List clean-up per request of Phys. EHR CmteGenitourinary symptoms and ill-defined conditions (20 sources)Urinary tract infectious disease; Translations: [Unspecified symptoms and signs involving the genitourinary system]EpisodicHeadache; including migraine (20 sources)Episodic tension-type headache; Translations: [Episodic tension-type headache, not intractable]Onset: 06-95-2654YdesezxNifqcvtmbaoh with complications and secondary hypertension (18 sources)Hypertensive heart disease with heart failure; Translations: [Hypertensive emergency]Onset: 787183-88-9368McqzgkeAtsgwas on above: Problem List clean-up per request of Phys. EHR CmteImmunizations and screening for infectious disease (20 sources)Other specified abnormal immunological findings in serum; Translations: [Abnormal blood test]Onset: 877634-18-6156Jdeiupkg Lymphadenitis (20 sources)Submandibular lymphadenopathy; Translations: [Localized enlarged lymph nodes]Onset: 99-00-5952XschfmjvMbhkqoi and fatigue (20 sources)Malaise; Translations: [Other malaise] Resolved: 149492-06-5169TbivmqyyGkwpejbcwr disorders (20 sources)Atrophic vaginitis; Translations: [Postmenopausal atrophic vaginitis]Onset: 497407-78-9870SqpztokEpeooetojxrrd mental health disorders (20 sources)Primary insomnia; Translations: [Primary insomnia]ChronicNeoplasms of unspecified nature or uncertain behavior (20 sources)Monoclonal paraproteinemia; Translations: [Monoclonal gammopathy] ChronicOsteoarthritis (20 sources)Osteoarthritis; Translations: [Polyosteoarthritis, unspecified] Onset: 86-91-0169QrthwluZdeon aftercare (1 source)senior living (current) use of aspirin; Translations: [[facility] CURRENT USE OF ASPIRIN]Onset: 47-94-6378MgefubptFymbm aftercare (1 source)Other penitentiary (current) drug therapy; Translations: [OTH [facility] CURRENT DRUG THERAPY]Onset: 05-91-2760RcccowykAyrhd and ill-defined heart disease (2 sources)Heart disease; Translations: [Heart disease, unspecified]06-06-2023 ChronicOther and ill-defined heart disease (1 source)Heart disease, unspecified; Translations: [Heart disease]Onset: 24-44-1763LlubaixKmkvy and unspecified benign neoplasm (20 sources)Lipoma of skin and subcutaneous tissue of neck; Translations: [Benign lipomatous neoplasm of skin and subcutaneous tissue of head, face and neck]EpisodicOther and unspecified benign neoplasm (20 sources)Lipoma of skin and subcutaneous tissue of face; Translations: [Benign lipomatous neoplasm of skin and subcutaneous tissue of head, face and neck]EpisodicOther connective tissue disease (6 sources)Cramp in lower limb; Translations: [Sleep related leg cramps] 73-06-2379UnvjgrqQixch connective tissue disease (2 sources)Sleep related leg cramps; Translations: [Sleep related leg cramps] 32-92-7554FxlclweLfjkg connective tissue disease (20 sources)Radial styloid tenosynovitis; Translations: [Radial styloid tenosynovitis [de Querv[place]]]35-16-7219LqhzxtzlTdhta connective tissue disease (20 sources)Pain in right lower limb; Translations: [Pain in right leg]Episodic Other connective tissue disease (20 sources)Trochanteric bursitis of right hip; Translations: [Trochanteric bursitis, right hip]EpisodicOther connective tissue disease (1 source)Radial styloid tenosynovitis [de [place]erv[place]]; Translations: [Radial styloid tenosynovitis [de [place]]]EpisodicOther diseases of veins and lymphatics (20 sources)Peripheral venous insufficiency; Translations: [Venous insufficiency (chronic) (peripheral)]Onset: 018203-61-1957IsrjhvptDfagq diseases of veins and lymphatics (20 sources)Venous insufficiency (chronic) (peripheral); Translations: [Venous (peripheral) insufficiency, unspecified]EpisodicOther diseases of veins and lymphatics (20 sources)Stasis dermatitis; Translations: [Venous insufficiency (chronic) (peripheral)]EpisodicOther endocrine disorders (20 sources)Disorder of adrenal gland; Translations: [Disorder of adrenal gland, unspecified]ChronicOther endocrine disorders (20 sources)Other specified disorders of adrenal gland; Translations: [Nodule of adrenal cortex (disorder)]ChronicOther endocrine disorders (1 source)Disorder of adrenal gland, unspecifiedChronicOther endocrine disorders (20 sources)Adrenal mass; Translations: [Other specified disorders of adrenal gland]Onset: 976762-78-9376LhwfdurJjtqt eye disorders (20 sources)Ptosis of eyelid; Translations: [Unspecified ptosis of right eyelid] EpisodicOther female genital disorders (20 sources)Noninflammatory disorder of the vagina; Translations: [Other specified noninflammatory disorders ofvagina]EpisodicOther gastrointestinal disorders (20 sources)Irritable bowel syndrome with diarrhea; Translations: [Irritable bowel syndrome with diarrhea]51-51-2014WwexjccArbab hematologic conditions (5 sources)Protein electrophoresis abnormal; Translations: [Other specified abnormalities of plasma proteins]EpisodicOther hematologic conditions (2 sources)Other specified abnormalities of plasma proteins; Translations: [OTH SPEC ABNORM PLASMA PROTEINS]Onset: 31-70-7627NkqfxdqbKgqgk hereditary and degenerative nervous system conditions (20 sources)Restless legs; Translations: [Restless legs syndrome]01-31-2024 ChronicOther hereditary and degenerative nervous system conditions (4 sources)Restless legs syndromeChronicOther injuries and conditions due to external causes (20 sources)History of fall; Translations: [History of falling]EpisodicOther injuries and conditions due to external causes (20 sources)Angioedema; Translations: [Angioneurotic edema, initial encounter] EpisodicOther lower respiratory disease (3 sources)Multiple nodules of lung; Translations: [Other nonspecific abnormal finding of lung field]EpisodicOther lower respiratory disease (20 sources)Lung field abnormal; Translations: [Other nonspecific abnormal finding of lung field]EpisodicOther lower respiratory disease (20 sources)Solitary nodule of lung; Translations: [Solitary pulmonary nodule] EpisodicOther lower respiratory disease (2 sources)Solitary pulmonary noduleEpisodicOther lower respiratory disease (2 sources)Other forms of dyspneaEpisodicOther lower respiratory disease (3 sources)Dyspnea on exertion; Translations: [Shortness of breath]EpisodicOther lower respiratory disease (5 sources)Shortness of breath; Translations: [SHORTNESS OF BREATH]Onset: 18-40-6249MpsvyqdjHuzud lower respiratory disease (20 sources)Acute cardiac pulmonary edema ; Translations: [Acute pulmonary edema]Onset: 772059-65-5837YhfgmtnnEbtquhy on above:Problem List clean-up per request of Phys. EHR CmteOther lower respiratory disease (16 sources)Hypoxia; Translations: [Hypoxemia]68-62-3133VlicvxjqEnhshxh on above:Problem List clean-up per request of Phys. EHR CmteOther lower respiratory disease (1 source)Acute pulmonary edema; Translations: [Acute edema of lung, unspecified]47-06-9798DsyefzgpZezhy lower respiratory disease (1 source)Hypoxemia; Translations: [Hypoxemia]25-47-8813QiaxweolEaknu nervous system disorders (20 sources)Neuropathy; Translations: [Polyneuropathy, unspecified]ChronicOther nervous system disorders (20 sources)Peripheral nerve disease ; Translations: [Polyneuropathy, unspecified]ChronicOther nervous system disorders (1 source)Idiopathic progressive neuropathyChronicOther nervous system disorders (19 sources)Polyneuropathy; Translations: [Polyneuropathy, unspecified]Chronic Other nervous system disorders (1 source)Polyneuropathy, unspecified; Translations: [Polyneuropathy, unspecified]ChronicOther nervous system disorders (5 sources)Skin sensation disturbance; Translations: [Paresthesia of skin] EpisodicOther nervous system disorders (20 sources)Unsteady when walking; Translations: [Unsteadiness on feet]Episodic Other nervous system disorders (20 sources)Paresthesia; Translations: [Paresthesia of skin]EpisodicOther nervous system disorders (4 sources)Paresthesia of skinEpisodicOther nervous system disorders (19 sources)Abnormal gait; Translations: [Unsteadiness on feet]EpisodicOther nervous system disorders (1 source)Unsteadiness on feet; Translations: [Unsteadiness on feet]Episodic Other non-traumatic joint disorders (20 sources)Arthralgia of the pelvic region and thigh; Translations: [Pain in right hip]EpisodicOther non-traumatic joint disorders (20 sources)Arthralgia of the lower leg; Translations: [Pain in right knee] EpisodicOther non-traumatic joint disorders (19 sources)Pain in right hip joint; Translations: [Pain in right hip]Episodic Other non-traumatic joint disorders (1 source)Pain in right hip; Translations: [Pain in right hip]EpisodicOther non- traumatic joint disorders (11 sources)Pain in right knee; Translations: [Chronic pain of right knee] 78-53-4645SluukwyePlgbb non-traumatic joint disorders (1 source)Hip pain; Translations: [Pain in right hip]08-83-2182QektzsbfYpkcr nutritional; endocrine; and metabolic disorders (20 sources)Simple obesity ; Translations: [Exogenous obesity]84-23-3778Yjmklnq Other nutritional; endocrine; and metabolic disorders (20 sources)Obese class I; Translations: [Obesity, unspecified]ChronicOther nutritional; endocrine; and metabolic disorders (2 sources)Obesity, unspecifiedChronicOther nutritional; endocrine; and metabolic disorders (20 sources)Obesity; Translations: [Obesity, unspecified]99-04-3449YsxfmryVxktu nutritional; endocrine; and metabolic disorders (20 sources)Obesity caused by energy imbalance; Translations: [Other obesity due to excess calories]ChronicOther nutritional; endocrine; and metabolic disorders (20 sources)Body mass index 30+ - obesity; Translations: [Body mass index (BMI) 32.0-32.9, adult]Onset: 100221-76-5418IxuipohYahmg nutritional; endocrine; and metabolic disorders (4 sources)Other obesity due to excess caloriesChronicOther nutritional; endocrine; and metabolic disorders (5 sources)Body mass index (BMI) 32.0-32.9, adult; Translations: [Body mass index (BMI) 32.0-32.9, adult]Onset: 54-35-9846CvewkjsClerb nutritional; endocrine; and metabolic disorders (3 sources)Body mass index (BMI) 33.0-33.9, adult; Translations: [Body mass index (BMI) 33.0-33.9, adult]Onset: 30-97-2621ZekdpreVdbhk screening for suspected conditions (not mental disorders or infectious disease) (20 sources)Encounter for screening mammogram for malignant neoplasm of breast; Translations: [Cardiovascular stress test abnormal]Onset: 11-57-2437Tgyqfeii Comment on above:Problem List clean-up per request of Phys. EHR CmteOther skin disorders (1 source)Localized swelling, mass and lump, neckEpisodicOther upper respiratory disease (20 sources)Seasonal allergic rhinitis; Translations: [Other seasonal allergic rhinitis]Onset: 80-09-4116NknjarnSbace upper respiratory disease (20 sources)Allergic rhinitis; Translations: [Allergic rhinitis, unspecified] Onset: 85-61-1460UbkakpvDwcir upper respiratory disease (20 sources)Vasomotor rhinitis; Translations: [Vasomotor rhinitis]Onset: 92-09-0394RmqwhusUszkg upper respiratory infections (20 sources)Acute sinusitis; Translations: [Acute sinusitis, unspecified]Onset: 48-54-6309UxubcbquSzunzj media and related conditions (20 sources)Otitis media; Translations: [Otitis media, unspecified, unspecified ear]32-47-3296GlzoxwltAjvjkomur (except that caused by tuberculosis or sexually transmitted disease) (1 source)Pneumonia, unspecified organism; Translations: [PNEUMONIA UNSPECIFIED ORGANISM]Onset: 74-92-5194GcuszapdQpwdpfcgx heart disease (20 sources)Pulmonary hypertension; Translations: [Pulmonary hypertension, unspecified]ChronicResidual codes; unclassified (12 sources)Asymptomatic menopausal state; Translations: [Menopause]Episodic Residual codes; unclassified (20 sources)Menopause present; Translations: [Asymptomatic menopausal state] 90-04-7072CdtqwxegPtmsvqrk codes; unclassified (1 source)Family history of malignant neoplasm of bladder; Translations: [FAM HX MALIGNANT NEOPLASM BLADDER]Onset: 54-38-7525YxnhtnpuQexcwbdr codes; unclassified (1 source)Family history of malignant neoplasm of digestive organs; Translations: [FAM HX MALIG NEOPLASM DIGESTIV ORGN]Onset: 92-81-6056Nmwdkgan Residual codes; unclassified (1 source)Family history of other malignant neoplasms of lymphoid, hematopoietic and related tissues; Translations: [FAM HX OTH MAL TANJA LYMPH HEMATPOETC]Onset: 18-68-1259MoehafdcBdikbjtu codes; unclassified (1 source)Family history of malignant neoplasm of trachea, bronchus and lung; Translations: [FAM HX MALIG NEOPLSM TRACH BRON LNG]Onset: 40-13-5302Wejndjvn Residual codes; unclassified (20 sources)Postmenopausal state; Translations: [Asymptomatic menopausal state] EpisodicResidual codes; unclassified (19 sources)Symptom: generalized; Translations: [Other general symptoms and signs]EpisodicResidual codes; unclassified (1 source)Other general symptoms and signs; Translations: [Other general symptoms and signs]EpisodicResidual codes; unclassified (1 source)Edema; Translations: [Edema, unspecified]80-61-2006YnzsfzzoTzxyhkhfgna failure; insufficiency; arrest (adult) (1 source)Acute respiratory failure with hypoxia; Translations: [ACUTE RESPIRATORY FAIL W/HYPOXIA]Onset: 97-39-2309KkkrqwluLkzjhujdtqb failure; insufficiency; arrest (adult) (1 source)Respiratory failure; insufficiency; arrest (adult)Retinal detachments; defects; vascular occlusion; and retinopathy (8 sources)Epiretinal membrane of left eye; 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, left eye]Onset: 317853-25-6693LignkveUhga and subcutaneous tissue infections (2 sources)Cellulitis of right fingerEpisodicSpondylosis; intervertebral disc disorders; other back problems (20 sources)Cervical spondylosis without myelopathy; Translations: [Other spondylosis with radiculopathy, cervical region]Onset: ChronicSprains and strains (20 sources)Neck sprain; Translations: [Strain of muscle, fascia and tendon at neck level, initial encounter]Onset: 04-05-2016 Resolved: 11-52-7210LpjggdvwWbngxcrhu-related disorders (20 sources)Tobacco user; Translations: [Nicotine dependence, cigarettes, in remission]ChronicThyroid disorders (20 sources)Goiter; Translations: [Iodine-deficiency related diffuse (endemic) goiter]23-52-4259HmajoniLnzgsgn on above:US: right 16mm TR4, left 5-7mm TR4 - 08/2024US: right 16mm TR4, left 5-7mm TR4 - 08/2024FNA: right nodule 11/17/24US: right 16mm TR4, left 5-7mm TR4 - 08/2024,FNA: right nodule - 11/17/24,US: no change - 01/2025Unclassified (3 sources)CONTACT W/AND (SUSP) EXPOS COVID-19; Translations: [CONTACT W/AND (SUSP) EXPOS COVID-19]Onset: 41-08-6188Abacu infection (20 sources)COVID-19; Translations: [Disease caused by 2019-nCoV]Onset: 05-08-2022 Past or Other Problems Problem ClassificationProblemDateDocumented DateEpisodic/ChronicCoronary atherosclerosis and other heart disease (4 sources)Patient post percutaneous transluminal coronary angioplasty; Translations: [Percutaneous transluminal coronary angioplasty status]Onset: 268226-80-9040JgiexhwaXisvglqswx disorders (20 sources)Esophageal disorders; Translations: [Gastroesophageal reflux disease with esophagitis without hemorrhage]Headache; including migraine (20 sources)Headache; Translations: [Headache, unspecified]Onset: 10-19-2015 EpisodicInflammation; infection of eye (except that caused by tuberculosis or sexually transmitteddisease) (8 sources)Blepharitis of upper and lower eyelids of bilateral eyes; Translations: [Unspecified blepharitis right eye, upper and lower eyelids]Onset: 648383-75-8532AlylfouzIfnvdpy (20 sources)Candidiasis of mouth; Translations: [Candidal stomatitis]Onset: 81-68-6172KaqrjqetCihswftwuplm breast conditions (20 sources)Pain of breast; Translations: [Mastodynia] Resolved: 00-11-0622EulunafzIiitithvdfp chest pain (20 sources)Precordial pain; Translations: [Chest pain]Onset: 91-28-1984Ovsqqimq Other connective tissue disease (20 sources)Shoulder lesion, unspecified, left shoulder; Translations: [Shoulder lesion, unspecified, left shoulder]Onset: 42-29-0612GgcdmuquQepdw eye disorders (8 sources)Dry eyes; Translations: [Dry eye syndrome of bilateral lacrimal glands]Onset: 878811-15-3305GucdthtlWmvnn lower respiratory disease (20 sources)Cough; Translations: [Cough, unspecified]Onset: 05-06-4242Gnbfetab Other lower respiratory disease (10 sources)Dyspnea; Translations: [Shortness of breath]Onset: 10-17-2023 28-16-4086VeggwsncOlesm nervous system disorders (19 sources)Tremor; Translations: [Tremor, unspecified]Onset: 67-55-6881Vjzxyiov Other nervous system disorders (19 sources)Atypical facial pain; Translations: [Atypical facial pain]Onset: 68-53-2634BdzjjdhjPefag nervous system disorders (1 source)Tremor, unspecified; Translations: [Tremor, unspecified]Onset: 22-76-3098RnbvcjgvYbeyx nervous system disorders (1 source)Atypical facial pain; Translations: [Atypical facial pain]Onset: 22-96-2462InmimjjiLpbxi non-traumatic joint disorders (19 sources)Shoulder joint pain; Translations: [Pain in left shoulder]Onset: 89-01-8875IgvqrdmyExaby non-traumatic joint disorders (1 source)Pain in left shoulder; Translations: [Pain in left shoulder]Onset: 46-02-4250ApfvtbayIgqzjuxi codes; unclassified (20 sources)Insomnia; Translations: [Insomnia, unspecified]Onset: 06-23-2015 EpisodicScreening and history of mental health and substance abuse codes (20 sources)Ex-smoker; Translations: [Personal history of tobacco use]Onset: 919939-16-2020OfvcrikuXgmkqiq on above:1998;Spondylosis; intervertebral disc disorders; other back problems (20 sources)Neck pain; Translations: [Cervicalgia]Onset: 72-93-3284Vjmuqsve Superficial injury; contusion (20 sources)Contusion of ankle; Translations: [Contusion of unspecified ankle, initial encounter]Onset: 32-05-7813GldfkrwmTgwduahetqii (3 sources)Patient status finding; Translations: [Patient new to provider] Unclassified (1 source)CONTACT W/AND (SUSP) EXPOS COVID-19; Translations: [CONTACT W/AND (SUSP) EXPOS COVID-19]Onset: 86-80-3163Cctuwwwlrldy (20 sources)Acute candidiasis of vulva and vagina; Translations: [Acute candidiasis of vulva and vagina] Resolved: 66-69-2112Snvsxqpnorow (1 source)Subacute cough R05.2Unclassified (1 source)Post COVID-19 condition, 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Unclassified (1 source)Chronic cough R05.3Unclassified (10 sources)Onset: 03-05-2024 Resolved: 145124-23-0445Xjhfaah tract infections (20 sources)Urethral syndrome; 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, unspecified] Resolved: 11-87-1222QgqynnqgPhaco infection (17 sources)Disease caused by 2019-nCoV; Translations: [COVID-19]Onset: 607908-12-9543Bwjyjbas Results Test NameValueInterpretationReference RangeFacilityBasophils Auto (Bld) [#/Vol] Ordered By: Valentin Leonard on 38-57-5908Yqmkpnsrl (Bld) [#/Vol]0.05 10*3/uL <0.11[facility] HospitalBasophils/100 WBC Auto (Bld)Ordered By: Valentin Leonard on 41-21-9176Domcnwaqz/100 WBC (Bld)0.8 %[facility] HospitalBlood manual differential comment interpretation narrativeOrdered By: Valentin Leonard on 74-41-6139Mtcsvn differential comment Arturo (Bld) [Interp] AutoSelect Medical Trihealth Rehabilitation HospitalCB W Auto Differential panel (Bld)on 52-42-5783Nunhimlia (Bld) [#/Vol]0.05 10*3/uLNormal<0.11CKindred Healthcare on above:Order Comment: Specimen Type: BLOOD SPECIMEN Ordering Facility[facility] Address: [address] [place], [place] [address]Performed By: #### 68719-1 #### [facility] CLIA [id number] [address] [place] [address] [place] [address] [place] OF AMERICABasophils/100 WBC (Bld)0.8 % NormalSalem Regional Medical Center on above:Order Comment: Specimen Type: BLOOD SPECIMEN Ordering Facility[facility] Address: [address] [place], [place] [address]Performed By: #### 12438-0 #### [facility] CLIA [id number] [address] [place] [address] [place] OF AMERICADifferential cell count method Nom (Bld)AutoNormalClevelFulton County Health Center on above:Order Comment: Specimen Type: BLOOD SPECIMEN [facility]ing Facility[facility] Address: [address] [place], [place] [address]Performed By: #### 66116-6 #### [facility] CLIA [id number] [address] [place] [address] [place] AMERICAEosinophils (Bld) [#/Vol] 0.16 10*3/uLNormal<0.46[facility] on above:Order Comment: Specimen Type: BLOOD SPECIMEN [facility] Address: [address] [place], [place] [address]Performed By: #### 14094-3 #### [facility] CLIA [id number] [address] [place] [address] [place] AMERICAEosinophils/100 WBC (Bld)2.5 %NormalSalem Regional Medical Center on above:Order Comment: Specimen Type: BLOOD SPECIMEN [facility]ing Facility[facility] Address: [address] [place], [place] [address]Performed By: #### 57224-4 #### [facility] CLIA [id number] [address] [place] [address] [place] AMERICAErythrocyte distribution width (RBC) [Ratio]13.5 %Fysibf25.5-15.0[facility] on above:Order Comment: Specimen Type: BLOOD SPECIMEN [facility]ing Facility[facility] Address: [address] [place], [place] [address]Performed By: #### 13168-0 #### [facility] CLIA [id number] [address] [place] [address] [place] OF AMERICAHematocrit (Bld) [Volume fraction]27.6 %Low36.0-46.0[facility] on above:Order Comment: Specimen Type: BLOOD SPECIMEN Ordering Facility[facility] Address: [address] [place], [place] [address]Performed By: #### 32967-4 #### [facility] [place] [id number] [address] [place] [address] [place] AMERICAHemoglobin (Bld) [Mass/Vol] 8.9 g/dLLow11.5-15.5CKindred Healthcare on above:Order Comment: Specimen Type: BLOOD SPECIMEN Order[facility] Address: [address] [place], [place] [address]Performed By: #### 86377-8 #### [facility] [place] [id number] [address] [place] [address] [place] AMERICAImmature granulocytes (Bld) [#/Vol]0.03 10*3/uLNormal<0.10[facility] on above:Order Comment: Specimen Type: BLOOD SPECIMEN Ordering Facility[facility] Address: [address] [place], [place] [address]Performed By: #### 90950-3 #### [facility] [place] [id number] [address] [place] [address] [place] AMERICAImmature granulocytes/100 WBC (Bld)0.5 %NormalSalem Regional Medical Center on above:Order Comment: Specimen Type: BLOOD SPECIMEN Ordering [facility] Address: [address] [place], [place] [address]Performed By: #### 01101-6 #### [facility] [place] [id number] [address] [place] [address] [place] OF AMERICALymphocytes (Bld) [#/Vol] 0.77 10*3/uLLow1.00-4.00[facility] on above:Order Comment: Specimen Type: BLOOD SPECIMEN Ordering Facility[facility] Address: [address] [place], [place] [address]Performed By: #### 94016-5 #### [facility] CLIA [id number] [address] [place] [address] [place] [facility]OCK[facility] DIVISIONLymphocytes/100 WBC (Bld) 12.3 %NormalSalem Regional Medical Center on above:Order Comment: Specimen Type: BLOOD SPECIMEN Ordering Facility[facility] Address: [address] [place], [place] [address]Performed By: #### 40758-4 #### [facility] CLIA [id number] [address] [place] [address] (RBC) [Entitic mass]28.8 bgKrawcj07.0-34.0[facility] on above:Order Comment: Specimen Type: BLOOD SPECIMEN Ordering Facility[facility] Address: [address] [place], [place] [address]Performed By: #### 36600-4 #### [facility] CLIA [id number] [address] [place] [address] [facility] HEALTH SYSTEMMCHC (RBC) [Mass/Vol]32.2 g/lQRvevzf61.5-36.0[facility] on above:Order Comment: Specimen Type: BLOOD SPECIMEN Ordering [facility] Address: [address] [place], [place] [address]Performed By: #### 21285-5 #### [facility] CLIA [id number] [address] [place] [address] (RBC) [Entitic vol]89.3 qZPbjvuk52.0-100.0[facility] on above:Order Comment: Specimen Type: BLOOD SPECIMEN Ordering [facility] Address: [address] [place], [place] [address]Performed By: #### 61781-8 #### [facility] CLIA [id number] [address] [place] [address] [place] AMERICAMonocytes (Bld) [#/Vol]0.65 10*3/uLNormal<0.87[facility] on above:Order Comment: Specimen Type: BLOOD SPECIMEN Ordering [facility] Address: [address] [place], [place] [address]Performed By: #### 02844-6 #### [facility] CLIA [id number] [address] [place] [address] [place] AMERICAMonocytes/100 WBC (Bld)10.4 %NormalSalem Regional Medical Center on above:Order Comment: Specimen Type: BLOOD SPECIMEN Ordering [facility] Address: [address] [place], [place] [address]Performed By: #### 86379-0 #### [facility] CLIA [id number] [address] [place] [address] [place] AMERICANeutrophils (Bld) [#/Vol] 4.62 10*3/uLNormal1.45-7.50[facility] on above:Order Comment: Specimen Type: BLOOD SPECIMEN Order[facility] Address: [address] [place], [place] [address]Performed By: #### 11417-1 #### [facility] CLIA [id number] [address] [place], [place] [address] [place] AMERICANeutrophils/100 WBC (Bld) 73.5 %NormalSalem Regional Medical Center on above:Order Comment: Specimen Type: BLOOD SPECIMEN Order[facility] Address: [address] [place], [place] [address]Performed By: #### 22294-4 #### [facility] CLIA [id number] [address] [place], [place] [address] [place] AMERICANucleated RBC (Bld) [#/Vol] 10*3/uLNormal<0.01[facility] on above:Order Comment: Specimen Type: BLOOD SPECIMEN Order[facility] Address: [address] [place], [place] [address]Performed By: #### 16624-1 #### [facility] CLIA [id number] [address] [place] [address] [place] AMERICANucleated RBC/100 WBC (Bld) [Ratio]0.0 /100 WBCNormalCKindred Healthcare on above:Order Comment: Specimen Type: BLOOD SPECIMEN Ordering [facility] Address: [address] [place], [place] [address]Performed By: #### 03849-2 #### [facility] CLIA [id number] [address] [place] [address] [place] AMERICAPlatelet mean volume (Bld) [Entitic vol]9.9 fLNormal9.0-12.7CKindred Healthcare on above: Order Comment: Specimen Type: BLOOD SPECIMEN Order[facility] Address: [address] [place], [place] [address]Performed By: #### 44268-4 #### [facility] [place] [id number] [address] [place] [address] [place] AMERICAPlatelets (Bld) [#/Vol]295 10*3/pWWwtomb466-725TojnsroulSalem Regional Medical Center on above:Order Comment: Specimen Type: BLOOD SPECIMEN Ordering [facility] Address: [address] [place], [place] [address]Performed By: #### 22475-0 #### [facility] CLIA [id number] [address] [place] [address] [place] AMERICARBC (Bld) [#/Vol]3.09 10*6/uLLow3.90-5.20[facility] on above:Order Comment: Specimen Type: BLOOD SPECIMEN Ordering [facility] Address: [address] [place], [place] [address]Performed By: #### 47304-3 #### [facility] CLIA [id number] [address] [place] [address] [place] AMERICAWBC (Bld) [#/Vol]6.28 10*3/uLNormal3.70-11.00[facility] on above:Order Comment: Specimen Type: BLOOD SPECIMEN Ordering [facility] Address: [address] [place], [place] [address]Performed By: #### 39869-8 #### [facility] CLIA [id number] [address] [place], [place] [address]Comprehensive metabolic 2000 panelon 95-65-1537Jqrsiyf [Mass/Vol]3.7 g/dLLow3.9-4.9CKindred Healthcare on above:Order Comment: Specimen Type: BLOOD SPECIMEN Ordering Facility[facility] Address: [address] [place], [place] [address]Performed By: #### 73039-2 #### [facility] CLIA [id number] [address] [place] [address] 46746IVI [Catalytic activity/Vol]45 U/JHqkwcl09-491BcuhiaocwSalem Regional Medical Center on above:Order Comment: Specimen Type: BLOOD SPECIMEN Ordering [facility] Address: [address] [place], [place] [address]Performed By: #### 92208-3 #### [facility] CLIA [id number] [address] [place] [address] [id number] [Catalytic activity/Vol]10 U/LNormal7-38[facility] on above:Order Comment: Specimen Type: BLOOD SPECIMEN Order[facility] Address: [address] [place], [place] [address]Performed By: #### 27993-9 #### [facility] CLIA [id number] [address] [place], [place] [address]Seyjk gap [Moles/Vol]10 mmol/LNormal8-15[facility] on above:Order Comment: Specimen Type: BLOOD SPECIMEN Ordering Facility[facility] Address: [address] [place], [place] [address]Performed By: #### 67369-3 #### [facility] CLIA [id number] [address] [place], [place] [address]YYJ [Catalytic activity/Vol]16 U/TBzfroj15-37WcnjllwapSalem Regional Medical Center on above:Order Comment: Specimen Type: BLOOD SPECIMEN Ordering Facility[facility] Address: [address] [place], [place] [address]Performed By: #### 27056-8 #### [facility] CLIA [id number] [address] [place], [place] [address]Ximpjaisk [Mass/Vol]0.3 mg/dLNormal0.2-1.3CKindred Healthcare on above:Order Comment: Specimen Type: BLOOD SPECIMEN Order[facility] Address: [address] [place], [place] [address]Performed By: #### 60787-9 #### [facility] CLIA [id number] [address] [place], [place] [address]Mkyiunw [Mass/Vol]9.0 mg/dLNormal8.5-10.2CKindred Healthcare on above:Order Comment: Specimen Type: BLOOD SPECIMEN Order[facility] Address: [address] [place], [place] [address]Performed By: #### 79685-5 #### [facility] CLIA [id number] [address] [place], [place] [address]Zsvzvzau [Moles/Vol]101 mmol/RAqcrtb87-253DyueaaamiSalem Regional Medical Center on above:Order Comment: Specimen Type: BLOOD SPECIMEN [facility] Address: [address] [place], [place] [address]Performed By: #### 99896-0 #### [facility] CLIA [id number] [address] [place], [place] [address]DN0 [Moles/Vol]28 mmol/JAepypr66-18PugpmxmwhWooster Community Hospital Comment on above:Order Comment: Specimen Type: BLOOD SPECIMEN Order[facility] Address: [address] [place], [place] [address]Performed By: #### 61252-0 #### [facility] CLIA [id number] [address] [place] [address]Lvuyfhgjmd [Mass/Vol]1.64 mg/dLHigh0.58-0.96[facility] HospitalComment on above:Order Comment: Specimen Type: BLOOD SPECIMEN Order[facility] Address: [address] [place], [place] [address]Performed By: #### 81468-1 #### [facility] CLIA [id number] [address] [place] [address] 77201rKRWhe SerPlBld CKD-EPI 077169 mL/min/1.73m???Low>=60[facility] HospitalComment on above:Order Comment: Specimen Type: BLOOD SPECIMEN Order[facility] Address: [address] [place], [place] [address]Result Comment: Estimated Glomerular Filtration Rate (eGFR) is calculated using the 2020 CKD-EPI cre atinine equation. This equation utilizes serum creatinine, sex, and age as parameters. The creatinine assay has traceable calibration to isotope dilution- mass spectrometry. Refer to KDIGO guidelines for clinical interpretation. In patients with unstable renal function, e.g. those with acute kidney injury, the eGFR may not accurately reflect actual GFR.Performed By: #### 38730-1 #### [facility] CLIA [id number] [address] [place] [address]Djtqkrz [Mass/Vol]103 mg/fOCxgd38-95AzzcyekrcWooster Community Hospital Comment on above:Order Comment: Specimen Type: BLOOD SPECIMEN Ordering [facility] Address: [address] [place] [address]Djrjbq Comment: The [place] Diabetes Association (ADA) provides guidance for cutoff [...] Standards of Medical Care in Diabetes 2016, [place] [employer]. Diabetes Care. 2016.39(Suppl 1).Performed By: #### 37572-9 #### [facility] CLIA [id number] [address] [place] [address]Jacejoysy [Moles/Vol]4.7 mmol/LNormal3.7-5.1CKindred Healthcare on above:Order Comment: Specimen Type: BLOOD SPECIMEN Ordering Facility[facility] Address: [address] [place], [place] [address]Performed By: #### 91550-3 #### [facility] CLIA [id number] [address] [place] [address]Ofqcfdf [Mass/Vol]5.9 g/dLLow6.3-8.0[facility] Comment on above:Order Comment: Specimen Type: BLOOD SPECIMEN Ordering Facility[facility] Address: [address] [place], [place] [address]Performed By: #### 10269-0 #### [facility] CLIA [id number] [address] [place] [address] 17[address]Btgqyz [Moles/Vol]139 mmol/PEzndiw043-403BtarzadltSalem Regional Medical Center on above:Order Comment: Specimen Type: BLOOD SPECIMEN [facility] Address: [address] [id number] By: #### 03093-4 #### [facility] CLIA [id number] [address] [place], [place] [address]Serh nitrogen [Mass/Vol]32 mg/dLHigh7-21[facility] on above:Order Comment: Specimen Type: BLOOD SPECIMEN Order[facility] Address: [address] [place], [place] [address]Performed By: #### 87206-1 #### [facility] CLIA [id number] [address] [place] [address]FRR SerPl-aCncon 57-59-6620Mglxcrgieqwbde (EPO) Qn26.4 mIU/mL High2.6-18.5CKindred Healthcare on above:Order Comment: Specimen Type: BLOOD SPECIMEN [facility] Address: [address] [place], [place] [address]Performed By: #### 65311-4 #### [facility] [place] [id number] [address] [place] [address] [place] AMERICAEosinophils/100 WBC Auto (Bld)Ordered By: Valentin Abhyankar on 15-05-7595Garsgllrjyb/100 WBC (Bld)2.5 % [facility] HospitalErythrocyte distribution width Auto (RBC) [Ratio]Ordered By: Valentin Abhyankar on 40-41-1342Wlkaxozczxo distribution width (RBC) [Ratio]13.5 %11.5-15.0[facility] Rehabilitation HospitalFerritin SerPl-mCnc on 35-11-7107Vponqsll [Mass/Vol]174.0 ng/pKChpcux97.7-205.1CKindred Healthcare on above:Order Comment: Specimen Type: BLOOD SPECIMEN [facility] Facility[facility] Address: [address] [place], [place] [address]Performed By: #### 43176-8, 2284-8, 2132-9, 2276-4 #### [facility] [place] [id number] [address] [place] [address] [place] OF AMERICAFolate SerPl-mCncon 22-65-9983Svnjkn [Mass/Vol]17.5 ng/mLNormal>4.7CKindred Healthcare on above:Order Comment: Specimen Type: BLOOD SPECIMEN [facility] Address: [address] [place], [place] [address]Performed By: #### 17521-4, 2283-8, 9, 2275-4 #### [facility] CLIA [id number] [address] [place] [address] [id number] [place] [address] [facility]OWN HOSPITALGlomerular filtration rate [Volume Rate/Area] in Serum, Plasma or Blood by CreatinineOrdered By: Valentin Leonard on 99-89-2425Kezlxppani filtration rate [Volume Rate/Area] in Serum, Plasma or Blood by Ddjzxhkivf61 mL/min/1.73m???Low>=60[facility] HospitalCommackinac straits hospital on above:Estimated Glomerular Filtration Rate (eGFR) is calculated using the 2020 CKD-EPI creatinine equation. This equation utilizes serum creatinine, sex, and age as parameters. The creatinine assay has traceable calibration to isotope dilution-mass spectrometry. Refer to KDIGO guidelines for clinical interpretation. In patients with unstable renal function, e.g. those with acute kidney injury, the eGFRmay not accurately reflect actual GFR. Hematocrit Auto (Bld) [Volume fraction]Ordered By: Valentin Leonard on 07-15-2025 Hematocrit (Bld) [Volume fraction]27.6 %Low36.0-46.0[facility] HospitalHemoglobin [Mass/volume] in BloodOrdered By: Valentin Leonard on 07-15-2025 Hemoglobin (Bld) [Mass/Vol]8.9 g/dLLow11.5-15.5FUniversity Hospitals Health System Iron and Iron binding capacity panelon 90-63-8975Lcid [Mass/Vol]45 ug/dLNormal 41-186[facility] on above:Order Comment: Specimen Type: BLOOD SPECIMEN [facility] Address: [address] [place], [place] [address]Performed By: #### 02436-2, 2283-8, 2132-06, 2276-01 #### [facility] CLIA [id number] [address] [place], [place] [address] [place] OF AMERICAIron binding capacity [Mass/Vol]255 ug/kSEadvqo814-851ZvculxxzeSalem Regional Medical Center on above:Order Comment: Specimen Type: BLOOD SPECIMEN [facility] Address: [address] [place], [place] [address]Performed By: #### 48123-1, 2284-8, 2131-9, 6-4 #### [facility] CLIA [id number] [address] [place] [address] [place] AMERICAIron/TIBC [Molar ratio]17.6 %Cxsmkx45.0-57.0[facility] on above:Order Comment: Specimen Type: BLOOD SPECIMEN [facility] Address: [address] [place], [place] [address]Performed By: #### 74697-5, 2284-8, 2131-9, 2275-4 #### [facility] CLIA [id number] [address] [place], [place] [address] [place] AMERICAIron binding capacity [Mass/volume] in Serum or PlasmaOrdered By: Valentin Leonard on 84-52-6017Yopg binding capacity [Mass/Vol]255 ug/xI520-076QgbltdcniSelect Medical Trihealth Rehabilitation HospitalIron saturation [Mass Fraction] in Serum or PlasmaOrdered By: Valentin Abrebecca on 61-36-8183Zsyp saturation [Mass fraction]17.6 %15.0-57.0[facility] HospitalLaboratory - Chemistry and Chemistry - challengeOrdered By: Valentin Abhyankar on 38-20-4143Xhlkvno [Mass/Vol]3.7 g/dLLow3.9-4.9[facility] HospitalALP [Catalytic activity/Vol]45 U/W92-053IgevrndgnSelect Medical Trihealth Rehabilitation HospitalALT [Catalytic activity/Vol]10 U/L7-38[facility] HospitalAST [Catalytic activity/Vol]16 U/M49-30QanjdxhkeSelect Medical Trihealth Rehabilitation HospitalBilirubin [Mass/Vol]0.3 mg/dL0.2-1.3FUniversity Hospitals Health SystemCalcium [Mass/Vol]9.0 mg/dL8.5-10.2FUniversity Hospitals Health SystemChloride [Moles/Vol]101 mmol/L 98-107[facility] HospitalCO2 [Moles/Vol]28 mmol/U11-19EcejapgnySelect Medical Trihealth Rehabilitation HospitalCreatinine [Mass/Vol]1.64 mg/dLHigh0.58-0.96[facility] HospitalFerritin [Mass/Vol]174.0 ng/mL14.7-205.1FUniversity Hospitals Health SystemGlucose [Mass/Vol]103 mg/kFLely26-32FyeyagmkaSelect Medical Trihealth Rehabilitation HospitalComment on above:The [place] Diabetes Association (ADA) provides guidance for cutoff values for fasting glucose andrandom glucose. The ADA defines fasting as no caloric intake for at least 8 hours. Fasting plasma gl ucose results between 100 to 125 mg/dL indicate [...] diabetes.Reference: [employer] in Diabetes 2016, [place] Diabetes Association. Diabetes Care. 2016.39(Suppl 1).Iron [Mass/Vol]45 ug/xR51-536 [facility] HospitalPotassium [Moles/Vol]4.7 mmol/L3.7-5.1FGenesis Hospitalodium [Moles/Vol]139 mmol/B171-379RkwazshsxSelect Medical Trihealth Rehabilitation HospitalUrea nitrogen [Mass/Vol]32 mg/dLHigh7-21[facility] HospitalLaboratory - Chemistry and Chemistry - challengeOrdered By: Nathan Hathaway on 39-32-6182Dfzxohuwj (Vitamin B12) [Mass/Vol]1457 pg/hTTjoz962-3941TylaioavkSelect Medical Trihealth Rehabilitation HospitalLaboratory - Hematology and Cell countsOrdered By: Valentin Leonard on 09-86-6397Pwkzzuvxket (Bld) [#/Vol]0.16 10*3/uL<0.46[facility] HospitalImmature granulocytes (Bld) [#/Vol]0.03 10*3/uL<0.10 [facility] HospitalImmature granulocytes/100 WBC (Bld)0.5 % [facility] HospitalLeukocytes [#/volume] corrected for nucleated erythrocytes in Blood by Automated counOrdered By: Valentin Leonard on 07-15-2025 WBC corrected for nucl RBC Auto (Bld) [#/Vol]6.28 k/uL3.70-11.00[facility] HospitalLymphocytes Auto (Bld) [#/Vol]Ordered By: Valentin Leonard on 62-30-2043Uzrezsfomgc (Bld) [#/Vol]0.77 10*3/uLLow1.00-4.00[facility] HospitalLymphocytes/100 WBC Auto (Bld)Ordered By: Valentin Leonard on 94-88-3053Fzqkgswxdft/100 WBC (Bld)12.3 %[facility] MCH Auto (RBC) [Entitic mass]Ordered By: Valentin Leonard on 52-76-2746RHV (RBC) [Entitic mass]28.8 pg26.0-34.0[facility] HospitalMCHC Auto (RBC) [Mass/Vol]Ordered By: Valentin Leonard on 04-41-0515MCTX (RBC) [Mass/Vol]32.2 g/dL30.5-36.0[facility] HospitalMCV Auto (RBC) [Entitic vol] Ordered By: Valentin Leonard on 87-38-4791QFN (RBC) [Entitic vol]89.3 fL 80.0-100.0[facility] Hospital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 ANALYSISon 71-17-0058PHI82 L265P MUTATION RESULTNormalCKindred Healthcare on above:Order Comment: Specimen Type: BLOOD SPECIMEN [facility] Address: [address] [place], [place] [address]Result Comment: 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 ANALYSIS Laboratory Accession Number: [id number] Sample Type: Peripheral Blood Result: MYD88 L265P (c.794T>C, p.Utv973Yzx) detected with variant allele fraction (vaf) 0.98%. Interpretation: The MYD88 missense variant L265P (c.794T>C, p.Mci566Wnt) is present. L265P is highly characteristic of [...] presence or absence of the L265P (c.794T>C, p.Qgt030Uow; g.38920201; [id number]) variant (mutation) in MYD88 gene (NM_002468.4) using [...] clinical and morphologic presentation. References: 1) Nikkie LOPEZ, Cristhian ADAMS, Hannah R, et al. Oncogenically active MYD88 mutations in human lymphoma. Nature 2011. 470(8496):115-9. 2) Joya RIVAS, Anai WagonerJ, DW, James L, Mikey JR, Hsi ED: MYD88 L265P somatic mutation: its usefulness in the differential diagnosis of bone marrow involvement by B-cell lymphoproliferative disorders. Am J Clin Pathol. 2013. 140(3):387-94. 3) Obi SP, Spencer L, Todd G, et al. MYD88 L265P somatic mutation in Waldenstrom's macroglobulinemia. N Engl J Med. 2012. 367(0)485-33. 4) Gage WagonerQ, Juan J YS, Ariel LL, Tanya K. Toll-like receptors and cancer: MYD88 mutation and inflammation. Front Immunol. 2014 May 28;367(5):1-10. 5) Gabriel X, Li W, Maykel Q, et al. MYD88 L265P Mutation in Lymphoid Malignancies. Cancer Res. 2018. 78(10):4114-47. Disclaimer: This test was developed and its performance characteristics determined by [facility]'s Pathology and Laboratory Medicine Department. It has not been cleared or approved by the FDA. [facility]'s Pathology and Laboratory Medicine Department is regulated under CLIA as certified to perform high-complexity testing. This test is used for clinical purposes. It should not be regarded as investigational or for research. Test performed at [facility], [address] [place] [address]. CLIA Number: [id number] Interpretation performed by Natalee Bolanos, PhD, [facility] MED[facility] CENTERDPerformed By: #### 36730- 5 #### [facility] CLIA [id number] [address] [place] [address] [place] OF AMERICAMonocytes Auto (Bld) [#/Vol] Ordered By: Valentin Leonard on 40-40-8896Fokyjkqya (Bld) [#/Vol]0.65 10*3/uL <0.87[facility] HospitalMonocytes/100 WBC Auto (Bld)Ordered By: Valentin Leonard on 76-27-8237Jbrgekvzh/100 WBC (Bld)10.4 %[facility] HospitalNeutrophils Auto (Bld) [#/Vol]Ordered By: Valentin Abkatrinaankar on 74-39-9219Xcnquxzdcrw (Bld) [#/Vol]4.62 10*3/uL1.45-7.50[facility] HospitalNeutrophils/100 WBC Auto (Bld)Ordered By: Valentin Leonard on 91-69-3354Uvjrucdwtti/100 WBC (Bld)73.5 %[facility] HospitalNo Panel InformationOrdered By: Valentin Leonard on 89-61-5466Vfspay85.5 ng/mL>4.7 [facility] HospitalMYD88 L265P MutationSee commentSelect Medical Trihealth Rehabilitation HospitalComment on above: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 ANALYSISLaboratory Accession Number: [id number] Type: Peripheral BloodResult:MYD88 L265P (c.794T>C, p.Fjt244Lnn) detected with variant allelefraction (vaf) 0.98%.Interpr etation:The MYD88 missense variant L265P (c.794T>C, p.Ucm714Hpo) is present.L265P is highly characteristic of lymphoplasmacyticlymphoma/Waldenstrom's macroglobulinemia, where it is found in >90% ofcases. This abnormality may also be found in diffuse large B- celllymphomas and in a small percentage of other small B-cell neoplasmsincluding chronic lymphocytic leukemia and marginal zone lymphomas.Clinical and pathologic correlation is suggested.Methodology:DNA extracted from the specimen is interrogated for the presence orabsence of the L265P (c.794T>C, p.Kva449You; g.03186003; [id number])variant (mutation) in MYD88 gene (NM_002468.4) using droplet digitalpolymerase chain reaction (PCR). Droplet digital PCR includespartitioning of DNA into droplets, droplet independent PCR,interrogation using allele specific hydrolysis probes, and analysis ofdroplets using Poisson distribution to calculate the copy number ofMYD88 L265P and wild-type MYD88. The reference genome used liPUKq69/hg38.Limitations:This test is designed to detect the L265P variant in the MYD88 gene.Uncommon variants or single nucleotide polymorphisms may affectbinding of probes or primers and may rarely result in false negative,false positive, or indeterminate results. Other variants in MYD88 willnot be identifiedby this test. The lower limit of detection of thisassay is approximately 0.5% variant allele fraction (vaf) for ncsJUV69 L265P variant. Although vaf is provided for reference, thisvalue should be interpreted with caution as this test is intended forqualitative purposes and is not validated as a quantitative test. WixRNW50 L265P result cannot be used on a standalone basis for diagnosisof lymphoplasmacytic lymphoma and needs to be considered in thecontext of clinical and morphologic presentation.References:1) Nikkie VN, Cristhian RM, Hannah R, et al. Oncogenically active NTG64ygfwroobv in human lymphoma. Nature 2011. 470(6841):115-9.2) Joya SL, Anai WagonerJ, DW, James L, Mikey JR, Nash ED: [id number] somatic mutation: its usefulness in the differential diagnosisof bone marrow involvement by B-cell lymphoproliferative disorders. AmJ Clin Pathol. 2013. 140(3):387-94.3) Obi SP, Spencer L, Brooks G,et al. 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 N Engl J Med. 2012. 367(6)356-33.4) Almonte JQ, Juan J YS, Ariel LL, Horcait K. Toll-like receptorsand cancer: MYD88 mutation and inflammation. Front Immunol. 2014 ;367(5):1-10.5) Nery X, Francy W, Maykel Q, et al. 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 Cancer Res. 2018. 78(10):4338-59.Disclaimer:This test was developed and its performance characteristics determinedby [facility]'s Pathology and Laboratory Medicine Department. Ithas not been cleared or approved by the FDA. [facility]'s[facility] Department is regulated under CLIAas certified to perform high-complexity testing. Thistest is used forclinical purposes. It should not be regarded as investigational or forresearch.Testperformed at [facility], [facility] [place] [address]. CLIA Number: [id number] performed by Natalee Bolanos, PhD, HCLDNucleated RBC Auto (Bld) [#/Vol]Ordered By: Valentin Leonard on 61-47-4249Kwujqpeum RBC (Bld) [#/Vol]10*3/uL<0.01[facility] HospitalNucleated erythrocytes [Presence] in Blood by Automated count Ordered By: Valentin Leonard on 17-57-7149Cxgxtaouo RBC Auto Ql (Bld)0.0 /100{WBC}[facility] HospitalPlatelet mean volume Auto (Bld) [Entitic vol]Ordered By: Valentin Leonard on 06-12-2497Yijdmzyo mean volume (Bld) [Entitic vol]9.9 fL9.0-12.7FUniversity Hospitals Health SystemPlatelets Auto (Bld) [#/Vol]Ordered By: Valentin Leonard on 81-40-4108Tqhhuwhvk (Bld) [#/Vol]295 10*3/pW165-364OoixbueupSelect Medical Trihealth Rehabilitation HospitalProtein [Mass/volume] in Serum or PlasmaOrdered By: Valentin Leonard on 06-57-3455Utirfkb [Mass/Vol]5.9 g/dLLow 6.3-8.0[facility] HospitalRBC Auto (Bld) [#/Vol]Ordered By: Valentin Leonard on 71-50-7362DFW (Bld) [#/Vol]3.09 10*6/uLLow3.90-5.20[facility]ron Generalerum or plasma anion gap determinationOrdered By: Valentin Leonard on 94-99-7438Lhtab gap [Moles/Vol]10 mmol/L8-15[facility]ron Generalerum or plasma erythropoietin (EPO) measurement (units/volume) Ordered By: Valentin Leonard on 33-93-6263Tqzbxmktgomohf (EPO) Qn26.4 mIU/mLHigh 2.6-18.5FUniversity Hospitals Health SystemVit B12 SerPl-mCncon 07-15-2025 Cobalamin (Vitamin B12) [Mass/Vol]1457 pg/wZHeyv095-3183FimwitexxDayton Children's HospitalCommackinac straits hospital on above:Order Comment: Specimen Type: BLOOD SPECIMEN [facility] Address: [address] [place] [address]Errbdgxwk By: #### 56479-1, 2284-8, 2132-9, 2276-4 #### [facility] CLIA [id number] [address] [place], [place] [address] [place] STATES OF [facility] HOSPITALCNPNon [id number] Telephone (NCCAP) LASHAUN JOAQUIN ([id number]) 1940 F Date Time Provider Department 07/10/25 VALENTIN LEONARD NCCAP During your visit today, we recorded the [...] Hathaway's office Please return the call at [phone] KERRY Menendez Felicia, RN 07/10/2025 12:07 PM [...] Unknown AMLODIPINE 07/27/2021 16 - Unknown BACTRIM (SULFAMETHOXAZOLE-TRIMETH*07/27/2021 16 - Unknown CHERATUSSIN AC (CODEINE-GUAIFENES*07/27/2021 16 - Unknown DOXYCYCLINE HYCLATE 07/27/2021 16 [...] (None) Encounter Status:Closed by YOLANDA COBIAN on 07/10/25NoalCDayton Children's HospitalAlbumin [Mass/volume] in Serum or PlasmaOrdered By: Nathan Hathaway on 97-78-9600Fdcofwc [Mass/Vol]3.33 g/dLLow3.43-5.41[facility] W Auto Differential panel (Bld)on 33-22-8949Byhtbkkjw (Bld) [#/Vol] 0.05 10*3/uLNormal<0.11CKindred Healthcare on above:Order Comment: Specimen Type: BLOOD SPECIMEN [facility] Address: [address] [place], [place] [address]Performed By: #### 24354-2 #### [facility] CLIA [id number] [address] [place] [address] [place] AMERICABasophils/100 WBC (Bld)0.9 % NormalSalem Regional Medical Center on above:Order Comment: Specimen Type: BLOOD SPECIMEN [facility] Address: [address] [place], [place] [address]Performed By: #### 23138-5 #### [facility] CLIA [id number] [address] [place] [address] [place] AMERICADifferential cell count method Nom (Bld)AutoNormalClevelFulton County Health Center on above:Order Comment: Specimen Type: BLOOD SPECIMEN [facility] Address: [address] [place], [place] [address]Performed By: #### 16769-9 #### [facility] CLIA [id number] [address] [place], [place] [address] [place] AMERICAEosinophils (Bld) [#/Vol] 0.18 10*3/uLNormal<0.46[facility] on above:Order Comment: Specimen Type: BLOOD SPECIMEN [facility] Address: [address] [place], [place] [address]Performed By: #### 35143-0 #### [facility] CLIA [id number] [address] [place] [address] [place] AMERICAEosinophils/100 WBC (Bld)3.3 %NormalSalem Regional Medical Center on above:Order Comment: Specimen Type: BLOOD SPECIMEN [facility] Address: [address] [place], [place] [address]Performed By: #### 59661-7 #### [facility] CLIA [id number] [address] [place] [address] [place] AMERICAErythrocyte distribution width (RBC) [Ratio]13.5 %Wctqqi73.5-15.0[facility] on above:Order Comment: Specimen Type: BLOOD SPECIMEN [facility] Address: [address] [place], [place] [address]Performed By: #### 91204-6 #### [facility] CLIA [id number] [address] [place] [address] [place] AMERICAHematocrit (Bld) [Volume fraction]27.8 %Low36.0-46.0[facility] on above:Order Comment: Specimen Type: BLOOD SPECIMEN [facility] Address: [address] [place], [place] [address]Performed By: #### 98383-1 #### [facility] CLIA [id number] [address] [place] [address] [place] AMERICAHemoglobin (Bld) [Mass/Vol] 9.0 g/dLLow11.5-15.5CKindred Healthcare on above:Order Comment: Specimen Type: BLOOD SPECIMEN [facility] Address: [address] [place], [place] [address]Performed By: #### 17174-7 #### [facility] CLIA [id number] [address] [place] [address] [place] AMERICAImmature granulocytes (Bld) [#/Vol]0.03 10*3/uLNormal<0.10[facility] on above:Order Comment: Specimen Type: BLOOD SPECIMEN [facility] Address: [address] [place], [place] [address]Performed By: #### 80419-5 #### [facility] CLIA [id number] [address] [place] [address] [place] AMERICAImmature granulocytes/100 WBC (Bld)0.5 %NormalSalem Regional Medical Center on above:Order Comment: Specimen Type: BLOOD SPECIMEN [facility] Address: [address] [place], [place] [address]Performed By: #### 35866-6 #### [facility] CLIA [id number] [address] [place] [address] [place] AMERICALymphocytes (Bld) [#/Vol] 0.87 10*3/uLLow1.00-4.00[facility] on above:Order Comment: Specimen Type: BLOOD SPECIMEN [facility] Address: [address] [place], [place] [address]Performed By: #### 27681-5 #### [facility] CLIA [id number] [address] [place] [address] [facility]OWN HOSPITALLymphocytes/100 WBC (Bld) 15.9 %NormalSalem Regional Medical Center on above:Order Comment: Specimen Type: BLOOD SPECIMEN [facility] Address: [address] [place], [place] [address]Performed By: #### 64005-7 #### [facility] CLIA [id number] [address] [place] [address] (RBC) [Entitic mass]28.8 bqBgktch80.0-34.0[facility] on above:Order Comment: Specimen Type: BLOOD SPECIMEN [facility] Address: [address] [place], [place] [address]Performed By: #### 18217-2 #### [facility] CLIA [id number] [address] [place] [address] (RBC) [Mass/Vol]32.4 g/pJEplcdp99.5-36.0[facility] on above:Order Comment: Specimen Type: BLOOD SPECIMEN [facility] Address: [address] [place], [place] [address]Performed By: #### 32745-9 #### [facility] CLIA [id number] [address] [place] [address] [place] AMERICAMCV (RBC) [Entitic vol]89.1 aPIaocxk31.0-100.0[facility] on above:Order Comment: Specimen Type: BLOOD SPECIMEN [facility] Address: [address] [place], [place] [address]Performed By: #### 06012-7 #### [facility] [place] [id number] [address] [place] [address] [place] AMERICAMonocytes (Bld) [#/Vol]0.61 10*3/uLNormal<0.87[facility] on above:Order Comment: Specimen Type: BLOOD SPECIMEN [facility] Address: [address] [place], [place] [address]Performed By: #### 37639-6 #### [facility] CLIA [id number] [address] [place] [address] [place] AMERICAMonocytes/100 WBC (Bld)11.2 %NormalSalem Regional Medical Center on above:Order Comment: Specimen Type: BLOOD SPECIMEN [facility] Address: [address] [place], [place] [address]Performed By: #### 52061-9 #### [facility] CLIA [id number] [address] [place] [address] [place] AMERICANeutrophils (Bld) [#/Vol] 3.72 10*3/uLNormal1.45-7.50[facility] on above:Order Comment: Specimen Type: BLOOD SPECIMEN [facility] Address: [address] [place], [place] [address]Performed By: #### 09496-0 #### [facility] CLIA [id number] [address] [place] [address] [place] AMERICANeutrophils/100 WBC (Bld) 68.2 %NormalSalem Regional Medical Center on above:Order Comment: Specimen Type: BLOOD SPECIMEN [facility] Address: [address] [place], [place] [address]Performed By: #### 38213-3 #### [facility] CLIA [id number] [address] [place] [address] [place] AMERICANucleated RBC (Bld) [#/Vol] 10*3/uLNormal<0.01[facility] on above:Order Comment: Specimen Type: BLOOD SPECIMEN [facility] Address: [address] [place], [place] [address]Performed By: #### 70691-0 #### [facility] CLIA [id number] [address] [place] [address] [place] AMERICANucleated RBC/100 WBC (Bld) [Ratio]0.0 /100 WBCNormalCKindred Healthcare on above:Order Comment: Specimen Type: BLOOD SPECIMEN [facility] Address: [address] [place], [place] [address]Performed By: #### 16685-8 #### [facility] CLIA [id number] [address] [place] [address] [place] AMERICAPlatelet mean volume (Bld) [Entitic vol]9.5 fLNormal9.0-12.7CKindred Healthcare on above: Order Comment: Specimen Type: BLOOD SPECIMEN [facility] Address: [address] [place], [place] [address]Performed By: #### 86383-0 #### [facility] CLIA [id number] [address] [place] [address] [place] OF AMERICAPlatelets (Bld) [#/Vol]275 10*3/hLDbydsm328-785EanaamfnuSalem Regional Medical Center on above:Order Comment: Specimen Type: BLOOD SPECIMEN [facility] Facility[facility] Address: [address] [place], [place] [address]Performed By: #### 78219-2 #### [facility] CLIA [id number] [address] [place], [place] [address]RB (Bld) [#/Vol]3.12 10*6/uLLow3.90-5.20[facility] on above:Order Comment: Specimen Type: BLOOD SPECIMEN [facility] Facility[facility] Address: [address] [place], [place] [address]Performed By: #### 99168-4 #### [facility] CLIA [id number] [address] [place], [place] [address]WBC (Bld) [#/Vol]5.46 10*3/uLNormal3.70-11.00[facility] on above:Order Comment: Specimen Type: BLOOD SPECIMEN [facility] Facility[facility] Address: [address] [place], [place] [address]Performed By: #### 85893-5 #### [facility] CLIA [id number] [address] [place], [place] [address]CNOVSPon 24-24-9960APXPAN Visit (SP) Office ([place]) LASHAUN JOAQUIN ([id number]) 1940 F Date Time Provider Department 07/08/25 10:00 AM PAOLO CASILLAS During your visit today, we recorded the following information about you: Temperature Pulse Respiration Blood pressure 96.8 degrees 66/minute 18/minute 178/68 Weight Height 91.8 kg 1.664 m Paolo Casillas APRN.HOME MANAGEMENT SUPERVISOR 07/10/2025 6:42 PM Signed PATIENT NAME: Lashaun [...] HISTORY: FAMILY HISTORY Proble (more content not included)...NormalWooster Community HospitalCNPNon 36-15-1433QEYEFjwycwhjr (ASIYA) LASHAUN JOAQUIN ([id number]) 1940 F Date Time Provider Department 07/08/25 PAOLO CASILLAS During your visit today, we recorded the following information about you: Bessie SabnioKayla Kg 07/08/2025 11:24 AM Signed Please call Her daughter Marianna with today's lab results. [phone] Yolanda Cobian RN 07/10/2025 9:17 AM Signed Labs still pending. YORDAN Arambula Felicia, RN 07/10/2025 2:12 PM Signed Refer to providers phone encounter for details of follow up/intervention Yolanda Cobian RN Allergies As of Date: 07/08/2025 Noted Allergy Reaction ALLOPURINOL 11/05/2023 16 - Unknown AMLODIPINE 07/27/2021 16 - Unknown BACTRIM (SULFAMETHOXAZOLE-TRIMETH*07/27/2021 16 - Unknown CHERATUSSIN AC (CODEINE-GUAIFENES*07/27/2021 16 - Unknown DOXYCYCLINE HYCLATE 07/27/2021 16 [...] (None) Encounter Status:Closed by YOLANDA COBIAN on 07/10/25NormalCDayton Children's HospitalComprehensive metabolic 2000 panelon 08-27-3421Wyvinco [Mass/Vol]3.6 g/dLLow3.9-4.9CKindred Healthcare on above:Order Comment: Specimen Type: BLOOD SPECIMEN [facility] Address: [address] [place], [place] [address]Performed By: #### 98424-5 #### [facility] CLIA [id number] [address] [place] [address] [place] AMERICAALP [Catalytic activity/Vol] 48 U/GQobjmt29-921RhbmnbdlhSalem Regional Medical Center on above:Order Comment: Specimen Type: BLOOD SPECIMEN [facility] Address: [address] [place], [place] [address]Performed By: #### 64194-4 #### [facility] CLIA [id number] [address], [place] [address] [place] AMERICAALT [Catalytic activity/Vol] 13 U/LNormal7-38[facility] on above:Order Comment: Specimen Type: BLOOD SPECIMEN [facility] Address: [address] [place], [place] [id number] By: #### 91996-7 #### [facility] CLIA [id number] [address] [place] [address] [place] OF AMERICAAnion gap [Moles/Vol]11 mmol/LNormal8-15[facility] on above:Order Comment: Specimen Type: BLOOD SPECIMEN [facility] Address: [address] [place], [place] [address]Performed By: #### 81517-7 #### [facility] CLIA [id number] [address] [place], [place] [address] [place] AMERICAAST [Catalytic activity/Vol] 22 U/DUvgqgl89-45JbdvwfvqiSalem Regional Medical Center on above:Order Comment: Specimen Type: BLOOD SPECIMEN [facility] Address: [address] [place], [place] [address]Performed By: #### 80372-4 #### [facility] CLIA [id number] [address] [place] [address] [place] OF AMERICABilirubin [Mass/Vol]0.3 mg/dLNormal0.2-1.3CKindred Healthcare on above:Order Comment: Specimen Type: BLOOD SPECIMEN [facility] Address: [address] [place], [place] [address]Performed By: #### 00811-6 #### [facility] CLIA [id number] [address] [place] [address] [place] AMERICACalcium [Mass/Vol]8.9 mg/dL Normal8.5-10.2CKindred Healthcare on above:Order Comment: Specimen Type: BLOOD SPECIMEN [facility] Address: [address] [place], [place] [address]Performed By: #### 44527-9 #### [facility] CLIA [id number] [address] [place], [place] [address] [place] AMERICAChloride [Moles/Vol]106 mmol/LPhfgbs74-306AdljsafceSalem Regional Medical Center on above:Order Comment: Specimen Type: BLOOD SPECIMEN [facility] Address: [address] [place], [place] [address]Performed By: #### 58858-2 #### [facility] CLIA [id number] [address] [place], [place] [address] [place] AMERICACO2 [Moles/Vol]24 mmol/L Jleqhz07-99WuecucjqfSalem Regional Medical Center on above:Order Comment: Specimen Type: BLOOD SPECIMEN [facility] Address: [address] [place], [place] [address]Performed By: #### 51033-6 #### [facility] CLIA [id number] [address] [place] [address] [place] AMERICACreatinine [Mass/Vol]1.65 mg/dLHigh0.58-0.96[facility] on above:Order Comment: Specimen Type: BLOOD SPECIMEN [facility] Address: [address] [place], [place] [address]Performed By: #### 76977-9 #### [facility] CLIA [id number] [address] [place], [place] [address] [place] OF AMERICAeGFRcr SerPlBld CKD-EPI 2020 31 mL/min/1.73m???Low>=60[facility] on above:Order Comment: Specimen Type: BLOOD SPECIMEN [facility] Address: [address] [place], [place] [address]Result Comment: Estimated Glomerular Filtration Rate (eGFR) is calculated using the 2020 CKD-EPI cre atinine equation. This equation utilizes serum creatinine, sex, and age as parameters. The creatinine assay has traceable calibration to isotope dilution- mass spectrometry. Refer to KDIGO guidelines for clinical interpretation. In patients with unstable renal function, e.g. those with acute kidney injury, the eGFR may not accurately reflect actual GFR.Performed By: #### 55206-1 #### [facility] CLIA [id number] [address] [place] [address] [place] AMERICAGlucose [Mass/Vol]100 mg/dL Gapx68-36UsfdgkfywSalem Regional Medical Center on above:Order Comment: Specimen Type: BLOOD SPECIMEN [facility] Address: [address] [place], [place] [address]Result Comment: The [place] Diabetes Association (ADA) provides guidance for cutoff [...] Standards of Medical Care in Diabetes 2016, [place] [employer] Association. Diabetes Care. 2016.39(Suppl 1).Performed By: #### 77140-1 #### [facility] CLIA [id number] [address] [place], [place] [address] [place] AMERICAPotassium [Moles/Vol]5.3 mmol/LHigh3.7-5.1CKindred Healthcare on above:Order Comment: Specimen Type: BLOOD SPECIMEN [facility] Address: [address] [place], [place] [address]Performed By: #### 20530-7 #### [facility] [place] [id number] [address] [place], [place] [address] [place] AMERICAProtein [Mass/Vol]5.8 g/dL Low6.3-8.0[facility] on above:Order Comment: Specimen Type: BLOOD SPECIMEN [facility] Address: [address] [place], [place] [address]Performed By: #### 06623-9 #### [facility] CLIA [id number] [address] [place] [address] [place] AMERICASodium [Moles/Vol]141 mmol/L Vexkfx790-291UrzacsvzfSalem Regional Medical Center on above:Order Comment: Specimen Type: BLOOD SPECIMEN [facility] Address: [address] [place], [place] [address]Performed By: #### 57170-6 #### [facility] CLIA [id number] [address] [place] [address] [place] AMERICAUrea nitrogen [Mass/Vol]27 mg/dLHigh7-21[facility] on above:Order Comment: Specimen Type: BLOOD SPECIMEN [facility] Address: [address] [place], [place] [address]Performed By: #### 80533-0 #### [facility] CLIA [id number] [address] [place] [address] [place] AMERICAGlomerular filtration rate [Volume Rate/Area] in Serum, Plasma or Blood by CreatinineOrdered By: Nathan Hathaway on 22-63-3377Xnfaybcbda filtration rate [Volume Rate/Area] in Serum, Plasma or Blood by Hltcjyivwp61 mL/min/1.73m???Low>=60[facility] Comment on above:Estimated Glomerular Filtration Rate (eGFR) is calculated using the 2020 CKD-EPI creatinine equation. This equation utilizes serum creatinine, sex, and age as parameters. The creatinine assay has traceable calibration to isotope dilution-mass spectrometry. Refer to KDIGO guidelines for clinical inte rpretation. In patients with unstable renal function, e.g. those with acute kidney injury, the eGFRmay not accurately reflect actual GFR.IMMUNOFIXATION SCREEN, SERUMon 31-58-0242YZJBEXFETPDGOA (MPA)Poorly defined region of restricted mobility in IgM and kappa [...] further for monoclonal gammopathy. Clinical correlation is necessary.NormalSalem Regional Medical Center on above:Order Comment: Specimen Type: BLOOD SPECIMEN [facility] Address: [address] [place], [place] [address]Performed By: #### 64811-5 #### [facility] CLIA [id number] [address] [place] [address] [place] AMERICAMPA RESULTA poorly defined region of restricted mobility is present that may represent an M protein. AbnormalNo M protein is identified.[facility] on above: Order Comment: Specimen Type: BLOOD SPECIMEN [facility] Address: [address] [place], [place] [address]Performed By: #### 58123-1 #### [facility] CLIA [id number] [address] [place] [address] [place] OF AMERICASTAFF REVIEW ([facility])Reviewed by Dr. Jennifer [facility] on above:Order Comment: Specimen Type: BLOOD SPECIMEN [facility] Address: [address] [place], [place] [address]Performed By: #### 90364-2 #### [facility] CLIA [id number] [address] [place] [address] [place] AMERICAIMMUNOGLOBULINS,IGG,IGA,IGM on 40-64-6571HcZ [Mass/Vol]64 mg/sLVkr82-581ZrskvhuqtSalem Regional Medical Center on above:Order Comment: Specimen Type: BLOOD SPECIMEN [facility] Address: [address] [place], [place] [address]Performed By: #### SERIMM #### [facility] CLIA [id number] [address] [place], [place] [address] [place] AMERICAIgG [Mass/Vol]280 mg/dLLow 700-1600[facility] on above:Order Comment: Specimen Type: BLOOD SPECIMEN [facility] Address: [address] [place], [place] [address]Performed By: #### SERIMM #### [facility] CLIA [id number] [address] [place] [address] [place] AMERICAIgM [Mass/Vol]317 mg/dLHigh 40-230[facility] on above:Order Comment: Specimen Type: BLOOD SPECIMEN [facility] Address: [address] [place], [place] [address]Performed By: #### SERIMM #### [facility] CLIA [id number] [address] [place] [address] [place] AMERICAIgA [Mass/volume] in Serum or PlasmaOrdered By: Fanny Bedoya on 91-76-6856WhT [Mass/Vol]64 mg/cQLmn36-531 [facility] HospitalIgG [Mass/volume] in Serum or PlasmaOrdered By: Fanny Bedoya on 16-86-9940YwC [Mass/Vol]280 mg/jCUll715-7216VvrowttczSelect Medical Trihealth Rehabilitation HospitalIgM [Mass/volume] in Serum or PlasmaOrdered By: Fanny Bedoya on 77-72-7183CiG [Mass/Vol]317 mg/sOJsij67-926QjdvukmcmSelect Medical [facility]health [facility] Hospital Immunoglobulin light chains.kappa.free [Mass/volume] in SerumOrdered By: Nathan Hathaway on 61-76-4819Dzlxzmujkhxfdk light chains.kappa.free (S) [Mass/Vol] 300.9 mg/LHigh3.3-19.4FUniversity Hospitals Health SystemComment on above:Rarely, increased serum free light chains levels may not be detected or accurately quantified due to prozone phenomenon or in high viscosity samples using this immunoturbidimetric assay. Correlation with other laboratory results and clinical findings is recommended. The [place] Free Light Chain was performed using the Binding Site Optilite immunoturbidimetric method. Result obtained with different assay methods or kits cannot be used interchangeably.Immunoglobulin light chains.kappa.free/Immunoglobulin light chains.lambda.free [MassOrdered By: Nathan Hathaway on 02-37-0851Gyhecgbudnidkd light chains.kappa.free/Immunoglobulin light chains.lambda.free (S) [Mass ratio]12.64 High0.26-1.65[facility] HospitalImmunoglobulin light chains.lambda.free [Mass/volume] in Serum or PlasmaOrdered By: Nathan Hathaway on 68-82-6496Ldtbiamloagpth light chains.lambda.free [Mass/Vol]23.8 mg/L5.7-26.3 [facility] HospitalComment on above:Rarely, increased serum free light chains levels may not be detected or accurately quantified due to prozone phenomenon or in high viscosity samples using this immunoturbidimetric assay. Correlation with other laboratory results and clinical findings is recommended. The [place] Free Light Chain was performed using the Binding Site Optilite immunoturbidimetric method. Result obtained with differentassay methods or kits cannot be used interchangeably.KAPPA/BOWLES,FREE,SERon 00-68-2752Qsyeunptvlqfxc light chains.kappa.free (S) [Mass/Vol]300.9 mg/LHigh3.3-19.4CKindred Healthcare on above:Order Comment: Specimen Type: BLOOD SPECIMEN [facility] Address: [address] [place], [place] [address]Result Comment: Rarely, increased serum free light chains levels may not be detected or accurately quantified due to prozone phenomenon or in high viscosity samples using this immunoturbidimetric assay. Correlation with other laboratory results and clinical findings is recommended. The [place] Free Light Chain was performed using the Binding Site Optilite immunoturbidimetric method. Result obtained with different assay methods or kits cannot be used interchangeably.Performed By: #### KLFRS #### [facility] CLIA [id number] [address] [place] [address] [place] AMERICAImmunoglobulin light chains.kappa/Immunoglobulin light chains.lambda (S) [Mass ratio]12.64High 0.26-1.65[facility] on above:Order Comment: Specimen Type: BLOOD SPECIMEN [facility] Address: [address] [place], [place] [address]Performed By: #### KLFRS #### [facility] CLIA [id number] [address] [place] [address] [place] AMERICAImmunoglobulin light chains.lambda.free [Mass/Vol]23.8 mg/LNormal5.7-26.3CDayton Children's Hospital Comment on above:Order Comment: Specimen Type: BLOOD SPECIMEN [facility] Address: [address] [place], [place] [address]Result Comment: Rarely, increased serum free light chains levels may not be detected or accurately quantified due to prozone phenomenon or in high viscosity samples using this immunoturbidimetric assay. Correlation with other laboratory results and clinical findings is recommended. The L[place] Free Light Chain was performed using the Binding Site Optilite immunoturbidimetric method. Result obtained with different assay methods or kits cannot be used interchangeably.Performed By: #### KLFRS #### [facility] CLIA [id number] [address] [place] [address] [place] AMERICALaboratory - Chemistry and Chemistry - challengeOrdered By: Nathan Hathaway on 87-34-6721Qklogby [Mass/Vol] 3.6 g/dLLow3.9-4.9[facility] HospitalALP [Catalytic activity/Vol] 48 U/Q93-935RjykovwffSelect Medical Trihealth Rehabilitation HospitalALT [Catalytic activity/Vol]13 U/L 7-38[facility] HospitalAST [Catalytic activity/Vol]22 U/L13-35 [facility] HospitalBilirubin [Mass/Vol]0.3 mg/dL0.2-1.3FUniversity Hospitals Health SystemCalcium [Mass/Vol]8.9 mg/dL8.5-10.2FUniversity Hospitals Health SystemChloride [Moles/Vol]106 mmol/Y78-277ZfbiaikcbSelect Medical Trihealth Rehabilitation HospitalCO2 [Moles/Vol]24 mmol/H25-31QdsmtgbfwSelect Medical Trihealth Rehabilitation HospitalCreatinine [Mass/Vol]1.65 mg/dLHigh0.58-0.96[facility] HospitalGlucose [Mass/Vol]100 mg/oJBmbq41-37IokxromtfSelect Medical Trihealth Rehabilitation HospitalComment on above: The [place] Diabetes Association (ADA) provides guidance for cutoff [...] diabetes.Reference: Standardsof Medical Care in Diabetes 2016, [place] Diabetes Association. Diabetes Care. 2016.39(Suppl 1).Potassium [Moles/Vol]5.3 mmol/LHigh3.7-5.1FUniversity Hospitals Health SystemProtein [Mass/Vol]0.00 g/dL<=0.00[facility] Sodium [Moles/Vol]141 mmol/O542-973FdlopugakSelect Medical Trihealth Rehabilitation HospitalUrea nitrogen [Mass/Vol]27 mg/dLHigh7-21[facility] HospitalNo Panel InformationOrdered By: Nathan Hathaway on 44-79-4808Xupiuxxovsgvim Interpretation [facility] HospitalLeuk/Lymph Sign Pathologist (Misc)Reviewed by Dr. Jennifer David [facility] Medical CenterMiscellaneous Test 6See commentSelect Medical Trihealth Rehabilitation HospitalComment on above:Not Applicable. Miscellaneous Test CommentReviewed by Dr. Jennifer David [facility] CenterProtein Electrophoresis InterpretSelect Medical Trihealth Rehabilitation Hospital Protein Electrophoresis NoteNo definitive M protein is identified on protein electrophoresis.No definitive M protein is identified on protein electrophoresis.[facility] Generalerum ImmunofixationAbnormalNo M protein is identified.[facility] HospitalPROTEIN ELECTROPHORESIS SERUM (P)on 96-26-2265Jvpupam [Mass/Vol]3.33 g/dLLow3.43-5.41[facility] Cleparma community general hospitalComment on above:Order Comment: Specimen Type: BLOOD SPECIMEN [facility] Address: [address] [place], [place] [address]Performed By: #### 14431-9 #### [facility] CLIA [id number] [address] [place] [address] [place] AMERICAAlpha 1 globulin Elph [Mass/Vol]0.42 g/dLNormal0.18-0.43[facility] on above: Order Comment: Specimen Type: BLOOD SPECIMEN [facility] Address: [address] [place], [place] [address]Performed By: #### 55523-4 #### [facility] CLIA [id number] [address] [place] [address] [place] AMERICAAlpha 2 globulin Elph [Mass/Vol]0.86 g/dLNormal0.42-0.98[facility] on above: Order Comment: Specimen Type: BLOOD SPECIMEN [facility] Address: [address] [place], [place] [address]Performed By: #### 03991-2 #### [facility] CLIA [id number] [address] [place] [address] [place] AMERICABeta globulin Elph [Mass/Vol]0.53 g/dLLow0.61-1.17[facility] on above:Order Comment: Specimen Type: BLOOD SPECIMEN [facility] Address: [address] [place], [place] [address]Performed By: #### 78674-2 #### [facility] CLIA [id number] [address] [place] [address] [place] AMERICAGamma globulin Elph [Mass/Vol]0.37 g/dLLow0.53-1.51[facility] on above:Order Comment: Specimen Type: BLOOD SPECIMEN [facility] Address: [address] [place], [place] [address]Performed By: #### 60006-5 #### [facility] CLIA [id number] [address] [place] [address] [place] AMERICAINTERPRETATION COMMENT FOR PROTEIN ELECTROPHORESISHypogammaglobulinemia is present, which can be seen in the setting of monoclonal gammopathy. If clinically indicated, monoclonal protein analysis and serum free light chain analysis are suggested to evaluate further for monoclonal gammopathy.NormalSalem Regional Medical Center on above:Order Comment: Specimen Type: BLOOD SPECIMEN [facility] Address: [address] [place], [place] [address]Performed By: #### 04738-3 #### [facility] CLIA [id number] [address] [place] [address] [place] AMERICAM-PROTEIN LOCATIONNormal [facility] on above:Order Comment: Specimen Type: BLOOD SPECIMEN [facility] Address: [address] [place], [place] [address]Result Comment: Not Applicable. Performed By: #### 45818-5 #### [facility] CLIA [id number] [address] [place] [address] [place] AMERICAProtein Fractions [Interp]No definitive M protein is identified on protein electrophoresis.NormalNo definitive M protein is identified on protein electrophoresis.[facility] on above:Order Comment: Specimen Type: BLOOD SPECIMEN [facility] Address: [address] [place], [place] [address]Performed By: #### 61403-8 #### [facility] CLIA [id number] [address] [place] [address] [place] AMERICAProtein.monoclonal Elph [Mass/Vol]0.00 g/dLNormal<=0.00[facility] on above:Order Comment: Specimen Type: BLOOD SPECIMEN [facility] Address: [address] [place], [place] [address]Performed By: #### 59757-7 #### [facility] CLIA [id number] [address] [place] [address] STATES OF AMERICASPE STAFF REVIEWReviewed by Dr. Jennifer David MDNoalCKindred Healthcare on above:Order Comment: Specimen Type: BLOOD SPECIMEN [facility] Address: [address] [place], [place] [address]Performed By: #### 52133-3 #### [facility] CLIA [id number] [address] [place] [address] [place] AMERICAProt SerPl-mCncon 07-08-2025 Protein [Mass/Vol]5.5 g/dLLow6.3-8.0[facility] on above: Order Comment: Specimen Type: BLOOD SPECIMEN [facility] Address: [address] [place], [place] [address]Performed By: #### 2885-2 #### [facility] CLIA [id number] [address] [place] [address] [place] AMERICAProtein [Mass/volume] in Serum or PlasmaOrdered By: Fanny Bedoya on 79-44-5633Ngylnaw [Mass/Vol]5.5 g/dL Low6.3-8.0[facility] Generalerum or plasma alpha 1 globulin measurement by electrophoresis (mass/volume)Ordered By: Nathan Hathaway on 76-60-5115Miyoq 1 globulin Elph [Mass/Vol]0.42 g/dL0.18-0.43[facility] Generalerum or plasma alpha 2 globulin measurement by electrophoresis (mass/volume)Ordered By: Nathan Hathaway on 90-58-5700Qchlk 2 globulin Elph [Mass/Vol]0.86 g/dL0.42-0.98[facility] Generalerum or plasma anion gap determinationOrdered By: Nathan Hathaway on 17-61-5948Jhbqx gap [Moles/Vol]11 mmol/L8-15[facility] Generalerum or plasma beta globulin measurement by electrophoresis (mass/volume)Ordered By: Nathan Hathaway on 76-61-9126Nigc globulin Elph [Mass/Vol]0.53 g/dLLow0.61-1.17[facility] Generalerum or plasma gamma globulin measurement by electrophoresis (mass/volume)Ordered By: Nathan Hathaway on 11-55-1702Nlzaa globulin Elph [Mass/Vol]0.37 g/dLLow0.53-1.51[facility] CNPNon 43-17-1538QIBXMgunjdeef (HEMASA) LASHAUN JOAQUIN ([id number]) 1940 F Date Time Provider Department 07/06/25 PAOLO CASILLAS During your visit today, we recorded the following information about you: Loree Rosado MA 07/06/2025 9:31 AM Signed Patient coming Sunday07/08/25 for follow up labs. Please add lab orders. Thanks. Loree Rosado MA Allergies As of Date: 07/06/2025 Noted Allergy Reaction ALLOPURINOL 11/05/2023 16 - Unknown AMLODIPINE 07/27/2021 16 - Unknown BACTRIM (SULFAMETHOXAZOLE-TRIMETH*07/27/2021 16 - Unknown CHERATUSSIN AC (CODEINE-GUAIFENES*07/27/2021 16 - Unknown DOXYCYCLINE HYCLATE 07/27/2021 16 [...] Date Reviewed: 11/07/2023 Reviewed by: Paolo Casillas APRN.HOME MANAGEMENT SUPERVISOR - Fully Assessed Reason for Visit: Lab Orders [0808] Cmt: nt Primary Visit Diagnosis:Abnormal SPEP [R77.8] Order(s):COMPLETE BLOOD COUNT AND DIFFERENTIAL [SQCBCDIF] Order #: [id number] FUTURE COMPREHENSIVE METABOLIC PANEL [SQCMP] Order #: [id number] FUTURE PROTEIN ELECTROPHORESIS SERUM W/INTERP [SQSEPG] Order #: [id number] FUTURE MONOCLONAL PROTEIN, SERUM (BLOOD) [SQSERMPA] Order #: [id number] FUTURE Prescriptions as of 07/06/2025 - carvedilol [...] (None) Encounter Status:Closed by FANNY BEDOYA on 07/06/25NoalCDayton Children's HospitalMicroalbumin [Mass/volume] in UrineOrdered By: Nathan Hathaway on 91-91-8461Xuwojcx DL <= 20 mg/L (U) [Mass/Vol]20.1 mg/dL<=30.0[facility] HospitalNo Panel InformationOrdered By: Nathan Hathaway on 28-66-1851Cwxit Random Cwygwmplhn19.52 mg/dL20.00-300.00[facility] HospitalUrine microalbumin/creatinine mass ratioOrdered By: Nathan Hathaway on 06-24-2025 Albumin/Creatinine DL <= 20 mg/L (U) [Mass ratio]237.8 mg/gHigh0.0-29.9[facility] HospitalComment on above:NO MICROALBUMINURIA 0-29 MG/GCLINICAL MICROALBUMINURIA 30-300 MG/GMACROALBUMINURIA >300 MG/GAlbumin [Mass/volume] in Serum or PlasmaOrdered By: Nathan Hathaway on 36-38-5606Jksfhgi [Mass/Vol]3.2 g/dL 2.9-4.4FUniversity Hospitals Health SystemBasophils Auto (Bld) [#/Vol]Ordered By: Nathan Hathaway on 95-48-8341Clrwmfecj (Bld) [#/Vol]0.0 10 3/uL0.0-0.1FUniversity Hospitals Health SystemBasophils/100 WBC Auto (Bld)Ordered By: Nathan Hathaway on 74-83-3511Mddfdfrrj/100 WBC (Bld)0.7 %0.2-2.0[facility] Cholesterol in LDL Calc [Mass/Vol]Ordered By: Nathan Hathaway on 06-23-2025 Cholesterol in LDL [Mass/Vol]60.2 mg/dLSelect Medical Trihealth Rehabilitation HospitalComment on above:<100 mg/dl HDIDVAM773-153 mg/dl NEAR OR ABOVE ATXHKJM954-108 mg/dl BORDERLINE PYHE135-480 mg/dl HIGH>190 mg/dl VERY HIGHCholesterol in VLDL Calc [Mass/Vol]Ordered By: Nathan Hathaway on 63-29-8567Nowshcatvqe in VLDL [Mass/Vol] 17.8 mg/dLSelect Medical Trihealth Rehabilitation HospitalEosinophils/100 WBC Auto (Bld)Ordered By: Nathan Hathaway on 19-49-0460Grckgzfssxa/100 WBC (Bld)2.7 %0.9-7.0[facility] HospitalErythrocyte distribution width Auto (RBC) [Ratio]Ordered By: Nathan Hathaway on 00-50-3290Ywhtdrjalhi distribution width (RBC) [Ratio]13.8 %11.0-15.0[facility] HospitalGlobulin Calc (S) [Mass/Vol]Ordered By: Nathan Hathaway on 06-24-6420Cfwuxhqi (S) [Mass/Vol]3.3 g/dLSelect Medical Trihealth Rehabilitation HospitalGlomerular filtration rate (GFR) estimation in non- AmericanOrdered By: Nathan Hathaway on 77-77-6785LZP/1.73 sq M.predicted among non-blacks MDRD (S/P/Bld) [Vol rate/Area]35 mL/min/{1.73_m2}Low>=60 mL/min/1.73m 2FUniversity Hospitals Health SystemHematocrit Auto (Bld) [Volume fraction]Ordered By: Nathan Hathaway on 83-89-3139Kzaftjrbrw (Bld) [Volume fraction]28.3 %Low 36.0-48.0[facility] HospitalHemoglobin [Mass/volume] in Blood Ordered By: Nathan Hathaway on 83-33-8089Rskshlibsn (Bld) [Mass/Vol]9.3 g/dLLow 12.0-16.0[facility] HospitalIgA [Mass/volume] in Serum or Plasma Ordered By: Nathan Hathaway on 20-75-0687XaZ [Mass/Vol]62 mg/xNQgdijhsd44-991 [facility] HospitalIgG [Mass/volume] in Serum or PlasmaOrdered By: Nathan Hathaway on 04-24-9936ZwE [Mass/Vol]330 mg/cZAnjsnpwz552-4460RefrqbkoySelect Medical Trihealth Rehabilitation HospitalIgM [Mass/volume] in Serum or PlasmaOrdered By: Nathan Hathaway on 59-87-6730ZmT [Mass/Vol]325 mg/pOHsaroexg89-215CxjvzcdmpSelect Medical [facility] Rehabilitation HospitalImmunoglobulin light chains.kappa.free [Mass/volume] in Serum Ordered By: Nathan Hathaway on 71-47-3907Hwyigafaczilom light chains.kappa.free (S) [Mass/Vol]224.6 mg/LAbnormal3.3-19.4FUniversity Hospitals Health System Immunoglobulin light chains.kappa.free/Immunoglobulin light chains.lambda.free [MassOrdered By: Nathan Hathaway on 87-57-1499Hmjtneagumutfx light chains.kappa.free/Immunoglobulin light chains.lambda.free (S) [Mass ratio]10.59 Abnormal0.26-1.65[facility] HospitalComment on above:Performed at: [address], [place] [id number] Director: Carlos Witt PhD, Phone: [phone] light chains.lambda.free [Mass/volume] in Serum or PlasmaOrdered By: Nathan Hathaway on 06-23-2025 Immunoglobulin light chains.lambda.free [Mass/Vol]21.2 mg/L5.7-26.3FUniversity Hospitals Health SystemIron binding capacity [Mass/volume] in Serum or Plasma Ordered By: Nathan Hathaway on 24-60-2952Vhsv binding capacity [Mass/Vol]245.0 ug/jWMez878.0-450.0[facility] HospitalIron saturation [Mass Fraction] in Serum or PlasmaOrdered By: Nathan Hathaway on 99-18-9590Ggyc saturation [Mass fraction]14.3 %[facility] HospitalLaboratory - Chemistry and Chemistry - challengeOrdered By: Nathan Hathaway on 45-71-9216LDB [Catalytic activity/Vol]47 U/M22-184YhzmehlqnSelect Medical Trihealth Rehabilitation HospitalALT [Catalytic activity/Vol]18 U/T14-85KelvhoxtlSelect Medical Trihealth Rehabilitation HospitalAST [Catalytic activity/Vol]18 U/X15-09EzrajhjvjSelect Medical Trihealth Rehabilitation HospitalBilirubin [Mass/Vol]0.5 mg/dL0.2-1.0[facility] HospitalCalcium [Mass/Vol]8.9 mg/dL8.5-10.1FUniversity Hospitals Health SystemChloride [Moles/Vol]104 mmol/L 98-107[facility] HospitalCholesterol [Mass/Vol]123 mg/dL<=200 [facility] HospitalCholesterol in HDL [Mass/Vol]45 mg/dL40-60 [facility] HospitalComment on above:> or =60 mg/dl - LOW CARDIOVASCULAR RISK<40 mg/dl - HIGH CARDIOVASCULAR RISKCO2 [Moles/Vol]30.2 mmol/L21.0-32.0[facility] HospitalCobalamin (Vitamin B12) [Mass/Vol]1089 pg/sH151-8507VwvcsmsqqSelect Medical Trihealth Rehabilitation HospitalComment on above: Performed at: - [facility] [address] [id number] Director: Carlos Witt PhD, Phone: [phone] [Mass/Vol]1.45 mg/dLHigh0.55-1.02[facility] HospitalFerritin [Mass/Vol]176.0 ng/mL8.0-252.0[facility] HospitalFree T4 [Mass/Vol]0.97 ng/dL 0.76-1.46[facility] HospitalGFR/1.73 sq M.predicted MDRD (S/P/Bld) [Vol rate/Area]42 mL/min/{1.73_m2}Low>=60 mL/min/1.73m 2FUniversity Hospitals Health SystemGlucose [Mass/Vol]94 mg/rZ63-814OgbhmbaobSelect Medical [facility]health Rehabilitation Hospital Iron [Mass/Vol]35.0 ug/dLLow50.0-170.0[facility] HospitalPotassium [Moles/Vol]4.3 mmol/L3.5-5.1FUniversity Hospitals Health SystemProtein [Mass/Vol] 0.2 g/dLAbnormalNot ObservedSelect Medical Trihealth Rehabilitation HospitalProtein [Mass/Vol] 6.5 g/dL6.4-8.2FGenesis Hospitalodium [Moles/Vol]142 mmol/L 136-145[facility] HospitalTriglyceride [Mass/Vol]89 mg/dL<=150 [facility] HospitalTSH Qn5.101 m[IU]/LHigh0.358-3.740[facility] HospitalUrea nitrogen [Mass/Vol]22.0 mg/dLHigh7.0-18.0[facility] HospitalUrea nitrogen/Creatinine [Mass ratio]15.2 mg/mgSelect Medical Trihealth Rehabilitation HospitalLaboratory - Hematology and Cell countsOrdered By: Nathan Hathaway on 61-04-4499Jfmvhwnh granulocytes/100 WBC (Bld)0.4 %0.0-0.5 [facility] HospitalLeukocytes [#/volume] corrected for nucleated erythrocytes in Blood by Automated counOrdered By: Nathan Hathaway on 06-23-2025 WBC corrected for nucl RBC Auto (Bld) [#/Vol]5.6 10 3/uL4.0-11.0[facility] HospitalLymphocytes Auto (Bld) [#/Vol]Ordered By: Nathan Hathaway on 28-05-5286Zupjkruovpa (Bld) [#/Vol]0.8 10 3/uLLow1.2-3.8[facility] HospitalLymphocytes/100 WBC Auto (Bld)Ordered By: Nathan Hathaway on 06-74-1479Rxzgmgibvdb/100 WBC (Bld)14.4 %Low20.5-60.0[facility] HospitalH Auto (RBC) [Entitic mass]Ordered By: Nathan Hathaway on 67-68-7063TVB (RBC) [Entitic mass]29.0 pg26.7-34.0[facility] HospitalMCHC Auto (RBC) [Mass/Vol]Ordered By: Nathan Hathaway on 84-58-1659EHZO (RBC) [Mass/Vol]32.9 g/dL29.9-35.2FUniversity Hospitals Health SystemMCV Auto (RBC) [Entitic vol] Ordered By: Nathan Hathaway on 12-37-2401PHY (RBC) [Entitic vol]88.2 fL81.0-99.0 [facility] HospitalMonocytes Auto (Bld) [#/Vol]Ordered By: Nathan Hathaway on 29-35-5057Qqlfagoaf (Bld) [#/Vol]0.5 10 3/uL0.3-0.8[facility] HospitalMonocytes/100 WBC Auto (Bld)Ordered By: Nathan Hathaway on 45-26-3728Mclxhixds/100 WBC (Bld)8.7 %1.7-12.0[facility] Neutrophils Auto (Bld) [#/Vol]Ordered By: Nathan Hathaway on 34-39-6791Drafjszndgh (Bld) [#/Vol]4.1 10 3/uL1.4-6.5FUniversity Hospitals Health SystemNeutrophils/100 WBC Auto (Bld)Ordered By: Nathan Hathaway on 03-64-9085Fhsoyqhdoru/100 WBC (Bld) 73.1 %43.0-75.0[facility] HospitalNo Panel InformationOrdered By: Nathan Hathaway on 20-74-7489Eimkqzrhqml # (Auto)0.2 10 3/uL0.0-0.7FUniversity Hospitals Health SystemFolate17.90 ng/mL8.60-58.90[facility] HospitalImmature Granulocyte # (Auto)0.02 10 3/uL0.00-0.03[facility] HospitalProtein Electrophoresis NoteComment.[facility] HospitalComment on above:Protein electrophoresis scan will follow via computer,mail, or 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.Platelet mean volume Auto (Bld) [Entitic vol] Ordered By: Nathan Hathaway on 89-55-1238Dhmizrmz mean volume (Bld) [Entitic vol] 10.2 fL9.5-13.5FUniversity Hospitals Health SystemPlatelets Auto (Bld) [#/Vol] Ordered By: Nathan Hathaway on 05-65-8156Duuzfcbxm (Bld) [#/Vol]270 10 3/jM655-344 [facility] HospitalProtein [Mass/volume] in Serum or PlasmaOrdered By: Nathan Hathaway on 27-27-2887Wxpqmfx [Mass/Vol]5.7 g/dLAbnormal6.0-8.5 [facility] HospitalRBC Auto (Bld) [#/Vol]Ordered By: Nathan Hathaway on 64-99-7187CRO (Bld) [#/Vol]3.21 10 6/uLLow4.20-5.40[facility] Generalerum globulin measurement (mass/volume)Ordered By: Nathan Hathaway on 98-16-8744Dohqwfip (S) [Mass/Vol]2.5 g/dL2.2-3.9[facility] Generalerum or plasma albumin/globulin mass ratioOrdered By: Nathan Hathaway on 57-37-2741Qcxpwyb/Globulin [Mass ratio]1.0 {ratio}[facility] HospitalAlbumin/Globulin [Mass ratio]1.3 {ratio}0.7-1.7FGenesis Hospitalerum or plasma alpha 1 globulin measurement by electrophoresis (mass/volume)Ordered By: Nathan Hathaway on 00-62-2533Oxajo 1 globulin Elph [Mass/Vol]0.3 g/dL0.0-0.4FGenesis Hospitalerum or plasma alpha 2 globulin measurement by electrophoresis (mass/volume)Ordered By: Nathan Hathaway on 59-18-0578Rgyrs 2 globulin Elph [Mass/Vol]1.0 g/dL0.4-1.0[facility] Generalerum or plasma anion gap determinationOrdered By: Nathan Hathaway on 14-84-4792Oangq gap [Moles/Vol]12.1 mmol/LFUniversity Hospitals Health System Serum or plasma beta globulin measurement by electrophoresis (mass/volume) Ordered By: Nathan Hathaway on 80-05-0601Hgby globulin Elph [Mass/Vol]0.7 g/dL 0.7-1.3FGenesis Hospitalerum or plasma gamma globulin measurement by electrophoresis (mass/volume)Ordered By: Nathan Hathaway on 12-77-5625Iicri globulin Elph [Mass/Vol]0.5 g/dL0.4-1.8[facility] Generalerum or plasma immunoelectrophoresis interpretationOrdered By: Nathan Hathaway on 44-21-3014Nwjzjwewuwcujd IEP [Interp]CommentAbnormal.[facility] HospitalComment on above:Immunofixation shows IgM monoclonal protein with kappalight chain specificity.Serum or plasma total cholesterol/high density lipoprotein (HDL) cholesterol mass ratOrdered By: Nathan Hathaway on 74-41-2846Fwpzcoouvas.total/Cholesterol in HDL [Mass ratio]2.7 {ratio}[facility] HospitalComment on above:3.3 - 4.4 LOW RISK4.4 - 7.1 AVERAGE RISK7.1 - 11.0 MODERATE RISK>11.0 HIGH RISKEstimated glomerular filtration rate (GFR) non- Americanon 84-83-1526BRU/1.73 sq M.predicted among non-blacks MDRD (S/P/Bld) [Vol rate/Area]Estimated glomerular filtration rate (GFR) non- AmericanLow>=60 mL/min/1.73m [address] [place], [place] [address]GFR/1.73 sq M.predicted among non-blacks MDRD (S/P/Bld) [Vol rate/Area]31 mL/min/{1.73_m2}Low>=60 mL/min/1.73m [address] [place] [address] Laboratory - Chemistry and Chemistry - challengeon 96-19-8221Edufttf [Mass/Vol] 8.9 mg/dL8.5-10.1FUniversity Hospitals Health SystemChloride [Moles/Vol]105 mmol/L 98-107[facility] HospitalCO2 [Moles/Vol]30.7 mmol/L21.0-32.0 [facility] HospitalCreatinine [Mass/Vol]1.60 mg/dLHigh0.55-1.02 [facility] HospitalGFR/1.73 sq M.predicted MDRD (S/P/Bld) [Vol rate/Area]37 mL/min/{1.73_m2}Low>=60 mL/min/1.73m 2FUniversity Hospitals Health SystemGlucose [Mass/Vol]112 mg/vLOyrt04-195NitxkpuhvSelect Medical Trihealth Rehabilitation Hospital Potassium [Moles/Vol]4.4 mmol/L3.5-5.1FGenesis Hospitalodium [Moles/Vol]145 mmol/L362-295OegtjcqasSelect Medical Trihealth Rehabilitation HospitalTSH Qn3.657 m[IU]/L 0.358-3.740[facility] HospitalUrea nitrogen [Mass/Vol]33.0 mg/dL High7.0-18.0[facility] HospitalUrea nitrogen/Creatinine [Mass ratio]20.6 mg/mgCleveland Clinic Akron Generalerum or plasma anion gap determinationon 22-68-3509Dabrh gap [Moles/Vol]Serum or plasma anion gap determinationSelect Medical Trihealth Rehabilitation HospitalAnion gap [Moles/Vol]13.7 mmol/L [facility] HospitalTRANSTHORACIC ECHO (TTE) COMPLETEon 03-17-2025 TRANSTHORACIC ECHO (TTE) [address], [address] [place] [address] TRANSTHORACIC ECHOCARDIOGRAM REPORT Patient Name: LASHAUN JEMAL Doherty Physician: [id number] Bryce Guy MD, [facility] Study Date: 03/17/2025 Ordering Provider: [id number] HOLDEN ROSADO MRN/PID: [id number] Fellow: Nurse: Date of /Age: 11 1940 [place] Ho[employer] Operator: Nicolasa taylor RDCS, RVT Gender Assigned at F Additional Staff: : Height: 165.10 cm Admit Date: Weight: 90.72 kg Admission Status: BSA / BMI: 1.98 m2 / 33.28 Department Location: [facility] kg/m2 Heart Rossy Blood Pressure: 120 /64 mmHg Study Type: TRANSTHORACIC ECHO (TTE) COMPLETE Diagnosis/ICD: Essential (primary) hypertension-I10; Palpitations-R00.2 Indication: CAD, PTCA-2022, Edema, Hyperlipidemia, Former Smoker CPT Codes: Echo Complete w Full Doppler-25624 Study Detail: The following Echo studies were performed: 2D, M-Mode, Doppler and color flow. PHYSICIAN INTERPRETATION: Left Ventricle: Left ventricular ejection fraction is normal, by visual estimate at 60-65%. There are no regional wall motion abnormalities. The left ventricular cavity size is normal. There is left ventricular concentric remodeling. Spectral Doppler shows a Grade II (pseudonormal pattern) of left v entricular diastolic filling with an elevated left atrial [...] normal. There is no indication of pulmonic valveregurgitation. Pericardium: No pericardial effusion noted. Aorta: The [...] VALVE: Normal Ranges: RV (more content not included)...[facility] HospitalAcanthocytes [Presence] in Blood by Light microscopyOrdered By: Jorge L Cruz on 61-76-3468Lsbavrhixpkk LM Ql (Bld)Acanthocytes [Presence] in Blood by Light microscopySelect Medical Trihealth Rehabilitation HospitalAlanine aminotransferase [Enzymatic activity/volume] in Serum or PlasmaOrdered By: Jorge L Cruz on 13-80-6894KUM [Catalytic activity/Vol]Alanine aminotransferase [Enzymatic activity/volume] in Serum or Plasma7-52[facility] HospitalAlbumin [Mass/volume] in Serum or Plasma by Bromocresol green (BCG) dye binding metho Ordered By: Jorge L Cruz on 47-68-7601Uielmat BCG dye [Mass/Vol]Albumin [Mass/volume] in Serum or Plasma by Bromocresol green (BCG) dye binding metho 3.5-5.7FUniversity Hospitals Health SystemAlkaline phosphatase [Enzymatic activity/volume] in Serum or PlasmaOrdered By: Jorge L Cruz on 02-12-2025 ALP [Catalytic activity/Vol]Alkaline phosphatase [Enzymatic activity/volume] in Serum or Eyyaea19-926VvwfkxspgSelect Medical Trihealth Rehabilitation HospitalAnisocytosis LM Ql (Bld) Ordered By: Jorge L Cruz on 62-63-6193Uarqaamejegq Ql (Bld)Anisocytosis [Presence] in Blood by Light microscopySelect Medical Trihealth Rehabilitation Hospital Aspartate aminotransferase [Enzymatic activity/volume] in Serum or PlasmaOrdered By: Jorge L Cruz on 44-07-4739KOP [Catalytic activity/Vol]Aspartate aminotransferase [Enzymatic activity/volume] in Serum or Yhxtfj61-55CiqyerdxmSelect Medical Trihealth Rehabilitation HospitalB-Type Natriuretic Peptideon 91-74-2621Xrxpzfdbehu peptide B (Bld) [Mass/Vol]246.0 pg/mLHigh5-100The [facility] Comment on above:Result Comment: PERFORMED BY: [facility] [address] [place] [address] PATHOLOGIST CLOTH DYER RAMEZ MONTES M.D.Performed By: #### SCAN CBC, CK, HS TROP, BNP, PT, PTT ####[facility] [address] Basophils Auto (Bld) [#/Vol]Ordered By: Jorge L Cruz on 33-19-6627Uzqigioki (Bld) [#/Vol]Automated basophil count0.0-0.2FUniversity Hospitals Health System Basophils/100 WBC Auto (Bld)Ordered By: Jorge L Cruz on 02-12-2025 Basophils/100 WBC (Bld)Automated basophil %.[facility] Bilirubin.total [Mass/volume] in Serum or PlasmaOrdered By: Jorge L Cruz on 62-53-6223Pgcohrjlu [Mass/Vol]Bilirubin.total [Mass/volume] in Serum or Plasma 0.3-1.0[facility] HospitalCalcium [Mass/volume] in Serum or Plasma Ordered By: Jorge L Cruz on 59-06-2362Qswzuaf [Mass/Vol]Calcium [Mass/volume] in Serum or Plasma8.6-10.3FUniversity Hospitals Health SystemCarbon dioxide, total [Moles/volume] in Serum or PlasmaOrdered By: Jorge L Cruz on 18-10-4613OS8 [Moles/Vol]Carbon dioxide, total [Moles/volume] in Serum or Ftufth50.0-31.0[facility] HospitalChloride [Moles/volume] in Serum or PlasmaOrdered By: Jorge L Cruz on 42-20-3125Kclmezvh [Moles/Vol] Chloride [Moles/volume] in Serum or Yexzoz98-963LixqmlhscSelect Medical Trihealth Rehabilitation HospitalComprehensive Metabolic Panelon 21-53-9647Lvcdxed [Mass/Vol]3.8 g/dLNormal 3.5-5.7The [facility] Physician GroupComment on above:Performed By: #### TSH3, CMP, MG #### [facility] [address] [place] [address] USAAlbumin/Globulin [Mass ratio]1.6 {ratio}NormalThe [facility] Physician Laird HospitalComment on above:Performed By: #### TSH3, CMP, MG #### [facility] [address] [place] [address] USAALP [Catalytic activity/Vol]43 U/YWxbckt64-530Xtk [facility] Physician GroupComment on above:Performed By: #### TSH3, CMP, MG #### [facility] [address] [place] [address] USAALT [Catalytic activity/Vol]14 U/LNormal7-52The [facility] Physician GroupComment on above:Performed By: #### TSH3, CMP, MG #### [facility] [address] [place] [id number] USAAnion gap [Moles/Vol]11.4 mmol/LNormal6.0-15.0The [facility] Physician GroupComment on above:Performed By: #### TSH3, CMP, MG #### [facility] [address] [place] [id number] USAAST [Catalytic activity/Vol]19 U/XDdrglo65-13Myq [facility] Physician GroupComment on above:Performed By: #### TSH3, CMP, MG #### [facility] [address] [place] [address] USABilirubin [Mass/Vol]0.4 mg/dLNormal0.3-1.0The [facility] Physician GroupComment on above:Performed By: #### TSH3, CMP, MG #### [facility] [address] [place] [address] USACalcium [Mass/Vol]9.1 mg/dLNormal8.6-10.3The [facility] Physician GroupComment on above:Performed By: #### TSH3, CMP, MG #### [facility] [address] [place] [address] USAChloride [Moles/Vol]107 mmol/AXuqgrc25-689Ofz [facility] Physician GroupComment on above:Performed By: #### TSH3, CMP, MG #### [facility] [address] [place] [address] USACO2 [Moles/Vol]27.7 mmol/EFbaxef23.0-31.0The [facility] Physician GroupComment on above:Performed By: #### TSH3, CMP, MG #### [facility] [address] [place] [address] USACreatinine [Mass/Vol]1.28 mg/dLHigh0.60-1.20The [facility] Physician GroupComment on above:Performed By: #### TSH3, CMP, MG #### [facility] [address] [place] [address] USACreatinine Clr Calc Gyagjziq61.75NoAlleghany Health Physician GroupComment on above:Performed By: #### TSH3, CMP, MG #### [facility] [address] [place] [address] USAEstimated GFR41.827 mL/MinNoAlleghany Health Physician GroupComment on above:Performed By: #### TSH3, CMP, MG #### [facility] [address] [place] [address] USAGlobulin (S) [Mass/Vol]2.4 g/dLNoAlleghany Health Physician GroupComment on above:Performed By: #### TSH3, CMP, MG #### [facility] [address] [place] [address] USAGlucose [Mass/Vol]102 mg/zIAkga51-402Dyg [facility] Physician GroupComment on above:Result Comment: Random Glucose Reference Range is dependent on time and content of last meal. Glucose of more than 200 mg/dL in a nonstressed, ambulatory subject supports the diagnosis of Diabetes Mellitus. ADA recommended reference rangePerformed By: #### TSH3, CMP, MG #### [facility] [address] [place] [address] USAPotassium [Moles/Vol]4.1 mmol/LNormal3.5-5.1The [facility] Physician GroupComment on above:Performed By: #### TSH3, CMP, MG #### [facility] [address] [place] [address] USAProtein [Mass/Vol]6.2 g/dLLow6.4-8.9The [facility] Physician GroupComment on above:Performed By: #### TSH3, CMP, MG #### [facility] [address] [place] [address] USASodium [Moles/Vol]142 mmol/QTmkstk841-539Mur [facility] Physician GroupComment on above:Performed By: #### TSH3, CMP, MG #### [facility] [address] [place] [address] USAUrea nitrogen [Mass/Vol]28 mg/dLHigh7-25The [facility] Physician GroupComment on above:Performed By: #### TSH3, CMP, MG #### [facility] [address] [place] [id number] USACreatine Kinaseon 45-94-6065WC [Catalytic activity/Vol]35 U/PQcdegs62-208Waq [facility] Physician GroupComment on above:Performed By: #### SCAN CBC, CK, HS TROP, BNP, PT, PTT ####[facility] [address] [place] [id number] USACreatine kinase [Enzymatic activity/volume] in Serum or PlasmaOrdered By: Jorge L Cruz on 40-67-8758UW [Catalytic activity/Vol] Creatine kinase [Enzymatic activity/volume] in Serum or Wktznl96-037YpscsuturSelect Medical Trihealth Rehabilitation HospitalCreatinine [Mass/volume] in Serum or PlasmaOrdered By: Jorge L Cruz on 26-31-1557Xnradsowvv [Mass/Vol]Creatinine [Mass/volume] in Serum or PlasmaHigh0.60-1.20[facility] Rehabilitation HospitalECG 12 lead ECGon 70-29-5373FTJ 12 lead ECGMETROHE[facility] [place] [address] Electrocardiograph Report Signed Patient: Lashaun Joaquin MR#: [id number] 99 : 1940 Acct:[id number] Age/Sex: 84 / F ADM Date: 02/12/25 Loc: ER Room: Type: [facility] ER Attending Dr: Ordering Provider: Jorge L [...] rhythm Confirmed by Jorge L CRUZ DO ([id number]) on 02/12/2025 10:52:00 AM Referred By: Electronically Signed By: Jorge L CRUZ DO Transcribed By: MUS Signed By Jorge L Cruz DO 0 02/12/25 [facility] Physician GroupEosinophils Auto (Bld) [#/Vol] Ordered By: Jorge L Cruz on 77-02-6946Bmnhumroglf (Bld) [#/Vol]Automated eosinophil count0.0-0.45Select [facility] Rehabilitation HospitalEosinophils/100 WBC Auto (Bld)Ordered By: Jorge L Cruz on 84-70-0743Eyrorqrppuf/100 WBC (Bld) Automated eosinophil %.[facility] Rehabilitation HospitalErythrocyte distribution width Auto (RBC) [Ratio]Ordered By: Jorge L Cruz on 63-16-1534Knoiisbjdhu distribution width (RBC) [Ratio]Erythrocyte distribution width [Ratio] by Automated count11.9-15.3FUniversity Hospitals Health SystemErythrocyte morphology finding [Identifier] in BloodOrdered By: Jorge L Cruz on 72-10-9838WVZ morphology finding Nom (Bld)RBC morphologySelect Medical Trihealth Rehabilitation Hospital Globulin Calc (S) [Mass/Vol]Ordered By: Jorge L Cruz on 18-11-6823Qbvkjswd (S) [Mass/Vol]Serum globulin measurement by calculation (mass/volume)[facility] Rehabilitation HospitalGlucose [Mass/volume] in Serum or PlasmaOrdered By: Jorge L Cruz on 43-53-9416Kwodtkl [Mass/Vol]Glucose [Mass/volume] in Serum or BdwxbnDcxj96-456ZhmyoafaaSelect Medical Trihealth Rehabilitation HospitalComment on above:ADA recommended reference rangeRandom Glucose Reference Range is dependent on time and content of last meal. Glucose of more than 200 mg/dL in a nonstressed, ambulatory subject supports the diagnosisof Diabetes Mellitus.Hematocrit Auto (Bld) [Volume fraction]Ordered By: Jorge L Cruz on 51-91-2313Pnwdjygesk (Bld) [Volume fraction]Hematocrit [Volume Fraction] of Blood by Automated count Low34.0-46.4FUniversity Hospitals Health SystemHemoglobin [Mass/volume] in Blood Ordered By: Jorge L Cruz 15-63-2899Hcruehvxgn (Bld) [Mass/Vol]Hemoglobin [Mass/volume] in NpclbKkx21.8-15.4FUniversity Hospitals Health SystemINR in Platelet poor plasma by Coagulation assayOrdered By: Jorge L Cruz on 97-44-8671OQV Coag (PPP) [Relative time]INR in Platelet poor plasma by Coagulation assaySelect Medical Trihealth Rehabilitation HospitalComment on above:INR Therapeutic Range A) Pre- and Peroperative OAT started two weeks before surgery. NOT HIP SURGERY: 1.5 - 2.5 HIP SURGERY: 2 - 3B) Primary and secondary prevention of venous THROMBOSIS: 2 - 3C) Active venous thrombosis, pulmonary embolismand prevention of recurrent venous thrombosis: 2 - 3D) Prevention of arterial thromboembolismincluding patients with mechanical heart valves: 3 - 4.5 Leukocytes [#/volume] corrected for nucleated erythrocytes in Blood by Automated counOrdered By: Jorge L Cruz on 67-42-4836ANB corrected for nucl RBC Auto (Bld) [#/Vol]Leukocytes [#/volume] corrected for nucleated erythrocytes in Blood by Automated coun3.8-11.6FUniversity Hospitals Health SystemLymphocytes Auto (Bld) [#/Vol]Ordered By: Jorge L Cruz on 98-44-4616Xbsvxkkcmra (Bld) [#/Vol]Lymphocytes [#/volume] in Blood by Automated countLow1.00-4.8[facility] Rehabilitation HospitalLymphocytes/100 WBC Auto (Bld)Ordered By: Jorge L Cruz on 30-66-6168Hpftnjjjwtg/100 WBC (Bld)Lymphocytes/100 leukocytes in Blood by Automated count.[facility] HospitalH Auto (RBC) [Entitic mass]Ordered By: Jorge L Cruz on 58-93-7996ZOJ (RBC) [Entitic mass]MCH [Entitic mass] by Automated count24.7-34.3FUniversity Hospitals Health SystemMCHC Auto (RBC) [Mass/Vol]Ordered By: Jorge L Cruz on 69-43-2913LKPB (RBC) [Mass/Vol]MCHC [Mass/volume] by Automated count32.0-35.0[facility] HospitalV Auto (RBC) [Entitic vol]Ordered By: Jorge L Cruz on 85-28-7536QAB (RBC) [Entitic vol]MCV [Entitic volume] by Automated rppol31-402 [facility] Rehabilitation HospitalMagnesiumon 71-60-3901Hklawfnrb [Mass/Vol]2.3 mg/dLNormal1.9-2.7The [facility] Physician GroupComment on above:Performed By: #### TSH3, CMP, MG #### [place] [address] USAMagnesium [Mass/volume] in Serum or PlasmaOrdered By: Jorge L Cruz on 84-21-7711Hbcuwrzvm [Mass/Vol]Magnesium [Mass/volume] in Serum or Plasma1.9-2.7FUniversity Hospitals Health SystemMicrocytes LM Ql (Bld) Ordered By: Jorge L Cruz on 77-22-5711Lgibtltfyp Ql (Bld)Microcytes [Presence] in Blood by Light microscopySelect Medical Trihealth Rehabilitation HospitalMonocyte distribution width [Entitic volume] in Blood by AutomatedOrdered By: Jorge L Cruz on 96-12-6293Rfmfxean distribution width Auto (Bld) [Entitic vol] Monocyte distribution width [Entitic volume] in Blood by AutomatedHigh0.00-20.00 [facility] HospitalComment on above:For adults in ED, MDW > 20.0 may be associated with a higher risk of sepsis during the first 12 hrs of hospital admissionMonocytes Auto (Bld) [#/Vol]Ordered By: Jorge L Cruz on 56-15-6657Daitaitzd (Bld) [#/Vol]Automated blood monocyte count0.0-0.8[facility] Rehabilitation HospitalMonocytes/100 WBC Auto (Bld)Ordered By: Jorge L Cruz on 32-51-3382Irprpgyzs/100 WBC (Bld)Automated monocyte %.[facility] HospitalNatriuretic peptide B [Mass/Vol]Ordered By: Jorge L Cruz on 73-22-9360Mqkpyplyhms peptide B (Bld) [Mass/Vol]BNP ser/plasHigh5-100[facility] Rehabilitation HospitalNeutrophils Auto (Bld) [#/Vol]Ordered By: Jorge L Cruz on 44-54-1678Vajexfxetle (Bld) [#/Vol]Neutrophils [#/volume] in Blood by Automated count1.8-7.7FUniversity Hospitals Health SystemNeutrophils/100 WBC Auto (Bld)Ordered By: Jorge L Cruz on 33-11-9353Ndmnwqwjuav/100 WBC (Bld) Automated neutrophil %.[facility] Rehabilitation HospitalNo Panel Information Ordered By: Jorge L Cruz on 25-37-9969Myesjjeyc GFR (CKD-EPI)41.827 mL/Min [facility] Rehabilitation HospitalPharmacy Creatinine Clearance (Chem37.75 [facility] HospitalNucleated erythrocytes [Presence] in Blood by Automated countOrdered By: Jorge L Cruz on 32-61-6785Tdxhdjlli RBC Auto Ql (Bld)Nucleated erythrocytes [Presence] in Blood by Automated count0-0.5FUniversity Hospitals Health SystemOvalocytes [Presence] in Blood by Light microscopy Ordered By: Jorge L Cruz on 73-76-9647Esoztcbuiv LM Ql (Bld)Ovalocyte detectionSelect Medical Trihealth Rehabilitation HospitalPartial Thromboplastin Timeon 63-56-7031dNOA Coag (Bld) [Time]29.8 pJtalgl62.1-36.5The [facility] Physician GroupComment on above:Result Comment: A hematocrit value greater than 55% may lead to inaccurate results in coagulation testing. Patients having hematocrit values >55% require a special collection tube for coagulation studies. Please contact the laboratory at [phone] for redraw instructions. PERFORMED BY: [facility] [address] [place] [address] PATHOLOGIST CLOTH DYER RAMEZ MONTES M.D.Performed By: #### SCAN CBC, CK, HS TROP, BNP, PT, PTT ####[facility] [address] [place] [address] [facility] Platelet adequacy [Presence] in Blood by Light microscopyOrdered By: Jorge L Cruz on 50-76-7319Agstpmiuw LM Ql (Bld)Platelet adequacy [Presence] in Blood by Light microscopyNormalSelect Medical Trihealth Rehabilitation HospitalPlatelet mean volume Auto (Bld) [Entitic vol]Ordered By: Jorge L Cruz on 16-90-7705Tjmvcyhj mean volume (Bld) [Entitic vol]Platelet mean volume [Entitic volume] in Blood by Automated count6.3-10.7FUniversity Hospitals Health SystemPlatelet morphology finding [Identifier] in BloodOrdered By: Jorge L Cruz on 05-42-1522Gdcvtkze morphology finding Nom (Bld)Platelet morphology finding [Identifier] in Blood NormalSelect Medical Trihealth Rehabilitation HospitalPlatelets Auto (Bld) [#/Vol]Ordered By: Jorge L Cruz on 04-84-8347Ldraulbly (Bld) [#/Vol]Platelets [#/volume] in Blood by Automated tijlf589-678QiujpruodSelect Medical Trihealth Rehabilitation HospitalPoikilocytosis [Presence] in Blood by Light microscopyOrdered By: Jorge L Cruz on 02-24-3654Jphnjvwmwkrjri LM Ql (Bld)Poikilocytosis [Presence] in Blood by Light microscopySelect Medical Trihealth Rehabilitation HospitalPotassium [Moles/volume] in Serum or PlasmaOrdered By: Jorge L Cruz on 77-67-5911Sqqiwsjkg [Moles/Vol]Potassium [Moles/volume] in Serum or Plasma3.5-5.1FUniversity Hospitals Health SystemProtein [Mass/volume] in Serum or PlasmaOrdered By: Jorge L Cruz on 02-12-2025 Protein [Mass/Vol]Protein [Mass/volume] in Serum or PlasmaLow6.4-8.9[facility] HospitalProthrombin Time INRon 21-39-1474LSE Coag (PPP) [Relative time]1.0 {INR}NormalThe [facility]rin[facility] Hospitals For Children - PhiladelphiaComment on above:Result Comment: INR Therapeutic Range A) Pre- and [...] patients with mechanical heart valves: 3 - 4.5Performed By: #### SCAN CBC, CK, HS TROP, BNP, PT, PTT ####[facility] [place] [address] USAPT Coag (PPP) [Time]11.3 sNormal9.0-12.9The [facility] For Children - PhiladelphiaComment on above:Result Comment: A hematocrit value greater than 55% may lead to inaccurate results in coagulation testing. Patients having hematocrit values >55% require a special collection tube for coagulation studies. Please contact the laboratory at [phone] for redraw instructions.Performed By: #### SCAN CBC, CK, HS TROP, BNP, PT, PTT ####[place] [address] [place] [id number] [facility] Prothrombin time (PT)Ordered By: Jorge L Cruz on 15-53-8688FD Coag (PPP) [Time]Prothrombin time (PT)9.0-12.9[facility] Rehabilitation HospitalComment on above:A hematocrit value greater than 55% may lead to inaccurate results in coagulation testing. Patientshaving hematocrit values >55% require a special collection tube for coagulation studies. Please contact the laboratory at [phone] for redraw instructions.RBC Auto (Bld) [#/Vol]Ordered By: Jorge L Cruz on 50-71-7965EIW (Bld) [#/Vol]Erythrocytes [#/volume] in Blood by Automated countLow3.60-5.00[facility] Generalcan and CBCon 35-09-4561SmizouxmdjorVzrfmzTaajkhDkrDignity Health Arizona General HospitalComment on above: Performed By: #### SCAN CBC, CK, HS TROP, BNP, PT, PTT ####[facility] [address] StreetAnisocytosis Ql (Bld)Moderate NormalThe [facility] Physician GroupComment on above:Performed By: #### SCAN CBC, CK, HS TROP, BNP, PT, PTT ####[place] [address] USABasophils (Bld) [#/Vol]0.0 10*3/uLNormal0.0-0.2The [facility] Physician GroupComment on above:Performed By: #### SCAN CBC, CK, HS TROP, BNP, PT, PTT ####[place] [address] USABasophils/100 WBC (Bld)0.6 %Normal.The [facility] Physician Group Comment on above:Performed By: #### SCAN CBC, CK, HS TROP, BNP, PT, PTT ####[address] Eosinophils (Bld) [#/Vol]0.1 10*3/uLNormal0.0-0.45The [facility] Physician Group Comment on above:Performed By: #### SCAN CBC, CK, HS TROP, BNP, PT, PTT ####[address] Eosinophils/100 WBC (Bld)1.5 %Normal.The [facility] Physician GroupComment on above:Performed By: #### SCAN CBC, CK, HS TROP, BNP, PT, PTT ####[address] StreetErythrocyte distribution width (RBC) [Ratio]13.8 %Nwqgil65.9-15.3The [facility] Physician GroupComment on above:Performed By: #### SCAN CBC, CK, HS TROP, BNP, PT, PTT ####[address] Hematocrit (Bld) [Volume fraction]29.7 %Low34.0-46.4The [facility] Hospital Physician GroupComment on above:Performed By: #### SCAN CBC, CK, HS TROP, BNP, PT, PTT ####[address] Hemoglobin (Bld) [Mass/Vol]10.2 g/dLLow11.8-15.4The [facility] Physician Group Comment on above:Performed By: #### SCAN CBC, CK, HS TROP, BNP, PT, PTT ####[address] Lymphocytes (Bld) [#/Vol]0.9 10*3/uLLow1.00-4.8The [facility]ician Group Comment on above:Performed By: #### SCAN CBC, CK, HS TROP, BNP, PT, PTT ####[address] Lymphocytes/100 WBC (Bld)13.6 %Normal.The [facility] Physician GroupComment on above:Performed By: #### SCAN CBC, CK, HS TROP, BNP, PT, PTT ####[address] (RBC) [Entitic mass]28.9 tbDmmqhz95.7-34.3The [facility] Physician GroupComment on above: Performed By: #### SCAN CBC, CK, HS TROP, BNP, PT, PTT ####[address]V (RBC) [Entitic vol]83.9 fL Mgokhe32-219Qof [facility] Physician GroupComment on above:Performed By: #### SCAN CBC, CK, HS TROP, BNP, PT, PTT ####[place] [address] USAMean Corpuscular HGB Conc34.5 g/sRWojzti34.0-35.0The [facility] Physician GroupComment on above:Performed By: #### SCAN CBC, CK, HS TROP, BNP, PT, PTT ####[place] [address] USAMicrocytosisModerateNormalThe [facility] Physician GroupComment on above:Performed By: #### SCAN CBC, CK, HS TROP, BNP, PT, PTT ####[place] [address] USAMonocytes (Bld) [#/Vol]0.4 10*3/uLNormal0.0-0.8The [facility] Physician GroupComment on above: Performed By: #### SCAN CBC, CK, HS TROP, BNP, PT, PTT ####[place] [id number] USAMonocytes/100 WBC (Bld)21.49 % High0.00-20.00The [facility] Physician GroupComment on above:Result Comment: For adults in ED, MDW > 20.0 may be associated with a higher risk of sepsis during the first 12 hrs of hospital admissionPerformed By: #### SCAN CBC, CK, HS TROP, BNP, PT, PTT ####[place] [address] USAMonocytes/100 WBC (Bld)6.6 %Normal.The [facility] Physician GroupComment on above:Performed By: #### SCAN CBC, CK, HS TROP, BNP, PT, PTT ####[place] [address] [place] Neutrophils (Bld) [#/Vol]4.9 10*3/uLNormal1.8-7.7The [facility]ician Group Comment on above:Performed By: #### SCAN CBC, CK, HS TROP, BNP, PT, PTT ####[place] [address] [place] Neutrophils/100 WBC (Bld)77.7 %Normal.The [facility] Physician GroupComment on above:Performed By: #### SCAN CBC, CK, HS TROP, BNP, PT, PTT ####[place] [address] USANRBC%0.1 /100{WBC} Normal0-0.5The [facility] Physician GroupComment on above:Performed By: #### SCAN CBC, CK, HS TROP, BNP, PT, PTT ####[place] [address] [place] [address] USAOvalocytesSlightNoAlleghany Health Physician [facility] Comment on above:Performed By: #### SCAN CBC, CK, HS TROP, BNP, PT, PTT ####[place] [address] [place] [address] USAPlatelet EstimateNormalNormalNormHCA Florida Citrus Hospital Physician Laird HospitalComment on above: Performed By: #### SCAN CBC, CK, HS TROP, BNP, PT, PTT ####[place] [address] [place] [address] USAPlatelet mean volume (Bld) [Entitic vol]7.7 fLNormal6.3-10.7The [facility] Physician Laird HospitalComment on above: Performed By: #### SCAN CBC, CK, HS TROP, BNP, PT, PTT ####[place] [address] [place] [address] USAPlatelet MorphologyNormalNormal NormalThe [facility] Physician GroupComment on above:Result Comment: PERFORMED BY: [facility] [address] [facility] [place] [address] PATHOLOGIST CLOTH DYER RAMEZ MONTES M.D.Performed By: #### SCAN CBC, CK, HS TROP, BNP, PT, PTT ####[address] [address] [place] Platelets (Bld) [#/Vol]383 10*3/rOUoahwd828-479Lru [facility] Physician [facility] Comment on above:Performed By: #### SCAN CBC, CK, HS TROP, BNP, PT, PTT ####[place] [address] [place] [address] [place] PoikilocytosisModerateNormHCA Florida Citrus Hospital Physician Laird HospitalComment on above: Performed By: #### SCAN CBC, CK, HS TROP, BNP, PT, PTT ####[address] [address] USARBC (Bld) [#/Vol]3.54 10*6/uL Low3.60-5.00The [facility] Physician GroupComment on above:Performed By: #### SCAN CBC, CK, HS TROP, BNP, PT, PTT ####[facility] [place] [id number] USAWBC (Bld) [#/Vol]6.3 10*3/uLNormal3.8-11.6The [facility] Physician GroupComment on above:Performed By: #### SCAN CBC, CK, HS TROP, BNP, PT, PTT ####[facility] [place] [address] USAWBC (Bld) [#/Vol]7.6 10*3/uLNormal3.8-11.6The [facility] Physician GroupComment on above:Performed By: #### SCAN CBC, CK, HS TROP, BNP, PT, PTT ####[place] [address] [place] [address] USASerum or plasma albumin/globulin mass ratioOrdered By: Jorge L Cruz on 02-12-2025 Albumin/Globulin [Mass ratio]Serum or plasma albumin/globulin mass ratio [facility] Generalerum or plasma anion gap determinationOrdered By: Jorge L Cruz on 39-90-0658Fwilk gap [Moles/Vol]Serum or plasma anion gap determination6.0-15.0[facility] Generalodium [Moles/volume] in Serum or PlasmaOrdered By: Jorge L Cruz on 68-88-4304Xkvfzb [Moles/Vol] Sodium [Moles/volume] in Serum or Okipne769-615GdpstxvfrSelect Medical Trihealth Rehabilitation Hospital Thyroid Stimulating Hormoneon 22-27-2818VRP Qn6.48 m[IU]/LHigh0.45-5.33The [facility] Physician GroupComment on above:Result Comment: PERFORMED BY: [facility] [address] [place] [address] PATHOLOGIST CLOTH DYER RAMEZ MONTES M.D.Performed By: #### TSH3, CMP, MG #### [facility] [address] [place] [address] USAThyrotropin [Units/volume] in Serum or PlasmaOrdered By: Jorge L Cruz on 90-91-8248MKI QnThyrotropin [Units/volume] in Serum or PlasmaHigh0.45-5.33[facility] Rehabilitation HospitalTroponin I High Sensitivity on 47-50-6558Wkmhddcl I High Ykuaphrrjda53Wpdzxs8-76Vin [facility] Physician GroupComment on above:Result Comment: The Troponin units of report have been changed to meet the Chest Pain Accreditation requirement, element EC5.M1l2. Troponin units are changed from pg/ml to ng/L. Also, the decimal is removed and results are in whole numbers. PERFORMED BY: [facility] [address] [place] [address] PATHOLOGIST CLOTH DYER RAMEZ MONTES M.D.Performed By: #### HS TROP ####[place] [address] [place] [address] USATroponin I High Efgowztzqmz21 Normal0-15The [facility] Physician Laird HospitalComment on above:Result Comment: The Troponin units of report have been changed to meet the Chest Pain Accreditation requirement, element EC5.M1l2. Troponin units are changed from pg/ml to ng/L. Also, the decimal is removed and results are in whole numbers. PERFORMED BY: [facility] [address] [place] [id number] PATHOLOGIST CLOTH DYER RAMEZ MONTES M.D.Performed By: #### SCAN CBC, CK, HS TROP, BNP, PT, PTT ####[place] [id number] [facility] Troponin I.cardiac [Mass/volume] in Serum or Plasma by Detection limit <= 0.01 ng/Ordered By: Jorge L Cruz on 02-81-7977Nogvlmuw I.cardiac DL <= 0.01 ng/mL [Mass/Vol]Troponin I.cardiac [Mass/volume] in Serum or Plasma by Detection limit <= 0.01 ng/0-15[facility] HospitalComment on above:The Troponin units of report have been changed to meet the Chest Pain Accreditation requirement, element EC5.M1l2. Troponin units are changed from pg/ml to ng/L. Also, the decimal is removed and results are in whole numbers.Urea nitrogen [Mass/volume] in Serum or PlasmaOrdered By: Jorge L Cruz on 65-27-9524Gnfj nitrogen [Mass/Vol]Urea nitrogen [Mass/volume] in Serum or Plasma [facility] HospitalWBC Auto (Bld) [#/Vol]Ordered By: Jorge L Cruz on 80-73-8759SRQ (Bld) [#/Vol]Leukocytes [#/volume] in Blood by Automated count3.8-11.6FUniversity Hospitals Health SystemXR chest 2V*on 79-62-3340KL chest 2V*[facility] [place] [address] XRay Report Signed Patient: Lashaun Joaquin MR#: [id number] 99 : 1940 Acct:[id number] Age/Sex: 84 / F ADM Date: 02/12/25 Loc: ER Room: Type: [facility] ER Attending Dr: Copies to: Jorge [...] Lyon Jr., D.OManuel02/12/2025 8:16 AM Dictation Location: [place] [address] Transcribed By: [facility] 02/12/25815 Dictated By: Epifanio Lyon Jr, DO 02/12/25 0816 Signed By: 02/12/25 0816NoAlleghany Health Physician GroupaPTT in Platelet poor plasma by Coagulation assayOrdered By: Jorge L Cruz on 57-75-9136bJFY Coag (PPP) [Time]Activated partial thromboplastin time (aPTT) in platelet poor plasma by coagulation a25.1-36.5FUniversity Hospitals Health SystemComment on above:A hematocrit value greater than 55% may lead to inaccurate results in coagulation testing. Patientshaving hematocrit values >55% require a special collection tube for coagulation studies. Please contact the laboratory at [phone] for redraw instructions.[place] Thyroid glandon 05-[place] [address] Ultrasound Report Signed Patient: LASHAUN JOAQUIN MR#: [id number] : 1940 Acct:[id number] Age/Sex: 84 / F ADM Date: 02/10/25 Loc: US Attending Dr: Reyna Esparza M.D. Ordering Physician: Reyna Esparza M.D. Date of Service: 02/10/25 Procedure(s): US thyroid Accession Number(s): [id number] cc: Nathan Hathaway D.O.; Reyna Esparza M.D. [address] [address] Patient Name: LASHAUN JOAQUIN MRN: [id number] date: 1940 Sex: F Assigned Patient Location: US Current Patient Location: US Accession/Order Number: [id number] Exam Date: 02/10/2025 11:24 Report Date: 02/10/2025 [...] Shelli Israel M.D.02/10/2025 11:33 AM Dictation Location: [place] [address] Electronically authenticated by: [id number] Y Date: 02/10/2025 11:33 Dictated By: Shelli Israel M.D. Signed By: 02/10/25 1136 DD/ 1133 TD/TT: Child Development Director:TBHRadiology, Radiologist, - 02/10/2025 [place] [address] Ultrasound Report Signed Patient: LASHAUN JOAQUIN MR#: [id number] : 1940 Acct:[id number] Age/Sex: 84 / F ADM Date: 02/10/25 Loc: US Attending Dr: Reyna Esparza M.D. Ordering Physician: Reyna Esparza M.D. Date of Service: 02/10/25 Procedure(s): US thyroid Accession Number(s): [id number] cc: Nathan Hathaway D.O.; Reyna Esparza M.D. The [place] [id number] Patient Name: LASHAUN JOAQUIN MRN: [id number] date: 1940 Sex: F Assigned Patient Location: US Current Patient Location: US Accession/Order Number: [id number] Exam Date: 02/10/2025 11:24 Report Date: 02/10/2025 [...] Shelli Israel M.D.02/10/2025 11:33 AM Dictation Location: [place] [address] Electronically authenticated by: [id number] Y Date: 02/10/2025 11:33 Dictated By: Shelli Israel M.D. Signed By: 02/10/25 1136 DD/ 1133 TD/TT: Child Development Director: PEREZ HealthcareRadiology Study observation (narrative)PEREZ PatelUS Thyroid glandOrdered By: Radiologist Radiology on 12-90-7977PAYR [employer] Work Phone: Estimated glomerular filtration rate (GFR) non- Americanon 51-10-1153IRJ/1.73 sq M.predicted among non-blacks MDRD (S/P/Bld) [Vol rate/Area]Estimated glomerular filtration rate (GFR) non- Low>=60 mL/min/1.73m 2FUniversity Hospitals Health SystemLaboratory - Chemistry and Chemistry - challengeon 23-09-9068Fqwfvfe [Mass/Vol]8.9 mg/dL8.5-10.1 [facility] HospitalChloride [Moles/Vol]106 mmol/R20-459AwvowsnbnSelect Medical Trihealth Rehabilitation HospitalCO2 [Moles/Vol]28.0 mmol/L21.0-32.0[facility] HospitalCreatinine [Mass/Vol]1.42 mg/dLHigh0.55-1.02[facility] HospitalGFR/1.73 sq M.predicted MDRD (S/P/Bld) [Vol rate/Area]43 mL/min/{1.73_m2}Low>=60 mL/min/1.73m 2FUniversity Hospitals Health SystemGlucose [Mass/Vol]116 mg/eCSkiu58-395XdklikgjySelect Medical Trihealth Rehabilitation HospitalPotassium [Moles/Vol]3.9 mmol/L3.5-5.1FGenesis Hospitalodium [Moles/Vol] 145 mmol/T238-718SijcfcymtSelect Medical Trihealth [facility] HospitalUrea nitrogen [Mass/Vol]21.0 mg/dLHigh7.0-18.0[facility] HospitalUrea nitrogen/Creatinine [Mass ratio]14.8 mg/mgCleveland Clinic Akron Generalerum or plasma anion gap determinationon 05-08-9782Yedpn gap [Moles/Vol]Serum or plasma anion gap determinationSelect Medical Trihealth Rehabilitation HospitalLaboratory - Chemistry and Chemistry - challengeon 84-07-3130Ysxlvuoci Ql (U)NegativeSelect Medical Trihealth Rehabilitation HospitalGlucose (U) [Mass/Vol]NegativeSelect Medical Trihealth Rehabilitation Hospital Ketones Ql (U)[facility] CenterpH (U)5 [pH][facility] Generalpecific gravity (U) [Rel density]1.000[facility] HospitalUrobilinogen (U) [Mass/Vol]NegativeSelect Medical Trihealth Rehabilitation HospitalLaboratory - Specimen informationon 67-48-5855Xmuabqntna (U)clearSelect Medical Trihealth Rehabilitation HospitalColor (U)yellowSelect Medical [facility] Laboratory - Urinalysison 42-33-4707Fsjuvcnyi esterase Test strip Ql (U)Negative [facility] HospitalNitrite Ql (U)NegativeSelect Medical Trihealth Rehabilitation HospitalProtein Ql (U)0.2FUniversity Hospitals Health SystemNo Panel Informationon 23-52-7002Segrd Occult Blood++[facility] Estimated glomerular filtration rate (GFR) non- Americanon 12-18-2024 GFR/1.73 sq M.predicted among non-blacks MDRD (S/P/Bld) [Vol rate/Area]Estimated glomerular filtration rate (GFR) non- AmericanLow>=60 mL/min/1.73m 2 [facility] HospitalLaboratory - Chemistry and Chemistry - challengeon 33-44-6045Othdcdo [Mass/Vol]8.9 mg/dL8.5-10.1FUniversity Hospitals Health SystemChloride [Moles/Vol]105 mmol/S93-504MfaqwztpzSelect Medical Trihealth Rehabilitation HospitalCO2 [Moles/Vol]30.4 mmol/L21.0-32.0[facility] Creatinine [Mass/Vol]1.57 mg/dLHigh0.55-1.02[facility] Free T4 [Mass/Vol]0.90 ng/dL0.76-1.46[facility] HospitalGFR/1.73 sq M.predicted MDRD (S/P/Bld) [Vol rate/Area]38 mL/min/{1.73_m2}Low>=60 mL/min/1.73m 2FUniversity Hospitals Health SystemGlucose [Mass/Vol]119 mg/dLHigh 74-106[facility] HospitalPotassium [Moles/Vol]4.1 mmol/L3.5-5.1 [facility] Generalodium [Moles/Vol]143 mmol/D328-178QyapzrzrsSelect Medical Trihealth Rehabilitation HospitalTSH Qn2.650 m[IU]/L0.358-3.740[facility] HospitalUrea nitrogen [Mass/Vol]28.0 mg/dLHigh7.0-18.0[facility] HospitalUrea nitrogen/Creatinine [Mass ratio]17.8 mg/mgCleveland Clinic Akron Generalerum or plasma anion gap determinationon 41-12-7825Zdgqw gap [Moles/Vol] Serum or plasma anion gap determinationSelect Medical Trihealth Rehabilitation HospitalINR in Platelet poor plasma by Coagulation assayOrdered By: Nathan Hathaway on 11-17-2024 INR Coag (PPP) [Relative time]INR in Platelet poor plasma by Coagulation assay [facility] HospitalComment on above:INR Therapeutic Range A) Pre- and Peroperative OAT started two weeks before surgery. NOT HIP SURGERY: 1.5 - 2.5 HIP SURGERY: 2 - 3B) Primary and secondary prevention of venous THROMBOSIS: 2 - 3C) Active venous thrombosis, pulmonary embolismand prevention of recurrent venous thrombosis: 2 - 3D) Prevention of arterial thromboembolismincluding patients with mechanical heart valves: 3 - 4.5Lon 11-17-2024 Specimen: [id number] Received: 11/17/24 Status: SERENITY Rojas Num: [id number] Spec Type: Cytology Subm Dr: Seth Ley DO Tissues: A FNA SLIDES PATH (FNA THYROID) Procedures: -, DIFF QWIK/3, PAPSTN/4 Age/ Patient Sex Location Account Attending Physician Lashaun Joaquin 84/F [id number] Nathan Hathaway DO SPEC NUM: [id number] RECD: 11/17/24 STATUS: SERENITY ROJAS NUM: [id number] JED: 11/17/24- DR: Seth Ley DO ENTERED: 11/17/24 [facility] DR: Nathan Hathaway DO SPEC TYPE: Cytology DEPT: CNG ENTERED BY: [id number] RECV BY: [id number] ORDERED: -, DIFF QWIK/3, PAPSTN/4 ORDERED: -, DIFF QWIK/3, PAPSTN/4 Pathological Diagnosis Thyroid nodule, US-guided FNA: Satisfactory for evaluation. Benign ([place] category I). Clinical Information Thyroid Nodule,adrenal nodule, hypothyroidism Gross Description Received fixed in Cytolyt is 32 ml red hazy fixed fluid for cytology said to have been obtained as Thyroid. ThinPrep preparations are prepared for microscopic examination. Also received are 6 total smeared slides and a Veracyte vial stored at -20 for microscopic examination. (CC/wi) Immediate Evaluation Thyroid, FNA, immediate evaluation: Mostly macrophages and colloid; additional pass requested. 11/17/2024, 12:20 PM Specimen: [id number] Received: 11/17/24 Status: SERENITY Venegasblack Num: [id number] Spec Type: Cytology Subm Dr: Seth Ley DO Tissues: A FNA SLIDES PATH (FNA THYROID) Procedures: -, DIFF QWIK/3, PAPSTN/4 Patient: Lashaun Joaquin [id number] (Continued) Specimen: [id number] Received: 11/17/24 (Continued) Signed (signature on file) Lala Mast MD 11/18/24 0857 Specimen: [id number] Received: 11/17/24 Status: SERENITY Rojas Num: [id number] Spec Type: Cytology Subm Dr: Seth Ley DO Tissues: A FNA SLIDES PATH (FNA THYROID) Procedures: -, DIFF QWIK/3, PAPSTN/4 Patient: Karla Joaquinelyn [id number] (Continued) Specimen: [id number] Received: 11/17/24 (Continued) CPT Codes 27767, 07120 Specimen: [id number] Received: 11/17/24 Status: RHONDAAlbino Betsy Num: [id number] Spec Type: Cytology Subm Dr: Seth Ley DO Tissues: A FNA SLIDES PATH (FNA THYROID) Procedures: -, DIFF QAMELIAK/JOHN Hayden/4 Patient: Lashaun Joaquin [id number] (Continued) Signed (signature on file) Lala Mast MD 11/18/24 0857 NormalPhysicians [facility] Physician Laird HospitalPartial Thromboplastin Timeon 48-36-2285oDWB Coag (Bld) [Time]28.9 cJqqbti60.1-36.5The [facility] Physician Laird HospitalComment on above:Result Comment: A hematocrit value greater than 55% may lead to inaccurate results in coagulation testing. Patients having hematocrit values >55% require a special collection tube for coagulation studies. Please contact the laboratory at [phone] for redraw instructions. PERFORMED BY: [place] [address] PATHOLOGIST CLOTH DYER RAMEZ MONTES M.D.Performed By: #### PTT, PT #### [place] [address] USAPlatelet Counton 44-77-5585Psozlvxzq (Bld) [#/Vol]253 10*3/gHXitssl286-092Aid [facility] Physician Laird HospitalComment on above:Result Comment: PERFORMED BY: [place] [address] PATHOLOGIST CLOTH DYER RAMEZ MONTES M.D.Performed By: #### PLT #### [place] [address] USAPlatelets Auto (Bld) [#/Vol]Ordered By: Nathan Hathaway on 17-39-6910Vpxgkuanb (Bld) [#/Vol]Platelets [#/volume] in Blood by Automated miwud446-057ZfgvtecrcSelect Medical Trihealth Rehabilitation HospitalProthrombin Time INRon 11-17-2024 INR Coag (PPP) [Relative time]1.0 {INR}NormalThe [facility] Physician [facility] Comment on above:Result Comment: INR Therapeutic Range A) Pre- and [...] patients with mechanical heart valves: 3 - 4.5Performed By: #### PTT, PT #### [facility] [address] [place] [address] USAPT Coag (PPP) [Time]11.9 sNormal9.0-12.9The [facility] Physician GroupComment on above:Result Comment: A hematocrit value greater than 55% may lead to inaccurate results in coagulation testing. Patients having hematocrit values >55% require a special collection tube for coagulation studies. Please contact the laboratory at [phone] for redraw instructions.Performed By: #### PTT, PT #### [facility] [address] [place] [address] USAProthrombin time (PT)Ordered By: Nathan Hathaway on 00-44-4822MQ Coag (PPP) [Time]Prothrombin time (PT)9.0-12.9[facility] HospitalComment on above:A hematocrit value greater than 55% may lead to inaccurate results in coagulation testing. Patientshaving hematocrit values >55% require a special collection tube for coagulation studies. Please contact the laboratory at [phone] for redraw instructions.US needle aspirationon 83-24-3866NW needle aspirationMETROHEALTH C[facility] Main [place] [address] [place] [address] Ultrasound Report Signed Patient: Lashaun Joaquin MR#: [id number] : 1940 Acct:[id number] Age/Sex: 84 / F ADM Date: 11/17/24 Loc: Room: Type: [facility] Attending Dr: Nathan Hathaway DO Ordering Provider: [...] Seth Ley M.D.11/17/2024 12:41 PM Dictation Location: [place] [address] Tech: Deja Lipscomb Transcribed By: LAURA 11/17/24 1241 Dictated By: Seth Ley DO 11/17/24 1159 Signed By: 11/17/24 1241[facility] Physician GroupaPTT in Platelet poor plasma by Coagulation assayOrdered By: Nathan Hathaway on 62-24-7974kZZX Coag (PPP) [Time] Activated partial thromboplastin time (aPTT) in platelet poor plasma by coagulation a25.1-36.5FUniversity Hospitals Health SystemComment on above:A hematocrit value greater than 55% may lead to inaccurate results in coagulation testing. Patientshaving hematocrit values >55% require a special collection tube for coagulation studies. Please contact the laboratory at [phone] for redraw instructions.Estimated glomerular filtration rate (GFR) non- Americanon 58-88-6128CGD/1.73 sq M.predicted among non-blacks MDRD (S/P/Bld) [Vol rate/Area]Estimated glomerular filtration rate (GFR) non- Low>=60 mL/min/1.73m 2FUniversity Hospitals Health SystemLaboratory - Chemistry and Chemistry - challengeon 23-89-7327Svvsnal [Mass/Vol]8.6 mg/dL8.5-10.1 [facility] HospitalChloride [Moles/Vol]108 mmol/IXroe11-579 [facility] HospitalCO2 [Moles/Vol]27.0 mmol/L21.0-32.0[facility] HospitalCreatinine [Mass/Vol]1.39 mg/dLHigh0.55-1.02[facility] HospitalFree T4 [Mass/Vol]0.80 ng/dL0.76-1.46[facility] HospitalGFR/1.73 sq M.predicted MDRD (S/P/Bld) [Vol rate/Area]44 mL/min/{1.73_m2}Low>=60 mL/min/1.73m 2FUniversity Hospitals Health SystemGlucose [Mass/Vol]85 mg/sE57-118PzledrocoSelect Medical Trihealth Rehabilitation HospitalPotassium [Moles/Vol] 4.5 mmol/L3.5-5.1FGenesis Hospitalodium [Moles/Vol]144 mmol/L 136-145[facility] HospitalTSH Qn3.767 m[IU]/LHigh0.358-3.740 [facility] HospitalUrea nitrogen [Mass/Vol]20.0 mg/dLHigh7.0-18.0 [facility] HospitalUrea nitrogen/Creatinine [Mass ratio]14.4 mg/mg [facility] Generalerum or plasma anion gap determinationon 06-42-0088Yvabs gap [Moles/Vol]Serum or plasma anion gap determinationSelect Medical Trihealth Rehabilitation HospitalEstimated glomerular filtration rate (GFR) non- Americanon 63-07-7446JQE/1.73 sq M.predicted among non-blacks MDRD (S/P/Bld) [Vol rate/Area]39 mL/min/{1.73_m2}Low>=60[facility] Laboratory - Chemistry and Chemistry - challengeon 10-79-2683Otqjvwo [Mass/Vol] 8.8 mg/dL8.5-10.1FUniversity Hospitals Health SystemChloride [Moles/Vol]106 mmol/L 98-107[facility] HospitalCO2 [Moles/Vol]30.8 mmol/L21.0-32.0 [facility] HospitalCreatinine [Mass/Vol]1.30 mg/dLHigh0.55-1.02 [facility] HospitalGFR/1.73 sq M.predicted MDRD (S/P/Bld) [Vol rate/Area]48 mL/min/{1.73_m2}Low>=60[facility] HospitalGlucose [Mass/Vol]89 mg/wB42-732LbpxcoqtuSelect Medical Trihealth Rehabilitation HospitalPotassium [Moles/Vol] 4.3 mmol/L3.5-5.1FGenesis Hospitalodium [Moles/Vol]143 mmol/L 136-145[facility] HospitalUrea nitrogen [Mass/Vol]24.0 mg/dLHigh 7.0-18.0[facility] HospitalUrea nitrogen/Creatinine [Mass ratio] 18.5 mg/mgFirelands Regional Medical CenterSerum or plasma anion gap determinationon 94-72-0684Hisht gap [Moles/Vol]10.5 mmol/LFUniversity Hospitals Health SystemEstimated glomerular filtration rate (GFR) non- Americanon 31-99-6505RGF/1.73 sq M.predicted among non-blacks MDRD (S/P/Bld) [Vol rate/Area]37 mL/min/{1.73_m2}Low>=60[facility] HospitalLaboratory - Chemistry and Chemistry - challengeon 21-85-6113Rhypmue [Mass/Vol]8.5 mg/dL 8.5-10.1FUniversity Hospitals Health SystemChloride [Moles/Vol]106 mmol/L98-107 [facility] HospitalCO2 [Moles/Vol]28.7 mmol/L21.0-32.0[facility] HospitalCreatinine [Mass/Vol]1.36 mg/dLHigh0.55-1.02[facility] HospitalGFR/1.73 sq M.predicted MDRD (S/P/Bld) [Vol rate/Area]45 mL/min/{1.73_m2}Low>=60[facility] HospitalGlucose [Mass/Vol]98 mg/mW74-073EjzdxjjesSelect Medical Trihealth Rehabilitation HospitalPotassium [Moles/Vol]4.3 mmol/L 3.5-5.1FGenesis Hospitalodium [Moles/Vol]142 mmol/O717-413 [facility] HospitalUrea nitrogen [Mass/Vol]26.0 mg/dLHigh7.0-18.0 [facility] HospitalUrea nitrogen/Creatinine [Mass ratio]19.1 mg/mg [facility] Generalerum or plasma anion gap determinationon 00-86-6272Nkmiq gap [Moles/Vol]11.6 mmol/LFUniversity Hospitals Health SystemNM Heart Perfusion W stress and W radionuclide Rivka 00-71-6341Rahacy Lexiscan Myoview cardiac perfusion stress test. No evidence of ischemia or myocardial infarction by perfusion imaging. Normal left ventricular systolic function, ejection fraction 88%. When compared previous study changes are noted. Previous study showed anterior wall ischemia which was not present during the study. Signed by: Faustino Zuniga 03/12/2024 4:34 PM Dictation workstation: [id number] By: Faustino Zuniga and Giannuzzi Michael STUDY: MYOCARDIAL PERFUSION STRESS TEST WITH LEXISCAN Performing facility: [facility], [address], [address], [place] [address] [facility] Provider: Holden Rosado RN, HOME MANAGEMENT SUPERVISOR PCP: Dr. Ksenia Hathaway Supervising provider: Anthony Perry DO, [facility] INDICATION: ASHD HISTORY: Gender: F; Age: 83 y/o ; Height: HT 165.1 cm cm; Weight: WT 88.905 kg kg. CAD; High Cholesterol; HTN; Fatigue; Quit smoking 44 years ago. Cardiac catheterization on 2022. PTCA on 2022. COMPARISON: Previous nuclear testing completed [id number] at [place]. ACCESSION NUMBER(S): [id number] ORDERING CLINICIAN: HOLDEN ROSADO TECHNIQUE: ONE DAY [...] There were evidence of breast attenuation artifact. MMODALFaustino Zuniga MD - 03/12/2024 Interpreted By: TrabFaustino bowman and Giannuzzi Michael STUDY: MYOCARDIAL PERFUSION STRESS TEST WITH LEXISCAN Performing facility: [facility], [address], [address], [place] [address] [facility] Provider: Holden Rosado RN, HOME MANAGEMENT SUPERVISOR PCP: Dr. Ksenia Hathaway Supervising provider: Anthony Perry DO, [facility] INDICATION: ASHD HISTORY: Gender: F; Age: 83 y/o ; Height: HT 165.1 cm cm; Weight: WT 88.905 kg kg. CAD; High Cholesterol; HTN; Fatigue; Quit smoking 44 years ago. Cardiac catheterization on 2022. PTCA on 2022. COMPARISON: Previous nuclear testing completed [id number] at [place]. ACCESSION NUMBER(S): [id number] ORDERING CLINICIAN: HOLDEN ROSADO TECHNIQUE: ONE DAY [...] Faustino Zuniga 03/12/2024 4:34 PM Dictation workstation: [id number] [facility] Work Phone: Radiology Study observation (narrative)[facility] Work Phone: nm Heart Perfusion W stress and W radionuclide IV Ordered By: Faustino Zuniga on 77-12-8281MgvgnccidaSumma Health [facility] Work Phone: Basic Metabolic Panelon 73-98-7477XHG/1.73 sq M.predicted MDRD (S/P/Bld) [Vol rate/Area]39.134 mL/min/{1.73_m2}NormalThe [facility] Physician GroupComment on above:Performed By: #### BMP ####[place] [id number] USACalcium [Mass/volume] in Serum or PlasmaOrdered By: Holden Rosado on 46-88-5265Xgqqaym [Mass/Vol]9.2 mg/dLNormal8.6-10.3FUniversity Hospitals Health SystemComment on above:Result Comment: PERFORMED BY: [facility] [address] [place] [address] PATHOLOGIST CLOTH DYER JAMAAL MO M.D.Performed By: #### BMP ####[address] [address] USACarbon dioxide, total [Moles/volume] in Serum or PlasmaOrdered By: Holden Rosado on 11-59-9824AC8 [Moles/Vol]32.1 mmol/LHigh 21.0-31.0[facility] HospitalComment on above:Performed By: #### BMP ####[address] [address] [place] Chloride [Moles/volume] in Serum or PlasmaOrdered By: Holden Rosado on 03-05-2024 Chloride [Moles/Vol]104 mmol/XBssszk79-749UllxnzzpoSelect Medical Trihealth Rehabilitation Hospital Comment on above:Performed By: #### BMP ####[address] [place] [address] USACreatinine [Mass/volume] in Serum or Plasma Ordered By: Holden Rosado on 05-94-4016Fbexodwfyp [Mass/Vol]1.36 mg/dLHigh 0.60-1.20[facility] HospitalComment on above:Performed By: #### BMP ####[address] [address] [place] Glucose [Mass/volume] in Serum or PlasmaOrdered By: Holden Rosado on 03-05-2024 Glucose [Mass/Vol]79 mg/mAVdrgjk47-416AodnyzufsSelect Medical Trihealth Rehabilitation HospitalComment on above:ADA recommended reference rangeRandom Glucose Reference Range is dependent on time and content of last meal. Glucose of more than 200 mg/dL in a nonstressed, ambulatory subject supports the diagnosisof Diabetes Mellitus. Result Comment: Random Glucose Reference Range is dependent on time and content of last meal. Glucose of more than 200 mg/dL in a nonstressed, ambulatory subject supports the diagnosis of Diabetes Mellitus. ADA recommended reference rangePerformed By: #### BMP ####[address] [address] [place]ANo Panel InformationOrdered By: Holden Rosado on 04-25-9477Mrxecgaph GFR (CKD-EPI)39.134 mL/MinSelect Medical Trihealth Rehabilitation HospitalPharmacy Creatinine Clearance (ChemN/[facility] Healthcare SystemPotassium [Moles/volume] in Serum or PlasmaOrdered By: Holden Rosado on 27-99-3164Somxjbuht [Moles/Vol]5.2 mmol/LHigh3.5-5.1FUniversity Hospitals Health SystemComment on above:Performed By: #### BMP ####[address] [address] USASerum or plasma anion gap determinationOrdered By: Holden Rosado on 75-68-8442Hhymu gap [Moles/Vol]10.1 mmol/LNormal6.0-15.0[facility] HospitalComment on above:Performed By: #### BMP ####[place] [address] [place] [address] USASodium [Moles/volume] in Serum or PlasmaOrdered By: Holden Rosado on 51-44-4798Rhiqqz [Moles/Vol]141 mmol/CMbwtpn958-784SkvfitrpkSelect Medical Trihealth Rehabilitation HospitalComment on above:Performed By: #### BMP ####[facility] [address] [place] [address] USAUrea nitrogen [Mass/volume] in Serum or PlasmaOrdered By: Holden Rosado on 49-67-5563Hrgp nitrogen [Mass/Vol]26 mg/dL High7-25[facility] HospitalComment on above:Performed By: #### BMP ####[facility] [address] [place] [id number] [place] Basophils Auto (Bld) [#/Vol]on 25-63-4729Chwegplqw (Bld) [#/Vol]0.0 10 3/uL 0.0-0.1FUniversity Hospitals Health SystemBasophils/100 WBC Auto (Bld)on 68-22-8554Dzbywgfgu/100 WBC (Bld)0.8 %0.2-2.0[facility] Eosinophils/100 WBC Auto (Bld)on 36-50-4452Vyhgzifdqsn/100 WBC (Bld)2.8 %0.9-7.0 [facility] HospitalErythrocyte distribution width Auto (RBC) [Ratio]on 96-08-7080Pekpfqybvie distribution width (RBC) [Ratio]13.1 %11.0-15.0 [facility] HospitalEstimated glomerular filtration rate (GFR) non- Americanon 23-46-0654MBH/1.73 sq M.predicted among non-blacks MDRD (S/P/Bld) [Vol rate/Area]49 mL/min/{1.73_m2}>=60[facility] HospitalGlobulin Calc (S) [Mass/Vol]on 49-48-3623Kpcnnqgj (S) [Mass/Vol]2.7 g/dL [facility] HospitalHematocrit Auto (Bld) [Volume fraction]on 97-78-4677Wrtjwpwcsh (Bld) [Volume fraction]29.2 %36.0-48.0[facility] HospitalHemoglobin [Mass/volume] in Bloodon 09-07-0330Wijfecyhqp (Bld) [Mass/Vol]9.5 g/dL12.0-16.0[facility] HospitalLaboratory - Chemistry and Chemistry - challengeon 89-43-5646Ksbkkmp [Mass/Vol]2.9 g/dL 3.4-5.0[facility] HospitalALP [Catalytic activity/Vol]44 U/L46-116 [facility] HospitalALT [Catalytic activity/Vol]13 U/L14-59 [facility] HospitalAST [Catalytic activity/Vol]14 U/L15-37 [facility] HospitalBilirubin [Mass/Vol]0.6 mg/dL0.2-1.0[facility] HospitalCalcium [Mass/Vol]8.9 mg/dL8.5-10.1FUniversity Hospitals Health SystemChloride [Moles/Vol]107 mmol/X46-866DalnrardsSelect Medical Trihealth Rehabilitation HospitalCO2 [Moles/Vol]27.9 mmol/L21.0-32.0[facility] Creatinine [Mass/Vol]1.08 mg/dL0.55-1.02[facility] GFR/1.73 sq M.predicted MDRD (S/P/Bld) [Vol rate/Area]59 mL/min/{1.73_m2}>=60 [facility] HospitalGlucose [Mass/Vol]83 mg/zF25-517BtcknmszbSelect Medical Trihealth Rehabilitation HospitalPotassium [Moles/Vol]3.8 mmol/L3.5-5.1FUniversity Hospitals Health SystemProtein [Mass/Vol]5.6 g/dL6.4-8.2FUniversity Hospitals Health System Sodium [Moles/Vol]141 mmol/B187-078UwighnopiSelect Medical Trihealth Rehabilitation HospitalUrea nitrogen [Mass/Vol]18.0 mg/dL7.0-18.0[facility] HospitalUrea nitrogen/Creatinine [Mass ratio]16.7 mg/mgSelect Medical Trihealth Rehabilitation Hospital Laboratory - Hematology and Cell countson 36-27-3112Ydpnnyoo granulocytes/100 WBC (Bld)0.2 %0.0-0.5FUniversity Hospitals Health SystemLeukocytes [#/volume] corrected for nucleated erythrocytes in Blood by Automated counon 25-73-9705EOH corrected for nucl RBC Auto (Bld) [#/Vol]4.7 10 3/uL4.0-11.0[facility] HospitalLymphocytes Auto (Bld) [#/Vol]on 20-34-6545Bmripbwpgrl (Bld) [#/Vol]1.0 10 3/uL1.2-3.8[facility] HospitalLymphocytes/100 WBC Auto (Bld)on 15-75-9280Iypwqsmskyx/100 WBC (Bld)21.8 %20.5-60.0[facility] HospitalH Auto (RBC) [Entitic mass]on 28-57-2405OHJ (RBC) [Entitic mass]29.2 pg26.7-34.0[facility] HospitalHC Auto (RBC) [Mass/Vol]on 91-16-0799AOKS (RBC) [Mass/Vol]32.5 g/dL29.9-35.2FUniversity Hospitals Health SystemMCV Auto (RBC) [Entitic vol]on 10-37-9290VRZ (RBC) [Entitic vol] 89.8 fL81.0-99.0[facility] HospitalMonocytes Auto (Bld) [#/Vol]on 78-09-6609Bnhgxhchk (Bld) [#/Vol]0.7 10 3/uL0.3-0.8[facility] HospitalMonocytes/100 WBC Auto (Bld)on 52-70-6765Xxwtsqnmt/100 WBC (Bld)14.2 % 1.7-12.0[facility] HospitalNeutrophils Auto (Bld) [#/Vol]on 15-88-6365Wqsghryzmcq (Bld) [#/Vol]2.8 10 3/uL1.4-6.5FUniversity Hospitals Health SystemNeutrophils/100 WBC Auto (Bld)on 82-54-4241Eixkwgnmmdw/100 WBC (Bld)60.2 % 43.0-75.0[facility] HospitalNo Panel Informationon 02-20-2024 Eosinophils # (Auto)0.1 10 3/uL0.0-0.7FUniversity Hospitals Health SystemImmature Granulocyte # (Auto)0.01 10 3/uL0.00-0.03[facility] Platelet mean volume Auto (Bld) [Entitic vol]on 36-55-4262Dhdxnvqr mean volume (Bld) [Entitic vol]10.5 fL9.5-13.5FUniversity Hospitals Health SystemPlatelets Auto (Bld) [#/Vol]on 78-82-5205Sobguwore (Bld) [#/Vol]250 10 3/yG636-566 [facility] HospitalRBC Auto (Bld) [#/Vol]on 08-40-6201HAB (Bld) [#/Vol]3.25 10 6/uL4.20-5.40[facility] Generalerum or plasma albumin/globulin mass ratioon 70-27-4959Khditeg/Globulin [Mass ratio]1.1 {ratio} [facility] Generalerum or plasma anion gap determinationon 06-02-3738Mimdo gap [Moles/Vol]9.9 mmol/LFUniversity Hospitals Health System Basophils Auto (Bld) [#/Vol]on 52-31-4233Gdddalzan (Bld) [#/Vol]0.0 10 3/uL 0.0-0.1FUniversity Hospitals Health SystemBasophils/100 WBC Auto (Bld)on 69-10-4350Wfsyymemz/100 WBC (Bld)0.8 %0.2-2.0[facility] Cholesterol in LDL Calc [Mass/Vol]on 25-73-3427Tratqfktiwc in LDL [Mass/Vol] 100.4 mg/dLSelect Medical Trihealth Rehabilitation HospitalComment on above:<100 mg/dl VJNAXJL347-148 mg/dl NEAR OR ABOVE LANBJFE707-469 mg/dl BORDERLINE PPVH335-827 mg/dl HIGH>190 mg/dl VERY HIGHCholesterol in VLDL Calc [Mass/Vol]on 02-19-2024 Cholesterol in VLDL [Mass/Vol]15.6 mg/dLSelect Medical Trihealth Rehabilitation Hospital Eosinophils/100 WBC Auto (Bld)on 40-18-6426Ayfcifygxal/100 WBC (Bld)1.9 %0.9-7.0 [facility] HospitalErythrocyte distribution width Auto (RBC) [Ratio]on 76-23-1830Ftbornljxrs distribution width (RBC) [Ratio]13.2 %11.0-15.0 [facility] HospitalEstimated glomerular filtration rate (GFR) non- Americanon 60-85-0345XWY/1.73 sq M.predicted among non-blacks MDRD (S/P/Bld) [Vol rate/Area]44 mL/min/{1.73_m2}>=60[facility] HospitalGlobulin Calc (S) [Mass/Vol]on 36-48-7468Siblqpsg (S) [Mass/Vol]2.8 g/dL [facility] HospitalHematocrit Auto (Bld) [Volume fraction]on 26-75-1716Zahbuxbpiu (Bld) [Volume fraction]31.2 %36.0-48.0[facility] HospitalHemoglobin [Mass/volume] in Bloodon 17-04-8403Yitbkhihhu (Bld) [Mass/Vol]10.0 g/dL12.0-16.0[facility] HospitalLaboratory - Chemistry and Chemistry - challengeon 88-57-2072Sinihek [Mass/Vol]3.2 g/dL 3.4-5.0[facility] HospitalALP [Catalytic activity/Vol]49 U/L46-116 [facility] HospitalALT [Catalytic activity/Vol]15 U/L14-59 [facility] HospitalAST [Catalytic activity/Vol]15 U/L15-37 [facility] HospitalBilirubin [Mass/Vol]0.5 mg/dL0.2-1.0[facility] HospitalCalcium [Mass/Vol]9.4 mg/dL8.5-10.1FUniversity Hospitals Health SystemChloride [Moles/Vol]108 mmol/S33-079FandckuonSelect Medical Trihealth Rehabilitation HospitalCholesterol [Mass/Vol]158 mg/dL<=200[facility] Cholesterol in HDL [Mass/Vol]42 mg/oM25-29YbtatqugiSelect Medical Trihealth Rehabilitation Hospital Comment on above:> or =60 mg/dl - LOW CARDIOVASCULAR RISK<40 mg/dl - HIGH CARDIOVASCULAR RISKCO2 [Moles/Vol]28.7 mmol/L21.0-32.0[facility] HospitalCreatinine [Mass/Vol]1.18 mg/dL0.55-1.02[facility] GFR/1.73 sq M.predicted MDRD (S/P/Bld) [Vol rate/Area]53 mL/min/{1.73_m2}>=60 [facility] HospitalGlucose [Mass/Vol]93 mg/aD21-116JkeoslpcxSelect Medical Trihealth Rehabilitation HospitalPotassium [Moles/Vol]4.0 mmol/L3.5-5.1FUniversity Hospitals Health SystemProtein [Mass/Vol]6.0 g/dL6.4-8.2FUniversity Hospitals Health System Sodium [Moles/Vol]145 mmol/B408-455VkiapebvmSelect Medical Trihealth Rehabilitation HospitalTriglyceride [Mass/Vol]78 mg/dL<=150[facility] HospitalTS Qn4.696 m[IU]/L 0.358-3.740[facility] HospitalUrea nitrogen [Mass/Vol]20.0 mg/dL 7.0-18.0[facility] HospitalUrea nitrogen/Creatinine [Mass ratio] 16.9 mg/mgSelect Medical Trihealth Rehabilitation HospitalLaboratory - Hematology and Cell countson 80-06-4294Obbrcomd granulocytes/100 WBC (Bld)0.6 %0.0-0.5FUniversity Hospitals Health SystemLeukocytes [#/volume] corrected for nucleated erythrocytes in Blood by Automated counon 90-93-4195OGJ corrected for nucl RBC Auto (Bld) [#/Vol]5.3 10 3/uL4.0-11.0[facility] Lymphocytes Auto (Bld) [#/Vol]on 23-63-3743Qqwnzlifkxk (Bld) [#/Vol]1.1 10 3/uL 1.2-3.8[facility] HospitalLymphocytes/100 WBC Auto (Bld)on 62-09-1015Mjxwhsqzjns/100 WBC (Bld)21.3 %20.5-60.0[facility] HospitalMCH Auto (RBC) [Entitic mass]on 29-96-0836RBR (RBC) [Entitic mass]29.6 pg 26.7-34.0[facility] HospitalMCHC Auto (RBC) [Mass/Vol]on 72-51-6819FINE (RBC) [Mass/Vol]32.1 g/dL29.9-35.2FUniversity Hospitals Health SystemMCV Auto (RBC) [Entitic vol]on 59-45-7700BRS (RBC) [Entitic vol]92.3 fL 81.0-99.0[facility] HospitalMonocytes Auto (Bld) [#/Vol]on 69-64-1787Awaesunwz (Bld) [#/Vol]0.6 10 3/uL0.3-0.8[facility] HospitalMonocytes/100 WBC Auto (Bld)on 71-23-2049Mtndwpaal/100 WBC (Bld)11.1 % 1.7-12.0[facility] HospitalNeutrophils Auto (Bld) [#/Vol]on 95-74-3208Ltnozxbtfxs (Bld) [#/Vol]3.4 10 3/uL1.4-6.5FUniversity Hospitals Health SystemNeutrophils/100 WBC Auto (Bld)on 91-63-9669Ezirrxootzb/100 WBC (Bld)64.3 % 43.0-75.0[facility] HospitalNo Panel Informationon 02-19-2024 Eosinophils # (Auto)0.1 10 3/uL0.0-0.7FUniversity Hospitals Health SystemImmature Granulocyte # (Auto)0.03 10 3/uL0.00-0.03[facility] Platelet mean volume Auto (Bld) [Entitic vol]on 00-10-8499Xsctnzyb mean volume (Bld) [Entitic vol]10.4 fL9.5-13.5FUniversity Hospitals Health SystemPlatelets Auto (Bld) [#/Vol]on 00-22-6626Zlhamiowy (Bld) [#/Vol]262 10 3/qO885-382 [facility] HospitalRBC Auto (Bld) [#/Vol]on 31-73-0409XEY (Bld) [#/Vol]3.38 10 6/uL4.20-5.40[facility] Generalerum or plasma albumin/globulin mass ratioon 54-27-9489Ciccogr/Globulin [Mass ratio]1.1 {ratio} [facility] Generalerum or plasma anion gap determinationon 78-28-8049Fmjki gap [Moles/Vol]12.3 mmol/LFGenesis Hospitalerum or plasma total cholesterol/high density lipoprotein (HDL) cholesterol mass rat on 98-39-1825Zwbmokexmwa.total/Cholesterol in HDL [Mass ratio]3.8 {ratio} [facility] HospitalComment on above:3.3 - 4.4 LOW RISK4.4 - 7.1 AVERAGE RISK7.1 - 11.0 MODERATE RISK>11.0 HIGH RISKBasophils Auto (Bld) [#/Vol] on 36-35-5626Imihelfcb (Bld) [#/Vol]0.0 10 3/uL0.0-0.1FUniversity Hospitals Health SystemBasophils/100 WBC Auto (Bld)on 00-25-7523Tsquhhuhb/100 WBC (Bld)0.4 % 0.2-2.0[facility] HospitalEosinophils/100 WBC Auto (Bld)on 31-51-1278Ynrtdtoeuhm/100 WBC (Bld)1.2 %0.9-7.0[facility] Erythrocyte distribution width Auto (RBC) [Ratio]on 24-81-9262Bxmoytdmkne distribution width (RBC) [Ratio]13.2 %11.0-15.0[facility] Estimated glomerular filtration rate (GFR) non- Americanon 02-18-2024 GFR/1.73 sq M.predicted among non-blacks MDRD (S/P/Bld) [Vol rate/Area]34 mL/min/{1.73_m2}>=60[facility] HospitalHematocrit Auto (Bld) [Volume fraction]on 43-42-3126Dvodnsqsdo (Bld) [Volume fraction]31.7 %36.0-48.0 [facility] HospitalHemoglobin [Mass/volume] in Bloodon 02-18-2024 Hemoglobin (Bld) [Mass/Vol]10.3 g/dL12.0-16.0[facility] Laboratory - Chemistry and Chemistry - challengeon 61-33-6092Dlnycdccc [Mass/Vol]2.3 mg/dL1.8-2.4FUniversity Hospitals Health SystemNatriuretic peptide B (Bld) [Mass/Vol]800.0 pg/mL<=1800.0[facility] HospitalCalcium [Mass/Vol]9.0 mg/dL8.5-10.1FUniversity Hospitals Health SystemChloride [Moles/Vol] 106 mmol/B40-297UpfenqwbdSelect Medical Trihealth Rehabilitation HospitalCO2 [Moles/Vol]30.4 mmol/L 21.0-32.0[facility] HospitalCreatinine [Mass/Vol]1.46 mg/dL 0.55-1.02[facility] HospitalGFR/1.73 sq M.predicted MDRD (S/P/Bld) [Vol rate/Area]42 mL/min/{1.73_m2}>=60[facility] HospitalGlucose [Mass/Vol]102 mg/kT27-067PlyeyaphdSelect Medical Trihealth Rehabilitation HospitalPotassium [Moles/Vol] 4.1 mmol/L3.5-5.1FGenesis Hospitalodium [Moles/Vol]144 mmol/L 136-145[facility] HospitalUrea nitrogen [Mass/Vol]21.0 mg/dL 7.0-18.0[facility] HospitalUrea nitrogen/Creatinine [Mass ratio] 14.4 mg/mgSelect Medical Trihealth Rehabilitation HospitalLaboratory - Hematology and Cell countson 41-15-0511Vkqnbewa granulocytes/100 WBC (Bld)0.7 %0.0-0.5FUniversity Hospitals Health SystemLeukocytes [#/volume] corrected for nucleated erythrocytes in Blood by Automated counon 66-16-7390DWR corrected for nucl RBC Auto (Bld) [#/Vol]6.8 10 3/uL4.0-11.0[facility] Lymphocytes Auto (Bld) [#/Vol]on 84-05-2033Vkluzkbrkji (Bld) [#/Vol]0.8 10 3/uL 1.2-3.8[facility] HospitalLymphocytes/100 WBC Auto (Bld)on 35-49-0564Ufxrkxuhilq/100 WBC (Bld)11.2 %20.5-60.0[facility] HospitalH Auto (RBC) [Entitic mass]on 91-42-8175PIS (RBC) [Entitic mass]29.3 pg 26.7-34.0[facility] HospitalMCHC Auto (RBC) [Mass/Vol]on 44-94-4241SINE (RBC) [Mass/Vol]32.5 g/dL29.9-35.2FUniversity Hospitals Health SystemMCV Auto (RBC) [Entitic vol]on 89-08-7808BKQ (RBC) [Entitic vol]90.1 fL 81.0-99.0[facility] HospitalMonocytes Auto (Bld) [#/Vol]on 62-35-9013Xmibsabob (Bld) [#/Vol]0.6 10 3/uL0.3-0.8[facility] HospitalMonocytes/100 WBC Auto (Bld)on 30-51-6714Xipbksbsn/100 WBC (Bld)9.5 % 1.7-12.0[facility] HospitalNeutrophils Auto (Bld) [#/Vol]on 32-76-9182Chmzpqedoag (Bld) [#/Vol]5.2 10 3/uL1.4-6.5FUniversity Hospitals Health SystemNeutrophils/100 WBC Auto (Bld)on 91-63-8412Uwwbdxgigyi/100 WBC (Bld)77.0 % 43.0-75.0[facility] HospitalNo Panel Informationon 02-18-2024 Troponin I High Bsethepcykb39.1 pg/mL4.0-51.3FUniversity Hospitals Health System Comment on above:CUT-OFF POINTS HAVE BEEN ESTABLISHED BASED ON THE FOURTHUNIVERSAL DEFINITION OF MYOCARDIAL INFARCTION. THE UPPERREFERENCE LIMIT (URL) OF TROPONIN, DEFINED THE 99THPERCENTILE OF cTnI DISTRIBUTION IN A REFERENCE POPULATION,HAS BEEN CONFIRMED THE DECISION THRESHOLD FOR MIDIAGNOSIS.99TH PERCENTILE = 51.4 PG/MLNOTE: HIGH-SENSITIVITY TROPONIN ASSAY IS NOT INTENDED TO BEUSED IN ISOLATION BUT SHOULD BE INTERPRETED IN CONJUNCTIONWITH OTHER DIAGNOSTIC AND CLINICAL INFORMATION.Eosinophils # (Auto) 0.1 10 3/uL0.0-0.7FUniversity Hospitals Health SystemImmature Granulocyte # (Auto) 0.05 10 3/uL0.00-0.03[facility] HospitalPlatelet mean volume Auto (Bld) [Entitic vol]on 26-15-6936Xnawrbxu mean volume (Bld) [Entitic vol]10.1 fL 9.5-13.5FUniversity Hospitals Health SystemPlatelets Auto (Bld) [#/Vol]on 47-28-2746Fqjvijagu (Bld) [#/Vol]255 10 3/xO436-776EvxzzjbrmSelect Medical Trihealth Rehabilitation HospitalRBC Auto (Bld) [#/Vol]on 92-98-8908LJC (Bld) [#/Vol]3.52 10 6/uL4.20-5.40 [facility] Generalerum or plasma anion gap determinationon 60-24-8268Yvozt gap [Moles/Vol]11.7 mmol/LFUniversity Hospitals Health System Basophils Auto (Bld) [#/Vol]on 46-29-9111Hariuzlfh (Bld) [#/Vol]0.1 10 3/uL 0.0-0.1FUniversity Hospitals Health SystemBasophils/100 WBC Auto (Bld)on 89-60-2792Ekfxcbdzb/100 WBC (Bld)1.1 %0.2-2.0[facility] Cholesterol in LDL Calc [Mass/Vol]on 25-25-1542Ruuihqwquxi in LDL [Mass/Vol] 113.6 mg/dLSelect Medical Trihealth Rehabilitation HospitalComment on above:<100 mg/dl CDWZHKT848-083 mg/dl NEAR OR ABOVE KQJVJEP725-727 mg/dl BORDERLINE ZUUM959-043 mg/dl HIGH>190 mg/dl VERY HIGHCholesterol in VLDL Calc [Mass/Vol]on 02-02-2024 Cholesterol in VLDL [Mass/Vol]10.4 mg/dLSelect Medical Trihealth Rehabilitation Hospital Eosinophils/100 WBC Auto (Bld)on 80-63-9790Eocpzevdftm/100 WBC (Bld)2.3 %0.9-7.0 [facility] HospitalErythrocyte distribution width Auto (RBC) [Ratio]on 32-95-5128Jasbcfpkijw distribution width (RBC) [Ratio]13.1 %11.0-15.0 [facility] HospitalEstimated glomerular filtration rate (GFR) non- Americanon 62-15-9580SKH/1.73 sq M.predicted among non-blacks MDRD (S/P/Bld) [Vol rate/Area]34 mL/min/{1.73_m2}>=60[facility] HospitalGlobulin Calc (S) [Mass/Vol]on 86-52-2445Kqfcjrto (S) [Mass/Vol]3.0 g/dL [facility] HospitalHematocrit Auto (Bld) [Volume fraction]on 11-78-3899Kzkqkhhsel (Bld) [Volume fraction]34.7 %36.0-48.0[facility] HospitalHemoglobin [Mass/volume] in Bloodon 99-47-2383Xpkzkwxfkm (Bld) [Mass/Vol]10.9 g/dL12.0-16.0[facility] HospitalLaboratory - Chemistry and Chemistry - challengeon 37-03-2288Hdqwegb [Mass/Vol]3.4 g/dL 3.4-5.0[facility] HospitalALP [Catalytic activity/Vol]52 U/L46-116 [facility] HospitalALT [Catalytic activity/Vol]13 U/L14-59 [facility] HospitalAST [Catalytic activity/Vol]14 U/L15-37 [facility] HospitalBilirubin [Mass/Vol]0.3 mg/dL0.2-1.0[facility] HospitalCalcium [Mass/Vol]9.3 mg/dL8.5-10.1FUniversity Hospitals Health SystemChloride [Moles/Vol]109 mmol/U50-736ZmjsmwllySelect Medical Tri[facility] Rehabilitation HospitalCholesterol [Mass/Vol]169 mg/dL<=200[facility] Cholesterol in HDL [Mass/Vol]45 mg/nO83-92WenejgqvqSelect Medical [facility]health Rehabilitation Hospital Comment on above:> or =60 mg/dl - LOW CARDIOVASCULAR RISK<40 mg/dl - HIGH CARDIOVASCULAR RISKCO2 [Moles/Vol]29.8 mmol/L21.0-32.0[facility] HospitalCreatinine [Mass/Vol]1.47 mg/dL0.55-1.02[facility] GFR/1.73 sq M.predicted MDRD (S/P/Bld) [Vol rate/Area]41 mL/min/{1.73_m2}>=60 [facility] HospitalGlucose [Mass/Vol]104 mg/cI35-937VrunoyxinSelect Medical Trihealth Rehabilitation HospitalPotassium [Moles/Vol]4.9 mmol/L3.5-5.1FUniversity Hospitals Health SystemProtein [Mass/Vol]6.4 g/dL6.4-8.2FUniversity Hospitals Health System Sodium [Moles/Vol]147 mmol/H173-751JjxqdegngSelect Medical Trihealth Rehabilitation HospitalTriglyceride [Mass/Vol]52 mg/dL<=150[facility] HospitalTS Qn3.613 m[IU]/L 0.358-3.740[facility] HospitalUrea nitrogen [Mass/Vol]24.0 mg/dL 7.0-18.0[facility] HospitalUrea nitrogen/Creatinine [Mass ratio] 16.3 mg/mgSelect Medical Trihealth Rehabilitation HospitalLaboratory - Hematology and Cell countson 01-44-6287Jwlmwbrq granulocytes/100 WBC (Bld)0.4 %0.0-0.5FUniversity Hospitals Health SystemLeukocytes [#/volume] corrected for nucleated erythrocytes in Blood by Automated counon 96-13-9869XIM corrected for nucl RBC Auto (Bld) [#/Vol]5.6 10 3/uL4.0-11.0[facility] Lymphocytes Auto (Bld) [#/Vol]on 71-97-9036Sadvmswcaby (Bld) [#/Vol]1.1 10 3/uL 1.2-3.8[facility] HospitalLymphocytes/100 WBC Auto (Bld)on 51-62-0038Skzqnuohnar/100 WBC (Bld)20.2 %20.5-60.0[facility] Auto (RBC) [Entitic mass]on 79-78-7201EMZ (RBC) [Entitic mass]29.8 pg 26.7-34.0[facility] HospitalMCHC Auto (RBC) [Mass/Vol]on 78-91-5489NPPP (RBC) [Mass/Vol]31.4 g/dL29.9-35.2FUniversity Hospitals Health SystemMCV Auto (RBC) [Entitic vol]on 81-95-0625WPQ (RBC) [Entitic vol]94.8 fL 81.0-99.0[facility] HospitalMonocytes Auto (Bld) [#/Vol]on 61-47-2977Krsiariwy (Bld) [#/Vol]0.7 10 3/uL0.3-0.8[facility] HospitalMonocytes/100 WBC Auto (Bld)on 31-41-1600Bfnddlxxw/100 WBC (Bld)11.7 % 1.7-12.0[facility] HospitalNeutrophils Auto (Bld) [#/Vol]on 79-60-1159Xcvedxhgehs (Bld) [#/Vol]3.6 10 3/uL1.4-6.5FUniversity Hospitals Health SystemNeutrophils/100 WBC Auto (Bld)on 97-24-1697Vtgrwiddcwj/100 WBC (Bld)64.3 % 43.0-75.0[facility] HospitalNo Panel Informationon 02-02-2024 Eosinophils # (Auto)0.1 10 3/uL0.0-0.7FUniversity Hospitals Health SystemImmature Granulocyte # (Auto)0.02 10 3/uL0.00-0.03[facility] Platelet mean volume Auto (Bld) [Entitic vol]on 06-16-2822Rvlgyysl mean volume (Bld) [Entitic vol]10.6 fL9.5-13.5FUniversity Hospitals Health SystemPlatelets Auto (Bld) [#/Vol]on 35-80-9424Dzrvxdjvv (Bld) [#/Vol]253 10 3/cV406-715 [facility] HospitalRBC Auto (Bld) [#/Vol]on 49-03-6070NOG (Bld) [#/Vol]3.66 10 6/uL4.20-5.40[facility] Generalerum or plasma albumin/globulin mass ratioon 39-83-0771Ncwxmtd/Globulin [Mass ratio]1.1 {ratio} [facility] Generalerum or plasma anion gap determinationon 77-82-9741Hraye gap [Moles/Vol]13.1 mmol/LFGenesis Hospitalerum or plasma total cholesterol/high density lipoprotein (HDL) cholesterol mass rat on 73-46-5590Stjkkzrjunr.total/Cholesterol in HDL [Mass ratio]3.8 {ratio} [facility] HospitalComment on above:3.3 - 4.4 LOW RISK4.4 - 7.1 AVERAGE RISK7.1 - 11.0 MODERATE RISK>11.0 HIGH RISKUA RANDOM W/MICROSCOPICon 14-08-3856Tltqlju (U)CLEARCLEARAlignment [employer] (deja mi) Other Color (U)DK YELLOWYELLOWDe [place] [employer] (deja mi) Other Ketones Ql (U)NegativeNEGATIVE mg/dLDe Borgia [employer] (deja mi) Other Leukocyte esterase Test strip Ql (U)NegativeNEGATIVE [employer] Other pH (U)6.5 [pH]5.0-9.0[place] [employer] (de[place] mi) Other ua RANDOM W/MICROSCOPIC0-2 #/HPFAbnormalNONE SEEN #/HPFDe [place]ia [employer] (deja mi) Other ua RANDOM W/MICROSCOPIC5-10 #/HPFAbnormal0-2 #/HPF [place] [employer] (deja mi) Other ua RANDOM W/MICROSCOPICsee noteNosaint joseph hospital of [facility] Wed[employer] (deja mi) Other ua RANDOM W/MICROSCOPIC1.0101.005-1.025[place] [employer] (deja mi) Other ua RANDOM W/MICROSCOPICNegativeNEGATIVERemark Media Other ua RANDOM W/MICROSCOPICLARGEAbnormOneTokNEGvLex [employer] (deja mi) Other ua RANDOM W/MICROSCOPICPositiveAbnormalNEGModular RoboticsAlignment Acquisitions [employer] (deja mi) Other UA RANDOM W/MICROSCOPIC1.0 EU/dL0.2-1.0 EU/dLNosaint joseph hospital of [facility] [employer] (deja mi) Other UA RANDOM W/MICROSCOPICTRACE #/HPFAbnormalNONE SEEN #/HPFDe [place]ia [employer] (deja mi) Other ua RANDOM W/MICROSCOPICNONE SEENNONE SEENState Mental Health Facility cheerapp Other ua RANDOM W/MICROSCOPICRARE #/LPFNONE/RARE #/LPFState Mental Health Facility cheerapp Other ua RANDOM W/MICROSCOPICNone Seen #/HPFNone Seen #/HPF [facility] [employer] Other ua RANDOM W/MICROSCOPICNONE SEEN #/LPFNONE SEEN #/LPF [facility] [employer] Other Urinalysis - DIPSTICKon 41-84-3587Adobwyghmw (U)clear [place] [employer] (deja mi) Other Bilirubin Ql (U)NegativeDe [place] [employer] (deja mi) Other Color (U)light yellowDe Borgia [employer] (deja mi) Other Glucose Ql (U)[facility] [employer] (deja mi) Other Hemoglobin Ql (U)+++[place] [employer] (deja mi) Other Ketones Ql (U)NegativeDe [place]ia [employer] (deja mi) Other Leukocyte esterase Test strip Ql (U)NegativeDe [place]ia [employer] (deja mi) Other Nitrite Ql (U)NegativeDe [place]ia [employer] (deja mi) Other pH (U)0.2 [pH][employer] Other Protein Ql (U)traceDe Borgia [employer] (deja mi) Other Specific gravity (U) [Rel density]1.005[place] [employer] (deja mi) Other Urobilinogen (U) [Mass/Vol]off chartDe Borgia [employer] (deja mi) Other Urinalysis - DIPSTICKNorth WedPics (deja mi) Other ESR Westergren method (Bld) [Velocity]on 28-36-2838PVH (Bld) [Velocity]119 mm/hHigh0 - 20 mm/hrClinton Memorial HospitalFERRITIN BLDon 69-66-9993Qnlgvguv [Mass/Vol]160.0 ng/mL14.7 - 205.1 ng/mLCleveland Riverview Health ClinicIron and Iron binding capacity panelon 55-09-0259Xxyq [Mass/Vol]45 ug/dL41 - 186 ug/dLClinton Memorial HospitalIron binding capacity [Mass/Vol]252 ug/dL232 - 386 ug/dL [facility] HospitalIron/TIBC [Molar ratio]17.9 %15.0 - 57.0 %[facility] metabolic 2000 panelon 75-16-3439Mxoki gap [Moles/Vol]10 mmol/L9 - 18 mmol/L [facility] HospitalCalcium [Mass/Vol]9.2 mg/dL8.5 - 10.2 mg/dLClinton Memorial Hospital Chloride [Moles/Vol]106 mmol/LHigh97 - 105 mmol/LCleveland ClinicCO2 [Moles/Vol] 27 mmol/L22 - 30 mmol/LCleveland Riverview Health ClinicCreatinine [Mass/Vol]1.09 mg/dLHigh0.58 - 0.96 mg/dLClinton Memorial HospitalEstimated Glomerular Filtration Rate51 mL/min/1.73m Low>=60 mL/min/1.73mCleveland Riverview Health ClinicGlucose [Mass/Vol]116 mg/yXGccy57 - 99 mg/dL [facility] HospitalPotassium [Moles/Vol]4.3 mmol/L3.7 - 5.1 mmol/LCleveland Riverview [facility] Clinic Sodium [Moles/Vol]143 mmol/L136 - 144 mmol/LCleveland Riverview Health ClinicUrea nitrogen [Mass/Vol]19 mg/dL7 - 21 mg/dLThe [facility] W Auto Differential panel (Bld)on 84-41-6745Zeartbzxf (Bld) [#/Vol]0.04 10*3/uL<0.11 k/uLClinton Memorial Hospital Basophils/100 WBC (Bld)0.8 %[facility] HospitalDifferential cell count method Nom (Bld)AutoCleveland ClinicEosinophils (Bld) [#/Vol]0.14 10*3/uL<0.46 k/uL [facility] HospitalEosinophils/100 WBC (Bld)2.9 %[facility] HospitalErythrocyte distribution width (RBC) [Ratio]13.6 %11.5 - 15.0 %[facility] HospitalHematocrit (Bld) [Volume fraction]28.8 %Low36.0 - 46.0 %[facility] HospitalHemoglobin (Bld) [Mass/Vol]9.2 g/dLLow11.5 - 15.5 g/dLClinton Memorial HospitalImmature granulocytes (Bld) [#/Vol]<0.10 k/uLClinton Memorial HospitalImmature granulocytes/100 WBC (Bld)0.4 % [facility] HospitalLymphocytes (Bld) [#/Vol]0.83 10*3/uLLow1.00 - 4.00 k/uL [facility] HospitalLymphocytes/100 WBC (Bld)17.4 %[facility] HospitalH (RBC) [Entitic mass]29.6 pg26.0 - 34.0 pgClevelWinona Community Memorial HospitalHC (RBC) [Mass/Vol]31.9 g/dL30.5 - 36.0 g/dLFayette County Memorial HospitalV (RBC) [Entitic vol]92.6 fL80.0 - 100.0 fLCleveland ClinicMonocytes (Bld) [#/Vol]0.40 10*3/uL<0.87 k/uLClinton Memorial Hospital Monocytes/100 WBC (Bld)8.4 %[facility] HospitalNeutrophils (Bld) [#/Vol]3.35 10*3/uL1.45 - 7.50 k/uLClinton Memorial HospitalNeutrophils/100 WBC (Bld)70.1 %[facility] HospitalNucleated RBC (Bld) [#/Vol]<0.01 k/uLClinton Memorial HospitalNucleated RBC/100 WBC (Bld) [Ratio]0.0 /100 WBCClinton Memorial HospitalPlatelet mean volume (Bld) [Entitic vol]10.2 fL9.0 - 12.7 fLCleveland ClinicPlatelets (Bld) [#/Vol]274 10*3/uL150 - 400 k/uLClinton Memorial HospitalRBC (Bld) [#/Vol]3.11 10*6/uLLow3.90 - 5.20 m/uL [facility] HospitalWBC (Bld) [#/Vol]4.78 10*3/uL3.70 - 11.00 k/uLClinton Memorial Hospital RETIC COUNTon 19-90-0070Bemsgtrgpipcm (Bld) [#/Vol]0.47038 10*3/uL0.018 - 0.100 M/uLClinton Memorial HospitalReticulocytes (Bld) [#/Vol]on 44-05-9348Cdkwwegpkcxmr/100 RBC (Bld)2.0 %0.4 - 2.0 %[facility] HospitalBasophils Auto (Bld) [#/Vol]Ordered By: Lj Ryan on 08-57-7618Ojxvqantn (Bld) [#/Vol]0.0 10*3/uL0.0-0.2FUniversity Hospitals Health SystemBasophils/100 WBC Auto (Bld)Ordered By: Lj Ryan on 93-60-7405Syslmdycz/100 WBC (Bld)0.7 %.[facility] HospitalCalcium [Mass/volume] in Serum or PlasmaOrdered By: Lj Ryan on 76-04-7770Yzkjheh [Mass/Vol]8.9 mg/dL8.6-10.3FUniversity Hospitals Health SystemCarbon dioxide, total [Moles/volume] in Serum or PlasmaOrdered By: Lj Ryan on 81-82-4826XU4 [Moles/Vol]30.5 mmol/L21.0-31.0[facility] HospitalChloride [Moles/volume] in Serum or PlasmaOrdered By: Lj Ryan on 20-72-8674Wqltfwhx [Moles/Vol]103 mmol/H25-530UcofzuwjlSelect Medical Trihealth Rehabilitation HospitalCreatinine [Mass/volume] in Serum or PlasmaOrdered By: Lj Ryan on 60-70-8006Qdovdqntbk [Mass/Vol]1.37 mg/dL0.60-1.20[facility] HospitalEosinophils Auto (Bld) [#/Vol]Ordered By: Lj Ryan on 05-39-9487Higmootjjqx (Bld) [#/Vol]0.1 10*3/uL0.0-0.45[facility] HospitalEosinophils/100 WBC Auto (Bld) Ordered By: Lj Ryan on 08-29-6608Fjycjspnqtx/100 WBC (Bld)1.9 %.[facility] HospitalErythrocyte distribution width Auto (RBC) [Ratio]Ordered By: Lj Ryan on 65-37-7277Wzxmunzrctj distribution width (RBC) [Ratio]14.1 % 11.9-15.3FUniversity [facility] SystemGlucose [Mass/volume] in Serum or PlasmaOrdered By: Lj Ryan on 07-14-0842Nbvznoq [Mass/Vol]94 mg/lB63-505 [facility] HospitalComment on above:ADA recommended reference rangeRandom Glucose Reference Range is dependent on time and content of last meal. Glucose of more than 200 mg/dL in a nonstressed, ambulatory subject supports the diagnosisof Diabetes Mellitus.Hematocrit Auto (Bld) [Volume fraction]Ordered By: Lj Ryan on 68-74-4599Yvgaszgkqn (Bld) [Volume fraction]28.2 %34.0-46.4FUniversity Hospitals Health SystemHemoglobin [Mass/volume] in BloodOrdered By: Lj Ryan on 46-02-6735Iogydrebaz (Bld) [Mass/Vol]9.7 g/dL11.8-15.4FUniversity Hospitals Health SystemLeukocytes [#/volume] corrected for nucleated erythrocytes in Blood by Automated coun Ordered By: Lj Ryan on 29-98-9811SPT corrected for nucl RBC Auto (Bld) [#/Vol]6.0 10*3/uL3.8-11.6FUniversity Hospitals Health SystemLymphocytes Auto (Bld) [#/Vol]Ordered By: Lj Ryan on 53-33-2739Nblicuksxna (Bld) [#/Vol]0.9 10*3/uL1.00-4.8[facility] HospitalLymphocytes/100 WBC Auto (Bld) Ordered By: Lj Ryan on 90-35-7507Hhzzxepnxph/100 WBC (Bld)15.1 %.[facility] HospitalH Auto (RBC) [Entitic mass]Ordered By: Lj Ryan on 96-71-4773FQH (RBC) [Entitic mass]30.2 pg24.7-34.3FUniversity Hospitals Health SystemMCHC Auto (RBC) [Mass/Vol]Ordered By: Lj Ryan on 80-84-7033TVOI (RBC) [Mass/Vol]34.4 g/dL32.0-35.0[facility] HospitalMCV Auto (RBC) [Entitic vol]Ordered By: Lj Ryan on 46-04-1031YTN (RBC) [Entitic vol]87.7 yR02-783VpsiuvteiSelect Medical Trihealth Rehabilitation HospitalMagnesium [Mass/volume] in Serum or PlasmaOrdered By: Lj Ryan on 12-17-8041Focjsmusj [Mass/Vol]2.1 mg/dL1.9-2.7 [facility] HospitalMonocytes Auto (Bld) [#/Vol]Ordered By: Lj Ryan on 77-69-9182Smfnwrbiq (Bld) [#/Vol]0.5 10*3/uL0.0-0.8[facility] HospitalMonocytes/100 WBC Auto (Bld)Ordered By: Lj Ryan on 05-18-2023 Monocytes/100 WBC (Bld)8.7 %.[facility] HospitalNeutrophils Auto (Bld) [#/Vol]Ordered By: Lj Ryan on 25-02-7970Molxqdvuvvu (Bld) [#/Vol]4.4 10*3/uL1.8-7.7FUniversity Hospitals Health SystemNeutrophils/100 WBC Auto (Bld) Ordered By: Lj Ryan on 99-02-6205Ztmffwzdtej/100 WBC (Bld)73.6 %.[facility] HospitalNo Panel InformationOrdered By: Lj Ryan on 93-31-7680Uwuxncbqz GFR (CKD-EPI)39.034 mL/MinSelect Medical Trihealth Rehabilitation Hospital Pharmacy Creatinine Clearance (Chem38.04[facility] Nucleated erythrocytes [Presence] in Blood by Automated countOrdered By: Lj Ryan on 12-33-8195Idvhzsezp RBC Auto Ql (Bld)0.1 /100{WBC}0-0.5FUniversity Hospitals Health SystemPhosphate [Mass/volume] in Serum or PlasmaOrdered By: Lj Ryan on 85-33-1226Grdhflefr [Mass/Vol]5.3 mg/dL3.7-7.2FUniversity Hospitals Health SystemPlatelet mean volume Auto (Bld) [Entitic vol]Ordered By: Lj Ryan on 58-24-8866Dzvtrosa mean volume (Bld) [Entitic vol]7.8 fL6.3-10.7 [facility] HospitalPlatelets Auto (Bld) [#/Vol]Ordered By: Lj Ryan on 82-72-1081Nxrfcfdlt (Bld) [#/Vol]314 10*3/zA527-341UftziseoiSelect Medical Trihealth Rehabilitation HospitalPotassium [Moles/volume] in Serum or PlasmaOrdered By: Lj Ryan on 79-03-6753Vnaliyddf [Moles/Vol]4.0 mmol/L3.5-5.1FUniversity Hospitals Health SystemRBC Auto (Bld) [#/Vol]Ordered By: Lj Ryan on 20-77-8001DEA (Bld) [#/Vol]3.21 10*6/uL3.60-5.00[facility] Generalerum or plasma anion gap determinationOrdered By: Lj Ryan on 23-31-0331Hwvux gap [Moles/Vol]12.5 mmol/L6.0-15.0[facility] Generalodium [Moles/volume] in Serum or PlasmaOrdered By: Lj Ryan on 02-46-3765Igwcjw [Moles/Vol]142 mmol/L462-566NboweaagcSelect Medical Trihealth Rehabilitation HospitalUrea nitrogen [Mass/volume] in Serum or PlasmaOrdered By: Lj Ryan on 72-28-9495Ulzt nitrogen [Mass/Vol]21 mg/dL7-25[facility] HospitalWBC Auto (Bld) [#/Vol]Ordered By: Lj Ryan on 43-97-3290NGM (Bld) [#/Vol]6.0 10*3/uL 3.8-11.6FUniversity Hospitals Health SystemAlanine aminotransferase [Enzymatic activity/volume] in Serum or PlasmaOrdered By: Fernando Ch on 07-00-4082HOW [Catalytic activity/Vol]14 U/L7-52[facility] HospitalAlbumin [Mass/volume] in Serum or Plasma by Bromocresol green (BCG) dye binding metho Ordered By: Fernando Ch on 15-66-2856Lxdffjx BCG dye [Mass/Vol]4.0 g/dL3.5-5.7 [facility] HospitalAlkaline phosphatase [Enzymatic activity/volume] in Serum or PlasmaOrdered By: Fernando Ch on 43-39-4386OUR [Catalytic activity/Vol]44 U/S39-896VilmjelckSelect Medical Trihealth Rehabilitation HospitalAspartate aminotransferase [Enzymatic activity/volume] in Serum or PlasmaOrdered By: Fernando Ch on 44-00-9294XYZ [Catalytic activity/Vol]16 U/D02-70QwsqdjqhdSelect Medical Trihealth Rehabilitation HospitalBilirubin.total [Mass/volume] in Serum or PlasmaOrdered By: Fernando Ch on 09-18-0225Awvnkwxsm [Mass/Vol]0.7 mg/dL0.3-1.0[facility] HospitalCreatine kinase [Enzymatic activity/volume] in Serum or Plasma Ordered By: Fernando Ch on 74-35-8451YP [Catalytic activity/Vol]49 U/L30-223 [facility] HospitalGlobulin Calc (S) [Mass/Vol]Ordered By: Fernando Ch on 50-73-0114Oshgaojw (S) [Mass/Vol]2.9 g/dLSelect Medical Trihealth Rehabilitation HospitalLaboratory - CoagulationOrdered By: Fernando Ch on 20-75-8800DC Coag (PPP) [Time]12.5 s9.0-12.9[facility] HospitalMonocyte distribution width [Entitic volume] in Blood by AutomatedOrdered By: Fernando Ch on 86-37-3488Idafnqeo distribution width Auto (Bld) [Entitic vol]22.37 %0.00-20.00 [facility] HospitalComment on above:For adults in ED, MDW > 20.0 may be associated with a higher risk of sepsis during the first 12 hrs of hospital admissionNatriuretic peptide B [Mass/Vol]Ordered By: Fernando Ch on 28-63-7374Yewvhfstqws peptide B (Bld) [Mass/Vol]450.0 pg/mL5-100[facility] HospitalPlatelet poor plasma international normalized ratio (INR) by coagulation assay (relatOrdered By: Fernando Ch on 36-91-8703NXO Coag (PPP) [Relative time]1.1 {INR}[facility] HospitalComment on above: INR Therapeutic Range A) Pre- and Peroperative OAT started two weeks before surgery. NOT HIP SURGERY: 1.5 - 2.5 HIP SURGERY: 2 - 3B) Primary and secondary prevention of venous THROMBOSIS: 2 - 3C) Active venous thrombosis, pulmonary embolismand prevention of recurrent venous thrombosis: 2 - 3D) Prevention of arterial thromboembolismincluding patients with mechanical heart valves: 3 - 4.5 Protein [Mass/volume] in Serum or PlasmaOrdered By: Fernando Ch on 05-17-2023 Protein [Mass/Vol]6.9 g/dL6.4-8.9[facility] Generalerum or plasma albumin/globulin mass ratioOrdered By: Fernando Ch on 05-17-2023 Albumin/Globulin [Mass ratio]1.4 {ratio}[facility] Troponin I.cardiac [Mass/volume] in Serum or Plasma by Detection limit <= 0.01 ng/Ordered By: Fernando Ch on 12-43-1657Ooecumme I.cardiac DL <= 0.01 ng/mL [Mass/Vol]10.2 pg/mL0.0-15.0[facility] HospitalActivated partial thromboplastin time (aPTT) in platelet poor plasma by coagulation aOrdered By: Jonna Perry on 16-56-6378fTZG Coag (PPP) [Time]32.0 s25.1-36.5FUniversity Hospitals Health SystemBand form neutrophils/100 WBC Manual cnt (Bld)Ordered By: Jonna Perry on 68-37-4717Epqi form neutrophils/100 WBC (Bld)4 %0-5FUniversity Hospitals Health SystemBasophils Auto (Bld) [#/Vol]Ordered By: Jonna Perry on 03-08-2023 Basophils (Bld) [#/Vol]N/[facility] SystemBasophils/100 WBC Auto (Bld)Ordered By: Jonna Perry on 24-66-9957Kyjpnvovd/100 WBC (Bld)[facility] CenterBasophils/100 WBC Manual cnt (Bld)Ordered By: Jonna Perry on 88-24-7415Mfvvihvme/100 WBC (Bld)0 %0-2FUniversity Hospitals Health System Carbon dioxide, total [Moles/volume] in Serum or PlasmaOrdered By: Jonna Perry on 96-28-2272SC2 [Moles/Vol]33.1 mmol/L21.0-31.0[facility] Chloride [Moles/volume] in Serum or PlasmaOrdered By: Jonna Perry on 03-08-2023 Chloride [Moles/Vol]104 mmol/A88-311FucvxyhpnSelect Medical Trihealth Rehabilitation HospitalCholesterol [Mass/volume] in Serum or PlasmaOrdered By: Jonna Perry on 17-24-0690Ekajgoqyrrb [Mass/Vol]151 mg/kE776-072KjgnbnjtuSelect Medical Trihealth Rehabilitation HospitalComment on above:Chol less than 200 mg/dl low riskChol 201-239 mg/dl borderline riskChol 240 mg/dl and greater high riskCholesterol in LDL Calc [Mass/Vol]Ordered By: Jonna Perry on 19-12-6084Stukgjzyufi in LDL [Mass/Vol]100 mg/dL0-100[facility] HospitalComment on above:LDL ATP III CLASSIFICATIONLDL less than 100 mg/dL OptimalLDL 100-129 mg/dL Near or above lfageozCBL946-786 mg/dL Borderline highLDL 160-189 mg/dL HighLDL greater than 189 mg/dL Very highCholesterol in VLDL Calc [Mass/Vol]Ordered By: Jonna Perry on 05-32-9167Rmwvujtbuad in VLDL [Mass/Vol]13 mg/dLSelect Medical Trihealth Rehabilitation HospitalCreatinine [Mass/volume] in Serum or PlasmaOrdered By: Jonna Perry on 32-16-0594Mmhuewoknm [Mass/Vol]1.14 mg/dL0.60-1.20[facility] HospitalEosinophils Auto (Bld) [#/Vol] Ordered By: Jonna Perry on 53-24-3778Iihsqnjitpl (Bld) [#/Vol]N/[facility] SystemEosinophils/100 WBC Auto (Bld)Ordered By: Jonna Perry on 93-32-6096Nxkdnclugzn/100 WBC (Bld)N/[facility] Eosinophils/100 WBC Manual cnt (Bld)Ordered By: Jonna Perry on 03-08-2023 Eosinophils/100 WBC (Bld)2 %1-3FUniversity Hospitals Health SystemErythrocyte distribution width Auto (RBC) [Ratio]Ordered By: Jonna Perry on 03-08-2023 Erythrocyte distribution width (RBC) [Ratio]14.1 %11.9-15.3FUniversity Hospitals Health SystemHematocrit Auto (Bld) [Volume fraction]Ordered By: Jonna Perry on 24-69-9261Nvcvbfojru (Bld) [Volume fraction]30.7 %34.0-46.4FUniversity Hospitals Health SystemHemoglobin [Mass/volume] in BloodOrdered By: Jonna Perry on 57-12-1412Dullqwmdgu (Bld) [Mass/Vol]10.3 g/dL11.8-15.4FUniversity Hospitals Health SystemLaboratory - Chemistry and Chemistry - challengeon 03-08-2023 Cholesterol [Mass/Vol]151\S\887Urminf037-357FX-[facility]anzuDe[facility] 250 DO Work Phone: Comment on above:Chol less than 200 mg/dl low risk Chol 201-239 mg/dl borderline risk Chol 240 mg/dl and greater high risk Cholesterol in LDL [Mass/Vol]100\S\263Ofguwt8-120QD-DbcysDeer River Health Care [facility] 250 DO Work Phone: Comment on above:LDL ATP III CLASSIFICATION LDL less than 100 mg/dL Optimal LDL 100-129 mg/dL Near or above optimal LDL 130-159 mg/dL Borderline high LDL 160-189 mg/dL High LDL greater than 189 mg/dL Very high Laboratory - CoagulationOrdered By: Jonna Perry on 44-82-9570JO Coag (PPP) [Time] 12.2 s9.0-12.9[facility] HospitalLeukocytes [#/volume] corrected for nucleated erythrocytes in Blood by Automated counOrdered By: Jonna Perry on 84-12-8709QBE corrected for nucl RBC Auto (Bld) [#/Vol]6.2 10*3/uL3.8-11.6 [facility] HospitalLymphocytes Auto (Bld) [#/Vol]Ordered By: Jonna Perry on 11-36-8710Hiogtfhhkik (Bld) [#/Vol]N/[facility] SystemLymphocytes/100 WBC Auto (Bld)Ordered By: Jonna Perry on 03-08-2023 Lymphocytes/100 WBC (Bld)N/[facility] SystemLymphocytes/100 WBC Manual cnt (Bld)Ordered By: Jonna Perry on 13-33-7406Txtrzvepikg/100 WBC (Bld)16 %18-42[facility] HospitalH Auto (RBC) [Entitic mass]Ordered By: Jonna Perry on 20-11-1269TMW (RBC) [Entitic mass]29.0 pg24.7-34.3FUniversity Hospitals Health SystemMCHC Auto (RBC) [Mass/Vol]Ordered By: Jonna Perry on 28-97-8728USTD (RBC) [Mass/Vol]33.6 g/dL32.0-35.0[facility] HospitalMCV Auto (RBC) [Entitic vol]Ordered By: Jonna Perry on 54-41-5436XAM (RBC) [Entitic vol]86.2 xJ41-671PbyjcjwxiSelect Medical Trihealth Rehabilitation HospitalMetamyelocytes/100 WBC Manual cnt (Bld)Ordered By: Jonna Perry on 47-44-6546Xjnzcysokhkrtw/100 WBC (Bld)1 %0-0[facility] HospitalMonocytes Auto (Bld) [#/Vol]Ordered By: Jonna Perry on 04-90-2833Xvbadtpfz (Bld) [#/Vol]N/[facility] SystemMonocytes/100 WBC Auto (Bld)Ordered By: Jonna Perry on 03-08-2023 Monocytes/100 WBC (Bld)N/[facility] SystemMonocytes/100 WBC Manual cnt (Bld)Ordered By: Jonna Perry on 22-83-4311Poippdfyr/100 WBC (Bld)3 % 2-[facility] HospitalNeutrophils Auto (Bld) [#/Vol]Ordered By: Jonna Perry on 91-95-9212Tvuwnhpgujd (Bld) [#/Vol]N/[facility] SystemNeutrophils/100 WBC Auto (Bld)Ordered By: Jonna Perry on 03-08-2023 Neutrophils/100 WBC (Bld)N/[facility] SystemNo Panel InformationOrdered By: Jonna Perry on 44-54-2296Vjovulqic GFR (CKD-EPI)48.665 mL/MinSelect Medical Trihealth Rehabilitation HospitalPharmacy Creatinine Clearance (ChemN/A [facility] HospitalNo Panel Informationon 38-42-592316.0\S\32.0 Kpygkm23.1-36.5MP-[facility] 250 DO Work Phone: Comment on above:PERFORMED BY:[place] [address] [address] [place], [place] [phone] MEDICAL DIRECTORJAMAAL MO M.D.1.1\S\1.1NormalMP-[facility] CenterAlixaRxMount [facility]asant 250 DO Work Phone: Comment on above:INR Therapeutic Range A) Pre- and Peroperative OAT started two weeks before surgery. NOT HIP SURGERY: 1.5 - 2.5 HIP SURGERY: 2 - 3 B) Primary and secondary prevention of venous THROMBOSIS: 2 - 3 C) Active venous thrombosis, pulmonary embolism and prevention of recurrent venous thrombosis: 2 - 3 D) Prevention of arterial thromboembolism including patients with mechanical heart valves: 3 - 4.512.2\S\12.0Agjydv6.0-12.9MP-[facility] 250 DO Work Phone: [phone]\S\9.6Uylrho8.3-10.7MP-[facility] 250 DO Work Phone: [phone]\S\33.1above high ucmrfszpx78.0-31.0MP-[facility] 250 DO Work Phone: [phone]\S\567Exdxth25-359DF-Oucey [place] [facility] 250 DO Work Phone: [phone]\S\5.7Qvrdvv4.5-5.1MP-[facility] 250 DO Work Phone: [phone]\S\678Izlbop810-960GX-Gvnth [place] [facility] 250 DO Work Phone: [phone]\S\98Tjlqdf2-16TO-Wzcus [place] [facility] 250 DO Work Phone: [phone]\S\48.665NormalMP-[facility] 250 DO Work Phone: [phone]\S\1.67Ewgbqk7.60-1.20MP-[facility] 250 DO Work Phone: [phone]\S\4.0Normal<5.0MP-[facility] 250 DO Work Phone: Comment on above:PERFORMED BY:[place] [id number] [place], [place] [phone] MEDICAL DIRECTORJAMAAL MO M.D.13\S\13NormalMP-[facility] 250 DO Work Phone: [phone]\S\54Pvsxjf8-099VV-Kkftm [place] [facility] 250 DO Work Phone: Comment on above:TRIG ATP III CLASSIFICATION TRIG less than 150 mg/dL Normal TRIG 150-199 mg/dL Borderline high UZSW631-580 mg/dL High TRIG greater than 500 mg/dL Very high Standard traceable to the Center for Disease Conrtrol and Prevention (CDC) test method.38\S\73Opynoj86-46HB-Hwqqy [place] [facility] 250 DO Work Phone: Comment on above:HDL CHOL ATP-III CLASSIFICATION Cardiovascular Risk HDL > or equal to 60 mg/dL LOW HDL < 40 mg/dL HIGH74\S\74 above high eirxkmblx35-48QQ-Vjcwo [place] [facility] 250 DO Work Phone: [phone]\S\953Cldpoq839-245QK-Deohm [place] [facility] 250 DO Work Phone: [phone]\S\14.6Sdnvlx16.9-15.3MP-[facility] 250 DO Work Phone: [phone]\S\33.9Lfxfbs80.0-35.0MP-[facility] 250 DO Work Phone: [phone]\S\29.1Aynjiv54.7-34.3MP-[facility] 250 DO Work Phone: [phone]\S\1above high fwreyxtls2-3VC-Vsgew [place] [facility] [place] 250 DO Work Phone: [phone]\S\9Xfxnsd0-9HK-Ierjf [place] [facility] 250 DO Work Phone: [phone]\S\9Uvmery2-4JF-Zabvw [place] [facility] 250 DO Work Phone: [phone]\S\5Linoie4-24RO-Hrwtw [place] [facility] 250 DO Work Phone: [phone]\S\16below low ycztszgkx60-96XM-Lyxgn [place] [facility] [place] 250 DO Work Phone: [phone]\S\3Vyfpbj0-1AI-Ebxnn [place] [facility] 250 DO Work Phone: LrzdiaOpunqdSP-Wcrhb [place] [facility] 250 DO Work Phone: [phone] on above:PERFORMED BY:[facility] [place], [place] [phone] MEDICAL DIRECTORJAMAAL MO M.D.NormalNormalNormalMP-[facility] 250 DO Work Phone: [phone]\S\86.4Wrmqha67-749MZ-Whwck [place] [facility] 250 DO Work Phone: [phone]\S\30.7below low zwbjbcexh28.0-46.4MP-[facility] 250 DO Work Phone: [phone]\S\10.3below low gskthumjy26.8-15.4MP-[facility] 250 DO Work Phone: [phone]\S\3.56below low threshold3.60-5.00MP-[facility] 250 DO Work Phone: [phone]\S\8.6Tdomoa2.8-11.6MP-[facility] 250 DO Work Phone: [phone]\S\6.2Fwbgfo6.8-11.6MP-[facility]-[place] 250 DO Work Phone: Nucleated erythrocytes [Presence] in Blood by Automated countOrdered By: Jonna Perry on 18-95-7636Ysvoqwumq RBC Auto Ql (Bld)N/A [facility] HospitalOvalocyte detectionOrdered By: Jonna Perry on 89-67-0849Dwsewxuvhq LM Ql (Bld)SlightSelect Medical Trihealth Rehabilitation HospitalPlatelet adequacy [Presence] in Blood by Light microscopyOrdered By: Jonna Perry on 85-20-6856Prftlfago LM Ql (Bld)NormalNormCleveland Clinic [facility] General Platelet mean volume Auto (Bld) [Entitic vol]Ordered By: Jonna Perry on 03-08-2023 Platelet mean volume (Bld) [Entitic vol]9.0 fL6.3-10.7FUniversity Hospitals Health SystemPlatelet morphology finding [Identifier] in BloodOrdered By: Jonna Perry on 51-37-6287Xcxhhrtm morphology finding Nom (Bld)N/AFUniversity Hospitals Health SystemPlatelet poor plasma international normalized ratio (INR) by coagulation assay (relatOrdered By: Jonna Perry on 32-20-2774AJN Coag (PPP) [Relative time]1.1 {INR}[facility] HospitalComment on above:INR Therapeutic Range A) Pre- and Peroperative OAT started two weeks before surgery. NOT HIP SURGERY: 1.5 - 2.5 HIP SURGERY: 2 - 3B) Primary and secondary prevention of venous THROMBOSIS: 2 - 3C) Active venous thrombosis, pulmonary embolismand prevention of recurrent venous thrombosis: 2 - 3D) Prevention of arterial thromboembolismincluding patients with mechanical heart valves: 3 - 4.5Platelets Auto (Bld) [#/Vol]Ordered By: Jonna Perry on 36-91-8428Qyaokbjvf (Bld) [#/Vol]276 10*3/lO294-758UcjcicmqySelect Medical Trihealth Rehabilitation HospitalPlatelets Large [Presence] in Blood by Light microscopyOrdered By: Jonna Perry on 89-34-2087Njkvzilgj Large LM Ql (Bld)[facility] CenterPoikilocytosis [Presence] in Blood by Light microscopyOrdered By: Jonna Perry on 36-12-6256Llksyjsjaflqpz LM Ql (Bld)[facility] CenterPotassium [Moles/volume] in Serum or PlasmaOrdered By: Jonna Perry on 89-79-1664Kcdafrbgp [Moles/Vol]5.1 mmol/L 3.5-5.1FUniversity Hospitals Health SystemRBC Auto (Bld) [#/Vol]Ordered By: Jonna Perry on 58-93-4089NGT (Bld) [#/Vol]3.56 10*6/uL3.60-5.00[facility] HospitalRB morphologyOrdered By: Jonna Perry on 37-59-1107IYG morphology finding Nom (Bld)N/AFGenesis Hospitalegmented neutrophils/100 WBC Manual cnt (Bld)Ordered By: Jonna Perry on 50-63-4684Nsrmmowvd neutrophils/100 WBC (Bld)74 %50-70[facility] Generalerum or plasma anion gap determinationOrdered By: Jonna Perry on 64-79-7283Jqpno gap [Moles/Vol]9.0 mmol/L 6.0-15.0[facility] Generalerum or plasma high density lipoprotein (HDL) cholesterol measurementOrdered By: Jonna Perry on 03-08-2023 Cholesterol in HDL [Mass/Vol]38 mg/iM11-48RjbaiitzfSelect Medical Trihealth Rehabilitation Hospital Comment on above:HDL CHOL ATP-III CLASSIFICATION Cardiovascular RiskHDL > or equal to 60 mg/dL LOWHDL < 40 mg/dL HIGHSerum or plasma total cholesterol/high density lipoprotein (HDL) cholesterol mass ratOrdered By: Jonna Perry on 97-39-0685Nslqwdtfair.total/Cholesterol in HDL [Mass ratio]4.0 {ratio}<5.0 [facility] Generalodium [Moles/volume] in Serum or PlasmaOrdered By: Jonna Perry on 01-77-7303Wggddz [Moles/Vol]141 mmol/C698-683OuqyqjpspSelect Medical Trihealth Rehabilitation HospitalTriglyceride [Mass/volume] in Serum or PlasmaOrdered By: Jonna Perry on 22-19-2305Hjnqgsqxzxty [Mass/Vol]67 mg/dL0-149[facility] HospitalComment on above:TRIG ATP III CLASSIFICATIONTRIG less than 150 mg/dL NormalTRIG 150-199 mg/dL Borderline highTRIG 200-500 mg/dL High TRIG greater than 500 mg/dL Very highStandard traceable to the Center for Disease Co nrtrol and Prevention (CDC) test method.Urea nitrogen [Mass/volume] in Serum or PlasmaOrdered By: Jonna Perry on 41-99-5668Zjio nitrogen [Mass/Vol]21 mg/dL7-25 [facility] HospitalWBC Auto (Bld) [#/Vol]Ordered By: Jonna Perry on 61-45-6467JSI (Bld) [#/Vol]8.6 10*3/uL3.8-11.6FUniversity Hospitals Health System Office Visit (Cardiology)on 40-55-3209Ninhds-up visitDiagnoses/Problems Assessed Class 1 obesity with body mass [...] accelerated hypertension, [facility] [place], diuresed approximately 14 pounds with diuretics. She [...] myocardial infarction, revascularization, stroke, thromboembolic orbleeding disorder She is treated for hypertension She [...] negative for complaint. Vitals Vital Signs Recorded: [id number] 10:14AMRecorded: [id number] 10:04AM Wzfgywlz171, RUE, Yabiudw62 (more content not included)...NormalUH [facility]works Tobacco Screening.on 51-37-7128Jinfg depression screening assessmentNoNorth[facility] 250 DO Work Phone: Fall risk assessmenta) No falls within the last year [facility] 250 DO Work Phone: Tobacco use status CPHSb) [facility] [place] 250 DO Work Phone: CBC AUTO DIFFon 36-39-9163WOMG #0.0 103/ulNormal 0.0-0.1[facility] HospitalComment on above:Performed By: #### CBC #### [facility] [address] [place] [address] Dr. Jose David ShanksBasophils/100 WBC (Bld)0.5 %Normal0.2-2.0[facility] Comment on above:Performed By: #### CBC #### [facility] [address] [place] [address] Dr. Jose David Devries #0.1 103/ulNormal0.0-0.7The [facility]ruder HospitalComment on above: Performed By: #### CBC #### [facility] [address] [place] [address] Dr. Jose David Vickersosinophils/100 WBC (Bld)1.2 %Normal0.9-7.0[facility] Comment on above:Performed By: #### CBC #### [facility] [address] [place] [address] Dr. Jose David Vickersrythrocyte distribution width (RBC) [Ratio]13.2 %Icqikb16.0-15.0 [facility] HospitalComment on above:Performed By: #### CBC #### [facility] [address] [place] [address] Dr. Jose David ShanksHematocrit (Bld) [Volume fraction]33.9 %Critically low36.0-48.0 [facility] HospitalComment on above:Performed By: #### CBC #### [facility] [address] [place] [address] Dr. Jose David ShanksHemoglobin (Bld) [Mass/Vol]11.0 g/dLCritically low12.0-16.0[facility] HospitalComment on above:Performed By: #### CBC #### [facility] [address] [place] [address] Dr. Jose David Guerrero #0.03 10e3/ulNormal0.00-0.03The [facility]ruder HospitalComment on above:Performed By: #### CBC #### [facility] [address] [place] [address] Dr. Jose David Guerrero %0.5 %Normal0.0-0.5The [facility]ruder HospitalComment on above: Performed By: #### CBC #### [facility] [address] [place] [address] Dr. Jose David Rolon #0.8 103/ulCritically low1.2-3.8[facility] Comment on above:Performed By: #### CBC #### [facility] [address] [place] [address] Dr. Jose David Anthonyhocytes/100 WBC (Bld)13.7 %Critically low20.5-60.0The [facility] HospitalComment on above:Performed By: #### CBC #### [facility] [address] [place] [address] Dr. Jose David Donovan DIFF REQNONormalThe [facility] HospitalComment on above: Performed By: #### CBC #### [facility] [address] [place] [address] Dr. Jose David Andino (RBC) [Entitic mass]28.9 eyIusjlr39.7-34.0The [facility] HospitalComment on above:Performed By: #### CBC #### [facility] [address] [place] [address] Dr. Jose David Turner (RBC) [Mass/Vol]32.4 g/mVYgvxru89.9-35.2The [facility] HospitalComment on above:Performed By: #### CBC #### [facility] [address] [place] [address] Dr. Jose David Turner (RBC) [Entitic vol]89.0 sNJbnekb40.0-99.0The [facility] HospitalComment on above:Performed By: #### CBC #### [facility] [address] [place] [address] Dr. Jose David Horton #0.5 103/ulNormal0.3-0.8The [facility] HospitalComment on above:Performed By: #### CBC #### [facility] [address] [place] [address] Dr. Jose David Olivoocytes/100 WBC (Bld)8.2 %Normal1.7-12.0[facility] Comment on above:Performed By: #### CBC #### [facility] [address] [place] [address] Dr. Jose David Mix #4.3 103/ulNormal1.4-6.5The [facility] HospitalComment on above:Performed By: #### CBC #### [facility] [address] [place] [address] Dr. Jose David Herndonutrophils/100 WBC (Bld)75.9 %Critically high43.0-75.0The [facility] HospitalComment on above:Performed By: #### CBC #### [facility] [address] [place] [address] Dr. Jose David Gonzalez mean volume (Bld) [Entitic vol]10.1 fLNormal9.5-13.5The [facility] HospitalComment on above:Performed By: #### CBC #### [facility] [address] [place] [address] Dr. Jose David ShanksPLT279 103/ozFfwjkk261-728Azd [facility] HospitalComment on above: Performed By: #### CBC #### [facility] [address] [place] [address] Dr. Jose David BustosC3.81 106/ulCritically low4.20-5.40The [facility] HospitalComment on above:Performed By: #### CBC #### [facility] [address] [place] [address] Dr. Jose David ShanksWBC5.7 103/ulNormal4.0-11.0The [facility] HospitalComment on above: Performed By: #### CBC #### [facility] [address] [place] [address] Dr. Jose David Zhouon 49-43-1327Kmhvpoxu [Mass/Vol]180.0 ng/mLNormal 8.0-252.0The [facility] HospitalComment on above:Performed By: #### CBC #### [facility] [address] [place] [address] Dr. Jose David Helm AND TIBCon 03-01-2023% CFWBVCTOPO92.6 %NormalThe [facility] HospitalComment on above:Performed By: #### CBC #### [facility] [address] [address] [address] Jose David Helm [Mass/Vol]61.0 ug/bRJvuvyv65.0-170.0[facility] Comment on above:Performed By: #### CBC #### [facility] [address] [place] [address] Dr. Jose David ShanksTIBC LEJZTQ360.0 ug/fSRymlbd366.0-450.0[facility] Comment on above:Performed By: #### CBC #### [facility] [address] [place] [address] Dr. Jose David Villanueva STRESS/REST MULTIon 52-53-2305ZL STRESS/REST MULTIPatient: LASHAUN JOAQUIN Exam Date: 03/01/2023 : 1940 Gender:F Ordering : DR NATHAN HATHAWAY D.O. Admission #: [id number] Family : Order #: [id number] CLICK HERE TO VIEW EXAM RADIOLOGY REPORT [...] STUDY: PERFUSION DEFECT: LOCATION: Mid-anterior. Apical anterior. Peculiar. SIZE: Medium (3-4 segments). SEVERITY: Moderate. TYPE: [...] by: William Dominguez MD on 03/01/2023 at 14:54Corey HospitalPROF CHEM 8 (BAS METB)on 55-40-8101Pmjtb gap [Moles/Vol]8.8 mmol/LNormalSalem City HospitalComment on above:Performed By: #### LACT #### [facility] [address] [place] [address] Dr. Jose David ShanksCalcium [Mass/Vol]9.0 mg/dLNormal8.5-10.1[facility] Comment on above:Performed By: #### LACT #### [facility] [address] [place] [address] Dr. Jose David ShanksChloride [Moles/Vol]106 mmol/RIeovtu08-330EavSalem City Hospital Comment on above:Performed By: #### LACT #### [facility] [address] [place] [address] Dr. Jose David ShanksCO2 [Moles/Vol]31.0 mmol/ERktwgc46.0-32.0[facility] Comment on above:Performed By: #### LACT #### [facility] [address] [place] [address] Dr. Jose David ShanksCreatinine [Mass/Vol]1.18 mg/dLCritically high0.55-1.02[facility] HospitalComment on above:Performed By: #### LACT #### [facility] [address] [place] [address] Dr. Main ChangEGFR-AF WEPIFYIE93 mL/min/1.79v7Olpolgphxx low>=60The [facility] HospitalComment on above:Performed By: #### LACT #### [facility] [address] [address] [address] Jose David VickersGFR-NON AF VGBQQDMO76 mL/min/1.18s4Jkfaeeqcbj low>=60The [facility] HospitalComment on above:Performed By: #### LACT #### [facility] [address] [address] [address] Jose David ShanksGlucose [Mass/Vol]98 mg/uKBtdeme19-161Vtt [facility] Comment on above:Performed By: #### LACT #### [facility] [address] [place] [address] Dr. Jose David ShanksPotassium [Moles/Vol]4.8 mmol/LNormal3.5-5.1[facility] Comment on above:Performed By: #### LACT #### [facility] [address] [address] [address] Jose David ShanksSodium [Moles/Vol]141 mmol/GOvduyn789-978WjeSalem City Hospital Comment on above:Performed By: #### LACT #### [facility] [address] [place] [address] Dr. Jose David ShanksUrea nitrogen [Mass/Vol]16.0 mg/dLNormal7.0-18.0The [facility] HospitalComment on above:Performed By: #### LACT #### [facility] [address] [place] [address] Dr. Jose David Rubio nitrogen/Creatinine [Mass ratio]13.6 mg/mgNormalThe [facility] HospitalComment on above:Performed By: #### LACT #### [facility] [address] [address] [address] Jose David ShanksRETICULOCYTEon 12-35-9271YIOBO4.51 %Normal0.60-3.10The [facility] HospitalComment on above:Performed By: #### CBC #### [facility] [address] [place] [address] Dr. Jose David Mohan B12 AND FOLATEon 47-21-8489Xzwtbjmka (Vitamin B12) [Mass/Vol] 1406.0 pg/mLCritically znoq919.0-986.0The [facility] HospitalComment on above: Performed By: #### CBC #### [facility] [address] [place] [address] Dr. Jose David ShanksFOLATE19.00 ng/mLNormal8.60-58.90The [facility] HospitalComment on above:Performed By: #### CBC #### [facility] [address] [place] [address] Dr. Jose David AllenC AUTO DIFFon 41-00-6944NKWS #0.0 103/ulNormal0.0-0.1The [facility] HospitalComment on above:Performed By: #### CBC #### [facility] [address] [place] [address] Dr. Jose David ShanksBasophils/100 WBC (Bld)0.6 %Normal0.2-2.0[facility] Comment on above:Performed By: #### CBC #### [facility] [address] [place] [address] Dr. Jose David Devries #0.1 103/ulNormal0.0-0.7The [facility] HospitalComment on above: Performed By: #### CBC #### [facility] [address] [place] [address] Dr. Jose David Vickersosinophils/100 WBC (Bld)2.7 %Normal0.9-7.0[facility] Comment on above:Performed By: #### CBC #### [facility] [address] [place] [address] Dr. Jose David Vickersrythrocyte distribution width (RBC) [Ratio]13.5 %Sgyybk58.0-15.0 The [facility] HospitalComment on above:Performed By: #### CBC #### [facility] [address] [place] [address] Dr. Jose David ShanksHematocrit (Bld) [Volume fraction]30.0 %Critically low36.0-48.0 The [facility] HospitalComment on above:Performed By: #### CBC #### [facility] [address] [address] [address] Jose David ShanksHemoglobin (Bld) [Mass/Vol]10.0 g/dLCritically low12.0-16.0The [facility] HospitalComment on above:Performed By: #### CBC #### [facility] [address] [address] [address] Jose David Guerrero #0.02 10e3/ulNormal0.00-0.03The [facility] HospitalComment on above:Performed By: #### CBC #### [facility] [address] [address] [address] Jose David Guerrero %0.4 %Normal0.0-0.5The [facility] HospitalComment on above: Performed By: #### CBC #### [facility] [address] [place] [address] Dr. Jose David Rolon #0.9 103/ulCritically low1.2-3.8[facility] Comment on above:Performed By: #### CBC #### [facility] [address] [address] [address] Jose David Anthonyhocytes/100 WBC (Bld)19.3 %Critically low20.5-60.0The [facility] HospitalComment on above:Performed By: #### CBC #### [facility] [address] [address] [address] Jose David MazariegosUAL DIFF REQNONormalThe [facility] HospitalComment on above: Performed By: #### CBC #### [facility] [address] [address] [address] Jose David Turner (RBC) [Entitic mass]29.3 adNygper41.7-34.0The [facility] HospitalComment on above:Performed By: #### CBC #### [facility] [address] [address] [address] Jose David Turner (RBC) [Mass/Vol]33.3 g/eUGmrtle09.9-35.2The [facility] Centerment on above:Performed By: #### CBC #### [facility] [address] [address] [address] Jose David TurnerV (RBC) [Entitic vol]88.0 cXIdzyjh11.0-99.0The [facility] HospitalComment on above:Performed By: #### CBC #### [facility] [address] [address] [address] Jose David Horton #0.4 103/ulNormal0.3-0.8The [facility] HospitalComment on above:Performed By: #### CBC #### [facility] [address] [place] [address] Dr. Jose David Olivoocytes/100 WBC (Bld)8.3 %Normal1.7-12.0The [facility] on above:Performed By: #### CBC #### [facility] [address] [place] [address] Dr. Jose David Mix #3.3 103/ulNormal1.4-6.5The [facility] on above:Performed By: #### CBC #### [facility] [address] [place] [address] Dr. Jose David Herndonutrophils/100 WBC (Bld)68.7 %Pocmjz10.0-75.0The [facility] on above:Performed By: #### CBC #### [facility] [address] [place] [address] Dr. Jose David Carmichaellet mean volume (Bld) [Entitic vol]9.9 fLNormal9.5-13.5The [facility] Centerment on above:Performed By: #### CBC #### [facility] [address] [place] [address] Dr. Jose David ShanksPLT259 103/jdZumrbp186-913Lbd [facility] Centerment on above: Performed By: #### CBC #### [facility] [address] [place] [address] Dr. Jose David ShanksRBC3.41 106/ulCritically low4.20-5.40The [facility] HospitalComment on above:Performed By: #### CBC #### [facility] [address] [address] [address] Jose David ShanksWBC4.8 103/ulNormal4.0-11.0The [facility] HospitalComment on above: Performed By: #### CBC #### [facility] [address] [place] [address] Dr. Jose David ShanksPROF CHEM 8 (BAS METB)on 15-22-4706Aenvf gap [Moles/Vol]11.7 mmol/LNormalThe [facility] HospitalComment on above:Performed By: #### LACT #### [facility] [address] [place] [address] Dr. Jose David ShanksCalcium [Mass/Vol]8.6 mg/dLNormal8.5-10.1[facility] Comment on above:Performed By: #### LACT #### [facility] [address] [place] [address] Dr. Jose David ShanksChloride [Moles/Vol]107 mmol/KYxqcgl40-843Glr [facility] Comment on above:Performed By: #### LACT #### [facility] [address] [place] [address] Dr. Jose David ShanksCO2 [Moles/Vol]30.9 mmol/VJexnsf80.0-32.0[facility] Comment on above:Performed By: #### LACT #### [facility] [address] [place] [address] Dr. Jose David ShanksCreatinine [Mass/Vol]1.04 mg/dLCritically high0.55-1.02The [facility] HospitalComment on above:Performed By: #### LACT #### [facility] [address] [place] [address] Dr. Jose David VickersGFR-AF [place] IS[place]ER>60Normal>=60The [facility] HospitalComment on above:Performed By: #### LACT #### [facility] [address] [place] [address] Dr. Jose David VickersGFR-NON AF BGTWZDTB03 mL/min/1.69w7Itqadvlbyh low>=60The [facility] HospitalComment on above:Performed By: #### LACT #### [facility] [address] [address] [address] Jose David ShanksGlucose [Mass/Vol]97 mg/eUMhgein10-335Qzp [facility] Comment on above:Performed By: #### LACT #### [facility] [address] [address] [address] Jose David ShanksPotassium [Moles/Vol]3.6 mmol/LNormal3.5-5.1[facility] Comment on above:Performed By: #### LACT #### [facility] [address] [place] [address] Dr. Jose David ShanksSodium [Moles/Vol]146 mmol/LCritically nkns500-915Rhc [facility] HospitalComment on above:Performed By: #### LACT #### [facility] [address] [place] [address] Dr. Jose David ShanksUrea nitrogen [Mass/Vol]17.0 mg/dLNormal7.0-18.0The [facility] HospitalComment on above:Performed By: #### LACT #### [facility] [address] [place] [address] Dr. Jose David Rubio nitrogen/Creatinine [Mass ratio]16.3 mg/mgNormalThe [facility] HospitalComment on above:Performed By: #### LACT #### [facility] [address] [place] [address] Dr. Jose David ShanksXR CHEST 2 Von 17-33-1012BQ CHEST 2 VHISTORY: 95-vuzm-zqjifn referred for shortness of breath. COMPARISON: 02-08-2023. [...] Electronically authenticated by: EDWARD MENA Date: 2023-02-09 15:56Corey HospitalBNPon 57-39-9709Wrynovvjrpz peptide B (Bld) [Mass/Vol]1007.0 pg/mLNormal<=1,800.0[facility] HospitalComment on above:Performed By: #### BNP #### [facility] [address] [place] [address] Dr. Jose David Tian TALI 3-6on 83-53-5458LK [Catalytic activity/Vol]29 U/L Ojjrmc71-400RddSalem City HospitalComment on above:Performed By: #### CMREP #### [facility] [address] [place] [address] Dr. Jose David Jacinto.MB [Mass/Vol]0.90 ng/mLNormal<=3.60[facility] Comment on above:Performed By: #### CMREP #### [facility] [address] [place] [address] Dr. Jose David MaeTROP69.4 pg/mLCritically high4.0-51.3TCh[facility] Comment on above:Result Comment: CUT-OFF POINTS HAVE BEEN ESTABLISHED BASED ON THE FOURTH UNIVERSAL DEFINITIONS OF MYOCARDIAL INFARCTION. THE UPPER REFERENCE LIMIT (URL) OF TROPONIN, DEFINED THE 99TH PERCENTILE OF cTnI DISTRIBUTION IN A REFERENCE POPULATION, HAS BEEN CONFIRMED THE DECISION THRESHOLD FOR TN DIAGNOSIS.Performed By: #### CMREP #### [facility] [address] [place] [address] Dr. Jose David Jacinto [Catalytic activity/Vol]23 U/LCritically zql35-787Srf [facility] HospitalComment on above:Performed By: #### CMREP #### [facility] [address] [place] [address] Dr. Jose David Jacinto.MB [Mass/Vol]ng/mLNormal<=3.60The [facility] HospitalComment on above:Performed By: #### CMREP #### [facility] [address] [place] [address] Dr. Jose David JamesOP72.0 pg/mLCritically high4.0-51.3TCh[facility]ic[facility] Comment on above:Result Comment: CUT-OFF POINTS HAVE BEEN ESTABLISHED BASED ON THE FOURTH UNIVERSAL DEFINITIONS OF MYOCARDIAL INFARCTION. THE UPPER REFERENCE LIMIT (URL) OF TROPONIN, DEFINED THE 99TH PERCENTILE OF cTnI DISTRIBUTION IN A REFERENCE POPULATION, HAS BEEN CONFIRMED THE DECISION THRESHOLD FOR TN DIAGNOSIS.Performed By: #### CMREP #### [facility] [address] [place] [address] Dr. Jose David Tian TALI ADMITon [id number] [Catalytic activity/Vol]31 U/L Yqbsxo55-439Bzq [facility] HospitalComment on above:Performed By: #### NATALIIADM, BMP #### [facility] [address] [place] [address] Dr. Jose David Jacinto.MB [Mass/Vol]ng/mLNormal<=3.60The [facility] HospitalComment on above:Performed By: #### CMADM, BMP #### [facility] [address] [place] [address] Dr. Jose David JamesOP26.3 pg/mLNormal4.0-51.3The [facility] HospitalComment on above:Result Comment: CUT-OFF POINTS HAVE BEEN ESTABLISHED BASED ON THE FOURTH UNIVERSAL DEFINITIONS OF MYOCARDIAL INFARCTION. THE UPPER REFERENCE LIMIT (URL) OF TROPONIN, DEFINED THE 99TH PERCENTILE OF cTnI DISTRIBUTION IN A REFERENCE POPULATION, HAS BEEN CONFIRMED THE DECISION THRESHOLD FOR TN DIAGNOSIS.Performed By: #### CMADM, BMP #### [facility] [address] [place] [address] Dr. Jose David RenO52 ng/mLNormal9-82The [facility] HospitalComment on above: Performed By: #### CMADM, BMP #### [facility] [address] [place] [address] Dr. Jose David Viera AUTO DIFFon 93-11-1555OHNG #0.0 103/ulNormal0.0-0.1The [facility] HospitalComment on above:Performed By: #### LACT #### [facility] [address] [place] [address] Dr. Jose David ShanksBasophils/100 WBC (Bld)0.3 %Normal0.2-2.0The [facility] Comment on above:Performed By: #### LACT #### [facility] [address] [place] [address] Dr. Jose David Devries #0.1 103/ulNormal0.0-0.7The [facility] HospitalComment on above: Performed By: #### LACT #### [facility] [address] [place] [address] Dr. Jose David Vickersosinophils/100 WBC (Bld)0.5 %Critically low0.9-7.0The [facility] HospitalComment on above:Performed By: #### LACT #### [facility] [address] [place] [address] Dr. Jose David Vickersrythrocyte distribution width (RBC) [Ratio]13.4 %Cddxhs55.0-15.0 The [facility] HospitalComment on above:Performed By: #### LACT #### [facility] [address] [place] [address] Dr. Jose David ShanksHematocrit (Bld) [Volume fraction]33.0 %Critically low36.0-48.0 The [facility] HospitalComment on above:Performed By: #### LACT #### [facility] [address] [place] [address] Dr. Jose David ShanksHemoglobin (Bld) [Mass/Vol]11.1 g/dLCritically low12.0-16.0The [facility] HospitalComment on above:Performed By: #### LACT #### [facility] [address] [place] [address] Dr. Jose David Guerrero #0.06 10e3/ulCritically high0.00-0.03The [facility] Comment on above:Performed By: #### LACT #### [facility] [address] [place] [address] Dr. Jose David Guerrero %0.5 %Normal0.0-0.5The [facility] HospitalComment on above: Performed By: #### LACT #### [facility] [address] [address] [address] Jose David Rolon #0.8 103/ulCritically low1.2-3.8The [facility] Comment on above:Performed By: #### LACT #### [facility] [address] [place] [address] Dr. Jose David Allenmphocytes/100 WBC (Bld)7.0 %Critically low20.5-60.0The [facility] HospitalComment on above:Performed By: #### LACT #### [facility] [address] [place] [address] Dr. Jose David Donovan DIFF REQNONormalThe [facility] HospitalComment on above: Performed By: #### LACT #### [facility] [address] [place] [address] Dr. Jose David Turner (RBC) [Entitic mass]29.6 zkHnkmca68.7-34.0The [facility] HospitalComment on above:Performed By: #### LACT #### [facility] [address] [place] [address] Dr. Jose David Turner (RBC) [Mass/Vol]33.6 g/jMCnovir24.9-35.2The [facility] HospitalComment on above:Performed By: #### LACT #### [facility] [address] [place] [address] Dr. Jose David Turner (RBC) [Entitic vol]88.0 eMNfqqtk70.0-99.0The [facility] HospitalComment on above:Performed By: #### LACT #### [facility] [address] [place] [address] Dr. Jose David Horton #0.6 103/ulNormal0.3-0.8The [facility] HospitalComment on above:Performed By: #### LACT #### [facility] [address] [place] [address] Dr. Jose David Olivoocytes/100 WBC (Bld)5.4 %Normal1.7-12.0The [facility] Comment on above:Performed By: #### LACT #### [facility] [address] [address] [address] Jose David Mix #9.9 103/ulCritically high1.4-6.5The [facility] Comment on above:Performed By: #### LACT #### [facility] [address] [place] [address] Dr. Jose David Herndonutrophils/100 WBC (Bld)86.3 %Critically high43.0-75.0The [facility] HospitalComment on above:Performed By: #### LACT #### [facility] [address] [place] [address] Dr. Jose David ShanksPlatelet mean volume (Bld) [Entitic vol]10.1 fLNormal9.5-13.5The [facility] HospitalComment on above:Performed By: #### LACT #### [facility] [address] [place] [address] Dr. Jose David ShanksPLT333 103/iqBpuyjj572-734Gdu [facility] HospitalComment on above: Performed By: #### LACT #### [facility] [address] [place] [address] Dr. Jose David ShanksRBC3.75 106/ulCritically low4.20-5.40The [facility] HospitalComment on above:Performed By: #### LACT #### [facility] [address] [place] [address] Dr. Jose David ShanksWBC11.5 103/ulCritically high4.0-11.0The [facility] HospitalComment on above:Performed By: #### LACT #### [facility] [address] [place] [address] Dr. Jose David Scott BLOODon 94-00-8997Msbfajweyfo examination of blood, cultureCulture Observations: NO GROWTH AT 5 DAYS.NormalThe [facility] HospitalComment on above:Performed By: #### LACT #### [facility] [address] [place] [address] Dr. Jose David ShanksMicroscopic examination of blood, cultureCulture Observations: NO GROWTH AT 5 DAYS.NormalThe [facility] HospitalComment on above:Performed By: #### LACT #### [facility] [address] [address] [address] Jose David PinoCARDIO M/2D COMPLETEon 65-72-2956OAAABOLIUB M/2D COMPLETE Patient: LASHAUN JOAQUIN Exam Date: 02/08/2023 : 1940 Gender:F Ordering : DR ALLI SCOTT . Admission #: [id number] Family : DR NATHAN HATHAWAY D.O. Order #: [id number] CLICK HERE TO VIEW EXAM ECHOCARDIOGRAM REPORT [...] by: Jaquan Payne M.D. on 02/09/2023 at 19:11[facility] 81-31-2770Osxkmnr [Moles/Vol]1.4 mmol/LNormal 0.4-2.0The [facility] HospitalComment on above:Performed By: #### LACT #### [facility] [address] [address] [address] Jose David ShanksLactate [Moles/Vol]1.4 mmol/LNormal0.4-2.0The [facility] Comment on above:Performed By: #### LACT #### [facility] [address] [address] [address] Jose David ShanksPROF CHEM 8 (BAS METB)on 60-14-5596Qdqxl gap [Moles/Vol]11.9 mmol/LNormalThe [facility] HospitalComment on above:Performed By: #### CMADM, BMP #### [facility] [address] [place] [address] Dr. Jose David ShanksCalcium [Mass/Vol]9.0 mg/dLNormal8.5-10.1The [facility] Comment on above:Performed By: #### CMADM, BMP #### [facility] [address] [address] [address] Jose David ShanksChloride [Moles/Vol]105 mmol/FSivzxb77-118BqjSal[facility] Hospital Comment on above:Performed By: #### CMADM, BMP #### [facility] [address] [address] [address] Jose David ShanksCO2 [Moles/Vol]28.2 mmol/HWzxmno81.0-32.0The [facility] Comment on above:Performed By: #### CMADM, BMP #### [facility] [address] [place] [address] Dr. Jose David ShanksCreatinine [Mass/Vol]0.99 mg/dLNormal0.55-1.02The [facility] HospitalComment on above:Performed By: #### CMADM, BMP #### [facility] [address] [address] [address] Jose David VickersGFR-AF [place]>60Normal>=60The [facility] HospitalComment on above:Performed By: #### CMADM, BMP #### [facility] [address] [address] Dr. Jose David VickersGFR-NON AF [id number] mL/min/1.97k4Ujsstyygje low>=60The Magruder HospitalComment on above:Performed By: #### CMADM, BMP #### [facility] [address] [address] [address] Jose David ShanksGlucose [Mass/Vol]123 mg/dLCritically mbxt68-171Ldd Mag[facility] HospitalComment on above:Performed By: #### CMADM, BMP #### [facility] [address] [address] [address] Jose David ShanksPotassium [Moles/Vol]4.1 mmol/LNormal3.5-5.1[facility] Comment on above:Performed By: #### CMADM, BMP #### [facility] [address] [address] [address] Jose David ShanksSodium [Moles/Vol]141 mmol/TWtvljh254-840Sto [facility] Comment on above:Performed By: #### CMADM, BMP #### [facility] [address] [address] [address] Jose David ShaknsUrea nitrogen [Mass/Vol]14.0 mg/dLNormal7.0-18.0The Magruder HospitalComment on above:Performed By: #### CMADM, BMP #### [facility] [address] [address] [address] Jose David Rubio nitrogen/Creatinine [Mass ratio]14.1 mg/mgNormalThe Magruder HospitalComment on above:Performed By: #### CMADM, BMP #### [facility] [address] [place] [address] Dr. Jose David ShanksRESPIRATORY PANEL PLUSon [id number] detectedNormal NOT DETECTEDThe Magruder HospitalComment on above:Performed By: #### RSPLUS #### [facility] [address] [place] [address] Dr. Yilan ChangB. ParapertusisNot detectedNormalNOT DETECTEDThe Magruder HospitalComment on above:Performed By: #### RSPLUS #### [facility] [address] [address] [address] Jose David Mccoy. PertussisNot detectedNormalNOT DETECTEDThe [facility] Comment on above:Performed By: #### RSPLUS #### [facility] [address] [address] [address] Jose David ShanksChlamydia PneumoniaeNot detectedNormalNOT DETECTEDThe [facility]uder HospitalComment on above:Performed By: #### RSPLUS #### [facility] [address] [address] [address] Jose David ShanksCoronavirus 229ENot detectedNormalNOT DETECTEDThe [facility] HospitalComment on above:Performed By: #### RSPLUS #### [facility] [address] [place] [address] Dr. Jose David ShanksCoronavirus FEA9Bhv detectedNormalNOT DETECTEDThe [facility] HospitalComment on above:Performed By: #### RSPLUS #### [facility] [address] [address] [address] Jose David Sesayronavirus UE06Imo detectedNormalNOT DETECTEDThe [facility] HospitalComment on above:Performed By: #### RSPLUS #### [facility] [address] [address] [address] Jose David ShanksCoronavirus WH87Ymm detectedNormalNOT DETECTEDThe [facility] HospitalComment on above:Performed By: #### RSPLUS #### [facility] [address] [address] [address] Jose David Rangel A H1Not detectedNormalNOT DETECTEDThe [facility] Comment on above:Performed By: #### RSPLUS #### [facility] [address] [address] [address] Jose David Rangel A H1 2009Not detectedNormalNOT DETECTEDThe [facility] HospitalComment on above:Performed By: #### RSPLUS #### [facility] [address] [address] [address] Jose David Rangel A H3Not detectedNormalNOT DETECTEDThe [facility] Comment on above:Performed By: #### RSPLUS #### [facility] [address] [address] [address] Jose David Rangel BNot detectedNormalNOT DETECTEDThe [facility] Comment on above:Performed By: #### RSPLUS #### [facility] [address] [address] [address] Jose David AbdullahineumovirusNot detectedNormalNOT DETECTEDThe [facility] HospitalComment on above:Performed By: #### RSPLUS #### [facility] [address] [address] [address] Jose David Ha. PneumoniaeNot detectedNormalNOT DETECTEDThe [facility] HospitalComment on above:Performed By: #### RSPLUS #### [facility] [address] [address] [address] Jose David Del Toro 1Not detectedNormalNOT DETECTEDThe [facility] HospitalComment on above:Performed By: #### RSPLUS #### [facility] [address] [address] [address] Jose David Del Toro 2Not detectedNormalNOT DETECTEDThe [facility] HospitalCommackin[facility] on above:Performed By: #### RSPLUS #### [facility] [address] [address] [address] Jose David Del Toro 3Not detectedNormalNOT DETECTEDThe [facility] HospitalComment on above:Performed By: #### RSPLUS #### [facility] [address] [address] [address] Jose David Del Toro 4Not detectedNormalNOT DETECTEDThe [facility] HospitalCommackinac [facility] on above:Performed By: #### RSPLUS #### [facility] [address] [address] [address] Jose David ShanksRhino/EnterovirusNot detectedNormalNOT DETECTEDThe [facility] HospitalCommackinac [facility] hospital on above:Performed By: #### RSPLUS #### [facility] [address] [address] [address] Jose David Ruff Header 1RESPIRATORY PANEL: [facility]ESCore[facility] Comment on above:Performed By: #### RSPLUS #### [facility] [address] [place] [address] Dr. Jose David Ruff Header 2RESPIRATORY PANEL: BACTERIANoKettering Health – Soin Medical CenterComment on above:Performed By: #### RSPLUS #### [facility] [address] [address] [address] Jose David GusmanVNot detectedNormalNOT DETECTEDThe [facility] HospitalComment on above:Performed By: #### RSPLUS #### [facility] [address] [place] [address] Dr. Jose David Gonzalez-CoV-2 (COVID-19) RNA ZABRINA+probe Ql (Unsp spec)Not detected NormalNOT DETECTEDThe Magruder HospitalComment on above:Performed By: #### RSPLUS #### [facility] [address] [place] [address] Dr. Jose David ShanksXR CHEST 1 Von [id number] CHEST 1 VEXAM: XR CHEST 1 V HISTORY: SHORTNESS OF [...] Electronically authenticated by: Petra SAHU Date: 2023-02-08 05:21[facility] SCARLETT CADon [id number] MAMM SCREEN 3D SCARLETT CAD Patient: LASHAUN JOAQUIN Exam Date: 01/08/2023 : 1940 Gender:F Ordering : DR NATHAN HATHAWAY D.OManuel Admission #: [id number] Family : Order #: [id number] CLICK HERE TO VIEW EXAM RADIOLOGY REPORT [...] lung cancer at age 62. LOCATION: [facility] BREAST COMPOSITION: Extremely dense, which lowers [...] by: William Dominguez MD on 01/08/2023 at 11:24[facility] ST HEAD_NECKon [id number] HEAD_NECKEXAM: [facility] HEAD_NECK HISTORY: Localized enlarged lymph nodes COMPARISON: 01/11/2021 [...] Electronically authenticated by: WILLIAM DOMINGUEZ Date: 2022-09-11 17:07[facility] Abdomen and Pelvis W contrast Rivka [id number]: 1. Stable CT of the abdomen and [...] any questions regarding this interpretation, please call [phone]. If you are unable to reach us at the number above, please feel free to contact [facility] at [phone].DIVISION OF RADIOLOGY* * *Final Report* * * DATE OF EXAM: Aug 28 2022 1:36PM [facility] 0530 - CT ABD/PEL W IVCON / [...] chest CT performed will be reported separately. Industrial Waste Treatment Technician (topogram) images: No additional findings. DIVISION OF RADIOLOGYProvider, [facility] [place] - 08/28/2022 * * *Final Report* * * DATE OF EXAM: Aug 28 2022 1:36PM [facility] 0530 - CT ABD/PEL W IVCON / [...] chest CT performed will be reported separately. Industrial Waste Treatment Technician (topogram) images: No additional findings. IMPRESSION IMPRESSION: [...] any questions regarding this interpretation, please call [phone]. If you are unable to reach us at the number above, please feel free to contact [facility]Radiology at [phone]. [facility] Abdomen and Pelvis W contrast IVOrdered By: [facility] Provider on [id number] ClinicCT Chest W contrast Rivka [id number]: 1. Interval resolution of previously described right [...] any questions regarding this interpretation, please call [phone]. If you are unable to reach us at the number above, please feel free to contact [facility]iology at [phone].DIVISION OF RADIOLOGY* * *Final Report* * * DATE OF EXAM: Aug 28 2022 1:36PM [facility] 0539 - CT CHEST W IVCON / [...] was performed concurrently and is reported separately. Industrial Waste Treatment Technician (topogram) images: No additional findings. DIVISION OF RADIOLOGYProvider, [facility] [place] - 08/28/2022 * * *Final Report* * * DATE OF EXAM: Aug 28 2022 1:36PM [facility] [employer] [facility] 0539 - CT CHEST W IVCON / [...] was performed concurrently and is reported separately. Industrial Waste Treatment Technician (topogram) images: No additional findings. IMPRESSION IMPRESSION: [...] Date/Time: Aug 28 2022 5:08P Dictated by: KISEHA REYNOSO MD This examination was interpreted and the report reviewed and electronically signed by: KIESHA REYNOSO MD on Aug 28 2022 5:19PM EST Thank you for allowing us to participate in the care of your patient. Should there be any questions regarding this interpretation, please call [phone]. If you are unable to reach us at the number above, please feel free to contact [facility]iology at [phone]. [facility] HospitalNo Panel Informationon [id number] Study observation (narrative)[facility] HospitalCovid-19 PCR (CVDTBH)on 05-04-2022 SARS-CoV-2 (COVID-19) RNA ZABRINA+probe Ql (Unsp spec)DetectedCritically abnormalNOT DETECTEDThe [facility] HospitalComment on above:Result Comment: This test is not yet approved or cleared by the [place] FDA. When there are no FDA-approved or cleared tests available, and other criteria are met, FDA can make tests available under an emergency access mechanism called an Emergency Use Authorization (EUA). The EUA for this test is supported by the Nuclear Reactor Technician of Health and Human Service's (HHS's) declaration [...] which the test may no longer be used).Performed By: #### CVDTBH #### [facility] [address] [place] [address] Dr. Jose David Shanks Vital Signs Date TimeVital SignValuePerforming NbecqromgTwihxblh95-86-2960 10:44-0400Body utpaip807.02 cmBenjamin Ball DO Work Phone: [phone])[address] [place], [place] 7494410-07-2025 10:44-0400 Body mass index (BMI) [Ratio]34.5 kg/t5Shykesea Ball DO Work Phone: 1419)[address] [place], [place] 7494410-07-2025 10:44-0400 Body sotdglsirwi85.6 [degF]Nathan Ball DO Work Phone: 1(419)[address] [place], [place] 7494410-07-2025 10:44-0400 Body .45 kgBenjamin Ball DO Work Phone: 1(419)[address] [place], [place] 7494410-07-2025 10:44-0400 Diastolic blood azzqjhkq86 mm[Hg]Nathan Ball DO Work Phone: 1419)[address] [place], [place] [address]494410-07-2025 10:44-0400 Heart rate69 /minBenjamin Ball DO Work Phone: [phone])[address] [place], [place] 749[address]10-07-2025 10:44-0400 SaO2% (BldA) [Mass fraction]96 %Nathan Ball DO Work Phone: 1(419)[address] [place], [place] 7494410-07-2025 10:44-0400 Systolic blood ceelbhsv842 mm[Hg]Nathan Ball DO Work Phone: 1(419)[address] [place], [place] 7494409-23-2025 15:53-0400 Body ejvmyp499.37 cmBenjamin Ball DO Work Phone: [phone])[address] [place], [place] 7494409-23-2025 15:53-0400 Body mass index (BMI) [Ratio]31.9 kg/l2Ogwhvehq Ball DO Work Phone: 1(419)[address] [place], [place] 7494409-23-2025 15:53-0400 Body jttpaz54.45 kgBenjamin Ball DO Work Phone: 1419)[address] [place], [place] 7494409-23-2025 15:53-0400 Diastolic blood mxpyxttu92 mm[Hg]Nathan Ball DO Work Phone: [facility]09-23-2025 15:53-0400 Diastolic blood yzrespzl48 mm[Hg]Nathan Ball DO Work Phone: [facility]09-23-2025 15:53-0400 Heart rate76 /minBenjamin Ball DO Work Phone: [facility]09-23-2025 15:53-0400 Respiratory rate12 /minBenjamin Ball DO Work Phone: [facility]09-23-2025 15:53-0400 Systolic blood lqbglyrt513 mm[Hg]Ntahan Ball DO Work Phone: [facility]09-23-2025 15:53-0400 Systolic blood sbbevpgn061 mm[Hg]Nathan Ball DO Work Phone: [facility]09-10-2025 10:09-0400 Diastolic blood craouyle22 mm[Hg]Paolo Casillas APRN.HOME MANAGEMENT SUPERVISOR Work Phone: [facility] HospitalComment on above:recheck BP [facility] 07-08-2025 10:09-0400Systolic blood uhnpntmg815 mm[Hg]Paolo Casillas APRN.HOME MANAGEMENT SUPERVISOR Work Phone: [facility] HospitalComment on above:recheck BP [facility] 07-08-2025 10:01-0400Body .4 cmPaolo Casillas APRN.HOME MANAGEMENT SUPERVISOR Work Phone: [facility]09-10-2025 10:01-0400Body mass index (BMI) [Ratio]33.15 kg/b4FkzlfPaolo Casillas APRN.HOME MANAGEMENT SUPERVISOR Work Phone: [facility]09-10-2025 10:01-0400Body temperature 96.8 [degF]Paolo Casillas APRN.HOME MANAGEMENT SUPERVISOR Work Phone: [facility]09-10-2025 10:01-0400Body zvtgdu66.8 kgPaolo Casillas APRN.HOME MANAGEMENT SUPERVISOR Work Phone: [facility]09-10-2025 10:01-0400Heart rate66 /min Paolo Casillas 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.HOME MANAGEMENT SUPERVISOR Work Phone: [facility]09-10-2025 10:01-0400Respiratory rate 18 /minPaolo Casillas 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.HOME MANAGEMENT SUPERVISOR Work Phone: [facility]09-10-2025 10:01-2639VtW2% (BldA) [Mass fraction]95 %Paolo Casillas 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.HOME MANAGEMENT SUPERVISOR Work Phone: [facility]08-22-2025 09:31-0400Body cnihoq254.37 cmBenjamin Ball DO Work Phone: [facility]08-22-2025 09:31-0400 Body mass index (BMI) [Ratio]32.4 kg/b0Xtxpxtkn Ball DO Work Phone: [phone]08-22-2025 09:31-0400 Body vvdwny01.81 kgBenjamin Ball DO Work Phone: [phone]08-22-2025 09:31-0400 Diastolic blood lywkeoom01 mm[Hg]Nathan Ball DO Work Phone: [phone]08-22-2025 09:31-0400 Heart rate62 /minBenjamin Ball DO Work Phone: [phone]08-22-2025 09:31-0400 Respiratory rate14 /minBenjamin Ball DO Work Phone: 1(435)122-[address] [place], [place] 2803308-22-2025 09:31-0400 SaO2% (BldA) [Mass fraction]96 %Nathan Ball DO Work Phone: [phone]08-22-2025 09:31-0400 Systolic blood cxlcvurb927 mm[Hg]Nathan Ball DO Work Phone: [phone]07-22-2025 15:33-0400 Body lxbcji999.37 cmBenjamin Ball DO Work Phone: 1(419)[address] [place], [place] 7494407-22-2025 15:33-0400 Body mass index (BMI) [Ratio]31.8 kg/z8Ecfdwyif Ball DO Work Phone: 1419)[address] [place], [place] 7494407-22-2025 15:33-0400 Body igcert38.13 kgBenjamin Ball DO Work Phone: 1419)[address] [place], [place] 7494407-22-2025 15:33-0400 Diastolic blood saqfxafe01 mm[Hg]Nathan Ball DO Work Phone: 1419)[address] [place], [place] 7494407-22-2025 15:33-0400 Heart rate67 /minBenjamin Ball DO Work Phone: 1419)[address] [place], [place] 7494407-22-2025 15:33-0400 Respiratory rate14 /minBenjamin Ball DO Work Phone: 1419)[address] [place], [place] 7494407-22-2025 15:33-0400 SaO2% (BldA) [Mass fraction]96 %Nathan Ball DO Work Phone: 1419)[address] [place], [place] 7494407-22-2025 15:33-0400 Systolic blood ekczycef080 mm[Hg]Nathan Ball DO Work Phone: 1(124)[address] [place], [place] 7494405-22-2025 11:22-0400 Body lkzuer164.37 cmBenjamin Ball DO Work Phone: 1(728)[address] [place], [place] 7494405-22-2025 11:22-0400 Body mass index (BMI) [Ratio]31.6 kg/p8Sgqaybih Ball DO Work Phone: 1419)[address] [place], [place] 7494405-22-2025 11:22-0400 Body jzmcga59.54 kgBenjamin Ball DO Work Phone: 1419)[address] [place], [place] 7494405-22-2025 11:22-0400 Diastolic blood ixuliyup63 mm[Hg]Nathan Ball DO Work Phone: 1(379)[address] [place], [place] 7494405-22-2025 11:22-0400 Heart rate66 /minBenjamin Ball DO Work Phone: [facility]05-22-2025 11:22-0400 Respiratory rate12 /minBenjamin Ball DO Work Phone: [facility]05-22-2025 11:22-0400 SaO2% (BldA) [Mass fraction]97 %Nathan Ball DO Work Phone: [facility]05-22-2025 11:22-0400 Systolic blood fqyqxakq131 mm[Hg]Nathan Ball DO Work Phone: [facility]05-20-2025 10:42-0400 Body .[address]05-20-2025 10:42-0400 Body mass index (BMI) [Ratio]33.28 kg/m[address] 03-17-2025 10:42-0400Body yuqdlh27.[address] 03-17-2025 10:42-0400Diastolic blood khkvefem72 mm[Hg][address]05-20-2025 10:42-0400Systolic blood essrlmex895 mm[Hg][address]05-16-2025 13:25-0400Body rneqgw406.37 cm Nathan Ball DO Work Phone: [facility]05-16-2025 13:25-0400 Body mass index (BMI) [Ratio]33 kg/t5Sxgygpot Ball DO Work Phone: [facility]05-16-2025 13:25-0400 Body .28 kgBenjamin Ball DO Work Phone: [facility]05-16-2025 13:25-0400 Diastolic blood mm[Hg]Nathan Ball DO Work Phone: [facility]05-16-2025 13:25-0400 Heart rate90 /minBenjamin Ball DO Work Phone: [facility]05-16-2025 13:25-0400 Respiratory rate12 /minBenjamin Ball DO Work Phone: [phone]05-16-2025 13:25-0400 Systolic blood ecrbnqyw397 mm[Hg]Nathan Ball DO Work Phone: 1(002)849-[address] [place], [place] 2803304-30-2025 08:46-0400 Body .1 cmReyna Esparza MD Work Phone: 1(240)[address] [place], [place] [address] HospitalEaerxckhku96-72-6842 08:46-0400Body mass index (BMI) [Ratio]32.45 kg/q5IqapyaReyna Esparza MD Work Phone: 1(901)[facility] HospitalCjqgsclbbt84-65-1178 08:46-0400Body puoyhh51.45 kgReyna Esparza MD Work Phone: 1(392)[facility] HospitalJkrovujpzw56-44-4869 08:46-0400Diastolic blood kfkofhfj19 mm[Hg]Reyna Esparza MD Work Phone: 1(367)[facility] HospitalBarn[facility] HospitalVnvtddadqt86-57-9245 08:46-0400Heart rate72 /min Reyna Esparza MD Work Phone: 1(149)[facility] HospitalJffqubjxty91-74-4322 08:46-0400Systolic blood wrcjcnal710 mm[Hg]Reyna Esparza MD Work Phone: 1(517)[facility]-5245[facility] HospitalHjevscyqqj95-13-8630 10:20-0400Diastolic blood vqrifhmd17 mm[Hg]Nathan Ball DO Work Phone: [phone]04-17-2025 10:20-0400 Heart rate56 /minBenjamin Ball DO Work Phone: [phone]04-17-2025 10:20-0400 Respiratory rate18 /minBenjamin Ball DO Work Phone: [phone]04-17-2025 10:20-0400 SaO2% (BldA) [Mass fraction]97 %Nathan Ball DO Work Phone: 1(620)787-[address] [place], [place] 2803304-17-2025 10:20-0400 Systolic blood ikxoganv970 mm[Hg]Nathan Ball DO Work Phone: 1419)[address] [place], [place] 7494404-17-2025 06:29-0400 Body .1 cmBenjamin Ball DO Work Phone: 1419)[address] [place], [place] 7494404-17-2025 06:29-0400 Body ukfpwgmftgo99.3 [degF]Nathan Ball DO Work Phone: 1419)[address] [place], [place] 7494404-17-2025 06:29-0400 Body txxfao83.9 kgBenjamin Ball DO Work Phone: 1419)[address] [place], [place] 7494403-27-2025 10:20-0400 Body .37 cmBenjamin Ball DO Work Phone: 1419)[address] [place], [place] 7494403-27-2025 10:20-0400 Body mass index (BMI) [Ratio]31.9 kg/i1Hllkzmif Ball DO Work Phone: 1419)[address] [place], [place] 7494403-27-2025 10:20-0400 Body spledy38.45 kgBenjamin Ball DO Work Phone: 1(447)[address] [place], [place] 7494403-27-2025 10:20-0400 Diastolic blood sjejcoqy30 mm[Hg]Nathan Ball DO Work Phone: 1(616)[address] [place], [place] 7494403-27-2025 10:20-0400 Heart rate65 /minBenjamin Ball DO Work Phone: 1(406)[address] [place], [place] 7494403-27-2025 10:20-0400 Respiratory rate12 /minBenjamin Ball DO Work Phone: 1419)[address] [place], [place] 7494403-27-2025 10:20-0400 Systolic blood xngjnqpi384 mm[Hg]Nathan Ball DO Work Phone: 1(141)[address] [place], [place] 7494403-17-2025 11:10-0400 Body qhyixo610.1 cmHolden Rosado 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-HOME MANAGEMENT SUPERVISOR Work Phone: [facility]03-17-2025 11:10-0400 Body mass index (BMI) [Ratio]33.28 kg/n6QbuvbHolden Rosado 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-HOME MANAGEMENT SUPERVISOR Work Phone: [facility]03-17-2025 11:10-0400 Body xjkacm21.72 kgHolden Rosado 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-HOME MANAGEMENT SUPERVISOR Work Phone: [facility]03-17-2025 11:10-0400 Diastolic blood ndyqexel64 mm[Hg]Holden Rosado 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-HOME MANAGEMENT SUPERVISOR Work Phone: [facility]03-17-2025 11:10-0400 Heart rate60 /Jasbir Rosado 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-HOME MANAGEMENT SUPERVISOR Work Phone: [facility]03-17-2025 11:10-0400 Systolic blood deyiuveh473 mm[Hg]Holden Rosado 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-HOME MANAGEMENT SUPERVISOR Work Phone: [facility]02-18-2025 10:50-0500 Body vtauth533.37 cmBenjamin Ball DO Work Phone: [phone]02-18-2025 10:50-0500 Body mass index (BMI) [Ratio]32 kg/d7Ohwnimck Ball DO Work Phone: 1(335)139-[address] [place], [place] 2803302-18-2025 10:50-0500 Body .59 kgBenjamin Ball DO Work Phone: [phone]02-18-2025 10:50-0500 Diastolic blood jcjsujom74 mm[Hg]Nathan Ball DO Work Phone: 1(831)953-[address] [place], [place] 2803302-18-2025 10:50-0500 Heart rate56 /minBenjamin Ball DO Work Phone: [phone]02-18-2025 10:50-0500 SaO2% (BldA) [Mass fraction]97 %Nathan Ball DO Work Phone: [phone]02-18-2025 10:50-0500 Systolic blood mm[Hg]Nathan Ball DO Work Phone: 1(419)[address] [place], [place] 7494401-28-2025 13:55-0500 Body .1 cmReyna Esparza MD Work Phone: 1(505)[address] [place], [place] 9915901-28-2025 13:55-0500Body mass index (BMI) [Ratio]32.28 kg/g6PvhsogReyna Esparza MD Work Phone: 1(699)[address] [place], [place] 9915901-28-2025 13:55-0500Body qtloet44 kg Reyna Esparza MD Work Phone: 1(874)[address] [place], [place] 9915901-28-2025 13:55-0500Diastolic blood lyruygqu55 mm[Hg]Reyna Esparza MD Work Phone: 1(242)[address] [place], [place] 9915901-28-2025 13:55-0500Heart rate60 /min Reyna Esparza MD Work Phone: 1(502)[address] [place], [place] 9915901-28-2025 13:55-0500Systolic blood gcercbjp614 mm[Hg]Reyna Esparza MD Work Phone: 1(392)[address] [place], [place] 9915901-20-2025 13:05-0500Diastolic blood bncoubmw26 mm[Hg]Nathan Ball DO Work Phone: 1(774)[address] [place], [place] 7494401-20-2025 13:05-0500 Heart rate68 /minBenjamin Ball DO Work Phone: 1(970)[address] [place], [place] 7494401-20-2025 13:05-0500 Respiratory rate16 /minBenjamin Ball DO Work Phone: 1(921)[address] [place], [place] 7494401-20-2025 13:05-0500 SaO2% (BldA) [Mass fraction]94 %Nathan Ball DO Work Phone: 1(339)[address] [place], [place] 7494401-20-2025 13:05-0500 Systolic blood oadurflc780 mm[Hg]Nathan Ball DO Work Phone: 1(767)[address] [place], [place] 7494401-20-2025 10:05-0500 Body tuaxuj123.37 cmBenjamin Ball DO Work Phone: 1(499)[address] [place], [place] 7494401-20-2025 10:05-0500 Body dkihym32.35 kgBenjaairam Hathaway DO Work Phone: [facility]12-11-2024 10:40-0500 Body .1 cmEdinson Perry DO Work Phone: [facility]12-11-2024 10:40-0500 Body mass index (BMI) [Ratio]33.12 kg/p7NqarrcsEdinson Perry DO Work Phone: [facility]12-11-2024 10:40-0500 Body snboah29.27 kgEdinson Perry DO Work Phone: [address] [place], [place] [address]12-11-2024 10:40-0500 Diastolic blood fvaikptg03 mm[Hg]Edinson Perry DO Work Phone: [facility]12-11-2024 10:40-0500 Heart rate78 /Frieda Perry DO Work Phone: [facility]12-11-2024 10:40-0500 Systolic blood koycmywe554 mm[Hg]Edinson Perry DO Work Phone: [facility]11-14-2024 10:19-0500 Body zuupxj701.1 [facility]11-14-2024 10:19-0500Body mass index (BMI) [Ratio]32.3 kg/w4HgvohkroaSelect Medical [facility]health [facility] Hospital11-14-2024 10:19-0500Body nlcofh64.13 kg[facility]11-14-2024 10:19-0500Diastolic blood gtgqbavn23 mm[Hg][facility] 09-11-2024 10:19-0500Heart rate63 /minSelect [facility] 09-11-2024 10:19-7039JgR8% (BldA) [Mass fraction]97 %[facility]11-14-2024 10:19-0500Systolic blood mm[Hg][facility]08-06-2024 10:54-0400Body jpucnz322.1 cmDO Nathan Ball Work Phone: [facility]08-06-2024 10:54-0400 Body mass index (BMI) [Ratio]26.8 kg/m2DO Nathan Ball Work Phone: [facility]08-06-2024 10:54-0400 Body agdtdw37.02 kgDO Nathan Ball Work Phone: [phone]08-06-2024 10:54-0400 Diastolic blood pspxfzus98 mm[Hg]DO Nathan Ball Work Phone: [phone]08-06-2024 10:54-0400 Heart rate56 /minDO Nathan Ball Work Phone: [phone]08-06-2024 10:54-0400 Respiratory rate12 /minDO Nathan Ball Work Phone: [phone]08-06-2024 10:54-0400 Systolic blood mfnyibjo345 mm[Hg]DO Nathan Ball Work Phone: [phone]06-24-2024 10:21-0400 Body mass index (BMI) [Ratio]32.98 kg/t9MhanpHolden Rosado 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-HOME MANAGEMENT SUPERVISOR Work Phone: [facility]06-24-2024 10:21-0400 Body .9 kgHolden Rosado 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-HOME MANAGEMENT SUPERVISOR Work Phone: [phone]06-24-2024 10:21-0400 Diastolic blood nnpekttq99 mm[Hg]Holden Rosado 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-HOME MANAGEMENT SUPERVISOR Work Phone: [facility]06-24-2024 10:21-0400 Heart rate60 /Jasbir Rosado 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-HOME MANAGEMENT SUPERVISOR Work Phone: [phone]06-24-2024 10:21-0400 Systolic blood nwvvkoxo983 mm[Hg]Holden Rosado 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-HOME MANAGEMENT SUPERVISOR Work Phone: [phone]05-15-2024 09:27-0400 Diastolic blood ufbiyxbp35 mm[Hg]Laura [address] [place] [address] 03-12-2024 09:27-0400Heart rate62 /minEly [address] [place] [address] 03-12-2024 09:27-0400Systolic blood xsykqwoi946 mm[Hg]Laura [address] [place], [place] 6305105-08-2024 11:46-0400Body entuww832.1 cmHolden Rosado 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-HOME MANAGEMENT SUPERVISOR Work Phone: [phone] [place], [place] 6108405-08-2024 11:46-0400 Body mass index (BMI) [Ratio]32.62 kg/o7TvbbiHolden Rosado 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-HOME MANAGEMENT SUPERVISOR Work Phone: [phone]05-08-2024 11:46-0400 Body mapxwc55.91 kgHolden Rosado 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-HOME MANAGEMENT SUPERVISOR Work Phone: [phone] [place], [place] 6108405-08-2024 11:46-0400 Diastolic blood kypvggyi20 mm[Hg]Holden Rosado 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-HOME MANAGEMENT SUPERVISOR Work Phone: [phone] [place], [place] 6108405-08-2024 11:46-0400 Heart rate62 /Jasbir Rosado 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-HOME MANAGEMENT SUPERVISOR Work Phone: [phone] [place], [place] 6108405-08-2024 11:46-0400 Systolic blood etgkcdlj986 mm[Hg]Holden Rosado 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-HOME MANAGEMENT SUPERVISOR Work Phone: [phone] [place], [place] 6108405-01-2024 09:53-0400 Body fyzgal972.1 cmDO Nathan Ball Work Phone: [facility]05-01-2024 09:53-0400 Body mass index (BMI) [Ratio]31.9 kg/m2DO Nathan Ball Work Phone: [facility]05-01-2024 09:53-0400 Body deadcf97.08 kgDO Nathan Ball Work Phone: [facility]05-01-2024 09:53-0400 Diastolic blood reepczzt59 mm[Hg]DO Nathan Ball Work Phone: [facility]05-01-2024 09:53-0400 Heart rate62 /minDO Nathan Ball Work Phone: [facility]05-01-2024 09:53-0400 SaO2% (BldA) [Mass fraction]97 %DO Nathan [employer] Work Phone: [facility]05-01-2024 09:53-0400 Systolic blood cglvhtyx468 mm[Hg]DO Nathan [employer] Work Phone: [facility]04-17-2024 10:30-0400 Body .1 cm[facility]04-17-2024 10:30-0400Body mass index (BMI) [Ratio]32.8 kg/b3QrbwbkyhaSelect Medical [facility]health [facility]04-17-2024 10:30-0400Body hgueex87.35 kg[facility]04-17-2024 10:30-0400Diastolic blood umzvtouy48 mm[Hg][facility] 02-13-2024 10:30-0400Heart rate56 /[facility] 02-13-2024 10:30-0010QzJ6% (BldA) [Mass fraction]98 %[facility]04-17-2024 10:30-0400Systolic blood heikjzhl011 mm[Hg][facility]04-05-2024 11:01-0400Body nsvkam259.1 cm[facility]04-05-2024 11:01-0400Body mass index (BMI) [Ratio]27.3 kg/b2IoblbnkovSelect Medical Trihealth Rehabilitation Hospital04-05-2024 11:01-0400Body ovsvpg83.44 kg[facility]04-05-2024 11:01-0400Diastolic blood zqtcbabl33 mm[Hg] [facility]04-05-2024 11:01-0400Heart rate49 /[facility]04-05-2024 11:01-0400Respiratory rate12 /[facility]04-05-2024 11:01-0400Systolic blood tiqqzpqb784 mm[Hg] [facility]01-05-2024 11:00-0500Body bwnjvy757.1 cm Nathan Ball Other [employer] Other 01-05-2024 11:00-0500Body mass index (BMI) [Ratio] 31.78 kg/s0Hfkuolzh Ball Other [employer] Other 01-05-2024 11:00-0500Body .64 kgBenjamin Ball Other [employer] Other 01-05-2024 11:00-0500Diastolic blood xaewvxdo09 mm[Hg] Nathan Ball Other [employer] Other 01-05-2024 11:00-0500Respiratory rate16 /minBenjamin Ball Other [employer] Other 01-05-2024 11:00-0500Systolic blood hsmuwmgk048 mm[Hg] Nathan Ball Other [employer] Other 12-05-2023 09:45-0500Body lyhwgr441.1 cmBenjamin Ball Other [employer] Other 12-05-2023 09:45-0500Body mass index (BMI) [Ratio] 31.61 kg/d4Xbqxiyzw Ball Other [employer] Other 12-05-2023 09:45-0500Body .18 kgBenjamin Ball Other [employer] Other 12-05-2023 09:45-0500Diastolic blood yqxacwwt99 mm[Hg] Nathan Ball Other [employer] Other 12-05-2023 09:45-0500Respiratory rate12 /minBenjamin Ball Other [employer] Other 12-05-2023 09:45-0500Systolic blood qvedixxt870 mm[Hg] Nathan Ball Other [employer] Other 08-11-2023 11:15-0400Body pcecws122.1 cmBenjamin Ball Other [employer] Other 08-11-2023 11:15-0400Body mass index (BMI) [Ratio] 32.95 kg/k3Zfafizjg Ball Other [employer] Other 08-11-2023 11:15-0400Body bpanzs65.81 kgBenjamin Ball Other [employer] Other 08-11-2023 11:15-0400Diastolic blood gpoxjall06 mm[Hg] Nathan Ball Other [employer] Other 08-11-2023 11:15-0400Respiratory rate12 /minBenjamin Ball Other [employer] Other 08-11-2023 11:15-0400Systolic blood lhrjwzdi762 mm[Hg] Nathan Ball Other [employer] Other 08-07-2023 13:51-0400Body ksschqvrekv58.7 [degF]Luis Mckenzie MD Work Phone: [facility]08-07-2023 13:51-0400Body awtren16.99 kgLuis Mckenzie MD Work Phone: [facility]08-07-2023 13:51-0400Diastolic blood smdyudjo25 mm[Hg]Luis Mckenzie MD Work Phone: [facility]08-07-2023 13:51-0400Heart rate56 /min Luis Mckenzie MD Work Phone: [facility]08-07-2023 13:51-0400Respiratory rate 18 /minLuis Mckenzie MD Work Phone: [facility]08-07-2023 13:51-7158KbV7% (BldA) [Mass fraction]98 %Luis Mckenzie MD Work Phone: [facility]08-07-2023 13:51-0400Systolic blood fwygrphd623 mm[Hg]Luis Mckenzie MD Work Phone: [facility]07-28-2023 11:15-0400Body vuzvog636.1 cmBenjamin Ball Other [employer] Other 07-28-2023 11:15-0400Body mass index (BMI) [Ratio] 32.86 kg/u3Dflnpboe Ball Other [employer] Other 07-28-2023 11:15-0400Body cuzfch82.59 kgBenjamin Ball Other [employer] Other 07-28-2023 11:15-0400Diastolic blood eywufyqp68 mm[Hg] Nathan Ball Other [employer] Other 07-28-2023 11:15-0400Respiratory rate16 /minBenjamin Ball Other [employer] Other 07-28-2023 11:15-0400Systolic blood lujasifa033 mm[Hg] Nathan Ball Other [employer] Other 07-21-2023 15:30-0400Body igwwnyyptvq56.7 [degF]DO Nathan Ball Work Phone: [phone]07-21-2023 15:30-0400 Diastolic blood bzuhxajo12 mm[Hg]DO Nathan Ball Work Phone: [phone]07-21-2023 15:30-0400 Heart rate62 /minDO Nathan Ball Work Phone: [phone]07-21-2023 15:30-0400 Respiratory rate16 /minDO Nathan Ball Work Phone: [phone]07-21-2023 15:30-0400 SaO2% (BldA) [Mass fraction]95 %DO Nathan Ball Work Phone: [phone]07-21-2023 15:30-0400 Systolic blood vqsfwekp730 mm[Hg]DO Nathan Ball Work Phone: [phone]07-21-2023 05:39-0400 Body oniknr48.1 kgDO Nathan [employer] Work Phone: [phone]07-20-2023 20:00-0400 Inhaled oxygen flow rate1.5 L/BrittneyO Nathan Ball Work Phone: [phone]07-20-2023 15:54-0400 Body vpnlsa020.72 cmDO Nathan Ball Work Phone: [phone]07-19-2023 11:30-0400 Body swvajp670.1 cmBenjaairam Ball Other [facility] [employer] Other 07-19-2023 11:30-0400Body mass index (BMI) [Ratio] 33.28 kg/f4Lmdmsdsu Ball Other [place] [employer] Other 07-19-2023 11:30-0400Body .72 kgBenjamin Ball Other [place] [employer] Other 07-19-2023 11:30-0400Diastolic blood betchrml61 mm[Hg] Nathan Ball Other [employer] Other 07-19-2023 11:30-0400Respiratory rate16 /minBenjamin Ball Other [employer] Other 07-19-2023 11:30-0400Systolic blood voqdhuzb699 mm[Hg] Nathan Ball Other [employer] Other 07-12-2023 11:15-0400Body eapkbg301.1 cmBenjamin Ball Other [employer] Other 07-12-2023 11:15-0400Body mass index (BMI) [Ratio] 32.75 kg/r6Rpbflnly Ball Other [employer] Other 07-12-2023 11:15-0400Body aoxvdg98.27 kgBenjamin Ball Other [employer] Other 07-12-2023 11:15-0400Diastolic blood vyvdwtwn11 mm[Hg] Nathan Ball Other [employer] Other 07-12-2023 11:15-0400Respiratory rate16 /minBenjamin Ball Other [employer] Other 07-12-2023 11:15-0070AlG6% (BldA) [Mass fraction]98 % Nathan Ball Other [employer] Other 07-12-2023 11:15-0400Systolic blood osuvvkcj291 mm[Hg] Nathan Ball Other [employer] Other 06-29-2023 11:30-0400Body tsoliv713.1 cmBenjamin Ball Other [employer] Other 06-29-2023 11:30-0400Body mass index (BMI) [Ratio] 32.53 kg/i2Ytgjmlky Ball Other [employer] Other 06-29-2023 11:30-0400Body hzbyqq53.68 kgBenjamin Ball Other [employer] Other 06-29-2023 11:30-0400Diastolic blood zqlpvkap88 mm[Hg] Nathan Ball Other [employer] Other 06-29-2023 11:30-0400Respiratory rate16 /minBenjamin Ball Other [employer] Other 06-29-2023 11:30-0400Systolic blood btmkyhnu782 mm[Hg] Nathan Ball Other [employer] Other 06-21-2023 09:45-0400Body rbvmhi733.1 cmBenjamin Ball Other [employer] Other 06-21-2023 09:45-0400Body mass index (BMI) [Ratio] 33.28 kg/k6Btpsrjvg Ball Other [employer] Other 06-21-2023 09:45-0400Body kteqxq84.72 kgBenjamin Ball Other [employer] Other 06-21-2023 09:45-0400Diastolic blood expekacn67 mm[Hg] Nathan Ball Other [employer] Other 06-21-2023 09:45-0400Respiratory rate20 /minBenjamin Ball Other [employer] Other 06-21-2023 09:45-6329OhG3% (BldA) [Mass fraction]98 % Nathan Ball Other [employer] Other 06-21-2023 09:45-0400Systolic blood jcxtyxym622 mm[Hg] Nathan Ball Other [employer] Other 05-18-2023 10:45-0400Body .1 cmBenjamin Ball Other [employer] Other 05-18-2023 10:45-0400Body mass index (BMI) [Ratio] 31.95 kg/w5Ukbjflvf Ball Other [employer] Other 05-18-2023 10:45-0400Body .09 kgBenjamin Ball Other [employer] Other 05-18-2023 10:45-0400Diastolic blood zjobtgak05 mm[Hg] Nathan Ball Other [employer] Other 05-18-2023 10:45-0400Respiratory rate16 /minBenjamin Ball Other [employer] Other 05-18-2023 10:45-0400Systolic blood pyehzwgq027 mm[Hg] Nathan Ball Other [employer] Other 05-12-2023 17:00-0400Body relxbqhopqp81.9 [degF]DO Nathan Ball Work Phone: [facility]05-12-2023 17:00-0400 Diastolic blood bsxghitf53 mm[Hg]DO Nathan Ball Work Phone: [phone]05-12-2023 17:00-0400 Heart rate54 /minDO Nathan Ball Work Phone: [phone]05-12-2023 17:00-0400 Respiratory rate16 /minDO Nathan Ball Work Phone: [phone] [place], [place] [address]305-12-2023 17:00-0400 SaO2% (BldA) [Mass fraction]96 %DO Nathan Ball Work Phone: [phone]05-12-2023 17:00-0400 Systolic blood yxaojeri939 mm[Hg]DO Nathan Ball Work Phone: [phone]90[facility]05-12-2023 08:11-0400 Body qbwwoa727.1 cmDO Nathan Ball Work Phone: [phone]05-12-2023 08:11-0400 Body inkmbr49 kgDO Nathan Ball Work Phone: [phone]88[facility]05-10-2023 10:14-0400 Diastolic blood ohmyuhwg98 mm[Hg]Nathan E Ball Work Phone: 1([phone]) 433-7231286-7522HQ-[employer] [place] [address] 250 DO Work Phone: 1(850) 540-913605-10-2023 10:14-0400Systolic blood neskinbb569 mm[Hg] Nathan E Ball Work Phone: 1([phone]) 280-2508485-2906UM-Txyra [place] [facility] 250 DO Work Phone: 1(790) 893-112305-10-2023 10:04-0400Body lrvtuw839.1 cmBenjamin E Ball Work Phone: [phone]-Hacgv [place] [employer] 250 DO Work Phone: [phone] 10:04-0400Body mass index (BMI) [Ratio] 33.95 kg/k6Lvrvygfa E Ball Work Phone: 1([phone]-Jqiew [place] [address] DO Work Phone: 1(848) 565-875705-10-2023 10:04-0400Body surface area Derived from formula1.99 q0Rdbenotg E Ball Work Phone: [phone]-Krznx [place] [facility] 250 DO Work Phone: 1(383) 634-769105-10-2023 10:04-0400Body hbbpug47.53 kgBenjamin E Ball Work Phone: 1(301) 612-1450237-0757CA-Mgeoz [place] [employer] [address] DO Work Phone: 1(172) 676-815705-10-2023 10:04-0400Diastolic blood cssalwfj36 mm[Hg] Nathan E Ball Work Phone: [phone]-Eaqws [place] [address] DO Work Phone: 1(564) 238-586905-10-2023 10:04-0400Heart rate45 /minBenjamin E Ball Work Phone: 1([phone]) [phone]-[place]jvwpCynthia [place] [address] DO Work Phone: 1(681) 738-665105-10-2023 10:04-0400Systolic blood rpjojyzh489 mm[Hg] Nathan E Ball Work Phone: 1(668) [phone]-Uuqnn [place] [address] DO Work Phone: 1(416) 993-592204-19-2023 11:15-0400Body vyxunj679.1 cmBenjamin Ball Other [facility] [employer] Other 04-19-2023 11:15-0400Body mass index (BMI) [Ratio] 32.61 kg/a4Uiblzaga Ball Other [employer] Other 04-19-2023 11:15-0400Body fzotgl32.91 kgBenjamin Ball Other [employer] Other 04-19-2023 11:15-0400Diastolic blood kabcujlu72 mm[Hg] Nathan Ball Other [employer] Other 04-19-2023 11:15-0400Respiratory rate12 /minBenjamin Ball Other [employer] Other 04-19-2023 11:15-0400Systolic blood racgguwy874 mm[Hg] Nathan Ball Other [employer] Other 04-07-2023 12:15-0400Body .1 cmBenjamin Ball Other [employer] Other 04-07-2023 12:15-0400Body mass index (BMI) [Ratio] 32.78 kg/t1Mywyevrp Ball Other [employer] Other 04-07-2023 12:15-0400Body raqtga60.36 kgBenjamin Ball Other [employer] Other 04-07-2023 12:15-0400Diastolic blood vwaqfdic29 mm[Hg] Nathan Ball Other [employer] Other 04-07-2023 12:15-0400Respiratory rate12 /minBenjamin Ball Other [employer] Other 04-07-2023 12:15-0400Systolic blood ggrjpunq844 mm[Hg] Nathan Ball Other [employer] Other 02-16-2023 10:00-0500Body lsrakj693.1 cmBenjamin Ball Other [employer] Other 02-16-2023 10:00-0500Body mass index (BMI) [Ratio] 32.53 kg/c8Desldcxe Ball Other [facility] [employer] Other 02-16-2023 10:00-0500Body .68 kgBenalberta Hathaway Other [employer] Other 02-16-2023 10:00-0500Diastolic blood yxyswdyd18 mm[Hg] Nathan Hathaway Other [place] [employer] Other 02-16-2023 10:00-0500Respiratory rate12 /minNathan Hathaway Other [facility] [employer] Other 02-16-2023 10:00-0500Systolic blood yggnefjp473 mm[Hg] Nathan Hathaway Other [facility] [employer] Other 02-06-2023 13:25-0500Body .4 cmLuis Mckenzie MD Work Phone: [facility]02-06-2023 13:25-0500Body temperature 97.11 [degF]Luis Mckenzie MD Work Phone: [facility]02-06-2023 13:25-0500Body nqodbo17.36 kgLuis Mckenzie MD Work Phone: [facility]02-06-2023 13:25-0500Diastolic blood unibhlef63 mm[Hg]Luis Mckenzie MD Work Phone: [facility]02-06-2023 13:25-0500Heart rate63 /min Luis Mckenzie MD Work Phone: [facility]02-06-2023 13:25-0500Respiratory rate 16 /minLuis Mckenzie MD Work Phone: [facility]02-06-2023 13:25-5704ByL0% (BldA) [Mass fraction]96 %Luis Mckenzie MD Work Phone: [facility]02-06-2023 13:25-0500Systolic blood qvswjeur741 mm[Hg]Luis Mckenzie MD Work Phone: [facility]01-17-2023 15:00-0500Body zobezd638.1 cmBenjamin Ball Other [place] [employer] Other 01-17-2023 15:00-0500Body mass index (BMI) [Ratio] 32.53 kg/e9Sjndylot Ball Other [place] [employer] Other 01-17-2023 15:00-0500Body opwnra73.68 kgBenjamin Ball Other [place] [employer] Other 01-17-2023 15:00-0500Diastolic blood buqcugsm56 mm[Hg] Nathan Ball Other [place] [employer] Other 01-17-2023 15:00-0500Respiratory rate12 /minBenjamin Ball Other [facility] [employer] Other 01-17-2023 15:00-0500Systolic blood mm[Hg] Nathan Ball Other [place] [employer] Other 08-01-2022 10:06-0400Body otksal991.4 Collin Mckenzie MD Work Phone: [facility]08-01-2022 10:06-0400Body temperature 97.59 [degF]Luis Mckenzie MD Work Phone: [facility]08-01-2022 10:06-0400Body cziiaq11.72 kgLuis Mckenzie MD Work Phone: [facility]08-01-2022 10:06-0400Diastolic blood byvpnerb72 mm[Hg]Luis Mckenzie MD Work Phone: [facility]08-01-2022 10:06-0400Heart rate50 /min Luis Mckenzie MD Work Phone: [facility]08-01-2022 10:06-0400Respiratory rate 16 /minLuis Mckenzie MD Work Phone: [facility]08-01-2022 10:06-8697BgA3% (BldA) [Mass fraction]96 %Luis Mckenzie MD Work Phone: [facility]08-01-2022 10:06-0400Systolic blood mm[Hg]Luis Mckenzie MD Work Phone: [facility] Encounters Encounter DateEncounter TypeCare ProviderFacilityStart: 08-04-2025 End: 15-30-2577rhyvttynddWpkvtmwc Ball DO Work Phone: [facility] Work Phone: Start: 08-04-2025 End: 52-96-4861Fxmpaji encounter procedureKaia Krishna [facility] Work Phone: Start: 07-21-2025 End: 55-87-2409pjuziwemvyUawltorw Ball DO Work Phone: [facility] Work Phone: Start: 07-21-2025 End: 74-85-2975Ryrjxfg encounter procedureBeron Hathaway DO-[facility] Work Phone: Start: 35-80-5205Vuf-patient / Non-visitValentin Leonard MD-[facility] Work Phone: Start: 07-15-2025 End: 72-71-0035qtrsyrqtawONBGHPVE E BALLFacility:[facility] HospitalStart: 07-10-2025 End: 28-47-7687Dbohbfhds encounterValentin Leonard MD Work Phone: Cancer Appts MCComment on above:Orders; Patient Update Start: 07-08-2025 End: 65-62-6815Sdgneoyqt encounterPaolo Casillas APRN.HOME MANAGEMENT SUPERVISOR Work Phone: Cancer Appts MCComment on above:ResultsStart: 07-08-2025 End: 08-84-3318Layvqqs encounter procedurePaolo Casillas APRN.HOME MANAGEMENT SUPERVISOR Work Phone: Hematology/OncologyStart: 52-13-1932Vxz-patient / Non-visitJaimee Ethan 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 TRUCK SAFETY INSPECTOR-C-[facility] Work Phone: Start: 07-08-2025 End: 19-57-6990qlnlupzpcbCasogVaibhav Casillas APRN.HOME MANAGEMENT SUPERVISOR Work Phone: Hematology/OncologyComment on above:Abnormal SPEP (Primary Dx); Primary hypertension; Hyperlipidemia, unspecified hyperlipidemia type; Heart disease; Edema, unspecified type; Monoclonal gammopathy of undetermined significance; Anemia in other chronic diseases classified elsewhereStart: 07-06-2025 End: 53-01-5069Rgqtefzgo encounterPaolo Casillas APRN.HOME MANAGEMENT SUPERVISOR Work Phone: Hematology/OncologyComment on above:Lab Orders (nt) Start: 19-48-6861Upk-patient / Non-visitBenjamin Fransico DO-[facility] Work Phone: Start: 72-46-0394Owh-patient / Non-visitBenjamin Ball DO-[facility] Work Phone: Start: 06-19-2025 End: 78-10-2424mxjnbwercyQdjzfqco Ball DO Work Phone: [facility] Work Phone: Start: 06-19-2025 End: 06-28-2578Hbgdmde encounter procedureBenjamin Ball DO-[facility] Work Phone: Start: 05-19-2025 End: 77-53-5877rpimxnyihkPdvkswhu Ball DO Work Phone: [facility] Work Phone: Start: 05-19-2025 End: 11-13-6234Qfufqrr encounter procedureBenalberta Hathaway DO-[facility] Work Phone: Start: 03-19-2025 End: 05-02-5513ryxarejnkiDrqnyrcw Ball DO Work Phone: [facility] Work Phone: Start: 03-19-2025 End: 04-63-6153Gijupmr encounter procedureBenalberta Hathaway DO Work Phone: [facility] Work Phone: Start: 49-31-9225Olp-patient / Non-visitBenalberta Hathaway DO Work Phone: [facility] Work Phone: Start: 03-17-2025 End: 10-38-9347Ynopunyysz hospital visit by Derrick Blair Echo[facility] 2[facility]Comment [facility]:Essential hypertension; PalpitationsStart: 03-17-2025 End: 52-51-9643vrsqydotfqXKVWY [facility] Start: 03-13-2025 End: 23-43-3377Tsysmjf encounter procedureBeron Hathaway DO Work Phone: [facility] Work Phone: Start: 02-25-2025 End: 43-20-2044Isorzc flowsheetReyna Esparza MD Work Phone: [facility] ENTStart: 02-25-2025 End: 85-90-5364Tgunqx flowsheetReyna Esparza MD Work Phone: [facility] ENTStart: 02-25-2025 End: 89-02-5636Bgwpzb outpatient visit 15 minutesReyna Esparza MD Work Phone: noMS CI ENTComment on above:Nontoxic multinodular goiter (CMS/HCC) (Primary Dx)Start: 02-25-2025 End: 93-33-9676xtsdwmpjdeJSLWZQ H TIMMISNot AvailableStart: 02-12-2025 End: 70-98-1024Muwdmvnht department patient visitBeron HathawayFacility:[facility] Generaltart: 02-10-2025 End: 70-95-1049Buvjkfiks Result EncounterReyna Esparza MD Work Phone: noms External Department UnsolicitedStart: 02-10-2025 End: 61-59-0105Blxeenttc Result EncounterHirosa Esparza MD Work Phone: noms External Department UnsolicitedStart: 01-26-2025 End: 92-31-7657fqphtlzdycTUAZC [facility] AmbulatoryStart: 64-18-1452Atq-patient / Non-visitBenjuanmin Ball DO Work Phone: [facility] Work Phone: Start: 01-22-2025 End: 04-63-2849dkubfittruTtaygdso Ball DO Work Phone: [facility] Work Phone: Start: 01-22-2025 End: 79-17-8017Nmsdqtm encounter procedureBenjuanmin Ball DO Work Phone: [facility] Phys[facility] Group-[facility] Work Phone: Start: 01-12-2025 End: 32-78-3800Qiqzrx outpatient visit 25 Lesia Rosado APRNCORRIGAN M[facility] Work Phone: [facility] NorthComment on above:BMI 33.0-33.9,adult (Primary Dx); Essential hypertension; Palpitations; ASHD (arteriosclerotic heart disease); Mixed hyperlipidemiaStart: 01-12-2025 End: 37-04-7009nokvpobijbKHRZL [facility] AmbulatoryStart: 12-29-2024 End: 31-63-8684ouossvgrkfZmgsobpn Ball DO Work Phone: [facility] Work Phone: Start: 12-29-2024 End: 43-69-1046Wsuhfvq encounter procedureBenjamin Ball DO Work Phone: [facility] Work Phone: Start: 78-38-4059Vni-patient / Non-visitBenjamin Ball DO Work Phone: [facility] Work Phone: Start: 12-16-2024 End: 81-78-0109Wfjetsm encounter procedureBenjamin Ball DO Work Phone: [facility] Work Phone: Start: 11-25-2024 End: 94-41-3325Tvrnyv flowsheetHirosa Esparza MD Work Phone: noms CI ENTStart: 11-25-2024 End: 35-50-6080Hpeogx flowsheetReyna Esparza MD Work Phone: noms CI ENTStart: 11-25-2024 End: 52-08-3425Aygvht outpatient new 45 minutesReyna Esparza MD Work Phone: noms CI ENTComment on above:Thyroid nodule (CMS/HCC) (Primary Dx)Start: 11-25-2024 End: 99-07-7822lycphjtomgVDYTDI H TIMMISNot AvailableStart: 59-37-1237gojzefmfhw Nathan Ball DO Work Phone: [facility] Work Phone: Start: 69-38-5541Dfe-patient / Non-visitBenjamin Ball DO Work Phone: [facility] Physician [facility] Professional [facility] Work Phone: Start: 11-17-2024 End: 54-35-7155Xvcnbgoki to same day surgery centerBenjamin Ball DO Work Phone: [facility]-Ultrasound Main [place] Work Phone: Start: 11-17-2024 End: 28-60-6912hwiuqshvicJosymbqv Ball DO Work Phone: [facility] Work Phone: Start: 10-09-2024 End: 21-39-2235KfddilQlwascw [facility] COT Work Phone: NOIN OPHTStart: 10-08-2024 End: 46-27-6558Lvmjcr outpatient visit 25 [facility]jignesh Bledsoe Sunman DO Work Phone: uh [facility] on above:ASHD (arteriosclerotic heart disease); Essential hypertension; BMI 33.0-33.9,adult; Former smoker; S/P PTCA (percutaneous transluminal coronary angioplasty); Mixed hyperlipidemia; Coronary arteriosclerosis after percutaneous transluminal coronary angioplasty (PTCA)Start: 10-08-2024 End: 34-63-1773urofupcnynJBMVDWVEvergreen Medical Center AmbulatoryStart: 02-99-7254Svq-patient / Non-visitBenjamin Ball DO Work Phone: [facility] Work Phone: Start: 09-11-2024 End: 93-67-8571vxkxcarapzQqevdhlgcMemorial Health System Work Phone: Start: 09-11-2024 End: 25-85-6272Qjziqrn encounter procedureC[facility] Work Phone: Start: 94-43-4144Ywz-patient / Non-visitC[facility] Health [facility] Work Phone: Start: 07-16-2024 End: 10-01-9836tjehcnkjeqTycnwiosfChildren's Hospital of [facility] Work Phone: Start: 07-16-2024 End: 25-05-0937Jpycjpi encounter procedureC[facility] Work Phone: Start: 06-03-2024 End: 76-51-1220sgxlrjrcfuAD Nathan Hathaway Work Phone: [facility] Work Phone: Start: 06-03-2024 End: 14-88-0114Xnipofw encounter procedureDO Nathan Hathaway Work Phone: [facility] Work Phone: Start: 10-16-5379Mok-patient / Non-visitDO Nathan Hathaway Work Phone: [facility] Work Phone: Start: 72-70-6132Xtm-patient / Non-visitDO Nathan Hathaway Work Phone: [facility] Work Phone: Start: 04-28-2024 End: 62-62-4907tanjipunfyBLDGKEDM D ZAHLERNot AvailableStart: 04-21-2024 End: 68-32-0409Rvmymr outpatient visit [facility] hospitalHolden Rosado 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-[facility] Work Phone: [facility]Comm[facility]in[facility] on above:Essential hypertension (Primary Dx); ASHD (arteriosclerotic heart disease); Mixed hyperlipidemia; BMI 32.0-32.9,adultStart: 04-21-2024 End: 29-49-7305ilztyqcmxuQABWK K [facility] AmbulatoryStart: 03-12-2024 End: 05-89-5469Iroiicztcn hospital visit by physicianLaura Huang250a Al 1[facility] CenterComment on above:ASHD (arteriosclerotic heart disease)Start: 03-05-2024 End: 11-89-3356Dwqhhlw encounter procedureDO Nathan Hathaway Work Phone: [facility]-Lab Main [place] Work Phone: Start: 03-05-2024 End: 43-05-4953vbrqjyvjhjLW Nathan Wananchi Group Work Phone: [facility] Work Phone: Start: 03-05-2024 End: 00-90-6210Rhdhkl outpatient visit 25 minutesSeshu Rosado 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-[facility] Work Phone: uh [facility] on above:ASHD (arteriosclerotic heart disease) (Primary Dx); Essential hypertension; Mixed hyperlipidemia; BMI 32.0-32.9,adultStart: 02-27-2024 End: 50-28-1632Bdnhokg encounter procedureDO Nathan Wananchi Group Work Phone: [facility] Work Phone: start: 57-06-9062Zem-patient / Non-visitDO Nathan Wananchi Group Work Phone: [facility] Work Phone: Start: 71-52-7579Ydx-patient / Non-visitDO Nathan Wananchi Group Work Phone: [facility] Work Phone: Start: 95-50-4448Pbc-patient / Non-visitDO Nathan Wananchi Group Work Phone: [facility] Work Phone: Start: 32-28-5974Aro-patient / Non-visitDO Nathan Wananchi Group Work Phone: [facility] Work Phone: Start: 02-13-2024 End: 32-04-7852xwvdkdcwgaKvlwnspxeChildren's Hospital of [facility] Work Phone: Start: 02-13-2024 End: 44-06-1445Cxqoynk encounter procedureC[facility] GroupWilson [facility] Work Phone: Start: 21-29-1312Cts-patient / Non-visitC[facility] Health [facility] Work Phone: Start: 02-01-2024 End: 94-54-9480madyhqfidaYncedlauwChildren's Hospital of [facility] Work Phone: Start: 02-01-2024 End: 75-39-5342Fvpvdvl encounter procedureC[facility] Health [facility] Work Phone: Start: 01-04-2024 End: 71-84-8046xcfwpzcnctJsmbslie Ball Other [facility] Other Start: 03-31-4567Euwqxtfgf encounterBenjamin BallFPG [facility] ClinicStart: 88-08-1813Feo-patient / Non-visitC[facility] Health [facility] Physician Group-[place] [employer] Work Phone: Start: 11-27-2023 End: 29-81-4584iukcmulnsfZixmxuzm Ball Other no[facility] Other Start: 40-53-6863Maistlnjc encounterBenjamin BallFPG [facility] ClinicStart: 11-02-2023 End: 97-82-7793hzqmvuwuuoWfdujsmq Ball Other [facility] Other Start: 53-51-1219Nxlusa outpatient visit 25 minutes Nathan BallFPG [facility] ClinicStart: 10-02-2023 End: 33-55-7725vdapnbvyrhJehpjgth Ball Other no[facility] Other Start: 98-24-2432Gapntw outpatient visit 25 minutes Nathan BallFPG [facility] ClinicStart: 09-26-2023 End: 48-61-6788vozyqjmkfiKiyhrxdu Ball Other [facility] Other Start: 53-19-7959Ulhhnuinf encounterBenjamin BallFPG [facility] ClinicStart: 09-21-2023 End: 46-39-4720jeijxhpiakEbtxdira Ball Other [facility] Other Start: 94-00-8648Vhjtualtg encounterBenjamin BallFPG [facility] ClinicStart: 2023 End: 19-06-6258fbvusrzzhfFsijjlqs Ball Other [facility] [employer] [employer] Other Start: 34-92-9398Vzwzkrrzi encounterBenjamin BallFPG [facility] ClinicStart: 09-13-2023 End: 23-20-7018cegkygsqtpZxnbbljg Ball Other [facility] [employer] Other Start: 01-45-0052Dmujgjluh encounterBenjamin BallFPG [facility] ClinicStart: 09-11-2023 End: 26-93-9435srtwcudnzoIhztjkwg Ball Other [facility] [employer] Other Start: 67-78-6837Cjragd outpatient visit 15 minutes Nathan BallFPG [facility] ClinicStart: 08-16-2023 End: 34-22-8474hqjyplrvtdXdxttkxe Ball Other [facility] [employer] Other Start: 70-30-7748Btdugczqh encounterBenjamin BallFPG [facility] ClinicStart: 07-31-2023 End: 95-47-2730tnyjwhyzooWqoonrrd Ball Other [facility] [employer] Other Start: 35-98-5655Wjaenxpsl encounterBenjamin BallFPG [facility] ClinicStart: 07-30-2023 End: 66-29-7770ydtlwbabfbOngpyfpo Ball Other [facility] [employer] Other Start: 08-63-1754Rnucbxvse encounterBenjamin BallFPG [facility] ClinicStart: 07-19-2023 End: 00-85-3247hsxjxishwaTntnodit Ball Other [facility] Other Start: 19-26-3191Xdvevqsoy encounterBenjamin BallFPG [facility] ClinicStart: 07-18-2023 End: 53-93-6827anttwmidwoYudwzbbu Ball Other no[facility] Other Start: 25-69-5202Khcjkddle encounterBenjamin BallFPG [facility] ClinicStart: 07-17-2023 End: 20-38-7189gpzinmkslhOudmmhjd Ball Other [facility] Other Start: 38-80-0323Wklktqc evaluation of patient and reportBenjamin BallFPG [facility] ClinicStart: 06-28-2023 End: 15-29-0023spmxfnenyhYmezrpdn Ball Other [facility] [employer] Other Start: 34-06-5904Eivibvzqd encounterBenjamin BallFPG [facility] ClinicStart: 06-25-2023 End: 28-58-8956okgjlztzzyJyomrnbt Ball Other [employer] Other Start: 80-85-3753Awhviexmv encounterBenjamin BallFPG [facility] ClinicStart: 06-21-2023 End: 54-51-9135jfapzyzkksDalotjst Ball Other [facility] Other Start: 09-61-3675Faedroroh encounterBenjamin BallFPG [facility] ClinicStart: 06-19-2023 End: 65-39-1236klczmmganzHxrsqlye Ball Other [facility] Other Start: 05-30-8801Oeauonpbo encounterBenjamin BallFPG [facility] ClinicStart: 06-18-2023 End: 66-98-5259uabjezbgglAomjpaph Ball Other [facility] Other Start: 08-49-8041Kxwsewhtw encounterBenjamin BallFPG [facility] ClinicStart: 06-15-2023 End: 90-00-5490cgczqbdczbYwobmpxu Ball Other [facility] Other Start: 27-53-4296Qcagiushh encounterBenjamin BallFPG [facility] ClinicStart: 06-08-2023 End: 06-24-6159qaybesfritJvjtvviq Ball Other [facility] Other Start: 04-77-0655Frmgum outpatient visit 15 minutes Nathan YelenaG [facility] ClinicStart: 15-60-5183Xjmiojrew encounterCristy Manzanares RNHematology/OncologyComment on above:ResultsStart: 06-04-2023 End: 68-44-1969bwmlmozzakTkdxa R Murphy MD Work Phone: [facility] Other Comment on above:Abnormal SPEP (Primary Dx); Anemia, unspecified type; Neuropathy - (NOS); Heart diseaseStart: 06-04-2023 End: 24-39-5593Zdkykhy encounter procedureLuis Mckenzie MD Work Phone: SANDUSKYStart: 77-16-7386Vdavprznu encounterBenjamin BallFPG [facility] ClinicStart: 06-01-2023 End: 71-86-3029avvymdcdefQwjlywcl Ball Other [facility] Other Start: 49-33-5182Anaopmczv encounterBenjamin BallFPG [facility] ClinicStart: 05-25-2023 End: 45-39-6262ohdjnkpnpyGrqvvift Ball Other [facility] Other Start: 48-74-9419Xmjwbrxncmir care manage srvc 14 day dischargeBenjaairam KirkG [facility] ClinicStart: 05-17-2023 End: 98-22-1756Jpgnuzogrg and management of inpatientDO Nathan Hathaway Work Phone: [facility] Work Phone: Start: 05-17-2023 End: 13-22-5923hfltbiojqas encounterDO Nathan Hathaway Work Phone: [facility] Work Phone: Start: 05-16-2023 End: 94-03-1150eajrgpckznZgjprekk Ball Other [employer] Other Start: 20-37-9986Bkowyr outpatient visit 25 minutes Nathan BallZHAOG [facility] ClinicStart: 05-09-2023 End: 92-57-8890rybkfglgqsGktknbmg Ball Other [employer] Other Start: 57-22-0472Ygglib outpatient visit 25 minutes Nathan BallFPG [facility] ClinicStart: 74-89-9533Nbwwryiuq encounterBenjamin Chinyere Hathaway Work Phone: [phone]-Tsdoy [facility] 250 DO Work Phone: Start: 04-26-2023 End: 60-35-2094xgpitzsgbwLxcvtbqe Ball Other [employer] Other Start: 18-93-4498Qunwtx outpatient visit 25 minutes Nathan BallFPG [facility] ClinicStart: 67-89-5647Smlaehswv encounterBenjamin BallFPG [facility] ClinicStart: 04-18-2023 End: 13-29-4538vxcofhrwtlPzcqbbhj Ball Other [facility] Other Start: 23-77-2827Kpsplu outpatient visit 25 minutes Nathan BallFPG [facility] ClinicStart: 24-33-5507Nissptjeq encounterBenalberta KirkG [facility] ClinicStart: 03-27-2023 End: 37-03-1203ywmzolnkivTvjqlrrg Ball Other [facility] [employer] [employer] Other Start: 73-59-5324Zoxihusib encounterBenalberta KirkG [facility] ClinicStart: 03-15-2023 End: 46-22-0965tulgaxyhqgJgochcng Ball Other [place] [employer] [employer] Other Start: 69-07-6307Mkudzf outpatient visit 25 minutes Nathan [facility] ClinicStart: 03-09-2023 End: 29-90-4819rueppzatdrQeDr. Edinson PerryDe Borgia [employer] ([place] [employer]) Other Start: 08-99-8084Gruiktlrt encounterBenalbetra Hathaway Medical ClinicStart: 80-40-8323DVPPQLPFU, Provider: Edinson Perry, Status: Pen, Time: 10:00 AMBenjamin Chinyere Ball Work Phone: [phone]-Bqdcs [facility] 250 DO Work Phone: Start: 03-09-2023 End: 48-64-4995Ujhwzojqx to same day surgery centerDO Nathan Hathaway Work Phone: [facility]-Tip Finisher Work Phone: Start: 03-08-2023 End: 10-23-6561iwbscpqmktKW Nathan Hathaway Work Phone: [facility] Work Phone: Start: 03-08-2023 End: 49-32-5451Ydffojl encounter procedureDO Nathan Hathaway Work Phone: [facility] Slp-Dsz-Yjqroask Testing Work Phone: Start: 46-24-5767Uqwahn consultation new/estab patient 80 minBenjamin E Ball Work Phone: [phone]-Ghzqj [facility] 250 DO Work Phone: Start: 45-89-1222zxshfekedxQq. Edinson Perry Facility:[id number]: 03-05-2023 End: 77-68-3936bqhuawpoelVnryymyz Ball Other [employer] Other Start: 09-77-7958Jaajnaotf encounterBenjamin BallFPG [facility] ClinicStart: 03-01-2023 End: 03-68-7825jcpdsbadlqWY NATHAN BALLFacility:G5Mpgpw: 02-27-2023 End: 71-88-5415tsgelhoamcHvzxqpod Ball Other [employer] Other Start: 71-02-4523Elxohkezi encounterBenjamin BallFPG [facility] ClinicStart: 02-20-2023 End: 17-60-7970sqkjdcmgjkEkzylwqw Ball Other [employer] Other Start: 58-38-5648Vmaahipzu encounterBenjamin BallFPG [facility] ClinicStart: 02-14-2023 End: 46-12-7712lwlfmusvsxPpsberod Ball Other [facility] Other Start: 33-10-5489Jhvbtr outpatient visit 25 minutes Nathan BallFPG [facility] ClinicStart: 95-20-8024Pvsghqwkn encounterBenjamin BallFPG [facility] ClinicStart: 02-11-2023 End: 32-73-9982lgttxvbolbIzcktsfd Ball Other [facility] Other Start: 14-94-1625Ooxujbetl encounterBenjamin BallFPG [facility] ClinicStart: 02-08-2023 End: 16-86-2921Cbnjwoirwb and management of inpatientDR NATHAN BALLFacility:H1 Start: 02-02-2023 End: 62-46-4113wwvskzqrtkFdmuzcmj Ball Other [facility] Other Start: 60-77-3844Xgpzqn outpatient visit 25 minutes Nathan KirkG [facility] ClinicStart: 01-08-2023 End: 73-99-4314lvrelfqmhvKA NATHAN BALLFacility:K2Rosqt: 12-21-2022 End: 85-72-1836qrqnjywfkmMafodpac Ball Other [facility] Other Start: 97-34-7180Lkyzzgeso encounterBenjamin YelenaG [facility] ClinicStart: 12-20-2022 End: 81-50-4315rehrilquvkXcxukbvm Ball Other [facility] Other Start: 59-93-3336Vtnyoxujt encounterBenjamin YelenaG [facility] ClinicStart: 12-14-2022 End: 17-12-5668qnqdzchhpjZpckyrtc Ball Other [facility] Other Start: 78-21-1343Nwarqwu encounter procedureBenjamin YelenaG [facility] ClinicStart: 12-04-2022 End: 62-21-0126alfhxoavajTgbzw R Murphy MD Work Phone: Hematology/OncologyComment on above:Abnormal SPEP (Primary Dx); Neuropathy - (NOS); Lung nodulesStart: 12-04-2022 End: 80-08-6223Tewkhsu encounter procedureLuis Mckenzie MD Work Phone: SANDUSKYStart: 11-23-2022 End: 21-61-5092gwqguycamjAmfaejxt Ball Other [employer] Other Start: 81-69-9284Lwfiegguw encounterBenjaairam KirkG [facility] ClinicStart: 11-16-2022 End: 07-78-3951evfziqlacvBB NATHAN HATHAWAYFacility:R0Ugqip: 11-14-2022 End: 86-88-5270qhbhvqpoagUfjyopls Ball Other [employer] Other Start: 80-07-6433Tewsjx outpatient visit 25 minutes Nathan [facility] ClinicStart: 09-11-2022 End: 55-02-0520fxsxstvdfhKU NATHAN HATHAWAYFacility:E8Kiksf: 90-21-4062Dlygfflne encounterNatcameron Manzanares RNHematology/OncologyComment on above:ResultsStart: 08-28-2022 End: 38-44-4341Tyrpopmcsr hospital visit by physicianArrival Time Radiology Work Phone: Radiology Pet CTComment on above: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]Start: 05-29-2022 End: 04-31-7409Bshbu (SP) OfficeLuis Mckenzie MD Work Phone: Hematology/OncologyComment on above:Abnormal SPEP (Primary Dx); Neuropathy - (NOS); Disorder of adrenal gland (HCC); Lung nodulesStart: 55-03-8307Qzuwxvbpu encounterLuis Mckenzie MD Work Phone: Hematology/OncologyComment on above:Lab OrdersStart: 05-04-2022 End: 90-36-5752vrqqtoobrcHF NATHAN HATHAWAYFacility:N0Orxjy: 86-10-8751Qpkya health examinationBeron Hathaway Other [employer] Other Procedures DateProcedureProcedure DetailPerforming ClinicianStart: 17-35-1054Ncanr chest X-rayBeron Hathaway DO Work Phone: Start: 19-98-7080En soft tissue head & neck real time imge docAminah Esparza MD Work Phone: Start: 09-64-1596BjsqezridyNqlixcgl Ball DO Work Phone: Start: 20-63-5741Nc strs tst xers&/or rx cont ecg trcg onlyHolden Rosado 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-HOME MANAGEMENT SUPERVISOR Work Phone: Start: 52-35-8960Fuivupb of placement of stent for coronary artery diseaseS/P coronary artery stent placementHolden Rosado 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-HOME MANAGEMENT SUPERVISOR Work Phone: Start: 73-43-8077XK angiography of thoraxDO Nathan Hathaway Work Phone: Start: 74-51-9129Ftftzi scan of lower limb veinsDO Nathan Hathaway Work Phone: Start: 77-52-3084PU Ivus Initial VesselDO Nathan Hathaway Work Phone: Start: 29-90-8293DQ LHC & COR AngioDO Nathan Hathaway Work Phone: Start: 32-40-5444YK Stent 1st Vessel LAD DESDO Nathan Hathaway Work Phone: Start: 78-37-7463KM Stent 1st Vessel RCA VALERIDO Nathan Hathaway Work Phone: Start: 54-83-2293Bz abdomen & pelvis w/contrast Maynor Mckenzie MD Work Phone: Start: 24-68-6750Cr thorax w/contrast Maynor Mckenzie MD Work Phone: Start: 98-48-1303Bnlng depression screening assessment Luis Mckenzie MD Work Phone: Start: 22-58-5570Bujdj depression screening assessment Luis Mckenzie MD Work Phone: Start: 08-24-0083Gftvpwykr for malignant neoplasm of colonBenjamin Ball Other Start: 32-21-1323Kqdtbvgbc for osteoporosisBenjamin Ball Other Depression screeningBenjamin Ball Other HysterectomyBenjamin E Ball Work Phone: Screening for malignant neoplasm of breastBenjamin Ball Other Screening for malignant neoplasm of breastNathan Hathaway Other Total colonoscopyBeron Hathaway Work Phone: Comment on above:2012; Plan of Treatment DateCare ActivityDetailAuthorStart: 97-34-4550Bthcfqek ScreeningDiabetes ScreeningMercy Memorial Hospitaltart: 66-27-4036Hpgicpwn ScreeningDiabetes Screening [facility] Hospitaltart: 20-34-2619Smrmkcyj ScreeningDiabetes ScreeningMercy Memorial Hospitaltart: 38-36-9245MIQDGZLP SCREENDIABETES SCREENMercy Memorial Hospitaltart: 96-41-5197WETVWYRJ SCREENDIABETES SCREENMercy Memorial Hospitaltart: 10-27-2025 End: 76-49-8094Pqxjwgi encounter sqwtyksnt28/30/2025 2:10 PM EST Office Visit [place] [address] [facility] [address] [place] [id number] Edinson Perry DO [address] [facility] [address] [place] [address] [facility]Start: 10-07-2025 End: 44-91-1099emxtruekrl16/10/2025 3:00 PM EST Visit (SP) Office Hematology/Oncology [address] [place], [place] [phone] Valentin Leonard MD [address] [place] [address] [place] [address] 3 month ELDON with labHematology/OncologyComment on above:3 month ELDON with labStart: 10-07-2025 End: 14-16-7245Szwpswp encounter vyotwcwuk53/10/2025 2:45 PM EST Office Visit [facility] [address] [place], [place] [address] [address] 3 month ELDON with labNortBeaumont Hospital LaboratoryComment on above:3 month ELDON with labStart: 98-75-5451MWYBAFFC SCREEN DIABETES SCREENMercy Memorial Hospitaltart: 27-71-9430Fchsvne referralToledo Hospital Work Phone: Start: 07-08-2025 End: 54-50-7787rtiytizihb86/10/2025 10:00 AM EDT Visit (SP) Office Hematology/Oncology [address] [place] [address] Paolo Casillas APRN.HOME MANAGEMENT SUPERVISOR [address] [place] [address] Dr Hathaway 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 MGUSHematology/OncologyComment on above:Dr Hathaway wantkadie patient to continue seeing Paolo for MGUSStart: 07-08-2025 End: 29-53-3871Xxzpkpq encounter nrrfiafly60/10/2025 10:00 AM EDT Office Visit [facility] [address] [place] [address] [place] [address] Labs Per January Staff MessageNortBeaumont Hospital LaboratoryComment on above:Labs Per January Staff MessageStart: 07-06-2025 End: 28-23-2026VLC W Auto Differential panel - BloodCOMPLETE BLOOD COUNT AND DIFFERENTIAL Lab Routine Abnormal SPEP Expected: 07/06/2025, Expires: 10/05/2025 [facility] Work Phone: Comment on above:Expected: 07/06/2025, Expires: 10/05/2025Start: 07-06-2025 End: 91-12-1104Asqiyfwjemjxp metabolic 2000 panel - Serum or PlasmaCOMPREHENSIVE METABOLIC PANEL Lab Routine Abnormal SPEP Expected: 07/06/2025, Expires: 10/05/2025[facility]sw[facility] ClinicComment on above:Expected: 07/06/2025, Expires: 10/05/2025Start: 07-06-2025 End: 90-98-1022QIYJHJCURU PROTEIN, SERUM (BLOOD)MONOCLONAL PROTEIN, SERUM (BLOOD) Lab Routine Abnormal SPEP Expected: 07/06/2025, Expires: 10/05/2025 [facility] HospitalComment on above:Expected: 07/06/2025, Expires: 10/05/2025Start: 07-06-2025 End: 29-49-4248FNSXUOY ELECTROPHORESIS SERUM W/INTERPPROTEIN ELECTROPHORESIS SERUM W/INTERP Lab Routine Abnormal SPEP Expected: 07/06/2025, Expires: leveland ClinicComment on above:Expected: 07/06/2025, Expires: 10/05/2025 Start: 47-10-9263Wmdigpdlr vaccinationInfluenza Vaccine (#1)[facility] Start: 99-17-6782MVYGKBEX SCREENDIABETES SCREENMercy Memorial Hospitaltart: 05-04-2025 COVID-19 Vaccine ()COVID-19 Vaccine () [facility]: [facility] End: 78-14-4611Uaugzen encounter /02/2025 9:30 AM EDT Office Visit [facility] [address] [place] [address] Fercho Tse DO [address] [place] [address] [facility] OPHTStart: 03-17-2025 End: 56-26-7406Lhgipua encounter tdipeigso48/20/2025 10:45 AM EDT Appointment [place] [address] [place] [phone] [facility]: [facility] End: 65-64-6201Utteiwt encounter procedureNOMS CI ENTComment on above:Arrived Start: 01-26-2025 End: 50-91-2817Lsyzujljnwep / ancillary services ljolfofbft14/31/2025 3:00 PM EDT Ancillary Procedure [address] [place] [address] [address] [facility]: [facility] End: 64-36-9904Zogxpi monitor studyHolter Or Event Computer Network And Systems Engineer Cardiac Services Routine Palpitations Expected: 01/12/2025 (Approximate), Expires: 01/12/2026[facility] Service Area Work Phone: Comment on above:Expected: 01/12/2025 (Approximate), Expires: 01/12/2026Start: 01-12-2025 End: 03-40-1885XN Heart TransthoracicTransthoracic Echo Complete Echocardiography Routine Essential hypertension Palpitations Expected: 0 01/12/2025 (Approximate), Expires: 01/12/2027[facility] Work Phone: Comment on above:Expected: 01/12/2025 (Approximate), Expires: 01/12/2027Start: 11-25-2024 End: 96-41-4967Xgkuulj encounter bxnidajri94/28/2025 2:00 PM EST Office Visit [facility] [address] [place] [phone] Reyna Esparza MD [address] [place], [place] [id number] ArrivedNOMS CI ENTComment on above:ArrivedStart: 99-23-7948Ttorsey referralToledo Hospital Work Phone: Start: 12-50-0616DamfcwuriSelect Medical Trihealth Rehabilitation Hospital Start: 56-09-8835DjhozbhpjsIdnmbirgoCleveland Clinic Akron Generaltart: 10-29-2024 Advance Directive DiscussionAdvance Directive DiscussionMercy Memorial Hospitaltart: 10-08-2024 End: 75-75-0160Bmhwsds encounter qcytqtcpv83/11/2024 10:40 AM EST Office Visit [place] [address] [facility] [address] [place] [address] Edinson Perry DO [address] [facility] [address] [place] [address] [facility]: 04-70-2282Xiqdu-19 Vaccine ( season)Covid-19 Vaccine ( season)[facility] Hospitaltart: 01-77-8028Bmyprdvwh vaccinationFort Hamilton HospitalStart: 04-21-2024 End: 83-55-2696Plyeb metabolic 2000 panel - Serum or PlasmaBasic Metabolic Panel Lab Routine ASHD (arteriosclerotic heart disease) Expected: 04/21/2024 (Approx imate), Expires: 04/21/2025[facility] Service Area Work Phone: Comment on above:Expected: 04/21/2024 (Approximate), Expires: 04/21/2025Start: 04-21-2024 End: 90-60-4559Uuacykk encounter uquiuibyw40/24/2024 10:30 AM EDT Office Visit [facility] [address] [facility] [address] [place] [address] Holden Rosado, 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-HOME MANAGEMENT SUPERVISOR [address] [place] [address] [facility]: 03-12-2024 End: 65-00-0853Yevodnl encounter ztmrijohs11/15/2024 10:15 AM EDT Appointment [place] [address] [facility] [address] [place] [phone] [facility]: 03-12-2024 End: 23-19-0220Jnqkjxp encounter procedure [place] [facility]: 03-05-2024 End: 44-21-5425Nffjw metabolic 2000 panel - Serum or PlasmaBasic Metabolic Panel Lab Routine Essential hypertension Expected: 03/05/2024 (Approximate), Expires: 03/05/2025[facility] Work Phone: Comment on above:Expected: 03/05/2024 (Approximate), Expires: 03/05/2025Start: 03-05-2024 End: 14-85-0228YJ Heart Perfusion W stress and W radionuclide IVNuclear Stress Test Cardiac Nuclear Medicine Routine ASHD (arteriosclerotic heart disease) Expected: 03/05/2024 (Approximate), Expires: 03/05/2026[facility] Service Area Work Phone: Comment on above:Expected: 03/05/2024 (Approximate), Expires: 03/05/2026Start: 48-66-1790GqafnztwmeqegonkQlrhqilerhnzfmKyordrkqlv [facility] ClevelandStart: 85-24-8269Hygyhhn Directive DiscussionAdvance Directive DiscussionMercy Memorial Hospitaltart: 09-44-1579SON, Provider: Edinson Perry, Status: Pen, Time: 11:20 AMFUV, Provider: Edinson Perry, Status: Pen, Time: 11:20 AM-[facility] [address] DO Work Phone: Start: 88-19-5614CORXE-19 Vaccine () COVID-19 Vaccine ()[facility]: 06-76-3758Lzrvwhsdg vaccinationINFLUENZA (#1)[facility] Hospitaltart: 05-29-2023 Adult depression screening assessmentDEPRESSION SCREENINGMercy Memorial Hospitaltart: 14-89-8845JBZ, Provider: Edinson Perry, Status: Pen, Time: 10:20 AMFUV, Provider: Edinson Perry, Status: Pen, Time: 10:20 [facility] 250 DO Work Phone: Start: 70-57-2622VhcuvqdltSelect Medical Trihealth Rehabilitation Hospital Start: 22-82-6777Tmxwtavc admissionCleveland Clinic Akron Generaltart: 14-22-1126DfrlqjxdfCleveland Clinic Akron Generaltart: 26-84-1776CUYNX-19 VACCINE (6 - Pfizer series)COVID-19 VACCINE (6 - Pfizer series)[facility]: 83-77-6195Ekqsh depression screening assessmentDEPRESSION SCREENINGMercy Memorial Hospitaltart: 40-04-8115HXAXEEB DIRECTIVE DISCUSSIONADVANCE DIRECTIVE DISCUSSION [facility]: 02-09-3599XUWBHSLBJT ASSESSMENTDEPRESSION ASSESSMENT [facility]: 06-18-2861FWXQL-19 Vaccine (3 - Pfizer risk series)COVID- 19 Vaccine (3 - Pfizer risk series)[facility]: 54-58-9996Ssmhfjbyr vaccinationINFLUENZA (#1)[facility]: 03-25-2022 COVID-19 VACCINE (5 - Booster for Pfizer series)COVID-19 VACCINE (5 - Booster for Pfizer series)[facility]: 93-89-5293MPICPCN DIRECTIVE DISCUSSION ADVANCE DIRECTIVE DISCUSSIONMercy Memorial Hospitaltart: 10-60-6858MDRVBWAAXA ASSESSMENTDEPRESSION ASSESSMENTMercy Memorial Hospitaltart: 93-09-6980Iyxvwgxl Vaccine (3 of 3)Shingrix Vaccine (3 of 3)[facility]: 08-49-6688Yudqoz Vaccines (2 of 2)Zoster Vaccines (2 of 2)[facility]: 58-56-3317RHUMHFRI VACCINE (2 of 2)SHINGRIX VACCINE (2 of 2)[facility] Start: 83-59-0291ANF High Risk: (Elderly (60+) or Population) (1 - 1- dose 75+ series)RSV High Risk: (Elderly (60+) or Population) (1 - 1- dose 75+ series)[facility]: 28-12-6466PMX Vaccine (1 - 1-dose 75+ series)RSV Vaccine (1 - 1-dose 75+ series)[facility]: 08-23-7069UNrT/Tdap/Td Vaccines (1 - Tdap)DTaP/Tdap/Td Vaccines (1 - Tdap) [facility]: 03-99-2603Gjtoi microalbumin profile DTaP,Tdap,Td Vaccine (1 - Tdap)[facility]: 69-34-4104DMRC DENSITYBONE DENSITYMercy Memorial Hospitaltart: 90-29-5322YGDQFLQAUQLI: 65+ (1 - PCV) PNEUMOCOCCAL: 65+ (1 - PCV)[facility]: 06-02-2165Hrkwkapvm for osteoporosisBone Density ScreeningMercy Memorial Hospitaltart: 11-01-2007Medicare Annual Wellness VisitMedicare Annual Wellness VisitMercy Memorial Hospitaltart: 72-88-0891DRS patients and/or patients aged 60+ years (1 - 1-dose 60+ series)RSV patients and/or patients aged 60+ years (1 - 1-dose 60+ series)[facility]: 95-99-3808VOgG/Tdap/Td Vaccines (1 - Tdap)DTaP/Tdap/Td Vaccines (1 - Tdap)[facility] Start: 30-79-3405Vqcxf microalbumin profileDTAP,TDAP,TD (1 - Tdap)[facility]: 37-28-5468Enpxrbb ScreeningAnxiety ScreeningMercy Memorial Hospitaltart: 86-62-3831Idztuhihar ScreeningDepression ScreeningMercy Memorial Hospitaltart: 87-36-8353Sqfzwfvf mellitus screeningDiabetes ScreeningOhioHealth [facility]: 81-75-1401Scvotehnhu measurementCreatinine [facility]: 22-61-9066Ycikp panelLipid PanelOhioHealth Mansfield Hospital: 1942Medicare Annual Wellness VisitMedicare Annual Wellness Visit (AWV)[facility]: 1940 Potassium measurementPotassium [facility]: 86-08-8475Jwfqgirjd for osteoporosisBone Density ScanFort Hamilton HospitalComprehensive metabolic 2000 panel - Serum or PlasmaSelect Medical Trihealth Rehabilitation Hospital End: 80-69-1683Zv abdomen & pelvis w/contrast materialCT ABD/PEL W IVCON Radiology Routine Disorder of adrenal gland (HCC) 1 Occurrences starting 05/29/2022 until [facility] Work Phone: Comment on above:1 Occurrences starting 05/29/2022 until 06/28/2023 End: 09-69-2867FQ CHEST W IVCONCT CHEST W IVCON Radiology Routine Lung nodules 1 Occurrences starting 05/29/2022 until 3CM[facility] Work Phone: Comment on above:1 Occurrences starting 05/29/2022 until 3Patient EducationSumma Health [facility] Campus Ctr Work Phone: Patient referralSumma Health Akron Campus Ctr Work Phone: End: 86-12-8046UP Heart TransthoracicGALLUP INDIAN MEDICAL CENTER Service Area Work Phone: Comment on above:Once for 1 Occurrences starting 03/17/2025 until 03/17/2025XR Knee - right 4 ViewsFirelands Regional Medical CenterAscension [facility] Immunizations Immunization DateImmunizationNotesCare AssezbnnWwjpsbef43-90-9821vhlibgtdf, high dose seasonal, preservative-freeSelect Medical Trihealth Rehabilitation Hospital09-18-2024 influenza virus vaccine, unspecified formulationPaolo Casillas APRN.CNP Work Phone: [facility] HospitalZuznly38-06-8717cqqqfncmh virus vaccine, unspecified formulationSelect Medical Trihealth Rehabilitation Hospital10-09-2023influenza, high dose seasonal, preservative-freeBenalberta Hathaway Other [employer] Other 11921021-83-3049ZJGFO-51 Pfizer (Pediatric)Nathan Hathaway Other [facility]11-18-2022Pfizer COVID-19 Vac Bivalent 30 MCG/0.3ML Intramuscular SuspensionNathan Hathaway Work Phone: [facility]10-14-2022influenza virus vaccine, split virus (incl. purified surface antigen)Nathan Hathaway Other [employer] Other 582279-42-6277umzpozffh virus vaccine, unspecified formulationSelect Medical [facility]health Rehabilitation Hospital04-02-2022COVID-19 mRNA, Comirnaty (Pfizer)DO Nathan Hathaway Work Phone: [facility]04-02-2022COVID-19 PfizerBeron Hathaway Other [facility]10-02-2021COVID-19 vaccine, age 12+ yr (H?REL-BIONTVenueBook - [facility])Luis Mckenzie MD Work Phone: [facility] HospitalXbmjev56-19-1911tpsoil vaccine, liveBenjaairam Hathaway Other [facility]09-21-2021influenza, high-dose, quadrivalent vaccine (FLUZONE HIGH DOSE QUADRIVALENT)Luis Mckenzie MD Work Phone: [facility] HospitalWueurg37-81-4571dlxjojbzm virus vaccine, split virus (incl. purified surface antigen)Nathan Hathaway Other [employer] ([place]) Other 09-498100-30-7740uunhmtseo virus vaccine, unspecified formulationSelect Medical [facility]health Rehabilitation Hospital07-24-2021zoster vaccine recombinant Luis Mckenzie MD Work Phone: [facility] HospitalTqsnjx65-52-2530fivwts vaccine, liveBenalberta Hathaway Other [facility]02-20-2021COVID-19 vaccine, age 12+ yr (PFIZER-BIONTECH - PURPLE TOP)Luis Mckenzie MD Work Phone: [facility] HospitalCdkhsz79-86-9628GFVFM-39 Vaccine Moderna - Documentation Purposes OnlyNathan Hathaway Other [facility]01-30-2021COVID-19 vaccine, age 12+ yr (PFIZER-BIONTECH - PURPLE TOP)Luis Mckenzie MD Work Phone: [facility] HospitalLnkufj02-90-4880jxfjqrdzj virus vaccine, split virus (incl. purified surface antigen)Nathan Hathaway Other [employer] Other 10880332-89-9436fqocqnovj virus vaccine, unspecified formulationSelect Medical [facility] Rehabilitation Hospital09-11-2019AS03 adjuvantArrival Radiology Work Phone: [facility] HospitalYplkxd15-35-7822Wowsjxxw trivalent influenza vaccine, adjuvanted, preservative Ras Mckenzie MD Work Phone: [facility] HospitalTeqpqu97-53-1078WZ50 adjuvantArrival Radiology Work Phone: [facility] HospitalZxulyk55-55-5393izwtgrciv virus vaccine, split virus (incl. purified surface antigen)Nathan Hathaway Other [place] [employer] ([place]) Other 10051968-88-5882hxgmxfllo virus vaccine, unspecified formulationSelect Medical Trihealth Rehabilitation Hospital10-16-2018Seasonal trivalent influenza vaccine, adjuvanted, preservative Ras Mckenzie MD Work Phone: [facility] HospitalItujls94-84-7814paevkkxls virus vaccine, split virus (incl. purified surface antigen)Nathan Hathaway Other [facility] [employer] ([place]) Other 10953515-07-2739pymdowwsw virus vaccine, unspecified formulationSelect Medical Trihealth Rehabilitation Hospital10-06-2017influenza, high dose seasonal, preservative-Ras Mckenzie MD Work Phone: [facility] HospitalYmyuac90-10-1383dmddffxgp virus vaccine, split virus (incl. purified surface antigen)Nathan Hathaway Other [facility] [employer]) Other 09-772919-48-8788wwbzudemq virus vaccine, unspecified formulationSelect Medical Trihealth Rehabilitation Hospital11-16-2015pneumococcal conjugate vaccine, 13 valentBenjamin Fransico Other [facility]10-20-2015influenza virus vaccine, split virus (incl. purified surface antigen)Nathan Hathaway Other [facility] [employer] ([place]) Other 10-421606-73-0106cjumirpiu virus vaccine, unspecified formulationSelect Medical Trihealth Rehabilitation Hospital09-18-2014tetanus and diphtheria toxoids, adsorbed, preservative free, for adult use (5 Lf of tetanus toxoid and 2 Lf of diphtheria toxoid)Nathan Hathaway Other [facility]09-11-2013tetanus and diphtheria toxoids, adsorbed, preservative free, for adult use (5 Lf of tetanus toxoid and 2 Lf of diphtheria toxoid)Nathan Hathaway Other [facility]10-14-2010 pneumococcal polysaccharide vaccine, 23 valentBenjamin Fransico Other [facility] Payers DatePayer CategoryPayerPolicy [id number] supplemental policy (as second payer)AARP [id number] Private Health InsuranceOH[facility]HEALTH [facility] AARP SUPPLEMENT [id number] 2020-Present [phone] [address] [place] [address] Indemnity [id number] Health [id number] 2007MedicareMEDICARE MEDICARE A AND B [id number] 2007-Present [phone] [place] [address] [id number] 2007Medicare [id number] [id number] [id number] 2.16.840.7.985642.7695-20-1942 [id number] 2.16840.1.502296.3.57[id number] 2.16.840.1.965464.3.57[id number] 2.16.840.1.402602.3.57[id number] 2.16.840.1.971091.3.57[id number] 2.16.840.1.804239.3.57[id number] 2.16.840.1.246722.3.57[id number] 2.16840.1.495767.3.57[id number] 2.16840.1.552392.3.579.[id number] 2.16.840.1.903987.3.579.[id number] 2.16.840.1.664930.3.57[id number] 2.16840.1.718088.3.579.[id number] 2.16840.1.247728.3.57[id number] 2.16840.1.052502.3.57[id number] 2.16840.1.026124.3.579.[id number] 2.16840.1.740646.3.57[id number] 2.16.840.1.262670.3.57[id number] 2.16.840.1.524258.3.579.2.1246MedicareMedicare [id number] Social History DateTypeDetailFacilityStart: 08-01-2021 End: 01-57-4048Oecswju smoking status NHISEx-smokerClinton Memorial Hospital End: 12-38-1956Lzomghn of tobacco useCigarette SmokerMercy Memorial Hospitaltart: 08-01-2021 End: 96-95-7418Opifzes use and exposureSmokeless tobacco non-userMercy Memorial Hospitaltart: 34-77-4981Tnz Assigned At BirthNot on fileMercy Memorial Hospitaltart: 05-12-2022 End: 20-74-2973Exkesvfy to SARS-CoV-2 (event)Not sureClinton Memorial Hospital End: 06-83-3821Mbhsxnl of tobacco useCurrent smokerMercy Memorial Hospitaltart: 12-04-2022 End: 46-88-9623Glj Assigned At BirthMercy Memorial Hospitaltart: 12-04-2022 End: 44-59-1372Gq illicit drug useNo illicit drug useClinton Memorial HospitalComment on above:2 coffees in am and 1 coffee at hs;1997;Start: 60-77-7042Sck Assigned At BirthFeOhioHealth Grady Memorial Hospitaltart: 06-04-2023 End: 00-08-0398Lnhewvp intakeEx-drinker (finding)[facility]tart: 91-80-5427Hghqr Depression Screening Wizdiuapql0Ijhmsdynl ClinicStart: 12-18-2023 End: 02-09-6895Esjcyed smoking status NHISNever smoked tobacco (finding) [facility]: 03-05-2024 End: 17-04-5945Dkvfikzvw beverage intakeLifetime non-drinker (finding)[facility] Work Phone: Start: 09-11-2024 End: 38-30-6635HgdHcfuqa (finding)[facility] Medical Equipment Procedure CodeEquipment CodeEquipment Original TextEquipment IdentifierDatesCL STENT WILLIE FRONTIER 2.5 X 18FDAStart: 00-22-1283RN STENT WILLIE FRONTIER 4.0 X 15 FDAStart: 27-75-7475JA STENT WILLIE FRONTIER 4.0 X 18FDAStart: 51-35-5934LS STENT WILLIE FRONTIER 2.5 X 18FDAStart: 79-81-7897OT STENT WILLIE FRONTIER 4.0 X 15FDA Start: 36-97-6614ZU STENT WILLIE FRONTIER 4.0 X 18FDAStart: 23-35-0723QG STENT WILLIE FRONTIER 2.5 X 18FDAStart: 52-28-2700GD STENT WILLIE FRONTIER 4.0 X 15FDA Start: 55-97-2926JD STENT WILLIE FRONTIER 4.0 X 18FDAStart: 30-37-0676NR STENT WILLIE FRONTIER 2.5 X 18FDAStart: 72-42-7477IQ STENT WILLIE FRONTIER 4.0 X 15FDA Start: 61-20-5481TJ STENT WILLIE FRONTIER 4.0 X 18FDAStart: 60-84-4997UC STENT WILLIE FRONTIER 2.5 X 18FDAStart: 17-14-5324GX STENT WILLIE FRONTIER 4.0 X 15FDA Start: 52-20-3429YQ STENT WILLIE FRONTIER 4.0 X 18FDAStart: 41-30-9299SJ STENT WILLIE FRONTIER 2.5 X 18FDAStart: 40-84-7599AS STENT WILLIE FRONTIER 4.0 X 15FDA Start: 63-78-8011MG STENT WILLIE FRONTIER 4.0 X 18FDAStart: 04-78-4440BM STENT WILLIE FRONTIER 2.5 X 18FDAStart: 83-91-7883OV STENT WILLIE FRONTIER 4.0 X 15FDA Start: 51-26-0425HT STENT WILLIE FRONTIER 4.0 X 18FDAStart: 49-29-0017ZP STENT WILLIE FRONTIER 2.5 X 18FDAStart: 54-73-9955BL STENT WILLIE FRONTIER 4.0 X 15FDA Start: 89-39-0960EE STENT WILLIE FRONTIER 4.0 X 18FDAStart: 55-49-7660QY STENT WILLIE FRONTIER 2.5 X 18FDAStart: 69-24-7261CL STENT WILLIE FRONTIER 4.0 X 15FDA Start: 25-83-4108BG STENT WILLIE FRONTIER 4.0 X 18FDAStart: 01-96-3799HL STENT WILLIE FRONTIER 2.5 X 18FDAStart: 39-11-3218SA STENT WILLIE FRONTIER 4.0 X 15FDA Start: 52-52-0716XL STENT WILLIE FRONTIER 4.0 X 18FDAStart: 88-01-8885QW STENT WILLIE FRONTIER 2.5 X 18FDAStart: 46-35-7651FN STENT WILLIE FRONTIER 4.0 X 15FDA Start: 35-60-2422XQ STENT WILLIE FRONTIER 4.0 X 18FDAStart: 88-02-9575XF STENT WILLIE FRONTIER 2.5 X 18FDAStart: 56-51-6596ST STENT WILLIE FRONTIER 4.0 X 15FDA Start: 15-67-5460TA STENT WILLIE FRONTIER 4.0 X 18FDAStart: 71-33-1795SI STENT WILLIE FRONTIER 2.5 X 18FDAStart: 78-37-2093WW STENT WILLIE FRONTIER 4.0 X 15FDA Start: 81-60-6490SQ STENT WILLIE FRONTIER 4.0 X 18FDAStart: 56-15-7678DT STENT WILLIE FRONTIER 2.5 X 18FDAStart: 46-03-4378DB STENT WILLIE FRONTIER 4.0 X 15FDA Start: 48-96-2033BZ STENT WILLIE FRONTIER 4.0 X 18FDAStart: 95-22-0425PT STENT WILLIE FRONTIER 2.5 X 18FDAStart: 06-86-3359RS STENT WILLIE FRONTIER 4.0 X 15FDA Start: 19-12-1311XB STENT WILLIE FRONTIER 4.0 X 18FDAStart: 52-21-1020FP STENT WILLIE FRONTIER 2.5 X 18FDAStart: 70-05-7576CZ STENT WILLIE FRONTIER 4.0 X 15FDA Start: 74-86-2471TT STENT WILLIE FRONTIER 4.0 X 18FDAStart: 03-09-2023 Goals DatePatient GoalDesired Activity/State Functional Status EpxaGtdsaeyeubOamdycUjegpizg63-99-2543Mdzvwverdj statusPatient at Baseline [facility] Work Phone: 1(278) 620-101405622792-34-0473Tvrrnuwdyj statusPatient at Baseline [facility] Work Phone: Mental Status DhonBayywvtwzdDejoqvAvfxrcfk29-54-2546Uslakmqhw functionCognitive Status Patient at BaselineSum[facility] Work Phone: 1(788) 871-824905-867768-34-8108Hsizjesjp functionCognitive Status Patient at BaselineSumma [facility] Work Phone: Clinical Notes 05-29-2022 to 07-10-2025 Note Date & MuviMhuwPpsrscrh61-46-2463 Telephone encounter Note* Telephone Encounter - Yolanda Cobian RN - 07/10/2025 2:11 PM EDT Refer to providers phone encounter for details of follow up/intervention Yolanda Cobian RN [facility]09-12-2025 Miscellaneous Notes* Telephone Encounter - Yolanda Cobian RN - 07/10/2025 2:11 PM EDT Refer to providers phone encounter for details of follow up/intervention Yolanda Cobian RN * Telephone Encounter - Yolanda Cobian RN - 07/10/2025 9:17 AM EDT Labs still pending. Yolanda Cobian RN * Telephone Encounter - Kayla Arriaga 07/08/2025 11:23 AM EDT Please call Her daughter Marianna with today's lab results. [phone] documented in this encounterClinton Memorial Hospital09-12-2025 Telephone encounter Note * Telephone Encounter - Yolanda Cobian RN - 07/10/2025 11:[address] Hathaway's office and spoke with Dayana. I informed her of Mrs Joaquin worsening anemia/renal function and elevated blood proteins (refer to note per Kg Petit PA-C from today). She appreciated the update and will discuss with Dr Hathaway. Yolanda Cobian RN [facility]09-12-2025 Miscellaneous Notes* Telephone Encounter - Yolanda Cobian RN - 07/10/2025 11:[address] Hathaway's office and spoke with Dayana. I informed her of Mrs Joaquin worsening anemia/renal function and elevated blood proteins (refer to note per Kg Petit PA-C from today). She appreciated the update and will discuss with Dr Hathaway. Yolanda Cobian RN * Telephone Encounter - Cat Landeros - 07/10/2025 11:[address] Nathan Hathaway's office is calling today regarding Asking the question why labs were repeated on 07/08/2025 when she just had labs drawn on 06/23/2025.Please call Dr Hathaway's office back. Patient has been identified by name and birthdate. Person calling: Dr Nathan Hathaway's office Please return the call at [phone] KERRY Menendez documented in this encounterCleveland Tkosvq02-07-6298 Telephone encounter Note * Telephone Encounter - Cat Landeros - 07/10/2025 11:[address] Nathan Hathaway's office is calling today regarding Asking the question why labs were repeated on 07/08/2025 when she just had labs drawn on 06/23/2025.Please call Dr Hathaway's office back. Patient has been identified by name and birthdate. Person calling: Dr Nathan Hathaway's office Please return the call at [phone] KERRY Menendez [facility]09-12-2025 Telephone encounter Note* Telephone Encounter - Yolanda Cobian RN - 07/10/2025 9:17 AM EDT Labs still pending. Yolanda Cobian RN [facility]09-10-2025 Telephone encounter Note* Telephone Encounter - Kayla Arriaga - 07/08/2025 11:23 AM EDT Please call Her daughter Marianna with today's lab results. [phone] [facility]09-09-2025 NoteHNO ID: [id number] Author: PAOLO CASILLAS APRN.HOME MANAGEMENT SUPERVISOR Service: ? Author Type: Nurse Practitioner Type: [...] Never Vaping Use Vap (more content not included)...[facility]09-09-2025 History of Present illness Narrative* Paolo Casillas APRN.HOME MANAGEMENT SUPERVISOR - 07/07/2025 5:54 PM EDT PATIENT NAME: Lashaun Joaquin DATE: 07/08/2025 PRIMARY [...] of a thyroid nodule, which was biopsied butthe sample was insufficient. She was advised to [...] for a different diuretic. She also experiences jointpain in her knees, back, and ankles. She [...] as he has had multiple recent ER visitsfor anxiety-related symptoms. MEDICATIONS: Current Outpatient Medications Medication [...] 06/23/2025. (Scanned) IgM elevated, M-protein 0.2, and [place]/Lambda ration 10.59. Will repeat labs today. Hemoglobin [...] shortness of breath and was hospitalized at [facility] treated for suspected pneumonia. Apparently it was later felt she had heart disease, and cardiac catheterization revealed severe coronary artery disease. She subsequently underwent stent placement at [facility]. April 2023 she developed severe shortness of breath and was hospitalized at [facility] 05/17/2023with CHF. She improved with diuresis but [...] which included preparing to see the patient, [id number] patient care, completing clinical documentation, obtaining and/or reviewing separately obtained history, performing a medically appropriate examination, counseling and educating the pat ient/family/caregiver, ordering medications, tests, or procedures, independently interpreting results (not separately reported), and communicating results to the patient/family/caregiver. [facility] Telephone encounter Note * Telephone Encounter - Loree Rosado MA - 07/06/2025 9:31 AM EDT Patient coming Sunday07/08/25 for follow up labs. Please add lab orders. Thanks. Loree Rosado MA [facility]07[facility] Evaluation note* Diagnosis Onset Date Resolution Status Admit Date Acute bronchitis due to other specified organisms noneactiveJuly 2024 3:17pmAcute exacerbation of chronic obstructive airways diseasenoneactiveJuly 2024 3:17pmASHD (arteriosclerotic heart disease)acuteAugust 2024 9:23amChronic bronchitisacuteAugust 2024 9:23amChronic kidney diseaseacuteAugust 2024 9:23amChronic venous insufficiencyacuteAugust 2024 9:23amEssential hypertensionacuteAugust 2024 9:23amGAD (generalized anxiety disorder)acuteAugust 2024 9:23am Gastroesophageal reflux disease with esophagitis without hemorrhageacuteAugust 2024 9:23amHypercholesterolemiaacuteAugust 2024 9:23amMGUS (monoclonal gammopathy of unknown significance)acuteAugust 2024 9:23am ObesityacuteAugust 2024 9:23amScreening mammogram for breast canceracute June 19, 2025 9:23amSubclinical hypothyroidismacuteAugust 2024 9:23am Thyroid noduleacuteAugust 2024 9:23amAcute on chronic heart failure with preserved ejection fraction (HFpEF)noneactiveAugust 2024 9:23amMedicare annual wellness visit, subsequentnoneactiveAugust 2024 9:23am [facility] Work Phone: 1(973) 311-648607-22-2025 Evaluation note* Diagnosis Onset Date Resolution Status Admit Date Acute bronchitis due to other specified organisms noneactiveJuly 2024 3:17pmAcute exacerbation of chronic obstructive airways diseasenoneactiveJuly 2024 3:17pmAnemiaacuteAugust 2024 9:23amASHD (arteriosclerotic heart disease)acuteAugust 2024 9:23amChronic bronchitisacuteAugust 2024 9:23amChronic kidney diseaseacuteAugust 2024 9:23amChronic venous insufficiencyacuteAugust 2024 9:23amEssential hypertensionacuteAugust 2024 9:23amGAD (generalized anxiety disorder)acute June 19, 2025 9:23amGastroesophageal reflux disease with esophagitis without hemorrhageacuteAugust 2024 9:23amHypercholesterolemiaacuteAugust 2024 9:23amMGUS (monoclonal gammopathy of unknown significance)acuteAugust 2024 9:23amObesityacuteAugust 2024 9:23amScreening mammogram for breast canceracuteAugust 2024 9:23amSubclinical hypothyroidismacuteAugust 2024 9:23amThyroid noduleacuteAugust 2024 9:23amAcute on chronic heart failure with preserved ejection fraction (HFpEF)noneactiveAugust 2024 9:23amMedicare annual wellness visit, subsequentnoneactiveAugust 2024 9:23amAnemiaacuteSeptember 2024 3:32pmASHD (arteriosclerotic heart disease)acuteSeptember 2024 3:32pmChronic bronchitisacuteSeptember 2024 3:32pmChronic kidney diseaseacuteSeptember 2024 3:32pmChronic venous insufficiencyacuteSeptember 2024 3:32pmEssential hypertensionacute [place] 2024 3:32pmGAD (generalized anxiety disorder)acuteSeptember 2024 3:32pmMGUS (monoclonal gammopathy of unknown significance)acute July 21, 2025 3:32pmObesityacuteSeptember 2024 3:32pmScreening mammogram for breast canceracuteSeptember 2024 3:32pmSubclinical hypothyroidismacuteSeptember 2024 3:32pmAcute on chronic heart failure with preserved ejection fraction (HFpEF)noneactiveSeptember 2024 3:32pm [facility] Work Phone: 1(328) 199-449707-22-2025 Evaluation note* Diagnosis Onset Date Resolution Status Admit Date Acute bronchitis due to other specified organisms noneactiveJuly 2024 3:17pmAcute exacerbation of chronic obstructive airways diseasenoneactiveJuly 2024 3:17pmAnemiaacuteAugust 2024 9:23amASHD (arteriosclerotic heart disease)acuteAugust 2024 9:23amChronic bronchitisacuteAugust 2024 9:23amChronic kidney diseaseacuteAugust 2024 9:23amChronic venous insufficiencyacuteAugust 2024 9:23amEssential hypertensionacuteAugust 2024 9:23amGAD (generalized anxiety disorder)acute [place] 2024 9:23amGastroesophageal reflux disease with esophagitis without hemorrhageacuteAugust [...] with preserved ejection fraction (HFpEF)noneactiveSeptember 2024 3:32pm [facility] Work Phone: 1(107) 108-366905-16-2025 Evaluation note* Diagnosis Onset Date Resolution Status Admit Date ASHD (arteriosclerotic heart disease) acuteMay 2024 1:04pmChronic bronchitisacuteMay 2024 1:04pmChronic heart failure with preserved ejection fraction (HFpEF)acuteMay 2024 1:04pm Chronic venous insufficiencyacuteMay 2024 1:04pmSubclinical hypothyroidism acuteMay 2024 1:04pmASHD (arteriosclerotic heart disease)acuteMay 2024 11:21amChronic bronchitisacuteMay 2024 11:21amChronic kidney disease acuteMay 2024 11:21amChronic venous insufficiencyacuteMay 2024 11:21amEssential hypertensionacuteMay 2024 11:21amHypercholesterolemia acuteMay 2024 11:21amObesityacuteMay 2024 11:21amSubclinical hypothyroidismacuteMay 2024 11:21amThyroid noduleacuteMay 2024 11:21amAcute on chronic heart failure with preserved ejection fraction (HFpEF) noneactiveMay 2024 11:21am [facility] Work Phone: 1([phone] 480-395204-15-2025 History of Present illness Narrative* Reyna Esparza MD - 02/25/2025 9:00 AM EDT Subjective Patient ID: Lashaun Joaquin is a 84 y.o. female who presents for Thyroid Nodule (Follow ultrasound [facility] 02/10/25) US shows an 11mm nodule that is unchanged and mult subcentimeter nodules. No family history on file. Active Ambulatory Problems Diagnosis Date Noted Dry eyes 04/28/2024 Epiretinal membrane (ERM) of left eye 04/28/2024 Blepharitis of upper and lower eyelids of both eyes 04/28/2024 Abnormal cardiovascular stress test 11/24/2024 Adrenal nodule ([facility]) 11/24/2024 Anemia 11/24/2024 ASHD (arteriosclerotic heart disease) ([facility]) 10/17/2023 Atrophic vaginitis 11/24/2024 BMI 33.0-33.9,adult 03/05/2024 Cervical spondylosis with radiculopathy 11/24/2024 Chronic bronchitis ([facility]) 11/24/2024 Chronic heart failure with preserved ejection fraction (HFpEF) ([facility]) 11/24/2024 Chronic obstructive pulmonary disease with (acute) exacerbation ([facility]) 11/24/2024 Chronic venous insufficiency 11/24/2024 COVID 10/17/2023 Elevated serum immunoglobulin free light chain level 11/24/2024 Essential hypertension ([facility]) 10/17/2023 Flash pulmonary edema ([facility]) 11/24/2024 Former smoker 10/17/2023 OMAR (generalized anxiety disorder) ([facility]) 11/24/2024 Gastroesophageal reflux disease with esophagitis without hemorrhage 11/24/2024 Heart failure 11/24/2024 Palpitations 01/12/2025 Resolved Ambulatory Problems Diagnosis Date Noted No Resolved Ambulatory Problems Past Medical History: Diagnosis Date Arthritis Cataract Congestive heart failure (CHF) ([facility]) Coronary artery disease ([facility]) GERD (gastroesophageal reflux disease) Hypercholesteremia ([facility]) Hypertension ([facility]) Peripheral neuropathy Past Surgical History: [...] then annually if stable documented in this encounterBarnes-Jewish [facility] [id number] Miscellaneous Notes* Telephone Encounter - Loree Rosado MA - 07/06/2025 9:31 AM EDT Patient coming Sunday07/08/25 for follow up labs. Please add lab orders. Thanks. Loree Rosado MA documented [facility] Evaluation note* Diagnosis Onset Date Resolution Status Admit Date Chronic kidney disease acuteMarch 2024 9:51amNocturnal leg crampsacuteMarch 2024 9:51am Right knee painacuteMarch 2024 9:51amASHD (arteriosclerotic heart disease) acuteMay 2024 1:04pmChronic bronchitisacuteMay 2024 1:04pmChronic heart failure with preserved ejection fraction (HFpEF)acuteMay 2024 1:04pm Chronic venous insufficiencyacuteMay 2024 1:04pmSubclinical hypothyroidism acuteMay 2024 1:04pmASHD (arteriosclerotic heart disease)acuteMay 2024 11:21amChronic bronchitisacuteMay 2024 11:21amChronic heart failure with preserved ejection fraction (HFpEF)acuteMay 2024 11:21amChronic kidney diseaseacuteMay 2024 11:21amChronic venous insufficiencyacuteMay 2024 11:21amEssential hypertensionacuteMay 2024 11:21amSubclinical hypothyroidismacuteMay 2024 11:21amThyroid noduleacuteMay 2024 11:21am [facility] Work Phone: 1(791) 279-304603-17-2025 Evaluation + Plan note* Assessment & Plan Note - CINTIA Gallego - 01/12/2025 3:48 PM EDTAssociated Problem(s): Cardiac and Vasculature January 2024 TTE LVEF greater than 55% Biatrial enlargement mild [facility] Work Phone: [phone] 843-882503-17-2025 Miscellaneous Notes* Assessment & Plan Note - [...] heart disease) March 09, 2023 Mid/proximal RCA PCI/[place] 4x15mm & 4x18mm Proximal diagonal PCI/[place] 2.5 x 18 mm LAD 10% Circumflex [...] hypertension [employer] in office [facility] Work Phone: 1([phone]) 592-799803-17-2025 Evaluation + Plan note* Assessment & Plan Note - CINTIA Gallego - 01/12/2025 3:47 PM EDTAssociated Problem(s): Hyperlipidemia High intensity statin January 2024 HDL 42, cholesterol 158 [facility] Work Phone: 1([phone]) 448-763403-17-2025 Evaluation + Plan note* Assessment & Plan Note - CINTIA Gallego - 01/12/2025 3:47 PM EDTAssociated Problem(s): ASHD (arteriosclerotic heart disease) March 09, 2023 Mid/proximal RCA PCI/[place] 4x15mm & 4x18mm Proximal diagonal PCI/[place] 2.5 x 18 mm LAD 10% Circumflex normal LVEF 65% February 2024 MPI ischemia, EF 88% Current daily activity at 4 METS without concerning symptoms [facility] Work Phone: [phone] Evaluation + Plan note* Assessment & Plan Note - CINTIA Gallego - 01/12/2025 3:46 PM EDTAssociated Problem(s): Palpitations Reports fairly daily episodes of hearing my heart thumping going into my ears No prior documented A-fib or arrhythmia. Was taken off of carvedilol January 2024 hospitalization due to bradycardia [facility] Work Phone: [phone] Evaluation + Plan note* Assessment & Plan Note - CINTIA Gallego - 01/12/2025 3:46 PM EDTAssociated Problem(s): Essential hypertension [employer] in office [facility] Work Phone: [phone] 142-416303-17-2025 History of Present illness Narrative* CINTIA Gallego [...] RCA PCI/[place] 4x15mm & 4x18mm Proximal diagonal PCI/[place] 2.5 x 18 mm LAD 10% Circumflex [...] Echo (RODGERS, diastolic dysfunction) Holden Rosado MSN, 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-HOME MANAGEMENT SUPERVISOR, PMHNP-[facility] [place], [place] Please excuse any errors in grammar or translation related to this dictation. Voice recognition software was utilized to prepare this document. documented in this [facility] Work Phone: 1([phone]) 806-978703-17-2025 Instructions* Patient Instructions* CINTIA Gallego - 01/12/2025 [...] Echo (RODGERS, diastolic dysfunction) documented in this [facility] Work Phone: 1([phone]) 819-419201-28-2025 History of Present illness Narrative* Reyna Esparza MD - 11/25/2024 2:00 PM EST Subjective Patient ID: Lashaun Joaquin is a 84 y.o. female who presents for Thyroid Nodule Pt reports she had a thyroid US after being found to be mildly hypothyroid. US shows an 11mm mixed thyroid nodule. FNA performed that was [place] 1. No family H/O thyroid CA. No radiation exposure. Review of Systems All other systems reviewed and are negative. No family history on file. Active Ambulatory Problems Diagnosis Date Noted Dry eyes 04/28/2024 Epiretinal membrane (ERM) of left eye 04/28/2024 Blepharitis of upper and lower eyelids of both eyes 04/28/2024 Abnormal cardiovascular stress test 11/24/2024 Adrenal nodule ([facility]) 11/24/2024 Anemia 11/24/2024 ASHD (arteriosclerotic heart disease) (CMS/HCC) 10/17/2023 Atrophic vaginitis 11/24/2024 BMI 33.0-33.9,adult 03/05/2024 Cervical spondylosis with radiculopathy 11/24/2024 Chronic bronchitis (CMS/HCC) 11/24/2024 Chronic heart failure with preserved ejection fraction (HFpEF) ([facility]) 11/24/2024 Chronic obstructive pulmonary disease with (acute) exacerbation (CMS/HCC) 11/24/2024 Chronic venous insufficiency 11/24/2024 COVID 10/17/2023 Elevated serum immunoglobulin free light chain level 11/24/2024 Essential hypertension (CMS/HCC) 10/17/2023 Flash pulmonary edema (CMS/HCC) 11/24/2024 Former smoker 10/17/2023 OMAR (generalized anxiety disorder) ([facility]) 11/24/2024 Gastroesophageal reflux disease with esophagitis without hemorrhage 11/24/2024 Heart failure (CMS/HCC) 11/24/2024 Resolved Ambulatory Problems Diagnosis Date Noted [...] starting in late December documented in this encounterBarnes-Jewish [facility] [id number] Chief complaint+Reason for visit Narrative* Chief Complaint [...] 10:20am Thyroid nodule December 16, 2024 10:20am [facility] Work Phone: [phone] 465-869001-20-2025 Chief complaint+Reason for visit Narrative * Chief [...] knee pain January 22, 2025 9:5 1am [facility] Work Phone: 1([phone]) 768-497001-20-2025 Evaluation note* Diagnosis Onset Date Resolution Status Admit Date Thyroid nodule acuteJanuary 2024 9:45amASHD (arteriosclerotic heart disease)acuteFebruary 2024 10:20amChronic bronchitisacuteFebruary 2024 10:20amChronic heart failure with preserved ejection fraction (HFpEF)acuteFebruary 2024 10:20amChronic kidney diseaseacuteFebruary 2024 10:20amChronic venous insufficiencyacuteFebruary 2024 10:20amEssential hypertensionacuteFebruary 2024 10:20amSubclinical hypothyroidismacuteFebruary 2024 10:20am Thyroid noduleacuteFebruary 2024 10:20am [facility] Work Phone: 1([phone]) 327-264801-20-2025 Evaluation note* Diagnosis Onset Date Resolution Status Admit Date Thyroid nodule acuteJanuary 2024 9:45amASHD (arteriosclerotic heart disease)acuteFebruary 2024 10:20amChronic bronchitisacuteFebruary 2024 10:20amChronic heart failure with preserved ejection fraction (HFpEF)acuteFebruary 2024 10:20amChronic kidney diseaseacuteFebruary 2024 10:20amChronic venous insufficiencyacuteFebruary 2024 10:20amEssential hypertensionacuteFebruary 2024 10:20amSubclinical hypothyroidismacuteFebruary 2024 10:20am Thyroid noduleacuteFebruary 2024 10:20amChronic kidney diseaseacuteMarch 2024 9:51amNocturnal leg crampsacuteMarch 2024 9:51amRight knee pain acuteMarch 2024 9:51am [facility] Work Phone: 1(730) 329-509312-11-2024 History of Present illness Narrative* Edinson Perry, [...] diastolic heart failure. She was hospitalized at [facility] we were not involved in this. Her medications were changed, cluck carvedilol was discontinued and Entresto was initiated. She has supranormal left ventricular function with ejection fraction of 88% and normal perfusion scan February 2023. She did undergo primary PCI proximal RCA and diagonal branch in February 2023 for subsequentnon-ST elevation [place] event with preserved LV function. She is [...] exam, discussion and plan. documented in this [facility] Work Phone: 1([phone]) 868-851812-11-2024 Instructions* Patient Instructions* Racquel Olivera LPN - [...] Provided instructions on exercise. documented in this [facility] Work Phone: 1(283) 518-342411-14-2024 Evaluation note* Diagnosis Onset Date Resolution Status Admit Date Anemia acuteNovember 2023 10:16amASHD (arteriosclerotic heart disease)acute September 11, 2024 10:16amChronic bronchitisacuteNovember 2023 10:16am Chronic heart failure with preserved ejection fraction (HFpEF)acuteNov2023 10:16amChronic venous insufficiencyacuteNovember 2023 10:16am Essential hypertensionacuteNovember 2023 10:16amGAD (generalized anxiety disorder)acuteSeptember 11, 2024 10:16amHypercholesterolemiaacuteNovember 2023 10:16amSubclinical hypothyroidismacuteNovember 2023 10:16am [facility] Work Phone: 1([phone] 231-811511-14-2024 Evaluation note* Diagnosis Onset Date Resolution Status Admit Date Anemia acuteNovember 2023 10:16amASHD (arteriosclerotic heart disease)acute September 11, 2024 10:16amChronic bronchitisacuteNovember 2023 10:16am Chronic heart failure with preserved ejection fraction (HFpEF)acuteSeptember 11, 2024 10:16amChronic venous insufficiencyacuteNovember 2023 10:16am Essential hypertensionacuteNovember 2023 10:16amGAD (generalized anxiety disorder)acuteSeptember 11, 2024 10:16amHypercholesterolemiaacuteNovember 2023 10:16amSubclinical hypothyroidismacuteNovember 2023 10:16amThyroid noduleacuteJanuary 2024 9:45am [facility] Work Phone: 1([phone]) 272-587306-25-2024 Evaluation + Plan note* Assessment & Plan Note - CINTIA Gallego - 04/22/2024 11:58 AM EDTAssociated Problem(s): BMI 32.0-32.9,adult Reviewed the merits of healthy lifestyle choices on overall cardiovascular health. [facility] Work Phone: [phone]) 430-396606-25-2024 Evaluation + Plan note* Assessment & Plan Note - CINTIA Gallego - 04/22/2024 11:58 AM EDTAssociated Problem(s): Hyperlipidemia High intensity statin January 2024 HDL 42, cholesterol 158 [facility] Work Phone: [phone] 265-131606-25-2024 Evaluation + Plan note* Assessment & Plan Note - CINTIA Gallego - 04/22/2024 11:58 AM EDTAssociated Problem(s): Essential hypertension Optimal in the office [facility] Work Phone: [phone] 479-737806-25-2024 Evaluation + Plan note* Assessment & Plan Note - CINTIA Gallego - 04/22/2024 11:58 AM EDTAssociated Problem(s): ASHD (arteriosclerotic heart disease) March 09, 2023 Mid/proximal RCA PCI/[place] 4x15mm & 4x18mm Proximal diagonal PCI/[place] 2.5 x 18 mm LAD 10% Circumflex normal LVEF 65% February 2024 MPI ischemia, EF 88% Current daily activity at 4 METS without concerning symptoms [facility] Work Phone: [phone] 163-622406-25-2024 Miscellaneous Notes* Assessment & Plan Note - [...] heart disease) March 09, 2023 Mid/proximal RCA PCI/[place] 4x15mm & 4x18mm Proximal diagonal PCI/[place] 2.5 x 18 mm LAD 10% Circumflex normal LVEF 65% February 2024 MPI ischemia, EF 88% Current daily activity at 4 METS without concerning symptoms documented in this [facility] Work Phone: 1([phone]) 470-538606-24-2024 History of Present illness Narrative* CINTIA Gallego [...] Dr. Perry 6 months Holden Rosado MSN, 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-HOME MANAGEMENT SUPERVISOR, PMHNP-[facility] Please excuse any errors in grammar or translation related to this dictation. Voice recognition software was utilized to prepare this document. documented in this encounterUnSum[facility] Work Phone: [phone]) [phone] Instructions* Patient Instructions* CINTIA Gallego - 04/21/2024 [...] Dr. Perry 6 months documented in this encounterUnSum[facility] Work Phone: [phone] Evaluation + Plan note* Assessment & Plan Note - CINTIA Gallego - 03/06/2024 10:42 AM EDTAssociated Problem(s): BMI 32.0-32.9,adult Reviewed the merits of healthy lifestyle choices on overall cardiovascular health. [facility] Work Phone: [phone]) 294-719805-09-2024 Evaluation + Plan note* Assessment & Plan Note - CINTIA Gallego - 03/06/2024 10:42 AM EDTAssociated Problem(s): Hyperlipidemia High intensity statin January 2024 HDL 42, cholesterol 158 [facility] Work Phone: [phone] 152-576905-09-2024 Miscellaneous Notes* Assessment & Plan Note - [...] RCA PCI/[place] 4x15mm & 4x18mm Proximal diagonal PCI/[place] 2.5 x 18 mm LAD 10% Circumflex normal LVEF 65% documented in this encounterUnSumma [facility] Work Phone: [phone] 426-471205-09-2024 Evaluation + Plan note* Assessment & Plan Note - CINTIA Gallego - 03/06/2024 10:41 AM EDTAssociated Problem(s): Essential hypertension Optimal in office [facility] Work Phone: [phone] 962-894505-09-2024 Evaluation + Plan note* Assessment & Plan Note - CINTIA Gallego - 03/06/2024 10:41 AM EDTAssociated Problem(s): ASHD (arteriosclerotic heart disease) March 09, 2023 Mid/proximal RCA PCI/[place] 4x15mm & 4x18mm Proximal diagonal PCI/[place] 2.5 x 18 mm LAD 10% Circumflex normal LVEF 65% [facility] Work Phone: 1([phone] 404-856505-08-2024 History of Present illness Narrative* CINTIA Gallego - 03/05/2024 11:30 AM EDT Chief Complaint I am just not feeling good Reason for Visit Patient presents to the office today for outpatient follow-up for hospital follow-up. Last evaluated in clinic by Dr. Perry September 2023. January 2024: Hospitalized at [facility] due to accelerated hypertension and bradycardia. She was seen by [facility]. Inpatient echo showed EF greater than [...] heart disease) March 09, 2023 Mid/proximal RCA PCI/[place] 4x15mm & 4x18mm Proximal diagonal PCI/[place] 2.5 [...] contact the office if new symptoms arise. TRUCK SAFETY INSPECTOR after testing Holden Rosado MSN, 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-HOME MANAGEMENT SUPERVISOR, PMHNP-[facility] Please excuse any errors in grammar or translation related to this dictation. Voice recognition software was utilized to prepare this document. documented in this encounterFort [facility] Hospital Work Phone: [phone]) 318-646005-08-2024 Instructions* Patient Instructions* CINTIA Gallego - 03/05/2024 [...] contact the office if new symptoms arise. TRUCK SAFETY INSPECTOR after testing documented in this encounterFort [facility] Hospital Work Phone: 1([phone]) 709-602001-30-2024 Evaluation note* Encounter Date Diagnosis Assessment Notes Treatment Notes Treatment Clinical Notes Oct, Primary insomnia (ICD-10 - F51.0 1) [employer] Other 01-05-2024 Evaluation note* Encounter Date Diagnosis Assessment Notes Treatment Notes Treatment Clinical Notes Oct, ASHD (arteriosclerotic heart dis ease) (ICD-10 - I25.10) This patient is stable without activity related CP, dyspnea or lightheadedness. They are instructedto continue exercise and AHA diet plan. Continue secondary prevention measures. 05 Marlon, 2024Chronic diastolic heart failure (ICD-10 - I50.32)Echocardiogram: 2022 - LVEF 65% w/ diastolic dysfunction [...] or lightheadedness. Reviewed GDMT w/ beta blockers, BRAD/ARB/ARNI,MRA and SGLT-2 Oct,rimary hypertension (ICD-10 - I10)This patient is instructed to consume a healthy, low-fat, low-salt diet. They are also encouraged to continue exercise to achieve/maintain a normal BMI. Oct,Simple chronic bronchitis (ICD-10 - J41.0)Mucolytics as needed. EDEL as needed for cough, SOB and wheezing. No ER visits for AE UTD w/ vaccines Oct,Elevated cholesterol (ICD-10 - E78.00)Instructed on diet and exercise with continued statin therapy.Discussed the beneficial effects of lo wering cholesterol in reducing the risk for cerebrovascular and cardiovascular disease. Oct,ulmonary hypertension (ICD-10 - I27.20)Continue to monitor fluid status. Daily weights w/ additional doses of diuretic as needed. Checking BMP routinely. Oct,estless leg syndrome (ICD-10 - G25.81)Improved w/ Gabapentin. Gentle stretching exercises prior to bedtime Support stockings during the daytime Oct,aresthesias (ICD-10 - R20.2)Symptoms tolerable w/ Gabapentin. No additional treatment necessary Keep active, daily walks, stretching Oct,hronic venous insufficiency (ICD-10 - I87.2)Avoid salt and elevate lower extremities, support stockings, inspect legs and feet daily for blisters and ulcerations. Oct,Gastroesophageal reflux disease with esophagitis without hemorrhage (ICD-10 - K21.00)Avoid lying flat after eating. Avoid eating 2 hours prior to bedtime. Smaller, frequent meals may be better tolerated.Weight loss if overweight.PPI with any heartburn.Monitor for dysphagia. Oct,Nicotine dependence, cigarettes, in remission (ICD-10 - F17.211) Continue abstinence [employer] Other 12-05-2023 Evaluation note* Encounter Date Diagnosis Assessment Notes Treatment Notes Treatment Clinical Notes Sep, Chronic obstructive pulmonary disease with (acute) exacerbation (ICD-10 - J44.1) Stopped Prednisone due to ADR. Instructed to use EDEL 2-3x daily - can limit to 1 puff to avoid side effects Push fluid, increase activity, cough/deep breathing exercises. Sep,Swollen throat (ICD-10 - R22.1)Resolved w/ Benadryl, Prednisone and stopping Zpak. Discussed symptoms, vague but claims swelling in oral mucosa, lips and eyes. Placed in allergy list Sep,dverse reaction to antibiotic (ICD-10 - T36.95XA) Sep,ost COVID-19 condition, unspecified (ICD-10 - U09.9)Persistent cough from COPD and COVID pneumonia. Reassured that will gradually improve Instructed to use EDEL daily. Sep,hronic cough (ICD-10 - R05.3) Sep,hronic HFrEF (heart failure with reduced ejection fraction) (ICD-10 - I50.22)Instructed on low salt diet, exercise and daily weights. Instructed to notify office for any unexpected weight gain > 3lbs and/or increased dyspnea, difficulty breathing during sleep, worsening lower extremity swelling, chest pain or lightheadedness. Reviewed GDMT w/ beta blockers, BRAD/ARB/ARNI,MRA and SGLT-2 Daily weights Using diuretic bid to maintain steady weight Denies orthopnea, PND or increasing edema Sep,SHD (arteriosclerotic heart disease) (ICD-10 - I25.10)This patient is stable without activity related CP, dyspnea or lightheadedness. They are instructedto continue exercise and AHA diet plan. Continue secondary prevention measures. Sep,Restless leg syndrome (ICD-10 - G25.81)Last night w/ increased symptoms. No change in medications, continue Gabapentin. Sep,hronic venous insufficiency (ICD-10 - I87.2)Avoid salt and elevate lower extremities, support stockings, inspect legs and feet daily for blisters and ulcerations. [employer] Other 11-29-2023 Evaluation note* Encounter Date Diagnosis Assessment Notes Treatment Notes Treatment Clinical Notes Aug, Chronic venous insufficiency (IC D-10 - I87.2) [employer] Other 11-24-2023 Evaluation note* Encounter Date Diagnosis Assessment Notes Treatment Notes Treatment Clinical Notes Aug, Subacute cough (ICD-10 - R05.2) Aug,yspnea on exertion (ICD-10 - R06.09) [employer] Other 11-20-2023 Evaluation note* Encounter Date Diagnosis Assessment Notes Treatment Notes Treatment Clinical Notes Aug, Chronic venous insufficiency (IC D-10 - I87.2) [employer] Other 11-16-2023 Evaluation note* Encounter Date Diagnosis Assessment Notes Treatment Notes Treatment Clinical Notes Aug, Chronic venous insufficiency (IC D-10 - I87.2) [employer] Other 11-14-2023 Evaluation note* Encounter Date Diagnosis Assessment Notes Treatment Notes Treatment Clinical Notes Aug, Acute bronchitis due to other sp ecified organisms (ICD-10 - J20.8) Instructed to use Robitussin or Mucinex for cough, saline or Flonase NS for congestion, Tylenol forpain and fever. Aug,hronic obstructive pulmonary disease with (acute) exacerbation (ICD-10 - J44.1)Begin using EDEL as needed to mobilize secretions. [employer] [facility] Other 10-19-2023 Evaluation note* Encounter Date Diagnosis Assessment Notes Treatment Notes Treatment Clinical Notes Jul, Aphthous ulcer (ICD-10 - K12.0) [employer] [facility] Other 09-20-2023 Evaluation note* Encounter Date Diagnosis Assessment Notes Treatment Notes Treatment Clinical Notes Jun, Dysuria (ICD-10 - R30.0) [employer] [facility] Other 09-19-2023 Evaluation note* Encounter Date Diagnosis Assessment Notes Treatment Notes Treatment Clinical Notes Jun, Dysuria (ICD-10 - R30.0) [facility] Other 08-28-2023 Evaluation note* Encounter Date Diagnosis Assessment Notes Treatment Notes Treatment Clinical Notes May, Chronic venous insufficiency (IC D-10 - I87.2) [employer] [facility] Other 08-24-2023 Evaluation note* Encounter Date Diagnosis Assessment Notes Treatment Notes Treatment Clinical Notes May, Primary insomnia (ICD-10 - F51.0 1) [employer] [facility] Other 08-21-2023 Evaluation note* Encounter Date Diagnosis Assessment Notes Treatment Notes Treatment Clinical Notes May, Diastolic hypertension (ICD-10 - I10) [employer] [facility] Other 08-18-2023 Evaluation note* Encounter Date Diagnosis Assessment Notes Treatment Notes Treatment Clinical Notes May, Primary hypertension (ICD-10 - I 10) [employer] Other 08-18-2023 Evaluation note* Encounter Date Diagnosis Assessment Notes Treatment Notes Treatment Clinical Notes May, Diastolic hypertension (ICD-10 - I10) [employer] Other 08-11-2023 Evaluation note* Encounter Date Diagnosis Assessment Notes Treatment Notes Treatment Clinical Notes May, ASHD (arteriosclerotic heart dis ease) (ICD-10 - I25.10) This patient is stable without activity related CP, dyspnea or lightheadedness. They are instructedto continue exercise and AHA diet plan. May,hronic HFrEF (heart failure with reduced ejection fraction) (ICD-10 - I50.22)Instructed on low salt diet, exercise and daily weights. Instructed to notify office for any unexpected weight gain > 3lbs and/or increased dyspnea, difficulty breathing during sleep, worsening lower extremity swelling, chest pain or lightheadedness. Reviewed GDMT w/ beta blockers, BRAD/ARB/ARNI,MRA and SGLT-2 Stressed importance to daily weights. Dry weight is 198 at home. - wt > 200 requires additional diuretic later that same day May,rimary hypertension (ICD-10 - I10)This patient is instructed to consume a healthy, low-fat, low-salt diet. They are also encouraged to continue exercise to achieve/maintain a normal BMI. May,hronic venous insufficiency (ICD-10 - I87.2)Avoid salt and elevate lower extremities, support stockings, inspect legs and feet daily for blisters and ulcerations. [employer] Other 08-09-2023 Miscellaneous Notes* Telephone Encounter - [...] can further discuss then. [facility] of Present illness Narrative* [...] shortness of breath and was hospitalized at [facility] and treated for suspected pneumonia. Apparently it was later felt she had heart disease, and cardiac catheterization revealed severe coronary artery disease. She dumont bsequently underwent stent placement at [facility]. Apparently her shortness of breath persisted, and [...] shortness of breath and was hospitalized at [facility] treated for suspected pneumonia. Apparently it was later felt she had heart disease, and cardiac catheterization revealed severe coronary artery disease. She subsequently underwent stent placement at [facility]. April 2023 she developed severe shortness of breath and was hospitalized at [facility] 05/17/2023with CHF. She improved with diuresis but [...] MD CC: Dr. Perry [facility] Evaluation note* Encounter Date Diagnosis Assessment Notes Treatment Notes Treatment Clinical Notes Apr, ASHD (arteriosclerotic heart dis ease) (ICD-10 - I25.10) This patient is stable without activity related CP, dyspnea or lightheadedness. They are instructedto continue exercise and AHA diet plan. Apr,cute on chronic HFrEF (heart failure with reduced ejection fraction) (ICD-10 - I50.23)Maintain optimal control of BP and fluid status - daily weights - decrease BB to 3.125mg bid - increase BRAD to 150 bid Counseled on cause and treatment of CHF Systolic/Diastolic dysfunction contributing Instructed to increase Lasix to qd w/ any weight gain Apr,rimary hypertension (ICD-10 - I10)This patient is instructed to consume a healthy, low-fat, low-salt diet. They are also encouraged to continue exercise to achieve/maintain a normal BMI. Apr,Simple chronic bronchitis (ICD-10 - J41.0)Instructed to use LABA/ICS bid and hold EDEL. Wheezing at night could be cardiac asthma, difficult to determine. Mucinex as needed. Apr,hronic venous insufficiency (ICD-10 - I87.2)Avoid salt and elevate lower extremities, support stockings, inspect legs and feet daily for blisters and ulcerations. Apr,Other obesity due to excess calories (ICD-10 - E66.09)This patient has been instructed on a low-fat, high-fiber diet. They are instructed to reduce calories, portion sizes and snacks. It is recommended that they exercise for 30 minutes, 3-5 times weekly. Apr,ody mass index [BMI] 32.0-32.9, adult (ICD-10 - Z68.32) Apr,Nicotine dependence, cigarettes, in remission (ICD-10 - F17.211) [employer] [facility] Other 07-21-2023 Discharge summary Author Lj Ryan [facility] May 18, 2023 11:44amNote Date/TimeJuly 2022 11:[place] [address] Discharge Summary Signed Patient: Lashaun Joaquin MR#: [id number] : 1940 Acct:[id number] Age/Sex: 82 / F Adm Date: 3 Loc: 3T Room: [address] [place] [address]: Lj Ryan DO Copies to: [...] she had no lower extreme edema and shewas saturating well on room air. I did [...] explained this method to her and she und erstood. Time Spent with Patient Time spent providing/coordinating [...] Sodium 142, Potassium 4.0, Chloride 103, Carbon Aeqchdh39.5, Anion Gap 12.5, BUN 21, Creatinine 1.37 H, Est GFR (CKD-EPI) 39.034, Glucose 94, Calcium 8.9,Phosphorus 5.3, Magnesium 2.1 05/18/23 05:58: Corrected WBC 6.0, Uncorrected WBC Count 6.0, RBC 3.21 L, Hgb 9.7 L, Hct 28.2 L, MCV 87.7, MCH 30.2, MCHC 34.4, RDW 14.1, Plt Count 314, MPV 7.8, Neut % (Auto) 73.6, Lymph % (Auto) 15.1, Kinney % (Auto) 8.7, Eos % (Auto) 1.9, Baso % (Auto) 0.7, Nucleat RBC Rel Count 0.1, Neut # (Auto)4.4, Lymph # (Auto) 0.9 L, Kinney # (Auto) 0.5, Eos # (Auto) 0.1, [...] prescribed, your goal weight is 195 pounds. Ifyou notice your weight trending up and gets [...] signed by Lj Ryan DO> 05/18/23 1144 [facility] Work Phone: [phone] History and physical note Author Lj Ryan [facility] May 17, 2023 3:56pmNote Date/TimeJuly 2022 3:49pm[place] [address] Hospitalist H&P Signed Patient: Lsahaun Joaquin MR#: [id number] : 1940 Acct:[id number] Age/Sex: 82 / F Adm Date: 3 Loc: Room: [address] [place] [address] Type: ADM INOo Attending Dr: Lj Ryan [...] blood pressure. This reportedly started last night, thepatient was laying in bed at home from the sleep and she suddenly felt she was very short ofbreath,she got out of bed and had trouble catching her breath even when she wasawake. This never happened to her before, she does have a history of fluid retention and is on Lasix 20 mg every other day. Sheand her daughter both watch her weight closely, and states that she has been over 200 pounds the last couple of days and this is above her dry weight, the daughter even mentions a 5 pound weight gainlast couple of days. She denies any chest [...] was elevated at 450 and she was thoughtto be hypertensive, 216/75 initially, she did receive IV hydralazine and a nitro patch and her blood pressure did lower to 186/78. Her baseline oxygenation is room air. Review of Systems Review of Systems All other systems reviewed & are negative unless noted below or in HPI [facility] Medical History (Updated 05/17/23 @ 15:50 [...] % (Auto) 9.3 % (.) 05/17/23 10:25 Kinney % (Auto) 5.5 % (.) 05/17/23 10:25 Eos % (Auto) 0.5 % (.) 05/17/23 10:25 Baso % (Auto) 0.5 % (.) 05/17/23 10:25 Nucleat RBC Rel Count 0.0 /100 WBC (0-0.5) 05/17/23 10:25 Neut # (Auto) 8.6 x10E3/uL (1.8-7.7) H 05/17/23 10:25 Lymph # (Auto) 1.0 x10E3/uL (1.00-4.8) 05/17/23 10:25 Kinney # (Auto) 0.6 x10E3/uL (0.0-0.8) 05/17/23 10:25 [...] of breath, she required diuresis overnight and titrationof oxygen. At time my assessment after the ER physiciansaw her she is already breathing much betteron 2 L nasal cannula, there is veryfaint wheezing heard on auscultation. I suspect her to improve dr astically overnight with further diuresis and she will [...] 1 Documented By: Lj Ryan DO 05/17/23 8639 Signed By: <Electronically signed by Lj Ryan DO> 05/17/23 0465 [facility] Work Phone: [phone] Evaluation note* Encounter Date Diagnosis Assessment Notes Treatment Notes Treatment Clinical Notes Apr, Shortness of breath (ICD-10 - R0 6.02) Multifactorial: - poor air quality - COPD secondary to remote tobacco dependency - Asthma - GERD - Brilinta Discussed treatment of each: - switched Brilinta to Plavix - initiated LABA/ICS w/ improvement - compliant w/ PPI - instructed to avoid eating/drinking prior to HS - weight loss Apr,SHD (arteriosclerotic heart disease) (ICD-10 - I25.10)This patient is stable without activity related CP, dyspnea or lightheadedness. They are instructedto continue exercise and AHA diet plan. Apr,Simple chronic bronchitis (ICD-10 - J41.0)Continue abstinence from tobacco Avoid toxins, smog and allergens Initiated LABA/ICS EDEL as needed PFT? CT and CXR clear w/ stable small nodule Apr,rimary hypertension (ICD-10 - I10)This patient is instructed to consume a healthy, low-fat, low-salt diet. They are also encouraged to continue exercise to achieve/maintain a normal BMI. Patient is instructed on home BP measurements: - rest for 5 minutes w/o talking- positioned w/ feeton floor and arm supported- average best 2/3 readings w/ goal < 135-85 Apr,hronic venous insufficiency (ICD-10 - I87.2)Avoid salt and elevate lower extremities, support stockings, inspect legs and feet daily for blisters and ulcerations. Apr,AD (generalized anxiety disorder) (ICD-10 - F41.1)Healthy diet, exercise and keep active Apr,astroesophageal reflux disease with esophagitis without hemorrhage (ICD-10 - K21.00)Diet instructions: Smaller portions, avoid eating and laying flat, avoid eating or drinking prior to bedtime. Weight loss. Apr,Nicotine dependence, cigarettes, in remission (ICD-10 - F17.211) Continue abstinence Apr,Other obesity due to excess calories (ICD-10 - E66.09)This patient has been instructed on a low-fat, high-fiber diet. They are instructed to reduce calories, portion sizes and snacks. It is recommended that they exercise for 30 minutes, 3-5 times weekly. Apr,ody mass index [BMI] 33.0-33.9, adult (ICD-10 - Z68.33) [employer] [facility] Other 07-12-2023 Evaluation note* Encounter Date Diagnosis Assessment Notes Treatment Notes Treatment Clinical Notes Apr, Shortness of breath (ICD-10 - R0 6.02) Multifactorial: - COPD w/ acute exacerbation - start LABA/LAMA/ICS q 12 hours - EDEL as needed - CXR and CT completed - PFT in future Recheck in week Defer change in medication to Cardiology Apr,Simple chronic bronchitis (ICD-10 - J41.0)Continue EDEL as needed for cough and wheezing Start triple therapy w/ Breztri for next week. Recheck in week to determine response PFT? Apr,SHD (arteriosclerotic heart disease) (ICD-10 - I25.10)This patient is stable without activity related CP, dyspnea or lightheadedness. They are instructedto continue exercise and AHA diet plan. Apr,rimary hypertension (ICD-10 - I10)This patient is instructed to consume a healthy, low-fat, low-salt diet. They are also encouraged to continue exercise to achieve/maintain a normal BMI. Apr,hronic venous insufficiency (ICD-10 - I87.2)Avoid salt and elevate lower extremities, support stockings, inspect legs and feet daily for blisters and ulcerations. Apr,Other obesity due to excess calories (ICD-10 - E66.09)This patient has been instructed on a low-fat, high-fiber diet. They are instructed to reduce calories, portion sizes and snacks. It is recommended that they exercise for 30 minutes, 3-5 times weekly. Apr,ody mass index [BMI] 32.0-32.9, adult (ICD-10 - Z68.32) Apr,Nicotine dependence, cigarettes, in remission (ICD-10 - F17.211) [facility] Other 06-29-2023 Evaluation note* Encounter Date Diagnosis Assessment Notes Treatment Notes Treatment Clinical Notes Mar, Paronychia of finger of right gagnon nd (ICD-10 - L03.011) [employer] Other 06-29-2023 Evaluation note* Encounter Date Diagnosis Assessment Notes Treatment Notes Treatment Clinical Notes Mar, ASHD (arteriosclerotic heart dis ease) (ICD-10 - I25.10) This patient is stable without activity related CP, dyspnea or lightheadedness. They are instructedto continue exercise and AHA diet plan. Mar,rimary hypertension (ICD-10 - I10)This patient is instructed to consume a healthy, low-fat, low-salt diet. They are also encouraged to continue exercise to achieve/maintain a normal BMI. Mar,hronic bronchitis, simple (ICD-10 - J41.0)Continue Mucinex or Robitussin. EDEL 2-3x daily, may need HHN Cough and deep breathing exercises CXR clear PFT if not improvement Mar,aronychia of finger of right hand (ICD-10 - L03.011)Soak in warm water Steroid crm along nail bed Initiate antibiotics Mar,hronic venous insufficiency (ICD-10 - I87.2)Avoid salt and elevate lower extremities, support stockings, inspect legs and feet daily for blisters and ulcerations. Mar,Other obesity due to excess calories (ICD-10 - E66.09)This patient has been instructed on a low-fat, high-fiber diet. They are instructed to reduce calories, portion sizes and snacks. It is recommended that they exercise for 30 minutes, 3-5 times weekly. Mar,ody mass index [BMI] 32.0-32.9, adult (ICD-10 - Z68.32) Mar,Hyperlipidemia type II (ICD-10 - E78.01) Mar,Restless leg syndrome (ICD-10 - G25.81)Hydrate and healthy diet. Mar,aresthesias (ICD-10 - R20.2) [facility] Other 06-21-2023 Evaluation note* Encounter Date Diagnosis Assessment Notes Treatment Notes Treatment Clinical Notes Mar, Shortness of breath (ICD-10 - R0 6.02) Reviewed etiology of RODGERS: - CHF - COPD exacerbation - respiratory infection - anxiety CXR and labs to exclude above differential Mar,SHD (arteriosclerotic heart disease) (ICD-10 - I25.10)s/p PCI/stent RCA and diagonal br. Denies CP, palpitations or lightheadedness This patient is stable without activity related CP, dyspnea or lightheadedness. They are instructedto continue exercise and AHA diet plan. Mar,rimary hypertension (ICD-10 - I10)This patient is instructed to consume a healthy, low-fat, low-salt diet. They are also encouraged to continue exercise to achieve/maintain a normal BMI. Mar,hronic bronchitis, simple (ICD-10 - J41.0)Quit smoking > 10 years ago No chronic use of inhalers. Mucinex for clearing of secretions, wheezing. Consider EDEL Mar,nemia, unspecified type (ICD-10 - D64.9)Chronic due to inflammation. f/u Hematology Mar,Sinus bradycardia (ICD-10 - R00.1)Presently on lowest dose of Coreg. Continue for now. Mar,dverse effect of drug, initial encounter (ICD-10 - T50.905A)Known ADR of Brilinta is SOB. Superior in prevening restenosis post PCI/stent placement. Continue for 12 months [facility] Other 06-21-2023 Evaluation note* Encounter Date Diagnosis Assessment Notes Treatment Notes Treatment Clinical Notes Mar, Chronic bronchitis, simple (ICD- 10 - J41.0) [facility] Other 05-30-2023 Evaluation note* Encounter Date Diagnosis Assessment Notes Treatment Notes Treatment Clinical Notes February, Paresthesias (ICD-10 - R20.2) [employer] [facility] Other 05-18-2023 Evaluation note* Encounter Date Diagnosis Assessment Notes Treatment Notes Treatment Clinical Notes February, ASHD (arteriosclerotic heart dis ease) (ICD-10 - I25.10) This patient is stable without activity related CP, dyspnea or lightheadedness. They are instructedto continue exercise and AHA diet plan. February,rimary hypertension (ICD-10 - I10)This patient is instructed to consume a healthy, low-fat, low-salt diet. They are also encouraged to continue exercise to achieve/maintain a normal BMI. February,Hyperlipidemia type II (ICD-10 - E78.01)Instructed on diet and exercise with continued statin therapy.Discussed the beneficial effects of lo wering cholesterol in reducing the risk for cerebrovascular and cardiovascular disease. February,Nicotine dependence, cigarettes, in remission (ICD-10 - F17.211) Continue abstinence. Yearly LDCT chest for lung cancer screening February,hronic venous insufficiency (ICD-10 - I87.2)Avoid salt and elevate lower extremities, support stockings, inspect legs and feet daily for blisters and ulcerations. February,astroesophageal reflux disease with esophagitis without hemorrhage (ICD-10 - K21.00)Diet instructions: Smaller portions, avoid eating and laying flat, avoid eating or drinking prior to bedtime. Weight loss. 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 Titrate Gabapentin and monitor for fluid retention [facility] Other 05-08-2023 Evaluation note* Encounter Date Diagnosis Assessment Notes Treatment Notes Treatment Clinical Notes February, Primary hypertension (ICD-10 - I 10) February,hronic venous insufficiency (ICD-10 - I87.2) [employer] [facility] Other 04-19-2023 Evaluation note* Encounter Date Diagnosis [...] finalizing her med list, will add BB Jan,cute on chronic diastolic heart failure (ICD-10 - I50.33)Maintain adequate BP control Hydrate, avoid stimulants, avoid NSAIDs Daily weights and take extra Furosemide for unexplained weight gain > 3lb Jan,ulmonary hypertension (ICD-10 - I27.20)May be due to COPD, STACIE - evaluation after stress testing Jan,Obesity (BMI 30.0-34.9) (ICD-10 - E66.9)This patient has been instructed on a low-fat, high-fiber diet. They are instructed to reduce calori es, portion sizes and snacks. It is recommended that they exercise for 30 minutes, 3-5 times weekly. Jan,hronic venous insufficiency (ICD-10 - I87.2)Avoid salt and elevate lower extremities, support stockings, inspect legs and feet daily for blisters and ulcerations. Jan,AD (generalized anxiety disorder) (ICD-10 - F41.1)Healthy diet, exercise and keep active Jan,nemia, unspecified type (ICD-10 - D64.9)No obvious bleeding Denies N/V/D, melena or hematochezia Denies abdominal pain, change in appetite or bowel habits [employer] Other 04-16-2023 Evaluation note* Encounter Date Diagnosis Assessment Notes Treatment Notes Treatment Clinical Notes Jan, Essential hypertension (ICD-10 - I10) ECHOCARDIOGRAM - 01/2023 1. LVEF is 65%. 2. Normal right ventricular size and systolic function, elevated RVSP 3. Grade 2 diastolic dysfunction. 4. Mild to moderate mitral regurgitation. Jan,ulmonary hypertension (ICD-10 - I27.20) Jan,cute on chronic diastolic heart failure (ICD-10 - I50.33) [employer] [facility] Other 04-07-2023 Evaluation note* Encounter Date Diagnosis Assessment Notes Treatment Notes Treatment Clinical Notes Jan, Precordial pain (ICD-10 - R07.2) Activity limiting symptoms. Recommend stress testing to r/o myocardial ischemia Jan,OE (dyspnea on exertion) (ICD-10 - R06.09)Review CT scans - if no imaging in past year, will repeat Jan,Essential hypertension (ICD-10 - I10)This patient is instructed to consume a healthy, low-fat, low-salt diet. They are also encouraged to continue exercise to achieve/maintain a normal BMI. Jan,aresthesias (ICD-10 - R20.2)Healthy diet Keep active Increase evening Gabapentin to 200-300mg Jan,hronic venous insufficiency (ICD-10 - I87.2)Avoid salt and elevate lower extremities, support stockings, inspect legs and feet daily for blisters and ulcerations. Jan,Lung nodule (ICD-10 - R91.1)CT: 5mm nodule, GGO 07/2021 CT: unchanged 07/[address], review Oncology scans Jan,MGUS (monoclonal gammopathy of unknown significance) (ICD-10 - D47.2)f/u Hematology Jan,AD (generalized anxiety disorder) (ICD-10 - F41.1)Healthy diet, keep active continue Xanax as needed Jan,Nicotine dependence, cigarettes, in remission (ICD-10 - F17.211) Contnue abstinence Jan,Hyperlipidemia type II (ICD-10 - E78.01)Diet and exercise with continued statin therapy. [employer] Other 02-23-2023 Evaluation note* Encounter Date Diagnosis Assessment Notes Treatment Notes Treatment Clinical Notes Nov, Primary insomnia (ICD-10 - F51.0 1) [employer] Other 02-16-2023 Evaluation note* Encounter Date Diagnosis [...] reviewed and amended by provider signed below. Nov,Essential hypertension (ICD-10 - I10)This patient is instructed to consume a healthy, low-fat, low-salt diet. They are also encouraged to continue exercise to achieve/maintain a normal BMI. Nov,AD (generalized anxiety disorder) (ICD-10 - F41.1)Healthy diet, exercise and keep active. No change in medications Nov,hronic venous insufficiency (ICD-10 - I87.2)Avoid salt and elevate lower extremities, support stockings, inspect legs and feet daily for blisters and ulcerations. Nov,drenal nodule (ICD-10 - E27.9)Continue surveillance scans x 2 years. Discussed hormone active tumors, no evidence of pheo, dalia's or hyperplasia Nov,Restless leg syndrome (ICD-10 - G25.81)Exercise, stretching and continue [place] Nov,MGUS (monoclonal gammopathy of unknown significance) (ICD-10 - D47.2)Yearly SPEP w/ Dr. Mckenzie Nov,Obesity (BMI 30.0-34.9) (ICD-10 - E66.9)This patient has been instructed on a low-fat, high-fiber diet. They are instructed to reduce calori es, portion sizes and snacks. It is recommended that they exercise for 30 minutes, 3-5 times weekly. Nov,Nicotine dependence, cigarettes, in remission (ICD-10 - F17.211) Continue abstinence Nov,Screening mammogram for breast cancer (ICD-10 - Z12.31) [employer] Other 02-06-2023 History of Present illness Narrative* [...] PCP. Luis Mckenzie MD [facility]* Encounter Date Diagnosis Assessment Notes Treatment Notes Treatment Clinical Notes Oct, Essential hypertension (ICD-10 - I10) This patient is instructed to consume a healthy, low-fat, low-salt diet. They are also encouraged to continue exercise to achieve/maintain a normal BMI. Oct,hronic bronchitis, simple (ICD-10 - J41.0)Push fluids, Mucinex as needed, cough and deep breathing, keep active. No s/s of LRI Oct,recordial pain (ICD-10 - R07.2)Atypical chest pain, associated w/ wheezing. Not activity related and no activity limiting symptoms. No s/s consistent w/ infectious etiology. No s/s to suggest PE. Likely mild acute exacerbation of COPD. - suggest Mucinex and continue w/ normal daytime activity Oct,alpitation (ICD-10 - R00.2)Avoid stimulants, push fluids and keep active. Holter suggested to r/o paroxysmal tachycardia, extreme bradycardia Oct,AD (generalized anxiety disorder) (ICD-10 - F41.1)Healthy diet and exercise. Xanax as needed 1-3x daily. Oct,Lung nodule (ICD-10 - R91.1)Continue surveillance for lung cancer w/ yearly LDCT scans. Chronic interstitial abnormalities w/o change Oct,Nicotine dependence, cigarettes, in remission (ICD-10 - F17.211) Oct,hronic venous insufficiency (ICD-10 - I87.2)Avoid salt and elevate lower extremities, support stockings, inspect legs and feet daily for blisters and ulcerations. Oct,astroesophageal reflux disease with esophagitis without hemorrhage (ICD-10 - K21.00)Diet instructions: Smaller portions, avoid eating and laying flat, avoid eating or drinking prior to bedtime. Weight loss. [employer] Other 11-01-2022 Miscellaneous Notes* Telephone Encounter - [...] in November MARBIN Freeman [facility] History of Present illness Narrative* [...] 28, 2022 12:49 PM [facility] History of Present illness Narrative* [...] PCP. [facility] - Reported * LASHAUN JOAQUIN is being seen for a consultation for abnormal test(s) results. * 82-year-old female seen in cardiology consultation at the request of Dr. Natalio hathaway for recent episode of respiratory distress, what sounds like congestive heart failure associated with accelerated hypertension, was admitted to [facility] briefly, diuresed approximately 14 pounds with diuretics. [...] and proceed with heart cath this Sunday -[facility] [address] DO Work Phone: Evaluation note* Diagnosis Abnormal SPEP- Primary Other nonspecific findings on examination of blood Neuropathy - (NOS) 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 Lung nodules Other nonspecific abnormal finding of lung field documented in this encounter [facility] note* Diagnosis Abnormal SPEP- Primary Other nonspecific findings on examination of blood Neuropathy - (NOS) Lung nodules Other nonspecific abnormal finding of lung field [facility] noteNo InformationNort WedPics (deja mi) Other Evaluation noteNo assessment information available [facility] Work Phone: Evaluation note* Diagnosis Onset Date Resolution Status Flash pulmonary edema acuteHeart failureacuteHypertensionacuteHypertensive emergencyacuteHypoxiaacute [facility] Work Phone: Evaluation note* Diagnosis Abnormal SPEP- Primary Other nonspecific findings on examination of blood Anemia, unspecified type Neuropathy - (NOS) Heart disease Heart disease, unspecified [facility] Diagnosis Onset Date Resolution Status ASHD (arteriosclerotic heart disease) acuteChronic diastolic heart failureacuteChronic venous insufficiencyacute Elevated cholesterolacuteEssential hypertensionacuteGAD (generalized anxiety disorder)acuteGastroesophageal reflux disease with esophagitis without hemorrhageacuteMGUS (monoclonal gammopathy of unknown significance)acute [facility] Work Phone: Evaluation note* Diagnosis Onset Date Resolution Status ASHD (arteriosclerotic heart disease) acuteChronic diastolic heart failureacuteChronic venous insufficiencyacute Elevated cholesterolacuteEssential hypertensionacuteGAD (generalized anxiety disorder)acuteGastroesophageal reflux disease with esophagitis without hemorrhageacuteMGUS (monoclonal gammopathy of unknown significance)acuteMedicare annual wellness visit, subsequentnoneactiveEustachian tube dysfunctionacute Right otitis mediaacute [facility] Work Phone: Evaluation note* Diagnosis ASHD (arteriosclerotic heart disease)- Primary Coronary atherosclerosis of unspecified type of vessel, salamatof or graft Essential hypertension Unspecified essential hypertension Mixed hyperlipidemia BMI 32.0-32.9,adult documented in this encounter [facility] Work Phone: Evaluation note* Diagnosis Onset Date Resolution Status ASHD (arteriosclerotic heart disease) acuteChronic diastolic heart failureacuteChronic venous insufficiencyacute Elevated cholesterolacuteEssential hypertensionacuteGAD (generalized anxiety disorder)acuteGastroesophageal reflux disease with esophagitis without hemorrhageacuteMGUS (monoclonal gammopathy of unknown significance)acuteMedicare annual wellness visit, subsequentnoneactiveEustachian tube dysfunctionacute Right otitis mediaacuteASHD (arteriosclerotic heart disease)acuteChronic diastolic heart failureacuteChronic venous insufficiencyacuteEssential hypertensionacuteGAD (generalized anxiety disorder)acuteSubclinical hypothyroidismacute [facility] Work Phone: Evaluation note* Diagnosis ASHD (arteriosclerotic heart disease) Coronary atherosclerosis of unspecified type of vessel, salamatof or graft documented in this encounter [facility] Work Phone: Evaluation note* Diagnosis Onset Date Resolution Status Anemia acuteASHD (arteriosclerotic heart disease)acuteChronic diastolic heart failure acuteChronic venous insufficiencyacuteEssential hypertensionacuteGAD (generalized anxiety disorder)acuteSubclinical hypothyroidismacute [facility] Work Phone: Evaluation note* Diagnosis 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 Lung nodules Other nonspecific abnormal finding of lung field [facility]* Diagnosis Onset Date Resolution Status Admit Date Anemia acuteNovember 2023 10:16amASHD (arteriosclerotic heart disease)acute November 2023 10:16amChronic bronchitisacuteNovember 2023 10:16am Chronic heart failure with preserved ejection fraction (HFpEF)acuteNov2023 10:16amChronic venous insufficiencyacuteNovember 2023 10:16am Essential hypertensionacuteNovember 2023 10:16amGAD (generalized anxiety disorder)acuteNov2023 10:16amHypercholesterolemiaacuteNovember 2023 10:16amSubclinical hypothyroidismacuteNovember 2023 10:16am [facility] Work Phone: Evaluation note* Diagnosis Essential hypertension- Primary Unspecified essential hypertension ASHD (arteriosclerotic heart disease) Coronary atherosclerosis of unspecified type of vessel, salam[place] or graft Mixed hyperlipidemia BMI 32.0-32.9,adult documented in this encounter [facility] Work Phone: Evaluation note* Diagnosis ASHD (arteriosclerotic heart disease)- Primary Coronary atherosclerosis of unspecified type of vessel, salam[place]of or graft Essential hypertension Unspecified essential hypertension Mixed hyperlipidemia BMI 32.0-32.9,adult Essential hypertension- Primary Unspecified essential hypertension ASHD (arteriosclerotic heart disease) Coronary atherosclerosis of unspecified type of vessel, salam[place]of or graft Mixed hyperlipidemia BMI 32.0-32.9,adult ASHD (arteriosclerotic heart disease) Coronary atherosclerosis of unspecified type of vessel, salamatof or graft Essential hypertension Unspecified essential hypertension BMI 33.0-33.9,adult Former smoker Personal history of tobacco use, presenting hazards to health S/P PTCA (percutaneous transluminal coronary angioplasty) Postsurgical percutaneous transluminal coronary angioplasty status Mixed hyperlipidemia Coronary arteriosclerosis after percutaneous transluminal coronary angioplasty (PTCA) documented in this encounter [facility] Work Phone: Evaluation note* Diagnosis Thyroid nodule (CMS/HCC)- Primary Nontoxic uninodular goiter [facility] Diagnosis ASHD (arteriosclerotic heart disease)- Primary Coronary atherosclerosis of unspecified type of vessel, salam[place]of or graft Essential hypertension Unspecified essential hypertension Mixed hyperlipidemia BMI 32.0-32.9,adult Essential hypertension- Primary Unspecified essential hypertension ASHD (arteriosclerotic heart disease) Coronary atherosclerosis of unspecified type of vessel, salamatof or graft Mixed hyperlipidemia BMI 32.0-32.9,adult BMI 33.0-33.9,adult- Primary Essential hypertension Unspecified essential hypertension Palpitations ASHD (arteriosclerotic heart disease) Coronary atherosclerosis of unspecified type of vessel, salamatof or graft Mixed hyperlipidemia documented in this encounter [facility] Work Phone: Evaluation note* Diagnosis Nontoxic multinodular goiter (CMS/HCC)- Primary Nontoxic multinodular goiter [facility] Diagnosis ASHD (arteriosclerotic heart disease)- Primary Coronary atherosclerosis of unspecified type of vessel, salamatof or graft Essential hypertension Unspecified essential hypertension Mixed hyperlipidemia BMI 32.0-32.9,adult Essential hypertension- Primary Unspecified essential hypertension ASHD (arteriosclerotic heart disease) Coronary atherosclerosis of unspecified type of vessel, salamatof or graft Mixed hyperlipidemia BMI 32.0-32.9,adult BMI 33.0-33.9,adult- Primary Essential hypertension Unspecified essential hypertension Palpitations ASHD (arteriosclerotic heart disease) Coronary atherosclerosis of unspecified type of vessel, salamatof or graft Mixed hyperlipidemia Essential hypertension Unspecified essential hypertension Palpitations documented in this encounter [facility] Work Phone: Evaluation note* Diagnosis Abnormal SPEP- Primary Other nonspecific findings on examination of blood [facility]* Diagnosis Abnormal SPEP- Primary Other nonspecific findings on examination of blood Primary hypertension Unspecified essential hypertension Hyperlipidemia, unspecified hyperlipidemia type Heart disease Heart disease, unspecified Edema, unspecified type 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 Anemia in other chronic diseases classified elsewhere documented in this encounter [facility] general Narrative - Reported* Type Description Date Medical History Submandibular lymphadenopathy Medical HistoryChronic venous insufficiencyMedical HistoryNicotine dependence, cigarettes, in remissionMedical HistoryRestless leg syndromeMedical HistoryPain in right legMedical HistoryMenopauseMedical HistoryChronic pain of right knee Medical HistoryHip pain, rightMedical HistoryAdverse effect of unspecified drugs, medicaments and biological substances, subsequent encounterMedical HistoryMGUS (monoclonal gammopathy of unknown significance)Medical HistoryLung noduleMedical HistoryAdrenal noduleMedical HistoryElevated serum immunoglobulin free light chain levelMedical HistoryAdrenal noduleMedical HistoryIrritable bowel syndrome with diarrheaMedical HistoryTrochanteric bursitis of right hip Medical HistoryUTI symptomsMedical HistoryUnsteady gaitMedical HistoryCervical spondylosis with radiculopathyMedical HistoryLipoma of neckMedical HistoryPtosis of right eyelidMedical HistoryTendinitis, de Quervain'sMedical History Neuropathy, peripheralMedical HistoryComplaint of paresthesiaMedical History Primary insomniaMedical HistoryAtrophic vaginitisMedical HistoryChronic bronchitis, simpleMedical HistoryHyperlipidemia type IIMedical HistoryMild obesityMedical HistoryGAD (generalized anxiety disorder)Medical HistoryEssential hypertensionMedical HistoryGastroesophageal reflux disease with esophagitis without hemorrhageMedical HistoryGround glass opacity present on imaging of lung Medical HistoryEstrogen deficiencyMedical HistoryVagina itchingMedical History MalaiseMedical HistoryExogenous obesityMedical HistoryAnemiaSurgical History catarac [id number] [id number] Historysee surgical history [employer] Other History general Narrative - Reported* Type Description Date Medical History Submandibular lymphadenopathy Medical HistoryChronic venous insufficiencyMedical HistoryNicotine dependence, cigarettes, in remissionMedical HistoryRestless leg syndromeMedical HistoryPain in right legMedical HistoryMenopauseMedical HistoryChronic pain of right knee Medical HistoryHip pain, rightMedical HistoryAdverse effect of unspecified drugs, medicaments and biological substances, subsequent encounterMedical HistoryMGUS (monoclonal gammopathy of unknown significance)Medical HistoryLung noduleMedical HistoryAdrenal noduleMedical HistoryElevated serum immunoglobulin free light chain levelMedical HistoryAdrenal noduleMedical HistoryIrritable bowel syndrome with diarrheaMedical HistoryTrochanteric bursitis of right hip Medical HistoryUTI symptomsMedical HistoryUnsteady gaitMedical HistoryCervical spondylosis with radiculopathyMedical HistoryLipoma of neckMedical HistoryPtosis of right eyelidMedical HistoryTendinitis, de Quervain'sMedical History Neuropathy, peripheralMedical HistoryComplaint of paresthesiaMedical History Primary insomniaMedical HistoryAtrophic vaginitisMedical HistoryChronic bronchitis, simpleMedical HistoryHyperlipidemia type IIMedical HistoryMild obesityMedical HistoryGAD (generalized anxiety disorder)Medical HistoryEssential hypertensionMedical HistoryGastroesophageal reflux disease with esophagitis without hemorrhageMedical HistoryGround glass opacity present on imaging of lung Medical HistoryEstrogen deficiencyMedical HistoryVagina itchingMedical History MalaiseMedical HistoryExogenous obesityMedical HistoryAnemiaSurgical History catarac [id number] HistoryPCI/stent RCA and diagonal br/2022Hospitalization Historysee surgical history [employer] Other Hospital Discharge instructions Additional Instructions Please [...] to control your blood pressure in the hospital.[facility] Work Phone: Hospital Discharge instructionsAmbulatory Orders* Referral to ENT Time Frame: 11/19/24, Location: None Selected [facility] Work Phone: Reason for referral (narrative)* Consultation (Routine) - AuthorizedSpecialtyDiagnoses / ProceduresReferred By Contact Referred To ContactCardiology Diagnoses ASHD (arteriosclerotic heart disease) Procedures Follow Up In Cardiology Hloden Rosado APRN-CNP [facility] [facility], [address] [address] Referral IDStatusReasonStart DateExpiration DateVisits RequestedVisits [id number]/8/20245/8/[id number] * Cardiac Stress Testing (Routine) - Pending ReviewSpecialtyDiagnoses / ProceduresReferred By ContactReferred To ContactRadiology Diagnoses ASHD (arteriosclerotic heart disease) Procedures Nuclear Stress Test CHG MYOCARDIAL SPECT MULTIPLE STUDIES Holden Rosado APRN-CNP [address] [place] [address], [address] [address] Referral IDStatusReasonStart DateExpiration DateVisits RequestedVisits [id number] Review [facility] Work Phone: Reooza for referral (narrative)* Consultation (Routine) - AuthorizedSpecialtyDiagnoses / ProceduresReferred By Contact Referred To ContactCardiology Diagnoses ASHD (arteriosclerotic heart disease) Procedures Follow Up In Cardiology Holden Rosado APRN-CNP [facility] [facility], [address] [address] Referral IDStatusReasonStart DateExpiration DateVisits RequestedVisits [id number]/24/20246/ [facility] Work Phone: Reason for referral (narrative)No reason for referral information availableToledo Hospital Work Phone: Reason for visit Narrative* CV Imaging (Routine) - AuthorizedSpecialtyDiagnoses / ProceduresReferred By ContactReferred To ContactCardiology Diagnoses Essential hypertension Palpitations Procedures Transthoracic Echo Complete MD ECHO TTHRC R-T 2D W/WOM-MODE COMPL SPEC&COLR D Holden Rosado APRN-CNP [address] [place] [address], [address] [address] Phone: tel: fax: Referral IDStatusReasonStart DateExpiration DateVisits RequestedVisits [id number] Perform Procedure [facility] Work Phone: Advance Directives TypeDate RecordedPatient RepresentativeExplanationAdvance Directive(s)08/01/2021 12:55 PMAdvance DirectivesTypeDate RecordedPatient RepresentativeExplanation Advance Directive(s)08/01/2021 12:55 PMAdvance Directives Advance Directive Response Recorded Date/ Time Advance Directives No March 07 1:03pm Advance Directive Response Recorded Date/ Time Advance Directives No March 07 12:03pm Reason for Referral SpecialtyDiagnoses / ProceduresReferred By ContactReferred To ContactCT IMAGING Diagnoses Lung nodules Procedures CT CHEST W IVCON DIAGNOSTIC COMPUTED TOMOGRAPHY THORAX W/CONTRAST Luis Mckenzie MD [address] [place] [address] [place] [address] Ct Imaging Referral IDStatusReasonStart DateExpiration DateVisits RequestedVisits [id number] Auto-Generated Referral /[id number] / ProceduresReferred By ContactReferred To ContactCT IMAGING Diagnoses Disorder of adrenal gland (HCC) Procedures CT ABD/PEL W IVCON CT ABD & PELVIS W/CONTRAST Luis Mckenzie MD [address] [place] [address] [place] [address] Ct Imaging Referral IDStatusReasonStart DateExpiration DateVisits RequestedVisits [id number] Auto-Generated Referral [id number] / ProceduresReferred By ContactReferred To ContactRadiology Diagnoses ASHD (arteriosclerotic heart disease) Procedures Nuclear Stress Test CHG MYOCARDIAL SPECT MULTIPLE STUDIES Holden Rosado, 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-HOME MANAGEMENT SUPERVISOR [facility] [facility], [address] [place] [address] Referral IDStatusReasonStart DateExpiration DateVisits RequestedVisits [id number] Review/[id number] / Procedures Referred By ContactReferred To ContactCT IMAGING Diagnoses Lung nodules Procedures CT CHEST W IVCON DIAGNOSTIC COMPUTED TOMOGRAPHY THORAX W/CONTRAST Luis Mckenzie MD [address] [place] [address] [place] [address] Ct Imaging [place] [address] Referral IDStatusReasonStart DateExpiration DateVisits RequestedVisits [id number] Auto-Generated Referral [id number] / ProceduresReferred By ContactReferred To ContactCT IMAGING Diagnoses Disorder of adrenal gland (HCC) Procedures CT ABD/PEL W IVCON CT ABD & PELVIS W/CONTRAST Luis Mckenzie MD [address] [place] [address] [place] [address] Ct Imaging [facility] Referral IDStatusReasonStart DateExpiration DateVisits RequestedVisits [id number] Auto-Generated Referral Family History Unknown Family Member Name Dates Details Cardiac defibrillator in jorge ce: Mother, Brother Status:ActiveFamily history of hypertension: Father, Brother(V17.49, Z82.49) Status:ActiveFamily history of coronary artery disease: Father(V17.3, Z82.49) Status:ActiveFamily history of malignant neoplasm: Sister, Brother(V16.9, Z80.9) Status:Active Relationship Condition Age at Onset Recorded Date/T jerzy brother Type 2 diabetes mellitus Unknown Heart diseaseUnknownfatherMyocardial infarctionUnknownNot SpecifiedHistory of implantable cardioverter-defibrillator (ICD) insertionUnknownbrotherMalignant neoplasm of kidneyUnknownsisterMultiple sclerosisUnknownLeukemiaUnknownbrother Malignant neoplasm of lungUnknownExposure to Agent OrangeUnknownbrotherMalignant neoplasm of colonUnknownbrotherMalignant neoplasm of urinary bladderUnknown Unknown Family Member Name Dates Details Cardiac defibrillator in jorge ce: Mother, Brother Status:ActiveFamily history of hypertension: Father, Brother(V17.49, Z82.49) Status:ActiveFamily history of coronary artery disease: Father(V17.3, Z82.49) Status:ActiveFamily history of malignant neoplasm: Sister, Brother(V16.9, Z80.9) Status:Active Unknown Family Member Name Dates Details Cardiac defibrillator in jorge ce: Mother, Brother Status:ActiveFamily history of hypertension: Father, Brother(V17.49, Z82.49) Status:ActiveFamily history of coronary artery disease: Father(V17.3, Z82.49) Status:ActiveFamily history of malignant neoplasm: Sister, Brother(V16.9, Z80.9) Status:Active Relationship Condition Age at Onset Recorded Date/T jerzy brother Type 2 diabetes mellitus Unknown Heart diseaseUnknownfatherMyocardial infarctionUnknownNot SpecifiedHistory of implantable cardioverter-defibrillator (ICD) insertionUnknownbrotherMalignant neoplasm of kidneyUnknownsisterMultiple sclerosisUnknownLeukemiaUnknownbrother Malignant neoplasm of lungUnknownExposure to Agent OrangeUnknownbrotherMalignant neoplasm of colonUnknownbrotherMalignant neoplasm of urinary bladderUnknown brotherMalignant neoplasmUnknownfatherDeceasedUnknownNot SpecifiedDeceased Unknown Relationship Condition Age at Onset Recorded Date/T jerzy brother Type 2 diabetes mellitus Unknown Heart diseaseUnknownfatherMyocardial infarctionUnknownmotherHistory of implantable cardioverter-defibrillator (ICD) insertionUnknownbrotherMalignant neoplasm of kidneyUnknownsisterMultiple sclerosisUnknownLeukemiaUnknownbrother Malignant neoplasm of lungUnknownExposure to Agent OrangeUnknownbrotherMalignant neoplasm of colonUnknownbrotherMalignant neoplasm of urinary bladderUnknown brotherMalignant neoplasmUnknownfatherDeceasedUnknownmotherDeceasedUnknown Summary Purpose Chief Complaint and Reason for Visit Chief Complaint Angina Class 3 Chief Complaint Angina Class 3 Angina Class 3 Difficulty breathingReason for VisitFlash pulmonary edema Heart failure Hypertension Hypertensive emergency Hypoxia Chief Complaint Amb Documentation Medicare WellnessReason for VisitASHD (arteriosclerotic heart disease) Chronic diastolic heart failure Chronic venous insufficiency Elevated cholesterol Essential hypertension OMAR (generalized anxiety disorder) Gastroesophageal reflux disease with esophagitis without hemorrhage MGUS (monoclonal gammopathy of unknown significance) Chief Complaint Amb Documentation Medicare Wellness ear acheReason for VisitASHD (arteriosclerotic heart disease) Chronic diastolic heart failure Chronic venous insufficiency Elevated cholesterol Essential hypertension OMAR (generalized anxiety disorder) Gastroesophageal reflux disease with esophagitis without hemorrhage MGUS (monoclonal gammopathy of unknown significance) Medicare annual wellness visit, subsequent Eustachian tube dysfunction Right otitis media Chief Complaint Amb Documentation Medicare Wellness ear ache Amb Documentation TBH FOLLOW UP [id number] for VisitASHD (arteriosclerotic heart disease) Chronic diastolic heart failure [...] hypothyroidism Chief Complaint i10 4 month follow upReason for VisitAnemia ASHD (arteriosclerotic heart disease) Chronic diastolic heart failure Chronic venous insufficiency Essential hypertension OMAR (generalized anxiety disorder) Subclinical hypothyroidism Chief Complaint 4 month follow up flu shotReason for VisitAnemia ASHD (arteriosclerotic heart disease) Chronic diastolic heart [...] 19, 2025 3:17pm ASHD (arteriosclerotic heart disease) [facility] 2024 9:23am Chronic bronchitis June 19, 2025 [...] 9: 23am Screening mammogram for breast cancer [facility] 2024 9:23am Subclinical hypothyroidism June 19, 2025 [...] 9: 23am ASHD (arteriosclerotic heart disease) [facility] 2024 9:23am Chronic bronchitis June 19, 2025 [...] 9: 23am Screening mammogram for breast cancer [facility] 2024 9:23am Subclinical hypothyroidism June 19, 2025 9:23am Thyroid nodule June 19, 2025 9: 23am Acute on chronic heart failu re with preserved ejection fraction (HFpEF) June 19, 2025 9:23am Medicare annual wellness visit, subseque nt June 19, 2025 9:23am Anemia July 21, 2025 3:32pm ASHD (arteriosclerotic heart disease) Se ptember 2024 3:32pm Chronic bronchitis July 21, 2025 3:32pm Chronic kidney disease July 21, 025 3:32pm Chronic venous insufficiency June 302024 3:32pm Essential hypertension July 21, 2 025 3:32pm OMAR (generalized anxiety disorder) Septe mber [...] 9: 23am ASHD (arteriosclerotic heart disease) [facility] 2024 9:23am Chronic bronchitis June 19, 2025 [...] 9: 23am Screening mammogram for breast cancer [facility] 2024 9:23am Subclinical hypothyroidism June 19, 2025 [...] or prosecute any alcohol or drug abuse patient.[facility] HospitalIn the event this information is protected by the Federal Confidentiality of Alcohol and Drug Abuse Patient Records regulations: The Federal rules restrict any use of the information to criminally investigate or prosecute any alcohol or drug abuse patient.[facility] HospitalIn the event this information is protected by the Federal Confidentiality of Alcohol and Drug Abuse Patient Records regulations: The Federal rules restrict any use of the information to criminally investigate or prosecute any alcohol or drug abuse patient.[facility] HospitalIn the event this information is protected by the Federal Confidentiality of Alcohol and Drug Abuse Patient Records regulations: The Federal rules restrict any use of the information to criminally investigate or prosecute any alcohol or drug abuse patient.[facility] HospitalIn the event this information is protected by the Federal Confidentiality of Alcohol and Drug Abuse Patient Records regulations: The Federal rules restrict any use of the information to criminally investigate or prosecute any alcohol or drug abuse patient.[facility] HospitalIn the event this information is protected by the Federal Confidentiality of Alcohol and Drug Abuse Patient Records regulations: The Federal rules restrict any use of the information to criminally investigate or prosecute any alcohol or drug abuse patient.[facility] HospitalIn the event this information is protected by the Federal Confidentiality of Alcohol and Drug Abuse Patient Records regulations: The Federal rules restrict any use of the information to criminally investigate or prosecute any alcohol or drug abuse patient.[facility] HospitalIn the event this information is protected by the Federal Confidentiality of Alcohol and Drug Abuse Patient Records regulations: The Federal rules restrict any use of the information to criminally investigate or prosecute any alcohol or drug abuse patient.[facility] HospitalIn the event this information is protected by the Federal Confidentiality of Alcohol and Drug Abuse Patient Records regulations: The Federal rules restrict any use of the information to criminally investigate or prosecute any alcohol or drug abuse patient.[facility] HospitalIn the event this information is protected by the Federal Confidentiality of Alcohol and Drug Abuse Patient Records regulations: The Federal rules restrict any use of the information to criminally investigate or prosecute any alcohol or drug abuse patient.[facility] HospitalIn the event this information is protected by the Federal Confidentiality of Alcohol and Drug Abuse Patient Records regulations: The Federal rules restrict any use of the information to criminally investigate or prosecute any alcohol or drug abuse patient.[facility] Reason for Visit (unrecogniz ed section and content) ReasonCommentsLab OrdersReasonCommentsabnormal spepReasonCommentsResultsReason CommentsAbnormal SPEPReasonCommentsFollow-upbradycardiaSpecialtyDiagnoses / ProceduresReferred By ContactReferred To ContactRadiology Diagnoses ASHD (arteriosclerotic heart disease) Procedures Nuclear Stress Test CHG MYOCARDIAL SPECT MULTIPLE STUDIES Holden Rosado, 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-HOME MANAGEMENT SUPERVISOR [address] [facility] [address] [place] [address] Referral IDStatusReasonStart DateExpiration DateVisits RequestedVisits [id number] Review/[id number] CT SpecialtyDiagnoses / ProceduresReferred By ContactReferred To ContactCT IMAGING Diagnoses Lung nodules Procedures CT CHEST W IVCON DIAGNOSTIC COMPUTED TOMOGRAPHY THORAX W/CONTRAST Luis Mckenzie MD [address] [place] [address] [place] [address] [address] [facility] [place] [address] Referral IDStatusReasonStart DateExpiration DateVisits RequestedVisits [id number] Auto-Generated Referral /[id number]-nhNrxx resultxSpecialtyDiagnoses / ProceduresReferred By ContactReferred To ContactCardiology Diagnoses ASHD (arteriosclerotic heart disease) Procedures Follow Up In Cardiology Edinson Perry, DO [address] [place] [address], [place] [phone] Holden Rosado, 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-HOME MANAGEMENT SUPERVISOR [address] [place] [address], [place] [phone] Ref[facility]StatusRe[facility] DateExpiration DateVisits RequestedVisits [id number]/20/202312/[id number]-mc9 month SpecialtyDiagnoses / ProceduresReferred By ContactReferred To ContactCardiology Diagnoses ASHD (arteriosclerotic heart disease) Procedures Follow Up In Cardiology Holden Rosado, 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-HOME MANAGEMENT SUPERVISOR [address] [place] [address], [place] [phone] Phone: tel: fax: Referral IDStatusReasonSttiplersville DateExpiration DateVisits RequestedVisits [id number]/24/20246/[id number] DateCommentsMed [id number] NoduleSpecialtyDiagnoses / Procedures Referred By ContactReferred To ContactOtolaryngology Diagnoses Nontoxic single thyroid nodule (CMS/HCC) Procedures MD UNLISTED EVALUATION AND MANAGEMENT SERVICE Nathan Hathaway MD [address] [place] [address] Phone: tel: Reyna Esparza MD [address] [place] [address] Phone: tel: fax: Referral IDStatusReasonStart DateExpiration DateVisits RequestedVisits [id number]/22/20257/[id number]-ie7 months Follow up for Coronary Artery DiseaseSpecialtyDiagnoses / ProceduresReferred By ContactReferred To ContactCardiology Diagnoses Essential hypertension Procedures Follow Up In Cardiology Edinson Perry, DO [address] [facility], [address] [address] Phone: tel: fax: Holden Rosado, 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-HOME MANAGEMENT SUPERVISOR [address] [facility], [address] [address] Phone: tel: fax: Referral IDStatusReasonStart DateExpiration DateVisits RequestedVisits [id number]/11/202412/[id number] Nodule Follow ultrasound [facility] 02/10/25ReasonCommentsLab OrdersntReasonCommentsOrders Patient UpdateReasonCommentsAbnormal SPEPFOLLOW UP Care Teams (unrecognized sec tion and [...] Status: Active Member Role Status Dates Nathan Ball , DO Primary Care Provide r, Attending Provider Active Start: December 18, 2024 Team Status: Inactive Member Role Status Dates Nathan Hathaway , DO Primary Care Provide r, Attending Provider Active Start: December 29, 2024 End: December 29, 2024 Team Status: Active Member Role Status Dates Nathan Hathaway , DO Primary Care Provide r, Attending Provider Active Start: September 04, 2024 Team Status: Inactive Member Role Status Dates Nathan Hathaway , DO Primary Care Provide r, Attending Provider Active Start: September 11, 2024 End: September 11, 2024 Team Status: Active Member Role Status Dates Nathan Hathaway DO Primary Care Provide r, Attending Provider Active Start: September 12, 2024 Team Status: Inactive Member Role Status Dates Nathan Hathaway , DO Primary Care Provide r, Attending Provider Active Start: July 16, 2024 End: July 16, 2024 Team Status: Active Member Role Status Dates Nathan Hathaway DO Primary Care Provider Active Start: April 30, 2024 Cosme Gallego ProviderActiveStart: April 30, 2024 Team Status: Active Member [...] Active Start: March 05, 2024 End: March 05Cosme Miranda ProviderActiveStart: March 05, 2024 End: March 05, 2024 Team Status: Active Member Role Status Dates Nathan Hathaway DO Primary Care Provider Active Start: December 18, 2023 Dian Sunshine ProviderActiveStart: December 18, 2023 Team Status: Inactive Member Role Status Dates Nathan Hathaway DO Primary Care Provide r, Attending Provider Active Start: February 01, 2024 End: February 01, 2024Team MemberRelationshipSpecialtyStart DateEnd Date Nathan Hathaway DO PCP - GeneralInternal Medicine01/31/12Team MemberRelationshipSpecialtyStart Date End Date Nathan Hathaway DO PCP - GeneralInternal Medicine01/31/12Team MemberRelationshipSpecialtyStart Date End Date Nathan Hathaway DO PCP - [facility]01/31/12Team MemberRelationshipSpecialtyStart Date End Date Fransico Nathan Whitlock DO PCP - [facility]01/31/12 Team Status: Inactive Member Role Status Dates Jonna Perry , DO Attending Provider Active Lindsay Prado ProviderActive Team Status: Inactive Member Role Status Dates Nathan Hathaway DO Primary Care Provider Active Galina Quick ProviderActiveLj Ryan , DOAdmit Provider, Attending ProviderActiveTeam MemberRelationshipSpecialtyStart DateEnd Date Nathan Hathaway DO PCP - [facility]01/31/12Team MemberRelationshipSpecialtyStart Date End Date Nathan Hathaway DO PCP - [facility]01/31/12 Team Status: Active Member Role Status Dates Nathan Hathaway DO Primary Care Provide r, Attending Provider Active Start: February 02, 2024 Team Status: Inactive Member Role Status Dates Nathan Hathaway DO Primary Care Provider Active Start: February 13, 2024 End: February 13, 2024Deja Pope APRN TRUCK SAFETY INSPECTOR-CAttending ProviderActive Start: February 13, 2024 End: February 13, 2024Team MemberRelationshipSpecialtyStart DateEnd Date Nathan Hathaway DO PCP - [facility]10/03/23 Team Status: Active Member Role Status Dates [...] Care Provider Active Start: February 21, 2024 Georges Paredes ProviderActiveStart: February 21, 2024 Team Status: Inactive Member Role Status Dates Nathan Hathaway DO Primary Care Provide r, Attending Provider Active Start: February 27, 2024 End: February 27, 2024Team MemberRelationshipSpecialtyStart DateEnd Date [facility] Ymkqsfkk22/6/23Team MemberRelationshipSpecialtyStart Date End Date Nathan [facility]athaway [facility] Smnofndh67/6/23Team MemberRelationshipSpecialtyStart Date End Date Nathan Hathaway DO [facility] - [facility] Hgplvvhk59/6/23Team MemberRelationshipSpecialtyStart Date End Date Nathan Hathaway DO [facility] - [facility] Zildtjwh18/6/23Team MemberRelationshipSpecialtyStart Date End Date Nathan Hathaway DO [facility] - [facility] Hospitalnal [facility]01/31/12Team MemberRelationshipSpecialtyStart Date End Date Nathan Hathaway DO [facility] - [facility]nal Cpfzalcm02/6/23Team MemberRelationshipSpecialtyStart Date End Date [facility] Zdhokjys61/6/23Team MemberRelationshipSpecialtyStart Date End Date Nathan Hathaway MD [address] [place] [facility] [phone] PCP - External PCPInternal Medicine06/29/23Team MemberRelationshipSpecialtyStart DateEnd Date Nathan Hathaway MD [address] [place] [address] PCP - External PCPInternal Medicine06/29/23Team MemberRelationshipSpecialtyStart DateEnd Date Nathan Hathaway MD [address] [place] [facility] [place] [address] PCP - External PCPInternal Medicine06/29/23Team MemberRelationshipSpecialtyStart DateEnd Date Nathan Hathaway DO PCP - GeneralInternal Lykldqdw87/6/23 Team Status: Inactive Member Role Status Dates Nathan Hathaway DO Primary Care Provide r, Attending Provider Active Start: January 22, 2025 End: January 22, 2025Team MemberRelationshipSpecialtyStart DateEnd Date Nathan Hathaway MD [address] [place] [address] PCP - GeneralInternal Medicine02/10/25Team MemberRelationshipSpecialtyStart Date End Date Nathan Hathaway DO [address] [place] [phone] PCP - GeneralInternal Medicine02/10/25Team MemberRelationshipSpecialtyStart Date End Date Nathan Hathaway DO [address] [facility] [place] [address] PCP - GeneralInternal Medicine02/10/25Team MemberRelationshipSpecialtyStart Date End Date Nathan Hahtaway DO [address] [place] [address] PCP - GeneralInternal Medicine03/09/25 Team Status: Active Member Role Status Dates Nathan Hathaway DO Primary Care Provide r, Attending Provider Active Start: January 23, 2025 Team Status: Inactive Member Role Status Dates Nathan Hathaway DO Primary Care Provider Active Start: February 12, 2025 End: February 12hector Cruz DOEmergenkristan ProviderActiveStart: February 12, 2025 End: February 12, 2025 [...] Active Start: March 13, 2025 End: March 13rob Hathaway DOAttending ProviderActiveStart: March 13, 2025 End: March 13, 2025 Team Status: Active Member Role Status Dates Nathan Hathaway DO Primary Care Provider Active Start: March 18, 2025 Nathan Hathaway DOAttending ProviderActiveStart: March 18, 2025 Team Status: Inactive Member Role Status Dates Nathan Hathaway DO Primary Care Provider Active Start: March 19, 2025 End: March 19rob Hathaway DOAttending ProviderActiveStart: March 19, 2025 End: March 19, 2025 Team Status: Inactive Member Role Status Dates Nathan Hathaway DO Primary Care Provider Active Start: May 19, 2025 End: May 19enjamin Ball , DOAttending ProviderActiveStart: May 19, 2025 End: May 19, 2025 Team Status: Inactive Member Role Status Dates Nathan Hathaway DO Primary Care Provider Active Start: June 19, 2025 End: June 19rob Hathaway DOAttending ProviderActiveStart: June 19, 2025 End: June 19, 2025Team MemberRelationshipSpecialtyStart DateEnd Date FransicoNathan Chinyere PCP - [facility]01/31/12Team MemberRelationshipSpecialtyStart Date End Date Nathan Hathaway DO PCP - [facility]01/31/12Team MemberRelationshipSpecialtyStart Date End Date Nathan Hathaway DO PCP - [facility]01/31/12 Team Status: Active Member Role Status Dates Nathan Hathaway DO Primary Care Provider Active Start: June 23, 2025 Nathan Hathaway DOAttsalina ProviderActiveStart: June 23, 2025 Team Status: Active Member Role Status Dates Nathan Hathaway DO Primary Care Provider Active Start: June 24, 2025 Nathan Hathaway DOAttending ProviderActiveStart: June 24, 2025 Team Status: Active Member Role Status Dates Nathan Hathaway DO Primary Care Provider Active Start: July 08, 2025 Fanny Bedoya APRN TRUCK SAFETY INSPECTOR-CAttending ProviderActiveStart: July 08, 2025 Team Status: Active Member Role Status Dates Nathan Hathaway DO Primary Care Provider Active Start: July 15, 2025 Valentin Leonard MDAttending ProviderActiveStart: July 15, 2025 Team Status: Inactive Member Role Status Dates Nathan Hathaway DO Primary Care Provider Active Start: July 21, 2025 End: July 21rob Hathaway DOAttending ProviderActiveStart: July 21, 2025 End: July 21, 2025 Team Status: Inactive Member Role Status Dates Nathan Ball , DO Primary Care Provider Active Start: August 04, 2025 End: August 04, 2025Kaia Krishna NP-CAttending ProviderActiveStart: August 04, 2025 End: August 04, 2025 INFORMATION SOURCE (unrecogn ized section and content) DATE CREATED AUTHOR 03/08/2023 [facility] DATE CREATED AUTHOR AUTHOR'S ORGANIZ ATION 03/09/2023 [facility] DATE CREATED AUTHOR AUTHOR'S ORGANIZ ATION 03/11/2023 [facility] DATE CREATED AUTHOR AUTHOR'S ORGANIZ ATION 02/14/2025 [facility] DATE CREATED AUTHOR AUTHOR'S ORGANIZ ATION 02/26/2025 [facility] DATE CREATED AUTHOR AUTHOR'S ORGANIZ ATION 03/26/2025 [facility] DATE CREATED AUTHOR AUTHOR'S ORGANIZ ATION 03/26/2025 [facility] DATE CREATED AUTHOR AUTHOR'S ORGANIZ ATION 07/19/2025 [facility] Goals (unrecognized section and content) Goals [...] BE BASED ON THE PRIMARY CLINICAL RECORDS. [facility] [employer] provides no warranty or guarantee of the accuracy or completeness of information in this document.
--- OUTSIDE RECORDS SUMMARY | 2025-08-18 06:28 | XMS_ITS | Clinical Summary ---
Author Organization [facility] Address [address] [place] [address] Phone Care Team Providers Care Shoe Sprayer Name Role Phone Nathan Bateman DO Primary Care Provider [phone] Allergies Active AllergyReactionsCriticalityNoted DateComments Sulfamethoxazole-HyomagsziyuaZktyr84/12/9527PibbfsurxzgwQlijlobu29/20/2023 Tongue swelling Medications MedicationSigDispense QuantityRefillsLast FilledStart DateEnd DateStatus ALPRAZolam (Niravam) 0.25 mg disintegrating tablet Dissolve 1 tablet (0.25 mg) in the mouth as needed at bedtime for anxiety.Active gabapentin (Neurontin) 100 mg capsule Take 1 capsule (100 mg) by mouth 2 times a day.Active pantoprazole (ProtoNix) 40 mg EC tablet Take 1 tablet (40 mg) by mouth once daily in the morning. Take before meals. Do not crush, chew, orsplit.Active temazepam (Restoril) 15 mg capsule Take 1 capsule (15 mg) by mouth as needed at bedtime for sleep.Active NIFEdipine XL 30 mg 24 hr tablet Take 1 tablet (30 mg) by mouth once daily.02/20/2024ctive potassium chloride CR 10 mEq ER tablet Take 1 tablet (10 mEq) by mouth once daily. Do not crush, chew, or split.Active valsartan (Diovan) 80 mg tablet Indications:Essential hypertensionTake 1 tablet (80 mg) by mouth once daily. 90 tablet 5Active clopidogrel (Plavix) 75 mg tablet Indications:ASHD (arteriosclerotic heart disease),S/P PTCA (percutaneous transluminal coronary angioplasty)Take 1 tablet (75 mg) by mouth once daily. 90 tablet 5Active furosemide (Lasix) 20 mg tablet Indications:Essential hypertensionTake 1 tablet (20 mg) by mouth once daily. 90 tablet 5Active rosuvastatin (Crestor) 40 mg tablet Indications:Mixed hyperlipidemiaTake 1 tablet (40 mg) by mouth once daily. 90 tablet 5Active Symbicort 160-4.5 mcg/actuation inhaler Inhale 2 puffs every 12 hours.5Active Active Problems ProblemNoted DateDiagnosed UqcpYwahprvbuhgu80/17/2025 Assessment & Plan (01/12/2025 3:48 PM EDT): Reports fairly daily episodes of hearing my heart thumping going into my ears No prior documented A-fib or arrhythmia. 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 Assessment & Plan (03/06/2024 10:42 AM EDT): Reviewed the merits of healthy lifestyle choices on overall cardiovascular health. ASHD (arteriosclerotic heart disease)10/17/2023 Assessment & Plan (01/12/2025 3:47 PM EDT): March 09, 2023 Mid/proximal RCA PCI/[place] 4x15mm & 4x18mm Proximal diagonal PCI/[place] 2.5 x 18 mm LAD 10% Circumflex normal LVEF 65% February 2024 MPI ischemia, EF 88% Current daily activity at 4 METS without concerning symptoms Assessment & Plan (04/22/2024 11:58 AM EDT): March 09, 2023 Mid/proximal RCA PCI/[place] 4x15mm & 4x18mm Proximal diagonal PCI/[place] 2.5 x 18 mm LAD 10% Circumflex normal LVEF 65% February 2024 MPI ischemia, EF 88% Current daily activity at 4 METS without concerning symptoms Assessment & Plan (03/06/2024 10:41 AM EDT): March 09, 2023 Mid/proximal RCA PCI/[place] 4x15mm & 4x18mm Proximal diagonal PCI/[place] 2.5 x 18 mm LAD 10% Circumflex normal LVEF 65% Essential yegwfjompcuf43/20/2023 Assessment & Plan (01/12/2025 3:46 PM EDT): Optimal in office Assessment & Plan (04/22/2024 11:58 AM EDT): Optimal in the office Assessment & Plan (03/06/2024 10:41 AM EDT): Optimal in office Shortness of yjgrvj3410/17/20234428PMLPZ72/20/2023Former sfzsco5310/17/2023 Immunizations ImmunizationAdministration DatesNext DueFlu vaccine, trivalent, preservative free, HIGH-DOSE, age 65y+ (Fluzone)07/16/2024,08/03/2017Pneumococcal conjugate vaccine, 13-valent (PREVNAR 13)09/13/2015Pneumococcal polysaccharide vaccine, 23-valent, age 2 years and older (PNEUMOVAX 23)08/11/2010Zoster vaccine, recombinant, adult (SHINGRIX)05/21/2021Zoster, live07/22/2021 Family History Medical HistoryRelationNameCommentsCancerBrotherCancerFatherheart problemFather CancerMotherCancerSisterRelationNameStatusCommentsBrotherFatherMotherSister Social History Tobacco UseTypesPacks/DayYears UsedDateSmoking Tobacco: FormerCigarettesQuit: 1980Smokeless Tobacco: Never Tobacco Cessation:Counseling Given: Not Answered Alcohol UseStandard Drinks/WeekCommentsNever0 (1 standard drink = 0.6 oz pure alcohol)CommentsUnknownSex and Gender InformationValueDate RecordedSex Assigned at BirthNot on fileLegal VbtEcpqky22/08/2023 12:05 PM EDTGender IdentityNot on fileSexual OrientationNot on file Last Filed Vital Signs Vital SignReadingTime TakenCommentsBlood Nriepgxk118/60003/17/2025 10:42 AM EDT Vqpsk4832/17/2025 11:10 AM EDTTemperature--Respiratory Rate--Oxygen Saturation-- Inhaled Oxygen Concentration--Iqeyvj01.7 kg (200 lb)03/17/2025 10:42 AM EDT Zyajsb483.1 cm (5' 5 )03/17/2025 10:42 AM EDTBody Mass Index33.28003/17/2025 10:42 AM EDT Plan of Treatment DateTypeDepartmentCare Team (Latest Contact Info)Qzbznftyenz25/30/2025 11:00 AM EDTOffice Visit [address] [phone] Edinson Perry, DO [address] [place] [address] 2, [address] [address] 10/27/2025 2:10 PM ESTOffice Visit [address] [phone] Edinson Perry, DO [address] [place] [address] 2, [address] [place] [address] Health MaintenanceDue DateLast DoneCommentsCreatinine Level1942Lipid Panel 1942Medicare Annual Wellness Visit (AWV)2Potassium Level 2Diabetes Tasneizux25/20/1960DTaP/Tdap/Td Vaccines (1 - Tdap)1964 Bone Density Scan2007RSV High Risk: (Elderly (60+) or Population) (1 - 1-dose 75+ series)2017Zoster Vaccines (2 of 2)109/, 05/21/2021Influenza Vaccine (#1)/, 08/03/2017COVID-19 Vaccine (4 - season)501/04/2025, 09/15/2022, 01/28/2022Echocardiogram , 02/08/2023neumococcal JihzismVwqipnhdj78/16/2015, 08/11/2010HIB VaccinesAged OutNo longer eligible based on patient's age to complete this topicHPV VaccinesAged OutNo longer eligible based on patient's age to complete this topicHepatitis A VaccinesAged OutNo longer eligible based on patient's age to complete this topicHepatitis B VaccinesAged OutNo longer eligible based on patient's age to complete this topicIPV VaccinesAged OutNo longer eligible based on patient's age to complete this topicMeningococcal VaccineAged OutNo longer eligible based on patient's age to complete this topic Rotavirus VaccinesAged OutNo longer eligible based on patient's age to complete this topic Procedures Procedure NamePriorityDate/TimeAssociated DiagnosisCommentsTRANSTHORACIC ECHO (TTE) YYNDGSVRCosnwav37/20/2025 11:35 AM EDT Essential hypertension Palpitations from Last 3 Months or Most Recently Relevant to Health Maintenance Results * TRANSTHORACIC ECHO (TTE) COMPLETE (03/17/2025 11:35 AM EDT)ComponentValueRef RangeTest MethodAnalysis TimePerformed AtPathologist SignatureAV mn kdiq1xfOl SYNGOAV pk vel1.40m/sSYNGOLV Biplane EF55%SYNGOLVOT diam2.06cmSYNGOMV E/A ratio1.48SYNGOMV avg E/e' ratio17.94SYNGOLA vol index A/L42.1ml/r7XIABPQP EF63 %SYNGORV free wall pk S'16.27cm/nHXUMNZDVP57.6smOcDGJTWOZPNo3.11cmSYNGOAortic Valve Area by Continuity of Peak Velocity1.66wd9MKSBCBW pk sgix7uhYaEOFUE Aortic Valve Area by Continuity of VTI2.64la1YHPQJZH A4C EF64.6SYNGOSpecimen (Source)Anatomical Location / LateralityCollection Method / VolumeCollection TimeReceived Time03/17/2025 10:43 AM EDT Narrative SYNGO - 03/18/2025 6:52 PM EDT ?[address], [place] [address] ? TRANSTHORACIC ECHOCARDIOGRAM REPORT Patient Name: ?LASHAUN WHALEY ? Reading Physician: ?[id number] Bryce ?Malena MANCINI, ?FACC Study Date: ?03/17/2025 ?Ordering Provider: ?[id number] HOLDEN Lambert ?JOSSUE MRN/PID: ? [id number] ? Fellow: Accession#: ?[id number] ? Nurse: Date of /Age: ?? 1940 / 84 ?Medical Office Technologist: ?Nicolasa Tobias ? years ?RDCS, RVT Gender Assigned at ?? F ?Additional Staff: : Height: ?165.10 cm ?Admit Date: Weight: ?90.72 kg ? Admission Status: BSA / BMI: ? 1.98 m2 / 33.28 ?Department Location: ??[facility] ? kg/m2 ?Heart Kevin Blood Pressure: 120 /64 mmHg Study Type: ?TRANSTHORACIC ECHO (TTE) COMPLETE Diagnosis/ICD: Essential (primary) hypertension-I10; Palpitations-R00.2 Indication: ?CAD, PTCA-2022, Edema, Hyperlipidemia, Former Smoker CPT Codes: ? Echo Complete w Full Doppler-12618 Study Detail: The following Echo studies were performed: 2D, M-Mode, Doppler and ?color flow. PHYSICIAN INTERPRETATION: Left Ventricle: Left ventricular [...] no changes. QUANTITATIVE DATA SUMMARY: 2D MEASUREMENTS: ? Normal Ranges: Ao Root s: ? 2.80 cm LAs: ? 3.98 cm ? (2.7-4.0cm) RVIDd: ? 3.57 cm ? (0.9-3.6cm) IVSd: ?1.19 cm ? (0.6-1.1cm) LVPWd: ? 1.00 cm ? (0.6-1.1cm) LVIDd: ? 4.11 cm ? (3.9-5.9cm) LVIDs: ? 2.48 cm LV Mass Index: ?? 76.1 g/m2 LVEDV Index: ? 32.34 ml/m2 LV % FS ?39.6 % LEFT ATRIUM: ? Normal Ranges: LA Vol A4C: ? 76.2 ml ?(22+/-6mL/m2) LA Vol A2C: ? 84.3 ml LA Vol BP: ?83.3 ml LA Vol Index A4C: 38.5ml/m2 LA Vol Index A2C: 42.6 ml/m2 LA Vol Index BP: ??42.1 ml/m2 LA Vol A4C: ? 72.3 ml LA Vol A2C: ? 80.4 ml LA Vol Index BSA: 38.6 ml/m2 LV SYSTOLIC FUNCTION: ? Normal Ranges: EF-A4C View: 65 % (>=55%) EF-A2C View: ?44 % EF-Biplane: ? 55 % EF-Visual: ?63 % LV EF Reported: 63 % LV DIASTOLIC FUNCTION: ? Normal Ranges: MV Peak E: ? 1.19 m/s ??(0.7-1.2 m/s) MV Peak A: ? 0.81 m/s ??(0.42-0.7 m/s) E/A Ratio: ? 1.48 ?(1.0-2.2) MV e' 0.067 m/s (>8.0) MV lateral e' ?0.08 m/s MV medial e' ? 0.05 m/s E/e' Ratio: 17.94 (<8.0) MITRAL VALVE: ?Normal Ranges: MV Vmax: 1.28 m/s (<=1.3m/s) MV peak P.5 mmHg (<5mmHg) MV mean P.6 mmHg (<48mmHg) MV VTI: ? 38.74 cm (10-13cm) MV DT: ?243 msec (150-240msec) MITRAL INSUFFICIENCY: ? Normal Ranges: MR Vmax: ?628.07 cm/s dP/dt: 876 mmHg/s (>1200mmHg/sec) AORTIC VALVE: ? Normal Ranges: AoV Vmax: 1.40 m/s (<=1.7m/s) AoV Peak P.9 mmHg (<20mmHg) AoV Mean PG: ? 4.4 mmHg (1.7-11.5mmHg) LVOT Max Juan Antonio: 0.84 m/s (<=1.1m/s) AoV VTI: ? 37.80 cm (18-25cm) LVOT VTI: ?24.05 cm LVOT Diameter: ? 2.06 cm ??(1.8-2.4cm) AoV Area, VTI: ? 2.13 cm2 (2.5-5.5cm2) AoV Area,Vmax: ? 1.99 cm2 (2.5-4.5cm2) AoV Dimensionless Index: 0.64 RIGHT VENTRICLE: RV Basal 2.77 cm RV Mid ?? 2.60 cm RV Major 5.3 cm RV s' ?0.16 m/s TRICUSPID VALVE/RVSP: ?Normal Ranges: Peak TR Velocity: ? 2.67 m/s RV Syst Pressure: 31 mmHg (< 30mmHg) IVC Diam: ? 2.13 cm PULMONIC VALVE: ?Normal Ranges: RVOT Vmax: ?0.71 m/s (0.6-0.9m/s) AORTA: Asc Ao Diam 2.73 cm [id number] Bryce Guy MD, [facility] Electronically signed on 03/18/2025 at 6:52:27 PM Final Procedure Note Bryce Guy MD - 03/18/[address], [address] [address] TRANSTHORACIC ECHOCARDIOGRAM REPORT Patient Name: LASHAUN Doherty Physician: [id number] Zurita [facility] Study Date: 03/17/2025 Ordering Provider: [id number] ROSADO MRN/PID: [id number] Fellow: Nurse: Date of /Age: 11 1940 / Medical Office Technologist: Carlos Eduardo taylor RDCS,RVT Gender Assigned at F Additional Staff: : Height: 165.10 cm Admit Date: Weight: 90.72 kg Admission Status: BSA / BMI: 1.98 m2 / 33.28 Department Location: [facility]/[address] Blood Pressure: 120 /64 mmHg Study Type: TRANSTHORACIC ECHO (TTE) COMPLETE Diagnosis/ICD: Essential (primary) hypertension-I10; Palpitations-R00.2 Indication: CAD, PTCA-2022, Edema, Hyperlipidemia, Former Smoker CPT Codes: Echo Complete w Full Doppler-93100 Study Detail: The following Echo studies were [...] (0.6-0.9m/s) AORTA: Asc Ao Diam 2.73 cm [id number] Bryce Guy MD, [facility] Electronically signed on 03/18/2025 at 6:52:27 PM Final Authorizing ProviderResult TypeResult StatusHolden Rosado IRONER OR PRESSER-CNPCV ECHO PROCEDURESFinal ResultPerforming OrganizationAddressCity/State/ZIP CodePhone Number SYNGO from Last 3 Months or Most Recently Relevant to Health Maintenance Insurance Care Teams Team MemberRelationshipSpecialtyStart DateEnd Nathan Bateman DO [address] [place] [address] PCP - GeneralInternal Medicine03/09/25
--- OUTSIDE RECORDS SUMMARY | 2025-08-18 06:28 | XMS_ITS | Clinical Summary ---
Author Organization [facility] Address [address] [place] [address], [place] [id number] Care Team Providers Care Medical Office Administrator Name Role Phone Nathan Bateman DO Primary Care Provider [phone] Allergies Active AllergyReactionsCriticalityNoted MhkfArrplroyTunchotsnmmQwoevnl13/08/2024 QatpnmgfdsLzqubkr27/29/2021ulfamethoxazole-GxfnrsoarpamMlifbyx28/29/2021 Codeine-YmsmepbabjnFycaoxz72/29/2021oxycycline AprehufKgszsrk48/29/2021 WenqsnbiycOelwmzi38/29/2021Iodine And Iodide Containing ProductsUnknown 01/19/2021 08/04/22 confirmed with patient that she is not allergic to CT contrast and has had it previously without issues or premeds. QrcotrogaxptNspgtvv94/29/5488VkxfxmtlfrsAnfobro63/29/2021seudoephedrineUnknown 10/29/2019Sulfa (Sulfonamide Antibiotics)Rash,Ekhvpvm7903/08/2023Tetanus And Diphtheria QhftsaoEwngqsz63/29/6341WvqmboehwoqonXlbxtwe21/29/2021Trimethoprim Htfzifm4803/09/20236091EydbofqrgnoMplvmtn92/29/2021 Medications MedicationSigDispense QuantityRefillsLast FilledStart DateEnd DateStatus temazepam (RESTORIL) 15 mg Take by mouth at bedtime as needed.Active ALPRAZolam (XANAX) 0.25 mg tablet Take 0.25 mg by mouth three times daily as needed.Active GABAPENTIN ORAL Take 100 mg by mouth twice daily.Active pantoprazole DR (PROTONIX) 40 mg tablet 07/05/2021ctive aspirin 81 mg cap Take by mouth.Active clopidogrel (PLAVIX) 75 mg tablet TAKE 8 TABLETS BY MOUTH ON DAY ONE THEN TAKE 1 TABLET BY MOUTH DAILY05/09/2023 Active furosemide (LASIX) 20 mg tablet Take 20 mg by mouth two times a day.05/23/2023ctive potassium chloride (K-TAB) 10 mEq tablet Take 10 mEq by mouth two times a day.04/26/2023ctive NIFEdipine ER (PROCARDIA XL) 30 mg 24 hr tablet Take 30 mg by mouth.02/20/2024ctive valsartan (DIOVAN) 80 mg tablet Take 80 mg by mouth.tive rosuvastatin (CRESTOR) 40 mg tablet Take 40 mg by mouth.tive Active Problems ProblemNoted DateDiagnosed DateAnemia in stage 3b chronic kidney disease 07/30/2025 Encounters DateTypeDepartmentCare NczsWdbhemahujh85/15/2025Telephone Hematology/Oncology [address] [place] [address] [place] [address] Silvia Nick, REFRIGERATOR CAR ICER.BELTING CUTTER additional lab omfmeo4207/13/2025Orders Only Hematology/Oncology [address] [place] [address] [place] [address] Valentin Myers MD Abnormal SPEP (Primary Dx); Anemia in other chronic diseases classified elsewhere; 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)07/10/2025Telephone Cancer Appts [address] [place] [address] Valentin Myers MD Orders; Patient Gpktre6707/10/2025Results Follow-Up Hematology/Oncology [address] [place] [address] [place] [address] Laly Petit PA-C 07/08/2025 10:00 AM EDTVisit (SP) Office Hematology/Oncology [address] [place] [address] [place] [address] Silvia Nick, REFRIGERATOR [employer].BELTING CUTTER Abnormal SPEP (Primary Dx); Primary hypertension; Hyperlipidemia, unspecified hyperlipidemia type; Heart disease; Edema, unspecified type; Monoclonal gammopathy of undetermined significance; Anemia in other chronic diseases classified ddmopjjen14/10/2025Telephone Cancer Appts [facility] [place] [address] Silvia Nick, REFRIGERATOR CAR IC[employer].BELTING CUTTER Jbjlxeb9207/08/20257575Ffvbrg80/08/2025Telephone Hematology/Oncology [address] [place] [address] Silvia Nick, REFRIGERATOR [employer]ELTING CUTTER Lab Orders (nt)07/03/2025H&P External-NonCCF Provider, External, GALLO from Last 3 Months Immunizations ImmunizationAdministration DatesNext DueAS03 /11/2019,08/13/2018COVID- original vaccine, age 12+ yr, monovalent (PFIZER-BIONTECH - PURPLE TOP) 07/30/2021,12/18/2020,11/27/2020OVID original vaccine, age 5 yr - 11 yr, monovalent (PFIZER-BIONTECH)09/15/2022OVID- original vaccine, full dose, monovalent (MODERNA)11/27/2020OVI vaccine, age 12+ yr, bivalent (PFIZER-BIONTECH)09/15/2022influenza (HD-IIV3) vaccine, age 65+ yr, high dose, trivalent, PF (FLUZONE HIGH-DOSE)07/16/2024,08/03/2017influenza (HD-IIV4) vaccine, age 65+ yr, high dose, quadrivalent, PF (FLUZONE HIGH-DOSE)07/19/2021 influenza (aIIV3) vaccine, age 65+ yr, trivalent, PF (FLUAD)07/09/2019, 08/13/2018influenza vaccine, split virus08/11/2022,07/18/2021,08/11/2020, 08/13/2018,08/03/2017,07/13/2016,08/17/2015pneumococcal conjugate (PCV13) vaccine, 13 valent (PREVNAR 13)09/13/2015pneumococcal polysaccharide (PPV23) vaccine, 23 valent (PNEUMOVAX 23)08/11/2010tetanus diphtheria (Td) vaccine, age 7+ yr, 5 Lf tetanus, PF (TENIVAC)07/16/2014,07/09/2013zoster (RZV) vaccine, recombinant (SHINGRIX)05/21/2021zoster (ZVL) vaccine, live (ZOSTAVAX)07/22/2021, 05/21/2021 Family History Medical HistoryRelationCommentsColon CancerBrother 1Lung CancerBrother 1Lung CancerBrother 2CancerFatherLymphomaMotherLeukemiaSisterMultiple SclerosisSister RelationStatusCommentsBrother 1Brother 2AliveFatherMotherSister Social History Tobacco UseTypesPacks/DayYears UsedDateSmoking Tobacco: FormerCigarettes Smokeless Tobacco: NeverAlcohol UseStandard Drinks/WeekCommentsNot Currently0 (1 standard drink = 0.6 oz pure alcohol)PHQ-2AnswerDate RecordedPHQ-2 score0 3Area Deprivation IndexAnswerDate RecordedNational Score (1-100), lower number is lower rsaf832006/04/2023State Score (1-10), lower number is lower risk8 3Data from: https://www.neighborhoodatlas.[facility].edu/. Last address used for fmhyzgciaak[address]CommentsNoSex and Gender InformationValueDate RecordedSex Assigned at BirthNot on fileLegal Sex Vqwlta4009/29/2012 10:14 AM ESTGender IdentityNot on fileSexual OrientationNot on file Last Filed Vital Signs Vital SignReadingTime TakenCommentsBlood Tlvbdmao448/68007/08/2025 10:09 AM EDT recheck BP kkvpeccbZfbrw1503/10/2025 10:01 AM VQPErcrxezticp38 ??C (96.8 ??F) 07/08/2025 10:01 AM EDTRespiratory Xafd920407/08/2025 10:01 AM EDTOxygen Lwjsnmfpqh46%07/08/2025 10:01 AM EDTInhaled Oxygen Concentration--Pkrmee62.8 kg (202 lb 6.1 oz)07/08/2025 10:01 AM MLOUwqppt565.4 cm (5' 5.51 )07/08/2025 10:01 AM EDTBody Mass Index33.15007/08/2025 10:01 AM EDT Plan of Treatment DateTypeDepartmentCare Team (Latest Contact Info)Kfewjtspoco58/10/2025 2:45 PM ESTOffice Visit [facility] [address] [place] [address] 3 month ELDON with lab10/07/2025 3:00 PM ESTVisit (SP) Office Hematology/Oncology [address] [place] [address] Valentin Myers MD [address] [place] [address] [place] [address] 3 month ELDON with labHealth MaintenanceDue DateLast DoneCommentsAnxiety Screening 1960Depression Diavokwos41/20/1960Medicare Annual Wellness Visit08/29/2007 Bone Density Ymtfrracf09/20/2007DTaP,Tdap,Td Vaccine (1 - Tdap)07/17/2014 07/16/2014, 07/09/2013RSV Vaccine (1 - 1-dose 75+ series)2017Shingrix Vaccine (3 of 3)/, 05/21/2021, 05/21/2021dvance Directive Vqcgzelkvz43/01/2025Covid-19 Vaccine ( season)/04/2025, 09/15/2022, 09/15/2022, Additional history existsInfluenza Vaccine (#1) 509/, 08/11/2022, 07/19/2021, Additional history existsDiabetes Oejscgilv72/, 07/08/2025, 03/05/2024, Additional history exists Pneumococcal Vaccine: 50+Dyoslgcdo06/16/2015, 08/11/2010Cologuard (FIT-DNA) Qgukueocknve66/28/2019Colorectal Cancer ScreeningDiscontinuedCT Colonography DiscontinuedColonoscopyDiscontinuedFecal Occult BloodDiscontinuedSigmoidoscopy Discontinued Procedures Procedure NamePriorityDate/TimeAssociated DiagnosisCommentsFOLATE SERUMRoutine 07/15/2025 10:03 AM EDT Abnormal SPEP Anemia in other chronic diseases classified elsewhere VITAMIN B12 YOYEEGkfgdak25/17/2025 10:03 AM EDT Abnormal SPEP Anemia in other chronic diseases classified elsewhere FERRITIN SWAVhklwsy10/17/2025 10:03 AM EDT Abnormal SPEP Anemia in other chronic diseases classified elsewhere IRON + KWHOFroxhng75/17/2025 10:03 AM EDT Abnormal SPEP Anemia in other chronic diseases classified elsewhere COMPREHENSIVE METABOLIC KRDRNCybzdiz28/17/2025 10:03 AM EDT Abnormal SPEP Anemia in other chronic diseases classified elsewhere CBC + JEULFjlxpli79/17/2025 10:03 AM EDT Abnormal SPEP Anemia in other chronic diseases classified elsewhere ERYTHROPOIETIN/LWJVuwtkiy13/17/2025 10:03 AM EDT Abnormal SPEP Anemia in other chronic diseases classified elsewhere 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 LYFHRTESFurtyje22/17/2025 10:03 AM EDT Abnormal SPEP Anemia in other chronic diseases classified elsewhere KAPPA/BOWLES,FREE,XTRRmykyzk06/10/2025 9:56 AM EDT Abnormal SPEP IMMUNOFIXATION SCREEN, JHCAEAtoqeud93/10/2025 9:56 AM EDT Abnormal SPEP IMMUNOGLOBULINS DLGTkufhnz95/10/2025 9:56 AM EDT Abnormal SPEP PROTEIN TOTAL VUEWwybqws03/10/2025 9:56 AM EDT Abnormal SPEP PROTEIN ELECTROPHORESIS SERUM (P)Yiwykah2007/08/2025 9:56 AM EDT Abnormal SPEP MONOCLONAL PROTEIN, SERUM (BLOOD)Ekbdmva5607/08/2025 9:56 AM EDT Abnormal SPEP PROTEIN ELECTROPHORESIS SERUM W/AHVELKPxmtbxh73/10/2025 9:56 AM EDT Abnormal SPEP COMPREHENSIVE METABOLIC GUFWMOuflycz60/10/2025 9:56 AM EDT Abnormal SPEP CBC + ZFIBDjwizlb40/10/2025 9:56 AM EDT Abnormal SPEP EXTERNAL LAB07/03/2025 1:45 PM EDT EXTERNAL LAB07/03/2025 1:45 PM EDT EXTERNAL LAB07/03/2025 1:45 PM EDT EXTERNAL FPNFLOC4207/03/2025 1:45 PM EDT from Last 3 Months Results * 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 ANALYSIS (07/15/2025 10:03 AM EDT)ComponentValueRef Range Test MethodAnalysis TimePerformed AtPathologist IknafajygNXA38 L265P Mutation WdntoaXTB79 L265P MUTATION ANALYSIS Laboratory Accession Number: [id number] Sample Type: Peripheral Blood Result: 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 L265P is highly characteristic of [...] presence or absence of the L265P (c.794T>C, p.Atz365Bvt; g.34644609; [id number]) variant (mutation) in MYD88 gene (NM_002468.4) using [...] MYD88 mutations in human lymphoma. Nature 2011. 470(3430):115-9. 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 Am J Clin Pathol. 2013. 140(3):387-94. 3) Obi SP, Spencer L, Brooks G, et al. MYD88 L265P somatic mutation in Waldenstrom's macroglobulinemia. N Engl J Med. 2012. 367(3)656-33. 4) Gage WagonerQ, Juan J MADDEN, Ariel LL, Horcait K. Toll-like receptors and cancer: MYD88 mutation and inflammation. Front Immunol. 2014 May 28;367(5):1-10. 5) Nery X, Francy W, Maykel Q, et al. MYD88 L265P Mutation in Lymphoid Malignancies. Cancer Res. 2018. 78(10):0969-19. Disclaimer: This test was developed and its performance characteristics determined by [facility]'s Pathology and Laboratory Medicine Department. It has not been cleared or approved by the FDA. [facility]'s Pathology and Laboratory Medicine Department is regulated under CLIA as certified to perform high-complexity testing. This test is used for clinical purposes. It should not be regarded as investigational or for research. Test performed at [facility], [address] [place] [address]. CLIA Number: [id number] Interpretation performed by Natalee Bolanos, PhD, [facility]07/17/2025 4:30 PM EDT ILLUMINA CLARITY LIMSSpecimen (Source)Anatomical Location / LateralityCollection Method / VolumeCollection TimeReceived TimeBloodBLOOD SPECIMEN / Unknown Venipuncture / Nwxmixd5207/15/2025 10:03 AM EDT07/15/2025 10:03 AM EDT Narrative Authorizing ProviderResult TypeResult StatusValentin Myers MDLABORATORYFinal ResultPerforming OrganizationAddressCity/State/[facility] CodePhone Number [facility] [place] [address] [place] [phone], [place] * (ABNORMAL) VITAMIN B12 (07/15/2025 10:03 AM EDT)ComponentValueRef RangeTest MethodAnalysis TimePerformed AtPathologist SignatureVitamin B121,457(H)232 - 1,245 pg/mL07/16/2025 12:14 AM [facility] LABSpecimen (Source)Anatomical Location / LateralityCollection Method / VolumeCollection TimeReceived TimeBloodBLOOD SPECIMEN / UnknownVenipuncture / Pszvrma9407/15/2025 10:03 AM EDT07/15/2025 10:03 AM EDT Narrative Authorizing ProviderResult TypeResult StatusVivenatalie Myers MDLABORATORYFinal ResultPerforming OrganizationAddressCity/State/ZIP CodePhone Number [facility] [address] [place] [phone], [place] * IRON AND TIBC (07/15/2025 10:03 AM EDT)ComponentValueRef RangeTest Method Analysis TimePerformed AtPathologist JmwuvjhonIbrc4361 - 186 ug/dL07/15/2025 11:41 PM EDTCMARTINS FERRY [facility] PMLKGXX103021 - 386 ug/dL07/15/2025 11:41 PM EDTCMART[facility] FERR[facility] LABTransferrin Tsyqdrvppp94.615.0 - 57.0 %07/15/2025 11:41 PM EDTCMARTINS FERRY [facility] LABSpecimen (Source) Anatomical Location / LateralityCollection Method / VolumeCollection Time Received TimeBloodBLOOD SPECIMEN / UnknownVenipuncture / Pflzcae6207/15/2025 10:03 AM EDT07/15/2025 10:03 AM EDT Narrative Authorizing ProviderResult TypeResult StatusValentin Myers MDLABORATORYFinal ResultPerforming OrganizationAddressCity/State/ZIP CodePhone Number [facility] [address] [place] [phone], [place] * FOLATE, SERUM (07/15/2025 10:03 AM EDT)ComponentValueRef RangeTest Method Analysis TimePerformed AtPathologist AklabdcnfVpqjdo60.5>4.7 ng/mL07/16/2025 12:14 AM EDUN[facility] LABSpecimen (Source)Anatomical Location / LateralityCollection Method / VolumeCollection TimeReceived Time BloodBLOOD SPECIMEN / UnknownVenipuncture / Yadzwkl5107/15/2025 10:03 AM EDT 07/15/2025 10:03 AM EDT Narrative Authorizing ProviderResult TypeResult StatusVivenatalie Myers MDLABORATORYFinal ResultPerforming OrganizationAddressty/State/ZIP CodePhone Number [facility] [address] [place] [phone], [place] * FERRITIN (07/15/2025 10:03 AM EDT)ComponentValueRef RangeTest MethodAnalysis TimePerformed AtPathologist RotfwrvdyDfxqhlrw128.014.7 - 205.1 ng/mL07/16/2025 12:14 AM EDTCMARTINS FERRY [facility] LABSpecimen (Source)Anatomical Location / LateralityCollection Method / VolumeCollection TimeReceived Time BloodBLOOD SPECIMEN / UnknownVenipuncture / Hjtiaap6607/15/2025 10:03 AM EDT 07/15/2025 10:03 AM EDT Narrative Authorizing ProviderResult TypeResult StatusValentin Myers MDLABORATORYFinal ResultPerforming OrganizationAddressCity/State/ZIP CodePhone Number [facility] [address] [place] [address], [place] * (ABNORMAL) ERYTHROPOIETIN/EPO (07/15/2025 10:03 AM EDT)ComponentValueRef Range Test MethodAnalysis TimePerformed AtPathologist CnutyvqykVpisfdfzqyklku33.4(H) 2.6 - 18.5 mIU/mL07/16/2025 11:30 AM EDTCMARTINS FERRY [facility] Specimen (Source)Anatomical Location / LateralityCollection Method / Volume Collection TimeReceived TimeBloodBLOOD SPECIMEN / UnknownVenipuncture / Qzpcmuu5407/15/2025 10:03 AM EDT07/15/2025 10:03 AM EDT Narrative [facility] - 07/16/2025 11:30 AM EDT Test analyzed by the [employer] Engine DxI method. Authorizing ProviderResult TypeResult StatusValentin Myers MDLABORATORYFinal ResultPerforming OrganizationAddressCity/State/ZIP CodePhone Number [facility] [address] [place] [phone], * (ABNORMAL) COMPREHENSIVE METABOLIC PANEL (07/15/2025 10:03 AM EDT) Only the most recent of2 resultswithin the time period is included. ComponentValueRef RangeTest MethodAnalysis TimePerformed AtPathologist Signature Protein, Total5.9(L)6.3 - 8.0 g/dL07/15/2025 11:06 AM EDTNORTHCO[facility] LABAlbumin3.7(L)3.9 - 4.9 g/dL07/15/2025 11:06 AM EDTNORTHCOAST [facility] LABCalcium, Total9.08.5 - 10.2 mg/dL07/15/2025 11:06 AM EDTNORTHCOAST [facility] LABBilirubin, Total0.30.2 - 1.3 mg/dL 07/15/2025 11:06 AM EDTNORTHCOAFRESEN[facility] LABAlkaline Phosphatase 4534 - 123 U/L07/15/2025 11:06 AM [facility]TNORTMCLAREN [facility] GXSIQY22 13 - 35 U/L07/15/2025 11:06 AM [facility] MEQCAV979 - 38 U/L07/15/2025 11:06 AM [facility] INXGyiuenw311(H) 74 - 99 mg/dL07/15/2025 11:06 AM [facility] Comment: The [place] Diabetes Association (ADA) provides guidance for cutoff [...] Standards of Medical Care in Diabetes 2016, [place] Diabetes Association. Diabetes Care. 2016.39(Suppl 1). BUN32(H)7 - 21 mg/dL07/15/2025 11:06 AM [facility] Creatinine1.64(H)0.58 - 0.96 mg/dL07/15/2025 11:06 AM [facility] MSFMmajdj142840 - 144 mmol/L07/15/2025 11:06 AM [facility] LABPotassium4.73.7 - 5.1 mmol/L07/15/2025 11:06 AM T [facility] GTFUfzrmxss14256 - 107 mmol/L07/15/2025 11:06 AM [facility] UFVLU96610 - 30 mmol/L07/15/2025 11:06 AM [facility] LABAnion Imj732 - 15 mmol/L07/15/2025 11:06 AM [facility] LABEstimated Glomerular Filtration Rate31(L)>=60 mL/min/1.73m 07/15/2025 11:06 AM [facility] LABComment:Estimated Glomerular Filtration Rate (eGFR) is calculated using the 2020 CKD-EPI creatinine equation. This equation utilizes serum creatinine, sex, and age as parameters. The creatinine assay has traceable calibration to isotope dilution- mass spectrometry. Refer to KDIGO guidelines for clinical interpretation. In patients with unstable renal function, e.g. those with acute kidney injury, the eGFRmay not accurately reflect actual GFR.Specimen (Source)Anatomical Location / LateralityCollection Method / VolumeCollection TimeReceived TimeBloodBLOOD SPECIMEN / UnknownVenipuncture / Ovdupay7907/15/2025 10:03 AM EDT07/15/2025 10:03 AM EDT Narrative Authorizing ProviderResult TypeResult StatusVivek Lucia MANCINILABORATORYFinal ResultPerforming OrganizationAddressCity/State/ZIP CodePhone Number [facility] [address] [place] [phone] * (ABNORMAL) COMPLETE BLOOD COUNT AND DIFFERENTIAL (07/15/2025 10:03 AM EDT) Only the most recent of2 resultswithin the time period is included. ComponentValueRef RangeTest MethodAnalysis TimePerformed AtPathologist Signature WBC6.283.70 - 11.00 k/uL07/15/2025 10:18 AM [facility] LABRBC3.09(L)3.90 - 5.20 m/uL07/15/2025 10:18 AM [facility] LABHemoglobin8.9(L)11.5 - 15.5 g/dL07/15/2025 10:18 AM [facility]TS[facility] KSOBappzlojkb95.6(L)36.0 - 46.0 %07/15/2025 10:18 AM EDT [facility] PDBYQN35.380.0 - 100.0 fL07/15/2025 10:18 [facility] HWECDB76.826.0 - 34.0 pg07/15/2025 10:18 AM [facility] SYKSDKM25.230.5 - 36.0 g/dL07/15/2025 10:18 AM [facility] LABRDW-CV13.511.5 - 15.0 %07/15/2025 10:18 AM [facility] LABPlatelet Bycdc269348 - 400 k/uL 07/15/2025 10:18 AM [facility] LABMPV9.99.0 - 12.7 fL 07/15/2025 10:18 AM [facility] LABNeutrophils %73.5% 07/15/2025 10:18 AM [facility] LABAbs Neut4.621.45 - 7.50 k/uL07/15/2025 10:18 AM [facility] LABLymphocytes %12.3%07/15/2025 10:18 AM [facility] LABAbs Lymph0.77 (L)1.00 - 4.00 k/uL07/15/2025 10:18 AM [facility] Monocytes %10.4%07/15/2025 10:18 AM [facility] LABAbs Mono0.65<0.87 k/uL07/15/2025 10:18 AM [facility] Eosinophils %2.5%07/15/2025 10:18 AM [facility] LABAbs Eosin0.16<0.46 k/uL07/15/2025 10:[facility] Basophils %0.8%07/15/2025 10:18 [facility] LABAbs Baso0.05<0.11 k/uL07/15/2025 10:18 AM [facility] Immature Granulocytes %0.5%07/15/2025 10:18 [facility] LABAbs Immature Gran0.03<0.10 k/uL07/15/2025 10:18 AM [facility]TNORTMCL[facility] LABNRBC0.0/100 WBC07/15/2025 10:18 AM [facility]TS[facility] LABAbsolute nRBC<0.01<0.01 k/uL07/15/2025 10:18 AM EDT [facility] LABDiff QlbtQbwk30/17/2025 10:18 AM EDT [facility] LABSpecimen (Source)Anatomical Location / LateralityCollection Method / VolumeCollection TimeReceived TimeBloodBLOOD SPECIMEN / UnknownVenipuncture / Rqaljlg0207/15/2025 10:03 AM EDT07/15/2025 10:03 AM EDT Narrative Authorizing ProviderResult TypeResult StatusValentin Myers MDLABORATORYFinal ResultPerforming OrganizationAddressCity/State/ZIP CodePhone Number [facility] [address] [place] [address] * (ABNORMAL) IMMUNOFIXATION SCREEN, SERUM (07/08/2025 9:56 AM EDT)ComponentValue Ref RangeTest MethodAnalysis TimePerformed AtPathologist SignatureMPA ResultA poorly defined region of restricted mobility is present that may represent an M protein.(A)No M protein is identified.07/10/2025 9:40 AM [facility] LABInterpretation (MPA)Poorly defined region of restricted mobility in [...] further for monoclonal gammopathy. Clinical correlation is necessary.07/10/2025 9:40 AM [facility] LABStaff Review (MPA)Reviewed by Dr. Jennifer David MD07/10/2025 9:40 AM EDT [facility] LABSpecimen (Source)Anatomical Location / LateralityCollection Method / VolumeCollection TimeReceived TimeBloodBLOOD SPECIMEN / UnknownVenipuncture / Exgddmp1707/08/2025 9:56 AM EDT07/08/2025 9:56 AM EDT Narrative Authorizing ProviderResult TypeResult StatusFanny Long APRN.CNPLABORATORYFinal ResultPerforming OrganizationAddressCity/State/ZIP CodePhone Number [facility] [address] [place] [address], * (ABNORMAL) PROTEIN ELECTROPHORESIS SERUM (P) (07/08/2025 9:56 AM EDT)Component ValueRef RangeTest MethodAnalysis TimePerformed AtPathologist SignatureAlbumin for SPE3.33(L)3.43 - 5.41 g/dL07/10/2025 8:41 AM [facility] LABAlpha 1 Globulin0.420.18 - 0.43 g/dL07/10/2025 8:41 AM [facility] LABAlpha 2 Globulin0.860.42 - 0.98 g/dL07/10/2025 8:41 AM [facility] LABBeta Globulin0.53(L)0.61 - 1.17 g/dL 07/10/2025 8:41 AM [facility] LABGamma Globulin0.37(L) 0.53 - 1.51 g/dL07/10/2025 8:41 AM [facility] Interpretation (Prot Electro)No definitive M protein is identified on protein electrophoresis.No definitive M protein is identified on protein electrophoresis.07/10/2025 8:41 AM [facility] Interpretation Comment for Protein ElectrophoresisHypogammaglobulinemia is present, which can be seen in the setting of monoclonal gammopathy. If clin ically indicated, monoclonal protein analysis and serum free light chain analysis are suggested to evaluate further for monoclonal gammopathy. 07/10/2025 8:41 AM [facility] LABM-Protein Location 07/10/2025 8:41 AM [facility] LABComment:Not Applicable. M-Protein Concentration0.00<=0.00 g/dL07/10/2025 8:41 AM [facility] LABSPE Staff ReviewReviewed by Dr. Jennifer David MD07/10/2025 8:41 AM [facility] LABSpecimen (Source)Anatomical Location / LateralityCollection Method / VolumeCollection TimeReceived TimeBloodBLOOD SPECIMEN / UnknownVenipuncture / Rrpqhss0807/08/2025 9:56 AM EDT07/08/2025 9:56 AM EDT Narrative [facility] - 07/10/2025 8:41 AM EDT Serum electrophoresis test was performed using the [employer] V8 NEXUS capillary electrophoresis method. Results obtained with different assay methods or kits cannot be used interchangeably. Authorizing ProviderResult TypeResult StatusJaimee Ethan REFRIGERATOR CAR ICER.CNPLABORATORYFinal ResultPerforming OrganizationAddressCity/State/ZIP CodePhone Number [facility] [address] [place] [phone], * (ABNORMAL) KAPPA/BOWLES,FREE,SER (07/08/2025 9:56 AM EDT)ComponentValueRef Range Test MethodAnalysis TimePerformed AtPathologist SignatureKappa Free, Serum 300.9(H)3.3 - 19.4 mg/L07/09/2025 4:57 PM [facility] Comment: Rarely, increased serum free light chains levels may not be detected or accurately quantified due to prozone phenomenon or in high viscosity samples using this immunoturbidimetric assay. Correlation with other laboratory results and clinical findings is recommended. The [place] Free Light Chain was performed using the Binding Site Optilite immunoturbidimetric method. Result obtained with different assay methods or kits cannot be used interchangeably. Lambda Free, Serum23.85.7 - 26.3 mg/L07/09/2025 4:57 PM [facility] LABComment: Rarely, increased serum free light chains levels may not be detected or accurately quantified due to prozone phenomenon or in high viscosity samples using this immunoturbidimetric assay. Correlation with other laboratory results and clinical findings is recommended. The Lambda Free Light Chain was performed using the Binding Site Optilite immunoturbidimetric method. Result obtained with different assay methods or kits cannot be used interchangeably. ?? K/L Ratio, Serum12.64(H)0.26 - 1.6509/08/2025 4:57 PM [facility] LABSpecimen (Source)Anatomical Location / LateralityCollection Method / VolumeCollection TimeReceived TimeBloodBLOOD SPECIMEN / UnknownVenipuncture / Ptxnvpt7407/08/2025 9:56 AM EDT07/08/2025 9:56 AM EDT Narrative Authorizing ProviderResult TypeResult StatusFnany Long APRN.CNPLABORATORYFinal ResultPerforming OrganizationAddressty/State/ZIP CodePhone Number [facility] [place] [phone], [place] * (ABNORMAL) PROTEIN, TOTAL (07/08/2025 9:56 AM EDT)ComponentValueRef RangeTest MethodAnalysis TimePerformed AtPathologist SignatureProtein, Total5.5(L)6.3 - 8.0 g/dL07/08/2025 11:42 PM [facility] LABSpecimen (Source)Anatomical Location / LateralityCollection Method / VolumeCollection TimeReceived TimeBloodBLOOD SPECIMEN / UnknownVenipuncture / Mumwmpi4507/08/2025 9:56 AM EDT07/08/2025 9:56 AM EDT Narrative Authorizing ProviderResult TypeResult StatusFanny Long APRN.CNPLABORATORYFinal ResultPerforming OrganizationAddMoses Taylor Hospitalty/State/ZIP CodePhone Number [facility] [address] [place], [place] [phone], [place] * (ABNORMAL) IMMUNOGLOBULINS,IGG,IGA,IGM (07/08/2025 9:56 AM EDT)ComponentValue Ref RangeTest MethodAnalysis TimePerformed AtPathologist WpkpkojtoSyA139(L)700 - 1,600 mg/dL07/08/2025 7:41 PM [facility] ZBSHwW57(L)70 - 400 mg/dL07/08/2025 7:41 PM [facility] UUPWgS149(H)40 - 230 mg/dL07/08/2025 7:41 PM [facility] LABSpecimen (Source)Anatomical Location / LateralityCollection Method / VolumeCollection TimeReceived TimeBloodBLOOD SPECIMEN / UnknownVenipuncture / Mhgihhi5807/08/2025 9:56 AM EDT07/08/2025 9:56 AM EDT Narrative Authorizing ProviderResult TypeResult StatusCooperimepatricia Long APRN.CNPLABORATORYFinal ResultPerforming OrganizationAddressCity/State/ZIP CodePhone Number [facility] [address] [facility] [address] [place] [address], * EXTERNAL LAB (07/03/2025 1:45 PM EDT) Only the most recent of3 resultswithin the time period is included. Narrative Authorizing ProviderResult TypeResult StatusExternal Provider PA-CLABORATORY Final Result * EXTERNAL IMAGING (07/03/2025 1:45 PM EDT)Anatomical RegionLateralityModality Other Narrative Authorizing ProviderResult TypeResult StatusExternal Provider PA-CRADIOLOGYFinal Result from Last 3 Months Insurance Advance Directives TypeDate RecordedPatient RepresentativeExplanationAdvance Directive(s)08/01/2021 12:55 PMAdvance Directives Care Teams Team MemberRelationshipSpecialtyStart DateEnd Date Nathan Bateman DO PCP - GeneralInternal Medicine01/31/12
--- OUTSIDE RECORDS SUMMARY | 2025-08-18 06:28 | XMS_ITS | Clinical Summary ---
Author Organization [facility] Address [address] [place] [address] Care Team Providers Care Nuclear Instructor Name Role Phone Nathan Bateman DO Primary Care Provider Allergies Active AllergyReactionsCriticalityNoted ChfrMylwdlrqUhstgehpaev74/08/2024 Other Reaction(s): Unknown Pakiblmfxa43/29/2021 Other Reaction(s): Unknown, Unknown Reaction VhaolyejmgxmIhhedxam08/20/2023 Other Reaction(s): rash Tongue swelling Blyuaco1402/13/2024 Other Reaction(s): Unknown Reaction Osrrnzwtzcd50/29/2021 Other Reaction(s): Rash, Unknown, Unknown Reaction Sulfamethoxazole-HnluaqjoxaulRfdkv83/29/2021 Other Reaction(s): Unknown Medications MedicationSigDispense QuantityRefillsLast FilledStart DateEnd DateStatus albuterol HFA 90 mcg/act inhaler 01/31/2024ctive ALPRAZolam (Niravam) 0.25 MG disintegrating tablet Take 0.25 mg by mouth as needed at bedtimeActive furosemide (Lasix) 20 MG tablet Take 20 mg by mouth in the morning and 20 mg in the evening.05/18/2023ctive gabapentin (Neurontin) 100 MG capsule Take 100 mg by mouth in the morning and 100 mg in the evening.Active losartan (Cozaar) 50 MG tablet 02/17/2024ctive NIFEdipine XL (Procardia XL) 30 MG 24 hr tablet Take 30 mg by mouth in the morning.02/20/2024ctive pantoprazole (ProtoNix) 40 MG EC tablet Take 40 mg by mouth in the morning. Take before meals.Active potassium chloride CR (Klor-Con) 10 MEQ ER tablet Take 10 mEq by mouth in the morning and 10 mEq in the evening.Active rosuvastatin (Crestor) 40 MG tablet Take 40 mg by mouth in the morning.02/06/2024ctive Entresto 24-26 MG tablet Take 1 tablet by mouth in the morning and 1 tablet in the evening.02/20/2024 Active temazepam (Restoril) 15 MG capsule Take 15 mg by mouth as needed at bedtimeActive clopidogrel (Plavix) 75 MG tablet 06/16/2024ctive triamcinolone (Kenalog) 0.1 % oral paste 01/31/2024ctive triamcinolone (Kenalog) 0.5 % cream 01/31/2024ctive Anoro Ellipta 62.5-25 MCG/ACT aerosol powder USE 1 INHALATION BY MOUTH DAILY02/12/2025tive Active Problems ProblemNoted DateDiagnosed WebiHszbztxerfhf47/17/2025bnormal cardiovascular stress test11/24/2024 Overview (11/24/2024): Problem List clean-up per request of Phys. EHR Cmte Adrenal otbvud9111/24/20248727Rhekaf05/27/2025trophic khjektish12/27/2025ervical spondylosis with spwqqlxhldvbi48/27/2025hronic arncopjbgw29/27/2025hronic heart failure with preserved ejection fraction (HFpEF)11/24/2024 Overview (11/24/2024): - LHC w/ PCI/stent LAD, RCA (Feb, 2023) - Echo w/ LVEF 60%, ELY, normal RV size/function, RVSP 41 - 01/2024 Chronic obstructive pulmonary disease with (acute) sdqyqzhmgybp09/27/2025hronic venous ewcajazxmqbbi20/27/2025Elevated serum immunoglobulin free light chain level11/24/2024Flash pulmonary edema11/24/2024 Overview (11/24/2024): Problem List clean-up per request of Phys. EHR Cmte OMAR (generalized anxiety disorder)11/24/2024Gastroesophageal reflux disease with esophagitis without lzsftborzn96/27/2025Heart admsvcj6511/24/2024 Overview (11/24/2024): Problem List clean-up per request of Phys. EHR Cmte Dry eyes04/28/2024Epiretinal membrane (ERM) of left eye04/28/2024lepharitis of upper and lower eyelids of both eyes04/28/2024MI 33.0-33.9,adult03/05/2024SHD (arteriosclerotic heart disease)10/17/2023 Overview (11/24/2024): C w/ PCI/stent LAD, RCA (Feb, 2023) COVID10/17/2023Essential ytjgouikhdpv02/20/2023 Overview (11/24/2024): Problem List clean-up per request of Phys. EHR Cmte Former jngfrm3810/17/2023 Family History RelationNameStatusCommentsFatherDeceasedMotherDeceased Social History Tobacco UseTypesPacks/DayYears UsedDateSmoking Tobacco: FormerCigarettesQuit: 1993Smokeless Tobacco: Never Tobacco Cessation:Counseling Given: Not Answered CommentsUnknownSex and Gender InformationValueDate RecordedSex Assigned at BirthNot on fileLegal HnvRinukh07/15/2023 7:00 PM EDTGender IdentityNot on fileSexual OrientationNot on file Last Filed Vital Signs Vital SignReadingTime TakenCommentsBlood Xtsofwqq895/59002/25/2025 8:46 AM EDT Vscms5426/30/2025 8:46 AM EDTTemperature--Respiratory Rate--Oxygen Saturation-- Inhaled Oxygen Concentration--Oxsmma66.5 kg (195 lb)02/25/2025 8:46 AM EDTHeight 165.1 cm (5' 5 )02/25/2025 8:46 AM EDTBody Mass Index32.45002/25/2025 8:46 AM EDT Plan of Treatment DateTypeDepartmentCare Team (Latest Contact Info)Nuctenwnbfd88/28/2025 9:10 AM EDTOffice Visit [facility] [address] [place] [address] Gladys Wright MD [address] [place] [address] Health MaintenanceDue DateLast DoneCommentsInfluenza Vaccine (#1)06/29/2025 07/16/2024, 08/06/2023, 08/11/2022, Additional history existsPneumococcal Vaccine: 65+ AfsopEdrdxlflv95/16/2015, 08/11/2010 Insurance Care Teams Team MemberRelationshipSpecialtyStart DateEnd Date Nathan Bateman DO [address] [place] [address] PCP - GeneralInternal Medicine02/10/25
--- OUTSIDE RECORDS SUMMARY | 2025-08-18 06:29 | XMS_ITS | CCD ---
Author Organization [facility] CliniSyva Care Team Providers Care Director Learning Services Name Role Phone Nathan Hathaway DO Primary [...] Provider DO Nathan Hathaway Primary Care Provider [phone] Nathan Hathaway Unavailable [place], Dr. Edinson Hinojosa Attending Darleneva jen Hathaway, Dr. Nathan Maxwell Primary Care Ericka Perry, Dr. Edinson Hinojosa Attending Aura Perry, Dr. Edinson Hinojosa Referring Aura Hathaway, Dr. Nathan Maxewll Primary Care Unavai lable Ch, DO Fernando Emergency Provider [phone] DO Lj Ryan Admit Provider [phone] Connor, DO Lj Wagoner Attending Provider Fransico REILLY, Nathan Whitlock Primary Care Provider Fransico REILLY, Nathan Whitlock Primary Care Provider Ball, DO Evans Primary Care Provider THONY Rosado Attending Provider Fransico DO, Nathan Whitlock Primary Care Provider Nathan Hathaway MD Unavailable Fransico REILLY, Nathan Primary Care Provider Fransico REILLY, Nathan Attending Provider [phone] Nathan Hathaway DO Primary Care Provider Fransico REILLY, Nathan Primary Care Provider Fransico REILLY, Nathan Attending Provider [phone] Nathan Hathaway MD Primary Care Provider [...] Care Provider Fransico REILLY, Nathan Attending Provider [phone] Nathan Hathaway DO Primary Care Provider [phone] Fransico REILLY, Nathan Attending Provider [phone] BALL, NATHAN E Primary Care Unavailable SONJA PAOLO Attending Unavailable BALL, NATHAN E Primary Care Unavailable BALL, NATHAN E Referring Unavailable BALL, NATHAN E Primary Care Unavailable BALL, NATHAN E Referring Unavailable BALL, NATHAN E Primary Care Unavailable BALL, NATHAN E Referring Unavailable Fanny Bedoya APRN Attending Provider Valentin Leonard MD, V Attending Provider [phone] Shelbi CASTRO-C, Kaia Campos Attending Provider [phone] Allergies Allergy ClassificationReported Allergen(s)Allergy TypeDate of OnsetReaction(s) Facility (20 sources)amLODIPine; Translations: [AMLODIPINE]Drug Zyhqcxt06-83-0388Iemmuwy [facility] (12 sources)Codeine / guaiFENesin; Translations: [CODEINE-GUAIFENESIN]Drug Xzgqxgh99-35-9198HclrstpTbriigjfy Clinic (12 sources)Doxycycline; Translations: [DOXYCYCLINE HYCLATE]Drug Allergy 75-37-3322OdmyaheEuivgwsyr Clinic (20 sources)DULoxetine; Translations: [DULOXETINE]Drug Ckmyuuo16-83-4307Npzzxev [facility] (20 sources)levoFLOXacin; Translations: [LEVOFLOXACIN]Drug Vosyrgj83-98-6427 [facility] (20 sources)Ondansetron; Translations: [ONDANSETRON]Drug Glyerqg05-47-9358 [facility]ronComment on above:Onset Date: 10/29/2019 (20 sources)Penicillins; Translations: [PENICILLINS]Propensity to adverse reactions to yysg62-64-6999ZsiahmnNtcochaum Clinic (20 sources)Sulfamethoxazole / Trimethoprim; Translations: [Bactrim]Drug Allergy 74-19-1656GncaocfK[facility]tering [facility] (8 sources)Tetracycline (class of antibiotic); Translations: [TETRACYCLINES] Propensity to adverse reactions to apqw22-17-3415RndmirtNinojtcit Clinic (12 sources)Iodine And Iodide Containing Products; Translations: [IODINE AND IODIDE CONTAINING PRODUCTS]Drug Ufctmhn33-40-2242SnardpuAtctamthh Clinic (20 sources)Tetanus And Diphtheria Toxoids; Translations: [TETANUS AND DIPHTHERIA TOXOIDS]Propensity to adverse reactions to bsit86-29-6785Vqhngud [facility] (20 sources)AmoxicillinDrug Msbumwq85-12-0167[employer], Unknown [facility] (20 sources)Codeine / guaiFENesinDrug AllergyEle[facility] ind[facility]bt Other (20 sources)DoxycyclineDrug Xpkelqe45-73-9965Biaicha, Unknown [facility] (20 sources)levoFLOXacinDrug AllergyEleanor [facility] indidebt Other (20 sources)Ondansetron; Translations: [Zofran]Drug Iwxxaac54-60-2811GevcacxIqaCincinnati [facility] (20 sources)Tetanus-Diphtheria Toxoids TdDrug allergyEleanor Slater [facility] indidebt Other (20 sources)AllopurinolDrug Tachbyr79-80-3838LqbnjomOloCincinnati Shriners Hospital Repository (1 source)amLODIPineDrug Uhonttz99-90-5463OcvWilson [facility] Rep[facility] (1 source)DoxycyclineDrug AllergyWilson Health Repository (1 source)DULoxetineDrug Ysddtwh23-33-3045BtzWilson Health Repository (1 source)Iodine (And Iodine Containting Drugs)Drug allergy (disorder)01-19-2021 [facility] Repository (1 source)Sulfamethoxazole / TrimethoprimDrug Dhgoszw18-44-2004WblWilson Health Repository (9 sources)Sulfonamides (Antibiotic); Translations: [SULFA (SULFONAMIDE ANTIBIOTICS)]Allergy to yfwnlenmn58-38-1488Ipat, [facility] (16 sources)SulfamethoxazoleDrug Hzihtsu79-76-6975FjgpeohPike Community Hospital (8 sources)Trimethoprim; Translations: [TRIMETHOPRIM]Drug Hnnfwkq48-32-6394 [facility] (20 sources)Pseudoephedrine; Translations: [PSEUDOEPHEDRINE]Drug Allergy 47-39-9085VeermahCqsjy [place] indidebt Other (20 sources)TetracyclineDrug AllergyEleanor [facility] indidebt Other (20 sources)Cheratussin AC *COUGH/COLD/ALLERGY*Propensity to adverse reactions 85-85-0097ZchjwhrXdgkg [place] indidebt Other (20 sources)Zofran *ANTIEMETICS*Propensity to adverse rzwbxopfz79-48-6983Dadqyke [place] indidebt Other (5 sources)amLODIPineDrug AllergyEleanor [facility] indidebt Other (20 sources)Azithromycin; Translations: [AZITHROMYCIN]Drug Thrjteu44-51-4434 rash, SwellingK[facility]tering [facility] (20 sources)CodeineDrug Axdvhzp99-49-1459Hkvcdya ReactionKettering Health [facility] Township (15 sources)guaiFENesinDrug Rtaznzp90-42-4838LntroylHenry County Hospital (15 sources)12 Hour DecongestantAllergy to eifglgquo23-36-1618Iffwiip Reaction [facility] TownshipComment on above:Onset Date: 10/29/2019 (15 sources)Cheratussin AC *COUGH/COLD/ALLAllergy to honayalrq50-42-3269Jkwjxuf [facility] CenterComment on above:Free Text Allergy: Cheratussin AC *COUGH/COLD/ALLERGY*; Onset Date: 10/29/2019 (8 sources)PenicillinsDrug Hpgggtzubub65-02-8328BFDE [facility] (4 sources)PenicillinsPropensity to adverse reactions to eddr94-91-2391ZqtrcjwParkwood Hospital (4 sources)TetracyclinesPropensity to adverse reactions to bvjm35-50-4213GeltxdnParkwood Hospital (1 source)Allopurinol; Translations: [ALLOPURINOL]Drug Fnjnsoo20-89-6896 [facility] Repository Medications Current Medications MedicationDrug Class(es)DatesSig (Normalized)Sig (Original)AeroChamber Mini Chamber - (5 sources)Start: 33-27-5459LzdbOppaand Mini Chamber - Use with MDI every 6 hours as needed inhaled every 6 hours as needed for30 days Mar, Active [id number] 200 actuat albuterol 0.09 mg/actuat metered dose inhaler (20 sources)beta2-Adrenergic AgonistStart: 56-12-9749qmqizemwd HFA 90 mcg/act inhaler 01/31/2024 ActiveStart: 33-46-3759tdnzptasc HFA 90 mcg/act inhaler Every 6 hours 01/31/2024 ActiveStart: 01-31-2024 End: 57-81-9697ktmg 1 puff(s) by inhalation every six hours as needed for wheezingAlbuterol Sulfate 90 mcg/actuation HFA aerosol inhaler Active 2 PUFF INHALATION Every 6 hours as needed for shortness of breath or wheezing 8.5 November 26, 2024 10:19am Complies with drug therapyStart: 59-41-3445cflt 2 puff(s) by inhalation every six hours as needed for coughAlbuterol Sulfate HFA 108 (90 Base) MCG/ACT 2 puff Inhalation every 6 hours as needed for cough, SOB Mar, ActiveStart: 13-26-9084owcc 2 puff(s) by inhalation every six hours as needed for coughAlbuterol Sulfate HFA 108 (90 Base) MCG/ACT 2 puff Inhalation every 6 hours as needed for cough, SOB Mar, ActiveStart: 30-97-9181kywh 2 puff(s) by inhalation every six hours as needed for cough Albuterol Sulfate HFA 108 (90 Base) MCG/ACT 2 puff Inhalation every 6 hours as needed for cough, SOB Mar, ActiveStart: 20-16-4401hmct 2 puff(s) by inhalation every four hours as needed for coughAlbuterol Sulfate HFA 108 (90 Base) MCG/ACT 2 puffs as needed Inhalation every 4 hrs for As needed for cough or wheeze February, Not-Takingazithromycin 250 mg oral tablet (10 sources)Macrolide AntimicrobialStart: 12-95-9214Vycdowhuctmj 250 MG as directed Orally daily for 5 days Aug, ActiveStart: 04-26-2023 Azithromycin 250 MG as directed Orally daily for 5 days Mar, Ezvumq93 actuat budesonide 0.16 mg/actuat / formoterol fumarate 0.0045 mg/actuat metered dose inhaler (20 sources)Corticosteroid, beta2-Adrenergic AgonistStart: 75-32-8290ejvf 2 puff(s) by inhalation every twelve hoursSymbicort 160-4.5 mcg/actuation inhaler Inhale 2 puffs every 12 hours. 12/31/2024 ActiveStart: 12-29-2024 End: 46-89-4507ljeq 1 puff(s) by inhalation every twelve hoursBudesonide- Formoterol 160-4.5 mcg/actuation HFA aerosol inhaler Discontinued 2 PUFF INHALATION Every 12 hours 30.6 December 31, 2024 10:25am February 12, 2025 7:24li439 actuat budesonide 0.16 mg/actuat / formoterol fumarate 0.0048 mg/actuat / glycopyrrolate 0.009 mg/actuat metered dose inhaler (1 source)Corticosteroid, beta2-Adrenergic AgonistStart: 19-27-5817uume 2 puff(s) by inhalation twice dailyBreztri Aerosphere 160-9-4.8 MCG/ACT 2 puffs Inhalation Twice a day Sample Apr, Activebumetanide 1 mg oral tablet (7 sources)Loop DiureticStart: 82-12-5472lkrh 1 tablet by mouth twice daily Bumetanide 1 mg tablet Active 1 MG PO Twice daily 60 July 06, 2025 6:16pm Complies with drug therapyStart: 06-19-2025 End: 57-86-1568aure 1 tablet by mouth twice dailyBumetanide 0.5 mg tablet Discontinued 0.5 MG PO Twice daily 60 July 03, 2025 12:14pm July 06, 2025 6:18pmclopidogrel 75 mg oral tablet (20 sources)P2Y12 Platelet InhibitorStart: 33-18-3159gbna 1 tablet by mouth once dailyClopidogrel 75 mg tablet Active 0 .ROUTE .COMPLEX July 07, 2025 7:34am TAKE 1 TABLET BY MOUTH DAILY Complies with drug therapyStart: 05-09-2023 End: 90-57-4217ahpl 1 tablet by mouth once dailyClopidogrel 75 mg tablet Discontinued 75 MG PO Daily May 17, 2023 12:00am June 16, 2024 11:42am Start: 05-09-2023 End: 90-30-6243mgkudsnzdfk (PLAVIX) 75 mg tablet TAKE 8 TABLETS BY MOUTH ON DAY ONE THEN TAKE 1 TABLET BY MOUTH DAILY 05/09/2023 ActiveComment on above:TAKE 8 TABLETS BY MOUTH ON DAY ONE THEN TAKE 1 TABLET BY MOUTH DAILYcodeine phosphate 2 mg/ml / guaiFENesin 20 mg/ml oral solution (6 sources)Opioid AgonistStart: 66-26-1174cqcx 10 mL by mouth four times daily as needed for coughguaiFENesin-Codeine 100-10 MG/5ML 10 mL as needed Orally qid as needed for cough for 7 days Activeenteric contrast (will be provided with radiology test) (1 source)Start: 05-29-2022 End: 40-44-7900tzihyrf contrast (will be provided with radiology test) [...] enteric contrast guidelinesFluticasone-Salmeterol 115-21 MCG/ACT (16 sources)Start: 45-48-6791ewlp 2 puff(s) by inhalation twice daily Fluticasone-Salmeterol 115-21 MCG/ACT 2 puffs Inhalation Twice a day Apr, ActiveStart: 45-62-2627kzas 2 puff(s) by inhalation twice dailyFluticasone- Salmeterol 115-21 MCG/ACT 2 puffs Inhalation Twice a day for 30 days Apr, Activegabapentin 100 mg oral capsule (20 sources)Anti-epileptic AgentStart: 08-15-2024 End: 00-43-2555zyci 1 capsule by mouth twice dailyGabapentin 100 mg capsule Active 0 .ROUTE .COMPLEX 180 July 07, 2025 7:34am TAKE 1 CAPSULE BYMOUTH TWICE DAILY Complies with drug therapyStart: 03-08-2023 End: 06-33-3759eefg 1 capsule by mouth three times dailyGabapentin [...] with radiology test) (1 source)Start: 05-29-2022 End: 30-78-0588cn contrast (will be provided with radiology test) [...] 75 mg oral capsule (11 sources)Nitrofuran AntibacterialStart: 91-96-0641eadl 1 capsule by mouth every twelve hoursNitrofurantoin Monohyd Macro 100 MG 1 capsule with food Orally every 12 hrs for 5 days Jun,ctivepantoprazole 40 mg delayed release oral tablet (20 sources)Proton Pump InhibitorStart: 71-44-0489iuyz 1 tablet by mouth once daily at breakfastPantoprazole 40 mg tablet,delayed release (DR/EC) Active 0 .ROUTE .COMPLEX 90 November 18, 2024 8:28am TAKE 1 TABLET BY MOUTH DAILY ON AN EMPTY STOMACH FOLLOWED IN 1/2 HOUR BY BREAKFAST Complies with drug therapyStart: 07-05-2021 End: 99-98-0863bizy 1 tablet by mouth once daily in the morningPantoprazole 40 mg tablet,delayed release (DR/EC) Discontinued 40 MG PO Every morning March 08, 2023 12:00am November 18, 2024 8:28amPantoprazole Sodium 40 MG Oral Packet Take 1 tablet by mouth on a empty stomach Quantity: 0 Refills: 0 Ordered: 07-Mar-2023 DO ActivePantoprazole Sodium Not-Takingpotassium chloride 10 meq extended release oral tablet (20 sources)Start: 83-56-6173vpyi 1 tablet by mouth twice dailypotassium chloride (K-TAB) 10 mEq tablet Take 10 mEq by mouth two times a day. 04/26/2023 ActiveStart: 15-64-2240znzz 1 tablet by mouth once dailyPotassium Chloride 10 mEq tablet extended release Active 10 MEQ PO Daily February 12, 2025 12:00am Co mplies with drug therapyStart: 03-08-2023 End: 46-66-0067Ypndfrnsk Chloride 10 mEq tablet extended release Discontinued [...] mg oral tablet (20 sources)HMG-CoA Reductase InhibitorStart: 60-53-6864mbib 1 tablet by mouth once dailyRosuvastatin 40 mg tablet Active 0 .ROUTE .COMPLEX November 18, 2024 8:24am TAKE 1 TABLET BY MOUTH DAILY Complies with drug therapyStart: 56-21-0061jxoj 1 tablet by mouth once dailyRosuvastatin 40 mg tablet Active 0 .ROUTE .COMPLEX November 18, 2024 8:24am TAKE 1 TABLET BY MOUTH DAILYStart: 02-02-2024 End: 66-03-9059noyu 1 tablet by mouth once dailyRosuvastatin 40 mg tablet Discontinued 40 MG PO Daily 30 February 06, 2024 12:11pm November 18, 2024 8:24amtriamcinolone acetonide 5 mg/ml topical cream (20 sources)CorticosteroidStart: 77-87-8319ekdgxdvsdrfng (Kenalog) 0.5 % cream 01/31/2024 ActiveStart: 49-90-2964xtcilhzxhwzfp (Kenalog) 0.5 % cream Twice daily 01/31/2024 ActiveStart: 01-31-2024 End: 18-97-6877Scuouuikrrdnx Acetonide 0.5 % cream Discontinued 1 APPLIC TOPICAL Twice daily January 31, 2024 12:00am February 12, 2025 6:39amStart: 01-31-2024 End: 59-72-1047Xnkhorcsqiujm Acetonide 0.1 % paste Discontinued 1 APPLIC DENTAL January 31, 2024 12:00am February 12, 2025 6:39am 1 application do not rinse afterwards and avoid eating or drinking for 30 minutes Mouth/Throat Twice a day Start: 98-99-4972Wnpbycaqzqyim Acetonide 0.1 % 1 application do not rinse afterwards and avoid eating or drinking for 30 minutes Mouth/Throat Twice a day for 7 days Jul, ActiveStart: 63-59-0480Pzapqcgmehstu Acetonide 0.5 % 1 application Externally Two times a day for 14 days Mar, ActiveStart: 35-54-2019Quejqdhmqibkq Acetonide 0.5 % 1 application Externally Two times a day for 14 days Mar, ActiveUmeclidinium-Vilanterol (20 sources)Anticholinergic, beta2-Adrenergic AgonistStart: 84-02-2058Zwwcx: 65-59-8189Hpytsbnlznwd-Vilanterol (Anoro Ellipta) 62.5-25 mcg/actuation blister with device Active 1 INH INHALATION Daily 180 90 May 19, 2025 3:59pm Complies with drug therapyStart: 05-15-2025 End: 09-16-4480Rfjroowtypug-Vilanterol (Anoro Ellipta) 62.5-25 mcg/actuation blister with device Discontinued 1 INH INHALATION Daily 180 90 May 15, 2025 11:55am May 19, 2025 4:04pmStart: 03-19-2025 End: 91-76-3825Feuqxqyoyhrp-Vilanterol (Anoro Ellipta) 62.5-25 mcg/actuation blister with device Discontinued 1 INH INHALATION Daily 180 90 March 19, 2025 11:38am May 15, 2025 11:55amStart: 03-19-2025 End: 09-52-1854Zweujwrbrzqq-Vilanterol (Anoro Ellipta) 62.5-25 mcg/actuation blister with device Discontinued 1 INH INHALATION Daily 60 30 March 19, 2025 11:37am March 19, 2025 11:46amStart: 03-13-2025 End: 98-43-1080Tztlipynmfwd-Vilanterol (Anoro Ellipta) 62.5-25 mcg/actuation blister with device Discontinued 1 INH INHALATION Daily 60 March 13, 2025 9:43am March 13, 2025 1:43pmStart: 17-47-0047Qtiwr Ellipta 62.5-25 MCG/ACT aerosol powder USE 1 INHALATION BY MOUTH DAILY 02/12/2025 ActiveStart: 02-12-2025 End: 69-41-3123Xnmtkibekigt-Vilanterol (Anoro Ellipta) 62.5-25 mcg/actuation blister with device Discontinued 1 INH INHALATION Daily 60 30 February 12, 2025 12:00am March 13, 2025 1:20pmUmeclidinium-Vilanterol (Anoro Ellipta) 62.5-25 mcg/actuation blister with device (1 source)Start: 83-44-6368Uwoalhcjwqka-Vilanterol (Anoro Ellipta) 62.5-25 mcg/actuation blister with device Active 1 INH INHALATION Daily 180 90 March 19, 2025 11:38amvalsartan 80 mg oral tablet (17 sources)Angiotensin 2 Receptor BlockerStart: 10-08-2024 End: 09-13-0458pxnm 1 tablet by mouth once dailyValsartan 80 mg tablet Active 80 MG PO Daily 90 90 June 19, 2025 3:16pm Complies with drug therapy{20 (nirmatrelvir 150 MG Oral Tablet) / 10 (ritonavir 100 MG Oral Tablet) } Pack [Paxlovid 5-Day] (9 sources)Start: 00-46-4805hdbb 3 tablets by mouth every twelve hoursPaxlovid (300/100) 20 x 150 MG & 10 x 100MG 3 tablets Orally Twice a day for 5 days Jun, Active Completed/Discontinued Medications MedicationDrug Class(es)DatesSig (Normalized)Sig (Original)ALPRAZolam 0.25 mg oral tablet (20 sources)BenzodiazepineStart: 09-11-2024 End: 48-74-1328tfcn 1 tablet by mouth twice dailyAlprazolam 0.25 mg tablet Discontinued 0.25 MG PO Twice daily 180 90 January 29, 2025 10:19pm February 12, 2025 7:05amStart: 01-31-2024 End: 72-41-6224chfk 1 tablet by mouth every eight hours as needed for anxiety Alprazolam 0.25 mg tablet Discontinued 0.25 MG PO .q8hrs as needed for Anxiety January 31, 2024 10:33am September 11, 2024 3:20pmStart: 24-18-7555uzbn 1 tablet by mouth every eight hours as needed for anxietyALPRAZolam 0.25 MG TAKE 1 TABLET BY MOUTH EVERY 8 HOURS NEEDED FOR ANXIETY for 90 February, ActiveStart: 03-08-2023 End: 91-56-9662jziu 1 tablet by mouth three times daily [...] oral tablet (17 sources)Vitamin CStart: 03-08-2023 End: 31-50-4858oxum 1 tablet by mouth once dailyAscorbic Acid (Vitamin C) (Vitamin C) 500 mg Tablet Discontinued 500 MG PO Daily March 08, 2023 12:00am May 17, 2023 10:50amaspirin 81 mg oral tablet (20 sources)Platelet Aggregation Inhibitor, Nonsteroidal Anti-inflammatory Drug Start: 04-18-2023 End: 26-29-5271kqfj 1 capsule by mouth once dailyAspirin 81 mg capsule Discontinued 81 MG PO Daily February 12, 2025 12:00am March 19, 2025 11:46am Start: 03-07-2023 End: 70-05-5333aeme 1 tablet by mouth once daily in the morningAspirin 81 mg tablet,delayed release (DR/EC) Discontinued 81 MG PO Every morning February 27, 2024 10:00am December 16, 2024 11:47am every Mon, Wed, and FriComment on above:Take by mouth.benazepril (20 sources)Angiotensin Converting Enzyme InhibitorBenazepril HCl Not-Taking benzonatate 100 mg oral capsule (20 sources)Non-narcotic AntitussiveStart: 74-99-6718vhro 1 capsule by mouth every eight hoursBenzonatate 100 MG 1 capsule as needed Orally Three times a day for As needed for cough or wheeze February, Not-TakingbusPIRone (20 sources)busPIRone HCl Not-TakingCalcium Carbonate (9 sources) End: 01-40-5038ylrvqei carbonate (CALCIUM 600 ORAL) Take by mouth. 07/08/2025 Discontinued (Discontinued by another Health Care Provider)calcium carbonate (CALCIUM 600 ORAL) Take by mouth. Activecalcium carbonate (CALCIUM 600 ORAL) Take by mouth. 0 ActiveComment on above:Take by mouth.calcium carbonate 1500 mg / cholecalciferol 0.01 mg oral tablet (17 sources)Vitamin DStart: 03-08-2023 End: 96-71-7308yjck 1 tablet by mouth once dailyCalcium Carbonate-Vitamin D3 (Calcium 600 + D(3)) 600 mg-10 mcg (400 unit) Tablet Discontinued 1 TAB PO Daily March 08, 2023 12:00am May 17, 2023 10:50amcarvedilol 3.125 mg oral tablet (20 sources)alpha-Adrenergic Humaira, beta-Adrenergic BlockerStart: 04-20-2024 End: 72-81-5166sqenhyoejv (Coreg) 3.125 MG tablet 04/20/2024 11/25/2024 Discontinued (Therapy completed)Start: 02-11-2024 End: 48-26-9755ddvw 1 tablet by mouth twice daily at mealtimeCarvedilol 3.125 mg tablet Discontinued 0 .ROUTE .COMPLEX 180 February 11, 2024 7:04am February 25 10:53am TAKE 1 TABLET BY MOUTH TWICE DAILY WITH FOODStart: 05-18-2023 End: 45-44-6102Zwommwwgbk 3.125 mg tablet Discontinued 12.5 MG PO Twice daily May 18, 2023 11:38am May 18, 2023 2:48pm Please do not take if you are feeling lightheaded or have a blood pressure less than 120 systolic at home Start: 05-18-2023 End: 71-68-8797Mbnczycnms Discontinued 12.5 MG PO Twice daily May 18, 2023 11:38am May 18, 2023 2:48pm Please do not take if you are feeling lightheaded or have a blood pressure less than 120 systolic at homeStart: 05-18-2023 End: 12-45-8130yltp 1 tablet by mouth twice daily at mealtimeCarvedilol (Coreg) 12.5 mg tablet Discontinued 12.5 MG PO Twice daily May 18, 2023 12:00am January 31, 2024 10:34am must administer with a meal/foodStart: 02-14-2023 End: 19-47-8354qugd 1 tablet by mouth twice dailyCarvedilol 3.125 mg tablet Discontinued 3.125 MG PO Twice daily January 31, 2024 12:00am January 7:04amComment on above:TAKE 1 TABLET BY MOUTH TWICE A DAY WITH FOOD/MEALcefdinir 300 mg oral capsule (18 sources)Cephalosporin AntibacterialStart: 05-19-2025 End: 07-06-4297xzvz 1 capsule by mouth twice dailyCefdinir 300 mg capsule Discontinued 300 MG PO Twice daily 10 May 19, 2025 12:00am June 19, 2025 9:32amStart: 02-13-2024 End: 30-50-2438srxx 1 capsule by mouth twice dailyCefdinir 300 mg capsule Discontinued 300 MG PO Twice daily 14 7 February 13, 2024 12:00am February 26, 2024 10:49amFluticasone Propion-Salmeterol (20 sources)Corticosteroid, beta2-Adrenergic AgonistStart: 11-26-2024 End: 02-17-2033zdqy 1 puff(s) by inhalation every twelve hoursFluticasone Propion-Salmeterol (Advair Hfa) 115-21 mcg/actuation HFA aerosol inhaler Discontinued 2PUFF INHALATION Every 12 hours 12 November 26, 2024 10:19am February 12, 2025 6:38am On Hold: NoneStart: 73-94-2449mlwk 1 puff(s) by inhalation every twelve hoursFluticasone Propion-Salmeterol (Advair Hfa) 115-21 mcg/actuation HFA aerosol inhaler Active 2 PUFF INHALATION Every 12 hours 10 27November 26, 2024 10:19am On Hold: NoneStart: 77-88-2479mvwl 1 puff(s) by inhalation every twelve hoursFluticasone Propion-Salmeterol (Advair Hfa) 115-21 mcg/actuation HFA aerosol inhaler Active 2 PUFF INHALATION Every 12 hours 10 27November 26, 2024 9:19am On Hold: NoneStart: 05-17-2023 End: 56-87-2549xrqd 1 puff(s) by inhalation twice dailyFluticasone Propion- Salmeterol (Advair Hfa) 115-21 mcg/actuation HFA aerosol inhaler Discontinued 2 PUFF INHALATION Twice daily May 17, 2023 12:00am November 26, 2024 10:19am Start: 05-17-2023 End: 89-04-7480tqok 1 puff(s) by inhalation twice dailyFluticasone Propion- Salmeterol (Advair Hfa) 115-21 mcg/actuation HFA aerosol inhaler Discontinued 2 PUFF INHALATION Twice daily May 16, 2023 11:00pm November 26, 2024 9:19am Start: 43-13-2525khdb 1 puff(s) by inhalation twice dailyFluticasone Propion- Salmeterol (Advair Hfa) 115-21 mcg/actuation HFA aerosol inhaler Active 2 PUFF I NHALATION Twice daily May 16, 2023 11:00pmStart: 47-17-2540csfe 1 puff(s) by inhalation twice dailyFluticasone Propion-Salmeterol (Advair Hfa) 115-21 mcg/actuation HFA aerosol inhaler Active 2 PUFF INHALATION Twice daily May 17, 2023 12:00amStart: 94-11-4970rwhi 2 puff(s) by inhalation twice daily Fluticasone-Salmeterol 115-21 MCG/ACT 2 puffs Inhalation Twice a day Apr, Active End: 00-67-3796ztry 2 puff(s) by inhalation in the morningfluticasone-salmeterol (Advair) 45-21 MCG/ACT inhaler Inhale 2 puffs in the morning and 2 puffs before bedtime. Rinse mouth with water after use to reduce aftertaste and incidence of candidiasis. Do not swallow. 02/25/2025 Discontinued (Therapy completed) furosemide 20 mg oral tablet (20 sources)Loop DiureticStart: 10-06-2024 End: 03-83-8054Aesqfnmwky 20 mg tablet Discontinued 0 .ROUTE .COMPLEX 180 October 06, 2024 1:59pm November 5:28pm TAKE 1 TABLET BY MOUTH 1 TO 2 TIMES DAILY NEEDEDStart: 05-18-2023 End: 84-75-3854ycgx 1 tablet by mouth twice dailyFurosemide 20 mg tablet Discontinued 20 MG PO Twice daily December 23, 2024 2:16pm February 12, 2025 7:05amStart: 05-18-2023 End: 06-47-3277lidc 1 tablet by mouth three times weeklyFurosemide 20 mg tablet Discontinued 20 MG PO every other day May 18, 2023 11:38am October 06, 2024 2:00pm on even days 3 times a week. Goal weight is 195lbs, if you notice your weight trending up please take an extra dose as instructed by your PCP Start: 04-32-3538Jvpwikbwvq 20 MG Oral Tablet one tablet M, W, F Quantity: 36 Refills: 3 Ordered: 21-Mar-2023 Edinson Perry DO Start : 21-Mar-2023 Active new doseStart: 03-08-2023 End: 16-85-5757Nwdaxoovbu 20 mg tablet Discontinued 20 MG PO every other day March 08, 2023 12:00am May 18, 2023 11:39am on even days 3 times a weekStart: 03-08-2023 End: 03-32-0130zsky 1 tablet by mouth once dailyFurosemide 20 mg tablet Discontinued 20 MG PO Daily February 12, 2025 12:00am June 19, 2025 10:05am Furosemide 20 MG TAKE 1 TABLET BY MOUTH 1 TO 2 TIMES DAILY NEEDED for 90 Activeirbesartan 150 mg oral tablet (20 sources)Angiotensin 2 Receptor BlockerStart: 11-28-2022 End: 22-51-3399avis 1 tablet by mouth once daily in the morningIrbesartan 150 mg tablet Discontinued 150 MG PO Every morning March 08, 2023 12:00am February 27, 2024 10:37amtake 1 tablet by mouth twice dailyIrbesartan 150 MG 1 tablet Orally twice daily Activelevothyroxine sodium 0.075 mg oral tablet (16 sources)l-ThyroxineStart: 02-19-2024 End: 00-44-9661bnnq 1 tablet by mouth once dailyLevothyroxine 75 mcg tablet Discontinued 75 MCG PO Daily February 26, 2024 12:00am September 15, 2024 10:40amlosartan potassium 50 mg oral tablet (20 sources)Angiotensin 2 Receptor BlockerStart: 01-31-2024 End: 10-31-8335skah 1 tablet by mouth twice dailyLosartan 50 mg tablet Discontinued 50 MG PO Twice daily January 31, 2024 12:00am February 26, 2024 10: 53amStart: 99-63-0299jddn 1 tablet by mouth twice dailyLosartan Potassium 50 MG 1 tablet Orally twice daily May, Active End: 28-28-5512gzzp 1 tablet by mouth once dailylosartan (COZAAR) 100 mg tablet Take 100 mg by mouth once daily. 07/08/2025 Discontinued (Discontinued by another Health Care Provider)take 1 tablet by mouth once dailyLosartan Potassium 50 MG 1 tablet Orally Once a day for 90 days ActiveComment on above:Take 100 mg by mouth once daily.MULTI-VITAMIN ORAL (9 sources) End: 27-69-9149WTQVX-VITAMIN ORAL Take by mouth. 07/08/2025 Discontinued (Discontinued by another Health Care Provider)MULTI-VITAMIN ORAL Take by mouth. ActiveMULTI-VITAMIN ORAL Take by mouth. 0 ActiveComment on above:Take by mouth. Multivitamin preparation (7 sources)Start: 03-08-2023 End: 08-18-8019dgre 1 tablet by mouth once dailyMultivitamin Discontinued 1 TAB PO Daily March 08, 2023 12:00am May 17, 2023 10:50amStart: 60-41-9506tjjv 1 tablet by mouth once dailyMultivitamin Active 1 TAB PO Daily March 08, 2023 12:00amMultivitamin Tablet (10 sources)Start: 03-08-2023 End: 77-05-0587giaz 1 tablet by mouth once dailyMultivitamin Tablet Discontinued 1 TAB PO Daily March 08, 2023 12:00am May 17, 2023 10:50amStart: 03-08-2023 End: 66-27-6480gaho 1 tablet by mouth once dailyMultivitamin Tablet Discontinued 1 TAB PO Daily March 07, 2023 11:00pm May 17, 2023 9:50amNIFEdipine 30 mg osmotic 24 hr extended release oral tablet (20 sources)Dihydropyridine Calcium Channel BlockerStart: 02-20-2024 End: 11-46-7771lkwo 1 tablet by mouth once dailyNifedipine 30 mg tablet extended release 24hr Discontinued 30 MG PO Daily February 26, 2024 12:00am March 19, 2024 2:54pmStart: 71-51-0655emat 1 tablet by mouth every twenty-four hoursNIFEdipine ER (PROCARDIA XL) 30 mg 24 hr tablet Take 30 mg by mouth. 02/20/2024 Qrqwss11 hr nitroglycerin 0.2 mg/hr transdermal system (19 sources)Nitrate VasodilatorStart: 03-08-2023 End: 43-59-7293lclwm 0.2 mg transdermal route every hourNitroglycerin 0.2 mg/hr patch 24 hour Discontinued 0.2 MG TRANSDERML Daily March 08, 2023 12:00am May 17, 2023 10:50amStart: 03-08-2023 End: 58-90-6546Wgtmrulaykozn Discontinued 0.2 MG TRANSDERML Daily March 08, 2023 12:00am May 17, 2023 10:50amStart: 39-39-3755feewj 1 dose transdermal route once daily, then apply 1 dose transdermal route every twenty-four hours Nitroglycerin 0.2 MG/HR Transdermal Patch 24 Hour APPLY PATCH FOR 12 TO 14 HOURS DAILY, THEN REMOVEQuantity: 90 Refills: 3 Ordered: 07-Mar-2023 Edinson Perry DO Start : 07-Mar-2023 Active new startnystatin 093369 unt/ml oral suspension (4 sources)Polyene AntifungalStart: 02-16-2025 End: 37-33-9855ehho 1 mL by mouth four times dailyNystatin 100,000 unit/mL suspension Discontinued 5 ML PO Four times daily 140 7 February 16, 2025 12:00am March 19, 2025 11:47am swish for 30 seconds and swallowNystatin 100,000 unit/mL suspension (1 source)Start: 02-16-2025 End: 27-03-0563nsio 1 mL by mouth four times dailyNystatin 100,000 unit/mL suspension Discontinued 5 ML PO Four times daily 140 7 February 16, 2025 12:00am March 19, 2025 11:47am swish for 30 seconds and swallowpravastatin sodium 40 mg oral tablet (20 sources)HMG-CoA Reductase InhibitorStart: 03-08-2023 End: 54-37-4659skfw 1 tablet by mouth once daily in the eveningPravastatin 40 mg tablet Discontinued 40 MG PO Every evening March 08, 2023 12:00am February 012:10pmComment on above:Take 40 mg by mouth every evening.predniSONE 20 mg oral tablet (20 sources)Start: 66-25-8142jnnz 1 tablet by mouth every twelve hourspredniSONE 20 MG 1 tablet with food or milk Orally Twice a day for 3 day(s) February, Not-Takingpsyllium 400 mg oral capsule (4 sources)Start: 03-08-2023 End: 08-21-5563Yvobzkxs Husk (Metamucil) 0.4 gram Capsule Discontinued 0.4 GM PO Daily as needed for Constipation March 08, 2023 12:00am May 17, 2023 10:50am Psyllium Husk (Metamucil) 0.4 gram Capsule (13 sources)Start: 03-08-2023 End: 37-22-5615Qkbddtmv Husk (Metamucil) 0.4 gram Capsule Discontinued 0.4 GM PO Daily as needed for Constipation March 08, 2023 12:00am May 17, 2023 10:50am Start: 03-08-2023 End: 91-97-5603Miwabefe Husk (Metamucil) 0.4 gram Capsule Discontinued 0.4 GM PO Daily as needed for Constipation March 07, 2023 11:00pm May 17, 2023 9:50am Start: 03-08-2023 End: 45-18-6148Kisccobp Husk (Metamucil) 0.4 gram Capsule Discontinued 0.4 GM PO Daily March 08, 2023 12:00am 2022 10:50amStart: 13-79-2027Omxndraf Husk (Metamucil) 0.4 gram Capsule Active 0.4 GM PO Daily March 08, 2023 12:00am regadenoson (Lexiscan) injection 0.4 mg (1 source)Start: 03-12-2024 End: 40.4 mg, intravenous, Once, On Sun03/12/24 at 0915, For 1 dose rOPINIRole 0.25 mg oral tablet (20 sources)Nonergot Dopamine AgonistStart: 11-23-2022 End: 21-81-5969gqao 1 tablet by mouth once dailyRopinirole 0.25 mg tablet Discontinued 0.25 MG PO Daily 90 90 December 18, 2023 10:31am February 27, 2024 10:38amsacubitril 24 mg / valsartan 26 mg oral tablet (20 sources)Angiotensin 2 Receptor BlockerStart: 02-20-2024 End: 42-04-9563zwnk 1 tablet by mouth twice dailySacubitril-Valsartan (Entresto) 24-26 mg tablet Discontinued 1 TAB PO Twice daily February 26, 2024 12:00am March 19, 2024 2:54pmStart: 23-46-9730zyxj 1 tablet by mouth in the morningEntresto 24-26 MG tablet Take 1 tablet by mouth in the morning and 1 tablet in the evening. 02/20/2024 Activesulfamethoxazole 800 mg / trimethoprim 160 mg oral tablet (20 sources)Dihydrofolate Reductase Inhibitor Antibacterial, Sulfonamide AntimicrobialStart: 05-95-5623vfux 1 tablet by mouth every twelve hoursBactrim [...] mg oral capsule (20 sources)BenzodiazepineStart: 12-21-2022 End: 36-12-4499znaw 1 capsule by mouth once daily at bedtimeTemazepam 15 mg capsule Discontinued 15 MG PO Daily at bedtime March 08, 2023 12:00am June 13, 2024 2:15pmTemazepam Not-TakingComment on above:Take by mouth at bedtime as needed.ticagrelor 90 mg oral tablet (20 sources)Start: 03-09-2023 End: 66-20-3178wzpe 1 tablet by mouth twice dailyTicagrelor (Brilinta) 90 mg tablet Discontinued 90 MG PO Twice daily 180 March 09, 2023 12:00am May 17, 2023 2:07pm Problems Active Problems Problem ClassificationProblemDateDocumented DateEpisodic/ChronicAcute bronchitis (20 sources)Acute bronchitis; Translations: [Acute bronchitis, unspecified] Onset: 75-36-1666OngbvxpxImwnyzb disorders (20 sources)Generalized anxiety disorder; Translations: [Generalized anxiety disorder]Onset: 49-74-6891XyvuhspOpiabmm dysrhythmias (20 sources)Palpitations; Translations: [Bradycardia, unspecified]Onset: 49-92-6339QrgkrttoNwksatp kidney disease (18 sources)Chronic kidney disease; Translations: [Chronic kidney disease, unspecified]71-84-2829JpalrfwZhbsgeh obstructive pulmonary disease and bronchiectasis (20 sources)Simple chronic bronchitis; Translations: [Simple chronic bronchitis] Onset: 90-30-5206BqeivicMqanhrtcgj heart failure; nonhypertensive (20 sources)Acute on chronic diastolic heart failure; Translations: [Acute on chronic diastolic (congestive) heart failure]Onset: 17-36-3080JrsnkohCbrntok on above:- LHC w/ PCI/stent LAD, RCA [...] III; Translations: [Other and unspecified angina pectoris]Onset: 43-78-4000LjrzaccGdfkzuz on above:LHC w/ PCI/stent LAD, RCA (Feb, 2023)Problem List clean-up per request of Phys. EHR CmteDeficiency and other anemia (1 source)Anemia of chronic disease; Translations: [Anemia in other chronic diseases classified elsewhere]03-53-4202MelgwtyHujzcksffw and other anemia (1 source)Anemia in other chronic diseases classified elsewhere; Translations: [Anemia in other chronic diseases classified elsewhere]Onset: 00-85-8460Ceqimcm Deficiency and other anemia (20 sources)Anemia; Translations: [Anemia, unspecified]Onset: 11-24-2024 03-17-8076UexoxlqjHwjboarclc and other anemia (9 sources)Anemia, unspecified; Translations: [Anemia, unspecified]Onset: 56-15-1657OvbikemmWtqurbnj of mouth; excluding dental (20 sources)Stomatitis; Translations: [Other forms of stomatitis] Resolved: 01-77-2560HmykgvzcAorhsdjgq of lipid metabolism (20 sources)Pure hypercholesterolemia; Translations: [Familial hypercholesterolemia]Onset: 51-07-4863SwlurlaGmwlpbt on above:Problem List clean-up per request of Phys. EHR CmteE Codes: Adverse effects of medical drugs (20 sources)Adverse reaction to drug; Translations: [Adverse effect of unspecified drugs, medicaments and biological substances, subsequent encounter] EpisodicEsophageal disorders (20 sources)Gastro-esophageal reflux disease with esophagitis; Translations: [Gastroesophageal reflux disease with esophagitis without hemorrhage]Onset: 381379-04-8966LijknwzXwgdenrlz hypertension (20 sources)Essential hypertension; Translations: [Essential (primary) hypertension]Onset: 78-71-7971UzcldzcBmxmejt on above:Problem List clean-up per request of Phys. EHR CmteGenitourinary symptoms and ill-defined conditions (20 sources)Urinary tract infectious disease; Translations: [Unspecified symptoms and signs involving the genitourinary system]EpisodicHeadache; including migraine (20 sources)Episodic tension-type headache; Translations: [Episodic tension-type headache, not intractable]Onset: 67-85-9188KhvdarwDmwlpfhmvbab with complications and secondary hypertension (18 sources)Hypertensive heart disease with heart failure; Translations: [Hypertensive emergency]Onset: 604424-33-8149KbwterkJezoxxn on above: Problem List clean-up per request of Phys. EHR CmteImmunizations and screening for infectious disease (20 sources)Other specified abnormal immunological findings in serum; Translations: [Abnormal blood test]Onset: 785004-17-8089Nmsrxroi Lymphadenitis (20 sources)Submandibular lymphadenopathy; Translations: [Localized enlarged lymph nodes]Onset: 59-26-1744EukfauaoJdhdqtc and fatigue (20 sources)Malaise; Translations: [Other malaise] Resolved: 707809-64-2966LzybxhmlLzbakcmulq disorders (20 sources)Atrophic vaginitis; Translations: [Postmenopausal atrophic vaginitis]Onset: 340669-45-8832XwqvytoHecikfgezfalt mental health disorders (20 sources)Primary insomnia; Translations: [Primary insomnia]ChronicNeoplasms of unspecified nature or uncertain behavior (20 sources)Monoclonal paraproteinemia; Translations: [Monoclonal gammopathy] ChronicOsteoarthritis (20 sources)Osteoarthritis; Translations: [Polyosteoarthritis, unspecified] Onset: 54-70-5302RycwhuyWtqvc aftercare (1 source)jail (current) use of aspirin; Translations: [SENIOR CARE CURRENT USE OF ASPIRIN]Onset: 19-20-1333AqyjxcxkLjocj aftercare (1 source)Other retirement (current) drug therapy; Translations: [OTH SENIOR CARE CURRENT DRUG THERAPY]Onset: 39-90-6132HzbsbcilVtvio and ill-defined heart disease (2 sources)Heart disease; Translations: [Heart disease, unspecified]06-06-2023 ChronicOther and ill-defined heart disease (1 source)Heart disease, unspecified; Translations: [Heart disease]Onset: 19-63-7889BjjhbarXavbb and unspecified benign neoplasm (20 sources)Lipoma of [...] lower limb; Translations: [Sleep related leg cramps] 31-65-2048PjgjxacRoswc connective tissue disease (2 sources)Sleep related leg cramps; Translations: [Sleep related leg cramps] 53-99-9956YhoexstUpieh connective tissue disease (20 sources)Radial styloid tenosynovitis; Translations: [Radial styloid tenosynovitis [de Quervain]]96-84-9118MxwkvqmsPshsn connective tissue disease (20 sources)Pain in right lower limb; Translations: [Pain in right leg]Episodic Other connective tissue disease (20 sources)Trochanteric bursitis of right hip; Translations: [Trochanteric bursitis, right hip]EpisodicOther connective tissue disease (1 source)Radial styloid tenosynovitis [de Quervain]; Translations: [Radial styloid tenosynovitis [de Quervain]]EpisodicOther diseases of veins and lymphatics (20 sources)Peripheral venous insufficiency; Translations: [Venous insufficiency (chronic) (peripheral)]Onset: 994318-06-8937CvjhpdeaEzbgr diseases of veins and lymphatics (20 sources)Venous [...] Translations: [Other specified disorders of adrenal gland]Onset: 106198-84-0095TngbpiqEnjii eye disorders (20 sources)Ptosis of eyelid; Translations: [Unspecified ptosis of right eyelid] EpisodicOther female genital disorders (20 sources)Noninflammatory disorder of the vagina; Translations: [Other specified noninflammatory disorders ofvagina]EpisodicOther gastrointestinal disorders (20 sources)Irritable bowel syndrome with diarrhea; Translations: [Irritable bowel syndrome with diarrhea]83-89-5063YzmpkasGpqzx hematologic conditions (5 sources)Protein electrophoresis abnormal; Translations: [Other specified abnormalities of plasma proteins]EpisodicOther hematologic conditions (2 sources)Other specified abnormalities of plasma proteins; Translations: [OTH SPEC ABNORM PLASMA PROTEINS]Onset: 28-20-5839VybnrtjxKeezu hereditary and degenerative nervous system conditions (20 [...] sources)Shortness of breath; Translations: [SHORTNESS OF BREATH]Onset: 43-78-4430SndryvroAmiuj lower respiratory disease (20 sources)Acute cardiac pulmonary edema ; Translations: [Acute pulmonary edema]Onset: 936974-90-2986UapplrgfImtfjhg on above:Problem List clean-up per request of Phys. EHR CmteOther lower respiratory disease (16 sources)Hypoxia; Translations: [Hypoxemia]18-00-9487XkczulppDqeyfqi on above:Problem List clean-up per request of Phys. EHR CmteOther lower respiratory disease (1 source)Acute pulmonary edema; Translations: [Acute edema of lung, unspecified]70-92-8124BvywmiduVjtji lower respiratory disease (1 source)Hypoxemia; Translations: [Hypoxemia]15-92-1622TdvkfpsqRyaer nervous system disorders (20 sources)Neuropathy; Translations: [Polyneuropathy, [...] knee; Translations: [Chronic pain of right knee] 92-05-4577XetpwkljBtpgg non-traumatic joint disorders (1 source)Hip pain; Translations: [Pain in right hip]72-07-8687QamsrboiFwuwa nutritional; endocrine; and metabolic disorders (20 sources)Simple obesity ; Translations: [Exogenous obesity]22-72-2284Daywraw Other nutritional; endocrine; and metabolic disorders (20 sources)Obese class I; Translations: [Obesity, unspecified]ChronicOther nutritional; endocrine; and metabolic disorders (2 sources)Obesity, unspecifiedChronicOther nutritional; endocrine; and metabolic disorders (20 sources)Obesity; Translations: [Obesity, unspecified]70-07-7443ZthsybqXbbsi nutritional; endocrine; and metabolic disorders (20 sources)Obesity caused by energy imbalance; Translations: [Other obesity due to excess calories]ChronicOther nutritional; endocrine; and metabolic disorders (20 sources)Body mass index 30+ - obesity; Translations: [Body mass index (BMI) 32.0-32.9, adult]Onset: 883437-51-6665AnrsjctQnyam nutritional; endocrine; and metabolic disorders (4 sources)Other obesity due to excess caloriesChronicOther nutritional; endocrine; and metabolic disorders (5 sources)Body mass index (BMI) 32.0-32.9, adult; Translations: [Body mass index (BMI) 32.0-32.9, adult]Onset: 42-27-9198YteflrdXnpqh nutritional; endocrine; and metabolic disorders (3 sources)Body mass index (BMI) 33.0-33.9, adult; Translations: [Body mass index (BMI) 33.0-33.9, adult]Onset: 51-75-1109PtsuowaReifg screening for suspected conditions (not mental disorders or infectious disease) (20 sources)Encounter for screening mammogram for malignant neoplasm of breast; Translations: [Cardiovascular stress test abnormal]Onset: 75-49-7671Dzcgmefy Comment on above:Problem List clean-up per request of Phys. EHR CmteOther skin disorders (1 source)Localized swelling, mass and lump, neckEpisodicOther upper respiratory disease (20 sources)Seasonal allergic rhinitis; Translations: [Other seasonal allergic rhinitis]Onset: 52-28-2784HfgbptgMiddr upper respiratory disease (20 sources)Allergic rhinitis; Translations: [Allergic rhinitis, unspecified] Onset: 95-33-1543QjspsixUjloo upper respiratory disease (20 sources)Vasomotor rhinitis; Translations: [Vasomotor rhinitis]Onset: 81-44-3946MrnbxniOauzo upper respiratory infections (20 sources)Acute sinusitis; Translations: [Acute sinusitis, unspecified]Onset: 59-29-2792IbzmltakQvvnbs media and related conditions (20 sources)Otitis media; Translations: [Otitis media, unspecified, unspecified ear]84-24-4453FxedffigOfkmolzxg (except that caused by tuberculosis or sexually transmitted disease) (1 source)Pneumonia, unspecified organism; Translations: [PNEUMONIA UNSPECIFIED ORGANISM]Onset: 37-28-7498FedtpeziWapwdzobf heart disease (20 sources)Pulmonary hypertension; Translations: [Pulmonary hypertension, unspecified]ChronicResidual codes; unclassified (12 sources)Asymptomatic menopausal state; Translations: [Menopause]Episodic Residual codes; unclassified (20 sources)Menopause present; Translations: [Asymptomatic menopausal state] 36-25-6498QdjwhhbuYazcwakq codes; unclassified (1 source)Family history of malignant neoplasm of bladder; Translations: [FAM HX MALIGNANT NEOPLASM BLADDER]Onset: 30-25-7943XuyxpbkyNakeqhku codes; unclassified (1 source)Family history of malignant neoplasm of digestive organs; Translations: [FAM HX MALIG NEOPLASM DIGESTIV ORGN]Onset: 12-54-2807Rcamsrtr Residual codes; unclassified (1 source)Family history of other malignant neoplasms of lymphoid, hematopoietic and related tissues; Translations: [FAM HX OTH MAL TANJA LYMPH HEMATPOETC]Onset: 59-76-6145RfdkdcbqYmjsqdfk codes; unclassified (1 source)Family history of malignant neoplasm of trachea, bronchus and lung; Translations: [FAM HX MALIG NEOPLSM TRACH BRON LNG]Onset: 29-44-2905Czitsswu Residual codes; unclassified (20 sources)Postmenopausal state; Translations: [Asymptomatic menopausal state] EpisodicResidual codes; unclassified (19 sources)Symptom: generalized; Translations: [Other general symptoms and signs]EpisodicResidual codes; unclassified (1 source)Other general symptoms and signs; Translations: [Other general symptoms and signs]EpisodicResidual codes; unclassified (1 source)Edema; Translations: [Edema, unspecified]01-49-0511BvgcbxtaFootqygmkdd failure; insufficiency; arrest (adult) (1 source)Acute respiratory failure with hypoxia; Translations: [ACUTE RESPIRATORY FAIL W/HYPOXIA]Onset: 16-70-3504SgtdupmxEtruqdlfakp failure; insufficiency; arrest (adult) (1 source)Respiratory failure; insufficiency; arrest (adult)Retinal detachments; defects; vascular occlusion; and retinopathy (8 sources)Epiretinal membrane of left eye; 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, left eye]Onset: 963711-54-2078QpkdvoaShoi and subcutaneous tissue infections (2 sources)Cellulitis of right fingerEpisodicSpondylosis; intervertebral disc disorders; other back problems (20 sources)Cervical spondylosis without myelopathy; Translations: [Other spondylosis with radiculopathy, cervical region]Onset: ChronicSprains and strains (20 sources)Neck sprain; Translations: [Strain of muscle, fascia and tendon at neck level, initial encounter]Onset: 04-05-2016 Resolved: 74-55-8336VdjyyzjlPthdcacvy-related disorders (20 sources)Tobacco user; Translations: [Nicotine dependence, cigarettes, in remission]ChronicThyroid disorders (20 sources)Goiter; Translations: [Iodine-deficiency related diffuse (endemic) goiter]43-40-2113LkehnboKnbugpp on above:US: right 16mm TR4, left 5-7mm TR4 - 08/2024US: right 16mm TR4, left 5-7mm TR4 - 08/2024FNA: right nodule 11/17/24US: right 16mm TR4, left 5-7mm TR4 - 08/2024,FNA: right nodule - 11/17/24,US: no change - 01/2025Unclassified (3 sources)CONTACT W/AND (SUSP) EXPOS COVID-19; Translations: [CONTACT W/AND (SUSP) EXPOS COVID-19]Onset: 09-89-6724Efffa infection (20 sources)COVID-19; Translations: [Disease caused by 2019-nCoV]Onset: 05-08-2022 Past or Other Problems Problem ClassificationProblemDateDocumented DateEpisodic/ChronicCoronary atherosclerosis and other heart disease (4 sources)Patient post percutaneous transluminal coronary angioplasty; Translations: [Percutaneous transluminal coronary angioplasty status]Onset: 000772-33-0399WfyzeqlmDiofogfinv disorders (20 sources)Esophageal disorders; Translations: [Gastroesophageal reflux disease with esophagitis without hemorrhage]Headache; including migraine (20 sources)Headache; Translations: [Headache, unspecified]Onset: 10-19-2015 EpisodicInflammation; infection of eye (except that caused by tuberculosis or sexually transmitteddisease) (8 sources)Blepharitis of upper and lower eyelids of bilateral eyes; Translations: [Unspecified blepharitis right eye, upper and lower eyelids]Onset: 805401-60-9284DmravuxeJvdlfvl (20 sources)Candidiasis of mouth; Translations: [Candidal stomatitis]Onset: 55-78-8470AitxarigIvmhweihughq breast conditions (20 sources)Pain of breast; Translations: [Mastodynia] Resolved: 30-64-4280MjbnlvuqJwantnhavot chest pain (20 sources)Precordial pain; Translations: [Chest pain]Onset: 73-08-8584Bloddsyg Other connective tissue disease (20 sources)Shoulder lesion, unspecified, left shoulder; Translations: [Shoulder lesion, unspecified, left shoulder]Onset: 89-19-9350TmyuyxasKtxpi eye disorders (8 sources)Dry eyes; Translations: [Dry eye syndrome of bilateral lacrimal glands]Onset: 142455-39-2659DklrypkjEzqsm lower respiratory disease (20 sources)Cough; Translations: [Cough, unspecified]Onset: 76-02-5487Oxwjkryw Other lower respiratory disease (10 sources)Dyspnea; Translations: [Shortness of breath]Onset: 10-17-2023 75-04-8824UkquafhwSjmkh nervous system disorders (19 sources)Tremor; Translations: [Tremor, unspecified]Onset: 65-38-1404Zcuhtvbj Other nervous system disorders (19 sources)Atypical facial pain; Translations: [Atypical facial pain]Onset: 44-00-9667LxiemtciAurkp nervous system disorders (1 source)Tremor, unspecified; Translations: [Tremor, unspecified]Onset: 14-88-5506BpbqyxraSlfph nervous system disorders (1 source)Atypical facial pain; Translations: [Atypical facial pain]Onset: 66-07-1467ElsbrhkfFkxwi non-traumatic joint disorders (19 sources)Shoulder joint pain; Translations: [Pain in left shoulder]Onset: 11-60-2329IncsmtppWbddv non-traumatic joint disorders (1 source)Pain in left shoulder; Translations: [Pain in left shoulder]Onset: 65-86-0050ThtlemkvZwrvzbzc codes; unclassified (20 sources)Insomnia; Translations: [Insomnia, unspecified]Onset: 06-23-2015 EpisodicScreening and history of mental health and substance abuse codes (20 sources)Ex-smoker; Translations: [Personal history of tobacco use]Onset: 406038-24-5379YzqruzsxIhfozrz on above:1998;Spondylosis; intervertebral disc disorders; other back problems (20 sources)Neck pain; Translations: [Cervicalgia]Onset: 90-62-7368Ylmykidy Superficial injury; contusion (20 sources)Contusion of ankle; Translations: [Contusion of unspecified ankle, initial encounter]Onset: 52-78-9358YsajtipbOqpzxzihctup (3 sources)Patient status finding; Translations: [Patient new to provider] Unclassified (1 source)CONTACT W/AND (SUSP) EXPOS COVID-19; Translations: [CONTACT W/AND (SUSP) EXPOS COVID-19]Onset: 85-23-5650Hexjtvbkkxlp (20 sources)Acute candidiasis of vulva and vagina; Translations: [Acute candidiasis of vulva and vagina] Resolved: 31-93-7728Tkxrettwlspu (1 source)Subacute cough R05.2Unclassified (1 source)Post COVID-19 condition, 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Unclassified (1 source)Chronic cough R05.3Unclassified (10 sources)Onset: 03-05-2024 Resolved: 444437-24-4918Bckrslz tract infections (20 sources)Urethral syndrome; 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, unspecified] Resolved: 99-15-0616AoxdriiiKnkpz infection (17 sources)Disease caused by 2019-nCoV; Translations: [COVID-19]Onset: 902902-28-0704Muosovjn Results Test NameValueInterpretationReference RangeFacilityBasophils Auto (Bld) [#/Vol] Ordered By: Valentin Leonard on 93-00-4042Yxjsljvbp (Bld) [#/Vol]0.05 10*3/uL <0.11[facility] TownshipBasophils/100 WBC Auto (Bld)Ordered By: Valentin Leonard on 13-66-5654Ejfawxrpl/100 WBC (Bld)0.8 %[facility] TownshipBlood manual differential comment interpretation narrativeOrdered By: Valentin Leonard on 35-23-6301Tzqcaz differential comment Arturo (Bld) [Interp] AutoKettering Health Washington TownshipCB W Auto Differential panel (Bld)on 28-76-6890Fuvreckip (Bld) [#/Vol]0.05 10*3/uLNormal<0.11CFisher-Titus [facility] on above:Order Comment: Specimen Type: BLOOD SPECIMEN Ordering Facility: [facility] Address: [address] [place], [place] [address]Performed By: #### 78121-9 #### [facility] CLIA [id number] [address] [place] [address] [place] [address] [place] OF AMERICABasophils/100 WBC (Bld)0.8 % NormalUC Health on above:Order Comment: Specimen Type: BLOOD SPECIMEN Ordering Facility: [facility] Address: [address] [place], [place] [address]Performed By: #### 90267-6 #### [facility] CLIA [id number] [address] [place] [address] [place] OF AMERICADifferential cell count method Nom (Bld)AutoNormalClevelMercy Health Springfield [facility] on above:Order Comment: Specimen Type: BLOOD SPECIMEN Ordering Facility: [facility] Address: [address] [place], [place] [address]Performed By: #### 60123-3 #### [facility] CLIA [id number] [address] [place] [address] [place] AMERICAEosinophils (Bld) [#/Vol] 0.16 10*3/uLNormal<0.46[facility] on above:Order Comment: Specimen Type: BLOOD SPECIMEN Ordering Facility: [facility] Address: [address] [place], [place] [address]Performed By: #### 25149-7 #### [facility] CLIA [id number] [address] [place] [address] [place] AMERICAEosinophils/100 WBC (Bld)2.5 %NormalUC Health on above:Order Comment: Specimen Type: BLOOD SPECIMEN Ordering Facility: [facility] Address: [address] [place], [place] [address]Performed By: #### 96472-9 #### [facility] CLIA [id number] [address] [place] [address] [place] AMERICAErythrocyte distribution width (RBC) [Ratio]13.5 %Iuzjzn38.5-15.0[facility] on above:Order Comment: Specimen Type: BLOOD SPECIMEN Ordering Facility: [facility] Address: [address] [place], [place] [address]Performed By: #### 96823-9 #### [facility] CLIA [id number] [address] [place] [address] [place] AMERICAHematocrit (Bld) [Volume fraction]27.6 %Low36.0-46.0[facility] on above:Order Comment: Specimen Type: BLOOD SPECIMEN Ordering Facility: [facility] Address: [address] [place], [place] [address]Performed By: #### 92714-4 #### [facility] IA [id number] [address] [place] [address] [place] AMERICAHemoglobin (Bld) [Mass/Vol] 8.9 g/dLLow11.5-15.5CFisher-Titus [facility] Center on above:Order Comment: Specimen Type: BLOOD SPECIMEN Ordering Facility: [facility] Address: [address] [place], [place] [address]Performed By: #### 32838-1 #### [facility] IA [id number] [address] [place] [address] [place] AMERICAImmature granulocytes (Bld) [#/Vol]0.03 10*3/uLNormal<0.10[facility] on above:Order Comment: Specimen Type: BLOOD SPECIMEN Ordering Facility: [facility] Address: [address] [place], [place] [address]Performed By: #### 10898-5 #### [facility] IA [id number] [address] [place] [address] [place] AMERICAImmature granulocytes/100 WBC (Bld)0.5 %NormalUC Health on above:Order Comment: Specimen Type: BLOOD SPECIMEN Ordering Facility: [facility] Address: [address] [place], [place] [address]Performed By: #### 23104-2 #### [facility] IA [id number] [address] [place] [address] [place] OF AMERICALymphocytes (Bld) [#/Vol] 0.77 10*3/uLLow1.00-4.00[facility] on above:Order Comment: Specimen Type: BLOOD SPECIMEN Ordering Facility: [facility] Address: [address] [place], [place] [address]Performed By: #### 31542-7 #### [facility] CLIA [id number] [address] [place] [address] [place] [facility]PITALLymphocytes/100 WBC (Bld) 12.3 %NormalUC Health on above:Order Comment: Specimen Type: BLOOD SPECIMEN Ordering Facility: [facility] Address: [address] [place], [place] [address]Performed By: #### 18361-8 #### [facility] CLIA [id number] [address] [place] [address] (RBC) [Entitic mass]28.8 iuHhaqco92.0-34.0[facility] on above:Order Comment: Specimen Type: BLOOD SPECIMEN Ordering Facility: [facility] Address: [address] [place], [place] [address]Performed By: #### 98619-9 #### [facility] CLIA [id number] [address] [place] [address] [facility] HOSPITALMCHC (RBC) [Mass/Vol]32.2 g/cDYruxls06.5-36.0[facility] on above:Order Comment: Specimen Type: BLOOD SPECIMEN Ordering Facility: [facility] Address: [address] [place], [place] [address]Performed By: #### 50553-1 #### [facility] CLIA [id number] [address] [place] [address] (RBC) [Entitic vol]89.3 iHHamoln97.0-100.0[facility] on above:Order Comment: Specimen Type: BLOOD SPECIMEN Ordering Facility: [facility] Address: [address] [place], [place] [address]Performed By: #### 07337-4 #### [facility] CLIA [id number] [address] [place] [address] [place] AMERICAMonocytes (Bld) [#/Vol]0.65 10*3/uLNormal<0.87[facility] on above:Order Comment: Specimen Type: BLOOD SPECIMEN Ordering Facility: [facility] Address: [address] [place], [place] [address]Performed By: #### 78307-4 #### [facility] CLIA [id number] [address] [place] [address] [place] AMERICAMonocytes/100 WBC (Bld)10.4 %NormalUC Health on above:Order Comment: Specimen Type: BLOOD SPECIMEN Ordering Facility: [facility] Address: [address] [place], [place] [address]Performed By: #### 98206-6 #### [facility] CLIA [id number] [address] [place] [address] [place] AMERICANeutrophils (Bld) [#/Vol] 4.62 10*3/uLNormal1.45-7.50[facility] on above:Order Comment: Specimen Type: BLOOD SPECIMEN Ordering Facility: [facility] Address: [address] [place], [place] [address]Performed By: #### 35610-0 #### [facility] CLIA [id number] [address] [place], [place] [address] [place] AMERICANeutrophils/100 WBC (Bld) 73.5 %NormalUC Health on above:Order Comment: Specimen Type: BLOOD SPECIMEN Ordering Facility: [facility] Address: [address] [place], [place] [address]Performed By: #### 27686-7 #### [facility] CLIA [id number] [address] [place], [place] [address] [place] OF AMERICANucleated RBC (Bld) [#/Vol] 10*3/uLNormal<0.01[facility] on above:Order Comment: Specimen Type: BLOOD SPECIMEN Ordering Facility: [facility] Address: [address] [place], [place] [address]Performed By: #### 76223-3 #### [facility] CLIA [id number] [address] [place] [address] [place] AMERICANucleated RBC/100 WBC (Bld) [Ratio]0.0 /100 WBCNormalCFisher-Titus Medical Center on above:Order Comment: Specimen Type: BLOOD SPECIMEN Ordering Facility: [facility] Address: [address] [place], [place] [address]Performed By: #### 27912-0 #### [facility] CLIA [id number] [address] [place] [address] [place] AMERICAPlatelet mean volume (Bld) [Entitic vol]9.9 fLNormal9.0-12.7CFisher-[facility] on above: Order Comment: Specimen Type: BLOOD SPECIMEN Ordering Facility: [facility] Address: [address] [place], [place] [address]Performed By: #### 50468-0 #### [facility] IA [id number] [address] [place] [address] [place] AMERICAPlatelets (Bld) [#/Vol]295 10*3/kVKpyari567-217QzvkrzfusUC Health on above:Order Comment: Specimen Type: BLOOD SPECIMEN Ordering Facility: [facility] Address: [address] [place], [place] [address]Performed By: #### 03580-7 #### [facility] CLIA [id number] [address] [place] [address] [place] AMERICARBC (Bld) [#/Vol]3.09 10*6/uLLow3.90-5.20[facility] on above:Order Comment: Specimen Type: BLOOD SPECIMEN Ordering Facility: [facility] Address: [address] [place], [place] [address]Performed By: #### 77157-7 #### [facility] CLIA [id number] [address] [place] [address] [place] AMERICAWBC (Bld) [#/Vol]6.28 10*3/uLNormal3.70-11.00[facility] on above:Order Comment: Specimen Type: BLOOD SPECIMEN Ordering Facility: [facility] Address: [address] [place], [place] [address]Performed By: #### 23280-5 #### [facility] CLIA [id number] [address] [place], [place] [address]Comprehensive metabolic 2000 panelon 52-03-4584Huxvcan [Mass/Vol]3.7 g/dLLow3.9-4.9CFisher-[facility] on above:Order Comment: Specimen Type: BLOOD SPECIMEN Ordering Facility: [facility] Address: [address] [place], [place] [address]Performed By: #### 22727-9 #### [facility] CLIA [id number] [address] [place] [address] 357[address]SXN [Catalytic activity/Vol]45 U/TVehfjr07-060FngjddfjjUC Health on above:Order Comment: Specimen Type: BLOOD SPECIMEN Ordering Facility: [facility] Address: [address] [place], [place] [address]Performed By: #### 14422-8 #### [facility]MI[facility] CLIA [id number] [address] [place] [address]BNB [Catalytic activity/Vol]10 U/LNormal7-38[facility] on above:Order Comment: Specimen Type: BLOOD SPECIMEN Ordering Facility: [facility] Address: [address] [place], [place] [address]Performed By: #### 50686-2 #### [facility] CLIA [id number] [address] [place], [place] [address]Jlwqf gap [Moles/Vol]10 mmol/LNormal8-15[facility] on above:Order Comment: Specimen Type: BLOOD SPECIMEN Ordering Facility: [facility] Address: [address] [place], [place] [address]Performed By: #### 29170-2 #### [facility] CLIA [id number] [address] [place], [place] [address]EIG [Catalytic activity/Vol]16 U/HUhfzfz19-77JjqcybgghUC Health on above:Order Comment: Specimen Type: BLOOD SPECIMEN Ordering Facility: [facility] Address: [address] [place], [place] [address]Performed By: #### 41223-7 #### [facility] CLIA [id number] [address] [place], [place] [address]Lbxfiywxj [Mass/Vol]0.3 mg/dLNormal0.2-1.3CFisher-Titus [facility] Center on above:Order Comment: Specimen Type: BLOOD SPECIMEN Ordering Facility: [facility] Address: [address] [place], [place] [address]Performed By: #### 47784-7 #### [facility] CLIA [id number] [address] [place], [place] [address]Gjplgbx [Mass/Vol]9.0 mg/dLNormal8.5-10.2CFisher-Titus Medical Center on above:Order Comment: Specimen Type: BLOOD SPECIMEN Order[facility] Facility: [facility] Address: [address] [place], [place] [address]Performed By: #### 60054-8 #### [facility] CLIA [id number] [address] [place], [place] [address]Entrinrz [Moles/Vol]101 mmol/OKtvxfu25-657CnyoshfkpUC Health on above:Order Comment: Specimen Type: BLOOD SPECIMEN Ordering Facility: [facility] Address: [address] [place], [place] [address]Performed By: #### 71267-3 #### [facility] CLIA [id number] [address] [place], [place] [address]LT4 [Moles/Vol]28 mmol/VGlfedr62-71KejtrqlikBarney Children'S Medical Center Comment on above:Order Comment: Specimen Type: BLOOD SPECIMEN Ordering Facility: [facility] Address: [address] [place], [place] [address]Performed By: #### 70277-8 #### [facility] CLIA [id number] [address] [place] [address]Tyqgkwhpna [Mass/Vol]1.64 mg/dLHigh0.58-0.96[facility]S Medical CenterComment on above:Order Comment: Specimen Type: BLOOD SPECIMEN Ordering Facility: [facility] Address: [address] [place], [place] [address]Performed By: #### 33281-5 #### [facility] CLIA [id number] [address] [place] [address]uYFYwh SerPlBld CKD-EPI 343794 mL/min/1.73m???Low>=60[facility]S Medical CenterComment on above:Order Comment: Specimen Type: BLOOD SPECIMEN Ordering Facility: [facility] Address: [address] [place], [place] [address]Result Comment: Estimated Glomerular Filtration Rate (eGFR) is [...] not accurately reflect actual GFR.Performed By: #### 80607-7 #### [facility] CLIA [id number] [address] [place] [address]Nexzzxw [Mass/Vol]103 mg/xCZkpm96-08JlqqdzvumBarney Children'S Medical Center Comment on above:Order Comment: Specimen Type: BLOOD SPECIMEN Ordering Facility: [facility] Address: [address] [place] [address]Uhjrly Comment: The [place] Diabetes Association (ADA) provides guidance for cutoff [...] Standards of Medical Care in Diabetes 2016, [place] Diabetes Association. Diabetes Care. 2016.39(Suppl 1).Performed By: #### 37535-8 #### [facility] CLIA [id number] [address] [place] [address]Msthgpitz [Moles/Vol]4.7 mmol/LNormal3.7-5.1CFisher-Titus Medical Center on above:Order Comment: Specimen Type: BLOOD SPECIMEN Ordering Facility: [facility] Address: [address] [place], [place] [address]Performed By: #### 70424-9 #### [facility] CLIA [id number] [address] [place] [address]Txwxgug [Mass/Vol]5.9 g/dLLow6.3-8.0[facility] Comment on above:Order Comment: Specimen Type: BLOOD SPECIMEN Ordering Facility: [facility] Address: [address] [place], [place] [address]Performed By: #### 29756-5 #### [facility] CLIA [id number] [address] [place] [address]Tqxsvq [Moles/Vol]139 mmol/FGcgdxn076-789KndtjocxrUC Health on above:Order Comment: Specimen Type: BLOOD SPECIMEN [facility] Address: [address] [id number] By: #### 84167-7 #### [facility] CLIA [id number] [address] [place], [place] [address]Gmra nitrogen [Mass/Vol]32 mg/dLHigh7-21[facility] on above:Order Comment: Specimen Type: BLOOD SPECIMEN Order[facility] Facility: [facility] Address: [address] [place], [place] [address]Performed By: #### 68109-5 #### [facility] CLIA [id number] [address] [place] [address]FNU SerPl-aCncon 22-77-7510Acqbgzdlqdffsv (EPO) Qn26.4 mIU/mL High2.6-18.5CFisher-Titus Medical Center on above:Order Comment: Specimen Type: BLOOD SPECIMEN Order[facility] Facility: [facility] Address: [address] [place], [place] [address]Performed By: #### 26842-6 #### [facility] IA [id number] [address] [place] [address] [place] AMERICAEosinophils/100 WBC Auto (Bld)Ordered By: Valentin Abhyankar on 53-10-6920Hlwpknebine/100 WBC (Bld)2.5 % [facility] TownshipErythrocyte distribution width Auto (RBC) [Ratio]Ordered By: Valentin Abhyankar on 89-23-2973Aohwwolycpu distribution width (RBC) [Ratio]13.5 %11.5-15.0[facility] TownshipFerritin SerPl-mCnc on 21-59-4002Brbikqav [Mass/Vol]174.0 ng/gANshfjd85.7-205.1CFisher-Titus Medical Center on above:Order Comment: Specimen Type: BLOOD SPECIMEN Order[facility] Facility[facility] Address: [address] [place], [place] [address]Performed By: #### 66472-7, 2284-8, 2132-9, 2276-4 #### [facility] IA [id number] [address] [place] [address] [place] AMERICAFolate SerPl-mCncon 42-31-8403Roshew [Mass/Vol]17.5 ng/mLNormal>4.7CFisher-Titus Medical Center on above:Order Comment: Specimen Type: BLOOD SPECIMEN Order[facility] Facility[facility] Address: [address] [place], [place] [address]Performed By: #### 21126-4, 2283-8, 9, 2275-4 #### [facility] CLIA [id number] [address] [place] [id number] [place] [address] STATES OF WHITE HOSPITALGlomerular filtration rate [Volume Rate/Area] in Serum, Plasma or Blood by CreatinineOrdered By: Valentin Leonard on 98-09-0318Qbcykjrknq filtration rate [Volume Rate/Area] in Serum, Plasma or Blood by Pjwlqgpxfy57 mL/min/1.73m???Low>=60[facility] TownshipComcorewell health big rapids hospital on above:Estimated Glomerular Filtration Rate (eGFR) [...] Leonard on 07-15-2025 Hematocrit (Bld) [Volume fraction]27.6 %Low36.0-46.0[facility] TownshipHemoglobin [Mass/volume] in BloodOrdered By: Valentin Leonard on 07-15-2025 Hemoglobin (Bld) [Mass/Vol]8.9 g/dLLow11.5-15.5FMercy Health Iron and Iron binding capacity panelon 70-52-9770Mmlz [Mass/Vol]45 ug/dLNormal 41-186[facility] on above:Order Comment: Specimen Type: BLOOD SPECIMEN [facility] Address: [address] [place], [place] [address]Performed By: #### 25198-5, 2283-8, 2132-06, 2276-01 #### [facility] CLIA [id number] [address] [place], [place] [address] [place] AMERICAIron binding capacity [Mass/Vol]255 ug/wNTlzvrf034-188QtndympqoUC Health on above:Order Comment: Specimen Type: BLOOD SPECIMEN Order[facility] Facility: [facility] Address: [address] [place], [place] [address]Performed By: #### 73562-5, 2284-8, 2131-9, 6-4 #### [facility] CLIA [id number] [address] [place] [address] [place] AMERICAIron/TIBC [Molar ratio]17.6 %Oretqz41.0-57.0[facility] on above:Order Comment: Specimen Type: BLOOD SPECIMEN Order[facility] Facility: [facility] Address: [address] [place], [place] [address]Performed By: #### 17217-5, 2284-8, 2131-9, 2275-4 #### [facility] CLIA [id number] [address] [place], [place] [address] [place] AMERICAIron binding capacity [Mass/volume] in Serum or PlasmaOrdered By: Valentin Leonard on 17-65-7050Bxei binding capacity [Mass/Vol]255 ug/zG219-354CowwfbftoKettering Health Washington TownshipIron saturation [Mass Fraction] in Serum or PlasmaOrdered By: Valentin Abrebecca on 14-23-1853Orkg saturation [Mass fraction]17.6 %15.0-57.0[facility] TownshipLaboratory - Chemistry and Chemistry - challengeOrdered By: Valentin Abhyankar on 26-49-8072Sdedllv [Mass/Vol]3.7 g/dLLow3.9-4.9[facility] TownshipALP [Catalytic activity/Vol]45 U/Y05-078FdofdfxskKettering Health Washington TownshipALT [Catalytic activity/Vol]10 U/L7-38[facility] TownshipAST [Catalytic activity/Vol]16 U/A59-44OnywlecnsKettering Health Washington TownshipBilirubin [Mass/Vol]0.3 mg/dL0.2-1.3FMercy HealthCalcium [Mass/Vol]9.0 mg/dL8.5-10.2FMercy HealthChloride [Moles/Vol]101 mmol/L 98-107[facility] TownshipCO2 [Moles/Vol]28 mmol/W32-79MutijusvaKettering Health Washington TownshipCreatinine [Mass/Vol]1.64 mg/dLHigh0.58-0.96[facility] TownshipFerritin [Mass/Vol]174.0 ng/mL14.7-205.1FMercy HealthGlucose [Mass/Vol]103 mg/kATqtc06-16DmyycvscyKettering Health Washington TownshipComment on above:The [place] Diabetes Association (ADA) provides guidance for cutoff [...] diabetes.Reference: Standardsof Medical Care in Diabetes 2016, [place] Diabetes Association. Diabetes Care. 2016.39(Suppl 1).Iron [Mass/Vol]45 ug/rY68-404 [facility] TownshipPotassium [Moles/Vol]4.7 mmol/L3.7-5.1FTriHealth Bethesda North Hospitalodium [Moles/Vol]139 mmol/Q601-170WukvofdenKettering Health Washington TownshipUrea nitrogen [Mass/Vol]32 mg/dLHigh7-21[facility] TownshipLaboratory - Chemistry and Chemistry - challengeOrdered By: Nathan Hathaway on 69-80-8476Uwekzbmub (Vitamin B12) [Mass/Vol]1457 pg/rYXcle895-2508FayfzbdxlKettering Health Washington TownshipLaboratory - Hematology and Cell countsOrdered By: Valentin Leonard on 06-12-4456Aunhvhlpmal (Bld) [#/Vol]0.16 10*3/uL<0.46[facility] TownshipImmature granulocytes (Bld) [#/Vol]0.03 10*3/uL<0.10 [facility] TownshipImmature granulocytes/100 WBC (Bld)0.5 % [facility] TownshipLeukocytes [#/volume] corrected for nucleated erythrocytes in Blood by Automated counOrdered By: Valentin Leonard on 07-15-2025 WBC corrected for nucl RBC Auto (Bld) [#/Vol]6.28 k/uL3.70-11.00[facility] TownshipLymphocytes Auto (Bld) [#/Vol]Ordered By: Valentin Leonard on 46-61-6719Pzetvhvwzrt (Bld) [#/Vol]0.77 10*3/uLLow1.00-4.00[facility] TownshipLymphocytes/100 WBC Auto (Bld)Ordered By: Valentin Leonard on 21-30-1994Hvhpqjnflry/100 WBC (Bld)12.3 %[facility] MCH Auto (RBC) [Entitic mass]Ordered By: Valentin Leonard on 27-15-1503PWZ (RBC) [Entitic mass]28.8 pg26.0-34.0[facility] TownshipMCHC Auto (RBC) [Mass/Vol]Ordered By: Valentin Leonard on 34-90-0751BIDM (RBC) [Mass/Vol]32.2 g/dL30.5-36.0[facility] TownshipMCV Auto (RBC) [Entitic vol] Ordered By: Valentin Leonard on 81-06-7262NSO (RBC) [Entitic vol]89.3 fL 80.0-100.0[facility] Township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 ANALYSISon 92-33-4439CYT86 L265P MUTATION RESULTNormalCFisher-Titus [facility] Center on above:Order Comment: Specimen Type: BLOOD SPECIMEN Ordering Facility: [facility] Address: [address] [place], [place] [address]Result Comment: 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 ANALYSIS Laboratory Accession Number: [id number] Sample Type: Peripheral Blood Result: 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 L265P is highly characteristic of [...] presence or absence of the L265P (c.794T>C, p.Qkd394Onj; [id number]; [id number]) variant (mutation) in MYD88 gene (NM_[id number]) using [...] MYD88 mutations in human lymphoma. Nature 2011. 470(3293):115-9. 2) Joya RIVAS, Anai WagonerJ, DW, James L, Mikey JR, Hsi ED: MYD88 L265P somatic mutation: its usefulness in the differential diagnosis of bone marrow involvement by B-cell lymphoproliferative disorders. Am J Clin Pathol. 2013. 140(3):387-94. 3) Obi SP, Spencer L, Todd G, et al. MYD88 L265P somatic mutation in Waldenstrom's macroglobulinemia. N Engl J Med. 2012. 367(9)231-33. 4) Gage WagonerQ, Juan J YS, Ariel LL, Tanya K. Toll-like receptors and cancer: MYD88 mutation and inflammation. Front Immunol. 2014 May 28;367(5):1-10. 5) Gabriel X, Li W, Maykel Q, et al. MYD88 L265P Mutation in Lymphoid Malignancies. Cancer Res. 2018. 78(10):1541-32. Disclaimer: This test was developed and its performance characteristics determined by [facility]'s Pathology and Laboratory Medicine Department. It has not been cleared or approved by the FDA. [facility]'s Pathology and Laboratory Medicine Department is regulated under CLIA as certified to perform high-complexity testing. This test is used for clinical purposes. It should not be regarded as investigational or for research. Test performed at [facility], [address] [place] [address]. CLIA Number: [id number] Interpretation performed by Natalee Bolanos, PhD, [facility]ECARE HOSPITALDPerformed By: #### 84169- 5 #### [facility] CLIA [id number] [address] [place] [address] [place] OF AMERICAMonocytes Auto (Bld) [#/Vol] Ordered By: Valentin Leonard on 80-84-5947Svwbbzedx (Bld) [#/Vol]0.65 10*3/uL <0.87[facility] TownshipMonocytes/100 WBC Auto (Bld)Ordered By: Valentin Leonard on 00-28-5182Irlduhjyo/100 WBC (Bld)10.4 %[facility] TownshipNeutrophils Auto (Bld) [#/Vol]Ordered By: Valentin Abkatrinaankar on 83-23-6684Wljamxbyxkw (Bld) [#/Vol]4.62 10*3/uL1.45-7.50[facility] TownshipNeutrophils/100 WBC Auto (Bld)Ordered By: Valentin Leonard on 09-70-2575Gdtuczugqpm/100 WBC (Bld)73.5 %[facility] TownshipNo Panel InformationOrdered By: Valentin Leonard on 42-06-6425Pxekcu57.5 ng/mL>4.7 [facility] TownshipMYD88 L265P MutationSee commentKettering Health Washington TownshipComment on above: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 ANALYSISLaboratory Accession Number: [id number] Type: Peripheral BloodResult:MYD88 L265P (c.794T>C, p.Rtm308Ujd) detected with variant allelefraction (vaf) 0.98%.Interpr etation:The MYD88 missense variant L265P (c.794T>C, p.Thp169Gjk) is present.L265P is highly characteristic of lymphoplasmacyticlymphoma/Waldenstrom's macroglobulinemia, where it is found in >90% ofcases. This abnormality may also be found in diffuse large B- celllymphomas and in a small percentage of other small B-cell neoplasmsincluding chronic lymphocytic leukemia and marginal zone lymphomas.Clinical and pathologic correlation is suggested.Methodology:DNA extracted from the specimen is interrogated for the presence orabsence of the L265P (c.794T>C, p.Lup476Mnl; g.94374786; [id number])variant (mutation) in MYD88 gene (NM_002468.4) using droplet digitalpolymerase chain reaction (PCR). Droplet digital PCR includespartitioning of DNA into droplets, droplet independent PCR,interrogation using allele specific hydrolysis probes, and analysis ofdroplets using Poisson distribution to calculate the copy number ofMYD88 L265P and wild-type MYD88. The reference genome used hhHBIf55/hg38.Limitations:This test is designed to detect the L265P variant in the MYD88 gene.Uncommon variants or single nucleotide polymorphisms may affectbinding of probes or primers and may rarely result in false negative,false positive, or indeterminate results. Other variants in MYD88 willnot be identifiedby this test. The lower limit of detection of thisassay is approximately 0.5% variant allele fraction (vaf) for ryhBTY53 L265P variant. Although vaf is provided for reference, thisvalue should be interpreted with caution as this test is intended forqualitative purposes and is not validated as a quantitative test. YxgBLG82 L265P result cannot be used on a standalone basis for diagnosisof lymphoplasmacytic lymphoma and needs to be considered in thecontext of clinical and morphologic presentation.References:1) Nikkie VN, Cristhian RM, Hannah R, et al. Oncogenically active WHT66iksvrrgdn in human lymphoma. Nature 2011. 470(4299):115-9.2) Joya SL, Anai WagonerJ, DW, James L, Mikey JR, Nash ED: [id number] somatic mutation: its usefulness in the differential diagnosisof bone marrow involvement by B-cell lymphoproliferative disorders. AmJ Clin Pathol. 2013. 140(3):387-94.3) Obi SP, Spencer L, Brooks G,et al. 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 N Engl J Med. 2012. 367(2)876-33.4) Almonte JQ, Juan J YS, Ariel LL, Horcait K. Toll-like receptorsand cancer: MYD88 mutation and inflammation. Front Immunol. 2014 ;367(5):1-10.5) Nery X, Francy W, Maykel Q, et al. 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 Cancer Res. 2018. 78(10):2068-21.Disclaimer:This test was developed and its performance characteristics determinedby [facility]'s [facility] and [facility] Department. Ithas not been cleared or approved by the FDA. [facility]'s[facility] is regulated under CLIAas certified to perform high-complexity testing. Thistest is used forclinical purposes. It should not be regarded as investigational or forresearch.Testperformed at [facility], [facility] [place] [address]. CLIA Number: [id number] performed by Natalee Bolanos, PhD, HCLDNucleated RBC Auto (Bld) [#/Vol]Ordered By: Valentin Leonard on 28-42-8113Vieuhaibt RBC (Bld) [#/Vol]10*3/uL<0.01[facility] TownshipNucleated erythrocytes [Presence] in Blood by Automated count Ordered By: Valentin Leonard on 51-88-3143Rrqwxrjob RBC Auto Ql (Bld)0.0 /100{WBC}[facility] TownshipPlatelet mean volume Auto (Bld) [Entitic vol]Ordered By: Valentin Leonard on 88-18-8413Uzpyiecm mean volume (Bld) [Entitic vol]9.9 fL9.0-12.7FMercy HealthPlatelets Auto (Bld) [#/Vol]Ordered By: Valentin Leonard on 86-61-8855Sotlsxgaq (Bld) [#/Vol]295 10*3/yJ921-172SpaekfqswKettering Health Washington TownshipProtein [Mass/volume] in Serum or PlasmaOrdered By: Valentin Leonard on 96-60-1160Gjqijxc [Mass/Vol]5.9 g/dLLow 6.3-8.0[facility] TownshipRBC Auto (Bld) [#/Vol]Ordered By: Valentin Leonard on 85-42-6675OEK (Bld) [#/Vol]3.09 10*6/uLLow3.90-5.20[facility]al Hospitalerum or plasma anion gap determinationOrdered By: Valentin Leonard on 07-34-7369Kkaiu gap [Moles/Vol]10 mmol/L8-15[facility] Behavioral Hospitalerum or plasma erythropoietin (EPO) measurement (units/volume) Ordered By: Valentin Leonard on 95-87-3727Pvnpmlfxmuecae (EPO) Qn26.4 mIU/mLHigh 2.6-18.5FMercy HealthVit B12 SerPl-mCncon 07-15-2025 Cobalamin (Vitamin B12) [Mass/Vol]1457 pg/iWQzhj792-9740LkzelrhjbMain Campus Medical CenterComcorewell health big rapids hospital on above:Order Comment: Specimen Type: BLOOD SPECIMEN [facility]ing Facility: [facility] Address: [address] [place] [address]Vojdxggwy By: #### 06758-0, 2284-8, 2132-9, 2276-4 #### [facility] CLIA [id number] [address] [place], [place] [address] [place] OF WHITE HOSPITALCNPNon [id number] Telephone (NCCAP) LASHAUN JOAQUIN ([id number]) 1940 F Date Time Provider Department 07/10/25 [...] Hathaway's office Please return the call at [phone] KERRY Menendez Felicia, RN 07/10/2025 12:07 PM [...] (None) Encounter Status:Closed by YOLANDA COBIAN on 07/10/25NoalCMain Campus Medical CenterAlbumin [Mass/volume] in Serum or PlasmaOrdered By: Nathan Hathaway on 33-44-0368Nacbdtu [Mass/Vol]3.33 g/dLLow3.43-5.41[facility] W Auto Differential panel (Bld)on 21-69-0493Uvognnuwm (Bld) [#/Vol] 0.05 10*3/uLNormal<0.11CFisher-Titus Medical Center on above:Order Comment: Specimen Type: BLOOD SPECIMEN Ordering Facility: [facility] Address: [address] [place], [place] [address]Performed By: #### 68731-2 #### [facility] CLIA [id number] [address] [place] [address] [place] AMERICABasophils/100 WBC (Bld)0.9 % NormalUC Health on above:Order Comment: Specimen Type: BLOOD SPECIMEN Ordering Facility: [facility] Address: [address] [place], [place] [address]Performed By: #### 06518-2 #### [facility] CLIA [id number] [address] [place] [address] [place] AMERICADifferential cell count method Nom (Bld)AutoNormalClevelMercy Health Springfield Regional Medical Center on above:Order Comment: Specimen Type: BLOOD SPECIMEN Ordering Facility: [facility] Address: [address] [place], [place] [address]Performed By: #### 42594-6 #### [facility] CLIA [id number] [address] [place], [place] [address] [place] AMERICAEosinophils (Bld) [#/Vol] 0.18 10*3/uLNormal<0.46[facility] on above:Order Comment: Specimen Type: BLOOD SPECIMEN Ordering Facility: [facility] Address: [address] [place], [place] [address]Performed By: #### 97228-1 #### [facility] CLIA [id number] [address] [place] [address] [place] AMERICAEosinophils/100 WBC (Bld)3.3 %NormalUC Health on above:Order Comment: Specimen Type: BLOOD SPECIMEN Ordering Facility: [facility] Address: [address] [place], [place] [address]Performed By: #### 73534-5 #### [facility] CLIA [id number] [address] [place] [address] [place] AMERICAErythrocyte distribution width (RBC) [Ratio]13.5 %Vsvpcd74.5-15.0[facility] on above:Order Comment: Specimen Type: BLOOD SPECIMEN Ordering Facility: [facility] Address: [address] [place], [place] [address]Performed By: #### 77634-5 #### [facility] CLIA [id number] [address] [place] [address] [place] AMERICAHematocrit (Bld) [Volume fraction]27.8 %Low36.0-46.0[facility] on above:Order Comment: Specimen Type: BLOOD SPECIMEN Ordering Facility: [facility] Address: [address] [place], [place] [address]Performed By: #### 35762-2 #### [facility] CLIA [id number] [address] [place] [address] [place] AMERICAHemoglobin (Bld) [Mass/Vol] 9.0 g/dLLow11.5-15.5CFisher-Titus Medical Center on above:Order Comment: Specimen Type: BLOOD SPECIMEN Ordering Facility: [facility] Address: [address] [place], [place] [address]Performed By: #### 79163-6 #### [facility] CLIA [id number] [address] [place] [address] [place] AMERICAImmature granulocytes (Bld) [#/Vol]0.03 10*3/uLNormal<0.10[facility] on above:Order Comment: Specimen Type: BLOOD SPECIMEN Ordering Facility: [facility] Address: [address] [place], [place] [address]Performed By: #### 70781-5 #### [facility] CLIA [id number] [address] [place] [address] [place] AMERICAImmature granulocytes/100 WBC (Bld)0.5 %NormalUC Health on above:Order Comment: Specimen Type: BLOOD SPECIMEN Ordering Facility: [facility] Address: [address] [place], [place] [address]Performed By: #### 41967-1 #### [facility] CLIA [id number] [address] [place] [address] [place] AMERICALymphocytes (Bld) [#/Vol] 0.87 10*3/uLLow1.00-4.00[facility] on above:Order Comment: Specimen Type: BLOOD SPECIMEN Ordering Facility: [facility] Address: [address] [place], [place] [address]Performed By: #### 40346-8 #### [facility] CLIA [id number] [address] [place] [address] STATES OF WHITE HOSPITALLymphocytes/100 WBC (Bld) 15.9 %NormalUC Health on above:Order Comment: Specimen Type: BLOOD SPECIMEN Ordering Facility: [facility] Address: [address] [place], [place] [address]Performed By: #### 16460-4 #### [facility] CLIA [id number] [address] [place] [address] (RBC) [Entitic mass]28.8 dkTeykfa04.0-34.0[facility] on above:Order Comment: Specimen Type: BLOOD SPECIMEN Ordering Facility: [facility] Address: [address] [place], [place] [address]Performed By: #### 78899-8 #### [facility] CLIA [id number] [address] [place] [address] (RBC) [Mass/Vol]32.4 g/rTCpkqxz13.5-36.0[facility] on above:Order Comment: Specimen Type: BLOOD SPECIMEN Ordering Facility: [facility] Address: [address] [place], [place] [address]Performed By: #### 72956-9 #### [facility] CLIA [id number] [address] [place] [address] [place] AMERICAMCV (RBC) [Entitic vol]89.1 jQGvlqwn83.0-100.0[facility] on above:Order Comment: Specimen Type: BLOOD SPECIMEN Ordering Facility: [facility] Address: [address] [place], [place] [address]Performed By: #### 05803-7 #### [facility] IA [id number] [address] [place] [address] [place] AMERICAMonocytes (Bld) [#/Vol]0.61 10*3/uLNormal<0.87[facility] on above:Order Comment: Specimen Type: BLOOD SPECIMEN Ordering Facility: [facility] Address: [address] [place], [place] [address]Performed By: #### 37902-0 #### [facility] CLIA [id number] [address] [place] [address] [place] AMERICAMonocytes/100 WBC (Bld)11.2 %NormalUC Health on above:Order Comment: Specimen Type: BLOOD SPECIMEN Ordering Facility: [facility] Address: [address] [place], [place] [address]Performed By: #### 80697-9 #### [facility] CLIA [id number] [address] [place] [address] [place] AMERICANeutrophils (Bld) [#/Vol] 3.72 10*3/uLNormal1.45-7.50[facility] on above:Order Comment: Specimen Type: BLOOD SPECIMEN Ordering Facility: [facility] Address: [address] [place], [place] [address]Performed By: #### 48404-5 #### [facility] CLIA [id number] [address] [place] [address] [place] AMERICANeutrophils/100 WBC (Bld) 68.2 %NormalUC Health on above:Order Comment: Specimen Type: BLOOD SPECIMEN Ordering Facility: [facility] Address: [address] [place], [place] [address]Performed By: #### 71334-9 #### [facility] CLIA [id number] [address] [place] [address] [place] AMERICANucleated RBC (Bld) [#/Vol] 10*3/uLNormal<0.01[facility] on above:Order Comment: Specimen Type: BLOOD SPECIMEN Ordering Facility: [facility] Address: [address] [place], [place] [address]Performed By: #### 46989-3 #### [facility] CLIA [id number] [address] [place] [address] [place] AMERICANucleated RBC/100 WBC (Bld) [Ratio]0.0 /100 WBCNormalCFisher-Titus Medical Center on above:Order Comment: Specimen Type: BLOOD SPECIMEN Ordering Facility: [facility] Address: [address] [place], [place] [address]Performed By: #### 82728-6 #### [facility] CLIA [id number] [address] [place] [address] [place] AMERICAPlatelet mean volume (Bld) [Entitic vol]9.5 fLNormal9.0-12.7CFisher-Titus Medical Center on above: Order Comment: Specimen Type: BLOOD SPECIMEN Order[facility] Facility: [facility] Address: [address] [place], [place] [address]Performed By: #### 77734-0 #### [facility] CLIA [id number] [address] [place] [address] [place] AMERICAPlatelets (Bld) [#/Vol]275 10*3/kEGsxeoz873-037CghsmqopcUC Health on above:Order Comment: Specimen Type: BLOOD SPECIMEN Order[facility] Facility: [facility] Address: [address] [place], [place] [address]Performed By: #### 02520-9 #### [facility] CLIA [id number] [address] [place], [place] [address] (Bld) [#/Vol]3.12 10*6/uLLow3.90-5.20[facility] on above:Order Comment: Specimen Type: BLOOD SPECIMEN Order[facility] Facility[facility] Address: [address] [place], [place] [address]Performed By: #### 36934-3 #### [facility] CLIA [id number] [address] [place], [place] [address]WBC (Bld) [#/Vol]5.46 10*3/uLNormal3.70-11.00[facility] on above:Order Comment: Specimen Type: BLOOD SPECIMEN Order[facility] Facility: [facility] Address: [address] [place], [place] [address]Performed By: #### 52084-3 #### [facility] CLIA [id number] [address] [place], [place] [address]CNOVSPon 24-85-1805SDYBTQ Visit (SP) Office (HEMASA) LASHAUN JOAQUIN ([id number]) 1940 F Date Time Provider Department 07/08/25 10:00 AM PAOLO CASILLAS During your visit today, we recorded the following information about you: Temperature Pulse Respiration Blood pressure 96.8 degrees 66/minute 18/minute 178/68 Weight Height 91.8 kg 1.664 m Paolo Casillas APRN.[employer] 07/10/2025 6:42 PM Signed PATIENT NAME: Lashaun [...] HISTORY: FAMILY HISTORY Proble (more content not included)...NormalBarney Children'S Medical CenterCNPNon [id number] (AISYA) LASHAUN JOAQUIN ([id number]) 1940 F Date Time Provider Department 07/08/25 PAOLO CASILLAS During your visit today, we recorded the following information about you: Bessie SabinoKayla Kg 07/08/2025 11:24 AM Signed Please call Her daughter Marianna with today's lab results. [phone] Yolanda Cobian RN 07/10/2025 9:17 AM Signed [...] (None) Encounter Status:Closed by YOLANDA COBIAN on 07/10/25NormalCMain Campus Medical CenterComprehensive metabolic 2000 panelon 77-93-8591Hniywds [Mass/Vol]3.6 g/dLLow3.9-4.9CFisher-Titus Medical Center on above:Order Comment: Specimen Type: BLOOD SPECIMEN Order[facility] Facility[facility] Address: [address] [place], [place] [address]Performed By: #### 18618-9 #### [facility] CLIA [id number] [address] [place] [address] [place] AMERICAALP [Catalytic activity/Vol] 48 U/QGedaes12-180WslhxxulhUC Health on above:Order Comment: Specimen Type: BLOOD SPECIMEN Order[facility] Facility[facility] Address: [address] [place], [place] [address]Performed By: #### 33547-5 #### [facility] CLIA [id number] [address] [place], [place] [address] [place] AMERICAALT [Catalytic activity/Vol] 13 U/LNormal7-38[facility] on above:Order Comment: Specimen Type: BLOOD SPECIMEN Order[facility] Facility: [facility] Address: [address] [place], [place] [address]Performed By: #### 66948-2 #### [facility] CLIA [id number] [address] [place] [address] [place] AMERICAAnion gap [Moles/Vol]11 mmol/LNormal8-15[facility] on above:Order Comment: Specimen Type: BLOOD SPECIMEN Order[facility] Facility: [facility] Address: [address] [place], [place] [address]Performed By: #### 37419-8 #### [facility] CLIA [id number] [address] [place], [place] [address] [place] AMERICAAST [Catalytic activity/Vol] 22 U/JGemocu12-28QzelmvljbUC Health on above:Order Comment: Specimen Type: BLOOD SPECIMEN Order[facility] Facility: [facility] Address: [address] [place], [place] [address]Performed By: #### 50073-7 #### [facility] CLIA [id number] [address] [place] [address] [place] AMERICABilirubin [Mass/Vol]0.3 mg/dLNormal0.2-1.3CFisher-Titus Medical Center on above:Order Comment: Specimen Type: BLOOD SPECIMEN Ordering Facility: [facility] Address: [address] [place], [place] [address]Performed By: #### 85664-6 #### [facility] CLIA [id number] [address] [place] [address] [place] AMERICACalcium [Mass/Vol]8.9 mg/dL Normal8.5-10.2CFisher-Titus Medical Center on above:Order Comment: Specimen Type: BLOOD SPECIMEN [facility] Address: [address] [place], [place] [address]Performed By: #### 34126-8 #### [facility] CLIA [id number] [address] [place], [place] [address] [place] AMERICAChloride [Moles/Vol]106 mmol/FHmwbfq89-123MfvfmxgomUC Health on above:Order Comment: Specimen Type: BLOOD SPECIMEN Order[facility] Facility[facility] Address: [address] [place], [place] [address]Performed By: #### 68673-7 #### [facility] CLIA [id number] [address] [place], [place] [address] [place] AMERICACO2 [Moles/Vol]24 mmol/L Dpbuvn45-26NtvhwqgzxUC Health on above:Order Comment: Specimen Type: BLOOD SPECIMEN Order[facility] Facility[facility] Address: [address] [place], [place] [address]Performed By: #### 30958-4 #### [facility] CLIA [id number] [address] [place] [address] [place] AMERICACreatinine [Mass/Vol]1.65 mg/dLHigh0.58-0.96[facility] on above:Order Comment: Specimen Type: BLOOD SPECIMEN Order[facility] Facility[facility] Address: [address] [place], [place] [address]Performed By: #### 81082-4 #### [facility] CLIA [id number] [address] [place], [place] [address] [place] AMERICAeGFRcr SerPlBld CKD-EPI 2020 31 mL/min/1.73m???Low>=60[facility] on above:Order Comment: Specimen Type: BLOOD SPECIMEN Ordering Facility: [facility] Address: [address] [place], [place] [address]Result Comment: Estimated Glomerular Filtration Rate (eGFR) is [...] not accurately reflect actual GFR.Performed By: #### 99872-2 #### [facility] CLIA [id number] [address] [place] [address] [place] AMERICAGlucose [Mass/Vol]100 mg/dL Ijti63-68OwkwozncxUC Health on above:Order Comment: Specimen Type: BLOOD SPECIMEN Ordering Facility: [facility] Address: [address] [place], [place] [address]Result Comment: The [place] Diabetes Association (ADA) provides guidance for cutoff [...] Standards of Medical Care in Diabetes 2016, [place] [employer]. Diabetes Care. 2016.39(Suppl 1).Performed By: #### 35769-3 #### [facility] CLIA [id number] [address] [place], [place] [address] [place] AMERICAPotassium [Moles/Vol]5.3 mmol/LHigh3.7-5.1CFisher-Titus Medical Center on above:Order Comment: Specimen Type: BLOOD SPECIMEN Order[facility] Facility: [facility] Address: [address] [place], [place] [address]Performed By: #### 91228-0 #### [facility] IA [id number] [address] [place], [place] [address] [place] AMERICAProtein [Mass/Vol]5.8 g/dL Low6.3-8.0[facility] on above:Order Comment: Specimen Type: BLOOD SPECIMEN Order[facility] Facility[facility] Address: [address] [place], [place] [address]Performed By: #### 62433-7 #### [facility] CLIA [id number] [address] [place] [address] [place] AMERICASodium [Moles/Vol]141 mmol/L Jwhmdt290-974ZgtqpyhovUC Health on above:Order Comment: Specimen Type: BLOOD SPECIMEN Order[facility] Facility[facility] Address: [address] [place], [place] [address]Performed By: #### 53715-8 #### [facility] CLIA [id number] [address] [place] [address] [place] AMERICAUrea nitrogen [Mass/Vol]27 mg/dLHigh7-21[facility] on above:Order Comment: Specimen Type: BLOOD SPECIMEN Order[facility] Facility: [facility] Address: [address] [place], [place] [address]Performed By: #### 93790-0 #### [facility] CLIA [id number] [address] [place] [address] [place] AMERICAGlomerular filtration rate [Volume Rate/Area] in Serum, Plasma or Blood by CreatinineOrdered By: Nathan Hathaway on 88-80-3944Mwpacqwvnu filtration rate [Volume Rate/Area] in Serum, Plasma or Blood by Hfukicqvyg58 mL/min/1.73m???Low>=60[facility] Comment on above:Estimated Glomerular Filtration Rate (eGFR) [...] not accurately reflect actual GFR.IMMUNOFIXATION SCREEN, SERUMon 25-31-3095GLTORNZACZHYNL (MPA)Poorly defined region of restricted mobility in [...] further for monoclonal gammopathy. Clinical correlation is necessary.NormalUC Health on above:Order Comment: Specimen Type: BLOOD SPECIMEN Order[facility] Facility[facility] Address: [address] [place], [place] [address]Performed By: #### [id number] #### [facility] CLIA [id number] [address] [place] [address] [place] poorly defined region of restricted mobility is present that may represent an M protein. AbnormalNo M protein is identified.[facility] on above: Order Comment: Specimen Type: BLOOD SPECIMEN Ordering Facility: [facility] Address: [address] [place], [place] [address]Performed By: #### [id number] #### [facility] CLIA [id number] [address] [place] [address] [place]FF [place] ([facility])Reviewed by Dr. Jennifer David [facility] on above:Order Comment: Specimen Type: BLOOD SPECIMEN Ordering Facility: [facility] Address: [address] [place], [place] [address]Performed By: #### [id number] #### [facility] CLIA [id number] [address] [place] [address] [place] OF AMERICAIMMUNOGLOBULINS,IGG,IGA,IGM on 55-11-5451FhJ [Mass/Vol]64 mg/pREqs25-122CghqgpblpUC Health on above:Order Comment: Specimen Type: BLOOD SPECIMEN Ordering Facility: [facility] Address: [address] [place], [place] [address]Performed By: #### SERIMM #### [facility] CLIA [id number] [address] [place], [place] [id number] [place] OF AMERICAIgG [Mass/Vol]280 mg/dLLow 700-1600[facility] on above:Order Comment: Specimen Type: BLOOD SPECIMEN Ordering Facility: [facility] Address: [address] [place], [place] [address]Performed By: #### SERIMM #### [facility] CLIA [id number] [address] [place] [address] [place] AMERICAIgM [Mass/Vol]317 mg/dLHigh 40-230[facility] on above:Order Comment: Specimen Type: BLOOD SPECIMEN Ordering Facility: [facility] Address: [address] [place], [place] [address]Performed By: #### SERIMM #### [facility] CLIA [id number] [address] [place] [address] [place] AMERICAIgA [Mass/volume] in Serum or PlasmaOrdered By: Fanny Bedoya on 86-50-4833TpF [Mass/Vol]64 mg/jRJlt29-415 [facility] TownshipIgG [Mass/volume] in Serum or PlasmaOrdered By: Fanny Bedoya on 29-36-9847YuZ [Mass/Vol]280 mg/qDCkz169-4068OemwvshrgKettering Health Washington TownshipIgM [Mass/volume] in Serum or PlasmaOrdered By: Fanny Bedoya on 43-54-3942VjH [Mass/Vol]317 mg/uHUbpb70-741FabyigkqhKettering Health Washington Township Immunoglobulin light chains.kappa.free [Mass/volume] in SerumOrdered By: Nathan Hathaway on 46-06-3514Zfwnnmubwbtaha light chains.kappa.free (S) [Mass/Vol] 300.9 mg/LHigh3.3-19.4FMercy HealthComment on above:Rarely, increased serum free light chains levels may not be detected or accurately quantified due to prozone phenomenon or in high viscosity samples using this immunoturbidimetric assay. Correlation with other laboratory results and clinical findings is recommended. The [place] Free Light Chain was performed using the Binding Site Optilite immunoturbidimetric method. Result obtained with different assay methods or kits cannot be used interchangeably.Immunoglobulin light chains.kappa.free/Immunoglobulin light chains.lambda.free [MassOrdered By: Nathan Hathaway on 06-88-3830Leacbudiqcwywx light chains.kappa.free/Immunoglobulin light chains.lambda.free (S) [Mass ratio]12.64 High0.26-1.65[facility] TownshipImmunoglobulin light chains.lambda.free [Mass/volume] in Serum or PlasmaOrdered By: Nathan Hathaway on 85-16-7050Hjrbiystvhtfdq light chains.lambda.free [Mass/Vol]23.8 mg/L5.7-26.3 [facility] TownshipComment on above:Rarely, increased serum free light chains levels may not be detected or accurately quantified due to prozone phenomenon or in high viscosity samples using this immunoturbidimetric assay. Correlation with other laboratory results and clinical findings is recommended. The [place] Free Light Chain was performed using the Binding Site Optilite immunoturbidimetric method. Result obtained with differentassay methods or kits cannot be used interchangeably.KAPPA/BOWLES,FREE,SERon 94-36-7711Tiyfhccvxnnkdb light chains.kappa.free (S) [Mass/Vol]300.9 mg/LHigh3.3-19.4CFisher-Titus Medical Center on above:Order Comment: Specimen Type: BLOOD SPECIMEN Ordering Facility: [facility] Address: [address] [place], [place] [address]Result Comment: Rarely, increased serum free light chains levels may not be detected or accurately quantified due to prozone phenomenon or in high viscosity samples using this immunoturbidimetric assay. Correlation with other laboratory results and clinical findings is recommended. The [place] Free Light Chain was performed using the Binding Site Optilite immunoturbidimetric method. Result obtained with different assay methods or kits cannot be used interchangeably.Performed By: #### KLFRS #### [facility] CLIA [id number] [address] [place] [address] [place] AMERICAImmunoglobulin light chains.kappa/Immunoglobulin light chains.lambda (S) [Mass ratio]12.64High 0.26-1.65[facility] on above:Order Comment: Specimen Type: BLOOD SPECIMEN Ordering Facility: [facility] Address: [address] [place], [place] [address]Performed By: #### KLFRS #### [facility] CLIA [id number] [address] [place] [address] [place] AMERICAImmunoglobulin light chains.lambda.free [Mass/Vol]23.8 mg/LNormal5.7-26.3CMain [facility] Comment on above:Order Comment: Specimen Type: BLOOD SPECIMEN Ordering Facility: [facility] Address: [address] [place], [place] [address]Result Comment: Rarely, increased serum free light chains [...] be used interchangeably.Performed By: #### KLFRS #### [facility] CLIA [id number] [address] [place] [address] [place] OF AMERICALaboratory - Chemistry and Chemistry - challengeOrdered By: Nathan Hathaway on 77-76-7806Llenxzl [Mass/Vol] 3.6 g/dLLow3.9-4.9[facility] TownshipALP [Catalytic activity/Vol] 48 U/Y35-667WdhdnaujfKettering Health Washington TownshipALT [Catalytic activity/Vol]13 U/L 7-38[facility] TownshipAST [Catalytic activity/Vol]22 U/L13-35 [facility] TownshipBilirubin [Mass/Vol]0.3 mg/dL0.2-1.3FMercy HealthCalcium [Mass/Vol]8.9 mg/dL8.5-10.2FMercy HealthChloride [Moles/Vol]106 mmol/X16-872GowxlurutKettering Health Washington TownshipCO2 [Moles/Vol]24 mmol/S53-74TboawwvxpKettering Health Washington TownshipCreatinine [Mass/Vol]1.65 mg/dLHigh0.58-0.96[facility] TownshipGlucose [Mass/Vol]100 mg/rRGxcl98-31BmnpfhptlKettering Health Washington TownshipComment on above: The [place] Diabetes Association (ADA) provides guidance for cutoff [...] diabetes.Reference: [employer] [facility] in Diabetes 2016, [place] Diabetes Association. Diabetes Care. 2016.39(Suppl 1).Potassium [Moles/Vol]5.3 mmol/LHigh3.7-5.1FMercy HealthProtein [Mass/Vol]0.00 g/dL<=0.00[facility] Sodium [Moles/Vol]141 mmol/B768-292EanwncsyeKettering Health Washington TownshipUrea nitrogen [Mass/Vol]27 mg/dLHigh7-21[facility] TownshipNo Panel InformationOrdered By: Nathan Hathaway on 79-61-3775Qzqxzkmztdcsgm Interpretation [facility] TownshipLeuk/Lymph Sign Pathologist (Misc)Reviewed by Dr. Jennifer David [facility] HospitalMiscellaneous Test 6See commentKettering Health Washington TownshipComment on above:Not Applicable. Miscellaneous Test CommentReviewed by Dr. Jennifer David [facility] HospitalProtein Electrophoresis InterpretKettering Health Washington Township Protein Electrophoresis NoteNo definitive M protein is identified on protein electrophoresis.No definitive M protein is identified on protein electrophoresis.[facility] Hospitalerum ImmunofixationAbnormalNo M protein is identified.[facility] TownshipPROTEIN ELECTROPHORESIS SERUM (P)on 57-04-5389Uxdncoj [Mass/Vol]3.33 g/dLLow3.43-5.41[facility] hospital - westComment on above:Order Comment: Specimen Type: BLOOD SPECIMEN Ordering Facility: [facility] Address: [address] [place], [place] [address]Performed By: #### [id number] #### [facility] CLIA [id number] [address] [place] [address] [place] AMERICAAlpha 1 globulin Elph [Mass/Vol]0.42 g/dLNormal0.18-0.43[facility] on above: Order Comment: Specimen Type: BLOOD SPECIMEN Ordering Facility: [facility] Address: [address] [place], [place] [address]Performed By: #### [id number] #### [facility] CLIA [id number] [address] [place] [address] [place] AMERICAAlpha 2 globulin Elph [Mass/Vol]0.86 g/dLNormal0.42-0.98[facility] on above: Order Comment: Specimen Type: BLOOD SPECIMEN Ordering Facility: [facility] Address: [address] [place], [place] [address]Performed By: #### 72463-7 #### [facility] CLIA [id number] [address] [place] [address] [place] AMERICABeta globulin Elph [Mass/Vol]0.53 g/dLLow0.61-1.17[facility] on above:Order Comment: Specimen Type: BLOOD SPECIMEN Ordering Facility: [facility] Address: [address] [place], [place] [address]Performed By: #### 82506-2 #### [facility] CLIA [id number] [address] [place] [address] [place] AMERICAGamma globulin Elph [Mass/Vol]0.37 g/dLLow0.53-1.51[facility] on above:Order Comment: Specimen Type: BLOOD SPECIMEN Ordering Facility: [facility] Address: [address] [place], [place] [address]Performed By: #### 56478-1 #### [facility] CLIA [id number] [address] [place] [address] [place] AMERICAINTERPRETATION COMMENT FOR PROTEIN ELECTROPHORESISHypogammaglobulinemia is present, which can be seen in the setting of monoclonal gammopathy. If clinically indicated, monoclonal protein analysis and serum free light chain analysis are suggested to evaluate further for monoclonal gammopathy.NormalUC Health on above:Order Comment: Specimen Type: BLOOD SPECIMEN Ordering Facility: [facility] Address: [address] [place], [place] [address]Performed By: #### 95760-6 #### [facility] CLIA [id number] [address] [place] [address] [place] OF AMERICAM-PROTEIN LOCATIONNormal [facility] on above:Order Comment: Specimen Type: BLOOD SPECIMEN Ordering Facility: [facility] Address: [address] [place], [place] [address]Result Comment: Not Applicable. Performed By: #### 40159-8 #### [facility] CLIA [id number] [address] [place] [address] [place] OF AMERICAProtein Fractions [Interp]No definitive M protein is identified on protein electrophoresis.NormalNo definitive M protein is identified on protein electrophoresis.[facility] on above:Order Comment: Specimen Type: BLOOD SPECIMEN Ordering Facility: [facility] Address: [address] [place], [place] [address]Performed By: #### 79921-3 #### [facility] CLIA [id number] [address] [place] [address] [place] AMERICAProtein.monoclonal Elph [Mass/Vol]0.00 g/dLNormal<=0.00[facility] on above:Order Comment: Specimen Type: BLOOD SPECIMEN Ordering Facility: [facility] Address: [address] [place], [place] [address]Performed By: #### 88900-5 #### [facility] CLIA [id number] [address] [place] [address] STATES OF AMERICASPE STAFF REVIEWReviewed by Dr. Jennifer David MDNoalCFisher-Titus Medical Center on above:Order Comment: Specimen Type: BLOOD SPECIMEN Ordering Facility: [facility] Address: [address] [place], [place] [address]Performed By: #### 71652-0 #### [facility] CLIA [id number] [address] [place] [address] [place] OF AMERICAProt SerPl-mCncon 07-08-2025 Protein [Mass/Vol]5.5 g/dLLow6.3-8.0[facility] on above: Order Comment: Specimen Type: BLOOD SPECIMEN Order[facility] Facility: [facility] Address: [address] [place], [place] [address]Performed By: #### 2885-2 #### [facility] CLIA [id number] [address] [place] [address] [place] AMERICAProtein [Mass/volume] in Serum or PlasmaOrdered By: Fanny Bedoya on 69-67-9704Chxbbfa [Mass/Vol]5.5 g/dL Low6.3-8.0[facility] Hospitalerum or plasma alpha 1 globulin measurement by electrophoresis (mass/volume)Ordered By: Nathan Hathaway on 08-55-4434Trggo 1 globulin Elph [Mass/Vol]0.42 g/dL0.18-0.43[facility] Hospitalerum or plasma alpha 2 globulin measurement by electrophoresis (mass/volume)Ordered By: Nathan Hathaway on 57-51-4618Poati 2 globulin Elph [Mass/Vol]0.86 g/dL0.42-0.98[facility] Hospitalerum or plasma anion gap determinationOrdered By: Nathan Hathaway on 88-41-4209Kkgdo gap [Moles/Vol]11 mmol/L8-15[facility] Hospitalerum or plasma beta globulin measurement by electrophoresis (mass/volume)Ordered By: Nathan Hathaway on 85-86-9040Vfbu globulin Elph [Mass/Vol]0.53 g/dLLow0.61-1.17[facility] Hospitalerum or plasma gamma globulin measurement by electrophoresis (mass/volume)Ordered By: Nathan Hathaway on 16-63-5917Xxrmc globulin Elph [Mass/Vol]0.37 g/dLLow0.53-1.51[facility] CNPNon 42-21-4100VQWCWwcfiznou (HEMASA) LASHANU JOAQUIN ([id number]) 1940 F Date Time Provider Department 07/06/25 [...] Date Reviewed: 11/07/2023 Reviewed by: Paolo Casillas APRN.[employer] - Fully Assessed Reason for Visit: Lab Orders [2108] Cmt: nt Primary Visit Diagnosis:Abnormal SPEP [R77.8] Order(s):COMPLETE BLOOD COUNT AND DIFFERENTIAL [SQCBCDIF] Order #: [id number] FUTURE COMPREHENSIVE METABOLIC PANEL [SQCMP] Order #: [id number] FUTURE PROTEIN ELECTROPHORESIS SERUM W/INTERP [SQSEPG] Order #: [id number] FUTURE MONOCLONAL PROTEIN, SERUM (BLOOD) [SQSERMPA] Order #: [id number] FUTURE Prescriptions as of 07/06/2025 - carvedilol [...] (None) Encounter Status:Closed by FANNY BEDOYA on 07/06/25NoalCMain Campus Medical CenterMicroalbumin [Mass/volume] in UrineOrdered By: Nathan Hathaway on 33-38-2493Qhlmmbq DL <= 20 mg/L (U) [Mass/Vol]20.1 mg/dL<=30.0[facility] TownshipNo Panel InformationOrdered By: Nathan Hathaway on 34-16-9824Gxfjl Random Gkduubixeo84.52 mg/dL20.00-300.00[facility] TownshipUrine microalbumin/creatinine mass ratioOrdered By: Nathan Hathaway on 06-24-2025 Albumin/Creatinine DL <= 20 mg/L (U) [Mass ratio]237.8 mg/gHigh0.0-29.9[facility] TownshipComment on above:NO MICROALBUMINURIA 0-29 MG/GCLINICAL MICROALBUMINURIA 30-300 MG/GMACROALBUMINURIA >300 MG/GAlbumin [Mass/volume] in Serum or PlasmaOrdered By: Nathan Hathaway on 61-74-3814Xfkeiif [Mass/Vol]3.2 g/dL 2.9-4.4FMercy HealthBasophils Auto (Bld) [#/Vol]Ordered By: Nathan Hathaway on 04-51-6468Jrnyoqsqk (Bld) [#/Vol]0.0 10 3/uL0.0-0.1FMercy HealthBasophils/100 WBC Auto (Bld)Ordered By: Nathan Hathaway on 48-06-1173Izlslzkrw/100 WBC (Bld)0.7 %0.2-2.0[facility] Cholesterol in LDL Calc [Mass/Vol]Ordered By: Nathan Hathaway on 06-23-2025 Cholesterol in LDL [Mass/Vol]60.2 mg/dLKettering Health Washington TownshipComment on above:<100 mg/dl IVXTESS419-626 mg/dl NEAR OR ABOVE TPWTYBK832-062 mg/dl BORDERLINE NPGI318-327 mg/dl HIGH>190 mg/dl VERY HIGHCholesterol in VLDL Calc [Mass/Vol]Ordered By: Nathan Hathaway on 98-82-0544Suxyxspdzcq in VLDL [Mass/Vol] 17.8 mg/dLKettering Health Washington TownshipEosinophils/100 WBC Auto (Bld)Ordered By: Nathan Hathaway on 73-84-7978Xboakmbkrmk/100 WBC (Bld)2.7 %0.9-7.0[facility] TownshipErythrocyte distribution width Auto (RBC) [Ratio]Ordered By: Nathan Hathaway on 73-19-4947Pmrsglmeaca distribution width (RBC) [Ratio]13.8 %11.0-15.0[facility] TownshipGlobulin Calc (S) [Mass/Vol]Ordered By: Nathan Hathaway on 29-68-0450Tqchwhwe (S) [Mass/Vol]3.3 g/dLKettering Health Washington TownshipGlomerular filtration rate (GFR) estimation in non- AmericanOrdered By: Nathan Hathaway on 65-81-8815FZR/1.73 sq M.predicted among non-blacks MDRD (S/P/Bld) [Vol rate/Area]35 mL/min/{1.73_m2}Low>=60 mL/min/1.73m 2FMercy HealthHematocrit Auto (Bld) [Volume fraction]Ordered By: Nathan Hathaway on 08-41-0579Ebfjqycdxx (Bld) [Volume fraction]28.3 %Low 36.0-48.0[facility] TownshipHemoglobin [Mass/volume] in Blood Ordered By: Nathan Hathaway on 39-60-5839Bwjmxgeqdk (Bld) [Mass/Vol]9.3 g/dLLow 12.0-16.0[facility] TownshipIgA [Mass/volume] in Serum or Plasma Ordered By: Nathan Hathaway on 99-84-0621LkD [Mass/Vol]62 mg/rNYcaqfdae03-654 [facility] TownshipIgG [Mass/volume] in Serum or PlasmaOrdered By: Nathan Hathaway on 56-20-0442WhS [Mass/Vol]330 mg/cNWunpskqx811-9222VxryuoltnKettering Health Washington TownshipIgM [Mass/volume] in Serum or PlasmaOrdered By: Nathan Hathaway on 43-47-2454TiW [Mass/Vol]325 mg/jJAtkvnkhr75-457VsysrocnvKettering Health Washington TownshipImmunoglobulin light chains.kappa.free [Mass/volume] in Serum Ordered By: Nathan Hathaway on 45-02-2516Jtsburcueqnyzh light chains.kappa.free (S) [Mass/Vol]224.6 mg/LAbnormal3.3-19.4FMercy Health Immunoglobulin light chains.kappa.free/Immunoglobulin light chains.lambda.free [MassOrdered By: Nathan Hathaway on 06-17-5559Skqoqhkvwbclxs light chains.kappa.free/Immunoglobulin light chains.lambda.free (S) [Mass ratio]10.59 Abnormal0.26-1.65[facility] TownshipComment on above:Performed at: [address], [place] [id number] Director: Carlos Witt PhD, Phone: [phone] light chains.lambda.free [Mass/volume] in Serum or PlasmaOrdered By: Nathan Hathaway on 06-23-2025 Immunoglobulin light chains.lambda.free [Mass/Vol]21.2 mg/L5.7-26.3FMercy HealthIron binding capacity [Mass/volume] in Serum or Plasma Ordered By: Nathan Hathaway on 76-58-1385Prov binding capacity [Mass/Vol]245.0 ug/gDYov532.0-450.0[facility] TownshipIron saturation [Mass Fraction] in Serum or PlasmaOrdered By: Nathan Hathaway on 75-11-8066Tado saturation [Mass fraction]14.3 %[facility] TownshipLaboratory - Chemistry and Chemistry - challengeOrdered By: Nathan Hathaway on 14-07-3986MUH [Catalytic activity/Vol]47 U/R73-007HpnlgclgoK[facility]tering Health Washington TownshipALT [Catalytic activity/Vol]18 U/J43-04GrstueclzKettering Health Washington TownshipAST [Catalytic activity/Vol]18 U/N82-65QaudpdksrKettering Health Washington TownshipBilirubin [Mass/Vol]0.5 mg/dL0.2-1.0[facility] TownshipCalcium [Mass/Vol]8.9 mg/dL8.5-10.1FMercy HealthChloride [Moles/Vol]104 mmol/L 98-107[facility] TownshipCholesterol [Mass/Vol]123 mg/dL<=200 [facility] TownshipCholesterol in HDL [Mass/Vol]45 mg/dL40-60 [facility] TownshipComment on above:> or =60 mg/dl - LOW CARDIOVASCULAR RISK<40 mg/dl - HIGH CARDIOVASCULAR RISKCO2 [Moles/Vol]30.2 mmol/L21.0-32.0[facility] TownshipCobalamin (Vitamin B12) [Mass/Vol]1089 pg/yS110-1763WqwnhubltKettering Health Washington TownshipComment on above: Performed at: - [facility] [address] [id number] Director: Carlos Witt PhD, Phone: [phone] [Mass/Vol]1.45 mg/dLHigh0.55-1.02[facility] TownshipFerritin [Mass/Vol]176.0 ng/mL8.0-252.0[facility] TownshipFree T4 [Mass/Vol]0.97 ng/dL 0.76-1.46[facility] TownshipGFR/1.73 sq M.predicted MDRD (S/P/Bld) [Vol rate/Area]42 mL/min/{1.73_m2}Low>=60 mL/min/1.73m 2FMercy HealthGlucose [Mass/Vol]94 mg/kO61-731YntgvafvjKettering Health Washington Township Iron [Mass/Vol]35.0 ug/dLLow50.0-170.0[facility] TownshipPotassium [Moles/Vol]4.3 mmol/L3.5-5.1FMercy HealthProtein [Mass/Vol] 0.2 g/dLAbnormalNot ObservedKettering Health Washington TownshipProtein [Mass/Vol] 6.5 g/dL6.4-8.2FTriHealth Bethesda North Hospitalodium [Moles/Vol]142 mmol/L 136-145[facility] TownshipTriglyceride [Mass/Vol]89 mg/dL<=150 [facility] TownshipTSH Qn5.101 m[IU]/LHigh0.358-3.740[facility] TownshipUrea nitrogen [Mass/Vol]22.0 mg/dLHigh7.0-18.0[facility] TownshipUrea nitrogen/Creatinine [Mass ratio]15.2 mg/mgKettering Health Washington TownshipLaboratory - Hematology and Cell countsOrdered By: Nathan Hathaway on 17-93-3416Hefvzgla granulocytes/100 WBC (Bld)0.4 %0.0-0.5 [facility] TownshipLeukocytes [#/volume] corrected for nucleated erythrocytes in Blood by Automated counOrdered By: Nathan Hathaway on 06-23-2025 WBC corrected for nucl RBC Auto (Bld) [#/Vol]5.6 10 3/uL4.0-11.0[facility] TownshipLymphocytes Auto (Bld) [#/Vol]Ordered By: Nathan Hathaway on 35-01-6488Btlmgdixixj (Bld) [#/Vol]0.8 10 3/uLLow1.2-3.8[facility] TownshipLymphocytes/100 WBC Auto (Bld)Ordered By: Nathan Hathaway on 95-16-0882Jqzcnnkewrp/100 WBC (Bld)14.4 %Low20.5-60.0[facility] HospitalH Auto (RBC) [Entitic mass]Ordered By: Nathan Hathaway on 39-16-5745MUI (RBC) [Entitic mass]29.0 pg26.7-34.0[facility] TownshipMCHC Auto (RBC) [Mass/Vol]Ordered By: Nathan Hathaway on 55-35-1107YTVN (RBC) [Mass/Vol]32.9 g/dL29.9-35.2FMercy HealthMCV Auto (RBC) [Entitic vol] Ordered By: Nathan Hathaway on 32-67-6088UDE (RBC) [Entitic vol]88.2 fL81.0-99.0 [facility] TownshipMonocytes Auto (Bld) [#/Vol]Ordered By: Nathan Hathaway on 43-51-5631Xjawqshzv (Bld) [#/Vol]0.5 10 3/uL0.3-0.8[facility] TownshipMonocytes/100 WBC Auto (Bld)Ordered By: Nathan Hathaway on 20-44-0502Vbeqbxefg/100 WBC (Bld)8.7 %1.7-12.0[facility] Neutrophils Auto (Bld) [#/Vol]Ordered By: Nathan Hathaway on 02-15-0666Zvqdwhexhqt (Bld) [#/Vol]4.1 10 3/uL1.4-6.5FMercy HealthNeutrophils/100 WBC Auto (Bld)Ordered By: Nathan Hathaway on 82-85-1997Jbthbgwezxj/100 WBC (Bld) 73.1 %43.0-75.0[facility] TownshipNo Panel InformationOrdered By: Nathan Hathaway on 74-19-6540Xthocvidoyp # (Auto)0.2 10 3/uL0.0-0.7FMercy HealthFolate17.90 ng/mL8.60-58.90[facility] TownshipImmature Granulocyte # (Auto)0.02 10 3/uL0.00-0.03[facility] TownshipProtein Electrophoresis NoteComment.[facility] TownshipComment on above:Protein electrophoresis scan will follow via computer,mail, or wine and spirits clerk delivery.Platelet mean volume Auto (Bld) [Entitic vol] Ordered By: Nathan Hathaway on 84-36-1781Tvmxuhxv mean volume (Bld) [Entitic vol] 10.2 fL9.5-13.5FMercy HealthPlatelets Auto (Bld) [#/Vol] Ordered By: Nathan Hathaway on 47-93-7656Cqgzybuag (Bld) [#/Vol]270 10 3/xJ762-761 [facility] TownshipProtein [Mass/volume] in Serum or PlasmaOrdered By: Nathan Hathaway on 13-19-5822Gucdega [Mass/Vol]5.7 g/dLAbnormal6.0-8.5 [facility] TownshipRBC Auto (Bld) [#/Vol]Ordered By: Nathan Hathaway on 10-91-5967EYA (Bld) [#/Vol]3.21 10 6/uLLow4.20-5.40[facility] Hospitalerum globulin measurement (mass/volume)Ordered By: Nathan Hathaway on 50-00-5062Jwduknww (S) [Mass/Vol]2.5 g/dL2.2-3.9[facility] Hospitalerum or plasma albumin/globulin mass ratioOrdered By: Nathan Hathaway on 02-02-2987Emyoqnx/Globulin [Mass ratio]1.0 {ratio}[facility] TownshipAlbumin/Globulin [Mass ratio]1.3 {ratio}0.7-1.7FTriHealth Bethesda North Hospitalerum or plasma alpha 1 globulin measurement by electrophoresis (mass/volume)Ordered By: Nathan Hathaway on 51-38-4123Rthbg 1 globulin Elph [Mass/Vol]0.3 g/dL0.0-0.4FTriHealth Bethesda North Hospitalerum or plasma alpha 2 globulin measurement by electrophoresis (mass/volume)Ordered By: Nathan Hathaway on 45-27-3177Ygmdy 2 globulin Elph [Mass/Vol]1.0 g/dL0.4-1.0[facility] Hospitalerum or plasma anion gap determinationOrdered By: Nathan Hathaway on 25-83-6470Wacox gap [Moles/Vol]12.1 mmol/LFMercy Health Serum or plasma beta globulin measurement by electrophoresis (mass/volume) Ordered By: Nathan Hathaway on 07-66-7655Sgsl globulin Elph [Mass/Vol]0.7 g/dL 0.7-1.3FTriHealth Bethesda North Hospitalerum or plasma gamma globulin measurement by electrophoresis (mass/volume)Ordered By: Nathan Hathaway on 54-98-9995Hgype globulin Elph [Mass/Vol]0.5 g/dL0.4-1.8[facility] Hospitalerum or plasma immunoelectrophoresis interpretationOrdered By: Nathan Hatahway on 65-95-7356Jjfrnfeveipxek IEP [Interp]CommentAbnormal.[facility] TownshipComment on above:Immunofixation shows IgM monoclonal protein with kappalight chain specificity.Serum or plasma total cholesterol/high density lipoprotein (HDL) cholesterol mass ratOrdered By: Nathan Hathaway on 71-12-3688Elmcquixipk.total/Cholesterol in HDL [Mass ratio]2.7 {ratio}[facility] TownshipComment on above:3.3 - 4.4 LOW RISK4.4 - 7.1 AVERAGE RISK7.1 - 11.0 MODERATE RISK>11.0 HIGH RISKEstimated glomerular filtration rate (GFR) non- Americanon 92-37-6256CHQ/1.73 sq M.predicted among non-blacks MDRD (S/P/Bld) [Vol rate/Area]Estimated glomerular filtration rate (GFR) non- AmericanLow>=60 mL/min/1.73m [address] [place], [place] [address]GFR/1.73 sq M.predicted among non-blacks MDRD (S/P/Bld) [Vol rate/Area]31 mL/min/{1.73_m2}Low>=60 mL/min/1.73m [address] [place] [address] Laboratory - Chemistry and Chemistry - challengeon 22-54-9148Xdqutpw [Mass/Vol] 8.9 mg/dL8.5-10.1FMercy HealthChloride [Moles/Vol]105 mmol/L 98-107[facility] TownshipCO2 [Moles/Vol]30.7 mmol/L21.0-32.0 [facility] TownshipCreatinine [Mass/Vol]1.60 mg/dLHigh0.55-1.02 [facility] TownshipGFR/1.73 sq M.predicted MDRD (S/P/Bld) [Vol rate/Area]37 mL/min/{1.73_m2}Low>=60 mL/min/1.73m 2FMercy HealthGlucose [Mass/Vol]112 mg/mUZayg87-651LjbfqcymvK[facility]tering Health [facility] Township Potassium [Moles/Vol]4.4 mmol/L3.5-5.1FTriHealth Bethesda North Hospitalodium [Moles/Vol]145 mmol/L630-331ZnworowbcKettering Health Washington TownshipTSH Qn3.657 m[IU]/L 0.358-3.740[facility] TownshipUrea nitrogen [Mass/Vol]33.0 mg/dL High7.0-18.0[facility] TownshipUrea nitrogen/Creatinine [Mass ratio]20.6 mg/mgGeorgetown Behavioral Hospitalerum or plasma anion gap determinationon 25-30-4733Dubxq gap [Moles/Vol]Serum or plasma anion gap determinationKettering Health Washington TownshipAnion gap [Moles/Vol]13.7 mmol/L [facility] TownshipTRANSTHORACIC ECHO (TTE) COMPLETEon 03-17-2025 TRANSTHORACIC ECHO (TTE) [address], [address] [place] [address] TRANSTHORACIC ECHOCARDIOGRAM REPORT Patient Name: LASHAUN JEMAL Doherty Physician: [id number] Bryce Guy MD, [facility] Study Date: 03/17/2025 Ordering Provider: [id number] HOLDEN ROSADO MRN/PID: [id number] Fellow: Nurse: Date of /Age: 11 1940 Tricot Knitter: Nicolasa taylor RDCS, RVT Gender Assigned at F Additional Staff: : Height: 165.10 cm Admit Date: Weight: 90.72 kg Admission Status: BSA / BMI: 1.98 m2 / 33.28 Department Location: [facility] kg/m2 Heart Rossy Blood Pressure: 120 /64 mmHg Study Type: TRANSTHORACIC ECHO (TTE) COMPLETE Diagnosis/ICD: Essential (primary) hypertension-I10; Palpitations-R00.2 Indication: CAD, PTCA-2022, Edema, Hyperlipidemia, Former Smoker CPT Codes: Echo Complete w Full Doppler-10105 Study Detail: The following Echo studies were [...] VALVE: Normal Ranges: RV (more content not included)...[facility] Orthopedic CenterAcanthocytes [Presence] in Blood by Light microscopyOrdered By: Jorge L Cruz on 98-12-3517Zxgnbtclfisd LM Ql (Bld)Acanthocytes [Presence] in Blood by Light microscopyKettering Health Washington TownshipAlanine aminotransferase [Enzymatic activity/volume] in Serum or PlasmaOrdered By: Jorge L Cruz on 28-25-8025AMZ [Catalytic activity/Vol]Alanine aminotransferase [Enzymatic activity/volume] in Serum or Plasma7-52[facility] TownshipAlbumin [Mass/volume] in Serum or Plasma by Bromocresol green (BCG) dye binding metho Ordered By: Jorge L Cruz on 07-64-1293Hzputdz BCG dye [Mass/Vol]Albumin [Mass/volume] in Serum or Plasma by Bromocresol green (BCG) dye binding metho 3.5-5.7FMercy HealthAlkaline phosphatase [Enzymatic activity/volume] in Serum or PlasmaOrdered By: Jorge L Cruz on 02-12-2025 ALP [Catalytic activity/Vol]Alkaline phosphatase [Enzymatic activity/volume] in Serum or Lmmbpj34-994KlabhxtxhKettering Health Washington TownshipAnisocytosis LM Ql (Bld) Ordered By: Jorge L Cruz on 70-72-0425Wrkgrfplrkri Ql (Bld)Anisocytosis [Presence] in Blood by Light microscopyKettering Health Washington Township Aspartate aminotransferase [Enzymatic activity/volume] in Serum or PlasmaOrdered By: Jorge L Cruz on 64-52-7890SHR [Catalytic activity/Vol]Aspartate aminotransferase [Enzymatic activity/volume] in Serum or Iuzhpr35-19AlobuaomdKettering Health Washington TownshipB-Type Natriuretic Peptideon 22-16-2931Yqfkzcdckvc peptide B (Bld) [Mass/Vol]246.0 pg/mLHigh5-100The [facility] Comment on above:Result Comment: PERFORMED BY: [facility] [address] [place] [address] PATHOLOGIST ADVICE NURSE RAMEZ MONTES M.D.Performed By: #### SCAN CBC, CK, HS TROP, BNP, PT, PTT ####[facility] [address] Basophils Auto (Bld) [#/Vol]Ordered By: Jorge L Cruz on 16-87-8283Ombowqdzw (Bld) [#/Vol]Automated basophil count0.0-0.2FMercy Health Basophils/100 WBC Auto (Bld)Ordered By: Jorge L Cruz on 02-12-2025 Basophils/100 WBC (Bld)Automated basophil %.[facility] Bilirubin.total [Mass/volume] in Serum or PlasmaOrdered By: Jorge L Cruz on 97-90-6585Uppdcrvce [Mass/Vol]Bilirubin.total [Mass/volume] in Serum or Plasma 0.3-1.0[facility] TownshipCalcium [Mass/volume] in Serum or Plasma Ordered By: Jorge L Cruz on 84-97-7375Axxqqko [Mass/Vol]Calcium [Mass/volume] in Serum or Plasma8.6-10.3FMercy HealthCarbon dioxide, total [Moles/volume] in Serum or PlasmaOrdered By: Jorge L Cruz on 96-42-5197ZO0 [Moles/Vol]Carbon dioxide, total [Moles/volume] in Serum or Gofztl32.0-31.0[facility] TownshipChloride [Moles/volume] in Serum or PlasmaOrdered By: Jorge L Cruz on 21-40-8136Yogllzkg [Moles/Vol] Chloride [Moles/volume] in Serum or Nldwif18-701IdgnwfafzKettering Health Washington TownshipComprehensive Metabolic Panelon 61-10-9045Ggbuaku [Mass/Vol]3.8 g/dLNormal 3.5-5.7The [facility] Physician GroupComment on above:Performed By: #### TSH3, CMP, MG #### [facility] [address] [place] [address] USAAlbumin/Globulin [Mass ratio]1.6 {ratio}NormalThe [facility] Physician [facility] HospitalComment on above:Performed By: #### TSH3, CMP, MG #### [facility] [address] [place] [address] USAALP [Catalytic activity/Vol]43 U/CMgjaoy69-644Cir [facility] Physician GroupComment on above:Performed By: #### TSH3, CMP, MG #### [facility] [address] [place] [address] USAALT [Catalytic activity/Vol]14 U/LNormal7-52The [facility] Physician GroupComment on above:Performed By: #### TSH3, CMP, MG #### [facility] [address] [place] [id number] USAAnion gap [Moles/Vol]11.4 mmol/LNormal6.0-15.0The [facility] Physician GroupComment on above:Performed By: #### TSH3, CMP, MG #### [facility] [address] [place] [id number] USAAST [Catalytic activity/Vol]19 U/JTzgkkn06-10Pnr [facility] Physician GroupComment on above:Performed By: #### TSH3, CMP, MG #### [facility] [address] [place] [address] USABilirubin [Mass/Vol]0.4 mg/dLNormal0.3-1.0The [facility] Physician GroupComment on above:Performed By: #### TSH3, CMP, MG #### [facility] [address] [place] [address] USACalcium [Mass/Vol]9.1 mg/dLNormal8.6-10.3The [facility] Physician GroupComment on above:Performed By: #### TSH3, CMP, MG #### [facility] [address] [place] [address] USAChloride [Moles/Vol]107 mmol/MUathkx08-179Lhc [facility] Physician GroupComment on above:Performed By: #### TSH3, CMP, MG #### [facility] [address] [place] [address] USACO2 [Moles/Vol]27.7 mmol/DVaduck88.0-31.0The [facility] Physician GroupComment on above:Performed By: #### TSH3, CMP, MG #### [facility] [address] [place] [address] USACreatinine [Mass/Vol]1.28 mg/dLHigh0.60-1.20The [facility] Physician GroupComment on above:Performed By: #### TSH3, CMP, MG #### [facility] [address] [place] [address] USACreatinine Clr Calc Tpvemnwi59.75NoMission Hospital Physician GroupComment on above:Performed By: #### TSH3, CMP, MG #### [facility] [address] [place] [address] USAEstimated GFR41.827 mL/MinNoMission Hospital Physician GroupComment on above:Performed By: #### TSH3, CMP, MG #### [facility] [address] [place] [address] USAGlobulin (S) [Mass/Vol]2.4 g/dLNoMission Hospital Physician GroupComment on above:Performed By: #### TSH3, CMP, MG #### [facility] [address] [place] [address] USAGlucose [Mass/Vol]102 mg/yXKnsb70-133Yts [facility] Physician GroupComment on above:Result Comment: Random Glucose Reference Range is dependent on time and content of last meal. Glucose of more than 200 mg/dL in a nonstressed, ambulatory subject supports the diagnosis of Diabetes Mellitus. ADA recommended reference rangePerformed By: #### TSH3, CMP, MG #### [facility] [address] [place] [address] USAPotassium [Moles/Vol]4.1 mmol/LNormal3.5-5.1The [facility] Physician GroupComment on above:Performed By: #### TSH3, CMP, MG #### [facility] [address] [place] [address] USAProtein [Mass/Vol]6.2 g/dLLow6.4-8.9The [facility] Physician GroupComment on above:Performed By: #### TSH3, CMP, MG #### [facility] [address] [place] [address] USASodium [Moles/Vol]142 mmol/FUhdyyo324-055Qin [facility] Physician GroupComment on above:Performed By: #### TSH3, CMP, MG #### [facility] [address] [place] [address] USAUrea nitrogen [Mass/Vol]28 mg/dLHigh7-25The [facility] Physician GroupComment on above:Performed By: #### TSH3, CMP, MG #### [facility] [address] [place] [id number] USACreatine Kinaseon 05-19-8861PX [Catalytic activity/Vol]35 U/VXsuowd51-914Ykg [facility] Physician GroupComment on above:Performed By: #### SCAN CBC, CK, HS TROP, BNP, PT, PTT ####[facility] [address] [place] [id number] USACreatine kinase [Enzymatic activity/volume] in Serum or PlasmaOrdered By: Jorge L Cruz on 06-56-1498GI [Catalytic activity/Vol] Creatine kinase [Enzymatic activity/volume] in Serum or Uodert64-047MammsutjqKettering Health Washington TownshipCreatinine [Mass/volume] in Serum or PlasmaOrdered By: Jorge L Cruz on 08-24-0277Alrqubpqbj [Mass/Vol]Creatinine [Mass/volume] in Serum or PlasmaHigh0.60-1.20[facility] TownshipECG 12 lead ECGon 90-60-3948HIH 12 lead ECGADAMS COUNTY REGIONAL [place] [address] Electrocardiograph Report Signed Patient: Lashaun Joaquin MR#: [id number] : 1940 Acct:[id number] Age/Sex: 84 / F ADM Date: 02/12/25 Loc: ER Room: Type: [facility] ER Attending Dr: Ordering Provider: Jorge [...] rhythm Confirmed by Jorge L CRUZ DO ([id number]) on 02/12/2025 10:52:00 AM Referred By: Electronically Signed By: Jorge L CRUZ DO Transcribed By: MUS Signed By Jorge L Cruz DO 0 02/12/25 [facility] Physician GroupEosinophils Auto (Bld) [#/Vol] Ordered By: Jorge L Cruz on 83-32-8060Lgcvsyjndlj (Bld) [#/Vol]Automated eosinophil count0.0-0.45[facility] TownshipEosinophils/100 WBC Auto (Bld)Ordered By: Jorge L Cruz on 42-37-9361Ykptxuekowf/100 WBC (Bld) Automated eosinophil %.[facility] TownshipErythrocyte distribution width Auto (RBC) [Ratio]Ordered By: Jorg eL Cruz on 74-37-0099Sqamghftfdn distribution width (RBC) [Ratio]Erythrocyte distribution width [Ratio] by Automated count11.9-15.3FMercy HealthErythrocyte morphology finding [Identifier] in BloodOrdered By: Jorge L Cruz on 04-49-2147XWF morphology finding Nom (Bld)RBC morphologyKettering Health Washington Township Globulin Calc (S) [Mass/Vol]Ordered By: Jorge L Cruz on 01-12-1872Cbgexesp (S) [Mass/Vol]Serum globulin measurement by calculation (mass/volume)[facility] TownshipGlucose [Mass/volume] in Serum or PlasmaOrdered By: Jorge L Cruz on 40-04-3181Buzamkz [Mass/Vol]Glucose [Mass/volume] in Serum or KvoqtwFhhe57-899PgtrpdofoKettering Health Washington TownshipComment on above:ADA recommended reference rangeRandom Glucose Reference Range is dependent on time and content of last meal. Glucose of more than 200 mg/dL in a nonstressed, ambulatory subject supports the diagnosisof Diabetes Mellitus.Hematocrit Auto (Bld) [Volume fraction]Ordered By: Jorge L Cruz on 62-13-6673Watdnprzau (Bld) [Volume fraction]Hematocrit [Volume Fraction] of Blood by Automated count Low34.0-46.4FMercy HealthHemoglobin [Mass/volume] in Blood Ordered By: Jorge L Cruz 09-46-6482Jvvsxrhjgk (Bld) [Mass/Vol]Hemoglobin [Mass/volume] in YjbmcRke25.8-15.4FMercy HealthINR in Platelet poor plasma by Coagulation assayOrdered By: Jorge L Cruz on 20-31-0150ALC Coag (PPP) [Relative time]INR in Platelet poor plasma by Coagulation assayKettering Health Washington TownshipComment on above:INR Therapeutic Range A) Pre- and [...] Automated counOrdered By: Jorge L Cruz on 82-96-0360OKR corrected for nucl RBC Auto (Bld) [#/Vol]Leukocytes [#/volume] corrected for nucleated erythrocytes in Blood by Automated coun3.8-11.6FMercy HealthLymphocytes Auto (Bld) [#/Vol]Ordered By: Jorge L Cruz on 25-78-6631Zxbdqindghg (Bld) [#/Vol]Lymphocytes [#/volume] in Blood by Automated countLow1.00-4.8[facility] TownshipLymphocytes/100 WBC Auto (Bld)Ordered By: Jorge L Cruz on 24-18-2828Xfwhjzjdoxb/100 WBC (Bld)Lymphocytes/100 leukocytes in Blood by Automated count.[facility] HospitalH Auto (RBC) [Entitic mass]Ordered By: Jorge L Cruz on 72-58-9943PCD (RBC) [Entitic mass]MCH [Entitic mass] by Automated count24.7-34.3FMercy HealthMCHC Auto (RBC) [Mass/Vol]Ordered By: Jorge L Cruz on 68-31-5402BXGT (RBC) [Mass/Vol]MCHC [Mass/volume] by Automated count32.0-35.0[facility] HospitalV Auto (RBC) [Entitic vol]Ordered By: Jorge L Cruz on 27-30-7666ZXW (RBC) [Entitic vol]MCV [Entitic volume] by Automated -996 [facility] TownshipMagnesiumon 04-83-2998Zrvhpnosa [Mass/Vol]2.3 mg/dLNormal1.9-2.7The [facility] Physician GroupComment on above:Performed By: #### TSH3, CMP, MG #### [place] [address] USAMagnesium [Mass/volume] in Serum or PlasmaOrdered By: Jorge L Cruz on 99-51-7815Rgpdwxneq [Mass/Vol]Magnesium [Mass/volume] in Serum or Plasma1.9-2.7FMercy HealthMicrocytes LM Ql (Bld) Ordered By: Jorge L Cruz on 03-80-4803Qsbulkyosh Ql (Bld)Microcytes [Presence] in Blood by Light microscopyKettering Health Washington TownshipMonocyte distribution width [Entitic volume] in Blood by AutomatedOrdered By: Jorge L Cruz on 41-14-2975Xyujcrqs distribution width Auto (Bld) [Entitic vol] Monocyte distribution width [Entitic volume] in Blood by AutomatedHigh0.00-20.00 [facility] TownshipComment on above:For adults in ED, MDW > 20.0 may be associated with a higher risk of sepsis during the first 12 hrs of hospital admissionMonocytes Auto (Bld) [#/Vol]Ordered By: Jorge L Cruz on 79-31-2551Ssukomhxl (Bld) [#/Vol]Automated blood monocyte count0.0-0.8[facility] TownshipMonocytes/100 WBC Auto (Bld)Ordered By: Jorge L Cruz on 58-45-4394Auymbvjzu/100 WBC (Bld)Automated monocyte %.[facility] TownshipNatriuretic peptide B [Mass/Vol]Ordered By: Jorge L Cruz on 94-71-6968Phlfjtkfdui peptide B (Bld) [Mass/Vol]BNP ser/plasHigh5-100[facility] TownshipNeutrophils Auto (Bld) [#/Vol]Ordered By: Jorge L Cruz on 09-76-0376Mchxxzhredz (Bld) [#/Vol]Neutrophils [#/volume] in Blood by Automated count1.8-7.7FMercy HealthNeutrophils/100 WBC Auto (Bld)Ordered By: Jorge L Cruz on 95-21-4615Vbhdqzorxig/100 WBC (Bld) Automated neutrophil %.[facility] TownshipNo Panel Information Ordered By: Jorge L Cruz on 76-12-2109Qggmvappm GFR (CKD-EPI)41.827 mL/Min [facility] TownshipPharmacy Creatinine Clearance (Chem37.75 [facility] TownshipNucleated erythrocytes [Presence] in Blood by Automated countOrdered By: Jorge L Cruz on 16-01-8544Gucvzwdzi RBC Auto Ql (Bld)Nucleated erythrocytes [Presence] in Blood by Automated count0-0.5FMercy HealthOvalocytes [Presence] in Blood by Light microscopy Ordered By: Jorge L Cruz on 18-31-9171Lclhcutpgx LM Ql (Bld)Ovalocyte detectionKettering Health Washington TownshipPartial Thromboplastin Timeon 18-53-1689aYYQ Coag (Bld) [Time]29.8 vKvqzyi98.1-36.5The [facility] Physician GroupComment on above:Result Comment: A hematocrit value greater than 55% may lead to inaccurate results in coagulation testing. Patients having hematocrit values >55% require a special collection tube for coagulation studies. Please contact the laboratory at [phone] for redraw instructions. PERFORMED BY: [facility] [address] [place] [address] PATHOLOGIST ADVICE NURSE RAMEZ MONTES M.D.Performed By: #### SCAN CBC, CK, HS TROP, BNP, PT, PTT ####[facility] [address] [place] [address] [facility] Platelet adequacy [Presence] in Blood by Light microscopyOrdered By: Jorge L Cruz on 84-76-1397Uangtcvdj LM Ql (Bld)Platelet adequacy [Presence] in Blood by Light microscopyNormalKettering Health Washington TownshipPlatelet mean volume Auto (Bld) [Entitic vol]Ordered By: Jorge L Cruz on 36-61-6083Pqmhtqax mean volume (Bld) [Entitic vol]Platelet mean volume [Entitic volume] in Blood by Automated count6.3-10.7FMercy HealthPlatelet morphology finding [Identifier] in BloodOrdered By: Jorge L Cruz on 72-00-2259Urfvokxh morphology finding Nom (Bld)Platelet morphology finding [Identifier] in Blood NormalKettering Health Washington TownshipPlatelets Auto (Bld) [#/Vol]Ordered By: Jorge L Cruz on 43-34-6068Uaovtcbgt (Bld) [#/Vol]Platelets [#/volume] in Blood by Automated bmeff204-951GkyxlagzhKettering Health Washington TownshipPoikilocytosis [Presence] in Blood by Light microscopyOrdered By: Jorge L Cruz on 54-10-4866Hnvksrzgczmuax LM Ql (Bld)Poikilocytosis [Presence] in Blood by Light microscopyKettering Health Washington TownshipPotassium [Moles/volume] in Serum or PlasmaOrdered By: Jorge L Cruz on 38-02-0585Gudsymbla [Moles/Vol]Potassium [Moles/volume] in Serum or Plasma3.5-5.1FMercy HealthProtein [Mass/volume] in Serum or PlasmaOrdered By: Jorge L Cruz on 02-12-2025 Protein [Mass/Vol]Protein [Mass/volume] in Serum or PlasmaLow6.4-8.9[facility] TownshipProthrombin Time INRon 44-18-4348AUG Coag (PPP) [Relative time]1.0 {INR}NormalThe [facility] County Medical CenterComment on above:Result Comment: INR Therapeutic Range A) [...] CBC, CK, HS TROP, BNP, PT, PTT ####[facility] [place] [address] USAPT Coag (PPP) [Time]11.3 sNormal9.0-12.9The [facility] County Medical CenterComment on above:Result Comment: A hematocrit value greater than 55% may lead to inaccurate results in coagulation testing. Patients having hematocrit values >55% require a special collection tube for coagulation studies. Please contact the laboratory at [phone] for redraw instructions.Performed By: #### SCAN CBC, CK, HS TROP, BNP, PT, PTT ####[place] [address] [place] [id number] [facility] Prothrombin time (PT)Ordered By: Jorge L Cruz on 34-90-8208IN Coag (PPP) [Time]Prothrombin time (PT)9.0-12.9[facility] TownshipComment on above:A hematocrit value greater than 55% may lead to inaccurate results in coagulation testing. Patientshaving hematocrit values >55% require a special collection tube for coagulation studies. Please contact the laboratory at [phone] for redraw instructions.RBC Auto (Bld) [#/Vol]Ordered By: Jorge L Cruz on 58-31-3368XJR (Bld) [#/Vol]Erythrocytes [#/volume] in Blood by Automated countLow3.60-5.00[facility]al Hospitalcan and CBCon 11-25-3975XmrhpdejvveiUklnqgLsurbzRhaBanner Ironwood Medical CenterComment on above: Performed By: #### SCAN CBC, CK, HS TROP, BNP, PT, PTT ####[facility] [address] StreetAnisocytosis Ql (Bld)Moderate NormalThe [facility] Physician GroupComment on above:Performed By: #### SCAN CBC, CK, HS TROP, BNP, PT, PTT ####[place] [address] USABasophils (Bld) [#/Vol]0.0 10*3/uLNormal0.0-0.2The [facility] Physician GroupComment on above:Performed By: #### SCAN CBC, CK, HS TROP, BNP, PT, PTT ####[place] [address] USABasophils/100 WBC (Bld)0.6 %Normal.The [facility] Comment on above:Performed By: #### SCAN CBC, CK, HS TROP, BNP, PT, PTT ####[address] Eosinophils (Bld) [#/Vol]0.1 10*3/uLNormal0.0-0.45The [facility] Comment on above:Performed By: #### SCAN CBC, CK, HS TROP, BNP, PT, PTT ####[address] Eosinophils/100 WBC (Bld)1.5 %Normal.The [facility] Physician GroupComment on above:Performed By: #### SCAN CBC, CK, HS TROP, BNP, PT, PTT ####[address]Erythrocyte distribution width (RBC) [Ratio]13.8 %Ghrsmr62.9-15.3The [facility] Physician GroupComment on above:Performed By: #### SCAN CBC, CK, HS TROP, BNP, PT, PTT ####[address] Hematocrit (Bld) [Volume fraction]29.7 %Low34.0-46.4The [facility] Physician GroupComment on above:Performed By: #### SCAN CBC, CK, HS TROP, BNP, PT, PTT ####[address] Hemoglobin (Bld) [Mass/Vol]10.2 g/dLLow11.8-15.4The [facility] Comment on above:Performed By: #### SCAN CBC, CK, HS TROP, BNP, PT, PTT ####[address] Lymphocytes (Bld) [#/Vol]0.9 10*3/uLLow1.00-4.8The [facility] Comment on above:Performed By: #### SCAN CBC, CK, HS TROP, BNP, PT, PTT ####[address] Lymphocytes/100 WBC (Bld)13.6 %Normal.The [facility] Physician GroupComment on above:Performed By: #### SCAN CBC, CK, HS TROP, BNP, PT, PTT ####[address] (RBC) [Entitic mass]28.9 roCotyzd38.7-34.3The [facility] Physician GroupComment on above: Performed By: #### SCAN CBC, CK, HS TROP, BNP, PT, PTT ####[address] (RBC) [Entitic vol]83.9 fL Fcpyjf86-914Cwl [facility] Physician GroupComment on above:Performed By: #### SCAN CBC, CK, HS TROP, BNP, PT, PTT ####[place] [address] USAMean Corpuscular HGB Conc34.5 g/lUDbuihu30.0-35.0The [facility] Physician GroupComment on above:Performed By: #### SCAN CBC, CK, HS TROP, BNP, PT, PTT ####[place] [address] USAMicrocytosisModerateNormalThe [facility] Physician GroupComment on above:Performed By: #### SCAN CBC, CK, HS TROP, BNP, PT, PTT ####[place] [address] USAMonocytes (Bld) [#/Vol]0.4 10*3/uLNormal0.0-0.8The [facility] Physician GroupComment on above: Performed By: #### SCAN CBC, CK, HS TROP, BNP, PT, PTT ####[place] [id number] USAMonocytes/100 WBC (Bld)21.49 % High0.00-20.00The [facility] Physician GroupComment on above:Result Comment: For adults in ED, MDW > 20.0 may be associated with a higher risk of sepsis during the first 12 hrs of hospital admissionPerformed By: #### SCAN CBC, CK, HS TROP, BNP, PT, PTT ####[place] [address] USAMonocytes/100 WBC (Bld)6.6 %Normal.The [facility] Physician GroupComment on above:Performed By: #### SCAN CBC, CK, HS TROP, BNP, PT, PTT ####[place] [address] [place] Neutrophils (Bld) [#/Vol]4.9 10*3/uLNormal1.8-7.7The [facility] Comment on above:Performed By: #### SCAN CBC, CK, HS TROP, BNP, PT, PTT ####[place] [address] [place] Neutrophils/100 WBC (Bld)77.7 %Normal.The [facility] Physician GroupComment on above:Performed By: #### SCAN CBC, CK, HS TROP, BNP, PT, PTT ####[place] [address] USANRBC%0.1 /100{WBC} Normal0-0.5The [facility] Physician GroupComment on above:Performed By: #### SCAN CBC, CK, HS TROP, BNP, PT, PTT ####[place] [address] [place] [address] USAOvalocytesSlightNoMission Hospital Physician [facility] Comment on above:Performed By: #### SCAN CBC, CK, HS TROP, BNP, PT, PTT ####[place] [place] [address] USAPlatelet EstimateNormalNormalNormAdventHealth Wesley Chapel Physician [facility] HospitalComment on above: Performed By: #### SCAN CBC, CK, HS TROP, BNP, PT, PTT ####[address] [address] [place] [address] USAPlatelet mean volume (Bld) [Entitic vol]7.7 fLNormal6.3-10.7The [facility] Physician [facility] HospitalComment on above: Performed By: #### SCAN CBC, CK, HS TROP, BNP, PT, PTT ####[place] [address] [place] [address] USAPlatelet MorphologyNormalNormal NormalThe [facility] Physician GroupComment on above:Result Comment: PERFORMED BY: [facility] [address] [facility] [address] PATHOLOGIST ADVICE NURSE RAMEZ MONTES M.D.Performed By: #### SCAN CBC, CK, HS TROP, BNP, PT, PTT ####[address] [address] [place] Platelets (Bld) [#/Vol]383 10*3/yDEzkicv151-133Dpw [facility] Physician [facility] Comment on above:Performed By: #### SCAN CBC, CK, HS TROP, BNP, PT, PTT ####[address] [address] [place] [address] [place] PoikilocytosisModerateNormAdventHealth Wesley Chapel Physician [facility] HospitalComment on above: Performed By: #### SCAN CBC, CK, HS TROP, BNP, PT, PTT ####[address] [address] USARBC (Bld) [#/Vol]3.54 10*6/uL Low3.60-5.00The [facility] Physician GroupComment on above:Performed By: #### SCAN CBC, CK, HS TROP, BNP, PT, PTT ####[facility] [place] [address] USAWBC (Bld) [#/Vol]6.3 10*3/uLNormal3.8-11.6The [facility] Physician GroupComment on above:Performed By: #### SCAN CBC, CK, HS TROP, BNP, PT, PTT ####[facility] [place] [address] USAWBC (Bld) [#/Vol]7.6 10*3/uLNormal3.8-11.6The [facility] Physician GroupComment on above:Performed By: #### SCAN CBC, CK, HS TROP, BNP, PT, PTT ####[address] [place] [address] USASerum or plasma albumin/globulin mass ratioOrdered By: Jorge L Cruz on 02-12-2025 Albumin/Globulin [Mass ratio]Serum or plasma albumin/globulin mass ratio [facility] Hospitalerum or plasma anion gap determinationOrdered By: Jorge L Cruz on 05-38-5083Arfmz gap [Moles/Vol]Serum or plasma anion gap determination6.0-15.0[facility] Hospitalodium [Moles/volume] in Serum or PlasmaOrdered By: Jorge L Cruz on 45-95-2839Pqbecq [Moles/Vol] Sodium [Moles/volume] in Serum or Unyyqu591-351NlriyoxxqKettering Health Washington Township Thyroid Stimulating Hormoneon 31-20-6860DTK Qn6.48 m[IU]/LHigh0.45-5.33The [facility] Physician GroupComment on above:Result Comment: PERFORMED BY: [facility] [address] [place] [address] PATHOLOGIST ADVICE NURSE RAMEZ MONTES M.D.Performed By: #### TSH3, CMP, MG #### [facility] [address] [place] [address] USAThyrotropin [Units/volume] in Serum or PlasmaOrdered By: Jorge L Cruz on 44-58-2259KLD QnThyrotropin [Units/volume] in Serum or PlasmaHigh0.45-5.33[facility] TownshipTroponin I High Sensitivity on 48-78-5658Gcjaphbr I High Jqocgyhrtjr24Yqspgj8-33Ecz [facility] Physician GroupComment on above:Result Comment: The Troponin units of report have been changed to meet the Chest Pain Accreditation requirement, element EC5.M1l2. Troponin units are changed from pg/ml to ng/L. Also, the decimal is removed and results are in whole numbers. PERFORMED BY: [facility] [address] [place] [address] PATHOLOGIST ADVICE NURSE RAMEZ MONTES M.D.Performed By: #### HS TROP ####[address] [place] [address] USATroponin I High Peviqtxjdef52 Normal0-15The [facility] Physician [facility] HospitalComment on above:Result Comment: The Troponin units of report have been changed to meet the Chest Pain Accreditation requirement, element EC5.M1l2. Troponin units are changed from pg/ml to ng/L. Also, the decimal is removed and results are in whole numbers. PERFORMED BY: [facility] [address] [place] [id number] PATHOLOGIST ADVICE NURSE RAMEZ MONTES M.D.Performed By: #### SCAN CBC, CK, HS TROP, BNP, PT, PTT ####[place] [id number] [facility] Troponin I.cardiac [Mass/volume] in Serum or Plasma by Detection limit <= 0.01 ng/Ordered By: Jorge L Cruz on 35-60-9148Nqmeasmb I.cardiac DL <= 0.01 ng/mL [Mass/Vol]Troponin I.cardiac [Mass/volume] in Serum or Plasma by Detection limit <= 0.01 ng/0-15[facility] Washington TownshipComment on above:The Troponin units of report have been changed to meet the Chest Pain Accreditation requirement, element EC5.M1l2. Troponin units are changed from pg/ml to ng/L. Also, the decimal is removed and results are in whole numbers.Urea nitrogen [Mass/volume] in Serum or PlasmaOrdered By: Jorge L Cruz on 28-88-0920Dyss nitrogen [Mass/Vol]Urea nitrogen [Mass/volume] in Serum or Plasma [facility] TownshipWBC Auto (Bld) [#/Vol]Ordered By: Jorge L Cruz on 66-44-7844XYP (Bld) [#/Vol]Leukocytes [#/volume] in Blood by Automated count3.8-11.6FMercy HealthXR chest 2V*on 06-82-0080BT chest 2V*[facility] [place] [address] XRay Report Signed Patient: Lashaun Joaquin MR#: [id number] : 1940 Acct:[id number] Age/Sex: 84 / F ADM Date: 02/12/25 Loc: ER Room: Type: [facility] ER Attending Dr: Copies to: [...] Lyon Jr., D.OManuel02/12/2025 8:16 AM Dictation Location: [place] [address] Transcribed By: [facility] 02/12/25815 Dictated By: Epifanio Lyon Jr, DO 02/12/25 0816 Signed By: 02/12/25 0816NoMission Hospital Physician GroupaPTT in Platelet poor plasma by Coagulation assayOrdered By: Jorge L Cruz on 52-00-8991hMZI Coag (PPP) [Time]Activated partial thromboplastin time (aPTT) in platelet poor plasma by coagulation a25.1-36.5FMercy HealthComment on above:A hematocrit value greater than 55% may lead to inaccurate results in coagulation testing. Patientshaving hematocrit values >55% require a special collection tube for coagulation studies. Please contact the laboratory at [phone] for redraw instructions.[place] Thyroid glandon 24-47-9117[place] [address] Ultrasound Report Signed Patient: LASHAUN JOAQUIN MR#: [id number] : 1940 Acct:[id number] Age/Sex: 84 / F ADM Date: 02/10/25 Loc: US Attending Dr: Reyna Esparza M.D. Ordering Physician: Reyna Esparza M.D. Date of Service: 02/10/25 Procedure(s): US thyroid Accession Number(s): [id number] cc: Nathan Hathaway D.O.; Reyna Esparza M.D. [address] [address] Patient Name: LASHAUN JOAQUIN MRN: [id number] date: 1940 Sex: F Assigned Patient Location: US Current Patient Location: US Accession/Order Number: [id number] Exam Date: 02/10/2025 11:24 Report Date: 02/10/2025 [...] Shelli Israel M.D.02/10/2025 11:33 AM Dictation Location: [place] [address] Electronically authenticated by: [id number] Y Date: 02/10/2025 11:33 Dictated By: Shelli Israel M.D. Signed By: 02/10/25 1136 DD/ 1133 TD/TT: Cupola Man:TBHRadiology, Radiologist, - 02/10/2025 [place] [address] Ultrasound Report Signed Patient: LASHAUN JOAQUIN MR#: [id number] : 1940 Acct:[id number] Age/Sex: 84 / F ADM Date: 02/10/25 Loc: US Attending Dr: Reyna Esparza M.D. Ordering Physician: Reyna Esparza M.D. Date of Service: 02/10/25 Procedure(s): US thyroid Accession Number(s): [id number] cc: Nathan Hathaway D.O.; Reyna Esparza M.D. The [place] [id number] Patient Name: LASHAUN JOAQUIN MRN: [id number] date: 1940 Sex: F Assigned Patient Location: US Current Patient Location: US Accession/Order Number: [id number] Exam Date: 02/10/2025 11:24 Report Date: 02/10/2025 [...] Shelli Israel M.D.02/10/2025 11:33 AM Dictation Location: [place] [address] Electronically authenticated by: [id number] Y Date: 02/10/2025 11:33 Dictated By: Shelli Israel M.D. Signed By: 02/10/25 1136 DD/ 1133 TD/TT: [place] Man: PEREZ HealthcareRadiology Study observation (narrative)PEREZ PatelUS Thyroid glandOrdered By: Radiologist Radiology on 95-71-4713[employer] Work Phone: Estimated glomerular filtration rate (GFR) non- Americanon 37-71-2982BHX/1.73 sq M.predicted among non-blacks MDRD (S/P/Bld) [Vol rate/Area]Estimated glomerular filtration rate (GFR) non- Low>=60 mL/min/1.73m 2FMercy HealthLaboratory - Chemistry and Chemistry - challengeon 18-56-0829Dcvivjm [Mass/Vol]8.9 mg/dL8.5-10.1 [facility] TownshipChloride [Moles/Vol]106 mmol/T17-406WmlhpqplfKettering Health Washington TownshipCO2 [Moles/Vol]28.0 mmol/L21.0-32.0[facility] TownshipCreatinine [Mass/Vol]1.42 mg/dLHigh0.55-1.02[facility] TownshipGFR/1.73 sq M.predicted MDRD (S/P/Bld) [Vol rate/Area]43 mL/min/{1.73_m2}Low>=60 mL/min/1.73m 2FMercy HealthGlucose [Mass/Vol]116 mg/vITlro70-833DrgzjbbpeKettering Health Washington TownshipPotassium [Moles/Vol]3.9 mmol/L3.5-5.1FTriHealth Bethesda North Hospitalodium [Moles/Vol] 145 mmol/B937-183YqlxpvtqqKettering Health Washington TownshipUrea nitrogen [Mass/Vol]21.0 mg/dLHigh7.0-18.0[facility] TownshipUrea nitrogen/Creatinine [Mass ratio]14.8 mg/mgGeorgetown Behavioral Hospitalerum or plasma anion gap determinationon 12-70-0202Ysqqh gap [Moles/Vol]Serum or plasma anion gap determinationKettering Health Washington TownshipLaboratory - Chemistry and Chemistry - challengeon 57-18-9719Zliygyiip Ql (U)NegativeKettering Health Washington TownshipGlucose (U) [Mass/Vol]NegativeKettering Health Washington Township Ketones Ql (U)Corey HospitalpH (U)5 [pH][facility] Behavioral Hospitalpecific gravity (U) [Rel density]1.000K[facility] TownshipUrobilinogen (U) [Mass/Vol]NegativeKettering Health Washington TownshipLaboratory - Specimen informationon 60-32-5840Ckxdbtteus (U)clearKettering Health Washington TownshipColor (U)yellowKettering Health Washington Township Laboratory - Urinalysison 25-04-9578Jkcsoepzs esterase Test strip Ql (U)Negative [facility] TownshipNitrite Ql (U)NegativeKettering Health Washington TownshipProtein Ql (U)0.2FMercy HealthNo Panel Informationon 87-48-8731Jqabm Occult Blood++[facility] Estimated glomerular filtration rate (GFR) non- Americanon 12-18-2024 GFR/1.73 sq M.predicted among non-blacks MDRD (S/P/Bld) [Vol rate/Area]Estimated glomerular filtration rate (GFR) non- AmericanLow>=60 mL/min/1.73m 2 [facility] TownshipLaboratory - Chemistry and Chemistry - challengeon 88-77-6584Uyxjmxc [Mass/Vol]8.9 mg/dL8.5-10.1FMercy HealthChloride [Moles/Vol]105 mmol/B34-063OdhswjzupKettering Health Washington TownshipCO2 [Moles/Vol]30.4 mmol/L21.0-32.0[facility] Creatinine [Mass/Vol]1.57 mg/dLHigh0.55-1.02[facility] Free T4 [Mass/Vol]0.90 ng/dL0.76-1.46[facility] TownshipGFR/1.73 sq M.predicted MDRD (S/P/Bld) [Vol rate/Area]38 mL/min/{1.73_m2}Low>=60 mL/min/1.73m 2FMercy HealthGlucose [Mass/Vol]119 mg/dLHigh 74-106[facility] TownshipPotassium [Moles/Vol]4.1 mmol/L3.5-5.1 [facility] Hospitalodium [Moles/Vol]143 mmol/C613-363BdxmizudtKettering Health Washington TownshipTSH Qn2.650 m[IU]/L0.358-3.740K[facility] Washington TownshipUrea nitrogen [Mass/Vol]28.0 mg/dLHigh7.0-18.0[facility] TownshipUrea nitrogen/Creatinine [Mass ratio]17.8 mg/mgGeorgetown Behavioral Hospitalerum or plasma anion gap determinationon 06-27-9988Melri gap [Moles/Vol] Serum or plasma anion gap determinationKettering Health Washington TownshipINR in Platelet poor plasma by Coagulation assayOrdered By: Nathan Hathaway on 11-17-2024 INR Coag (PPP) [Relative time]INR in Platelet poor plasma by Coagulation assay [facility] TownshipComment on above:INR Therapeutic Range A) Pre- and [...] [id number] Received: 11/17/24 Status: SERENITY Rojas Num: [id number] Spec Type: Cytology Subm Dr: Seth Ley DO Tissues: A FNA SLIDES PATH (FNA THYROID) Procedures: -, DIFF QWIK/3, PAPSTN/4 Age/ Patient Sex Location Account Attending Physician Lashaun Joaquin 84/F [id number] Nathan Hathaway DO SPEC NUM: [id number] RECD: 11/17/24 STATUS: SERENITY ROJAS NUM: [id number] JED: 11/17/24- DR: Seth Ley DO ENTERED: 11/17/[address] [facility] [address]: Nathan Hathaway DO SPEC TYPE: Cytology DEPT: CNG ENTERED BY: [id number] RECV BY: [id number] ORDERED: -, DIFF QWIK/3, PAPSTN/4 ORDERED: -, DIFF QWIK/3, PAPSTN/4 Pathological Diagnosis Thyroid nodule, US-guided FNA: Satisfactory for evaluation. Benign ([place] category I). Clinical Information Thyroid Nodule,adrenal nodule, hypothyroidism Gross Description Received fixed in Cytolyt is 32 ml red hazy fixed fluid for cytology said to have been obtained as Thyroid. ThinPrep preparations are prepared for microscopic examination. Also received are 6 total smeared slides and a Veracyte vial stored at -20 for microscopic examination. (CC/ut) Immediate Evaluation Thyroid, FNA, immediate evaluation: Mostly macrophages and colloid; additional pass requested. 11/17/2024, 12:20 PM Specimen: [id number] Received: 11/17/24 Status: SERENITY Venegasblack Num: [id number] Spec Type: Cytology Subm Dr: Seth Ley DO Tissues: A FNA SLIDES PATH (FNA THYROID) Procedures: -, DIFF QWIK/3, PAPSTN/4 Patient: Lashaun Joaquin [id number] (Continued) Specimen: [id number] Received: 11/17/24 (Continued) Signed (signature on file) Lala Mast MD 11/18/24 0857 Specimen: [id number] Received: 11/17/24 Status: SERENITY Rojas Num: [id number] Spec Type: Cytology Subm Dr: Seth Ley DO Tissues: A FNA SLIDES PATH (FNA THYROID) Procedures: -, DIFF QWIK/3, PAPSTN/4 Patient: Karla Joaquinelyn [id number] (Continued) Specimen: [id number] Received: 11/17/24 (Continued) CPT Codes 58618, 27087 Specimen: [id number] Received: 11/17/24 Status: RHONDAAlbino Betsy Num: [id number] Spec Type: Cytology Subm Dr: Seth Ley DO Tissues: A FNA SLIDES PATH (FNA THYROID) Procedures: -, DIFF QAMELIAK/JOHN Hayden/4 Patient: Lashaun Joaquin [id number] (Continued) Signed (signature on file) Lala Mast MD 11/18/24 0857 NormalHca [facility] Physician [facility] HospitalPartial Thromboplastin Timeon 65-52-9116qIOL Coag (Bld) [Time]28.9 xSkxfbz07.1-36.5The [facility] Physician [facility] HospitalComment on above:Result Comment: A hematocrit value greater than 55% may lead to inaccurate results in coagulation testing. Patients having hematocrit values >55% require a special collection tube for coagulation studies. Please contact the laboratory at [phone] for redraw instructions. PERFORMED BY: [place] [address] PATHOLOGIST ADVICE NURSE RAMEZ MONTES M.D.Performed By: #### PTT, PT #### [place] [address] USAPlatelet Counton 30-98-2190Rlyoapkea (Bld) [#/Vol]253 10*3/nBAxvbyy459-915Gma [facility] Physician [facility] HospitalComment on above:Result Comment: PERFORMED BY: [place] [address] PATHOLOGIST ADVICE NURSE RAMEZ MONTES M.D.Performed By: #### PLT #### [place] [address] USAPlatelets Auto (Bld) [#/Vol]Ordered By: Nathan Hathaway on 08-83-5272Aprrkmjnr (Bld) [#/Vol]Platelets [#/volume] in Blood by Automated iqiax061-247GbdhmczzlKettering Health Washington TownshipProthrombin Time INRon 11-17-2024 INR Coag (PPP) [Relative time]1.0 {INR}NormalThe [facility] Physician [facility] Comment on above:Result Comment: INR Therapeutic [...] - 4.5Performed By: #### PTT, PT #### [facility] [address] [place] [address] USAPT Coag (PPP) [Time]11.9 sNormal9.0-12.9The [facility] Physician GroupComment on above:Result Comment: A hematocrit value greater than 55% may lead to inaccurate results in coagulation testing. Patients having hematocrit values >55% require a special collection tube for coagulation studies. Please contact the laboratory at [phone] for redraw instructions.Performed By: #### PTT, PT #### [facility] [address] [place] [address] USAProthrombin time (PT)Ordered By: Nathan Hathaway on 73-65-1629DJ Coag (PPP) [Time]Prothrombin time (PT)9.0-12.9[facility] TownshipComment on above:A hematocrit value greater than 55% may lead to inaccurate results in coagulation testing. Patientshaving hematocrit values >55% require a special collection tube for coagulation studies. Please contact the laboratory at [phone] for redraw instructions.US needle aspirationon 44-28-3428XQ needle aspirationADAMS COUNTY REGIONAL [facility]ENTER Main [place] [address] [place] [address] Ultrasound Report Signed Patient: Lashaun Joaquin MR#: [id number] : 1940 Acct:[id number] Age/Sex: 84 / F ADM Date: 11/17/24 Loc: Room: Type: [facility] Attending Dr: Nathan Hathaway [...] Seth Ley M.D.11/17/2024 12:41 PM Dictation Location: [place] [address] Tech: Deja Lipscomb Transcribed By: LAURA 11/17/24 1241 Dictated By: Seth Ley DO 11/17/24 1159 Signed By: 11/17/24 1241[facility] Physician GroupaPTT in Platelet poor plasma by Coagulation assayOrdered By: Nathan Hathaway on 15-27-5269vIAI Coag (PPP) [Time] Activated partial thromboplastin time (aPTT) in platelet poor plasma by coagulation a25.1-36.5FMercy HealthComment on above:A hematocrit value greater than 55% may lead to inaccurate results in coagulation testing. Patientshaving hematocrit values >55% require a special collection tube for coagulation studies. Please contact the laboratory at [phone] for redraw instructions.Estimated glomerular filtration rate (GFR) non- Americanon 19-46-7023RVF/1.73 sq M.predicted among non-blacks MDRD (S/P/Bld) [Vol rate/Area]Estimated glomerular filtration rate (GFR) non- Low>=60 mL/min/1.73m 2FMercy HealthLaboratory - Chemistry and Chemistry - challengeon 61-59-5412Hcntjjj [Mass/Vol]8.6 mg/dL8.5-10.1 [facility] TownshipChloride [Moles/Vol]108 mmol/NQrjh51-567 [facility] TownshipCO2 [Moles/Vol]27.0 mmol/L21.0-32.0[facility] TownshipCreatinine [Mass/Vol]1.39 mg/dLHigh0.55-1.02[facility] TownshipFree T4 [Mass/Vol]0.80 ng/dL0.76-1.46[facility] TownshipGFR/1.73 sq M.predicted MDRD (S/P/Bld) [Vol rate/Area]44 mL/min/{1.73_m2}Low>=60 mL/min/1.73m 2FMercy HealthGlucose [Mass/Vol]85 mg/vI66-139OrmrxtbhiKettering Health Washington TownshipPotassium [Moles/Vol] 4.5 mmol/L3.5-5.1FTriHealth Bethesda North Hospitalodium [Moles/Vol]144 mmol/L 136-145K[facility] Washington TownshipTSH Qn3.767 m[IU]/LHigh0.358-3.740 [facility] TownshipUrea nitrogen [Mass/Vol]20.0 mg/dLHigh7.0-18.0 [facility] TownshipUrea nitrogen/Creatinine [Mass ratio]14.4 mg/mg [facility] Hospitalerum or plasma anion gap determinationon 39-97-1002Pajbj gap [Moles/Vol]Serum or plasma anion gap determinationKettering Health Washington TownshipEstimated glomerular filtration rate (GFR) non- Americanon 76-76-5089OCV/1.73 sq M.predicted among non-blacks MDRD (S/P/Bld) [Vol rate/Area]39 mL/min/{1.73_m2}Low>=60[facility] Laboratory - Chemistry and Chemistry - challengeon 27-86-1286Dfbpyhy [Mass/Vol] 8.8 mg/dL8.5-10.1FMercy HealthChloride [Moles/Vol]106 mmol/L 98-107K[facility] Washington TownshipCO2 [Moles/Vol]30.8 mmol/L21.0-32.0 [facility] TownshipCreatinine [Mass/Vol]1.30 mg/dLHigh0.55-1.02 [facility] TownshipGFR/1.73 sq M.predicted MDRD (S/P/Bld) [Vol rate/Area]48 mL/min/{1.73_m2}Low>=60[facility] TownshipGlucose [Mass/Vol]89 mg/tU89-273PnqdrphlrKettering Health Washington TownshipPotassium [Moles/Vol] 4.3 mmol/L3.5-5.1FTriHealth Bethesda North Hospitalodium [Moles/Vol]143 mmol/L 136-145K[facility] Washington TownshipUrea nitrogen [Mass/Vol]24.0 mg/dLHigh 7.0-18.0[facility] TownshipUrea nitrogen/Creatinine [Mass ratio] 18.5 mg/mgFirelands Regional Medical CenterSerum or plasma anion gap determinationon 46-67-4458Gzhjd gap [Moles/Vol]10.5 mmol/LFMercy HealthEstimated glomerular filtration rate (GFR) non- Americanon 36-97-0071MLJ/1.73 sq M.predicted among non-blacks MDRD (S/P/Bld) [Vol rate/Area]37 mL/min/{1.73_m2}Low>=60[facility] TownshipLaboratory - Chemistry and Chemistry - challengeon 12-69-3395Acwzukj [Mass/Vol]8.5 mg/dL 8.5-10.1FMercy HealthChloride [Moles/Vol]106 mmol/L98-107 [facility] TownshipCO2 [Moles/Vol]28.7 mmol/L21.0-32.0[facility] TownshipCreatinine [Mass/Vol]1.36 mg/dLHigh0.55-1.02[facility] TownshipGFR/1.73 sq M.predicted MDRD (S/P/Bld) [Vol rate/Area]45 mL/min/{1.73_m2}Low>=60[facility] TownshipGlucose [Mass/Vol]98 mg/rB48-394XokqgjgibKettering Health Washington TownshipPotassium [Moles/Vol]4.3 mmol/L 3.5-5.1FTriHealth Bethesda North Hospitalodium [Moles/Vol]142 mmol/X364-399 [facility] TownshipUrea nitrogen [Mass/Vol]26.0 mg/dLHigh7.0-18.0 [facility] TownshipUrea nitrogen/Creatinine [Mass ratio]19.1 mg/mg [facility] Behavioral Hospitalerum or plasma anion gap determinationon 30-41-0203Xipox gap [Moles/Vol]11.6 mmol/LFMercy HealthNM Heart Perfusion W stress and W radionuclide Rivka 18-63-9101Xffezg Lexiscan Myoview cardiac perfusion stress test. No evidence of ischemia or myocardial infarction by perfusion imaging. Normal left ventricular systolic function, ejection fraction 88%. When compared previous study changes are noted. Previous study showed anterior wall ischemia which was not present during the study. Signed by: Faustino Zuniga 03/12/2024 4:34 PM Dictation workstation: [id number] By: Faustino Zuniga and Giannuzzi Michael STUDY: MYOCARDIAL PERFUSION STRESS TEST WITH LEXISCAN Performing facility: [facility], [address], [address], [place] [address] [facility] Provider: Holden Rosado RN, [employer]ING OFFICER PCP: Dr. Ksenia Hathaway Supervising provider: Anthony Perry DO, [facility] INDICATION: ASHD HISTORY: Gender: F; Age: 83 y/o ; Height: HT 165.1 cm cm; Weight: WT 88.905 kg kg. CAD; High Cholesterol; HTN; Fatigue; Quit smoking 44 years ago. Cardiac catheterization on 2022. PTCA on 2022. COMPARISON: Previous nuclear testing completed [id number] at [facility]. ACCESSION NUMBER(S): [id number] ORDERING CLINICIAN: HOLDEN ROSADO TECHNIQUE: ONE DAY [...] PERFUSION STRESS TEST WITH LEXISCAN Performing facility: [facility], [address], [address], [place] [address] [facility] Provider: Holden Rosado RN, [employer]ING OFFICER PCP: Dr. Ksenia Hathaway Supervising provider: Anthony Perry DO, [facility] INDICATION: ASHD HISTORY: Gender: F; Age: 83 y/o ; Height: HT 165.1 cm cm; Weight: WT 88.905 kg kg. CAD; High Cholesterol; HTN; Fatigue; Quit smoking 44 years ago. Cardiac catheterization on 2022. PTCA on 2022. COMPARISON: Previous nuclear testing completed [id number] at [facility]. ACCESSION NUMBER(S): [id number] ORDERING CLINICIAN: HOLDEN ROSADO TECHNIQUE: ONE DAY [...] Faustino Zuniga 03/12/2024 4:34 PM Dictation workstation: [id number] [facility] Work Phone: Radiology Study observation (narrative)[facility] Work Phone: nm Heart Perfusion W stress and W radionuclide IV Ordered By: Faustino Zuniga on 28-01-0290VnnsnlrxijKettering Health [facility] Work Phone: Basic Metabolic Panelon 62-38-5278TAJ/1.73 sq M.predicted MDRD (S/P/Bld) [Vol rate/Area]39.134 mL/min/{1.73_m2}NormalThe [facility] Physician GroupComment on above:Performed By: #### BMP ####[place] [id number] USACalcium [Mass/volume] in Serum or PlasmaOrdered By: Holden Rosado on 47-28-4783Flycllg [Mass/Vol]9.2 mg/dLNormal8.6-10.3FMercy HealthComment on above:Result Comment: PERFORMED BY: [facility] [address] [place] [address] PATHOLOGIST ADVICE NURSE JAMAAL MO M.D.Performed By: #### BMP ####[address] [address] USACarbon dioxide, total [Moles/volume] in Serum or PlasmaOrdered By: Holden Rosado on 74-08-4113GW6 [Moles/Vol]32.1 mmol/LHigh 21.0-31.0[facility] [place] TownshipComment on above:Performed By: #### BMP ####[address] [address] [place] Chloride [Moles/volume] in Serum or PlasmaOrdered By: Holden Rosado on 03-05-2024 Chloride [Moles/Vol]104 mmol/ZMocszp04-270UoxhfjxzuKettering Health [place] Comment on above:Performed By: #### BMP ####[address] [place] [address] USACreatinine [Mass/volume] in Serum or Plasma Ordered By: Holden Rosado on 10-77-4993Bvvrnqboep [Mass/Vol]1.36 mg/dLHigh 0.60-1.20[facility] [place] TownshipComment on above:Performed By: #### BMP ####[address] [address] [place] Glucose [Mass/volume] in Serum or PlasmaOrdered By: Holden Rosado on 03-05-2024 Glucose [Mass/Vol]79 mg/lZUosqce33-502BfewzzhztKettering Health [place] TownshipComment on above:ADA recommended reference rangeRandom Glucose Reference [...] ADA recommended reference rangePerformed By: #### BMP ####[address] [address] [place]ANo Panel InformationOrdered By: Holden Rosado on 80-83-9637Hdnxhunne GFR (CKD-EPI)39.134 mL/MinKettering Health [place] TownshipPharmacy Creatinine Clearance (ChemN/[facility] HospitalPotassium [Moles/volume] in Serum or PlasmaOrdered By: Holden Rosado on 21-82-0330Youlgpoks [Moles/Vol]5.2 mmol/LHigh3.5-5.1FMercy HealthComment on above:Performed By: #### BMP ####[address] [address] USASerum or plasma anion gap determinationOrdered By: Holden Rosado on 52-00-8927Dttub gap [Moles/Vol]10.1 mmol/LNormal6.0-15.0[facility] [place] TownshipComment on above:Performed By: #### BMP ####[place] [address] [place] [address] USASodium [Moles/volume] in Serum or PlasmaOrdered By: Holden Rosado on 56-70-3950Cmlvfk [Moles/Vol]141 mmol/LLhspvl322-891OdgthjwfeKettering Health [place] TownshipComment on above:Performed By: #### BMP ####[facility] [address] [place] [address] USAUrea nitrogen [Mass/volume] in Serum or PlasmaOrdered By: oHlden Rosado on 17-53-8493Mast nitrogen [Mass/Vol]26 mg/dL High7-25[facility] [place] TownshipComment on above:Performed By: #### BMP ####[facility] [address] [place] [id number] [place] Basophils Auto (Bld) [#/Vol]on 58-50-9250Zfkiaidxu (Bld) [#/Vol]0.0 10 3/uL 0.0-0.1FMercy HealthBasophils/100 WBC Auto (Bld)on 31-82-4731Bfbdkzewr/100 WBC (Bld)0.8 %0.2-2.0[facility] [place] Eosinophils/100 WBC Auto (Bld)on 59-65-7798Ymmwzhbblnz/100 WBC (Bld)2.8 %0.9-7.0 [facility] [place] TownshipErythrocyte distribution width Auto (RBC) [Ratio]on 23-20-7832Ufquyxhlipw distribution width (RBC) [Ratio]13.1 %11.0-15.0 [facility] [place] TownshipEstimated glomerular filtration rate (GFR) non- Americanon 11-91-4596QQT/1.73 sq M.predicted among non-blacks MDRD (S/P/Bld) [Vol rate/Area]49 mL/min/{1.73_m2}>=60[facility] [place] TownshipGlobulin Calc (S) [Mass/Vol]on 59-34-9375Npewicio (S) [Mass/Vol]2.7 g/dL [facility] [place] TownshipHematocrit Auto (Bld) [Volume fraction]on 52-41-6538Nrfjslskto (Bld) [Volume fraction]29.2 %36.0-48.0[facility] [place] TownshipHemoglobin [Mass/volume] in Bloodon 03-58-6714Aiylkdmqwq (Bld) [Mass/Vol]9.5 g/dL12.0-16.0[facility] [place] TownshipLaboratory - Chemistry and Chemistry - challengeon 32-56-4992Opyhbsp [Mass/Vol]2.9 g/dL 3.4-5.0[facility] [place] TownshipALP [Catalytic activity/Vol]44 U/L46-116 [facility] [place] TownshipALT [Catalytic activity/Vol]13 U/L14-59 [facility] [place] TownshipAST [Catalytic activity/Vol]14 U/L15-37 [facility] [place] TownshipBilirubin [Mass/Vol]0.6 mg/dL0.2-1.0[facility] [place] TownshipCalcium [Mass/Vol]8.9 mg/dL8.5-10.1FMercy HealthChloride [Moles/Vol]107 mmol/N14-395RkkqzxvkaKettering Health [place] TownshipCO2 [Moles/Vol]27.9 mmol/L21.0-32.0[facility] [place] Creatinine [Mass/Vol]1.08 mg/dL0.55-1.02[facility] [place] GFR/1.73 sq M.predicted MDRD (S/P/Bld) [Vol rate/Area]59 mL/min/{1.73_m2}>=60 [facility] [place] TownshipGlucose [Mass/Vol]83 mg/jS89-735IjsgifcbiKettering Health [place] TownshipPotassium [Moles/Vol]3.8 mmol/L3.5-5.1FMercy HealthProtein [Mass/Vol]5.6 g/dL6.4-8.2FMercy Health Sodium [Moles/Vol]141 mmol/R640-275EaiserchuKettering Health [place] TownshipUrea nitrogen [Mass/Vol]18.0 mg/dL7.0-18.0[facility] [place] TownshipUrea nitrogen/Creatinine [Mass ratio]16.7 mg/mgKettering Health [place] Township Laboratory - Hematology and Cell countson 35-49-9037Jdplfqer granulocytes/100 WBC (Bld)0.2 %0.0-0.5FMercy HealthLeukocytes [#/volume] corrected for nucleated erythrocytes in Blood by Automated counon 34-86-0920FNA corrected for nucl RBC Auto (Bld) [#/Vol]4.7 10 3/uL4.0-11.0[facility] [place] TownshipLymphocytes Auto (Bld) [#/Vol]on 46-11-0497Kfqmhzqcoap (Bld) [#/Vol]1.0 10 3/uL1.2-3.8[facility] [place] TownshipLymphocytes/100 WBC Auto (Bld)on 17-11-3608Bhgxlvbosoz/100 WBC (Bld)21.8 %20.5-60.0[facility] HospitalH Auto (RBC) [Entitic mass]on 91-43-8511RQR (RBC) [Entitic mass]29.2 pg26.7-34.0[facility] HospitalHC Auto (RBC) [Mass/Vol]on 46-33-5532QOQQ (RBC) [Mass/Vol]32.5 g/dL29.9-35.2FMercy HealthMCV Auto (RBC) [Entitic vol]on 89-47-8427UOD (RBC) [Entitic vol] 89.8 fL81.0-99.0[facility] [place] TownshipMonocytes Auto (Bld) [#/Vol]on 41-97-3244Vnzciznqj (Bld) [#/Vol]0.7 10 3/uL0.3-0.8[facility] [place] TownshipMonocytes/100 WBC Auto (Bld)on 99-03-2161Qlemoplzc/100 WBC (Bld)14.2 % 1.7-12.0[facility] [place] TownshipNeutrophils Auto (Bld) [#/Vol]on 42-36-6787Eqctzyfzsep (Bld) [#/Vol]2.8 10 3/uL1.4-6.5FMercy HealthNeutrophils/100 WBC Auto (Bld)on 31-21-9575Dmzmtnyqxam/100 WBC (Bld)60.2 % 43.0-75.0[facility] [place] TownshipNo Panel Informationon 02-20-2024 Eosinophils # (Auto)0.1 10 3/uL0.0-0.7FMercy HealthImmature Granulocyte # (Auto)0.01 10 3/uL0.00-0.03[facility] [place] Platelet mean volume Auto (Bld) [Entitic vol]on 79-33-0205Trrzxfrc mean volume (Bld) [Entitic vol]10.5 fL9.5-13.5FMercy HealthPlatelets Auto (Bld) [#/Vol]on 20-95-3846Ahamavoht (Bld) [#/Vol]250 10 3/vG821-940 [facility] [place] TownshipRBC Auto (Bld) [#/Vol]on 37-14-8834JID (Bld) [#/Vol]3.25 10 6/uL4.20-5.40[facility] Hospitalerum or plasma albumin/globulin mass ratioon 18-41-1429Vkdjmps/Globulin [Mass ratio]1.1 {ratio} [facility] Hospitalerum or plasma anion gap determinationon 89-71-9129Zgyog gap [Moles/Vol]9.9 mmol/LFMercy Health Basophils Auto (Bld) [#/Vol]on 59-17-1102Nnjkqvrvc (Bld) [#/Vol]0.0 10 3/uL 0.0-0.1FMercy HealthBasophils/100 WBC Auto (Bld)on 78-77-3739Guzpocbir/100 WBC (Bld)0.8 %0.2-2.0[facility] [place] Cholesterol in LDL Calc [Mass/Vol]on 06-72-4076Fmnmjjzcgvm in LDL [Mass/Vol] 100.4 mg/dLKettering Health [place] TownshipComment on above:<100 mg/dl CFNDAAM609-756 mg/dl NEAR OR ABOVE GASUTHA761-256 mg/dl BORDERLINE KYUX724-452 mg/dl HIGH>190 mg/dl VERY HIGHCholesterol in VLDL Calc [Mass/Vol]on 02-19-2024 Cholesterol in VLDL [Mass/Vol]15.6 mg/dLKettering Health [place] Township Eosinophils/100 WBC Auto (Bld)on 76-10-0340Jordynprjqu/100 WBC (Bld)1.9 %0.9-7.0 [facility] [place] TownshipErythrocyte distribution width Auto (RBC) [Ratio]on 26-99-5779Vuuffjtpkjs distribution width (RBC) [Ratio]13.2 %11.0-15.0 [facility] [place] TownshipEstimated glomerular filtration rate (GFR) non- Americanon 79-23-1528ZJC/1.73 sq M.predicted among non-blacks MDRD (S/P/Bld) [Vol rate/Area]44 mL/min/{1.73_m2}>=60[facility] [place] TownshipGlobulin Calc (S) [Mass/Vol]on 86-30-9075Pqncjonj (S) [Mass/Vol]2.8 g/dL [facility] [place] TownshipHematocrit Auto (Bld) [Volume fraction]on 99-10-6482Wdgzurtueu (Bld) [Volume fraction]31.2 %36.0-48.0[facility] [place] TownshipHemoglobin [Mass/volume] in Bloodon 15-52-9508Uairvxuinx (Bld) [Mass/Vol]10.0 g/dL12.0-16.0[facility] [place] TownshipLaboratory - Chemistry and Chemistry - challengeon 18-59-3519Cofrcjv [Mass/Vol]3.2 g/dL 3.4-5.0[facility] [place] TownshipALP [Catalytic activity/Vol]49 U/L46-116 [facility] [place] TownshipALT [Catalytic activity/Vol]15 U/L14-59 [facility] [place] TownshipAST [Catalytic activity/Vol]15 U/L15-37 [facility] [place] TownshipBilirubin [Mass/Vol]0.5 mg/dL0.2-1.0[facility] [place] TownshipCalcium [Mass/Vol]9.4 mg/dL8.5-10.1FMercy HealthChloride [Moles/Vol]108 mmol/O95-158LttzswkaxKettering Health [place] TownshipCholesterol [Mass/Vol]158 mg/dL<=200[facility] [place] Cholesterol in HDL [Mass/Vol]42 mg/eH63-35YfmuqdujhKettering Health [place] Township Comment on above:> or =60 mg/dl - LOW CARDIOVASCULAR RISK<40 mg/dl - HIGH CARDIOVASCULAR RISKCO2 [Moles/Vol]28.7 mmol/L21.0-32.0[facility] [place] TownshipCreatinine [Mass/Vol]1.18 mg/dL0.55-1.02[facility] [place] GFR/1.73 sq M.predicted MDRD (S/P/Bld) [Vol rate/Area]53 mL/min/{1.73_m2}>=60 [facility] [place] TownshipGlucose [Mass/Vol]93 mg/fM75-239VbvpiwcuzK[facility]tering Health [place] TownshipPotassium [Moles/Vol]4.0 mmol/L3.5-5.1FMercy HealthProtein [Mass/Vol]6.0 g/dL6.4-8.2FMercy Health Sodium [Moles/Vol]145 mmol/U156-241SagblpqxrKettering Health [place] TownshipTriglyceride [Mass/Vol]78 mg/dL<=150[facility] [place] TownshipTS Qn4.696 m[IU]/L 0.358-3.740[facility] [place] TownshipUrea nitrogen [Mass/Vol]20.0 mg/dL 7.0-18.0[facility] [place] TownshipUrea nitrogen/Creatinine [Mass ratio] 16.9 mg/mgKettering Health [place] TownshipLaboratory - Hematology and Cell countson 46-77-4293Pibovioj granulocytes/100 WBC (Bld)0.6 %0.0-0.5FMercy HealthLeukocytes [#/volume] corrected for nucleated erythrocytes in Blood by Automated counon 45-08-5508OHO corrected for nucl RBC Auto (Bld) [#/Vol]5.3 10 3/uL4.0-11.0[facility] [place] Lymphocytes Auto (Bld) [#/Vol]on 07-18-4626Tvisrrndyja (Bld) [#/Vol]1.1 10 3/uL 1.2-3.8[facility] [place] TownshipLymphocytes/100 WBC Auto (Bld)on 94-28-9260Vaouwxelyms/100 WBC (Bld)21.3 %20.5-60.0[facility] [place] TownshipMCH Auto (RBC) [Entitic mass]on 54-78-9996MIT (RBC) [Entitic mass]29.6 pg 26.7-34.0[facility] [place] TownshipMCHC Auto (RBC) [Mass/Vol]on 53-94-7711KKDE (RBC) [Mass/Vol]32.1 g/dL29.9-35.2FMercy HealthMCV Auto (RBC) [Entitic vol]on 90-86-5869PCL (RBC) [Entitic vol]92.3 fL 81.0-99.0[facility] [place] TownshipMonocytes Auto (Bld) [#/Vol]on 14-44-7763Afkecbwsm (Bld) [#/Vol]0.6 10 3/uL0.3-0.8[facility] [place] TownshipMonocytes/100 WBC Auto (Bld)on 80-93-5741Iqjieyddx/100 WBC (Bld)11.1 % 1.7-12.0[facility] [place] TownshipNeutrophils Auto (Bld) [#/Vol]on 88-27-9896Pagfnfimgfg (Bld) [#/Vol]3.4 10 3/uL1.4-6.5FMercy HealthNeutrophils/100 WBC Auto (Bld)on 94-80-6853Pwfkzpgqwbx/100 WBC (Bld)64.3 % 43.0-75.0[facility] [place] TownshipNo Panel Informationon 02-19-2024 Eosinophils # (Auto)0.1 10 3/uL0.0-0.7FMercy HealthImmature Granulocyte # (Auto)0.03 10 3/uL0.00-0.03[facility] [place] Platelet mean volume Auto (Bld) [Entitic vol]on 74-81-1085Hgvvrxfh mean volume (Bld) [Entitic vol]10.4 fL9.5-13.5FMercy HealthPlatelets Auto (Bld) [#/Vol]on 32-71-4668Etljzfrpq (Bld) [#/Vol]262 10 3/vW550-454 [facility] [place] TownshipRBC Auto (Bld) [#/Vol]on 96-49-3952JDA (Bld) [#/Vol]3.38 10 6/uL4.20-5.40[facility] Hospitalerum or plasma albumin/globulin mass ratioon 30-29-0772Jxogjaz/Globulin [Mass ratio]1.1 {ratio} [facility] Hospitalerum or plasma anion gap determinationon 65-60-0123Jlceu gap [Moles/Vol]12.3 mmol/LFTriHealth Bethesda North Hospitalerum or plasma total cholesterol/high density lipoprotein (HDL) cholesterol mass rat on 85-40-5956Wmcbukqbaqh.total/Cholesterol in HDL [Mass ratio]3.8 {ratio} [facility] [place] TownshipComment on above:3.3 - 4.4 LOW RISK4.4 - 7.1 AVERAGE RISK7.1 - 11.0 MODERATE RISK>11.0 HIGH RISKBasophils Auto (Bld) [#/Vol] on 56-34-1109Kcrtphker (Bld) [#/Vol]0.0 10 3/uL0.0-0.1FMercy HealthBasophils/100 WBC Auto (Bld)on 33-90-2063Aiymwvgwl/100 WBC (Bld)0.4 % 0.2-2.0[facility] [place] TownshipEosinophils/100 WBC Auto (Bld)on 29-27-5189Ewzllzpgzuk/100 WBC (Bld)1.2 %0.9-7.0[facility] [place] Erythrocyte distribution width Auto (RBC) [Ratio]on 79-74-5859Lxgioqbiznj distribution width (RBC) [Ratio]13.2 %11.0-15.0[facility] [place] Estimated glomerular filtration rate (GFR) non- Americanon 02-18-2024 GFR/1.73 sq M.predicted among non-blacks MDRD (S/P/Bld) [Vol rate/Area]34 mL/min/{1.73_m2}>=60[facility] [place] TownshipHematocrit Auto (Bld) [Volume fraction]on 44-18-3506Dstbzjxoag (Bld) [Volume fraction]31.7 %36.0-48.0 [facility] [place] TownshipHemoglobin [Mass/volume] in Bloodon 02-18-2024 Hemoglobin (Bld) [Mass/Vol]10.3 g/dL12.0-16.0[facility] [place] Laboratory - Chemistry and Chemistry - challengeon 46-62-4657Aknrumepr [Mass/Vol]2.3 mg/dL1.8-2.4FMercy HealthNatriuretic peptide B (Bld) [Mass/Vol]800.0 pg/mL<=1800.0[facility] [place] TownshipCalcium [Mass/Vol]9.0 mg/dL8.5-10.1FMercy HealthChloride [Moles/Vol] 106 mmol/V38-034YuwcttcasK[facility] Health [place] TownshipCO2 [Moles/Vol]30.4 mmol/L 21.0-32.0[facility] [place] TownshipCreatinine [Mass/Vol]1.46 mg/dL 0.55-1.02[facility] [place] TownshipGFR/1.73 sq M.predicted MDRD (S/P/Bld) [Vol rate/Area]42 mL/min/{1.73_m2}>=60[facility] [place] TownshipGlucose [Mass/Vol]102 mg/oK46-012IcmhjlsxhKettering Health [place] TownshipPotassium [Moles/Vol] 4.1 mmol/L3.5-5.1FTriHealth Bethesda North Hospitalodium [Moles/Vol]144 mmol/L 136-145[facility] [place] TownshipUrea nitrogen [Mass/Vol]21.0 mg/dL 7.0-18.0[facility] [place] TownshipUrea nitrogen/Creatinine [Mass ratio] 14.4 mg/mgKettering Health [place] TownshipLaboratory - Hematology and Cell countson 16-36-9454Mpuzoamw granulocytes/100 WBC (Bld)0.7 %0.0-0.5FMercy HealthLeukocytes [#/volume] corrected for nucleated erythrocytes in Blood by Automated counon 1942GJE corrected for nucl RBC Auto (Bld) [#/Vol]6.8 10 3/uL4.0-11.0[facility] [place] Lymphocytes Auto (Bld) [#/Vol]on 37-65-2201Sqorybkjxkm (Bld) [#/Vol]0.8 10 3/uL 1.2-3.8[facility] [place] TownshipLymphocytes/100 WBC Auto (Bld)on 74-48-1781Dpyisuiojxf/100 WBC (Bld)11.2 %20.5-60.0[facility] HospitalH Auto (RBC) [Entitic mass]on 05-00-6147GLN (RBC) [Entitic mass]29.3 pg 26.7-34.0[facility] [place] TownshipMCHC Auto (RBC) [Mass/Vol]on 73-16-8091SIPD (RBC) [Mass/Vol]32.5 g/dL29.9-35.2FMercy HealthMCV Auto (RBC) [Entitic vol]on 10-65-6573YNN (RBC) [Entitic vol]90.1 fL 81.0-99.0[facility] [place] TownshipMonocytes Auto (Bld) [#/Vol]on 83-50-1008Eftepnlqx (Bld) [#/Vol]0.6 10 3/uL0.3-0.8[facility] [place] TownshipMonocytes/100 WBC Auto (Bld)on 33-64-3963Vignxslep/100 WBC (Bld)9.5 % 1.7-12.0[facility] [place] TownshipNeutrophils Auto (Bld) [#/Vol]on 45-02-9773Zodstyppfqc (Bld) [#/Vol]5.2 10 3/uL1.4-6.5FMercy HealthNeutrophils/100 WBC Auto (Bld)on 36-53-4937Ptxthlkypct/100 WBC (Bld)77.0 % 43.0-75.0[facility] [place] TownshipNo Panel Informationon 02-18-2024 Troponin I High Jjoqmtxwjpw35.1 pg/mL4.0-51.3FMercy Health Comment on above:CUT-OFF POINTS HAVE BEEN ESTABLISHED [...] AND CLINICAL INFORMATION.Eosinophils # (Auto) 0.1 10 3/uL0.0-0.7FMercy HealthImmature Granulocyte # (Auto) 0.05 10 3/uL0.00-0.03[facility] [place] TownshipPlatelet mean volume Auto (Bld) [Entitic vol]on 33-50-5869Hzcspker mean volume (Bld) [Entitic vol]10.1 fL 9.5-13.5FMercy HealthPlatelets Auto (Bld) [#/Vol]on 88-39-8372Zxadvieeq (Bld) [#/Vol]255 10 3/eM983-449TskyvcydwK[facility]tering Health [place] TownshipRBC Auto (Bld) [#/Vol]on 10-72-3033KZD (Bld) [#/Vol]3.52 10 6/uL4.20-5.40 [facility] Hospitalerum or plasma anion gap determinationon 99-32-3789Offbg gap [Moles/Vol]11.7 mmol/LFMercy Health Basophils Auto (Bld) [#/Vol]on 85-73-6962Ayzvsohok (Bld) [#/Vol]0.1 10 3/uL 0.0-0.1FMercy HealthBasophils/100 WBC Auto (Bld)on 98-10-0907Migsfswgg/100 WBC (Bld)1.1 %0.2-2.0[facility] [place] Cholesterol in LDL Calc [Mass/Vol]on 89-43-1847Vkoruquzyhf in LDL [Mass/Vol] 113.6 mg/dLKettering Health [place] TownshipComment on above:<100 mg/dl KPAIRFR075-581 mg/dl NEAR OR ABOVE XQVNYRW240-145 mg/dl BORDERLINE QWFM280-735 mg/dl HIGH>190 mg/dl VERY HIGHCholesterol in VLDL Calc [Mass/Vol]on 02-02-2024 Cholesterol in VLDL [Mass/Vol]10.4 mg/dLKettering Health [place] Township Eosinophils/100 WBC Auto (Bld)on 32-50-0208Ebufufuggty/100 WBC (Bld)2.3 %0.9-7.0 [facility] [place] TownshipErythrocyte distribution width Auto (RBC) [Ratio]on 95-07-7255Ywjhaqlwack distribution width (RBC) [Ratio]13.1 %11.0-15.0 [facility] [place] TownshipEstimated glomerular filtration rate (GFR) non- Americanon 79-78-8352FEW/1.73 sq M.predicted among non-blacks MDRD (S/P/Bld) [Vol rate/Area]34 mL/min/{1.73_m2}>=60[facility] [place] TownshipGlobulin Calc (S) [Mass/Vol]on 22-41-8032Pgrjaqaf (S) [Mass/Vol]3.0 g/dL [facility] [place] TownshipHematocrit Auto (Bld) [Volume fraction]on 20-79-2778Bkqquvunxx (Bld) [Volume fraction]34.7 %36.0-48.0[facility] [place] TownshipHemoglobin [Mass/volume] in Bloodon 23-58-8819Punxgictua (Bld) [Mass/Vol]10.9 g/dL12.0-16.0[facility] [place] TownshipLaboratory - Chemistry and Chemistry - challengeon 44-06-8961Ybcemby [Mass/Vol]3.4 g/dL 3.4-5.0[facility] [place] TownshipALP [Catalytic activity/Vol]52 U/L46-116 [facility] [place] TownshipALT [Catalytic activity/Vol]13 U/L14-59 [facility] [place] TownshipAST [Catalytic activity/Vol]14 U/L15-37 [facility] [place] TownshipBilirubin [Mass/Vol]0.3 mg/dL0.2-1.0[facility] [place] TownshipCalcium [Mass/Vol]9.3 mg/dL8.5-10.1FMercy HealthChloride [Moles/Vol]109 mmol/M66-764BwrhokdtdK[facility]tering Health [place] TownshipCholesterol [Mass/Vol]169 mg/dL<=200[facility] [place] Cholesterol in HDL [Mass/Vol]45 mg/kP50-01VfejyzwaeK[facility]tering Health [place] Comment on above:> or =60 mg/dl - LOW CARDIOVASCULAR RISK<40 mg/dl - HIGH CARDIOVASCULAR RISKCO2 [Moles/Vol]29.8 mmol/L21.0-32.0[facility] [place] TownshipCreatinine [Mass/Vol]1.47 mg/dL0.55-1.02[facility] [place] GFR/1.73 sq M.predicted MDRD (S/P/Bld) [Vol rate/Area]41 mL/min/{1.73_m2}>=60 [facility] [place] TownshipGlucose [Mass/Vol]104 mg/sK01-954UiacirktaKet[facility] Health [place] TownshipPotassium [Moles/Vol]4.9 mmol/L3.5-5.1FMercy HealthProtein [Mass/Vol]6.4 g/dL6.4-8.2FMercy Health Sodium [Moles/Vol]147 mmol/N501-051RizpaxgbuKettering Health [place] TownshipTriglyceride [Mass/Vol]52 mg/dL<=150[facility] [place] TownshipTS Qn3.613 m[IU]/L 0.358-3.740[facility] [place] TownshipUrea nitrogen [Mass/Vol]24.0 mg/dL 7.0-18.0[facility] [place] TownshipUrea nitrogen/Creatinine [Mass ratio] 16.3 mg/mgKettering Health [place] TownshipLaboratory - Hematology and Cell countson 26-03-6248Cjilkhsm granulocytes/100 WBC (Bld)0.4 %0.0-0.5FMercy HealthLeukocytes [#/volume] corrected for nucleated erythrocytes in Blood by Automated counon 79-81-9084OSO corrected for nucl RBC Auto (Bld) [#/Vol]5.6 10 3/uL4.0-11.0[facility] [place] Lymphocytes Auto (Bld) [#/Vol]on 40-84-2544Phszskhurfg (Bld) [#/Vol]1.1 10 3/uL 1.2-3.8[facility] [place] TownshipLymphocytes/100 WBC Auto (Bld)on 07-38-1683Zyxcptktgij/100 WBC (Bld)20.2 %20.5-60.0[facility] Auto (RBC) [Entitic mass]on 05-07-4494RGG (RBC) [Entitic mass]29.8 pg 26.7-34.0[facility] [place] TownshipMCHC Auto (RBC) [Mass/Vol]on 19-01-8234SXCL (RBC) [Mass/Vol]31.4 g/dL29.9-35.2FMercy HealthMCV Auto (RBC) [Entitic vol]on 84-41-3494RZM (RBC) [Entitic vol]94.8 fL 81.0-99.0[facility] [place] TownshipMonocytes Auto (Bld) [#/Vol]on 70-17-4147Cgmcjulmm (Bld) [#/Vol]0.7 10 3/uL0.3-0.8[facility] [place] TownshipMonocytes/100 WBC Auto (Bld)on 92-87-7496Rcedadcti/100 WBC (Bld)11.7 % 1.7-12.0[facility] [place] TownshipNeutrophils Auto (Bld) [#/Vol]on 41-34-2359Dxvwlixrqur (Bld) [#/Vol]3.6 10 3/uL1.4-6.5FMercy HealthNeutrophils/100 WBC Auto (Bld)on 29-65-1970Eddrmlmqbkt/100 WBC (Bld)64.3 % 43.0-75.0[facility] TownshipNo Panel Informationon 02-02-2024 Eosinophils # (Auto)0.1 10 3/uL0.0-0.7FMercy HealthImmature Granulocyte # (Auto)0.02 10 3/uL0.00-0.03[facility] Platelet mean volume Auto (Bld) [Entitic vol]on 39-96-8899Wqkwhedq mean volume (Bld) [Entitic vol]10.6 fL9.5-13.5FMercy HealthPlatelets Auto (Bld) [#/Vol]on 67-25-3607Shabhbzys (Bld) [#/Vol]253 10 3/eB223-342 [facility] TownshipRBC Auto (Bld) [#/Vol]on 45-24-4196RWO (Bld) [#/Vol]3.66 10 6/uL4.20-5.40[facility] Hospitalerum or plasma albumin/globulin mass ratioon 93-41-0272Ljmwzbf/Globulin [Mass ratio]1.1 {ratio} [facility] Hospitalerum or plasma anion gap determinationon 22-84-2419Wctpj gap [Moles/Vol]13.1 mmol/LFTriHealth Bethesda North Hospitalerum or plasma total cholesterol/high density lipoprotein (HDL) cholesterol mass rat on 08-99-4205Aiqsbaodlcj.total/Cholesterol in HDL [Mass ratio]3.8 {ratio} [facility] TownshipComment on above:3.3 - 4.4 LOW RISK4.4 - 7.1 AVERAGE RISK7.1 - 11.0 MODERATE RISK>11.0 HIGH RISKUA RANDOM W/MICROSCOPICon 52-98-5508Ctozqmi (U)CLEARCLEAREuclises Pharmaceuticals [employer] Other Color (U)DK YELLOWYELLOWGassaway [employer]ora Other Ketones Ql (U)NegativeNEGATIVE mg/dLGassaway [employer] Other Leukocyte esterase Test strip Ql (U)NegativeNEGATIVE Style on Screen Other pH (U)6.5 [pH]5.0-9.0[employer] Other ua RANDOM W/MICROSCOPIC0-2 #/HPFAbnormalNONE SEEN #/HPFGassaway Eduora Other ua RANDOM W/MICROSCOPIC5-10 #/HPFAbnormal0-2 #/HPF [employer] Other ua RANDOM W/MICROSCOPICsee noteNomissouri baptist hospital-[facility]ullivan [employer] Other ua RANDOM W/MICROSCOPIC1.0101.005-1.025[place] Other ua RANDOM W/MICROSCOPICNegativeNEGATIVEStyle on Screen Other ua RANDOM W/MICROSCOPICLARGEAbnormNetWitnessNEGLowfoot [employer] Other ua RANDOM W/MICROSCOPICPositiveAbnormalNEGMovolo.comEuclises Pharmaceuticals [employer] Other UA RANDOM W/MICROSCOPIC1.0 EU/dL0.2-1.0 EU/dLNomissouri baptist hospital-[facility] [employer] Other UA RANDOM W/MICROSCOPICTRACE #/HPFAbnormalNONE SEEN #/HPFGassaway Eduora Other ua RANDOM W/MICROSCOPICNONE SEENNONE SEENSt. Anthony Hospital indidebt Other ua RANDOM W/MICROSCOPICRARE #/LPFNONE/RARE #/LPFSt. Anthony Hospital indidebt Other ua RANDOM W/MICROSCOPICNone Seen #/HPFNone Seen #/HPF [facility]bt Other ua RANDOM W/MICROSCOPICNONE SEEN #/LPFNONE SEEN #/LPF [facility]bt Other Urinalysis - DIPSTICKon 65-19-4443Imemsnihkf (U)clear [employer] Other Bilirubin Ql (U)NegativeGassaway [employer] Other Color (U)light yellowGassaway [employer] Other Glucose Ql (U)[facility] Edu[employer] Other Hemoglobin Ql (U)+++[place] [employer] Other Ketones Ql (U)NegativeGassaway Eduora Other Leukocyte esterase Test strip Ql (U)NegativeGassaway Edu[place] Other Nitrite Ql (U)NegativeGassaway [place] Other pH (U)0.2 [pH]Style on Screen Other Protein Ql (U)traceGassaway Edu[place] Other Specific gravity (U) [Rel density]1.005[place] [employer] Other Urobilinogen (U) [Mass/Vol]off chartGassaway Eduora Other Urinalysis - DIPSTICKNorth Eduora Other ESR Westergren method (Bld) [Velocity]on 41-80-6271MAT (Bld) [Velocity]119 mm/hHigh0 - 20 mm/hrEast [place] Regional HospitalFERRITIN BLDon 06-70-5466Usdrrfmu [Mass/Vol]160.0 ng/mL14.7 - 205.1 ng/mLCleveland Glencoe Regional Health ServicesIron and Iron binding capacity panelon 17-56-5404Acir [Mass/Vol]45 ug/dL41 - 186 ug/dLEast [place] Regional HospitalIron binding capacity [Mass/Vol]252 ug/dL232 - 386 ug/dL [facility] [place] [facility] HospitalIron/TIBC [Molar ratio]17.9 %15.0 - 57.0 %[facility] metabolic 2000 panelon 29-92-3846Gwdkg gap [Moles/Vol]10 mmol/L9 - 18 mmol/L [facility] [place] [facility] HospitalCalcium [Mass/Vol]9.2 mg/dL8.5 - 10.2 mg/dLEast [place] Regional Hospital Chloride [Moles/Vol]106 mmol/LHigh97 - 105 mmol/LCleveland ClinicCO2 [Moles/Vol] 27 mmol/L22 - 30 mmol/LCleveland Glencoe [facility] Health ServicesCreatinine [Mass/Vol]1.09 mg/dLHigh0.58 - 0.96 mg/dLEast [place] Regional HospitalEstimated Glomerular Filtration Rate51 mL/min/1.73m Low>=60 mL/min/1.73mCleveland Glencoe Regional Health ServicesGlucose [Mass/Vol]116 mg/pAXevb08 - 99 mg/dL [facility] [place] [facility] HospitalPotassium [Moles/Vol]4.3 mmol/L3.7 - 5.1 mmol/LCleveland Glencoe [facility] Services Sodium [Moles/Vol]143 mmol/L136 - 144 mmol/LCleveland Glencoe Regional Health ServicesUrea nitrogen [Mass/Vol]19 mg/dL7 - 21 mg/dLSelect Medical Specialty [facility], Inc W Auto Differential panel (Bld)on 84-26-7584Mhljmikcz (Bld) [#/Vol]0.04 10*3/uL<0.11 k/uLEast [place] Regional Hospital Basophils/100 WBC (Bld)0.8 %[facility] [place] [facility] HospitalDifferential cell count method Nom (Bld)AutoCleveland ClinicEosinophils (Bld) [#/Vol]0.14 10*3/uL<0.46 k/uL [facility] [place] [facility] HospitalEosinophils/100 WBC (Bld)2.9 %[facility] [place] [facility] HospitalErythrocyte distribution width (RBC) [Ratio]13.6 %11.5 - 15.0 %[facility] [place] [facility] HospitalHematocrit (Bld) [Volume fraction]28.8 %Low36.0 - 46.0 %[facility] [place] [facility] HospitalHemoglobin (Bld) [Mass/Vol]9.2 g/dLLow11.5 - 15.5 g/dLEast [place] Regional HospitalImmature granulocytes (Bld) [#/Vol]<0.10 k/uLEast [place] Regional HospitalImmature granulocytes/100 WBC (Bld)0.4 % [facility] [place] [facility] HospitalLymphocytes (Bld) [#/Vol]0.83 10*3/uLLow1.00 - 4.00 k/uL [facility] [place] [facility] HospitalLymphocytes/100 WBC (Bld)17.4 %[facility] HospitalH (RBC) [Entitic mass]29.6 pg26.0 - 34.0 pgClevelMarshall Regional Medical CenterHC (RBC) [Mass/Vol]31.9 g/dL30.5 - 36.0 g/dLKeenan Private HospitalV (RBC) [Entitic vol]92.6 fL80.0 - 100.0 fLCleveland ClinicMonocytes (Bld) [#/Vol]0.40 10*3/uL<0.87 k/uLEast [place] [facility] Hospital Monocytes/100 WBC (Bld)8.4 %[facility] [place] [facility] HospitalNeutrophils (Bld) [#/Vol]3.35 10*3/uL1.45 - 7.50 k/uLEast [place] Regional HospitalNeutrophils/100 WBC (Bld)70.1 %[facility] [place] [facility] HospitalNucleated RBC (Bld) [#/Vol]<0.01 k/uLEast [place] Regional HospitalNucleated RBC/100 WBC (Bld) [Ratio]0.0 /100 WBCEast [place] Regional HospitalPlatelet mean volume (Bld) [Entitic vol]10.2 fL9.0 - 12.7 fLCleveland ClinicPlatelets (Bld) [#/Vol]274 10*3/uL150 - 400 k/uLEast [place] Regional HospitalRBC (Bld) [#/Vol]3.11 10*6/uLLow3.90 - 5.20 m/uL [facility] [place] [facility] HospitalWBC (Bld) [#/Vol]4.78 10*3/uL3.70 - 11.00 k/uLEast [place] [facility] Hospital RETIC COUNTon 77-49-1607Hlkfpkbvhfflz (Bld) [#/Vol]0.05384 10*3/uL0.018 - 0.100 M/uLEast [place] Regional HospitalReticulocytes (Bld) [#/Vol]on 01-92-3574Fxfsaawnmhdeu/100 RBC (Bld)2.0 %0.4 - 2.0 %[facility] [place] [facility] HospitalBasophils Auto (Bld) [#/Vol]Ordered By: Lj Ryan on 46-41-6339Umlzzjhao (Bld) [#/Vol]0.0 10*3/uL0.0-0.2FMercy HealthBasophils/100 WBC Auto (Bld)Ordered By: Lj Ryan on 58-37-3362Ycwpxczbs/100 WBC (Bld)0.7 %.[facility] TownshipCalcium [Mass/volume] in Serum or PlasmaOrdered By: Lj Ryan on 06-44-8003Gjkfpuu [Mass/Vol]8.9 mg/dL8.6-10.3FMercy HealthCarbon dioxide, total [Moles/volume] in Serum or PlasmaOrdered By: Lj Ryan on 48-73-2740YI4 [Moles/Vol]30.5 mmol/L21.0-31.0[facility] TownshipChloride [Moles/volume] in Serum or PlasmaOrdered By: Lj Ryan on 46-92-2776Makvgpya [Moles/Vol]103 mmol/A10-761XvaefoozrKettering Health Washington TownshipCreatinine [Mass/volume] in Serum or PlasmaOrdered By: Lj Ryan on 65-87-2284Qodswrrtdw [Mass/Vol]1.37 mg/dL0.60-1.20[facility] TownshipEosinophils Auto (Bld) [#/Vol]Ordered By: Lj Ryan on 35-48-4065Rqgzscjjmep (Bld) [#/Vol]0.1 10*3/uL0.0-0.45[facility] TownshipEosinophils/100 WBC Auto (Bld) Ordered By: Lj Ryan on 01-26-2943Emqbyqhqngz/100 WBC (Bld)1.9 %.[facility] TownshipErythrocyte distribution width Auto (RBC) [Ratio]Ordered By: Lj Ryan on 76-21-1482Yhonhaqelgf distribution width (RBC) [Ratio]14.1 % 11.9-15.3FMercy HealthGlucose [Mass/volume] in Serum or PlasmaOrdered By: Lj Ryan on 00-06-8751Eoptrrl [Mass/Vol]94 mg/gH97-215 [facility] TownshipComment on above:ADA recommended reference rangeRandom Glucose Reference Range is dependent on time and content of last meal. Glucose of more than 200 mg/dL in a nonstressed, ambulatory subject supports the diagnosisof Diabetes Mellitus.Hematocrit Auto (Bld) [Volume fraction]Ordered By: Lj Ryan on 27-20-1117Ekmkesenln (Bld) [Volume fraction]28.2 %34.0-46.4FMercy HealthHemoglobin [Mass/volume] in BloodOrdered By: Lj Ryan on 59-73-9781Oqnfchkzfa (Bld) [Mass/Vol]9.7 g/dL11.8-15.4FMercy HealthLeukocytes [#/volume] corrected for nucleated erythrocytes in Blood by Automated coun Ordered By: Lj Ryan on 30-05-6468XWY corrected for nucl RBC Auto (Bld) [#/Vol]6.0 10*3/uL3.8-11.6FMercy HealthLymphocytes Auto (Bld) [#/Vol]Ordered By: Lj Ryan on 81-14-4140Xbvwqpldyma (Bld) [#/Vol]0.9 10*3/uL1.00-4.8[facility] TownshipLymphocytes/100 WBC Auto (Bld) Ordered By: Lj Ryan on 29-45-2667Tsjbxonwnuo/100 WBC (Bld)15.1 %.[facility] HospitalH Auto (RBC) [Entitic mass]Ordered By: Lj Ryan on 14-79-1027KSQ (RBC) [Entitic mass]30.2 pg24.7-34.3FMercy HealthMCHC Auto (RBC) [Mass/Vol]Ordered By: Lj Ryan on 72-69-8982MWOU (RBC) [Mass/Vol]34.4 g/dL32.0-35.0[facility] TownshipMCV Auto (RBC) [Entitic vol]Ordered By: Lj Ryan on 18-01-1646JSG (RBC) [Entitic vol]87.7 gQ69-490NqpboggteKettering Health Washington TownshipMagnesium [Mass/volume] in Serum or PlasmaOrdered By: Lj Ryan on 91-54-6991Omccdicos [Mass/Vol]2.1 mg/dL1.9-2.7 [facility] TownshipMonocytes Auto (Bld) [#/Vol]Ordered By: Lj Ryan on 52-05-2238Mfxjzbxql (Bld) [#/Vol]0.5 10*3/uL0.0-0.8[facility] TownshipMonocytes/100 WBC Auto (Bld)Ordered By: Lj Ryan on 05-18-2023 Monocytes/100 WBC (Bld)8.7 %.[facility] TownshipNeutrophils Auto (Bld) [#/Vol]Ordered By: Lj Ryan on 24-70-8898Uhqfcoulxyt (Bld) [#/Vol]4.4 10*3/uL1.8-7.7FMercy HealthNeutrophils/100 WBC Auto (Bld) Ordered By: Lj Ryan on 05-26-7130Sevllbiudoo/100 WBC (Bld)73.6 %.[facility] TownshipNo Panel InformationOrdered By: Lj Ryan on 79-71-8488Ntaqybbns GFR (CKD-EPI)39.034 mL/MinKettering Health Washington Township Pharmacy Creatinine Clearance (Chem38.04[facility] Nucleated erythrocytes [Presence] in Blood by Automated countOrdered By: Lj Ryan on 06-01-9215Zbquuiasp RBC Auto Ql (Bld)0.1 /100{WBC}0-0.5FMercy HealthPhosphate [Mass/volume] in Serum or PlasmaOrdered By: Lj Ryan on 93-92-3944Gjpbhooas [Mass/Vol]5.3 mg/dL3.7-7.2FMercy HealthPlatelet mean volume Auto (Bld) [Entitic vol]Ordered By: Lj Ryan on 69-19-0425Wewbeepv mean volume (Bld) [Entitic vol]7.8 fL6.3-10.7 [facility] TownshipPlatelets Auto (Bld) [#/Vol]Ordered By: Lj Ryan on 91-86-6371Jqbepufoq (Bld) [#/Vol]314 10*3/cT465-983TjvezhqwjKettering Health Washington TownshipPotassium [Moles/volume] in Serum or PlasmaOrdered By: Lj Ryan on 63-28-1838Ysgbfzjos [Moles/Vol]4.0 mmol/L3.5-5.1FMercy HealthRBC Auto (Bld) [#/Vol]Ordered By: Lj Ryan on 64-58-0123YEC (Bld) [#/Vol]3.21 10*6/uL3.60-5.00[facility]al Hospitalerum or plasma anion gap determinationOrdered By: Lj Ryan on 64-08-5503Xutlh gap [Moles/Vol]12.5 mmol/L6.0-15.0[facility] Hospitalodium [Moles/volume] in Serum or PlasmaOrdered By: Lj Ryan on 42-56-3790Hhwpwp [Moles/Vol]142 mmol/D943-712EmkosdactKettering Health Washington TownshipUrea nitrogen [Mass/volume] in Serum or PlasmaOrdered By: Lj Ryan on 53-03-7454Ozqw nitrogen [Mass/Vol]21 mg/dL7-25[facility] TownshipWBC Auto (Bld) [#/Vol]Ordered By: Lj Ryan on 76-05-8106GAE (Bld) [#/Vol]6.0 10*3/uL 3.8-11.6FMercy HealthAlanine aminotransferase [Enzymatic activity/volume] in Serum or PlasmaOrdered By: Fernando Ch on 16-43-6858YZG [Catalytic activity/Vol]14 U/L7-52[facility] TownshipAlbumin [Mass/volume] in Serum or Plasma by Bromocresol green (BCG) dye binding metho Ordered By: Fernando Ch on 89-21-3942Fettbxe BCG dye [Mass/Vol]4.0 g/dL3.5-5.7 [facility] TownshipAlkaline phosphatase [Enzymatic activity/volume] in Serum or PlasmaOrdered By: Fernando Ch on 32-91-5101SLI [Catalytic activity/Vol]44 U/K58-166AikpyzeewKettering Health Washington TownshipAspartate aminotransferase [Enzymatic activity/volume] in Serum or PlasmaOrdered By: Fernando Ch on 58-65-1384YSK [Catalytic activity/Vol]16 U/I68-59UpwwhkgzyKettering Health Washington TownshipBilirubin.total [Mass/volume] in Serum or PlasmaOrdered By: Fernando Ch on 88-19-9785Beuiwwtjg [Mass/Vol]0.7 mg/dL0.3-1.0[facility] TownshipCreatine kinase [Enzymatic activity/volume] in Serum or Plasma Ordered By: Fernando Ch on 27-37-5456JF [Catalytic activity/Vol]49 U/L30-223 [facility] TownshipGlobulin Calc (S) [Mass/Vol]Ordered By: Fernando Ch on 90-45-0564Evefwlmt (S) [Mass/Vol]2.9 g/dLKettering Health Washington TownshipLaboratory - CoagulationOrdered By: Fernando Ch on 44-41-2350UR Coag (PPP) [Time]12.5 s9.0-12.9[facility] TownshipMonocyte distribution width [Entitic volume] in Blood by AutomatedOrdered By: Fernando Ch on 58-24-6219Qqzivjey distribution width Auto (Bld) [Entitic vol]22.37 %0.00-20.00 [facility] TownshipComment on above:For adults in ED, MDW > 20.0 may be associated with a higher risk of sepsis during the first 12 hrs of hospital admissionNatriuretic peptide B [Mass/Vol]Ordered By: Fernando Ch on 12-19-7843Whzakyjfgtz peptide B (Bld) [Mass/Vol]450.0 pg/mL5-100[facility] TownshipPlatelet poor plasma international normalized ratio (INR) by coagulation assay (relatOrdered By: Fernando Ch on 54-40-5355XQG Coag (PPP) [Relative time]1.1 {INR}[facility] TownshipComment on above: INR Therapeutic Range A) Pre- [...] By: Fernando Ch on 05-17-2023 Protein [Mass/Vol]6.9 g/dL6.4-8.9[facility] Hospitalerum or plasma albumin/globulin mass ratioOrdered By: Fernando Ch on 05-17-2023 Albumin/Globulin [Mass ratio]1.4 {ratio}[facility] Troponin I.cardiac [Mass/volume] in Serum or Plasma by Detection limit <= 0.01 ng/Ordered By: Fernando Ch on 22-04-3363Dhzkifjn I.cardiac DL <= 0.01 ng/mL [Mass/Vol]10.2 pg/mL0.0-15.0[facility] TownshipActivated partial thromboplastin time (aPTT) in platelet poor plasma by coagulation aOrdered By: Jonna Perry on 96-95-9569dQCY Coag (PPP) [Time]32.0 s25.1-36.5FMercy HealthBand form neutrophils/100 WBC Manual cnt (Bld)Ordered By: Jonna Perry on 51-43-4868Upcj form neutrophils/100 WBC (Bld)4 %0-5FMercy HealthBasophils Auto (Bld) [#/Vol]Ordered By: Jonna Perry on 03-08-2023 Basophils (Bld) [#/Vol]N/[facility] HospitalBasophils/100 WBC Auto (Bld)Ordered By: Jonna Perry on 41-29-7131Tnqzxhpvc/100 WBC (Bld)NThe Jewish HospitalBasophils/100 WBC Manual cnt (Bld)Ordered By: Jonna Perry on 75-76-4668Keqktcsne/100 WBC (Bld)0 %0-2FMercy Health Carbon dioxide, total [Moles/volume] in Serum or PlasmaOrdered By: Jonna Perry on 93-07-0037YD5 [Moles/Vol]33.1 mmol/L21.0-31.0[facility] Chloride [Moles/volume] in Serum or PlasmaOrdered By: Jonna Perry on 03-08-2023 Chloride [Moles/Vol]104 mmol/W75-959YbesociltKettering Health Washington TownshipCholesterol [Mass/volume] in Serum or PlasmaOrdered By: Jonna Perry on 18-25-6345Clyvtjymblf [Mass/Vol]151 mg/lS808-950DducfcyxyKettering Health Washington TownshipComment on above:Chol less than 200 mg/dl low riskChol 201-239 mg/dl borderline riskChol 240 mg/dl and greater high riskCholesterol in LDL Calc [Mass/Vol]Ordered By: Jonna Perry on 39-59-2115Fbnsufwqbfz in LDL [Mass/Vol]100 mg/dL0-100[facility] TownshipComment on above:LDL ATP III CLASSIFICATIONLDL less than 100 mg/dL OptimalLDL 100-129 mg/dL Near or above xvffbqkXRI300-641 mg/dL Borderline highLDL 160-189 mg/dL HighLDL greater than 189 mg/dL Very highCholesterol in VLDL Calc [Mass/Vol]Ordered By: Jonna Perry on 07-76-0835Bkqemuneomi in VLDL [Mass/Vol]13 mg/dLKettering Health Washington TownshipCreatinine [Mass/volume] in Serum or PlasmaOrdered By: Jonna Perry on 27-75-9238Hjemrothoa [Mass/Vol]1.14 mg/dL0.60-1.20[facility] TownshipEosinophils Auto (Bld) [#/Vol] Ordered By: Jonna Perry on 22-57-0843Gxomfybeavv (Bld) [#/Vol]N/[facility] HospitalEosinophils/100 WBC Auto (Bld)Ordered By: Jonna Perry on 59-59-5178Xaocdoqajct/100 WBC (Bld)N/[facility] Eosinophils/100 WBC Manual cnt (Bld)Ordered By: Jonna Perry on 03-08-2023 Eosinophils/100 WBC (Bld)2 %1-3FMercy HealthErythrocyte distribution width Auto (RBC) [Ratio]Ordered By: Jonna Perry on 03-08-2023 Erythrocyte distribution width (RBC) [Ratio]14.1 %11.9-15.3FMercy HealthHematocrit Auto (Bld) [Volume fraction]Ordered By: Jonna Perry on 69-66-8126Ngygmnmmtd (Bld) [Volume fraction]30.7 %34.0-46.4FMercy HealthHemoglobin [Mass/volume] in BloodOrdered By: Jonna Perry on 57-77-9684Hfroayhlmn (Bld) [Mass/Vol]10.3 g/dL11.8-15.4FMercy HealthLaboratory - Chemistry and Chemistry - challengeon 03-08-2023 Cholesterol [Mass/Vol]151\S\911Iklzgb793-616GQ-YtcysBagley Medical Center 250 DO Work Phone: Comment on above:Chol less than 200 mg/dl low risk Chol 201-239 mg/dl borderline risk Chol 240 mg/dl and greater high risk Cholesterol in LDL [Mass/Vol]100\S\503Zdnznh2-429YQ-TjzabBagley Medical Center 250 DO Work Phone: Comment on above:LDL ATP III CLASSIFICATION LDL less than 100 mg/dL Optimal LDL 100-129 mg/dL Near or above optimal LDL 130-159 mg/dL Borderline high LDL 160-189 mg/dL High LDL greater than 189 mg/dL Very high Laboratory - CoagulationOrdered By: Jonna Perry on 42-82-2343FL Coag (PPP) [Time] 12.2 s9.0-12.9[facility] TownshipLeukocytes [#/volume] corrected for nucleated erythrocytes in Blood by Automated counOrdered By: Jonna Perry on 24-46-7998ZZB corrected for nucl RBC Auto (Bld) [#/Vol]6.2 10*3/uL3.8-11.6 [facility] TownshipLymphocytes Auto (Bld) [#/Vol]Ordered By: Jonna Perry on 98-47-7798Vzuskywokti (Bld) [#/Vol]N/[facility] HospitalLymphocytes/100 WBC Auto (Bld)Ordered By: Jonna Perry on 03-08-2023 Lymphocytes/100 WBC (Bld)N/[facility] HospitalLymphocytes/100 WBC Manual cnt (Bld)Ordered By: Jonna Perry on 46-29-0292Gftmksrohzt/100 WBC (Bld)16 %18-42[facility] HospitalH Auto (RBC) [Entitic mass]Ordered By: Jonna Perry on 66-73-8883CIS (RBC) [Entitic mass]29.0 pg24.7-34.3FMercy HealthMCHC Auto (RBC) [Mass/Vol]Ordered By: Jonna Perry on 72-26-1323LXKW (RBC) [Mass/Vol]33.6 g/dL32.0-35.0[facility] TownshipMCV Auto (RBC) [Entitic vol]Ordered By: Jonna Perry on 33-33-9648GQL (RBC) [Entitic vol]86.2 zQ73-982ApyxfbxtcKettering Health Washington TownshipMetamyelocytes/100 WBC Manual cnt (Bld)Ordered By: Jonna Perry on 03-39-0039Xyfvrfmgvllwft/100 WBC (Bld)1 %0-0[facility] TownshipMonocytes Auto (Bld) [#/Vol]Ordered By: Jonna Perry on 69-08-9414Buiwrysud (Bld) [#/Vol]N/[facility] HospitalMonocytes/100 WBC Auto (Bld)Ordered By: Jonna Perry on 03-08-2023 Monocytes/100 WBC (Bld)N/[facility] HospitalMonocytes/100 WBC Manual cnt (Bld)Ordered By: Jonna Perry on 51-84-6544Lnyrcjekc/100 WBC (Bld)3 % 2-[facility] TownshipNeutrophils Auto (Bld) [#/Vol]Ordered By: Jonna Perry on 58-09-8982Osldmrtcbyh (Bld) [#/Vol]N/[facility] HospitalNeutrophils/100 WBC Auto (Bld)Ordered By: Jonna Perry on 03-08-2023 Neutrophils/100 WBC (Bld)N/[facility] HospitalNo Panel InformationOrdered By: Jonna Perry on 98-58-3855Rvyzvxqtj GFR (CKD-EPI)48.665 mL/MinKettering Health Washington TownshipPharmacy Creatinine Clearance (ChemN/A [facility] TownshipNo Panel Informationon 92-43-940405.0\S\32.0 Tjnrvg63.1-36.5MP-[facility] 250 DO Work Phone: Comment on above:PERFORMED BY:[place] [id number] [address] [place], [place] [phone] MEDICAL DIRECTORJAMAAL MO M.D.1.1\S\1.1NormalMP-[facility] MinnesotaPinshapeE[facility] 250 DO Work Phone: Comment on above:INR [...] patients with mechanical heart valves: 3 - 4.512.2\S\12.4Gkolhr6.0-12.9MP-[facility] 250 DO Work Phone: [phone]\S\9.7Xtqled6.3-10.7MP-[facility] 250 DO Work Phone: [phone]\S\33.1above high uhbzwsxdj75.0-31.0MP-[facility] 250 DO Work Phone: [phone]\S\587Nasehy05-696AV-Fhfoo [place] [facility] 250 DO Work Phone: [phone]\S\5.1Xmkizl6.5-5.1MP-[facility] 250 DO Work Phone: [phone]\S\538Jznpwr193-625YS-Iutyi [facility] 250 DO Work Phone: [phone]\S\77Rzdwpt6-77CL-Ehbtx [facility] 250 DO Work Phone: [phone]\S\48.665NormalMP-[facility] 250 DO Work Phone: [phone]\S\1.96Ffohsv3.60-1.20MP-[facility] 250 DO Work Phone: [phone]\S\4.0Normal<5.0MP-[facility] 250 DO Work Phone: Comment on above:PERFORMED BY:[place] [id number] [place], [place] [phone] MEDICAL DIRECTORJAMAAL MO M.D.13\S\13NormalMP-[facility] 250 DO Work Phone: [phone]\S\07Ydwugz3-991QP-Lkurg [facility] 250 DO Work Phone: Comment on above:TRIG ATP III CLASSIFICATION TRIG less than 150 mg/dL Normal TRIG 150-199 mg/dL Borderline high QAZQ156-515 mg/dL High TRIG greater than 500 mg/dL Very high Standard traceable to the Center for Disease Conrtrol and Prevention (CDC) test method.38\S\14Ifldso20-18SC-Twczs [facility] 250 DO Work Phone: Comment on above:HDL CHOL ATP-III CLASSIFICATION Cardiovascular Risk HDL > or equal to 60 mg/dL LOW HDL < 40 mg/dL HIGH74\S\74 above high npbqyeisk98-93EC-Sgbos [facility] 250 DO Work Phone: [phone]\S\269Hfwthn065-605JG-Gnkqw [facility] 250 DO Work Phone: [phone]\S\14.5Fatxxp67.9-15.3MP-[facility] 250 DO Work Phone: [phone]\S\33.9Xywplx03.0-35.0MP-[facility] 250 DO Work Phone: [phone]\S\29.6Jdhpbw15.7-34.3MP-[facility] 250 DO Work Phone: [phone]\S\1above high bagsupdfs2-8RU-Mmtfv [facility] [place] 250 DO Work Phone: [phone]\S\5Spwvic2-0GP-Qdbtw [facility] 250 DO Work Phone: [phone]\S\6Zalkaz0-2SG-Aielb [facility] 250 DO Work Phone: [phone]\S\0Bbvnav3-87FG-Kskpd [facility] 250 DO Work Phone: [phone]\S\16below low duhuxxeyc15-04NN-Igzkt [facility] [place] 250 DO Work Phone: [phone]\S\4Yuoztb6-7SP-Boxoy [facility] 250 DO Work Phone: ZhgzksWaqmhvIE-Hpvoy [facility] 250 DO Work Phone: [phone] on above:PERFORMED BY:[facility] [place], [place] [phone] MEDICAL DIRECTORJAMAAL MO M.D.NormalNormalNormalMP-[facility] 250 DO Work Phone: [phone]\S\86.3Bfukfg18-941IT-Ofmzf [facility] 250 DO Work Phone: [phone]\S\30.7below low pxwiezphy59.0-46.4MP-[facility] 250 DO Work Phone: [phone]\S\10.3below low ngndgutjr35.8-15.4MP-[facility] 250 DO Work Phone: [phone]\S\3.56below low threshold3.60-5.00MP-[facility] 250 DO Work Phone: [phone]\S\8.5Tdckdr5.8-11.6MP-[facility] 250 DO Work Phone: [phone]\S\6.1Uaetaa4.8-11.6MP-[facility] 250 DO Work Phone: Nucleated erythrocytes [Presence] in Blood by Automated countOrdered By: Jonna Perry on 62-08-4188Fiqygudxp RBC Auto Ql (Bld)N/A [facility] TownshipOvalocyte detectionOrdered By: Jonna Perry on 10-57-1469Tfqsnalopy LM Ql (Bld)SlightKettering Health Washington TownshipPlatelet adequacy [Presence] in Blood by Light microscopyOrdered By: Jonna Perry on 51-32-8834Poficlwir LM Ql (Bld)NormalNormMcKitrick Hospital Platelet mean volume Auto (Bld) [Entitic vol]Ordered By: Jonna Perry on 03-08-2023 Platelet mean volume (Bld) [Entitic vol]9.0 fL6.3-10.7FMercy HealthPlatelet morphology finding [Identifier] in BloodOrdered By: Jonna Perry on 60-73-2394Vxpfjwwm morphology finding Nom (Bld)N/AFMercy HealthPlatelet poor plasma international normalized ratio (INR) by coagulation assay (relatOrdered By: Jonna Perry on 05-80-5700YSZ Coag (PPP) [Relative time]1.1 {INR}[facility] TownshipComment on above:INR Therapeutic Range A) Pre- and [...] Auto (Bld) [#/Vol]Ordered By: Jonna Perry on 52-39-8627Fqxtebpca (Bld) [#/Vol]276 10*3/jV971-430OetcinawlKettering Health Washington TownshipPlatelets Large [Presence] in Blood by Light microscopyOrdered By: Jonna Perry on 56-62-3358Zqmjweldr Large LM Ql (Bld)[facility] HospitalPoikilocytosis [Presence] in Blood by Light microscopyOrdered By: Jonna Perry on 99-97-2951Bqorxxszntsube LM Ql (Bld)[facility] HospitalPotassium [Moles/volume] in Serum or PlasmaOrdered By: Jonna Perry on 00-51-8930Skccnqkjo [Moles/Vol]5.1 mmol/L 3.5-5.1FMercy HealthRBC Auto (Bld) [#/Vol]Ordered By: Jonna Perry on 24-00-9881VJA (Bld) [#/Vol]3.56 10*6/uL3.60-5.00[facility] TownshipRB morphologyOrdered By: Jonna Perry on 85-18-8346VQF morphology finding Nom (Bld)N/AFTriHealth Bethesda North Hospitalegmented neutrophils/100 WBC Manual cnt (Bld)Ordered By: Jonna Perry on 64-55-2766Jwgsnwivh neutrophils/100 WBC (Bld)74 %50-70[facility] Hospitalerum or plasma anion gap determinationOrdered By: Jonna Perry on 47-39-0808Fjgpo gap [Moles/Vol]9.0 mmol/L 6.0-15.0[facility] Behavioral Hospitalerum or plasma high density lipoprotein (HDL) cholesterol measurementOrdered By: Jonna Perry on 03-08-2023 Cholesterol in HDL [Mass/Vol]38 mg/hO00-25HdlomzwvyKettering Health Washington Township Comment on above:HDL CHOL ATP-III CLASSIFICATION Cardiovascular RiskHDL > or equal to 60 mg/dL LOWHDL < 40 mg/dL HIGHSerum or plasma total cholesterol/high density lipoprotein (HDL) cholesterol mass ratOrdered By: Jonna Perry on 40-52-8925Onylsmylnxh.total/Cholesterol in HDL [Mass ratio]4.0 {ratio}<5.0 [facility] Hospitalodium [Moles/volume] in Serum or PlasmaOrdered By: Jonna Perry on 05-85-2590Keojbj [Moles/Vol]141 mmol/W288-590AfywluvdbKettering Health Washington TownshipTriglyceride [Mass/volume] in Serum or PlasmaOrdered By: Jonna Perry on 00-99-2662Ggsryndmfprh [Mass/Vol]67 mg/dL0-149[facility] TownshipComment on above:TRIG ATP III CLASSIFICATIONTRIG less than 150 mg/dL NormalTRIG 150-199 mg/dL Borderline highTRIG 200-500 mg/dL High TRIG greater than 500 mg/dL Very highStandard traceable to the Center for Disease Co nrtrol and Prevention (CDC) test method.Urea nitrogen [Mass/volume] in Serum or PlasmaOrdered By: Jonna Perry on 03-93-0336Cskk nitrogen [Mass/Vol]21 mg/dL7-25 [facility] TownshipWBC Auto (Bld) [#/Vol]Ordered By: Jonna Perry on [id number] (Bld) [#/Vol]8.6 10*3/uL3.8-11.6FMercy Health Office Visit (Cardiology)on 41-50-4099Pvjjll-up visitDiagnoses/Problems Assessed Class 1 obesity with body [...] associated with accelerated hypertension, was admitted to [facility], diuresed approximately 14 pounds with diuretics. She [...] negative for complaint. Vitals Vital Signs Recorded: [id number] 10:14AMRecorded: [id number] 10:04AM Owcdxzcq046, RUE, Fjzswjb51 (more content not included)...NormalUH Touchworks Tobacco Screening.on 16-39-3985Dvjax depression screening assessmentNoFerry [facility] Hospital [employer] 250 DO Work Phone: Fall risk assessmenta) No falls within the last year [facility] [employer] 250 DO Work Phone: Tobacco use status CPHSb) [facility] [place] 250 DO Work Phone: CBC AUTO DIFFon [id number] #0.0 103/ulNormal 0.0-0.1Wilson HealthComment on above:Performed By: #### CBC #### [facility] [address] [place] [address] Dr. Jose David ShanksBasophils/100 WBC (Bld)0.5 %Normal0.2-2.0[facility] Comment on above:Performed By: #### CBC #### [facility] [address] [place] [address] Dr. Jose David Devries #0.1 103/ulNormal0.0-0.7The [facility] HospitalComment on above: Performed By: #### CBC #### [facility] [address] [place] [address] Dr. Jose David Vickersosinophils/100 WBC (Bld)1.2 %Normal0.9-7.0The [facility] Comment on above:Performed By: #### CBC #### [facility] [address] [place] [address] Dr. Jose David Vickersrythrocyte distribution width (RBC) [Ratio]13.2 %Igmgec35.0-15.0 Wilson HealthComment on above:Performed By: #### CBC #### [facility] [address] [place] [address] Dr. Jose David ShanksHematocrit (Bld) [Volume fraction]33.9 %Critically low36.0-48.0 Wilson HealthComment on above:Performed By: #### CBC #### [facility] [address] [place] [address] Dr. Jose David ShanksHemoglobin (Bld) [Mass/Vol]11.0 g/dLCritically low12.0-16.0Wilson HealthComment on above:Performed By: #### CBC #### [facility] [address] [place] [address] Dr. Jose David Guerrero #0.03 10e3/ulNormal0.00-0.03The [facility] HospitalComment on above:Performed By: #### CBC #### [facility] [address] [place] [address] Dr. Jose David Guerrero %0.5 %Normal0.0-0.5The [facility] HospitalComment on above: Performed By: #### CBC #### [facility] [address] [place] [address] Dr. Jose David Rolon #0.8 103/ulCritically low1.2-3.8The [facility] Comment on above:Performed By: #### CBC #### [facility] [address] [place] [address] Dr. Jose David Anthonyhocytes/100 WBC (Bld)13.7 %Critically low20.5-60.0The [facility] HospitalComment on above:Performed By: #### CBC #### [facility] [address] [place] [address] Dr. Jose David Donovan DIFF REQNONormalThe [facility] HospitalComment on above: Performed By: #### CBC #### [facility] [address] [place] [address] Dr. Jose David Andino (RBC) [Entitic mass]28.9 myJxxnjp43.7-34.0The [facility] HospitalComment on above:Performed By: #### CBC #### [facility] [address] [place] [address] Dr. Jose David Turner (RBC) [Mass/Vol]32.4 g/pEOyimmn10.9-35.2The [facility] HospitalComment on above:Performed By: #### CBC #### [facility] [address] [place] [address] Dr. Jose David Turner (RBC) [Entitic vol]89.0 dJZtrdev85.0-99.0The [facility] HospitalComment on above:Performed By: #### CBC #### [facility] [address] [place] [address] Dr. Jose David Horton #0.5 103/ulNormal0.3-0.8The [facility] HospitalComment on above:Performed By: #### CBC #### [facility] [address] [place] [address] Dr. Jose David Olivoocytes/100 WBC (Bld)8.2 %Normal1.7-12.0The [facility] Comment on above:Performed By: #### CBC #### [facility] [address] [place] [address] Dr. Jose David Mix #4.3 103/ulNormal1.4-6.5The [facility] HospitalComment on above:Performed By: #### CBC #### [facility] [address] [place] [address] Dr. Jose David Herndonutrophils/100 WBC (Bld)75.9 %Critically high43.0-75.0The [facility] HospitalComment on above:Performed By: #### CBC #### [facility] [address] [place] [address] Dr. Jose David Gonzalez mean volume (Bld) [Entitic vol]10.1 fLNormal9.5-13.5The [facility] HospitalComment on above:Performed By: #### CBC #### [facility] [address] [place] [address] Dr. Jose David ShanksPLT279 103/diBiufgd467-780Bem [facility] HospitalComment on above: Performed By: #### CBC #### [facility] [address] [place] [address] Dr. Jose David BustosC3.81 106/ulCritically low4.20-5.40The [facility] HospitalComment on above:Performed By: #### CBC #### [facility] [address] [place] [address] Dr. Jose David ShanksWBC5.7 103/ulNormal4.0-11.0The [facility] HospitalComment on above: Performed By: #### CBC #### [facility] [address] [place] [address] Dr. Jose David Zhouon 39-18-9073Ovqnqunf [Mass/Vol]180.0 ng/mLNormal 8.0-252.0The [facility] HospitalComment on above:Performed By: #### CBC #### [facility] [address] [place] [address] Dr. Jose David Helm AND TIBCon 03-01-2023% NJAEDLVUSW08.6 %NormalThe [facility] HospitalComment on above:Performed By: #### CBC #### [facility] [address] [address] [address] Jose David Helm [Mass/Vol]61.0 ug/uMNjwsab78.0-170.0The [facility] Comment on above:Performed By: #### CBC #### [facility] [address] [place] [address] Dr. Jose David ShanksTIBC VTCSED374.0 ug/cBZnsssu079.0-450.0The [facility] Comment on above:Performed By: #### CBC #### [facility] [address] [place] [address] Dr. Jose David Villanueva STRESS/REST MULTIon 83-67-5988QW STRESS/REST MULTIPatient: LASHAUN JOAQUIN Exam Date: 03/01/2023 : 1940 Gender:F Ordering : DR NATHAN HATHAWAY D.O. Admission #: [id number] Family : Order #: [id number] CLICK HERE TO VIEW EXAM RADIOLOGY REPORT [...] STUDY: PERFUSION DEFECT: LOCATION: Mid-anterior. Apical anterior. [place]. SIZE: Medium (3-4 segments). SEVERITY: Moderate. TYPE: [...] by: William Dominguez MD on 03/01/2023 at 14:54[facility] HospitalPROF CHEM 8 (BAS METB)on 22-24-8012Tpyil gap [Moles/Vol]8.8 mmol/LNormalWilson HealthComment on above:Performed By: #### LACT #### [facility] [address] [place] [address] Dr. Jose David ShanksCalcium [Mass/Vol]9.0 mg/dLNormal8.5-10.1[facility] Comment on above:Performed By: #### LACT #### [facility] [address] [place] [address] Dr. Jose David ShanksChloride [Moles/Vol]106 mmol/VQiqnvs08-917YcyWilson Health Comment on above:Performed By: #### LACT #### [facility] [address] [place] [address] Dr. Jose David ShanksCO2 [Moles/Vol]31.0 mmol/YMskoaw03.0-32.0[facility] Comment on above:Performed By: #### LACT #### [facility] [address] [place] [address] Dr. Jose David ShanksCreatinine [Mass/Vol]1.18 mg/dLCritically high0.55-1.02Wilson HealthComment on above:Performed By: #### LACT #### [facility] [address] [place] [address] Dr. Main ChangEGFR-AF EJZSKGUE51 mL/min/1.44f3Xseawagwal low>=60The [facility] HospitalComment on above:Performed By: #### LACT #### [facility] [address] [address] [address] Jose David VickersGFR-NON AF OZMYZQOL42 mL/min/1.17v3Sxlmynlfhb low>=60The [facility] HospitalComment on above:Performed By: #### LACT #### [facility] [address] [address] [address] Jose David ShanksGlucose [Mass/Vol]98 mg/lZCyhznv74-189Jja [facility] Comment on above:Performed By: #### LACT #### [facility] [address] [place] [address] Dr. Jose David ShanksPotassium [Moles/Vol]4.8 mmol/LNormal3.5-5.1The [facility] Comment on above:Performed By: #### LACT #### [facility] [address] [address] [address] Jose David ShanksSodium [Moles/Vol]141 mmol/DKpsxbv686-001CocWilson Health Comment on above:Performed By: #### LACT #### [facility] [address] [place] [address] Dr. Jose David ShanksUrea nitrogen [Mass/Vol]16.0 mg/dLNormal7.0-18.0The [facility] HospitalComment on above:Performed By: #### LACT #### [facility] [address] [place] [address] Dr. Jose David Rubio nitrogen/Creatinine [Mass ratio]13.6 mg/mgNormalThe [facility] HospitalComment on above:Performed By: #### LACT #### [facility] [address] [address] [address] Jose David ShanksRETICULOCYTEon 07-26-6277AUAPT9.51 %Normal0.60-3.10The [facility] HospitalComment on above:Performed By: #### CBC #### [facility] [address] [place] [address] Dr. Jose David Mohan B12 AND FOLATEon 64-14-6764Kggcegyaf (Vitamin B12) [Mass/Vol] 1406.0 pg/mLCritically oxak633.0-986.0The [facility] HospitalComment on above: Performed By: #### CBC #### [facility] [address] [place] [address] Dr. Jose David ShanksFOLATE19.00 ng/mLNormal8.60-58.90The [facility] HospitalComment on above:Performed By: #### CBC #### [facility] [address] [place] [address] Dr. Jose David AllenC AUTO DIFFon 61-11-1698DYXL #0.0 103/ulNormal0.0-0.1The [facility] HospitalComment on above:Performed By: #### CBC #### [facility] [address] [place] [address] Dr. Jose David ShanksBasophils/100 WBC (Bld)0.6 %Normal0.2-2.0[facility] Comment on above:Performed By: #### CBC #### [facility] [address] [place] [address] Dr. Jose David Devries #0.1 103/ulNormal0.0-0.7The [facility] HospitalComment on above: Performed By: #### CBC #### [facility] [address] [place] [address] Dr. Jose David Vickersosinophils/100 WBC (Bld)2.7 %Normal0.9-7.0The [facility] Comment on above:Performed By: #### CBC #### [facility] [address] [place] [address] Dr. Jose David Vickersrythrocyte distribution width (RBC) [Ratio]13.5 %Todmys27.0-15.0 The [facility] HospitalComment on above:Performed By: #### CBC #### [facility] [address] [place] [address] Dr. Jose David ShanksHematocrit (Bld) [Volume fraction]30.0 %Critically low36.0-48.0 The [facility] HospitalComment on above:Performed By: #### CBC #### [facility] [address] [address] [address] Jose David ShanksHemoglobin (Bld) [Mass/Vol]10.0 g/dLCritically low12.0-16.0The [facility] HospitalComment on above:Performed By: #### CBC #### [facility] [address] [address] [address] Jose David Guerrero #0.02 10e3/ulNormal0.00-0.03The [facility] HospitalComment on above:Performed By: #### CBC #### [facility] [address] [address] [address] Jose David Guerrero %0.4 %Normal0.0-0.5The [facility] HospitalComment on above: Performed By: #### CBC #### [facility] [address] [place] [address] Dr. Jose David Rolon #0.9 103/ulCritically low1.2-3.8The [facility] Comment on above:Performed By: #### CBC #### [facility] [address] [address] [address] Jose David Anthonyhocytes/100 WBC (Bld)19.3 %Critically low20.5-60.0The [facility] HospitalComment on above:Performed By: #### CBC #### [facility] [address] [address] [address] Jose David MazariegosUAL DIFF REQNONormalThe [facility] HospitalComment on above: Performed By: #### CBC #### [facility] [address] [address] [address] Jose David Turner (RBC) [Entitic mass]29.3 ljWfcjji84.7-34.0The [facility] HospitalComment on above:Performed By: #### CBC #### [facility] [address] [address] [address] Jose David Turner (RBC) [Mass/Vol]33.3 g/fQHxycji54.9-35.2The [facility] Hospitalment on above:Performed By: #### CBC #### [facility] [address] [address] [address] Jose David TurnerV (RBC) [Entitic vol]88.0 lJCgnhyh94.0-99.0The [facility] HospitalComment on above:Performed By: #### CBC #### [facility] [address] [address] [address] Jose David Horton #0.4 103/ulNormal0.3-0.8The [facility] HospitalComment on above:Performed By: #### CBC #### [facility] [address] [place] [address] Dr. Jose David Olivoocytes/100 WBC (Bld)8.3 %Normal1.7-12.0The [facility] on above:Performed By: #### CBC #### [facility] [address] [place] [address] Dr. Jose David Mix #3.3 103/ulNormal1.4-6.5The [facility] on above:Performed By: #### CBC #### [facility] [address] [place] [address] Dr. Jose David Herndonutrophils/100 WBC (Bld)68.7 %Canwtt77.0-75.0The [facility] on above:Performed By: #### CBC #### [facility] [address] [place] [address] Dr. Jose David Carmichaellet mean volume (Bld) [Entitic vol]9.9 fLNormal9.5-13.5The [facility] Hospitalment on above:Performed By: #### CBC #### [facility] [address] [place] [address] Dr. Jose David ShanksPLT259 103/asYrhgpl769-729Dkh [facility] Hospitalment on above: Performed By: #### CBC #### [facility] [address] [place] [address] Dr. Jose David ShanksRBC3.41 106/ulCritically low4.20-5.40The [facility] HospitalComment on above:Performed By: #### CBC #### [facility] [address] [address] [address] Jose David ShanksWBC4.8 103/ulNormal4.0-11.0The [facility] HospitalComment on above: Performed By: #### CBC #### [facility] [address] [place] [address] Dr. Jose David ShanksPROF CHEM 8 (BAS METB)on 38-19-6166Yoejd gap [Moles/Vol]11.7 mmol/LNormalThe [facility] HospitalComment on above:Performed By: #### LACT #### [facility] [address] [place] [address] Dr. Jose David ShanksCalcium [Mass/Vol]8.6 mg/dLNormal8.5-10.1The [facility] Comment on above:Performed By: #### LACT #### [facility] [address] [place] [address] Dr. Jose David ShanksChloride [Moles/Vol]107 mmol/XGnlwuw37-041Jfo [facility] Comment on above:Performed By: #### LACT #### [facility] [address] [place] [address] Dr. Jose David ShanksCO2 [Moles/Vol]30.9 mmol/XHcouui94.0-32.0[facility] Comment on above:Performed By: #### LACT #### [facility] [address] [place] [address] Dr. Jose David ShanksCreatinine [Mass/Vol]1.04 mg/dLCritically high0.55-1.02The [facility] HospitalComment on above:Performed By: #### LACT #### [facility] [address] [place] [address] Dr. Jose David VickersGFR-AF TUVALUAN>60Normal>=60The [facility] HospitalComment on above:Performed By: #### LACT #### [facility] [address] [place] [address] Dr. Jose David VickersGFR-NON AF XVDTIPUF96 mL/min/1.93k9Fxvvupatzm low>=60The [facility] HospitalComment on above:Performed By: #### LACT #### [facility] [address] [address] [address] Jose David ShanksGlucose [Mass/Vol]97 mg/iFEvqqna29-576Oxt [facility] Comment on above:Performed By: #### LACT #### [facility] [address] [address] [address] Jose David ShanksPotassium [Moles/Vol]3.6 mmol/LNormal3.5-5.1[facility] Comment on above:Performed By: #### LACT #### [facility] [address] [place] [address] Dr. Jose David ShanksSodium [Moles/Vol]146 mmol/LCritically guzf889-950Lgp [facility] HospitalComment on above:Performed By: #### LACT #### [facility] [address] [place] [address] Dr. Jose David ShanksUrea nitrogen [Mass/Vol]17.0 mg/dLNormal7.0-18.0The [facility] HospitalComment on above:Performed By: #### LACT #### [facility] [address] [place] [address] Dr. Jose David Rubio nitrogen/Creatinine [Mass ratio]16.3 mg/mgNormalThe [facility] HospitalComment on above:Performed By: #### LACT #### [facility] [address] [place] [address] Dr. Jose David ShanksXR CHEST 2 Von 74-21-2221JT CHEST 2 VHISTORY: 78-ihcf-fdpamq referred for shortness of breath. COMPARISON: 02-08-2023. [...] Electronically authenticated by: EDWARD MENA Date: 2023-02-09 15:56[facility]'s HospitalBNPon 50-15-9445Qsrbdzqguul peptide B (Bld) [Mass/Vol]1007.0 pg/mLNormal<=1,800.0Wilson HealthComment on above:Performed By: #### BNP #### [facility] [address] [place] [address] Dr. Jose David Tian TALI 3-6on 02-05-6306IO [Catalytic activity/Vol]29 U/L Ehuqsb06-898FvgWilson HealthComment on above:Performed By: #### CMREP #### [facility] [address] [place] [address] Dr. Jose David Jacinto.MB [Mass/Vol]0.90 ng/mLNormal<=3.60[facility] Comment on above:Performed By: #### CMREP #### [facility] [address] [place] [address] Dr. Jose David MaeTROP69.4 pg/mLCritically high4.0-51.3TMartin [facility] Hospital Comment on above:Result Comment: CUT-OFF POINTS HAVE BEEN ESTABLISHED BASED ON THE FOURTH UNIVERSAL DEFINITIONS OF MYOCARDIAL INFARCTION. THE UPPER REFERENCE LIMIT (URL) OF TROPONIN, DEFINED THE 99TH PERCENTILE OF cTnI DISTRIBUTION IN A REFERENCE POPULATION, HAS BEEN CONFIRMED THE DECISION THRESHOLD FOR [place] DIAGNOSIS.Performed By: #### CMREP #### [facility] [address] [place] [address] Dr. Jose David Jacinto [Catalytic activity/Vol]23 U/LCritically nyd98-223Oks [facility] HospitalComment on above:Performed By: #### CMREP #### [facility] [address] [place] [address] Dr. Jose David Jacinto.MB [Mass/Vol]ng/mLNormal<=3.60The [facility] HospitalComment on above:Performed By: #### CMREP #### [facility] [address] [place] [address] Dr. Jose David JamesOP72.0 pg/mLCritically high4.0-51.3TMartin Memorial Hospital Comment on above:Result Comment: CUT-OFF POINTS HAVE BEEN ESTABLISHED BASED ON THE FOURTH UNIVERSAL DEFINITIONS OF MYOCARDIAL INFARCTION. THE UPPER REFERENCE LIMIT (URL) OF TROPONIN, DEFINED THE 99TH PERCENTILE OF cTnI DISTRIBUTION IN A REFERENCE POPULATION, HAS BEEN CONFIRMED THE DECISION THRESHOLD FOR [place] DIAGNOSIS.Performed By: #### CMREP #### [facility] [address] [place] [address] Dr. Jose David Tian TALI ADMITon 71-39-8940XB [Catalytic activity/Vol]31 U/L Ijybqv38-113Roc [facility] HospitalComment on above:Performed By: #### NATALIIADM, BMP #### [facility] [address] [place] [address] Dr. Jose David Jacinto.MB [Mass/Vol]ng/mLNormal<=3.60The [facility] HospitalComment on above:Performed By: #### CMADM, BMP #### [facility] [address] [place] [address] Dr. Jose David JamesOP26.3 pg/mLNormal4.0-51.3The [facility] HospitalComment on above:Result Comment: CUT-OFF POINTS HAVE BEEN ESTABLISHED BASED ON THE FOURTH UNIVERSAL DEFINITIONS OF MYOCARDIAL INFARCTION. THE UPPER REFERENCE LIMIT (URL) OF TROPONIN, DEFINED THE 99TH PERCENTILE OF cTnI DISTRIBUTION IN A REFERENCE POPULATION, HAS BEEN CONFIRMED THE DECISION THRESHOLD FOR [place] DIAGNOSIS.Performed By: #### CMADM, BMP #### [facility] [address] [place] [address] Dr. Jose David RenO52 ng/mLNormal9-82The [facility] HospitalComment on above: Performed By: #### CMADM, BMP #### [facility] [address] [place] [address] Dr. Jose David Viera AUTO DIFFon 15-82-6790SESH #0.0 103/ulNormal0.0-0.1The [facility] HospitalComment on above:Performed By: #### LACT #### [facility] [address] [place] [address] Dr. Jose David ShanksBasophils/100 WBC (Bld)0.3 %Normal0.2-2.0The [facility] Comment on above:Performed By: #### LACT #### [facility] [address] [place] [address] Dr. Jose David Devries #0.1 103/ulNormal0.0-0.7The [facility] HospitalComment on above: Performed By: #### LACT #### [facility] [address] [place] [address] Dr. Jose David Vickersosinophils/100 WBC (Bld)0.5 %Critically low0.9-7.0The [facility] HospitalComment on above:Performed By: #### LACT #### [facility] [address] [place] [address] Dr. Jose David Vickersrythrocyte distribution width (RBC) [Ratio]13.4 %Qkumqv98.0-15.0 The [facility] HospitalComment on above:Performed By: #### LACT #### [facility] [address] [place] [address] Dr. Jose David ShanksHematocrit (Bld) [Volume fraction]33.0 %Critically low36.0-48.0 The [facility] HospitalComment on above:Performed By: #### LACT #### [facility] [address] [place] [address] Dr. Jose David ShanksHemoglobin (Bld) [Mass/Vol]11.1 g/dLCritically low12.0-16.0The [facility] HospitalComment on above:Performed By: #### LACT #### [facility] [address] [place] [address] Dr. Jose David Guerrero #0.06 10e3/ulCritically high0.00-0.03The [facility] Comment on above:Performed By: #### LACT #### [facility] [address] [place] [address] Dr. Jose David Guerrero %0.5 %Normal0.0-0.5The [facility] HospitalComment on above: Performed By: #### LACT #### [facility] [address] [address] [address] Jose David Rolon #0.8 103/ulCritically low1.2-3.8The [facility] Comment on above:Performed By: #### LACT #### [facility] [address] [place] [address] Dr. Jose David Allenmphocytes/100 WBC (Bld)7.0 %Critically low20.5-60.0The [facility] HospitalComment on above:Performed By: #### LACT #### [facility] [address] [place] [address] Dr. Jose David Donovan DIFF REQNONormalThe [facility] HospitalComment on above: Performed By: #### LACT #### [facility] [address] [place] [address] Dr. Jose David Turner (RBC) [Entitic mass]29.6 tbKoqnnk34.7-34.0The [facility] HospitalComment on above:Performed By: #### LACT #### [facility] [address] [place] [address] Dr. Jose David Turner (RBC) [Mass/Vol]33.6 g/mNWubhmg88.9-35.2The [facility] HospitalComment on above:Performed By: #### LACT #### [facility] [address] [place] [address] Dr. Jose David Turner (RBC) [Entitic vol]88.0 wCOftmwx46.0-99.0The [facility] HospitalComment on above:Performed By: #### LACT #### [facility] [address] [place] [address] Dr. Jose David Horton #0.6 103/ulNormal0.3-0.8The [facility] HospitalComment on above:Performed By: #### LACT #### [facility] [address] [place] [address] Dr. Jose David Olivoocytes/100 WBC (Bld)5.4 %Normal1.7-12.0The [facility] Comment on above:Performed By: #### LACT #### [facility] [address] [address] [address] Jose David Mix #9.9 103/ulCritically high1.4-6.5The [facility] Comment on above:Performed By: #### LACT #### [facility] [address] [place] [address] Dr. Jose David Herndonutrophils/100 WBC (Bld)86.3 %Critically high43.0-75.0The [facility] HospitalComment on above:Performed By: #### LACT #### [facility] [address] [place] [address] Dr. Jose David ShanksPlatelet mean volume (Bld) [Entitic vol]10.1 fLNormal9.5-13.5The [facility] HospitalComment on above:Performed By: #### LACT #### [facility] [address] [place] [address] Dr. Jose David ShanksPLT333 103/jfMmvqze098-085Fex [facility] HospitalComment on above: Performed By: #### LACT #### [facility] [address] [place] [address] Dr. Jose David ShanksRBC3.75 106/ulCritically low4.20-5.40The [facility] HospitalComment on above:Performed By: #### LACT #### [facility] [address] [place] [address] Dr. Jose David ShanksWBC11.5 103/ulCritically high4.0-11.0The [facility] HospitalComment on above:Performed By: #### LACT #### [facility] [address] [place] [address] Dr. Jose David Scott BLOODon 53-02-4722Dssjkdudobr examination of blood, cultureCulture Observations: NO GROWTH AT 5 DAYS.NormalThe [facility] HospitalComment on above:Performed By: #### LACT #### [facility] [address] [place] [address] Dr. Jose David ShanksMicroscopic examination of blood, cultureCulture Observations: NO GROWTH AT 5 DAYS.NormalThe [facility] HospitalComment on above:Performed By: #### LACT #### [facility] [address] [address] [address] Jose David PinoCARDIO M/2D COMPLETEon [id number] M/2D COMPLETE Patient: LASHAUN JOAQUIN Exam Date: 02/08/2023 : 1940 Gender:F Ordering : DR ALLI SCOTT . Admission #: [id number] Family : DR NATHAN HATHAWAY D.O. Order #: [id number] CLICK HERE TO VIEW EXAM ECHOCARDIOGRAM REPORT [...] by: Jaquan Payne M.D. on 02/09/2023 at 19:11[facility] [id number] [Moles/Vol]1.4 mmol/LNormal 0.4-2.0The [facility] HospitalComment on above:Performed By: #### LACT #### [facility] [address] [address] [address] Jose David ShanksLactate [Moles/Vol]1.4 mmol/LNormal0.4-2.0The [facility] Comment on above:Performed By: #### LACT #### [facility] [address] [address] [address] Jose David ShanksPROF CHEM 8 (BAS METB)on 81-71-6792Qghyr gap [Moles/Vol]11.9 mmol/LNormalThe [facility] HospitalComment on above:Performed By: #### CMADM, BMP #### [facility] [address] [place] [address] Dr. Jose David ShanksCalcium [Mass/Vol]9.0 mg/dLNormal8.5-10.1The [facility] Comment on above:Performed By: #### CMADM, BMP #### [facility] [address] [address] [address] Jose David ShanksChloride [Moles/Vol]105 mmol/XFismus97-967ZhpWilson Health Comment on above:Performed By: #### CMADM, BMP #### [facility] [address] [address] [address] Jose David ShanksCO2 [Moles/Vol]28.2 mmol/UGhzeca97.0-32.0The [facility] Comment on above:Performed By: #### CMADM, BMP #### [facility] [address] [place] [address] Dr. Jose David ShanksCreatinine [Mass/Vol]0.99 mg/dLNormal0.55-1.02The [facility] HospitalComment on above:Performed By: #### CMADM, BMP #### [facility] [address] [address] [address] Jose David VickersGFR-AF TUVALUAN>60Normal>=60The [facility] HospitalComment on above:Performed By: #### CMADM, BMP #### [facility] [address] [address] [address] Jose David VickersGFR-NON AF CTKCQDYZ13 mL/min/1.96w7Miuqgftdgz low>=60The [facility] HospitalComment on above:Performed By: #### CMADM, BMP #### [facility] [address] [address] [address] Jose David ShanksGlucose [Mass/Vol]123 mg/dLCritically zwyx26-901Ved [facility] HospitalComment on above:Performed By: #### CMADM, BMP #### [facility] [address] [address] [address] Jose David ShanksPotassium [Moles/Vol]4.1 mmol/LNormal3.5-5.1The [facility] Comment on above:Performed By: #### CMADM, BMP #### [facility] [address] [address] [address] Jose David ShanksSodium [Moles/Vol]141 mmol/IBflnih396-877Lws [facility] Comment on above:Performed By: #### CMADM, BMP #### [facility] [address] [address] [address] Jose David ShanksUrea nitrogen [Mass/Vol]14.0 mg/dLNormal7.0-18.0The [facility] HospitalComment on above:Performed By: #### CMADM, BMP #### [facility] [address] [address] [address] Jose David Rubio nitrogen/Creatinine [Mass ratio]14.1 mg/mgNormalThe [facility] HospitalComment on above:Performed By: #### CMADM, BMP #### [facility] [address] [place] [address] Dr. Jose David ShanksRESPIRATORY PANEL PLUSon 70-47-4401QikehievbnDcp detectedNormal NOT DETECTEDThe [facility] HospitalComment on above:Performed By: #### RSPLUS #### [facility] [address] [place] [address] Dr. Yilan ChangB. ParapertusisNot detectedNormalNOT DETECTEDThe [facility] HospitalComment on above:Performed By: #### RSPLUS #### [facility] [address] [address] [address] Jose David Mccoy. PertussisNot detectedNormalNOT DETECTEDThe [facility] Comment on above:Performed By: #### RSPLUS #### [facility] [address] [address] [address] Jose David ShanksChlamydia PneumoniaeNot detectedNormalNOT DETECTEDThe [facility] HospitalComment on above:Performed By: #### RSPLUS #### [facility] [address] [address] [address] Jose David ShanksCoronavirus 229ENot detectedNormalNOT DETECTEDThe [facility] HospitalComment on above:Performed By: #### RSPLUS #### [facility] [address] [place] [address] Dr. Jose David ShanksCoronavirus VNQ6Jaz detectedNormalNOT DETECTEDThe [facility] HospitalComment on above:Performed By: #### RSPLUS #### [facility] [address] [address] [address] Jose David Sesayronavirus KB66Jnu detectedNormalNOT DETECTEDThe [facility] HospitalComment on above:Performed By: #### RSPLUS #### [facility] [address] [address] [address] Jose David ShanksCoronavirus LT34Lzx detectedNormalNOT DETECTEDThe [facility] HospitalComment on above:Performed By: #### RSPLUS #### [facility] [address] [address] [address] Jose David Rangel A H1Not detectedNormalNOT DETECTEDThe [facility] Comment on above:Performed By: #### RSPLUS #### [facility] [address] [address] [address] Jose David Rangel A H1 2009Not detectedNormalNOT DETECTEDThe [facility] HospitalComment on above:Performed By: #### RSPLUS #### [facility] [address] [address] [address] Jose David Rangel A H3Not detectedNormalNOT DETECTEDThe [facility] Comment on above:Performed By: #### RSPLUS #### [facility] [address] [address] [address] Jose David Rangel BNot detectedNormalNOT DETECTEDThe [facility] Comment on above:Performed By: #### RSPLUS #### [facility] [address] [address] [address] Jose David AbdullahineumovirusNot detectedNormalNOT DETECTEDThe [facility] HospitalComment on above:Performed By: #### RSPLUS #### [facility] [address] [address] [address] Jose David Ha. PneumoniaeNot detectedNormalNOT DETECTEDThe [facility] HospitalComment on above:Performed By: #### RSPLUS #### [facility] [address] [address] [address] Jose David Del Toro 1Not detectedNormalNOT DETECTEDThe [facility] HospitalComment on above:Performed By: #### RSPLUS #### [facility] [address] [address] [address] Jose David Del Toro 2Not detectedNormalNOT DETECTEDThe [facility] HospitalComcorewell health [facility] on above:Performed By: #### RSPLUS #### [facility] [address] [address] [address] Jose David Del Toro 3Not detectedNormalNOT DETECTEDThe [facility] HospitalComment on above:Performed By: #### RSPLUS #### [facility] [address] [address] [address] Jose David Del Toro 4Not detectedNormalNOT DETECTEDThe [facility] HospitalComcorewell health big [facility] hospital on above:Performed By: #### RSPLUS #### [facility] [address] [address] [address] Jose David ShanksRhino/EnterovirusNot detectedNormalNOT DETECTEDThe [facility] HospitalComcorewell health [facility] hospital on above:Performed By: #### RSPLUS #### [facility] [address] [address] [address] Jose David Ruff Header 1RESPIRATORY PANEL: [facility]ESAk[facility] Comment on above:Performed By: #### RSPLUS #### [facility] [address] [place] [address] Dr. Jose David Ruff Header 2RESPIRATORY PANEL: BACTERIANoOhio Valley Surgical HospitalComment on above:Performed By: #### RSPLUS #### [facility] [address] [address] [address] Jose David GusmanVNot detectedNormalNOT DETECTEDThe [facility] HospitalComment on above:Performed By: #### RSPLUS #### [facility] [address] [place] [address] Dr. Jose David Gonzalez-CoV-2 (COVID-19) RNA ZABRINA+probe Ql (Unsp spec)Not detected NormalNOT DETECTEDThe [facility] HospitalComment on above:Performed By: #### RSPLUS #### [facility] [address] [place] [address] Dr. Jose David ShanksXR CHEST 1 Von [id number] CHEST 1 VEXAM: XR CHEST 1 V [...] Electronically authenticated by: Petra SAHU Date: 2023-02-08 05:21[facility] HospitalMG [facility] SCRE[facility] 3D SCARLETT CADon [id number] MAMM SCREEN 3D SCARLETT CAD Patient: LASHAUN JOAQUIN Exam Date: 01/08/2023 : 1940 Gender:F Ordering : DR NATHAN HATHAWAY D.OManuel Admission #: [id number] Family : Order #: [id number] CLICK HERE TO VIEW EXAM RADIOLOGY REPORT [...] at age 62. LOCATION: [facility] BREAST COMPOSITION: Extremely dense, which lowers [...] by: William Dominguez MD on 01/08/2023 at 11:24[facility] ST HEAD_NECKon [id number] HEAD_NECKEXAM: [facility] HEAD_NECK HISTORY: Localized enlarged lymph nodes COMPARISON: [...] Electronically authenticated by: WILLIAM DOMINGUEZ Date: 2022-09-11 17:07[facility] Abdomen and Pelvis W contrast Rivka 73-01-5666STZWFWYRDE: 1. Stable CT of the abdomen and [...] any questions regarding this interpretation, please call [phone]. If you are unable to reach us at the number above, please feel free to contact [facility] at [phone].DIVISION OF RADIOLOGY* * *Final Report* * * [...] chest CT performed will be reported separately. Fingerprint Technician (topogram) images: No additional findings. DIVISION OF RADIOLOGYProvider, [facility] [place] - 08/28/[facility]22 * * *Final Report* * [...] chest CT performed will be reported separately. Fingerprint Technician (topogram) images: No additional findings. IMPRESSION [...] any questions regarding this interpretation, please call [phone]. If you are unable to reach us at the number above, please feel free to contact [facility] eRadiology at [phone]. [facility] Abdomen and Pelvis W contrast IVOrdered By: [facility] Provider on [id number] ClinicCT Chest W contrast Rivka [id number]: 1. Interval resolution of previously described right [...] any questions regarding this interpretation, please call [phone]. If you are unable to reach us at the number above, please feel free to contact [facility] eRadiology at [phone].DIVISION OF RADIOLOGY* * *Final Report* * * [...] was performed concurrently and is reported separately. Fingerprint Technician (topogram) images: No additional findings. DIVISION OF RADIOLOGYProvider, [facility] [place] - 08/28/2022 * * *Final Report* * [...] was performed concurrently and is reported separately. Fingerprint Technician (topogram) images: No additional findings. IMPRESSION [...] any questions regarding this interpretation, please call [phone]. If you are unable to reach us at the number above, please feel free to contact [facility] eRadiology at [phone]. [facility] HospitalNo Panel Informationon 50-43-6410Cbunhgpqp Study observation (narrative)[facility] HospitalCovid-19 PCR (CVDTBH)on 05-04-2022 SARS-CoV-2 (COVID-19) RNA ZABRINA+probe Ql (Unsp spec)DetectedCritically abnormalNOT DETECTEDThe [facility] HospitalComment on above:Result Comment: This test is not yet approved or cleared by the [place] FDA. When there are no FDA-approved or cleared tests available, and other criteria are met, FDA can make tests available under an emergency access mechanism called an Emergency Use Authorization (EUA). The EUA for this test is supported by the Sales Force Administrator of Health and Human Service's (HHS's) declaration [...] longer be used).Performed By: #### CVDTBH #### [facility] [address] [place] [address] Dr. Jose David Shanks Vital Signs Date TimeVital SignValuePerforming KdebdxqrrXgojbmwe50-54-5855 10:44-0400Body lokrtp634.02 cmBenjamin Ball DO Work Phone: [phone])[address] [place], [place] 7756310-07-2025 10:44-0400 Body mass index (BMI) [Ratio]34.5 kg/d5Qvkmtbrc Ball DO Work Phone: [phone])[address] [place], [place] [address]756310-07-2025 10:44-0400 Body fsnqjukqqvr15.6 [degF]Nathan Ball DO Work Phone: 1(419)[address] [place], [place] [address]756310-07-2025 10:44-0400 Body mcgulw44.45 kgBenjamin Ball DO Work Phone: 1(419)[address] [place], [place] [address]10-07-2025 10:44-0400 Diastolic blood ufzhgyme29 mm[Hg]Nathan Ball DO Work Phone: [phone])[address] [place], [place] [address]10-07-2025 10:44-0400 Heart rate69 /minBenjamin Ball DO Work Phone: [phone])[address] [place], [place] [address]10-07-2025 10:44-0400 SaO2% (BldA) [Mass fraction]96 %Nathan Ball DO Work Phone: 1(419)[address] [place], [place] [address]6310-07-2025 10:44-0400 Systolic blood doynxzyb240 mm[Hg]Nathan Ball DO Work Phone: 1(419)[address] [place], [place] 7756309-23-2025 15:53-0400 Body pgsmqy088.37 cmBenjamin Ball DO Work Phone: [phone])[address] [place], [place] 7756309-23-2025 15:53-0400 Body mass index (BMI) [Ratio]31.9 kg/k1Gspnulyx Ball DO Work Phone: 1(419)[address] [place], [place] 7756309-23-2025 15:53-0400 Body vijusf19.45 kgBenjamin Ball DO Work Phone: [phone])[address] [place], [place] 7756309-23-2025 15:53-0400 Diastolic blood ffryurwy27 mm[Hg]Nathan Ball DO Work Phone: [facility]09-23-2025 15:53-0400 Diastolic blood mm[Hg]Nathan Ball DO Work Phone: [facility]09-23-2025 15:53-0400 Heart rate76 /minBenjamin Ball DO Work Phone: [facility]09-23-2025 15:53-0400 Respiratory rate12 /minBenjamin Ball DO Work Phone: [facility]09-23-2025 15:53-0400 Systolic blood mm[Hg]Nathan Ball DO Work Phone: [facility]09-23-2025 15:53-0400 Systolic blood xvnsqgbi689 mm[Hg]Nathan Ball DO Work Phone: [facility]09-10-2025 10:09-0400 Diastolic blood fsirervf02 mm[Hg]Paolo Casillas APRN.[employer]ED [employer]ING OFFICER Work Phone: [facility] HospitalComment on above:recheck BP [facility] 07-08-2025 10:09-0400Systolic blood sbpzfziv389 mm[Hg]Paolo Casillas APRN.[employer]ED [employer]ING OFFICER Work Phone: [facility] HospitalComment on above:recheck BP [facility] 07-08-2025 10:01-0400Body .4 cmPaolo Casillas APRN.M[employer]ED [employer] COMMANDING OFFICER Work Phone: [facility]09-10-2025 10:01-0400Body mass index (BMI) [Ratio]33.15 kg/a1RjyjgPaolo Casillas APRN.[employer]ED [employer] COMMANDING OFFICER Work Phone: [facility]09-10-2025 10:01-0400Body temperature 96.8 [degF]Paolo Casillas APRN.[employer]ED [employer] COMMANDING OFFICER Work Phone: [facility]09-10-2025 10:01-0400Body zyncpa70.8 kgPaolo Casillas APRN.M[employer]ED [employer] COMMANDING OFFICER Work Phone: [facility]09-10-2025 10:01-0400Heart rate66 /min Paolo Casillas BOTTLING ROOM WORKER.M[employer]ED [employer] COMMANDING OFFICER Work Phone: [facility]09-10-2025 10:01-0400Respiratory rate 18 /minPaolo Casillas BOTTLING ROOM WORKER.M[employer]ED [employer] COMMANDING OFFICER Work Phone: [facility]09-10-2025 10:01-1675OaS6% (BldA) [Mass fraction]95 %Paolo Casillas BOTTLING ROOM WORKER.M[employer]ED [employer] COMMANDING OFFICER Work Phone: [facility]08-22-2025 09:31-0400Body jyoqok255.37 cmBenjamin Ball DO Work Phone: [facility]08-22-2025 09:31-0400 Body mass index (BMI) [Ratio]32.4 kg/i9Ukkfcafn Ball DO Work Phone: [phone]08-22-2025 09:31-0400 Body tdpyjj55.81 kgBenjamin Ball DO Work Phone: [phone]08-22-2025 09:31-0400 Diastolic blood tuoruzhi49 mm[Hg]Nathan Ball DO Work Phone: [phone]08-22-2025 09:31-0400 Heart rate62 /minBenjamin Ball DO Work Phone: [phone]08-22-2025 09:31-0400 Respiratory rate14 /minBenjamin Ball DO Work Phone: 1(787)977-[address] [place], [place] 0575908-22-2025 09:31-0400 SaO2% (BldA) [Mass fraction]96 %Nathan Ball DO Work Phone: [phone]08-22-2025 09:31-0400 Systolic blood ewwvmlvb621 mm[Hg]Nathan Ball DO Work Phone: [phone]07-22-2025 15:33-0400 Body ycypcr683.37 cmBenjamin Ball DO Work Phone: 1(419)[address] [place], [place] 7756307-22-2025 15:33-0400 Body mass index (BMI) [Ratio]31.8 kg/e4Bgzztttg Ball DO Work Phone: 1419)[address] [place], [place] 7756307-22-2025 15:33-0400 Body .13 kgBenjamin Ball DO Work Phone: 1419)[address] [place], [place] 7756307-22-2025 15:33-0400 Diastolic blood bzniezoz88 mm[Hg]Nathan Ball DO Work Phone: 1419)[address] [place], [place] 7756307-22-2025 15:33-0400 Heart rate67 /minBenjamin Ball DO Work Phone: 1419)[address] [place], [place] 7756307-22-2025 15:33-0400 Respiratory rate14 /minBenjamin Ball DO Work Phone: [phone])[address] [place], [place] 7756307-22-2025 15:33-0400 SaO2% (BldA) [Mass fraction]96 %Nathan Ball DO Work Phone: 1419)[address] [place], [place] 7756307-22-2025 15:33-0400 Systolic blood mnmqawjj395 mm[Hg]Nathan Ball DO Work Phone: 1(878)[address] [place], [place] 7756305-22-2025 11:22-0400 Body bmdayh288.37 cmBenjamin Ball DO Work Phone: 1(187)[address] [place], [place] 7756305-22-2025 11:22-0400 Body mass index (BMI) [Ratio]31.6 kg/h2Btjzmokf Ball DO Work Phone: 1419)[address] [place], [place] 7756305-22-2025 11:22-0400 Body agnqkc86.54 kgBenjamin Ball DO Work Phone: 1419)[address] [place], [place] 7756305-22-2025 11:22-0400 Diastolic blood rwzqltor54 mm[Hg]Nathan Ball DO Work Phone: 1(645)[address] [place], [place] [address]305-22-2025 11:22-0400 Heart rate66 /minBenjamin Ball DO Work Phone: [facility]05-22-2025 11:22-0400 Respiratory rate12 /minBenjamin Ball DO Work Phone: [facility]05-22-2025 11:22-0400 SaO2% (BldA) [Mass fraction]97 %Nathan Ball DO Work Phone: [facility]05-22-2025 11:22-0400 Systolic blood xshxnkju414 mm[Hg]Nathan Ball DO Work Phone: [facility]05-20-2025 10:42-0400 Body rkjjux277.[address]05-20-2025 10:42-0400 Body mass index (BMI) [Ratio]33.28 kg/m[address] 03-17-2025 10:42-0400Body .[address] 03-17-2025 10:42-0400Diastolic blood dogrmsix41 mm[Hg][address]05-20-2025 10:42-0400Systolic blood osiwkzwe217 mm[Hg][address]05-16-2025 13:25-0400Body xfwtye046.37 cm Nathan Ball DO Work Phone: [facility]05-16-2025 13:25-0400 Body mass index (BMI) [Ratio]33 kg/f2Hyzhtkgh Ball DO Work Phone: [facility]05-16-2025 13:25-0400 Body .28 kgBenjamin Ball DO Work Phone: [facility]05-16-2025 13:25-0400 Diastolic blood piqgzaic79 mm[Hg]Nathan Ball DO Work Phone: [facility]05-16-2025 13:25-0400 Heart rate90 /minBenjamin Ball DO Work Phone: [facility]05-16-2025 13:25-0400 Respiratory rate12 /minBenjamin Ball DO Work Phone: [phone]05-16-2025 13:25-0400 Systolic blood khgomrtb012 mm[Hg]Nathan Ball DO Work Phone: 1(665)097-[address] [place], [place] 0575904-30-2025 08:46-0400 Body ibcyrw890.1 cmReyna Esparza MD Work Phone: 1(943)[address] [place], [place] [address]53[facility] HospitalFjxqazgtbg02-73-0019 08:46-0400Body mass index (BMI) [Ratio]32.45 kg/a7MbjyomReyna Esparza MD Work Phone: 1(519)[facility] HospitalWvagpdrfwc22-61-9978 08:46-0400Body yecwfh12.45 kgReyna Esparza MD Work Phone: 1(033)[facility] HospitalZormmtddcn86-64-0986 08:46-0400Diastolic blood dmmqmewa44 mm[Hg]Reyna Esparza MD Work Phone: 1(902)[facility] HospitalYeujhqgshr41-80-5547 08:46-0400Heart rate72 /min Reyna Esparza MD Work Phone: 1(970)[facility] HospitalCysefmkkaj08-43-5822 08:46-0400Systolic blood mugmdowa460 mm[Hg]Reyna Esparza MD Work Phone: 1(623)[facility]-6484[facility] HospitalHupuqjjgid20-91-0399 10:20-0400Diastolic blood ybjjmtsq99 mm[Hg]Nathan Ball DO Work Phone: [phone]04-17-2025 10:20-0400 Heart rate56 /minBenjamin Ball DO Work Phone: 1([phone]04-17-2025 10:20-0400 Respiratory rate18 /minBenjamin Ball DO Work Phone: [phone])722-18[facility]04-17-2025 10:20-0400 SaO2% (BldA) [Mass fraction]97 %Nathan Ball DO Work Phone: 1(287)128-[address] [place], [place] 0575904-17-2025 10:20-0400 Systolic blood njoaoixh300 mm[Hg]Nathan Ball DO Work Phone: 1419)[address] [place], [place] 7756304-17-2025 06:29-0400 Body qzubaz499.1 cmBenjamin Ball DO Work Phone: 1419)[address] [place], [place] 7756304-17-2025 06:29-0400 Body mehzzsymigv72.3 [degF]Nathan Ball DO Work Phone: 1419)[address] [place], [place] 7756304-17-2025 06:29-0400 Body ygifqt77.9 kgBenjamin Ball DO Work Phone: 1419)[address] [place], [place] 7756303-27-2025 10:20-0400 Body mkdomx263.37 cmBenjamin Ball DO Work Phone: 1419)[address] [place], [place] 7756303-27-2025 10:20-0400 Body mass index (BMI) [Ratio]31.9 kg/e3Mbordvsg Ball DO Work Phone: 1419)[address] [place], [place] 7756303-27-2025 10:20-0400 Body itvwct13.45 kgBenjamin Ball DO Work Phone: 1(537)[address] [place], [place] 7756303-27-2025 10:20-0400 Diastolic blood kzjggbye02 mm[Hg]Nathan Ball DO Work Phone: 1(769)[address] [place], [place] 7756303-27-2025 10:20-0400 Heart rate65 /minBenjamin Ball DO Work Phone: 1(142)[address] [place], [place] 7756303-27-2025 10:20-0400 Respiratory rate12 /minBenjamin Ball DO Work Phone: 1419)[address] [place], [place] 7756303-27-2025 10:20-0400 Systolic blood psuktaeq545 mm[Hg]Nathan Ball DO Work Phone: 1(147)[address] [place], [place] 7756303-17-2025 11:10-0400 Body gfvogx796.1 cmHolden Rosado B[employer]TLING [employer]OM WORKER[employer] Work Phone: [facility]03-17-2025 11:10-0400 Body mass index (BMI) [Ratio]33.28 kg/p5HpgmaHolden Rosado [employer]ING [employer] WORKER[employer] Work Phone: [facility]03-17-2025 11:10-0400 Body otkttd21.72 kgHolden Rosado B[employer]ING [employer] WORKER[employer] Work Phone: [facility]03-17-2025 11:10-0400 Diastolic blood mm[Hg]Holden Rosado [employer] WORKER[employer] Work Phone: [facility]03-17-2025 11:10-0400 Heart rate60 /Jasbir Rosado [employer] WORKER[employer] Work Phone: [facility]03-17-2025 11:10-0400 Systolic blood yxyjyeka056 mm[Hg]Holden Rosado [employer] WORKER[employer] Work Phone: [facility]02-18-2025 10:50-0500 Body olagkn818.37 cmBenjamin Ball DO Work Phone: [phone]02-18-2025 10:50-0500 Body mass index (BMI) [Ratio]32 kg/g2Bzvratnj Ball DO Work Phone: 1(013)622-[address] [place], [place] 0575902-18-2025 10:50-0500 Body .59 kgBenjamin Ball DO Work Phone: 1(038)[phone]02-18-2025 10:50-0500 Diastolic blood awaqkodb03 mm[Hg]Nathan Ball DO Work Phone: 1(388)442-[address] [place], [place] 0575902-18-2025 10:50-0500 Heart rate56 /minBenjamin Ball DO Work Phone: 1(093)609-57[facility]02-18-2025 10:50-0500 SaO2% (BldA) [Mass fraction]97 %Nathan Ball DO Work Phone: 1(969)395-38[facility]02-18-2025 10:50-0500 Systolic blood puulvimw027 mm[Hg]Nathan Ball DO Work Phone: 1(419)[address] [place], [place] 7756301-28-2025 13:55-0500 Body qsmunp180.1 cmReyna Esparza MD Work Phone: 1(338)[address] [place], [place] 5314401-28-2025 13:55-0500Body mass index (BMI) [Ratio]32.28 kg/f5SsakaaReyna Esparza MD Work Phone: 1(097)[address] [place], [place] 5314401-28-2025 13:55-0500Body ihilyy46 kg Reyna Esparza MD Work Phone: 1(814)[address] [place], [place] 5314401-28-2025 13:55-0500Diastolic blood vtuohbed92 mm[Hg]Reyna Esparza MD Work Phone: 1(571)[address] [place], [place] 5314401-28-2025 13:55-0500Heart rate60 /min Reyna Esparza MD Work Phone: 1(019)[address] [place], [place] 5314401-28-2025 13:55-0500Systolic blood njeiwllf357 mm[Hg]Reyna Esparza MD Work Phone: 1(803)[address] [place], [place] 5314401-20-2025 13:05-0500Diastolic blood phvcdbed79 mm[Hg]Nathan Ball DO Work Phone: 1(602)[address] [place], [place] 7756301-20-2025 13:05-0500 Heart rate68 /minBenjamin Ball DO Work Phone: 1(003)[address] [place], [place] 7756301-20-2025 13:05-0500 Respiratory rate16 /minBenjamin Ball DO Work Phone: 1(391)[address] [place], [place] 7756301-20-2025 13:05-0500 SaO2% (BldA) [Mass fraction]94 %Nathan Ball DO Work Phone: 1(219)[address] [place], [place] 7756301-20-2025 13:05-0500 Systolic blood ctcygicl144 mm[Hg]Nathan Ball DO Work Phone: 1(078)[address] [place], [place] 7756301-20-2025 10:05-0500 Body afpnkt356.37 cmBenjamin Ball DO Work Phone: 1(264)[address] [place], [place] 7756301-20-2025 10:05-0500 Body uerqfa44.35 kgBenjaairam Hathaway DO Work Phone: [facility]12-11-2024 10:40-0500 Body .1 cmEdinson Perry DO Work Phone: [facility]12-11-2024 10:40-0500 Body mass index (BMI) [Ratio]33.12 kg/v5XtrjvucEdinson Perry DO Work Phone: [facility]12-11-2024 10:40-0500 Body chysut36.27 kgEdisnon Perry DO Work Phone: [address] [place], [place] 5561312-11-2024 10:40-0500 Diastolic blood asqsznzk05 mm[Hg]Edinson Perry DO Work Phone: [facility]12-11-2024 10:40-0500 Heart rate78 /Frieda Perry DO Work Phone: [facility]12-11-2024 10:40-0500 Systolic blood mm[Hg]Edinson Perry DO Work Phone: [facility]11-14-2024 10:19-0500 Body .1 cm[facility]11-14-2024 10:19-0500Body mass index (BMI) [Ratio]32.3 kg/p2CwhuuooynK[facility]11-14-2024 10:19-0500Body lhiztv76.13 kgK[facility]11-14-2024 10:19-0500Diastolic blood mm[Hg][facility] 09-11-2024 10:19-0500Heart rate63 /minK[facility] 09-11-2024 10:19-6184QiS4% (BldA) [Mass fraction]97 %[facility]11-14-2024 10:19-0500Systolic blood mm[Hg][facility]08-06-2024 10:54-0400Body flfohg706.1 cmDO Nathan Ball Work Phone: [facility]08-06-2024 10:54-0400 Body mass index (BMI) [Ratio]26.8 kg/m2DO Nathan Ball Work Phone: [facility]08-06-2024 10:54-0400 Body nfwmym72.02 kgDO Nathan Ball Work Phone: 1(520)139-47[facility]08-06-2024 10:54-0400 Diastolic blood rmfmoble97 mm[Hg]DO Nathan Ball Work Phone: 1(227)496-55[facility]08-06-2024 10:54-0400 Heart rate56 /minDO Nathan Ball Work Phone: 1(876)994-13[facility]08-06-2024 10:54-0400 Respiratory rate12 /minDO Nathan Ball Work Phone: 1(119)693-78[facility]08-06-2024 10:54-0400 Systolic blood obrbgbsx996 mm[Hg]DO Nathan Ball Work Phone: 1(143)917-42[facility]06-24-2024 10:21-0400 Body mass index (BMI) [Ratio]32.98 kg/h4QljdwHolden Rosado B[employer]ING [employer] WORKER-[employer] Work Phone: [facility]06-24-2024 10:21-0400 Body oaczva87.9 kgHolden Rosado [employer]ING [employer] WORKER[employer]ICER Work Phone: [phone](455)[phone]06-24-2024 10:21-0400 Diastolic blood cknafthj05 mm[Hg]Holden Rosado [employer] WORKER[employer]ER Work Phone: [facility]06-24-2024 10:21-0400 Heart rate60 /Jasbir Rosado [employer] WORKER[employer]ICER Work Phone: 6([phone]06-24-2024 10:21-0400 Systolic blood hbrqbadm387 mm[Hg]Holden Rosado [employer] WORKER[employer] OFFICER Work Phone: 4([phone])[phone]05-15-2024 09:27-0400 Diastolic blood lfzuukin59 mm[Hg]Laura [address] [place] [address] 03-12-2024 09:27-0400Heart rate62 /minEly [address] [place] [address] 03-12-2024 09:27-0400Systolic blood mqyrqizr348 mm[Hg]Laura [address] [place], [place] 2215205-08-2024 11:46-0400Body iffvcx723.1 cmHolden Rosado [employer] WORKER[employer] Work Phone: 0(411)774-[address] [place], [place] 3160205-08-2024 11:46-0400 Body mass index (BMI) [Ratio]32.62 kg/n4BolytHolden Rosado [employer] WORKER[employer] Work Phone: 1(511)[address]05-08-2024 11:46-0400 Body msuzdp20.91 kgHolden Rosado B[employer]ING [employer] WORKER-[employer]ER Work Phone: 1(997)096-[address] [place], [place] 3160205-08-2024 11:46-0400 Diastolic blood mm[Hg]Holden Rosado [employer] WORKER[employer]ICER Work Phone: 1(797)998-[address] [place], [place] 3160205-08-2024 11:46-0400 Heart rate62 /Jasbir Rosado [employer] WORKER[employer]ICER Work Phone: 0(140)204-[address] [place], [place] 3160205-08-2024 11:46-0400 Systolic blood mm[Hg]Holden Rosado [employer] WORKER[employer]ICER Work Phone: 9(164)006-[address] [place], [place] 3160205-01-2024 09:53-0400 Body .1 cmDO Nathan Ball Work Phone: [facility]05-01-2024 09:53-0400 Body mass index (BMI) [Ratio]31.9 kg/m2DO Nathan Ball Work Phone: [facility]05-01-2024 09:53-0400 Body cdwoch41.08 kgDO Nathan Ball Work Phone: [facility]05-01-2024 09:53-0400 Diastolic blood wpdhkoxi69 mm[Hg]DO Nathan Ball Work Phone: [facility]05-01-2024 09:53-0400 Heart rate62 /minDO Nathan Ball Work Phone: [facility]05-01-2024 09:53-0400 SaO2% (BldA) [Mass fraction]97 %DO Nathan [employer] Work Phone: [facility]05-01-2024 09:53-0400 Systolic blood cttjrotn707 mm[Hg]DO Nathan [employer] Work Phone: [facility]04-17-2024 10:30-0400 Body oztvjo960.1 cmK[facility]04-17-2024 10:30-0400Body mass index (BMI) [Ratio]32.8 kg/p7EdigghbhrK[facility] Health [facility]04-17-2024 10:30-0400Body xrumcv01.35 kgK[facility]04-17-2024 10:30-0400Diastolic blood xjbbupow39 mm[Hg][facility] 02-13-2024 10:30-0400Heart rate56 /[facility] 02-13-2024 10:30-8458MxA9% (BldA) [Mass fraction]98 %[facility]04-17-2024 10:30-0400Systolic blood xeuiypmh582 mm[Hg][facility]04-05-2024 11:01-0400Body cpmiin802.1 cmK[facility]04-05-2024 11:01-0400Body mass index (BMI) [Ratio]27.3 kg/j7IolghgufqK[facility]tering Health [facility]04-05-2024 11:01-0400Body mxdazd43.44 kgK[facility]04-05-2024 11:01-0400Diastolic blood dvbmiefk77 mm[Hg] [facility]04-05-2024 11:01-0400Heart rate49 /[facility]04-05-2024 11:01-0400Respiratory rate12 /[facility]04-05-2024 11:01-0400Systolic blood mm[Hg] [facility]01-05-2024 11:00-0500Body eghnbd198.1 cm Nathan Ball Other [employer] Other 01-05-2024 11:00-0500Body mass index (BMI) [Ratio] 31.78 kg/u6Kboyfmuz Ball Other [employer] Other 01-05-2024 11:00-0500Body uuuuds38.64 kgBenjamin Ball Other [employer] Other 01-05-2024 11:00-0500Diastolic blood jpudvlxh05 mm[Hg] Nathan Ball Other [employer] Other 01-05-2024 11:00-0500Respiratory rate16 /minBenjamin Ball Other [employer] Other 01-05-2024 11:00-0500Systolic blood yqqifpyl874 mm[Hg] Nathan Ball Other [employer] Other 12-05-2023 09:45-0500Body jizxnm637.1 cmBenjamin Ball Other [employer] Other 12-05-2023 09:45-0500Body mass index (BMI) [Ratio] 31.61 kg/r3Ipnlzatc Ball Other [employer] Other 12-05-2023 09:45-0500Body sepcpp29.18 kgBenjamin Ball Other [employer] Other 12-05-2023 09:45-0500Diastolic blood mm[Hg] Nathan Ball Other [employer] Other 12-05-2023 09:45-0500Respiratory rate12 /minBenjamin Ball Other [employer] Other 12-05-2023 09:45-0500Systolic blood pvwdhonu277 mm[Hg] Nahtan Ball Other [employer] Other 08-11-2023 11:15-0400Body rcktiw772.1 cmBenjamin Ball Other [employer] Other 08-11-2023 11:15-0400Body mass index (BMI) [Ratio] 32.95 kg/r2Nxrfpdhv Ball Other [employer] Other 08-11-2023 11:15-0400Body ngekgt68.81 kgBenjamin Ball Other [employer] Other 08-11-2023 11:15-0400Diastolic blood htnwidue29 mm[Hg] Nathan Ball Other [employer] Other 08-11-2023 11:15-0400Respiratory rate12 /minBenjamin Ball Other [employer] Other 08-11-2023 11:15-0400Systolic blood abvtmgpo261 mm[Hg] Nathan Ball Other [employer] Other 08-07-2023 13:51-0400Body hhagurcqcol62.7 [degF]Luis Mckenzie MD Work Phone: [facility]08-07-2023 13:51-0400Body .99 kgLuis Mckenzie MD Work Phone: [facility]08-07-2023 13:51-0400Diastolic blood sesufxia95 mm[Hg]Luis Mckenzie MD Work Phone: [facility]08-07-2023 13:51-0400Heart rate56 /min Luis Mckenzie MD Work Phone: [facility]08-07-2023 13:51-0400Respiratory rate 18 /minLuis Mckenzie MD Work Phone: [facility]08-07-2023 13:51-7776ThV0% (BldA) [Mass fraction]98 %Luis Mckenzie MD Work Phone: [facility]08-07-2023 13:51-0400Systolic blood buvsetle258 mm[Hg]Luis Mckenzie MD Work Phone: [facility]07-28-2023 11:15-0400Body xjiwsu486.1 cmBenjamin Ball Other [employer] Other 07-28-2023 11:15-0400Body mass index (BMI) [Ratio] 32.86 kg/i1Yzbsfrlr Ball Other [employer] Other 07-28-2023 11:15-0400Body .59 kgBenjamin Ball Other [employer] Other 07-28-2023 11:15-0400Diastolic blood qffwydxh34 mm[Hg] Nathan Ball Other [employer] Other 07-28-2023 11:15-0400Respiratory rate16 /minBenjamin Ball Other [employer] Other 07-28-2023 11:15-0400Systolic blood yetfcleh771 mm[Hg] Nathan Ball Other [employer] Other 07-21-2023 15:30-0400Body vsqwmyadbfg49.7 [degF]DO Nathan Ball Work Phone: 1(907)449-61[facility]07-21-2023 15:30-0400 Diastolic blood yqyvynrn10 mm[Hg]DO Nathan Ball Work Phone: 1(066)470-61[facility]07-21-2023 15:30-0400 Heart rate62 /minDO Nathan Ball Work Phone: 1(528)497-35[facility]07-21-2023 15:30-0400 Respiratory rate16 /minDO Nathan Ball Work Phone: 1(776)527-67[facility]07-21-2023 15:30-0400 SaO2% (BldA) [Mass fraction]95 %DO Nathan Ball Work Phone: 1(462)145-[facility]07-21-2023 15:30-0400 Systolic blood jteubwhs931 mm[Hg]DO Nathan Ball Work Phone: 1(541)[address]07-21-2023 05:39-0400 Body qkdmyk78.1 kgDO Nathan [employer] Work Phone: 1(578)474-98[facility]07-20-2023 20:00-0400 Inhaled oxygen flow rate1.5 L/BrittneyO Nathan Ball Work Phone: 1(899)817-63[facility]07-20-2023 15:54-0400 Body zwtdir205.72 cmDO Nathan Ball Work Phone: 1(028)263-41[facility]07-19-2023 11:30-0400 Body ihgkoy175.1 cmBenjaairam Ball Other [facility] [employer] Other 07-19-2023 11:30-0400Body mass index (BMI) [Ratio] 33.28 kg/n6Zwwdfinv Ball Other [employer] Other 07-19-2023 11:30-0400Body xunzyx57.72 kgBenjamin Ball Other [employer] Other 07-19-2023 11:30-0400Diastolic blood ribramav05 mm[Hg] Nathan Ball Other [employer] Other 07-19-2023 11:30-0400Respiratory rate16 /minBenjamin Ball Other [employer] Other 07-19-2023 11:30-0400Systolic blood anfmqfvf825 mm[Hg] Nathan Ball Other [employer] Other 07-12-2023 11:15-0400Body lizkmm844.1 cmBenjamin Ball Other [employer] Other 07-12-2023 11:15-0400Body mass index (BMI) [Ratio] 32.75 kg/c3Wchygsbc Ball Other [employer] Other 07-12-2023 11:15-0400Body toweqy38.27 kgBenjamin Ball Other [employer] Other 07-12-2023 11:15-0400Diastolic blood ktdabxma17 mm[Hg] Nathan Ball Other [employer] Other 07-12-2023 11:15-0400Respiratory rate16 /minBenjamin Ball Other [employer] Other 07-12-2023 11:15-5005AjL5% (BldA) [Mass fraction]98 % Nathan Ball Other [employer] Other 07-12-2023 11:15-0400Systolic blood avzsjqmu493 mm[Hg] Nathan Ball Other [employer] Other 06-29-2023 11:30-0400Body mymiqn321.1 cmBenjamin Ball Other [employer] Other 06-29-2023 11:30-0400Body mass index (BMI) [Ratio] 32.53 kg/i6Wrajuegz Ball Other [employer] Other 06-29-2023 11:30-0400Body kyhbod40.68 kgBenjamin Ball Other [employer] Other 06-29-2023 11:30-0400Diastolic blood rllgcadu42 mm[Hg] Nathan Ball Other [employer] Other 06-29-2023 11:30-0400Respiratory rate16 /minBenjamin Ball Other [employer] Other 06-29-2023 11:30-0400Systolic blood rtqrakhc452 mm[Hg] Nathan Ball Other [employer] Other 06-21-2023 09:45-0400Body .1 cmBenjamin Ball Other [employer] Other 06-21-2023 09:45-0400Body mass index (BMI) [Ratio] 33.28 kg/g8Krcaqibi Ball Other [employer] Other 06-21-2023 09:45-0400Body sfkirz70.72 kgBenjamin Ball Other [employer] Other 06-21-2023 09:45-0400Diastolic blood mm[Hg] Nathan Ball Other [employer] Other 06-21-2023 09:45-0400Respiratory rate20 /minBenjamin Ball Other [employer] Other 06-21-2023 09:45-5262XbY2% (BldA) [Mass fraction]98 % Nathan Ball Other [employer] Other 06-21-2023 09:45-0400Systolic blood nsojstvg781 mm[Hg] Nathan Ball Other [employer] Other 05-18-2023 10:45-0400Body mukcbw239.1 cmBenjamin Ball Other [employer] Other 05-18-2023 10:45-0400Body mass index (BMI) [Ratio] 31.95 kg/m5Faicmwpa Ball Other [employer] Other 05-18-2023 10:45-0400Body zzbzat18.09 kgBenjamin Ball Other [employer] Other 05-18-2023 10:45-0400Diastolic blood ehgzqnom47 mm[Hg] Nathan Ball Other [employer] Other 05-18-2023 10:45-0400Respiratory rate16 /minBenjamin Ball Other [employer] Other 05-18-2023 10:45-0400Systolic blood kbkndmla531 mm[Hg] Nathan Ball Other [employer] Other 05-12-2023 17:00-0400Body fzyckjfxkcw04.9 [degF]DO Nathan Ball Work Phone: [facility]05-12-2023 17:00-0400 Diastolic blood hbpjhjsi17 mm[Hg]DO Nathan Ball Work Phone: 1(282)927-51[facility]05-12-2023 17:00-0400 Heart rate54 /minDO Nathan Ball Work Phone: 1(214)318-08[facility]05-12-2023 17:00-0400 Respiratory rate16 /minDO Nathan Ball Work Phone: 1(480)284-[address] [place], [place] 0575905-12-2023 17:00-0400 SaO2% (BldA) [Mass fraction]96 %DO Nathan Ball Work Phone: 1(517)638-41[facility]05-12-2023 17:00-0400 Systolic blood feeqgzqr901 mm[Hg]DO Nathan Ball Work Phone: 1(064)091[facility]14[facility]05-12-2023 08:11-0400 Body uykmrp325.1 cmDO Nathan Ball Work Phone: 1(285)[address]05-12-2023 08:11-0400 Body vdbpih18 kgDO Nathan Ball Work Phone: 1(129)439[facility]62[facility]05-10-2023 10:14-0400 Diastolic blood botcpraz24 mm[Hg]Nathan E Ball Work Phone: 1(333) [phone]-Qrjaf [place] [address] DO Work Phone: 1(564) 260-968105-10-2023 10:14-0400Systolic blood cfnkewud974 mm[Hg] Nathan E Ball Work Phone: 1(426) [phone]-Nzqih [place] [facility] [address] DO Work Phone: 1(336) 822-309705-10-2023 10:04-0400Body .1 cmBenjamin E Ball Work Phone: [phone]-Kmrxo [place] [facility]-[place] 250 DO Work Phone: 1(859) 887-893105-10-2023 10:04-0400Body mass index (BMI) [Ratio] 33.95 kg/h6Lutajmcy E Ball Work Phone: 1(809) [phone]-[place]dlgo [place] [address] DO Work Phone: 1(676) 323-818605-10-2023 10:04-0400Body surface area Derived from formula1.99 o1Nfyfedbz E Ball Work Phone: [phone]-Kcvdo [place] [facility] 250 DO Work Phone: 1(112) 586-661005-10-2023 10:04-0400Body .53 kgBenjamin E Ball Work Phone: 1(370) [phone]-Sztaa [place] [address] DO Work Phone: 1(160) 461-709405-10-2023 10:04-0400Diastolic blood kefvgajf29 mm[Hg] Nathan E Ball Work Phone: [phone]-Fpmco [place] [address] DO Work Phone: 1(152) 276-794205-10-2023 10:04-0400Heart rate45 /minBenjamin E Ball Work Phone: 1(120) [phone]-[place] [address] DO Work Phone: 1(728) 985-448905-10-2023 10:04-0400Systolic blood mm[Hg] Nathan E Ball Work Phone: 1(509) [phone]-Kjgjf [place] [address] DO Work Phone: 1(731) 570-615604-19-2023 11:15-0400Body dnfgad751.1 cmBenjamin Ball Other [facility] [employer] Other 04-19-2023 11:15-0400Body mass index (BMI) [Ratio] 32.61 kg/d5Wlhlgtsu Ball Other [employer] Other 04-19-2023 11:15-0400Body exwvxn00.91 kgBenjamin Ball Other [employer] Other 04-19-2023 11:15-0400Diastolic blood mm[Hg] Nathan Ball Other [employer] Other 04-19-2023 11:15-0400Respiratory rate12 /minBenjamin Ball Other [employer] Other 04-19-2023 11:15-0400Systolic blood gocdgeyd988 mm[Hg] Nathan Ball Other [employer] Other 04-07-2023 12:15-0400Body ejslpv365.1 cmBenjamin Ball Other [employer] Other 04-07-2023 12:15-0400Body mass index (BMI) [Ratio] 32.78 kg/l0Ayadtlsc Ball Other [employer] Other 04-07-2023 12:15-0400Body ivzgtb06.36 kgBenjamin Ball Other [employer] Other 04-07-2023 12:15-0400Diastolic blood mrgacumu53 mm[Hg] Nathan Ball Other [employer] Other 04-07-2023 12:15-0400Respiratory rate12 /minBenjamin Ball Other [employer] Other 04-07-2023 12:15-0400Systolic blood erwyccvd927 mm[Hg] Nathan Ball Other [employer] Other 02-16-2023 10:00-0500Body .1 cmBenjamin Ball Other [employer] Other 02-16-2023 10:00-0500Body mass index (BMI) [Ratio] 32.53 kg/c3Titrfico Ball Other [facility] [employer] Other 02-16-2023 10:00-0500Body pltcfa08.68 kgBenalberta Hathaway Other [employer] Other 02-16-2023 10:00-0500Diastolic blood mhstkuah04 mm[Hg] Nathan Hathaway Other [employer] Other 02-16-2023 10:00-0500Respiratory rate12 /minNathan Hathaway Other [facility] [employer] Other 02-16-2023 10:00-0500Systolic blood crpycmbs289 mm[Hg] Nathan Hathaway Other [facility] [employer] Other 02-06-2023 13:25-0500Body qkqkgy754.4 cmLuis Mckenzie MD Work Phone: [facility]02-06-2023 13:25-0500Body temperature 97.11 [degF]Luis Mckenzie MD Work Phone: [facility]02-06-2023 13:25-0500Body getsfb08.36 kgLuis Mckenzie MD Work Phone: [facility]02-06-2023 13:25-0500Diastolic blood bzfmqflo13 mm[Hg]Luis Mckenzie MD Work Phone: [facility]02-06-2023 13:25-0500Heart rate63 /min Luis Mckenzie MD Work Phone: [facility]02-06-2023 13:25-0500Respiratory rate 16 /minLuis Mckenzie MD Work Phone: [facility]02-06-2023 13:25-3293UjS1% (BldA) [Mass fraction]96 %Luis Mckenzie MD Work Phone: [facility]02-06-2023 13:25-0500Systolic blood uviaabuf981 mm[Hg]Luis Mckenzie MD Work Phone: [facility]01-17-2023 15:00-0500Body donlzs283.1 cmBenjamin Ball Other [employer] Other 01-17-2023 15:00-0500Body mass index (BMI) [Ratio] 32.53 kg/y3Vlabtrhp Ball Other [employer] Other 01-17-2023 15:00-0500Body .68 kgBenjamin Ball Other [facility] Other 01-17-2023 15:00-0500Diastolic blood mm[Hg] Nathan Ball Other [facility] Other 01-17-2023 15:00-0500Respiratory rate12 /minBenjamin Ball [facility] Other 01-17-2023 15:00-0500Systolic blood ilxvixwc976 mm[Hg] Nathan Ball Other [facility] Other 08-01-2022 10:06-0400Body .4 Collin Mckenzie MD Work Phone: [facility]08-01-2022 10:06-0400Body temperature 97.59 [degF]Luis Mckenzie MD Work Phone: [facility]08-01-2022 10:06-0400Body .72 kgLuis Mckenzie MD Work Phone: [facility]08-01-2022 10:06-0400Diastolic blood mm[Hg]Luis Mckenzie MD Work Phone: [facility]08-01-2022 10:06-0400Heart rate50 /min Luis Mckenzie MD Work Phone: [facility]08-01-2022 10:06-0400Respiratory rate 16 /minLuis Mckenzie MD Work Phone: [facility]08-01-2022 10:06-1999FtZ1% (BldA) [Mass fraction]96 %Luis Mckenzie MD Work Phone: [facility]08-01-2022 10:06-0400Systolic blood [id number] mm[Hg]Luis Mckenzie MD Work Phone: [facility] Encounters Encounter DateEncounter TypeCare ProviderFacilityStart: 08-04-2025 End: 33-43-5076hptcalencgKpbmsymn Ball DO Work Phone: [facility] Work Phone: Start: 08-04-2025 End: 94-89-8279Shktboa encounter procedureKaia Krishna [facility] V[facility] Surg Work Phone: Start: 07-21-2025 End: 62-22-0689hmrlcrjnvbUlcexdno Ball DO Work Phone: [facility] Work Phone: Start: 07-21-2025 End: 43-53-1076Gjsdrdf encounter procedureBeron Hathaway DO-[facility] Work Phone: Start: 24-83-1884Aod-patient / Non-visitValentin Leonard MD-[facility] Work Phone: Start: 07-15-2025 End: 73-16-8432xbistlbfeiTTVRCUZI E BALLFacility:[facility] HospitalStart: 07-10-2025 End: 27-25-9721Xfwbuijya encounterValentin Leonard MD Work Phone: Cancer Appts MCComment on above:Orders; Patient Update Start: 07-08-2025 End: 51-32-4464Erqcqyfvv encounterPaolo Casillas APRN.M[employer]OR[employer]ED SQUAD COMMANDING OFFICER Work Phone: Cancer Appts MCComment on above:ResultsStart: 07-08-2025 End: 11-02-8681Ygxcdvm encounter procedurePaolo Casillas APRN.MOTOR[employer]ED [employer]QU[employer] COMMANDING OFFICER Work Phone: Hematology/OncologyStart: 94-38-8453Rre-patient / Non-visitJaimee Ethan BOTTLING ROOM WORKER TEST PREPARATION TUTOR-C-[facility] Work Phone: Start: 07-08-2025 End: 04-87-5703tufioyyevoManimVaibhav Casillas APRN.M[employer]OR[employer]ED [employer]QUAD COMMANDING OFFICER Work Phone: Hematology/OncologyComment on above:Abnormal SPEP (Primary Dx); Primary hypertension; Hyperlipidemia, unspecified hyperlipidemia type; Heart disease; Edema, unspecified type; Monoclonal gammopathy of undetermined significance; Anemia in other chronic diseases classified elsewhereStart: 07-06-2025 End: 20-82-7245Jcpsrhlds encounterPaolo Casillas APRN.M[employer]OR[employer]ED SQU[employer] COMMANDING OFFICER Work Phone: Hematology/OncologyComment on above:Lab Orders (nt) Start: 27-58-8379Bjm-patient / Non-visitBenjamin Fransico DO-[facility] Work Phone: Start: 84-50-6933Tav-patient / Non-visitBenjamin Ball DO-[facility] Work Phone: Start: 06-19-2025 End: 22-16-9443sujcnpqylpLwemkira Ball DO Work Phone: [facility] Work Phone: Start: 06-19-2025 End: 15-33-9005Ufhqpwk encounter procedureBenjamin Ball DO-[facility] Work Phone: Start: 05-19-2025 End: 99-55-2796hkfmrluitoFmagaxsk Ball DO Work Phone: [facility] Work Phone: Start: 05-19-2025 End: 17-65-0657Tvwqkkk encounter procedureBenalberta Hathaway DO-[facility] Work Phone: Start: 03-19-2025 End: 94-44-9876dokbyphfzzDgiunsok Ball DO Work Phone: [facility] Work Phone: Start: 03-19-2025 End: 81-39-2799Fjzludy encounter procedureBenalberta Hathaway DO Work Phone: [facility] Work Phone: Start: 43-13-0051Lbi-patient / Non-visitBenalberta Hathaway DO Work Phone: [facility] Work Phone: Start: 03-17-2025 End: 83-92-6284Emykjknnkh hospital visit by Derrick Blair Echo/Vasc Room 2Medical Center EnterpriseComment on above:Essential hypertension; PalpitationsStart: 03-17-2025 End: 17-41-7059joopmwcnscRBBDH [facility] Start: 03-13-2025 End: 25-66-0014Dcycnml encounter procedureBeron Hathaway DO Work Phone: [facility] Work Phone: Start: 02-25-2025 End: 13-99-0885Aiktoq flowsheetReyna Esparza MD Work Phone: [facility] CI ENTStart: 02-25-2025 End: 89-27-2347Yljiap flowsheetReyna Esparza MD Work Phone: [facility] CI ENTStart: 02-25-2025 End: 19-44-8673Jtzqgf outpatient visit 15 minutesReyna Esparza MD Work Phone: noMS CI ENTComment on above:Nontoxic multinodular goiter (CMS/HCC) (Primary Dx)Start: 02-25-2025 End: 43-47-2366rghezryymkWRFSKG H TIMMISNot AvailableStart: 02-12-2025 End: 17-45-1842Lijfkvwmt department patient visitBeron HathawayFacility:[facility] Hospitaltart: 02-10-2025 End: 46-64-9101Nihwamwtk Result EncounterReyna Esparza MD Work Phone: noms External Department UnsolicitedStart: 02-10-2025 End: 56-08-5835Gaszxnyhf Result EncounterHirosa Esparza MD Work Phone: noms External Department UnsolicitedStart: 01-26-2025 End: 19-36-0510ijywlwsoblSNINS [facility] AmbulatoryStart: 94-07-4934Gbj-patient / Non-visitBenjuanmin Ball DO Work Phone: [facility] Work Phone: Start: 01-22-2025 End: 05-69-9939iwhhnvqtylGdobtzzi Ball DO Work Phone: [facility] Work Phone: Start: 01-22-2025 End: 48-71-1620Toosxez encounter procedureBenjuanmin Ball DO Work Phone: [facility] Work Phone: Start: 01-12-2025 End: 86-66-9201Iueyyw outpatient visit 25 Lesia Rosado APRNWINTHROP COMM[facility] Work Phone: [facility] HospitalComment on above:BMI 33.0-33.9,adult (Primary Dx); Essential hypertension; Palpitations; ASHD (arteriosclerotic heart disease); Mixed hyperlipidemiaStart: 01-12-2025 End: 04-63-9294ilfmhgpidfYLTME [facility] AmbulatoryStart: 12-29-2024 End: 52-66-6254qfbxgfbgcqMxahcltr Ball DO Work Phone: [facility] Work Phone: Start: 12-29-2024 End: 08-61-1626Hbxiucc encounter procedureBenjamin Ball DO Work Phone: [facility] Work Phone: Start: 59-59-2097Qez-patient / Non-visitBenjamin Ball DO Work Phone: [facility] Work Phone: Start: 12-16-2024 End: 92-66-5997Mcutgkd encounter procedureBenjamin Ball DO Work Phone: [facility] Phys[facility] GroupF[facility] Work Phone: Start: 11-25-2024 End: 45-94-2339Nexjmx flowsheetHirosa Esparza MD Work Phone: noms CI ENTStart: 11-25-2024 End: 78-38-6050Qtzbun flowsheetReyna Esparza MD Work Phone: noms CI ENTStart: 11-25-2024 End: 95-33-1775Vyxpik outpatient new 45 minutesReyna Esparza MD Work Phone: noms CI ENTComment on above:Thyroid nodule (CMS/HCC) (Primary Dx)Start: 11-25-2024 End: 50-74-3994ggrfzekczaPBRVHY H TIMMISNot AvailableStart: 88-14-0420hwcfirheky Nathan Ball DO Work Phone: [facility] Work Phone: Start: 57-44-6888Jiq-patient / Non-visitBenjamin Ball DO Work Phone: [facility] Physician [facility] Work Phone: Start: 11-17-2024 End: 89-46-0304Zkvsawdjh to same day surgery centerBenjamin Ball DO Work Phone: [facility]-Ultrasound Main [place] Work Phone: Start: 11-17-2024 End: 87-97-3282oczfpuirmeVpqakhfs Ball DO Work Phone: [facility] Work Phone: Start: 10-09-2024 End: 28-32-0980IxaxftPqqhzgg [facility] COT Work Phone: NOEA OPHTStart: 10-08-2024 End: 74-58-4950Fyubmt outpatient visit 25 [facility]jignesh Bledsoe [place] DO Work Phone: [facility] on above:ASHD (arteriosclerotic heart disease); Essential hypertension; BMI 33.0-33.9,adult; Former smoker; S/P PTCA (percutaneous transluminal coronary angioplasty); Mixed hyperlipidemia; Coronary arteriosclerosis after percutaneous transluminal coronary angioplasty (PTCA)Start: 10-08-2024 End: 52-60-9303hbnygoxgllBBDQOIANoland Hospital [facility] AmbulatoryStart: 05-78-4019Osn-patient / Non-visitBenjamin Ball DO Work Phone: [facility] Physician Group-[facility] Work Phone: Start: 09-11-2024 End: 88-33-1670xgfayhruvnMqnqasiiqKettering Memorial Hospital Work Phone: Start: 09-11-2024 End: 07-90-7475Eswscbp encounter procedureNov[facility] Health [facility] Work Phone: Start: 55-34-6714Dio-patient / Non-visitNovant Health [facility] Work Phone: Start: 07-16-2024 End: 79-14-0412ewmalcuvevCkyodopfnKettering Health [facility] Work Phone: Start: 07-16-2024 End: 23-87-2144Jctcvkt encounter procedureNovant Health [facility] Work Phone: Start: 06-03-2024 End: 84-72-2127zuyhcsmvxlLJ Nathan Hathaway Work Phone: [facility] Work Phone: Start: 06-03-2024 End: 58-78-7796Egqexvn encounter procedureDO Nathan Hathaway Work Phone: [facility] Physician Group-[facility] Work Phone: Start: 69-36-9887Tho-patient / Non-visitDO Nathan Hathaway Work Phone: [facility] Work Phone: Start: 37-21-5863Mqt-patient / Non-visitDO Nathan Hathaway Work Phone: [facility] Work Phone: Start: 04-28-2024 End: 28-63-4691cwweaiwmniRTOIGRGU D ZAHLERNot AvailableStart: 04-21-2024 End: 88-21-7110Cwptsn outpatient visit 15 [facility] englandHolden Rosado BOTTLING ROOM WORKER-[facility] Work Phone: [facility] HospitalComcorewell [facility] on above:Essential hypertension (Primary Dx); ASHD (arteriosclerotic heart disease); Mixed hyperlipidemia; BMI 32.0-32.9,adultStart: 04-21-2024 End: 66-56-6231tqrvmyfbkhNSSTM K [facility] AmbulatoryStart: 03-12-2024 End: 98-60-8622Ukcqbtvbgf hospital visit by physicianLaura Huang250a [place] 1Medical Center EnterpriseComment on above:ASHD (arteriosclerotic heart disease)Start: 03-05-2024 End: 32-23-8168Xxwgvzm encounter procedureDO Nathan Hathaway Work Phone: [facility]-Lab Main [place] Work Phone: Start: 03-05-2024 End: 09-16-2649lwxvjxdmdrSP Nathan [employer] Work Phone: [facility] Work Phone: Start: 03-05-2024 End: 11-53-6366Bxumbk outpatient visit 25 minutesSeshu Rosado BOTTLING ROOM WORKER-[facility] Work Phone: uh [facility] on above:ASHD (arteriosclerotic heart disease) (Primary Dx); Essential hypertension; Mixed hyperlipidemia; BMI 32.0-32.9,adultStart: 02-27-2024 End: 91-21-9268Tffmioj encounter procedureDO Nathan [employer] Work Phone: [facility] Physician Group-[facility] Work Phone: start: 38-82-9328Eim-patient / Non-visitDO Nathan [employer] Work Phone: [facility] Physician Group-[facility] Work Phone: Start: 27-78-4350Bsj-patient / Non-visitDO Nathan [employer] Work Phone: [facility] Physician Group-[facility] Work Phone: Start: 80-20-3603Jfh-patient / Non-visitDO Nathan [employer] Work Phone: [facility] Work Phone: Start: 35-61-9987Fui-patient / Non-visitDO Nathan [employer] Work Phone: [facility] Work Phone: Start: 02-13-2024 End: 09-49-8369bbidcmhbueIhqnaosnmKettering Health [facility] Work Phone: Start: 02-13-2024 End: 37-16-8104Zdvxmhm encounter procedureNovant Health [facility] Physician GroupFulton [facility] Work Phone: Start: 81-26-2703Gws-patient / Non-visitNovant Health New [facility] Work Phone: Start: 02-01-2024 End: 26-13-3102vyafjldwfrMihzqwicgKettering Health [facility] Work Phone: Start: 02-01-2024 End: 73-82-7012Mvbrykm encounter procedureNovant Health [facility] Work Phone: Start: 01-04-2024 End: 68-81-6795qwyucnzbavEndxiobb Ball Other noAuditFile Other Start: 94-95-9069Tksewtwse encounterBenjamin BallFP[facility] ClinicStart: 24-78-8928Uvk-patient / Non-visitNovant Health [facility] Phys[facility]-[place] [employer] Work Phone: Start: 11-27-2023 End: 54-66-3821exsqprxgktOpaxjyqw Ball Other noAuditFile Other Start: 96-14-9407Zynexcshl encounterBenjamin BallFPG [facility] ClinicStart: 11-02-2023 End: 23-54-9609gsndbhguqlWcvgesnu Ball Other noAud[employer]File Other Start: 84-72-4388Flvyux outpatient visit 25 minutes Nathan BallFP[facility] ClinicStart: 10-02-2023 End: 18-17-0771hfjocefaldSkluamji Ball Other noAud[employer]File Other Start: 20-30-7000Kphmqm outpatient visit 25 minutes Nathan BallFP[facility] ClinicStart: 09-26-2023 End: 89-35-4780bopdlbvefoMsfdvaoi Ball Other no[employer] Other Start: 58-39-7683Vjtjfppqe encounterBenjamin BallFP[facility] ClinicStart: 09-21-2023 End: 01-58-1663cqcmtubcfwLioigjjc Ball Other no[employer] Other Start: 52-26-2039Qplrasmiy encounterBenjamin BallFPG [facility] ClinicStart: 2023 End: 25-21-2355vzjxpxuvmyNxurpoye Ball Other [facility] [employer] Other Start: 54-15-2419Sdmvpdjax encounterBenjamin BallFP[facility] ClinicStart: 09-13-2023 End: 94-91-8503wyumtwoyelZyljqwws Ball Other [facility] [employer] Other Start: 31-56-2935Ewwntaubw encounterBenjamin BallFP[facility] ClinicStart: 09-11-2023 End: 52-89-2274qijkrvfnchKcggdtet Ball Other [facility] [employer] Other Start: 64-44-4178Rywgdl outpatient visit 15 minutes Nathan BallFPG [facility] ClinicStart: 08-16-2023 End: 46-61-4751svbqpxqtjwNuxrthdy Ball Other [facility] [employer] Other Start: 02-39-1820Wxlhssehn encounterBenjamin BallFP[facility] ClinicStart: 07-31-2023 End: 98-22-2865xinjpmnlnfLjcxenfu Ball Other [facility] [employer] Other Start: 04-66-1719Qifehcvvy encounterBenjamin BallFP[facility] ClinicStart: 07-30-2023 End: 27-94-4319sqrrzgrduaGtbwtddk Ball Other [facility] [employer] Other Start: 68-44-9752Hpyyfaemm encounterBenjamin BallFP[facility] ClinicStart: 07-19-2023 End: 56-32-4404kvpulceiekLavcxrsd Ball Other noAud[employer]File Other Start: 09-86-9400Pjjidvwcu encounterBenjamin BallFP[facility] ClinicStart: 07-18-2023 End: 47-58-3522llxddsuemjZpzvzcsq Ball Other no[employer]File Other Start: 49-62-9159Ojemseaak encounterBenjamin BallFP[facility] ClinicStart: 07-17-2023 End: 69-63-9234eymqqsklnnVibekkdu Ball Other no[employer]File Other Start: 66-80-9877Hqzazzu evaluation of patient and reportBenjamin BallFPG [facility] ClinicStart: 06-28-2023 End: 25-29-5017gkntbwzsduBzalleoz Ball Other [facility] [employer] Other Start: 47-05-1247Qnziyrvrb encounterBenjamin BallFP[facility] ClinicStart: 06-25-2023 End: 63-03-4715gyzjnriujgGylmsfxv Ball Other [employer] Other Start: 94-65-0389Figaqassy encounterBenjamin BallFP[facility] ClinicStart: 06-21-2023 End: 92-58-7137semzirdcgcObgshyyq Ball Other noAuditFile Other Start: 56-49-7272Cfvivlbpo encounterBenjamin BallFP[facility] ClinicStart: 06-19-2023 End: 63-81-1535nhqjrgbmnnWyschnof Ball Other no[employer]File Other Start: 74-66-3183Uzikdjgjk encounterBenjamin BallFP[facility] ClinicStart: 06-18-2023 End: 42-34-5834qctyiquelvNpdaheak Ball Other no[employer] Other Start: 86-93-5843Mvzejbiih encounterBenjamin BallFP[facility] ClinicStart: 06-15-2023 End: 18-49-6796tybhutoyfgVtuokxrh Ball Other no[employer] Other Start: 03-46-9546Tvnreqkhb encounterBenjamin BallFP[facility] ClinicStart: 06-08-2023 End: 15-94-6230cslsnskydiHlehlbnx Ball Other no[employer] Other Start: 87-00-6214Hhpjle outpatient visit 15 minutes Nathan YelenaG [facility] ClinicStart: 96-03-6926Hukrvxyxg encounterCristy Manzanares RNHematology/OncologyComment on above:ResultsStart: 06-04-2023 End: 44-41-5916osdwjyzygeEttji R Murphy MD Work Phone: [employer] Other Comment on above:Abnormal SPEP (Primary Dx); Anemia, unspecified type; Neuropathy - (NOS); Heart diseaseStart: 06-04-2023 End: 37-08-1411Qpbrwio encounter procedureLuis Mckenzie MD Work Phone: SANDUSKYStart: 39-34-1410Txwjnqrny encounterBenjamin BallFP[facility] ClinicStart: 06-01-2023 End: 94-33-5389otaixnflxnGzkfvedg Ball Other noAud[employer]File Other Start: 35-77-5439Eootjotlk encounterBenjamin BallFP[facility] ClinicStart: 05-25-2023 End: 22-93-3624tbdrdwqgioVazvlkks Ball Other noAuditFile Other Start: 39-47-7462Cbnguzbyvxcn care manage srvc 14 day dischargeBenjaairam KirkG [facility] ClinicStart: 05-17-2023 End: 36-14-4646Zqhyqgwohx and management of inpatientDO Nathan Hathaway Work Phone: [facility]-[address] [place] [facility] Work Phone: Start: 05-17-2023 End: 62-80-9338yhizlseydnk encounterDO Nathan Hathaway Work Phone: [facility] Work Phone: Start: 05-16-2023 End: 22-97-1936qexfdgodoaCrgiqzkc Ball Other [employer] Other Start: 30-20-3021Toxoec outpatient visit 25 minutes Nathan BallZHAOG [facility] ClinicStart: 05-09-2023 End: 92-66-3524tgclinyrseHoekznel Ball Other [employer] Other Start: 08-75-6608Egfovo outpatient visit 25 minutes Nathan BallFP[facility] ClinicStart: 77-69-3822Zmldcxvdj encounterBenjamin Chinyere Hathaway Work Phone: [phone]) [phone]-Ciism [facility] DO Work Phone: Start: 04-26-2023 End: 98-26-2529tkoxercohbKptfopej Ball Other [employer] Other Start: 47-47-0038Nfbsix outpatient visit 25 minutes Nathan BallFP[facility] ClinicStart: 96-37-6876Gwzohhegi encounterBenjamin BallFP[facility] ClinicStart: 04-18-2023 End: 15-34-8239fxixirqodjMullkbna Ball Other noAud[employer]File Other Start: 04-66-1948Tsahwf outpatient visit 25 minutes Nathan BallFP[facility] ClinicStart: 00-11-3166Czwhafkvh encounterBenalberta KirkG [facility] ClinicStart: 03-27-2023 End: 82-91-5135tedvrursrdRaqwdbux Ball Other [facility] [employer] Other Start: 50-28-0803Qnccvgsjo encounterBenalberta KirkG [facility] ClinicStart: 03-15-2023 End: 45-20-0774tcoulzsyxxUlalruwo Ball Other [place] [employer] Other Start: 08-99-0382Rbhgwx outpatient visit 25 minutes Nathan Hathaway Medical ClinicStart: 03-09-2023 End: 49-39-6801qytrrwvoukRaDr. Edinson PerryGassaway [employer] Other Start: 25-02-2313Sqsbahkcu encounterBenalberta Hathaway Medical ClinicStart: 23-25-4984KUTHJBUCR, Provider: Edinson Perry, Status: Pen, Time: 10:00 AMBenjamin Chinyere Ball Work Phone: [phone]-Qhben [facility] DO Work Phone: Start: 03-09-2023 End: 44-64-4098Bsffyvsqk to same day surgery centerDO Nathan Hathaway Work Phone: [facility]-Before School Babysitter Work Phone: Start: 03-08-2023 End: 65-75-4205xgzcrbrqetHV Nathan Hathaway Work Phone: [facility] Work Phone: Start: 03-08-2023 End: 77-79-7578Exgkefx encounter procedureDO Nathan Hathaway Work Phone: [facility]-Xyk-Bmqfxogm Testing Work Phone: Start: 40-88-3304Uvmdjr consultation new/estab patient 80 minBenjamin E Ball Work Phone: [phone]-Msizp [facility] DO Work Phone: Start: 91-88-0875oppqrjoemgWu. Edinson Perry Facility:[id number]: 03-05-2023 End: 49-83-0242qlvoeutxmjJhaffexe Ball Other [employer] Other Start: 90-54-8979Lulxwddsw encounterBenjamin BallFPG [facility] ClinicStart: 03-01-2023 End: 07-74-6364lgqnnnaanaGL NATHAN BALLFacility:Q3Zxzpq: 02-27-2023 End: 50-17-4883esyduwnovtNemcedqs Ball Other [employer] Other Start: 86-23-9207Jicjeifsa encounterBenjamin BallFP[facility] ClinicStart: 02-20-2023 End: 86-22-7235fokkjvciftKtaffepw Ball Other [employer] Other Start: 50-27-4249Xwkohqcdo encounterBenjamin BallFP[facility] ClinicStart: 02-14-2023 End: 15-05-3051rttixxnyruJljmcrwl Ball Other noAud[employer]File Other Start: 21-13-5026Ydhyzp outpatient visit 25 minutes Nathan BallFP[facility] ClinicStart: 59-16-1612Uvzloqamy encounterBenjamin BallFP[facility] ClinicStart: 02-11-2023 End: 67-23-7758uhhdsooimfOzlabqpx Ball Other no[employer]File Other Start: 40-31-4585Rwxpqbrea encounterBenjamin BallFPG [facility] ClinicStart: 02-08-2023 End: 16-80-5292Zaykwxcszi and management of inpatientDR NATHAN BALLFacility:H1 Start: 02-02-2023 End: 47-11-8934orjqmvczrsMyevxvge Ball Other no[employer]File Other Start: 50-04-7009Thaihn outpatient visit 25 minutes Nathan KirkG [facility] ClinicStart: 01-08-2023 End: 11-23-0419ckoqxtlwruXG NATHAN BALLFacility:P3Iagss: 12-21-2022 End: 85-02-5102guvyrhmyjyMwlatqyw Ball Other no[employer] Other Start: 42-61-6245Qqbrnnfll encounterBenjamin YelenaG [facility] ClinicStart: 12-20-2022 End: 83-78-6374xcyxiphphiLnqutvoc Ball Other no[employer] Other Start: 00-17-7776Kxtzjutzg encounterBenjamin YelenaG [facility] ClinicStart: 12-14-2022 End: 17-92-2046hjuenfspcpNwrbilkh Ball Other noAud[employer] Other Start: 55-85-7668Mvqdaim encounter procedureBenjamin YelenaG [facility] ClinicStart: 12-04-2022 End: 52-51-0912rndzlsfnwxZdbzz R Murphy MD Work Phone: Hematology/OncologyComment on above:Abnormal SPEP (Primary Dx); Neuropathy - (NOS); Lung nodulesStart: 12-04-2022 End: 21-12-0680Klfrslk encounter procedureLuis Mckenzie MD Work Phone: SANDUSKYStart: 11-23-2022 End: 63-36-7206jeuwwqpkueMbrwella Ball Other [employer] Other Start: 86-86-1838Ctctqavjp encounterBenjaairam KirkG [facility] ClinicStart: 11-16-2022 End: 90-16-4628ckymfzpctyNB NATHAN HATHAWAYFacility:M9Eoiap: 11-14-2022 End: 10-38-7757kwgodoreutWqudfngn Ball Other [employer] Other Start: 58-75-4610Nsbgcj outpatient visit 25 minutes Nathan Hathaway Medical ClinicStart: 09-11-2022 End: 35-78-1842gnwymsclkjUZ NATHAN HATHAWAYFacility:I4Porhe: 88-91-4681Myqogcgup encounterNatcameron Manzanares RNHematology/OncologyComment on above:ResultsStart: 08-28-2022 End: 97-77-1379Spciqqblab hospital visit by physicianArrival Time Radiology Work Phone: Radiology Pet CTComment on above: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]Start: 05-29-2022 End: 12-13-6448Nzfeo (SP) OfficeLuis Mckenzie MD Work Phone: Hematology/OncologyComment on above:Abnormal SPEP (Primary Dx); Neuropathy - (NOS); Disorder of adrenal gland (HCC); Lung nodulesStart: 92-62-9636Aemcdlacq encounterLuis Mckenzie MD Work Phone: Hematology/OncologyComment on above:Lab OrdersStart: 05-04-2022 End: 97-65-4576ulywfmhnlxSC NATHAN HATHAWAYFacility:A9Gpfvn: 40-75-9495Zsgpm health examinationBerno Hathaway Other [employer] Other Procedures DateProcedureProcedure DetailPerforming ClinicianStart: 84-86-7048Vevbq chest X-rayBeron Hathaway DO Work Phone: Start: 81-58-4647Ed soft tissue head & neck real time imge docAminah Esparaz MD Work Phone: Start: 75-08-4553YyutaxkmxqXpctewva Ball DO Work Phone: Start: 07-73-5072No strs tst xers&/or rx cont ecg trcg onlyHolden Rosado BOTTLING ROOM WORKER-[employer] COMMANDING OFFICER Work Phone: Start: 14-99-7405Ynhioca of placement of stent for coronary artery diseaseS/P coronary artery stent placementHolden Rosado BOTTLING ROOM WORKER-[employer] COMMANDING OFFICER Work Phone: Start: 03-67-7021QC angiography of thoraxDO Nathan Hathaway Work Phone: Start: 51-73-5595Mbkhzr scan of lower limb veinsDO Nathan Hathaway Work Phone: Start: 70-52-8393MU Ivus Initial VesselDO Nathan Hathaway Work Phone: Start: 92-53-5251QA LHC & COR AngioDO Nathan Hathaway Work Phone: Start: 27-88-4497ST Stent 1st Vessel LAD DESDO Nathan Hathaway Work Phone: Start: 91-31-2460XF Stent 1st Vessel RCA VALERIDO Nathan Hathaway Work Phone: Start: 54-88-7312Ai abdomen & pelvis w/contrast Maynor Mckenzie MD Work Phone: Start: 16-75-6518Et thorax w/contrast Maynor Mckenzie MD Work Phone: Start: 62-04-7533Sndsz depression screening assessment Luis Mckenzie MD Work Phone: Start: 90-36-2632Vdxks depression screening assessment Luis Mckenzie MD Work Phone: Start: 96-58-2386Dqrsyvhxv for malignant neoplasm of colonBenjamin Ball Other Start: 71-11-4855Erkuucgsn for osteoporosisBenjamin Ball Other Depression screeningBenjamin Ball Other HysterectomyBenjamin E Ball Work Phone: Screening for malignant neoplasm of breastBenjamin Ball Other Screening for malignant neoplasm of breastNathan Hathaway Other Total colonoscopyBeron Hathaway Work Phone: Comment on above:2012; Plan of Treatment DateCare ActivityDetailAuthorStart: 29-04-1827Lqfpxjqt ScreeningDiabetes ScreeningOhioHealth Van Wert Hospitaltart: 32-21-2758Wywqyxsh ScreeningDiabetes Screening [facility]: 79-08-4812Fhkkmzzc ScreeningDiabetes ScreeningOhioHealth Van Wert Hospitaltart: 60-06-2551ZTCDLHMB SCREENDIABETES SCREENOhioHealth Van Wert Hospitaltart: 41-39-9774CIDVBBWX SCREENDIABETES SCREENOhioHealth Van Wert Hospitaltart: 10-27-2025 End: 81-87-3675Kcttvxz encounter sbaudeeeo91/30/2025 2:10 PM EST Office Visit [place] [address] [facility] [address] [place] [phone] Edinson Perry DO [address] [facility] 2, [address] [place] [address] [facility]: 10[facility]07[facility]2025 End: 45-07-9799ioqvepdnqj34/10/2025 3:00 PM EST Visit (SP) Office Hematology/Oncology [address] [place], [place] [phone] Valentin Leonard MD [address] [place] [address] [place] [address] 3 month ELDON with labHematology/OncologyComment on above:3 month ELDON with labStart: 10-07-2025 End: 22-60-8697Xjyfojg encounter qcmmvrymy57/10/2025 2:45 PM EST Office Visit [facility] [address] [place], [place] [address] [address] 3 month ELDON with labNortMcLaren Greater Lansing Hospital LaboratoryComment on above:3 month ELDON with labStart: 98-51-1901EZFTVWAV SCREEN DIABETES SCREENOhioHealth Van Wert Hospitaltart: 52-73-9526Eruuhqp referralGrant Hospital Work Phone: Start: 07-08-2025 End: 87-05-7852fjqlzzwtql72/10/2025 10:00 AM EDT Visit (SP) Office Hematology/Oncology [address] [place] [address] Paolo Casillas APRN.MOTORIZED SQUAD COMMANDING OFFICER [address] [place] [address] Dr Hathaway 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 MGUSHematology/OncologyComment on above:Dr Hathaway wantkadie patient to continue seeing Paolo for MGUSStart: 07-08-2025 End: 43-05-2457Wkbnqfb encounter enukxjyxw98/10/2025 10:00 AM EDT Office Visit [facility] [address] [place] [address] [place] [address] Labs Per January Staff MessageNortMcLaren Greater Lansing Hospital LaboratoryComment on above:Labs Per January Staff MessageStart: 07-06-2025 End: 56-28-7235RVB W Auto Differential panel - BloodCOMPLETE BLOOD COUNT AND DIFFERENTIAL Lab Routine Abnormal SPEP Expected: 07/06/2025, Expires: 10/05/2025 [facility] Work Phone: Comment on above:Expected: 07/06/2025, Expires: 10/05/2025Start: 07-06-2025 End: 96-79-2957Qzitolpwcgldi metabolic 2000 panel - Serum or PlasmaCOMPREHENSIVE METABOLIC PANEL Lab Routine Abnormal SPEP Expected: 07/06/2025, Expires: 10/05/2025levelcritical access hospital ClinicComment on above:Expected: 07/06/2025, Expires: 10/05/2025Start: 07-06-2025 End: 88-00-3512RHJPDQNGGJ PROTEIN, SERUM (BLOOD)MONOCLONAL PROTEIN, SERUM (BLOOD) Lab Routine Abnormal SPEP Expected: 07/06/2025, Expires: 10/05/2025 [facility] HospitalComment on above:Expected: 07/06/2025, Expires: 10/05/2025Start: 07-06-2025 End: 78-07-7212QQEKRSQ ELECTROPHORESIS SERUM W/INTERPPROTEIN ELECTROPHORESIS SERUM W/INTERP Lab Routine Abnormal SPEP Expected: 07/06/2025, Expires: leveland ClinicComment on above:Expected: 07/06/2025, Expires: 10/05/2025 Start: 10-31-1746Vqhijmsno vaccinationInfluenza Vaccine (#1)[facility] Start: 98-02-9404DIOFNFRO SCREENDIABETES SCREENOhioHealth Van Wert Hospitaltart: 05-04-2025 COVID-19 Vaccine ()COVID-19 Vaccine () [facility]: 04-29[facility]2025 End: 91-19-6930Ofchzjh encounter /02/2025 9:30 AM EDT Office Visit [facility] [address] [place] [address] Fercho Tse DO [address] [place] [address] [facility] OPHTStart: 03-17-2025 End: 23-51-7690Axczirl encounter nefangirj97/20/2025 10:45 AM EDT Appointment [place] [address] [place] [phone] [facility]Start: 02-25-2025 End: 70-72-8578Ulvlbau encounter procedureNOMS CI ENTComment on above:Arrived Start: 01-26-2025 End: 87-52-7160Qjqibicqouta / ancillary services bsqcufqwbb08/31/2025 3:00 PM EDT Ancillary Procedure [address] [place] [address] [facility]: 01-12-2025 End: 15-97-2627Iapjxr monitor studyHolter Or Event Programmer Operator Numerical Control Cardiac Services Routine Palpitations Expected: 01/12/2025 (Approximate), Expires: 01/12/2026[facility] Service Area Work Phone: Comment on above:Expected: 01/12/2025 (Approximate), Expires: 01/12/2026Start: 01-12-2025 End: 21-95-3501LA Heart TransthoracicTransthoracic Echo Complete Echocardiography Routine Essential hypertension Palpitations Expected: 0 01/12/2025 (Approximate), Expires: 01/12/2027[facility] Work Phone: Comment on above:Expected: 01/12/2025 (Approximate), Expires: 01/12/2027Start: 11-25-2024 End: 32-86-8968Uoozkzy encounter qfzhqkmum81/28/2025 2:00 PM EST Office Visit [facility] [address] [place] [phone] Reyna Esparza MD [address] [place], [place] [id number] ArrivedNOMS CI ENTComment on above:ArrivedStart: 45-42-4959Klfstbp referralGrant Hospital Work Phone: Start: 85-90-6171XgrnuuevlKettering Health Washington Township Start: 69-08-7012KhgnkhgzwsPjvvvtrrcGeorgetown Behavioral Hospitaltart: 10-29-2024 Advance Directive DiscussionAdvance Directive DiscussionOhioHealth Van Wert Hospitaltart: 10-08-2024 End: 81-59-9781Rqiksiy encounter hrwjcridh41/11/2024 10:40 AM EST Office Visit [place] [address] [facility] [address] [place] [address] Edinson Perry DO [address] [facility] [address] [place] [address] [facility]Start: 96-69-4396Cfepl-19 Vaccine ( season)Covid-19 Vaccine ( season)[facility]: 11-80-7676Kkdcppnul vaccinationCommunity Memorial HospitalStart: 04-21-2024 End: 40-29-0158Zyncq metabolic 2000 panel - Serum or PlasmaBasic Metabolic Panel Lab Routine ASHD (arteriosclerotic heart disease) Expected: 04/21/2024 (Approx imate), Expires: 04/21/2025[facility] Service Area Work Phone: Comment on above:Expected: 04/21/2024 (Approximate), Expires: 04/21/2025Start: 04-21-2024 End: 05-87-5406Jynuotq encounter szieybenz57/24/2024 10:30 AM EDT Office Visit [facility] [address] [facility] [address] [place] [address] Holden Rosado, 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: 03-12-2024 End: 60-87-4171Bsfoybn encounter procedure [place] [facility]: 03-05-2024 End: 22-94-4087Iymsa metabolic 2000 panel - Serum or PlasmaBasic Metabolic Panel Lab Routine Essential hypertension Expected: 03/05/2024 (Approximate), Expires: 03/05/2025[facility] Work Phone: Comment on above:Expected: 03/05/2024 (Approximate), Expires: 03/05/2025Start: 03-05-2024 End: 27-70-2729IF Heart Perfusion W stress and W radionuclide IVNuclear Stress Test Cardiac Nuclear Medicine Routine ASHD (arteriosclerotic heart disease) Expected: 03/05/2024 (Approximate), Expires: 03/05/2026[facility] Service Area Work Phone: Comment on above:Expected: 03/05/2024 (Approximate), Expires: 03/05/2026Start: 62-17-8314FhrldawrerdydvmvCsuiwqjnnpeshrWyfwokqinh Hospitals [facility] ClevelandStart: 18-00-2973Pzrewho Directive DiscussionAdvance Directive DiscussionOhioHealth Van Wert Hospitaltart: 50-68-9500UGK, Provider: Edinson Perry, Status: Pen, Time: 11:20 AMFUV, Provider: Edinson Perry, Status: Pen, Time: 11:20 AM-[facility] 250 DO Work Phone: Start: 06-28-5379WLRZH-19 Vaccine () COVID-19 Vaccine ()[facility]: 82-08-5516Fxmimgakx vaccinationINFLUENZA (#1)[facility]: 05-29-2023 Adult depression screening assessmentDEPRESSION SCREENINGOhioHealth Van Wert Hospitaltart: 54-76-3750TII, Provider: Edinson Perry, Status: Pen, Time: 10:20 AMFUV, Provider: Edinson Perry, Status: Pen, Time: 10:20 AM[facility] 250 DO Work Phone: Start: 46-96-7915KlglxnamiKettering Health Washington Township Start: 87-50-8588Uomtyqib admissionGeorgetown Behavioral Hospitaltart: 60-84-5551LjtjpczmzGeorgetown Behavioral Hospitaltart: 62-47-4345BFOCA-19 VACCINE (6 - Pfizer series)COVID-19 VACCINE (6 - Pfizer series)[facility]: 98-94-0173Gbcgv depression screening assessmentDEPRESSION SCREENINGOhioHealth Van Wert Hospitaltart: 46-29-2726GPQXCKQ DIRECTIVE DISCUSSIONADVANCE DIRECTIVE DISCUSSION [facility]: 04-43-5571GQNJQKNDFK ASSESSMENTDEPRESSION ASSESSMENT [facility]: 65-70-5349EVSXH-19 Vaccine (3 - Pfizer risk series)COVID- 19 Vaccine (3 - Pfizer risk series)[facility]: 24-54-4350Gcomqfkzh vaccinationINFLUENZA (#1)[facility]: 03-25-2022 COVID-19 VACCINE (5 - Booster for Pfizer series)COVID-19 VACCINE (5 - Booster for Pfizer series)[facility]: 40-55-7989MDOAYNJ DIRECTIVE DISCUSSION ADVANCE DIRECTIVE DISCUSSIONOhioHealth Van Wert Hospitaltart: 96-46-1417LVQCCHYUCR ASSESSMENTDEPRESSION ASSESSMENTOhioHealth Van Wert Hospitaltart: 93-53-8171Ktrokcsr Vaccine (3 of 3)Shingrix Vaccine (3 of 3)[facility]: 07-31-9690Yranvd Vaccines (2 of 2)Zoster Vaccines (2 of 2)[facility]: 25-45-0346ACVYHPNW VACCINE (2 of 2)SHINGRIX VACCINE (2 of 2)[facility] Start: 55-55-3168LDD High Risk: (Elderly (60+) or Population) (1 - 1- dose 75+ series)RSV High Risk: (Elderly (60+) or Population) (1 - 1- dose 75+ series)[facility]: 16-57-9168IEP Vaccine (1 - 1-dose 75+ series)RSV Vaccine (1 - 1-dose 75+ series)[facility]: 45-24-0417EMvD/Tdap/Td Vaccines (1 - Tdap)DTaP/Tdap/Td Vaccines (1 - Tdap) [facility]: 13-31-2625Yvjac microalbumin profile DTaP,Tdap,Td Vaccine (1 - Tdap)[facility]: 71-63-3168ZKIA DENSITYBONE DENSITYOhioHealth Van Wert Hospitaltart: 40-08-3198NDTIQQTLYXUE: 65+ (1 - PCV) PNEUMOCOCCAL: 65+ (1 - PCV)[facility]: 32-66-7608Eqtgkvxry for osteoporosisBone Density ScreeningOhioHealth Van Wert Hospitaltart: 11-01-2007Medicare Annual Wellness VisitMedicare Annual Wellness VisitOhioHealth Van Wert Hospitaltart: 94-87-8520TEN patients and/or patients aged 60+ years (1 - 1-dose 60+ series)RSV patients and/or patients aged 60+ years (1 - 1-dose 60+ series)[facility]: 37-06-6208LEeK/Tdap/Td Vaccines (1 - Tdap)DTaP/Tdap/Td Vaccines (1 - Tdap)[facility] Start: 99-86-1406Siyft microalbumin profileDTAP,TDAP,TD (1 - Tdap)[facility]: 00-82-7110Jfhmdyi ScreeningAnxiety ScreeningOhioHealth Van Wert Hospitaltart: 84-62-5677Ahllbgcwmn ScreeningDepression ScreeningOhioHealth Van Wert Hospitaltart: 77-51-5217Fclcipmt mellitus screeningDiabetes ScreeningC[facility] Clinic [facility]: 79-77-6044Dodezenepq measurementCreatinine [facility]: 71-31-5465Dkuuc panelLipid PanelCleveland Clinic Eucl[facility]: 1942Medicare Annual Wellness VisitMedicare Annual Wellness Visit (AWV)[facility]: 1942 Potassium measurementPotassium [facility]: 87-72-9000Rwfnvurkc for osteoporosisBone Density ScanCommunity Memorial HospitalComprehensive metabolic 2000 panel - Serum or PlasmaKettering Health Washington Township End: 85-08-8648Dt abdomen & pelvis w/contrast materialCT ABD/PEL W IVCON Radiology Routine Disorder of adrenal gland (HCC) 1 Occurrences starting 05/29/2022 until 3CMercy [facility] Work Phone: Comment on above:1 Occurrences starting 05/29/2022 until 06/28/2023 End: 77-11-1804EY CHEST W IVCONCT CHEST W IVCON Radiology Routine Lung nodules 1 Occurrences starting 05/29/2022 until 3CMercy [facility] Hospital Work Phone: Comment on above:1 Occurrences starting 05/29/2022 until 3Patient EducationPromedica Flower Hospital Ctr Work Phone: Patient referralPromedica Flower Hospital Ctr Work Phone: End: 91-74-3648AZ Heart TransthoracicCARLSBAD MEDICAL [facility] Service Area Work Phone: Comment on above:Once for 1 Occurrences starting 03/17/2025 until 03/17/2025XR Knee - right 4 ViewsFirelands Regional Medical CenterThedaCare [facility] Immunizations Immunization DateImmunizationNotesCare CqdktsuzOjmzvkhd57-35-5799uusdfbaqa, high dose seasonal, preservative-freeKettering Health [facility] Township09-18-2024 influenza virus vaccine, unspecified formulationPaolo Casillas APRN.CNP Work Phone: [facility] HospitalOpvokl23-71-9425nabahhgbr virus vaccine, unspecified formulationKettering Health [facility] Township10-09-2023influenza, high dose seasonal, preservative-freeBenalberta Hathaway Other [employer] on [employer] Other 11025297-98-3560UHYHW-69 Pfizer (Pediatric)Nathan Hathaway Other [facility]11-18-2022Pfizer COVID-19 Vac Bivalent 30 MCG/0.3ML Intramuscular SuspensionNathan Hathaway Work Phone: [facility]10-14-2022influenza virus vaccine, split virus (incl. purified surface antigen)Nathan Hathaway Other [employer] Other 369004-07-5001hdwjzvkcw virus vaccine, unspecified formulationK[facility]tering Health [facility]04-02-2022COVID-19 mRNA, Comirnaty (Pfizer)DO Nathan Hathaway Work Phone: [facility]04-02-2022COVID-19 PfizerBeron Hathaway Other [facility]10-02-2021COVID-19 vaccine, age 12+ yr (Bontera-BIONTCinchcast - PURPLE [facility])Luis Mckenzie MD Work Phone: [facility] HospitalNigbch41-22-3526hwmjmd vaccine, liveBenjaairam Hathaway Other [facility]09-21-2021influenza, high-dose, quadrivalent vaccine (FLUZONE HIGH DOSE QUADRIVALENT)Luis Mckenzie MD Work Phone: [facility] HospitalWayejq83-00-9899vsooxdtte virus vaccine, split virus (incl. purified surface antigen)Nathan Hathaway Other [employer] Other 09-760316-00-3634cotpqvpnf virus vaccine, unspecified formulationK[facility] Health [facility]07-24-2021zoster vaccine recombinant Luis Mckenzie MD Work Phone: [facility] HospitalQbxskw66-96-5074cqgkjl vaccine, liveBenalberta Hathaway Other [facility]02-20-2021COVID-19 vaccine, age 12+ yr (PFIZER-BIONTECH - PURPLE TOP)Luis Mckenzie MD Work Phone: [facility] HospitalRvztzq88-94-5436XEIEZ-83 Vaccine Moderna - Documentation Purposes OnlyNathan Hathaway Other [facility]01-30-2021COVID-19 vaccine, age 12+ yr (PFIZER-BIONTECH - PURPLE TOP)Luis Mckenzie MD Work Phone: [facility] HospitalNxnbdb77-72-0053pkcdpbpve virus vaccine, split virus (incl. purified surface antigen)Nathan Hathaway Other [employer] Other 10258251-22-6827qorzhxrzc virus vaccine, unspecified formulationK[facility]09-11-2019AS03 adjuvantArrival Radiology Work Phone: [facility] HospitalZnbnbz23-55-0601Ytheopij trivalent influenza vaccine, adjuvanted, preservative Ras Mckenzie MD Work Phone: [facility] HospitalJlvvns23-89-9335ZJ27 adjuvantArrival Radiology Work Phone: [facility] HospitalSowpwq16-13-8485ozzuwubev virus vaccine, split virus (incl. purified surface antigen)Nathan Hathaway Other [employer] Other 10774874-54-0192hzsnbrfap virus vaccine, unspecified formulationK[facility] Health [facility]10-16-2018Seasonal trivalent influenza vaccine, adjuvanted, preservative Ras Mckenzie MD Work Phone: [facility] HospitalSbxigl22-61-4348wdbwjkhuk virus vaccine, split virus (incl. purified surface antigen)Nathan Hathaway Other [facility] [employer] Other 10302341-30-5016cyoltbrlu virus vaccine, unspecified formulationK[facility] Health [facility]10-06-2017influenza, high dose seasonal, preservative-Ras Mckenzie MD Work Phone: [facility] HospitalMvfvfy65-24-6053cpxgiomeg virus vaccine, split virus (incl. purified surface antigen)Nathan Hathaway Other [facility] [employer] Other 09-280407-85-8098thbjminll virus vaccine, unspecified formulationK[facility] Health [facility]11-16-2015pneumococcal conjugate vaccine, 13 valentBenjamin Fransico Other [facility]10-20-2015influenza virus vaccine, split virus (incl. purified surface antigen)Nathan Hathaway Other [facility] [employer] Other 10-013376-50-2428lozywujcq virus vaccine, unspecified formulationK[facility] Health [facility]09-18-2014tetanus and diphtheria toxoids, adsorbed, preservative free, for adult use (5 Lf of tetanus toxoid and 2 Lf of diphtheria toxoid)Nathan Hathaway Other [facility]09-11-2013tetanus and diphtheria toxoids, adsorbed, preservative free, for adult use (5 Lf of tetanus toxoid and 2 Lf of diphtheria toxoid)Nathan Hathaway Other [facility]10-14-2010 pneumococcal polysaccharide vaccine, 23 valentBenjamin Fransico Other [facility] Payers DatePayer CategoryPayerPolicy [id number] supplemental policy (as second payer)AARP [id number] Private Health InsuranceOH[facility] AARP SUPPLEMENT [id number] 2020-Present [phone] [address] [place] [address] Indemnity [id number] Health [id number] 2007MedicareMEDICARE MEDICARE A AND B [id number] 2007-Present [phone] [place] [address] [id number] 2007Medicare [id number] [id number] [id number] 2.16.840.6.997871.5168-20-1942 [id number] 2.16840.1.038879.3.57[id number] 2.16.840.1.651747.3.57[id number] 2.16.840.1.619733.3.57[id number] 2.16.840.1.495926.3.57[id number] 2.16.840.1.431354.3.57[id number] 2.16.840.1.079715.3.57[id number] 2.16840.1.977283.3.57[id number] 2.16840.1.634393.3.57[id number] 2.16.840.1.402373.3.57[id number] 2.16.840.1.682017.3.57[id number] 2.16840.1.564474.3.57[id number] 2.16840.1.460960.3.57[id number] 2.16840.1.470796.3.57[id number] 2.16840.1.067664.3.57[id number] 2.16840.1.950030.3.57[id number] 2.16.840.1.051471.3.57[id number] 2.16.840.1.837144.3.579.2.1246MedicareMedicare [id number] Social History DateTypeDetailFacilityStart: 08-01-2021 End: 23-37-9385Dtkfsip smoking status NHISEx-smokerEast [facility] Hospital End: 31-03-9059Psshvpq of tobacco useCigarette SmokerOhioHealth Van Wert Hospitaltart: 08-01-2021 End: 78-91-2220Hdgwayk use and exposureSmokeless tobacco non-userOhioHealth Van Wert Hospitaltart: 30-09-1106Bix Assigned At BirthNot on fileOhioHealth Van Wert Hospitaltart: 05-12-2022 End: 78-11-4528Svrcoesw to SARS-CoV-2 (event)Not sureEast [facility] Regional Hospital End: 99-57-3582Exphhvg of tobacco useCurrent smokerOhioHealth Van Wert Hospitaltart: 12-04-2022 End: 58-55-0007Nvl Assigned At BirthOhioHealth Van Wert Hospitaltart: 12-04-2022 End: 44-75-9027Ui illicit drug useNo illicit drug useEast [facility] Regional HospitalComment on above:2 coffees in am and 1 coffee at hs;1997;Start: 17-11-4179Gyd Assigned At BirthFeCincinnati Children's Hospital Medical Centertart: 06-04-2023 End: 79-89-6870Iynfukp intakeEx-drinker (finding)[facility]: 77-07-5879Mworx Depression Screening Wtyjqqkjbo2Cnnwyxneu ClinicStart: 12-18-2023 End: 57-38-9643Dxahekl smoking status NHISNever smoked tobacco (finding) [facility]: 03-05-2024 End: 70-25-8138Xqrclwsim beverage intakeLifetime non-drinker (finding)[facility] Work Phone: Start: 09-11-2024 End: 92-17-7285TkfKxkwgc (finding)[facility] Medical Equipment Procedure CodeEquipment CodeEquipment Original TextEquipment IdentifierDatesCL STENT WILLIE FRONTIER 2.5 X 18FDAStart: 56-18-2162IE STENT WILLIE FRONTIER 4.0 X 15 FDAStart: 87-79-8177QP STENT WILLIE FRONTIER 4.0 X 18FDAStart: 86-27-5672IF STENT WILLIE FRONTIER 2.5 X 18FDAStart: 29-39-9556QW STENT WILLIE FRONTIER 4.0 X 15FDA Start: 19-43-1009PK STENT WILLIE FRONTIER 4.0 X 18FDAStart: 18-80-4507WQ STENT WILLIE FRONTIER 2.5 X 18FDAStart: 01-05-9334UT STENT WILLIE FRONTIER 4.0 X 15FDA Start: 57-39-3324OI STENT WILLIE FRONTIER 4.0 X 18FDAStart: 66-43-7381AH STENT WILLIE FRONTIER 2.5 X 18FDAStart: 03-55-0206TT STENT WILLIE FRONTIER 4.0 X 15FDA Start: 76-61-0435TC STENT WILLIE FRONTIER 4.0 X 18FDAStart: 46-34-8881UE STENT WILLIE FRONTIER 2.5 X 18FDAStart: 07-42-4537ST STENT WILLIE FRONTIER 4.0 X 15FDA Start: 20-92-6959WZ STENT WILLIE FRONTIER 4.0 X 18FDAStart: 79-30-8933ER STENT WILLIE FRONTIER 2.5 X 18FDAStart: 14-91-8807UC STENT WILLIE FRONTIER 4.0 X 15FDA Start: 69-70-9765UV STENT WILLIE FRONTIER 4.0 X 18FDAStart: 57-41-7922PJ STENT WILLIE FRONTIER 2.5 X 18FDAStart: 09-91-5965VN STENT WILLIE FRONTIER 4.0 X 15FDA Start: 48-43-2071UF STENT WILLIE FRONTIER 4.0 X 18FDAStart: 99-17-1264SG STENT WILLIE FRONTIER 2.5 X 18FDAStart: 04-32-4446QL STENT WILILE FRONTIER 4.0 X 15FDA Start: 37-02-2498EN STENT WILLIE FRONTIER 4.0 X 18FDAStart: 51-72-3713LM STENT WILLIE FRONTIER 2.5 X 18FDAStart: 15-71-2221WZ STENT WILLIE FRONTIER 4.0 X 15FDA Start: 68-85-5438PT STENT WILLIE FRONTIER 4.0 X 18FDAStart: 52-94-9172ZZ STENT WILLIE FRONTIER 2.5 X 18FDAStart: 98-01-5516BT STENT WILLIE FRONTIER 4.0 X 15FDA Start: 03-47-6791NP STENT WILLIE FRONTIER 4.0 X 18FDAStart: 86-69-9551LL STENT WILLIE FRONTIER 2.5 X 18FDAStart: 80-74-3392CR STENT WILLIE FRONTIER 4.0 X 15FDA Start: 15-46-8826FQ STENT WILLIE FRONTIER 4.0 X 18FDAStart: 98-31-5883ZE STENT WILLIE FRONTIER 2.5 X 18FDAStart: 14-06-0808JZ STENT WILLIE FRONTIER 4.0 X 15FDA Start: 43-87-3111LQ STENT WILLIE FRONTIER 4.0 X 18FDAStart: 28-54-3467HG STENT WILLIE FRONTIER 2.5 X 18FDAStart: 03-49-5501CA STENT WILLIE FRONTIER 4.0 X 15FDA Start: 84-29-8662GN STENT WILLIE FRONTIER 4.0 X 18FDAStart: 47-29-1203NV STENT WILLIE FRONTIER 2.5 X 18FDAStart: 17-82-6169XO STENT WILLIE FRONTIER 4.0 X 15FDA Start: 71-58-3668RU STENT WILLIE FRONTIER 4.0 X 18FDAStart: 66-07-3007LO STENT WILLIE FRONTIER 2.5 X 18FDAStart: 89-27-3307CW STENT WILLIE FRONTIER 4.0 X 15FDA Start: 83-99-9915KZ STENT WILLIE FRONTIER 4.0 X 18FDAStart: 91-47-1562KY STENT WILLIE FRONTIER 2.5 X 18FDAStart: 82-90-4472YK STENT WILLIE [employer]ONTIER 4.0 X 15FDA Start: 72-21-4372CS STENT WILLIE [employer]ONTIER 4.0 X 18FDAStart: 03-09-2023 Goals DatePatient GoalDesired Activity/State Functional Status MmfkInrftpowtkPfikgsVljiwuxn73-79-7939Fluulytmtm statusPatient at Baseline [facility] Work Phone: 1(746) 168-497805163583-17-1063Lvdmnfbzmr statusPatient at Baseline [facility] Work Phone: Mental Status DogqHctryglyvqXbxoeoAwxaqwcq74-07-7169Glnqmcabz functionCognitive Status [facility] Phone: 1(867) 296-118305-064913-89-6111Gsmschrhx functionCognitive Status [facility]: Clinical Notes 05-29-2022 to 07-10-2025 Note Date & [id number] Telephone encounter Note* Telephone Encounter - Yolanda Cobian RN - 07/10/2025 2:11 PM EDT Refer to providers phone encounter for details of follow up/intervention Yolanda Cobian RN [facility]09-12-2025 Miscellaneous Notes* Telephone Encounter - Yolanda [...] Her daughter Marianna with today's lab results. [phone] documented in [facility] encounter[facility] [place] [facility] Telephone encounter Note * Telephone Encounter - Yolanda Cobian RN - 07/10/2025 11:[address] Hathaway's office and spoke with Dayana. I informed her of Mrs Joaquin worsening anemia/renal function and elevated blood proteins (refer to note per Kg Petit PA-C from today). She appreciated the update and will discuss with Dr Hathaway. Yolanda Cobian RN [facility] [place] [facility]09-12-2025 Miscellaneous Notes* Telephone Encounter - Yolanda [...] Hathaway's office Please return the call at [phone] KERRY Menendez documented in this encounterCleveland Jraukw12-67-1615 Telephone encounter Note * Telephone Encounter - Cat Landeros - 07/10/2025 11:[address] Nathan Hathaway's office is calling today regarding Asking the question why labs were repeated on 07/08/2025 when she just had labs drawn on 06/23/2025.Please call Dr Hathaway's office back. Patient has been identified by name and birthdate. Person calling: Dr Nathan Hathaway's office Please return the call at [phone] KERRY Menendez [facility]09-12-2025 Telephone encounter Note* Telephone Encounter - Yolanda Cobian RN - 07/10/2025 9:17 AM EDT Labs still pending. Yolanda Cobian RN [facility]09-10-2025 Telephone encounter Note* Telephone Encounter - Kayla Arriaga - 07/08/2025 11:23 AM EDT Please call Her daughter Marianna with today's lab results. [phone] [facility]09-09-2025 NoteHNO ID: [id number] Author: PAOLO CASILLAS APRN.M[employer]OR[employer]ED [employer] COMMANDING OFFICER Service: ? Author Type: Nurse Practitioner Type: [...] Never Vaping Use Vap (more content not included)...[facility]09-09-2025 History of Present illness Narrative* Paolo Casillas APRN.M[employer]OR[employer]ED [employer] COMMANDING OFFICER - 07/07/2025 5:54 PM EDT PATIENT NAME: [...] 06/23/2025. (Scanned) IgM elevated, M-protein 0.2, and [place]/Lambda ration 10.59. Will repeat labs today. Hemoglobin [...] shortness of breath and was hospitalized at [facility] treated for suspected pneumonia. Apparently it was later felt she had heart disease, and cardiac catheterization revealed severe coronary artery disease. She subsequently underwent stent placement at [facility]. April 2023 she developed severe shortness of breath and was hospitalized at [facility] 05/17/2023with CHF. She [...] which included preparing to see the patient, [id number] patient care, completing clinical documentation, obtaining and/or reviewing separately obtained history, performing a medically appropriate examination, counseling and educating the pat ient/family/caregiver, ordering medications, tests, or procedures, independently interpreting results (not separately reported), and communicating results to the patient/family/caregiver. documented in this encounterEast [place] [facility]09-[facility]25 Telephone encounter Note * Telephone Encounter - Loree Rosado MA - 07/06/2025 9:31 AM EDT Patient coming Sunday07/08/25 for follow up labs. Please add lab orders. Thanks. Loree Rosado MA [facility]07-22-2025 Evaluation note* Diagnosis Onset Date Resolution [...] 9:23amMedicare annual wellness visit, subsequentnoneactiveAugust 2024 9:23am [facility] Work Phone: 1([phone]) 207-426207-22-2025 Evaluation note* Diagnosis Onset Date Resolution Status [...] with preserved ejection fraction (HFpEF)noneactiveSeptember 2024 3:32pm [facility] Work Phone: [phone]) 378-292507-22-2025 Evaluation note* Diagnosis Onset Date Resolution Status Admit Date Acute bronchitis due to other specified organisms noneactiveJuly 2024 3:17pmAcute exacerbation of chronic obstructive airways diseasenoneactiveJuly 2024 3:17pmAnemiaacuteAugust 2024 9:23amASHD (arteriosclerotic heart disease)acuteAugust 2024 9:23amChronic bronchitisacuteAugust 2024 9:23amChronic kidney diseaseacuteAugust 2024 9:23amChronic venous insufficiencyacuteAugust 2024 9:23amEssential hypertensionacuteAugust 2024 9:23amGAD (generalized anxiety disorder)acute [place] 2024 9:23amGastroesophageal reflux disease with esophagitis without [...] with preserved ejection fraction (HFpEF)noneactiveSeptember 2024 3:32pm [facility] Work Phone: 1(358) 284-584605-16-2025 Evaluation note* Diagnosis Onset Date Resolution Status [...] preserved ejection fraction (HFpEF) noneactiveMay 2024 11:21am [facility] Work Phone: [phone] 547-552404-15-2025 History of Present illness Narrative* Reyna Esparza [...] Abnormal cardiovascular stress test 11/24/2024 Adrenal nodule ([facility]) 11/24/2024 Anemia 11/24/2024 ASHD (arteriosclerotic heart disease) ([facility]) 10/17/2023 Atrophic vaginitis 11/24/2024 BMI 33.0-33.9,adult 03/05/2024 Cervical spondylosis with radiculopathy 11/24/2024 Chronic bronchitis ([facility]) 11/24/2024 Chronic heart failure with preserved ejection fraction (HFpEF) ([facility]) 11/24/2024 Chronic obstructive pulmonary disease with (acute) exacerbation ([facility]) 11/24/2024 Chronic venous insufficiency 11/24/2024 COVID 10/17/2023 Elevated serum immunoglobulin free light chain level 11/24/2024 Essential hypertension ([facility]) 10/17/2023 Flash pulmonary edema ([facility]) 11/24/2024 Former smoker 10/17/2023 OMAR (generalized anxiety disorder) ([facility]) 11/24/2024 Gastroesophageal reflux disease with esophagitis without hemorrhage 11/24/2024 Heart failure 11/24/2024 Palpitations 01/12/2025 Resolved Ambulatory Problems Diagnosis Date Noted No Resolved Ambulatory Problems Past Medical History: Diagnosis Date Arthritis Cataract Congestive heart failure (CHF) ([facility]) Coronary artery disease ([facility]) GERD (gastroesophageal reflux disease) Hypercholesteremia ([facility]) Hypertension ([facility]) Peripheral neuropathy Past Surgical History: Procedure Laterality [...] then annually if stable documented in this encounterSullivan County Memorial [id number] Miscellaneous Notes* Telephone Encounter - Loree Rosado MA - 07/06/2025 9:31 AM EDT Patient coming Sunday07/08/25 for follow up labs. Please add lab orders. Thanks. Loree Rosado MA documented in this encounterEast [place] [facility]03-27-2025 Evaluation note* Diagnosis Onset Date Resolution [...] 11:21amSubclinical hypothyroidismacuteMay 2024 11:21amThyroid noduleacuteMay 2024 11:21am [facility] Work Phone: 1([phone]) 543-180403-17-2025 Evaluation + Plan note* Assessment & Plan Note - CINTIA Gallego - 01/12/2025 3:48 PM EDTAssociated Problem(s): Cardiac and Vasculature January 2024 TTE LVEF greater than 55% Biatrial enlargement mild [facility] Work Phone: [phone] 606-247203-17-2025 Miscellaneous Notes* Assessment & Plan Note - [...] heart disease) March 09, 2023 Mid/proximal RCA PCI/Rocky Comfort 4x15mm & 4x18mm Proximal diagonal PCI/Rocky Comfort 2.5 x 18 mm LAD 10% Circumflex [...] hypertension Optimal in office documented in this encounterCommunity [facility] Hospital Work Phone: [phone] 926-262903-17-2025 Evaluation + Plan note* Assessment & Plan Note - CINTIA Gallego - 01/12/2025 3:47 PM EDTAssociated Problem(s): Hyperlipidemia High intensity statin January 2024 HDL 42, cholesterol 158 [facility] Work Phone: [phone] 129-425803-17-2025 Evaluation + Plan note* Assessment & Plan Note - CINTIA Gallego - 01/12/2025 3:47 PM EDTAssociated Problem(s): ASHD (arteriosclerotic heart disease) March 09, 2023 Mid/proximal RCA PCI/Rocky Comfort 4x15mm & 4x18mm Proximal diagonal PCI/Willie 2.5 x 18 mm LAD 10% Circumflex normal LVEF 65% February 2024 MPI ischemia, EF 88% Current daily activity at 4 METS without concerning symptoms [facility] Work Phone: [phone] 536-154703-17-2025 Evaluation + Plan note* Assessment & Plan Note - CINTIA Gallego - 01/12/2025 3:46 PM EDTAssociated Problem(s): Palpitations Reports fairly daily episodes of hearing my heart thumping going into my ears No prior documented A-fib or arrhythmia. Was taken off of carvedilol January 2024 hospitalization due to bradycardia [facility] Work Phone: [phone] 675-353803-17-2025 Evaluation + Plan note* Assessment & Plan Note - CINTIA Gallego - 01/12/2025 3:46 PM EDTAssociated Problem(s): Essential hypertension Optimal in office [facility] Work Phone: [phone] History of Present illness Narrative* CINTIA Gallego [...] RCA PCI/Willie 4x15mm & 4x18mm Proximal diagonal PCI/Rocky Comfort 2.5 x 18 mm LAD 10% Circumflex [...] Echo (RODGERS, diastolic dysfunction) Holden Rosado MSN, BOTTLING ROOM WORKER-MOTORIZED SQUAD COMMANDING OFFICER, PMHNP-[facility] [place], [place] Please excuse any errors in grammar or translation related to this dictation. Voice recognition software was utilized to prepare this document. documented in this [facility] Work Phone: [phone]) 415-717603-17-2025 Instructions* Patient Instructions* CINTIA Gallego - 01/12/2025 [...] Echo (RODGERS, diastolic dysfunction) documented in this [facility] Work Phone: [phone]) 720-733001-28-2025 History of Present illness Narrative* Reyna Esparza MD - 11/25/2024 2:00 PM EST Subjective Patient ID: Lashaun Joaquin is a 84 y.o. female who presents for Thyroid Nodule Pt reports she had a thyroid US after being found to be mildly hypothyroid. US shows an 11mm mixed thyroid nodule. FNA performed that was [place] 1. No family H/O thyroid CA. No radiation exposure. Review of Systems All other systems reviewed and are negative. No family history on file. Active Ambulatory Problems Diagnosis Date Noted Dry eyes 04/28/2024 Epiretinal membrane (ERM) of left eye 04/28/2024 Blepharitis of upper and lower eyelids of both eyes 04/28/2024 Abnormal cardiovascular stress test 11/24/2024 Adrenal nodule ([facility]) 11/24/2024 Anemia 11/24/2024 ASHD (arteriosclerotic heart disease) (CMS/HCC) 10/17/2023 Atrophic vaginitis 11/24/2024 BMI 33.0-33.9,adult 03/05/2024 Cervical spondylosis with radiculopathy 11/24/2024 Chronic bronchitis (CMS/HCC) 11/24/2024 Chronic heart failure with preserved ejection fraction (HFpEF) ([facility]) 11/24/2024 Chronic obstructive pulmonary disease with (acute) exacerbation (CMS/HCC) 11/24/2024 Chronic venous insufficiency 11/24/2024 COVID 10/17/2023 Elevated serum immunoglobulin free light chain level 11/24/2024 Essential hypertension (CMS/HCC) 10/17/2023 Flash pulmonary edema (CMS/HCC) 11/24/2024 Former smoker 10/17/2023 OMAR (generalized anxiety disorder) ([facility]) 11/24/2024 Gastroesophageal reflux disease with esophagitis without [...] starting in late December documented in this encounterSullivan County Memorial [id number] Chief complaint+Reason for visit Narrative* Chief Complaint [...] 10:20am Thyroid nodule December 16, 2024 10:20am [facility] Work Phone: [phone] 297-140801-20-2025 Chief complaint+Reason for visit Narrative * Chief [...] knee pain January 22, 2025 9:5 1am [facility] Work Phone: [phone] 594-611801-20-2025 Evaluation note* Diagnosis Onset Date Resolution Status Admit Date Thyroid nodule acuteJanuary 2024 9:45amASHD (arteriosclerotic heart disease)acuteFebruary 2024 10:20amChronic bronchitisacuteFebruary 2024 10:20amChronic heart failure with preserved ejection fraction (HFpEF)acuteFebruary 2024 10:20amChronic kidney diseaseacuteFebruary 2024 10:20amChronic venous insufficiencyacuteFebruary 2024 10:20amEssential hypertensionacuteFebruary 2024 10:20amSubclinical hypothyroidismacuteFebruary 2024 10:20am Thyroid noduleacuteFebruary 2024 10:20am [facility] Work Phone: [phone] Evaluation note* Diagnosis Onset Date Resolution Status Admit Date Thyroid nodule acuteJanuary 2024 9:45amASHD (arteriosclerotic heart disease)acuteFebruary 2024 10:20amChronic bronchitisacuteFebruary 2024 10:20amChronic heart failure with preserved ejection fraction (HFpEF)acuteFebruary 2024 10:20amChronic kidney diseaseacuteFebruary 2024 10:20amChronic venous insufficiencyacuteFebruary 2024 10:20amEssential hypertensionacuteFebruary 2024 10:20amSubclinical hypothyroidismacuteFebruary 2024 10:20am Thyroid noduleacuteFebruary 2024 10:20amChronic kidney diseaseacuteMarch 2024 9:51amNocturnal leg crampsacuteMarch 2024 9:51amRight knee pain acuteMarch 2024 9:51am [facility] Work Phone: 1([phone]) 684-176612-11-2024 History of Present illness Narrative* Edinson Perry, [...] diastolic heart failure. She was hospitalized at [facility] we were not involved in this. Her medications were changed, cluck carvedilol was discontinued and Entresto was initiated. She has supranormal left ventricular function with ejection fraction of 88% and normal perfusion scan February 2023. She did undergo primary PCI proximal RCA and diagonal branch in February 2023 for subsequentnon-ST elevation [place] event with preserved LV function. She is [...] exam, discussion and plan. documented in this [facility] Work Phone: 1(660) 550-444112-11-2024 Instructions* Patient Instructions* Racquel Olivera LPN - [...] Provided instructions on exercise. documented in this [facility] Work Phone: 1(830) 294-568311-14-2024 Evaluation note* Diagnosis Onset Date Resolution Status Admit Date Anemia acuteNovember 2023 10:16amASHD (arteriosclerotic heart disease)acute September 11, 2024 10:16amChronic bronchitisacuteNovember 2023 10:16am Chronic heart failure with preserved ejection fraction (HFpEF)acuteNov2023 10:16amChronic venous insufficiencyacuteNovember 2023 10:16am Essential hypertensionacuteNovember 2023 10:16amGAD (generalized anxiety disorder)acuteSeptember 11, 2024 10:16amHypercholesterolemiaacuteNovember 2023 10:16amSubclinical hypothyroidismacuteNovember 2023 10:16am [facility] Work Phone: [phone] 951-579511-14-2024 Evaluation note* Diagnosis Onset Date Resolution Status Admit Date Anemia acuteNovember 2023 10:16amASHD (arteriosclerotic heart disease)acute September 11, 2024 10:16amChronic bronchitisacuteNovember 2023 10:16am Chronic heart failure with preserved ejection fraction (HFpEF)acuteSeptember 11, 2024 10:16amChronic venous insufficiencyacuteNovember 2023 10:16am Essential hypertensionacuteNovember 2023 10:16amGAD (generalized anxiety disorder)acuteSeptember 11, 2024 10:16amHypercholesterolemiaacuteNovember 2023 10:16amSubclinical hypothyroidismacuteNovember 2023 10:16amThyroid noduleacuteJanuary 2024 9:45am [facility] Work Phone: 1(513) 822-516806-25-2024 Evaluation + Plan note* Assessment & Plan Note - CINTIA Gallego - 04/22/2024 11:58 AM EDTAssociated Problem(s): BMI 32.0-32.9,adult Reviewed the merits of healthy lifestyle choices on overall cardiovascular health. [facility] Work Phone: [phone]) 604-401106-25-2024 Evaluation + Plan note* Assessment & Plan Note - CINTIA Gallego - 04/22/2024 11:58 AM EDTAssociated Problem(s): Hyperlipidemia High intensity statin January 2024 HDL 42, cholesterol 158 [facility] Work Phone: [phone] 957-995106-25-2024 Evaluation + Plan note* Assessment & Plan Note - CINTIA Gallego - 04/22/2024 11:58 AM EDTAssociated Problem(s): Essential hypertension Optimal in the office [facility] Work Phone: [phone] 382-313306-25-2024 Evaluation + Plan note* Assessment & Plan Note - CINTIA Gallego - 04/22/2024 11:58 AM EDTAssociated Problem(s): ASHD (arteriosclerotic heart disease) March 09, 2023 Mid/proximal RCA PCI/Willie 4x15mm & 4x18mm Proximal diagonal PCI/Rocky Comfort 2.5 x 18 mm LAD 10% Circumflex normal LVEF 65% February 2024 MPI ischemia, EF 88% Current daily activity at 4 METS without concerning symptoms [facility] Work Phone: [phone] 837-133206-25-2024 Miscellaneous Notes* Assessment & Plan Note - [...] heart disease) March 09, 2023 Mid/proximal RCA PCI/Rocky Comfort 4x15mm & 4x18mm Proximal diagonal PCI/Rocky Comfort 2.5 x 18 mm LAD 10% Circumflex normal LVEF 65% February 2024 MPI ischemia, EF 88% Current daily activity at 4 METS without concerning symptoms documented in this [facility] Work Phone: [phone] 399-702506-24-2024 History of Present illness Narrative* CINTIA Gallego [...] Dr. Perry 6 months Holden Rosado MSN, BOTTLING ROOM WORKER-MOTORIZED SQUAD COMMANDING OFFICER, PMHNP-[facility] Please excuse any errors in grammar or translation related to this dictation. Voice recognition software was utilized to prepare this document. documented in this encounterUnK[facility] Work Phone: [phone]) 845-142306-24-2024 Instructions* Patient Instructions* CINTIA Gallego - 04/21/2024 [...] Dr. Perry 6 months documented in this encounterUnK[facility] Work Phone: [phone] 829-772405-09-2024 Evaluation + Plan note* Assessment & Plan Note - CINTIA Gallego - 03/06/2024 10:42 AM EDTAssociated Problem(s): BMI 32.0-32.9,adult Reviewed the merits of healthy lifestyle choices on overall cardiovascular health. [facility] Work Phone: [phone]) 535-195405-09-2024 Evaluation + Plan note* Assessment & Plan Note - CINTIA Gallego - 03/06/2024 10:42 AM EDTAssociated Problem(s): Hyperlipidemia High intensity statin January 2024 HDL 42, cholesterol 158 [facility] Work Phone: 1([phone]) 981-848005-09-2024 Miscellaneous Notes* Assessment & Plan Note - [...] RCA PCI/Willie 4x15mm & 4x18mm Proximal diagonal PCI/Rocky Comfort 2.5 x 18 mm LAD 10% Circumflex normal LVEF 65% documented in this encounterUnKettering [facility] [place] Work Phone: [phone]) 521-982805-09-2024 Evaluation + Plan note* Assessment & Plan Note - CINTIA Gallego - 03/06/2024 10:41 AM EDTAssociated Problem(s): Essential hypertension Optimal in office [facility] Work Phone: [phone] 431-272305-09-2024 Evaluation + Plan note* Assessment & Plan Note - CINTIA Gallego - 03/06/2024 10:41 AM EDTAssociated Problem(s): ASHD (arteriosclerotic heart disease) March 09, 2023 Mid/proximal RCA PCI/Rocky Comfort 4x15mm & 4x18mm Proximal diagonal PCI/Rocky Comfort 2.5 x 18 mm LAD 10% Circumflex normal LVEF 65% [facility] Work Phone: [phone] 197-132705-08-2024 History of Present illness Narrative* CINTIA Gallego - 03/05/2024 11:30 AM EDT Chief Complaint I am just not feeling good Reason for Visit Patient presents to the office today for outpatient follow-up for hospital follow-up. Last evaluated in clinic by Dr. Perry September 2023. January 2024: Hospitalized at [facility] due to accelerated hypertension and bradycardia. She was seen by [place] [facility]ology. Inpatient echo showed EF greater than [...] heart disease) March 09, 2023 Mid/proximal RCA PCI/Rocky Comfort 4x15mm & 4x18mm Proximal diagonal PCI/Willie 2.5 [...] contact the office if new symptoms arise. TEST PREPARATION TUTOR after testing Holden Rosado MSN, BOTTLING ROOM WORKER-MOTORIZED SQUAD COMMANDING OFFICER, PMHNP-[facility] Please excuse any errors in grammar or translation related to this dictation. Voice recognition software was utilized to prepare this document. documented in this encounterCommunity Memorial Hospital Work Phone: [phone] 507-147705-08-2024 Instructions* Patient Instructions* CINTIA Gallego - 03/05/2024 [...] contact the office if new symptoms arise. TEST PREPARATION TUTOR after testing documented in this encounterCommunity Memorial Hospital Work Phone: [phone]) 369-925601-30-2024 Evaluation note* Encounter Date Diagnosis Assessment Notes Treatment Notes Treatment Clinical Notes Oct, Primary insomnia (ICD-10 - F51.0 1) Style on Screen Other 01-05-2024 Evaluation note* Encounter Date Diagnosis [...] in remission (ICD-10 - F17.211) Continue abstinence Style on Screen Other 12-05-2023 Evaluation note* Encounter Date Diagnosis [...] and feet daily for blisters and ulcerations. Style on Screen Other 11-29-2023 Evaluation note* Encounter Date Diagnosis Assessment Notes Treatment Notes Treatment Clinical Notes Aug, Chronic venous insufficiency (IC D-10 - I87.2) Style on Screen Other 11-24-2023 Evaluation note* Encounter Date Diagnosis Assessment Notes Treatment Notes Treatment Clinical Notes Aug, Subacute cough (ICD-10 - R05.2) Aug,yspnea on exertion (ICD-10 - R06.09) Style on Screen Other 11-20-2023 Evaluation note* Encounter Date Diagnosis Assessment Notes Treatment Notes Treatment Clinical Notes Aug, Chronic venous insufficiency (IC D-10 - I87.2) Style on Screen Other 11-16-2023 Evaluation note* Encounter Date Diagnosis Assessment Notes Treatment Notes Treatment Clinical Notes Aug, Chronic venous insufficiency (IC D-10 - I87.2) Style on Screen Other 11-14-2023 Evaluation note* Encounter Date Diagnosis Assessment Notes Treatment Notes Treatment Clinical Notes Aug, Acute bronchitis due to other sp ecified organisms (ICD-10 - J20.8) Instructed to use Robitussin or Mucinex for cough, saline or Flonase NS for congestion, Tylenol forpain and fever. Aug,hronic obstructive pulmonary disease with (acute) exacerbation (ICD-10 - J44.1)Begin using EDEL as needed to mobilize secretions. Style on Screen Other 10-19-2023 Evaluation note* Encounter Date Diagnosis Assessment Notes Treatment Notes Treatment Clinical Notes Jul, Aphthous ulcer (ICD-10 - K12.0) Style on Screen Other 09-20-2023 Evaluation note* Encounter Date Diagnosis Assessment Notes Treatment Notes Treatment Clinical Notes Jun, Dysuria (ICD-10 - R30.0) Style on Screen Other 09-19-2023 Evaluation note* Encounter Date Diagnosis Assessment Notes Treatment Notes Treatment Clinical Notes Jun, Dysuria (ICD-10 - R30.0) Style on Screen Other 08-28-2023 Evaluation note* Encounter Date Diagnosis Assessment Notes Treatment Notes Treatment Clinical Notes May, Chronic venous insufficiency (IC D-10 - I87.2) Style on Screen Other 08-24-2023 Evaluation note* Encounter Date Diagnosis Assessment Notes Treatment Notes Treatment Clinical Notes May, Primary insomnia (ICD-10 - F51.0 1) Style on Screen Other 08-21-2023 Evaluation note* Encounter Date Diagnosis Assessment Notes Treatment Notes Treatment Clinical Notes May, Diastolic hypertension (ICD-10 - I10) Style on Screen Other 08-18-2023 Evaluation note* Encounter Date Diagnosis Assessment Notes Treatment Notes Treatment Clinical Notes May, Primary hypertension (ICD-10 - I 10) Style on Screen Other 08-18-2023 Evaluation note* Encounter Date Diagnosis Assessment Notes Treatment Notes Treatment Clinical Notes May, Diastolic hypertension (ICD-10 - I10) Style on Screen Other 08-11-2023 Evaluation note* Encounter Date Diagnosis [...] and feet daily for blisters and ulcerations. Style on Screen Other 08-09-2023 Miscellaneous Notes* Telephone Encounter - [...] can further discuss then. documented in [facility] encounterEast [place] [facility]08[facility] History of Present illness Narrative* Luis Mckenzie MD - 06/04/2023 7:38 AM EDT PATIENT NAME: Lashaun Joqauin DATE: 06/04/2023 PRIMARY CARE PHYSICIAN: Nathan Hathaway, [...] breath and was hospitalized at [facility] and treated for suspected pneumonia. Apparently it was later felt she had heart disease, and cardiac catheterization revealed severe coronary artery disease. She dumont bsequently underwent stent placement at [facility]. Apparently her shortness [...] shortness of breath [facility] [facility] treated for suspected pneumonia. Apparently it was later felt she had heart disease, and cardiac catheterization revealed severe coronary artery disease. She subsequently underwent stent placement at [facility]. April 2023 she developed severe shortness of breath and was hospitalized at [facility] 05/17/2023with CHF. She [...] MD CC: Dr. Perry documented [facility]* Encounter Date Diagnosis Assessment [...] dependence, cigarettes, in remission (ICD-10 - F17.211) Style on Screen Other 07-21-2023 Discharge summary Author Lj Ryan [facility] May 18, 2023 11:44amNote Date/TimeJuly 2022 11:[place] [address] Discharge Summary Signed Patient: Lashaun Joaquin MR#: [id number] : 1940 Acct:[id number] Age/Sex: 82 / F Adm Date: 3 Loc: 3T Room: [address] [place] [address]: Lj Ryan DO Copies to: [...] Sodium 142, Potassium 4.0, Chloride 103, Carbon Likfblq45.5, Anion Gap 12.5, BUN 21, Creatinine 1.37 H, Est GFR (CKD-EPI) 39.034, Glucose 94, Calcium 8.9,Phosphorus 5.3, Magnesium 2.1 05/18/23 05:58: Corrected WBC 6.0, Uncorrected WBC Count 6.0, RBC 3.21 L, Hgb 9.7 L, Hct 28.2 L, MCV 87.7, MCH 30.2, MCHC 34.4, RDW 14.1, Plt Count 314, MPV 7.8, Neut % (Auto) 73.6, Lymph % (Auto) 15.1, [place] % (Auto) 8.7, Eos % (Auto) 1.9, Baso % (Auto) 0.7, Nucleat RBC Rel Count 0.1, Neut # (Auto)4.4, Lymph # (Auto) 0.9 L, [place] # (Auto) 0.5, Eos # (Auto) 0.1, [...] signed by Lj Ryan DO> 05/18/23 1144 [facility] Work Phone: 1(246) 950-657907-20-2023 History and physical note Author Lj Ryan [facility] May 17, 2023 3:56pmNote Date/TimeJuly 2022 3:49[place] [address] Hospitalist H&P Signed Patient: Lashaun Joaquin MR#: [id number] : 1940 Acct:[id number] Age/Sex: 82 / F Adm Date: 3 Loc: Room: [address] [place] [address] Type: ADM INOo Attending Dr: Lj Ryan [...] negative unless noted below or in HPI [facility] Medical History (Updated 05/17/23 @ [...] % (Auto) 9.3 % (.) 05/17/23 10:25 [place] % (Auto) 5.5 % (.) 05/17/23 10:25 Eos % (Auto) 0.5 % (.) 05/17/23 10:25 Baso % (Auto) 0.5 % (.) 05/17/23 10:25 Nucleat RBC Rel Count 0.0 /100 WBC (0-0.5) 05/17/23 10:25 Neut # (Auto) 8.6 x10E3/uL (1.8-7.7) H 05/17/23 10:25 Lymph # (Auto) 1.0 x10E3/uL (1.00-4.8) 05/17/23 10:25 [place] # (Auto) 0.6 x10E3/uL (0.0-0.8) 05/17/23 10:25 [...] 1 Documented By: Lj Ryan DO 05/17/23 [id number] Signed By: <Electronically signed by Lj Ryan DO> 05/17/23 9540 [facility] Work Phone: 1(328) 116-208707-19-2023 Evaluation note* Encounter Date Diagnosis Assessment Notes [...] index [BMI] 33.0-33.9, adult (ICD-10 - Z68.33) Style on Screen Other 07-12-2023 Evaluation note* Encounter Date Diagnosis [...] dependence, cigarettes, in remission (ICD-10 - F17.211) Style on Screen Other 06-29-2023 Evaluation note* Encounter Date Diagnosis Assessment Notes Treatment Notes Treatment Clinical Notes Mar, Paronychia of finger of right gagnon nd (ICD-10 - L03.011) Style on Screen Other 06-29-2023 Evaluation note* Encounter Date Diagnosis [...] and healthy diet. Mar,aresthesias (ICD-10 - R20.2) Style on Screen Other 06-21-2023 Evaluation note* Encounter Date Diagnosis [...] Mucinex for clearing of secretions, wheezing. Consider DEEL Mar,nemia, unspecified type (ICD-10 - D64.9)Chronic due to inflammation. f/u Hematology Mar,Sinus bradycardia (ICD-10 - R00.1)Presently on lowest dose of Coreg. Continue for now. Mar,dverse effect of drug, initial encounter (ICD-10 - T50.905A)Known ADR of Brilinta is SOB. Superior in prevening restenosis post PCI/stent placement. Continue for 12 months Style on Screen Other 06-21-2023 Evaluation note* Encounter Date Diagnosis Assessment Notes Treatment Notes Treatment Clinical Notes Mar, Chronic bronchitis, simple (ICD- 10 - J41.0) Style on Screen Other 05-30-2023 Evaluation note* Encounter Date Diagnosis Assessment Notes Treatment Notes Treatment Clinical Notes February, Paresthesias (ICD-10 - R20.2) Style on Screen Other 05-18-2023 Evaluation note* Encounter Date Diagnosis [...] Titrate Gabapentin and monitor for fluid retention Style on Screen Other 05-08-2023 Evaluation note* Encounter Date Diagnosis Assessment Notes Treatment Notes Treatment Clinical Notes February, Primary hypertension (ICD-10 - I 10) February,hronic venous insufficiency (ICD-10 - I87.2) Style on Screen Other 04-19-2023 Evaluation note* Encounter Date Diagnosis [...] pain, change in appetite or bowel habits Style on Screen Other 04-16-2023 Evaluation note* Encounter Date Diagnosis Assessment Notes Treatment Notes Treatment Clinical Notes Jan, Essential hypertension (ICD-10 - I10) ECHOCARDIOGRAM - 01/2023 1. LVEF is 65%. 2. Normal right ventricular size and systolic function, elevated RVSP 3. Grade 2 diastolic dysfunction. 4. Mild to moderate mitral regurgitation. Jan,ulmonary hypertension (ICD-10 - I27.20) Jan,cute on chronic diastolic heart failure (ICD-10 - I50.33) Style on Screen Other 04-07-2023 Evaluation note* Encounter Date Diagnosis [...] E78.01)Diet and exercise with continued statin therapy. Style on Screen Other 02-23-2023 Evaluation note* Encounter Date Diagnosis Assessment Notes Treatment Notes Treatment Clinical Notes Nov, Primary insomnia (ICD-10 - F51.0 1) Style on Screen Other 02-16-2023 Evaluation note* Encounter Date Diagnosis [...] mammogram for breast cancer (ICD-10 - Z12.31) Style on Screen Other 02-06-2023 History of Present illness Narrative* [...] PCP. Luis Mckenzie MD documented [facility]* Encounter Date Diagnosis Assessment [...] or drinking prior to bedtime. Weight loss. [employer] Other 11-01-2022 Miscellaneous Notes* Telephone Encounter - [...] in November MARBIN Freeman documented in [facility]10-31-[facility]22 History of Present illness Narrative* Nancy [...] 28, 2022 12:49 PM documented in this encounterEast [facility]08-01-2022 History of Present illness Narrative* Luis [...] PCP. Luis Mckenzie [facility] N[facility] - Reported * LASHAUN JOAQUIN is being seen for a consultation for abnormal test(s) results. * 82-year-old female seen in cardiology consultation at the request of Dr. Natalio hathaway for recent episode of respiratory distress, what sounds like congestive heart failure associated with accelerated hypertension, was admitted to [facility] briefly, diuresed approximately 14 pounds with diuretics. [...] and proceed with heart cath this Sunday -[facility] [address] DO Work Phone: Evaluation [...] of lung field documented in this encounter [facility] HospitalEvaluation noteNo InformationNort Eduora Other Evaluation noteNo assessment information available [facility] Work Phone: Evaluation note* Diagnosis Onset Date Resolution Status Flash pulmonary edema acuteHeart failureacuteHypertensionacuteHypertensive emergencyacuteHypoxiaacute [facility] Work Phone: Evaluation note* Diagnosis Abnormal SPEP- Primary Other nonspecific findings on examination of blood Anemia, unspecified type Neuropathy - (NOS) Heart disease Heart disease, unspecified documented [facility] this encounter [facility]* Diagnosis Onset Date Resolution Status ASHD (arteriosclerotic heart disease) acuteChronic diastolic heart failureacuteChronic venous insufficiencyacute Elevated cholesterolacuteEssential hypertensionacuteGAD (generalized anxiety disorder)acuteGastroesophageal reflux disease with esophagitis without hemorrhageacuteMGUS (monoclonal gammopathy of unknown significance)acute [facility] Work Phone: Evaluation note* Diagnosis Onset Date Resolution Status ASHD (arteriosclerotic heart disease) acuteChronic diastolic heart failureacuteChronic venous insufficiencyacute Elevated cholesterolacuteEssential hypertensionacuteGAD (generalized anxiety disorder)acuteGastroesophageal reflux disease with esophagitis without hemorrhageacuteMGUS (monoclonal gammopathy of unknown significance)acuteMedicare annual wellness visit, subsequentnoneactiveEustachian tube dysfunctionacute Right otitis mediaacute [facility] Work Phone: Evaluation note* Diagnosis ASHD (arteriosclerotic heart disease)- Primary Coronary atherosclerosis of unspecified type of vessel, [place] or graft Essential hypertension Unspecified essential hypertension Mixed hyperlipidemia BMI 32.0-32.9,adult documented in this encounter [facility] Work Phone: Evaluation note* Diagnosis Onset Date Resolution Status ASHD (arteriosclerotic heart disease) acuteChronic diastolic heart failureacuteChronic venous insufficiencyacute Elevated cholesterolacuteEssential hypertensionacuteGAD (generalized anxiety disorder)acuteGastroesophageal reflux disease with esophagitis without hemorrhageacuteMGUS (monoclonal gammopathy of unknown significance)acuteMedicare annual wellness visit, subsequentnoneactiveEustachian tube dysfunctionacute Right otitis mediaacuteASHD (arteriosclerotic heart disease)acuteChronic diastolic heart failureacuteChronic venous insufficiencyacuteEssential hypertensionacuteGAD (generalized anxiety disorder)acuteSubclinical hypothyroidismacute [facility] Work Phone: Evaluation note* Diagnosis ASHD (arteriosclerotic heart disease) Coronary atherosclerosis of unspecified type of vessel, [place] or graft documented in this encounter [facility] Work Phone: Evaluation note* Diagnosis Onset Date Resolution Status Anemia acuteASHD (arteriosclerotic heart disease)acuteChronic diastolic heart failure acuteChronic venous insufficiencyacuteEssential hypertensionacuteGAD (generalized anxiety disorder)acuteSubclinical hypothyroidismacute [facility] Work Phone: Evaluation note* Diagnosis 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 Lung nodules Other nonspecific abnormal finding of lung field documented [facility] this [facility]* Diagnosis Onset Date Resolution Status Admit Date Anemia acuteNovember 2023 10:16amASHD (arteriosclerotic heart disease)acute November 2023 10:16amChronic bronchitisacuteNovember 2023 10:16am Chronic heart failure with preserved ejection fraction (HFpEF)acuteNov2023 10:16amChronic venous insufficiencyacuteNovember 2023 10:16am Essential hypertensionacuteNovember 2023 10:16amGAD (generalized anxiety disorder)acuteNov2023 10:16amHypercholesterolemiaacuteNovember 2023 10:16amSubclinical hypothyroidismacuteNovember 2023 10:16am [facility] Work Phone: Evaluation note* Diagnosis Essential hypertension- Primary Unspecified essential hypertension ASHD (arteriosclerotic heart disease) Coronary atherosclerosis of unspecified type of vessel, [place] or graft Mixed hyperlipidemia BMI 32.0-32.9,adult documented in this encounter [facility] Work Phone: Evaluation note* Diagnosis ASHD (arteriosclerotic heart disease)- Primary Coronary atherosclerosis of unspecified type of vessel, [place] or graft Essential hypertension Unspecified essential hypertension Mixed hyperlipidemia BMI 32.0-32.9,adult Essential hypertension- Primary Unspecified essential hypertension ASHD (arteriosclerotic heart disease) Coronary atherosclerosis of unspecified type of vessel, [place] or graft Mixed hyperlipidemia BMI 32.0-32.9,adult ASHD (arteriosclerotic heart disease) Coronary atherosclerosis of unspecified type of vessel, [place] or graft Essential hypertension Unspecified essential hypertension BMI 33.0-33.9,adult Former smoker Personal history of tobacco use, presenting hazards to health S/P PTCA (percutaneous transluminal coronary angioplasty) Postsurgical percutaneous transluminal coronary angioplasty status Mixed hyperlipidemia Coronary arteriosclerosis after percutaneous transluminal coronary angioplasty (PTCA) documented in this encounter [facility] Work Phone: Evaluation note* Diagnosis Thyroid nodule (CMS/HCC)- Primary Nontoxic uninodular goiter [facility] Diagnosis ASHD (arteriosclerotic heart disease)- Primary Coronary atherosclerosis of unspecified type of vessel, [place] or graft Essential hypertension Unspecified essential hypertension Mixed hyperlipidemia BMI 32.0-32.9,adult Essential hypertension- Primary Unspecified essential hypertension ASHD (arteriosclerotic heart disease) Coronary atherosclerosis of unspecified type of vessel, [place] or graft Mixed hyperlipidemia BMI 32.0-32.9,adult BMI 33.0-33.9,adult- Primary Essential hypertension Unspecified essential hypertension Palpitations ASHD (arteriosclerotic heart disease) Coronary atherosclerosis of unspecified type of vessel, [place] or graft Mixed hyperlipidemia documented in this encounter [facility] Work Phone: Evaluation note* Diagnosis Nontoxic multinodular goiter (CMS/HCC)- Primary Nontoxic multinodular goiter [facility] Diagnosis ASHD (arteriosclerotic heart disease)- Primary Coronary atherosclerosis of unspecified type of vessel, [place] or graft Essential hypertension Unspecified essential hypertension Mixed hyperlipidemia BMI 32.0-32.9,adult Essential hypertension- Primary Unspecified essential hypertension ASHD (arteriosclerotic heart disease) Coronary atherosclerosis of unspecified type of vessel, [place] or graft Mixed hyperlipidemia BMI 32.0-32.9,adult BMI 33.0-33.9,adult- Primary Essential hypertension Unspecified essential hypertension Palpitations ASHD (arteriosclerotic heart disease) Coronary atherosclerosis of unspecified type of vessel, [place] or graft Mixed hyperlipidemia Essential hypertension Unspecified essential hypertension Palpitations documented in this encounter [facility] Work Phone: Evaluation note* Diagnosis Abnormal SPEP- Primary Other nonspecific findings on examination of blood documented [facility] this [facility]* Diagnosis Abnormal SPEP- Primary Other nonspecific findings on examination of blood Primary hypertension Unspecified essential hypertension Hyperlipidemia, unspecified hyperlipidemia type Heart disease Heart disease, unspecified Edema, unspecified type 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 Anemia in other chronic diseases classified elsewhere documented in this encounter [facility] general Narrative - Reported* Type Description Date [...] History MalaiseMedical HistoryExogenous obesityMedical HistoryAnemiaSurgical History catarac [id number] [id number] Historysee surgical history Style on Screen Other History general Narrative - Reported* Type [...] History MalaiseMedical HistoryExogenous obesityMedical HistoryAnemiaSurgical History catarac [id number] [id number] HistoryPCI/stent RCA and diagonal br/2022Hospitalization Historysee surgical history Style on Screen Other Hospital Discharge instructions Additional Instructions Please [...] your blood pressure in the hospital.[facility] Work Phone: Hospital Discharge instructionsAmbulatory Orders* Referral to ENT Time Frame: 11/19/24, Location: None Selected [facility] Work Phone: Reason for referral (narrative)* Consultation (Routine) - AuthorizedSpecialtyDiagnoses / ProceduresReferred By Contact Referred To ContactCardiology Diagnoses ASHD (arteriosclerotic heart disease) Procedures Follow Up In Cardiology Holden Rosado APRN-CNP [address] [facility], [address] [address] Referral IDStatusReasonStart DateExpiration DateVisits RequestedVisits [id number] * Cardiac Stress Testing (Routine) - Pending ReviewSpecialtyDiagnoses / ProceduresReferred By ContactReferred To ContactRadiology Diagnoses ASHD (arteriosclerotic heart disease) Procedures Nuclear Stress Test CHG MYOCARDIAL SPECT MULTIPLE STUDIES Holden Rosado APRN-CNP [address] [place] [address], [address] [address] Referral IDStatusReasonStart DateExpiration DateVisits RequestedVisits [id number] Review [facility] Work Phone: Recpxh for referral (narrative)* Consultation (Routine) - AuthorizedSpecialtyDiagnoses / ProceduresReferred By Contact Referred To ContactCardiology Diagnoses ASHD (arteriosclerotic heart disease) Procedures Follow Up In Cardiology Holden Rosado APRN-CNP [address] [facility] [address], [address] [address] Referral IDStatusReasonStart DateExpiration DateVisits RequestedVisits [id number]/24/20246/ [facility] Work Phone: Reason for referral (narrative)No reason for referral information availableGrant Hospital Work Phone: Reason for visit Narrative* CV Imaging (Routine) - AuthorizedSpecialtyDiagnoses / ProceduresReferred By ContactReferred To ContactCardiology Diagnoses Essential hypertension Palpitations Procedures Transthoracic Echo Complete ME ECHO TTHRC R-T 2D W/WOM-MODE COMPL SPEC&COLR D Holden Rosado APRN-CNP [address] [place] [address], [address] [address] Phone: tel: fax: Referral IDStatusReasonStart DateExpiration DateVisits RequestedVisits [id number] Perform Procedure [facility] Work Phone: Advance Directives TypeDate RecordedPatient [...] COMPUTED TOMOGRAPHY THORAX W/CONTRAST Luis Mckenzie MD [address] [place] [address] [place] [address] Ct Imaging Referral IDStatusReasonStart DateExpiration DateVisits RequestedVisits [id number] Auto-Generated Referral /[id number] / ProceduresReferred By ContactReferred To ContactCT IMAGING Diagnoses Disorder of adrenal gland (HCC) Procedures CT ABD/PEL W IVCON CT ABD & PELVIS W/CONTRAST Luis Mckenzie MD [address] [place] [address] [place] [address] Ct Imaging Referral IDStatusReasonStart DateExpiration DateVisits RequestedVisits [id number] Auto-Generated Referral [id number] / ProceduresReferred By ContactReferred To ContactRadiology Diagnoses ASHD (arteriosclerotic heart disease) Procedures Nuclear Stress Test CHG MYOCARDIAL SPECT MULTIPLE STUDIES Holden Rosado, BOTTLING ROOM WORKER-[employer]ED [employer]ING OFFICER [address] [facility], [address] [place] [address] Referral IDStatusReasonStart DateExpiration DateVisits RequestedVisits [id number] Review/[id number] / Procedures Referred By ContactReferred To ContactCT IMAGING Diagnoses Lung nodules Procedures CT CHEST W IVCON DIAGNOSTIC COMPUTED TOMOGRAPHY THORAX W/CONTRAST Luis Mckenzie MD [address] [place] [address] [place] [address] Ct Imaging [place] [address] Referral IDStatusReasonStart DateExpiration DateVisits RequestedVisits [id number] Auto-Generated Referral [id number] / ProceduresReferred By ContactReferred To ContactCT IMAGING Diagnoses Disorder of adrenal gland (HCC) Procedures CT ABD/PEL W IVCON CT ABD & PELVIS W/CONTRAST Luis Mckenzie MD [address] [place] [address] [place] [address] Ct Imaging [facility] Referral IDStatusReasonStart DateExpiration DateVisits RequestedVisits [id number] Auto-Generated Referral Family History Unknown Family Member [...] ear ache Amb Documentation [facility] FOLLOW UP [id number] for VisitASHD (arteriosclerotic heart disease) Chronic diastolic [...] 19, 2025 3:17pm ASHD (arteriosclerotic heart disease) [facility] 2024 9:23am Chronic bronchitis June 19, 2025 [...] 9: 23am Screening mammogram for breast cancer [facility] 2024 9:23am Subclinical hypothyroidism June 19, 2025 [...] 9: 23am ASHD (arteriosclerotic heart disease) [facility] 2024 9:23am Chronic bronchitis June 19, 2025 [...] 9: 23am Screening mammogram for breast cancer [facility] 2024 9:23am Subclinical hypothyroidism June 19, 2025 [...] 9: 23am ASHD (arteriosclerotic heart disease) [facility] 2024 9:23am Chronic bronchitis June 19, 2025 [...] 9: 23am Screening mammogram for breast cancer [facility] 2024 9:23am Subclinical hypothyroidism June 19, 2025 [...] or prosecute any alcohol or drug abuse patient.[facility] HospitalIn the event this information is protected by the Federal Confidentiality of Alcohol and Drug Abuse Patient Records regulations: The Federal rules restrict any use of the information to criminally investigate or prosecute any alcohol or drug abuse patient.[facility] HospitalIn the event this information is protected by the Federal Confidentiality of Alcohol and Drug Abuse Patient Records regulations: The Federal rules restrict any use of the information to criminally investigate or prosecute any alcohol or drug abuse patient.[facility] HospitalIn the event this information is protected by the Federal Confidentiality of Alcohol and Drug Abuse Patient Records regulations: The Federal rules restrict any use of the information to criminally investigate or prosecute any alcohol or drug abuse patient.[facility] HospitalIn the event this information is protected by the Federal Confidentiality of Alcohol and Drug Abuse Patient Records regulations: The Federal rules restrict any use of the information to criminally investigate or prosecute any alcohol or drug abuse patient.[facility] HospitalIn the event this information is protected by the Federal Confidentiality of Alcohol and Drug Abuse Patient Records regulations: The Federal rules restrict any use of the information to criminally investigate or prosecute any alcohol or drug abuse patient.[facility] HospitalIn the event this information is protected by the Federal Confidentiality of Alcohol and Drug Abuse Patient Records regulations: The Federal rules restrict any use of the information to criminally investigate or prosecute any alcohol or drug abuse patient.[facility] HospitalIn the event this information is protected by the Federal Confidentiality of Alcohol and Drug Abuse Patient Records regulations: The Federal rules restrict any use of the information to criminally investigate or prosecute any alcohol or drug abuse patient.[facility] HospitalIn the event this information is protected by the Federal Confidentiality of Alcohol and Drug Abuse Patient Records regulations: The Federal rules restrict any use of the information to criminally investigate or prosecute any alcohol or drug abuse patient.[facility] HospitalIn the event this information is protected by the Federal Confidentiality of Alcohol and Drug Abuse Patient Records regulations: The Federal rules restrict any use of the information to criminally investigate or prosecute any alcohol or drug abuse patient.[facility] HospitalIn the event this information is protected by the Federal Confidentiality of Alcohol and Drug Abuse Patient Records regulations: The Federal rules restrict any use of the information to criminally investigate or prosecute any alcohol or drug abuse patient.[facility] Reason for Visit (unrecogniz ed section and content) ReasonCommentsLab OrdersReasonCommentsabnormal spepReasonCommentsResultsReason CommentsAbnormal SPEPReasonCommentsFollow-upbradycardiaSpecialtyDiagnoses / ProceduresReferred By ContactReferred To ContactRadiology Diagnoses ASHD (arteriosclerotic heart disease) Procedures Nuclear Stress Test CHG MYOCARDIAL SPECT MULTIPLE STUDIES Holden Rosado, BOTTLING ROOM WORKER-[employer]ED [employer] OFFICER [address] [facility], [address] [place] [address] Referral IDStatusReasonStart DateExpiration DateVisits RequestedVisits [id number] Review/[id number] CT SpecialtyDiagnoses / ProceduresReferred By ContactReferred To ContactCT IMAGING Diagnoses Lung nodules Procedures CT CHEST W IVCON DIAGNOSTIC COMPUTED TOMOGRAPHY THORAX W/CONTRAST Luis Mckenzie MD [address] [place] [address] [place] [address] Ct [address] [place] [address] Referral IDStatusReasonStart DateExpiration DateVisits RequestedVisits [id number] Auto-Generated Referral /[id number]-qxDkuq resultxSpecialtyDiagnoses / ProceduresReferred By ContactReferred To ContactCardiology Diagnoses ASHD (arteriosclerotic heart disease) Procedures Follow Up In Cardiology Edinson Perry, DO [address] [address], [place] [id number] Holden Rosado, BOTTLING ROOM WORKER-MOTORIZED SQUAD COMMANDING OFFICER [address] [place] [address], [place] [phone] Referral IDStatusReEn[facility] DateExpiration DateVisits RequestedVisits [id number]/20/202312/[id number]-hl0 month SpecialtyDiagnoses / ProceduresReferred By ContactReferred To ContactCardiology Diagnoses ASHD (arteriosclerotic heart disease) Procedures Follow Up In Cardiology Holden Rosado, BOTTLING ROOM WORKER-MOTORIZED SQUAD COMMANDING OFFICER [address] [address], [place] [phone] Phone: tel: fax: Referral IDStatusReasonStdamariscotta DateExpiration DateVisits RequestedVisits [id number]/24/20246/[id number] DateCommentsMed [id number] NoduleSpecialtyDiagnoses / Procedures Referred By ContactReferred To ContactOtolaryngology Diagnoses Nontoxic single thyroid nodule (CMS/HCC) Procedures [employer]UATION [employer] MANAGEMENT SERVICE Nathan Hathaway MD [address] [place] [address] Phone: tel: Reyna Esparza MD [address] [place] [address] Phone: tel: fax: Referral IDStatusReasonStart DateExpiration DateVisits RequestedVisits [id number]/22/20257/[id number]-ai9 months Follow up for Coronary Artery DiseaseSpecialtyDiagnoses / ProceduresReferred By ContactReferred To ContactCardiology Diagnoses Essential hypertension Procedures Follow Up In Cardiology Edinson Perry, DO [address] [facility] 2, [address] [address] Phone: tel: fax: Holden Rosado, BOTTLING ROOM WORKER-MOTORIZED SQUAD COMMANDING OFFICER [address] [facility] 2, [address] [address] Phone: tel: fax: Referral IDStatusReasonStart DateExpiration DateVisits RequestedVisits [id number]/11/202412/[id number] Nodule Follow ultrasound [facility] 02/10/25ReasonCommentsLab OrdersntReasonCommentsOrders Patient UpdateReasonCommentsAbnormal SPEPFOLLOW UP [...] End Date Nathan Hathaway DO PCP - [facility]01/31/12Team MemberRelationshipSpecialtyStart Date End Date Fransico Nathan Whitlock DO PCP - [facility]01/31/12 Team Status: Inactive Member Role Status Dates Jonna Perry , DO Attending Provider Active Lindsay Prado ProviderActive Team Status: Inactive Member Role Status Dates Nathan Hathaway DO Primary Care Provider Active Galina Quick ProviderActiveLj Ryan , DOAdmit Provider, Attending ProviderActiveTeam MemberRelationshipSpecialtyStart DateEnd Date Nathan Hathaway DO PCP - [facility]01/31/12Team MemberRelationshipSpecialtyStart Date End Date Nathan Hathaway DO PCP - [facility]01/31/12 Team Status: Active Member Role Status Dates Nathan Hathaway DO Primary Care Provide r, Attending Provider Active Start: February 02, 2024 Team Status: Inactive Member Role Status Dates Nathan Hathaway DO Primary Care Provider Active Start: February 13, 2024 End: February 13, 2024Deja Pope APRN TEST PREPARATION TUTOR-CAttending ProviderActive Start: February 13, 2024 End: February 13, 2024Team MemberRelationshipSpecialtyStart DateEnd Date Nathan Hathaway DO PCP - [facility]10/03/23 Team Status: Active Member Role Status Dates [...] DateEnd Date [facility] Rsrezcvm52/6/23Team MemberRelationshipSpecialtyStart Date End Date [facility]/23Team MemberRelationshipSpecialtyStart Date End Date Nathan [facility] - [facility] Vranmnqv63/6/23Team MemberRelationshipSpecialtyStart Date End Date Nathan [facility] Thppkvwl37/6/23Team MemberRelationshipSpecialtyStart Date End Date Nathan [facility] - [facility]01/31/12Team MemberRelationshipSpecialtyStart Date End Date Nathan [facility]away [facility] - [facility] Hpwxznpm86/6/23Team MemberRelationshipSpecialtyStart Date End Date [facility] Kdzavdtd90/6/23Team MemberRelationshipSpecialtyStart Date End Date Nathan Hathaway MD [address] [facility] [place] [phone] PCP - External PCPInternal Medicine06/29/23Team MemberRelationshipSpecialtyStart DateEnd Date Nathan Hathaway MD [address] [place] [address] PCP - External PCPInternal Medicine06/29/23Team MemberRelationshipSpecialtyStart DateEnd Date Nathan Hathaway MD [address] [facility] [place] [address] PCP - External PCPInternal Medicine06/29/23Team MemberRelationshipSpecialtyStart DateEnd Date Nathan Hathaway DO PCP - GeneralInternal Gtudwgnr65/6/23 Team Status: Inactive Member Role Status Dates Nathan Hathaway DO Primary Care Provide r, Attending Provider Active Start: January 22, 2025 End: January 22, 2025Team MemberRelationshipSpecialtyStart DateEnd Date Nathan Hathaway MD [address] [place] [phone] PCP - GeneralInternal Medicine02/10/25Team MemberRelationshipSpecialtyStart Date End Date Nathan Hathaway DO [address] [place] [phone] PCP - GeneralInternal Medicine02/10/25Team MemberRelationshipSpecialtyStart Date End Date Nathan Hathaway DO [address] [facility] [place] [address] PCP - GeneralInternal Medicine02/10/25Team MemberRelationshipSpecialtyStart Date End Date Nathan Hathaway DO [address] [place] [address] PCP - GeneralInternal Medicine03/09/25 Team Status: Active [...] MemberRelationshipSpecialtyStart DateEnd Date FransicoNathan Chinyere PCP - [facility]01/31/12Team MemberRelationshipSpecialtyStart Date End Date Nathan Hathaway DO PCP - [facility]01/31/12Team MemberRelationshipSpecialtyStart Date End Date Nathan Hathaway DO PCP - [facility]01/31/12 Team Status: Active Member Role Status Dates [...] Start: July 08, 2025 Fanny Bedoya APRN TEST PREPARATION TUTOR-CAttending ProviderActiveStart: July 08, 2025 Team Status: Active [...] section and content) DATE CREATED AUTHOR 03/08/2023 [facility] DATE CREATED AUTHOR AUTHOR'S ORGANIZ ATION 03/09/2023 [facility] DATE CREATED AUTHOR AUTHOR'S ORGANIZ ATION 03/11/2023 [facility] DATE CREATED AUTHOR AUTHOR'S ORGANIZ ATION 02/14/2025 [facility] DATE CREATED AUTHOR AUTHOR'S ORGANIZ ATION 02/26/2025 [facility] DATE CREATED AUTHOR AUTHOR'S ORGANIZ ATION 03/26/2025 [facility] DATE CREATED AUTHOR AUTHOR'S ORGANIZ ATION 03/26/2025 [facility] DATE CREATED AUTHOR AUTHOR'S ORGANIZ ATION 07/19/2025 [facility] Goals (unrecognized section and content) [...] BE BASED ON THE PRIMARY CLINICAL RECORDS. [facility] [employer] provides no warranty or guarantee of the accuracy or completeness of information in this document.
--- NOTE | 2025-08-18 14:41 | CM.DCFOLLOWU ---
Person spoke with:Maggie How are you feeling? Tired How is your pain? No pain Did you understand your discharge instructions? Yes Do you have any questions about your discharge instructions? No Were you given any prescriptions at discharge? Yes Were you able to get your prescriptions filled? Yes Do you understand how to take your medications as ordered? Yes Do you have any questions about your follow up appointment and do you plan to keep your follow up appointment? No questions and yes I plan on keeping all of my appts Is there anything else that you would like to discuss? No Questions/Comments/Concerns/Other:
== END 2025-08-16 14:57 | disposition home or self-care (01) | DRG 291 ==
LOC: ER 08:28 → MS 08-15 19:38
PROVIDERS: Admitting Provider Internal Medicine; Emergency Provider Emergency Medicine; PCP Internal Medicine; Visit Provider Internal Medicine
DX: I13.0 Hypertensive heart and chronic kidney disease with heart failure and stage 1 through stage 4 chronic kidney disease, or unspecified chronic kidney disease (principal); I50.33 Acute on chronic diastolic (congestive) heart failure; J96.01 Acute respiratory failure with hypoxia; N18.30 Chronic kidney disease, stage 3 unspecified; Z87.891 Personal history of nicotine dependence; I16.0 Hypertensive urgency; Z86.16 Personal history of COVID-19; Z79.899 Other long term (current) drug therapy; Z79.02 Long term (current) use of antithrombotics/antiplatelets; G62.9 Polyneuropathy, unspecified; I25.10 Atherosclerotic heart disease of native coronary artery without angina pectoris; Z95.5 Presence of coronary angioplasty implant and graft; Z87.01 Personal history of pneumonia (recurrent); G47.30 Sleep apnea, unspecified; J44.9 Chronic obstructive pulmonary disease, unspecified; D63.1 Anemia in chronic kidney disease; D50.9 Iron deficiency anemia, unspecified; Z99.81 Dependence on supplemental oxygen
CPT/HCPCS: 36415; 71045; 80048; 83880; 84484; 85025; 85027; 93005; 94640; 94761; 96372; 96374; 96376; 99285; G0378; J1650; J1938

== ENCOUNTER 2025-08-25 11:09 | Outpatient (OUT) | payer MEDICARE, SELFPAY ==
--- OUTSIDE RECORDS SUMMARY | 2025-08-21 09:02 | XMS_ITS | Continuity of Care Document ---
Author Organization [facility] Address [address] [place] [address] Phone Care Team Providers Care Cutter Apprentice Hand Name Role Phone Nathan Bateman DO Primary Care Provider [phone] Nathan Bateman DO Attending Provider Fanny Long APRN Attending Provider Valentin Myers MD Attending Provider Kaia Krishna DAG SPRAYER-C Attending Provider [phone] Cher Singh DO Attending Provider [phone] Agueda Fields MD Attending Provider Susana Cortes CMA Attending Provider Unavaila Seth Yang DO Attending Provider [phone] Care Teams Patient Care Team Team Status: Active Member Role/Relationship Status Dates Nathan Bateman DO Primary Care Provider Active Visit Care Team Team Status: Inactive Member Role/Relationship Status Dates Nathan Bateman DO Primary Care Provider Active Start: June 19, 2025 End: June 19Zaida Ragsdale ProviderActiveStart: June 19, 2025 End: June 19, 2025 Visit Care Team Team Status: Active Member Role/Relationship Status Dates Nathan Bateman DO Primary Care Provider Active Start: June 23, 2025 Nathan Ball , DOAttending ProviderActiveStart: June 23, 2025 Visit Care Team Team Status: Active Member Role/Relationship Status Dates Nathan Bateman DO Primary Care Provider Active Start: June 24, 2025 Nathan Bateman , DOAttending ProviderActiveStart: June 24, 2025 Visit Care Team Team Status: Active Member Role/Relationship Status Dates Nathan Bateman DO Primary Care Provider Active Start: July 08, 2025 Fanny Long APRN DAG SPRAYER-CAttending ProviderActiveStart: July 08, 2025 Visit Care Team Team Status: Active Member Role/Relationship Status Dates Nathan Bateman DO Primary Care Provider Active Start: July 15, 2025 Valentin Myers , MDAttending ProviderActiveStart: July 15, 2025 Visit Care Team Team Status: Inactive Member Role/Relationship Status Dates Nathan Bateman DO Primary Care Provider Active Start: July 21, 2025 End: July 21rob Bateman DOAttending ProviderActiveStart: July 21, 2025 End: July 21, 2025 Visit Care Team Team Status: Inactive Member Role/Relationship Status Dates Nathan Bateman DO Primary Care Provider Active Start: August 04, 2025 End: August 04, 2025Kaia Krishna , DAG SPRAYER-CAttending ProviderActiveStart: August 04, 2025 End: August 04, 2025 Visit Care Team Team Status: Active Member Role/Relationship Status Dates Nathan Bateman DO Primary Care Provider Active Start: August 10, 2025 Chersarahi Masonpatricia Singh , DOAttending ProviderActiveStart: August 10, 2025 Visit Care Team Team Status: Active Member Role/Relationship Status Dates Nathan Bateman DO Primary Care Provider Active Start: August 11, 2025 Agueda Fields , MDAttending ProviderActiveStart: August 11, 2025 Visit Care Team Team Status: Active Member Role/Relationship Status Dates Nathan Bateman DO Primary Care Provider Active Start: August 11, 2025 Susana Cortes CMAAttending ProviderActiveStart: August 11, 2025 Visit Care Team Team Status: Active Member Role/Relationship Status Dates Nathan Bateman DO Primary Care Provider Active Start: August 14, 2025 Seth Dupree DOAttending ProviderActiveStart: August 14, 2025 Visit Care Team Team Status: Active Member Role/Relationship Status Dates Nathan Bateman DO Primary Care Provider Active Start: August 15, 2025 Truongiggy Kg Diamond Monicaending ProviderActiveStart: August 15, 2025 Visit Care Team Team Status: Active Member Role/Relationship Status Dates Nathan Bateman DO Primary Care Provider Active Start: August 16, 2025 Truongiggy Kg Diamond Philip ProviderActiveStart: August 16, 2025 Visit Care Team Team Status: Active Member Role/Relationship Status Dates Nathan Bateman DO Primary Care Provider Active Start: August 17, 2025 Eliot Thurston ProviderActiveStart: August 17, 2025 Visit Care Team Team Status: Inactive Member Role/Relationship Status Dates Nathan Bateman DO Primary Care Provider Active Start: August 19, 2025 End: August 19, 2025Jeffery Lopeztending ProviderActiveStart: August 19, 2025 End: August 19, 2025 Patient Care Team Team Status: Inactive Member Role/Relationship Status Dates Nathan Bateman DO Primary Care Provider Active Start: August 21, 2025 End: August 21Kristy Ragsdaleending ProviderActiveStart: August 21, 2025 End: August 21, 2025 Chief Complaint and Reason for Visit Chief Complaint Admit Date wellness/3 mo f/u June 19, 2025 9: 23am leg swelling/sores July 21, 2025 3:32pm VENOUS INSUFFICIENCY W ULCERS, EDEMA Oct [place] 2024 10:24am Amb Documentation August 11, 2025 1 :26pm Amb Documentation August 17, 2025 9 :42am I87.2 G25.81 R60.0 U75320 I83.893 Octobe r 2024 7:55am [facility] f/u-HIGH RISK August 21 11:39am Reason for Visit Admit Date Anemia June 19, 2025 9: 23am ASHD [...] ejection fraction (HFpEF) July 21, 2025 3:32pm Bilateral lower extremity edema August 04, 2025 10:24am Hemosiderin pigmentation of skin August 04, 2025 10:24am Symptomatic varicose veins of both lower extremities August 04, 2025 10:24am Skin tenderness August 04, 2025 10 :24am Acute respiratory failure with hypoxemia August 21, 2025 11:39am Anemia August 21, 2025 1 1:39am ASHD (arteriosclerotic heart disease) Oc tober 2024 11:39am Chronic bronchitis August 21, 2025 1 1:39am Chronic kidney disease August 21 11:39am Chronic venous insufficiency July 11:39am Essential hypertension August 21 11:39am Hypercholesterolemia August 21, 2025 11:39am 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) August 21, 2025 11:39am Requires continuous at home supplemental oxygen August 21, 2025 11:39am Acute on chronic heart failu re with preserved ejection fraction (HFpEF) August 21, 2025 11:39am Allergies, Adverse Reactions, Alerts Allergen Type Severity Reaction Last Updated Verified Status Comments amlodipine Allergy Unknown Unknown Reaction August 21, 2025 11:47am Yes Active amoxicillinAllergyUnknownUnknown ReactionOctober 2024 11:47amYesActive azithromycinAllergyUnknownrashOctober 2024 11:47amYesActivecodeineAllergy UnknownUnknown ReactionOctober 2024 11:47amYesActivedoxycyclineAllergy UnknownUnknown ReactionOctober 2024 11:47amYesActiveduloxetineAllergy UnknownUnknown ReactionOctober 2024 11:47amYesActiveguaifenesinAllergy UnknownUnknown ReactionOctober 2024 11:47amYesActivelevofloxacinAllergy UnknownUnknown ReactionOctober 2024 11:47amYesActiveondansetronAllergy UnknownUnknown ReactionOctober 2024 11:47amYesActiveOnset Date: 10/29/2019 sulfamethoxazoleAllergyUnknownUnknown ReactionOctober 2024 11:47amYes Activetetanus and diphtheria toxoidsAllergyUnknownUnknown ReactionOctober 2024 11:47amYesActivePenicillinsAllergyUnknownRashOctober 2024 11:47amYes Zkhkiq45 Hour DecongestantAllergyUnknownUnknown ReactionApril 2023 10:52am NoActiveOnset Date: 10/29/2019Cheratussin AC *COUGH/COLD/ALLAllergyUnknown Unknown ReactionApril 2023 10:52amNoActiveFree Text Allergy: Cheratussin AC *COUGH/COLD/ALLERGY*; Onset Date: 10/29/2019 Social History Smoking Status Status Start Date End Date Date of Observa tion Never smoked tobacco (finding) February 12, 2025 6:48am Observation Status Observation Response Date of Response Legal Sex Female (finding) Sex Assigned At BirthFemaleNovember 1939 Family History Relationship Condition Age at Onset Recorded Date/T jerzy brother Type 2 diabetes mellitus Unknown Heart diseaseUnknownfatherMyocardial infarctionUnknownHeart diseaseUnknownmother History of implantable cardioverter-defibrillator (ICD) insertionUnknownHeart diseaseUnknownbrotherMalignant neoplasm of kidneyUnknownsisterMultiple sclerosis UnknownLeukemiaUnknownbrotherMalignant neoplasm of lungUnknownExposure to Agent OrangeUnknownbrotherMalignant neoplasm of colonUnknownbrotherMalignant neoplasm of urinary bladderUnknownbrotherMalignant neoplasm of lungUnknownbrother Malignant neoplasmUnknownfatherDeceasedUnknownmotherDeceasedUnknown Problems Active Problems Problem Diagnosis/Recorded Date Onset Date Status C omments Bilateral lower extremity edema August 04, 2025 2:41pm U nknown Active Chronic heart failure with preserved ejection fraction (HFpEF)September 09, 2024 10:33pmUnknownActive- LHC w/ PCI/stent LAD, RCA (Feb, 2023)- Echo w/ LVEF 60%, ELY, normal RV size/function, RVSP 41 - 01/2024,Echo: LVEF 60-65%, normal RV size/function, mild-mod MR - ervical spondylosis with radiculopathyApril 2023 10:31amUnknownActiveGastroesophageal reflux disease with esophagitis without hemorrhageApril 2023 10:31amUnknownActivePrimary insomniaAugust 2023 2:14pmUnknownActiveGAD (generalized anxiety disorder)January 31, 2024 10:31amUnknownActiveNocturnal leg crampsMarch 2024 11:22amUnknownActive Symptomatic varicose veins of both lower extremitiesOctober 2024 2:41pm UnknownActiveScreening mammogram for breast cancerAugust 2024 7:25am UnknownActiveMenopauseApril 2023 10:31amUnknownActiveThyroid noduleNovember 2023 4:38pmUnknownActiveUS: right 16mm TR4, left 5-7mm TR4 - 08/2024,FNA: right nodule - 11/17/24,US: no change - 01/2025Subclinical hypothyroidismMay 2023 11:01amUnknownActiveElevated serum immunoglobulin free light chain level January 31, 2024 10:31amUnknownActiveAnemiaApril 2023 10:31amUnknownActive Adrenal noduleApril 2023 10:31amUnknownActiveHypercholesterolemiaNovember 2023 10:37pmUnknownActiveChronic kidney diseaseFebruary 2024 9:47pm UnknownActiveAcute respiratory failure with hypoxemiaOctober 2024 10:31pm UnknownActiveRestless leg syndromeApril 2023 10:31amUnknownActiveEssential hypertensionApril 2023 10:31amUnknownActiveMGUS (monoclonal gammopathy of unknown significance)January 31, 2024 10:31amUnknownActiveIrritable bowel syndrome with diarrheaApril 2023 10:31amUnknownActiveHemosiderin pigmentation of skinOctober 2024 2:41pmUnknownActiveChronic venous insufficiencyApril 2023 10:31amUnknownActiveRequires continuous at home supplemental oxygenOctober 2024 10:32pmUnknownActiveChronic bronchitis November 2023 10:38pmUnknownActiveObesityMay 2024 7:52pmUnknown ActiveASHD (arteriosclerotic heart disease)January 31, 2024 10:31amUnknownActive LHC w/ PCI/stent LAD, RCA (Feb, 2023)Inactive/Resolved Problems Problem Diagnosis/Recorded Date Onset Date Status C omments Hypertensive emergency May 17, 2023 3:50pm Unknown R esolved Problem List clean-up per request of Phys. EHR Cmte Tendinitis, de Quervain's January 31, 2024 10:31am Unknown Resolved Heart palpitationsApril 2024 10:32amUnknownResolvedHeart failureJuly 2022 4:20pmUnknownResolvedProblem List clean-up per request of Phys. EHR Cmte HyperlipidemiaMay 2022 10:00amUnknownResolvedProblem List clean-up per request of Phys. EHR CmteFlash pulmonary edemaJuly 2022 3:50pmUnknown ResolvedProblem List clean-up per request of Phys. EHR CmteAbnormal cardiovascular stress testMay 2022 11:34amUnknownResolvedProblem List clean-up per request of Phys. EHR CmteHypoxiaJuly 2022 4:20pmUnknown ResolvedProblem List clean-up per request of Phys. EHR CmteHypertensionMay 2022 10:00amUnknownResolvedProblem List clean-up per request of Phys. EHR [facility] ASHD (arteriosclerotic heart disease)March 09, 2023 11:34amUnknownResolved Problem List clean-up per request of Phys. EHR Cmte Medications Medication Status Dose Units Route Directions Qty Days Refills S tart Date Stop Date End Date Reason(s) Instructions Adherence Rosuvastatin 40 mg tablet Discontinued 40 MG PO Daily 90 90 3 February 02, 2024 12:00am February 06, 2024 12:11pmRosuvastatin 40 mg ohbeslYvldqgjrtkmd53RCCEJqyyt06324 February 06, 2024 12:11pmApril 2023 12:12pmRosuvastatin 40 mg tablet Phwovfnyvfov67MJVSEjlsi47430Bhjam 2023 12:11pmJanuary 2024 8:24am Carvedilol 3.125 mg tabletDiscontinued0.ROUTE.DNKQDHQ1297Teaox 2023 7:04am February 26, 2024 10:53amTAKE 1 TABLET BY MOUTH TWICE DAILY WITH FOODSacubitril- Valsartan (Entresto) 24-26 mg kouwmvNcpqdjaatxus7SPQELRdqcs rgtbv983885Kow 22nd, 2024 2:53pmDecember 2023 1:42pmNifedipine 30 mg tablet extended release 27okRoqoeylqavcn93EXWHUgvbz404607Fqd 22nd, 2024 2:54pmFebruary 2024 12:38pmTemazepam 15 mg joobsdeRtguaegvtglf51KZVUKqvug at meyangx23277Ohkqwg 2023 2:13pmNovember 2023 11:19pmPrimary insomnia Primary insomniaClopidogrel 75 mg zeddquLltmhmlsacuf25QNDVCatxc11921Kuybpc 2023 11:42amSeptember 2024 7:34amGabapentin 100 mg capsuleDiscontinued0 .ROUTE.DVRJYBY2910Nfpdohv 2023 9:28amSept2024 7:34amTAKE 1 CAPSULE BY MOUTH TWICE DAILYTemazepam 15 mg dfyvoxjRwzcebjoegcm42BLWTEitoh at jdkdeoj25315Iglfsygp2023 11:18pmApril 2024 10:20pmPrimary insomnia Primary insomniaAlprazolam 0.25 mg tabletDiscontinued0.25MGPOTwice daily as needed for omxgoje162025Cqpqyiid2023 3:19pmApril 2024 10:20pm Generalized anxiety disorder Generalized anxiety disorderFurosemide 20 mg tabletDiscontinued0.ROUTE.COMPLEX 1803Deceer 2023 1:59pmFebruary 2024 5:28pmTAKE 1 TABLET BY MOUTH 1 TO 2 TIMES DAILY NEEDEDValsartan 80 mg syakpxOywruxkducwf69EEGBEtumj67515 October 08, 2024 1:00amAugust 2024 3:16pmRosuvastatin 40 mg tablet Active0.ROUTE.OSEFDIE456Bguqyna 2024 8:24amTAKE 1 TABLET BY MOUTH DAILY Complies with drug therapyPantoprazole 40 mg tablet,delayed release (DR/EC) Active0.ROUTE.YWACLVG475Hewvwat2024 8:28amTAKE 1 TABLET BY MOUTH DAILY ON AN EMPTY STOMACH FOLLOWED IN 1/2 HOUR BY BREAKFASTComplies with drug therapy Fluticasone Propion-Salmeterol (Advair Hfa) 115-21 mcg/actuation HFA aerosol abjoocmObybelcamrlz2MRMLDDKZAVWSQIDcjyb 12 prbvb115081Hzckayw 2024 10:19am February 12, 2025 6:38amOn Hold: NoneAlbuterol Sulfate 90 mcg/actuation HFA aerosol edwclnzUcpfvxrsgcvo4MSGNBAEXSHKUBBTubit 6 hours as needed for shortness of breath or wheezing8.55January 2024 10:19amOctober 2024 11:51am Furosemide 20 mg ytdoytXqixdpmwhrnw74YEKU.EQKPLEE9451Evlgexrs 2024 5:26pm December 23, 2024 2:17pm20 mg orally BID on Sunday, Sunday, , Sunday; daily on Sunday, Sunday, SundayFurosemide 20 mg enuhrdPkupaaxjwocw51BWRJRlfyl emcrk9207Bcyzucah 2024 2:16pmApril 2024 7:05amBudesonide-Formoterol 160-4.5 mcg/actuation HFA aerosol pwalygpUoelxyvpyjmn7MGZVMGFAFWWHLCKzbqx 12 hours10.2302[facility] 2024 1:00amMarch 2024 2:01pmBudesonide-Formoterol 160-4.5 mcg/actuation HFA aerosol eicdlwvMhifpfaoddpl5LDWURTIHKEHYIHKzorl 12 hours30.6900[facility] 2024 1:00amMarch 2024 10:26amBudesonide-Formoterol 160-4.5 mcg/actuation HFA aerosol lmlljfhJbicuijvndyq4UPZXOAEHWUMHOTCabkm 12 hours30.6900[facility] 2024 10:25amApril 2024 7:33pmAlprazolam 0.25 mg tabletDiscontinued0.25MGPOTwice osevj696100Vnuxw 2024 10:19pmApril 2024 7:05amGeneralized anxiety disorder Generalized anxiety disorderTemazepam 15 mg uefixosXjeutl61EABHZxtju at bedtime 56503Wiiaq 2024 10:20pmPrimary insomnia Primary insomniaComplies with drug therapyUmeclidinium-Vilanterol (Anoro Ellipta) 62.5-25 mcg/actuation blister with jltlxkJgtvjyjuhzrd8QMJLCXBGCKYQM Huqlo00668Sosyi 2024 12:00amMay 2024 1:20pmNystatin 100,000 unit/mL ultmawxkdaKblkarvtocix7KKEJQybn times wtgzq14230Itagq 2024 12:00amMay 2024 11:47amswish for 30 seconds and swallowUmeclidinium-Vilanterol (Anoro Ellipta) 62.5-25 mcg/actuation blister with juirfxIkbfhtbcbzfg4UOHXXNYJDKPRJ Feifs88237Fuo 2024 9:43amMay 2024 1:43pmUmeclidinium-Vilanterol (Anoro Ellipta) 62.5-25 mcg/actuation blister with twulzvDblrvumaimln8QBR EDUMSQDZTLKzgrh440706Qxls 2024 11:55amJuly 2024 4:04pmBumetanide 0.5 mg tabletDiscontinued0.5MGPOTwice vltly03492Nkoykgygv 2024 12:14pmSeptember 2024 6:18pmBumetanide 1 mg pooutnWglfhfprzcrl5ATCOGbyzr atpcs94073Cndgbztdb 2024 6:16pmOctober 2024 8:00pmClopidogrel 75 mg tabletActive0.ROUTE .XQXVLSJ881Nejfrqzlf 2024 7:34amTAKE 1 TABLET BY MOUTH DAILYComplies with drug therapyGabapentin 100 mg capsuleActive0.ROUTE.NAJRWYM7444Apmmfjwwl 2024 7:34amTAKE 1 CAPSULE BY MOUTH TWICE DAILYComplies with drug therapy Nifedipine 60 mg tablet extended release 33ezAtqxthshkogj85KREGHuptd62509Dusdpbd 2024 7:57pmOctober 2024 11:51amFurosemide 40 mg kfnzfiVuzjeamdfeyf77 MGPOTwice brqoj096Pbtripv 2024 12:00amOctober 2024 11:51am Multivitamin DztjwmTxajhxgwvxok4RRFPTHiisiGua 2022 12:00amJuly 2022 10:50amPravastatin 40 mg gzuoheWazlgxzfytav38JYEIYjzry eveningMay 2022 12:00amApril 2023 12:10pmNitroglycerin 0.2 mg/hr patch 24 hourDiscontinued 0.2MGTRANSDERMLDailyMay 2022 12:00amJuly 2022 10:50amPotassium Chloride 10 mEq tablet extended mvisopsPiwnhzjoblnt76RGVPCQXAFU 3 WEEKSMa2022 12:00amJune 2023 1:22pm3 times a week on even daysAspirin 81 mg Tablet,Delayed Release (Dr/Ec)Dgidkvkgbboa60ZOOFTeulk morningMarch 08, 2023 12:00amMay 2023 10:01amCarvedilol 3.125 mg tabletDiscontinued3.125MGPOTwice dailyMarch 08, 2023 12:00amJuly 2022 11:39amAlprazolam 0.25 mg tablet Discontinued0.25MGPOThree times daily as needed for AnxietyMarch 08, 2023 12:00amApril 2023 10:39amTemazepam 15 mg szzveyzBfesupjwndxq92OUYOHqlha at bedtimeMarch 08, 2023 12:00amAugust 2023 2:15pmAscorbic Acid (Vitamin C) (Vitamin C) 500 mg TmcuknNfdzrykvgjmn162OBFCZdiiqNlg 11th, 2023 12:00amJuly 2022 10:50amRopinirole 0.25 mg tabletDiscontinued0.25MGPODaily at bedtime as needed for restless legsMarch 08, 2023 12:00amJuly 2022 10:51am Pantoprazole 40 mg tablet,delayed release (DR/EC)Vmgwgoozjyyv89ZGBVFwpny morning March 08, 2023 12:00amJanuary 2024 8:28amFurosemide 20 mg tablet Zhrluxafrzti57MTYXgsvlz other dayMarch 08, 2023 12:00amJuly 2022 11:39amon even days 3 times a weekGabapentin 100 mg zqwglirFtohekgxhihu484TDKLRjrrl daily March 08, 2023 12:00amOctober 2023 9:28ammay take tid if neededIrbesartan 150 mg qtjutkGdkyhetvubmo463NDEBAupmp morningMarch 08, 2023 12:00amMay 2023 10:37amCalcium Carbonate-Vitamin D3 (Calcium 600 + D(3)) 600 mg-10 mcg (400 unit) WkvcerRgsmuuvkgiie0SIDRWYaqvaTls 11th, 2023 12:00amJuly 2022 10:50am Psyllium Husk (Metamucil) 0.4 gram CapsuleDiscontinued0.4GMPODaily as needed for ConstipationMay 2022 12:00amJuly 2022 10:50amTicagrelor (Brilinta) 90 mg jsdlgaIjazjeskohyc63KSUZQkqti iwkui0515Mne 2022 12:00amJuly 2022 2:07pmAlprazolam 0.25 mg tabletDiscontinued0.25MGPO.q8hrs as needed for AnxietyApril 2023 10:33amNovember 2023 3:20pmAspirin 81 mg tablet,delayed release (DR/EC)Hbtbljjnnruv99BQHUKgyul morningy 2023 10:00amFebruary 2024 11:47amblood thinnerevery Mon, Wed, and Sun Clopidogrel 75 mg hdwibqPptpqykncozi28LPIASsekjQskz 2022 12:00amAugust 2023 11:42amFluticasone Propion-Salmeterol (Advair Hfa) 115-21 mcg/actuation HFA aerosol oxnludcMejekshzcofi2YGIIHOBDGGEFFHUnzvb dailyJuly 2022 12:00amJanuary 2024 10:19amCarvedilol 3.125 mg tablet Zzpjwyimwoct85.5MGPOTwice omiro136Tvlk 2022 11:38amJuly 2022 2:48pm Please do not take if you are feeling lightheaded or have a blood pressure less than 120 systolic at homeFurosemide 20 mg plqrmxSnerachqzmyb41MPPMiejce other xjf444Iygb 2022 11:38amDecember 2023 2:00pmon even days 3 times a week. Goal weight is 195lbs, if you notice your weight trending up please take an extra dose as instructed by your PCPCarvedilol (Coreg) 12.5 mg tablet Rbujvhjdjdmx39.5MGPOTwice ursnd688Asfs 2022 12:00amApril 2023 10:34am must administer with a meal/foodPotassium Chloride 10 mEq tablet extended hdrlyxtZfkcihhvlfue77ORKQZQgvvtOcsri 2024 12:00amOctober 2024 11:51amAspirin 81 mg vdihkszSimooaaeqsim79HKFHKhqtxWtzuv 2024 12:00amMay 2024 11:46amAlprazolam 0.25 mg tabletDiscontinued0.25MGPOTwice daily as needed for anxietyApril 2024 12:00amOctober 2024 12:35pmFurosemide 20 mg rrowbnKpmcgnkangph33NHJSCqsliHpnnu 2024 12:00amAugust 2024 10:05amAlbuterol Sulfate 90 mcg/actuation HFA aerosol ppptawzSwatpaarrdzx9VAON INHALATIONEvery 6 hours as needed for shortness of breath or wheezingApril 2023 12:00amJanuary 2024 10:19amCarvedilol 3.125 mg tabletDiscontinued 3.125MGPOTwice dailyApril 2023 12:00amApril 2023 7:04amLosartan 50 mg jfxpszRbfdxajgvciv88JVLNXkykr dailyApril 2023 12:00amApril 2023 10:53amTriamcinolone Acetonide 0.1 % qipijVcvuzfmlikdc0HEGBKPYYPZRVSibzp 2023 12:00amApril 2024 6:39am1 application do not rinse afterwards and avoid eating or drinking for 30 minutes Mouth/Throat Twice a dayTriamcinolone Acetonide 0.5 % ekszeHobhmqwdqyix9MBJMGSPUAAOWKWrold dailyApril 2023 12:00amApril 2024 6:39amRopinirole 0.25 mg tabletDiscontinued0.25MGPODaily December 18, 2023 1:00amFebruary 2023 10:32amRopinirole 0.25 mg tablet Discontinued0.87XRTALfbjd85329Yyaqyvou 2023 10:31amMay 2023 10:38am Nifedipine 30 mg tablet extended release 46eqOpysbfnaieqb02MVXKOqeph00692 December 16, 2024 12:37pmOctober 2024 7:57pmBumetanide 0.5 mg tablet Discontinued0.5MGPOTwice esbuh31120Aewxot 2024 12:00amSeptember 2024 12:14pmValsartan 80 mg ghljxhUwbpsm25PALWSwnmn84314Btpgbi 2024 3:16pm Complies with drug therapyUmeclidinium-Vilanterol (Anoro Ellipta) 62.5-25 mcg/actuation blister with vnlixiQdxbzx9VPDRWDLUMQVHHVjaas824059Vtpq 2024 3:59pmComplies with drug therapyCefdinir 300 mg jzwjstpJykjnnrhacpw984WGEDCklet aravm5605Dfbg 2024 12:00amAugust 2024 9:32amCefdinir 300 mg capsule Xrfhffpkhtdn275VBOFQosoh cpxmc8351Jzqqy 2023 12:00amApril 2023 10:49amRight otitis media Dysfunction of eustachian tube Otitis media, unspecified, right ear Unspecified Eustachian tube disorder, unspecified earSacubitril-Valsartan (Entresto) 24-26 mg rranhxJolfkkqkgbti6AAIONUxxdw dailyApril 2023 12:00am March 19, 2024 2:54pmNifedipine 30 mg tablet extended release 53kmTnclkiugxtci22 MGPODailyApril 2023 12:00amMay 2023 2:54pmLevothyroxine 75 mcg ldhuorWdmpsilwyipk49CWKBJXunsfLfvgj 2023 12:00amNovember 2023 10:40amUmeclidinium-Vilanterol (Anoro Ellipta) 62.5-25 mcg/actuation blister with mjtcwzPhnvodtnahpl4IETCHEKLKPSRIEzquq81400Cfn 2024 11:37amMay 2024 11:46amUmeclidinium-Vilanterol (Anoro Ellipta) 62.5-25 mcg/actuation blister with kpazljHvozpmnxwqua3GYCXWQQVIOPPUXaqlw048424Qbr 2024 11:38am May 15, 2025 11:55amFurosemide 40 mg zyaubpXhylto20JCLFVatcs dailyOctober 2024 11:47amUnknownMetolazone 5 mg rhiuutKyatmw1SUCWTcorc as neededOctober 2024 12:00amComplies with drug therapyBudesonide-Formoterol (Symbicort) 160-4.5 mcg/actuation HFA aerosol ndqpluoVphztx9APKEYLMTFCCZUGNobpr dailyOctnorton [facility] 2024 12:00amComplies with drug therapyNifedipine 60 mg tablet extended release 05fmZfhxlb11WHBTWbttkKoghsxy 2024 11:49amUnknownAlprazolam 0.25 mg tabletActive0.25MGPOThree times daily as needed for vstkixd518381Gwwfrtx 2024 12:32pmChronic kidney disease Chronic kidney disease, stage 3bComplies with drug therapy Immunizations Immunization Event Date Not Given Reason Dose Number Attendant Sales Lot Number Reason(s) Given Vaccine Information Statement (VIS) Detail Administration Location [facility]/[employer], Pediatric Age 5-11 September 152021 COVID-19 mRNA-1273 (Moderna)November 27OVID-19 mRNA, Comirnaty (Shwrüm) November 27OVID-19 mRNA, Comirnaty (Shwrüm)December 18OVID19 mRNA, Comirnaty (Shwrüm)July 30OVID-19 mRNA, Comirnaty (Pfizer)January 28OVI Comirnaty (Shwrüm) Tri-Sucrose +January 28OVI mRNA Bivalent Booster (Shwrüm)September 15, 2022Fluzone TIV High-Dose 65YR+July 16, [id number] [facility]coin[facility]enza, unspecified formulation August 17, 2015influenza, unspecified formulationSeptember 2015 influenza, unspecified formulationOctober 2016influenza, unspecified formulationOctober 2017influenza, unspecified formulationOctober 2019influenza, unspecified formulationSeptember 2020influenza, unspecified formulationOctober 2021influenza, unspecified formulationOctnorton brow[facility] hospital 2022 Pneumococcal Conjugate Vaccine, 13 valentNovember 2014Pneumococcal Polysacc. Vaccine, 23 valentOctober 2009Zoster Vaccine Recombinant, AdjuvantedJuly 2020Tetanus, Diphtheria adult, 5 Lf pres free absSeptember 2012Tetanus, Diphtheria adult, 5 Lf pres free absSeptember 2013 Shingles (Zoster)May 21hingles (Zoster)July 22, 2021 Medical Equipment Device Date Implanted Device Details CL STENT BARBARA FRONTIER 2.5 X 18 March 09, 2023 CL STENT BARBARA FRONTIER 4.0 X 15MaL STENT BARBARA FRONTIER 4.0 X 18May 2022 Procedures Procedure Date Performed Status US arterial pvr rest LE August 19, 2025 7:58a m completed US venous duplex LE BI August 19, 2025 7:58am completed Relevant Diagnostic Tests and/or Laboratory Data Laboratory Results Test Collection Date/Time Result Date/Time Result Interpretation Reference Range Result Comment Performing Site Immunoglobulin G June 23, 2025 7:25am June 23, 2025 7:25am 330 mg/dL Abnormal (applies to non-numeric results) [id number] [facility] 7:252024 7:06dg7300 pg/mL 232-1245Performed at: [facility] [id number] Director: Carlos Witt PhD, Phone: [phone] Thyroxine June 23, 2025 7:252024 7:25am0.97 ng/dL0.76-1.46FolateAugus2024 7:252024 7:25am17.90 ng/mL8.60-58.90FerritinAugu2024 7:252024 7:22nx089.0 ng/mL8.0-252.0Iron Saturation June 23, 2025 7:2024 7:25am14.3 %Thyroid Stimulating Hormone 3rd GenAugus2024 7:25amAugust 26th, 2025 7:25am5.101 u[iU]/mL Above high normal0.358-3.740Cholesterol/HDL RatioAugust 2024 7:252024 7:25am2.73.3 - 4.4 LOW RISK4.4 - 7.1 AVERAGE RISK7.1 - 11.0 MODERATE RISK>11.0 HIGH RISKAnion GapAugust 2024 7:252024 7:25am12.1 Basophils # (Auto)June 23, 2025 7:25amAugu2024 7:25am0.0 10 3/uL 0.0-0.1Urine Random CreatinineAugust 2024 9:00amA2024 9:00am 84.52 mg/dL20.00-300.00Immunofixation InterpretationSept2024 9:56am July 08, 2025 9:56amAlbumin (Send Out)July 08, 2025 9:56am July 08, 2025 9:56am3.33 g/dLBelow low normal3.43-5.41Free Turley/Lambda Light Chain RatioSept2024 9:56amSept2024 9:56am12.64 Above high normal0.26-1.65Serum Total ProteinSept2024 9:56am July 08, 2025 9:56am5.5 g/dLBelow low normal6.3-8.0Alanine Aminotransferase (ALT/SGPT)July 08, 2025 9:56amSept2024 9:56am13 U/L7-38Immunoglobulin ASept2024 9:56amSept2024 9:56am64 mg/dLBelow low mogxeg70-135GZR15 L265P MutationSeptember 2024 10:03amSeptember 2024 10:03amSee gyuffpgHVC95 L265P MUTATION ANALYSISLaboratory Accession Number: [id number] Type: Peripheral BloodRe sult:MYD88 L265P (c.794T>C, p.Owb524Zxy) detected with variant allelefraction (vaf) 0.98%.Interpretation: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 This abnormality may also be found in diffuse large B- celllymphomas and in a small percentage of other small B-cell neoplasmsincluding chronic lymphocytic leukemia and marginal zone lymphomas.Clinical and pathologic correlation is suggested.Methodology:DNA extracted from the specimen is interrogated for the presence orabsence of the L265P (c.794T>C, p.Lzr167Mru; g.[id number]; [id number])variant (mutation) in MYD88 gene (NM_[id number]) using droplet digitalpolymerase chain reaction (PCR). Droplet digital PCR includespartitioning of DNA into droplets, droplet independent PCR,interrogation using allele specific hydrolysis probes, and analysis ofdroplets using Poisson distribution to calculate the copy number ofMYD88 L265P and wild-type MYD88. The reference genome used baAKMn35/hg38.Limitations:This test is designed to detect the L265P variant in the MYD88 gene.Uncommon variants or single nucleotide polymorphisms may affectbinding of probes or primers and may rarely result in false negative,false positive, or indeterminate results. Other variants in MYD88 willnot be identifiedby this test. The lower limit of detection of thisassay is approximately 0.5% variant allele fraction (vaf) for ubsPYX13 L265P variant. Although vaf is provided for reference, thisvalue should be interpreted with caution as this test is intended forqualitative purposes and is not validated as a quantitative test. DaqZUC10 L265P result cannot be used on a standalone basis for diagnosisof lymphoplasmacytic lymphoma and needs to be considered in thecontext of clinical and morphologic presentation.References:1) Nikkie VN, Cristhina ADAMS, Hannah R, et al. Oncogenically active YSY88vkkgcftgn in human lymphoma. Nature 2011. 470(2106):115-9.2) Joya SL, Anai WagonerJ, DW, James L, Mikey JR, Nash ED: [id number] somatic mutation: its usefulness in the differential diagnosisof bone marrow involvement by B-cell lymphoproliferative disorders. AmJ Clin Pathol. 2013. 140(3):387-94.3) Obi SP, Spencer L, Brooks G,et al. 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 N Engl J Med. 2012. 367(0)619-33.4) Almonte JQ, Juan J YS, Ariel LL, Tanya K. Toll-like receptorsand cancer: MYD88 mutation and inflammation. Front Immunol. 2014 ;367(5):1-10.5) Gabriel X, Li W, Maykel Q, et al. 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 Cancer Res. 2018. 78(10):1165-72.Disclaimer:This test was developed and its performance characteristics determinedby [facility]'s [facility] and [facility] Department. Ithas not been cleared or approved by the FDA. [facility] is regulated under CLIAas certified to perform high-complexity testing. Thistest is used forclinical purposes. It should not be regarded as investigational or forresearch.Testperformed at [facility], [address] [place] [address]. CLIA Number: [id number] performed by Natalee Bolanos, PhD, HCLDErythropoietinSeptember 2024 10:03amSept2024 10:03am26.4 mIU/mLAbove high normal2.6-18.5Iron LevelSept2024 10:03amSept2024 11:41pm45 ug/lP31-379EiwoyoOookkfzaw 17th, 2025 10:03amSept2024 10:03am17.5 ng/mL>4.7FerritinSept2024 10:03amSept2024 11:21um375.0 ng/mL14.7-205.1Vitamin B12 Level July 15, 2025 10:03amSept2024 11:69fi8306 pg/mLAbove high hgjuqk638-4004Ohfulaa Aminotransferase (ALT/SGPT)July 15, 2025 10:03am July 15, 2025 10:03am10 U/L7-38Basophils # (Auto)July 15, 2025 10:03amSept2024 10:03am0.05 k/uL<0.11B-Type Natriuretic Peptide August 10, 2025 6:15amOct2024 6:45cl5995.0 pg/mL<=1800.0Troponin I High SensitivityAugust 10, 2025 6:15amOct2024 6:15am17.5 pg/mL 4.0-51.3CUT-OFF POINTS HAVE BEEN ESTABLISHED BASED ON THE FOURTHUNIVERSAL DEFINITION OF MYOCARDIAL INFARCTION. THE UPPERREFERENCE LIMIT (URL) OF TROPONIN, DEFINED THE 99THPERCENTILE OF cTnI DISTRIBUTION IN A REFERENCE POPULATION,HAS BEEN CONFIRMED THE DECISION THRESHOLD FOR MIDIAGNOSIS.99TH PERCENTILE = 51.4 PG/MLNOTE: HIGH-SENSITIVITY TROPONIN ASSAY IS NOT INTENDED TO BEUSED IN ISOLATION BUT SHOULD BE INTERPRETED IN CONJUNCTIONWITH OTHER DIAGNOSTIC AND CLINICAL INFORMATION.Anion GapAugust 10, 2025 6:15amOctober 2024 6:15am16.2Lactic Acid LevelAugust 10, 2025 6:15amOct2024 6:15am0.8 mmol/L0.4-2.0Basophils # (Auto)August 10, 2025 6:15amOctober 2024 6:15am0.0 10 3/uL0.0-0.1Urine Culture ReflexedAugust 10, 2025 8:28amNOAnion GapAugust 11, 2025 5:38amOctober 2024 5:38am13.0Basophils # (Auto)August 11, 2025 5:38amOctober 2024 5:38am0.0 10 3/uL0.0-0.1 HematocritAugust 11, 2025 10:13amOct2024 10:13am23.7 %Below lower panic nkmhzy03.0-48.0RESULTS CALLED TO ETHAN ZULETA RNB-Type Natriuretic Peptide August 14, 2025 7:41amOctober 2024 7:93bw4586.0 pg/mL<=1800.0Troponin I High SensitivityOctober 2024 7:41amOctober 2024 7:41am15.5 pg/mL 4.0-51.3CUT-OFF POINTS HAVE BEEN ESTABLISHED BASED ON THE FOURTHUNIVERSAL DEFINITION OF MYOCARDIAL INFARCTION. THE UPPERREFERENCE LIMIT (URL) OF TROPONIN, DEFINED THE 99THPERCENTILE OF cTnI DISTRIBUTION IN A REFERENCE POPULATION,HAS BEEN CONFIRMED THE DECISION THRESHOLD FOR MIDIAGNOSIS.99TH PERCENTILE = 51.4 PG/MLNOTE: HIGH-SENSITIVITY TROPONIN ASSAY IS NOT INTENDED TO BEUSED IN ISOLATION BUT SHOULD BE INTERPRETED IN CONJUNCTIONWITH OTHER DIAGNOSTIC AND CLINICAL INFORMATION.Anion GapOctober 2024 7:41amOctober 2024 7:41am13.3Basophils # (Auto)August 14, 2025 7:41amOctober 2024 7:41am0.0 10 3/uL0.0-0.1Anion GapOct2024 6:35amOctober 2024 6:35am15.6HematocritOctober 2024 6:35amOctober 2024 6:35am22.7 %Below lower panic wyiqud12.0-48.0RESULTS CALLED TO ALBERTO PARSONnion Gap August 16, 2025 5:54amOctober 2024 5:54am14.1Protein Electrophoresis M-SpikeAugust 2024 7:25amAugust 2024 7:25am0.2 g/dLAbnormal (applies to non-numeric results)Not ObservedIron LevelAugust 2024 7:25amAugust 2024 7:25am35.0 ug/dLBelow low yinqsb94.0-170.0Cholesterol LevelAugust 2024 7:25amAugust 2024 7:52in320 mg/dL<=200Albumin/Globulin Ratio June 23, 2025 7:25amAugust 2024 7:25am1.0Basophils (%) (Auto)June 23, 2025 7:25amAugust 2024 7:25am0.7 %0.2-2.0Urine Random Microalbumin June 24, 2025 9:00amAugust 2024 9:00am20.1 mg/dL<=30.0Serum ImmunofixationSept2024 9:56amSeptember 2024 9:56amAbnormal (applies to non-numeric results)No M protein is identified.Rhbyv-9-Dackuixrz July 08, 2025 9:56amSeptember 2024 9:56am0.42 g/dL0.18-0.43Free Lambda Light Chains, QuantSeptember 2024 9:56amSept2024 9:56am 23.8 mg/L5.7-26.3Rarely, increased serum free light chains levels may not be detected or accurately quantified due to prozone phenomenon or in high viscosity samples using this immunoturbidimetric assay. Correlation with other laboratory results and clinical findings is recommended. The Lambda Free Light Chain was p erformed using the Binding Site Optilite immunoturbidimetric method. Result obtained with differentassay methods or kits cannot be used interchangeably. AlbuminSeptember 2024 9:56amSept2024 9:56am3.6 g/dLBelow low normal3.9-4.9Immunoglobulin GSept2024 9:56amSept2024 9:74hv007 mg/dLBelow low octosw129-9880Sitbj Iron Binding CapacitySeptember 2024 10:03amSept2024 11:45sn948 ug/aL184-730KqgubxkOsdmilgpv 2024 10:03amSept2024 10:03am3.7 g/dLBelow low normal3.9-4.9 Basophils (%) (Auto)July 15, 2025 10:03amSept2024 10:03am0.8 %Albumin/Globulin RatioOctober 2024 6:15amOctober 2024 6:15am1.0 Basophils (%) (Auto)August 10, 2025 6:15amOctober 2024 6:15am0.5 % 0.2-2.0Urine Other CastsOctober 2024 8:28amNONE SEEN #/LPFNONE SEEN BUN/Creatinine RatioOct2024 5:38amOctober 2024 5:38am22.8 Basophils (%) (Auto)August 11, 2025 5:38amOctober 2024 5:38am0.8 % 0.2-2.0HemoglobinOct2024 10:13amOctober 2024 10:13am8.0 g/dL Below low kebmax92.0-16.0BUN/Creatinine RatioOct2024 7:41amOctober 2024 7:41am21.2Basophils (%) (Auto)August 14, 2025 7:41amOctober 2024 7:41am0.4 %0.2-2.0BUN/Creatinine RatioOct2024 6:35amOctober 2024 6:35am21.1HemoglobinOct2024 6:35amOctober 2024 6:35am7.6 g/dLBelow low rylypd26.0-16.0BUN/Creatinine RatioOctober 2024 5:54amOctober 2024 5:54am22.6Globulin (PEP)June 23, 2025 7:25amAugust 2024 7:25am2.5 g/dL2.2-3.9Total Iron Binding CapacityAugust 2024 7:25amAugu2024 7:84bw423.0 ug/dLBelow low kxmeqb896.0-450.0HDL CholesterolAugust 2024 7:25amA2024 7:25am45 mg/dL40-60> or =60 mg/dl - LOW CARDIOVASCULAR RISK<40 mg/dl - HIGH CARDIOVASCULAR RISKAlbumin June 23, 2025 7:25amAugu2024 7:25am3.2 g/dLBelow low normal3.4-5.0 Eosinophils # (Auto)June 23, 2025 7:25amAugust 2024 7:25am0.2 10 3/uL 0.0-0.7Urine Microalbumin/Creatinine RatioAugust 2024 9:00amAugust 2024 9:58rq082.8 mg/gAbove high normal0.0-29.9NO MICROALBUMINURIA 0-29 MG/GCLINICAL MICROALBUMINURIA 30-300 MG/GMACROALBUMINURIA >300 MG/GLeuk/Lymph Sign Pathologist (Misc)July 08, 2025 9:56amSept2024 9:56am Reviewed by Dr. Jennifer David PJLflgf-6-UbwnsnlouSxlgucqdg 10th, 2025 9:56am July 08, 2025 9:56am0.86 g/dL0.42-0.98Free Turley Light Chains, Quant July 08, 2025 9:56amSept2024 9:64nt308.9 mg/LAbove high normal3.3-19.4Rarely, increased serum free light chains levels may not be detected or accurately quantified due to prozone phenomenon or in high viscosity samples using this immunoturbidimetric assay. Correlation with other laboratory results and clinical findings is recommended. The Turley Free Light Chain was pe rformed using the Binding Site Optilite immunoturbidimetric method. Result obtained with different assay methods or kits cannot be used interchangeably. Aspartate Amino Transf (AST/SGOT)July 08, 2025 9:56amSept2024 9:56am22 U/S38-63Tushubowtucmjy MSept2024 9:56amSept2024 9:10vu690 mg/dLAbove high -927Bfps SaturationSept2024 10:03amSept2024 11:41pm17.6 %15.0-57.0Aspartate Amino Transf (AST/SGOT)July 15, 2025 10:03amSeptember 2024 10:03am16 U/L13-35 Eosinophils # (Auto)July 15, 2025 10:03amSept2024 10:03am0.16 k/uL<0.46AlbuminOctober 2024 6:15amOctober 2024 6:15am3.1 g/dLBelow low normal3.4-5.0Eosinophils # (Auto)August 10, 2025 6:15amOctober 2024 6:15am0.1 10 3/uL0.0-0.7Urine Other CrystalsOctober 2024 8:28amNone Seen #/HPFNone SeenBlood Urea NitrogenOctober 2024 5:38amOctober 2024 5:38am31.0 mg/dLAbove high normal7.0-18.0Eosinophils # (Auto)August 11, 2025 5:38amOctober 2024 5:38am0.2 10 3/uL0.0-0.7Blood Urea NitrogenOctober 2024 7:41amOctober 2024 7:41am32.0 mg/dLAbove high normal7.0-18.0 Eosinophils # (Auto)August 14, 2025 7:41amOctober 2024 7:41am0.2 10 3/uL0.0-0.7Blood Urea NitrogenOctober 2024 6:35amOctober 2024 6:35am 30.0 mg/dLAbove high normal7.0-18.0Mean Corpuscular HemoglobinOctober 2024 6:35amOctober 2024 6:35am29.2 pg26.7-34.0Blood Urea NitrogenOctober 2024 5:54amOctober 2024 5:54am30.0 mg/dLAbove high normal7.0-18.0 Albumin/Globulin (PEP)June 23, 2025 7:25amAugu2024 7:25am1.30.7-1.7 LDL Cholesterol, CalculatedAugust 2024 7:25amA2024 7:25am60.2 mg/dL<100 mg/dl NYHWPMS012-457 mg/dl NEAR OR ABOVE KNAZOZP407-003 mg/dl BORDERLINE HZNL138-930 mg/dl HIGH>190 mg/dl VERY HIGHAlkaline PhosphataseAugust 2024 7:25amAugu2024 7:25am47 U/H82-671Tcysywaliyp (%) (Auto) June 23, 2025 7:25amAugu2024 7:25am2.7 %0.9-7.0Beta Globulins July 08, 2025 9:56amSeptember 2024 9:56am0.53 g/dLBelow low normal 0.61-1.17Total BilirubinSept2024 9:56amSeptember 2024 9:56am 0.3 mg/dL0.2-1.3Total BilirubinSeptember 2024 10:03amSeptember 2024 10:03am0.3 mg/dL0.2-1.3Eosinophils (%) (Auto)July 15, 2025 10:03am July 15, 2025 10:03am2.5 %Alkaline PhosphataseOctober 2024 6:15am August 10, 2025 6:15am46 U/H08-962Mvkofwbrggy (%) (Auto)August 10, 2025 6:15amOctober 2024 6:15am2.1 %0.9-7.0Urine BacteriaOct2024 8:28amTRACE #/HPFAbnormal (applies to non-numeric results)NONE SEENCalcium Level August 11, 2025 5:38amOctober 2024 5:38am8.5 mg/dL8.5-10.1Eosinophils (%) (Auto)August 11, 2025 5:38amOctober 2024 5:38am4.4 %0.9-7.0Calcium LevelOctober 2024 7:41amOctober 2024 7:41am8.4 mg/dLBelow low normal 8.5-10.1Eosinophils (%) (Auto)August 14, 2025 7:41amOctober 2024 7:41am 2.5 %0.9-7.0Calcium LevelOctober 2024 6:35amOctober 2024 6:35am8.4 mg/dLBelow low normal8.5-10.1Mean Corpuscular Hemoglobin ConcentOctober 2024 6:35amOctober 2024 6:35am33.5 g/dL29.9-35.2Calcium LevelOctober 2024 5:54amOctober 2024 5:54am8.3 mg/dLBelow low normal8.5-10.1Serum Immunofixation InterpretationAugust 2024 7:25amAugu2024 7:25am CommentAbnormal (applies to non-numeric results).Immunofixation shows IgM monoclonal protein with kappalight chain specificity.Triglycerides LevelAugust 2024 7:25amAugu2024 7:25am89 mg/dL<=150Alanine Aminotransferase (ALT/SGPT)June 23, 2025 7:25amAugu2024 7:25am18 U/B53-40Rvezpcyeng June 23, 2025 7:25amAugust 2024 7:25am28.3 %Below low .0-48.0 Gamma GlobulinsSeptember 2024 9:56amSeptember 2024 9:56am0.37 g/dL Below low normal0.53-1.51Carbon Dioxide LevelSeptember 2024 9:56am July 08, 2025 9:56am24 mmol/D96-75Pedaxe Dioxide LevelSeptember 2024 10:03amSeptember 2024 10:03am28 mmol/T18-74ThwcvtarswFpvvthsjr 2024 10:03amSeptember 2024 10:03am8.9 g/dLBelow low jcvame66.5-15.5Alanine Aminotransferase (ALT/SGPT)August 10, 2025 6:15amOctober 2024 6:15am19 U/O76-18QgwjilrdtfNuhbnxj 2024 6:15amOctober 2024 6:15am25.9 %Below low wvyotx04.0-48.0Urine BilirubinOctober 2024 8:28amNEGATIVENEGATIVE Chloride LevelOctober 2024 5:38amOctober 2024 5:97zp679 mmol/L98-107 Chloride LevelOctober 2024 7:41amOctober 2024 7:92lt741 mmol/L98-107 HematocritOctober 2024 7:41amOctober 2024 7:41am24.9 %Below low pyddlp71.0-48.0Chloride LevelOctober 2024 6:35amOctober 2024 6:35am 99 mmol/C11-428Mnli Corpuscular VolumeOctober 2024 6:35amOctober 2024 6:35am87.3 fL81.0-99.0Chloride LevelOctober 2024 5:54amOctober 2024 5:54am97 mmol/LBelow low -306Tkuhxca Electrophoresis NoteAugust 2024 7:25amAugust 2024 7:25amComment.Protein electrophoresis scan will follow via computer,mail, or sweep molder delivery.VLDL CholesterolAugust 2024 7:25amAugust 2024 7:25am17.8 mg/dLAspartate Amino Transf (AST/SGOT) June 23, 2025 7:25amAugust 2024 7:25am18 U/X58-74EyxqxqjbodLrambp 2024 7:25amAugust 2024 7:25am9.3 g/dLBelow low gtobtf31.0-16.0 Protein Electrophoresis NoteSeptember 2024 9:56amSeptember 2024 9:56amNo definitive M protein is identified on protein electrophoresis.No definitive M protein is identified on protein electrophoresis.Chloride Level July 08, 2025 9:56amSeptember 2024 9:56ve693 mmol/O50-227Xthgmjxv LevelSeptember 2024 10:03amSeptember 2024 10:56dz836 mmol/L98-107 Lymphocytes # (Auto)July 15, 2025 10:03amSeptember 2024 10:03am0.77 k/uLBelow low normal1.00-4.00Aspartate Amino Transf (AST/SGOT)August 10, 2025 6:15amOctober 2024 6:15am20 U/A98-36EqiaxuwlrcAzaejlv 13th, 2025 6:15amOctober 2024 6:15am8.7 g/dLBelow low .0-16.0Urine Occult BloodOct2024 8:28amLARGEAbnormal (applies to non-numeric results) NEGATIVECarbon Dioxide LevelOct2024 5:38amOctober 2024 5:38am 26.9 mmol/L21.0-32.0Carbon Dioxide LevelOct2024 7:41amOctober 2024 7:41am23.9 mmol/L21.0-32.0HemoglobinOct2024 7:41amOctober 2024 7:41am8.2 g/dLBelow low jyzzhm29.0-16.0Carbon Dioxide LevelOct2024 6:35amOctober 2024 6:35am25.5 mmol/L21.0-32.0Mean Platelet Volume August 15, 2025 6:35amOctober 2024 6:35am10.1 fL9.5-13.5Carbon Dioxide LevelOct2024 5:54amOctober 2024 5:54am27.1 mmol/L21.0-32.0Free Turley Light Chains, QuantAugust 2024 7:25amAugu2024 7:42re314.6 mg/LAbnormal (applies to non-numeric results)3.3-19.4BUN/Creatinine RatioAugust 2024 7:25amAugu2024 7:25am15.2Immature Granulocyte # (Auto)June 23, 2025 7:25amAugu2024 7:25am0.02 10 3/uL0.00-0.03Protein Electrophoresis M-SpikeSeptember 2024 9:56amSeptember 2024 9:56am 0.00 g/dL<=0.00CreatinineSeptember 2024 9:56amSeptember 2024 9:56am 1.65 mg/dLAbove high normal0.58-0.96CreatinineSept2024 10:03am July 15, 2025 10:03am1.64 mg/dLAbove high normal0.58-0.96Lymphocytes (%) (Auto)July 15, 2025 10:03amSeptember 2024 10:03am12.3 % BUN/Creatinine RatioOctober 2024 6:15amOctober 2024 6:15am25.0 Immature Granulocyte # (Auto)August 10, 2025 6:15amOctober 2024 6:15am 0.03 10 3/uL0.00-0.03Urine AppearanceOctober 2024 8:28amCLEARCLEAR CreatinineOctober 2024 5:38amOctober 2024 5:38am1.36 mg/dLAbove high normal0.55-1.02Immature Granulocyte # (Auto)August 11, 2025 5:38amOctober 2024 5:38am0.02 10 3/uL0.00-0.03CreatinineOctober 2024 7:41amOctober 2024 7:41am1.51 mg/dLAbove high normal0.55-1.02Immature Granulocyte # (Auto)August 14, 2025 7:41amOctober 2024 7:41am0.03 10 3/uL0.00-0.03 CreatinineOctober 2024 6:35amOctober 2024 6:35am1.42 mg/dLAbove high normal0.55-1.02Platelet CountOctober 2024 6:35amOctober 2024 6:35am 256 10 3/aG656-607ZoptzrboezMowqklj 2024 5:54amOctober 2024 5:54am 1.33 mg/dLAbove high normal0.55-1.02Free Lambda Light Chains, QuantAugus2024 7:2024 7:25am21.2 mg/L5.7-26.3Blood Urea NitrogenAugus2024 7:2024 7:25am22.0 mg/dLAbove high normal7.0-18.0 Immature Granulocyte % (Auto)June 23, 2025 7:2024 7:25am0.4 %0.0-0.5Miscellaneous Test 6Sept2024 9:56amSept2024 9:56amSee commentNot Applicable.Glucose LevelS2024 9:56am July 08, 2025 9:93ls792 mg/dLAbove high -46Dvv [place] [employer] (ADA) provides guidance for cutoff [...] diabetes.Reference: [employer] in Diabetes 2016, [place] [employer]. Diabetes Care. 2016.39(Suppl 1). Glucose LevelSept2024 10:03amS2024 10:60eo534 mg/dL Above high grdadw76-78Koz [place] [employer] (ADA) provides guidance for cutoff [...] diabetes.Reference: [employer] in Diabetes 2016, [place] [employer]. Diabetes Care. 2016.39(Suppl 1).Monocytes # (Auto)July 15, 2025 10:03amSeptember 2024 10:03am0.65 k/uL<0.87Blood Urea NitrogenOctober 2024 6:15amOctober 2024 6:15am34.0 mg/dLAbove high normal7.0-18.0 Immature Granulocyte % (Auto)August 10, 2025 6:15amOctober 2024 6:15am 0.5 %0.0-0.5Urine ColorOctober 2024 8:28amLT. YELLOWYELLOWEstimated GFR ()August 11, 2025 5:38amOctober 2024 5:23vy90Ovjgb low normal>=60 mL/min/1.73m 2Immature Granulocyte % (Auto)August 11, 2025 5:38am August 11, 2025 5:38am0.4 %0.0-0.5Estimated GFR ()August 14, 2025 7:41amOctober 2024 7:11ww76Gnzru low normal>=60 mL/min/1.73m 2 Immature Granulocyte % (Auto)August 14, 2025 7:41amOctober 2024 7:41am 0.4 %0.0-0.5Estimated GFR ()August 15, 2025 6:35amOctober 2024 6:16zy90Zphky low normal>=60 mL/min/1.73m 2Red Blood CountOct2024 6:35amOctober 2024 6:35am2.60 10 6/uLBelow low normal4.20-5.40 Estimated GFR ()August 16, 2025 5:54amOctober 2024 5:22qi39Okrhu low normal>=60 mL/min/1.73m 2Free Turley/Lambda Light Chain Ratio June 23, 2025 7:25amAugust 2024 7:25am10.59Abnormal (applies to non- numeric results)0.26-1.65Performed at: - [facility] [id number] Director: Carlos Witt PhD, Phone: [phone] Calcium LevelAugust 2024 7:25amAugu2024 7:25am8.9 mg/dL8.5-10.1 Lymphocytes # (Auto)June 23, 2025 7:25amAugu2024 7:25am0.8 10 3/uL Below low normal1.2-3.8Protein Electrophoresis InterpretSept2024 9:56amSept2024 9:56amPotassium LevelSept2024 9:56am July 08, 2025 9:56am5.3 mmol/LAbove high normal3.7-5.1Potassium Level July 15, 2025 10:03amSeptember 2024 10:03am4.7 mmol/L3.7-5.1 Neutrophils # (Auto)July 15, 2025 10:03amSeptember 2024 10:03am4.62 k/uL1.45-7.50Calcium LevelOctober 2024 6:15amOctober 2024 6:15am8.6 mg/dL8.5-10.1Lymphocytes # (Auto)August 10, 2025 6:15amOctober 2024 6:15am0.9 10 3/uLBelow low normal1.2-3.8Urine Glucose (UA)August 10, 2025 8:28amNEGATIVE mg/dLNEGATIVEEstimated GFR (Non- AmericanOct2024 5:38amOctober 2024 5:41wl37Feljl low normal>=60 mL/min/1.73m 2 Lymphocytes # (Auto)August 11, 2025 5:38amOctober 2024 5:38am0.8 10 3/uLBelow low normal1.2-3.8Estimated GFR (Non- AmericanOctober 2024 7:41amOctober 2024 7:81mo81Phzlm low normal>=60 mL/min/1.73m 2Lymphocytes # (Auto)August 14, 2025 7:41amOctober 2024 7:41am0.7 10 3/uLBelow low normal1.2-3.8Estimated GFR (Non- AmericanOctober 2024 6:35amOctober 2024 6:86pq63Ppdia low normal>=60 mL/min/1.73m 2Red Cell Distribution WidthOctober 2024 6:35amOctober 2024 6:35am13.6 %11.0-15.0Estimated GFR (Non- AmericanOctober 2024 5:54amOctober 2024 5:54am38 Below low normal>=60 mL/min/1.73m 2Immunoglobulin AAugust 2024 7:25am June 23, 2025 7:25am62 mg/dLAbnormal (applies to non-numeric results)64-422 Chloride LevelAugust 2024 7:25amAugust 2024 7:52ff443 mmol/L98-107 Lymphocytes (%) (Auto)June 23, 2025 7:25amAugust 2024 7:25am14.4 % Below low .5-60.0Miscellaneous Test CommentSept2024 9:56am July 08, 2025 9:56amReviewed by Dr. Jennifer David MDSerum Total Protein July 15, 2025 10:03amSeptember 2024 10:03am5.9 g/dLBelow low normal 6.3-8.0Neutrophils (%) (Auto)July 15, 2025 10:03amSeptember 2024 10:03am73.5 %Chloride LevelOctober 2024 6:15amOctober 2024 6:02dk594 mmol/V03-600Epiqqhcceux (%) (Auto)August 10, 2025 6:15amOctober 2024 6:15am14.4 %Below low acfvlg69.5-60.0Urine KetonesOctober 2024 8:28am NEGATIVE mg/dLNEGATIVEGlucose LevelOctober 2024 5:38amOctober 2024 5:38am91 mg/bP50-110Yuuvbebsysx (%) (Auto)August 11, 2025 5:38amOctober 2024 5:38am15.6 %Below low taukhr49.5-60.0Glucose LevelOctober 2024 7:41amOctober 2024 7:43wg494 mg/dLAbove high -656Vfuzltzufea (%) (Auto)August 14, 2025 7:41amOctober 2024 7:41am9.4 %Below low normal 20.5-60.0Glucose LevelOctober 2024 6:35amOctober 2024 6:35am97 mg/dL 74-106Corrected White Blood CountOctober 2024 6:35amOctober 2024 6:35am4.8 10 3/uL4.0-11.0Glucose LevelOctober 2024 5:54amOctober 2024 5:54am93 mg/eJ74-319Djchkjoxbbaanf MAugust 2024 7:25amAugust 2024 7:50ze635 mg/dLAbnormal (applies to non-numeric results)26-217Carbon Dioxide LevelAugust 2024 7:25amAugust 2024 7:25am30.2 mmol/L 21.0-32.0Mean Corpuscular HemoglobinAugust 2024 7:25amAugu2024 7:25am29.0 pg26.7-34.0Sodium LevelSeptember 2024 9:56amSeptember 2024 9:15dl556 mmol/Y100-181Cgduzl LevelSeptember 2024 10:03amSeptember 2024 10:35ce848 mmol/H477-881Axkejvayx Red Blood Cells #July 15, 2025 10:03amSeptember 2024 10:03am<0.01 k/uL<0.01Carbon Dioxide Level August 10, 2025 6:15amOctober 2024 6:15am26.6 mmol/L21.0-32.0Mean Corpuscular HemoglobinOctober 2024 6:15amOctober 2024 6:15am29.0 pg 26.7-34.0Urine Leukocyte EsteraseOct2024 8:28amTRACEAbnormal (applies to non-numeric results)NEGATIVEPotassium LevelOctober 2024 5:38amOctober 2024 5:38am3.9 mmol/L3.5-5.1Mean Corpuscular HemoglobinOctober 2024 5:38amOctober 2024 5:38am29.0 pg26.7-34.0Potassium LevelOctober 2024 7:41amOctober 2024 7:41am4.2 mmol/L3.5-5.1Mean Corpuscular Hemoglobin August 14, 2025 7:41amOctober 2024 7:41am28.3 pg26.7-34.0Potassium LevelOctober 2024 6:35amOctober 2024 6:35am4.1 mmol/L3.5-5.1 Potassium LevelOct2024 5:54amOctober 2024 5:54am4.2 mmol/L 3.5-5.1Serum Total ProteinAugust 2024 7:25amAugu2024 7:25am5.7 g/dLAbnormal (applies to non-numeric results)6.0-8.5CreatinineAugu2024 7:25amAugu2024 7:25am1.45 mg/dLAbove high normal0.55-1.02Mean Corpuscular Hemoglobin ConcentAugust 2024 7:25amAugu2024 7:25am 32.9 g/dL29.9-35.2Blood Urea NitrogenSeptember 2024 9:56amSeptember 2024 9:56am27 mg/dLAbove high normal7-Blood Urea NitrogenSeptember 2024 10:03amSeptember 2024 10:03am32 mg/dLAbove high normal7-Platelet Count July 15, 2025 10:03amSeptember 2024 10:63oy121 k/tW204-722 CreatinineOctober 2024 6:15amOctober 2024 6:15am1.36 mg/dLAbove high normal0.55-1.02Mean Corpuscular Hemoglobin ConcentOctober 2024 6:15am August 10, 2025 6:15am33.6 g/dL29.9-35.2Urine MucusOctober 2024 8:28am NONE SEENNONE SEENSodium LevelOctober 2024 5:38amOctober 2024 5:38am 143 mmol/R999-417Xobf Corpuscular Hemoglobin ConcentOctober 2024 5:38am August 11, 2025 5:38am33.8 g/dL29.9-35.2Sodium LevelOctober 2024 7:41am August 14, 2025 7:22nm111 mmol/LBelow low qnvewd748-975Lidt Corpuscular Hemoglobin ConcentOctober 2024 7:41amOctober 2024 7:41am32.9 g/dL 29.9-35.2Sodium LevelOctober 2024 6:35amOctober 2024 6:49ay486 mmol/B959-032Ivezcv LevelOctober 2024 5:54amOctober 2024 5:33ip717 mmol/LBelow low tuwkkh689-606Uumddqz (Send Out)June 23, 2025 7:amA2024 7:25am3.2 g/dL2.9-4.4Estimated GFR ()June 23, 2025 7:2024 7:40oh95Tnqbv low normal>=60 mL/min/1.73m 2Mean Corpuscular VolumeAugust 2024 7:25amAugu2024 7:25am88.2 fL 81.0-99.0Alkaline PhosphataseSeptember 2024 9:56amSeptember 2024 9:56am48 U/S61-683Znkrptig PhosphataseSeptember 2024 10:03amSeptember 2024 10:03am45 U/P64-625Yzje Corpuscular HemoglobinSeptember 2024 10:03amSeptember 2024 10:03am28.8 pg26.0-34.0Estimated GFR ()August 10, 2025 6:15amOctober 2024 6:39dn92Axcug low normal >=60 mL/min/1.73m 2Mean Corpuscular VolumeOctober 2024 6:15amOctober 2024 6:15am86.3 fL81.0-99.0Urine NitriteOctober 2024 8:28amNEGATIVE NEGATIVEMean Corpuscular VolumeOctober 2024 5:38amOctober 2024 5:38am85.7 fL81.0-99.0Mean Corpuscular VolumeOctober 2024 7:41amOctober 2024 7:41am85.9 fL81.0-99.0Hcdtk-9-VggyyvskeXvhfas 26th, 2025 7:25ugu2024 7:25am0.3 g/dL0.0-0.4Estimated GFR (Non- AmericanAugust 2024 7:25amAugu2024 7:73dc30Xbwcj low normal>=60 mL/min/1.73m 2 Monocytes # (Auto)June 23, 2025 7:ugu2024 7:25am0.5 10 3/uL 0.3-0.8Calcium LevelSept2024 9:56amSeptember 2024 9:56am8.9 mg/dL8.5-10.2Calcium LevelSeptember 2024 10:03amSeptember 2024 10:03am9.0 mg/dL8.5-10.2Mean Corpuscular Hemoglobin ConcentSeptember 2024 10:03amSeptember 2024 10:03am32.2 g/dL30.5-36.0Estimated GFR (Non- AmericanOctober 2024 6:15amOctober 2024 6:66ix06Viatp low normal>=60 mL/min/1.73m 2Monocytes # (Auto)August 10, 2025 6:15amOctober 2024 6:15am0.5 10 3/uL0.3-0.8Urine pHOctober 2024 8:28am6.05.0-9.0Monocytes # (Auto)August 11, 2025 5:38amOctober 2024 5:38am0.6 10 3/uL0.3-0.8 Monocytes # (Auto)August 14, 2025 7:41amOctober 2024 7:41am0.5 10 3/uL 0.3-0.6Gtkac-9-BkehktudkGamyhe 2024 7:25amAugust 2024 7:25am1.0 g/dL 0.4-1.0GlobulinAugust 2024 7:25amAugust 2024 7:25am3.3 g/dLMonocytes (%) (Auto)June 23, 2025 7:25amAugust 2024 7:25am8.7 %1.7-12.0Anion GapS2024 9:56amSeptember 2024 9:56am11 mmol/L8-15Anion Gap July 15, 2025 10:03amSeptember 2024 10:03am10 mmol/L8-15Mean Corpuscular VolumeSept2024 10:03amSeptember 2024 10:03am89.3 fL80.0-100.0GlobulinOctober 2024 6:15amOctober 2024 6:15am3.2 g/dL Monocytes (%) (Auto)August 10, 2025 6:15amOctober 2024 6:15am8.1 % 1.7-12.0Urine ProteinOctober 2024 8:76so354 mg/dLAbnormal (applies to non- numeric results)NEG/TRACEMonocytes (%) (Auto)August 11, 2025 5:38amOctober 2024 5:38am11.4 %1.7-12.0Monocytes (%) (Auto)August 14, 2025 7:41am August 14, 2025 7:41am6.7 %1.7-12.0Beta GlobulinsAugu2024 7:25am June 23, 2025 7:25am0.7 g/dL0.7-1.3Glucose LevelAugust 2024 7:25am June 23, 2025 7:25am94 mg/dD06-426Iezk Platelet VolumeAugust 2024 7:25amAugust 2024 7:25am10.2 fL9.5-13.5Estimated GFR (CKD-EPI)July 08, 2025 9:56amSept2024 9:56am31 mL/min/1.73m???Below low normal >=60Estimated Glomerular Filtration Rate (eGFR) is calculated using [...] accurately reflect actual GFR.Red Blood CountSeptember 2024 10:03amSeptember 2024 10:03am3.09 m/uLBelow low normal3.90-5.20Glucose LevelOct2024 6:15amOctober 2024 6:20os235 mg/dLAbove high aenxaz22-493Cbch Platelet VolumeOct2024 6:15amOctober 2024 6:15am9.9 fL9.5-13.5Urine RBC August 10, 2025 8:03nv50-62 #/HPFAbnormal (applies to non-numeric results)0-2 Mean Platelet VolumeOctober 2024 5:38amOctober 2024 5:38am9.8 fL 9.5-13.5Mean Platelet VolumeOctober 2024 7:41amOctober 2024 7:41am 10.0 fL9.5-13.5Gamma GlobulinsAugu2024 7:25amAugust 2024 7:25am 0.5 g/dL0.4-1.8Potassium LevelAugust 2024 7:25amAugust 2024 7:25am 4.3 mmol/L3.5-5.1Neutrophils # (Auto)June 23, 2025 7:25amAugust 2024 7:25am4.1 10 3/uL1.4-6.5HematocritSept2024 10:03amSeptember 2024 10:03am27.6 %Below low fqevrq66.0-46.0Potassium LevelOctober 2024 6:15amOctober 2024 6:15am3.8 mmol/L3.5-5.1Neutrophils # (Auto)August 10, 2025 6:15amOctober 2024 6:15am4.6 10 3/uL1.4-6.5Urine Specific GravityOctober 2024 8:28am1.0101.005-1.025Neutrophils # (Auto)August 11, 2025 5:38amOctober 2024 5:38am3.4 10 3/uL1.4-6.5Neutrophils # (Auto) August 14, 2025 7:41amOctober 2024 7:41am5.6 10 3/uL1.4-6.5Sodium Level June 23, 2025 7:25amAugu2024 7:20iu350 mmol/K197-389Jkyhazlarhc (%) (Auto)June 23, 2025 7:amA2024 7:25am73.1 %43.0-75.0Monocytes (%) (Auto)July 15, 2025 10:03amSeptember 2024 10:03am10.4 %Sodium LevelOctober 2024 6:15amOctober 2024 6:77wv759 mmol/M690-158 Neutrophils (%) (Auto)August 10, 2025 6:15amOctober 2024 6:15am74.4 % 43.0-75.0Urine Squamous Epithelial CellsOctober 2024 8:28amFEW #/LPF Abnormal (applies to non-numeric results)NONE/RARENeutrophils (%) (Auto)August 11, 2025 5:38amOctober 2024 5:38am67.4 %43.0-75.0Neutrophils (%) (Auto) August 14, 2025 7:41amOctober 2024 7:41am80.6 %Above high normal 43.0-75.0Total BilirubinAugust 2024 7:amA2024 7:25am0.5 mg/dL0.2-1.0Platelet CountAugust 2024 7:2024 7:22gz597 10 3/iV419-500Ifviqgoxc White Blood CountSeptember 2024 10:03amSeptember 2024 10:03am6.28 k/uL3.70-11.00Total BilirubinOctober 2024 6:15am August 10, 2025 6:15am0.4 mg/dL0.2-1.0Platelet CountOctober 2024 6:15am August 10, 2025 6:25ov477 10 3/gE147-109Gnxfx UrobilinogenOctober 2024 8:28am0.2 EU/dL0.2-1.0Platelet CountOctober 2024 5:38amOctober 2024 5:07zq893 10 3/mR314-413Cakdpyms CountOctober 2024 7:41amOctober 2024 7:03tt756 10 3/qW413-991Ihvok ProteinAugust 2024 7:25amAugust 2024 7:25am6.5 g/dL6.4-8.2Red Blood CountAugust 2024 7:25amAugust 2024 7:25am3.21 10 6/uLBelow low normal4.20-5.40Nucleated RBC Relative Count (auto)July 15, 2025 10:03amSeptember 2024 10:03am0.0 /100{WBC}Total ProteinOctober 2024 6:15amOctober 2024 6:15am6.3 g/dLBelow low normal6.4-8.2Red Blood CountOctober 2024 6:15amOctober 2024 6:15am 3.00 10 6/uLBelow low normal4.20-5.40Urine WBCOctober 2024 8:49ro8-3 #/HPF Abnormal (applies to non-numeric results)NONE SEENRed Blood CountOctober 2024 5:38amOctober 2024 5:38am2.59 10 6/uLBelow low normal4.20-5.40Red Blood CountOctober 2024 7:41amOctober 2024 7:41am2.90 10 6/uLBelow low normal4.20-5.40Red Cell Distribution WidthAugust 2024 7:25amAugust 2024 7:25am13.8 %11.0-15.0Red Cell Distribution WidthSeptember 2024 10:03amSeptember 2024 10:03am13.5 %11.5-15.0Red Cell Distribution Width August 10, 2025 6:15amOctober 2024 6:15am13.2 %11.0-15.0Red Cell Distribution WidthOctober 2024 5:38amOctober 2024 5:38am13.4 % 11.0-15.0Red Cell Distribution WidthOctober 2024 7:41amOctober 2024 7:41am13.5 %11.0-15.0Corrected White [facility] CountAuro[facility] hospitalt 2024 7:25amAugu2024 7:25am5.6 10 3/uL4.0-11.0Mean Platelet VolumeSeptember 2024 10:03amSeptember 2024 10:03am9.9 fL9.0-12.7Corrected White Blood Count August 10, 2025 6:15amOctober 2024 6:15am6.2 10 3/uL4.0-11.0Corrected White Blood CountOctober 2024 5:38amOctober 2024 5:38am5.0 10 3/uL 4.0-11.0Corrected White Blood CountOctober 2024 7:41amOctober 2024 7:41am6.9 10 3/uL4.0-11.0Differential CommentSeptember 2024 10:03am July 15, 2025 10:03amAutoImmature Granulocyte # (Auto)July 15, 2025 10:03amSept2024 10:03am0.03 k/uL<0.10Immature Granulocyte % (Auto)July 15, 2025 10:03amSeptember 2024 10:03am0.5 % Diagnostic Imaging Reports Author Juan Jose Menard [facility] HospitalAuthoredOctnorton brownsboro hospital 2024 12:26pmReport Dictated Date/TimeDictated ByStatusRadiology ReportOctober 2024 12:26pm Olivia Brown [facility] [place] [address] [place] [address] Ultrasound Report Signed Patient: Maggie Whaley MR#: [id number] : 1940 Acct:[id number] Age/Sex: 84 / F ADM Date: 5 Loc: Room: Type: [facility] Attending Dr: Kaia Krishna DAG SPRAYER-C Ordering Provider: Kaia Krishna APRN Date of Service: 08/19/25 US/US arterial pvr rest LE: G25.81 - Restless legs syndrome Copies to: Kaia Krishna APRN~ LOWER EXTREMITY SEGMENTAL ARTERIAL DOPSCAN (PVR) INDICATION: Lower extremity wound PROCEDURE: Right arm blood pressure is 165 , left is 158 . Pressures throug hout the right leg are compressible at the low thigh, 170 at the calf, 155 at the ankle using the posterior tibial artery, and 159 at the ankle using the dorsalis pedis artery with ankle-brachial index of 0.94 0.96 . Pressures throughout the left leg are noncompressible at the low thigh, 178 at the calf and 160 at the ankle using the posterior tibial artery, and 171 at the ankle using the dorsalis pedis artery with ankle-brachial index of 0.97 1.04 . Wave forms by plethysmography are normal. US/US arterial pvr rest LE IMPRESSION: NO HEMODYNAMICALLY SIGNIFICANT PERIPHERAL VASCULAR OCCLUSIVE DISEASE AT REST IN EITHER LOWER EXTREMITY. Impression dictated by: Juan Jose Menard M.D. 08/19/2025 12:27 PM Dictation Location: [place] [address] Tech: Darcy Kraft Transcribed By: [facility] 08/19/251226 Dictated By: Juan Jose Menard MD 08/19/251225 Signed By: <Electronically signed by Juan Jose Menard MD in [place]> 08/19/257 Author Juan Jose Menard [facility] HospitalAuthoredPromedica [facility] 2024 12:27pmReport Dictated Date/TimeDictated ByStatusRadiology ReportOctober 2024 12:27pm Olivia Brown [facility] [place] [address] [place] [address] Ultrasound Report Signed Patient: Maggie Whaley MR#: [id number] : 1940 Acct:[id number] Age/Sex: 84 / F ADM Date: 5 Loc: Room: Type: [facility] CLI Attending Dr: Kaia Krishna DAG SPRAYER-C Ordering Provider: Kaia Krishna APRN Date of Service: 08/19/25 US/US venous duplex LE BI: I87.2 - Venous insufficiency (chronic) (peripheral) Copies to: Kaia Krishna APRN~ BILATERAL LOWER EXTREMITY AND FULL FUNCTIONAL VENOUS DUPLEX INDICATION: Chronic venous insufficiency PROCEDURE: Color-flow duplex scanning is used to interrogate the deep venous system of the right and left lower extremities. The bilateral common femoral vein, femoral vein, popliteal vein, and saphenous vein greater show good compressibility, color flow, and augmentation. In terms of reflux, there is no significant reflux identified in the vessels in the right lower extremity. The left lower extremity, there is some mild reflux of 1 to 2 seconds in the left common femoral vein and there is significant reflux seen in the left saphenofemoral junction and left greater saphenous vein of greater than 5 seconds. The right greater saphenous vein measured from 0.2 -0.39 cm throughout. There was some varicosities and customer care manager sutures also identified which all measure less than 0.24 cm The left lower extremity, the greater saphenous vein measured 0.619 cm 2.36 cm throughout its course. Again there is some noted varicosities in perforators which all measure less than 0.2 cm US/US venous duplex LE BI IMPRESSION: THIS EXAM IS POSITIVE FOR significant reflux in the left greater saphenous vein and saphenofemoral junction and mild reflux in the left common femoral vein had no reflux identified in the right lower extremity. No evidence of DVT in the bilateral lower extremities. There is varicosities and perforators is also noted in the bilateral lower extremities which appeared small. Impression dictated by: Juan Jose Menard M.D. 08/19/2025 12:30 PM [facility] Tech: Darcy Kraft Transcribed By: LAURA 08/19/25 1230 Dictated By: Juan Jose Menard MD 08/19/25 1227 Signed By: <Electronically signed by Juan Jose Menard MD in [place]> 08/19/25 1230 Vital Signs Vital Reading Result Reference Range Collection Date/Time Height 65.5 [in_i] June 19, 2025 9:39bmUgsiyr17.81 kgAugust 2024 9:31amHeart Rate62 /min 60-100August 2024 9:31amRespiratory rate14 /ipr39-49Rpkzxj 2024 9:31amOxygen saturation by Pulse hrozjwnh19 %95-100August 2024 9:31amBP Qxrbstxw571 mm[Hg]100-140August 2024 9:31amBP Oddamneyd94 mm[Hg]60-100 June 19, 2025 9:31amBMI (Body Mass Index)32.4 kg/g2Bqkyzt 2024 9:31am Wtqwsk61.5 [in_i]July 21, 2025 3:03gtFjtodq26.45 kgSeptember 2024 3:53pmHeart Rate76 /zjy54-169Hjiwprqyi 2024 3:53pmRespiratory rate12 /min 12-24September 2024 3:53pmBP Fsnbqfza677 mm[Hg]100-140September 2024 3:53pmBP Phwzwvtyb85 mm[Hg]60-100September 2024 3:53pmBMI (Body Mass Index)31.9 kg/e3Rorjmsqep 2024 3:96rlKdndmm03 [in_i]August 04, 2025 10:81lsSexzoh76.45 kgOctober 2024 10:44amBody Covzimprvxj14.6 [degF] 97.6-99.0October 2024 10:44amHeart Rate69 /dvx25-865Xiraqqd 2024 10:44amOxygen saturation by Pulse ypfxblou50 %95-100October 2024 10:44amBP Wsmtpefn356 mm[Hg]100-140October 2024 10:44amBP Kghwzrfnx45 mm[Hg]60-100 August 04, 2025 10:44amBMI (Body Mass Index)34.5 kg/s5Xfsimjo 2024 10:98qwZtsafn45 [in_i]August 21, 2025 11:46yyTlsgkb35.90 kgOctnorton brownsboro hospital 2024 11:43amHeart Rate62 /bdr85-780Lhhiccu 24th, 2025 11:43amRespiratory rate14 /min 12-[facility] 2024 11:43amOxygen saturation by Pulse blbluwff95 %95-100 August 21, 2025 11:43amBP Yhwzmqjd354 mm[Hg]100-140Octn[facility] 2024 11:43am BP Ujissnmhc46 mm[Hg]60-100[facility] 2024 11:43amBMI (Body Mass Index)34.7 kg/y5Ryfoqas 2024 11:43am Advance Directives Advance Directive Response Recorded Date/ Time Advance Directives No March 07 1:03pm Insurance Providers Guarantor Kg Deras Address [address] [id number] Info.Home Phone: Coverage Status Update:2025 Payer Group Member ID Coverage Type Subscriber Relationship to Subscriber Effective Date Expiration Date Medicare [id number] Evans , M Id: [id number] [address] [address] Home Phone: [facility]: Plan [id number] Encounters Encounter Location(s) Arrival/Admit Date Discharge/Departure Date Discharge/Departure Disposition Provider(s) Departed Physician/ Provider [facility] Visit -[facility] June 19, 2025 9:23am June 19, 2025 10:27am Discharged to home care or self care (routine discharge) Nathan Bateman DO Non-patient / Non-visit -[facility] ugust 2024 7:25am Deangelo Prado-patient / Sos-nwjan-[facility]24 9:00amBenDeangelo Fields-patient / Rxe-whcqx-Pdrar [facility]September 2024 9:56amFanny Long APRN ET-HLep-ourrvij / Mjl-vzkna-Hdyjk [facility] 2024 10:03amValentin Myers V, DIANAeparted Physician/Provider [facility] 3:32pmSeptember 2024 4:33pmDischarged to home care or self care (routine discharge)DANIEL Pradoeparted Physician/Provider [facility]- [facility] 10:24amOctober 2024 11:32am Discharged to home care or self care (routine discharge)Kaia Krishna APRN Non-patient / Ysd-oemra-Jbtqy [facility]24 6:15am Deangelo Eaton-patient / Uqd-vqhtc-Vleme [facility] October 2024 5:38amKg Guaman-patient / Dfj[facility]rpixb[facility] [place] 1:26pmGhislaine Thurston-patient / Zdi-efbun-Tckag [facility] 2024 7:41amOlivia Amador-patient / Mgg-jjdcd-Krama [facility] 2024 6:35am Kg Guaman-patient / Zle-odnnd-Twxbq [facility] 2024 5:54amKg Guaman-patient / Eqf-bxnuv-[facility]KAs[facility] 20[facility] 9:42amBrijesh Thurstonparted Clinical- Ultrasound [facility] CampusOctober 2024 7:55amOctober 2024 7:56am Discharged to home care or self care (routine discharge)Kaia Krishna APRN Departed Physician/Provider [facility] [place] 11:39amOctober 2024 1:00pmDischarged to home care or self care (routine discharge)Nathan Bateman DO Recent Diagnosis Onset Date Admit Date Anemia Unknown June 19 9:23am ASHD (arteriosclerotic heart disease) Unknown June 19, 2025 9:23am Chronic bronchitis Unknown June 19, 2025 9:23am Chronic kidney disease Unknown June 192024 9:23am Chronic venous insufficiency Unknown May us2024 9:23am Essential hypertension Unknown June 192024 9:23am [...] 19, 2025 9:23am Subclinical hypothyroidism Unknown Augus 2024 9:23am Thyroid nodule Unknown June 19 [...] fraction (HFpEF) Unknown July 21, 2025 3:32pm Bilateral lower extremity edema Unknown August 04, 2025 10:24am Hemosiderin pigmentation of skin Unknown August 04, 2025 10:24am Symptomatic varicose veins o f both lower extremities Unknown August 04, 2025 10:24am Skin tenderness Unknown August 04 10:24am Acute respiratory failure with hypoxemia Unknown August 21, 2025 11:39am Anemia Unknown August 21 11:39am ASHD (arteriosclerotic heart disease) Unknown August 21, 2025 11:39am Chronic bronchitis Unknown August 21, 2025 11:39am Chronic kidney disease Unknown July 302024 11:39am Chronic venous insufficiency Unknown Oct bronwyn2024 11:39am Essential hypertension Unknown July 302024 11:39am Hypercholesterolemia Unknown July 11:39am MGUS (monoclonal gammopathy of unknown significance) Unknown August 21, 2025 11:39am Requires continuous at home supplemental oxygen Unknown August 21, 2025 11:39am Acute on chronic heart failu re with preserved ejection fraction (HFpEF) Unknown August 21, 2025 11:39am Assessments Diagnosis Onset Date Resolution Status Admit Date Anemia acuteAugust 2024 9:23amASHD (arteriosclerotic heart disease)acuteAugust 2024 9:23amChronic bronchitisacuteAugust 2024 9:23amChronic kidney diseaseacuteAugust 2024 9:23amChronic venous insufficiencyacuteAugust 2024 9:23amEssential hypertensionacuteAugust 2024 9:23amGAD (generalized anxiety disorder)acuteAugust 2024 9:23amGastroesophageal reflux disease with esophagitis without hemorrhageacuteAugust 2024 9:23am HypercholesterolemiaacuteAugust 2024 9:23amMGUS (monoclonal gammopathy of unknown significance)acuteAugust 2024 9:23amObesityacuteAugust 2024 9:23amScreening mammogram for breast canceracuteAugust 2024 9:23am Subclinical hypothyroidismacuteAugust 2024 9:23amThyroid noduleacuteAugust 2024 9:23amAcute on chronic heart failure with preserved ejection fraction (HFpEF)noneactiveAugust 2024 9:23amMedicare annual wellness visit, subsequentnoneactiveAugust 2024 9:23amASHD (arteriosclerotic heart disease)acuteSeptember 2024 3:32pmChronic kidney diseaseacuteSeptember 2024 3:32pmChronic venous insufficiencyacuteSeptember 2024 3:32pm MGUS (monoclonal gammopathy of unknown significance)acuteSeptember 2024 3:32pmAcute on chronic heart failure with preserved ejection fraction (HFpEF) noneactiveSeptember 2024 3:32pmBilateral lower extremity edemaacuteOctober 2024 10:24amHemosiderin pigmentation of skinacuteOctober 2024 10:24am Symptomatic varicose veins of both lower extremitiesacuteOctober 2024 10:24amSkin tendernessdeletedOctober 2024 10:24amAcute respiratory failure with hypoxemiaacuteOctober 2024 11:39amAnemiaacuteOctober 2024 11:39amASHD (arteriosclerotic heart disease)acuteOctober 2024 11:39am Chronic bronchitisacuteOctober 2024 11:39amChronic kidney diseaseacute August 21, 2025 11:39amChronic venous insufficiencyacuteOctober 2024 11:39amEssential hypertensionacuteOctober 2024 11:39amHypercholesterolemia acuteOctober 2024 11:39amMGUS (monoclonal gammopathy of unknown significance)acuteOctober 2024 11:39amRequires continuous at home supplemental oxygenacuteOctober 2024 11:39amAcute on chronic heart failure with preserved ejection fraction (HFpEF)noneactiveOctober 2024 11:39am Plan of Treatment Author Nathan Bateman [facility] 2024 4:22pmI have instructed this patient on [...] will restart Levothyroxine at a lower dose. [place], nondiagnostic per FNA - 10/2024 f/u [...] Fe, B12 and FA Author Nathan Bateman [facility] HospitalAuthoredSeptember 2024 4:56pmI have instructed this patient on [...] ELY, normal RV size/function, RVSP - 01/2024 Echo: LVEF 60-65%, normal RV [...] in reducing risks for recurrent events. - [facility] w/ PCI/stent LAD, RCA (Feb, 2023) - [...] SPEP, IF, FLC revealed small M-spike, elevated Turley light chain and elevated K/L ratio Referred back to Hematology Author Kaia Krishna [facility] HospitalAuthoredOctober 2024 2:45pmThis patient reports achiness, heaviness, leg fatigue, itching, burning, skin tenderness, edema, and recurrent ulcerations of bilateral legs. She has tried use of graded compression stockings although this is rough for her sometimes as they are quite uncomfortable due to her ongoing skin tenderness. She does have some notable skin changes of bilateral lower legs however this may be dermatologic in nature as well. Her skin is quite tender throughout almost to the point where she does not even allow me to touch the lower ankle region. She does not have any ischemic pain and she has no tissue loss. She currently does not have any venous ulcerations although does state a history of venous ulcerations in the past. We discussed both venous and arterial disease at length and addressed all her questions. We will go ahead and obtain a full functional duplex study to evaluate for any venous valvular incompetence and bring her back to discuss those results as well as any treatment recommendations based on those studies. At the same time we will also go ahead and obtain noninvasive arterial studies as she does have nonpalpable PT pulse bilaterally, with added risk factors of history of CAD, and a history of hypertension. We discussed the importance of good skin care and moisturizer therapy, weight management, and frequent activity along with graded compression stockings and leg elevation. She verbalized understanding of our discussion today and agrees with this plan. Denies questions. Author Nathan Bateman [facility] HospitalAuthoredOctober 2024 10:37pmThis patient is stable without activity related chest [...] BRAD/ARB or ARNI, MRA and a SGLT-2i. C w/ PCI/stent LAD, RCA (Feb, 2023) Echo w/ LVEF 60%, ELY, normal RV size/function, RVSP 41 - 01/2024 Echo: LVEF 60-65%, normal RV size/function, mild-mod MR - 02/2025 She has gained weight w/ associated wheezing and increased edema - doubled Furosemide w/o corresponding increase in urine output She does have CKD, likely due to permissive azotemia from diuretic use Doubled Furosemide to 80mg bid Added Metolazone 5mg PRN weight gain Continue Valsartan without interruption I have instructed this patient [...] and feet daily for blisters and ulcerations. Increased Furosemide to 80mg bid and added Metolazone 5mg PRN weight gain - monitor leg edema and weight closely Refer to Vascular surgery for evaluation. Recent SPEP, IF, FLC revealed small M-spike, elevated Turley light chain and elevated K/L ratio Referred back to Hematology I have instructed this patient to consume [...] weeks. Continue Valsartan and Nifedipine without interruption Multifactorial Fe, FA and B12 normal - 06/2025 No s/s GIB MGUS present f/u hematology No ER/hosp visits for AE COPD EDEL as needed LABA/ICS substituted for LABA/LAMA UTD w/ vaccinations I have instructed this patient on a low fat, high fiber diet and exercise. I have discussed the primary and secondary prevention benefits attributed to lowering LDL cholesterol. I have also discussed the medical treatment of elevated cholesterol, which is based on the 10 year ASCVD risk. Continue Rosuvastatin without interruption Secondary to COPD and HFpEF. Treatment of both conditions required to improve oxygenation. - increased Furosemide to 80mg bid and added Metolazone as needed for weight gain - control BP - supplemental oxygen to maintain Psats > 90% - Symbicort substituded for Anoro Supplied w/ 2L/min per NC Maintain Psats > 90% Future Tests Future scheduled test information is unavailable Pending Tests Pending diagnostic test information is unavailable Future Visits Future appointment information is unavailable Future Procedures Procedure Name Ordered Date Scheduled Date Ferritin June 19, 2025 4:01pm FolateAugust 2024 4:01pmLipid PanelAugust 2024 4:01pmThyroid Stimulating HormoneAugust 2024 4:01pmDisability PlacardOctober 2024 12:45pm Future Medications Future medication information is unavailable Patient Instructions Patient instructions are unavailable
--- OUTSIDE RECORDS SUMMARY | 2025-08-25 11:15 | XMS_ITS | Encounter Summary ---
Author Organization [facility] Address [address] [place] [address] Phone Care Team Providers Care Society Reporter Name Role Phone Nathan Bateman DO Primary Care Provider [phone] Encounter Details DateTypeDepartmentCare Team (Latest Contact Info)Slaqshtwnzx63/17/2025Scanned Document [facility] [address] [place] [phone] Scanning, Generic Provider Social History Tobacco UseTypesPacks/DayYears UsedDateSmoking Tobacco: FormerCigarettesQuit: 1980Smokeless Tobacco: NeverAlcohol UseStandard Drinks/WeekCommentsNever0 (1 standard drink = 0.6 oz pure alcohol)CommentsUnknownSex and Gender InformationValueDate RecordedSex Assigned at BirthNot on fileLegal SexFemale 03/05/2023 12:05 PM EDTGender IdentityNot on fileSexual OrientationNot on file documented as of this encounter Plan of Treatment DateTypeDepartmentCare Team (Latest Contact Info)Berjsztxomr10/30/2025 11:00 AM EDTOffice Visit [address] [place] [phone] Edinson Perry DO [address] [place] [address] [address] [place] [address] 10/27/2025 2:10 PM ESTOffice Visit [address] [place] [phone] Edinson Perry DO [address] [place] [address] [address] [place], [place] [phone] documented as of this encounter Visit Diagnoses Not on filedocumented in this encounter Additional Health Concerns AssessmentNoted TimeA fall risk assessment has been completed for the patient 01/12/2025 11:11 AM EDTdocumented as of this encounter Care Teams Team MemberRelationshipSpecialtyStart DateEnd Date Nathan Bateman DO [address] [place] [address] PCP - GeneralInternal Medicine03/09/25documented as of this encounter
--- OUTSIDE RECORDS SUMMARY | 2025-08-25 11:15 | XMS_ITS | Clinical Summary ---
Author Organization [facility] Address [address] [place] [address] Phone Care Team Providers Care District Court Bailiff Name Role Phone Nathan Bateman DO Primary Care Provider [phone] Allergies Active AllergyReactionsCriticalityNoted DateComments Sulfamethoxazole-AlybbznkauflEdbwv40/12/9116TrialwpommxkIovtxegp56/20/2023 Tongue swelling Medications MedicationSigDispense QuantityRefillsLast FilledStart DateEnd [...] every 12 hours.5Active Active Problems ProblemNoted DateDiagnosed AyyzDfvkhaitiapn32/17/2025 Assessment & Plan (01/12/2025 3:48 PM EDT): Reports fairly daily episodes of hearing my heart thumping going into my ears No prior documented A-fib or arrhythmia. 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 (PTCA)10/08/20245697Xoziamclpjwzrn95/08/2024 Assessment & Plan (01/12/2025 3:47 PM EDT): [...] PM EDT): March 09, 2023 Mid/proximal RCA PCI/[place] 4x15mm & 4x18mm Proximal diagonal PCI/Willie 2.5 x 18 mm LAD 10% Circumflex normal LVEF 65% February 2024 MPI ischemia, EF 88% Current daily activity at 4 METS without concerning symptoms Assessment & Plan (04/22/2024 11:58 AM EDT): March 09, 2023 Mid/proximal RCA PCI/[place] 4x15mm & 4x18mm Proximal diagonal PCI/Willie 2.5 x 18 mm LAD 10% Circumflex normal LVEF 65% February 2024 MPI ischemia, EF 88% Current daily activity at 4 METS without concerning symptoms Assessment & Plan (03/06/2024 10:41 AM EDT): March 09, 2023 Mid/proximal RCA PCI/[place] 4x15mm & 4x18mm Proximal diagonal PCI/[place] 2.5 x 18 mm LAD 10% Circumflex normal LVEF 65% Essential aiemhybxkxzi25/20/2023 Assessment & Plan (01/12/2025 3:46 PM EDT): Optimal in office Assessment & Plan (04/22/2024 11:58 AM EDT): Optimal in the office Assessment & Plan (03/06/2024 10:41 AM EDT): Optimal in office Shortness of ajmhyo3610/17/20230512ZXPND06/20/2023Former jhvejb5010/17/2023 Encounters DateTypeDepartmentCare IfcaMlbbenfrzrv07/17/2025Scanned Document [facility] [address] [place] [place] [address] Scanning, Generic Provider from Last 3 Months Immunizations ImmunizationAdministration DatesNext DueFlu vaccine, trivalent, preservative [...] InformationValueDate RecordedSex Assigned at BirthNot on fileLegal NcsLtrqno85/08/2023 12:05 PM EDTGender IdentityNot on fileSexual OrientationNot on file Last Filed Vital Signs Vital SignReadingTime TakenCommentsBlood Roqtiqma913/6005 10:42 AM EDT Ufzvn1774/17/2025 11:10 AM EDTTemperature--Respiratory Rate--Oxygen Saturation-- Inhaled Oxygen Concentration--Pysujm60.7 kg (200 lb)03/17/2025 10:42 AM EDT Xfronl697.1 cm (5' 5 )03/17/2025 10:42 AM EDTBody Mass Index33.28003/17/2025 10:42 AM EDT Plan of Treatment DateTypeDepartmentCare Team (Latest Contact Info)Xuloeaqydxv51/30/2025 11:00 AM EDTOffice Visit [address] [phone] Edinson Perry DO [address] [place] [address] [address], [address] [place] [address] 10/27/2025 2:10 PM ESTOffice Visit [address] [phone] Edinson Perry DO [address] [place] [address] [address], [address] [place], [place] [phone] Health MaintenanceDue DateLast DoneCommentsCreatinine Level1942Lipid Panel 1940Medicare Annual Wellness Visit (AWV)2Potassium Level 1940TSH Level2Diabetes Rujwbehae13/20/1960CKD: Urine Protein Mwkdhsipv54/20/1961DTaP/Tdap/Td Vaccines (1 - Tdap)1964Bone Density Scan 2007RSV High Risk: (Elderly (60+) or Population) (1 - 1-dose 75+ series)2017Zoster Vaccines (2 of 2)/, 05/21/2021 Influenza Vaccine (#1)/, 08/06/2023, 08/11/2022, Additional history existsCOVID-19 Vaccine (2024- season)/04/2025, 09/15/2022, 01/28/20224146Gblaxjnnhzhaku25/20/321870/, 3Pneumococcal IzfohowKuekpiuvh89/16/2015, 08/11/2010HIB VaccinesAged OutNo longer eligible based on patient's age to complete this topicHPV VaccinesAged OutNo longer eligible based on patient's age to complete this topicHepatitis A VaccinesAged OutNo longer eligible based on patient's age to complete this topicHepatitis B VaccinesAged OutNo longer eligible based on patient's age to complete this topic IPV VaccinesAged OutNo longer eligible based on patient's age to complete this topicMeningococcal VaccineAged OutNo longer eligible based on patient's age to complete this topicRotavirus VaccinesAged OutNo longer eligible based on patient's age to complete this topic Procedures Procedure NamePriorityDate/TimeAssociated DiagnosisCommentsTRANSTHORACIC ECHO (TTE) PCIINAQNFzqwygo05/20/2025 11:35 AM EDT Essential hypertension Palpitations from Last 3 Months or Most Recently Relevant to Health Maintenance Results * TRANSTHORACIC ECHO (TTE) COMPLETE (03/17/2025 11:35 AM EDT)ComponentValueRef RangeTest MethodAnalysis TimePerformed AtPathologist SignatureAV mn jebl2jpIc SYNGOAV pk vel1.40m/sSYNGOLV Biplane EF55%SYNGOLVOT diam2.06cmSYNGOMV E/A ratio1.48SYNGOMV avg E/e' ratio17.94SYNGOLA vol index A/L42.1ml/x6QMAVEQR EF63 %SYNGORV free wall pk S'16.27cm/kGADLZVFZN29.0uuHmRXWZQHATFp4.11cmSYNGOAortic Valve Area by Continuity of Peak Velocity1.96tv1BBGESMP pk ldzr7pmQjARSOA Aortic Valve Area by Continuity of VTI2.39mu2AANWETD A4C EF64.6SYNGOSpecimen (Source)Anatomical Location / LateralityCollection Method / VolumeCollection TimeReceived Time03/17/2025 10:43 AM EDT Narrative SYNGO - 03/18/2025 6:52 PM EDT ?[address], Suite [facility], [place] [address] ? TRANSTHORACIC ECHOCARDIOGRAM REPORT Patient Name: ?LASHAUN WHALEY ? Reading Physician: ?[address] [place], [place] [address] ?Malena MANCINI, ?[facility] Study Date: ?03/17/2025 ?Ordering Provider: ?[id number] HOLDEN K ?ROSADO MRN/PID: ? [id number] ? Fellow: Accession#: ?[id number] ? Nurse: Date of /Age: ?? 1940 / ?Student Worker: ?Nicolasa Tobias ? years ?RDCS, RVT Gender Assigned at ?? F ?Additional Staff: : Height: ?165.10 cm ?Admit Date: Weight: ?90.72 kg ? Admission Status: BSA / BMI: ? 1.98 m2 / 33.28 ?Department Location: ??[facility] ? kg/m2 ?[facility] [place] Blood Pressure: 120 /64 mmHg Study Type: ?TRANSTHORACIC ECHO (TTE) COMPLETE Diagnosis/ICD: Essential (primary) hypertension-I10; Palpitations-R00.2 Indication: ?CAD, PTCA-2022, Edema, Hyperlipidemia, Former Smoker CPT Codes: ? Echo Complete w Full Doppler-[id number] Study Detail: The following Echo studies were [...] (0.6-0.9m/s) AORTA: Asc Ao Diam 2.73 cm [id number] Bryce Guy MD, [facility] Electronically signed on 03/18/2025 at 6:52:27 PM Final Procedure Note Bryce Guy MD - 03/18/[address], [address] [place] [address] TRANSTHORACIC ECHOCARDIOGRAM REPORT Patient Name: LASHAUNJacky Doherty Physician: [id number] Zurita [facility] In[facility] Study Date: 03/17/2025 Ordering Provider: [id number] ROSADO MRN/PID: [id number] Fellow: Nurse: Date of /Age: 11 1940 Student Worker: Carlos Eduardo taylor RDCS,RVT Gender Assigned at F Additional Staff: : Height: 165.10 cm Admit Date: Weight: 90.72 kg Admission Status: BSA / BMI: 1.98 m2 / 33.28 Department Location: [facility] Blood Pressure: 120 /64 mmHg Study Type: TRANSTHORACIC ECHO (TTE) COMPLETE Diagnosis/ICD: Essential (primary) hypertension-I10; Palpitations-R00.2 Indication: CAD, PTCA-2022, Edema, Hyperlipidemia, Former Smoker CPT Codes: Echo Complete w Full Doppler-[id number] Study Detail: The following Echo studies were [...] (0.6-0.9m/s) AORTA: Asc Ao Diam 2.73 cm [id number] Bryce Guy MD, [facility] Electronically signed on 03/18/2025 at 6:52:27 PM Final Authorizing ProviderResult TypeResult StatusHolden Rosado SENIOR CLIMATE ADVISOR-CNPCV ECHO PROCEDURESFinal ResultPerforming OrganizationAddressCity/State/ZIP CodePhone Number SYNGO from Last 3 Months or Most Recently Relevant to Health Maintenance Insurance Care Teams Team MemberRelationshipSpecialtyStart DateEnd Nathan [place] [address] PCP - GeneralInternal Medicine03/09/25
--- OUTSIDE RECORDS SUMMARY | 2025-08-25 11:15 | XMS_ITS | Clinical Summary ---
Author Organization [facility] Address [address] [place] [address] Care Team Providers Care Pension Fund Manager Name Role Phone Nathan Bateman DO Primary Care Provider [phone] Allergies Active AllergyReactionsCriticalityNoted FudqIqbnxmiiMbgylixlyrj15/08/2024 Other Reaction(s): Unknown Yrfqayoaqe91/29/2021 Other Reaction(s): Unknown, Unknown Reaction OgbwntmxhixiGrkepvsf12/20/2023 Other Reaction(s): rash Tongue swelling Mxkzvub9102/13/2024 Other Reaction(s): Unknown Reaction Ybgvztzunwt39/29/2021 Other Reaction(s): Rash, Unknown, Unknown Reaction Sulfamethoxazole-MrcqdrerekdjZtlap24/29/2021 Other Reaction(s): Unknown Medications MedicationSigDispense QuantityRefillsLast FilledStart [...] BY MOUTH DAILY02/12/2025tive Active Problems ProblemNoted DateDiagnosed GyshBqwitebrtwhz85/17/2025bnormal cardiovascular stress test11/24/2024 Overview (11/24/2024): Problem List clean-up per request of Phys. EHR Cmte Adrenal ttykkw4111/24/20246490Aeqqsm40/27/2025trophic idoiyqmgz32/27/2025ervical spondylosis with xlqdabzfkxxmw88/27/2025hronic lonmzjainh69/27/2025hronic heart failure with preserved ejection fraction (HFpEF)11/24/2024 Overview (11/24/2024): - LHC w/ PCI/stent LAD, RCA (Feb, 2023) - Echo w/ LVEF 60%, ELY, normal RV size/function, RVSP 41 - 01/2024 Chronic obstructive pulmonary disease with (acute) kbdkbdfkejbj19/27/2025hronic venous xsrglpgocwnni50/27/2025Elevated serum immunoglobulin free light chain level11/24/2024Flash pulmonary edema11/24/2024 Overview (11/24/2024): Problem List clean-up per request of Phys. EHR Cmte OMAR (generalized anxiety disorder)11/24/2024Gastroesophageal reflux disease with esophagitis without okmfumllxk10/27/2025Heart osjqzsg5311/24/2024 Overview (11/24/2024): Problem List clean-up per request of Phys. EHR Cmte Dry eyes04/28/2024Epiretinal membrane (ERM) of left eye04/28/2024lepharitis of upper and lower eyelids of both eyes04/28/2024MI 33.0-33.9,adult03/05/2024SHD (arteriosclerotic heart disease)10/17/2023 Overview (11/24/2024): C w/ PCI/stent LAD, RCA (Feb, 2023) COVID10/17/2023Essential xpruxoofatvs85/20/2023 Overview (11/24/2024): Problem List clean-up per request of Phys. EHR Cmte Former pcmpct7610/17/2023 Family History RelationNameStatusCommentsFatherDeceasedMotherDeceased Social History Tobacco UseTypesPacks/DayYears UsedDateSmoking Tobacco: FormerCigarettesQuit: 1992Smokeless Tobacco: Never Tobacco Cessation:Counseling Given: Not Answered CommentsUnknownSex and Gender InformationValueDate RecordedSex Assigned at BirthNot on fileLegal QpjCtbvel43/15/2023 7:00 PM EDTGender IdentityNot on fileSexual OrientationNot on file Last Filed Vital Signs Vital SignReadingTime TakenCommentsBlood Gqorruyc150/59002/25/2025 8:46 AM EDT Mltts6366/30/2025 8:46 AM EDTTemperature--Respiratory Rate--Oxygen Saturation-- Inhaled Oxygen Concentration--Gccozw01.5 kg (195 lb)02/25/2025 8:46 AM EDTHeight 165.1 cm (5' 5 )02/25/2025 8:46 AM EDTBody Mass Index32.45002/25/2025 8:46 AM EDT Plan of Treatment Health MaintenanceDue DateLast DoneCommentsInfluenza Vaccine (#1)06/29/2025 07/16/2024, 08/06/2023, 08/11/2022, Additional history existsPneumococcal Vaccine: 65+ IjtgiAbunbwvwc59/16/2015, 08/11/2010 [place] [address] Care Teams Team MemberRelationshipSpecialtyStart DateEnd Date Nathan Bateman DO [address] [place] [phone] PCP - GeneralInternal Medicine02/10/25
--- OUTSIDE RECORDS SUMMARY | 2025-08-25 11:34 | XMS_ITS | CCD ---
Author Organization [facility] CliniSywa Care Team Providers Care Cafeteria Supervisor Name Role Phone Nathan Hathaway DO Primary [...] BALL, DR EVANS Consulting Unavailable BALL, DR EVNAS Admitting Unavailable BALL, DR EVANS Primary Care Unavailable JORGE, DR WILLIAM Jackson Consulting Unavailable BALL, DR EVANS Attending Unavailable BALL, DR EVANS Consulting Unavailable BALL, DR EVANS Admitting Unavailable BALL, DR EVANS Primary Care Unavailable DO Jonna Perry Attending Provider [phone] DO Nathan Hathaway Primary Care Provider [phone] Nathan Hathaway Unavailable [place], Dr. Edinson Hinojosa Attending Darleneva jen Hathaway, Dr. Nathan Maxwell Primary Care Ericka Perry, Dr. Edinson Hinojosa Attending Aura Perry, Dr. Edinson Hinojosa Referring Aura Hathaway, Dr. Nathan Maxwell Primary Care Unavai lable Ch, DO Fernando Emergency Provider Connor, DO Lj Wagoner Admit Provider Connor, DO Lj Wagoner Attending Provider Ball DO, Nathan Whitlock Primary Care Provider Ball DO, Nathan Whitlock Primary Care Provider Ball, DO Evans Primary Care Provider THONY Rosado Attending Provider Ball DO, Nathan Whitlock Primary Care Provider Nathan Hathaway MD Unavailable Ball DO, Nathan Primary Care Provider Fransico DO, Nathan Attending Provider [phone] Ball DO, Nathan Whitlock Primary Care Provider Fransico DO, Nathan Primary Care Provider Ball DO, Nathan Attending Provider Nathan Hathaway MD Primary Care Provider Ball DO, Nathan Whitlock Primary Care Provider REYNA ESPARZA Attending Unavailable NATHAN HATHAWAY E Referring Unavailable REYNA ESPARZA Attending Unavailable FERCHO TSE Attending Unavailable Fransico REILYL, Nathan Whitlock Primary Care Provider Fransico REILLY, Nathan Primary Care Provider Keister , Jorge L [place] Emergency Provider HOLDEN ROSADO Attending Unavailable EDINSON PERRY Referring Unavailable NATHAN HATHAWAY Primary Care Unavailable EDINSON PERRY Attending Unavailable HOLDEN ROSADO Referring Unavailable BALLNATHAN Primary Care Unavailable HOLDEN ROSADO Attending Unavailable EDINSON PERRY Referring Unavailable NATHAN HATHAWAY Primary Care Unavailable HOLDEN ROSADO Referring Unavailable BALL, NATHAN Whitlock Primary Care Unavailable HOLDEN ROSADO Referring Unavailable NATHAN HATHAWAY E Primary Care Unavailable Ball , Nathan Primary Care Provider Fransico REILLY, Nathan Attending Provider Ball , Nathan Primary Care Provider Ball , Nathan Attending Provider BALL, NATHAN E Primary Care Unavailable PAOLO CASILLAS Attending Unavailable BALL, NATHAN E Primary Care Unavailable BALL, NATHAN E Referring Unavailable BALL, NATHAN E Primary Care Unavailable BALL, NATHAN E Referring Unavailable BALL, NATHAN E Primary Care Unavailable BALL, NATHAN E Referring Unavailable Fanny Bedoya APRN Attending Provider [phone] Lucia MANCINI, Valentin Jackson Attending Provider Shelbi CASTRO-CKaia Attending Provider Ball DO, Nathan Primary Care Provider [phone] Ball DO, Nathan Attending Provider [phone] Samantha DOCher Attending Provider Diamond MANCINI, Agueda Saul Attending Provider Susana Cortes CMA Attending Provider Unavaila ble Seth Dupree DO Attending Provider [phone] Ball, Nathan Primary Care Unavailable Ball, Nathan Attending Unavailable Fransico, Nathan Admitting Unavailable Ball, Nathan Primary Care Unavailable Keister, Jorge L A Admitting Unavailable Keister, Jorge L A Attending Unavailable Fransico, Nathan Primary Care Unavailable Kaia Krishna Admitting Unavailable Kaia Krishna Attending Unavailable Allergies Allergy ClassificationReported Allergen(s)Allergy TypeDate of OnsetReaction(s) Facility (20 sources)amLODIPine; Translations: [AMLODIPINE]Drug Bisadsf14-61-2974Qzeyvlo [facility] (12 sources)Codeine / guaiFENesin; Translations: [CODEINE-GUAIFENESIN]Drug Cavjujx31-62-4558ZkylobaOfkrsgtts Clinic (12 sources)Doxycycline; Translations: [DOXYCYCLINE HYCLATE]Drug Allergy 57-35-6282TurdjxyVeauzopiv Clinic (20 sources)DULoxetine; Translations: [DULOXETINE]Drug Uktaahx38-34-7217Ljmjzvd [facility] (20 sources)levoFLOXacin; Translations: [LEVOFLOXACIN]Drug Yhtxmer05-38-0737 UnknownWvumedicine [facility] (20 sources)Ondansetron; Translations: [ONDANSETRON]Drug Ikuoner53-49-9915 [facility] HospitalComment on above:Onset Date: 10/29/2019 (20 sources)Penicillins; Translations: [PENICILLINS]Propensity to adverse reactions to teqt73-92-2906JuotuhjRrgnscdqs Clinic (20 sources)Sulfamethoxazole / Trimethoprim; Translations: [Bactrim]Drug Allergy 90-67-2643MxdnqfsUniversity Hospitals [facility] (8 sources)Tetracycline (class of antibiotic); Translations: [TETRACYCLINES] Propensity to adverse reactions to epvg86-87-8099GucgxnbIhxzhvngz Clinic (12 sources)Iodine And Iodide Containing Products; Translations: [IODINE AND IODIDE CONTAINING PRODUCTS]Drug Lzvrtti51-25-6304KelorlgRspxwhcve Clinic (20 sources)Tetanus And Diphtheria Toxoids; Translations: [TETANUS AND DIPHTHERIA TOXOIDS]Propensity to adverse reactions to nxdy45-98-8067Yrnjskj [facility] (20 sources)AmoxicillinDrug Uenfwpv37-31-2856Fymesap, Unknown ReactionProtestant Hospital (20 sources)Codeine / guaiFENesinDrug AllergyMiriam Hospital [facility] Other (20 sources)DoxycyclineDrug Sugxmow35-36-4572Pzfxsee, Unknown ReactionProtestant Hospital (20 sources)levoFLOXacinDrug AllergyWorcester County HospitalExpertBids.comJohn R. Oishei [facility] [employer] Other (20 sources)Ondansetron; Translations: [Zofran]Drug Zscrleo42-63-9431QnojvvkTsxKing's Daughters [facility] [place] Repository (20 sources)Tetanus-Diphtheria Toxoids TdDrug allergyWorcester County HospitalExpertBids.comJohn R. Ois[facility] [employer] Other (20 sources)AllopurinolDrug Ohjekqu14-45-5991JphifwyHgvKing's Daughters Medical Center [place] Repository (1 source)amLODIPineDrug Umrwzvw29-68-1525NiyAdams County [facility] Repository (1 source)DoxycyclineDrug AllergyAdams County Regional Medical Center Repository (1 source)DULoxetineDrug Cedyvwy06-30-6885ZcrAdams County Regional Medical Center Repository (1 source)Iodine (And Iodine Containting Drugs)Drug allergy (disorder)01-19-2021 [facility] Repository (1 source)Sulfamethoxazole / TrimethoprimDrug Npfotvj59-40-6780NeuAdams County Regional Medical Center Repository (9 sources)Sulfonamides (Antibiotic); Translations: [SULFA (SULFONAMIDE ANTIBIOTICS)]Allergy to jlqqyppeh27-40-1765KnrzSuburban Community Hospital & [facility] (18 sources)SulfamethoxazoleDrug Mlzhqyz40-32-0006Nphtijn [facility] (8 sources)Trimethoprim; Translations: [TRIMETHOPRIM]Drug Ctekwcu68-52-4411 [facility] (20 sources)Pseudoephedrine; Translations: [PSEUDOEPHEDRINE]Drug Allergy 42-80-0987UswhenhOdnmq [place] [facility] Other (20 sources)TetracyclineDrug AllergyMiriam Hospital [employer] Other (20 sources)Cheratussin AC *COUGH/COLD/ALLERGY*Propensity to adverse reactions 05-44-1933VxgszijMpcxm [place] [facility] Other (20 sources)Zofran *ANTIEMETICS*Propensity to adverse kumljyody59-12-6430Bmwhxnt [place] [facility] Other (5 sources)amLODIPineDrug AllergyMiriam Hospital [employer] Other (20 sources)Azithromycin; Translations: [AZITHROMYCIN]Drug Pxprebs43-46-9809 rash, SwellingProtestant Hospital (20 sources)CodeineDrug Tkkpuxh92-00-0107Fqajjgq [facility] (17 sources)guaiFENesinDrug Skmzxpw35-41-5048UrbmpdmGeorgetown Behavioral Hospital (17 sources)12 Hour DecongestantAllergy to lfxumxsfe87-53-4861Zktqepv [facility] HospitalComment on above:Onset Date: 10/29/2019 (17 sources)Cheratussin AC *COUGH/COLD/ALLAllergy to zlzatkhff21-69-4890Soleyli [facility] HospitalComment on above:Free Text Allergy: Cheratussin AC *COUGH/COLD/ALLERGY*; Onset Date: 10/29/2019 (8 sources)PenicillinsDrug Utmhgkeeqci00-79-9731KKHP [facility] (4 sources)PenicillinsPropensity to adverse reactions to drbx50-62-9288HylbwtzWhite Hospital (4 sources)TetracyclinesPropensity to adverse reactions to qkrv31-30-8833AfkltjoWhite Hospital (1 source)Allopurinol; Translations: [ALLOPURINOL]Drug Rpmtelg47-06-1445 [facility] Repository Medications Current Medications MedicationDrug Class(es)DatesSig (Normalized)Sig (Original)AeroChamber Mini Chamber - (5 sources)Start: 48-46-4763OanuVvxujeo Mini Chamber - Use with MDI every 6 hours as needed inhaled every 6 hours as needed for30 days Mar, Active ALPRAZolam 0.25 mg oral tablet (20 sources)BenzodiazepineStart: 87-79-1245qrns 1 tablet by mouth three times daily as needed for anxietyAlprazolam 0.25 mg tablet Active 0.25 MG PO Three times daily as needed for anxiety 270 90 August 21, 2025 12:32pm Chronic kidney disease Chronic kidney disease, stage 3b Complies with drug therapyStart: 09-11-2024 End: 79-21-0748objg 1 tablet by mouth twice daily as needed for anxiety Alprazolam 0.25 mg tablet Discontinued 0.25 MG PO Twice daily as needed for anxiety February 12, 2025 12:00am August 21, 2025 12:35pmStart: 01-31-2024 End: 21-48-1963vjhh 1 tablet by mouth every eight hours as needed for anxiety Alprazolam 0.25 mg tablet Discontinued 0.25 MG PO .q8hrs as needed for Anxiety January 31, 2024 10:33am September 11, 2024 3:20pmStart: 78-14-9426gtzw 1 tablet by mouth every eight hours as needed for anxietyALPRAZolam 0.25 MG TAKE 1 TABLET BY MOUTH EVERY 8 HOURS NEEDED FOR ANXIETY for 90 February, Active Start: 03-08-2023 End: 23-16-1892sqet 1 tablet by mouth three times daily [...] mg by mouth three times daily as needed.azithromycin 250 mg oral tablet (10 sources)Macrolide AntimicrobialStart: 25-45-2727Sjifhzohohiy 250 MG as directed Orally daily for 5 days Aug, ActiveStart: 04-26-2023 Azithromycin 250 MG as directed Orally daily for 5 days Mar, Ezpvht817 actuat budesonide 0.16 mg/actuat / formoterol fumarate 0.0045 mg/actuat metered dose inhaler (20 sources)Corticosteroid, beta2-Adrenergic AgonistStart: 01-38-4040prlk 1 puff(s) by inhalation twice dailyBudesonide-Formoterol (Symbicort) 160-4.5 mcg/actuation HFA aerosol inhaler Active 2 PUFF INHALATION Twice daily August 21, 2025 12:00am Complies with drug therapyStart: 75-46-7717irai 2 puff(s) by inhalation every twelve hoursSymbicort 160-4.5 mcg/actuation inhaler Inhale 2 puffs every 12 hours. 12/31/2024 ActiveStart: 12-29-2024 End: 59-22-7895odlt 1 puff(s) by inhalation every twelve hoursBudesonide- Formoterol 160-4.5 mcg/actuation HFA aerosol inhaler Discontinued 2 PUFF INHALATION Every 12 hours 30.6 90 0 December 31, 2024 10:25am February 12, 2025 7:54cj536 actuat budesonide 0.16 mg/actuat / formoterol fumarate 0.0048 mg/actuat / glycopyrrolate 0.009 mg/actuat metered dose inhaler (1 source)Corticosteroid, beta2-Adrenergic AgonistStart: 29-47-1454bztc 2 puff(s) by inhalation twice dailyBreztri Aerosphere 160-9-4.8 MCG/ACT 2 puffs Inhalation Twice a day Sample Apr, Activeclopidogrel 75 mg oral tablet (20 sources)P2Y12 Platelet InhibitorStart: 26-74-1991sztt 1 tablet by mouth once dailyClopidogrel 75 mg tablet Active 0 .ROUTE .COMPLEX 90 3 July 07, 2025 7:34am TAKE 1 TABLET BY MOUTH DAILY Complies with drug therapyStart: 05-09-2023 End: 19-67-6392htmf 1 tablet by mouth once dailyClopidogrel 75 mg tablet Discontinued 75 MG PO Daily May 17, 2023 12:00am June 16, 2024 11:42am Start: 05-09-2023 End: 29-05-8780fnzekrpdwaa (PLAVIX) 75 mg tablet TAKE 8 TABLETS BY MOUTH ON DAY ONE THEN TAKE 1 TABLET BY MOUTH DAILY 05/09/2023 ActiveComment on above:TAKE 8 TABLETS BY MOUTH ON DAY ONE THEN TAKE 1 TABLET BY MOUTH DAILYcodeine phosphate 2 mg/ml / guaiFENesin 20 mg/ml oral solution (6 sources)Opioid AgonistStart: 61-17-9999wfbs 10 mL by mouth four times daily as needed for coughguaiFENesin-Codeine 100-10 MG/5ML 10 mL as needed Orally qid as needed for cough for 7 days Activeenteric contrast (will be provided with radiology test) (1 source)Start: 05-29-2022 End: 17-27-9736agnelsm contrast (will be provided with radiology test) [...] enteric contrast guidelinesFluticasone-Salmeterol 115-21 MCG/ACT (16 sources)Start: 22-25-1270pkju 2 puff(s) by inhalation twice daily Fluticasone-Salmeterol 115-21 MCG/ACT 2 puffs Inhalation Twice a day Apr, ActiveStart: 38-83-5006ehff 2 puff(s) by inhalation twice dailyFluticasone- Salmeterol 115-21 MCG/ACT 2 puffs Inhalation Twice a day for 30 days Apr, Activefurosemide 40 mg oral tablet (20 sources)Loop DiureticStart: 91-35-3247mqrh 2 tablets by mouth twice daily Start: 08-11-2025 End: 05-83-2586srnb 1 tablet by mouth twice dailyFurosemide 40 mg tablet Discontinued 40 MG PO Twice daily 60 0 August 11, 2025 12:00am August 21, 2025 11:51amStart: 10-06-2024 End: 15-61-5490Dxfteygoxr 20 mg tablet Discontinued 0 .ROUTE .COMPLEX 180 3 October 06, 2024 1:59pm December 19, 2024 5:28pm TAKE 1 TABLET BY MOUTH 1 TO 2 TIMES DAILY NEEDEDStart: 05-18-2023 End: 36-49-4460fmaa 1 tablet by mouth twice dailyFurosemide 20 mg tablet Discontinued 20 MG PO Twice daily 180 3 December 23, 2024 2:16pm February 12, 2025 7:05amStart: 05-18-2023 End: 69-97-9143kldu 1 tablet by mouth three times weeklyFurosemide 20 mg tablet Discontinued 20 MG PO every other day 30 0 May 18, 2023 11:38am 2023 2:00pm on even days 3 times a week. Goal weight is 195lbs, if you notice your weight trending up please take an extra dose as instructed by your PCP Start: 41-71-9375Hjpbmtgrsf 20 MG Oral Tablet one tablet M, W, F Quantity: 36 Refills: 3 Ordered: 21-Mar-2023 Edinson Perry DO Start : 21-Mar-2023 Active new doseStart: 03-08-2023 End: 08-79-6918Ymofbxutva 20 mg tablet Discontinued 20 MG PO every other day March 08, 2023 12:00am May 18, 2023 11:39am on even days 3 times a weekStart: 03-08-2023 End: 68-35-9442sfmd 1 tablet by mouth once dailyFurosemide 20 mg tablet Discontinued 20 MG PO Daily February 12, 2025 12:00am June 19, 2025 10:05am Furosemide 20 MG TAKE 1 TABLET BY MOUTH 1 TO 2 TIMES DAILY NEEDED for 90 Activegabapentin 100 mg oral capsule (20 sources)Anti-epileptic AgentStart: 08-15-2024 End: 64-65-3850bdaw 1 capsule by mouth twice dailyGabapentin 100 mg capsule Active 0 .ROUTE .COMPLEX 180 3 July 07, 2025 7:34am TAKE 1 CAPSULE BY MOUTH TWICE DAILY Complies with drug therapyStart: 03-08-2023 End: 98-20-5071nvvf 1 capsule by mouth three times dailyGabapentin [...] with radiology test) (1 source)Start: 05-29-2022 End: 09-93-3722qr contrast (will be provided with radiology test) [...] protocol in the CT contrast administration guidelines link.metOLazone 5 mg oral tablet (1 source)Thiazide-like DiureticStart: 42-70-4669lxct 1 tablet by mouth once daily as neededMetolazone 5 mg tablet Active 5 MG PO Daily as needed August 21, 2025 12:00am Complies with drugtherapyNIFEdipine 60 mg osmotic 24 hr extended release oral tablet (20 sources)Dihydropyridine Calcium Channel BlockerStart: 08-11-2025 End: 65-03-4085coym 1 tablet by mouth once dailyStart: 02-20-2024 End: 38-62-2865wgbv 1 tablet by mouth once dailyNifedipine 30 mg tablet extended release 24hr Discontinued 30 MG PO Daily February 26, 2024 12:00am March 19, 2024 2:54pmStart: 09-88-4741cczl 1 tablet by mouth every twenty-four hours NIFEdipine ER (PROCARDIA XL) 30 mg 24 hr tablet Take 30 mg by mouth. 02/20/2024 Activenitrofurantoin, macrocrystals 25 mg / nitrofurantoin, monohydrate 75 mg oral capsule (11 sources)Nitrofuran AntibacterialStart: 49-88-5290yric 1 capsule by mouth every twelve hoursNitrofurantoin Monohyd Macro 100 MG 1 capsule with food Orally every 12 hrs for 5 days Jun,ctivepantoprazole 40 mg delayed release oral tablet (20 sources)Proton Pump InhibitorStart: 07-43-2025mlaq 1 tablet by mouth once daily at breakfastPantoprazole 40 mg tablet,delayed release (DR/EC) Active 0 .ROUTE .COMPLEX 90 November 18, 2024 8:28am TAKE 1 TABLET BY MOUTH DAILY ON AN EMPTY STOMACH FOLLOWED IN 1/2 HOUR BY BREAKFAST Complies with drug therapy Start: 07-05-2021 End: 39-27-6111fiom 1 tablet by mouth once daily in the morningPantoprazole 40 mg tablet,delayed release (DR/EC) Discontinued 40 MG PO Every morning March 08, 2023 12:00am November 18, 2024 8:28amPantoprazole Sodium 40 MG Oral Packet Take 1 tablet by mouth on a empty stomach Quantity: 0 Refills: 0 Ordered: 07-Mar-2023 DO ActivePantoprazole Sodium Not-Takingrosuvastatin calcium 40 mg oral tablet (20 sources)HMG-CoA Reductase InhibitorStart: 51-65-9170mzff 1 tablet by mouth once dailyRosuvastatin 40 mg tablet Active 0 .ROUTE .COMPLEX 90 November 18, 2024 8:24am TAKE 1 TABLET BY MOUTH DAILY Complies with drug therapyStart: 82-03-1059mhtg 1 tablet by mouth once dailyRosuvastatin 40 mg tablet Active 0 .ROUTE .COMPLEX 90 November 18, 2024 8:24am TAKE 1 TABLET BY MOUTH DAILYStart: 02-02-2024 End: 69-16-7270mgrh 1 tablet by mouth once dailyRosuvastatin 40 mg tablet Discontinued 40 MG PO Daily 30 30 0 February 06, 2024 12:11pm November 18, 2024 8:24amtriamcinolone acetonide 5 mg/ml topical cream (20 sources)CorticosteroidStart: 84-35-2841wbonmdakivxyg (Kenalog) 0.5 % cream 01/31/2024 ActiveStart: 02-41-7406luecvqksobiyf (Kenalog) 0.5 % cream Twice daily 01/31/2024 ActiveStart: 01-31-2024 End: 72-20-7963Qlsmpgisgaphq Acetonide 0.5 % cream Discontinued 1 APPLIC TOPICAL Twice daily January 31, 2024 12:00am February 12, 2025 6:39amStart: 01-31-2024 End: 05-67-5260Ayylrginoofep Acetonide 0.1 % paste Discontinued 1 APPLIC DENTAL January 31, 2024 12:00am February 12, 2025 6:39am 1 application do not rinse afterwards and avoid eating or drinking for 30 minutes Mouth/Throat Twice a day Start: 24-94-9418Snmqtqtsjjzbh Acetonide 0.1 % 1 application do not rinse afterwards and avoid eating or drinking for 30 minutes Mouth/Throat Twice a day for 7 days Jul, ActiveStart: 02-48-4280Cwpihyhtrvzgu Acetonide 0.5 % 1 application Externally Two times a day for 14 days Mar, ActiveStart: 19-55-5892Mfciprlghaolz Acetonide 0.5 % 1 application Externally Two times a day for 14 days Mar, ActiveUmeclidinium-Vilanterol (20 sources)Anticholinergic, beta2-Adrenergic AgonistStart: 05-19-2025 Umeclidinium-Vilanterol (Anoro Ellipta) 62.5-25 mcg/actuation blister with device Active 1 INH INHALATION Daily 180 90 3 May 19, 2025 3:59pm Complies with drug therapyStart: 50-62-9538Ptcbr: 47-58-4488Lhohk: 05-19-2025 Umeclidinium-Vilanterol (Anoro Ellipta) 62.5-25 mcg/actuation blister with device Active 1 INH INHALATION Daily 180 90 May 19, 2025 3:59pm Complies with drug therapyStart: 05-15-2025 End: 69-99-8990Decehccinyzg-Vilanterol (Anoro Ellipta) 62.5-25 mcg/actuation blister with device Discontinued 1 INH INHALATION Daily 180 90 3 May 15, 2025 11:55am May 19, 2025 4:04pmStart: 05-15-2025 End: 02-89-3656Mzpcmstzyyfn-Vilanterol (Anoro Ellipta) 62.5-25 mcg/actuation blister with device Discontinued 1 INH INHALATION Daily 180 90 May 15, 2025 11:55am May 19, 2025 4:04pmStart: 03-19-2025 End: 93-72-0232Etqkqkfgatyf-Vilanterol (Anoro Ellipta) 62.5-25 mcg/actuation blister with device Discontinued 1 INH INHALATION Daily 180 90 3 March 19, 2025 11:38am May 15, 2025 11:55amStart: 03-19-2025 End: 99-54-0087Hulchabjmpvm-Vilanterol (Anoro Ellipta) 62.5-25 mcg/actuation blister with device Discontinued 1 INH INHALATION Daily 180 90 March 19, 2025 11:38am May 15, 2025 11:55amStart: 03-19-2025 End: 38-74-9483Jgszozqvaaqq-Vilanterol (Anoro Ellipta) 62.5-25 mcg/actuation blister with device Discontinued 1 INH INHALATION Daily 60 30 0 March 19, 2025 11:37am March 19, 2025 11:46amStart: 03-13-2025 End: 44-74-9548Qdhwmdijavie-Vilanterol (Anoro Ellipta) 62.5-25 mcg/actuation blister with device Discontinued 1 INH INHALATION Daily 60 30 5 March 13, 2025 9:43am March 13, 2025 1:43pmStart: 40-82-9469Xqhfw Ellipta 62.5-25 MCG/ACT aerosol powder USE 1 INHALATION BY MOUTH DAILY 02/12/2025 ActiveStart: 02-12-2025 End: 29-99-8157Czvwewvfdtpo-Vilanterol (Anoro Ellipta) 62.5-25 mcg/actuation blister with device Discontinued 1 INH INHALATION Daily 60 30 0 February 12, 2025 12:00am March 13, 2025 1:20pmStart: 02-12-2025 End: 45-46-2774Lhnmmsderoha-Vilanterol (Anoro Ellipta) 62.5-25 mcg/actuation blister with device Discontinued 1 INH INHALATION Daily 60 30 February 12, 2025 12:00am March 13, 2025 1:20pmUmeclidinium-Vilanterol (Anoro Ellipta) 62.5-25 mcg/actuation blister with device (1 source)Start: 63-69-9858Lxnjufrdezba-Vilanterol (Anoro Ellipta) 62.5-25 mcg/actuation blister with device Active 1 INH INHALATION Daily 180 90 March 19, 2025 11:38amvalsartan 80 mg oral tablet (20 sources)Angiotensin 2 Receptor BlockerStart: 10-08-2024 End: 49-37-8746lnhp 1 tablet by mouth once dailyValsartan 80 mg tablet Active 80 MG PO Daily 90 90 3 June 19, 2025 3:16pm Complies with drug therapy{20 (nirmatrelvir 150 MG Oral Tablet) / 10 (ritonavir 100 MG Oral Tablet) } Pack [Paxlovid 5-Day] (9 sources)Start: 50-38-6245phez 3 tablets by mouth every twelve hoursPaxlovid (300/100) 20 x 150 MG & 10 x 100MG 3 tablets Orally Twice a day for 5 days Jun, Active Completed/Discontinued Medications MedicationDrug Class(es)DatesSig (Normalized)Sig (Original)[id number] 200 actuat albuterol 0.09 mg/actuat metered dose inhaler (20 sources)beta2-Adrenergic AgonistStart: 72-48-4499ckirbiqbe HFA 90 mcg/act inhaler 01/31/2024 ActiveStart: 35-30-0290pmgqvciew HFA 90 mcg/act inhaler Every 6 hours 01/31/2024 ActiveStart: 01-31-2024 End: 87-92-0443nrjb 1 puff(s) by inhalation every six hours as needed for wheezingAlbuterol Sulfate 90 mcg/actuation HFA aerosol inhaler Discontinued 2 PUFF INHALATION Every 6 hoursas needed for shortness of breath or wheezing 8.5 5 November 26, 2024 10:19am August 21, 2025 11:51amStart: 77-49-3302qdck 2 puff(s) by inhalation every six hours as needed for coughAlbuterol Sulfate HFA 108 (90 Base) MCG/ACT 2 puff Inhalation every 6 hours as needed for cough, SOB Mar, ActiveStart: 97-24-3195llrz 2 puff(s) by inhalation every six hours as needed for coughAlbuterol Sulfate HFA 108 (90 Base) MCG/ACT 2 puff Inhalation every 6 hours as needed for cough, SOB Mar, ActiveStart: 91-56-3259junk 2 puff(s) by inhalation every six hours as needed for coughAlbuterol Sulfate HFA 108 (90 Base) MCG/ACT 2 puff Inhalation every 6 hours as needed for cough, SOB Mar, ActiveStart: 83-24-8751vxvn 2 puff(s) by inhalation every four hours as needed for coughAlbuterol Sulfate HFA 108 (90 Base) MCG/ACT 2 puffs as needed Inhalation every 4 hrs for As needed for cough or wheeze February, Not-Takingascorbic acid 500 mg oral tablet (19 sources)Vitamin CStart: 03-08-2023 End: 59-58-7201yuma 1 tablet by mouth once dailyAscorbic Acid (Vitamin C) (Vitamin C) 500 mg Tablet Discontinued 500 MG PO Daily March 08, 2023 12:00am May 17, 2023 10:50amaspirin 81 mg oral tablet (20 sources)Platelet Aggregation Inhibitor, Nonsteroidal Anti-inflammatory Drug Start: 04-18-2023 End: 49-65-8428eknn 1 capsule by mouth once dailyAspirin 81 mg capsule Discontinued 81 MG PO Daily February 12, 2025 12:00am March 19, 2025 11:46am Start: 03-07-2023 End: 25-34-8338ldkz 1 tablet by mouth once daily in the morningAspirin 81 mg tablet,delayed release (DR/EC) Discontinued 81 MG PO Every morning February 27, 2024 10:00am December 16, 2024 11:47am blood thinner every Mon, Wed, and FriComment on above:Take by mouth.benazepril (20 sources)Angiotensin Converting Enzyme InhibitorBenazepril HCl Not-Taking benzonatate 100 mg oral capsule (20 sources)Non-narcotic AntitussiveStart: 39-03-3242vudo 1 capsule by mouth every eight hoursBenzonatate 100 MG 1 capsule as needed Orally Three times a day for As needed for cough or wheeze February, Not-Takingbumetanide 1 mg oral tablet (13 sources)Loop DiureticStart: 07-06-2025 End: 03-84-8802hdgx 1 tablet by mouth twice dailyBumetanide 1 mg tablet Discontinued 1 MG PO Twice daily 60 30 2 July 06, 2025 6:16pm July 292024 8:00pmStart: 06-19-2025 End: 57-83-5726pcgu 1 tablet by mouth twice dailyBumetanide 0.5 mg tablet Discontinued 0.5 MG PO Twice daily 60 30 0 July 03, 2025 12:14pm July 06, 2025 6:18pmbusPIRone (20 sources)busPIRone HCl Not-TakingCalcium Carbonate (9 sources) End: 90-68-6272gufwbsk carbonate (CALCIUM 600 ORAL) Take by mouth. 07/08/2025 Discontinued (Discontinued by another Health Care Provider)calcium carbonate (CALCIUM 600 ORAL) Take by mouth. Activecalcium carbonate (CALCIUM 600 ORAL) Take by mouth. 0 ActiveComment on above:Take by mouth.calcium carbonate 1500 mg / cholecalciferol 0.01 mg oral tablet (19 sources)Vitamin DStart: 03-08-2023 End: 92-17-0714mnga 1 tablet by mouth once dailyCalcium Carbonate-Vitamin D3 (Calcium 600 + D(3)) 600 mg-10 mcg (400 unit) Tablet Discontinued 1 TAB PO Daily March 08, 2023 12:00am May 17, 2023 10:50amcarvedilol 3.125 mg oral tablet (20 sources)alpha-Adrenergic Humaira, beta-Adrenergic BlockerStart: 04-20-2024 End: 22-11-3278rychoovciw (Coreg) 3.125 MG tablet 04/20/2024 11/25/2024 Discontinued (Therapy completed)Start: 02-11-2024 End: 61-82-7826thdi 1 tablet by mouth twice daily at mealtimeCarvedilol 3.125 mg tablet Discontinued 0 .ROUTE .COMPLEX 180 3 February 11, 2024 7:04am February 26, 2024 10:53am TAKE 1 TABLET BY MOUTH TWICE DAILY WITH FOODStart: 05-18-2023 End: 01-19-7367Mwdohitgie 3.125 mg tablet Discontinued 12.5 MG PO Twice daily 30 May 18, 2023 11:38am May 18, 2023 2:48pm Please do not take if you are feeling lightheaded or have a blood pressure less [id number] systolic at homeStart: 05-18-2023 End: 35-48-0346Pdvbrbxtxc Discontinued 12.5 MG PO Twice daily May 18, 2023 11:38am May 18, 2023 2:48pm Please do not take if you are feeling lightheaded or have a blood pressure less than 120 systolic at homeStart: 05-18-2023 End: 51-26-4572ebpl 1 tablet by mouth twice daily at mealtimeCarvedilol (Coreg) 12.5 mg tablet Discontinued 12.5 MG PO Twice daily 60 0 May 18, 2023 12:00am January 31, 2024 10:34am must administer with a meal/foodStart: 02-14-2023 End: 84-45-9586rcwy 1 tablet by mouth twice dailyCarvedilol 3.125 mg tablet Discontinued 3.125 MG PO Twice daily January 31, 2024 12:00am January 7:04amComment on above:TAKE 1 TABLET BY MOUTH TWICE A DAY WITH FOOD/MEALcefdinir 300 mg oral capsule (20 sources)Cephalosporin AntibacterialStart: 05-19-2025 End: 76-34-2619irmk 1 capsule by mouth twice dailyCefdinir 300 mg capsule Discontinued 300 MG PO Twice daily 10 5 0 May 19, 2025 12:00am June 19, 2025 9:32amStart: 02-13-2024 End: 92-04-1809xvdx 1 capsule by mouth twice dailyCefdinir 300 mg capsule Discontinued 300 MG PO Twice daily 14 7 0 February 13, 2024 12:00am February 26, 2024 10:49am Right otitis media Dysfunction of eustachian tube Otitis media, unspecified, right ear Unspecified Eustachian tube disorder, unspecified ear Fluticasone Propion-Salmeterol (20 sources)Corticosteroid, beta2-Adrenergic AgonistStart: 11-26-2024 End: 51-24-4754mydb 1 puff(s) by inhalation every twelve hoursFluticasone Propion-Salmeterol (Advair Hfa) 115-21 mcg/actuation HFA aerosol inhaler Discontinued 2PUFF INHALATION Every 12 hours 10 27 11November 26, 2024 10:19am February 12, 2025 6:38am On Hold:NoneStart: 11-26-2024 End: 13-76-6998xdfi 1 puff(s) by inhalation every twelve hoursFluticasone Propion-Salmeterol (Advair Hfa) 115-21 mcg/actuation HFA aerosol inhaler Discontinued 2PUFF INHALATION Every 12 hours 10 27November 26, 2024 10:19am February 12, 2025 6:38am On Hold: NoneStart: 09-15-4994dcra 1 puff(s) by inhalation every twelve hoursFluticasone Propion-Salmeterol (Advair Hfa) 115-21 mcg/actuation HFA aerosol inhaler Active 2 PUFF INHALATION Every 12 hours 10 27November 26, 2024 10:19am On Hold: NoneStart: 35-96-5207epky 1 puff(s) by inhalation every twelve hoursFluticasone Propion-Salmeterol (Advair Hfa) 115-21 mcg/actuation HFA aerosol inhaler Active 2 PUFF INHALATION Every 12 hours 10 27November 26, 2024 9:19am On Hold: NoneStart: 05-17-2023 End: 03-64-0747qgwb 1 puff(s) by inhalation twice dailyFluticasone Propion- Salmeterol (Advair Hfa) 115-21 mcg/actuation HFA aerosol inhaler Discontinued 2 PUFF INHALATION Twice daily May 17, 2023 12:00am November 26, 2024 10:19am Start: 05-17-2023 End: 15-70-2099yisj 1 puff(s) by inhalation twice dailyFluticasone Propion- Salmeterol (Advair Hfa) 115-21 mcg/actuation HFA aerosol inhaler Discontinued 2 PUFF INHALATION Twice daily May 16, 2023 11:00pm November 26, 2024 9:19am Start: 71-57-8264vcal 1 puff(s) by inhalation twice dailyFluticasone Propion- Salmeterol (Advair Hfa) 115-21 mcg/actuation HFA aerosol inhaler Active 2 PUFF I NHALATION Twice daily May 16, 2023 11:00pmStart: 58-29-2847irqc 1 puff(s) by inhalation twice dailyFluticasone Propion-Salmeterol (Advair Hfa) 115-21 mcg/actuation HFA aerosol inhaler Active 2 PUFF INHALATION Twice daily May 17, 2023 12:00amStart: 24-51-3452bzhc 2 puff(s) by inhalation twice daily Fluticasone-Salmeterol 115-21 MCG/ACT 2 puffs Inhalation Twice a day Apr, Active End: 36-03-9709tjeb 2 puff(s) by inhalation in the morningfluticasone-salmeterol (Advair) 45-21 MCG/ACT inhaler Inhale 2 puffs in the morning and 2 puffs before bedtime. Rinse mouth with water after use to reduce aftertaste and incidence of candidiasis. Do not swallow. 02/25/2025 Discontinued (Therapy completed) irbesartan 150 mg oral tablet (20 sources)Angiotensin 2 Receptor BlockerStart: 11-28-2022 End: 14-92-3682ztjh 1 tablet by mouth once daily in the morningIrbesartan 150 mg tablet Discontinued 150 MG PO Every morning March 08, 2023 12:00am February 27, 2024 10:37amtake 1 tablet by mouth twice dailyIrbesartan 150 MG 1 tablet Orally twice daily Activelevothyroxine sodium 0.075 mg oral tablet (18 sources)l-ThyroxineStart: 02-19-2024 End: 92-45-5524uhcl 1 tablet by mouth once dailyLevothyroxine 75 mcg tablet Discontinued 75 MCG PO Daily February 26, 2024 12:00am September 15, 2024 10:40amlosartan potassium 50 mg oral tablet (20 sources)Angiotensin 2 Receptor BlockerStart: 01-31-2024 End: 12-56-6358tzfo 1 tablet by mouth twice dailyLosartan 50 mg tablet Discontinued 50 MG PO Twice daily January 31, 2024 12:00am February 26, 2024 10: 53amStart: 65-41-1581pyvv 1 tablet by mouth twice dailyLosartan Potassium 50 MG 1 tablet Orally twice daily May, Active End: 76-47-3450krej 1 tablet by mouth once dailylosartan (COZAAR) 100 mg tablet Take 100 mg by mouth once daily. 07/08/2025 Discontinued (Discontinued by another Health Care Provider)take 1 tablet by mouth once dailyLosartan Potassium 50 MG 1 tablet Orally Once a day for 90 days ActiveComment on above:Take 100 mg by mouth once daily.MULTI-VITAMIN ORAL (9 sources) End: 50-31-3934SWLDW-VITAMIN ORAL Take by mouth. 07/08/2025 Discontinued (Discontinued by another Health Care Provider)MULTI-VITAMIN ORAL Take by mouth. ActiveMULTI-VITAMIN ORAL Take by mouth. 0 ActiveComment on above:Take by mouth. Multivitamin preparation (7 sources)Start: 03-08-2023 End: 92-72-0387skjt 1 tablet by mouth once dailyMultivitamin Discontinued 1 TAB PO Daily March 08, 2023 12:00am May 17, 2023 10:50amStart: 25-04-0691ynjg 1 tablet by mouth once dailyMultivitamin Active 1 TAB PO Daily March 08, 2023 12:00amMultivitamin Tablet (12 sources)Start: 03-08-2023 End: 28-07-6437tbze 1 tablet by mouth once dailyMultivitamin Tablet Discontinued 1 TAB PO Daily March 08, 2023 12:00am May 17, 2023 10:50amStart: 03-08-2023 End: 07-71-0437lkeh 1 tablet by mouth once dailyMultivitamin Tablet Discontinued 1 TAB PO Daily March 07, 2023 11:00pm May 17, 2023 9:50am24 hr nitroglycerin 0.2 mg/hr transdermal system (20 sources)Nitrate VasodilatorStart: 03-08-2023 End: 09-77-1990jhhwf 0.2 mg transdermal route every hourNitroglycerin 0.2 mg/hr patch 24 hour Discontinued 0.2 MG TRANSDERML Daily March 08, 2023 12:00am May 17, 2023 10:50amStart: 03-08-2023 End: 37-33-4855Mxaupwxtqggsx Discontinued 0.2 MG TRANSDERML Daily March 08, 2023 12:00am May 17, 2023 10:50amStart: 92-69-7307uxbeg 1 dose transdermal route once daily, then apply 1 dose transdermal route every twenty-four hours Nitroglycerin 0.2 MG/HR Transdermal Patch 24 Hour APPLY PATCH FOR 12 TO 14 HOURS DAILY, THEN REMOVEQuantity: 90 Refills: 3 Ordered: 07-Mar-2023 Edinson Perry DO Start : 07-Mar-2023 Active new startnystatin [id number] unt/ml oral suspension (6 sources)Polyene AntifungalStart: 02-16-2025 End: 41-69-2489dxsb 1 mL by mouth four times dailyNystatin 100,000 unit/mL suspension Discontinued 5 ML PO Four times daily 140 7 0 February 16, 2025 1 2:00am March 19, 2025 11:47am swish for 30 seconds and swallowNystatin 100,000 unit/mL suspension (1 source)Start: 02-16-2025 End: 82-59-5431krmm 1 mL by mouth four times dailyNystatin 100,000 unit/mL suspension Discontinued 5 ML PO Four times daily 140 7 February 16, 2025 12:00am March 19, 2025 11:47am swish for 30 seconds and swallowpotassium chloride 10 meq extended release oral tablet (20 sources)Start: 49-65-8176beyn 1 tablet by mouth twice dailypotassium chloride (K-TAB) 10 mEq tablet Take 10 mEq by mouth two times a day. 04/26/2023 ActiveStart: 03-08-2023 End: 27-97-0561Gotxtlvbb Chloride 10 mEq tablet extended release Discontinued 10 MEQ PO EVERY 3 WEEKS March 08, 2023 12:00am April 22, 2024 1:22pm 3 times a week on even daysStart: 03-08-2023 End: 84-65-3373lifw 1 tablet by mouth once dailyPotassium Chloride 10 mEq tablet extended release Discontinued 10 MEQ PO Daily February 12, 2025 12:00am August 21, 2025 11:51amtake 1 tablet by mouth at mealtime, then [...] pravastatin sodium 40 mg oral tablet (20 sources)HMG-CoA Reductase InhibitorStart: 03-08-2023 End: 70-36-7913bfxx 1 tablet by mouth once daily in the eveningPravastatin 40 mg tablet Discontinued 40 MG PO Every evening March 08, 2023 12:00am February 012:10pmComment on above:Take 40 mg by mouth every evening.predniSONE 20 mg oral tablet (20 sources)Start: 53-17-0132ntcg 1 tablet by mouth every twelve hourspredniSONE 20 MG 1 tablet with food or milk Orally Twice a day for 3 day(s) February, Not-Takingpsyllium 400 mg oral capsule (6 sources)Start: 03-08-2023 End: 55-05-5491Xaqlarhq Husk (Metamucil) 0.4 gram Capsule Discontinued 0.4 GM PO Daily as needed for Constipation March 08, 2023 12:00am May 17, 2023 10:50am Psyllium Husk (Metamucil) 0.4 gram Capsule (13 sources)Start: 03-08-2023 End: 72-25-3073Ylhnszgf Husk (Metamucil) 0.4 gram Capsule Discontinued 0.4 GM PO Daily as needed for Constipation March 08, 2023 12:00am May 17, 2023 10:50am Start: 03-08-2023 End: 30-52-6782Rbevtnbr Husk (Metamucil) 0.4 gram Capsule Discontinued 0.4 GM PO Daily as needed for Constipation March 07, 2023 11:00pm May 17, 2023 9:50am Start: 03-08-2023 End: 30-28-9261Wxkfqwzr Husk (Metamucil) 0.4 gram Capsule Discontinued 0.4 GM PO Daily March 08, 2023 12:00am 2022 10:50amStart: 54-30-1271Oeevevbd Husk (Metamucil) 0.4 gram Capsule Active 0.4 GM PO Daily March 08, 2023 12:00am regadenoson (Lexiscan) injection 0.4 mg (1 source)Start: 03-12-2024 End: .4 mg, intravenous, Once, On Sun03/12/24 at 0915, For 1 dose rOPINIRole 0.25 mg oral tablet (20 sources)Nonergot Dopamine AgonistStart: 11-23-2022 End: 03-10-8590ajnd 1 tablet by mouth once dailyRopinirole 0.25 mg tablet Discontinued 0.25 MG PO Daily 90 90 3 December 18, 2023 10:31am February 27, 2024 10:38amsacubitril 24 mg / valsartan 26 mg oral tablet (20 sources)Angiotensin 2 Receptor BlockerStart: 02-20-2024 End: 14-24-6273dkmz 1 tablet by mouth twice dailySacubitril-Valsartan (Entresto) 24-26 mg tablet Discontinued 1 TAB PO Twice daily February 26, 2024 12:00am March 19, 2024 2:54pmStart: 30-41-3216wuvd 1 tablet by mouth in the morningEntresto 24-26 MG tablet Take 1 tablet by mouth in the morning and 1 tablet in the evening. 02/20/2024 Activesulfamethoxazole 800 mg / trimethoprim 160 mg oral tablet (20 sources)Dihydrofolate Reductase Inhibitor Antibacterial, Sulfonamide AntimicrobialStart: 39-80-3294egth 1 tablet by mouth every twelve hoursBactrim [...] mg oral capsule (20 sources)BenzodiazepineStart: 12-21-2022 End: 77-52-7815rpna 1 capsule by mouth once daily at bedtimeTemazepam 15 mg capsule Discontinued 15 MG PO Daily at bedtime March 08, 2023 12:00am June 13, 2024 2:15pmTemazepam Not-TakingComment on above:Take by mouth at bedtime as needed.ticagrelor 90 mg oral tablet (20 sources)Start: 03-09-2023 End: 75-12-4609tewb 1 tablet by mouth twice dailyTicagrelor (Brilinta) 90 mg tablet Discontinued 90 MG PO Twice daily 180 3 March 09, 2023 12:00am May 17, 2023 2:07pm Problems Active Problems Problem ClassificationProblemDateDocumented DateEpisodic/ChronicAcute bronchitis (20 sources)Acute bronchitis; Translations: [Acute bronchitis, unspecified] Onset: 40-72-5703AjbsslgsMowhcka disorders (20 sources)Generalized anxiety disorder; Translations: [Generalized anxiety disorder]Onset: 64-96-0798UzujpdfBkzhlam dysrhythmias (20 sources)Palpitations; Translations: [Bradycardia, unspecified]Onset: 45-12-5320KxkmmrtaOslthfh kidney disease (20 sources)Chronic kidney disease; Translations: [Chronic kidney disease, unspecified]85-71-9484JnyazklEeyloqx obstructive pulmonary disease and bronchiectasis (20 sources)Simple chronic bronchitis; Translations: [Simple chronic bronchitis] Onset: 87-78-1102FrempbtEpcqlplgqg heart failure; nonhypertensive (20 sources)Acute on chronic diastolic heart failure; Translations: [Acute on chronic diastolic (congestive) heart failure]Onset: 17-51-6021ShdckxtQjlhflb on above:- LHC w/ PCI/stent LAD, RCA [...] III; Translations: [Other and unspecified angina pectoris]Onset: 21-80-5345TcnmaluAnaayif on above:LHC w/ PCI/stent LAD, RCA (Feb, 2023)Problem List clean-up per request of Phys. EHR CmteDeficiency and other anemia (1 source)Anemia of chronic disease; Translations: [Anemia in other chronic diseases classified elsewhere]62-50-5715WepeofaNaiermcyaw and other anemia (1 source)Anemia in other chronic diseases classified elsewhere; Translations: [Anemia in other chronic diseases classified elsewhere]Onset: 04-89-2838Vhvslva Deficiency and other anemia (20 sources)Anemia; Translations: [Anemia, unspecified]Onset: 11-24-2024 22-83-1876AfykpwioOrkrqpuyeu and other anemia (9 sources)Anemia, unspecified; Translations: [Anemia, unspecified]Onset: 87-27-7446RhfbtwcqGdpvuymk of mouth; excluding dental (20 sources)Stomatitis; Translations: [Other forms of stomatitis] Resolved: 15-79-1190KygvqisqCldadntua of lipid metabolism (20 sources)Pure hypercholesterolemia; Translations: [Familial hypercholesterolemia]Onset: 87-25-3679WggjfreUhsmzzt on above:Problem List clean-up per request of Phys. EHR CmteE Codes: Adverse effects of medical drugs (20 sources)Adverse reaction to drug; Translations: [Adverse effect of unspecified drugs, medicaments and biological substances, subsequent encounter] EpisodicEsophageal disorders (20 sources)Gastro-esophageal reflux disease with esophagitis; Translations: [Gastroesophageal reflux disease with esophagitis without hemorrhage]Onset: 203700-87-0882LicbdpjCvszkqput hypertension (20 sources)Essential hypertension; Translations: [Essential (primary) hypertension]Onset: 58-05-7271KvyqxomAnvrywl on above:Problem List clean-up per request of Phys. EHR CmteGenitourinary symptoms and ill-defined conditions (20 sources)Urinary tract infectious disease; Translations: [Unspecified symptoms and signs involving the genitourinary system]EpisodicHeadache; including migraine (20 sources)Episodic tension-type headache; Translations: [Episodic tension-type headache, not intractable]Onset: 33-81-7722RxyznotSwybzynhtdyt with complications and secondary hypertension (20 sources)Hypertensive heart disease with heart failure; Translations: [Hypertensive emergency]Onset: 054042-38-6449EdxeoumSksqbby on above: Problem List clean-up per request of Phys. EHR CmteImmunizations and screening for infectious disease (20 sources)Other specified abnormal immunological findings in serum; Translations: [Abnormal blood test]Onset: 491699-32-5158Xajmqmkn Lymphadenitis (20 sources)Submandibular lymphadenopathy; Translations: [Localized enlarged lymph nodes]Onset: 17-31-3995AmnrkpkvErbgplk and fatigue (20 sources)Malaise; Translations: [Other malaise] Resolved: 733121-76-6495QqufwpsbMadzijvkwq disorders (20 sources)Atrophic vaginitis; Translations: [Postmenopausal atrophic vaginitis]Onset: 987147-65-3312XvozmxxDleewgnobyuzr mental health disorders (20 sources)Primary insomnia; Translations: [Primary insomnia]ChronicNeoplasms of unspecified nature or uncertain behavior (20 sources)Monoclonal paraproteinemia; Translations: [Monoclonal gammopathy] ChronicOsteoarthritis (20 sources)Osteoarthritis; Translations: [Polyosteoarthritis, unspecified] Onset: 44-76-5366EuzhcvmTvmka aftercare (1 source)[facility] (current) use of aspirin; Translations: [[employer] CURRENT USE OF ASPIRIN]Onset: 06-48-3373ZvaxoqflHgvyt aftercare (1 source)Other prison (current) drug therapy; Translations: [OTH LONG-TERM CURRENT DRUG THERAPY]Onset: 00-00-6106UjbkvmlmMlylj and ill-defined heart disease (2 sources)Heart disease; Translations: [Heart disease, unspecified]06-06-2023 ChronicOther and ill-defined heart disease (1 source)Heart disease, unspecified; Translations: [Heart disease]Onset: 61-78-3042ZdjrwvzMbkda and unspecified benign neoplasm (20 sources)Lipoma of skin and subcutaneous tissue of neck; Translations: [Benign lipomatous neoplasm of skin and subcutaneous tissue of head, face and neck]EpisodicOther and unspecified benign neoplasm (20 sources)Lipoma of skin and subcutaneous tissue of face; Translations: [Benign lipomatous neoplasm of skin and subcutaneous tissue of head, face and neck]EpisodicOther connective tissue disease (8 sources)Cramp in lower limb; Translations: [Sleep related leg cramps] 15-43-9252UyxhsiyJztsw connective tissue disease (2 sources)Sleep related leg cramps; Translations: [Sleep related leg cramps] 73-79-6410DcrtfgqCzblb connective tissue disease (20 sources)Radial styloid tenosynovitis; Translations: [Radial styloid tenosynovitis [de [place]]]89-22-0641SffweinaRsmtg connective tissue disease (20 sources)Pain in right lower limb; Translations: [Pain in right leg]Episodic Other connective tissue disease (20 sources)Trochanteric bursitis of right hip; Translations: [Trochanteric bursitis, right hip]EpisodicOther connective tissue disease (1 source)Radial styloid tenosynovitis [[place]]; Translations: [Radial styloid tenosynovitis [de [place]]]EpisodicOther diseases of veins and lymphatics (20 sources)Peripheral venous insufficiency; Translations: [Venous insufficiency (chronic) (peripheral)]Onset: 372723-12-6981UmznfwnaGazej diseases of veins and lymphatics (20 sources)Venous insufficiency (chronic) (peripheral); Translations: [Venous (peripheral) insufficiency, unspecified]Onset: 38-40-1059TtvdudkfPzktx diseases of veins and lymphatics (20 sources)Stasis dermatitis; Translations: [Venous insufficiency (chronic) (peripheral)]EpisodicOther endocrine disorders (20 sources)Disorder of adrenal gland; Translations: [Disorder of adrenal gland, unspecified]ChronicOther endocrine disorders (20 sources)Other specified disorders of adrenal gland; Translations: [Nodule of adrenal cortex (disorder)]ChronicOther endocrine disorders (1 source)Disorder of adrenal gland, unspecifiedChronicOther endocrine disorders (20 sources)Adrenal mass; Translations: [Other specified disorders of adrenal gland]Onset: 649591-91-8487JfenivuNkglt eye disorders (20 sources)Ptosis of eyelid; Translations: [Unspecified ptosis of right eyelid] EpisodicOther female genital disorders (20 sources)Noninflammatory disorder of the vagina; Translations: [Other specified noninflammatory disorders ofvagina]EpisodicOther gastrointestinal disorders (20 sources)Irritable bowel syndrome with diarrhea; Translations: [Irritable bowel syndrome with diarrhea]54-07-7311KlrjhxrEsdaw hematologic conditions (5 sources)Protein electrophoresis abnormal; Translations: [Other specified abnormalities of plasma proteins]EpisodicOther hematologic conditions (2 sources)Other specified abnormalities of plasma proteins; Translations: [OTH SPEC ABNORM PLASMA PROTEINS]Onset: 78-82-2024VbsauccfXmqwx hereditary and degenerative nervous system conditions (20 sources)Restless legs; Translations: [Restless legs syndrome]01-31-2024 ChronicOther hereditary and degenerative nervous system conditions (5 sources)Restless legs syndrome; Translations: [Restless legs syndrome]Onset: 02-05-9043NnloupsGkehx injuries and conditions due to external causes [...] sources)Shortness of breath; Translations: [SHORTNESS OF BREATH]Onset: 31-20-5686VzghfjjxAltfx lower respiratory disease (20 sources)Acute cardiac pulmonary edema ; Translations: [Acute pulmonary edema]Onset: 465091-82-1173LqoqvsysVgypzgn on above:Problem List clean-up per request of Phys. EHR CmteOther lower respiratory disease (18 sources)Hypoxia; Translations: [Hypoxemia]96-99-8092LqfuxggqLdtcdxp on above:Problem List clean-up per request of Phys. EHR CmteOther lower respiratory disease (1 source)Acute pulmonary edema; Translations: [Acute edema of lung, unspecified]18-48-3727ZswaujhfGpqkd lower respiratory disease (1 source)Hypoxemia; Translations: [Hypoxemia]68-84-8432RojkkmyhRaqsh nervous system disorders (20 sources)Neuropathy; Translations: [Polyneuropathy, [...] on feet; Translations: [Unsteadiness on feet]Episodic Other nervous system disorders (2 sources)Skin tenderness; Translations: [Other disturbances of skin sensation] 02-94-8507ObpiualjXqsqo non-traumatic joint disorders (20 sources)Arthralgia of the [...] knee; Translations: [Chronic pain of right knee] 19-62-7292FhwcuwfsQfudg non-traumatic joint disorders (1 source)Hip pain; Translations: [Pain in right hip]51-18-0482SukqejmtOtvsn nutritional; endocrine; and metabolic disorders (20 sources)Simple obesity ; Translations: [Exogenous obesity]90-31-5147Hlalolp Other nutritional; endocrine; and metabolic disorders (20 sources)Obese class I; Translations: [Obesity, unspecified]ChronicOther nutritional; endocrine; and metabolic disorders (2 sources)Obesity, unspecifiedChronicOther nutritional; endocrine; and metabolic disorders (20 sources)Obesity; Translations: [Obesity, unspecified]37-94-9034HrepbccMcfde nutritional; endocrine; and metabolic disorders (20 sources)Obesity caused by energy imbalance; Translations: [Other obesity due to excess calories]ChronicOther nutritional; endocrine; and metabolic disorders (20 sources)Body mass index 30+ - obesity; Translations: [Body mass index (BMI) 32.0-32.9, adult]Onset: 174299-86-5898XruyyyyZrnfz nutritional; endocrine; and metabolic disorders (4 sources)Other obesity due to excess caloriesChronicOther nutritional; endocrine; and metabolic disorders (5 sources)Body mass index (BMI) 32.0-32.9, adult; Translations: [Body mass index (BMI) 32.0-32.9, adult]Onset: 56-65-9502AyvdlrkJkfzq nutritional; endocrine; and metabolic disorders (3 sources)Body mass index (BMI) 33.0-33.9, adult; Translations: [Body mass index (BMI) 33.0-33.9, adult]Onset: 30-74-6732RremfuoCqddm screening for suspected conditions (not mental disorders or infectious disease) (20 sources)Encounter for screening mammogram for malignant neoplasm of breast; Translations: [Cardiovascular stress test abnormal]Onset: 98-49-0789Acveqpoh Comment on above:Problem List clean-up per request of Phys. EHR CmteOther skin disorders (1 source)Localized swelling, mass and lump, neckEpisodicOther skin disorders (4 sources)Hemosiderin pigmentation of skin; Translations: [Other specified disorders of pigmentation]90-72-1748HcokzqpqAidab upper respiratory disease (20 sources)Seasonal allergic rhinitis; Translations: [Other seasonal allergic rhinitis]Onset: 92-45-9344GtrtayiQasiz upper respiratory disease (20 sources)Allergic rhinitis; Translations: [Allergic rhinitis, unspecified] Onset: 80-08-7300HkquqjdDyxag upper respiratory disease (20 sources)Vasomotor rhinitis; Translations: [Vasomotor rhinitis]Onset: 58-57-3956ZuuibqmFxaip upper respiratory infections (20 sources)Acute sinusitis; Translations: [Acute sinusitis, unspecified]Onset: 19-79-0509CxxrbqwmBkreel media and related conditions (20 sources)Otitis media; Translations: [Otitis media, unspecified, unspecified ear]57-33-5146XsbusgdqAddbcfobuh and visceral atherosclerosis (1 source)Atherosclerosis of [place] arteries of extremities with intermittent claudication, bilateral legs; Translations: [Atherosclerosis of [place] arteries of extremities with intermittent claudication, bilateral legs]Onset: 08-19-2025 ChronicPneumonia (except that caused by tuberculosis or sexually transmitted disease) (1 source)Pneumonia, unspecified organism; Translations: [PNEUMONIA UNSPECIFIED ORGANISM]Onset: 35-14-3697QlagxsmuWubvrypiq heart disease (20 sources)Pulmonary hypertension; Translations: [Pulmonary hypertension, unspecified]ChronicResidual codes; unclassified (12 sources)Asymptomatic menopausal state; Translations: [Menopause]Episodic Residual codes; unclassified (20 sources)Menopause present; Translations: [Asymptomatic menopausal state] 62-21-8038FwjkgicoCimpjkpz codes; unclassified (1 source)Family history of malignant neoplasm of bladder; Translations: [FAM HX MALIGNANT NEOPLASM BLADDER]Onset: 00-90-2928VwgmiwloNcdtwzrl codes; unclassified (1 source)Family history of malignant neoplasm of digestive organs; Translations: [FAM HX MALIG NEOPLASM DIGESTIV ORGN]Onset: 48-42-3484Aqvrrqcv Residual codes; unclassified (1 source)Family history of other malignant neoplasms of lymphoid, hematopoietic and related tissues; Translations: [FAM HX OTH MAL TANJA LYMPH HEMATPOETC]Onset: 69-76-6834WqagznzlKkxtenjs codes; unclassified (1 source)Family history of malignant neoplasm of trachea, bronchus and lung; Translations: [FAM HX MALIG NEOPLSM TRACH BRON LNG]Onset: 06-72-3232Wvyqzfmw Residual codes; unclassified (20 sources)Postmenopausal state; Translations: [Asymptomatic menopausal state] EpisodicResidual codes; unclassified (19 sources)Symptom: generalized; Translations: [Other general symptoms and signs]EpisodicResidual codes; unclassified (1 source)Other general symptoms and signs; Translations: [Other general symptoms and signs]EpisodicResidual codes; unclassified (1 source)Edema; Translations: [Edema, unspecified]77-37-8903DtjilkgzOotoktyv codes; unclassified (4 sources)Bilateral lower limb edema; Translations: [Localized edema]08-04-2025 EpisodicResidual codes; unclassified (1 source)Localized edema; Translations: [Localized edema]Onset: 08-19-2025 EpisodicRespiratory failure; insufficiency; arrest (adult) (2 sources)Requires continuous home oxygen supply; Translations: [Dependence on supplemental oxygen]45-58-4562QsvecegRwrcyxjcyma failure; insufficiency; arrest (adult) (3 sources)Acute respiratory failure with hypoxia; Translations: [Acute hypoxemic respiratory failure]Onset: 197000-00-0688HnzmuewfUnykifpyhmn failure; insufficiency; arrest (adult) (1 source)Respiratory failure; insufficiency; arrest (adult)Retinal detachments; defects; vascular occlusion; and retinopathy (8 sources)Epiretinal membrane of left eye; 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, left eye]Onset: 671028-25-3072RbyapinPggj and subcutaneous tissue infections (2 sources)Cellulitis of right fingerEpisodicSpondylosis; intervertebral disc disorders; other back problems (20 sources)Cervical spondylosis without myelopathy; Translations: [Other spondylosis with radiculopathy, cervical region]Onset: ChronicSprains and strains (20 sources)Neck sprain; Translations: [Strain of muscle, fascia and tendon at neck level, initial encounter]Onset: 04-05-2016 Resolved: 72-42-9521YgtpgfvpEcdekazgr-related disorders (20 sources)Tobacco user; Translations: [Nicotine dependence, cigarettes, in remission]ChronicThyroid disorders (20 sources)Goiter; Translations: [Iodine-deficiency related diffuse (endemic) goiter]74-38-8451MvialkhVooqcev on above:US: right 16mm TR4, left 5-7mm TR - 08/2024US: right 16mm TR4, left 5-7mm TR4 - 08/2024FNA: right nodule 11/17/24US: right 16mm TR4, left 5-7mm TR4 - 08/2024,FNA: right nodule - 11/17/24,US: no change - 01/2025Unclassified (3 sources)CONTACT W/AND (SUSP) EXPOS COVID-19; Translations: [CONTACT W/AND (SUSP) EXPOS COVID-19]Onset: 28-73-7004Jtnmddad veins of lower extremity (5 sources)Varicose veins of lower extremity; Translations: [Varicose veins of bilateral lower extremities with other complications]Onset: 670160-20-3482 EpisodicViral infection (20 sources)COVID-19; Translations: [Disease caused by 2019-nCoV]Onset: 05-08-2022 Past or Other Problems Problem ClassificationProblemDateDocumented DateEpisodic/ChronicCoronary atherosclerosis and other heart disease (4 sources)Patient post percutaneous transluminal coronary angioplasty; Translations: [Percutaneous transluminal coronary angioplasty status]Onset: 214580-89-8896AlgodelhAyewlbzpuz disorders (20 sources)Esophageal disorders; Translations: [Gastroesophageal reflux disease with esophagitis without hemorrhage]Headache; including migraine (20 sources)Headache; Translations: [Headache, unspecified]Onset: 10-19-2015 EpisodicInflammation; infection of eye (except that caused by tuberculosis or sexually transmitteddisease) (8 sources)Blepharitis of upper and lower eyelids of bilateral eyes; Translations: [Unspecified blepharitis right eye, upper and lower eyelids]Onset: 960200-62-7854WstyqtuoOwtgbib (20 sources)Candidiasis of mouth; Translations: [Candidal stomatitis]Onset: 51-77-5687RtshmwkyNfmuyqeqcejj breast conditions (20 sources)Pain of breast; Translations: [Mastodynia] Resolved: 84-72-3085LsakqdzfHgzeonmqlll chest pain (20 sources)Precordial pain; Translations: [Chest pain]Onset: 63-56-8773Gdujiuvp Other connective tissue disease (20 sources)Shoulder lesion, unspecified, left shoulder; Translations: [Shoulder lesion, unspecified, left shoulder]Onset: 49-54-4816QlpxccxxTktte eye disorders (8 sources)Dry eyes; Translations: [Dry eye syndrome of bilateral lacrimal glands]Onset: 518294-00-4915EbczxcikDvebn lower respiratory disease (20 sources)Cough; Translations: [Cough, unspecified]Onset: 59-91-5186Cicyphlf Other lower respiratory disease (10 sources)Dyspnea; Translations: [Shortness of breath]Onset: 10-17-2023 71-18-4577LqlwatnrIfsbr nervous system disorders (19 sources)Tremor; Translations: [Tremor, unspecified]Onset: 20-67-1635Pqsyqyxh Other nervous system disorders (19 sources)Atypical facial pain; Translations: [Atypical facial pain]Onset: 44-42-6084HdxdbbnaYrosp nervous system disorders (1 source)Tremor, unspecified; Translations: [Tremor, unspecified]Onset: 46-81-5456ScfaafzvNdsyg nervous system disorders (1 source)Atypical facial pain; Translations: [Atypical facial pain]Onset: 93-97-8517NusukfrkPxowi non-traumatic joint disorders (19 sources)Shoulder joint pain; Translations: [Pain in left shoulder]Onset: 82-14-5541VvnfgpslFodyh non-traumatic joint disorders (1 source)Pain in left shoulder; Translations: [Pain in left shoulder]Onset: 70-07-8994JitjcufnUckjqocu codes; unclassified (20 sources)Insomnia; Translations: [Insomnia, unspecified]Onset: 06-23-2015 EpisodicScreening and history of mental health and substance abuse codes (20 sources)Ex-smoker; Translations: [Personal history of tobacco use]Onset: 20-90-106162610256-70-6247JzuxrdkgTtmbser on above:1998;Spondylosis; intervertebral disc disorders; other back problems (20 sources)Neck pain; Translations: [Cervicalgia]Onset: 31-56-1420Fizetjcp Superficial injury; contusion (20 sources)Contusion of ankle; Translations: [Contusion of unspecified ankle, initial encounter]Onset: 56-80-0820WjkmefeoNycqmxsqpaoy (3 sources)Patient status finding; Translations: [Patient new to provider] Unclassified (1 source)CONTACT W/AND (SUSP) EXPOS COVID-19; Translations: [CONTACT W/AND (SUSP) EXPOS COVID-19]Onset: 30-76-7192Whihaiwkxqng (20 sources)Acute candidiasis of vulva and vagina; Translations: [Acute candidiasis of vulva and vagina] Resolved: 04-00-2070Ntzcrpojdlvb (1 source)Subacute cough R05.2Unclassified (1 source)Post COVID-19 condition, 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Unclassified (1 source)Chronic cough R05.3Unclassified (10 sources)Onset: 03-05-2024 Resolved: 654416-74-4218Wdcnbqj tract infections (20 sources)Urethral syndrome; 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 [place] [address] Ultrasound Report Signed Patient: Lashaun Joaquin MR#: [id number] [birth year] : 1940 Acct:[id number] Age/Sex: 84 / F ADM Date: 08/19/25 Loc: Room: Type: [facility] Attending Dr: Kaia Krishna FAMILY DENTIST-C Ordering Provider: Kaia Krishna APRN Date of Service: 08/19/25 US/US arterial pvr rest LE: G25.81 - Restless legs syndrome Copies to: Kaia Krishna APRN LOWER EXTREMITY SEGMENTAL ARTERIAL DOPSCAN (PVR) INDICATION: Lower extremity wound PROCEDURE: Right arm blood pressure is 165 , left is 158 . Pressures throughout the right leg are compressible at the low thigh, 170 at the calf, 155 at the ankle using the posterior tibial artery, and 159 at the ankle using the dorsalis pedis artery with ankle- brachial index of 0.94 0.96 . Pressures throughout the left leg are noncompressible at the low thigh, 178 at the calf and 160 at the ankle using the posterior tibial artery, and 171 at the ankle using the dorsalis pedis art denisse with ankle-brachial index of 0.97 1.04 . Wave forms by plethysmography are normal. US/US arterial pvr rest LE IMPRESSION: NO HEMODYNAMICALLY SIGNIFICANT PERIPHERAL VASCULAR OCCLUSIVE DISEASE AT REST IN EITHER LOWER EXTREMITY. Impression dictated by: Juan Jose Menard M.D. 08/19/2025 12:27 PM Dictation Location: [place] [address] Tech: Darcy Kraft Transcribed By: LAURA 08/19/25 1227 Dictated By: Juan Jose Menard MD 08/19/256 Signed By: 08/19/[address] [place] [address] Physician GroupUS venous duplex LE [facility] [id number] venous duplex LE [facility] Main [place] [address] [place] [address] Ultrasound Report Signed Patient: Lashaun Joaquin MR#: [id number] [birth year] : 1940 Acct:[id number] Age/Sex: 84 / F ADM Date: 08/19/25 Loc: Room: Type: [facility] Attending Dr: Kaia Krishna FAMILY DENTIST-C Ordering Provider: Kaia Krishna APRN Date of Service: 08/19/25 US/US venous duplex LE BI: I87.2 - Venous insufficiency (chronic) (peripheral) Copies to: Kaia Krishna APRN BILATERAL LOWER EXTREMITY AND FULL FUNCTIONAL VENOUS [...] cm throughout. There was some varicosities and air grinder sutures also identified which all measure less [...] Menard M.D. 08/19/2025 12:30 PM Dictation Location: [place] [address] Tech: Darcy Kraft Transcribed By: LAURA 08/19/25 1230 Dictated By: Juan Jose Menard MD 08/19/25 1227 Signed By: 08/19/25 1230[facility] Physician GroupGlomerular filtration rate (GFR) estimation in non- AmericanOrdered By: Agueda Fields on 08-16-2025 GFR/1.73 sq M.predicted among non-blacks MDRD (S/P/Bld) [Vol rate/Area]38 mL/min/{1.73_m2}Low>=60 mL/min/1.73m 2FFult[facility] Laboratory - Chemistry and Chemistry - challengeOrdered By: Agueda Fields on 67-07-8930Ngbrdyj [Mass/Vol]8.3 mg/dLLow8.5-10.1FFulton County Health CenterChloride [Moles/Vol]97 mmol/JFfv89-625QpeurqgvrProtestant HospitalCO2 [Moles/Vol]27.1 mmol/L21.0-32.0Pro[facility] HospitalCreatinine [Mass/Vol]1.33 mg/dLHigh0.55-1.02Protestant HospitalGFR/1.73 sq M.predicted MDRD (S/P/Bld) [Vol rate/Area]46 mL/min/{1.73_m2}Low>=60 mL/min/1.73m 2FFulton County Health CenterGlucose [Mass/Vol]93 mg/mF11-325 [facility] HospitalPotassium [Moles/Vol]4.2 mmol/L3.5-5.1FFirelands Regional Medical Centerodium [Moles/Vol]134 mmol/JHnm402-273RghlugtmuProtestant HospitalUrea nitrogen [Mass/Vol]30.0 mg/dLHigh7.0-18.0Protestant HospitalUrea nitrogen/Creatinine [Mass ratio]22.6 mg/mgCommunity Regional Medical Centererum or plasma anion gap determinationOrdered By: Agueda Fields on 79-74-5628Jdbla gap [Moles/Vol]14.1 mmol/LFFulton County Health Center Erythrocyte distribution width Auto (RBC) [Ratio]Ordered By: Agueda Azarr on 22-54-5204Donlbzqcsei distribution width (RBC) [Ratio]13.6 %11.0-15.0Protestant HospitalGlomerular filtration rate (GFR) estimation in non- AmericanOrdered By: Agueda Azarr on 98-46-2544HEK/1.73 sq M.predicted among non-blacks MDRD (S/P/Bld) [Vol rate/Area]35 mL/min/{1.73_m2}Low>=60 mL/min/1.73m [address] [place], [place] [address]Hematocrit Auto (Bld) [Volume fraction]Ordered By: Agueda Fields on 23-01-5247Vjhofberpm (Bld) [Volume fraction]22.7 %Critically low36.0-48.0Protestant HospitalComment on above:RESULTS CALLED TO MAI OTERO RNHemoglobin [Mass/volume] in Blood Ordered By: Agueda Fields on 22-50-2130Lwbmuaedlr (Bld) [Mass/Vol]7.6 g/dLLow 12.0-16.0Pro[facility] HospitalLaboratory - Chemistry and Chemistry - challengeOrdered By: Agueda Fields on 60-86-9813Fqjyjkt [Mass/Vol]8.4 mg/dL Low8.5-10.1FFulton County Health CenterChloride [Moles/Vol]99 mmol/L98-107 [facility] HospitalCO2 [Moles/Vol]25.5 mmol/L21.0-32.0Pro[facility] HospitalCreatinine [Mass/Vol]1.42 mg/dLHigh0.55-1.02Protestant HospitalGFR/1.73 sq M.predicted MDRD (S/P/Bld) [Vol rate/Area]43 mL/min/{1.73_m2}Low>=60 mL/min/1.73m 2FFulton County Health CenterGlucose [Mass/Vol]97 mg/aC24-720RxxagjcxdProtestant HospitalPotassium [Moles/Vol] 4.1 mmol/L3.5-5.1FFirelands Regional Medical Centerodium [Moles/Vol]136 mmol/L 136-145Protestant HospitalUrea nitrogen [Mass/Vol]30.0 mg/dLHigh 7.0-18.0Pro[facility]ant HospitalUrea nitrogen/Creatinine [Mass ratio] 21.1 mg/mgProtestant HospitalLeukocytes [#/volume] corrected for nucleated erythrocytes in Blood by Automated counOrdered By: Agueda Fields on 27-07-8760XVQ corrected for nucl RBC Auto (Bld) [#/Vol]4.8 10 3/uL4.0-11.0 [facility] Auto (RBC) [Entitic mass]Ordered By: Agueda Fields on 09-18-8473ISI (RBC) [Entitic mass]29.2 pg26.7-34.0Protestant HospitalMCHC Auto (RBC) [Mass/Vol]Ordered By: Agueda Fields on 74-82-0409AZZD (RBC) [Mass/Vol]33.5 g/dL29.9-35.2FFulton County Health CenterMCV Auto (RBC) [Entitic vol]Ordered By: Oblubadah Daromar on 96-74-3591PFU (RBC) [Entitic vol]87.3 fL81.0-99.0Protestant HospitalPlatelet mean volume Auto (Bld) [Entitic vol]Ordered By: Oblubadah Daromar on 08-15-2025 Platelet mean volume (Bld) [Entitic vol]10.1 fL9.5-13.5FFulton County Health CenterPlatelets Auto (Bld) [#/Vol]Ordered By: Oblubadah Daromar on 32-66-5280Ubfitqgol (Bld) [#/Vol]256 10 3/cH818-030EirkpbhsyProtestant HospitalRBC Auto (Bld) [#/Vol]Ordered By: Obaydah Daromar on 73-81-6269HRJ (Bld) [#/Vol]2.60 10 6/uLLow4.20-5.40Community Regional Medical Centererum or plasma anion gap determinationOrdered By: Oblubadah Daromar on 65-55-3603Mlqxq gap [Moles/Vol]15.6 mmol/LFFulton County Health CenterBasophils Auto (Bld) [#/Vol]Ordered By: Seth Dupree on 63-80-6000Rbslxpvsw (Bld) [#/Vol]0.0 10 3/uL 0.0-0.1FFulton County Health CenterBasophils/100 WBC Auto (Bld)Ordered By: Seth Dupree on 46-55-8030Pknckfzds/100 WBC (Bld)0.4 %0.2-2.0Pro[facility]ant HospitalEosinophils/100 WBC Auto (Bld)Ordered By: Seth Dupree on 88-80-7670Zdmtqnkdgtn/100 WBC (Bld)2.5 %0.9-7.0[facility] Erythrocyte distribution width Auto (RBC) [Ratio]Ordered By: Seth Dupree on 66-68-2784Nwnqreoukbv distribution width (RBC) [Ratio]13.5 %11.0-15.0Pro[facility] HospitalGlomerular filtration rate (GFR) estimation in non- AmericanOrdered By: Seth Dupree on 91-63-7932JWA/1.73 sq M.predicted among non-blacks MDRD (S/P/Bld) [Vol rate/Area]33 mL/min/{1.73_m2}Low>=60 mL/min/1.73m 2FFulton County Health CenterHematocrit Auto (Bld) [Volume fraction]Ordered By: Seth Dupree on 94-19-5213Ifowindqja (Bld) [Volume fraction]24.9 %Low36.0-48.0Pro[facility]ant HospitalHemoglobin [Mass/volume] in BloodOrdered By: Seth Dupree on 94-22-4155Uvcqlcrtlj (Bld) [Mass/Vol]8.2 g/dLLow12.0-16.0Pro[facility] HospitalLaboratory - Chemistry and Chemistry - challengeOrdered By: Seth Dupree on 08-14-2025 Calcium [Mass/Vol]8.4 mg/dLLow8.5-10.1FFulton County Health CenterChloride [Moles/Vol]101 mmol/B83-441KxeqxxoelProtestant HospitalCO2 [Moles/Vol]23.9 mmol/L21.0-32.0Pro[facility] HospitalCreatinine [Mass/Vol]1.51 mg/dL High0.55-1.02Protestant HospitalGFR/1.73 sq M.predicted MDRD (S/P/Bld) [Vol rate/Area]40 mL/min/{1.73_m2}Low>=60 mL/min/1.73m [address] [place], [place] [address]Glucose [Mass/Vol]108 mg/fNKosv95-740UiqlyvuiuProtestant HospitalNatriuretic peptide B (Bld) [Mass/Vol]1330.0 pg/mL<=1800.0 [facility] HospitalPotassium [Moles/Vol]4.2 mmol/L3.5-5.1FFirelands Regional Medical Centerodium [Moles/Vol]134 mmol/MCye897-664RqvuikolzProtestant HospitalUrea nitrogen [Mass/Vol]32.0 mg/dLHigh7.0-18.0Fire[facility] Regional Medical CenterUrea nitrogen/Creatinine [Mass ratio]21.2 mg/mgProtestant HospitalLaboratory - Hematology and Cell countsOrdered By: Seth Dupree on 61-18-8916Kewsclqq granulocytes/100 WBC (Bld)0.4 %0.0-0.5FFulton County Health CenterLeukocytes [#/volume] corrected for nucleated erythrocytes in Blood by Automated counOrdered By: Seth Dupree on 51-32-6850LLX corrected for nucl RBC Auto (Bld) [#/Vol]6.9 10 3/uL4.0-11.0[facility] Lymphocytes Auto (Bld) [#/Vol]Ordered By: Seth Dupree on 80-15-6718Zwsmkonkqgg (Bld) [#/Vol]0.7 10 3/uLLow1.2-3.8[facility] Lymphocytes/100 WBC Auto (Bld)Ordered By: Seth Dupree on 08-14-2025 Lymphocytes/100 WBC (Bld)9.4 %Low20.5-60.0[facility] HospitalH Auto (RBC) [Entitic mass]Ordered By: Seth Dupree on 14-29-2556QUV (RBC) [Entitic mass]28.3 pg26.7-34.0Pro[facility] HospitalMCHC Auto (RBC) [Mass/Vol]Ordered By: Seth Dupree on 09-39-7402CISE (RBC) [Mass/Vol]32.9 g/dL 29.9-35.2FFulton County Health CenterMCV Auto (RBC) [Entitic vol]Ordered By: Seth Dupree on 99-28-1646EIB (RBC) [Entitic vol]85.9 fL81.0-99.0Pro[facility] HospitalMonocytes Auto (Bld) [#/Vol]Ordered By: Seth Dupree on 99-26-0488Brhhdeoam (Bld) [#/Vol]0.5 10 3/uL0.3-0.8Pro[facility] HospitalMonocytes/100 WBC Auto (Bld)Ordered By: Seth Dupree on 08-14-2025 Monocytes/100 WBC (Bld)6.7 %1.7-12.0Pro[facility] HospitalNeutrophils Auto (Bld) [#/Vol]Ordered By: Seth Dupree on 47-21-3211Xexaoohdkeh (Bld) [#/Vol]5.6 10 3/uL1.4-6.5FFulton County Health CenterNeutrophils/100 WBC Auto (Bld)Ordered By: Seth Dupree on 76-04-8415Gngoklwhhml/100 WBC (Bld)80.6 % High43.0-75.0Pro[facility] HospitalNo Panel InformationOrdered By: Seth Dupree on 51-51-0216Sbbsyycwmbj # (Auto)0.2 10 3/uL0.0-0.7FFulton County Health CenterImmature Granulocyte # (Auto)0.03 10 3/uL0.00-0.03 [facility] HospitalTroponin I High Eekbkvrvndj12.5 pg/mL4.0-51.3 Protestant HospitalComment on above:CUT-OFF POINTS HAVE BEEN ESTABLISHED BASED ON THE FOURTHUNIVERSAL DEFINITION OF MYOCARDIAL INFARCTION. THE UPPERREFERENCE LIMIT (URL) OF TROPONIN, DEFINED THE 99THPERCENTILE OF cTnI DISTRIBUTION IN A REFERENCE POPULATION,HAS BEEN CONFIRMED THE DECISION THRESHOLD FOR MIDIAGNOSIS.99TH PERCENTILE = 51.4 PG/MLNOTE: HIGH-SENSITIVITY TROPONIN ASSAY IS NOT INTENDED TO BEUSED IN ISOLATION BUT SHOULD BE INTERPRETED IN CONJUNCTIONWITH OTHER DIAGNOSTIC AND CLINICAL INFORMATION.Platelet mean volume Auto (Bld) [Entitic vol]Ordered By: Seth Dupree on 82-27-3679Xpzemxga mean volume (Bld) [Entitic vol]10.0 fL9.5-13.5FFulton County Health Center Platelets Auto (Bld) [#/Vol]Ordered By: Seth Dupree on 49-44-5727Mujzyvhzd (Bld) [#/Vol]276 10 3/cA284-591CkghfnvdgProtestant HospitalRBC Auto (Bld) [#/Vol]Ordered By: Seth Dupree on 01-16-3314PUY (Bld) [#/Vol]2.90 10 6/uLLow 4.20-5.40Community Regional Medical Centererum or plasma anion gap determinationOrdered By: Seth Dupree on 68-21-7716Gcsbs gap [Moles/Vol]13.3 mmol/LFFulton County Health CenterBasophils Auto (Bld) [#/Vol]Ordered By: Obiggy Robleroomar on 25-57-6777Uoqktjlaa (Bld) [#/Vol]0.0 10 3/uL0.0-0.1FFulton County Health CenterBasophils/100 WBC Auto (Bld)Ordered By: Oblubadapito Robleroomar on 93-16-3237Oqclsycbs/100 WBC (Bld)0.8 %0.2-2.0Pro[facility] HospitalEosinophils/100 WBC Auto (Bld)Ordered By: Obiggy Robleroomar on 08-11-2025 Eosinophils/100 WBC (Bld)4.4 %0.9-7.0[facility] Erythrocyte distribution width Auto (RBC) [Ratio]Ordered By: Agueda Roblreoomar on 49-57-3943Mcdwylyuime distribution width (RBC) [Ratio]13.4 %11.0-15.0[facility] HospitalGlomerular filtration rate (GFR) estimation in non- AmericanOrdered By: Agueda Azarr on 05-89-2324VQK/1.73 sq M.predicted among non-blacks MDRD (S/P/Bld) [Vol rate/Area]37 mL/min/{1.73_m2}Low>=60 mL/min/1.73m 2FFulton County Health CenterHematocrit Auto (Bld) [Volume fraction]Ordered By: Agueda Azarr on 28-84-8399Bxcjzttijv (Bld) [Volume fraction]23.7 %Critically low36.0-48.0Pro[facility] HospitalComment on above:RESULTS CALLED TO ETHAN ZULETA RNHemoglobin [Mass/volume] in BloodOrdered By: Agueda Fields on 59-14-7627Obzvbzafin (Bld) [Mass/Vol]8.0 g/dLLow 12.0-16.0[facility] HospitalLaboratory - Chemistry and Chemistry - challengeOrdered By: Agueda Fields on 99-57-2707Lbhpluu [Mass/Vol]8.5 mg/dL 8.5-10.1FFulton County Health CenterChloride [Moles/Vol]107 mmol/L98-107 [facility] HospitalCO2 [Moles/Vol]26.9 mmol/L21.0-32.0[facility] HospitalCreatinine [Mass/Vol]1.36 mg/dLHigh0.55-1.02Pro[facility] HospitalGFR/1.73 sq M.predicted MDRD (S/P/Bld) [Vol rate/Area]45 mL/min/{1.73_m2}Low>=60 mL/min/1.73m 2FFulton County Health CenterGlucose [Mass/Vol]91 mg/cC28-148RpyyxiywnProtestant HospitalPotassium [Moles/Vol] 3.9 mmol/L3.5-5.1FFirelands Regional Medical Centerodium [Moles/Vol]143 mmol/L 136-145Protestant HospitalUrea nitrogen [Mass/Vol]31.0 mg/dLHigh 7.0-18.0[facility] HospitalUrea nitrogen/Creatinine [Mass ratio] 22.8 mg/mgProtestant HospitalLaboratory - Hematology and Cell countsOrdered By: Agueda Fields on 39-27-6696Pcipkvri granulocytes/100 WBC (Bld)0.4 %0.0-0.5FFulton County Health CenterLeukocytes [#/volume] corrected for nucleated erythrocytes in Blood by Automated counOrdered By: Agueda Fields on 31-01-9008DFP corrected for nucl RBC Auto (Bld) [#/Vol]5.0 10 3/uL4.0-11.0Pro[facility] HospitalLymphocytes Auto (Bld) [#/Vol] Ordered By: Agueda Fields on 98-71-8513Xkzmwsiklox (Bld) [#/Vol]0.8 10 3/uLLow 1.2-3.8Pro[facility] HospitalLymphocytes/100 WBC Auto (Bld)Ordered By: Agueda Fields on 75-31-7796Pjnvfefjkil/100 WBC (Bld)15.6 %Low20.5-60.0 [facility] HospitalMCH Auto (RBC) [Entitic mass]Ordered By: Oblubadapito Daromar on 63-07-9759YHW (RBC) [Entitic mass]29.0 pg26.7-34.0Pro[facility] HospitalMCHC Auto (RBC) [Mass/Vol]Ordered By: Oblubadah Daromar on 44-08-7376ODPA (RBC) [Mass/Vol]33.8 g/dL29.9-35.2FFulton County Health CenterMCV Auto (RBC) [Entitic vol]Ordered By: Oblubadapito Daromar on 84-53-0105ZHV (RBC) [Entitic vol]85.7 fL81.0-99.0Pro[facility] HospitalMonocytes Auto (Bld) [#/Vol]Ordered By: Oblubadah Daromar on 47-27-9887Jarjvosrc (Bld) [#/Vol]0.6 10 3/uL0.3-0.8Pro[facility] HospitalMonocytes/100 WBC Auto (Bld)Ordered By: Oblubadah Daromar on 81-23-6869Acfgfibch/100 WBC (Bld)11.4 % 1.7-12.0Pro[facility] HospitalNeutrophils Auto (Bld) [#/Vol]Ordered By: Obaydah Daromar on 91-80-7083Wiywcayvmfv (Bld) [#/Vol]3.4 10 3/uL1.4-6.5 [facility] HospitalNeutrophils/100 WBC Auto (Bld)Ordered By: Oblubadah Daromar on 24-86-2015Llkreqoscli/100 WBC (Bld)67.4 %43.0-75.0[facility] HospitalNo Panel InformationOrdered By: Oblubadah Daromar on 17-13-2477Gcoybcmgzlb # (Auto)0.2 10 3/uL0.0-0.7FFulton County Health CenterImmature Granulocyte # (Auto)0.02 10 3/uL0.00-0.03Pro[facility] HospitalPlatelet mean volume Auto (Bld) [Entitic vol]Ordered By: Obaydah Daromar on 40-77-2630Fmclbtgo mean volume (Bld) [Entitic vol]9.8 fL9.5-13.5 [facility] HospitalPlatelets Auto (Bld) [#/Vol]Ordered By: Obaydah Daromar on 41-37-6078Dkzsypxww (Bld) [#/Vol]236 10 3/lC239-557KibxveecpProtestant HospitalRBC Auto (Bld) [#/Vol]Ordered By: Obaydah Daromar on 86-66-8634DWG (Bld) [#/Vol]2.59 10 6/uLLow4.20-5.40[facility] Centererum or plasma anion gap determinationOrdered By: Obaydah Daromar on 80-27-1909Hgovn gap [Moles/Vol]13.0 mmol/LFFulton County Health Center Basophils Auto (Bld) [#/Vol]Ordered By: Cher Marker on 53-45-7594Hvcwsqomv (Bld) [#/Vol]0.0 10 3/uL0.0-0.1FFulton County Health CenterBasophils/100 WBC Auto (Bld)Ordered By: Cher Marker on 85-33-3384Rwrudzsmm/100 WBC (Bld)0.5 %0.2-2.0[facility] HospitalEosinophils/100 WBC Auto (Bld)Ordered By: Cher Marker on 27-54-0460Hsqfrxuqiiu/100 WBC (Bld)2.1 %0.9-7.0[facility] HospitalErythrocyte distribution width Auto (RBC) [Ratio]Ordered By: Cher Marker on 01-05-5402Qldyfklrscp distribution width (RBC) [Ratio]13.2 %11.0-15.0[facility] HospitalGlobulin Calc (S) [Mass/Vol]Ordered By: Cher Marker on 85-14-9719Iogsxtih (S) [Mass/Vol]3.2 g/dLProtestant HospitalGlomerular filtration rate (GFR) estimation in non- AmericanOrdered By: Cher Marker on 37-82-2809TBT/1.73 sq M.predicted among non-blacks MDRD (S/P/Bld) [Vol rate/Area]37 mL/min/{1.73_m2}Low>=60 mL/min/1.73m 2FFulton County Health CenterHematocrit Auto (Bld) [Volume fraction]Ordered By: Cher Marker on 08-91-5939Iixcdiamuq (Bld) [Volume fraction]25.9 %Low36.0-48.0[facility] HospitalHemoglobin [Mass/volume] in BloodOrdered By: Cher Marker on 17-91-1152Waicgpihvo (Bld) [Mass/Vol]8.7 g/dLLow12.0-16.0[facility] HospitalLaboratory - Chemistry and Chemistry - challengeOrdered By: Agueda Fields on 08-10-2025 Bilirubin Ql (U)NegativeNEGATIVEProtestant HospitalGlucose (U) [Mass/Vol]NegativeNEGATIVEProtestant HospitalKetones Ql (U) NegativeNEGATIVEProtestant HospitalpH (U)6.0 [pH]5.0-9.0[facility] Centerpecific gravity (U) [Rel density]1.0101.005-1.025 [facility] HospitalUrobilinogen Qn (U)0.2 {Rossy'U}/dL0.2-1.0 [facility] HospitalLaboratory - Chemistry and Chemistry - challengeOrdered By: Cher Marker on 94-34-4596Tbnuzsx [Mass/Vol]3.1 g/dLLow 3.4-5.0Pro[facility] HospitalALP [Catalytic activity/Vol]46 U/L46-116 [facility] HospitalALT [Catalytic activity/Vol]19 U/L14-59 [facility] HospitalAST [Catalytic activity/Vol]20 U/L15-37 [facility] HospitalBilirubin [Mass/Vol]0.4 mg/dL0.2-1.0[facility] HospitalCalcium [Mass/Vol]8.6 mg/dL8.5-10.1FFulton County Health CenterChloride [Moles/Vol]102 mmol/R16-677GvcugsfxfProtestant HospitalCO2 [Moles/Vol]26.6 mmol/L21.0-32.0[facility] Creatinine [Mass/Vol]1.36 mg/dLHigh0.55-1.02[facility] GFR/1.73 sq M.predicted MDRD (S/P/Bld) [Vol rate/Area]45 mL/min/{1.73_m2}Low>=60 mL/min/1.73m 2FFulton County Health CenterGlucose [Mass/Vol]116 mg/dLHigh 74-106Protestant HospitalLactate [Moles/Vol]0.8 mmol/L0.4-2.0 [facility] HospitalNatriuretic peptide B (Bld) [Mass/Vol]1378.0 pg/mL<=1800.0[facility] HospitalPotassium [Moles/Vol]3.8 mmol/L 3.5-5.1FFulton County Health CenterProtein [Mass/Vol]6.3 g/dLLow6.4-8.2 [facility] Centerodium [Moles/Vol]141 mmol/V959-174EsscnmyqcProtestant HospitalUrea nitrogen [Mass/Vol]34.0 mg/dLHigh7.0-18.0[facility] HospitalUrea nitrogen/Creatinine [Mass ratio]25.0 mg/mgProtestant HospitalLaboratory - Hematology and Cell countsOrdered By: Cher Marker on 00-27-3921Rejjmven granulocytes/100 WBC (Bld)0.5 %0.0-0.5 [facility] HospitalLaboratory - Specimen informationOrdered By: Agueda Fields on 14-15-1251Kqwgxcofcv (U)CLEARCLEARFFulton County Health CenterColor (U)LT. YELLOWYELLOWProtestant HospitalLaboratory - UrinalysisOrdered By: Agueda Fields on 93-11-6584Rcyaybyqa esterase Test strip Ql (U)TRACEAbnormalNEGATIVEProtestant HospitalMucus Ql (Urine sed) NONE SEENNONE SEENProtestant HospitalNitrite Ql (U)Negative NEGATIVEProtestant HospitalProtein Ql (U)100 mg/dLAbnormal NEG/TRACEProtestant HospitalLeukocytes [#/volume] corrected for nucleated erythrocytes in Blood by Automated counOrdered By: Cher Marker on 34-60-2677LIS corrected for nucl RBC Auto (Bld) [#/Vol]6.2 10 3/uL4.0-11.0 [facility] HospitalLymphocytes Auto (Bld) [#/Vol]Ordered By: Cher Marker on 87-44-0767Iqwkjnbmkke (Bld) [#/Vol]0.9 10 3/uLLow1.2-3.8 [facility] HospitalLymphocytes/100 WBC Auto (Bld)Ordered By: Cher Marker on 78-44-4215Sogixmykqfs/100 WBC (Bld)14.4 %Low20.5-60.0[facility] HospitalH Auto (RBC) [Entitic mass]Ordered By: Cher Marker on 07-57-3183MUN (RBC) [Entitic mass]29.0 pg26.7-34.0Pro[facility] HospitalMCHC Auto (RBC) [Mass/Vol]Ordered By: Cher Marker on 88-48-9998HXBX (RBC) [Mass/Vol]33.6 g/dL29.9-35.2FFulton County Health CenterMCV Auto (RBC) [Entitic vol]Ordered By: Cher Marker on 90-24-6172BGV (RBC) [Entitic vol]86.3 fL81.0-99.0[facility] HospitalMonocytes Auto (Bld) [#/Vol]Ordered By: Cher Marker on 70-98-4432Moxiukmeh (Bld) [#/Vol]0.5 10 3/uL0.3-0.8Pro[facility]ant HospitalMonocytes/100 WBC Auto (Bld)Ordered By: Cher Marker on 60-72-6039Griwkpdau/100 WBC (Bld)8.1 %1.7-12.0Pro[facility] HospitalNeutrophils Auto (Bld) [#/Vol]Ordered By: Cher Marker on 91-46-3588Ztbaovrxkom (Bld) [#/Vol]4.6 10 3/uL1.4-6.5FFulton County Health CenterNeutrophils/100 WBC Auto (Bld)Ordered By: Cher Marker on 36-85-7921Rexuykfnkjl/100 WBC (Bld)74.4 %43.0-75.0[facility] HospitalNo Panel InformationOrdered By: Agueda Fields on 87-91-3196Gplfc BacteriaTRACE #/HPFAbnormalNONE SEENProtestant HospitalUrine Culture ReflexedNOProtestant HospitalUrine Occult BloodLARGE AbnormalNEGATIVEProtestant HospitalUrine Other CastsNONE SEEN #/LPFNONE [facility] CenterUrine Other CrystalsNone Seen #/HPFNone [facility] HospitalUrine HCQ27-36 #/HPFAbnormal0-2 Protestant HospitalUrine Squamous Epithelial CellsFEW #/LPF AbnormalNONE/RAREProtestant HospitalUrine WBC0-2 #/HPFAbnormalNONE [facility] CenterNo Panel InformationOrdered By: Cher Marker on 60-47-3021Jyvzminrevx # (Auto)0.1 10 3/uL0.0-0.7FFulton County Health CenterImmature Granulocyte # (Auto)0.03 10 3/uL0.00-0.03Pro[facility] HospitalTroponin I High Fvuajybkigk67.5 pg/mL4.0-51.3FFulton County Health CenterComment on above:CUT-OFF POINTS HAVE BEEN ESTABLISHED BASED ON THE FOURTHUNIVERSAL DEFINITION OF MYOCARDIAL INFARCTION. THE UPPERREFERENCE LIMIT (URL) OF TROPONIN, DEFINED THE 99THPERCENTILE OF cTnI DISTRIBUTION IN A REFERENCE POPULATION,HAS BEEN CONFIRMED THE DECISION THRESHOLD FOR MIDIAGNOSIS.99TH PERCENTILE = 51.4 PG/MLNOTE: HIGH-SENSITIVITY TROPONIN ASSAY IS NOT INTENDED TO BEUSED IN ISOLATION BUT SHOULD BE INTERPRETED IN CONJUNCTIONWITH OTHER DIAGNOSTIC AND CLINICAL INFORMATION.Platelet mean volume Auto (Bld) [Entitic vol]Ordered By: Cher Marker on 80-10-5805Ojlzpzwb mean volume (Bld) [Entitic vol]9.9 fL9.5-13.5FFulton County Health Center Platelets Auto (Bld) [#/Vol]Ordered By: Cher Marker on 38-95-8811Gcrqjknmk (Bld) [#/Vol]274 10 3/aH313-314TrpezdymdProtestant HospitalRBC Auto (Bld) [#/Vol]Ordered By: Cher Marker on 57-35-6488URV (Bld) [#/Vol]3.00 10 6/uLLow 4.20-5.40[facility] Medical Centererum or plasma albumin/globulin mass ratioOrdered By: Cher Marker on 98-21-8889Ylgwyho/Globulin [Mass ratio]1.0 {ratio}[facility] Medical Centererum or plasma anion gap determination Ordered By: Cher Marker on 03-56-7164Aurmn gap [Moles/Vol]16.2 mmol/L Protestant HospitalBasophils Auto (Bld) [#/Vol]Ordered By: Valentin Leonard on 76-44-5239Gxmdosnyr (Bld) [#/Vol]0.05 10*3/uL<0.11Protestant HospitalBasophils/100 WBC Auto (Bld)Ordered By: Valentin Leonard on 85-59-3941Aqieafbkt/100 WBC (Bld)0.8 %Protest[facility] HospitalBlood manual differential comment interpretation narrativeOrdered By: Valentin Leonard on 53-68-9593Ervqhu differential comment Arturo (Bld) [Interp]AutoProtestant HospitalCB W Auto Differential panel (Bld)on 41-76-8684Knsvcptam (Bld) [#/Vol]0.05 10*3/uLNormal<0.11COhioHealth Van Wert Hospital on above: Order Comment: Specimen Type: BLOOD SPECIMEN Ordering Facility: [facility] Address: [address] [place], [place] [address]Performed By: #### 53860-3 #### [facility] CLIA [id number] [address] [place] [address] [place] [address] [place] OF AMERICABasophils/100 WBC (Bld)0.8 % NormalKnox Community Hospital on above:Order Comment: Specimen Type: BLOOD SPECIMEN Ordering Facility: [facility] Address: [address] [place], [place] [address]Performed By: #### 01540-7 #### [facility] CLIA [id number] [address] [place] [address] [place] OF AMERICADifferential cell count method Nom (Bld)AutoNormalCOhioHealth Van Wert Hospital on above:Order Comment: Specimen Type: BLOOD SPECIMEN Ordering Facility: [facility] Address: [address] [place], [place] [address]Performed By: #### 08848-4 #### [facility] [place] [id number] [address] [place] [address] [place] AMERICAEosinophils (Bld) [#/Vol] 0.16 10*3/uLNormal<0.46[facility] on above:Order Comment: Specimen Type: BLOOD SPECIMEN Ordering Facility: [facility] Address: [address] [place], [place] [address]Performed By: #### 57265-2 #### [facility] [place] [id number] [address] [place] [address] [place] AMERICAEosinophils/100 WBC (Bld)2.5 %NormalKnox Community Hospital on above:Order Comment: Specimen Type: BLOOD SPECIMEN Ordering Facility: [facility] Address: [address] [place], [place] [address]Performed By: #### 23717-8 #### [facility] CLIA [id number] [address] [place] [address] [place] AMERICAErythrocyte distribution width (RBC) [Ratio]13.5 %Xbwcra14.5-15.0[facility] on above:Order Comment: Specimen Type: BLOOD SPECIMEN Ordering Facility: [facility] Address: [address] [place], [place] [address]Performed By: #### 66632-6 #### [facility] CLIA [id number] [address] [place] [address] [place] OF AMERICAHematocrit (Bld) [Volume fraction]27.6 %Low36.0-46.0[facility] on above:Order Comment: Specimen Type: BLOOD SPECIMEN Ordering Facility: [facility] Address: [address] [place], [place] [address]Performed By: #### 99106-9 #### [facility] CLIA [id number] [address] [place] [address] [place] AMERICAHemoglobin (Bld) [Mass/Vol] 8.9 g/dLLow11.5-15.5COhioHealth Van Wert Hospital on above:Order Comment: Specimen Type: BLOOD SPECIMEN Ordering Facility: [facility] Address: [address] [place], [place] [address]Performed By: #### 63344-6 #### [facility] CLIA [id number] [address] [place] [address] [place] OF AMERICAImmature granulocytes (Bld) [#/Vol]0.03 10*3/uLNormal<0.10[facility] on above:Order Comment: Specimen Type: BLOOD SPECIMEN Ordering Facility: [facility] Address: [address] [place], [place] [address]Performed By: #### 05659-1 #### [facility] CLIA [id number] [address] [place] [address] [place] AMERICAImmature granulocytes/100 WBC (Bld)0.5 %NormalKnox Community Hospital on above:Order Comment: Specimen Type: BLOOD SPECIMEN Ordering Facility: [facility] Address: [address] [place], [place] [address]Performed By: #### 31818-0 #### [facility] CLIA [id number] [address] [place] [address] [place] OF AMERICALymphocytes (Bld) [#/Vol] 0.77 10*3/uLLow1.00-4.00[facility] on above:Order Comment: Specimen Type: BLOOD SPECIMEN Ordering Facility: [facility] Address: [address] [place], [place] [address]Performed By: #### 25136-9 #### [facility] CLIA [id number] [address] [place] [address] [place] [facility] MEDICAL CENTERLymphocytes/100 WBC (Bld) 12.3 %NormalKnox Community Hospital on above:Order Comment: Specimen Type: BLOOD SPECIMEN Ordering Facility: [facility] Address: [address] [place], [place] [address]Performed By: #### 60557-6 #### [facility] CLIA [id number] [address] [place] [address] (RBC) [Entitic mass]28.8 ngQrnrea99.0-34.0[facility] on above:Order Comment: Specimen Type: BLOOD SPECIMEN Ordering Facility: [facility] Address: [address] [place], [place] [address]Performed By: #### 08818-2 #### [facility] CLIA [id number] [address] [place] [address] (RBC) [Mass/Vol]32.2 g/sJGmghip95.5-36.0[facility] on above:Order Comment: Specimen Type: BLOOD SPECIMEN Ordering Facility: [facility] Address: [address] [place], [place] [address]Performed By: #### 78532-4 #### [facility] CLIA [id number] [address] [place] [address] (RBC) [Entitic vol]89.3 vIIaavbh65.0-100.0[facility] on above:Order Comment: Specimen Type: BLOOD SPECIMEN Ordering Facility: [facility] Address: [address] [place], [place] [address]Performed By: #### 77729-3 #### [facility] CLIA [id number] [address] [place] [address] [place] AMERICAMonocytes (Bld) [#/Vol]0.65 10*3/uLNormal<0.87[facility] on above:Order Comment: Specimen Type: BLOOD SPECIMEN Ordering Facility: [facility] Address: [address] [place], [place] [address]Performed By: #### 49811-2 #### [facility] CLIA [id number] [address] [place] [address] [place] AMERICAMonocytes/100 WBC (Bld)10.4 %NormalKnox Community Hospital on above:Order Comment: Specimen Type: BLOOD SPECIMEN Ordering Facility: [facility] Address: [address] [place], [place] [address]Performed By: #### 53444-4 #### [facility] CLIA [id number] [address] [place] [address] [place] AMERICANeutrophils (Bld) [#/Vol] 4.62 10*3/uLNormal1.45-7.50[facility] on above:Order Comment: Specimen Type: BLOOD SPECIMEN Ordering Facility: [facility] Address: [address] [place], [place] [address]Performed By: #### 60507-0 #### [facility] CLIA [id number] [address] [place] [address] [place] AMERICANeutrophils/100 WBC (Bld) 73.5 %NormalKnox Community Hospital on above:Order Comment: Specimen Type: BLOOD SPECIMEN Ordering Facility: [facility] Address: [address] [place], [place] [address]Performed By: #### 84778-3 #### [facility] CLIA [id number] [address] [place] [address] [place] AMERICANucleated RBC (Bld) [#/Vol] 10*3/uLNormal<0.01[facility] on above:Order Comment: Specimen Type: BLOOD SPECIMEN Ordering Facility: [facility] Address: [address] [place], [place] [address]Performed By: #### 91378-9 #### [facility] CLIA [id number] [address] [place] [address] [place] AMERICANucleated RBC/100 WBC (Bld) [Ratio]0.0 /100 WBCNormalCOhioHealth Van Wert Hospital on above:Order Comment: Specimen Type: BLOOD SPECIMEN Ordering Facility: [facility] Address: [address] [place], [place] [address]Performed By: #### 56167-5 #### [facility] CLIA [id number] [address] [place] [address] [place] AMERICAPlatelet mean volume (Bld) [Entitic vol]9.9 fLNormal9.0-12.7COhioHealth Van Wert Hospital on above: Order Comment: Specimen Type: BLOOD SPECIMEN Ordering Facility: [facility] Address: [address] [place], [place] [address]Performed By: #### 43199-7 #### [facility] CLIA [id number] [address] [place] [address] [place] AMERICAPlatelets (Bld) [#/Vol]295 10*3/hJFqxbrt108-560QbkvfmkfhKnox Community Hospital on above:Order Comment: Specimen Type: BLOOD SPECIMEN Ordering Facility: [facility] Address: [address] [place], [place] [address]Performed By: #### 58037-3 #### [facility] CLIA [id number] [address] [place] [address] [place] AMERICARBC (Bld) [#/Vol]3.09 10*6/uLLow3.90-5.20[facility] on above:Order Comment: Specimen Type: BLOOD SPECIMEN Ordering Facility: [facility] Address: [address] [place], [place] [address]Performed By: #### 31329-5 #### [facility] CLIA [id number] [address] [place] [address] [place] AMERICAWBC (Bld) [#/Vol]6.28 10*3/uLNormal3.70-11.00[facility] on above:Order Comment: Specimen Type: BLOOD SPECIMEN Ordering Facility: [facility] Address: [address] [place], [place] [address]Performed By: #### 59658-5 #### [facility] CLIA [id number] [address] [place], [place] [address]Comprehensive metabolic 2000 panelon 53-81-1115Ubktshy [Mass/Vol]3.7 g/dLLow3.9-4.9COhioHealth Van Wert Hospital on above:Order Comment: Specimen Type: BLOOD SPECIMEN Ordering Facility: [facility] Address: [address] [place], [place] [address]Performed By: #### 16258-5 #### [facility] CLIA [id number] [address] [place] [address]SKC [Catalytic activity/Vol]45 U/YJnipmh68-042FvpgyvssdKnox Community Hospital on above:Order Comment: Specimen Type: BLOOD SPECIMEN Ordering Facility: [facility] Address: [address] [place], [place] [address]Performed By: #### 17016-5 #### [facility] CLIA [id number] [address] [place], [place] [address]GQF [Catalytic activity/Vol]10 U/LNormal7-38[facility] on above:Order Comment: Specimen Type: BLOOD SPECIMEN Ordering Facility: [facility] Address: [address] [place], [place] [address]Performed By: #### 51644-5 #### [facility] CLIA [id number] [address] [place], [place] [address]Gicdv gap [Moles/Vol]10 mmol/LNormal8-15[facility] on above:Order Comment: Specimen Type: BLOOD SPECIMEN Ordering Facility: [facility] Address: [address] [place], [place] [address]Performed By: #### 96444-1 #### [facility] CLIA [id number] [address] [place], [place] [address]ZXR [Catalytic activity/Vol]16 U/DZuqldn78-42EovjbndpcKnox Community Hospital on above:Order Comment: Specimen Type: BLOOD SPECIMEN Ordering Facility: [facility] Address: [address] [place], [place] [address]Performed By: #### 87397-7 #### [facility] CLIA [id number] [address] [place] [address]Nlzvewbcm [Mass/Vol]0.3 mg/dLNormal0.2-1.3COhioHealth Van Wert Hospital on above:Order Comment: Specimen Type: BLOOD SPECIMEN Ordering Facility: [facility] Address: [address] [place], [place] [address]Performed By: #### 12439-9 #### [facility] CLIA [id number] [address] [place] [address]Jvkitdo [Mass/Vol]9.0 mg/dLNormal8.5-10.2COhioHealth Van Wert Hospital on above:Order Comment: Specimen Type: BLOOD SPECIMEN Ordering Facility: [facility] Address: [address] [place], [place] [address]Performed By: #### 82644-8 #### [facility] CLIA [id number] [address] [place] [address]Ickknvxx [Moles/Vol]101 mmol/KZtrfrf92-524QgdivcunyKnox Community Hospital on above:Order Comment: Specimen Type: BLOOD SPECIMEN Ordering Facility: [facility] Address: [address] [place], [place] [address]Performed By: #### 62935-3 #### [facility] CLIA [id number] [address] [place], [place] [address]ML9 [Moles/Vol]28 mmol/PTyipyl96-87KvwsrutrpPromedica Memorial Hospital Comment on above:Order Comment: Specimen Type: BLOOD SPECIMEN Ordering Facility: [facility] Address: [address] [place], [place] [address]Performed By: #### 58260-3 #### [facility] CLIA [id number] [address] [place] [address]Qhxrgbqurf [Mass/Vol]1.64 mg/dLHigh0.58-0.96Promedica Memorial HospitalComment on above:Order Comment: Specimen Type: BLOOD SPECIMEN Ordering Facility: [facility] Address: [address] [place], [place] [address]Performed By: #### 59963-8 #### [facility] CLIA [id number] [address] [place] [address] 39490pBCKpv SerPlBld CKD-EPI 708725 mL/min/1.73m???Low>=60Promedica Memorial HospitalComment on above:Order Comment: Specimen Type: BLOOD SPECIMEN Ordering Facility: [facility] Address: [address] [place], [place] [address]Result Comment: Estimated Glomerular Filtration Rate (eGFR) is [...] not accurately reflect actual GFR.Performed By: #### 18719-0 #### [facility] CLIA [id number] [address] [place] [address]Xcezomu [Mass/Vol]103 mg/aDYcdt37-77NstfvoeatPromedica Memorial Hospital Comment on above:Order Comment: Specimen Type: BLOOD SPECIMEN Ordering Facility: [facility] Address: [address] [place], [place] [address]Result Comment: The [place] [employer] (ADA) [...] [place] [employer]. Diabetes Care. 2016.39(Suppl 1).Performed By: #### 07945-6 #### [facility] CLIA [id number] [address] [place] [address]Eejpyzefj [Moles/Vol]4.7 mmol/LNormal3.7-5.1COhioHealth Van Wert Hospital on above:Order Comment: Specimen Type: BLOOD SPECIMEN Ordering Facility: [facility] Address: [address] [place], [place] [address]Performed By: #### 44046-7 #### [facility] CLIA [id number] [address] [place] [address]Hgilnxy [Mass/Vol]5.9 g/dLLow6.3-8.0[facility] Comment on above:Order Comment: Specimen Type: BLOOD SPECIMEN Ordering Facility: [facility] Address: [address] [place], [place] [address]Performed By: #### 27943-0 #### [facility] CLIA [id number] [address] [place] [address] 456[address]Sdrtbd [Moles/Vol]139 mmol/RUahtet494-685HzmtfgkdlPromedica Memorial HospitalComsinai-gr[facility] on above:Order Comment: Specimen Type: BLOOD SPECIMEN Ordering Facility: [facility] Address: [address] [place], [place] [address]Performed By: #### 04196-8 #### [facility] CLIA [id number] [address] [place] [address]Ghsr nitrogen [Mass/Vol]32 mg/dLHigh7-21[facility] on above:Order Comment: Specimen Type: BLOOD SPECIMEN Ordering Facility: [facility] Address: [address] [place], [place] [address]Performed By: #### 44701-6 #### [facility] CLIA [id number] [address] [place] [address]OSK SerPl-aCncon 22-14-4041Htbcafwxpgwbeo (EPO) Qn26.4 mIU/mL High2.6-18.5COhioHealth Van Wert Hospital on above:Order Comment: Specimen Type: BLOOD SPECIMEN Ordering Facility: [facility] Address: [address] [place], [place] [address]Performed By: #### 39449-2 #### [facility] CLIA [id number] [address] [place] [address] [place] AMERICAEosinophils/100 WBC Auto (Bld)Ordered By: Valentin Leonard on 19-43-7313Kiabnhyvqou/100 WBC (Bld)2.5 % Protestant HospitalErythrocyte distribution width Auto (RBC) [Ratio]Ordered By: Valentin Abhyankar on 75-44-6174Hdhyapwrdcp distribution width (RBC) [Ratio]13.5 %11.5-15.0Protestant HospitalFerritin SerPl-mCnc on 28-65-7563Lytazegx [Mass/Vol]174.0 ng/vQFrhfrp30.7-205.1COhioHealth [facility] on above:Order Comment: Specimen Type: BLOOD SPECIMEN Ordering Facility: [facility] Address: [address] [place], [place] [address]Performed By: #### 45458-3, 2284-8, 2132-9, 2276-4 #### [facility] CLIA [id number] [address] [place] [address] [place] AMERICAFolate SerPl-mCncon 98-55-7206Okrvml [Mass/Vol]17.5 ng/mLNormal>4.7COhioHealth Van Wert Hospital on above:Order Comment: Specimen Type: BLOOD SPECIMEN Ordering Facility: [facility] Address: [address] [place], [place] [address]Performed By: #### 10585-9, 2283-8, 9, 2275-4 #### [facility] CLIA [id number] [address] [place] [address] [place] OF AMERICAGlomerular filtration rate [Volume Rate/Area] in Serum, Plasma or Blood by CreatinineOrdered By: Valentin Leonard on 91-87-3943Etfhvguqkc filtration rate [Volume Rate/Area] in Serum, Plasma or Blood by Ocekbzptoj37 mL/min/1.73m???Low>=60Protestant HospitalComment on above:Estimated Glomerular Filtration Rate (eGFR) is [...] Leonard on 07-15-2025 Hematocrit (Bld) [Volume fraction]27.6 %Low36.0-46.0[facility]ant HospitalHemoglobin [Mass/volume] in BloodOrdered By: Valentin Leonard on 07-15-2025 Hemoglobin (Bld) [Mass/Vol]8.9 g/dLLow11.5-15.5FFulton County [facility] Center Iron and Iron binding capacity panelon 27-85-9374Anzg [Mass/Vol]45 ug/dLNormal 41-186[facility] on above:Order Comment: Specimen Type: BLOOD SPECIMEN Ordering Facility: [facility] Address: [address] [place], [place] [address]Performed By: #### 69576-8, 2283-8, 9, 4 #### [facility] CLIA [id number] [address] [place] [address] [place] AMERICAIron binding capacity [Mass/Vol]255 ug/eJKlhjhq863-438PzyyicjclKnox Community Hospital on above:Order Comment: Specimen Type: BLOOD SPECIMEN Ordering Facility: [facility] Address: [address] [place], [place] [address]Performed By: #### 67142-5, 2284-8, 2-9, 6-4 #### [facility] CLIA [id number] [address] [place] [address] [place] AMERICAIron/TIBC [Molar ratio]17.6 %Nqgcfv52.0-57.0[facility] on above:Order Comment: Specimen Type: BLOOD SPECIMEN Ordering Facility: [facility] Address: [address] [place], [place] [address]Performed By: #### 80375-7, 2284-8, 2131-9, 6-4 #### [facility] CLIA [id number] [address] [place] [address] [place] AMERICAIron binding capacity [Mass/volume] in Serum or PlasmaOrdered By: Valentin Leonard on 22-55-6712Vdul binding capacity [Mass/Vol]255 ug/pH413-311TkqwffdxkProtestant HospitalIron saturation [Mass Fraction] in Serum or PlasmaOrdered By: Valentin Leonard on 62-10-3230Uhuv saturation [Mass fraction]17.6 %15.0-57.0Protestant HospitalLaboratory - Chemistry and Chemistry - challengeOrdered By: Valentin Abrebecca on 82-90-3276Hybovvi [Mass/Vol]3.7 g/dLLow3.9-4.9Protestant HospitalALP [Catalytic activity/Vol]45 U/B06-341RcpwpyvkdProtestant HospitalALT [Catalytic activity/Vol]10 U/L7-38Protestant HospitalAST [Catalytic activity/Vol]16 U/J52-63RncpwtzqbProtestant HospitalBilirubin [Mass/Vol]0.3 mg/dL0.2-1.3FFulton County Health CenterCalcium [Mass/Vol]9.0 mg/dL8.5-10.2FFulton County Health CenterChloride [Moles/Vol]101 mmol/L 98-107Protestant HospitalCO2 [Moles/Vol]28 mmol/Z36-02WulcyxqakProtestant HospitalCreatinine [Mass/Vol]1.64 mg/dLHigh0.58-0.96Protestant HospitalFerritin [Mass/Vol]174.0 ng/mL14.7-205.1FFulton County Health CenterGlucose [Mass/Vol]103 mg/iQQmog55-12LapbmifjqProtestant HospitalComment on above:The [place] Diabetes Association (ADA) provides guidance [...] diabetes.Reference: [employer] in Diabetes 2016, [place] [employer] Diabetes Association. Diabetes Care. 2016.39(Suppl 1).Iron [Mass/Vol]45 ug/zS98-380 Protestant HospitalPotassium [Moles/Vol]4.7 mmol/L3.7-5.1FFirelands Regional Medical Centerodium [Moles/Vol]139 mmol/P088-023JafscfcvdProtestant HospitalUrea nitrogen [Mass/Vol]32 mg/dLHigh7-21Pro[facility]ant HospitalLaboratory - Chemistry and Chemistry - challengeOrdered By: Nathan Hathaway on 39-73-9767Enwrndddr (Vitamin B12) [Mass/Vol]1457 pg/mMHfby750-9173JgscrqzgeProtestant HospitalLaboratory - Hematology and Cell countsOrdered By: Valentin Leonard on 85-95-3932Izpisiyfsgk (Bld) [#/Vol]0.16 10*3/uL<0.46Protestant HospitalImmature granulocytes (Bld) [#/Vol]0.03 10*3/uL<0.10 Protestant HospitalImmature granulocytes/100 WBC (Bld)0.5 % Protestant HospitalLeukocytes [#/volume] corrected for nucleated erythrocytes in Blood by Automated counOrdered By: Valentin Suarezankelizabeth on 07-15-2025 WBC corrected for nucl RBC Auto (Bld) [#/Vol]6.28 k/uL3.70-11.00Protestant HospitalLymphocytes Auto (Bld) [#/Vol]Ordered By: Valentin Abhyankar on 90-29-6341Qwqftfqjokl (Bld) [#/Vol]0.77 10*3/uLLow1.00-4.00Protestant HospitalLymphocytes/100 WBC Auto (Bld)Ordered By: Valentin hyankar on 59-66-7243Ipsvowmfetm/100 WBC (Bld)12.3 %[facility] MCH Auto (RBC) [Entitic mass]Ordered By: Valentin Faithhyankar on 46-75-2764LRC (RBC) [Entitic mass]28.8 pg26.0-34.0Protestant HospitalMCHC Auto (RBC) [Mass/Vol]Ordered By: Valentin Faithhyankar on 54-39-7248BCJJ (RBC) [Mass/Vol]32.2 g/dL30.5-36.0Protestant HospitalMCV Auto (RBC) [Entitic vol] Ordered By: Valentin Suarezankelizabeth on 63-93-0471YDG (RBC) [Entitic vol]89.3 fL 80.0-100.0Protestant Hospital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 ANALYSISon 25-19-6681EPC17 L265P MUTATION RESULTNormalCSelect Medical OhioHealth Rehabilitation HospitalComment on above:Order Comment: Specimen Type: BLOOD SPECIMEN Ordering Facility: [facility] Address: [address] [place], [place] [address]Result Comment: 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 ANALYSIS Laboratory Accession Number: [id number] Sample Type: Peripheral Blood Result: MYD88 L265P (c.794T>C, p.Rby325Kiq) detected with variant allele fraction (vaf) 0.98%. Interpretation: The MYD88 missense variant L265P (c.794T>C, p.Nym471Dsz) is present. L265P is highly characteristic of [...] presence or absence of the L265P (c.794T>C, p.Ocx035Wod; g.09008546; [id number]) variant (mutation) in MYD88 gene (NM_002468.4) using [...] morphologic presentation. References: 1) Nikkie VN, Cristhian ADAMS, Hannah R, et al. Oncogenically active MYD88 mutations in human lymphoma. Nature 2011. 470(3361):115-9. 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 Am J Clin Pathol. 2013. 140(3):387-94. 3) Obi SP, Spencer L, Brooks G, et al. MYD88 L265P somatic mutation in Waldenstrom's macroglobulinemia. N Engl J Med. 2012. 367(1)121-33. 4) Almonte JQ, Juan J YS, Ariel LL, Tanya K. Toll-like receptors and cancer: MYD88 mutation and inflammation. Front Immunol. 2014 May 28;367(5):1-10. 5) Gabriel X, Li W, Maykel Q, et al. MYD88 L265P Mutation in Lymphoid Malignancies. Cancer Res. 2018. 78(10):5957-43. Disclaimer: This test was developed and its performance characteristics determined by [facility]'s Pathology and Laboratory Medicine Department. It has not been cleared or approved by the FDA. [facility]'s Pathology and Laboratory Medicine Department is regulated under CLIA as certified to perform high-complexity testing. This test is used for clinical purposes. It should not be regarded as investigational or for research. Test performed at [facility], [address] [place] [address]. CLIA Number: [id number] Interpretation performed by Natalee Bolanos, PhD, [facility]DPerformed By: #### 01283- 5 #### [facility] CLIA [id number] [address] [place] [address] [place] AMERICAMonocytes Auto (Bld) [#/Vol] Ordered By: Valentin Leonard on 35-82-1136Ffvvfgumo (Bld) [#/Vol]0.65 10*3/uL <0.87Protestant HospitalMonocytes/100 WBC Auto (Bld)Ordered By: Valentin Leonard on 53-04-6762Ijioydwqo/100 WBC (Bld)10.4 %Protestant HospitalNeutrophils Auto (Bld) [#/Vol]Ordered By: Valentin Abhyankar on 08-96-9307Xmhuhkygfro (Bld) [#/Vol]4.62 10*3/uL1.45-7.50Protestant HospitalNeutrophils/100 WBC Auto (Bld)Ordered By: Valentin Leonard on 94-30-8816Uympsmwhpxs/100 WBC (Bld)73.5 %Protestant HospitalNo Panel InformationOrdered By: Valentin Leonard on 64-87-5391Bjdiqj65.5 ng/mL>4.7 Protestant HospitalMYD88 L265P MutationSee commentProtestant HospitalComment on above: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 ANALYSISLaboratory Accession Number: [id number] Type: Peripheral BloodResult:MYD88 L265P (c.794T>C, p.Evs703Pqw) detected with variant allelefraction (vaf) 0.98%.Interpr etation:The MYD88 missense variant L265P (c.794T>C, p.Cph684Cdb) is present.L265P is highly characteristic of lymphoplasmacyticlymphoma/Waldenstrom's macroglobulinemia, where it is found in >90% ofcases. This abnormality may also be found in diffuse large B- celllymphomas and in a small percentage of other small B-cell neoplasmsincluding chronic lymphocytic leukemia and marginal zone lymphomas.Clinical and pathologic correlation is suggested.Methodology:DNA extracted from the specimen is interrogated for the presence orabsence of the L265P (c.794T>C, p.Tiw197Luw; g.80661715; [id number])variant (mutation) in MYD88 gene (NM_002468.4) using droplet digitalpolymerase chain reaction (PCR). Droplet digital PCR includespartitioning of DNA into droplets, droplet independent PCR,interrogation using allele specific hydrolysis probes, and analysis ofdroplets using Poisson distribution to calculate the copy number ofMYD88 L265P and wild-type MYD88. The reference genome used wyEHUk31/hg38.Limitations:This test is designed to detect the L265P variant in the MYD88 gene.Uncommon variants or single nucleotide polymorphisms may affectbinding of probes or primers and may rarely result in false negative,false positive, or indeterminate results. Other variants in MYD88 willnot be identifiedby this test. The lower limit of detection of thisassay is approximately 0.5% variant allele fraction (vaf) for dhlFGS30 L265P variant. Although vaf is provided for reference, thisvalue should be interpreted with caution as this test is intended forqualitative purposes and is not validated as a quantitative test. ZcrMNZ27 L265P result cannot be used on a standalone basis for diagnosisof lymphoplasmacytic lymphoma and needs to be considered in thecontext of clinical and morphologic presentation.References:1) Lundy VN, Cristhian RM, Hannah R, et al. Oncogenically active CZW22gvlggvxwo in human lymphoma. Nature 2011. 470(0036):115-9.2) Joya SL, Anai WagonerJ, DW, James L, Mikey JR, Hsi ED: BGR84M729I somatic mutation: its usefulness in the differential diagnosisof bone marrow involvement by B-cell lymphoproliferative disorders. AmJ Clin Pathol. 2013. 140(3):387-94.3) Obi SP, Spencer L, Brooks G,et al. 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 N Engl J Med. 2012. 367(7)646-33.4) Gage JQ, Juan J YS, Ariel LL, Horikawa K. Toll-like receptorsand cancer: MYD88 mutation and inflammation. Front Immunol. 2014 ;367(5):1-10.5) Nery X, Francy W, Maykel Q, et al. 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 Cancer Res. 2018. 78(10):2844-70.Disclaimer:This test was developed and its performance characteristics determinedby [facility]'s Pathology and [facility] Medicine Department. Ithas not been cleared or approved by the FDA. [facility] is regulated under CLIAas certified to perform high-complexity testing. Thistest is used forclinical purposes. It should not be regarded as investigational or forresearch.Testperformed at [facility], [address] [place], [place] [address] [address]. CLIA Number: [id number] performed by Natalee Bolanos, PhD, [facility]DNucleated RBC Auto (Bld) [#/Vol]Ordered By: Valentin Leonard on 87-24-3944Zywcfahrc RBC (Bld) [#/Vol]10*3/uL<0.01Protestant HospitalNucleated erythrocytes [Presence] in Blood by Automated count Ordered By: Valentin Leonard on 80-92-8340Lalcrunst RBC Auto Ql (Bld)0.0 /100{WBC}Protestant HospitalPlatelet mean volume Auto (Bld) [Entitic vol]Ordered By: Valentin Leonard on 87-41-0188Qejwmfzz mean volume (Bld) [Entitic vol]9.9 fL9.0-12.7FFulton County Health CenterPlatelets Auto (Bld) [#/Vol]Ordered By: Valentin Leonard on 92-49-8669Mbckjpbzn (Bld) [#/Vol]295 10*3/kV500-053YsmkkefjdProtestant HospitalProtein [Mass/volume] in Serum or PlasmaOrdered By: Valentin Leonard on 57-02-8470Ivpodms [Mass/Vol]5.9 g/dLLow 6.3-8.0Protestant HospitalRBC Auto (Bld) [#/Vol]Ordered By: Valentin Leonard on 98-13-6045IPV (Bld) [#/Vol]3.09 10*6/uLLow3.90-5.20[facility] Regional Medical Centererum or plasma anion gap determinationOrdered By: Valentin Leonard on 00-64-6227Jlbhb gap [Moles/Vol]10 mmol/L8-15[facility] Medical Centererum or plasma erythropoietin (EPO) measurement (units/volume) Ordered By: Valentin Leonard on 36-51-5095Ijmnwporqjbwbm (EPO) Qn26.4 mIU/mLHigh 2.6-18.5FFulton County Health CenterVit B12 SerPl-mCncon 07-15-2025 Cobalamin (Vitamin B12) [Mass/Vol]1457 pg/gTGrde696-5478CseqwmvjsSelect Medical OhioHealth Rehabilitation HospitalComsinai-grace hospital on above:Order Comment: Specimen Type: BLOOD SPECIMEN Ordering Facility: [facility] Address: [address] [place], [place] [address]Performed By: #### 05568-9, 2284-8, 2132-9, 2276-4 #### [facility] CLIA [id number] [address] [place] [address] [place] OF AMERICACNPNon [id number] Telephone (NCCAP) LASHAUN JOAQUIN ([id number]) 1940 F Date Time Provider Department 07/10/25 [...] Hathaway's office Please return the call at [phone] KERRY Menendez Felicia, RN 07/10/2025 12:07 PM [...] Date Reviewed: 07/08/2025 Reviewed by: Loree Rosado - Fully Assessed Reason for Visit: Orders [...] (None) Encounter Status:Closed by YOLANDA COBIAN on 07/10/25NoalCSelect Medical OhioHealth Rehabilitation HospitalAlbumin [Mass/volume] in Serum or PlasmaOrdered By: Nathan Hathaway on 47-15-3111Etwider [Mass/Vol]3.33 g/dLLow3.43-5.41[facility] W Auto Differential panel (Bld)on 69-15-6192Quvcqqwcq (Bld) [#/Vol] 0.05 10*3/uLNormal<0.11COhioHealth Van Wert Hospital on above:Order Comment: Specimen Type: BLOOD SPECIMEN Ordering Facility: [facility] Address: [address] [place], [place] [address]Performed By: #### 42042-0 #### [facility] CLIA [id number] [address] [place] [address] [place] AMERICABasophils/100 WBC (Bld)0.9 % [facility] on above:Order Comment: Specimen Type: BLOOD SPECIMEN Ordering Facility: [facility] Address: [address] [place], [place] [address]Performed By: #### 25802-1 #### [facility] CLIA [id number] [address] [place] [address] [place] AMERICADifferential cell count method Nom (Bld)AutoNormalCOhioHealth Van Wert Hospital on above:Order Comment: Specimen Type: BLOOD SPECIMEN Ordering Facility: [facility] Address: [address] [place], [place] [address]Performed By: #### 96306-9 #### [facility] CLIA [id number] [address] [place] [address] [place] AMERICAEosinophils (Bld) [#/Vol] 0.18 10*3/uLNormal<0.46[facility] on above:Order Comment: Specimen Type: BLOOD SPECIMEN Ordering Facility: [facility] Address: [address] [place], [place] [address]Performed By: #### 11907-1 #### [facility] CLIA [id number] [address] [place] [address] [place] AMERICAEosinophils/100 WBC (Bld)3.3 %NormalKnox Community Hospital on above:Order Comment: Specimen Type: BLOOD SPECIMEN Ordering Facility: [facility] Address: [address] [place], [place] [address]Performed By: #### 71986-7 #### [facility] [place] [id number] [address] [place] [address] [place] AMERICAErythrocyte distribution width (RBC) [Ratio]13.5 %Yguiea33.5-15.0[facility] on above:Order Comment: Specimen Type: BLOOD SPECIMEN Ordering Facility: [facility] Address: [address] [place], [place] [address]Performed By: #### 33728-1 #### [facility] IA [id number] [address] [place] [address] [place] AMERICAHematocrit (Bld) [Volume fraction]27.8 %Low36.0-46.0[facility] on above:Order Comment: Specimen Type: BLOOD SPECIMEN Ordering Facility: [facility] Address: [address] [place], [place] [address]Performed By: #### 93951-5 #### [facility] [place] [id number] [address] [place] [address] [place] AMERICAHemoglobin (Bld) [Mass/Vol] 9.0 g/dLLow11.5-15.5COhioHealth Van Wert Hospital on above:Order Comment: Specimen Type: BLOOD SPECIMEN Ordering Facility: [facility] Address: [address] [place], [place] [address]Performed By: #### 85053-7 #### [facility] [place] [id number] [address] [place] [address] [place] AMERICAImmature granulocytes (Bld) [#/Vol]0.03 10*3/uLNormal<0.10[facility] on above:Order Comment: Specimen Type: BLOOD SPECIMEN Ordering Facility: [facility] Address: [address] [place], [place] [address]Performed By: #### 01876-3 #### [facility] IA [id number] [address] [place] [address] [place] AMERICAImmature granulocytes/100 WBC (Bld)0.5 %NormalKnox Community Hospital on above:Order Comment: Specimen Type: BLOOD SPECIMEN Ordering Facility: [facility] Address: [address] [place], [place] [address]Performed By: #### 70674-7 #### [facility] CLIA [id number] [address] [place] [address] [place] AMERICALymphocytes (Bld) [#/Vol] 0.87 10*3/uLLow1.00-4.00[facility] on above:Order Comment: Specimen Type: BLOOD SPECIMEN Ordering Facility: [facility] Address: [address] [place], [place] [address]Performed By: #### 38766-7 #### [facility] CLIA [id number] [address] [place] [address] STATES OF AMERICALymphocytes/100 WBC (Bld) 15.9 %NormalKnox Community Hospital on above:Order Comment: Specimen Type: BLOOD SPECIMEN Ordering Facility: [facility] Address: [address] [place], [place] [address]Performed By: #### 96260-4 #### [facility] CLIA [id number] [address] [place] [address] OF [facility] (RBC) [Entitic mass]28.8 acNtiarz38.0-34.0[facility] on above:Order Comment: Specimen Type: BLOOD SPECIMEN Ordering Facility: [facility] Address: [address] [place], [place] [address]Performed By: #### 45447-0 #### [facility] CLIA [id number] [address] [place] [address] (RBC) [Mass/Vol]32.4 g/vSUohsdd18.5-36.0[facility] on above:Order Comment: Specimen Type: BLOOD SPECIMEN Ordering Facility: [facility] Address: [address] [place], [place] [address]Performed By: #### 44945-7 #### [facility] CLIA [id number] [address] [place] [address] [place] AMERICAMCV (RBC) [Entitic vol]89.1 cQRtqubx73.0-100.0[facility] on above:Order Comment: Specimen Type: BLOOD SPECIMEN Ordering Facility: [facility] Address: [address] [place], [place] [address]Performed By: #### 39773-2 #### [facility] IA [id number] [address] [place] [address] [place] AMERICAMonocytes (Bld) [#/Vol]0.61 10*3/uLNormal<0.87[facility] on above:Order Comment: Specimen Type: BLOOD SPECIMEN Ordering Facility: [facility] Address: [address] [place], [place] [address]Performed By: #### 55886-6 #### [facility] CLIA [id number] [address] [place] [address] [place] AMERICAMonocytes/100 WBC (Bld)11.2 %NormalKnox Community Hospital on above:Order Comment: Specimen Type: BLOOD SPECIMEN Ordering Facility: [facility] Address: [address] [place], [place] [address]Performed By: #### 22244-8 #### [facility] CLIA [id number] [address] [place], [place] [address] [place] AMERICANeutrophils (Bld) [#/Vol] 3.72 10*3/uLNormal1.45-7.50[facility] on above:Order Comment: Specimen Type: BLOOD SPECIMEN Ordering Facility: [facility] Address: [address] [place], [place] [address]Performed By: #### 63105-6 #### [facility] CLIA [id number] [address] [place] [address] [place] AMERICANeutrophils/100 WBC (Bld) 68.2 %NormalKnox Community Hospital on above:Order Comment: Specimen Type: BLOOD SPECIMEN Ordering Facility: [facility] Address: [address] [place], [place] [address]Performed By: #### 92709-5 #### [facility] CLIA [id number] [address] [place] [address] [place] AMERICANucleated RBC (Bld) [#/Vol] 10*3/uLNormal<0.01[facility] on above:Order Comment: Specimen Type: BLOOD SPECIMEN Ordering Facility: [facility] Address: [address] [place], [place] [address]Performed By: #### 45157-8 #### [facility] CLIA [id number] [address] [place] [address] [place] AMERICANucleated RBC/100 WBC (Bld) [Ratio]0.0 /100 WBCNormalCOhioHealth Van Wert Hospital on above:Order Comment: Specimen Type: BLOOD SPECIMEN Ordering Facility: [facility] Address: [address] [place], [place] [address]Performed By: #### 86585-2 #### [facility] CLIA [id number] [address] [place] [address] [place] AMERICAPlatelet mean volume (Bld) [Entitic vol]9.5 fLNormal9.0-12.7COhioHealth Van Wert Hospital on above: Order Comment: Specimen Type: BLOOD SPECIMEN Ordering Facility: [facility] Address: [address] [place], [place] [address]Performed By: #### 45111-7 #### [facility] CLIA [id number] [address] [place] [address] [place] AMERICAPlatelets (Bld) [#/Vol]275 10*3/yHHowdqv599-525HdpgqbzcfKnox Community Hospital on above:Order Comment: Specimen Type: BLOOD SPECIMEN Ordering Facility: [facility] Address: [address] [place], [place] [address]Performed By: #### 41116-7 #### [facility] CLIA [id number] [address] [place], [place] [address]RB (Bld) [#/Vol]3.12 10*6/uLLow3.90-5.20[facility] on above:Order Comment: Specimen Type: BLOOD SPECIMEN Ordering Facility: [facility] Address: [address] [place], [place] [address]Performed By: #### 58225-1 #### [facility] CLIA [id number] [address] [place], [place] [address]W (Bld) [#/Vol]5.46 10*3/uLNormal3.70-11.00[facility] on above:Order Comment: Specimen Type: BLOOD SPECIMEN Ordering Facility: [facility] Address: [address] [place], [place] [address]Performed By: #### 46374-5 #### [facility] CLIA [id number] [address] [place], [place] [address]CNOVSPon 09-25-8838JTNTCG Visit (SP) Office ([place]) LASHAUN JOAQUIN ([id number]) 1940 F Date Time Provider Department 07/08/25 10:00 AM PAOLO CASILLAS During your visit today, we recorded the following information about you: Temperature Pulse Respiration Blood pressure 96.8 degrees 66/minute 18/minute 178/68 Weight Height 91.8 kg 1.664 m Paolo Casillas APRN.[employer]IE ENGRAVING SUPERVISOR 07/10/2025 6:42 PM Signed PATIENT NAME: [...] HISTORY: FAMILY HISTORY Proble (more content not included)...NormalSouthwest General Health CenterPNon 90-60-5580AGZKSvgzeorrf ([facility]) LASHAUN JOAQUIN ([id number]) 1940 F Date Time Provider Department 07/08/25 PAOLO CASILLAS During your visit today, we recorded the following information about you: Bessie SabinoKayla 07/08/2025 11:24 AM Signed Please call Her daughter Marianna with today's lab results. [phone] Yolanda Cobian RN 07/10/2025 9:17 AM Signed [...] - Unknown Date Reviewed: 07/08/2025 Reviewed by: Rosado, Loree, MA - Fully Assessed Reason for Visit: [...] (None) Encounter Status:Closed by YOLANDA COBIAN on 07/10/25NormalCSelect Medical OhioHealth Rehabilitation HospitalComprehensive metabolic 2000 panelon 44-87-3136Lknnvrf [Mass/Vol]3.6 g/dLLow3.9-4.9COhioHealth Van Wert Hospital on above:Order Comment: Specimen Type: BLOOD SPECIMEN Ordering Facility: [facility] Address: [address] [place], [place] [address]Performed By: #### 76051-5 #### [facility] CLIA [id number] [address] [place] [address] [place] AMERICAALP [Catalytic activity/Vol] 48 U/NZnuuem81-614KgcbrnkbmKnox Community Hospital on above:Order Comment: Specimen Type: BLOOD SPECIMEN Ordering Facility: [facility] Address: [address] [place], [place] [address]Performed By: #### 58137-7 #### [facility] CLIA [id number] [address] [place] [address] [place] AMERICAALT [Catalytic activity/Vol] 13 U/LNormal7-38[facility] on above:Order Comment: Specimen Type: BLOOD SPECIMEN Ordering Facility: [facility] Address: [address] [place], [place] [address]Performed By: #### 27486-9 #### [facility] CLIA [id number] [address] [place], [place] [address] [place] AMERICAAnion gap [Moles/Vol]11 mmol/LNormal8-15[facility] on above:Order Comment: Specimen Type: BLOOD SPECIMEN Ordering Facility: [facility] Address: [address] [place], [place] [address]Performed By: #### 28156-8 #### [facility] CLIA [id number] [address] [place] [address] [place] AMERICAAST [Catalytic activity/Vol] 22 U/DEciyha59-59RoznatuilKnox Community Hospital on above:Order Comment: Specimen Type: BLOOD SPECIMEN Ordering Facility: [facility] Address: [address] [place], [place] [address]Performed By: #### 59333-4 #### [facility] CLIA [id number] [address] [place] [address] [place] AMERICABilirubin [Mass/Vol]0.3 mg/dLNormal0.2-1.3COhioHealth [facility] on above:Order Comment: Specimen Type: BLOOD SPECIMEN Ordering Facility: [facility] Address: [address] [place], [place] [address]Performed By: #### 52153-2 #### [facility] CLIA [id number] [address] [place] [address] [place] AMERICACalcium [Mass/Vol]8.9 mg/dL Normal8.5-10.2COhioHealth Van Wert Hospital on above:Order Comment: Specimen Type: BLOOD SPECIMEN Ordering Facility: [facility] Address: [address] [place], [place] [address]Performed By: #### 96367-0 #### [facility] CLIA [id number] [address] [place] [address] [place] AMERICAChloride [Moles/Vol]106 mmol/CElhcmt87-084ZezmoahuzKnox Community Hospital on above:Order Comment: Specimen Type: BLOOD SPECIMEN Ordering Facility: [facility] Address: [address] [place], [place] [address]Performed By: #### 61520-3 #### [facility] CLIA [id number] [address] [place] [address] [place] AMERICACO2 [Moles/Vol]24 mmol/L Nknaov85-35XacdljybhKnox Community Hospital on above:Order Comment: Specimen Type: BLOOD SPECIMEN Ordering Facility: [facility] Address: [address] [place], [place] [address]Performed By: #### 46202-6 #### [facility] CLIA [id number] [address] [place] [address] [place] AMERICACreatinine [Mass/Vol]1.65 mg/dLHigh0.58-0.96[facility] on above:Order Comment: Specimen Type: BLOOD SPECIMEN Ordering Facility: [facility] Address: [address] [place], [place] [address]Performed By: #### 14448-3 #### [facility] CLIA [id number] [address] [place] [address] [place] AMERICAeGFRcr SerPlBld CKD-EPI 2020 31 mL/min/1.73m???Low>=60[facility] on above:Order Comment: Specimen Type: BLOOD SPECIMEN Ordering Facility: [facility] Address: [address] [place], [place] [address]Result Comment: Estimated Glomerular Filtration Rate (eGFR) is [...] not accurately reflect actual GFR.Performed By: #### 22771-5 #### [facility] [place] [id number] [address] [place] [address] [place] AMERICAGlucose [Mass/Vol]100 mg/dL Ycxf12-17DhoinunsfKnox Community Hospital on above:Order Comment: Specimen Type: BLOOD SPECIMEN Ordering Facility: [facility] Address: [address] [place], [place] [address]Result Comment: The [place] Diabetes [employer] (ADA) [...] [place] Diabetes [employer]. Diabetes Care. 2016.39(Suppl 1).Performed By: #### 38943-4 #### [facility] [place] [id number] [address] [place] [address] [place] AMERICAPotassium [Moles/Vol]5.3 mmol/LHigh3.7-5.1COhioHealth Van Wert Hospital on above:Order Comment: Specimen Type: BLOOD SPECIMEN Ordering Facility: [facility] Address: [address] [place], [place] [address]Performed By: #### 30249-0 #### [facility] [place] [id number] [address] [place] [address] [place] AMERICAProtein [Mass/Vol]5.8 g/dL Low6.3-8.0[facility] on above:Order Comment: Specimen Type: BLOOD SPECIMEN Ordering Facility: [facility] Address: [address] [place], [place] [address]Performed By: #### 44245-1 #### [facility] CLIA [id number] [address] [place] [address] [place] AMERICASodium [Moles/Vol]141 mmol/L Cqodar042-793TjwwgycjxKnox Community Hospital on above:Order Comment: Specimen Type: BLOOD SPECIMEN Ordering Facility: [facility] Address: [address] [place], [place] [address]Performed By: #### 67404-7 #### [facility] CLIA [id number] [address] [place] [address] [place] AMERICAUrea nitrogen [Mass/Vol]27 mg/dLHigh7-21[facility] on above:Order Comment: Specimen Type: BLOOD SPECIMEN Ordering Facility: [facility] Address: [address] [place], [place] [address]Performed By: #### 00804-3 #### [facility] CLIA [id number] [address] [place] [address] [place] AMERICAGlomerular filtration rate [Volume Rate/Area] in Serum, Plasma or Blood by CreatinineOrdered By: Nathan Hathaway on 06-27-4807Bjsktetggh filtration rate [Volume Rate/Area] in Serum, Plasma or Blood by Cjlnebjtui37 mL/min/1.73m???Low>=60[facility] Comment on above:Estimated Glomerular Filtration Rate [...] not accurately reflect actual GFR.IMMUNOFIXATION SCREEN, SERUMon 52-76-6451YTHSQMOWKXFUFH (MPA)Poorly defined region of restricted mobility in [...] further for monoclonal gammopathy. Clinical correlation is necessary.NormalKnox Community Hospital on above:Order Comment: Specimen Type: BLOOD SPECIMEN Ordering Facility: [facility] Address: [address] [place], [place] [address]Performed By: #### 97872-0 #### [facility] CLIA [id number] [address] [place] [address] [place] AMERICAMPA RESULTA poorly defined region of restricted mobility is present that may represent an M protein. AbnormalNo M protein is identified.[facility] on above: Order Comment: Specimen Type: BLOOD SPECIMEN Ordering Facility: [facility] Address: [address] [place], [place] [address]Performed By: #### 71889-5 #### [facility] CLIA [id number] [address] [place] [address] [place] OF AMERICASTAFF REVIEW ([facility])Reviewed by Dr. Jennifer David [facility] on above:Order Comment: Specimen Type: BLOOD SPECIMEN Ordering Facility: [facility] Address: [address] [place], [place] [address]Performed By: #### 83763-5 #### [facility] CLIA [id number] [address] [place] [address] [place] OF AMERICAIMMUNOGLOBULINS,IGG,IGA,IGM on 11-33-0905XlE [Mass/Vol]64 mg/gIDyu82-630AtyjjtgxtKnox Community Hospital on above:Order Comment: Specimen Type: BLOOD SPECIMEN Ordering Facility: [facility] Address: [address] [place], [place] [address]Performed By: #### SERIMM #### [facility] CLIA [id number] [address] [place] [address] [place] AMERICAIgG [Mass/Vol]280 mg/dLLow 700-1600[facility] on above:Order Comment: Specimen Type: BLOOD SPECIMEN Ordering Facility: [facility] Address: [address] [place], [place] [address]Performed By: #### SERIMM #### [facility] CLIA [id number] [address] [place] [address] [place] AMERICAIgM [Mass/Vol]317 mg/dLHigh 40-230Promedica Memorial HospitalComment on above:Order Comment: Specimen Type: BLOOD SPECIMEN Ordering Facility: [facility] Address: [address] [place], [place] [address]Performed By: #### SERIMM #### [facility] CLIA [id number] [address] [place] [address] [place] AMERICAIgA [Mass/volume] in Serum or PlasmaOrdered By: Fanny Bedoya on 50-94-4486DgH [Mass/Vol]64 mg/nIMit27-842 [facility] HospitalIgG [Mass/volume] in Serum or PlasmaOrdered By: Fanny Bedoya on 29-85-6394MzB [Mass/Vol]280 mg/yJSpu933-8060ChuvpzblmProtestant HospitalIgM [Mass/volume] in Serum or PlasmaOrdered By: Fanny Bedoya on 60-10-6973QcQ [Mass/Vol]317 mg/yGQecc58-121RitmqrcyjProtestant Hospital Immunoglobulin light chains.kappa.free [Mass/volume] in SerumOrdered By: Nathan Hathaway on 17-84-6805Snydmvqwgkzack light chains.kappa.free (S) [Mass/Vol] 300.9 mg/LHigh3.3-19.4FFulton County Health CenterComment on above:Rarely, increased serum free light chains levels may not be detected or accurately quantified due to prozone phenomenon or in high viscosity samples using this immunoturbidimetric assay. Correlation with other laboratory results and clinical findings is recommended. The [place] Free Light Chain was performed using the Binding Site Optilite immunoturbidimetric method. Result obtained with different assay methods or kits cannot be used interchangeably.Immunoglobulin light chains.kappa.free/Immunoglobulin light chains.lambda.free [MassOrdered By: Nathan Hathaway on 78-18-7967Jdqcrnmtabduwy light chains.kappa.free/Immunoglobulin light chains.lambda.free (S) [Mass ratio]12.64 High0.26-1.65[facility] HospitalImmunoglobulin light chains.lambda.free [Mass/volume] in Serum or PlasmaOrdered By: Nathan Hathaway on 01-62-6263Kigvcntrhttmiv light chains.lambda.free [Mass/Vol]23.8 mg/L5.7-26.3 [facility] HospitalComment on above:Rarely, increased serum free light [...] methods or kits cannot be used interchangeably.KAPPA/BOWLES,FREE,SERon 35-80-8800Ryjzcznpbxlcei light chains.kappa.free (S) [Mass/Vol]300.9 mg/LHigh3.3-19.4CSelect Medical OhioHealth Rehabilitation HospitalComsinai-grace hospital on above:Order Comment: Specimen Type: BLOOD SPECIMEN Ordering Facility: [facility] Address: [address] [place], [place] [address]Result Comment: Rarely, increased serum free light chains levels may not be detected or accurately quantified due to prozone phenomenon or in high viscosity samples using this immunoturbidimetric assay. Correlation with other laboratory results and clinical findings is recommended. The [place] Free Light Chain was performed using the Binding Site Optilite immunoturbidimetric method. Result obtained with different assay methods or kits cannot be used interchangeably.Performed By: #### KLFRS #### [facility] CLIA [id number] [address] [place] [address] [place] AMERICAImmunoglobulin light chains.kappa/Immunoglobulin light chains.lambda (S) [Mass ratio]12.64High 0.26-1.65[facility] on above:Order Comment: Specimen Type: BLOOD SPECIMEN Ordering Facility: [facility] Address: [address] [place], [place] [address]Performed By: #### KLFRS #### [facility] CLIA [id number] [address] [place] [address] [place] AMERICAImmunoglobulin light chains.lambda.free [Mass/Vol]23.8 mg/LNormal5.7-26.3CSelect [facility] Comment on above:Order Comment: Specimen Type: BLOOD SPECIMEN Ordering Facility: [facility] Address: [address] [place], [place] [address]Result Comment: Rarely, increased serum free light chains [...] be used interchangeably.Performed By: #### KLFRS #### [facility] CLIA [id number] [address] [place] [address] [place] AMERICALaboratory - Chemistry and Chemistry - challengeOrdered By: Nathan Hathaway on 36-44-4633Lklnneq [Mass/Vol] 3.6 g/dLLow3.9-4.9[facility] HospitalALP [Catalytic activity/Vol] 48 U/F56-108YqbgonxcsProtestant HospitalALT [Catalytic activity/Vol]13 U/L 7-38Protestant HospitalAST [Catalytic activity/Vol]22 U/L13-35 Protestant HospitalBilirubin [Mass/Vol]0.3 mg/dL0.2-1.3FFulton County Health CenterCalcium [Mass/Vol]8.9 mg/dL8.5-10.2FFulton County Health CenterChloride [Moles/Vol]106 mmol/L84-906VqpvtqfmyProtestant HospitalCO2 [Moles/Vol]24 mmol/R76-61VninwmnwxProtestant HospitalCreatinine [Mass/Vol]1.65 mg/dLHigh0.58-0.96[facility] HospitalGlucose [Mass/Vol]100 mg/pNWiic50-83ApmqujqisProtestant HospitalComment on above: The [place] Diabetes Association (ADA) provides [...] diabetes.Reference: [employer] in Diabetes 2016, [place] Diabetes Association. Diabetes Care. 2016.39(Suppl 1).Potassium [Moles/Vol]5.3 mmol/LHigh3.7-5.1FFulton County Health CenterProtein [Mass/Vol]0.00 g/dL<=0.00[facility] Sodium [Moles/Vol]141 mmol/E912-643UhqqktbhoProtestant HospitalUrea nitrogen [Mass/Vol]27 mg/dLHigh7-21[facility] HospitalNo Panel InformationOrdered By: Nathan Hathaway on 89-77-5914Ohwkmesxymyksm Interpretation Protestant HospitalLeuk/Lymph Sign Pathologist (Misc)Reviewed by Dr. Jennifer David [facility] HospitalMiscellaneous Test 6See commentProtestant HospitalComment on above:Not Applicable. Miscellaneous Test CommentReviewed by Dr. Jennifer David [facility] Galion HospitalProtein Electrophoresis InterpretProtestant Hospital Protein Electrophoresis NoteNo definitive M protein is identified on protein electrophoresis.No definitive M protein is identified on protein electrophoresis.[facility] Regional Medical Centererum ImmunofixationAbnormalNo M protein is identified.Protestant HospitalPROTEIN ELECTROPHORESIS SERUM (P)on 62-28-4087Dwbmxns [Mass/Vol]3.33 g/dLLow3.43-5.41Prom[facility] Memorial HospitalComsinai-grace hospital on above:Order Comment: Specimen Type: BLOOD SPECIMEN Ordering Facility: [facility] Address: [address] [place], [place] [address]Performed By: #### 27327-8 #### [facility] CLIA [id number] [address] [place] [address] [place] AMERICAAlpha 1 globulin Elph [Mass/Vol]0.42 g/dLNormal0.18-0.43[facility] on above: Order Comment: Specimen Type: BLOOD SPECIMEN Ordering Facility: [facility] Address: [address] [place], [place] [address]Performed By: #### 53124-3 #### [facility] CLIA [id number] [address] [place] [address] [place] AMERICAAlpha 2 globulin Elph [Mass/Vol]0.86 g/dLNormal0.42-0.98[facility] on above: Order Comment: Specimen Type: BLOOD SPECIMEN Ordering Facility: [facility] Address: [address] [place], [place] [address]Performed By: #### 37905-4 #### [facility] CLIA [id number] [address] [place] [address] [place] AMERICABeta globulin Elph [Mass/Vol]0.53 g/dLLow0.61-1.17[facility] on above:Order Comment: Specimen Type: BLOOD SPECIMEN Ordering Facility: [facility] Address: [address] [place], [place] [address]Performed By: #### 08607-6 #### [facility] CLIA [id number] [address] [place] [address] STATES OF AMERICAGamma globulin Elph [Mass/Vol]0.37 g/dLLow0.53-1.51[facility] on above:Order Comment: Specimen Type: BLOOD SPECIMEN Ordering Facility: [facility] Address: [address] [place], [place] [address]Performed By: #### 54132-4 #### [facility] CLIA [id number] [address] [place] [address] [place] AMERICAINTERPRETATION COMMENT FOR PROTEIN ELECTROPHORESISHypogammaglobulinemia is present, which can be seen in the setting of monoclonal gammopathy. If clinically indicated, monoclonal protein analysis and serum free light chain analysis are suggested to evaluate further for monoclonal gammopathy.NormalKnox Community Hospital on above:Order Comment: Specimen Type: BLOOD SPECIMEN Ordering Facility: [facility] Address: [address] [place], [place] [address]Performed By: #### 91570-8 #### [facility] CLIA [id number] [address] [place] [address] [place] AMERICAM-PROTEIN LOCATIONNormal [facility] on above:Order Comment: Specimen Type: BLOOD SPECIMEN Ordering Facility: [facility] Address: [address] [place], [place] [address]Result Comment: Not Applicable. Performed By: #### 93378-9 #### [facility] CLIA [id number] [address] [place] [address] [place] AMERICAProtein Fractions [Interp]No definitive M protein is identified on protein electrophoresis.NormalNo definitive M protein is identified on protein electrophoresis.[facility] on above:Order Comment: Specimen Type: BLOOD SPECIMEN Ordering Facility: [facility] Address: [address] [place], [place] [address]Performed By: #### 82808-0 #### [facility] CLIA [id number] [address] [place] [address] [place] AMERICAProtein.monoclonal Elph [Mass/Vol]0.00 g/dLNormal<=0.00[facility] on above:Order Comment: Specimen Type: BLOOD SPECIMEN Ordering Facility: [facility] Address: [address] [place], [place] [address]Performed By: #### 19540-7 #### [facility] CLIA [id number] [address] [place] [address] [place] OF AMERICASPE STAFF REVIEWReviewed by Dr. Jennifer David MDNoalCOhioHealth Van Wert Hospital on above:Order Comment: Specimen Type: BLOOD SPECIMEN Ordering Facility: [facility] Address: [address] [place], [place] [address]Performed By: #### 73773-2 #### [facility] CLIA [id number] [address] [place] [address] [place] AMERICAProt SerPl-mCncon 07-08-2025 Protein [Mass/Vol]5.5 g/dLLow6.3-8.0Prom[facility]ica Memorial HospitalComment on above: Order Comment: Specimen Type: BLOOD SPECIMEN Ordering Facility: [facility] Address: [address] [place], [place] [address]Performed By: #### 2885-2 #### [facility] CLIA [id number] [address] [place] [address] [place] AMERICAProtein [Mass/volume] in Serum or PlasmaOrdered By: Fanny Bedoya on 04-75-9544Qzhqvzt [Mass/Vol]5.5 g/dL Low6.3-8.0[facility] Medical Centererum or plasma alpha 1 globulin measurement by electrophoresis (mass/volume)Ordered By: Nathan Hathaway on 38-20-5944Ekndg 1 globulin Elph [Mass/Vol]0.42 g/dL0.18-0.43[facility] Medical Centererum or plasma alpha 2 globulin measurement by electrophoresis (mass/volume)Ordered By: Nathan Hathaway on 65-22-9720Qrxst 2 globulin Elph [Mass/Vol]0.86 g/dL0.42-0.98[facility] Centererum or plasma anion gap determinationOrdered By: Nathan Hathaway on 86-80-6826Efibl gap [Moles/Vol]11 mmol/L8-15[facility] Medical Centererum or plasma beta globulin measurement by electrophoresis (mass/volume)Ordered By: Nathan Hathaway on 35-01-3303Bfzp globulin Elph [Mass/Vol]0.53 g/dLLow0.61-1.17[facility] Medical Centererum or plasma gamma globulin measurement by electrophoresis (mass/volume)Ordered By: Nathan Hathaway on 53-32-7804Khjff globulin Elph [Mass/Vol]0.37 g/dLLow0.53-1.51[facility] CNPNon 41-78-2095MFCTLsogwzpsa (HEMASA) LASHAUN JOAQUIN ([id number]) 1940 F Date Time Provider Department 07/06/25 [...] Date Reviewed: 11/07/2023 Reviewed by: Paolo Casillas APRN.DIE ENGRAVING SUPERVISOR - Fully Assessed Reason for Visit: Lab Orders [1688] Cmt: nt Primary Visit Diagnosis:Abnormal SPEP [R77.8] Order(s):COMPLETE BLOOD COUNT AND DIFFERENTIAL [SQCBCDIF] Order #: [id number] FUTURE COMPREHENSIVE METABOLIC PANEL [SQCMP] Order #: [id number] FUTURE PROTEIN ELECTROPHORESIS SERUM W/INTERP [SQSEPG] Order #: [id number] FUTURE MONOCLONAL PROTEIN, SERUM (BLOOD) [SQSERMPA] Order #: [id number] FUTURE Prescriptions as of 07/06/2025 - carvedilol [...] (None) Encounter Status:Closed by FANNY BEDOYA on 07/06/25NoPremier Health Miami Valley Hospital SouthMicroalbumin [Mass/volume] in UrineOrdered By: Nathan Hathaway on 04-54-2975Zvgafoq DL <= 20 mg/L (U) [Mass/Vol]20.1 mg/dL<=30.0[facility] HospitalNo Panel InformationOrdered By: Nathan Hathaway on 30-67-9662Mefgh Random Fbsnuojzcf36.52 mg/dL20.00-300.00Pro[facility] HospitalUrine microalbumin/creatinine mass ratioOrdered By: Nathan Hathaway on 06-24-2025 Albumin/Creatinine DL <= 20 mg/L (U) [Mass ratio]237.8 mg/gHigh0.0-29.9[facility] HospitalComment on above:NO MICROALBUMINURIA 0-29 MG/GCLINICAL MICROALBUMINURIA 30-300 MG/GMACROALBUMINURIA >300 MG/GAlbumin [Mass/volume] in Serum or PlasmaOrdered By: Nathan Hathaway on 65-95-3172Hdnzmvx [Mass/Vol]3.2 g/dL 2.9-4.4FFulton County Health CenterBasophils Auto (Bld) [#/Vol]Ordered By: Nathan Hathaway on 28-92-7847Xanwagnsu (Bld) [#/Vol]0.0 10 3/uL0.0-0.1FFulton County Health CenterBasophils/100 WBC Auto (Bld)Ordered By: Nathan Hathaway on 87-18-6524Dwzkafjwo/100 WBC (Bld)0.7 %0.2-2.0[facility] Cholesterol in LDL Calc [Mass/Vol]Ordered By: Nathan Hathaway on 06-23-2025 Cholesterol in LDL [Mass/Vol]60.2 mg/dLProtestant HospitalComment on above:<100 mg/dl NIQEVVY055-338 mg/dl NEAR OR ABOVE UZQIMYQ315-674 mg/dl BORDERLINE AUIQ228-825 mg/dl HIGH>190 mg/dl VERY HIGHCholesterol in VLDL Calc [Mass/Vol]Ordered By: Nathan Hathaway on 26-07-3354Cztegdhuidz in VLDL [Mass/Vol] 17.8 mg/dLProtestant HospitalEosinophils/100 WBC Auto (Bld)Ordered By: Nathan Hathaway on 19-81-1295Mloysoqdpxh/100 WBC (Bld)2.7 %0.9-7.0[facility] HospitalErythrocyte distribution width Auto (RBC) [Ratio]Ordered By: Nathan Hathaway on 45-76-8795Erlpuimgtdf distribution width (RBC) [Ratio]13.8 %11.0-15.0[facility] HospitalGlobulin Calc (S) [Mass/Vol]Ordered By: Nathan Hathaway on 55-65-4351Gjufwyhp (S) [Mass/Vol]3.3 g/dLProtestant HospitalGlomerular filtration rate (GFR) estimation in non- AmericanOrdered By: Nathan Hathaway on 45-40-4585IQC/1.73 sq M.predicted among non-blacks MDRD (S/P/Bld) [Vol rate/Area]35 mL/min/{1.73_m2}Low>=60 mL/min/1.73m 2FFulton County Health CenterHematocrit Auto (Bld) [Volume fraction]Ordered By: Nathan Hathaway on 62-87-9649Huwyxsnjrb (Bld) [Volume fraction]28.3 %Low 36.0-48.0[facility] HospitalHemoglobin [Mass/volume] in Blood Ordered By: Nathan aHthaway on 75-85-6454Uzzhqprtkv (Bld) [Mass/Vol]9.3 g/dLLow 12.0-16.0[facility] HospitalIgA [Mass/volume] in Serum or Plasma Ordered By: Nathan Hathaway on 87-84-9800DgT [Mass/Vol]62 mg/qOOgenipnt20-037 Protestant HospitalIgG [Mass/volume] in Serum or PlasmaOrdered By: Nathan Hathaway on 12-74-3871ZwT [Mass/Vol]330 mg/sWJgbmxzjc040-6688ZcbqtqmpzProtestant HospitalIgM [Mass/volume] in Serum or PlasmaOrdered By: Nathan Hathaway on 87-82-6154VvM [Mass/Vol]325 mg/gSHbnapuqz99-552CusgwtlgaProtestant HospitalImmunoglobulin light chains.kappa.free [Mass/volume] in Serum Ordered By: Nathan Hathaway on 54-62-0251Jxytffmsemreum light chains.kappa.free (S) [Mass/Vol]224.6 mg/LAbnormal3.3-19.4FFulton County Health Center Immunoglobulin light chains.kappa.free/Immunoglobulin light chains.lambda.free [MassOrdered By: Nathan Hathaway on 55-83-6210Cbkykakvydhvwm light chains.kappa.free/Immunoglobulin light chains.lambda.free (S) [Mass ratio]10.59 Abnormal0.26-1.65Pro[facility] HospitalComment on above:Performed at: [address] [id number] Director: Carlos Witt PhD, Phone: [phone] light chains.lambda.free [Mass/volume] in Serum or PlasmaOrdered By: Nathan Hathaway on 06-23-2025 Immunoglobulin light chains.lambda.free [Mass/Vol]21.2 mg/L5.7-26.3FFulton County Health CenterIron binding capacity [Mass/volume] in Serum or Plasma Ordered By: Nathan Hathaway on 84-38-0641Jpgd binding capacity [Mass/Vol]245.0 ug/uMMxr096.0-450.0Protestant HospitalIron saturation [Mass Fraction] in Serum or PlasmaOrdered By: Nathan Hathaway on 81-62-3556Nsob saturation [Mass fraction]14.3 %[facility] HospitalLaboratory - Chemistry and Chemistry - challengeOrdered By: Nathan Hathaway on 68-54-0454BWZ [Catalytic activity/Vol]47 U/O91-967ZqbxxxvqkProtestant HospitalALT [Catalytic activity/Vol]18 U/L49-22JbrglmxbgProtestant HospitalAST [Catalytic activity/Vol]18 U/P15-36UfaikiquhProtestant HospitalBilirubin [Mass/Vol]0.5 mg/dL0.2-1.0Pro[facility] HospitalCalcium [Mass/Vol]8.9 mg/dL8.5-10.1FFulton County Health CenterChloride [Moles/Vol]104 mmol/L 98-107Protestant HospitalCholesterol [Mass/Vol]123 mg/dL<=200 [facility] HospitalCholesterol in HDL [Mass/Vol]45 mg/dL40-60 Protestant HospitalComment on above:> or =60 mg/dl - LOW CARDIOVASCULAR RISK<40 mg/dl - HIGH CARDIOVASCULAR RISKCO2 [Moles/Vol]30.2 mmol/L21.0-32.0Pro[facility] HospitalCobalamin (Vitamin B12) [Mass/Vol]1089 pg/xO304-7895PrqgtftspProtestant HospitalComment on above: Performed at: - [facility] [id number] Director: Carlos Witt PhD, Phone: [phone] [Mass/Vol]1.45 mg/dLHigh0.55-1.02Pro[facility] HospitalFerritin [Mass/Vol]176.0 ng/mL8.0-252.0Pro[facility]ant HospitalFree T4 [Mass/Vol]0.97 ng/dL 0.76-1.46Protestant HospitalGFR/1.73 sq M.predicted MDRD (S/P/Bld) [Vol rate/Area]42 mL/min/{1.73_m2}Low>=60 mL/min/1.73m 2FFulton County Health CenterGlucose [Mass/Vol]94 mg/uD62-064WmzkmjhfkProtestant Hospital Iron [Mass/Vol]35.0 ug/dLLow50.0-170.0Pro[facility] HospitalPotassium [Moles/Vol]4.3 mmol/L3.5-5.1FFulton County Health CenterProtein [Mass/Vol] 0.2 g/dLAbnormalNot ObservedProtestant HospitalProtein [Mass/Vol] 6.5 g/dL6.4-8.2FFirelands Regional Medical Centerodium [Moles/Vol]142 mmol/L 136-145Protestant HospitalTriglyceride [Mass/Vol]89 mg/dL<=150 [facility] HospitalTSH Qn5.101 m[IU]/LHigh0.358-3.740Pro[facility] HospitalUrea nitrogen [Mass/Vol]22.0 mg/dLHigh7.0-18.0Pro[facility] HospitalUrea nitrogen/Creatinine [Mass ratio]15.2 mg/mgProtestant HospitalLaboratory - Hematology and Cell countsOrdered By: Nathan Hathaway on 97-44-4488Elwtmfdh granulocytes/100 WBC (Bld)0.4 %0.0-0.5 Protestant HospitalLeukocytes [#/volume] corrected for nucleated erythrocytes in Blood by Automated counOrdered By: Nathan Hathaway on 06-23-2025 WBC corrected for nucl RBC Auto (Bld) [#/Vol]5.6 10 3/uL4.0-11.0Pro[facility] HospitalLymphocytes Auto (Bld) [#/Vol]Ordered By: Nathan Hathaway on 92-12-3967Cizgdzlevve (Bld) [#/Vol]0.8 10 3/uLLow1.2-3.8Pro[facility] HospitalLymphocytes/100 WBC Auto (Bld)Ordered By: Nathan Hathaway on 79-82-5837Lrbtmycyfnr/100 WBC (Bld)14.4 %Low20.5-60.0[facility] HospitalH Auto (RBC) [Entitic mass]Ordered By: Nathan Hathaway on 00-02-5017UXY (RBC) [Entitic mass]29.0 pg26.7-34.0Pro[facility] HospitalMCHC Auto (RBC) [Mass/Vol]Ordered By: Nathan Hathaway on 56-97-8347OXJF (RBC) [Mass/Vol]32.9 g/dL29.9-35.2FFulton County Health CenterMCV Auto (RBC) [Entitic vol] Ordered By: Nathan Hathaway on 78-22-1996SMH (RBC) [Entitic vol]88.2 fL81.0-99.0 Protestant HospitalMonocytes Auto (Bld) [#/Vol]Ordered By: Nathan Hathaway on 47-05-9041Jaqucfjoz (Bld) [#/Vol]0.5 10 3/uL0.3-0.8Pro[facility] HospitalMonocytes/100 WBC Auto (Bld)Ordered By: Nathan Hathaway on 09-32-8229Nyutvioiu/100 WBC (Bld)8.7 %1.7-12.0[facility] Neutrophils Auto (Bld) [#/Vol]Ordered By: Nathan Hathaway on 70-25-0366Lzzxfulaemg (Bld) [#/Vol]4.1 10 3/uL1.4-6.5FFulton County Health CenterNeutrophils/100 WBC Auto (Bld)Ordered By: Nathan Hathaway on 62-81-0725Tgyacoffvoe/100 WBC (Bld) 73.1 %43.0-75.0Protest[facility] HospitalNo Panel InformationOrdered By: Nathan Hathaway on 43-97-9852Ohcfqpzaeye # (Auto)0.2 10 3/uL0.0-0.7FFulton County Health CenterFolate17.90 ng/mL8.60-58.90Protestant HospitalImmature Granulocyte # (Auto)0.02 10 3/uL0.00-0.03Pro[facility] HospitalProtein Electrophoresis NoteComment.Protestant HospitalComment on above:Protein electrophoresis scan will follow via computer,mail, or bundle collector delivery.Platelet mean volume Auto (Bld) [Entitic vol] Ordered By: Nathan Hathaway on 43-83-8418Nholegky mean volume (Bld) [Entitic vol] 10.2 fL9.5-13.5FFulton County Health CenterPlatelets Auto (Bld) [#/Vol] Ordered By: Nathan Hathaway on 96-07-9739Efhbxoewp (Bld) [#/Vol]270 10 3/nB288-266 [facility] HospitalProtein [Mass/volume] in Serum or PlasmaOrdered By: Nathan Hathaway on 34-51-7595Rjvtzxt [Mass/Vol]5.7 g/dLAbnormal6.0-8.5 Protestant HospitalRBC Auto (Bld) [#/Vol]Ordered By: Nathan Hathaway on 80-95-2287WTU (Bld) [#/Vol]3.21 10 6/uLLow4.20-5.40Community Regional Medical Centererum globulin measurement (mass/volume)Ordered By: Nathan Hathaway on 79-84-8063Ifyqwbqr (S) [Mass/Vol]2.5 g/dL2.2-3.9[facility] Centererum or plasma albumin/globulin mass ratioOrdered By: Nathan Hathaway on 62-98-9586Acrtxrs/Globulin [Mass ratio]1.0 {ratio}[facility] HospitalAlbumin/Globulin [Mass ratio]1.3 {ratio}0.7-1.7FFirelands Regional Medical Centererum or plasma alpha 1 globulin measurement by electrophoresis (mass/volume)Ordered By: Nathan Hathaway on 86-39-2253Epdir 1 globulin Elph [Mass/Vol]0.3 g/dL0.0-0.4FFirelands Regional Medical Centererum or plasma alpha 2 globulin measurement by electrophoresis (mass/volume)Ordered By: Nathan Hathaawy 05-28-0923Ploca 2 globulin Elph [Mass/Vol]1.0 g/dL0.4-1.0[facility] Centererum or plasma anion gap determinationOrdered By: Nathan Hathaway on 55-42-1009Zzyvy gap [Moles/Vol]12.1 mmol/LFFulton County Health Center Serum or plasma beta globulin measurement by electrophoresis (mass/volume) Ordered By: Nathan Hathaway on 63-03-4290Xpso globulin Elph [Mass/Vol]0.7 g/dL 0.7-1.3FFirelands Regional Medical Centererum or plasma gamma globulin measurement by electrophoresis (mass/volume)Ordered By: Nathan Hathaway on 02-49-4305Tavac globulin Elph [Mass/Vol]0.5 g/dL0.4-1.8[facility] Centererum or plasma immunoelectrophoresis interpretationOrdered By: Nathan Hathaway on 33-65-8319Wiwrggbamphvkp IEP [Interp]CommentAbnormal.Protestant HospitalComment on above:Immunofixation shows IgM monoclonal protein with kappalight chain specificity.Serum or plasma total cholesterol/high density lipoprotein (HDL) cholesterol mass ratOrdered By: Nathan Hathaway on 13-53-4339Loijgtbwztx.total/Cholesterol in HDL [Mass ratio]2.7 {ratio}Protest[facility] HospitalComment on above:3.3 - 4.4 LOW RISK4.4 - 7.1 AVERAGE RISK7.1 - 11.0 MODERATE RISK>11.0 HIGH RISKEstimated glomerular filtration rate (GFR) non- Americanon 79-23-9074ERZ/1.73 sq M.predicted among non-blacks MDRD (S/P/Bld) [Vol rate/Area]Estimated glomerular filtration rate (GFR) non- AmericanLow>=60 mL/min/1.73m [address] [place], [place] [address]GFR/1.73 sq M.predicted among non-blacks MDRD (S/P/Bld) [Vol rate/Area]31 mL/min/{1.73_m2}Low>=60 mL/min/1.73m [address] [place] [address] Laboratory - Chemistry and Chemistry - challengeon 49-42-8613Kixcesb [Mass/Vol] 8.9 mg/dL8.5-10.1FFulton County Health CenterChloride [Moles/Vol]105 mmol/L 98-107Firelands Regional Medical CenterCO2 [Moles/Vol]30.7 mmol/L21.0-32.0 [facility] HospitalCreatinine [Mass/Vol]1.60 mg/dLHigh0.55-1.02 [facility] HospitalGFR/1.73 sq M.predicted MDRD (S/P/Bld) [Vol rate/Area]37 mL/min/{1.73_m2}Low>=60 mL/min/1.73m 2FFulton County Health CenterGlucose [Mass/Vol]112 mg/zWMakr37-403BqzscnjjrProtestant Hospital Potassium [Moles/Vol]4.4 mmol/L3.5-5.1FFirelands Regional Medical Centerodium [Moles/Vol]145 mmol/O924-215NcovonyelProtestant HospitalTSH Qn3.657 m[IU]/L 0.358-3.740Protestant HospitalUrea nitrogen [Mass/Vol]33.0 mg/dL High7.0-18.0Pro[facility] HospitalUrea nitrogen/Creatinine [Mass ratio]20.6 mg/mgCommunity Regional Medical Centererum or plasma anion gap determinationon 73-25-0477Bkddq gap [Moles/Vol]Serum or plasma anion gap determinationProtestant HospitalAnion gap [Moles/Vol]13.7 mmol/L [facility] HospitalTRANSTHORACIC ECHO (TTE) COMPLETEon 03-17-2025 TRANSTHORACIC ECHO (TTE) [address], [address] [place] [address] TRANSTHORACIC ECHOCARDIOGRAM REPORT Patient Name: LASHAUNGonzález Doherty Physician: [id number] Bryce Guy MD, [facility] Study Date: 03/17/2025 Ordering Provider: [id number] HOLDEN ROSADO MRN/PID: [id number] Fellow: Nurse: Date of /Age: 11 1940 Finishing Pan Operator: Nicolasa taylor RDCS, RVT Gender Assigned at F Additional Staff: : Height: 165.10 cm Admit Date: Weight: 90.72 kg Admission Status: BSA / BMI: 1.98 m2 / 33.28 Department Location: [place] kg/m2 [facility] Blood Pressure: 120 /64 [...] VALVE: Normal Ranges: RV (more content not included)...[facility]imaAcanthocytes [Presence] in Blood by Light microscopyOrdered By: Jorge L Cruz on 40-19-4985Fiyeggxoonvt LM Ql (Bld)Acanthocytes [Presence] in Blood by Light microscopyProtestant HospitalAlanine aminotransferase [Enzymatic activity/volume] in Serum or PlasmaOrdered By: Jorge L Cruz on 90-10-2700JUT [Catalytic activity/Vol]Alanine aminotransferase [Enzymatic activity/volume] in Serum or Plasma7-52Protestant HospitalAlbumin [Mass/volume] in Serum or Plasma by Bromocresol green (BCG) dye binding metho Ordered By: Jorge L Cruz on 67-87-5118Rjzqgin BCG dye [Mass/Vol]Albumin [Mass/volume] in Serum or Plasma by Bromocresol green (BCG) dye binding metho 3.5-5.7FFulton County Health CenterAlkaline phosphatase [Enzymatic activity/volume] in Serum or PlasmaOrdered By: Jorge L Cruz on 02-12-2025 ALP [Catalytic activity/Vol]Alkaline phosphatase [Enzymatic activity/volume] in Serum or Ytehxg27-392VpcjcbktoProtestant HospitalAnisocytosis LM Ql (Bld) Ordered By: Jorge L Cruz on 34-89-9763Bmaygpykbnkz Ql (Bld)Anisocytosis [Presence] in Blood by Light microscopyProtestant Hospital Aspartate aminotransferase [Enzymatic activity/volume] in Serum or PlasmaOrdered By: Jorge L Cruz on 52-79-4366CJY [Catalytic activity/Vol]Aspartate aminotransferase [Enzymatic activity/volume] in Serum or Ofzibs48-56ShutgmqtsProtestant HospitalB-Type Natriuretic Peptideon 95-47-7464Skdqklsqcfg peptide B (Bld) [Mass/Vol]246.0 pg/mLHigh5-100The [facility] Comment on above:Result Comment: PERFORMED BY: [facility] [address] [facility] [address] PATHOLOGIST CAR CUSTOMIZER RAMEZ MONTES M.D.Performed By: #### SCAN CBC, CK, HS TROP, BNP, PT, PTT ####[facility] Basophils Auto (Bld) [#/Vol]Ordered By: Jorge L Cruz on 39-36-9173Xbkoidlkj (Bld) [#/Vol]Automated basophil count0.0-0.2FFulton County Health Center Basophils/100 WBC Auto (Bld)Ordered By: Jorge L Cruz on 02-12-2025 Basophils/100 WBC (Bld)Automated basophil %.[facility] Bilirubin.total [Mass/volume] in Serum or PlasmaOrdered By: Jorge L Cruz on 17-35-1032Xatdwwwdg [Mass/Vol]Bilirubin.total [Mass/volume] in Serum or Plasma 0.3-1.0Pro[facility] HospitalCalcium [Mass/volume] in Serum or Plasma Ordered By: Jorge L Cruz on 98-35-0296Iangpbj [Mass/Vol]Calcium [Mass/volume] in Serum or Plasma8.6-10.3FFulton County Health CenterCarbon dioxide, total [Moles/volume] in Serum or PlasmaOrdered By: Jorge L Cruz on 87-71-4625RI3 [Moles/Vol]Carbon dioxide, total [Moles/volume] in Serum or Faxxrt13.0-31.0Pro[facility] HospitalChloride [Moles/volume] in Serum or PlasmaOrdered By: Jorge L Cruz on 89-47-9803Libqbwqs [Moles/Vol] Chloride [Moles/volume] in Serum or Ciqagv58-117CjgwmowirProtestant HospitalComprehensive Metabolic Panelon 40-99-7775Qfwfpyb [Mass/Vol]3.8 g/dLNormal 3.5-5.7The [facility] Physician GroupComment on above:Performed By: #### TSH3, CMP, MG #### [facility] [address] [place] [address] USAAlbumin/Globulin [Mass ratio]1.6 {ratio}NormalThe [facility] Physician GroupComment on above:Performed By: #### TSH3, CMP, MG #### [facility] [address] [place] [address] USAALP [Catalytic activity/Vol]43 U/ZWfhyql90-749Klv [facility] Physician GroupComment on above:Performed By: #### TSH3, CMP, MG #### [facility] [address] [place] [address] USAALT [Catalytic activity/Vol]14 U/LNormal7-52The [facility] Physician GroupComment on above:Performed By: #### TSH3, CMP, MG #### [facility] [address] [place] [id number] USAAnion gap [Moles/Vol]11.4 mmol/LNormal6.0-15.0The [facility] Physician GroupComment on above:Performed By: #### TSH3, CMP, MG #### [facility] [address] [place] [id number] USAAST [Catalytic activity/Vol]19 U/PBbywgb80-59Wfn [facility] Physician GroupComment on above:Performed By: #### TSH3, CMP, MG #### [facility] [address] [place] [id number] USABilirubin [Mass/Vol]0.4 mg/dLNormal0.3-1.0The [facility] Physician GroupComment on above:Performed By: #### TSH3, CMP, MG #### [facility] [address] [place] [address] USACalcium [Mass/Vol]9.1 mg/dLNormal8.6-10.3The [facility] Physician GroupComment on above:Performed By: #### TSH3, CMP, MG #### [facility] [address] [place] [address] USAChloride [Moles/Vol]107 mmol/GXalmao45-024Jpm [facility] Physician GroupComment on above:Performed By: #### TSH3, CMP, MG #### [facility] [address] [place] [address] USACO2 [Moles/Vol]27.7 mmol/HXkcequ04.0-31.0The [facility] Physician GroupComment on above:Performed By: #### TSH3, CMP, MG #### [facility] [address] [place] [address] USACreatinine [Mass/Vol]1.28 mg/dLHigh0.60-1.20The [facility] Physician GroupComment on above:Performed By: #### TSH3, CMP, MG #### [facility] [address] [place] [address] USACreatinine Clr Calc Stkgfhcq62.75NoOur Community Hospital Physician GroupComment on above:Performed By: #### TSH3, CMP, MG #### [facility] [address] [place] [address] USAEstimated GFR41.827 mL/MinNoOur Community Hospital Physician GroupComment on above:Performed By: #### TSH3, CMP, MG #### [facility] [address] [place] [address] USAGlobulin (S) [Mass/Vol]2.4 g/dLNoOur Community Hospital Physician GroupComment on above:Performed By: #### TSH3, CMP, MG #### [facility] [address] [place] [address] USAGlucose [Mass/Vol]102 mg/qISxny32-887Pnf [facility] Physician GroupComment on above:Result Comment: Random Glucose Reference Range is dependent on time and content of last meal. Glucose of more than 200 mg/dL in a nonstressed, ambulatory subject supports the diagnosis of Diabetes Mellitus. ADA recommended reference rangePerformed By: #### TSH3, CMP, MG #### [facility] [address] [place] [address] USAPotassium [Moles/Vol]4.1 mmol/LNormal3.5-5.1The [facility] Physician GroupComment on above:Performed By: #### TSH3, CMP, MG #### [facility] [address] [place] [address] USAProtein [Mass/Vol]6.2 g/dLLow6.4-8.9The [facility] Physician GroupComment on above:Performed By: #### TSH3, CMP, MG #### [facility] [address] [place] [address] USASodium [Moles/Vol]142 mmol/BFcerfp480-598Uqp [facility] Physician GroupComment on above:Performed By: #### TSH3, CMP, MG #### [facility] [address] [place] [address] USAUrea nitrogen [Mass/Vol]28 mg/dLHigh7-25The [facility] Physician GroupComment on above:Performed By: #### TSH3, CMP, MG #### [facility] [address] [place] [address] USACreatine Kinaseon 95-94-1234ND [Catalytic activity/Vol]35 U/SFdncvv99-604Yjk [facility] Physician GroupComment on above:Performed By: #### SCAN CBC, CK, HS TROP, BNP, PT, PTT ####[facility] [address] [place] [id number] USACreatine kinase [Enzymatic activity/volume] in Serum or PlasmaOrdered By: Jorge L Cruz on 59-03-2722UG [Catalytic activity/Vol] Creatine kinase [Enzymatic activity/volume] in Serum or Ugjbot08-253ZmcpxmpgwProtestant HospitalCreatinine [Mass/volume] in Serum or PlasmaOrdered By: Jorge L Cruz on 38-19-8752Pdpdrflqzh [Mass/Vol]Creatinine [Mass/volume] in Serum or PlasmaHigh0.60-1.20Protestant HospitalECG 12 lead ECGon 29-09-4469ZUX 12 lead [facility]GC[facility] [place] [address] Electrocardiograph Report Signed Patient: Lashaun Joaquin MR#: [id number] [birth year] : 1940 Acct:[id number] Age/Sex: 84 / F ADM Date: 02/12/25 Loc: ER Room: Type: [facility] ER Attending Dr: Ordering Provider: [...] rhythm Confirmed by Jorge L CRUZ DO ([id number]) on 02/12/2025 10:52:00 AM Referred By: Electronically Signed By: Jorge L CRUZ DO Transcribed By: MUS Signed By Jorge L Cruz DO 0 02/12/[address] [place] [address] Physician GroupEosinophils Auto (Bld) [#/Vol] Ordered By: Jorge L Cruz on 79-08-1029Ozabhbpelom (Bld) [#/Vol]Automated eosinophil count0.0-0.45Protestant HospitalEosinophils/100 WBC Auto (Bld)Ordered By: Jorge L Cruz on 45-14-0975Qyaokcwduyu/100 WBC (Bld) Automated eosinophil %.Protestant HospitalErythrocyte distribution width Auto (RBC) [Ratio]Ordered By: Jorge L Cruz on 14-87-6123Waaufirykkb distribution width (RBC) [Ratio]Erythrocyte distribution width [Ratio] by Automated count11.9-15.3FFulton County Health CenterErythrocyte morphology finding [Identifier] in BloodOrdered By: Jorge L Cruz on 09-18-0969SYX morphology finding Nom (Bld)RBC morphologyProtestant Hospital Globulin Calc (S) [Mass/Vol]Ordered By: Jorge L Cruz on 94-78-4677Jdjaprdz (S) [Mass/Vol]Serum globulin measurement by calculation (mass/volume)Protestant HospitalGlucose [Mass/volume] in Serum or PlasmaOrdered By: Jorge L Cruz on 00-23-1159Lvjezwc [Mass/Vol]Glucose [Mass/volume] in Serum or BkuervIhzv30-300JofsohwhrProtestant HospitalComment on above:ADA recommended reference rangeRandom Glucose Reference Range is dependent on time and content of last meal. Glucose of more than 200 mg/dL in a nonstressed, ambulatory subject supports the diagnosisof Diabetes Mellitus.Hematocrit Auto (Bld) [Volume fraction]Ordered By: Jorge L Cruz on 77-61-0331Jkaewthexz (Bld) [Volume fraction]Hematocrit [Volume Fraction] of Blood by Automated count Low34.0-46.4FFulton County Health CenterHemoglobin [Mass/volume] in Blood Ordered By: Jorge L Cruz on 08-97-3086Rkbqqjsveh (Bld) [Mass/Vol]Hemoglobin [Mass/volume] in NrgbfMaj20.8-15.4FFulton County Health CenterINR in Platelet poor plasma by Coagulation assayOrdered By: Jorge L Cruz on 52-24-7483BLD Coag (PPP) [Relative time]INR in Platelet poor plasma by Coagulation assayProtestant HospitalComment on above:INR Therapeutic Range A) Pre- [...] Automated counOrdered By: Jorge L Cruz on 05-74-1362FXP corrected for nucl RBC Auto (Bld) [#/Vol]Leukocytes [#/volume] corrected for nucleated erythrocytes in Blood by Automated coun3.8-11.6FFulton County Health CenterLymphocytes Auto (Bld) [#/Vol]Ordered By: Jorge L Cruz on 06-16-8615Vsebvtjafgw (Bld) [#/Vol]Lymphocytes [#/volume] in Blood by Automated countLow1.00-4.8Protestant HospitalLymphocytes/100 WBC Auto (Bld)Ordered By: Jorge L Cruz on 92-34-3635Rkbroxpbxxu/100 WBC (Bld)Lymphocytes/100 leukocytes in Blood by Automated count.[facility] HospitalH Auto (RBC) [Entitic mass]Ordered By: Jorge L Cruz on 42-40-5540QXK (RBC) [Entitic mass]MCH [Entitic mass] by Automated count24.7-34.3FFulton County Health CenterMCHC Auto (RBC) [Mass/Vol]Ordered By: Jorge L Cruz on 25-89-9391HTVL (RBC) [Mass/Vol]MCHC [Mass/volume] by Automated count32.0-35.0[facility] HospitalV Auto (RBC) [Entitic vol]Ordered By: Jorge L Cruz on 20-80-6380UGX (RBC) [Entitic vol]MCV [Entitic volume] by Automated iemga91-931 Protestant HospitalMagnesiumon 56-56-7920Gvxonopxr [Mass/Vol]2.3 mg/dLNormal1.9-2.7The [facility] Physician GroupComment on above:Performed By: #### TSH3, CMP, MG #### [place] [address] USAMagnesium [Mass/volume] in Serum or PlasmaOrdered By: Jorge L Cruz on 96-88-5289Ljbwejlfm [Mass/Vol]Magnesium [Mass/volume] in Serum or Plasma1.9-2.7FFulton County Health CenterMicrocytes LM Ql (Bld) Ordered By: Jorge L Cruz on 90-40-8349Sqqyajxfnc Ql (Bld)Microcytes [Presence] in Blood by Light microscopyProtestant HospitalMonocyte distribution width [Entitic volume] in Blood by AutomatedOrdered By: Jorge L Cruz on 31-86-9037Ignfgoaf distribution width Auto (Bld) [Entitic vol] Monocyte distribution width [Entitic volume] in Blood by AutomatedHigh0.00-20.00 Protestant HospitalComment on above:For adults in ED, MDW > 20.0 may be associated with a higher risk of sepsis during the first 12 hrs of hospital admissionMonocytes Auto (Bld) [#/Vol]Ordered By: Jorge L Cruz on 30-74-4730Brczmmxig (Bld) [#/Vol]Automated blood monocyte count0.0-0.8Protestant HospitalMonocytes/100 WBC Auto (Bld)Ordered By: Jorge L Cruz on 20-73-4266Sonocvoye/100 WBC (Bld)Automated monocyte %.Protestant HospitalNatriuretic peptide B [Mass/Vol]Ordered By: Jorge L Cruz on 56-03-2234Qpvchcjjwom peptide B (Bld) [Mass/Vol]BNP ser/plasHigh5-100Protestant HospitalNeutrophils Auto (Bld) [#/Vol]Ordered By: Jorge L Cruz on 53-13-1446Prgsldshyag (Bld) [#/Vol]Neutrophils [#/volume] in Blood by Automated count1.8-7.7FFulton County Health CenterNeutrophils/100 WBC Auto (Bld)Ordered By: Jorge L Cruz on 63-18-0711Ztkvkorjzdo/100 WBC (Bld) Automated neutrophil %.Protestant HospitalNo Panel Information Ordered By: Jorge L Cruz on 70-42-4742Ujrezcsyb GFR (CKD-EPI)41.827 mL/Min Protestant HospitalPharmacy Creatinine Clearance (Chem37.75 Protestant HospitalNucleated erythrocytes [Presence] in Blood by Automated countOrdered By: Jorge L Cruz on 59-54-4031Ayzikaurn RBC Auto Ql (Bld)Nucleated erythrocytes [Presence] in Blood by Automated count0-0.5FFulton County Health CenterOvalocytes [Presence] in Blood by Light microscopy Ordered By: Jorge L Cruz on 83-63-4235Dlmituxdkw LM Ql (Bld)Ovalocyte detectionProtestant HospitalPartial Thromboplastin Timeon 95-30-4402tGXV Coag (Bld) [Time]29.8 gRsvsrx33.1-36.5The [facility] Physician GroupComment on above:Result Comment: A hematocrit value greater than 55% may lead to inaccurate results in coagulation testing. Patients having hematocrit values >55% require a special collection tube for coagulation studies. Please contact the laboratory at [phone] for redraw instructions. PERFORMED BY: [facility] [address] [place] [id number] PATHOLOGIST CAR CUSTOMIZER RAMEZ MONTES M.D.Performed By: #### SCAN CBC, CK, HS TROP, BNP, PT, PTT ####[facility] [address] [place] [id number] [facility] Platelet adequacy [Presence] in Blood by Light microscopyOrdered By: Jorge L Cruz on 27-18-3338Aauvomviw LM Ql (Bld)Platelet adequacy [Presence] in Blood by Light microscopyNormalProtestant HospitalPlatelet mean volume Auto (Bld) [Entitic vol]Ordered By: Jorge L Cruz on 20-03-2782Yovlfroo mean volume (Bld) [Entitic vol]Platelet mean volume [Entitic volume] in Blood by Automated count6.3-10.7FFulton County Health CenterPlatelet morphology finding [Identifier] in BloodOrdered By: Jorge L Cruz on 56-40-7323Gvtnwarv morphology finding Nom (Bld)Platelet morphology finding [Identifier] in Blood NormalProtestant HospitalPlatelets Auto (Bld) [#/Vol]Ordered By: Jorge L Cruz on 64-13-1906Tpmkmztex (Bld) [#/Vol]Platelets [#/volume] in Blood by Automated shemc323-697UvdzwclghProtestant HospitalPoikilocytosis [Presence] in Blood by Light microscopyOrdered By: Jorge L Cruz on 73-28-1645Nfieygdgbtuvgs LM Ql (Bld)Poikilocytosis [Presence] in Blood by Light microscopyProtestant HospitalPotassium [Moles/volume] in Serum or PlasmaOrdered By: Jorge L Cruz on 36-80-2980Nxovbwbmc [Moles/Vol]Potassium [Moles/volume] in Serum or Plasma3.5-5.1FFulton County Health CenterProtein [Mass/volume] in Serum or PlasmaOrdered By: Jorge L Cruz on 02-12-2025 Protein [Mass/Vol]Protein [Mass/volume] in Serum or PlasmaLow6.4-8.9Protestant HospitalProthrombin Time INRon 79-34-9274IUJ Coag (PPP) [Relative time]1.0 {INR}NormalThe [facility] Physician GroupComment on above:Result Comment: INR Therapeutic Range A) [...] CBC, CK, HS TROP, BNP, PT, PTT ####[facility] [place] [id number] USAPT Coag (PPP) [Time]11.3 sNormal9.0-12.9[facility] Physician [facility] General HospitalComment on above:Result Comment: A hematocrit value greater than 55% may lead to inaccurate results in coagulation testing. Patients having hematocrit values >55% require a special collection tube for coagulation studies. Please contact the laboratory at [phone] for redraw instructions.Performed By: #### SCAN CBC, CK, HS TROP, BNP, PT, PTT ####[place] [id number] [place] [id number] [facility] Prothrombin time (PT)Ordered By: Jorge L Cruz on 73-30-8846RF Coag (PPP) [Time]Prothrombin time (PT)9.0-12.9Protestant HospitalComment on above:A hematocrit value greater than 55% may lead to inaccurate results in coagulation testing. Patientshaving hematocrit values >55% require a special collection tube for coagulation studies. Please contact the laboratory at [phone] for redraw instructions.RBC Auto (Bld) [#/Vol]Ordered By: Jorge L Cruz on 39-43-3812JCV (Bld) [#/Vol]Erythrocytes [#/volume] in Blood by Automated countLow3.60-5.00Community Regional Medical Centercan and CBCon 93-25-9531EdghjguksgiiIoahsvTvrjduXlbAurora East HospitalComment on above: Performed By: #### SCAN CBC, CK, HS TROP, BNP, PT, PTT ####[place] [address] [place] [id number] USAAnisocytosis Ql (Bld)Moderate NormalThe [facility] Hospital Physician GroupComment on above:Performed By: #### SCAN CBC, CK, HS TROP, BNP, PT, PTT ####[place] [address] USABasophils (Bld) [#/Vol]0.0 10*3/uLNormal0.0-0.2The [facility] Physician GroupComment on above:Performed By: #### SCAN CBC, CK, HS TROP, BNP, PT, PTT ####[place] [address] USABasophils/100 WBC (Bld)0.6 %Normal.The [facility] Physician Group Comment on above:Performed By: #### SCAN CBC, CK, HS TROP, BNP, PT, PTT ####[address] Eosinophils (Bld) [#/Vol]0.1 10*3/uLNormal0.0-0.45The [facility] Physician Group Comment on above:Performed By: #### SCAN CBC, CK, HS TROP, BNP, PT, PTT ####[address] Eosinophils/100 WBC (Bld)1.5 %Normal.The [facility] Physician GroupComment on above:Performed By: #### SCAN CBC, CK, HS TROP, BNP, PT, PTT ####[address] StreetErythrocyte distribution width (RBC) [Ratio]13.8 %Ugfuzr71.9-15.3The [facility] Physician GroupComment on above:Performed By: #### SCAN CBC, CK, HS TROP, BNP, PT, PTT ####[address] Hematocrit (Bld) [Volume fraction]29.7 %Low34.0-46.4The [facility] Physician GroupComment on above:Performed By: #### SCAN CBC, CK, HS TROP, BNP, PT, PTT ####[address] Hemoglobin (Bld) [Mass/Vol]10.2 g/dLLow11.8-15.4The [facility] Comment on above:Performed By: #### SCAN CBC, CK, HS TROP, BNP, PT, PTT ####[address] Lymphocytes (Bld) [#/Vol]0.9 10*3/uLLow1.00-4.8The [facility]ician [facility] Comment on above:Performed By: #### SCAN CBC, CK, HS TROP, BNP, PT, PTT ####[address] Lymphocytes/100 WBC (Bld)13.6 %Normal.The [facility] Physician GroupComment on above:Performed By: #### SCAN CBC, CK, HS TROP, BNP, PT, PTT ####[address]H (RBC) [Entitic mass]28.9 duNkjavu41.7-34.3The [facility] Physician GroupComment on above: Performed By: #### SCAN CBC, CK, HS TROP, BNP, PT, PTT ####[address]V (RBC) [Entitic vol]83.9 fL Jqkqgm53-329Cdf [facility] Physician GroupComment on above:Performed By: #### SCAN CBC, CK, HS TROP, BNP, PT, PTT ####[place] [address] USAMean Corpuscular HGB Conc34.5 g/sOEwurmj50.0-35.0The [facility] Physician GroupComment on above:Performed By: #### SCAN CBC, CK, HS TROP, BNP, PT, PTT ####[place] [address] USAMicrocytosisModerateNormalThe [facility] Physician GroupComment on above:Performed By: #### SCAN CBC, CK, HS TROP, BNP, PT, PTT ####[place] [address] USAMonocytes (Bld) [#/Vol]0.4 10*3/uLNormal0.0-0.8The [facility] Physician GroupComment on above: Performed By: #### SCAN CBC, CK, HS TROP, BNP, PT, PTT ####[place] [address] USAMonocytes/100 WBC (Bld)21.49 % High0.00-20.00The [facility] Physician GroupComment on above:Result Comment: For adults in ED, MDW > 20.0 may be associated with a higher risk of sepsis during the first 12 hrs of hospital admissionPerformed By: #### SCAN CBC, CK, HS TROP, BNP, PT, PTT ####[place] [address] USAMonocytes/100 WBC (Bld)6.6 %Normal.The [facility] Physician GroupComment on above:Performed By: #### SCAN CBC, CK, HS TROP, BNP, PT, PTT ####[place] [address] [place] Neutrophils (Bld) [#/Vol]4.9 10*3/uLNormal1.8-7.7The [facility]ician Group Comment on above:Performed By: #### SCAN CBC, CK, HS TROP, BNP, PT, PTT ####[place] [id number] [place] Neutrophils/100 WBC (Bld)77.7 %Normal.The [facility] Physician GroupComment on above:Performed By: #### SCAN CBC, CK, HS TROP, BNP, PT, PTT ####[place] [id number] USANRBC%0.1 /100{WBC} Normal0-0.5The [facility] Physician GroupComment on above:Performed By: #### SCAN CBC, CK, HS TROP, BNP, PT, PTT ####[place] [phone] USAOvalocytesSlightNoOur Community Hospital Physician Group Comment on above:Performed By: #### SCAN CBC, CK, HS TROP, BNP, PT, PTT ####[address] [address] USAPlatelet EstimateNormalNormalNormAdventHealth Deltona ER Physician GroupComment on above: Performed By: #### SCAN CBC, CK, HS TROP, BNP, PT, PTT ####[address] [address] USAPlatelet mean volume (Bld) [Entitic vol]7.7 fLNormal6.3-10.7The [facility] Physician GroupComment on above: Performed By: #### SCAN CBC, CK, HS TROP, BNP, PT, PTT ####[address] [address] USAPlatelet MorphologyNormalNormal NormalThe [facility] Physician GroupComment on above:Result Comment: PERFORMED BY: [facility] [address] [place] [address] PATHOLOGIST CAR CUSTOMIZER RAMEZ MONTES M.D.Performed By: #### SCAN CBC, CK, HS TROP, BNP, PT, PTT ####[address] [address] [place] Platelets (Bld) [#/Vol]383 10*3/lFVbcuhb566-752Uav [facility] Physician [facility] Comment on above:Performed By: #### SCAN CBC, CK, HS TROP, BNP, PT, PTT ####[address] [address] [place] PoikilocytosisModerateNormAdventHealth Deltona ER Physician GroupComment on above: Performed By: #### SCAN CBC, CK, HS TROP, BNP, PT, PTT ####[address] [address] USARBC (Bld) [#/Vol]3.54 10*6/uL Low3.60-5.00The [facility] Physician GroupComment on above:Performed By: #### SCAN CBC, CK, HS TROP, BNP, PT, PTT ####[facility] [place] [address] USAWBC (Bld) [#/Vol]6.3 10*3/uLNormal3.8-11.6The [facility] Physician GroupComment on above:Performed By: #### SCAN CBC, CK, HS TROP, BNP, PT, PTT ####[facility] [address] USAWBC (Bld) [#/Vol]7.6 10*3/uLNormal3.8-11.6The [facility] Physician GroupComment on above:Performed By: #### SCAN CBC, CK, HS TROP, BNP, PT, PTT ####[facility] [address] USASerum or plasma albumin/globulin mass ratioOrdered By: Jorge L Cruz on 02-12-2025 Albumin/Globulin [Mass ratio]Serum or plasma albumin/globulin mass ratio [facility] Medical Centererum or plasma anion gap determinationOrdered By: Jorge L Cruz on 41-32-3910Jibrq gap [Moles/Vol]Serum or plasma anion gap determination6.0-15.0[facility] Regional Medical Centerodium [Moles/volume] in Serum or PlasmaOrdered By: Jorge L Cruz on 09-08-4246Knqjmg [Moles/Vol] Sodium [Moles/volume] in Serum or Pulyuf665-274CzgxytuipProtestant Hospital Thyroid Stimulating Hormoneon 19-46-7610GKL Qn6.48 m[IU]/LHigh0.45-5.33The [facility] Physician GroupComment on above:Result Comment: PERFORMED BY: [facility] [address] [place] [address] PATHOLOGIST CAR CUSTOMIZER RAMEZ MONTES M.D.Performed By: #### TSH3, CMP, MG #### [facility] [address] [place] [address] USAThyrotropin [Units/volume] in Serum or PlasmaOrdered By: Jorge L Cruz on 94-75-9422HWA QnThyrotropin [Units/volume] in Serum or PlasmaHigh0.45-5.33Protestant HospitalTroponin I High Sensitivity on 41-48-4918Orodwvdj I High Evavvjtrmmk81Ajbwmf4-83Umi [facility] Physician GroupComment on above:Result Comment: The Troponin units of report have been changed to meet the Chest Pain Accreditation requirement, element EC5.M1l2. Troponin units are changed from pg/ml to ng/L. Also, the decimal is removed and results are in whole numbers. PERFORMED BY: [place] [address] PATHOLOGIST CAR CUSTOMIZER RAMEZ MONTES M.D.Performed By: #### HS TROP ####[place] [address] [place] [address] USATroponin I High Vqiauoepaze94 Normal0-15The [facility] Physician GroupComment on above:Result Comment: The Troponin units of report have been changed to meet the Chest Pain Accreditation requirement, element EC5.M1l2. Troponin units are changed from pg/ml to ng/L. Also, the decimal is removed and results are in whole numbers. PERFORMED BY: [place] [address] PATHOLOGIST CAR CUSTOMIZER RAMEZ MONTES M.D.Performed By: #### SCAN CBC, CK, HS TROP, BNP, PT, PTT ####[place] [id number] [facility] Troponin I.cardiac [Mass/volume] in Serum or Plasma by Detection limit <= 0.01 ng/Ordered By: Jorge L Cruz on 82-81-2135Jjciheqx I.cardiac DL <= 0.01 ng/mL [Mass/Vol]Troponin I.cardiac [Mass/volume] in Serum or Plasma by Detection limit <= 0.01 ng/0-15Protestant HospitalComment on above:The Troponin units of report have been changed to meet the Chest Pain Accreditation requirement, element EC5.M1l2. Troponin units are changed from pg/ml to ng/L. Also, the decimal is removed and results are in whole numbers.Urea nitrogen [Mass/volume] in Serum or PlasmaOrdered By: Jorge L Cruz on 83-56-2063Gflr nitrogen [Mass/Vol]Urea nitrogen [Mass/volume] in Serum or Plasma Protestant HospitalWBC Auto (Bld) [#/Vol]Ordered By: Jorge L Cruz on 87-05-8533JVI (Bld) [#/Vol]Leukocytes [#/volume] in Blood by Automated count3.8-11.6FFulton County Health CenterXR chest 2V*on 94-67-6854OX chest 2V*[facility] [address] [place] [address] [place] [address] XRay Report Signed Patient: Lashaun Joaquin MR#: [id number] : 1940 Acct:[id number] Age/Sex: 84 / F ADM Date: 02/12/25 Loc: ER Room: Type: [facility] ER Attending Dr: Copies to: Jorge [...] Lyon Jr., D.OManuel02/12/2025 8:16 AM Dictation Location: [place] [address] Transcribed By: [facility] 02/12/25 0816 Dictated By: Epifanio Lyon Jr, DO 02/12/25 0816 Signed By: 02/12/25 0816[facility] Physician GroupaPTT in Platelet poor plasma by Coagulation assayOrdered By: Jorge L Cruz on 92-96-4749oFCR Coag (PPP) [Time]Activated partial thromboplastin time (aPTT) in platelet poor plasma by coagulation a25.1-36.5FFulton County Health CenterComment on above:A hematocrit value greater than 55% may lead to inaccurate results in coagulation testing. Patientshaving hematocrit values >55% require a special collection tube for coagulation studies. Please contact the laboratory at [phone] for redraw instructions.[place] Thyroid glandon 61-81[place] [address] Ultrasound Report Signed Patient: LASHAUN JOAQUIN MR#: [id number] : 1940 Acct:[id number] Age/Sex: 84 / F ADM Date: 02/10/25 Loc: US Attending Dr: Reyna Esparza M.D. Ordering Physician: Reyna Esparza M.D. Date of Service: 02/10/25 Procedure(s): US thyroid Accession Number(s): [id number] cc: Nathan Hathaway D.O.; Reyna Esparza M.D. The [address] [address] Patient Name: LASHAUN JOAQUIN MRN: [id number] date: 1940 Sex: F Assigned Patient Location: US Current Patient Location: US Accession/Order Number: [id number] Exam Date: 02/10/2025 11:24 Report Date: 02/10/2025 [...] Shelli Israel M.D.02/10/2025 11:33 AM Dictation Location: [place] [address] Electronically authenticated by: [id number] Y Date: 02/10/2025 11:33 Dictated By: Shelli Israel M.D. Signed By: 02/10/25 1136 DD/ 1133 TD/TT: Steam Shovel Engineer:TBHRadiology, Radiologist, - 02/10/2025 [place] [address] Ultrasound Report Signed Patient: LASHAUN JOAQUIN MR#: [id number] : 1940 Acct:[id number] Age/Sex: 84 / F ADM Date: 02/10/25 Loc: US Attending Dr: Reyna Esparza M.D. Ordering Physician: Reyna Esparza M.D. Date of Service: 02/10/25 Procedure(s): US thyroid Accession Number(s): [id number] cc: Nathan Hathaway D.O.; Reyna Esparza M.D. The [place] [id number] Patient Name: LASHAUN JOAQUIN MRN: [id number] date: 1940 Sex: F Assigned Patient Location: US Current Patient Location: US Accession/Order Number: [id number] Exam Date: 02/10/2025 11:24 Report Date: 02/10/2025 [...] Shelli Israel M.D.02/10/2025 11:33 AM Dictation Location: [place] [address] Electronically authenticated by: [id number] Y Date: 02/10/2025 11:33 Dictated By: Shelli Israel M.D. Signed By: 02/10/25 1136 DD/ 1133 TD/TT: Steam Shovel Engineer: PEREZ PatelRadiology Study observation (narrative)PEREZ Bergeron Thyroid glandOrdered By: Radiologist Radiology on 81-58-6346YMAY KPA Work Phone: Estimated glomerular filtration rate (GFR) non- Americanon 94-33-1150EPJ/1.73 sq M.predicted among non-blacks MDRD (S/P/Bld) [Vol rate/Area]Estimated glomerular filtration rate (GFR) non- Low>=60 mL/min/1.73m 2FFulton County Health CenterLaboratory - Chemistry and Chemistry - challengeon 01-83-9666Soffiun [Mass/Vol]8.9 mg/dL8.5-10.1 Protestant HospitalChloride [Moles/Vol]106 mmol/I62-896SxawsohbxProtestant HospitalCO2 [Moles/Vol]28.0 mmol/L21.0-32.0Protestant HospitalCreatinine [Mass/Vol]1.42 mg/dLHigh0.55-1.02Protestant HospitalGFR/1.73 sq M.predicted MDRD (S/P/Bld) [Vol rate/Area]43 mL/min/{1.73_m2}Low>=60 mL/min/1.73m 2FFulton County Health CenterGlucose [Mass/Vol]116 mg/iJJllt84-682DawmnnmvoProtestant HospitalPotassium [Moles/Vol]3.9 mmol/L3.5-5.1FFirelands Regional Medical Centerodium [Moles/Vol] 145 mmol/M537-903NoxfdzqqxProtestant HospitalUrea nitrogen [Mass/Vol]21.0 mg/dLHigh7.0-18.0Protestant HospitalUrea nitrogen/Creatinine [Mass ratio]14.8 mg/mgCommunity Regional Medical Centererum or plasma anion gap determinationon 85-12-8617Bljel gap [Moles/Vol]Serum or plasma anion gap determinationProtestant HospitalLaboratory - Chemistry and Chemistry - challengeon 37-08-1862Aeujdulpu Ql (U)NegativeProtestant HospitalGlucose (U) [Mass/Vol]NegativeProtestant Hospital Ketones Ql (U)[facility] HospitalpH (U)5 [pH][facility] Regional Medical Centerpecific gravity (U) [Rel density]1.000Protestant HospitalUrobilinogen (U) [Mass/Vol]NegativeProtestant HospitalLaboratory - Specimen informationon 61-18-5133Yruuvludiz (U)clearProtestant HospitalColor (U)yellowProtestant Hospital Laboratory - Urinalysison 56-11-6422Hnbxaqhmv esterase Test strip Ql (U)Negative Protestant HospitalNitrite Ql (U)NegativeProtestant HospitalProtein Ql (U)0.2FFulton County Health CenterNo Panel Informationon 68-07-9944Itaqd Occult Blood++[facility] Estimated glomerular filtration rate (GFR) non- Americanon 12-18-2024 GFR/1.73 sq M.predicted among non-blacks MDRD (S/P/Bld) [Vol rate/Area]Estimated glomerular filtration rate (GFR) non- AmericanLow>=60 mL/min/1.73m 2 Protestant HospitalLaboratory - Chemistry and Chemistry - challengeon 80-80-1101Udzsqnj [Mass/Vol]8.9 mg/dL8.5-10.1FFulton County Health CenterChloride [Moles/Vol]105 mmol/R23-291WrbcthevlProtestant HospitalCO2 [Moles/Vol]30.4 mmol/L21.0-32.0[facility] Creatinine [Mass/Vol]1.57 mg/dLHigh0.55-1.02[facility] Free T4 [Mass/Vol]0.90 ng/dL0.76-1.46Protestant HospitalGFR/1.73 sq M.predicted MDRD (S/P/Bld) [Vol rate/Area]38 mL/min/{1.73_m2}Low>=60 mL/min/1.73m 2FFulton County Health CenterGlucose [Mass/Vol]119 mg/dLHigh 74-106Protestant HospitalPotassium [Moles/Vol]4.1 mmol/L3.5-5.1 [facility] Medical Centerodium [Moles/Vol]143 mmol/H393-698IjsurapmyProtestant HospitalTSH Qn2.650 m[IU]/L0.358-3.740Protestant HospitalUrea nitrogen [Mass/Vol]28.0 mg/dLHigh7.0-18.0Protestant HospitalUrea nitrogen/Creatinine [Mass ratio]17.8 mg/mgCommunity Regional Medical Centererum or plasma anion gap determinationon 73-06-3867Qrpgf gap [Moles/Vol] Serum or plasma anion gap determinationProtestant HospitalINR in Platelet poor plasma by Coagulation assayOrdered By: Nathan Hathaway on 11-17-2024 INR Coag (PPP) [Relative time]INR in Platelet poor plasma by Coagulation assay Protestant HospitalComment on above:INR Therapeutic Range A) Pre- [...] 3 - 4.5Lon 11-17-2024 Specimen: [id number] Received: 11/17/24130 Status: SERENITY Rojas Num: [id number] Spec Type: Cytology Subm Dr: Seth Ley DO Tissues: A FNA SLIDES PATH (FNA THYROID) Procedures: -, DIFF QWIK/JOHN Hayden/4 Age/ Patient Sex Location Account Attending Physician Lashaun Joaquin 84/F [id number] Nathan Hathaway DO SPEC NUM: [id number] RECD: 11/17/24 STATUS: SERENITY ROJAS NUM: [id number] JED: 11/17/24- [facility] DR: Seth Ley DO ENTERED: 11/17/24 [facility] [address]: Nathan Hathaway DO SPEC TYPE: Cytology DEPT: CNG ENTERED BY: [id number] RECV BY: [id number] ORDERED: -, DIFF QWIK/3, PAPSTN/4 ORDERED: -, DIFF QWIK/3, PAPSTN/4 Pathological Diagnosis Thyroid nodule, US-guided FNA: Satisfactory for evaluation. Benign ([place] category I). Clinical Information Thyroid Nodule,adrenal nodule, hypothyroidism Gross Description Received fixed in Cytolyt is 32 ml red hazy fixed fluid for cytology said to have been obtained as Thyroid. ThinPrep preparations are prepared for microscopic examination. Also received are 6 total smeared slides and a Veracyte vial stored at -20 for microscopic examination. (CC/fl) Immediate Evaluation Thyroid, FNA, immediate evaluation: Mostly macrophages and colloid; additional pass requested. 11/17/2024, 12:20 PM Specimen: [id number] Received: 11/17/24 Status: SERENITY Betsy Num: [id number] Spec Type: Cytology Subm Dr: Seth Ley DO Tissues: A FNA SLIDES PATH (FNA THYROID) Procedures: -, DIFF QWIK/3, PAPSTN/4 Patient: Lashaun Joaquin [id number] (Continued) Specimen: [id number] Received: 11/17/24 (Continued) Signed (signature on file) Lala Mast MD 11/18/24 0857 Specimen: [id number] Received: 11/17/24 Status: SERENITY Besty Num: [id number] Spec Type: Cytology Subm Dr: Seth Ley DO Tissues: A FNA SLIDES PATH (FNA THYROID) Procedures: -, DIFF REENA/JOHN Hayden/4 Patient: Lashaun Joaquin [id number] (Continued) Specimen: [id number] Received: 11/17/24 (Continued) CPT Codes 63924, 78573 Specimen: [id number] Received: 11/17/24 Status: SERENITY Rojas Num: [id number] Spec Type: Cytology Subm Dr: Seth Ley DO Tissues: A FNA SLIDES PATH (FNA THYROID) Procedures: -, DIFF QWIK/3, PAPSTN/4 Patient: Lashaun Joaquin [id number] (Continued) Signed (signature on file) Lala Mast MD 11/18/24 0857 NormalHialeah Hospital Physician [facility] HospitalPartial Thromboplastin Timeon 26-00-4335cVWL Coag (Bld) [Time]28.9 qBfzqtb38.1-36.5The [facility] Physician GroupComment on above:Result Comment: A hematocrit value greater than 55% may lead to inaccurate results in coagulation testing. Patients having hematocrit values >55% require a special collection tube for coagulation studies. Please contact the laboratory at [phone] for redraw instructions. PERFORMED BY: [place] [address] PATHOLOGIST CAR CUSTOMIZER RAMEZ MONTES M.D.Performed By: #### PTT, PT #### [place] [address] USAPlatelet Counton 20-01-3007Thuhneegf (Bld) [#/Vol]253 10*3/yLWeriuh147-540Fyr [facility] Physician [facility] HospitalComment on above:Result Comment: PERFORMED BY: [place] [address] PATHOLOGIST CAR CUSTOMIZER RAMEZ MONTES M.D.Performed By: #### PLT #### [place] [address] USAPlatelets Auto (Bld) [#/Vol]Ordered By: Nathan Hathaway on 99-42-9893Fhqrggdqp (Bld) [#/Vol]Platelets [#/volume] in Blood by Automated -741BiljgjcqzProtestant HospitalProthrombin Time INRon 11-17-2024 INR Coag (PPP) [Relative time]1.0 {INR}NormalThe [facility] Physician Group Comment on above:Result Comment: INR Therapeutic Range [...] - 4.5Performed By: #### PTT, PT #### [facility] [address] [place] [address] USAPT Coag (PPP) [Time]11.9 sNormal9.0-12.9The [facility] Physician GroupComment on above:Result Comment: A hematocrit value greater than 55% may lead to inaccurate results in coagulation testing. Patients having hematocrit values >55% require a special collection tube for coagulation studies. Please contact the laboratory at [phone] for redraw instructions.Performed By: #### PTT, PT #### [facility] [address] [place] [address] USAProthrombin time (PT)Ordered By: Nathan Hathaway on 42-12-9577TD Coag (PPP) [Time]Prothrombin time (PT)9.0-12.9Protestant HospitalComment on above:A hematocrit value greater than 55% may lead to inaccurate results in coagulation testing. Patientshaving hematocrit values >55% require a special collection tube for coagulation studies. Please contact the laboratory at [phone] for redraw instructions.US needle aspirationon 88-74-4007QX needle aspirationCLEVELAND CLINIC [facility] [place] [address] [place] [address] Ultrasound Report Signed Patient: Lashaun Joaquin MR#: [id number] : 1940 Acct:[id number] Age/Sex: 84 / F ADM Date: 11/17/24 Loc: Room: Type: [facility] Attending Dr: Nathan Hathaway DO [...] Seth Ley M.D.11/17/2024 12:41 PM Dictation Location: [facility]--16 Tech: Deja Ruel Transcribed By: LAURA 11/17/24 1241 Dictated By: Seth Ley DO 11/17/24 1159 Signed By: 11/17/24 1241[facility] Physician GroupaPTT in Platelet poor plasma by Coagulation assayOrdered By: Nathan Hathaway on 07-04-0318qCNP Coag (PPP) [Time] Activated partial thromboplastin time (aPTT) in platelet poor plasma by coagulation a25.1-36.5FFulton County Health CenterComment on above:A hematocrit value greater than 55% may lead to inaccurate results in coagulation testing. Patientshaving hematocrit values >55% require a special collection tube for coagulation studies. Please contact the laboratory at [phone] for redraw instructions.Estimated glomerular filtration rate (GFR) non- Americanon 95-97-6379NLO/1.73 sq M.predicted among non-blacks MDRD (S/P/Bld) [Vol rate/Area]Estimated glomerular filtration rate (GFR) non- Low>=60 mL/min/1.73m 2FFulton County Health CenterLaboratory - Chemistry and Chemistry - challengeon 10-23-7560Nrecxan [Mass/Vol]8.6 mg/dL8.5-10.1 Protestant HospitalChloride [Moles/Vol]108 mmol/GUiox40-471 Protestant HospitalCO2 [Moles/Vol]27.0 mmol/L21.0-32.0[facility] HospitalCreatinine [Mass/Vol]1.39 mg/dLHigh0.55-1.02Pro[facility] HospitalFree T4 [Mass/Vol]0.80 ng/dL0.76-1.46Pro[facility] HospitalGFR/1.73 sq M.predicted MDRD (S/P/Bld) [Vol rate/Area]44 mL/min/{1.73_m2}Low>=60 mL/min/1.73m 2FFulton County Health CenterGlucose [Mass/Vol]85 mg/nC19-187FfphyemnrProtestant HospitalPotassium [Moles/Vol] 4.5 mmol/L3.5-5.1FFirelands Regional Medical Centerodium [Moles/Vol]144 mmol/L 136-145Pro[facility] HospitalTSH Qn3.767 m[IU]/LHigh0.358-3.740 [facility] HospitalUrea nitrogen [Mass/Vol]20.0 mg/dLHigh7.0-18.0 [facility] HospitalUrea nitrogen/Creatinine [Mass ratio]14.4 mg/mg [facility] Centererum or plasma anion gap determinationon 50-30-4705Kniym gap [Moles/Vol]Serum or plasma anion gap determinationProtestant HospitalEstimated glomerular filtration rate (GFR) non- Americanon 08-73-0743HBX/1.73 sq M.predicted among non-blacks MDRD (S/P/Bld) [Vol rate/Area]39 mL/min/{1.73_m2}Low>=60[facility] - Chemistry and Chemistry - challengeon 76-32-7782Wztvekj [Mass/Vol] 8.8 mg/dL8.5-10.1FFulton County Health CenterChloride [Moles/Vol]106 mmol/L 98-107Pro[facility] HospitalCO2 [Moles/Vol]30.8 mmol/L21.0-32.0 [facility] HospitalCreatinine [Mass/Vol]1.30 mg/dLHigh0.55-1.02 [facility] HospitalGFR/1.73 sq M.predicted MDRD (S/P/Bld) [Vol rate/Area]48 mL/min/{1.73_m2}Low>=60[facility] HospitalGlucose [Mass/Vol]89 mg/qR96-235MuuoxtdxvProtestant HospitalPotassium [Moles/Vol] 4.3 mmol/L3.5-5.1FFirelands Regional Medical Centerodium [Moles/Vol]143 mmol/L 136-145Pro[facility] HospitalUrea nitrogen [Mass/Vol]24.0 mg/dLHigh 7.0-18.0[facility] HospitalUrea nitrogen/Creatinine [Mass ratio] 18.5 mg/mgCommunity Regional Medical Centererum or plasma anion gap determinationon 91-73-1792Ssovp gap [Moles/Vol]10.5 mmol/[facility] HospitalEstimated glomerular filtration rate (GFR) non- Americanon 87-07-3606VGW/1.73 sq M.predicted among non-blacks MDRD (S/P/Bld) [Vol rate/Area]37 mL/min/{1.73_m2}Low>=60[facility] HospitalLaboratory - Chemistry and Chemistry - challengeon 81-82-9326Hizuduy [Mass/Vol]8.5 mg/dL 8.5-10.1FFulton County Health CenterChloride [Moles/Vol]106 mmol/L98-107 [facility] HospitalCO2 [Moles/Vol]28.7 mmol/L21.0-32.0[facility] HospitalCreatinine [Mass/Vol]1.36 mg/dLHigh0.55-1.02Pro[facility] HospitalGFR/1.73 sq M.predicted MDRD (S/P/Bld) [Vol rate/Area]45 mL/min/{1.73_m2}Low>=60[facility] HospitalGlucose [Mass/Vol]98 mg/vQ85-980UjntusqkuProtestant HospitalPotassium [Moles/Vol]4.3 mmol/L 3.5-5.1FFirelands Regional Medical Centerodium [Moles/Vol]142 mmol/M191-409 [facility] HospitalUrea nitrogen [Mass/Vol]26.0 mg/dLHigh7.0-18.0 [facility] HospitalUrea nitrogen/Creatinine [Mass ratio]19.1 mg/mg [facility] Centererum or plasma anion gap determinationon 06-76-6678Ketli gap [Moles/Vol]11.6 mmol/[facility] HospitalNM Heart Perfusion W stress and W radionuclide Rivka 71-41-4516Vfgigq Lexiscan Myoview cardiac perfusion stress test. No evidence of ischemia or myocardial infarction by perfusion imaging. Normal left ventricular systolic function, ejection fraction 88%. When compared previous study changes are noted. Previous study showed anterior wall ischemia which was not present during the study. Signed by: Faustino Zuniga 03/12/2024 4:34 PM Dictation workstation: [id number] By: Faustino Zuniga and Giannuzzi Michael STUDY: MYOCARDIAL PERFUSION STRESS TEST WITH LEXISCAN Performing facility: [facility], [address], [address], [place] [address] [facility] Provider: Holden Rosado RN, DIE ENGRAVING SUPERVISOR PCP: Dr. Ksenia Hathaway Supervising provider: Anthony Perry DO, [facility] INDICATION: ASHD HISTORY: Gender: F; Age: 83 y/o ; Height: HT 165.1 cm cm; Weight: WT 88.905 kg kg. CAD; High Cholesterol; HTN; Fatigue; Quit smoking 44 years ago. Cardiac catheterization on 2022. PTCA on 2022. COMPARISON: Previous nuclear testing completed [id number] at [place]. ACCESSION NUMBER(S): [id number] ORDERING CLINICIAN: HOLDEN ROSADO TECHNIQUE: ONE DAY [...] There were evidence of breast attenuation artifact. Faustino Bynum MD - 03/12/2024 Interpreted By: Faustino Zuniga and Giannuzzi Michael STUDY: MYOCARDIAL PERFUSION STRESS TEST WITH LEXISCAN Performing facility: [facility], [address], [address], [place] [address] [facility] Provider: Holden Rosado RN, DIE ENGRAVING SUPERVISOR PCP: Dr. Ksenia Hathaway Supervising provider: Anthony Perry DO, [facility] INDICATION: ASHD HISTORY: Gender: F; Age: 83 y/o ; Height: HT 165.1 cm cm; Weight: WT 88.905 kg kg. CAD; High Cholesterol; HTN; Fatigue; Quit smoking 44 years ago. Cardiac catheterization on 2022. PTCA on 2022. COMPARISON: Previous nuclear testing completed [id number] at [place]. ACCESSION NUMBER(S): [id number] ORDERING CLINICIAN: HOLDEN ROSADO TECHNIQUE: ONE DAY [...] Faustino Zuniga 03/12/2024 4:34 PM Dictation workstation: [id number] [facility] Work Phone: Radiology Study observation (narrative)[facility] Work Phone: NM Heart Perfusion W stress and W radionuclide IV Ordered By: Faustino Zuniga on 34-61-7004WweuilcnkpWexner Medical Center Work Phone: Calcium [Mass/volume] in Serum or PlasmaOrdered By: Holden Rosado on 50-21-6156Pvkrvpw [Mass/Vol]9.2 mg/dL8.6-10.3FFulton County Health CenterCarbon dioxide, total [Moles/volume] in Serum or PlasmaOrdered By: Holden Rosado on 91-56-9886UX5 [Moles/Vol]32.1 mmol/LHigh21.0-31.0Pro[facility] HospitalChloride [Moles/volume] in Serum or PlasmaOrdered By: Holden Rosado on 34-33-7429Oetgiucf [Moles/Vol]104 mmol/X94-188HvskusuxcProtestant HospitalCreatinine [Mass/volume] in Serum or PlasmaOrdered By: Holden Rosado on 82-49-1145Lirognsqms [Mass/Vol]1.36 mg/dLHigh0.60-1.20Pro[facility] HospitalGlucose [Mass/volume] in Serum or PlasmaOrdered By: Holden Rosado on 69-75-3829Baulsio [Mass/Vol]79 mg/nB06-227XqjrfaolqProtestant Hospital Comment on above:ADA recommended reference rangeRandom Glucose Reference Range is dependent on time and content of last meal. Glucose of more than 200 mg/dL in a nonstressed, ambulatory subject supports the diagnosisof Diabetes Mellitus.No Panel InformationOrdered By: Holden Rosado on 11-02-7284Kiiymvsfb GFR (CKD-EPI) 39.134 mL/MinProtestant HospitalPharmacy Creatinine Clearance (ChemN/AFFulton County Health CenterPotassium [Moles/volume] in Serum or PlasmaOrdered By: Holden Rosado on 80-36-7148Lyxrczanp [Moles/Vol]5.2 mmol/LHigh 3.5-5.1FFirelands Regional Medical Centererum or plasma anion gap determination Ordered By: Holden Rosado on 30-04-3654Lrysu gap [Moles/Vol]10.1 mmol/L6.0-15.0 [facility] Centerodium [Moles/volume] in Serum or PlasmaOrdered By: Holden Rosado on 07-23-4066Gyvipg [Moles/Vol]141 mmol/D365-328KrxnnvgtvProtestant HospitalUrea nitrogen [Mass/volume] in Serum or PlasmaOrdered By: Holden Rosado on 64-62-7031Gupm nitrogen [Mass/Vol]26 mg/dLHigh7-25Pro[facility]ant HospitalBasophils Auto (Bld) [#/Vol]on 02-31-8228Bdcbwzkli (Bld) [#/Vol]0.0 10 3/uL0.0-0.1FFulton County Health CenterBasophils/100 WBC Auto (Bld)on 15-23-4288Xqqmwwmcw/100 WBC (Bld)0.8 %0.2-2.0Pro[facility] HospitalEosinophils/100 WBC Auto (Bld)on 85-74-7123Owwwujytaey/100 WBC (Bld)2.8 % 0.9-7.0Pro[facility] HospitalErythrocyte distribution width Auto (RBC) [Ratio]on 47-54-0432Qjibbouuykl distribution width (RBC) [Ratio]13.1 % 11.0-15.0Pro[facility] HospitalEstimated glomerular filtration rate (GFR) non- Americanon 57-41-5667FJZ/1.73 sq M.predicted among non-blacks MDRD (S/P/Bld) [Vol rate/Area]49 mL/min/{1.73_m2}>=60Pro[facility] HospitalGlobulin Calc (S) [Mass/Vol]on 88-79-8036Gitdljda (S) [Mass/Vol]2.7 g/dL [facility] HospitalHematocrit Auto (Bld) [Volume fraction]on 19-42-3015Hzashbgiuy (Bld) [Volume fraction]29.2 %36.0-48.0Pro[facility] HospitalHemoglobin [Mass/volume] in Bloodon 71-33-6337Klozshgeos (Bld) [Mass/Vol]9.5 g/dL12.0-16.0[facility] HospitalLaboratory - Chemistry and Chemistry - challengeon 80-47-7572Szlqfsn [Mass/Vol]2.9 g/dL 3.4-5.0Pro[facility] HospitalALP [Catalytic activity/Vol]44 U/L46-116 [facility] HospitalALT [Catalytic activity/Vol]13 U/L14-59 [facility] HospitalAST [Catalytic activity/Vol]14 U/L15-37 [facility] HospitalBilirubin [Mass/Vol]0.6 mg/dL0.2-1.0[facility] HospitalCalcium [Mass/Vol]8.9 mg/dL8.5-10.1FFulton County Health CenterChloride [Moles/Vol]107 mmol/V29-283SogyabmkoProtestant HospitalCO2 [Moles/Vol]27.9 mmol/L21.0-32.0[facility] Creatinine [Mass/Vol]1.08 mg/dL0.55-1.02[facility] GFR/1.73 sq M.predicted MDRD (S/P/Bld) [Vol rate/Area]59 mL/min/{1.73_m2}>=60 [facility] HospitalGlucose [Mass/Vol]83 mg/eW99-621RtfboqruqProtestant HospitalPotassium [Moles/Vol]3.8 mmol/L3.5-5.1FFulton County Health CenterProtein [Mass/Vol]5.6 g/dL6.4-8.2FFulton County [facility] Center Sodium [Moles/Vol]141 mmol/I795-373PtehpizxsProtestant HospitalUrea nitrogen [Mass/Vol]18.0 mg/dL7.0-18.0Pro[facility] HospitalUrea nitrogen/Creatinine [Mass ratio]16.7 mg/mgProtestant Hospital Laboratory - Hematology and Cell countson 21-05-1070Sqtmoxnb granulocytes/100 WBC (Bld)0.2 %0.0-0.5FFulton County Health CenterLeukocytes [#/volume] corrected for nucleated erythrocytes in Blood by Automated counon 64-96-7584W[facility] corrected for nucl RBC Auto (Bld) [#/Vol]4.7 10 3/uL4.0-11.0Pro[facility] HospitalLymphocytes Auto (Bld) [#/Vol]on 39-43-7651Qtldnekfvjl (Bld) [#/Vol]1.0 10 3/uL1.2-3.8Pro[facility] HospitalLymphocytes/100 WBC Auto (Bld)on 89-35-8574Vpgafrhgphj/100 WBC (Bld)21.8 %20.5-60.0[facility] HospitalH Auto (RBC) [Entitic mass]on 81-01-3204RAR (RBC) [Entitic mass]29.2 pg26.7-34.0Pro[facility] HospitalMCHC Auto (RBC) [Mass/Vol]on 64-38-7296BIKX (RBC) [Mass/Vol]32.5 g/dL29.9-35.2FFulton County Health CenterMCV Auto (RBC) [Entitic vol]on 42-16-5770IAQ (RBC) [Entitic vol] 89.8 fL81.0-99.0[facility] HospitalMonocytes Auto (Bld) [#/Vol]on 70-43-5062Bpiwtypil (Bld) [#/Vol]0.7 10 3/uL0.3-0.8Pro[facility] HospitalMonocytes/100 WBC Auto (Bld)on 35-49-4377Zrcmdrlge/100 WBC (Bld)14.2 % 1.7-12.0Pro[facility] HospitalNeutrophils Auto (Bld) [#/Vol]on 05-60-0396Adhwtxyowkl (Bld) [#/Vol]2.8 10 3/uL1.4-6.5FFulton County Health CenterNeutrophils/100 WBC Auto (Bld)on 06-71-7378Yllomjzpbjp/100 WBC (Bld)60.2 % 43.0-75.0[facility] HospitalNo Panel Informationon 02-20-2024 Eosinophils # (Auto)0.1 10 3/uL0.0-0.7FFulton County Health CenterImmature Granulocyte # (Auto)0.01 10 3/uL0.00-0.03[facility] Platelet mean volume Auto (Bld) [Entitic vol]on 61-73-7477Wmyhekge mean volume (Bld) [Entitic vol]10.5 fL9.5-13.5FFulton County Health CenterPlatelets Auto (Bld) [#/Vol]on 44-77-8466Ndihyvgsx (Bld) [#/Vol]250 10 3/rY713-269 [facility] HospitalRBC Auto (Bld) [#/Vol]on 54-75-6253PWF (Bld) [#/Vol]3.25 10 6/uL4.20-5.40[facility] Centererum or plasma albumin/globulin mass ratioon 05-57-3298Ldzlkpf/Globulin [Mass ratio]1.1 {ratio} [facility] Centererum or plasma anion gap determinationon 82-20-9833Bzewx gap [Moles/Vol]9.9 mmol/LFFulton County Health Center Basophils Auto (Bld) [#/Vol]on 78-70-5883Zlhcogxnc (Bld) [#/Vol]0.0 10 3/uL 0.0-0.1FFulton County Health CenterBasophils/100 WBC Auto (Bld)on 46-55-1050Dcfepvjvw/100 WBC (Bld)0.8 %0.2-2.0[facility] Cholesterol in LDL Calc [Mass/Vol]on 66-32-5145Usznhgeugfn in LDL [Mass/Vol] 100.4 mg/dLProtestant HospitalComment on above:<100 mg/dl BCSTQTY938-901 mg/dl NEAR OR ABOVE UUAEYMD881-559 mg/dl BORDERLINE LXRJ301-015 mg/dl HIGH>190 mg/dl VERY HIGHCholesterol in VLDL Calc [Mass/Vol]on 02-19-2024 Cholesterol in VLDL [Mass/Vol]15.6 mg/dLProtestant Hospital Eosinophils/100 WBC Auto (Bld)on 55-83-2724Ysscdxhglzl/100 WBC (Bld)1.9 %0.9-7.0 [facility] HospitalErythrocyte distribution width Auto (RBC) [Ratio]on 08-88-1158Bklfnfkltbk distribution width (RBC) [Ratio]13.2 %11.0-15.0 [facility] HospitalEstimated glomerular filtration rate (GFR) non- Americanon 71-67-3020YNK/1.73 sq M.predicted among non-blacks MDRD (S/P/Bld) [Vol rate/Area]44 mL/min/{1.73_m2}>=60Pro[facility] HospitalGlobulin Calc (S) [Mass/Vol]on 07-47-7214Eeyjdimo (S) [Mass/Vol]2.8 g/dL [facility] HospitalHematocrit Auto (Bld) [Volume fraction]on 21-12-3201Cfchqsgjyr (Bld) [Volume fraction]31.2 %36.0-48.0[facility] HospitalHemoglobin [Mass/volume] in Bloodon 78-08-3000Xtfenhtjuz (Bld) [Mass/Vol]10.0 g/dL12.0-16.0[facility] HospitalLaboratory - Chemistry and Chemistry - challengeon 81-83-5950Odjejqc [Mass/Vol]3.2 g/dL 3.4-5.0[facility] HospitalALP [Catalytic activity/Vol]49 U/L46-116 [facility] HospitalALT [Catalytic activity/Vol]15 U/L14-59 [facility] HospitalAST [Catalytic activity/Vol]15 U/L15-37 [facility] HospitalBilirubin [Mass/Vol]0.5 mg/dL0.2-1.0[facility] HospitalCalcium [Mass/Vol]9.4 mg/dL8.5-10.1FFulton County Health CenterChloride [Moles/Vol]108 mmol/L00-633GvpbcdqhrProtestant HospitalCholesterol [Mass/Vol]158 mg/dL<=200[facility] Cholesterol in HDL [Mass/Vol]42 mg/eK73-16DdugqvuomProtestant Hospital Comment on above:> or =60 mg/dl - LOW CARDIOVASCULAR RISK<40 mg/dl - HIGH CARDIOVASCULAR RISKCO2 [Moles/Vol]28.7 mmol/L21.0-32.0[facility] HospitalCreatinine [Mass/Vol]1.18 mg/dL0.55-1.02[facility] GFR/1.73 sq M.predicted MDRD (S/P/Bld) [Vol rate/Area]53 mL/min/{1.73_m2}>=60 [facility] HospitalGlucose [Mass/Vol]93 mg/dE15-159EvdipubgrProtestant HospitalPotassium [Moles/Vol]4.0 mmol/L3.5-5.1FFulton County Health CenterProtein [Mass/Vol]6.0 g/dL6.4-8.2FFulton [facility] Center Sodium [Moles/Vol]145 mmol/A654-339SesdsoylxProtestant HospitalTriglyceride [Mass/Vol]78 mg/dL<=150Protestant HospitalTSH Qn4.696 m[IU]/L 0.358-3.740Pro[facility] HospitalUrea nitrogen [Mass/Vol]20.0 mg/dL 7.0-18.0[facility] HospitalUrea nitrogen/Creatinine [Mass ratio] 16.9 mg/mgProtestant HospitalLaboratory - Hematology and Cell countson 49-19-9587Vccrjyme granulocytes/100 WBC (Bld)0.6 %0.0-0.5FFulton County Health CenterLeukocytes [#/volume] corrected for nucleated erythrocytes in Blood by Automated counon 22-35-0923VVI corrected for nucl RBC Auto (Bld) [#/Vol]5.3 10 3/uL4.0-11.0[facility] Lymphocytes Auto (Bld) [#/Vol]on 12-83-0808Dvrchbobckg (Bld) [#/Vol]1.1 10 3/uL 1.2-3.8[facility] HospitalLymphocytes/100 WBC Auto (Bld)on 42-79-9353Fynxqhljjsh/100 WBC (Bld)21.3 %20.5-60.0[facility] HospitalMCH Auto (RBC) [Entitic mass]on 25-14-3581YOE (RBC) [Entitic mass]29.6 pg 26.7-34.0[facility] HospitalMCHC Auto (RBC) [Mass/Vol]on 40-09-8875HZUN (RBC) [Mass/Vol]32.1 g/dL29.9-35.2FFulton County Health CenterMCV Auto (RBC) [Entitic vol]on 89-19-2219HRQ (RBC) [Entitic vol]92.3 fL 81.0-99.0[facility] HospitalMonocytes Auto (Bld) [#/Vol]on 58-77-0652Cdyrsegjk (Bld) [#/Vol]0.6 10 3/uL0.3-0.8[facility] HospitalMonocytes/100 WBC Auto (Bld)on 43-33-7045Hzawssdir/100 WBC (Bld)11.1 % 1.7-12.0[facility] HospitalNeutrophils Auto (Bld) [#/Vol]on 06-88-5318Tmmeintpund (Bld) [#/Vol]3.4 10 3/uL1.4-6.5FFulton County Health CenterNeutrophils/100 WBC Auto (Bld)on 84-99-1174Toysczolcjq/100 WBC (Bld)64.3 % 43.0-75.0[facility] HospitalNo Panel Informationon 02-19-2024 Eosinophils # (Auto)0.1 10 3/uL0.0-0.7FFulton County Health CenterImmature Granulocyte # (Auto)0.03 10 3/uL0.00-0.03[facility] Platelet mean volume Auto (Bld) [Entitic vol]on 18-06-5146Ibrdvjbv mean volume (Bld) [Entitic vol]10.4 fL9.5-13.5FFulton County Health CenterPlatelets Auto (Bld) [#/Vol]on 26-48-0637Wfvhjquua (Bld) [#/Vol]262 10 3/yV621-777 [facility] HospitalRBC Auto (Bld) [#/Vol]on 66-87-5492MFU (Bld) [#/Vol]3.38 10 6/uL4.20-5.40[facility] Centererum or plasma albumin/globulin mass ratioon 45-31-7790Wkqrjuu/Globulin [Mass ratio]1.1 {ratio} [facility] Centererum or plasma anion gap determinationon 91-15-8388Kdfbh gap [Moles/Vol]12.3 mmol/LFFirelands Regional Medical Centererum or plasma total cholesterol/high density lipoprotein (HDL) cholesterol mass rat on 11-63-4607Wqzlzszxlts.total/Cholesterol in HDL [Mass ratio]3.8 {ratio} [facility] HospitalComment on above:3.3 - 4.4 LOW RISK4.4 - 7.1 AVERAGE RISK7.1 - 11.0 MODERATE RISK>11.0 HIGH RISKBasophils Auto (Bld) [#/Vol] on 36-04-7080Awquzebrc (Bld) [#/Vol]0.0 10 3/uL0.0-0.1FFulton County Health CenterBasophils/100 WBC Auto (Bld)on 97-79-7894Oqkivytoo/100 WBC (Bld)0.4 % 0.2-2.0[facility] HospitalEosinophils/100 WBC Auto (Bld)on 19-24-4518Glcsvwlhdng/100 WBC (Bld)1.2 %0.9-7.0[facility] Erythrocyte distribution width Auto (RBC) [Ratio]on 76-44-1141Ubsxitrhiny distribution width (RBC) [Ratio]13.2 %11.0-15.0[facility] Estimated glomerular filtration rate (GFR) non- Americanon 02-18-2024 GFR/1.73 sq M.predicted among non-blacks MDRD (S/P/Bld) [Vol rate/Area]34 mL/min/{1.73_m2}>=60Pro[facility] HospitalHematocrit Auto (Bld) [Volume fraction]on 29-91-3227Jdsvceiodf (Bld) [Volume fraction]31.7 %36.0-48.0 [facility] HospitalHemoglobin [Mass/volume] in Bloodon 02-18-2024 Hemoglobin (Bld) [Mass/Vol]10.3 g/dL12.0-16.0[facility] - Chemistry and Chemistry - challengeon 53-51-3255Yyrxlbcna [Mass/Vol]2.3 mg/dL1.8-2.4FFulton County Health CenterNatriuretic peptide B (Bld) [Mass/Vol]800.0 pg/mL<=1800.0[facility] HospitalCalcium [Mass/Vol]9.0 mg/dL8.5-10.1FFulton County Health CenterChloride [Moles/Vol] 106 mmol/S43-876VubbcmzcoProtestant HospitalCO2 [Moles/Vol]30.4 mmol/L 21.0-32.0[facility] HospitalCreatinine [Mass/Vol]1.46 mg/dL 0.55-1.02Pro[facility] HospitalGFR/1.73 sq M.predicted MDRD (S/P/Bld) [Vol rate/Area]42 mL/min/{1.73_m2}>=60Pro[facility] HospitalGlucose [Mass/Vol]102 mg/bI92-427JlsrwzdyxProtestant HospitalPotassium [Moles/Vol] 4.1 mmol/L3.5-5.1FFirelands Regional Medical Centerodium [Moles/Vol]144 mmol/L 136-145Pro[facility] HospitalUrea nitrogen [Mass/Vol]21.0 mg/dL 7.0-18.0[facility] HospitalUrea nitrogen/Creatinine [Mass ratio] 14.4 mg/mgProtestant HospitalLaboratory - Hematology and Cell countson 44-92-6695Dzneirgl granulocytes/100 WBC (Bld)0.7 %0.0-0.5FFulton County Health CenterLeukocytes [#/volume] corrected for nucleated erythrocytes in Blood by Automated counon 19-11-2360NRG corrected for nucl RBC Auto (Bld) [#/Vol]6.8 10 3/uL4.0-11.0[facility] Lymphocytes Auto (Bld) [#/Vol]on 71-68-3191Gfrfbgvuaqp (Bld) [#/Vol]0.8 10 3/uL 1.2-3.8[facility] HospitalLymphocytes/100 WBC Auto (Bld)on 68-23-3438Tkrinbgkoov/100 WBC (Bld)11.2 %20.5-60.0[facility] HospitalH Auto (RBC) [Entitic mass]on 49-99-0869YPF (RBC) [Entitic mass]29.3 pg 26.7-34.0[facility] HospitalMCHC Auto (RBC) [Mass/Vol]on 78-83-2970FUVJ (RBC) [Mass/Vol]32.5 g/dL29.9-35.2FFulton County Health CenterMCV Auto (RBC) [Entitic vol]on 46-55-5420IHT (RBC) [Entitic vol]90.1 fL 81.0-99.0[facility] HospitalMonocytes Auto (Bld) [#/Vol]on 91-01-8406Pfsnsgdae (Bld) [#/Vol]0.6 10 3/uL0.3-0.8[facility] HospitalMonocytes/100 WBC Auto (Bld)on 03-10-0974Cuvcyxeqy/100 WBC (Bld)9.5 % 1.7-12.0Pro[facility] HospitalNeutrophils Auto (Bld) [#/Vol]on 19-63-0298Qwhqwiiteiq (Bld) [#/Vol]5.2 10 3/uL1.4-6.5FFulton County Health CenterNeutrophils/100 WBC Auto (Bld)on 84-32-2243Tyykjkdrfhj/100 WBC (Bld)77.0 % 43.0-75.0[facility] HospitalNo Panel Informationon 02-18-2024 Troponin I High Vjeoamlhlrc44.1 pg/mL4.0-51.3FFulton County Health Center Comment on above:CUT-OFF POINTS HAVE BEEN ESTABLISHED [...] AND CLINICAL INFORMATION.Eosinophils # (Auto) 0.1 10 3/uL0.0-0.7FFulton County Health CenterImmature Granulocyte # (Auto) 0.05 10 3/uL0.00-0.03Pro[facility] HospitalPlatelet mean volume Auto (Bld) [Entitic vol]on 04-82-3112Ydtwzcng mean volume (Bld) [Entitic vol]10.1 fL 9.5-13.5FFulton County Health CenterPlatelets Auto (Bld) [#/Vol]on 54-64-7977Nptmmqsxp (Bld) [#/Vol]255 10 3/uV473-345AmbujglgcProtestant HospitalRBC Auto (Bld) [#/Vol]on 54-48-4819OFR (Bld) [#/Vol]3.52 10 6/uL4.20-5.40 [facility] Centererum or plasma anion gap determinationon 12-79-3738Wypxa gap [Moles/Vol]11.7 mmol/LFFulton County Health Center Basophils Auto (Bld) [#/Vol]on 65-23-1080Eiimmkqup (Bld) [#/Vol]0.1 10 3/uL 0.0-0.1FFulton County Health CenterBasophils/100 WBC Auto (Bld)on 90-49-5140Qkvopvqtr/100 WBC (Bld)1.1 %0.2-2.0[facility] Cholesterol in LDL Calc [Mass/Vol]on 89-35-2196Yjwsxsacsyo in LDL [Mass/Vol] 113.6 mg/dLProtestant HospitalComment on above:<100 mg/dl CGJXEPX028-301 mg/dl NEAR OR ABOVE LEFZGHF090-967 mg/dl BORDERLINE QRBP016-755 mg/dl HIGH>190 mg/dl VERY HIGHCholesterol in VLDL Calc [Mass/Vol]on 02-02-2024 Cholesterol in VLDL [Mass/Vol]10.4 mg/dLProtestant Hospital Eosinophils/100 WBC Auto (Bld)on 32-40-4773Fcbcaolwcok/100 WBC (Bld)2.3 %0.9-7.0 [facility] HospitalErythrocyte distribution width Auto (RBC) [Ratio]on 01-33-4730Efwtiiozwao distribution width (RBC) [Ratio]13.1 %11.0-15.0 [facility] HospitalEstimated glomerular filtration rate (GFR) non- Americanon 38-30-9928YDP/1.73 sq M.predicted among non-blacks MDRD (S/P/Bld) [Vol rate/Area]34 mL/min/{1.73_m2}>=60Pro[facility] HospitalGlobulin Calc (S) [Mass/Vol]on 49-25-0680Xjfntnyd (S) [Mass/Vol]3.0 g/dL [facility] HospitalHematocrit Auto (Bld) [Volume fraction]on 10-90-9500Chledbunzn (Bld) [Volume fraction]34.7 %36.0-48.0[facility] HospitalHemoglobin [Mass/volume] in Bloodon 16-35-4974Wbbyjvpwxo (Bld) [Mass/Vol]10.9 g/dL12.0-16.0[facility] HospitalLaboratory - Chemistry and Chemistry - challengeon 46-13-0031Wnegslh [Mass/Vol]3.4 g/dL 3.4-5.0[facility] HospitalALP [Catalytic activity/Vol]52 U/L46-116 [facility] HospitalALT [Catalytic activity/Vol]13 U/L14-59 [facility] HospitalAST [Catalytic activity/Vol]14 U/L15-37 [facility] HospitalBilirubin [Mass/Vol]0.3 mg/dL0.2-1.0[facility] HospitalCalcium [Mass/Vol]9.3 mg/dL8.5-10.1FFulton County Health CenterChloride [Moles/Vol]109 mmol/D06-277GiyxjtaehProtestant HospitalCholesterol [Mass/Vol]169 mg/dL<=200[facility] Cholesterol in HDL [Mass/Vol]45 mg/tT92-36FiyrwfbxrProtestant Hospital Comment on above:> or =60 mg/dl - LOW CARDIOVASCULAR RISK<40 mg/dl - HIGH CARDIOVASCULAR RISKCO2 [Moles/Vol]29.8 mmol/L21.0-32.0[facility] HospitalCreatinine [Mass/Vol]1.47 mg/dL0.55-1.02[facility] GFR/1.73 sq M.predicted MDRD (S/P/Bld) [Vol rate/Area]41 mL/min/{1.73_m2}>=60 [facility] HospitalGlucose [Mass/Vol]104 mg/tH62-044GvjgffzmbProtestant HospitalPotassium [Moles/Vol]4.9 mmol/L3.5-5.1FFulton County Health CenterProtein [Mass/Vol]6.4 g/dL6.4-8.2FFulton [facility] Center Sodium [Moles/Vol]147 mmol/O927-449JebvqwqjgProtestant HospitalTriglyceride [Mass/Vol]52 mg/dL<=150Pro[facility] HospitalTS Qn3.613 m[IU]/L 0.358-3.740[facility] HospitalUrea nitrogen [Mass/Vol]24.0 mg/dL 7.0-18.0[facility] HospitalUrea nitrogen/Creatinine [Mass ratio] 16.3 mg/mgProtestant HospitalLaboratory - Hematology and Cell countson 42-73-6715Ufonkwdg granulocytes/100 WBC (Bld)0.4 %0.0-0.5FFulton County Health CenterLeukocytes [#/volume] corrected for nucleated erythrocytes in Blood by Automated counon 22-07-0638AYW corrected for nucl RBC Auto (Bld) [#/Vol]5.6 10 3/uL4.0-11.0[facility] Lymphocytes Auto (Bld) [#/Vol]on 95-38-2509Kczcwmrdmav (Bld) [#/Vol]1.1 10 3/uL 1.2-3.8[facility] HospitalLymphocytes/100 WBC Auto (Bld)on 61-24-8201Jefukizpmdw/100 WBC (Bld)20.2 %20.5-60.0[facility] Auto (RBC) [Entitic mass]on 76-50-5224URQ (RBC) [Entitic mass]29.8 pg 26.7-34.0[facility] Auto (RBC) [Mass/Vol]on 34-84-6638ASNB (RBC) [Mass/Vol]31.4 g/dL29.9-35.2FFulton County Health CenterMCV Auto (RBC) [Entitic vol]on 26-95-0392VCV (RBC) [Entitic vol]94.8 fL 81.0-99.0[facility] HospitalMonocytes Auto (Bld) [#/Vol]on 13-45-4325Dktejdomr (Bld) [#/Vol]0.7 10 3/uL0.3-0.8[facility] HospitalMonocytes/100 WBC Auto (Bld)on 07-91-6502Skenteazi/100 WBC (Bld)11.7 % 1.7-12.0[facility] HospitalNeutrophils Auto (Bld) [#/Vol]on 64-25-4489Nmyoplcjopw (Bld) [#/Vol]3.6 10 3/uL1.4-6.5FFulton County Health CenterNeutrophils/100 WBC Auto (Bld)on 46-99-3067Qeqczdnsiie/100 WBC (Bld)64.3 % 43.0-75.0[facility] HospitalNo Panel Informationon 02-02-2024 Eosinophils # (Auto)0.1 10 3/uL0.0-0.7FFulton County Health CenterImmature Granulocyte # (Auto)0.02 10 3/uL0.00-0.03[facility] Platelet mean volume Auto (Bld) [Entitic vol]on 85-95-3011Gwxxtrot mean volume (Bld) [Entitic vol]10.6 fL9.5-13.5FFulton County Health CenterPlatelets Auto (Bld) [#/Vol]on 65-69-1123Qztemksje (Bld) [#/Vol]253 10 3/qF756-486 [facility] HospitalRBC Auto (Bld) [#/Vol]on 90-58-2199PZM (Bld) [#/Vol]3.66 10 6/uL4.20-5.40[facility] Centererum or plasma albumin/globulin mass ratioon 06-56-1921Nccwlpx/Globulin [Mass ratio]1.1 {ratio} [facility] Centererum or plasma anion gap determinationon 03-81-6631Hfdbv gap [Moles/Vol]13.1 mmol/LFFirelands Regional Medical Centererum or plasma total cholesterol/high density lipoprotein (HDL) cholesterol mass rat on 82-46-5426Ejjqfiyrbuc.total/Cholesterol in HDL [Mass ratio]3.8 {ratio} [facility] HospitalComment on above:3.3 - 4.4 LOW RISK4.4 - 7.1 AVERAGE RISK7.1 - 11.0 MODERATE RISK>11.0 HIGH RISKUA RANDOM W/MICROSCOPICon 59-98-5939Foktnly (U)CLEARCLEARMadison Heights Ranch [employer] Other Color (U)DK YELLOWYELLOWMadison Heights [employer] Other Ketones Ql (U)NegativeNEGATIVE mg/dLMadison Heights [employer] Other Leukocyte esterase Test strip Ql (U)NegativeNEGATIVE [employer] Other pH (U)6.5 [pH]5.0-9.0[place] [employer] Other ua RANDOM W/MICROSCOPIC0-2 #/HPFAbnormalNONE SEEN #/HPFMadison Heights Ranch [employer] Other ua RANDOM W/MICROSCOPIC5-10 #/HPFAbnormal0-2 #/HPF [place] [employer] Other ua RANDOM W/MICROSCOPICsee noteNomissouri delta medical center Ranch [employer] Other ua RANDOM W/MICROSCOPIC1.0101.005-1.025[place] [employer] Other ua RANDOM W/MICROSCOPICNegativeNEGATIVEStantum Other ua RANDOM W/MICROSCOPICLARGEAbnormalNEGATIVEPlaced [employer] Other ua RANDOM W/MICROSCOPICPositiveAbnormalNEGArterial Remodeling TechnologiesPlaced [employer] Other UA RANDOM W/MICROSCOPIC1.0 EU/dL0.2-1.0 EU/dLNomissouri delta medical center [employer] Other UA RANDOM W/MICROSCOPICTRACE #/HPFAbnormalNONE SEEN #/HPFMadison Heights Ranch [employer] Other UA RANDOM W/MICROSCOPICNONE SEENNONE SEENMadison Heights Ranch [employer] Other ua RANDOM W/MICROSCOPICRARE #/LPFNONE/RARE #/LPFMadison Heights Ranch [employer] Other UA RANDOM W/MICROSCOPICNone Seen #/HPFNone Seen #/HPF [facility] [employer] Other ua RANDOM W/MICROSCOPICNONE SEEN #/LPFNONE SEEN #/LPF [place] [employer] Other Urinalysis - DIPSTICKon 56-81-5857Uckjudahvc (U)clear [place] [employer] Other Bilirubin Ql (U)NegativeMadison Heights [employer] Other Color (U)light yellowMadison Heights Ranch [employer] Other Glucose Ql (U)NegativeMadison Heights [employer] Other Hemoglobin Ql (U)+++[employer] Other Ketones Ql (U)NegativeMadison Heights [employer] Other Leukocyte esterase Test strip Ql (U)NegativeMadison Heights [employer] Other Nitrite Ql (U)NegativeMad[place] Heights [employer] Other pH (U)0.2 [pH][employer] Other Protein Ql (U)traceNomissouri delta medical center [employer] Other Specific gravity (U) [Rel density]1.005[place] [employer] Other Urobilinogen (U) [Mass/Vol]off chartNomissouri delta medical center [employer] Other Urinalysis - DIPSTICKNort [employer] Other esr Westergren method (Bld) [Velocity]on 17-93-5781GWZ (Bld) [Velocity]119 mm/hHigh0 - 20 mm/hrWvumedicine Barnesville HospitalFERRITIN BLDon 12-51-8920Ijsakfna [Mass/Vol]160.0 ng/mL14.7 - 205.1 ng/mLCleveland Aitkin HospitalIron and Iron binding capacity panelon 16-92-5627Belm [Mass/Vol]45 ug/dL41 - 186 ug/dLWvumedicine Barnesville HospitalIron binding capacity [Mass/Vol]252 ug/dL232 - 386 ug/dL [facility] HospitalIron/TIBC [Molar ratio]17.9 %15.0 - 57.0 %[facility] metabolic 2000 panelon 42-90-1924Lxyxe gap [Moles/Vol]10 mmol/L9 - 18 mmol/L [facility] HospitalCalcium [Mass/Vol]9.2 mg/dL8.5 - 10.2 mg/dLWvumedicine Barnesville Hospital Chloride [Moles/Vol]106 mmol/LHigh97 - 105 mmol/LCleveland ClinicCO2 [Moles/Vol] 27 mmol/L22 - 30 mmol/LCleveland Aitkin HospitalCreatinine [Mass/Vol]1.09 mg/dLHigh0.58 - 0.96 mg/dLWvumedicine Barnesville HospitalEstimated Glomerular Filtration Rate51 mL/min/1.73m Low>=60 mL/min/1.73mCleveland Aitkin HospitalGlucose [Mass/Vol]116 mg/gBZtfp06 - 99 mg/dL [facility] HospitalPotassium [Moles/Vol]4.3 mmol/L3.7 - 5.1 mmol/LCleveland Aitkin Hospital Sodium [Moles/Vol]143 mmol/L136 - 144 mmol/LCleveland Aitkin HospitalUrea nitrogen [Mass/Vol]19 mg/dL7 - 21 mg/dLOhio State Health System W Auto Differential panel (Bld)on 78-67-6932Wvmusbcon (Bld) [#/Vol]0.04 10*3/uL<0.11 k/uLWvumedicine Barnesville Hospital Basophils/100 WBC (Bld)0.8 %[facility] HospitalDifferential cell count method Nom (Bld)AutoCleveland ClinicEosinophils (Bld) [#/Vol]0.14 10*3/uL<0.46 k/uL [facility] HospitalEosinophils/100 WBC (Bld)2.9 %[facility] HospitalErythrocyte distribution width (RBC) [Ratio]13.6 %11.5 - 15.0 %[facility] HospitalHematocrit (Bld) [Volume fraction]28.8 %Low36.0 - 46.0 %[facility] HospitalHemoglobin (Bld) [Mass/Vol]9.2 g/dLLow11.5 - 15.5 g/dLWvumedicine Barnesville HospitalImmature granulocytes (Bld) [#/Vol]<0.10 k/uLWvumedicine Barnesville HospitalImmature granulocytes/100 WBC (Bld)0.4 % [facility] HospitalLymphocytes (Bld) [#/Vol]0.83 10*3/uLLow1.00 - 4.00 k/uL [facility] HospitalLymphocytes/100 WBC (Bld)17.4 %[facility] HospitalH (RBC) [Entitic mass]29.6 pg26.0 - 34.0 pgClevelM Health Fairview Ridges HospitalHC (RBC) [Mass/Vol]31.9 g/dL30.5 - 36.0 g/dLTriHealth McCullough-Hyde Memorial HospitalV (RBC) [Entitic vol]92.6 fL80.0 - 100.0 fLCleveland ClinicMonocytes (Bld) [#/Vol]0.40 10*3/uL<0.87 k/uLWvumedicine Barnesville Hospital Monocytes/100 WBC (Bld)8.4 %[facility] HospitalNeutrophils (Bld) [#/Vol]3.35 10*3/uL1.45 - 7.50 k/uLWvumedicine Barnesville HospitalNeutrophils/100 WBC (Bld)70.1 %[facility] HospitalNucleated RBC (Bld) [#/Vol]<0.01 k/uLWvumedicine Barnesville HospitalNucleated RBC/100 WBC (Bld) [Ratio]0.0 /100 WBCWvumedicine Barnesville HospitalPlatelet mean volume (Bld) [Entitic vol]10.2 fL9.0 - 12.7 fLCleveland ClinicPlatelets (Bld) [#/Vol]274 10*3/uL150 - 400 k/uLWvumedicine Barnesville HospitalRBC (Bld) [#/Vol]3.11 10*6/uLLow3.90 - 5.20 m/uL [facility] HospitalWBC (Bld) [#/Vol]4.78 10*3/uL3.70 - 11.00 k/uLWvumedicine Barnesville Hospital RETIC COUNTon 57-49-2291Ezajilpuvpjbd (Bld) [#/Vol]0.71016 10*3/uL0.018 - 0.100 M/uLWvumedicine Barnesville HospitalReticulocytes (Bld) [#/Vol]on 63-87-2600Bsiavolmrkzdb/100 RBC (Bld)2.0 %0.4 - 2.0 %[facility] HospitalBasophils Auto (Bld) [#/Vol]Ordered By: Lj Ryan on 88-08-7108Rynabjwxw (Bld) [#/Vol]0.0 10*3/uL0.0-0.2FFulton County Health CenterBasophils/100 WBC Auto (Bld)Ordered By: Lj Ryan on 49-35-7973Uavjuoocu/100 WBC (Bld)0.7 %.[facility] HospitalCalcium [Mass/volume] in Serum or PlasmaOrdered By: Lj Ryan on 34-78-9573Wgfejzv [Mass/Vol]8.9 mg/dL8.6-10.3FFulton County Health CenterCarbon dioxide, total [Moles/volume] in Serum or PlasmaOrdered By: Lj Ryan on 79-88-1030RB3 [Moles/Vol]30.5 mmol/L21.0-31.0Pro[facility] HospitalChloride [Moles/volume] in Serum or PlasmaOrdered By: Lj Ryan on 32-76-7984Btjlkiuy [Moles/Vol]103 mmol/T08-389AialxnyvfProtestant HospitalCreatinine [Mass/volume] in Serum or PlasmaOrdered By: Lj Ryan on 94-86-6504Mwfzbddovr [Mass/Vol]1.37 mg/dL0.60-1.20Pro[facility] HospitalEosinophils Auto (Bld) [#/Vol]Ordered By: Lj Ryan on 19-46-5197Vkkpxvrnalx (Bld) [#/Vol]0.1 10*3/uL0.0-0.45Pro[facility] HospitalEosinophils/100 WBC Auto (Bld) Ordered By: Lj Ryan on 41-30-3729Hooernstmif/100 WBC (Bld)1.9 %.[facility] HospitalErythrocyte distribution width Auto (RBC) [Ratio]Ordered By: Lj Ryan on 09-29-5737Psnmaafxztl distribution width (RBC) [Ratio]14.1 % 11.9-15.3FFulton County Health CenterGlucose [Mass/volume] in Serum or PlasmaOrdered By: Lj Ryan on 73-84-4977Ayebymn [Mass/Vol]94 mg/mD80-944 [facility] HospitalComment on above:ADA recommended reference rangeRandom Glucose Reference Range is dependent on time and content of last meal. Glucose of more than 200 mg/dL in a nonstressed, ambulatory subject supports the diagnosisof Diabetes Mellitus.Hematocrit Auto (Bld) [Volume fraction]Ordered By: Lj Ryan on 59-66-9905Utyrvbflst (Bld) [Volume fraction]28.2 %34.0-46.4FFulton County Health CenterHemoglobin [Mass/volume] in BloodOrdered By: Lj Ryan on 81-73-0897Ogkdwzlxtw (Bld) [Mass/Vol]9.7 g/dL11.8-15.4FFulton County Health CenterLeukocytes [#/volume] corrected for nucleated erythrocytes in Blood by Automated coun Ordered By: Lj Ryan on 18-53-0967ZSK corrected for nucl RBC Auto (Bld) [#/Vol]6.0 10*3/uL3.8-11.6FFulton County Health CenterLymphocytes Auto (Bld) [#/Vol]Ordered By: Lj Ryan on 88-82-0126Fqwmbryrbya (Bld) [#/Vol]0.9 10*3/uL1.00-4.8Pro[facility] HospitalLymphocytes/100 WBC Auto (Bld) Ordered By: Lj Ryan on 19-13-9702Farkuprnjad/100 WBC (Bld)15.1 %.[facility] HospitalH Auto (RBC) [Entitic mass]Ordered By: Lj Ryan on 48-48-5040COS (RBC) [Entitic mass]30.2 pg24.7-34.3FFulton County Health CenterMCHC Auto (RBC) [Mass/Vol]Ordered By: Lj Ryan on 42-88-3318KJKZ (RBC) [Mass/Vol]34.4 g/dL32.0-35.0Pro[facility] HospitalMCV Auto (RBC) [Entitic vol]Ordered By: Lj Ryan on 54-75-3505QPX (RBC) [Entitic vol]87.7 gW63-332LcqbjskhoProtestant HospitalMagnesium [Mass/volume] in Serum or PlasmaOrdered By: Lj Ryan on 45-39-7372Qgbdorfyw [Mass/Vol]2.1 mg/dL1.9-2.7 [facility] HospitalMonocytes Auto (Bld) [#/Vol]Ordered By: Lj Ryan on 52-69-2201Tggalpjjd (Bld) [#/Vol]0.5 10*3/uL0.0-0.8Pro[facility] HospitalMonocytes/100 WBC Auto (Bld)Ordered By: Lj Ryan on 05-18-2023 Monocytes/100 WBC (Bld)8.7 %.[facility] HospitalNeutrophils Auto (Bld) [#/Vol]Ordered By: Lj Ryan on 63-70-6738Ehqtgfeubjy (Bld) [#/Vol]4.4 10*3/uL1.8-7.7FFulton County Health CenterNeutrophils/100 WBC Auto (Bld) Ordered By: Lj Ryan on 87-03-9689Rqodktbisqx/100 WBC (Bld)73.6 %.[facility] HospitalNo Panel InformationOrdered By: Lj Ryan on 75-22-7241Yesylswkn GFR (CKD-EPI)39.034 mL/MinProtestant Hospital Pharmacy Creatinine Clearance (Chem38.04[facility] Nucleated erythrocytes [Presence] in Blood by Automated countOrdered By: Lj Ryan on 17-40-0763Gprqwkgki RBC Auto Ql (Bld)0.1 /100{WBC}0-0.5FFulton County Health CenterPhosphate [Mass/volume] in Serum or PlasmaOrdered By: Lj Ryan on 81-76-1571Lxoaaxnki [Mass/Vol]5.3 mg/dL3.7-7.2FFulton County Health CenterPlatelet mean volume Auto (Bld) [Entitic vol]Ordered By: Lj Ryan on 14-28-0878Yjdafegy mean volume (Bld) [Entitic vol]7.8 fL6.3-10.7 Protestant HospitalPlatelets Auto (Bld) [#/Vol]Ordered By: Lj Ryan on 64-55-4167Ttoskguyo (Bld) [#/Vol]314 10*3/oR928-514QoavoaeqzProtestant HospitalPotassium [Moles/volume] in Serum or PlasmaOrdered By: Lj Ryan on 87-92-9927Vsmmuxdzc [Moles/Vol]4.0 mmol/L3.5-5.1FFulton County Health CenterRBC Auto (Bld) [#/Vol]Ordered By: Lj Ryan on 98-50-4353GIE (Bld) [#/Vol]3.21 10*6/uL3.60-5.00[facility] Centererum or plasma anion gap determinationOrdered By: Lj Ryan on 27-45-9942Qjvrk gap [Moles/Vol]12.5 mmol/L6.0-15.0[facility] Centerodium [Moles/volume] in Serum or PlasmaOrdered By: Lj Ryan on 08-55-8059Sqmgri [Moles/Vol]142 mmol/X713-685NmrwocmtqProtestant HospitalUrea nitrogen [Mass/volume] in Serum or PlasmaOrdered By: Lj Ryan on 70-25-6151Wivj nitrogen [Mass/Vol]21 mg/dL7-25Pro[facility] HospitalWBC Auto (Bld) [#/Vol]Ordered By: Lj Ryan on 74-59-4770ZQT (Bld) [#/Vol]6.0 10*3/uL 3.8-11.6FFulton County Health CenterAlanine aminotransferase [Enzymatic activity/volume] in Serum or PlasmaOrdered By: Fernando Ch on 53-18-8924NXB [Catalytic activity/Vol]14 U/L7-52Pro[facility] HospitalAlbumin [Mass/volume] in Serum or Plasma by Bromocresol green (BCG) dye binding metho Ordered By: Fernando Ch on 49-90-4317Xlxhgxm BCG dye [Mass/Vol]4.0 g/dL3.5-5.7 [facility] HospitalAlkaline phosphatase [Enzymatic activity/volume] in Serum or PlasmaOrdered By: Fernando Ch on 02-84-3422DFH [Catalytic activity/Vol]44 U/K39-994MxhybdywaProtestant HospitalAspartate aminotransferase [Enzymatic activity/volume] in Serum or PlasmaOrdered By: Fernando Ch on 20-96-1461CTC [Catalytic activity/Vol]16 U/W67-63IxbotwieaProtestant HospitalBilirubin.total [Mass/volume] in Serum or PlasmaOrdered By: Fernando Ch on 89-26-0300Fitpmhkli [Mass/Vol]0.7 mg/dL0.3-1.0Pro[facility] HospitalCreatine kinase [Enzymatic activity/volume] in Serum or Plasma Ordered By: Fernando Ch on 42-07-1725HM [Catalytic activity/Vol]49 U/L30-223 Protestant HospitalGlobulin Calc (S) [Mass/Vol]Ordered By: Fernando Ch on 71-47-9472Agtqxndw (S) [Mass/Vol]2.9 g/dLProtestant HospitalLaboratory - CoagulationOrdered By: Fernando Ch on 25-10-0329EP Coag (PPP) [Time]12.5 s9.0-12.9Pro[facility] HospitalMonocyte distribution width [Entitic volume] in Blood by AutomatedOrdered By: Fernando Ch on 61-97-1425Fpphhmja distribution width Auto (Bld) [Entitic vol]22.37 %0.00-20.00 [facility] HospitalComment on above:For adults in ED, MDW > 20.0 may be associated with a higher risk of sepsis during the first 12 hrs of hospital admissionNatriuretic peptide B [Mass/Vol]Ordered By: Fernando Ch on 53-95-4373Sbxkaiewlue peptide B (Bld) [Mass/Vol]450.0 pg/mL5-100Pro[facility]ant HospitalPlatelet poor plasma international normalized ratio (INR) by coagulation assay (relatOrdered By: Fernando Ch on 23-72-1271NBD Coag (PPP) [Relative time]1.1 {INR}[facility]ant HospitalComment on above: INR Therapeutic Range A) [...] By: Fernando Ch on 05-17-2023 Protein [Mass/Vol]6.9 g/dL6.4-8.9[facility] Centererum or plasma albumin/globulin mass ratioOrdered By: Fernando Ch on 05-17-2023 Albumin/Globulin [Mass ratio]1.4 {ratio}[facility] Troponin I.cardiac [Mass/volume] in Serum or Plasma by Detection limit <= 0.01 ng/Ordered By: Fernando Ch on 68-26-8940Kipzysui I.cardiac DL <= 0.01 ng/mL [Mass/Vol]10.2 pg/mL0.0-15.0Pro[facility] HospitalActivated partial thromboplastin time (aPTT) in platelet poor plasma by coagulation aOrdered By: Jonna Perry on 63-66-6239vEOH Coag (PPP) [Time]32.0 s25.1-36.5FFulton County Health CenterBand form neutrophils/100 WBC Manual cnt (Bld)Ordered By: Jonna Perry on 29-66-0450Nwfq form neutrophils/100 WBC (Bld)4 %0-5FFulton County Health CenterBasophils Auto (Bld) [#/Vol]Ordered By: Jonna Perry on 03-08-2023 Basophils (Bld) [#/Vol]N/[facility] CenterBasophils/100 WBC Auto (Bld)Ordered By: Jonna Perry on 13-61-0894Qchhzvnde/100 WBC (Bld)NSalem City HospitalBasophils/100 WBC Manual cnt (Bld)Ordered By: Jonna Perry on 01-02-5316Badqteasl/100 WBC (Bld)0 %0-2FFulton County [facility] Center Carbon dioxide, total [Moles/volume] in Serum or PlasmaOrdered By: Jonna Perry on 19-26-6360FF3 [Moles/Vol]33.1 mmol/L21.0-31.0[facility] Chloride [Moles/volume] in Serum or PlasmaOrdered By: Jonna Perry on 03-08-2023 Chloride [Moles/Vol]104 mmol/Q47-612UqtkvenjgProtestant HospitalCholesterol [Mass/volume] in Serum or PlasmaOrdered By: Jonna Perry on 75-32-5563Hxbaeruhwpu [Mass/Vol]151 mg/yC143-695VsvhzsdckProtestant HospitalComment on above:Chol less than 200 mg/dl low riskChol 201-239 mg/dl borderline riskChol 240 mg/dl and greater high riskCholesterol in LDL Calc [Mass/Vol]Ordered By: Jonna Perry on 78-35-9845Koawwalhazu in LDL [Mass/Vol]100 mg/dL0-100Pro[facility]ant HospitalComment on above:LDL ATP III CLASSIFICATIONLDL less than 100 mg/dL OptimalLDL 100-129 mg/dL Near or above bsmwxtlXQZ330-173 mg/dL Borderline highLDL 160-189 mg/dL HighLDL greater than 189 mg/dL Very highCholesterol in VLDL Calc [Mass/Vol]Ordered By: Jonna Perry on 13-74-9491Spepbubsosg in VLDL [Mass/Vol]13 mg/dLProtestant HospitalCreatinine [Mass/volume] in Serum or PlasmaOrdered By: Jonna Perry on 49-46-4579Pngbbiajjt [Mass/Vol]1.14 mg/dL0.60-1.20Pro[facility] HospitalEosinophils Auto (Bld) [#/Vol] Ordered By: Jnona Perry on 55-91-1155Kwuchxslzch (Bld) [#/Vol]N/[facility] CenterEosinophils/100 WBC Auto (Bld)Ordered By: Jonna Perry on 24-80-4066Mhmtoybxgga/100 WBC (Bld)N/[facility] Eosinophils/100 WBC Manual cnt (Bld)Ordered By: Jonna Perry on 03-08-2023 Eosinophils/100 WBC (Bld)2 %1-3FFulton County Health CenterErythrocyte distribution width Auto (RBC) [Ratio]Ordered By: Jonna Perry on 03-08-2023 Erythrocyte distribution width (RBC) [Ratio]14.1 %11.9-15.3FFulton County Health CenterHematocrit Auto (Bld) [Volume fraction]Ordered By: Jonna Perry on 75-79-3314Injnsqwuxf (Bld) [Volume fraction]30.7 %34.0-46.4FFulton County Health CenterHemoglobin [Mass/volume] in BloodOrdered By: Jonna Perry on 48-64-8626Kjooecyaak (Bld) [Mass/Vol]10.3 g/dL11.8-15.4FFulton County Health CenterLaboratory - Chemistry and Chemistry - challengeon 03-08-2023 Cholesterol [Mass/Vol]151\S\056Fmdcdd179-552YA-VyoytTracy Medical Center 250 DO Work Phone: Comment on above:Chol less than 200 mg/dl low risk Chol 201-239 mg/dl borderline risk Chol 240 mg/dl and greater high risk Cholesterol in LDL [Mass/Vol]100\S\538Abszsb1-940SS-OocrtTracy Medical Center 250 DO Work Phone: Comment on above:LDL ATP III CLASSIFICATION LDL less than 100 mg/dL Optimal LDL 100-129 mg/dL Near or above optimal LDL 130-159 mg/dL Borderline high LDL 160-189 mg/dL High LDL greater than 189 mg/dL Very high Laboratory - CoagulationOrdered By: Jonna Perry on 98-90-4662QW Coag (PPP) [Time] 12.2 s9.0-12.9Pro[facility] HospitalLeukocytes [#/volume] corrected for nucleated erythrocytes in Blood by Automated counOrdered By: Jonna Perry on 72-41-3696AOC corrected for nucl RBC Auto (Bld) [#/Vol]6.2 10*3/uL3.8-11.6 [facility] HospitalLymphocytes Auto (Bld) [#/Vol]Ordered By: Jonna Perry on 53-40-7452Dkpjjzxjflc (Bld) [#/Vol]N/[facility] CenterLymphocytes/100 WBC Auto (Bld)Ordered By: Jonna Perry on 03-08-2023 Lymphocytes/100 WBC (Bld)N/[facility] CenterLymphocytes/100 WBC Manual cnt (Bld)Ordered By: Jonna Perry on 57-87-4299Ywgvtewvsfr/100 WBC (Bld)16 %18-42[facility] HospitalH Auto (RBC) [Entitic mass]Ordered By: Jonna Perry on 56-98-7272WAB (RBC) [Entitic mass]29.0 pg24.7-34.3FFulton County Health CenterMCHC Auto (RBC) [Mass/Vol]Ordered By: Jonna Perry on 60-52-9411OZEP (RBC) [Mass/Vol]33.6 g/dL32.0-35.0Pro[facility] HospitalMCV Auto (RBC) [Entitic vol]Ordered By: Jonna Perry on 53-28-6978RMT (RBC) [Entitic vol]86.2 eZ56-232OfyraggdsProtestant HospitalMetamyelocytes/100 WBC Manual cnt (Bld)Ordered By: Jonna Perry on 08-00-5522Bxwqptnwbflvml/100 WBC (Bld)1 %0-0Pro[facility]ant HospitalMonocytes Auto (Bld) [#/Vol]Ordered By: Jonna Perry on 75-72-6150Xzbmepcxj (Bld) [#/Vol]N/[facility] CenterMonocytes/100 WBC Auto (Bld)Ordered By: Jonna Perry on 03-08-2023 Monocytes/100 WBC (Bld)N/[facility] CenterMonocytes/100 WBC Manual cnt (Bld)Ordered By: Jonna Perry on 48-69-8491Lacavpejm/100 WBC (Bld)3 % -Protestant HospitalNeutrophils Auto (Bld) [#/Vol]Ordered By: Jonna Perry on 84-12-4823Yxrewygefoi (Bld) [#/Vol]N/[facility] CenterNeutrophils/100 WBC Auto (Bld)Ordered By: Jonna Perry on 03-08-2023 Neutrophils/100 WBC (Bld)N/[facility] CenterNo Panel InformationOrdered By: Jonna Perry on 48-68-1537Qydcjdbtt GFR (CKD-EPI)48.665 mL/MinProtestant HospitalPharmacy Creatinine Clearance (ChemN/A Protestant HospitalNo Panel Informationon 41-49-685441.0\S\32.0 Mtopfc57.1-36.5MP-[facility] 250 DO Work Phone: Comment on above:PERFORMED BY:[place] [id number] [address] [place], [place] [phone] MEDICAL DIRECTORJAMAAL MO M.D.1.1\S\1.1NormalMP-[facility] 250 DO Work Phone: Comment on above:INR [...] patients with mechanical heart valves: 3 - 4.512.2\S\12.0Cxsdxi5.0-12.9MP-[facility] 250 DO Work Phone: [phone]\S\9.7Csskia4.3-10.7MP-[facility] 250 DO Work Phone: [phone]\S\33.1above high kogucnxgr98.0-31.0MP-[facility] 250 DO Work Phone: [phone]\S\802Acszfb60-549IB-Vwgfu [facility] 250 DO Work Phone: [phone]\S\5.3Pirolh2.5-5.1MP-[facility] 250 DO Work Phone: [phone]\S\082Yxnghp755-592UF-Pubnx [facility] 250 DO Work Phone: [phone]\S\12Ksdpwb6-19FW-Vwiwt [facility] 250 DO Work Phone: [phone]\S\48.665NormalMP-[facility] 250 DO Work Phone: [phone]\S\1.76Bdcooj8.60-1.20MP-[facility] 250 DO Work Phone: [phone]\S\4.0Normal<5.0MP-[facility] 250 DO Work Phone: Comment on above:PERFORMED BY:[id number] [place], [place] [phone] MEDICAL DIRECTORJAMAAL MO M.D.13\S\13NormalMP-[facility] 250 DO Work Phone: [phone]\S\59Rakywb7-789SJ-Xlayf [facility] 250 DO Work Phone: Comment on above:TRIG ATP III CLASSIFICATION TRIG less than 150 mg/dL Normal TRIG 150-199 mg/dL Borderline high RLOE352-100 mg/dL High TRIG greater than 500 mg/dL Very high Standard traceable to the Center for Disease Conrtrol and Prevention (CDC) test method.38\S\02Rkfink56-95HW-Tayjm [facility] 250 DO Work Phone: Comment on above:HDL CHOL ATP-III CLASSIFICATION Cardiovascular Risk HDL > or equal to 60 mg/dL LOW HDL < 40 mg/dL HIGH74\S\74 above high -56PV-Hqyra [facility] 250 DO Work Phone: [phone]\S\427Wixkxo262-839LW-Mgoqt [facility] 250 DO Work Phone: [phone]\S\14.3Ukkmoi19.9-15.3MP-[facility] 250 DO Work Phone: [phone]\S\33.8Qizdou89.0-35.0MP-[facility] 250 DO Work Phone: [phone]\S\29.2Jjxhvc72.7-34.3MP-[facility] 250 DO Work Phone: [phone]\S\1above high -7LT-Halxt [facility] 250 DO Work Phone: [phone]\S\6Yzmnhp0-6FZ-Wejww [facility] 250 DO Work Phone: [phone]\S\0Oxxptn4-6NF-Fwxdd [facility] 250 DO Work Phone: [phone]\S\5Mjoqqj0-09QZ-Utnwc [facility] 250 DO Work Phone: [phone]\S\16below low lknnxldgo36-03QM-Mlfxf [facility] 250 DO Work Phone: [phone]\S\0Nwjmim1-0AG-Yupit [facility] 250 DO Work Phone: OlhuooEcauipLL-Zregb [facility] 250 DO Work Phone: [phone] on above:PERFORMED BY:[address] [place] [id number] [place], [place] [id number] MEDICAL DIRECTORJAMAAL MO M.D.NormalNormalNormalMP-[facility] 250 DO Work Phone: [phone]\S\86.5Ibbqyv42-480CQ-Osgfh [facility] 250 DO Work Phone: [phone]\S\30.7below low qiskedfvy58.0-46.4MP-[facility] 250 DO Work Phone: [phone]\S\10.3below low tfvtjpolp38.8-15.4MP-[facility] 250 DO Work Phone: [phone]\S\3.56below low threshold3.60-5.00MP-[facility] 250 DO Work Phone: [phone]\S\8.3Uckxlq5.8-11.6MP-[facility] 250 DO Work Phone: [phone]\S\6.8Qlguxo7.8-11.6MP-[facility] 250 DO Work Phone: Nucleated erythrocytes [Presence] in Blood by Automated countOrdered By: Jonna Perry on 35-92-2577Eurdyzprn RBC Auto Ql (Bld)N/A Protestant HospitalOvalocyte detectionOrdered By: Jonna Perry on 94-60-2353Khzujqiusm LM Ql (Bld)SlightProtestant HospitalPlatelet adequacy [Presence] in Blood by Light microscopyOrdered By: Jonna Perry on 53-95-0699Knngfvmob LM Ql (Bld)NormalNoSumma Health Platelet mean volume Auto (Bld) [Entitic vol]Ordered By: Jonna Perry on 03-08-2023 Platelet mean volume (Bld) [Entitic vol]9.0 fL6.3-10.7FFulton County Health CenterPlatelet morphology finding [Identifier] in BloodOrdered By: Jonna Perry on 84-86-9489Cudiyazk morphology finding Nom (Bld)N/AFFulton County Health CenterPlatelet poor plasma international normalized ratio (INR) by coagulation assay (relatOrdered By: Jonna Perry on 15-81-4615AOQ Coag (PPP) [Relative time]1.1 {INR}Protestant HospitalComment on above:INR Therapeutic Range A) Pre- [...] Auto (Bld) [#/Vol]Ordered By: Jonna Perry on 07-31-6695Veuadwens (Bld) [#/Vol]276 10*3/pU523-252HpwckclxzProtestant HospitalPlatelets Large [Presence] in Blood by Light microscopyOrdered By: Jonna Perry on 18-42-9174Iedaouzum Large LM Ql (Bld)[facility] HospitalPoikilocytosis [Presence] in Blood by Light microscopyOrdered By: Jonna Perry on 99-85-9430Uwmgtjsruwzfcx LM Ql (Bld)[facility] HospitalPotassium [Moles/volume] in Serum or PlasmaOrdered By: Jonna Perry on 09-62-4171Wdbxkloxk [Moles/Vol]5.1 mmol/L 3.5-5.1FFulton County Health CenterRBC Auto (Bld) [#/Vol]Ordered By: Jonna Perry on 16-48-5423HJW (Bld) [#/Vol]3.56 10*6/uL3.60-5.00Protestant HospitalRB morphologyOrdered By: Jonna Perry on 05-25-1990ZNP morphology finding Nom (Bld)N/AFFirelands Regional Medical Centeregmented neutrophils/100 WBC Manual cnt (Bld)Ordered By: Jonna Perry on 48-05-5925Lcfvmvjqv neutrophils/100 WBC (Bld)74 %50-70[facility] Centererum or plasma anion gap determinationOrdered By: Jonna Perry on 80-00-3456Zwihm gap [Moles/Vol]9.0 mmol/L 6.0-15.0[facility] Medical Centererum or plasma high density lipoprotein (HDL) cholesterol measurementOrdered By: Jonna Perry on 03-08-2023 Cholesterol in HDL [Mass/Vol]38 mg/fQ45-80ZrtspchziProtestant Hospital Comment on above:HDL CHOL ATP-III CLASSIFICATION Cardiovascular RiskHDL > or equal to 60 mg/dL LOWHDL < 40 mg/dL HIGHSerum or plasma total cholesterol/high density lipoprotein (HDL) cholesterol mass ratOrdered By: Jonna Perry on 73-57-0928Juuqnbapoyi.total/Cholesterol in HDL [Mass ratio]4.0 {ratio}<5.0 [facility] Medical Centerodium [Moles/volume] in Serum or PlasmaOrdered By: Jonna Perry on 29-20-0276Hwgdwt [Moles/Vol]141 mmol/K210-506XbhspdnpuProtestant HospitalTriglyceride [Mass/volume] in Serum or PlasmaOrdered By: Jonna Perry on 58-00-7353Jprmrckdjqki [Mass/Vol]67 mg/dL0-149Protestant HospitalComment on above:TRIG ATP III CLASSIFICATIONTRIG less than 150 mg/dL NormalTRIG 150-199 mg/dL Borderline highTRIG 200-500 mg/dL High TRIG greater than 500 mg/dL Very highStandard traceable to the Center for Disease Co nrtrol and Prevention (CDC) test method.Urea nitrogen [Mass/volume] in Serum or PlasmaOrdered By: Jonna Perry on 74-94-8962Fuqu nitrogen [Mass/Vol]21 mg/dL7-25 Protestant HospitalWBC Auto (Bld) [#/Vol]Ordered By: Jonna Perry on 92-88-9718WML (Bld) [#/Vol]8.6 10*3/uL3.8-11.6FFulton County Health Center Office Visit (Cardiology)on 28-47-0710Qsbtfa-up visitDiagnoses/Problems Assessed Class 1 obesity with body [...] associated with accelerated hypertension, was admitted to [place] briefly, diuresed approximately 14 pounds with diuretics. [...] negative for complaint. Vitals Vital Signs Recorded: 67Zwo6551 10:14AMRecorded: 65Zty9105 10:04AM Mxcjmyfw401, RUE, Wzzsnqw33 (more content not included)...NormalUH Touchworks Tobacco Screening.on 07-75-1914Edvgl depression screening assessmentNoWhit[facility] [employer] 250 DO Work Phone: Fall risk assessmenta) No falls within the last year [facility] [employer] 250 DO Work Phone: Tobacco use status CPHSb) NoMP-[facility] [place] 250 DO Work Phone: cbc AUTO DIFFon 08-40-6392FUIK #0.0 103/ulNormal 0.0-0.1The [facility] SystemComment on above:Performed By: #### CBC #### [facility] [address] [address] [address] Jose David ShanksBasophils/100 WBC (Bld)0.5 %Normal0.2-2.0[facility] Comment on above:Performed By: #### CBC #### [facility] [address] [place] [address] Dr. Jose David Devries #0.1 103/ulNormal0.0-0.7The [facility] SystemComment on above: Performed By: #### CBC #### [facility] [address] [place] [address] Dr. Jose David Vickersosinophils/100 WBC (Bld)1.2 %Normal0.9-7.0[facility] Comment on above:Performed By: #### CBC #### [facility] [address] [place] [address] Dr. Jose David Vickersrythrocyte distribution width (RBC) [Ratio]13.2 %Nvyzlw54.0-15.0 [facility] Medical CenterComment on above:Performed By: #### CBC #### [facility] [address] [place] [address] Dr. Jose David ShanksHematocrit (Bld) [Volume fraction]33.9 %Critically low36.0-48.0 [facility] Medical CenterComment on above:Performed By: #### CBC #### [facility] [address] [place] [address] Dr. Jose David ShanksHemoglobin (Bld) [Mass/Vol]11.0 g/dLCritically low12.0-16.0[facility] Medical CenterComment on above:Performed By: #### CBC #### [facility] [address] [place] [address] Dr. Jose David Guerrero #0.03 10e3/ulNormal0.00-0.03The [facility] SystemComment on above:Performed By: #### CBC #### [facility] [address] [address] [address] Jose David Guerrero %0.5 %Normal0.0-0.5The [facility] SystemComment on above: Performed By: #### CBC #### [facility] [address] [address] [address] Jose David Rolon #0.8 103/ulCritically low1.2-3.8The [facility] Comment on above:Performed By: #### CBC #### [facility] [address] [place] [address] Dr. Jose David Anthonyhocytes/100 WBC (Bld)13.7 %Critically low20.5-60.0The [facility] SystemComment on above:Performed By: #### CBC #### [facility] [address] [place] [address] Dr. Jose David Donovan DIFF REQNONormalThe [facility] SystemComment on above: Performed By: #### CBC #### [facility] [address] [place] [address] Dr. Jose David Andino (RBC) [Entitic mass]28.9 sxMoxynx21.7-34.0The [facility] SystemComment on above:Performed By: #### CBC #### [facility] [address] [place] [address] Dr. Jose David Turner (RBC) [Mass/Vol]32.4 g/vJJigqcu31.9-35.2The [facility] SystemComment on above:Performed By: #### CBC #### [facility] [address] [place] [address] Dr. Jose David Moctezuma (RBC) [Entitic vol]89.0 gLTciioa67.0-99.0The [facility] SystemComment on above:Performed By: #### CBC #### [facility] [address] [place] [address] Dr. Yilan ChangMONO #0.5 103/ulNormal0.3-0.8The [facility] SystemComment on above:Performed By: #### CBC #### [facility] [address] [place] [address] Dr. Jose David Oilvoocytes/100 WBC (Bld)8.2 %Normal1.7-12.0The [facility] Comment on above:Performed By: #### CBC #### [facility] [address] [place] [address] Dr. Jose David Mix #4.3 103/ulNormal1.4-6.5The [facility] SystemComment on above:Performed By: #### CBC #### [facility] [address] [place] [address] Dr. Jose David Herndonutrophils/100 WBC (Bld)75.9 %Critically high43.0-75.0The [facility] SystemComment on above:Performed By: #### CBC #### [facility] [address] [place] [address] Dr. Jose David Carmichaellet mean volume (Bld) [Entitic vol]10.1 fLNormal9.5-13.5The [facility] SystemComment on above:Performed By: #### CBC #### [facility] [address] [place] [address] Dr. Jose David WardT279 103/vpKpnnag682-507Cul [facility] SystemComment on above: Performed By: #### CBC #### [facility] [address] [place] [address] Dr. Jose David ShanksRBC3.81 106/ulCritically low4.20-5.40The [facility] SystemComment on above:Performed By: #### CBC #### [facility] [address] [place] [address] Dr. Jose David ShanksWBC5.7 103/ulNormal4.0-11.0The [facility] SystemComment on above: Performed By: #### CBC #### [facility] [address] [place] [address] Dr. Jose David Sullivan 98-49-6754Ypsztfos [Mass/Vol]180.0 ng/mLNormal 8.0-252.0The [facility] SystemComment on above:Performed By: #### CBC #### [facility] [address] [address] [address] Jose David Helm AND TIBCon 03-01-2023% ICFYAUGZIY90.6 %NormalThe [facility] SystemComment on above:Performed By: #### CBC #### [facility] [address] [address] [address] Jose David Helm [Mass/Vol]61.0 ug/aBSgiobi35.0-170.0The [facility] Comment on above:Performed By: #### CBC #### [facility] [address] [place] [address] Dr. Jose David FangC SSRAOG559.0 ug/oDTemjuz158.0-450.0The [facility] Comment on above:Performed By: #### CBC #### [facility] [address] [place] [address] Dr. Jose David Villanueva STRESS/REST MULTIon 39-66-5366CS STRESS/REST MULTIPatient: LASHAUN JOAQUIN Exam Date: 03/01/2023 : 1940 Gender:F Ordering : DR NATHAN HATHAWAY D.O. Admission #: [id number] Family : Order #: [id number] CLICK HERE TO VIEW EXAM RADIOLOGY REPORT [...] STUDY: PERFUSION DEFECT: LOCATION: Mid-anterior. Apical anterior. [place]. SIZE: Medium (3-4 segments). SEVERITY: Moderate. TYPE: [...] by: William Dominguez MD on 03/01/2023 at 14:54[facility] MiamisburgPROF CHEM 8 (BAS METB)on 62-14-6091Xmiok gap [Moles/Vol]8.8 mmol/LNormalAdams County Regional Medical CenterComment on above:Performed By: #### LACT #### [facility] [address] [place] [address] Dr. Jose David ShanksCalcium [Mass/Vol]9.0 mg/dLNormal8.5-10.1[facility] Comment on above:Performed By: #### LACT #### [facility] [address] [place] [address] Dr. Jose David ShanksChloride [Moles/Vol]106 mmol/THttpjp46-572QvpAdams County Regional Medical Center Comment on above:Performed By: #### LACT #### [facility] [address] [place] [address] Dr. Jose David ShanksCO2 [Moles/Vol]31.0 mmol/PZilosn27.0-32.0[facility] Comment on above:Performed By: #### LACT #### [facility] [address] [place] [address] Dr. Jose David ShanksCreatinine [Mass/Vol]1.18 mg/dLCritically high0.55-1.02[facility] CenterComment on above:Performed By: #### LACT #### [facility] [address] [place] [address] Dr. Main ChangEGFR-AF UWZYCXWM89 mL/min/1.55g0Dnssfbwrsa low>=60The [facility] SystemComment on above:Performed By: #### LACT #### [facility] [address] [address] [address] Jose David VickersGFR-NON AF RAFHXPZB57 mL/min/1.85m9Rviswojgum low>=60The [facility] SystemComment on above:Performed By: #### LACT #### [facility] [address] [address] [address] Jose David ShanksGlucose [Mass/Vol]98 mg/cOUncqsg70-367Rbf [facility] Comment on above:Performed By: #### LACT #### [facility] [address] [address] [address] Jose David ShanksPotassium [Moles/Vol]4.8 mmol/LNormal3.5-5.1[facility] Comment on above:Performed By: #### LACT #### [facility] [address] [address] [address] Jose David ShanksSodium [Moles/Vol]141 mmol/FAxjusb959-360NfhAdams County Regional Medical Center Comment on above:Performed By: #### LACT #### [facility] [address] [address] [address] Jose David ShanksUrea nitrogen [Mass/Vol]16.0 mg/dLNormal7.0-18.0[facility] CenterComment on above:Performed By: #### LACT #### [facility] [address] [address] [address] Jose David Rubio nitrogen/Creatinine [Mass ratio]13.6 mg/mgNormalThe [facility] SystemComment on above:Performed By: #### LACT #### [facility] [address] [address] [address] Jose David ShanksRETICULOCYTEon 69-57-7507PFZQS9.51 %Normal0.60-3.10The [facility] SystemComment on above:Performed By: #### CBC #### [facility] [address] [address] [address] Jose David Mohan B12 AND FOLATEon 46-92-6253Gvreylmgs (Vitamin B12) [Mass/Vol] 1406.0 pg/mLCritically icyn473.0-986.0The [facility] SystemComment on above: Performed By: #### CBC #### [facility] [address] [place] [address] Dr. Jose David ShanksFOLATE19.00 ng/mLNormal8.60-58.90The [facility] SystemComment on above:Performed By: #### CBC #### [facility] [address] [place] [address] Dr. Jose David AllenC AUTO DIFFon 63-49-7426NNHW #0.0 103/ulNormal0.0-0.1The [facility] SystemComment on above:Performed By: #### CBC #### [facility] [address] [place] [address] Dr. Jose David ShanksBasophils/100 WBC (Bld)0.6 %Normal0.2-2.0The [facility] Comment on above:Performed By: #### CBC #### [facility] [address] [place] [address] Dr. Jose David Devries #0.1 103/ulNormal0.0-0.7The [facility] SystemComment on above: Performed By: #### CBC #### [facility] [address] [place] [address] Dr. Jose David Vickersosinophils/100 WBC (Bld)2.7 %Normal0.9-7.0The [facility] Comment on above:Performed By: #### CBC #### [facility] [address] [place] [address] Dr. Jose David Vickersrythrocyte distribution width (RBC) [Ratio]13.5 %Hdvqfs36.0-15.0 The [facility] SystemComment on above:Performed By: #### CBC #### [facility] [address] [place] [address] Dr. Jose David ShanksHematocrit (Bld) [Volume fraction]30.0 %Critically low36.0-48.0 The [facility] SystemComment on above:Performed By: #### CBC #### [facility] [address] [address] [address] Jose David ShanksHemoglobin (Bld) [Mass/Vol]10.0 g/dLCritically low12.0-16.0The [facility] SystemComment on above:Performed By: #### CBC #### [facility] [address] [place] [address] Dr. Jose David Guerrero #0.02 10e3/ulNormal0.00-0.03The [facility] SystemComment on above:Performed By: #### CBC #### [facility] [address] [place] [address] Dr. Jose David Guerrero %0.4 %Normal0.0-0.5The [facility] SystemComment on above: Performed By: #### CBC #### [facility] [address] [place] [address] Dr. Jose David Rolon #0.9 103/ulCritically low1.2-3.8The [facility] Comment on above:Performed By: #### CBC #### [facility] [address] [place] [address] Dr. Jose David Anthonyhocytes/100 WBC (Bld)19.3 %Critically low20.5-60.0The [facility] SystemComment on above:Performed By: #### CBC #### [facility] [address] [place] [address] Dr. Jose David MazariegosUAL DIFF REQNONormalThe [facility] SystemComment on above: Performed By: #### CBC #### [facility] [address] [place] [address] Dr. Jose David Turner (RBC) [Entitic mass]29.3 tzVnravq95.7-34.0The [facility] SystemComment on above:Performed By: #### CBC #### [facility] [address] [place] [address] Dr. Jose David Turner (RBC) [Mass/Vol]33.3 g/cMVzzmrn24.9-35.2The [facility] SystemComment on above:Performed By: #### CBC #### [facility] [address] [address] [address] Jose David TurnerV (RBC) [Entitic vol]88.0 uJSdazvr58.0-99.0The [facility] SystemComment on above:Performed By: #### CBC #### [facility] [address] [address] [address] Jose David Horton #0.4 103/ulNormal0.3-0.8The [facility] SystemComment on above:Performed By: #### CBC #### [facility] [address] [place] [address] Dr. Jose David Olivoocytes/100 WBC (Bld)8.3 %Normal1.7-12.0The [facility] Comment on above:Performed By: #### CBC #### [facility] [address] [place] [address] Dr. Jose David Mix #3.3 103/ulNormal1.4-6.5The [facility] SystemComment on above:Performed By: #### CBC #### [facility] [address] [place] [address] Dr. Jose David Herndonutrophils/100 WBC (Bld)68.7 %Didqtp76.0-75.0The [facility] Hospitalment on above:Performed By: #### CBC #### [facility] [address] [place] [address] Dr. Jose David Carmichaellet mean volume (Bld) [Entitic vol]9.9 fLNormal9.5-13.5The [facility] SystemComment on above:Performed By: #### CBC #### [facility] [address] [place] [address] Dr. Jose David ShanksPLT259 103/djMaisew880-593Mna [facility] SystemComment on above: Performed By: #### CBC #### [facility] [address] [place] [address] Dr. Jose David ShanksRBC3.41 106/ulCritically low4.20-5.40The [facility] HospitalComment on above:Performed By: #### CBC #### [facility] [address] [address] [address] Jose David ShanksWBC4.8 103/ulNormal4.0-11.0The [facility] SystemComment on above: Performed By: #### CBC #### [facility] [address] [address] [address] Jose David ShanksPROF CHEM 8 (BAS METB)on 08-30-0426Gemdt gap [Moles/Vol]11.7 mmol/LNormalThe [facility] SystemComment on above:Performed By: #### LACT #### [facility] [address] [address] [address] Jose David ShanksCalcium [Mass/Vol]8.6 mg/dLNormal8.5-10.1The [facility] Comment on above:Performed By: #### LACT #### [facility] [address] [place] [address] Dr. Jose David ShanksChloride [Moles/Vol]107 mmol/OJtuifq19-441Aal [facility] Comment on above:Performed By: #### LACT #### [facility] [address] [address] [address] Jose David ShanksCO2 [Moles/Vol]30.9 mmol/IFxffrs39.0-32.0The [facility] Comment on above:Performed By: #### LACT #### [facility] [address] [address] [address] Jose David ShanksCreatinine [Mass/Vol]1.04 mg/dLCritically high0.55-1.02The [facility] Hospitalment on above:Performed By: #### LACT #### [facility] [address] [address] [address] Jose David VickersGFR-AF YEMENI>60Normal>=60The [facility] SystemComment on above:Performed By: #### LACT #### [facility] [address] [place] [address] Dr. Jose David VickersGFR-NON AF TUPRIWNK57 mL/min/1.12v3Eolimkyuyq low>=60The [facility] HospitalComment on above:Performed By: #### LACT #### [facility] [address] [address] [address] Jose David ShanksGlucose [Mass/Vol]97 mg/nJDmkjlc95-751Ydj [facility] Comment on above:Performed By: #### LACT #### [facility] [address] [address] [address] Jose David ShanksPotassium [Moles/Vol]3.6 mmol/LNormal3.5-5.1[facility] Comment on above:Performed By: #### LACT #### [facility] [address] [address] [address] Jose David ShanksSodium [Moles/Vol]146 mmol/LCritically zuha256-302Vus [facility] SystemComment on above:Performed By: #### LACT #### [facility] [address] [address] [address] Jose David ShanksUrea nitrogen [Mass/Vol]17.0 mg/dLNormal7.0-18.0The [facility] SystemComment on above:Performed By: #### LACT #### [facility] [address] [address] [address] Jose David Rubio nitrogen/Creatinine [Mass ratio]16.3 mg/mgNormalThe [facility] SystemComment on above:Performed By: #### LACT #### [facility] [address] [place] [address] Dr. Jose David ShanksXR CHEST 2 Von 71-60-1559MF CHEST 2 VHISTORY: 13-uksa-rzayvn referred for shortness of breath. COMPARISON: 02-08-2023. [...] Electronically authenticated by: EDWARD MENA Date: 2023-02-09 15:56[facility] Health MiamisburgBNPon 07-54-6799Npfdgghtqwe peptide B (Bld) [Mass/Vol]1007.0 pg/mLNormal<=1,800.0[facility] CenterComment on above:Performed By: #### BNP #### [facility] [address] [place] [address] Dr. Jose David Tian TALI 3-6on 41-66-7166ZC [Catalytic activity/Vol]29 U/L Nxmgfm56-522Vuz [facility] SystemComment on above:Performed By: #### CMREP #### [facility] [address] [place] [address] Dr. Jose David Jacinto.MB [Mass/Vol]0.90 ng/mLNormal<=3.60[facility] Comment on above:Performed By: #### CMREP #### [facility] [address] [place] [address] Dr. Jose David JamesOP69.4 pg/mLCritically high4.0-51.3The [facility] Comment on above:Result Comment: CUT-OFF POINTS HAVE BEEN ESTABLISHED BASED ON THE FOURTH UNIVERSAL DEFINITIONS OF MYOCARDIAL INFARCTION. THE UPPER REFERENCE LIMIT (URL) OF TROPONIN, DEFINED THE 99TH PERCENTILE OF cTnI DISTRIBUTION IN A REFERENCE POPULATION, HAS BEEN CONFIRMED THE DECISION THRESHOLD FOR [place] DIAGNOSIS.Performed By: #### CMREP #### [facility] [address] [place] [address] Dr. Jose David Jacinto [Catalytic activity/Vol]23 U/LCritically bvi51-893GzuAdams County Regional Medical CenterComment on above:Performed By: #### CMREP #### [facility] [address] [place] [address] Dr. Jose David Jacinto.MB [Mass/Vol]ng/mLNormal<=3.60The [facility] SystemComment on above:Performed By: #### CMREP #### [facility] [address] [place] [address] Dr. Jose David JamesOP72.0 pg/mLCritically high4.0-51.3TParma Community General [facility] Comment on above:Result Comment: CUT-OFF POINTS HAVE BEEN ESTABLISHED BASED ON THE FOURTH UNIVERSAL DEFINITIONS OF MYOCARDIAL INFARCTION. THE UPPER REFERENCE LIMIT (URL) OF TROPONIN, DEFINED THE 99TH PERCENTILE OF cTnI DISTRIBUTION IN A REFERENCE POPULATION, HAS BEEN CONFIRMED THE DECISION THRESHOLD FOR NV DIAGNOSIS.Performed By: #### CMREP #### [facility] [address] [place] [address] Dr. Jose David Tian TALI ADMITon 12-39-1577KL [Catalytic activity/Vol]31 U/L Xardue30-101HxfAdams County Regional Medical CenterComment on above:Performed By: #### CMADM, BMP #### [facility] [address] [place] [address] Dr. Jose David Jacinto.MB [Mass/Vol]ng/mLNormal<=3.60The [facility] SystemComment on above:Performed By: #### CMADM, BMP #### [facility] [address] [place] [address] Dr. Jose David JamesOP26.3 pg/mLNormal4.0-51.3The [facility] SystemComment on above:Result Comment: CUT-OFF POINTS HAVE BEEN ESTABLISHED BASED ON THE FOURTH UNIVERSAL DEFINITIONS OF MYOCARDIAL INFARCTION. THE UPPER REFERENCE LIMIT (URL) OF TROPONIN, DEFINED THE 99TH PERCENTILE OF cTnI DISTRIBUTION IN A REFERENCE POPULATION, HAS BEEN CONFIRMED THE DECISION THRESHOLD FOR [place] DIAGNOSIS.Performed By: #### CMADM, BMP #### [facility] [address] [place] [address] Dr. Jose David RenO52 ng/mLNormal9-82The [facility] SystemComment on above: Performed By: #### CMADM, BMP #### [facility] [address] [place] [address] Dr. Jose David Viera AUTO DIFFon 03-18-0355JFIG #0.0 103/ulNormal0.0-0.1The [facility] SystemComment on above:Performed By: #### LACT #### [facility] [address] [place] [address] Dr. Jose David ShanksBasophils/100 WBC (Bld)0.3 %Normal0.2-2.0The [facility] Comment on above:Performed By: #### LACT #### [facility] [address] [address] [address] Jose David Devries #0.1 103/ulNormal0.0-0.7The [facility] SystemComment on above: Performed By: #### LACT #### [facility] [address] [place] [address] Dr. Jose David Vickersosinophils/100 WBC (Bld)0.5 %Critically low0.9-7.0The [facility] SystemComment on above:Performed By: #### LACT #### [facility] [address] [place] [address] Dr. Jose David Vickersrythrocyte distribution width (RBC) [Ratio]13.4 %Ubevgs63.0-15.0 The [facility] SystemComment on above:Performed By: #### LACT #### [facility] [address] [place] [address] Dr. Jose David ShanksHematocrit (Bld) [Volume fraction]33.0 %Critically low36.0-48.0 The [facility] SystemComment on above:Performed By: #### LACT #### [facility] [address] [place] [address] Dr. Jose David ShanksHemoglobin (Bld) [Mass/Vol]11.1 g/dLCritically low12.0-16.0The [facility] SystemComment on above:Performed By: #### LACT #### [facility] [address] [place] [address] Dr. Jose David Guerrero #0.06 10e3/ulCritically high0.00-0.03The [facility] Comment on above:Performed By: #### LACT #### [facility] [address] [place] [address] Dr. Jose David Guerrero %0.5 %Normal0.0-0.5The [facility] on above: Performed By: #### LACT #### [facility] [address] [address] [address] Jose David Rolon #0.8 103/ulCritically low1.2-3.8The [facility] Comment on above:Performed By: #### LACT #### [facility] [address] [place] [address] Dr. Jose David Allenmphocytes/100 WBC (Bld)7.0 %Critically low20.5-60.0The [facility] on above:Performed By: #### LACT #### [facility] [address] [place] [address] Dr. Jose David Donovan DIFF REQNONormalThe [facility] on above: Performed By: #### LACT #### [facility] [address] [place] [address] Dr. Jose David Turner (RBC) [Entitic mass]29.6 kpWywpbn98.7-34.0The [facility] on above:Performed By: #### LACT #### [facility] [address] [place] [address] Dr. Jose David Turner (RBC) [Mass/Vol]33.6 g/oNBmdnnv74.9-35.2The [facility] on above:Performed By: #### LACT #### [facility] [address] [place] [address] Dr. Jose David Turner (RBC) [Entitic vol]88.0 mPDzewjm81.0-99.0The [facility] on above:Performed By: #### LACT #### [facility] [address] [place] [address] Dr. Jose David Horton #0.6 103/ulNormal0.3-0.8The [facility] on above:Performed By: #### LACT #### [facility] [address] [place] [address] Dr. Jose David Olivoocytes/100 WBC (Bld)5.4 %Normal1.7-12.0The [facility] Comment on above:Performed By: #### LACT #### [facility] [address] [address] [address] Jose David Mix #9.9 103/ulCritically high1.4-6.5The [facility] Comment on above:Performed By: #### LACT #### [facility] [address] [place] [address] Dr. Jose David Herndonutrophils/100 WBC (Bld)86.3 %Critically high43.0-75.0The [facility]Comment [facility] above:Performed By: #### LACT #### [facility] [address] [place] [address] Dr. Jose David ShanksPlatelet mean volume (Bld) [Entitic vol]10.1 fLNormal9.5-13.5The [facility] on above:Performed By: #### LACT #### [facility] [address] [place] [address] Dr. Jose David ShanksPLT333 103/emPvakbk512-296Bsr [facility] HospitalComment on above: Performed By: #### LACT #### [facility] [address] [place] [address] Dr. Jose David ShanksRBC3.75 106/ulCritically low4.20-5.40The [facility] on above:Performed By: #### LACT #### [facility] [address] [place] [address] Dr. Jose David ShanksWBC11.5 103/ulCritically high4.0-11.0The [facility] on above:Performed By: #### LACT #### [facility] [address] [place] [address] Dr. Jose David Scott BLOODon 95-36-4457Yngvjhyoiqo examination of blood, cultureCulture Observations: NO GROWTH AT 5 DAYS.NormalThe [facility] on above:Performed By: #### LACT #### [facility] [address] [place] [address] Dr. Jose David ShanksMicroscopic examination of blood, cultureCulture Observations: NO GROWTH AT 5 DAYS.NormalThe [facility] HospitalComment on above:Performed By: #### LACT #### [facility] [address] [address] [address] Jose David PinoCARDIO M/2D COMPLETEon [id number] M/2D COMPLETE Patient: LASHAUN JOAQUIN Exam Date: 02/08/2023 : 1940 Gender:F Ordering : DR ALLI SCOTT . Admission #: [id number] Family : DR NATHAN HATHAWAY D.O. Order #: [id number] CLICK HERE TO VIEW EXAM ECHOCARDIOGRAM REPORT [...] by: Jaquan Payne M.D. on 02/09/2023 at 19:11[facility]burgLACTATE/LACTIC ACIDon 82-08-7107Jywjxtj [Moles/Vol]1.4 mmol/LNormal 0.4-2.0The [facility] on above:Performed By: #### LACT #### [facility] [address] [address] [address] Jose David ShanksLactate [Moles/Vol]1.4 mmol/LNormal0.4-2.0The [facility] Comment on above:Performed By: #### LACT #### [facility] [address] [address] [address] Jose David BarthF CHEM 8 (BAS METB)on 64-62-8438Upfee gap [Moles/Vol]11.9 mmol/LNormalThe [facility]Comment on above:Performed By: #### CMADM, BMP #### [facility] [address] [place] [address] Dr. Jose David ShanksCalcium [Mass/Vol]9.0 mg/dLNormal8.5-10.1The [facility] Comment on above:Performed By: #### CMADM, BMP #### [facility] [address] [address] [address] Jose David ShanksChloride [Moles/Vol]105 mmol/OTutnrl22-216Thh [facility] Comment on above:Performed By: #### CMADM, BMP #### [facility] [address] [address] [address] Jose David ShanksCO2 [Moles/Vol]28.2 mmol/ISxfefo63.0-32.0The [facility] Comment on above:Performed By: #### CMADM, BMP #### [facility] [address] [place] [address] Dr. Jose David ShanksCreatinine [Mass/Vol]0.99 mg/dLNormal0.55-1.02The [facility] on above:Performed By: #### CMADM, BMP #### [facility] [address] [place] [address] Dr. Jose David VickersGFR-AF YEMENI>60Normal>=60The [facility] on above:Performed By: #### CMADM, BMP #### [facility] [address] [address] [address] Jose David VickersGFR-NON AF WURRMJUF34 mL/min/1.36f1Drojvtvzgi low>=60The [facility] on above:Performed By: #### CMADM, BMP #### [facility] [address] [address] [address] Jose David ShanksGlucose [Mass/Vol]123 mg/dLCritically ulvd05-554Dsp [facility] on above:Performed By: #### CMADM, BMP #### [facility] [address] [address] [address] Jose David ShanksPotassium [Moles/Vol]4.1 mmol/LNormal3.5-5.1The [facility] Comment on above:Performed By: #### CMADM, BMP #### [facility] [address] [address] [address] Jose David ShanksSodium [Moles/Vol]141 mmol/MRxjvgh545-258Xxo [facility] Comment on above:Performed By: #### CMADM, BMP #### [facility] [address] [address] [address] Jose David ShanksUrea nitrogen [Mass/Vol]14.0 mg/dLNormal7.0-18.0The [facility] on above:Performed By: #### CMADM, BMP #### [facility] [address] [address] [address] Jose David Rubio nitrogen/Creatinine [Mass ratio]14.1 mg/mgNormalThe [facility] on above:Performed By: #### CMADM, BMP #### [facility] [address] [address] [address] Jose David ShanksRESPIRATORY PANEL PLUSon 40-56-2541SuronqohzaTee detectedNormal NOT DETECTEDThe [facility] SystemComment on above:Performed By: #### RSPLUS #### [facility] [address] [address] [address] Jose David Mccoy. ParapertusisNot detectedNormalNOT DETECTEDThe [facility] on above:Performed By: #### RSPLUS #### [facility] [address] [address] [address] Jose David Mccoy. PertussisNot detectedNormalNOT DETECTEDThe [facility] Comment on above:Performed By: #### RSPLUS #### [facility] [address] [address] [address] Jose David ShanksChlamydia PneumoniaeNot detectedNormalNOT DETECTEDThe [facility] on above:Performed By: #### RSPLUS #### [facility] [address] [address] [address] Jose David ShanksCoronavirus 229ENot detectedNormalNOT DETECTEDThe [facility] on above:Performed By: #### RSPLUS #### [facility] [address] [address] [address] Jose David ShanksCoronavirus WOY5Zrx detectedNormalNOT DETECTEDThe [facility] on above:Performed By: #### RSPLUS #### [facility] [address] [address] [address] Jose David ShanksCoronavirus FG04Okr detectedNormalNOT DETECTEDThe [facility] on above:Performed By: #### RSPLUS #### [facility] [address] [address] [address] Jose David ShanksCoronavirus PS61Fnr detectedNormalNOT DETECTEDThe [facility]Comment on above:Performed By: #### RSPLUS #### [facility] [address] [address] [address] Jose David Rangel A H1Not detectedNormalNOT DETECTEDThe [facility] Comment on above:Performed By: #### RSPLUS #### [facility] [address] [address] [address] Jose David Kat H1 2009Not detectedNormalNOT DETECTEDThe [facility] on above:Performed By: #### RSPLUS #### [facility] [address] [address] [address] Yilan ChangInfluenza A H3Not detectedNormalNOT DETECTEDThe [facility] Comment on above:Performed By: #### RSPLUS #### [facility] [address] [address] [address] Jose David Rangel BNot detectedNormalNOT DETECTEDThe [facility] Comment on above:Performed By: #### RSPLUS #### [facility] [address] [address] [address] Jose David AbdullahineumovirusNot detectedNormalNOT DETECTEDThe [facility] on above:Performed By: #### RSPLUS #### [facility] [address] [address] [address] Jose David Ha. PneumoniaeNot detectedNormalNOT DETECTEDThe [facility] on above:Performed By: #### RSPLUS #### [facility] [address] [address] [address] Jose David Del Toro 1Not detectedNormalNOT DETECTEDThe [facility] on above:Performed By: #### RSPLUS #### [facility] [address] [address] [address] Jose David Del Toro 2Not detectedNormalNOT DETECTEDThe [facility] on above:Performed By: #### RSPLUS #### [facility] [address] [address] [address] Jose David Del Toro 3Not detectedNormalNOT DETECTEDThe [facility] on above:Performed By: #### RSPLUS #### [facility] [address] [address] [address] Jose David Del Toro 4Not detectedNormalNOT DETECTEDThe [facility] on above:Performed By: #### RSPLUS #### [facility] [address] [address] [address] Jose David ShanksRhmelina/EnterovirusNot detectedNormalNOT DETECTEDThe [facility] on above:Performed By: #### RSPLUS #### [facility] [address] [place] [address] Dr. Jose David Ruff Header 1RESPIRATORY PANEL: VIRUSESK[facility]tering Health [facility] Comment on above:Performed By: #### RSPLUS #### [facility] [address] [place] [address] Dr. Jose David Ruff Header 2RESPIRATORY PANEL: BACTERIANoFairfield Medical CenterComment on above:Performed By: #### RSPLUS #### [facility] [address] [place] [address] Dr. Jose David ShanksRSVNot detectedNormalNOT DETECTEDThe [facility] on above:Performed By: #### RSPLUS #### [facility] [address] [place] [address] Dr. Jose David Gonzalez-CoV-2 (COVID-19) RNA ZABRINA+probe Ql (Unsp spec)Not detected NormalNOT DETECTEDThe [facility] on above:Performed By: #### RSPLUS #### [facility] [address] [place] [address] Dr. Jose David ShanksXR CHEST 1 Von [id number] CHEST 1 VEXAM: XR CHEST 1 V [...] Electronically authenticated by: Petra SAHU Date: 2023-02-08 05:[address] [place], [place] [address]MG MAMM SCREEN 3D SCARLETT CADon [id number] MAMM SCREEN 3D SCARLETT CAD Patient: LASHAUN JOAQUIN Exam Date: 01/08/2023 : 1940 Gender:F Ordering : DR NATHAN HATHAWAY D.O. Admission #: [id number] Family : Order #: [id number] CLICK HERE TO VIEW EXAM RADIOLOGY REPORT [...] lung cancer at age 62. LOCATION: The [facility] BREAST COMPOSITION: Extremely dense, which lowers the [...] by: William Dominguez MD on 01/08/2023 at 11:24[facility] HEAD_NECKon [id number] HEAD_NECKEXAM: US HEAD_NECK HISTORY: Localized enlarged lymph nodes COMPARISON: [...] Electronically authenticated by: WILLIAM DOMINGUEZ Date: 2022-09-11 17:07[facility] Abdomen and Pelvis W contrast Rivka [id number]: 1. Stable CT of the abdomen and [...] any questions regarding this interpretation, please call [phone]. If you are unable to reach us at the number above, please feel free to contact [facility] at [phone].DIVISION OF RADIOLOGY* * *Final Report* * * DATE OF EXAM: Aug 28 2022 1:36PM [facility] 0530 - CT ABD/PEL W [...] chest CT performed will be reported separately. Slide Fastener Repairer (topogram) images: No additional findings. DIVISION OF RADIOLOGYProvider, [facility] [place] - 08/28/2022 * * *Final Report* * * DATE OF EXAM: Aug 28 2022 1:36PM [facility] 0530 - CT ABD/PEL W [...] chest CT performed will be reported separately. Slide Fastener Repairer (topogram) images: No additional findings. IMPRESSION IMPRESSION: [...] any questions regarding this interpretation, please call [phone]. If you are unable to reach us at the number above, please feel free to contact [facility] at [phone]. [facility] Abdomen and Pelvis W contrast IVOrdered By: [facility] Provider on [id number] [facility] Chest W contrast Rivka [id number]: 1. Interval resolution of previously described right [...] any questions regarding this interpretation, please call [phone]. If you are unable to reach us at the number above, please feel free to contact [facility] at [phone].DIVISION OF RADIOLOGY* * *Final Report* * * DATE OF EXAM: Aug 28 2022 1:36PM [facility] 0539 - CT CHEST W [...] was performed concurrently and is reported separately. Slide Fastener Repairer (topogram) images: No additional findings. DIVISION OF RADIOLOGYProvider, [facility] [place] - 08/28/2022 * * *Final Report* * * DATE OF EXAM: Aug 28 2022 1:36PM [facility] 0539 - CT CHEST W [...] was performed concurrently and is reported separately. Slide Fastener Repairer (topogram) images: No additional findings. IMPRESSION IMPRESSION: [...] any questions regarding this interpretation, please call [phone]. If you are unable to reach us at the number above, please feel free to contact [facility] at [phone]. [facility] HospitalNo Panel Informationon [id number] Study observation (narrative)[facility] HospitalCovid-19 PCR (CVDTBH)on 05-04-2022 SARS-CoV-2 (COVID-19) RNA ZABRINA+probe Ql (Unsp spec)DetectedCritically abnormalNOT DETECTEDThe [facility] on above:Result Comment: This test is not yet approved or cleared by the [place] FDA. When there are no FDA-approved or cleared tests available, and other criteria are met, FDA can make tests available under an emergency access mechanism called an Emergency Use Authorization (EUA). The EUA for this test is supported by the [place] of Health and Human Service's (HHS's) declaration [...] longer be used).Performed By: #### CVDTBH #### [facility] [address] [place] [address] Dr. Jose David Shanks Vital Signs Date TimeVital SignValuePerforming TjpujbuiuAmgtokcm83-30-6174 11:43-0400Body mzuqfc213.02 cmBenjamin Ball DO Work Phone: 1(901)[facility] [place], [place] 9835310-24-2025 11:43-0400 Body mass index (BMI) [Ratio]34.7 kg/q1Qvsblawa Ball DO Work Phone: 1(607)[address] [place], [place] 4391310-24-2025 11:43-0400 Body powxzx58.9 kgBenjamin Ball DO Work Phone: 1(036)[address] [place], [place] 4391310-24-2025 11:43-0400 Diastolic blood lyrrsnuj01 mm[Hg]Nathan Ball DO Work Phone: 1(422)[address] [place], [place] 4391310-24-2025 11:43-0400 Heart rate62 /minBenjamin Ball DO Work Phone: 1(982)[address] [place], [place] 4391310-24-2025 11:43-0400 Respiratory rate14 /minBenjamin Ball DO Work Phone: 1(601)[address] [place], [place] 4391310-24-2025 11:43-0400 SaO2% (BldA) [Mass fraction]98 %Nathan Ball DO Work Phone: 1(112)[address] [place], [place] 4391310-24-2025 11:43-0400 Systolic blood mrthudhh013 mm[Hg]Nathan Ball DO Work Phone: 1(229)[address] [place], [place] 4391310-07-2025 10:44-0400 Body wcmlyi765.02 cmBenjamin Ball DO Work Phone: 1(656)[address] [place], [place] 4391310-07-2025 10:44-0400 Body mass index (BMI) [Ratio]34.5 kg/t5Vogxjrgz Ball DO Work Phone: 1(936)[address] [place], [place] 4391310-07-2025 10:44-0400 Body aoxvrimosrd14.6 [degF]Nathan Ball DO Work Phone: 1(401)[address] [place], [place] 4391310-07-2025 10:44-0400 Body .45 kgBenjamin Ball DO Work Phone: 1419)[address] [place], [place] 4391310-07-2025 10:44-0400 Diastolic blood tvfsxhha56 mm[Hg]Nathan Ball DO Work Phone: 1419)[address] [place], [place] 4391310-07-2025 10:44-0400 Heart rate69 /minBenjamin Ball DO Work Phone: 1419)[address] [place], [place] 4391310-07-2025 10:44-0400 SaO2% (BldA) [Mass fraction]96 %Nathan Ball DO Work Phone: 1419)[address] [place], [place] 4391310-07-2025 10:44-0400 Systolic blood nirpjcul997 mm[Hg]Nathan Ball DO Work Phone: 1419)[address] [place], [place] 4391309-23-2025 15:53-0400 Body .37 cmBenjamin Ball DO Work Phone: 1419)[address] [place], [place] 4391309-23-2025 15:53-0400 Body mass index (BMI) [Ratio]31.9 kg/n8Xkezgdxm Ball DO Work Phone: 1419)[address] [place], [place] 4391309-23-2025 15:53-0400 Body cacfnx23.45 kgBenjamin Ball DO Work Phone: 1(867)[address] [place], [place] 4391309-23-2025 15:53-0400 Diastolic blood geofwmcl99 mm[Hg]Nathan Ball DO Work Phone: 1(793)[address] [place], [place] 4391309-23-2025 15:53-0400 Diastolic blood cwjuoran83 mm[Hg]Nathan Ball DO Work Phone: 1(181)[facility] [place], [place] 9835309-23-2025 15:53-0400 Heart rate76 /minBenjamin Ball DO Work Phone: 1419)[address] [place], [place] 4391309-23-2025 15:53-0400 Respiratory rate12 /minBenjamin Ball DO Work Phone: 1(828)[address] [place], [place] 4391309-23-2025 15:53-0400 Systolic blood yjfcvrwt942 mm[Hg]Nathan Ball DO Work Phone: [facility]09-23-2025 15:53-0400 Systolic blood naotstcc529 mm[Hg]Nathan Hathaway DO Work Phone: [facility]09-10-2025 10:09-0400 Diastolic blood abvqagev24 mm[Hg]Paolo Casillas APRN.DIE ENGRAVING SUPERVISOR Work Phone: [facility] HospitalComment on above:recheck BP [facility] 07-08-2025 10:09-0400Systolic blood jarerflj624 mm[Hg]Paolo Casillas APRN.DIE ENGRAVING SUPERVISOR Work Phone: [facility] HospitalComment on above:recheck BP [facility] 07-08-2025 10:01-0400Body azufme481.4 cmPaolo Casillas APRN.DIE ENGRAVING SUPERVISOR Work Phone: [facility]09-10-2025 10:01-0400Body mass index (BMI) [Ratio]33.15 kg/z2KrfryPaolo Casillas APRN.DIE ENGRAVING SUPERVISOR Work Phone: [facility]09-10-2025 10:01-0400Body temperature 96.8 [degF]Paolo Casillas APRN.DIE ENGRAVING SUPERVISOR Work Phone: [facility]09-10-2025 10:01-0400Body tpouhx19.8 kgPaolo Casillas APRN.DIE ENGRAVING SUPERVISOR Work Phone: [facility]09-10-2025 10:01-0400Heart rate66 /min Paolo Casillas APRN.DIE ENGRAVING SUPERVISOR Work Phone: [facility]09-10-2025 10:01-0400Respiratory rate 18 /minPaolo Casillas APRN.DIE ENGRAVING SUPERVISOR Work Phone: [facility]09-10-2025 10:01-8933KpW4% (BldA) [Mass fraction]95 %Paolo Casillas APRN.DIE ENGRAVING SUPERVISOR Work Phone: [facility]08-22-2025 09:31-0400Body ixujkb819.37 cmBenjuanairam Hathaway DO Work Phone: [address] [place], [place] 7974408-22-2025 09:31-0400 Body mass index (BMI) [Ratio]32.4 kg/r5Fcrjecgm Ball DO Work Phone: 1(575)[address] [place], [place] 4391308-22-2025 09:31-0400 Body .81 kgBenjamin Ball DO Work Phone: 1(042)[address] [place], [place] 4391308-22-2025 09:31-0400 Diastolic blood yqjumzwi93 mm[Hg]Nathan Ball DO Work Phone: 1(389)[address] [place], [place] 4391308-22-2025 09:31-0400 Heart rate62 /minBenjamin Ball DO Work Phone: 1(393)[address] [place], [place] 4391308-22-2025 09:31-0400 Respiratory rate14 /minBenjamin Ball DO Work Phone: 1(383)[address] [place], [place] 4391308-22-2025 09:31-0400 SaO2% (BldA) [Mass fraction]96 %Nathan Ball DO Work Phone: 1(597)[address] [place], [place] 4391308-22-2025 09:31-0400 Systolic blood jqdvyzlp482 mm[Hg]Nahtan Ball DO Work Phone: 1(561)[address] [place], [place] 4391307-22-2025 15:33-0400 Body eycgyl881.37 cmBenjamin Ball DO Work Phone: 1(053)[address] [place], [place] 4391307-22-2025 15:33-0400 Body mass index (BMI) [Ratio]31.8 kg/k4Ucbzvbsa Ball DO Work Phone: 1(027)[address] [place], [place] 4391307-22-2025 15:33-0400 Body ybrkbh61.13 kgBenjamin Ball DO Work Phone: 1(890)[address] [place], [place] 4391307-22-2025 15:33-0400 Diastolic blood iuulqjis17 mm[Hg]Nathan Ball DO Work Phone: 1(328)[address] [place], [place] 4391307-22-2025 15:33-0400 Heart rate67 /minBenjamin Ball DO Work Phone: 1(419)[address] [place], [place] 4391307-22-2025 15:33-0400 Respiratory rate14 /minBenjamin Ball DO Work Phone: 1419)[address] [place], [place] 4391307-22-2025 15:33-0400 SaO2% (BldA) [Mass fraction]96 %Nathan Ball DO Work Phone: 1419)[address] [place], [place] 4391307-22-2025 15:33-0400 Systolic blood jkpyvijb869 mm[Hg]Nathan Ball DO Work Phone: 1(419)[address] [place], [place] 4391305-22-2025 11:22-0400 Body sqcovo347.37 cmBenjamin Ball DO Work Phone: 1419)[address] [place], [place] 4391305-22-2025 11:22-0400 Body mass index (BMI) [Ratio]31.6 kg/d1Yphlqkss Ball DO Work Phone: 1419)[address] [place], [place] 4391305-22-2025 11:22-0400 Body mblcby24.54 kgBenjamin Ball DO Work Phone: 1419)[address] [place], [place] 4391305-22-2025 11:22-0400 Diastolic blood tooxyunk73 mm[Hg]Nathan Ball DO Work Phone: 1(006)[address] [place], [place] 4391305-22-2025 11:22-0400 Heart rate66 /minBenjamin Ball DO Work Phone: 1419)[address] [place], [place] 4391305-22-2025 11:22-0400 Respiratory rate12 /minBenjamin Ball DO Work Phone: 1419)[address] [place], [place] 4391305-22-2025 11:22-0400 SaO2% (BldA) [Mass fraction]97 %Nathan Ball DO Work Phone: 1419)[address] [place], [place] 4391305-22-2025 11:22-0400 Systolic blood awxgdhli050 mm[Hg]Nathan Ball DO Work Phone: 1419)[address] [place], [place] 4391305-20-2025 10:42-0400 Body .1 [facility] [address] [place], [place] 5487405-20-2025 10:42-0400 Body mass index (BMI) [Ratio]33.28 kg/m[address] 03-17-2025 10:42-0400Body dxwbfu99.[address] 03-17-2025 10:42-0400Diastolic blood vgpugasn12 mm[Hg][address]05-20-2025 10:42-0400Systolic blood ywyvrycq030 mm[Hg][address]05-16-2025 13:25-0400Body .37 cm Nathan Ball DO Work Phone: 1(563)[address]05-16-2025 13:25-0400 Body mass index (BMI) [Ratio]33 kg/j5Lbyqtgiq Ball DO Work Phone: 1(078)[address]05-16-2025 13:25-0400 Body mpbuyh96.28 kgBenjamin Ball DO Work Phone: 1(534)222-[address] [place], [place] 9835305-16-2025 13:25-0400 Diastolic blood ijefjrbr56 mm[Hg]Nathan Ball DO Work Phone: 1(843)218-[address] [place], [place] 9835305-16-2025 13:25-0400 Heart rate90 /minBenjamin Ball DO Work Phone: 1(960)[address]05-16-2025 13:25-0400 Respiratory rate12 /minBenjamin Ball DO Work Phone: 1(524)196-[address] [place], [place] 9835305-16-2025 13:25-0400 Systolic blood ittaybwa265 mm[Hg]Nathan Ball DO Work Phone: 1(846)[address]04-30-2025 08:46-0400 Body .1 cmReyna Esparza MD Work Phone: [facility] HospitalMffhvkqfmb51-78-4695 08:46-0400Body mass index (BMI) [Ratio]32.45 kg/b5AihvkvReyna Esparza MD Work Phone: [facility] HospitalKethkzlzet89-80-9714 08:46-0400Body woepjm79.45 kgReyna Esparza MD Work Phone: [facility] HospitalKtqvzdvtwv88-32-9620 08:46-0400Diastolic blood mm[Hg]Reyna Esparza MD Work Phone: [facility] HospitalSuxmaqmooo47-01-4553 08:46-0400Heart rate72 /min Reyna Esparza MD Work Phone: [facility] HospitalBrceyczpwy80-99-8279 08:46-0400Systolic blood vagfdyfg829 mm[Hg]Reyna Esparza MD Work Phone: [facility] HospitalSieaysnews39-48-3475 10:20-0400Diastolic blood nuxptpfq90 mm[Hg]Nathan Ball DO Work Phone: 1(535)601-[address] [place], [place] 9835304-17-2025 10:20-0400 Heart rate56 /minBenjamin Ball DO Work Phone: 1(297)[facility] [place], [place] 9835304-17-2025 10:20-0400 Respiratory rate18 /minBenjamin Ball DO Work Phone: 1(420)[address] [place], [place] 4391304-17-2025 10:20-0400 SaO2% (BldA) [Mass fraction]97 %Nathan Ball DO Work Phone: 1(360)706-[address] [place], [place] 9835304-17-2025 10:20-0400 Systolic blood yqjvgxbz865 mm[Hg]Nathan Ball DO Work Phone: 1(071)613-[address] [place], [place] 9835304-17-2025 06:29-0400 Body aaxxxk534.1 cmBenjamin Ball DO Work Phone: 1(515)[facility] [place], [place] 9835304-17-2025 06:29-0400 Body vdplweknqts06.3 [degF]Nathan Ball DO Work Phone: 1(188)[facility] [place], [place] 9835304-17-2025 06:29-0400 Body .9 kgBenjamin Ball DO Work Phone: 1(211)[address] [place], [place] 4391303-27-2025 10:20-0400 Body .37 cmBenjamin Ball DO Work Phone: [facility]03-27-2025 10:20-0400 Body mass index (BMI) [Ratio]31.9 kg/d1Jsrnywwi Ball DO Work Phone: [facility]03-27-2025 10:20-0400 Body augbmy32.45 kgBenjamin Ball DO Work Phone: [phone]03-27-2025 10:20-0400 Diastolic blood cctchymu36 mm[Hg]Nathan Ball DO Work Phone: [phone]([phone]03-27-2025 10:20-0400 Heart rate65 /minBenjamin Ball DO Work Phone: 1(858)[phone]03-27-2025 10:20-0400 Respiratory rate12 /minBenjamin Ball DO Work Phone: 1(544)721-13[facility]03-27-2025 10:20-0400 Systolic blood eyhbhffk425 mm[Hg]Nathan Ball DO Work Phone: [phone]([phone]03-17-2025 11:10-0400 Body ihxsmc896.1 cmHolden Rosado SENIOR TECHNICAL BUSINESS ANALYST-DIE ENGRAVING SUPERVISOR Work Phone: [facility]03-17-2025 11:10-0400 Body mass index (BMI) [Ratio]33.28 kg/t4CulzvHolden Rosado SENIOR TECHNICAL BUSINESS ANALYST-DIE ENGRAVING SUPERVISOR Work Phone: [facility]03-17-2025 11:10-0400 Body .72 kgHolden Rosado SENIOR TECHNICAL BUSINESS ANALYST-DIE ENGRAVING SUPERVISOR Work Phone: [facility]03-17-2025 11:10-0400 Diastolic blood atxuytuh11 mm[Hg]Holden Rosado SENIOR TECHNICAL BUSINESS ANALYST-DIE ENGRAVING SUPERVISOR Work Phone: [facility]03-17-2025 11:10-0400 Heart rate60 /Jasbir Rosado SENIOR TECHNICAL BUSINESS ANALYST-DIE ENGRAVING SUPERVISOR Work Phone: [address] [place], [place] 440[address]03-17-2025 11:10-0400 Systolic blood mm[Hg]Holden Rosado SENIOR TECHNICAL BUSINESS ANALYST-DIE ENGRAVING SUPERVISOR Work Phone: [facility]02-18-2025 10:50-0500 Body dvutcy241.37 cmBenjamin Ball DO Work Phone: [phone]04[facility]02-18-2025 10:50-0500 Body mass index (BMI) [Ratio]32 kg/m7Irdpsjau Ball DO Work Phone: 1(828)[address]02-18-2025 10:50-0500 Body ggewjk35.59 kgBenjamin Ball DO Work Phone: 1(343)[address] [place], [place] 4391302-18-2025 10:50-0500 Diastolic blood wtjqquob15 mm[Hg]Nathan Ball DO Work Phone: 1([phone]02-18-2025 10:50-0500 Heart rate56 /minBenjamin Ball DO Work Phone: 1(665)206-[address] [place], [place] 9835302-18-2025 10:50-0500 SaO2% (BldA) [Mass fraction]97 %Nathan Ball DO Work Phone: 1(237)[address]02-18-2025 10:50-0500 Systolic blood uchqrzno866 mm[Hg]Nathan Ball DO Work Phone: 1(283)[address]01-28-2025 13:55-0500 Body sydygp857.1 cmReyna Esparza MD Work Phone: [facility] HospitalVcskblcugr94-99-6370 13:55-0500Body mass index (BMI) [Ratio]32.28 kg/j7LsbwsqReyna Esparza MD Work Phone: 1([phone] HospitalGyhfhvjbvd90-96-1269 13:55-0500Body ximcjv52 kg Reyna Esparza MD Work Phone: [facility] HospitalNffclkucgf14-56-3351 13:55-0500Diastolic blood pibvbaru25 mm[Hg]Reyna Esparza MD Work Phone: [facility] HospitalKqvvfhhiss02-78-4590 13:55-0500Heart rate60 /min Reyna Esparza MD Work Phone: [facility] HospitalZfmejlrcpi74-33-9005 13:55-0500Systolic blood elxwbzqk250 mm[Hg]Reyna Esparza MD Work Phone: [facility] HospitalNirsrmrtsj63-61-5667 13:05-0500Diastolic blood mm[Hg]Nathan Ball DO Work Phone: 1(833)[address] [place], [place] 4391301-20-2025 13:05-0500 Heart rate68 /minBenjamin Ball DO Work Phone: 1(180)[address] [place], [place] 4391301-20-2025 13:05-0500 Respiratory rate16 /minBenjamin Ball DO Work Phone: 1(004)[address] [place], [place] 4391301-20-2025 13:05-0500 SaO2% (BldA) [Mass fraction]94 %Nathan Ball DO Work Phone: 1(048)[address] [place], [place] 4391301-20-2025 13:05-0500 Systolic blood mm[Hg]Nathan Ball DO Work Phone: 1(886)[address] [place], [place] 4391301-20-2025 10:05-0500 Body gujaco283.37 cmBenjamin Ball DO Work Phone: 1(857)[address] [place], [place] 4391301-20-2025 10:05-0500 Body .35 kgBenjamin Ball DO Work Phone: 1(799)[address] [place], [place] 4391312-11-2024 10:40-0500 Body virfxc979.1 cmWilliam Orlando DO Work Phone: [facility]12-11-2024 10:40-0500 Body mass index (BMI) [Ratio]33.12 kg/f2Jjjaosp Orlando DO Work Phone: [facility]12-11-2024 10:40-0500 Body uzgbzf07.27 kgWihelena Orlando DO Work Phone: [facility]12-11-2024 10:40-0500 Diastolic blood mm[Hg]Edinson Perry DO Work Phone: [facility]12-11-2024 10:40-0500 Heart rate78 /Frieda Perry DO Work Phone: [facility]12-11-2024 10:40-0500 Systolic blood udneyadc123 mm[Hg]Edinson Perry DO Work Phone: [facility]11-14-2024 10:19-0500 Body djmqry759.1 [facility]14-2024 10:19-0500Body mass index (BMI) [Ratio]32.3 kg/e2OepnhexyjProtestant Hospital11-14-2024 10:19-0500Body hslgno62.13 kgPro[facility]11-14-2024 10:19-0500Diastolic blood tjgkydxs34 mm[Hg][facility] 09-11-2024 10:19-0500Heart rate63 /min[facility] 09-11-2024 10:19-8600KhI4% (BldA) [Mass fraction]97 %[facility]11-14-2024 10:19-0500Systolic blood dyeznkit372 mm[Hg][facility]08-06-2024 10:54-0400Body .1 cmDO Sedicidodici Work Phone: [facility]08-06-2024 10:54-0400 Body mass index (BMI) [Ratio]26.8 kg/m2DO Nathan KupiKupon Work Phone: [facility]08-06-2024 10:54-0400 Body .02 kgDO Sedicidodici Work Phone: [facility]08-06-2024 10:54-0400 Diastolic blood dpfqexmd00 mm[Hg]DO Nathan KupiKupon Work Phone: [facility]08-06-2024 10:54-0400 Heart rate56 /minDO Nathan Ball Work Phone: [facility]08-06-2024 10:54-0400 Respiratory rate12 /Emerald Hathaway Work Phone: [facility]08-06-2024 10:54-0400 Systolic blood hyaquzpn276 mm[Hg]DO Nathan Hathaway Work Phone: [facility]06-24-2024 10:21-0400 Body mass index (BMI) [Ratio]32.98 kg/y3MqfosHolden Rosado SENIOR TECHNICAL BUSINESS ANALYST-DIE ENGRAVING SUPERVISOR Work Phone: [facility]06-24-2024 10:21-0400 Body hpezga53.9 kgHolden Rosado SENIOR TECHNICAL BUSINESS ANALYST-DIE ENGRAVING SUPERVISOR Work Phone: 5(305)110-[address] [place], [place] 6503206-24-2024 10:21-0400 Diastolic blood mm[Hg]Holden Rosado SENIOR TECHNICAL BUSINESS ANALYST-DIE ENGRAVING SUPERVISOR Work Phone: [facility]06-24-2024 10:21-0400 Heart rate60 /Tetonorth Alonzo SENIOR TECHNICAL BUSINESS ANALYST-DIE ENGRAVING SUPERVISOR Work Phone: [facility]06-24-2024 10:21-0400 Systolic blood lvcbovaz472 mm[Hg]Holden Rosado SENIOR TECHNICAL BUSINESS ANALYST-DIE ENGRAVING SUPERVISOR Work Phone: [facility]05-15-2024 09:27-0400 Diastolic blood mm[Hg]Laura [address] [place] [address] 03-12-2024 09:27-0400Heart rate62 /minEly [address] [place] [address] 03-12-2024 09:27-0400Systolic blood mdxfjrop265 mm[Hg]Laura [address] [place], [place] 8471505-08-2024 11:46-0400Body reraqq787.1 cmHolden Rosado SENIOR TECHNICAL BUSINESS ANALYST-DIE ENGRAVING SUPERVISOR Work Phone: 4(235)588-[address] [place], [place] 6503205-08-2024 11:46-0400 Body mass index (BMI) [Ratio]32.62 kg/b4IedfiHolden Rosado SENIOR TECHNICAL BUSINESS ANALYST-DIE ENGRAVING SUPERVISOR Work Phone: [facility]05-08-2024 11:46-0400 Body wmkulu40.91 kgHolden Rosado SENIOR TECHNICAL BUSINESS ANALYST-DIE ENGRAVING SUPERVISOR Work Phone: [facility]05-08-2024 11:46-0400 Diastolic blood jqhrdzle63 mm[Hg]Holden Rosado SENIOR TECHNICAL BUSINESS ANALYST-DIE ENGRAVING SUPERVISOR Work Phone: [facility]05-08-2024 11:46-0400 Heart rate62 /Jasbir Rosado SENIOR TECHNICAL BUSINESS ANALYST-DIE ENGRAVING SUPERVISOR Work Phone: [facility]05-08-2024 11:46-0400 Systolic blood dyelakmt313 mm[Hg]Holden Rosado SENIOR TECHNICAL BUSINESS ANALYST-DIE ENGRAVING SUPERVISOR Work Phone: [facility]05-01-2024 09:53-0400 Body bvwdje026.1 cmDO Nathan Ball Work Phone: [phone]75[facility]05-01-2024 09:53-0400 Body mass index (BMI) [Ratio]31.9 kg/m2DO Nathan Ball Work Phone: 1(766)090-[address] [place], [place] 9835305-01-2024 09:53-0400 Body avjwbn29.08 kgDO Nathan Ball Work Phone: 1(751)200-[address] [place], [place] 9835305-01-2024 09:53-0400 Diastolic blood zkiqyyzt63 mm[Hg]DO Nathan Ball Work Phone: 1([phone])[phone]05-01-2024 09:53-0400 Heart rate62 /minDO Nathan Ball Work Phone: 1(625)038-[address] [place], [place] 9835305-01-2024 09:53-0400 SaO2% (BldA) [Mass fraction]97 %DO Nathan Ball Work Phone: 1(988)109-[address] [place], [place] 9835305-01-2024 09:53-0400 Systolic blood qjvslouc904 mm[Hg]DO Nathan Ball Work Phone: 1(743)437-[address] [place], [place] 9835304-17-2024 10:30-0400 Body prfigd328.1 cm[facility]04-17-2024 10:30-0400Body mass index (BMI) [Ratio]32.8 kg/a6XcifzbzngProtestant Hospital04-17-2024 10:30-0400Body sjeucj91.35 kgPro[facility]04-17-2024 10:30-0400Diastolic blood mm[Hg][facility] 02-13-2024 10:30-0400Heart rate56 /[facility] 02-13-2024 10:30-8458OtD2% (BldA) [Mass fraction]98 %[facility]04-17-2024 10:30-0400Systolic blood mm[Hg][facility]04-05-2024 11:01-0400Body etbiuh603.1 cm[facility]04-05-2024 11:01-0400Body mass index (BMI) [Ratio]27.3 kg/m5ShznwawigProtestant Hospital04-05-2024 11:01-0400Body zitxwv01.44 kgPro[facility]04-05-2024 11:01-0400Diastolic blood maefuhli16 mm[Hg] [facility]04-05-2024 11:01-0400Heart rate49 /[facility]04-05-2024 11:01-0400Respiratory rate12 /[facility]04-05-2024 11:01-0400Systolic blood mm[Hg] [facility]01-05-2024 11:00-0500Body vgcdaf901.1 cm Nathan Ball Other [employer] Other 01-05-2024 11:00-0500Body mass index (BMI) [Ratio] 31.78 kg/u2Dkjrqred Ball Other [employer] Other 01-05-2024 11:00-0500Body svnlab18.64 kgBenjamin Ball Other [employer] Other 01-05-2024 11:00-0500Diastolic blood szbrogzo24 mm[Hg] Nathan Ball Other [employer] Other 01-05-2024 11:00-0500Respiratory rate16 /minBenjamin Ball Other [employer] Other 01-05-2024 11:00-0500Systolic blood krvnofru665 mm[Hg] Nathan Ball Other [employer] Other 12-05-2023 09:45-0500Body ltrnyh645.1 cmBenjamin Ball Other [employer] Other 12-05-2023 09:45-0500Body mass index (BMI) [Ratio] 31.61 kg/l7Vtrbrgng Ball Other [employer] Other 12-05-2023 09:45-0500Body ipgvrq07.18 kgBenjamin Ball Other [employer] Other 12-05-2023 09:45-0500Diastolic blood kbramqla69 mm[Hg] Nathan Ball Other [employer] Other 12-05-2023 09:45-0500Respiratory rate12 /minBenjamin Ball Other [employer] Other 12-05-2023 09:45-0500Systolic blood qoplwtbj123 mm[Hg] Nathan Ball Other [employer] Other 08-11-2023 11:15-0400Body qfqyeq938.1 cmBenjamin Ball Other [employer] Other 08-11-2023 11:15-0400Body mass index (BMI) [Ratio] 32.95 kg/l8Gatganuc Ball Other [employer] Other 08-11-2023 11:15-0400Body viezkf85.81 kgBeesa Hathaway Other [employer] Other 08-11-2023 11:15-0400Diastolic blood ezbijzlk44 mm[Hg] Nathan Hathaway Other [employer] Other 08-11-2023 11:15-0400Respiratory rate12 /minBeesa Hathaway Other [employer] Other 08-11-2023 11:15-0400Systolic blood edtncfno762 mm[Hg] Nathan Hathaway Other [employer] Other 08-07-2023 13:51-0400Body ghuwqfryehx04.7 [degF]Luis Mckenzie MD Work Phone: [facility]08-07-2023 13:51-0400Body igypak51.99 kgLuis Mckenzie MD Work Phone: [facility]08-07-2023 13:51-0400Diastolic blood iwemmxgq51 mm[Hg]Luis Mckenzie MD Work Phone: [facility]08-07-2023 13:51-0400Heart rate56 /min Luis Mckenzie MD Work Phone: [facility]08-07-2023 13:51-0400Respiratory rate 18 /minLuis Mckenzie MD Work Phone: [facility]08-07-2023 13:51-2977MbS7% (BldA) [Mass fraction]98 %Luis Mckenzie MD Work Phone: [facility]08-07-2023 13:51-0400Systolic blood abtqmkml634 mm[Hg]Luis Mckenzie MD Work Phone: [facility]07-28-2023 11:15-0400Body .1 cmBenjamin Ball Other [employer] Other 07-28-2023 11:15-0400Body mass index (BMI) [Ratio] 32.86 kg/f1Cthymcen Ball Other [place] [employer] Other 07-28-2023 11:15-0400Body .59 kgBenjamin Ball Other [place] [employer] Other 07-28-2023 11:15-0400Diastolic blood ebrpsqkd50 mm[Hg] Nathan Ball Other [place] [employer] Other 07-28-2023 11:15-0400Respiratory rate16 /minBenjamin Ball Other [place] [employer] Other 07-28-2023 11:15-0400Systolic blood mm[Hg] Nathan Ball Other [place] [employer] Other 07-21-2023 15:30-0400Body ezvhhuluiuv27.7 [degF]DO Nathan Ball Work Phone: [facility]07-21-2023 15:30-0400 Diastolic blood gxsxrgux96 mm[Hg]DO Nathan Ball Work Phone: [facility]07-21-2023 15:30-0400 Heart rate62 /minDO Nathan Ball Work Phone: [facility]07-21-2023 15:30-0400 Respiratory rate16 /minDO Nathan Ball Work Phone: [facility]07-21-2023 15:30-0400 SaO2% (BldA) [Mass fraction]95 %DO Ntahan Ball Work Phone: [facility]07-21-2023 15:30-0400 Systolic blood defqlqve839 mm[Hg]DO Nathan Ball Work Phone: [facility]07-21-2023 05:39-0400 Body clsyea96.1 kgDO Nathan KupiKupon Work Phone: [facility]07-20-2023 20:00-0400 Inhaled oxygen flow rate1.5 L/minDO Nathan Hathaway Work Phone: [facility]07-20-2023 15:54-0400 Body jagsjr048.72 cmDO Nathan KupiKupon Work Phone: [facility]07-19-2023 11:30-0400 Body xfqrfu029.1 cmBenjamin Ball Other [employer] Other 07-19-2023 11:30-0400Body mass index (BMI) [Ratio] 33.28 kg/r4Cgqixmqo Ball Other [employer] Other 07-19-2023 11:30-0400Body laiwgk38.72 kgBenjamin Ball Other [place] [employer] Other 07-19-2023 11:30-0400Diastolic blood ervdnflj71 mm[Hg] Nathan Ball Other [employer] Other 07-19-2023 11:30-0400Respiratory rate16 /minBenjamin Ball Other [employer] Other 07-19-2023 11:30-0400Systolic blood mm[Hg] Nathan Ball Other [place] [employer] Other 07-12-2023 11:15-0400Body hsfufn612.1 cmBenjamin Ball Other [employer] Other 07-12-2023 11:15-0400Body mass index (BMI) [Ratio] 32.75 kg/n8Hxscxppu Ball Other [employer] Other 07-12-2023 11:15-0400Body ezlsoi71.27 kgBenjamin Ball Other [employer] Other 07-12-2023 11:15-0400Diastolic blood mm[Hg] Nathan Ball Other [employer] Other 07-12-2023 11:15-0400Respiratory rate16 /minBenjamin Ball Other [employer] Other 07-12-2023 11:15-4869CzZ5% (BldA) [Mass fraction]98 % Nathan Ball Other [employer] Other 07-12-2023 11:15-0400Systolic blood xajgemcu158 mm[Hg] Nathan Ball Other [employer] Other 06-29-2023 11:30-0400Body guqyun173.1 cmBenjamin Ball Other [employer] Other 06-29-2023 11:30-0400Body mass index (BMI) [Ratio] 32.53 kg/f5Wjegylqt Ball Other [employer] Other 06-29-2023 11:30-0400Body mwpott34.68 kgBenjamin Ball Other [employer] Other 06-29-2023 11:30-0400Diastolic blood iftbajni70 mm[Hg] Nathan Ball Other [employer] Other 06-29-2023 11:30-0400Respiratory rate16 /minBenjamin Ball Other [employer] Other 06-29-2023 11:30-0400Systolic blood kgrjevlw759 mm[Hg] Nathan Ball Other [employer] Other 06-21-2023 09:45-0400Body hfujza773.1 cmBenjamin Ball Other [employer] Other 06-21-2023 09:45-0400Body mass index (BMI) [Ratio] 33.28 kg/o9Ylhnajgi Ball Other [employer] Other 06-21-2023 09:45-0400Body .72 kgBenjamin Ball Other [employer] Other 06-21-2023 09:45-0400Diastolic blood yyvxhxex76 mm[Hg] Nathan Ball Other [employer] Other 06-21-2023 09:45-0400Respiratory rate20 /minBenjamin Ball Other [employer] Other 06-21-2023 09:45-2498NqC0% (BldA) [Mass fraction]98 % Nathan Ball Other [employer] Other 06-21-2023 09:45-0400Systolic blood ufcudifi651 mm[Hg] Nathan Ball Other [employer] Other 05-18-2023 10:45-0400Body hoodbb859.1 cmBenjamin Ball Other [facility] [employer] Other 05-18-2023 10:45-0400Body mass index (BMI) [Ratio] 31.95 kg/b5Tlkwdokd Ball Other [place] [employer] Other 05-18-2023 10:45-0400Body gsuuwo31.09 kgBenjamin Ball Other [place] [employer] Other 05-18-2023 10:45-0400Diastolic blood xvcbbqni32 mm[Hg] Nathan Ball Other [place] [employer] Other 05-18-2023 10:45-0400Respiratory rate16 /minBenjamin Ball Other [place] [employer] Other 05-18-2023 10:45-0400Systolic blood xfducufc582 mm[Hg] Nathan Ball Other [place] [employer] Other 05-12-2023 17:00-0400Body jjthkzvutce00.9 [degF]DO Nathan Ball Work Phone: [facility]05-12-2023 17:00-0400 Diastolic blood yaazgvld13 mm[Hg]DO Nathan Ball Work Phone: [phone]05-12-2023 17:00-0400 Heart rate54 /minDO Nathan Ball Work Phone: 1(216)[phone]05-12-2023 17:00-0400 Respiratory rate16 /minDO Nathan Ball Work Phone: 1(649)[phone]05-12-2023 17:00-0400 SaO2% (BldA) [Mass fraction]96 %DO Nathan Ball Work Phone: [facility]05-12-2023 17:00-0400 Systolic blood zhvbechy237 mm[Hg]DO Nathan Ball Work Phone: [facility]05-12-2023 08:11-0400 Body apqrcf631.1 cmDO Nathan Ball Work Phone: [facility]05-12-2023 08:11-0400 Body kgDO Nathan Ball Work Phone: 1(851)[phone]05-10-2023 10:14-0400 Diastolic blood aixifcwf13 mm[Hg]Nathan E Ball Work Phone: 1(154) [phone]-Cyjaq [facility] [address] DO Work Phone: 1(586) 736-417805-10-2023 10:14-0400Systolic blood mm[Hg] Nathan E Ball Work Phone: 1(131) [phone]-Kexzu [facility] 250 DO Work Phone: 1(873) 342-876405-10-2023 10:04-0400Body .1 cmBenjamin E Ball Work Phone: 1(939) [phone]-Xbejb [facility] 250 DO Work Phone: 1(871) 922-839605-10-2023 10:04-0400Body mass index (BMI) [Ratio] 33.95 kg/z3Rcycujqp E Ball Work Phone: 1(832) [phone]-Svxzi [facility] 250 DO Work Phone: 1(361) 751-417905-10-2023 10:04-0400Body surface area Derived from formula1.99 i3Hpdctort E Ball Work Phone: 1(320) [phone]-Ipbcm [facility] 250 DO Work Phone: 1(940) 448-277605-10-2023 10:04-0400Body kaqzfa58.53 kgBenjamin E Ball Work Phone: 1(429) [phone]-Jzjyf [facility] 250 DO Work Phone: 1(944) 346-660205-10-2023 10:04-0400Diastolic blood tqpkfwuk37 mm[Hg] Nathan E Ball Work Phone: [phone]-Uvssr [facility] [employer] 250 DO Work Phone: 1(519) 187-379305-10-2023 10:04-0400Heart rate45 /minBenjamin E Ball Work Phone: [phone]-Dxrwj [facility] [employer] 250 DO Work Phone: 1(432) 607-344405-10-2023 10:04-0400Systolic blood licjyfgt413 mm[Hg] Nathan E Ball Work Phone: [phone]-Fcxoy [facility] [employer] 250 DO Work Phone: 1(660) 731-507204-19-2023 11:15-0400Body pianva697.1 cmBenjamin Ball Other [employer] Other 04-19-2023 11:15-0400Body mass index (BMI) [Ratio] 32.61 kg/i4Vvtqfglm Ball Other [employer] Other 04-19-2023 11:15-0400Body fughnr19.91 kgBenjamin Ball Other [employer] Other 04-19-2023 11:15-0400Diastolic blood mqtyvssl44 mm[Hg] Nathan Ball Other [employer] Other 04-19-2023 11:15-0400Respiratory rate12 /minBenjamin Ball Other [employer] Other 04-19-2023 11:15-0400Systolic blood lwhhewre351 mm[Hg] Nathan Ball Other [employer] Other 04-07-2023 12:15-0400Body .1 cmBenjamin Ball Other [employer] Other 04-07-2023 12:15-0400Body mass index (BMI) [Ratio] 32.78 kg/g2Qdfkbikb Ball Other [employer] Other 04-07-2023 12:15-0400Body ypzuih21.36 kgBenjamin Ball Other [employer] Other 04-07-2023 12:15-0400Diastolic blood seftooor49 mm[Hg] Nathan Ball Other [employer] Other 04-07-2023 12:15-0400Respiratory rate12 /minBenjamin Ball Other [employer] Other 04-07-2023 12:15-0400Systolic blood eefkodus221 mm[Hg] Nathan Ball Other [employer] Other 02-16-2023 10:00-0500Body fkulit198.1 cmBenjamin Ball Other [employer] Other 02-16-2023 10:00-0500Body mass index (BMI) [Ratio] 32.53 kg/b7Zkbihiae Ball Other [employer] Other 02-16-2023 10:00-0500Body .68 kgBenjamin Ball Other [employer] Other 02-16-2023 10:00-0500Diastolic blood mm[Hg] Nathan Ball Other [employer] Other 02-16-2023 10:00-0500Respiratory rate12 /minBenjamin Ball Other [employer] Other 02-16-2023 10:00-0500Systolic blood mlrxzzax976 mm[Hg] Nathan Ball Other [facility] [employer] Other 02-06-2023 13:25-0500Body .4 cmLuis Mckenzie MD Work Phone: [facility]02-06-2023 13:25-0500Body temperature 97.11 [degF]Luis Mckenzie MD Work Phone: [facility]02-06-2023 13:25-0500Body qitqhm36.36 kgLuis Mckenzie MD Work Phone: [facility]02-06-2023 13:25-0500Diastolic blood mm[Hg]Luis Mckenzie MD Work Phone: [facility]02-06-2023 13:25-0500Heart rate63 /min Luis Mckenzie MD Work Phone: [facility]02-06-2023 13:25-0500Respiratory rate 16 /minLuis Mckenzie MD Work Phone: [facility]02-06-2023 13:25-7064ApY8% (BldA) [Mass fraction]96 %Luis Mckenzie MD Work Phone: [facility]02-06-2023 13:25-0500Systolic blood qrvixsjr879 mm[Hg]Luis Mckenzie MD Work Phone: [facility]01-17-2023 15:00-0500Body pcpoea315.1 cmBenjamin Ball Other [facility] [employer] Other 01-17-2023 15:00-0500Body mass index (BMI) [Ratio] 32.53 kg/a9Ytdyetrp Ball Other [facility] [employer] Other 01-17-2023 15:00-0500Body .68 kgBenjamin Ball Other [facility] [employer] Other 01-17-2023 15:00-0500Diastolic blood noodwmqk75 mm[Hg] Nathan Hathaway Other [facility] [employer] Other 01-17-2023 15:00-0500Respiratory rate12 /minNathan Hathaway Other [facility] [employer] Other 01-17-2023 15:00-0500Systolic blood onpaxseo619 mm[Hg] Nathan Hathaway Other [facility] [employer] Other 08-01-2022 10:06-0400Body .4 cmLuis Mckenzie MD Work Phone: [facility]08-01-2022 10:06-0400Body temperature 97.59 [degF]Luis Mckenzie MD Work Phone: [facility]08-01-2022 10:06-0400Body .72 kgLuis Mckenzie MD Work Phone: [facility]08-01-2022 10:06-0400Diastolic blood kzqruyyx98 mm[Hg]Luis Mckenzie MD Work Phone: [facility]08-01-2022 10:06-0400Heart rate50 /min Luis Mckenzie MD Work Phone: [facility]08-01-2022 10:06-0400Respiratory rate 16 /minLuis Mckenzie MD Work Phone: [facility]08-01-2022 10:06-7860BuV5% (BldA) [Mass fraction]96 %Luis Mckenzie MD Work Phone: [facility]08-01-2022 10:06-0400Systolic blood iwklllzs789 mm[Hg]Luis Mckenzie MD Work Phone: [facility] Encounters Encounter DateEncounter TypeCare ProviderFacilityStart: 08-21-2025 End: 91-90-9665rhohqixuvnGhnkvcwr Fransico DO Work Phone: [facility]2025 End: 52-23-9081Nhhmwbp encounter procedureBenalberta Hathaway DO-[facility] Work Phone: Start: 08-19-2025 End: 88-76-2604Mewqjjj encounter procedureKaia Krishna APRN-Ultrasound [facility] Work Phone: Start: 08-19-2025 End: 52-62-2699khqpzvcmgoSxctugtq Fransico DO Work Phone: [phone]-NmasxwzggcTustin Rehabilitation HospitalStart: 25-70-0416Wao-patient / Non-visitCatherine Sebastian [facility] Work Phone: Start: 92-70-8427Xsr-patient / Non-visitAgueda Saul MD-[facility] Work Phone: Start: 57-58-2411Zhp-patient / Non-visitAgueda Saul MD-[facility] Work Phone: Start: 56-70-7281Zwv-patient / Non-visitSeth Baker DO-[facility] Work Phone: Start: 88-61-6434Dou-patient / Non-visitCatherine Sebastian [facility] Work Phone: Start: 48-11-3613Nkh-patient / Non-visitAgueda Saul MD-[facility] Work Phone: Start: 72-10-7994Luu-patient / Non-visitCher Singh DO-[facility] Work Phone: Start: 08-04-2025 End: 43-56-9610tvgnidjscqLfrwealb Fransico DO Work Phone: [facility] Work Phone: Start: 08-04-2025 End: 44-92-2790Ttczbra encounter Armando Krishna APRN-[facility] Work Phone: Start: 07-21-2025 End: 88-96-5308iwourstxpoDvzhltkx Fransico DO Work Phone: [facility] Work Phone: Start: 07-21-2025 End: 39-25-1179Frchbop encounter procedureNathan Hathaway DO-[facility] Work Phone: Start: 71-57-1054Uee-patient / Non-visitValentin Leonard MD-[facility] Work Phone: Start: 07-15-2025 End: 64-90-4884mjlnutonxaOVTUBLYN E BALLFacility:[facility]tart: 07-10-2025 End: 07-55-4200Vdexqbozm encounterValentin Leonard MD Work Phone: Cancer Appts MCComment on above:Orders; Patient Update Start: 07-08-2025 End: 76-66-7874Uyfyhlapr encounterPaolo Casillas APRN.CNP Work Phone: Cancer Appts MCComment on above:ResultsStart: 07-08-2025 End: 60-04-9646Rfumajz encounter Spencer Casillas APRN.CNP Work Phone: Hematology/OncologyStart: 13-99-7808Asa-patient / Non-visitFanny Bedoya APRN FAMILY DENTIST-C-[facility] Work Phone: Start: 07-08-2025 End: 60-79-1834rhlmwficxmEizigAngelia Casillas APRN.CNP Work Phone: Hematology/OncologyComment on above:Abnormal SPEP (Primary Dx); Primary hypertension; Hyperlipidemia, unspecified hyperlipidemia type; Heart disease; Edema, unspecified type; Monoclonal gammopathy of undetermined significance; Anemia in other chronic diseases classified elsewhereStart: 07-06-2025 End: 08-41-4437Ttnvowvpg encounterLudyly Sandoval SANDOVALNManuelDIE ENGRAVING SUPERVISOR Work Phone: Hematology/OncologyComment on above:Lab Orders (nt) Start: 45-14-7702Nmm-patient / Non-visitBenjamin Ball DO-[facility] Work Phone: Start: 32-97-8388Jek-patient / Non-visitBenjamin Ball DO-[facility] Work Phone: Start: 06-19-2025 End: 93-07-7624pgnanwmyozBrxhjvbx Ball DO Work Phone: [facility] Work Phone: Start: 06-19-2025 End: 88-75-4208Gouynhl encounter procedureBenjamin Ball DO-[facility] Work Phone: Start: 05-19-2025 End: 28-52-1267rtxtsbujnfUiywtcbv Ball DO Work Phone: [facility] Work Phone: Start: 05-19-2025 End: 59-75-1460Vjokxzh encounter procedureBenjamin Ball DO-[facility] Work Phone: Start: 03-19-2025 End: 07-73-0465jfsvzvuutsTtzaajws Ball DO Work Phone: [facility] Work Phone: Start: 03-19-2025 End: 83-40-8873Dhgdllc encounter procedureBenjamin Ball DO Work Phone: [facility] Work Phone: Start: 46-15-3765Rvl-patient / Non-visitBenjamin Ball DO Work Phone: [facility] Work Phone: Start: 03-17-2025 End: 59-47-5476Unvsuywwqf hospital visit by physicianLaura Blair Echo/Vasc Room [address] [place], [place] [address]Comment on above:Essential hypertension; PalpitationsStart: 03-17-2025 End: 92-55-1128sbeldmzwkkWMJHX [facility] Start: 03-13-2025 End: 89-13-6240Jwbyvva encounter procedureBegonzálezalberta Hathaway DO Work Phone: [facility] Work Phone: Start: 02-25-2025 End: 33-47-4579Svgzjy flowsheetReyna Esparza MD Work Phone: [facility] CI ENTStart: 02-25-2025 End: 29-75-8937Kivhhu flowsGuy Esparza MD Work Phone: [facility] CI ENTStart: 02-25-2025 End: 31-85-1302Qhrqoq outpatient visit 15 minutesReyna Esparza MD Work Phone: [facility] CI ENTComment on above:Nontoxic multinodular goiter (CMS/HCC) (Primary Dx)Start: 02-25-2025 End: 68-60-8138yarafdoyweMEZFEH H TIMMISNot AvailableStart: 02-12-2025 End: 61-12-1666Bjazltjsc department patient visitBenalberta Hathaway DO Work Phone: [facility]-Emergency Room Work Phone: Start: 02-10-2025 End: 56-02-0270Gffkqqjye Result EncounterReyna Esparza MD Work Phone: [facility] External Department UnsolicitedStart: 02-10-2025 End: 87-07-4136Lyanntvpx Result EncounterReyna Esparza MD Work Phone: noms External Department UnsolicitedStart: 01-26-2025 End: 49-57-8007aoxwdazvecJUGTC [facility] AmbulatoryStart: 98-79-1253Psq-patient / Non-visitBenjamin Ball DO Work Phone: [facility] Work Phone: Start: 01-22-2025 End: 74-88-7923toutcjnlwwPlefkmbi Ball DO Work Phone: [facility] Work Phone: Start: 01-22-2025 End: 97-78-1775Zifcieu encounter procedureBenjamin Ball DO Work Phone: [facility] Work Phone: Start: 01-12-2025 End: 14-97-0263Tpcnec outpatient visit [facility] centerHolden Lambert [facility] Work Phone: uh [facility] HospitalComment on above:BMI 33.0-33.9,adult (Primary Dx); Essential hypertension; Palpitations; ASHD (arteriosclerotic heart disease); Mixed hyperlipidemiaStart: 01-12-2025 End: 15-17-4058jdaqwkxdilCXNOZEast [facility] AmbulatoryStart: 12-29-2024 End: 61-64-4656qzpmwvftpuFbxwsfag Ball DO Work Phone: [facility] Work Phone: Start: 12-29-2024 End: 14-97-5901Sgphtuu encounter procedureBenjamin Ball DO Work Phone: [facility] Work Phone: Start: 79-97-7515Cxp-patient / Non-visitBenjamin Ball DO Work Phone: [facility] Work Phone: Start: 12-16-2024 End: 86-72-9216Scbnres encounter procedureBenjamin Ball DO Work Phone: [facility] Work Phone: Start: 11-25-2024 End: 05-30-1642Erufla flowsheetReyna Esparza MD Work Phone: [facility] CI ENTStart: 11-25-2024 End: 52-96-7588Spqtks Zoraida Esparza MD Work Phone: [facility] CI ENTStart: 11-25-2024 End: 95-55-9123Nqbpyr outpatient new 45 minutesReyna Esparza MD Work Phone: [facility] CI ENTComment on above:Thyroid nodule (CMS/HCC) (Primary Dx)Start: 11-25-2024 End: 53-02-3337dzkoxuwsnqGXQHSM H TIMMISNot AvailableStart: 68-72-3230knyemyaukh Nathan Ball DO Work Phone: [facility] Work Phone: Start: 25-86-1680Pxt-patient / Non-visitBenjamin Ball DO Work Phone: [facility] GroupHigh[facility] Work Phone: Start: 11-17-2024 End: 46-36-1055Jawzepche to same day surgery centerBenjamin Ball DO Work Phone: [facility]-Ultrasound [place] Work Phone: Start: 11-17-2024 End: 79-78-3807fvsqubcdgoJbncmxic Ball DO Work Phone: [facility] Work Phone: Start: 10-09-2024 End: 34-55-0349MrapmpSalapkf Weiun[facility] of [facility] COT Work Phone: noms OPHTStart: 10-08-2024 End: 40-11-1604Ppjcvn outpatient visit 25 minutesEdinson Perry DO Work Phone: uh FirelandsComment on above:ASHD (arteriosclerotic heart disease); Essential hypertension; BMI 33.0-33.9,adult; Former smoker; S/P PTCA (percutaneous transluminal coronary angioplasty); Mixed hyperlipidemia; Coronary arteriosclerosis after percutaneous transluminal coronary angioplasty (PTCA)Start: 10-08-2024 End: 14-38-1287xnqkwnqxkxPONOBPCLifeBrite Community Hospital [facility] AmbulatoryStart: 95-71-2272Mzo-patient / Non-visitBegonzálezalberta Hathaway DO Work Phone: [facility] Work Phone: Start: 09-11-2024 End: 45-33-2938lrqvglfrywScwbnktwdOhioHealth [facility] Work Phone: Start: 09-11-2024 End: 22-03-9384Fphlock encounter procedureFirsthealth [facility] Work Phone: Start: 45-23-6369Qtw-patient / Non-visitFirsthealth [facility] Hospital [facility] Work Phone: Start: 07-16-2024 End: 82-95-2482kzpgarvzpyMcipdchxvOhioHealth [facility] Work Phone: Start: 07-16-2024 End: 04-40-0407Uhzvgqz encounter procedureFirsthealth [facility] Work Phone: Start: 06-03-2024 End: 49-37-1968fzwshjsoqhFJ Nathan KupiKupon Work Phone: [facility] Work Phone: Start: 06-03-2024 End: 41-84-6048Luocwqi encounter procedureDO Nathan KupiKupon Work Phone: [facility] Work Phone: Start: 55-32-5357Gbr-patient / Non-visitDO Nathan KupiKupon Work Phone: [facility] Work Phone: Start: 49-80-3138Jhf-patient / Non-visitDO Nathan KupiKupon Work Phone: [facility] Work Phone: Start: 04-28-2024 End: 16-88-0497nnfwhaszjjJZWIQPAB D ZAHLERNot AvailableStart: 04-21-2024 End: 49-62-9696Oswbbr outpatient visit 15 minutesHolden Rosado SENIOR TECHNICAL BUSINESS ANALYST-DIE ENGRAVING SUPERVISOR Work Phone: uh [facility] HospitalComment on above:Essential hypertension (Primary Dx); ASHD (arteriosclerotic heart disease); Mixed hyperlipidemia; BMI 32.0-32.9,adultStart: 04-21-2024 End: 66-97-5456pmtijdgtndGEQOW [facility] AmbulatoryStart: 03-12-2024 End: 00-17-1753Nmmskpbkjf hospital visit by Derrick Zaidi 1U[facility] HospitalComment on above:ASHD (arteriosclerotic heart disease)Start: 03-05-2024 End: 04-79-1001apvtttjvmyMN Nathan KupiKupon Work Phone: [facility] Work Phone: Start: 03-05-2024 End: 95-43-3474Wuenice encounter procedureDO Sedicidodici Work Phone: [facility]-Lab [place] Work Phone: Start: 03-05-2024 End: 25-19-8999Zibxwz outpatient visit 25 minutesHolden Rosado SENIOR TECHNICAL BUSINESS ANALYST-DIE ENGRAVING SUPERVISOR Work Phone: uh [facility] HospitalComment on above:ASHD (arteriosclerotic heart disease) (Primary Dx); Essential hypertension; Mixed hyperlipidemia; BMI 32.0-32.9,adultStart: 02-27-2024 End: 46-08-2202Yyytirz encounter procedureDO Sedicidodici Work Phone: [facility] Phys[facility] GroupD[facility] Work Phone: Start: 24-38-2534Bli-patient / Non-visitDO Sedicidodici Work Phone: [facility] GroupHighline [facility] Professional [facility] Work Phone: Start: 68-74-5146Jjy-patient / Non-visitDO Nathan Hathaway Work Phone: [facility] Work Phone: Start: 36-76-5714Mff-patient / Non-visitDO Nathan Hathaway Work Phone: [facility] Work Phone: Start: 97-06-5730Rej-patient / Non-visitDO Nathna Hathaway Work Phone: [facility] Work Phone: Start: 02-13-2024 End: 42-43-2869vuzzvobblkXgftyaexoOhioHealth [facility] Work Phone: Start: 02-13-2024 End: 25-36-1216Qlbfnoe encounter procedureFirsthealth [facility] Work Phone: Start: 76-26-1263Znx-patient / Non-visitFirelands Physician Group-[facility] Work Phone: Start: 02-01-2024 End: 31-56-2293ipxccoipycYuypddoeiOhioHealth [facility] Work Phone: Start: 02-01-2024 End: 39-00-9490Etwikef encounter procedureFirsthealth [facility] Hospital Physician GroupOhioHealth [facility] Work Phone: Start: 01-04-2024 End: 85-53-0869rrqospnmkbFqqiclgb Ball Other [employer] Other Start: 30-55-8148Ahfvlddyv encounterBenairam HathawayBrown Memorial Hospitaltart: 60-34-2708Rea-patient / Non-visitFirhoustons Physician Group-[facility] Work Phone: Start: 11-27-2023 End: 06-04-7159yzddmpownfRrdoijul KupiKupon Other [employer] Other Start: 07-38-2446Fzpwajfgj encounterBenjamin BallFPG [facility] ClinicStart: 11-02-2023 End: 29-15-6199zszfsqylzyQfodwoca Ball Other [employer] Other Start: 17-48-9532Qfdihv outpatient visit 25 minutes Nathan BallFPG [facility] ClinicStart: 10-02-2023 End: 73-34-7883iuiviapsjjUiyyuvfp Ball Other [facility] [employer] Other Start: 16-78-2504Fmeekq outpatient visit 25 minutes Nathan BallFPG [facility] ClinicStart: 09-26-2023 End: 11-16-1328trmgwwljymZalujpou Ball Other [facility] [employer] Other Start: 01-64-8669Ohyvioqbr encounterBenjamin BallFPG [facility] ClinicStart: 09-21-2023 End: 58-30-1057ofqsyxwjquSgybnict Ball Other [facility] [employer] Other Start: 93-35-0014Nlxhhgwph encounterBenjamin BallFPG [facility] ClinicStart: 2023 End: 37-63-9148nqpxxtxlgcMtmxhmuu Ball Other [facility] [employer] Other Start: 85-55-0949Zggerphdl encounterBenjamin BallFPG [facility] ClinicStart: 09-13-2023 End: 37-74-8043qnnlekbfbsGyupawen Ball Other [employer] Other Start: 83-86-4828Encmblngo encounterBenjamin BallFPG [facility] ClinicStart: 09-11-2023 End: 18-07-4640ppvibdtfcwIogbqrbj Ball Other [employer] Other Start: 34-20-3402Gnbcxs outpatient visit 15 minutes Nathan BallFP[facility] ClinicStart: 08-16-2023 End: 19-91-7368cuwphzqurqKiitzjua Ball Other [employer] Other Start: 39-24-7685Alabvhgjo encounterBenjamin BallFP[facility] ClinicStart: 07-31-2023 End: 21-71-7826okmjagwwhkJjgcgpov Ball Other [employer] Other Start: 16-26-2487Pczyhyxyx encounterBenjamin BallFPG [facility] ClinicStart: 07-30-2023 End: 60-48-1504wzepebfrzkCavvtjwl Ball Other [employer] Other Start: 39-21-0797Rxsovvupk encounterBenjamin BallFP[facility] ClinicStart: 07-19-2023 End: 61-53-7700broxeqankhVvkuhvek Ball Other [employer] Other Start: 54-36-6582Sdchgiraw encounterBenjamin BallFPG [facility] ClinicStart: 07-18-2023 End: 94-48-9539srnzydcpsmRrosaycl Ball Other [employer] Other Start: 23-96-4050Ininnsjkx encounterBenjamin BallFPG [facility] ClinicStart: 07-17-2023 End: 07-29-1893ddkjzlyrzzWomrhaaf Ball Other [employer] Other Start: 34-23-3604Xoftmyi evaluation of patient and reportBenjamin BallFPG [facility] ClinicStart: 06-28-2023 End: 50-31-3242siomwvggapZyetmmzw Ball Other [employer] Other Start: 08-37-8322Nfkmgmeyi encounterBenjamin BallFP[facility] ClinicStart: 06-25-2023 End: 93-09-2480bppezjulqkClnovmpj Ball Other [employer] Other Start: 76-89-7379Lcqfuznuo encounterBenjamin BallFP[facility] ClinicStart: 06-21-2023 End: 91-30-1186vvyjocljxhZwoumzsk Ball Other [facility] [employer] Other Start: 70-19-5339Nrvrrlmkv encounterBenjamin BallFP[facility] ClinicStart: 06-19-2023 End: 67-06-4250fisvrhrqjuBuwjmcsi Ball Other [facility] [employer] Other Start: 00-06-3523Tjrwsfxvs encounterBenjamin BallFP[facility] ClinicStart: 06-18-2023 End: 72-21-8029phplaojgcoRpjazrdx Ball Other [facility] [employer] Other Start: 15-53-2438Nzozxjdei encounterBenjamin BallFP[facility] ClinicStart: 06-15-2023 End: 60-25-0578neyakvlvqoPasoxpux Ball Other [employer] Other Start: 56-15-6877Rovkkqrsu encounterBenjamin BallFP[facility] ClinicStart: 06-08-2023 End: 30-43-0049ozglwujdzrSzxjzxtb Ball Other [employer] Other Start: 29-68-8025Qpkhjk outpatient visit 15 minutes Nathan BallFP[facility] ClinicStart: 96-70-2539Emhoooged encounterNatcameron Manzanares RNHematology/OncologyComment on above:ResultsStart: 06-04-2023 End: 06-07-0688nrnkdcroegBdlpn R Murphy MD Work Phone: [employer] Other Comment on above:Abnormal SPEP (Primary Dx); Anemia, unspecified type; Neuropathy - (NOS); Heart diseaseStart: 06-04-2023 End: 45-84-5490Bpkvugx encounter procedureLuis Mckenzie MD Work Phone: SANDUSKYStart: 77-93-8594Uybmnhhjp encounterBenjuanairam Hathaway Medical ClinicStart: 06-01-2023 End: 66-84-6795dqehjpyaprOrtdmtrm Ball Other [employer] Other Start: 41-71-6212Wdorlsdya encounterBenjuanmin YelenaG Fransico Medical ClinicStart: 05-25-2023 End: 18-03-5667xylwxpbrrvUkznhqdo Ball Other [employer] Other Start: 66-92-2632Bcikvuhcgwvx care manage srvc 14 day dischargeBenalberta Hathaway Medical ClinicStart: 05-17-2023 End: 22-12-5261Jzckqnjfty and management of inpatientDO Nathan Hathaway Work Phone: [facility]-[address] [place] [facility] Work Phone: Start: 05-17-2023 End: 41-44-9368ficxgpaojji encounterDO Nathan Hathaway Work Phone: [facility] Work Phone: Start: 05-16-2023 End: 45-16-4801rvjjxmobwdDkdqxmse Ball Other [employer] Other Start: 13-54-9269Akyhkg outpatient visit 25 minutes Nathan [facility]FP[facility] ClinicStart: 05-09-2023 End: 38-27-0187kaawvxpiugMwirgcwb Ball Other [employer] Other Start: 22-35-3071Njdboy outpatient visit 25 minutes Nathan [facility]FP[facility] ClinicStart: 27-00-8356Cbdqqpnna encounterBenjamin E Ball Work Phone: [phone]-Gijqn [facility] [address] DO Work Phone: Start: 04-26-2023 End: 88-30-6671xqkyxvhrzcQbbgnrow Ball Other [employer] Other Start: 53-95-9575Hbkfsp outpatient visit 25 minutes Nathan [facility]FP[facility] ClinicStart: 11-13-9229Dflqymsfj encounterBenjamin BallFP[facility] ClinicStart: 04-18-2023 End: 93-67-6624laczqeoronJaamasbi Ball Other [employer] Other Start: 75-89-4904Vpdrek outpatient visit 25 minutes Nathan [facility] ClinicStart: 42-99-4012Fzlqnpgzj encounterBenjamin BallFP[facility] ClinicStart: 03-27-2023 End: 07-84-9820edhwchccbeWtjkrnsr Ball Other [employer] Other Start: 59-15-4210Jyheftnrd encounterBenjamin BallFP[facility] ClinicStart: 03-15-2023 End: 89-91-5126vqvfbcvgixUkvgsout Ball Other [employer] Other Start: 11-66-9713Ivlwhw outpatient visit 25 minutes Nathan [facility] ClinicStart: 03-09-2023 End: 88-67-8517fkmoasbmlmMtManuel PerryMirics Semicon[employer] Other Start: 55-65-8726Xohdlzqhd encounterBenjamin BallZHAOG [facility]ico Medical ClinicStart: 69-32-0832VWZWXAPQX, Provider: Edinson Perry, Status: Pen, Time: 10:00 AMBenjamin Chinyere Ball Work Phone: [phone]-Bbxls [facility] [facility] DO Work Phone: Start: 03-09-2023 End: 36-52-9844Hynyozrus to same day surgery [place]DO Nathan Hathaway Work Phone: [facility]-Program Developer Work Phone: Start: 03-08-2023 End: 44-01-6829ozrjedprwcOY Nathan Hathaway Work Phone: [facility] Work Phone: Start: 03-08-2023 End: 10-51-9469Pqkdnip encounter procedureDO Nathan Hathaway Work Phone: [facility] Nvs-Drq-Fivfztib Testing Work Phone: Start: 17-27-1089Dcjqwy consultation new/estab patient 80 minBenjamin Chinyere Ball Work Phone: [phone]-Mkrfg [facility] [facility] DO Work Phone: Start: 83-34-2967nxaxplrxkzIa. Edinson Perry Facility:[id number]: 03-05-2023 End: 86-98-5756zumxpmnsmfOdqemsmk Ball Other [employer] Other Start: 38-60-7397Kcgscoddd encounterBenalberta Hathaway Medical ClinicStart: 03-01-2023 End: 82-35-5862gnwzohsxqmEM BENJAMIN BALLFacility:Y3Gjujs: 02-27-2023 End: 91-67-4259fhxquewljnCliqljom Ball Other [employer] Other Start: 28-89-3850Esreldvxw encounterBenjamin BallFP[facility] ClinicStart: 02-20-2023 End: 59-17-2920ydihhfpgldJjdwnhwx Ball Other [employer] Other Start: 65-69-9617Ctzpecenj encounterBenjamin BallFP[facility] ClinicStart: 02-14-2023 End: 00-79-7247mxvwqrfpzrUivawtfc Ball Other [employer] Other Start: 47-03-1300Eoznyl outpatient visit 25 minutes Nathan [facility] ClinicStart: 51-48-4805Ltagfqgcq encounterBenjamin BallFP[facility] ClinicStart: 02-11-2023 End: 67-52-0926poiwrvodscYjauarxz Ball Other [employer] Other Start: 51-43-6376Arzqscomr encounterBenjamin BallFP[facility] ClinicStart: 02-08-2023 End: 67-10-8577Edjnsqcbpj and management of inpatientDR NATHAN BALLFacility:H1 Start: 02-02-2023 End: 46-90-8316vazhvzyvfgXmdigpqe Ball Other [employer] Other Start: 91-80-8891Xzxfev outpatient visit 25 minutes Nathan BallFP[facility] ClinicStart: 01-08-2023 End: 35-80-1858gjnzsrjtyyWV NATHAN BALLFacility:B6Sddos: 12-21-2022 End: 29-00-2684lyrvbuuxxrCanvimlv Ball Other [employer] Other Start: 49-09-4836Nglxeipit encounterBenjamin BallFP[facility] ClinicStart: 12-20-2022 End: 25-76-1267dmojbccggdZazutzzc Ball Other [employer] Other Start: 13-76-7975Szwmmuazu encounterBenalberta Hathaway Medical ClinicStart: 12-14-2022 End: 45-87-1879ldeffhviooKihwmzzx Ball Other [employer] Other Start: 01-79-4501Mivhkyy encounter procedureBenalberta Hathaway Medical ClinicStart: 12-04-2022 End: 87-16-2783yqwnxlapqhSckya R Murphy MD Work Phone: Hematology/OncologyComment on above:Abnormal SPEP (Primary Dx); Neuropathy - (NOS); Lung nodulesStart: 12-04-2022 End: 61-34-6678Xotjsgu encounter procedureLuis Mckenzie MD Work Phone: SANDUSKYStart: 11-23-2022 End: 18-50-7402zzitljpkivJbdhjzcf Ball Other [employer] Other Start: 85-19-4791Cpfikangk encounterBenalberta Hathaway Medical ClinicStart: 11-16-2022 End: 50-37-9691ttgdzyraffCP NATHAN BALLFacility:Z8Xwyfj: 11-14-2022 End: 10-75-7518xximbjhukzNdmhcelf Ball Other [employer] Other Start: 54-85-9942Syohim outpatient visit 25 minutes Nathan [facility] Medical ClinicStart: 09-11-2022 End: 44-77-3084ztedgeuottDV NATHAN BALLFacility:D7Xyhsk: 91-28-5004Zqvixkiwz encounterNatcameron Manzanares RNHematology/OncologyComment on above:ResultsStart: 08-28-2022 End: 31-04-3095Skvyeanqet hospital visit by physicianArrival Time Radiology Work Phone: Radiology Pet CTComment on above: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]Start: 05-29-2022 End: 50-81-0030Gwhfm ([place]) OfficeLuis Mckenzie MD Work Phone: Hematology/OncologyComment on above:Abnormal SPEP (Primary Dx); Neuropathy - (NOS); Disorder of adrenal gland (HCC); Lung nodulesStart: 60-60-2793Kvvycricr encounterLuis Mckenzie MD Work Phone: Hematology/OncologyComment on above:Lab OrdersStart: 05-04-2022 End: 47-21-5030wonslhzunoSV NATHAN HATHAWAYFacility:U4Eyglt: 02-18-3644Tfgyy health examinationBenjuanAngleWare Other [facility] [employer] Other Procedures DateProcedureProcedure DetailPerforming ClinicianStart: 67-87-5771Ojlwfs scan of lower limb veinsBenCheezburger DO Work Phone: Start: 00-05-0012Ahbtk volume recorder pneumoplethysmographyBenjamin Ball DO Work Phone: Start: 13-08-3697Zvpyf chest X-rayBenjamin Ball DO Work Phone: Start: 88-77-5787Qz soft tissue head & neck real time imge Cindy Esparza MD Work Phone: Start: 45-22-4200QoyuykyrbbTjxggmeu Ball DO Work Phone: Start: 52-72-6074Xy strs tst xers&/or rx cont ecg trcg onlyHolden Rosado SENIOR TECHNICAL BUSINESS ANALYST-DIE ENGRAVING SUPERVISOR Work Phone: Start: 51-56-1934Dukknrw of placement of stent for coronary artery diseaseS/P coronary artery stent placementHolden Rosado SENIOR TECHNICAL BUSINESS ANALYST-DIE ENGRAVING SUPERVISOR Work Phone: Start: 35-69-3969TF angiography of thoraxDO Sedicidodici Work Phone: Start: 72-74-3517Sjbocy scan of lower limb veinsDO Nathan Hathaway Work Phone: Start: 83-95-2991PJ Ivus Initial VesselDO Nathan Hathaway Work Phone: Start: 06-09-1603HW LHC & COR AngioDO Nathan Hathaway Work Phone: Start: 46-58-7930NR Stent 1st Vessel LAD DESDO Nathan Hathaway Work Phone: Start: 75-39-7375PT Stent 1st Vessel RCA DESDO Nathan Hathaway Work Phone: Start: 86-53-6597Yo abdomen & pelvis w/contrast Maynor Mckenzie MD Work Phone: Start: 29-90-0386Us thorax w/contrast Maynor Mckenzie MD Work Phone: Start: 40-37-5421Nqfsh depression screening assessment Luis Mckenzie MD Work Phone: Start: 17-70-3880Xcrth depression screening assessment Luis Mckenzie MD Work Phone: Start: 13-13-7012Bnwhbtljy for malignant neoplasm of colonBenjamin Ball Other Start: 03-82-0807Bpevkyjbq for osteoporosisBenjamin Ball Other Depression screeningBenjamin Ball Other HysterectomyBenjamin E Ball Work Phone: Screening for malignant neoplasm of breastBenjamin Ball Other Screening for malignant neoplasm of breastBenjamin Ball Other Total colonoscopyBenjamin E Ball Work Phone: Comment on above:2012; Plan of Treatment DateCare ActivityDetailAuthorStart: 99-45-1216Ssphsgko ScreeningDiabetes ScreeningClecleveland clinic [facility] ClinicStart: 02-38-0384Nprtzgbv ScreeningDiabetes Screening [place] ClinicStart: 90-74-3159Ugzvmlce ScreeningDiabetes ScreeningClecleveland clinic [facility] hospital ClinicStart: 71-10-3457KHPZAXJM SCREENDIABETES SCREENDalton ClinicStart: 41-96-4241DCQNLBUZ SCREENDIABETES SCREENDalton ClinicStart: 10-27-2025 End: 65-73-3974Kcxknqd encounter acalmqwkd90/30/2025 2:10 PM EST Office Visit [facility] [address] [facility] [address] [place] [address] Edinson Perry, [address] [facility] [address] [place] [address] [facility]Start: 10-07-2025 End: 52-46-3407shblbkbxae91/10/2025 3:00 PM EST Visit (SP) Office Hematology/Oncology [address] [facility] [place], [place] [phone] Valentin Leonard MD [address] [place] [address] 3 month ELDON with labHematology/OncologyComment on above:3 month ELDON with labStart: 10-07-2025 End: 39-87-9771Gkkzwmv encounter lxlanfevk66/10/2025 2:45 PM EST Office Visit [facility] [address] [place] [address] 3 month ELDON with labNortAscension Providence Hospital LaboratoryComment on above:3 month ELDON with labStart: 92-91-8662OBLDTRJF SCREEN DIABETES SCREENDalton ClinicStart: 68-32-5836Vutkrte referralMercy Health Defiance Hospital Work Phone: Start: 07-08-2025 End: 15-84-1574cmfbhonmfb52/10/2025 10:00 AM EDT Visit (SP) Office Hematology/Oncology [address] [facility] [place] [address] Paolo Casillas, THONY.DIE ENGRAVING SUPERVISOR [address] [place] [address] Dr Hathaway 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 MGUSHematology/OncologyComment on above:Dr Hathaway 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 MGUSStart: 07-08-2025 End: 90-08-0695Foyvlkp encounter yxzkqjiip58/10/2025 10:00 AM EDT Office Visit [facility] [address] [place] [address] [place] [address] Labs Per January Staff MessageNortAscension Providence Hospital LaboratoryComment on above:Labs Per January Staff MessageStart: 07-06-2025 End: 70-09-4966QSP W Auto Differential panel - BloodCOMPLETE BLOOD COUNT AND DIFFERENTIAL Lab Routine Abnormal SPEP Expected: 07/06/2025, Expires: 10/05/2025 [facility] Work Phone: Comment on above:Expected: 07/06/2025, Expires: 10/05/2025Start: 07-06-2025 End: 89-54-5613Xseiurprdnjzj metabolic 2000 panel - Serum or PlasmaCOMPREHENSIVE METABOLIC PANEL Lab Routine Abnormal SPEP Expected: 07/06/2025, Expires: 10/05/2025leveland ClinicComment on above:Expected: 07/06/2025, Expires: 10/05/2025Start: 07-06-2025 End: 18-14-4956STRCPBIUGI PROTEIN, SERUM (BLOOD)MONOCLONAL PROTEIN, SERUM (BLOOD) Lab Routine Abnormal SPEP Expected: 07/06/2025, Expires: 10/05/2025 [facility] HospitalComment on above:Expected: 07/06/2025, Expires: 10/05/2025Start: 07-06-2025 End: 39-62-6952EWNRFEL ELECTROPHORESIS SERUM W/INTERPPROTEIN ELECTROPHORESIS SERUM W/INTERP Lab Routine Abnormal SPEP Expected: 07/06/2025, Expires: leveland ClinicComment on above:Expected: 07/06/2025, Expires: 10/05/2025 Start: 96-68-7270Lrozjwcwr vaccinationInfluenza Vaccine (#1)[facility] Start: 40-55-3142DPZZASJV SCREENDIABETES SCREENProMedica Flower Hospitaltart: 05-04-2025 COVID-19 Vaccine ( season)COVID-19 Vaccine () [facility]Start: 04-29-2025 End: 58-09-8990Wexvhmz encounter rjpxevnzw19/02/2025 9:30 AM EDT Office Visit [facility] [address] [place] [phone] Fercho Tse DO [address] [place] [address] [facility] OPHTStart: 03-17-2025 End: 14-76-3611Alckdbu encounter pfxtepzcw77/20/2025 10:45 AM EDT Appointment [place] [address] [place] [phone] [facility]: [facility]-25[facility]2025 End: 83-72-2492Pxjgubz encounter procedureNOMS CI ENTComment on above:Arrived Start: 01-26-2025 End: 25-79-6003Dyyonxohdtfb / ancillary services vuyayiywif86/31/2025 3:00 PM EDT Ancillary Procedure [address] [place] [address] OZ FirelandsStart: 01-12-2025 End: 26-35-8818Xocdfr monitor studyHolter Or Event 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 Cardiac Services Routine Palpitations Expected: 01/12/2025 (Approximate), Expires: 01/12/2026[facility] Service Area Work Phone: Comment on above:Expected: 01/12/2025 (Approximate), Expires: 01/12/2026Start: 01-12-2025 End: 12-03-5342KH Heart TransthoracicTransthoracic Echo Complete Echocardiography Routine Essential hypertension Palpitations Expected: 0 01/12/2025 (Approximate), Expires: 01/12/2027[facility] Work Phone: Comment on above:Expected: 01/12/2025 (Approximate), Expires: 01/12/2027Start: 11-25-2024 End: 98-06-8213Kitiovc encounter sajsurugb24/28/2025 2:00 PM EST Office Visit [facility] [address] [place] [address] Reyna Esparza MD [address] [place] [address] ArrivedNOMS CI ENTComment on above:ArrivedStart: 31-71-6589Ftrtztg referralMercy Health Defiance Hospital Work Phone: Start: 45-33-4464TjjhizdmjProtestant Hospital Start: 69-98-7377DjupntscjfHtomemldlCommunity Regional Medical Centertart: 10-29-2024 Advance Directive DiscussionAdvance Directive DiscussionProMedica Flower Hospitaltart: 10-08-2024 End: 48-08-9692Hrgpctz encounter hjxbtyzqc79/11/2024 10:40 AM EST Office Visit [place] [address] [facility] [address] [place] [address] Edinson Perry [address] [place] [address] [facility]Start: 61-66-0648Mronc-19 Vaccine ( season)Covid-19 Vaccine ( season)[facility] Hospitaltart: 89-21-7979Eqcnoxqiz vaccinationSelect Medical Specialty Hospital - YoungstownStart: 04-21-2024 End: 43-83-2082Qweid metabolic 2000 panel - Serum or PlasmaBasic Metabolic Panel Lab Routine ASHD (arteriosclerotic heart disease) Expected: 04/21/2024 (Approx imate), Expires: 04/21/2025[facility] Service Area Work Phone: Comment on above:Expected: 04/21/2024 (Approximate), Expires: 04/21/2025Start: 04-21-2024 End: 51-68-6863Nassrxf encounter gwwqlcyuv18/24/2024 10:30 AM EDT Office Visit [facility] [address] [facility] [address] [place] [address] Holden Rosado, SENIOR TECHNICAL BUSINESS ANALYST-DIE ENGRAVING SUPERVISOR [address] [place] [address] [facility]Start: 03-12-2024 End: 58-87-3260Ebvsgio encounter unrmiugey67/15/2024 10:15 AM EDT Appointment [facility] [address] [facility] [address] [place] [phone] [facility] Bill [facility]Start: 03-12-2024 End: 61-33-7140Zfpqylm encounter procedureAspire Behavioral Health Hospitalia [facility] HospitalStart: 03-05-2024 End: 41-30-4261Rmlcl metabolic 2000 panel - Serum or PlasmaBasic Metabolic Panel Lab Routine Essential hypertension Expected: 03/05/2024 (Approximate), Expires: 03/05/2025[facility] Work Phone: Comment on above:Expected: 03/05/2024 (Approximate), Expires: 03/05/2025Start: 03-05-2024 End: 35-04-2089XJ Heart Perfusion W stress and W radionuclide IVNuclear Stress Test Cardiac Nuclear Medicine Routine ASHD (arteriosclerotic heart disease) Expected: 03/05/2024 (Approximate), Expires: 03/05/2026[facility] Service Area Work Phone: Comment on above:Expected: 03/05/2024 (Approximate), Expires: 03/05/2026Start: 07-03-2628WnnshkrnwfitjmluQnplgytqjlpkkyYmkbazdpcu Hospitals [facility] ClevelandStart: 24-99-3872Ldmksxo Directive DiscussionAdvance Directive DiscussionProMedica Flower Hospitaltart: 77-77-1883WLD, Provider: Edinson Perry, Status: Pen, Time: 11:20 AMFUV, Provider: Edinson Perry, Status: Nahid, Time: 11:20 AM[facility] [address] DO Work Phone: Start: 62-01-8876PLPPM-19 Vaccine ( season) COVID-19 Vaccine ( season)[facility]stownStpetaca: 25-50-2560Jykxkpefw vaccinationINFLUENZA (#1)[facility] Hospitaltart: 05-29-2023 Adult depression screening assessmentDEPRESSION SCREENINGProMedica Flower Hospitaltart: 29-47-8295RDA, Provider: Edinson Perry, Status: Pen, Time: 10:20 AMFUV, Provider: Edinson Perry, Status: Pen, Time: 10:20 AMMPRice [facility] [address] DO Work Phone: Start: 50-59-4711MijygqfjuProtestant Hospital Start: 99-70-0107Pyyiuyty admissionCommunity Regional Medical Centertart: 06-86-8761SvvfopfdvCommunity Regional Medical Centertart: 78-66-0191JGCOX-19 VACCINE (6 - Pfizer series)COVID-19 VACCINE (6 - Pfizer series)[facility]: 75-61-2334Wxgjh depression screening assessmentDEPRESSION SCREENINGProMedica Flower Hospitaltart: 35-50-0568XSEOHWC DIRECTIVE DISCUSSIONADVANCE DIRECTIVE DISCUSSION [facility]: 00-34-1565VRKNXGXMNB ASSESSMENTDEPRESSION ASSESSMENT [facility]: 34-35-2086PYLID-19 Vaccine (3 - Pfizer risk series)COVID- 19 Vaccine (3 - Pfizer risk series)[facility]: 55-58-3891Ldivebixu vaccinationINFLUENZA (#1)[facility]: 03-25-2022 COVID-19 VACCINE (5 - Booster for Pfizer series)COVID-19 VACCINE (5 - Booster for Pfizer series)[facility]: 32-31-2511OMNQUWA DIRECTIVE DISCUSSION ADVANCE DIRECTIVE DISCUSSIONProMedica Flower Hospitaltart: 91-75-6221WQZSHLXSNL ASSESSMENTDEPRESSION ASSESSMENTProMedica Flower Hospitaltart: 25-50-4946Btcxhbyp Vaccine (3 of 3)Shingrix Vaccine (3 of 3)[facility]: 18-43-5358Yeftkx Vaccines (2 of 2)Zoster Vaccines (2 of 2)[facility]: 59-43-1434AYFOTQTF VACCINE (2 of 2)SHINGRIX VACCINE (2 of 2)[facility] Start: 62-72-0805NMO High Risk: (Elderly (60+) or Population) (1 - 1- dose 75+ series)RSV High Risk: (Elderly (60+) or Population) (1 - 1- dose 75+ series)[facility]: 01-65-0551GAB Vaccine (1 - 1-dose 75+ series)RSV Vaccine (1 - 1-dose 75+ series)[facility]: 74-09-9718YAcH/Tdap/Td Vaccines (1 - Tdap)DTaP/Tdap/Td Vaccines (1 - Tdap) [facility]: 87-12-8578Uvfpi microalbumin profile DTaP,Tdap,Td Vaccine (1 - Tdap)[facility]: 28-93-4600LHCQ DENSITYBONE DENSITYProMedica Flower Hospitaltart: 36-78-1540NRGIBFJPFGKS: 65+ (1 - PCV) PNEUMOCOCCAL: 65+ (1 - PCV)[facility]: 57-36-4932Dzljholha for osteoporosisBone Density ScreeningProMedica Flower Hospitaltart: 11-01-2007Medicare Annual Wellness VisitMedicare Annual Wellness VisitProMedica Flower Hospitaltart: 50-41-0959NRA patients and/or patients aged 60+ years (1 - 1-dose 60+ series)RSV patients and/or patients aged 60+ years (1 - 1-dose 60+ series)[facility]: 11-87-3081TAkO/Tdap/Td Vaccines (1 - Tdap)DTaP/Tdap/Td Vaccines (1 - Tdap)[facility] Start: 53-80-7597Syjbn microalbumin profileDTAP,TDAP,TD (1 - Tdap)[facility]: 09-95-8659Ngduvsi ScreeningAnxiety ScreeningProMedica Flower Hospitaltart: 88-26-4879Psepbnivmp ScreeningDepression ScreeningProMedica Flower Hospitaltart: 05-91-4249Covinojy mellitus screeningDiabetes ScreeningUnMiddletown Hospital: 95-44-6892Naytrtycnd measurementCreatinine LevelUnMiddletown Hospital: 33-77-3991Foiby panelLipid PanelTriHealth Bethesda North Hospital: 1942Medicare Annual Wellness VisitMedicare Annual Wellness Visit (AWV)[facility]: 1940 Potassium measurementPotassium LevelUnMiddletown Hospital: 11-22-0614Mhnhmxhkt for osteoporosisBone Density ScanSelect Medical Specialty Hospital - YoungstownComprehensive metabolic 2000 panel - Serum or PlasmaProtestant Hospital End: 71-08-8842Jv abdomen & pelvis w/contrast materialCT ABD/PEL W IVCON Radiology Routine Disorder of adrenal gland (HCC) 1 Occurrences starting 05/29/2022 until 06/28/2023[facility] Work Phone: Comment on above:1 Occurrences starting 05/29/2022 until 06/28/2023 End: 95-66-4136VS CHEST W IVCONCT CHEST W IVCON Radiology Routine Lung nodules 1 Occurrences starting 05/29/2022 until 06/28/2023[facility] Work Phone: Comment on above:1 Occurrences starting 05/29/2022 until 3Patient EducationSelect Medical [facility]health [facility]tr Work Phone: Patient referralSelect Medical [facility]health [facility]tr Work Phone: End: 94-48-9864SC Heart TransthoracicLOVELACE MEDICAL [facility]ENTER Service Area Work Phone: Comment on above:Once for 1 Occurrences starting 03/17/2025 until 03/17/2025XR Knee - right 4 ViewsLe [facility]he[facility] [place] Immunizations Immunization DateImmunizationNotesCare BzmxfzeaHwxeufjy46-38-5967zuxrifxei, high dose seasonal, preservative-freeProtestant Hospital09-18-2024 influenza virus vaccine, unspecified formulationPaolo Casillas APRN.CNP Work Phone: [facility] HospitalEmpmcf65-03-9996bjmxvwsxx virus vaccine, unspecified formulationProtestant Hospital10-09-2023influenza, high dose seasonal, preservative-freeBenalberta Hathawya Other [employer] Other [id number]-94 Pfizer (Pediatric)Nathan Hathaway Other [facility]11-18-2022Pfizer COVID-19 Vac Bivalent 30 MCG/0.3ML Intramuscular SuspensionNathan Hathaway Work Phone: [facility]10-14-2022influenza virus vaccine, split virus (incl. purified surface antigen)Nathan Hathaway Other [employer] Other [id number] virus vaccine, unspecified formulationProtestant Hospital04-02-2022COVID-19 mRNA, Comirnaty (Pfizer)DO Nathan Hathaway Work Phone: [facility]04-02-2022COVID-19 PfizerBenalberta Hathaway Other [facility]10-02-2021COVID-19 vaccine, age 12+ yr (PFIZER-BIONTECH - PURPLE TOP)Luis Mckenzie MD Work Phone: [facility] HospitalOsgwzj70-52-4618tedozw vaccine, liveBenalberta Hathaway Other [facility]09-21-2021influenza, high-dose, quadrivalent vaccine (FLUZONE HIGH DOSE QUADRIVALENT)Luis Mckenzie MD Work Phone: [facility] HospitalXeckcp51-41-0669ttlmkmsxn virus vaccine, split virus (incl. purified surface antigen)Nathan Hathaway Other [employer] Other [id number] virus vaccine, unspecified formulationProtestant Hospital07-24-2021zoster vaccine recombinant Luis Mckenzie MD Work Phone: [facility] HospitalSxapbf75-59-7431fvdyoo vaccine, liveBeesa Hathaway Other [facility]02-20-2021COVID-19 vaccine, age 12+ yr (PFIZER-BIONTECH - [facility])Luis Mckenzie MD Work Phone: [facility] HospitalDmfbox33-05-5379BHCIV-42 Vaccine Moderna - Documentation Purposes OnlyaNthan Hathaway Other [facility]01-30-2021COVID-19 vaccine, age 12+ yr (PFIZER-BIONTECH - [facility])Luis Mckenzie MD Work Phone: [facility] HospitalMqtlwv81-61-4066jouujfxgt virus vaccine, split virus (incl. purified surface antigen)Nathan Hathaway Other [employer] Other [id number] virus vaccine, unspecified formulationProtestant Hospital09-11-2019AS03 adjuvantArrival Radiology Work Phone: [facility] HospitalPncfhp70-08-5945Pkjbehmu trivalent influenza vaccine, adjuvanted, preservative Ras Mckenzie MD Work Phone: [facility] HospitalXwmxbe00-05-9223YQ07 adjuvantArrival Radiology Work Phone: [facility] HospitalVpsqap29-29-6266wlgaomfis virus vaccine, split virus (incl. purified surface antigen)Nathan Hathaway Other [employer] Other 10631733-01-1959duvqavhsu virus vaccine, unspecified formulationProtestant Hospital10-16-2018Seasonal trivalent influenza vaccine, adjuvanted, preservative Ras Mckenzie MD Work Phone: [facility] HospitalUklbyp49-52-2458zfvhlidyp virus vaccine, split virus (incl. purified surface antigen)Nathan Hathaway Other [employer] Other 10510411-19-5370jxjdulskh virus vaccine, unspecified formulationFirelands Regional Medical Xkmemi75-67-6891pblpqeswj, high dose seasonal, preservative-freeLuis Mckenzie MD Work Phone: [facility] HospitalPwzzjb94-71-2198ouddmhpar virus vaccine, split virus (incl. purified surface antigen)Nathan Hathaway Other [employer] Other [id number] virus vaccine, unspecified formulationProtestant Hospital11-16-2015pneumococcal conjugate vaccine, 13 valentBenjuanmin Fransico Other [facility]10-20-2015influenza virus vaccine, split virus (incl. purified surface antigen)Nathan Hathaway Other [employer] Other 700796-69-8655kjlxnhvvi virus vaccine, unspecified formulationProtestant Hospital09-18-2014tetanus and diphtheria toxoids, adsorbed, preservative free, for adult use (5 Lf of tetanus toxoid and 2 Lf of diphtheria toxoid)Nathan Hathaway Other [facility]09-11-2013tetanus and diphtheria toxoids, adsorbed, preservative free, for adult use (5 Lf of tetanus toxoid and 2 Lf of diphtheria toxoid)Nathan Hathaway Other [facility]10-14-2010 pneumococcal polysaccharide vaccine, 23 valentBenjamin Fransico Other [facility] Payers DatePayer CategoryPayerPolicy [id number] supplemental policy (as second payer)AARP [id number] Private Health InsuranceC[facility] [id number] 2020-Present [phone] [address] [place] [address] Indemnity [id number] Health [id number] 2007MedicareMEDICARE MEDICARE A AND B [id number] 2007-Present [phone] [address] [address] [place] [address] [id number] 2007Medicare [id number] [id number] 2..840.5.92365[id number] 2.840.9.118253.58 1942 [id number] 2.840.1.656217.3.57[id number] 2.16.840.1.088739.3.57[id number] 2.16.840.1.989673.3.57[id number] 2.16.840.1.062053.3.57[id number] 2.16.840.1.929112.3.57[id number] 2.16.840.1.089598.3.57[id number] 2.16.840.1.899337.3.579.[id number] 2.16.840.1.155781.3.57[id number] 2.16.840.1.458115.3.57[id number] 2..840.1.093417.3.57[id number] 2.840.1.143238.3.57[id number] 2.840.1.562616.3.57[id number] 2.840.1.017506.3.579.[id number] 2.840.1.983740.3.57[id number] 2.840.1.010689.3.57[id number] 2.840.1.991056.3.57[id number] 2.840.1.504[id number] 60zn173g-[id number] Social History DateTypeDetailFacilityStart: 08-01-2021 End: 29-43-5512Rriuspe smoking status NHISEx-smokerWvumedicine Barnesville Hospital End: 75-02-7049Dvimzhe of tobacco useCigarette SmokerProMedica Flower Hospitaltart: 08-01-2021 End: 66-41-4471Nmlrdmm use and exposureSmokeless tobacco non-userProMedica Flower Hospitaltart: 33-68-0342Yho Assigned At BirthNot on fileProMedica Flower Hospitaltart: 05-12-2022 End: 37-45-3994Tmuuvxzt to SARS-CoV-2 (event)Not sureWvumedicine Barnesville Hospital End: 95-49-2701Tzfctqn of tobacco useCurrent smokerProMedica Flower Hospitaltart: 12-04-2022 End: 19-12-2606Klr Assigned At BirthProMedica Flower Hospitaltart: 12-04-2022 End: 56-88-8005Up illicit drug useNo illicit drug useWvumedicine Barnesville HospitalComment on above:2 coffees in am and 1 coffee at hs;1997;Start: 82-23-0884Tlo Assigned At BirthFeNationwide Children's Hospitaltart: 06-04-2023 End: 88-47-4246Pgxxqzj intakeEx-drinker (finding)[facility]tart: 33-21-8688Rtqkb Depression Screening Obzohvvban6Iebiekjci ClinicStart: 12-18-2023 End: 31-20-7183Tmbgqcv smoking status NHISNever smoked tobacco (finding) [facility] Centertart: 03-05-2024 End: 88-72-0228Pnichjuhq beverage intakeLifetime non-drinker (finding)[facility] Work Phone: Start: 09-11-2024 End: 66-89-6168RriWpriyy (finding)[facility] Medical Equipment Procedure CodeEquipment CodeEquipment Original TextEquipment IdentifierDatesCL STENT WILLIE FRONTIER 2.5 X 18FDAStart: 32-64-1304ZS STENT WILLIE FRONTIER 4.0 X 15 FDAStart: 92-25-2441PQ STENT WILLIE FRONTIER 4.0 X 18FDAStart: 09-56-4138GQ STENT WILLIE FRONTIER 2.5 X 18FDAStart: 95-37-0288NP STENT WILLIE FRONTIER 4.0 X 15FDA Start: 12-39-9634ZI STENT WILLIE FRONTIER 4.0 X 18FDAStart: 43-11-3978EK STENT WILLIE FRONTIER 2.5 X 18FDAStart: 78-05-2929QM STENT WILLIE FRONTIER 4.0 X 15FDA Start: 03-84-7095EW STENT WILLIE FRONTIER 4.0 X 18FDAStart: 32-48-3105ZU STENT WILLIE FRONTIER 2.5 X 18FDAStart: 22-53-1516WE STENT WILLIE FRONTIER 4.0 X 15FDA Start: 05-61-4713RS STENT WILLIE FRONTIER 4.0 X 18FDAStart: 06-19-9939NR STENT WILLIE FRONTIER 2.5 X 18FDAStart: 88-51-0258NR STENT WILLIE FRONTIER 4.0 X 15FDA Start: 48-40-7652TW STENT WILLIE FRONTIER 4.0 X 18FDAStart: 20-21-6631RM STENT WILLIE FRONTIER 2.5 X 18FDAStart: 73-02-8333GA STENT WILLIE FRONTIER 4.0 X 15FDA Start: 15-20-1781XA STENT WILLIE FRONTIER 4.0 X 18FDAStart: 13-14-9620VY STENT WILLIE FRONTIER 2.5 X 18FDAStart: 16-82-7448JP STENT WILLIE FRONTIER 4.0 X 15FDA Start: 59-82-9396SO STENT WILLIE FRONTIER 4.0 X 18FDAStart: 85-95-8903OB STENT WILLIE FRONTIER 2.5 X 18FDAStart: 64-18-6533KH STENT WILLIE FRONTIER 4.0 X 15FDA Start: 24-53-3287AT STENT WILLIE FRONTIER 4.0 X 18FDAStart: 99-56-7685AJ STENT WILLIE FRONTIER 2.5 X 18FDAStart: 02-55-4940TY STENT WILLIE FRONTIER 4.0 X 15FDA Start: 91-24-8115CW STENT WILLIE FRONTIER 4.0 X 18FDAStart: 77-38-3525TY STENT WILLIE FRONTIER 2.5 X 18FDAStart: 01-76-6198IY STENT WILLIE FRONTIER 4.0 X 15FDA Start: 87-37-8606OT STENT WILLIE FRONTIER 4.0 X 18FDAStart: 52-63-5641RU STENT WILLIE FRONTIER 2.5 X 18FDAStart: 26-83-5566QS STENT WILLIE FRONTIER 4.0 X 15FDA Start: 44-77-3275SH STENT WILLIE FRONTIER 4.0 X 18FDAStart: 05-95-0197BS STENT WILLIE FRONTIER 2.5 X 18FDAStart: 59-44-1914AG STENT WILLIE FRONTIER 4.0 X 15FDA Start: 45-47-6346UL STENT WILLIE FRONTIER 4.0 X 18FDAStart: 42-58-6557VR STENT WILLIE FRONTIER 2.5 X 18FDAStart: 82-25-7538XN STENT WILLIE FRONTIER 4.0 X 15FDA Start: 02-90-5646NQ STENT WILLIE FRONTIER 4.0 X 18FDAStart: 31-85-6306JH STENT WILLIE FRONTIER 2.5 X 18FDAStart: 51-00-8228QL STENT WILLIE FRONTIER 4.0 X 15FDA Start: 29-85-7273GH STENT WILLIE FRONTIER 4.0 X 18FDAStart: 13-88-6108II STENT WILLIE FRONTIER 2.5 X 18FDAStart: 67-52-9292LO STENT WILLIE FRONTIER 4.0 X 15FDA Start: 30-38-9346TP STENT WILLIE FRONTIER 4.0 X 18FDAStart: 71-74-9643IR STENT WILLIE FRONTIER 2.5 X 18FDAStart: 89-37-3531KJ STENT WILLIE FRONTIER 4.0 X 15FDA Start: 59-19-2587NE STENT WILLIE FRONTIER 4.0 X 18FDAStart: 14-03-5430DX STENT WILLIE FRONTIER 2.5 X 18FDAStart: 41-45-6140PW STENT WILLIE FRONTIER 4.0 X 15FDA Start: 65-60-6982EF STENT WILLIE FRONTIER 4.0 X 18FDAStart: 54-20-2829LK STENT WILLIE FRONTIER 2.5 X 18FDAStart: 22-64-6423EP STENT WILLIE FRONTIER 4.0 X 15FDA Start: 17-06-8275EF STENT WILLIE FRONTIER 4.0 X 18FDAStart: 03-09-2023 Goals DatePatient GoalDesired Activity/State Functional Status GdlhRpdmmglfesNtqcfvZyhyrswo42-81-3184Vdybhapxej statusPatient at Baseline [facility] Work Phone: [phone]) [phone]wgxoazhq statusPatient at Baseline [facility] Work Phone: Mental Status TnsrWavsnpuuylXmwfwaLgaccbbc67-00-5539Fvvvphhpx functionCognitive Status [facility] Work Phone: 1([phone]) [phone]Geftsjppm functionCognitive Status [facility] at [facility] Work Phone: Clinical Notes 05-29-2022 to 08-19-2025 Note Date & [id number] Radiology Diagnostic study [facility] [address] Ultrasound Report Signed Patient: Lashaun Joaquin MR#: [id number] : 1940 Acct:[id number] Age/Sex: 84 / F ADM Date: 5 Loc: Room: Type: [facility] Attending Dr: Kaia Krishna FAMILY DENTIST-C Ordering Provider: Kaia Krishna APRN Date of [...] 0.2 -0.39 cm throughout. There was some varicositiesand air grinder sutures also identified which all measure less [...] had no reflux identified in the right lowerextremity. No evidence of DVT in the bilateral lower extremities. There is varicosities and perforators is also notedin the bilateral lower extremities which appeared small. Impression dictated by: Juan Jose Menard M.D. 08/19/2025 12:30 PM Dictation Location: [place] [address] Tech: Darcy Kraft Transcribed By: LAURA 08/19/25 1230 Dictated By: Juan Jose Menard MD 08/19/25 1227 Signed By: 08/19/25 1230 [facility] Work Phone: 1(949) 350-185010-22-2025 Radiology Diagnostic study [facility] [place] [address] [place] [address] Ultrasound Report Signed Patient: Lashaun Joaquin MR#: [id number] : 1940 Acct:[id number] Age/Sex: 84 / F ADM Date: 5 Loc: Room: Type: [facility] Attending Dr: Kaia Krishna FAMILY DENTIST-C Ordering Provider: Kaia Krishna APRN Date of Service: 08/19/25 US/US arterial pvr rest LE: G25.81 - Restless legs syndrome Copies to: Kaia Krishna APRN~ LOWER EXTREMITY SEGMENTAL ARTERIAL DOPSCAN (PVR) INDICATION: Lower extremity wound PROCEDURE: Right arm blood pressure is 165 , left is 158 . Pressures throughout the right leg are compressible at the low thigh, 170 at the calf, 155 at the ankle using the posterior tibial artery, and 159 at the ankle using thedorsalis pedis artery with ankle-brachial index of 0.94 [...] Menard M.D. 08/19/2025 12:27 PM Dictation Location: [place] [address] Tech: Darcy Iyeredgardo Transcribed By: LAURA 08/19/251226 Dictated By: Juan Jose Menard MD 08/19/251225 Signed By: 08/19/251226 [facility] Work Phone: 1(574) 625-842809-12-2025 Telephone encounter Note* Telephone Encounter - Yolanda Cobian RN - 07/10/2025 2:11 PM EDT Refer to providers phone encounter for details of follow up/intervention Yolanda Cobian RN [facility]09-12-2025 Miscellaneous Notes* Telephone Encounter - Yolanda Cobian RN - 07/10/2025 2:11 PM EDT Refer to providers phone encounter for details of follow up/intervention Yolanda Cobian RN * Telephone Encounter - Yolanda Cobian RN - 07/10/2025 9:17 AM EDT Labs still pending. Yolanda Cobian RN * Telephone Encounter - Kayla Arriaga - 07/08/2025 11:23 AM EDT Please call Her daughter Marianna with today's lab results. [phone] documented in this encounterW[facility]25 Telephone encounter Note * Telephone Encounter - Yolanda Cobian RN - 07/10/2025 11:[address] Hathaway's office and spoke with Dayana. I informed her of Mrs Joaquin worsening anemia/renal function and elevated blood proteins (refer to note per Kg Petit PA-C from today). She appreciated the update and will discuss with Dr Hathaway. Yolanda Cobian RN [facility]09-12-2025 Miscellaneous Notes* Telephone Encounter - Yolanda [...] Hathaway's office Please return the call at [phone] KERRY Menendez documented in this encounterW[facility]09-12-2025 Telephone encounter Note * Telephone Encounter [...] Hathaway's office Please return the call at [phone] KERRY Menendez [facility]09-12-2025 Telephone encounter Note* Telephone Encounter - Yolanda Cobian RN - 07/10/2025 9:17 AM EDT Labs still pending. Yolanda Cobian RN [facility]09-10-2025 Telephone encounter Note* Telephone Encounter - Kayla Arriaga - 07/08/2025 11:23 AM EDT Please call Her daughter Marianna with today's lab results. [phone] [facility]09-09-2025 NoteHNO ID: [id number] Author: PAOLO CASILLAS APRN.[facility] Service: ? Author Type: Nurse Practitioner Type: [...] Never Vaping Use Vap (more content not included)...[facility]09-09-2025 History of Present illness Narrative* Paolo Casillas APRN.DIE ENGRAVING SUPERVISOR - 07/07/2025 5:54 PM EDT PATIENT [...] 06/23/2025. (Scanned) IgM elevated, M-protein 0.2, and [place]/Lambda ration 10.59. Will repeat labs today. Hemoglobin [...] shortness of breath and was hospitalized at [facility] treated for suspected pneumonia. Apparently it was later felt she had heart disease, and cardiac catheterization revealed severe coronary artery disease. She subsequently underwent stent placement at [facility]. April 2023 she developed severe shortness of breath and was hospitalized at [facility] 05/17/2023with CHF. She improved with diuresis but has ongoing dyspnea. Continue management per PCP/cardiology. 6. Anemia - ICD9: 285.9, ICD10: D64.9 Labs April 2023 revealed normocytic anemia with a hemoglobin approximately 9. Differential diagnosisincludes iron deficiency, B12 deficiency, folate deficiency, anemia chronic disease , or a bone marrow disorder. Will check additional labs and further evaluate as indicated. Paolo Casillas APRN.DIE ENGRAVING SUPERVISOR CC: Dr. Orlando Cortez spent a total of 40 minutes on the date of the service which included preparing to see the patient, uqun-yb-oend patient care, completing clinical documentation, obtaining and/or reviewing separately obtained history, performing a medically appropriate examination, counseling and educating the pat ient/family/caregiver, ordering medications, tests, or procedures, independently interpreting results (not separately reported), and communicating results to the patient/family/caregiver. documented in this encounterW[facility]09-08-2025 Telephone encounter Note * Telephone Encounter - Loree Rosado MA - 07/06/2025 9:31 AM EDT Patient coming Sunday07/08/25 for follow up labs. Please add lab orders. Thanks. Loree Rosado MA [facility]08-22-2025 Evaluation note* Diagnosis Onset Date Resolution Status [...] both lower extremitiesacuteOctober 2024 10:24amSkin tendernessdeletedOctober 2024 10:24am [facility] Work Phone: 1([phone] 461-193508-22-2025 Evaluation note* Diagnosis Onset Date Resolution Status [...] 11:39am Chronic bronchitisacuteOctober 2024 11:39amChronic kidney diseaseacute October 2024 11:39amChronic venous insufficiencyacuteOctober 2024 11:39amEssential hypertensionacuteOctober 2024 11:39amHypercholesterolemia acuteOctober 2024 11:39amMGUS (monoclonal gammopathy of unknown significance)acuteOctober 2024 11:39amRequires continuous at home supplemental oxygenacuteOctober 2024 11:39amAcute on chronic heart failure with preserved ejection fraction (HFpEF)noneactiveOctober 2024 11:39am [facility] Work Phone: 1([phone] 156-950207-22-2025 Evaluation note* Diagnosis Onset Date Resolution Status [...] 9:23amMedicare annual wellness visit, subsequentnoneactiveAugust 2024 9:23am [facility] Work Phone: 1([phone]) 432-100907-22-2025 Evaluation note* Diagnosis Onset Date Resolution Status [...] 2024 3:32pmChronic venous insufficiencyacuteSeptember 2024 3:32pmEssential hypertensionacute July 21, 2025 3:32pmGAD (generalized anxiety disorder)acuteSeptember 2024 3:32pmMGUS (monoclonal gammopathy of unknown significance)acute July 21, 2025 3:32pmObesityacuteSeptember 2024 3:32pmScreening mammogram for breast canceracuteSeptember 2024 3:32pmSubclinical hypothyroidismacuteSeptember 2024 3:32pmAcute on chronic heart failure with preserved ejection fraction (HFpEF)noneactiveSeptember 2024 3:32pm [facility] Work Phone: 1([phone] 298-202707-22-2025 Evaluation note* Diagnosis Onset Date Resolution Status Admit Date Acute bronchitis due to other specified organisms noneactiveJuly 2024 3:17pmAcute exacerbation of chronic obstructive airways diseasenoneactiveJuly 2024 3:17pmAnemiaacuteAugust 2024 9:23amASHD (arteriosclerotic heart disease)acuteAugust 2024 9:23amChronic bronchitisacuteAugust 2024 9:23amChronic kidney diseaseacuteAugust 2024 9:23amChronic venous insufficiencyacuteAugust 2024 9:23amEssential hypertensionacuteAugust 2024 9:23amGAD (generalized anxiety disorder)acute [place] 2024 9:23amGastroesophageal reflux disease with esophagitis without [...] with preserved ejection fraction (HFpEF)noneactiveSeptember 2024 3:32pm [facility] Work Phone: 1(336) 484-827305-16-2025 Evaluation note* Diagnosis Onset Date Resolution Status [...] preserved ejection fraction (HFpEF) noneactiveMay 2024 11:21am [facility] Work Phone: 1([phone] 625-353604-15-2025 History of Present illness Narrative* Reyna Esparza MD - 02/25/2025 9:00 AM EDT Subjective Patient ID: Lashaun Joaquin is a 84 y.o. female who presents for Thyroid Nodule (Follow ultrasound [facility] 02/10/25) US shows an 11mm nodule that is unchanged and mult subcentimeter nodules. No family history on file. Active Ambulatory Problems Diagnosis Date Noted Dry eyes 04/28/2024 Epiretinal membrane (ERM) of left eye 04/28/2024 Blepharitis of upper and lower eyelids of both eyes 04/28/2024 Abnormal cardiovascular stress test 11/24/2024 Adrenal nodule ([facility]) 11/24/2024 Anemia 11/24/2024 ASHD (arteriosclerotic heart disease) ([facility]) 10/17/2023 Atrophic vaginitis 11/24/2024 BMI 33.0-33.9,adult 03/05/2024 Cervical spondylosis with radiculopathy 11/24/2024 Chronic bronchitis ([facility]) 11/24/2024 Chronic heart failure with preserved ejection fraction (HFpEF) ([facility]) 11/24/2024 Chronic obstructive pulmonary disease with (acute) exacerbation ([facility]) 11/24/2024 Chronic venous insufficiency 11/24/2024 COVID 10/17/2023 Elevated serum immunoglobulin free light chain level 11/24/2024 Essential hypertension ([facility]) 10/17/2023 Flash pulmonary edema ([facility]) 11/24/2024 Former smoker 10/17/2023 OMAR (generalized anxiety disorder) ([facility]) 11/24/2024 Gastroesophageal reflux disease with esophagitis without hemorrhage 11/24/2024 Heart failure 11/24/2024 Palpitations 01/12/2025 Resolved Ambulatory Problems Diagnosis Date Noted No Resolved Ambulatory Problems Past Medical History: Diagnosis Date Arthritis Cataract Congestive heart failure (CHF) ([facility]) Coronary artery disease ([facility]) GERD (gastroesophageal reflux disease) Hypercholesteremia ([facility]) Hypertension ([facility]) Peripheral neuropathy Past [...] if stable documented in this encounterSaint John's Saint Francis HospitalXaatihjklt47-18-0843 Miscellaneous Notes* Telephone Encounter - Loree Rosado MA - 07/06/2025 9:31 AM EDT Patient coming Sunday07/08/25 for follow up labs. Please add lab orders. Thanks. Loree Rosado MA documented in this encounterW[facility]umed[facility]03-27-2025 Evaluation note* Diagnosis Onset Date Resolution [...] 11:21amSubclinical hypothyroidismacuteMay 2024 11:21amThyroid noduleacuteMay 2024 11:21am [facility] Work Phone: 1(752) 778-609703-17-2025 Evaluation + Plan note* Assessment & Plan Note - CINTIA Gallego - 01/12/2025 3:48 PM EDTAssociated Problem(s): Cardiac and Vasculature January 2024 TTE LVEF greater than 55% Biatrial enlargement mild [facility] Work Phone: 1([phone]) 675-769503-17-2025 Miscellaneous Notes* Assessment & Plan Note - [...] heart disease) March 09, 2023 Mid/proximal RCA PCI/[place] 4x15mm & 4x18mm Proximal diagonal PCI/[place] 2.5 x 18 mm LAD 10% Circumflex [...] hypertension Optimal in office documented in this [facility] Work Phone: [phone]) 631-305903-17-2025 Evaluation + Plan note* Assessment & Plan Note - CINTIA Gallego - 01/12/2025 3:47 PM EDTAssociated Problem(s): Hyperlipidemia High intensity statin January 2024 HDL 42, cholesterol 158 [facility] Work Phone: [phone]) 640-583103-17-2025 Evaluation + Plan note* Assessment & Plan Note - CINTIA Gallego - 01/12/2025 3:47 PM EDTAssociated Problem(s): ASHD (arteriosclerotic heart disease) March 09, 2023 Mid/proximal RCA PCI/[place] 4x15mm & 4x18mm Proximal diagonal PCI/[place] 2.5 x 18 mm LAD 10% Circumflex normal LVEF 65% February 2024 MPI ischemia, EF 88% Current daily activity at 4 METS without concerning symptoms [facility] Work Phone: [phone] Evaluation + Plan note* Assessment & Plan Note - CINTIA Gallego - 01/12/2025 3:46 PM EDTAssociated Problem(s): Palpitations Reports fairly daily episodes of hearing my heart thumping going into my ears No prior documented A-fib or arrhythmia. Was taken off of carvedilol January 2024 hospitalization due to bradycardia [facility] Work Phone: [phone] 401-563103-17-2025 Evaluation + Plan note* Assessment & Plan Note - CINTIA Gallego - 01/12/2025 3:46 PM EDTAssociated Problem(s): Essential hypertension Optimal in office [facility] Work Phone: [phone] History of Present illness Narrative* CINTIA Gallego [...] Echo ([place], diastolic dysfunction) Holden Rosado MSN, SENIOR TECHNICAL BUSINESS ANALYST-DIE ENGRAVING SUPERVISOR, PMHNP-[facility] [place], [place] Please excuse any errors in grammar or translation related to this dictation. Voice recognition software was utilized to prepare this document. documented in this [facility] Work Phone: [phone]) 708-582903-17-2025 Instructions* Patient Instructions* CINTIA Gallego - 01/12/2025 [...] Echo ([place], diastolic dysfunction) documented in this [facility] Work Phone: [phone]) 974-187101-28-2025 History of Present illness Narrative* Reyna Esparza MD - 11/25/2024 2:00 PM EST Subjective Patient ID: Lashaun Joaquin is a 84 y.o. female who presents for Thyroid Nodule Pt reports she had a thyroid US after being found to be mildly hypothyroid. US shows an 11mm mixed thyroid nodule. FNA performed that was [place] 1. No family H/O thyroid CA. No radiation exposure. Review of Systems All other systems reviewed and are negative. No family history on file. Active Ambulatory Problems Diagnosis Date Noted Dry eyes 04/28/2024 Epiretinal membrane (ERM) of left eye 04/28/2024 Blepharitis of upper and lower eyelids of both eyes 04/28/2024 Abnormal cardiovascular stress test 11/24/2024 Adrenal nodule (CMS/HCC) 11/24/2024 Anemia 11/24/2024 ASHD (arteriosclerotic heart disease) (CMS/HCC) 10/17/2023 Atrophic vaginitis 11/24/2024 BMI 33.0-33.9,adult 03/05/2024 Cervical spondylosis with radiculopathy 11/24/2024 Chronic bronchitis ([facility]) 11/24/2024 Chronic heart failure with preserved ejection fraction (HFpEF) ([facility]) 11/24/2024 Chronic obstructive pulmonary disease with (acute) exacerbation ([facility]) 11/24/2024 Chronic venous insufficiency 11/24/2024 COVID 10/17/2023 Elevated serum immunoglobulin free light chain level 11/24/2024 Essential hypertension ([facility]) 10/17/2023 Flash pulmonary edema ([facility]) 11/24/2024 Former smoker 10/17/2023 OMAR (generalized anxiety disorder) ([facility]) 11/24/2024 Gastroesophageal reflux disease with esophagitis without hemorrhage 11/24/2024 Heart failure ([facility]) 11/24/2024 Resolved Ambulatory Problems Diagnosis Date Noted No Resolved Ambulatory Problems Past Medical History: Diagnosis Date Arthritis Cataract Congestive heart failure (CHF) ([facility]) Coronary artery disease ([facility]) GERD (gastroesophageal reflux disease) Hypercholesteremia ([facility]) Hypertension ([facility]) Peripheral neuropathy Past [...] late December documented in this encounterSaint John's Saint Francis HospitalQqqcfiaapk11-47-3510 Chief complaint+Reason for visit Narrative* Chief Complaint [...] nodule December 16, 2024 10:20am [facility] Work Phone: 1([phone] 202-761501-20-2025 Chief complaint+Reason for visit Narrative * Chief Complaint Admit Date e04.1 November 17, 2024 9 :45am Referral Order November 19, 2024 1 2:33pm 3 month f/u-HIGH RISK December 16 10:20am UA, frequency, burning December 29, 2024 1 :19pm injured right knee yesterday January 22, 2025 9:51am Reason for Visit Admit Date Thyroid nodule November 17, 2024 9 :45am ASHD (arteriosclerotic heart disease) [facility] 2024 10:20am Chronic bronchitis December 16, 2024 [...] January 22, 2025 9:5 1am [facility] Work Phone: 1([phone]) 304-305001-20-2025 Evaluation note* Diagnosis Onset Date Resolution Status Admit Date Thyroid nodule acuteJanuary 2024 9:45amASHD (arteriosclerotic heart disease)acuteFebruary 2024 10:20amChronic bronchitisacuteFebruary 2024 10:20amChronic heart failure with preserved ejection fraction (HFpEF)acuteFebruary 2024 10:20amChronic kidney diseaseacuteFebruary 2024 10:20amChronic venous insufficiencyacuteFebruary 2024 10:20amEssential hypertensionacuteFebruary 2024 10:20amSubclinical hypothyroidismacuteFebruary 2024 10:20am Thyroid noduleacuteFebruary 2024 10:20am [facility] Work Phone: 1([phone] 338-903301-20-2025 Evaluation note* Diagnosis Onset Date Resolution Status Admit Date Thyroid nodule acuteJanuary 2024 9:45amASHD (arteriosclerotic heart disease)acuteFebruary 2024 10:20amChronic bronchitisacuteFebruary 2024 10:20amChronic heart failure with preserved ejection fraction (HFpEF)acuteFebruary 2024 10:20amChronic kidney diseaseacuteFebruary 2024 10:20amChronic venous insufficiencyacuteFebruary 2024 10:20amEssential hypertensionacuteFebruary 2024 10:20amSubclinical hypothyroidismacuteFebruary 2024 10:20am Thyroid noduleacuteFebruary 2024 10:20amChronic kidney diseaseacuteMarch 2024 9:51amNocturnal leg crampsacuteMarch 2024 9:51amRight knee pain acuteMarch 2024 9:51am [facility] Work Phone: 1([phone] 496-707312-11-2024 History of Present illness Narrative* Edinson Perry, - 10/08/2024 10:40 AM EST Subjective Lashaun [...] diastolic heart failure. She was hospitalized at [place] we were not involved in this. Her medications were changed, cluck carvedilol was discontinued and Entresto was initiated. She has supranormal left ventricular function with ejection fraction of 88% and normal perfusion scan February 2023. She did undergo primary PCI proximal RCA and diagonal branch in February 2023 for subsequentnon-ST elevation [place] event with preserved LV function. She is [...] Scribe Attestation By signing my name below, IRacquel LPN, Scribe attest that this documentation has [...] exam, discussion and plan. [facility] Phone: 1(735) 386-402012-11-2024 Instructions* Patient Instructions* Racquel Olivera LPN - [...] Provided instructions on exercise. documented in [facility]: 1([phone]) 465-498511-14-2024 Evaluation note* Diagnosis Onset Date Resolution Status Admit Date Anemia acuteAugember 2023 10:16amASHD (arteriosclerotic heart disease)acute November 2023 10:16amChronic bronchitisacuteNovember 2023 10:16am Chronic heart failure with preserved ejection fraction (HFpEF)acuteSeptember 11, 2024 10:16amChronic venous insufficiencyacuteNovember 2023 10:16am Essential hypertensionacuteNov2023 10:16amGAD (generalized anxiety disorder)acuteSeptember 11, 2024 10:16amHypercholesterolemiaacuteNovember 2023 10:16amSubclinical hypothyroidismacuteNov2023 10:16am [facility] Work Phone: 1(469) 156-969711-14-2024 Evaluation note* Diagnosis Onset Date Resolution Status Admit Date Anemia acuteNovember 2023 10:16amASHD (arteriosclerotic heart disease)acute November 2023 10:16amChronic bronchitisacuteNovember 2023 10:16am Chronic heart failure with preserved ejection fraction (HFpEF)acuteNov2023 10:16amChronic venous insufficiencyacuteNovember 2023 10:16am Essential hypertensionacuteNovember 2023 10:16amGAD (generalized anxiety disorder)acuteNovember 2023 10:16amHypercholesterolemiaacuteNovember 2023 10:16amSubclinical hypothyroidismacuteNovember 2023 10:16amThyroid noduleacuteJanuary 2024 9:45am [facility] Work Phone: 1([phone]) 784-407206-25-2024 Evaluation + Plan note* Assessment & Plan Note - CINTIA Gallego - 04/22/2024 11:58 AM EDTAssociated Problem(s): BMI 32.0-32.9,adult Reviewed the merits of healthy lifestyle choices on overall cardiovascular health. [facility] Work Phone: 1([phone]) 672-741006-25-2024 Evaluation + Plan note* Assessment & Plan Note - CINTIA Gallego - 04/22/2024 11:58 AM EDTAssociated Problem(s): Hyperlipidemia High intensity statin January 2024 HDL 42, cholesterol 158 [facility] Work Phone: 1(229) 144-359506-25-2024 Evaluation + Plan note* Assessment & Plan Note - CINTIA Gallego - 04/22/2024 11:58 AM EDTAssociated Problem(s): Essential hypertension Optimal in the office [facility] Work Phone: 1(154) 961-897106-25-2024 Evaluation + Plan note* Assessment & Plan Note - CINTIA Gallego - 04/22/2024 11:58 AM EDTAssociated Problem(s): ASHD (arteriosclerotic heart disease) March 09, 2023 Mid/proximal RCA PCI/[place] 4x15mm & 4x18mm Proximal diagonal PCI/[place] 2.5 x 18 mm LAD 10% Circumflex normal LVEF 65% February 2024 MPI ischemia, EF 88% Current daily activity at 4 METS without concerning symptoms [facility] Work Phone: [phone] 225-949506-25-2024 Miscellaneous Notes* Assessment & Plan Note - [...] RCA PCI/Willie 4x15mm & 4x18mm Proximal diagonal PCI/[place] 2.5 x 18 mm LAD 10% Circumflex normal LVEF 65% February 2024 MPI ischemia, EF 88% Current daily activity at 4 METS without concerning symptoms documented in this [facility] Work Phone: [phone]) 159-994606-24-2024 History of Present illness Narrative* CINTIA Gallego [...] heart disease) March 09, 2023 Mid/proximal RCA PCI/[place] 4x15mm & 4x18mm Proximal diagonal PCI/[place] 2.5 x 18 mm LAD 10% Circumflex [...] Dr. Perry 6 months Holden Rosado MSN, SENIOR TECHNICAL BUSINESS ANALYST-DIE ENGRAVING SUPERVISOR, PMHNP-[facility] Please excuse any errors in grammar or translation related to this dictation. Voice recognition software was utilized to prepare this document. [facility]: [phone]) 940-253106-24-2024 Instructions* Patient Instructions* CINTIA Gallego - 04/21/2024 [...] Dr. Perry 6 months [facility]: [phone]) 431-416305-09-2024 Evaluation + Plan note* Assessment & Plan Note - CINTIA Gallego - 03/06/2024 10:42 AM EDTAssociated Problem(s): BMI 32.0-32.9,adult Reviewed the merits of healthy lifestyle choices on overall cardiovascular health. [facility] Work Phone: [phone]) [phone] Evaluation + Plan note* Assessment & Plan Note - CINTIA Gallego - 03/06/2024 10:42 AM EDTAssociated Problem(s): Hyperlipidemia High intensity statin January 2024 HDL 42, cholesterol 158 [facility] Work Phone: [phone]) 675-249205-09-2024 Miscellaneous Notes* Assessment & Plan Note - [...] RCA PCI/Willie 4x15mm & 4x18mm Proximal diagonal PCI/[place] 2.5 x 18 mm LAD 10% Circumflex normal LVEF 65% [facility]: [phone] Evaluation + Plan note* Assessment & Plan Note - CINTIA Gallego - 03/06/2024 10:41 AM EDTAssociated Problem(s): Essential hypertension Optimal in office [facility] Work Phone: [phone] Evaluation + Plan note* Assessment & Plan Note - CINTIA Gallego - 03/06/2024 10:41 AM EDTAssociated Problem(s): ASHD (arteriosclerotic heart disease) March 09, 2023 Mid/proximal RCA PCI/Willie 4x15mm & 4x18mm Proximal diagonal PCI/[place] 2.5 x 18 mm LAD 10% Circumflex normal LVEF 65% [facility] Work Phone: [phone] History of Present illness Narrative* CINTIA Gallego - 03/05/2024 11:30 AM EDT Chief Complaint I am just not feeling good Reason for Visit Patient presents to the office today for outpatient follow-up for hospital follow-up. Last evaluated in clinic by Dr. Perry September 2023. January 2024: Hospitalized at [facility] due to accelerated hypertension and bradycardia. [...] contact the office if new symptoms arise. FAMILY DENTIST after testing Holden Rosado MSN, THONY-DANIELA, PMHNP-BC [facility] Please excuse any errors in grammar or translation related to this dictation. Voice recognition software was utilized to prepare this document. documented in this [facility] Work Phone: [phone]) 368-633005-08-2024 Instructions* Patient Instructions* CINTIA Gallego - 03/05/2024 [...] contact the office if new symptoms arise. FAMILY DENTIST after testing documented in this [facility] Work Phone: [phone]) 260-646401-30-2024 Evaluation note* Encounter Date Diagnosis Assessment Notes Treatment Notes Treatment Clinical Notes Oct, Primary insomnia (ICD-10 - F51.0 1) [facility] Other 01-05-2024 Evaluation note* Encounter Date Diagnosis Assessment Notes Treatment Notes Treatment Clinical Notes Oct, ASHD (arteriosclerotic heart dis ease) (ICD-10 - I25.10) This patient is stable without activity related CP, dyspnea or lightheadedness. They are instructedto continue exercise and AHA diet plan. Continue secondary prevention measures. Oct,hronic diastolic heart failure (ICD-10 - I50.32)Echocardiogram: 2022 [...] in remission (ICD-10 - F17.211) Continue abstinence [facility] Other 12-05-2023 Evaluation note* Encounter Date Diagnosis [...] and feet daily for blisters and ulcerations. [facility] Other 11-29-2023 Evaluation note* Encounter Date Diagnosis Assessment Notes Treatment Notes Treatment Clinical Notes Aug, Chronic venous insufficiency (IC D-10 - I87.2) [facility] Other 11-24-2023 Evaluation note* Encounter Date Diagnosis Assessment Notes Treatment Notes Treatment Clinical Notes Aug, Subacute cough (ICD-10 - R05.2) Aug,yspnea on exertion (ICD-10 - R06.09) [facility] Other 11-20-2023 Evaluation note* Encounter Date Diagnosis Assessment Notes Treatment Notes Treatment Clinical Notes Aug, Chronic venous insufficiency (IC D-10 - I87.2) [facility] Other 11-16-2023 Evaluation note* Encounter Date Diagnosis Assessment Notes Treatment Notes Treatment Clinical Notes Aug, Chronic venous insufficiency (IC D-10 - I87.2) [facility] Other 11-14-2023 Evaluation note* Encounter Date Diagnosis Assessment Notes Treatment Notes Treatment Clinical Notes Aug, Acute bronchitis due to other sp ecified organisms (ICD-10 - J20.8) Instructed to use Robitussin or Mucinex for cough, saline or Flonase NS for congestion, Tylenol forpain and fever. Aug,hronic obstructive pulmonary disease with (acute) exacerbation (ICD-10 - J44.1)Begin using EDEL as needed to mobilize secretions. [facility] Other 10-19-2023 Evaluation note* Encounter Date Diagnosis Assessment Notes Treatment Notes Treatment Clinical Notes Jul, Aphthous ulcer (ICD-10 - K12.0) [facility] Other 09-20-2023 Evaluation note* Encounter Date Diagnosis Assessment Notes Treatment Notes Treatment Clinical Notes Jun, Dysuria (ICD-10 - R30.0) [facility] Other 09-19-2023 Evaluation note* Encounter Date Diagnosis Assessment Notes Treatment Notes Treatment Clinical Notes Jun, Dysuria (ICD-10 - R30.0) [facility] Other 08-28-2023 Evaluation note* Encounter Date Diagnosis Assessment Notes Treatment Notes Treatment Clinical Notes May, Chronic venous insufficiency (IC D-10 - I87.2) [facility] Other 08-24-2023 Evaluation note* Encounter Date Diagnosis Assessment Notes Treatment Notes Treatment Clinical Notes May, Primary insomnia (ICD-10 - F51.0 1) [facility] Other 08-21-2023 Evaluation note* Encounter Date Diagnosis Assessment Notes Treatment Notes Treatment Clinical Notes May, Diastolic hypertension (ICD-10 - I10) [facility] Other 08-18-2023 Evaluation note* Encounter Date Diagnosis Assessment Notes Treatment Notes Treatment Clinical Notes May, Primary hypertension (ICD-10 - I 10) [facility] Other 08-18-2023 Evaluation note* Encounter Date Diagnosis Assessment Notes Treatment Notes Treatment Clinical Notes May, Diastolic hypertension (ICD-10 - I10) [facility] Other 08-11-2023 Evaluation note* Encounter Date Diagnosis [...] and feet daily for blisters and ulcerations. [facility] Other 08-09-2023 Miscellaneous Notes* Telephone Encounter - [...] further discuss then. documented in this encounterCleveland [id number] History of Present illness Narrative* Luis Mckenzie [...] shortness of breath and was hospitalized at [facility] and treated for suspected pneumonia. Apparently it was later felt she had heart disease, and cardiac catheterization revealed severe coronary artery disease. She dumont bsequently underwent stent placement at [facility]. Apparently her shortness of breath persisted, and [...] shortness of breath and was hospitalized at [facility] treated for suspected pneumonia. Apparently it was later felt she had heart disease, and cardiac catheterization revealed severe coronary artery disease. She subsequently underwent stent placement at [facility]. April 2023 she developed severe shortness of breath and was hospitalized at [facility] 05/17/2023with CHF. She improved with diuresis but [...] MD CC: Dr. Perry documented in this [facility] Evaluation note* Encounter Date Diagnosis Assessment [...] dependence, cigarettes, in remission (ICD-10 - F17.211) [facility] Other 07-21-2023 Discharge summary Author Lj Ryan [facility] May 18, 2023 11:44amNote Date/TimeJuly 2022 11:44[place] [address] Discharge Summary Signed Patient: Lashaun Joaquin MR#: [id number] : 1940 Acct:[id number] Age/Sex: 82 / F Adm Date: 3 Loc: Room: [address] [place] [address]: Lj Ryan DO Copies to: [...] Sodium 142, Potassium 4.0, Chloride 103, Carbon Tichjlv98.5, Anion Gap 12.5, BUN 21, Creatinine 1.37 H, Est GFR (CKD-EPI) 39.034, Glucose 94, Calcium 8.9,Phosphorus 5.3, Magnesium 2.1 05/18/23 05:58: Corrected WBC 6.0, Uncorrected WBC Count 6.0, RBC 3.21 L, Hgb 9.7 L, Hct 28.2 L, MCV 87.7, MCH 30.2, MCHC 34.4, RDW 14.1, Plt Count 314, MPV 7.8, Neut % (Auto) 73.6, Lymph % (Auto) 15.1, [place] % (Auto) 8.7, Eos % (Auto) 1.9, Baso % (Auto) 0.7, Nucleat RBC Rel Count 0.1, Neut # (Auto)4.4, Lymph # (Auto) 0.9 L, [place] # (Auto) 0.5, Eos # (Auto) 0.1, [...] signed by Lj Ryan DO> 05/18/23 1144 [facility] Work Phone: [phone] History and physical note Author Lj Ryan [facility] May 17, 2023 3:56pmNote Date/TimeJuly 2022 3:49pm[place] [address] Hospitalist H&P Signed Patient: Lashaun Joaquin MR#: [id number] : 1940 Acct:[id number] Age/Sex: 82 / F Adm Date: 3 Loc: 3T Room: [address] [place] [address] Type: ADM INOo Attending Dr: Lj Ryan [...] negative unless noted below or in HPI [facility] Medical History (Updated 05/17/23 @ 15:50 [...] % (Auto) 9.3 % (.) 05/17/23 10:25 [place] % (Auto) 5.5 % (.) 05/17/23 10:25 Eos % (Auto) 0.5 % (.) 05/17/23 10:25 Baso % (Auto) 0.5 % (.) 05/17/23 10:25 Nucleat RBC Rel Count 0.0 /100 WBC (0-0.5) 05/17/23 10:25 Neut # (Auto) 8.6 x10E3/uL (1.8-7.7) H 05/17/23 10:25 Lymph # (Auto) 1.0 x10E3/uL (1.00-4.8) 05/17/23 10:25 [place] # (Auto) 0.6 x10E3/uL (0.0-0.8) 05/17/23 10:25 [...] 1 Documented By: Lj Ryan DO 05/17/23 154 Signed By: <Electronically signed by Lj Ryan DO> 05/17/23 2621 [facility] Work Phone: [phone] Evaluation note* Encounter Date Diagnosis Assessment Notes [...] index [BMI] 33.0-33.9, adult (ICD-10 - Z68.33) [facility] Other 07-12-2023 Evaluation note* Encounter Date Diagnosis [...] dependence, cigarettes, in remission (ICD-10 - F17.211) [facility] Other 06-29-2023 Evaluation note* Encounter Date Diagnosis Assessment Notes Treatment Notes Treatment Clinical Notes Mar, Paronychia of finger of right gagnon nd (ICD-10 - L03.011) [facility] Other 06-29-2023 Evaluation note* Encounter Date Diagnosis [...] and healthy diet. Mar,aresthesias (ICD-10 - R20.2) [facility] Other 06-21-2023 Evaluation note* Encounter Date Diagnosis [...] post PCI/stent placement. Continue for 12 months [facility] Other 06-21-2023 Evaluation note* Encounter Date Diagnosis Assessment Notes Treatment Notes Treatment Clinical Notes Mar, Chronic bronchitis, simple (ICD- 10 - J41.0) [facility] Other 05-30-2023 Evaluation note* Encounter Date Diagnosis Assessment Notes Treatment Notes Treatment Clinical Notes February, Paresthesias (ICD-10 - R20.2) [facility] Other 05-18-2023 Evaluation note* Encounter Date Diagnosis [...] Titrate Gabapentin and monitor for fluid retention [facility] Other 05-08-2023 Evaluation note* Encounter Date Diagnosis Assessment Notes Treatment Notes Treatment Clinical Notes February, Primary hypertension (ICD-10 - I 10) February,hronic venous insufficiency (ICD-10 - I87.2) [facility] Other 04-19-2023 Evaluation note* Encounter Date Diagnosis [...] pain, change in appetite or bowel habits [facility] Other 04-16-2023 Evaluation note* Encounter Date Diagnosis Assessment Notes Treatment Notes Treatment Clinical Notes Jan, Essential hypertension (ICD-10 - I10) ECHOCARDIOGRAM - 01/2023 1. LVEF is 65%. 2. Normal right ventricular size and systolic function, elevated RVSP 3. Grade 2 diastolic dysfunction. 4. Mild to moderate mitral regurgitation. Jan,ulmonary hypertension (ICD-10 - I27.20) Jan,cute on chronic diastolic heart failure (ICD-10 - I50.33) [facility] Other 04-07-2023 Evaluation note* Encounter Date Diagnosis [...] E78.01)Diet and exercise with continued statin therapy. [facility] Other 02-23-2023 Evaluation note* Encounter Date Diagnosis Assessment Notes Treatment Notes Treatment Clinical Notes Nov, Primary insomnia (ICD-10 - F51.0 1) [facility] Other 02-16-2023 Evaluation note* Encounter Date Diagnosis [...] mammogram for breast cancer (ICD-10 - Z12.31) [facility] Other 02-06-2023 History of Present illness Narrative* [...] PCP. Luis Mckenzie MD documented in this encounterW[facility]-17-[facility] Evaluation note* Encounter Date Diagnosis Assessment [...] or drinking prior to bedtime. Weight loss. [facility] Other 11-01-2022 Miscellaneous Notes* Telephone Encounter - [...] in November MARBIN Freeman documented in this encounterW[facility]10-31-2022 History of Present illness Narrative* Nancy [...] 28, 2022 12:49 PM documented in this encounterW[facility]08-01-2022 History of Present illness Narrative* Luis [...] PCP. Luis Mckenzie MD [facility] Narrative - Reported * LASHAUN JOAQUIN is being seen for a consultation for abnormal test(s) results. * 82-year-old female seen in cardiology consultation at the request of Dr. Natalio hathaway for recent episode of respiratory distress, what sounds like congestive heart failure associated with accelerated hypertension, was admitted to [place] briefly, diuresed approximately 14 pounds with diuretics. [...] and proceed with heart cath this Sunday [facility] [address] DO Work Phone: Evaluation note* Diagnosis Abnormal SPEP- Primary Other nonspecific findings on examination of blood Neuropathy - (NOS) 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 Lung nodules Other nonspecific abnormal finding of lung field documented in this encounter [facility]Evalun[facility] foundation note* Diagnosis Abnormal SPEP- Primary Other nonspecific findings on examination of blood Neuropathy - (NOS) Lung nodules Other nonspecific abnormal finding of lung field documented in this encounter [facility] HospitalEvalunem[facility] foundation noteNo InformationNort Ranch [employer] Other Evaluation noteNo assessment information available [facility] Work Phone: Evaluation note* Diagnosis Onset Date Resolution Status Flash pulmonary edema acuteHeart failureacuteHypertensionacuteHypertensive emergencyacuteHypoxiaacute [facility] Work Phone: Evaluation note* Diagnosis Abnormal SPEP- Primary Other nonspecific findings on examination of blood Anemia, unspecified type Neuropathy - (NOS) Heart disease Heart disease, unspecified documented in this encounter [facility]Evalun[facility] note* Diagnosis Onset Date Resolution Status ASHD (arteriosclerotic heart disease) acuteChronic diastolic heart failureacuteChronic venous insufficiencyacute Elevated cholesterolacuteEssential hypertensionacuteGAD (generalized anxiety disorder)acuteGastroesophageal reflux disease with esophagitis without hemorrhageacuteMGUS (monoclonal gammopathy of unknown significance)[facility] Work Phone: Evaluation note* Diagnosis Onset Date Resolution Status ASHD (arteriosclerotic heart disease) acuteChronic diastolic heart failureacuteChronic venous insufficiencyacute Elevated cholesterolacuteEssential hypertensionacuteGAD (generalized anxiety disorder)acuteGastroesophageal reflux disease with esophagitis without hemorrhageacuteMGUS (monoclonal gammopathy of unknown significance)acuteMedicare annual wellness visit, subsequentnoneactiveEustachian tube dysfunctionacute Right otitis mediaacute [facility] Work Phone: Evaluation note* Diagnosis ASHD (arteriosclerotic heart disease)- Primary Coronary atherosclerosis of unspecified type of vessel, [facility] ira or graft Essential hypertension Unspecified essential hypertension Mixed hyperlipidemia BMI 32.0-32.9,adult documented in this encounter [facility] Work Phone: Evaluation note* Diagnosis Onset Date Resolution Status ASHD (arteriosclerotic heart disease) acuteChronic diastolic heart failureacuteChronic venous insufficiencyacute Elevated cholesterolacuteEssential hypertensionacuteGAD (generalized anxiety disorder)acuteGastroesophageal reflux disease with esophagitis without hemorrhageacuteMGUS (monoclonal gammopathy of unknown significance)acuteMedicare annual wellness visit, subsequentnoneactiveEustachian tube dysfunctionacute Right otitis mediaacuteASHD (arteriosclerotic heart disease)acuteChronic diastolic heart failureacuteChronic venous insufficiencyacuteEssential hypertensionacuteGAD (generalized anxiety disorder)acuteSubclinical hypothyroidismacute [facility] Work Phone: Evaluation note* Diagnosis ASHD (arteriosclerotic heart disease) Coronary atherosclerosis of unspecified type of vessel, [facility] ira or graft documented in this encounter [facility] Work Phone: Evaluation note* Diagnosis Onset Date Resolution Status Anemia acuteASHD (arteriosclerotic heart disease)acuteChronic diastolic heart failure acuteChronic venous insufficiencyacuteEssential hypertensionacuteGAD (generalized anxiety disorder)acuteSubclinical hypothyroidismacute [facility] Work Phone: Evaluation note* Diagnosis 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 Lung nodules Other nonspecific abnormal finding of lung field documented in this encounter [facility]* Diagnosis Onset Date Resolution Status Admit Date Anemia acuteNov2023 10:16amASHD (arteriosclerotic heart disease)acute September 11, 2024 10:16amChronic bronchitisacuteNovember 2023 10:16am Chronic heart failure with preserved ejection fraction (HFpEF)acuteNov2023 10:16amChronic venous insufficiencyacuteNov2023 10:16am Essential hypertensionacuteNovember 2023 10:16amGAD (generalized anxiety disorder)acuteNovember 2023 10:16amHypercholesterolemiaacuteNovember 2023 10:16amSubclinical hypothyroidismacuteNovember 2023 10:16am [facility] Work Phone: Evaluation note* Diagnosis Essential hypertension- Primary Unspecified essential hypertension ASHD (arteriosclerotic heart disease) Coronary atherosclerosis of unspecified type of vessel, [facility] ira or graft Mixed hyperlipidemia BMI 32.0-32.9,adult documented in this encounter [facility] Work Phone: Evaluation note* Diagnosis ASHD (arteriosclerotic heart disease)- Primary Coronary atherosclerosis of unspecified type of vessel, [facility] ira or graft Essential hypertension Unspecified essential hypertension Mixed hyperlipidemia BMI 32.0-32.9,adult Essential hypertension- Primary Unspecified essential hypertension ASHD (arteriosclerotic heart disease) Coronary atherosclerosis of unspecified type of vessel, [facility] ira or graft Mixed hyperlipidemia BMI 32.0-32.9,adult ASHD (arteriosclerotic heart disease) Coronary atherosclerosis of unspecified type of vessel, [facility] ira or graft Essential hypertension Unspecified essential hypertension BMI 33.0-33.9,adult Former smoker Personal history of tobacco use, presenting hazards to health S/P PTCA (percutaneous transluminal coronary angioplasty) Postsurgical percutaneous transluminal coronary angioplasty status Mixed hyperlipidemia Coronary arteriosclerosis after percutaneous transluminal coronary angioplasty (PTCA) documented in this encounter [facility] Work Phone: Evaluation note* Diagnosis Thyroid nodule (CMS/HCC)- Primary Nontoxic uninodular goiter [facility]* Diagnosis ASHD (arteriosclerotic heart disease)- Primary Coronary atherosclerosis of unspecified type of vessel, [facility] ira or graft Essential hypertension Unspecified essential hypertension Mixed hyperlipidemia BMI 32.0-32.9,adult Essential hypertension- Primary Unspecified essential hypertension ASHD (arteriosclerotic heart disease) Coronary atherosclerosis of unspecified type of vessel, [facility] ira or graft Mixed hyperlipidemia BMI 32.0-32.9,adult BMI 33.0-33.9,adult- Primary Essential hypertension Unspecified essential hypertension Palpitations ASHD (arteriosclerotic heart disease) Coronary atherosclerosis of unspecified type of vessel, [facility] ira or graft Mixed hyperlipidemia documented in this encounter [facility] Work Phone: Evaluation note* Diagnosis Nontoxic multinodular goiter (CMS/HCC)- Primary Nontoxic multinodular goiter [facility] Diagnosis ASHD (arteriosclerotic heart disease)- Primary Coronary atherosclerosis of unspecified type of vessel, [facility] ira or graft Essential hypertension Unspecified essential hypertension Mixed hyperlipidemia BMI 32.0-32.9,adult Essential hypertension- Primary Unspecified essential hypertension ASHD (arteriosclerotic heart disease) Coronary atherosclerosis of unspecified type of vessel, [facility] ira or graft Mixed hyperlipidemia BMI 32.0-32.9,adult BMI 33.0-33.9,adult- Primary Essential hypertension Unspecified essential hypertension Palpitations ASHD (arteriosclerotic heart disease) Coronary atherosclerosis of unspecified type of vessel, [facility] ira or graft Mixed hyperlipidemia Essential hypertension Unspecified essential hypertension Palpitations documented in this encounter [facility] Work Phone: Evaluation note* Diagnosis Abnormal SPEP- Primary Other nonspecific findings on examination of blood documented in this encounter [facility]* Diagnosis Abnormal SPEP- Primary Other nonspecific findings on examination of blood Primary hypertension Unspecified essential hypertension Hyperlipidemia, unspecified hyperlipidemia type Heart disease Heart disease, unspecified Edema, unspecified type 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 Anemia in other chronic diseases classified elsewhere documented in this encounter [facility] general Narrative - Reported* Type Description [...] History MalaiseMedical HistoryExogenous obesityMedical HistoryAnemiaSurgical History catarac [id number] Historysee surgical history [facility] Other History general Narrative - Reported* Type [...] History MalaiseMedical HistoryExogenous obesityMedical HistoryAnemiaSurgical History catarac [id number] HistoryPCI/stent RCA and diagonal br02/2023Hospitalization Historysee surgical history [employer] [facility] [employer] Other Hospital Discharge instructions Additional Instructions Please [...] your blood pressure in the hospital.[facility] Work Phone: Hospital Discharge instructionsAmbulatory Orders* Referral to ENT Time Frame: 11/19/24, Location: None [facility] Work Phone: Reason for referral (narrative)* Consultation (Routine) - AuthorizedSpecialtyDiagnoses / ProceduresReferred By Contact Referred To ContactCardiology Diagnoses ASHD (arteriosclerotic heart disease) Procedures Follow Up In Cardiology Holden Rosado APRN-CNP [address] [facility] [address], [address] [address] Referral IDStatSanjayStart DateExpiration DateVisits RequestedVisits [id number]/8/20245/8/202511 * Cardiac Stress Testing (Routine) - Pending ReviewSpecialtyDiagnoses / ProceduresReferred By ContactReferred To ContactRadiology Diagnoses ASHD (arteriosclerotic heart disease) Procedures Nuclear Stress Test CHG MYOCARDIAL SPECT MULTIPLE STUDIES Holden Rosado APRN-CNP [address] [facility] [address], [address] [place] [address] Referral IDStatusReasonStart DateExpiration DateVisits RequestedVisits [id number] Review [facility] Work Phone: Reason for referral (narrative)* Consultation (Routine) - AuthorizedSpecialtyDiagnoses / ProceduresReferred By Contact Referred To ContactCardiology Diagnoses ASHD (arteriosclerotic heart disease) Procedures Follow Up In Cardiology Holden Rosado APRN-CNP [address] [facility] [address], [address] [address] Referral IDStatusReasonStart DateExpiration DateVisits RequestedVisits [id number]/24/20246/ [facility] Work Phone: Reason for referral (narrative)No reason for referral information availableMer[facility] Health [facility] Work Phone: Reason for visit Narrative* CV Imaging (Routine) - AuthorizedSpecialtyDiagnoses / ProceduresReferred By ContactReferred To ContactCardiology Diagnoses Essential hypertension Palpitations Procedures Transthoracic Echo Complete GA ECHO TTHRC R-T 2D W/WOM-MODE COMPL SPEC&COLR D Holden Rosado APRN-CNP [facility] [facility] [address], [address] [address] Phone: tel: fax: Referral IDStatusReasonStart DateExpiration DateVisits RequestedVisits [id number] Perform Procedure [facility] Work Phone: Advance Directives TypeDate RecordedPatient RepresentativeExplanationAdvance [...] COMPUTED TOMOGRAPHY THORAX W/CONTRAST Luis Mckenzie MD [address] [place] [address] [address], [place] [address] Ct Imaging Referral IDStatusReasonStart DateExpiration DateVisits RequestedVisits [id number] Auto-Generated Referral [id number] / ProceduresReferred By ContactReferred To ContactCT IMAGING Diagnoses Disorder of adrenal gland (HCC) Procedures CT ABD/PEL W IVCON CT ABD & PELVIS W/CONTRAST Luis Mckenzie MD [address] [place] [address] [place] [address] Ct Imaging Referral IDStatusReasonStart DateExpiration DateVisits RequestedVisits [id number] Auto-Generated Referral [id number] / ProceduresReferred By ContactReferred To ContactRadiology Diagnoses ASHD (arteriosclerotic heart disease) Procedures Nuclear Stress Test CHG MYOCARDIAL SPECT MULTIPLE STUDIES Holden Rosado, SENIOR TECHNICAL BUSINESS ANALYST-DIE ENGRAVING SUPERVISOR [facility] [facility] [address], [address] [address] Referral IDStatusReasonStpetaca DateExpiration DateVisits RequestedVisits [id number] [id number] / Procedures Referred By ContactReferred To ContactCT IMAGING Diagnoses Lung nodules Procedures CT CHEST W IVCON DIAGNOSTIC COMPUTED TOMOGRAPHY THORAX W/CONTRAST Luis Mckenzie MD [address] [place] [address] [place] [address] [place] [address] Referral IDStatusReasonStart DateExpiration DateVisits RequestedVisits [id number] Auto-Generated Referral [id number] / ProceduresReferred By ContactReferred To ContactCT IMAGING Diagnoses Disorder of adrenal gland (HCC) Procedures CT ABD/PEL W IVCON CT ABD & PELVIS W/CONTRAST Luis Mckenzie MD [address] [place] [address] [place] [address] [place] [address] Referral IDStatusReasonStart DateExpiration DateVisits RequestedVisits [id number] Auto-Generated Referral Family History Unknown Family Member [...] ear ache Amb Documentation [facility] FOLLOW UP [id number] for VisitASHD (arteriosclerotic heart disease) Chronic diastolic [...] 23am Screening mammogram for breast cancer [facility] 2024 9:23am Subclinical hypothyroidism June 19, 2025 [...] 9: 23am ASHD (arteriosclerotic heart disease) [facility] 2024 9:23am Chronic bronchitis June 19, 2025 [...] 23am Screening mammogram for breast cancer [facility] 2024 9:23am Subclinical hypothyroidism June 19, 2025 [...] 2025 3:32pm Chronic kidney disease July 21, 2 [...] 9: 23am ASHD (arteriosclerotic heart disease) [facility] 2024 9:23am Chronic bronchitis June 19, 2025 [...] 23am Screening mammogram for breast cancer [facility] 2024 9:23am Subclinical hypothyroidism June 19, 2025 9:23am Thyroid nodule June 19, 2025 9: 23am Acute on chronic heart failu re with preserved ejection fraction (HFpEF) June 19, 2025 9:23am Medicare annual wellness visit, subseque nt June 19, 2025 9:23am ASHD (arteriosclerotic heart disease) Se ptember 2024 3:32pm Chronic kidney disease July 21 2 025 3:32pm Chronic venous insufficiency June 302024 3:32pm 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) July 21, 2025 3:32pm Acute on chronic heart failu re with preserved ejection fraction (HFpEF) July 21, 2025 3:32pm Chief Complaint Admit Date wellness/3 mo f/u June 19, 2025 9: 23am leg swelling/sores July 21, 2025 3:32pm VENOUS INSUFFICIENCY W ULCERS, EDEMA [facility] 2024 10:24am Amb Documentation August 11, 2025 1 :26pm Amb Documentation August 17, 2025 9 :42am I87.2 G25.81 R60.0 [id number] I83.893 Octobe r 2024 7:55am Reason for Visit Admit Date Anemia June 19, 2025 9: 23am ASHD (arteriosclerotic heart disease) [facility] 20[facility] 9:23am Chronic bronchitis June 19, [...] 9: 23am Screening mammogram for [facility] cancer [facility] 2024 9:23am Subclinical hypothyroidism June 19, 2025 [...] Skin tenderness August 04, 2025 10 :24am Chief Complaint Admit Date wellness/3 mo f/u June 19, 2025 9: 23am leg swelling/sores July 21, 2025 3:32pm VENOUS INSUFFICIENCY W ULCERS, EDEMA [facility] [place] 2024 10:24am Amb Documentation August 11, 2025 1 :26pm Amb Documentation August 17, 2025 9 :42am I87.2 G25.81 R60.0 [id number] I83.893 Octobe r 2024 7:55am [facility] hosp f/u-HIGH RISK August 21 11:39am Reason for Visit Admit Date Anemia June 19, 2025 9: 23am ASHD (arteriosclerotic heart disease) [facility] 2024 9:23am Chronic bronchitis June 19, 2025 [...] 23am Screening mammogram for breast cancer [facility] 2024 9:23am Subclinical hypothyroidism June 19, 2025 9:23am Thyroid nodule June 19, 2025 9: 23am Acute on chronic heart failu re with preserved ejection fraction (HFpEF) June 19, 2025 9:23am Medicare annual wellness visit, subseque nt June 19, 2025 9:23am ASHD (arteriosclerotic heart disease) Se ptember 2024 3:32pm Chronic kidney disease Radha 23rd, 2 025 3:32pm Chronic venous insufficiency June [...] ejection fraction (HFpEF) August 21, 2025 11:39am Additional Source Comments Source Comments (unrecognize d section and content) In the event this informatio n is protected by the Federal Confidentiality of Alcohol and Drug Abuse Patient Records regulations: The Federal rules restrict any use of the information to criminally investigate or prosecute any alcohol or drug abuse patient.[facility] the event this information is protected by the Federal Confidentiality of Alcohol and Drug Abuse Patient Records regulations: The Federal rules restrict any use of the information to criminally investigate or prosecute any alcohol or drug abuse patient.[facility] HospitalIn the event this information is protected by the Federal Confidentiality of Alcohol and Drug Abuse Patient Records regulations: The Federal rules restrict any use of the information to criminally investigate or prosecute any alcohol or drug abuse patient.[facility] HospitalIn the event this information is protected by the Federal Confidentiality of Alcohol and Drug Abuse Patient Records regulations: The Federal rules restrict any use of the information to criminally investigate or prosecute any alcohol or drug abuse patient.[facility] HospitalIn the event this information is protected by the Federal Confidentiality of Alcohol and Drug Abuse Patient Records regulations: The Federal rules restrict any use of the information to criminally investigate or prosecute any alcohol or drug abuse patient.[facility] HospitalIn the event this information is protected by the Federal Confidentiality of Alcohol and Drug Abuse Patient Records regulations: The Federal rules restrict any use of the information to criminally investigate or prosecute any alcohol or drug abuse patient.[facility] HospitalIn the event this information is protected by the Federal Confidentiality of Alcohol and Drug Abuse Patient Records regulations: The Federal rules restrict any use of the information to criminally investigate or prosecute any alcohol or drug abuse patient.[facility] HospitalIn the event this information is protected by the Federal Confidentiality of Alcohol and Drug Abuse Patient Records regulations: The Federal rules restrict any use of the information to criminally investigate or prosecute any alcohol or drug abuse patient.[facility] HospitalIn the event this information is protected by the Federal Confidentiality of Alcohol and Drug Abuse Patient Records regulations: The Federal rules restrict any use of the information to criminally investigate or prosecute any alcohol or drug abuse patient.[facility] HospitalIn the event this information is protected by the Federal Confidentiality of Alcohol and Drug Abuse Patient Records regulations: The Federal rules restrict any use of the information to criminally investigate or prosecute any alcohol or drug abuse patient.[facility] HospitalIn the event this information is protected by the Federal Confidentiality of Alcohol and Drug Abuse Patient Records regulations: The Federal rules restrict any use of the information to criminally investigate or prosecute any alcohol or drug abuse patient.[facility] Reason for Visit (unrecogniz ed section and content) ReasonCommentsLab OrdersReasonCommentsabnormal spepReasonCommentsResultsReason CommentsAbnormal SPEPReasonCommentsFollow-upbradycardiaSpecialtyDiagnoses / ProceduresReferred By ContactReferred To ContactRadiology Diagnoses ASHD (arteriosclerotic heart disease) Procedures Nuclear Stress Test CHG MYOCARDIAL SPECT MULTIPLE STUDIES Holden Rosado, SENIOR TECHNICAL BUSINESS ANALYST-DIE ENGRAVING SUPERVISOR [address] [facility] [address], [facility] [address] [place] [address] Referral IDStatusReasonStart DateExpiration DateVisits RequestedVisits [id number] [id number] CT SpecialtyDiagnoses / ProceduresReferred By ContactReferred To ContactCT IMAGING Diagnoses Lung nodules Procedures CT CHEST W IVCON DIAGNOSTIC COMPUTED TOMOGRAPHY THORAX W/CONTRAST Luis Mckenzie MD [address] [place] [address] [place] [address] Ct [facility] [place] [address] Referral IDStatusReasonStart DateExpiration DateVisits RequestedVisits [id number] Auto-Generated Referral /[id number]-yaQvnt resultxSpecialtyDiagnoses / ProceduresReferred By ContactReferred To ContactCardiology Diagnoses ASHD (arteriosclerotic heart disease) Procedures Follow Up In Cardiology Edinson Perry, DO [address] [facility] [address], [address] [address] Holden Rosado, SENIOR TECHNICAL BUSINESS ANALYSTDIE ENGRAVING SUPERVISOR [address] [facility] [address], [address] [address] Referral IDStatusReasonStart DateExpiration DateVisits RequestedVisits [id number]/20/202312/[id number]-zi4 month SpecialtyDiagnoses / ProceduresReferred By ContactReferred To ContactCardiology Diagnoses ASHD (arteriosclerotic heart disease) Procedures Follow Up In Cardiology Holden Rosado, SENIOR TECHNICAL BUSINESS ANALYST-DIE ENGRAVING SUPERVISOR [address] [facility] [address], [address] [address] Phone: tel: fax: Referral IDStatusReasonStart DateExpiration DateVisits RequestedVisits [id number]/24/20246/[id number] DateCommentsMed Wdurdo354ReasonCommentsThyroid NoduleSpecialtyDiagnoses / Procedures Referred By ContactReferred To ContactOtolaryngology Diagnoses Nontoxic single thyroid nodule (CMS/HCC) Procedures [facility] UNLISTED [facility]ALUATION AND MANAGEMENT SERVICE Nathan Hathaway MD [address] [place] [address] Phone: tel: Renya Esparza MD [address] [facility] [address] [place] [address] Phone: tel: fax: Referral IDStatusReasonStart DateExpiration DateVisits RequestedVisits [id number]/22/20257/[id number]-mo8 months Follow up for Coronary Artery DiseaseSpecialtyDiagnoses / ProceduresReferred By ContactReferred To ContactCardiology Diagnoses Essential hypertension Procedures Follow Up In Cardiology Edinson Perry, DO [address] [facility], [address] [place] [address] Phone: tel: fax: Alonzo Holden K, SENIOR TECHNICAL BUSINESS ANALYST-DIE ENGRAVING SUPERVISOR [address] [place] [address] Phone: tel: fax: Referral IDStatusReasonStart DateExpiration DateVisits RequestedVisits [id number]/11/202412/034896WabgwcTkkjmrtsNqrrabp Nodule Follow ultrasound [facility] 02/10/25ReasonCommentsLab OrdersntReasonCommentsOrders Patient UpdateReasonCommentsAbnormal SPEPFOLLOW UP Care Teams (unrecognized sec tion and content) Team Status: Active Member Role Status Hortencia Hathaway DO Primary Care Provider Active Team [...] Active Start: March 05, 2024 End: March 05fausto Rosado APRNAttami ProviderActiveStart: March 05, 2024 End: March 05, 2024 Team Status: Active Member Role Status Dates Nathan Hathaway DO Primary Care Provider Active Start: December 18, 2023 BRYAN SunshineAAttami ProviderActiveStart: December 18, 2023 Team Status: Inactive [...] Date Nathan Hathaway DO PCP - GeneralInternal Medicine01/31/12 Team Status: Inactive Member Role Status Dates Jonna Prery , DO Attending Provider Active VIANEY Pradoribossmany Care ProviderActive Team Status: Inactive Member Role Status Dates Nathan Hathaway , DO Primary Care Provider Active Isaac Qucikralina ProviderActiveLj Ryan , DOAdmit Provider, Attending ProviderActiveTeam MemberRelationshipSpecialtyStart DateEnd Date FransicoNathan, PCP - [facility]01/31/12Team MemberRelationshipSpecialtyStart Date End Date FransicoNathan, [facility] - [facility]01/31/12 Team Status: Active Member Role Status Dates Nathan Hathaway DO Primary Care Provide r, Attending Provider Active Start: February 02, 2024 Team Status: Inactive Member Role Status Dates Nathan Hathaway DO Primary Care Provider Active Start: February 13, 2024 End: February 13, 2024Djea Pope APRN FAMILY DENTIST-CAttending ProviderActive Start: February 13, 2024 End: February 13, 2024Team MemberRelationshipSpecialtyStart DateEnd Date FransicoNathan Chinyere, [facility] - [facility]10/03/23 Team Status: Active Member Role Status [...] Date Nathan Hathaway DO PCP - GeneralInternal Tptflnxt50/6/23am MemberRelationshipSpecialtyStart Date End Date Nathan Hathaway DO PCP - GeneralInternal Pbcabsvb26/6/23Team MemberRelationshipSpecialtyStart Date End Date Nathan Hathaway DO PCP - GeneralInternal Dcxiopku10/6/23am MemberRelationshipSpecialtyStart Date End Date Nathan Hathaway DO PCP - GeneralInternal Fndhilrb51/6/23Team MemberRelationshipSpecialtyStart Date End Date Nathan Hathaway DO PCP - GeneralInternal Medicine01/31/12Team MemberRelationshipSpecialtyStart Date End Date Nathan Hathaway DO PCP - GeneralInternal Rkrsalil41/6/23Team MemberRelationshipSpecialtyStart Date End Date Nathan Hathaway DO PCP - GeneralInternal Aayobvre66/6/23Team MemberRelationshipSpecialtyStart Date End Date Nathan Hathaway MD [address] [place] [address] PCP - External PCPInternal Medicine06/29/23Team MemberRelationshipSpecialtyStart DateEnd Date Nathan Hathaway MD [address] [facility] [place] [address] PCP - External PCPInternal Medicine06/29/23Team MemberRelationshipSpecialtyStart DateEnd Date Nathan Hathaway MD [address] [facility] [place] [address] PCP - External PCPInternal Medicine06/29/23Team MemberRelationshipSpecialtyStart DateEnd Date Nathan Hathaway DO PCP - GeneralInternal Dgmskitd39/6/23 Team Status: Inactive Member Role Status Dates Nathan Hathaway DO Primary Care Provide r, Attending Provider Active Start: January 22, 2025 End: January 22, 2025Team MemberRelationshipSpecialtyStart DateEnd Date Nathan Hathaway MD [address] [facility] [place] [address] PCP - GeneralInternal Medicine02/10/25Team MemberRelationshipSpecialtyStart Date End Date Nathan Hathaway DO [address] [facility] [place] [address] PCP - GeneralInternal Medicine02/10/25Team MemberRelationshipSpecialtyStart Date End Date Nathan Hathaway DO [address] [facility] [place] [address] PCP - GeneralInternal Medicine02/10/25Team MemberRelationshipSpecialtyStart Date End Date Nathan Hathaway DO [address] [place] [address] [facility] Team Status: Active Member Role Status Hortencia Hathaway DO Primary Care Provide r, Attending Provider Active Start: January 23, 2025 Team Status: Inactive Member Role Status Hortencia Hathaway DO Primary Care Provider Active Start: February 12, 2025 End: February 12hector Cruz , Emergency ProviderActiveStart: February 12, 2025 End: February 12, [...] Care Provider Active Start: March 18, 2025 Zaida Prado ProviderActiveStart: March 18, 2025 Team Status: Inactive Member Role Status Hortencia Hathaway DO Primary Care Provider Active Start: March 19, 2025 End: March 19rob Hathaway DOAttending ProviderActiveStart: March 19, 2025 End: March 19, 2025 Team Status: Inactive Member Role Status Hortencia Hathaway DO Primary Care Provider Active Start: May 19, 2025 End: May 19rob Hathaway DOAttending ProviderActiveStart: May 19, 2025 End: May 19, 2025 Team Status: Inactive Member Role Status Hortencia Hathaway DO Primary Care Provider Active Start: June 19, 2025 End: June 19rob Hathaway DOAttending ProviderActiveStart: June 19, 2025 End: June 19, 2025Team MemberRelationshipSpecialtyStart DateEnd Date Nathan Hathaway DO PCP - GeneralInternal Medicine01/31/12Team MemberRelationshipSpecialtyStart Date End Date Nathan Hathaway DO PCP - GeneralInternal Medicine01/31/12Team MemberRelationshipSpecialtyStart Date End Date Nathan Hathaway DO PCP - GeneralInternal Medicine01/31/12 Team Status: Active Member Role Status Dates Nathan Hathaway DO Primary Care Provider Active Start: June 23, 2025 Nathan Hathaway DOAttending ProviderActiveStart: June 23, 2025 Team Status: Active Member Role Status Dates Nathan Hathaway DO Primary Care Provider Active Start: June 24, 2025 Ntahan Hathaway DOAttending ProviderActiveStart: June 24, 2025 Team Status: Active Member Role Status Dates Nathan Hathaway DO Primary Care Provider Active Start: July 08, 2025 Fanny Bedoya APRN FAMILY DENTIST-CAttending ProviderActiveStart: July 08, 2025 Team Status: Active Member Role Status Dates Nathan Hathaway DO Primary Care Provider Active Start: July 15, 2025 Valentin eLonard MDAttending ProviderActiveStart: July 15, 2025 Team Status: Inactive Member Role Status Dates Nathan Hathaway DO Primary Care Provider Active Start: July 21, 2025 End: July 21enalberta Hathaway DOAttending ProviderActiveStart: July 21, 2025 End: July 21, 2025 Team Status: Inactive Member Role Status Dates Nathan Hathaway DO Primary Care Provider Active Start: August 04, 2025 End: August 04, 2025Kaia Krishna FAMILY DENTIST-CAttending ProviderActiveStart: August 04, 2025 End: August 04, 2025 Team Status: Active Member Role/Relationship Status Dates Nathan Hathaway DO Primary Care Provider Active Team Status: Inactive Member Role/Relationship Status Dates Nathan Hathaway DO Primary Care Provider Active Start: June 19, 2025 End: June 19enjamin Ball , DOAttending ProviderActiveStart: June 19, 2025 End: June 19, 2025 Team Status: Active Member Role/Relationship Status Dates Nathan Hathaway DO Primary Care Provider Active Start: June 23, 2025 Nathan Hathaway , DOAttending ProviderActiveStart: June 23, 2025 Team Status: Active Member Role/Relationship Status Dates Nathan Hathaway DO Primary Care Provider Active Start: June 24, 2025 Nathan Hathaway , DOAttending ProviderActiveStart: June 24, 2025 Team Status: Active Member Role/Relationship Status Dates Nathan Hathaway DO Primary Care Provider Active Start: July 08, 2025 Fanny Bedoya APRN FAMILY DENTIST-CAttending ProviderActiveStart: July 08, 2025 Team Status: Active Member Role/Relationship Status Dates Nathan Hathaway DO Primary Care Provider Active Start: July 15, 2025 Valentin Leonard , MDAttending ProviderActiveStart: July 15, 2025 Team Status: Inactive Member Role/Relationship Status Dates Nathan Hathaway DO Primary Care Provider Active Start: July 21, 2025 End: July 21rob Hathaway , DOAttending ProviderActiveStart: July 21, 2025 End: July 21, 2025 Team Status: Inactive Member Role/Relationship Status Dates Nathan Hathaway DO Primary Care Provider Active Start: August 04, 2025 End: August 04, 2025Kaia Krishna , FAMILY DENTIST-CAttending ProviderActiveStart: August 04, 2025 End: August 04, 2025 Team Status: Active Member Role/Relationship Status Dates Nathan Hathaway DO Primary Care Provider Active Start: August 10, 2025 Cher Singh , DOAttending ProviderActiveStart: August 10, 2025 Team Status: Active Member Role/Relationship Status Dates Nathan Hathaway DO Primary Care Provider Active Start: August 11, 2025 Agueda Fields , MDAttending ProviderActiveStart: August 11, 2025 Team Status: Active Member Role/Relationship Status Dates Nathan Hathaway DO Primary Care Provider Active Start: August 11, 2025 Susana Cortes , CMAAttending ProviderActiveStart: August 11, 2025 Team Status: Active Member Role/Relationship Status Dates Nathan Hathaway DO Primary Care Provider Active Start: August 14, 2025 Seth Dupree , DOAttending ProviderActiveStart: August 14, 2025 Team Status: Active Member Role/Relationship Status Dates Nathan Hathaway Primary Care Provider Active Start: August 15, 2025 Riteshfrancisco Kg DoeMonica pinoending ProviderActiveStart: August 15, 2025 Team Status: Active Member Role/Relationship Status Dates Nathan Hathaway Primary Care Provider Active Start: August 16, 2025 Chrispito Monica Howardending ProviderActiveStart: August 16, 2025 Team Status: Active Member Role/Relationship Status Dates Nathan Hathaway DO Primary Care Provider Active Start: August 17, 2025 Susana Cortes CMAAttending ProviderActiveStart: August 17, 2025 Team Status: Inactive Member Role/Relationship Status Dates Nathan Hathaway DO Primary Care Provider Active Start: August 19, 2025 End: August 19, 2025QUYNH LopezCAttending ProviderActiveStart: August 19, 2025 End: August 19, 2025 Team Status: Inactive Member Role/Relationship Status Dates Nathan DO Fransico Primary Care Provider Active Start: August 21, 2025 End: August 21enalberta Fransico , Attending ProviderActiveStart: August 21, 2025 End: August 21, 2025 INFORMATION SOURCE (unrecogn ized section and content) DATE CREATED AUTHOR 03/08/2023 [facility] DATE CREATED AUTHOR AUTHOR'S ORGANIZ ATION 03/09/2023 [employer] DATE CREATED AUTHOR AUTHOR'S ORGANIZ ATION 03/11/2023 [facility] DATE CREATED AUTHOR AUTHOR'S ORGANIZ ATION 02/26/2025 [facility] DATE CREATED AUTHOR AUTHOR'S ORGANIZ ATION 03/26/2025 [facility] DATE CREATED AUTHOR AUTHOR'S ORGANIZ ATION 03/26/2025 [facility] DATE CREATED AUTHOR AUTHOR'S ORGANIZ ATION 07/19/2025 [facility] DATE CREATED AUTHOR AUTHOR'S ORGANIZ ATION 08/21/2025 [facility] Goals (unrecognized section and content) Goals may [...] BE BASED ON THE PRIMARY CLINICAL RECORDS. [employer] [facility]. provides no warranty or guarantee of the accuracy or completeness of information in this document.
[2025-08-25 12:45] LABS: Hematocrit 24.0 % (36.0-48.0); Hemoglobin 8.3 g/dL (12.0-16.0); Immature Granulocytes Abs Auto 0.02 10^3/uL (0.00-0.03); Immature Granulocytes Pct Auto 0.4 % (0.0-0.5); Lymphocytes Absolute Auto 0.6 10^3/uL (1.2-3.8); Mean Corpuscular HGB Conc 34.6 g/dL (29.9-35.2); Mean Corpuscular Hemoglobin 28.8 pg (26.7-34.0); Mean Corpuscular Volume 83.3 fL (81.0-99.0); Platelet Count 316 10^3/uL (150-450); Red Blood Count 2.88 10^6/uL (4.20-5.40); White Blood Count 4.6 10^3/uL (4.0-11.0)
[2025-08-25 13:18] LABS: Ferritin 256.0 ng/mL (8.0-252.0); Folate 18.90 ng/mL (8.60-58.90)
[2025-08-25 15:21] LABS: Alanine Aminotransferase 23 U/L (14-59); Albumin Globulin Ratio 1.1; Albumin Level 3.2 g/dL (3.4-5.0); Alkaline Phosphatase 50 U/L (46-116); Anion Gap 10.6; Aspartate Amino Transferase 18 U/L (15-37); Blood Urea Nitrogen 51.0 mg/dL (7.0-18.0); Calcium 9.0 mg/dL (8.5-10.1); Carbon Dioxide 31.8 mmol/L (21.0-32.0); Chloride 85 mmol/L (98-107); Estimated GFR (African America 35 (>=60 mL/min/1.73m^2); Estimated GFR (Non-African Ame 29 (>=60 mL/min/1.73m^2); Globulin 3.0 g/dL; Glucose 82 mg/dL (74-106); NT Pro B Type Natriuretic Pept 898.0 pg/mL (<=1800.0); Potassium 5.4 mmol/L (3.5-5.1); Thyroid Stimulating Hormone 3.230 uIU/mL (0.358-3.740); Total Protein 6.2 g/dL (6.4-8.2)
[2025-08-25 15:42] LABS: Sodium 122 mmol/L (136-145)
[2025-08-26 07:08] LABS: Vitamin B12 1448 pg/mL (232-1245)
== END 2025-08-25 11:10 | disposition home or self-care (01) ==
LOC: LAB 11:13
PROVIDERS: PCP Internal Medicine; Visit Provider Internal Medicine
DX: N18.32 Chronic kidney disease, stage 3b (principal); D64.9 Anemia, unspecified
CPT/HCPCS: 36415; 80053; 82607; 82728; 82746; 83880; 84443; 85025

== ENCOUNTER 2025-08-25 17:22 | Inpatient (IN) | payer MEDICARE, SELFPAY ==
[2025-08-25] VITALS (10 sets, daily range): BP systolic 143–154; BP diastolic 50–54; PULSE 44–61; TEMP 36.4–36.7; O2SAT 90–96; BMI 35.3
--- OUTSIDE RECORDS SUMMARY | 2025-08-25 17:57 | XMS_ITS | Clinical Summary ---
Author Organization [facility] Address [address] [place] [address] Phone Care Team Providers Care Typing Office Worker Name Role Phone aNthan Bateman DO Primary Care Provider [phone] Allergies Active AllergyReactionsCriticalityNoted DateComments Sulfamethoxazole-SrjzdhvysuufClulg01/12/8402TbwvozpjsoznXzsplwjb58/20/2023 Tongue swelling Medications MedicationSigDispense QuantityRefillsLast FilledStart DateEnd [...] every 12 hours.5Active Active Problems ProblemNoted DateDiagnosed LsazQeummazclmqy18/17/2025 Assessment & Plan (01/12/2025 3:48 PM EDT): Reports fairly daily episodes of hearing my heart thumping going into my ears No prior documented A-fib or arrhythmia. 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 (PTCA)10/08/20240194Dipbvyppcozcmi08/08/2024 Assessment & Plan (01/12/2025 3:47 PM EDT): [...] PM EDT): March 09, 2023 Mid/proximal RCA PCI/[place] 4x15mm & 4x18mm Proximal diagonal PCI/[place] 2.5 x 18 mm LAD 10% Circumflex normal LVEF 65% February 2024 MPI ischemia, EF 88% Current daily activity at 4 METS without concerning symptoms Assessment & Plan (04/22/2024 11:58 AM EDT): March 09, 2023 Mid/proximal RCA PCI/[place] 4x15mm & 4x18mm Proximal diagonal PCI/[place]ie 2.5 x 18 mm LAD 10% Circumflex normal LVEF 65% February 2024 MPI ischemia, EF 88% Current daily activity at 4 METS without concerning symptoms Assessment & Plan (03/06/2024 10:41 AM EDT): March 09, 2023 Mid/proximal RCA PCI/[place] 4x15mm & 4x18mm Proximal diagonal PCI/[place] 2.5 x 18 mm LAD 10% Circumflex normal LVEF 65% Essential dcleyrkocdat80/20/2023 Assessment & Plan (01/12/2025 3:46 PM EDT): Optimal in office Assessment & Plan (04/22/2024 11:58 AM EDT): Optimal in the office Assessment & Plan (03/06/2024 10:41 AM EDT): Optimal in office Shortness of pmvnhv9010/17/20231719OCMCP75/20/2023Former iajnxg0610/17/2023 Encounters DateTypeDepartmentCare HjlbJywvormajxs72/17/2025Scanned Document [facility] [address] [place] [address] Scanning, Generic Provider from Last [...] InformationValueDate RecordedSex Assigned at BirthNot on fileLegal YzfOcqdzq21/08/2023 12:05 PM EDTGender IdentityNot on fileSexual OrientationNot on file Last Filed Vital Signs Vital SignReadingTime TakenCommentsBlood Yowhohzs878/6005 10:42 AM EDT Quoxv5193/17/2025 11:10 AM EDTTemperature--Respiratory Rate--Oxygen Saturation-- Inhaled Oxygen Concentration--Tspkfx58.7 kg (200 lb)03/17/2025 10:42 AM EDT Ahkcqo401.1 cm (5' 5 )03/17/2025 10:42 AM EDTBody Mass Index33.28003/17/2025 10:42 AM EDT Plan of Treatment DateTypeDepartmentCare Team (Latest Contact Info)Xpvseuvwzhh89/30/2025 11:00 AM EDTOffice Visit [address] [phone] Edinson Perry DO [address] [place] [address] [address] [place] [address] 10/27/2025 2:10 PM ESTOffice Visit [address] [phone] Edinson Perry DO [address] [place] [address] [address], [address] [place], [place] [phone] Health MaintenanceDue DateLast DoneCommentsCreatinine Level1942Lipid Panel 1942Medicare Annual Wellness Visit (AWV)2Potassium Level 1942TSH Level2Diabetes Wmxklwgqr29/20/1960CKD: Urine Protein Nzhgxjzyd49/20/1961DTaP/Tdap/Td Vaccines (1 - Tdap)1964Bone Density Scan 2007RSV High Risk: (Elderly (60+) or Population) (1 - 1-dose 75+ series)2017Zoster Vaccines (2 of 2)/, 05/21/2021 Influenza Vaccine (#1)/, 08/06/2023, 08/11/2022, Additional history existsCOVID-19 Vaccine (2024- season)/04/2025, 09/15/2022, 01/28/20227074Uahjjtfupzfgmq27/20/755451/, 3Pneumococcal HeznkvlOjpmftsls72/16/2015, 08/11/2010HIB VaccinesAged OutNo longer eligible based on [...] topic Procedures Procedure NamePriorityDate/TimeAssociated DiagnosisCommentsTRANSTHORACIC ECHO (TTE) YUFKHBNJLzahple48/20/2025 11:35 AM EDT Essential hypertension Palpitations from Last 3 Months or Most Recently Relevant to Health Maintenance Results * TRANSTHORACIC ECHO (TTE) COMPLETE (03/17/2025 11:35 AM EDT)ComponentValueRef RangeTest MethodAnalysis TimePerformed AtPathologist SignatureAV mn xeac8wyTp SYNGOAV pk vel1.40m/sSYNGOLV Biplane EF55%SYNGOLVOT diam2.06cmSYNGOMV E/A ratio1.48SYNGOMV avg E/e' ratio17.94SYNGOLA vol index A/L42.1ml/g1STXTXBO EF63 %SYNGORV free wall pk S'16.27cm/zQXIHTMVPM83.3zfIbOYACCPNBId5.11cmSYNGOAortic Valve Area by Continuity of Peak Velocity1.22ii7KTNPULX pk uuyr4pcFfGYBSK Aortic Valve Area by Continuity of VTI2.68jj0ZNFWSQX A4C EF64.6SYNGOSpecimen (Source)Anatomical Location / LateralityCollection Method / VolumeCollection TimeReceived Time03/17/2025 10:43 AM EDT Narrative SYNGO - 03/18/2025 6:52 PM EDT ?[address], Suite [facility] [place], [place] [address] ? TRANSTHORACIC ECHOCARDIOGRAM REPORT Patient Name: ?LASHAUN WHALEY ? Reading Physician: ?[address] [place], [place] [address]an ?Malena MANCINI, ?[facility] Study Date: ?03/17/2025 ?Ordering Provider: ?[id number] HOLDEN K ?ROSADO MRN/PID: ? [id number] ? Fellow: Accession#: ?[id number] ? Nurse: Date of /Age: ?? 1940 / ?Motor Coach Chauffeur: ?Nicolasa Tobias ? years ?RDCS, RVT Gender Assigned at ?? F ?Additional Staff: : Height: ?165.10 cm ?Admit Date: Weight: ?90.72 kg ? Admission Status: BSA / BMI: ? 1.98 m2 / 33.28 ?Department Location: ??[facility] ? kg/m2 ?[facility] [place] Blood Pressure: 120 /64 mmHg Study Type: ?TRANSTHORACIC ECHO (TTE) COMPLETE Diagnosis/ICD: Essential (primary) hypertension-I10; Palpitations-R00.2 Indication: ?CAD, PTCA-2022, Edema, Hyperlipidemia, Former Smoker CPT Codes: ? Echo Complete w Full Doppler-31876 Study Detail: The following Echo studies were [...] (0.6-0.9m/s) AORTA: Asc Ao Diam 2.73 cm [id number] Bryce Guy MD, [facility] Electronically signed on 03/18/2025 at 6:52:27 PM Final Procedure Note Bryce Guy MD - 03/18/[address], [address] [place] [address] TRANSTHORACIC ECHOCARDIOGRAM REPORT Patient Name: LASHAUNJacky Doherty Physician: [id number] Zurita [facility] In[facility] Study Date: 03/17/2025 Ordering Provider: [id number] ROSADO MRN/PID: [id number] Fellow: Nurse: Date of /Age: 11 1940 Motor Coach Chauffeur: Carlos Eduardo taylor RDCS,RVT Gender Assigned at F Additional Staff: : Height: 165.10 cm Admit Date: Weight: 90.72 kg Admission Status: BSA / BMI: 1.98 m2 / 33.28 Department [facility] Blood Pressure: 120 /64 mmHg Study Type: TRANSTHORACIC ECHO (TTE) COMPLETE Diagnosis/ICD: Essential (primary) hypertension-I10; Palpitations-R00.2 Indication: CAD, PTCA-2022, Edema, Hyperlipidemia, Former Smoker CPT Codes: Echo Complete w Full Doppler-97002 Study Detail: The following Echo studies were [...] (0.6-0.9m/s) AORTA: Asc Ao Diam 2.73 cm [id number] Bryce Guy MD, [facility] Electronically signed on 03/18/2025 at 6:52:27 PM Final Authorizing ProviderResult TypeResult StatusHolden Rosado SIGN LANGUAGE INTERPRETER-CNPCV ECHO PROCEDURESFinal ResultPerforming OrganizationAddressCity/State/ZIP CodePhone Number SYNGO from Last 3 Months or Most Recently Relevant to Health Maintenance Insurance Care Teams Team MemberRelationshipSpecialtyStart DateEnd [place] [address] PCP - GeneralInternal Medicine03/09/25
--- OUTSIDE RECORDS SUMMARY | 2025-08-25 17:57 | XMS_ITS | Clinical Summary ---
Author Organization [facility] Address [address] [place] [address] Care Team Providers Care Photocopying Equipment Mechanic Name Role Phone Nathan Bateman DO Primary Care Provider [phone] Allergies Active AllergyReactionsCriticalityNoted OfikWvzjlndxQxdvgwgcbfq69/08/2024 Other Reaction(s): Unknown Puxdsxyhrm31/29/2021 Other Reaction(s): Unknown, Unknown Reaction LppdgmdjetrySwktykym84/20/2023 Other Reaction(s): rash Tongue swelling Uxjnsrs5202/13/2024 Other Reaction(s): Unknown Reaction Fnzlimboghs17/29/2021 Other Reaction(s): Rash, Unknown, Unknown Reaction Sulfamethoxazole-UgzrrjzvgpbtCldvy05/29/2021 Other Reaction(s): Unknown Medications MedicationSigDispense QuantityRefillsLast FilledStart [...] BY MOUTH DAILY02/12/2025tive Active Problems ProblemNoted DateDiagnosed YtrrFtqrdfnjftzh90/17/2025bnormal cardiovascular stress test11/24/2024 Overview (11/24/2024): Problem List clean-up per request of Phys. EHR Cmte Adrenal aovmqv0411/24/20244164Oyqeba30/27/2025trophic wjvgedarz44/27/2025ervical spondylosis with paqkgbxnhaxcx85/27/2025hronic sidiigvoku20/27/2025hronic heart failure with preserved ejection fraction (HFpEF)11/24/2024 Overview (11/24/2024): - LHC w/ PCI/stent LAD, RCA (Feb, 2023) - Echo w/ LVEF 60%, ELY, normal RV size/function, RVSP 41 - 01/2024 Chronic obstructive pulmonary disease with (acute) udqyanxmlcej22/27/2025hronic venous xhaffxgwahklm45/27/2025Elevated serum immunoglobulin free light chain level11/24/2024Flash pulmonary edema11/24/2024 Overview (11/24/2024): Problem List clean-up per request of Phys. EHR Cmte OMAR (generalized anxiety disorder)11/24/2024Gastroesophageal reflux disease with esophagitis without utsdrmqjpl06/27/2025Heart skrdvpc5911/24/2024 Overview (11/24/2024): Problem List clean-up per request of Phys. EHR Cmte Dry eyes04/28/2024Epiretinal membrane (ERM) of left eye04/28/2024lepharitis of upper and lower eyelids of both eyes04/28/2024MI 33.0-33.9,adult03/05/2024SHD (arteriosclerotic heart disease)10/17/2023 Overview (11/24/2024): C w/ PCI/stent LAD, RCA (Feb, 2023) COVID10/17/2023Essential xjydjjogciqd88/20/2023 Overview (11/24/2024): Problem List clean-up per request of Phys. EHR Cmte Former yfkctz6110/17/2023 Family History RelationNameStatusCommentsFatherDeceasedMotherDeceased Social History Tobacco UseTypesPacks/DayYears UsedDateSmoking Tobacco: FormerCigarettesQuit: 1992Smokeless Tobacco: Never Tobacco Cessation:Counseling Given: Not Answered CommentsUnknownSex and Gender InformationValueDate RecordedSex Assigned at BirthNot on fileLegal SgqWgfsak01/15/2023 7:00 PM EDTGender IdentityNot on fileSexual OrientationNot on file Last Filed Vital Signs Vital SignReadingTime TakenCommentsBlood Wqkhbcjp402/59002/25/2025 8:46 AM EDT Flovw4598/30/2025 8:46 AM EDTTemperature--Respiratory Rate--Oxygen Saturation-- Inhaled Oxygen Concentration--Vgoerx62.5 kg (195 lb)02/25/2025 8:46 AM EDTHeight 165.1 cm (5' 5 )02/25/2025 8:46 AM EDTBody Mass Index32.45002/25/2025 8:46 AM EDT Plan of Treatment Health MaintenanceDue DateLast DoneCommentsInfluenza Vaccine (#1)06/29/2025 07/16/2024, 08/06/2023, 08/11/2022, Additional history existsPneumococcal Vaccine: 65+ LgrxfJfrlpfqkf41/16/2015, 08/11/2010 Insurance Care Teams Team MemberRelationshipSpecialtyStart DateEnd Date Nathan Bateman DO [address] [place] [phone] PCP - GeneralInternal Medicine02/10/25
--- OUTSIDE RECORDS SUMMARY | 2025-08-25 17:57 | XMS_ITS | Encounter Summary ---
Author Organization [facility] Address [address] [place] [address] Phone Care Team Providers Care Clinical Implementation Specialist Name Role Phone Nathan Bateman DO Primary Care Provider [phone] Encounter Details DateTypeDepartmentCare Team (Latest Contact Info)Kvkciwziurv34/17/2025Scanned Document [facility] [address] [place] [phone] Scanning, Generic Provider Social History Tobacco UseTypesPacks/DayYears UsedDateSmoking Tobacco: FormerCigarettesQuit: 1980Smokeless Tobacco: NeverAlcohol UseStandard Drinks/WeekCommentsNever0 (1 standard drink = 0.6 oz pure alcohol)CommentsUnknownSex and Gender InformationValueDate RecordedSex Assigned at BirthNot on fileLegal SexFemale 03/05/2023 12:05 PM EDTGender IdentityNot on fileSexual OrientationNot on file documented as of this encounter Plan of Treatment DateTypeDepartmentCare Team (Latest Contact Info)Ekjnurjuive74/30/2025 11:00 AM EDTOffice Visit [address] [place] [phone] Edinson Perry DO [address] [place] [address] 2, [address] [place] [address] 10/27/2025 2:10 PM ESTOffice Visit [address] [place] [phone] Edinson Perry DO [address] [place] [address] 2, [address] [place], [place] [phone] documented as of this encounter Visit Diagnoses Not on filedocumented in this encounter Additional Health Concerns AssessmentNoted TimeA fall risk assessment has been completed for the patient 01/12/2025 11:11 AM EDTdocumented as of this encounter Care Teams Team MemberRelationshipSpecialtyStart DateEnd Date Nathan Bateman DO [address] [place] [address] PCP - GeneralInternal Medicine03/09/25documented as of this encounter
--- OUTSIDE RECORDS SUMMARY | 2025-08-25 17:58 | XMS_ITS | CCD ---
Author Organization [facility] CliniSyma Care Team Providers Care Rn Critical Care Name Role Phone Nathan Hathaway DO Primary [...] Provider Nathan Hathaway MD Unavailable Ball DO, Nahtan Primary Care Provider Fransico DO, Nathan Attending Provider Ball DO, Nathan Whitlock Primary Care Provider Fransico DO, Nathan Primary Care Provider Ball DO, Nathan Attending Provider Nathan Hathaway MD Primary Care Provider Ball DO, Nathan Whitlock Primary Care Provider REYNA ESPARZA Attending Unavailable NATHAN HATHAWAY E Referring Unavailable REYNA ESPARZA Attending Unavailable FERCHO TSE Attending Unavailable Fransico REILLY, Nathan Whitlock Primary Care Provider Fransico REILLY, Nathan Primary Care Provider Keister , Jorge L [facility] Emergency Provider [phone] HOLDEN ROSADO Attending Unavailable EDINSON PERRY Referring [...] Referring Unavailable Fanny Bedoya APRN Attending Provider [phone] Lucia MANCINI, Valentin Jackson Attending Provider Shelbi CASTRO-CKaia Attending Provider [phone] Ball DO, Nathan Primary Care Provider [phone] Ball DO, Nathan Attending Provider [phone] Samantha DOCher Attending Provider Diamond MANCINI, Agueda Saul Attending Provider Susana Cortes CMA Attending Provider Unavaila ble Seth Dupree DO Attending Provider [phone] Ball, Nathan Primary Care Unavailable Ball, Nathan Attending Unavailable Fransico, Nathan Admitting Unavailable Ball, Nathan Primary Care Unavailable Keister, Jorge L A Admitting Unavailable Keister, Jorge L A Attending Unavailable Fransico, Nathan Primary Care Unavailable Kaia Krishna Admitting Unavailable Kaia Krishna Attending Unavailable Allergies Allergy ClassificationReported Allergen(s)Allergy TypeDate of OnsetReaction(s) Facility (20 sources)amLODIPine; Translations: [AMLODIPINE]Drug Lxqqamw04-75-3543Ldzqnil [facility] (12 sources)Codeine / guaiFENesin; Translations: [CODEINE-GUAIFENESIN]Drug Viooaxr09-97-8030GaxuodqYwogsocma Clinic (12 sources)Doxycycline; Translations: [DOXYCYCLINE HYCLATE]Drug Allergy 22-00-5133YzwftxcFdnstvjmm Clinic (20 sources)DULoxetine; Translations: [DULOXETINE]Drug Jcwmqvd14-93-8791Fhazuts [facility] (20 sources)levoFLOXacin; Translations: [LEVOFLOXACIN]Drug Hehfagm63-00-5962 UnknownSelect [facility] ([facility] sources)Ondansetron; Translations: [ONDANSETRON]Drug Pxmwsgw16-71-4413 [facility] CenterComment on above:Onset Date: 10/29/2019 (20 sources)Penicillins; Translations: [PENICILLINS]Propensity to adverse reactions to utzm42-09-0424GmiqiioQmmkrkbla Clinic (20 sources)Sulfamethoxazole / Trimethoprim; Translations: [Bactrim]Drug Allergy 11-04-8127[facility]ajqodGenesis Hospital (8 sources)Tetracycline (class of antibiotic); Translations: [TETRACYCLINES] Propensity to adverse reactions to qplh19-83-8152FbbaqxzUbjrazckc Clinic (12 sources)Iodine And Iodide Containing Products; Translations: [IODINE AND IODIDE CONTAINING PRODUCTS]Drug Ssdzjid93-17-9104VjcnzwwEwdhcmafh Clinic (20 sources)Tetanus And Diphtheria Toxoids; Translations: [TETANUS AND DIPHTHERIA TOXOIDS]Propensity to adverse reactions to tlox20-75-6920Kkioqll [facility] (20 sources)AmoxicillinDrug Tcqbsgf05-53-8776Kweucvq, Unknown ReactionTrumbull Regional Medical Center (20 sources)Codeine / guaiFENesinDrug AllergyRhode Island Homeopathic Hospital Dympol Other (20 sources)DoxycyclineDrug Okteqcq71-90-4036Tpsmcug, Unknown ReactionTrumbull Regional Medical Center (20 sources)levoFLOXacinDrug AllergyLongwood HospitalQuero RockKaleida Health Dympol Other (20 sources)Ondansetron; Translations: [Zofran]Drug Direopf87-75-4910ErgsjdgWnvBarberton Citizens Hospital Rep[facility] (20 sources)Tetanus-Diphtheria Toxoids TdDrug allergyLongwood HospitalQuero RockKaleida Health Dympol Other (20 sources)AllopurinolDrug Jeaapnk14-27-8723NmqnhgnErcBarberton Citizens Hospital Repository (1 source)amLODIPineDrug Evrblbi00-51-4995PgcTrihealth [facility] (1 source)DoxycyclineDrug AllergyTrihealth [facility]hes[facility] Repository (1 source)DULoxetineDrug Xsjisgy46-07-3058QbzTrihealth [facility] Rep[facility] (1 source)Iodine (And Iodine Containting Drugs)Drug allergy (disorder)01-19-2021 [facility] Repository (1 source)Sulfamethoxazole / TrimethoprimDrug Ubrqysn90-70-6877NsxTrihealth [facility] Repository (9 sources)Sulfonamides (Antibiotic); Translations: [SULFA (SULFONAMIDE ANTIBIOTICS)]Allergy to -89-6034FoeuAccess [facility] (18 sources)SulfamethoxazoleDrug Eedhcpf04-23-1258Iuchjkv [facility] (8 sources)Trimethoprim; Translations: [TRIMETHOPRIM]Drug Yhhtlbx15-17-1085 [facility] (20 sources)Pseudoephedrine; Translations: [PSEUDOEPHEDRINE]Drug Allergy 02-60-2526OxkbhosHokyj Coast Dympol Other (20 sources)TetracyclineDrug AllergyRhode Island Homeopathic Hospital Dympol Other (20 sources)Cheratussin AC *COUGH/COLD/ALLERGY*Propensity to adverse reactions 22-74-4298FglkkeoCdfbm Coast Dympol Other (20 sources)Zofran *ANTIEMETICS*Propensity to adverse yfblvnucl77-93-1237Fxnwsdd [place] [facility] Other (5 sources)amLODIPineDrug AllergyRhode Island Homeopathic Hospital Dympol Other (20 sources)Azithromycin; Translations: [AZITHROMYCIN]Drug Wfwgxox21-36-5036 rash, SwellingTrumbull Regional Medical Center (20 sources)CodeineDrug Zwyrrfz90-82-2856Dsekeot [facility] (17 sources)guaiFENesinDrug Ebuzeeo55-10-5062KgdxduhHolzer Health System (17 sources)12 Hour DecongestantAllergy to qrzmlsept24-13-4033Uslplnh [facility] CenterComment on above:Onset Date: 10/29/2019 (17 sources)Cheratussin AC *COUGH/COLD/ALLAllergy to ntbewvuhy76-94-0395Sjxflsk [facility] County HospitalComment on above:Free Text Allergy: Cheratussin AC *COUGH/COLD/ALLERGY*; Onset Date: 10/29/2019 (8 sources)PenicillinsDrug Rthoqxckoas39-90-0301EKUQ Healthcare (4 sources)PenicillinsPropensity to adverse reactions to zvlx53-13-3043TouydagPremier Health [facility] (4 sources)TetracyclinesPropensity to adverse reactions to ltje27-96-2490MrynrhxPremier Health [facility] (1 source)Allopurinol; Translations: [ALLOPURINOL]Drug Ftxofeg01-44-6033 [facility] Repository Medications Current Medications MedicationDrug Class(es)DatesSig (Normalized)Sig (Original)AeroChamber Mini Chamber - (5 sources)Start: 06-58-8261OytxVkbcvge Mini Chamber - Use with MDI every 6 hours as needed inhaled every 6 hours as needed for30 days Mar, Active ALPRAZolam 0.25 mg oral tablet (20 sources)BenzodiazepineStart: 78-72-2022xltf 1 tablet by mouth three times daily as needed for anxietyAlprazolam 0.25 mg tablet Active 0.25 MG PO Three times daily as needed for anxiety 270 90 August 21, 2025 12:32pm Chronic kidney disease Chronic kidney disease, stage 3b Complies with drug therapyStart: 09-11-2024 End: 23-17-9031tnzo 1 tablet by mouth twice daily as needed for anxiety Alprazolam 0.25 mg tablet Discontinued 0.25 MG PO Twice daily as needed for anxiety February 12, 2025 12:00am August 21, 2025 12:35pmStart: 01-31-2024 End: 64-66-5556blyi 1 tablet by mouth every eight hours as needed for anxiety Alprazolam 0.25 mg tablet Discontinued 0.25 MG PO .q8hrs as needed for Anxiety January 31, 2024 10:33am September 11, 2024 3:20pmStart: 12-54-6104matf 1 tablet by mouth every eight hours as needed for anxietyALPRAZolam 0.25 MG TAKE 1 TABLET BY MOUTH EVERY 8 HOURS NEEDED FOR ANXIETY for 90 February, Active Start: 03-08-2023 End: 48-01-2034epjv 1 tablet by mouth three times daily [...] 250 mg oral tablet (10 sources)Macrolide AntimicrobialStart: 86-06-2694Vcercgujqktg 250 MG as directed Orally daily for 5 days Aug, ActiveStart: 04-26-2023 Azithromycin 250 MG as directed Orally daily for 5 days Mar, Zfeowq184 actuat budesonide 0.16 mg/actuat / formoterol fumarate 0.0045 mg/actuat metered dose inhaler (20 sources)Corticosteroid, beta2-Adrenergic AgonistStart: 07-96-8194baxa 1 puff(s) by inhalation twice dailyBudesonide-Formoterol (Symbicort) 160-4.5 mcg/actuation HFA aerosol inhaler Active 2 PUFF INHALATION Twice daily August 21, 2025 12:00am Complies with drug therapyStart: 53-57-1495iuxk 2 puff(s) by inhalation every twelve hoursSymbicort 160-4.5 mcg/actuation inhaler Inhale 2 puffs every 12 hours. 12/31/2024 ActiveStart: 12-29-2024 End: 72-58-9354blck 1 puff(s) by inhalation every twelve hoursBudesonide- Formoterol 160-4.5 mcg/actuation HFA aerosol inhaler Discontinued 2 PUFF INHALATION Every 12 hours 30.6 90 0 December 31, 2024 10:25am February 12, 2025 7:93oy747 actuat budesonide 0.16 mg/actuat / formoterol fumarate 0.0048 mg/actuat / glycopyrrolate 0.009 mg/actuat metered dose inhaler (1 source)Corticosteroid, beta2-Adrenergic AgonistStart: 18-17-2577zpwp 2 puff(s) by inhalation twice dailyBreztri Aerosphere 160-9-4.8 MCG/ACT 2 puffs Inhalation Twice a day Sample Apr, Activeclopidogrel 75 mg oral tablet (20 sources)P2Y12 Platelet InhibitorStart: 34-29-3710awun 1 tablet by mouth once dailyClopidogrel 75 mg tablet Active 0 .ROUTE .COMPLEX 90 3 July 07, 2025 7:34am TAKE 1 TABLET BY MOUTH DAILY Complies with drug therapyStart: 05-09-2023 End: 60-35-5818slhc 1 tablet by mouth once dailyClopidogrel 75 mg tablet Discontinued 75 MG PO Daily May 17, 2023 12:00am June 16, 2024 11:42am Start: 05-09-2023 End: 27-78-0572bzjukrnejud (PLAVIX) 75 mg tablet TAKE 8 TABLETS BY MOUTH ON DAY ONE THEN TAKE 1 TABLET BY MOUTH DAILY 05/09/2023 ActiveComment on above:TAKE 8 TABLETS BY MOUTH ON DAY ONE THEN TAKE 1 TABLET BY MOUTH DAILYcodeine phosphate 2 mg/ml / guaiFENesin 20 mg/ml oral solution (6 sources)Opioid AgonistStart: 49-26-9992cngy 10 mL by mouth four times daily as needed for coughguaiFENesin-Codeine 100-10 MG/5ML 10 mL as needed Orally qid as needed for cough for 7 days Activeenteric contrast (will be provided with radiology test) (1 source)Start: 05-29-2022 End: 15-15-6354gtvbywt contrast (will be provided with radiology test) [...] enteric contrast guidelinesFluticasone-Salmeterol 115-21 MCG/ACT (16 sources)Start: 45-73-3149gazt 2 puff(s) by inhalation twice daily Fluticasone-Salmeterol 115-21 MCG/ACT 2 puffs Inhalation Twice a day Apr, ActiveStart: 65-05-7325oqwr 2 puff(s) by inhalation twice dailyFluticasone- Salmeterol 115-21 MCG/ACT 2 puffs Inhalation Twice a day for 30 days Apr, Activefurosemide 40 mg oral tablet (20 sources)Loop DiureticStart: 74-87-2390qsmd 2 tablets by mouth twice daily Start: 08-11-2025 End: 28-92-8880lvjl 1 tablet by mouth twice dailyFurosemide 40 mg tablet Discontinued 40 MG PO Twice daily 60 0 August 11, 2025 12:00am August 21, 2025 11:51amStart: 10-06-2024 End: 51-57-2685Rphayrbwqe 20 mg tablet Discontinued 0 .ROUTE .COMPLEX 180 3 October 06, 2024 1:59pm December 19, 2024 5:28pm TAKE 1 TABLET BY MOUTH 1 TO 2 TIMES DAILY NEEDEDStart: 05-18-2023 End: 85-07-5096gtma 1 tablet by mouth twice dailyFurosemide 20 mg tablet Discontinued 20 MG PO Twice daily 180 3 December 23, 2024 2:16pm February 12, 2025 7:05amStart: 05-18-2023 End: 32-92-3321xzpo 1 tablet by mouth three times weeklyFurosemide 20 mg tablet Discontinued 20 MG PO every other day 30 0 May 18, 2023 11:38am 2023 2:00pm on even days 3 times a week. Goal weight is 195lbs, if you notice your weight trending up please take an extra dose as instructed by your PCP Start: 05-61-3642Kxmpflggxu 20 MG Oral Tablet one tablet M, W, F Quantity: 36 Refills: 3 Ordered: 21-Mar-2023 Edinson Perry DO Start : 21-Mar-2023 Active new doseStart: 03-08-2023 End: 07-88-7622Nfauxukcwu 20 mg tablet Discontinued 20 MG PO every other day March 08, 2023 12:00am May 18, 2023 11:39am on even days 3 times a weekStart: 03-08-2023 End: 23-47-1795obsz 1 tablet by mouth once dailyFurosemide 20 mg tablet Discontinued 20 MG PO Daily February 12, 2025 12:00am June 19, 2025 10:05am Furosemide 20 MG TAKE 1 TABLET BY MOUTH 1 TO 2 TIMES DAILY NEEDED for 90 Activegabapentin 100 mg oral capsule (20 sources)Anti-epileptic AgentStart: 08-15-2024 End: 08-57-8329ndyx 1 capsule by mouth twice dailyGabapentin 100 mg capsule Active 0 .ROUTE .COMPLEX 180 3 July 07, 2025 7:34am TAKE 1 CAPSULE BY MOUTH TWICE DAILY Complies with drug therapyStart: 03-08-2023 End: 04-82-5776vocr 1 capsule by mouth three times dailyGabapentin [...] with radiology test) (1 source)Start: 05-29-2022 End: 47-96-0199wz contrast (will be provided with radiology test) [...] 5 mg oral tablet (1 source)Thiazide-like DiureticStart: 13-28-7182oeze 1 tablet by mouth once daily as neededMetolazone 5 mg tablet Active 5 MG PO Daily as needed August 21, 2025 12:00am Complies with drugtherapyNIFEdipine 60 mg osmotic 24 hr extended release oral tablet (20 sources)Dihydropyridine Calcium Channel BlockerStart: 08-11-2025 End: 44-76-3606ckxh 1 tablet by mouth once dailyStart: 02-20-2024 End: 38-91-3646naqm 1 tablet by mouth once dailyNifedipine 30 mg tablet extended release 24hr Discontinued 30 MG PO Daily February 26, 2024 12:00am March 19, 2024 2:54pmStart: 43-73-3390afxq 1 tablet by mouth every twenty-four hours NIFEdipine ER (PROCARDIA XL) 30 mg 24 hr tablet Take 30 mg by mouth. 02/20/2024 Activenitrofurantoin, macrocrystals 25 mg / nitrofurantoin, monohydrate 75 mg oral capsule (11 sources)Nitrofuran AntibacterialStart: 71-60-2539crsg 1 capsule by mouth every twelve hoursNitrofurantoin Monohyd Macro 100 MG 1 capsule with food Orally every 12 hrs for 5 days Jun,ctivepantoprazole 40 mg delayed release oral tablet (20 sources)Proton Pump InhibitorStart: 76-78-6122qklt 1 tablet by mouth once daily at breakfastPantoprazole 40 mg tablet,delayed release (DR/EC) Active 0 .ROUTE .COMPLEX 90 November 18, 2024 8:28am TAKE 1 TABLET BY MOUTH DAILY ON AN EMPTY STOMACH FOLLOWED IN 1/2 HOUR BY BREAKFAST Complies with drug therapy Start: 07-05-2021 End: 51-57-4416zcbl 1 tablet by mouth once daily in the morningPantoprazole 40 mg tablet,delayed release (DR/EC) Discontinued 40 MG PO Every morning March 08, 2023 12:00am November 18, 2024 8:28amPantoprazole Sodium 40 MG Oral Packet Take 1 tablet by mouth on a empty stomach Quantity: 0 Refills: 0 Ordered: 07-Mar-2023 DO ActivePantoprazole Sodium Not-Takingrosuvastatin calcium 40 mg oral tablet (20 sources)HMG-CoA Reductase InhibitorStart: 83-79-6872emoa 1 tablet by mouth once dailyRosuvastatin 40 mg tablet Active 0 .ROUTE .COMPLEX 90 November 18, 2024 8:24am TAKE 1 TABLET BY MOUTH DAILY Complies with drug therapyStart: 63-46-2419vgxg 1 tablet by mouth once dailyRosuvastatin 40 mg tablet Active 0 .ROUTE .COMPLEX 90 November 18, 2024 8:24am TAKE 1 TABLET BY MOUTH DAILYStart: 02-02-2024 End: 26-57-7290judb 1 tablet by mouth once dailyRosuvastatin 40 mg tablet Discontinued 40 MG PO Daily 30 30 0 February 06, 2024 12:11pm November 18, 2024 8:24amtriamcinolone acetonide 5 mg/ml topical cream (20 sources)CorticosteroidStart: 81-32-3161xnuvlnivrgqfa (Kenalog) 0.5 % cream 01/31/2024 ActiveStart: 22-27-3422jqvwmxtxonble (Kenalog) 0.5 % cream Twice daily 01/31/2024 ActiveStart: 01-31-2024 End: 14-75-0470Egjtyjggappzo Acetonide 0.5 % cream Discontinued 1 APPLIC TOPICAL Twice daily January 31, 2024 12:00am February 12, 2025 6:39amStart: 01-31-2024 End: 42-08-9321Ahatkmfsdcbid Acetonide 0.1 % paste Discontinued 1 APPLIC DENTAL January 31, 2024 12:00am February 12, 2025 6:39am 1 application do not rinse afterwards and avoid eating or drinking for 30 minutes Mouth/Throat Twice a day Start: 05-24-2485Xrkmavjtgygff Acetonide 0.1 % 1 application do not rinse afterwards and avoid eating or drinking for 30 minutes Mouth/Throat Twice a day for 7 days Jul, ActiveStart: 97-73-1118Hbvalctgyuroo Acetonide 0.5 % 1 application Externally Two times a day for 14 days Mar, ActiveStart: 21-42-2711Qcrnsigqxofep Acetonide 0.5 % 1 application Externally Two times a day for 14 days Mar, ActiveUmeclidinium-Vilanterol (20 sources)Anticholinergic, beta2-Adrenergic AgonistStart: 05-19-2025 Umeclidinium-Vilanterol (Anoro Ellipta) 62.5-25 mcg/actuation blister with device Active 1 INH INHALATION Daily 180 90 3 May 19, 2025 3:59pm Complies with drug therapyStart: 04-46-4252Mhupk: 94-72-0629Bfxde: 05-19-2025 Umeclidinium-Vilanterol (Anoro Ellipta) 62.5-25 mcg/actuation blister with device Active 1 INH INHALATION Daily 180 90 May 19, 2025 3:59pm Complies with drug therapyStart: 05-15-2025 End: 34-05-4254Darpsxharuwc-Vilanterol (Anoro Ellipta) 62.5-25 mcg/actuation blister with device Discontinued 1 INH INHALATION Daily 180 90 3 May 15, 2025 11:55am May 19, 2025 4:04pmStart: 05-15-2025 End: 39-02-2019Pnbmezvggecl-Vilanterol (Anoro Ellipta) 62.5-25 mcg/actuation blister with device Discontinued 1 INH INHALATION Daily 180 90 May 15, 2025 11:55am May 19, 2025 4:04pmStart: 03-19-2025 End: 73-92-7500Pyhwxblkdyqh-Vilanterol (Anoro Ellipta) 62.5-25 mcg/actuation blister with device Discontinued 1 INH INHALATION Daily 180 90 3 March 19, 2025 11:38am May 15, 2025 11:55amStart: 03-19-2025 End: 32-22-7812Jgfcfyyfdhkj-Vilanterol (Anoro Ellipta) 62.5-25 mcg/actuation blister with device Discontinued 1 INH INHALATION Daily 180 90 March 19, 2025 11:38am May 15, 2025 11:55amStart: 03-19-2025 End: 11-12-1246Yhahnqimyray-Vilanterol (Anoro Ellipta) 62.5-25 mcg/actuation blister with device Discontinued 1 INH INHALATION Daily 60 30 0 March 19, 2025 11:37am March 19, 2025 11:46amStart: 03-13-2025 End: 07-38-3649Jhfblsxemrex-Vilanterol (Anoro Ellipta) 62.5-25 mcg/actuation blister with device Discontinued 1 INH INHALATION Daily 60 30 5 March 13, 2025 9:43am March 13, 2025 1:43pmStart: 57-64-2353Oeigm Ellipta 62.5-25 MCG/ACT aerosol powder USE 1 INHALATION BY MOUTH DAILY 02/12/2025 ActiveStart: 02-12-2025 End: 56-54-1036Rltocurblgts-Vilanterol (Anoro Ellipta) 62.5-25 mcg/actuation blister with device Discontinued 1 INH INHALATION Daily 60 30 0 February 12, 2025 12:00am March 13, 2025 1:20pmStart: 02-12-2025 End: 57-28-3724Ahzyqmvlhgpw-Vilanterol (Anoro Ellipta) 62.5-25 mcg/actuation blister with device Discontinued 1 INH INHALATION Daily 60 30 February 12, 2025 12:00am March 13, 2025 1:20pmUmeclidinium-Vilanterol (Anoro Ellipta) 62.5-25 mcg/actuation blister with device (1 source)Start: 04-03-1633Djyvdjqvreio-Vilanterol (Anoro Ellipta) 62.5-25 mcg/actuation blister with device Active 1 INH INHALATION Daily 180 90 March 19, 2025 11:38amvalsartan 80 mg oral tablet (20 sources)Angiotensin 2 Receptor BlockerStart: 10-08-2024 End: 04-79-6283uymv 1 tablet by mouth once dailyValsartan 80 mg tablet Active 80 MG PO Daily 90 90 3 June 19, 2025 3:16pm Complies with drug therapy{20 (nirmatrelvir 150 MG Oral Tablet) / 10 (ritonavir 100 MG Oral Tablet) } Pack [Paxlovid 5-Day] (9 sources)Start: 46-72-9187oakh 3 tablets by mouth every twelve hoursPaxlovid (300/100) 20 x 150 MG & 10 x 100MG 3 tablets Orally Twice a day for 5 days Jun, Active Completed/Discontinued Medications MedicationDrug Class(es)DatesSig (Normalized)Sig (Original)[id number] 200 actuat albuterol 0.09 mg/actuat metered dose inhaler (20 sources)beta2-Adrenergic AgonistStart: 31-87-5673ppypsmndu HFA 90 mcg/act inhaler 01/31/2024 ActiveStart: 03-09-6903zlzjsmxyt HFA 90 mcg/act inhaler Every 6 hours 01/31/2024 ActiveStart: 01-31-2024 End: 06-26-4596omuw 1 puff(s) by inhalation every six hours as needed for wheezingAlbuterol Sulfate 90 mcg/actuation HFA aerosol inhaler Discontinued 2 PUFF INHALATION Every 6 hoursas needed for shortness of breath or wheezing 8.5 5 November 26, 2024 10:19am August 21, 2025 11:51amStart: 09-60-9486zvua 2 puff(s) by inhalation every six hours as needed for coughAlbuterol Sulfate HFA 108 (90 Base) MCG/ACT 2 puff Inhalation every 6 hours as needed for cough, SOB Mar, ActiveStart: 91-31-8809sboz 2 puff(s) by inhalation every six hours as needed for coughAlbuterol Sulfate HFA 108 (90 Base) MCG/ACT 2 puff Inhalation every 6 hours as needed for cough, SOB Mar, ActiveStart: 82-21-9943ubkr 2 puff(s) by inhalation every six hours as needed for coughAlbuterol Sulfate HFA 108 (90 Base) MCG/ACT 2 puff Inhalation every 6 hours as needed for cough, SOB Mar, ActiveStart: 38-48-0149bjrl 2 puff(s) by inhalation every four hours as needed for coughAlbuterol Sulfate HFA 108 (90 Base) MCG/ACT 2 puffs as needed Inhalation every 4 hrs for As needed for cough or wheeze February, Not-Takingascorbic acid 500 mg oral tablet (19 sources)Vitamin CStart: 03-08-2023 End: 51-58-5813poeg 1 tablet by mouth once dailyAscorbic Acid (Vitamin C) (Vitamin C) 500 mg Tablet Discontinued 500 MG PO Daily March 08, 2023 12:00am May 17, 2023 10:50amaspirin 81 mg oral tablet (20 sources)Platelet Aggregation Inhibitor, Nonsteroidal Anti-inflammatory Drug Start: 04-18-2023 End: 72-83-8314ykcx 1 capsule by mouth once dailyAspirin 81 mg capsule Discontinued 81 MG PO Daily February 12, 2025 12:00am March 19, 2025 11:46am Start: 03-07-2023 End: 42-61-0292zyre 1 tablet by mouth once daily in the morningAspirin 81 mg tablet,delayed release (DR/EC) Discontinued 81 MG PO Every morning February 27, 2024 10:00am December 16, 2024 11:47am blood thinner every Mon, Wed, and FriComment on above:Take by mouth.benazepril (20 sources)Angiotensin Converting Enzyme InhibitorBenazepril HCl Not-Taking benzonatate 100 mg oral capsule (20 sources)Non-narcotic AntitussiveStart: 07-81-4763mkzx 1 capsule by mouth every eight hoursBenzonatate 100 MG 1 capsule as needed Orally Three times a day for As needed for cough or wheeze February, Not-Takingbumetanide 1 mg oral tablet (13 sources)Loop DiureticStart: 07-06-2025 End: 45-59-4393fqyd 1 tablet by mouth twice dailyBumetanide 1 mg tablet Discontinued 1 MG PO Twice daily 60 30 2 July 06, 2025 6:16pm July 292024 8:00pmStart: 06-19-2025 End: 72-74-5791kgha 1 tablet by mouth twice dailyBumetanide 0.5 mg tablet Discontinued 0.5 MG PO Twice daily 60 30 0 July 03, 2025 12:14pm July 06, 2025 6:18pmbusPIRone (20 sources)busPIRone HCl Not-TakingCalcium Carbonate (9 sources) End: 68-08-5045jtfghov carbonate (CALCIUM 600 ORAL) Take by mouth. 07/08/2025 Discontinued (Discontinued by another Health Care Provider)calcium carbonate (CALCIUM 600 ORAL) Take by mouth. Activecalcium carbonate (CALCIUM 600 ORAL) Take by mouth. 0 ActiveComment on above:Take by mouth.calcium carbonate 1500 mg / cholecalciferol 0.01 mg oral tablet (19 sources)Vitamin DStart: 03-08-2023 End: 10-13-3737ohpo 1 tablet by mouth once dailyCalcium Carbonate-Vitamin D3 (Calcium 600 + D(3)) 600 mg-10 mcg (400 unit) Tablet Discontinued 1 TAB PO Daily March 08, 2023 12:00am May 17, 2023 10:50amcarvedilol 3.125 mg oral tablet (20 sources)alpha-Adrenergic Humaira, beta-Adrenergic BlockerStart: 04-20-2024 End: 84-27-9666otkhouumta (Coreg) 3.125 MG tablet 04/20/2024 11/25/2024 Discontinued (Therapy completed)Start: 02-11-2024 End: 30-89-9118nkel 1 tablet by mouth twice daily at mealtimeCarvedilol 3.125 mg tablet Discontinued 0 .ROUTE .COMPLEX 180 3 February 11, 2024 7:04am February 26, 2024 10:53am TAKE 1 TABLET BY MOUTH TWICE DAILY WITH FOODStart: 05-18-2023 End: 57-57-8411Wexzlzncdl 3.125 mg tablet Discontinued 12.5 MG PO Twice daily 30 May 18, 2023 11:38am May 18, 2023 2:48pm Please do not take if you are feeling lightheaded or have a blood pressure less [id number] systolic at homeStart: 05-18-2023 End: 83-21-8800Odfnolbtum Discontinued 12.5 MG PO Twice daily May 18, 2023 11:38am May 18, 2023 2:48pm Please do not take if you are feeling lightheaded or have a blood pressure less than 120 systolic at homeStart: 05-18-2023 End: 00-41-2742syzw 1 tablet by mouth twice daily at mealtimeCarvedilol (Coreg) 12.5 mg tablet Discontinued 12.5 MG PO Twice daily 60 0 May 18, 2023 12:00am January 31, 2024 10:34am must administer with a meal/foodStart: 02-14-2023 End: 89-60-7180xkrf 1 tablet by mouth twice dailyCarvedilol 3.125 mg tablet Discontinued 3.125 MG PO Twice daily January 31, 2024 12:00am January 7:04amComment on above:TAKE 1 TABLET BY MOUTH TWICE A DAY WITH FOOD/MEALcefdinir 300 mg oral capsule (20 sources)Cephalosporin AntibacterialStart: 05-19-2025 End: 13-19-4981twfo 1 capsule by mouth twice dailyCefdinir 300 mg capsule Discontinued 300 MG PO Twice daily 10 5 0 May 19, 2025 12:00am June 19, 2025 9:32amStart: 02-13-2024 End: 85-17-2673kkbb 1 capsule by mouth twice dailyCefdinir 300 mg capsule Discontinued 300 MG PO Twice daily 14 7 0 February 13, 2024 12:00am February 26, 2024 10:49am Right otitis media Dysfunction of eustachian tube Otitis media, unspecified, right ear Unspecified Eustachian tube disorder, unspecified ear Fluticasone Propion-Salmeterol (20 sources)Corticosteroid, beta2-Adrenergic AgonistStart: 11-26-2024 End: 71-63-8005lnqh 1 puff(s) by inhalation every twelve hoursFluticasone Propion-Salmeterol (Advair Hfa) 115-21 mcg/actuation HFA aerosol inhaler Discontinued 2PUFF INHALATION Every 12 hours 10 27 11November 26, 2024 10:19am February 12, 2025 6:38am On Hold:NoneStart: 11-26-2024 End: 17-38-0879cowp 1 puff(s) by inhalation every twelve hoursFluticasone Propion-Salmeterol (Advair Hfa) 115-21 mcg/actuation HFA aerosol inhaler Discontinued 2PUFF INHALATION Every 12 hours 10 27November 26, 2024 10:19am February 12, 2025 6:38am On Hold: NoneStart: 77-86-9294kqtu 1 puff(s) by inhalation every twelve hoursFluticasone Propion-Salmeterol (Advair Hfa) 115-21 mcg/actuation HFA aerosol inhaler Active 2 PUFF INHALATION Every 12 hours 10 27November 26, 2024 10:19am On Hold: NoneStart: 15-32-5874ttig 1 puff(s) by inhalation every twelve hoursFluticasone Propion-Salmeterol (Advair Hfa) 115-21 mcg/actuation HFA aerosol inhaler Active 2 PUFF INHALATION Every 12 hours 10 27November 26, 2024 9:19am On Hold: NoneStart: 05-17-2023 End: 89-52-3467yiww 1 puff(s) by inhalation twice dailyFluticasone Propion- Salmeterol (Advair Hfa) 115-21 mcg/actuation HFA aerosol inhaler Discontinued 2 PUFF INHALATION Twice daily May 17, 2023 12:00am November 26, 2024 10:19am Start: 05-17-2023 End: 33-48-9862akie 1 puff(s) by inhalation twice dailyFluticasone Propion- Salmeterol (Advair Hfa) 115-21 mcg/actuation HFA aerosol inhaler Discontinued 2 PUFF INHALATION Twice daily May 16, 2023 11:00pm November 26, 2024 9:19am Start: 21-82-1457hrle 1 puff(s) by inhalation twice dailyFluticasone Propion- Salmeterol (Advair Hfa) 115-21 mcg/actuation HFA aerosol inhaler Active 2 PUFF I NHALATION Twice daily May 16, 2023 11:00pmStart: 41-65-2358drlr 1 puff(s) by inhalation twice dailyFluticasone Propion-Salmeterol (Advair Hfa) 115-21 mcg/actuation HFA aerosol inhaler Active 2 PUFF INHALATION Twice daily May 17, 2023 12:00amStart: 55-16-3478kkws 2 puff(s) by inhalation twice daily Fluticasone-Salmeterol 115-21 MCG/ACT 2 puffs Inhalation Twice a day Apr, Active End: 98-85-3872znhm 2 puff(s) by inhalation in the morningfluticasone-salmeterol (Advair) 45-21 MCG/ACT inhaler Inhale 2 puffs in the morning and 2 puffs before bedtime. Rinse mouth with water after use to reduce aftertaste and incidence of candidiasis. Do not swallow. 02/25/2025 Discontinued (Therapy completed) irbesartan 150 mg oral tablet (20 sources)Angiotensin 2 Receptor BlockerStart: 11-28-2022 End: 86-69-7337rxjt 1 tablet by mouth once daily in the morningIrbesartan 150 mg tablet Discontinued 150 MG PO Every morning March 08, 2023 12:00am February 27, 2024 10:37amtake 1 tablet by mouth twice dailyIrbesartan 150 MG 1 tablet Orally twice daily Activelevothyroxine sodium 0.075 mg oral tablet (18 sources)l-ThyroxineStart: 02-19-2024 End: 07-02-3442vdce 1 tablet by mouth once dailyLevothyroxine 75 mcg tablet Discontinued 75 MCG PO Daily February 26, 2024 12:00am September 15, 2024 10:40amlosartan potassium 50 mg oral tablet (20 sources)Angiotensin 2 Receptor BlockerStart: 01-31-2024 End: 88-99-5346gomz 1 tablet by mouth twice dailyLosartan 50 mg tablet Discontinued 50 MG PO Twice daily January 31, 2024 12:00am February 26, 2024 10: 53amStart: 68-23-0082vxey 1 tablet by mouth twice dailyLosartan Potassium 50 MG 1 tablet Orally twice daily May, Active End: 44-92-4855kger 1 tablet by mouth once dailylosartan (COZAAR) 100 mg tablet Take 100 mg by mouth once daily. 07/08/2025 Discontinued (Discontinued by another Health Care Provider)take 1 tablet by mouth once dailyLosartan Potassium 50 MG 1 tablet Orally Once a day for 90 days ActiveComment on above:Take 100 mg by mouth once daily.MULTI-VITAMIN ORAL (9 sources) End: 25-47-0282MQQAE-VITAMIN ORAL Take by mouth. 07/08/2025 Discontinued (Discontinued by another Health Care Provider)MULTI-VITAMIN ORAL Take by mouth. ActiveMULTI-VITAMIN ORAL Take by mouth. 0 ActiveComment on above:Take by mouth. Multivitamin preparation (7 sources)Start: 03-08-2023 End: 05-48-0745dgky 1 tablet by mouth once dailyMultivitamin Discontinued 1 TAB PO Daily March 08, 2023 12:00am May 17, 2023 10:50amStart: 71-30-7391zmdx 1 tablet by mouth once dailyMultivitamin Active 1 TAB PO Daily March 08, 2023 12:00amMultivitamin Tablet (12 sources)Start: 03-08-2023 End: 99-02-9431mgpv 1 tablet by mouth once dailyMultivitamin Tablet Discontinued 1 TAB PO Daily March 08, 2023 12:00am May 17, 2023 10:50amStart: 03-08-2023 End: 20-25-1412hkrv 1 tablet by mouth once dailyMultivitamin Tablet Discontinued 1 TAB PO Daily March 07, 2023 11:00pm May 17, 2023 9:50am24 hr nitroglycerin 0.2 mg/hr transdermal system (20 sources)Nitrate VasodilatorStart: 03-08-2023 End: 62-99-5688pwhav 0.2 mg transdermal route every hourNitroglycerin 0.2 mg/hr patch 24 hour Discontinued 0.2 MG TRANSDERML Daily March 08, 2023 12:00am May 17, 2023 10:50amStart: 03-08-2023 End: 81-02-9584Sdkewviibeqex Discontinued 0.2 MG TRANSDERML Daily March 08, 2023 12:00am May 17, 2023 10:50amStart: 30-47-6323syznx 1 dose transdermal route once daily, then apply 1 dose transdermal route every twenty-four hours Nitroglycerin 0.2 MG/HR Transdermal Patch 24 Hour APPLY PATCH FOR 12 TO 14 HOURS DAILY, THEN REMOVEQuantity: 90 Refills: 3 Ordered: 07-Mar-2023 Edinson Perry DO Start : 07-Mar-2023 Active new startnystatin 792356 unt/ml oral suspension (6 sources)Polyene AntifungalStart: 02-16-2025 End: 76-25-2534uiih 1 mL by mouth four times dailyNystatin 100,000 unit/mL suspension Discontinued 5 ML PO Four times daily 140 7 0 February 16, 2025 1 2:00am March 19, 2025 11:47am swish for 30 seconds and swallowNystatin 100,000 unit/mL suspension (1 source)Start: 02-16-2025 End: 72-37-5221kcue 1 mL by mouth four times dailyNystatin 100,000 unit/mL suspension Discontinued 5 ML PO Four times daily 140 7 February 16, 2025 12:00am March 19, 2025 11:47am swish for 30 seconds and swallowpotassium chloride 10 meq extended release oral tablet (20 sources)Start: 84-65-0545xxfb 1 tablet by mouth twice dailypotassium chloride (K-TAB) 10 mEq tablet Take 10 mEq by mouth two times a day. 04/26/2023 ActiveStart: 03-08-2023 End: 82-04-2690Vvfozisch Chloride 10 mEq tablet extended release Discontinued 10 MEQ PO EVERY 3 WEEKS March 08, 2023 12:00am April 22, 2024 1:22pm 3 times a week on even daysStart: 03-08-2023 End: 92-00-6061gnqo 1 tablet by mouth once dailyPotassium Chloride [...] tablet (20 sources)HMG-CoA Reductase InhibitorStart: 03-08-2023 End: 84-77-2582wses 1 tablet by mouth once daily in the eveningPravastatin 40 mg tablet Discontinued 40 MG PO Every evening March 08, 2023 12:00am February 012:10pmComment on above:Take 40 mg by mouth every evening.predniSONE 20 mg oral tablet (20 sources)Start: 43-17-1351iupl 1 tablet by mouth every twelve hourspredniSONE 20 MG 1 tablet with food or milk Orally Twice a day for 3 day(s) February, Not-Takingpsyllium 400 mg oral capsule (6 sources)Start: 03-08-2023 End: 48-67-0757Oyvlmzlb Husk (Metamucil) 0.4 gram Capsule Discontinued 0.4 GM PO Daily as needed for Constipation March 08, 2023 12:00am May 17, 2023 10:50am Psyllium Husk (Metamucil) 0.4 gram Capsule (13 sources)Start: 03-08-2023 End: 48-31-6809Wvplpsio Husk (Metamucil) 0.4 gram Capsule Discontinued 0.4 GM PO Daily as needed for Constipation March 08, 2023 12:00am May 17, 2023 10:50am Start: 03-08-2023 End: 02-66-4019Bcjfjlor Husk (Metamucil) 0.4 gram Capsule Discontinued 0.4 GM PO Daily as needed for Constipation March 07, 2023 11:00pm May 17, 2023 9:50am Start: 03-08-2023 End: 11-58-3479Timgbtij Husk (Metamucil) 0.4 gram Capsule Discontinued 0.4 GM PO Daily March 08, 2023 12:00am 2022 10:50amStart: 37-91-3347Prjifwpd Husk (Metamucil) 0.4 gram Capsule Active 0.4 GM PO Daily March 08, 2023 12:00am regadenoson (Lexiscan) injection 0.4 mg (1 source)Start: 03-12-2024 End: .4 mg, intravenous, Once, On Sun03/12/24 at 0915, For 1 dose rOPINIRole 0.25 mg oral tablet (20 sources)Nonergot Dopamine AgonistStart: 11-23-2022 End: 29-67-7501nyis 1 tablet by mouth once dailyRopinirole 0.25 mg tablet Discontinued 0.25 MG PO Daily 90 90 3 December 18, 2023 10:31am February 27, 2024 10:38amsacubitril 24 mg / valsartan 26 mg oral tablet (20 sources)Angiotensin 2 Receptor BlockerStart: 02-20-2024 End: 79-81-0106eaxi 1 tablet by mouth twice dailySacubitril-Valsartan (Entresto) 24-26 mg tablet Discontinued 1 TAB PO Twice daily February 26, 2024 12:00am March 19, 2024 2:54pmStart: 10-69-6987rfpc 1 tablet by mouth in the morningEntresto 24-26 MG tablet Take 1 tablet by mouth in the morning and 1 tablet in the evening. 02/20/2024 Activesulfamethoxazole 800 mg / trimethoprim 160 mg oral tablet (20 sources)Dihydrofolate Reductase Inhibitor Antibacterial, Sulfonamide AntimicrobialStart: 74-61-1935haum 1 tablet by mouth every twelve hoursBactrim [...] mg oral capsule (20 sources)BenzodiazepineStart: 12-21-2022 End: 77-33-4159nazi 1 capsule by mouth once daily at bedtimeTemazepam 15 mg capsule Discontinued 15 MG PO Daily at bedtime March 08, 2023 12:00am June 13, 2024 2:15pmTemazepam Not-TakingComment on above:Take by mouth at bedtime as needed.ticagrelor 90 mg oral tablet (20 sources)Start: 03-09-2023 End: 49-54-0794jcso 1 tablet by mouth twice dailyTicagrelor (Brilinta) 90 mg tablet Discontinued 90 MG PO Twice daily 180 3 March 09, 2023 12:00am May 17, 2023 2:07pm Problems Active Problems Problem ClassificationProblemDateDocumented DateEpisodic/ChronicAcute bronchitis (20 sources)Acute bronchitis; Translations: [Acute bronchitis, unspecified] Onset: 42-60-8776UxqvbqfxEdjqqbc disorders (20 sources)Generalized anxiety disorder; Translations: [Generalized anxiety disorder]Onset: 04-27-4694KccfqbxIijwnnp dysrhythmias (20 sources)Palpitations; Translations: [Bradycardia, unspecified]Onset: 17-39-3673JzpjgpcwPkmkqys kidney disease (20 sources)Chronic kidney disease; Translations: [Chronic kidney disease, unspecified]54-84-0177EtqbsbeOnpxnsz obstructive pulmonary disease and bronchiectasis (20 sources)Simple chronic bronchitis; Translations: [Simple chronic bronchitis] Onset: 96-26-6920OolfilkZbnnsugdis heart failure; nonhypertensive (20 sources)Acute on chronic diastolic heart failure; Translations: [Acute on chronic diastolic (congestive) heart failure]Onset: 38-57-0931MgomnvuBdkjgla on above:- LHC w/ PCI/stent LAD, RCA [...] III; Translations: [Other and unspecified angina pectoris]Onset: 13-60-7156GxmjknqJaodtgg on above:LHC w/ PCI/stent LAD, RCA (Feb, 2023)Problem List clean-up per request of Phys. EHR CmteDeficiency and other anemia (1 source)Anemia of chronic disease; Translations: [Anemia in other chronic diseases classified elsewhere]51-85-9184SscuauiFrgrxifsgi and other anemia (1 source)Anemia in other chronic diseases classified elsewhere; Translations: [Anemia in other chronic diseases classified elsewhere]Onset: 07-90-0923Vqhbcjl Deficiency and other anemia (20 sources)Anemia; Translations: [Anemia, unspecified]Onset: 11-24-2024 28-98-9513IrbhexyqWgsufrcrvz and other anemia (9 sources)Anemia, unspecified; Translations: [Anemia, unspecified]Onset: 51-58-3078ZkifuyjhYvjitwvx of mouth; excluding dental (20 sources)Stomatitis; Translations: [Other forms of stomatitis] Resolved: 51-67-0000YosfnxqhUyaxymiqd of lipid metabolism (20 sources)Pure hypercholesterolemia; Translations: [Familial hypercholesterolemia]Onset: 49-02-6575HbpgiukNbbdhya on above:Problem List clean-up per request of Phys. EHR CmteE Codes: Adverse effects of medical drugs (20 sources)Adverse reaction to drug; Translations: [Adverse effect of unspecified drugs, medicaments and biological substances, subsequent encounter] EpisodicEsophageal disorders (20 sources)Gastro-esophageal reflux disease with esophagitis; Translations: [Gastroesophageal reflux disease with esophagitis without hemorrhage]Onset: 714423-41-5092UxgfcevEbqelwhem hypertension (20 sources)Essential hypertension; Translations: [Essential (primary) hypertension]Onset: 37-61-6559UjtbpelFwmliff on above:Problem List clean-up per request of Phys. EHR CmteGenitourinary symptoms and ill-defined conditions (20 sources)Urinary tract infectious disease; Translations: [Unspecified symptoms and signs involving the genitourinary system]EpisodicHeadache; including migraine (20 sources)Episodic tension-type headache; Translations: [Episodic tension-type headache, not intractable]Onset: 23-28-3705CkpkwyjHrrbvazneknu with complications and secondary hypertension (20 sources)Hypertensive heart disease with heart failure; Translations: [Hypertensive emergency]Onset: 468881-79-5638VotkrnlAvyjjnj on above: Problem List clean-up per request of Phys. EHR CmteImmunizations and screening for infectious disease (20 sources)Other specified abnormal immunological findings in serum; Translations: [Abnormal blood test]Onset: 507071-43-2746Ouphlyyl Lymphadenitis (20 sources)Submandibular lymphadenopathy; Translations: [Localized enlarged lymph nodes]Onset: 62-89-1269BwpdpjpcKonjdwe and fatigue (20 sources)Malaise; Translations: [Other malaise] Resolved: 085964-91-7778YtemtowjAvmtubwymb disorders (20 sources)Atrophic vaginitis; Translations: [Postmenopausal atrophic vaginitis]Onset: 031168-18-9027DyolyhoXhefivafnjymw mental health disorders (20 sources)Primary insomnia; Translations: [Primary insomnia]ChronicNeoplasms of unspecified nature or uncertain behavior (20 sources)Monoclonal paraproteinemia; Translations: [Monoclonal gammopathy] ChronicOsteoarthritis (20 sources)Osteoarthritis; Translations: [Polyosteoarthritis, unspecified] Onset: 53-24-8325SjtakkuHrekc aftercare (1 source)skilled nursing (current) use of aspirin; Translations: [HUMAN FACTORS SPECIALIST CURRENT USE OF ASPIRIN]Onset: 53-90-1012AijozlwrUxbzm aftercare (1 source)Other long-term (current) drug therapy; Translations: [OTH [facility] CURRENT DRUG THERAPY]Onset: 13-15-9932BqufiobhFwhka and ill-defined heart disease (2 sources)Heart disease; Translations: [Heart disease, unspecified]06-06-2023 ChronicOther and ill-defined heart disease (1 source)Heart disease, unspecified; Translations: [Heart disease]Onset: 43-51-8879OnrrymrTpbve and unspecified benign neoplasm (20 sources)Lipoma of [...] lower limb; Translations: [Sleep related leg cramps] 74-23-0250EwpzkdeBzmuc connective tissue disease (2 sources)Sleep related leg cramps; Translations: [Sleep related leg cramps] 32-71-2887IfzfogtEnbhp connective tissue disease (20 sources)Radial styloid tenosynovitis; Translations: [Radial styloid tenosynovitis [de [place]]]04-71-7417TpjbkdgtTmpnl connective tissue disease (20 sources)Pain in right lower limb; Translations: [Pain in right leg]Episodic Other connective tissue disease (20 sources)Trochanteric bursitis of right hip; Translations: [Trochanteric bursitis, right hip]EpisodicOther connective tissue disease (1 source)Radial styloid tenosynovitis [de [place]]; Translations: [Radial styloid tenosynovitis [de [place]]]EpisodicOther diseases of veins and lymphatics (20 sources)Peripheral venous insufficiency; Translations: [Venous insufficiency (chronic) (peripheral)]Onset: 912384-19-3605JxznuvrxGulqu diseases of veins and lymphatics (20 sources)Venous insufficiency (chronic) (peripheral); Translations: [Venous (peripheral) insufficiency, unspecified]Onset: 68-07-1069VmdcmxznYwkai diseases of veins and lymphatics (20 sources)Stasis dermatitis; Translations: [Venous insufficiency (chronic) (peripheral)]EpisodicOther endocrine disorders (20 sources)Disorder of adrenal gland; Translations: [Disorder of adrenal gland, unspecified]ChronicOther endocrine disorders (20 sources)Other specified disorders of adrenal gland; Translations: [Nodule of adrenal cortex (disorder)]ChronicOther endocrine disorders (1 source)Disorder of adrenal gland, unspecifiedChronicOther endocrine disorders (20 sources)Adrenal mass; Translations: [Other specified disorders of adrenal gland]Onset: 040435-17-4559UcodcaqDhjzy eye disorders (20 sources)Ptosis of eyelid; Translations: [Unspecified ptosis of right eyelid] EpisodicOther female genital disorders (20 sources)Noninflammatory disorder of the vagina; Translations: [Other specified noninflammatory disorders ofvagina]EpisodicOther gastrointestinal disorders (20 sources)Irritable bowel syndrome with diarrhea; Translations: [Irritable bowel syndrome with diarrhea]02-46-5905VagdpnuCahdx hematologic conditions (5 sources)Protein electrophoresis abnormal; Translations: [Other specified abnormalities of plasma proteins]EpisodicOther hematologic conditions (2 sources)Other specified abnormalities of plasma proteins; Translations: [OTH SPEC ABNORM PLASMA PROTEINS]Onset: 00-80-8144QtktaqfuXjnex hereditary and degenerative nervous system conditions (20 sources)Restless legs; Translations: [Restless legs syndrome]01-31-2024 ChronicOther hereditary and degenerative nervous system conditions (5 sources)Restless legs syndrome; Translations: [Restless legs syndrome]Onset: 66-02-1304SobyreoWitmr injuries and conditions due to external causes [...] sources)Shortness of breath; Translations: [SHORTNESS OF BREATH]Onset: 70-24-7491SqskadicWwekr lower respiratory disease (20 sources)Acute cardiac pulmonary edema ; Translations: [Acute pulmonary edema]Onset: 540024-55-9458AzrzjrbbGelqzpa on above:Problem List clean-up per request of Phys. EHR CmteOther lower respiratory disease (18 sources)Hypoxia; Translations: [Hypoxemia]06-65-4179YbcthbfdPjpvktv on above:Problem List clean-up per request of Phys. EHR CmteOther lower respiratory disease (1 source)Acute pulmonary edema; Translations: [Acute edema of lung, unspecified]39-95-3689JdzobxeoHiqba lower respiratory disease (1 source)Hypoxemia; Translations: [Hypoxemia]51-58-2394WzorszblGgdtc nervous system disorders (20 sources)Neuropathy; Translations: [Polyneuropathy, [...] tenderness; Translations: [Other disturbances of skin sensation] 47-75-7312EdpdybwsTeqce non-traumatic joint disorders (20 sources)Arthralgia of the [...] knee; Translations: [Chronic pain of right knee] 17-72-0542CddkxvwsNsuom non-traumatic joint disorders (1 source)Hip pain; Translations: [Pain in right hip]33-22-1668VipraokwRbsyc nutritional; endocrine; and metabolic disorders (20 sources)Simple obesity ; Translations: [Exogenous obesity]45-49-3891Bygrykb Other nutritional; endocrine; and metabolic disorders (20 sources)Obese class I; Translations: [Obesity, unspecified]ChronicOther nutritional; endocrine; and metabolic disorders (2 sources)Obesity, unspecifiedChronicOther nutritional; endocrine; and metabolic disorders (20 sources)Obesity; Translations: [Obesity, unspecified]04-86-5869SuqhdkqWufkp nutritional; endocrine; and metabolic disorders (20 sources)Obesity caused by energy imbalance; Translations: [Other obesity due to excess calories]ChronicOther nutritional; endocrine; and metabolic disorders (20 sources)Body mass index 30+ - obesity; Translations: [Body mass index (BMI) 32.0-32.9, adult]Onset: 612270-25-4635IzqazrlPwzqn nutritional; endocrine; and metabolic disorders (4 sources)Other obesity due to excess caloriesChronicOther nutritional; endocrine; and metabolic disorders (5 sources)Body mass index (BMI) 32.0-32.9, adult; Translations: [Body mass index (BMI) 32.0-32.9, adult]Onset: 51-97-9066PqmyoqlZlugx nutritional; endocrine; and metabolic disorders (3 sources)Body mass index (BMI) 33.0-33.9, adult; Translations: [Body mass index (BMI) 33.0-33.9, adult]Onset: 44-89-8983DwrqtkuNeete screening for suspected conditions (not mental disorders or infectious disease) (20 sources)Encounter for screening mammogram for malignant neoplasm of breast; Translations: [Cardiovascular stress test abnormal]Onset: 44-89-5247Lxbvhgyh Comment on above:Problem List clean-up per request of Phys. EHR CmteOther skin disorders (1 source)Localized swelling, mass and lump, neckEpisodicOther skin disorders (4 sources)Hemosiderin pigmentation of skin; Translations: [Other specified disorders of pigmentation]89-54-4882NzqxhxxcLbztu upper respiratory disease (20 sources)Seasonal allergic rhinitis; Translations: [Other seasonal allergic rhinitis]Onset: 87-57-5567EbyauvgLoipm upper respiratory disease (20 sources)Allergic rhinitis; Translations: [Allergic rhinitis, unspecified] Onset: 23-66-9244MmtyptiVgsjj upper respiratory disease (20 sources)Vasomotor rhinitis; Translations: [Vasomotor rhinitis]Onset: 41-96-6452FvjiklrVlfbp upper respiratory infections (20 sources)Acute sinusitis; Translations: [Acute sinusitis, unspecified]Onset: 07-63-8387MroxkeigZhvkeq media and related conditions (20 sources)Otitis media; Translations: [Otitis media, unspecified, unspecified ear]88-02-6652ZbmcfwgdSadvfwpduz and visceral atherosclerosis (1 source)Atherosclerosis of upper [place] arteries of extremities with intermittent claudication, bilateral legs; Translations: [Atherosclerosis of [place] arteries of extremities with intermittent claudication, bilateral legs]Onset: 08-19-2025 ChronicPneumonia (except that caused by tuberculosis or sexually transmitted disease) (1 source)Pneumonia, unspecified organism; Translations: [PNEUMONIA UNSPECIFIED ORGANISM]Onset: 54-78-8440WkhjawkaWqkqvsrey heart disease (20 sources)Pulmonary hypertension; Translations: [Pulmonary hypertension, unspecified]ChronicResidual codes; unclassified (12 sources)Asymptomatic menopausal state; Translations: [Menopause]Episodic Residual codes; unclassified (20 sources)Menopause present; Translations: [Asymptomatic menopausal state] 73-38-8959XcsjszwcYhodnxar codes; unclassified (1 source)Family history of malignant neoplasm of bladder; Translations: [FAM HX MALIGNANT NEOPLASM BLADDER]Onset: 23-63-2378RkaypxemFvxgftgv codes; unclassified (1 source)Family history of malignant neoplasm of digestive organs; Translations: [FAM HX MALIG NEOPLASM DIGESTIV ORGN]Onset: 10-74-1550Gpnkeqqj Residual codes; unclassified (1 source)Family history of other malignant neoplasms of lymphoid, hematopoietic and related tissues; Translations: [FAM HX OTH MAL TANJA LYMPH HEMATPOETC]Onset: 22-42-6079SalnwllfQigbnkgd codes; unclassified (1 source)Family history of malignant neoplasm of trachea, bronchus and lung; Translations: [FAM HX MALIG NEOPLSM TRACH BRON LNG]Onset: 01-86-4272Zwqxanjr Residual codes; unclassified (20 sources)Postmenopausal state; Translations: [Asymptomatic menopausal state] EpisodicResidual codes; unclassified (19 sources)Symptom: generalized; Translations: [Other general symptoms and signs]EpisodicResidual codes; unclassified (1 source)Other general symptoms and signs; Translations: [Other general symptoms and signs]EpisodicResidual codes; unclassified (1 source)Edema; Translations: [Edema, unspecified]92-90-6244XevdwoasAiounhbg codes; unclassified (4 sources)Bilateral lower limb edema; Translations: [Localized edema]08-04-2025 EpisodicResidual codes; unclassified (1 source)Localized edema; Translations: [Localized edema]Onset: 08-19-2025 EpisodicRespiratory failure; insufficiency; arrest (adult) (2 sources)Requires continuous home oxygen supply; Translations: [Dependence on supplemental oxygen]93-21-1761EusqlcmWyxqpuwzotd failure; insufficiency; arrest (adult) (3 sources)Acute respiratory failure with hypoxia; Translations: [Acute hypoxemic respiratory failure]Onset: 913015-68-4424OqrxnblkQlzocwhxcsa failure; insufficiency; arrest (adult) (1 source)Respiratory failure; insufficiency; arrest (adult)Retinal detachments; defects; vascular occlusion; and retinopathy (8 sources)Epiretinal membrane of left eye; 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, left eye]Onset: 131204-95-6125NyypjirLnud and subcutaneous tissue infections (2 sources)Cellulitis of right fingerEpisodicSpondylosis; intervertebral disc disorders; other back problems (20 sources)Cervical spondylosis without myelopathy; Translations: [Other spondylosis with radiculopathy, cervical region]Onset: ChronicSprains and strains (20 sources)Neck sprain; Translations: [Strain of muscle, fascia and tendon at neck level, initial encounter]Onset: 04-05-2016 Resolved: 26-50-5583OyomtwdwIjxqvezqs-related disorders (20 sources)Tobacco user; Translations: [Nicotine dependence, cigarettes, in remission]ChronicThyroid disorders (20 sources)Goiter; Translations: [Iodine-deficiency related diffuse (endemic) goiter]18-96-1026SqxyarrGyqmmmh on above:US: right 16mm TR4, left 5-7mm TR - 08/2024US: right 16mm TR4, left 5-7mm TR4 - 08/2024FNA: right nodule 11/17/24US: right 16mm TR4, left 5-7mm TR4 - 08/2024,FNA: right nodule - 11/17/24,US: no change - 01/2025Unclassified (3 sources)CONTACT W/AND (SUSP) EXPOS COVID-19; Translations: [CONTACT W/AND (SUSP) EXPOS COVID-19]Onset: 43-22-7819Czhisqeb veins of lower extremity (5 sources)Varicose veins of lower extremity; Translations: [Varicose veins of bilateral lower extremities with other complications]Onset: 219912-57-6980 EpisodicViral infection (20 sources)COVID-19; Translations: [Disease caused by 2019-nCoV]Onset: 05-08-2022 Past or Other Problems Problem ClassificationProblemDateDocumented DateEpisodic/ChronicCoronary atherosclerosis and other heart disease (4 sources)Patient post percutaneous transluminal coronary angioplasty; Translations: [Percutaneous transluminal coronary angioplasty status]Onset: 822031-54-6840RojqvrvoDlwxfvjylr disorders (20 sources)Esophageal disorders; Translations: [Gastroesophageal reflux disease with esophagitis without hemorrhage]Headache; including migraine (20 sources)Headache; Translations: [Headache, unspecified]Onset: 10-19-2015 EpisodicInflammation; infection of eye (except that caused by tuberculosis or sexually transmitteddisease) (8 sources)Blepharitis of upper and lower eyelids of bilateral eyes; Translations: [Unspecified blepharitis right eye, upper and lower eyelids]Onset: 022384-63-0012SvxcjxndTzvaaza (20 sources)Candidiasis of mouth; Translations: [Candidal stomatitis]Onset: 37-70-0208HrtztqnzGxawpxiotksy breast conditions (20 sources)Pain of breast; Translations: [Mastodynia] Resolved: 39-98-8650GjfalzrzUzdqhqygiod chest pain (20 sources)Precordial pain; Translations: [Chest pain]Onset: 00-66-8263Cnkximjg Other connective tissue disease (20 sources)Shoulder lesion, unspecified, left shoulder; Translations: [Shoulder lesion, unspecified, left shoulder]Onset: 24-54-9562MftrrtbuAtvtz eye disorders (8 sources)Dry eyes; Translations: [Dry eye syndrome of bilateral lacrimal glands]Onset: 905478-71-3808RyaftxbnBedic lower respiratory disease (20 sources)Cough; Translations: [Cough, unspecified]Onset: 86-74-5028Dnrsdezh Other lower respiratory disease (10 sources)Dyspnea; Translations: [Shortness of breath]Onset: 10-17-2023 84-87-5206DhcegezhLmnuc nervous system disorders (19 sources)Tremor; Translations: [Tremor, unspecified]Onset: 48-64-5973Gcmqelhy Other nervous system disorders (19 sources)Atypical facial pain; Translations: [Atypical facial pain]Onset: 18-43-8194RplykfoqXcblg nervous system disorders (1 source)Tremor, unspecified; Translations: [Tremor, unspecified]Onset: 64-43-9228IwkxyhccDyrks nervous system disorders (1 source)Atypical facial pain; Translations: [Atypical facial pain]Onset: 44-38-3909OhlegxuvDffso non-traumatic joint disorders (19 sources)Shoulder joint pain; Translations: [Pain in left shoulder]Onset: 64-35-4887MqvzwfjcBbezc non-traumatic joint disorders (1 source)Pain in left shoulder; Translations: [Pain in left shoulder]Onset: 81-68-3343XhhmggdcLvxmtrtm codes; unclassified (20 sources)Insomnia; Translations: [Insomnia, unspecified]Onset: 06-23-2015 EpisodicScreening and history of mental health and substance abuse codes (20 sources)Ex-smoker; Translations: [Personal history of tobacco use]Onset: 34-68-678507960639-85-6573EmzhwgerAwkitbl on above:1998;Spondylosis; intervertebral disc disorders; other back problems (20 sources)Neck pain; Translations: [Cervicalgia]Onset: 80-17-6817Ppknbgbn Superficial injury; contusion (20 sources)Contusion of ankle; Translations: [Contusion of unspecified ankle, initial encounter]Onset: 04-99-2945NogmfhshLnnaczaqteuc (3 sources)Patient status finding; Translations: [Patient new to provider] Unclassified (1 source)CONTACT W/AND (SUSP) EXPOS COVID-19; Translations: [CONTACT W/AND (SUSP) EXPOS COVID-19]Onset: 93-63-4867Stenvbyzorsh (20 sources)Acute candidiasis of vulva and vagina; Translations: [Acute candidiasis of vulva and vagina] Resolved: 53-89-6637Lzvhqjatqiyu (1 source)Subacute cough R05.2Unclassified (1 source)Post COVID-19 condition, 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Unclassified (1 source)Chronic cough R05.3Unclassified (10 sources)Onset: 03-05-2024 Resolved: 047400-34-9246Ytoepzm tract infections (20 sources)Urethral syndrome; 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] Menard M.D. 08/19/2025 12:27 PM Dictation Location: [place] [address] Tech: Darcy Kraft Transcribed By: LAURA 08/19/25 1227 Dictated By: Juan Jose Menard MD 08/19/256 Signed By: 08/19/[address] [place] [address] Physician GroupUS venous duplex LE [facility] 81-80-0235HB venous duplex LE [facility] Main [place] [address] [place] [address] Ultrasound Report Signed Patient: Lashaun Joaquin MR#: [id number] 99 : 1940 Acct:[id number] Age/Sex: 84 / F ADM Date: 08/19/25 Loc: Room: Type: [facility] Attending Dr: Kaia Krishna OVERNIGHT BABYSITTER-C Ordering Provider: Kaia Krishna APRN Date of [...] cm throughout. There was some varicosities and cardroom attendant sutures also identified which all measure less [...] Menard M.D. 08/19/2025 12:30 PM Dictation Location: [place] [address] Tech: Darcy Kraft Transcribed By: LAURA 08/19/25 1230 Dictated By: Juan Jose Menard MD 08/19/25 1227 Signed By: 08/19/25 1230[facility] Physician GroupGlomerular filtration rate (GFR) estimation in non- AmericanOrdered By: Agueda Fields on 08-16-2025 GFR/1.73 sq M.predicted among non-blacks MDRD (S/P/Bld) [Vol rate/Area]38 mL/min/{1.73_m2}Low>=60 mL/min/1.73m 2FUniversity Hospitals Conne[facility] Center Laboratory - Chemistry and Chemistry - challengeOrdered By: Agueda Fields on 36-94-8416Ntwgoyf [Mass/Vol]8.3 mg/dLLow8.5-10.1FUniversity Hospitals Conneaut Medical CenterChloride [Moles/Vol]97 mmol/EOzq96-077KkckzkrmiTrumbull Regional Medical CenterCO2 [Moles/Vol]27.1 mmol/L21.0-32.0[facility] CenterCreatinine [Mass/Vol]1.33 mg/dLHigh0.55-1.02[facility] CenterGFR/1.73 sq M.predicted MDRD (S/P/Bld) [Vol rate/Area]46 mL/min/{1.73_m2}Low>=60 mL/min/1.73m 2FUniversity Hospitals Conneaut Medical CenterGlucose [Mass/Vol]93 mg/cD53-158 [facility] CenterPotassium [Moles/Vol]4.2 mmol/L3.5-5.1FMetroHealth Main Campus Medical Centerodium [Moles/Vol]134 mmol/VUnm198-298PdqccixseTrumbull Regional Medical CenterUrea nitrogen [Mass/Vol]30.0 mg/dLHigh7.0-18.0[facility] CenterUrea nitrogen/Creatinine [Mass ratio]22.6 mg/mgKettering Health Springfielderum or plasma anion gap determinationOrdered By: Agueda Fields on 63-28-8949Plpvl gap [Moles/Vol]14.1 mmol/LFUniversity Hospitals Conneaut Medical Center Erythrocyte distribution width Auto (RBC) [Ratio]Ordered By: Agueda Azarr on 86-64-1062Wcqjmlifcgd distribution width (RBC) [Ratio]13.6 %11.0-15.0[facility] Medical CenterGlomerular filtration rate (GFR) estimation in non- AmericanOrdered By: Agueda Azarr on 92-20-1879XAP/1.73 sq M.predicted among non-blacks MDRD (S/P/Bld) [Vol rate/Area]35 mL/min/{1.73_m2}Low>=60 mL/min/1.[address]m [address] [place], [place] [address]Hematocrit Auto (Bld) [Volume fraction]Ordered By: Agueda Fields on 33-57-2790Nabgnhhifv (Bld) [Volume fraction]22.7 %Critically low36.0-48.0[facility] Medical CenterComment on above:RESULTS CALLED TO MAI OTERO RNHemoglobin [Mass/volume] in Blood Ordered By: Agueda Fields on 33-46-2481Lifcfwfbfi (Bld) [Mass/Vol]7.6 g/dLLow 12.0-16.0[facility] CenterLaboratory - Chemistry and Chemistry - challengeOrdered By: Agueda Fields on 20-19-9221Ofqgzdi [Mass/Vol]8.4 mg/dL Low8.5-10.1FUniversity Hospitals Conneaut Medical CenterChloride [Moles/Vol]99 mmol/L98-107 [facility] CenterCO2 [Moles/Vol]25.5 mmol/L21.0-32.0[facility] CenterCreatinine [Mass/Vol]1.42 mg/dLHigh0.55-1.02[facility] CenterGFR/1.73 sq M.predicted MDRD (S/P/Bld) [Vol rate/Area]43 mL/min/{1.73_m2}Low>=60 mL/min/1.73m 2FUniversity Hospitals Conneaut Medical CenterGlucose [Mass/Vol]97 mg/mS65-882SocucmqftTrumbull Regional Medical CenterPotassium [Moles/Vol] 4.1 mmol/L3.5-5.1FMetroHealth Main Campus Medical Centerodium [Moles/Vol]136 mmol/L 136-145Tr[facility] Medical CenterUrea nitrogen [Mass/Vol]30.0 mg/dLHigh 7.0-18.0[facility] CenterUrea nitrogen/Creatinine [Mass ratio] 21.1 mg/mgTrumbull Regional Medical CenterLeukocytes [#/volume] corrected for nucleated erythrocytes in Blood by Automated counOrdered By: Agueda Fields on 31-17-5210ZLL corrected for nucl RBC Auto (Bld) [#/Vol]4.8 10 3/uL4.0-11.0 [facility] Auto (RBC) [Entitic mass]Ordered By: Agueda Fields on 50-88-4201RTX (RBC) [Entitic mass]29.2 pg26.7-34.0[facility] Medical CenterMCHC Auto (RBC) [Mass/Vol]Ordered By: Agueda Fields on 94-31-4790FHHE (RBC) [Mass/Vol]33.5 g/dL29.9-35.2FUniversity Hospitals Conneaut Medical CenterMCV Auto (RBC) [Entitic vol]Ordered By: Oblubadah Daromar on 31-82-0437YFX (RBC) [Entitic vol]87.3 fL81.0-99.0[facility] CenterPlatelet mean volume Auto (Bld) [Entitic vol]Ordered By: Oblubadah Daromar on 08-15-2025 Platelet mean volume (Bld) [Entitic vol]10.1 fL9.5-13.5FUniversity Hospitals Conneaut Medical CenterPlatelets Auto (Bld) [#/Vol]Ordered By: Oblubadah Daromar on 59-90-9618Yhiadftge (Bld) [#/Vol]256 10 3/yC645-626JccgawqjhTrumbull Regional Medical CenterRBC Auto (Bld) [#/Vol]Ordered By: Obaydah Daromar on 95-25-3084MLK (Bld) [#/Vol]2.60 10 6/uLLow4.20-5.40K[facility]tering Health Springfielderum or plasma anion gap determinationOrdered By: Oblubadah Daromar on 11-57-9217[place] gap [Moles/Vol]15.6 mmol/LFUniversity Hospitals Conneaut Medical CenterBasophils Auto (Bld) [#/Vol]Ordered By: Seth Dupree on 83-68-4567Hvacrfkkp (Bld) [#/Vol]0.0 10 3/uL 0.0-0.1FUniversity Hospitals Conneaut Medical CenterBasophils/100 WBC Auto (Bld)Ordered By: Seth Dupree on 70-77-7323Uzctelwii/100 WBC (Bld)0.4 %0.2-2.0[facility] CenterEosinophils/100 WBC Auto (Bld)Ordered By: Seth Dupree on 81-13-5404Qorvvwxiqqo/100 WBC (Bld)2.5 %0.9-7.0[facility] Erythrocyte distribution width Auto (RBC) [Ratio]Ordered By: Seth Dupree on 85-00-2285Ijkfvqlomzp distribution width (RBC) [Ratio]13.5 %11.0-15.0[facility] CenterGlomerular filtration rate (GFR) estimation in non- AmericanOrdered By: Seth Dupree on 57-99-0547BPM/1.73 sq M.predicted among non-blacks MDRD (S/P/Bld) [Vol rate/Area]33 mL/min/{1.73_m2}Low>=60 mL/min/1.73m 2FUniversity Hospitals Conneaut Medical CenterHematocrit Auto (Bld) [Volume fraction]Ordered By: Seth Dupree on 21-17-6785Hympxkehga (Bld) [Volume fraction]24.9 %Low36.0-48.0[facility] CenterHemoglobin [Mass/volume] in BloodOrdered By: Seth Dupree on 83-97-5048Sougjwgkfb (Bld) [Mass/Vol]8.2 g/dLLow12.0-16.0[facility] CenterLaboratory - Chemistry and Chemistry - challengeOrdered By: Seth Dupree on 08-14-2025 Calcium [Mass/Vol]8.4 mg/dLLow8.5-10.1FUniversity Hospitals Conneaut Medical CenterChloride [Moles/Vol]101 mmol/M05-301OtzneaupnTrumbull Regional Medical CenterCO2 [Moles/Vol]23.9 mmol/L21.0-32.0[facility] CenterCreatinine [Mass/Vol]1.51 mg/dL High0.55-1.02[facility] CenterGFR/1.73 sq M.predicted MDRD (S/P/Bld) [Vol rate/Area]40 mL/min/{1.73_m2}Low>=60 mL/min/1.[address]m [address] [place], [place] [address]Glucose [Mass/Vol]108 mg/lMChft67-780UhacnofcsTrumbull Regional Medical CenterNatriuretic peptide B (Bld) [Mass/Vol]1330.0 pg/mL<=1800.0 [facility] CenterPotassium [Moles/Vol]4.2 mmol/L3.5-5.1FMetroHealth Main Campus Medical Centerodium [Moles/Vol]134 mmol/CNga692-796ZsymifnraTrumbull Regional Medical CenterUrea nitrogen [Mass/Vol]32.0 mg/dLHigh7.0-18.0[facility] CenterUrea nitrogen/Creatinine [Mass ratio]21.2 mg/mgTrumbull Regional Medical CenterLaboratory - Hematology and Cell countsOrdered By: Seth Dupree on 74-21-8452Xckghvpy granulocytes/100 WBC (Bld)0.4 %0.0-0.5FUniversity Hospitals Conneaut Medical CenterLeukocytes [#/volume] corrected for nucleated erythrocytes in Blood by Automated counOrdered By: Seth Dupree on 41-24-6310WTN corrected for nucl RBC Auto (Bld) [#/Vol]6.9 10 3/uL4.0-11.0[facility] Lymphocytes Auto (Bld) [#/Vol]Ordered By: Seth Dupree on 71-45-5675Veeumuykawv (Bld) [#/Vol]0.7 10 3/uLLow1.2-3.8[facility] Lymphocytes/100 WBC Auto (Bld)Ordered By: Seth Dupree on 08-14-2025 Lymphocytes/100 WBC (Bld)9.4 %Low20.5-60.0[facility]H Auto (RBC) [Entitic mass]Ordered By: Seth uDpree on 56-41-6481IPN (RBC) [Entitic mass]28.3 pg26.7-34.0[facility] Medical CenterMCHC Auto (RBC) [Mass/Vol]Ordered By: Seth Dupree on 13-83-6724GLWB (RBC) [Mass/Vol]32.9 g/dL 29.9-35.2FUniversity Hospitals Conneaut Medical CenterMCV Auto (RBC) [Entitic vol]Ordered By: Seth Dupree on 13-27-1374AIV (RBC) [Entitic vol]85.9 fL81.0-99.0[facility] CenterMonocytes Auto (Bld) [#/Vol]Ordered By: Seth Dupree on 97-02-1288Cveiuqlla (Bld) [#/Vol]0.5 10 3/uL0.3-0.8[facility] CenterMonocytes/100 WBC Auto (Bld)Ordered By: Seth Dupree on 08-14-2025 Monocytes/100 WBC (Bld)6.7 %1.7-12.0[facility] CenterNeutrophils Auto (Bld) [#/Vol]Ordered By: Seth Dupree on 47-55-5164Svfgepwambw (Bld) [#/Vol]5.6 10 3/uL1.4-6.5FUniversity Hospitals Conneaut Medical CenterNeutrophils/100 WBC Auto (Bld)Ordered By: Seth Dupree on 14-95-1845Vfouxvdteqm/100 WBC (Bld)80.6 % High43.0-75.0[facility] CenterNo Panel InformationOrdered By: Seth Dupree on 04-87-9060Lwpigrrdruy # (Auto)0.2 10 3/uL0.0-0.7FUniversity Hospitals Conneaut Medical CenterImmature Granulocyte # (Auto)0.03 10 3/uL0.00-0.03 [facility] CenterTroponin I High Eodmfnmlvlx62.5 pg/mL4.0-51.3 [facility] CenterComment on above:CUT-OFF POINTS HAVE BEEN ESTABLISHED [...] (Bld) [Entitic vol]Ordered By: Seth Dupree on 50-78-0412Pssajjnf mean volume (Bld) [Entitic vol]10.0 fL9.5-13.5FUniversity Hospitals Conneaut Medical Center Platelets Auto (Bld) [#/Vol]Ordered By: Seth Dupree on 65-23-7273Gfosdgfxx (Bld) [#/Vol]276 10 3/oM473-789BjixuxxhzTrumbull Regional Medical CenterRBC Auto (Bld) [#/Vol]Ordered By: Seth Dupree on 31-59-4536DNL (Bld) [#/Vol]2.90 10 6/uLLow 4.20-5.40K[facility] Health Springfielderum or plasma anion gap determinationOrdered By: Seth Dupree on 84-95-1019Vufoq gap [Moles/Vol]13.3 mmol/LFUniversity Hospitals Conneaut Medical CenterBasophils Auto (Bld) [#/Vol]Ordered By: Obiggy Robleroomar on 44-55-3744Mtvgqkwva (Bld) [#/Vol]0.0 10 3/uL0.0-0.1FUniversity Hospitals Conneaut Medical CenterBasophils/100 WBC Auto (Bld)Ordered By: Oblubadapito Robleroomar on 65-60-3472Afekxctgb/100 WBC (Bld)0.8 %0.2-2.0[facility] CenterEosinophils/100 WBC Auto (Bld)Ordered By: Obiggy Robleroomar on 08-11-2025 Eosinophils/100 WBC (Bld)4.4 %0.9-7.0[facility] Erythrocyte distribution width Auto (RBC) [Ratio]Ordered By: Agueda Robleroomar on 91-07-7178Mcmtbjjccug distribution width (RBC) [Ratio]13.4 %11.0-15.0[facility] CenterGlomerular filtration rate (GFR) estimation in non- AmericanOrdered By: Agueda Azarr on 16-25-8939RFC/1.73 sq M.predicted among non-blacks MDRD (S/P/Bld) [Vol rate/Area]37 mL/min/{1.73_m2}Low>=60 mL/min/1.73m 2FUniversity Hospitals Conneaut Medical CenterHematocrit Auto (Bld) [Volume fraction]Ordered By: Agueda Azarr on 44-09-3411Ymblrdszfq (Bld) [Volume fraction]23.7 %Critically low36.0-48.0[facility] CenterComment on above:RESULTS CALLED TO ETHAN ZULETA RNHemoglobin [Mass/volume] in BloodOrdered By: Agueda Fields on 81-77-6767Wiobnbqyep (Bld) [Mass/Vol]8.0 g/dLLow 12.0-16.0[facility] CenterLaboratory - Chemistry and Chemistry - challengeOrdered By: Agueda Fields on 05-95-7788Cguhmnc [Mass/Vol]8.5 mg/dL 8.5-10.1FUniversity Hospitals Conneaut Medical CenterChloride [Moles/Vol]107 mmol/L98-107 [facility] CenterCO2 [Moles/Vol]26.9 mmol/L21.0-32.0[facility] CenterCreatinine [Mass/Vol]1.36 mg/dLHigh0.55-1.02[facility] CenterGFR/1.73 sq M.predicted MDRD (S/P/Bld) [Vol rate/Area]45 mL/min/{1.73_m2}Low>=60 mL/min/1.73m 2FUniversity Hospitals Conneaut Medical CenterGlucose [Mass/Vol]91 mg/dY08-944QmjoytsxuTrumbull Regional Medical CenterPotassium [Moles/Vol] 3.9 mmol/L3.5-5.1FMetroHealth Main Campus Medical Centerodium [Moles/Vol]143 mmol/L 136-145[facility] Medical CenterUrea nitrogen [Mass/Vol]31.0 mg/dLHigh 7.0-18.0[facility] CenterUrea nitrogen/Creatinine [Mass ratio] 22.8 mg/mgTrumbull Regional Medical CenterLaboratory - Hematology and Cell countsOrdered By: Agueda Fields on 12-42-2307Nqfktvsn granulocytes/100 WBC (Bld)0.4 %0.0-0.5FUniversity Hospitals Conneaut Medical CenterLeukocytes [#/volume] corrected for nucleated erythrocytes in Blood by Automated counOrdered By: Agueda Fields on 81-88-2390PKN corrected for nucl RBC Auto (Bld) [#/Vol]5.0 10 3/uL4.0-11.0[facility] CenterLymphocytes Auto (Bld) [#/Vol] Ordered By: Agueda Fields on 24-60-7925Pxpjcazjaoz (Bld) [#/Vol]0.8 10 3/uLLow 1.2-3.8[facility] CenterLymphocytes/100 WBC Auto (Bld)Ordered By: Agueda Fields on 63-95-8648Elimwbsjkly/100 WBC (Bld)15.6 %Low20.5-60.0 [facility] CenterMCH Auto (RBC) [Entitic mass]Ordered By: Oblubadapito Daromar on 12-58-7735UWE (RBC) [Entitic mass]29.0 pg26.7-34.0[facility] Medical CenterMCHC Auto (RBC) [Mass/Vol]Ordered By: Oblubadah Daromar on 08-58-6819RZIR (RBC) [Mass/Vol]33.8 g/dL29.9-35.2FUniversity Hospitals Conneaut Medical CenterMCV Auto (RBC) [Entitic vol]Ordered By: Oblubadapito Daromar on 06-85-7077PTJ (RBC) [Entitic vol]85.7 fL81.0-99.0[facility] CenterMonocytes Auto (Bld) [#/Vol]Ordered By: Oblubadah Daromar on 61-76-1524Lpoqvvnpt (Bld) [#/Vol]0.6 10 3/uL0.3-0.8[facility] CenterMonocytes/100 WBC Auto (Bld)Ordered By: Oblubadah Daromar on 34-18-6574Kkmtmildj/100 WBC (Bld)11.4 % 1.7-12.0[facility] Medical CenterNeutrophils Auto (Bld) [#/Vol]Ordered By: Obaydah Daromar on 17-83-2488Lzwkjmggwzk (Bld) [#/Vol]3.4 10 3/uL1.4-6.5 [facility] CenterNeutrophils/100 WBC Auto (Bld)Ordered By: Oblubadah Daromar on 29-58-0178Eyaumrxsmzo/100 WBC (Bld)67.4 %43.0-75.0[facility] CenterNo Panel InformationOrdered By: Oblubadah Daromar on 06-23-9749Rgwrmfwozig # (Auto)0.2 10 3/uL0.0-0.7FUniversity Hospitals Conneaut Medical CenterImmature Granulocyte # (Auto)0.02 10 3/uL0.00-0.03[facility] CenterPlatelet mean volume Auto (Bld) [Entitic vol]Ordered By: Obaydah Daromar on 87-22-5493Jaeyxygs mean volume (Bld) [Entitic vol]9.8 fL9.5-13.5 [facility] CenterPlatelets Auto (Bld) [#/Vol]Ordered By: Obaydah Daromar on 70-18-0156Exyyoosoo (Bld) [#/Vol]236 10 3/pY418-245HjpkxhuswTrumbull Regional Medical CenterRBC Auto (Bld) [#/Vol]Ordered By: Obaydah Daromar on 35-72-8868JAD (Bld) [#/Vol]2.59 10 6/uLLow4.20-5.40[facility] Springfielderum or plasma anion gap determinationOrdered By: Obaydah Daromar on 79-85-4582Zsphv gap [Moles/Vol]13.0 mmol/LFUniversity Hospitals Conneaut Medical Center Basophils Auto (Bld) [#/Vol]Ordered By: Cher Marker on 40-52-3308Bwwiomnbk (Bld) [#/Vol]0.0 10 3/uL0.0-0.1FUniversity Hospitals Conneaut Medical CenterBasophils/100 WBC Auto (Bld)Ordered By: Cher Marker on 83-40-7846Clernsulz/100 WBC (Bld)0.5 %0.2-2.0[facility] CenterEosinophils/100 WBC Auto (Bld)Ordered By: Cher Marker on 38-33-0097Qzupstizrqu/100 WBC (Bld)2.1 %0.9-7.0[facility] CenterErythrocyte distribution width Auto (RBC) [Ratio]Ordered By: Cher Marker on 07-94-2212Hfnabgpvwsz distribution width (RBC) [Ratio]13.2 %11.0-15.0[facility] CenterGlobulin Calc (S) [Mass/Vol]Ordered By: Cher Marker on 64-24-4871Hevfwjqw (S) [Mass/Vol]3.2 g/dLTrumbull Regional Medical CenterGlomerular filtration rate (GFR) estimation in non- AmericanOrdered By: Cher Marker on 78-96-9140LFS/1.73 sq M.predicted among non-blacks MDRD (S/P/Bld) [Vol rate/Area]37 mL/min/{1.73_m2}Low>=60 mL/min/1.73m 2FUniversity Hospitals Conneaut Medical CenterHematocrit Auto (Bld) [Volume fraction]Ordered By: Cher Marker on 75-21-3234Igawxyahng (Bld) [Volume fraction]25.9 %Low36.0-48.0[facility] CenterHemoglobin [Mass/volume] in BloodOrdered By: Cher Marker on 13-28-6519Fnozybjfmf (Bld) [Mass/Vol]8.7 g/dLLow12.0-16.0[facility] CenterLaboratory - Chemistry and Chemistry - challengeOrdered By: Agueda Fields on 08-10-2025 Bilirubin Ql (U)NegativeNEGATIVETrumbull Regional Medical CenterGlucose (U) [Mass/Vol]NegativeNEGATIVETrumbull Regional Medical CenterKetones Ql (U) NegativeNEGATIVETrumbull Regional Medical CenterpH (U)6.0 [pH]5.0-9.0[facility] Springfieldpecific gravity (U) [Rel density]1.0101.005-1.025 [facility] CenterUrobilinogen Qn (U)0.2 {Rossy'U}/dL0.2-1.0 [facility] CenterLaboratory - Chemistry and Chemistry - challengeOrdered By: Cher Marker on 22-03-7329Posbuof [Mass/Vol]3.1 g/dLLow 3.4-5.0[facility] CenterALP [Catalytic activity/Vol]46 U/L46-116 [facility] CenterALT [Catalytic activity/Vol]19 U/L14-59 [facility] CenterAST [Catalytic activity/Vol]20 U/L15-37 [facility] CenterBilirubin [Mass/Vol]0.4 mg/dL0.2-1.0[facility] CenterCalcium [Mass/Vol]8.6 mg/dL8.5-10.1FUniversity Hospitals Conneaut Medical CenterChloride [Moles/Vol]102 mmol/E87-359MvnvjmmgrTrumbull Regional Medical CenterCO2 [Moles/Vol]26.6 mmol/L21.0-32.0[facility] Creatinine [Mass/Vol]1.36 mg/dLHigh0.55-1.02[facility] GFR/1.73 sq M.predicted MDRD (S/P/Bld) [Vol rate/Area]45 mL/min/{1.73_m2}Low>=60 mL/min/1.73m 2FUniversity Hospitals Conneaut Medical CenterGlucose [Mass/Vol]116 mg/dLHigh 74-106[facility] CenterLactate [Moles/Vol]0.8 mmol/L0.4-2.0 [facility] CenterNatriuretic peptide B (Bld) [Mass/Vol]1378.0 pg/mL<=1800.0[facility] CenterPotassium [Moles/Vol]3.8 mmol/L 3.5-5.1FUniversity Hospitals Conneaut Medical CenterProtein [Mass/Vol]6.3 g/dLLow6.4-8.2 [facility]odium [Moles/Vol]141 mmol/M835-855GwrxgfnrmTrumbull Regional Medical CenterUrea nitrogen [Mass/Vol]34.0 mg/dLHigh7.0-18.0[facility] CenterUrea nitrogen/Creatinine [Mass ratio]25.0 mg/mgTrumbull Regional Medical CenterLaboratory - Hematology and Cell countsOrdered By: Cher Marker on [id number] granulocytes/100 WBC (Bld)0.5 %0.0-0.5 [facility] CenterLaboratory - Specimen informationOrdered By: Agueda Fields on [id number] (U)CLEARCLEARFUniversity Hospitals Conneaut Medical CenterColor (U)LT. YELLOWYELLOWTrumbull Regional Medical CenterLaboratory - UrinalysisOrdered By: Agueda Fields on 26-92-6609Bgfhvrdko esterase Test strip Ql (U)TRACEAbnormalNEGATIVETrumbull Regional Medical CenterMucus Ql (Urine sed) NONE SEENNONE SEENTrumbull Regional Medical CenterNitrite Ql (U)Negative NEGATIVETrumbull Regional Medical CenterProtein Ql (U)100 mg/dLAbnormal NEG/TRACETrumbull Regional Medical CenterLeukocytes [#/volume] corrected for nucleated erythrocytes in Blood by Automated counOrdered By: Cher Marker on 70-65-2961DLD corrected for nucl RBC Auto (Bld) [#/Vol]6.2 10 3/uL4.0-11.0 [facility] CenterLymphocytes Auto (Bld) [#/Vol]Ordered By: Cher Marker on 73-35-7825Kvkglgmvwpz (Bld) [#/Vol]0.9 10 3/uLLow1.2-3.8 [facility] CenterLymphocytes/100 WBC Auto (Bld)Ordered By: Cher Marker on 24-37-9176Mfzuhawhutg/100 WBC (Bld)14.4 %Low20.5-60.0[facility]H Auto (RBC) [Entitic mass]Ordered By: Cher Marker on 39-22-2061AIU (RBC) [Entitic mass]29.0 pg26.7-34.0[facility] Medical CenterMCHC Auto (RBC) [Mass/Vol]Ordered By: Cher Marker on 85-14-0034TNFB (RBC) [Mass/Vol]33.6 g/dL29.9-35.2FUniversity Hospitals Conneaut Medical CenterMCV Auto (RBC) [Entitic vol]Ordered By: Cher Marker on 24-16-3949TQJ (RBC) [Entitic vol]86.3 fL81.0-99.0[facility] CenterMonocytes Auto (Bld) [#/Vol]Ordered By: Cher Marker on 39-07-5436Jxqckluhe (Bld) [#/Vol]0.5 10 3/uL0.3-0.8[facility] CenterMonocytes/100 WBC Auto (Bld)Ordered By: Cher Marker on 84-21-5649Cxsajiaqq/100 WBC (Bld)8.1 %1.7-12.0[facility] Medical CenterNeutrophils Auto (Bld) [#/Vol]Ordered By: Cher Marker on 95-71-9156Qiqeqeqjary (Bld) [#/Vol]4.6 10 3/uL1.4-6.5FUniversity Hospitals Conneaut Medical CenterNeutrophils/100 WBC Auto (Bld)Ordered By: Cher Marker on 51-94-1653Hgardkayfmr/100 WBC (Bld)74.4 %43.0-75.0[facility] CenterNo Panel InformationOrdered By: Agueda Fields on 15-99-5455Amtmk BacteriaTRACE #/HPFAbnormalNONE SEENTrumbull Regional Medical CenterUrine Culture ReflexedNOTrumbull Regional Medical CenterUrine Occult BloodLARGE AbnormalNEGATIVETrumbull Regional Medical CenterUrine Other CastsNONE SEEN #/LPFNONE [facility] WestUrine Other CrystalsNone Seen #/HPFNone [facility] HospitalUrine GIT64-73 #/HPFAbnormal0-2 [facility] CenterUrine Squamous Epithelial CellsFEW #/LPF AbnormalNONE/RARETrumbull Regional Medical CenterUrine WBC0-2 #/HPFAbnormalNONE [facility] - WestNo Panel InformationOrdered By: Cher Marker on 48-42-6180Jpnitcslupc # (Auto)0.1 10 3/uL0.0-0.7FUniversity Hospitals Conneaut Medical CenterImmature Granulocyte # (Auto)0.03 10 3/uL0.00-0.03[facility] Medical CenterTroponin I High Whluhfxpile36.5 pg/mL4.0-51.3FUniversity Hospitals Conneaut Medical CenterComment on above:CUT-OFF POINTS HAVE BEEN ESTABLISHED [...] (Bld) [Entitic vol]Ordered By: Cher Marker on 00-47-0373Grtrkpau mean volume (Bld) [Entitic vol]9.9 fL9.5-13.5FUniversity Hospitals Conneaut Medical Center Platelets Auto (Bld) [#/Vol]Ordered By: Cher Marker on 00-15-0676Cdbxkdpbd (Bld) [#/Vol]274 10 3/jU244-963BpwtalgnzTrumbull Regional Medical CenterRBC Auto (Bld) [#/Vol]Ordered By: Cher Marker on 40-78-2167VOM (Bld) [#/Vol]3.00 10 6/uLLow 4.20-5.40[facility]tering Health Springfielderum or plasma albumin/globulin mass ratioOrdered By: Cher Marker on 41-27-4569Oiduvqs/Globulin [Mass ratio]1.0 {ratio}[facility]tering Health Springfielderum or plasma anion gap determination Ordered By: Cher Marker on 03-33-7003Ppqyp gap [Moles/Vol]16.2 mmol/L [facility] CenterBasophils Auto (Bld) [#/Vol]Ordered By: Valentin Leonard on 08-08-0730Szpximyvf (Bld) [#/Vol]0.05 10*3/uL<0.11[facility] CenterBasophils/100 WBC Auto (Bld)Ordered By: Valentin Leonard on 89-55-6923Zyvjgnszs/100 WBC (Bld)0.8 %[facility] CenterBlood manual differential comment interpretation narrativeOrdered By: Valentin Leonard on 16-66-4322Pfloet differential comment Arturo (Bld) [Interp]AutoTrumbull Regional Medical CenterCB W Auto Differential panel (Bld)on 63-73-7032Fksncoiru (Bld) [#/Vol]0.05 10*3/uLNormal<0.11CC[facility] on above: Order Comment: Specimen Type: BLOOD SPECIMEN Ordering Facility: [facility] Address: [address] [place], [place] [address]Performed By: #### 66477-3 #### [facility] CLIA [id number] [address] [place] [address] [place] [address] [place] OF AMERICABasophils/100 WBC (Bld)0.8 % NormalCleveland Clinic Luther[facility] on above:Order Comment: Specimen Type: BLOOD SPECIMEN Ordering Facility: [facility] Address: [address] [place], [place] [address]Performed By: #### 16839-2 #### [facility] CLIA [id number] [address] [place] [address] [place] OF AMERICADifferential cell count method Nom (Bld)AutoNormalCCleveland Clinic Akron General on above:Order Comment: Specimen Type: BLOOD SPECIMEN Ordering Facility: [facility] Address: [address] [place], [place] [address]Performed By: #### 68881-1 #### [facility] [place] [id number] [address] [place] [address] [place] AMERICAEosinophils (Bld) [#/Vol] 0.16 10*3/uLNormal<0.46[facility] on above:Order Comment: Specimen Type: BLOOD SPECIMEN Ordering Facility: [facility] Address: [address] [place], [place] [address]Performed By: #### 64236-0 #### [facility] [place] [id number] [address] [place] [address] [place] AMERICAEosinophils/100 WBC (Bld)2.5 %NormalCleveland Clinic Lutheran Hospital on above:Order Comment: Specimen Type: BLOOD SPECIMEN Ordering Facility: [facility] Address: [address] [place], [place] [address]Performed By: #### 48698-5 #### [facility] CLIA [id number] [address] [place] [address] [place] AMERICAErythrocyte distribution width (RBC) [Ratio]13.5 %Cauhxo94.5-15.0[facility] on above:Order Comment: Specimen Type: BLOOD SPECIMEN Ordering Facility: [facility] Address: [address] [place], [place] [address]Performed By: #### 83865-1 #### [facility] CLIA [id number] [address] [place] [address] [place] OF AMERICAHematocrit (Bld) [Volume fraction]27.6 %Low36.0-46.0[facility] on above:Order Comment: Specimen Type: BLOOD SPECIMEN Ordering Facility: [facility] Address: [address] [place], [place] [address]Performed By: #### 00031-2 #### [facility] CLIA [id number] [address] [place] [address] [place] AMERICAHemoglobin (Bld) [Mass/Vol] 8.9 g/dLLow11.5-15.5CC[facility] on above:Order Comment: Specimen Type: BLOOD SPECIMEN Ordering Facility: [facility] Address: [address] [place], [place] [address]Performed By: #### 14313-7 #### [facility] CLIA [id number] [address] [place] [address] [place] AMERICAImmature granulocytes (Bld) [#/Vol]0.03 10*3/uLNormal<0.10[facility] on above:Order Comment: Specimen Type: BLOOD SPECIMEN Ordering Facility: [facility] Address: [address] [place], [place] [address]Performed By: #### 59207-9 #### [facility] CLIA [id number] [address] [place] [address] [place] AMERICAImmature granulocytes/100 WBC (Bld)0.5 %NormalCleveland Clinic Lutheran Hospital on above:Order Comment: Specimen Type: BLOOD SPECIMEN Ordering Facility: [facility] Address: [address] [place], [place] [address]Performed By: #### 28221-8 #### [facility] CLIA [id number] [address] [place] [address] [place] OF AMERICALymphocytes (Bld) [#/Vol] 0.77 10*3/uLLow1.00-4.00[facility] on above:Order Comment: Specimen Type: BLOOD SPECIMEN Ordering Facility: [facility] Address: [address] [place], [place] [address]Performed By: #### 57102-1 #### [facility] CLIA [id number] [address] [place] [address] [facility] SOUTH SHORELymphocytes/100 WBC (Bld) 12.3 %NormalCleveland Clinic Lutheran Hospital on above:Order Comment: Specimen Type: BLOOD SPECIMEN Ordering Facility: [facility] Address: [address] [place], [place] [address]Performed By: #### 71469-8 #### [facility] CLIA [id number] [address] [place] [address] (RBC) [Entitic mass]28.8 qpJrzsim23.0-34.0[facility] on above:Order Comment: Specimen Type: BLOOD SPECIMEN Ordering Facility: [facility] Address: [address] [place], [place] [address]Performed By: #### 49677-0 #### [facility] CLIA [id number] [address] [place] [address] (RBC) [Mass/Vol]32.2 g/aXPodmez08.5-36.0[facility] on above:Order Comment: Specimen Type: BLOOD SPECIMEN Ordering Facility: [facility] Address: [address] [place], [place] [address]Performed By: #### 13568-2 #### [facility] CLIA [id number] [address] [place] [address] (RBC) [Entitic vol]89.3 tCPtzhay45.0-100.0[facility] on above:Order Comment: Specimen Type: BLOOD SPECIMEN Ordering Facility: [facility] Address: [address] [place], [place] [address]Performed By: #### 27648-1 #### [facility] CLIA [id number] [address] [place] [address] [place] AMERICAMonocytes (Bld) [#/Vol]0.65 10*3/uLNormal<0.87[facility] on above:Order Comment: Specimen Type: BLOOD SPECIMEN Ordering Facility: [facility] Address: [address] [place], [place] [address]Performed By: #### 45053-3 #### [facility] CLIA [id number] [address] [place] [address] [place] AMERICAMonocytes/100 WBC (Bld)10.4 %NormalCleveland Clinic Lutheran Hospital on above:Order Comment: Specimen Type: BLOOD SPECIMEN Ordering Facility: [facility] Address: [address] [place], [place] [address]Performed By: #### 64276-9 #### [facility] CLIA [id number] [address] [place] [address] [place] AMERICANeutrophils (Bld) [#/Vol] 4.62 10*3/uLNormal1.45-7.50[facility] on above:Order Comment: Specimen Type: BLOOD SPECIMEN Ordering Facility: [facility] Address: [address] [place], [place] [address]Performed By: #### 69059-3 #### [facility] CLIA [id number] [address] [place] [address] [place] AMERICANeutrophils/100 WBC (Bld) 73.5 %NormalCleveland Clinic Lutheran Hospital on above:Order Comment: Specimen Type: BLOOD SPECIMEN Ordering Facility: [facility] Address: [address] [place], [place] [address]Performed By: #### 30476-6 #### [facility] CLIA [id number] [address] [place] [address] [place] AMERICANucleated RBC (Bld) [#/Vol] 10*3/uLNormal<0.01[facility] on above:Order Comment: Specimen Type: BLOOD SPECIMEN Ordering Facility: [facility] Address: [address] [place], [place] [address]Performed By: #### 50649-5 #### [facility] CLIA [id number] [address] [place] [address] [place] AMERICANucleated RBC/100 WBC (Bld) [Ratio]0.0 /100 WBCNormalCCleveland Clinic [facility] on above:Order Comment: Specimen Type: BLOOD SPECIMEN Ordering Facility: [facility] Address: [address] [place], [place] [address]Performed By: #### 75444-3 #### [facility] CLIA [id number] [address] [place] [address] [place] AMERICAPlatelet mean volume (Bld) [Entitic vol]9.9 fLNormal9.0-12.7CC[facility] on above: Order Comment: Specimen Type: BLOOD SPECIMEN Ordering Facility: [facility] Address: [address] [place], [place] [address]Performed By: #### 41298-6 #### [facility] CLIA [id number] [address] [place] [address] [place] AMERICAPlatelets (Bld) [#/Vol]295 10*3/jPBojlyv964-526TzhsiwgizCleveland Clinic Luther[facility] Hospital on above:Order Comment: Specimen Type: BLOOD SPECIMEN Ordering Facility: [facility] Address: [address] [place], [place] [address]Performed By: #### 00089-7 #### [facility] CLIA [id number] [address] [place] [address] [place] AMERICARBC (Bld) [#/Vol]3.09 10*6/uLLow3.90-5.20[facility] on above:Order Comment: Specimen Type: BLOOD SPECIMEN Ordering Facility: [facility] Address: [address] [place], [place] [address]Performed By: #### 61854-0 #### [facility] CLIA [id number] [address] [place] [address] [place] AMERICAWBC (Bld) [#/Vol]6.28 10*3/uLNormal3.70-11.00[facility] on above:Order Comment: Specimen Type: BLOOD SPECIMEN Ordering Facility: [facility] Address: [address] [place], [place] [address]Performed By: #### 40218-4 #### [facility] CLIA [id number] [address] [place], [place] [address]Comprehensive metabolic 2000 panelon 23-67-8944Oznfxfn [Mass/Vol]3.7 g/dLLow3.9-4.9CC[facility] on above:Order Comment: Specimen Type: BLOOD SPECIMEN Ordering Facility: [facility] Address: [address] [place], [place] [address]Performed By: #### 25887-6 #### [facility] CLIA [id number] [address] [place] [address]JOX [Catalytic activity/Vol]45 U/KDinsvl39-058FywipwsfzCleveland Clinic Luther[facility] Hospital on above:Order Comment: Specimen Type: BLOOD SPECIMEN Ordering Facility: [facility] Address: [address] [place], [place] [address]Performed By: #### 43834-9 #### [facility] CLIA [id number] [address] [place], [place] [address]HWH [Catalytic activity/Vol]10 U/LNormal7-38[facility] on above:Order Comment: Specimen Type: BLOOD SPECIMEN Ordering Facility: [facility] Address: [address] [place], [place] [address]Performed By: #### 50213-6 #### [facility] CLIA [id number] [address] [place], [place] [address]Tqehd gap [Moles/Vol]10 mmol/LNormal8-15[facility] on above:Order Comment: Specimen Type: BLOOD SPECIMEN Ordering Facility: [facility] Address: [address] [place], [place] [address]Performed By: #### 94146-0 #### [facility] CLIA [id number] [address] [place], [place] [address]ERO [Catalytic activity/Vol]16 U/WVimqsf17-13OhkzbyqfsCleveland Clinic Luther[facility] Hospital on above:Order Comment: Specimen Type: BLOOD SPECIMEN Ordering Facility: [facility] Address: [address] [place], [place] [address]Performed By: #### 66087-0 #### [facility] CLIA [id number] [address] [place] [address]Rumnutuwl [Mass/Vol]0.3 mg/dLNormal0.2-1.3CC[facility] on above:Order Comment: Specimen Type: BLOOD SPECIMEN Ordering Facility: [facility] Address: [address] [place], [place] [address]Performed By: #### 72152-6 #### [facility]MI[facility] CLIA [id number] [address] [place] [address]Lvwpacr [Mass/Vol]9.0 mg/dLNormal8.5-10.2CC[facility] on above:Order Comment: Specimen Type: BLOOD SPECIMEN Ordering Facility: [facility] Address: [address] [place], [place] [address]Performed By: #### 46339-5 #### [facility] CLIA [id number] [address] [place] [address]Gchcdfts [Moles/Vol]101 mmol/RRtznri53-525QppeztjeyCleveland Clinic Luther[facility] Hospital on above:Order Comment: Specimen Type: BLOOD SPECIMEN Ordering Facility: [facility] Address: [address] [place], [place] [address]Performed By: #### 93529-2 #### [facility] CLIA [id number] [address] [place], [place] [address]XM1 [Moles/Vol]28 mmol/ULxgsep61-94YzuwlyboaElyria Memorial Hospital Comment on above:Order Comment: Specimen Type: BLOOD SPECIMEN Ordering Facility: [facility] Address: [address] [place], [place] [address]Performed By: #### 84627-1 #### [facility] CLIA [id number] [address] [place] [address]Tasxzehkte [Mass/Vol]1.64 mg/dLHigh0.58-0.96[facility] HospitalComment on above:Order Comment: Specimen Type: BLOOD SPECIMEN Ordering Facility: [facility] Address: [address] [place], [place] [address]Performed By: #### 16626-0 #### [facility] CLIA [id number] [address] [place] [address]vFAPuu SerPlBld CKD-EPI 088402 mL/min/1.73m???Low>=60[facility] Memorial HospitalComment on above:Order Comment: Specimen Type: BLOOD SPECIMEN Ordering Facility: [facility] Address: [address] [place], [place] [address]Result Comment: Estimated Glomerular Filtration Rate (eGFR) is [...] not accurately reflect actual GFR.Performed By: #### 31776-3 #### [facility] CLIA [id number] [address] [place] [address]Veqlfwu [Mass/Vol]103 mg/uHSnms69-12BnwwuakpiElyria Memorial Hospital Comment on above:Order Comment: Specimen Type: BLOOD SPECIMEN Ordering Facility: [facility] Address: [address] [place], [place] [address]Result Comment: The [place] [employer] (ADA) provides guidance for cutoff [...] Standards of Medical Care in Diabetes 2016, [place] [employer]. Diabetes Care. 2016.39(Suppl 1).Performed By: #### 12274-7 #### [facility] CLIA [id number] [address] [place] [address]Dmpjwuvdu [Moles/Vol]4.7 mmol/LNormal3.7-5.1CC[facility] Clinic [facility] on above:Order Comment: Specimen Type: BLOOD SPECIMEN Ordering Facility: [facility] Address: [address] [place], [place] [address]Performed By: #### 74761-2 #### [facility] CLIA [id number] [address] [place] [address]Hxomufb [Mass/Vol]5.9 g/dLLow6.3-8.0[facility] Comment on above:Order Comment: Specimen Type: BLOOD SPECIMEN Ordering Facility: [facility] Address: [address] [place], [place] [address]Performed By: #### 02020-8 #### [facility] CLIA [id number] [address] [place] [address]Nlqxjq [Moles/Vol]139 mmol/PTofovf793-296ZsjfnltcxElyria Memorial HospitalComascension borg[facility] on above:Order Comment: Specimen Type: BLOOD SPECIMEN Ordering Facility: [facility] Address: [address] [place], [place] [address]Performed By: #### 29975-9 #### [facility] CLIA [id number] [address] [place] [address]Kaie nitrogen [Mass/Vol]32 mg/dLHigh7-21[facility] on above:Order Comment: Specimen Type: BLOOD SPECIMEN Ordering Facility: [facility] Address: [address] [place], [place] [address]Performed By: #### 45232-9 #### [facility] CLIA [id number] [address] [place] [address]SUC SerPl-aCncon 46-57-0462Xsinigcowmwuix (EPO) Qn26.4 mIU/mL High2.6-18.5CC[facility] on above:Order Comment: Specimen Type: BLOOD SPECIMEN Ordering Facility: [facility] Address: [address] [place], [place] [address]Performed By: #### 81160-1 #### [facility] CLIA [id number] [address] [place] [address] [place] AMERICAEosinophils/100 WBC Auto (Bld)Ordered By: Valentin Leonard on 26-17-1215Mvlwwevzxju/100 WBC (Bld)2.5 % [facility] CenterErythrocyte distribution width Auto (RBC) [Ratio]Ordered By: Valentin Abhyankar on 45-36-0174Fhlsooollxc distribution width (RBC) [Ratio]13.5 %11.5-15.0[facility] Medical CenterFerritin SerPl-mCnc on 28-41-2535Ogyfvfbp [Mass/Vol]174.0 ng/mDNhrcky08.7-205.1CC[facility] on above:Order Comment: Specimen Type: BLOOD SPECIMEN Ordering Facility: [facility] Address: [address] [place], [place] [address]Performed By: #### 88628-4, 2284-8, 2132-9, 2276-4 #### [facility] CLIA [id number] [address] [place] [address] [place] AMERICAFolate SerPl-mCncon 95-28-8017Bzlpym [Mass/Vol]17.5 ng/mLNormal>4.7CC[facility] on above:Order Comment: Specimen Type: BLOOD SPECIMEN Ordering Facility: [facility] Address: [address] [place], [place] [address]Performed By: #### 10637-9, 2283-8, 9, 2275-4 #### [facility] CLIA [id number] [address] [place] [address] [place] AMERICAGlomerular filtration rate [Volume Rate/Area] in Serum, Plasma or Blood by CreatinineOrdered By: Valentin Leonard on 77-60-3775Aeyaqbwmyk filtration rate [Volume Rate/Area] in Serum, Plasma or Blood by Palkodjqpn17 mL/min/1.73m???Low>=60[facility] Medical CenterComment on above:Estimated Glomerular Filtration Rate (eGFR) is [...] Leonard on 07-15-2025 Hematocrit (Bld) [Volume fraction]27.6 %Low36.0-46.0[facility] CenterHemoglobin [Mass/volume] in BloodOrdered By: Valentin Leonard on 07-15-2025 Hemoglobin (Bld) [Mass/Vol]8.9 g/dLLow11.5-15.5FUniversity Hospitals Conneaut Medical Center Iron and Iron binding capacity panelon 57-93-2267Aqbe [Mass/Vol]45 ug/dLNormal 41-186[facility] on above:Order Comment: Specimen Type: BLOOD SPECIMEN Ordering Facility: [facility] Address: [address] [place], [place] [address]Performed By: #### 59561-8, 2283-8, 9, 4 #### [facility] CLIA [id number] [address] [place] [address] [place] AMERICAIron binding capacity [Mass/Vol]255 ug/bBQaanmf932-628AarefevchCleveland Clinic Luther[facility] Hospital on above:Order Comment: Specimen Type: BLOOD SPECIMEN Ordering Facility: [facility] Address: [address] [place], [place] [address]Performed By: #### 63052-5, 2284-8, 2-9, 6-4 #### [facility] CLIA [id number] [address] [place] [address] [place] AMERICAIron/TIBC [Molar ratio]17.6 %Wzafjb57.0-57.0[facility] on above:Order Comment: Specimen Type: BLOOD SPECIMEN Ordering Facility: [facility] Address: [address] [place], [place] [address]Performed By: #### 40691-6, 2284-8, 2131-9, 6-4 #### [facility] CLIA [id number] [address] [place] [address] [place] AMERICAIron binding capacity [Mass/volume] in Serum or PlasmaOrdered By: Valentin Leonard on 85-57-5591Ebjl binding capacity [Mass/Vol]255 ug/aM991-747XpzmlcmynTrumbull Regional Medical CenterIron saturation [Mass Fraction] in Serum or PlasmaOrdered By: Valentin Leonard on 17-27-2429Zjrf saturation [Mass fraction]17.6 %15.0-57.0[facility] CenterLaboratory - Chemistry and Chemistry - challengeOrdered By: Valentin Abrebecca on 66-08-2951Burzkih [Mass/Vol]3.7 g/dLLow3.9-4.9[facility] CenterALP [Catalytic activity/Vol]45 U/D05-265LambisvjqTrumbull Regional Medical CenterALT [Catalytic activity/Vol]10 U/L7-38[facility] CenterAST [Catalytic activity/Vol]16 U/I18-77ZhrnaqlzcTrumbull Regional Medical CenterBilirubin [Mass/Vol]0.3 mg/dL0.2-1.3FUniversity Hospitals Conneaut Medical CenterCalcium [Mass/Vol]9.0 mg/dL8.5-10.2FUniversity Hospitals Conneaut Medical CenterChloride [Moles/Vol]101 mmol/L 98-107[facility] CenterCO2 [Moles/Vol]28 mmol/U21-20NryxhsqwzTrumbull Regional Medical CenterCreatinine [Mass/Vol]1.64 mg/dLHigh0.58-0.96[facility] CenterFerritin [Mass/Vol]174.0 ng/mL14.7-205.1FUniversity Hospitals Conneaut Medical CenterGlucose [Mass/Vol]103 mg/aRPuxr98-29CbwbsbflmTrumbull Regional Medical CenterComment on above:The [place] [employer] (ADA) provides guidance for cutoff [...] diabetes.Reference: Standardsof Medical Care in Diabetes 2016, [place] [employer]. Diabetes Care. 2016.39(Suppl 1).Iron [Mass/Vol]45 ug/nC89-546 [facility] CenterPotassium [Moles/Vol]4.7 mmol/L3.7-5.1FMetroHealth Main Campus Medical Centerodium [Moles/Vol]139 mmol/B851-525YrtkdxywdTrumbull Regional Medical CenterUrea nitrogen [Mass/Vol]32 mg/dLHigh7-21[facility] Medical CenterLaboratory - Chemistry and Chemistry - challengeOrdered By: Nathan Hathaway on 60-75-6853Jrjbnaktw (Vitamin B12) [Mass/Vol]1457 pg/oTYsjr576-7455FrhpkqoyyTrumbull Regional Medical CenterLaboratory - Hematology and Cell countsOrdered By: Valentin Leonard on 50-43-1788Ywuvzlpezfe (Bld) [#/Vol]0.16 10*3/uL<0.46[facility] Medical CenterImmature granulocytes (Bld) [#/Vol]0.03 10*3/uL<0.10 [facility] CenterImmature granulocytes/100 WBC (Bld)0.5 % [facility] CenterLeukocytes [#/volume] corrected for nucleated erythrocytes in Blood by Automated counOrdered By: Valentin Suarezankelizabeth on 07-15-2025 WBC corrected for nucl RBC Auto (Bld) [#/Vol]6.28 k/uL3.70-11.00[facility] Medical CenterLymphocytes Auto (Bld) [#/Vol]Ordered By: Valentin Abhyankar on 34-64-0458Vcekjljnbdj (Bld) [#/Vol]0.77 10*3/uLLow1.00-4.00[facility] CenterLymphocytes/100 WBC Auto (Bld)Ordered By: Valentin hyankar on 75-55-1703Ilukgxzqqwe/100 WBC (Bld)12.3 %[facility] MCH Auto (RBC) [Entitic mass]Ordered By: Vaelntin Fatihhyankar on 20-64-0503OHW (RBC) [Entitic mass]28.8 pg26.0-34.0[facility] Medical CenterMCHC Auto (RBC) [Mass/Vol]Ordered By: Valentin Faithhyankar on 00-30-3714UNPM (RBC) [Mass/Vol]32.2 g/dL30.5-36.0[facility] CenterMCV Auto (RBC) [Entitic vol] Ordered By: Valentin Suarezankelizabeth on 63-96-6308ELJ (RBC) [Entitic vol]89.3 fL 80.0-100.0[facility] Center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 ANALYSISon 86-30-4196MIP88 L265P MUTATION RESULTNormalCSuburban Community Hospital & Brentwood HospitalComment on above:Order Comment: Specimen Type: BLOOD SPECIMEN Ordering Facility: [facility] Address: [address] [place], [place] [address]Result Comment: 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 ANALYSIS Laboratory Accession Number: [id number] Sample Type: Peripheral Blood Result: 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 L265P is highly characteristic of [...] presence or absence of the L265P (c.794T>C, p.Cko047Ulr; g.16026014; ua785000086) variant (mutation) in MYD88 gene (NM_002468.4) using [...] MYD88 mutations in human lymphoma. Nature 2011. 470(5699):115-9. 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 Am J Clin Pathol. 2013. 140(3):387-94. 3) Obi SP, Spencer L, Brooks G, et al. MYD88 L265P somatic mutation in Waldenstrom's macroglobulinemia. N Engl J Med. 2012. 367(7)218-33. 4) Almonte JQ, Juan J YS, Ariel LL, Tanya K. Toll-like receptors and cancer: MYD88 mutation and inflammation. Front Immunol. 2014 May 28;367(5):1-10. 5) Gabriel X, Li W, Maykel Q, et al. MYD88 L265P Mutation in Lymphoid Malignancies. Cancer Res. 2018. 78(10):3340-92. Disclaimer: This test was developed and its performance characteristics determined by [facility]'s Pathology and Laboratory Medicine Department. It has not been cleared or approved by the FDA. [facility]'s Pathology and Laboratory Medicine Department is regulated under CLIA as certified to perform high-complexity testing. This test is used for clinical purposes. It should not be regarded as investigational or for research. Test performed at [facility], [address] [place] [address]. CLIA Number: [id number] Interpretation performed by Natalee Bolanos, PhD, [facility]LEY HOSPITALDPerformed By: #### 04191- 5 #### [facility] CLIA [id number] [address] [place] [address] [place] AMERICAMonocytes Auto (Bld) [#/Vol] Ordered By: Valentin Leonard on 79-63-0979Huhsulntn (Bld) [#/Vol]0.65 10*3/uL <0.87[facility] CenterMonocytes/100 WBC Auto (Bld)Ordered By: Valentin Leonard on 67-34-8805Ogygedruc/100 WBC (Bld)10.4 %[facility] Medical CenterNeutrophils Auto (Bld) [#/Vol]Ordered By: Valentin Abhyankar on 92-99-2236Fmykljzxooq (Bld) [#/Vol]4.62 10*3/uL1.45-7.50[facility] CenterNeutrophils/100 WBC Auto (Bld)Ordered By: Valentin Leonard on 03-39-0386Cqqqgsmayph/100 WBC (Bld)73.5 %[facility] CenterNo Panel InformationOrdered By: Valentin Leonard on 53-35-2878Fxmwmx86.5 ng/mL>4.7 [facility] CenterMYD88 L265P MutationSee commentTrumbull Regional Medical CenterComment on above: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 ANALYSISLaboratory Accession Number: [id number] Type: Peripheral BloodResult:MYD88 L265P (c.794T>C, p.Wpe266Ckr) detected with variant allelefraction (vaf) 0.98%.Interpr etation:The 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 This abnormality may also be found in diffuse large B- celllymphomas and in a small percentage of other small B-cell neoplasmsincluding chronic lymphocytic leukemia and marginal zone lymphomas.Clinical and pathologic correlation is suggested.Methodology:DNA extracted from the specimen is interrogated for the presence orabsence of the L265P (c.794T>C, p.Ozf683Ees; g.54904139; qq300779712)variant (mutation) in MYD88 gene (NM_002468.4) using droplet digitalpolymerase chain reaction (PCR). Droplet digital PCR includespartitioning of DNA into droplets, droplet independent PCR,interrogation using allele specific hydrolysis probes, and analysis ofdroplets using Poisson distribution to calculate the copy number ofMYD88 L265P and wild-type MYD88. The reference genome used ysZTOo10/hg38.Limitations:This test is designed to detect the L265P variant in the MYD88 gene.Uncommon variants or single nucleotide polymorphisms may affectbinding of probes or primers and may rarely result in false negative,false positive, or indeterminate results. Other variants in MYD88 willnot be identifiedby this test. The lower limit of detection of thisassay is approximately 0.5% variant allele fraction (vaf) for qqhAAY81 L265P variant. Although vaf is provided for reference, thisvalue should be interpreted with caution as this test is intended forqualitative purposes and is not validated as a quantitative test. GmpWLM86 L265P result cannot be used on a standalone basis for diagnosisof lymphoplasmacytic lymphoma and needs to be considered in thecontext of clinical and morphologic presentation.References:1) Lundy VN, Cristhian RM, Hannah R, et al. Oncogenically active PMN50atykcisja in human lymphoma. Nature 2011. 470(7897):115-9.2) Joya SL, Anai WagonerJ, DW, James L, Mikey JR, Hsi ED: HTH55T561J somatic mutation: its usefulness in the differential diagnosisof bone marrow involvement by B-cell lymphoproliferative disorders. AmJ Clin Pathol. 2013. 140(3):387-94.3) Obi SP, Spencer L, Brooks G,et al. 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 N Engl J Med. 2012. 367(3)746-33.4) Gage JQ, Juan J YS, Ariel LL, Horikawa K. Toll-like receptorsand cancer: MYD88 mutation and inflammation. Front Immunol. 2014 ;367(5):1-10.5) Nery X, Francy W, Maykel Q, et al. 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 Cancer Res. 2018. 78(10):2420-34.Disclaimer:This test was developed and its performance characteristics determinedby [facility]'s Pathology and Laboratory Medicine Department. Ithas not been cleared or approved by the FDA. [facility] is regulated under CLIAas certified to perform high-complexity testing. Thistest is used forclinical purposes. It should not be regarded as investigational or forresearch.Testperformed at [facility], [address] [place], [place] [address] [address]. CLIA Number: [id number] performed by Natalee Bolanos, PhD, [facility] HOSPITALDNucleated RBC Auto (Bld) [#/Vol]Ordered By: Valentin Leonard on 03-51-3103Ppgqgphcl RBC (Bld) [#/Vol]10*3/uL<0.01[facility] CenterNucleated erythrocytes [Presence] in Blood by Automated count Ordered By: Valentin Leonard on 84-39-1195Juavystms RBC Auto Ql (Bld)0.0 /100{WBC}[facility] Medical CenterPlatelet mean volume Auto (Bld) [Entitic vol]Ordered By: Valentin Leonard on 25-87-6880Htuaqara mean volume (Bld) [Entitic vol]9.9 fL9.0-12.7FUniversity Hospitals Conneaut Medical CenterPlatelets Auto (Bld) [#/Vol]Ordered By: Valentin Leonard on 05-26-7714Ybiirkami (Bld) [#/Vol]295 10*3/tR814-012DeghqitibTrumbull Regional Medical CenterProtein [Mass/volume] in Serum or PlasmaOrdered By: Valentin Leonard on 99-87-6088Udvaimb [Mass/Vol]5.9 g/dLLow 6.3-8.0[facility] CenterRBC Auto (Bld) [#/Vol]Ordered By: Valentin Leonard on 61-50-2154INZ (Bld) [#/Vol]3.09 10*6/uLLow3.90-5.20[facility] Health Springfielderum or plasma anion gap determinationOrdered By: Valentin Leonard on 88-53-3600Rfueu gap [Moles/Vol]10 mmol/L8-15[facility]tering Health Springfielderum or plasma erythropoietin (EPO) measurement (units/volume) Ordered By: Valentin Leonard on 61-86-6773Gdweycmvgcekkw (EPO) Qn26.4 mIU/mLHigh 2.6-18.5FUniversity Hospitals Conneaut Medical CenterVit B12 SerPl-mCncon 07-15-2025 Cobalamin (Vitamin B12) [Mass/Vol]1457 pg/fOPhji464-2437DpgdyfgqgSuburban Community Hospital & Brentwood HospitalComascension borg[facility] on above:Order Comment: Specimen Type: BLOOD SPECIMEN Ordering Facility: [facility] Address: [address] [place], [place] [address]Performed By: #### 06526-8, 2284-8, 2132-9, 2276-4 #### [facility] CLIA [id number] [address] [place] [address] [place] OF AMERICACNPNon [id number] Telephone (NCCAP) LASHAUN JOAQUIN ([id number]) 1940 F Date Time Provider Department 07/10/25 [...] Hathaway's office Please return the call at [phone] KERRY Menendez Felicia, RN 07/10/2025 12:07 PM [...] (None) Encounter Status:Closed by YOLANDA COBIAN on 07/10/25NoalCSuburban Community Hospital & Brentwood HospitalAlbumin [Mass/volume] in Serum or PlasmaOrdered By: Nathan Hathaway on 73-42-5004Cuulvsn [Mass/Vol]3.33 g/dLLow3.43-5.41[facility] W Auto Differential panel (Bld)on 53-05-7703Atzrsojgc (Bld) [#/Vol] 0.05 10*3/uLNormal<0.11CC[facility] on above:Order Comment: Specimen Type: BLOOD SPECIMEN Ordering Facility: [facility] Address: [address] [place], [place] [address]Performed By: #### 03998-8 #### [facility] CLIA [id number] [address] [place] [address] [place] AMERICABasophils/100 WBC (Bld)0.9 % [facility] on above:Order Comment: Specimen Type: BLOOD SPECIMEN Ordering Facility: [facility] Address: [address] [place], [place] [address]Performed By: #### 41942-1 #### [facility] CLIA [id number] [address] [place] [address] [place] AMERICADifferential cell count method Nom (Bld)AutoNormalCCleveland Clinic Akron General on above:Order Comment: Specimen Type: BLOOD SPECIMEN Ordering Facility: [facility] Address: [address] [place], [place] [address]Performed By: #### 62180-0 #### [facility] CLIA [id number] [address] [place] [address] [place] AMERICAEosinophils (Bld) [#/Vol] 0.18 10*3/uLNormal<0.46[facility] on above:Order Comment: Specimen Type: BLOOD SPECIMEN Ordering Facility: [facility] Address: [address] [place], [place] [address]Performed By: #### 84033-0 #### [facility] CLIA [id number] [address] [place] [address] [place] AMERICAEosinophils/100 WBC (Bld)3.3 %NormalCleveland Clinic Lutheran Hospital on above:Order Comment: Specimen Type: BLOOD SPECIMEN Ordering Facility: [facility] Address: [address] [place], [place] [address]Performed By: #### 52082-9 #### [facility] [place] [id number] [address] [place] [address] [place] AMERICAErythrocyte distribution width (RBC) [Ratio]13.5 %Bafhpc32.5-15.0[facility] on above:Order Comment: Specimen Type: BLOOD SPECIMEN Ordering Facility: [facility] Address: [address] [place], [place] [address]Performed By: #### 82318-3 #### [facility] IA [id number] [address] [place] [address] [place] AMERICAHematocrit (Bld) [Volume fraction]27.8 %Low36.0-46.0[facility] on above:Order Comment: Specimen Type: BLOOD SPECIMEN Ordering Facility: [facility] Address: [address] [place], [place] [address]Performed By: #### 73081-3 #### [facility] IA [id number] [address] [place] [address] [place] AMERICAHemoglobin (Bld) [Mass/Vol] 9.0 g/dLLow11.5-15.5CC[facility] Clinic [facility] on above:Order Comment: Specimen Type: BLOOD SPECIMEN Ordering Facility: [facility] Address: [address] [place], [place] [address]Performed By: #### 14687-4 #### [facility] IA [id number] [address] [place] [address] [place] AMERICAImmature granulocytes (Bld) [#/Vol]0.03 10*3/uLNormal<0.10[facility] on above:Order Comment: Specimen Type: BLOOD SPECIMEN Ordering Facility: [facility] Address: [address] [place], [place] [address]Performed By: #### 03740-2 #### [facility] IA [id number] [address] [place] [address] [place] AMERICAImmature granulocytes/100 WBC (Bld)0.5 %NormalCleveland Clinic Lutheran Hospital on above:Order Comment: Specimen Type: BLOOD SPECIMEN Ordering Facility: [facility] Address: [address] [place], [place] [address]Performed By: #### 83420-0 #### [facility] CLIA [id number] [address] [place] [address] [place] AMERICALymphocytes (Bld) [#/Vol] 0.87 10*3/uLLow1.00-4.00[facility] on above:Order Comment: Specimen Type: BLOOD SPECIMEN Ordering Facility: [facility] Address: [address] [place], [place] [address]Performed By: #### 59768-2 #### [facility] CLIA [id number] [address] [place] [address] STATES OF AMERICALymphocytes/100 WBC (Bld) 15.9 %NormalCleveland Clinic Lutheran Hospital on above:Order Comment: Specimen Type: BLOOD SPECIMEN Ordering Facility: [facility] Address: [address] [place], [place] [address]Performed By: #### 16290-5 #### [facility] CLIA [id number] [address] [place] [address] OF [facility] (RBC) [Entitic mass]28.8 zbMhsmmi67.0-34.0[facility] on above:Order Comment: Specimen Type: BLOOD SPECIMEN Ordering Facility: [facility] Address: [address] [place], [place] [address]Performed By: #### 84285-3 #### [facility] CLIA [id number] [address] [place] [address] (RBC) [Mass/Vol]32.4 g/lUYifyor85.5-36.0[facility] on above:Order Comment: Specimen Type: BLOOD SPECIMEN Ordering Facility: [facility] Address: [address] [place], [place] [address]Performed By: #### 13222-4 #### [facility] CLIA [id number] [address] [place] [address] [place] AMERICAMCV (RBC) [Entitic vol]89.1 uAKouqlt66.0-100.0[facility] on above:Order Comment: Specimen Type: BLOOD SPECIMEN Ordering Facility: [facility] Address: [address] [place], [place] [address]Performed By: #### 75102-0 #### [facility] IA [id number] [address] [place] [address] [place] AMERICAMonocytes (Bld) [#/Vol]0.61 10*3/uLNormal<0.87[facility] on above:Order Comment: Specimen Type: BLOOD SPECIMEN Ordering Facility: [facility] Address: [address] [place], [place] [address]Performed By: #### 57002-5 #### [facility] CLIA [id number] [address] [place] [address] [place] AMERICAMonocytes/100 WBC (Bld)11.2 %NormalCleveland Clinic Lutheran Hospital on above:Order Comment: Specimen Type: BLOOD SPECIMEN Ordering Facility: [facility] Address: [address] [place], [place] [address]Performed By: #### 59506-1 #### [facility] CLIA [id number] [address] [place], [place] [address] [place] AMERICANeutrophils (Bld) [#/Vol] 3.72 10*3/uLNormal1.45-7.50[facility] on above:Order Comment: Specimen Type: BLOOD SPECIMEN Ordering Facility: [facility] Address: [address] [place], [place] [address]Performed By: #### 32984-2 #### [facility] CLIA [id number] [address] [place] [address] [place] AMERICANeutrophils/100 WBC (Bld) 68.2 %NormalCleveland Clinic Lutheran Hospital on above:Order Comment: Specimen Type: BLOOD SPECIMEN Ordering Facility: [facility] Address: [address] [place], [place] [address]Performed By: #### 16828-6 #### [facility] CLIA [id number] [address] [place] [address] [place] AMERICANucleated RBC (Bld) [#/Vol] 10*3/uLNormal<0.01[facility] on above:Order Comment: Specimen Type: BLOOD SPECIMEN Ordering Facility: [facility] Address: [address] [place], [place] [address]Performed By: #### 52557-4 #### [facility] CLIA [id number] [address] [place] [address] [place] AMERICANucleated RBC/100 WBC (Bld) [Ratio]0.0 /100 WBCNormalCCleveland Clinic Akron General on above:Order Comment: Specimen Type: BLOOD SPECIMEN Ordering Facility: [facility] Address: [address] [place], [place] [address]Performed By: #### 10338-4 #### [facility] CLIA [id number] [address] [place] [address] [place] AMERICAPlatelet mean volume (Bld) [Entitic vol]9.5 fLNormal9.0-12.7CC[facility] Clinic [facility] on above: Order Comment: Specimen Type: BLOOD SPECIMEN Ordering Facility: [facility] Address: [address] [place], [place] [address]Performed By: #### 43606-9 #### [facility] CLIA [id number] [address] [place] [address] [place] AMERICAPlatelets (Bld) [#/Vol]275 10*3/eKZtobca082-141ZjqqqtylgCleveland Clinic Luther[facility] Hospital on above:Order Comment: Specimen Type: BLOOD SPECIMEN Ordering Facility: [facility] Address: [address] [place], [place] [address]Performed By: #### 59317-1 #### [facility] CLIA [id number] [address] [place], [place] [address]RB (Bld) [#/Vol]3.12 10*6/uLLow3.90-5.20[facility] on above:Order Comment: Specimen Type: BLOOD SPECIMEN Ordering Facility: [facility] Address: [address] [place], [place] [address]Performed By: #### 86246-1 #### [facility] CLIA [id number] [address] [place], [place] [address]W (Bld) [#/Vol]5.46 10*3/uLNormal3.70-11.00[facility] on above:Order Comment: Specimen Type: BLOOD SPECIMEN Ordering Facility: [facility] Address: [address] [place], [place] [address]Performed By: #### 65525-4 #### [facility] CLIA [id number] [address] [place], [place] [address]CNOVSPon 89-23-6920FEAEVM Visit (SP) Office (HEMASA) LASHAUN JOAQUIN ([id number]) 1940 F Date Time Provider Department 07/08/25 10:00 AM PAOLO CASILLAS During your visit today, we recorded the following information about you: Temperature Pulse Respiration Blood pressure 96.8 degrees 66/minute 18/minute 178/68 Weight Height 91.8 kg 1.664 m Paolo Casillas APRN.CREATIVE SERVICES WRITER 07/10/2025 6:42 PM Signed PATIENT NAME: Lashaun [...] HISTORY: FAMILY HISTORY Proble (more content not included)...NormalSt. Vincent HospitalPNon 71-51-0000RVNHUazcbgmhd ([facility]) LASHAUN JOAQUIN ([id number]) 1940 F Date Time Provider Department 07/08/25 PAOLO CASILLAS During your visit today, we recorded the following information about you: Bessie SabinoKayla 07/08/2025 11:24 AM Signed Please call Her daughter Marianna with today's lab results. [phone] Yolanda Cobian RN 07/10/2025 9:17 AM Signed [...] (None) Encounter Status:Closed by YOLANDA COBIAN on 07/10/25NormalCSuburban Community Hospital & Brentwood HospitalComprehensive metabolic 2000 panelon 58-20-7066Chbwddb [Mass/Vol]3.6 g/dLLow3.9-4.9CC[facility] on above:Order Comment: Specimen Type: BLOOD SPECIMEN Ordering Facility: [facility] Address: [address] [place], [place] [address]Performed By: #### 77569-4 #### [facility] CLIA [id number] [address] [place] [address] [place] AMERICAALP [Catalytic activity/Vol] 48 U/MFakwlz17-111LwzxovcwoCleveland Clinic [facility] Hospital on above:Order Comment: Specimen Type: BLOOD SPECIMEN Ordering Facility: [facility] Address: [address] [place], [place] [address]Performed By: #### 59634-9 #### [facility] CLIA [id number] [address] [place] [address] [place] AMERICAALT [Catalytic activity/Vol] 13 U/LNormal7-38[facility] on above:Order Comment: Specimen Type: BLOOD SPECIMEN Ordering Facility: [facility] Address: [address] [place], [place] [address]Performed By: #### 04606-2 #### [facility] CLIA [id number] [address] [place], [place] [address] [place] AMERICAAnion gap [Moles/Vol]11 mmol/LNormal8-15[facility] on above:Order Comment: Specimen Type: BLOOD SPECIMEN Ordering Facility: [facility] Address: [address] [place], [place] [address]Performed By: #### 43342-1 #### [facility] CLIA [id number] [address] [place] [address] [place] AMERICAAST [Catalytic activity/Vol] 22 U/JBicncj34-81FxirtcoqjCleveland Clinic Luther[facility] Hospital on above:Order Comment: Specimen Type: BLOOD SPECIMEN Ordering Facility: [facility] Address: [address] [place], [place] [address]Performed By: #### 89022-4 #### [facility] CLIA [id number] [address] [place] [address] [place] AMERICABilirubin [Mass/Vol]0.3 mg/dLNormal0.2-1.3CC[facility] on above:Order Comment: Specimen Type: BLOOD SPECIMEN Ordering Facility: [facility] Address: [address] [place], [place] [address]Performed By: #### 35658-6 #### [facility] CLIA [id number] [address] [place] [address] [place] AMERICACalcium [Mass/Vol]8.9 mg/dL Normal8.5-10.2CC[facility] on above:Order Comment: Specimen Type: BLOOD SPECIMEN Ordering Facility: [facility] Address: [address] [place], [place] [address]Performed By: #### 06225-8 #### [facility] CLIA [id number] [address] [place] [address] [place] AMERICAChloride [Moles/Vol]106 mmol/PLymmyd27-128XpvcksyimCleveland Clinic Luther[facility] Hospital on above:Order Comment: Specimen Type: BLOOD SPECIMEN Ordering Facility: [facility] Address: [address] [place], [place] [address]Performed By: #### 92778-3 #### [facility] CLIA [id number] [address] [place] [address] [place] AMERICACO2 [Moles/Vol]24 mmol/L Zyiwwn76-82WxvaaanfxCleveland Clinic Luther[facility] Hospital on above:Order Comment: Specimen Type: BLOOD SPECIMEN Ordering Facility: [facility] Address: [address] [place], [place] [address]Performed By: #### 29988-6 #### [facility] CLIA [id number] [address] [place] [address] [place] AMERICACreatinine [Mass/Vol]1.65 mg/dLHigh0.58-0.96[facility] on above:Order Comment: Specimen Type: BLOOD SPECIMEN Ordering Facility: [facility] Address: [address] [place], [place] [address]Performed By: #### 77915-7 #### [facility] CLIA [id number] [address] [place] [address] [place] AMERICAeGFRcr SerPlBld CKD-EPI 2020 31 mL/min/1.73m???Low>=60[facility] on above:Order Comment: Specimen Type: BLOOD SPECIMEN [facility]ing [facility] Address: [address] [place], [place] [address]Result Comment: Estimated Glomerular Filtration Rate (eGFR) is [...] not accurately reflect actual GFR.Performed By: #### 64011-9 #### [facility] [place] [id number] [address] [place] [address] [place] AMERICAGlucose [Mass/Vol]100 mg/dL Pmvq07-06EwngpkzylCleveland Clinic [facility] on above:Order Comment: Specimen Type: BLOOD SPECIMEN Ordering Facility: [facility] Address: [address] [place], [place] [address]Result Comment: The [place] Diabetes Association (ADA) provides guidance for cutoff [...] Standards of Medical Care in Diabetes 2016, [place] [employer]. Diabetes Care. 2016.39(Suppl 1).Performed By: #### 33408-3 #### [facility] [place] [id number] [address] [place] [address] [place] AMERICAPotassium [Moles/Vol]5.3 mmol/LHigh3.7-5.1CC[facility] on above:Order Comment: Specimen Type: BLOOD SPECIMEN Ordering Facility: [facility] Address: [address] [place], [place] [address]Performed By: #### 39718-8 #### [facility] [place] [id number] [address] [place] [address] [place] AMERICAProtein [Mass/Vol]5.8 g/dL Low6.3-8.0[facility] on above:Order Comment: Specimen Type: BLOOD SPECIMEN Ordering Facility: [facility] Address: [address] [place], [place] [address]Performed By: #### 29747-9 #### [facility] CLIA [id number] [address] [place] [address] [place] AMERICASodium [Moles/Vol]141 mmol/L Ucbiaf553-298HclqvxsnoCleveland Clinic Lutheran Hospital on above:Order Comment: Specimen Type: BLOOD SPECIMEN Ordering Facility: [facility] Address: [address] [place], [place] [address]Performed By: #### 86804-4 #### [facility] CLIA [id number] [address] [place] [address] [place] AMERICAUrea nitrogen [Mass/Vol]27 mg/dLHigh7-21[facility] on above:Order Comment: Specimen Type: BLOOD SPECIMEN Ordering Facility: [facility] Address: [address] [place], [place] [address]Performed By: #### 45496-9 #### [facility] CLIA [id number] [address] [place] [address] [place] AMERICAGlomerular filtration rate [Volume Rate/Area] in Serum, Plasma or Blood by CreatinineOrdered By: Nathan Hathaway on 63-04-9952Xthizgjkac filtration rate [Volume Rate/Area] in Serum, Plasma or Blood by Hewsdchdoe09 mL/min/1.73m???Low>=60[facility] Comment on above:Estimated Glomerular Filtration Rate (eGFR) [...] not accurately reflect actual GFR.IMMUNOFIXATION SCREEN, SERUMon 54-13-4413AFXZIAOFWDRZFQ (MPA)Poorly defined region of restricted mobility in [...] further for monoclonal gammopathy. Clinical correlation is necessary.NormalCleveland Clinic Lutheran Hospital on above:Order Comment: Specimen Type: BLOOD SPECIMEN Ordering Facility: [facility] Address: [address] [place], [place] [address]Performed By: #### 98588-0 #### [facility] CLIA [id number] [address] [place] [address] [place] AMERICAMPA RESULTA poorly defined region of restricted mobility is present that may represent an M protein. AbnormalNo M protein is identified.[facility] on above: Order Comment: Specimen Type: BLOOD SPECIMEN Ordering Facility: [facility] Address: [address] [place], [place] [address]Performed By: #### 46492-4 #### [facility] CLIA [id number] [address] [place] [address] [place] OF AMERICASTAFF REVIEW ([facility])Reviewed by Dr. Jennifer David [facility] on above:Order Comment: Specimen Type: BLOOD SPECIMEN Ordering Facility: [facility] Address: [address] [place], [place] [address]Performed By: #### 39294-2 #### [facility] CLIA [id number] [address] [place] [address] [place] OF AMERICAIMMUNOGLOBULINS,IGG,IGA,IGM on 08-18-3092QaN [Mass/Vol]64 mg/hHEaf64-069KkvymsaftCleveland Clinic Lutheran Hospital on above:Order Comment: Specimen Type: BLOOD SPECIMEN Ordering Facility: [facility] Address: [address] [place], [place] [address]Performed By: #### SERIMM #### [facility] CLIA [id number] [address] [place] [address] [place] AMERICAIgG [Mass/Vol]280 mg/dLLow 700-1600[facility] on above:Order Comment: Specimen Type: BLOOD SPECIMEN Ordering Facility: [facility] Address: [address] [place], [place] [address]Performed By: #### SERIMM #### [facility] CLIA [id number] [address] [place] [address] [place] AMERICAIgM [Mass/Vol]317 mg/dLHigh 40-230[facility] HospitalComment on above:Order Comment: Specimen Type: BLOOD SPECIMEN Ordering Facility: [facility] Address: [address] [place], [place] [address]Performed By: #### SERIMM #### [facility] CLIA [id number] [address] [place] [address] [place] AMERICAIgA [Mass/volume] in Serum or PlasmaOrdered By: Fanny Bedoya on 23-95-6458FiM [Mass/Vol]64 mg/oWGxr08-542 [facility] CenterIgG [Mass/volume] in Serum or PlasmaOrdered By: Fanny Bedoya on 91-55-8650VfD [Mass/Vol]280 mg/vTQrv873-4450RlsrqacfpTrumbull Regional Medical CenterIgM [Mass/volume] in Serum or PlasmaOrdered By: Fanny Bedoya on 43-61-0438NeP [Mass/Vol]317 mg/bSYblc60-879FsnwmjgepTrumbull Regional Medical Center Immunoglobulin light chains.kappa.free [Mass/volume] in SerumOrdered By: Nathan Hathaway on 26-32-7888Lmrgvlljwrengw light chains.kappa.free (S) [Mass/Vol] 300.9 mg/LHigh3.3-19.4FUniversity Hospitals Conneaut Medical CenterComment on above:Rarely, increased serum free light chains levels may not be detected or accurately quantified due to prozone phenomenon or in high viscosity samples using this immunoturbidimetric assay. Correlation with other laboratory results and clinical findings is recommended. The [place] Free Light Chain was performed using the Binding Site Optilite immunoturbidimetric method. Result obtained with different assay methods or kits cannot be used interchangeably.Immunoglobulin light chains.kappa.free/Immunoglobulin light chains.lambda.free [MassOrdered By: Nathan Hathaway on 01-36-8005Wlxqnpjumyakkn light chains.kappa.free/Immunoglobulin light chains.lambda.free (S) [Mass ratio]12.64 High0.26-1.65[facility] CenterImmunoglobulin light chains.lambda.free [Mass/volume] in Serum or PlasmaOrdered By: Nathan Hathaway on 83-47-7246Budclxksvbhqyp light chains.lambda.free [Mass/Vol]23.8 mg/L5.7-26.3 [facility] CenterComment on above:Rarely, increased serum free light [...] methods or kits cannot be used interchangeably.KAPPA/BOWLES,FREE,SERon 03-10-1456Omjfwvgouasvyc light chains.kappa.free (S) [Mass/Vol]300.9 mg/LHigh3.3-19.4CSuburban Community Hospital & Brentwood HospitalComascension [facility]org[facility] on above:Order Comment: Specimen Type: BLOOD SPECIMEN Ordering Facility: [facility] Address: [address] [place], [place] [address]Result Comment: Rarely, increased serum free light chains levels may not be detected or accurately quantified due to prozone phenomenon or in high viscosity samples using this immunoturbidimetric assay. Correlation with other laboratory results and clinical findings is recommended. The [place] Free Light Chain was performed using the Binding Site Optilite immunoturbidimetric method. Result obtained with different assay methods or kits cannot be used interchangeably.Performed By: #### KLFRS #### [facility] CLIA [id number] [address] [place] [address] [place] AMERICAImmunoglobulin light chains.kappa/Immunoglobulin light chains.lambda (S) [Mass ratio]12.64High 0.26-1.65[facility] on above:Order Comment: Specimen Type: BLOOD SPECIMEN Ordering Facility: [facility] Address: [address] [place], [place] [address]Performed By: #### KLFRS #### [facility] CLIA [id number] [address] [place] [address] [place] AMERICAImmunoglobulin light chains.lambda.free [Mass/Vol]23.8 mg/LNormal5.7-26.3CSuburban Community Hospital & [facility] Comment on above:Order Comment: Specimen Type: BLOOD SPECIMEN Ordering Facility: [facility] Address: [address] [place], [place] [address]Result Comment: Rarely, increased serum free light chains [...] be used interchangeably.Performed By: #### KLFRS #### [facility] CLIA [id number] [address] [place] [address] [place] OF AMERICALaboratory - Chemistry and Chemistry - challengeOrdered By: Nathan Hathaway on 49-08-2696Bgxajzk [Mass/Vol] 3.6 g/dLLow3.9-4.9[facility] CenterALP [Catalytic activity/Vol] 48 U/S78-685AqthlixkiTrumbull Regional Medical CenterALT [Catalytic activity/Vol]13 U/L 7-38[facility] CenterAST [Catalytic activity/Vol]22 U/L13-35 [facility] CenterBilirubin [Mass/Vol]0.3 mg/dL0.2-1.3FUniversity Hospitals Conneaut Medical CenterCalcium [Mass/Vol]8.9 mg/dL8.5-10.2FUniversity Hospitals Conneaut Medical CenterChloride [Moles/Vol]106 mmol/I51-476KnfhuxunvTrumbull Regional Medical CenterCO2 [Moles/Vol]24 mmol/T91-62UqgqdmizdTrumbull Regional Medical CenterCreatinine [Mass/Vol]1.65 mg/dLHigh0.58-0.96[facility] CenterGlucose [Mass/Vol]100 mg/dVLsbd86-25BrgdgiouhTrumbull Regional Medical CenterComment on above: The [place] Diabetes Association (ADA) provides guidance for cutoff [...] diabetes.Reference: Standardsof Medical Care in Diabetes 2016, [place] Diabetes Association. Diabetes Care. 2016.39(Suppl 1).Potassium [Moles/Vol]5.3 mmol/LHigh3.7-5.1FUniversity Hospitals Conneaut Medical CenterProtein [Mass/Vol]0.00 g/dL<=0.00[facility] Sodium [Moles/Vol]141 mmol/Z571-166OrlgtyadfTrumbull Regional Medical CenterUrea nitrogen [Mass/Vol]27 mg/dLHigh7-21[facility] CenterNo Panel InformationOrdered By: Nathan Hathaway on 31-80-9260Ddgfqzygmhsxuv Interpretation [facility] CenterLeuk/Lymph Sign Pathologist (Misc)Reviewed by Dr. Jennifer David Peoples HospitalMiscellaneous Test 6See commentTrumbull Regional Medical CenterComment on above:Not Applicable. Miscellaneous Test CommentReviewed by Dr. Jennifer David Peoples HospitalProtein Electrophoresis InterpretTrumbull Regional Medical Center Protein Electrophoresis NoteNo definitive M protein is identified on protein electrophoresis.No definitive M protein is identified on protein electrophoresis.[facility] Springfielderum ImmunofixationAbnormalNo M protein is identified.[facility] CenterPROTEIN ELECTROPHORESIS SERUM (P)on 90-80-4800Aolyxcg [Mass/Vol]3.33 g/dLLow3.43-5.41[facility] HospitalComascension borgess-pipp hospital on above:Order Comment: Specimen Type: BLOOD SPECIMEN Ordering Facility: [facility] Address: [address] [place], [place] [address]Performed By: #### 83213-9 #### [facility] CLIA [id number] [address] [place] [address] [place] AMERICAAlpha 1 globulin Elph [Mass/Vol]0.42 g/dLNormal0.18-0.43[facility] on above: Order Comment: Specimen Type: BLOOD SPECIMEN Ordering Facility: [facility] Address: [address] [place], [place] [address]Performed By: #### 50064-2 #### [facility] CLIA [id number] [address] [place] [address] [place] AMERICAAlpha 2 globulin Elph [Mass/Vol]0.86 g/dLNormal0.42-0.98[facility] on above: Order Comment: Specimen Type: BLOOD SPECIMEN Ordering Facility: [facility] Address: [address] [place], [place] [address]Performed By: #### 74944-8 #### [facility] CLIA [id number] [address] [place] [address] [place] AMERICABeta globulin Elph [Mass/Vol]0.53 g/dLLow0.61-1.17[facility] on above:Order Comment: Specimen Type: BLOOD SPECIMEN Ordering Facility: [facility] Address: [address] [place], [place] [address]Performed By: #### 44792-6 #### [facility] CLIA [id number] [address] [place] [address] STATES OF AMERICAGamma globulin Elph [Mass/Vol]0.37 g/dLLow0.53-1.51[facility] on above:Order Comment: Specimen Type: BLOOD SPECIMEN Ordering Facility: [facility] Address: [address] [place], [place] [address]Performed By: #### 03658-1 #### [facility] CLIA [id number] [address] [place] [address] [place] AMERICAINTERPRETATION COMMENT FOR PROTEIN ELECTROPHORESISHypogammaglobulinemia is present, which can be seen in the setting of monoclonal gammopathy. If clinically indicated, monoclonal protein analysis and serum free light chain analysis are suggested to evaluate further for monoclonal gammopathy.NormalCleveland Clinic Lutheran Hospital on above:Order Comment: Specimen Type: BLOOD SPECIMEN Ordering Facility: [facility] Address: [address] [place], [place] [address]Performed By: #### 07095-7 #### [facility] CLIA [id number] [address] [place] [address] [place] AMERICAM-PROTEIN LOCATIONNormal [facility] on above:Order Comment: Specimen Type: BLOOD SPECIMEN Ordering Facility: [facility] Address: [address] [place], [place] [address]Result Comment: Not Applicable. Performed By: #### 35475-7 #### [facility] CLIA [id number] [address] [place] [address] [place] AMERICAProtein Fractions [Interp]No definitive M protein is identified on protein electrophoresis.NormalNo definitive M protein is identified on protein electrophoresis.[facility] on above:Order Comment: Specimen Type: BLOOD SPECIMEN Ordering Facility: [facility] Address: [address] [place], [place] [address]Performed By: #### 13290-0 #### [facility] CLIA [id number] [address] [place] [address] [place] AMERICAProtein.monoclonal Elph [Mass/Vol]0.00 g/dLNormal<=0.00[facility] on above:Order Comment: Specimen Type: BLOOD SPECIMEN Ordering Facility: [facility] Address: [address] [place], [place] [address]Performed By: #### 85890-5 #### [facility] CLIA [id number] [address] [place] [address] [place] OF AMERICASPE STAFF REVIEWReviewed by Dr. Jennifer David MDNoalCCleveland Clinic Akron General on above:Order Comment: Specimen Type: BLOOD SPECIMEN Ordering Facility: [facility] Address: [address] [place], [place] [address]Performed By: #### 45364-2 #### [facility] CLIA [id number] [address] [place] [address] [place] AMERICAProt SerPl-mCncon 07-08-2025 Protein [Mass/Vol]5.5 g/dLLow6.3-8.0[facility] HospitalComment on above: Order Comment: Specimen Type: BLOOD SPECIMEN Ordering Facility: [facility] Address: [address] [place], [place] [address]Performed By: #### 2885-2 #### [facility] CLIA [id number] [address] [place] [address] [place] AMERICAProtein [Mass/volume] in Serum or PlasmaOrdered By: Fanny Bedoya on 83-32-7776Jiybrer [Mass/Vol]5.5 g/dL Low6.3-8.0[facility] Health Springfielderum or plasma alpha 1 globulin measurement by electrophoresis (mass/volume)Ordered By: Nathan Hathaway on 37-24-0335Foupn 1 globulin Elph [Mass/Vol]0.42 g/dL0.18-0.43[facility] Health Springfielderum or plasma alpha 2 globulin measurement by electrophoresis (mass/volume)Ordered By: Nathan Hathaway on 17-48-7835Azmpj 2 globulin Elph [Mass/Vol]0.86 g/dL0.42-0.98[facility] Springfielderum or plasma anion gap determinationOrdered By: Nathan Hathaway on 63-58-0705Kjowb gap [Moles/Vol]11 mmol/L8-15[facility] Springfielderum or plasma beta globulin measurement by electrophoresis (mass/volume)Ordered By: Nathan Hathaway on 24-37-9873Ydhh globulin Elph [Mass/Vol]0.53 g/dLLow0.61-1.17[facility] Springfielderum or plasma gamma globulin measurement by electrophoresis (mass/volume)Ordered By: Nathan Hathaway on 83-32-4734Uwsqw globulin Elph [Mass/Vol]0.37 g/dLLow0.53-1.51[facility] CNPNon 35-28-7016WMBVUpoonlspt (HEMASA) LASHAUN JOAQUIN ([id number]) 1940 F Date Time Provider Department 07/06/25 [...] Date Reviewed: 11/07/2023 Reviewed by: Paolo Casillas APRN.CREATIVE SERVICES WRITER - Fully Assessed Reason for Visit: Lab Orders [1688] Cmt: nt Primary Visit Diagnosis:Abnormal SPEP [R77.8] Order(s):COMPLETE BLOOD COUNT AND DIFFERENTIAL [SQCBCDIF] Order #: [id number] FUTURE COMPREHENSIVE METABOLIC PANEL [SQCMP] Order #: [id number] FUTURE PROTEIN ELECTROPHORESIS SERUM W/INTERP [SQSEPG] Order #: [id number] FUTURE MONOCLONAL PROTEIN, SERUM (BLOOD) [SQSERMPA] Order #: [id number] FUTURE Prescriptions as of 07/06/2025 - carvedilol [...] (None) Encounter Status:Closed by FANNY BEDOYA on 07/06/25NoWyandot Memorial HospitalMicroalbumin [Mass/volume] in UrineOrdered By: Nathan Hathaway on 78-50-5609Czpujep DL <= 20 mg/L (U) [Mass/Vol]20.1 mg/dL<=30.0[facility] CenterNo Panel InformationOrdered By: Nathan Hathaway on 54-00-7907Ocwfc Random Pbweebaqfe86.52 mg/dL20.00-300.00[facility] CenterUrine microalbumin/creatinine mass ratioOrdered By: Nathan Hathaway on 06-24-2025 Albumin/Creatinine DL <= 20 mg/L (U) [Mass ratio]237.8 mg/gHigh0.0-29.9[facility] CenterComment on above:NO MICROALBUMINURIA 0-29 MG/GCLINICAL MICROALBUMINURIA 30-300 MG/GMACROALBUMINURIA >300 MG/GAlbumin [Mass/volume] in Serum or PlasmaOrdered By: Nathan Hathaway on 43-03-2423Mcmdlgg [Mass/Vol]3.2 g/dL 2.9-4.4FUniversity Hospitals Conneaut Medical CenterBasophils Auto (Bld) [#/Vol]Ordered By: Nathan Hathaway on 51-39-1675Slofgiwor (Bld) [#/Vol]0.0 10 3/uL0.0-0.1FUniversity Hospitals Conneaut Medical CenterBasophils/100 WBC Auto (Bld)Ordered By: Nathan Hathaway on 21-85-0656Wlvtywtei/100 WBC (Bld)0.7 %0.2-2.0[facility] Cholesterol in LDL Calc [Mass/Vol]Ordered By: Nathan Hathaway on 06-23-2025 Cholesterol in LDL [Mass/Vol]60.2 mg/dLTrumbull Regional Medical CenterComment on above:<100 mg/dl NRIEOKB127-020 mg/dl NEAR OR ABOVE YRERIRU110-846 mg/dl BORDERLINE GRFY193-802 mg/dl HIGH>190 mg/dl VERY HIGHCholesterol in VLDL Calc [Mass/Vol]Ordered By: Nathan Hathaway on 92-50-4765Cefyhcssnws in VLDL [Mass/Vol] 17.8 mg/dLTrumbull Regional Medical CenterEosinophils/100 WBC Auto (Bld)Ordered By: Nathan Hathaway on 90-00-4367Bhcnixumdau/100 WBC (Bld)2.7 %0.9-7.0[facility] Medical CenterErythrocyte distribution width Auto (RBC) [Ratio]Ordered By: Nathan Hathaway on 81-70-8886Furhgthhnzu distribution width (RBC) [Ratio]13.8 %11.0-15.0[facility] Medical CenterGlobulin Calc (S) [Mass/Vol]Ordered By: Nathan Hathaway on 68-87-8717Udkqboqf (S) [Mass/Vol]3.3 g/dLTrumbull Regional Medical CenterGlomerular filtration rate (GFR) estimation in non- AmericanOrdered By: Nathan Hathaway on 64-95-1683ZZZ/1.73 sq M.predicted among non-blacks MDRD (S/P/Bld) [Vol rate/Area]35 mL/min/{1.73_m2}Low>=60 mL/min/1.73m 2FUniversity Hospitals Conneaut Medical CenterHematocrit Auto (Bld) [Volume fraction]Ordered By: Nathan Hathaway on 66-32-1052Ychbjakwqw (Bld) [Volume fraction]28.3 %Low 36.0-48.0[facility] CenterHemoglobin [Mass/volume] in Blood Ordered By: Nathan Hathaway on 54-43-5469Qjwyyksxft (Bld) [Mass/Vol]9.3 g/dLLow 12.0-16.0[facility] Medical CenterIgA [Mass/volume] in Serum or Plasma Ordered By: Nathan Hathaway on 54-15-2586MmY [Mass/Vol]62 mg/yBZfijxqdt14-378 [facility] CenterIgG [Mass/volume] in Serum or PlasmaOrdered By: Nathan Hathaway on 87-88-6942WmM [Mass/Vol]330 mg/mHXeaomelr931-2923IamapcsmgTrumbull Regional Medical CenterIgM [Mass/volume] in Serum or PlasmaOrdered By: Nathan Hathaway on 80-61-1132VmC [Mass/Vol]325 mg/kCUwlhvojc37-384AghyrxsmtTrumbull Regional Medical CenterImmunoglobulin light chains.kappa.free [Mass/volume] in Serum Ordered By: Nathan Hathaway on 63-02-6603Rsceqgnwruqegv light chains.kappa.free (S) [Mass/Vol]224.6 mg/LAbnormal3.3-19.4FUniversity Hospitals Conneaut Medical Center Immunoglobulin light chains.kappa.free/Immunoglobulin light chains.lambda.free [MassOrdered By: Nathan Hathaway on 76-82-6043Avasufrybkprpz light chains.kappa.free/Immunoglobulin light chains.lambda.free (S) [Mass ratio]10.59 Abnormal0.26-1.65[facility] Medical CenterComment on above:Performed at: [address] [id number] Director: Carlos Witt PhD, Phone: [phone] light chains.lambda.free [Mass/volume] in Serum or PlasmaOrdered By: Nathan Hathaway on 06-23-2025 Immunoglobulin light chains.lambda.free [Mass/Vol]21.2 mg/L5.7-26.3FUniversity Hospitals Conneaut Medical CenterIron binding capacity [Mass/volume] in Serum or Plasma Ordered By: Nathan Hathaway on 37-79-6571Xepc binding capacity [Mass/Vol]245.0 ug/oNZaz043.0-450.0[facility] CenterIron saturation [Mass Fraction] in Serum or PlasmaOrdered By: Nathan Hathaway on 30-01-9766Tsvl saturation [Mass fraction]14.3 %[facility] CenterLaboratory - Chemistry and Chemistry - challengeOrdered By: Nathan Hathaway on 16-16-7106UNX [Catalytic activity/Vol]47 U/U08-813ZujsmxermTrumbull Regional Medical CenterALT [Catalytic activity/Vol]18 U/Y49-26IlfdphoulTrumbull Regional Medical CenterAST [Catalytic activity/Vol]18 U/M97-45HhmnhooabTrumbull Regional Medical CenterBilirubin [Mass/Vol]0.5 mg/dL0.2-1.0[facility] CenterCalcium [Mass/Vol]8.9 mg/dL8.5-10.1FUniversity Hospitals Conneaut Medical CenterChloride [Moles/Vol]104 mmol/L 98-107[facility] CenterCholesterol [Mass/Vol]123 mg/dL<=200 [facility] CenterCholesterol in HDL [Mass/Vol]45 mg/dL40-60 [facility] CenterComment on above:> or =60 mg/dl - LOW CARDIOVASCULAR RISK<40 mg/dl - HIGH CARDIOVASCULAR RISKCO2 [Moles/Vol]30.2 mmol/L21.0-32.0[facility] CenterCobalamin (Vitamin B12) [Mass/Vol]1089 pg/mP878-4665WhntzuubfTrumbull Regional Medical CenterComment on above: Performed at: - [facility] [id number] Director: Carlos Witt PhD, Phone: [phone] [Mass/Vol]1.45 mg/dLHigh0.55-1.02[facility] Medical CenterFerritin [Mass/Vol]176.0 ng/mL8.0-252.0[facility] Medical CenterFree T4 [Mass/Vol]0.97 ng/dL 0.76-1.46[facility] CenterGFR/1.73 sq M.predicted MDRD (S/P/Bld) [Vol rate/Area]42 mL/min/{1.73_m2}Low>=60 mL/min/1.73m 2FUniversity Hospitals Conneaut Medical CenterGlucose [Mass/Vol]94 mg/eD99-310BeudqtjggTrumbull Regional Medical Center Iron [Mass/Vol]35.0 ug/dLLow50.0-170.0[facility] CenterPotassium [Moles/Vol]4.3 mmol/L3.5-5.1FUniversity Hospitals Conneaut Medical CenterProtein [Mass/Vol] 0.2 g/dLAbnormalNot ObservedTrumbull Regional Medical CenterProtein [Mass/Vol] 6.5 g/dL6.4-8.2FMetroHealth Main Campus Medical Centerodium [Moles/Vol]142 mmol/L 136-145[facility] Medical CenterTriglyceride [Mass/Vol]89 mg/dL<=150 [facility] CenterTSH Qn5.101 m[IU]/LHigh0.358-3.740Tr[facility] Medical CenterUrea nitrogen [Mass/Vol]22.0 mg/dLHigh7.0-18.0[facility] CenterUrea nitrogen/Creatinine [Mass ratio]15.2 mg/mgTrumbull Regional Medical CenterLaboratory - Hematology and Cell countsOrdered By: Nathan Hathaway on 07-00-8802Fkyyusvp granulocytes/100 WBC (Bld)0.4 %0.0-0.5 [facility] CenterLeukocytes [#/volume] corrected for nucleated erythrocytes in Blood by Automated counOrdered By: Nathan Hathaway on 06-23-2025 WBC corrected for nucl RBC Auto (Bld) [#/Vol]5.6 10 3/uL4.0-11.0[facility] Medical CenterLymphocytes Auto (Bld) [#/Vol]Ordered By: Nathan Hathaway on 88-17-3343Mwdcnqpkuev (Bld) [#/Vol]0.8 10 3/uLLow1.2-3.8[facility] Medical CenterLymphocytes/100 WBC Auto (Bld)Ordered By: Nathan Hathaway on 26-21-5589Elfkdtwbhsb/100 WBC (Bld)14.4 %Low20.5-60.0Newark HospitalH Auto (RBC) [Entitic mass]Ordered By: Nathan Hathaway on 70-14-8867GQU (RBC) [Entitic mass]29.0 pg26.7-34.0[facility] CenterMCHC Auto (RBC) [Mass/Vol]Ordered By: Nathan Hathaway on 70-54-5393VXJF (RBC) [Mass/Vol]32.9 g/dL29.9-35.2FUniversity Hospitals Conneaut Medical CenterMCV Auto (RBC) [Entitic vol] Ordered By: Nathan Hathaway on 88-33-3576DIZ (RBC) [Entitic vol]88.2 fL81.0-99.0 [facility] CenterMonocytes Auto (Bld) [#/Vol]Ordered By: Nathan Hathaway on 95-28-6937Fsusvefrb (Bld) [#/Vol]0.5 10 3/uL0.3-0.8[facility] CenterMonocytes/100 WBC Auto (Bld)Ordered By: Nathan Hathaway on 17-44-1408Dbxpmxpxh/100 WBC (Bld)8.7 %1.7-12.0[facility] Neutrophils Auto (Bld) [#/Vol]Ordered By: Nathan Hathaway on 20-76-4635Wcnpqbgbayt (Bld) [#/Vol]4.1 10 3/uL1.4-6.5FUniversity Hospitals Conneaut Medical CenterNeutrophils/100 WBC Auto (Bld)Ordered By: Nathan Hathaway on 83-46-9503Gkztcpcluav/100 WBC (Bld) 73.1 %43.0-75.0[facility] CenterNo Panel InformationOrdered By: Nathan Hathaway on 87-17-8039Zqurveihuqm # (Auto)0.2 10 3/uL0.0-0.7FUniversity Hospitals Conneaut Medical CenterFolate17.90 ng/mL8.60-58.90[facility] CenterImmature Granulocyte # (Auto)0.02 10 3/uL0.00-0.03[facility] CenterProtein Electrophoresis NoteComment.[facility] CenterComment on above:Protein electrophoresis scan will follow via computer,mail, or hog cutter delivery.Platelet mean volume Auto (Bld) [Entitic vol] Ordered By: Nathan Hathaway on 44-78-9176Toeqajcw mean volume (Bld) [Entitic vol] 10.2 fL9.5-13.5FUniversity Hospitals Conneaut Medical CenterPlatelets Auto (Bld) [#/Vol] Ordered By: Nathan Hathaway on 03-31-0964Ldrbweclw (Bld) [#/Vol]270 10 3/pW349-831 [facility] CenterProtein [Mass/volume] in Serum or PlasmaOrdered By: Nathan Hathaway on 51-71-7186Pvqeisj [Mass/Vol]5.7 g/dLAbnormal6.0-8.5 [facility] CenterRBC Auto (Bld) [#/Vol]Ordered By: Nathan Hathaway on 25-88-1819BHC (Bld) [#/Vol]3.21 10 6/uLLow4.20-5.40[facility] Springfielderum globulin measurement (mass/volume)Ordered By: Nathan Hathaway on 43-84-1958Ccecftid (S) [Mass/Vol]2.5 g/dL2.2-3.9[facility] Springfielderum or plasma albumin/globulin mass ratioOrdered By: Nathan Hathaway on 70-52-2692Tuatovk/Globulin [Mass ratio]1.0 {ratio}[facility] CenterAlbumin/Globulin [Mass ratio]1.3 {ratio}0.7-1.7FMetroHealth Main Campus Medical Centererum or plasma alpha 1 globulin measurement by electrophoresis (mass/volume)Ordered By: Nathan Hathaway on 72-91-5477Nhbhy 1 globulin Elph [Mass/Vol]0.3 g/dL0.0-0.4FMetroHealth Main Campus Medical Centererum or plasma alpha 2 globulin measurement by electrophoresis (mass/volume)Ordered By: Nathan Hathaway 53-34-5860Xxwyy 2 globulin Elph [Mass/Vol]1.0 g/dL0.4-1.0[facility] Springfielderum or plasma anion gap determinationOrdered By: Nathan Hathaway on 04-28-5253Qttuq gap [Moles/Vol]12.1 mmol/LFUniversity Hospitals Conneaut Medical Center Serum or plasma beta globulin measurement by electrophoresis (mass/volume) Ordered By: Nathan Hathaway on 94-13-0617Fzro globulin Elph [Mass/Vol]0.7 g/dL 0.7-1.3FMetroHealth Main Campus Medical Centererum or plasma gamma globulin measurement by electrophoresis (mass/volume)Ordered By: Nathan Hathaway on 72-95-5702Yxfei globulin Elph [Mass/Vol]0.5 g/dL0.4-1.8[facility] Springfielderum or plasma immunoelectrophoresis interpretationOrdered By: Nathan Hathaway on 97-81-8230Bnrvxnukkmncti IEP [Interp]CommentAbnormal.[facility] CenterComment on above:Immunofixation shows IgM monoclonal protein with kappalight chain specificity.Serum or plasma total cholesterol/high density lipoprotein (HDL) cholesterol mass ratOrdered By: Nathan Hathaway on 22-60-1903Wtayguvraxg.total/Cholesterol in HDL [Mass ratio]2.7 {ratio}[facility] CenterComment on above:3.3 - 4.4 LOW RISK4.4 - 7.1 AVERAGE RISK7.1 - 11.0 MODERATE RISK>11.0 HIGH RISKEstimated glomerular filtration rate (GFR) non- Americanon 44-61-7359PML/1.73 sq M.predicted among non-blacks MDRD (S/P/Bld) [Vol rate/Area]Estimated glomerular filtration rate (GFR) non- AmericanLow>=60 mL/min/1.73m [address] [place], [place] [address]GFR/1.73 sq M.predicted among non-blacks MDRD (S/P/Bld) [Vol rate/Area]31 mL/min/{1.73_m2}Low>=60 mL/min/1.73m [address] [place] [address] Laboratory - Chemistry and Chemistry - challengeon 90-66-2989Hxfggnb [Mass/Vol] 8.9 mg/dL8.5-10.1FUniversity Hospitals Conneaut Medical CenterChloride [Moles/Vol]105 mmol/L 98-107[facility] CenterCO2 [Moles/Vol]30.7 mmol/L21.0-32.0 [facility] CenterCreatinine [Mass/Vol]1.60 mg/dLHigh0.55-1.02 [facility] CenterGFR/1.73 sq M.predicted MDRD (S/P/Bld) [Vol rate/Area]37 mL/min/{1.73_m2}Low>=60 mL/min/1.73m 2FUniversity Hospitals Conneaut Medical CenterGlucose [Mass/Vol]112 mg/nAHcqp40-114DltkthcrbTrumbull Regional Medical Center Potassium [Moles/Vol]4.4 mmol/L3.5-5.1FMetroHealth Main Campus Medical Centerodium [Moles/Vol]145 mmol/I266-413UgomxdfmeTrumbull Regional Medical CenterTSH Qn3.657 m[IU]/L 0.358-3.740[facility] CenterUrea nitrogen [Mass/Vol]33.0 mg/dL High7.0-18.0[facility] CenterUrea nitrogen/Creatinine [Mass ratio]20.6 mg/mgKettering Health Springfielderum or plasma anion gap determinationon 85-13-3631Hxmsi gap [Moles/Vol]Serum or plasma anion gap determinationTrumbull Regional Medical CenterAnion gap [Moles/Vol]13.7 mmol/L [facility] CenterTRANSTHORACIC ECHO (TTE) COMPLETEon 03-17-2025 TRANSTHORACIC ECHO (TTE) [address], [address] [place] [address] TRANSTHORACIC ECHOCARDIOGRAM REPORT Patient Name: LASHAUNGonzález Doherty Physician: [id number] Bryce Guy MD, [facility] Study Date: 03/17/2025 Ordering Provider: [id number] HOLDEN ROSADO MRN/PID: [id number] Fellow: Nurse: Date of /Age: 11 1940 Air Technician: Nicolasa taylor RDCS, RVT Gender Assigned at F Additional Staff: : Height: 165.10 cm Admit Date: Weight: 90.72 kg Admission Status: BSA / BMI: 1.98 m2 / 33.28 Department Location: [place] kg/m2 [facility] [place] Blood Pressure: 120 /64 mmHg Study Type: TRANSTHORACIC ECHO (TTE) COMPLETE Diagnosis/ICD: Essential (primary) hypertension-I10; Palpitations-R00.2 Indication: CAD, PTCA-2022, Edema, Hyperlipidemia, Former Smoker CPT Codes: Echo Complete w Full Doppler-46360 Study Detail: The following Echo studies were [...] VALVE: Normal Ranges: RV (more content not included)...[facility] Medical CenterAcanthocytes [Presence] in Blood by Light microscopyOrdered By: Jorge L Cruz on 12-02-8471Jnrvqqzobeja LM Ql (Bld)Acanthocytes [Presence] in Blood by Light microscopyTrumbull Regional Medical CenterAlanine aminotransferase [Enzymatic activity/volume] in Serum or PlasmaOrdered By: Jorge L Cruz on 97-63-0973LVL [Catalytic activity/Vol]Alanine aminotransferase [Enzymatic activity/volume] in Serum or Plasma7-52[facility] CenterAlbumin [Mass/volume] in Serum or Plasma by Bromocresol green (BCG) dye binding metho Ordered By: Jorge L Cruz on 62-00-4015Ombttip BCG dye [Mass/Vol]Albumin [Mass/volume] in Serum or Plasma by Bromocresol green (BCG) dye binding metho 3.5-5.7FUniversity Hospitals Conneaut Medical CenterAlkaline phosphatase [Enzymatic activity/volume] in Serum or PlasmaOrdered By: Jorge L Cruz on 02-12-2025 ALP [Catalytic activity/Vol]Alkaline phosphatase [Enzymatic activity/volume] in Serum or Rfiikz80-104IzygmxaqiTrumbull Regional Medical CenterAnisocytosis LM Ql (Bld) Ordered By: Jorge L Cruz on 55-47-0081Uwmasrskiqyv Ql (Bld)Anisocytosis [Presence] in Blood by Light microscopyTrumbull Regional Medical Center Aspartate aminotransferase [Enzymatic activity/volume] in Serum or PlasmaOrdered By: Jorge L Cruz on 64-16-3666QJC [Catalytic activity/Vol]Aspartate aminotransferase [Enzymatic activity/volume] in Serum or Dcvuat29-21KomgcldmuTrumbull Regional Medical CenterB-Type Natriuretic Peptideon 25-13-8603Pjafalmuqtw peptide B (Bld) [Mass/Vol]246.0 pg/mLHigh5-100The [facility] Comment on above:Result Comment: PERFORMED BY: [facility] [address] [facility] [place] [address] PATHOLOGIST PERSONAL LINES INSURANCE ADVISOR RAMEZ MONTES M.D.Performed By: #### SCAN CBC, CK, HS TROP, BNP, PT, PTT ####[facility] Basophils Auto (Bld) [#/Vol]Ordered By: Jorge L Cruz on 13-14-6918Vjtxehqrh (Bld) [#/Vol]Automated basophil count0.0-0.2FUniversity Hospitals Conneaut Medical Center Basophils/100 WBC Auto (Bld)Ordered By: Jorge L Cruz on 02-12-2025 Basophils/100 WBC (Bld)Automated basophil %.[facility] Bilirubin.total [Mass/volume] in Serum or PlasmaOrdered By: Jorge L Cruz on 83-68-9428Nfffxhmhm [Mass/Vol]Bilirubin.total [Mass/volume] in Serum or Plasma 0.3-1.0[facility] CenterCalcium [Mass/volume] in Serum or Plasma Ordered By: Jorge L Cruz on 76-55-5002Bzsbdew [Mass/Vol]Calcium [Mass/volume] in Serum or Plasma8.6-10.3FUniversity Hospitals Conneaut Medical CenterCarbon dioxide, total [Moles/volume] in Serum or PlasmaOrdered By: Jorge L Cruz on 59-26-4389JE5 [Moles/Vol]Carbon dioxide, total [Moles/volume] in Serum or Najeiv13.0-31.0[facility] CenterChloride [Moles/volume] in Serum or PlasmaOrdered By: Jorge L Cruz on 05-06-4550Tliyxsee [Moles/Vol] Chloride [Moles/volume] in Serum or Fjbbal46-569KbomrexdsTrumbull Regional Medical CenterComprehensive Metabolic Panelon 74-71-2110Lwrfiqq [Mass/Vol]3.8 g/dLNormal 3.5-5.7The [facility]atham Physician GroupComment on above:Performed By: #### TSH3, CMP, MG #### [facility] [address] [place] [address] USAAlbumin/Globulin [Mass ratio]1.6 {ratio}NormalThe [facility]atham Physician GroupComment on above:Performed By: #### TSH3, CMP, MG #### [facility] [address] [place] [address] USAALP [Catalytic activity/Vol]43 U/VHfrcmo35-095Atd [facility] Physician GroupComment on above:Performed By: #### TSH3, CMP, MG #### [facility] [address] [place] [address] USAALT [Catalytic activity/Vol]14 U/LNormal7-52The [facility] Physician GroupComment on above:Performed By: #### TSH3, CMP, MG #### [facility] [address] [place] [id number] USAAnion gap [Moles/Vol]11.4 mmol/LNormal6.0-15.0The [facility] Physician GroupComment on above:Performed By: #### TSH3, CMP, MG #### [facility] [address] [place] [id number] USAAST [Catalytic activity/Vol]19 U/YOxwqop68-32Jlf [facility] Physician GroupComment on above:Performed By: #### TSH3, CMP, MG #### [facility] [address] [place] [id number] USABilirubin [Mass/Vol]0.4 mg/dLNormal0.3-1.0The [facility] Physician GroupComment on above:Performed By: #### TSH3, CMP, MG #### [facility] [address] [place] [address] USACalcium [Mass/Vol]9.1 mg/dLNormal8.6-10.3The [facility] Physician GroupComment on above:Performed By: #### TSH3, CMP, MG #### [facility] [address] [place] [address] USAChloride [Moles/Vol]107 mmol/VUtmcww66-170Srk [facility] Physician GroupComment on above:Performed By: #### TSH3, CMP, MG #### [facility] [address] [place] [address] USACO2 [Moles/Vol]27.7 mmol/QCatwos31.0-31.0The [facility] Physician GroupComment on above:Performed By: #### TSH3, CMP, MG #### [facility] [address] [place] [address] USACreatinine [Mass/Vol]1.28 mg/dLHigh0.60-1.20The [facility] Physician GroupComment on above:Performed By: #### TSH3, CMP, MG #### [facility] [address] [place] [address] USACreatinine Clr Calc Cpdnxmpv66.75NoCritical access hospital Physician GroupComment on above:Performed By: #### TSH3, CMP, MG #### [facility] [address] [place] [address] USAEstimated GFR41.827 mL/MinNoCritical access hospital Physician GroupComment on above:Performed By: #### TSH3, CMP, MG #### [facility] [address] [place] [address] USAGlobulin (S) [Mass/Vol]2.4 g/dLNoCritical access hospital Physician GroupComment on above:Performed By: #### TSH3, CMP, MG #### [facility] [address] [place] [address] USAGlucose [Mass/Vol]102 mg/pDAkvw40-346Qqz [facility] Physician GroupComment on above:Result Comment: Random Glucose Reference Range is dependent on time and content of last meal. Glucose of more than 200 mg/dL in a nonstressed, ambulatory subject supports the diagnosis of Diabetes Mellitus. ADA recommended reference rangePerformed By: #### TSH3, CMP, MG #### [facility] [address] [place] [address] USAPotassium [Moles/Vol]4.1 mmol/LNormal3.5-5.1The [facility] Physician GroupComment on above:Performed By: #### TSH3, CMP, MG #### [facility] [address] [place] [address] USAProtein [Mass/Vol]6.2 g/dLLow6.4-8.9The [facility] Physician GroupComment on above:Performed By: #### TSH3, CMP, MG #### [facility] [address] [place] [address] USASodium [Moles/Vol]142 mmol/UWdejrp997-052Uzf [facility] Physician GroupComment on above:Performed By: #### TSH3, CMP, MG #### [facility] [address] [place] [address] USAUrea nitrogen [Mass/Vol]28 mg/dLHigh7-25The [facility] Physician GroupComment on above:Performed By: #### TSH3, CMP, MG #### [facility] [address] [place] [address] USACreatine Kinaseon 73-41-6364AH [Catalytic activity/Vol]35 U/BHvyajk98-928Ixt [facility] Physician GroupComment on above:Performed By: #### SCAN CBC, CK, HS TROP, BNP, PT, PTT ####[facility] [address] [place] [id number] USACreatine kinase [Enzymatic activity/volume] in Serum or PlasmaOrdered By: Jorge L Cruz on 23-45-6527MM [Catalytic activity/Vol] Creatine kinase [Enzymatic activity/volume] in Serum or Ctylxv05-638TjjdfgtacTrumbull Regional Medical CenterCreatinine [Mass/volume] in Serum or PlasmaOrdered By: Jorge L Cruz on 79-63-8870Aadfjznjil [Mass/Vol]Creatinine [Mass/volume] in Serum or PlasmaHigh0.60-1.20[facility] CenterECG 12 lead ECGon 04-37-9425JMI 12 lead ECGMERCY HE[facility] [place] [address] Electrocardiograph Report Signed Patient: Lashaun Joaquin MR#: [id number] : 1940 Acct:[id number] Age/Sex: 84 / F ADM Date: 02/12/25 Loc: ER Room: Type: [facility] ER Attending Dr: Ordering Provider: Jorge [...] rhythm Confirmed by Jorge L CRUZ DO ([id number]) on 02/12/2025 10:52:00 AM Referred By: Electronically Signed By: Jorge L CRUZ DO Transcribed By: MUS Signed By Jorge L Cruz DO 0 02/12/[address] [place] [address] Physician GroupEosinophils Auto (Bld) [#/Vol] Ordered By: Jorge L Cruz on 85-02-2663Qonlklkvouo (Bld) [#/Vol]Automated eosinophil count0.0-0.45[facility] CenterEosinophils/100 WBC Auto (Bld)Ordered By: Jorge L Cruz on 43-37-0431Ofccaqigwoc/100 WBC (Bld) Automated eosinophil %.[facility] CenterErythrocyte distribution width Auto (RBC) [Ratio]Ordered By: Jorge L Cruz on 61-07-2305Erhgbyreusv distribution width (RBC) [Ratio]Erythrocyte distribution width [Ratio] by Automated count11.9-15.3FUniversity Hospitals Conneaut Medical CenterErythrocyte morphology finding [Identifier] in BloodOrdered By: Jorge L Cruz on 88-70-8646NGG morphology finding Nom (Bld)RBC morphologyTrumbull Regional Medical Center Globulin Calc (S) [Mass/Vol]Ordered By: Jorge L Cruz on 85-08-7801Wiizeahw (S) [Mass/Vol]Serum globulin measurement by calculation (mass/volume)[facility] CenterGlucose [Mass/volume] in Serum or PlasmaOrdered By: Jorge L Cruz on 15-27-5675Dpavldi [Mass/Vol]Glucose [Mass/volume] in Serum or JmwezzTxnc39-688HmmrrzejuTrumbull Regional Medical CenterComment on above:ADA recommended reference rangeRandom Glucose Reference Range is dependent on time and content of last meal. Glucose of more than 200 mg/dL in a nonstressed, ambulatory subject supports the diagnosisof Diabetes Mellitus.Hematocrit Auto (Bld) [Volume fraction]Ordered By: Jorge L Cruz on 20-94-8159Ddcpoccvqm (Bld) [Volume fraction]Hematocrit [Volume Fraction] of Blood by Automated count Low34.0-46.4FUniversity Hospitals Conneaut Medical CenterHemoglobin [Mass/volume] in Blood Ordered By: Jorge L Cruz on 41-52-3047Zjjrcsgmvv (Bld) [Mass/Vol]Hemoglobin [Mass/volume] in JjxqqOab64.8-15.4FUniversity Hospitals Conneaut Medical CenterINR in Platelet poor plasma by Coagulation assayOrdered By: Jorge L Cruz on 65-84-9201GNA Coag (PPP) [Relative time]INR in Platelet poor plasma by Coagulation assayTrumbull Regional Medical CenterComment on above:INR Therapeutic Range A) Pre- and [...] Automated counOrdered By: Jorge L Cruz on 83-98-4199LUP corrected for nucl RBC Auto (Bld) [#/Vol]Leukocytes [#/volume] corrected for nucleated erythrocytes in Blood by Automated coun3.8-11.6FUniversity Hospitals Conneaut Medical CenterLymphocytes Auto (Bld) [#/Vol]Ordered By: Jorge L Cruz on 06-20-9518Qovwczvppyy (Bld) [#/Vol]Lymphocytes [#/volume] in Blood by Automated countLow1.00-4.8[facility] CenterLymphocytes/100 WBC Auto (Bld)Ordered By: Jorge L Cruz on 04-33-8033Wvngfbybfff/100 WBC (Bld)Lymphocytes/100 leukocytes in Blood by Automated count.[facility] HospitalH Auto (RBC) [Entitic mass]Ordered By: Jorge L Cruz on 87-22-7149SJA (RBC) [Entitic mass]MCH [Entitic mass] by Automated count24.7-34.3FUniversity Hospitals Conneaut Medical CenterMCHC Auto (RBC) [Mass/Vol]Ordered By: Jorge L Cruz on 55-76-0550GFTL (RBC) [Mass/Vol]MCHC [Mass/volume] by Automated count32.0-35.0[facility]ark HospitalV Auto (RBC) [Entitic vol]Ordered By: Jorge L Cruz on 50-79-1881BYB (RBC) [Entitic vol]MCV [Entitic volume] by Automated ivvkq88-957 [facility] CenterMagnesiumon 30-46-5261Xhbcntasp [Mass/Vol]2.3 mg/dLNormal1.9-2.7The [facility] Physician GroupComment on above:Performed By: #### TSH3, CMP, MG #### [place] [address] USAMagnesium [Mass/volume] in Serum or PlasmaOrdered By: Jorge L Cruz on 04-18-4285Kxxslfiaf [Mass/Vol]Magnesium [Mass/volume] in Serum or Plasma1.9-2.7FUniversity Hospitals Conneaut Medical CenterMicrocytes LM Ql (Bld) Ordered By: Jorge L Cruz on 20-29-1825Xloomszdur Ql (Bld)Microcytes [Presence] in Blood by Light microscopyTrumbull Regional Medical CenterMonocyte distribution width [Entitic volume] in Blood by AutomatedOrdered By: Jorge L Cruz on 22-15-0458Qcxrroha distribution width Auto (Bld) [Entitic vol] Monocyte distribution width [Entitic volume] in Blood by AutomatedHigh0.00-20.00 [facility] CenterComment on above:For adults in ED, MDW > 20.0 may be associated with a higher risk of sepsis during the first 12 hrs of hospital admissionMonocytes Auto (Bld) [#/Vol]Ordered By: Jorge L Cruz on 10-55-0911Omesjhmrd (Bld) [#/Vol]Automated blood monocyte count0.0-0.8[facility] CenterMonocytes/100 WBC Auto (Bld)Ordered By: Jorge L Cruz on 46-24-7798Qnfsuxyte/100 WBC (Bld)Automated monocyte %.[facility] CenterNatriuretic peptide B [Mass/Vol]Ordered By: Jorge L Cruz on 18-14-6752Zexeqxsbxpk peptide B (Bld) [Mass/Vol]BNP ser/plasHigh5-100[facility] CenterNeutrophils Auto (Bld) [#/Vol]Ordered By: Jorge L Cruz on 64-50-0715Hgfqkvyftfx (Bld) [#/Vol]Neutrophils [#/volume] in Blood by Automated count1.8-7.7FUniversity Hospitals Conneaut Medical CenterNeutrophils/100 WBC Auto (Bld)Ordered By: Jorge L Cruz on 64-59-8660Wajawvnytyz/100 WBC (Bld) Automated neutrophil %.[facility] CenterNo Panel Information Ordered By: Jorge L Cruz on 52-07-9130Sixccpdhc GFR (CKD-EPI)41.827 mL/Min [facility] CenterPharmacy Creatinine Clearance (Chem37.75 [facility] CenterNucleated erythrocytes [Presence] in Blood by Automated countOrdered By: Jorge L Cruz on 57-44-5112Vpjlwszju RBC Auto Ql (Bld)Nucleated erythrocytes [Presence] in Blood by Automated count0-0.5FUniversity Hospitals Conneaut Medical CenterOvalocytes [Presence] in Blood by Light microscopy Ordered By: Jorge L Cruz on 05-78-8463Rdffeadzhv LM Ql (Bld)Ovalocyte detectionTrumbull Regional Medical CenterPartial Thromboplastin Timeon 13-77-0077vVEF Coag (Bld) [Time]29.8 xFixgbr56.1-36.5The [facility] Physician GroupComment on above:Result Comment: A hematocrit value greater than 55% may lead to inaccurate results in coagulation testing. Patients having hematocrit values >55% require a special collection tube for coagulation studies. Please contact the laboratory at [phone] for redraw instructions. PERFORMED BY: [facility] In[address]. [place] [id number] PATHOLOGIST PERSONAL LINES INSURANCE ADVISOR RAMEZ MONTES M.D.Performed By: #### SCAN CBC, CK, HS TROP, BNP, PT, PTT ####[facility] [address] [place] [id number] [facility] Platelet adequacy [Presence] in Blood by Light microscopyOrdered By: Jorge L Cruz on 12-42-9966Alxjqexnd LM Ql (Bld)Platelet adequacy [Presence] in Blood by Light microscopyNormalTrumbull Regional Medical CenterPlatelet mean volume Auto (Bld) [Entitic vol]Ordered By: Jorge L Cruz on 21-93-0188Fshtznpi mean volume (Bld) [Entitic vol]Platelet mean volume [Entitic volume] in Blood by Automated count6.3-10.7FUniversity Hospitals Conneaut Medical CenterPlatelet morphology finding [Identifier] in BloodOrdered By: Jorge L Cruz on 05-52-1581Rhprpbfq morphology finding Nom (Bld)Platelet morphology finding [Identifier] in Blood NormalTrumbull Regional Medical CenterPlatelets Auto (Bld) [#/Vol]Ordered By: Jorge L Cruz on 58-22-1911Ppltqqjln (Bld) [#/Vol]Platelets [#/volume] in Blood by Automated -168XlfahbxzfTrumbull Regional Medical CenterPoikilocytosis [Presence] in Blood by Light microscopyOrdered By: Jorge L Cruz on 04-43-5245Pmjeyhhzjhrbzt LM Ql (Bld)Poikilocytosis [Presence] in Blood by Light microscopyTrumbull Regional Medical CenterPotassium [Moles/volume] in Serum or PlasmaOrdered By: Jorge L Cruz on 65-70-9020Wvndofagp [Moles/Vol]Potassium [Moles/volume] in Serum or Plasma3.5-5.1FUniversity Hospitals Conneaut Medical CenterProtein [Mass/volume] in Serum or PlasmaOrdered By: Jorge L Cruz on 02-12-2025 Protein [Mass/Vol]Protein [Mass/volume] in Serum or PlasmaLow6.4-8.9[facility] CenterProthrombin Time INRon 94-14-3443VWJ Coag (PPP) [Relative time]1.0 {INR}NormalThe [facility]atham Physician GroupComment on above:Result Comment: INR Therapeutic [...] CBC, CK, HS TROP, BNP, PT, PTT ####[facility] [place] [id number] USAPT Coag (PPP) [Time]11.3 sNormal9.0-12.9[facility] Physician [facility] CenterComment on above:Result Comment: A hematocrit value greater than 55% may lead to inaccurate results in coagulation testing. Patients having hematocrit values >55% require a special collection tube for coagulation studies. Please contact the laboratory at [phone] for redraw instructions.Performed By: #### SCAN CBC, CK, HS TROP, BNP, PT, PTT ####[place] [address] [place] [id number] [facility] Prothrombin time (PT)Ordered By: Jorge L Cruz on 02-94-5544LH Coag (PPP) [Time]Prothrombin time (PT)9.0-12.9[facility] Medical CenterComment on above:A hematocrit value greater than 55% may lead to inaccurate results in coagulation testing. Patientshaving hematocrit values >55% require a special collection tube for coagulation studies. Please contact the laboratory at [phone] for redraw instructions.RBC Auto (Bld) [#/Vol]Ordered By: Jorge L Cruz on 45-49-4702IGW (Bld) [#/Vol]Erythrocytes [#/volume] in Blood by Automated countLow3.60-5.00[facility] Springfieldcan and CBCon 11-58-3729LnssnewylzhvFxhtkdLajfxxWryWickenburg Regional HospitalComment on above: Performed By: #### SCAN CBC, CK, HS TROP, BNP, PT, PTT ####[place] [address] [place] [phone] USAAnisocytosis Ql (Bld)Moderate NormalThe [facility] Physician GroupComment on above:Performed By: #### SCAN CBC, CK, HS TROP, BNP, PT, PTT ####[place] [address] USABasophils (Bld) [#/Vol]0.0 10*3/uLNormal0.0-0.2The [facility] Physician GroupComment on above:Performed By: #### SCAN CBC, CK, HS TROP, BNP, PT, PTT ####[place] [address] USABasophils/100 WBC (Bld)0.6 %Normal.The [facility] Comment on above:Performed By: #### SCAN CBC, CK, HS TROP, BNP, PT, PTT ####[address] Eosinophils (Bld) [#/Vol]0.1 10*3/uLNormal0.0-0.45The [facility] Comment on above:Performed By: #### SCAN CBC, CK, HS TROP, BNP, PT, PTT ####[address] Eosinophils/100 WBC (Bld)1.5 %Normal.The [facility] Physician GroupComment on above:Performed By: #### SCAN CBC, CK, HS TROP, BNP, PT, PTT ####[address]Erythrocyte distribution width (RBC) [Ratio]13.8 %Stkrha98.9-15.3The [facility] Physician GroupComment on above:Performed By: #### SCAN CBC, CK, HS TROP, BNP, PT, PTT ####[address] Hematocrit (Bld) [Volume fraction]29.7 %Low34.0-46.4The [facility] Physician GroupComment on above:Performed By: #### SCAN CBC, CK, HS TROP, BNP, PT, PTT ####[address] Hemoglobin (Bld) [Mass/Vol]10.2 g/dLLow11.8-15.4The [facility] Comment on above:Performed By: #### SCAN CBC, CK, HS TROP, BNP, PT, PTT ####[address] Lymphocytes (Bld) [#/Vol]0.9 10*3/uLLow1.00-4.8The [facility] Comment on above:Performed By: #### SCAN CBC, CK, HS TROP, BNP, PT, PTT ####[address] Lymphocytes/100 WBC (Bld)13.6 %Normal.The [facility] Phys[facility] GroupComment on above:Performed By: #### SCAN CBC, CK, HS TROP, BNP, PT, PTT ####[address]H (RBC) [Entitic mass]28.9 jrAjwquz06.7-34.3The [facility] Physician GroupComment on above: Performed By: #### SCAN CBC, CK, HS TROP, BNP, PT, PTT ####[address] StreetV (RBC) [Entitic vol]83.9 fL Hxncga65-244Vlr [facility] GroupComment on above:Performed By: #### SCAN CBC, CK, HS TROP, BNP, PT, PTT ####[place] [address] USAMean Corpuscular HGB Conc34.5 g/wQXeniws34.0-35.0The [facility] GroupComment on above:Performed By: #### SCAN CBC, CK, HS TROP, BNP, PT, PTT ####[place] [address] USAMicrocytosisModerateNormalThe [facility]ician GroupComment on above:Performed By: #### SCAN CBC, CK, HS TROP, BNP, PT, PTT ####[place] [address] USAMonocytes (Bld) [#/Vol]0.4 10*3/uLNormal0.0-0.8The [facility] GroupComment on above: Performed By: #### SCAN CBC, CK, HS TROP, BNP, PT, PTT ####[place] [address] USAMonocytes/100 WBC (Bld)21.49 % High0.00-20.00The [facility] Physician GroupComment on above:Result Comment: For adults in ED, MDW > 20.0 may be associated with a higher risk of sepsis during the first 12 hrs of hospital admissionPerformed By: #### SCAN CBC, CK, HS TROP, BNP, PT, PTT ####[place] [address] USAMonocytes/100 WBC (Bld)6.6 %Normal.The [facility] GroupComment on above:Performed By: #### SCAN CBC, CK, HS TROP, BNP, PT, PTT ####[place] [address] [place] Neutrophils (Bld) [#/Vol]4.9 10*3/uLNormal1.8-7.7The [facility] Comment on above:Performed By: #### SCAN CBC, CK, HS TROP, BNP, PT, PTT ####[place] [address] [place] Neutrophils/100 WBC (Bld)77.7 %Normal.The [facility] GroupComment on above:Performed By: #### SCAN CBC, CK, HS TROP, BNP, PT, PTT ####[place] [address] USANRBC%0.1 /100{WBC} Normal0-0.5The [facility] GroupComment on above:Performed By: #### SCAN CBC, CK, HS TROP, BNP, PT, PTT ####[place] [id number] USAOvalocytesSlightNoCritical access hospital Physician Group Comment on above:Performed By: #### SCAN CBC, CK, HS TROP, BNP, PT, PTT ####[address] [address] USAPlatelet EstimateNormalNormalNormWest [facility]oca [facility] Center Physician GroupComment on above: Performed By: #### SCAN CBC, CK, HS TROP, BNP, PT, PTT ####[address] [address] USAPlatelet mean volume (Bld) [Entitic vol]7.7 fLNormal6.3-10.7The [facility] GroupComment on above: Performed By: #### SCAN CBC, CK, HS TROP, BNP, PT, PTT ####[address] [address] USAPlatelet MorphologyNormalNormal NormalThe [facility] GroupComment on above:Result Comment: PERFORMED BY: [facility] [address] [place] [address] PATHOLOGIST PERSONAL LINES INSURANCE ADVISOR RAMEZ MONTES M.D.Performed By: #### SCAN CBC, CK, HS TROP, BNP, PT, PTT ####[address] [address] [place] Platelets (Bld) [#/Vol]383 10*3/cJCcjkif582-210Ues [facility] Comment on above:Performed By: #### SCAN CBC, CK, HS TROP, BNP, PT, PTT ####[address] [address] [place] PoikilocytosisModerateNormWest Boca Medical Center Physician GroupComment on above: Performed By: #### SCAN CBC, CK, HS TROP, BNP, PT, PTT ####[address] [address] USARBC (Bld) [#/Vol]3.54 10*6/uL Low3.60-5.00The [facility] GroupComment on above:Performed By: #### SCAN CBC, CK, HS TROP, BNP, PT, PTT ####[facility] [place] [address] USAWBC (Bld) [#/Vol]6.3 10*3/uLNormal3.8-11.6The [facility] GroupComment on above:Performed By: #### SCAN CBC, CK, HS TROP, BNP, PT, PTT ####[facility] [place] [address] USAWBC (Bld) [#/Vol]7.6 10*3/uLNormal3.8-11.6The [facility] GroupComment on above:Performed By: #### SCAN CBC, CK, HS TROP, BNP, PT, PTT ####[facility] [place] [address] USASerum or plasma albumin/globulin mass ratioOrdered By: Jorge L Cruz on 02-12-2025 Albumin/Globulin [Mass ratio]Serum or plasma albumin/globulin mass ratio [facility] Springfielderum or plasma anion gap determinationOrdered By: Jorge L Cruz on 43-79-2966Pncvk gap [Moles/Vol]Serum or plasma anion gap determination6.0-15.0[facility] Springfieldodium [Moles/volume] in Serum or PlasmaOrdered By: Jorge L Cruz on 02-44-1544Xwqzzw [Moles/Vol] Sodium [Moles/volume] in Serum or Vsdykk637-021TyhubmocgTrumbull Regional Medical Center Thyroid Stimulating Hormoneon 88-24-1715KHL Qn6.48 m[IU]/LHigh0.45-5.33The [facility] GroupComment on above:Result Comment: PERFORMED BY: [facility] [address] [place] [address] PATHOLOGIST PERSONAL LINES INSURANCE ADVISOR RAMEZ MONTES M.D.Performed By: #### TSH3, CMP, MG #### [facility] [address] [place] [address] USAThyrotropin [Units/volume] in Serum or PlasmaOrdered By: Jorge L Cruz on 70-43-9501ZSW QnThyrotropin [Units/volume] in Serum or PlasmaHigh0.45-5.33Tr[facility] Medical CenterTroponin I High Sensitivity on 92-16-4665Hzleeqqv I High Qevkdhnquus65Dcbqki5-30Xrk [facility] GroupComment on above:Result Comment: The Troponin units of report have been changed to meet the Chest Pain Accreditation requirement, element EC5.M1l2. Troponin units are changed from pg/ml to ng/L. Also, the decimal is removed and results are in whole numbers. PERFORMED BY: [place] [address] PATHOLOGIST PERSONAL LINES INSURANCE ADVISOR RAMEZ MONTES M.D.Performed By: #### HS TROP ####[place] [address] [place] [address] USATroponin I High Tmfxxxzndxe72 Normal0-15The [facility] GroupComment on above:Result Comment: The Troponin units of report have been changed to meet the Chest Pain Accreditation requirement, element EC5.M1l2. Troponin units are changed from pg/ml to ng/L. Also, the decimal is removed and results are in whole numbers. PERFORMED BY: [place] [address] PATHOLOGIST PERSONAL LINES INSURANCE ADVISOR RAMEZ MONTES M.D.Performed By: #### SCAN CBC, CK, HS TROP, BNP, PT, PTT ####[place] [id number] [facility] Troponin I.cardiac [Mass/volume] in Serum or Plasma by Detection limit <= 0.01 ng/Ordered By: Jorge L Cruz on 32-19-2086Krxrdaol I.cardiac DL <= 0.01 ng/mL [Mass/Vol]Troponin I.cardiac [Mass/volume] in Serum or Plasma by Detection limit <= 0.01 ng/0-15[facility] Medical CenterComment on above:The Troponin units of report have been changed to meet the Chest Pain Accreditation requirement, element EC5.M1l2. Troponin units are changed from pg/ml to ng/L. Also, the decimal is removed and results are in whole numbers.Urea nitrogen [Mass/volume] in Serum or PlasmaOrdered By: Jorge L Cruz on 05-42-4538Lxrm nitrogen [Mass/Vol]Urea nitrogen [Mass/volume] in Serum or Plasma [facility] Medical CenterWBC Auto (Bld) [#/Vol]Ordered By: Jorge L Cruz on 37-65-0086XTG (Bld) [#/Vol]Leukocytes [#/volume] in Blood by Automated count3.8-11.6FUniversity Hospitals Conneaut Medical CenterXR chest 2V*on 87-68-4416EK chest 2V*[facility] Main [place] [address] [place] [address] XRay Report Signed Patient: Lashaun Joaquin MR#: [id number] : 1940 Acct:[id number] Age/Sex: 84 / F ADM Date: 02/12/25 Loc: ER Room: Type: [facility] ER Attending Dr: Copies to: Jorge [...] Lyon Jr., D.OManuel02/12/2025 8:16 AM Dictation Location: [place] [address] Transcribed By: [facility] 02/12/25 0816 Dictated By: Epifanio Lyon Jr, DO 02/12/25 0816 Signed By: 02/12/25 0816[facility] Physician GroupaPTT in Platelet poor plasma by Coagulation assayOrdered By: Jorge L Cruz on 58-57-6250qIZN Coag (PPP) [Time]Activated partial thromboplastin time (aPTT) in platelet poor plasma by coagulation a25.1-36.5FUniversity Hospitals Conneaut Medical CenterComment on above:A hematocrit value greater than 55% may lead to inaccurate results in coagulation testing. Patientshaving hematocrit values >55% require a special collection tube for coagulation studies. Please contact the laboratory at [phone] for redraw instructions.US Thyroid glandon 68-55-[place]17[place] [address] Ultrasound Report Signed Patient: LASHAUN JOAQUIN MR#: [id number] : 1940 Acct:[id number] Age/Sex: 84 / F ADM Date: 02/10/25 Loc: US Attending Dr: Reyna Esparza M.D. Ordering Physician: Reyna Esparza M.D. Date of Service: 02/10/25 Procedure(s): US thyroid Accession Number(s): [id number] cc: Nathan Hathaway D.O.; Reyna Esparza M.D. The [address] [address] Patient Name: LASHAUN JOAQUIN MRN: [id number] date: 1940 Sex: F Assigned Patient Location: US Current Patient Location: US Accession/Order Number: [id number] Exam Date: 02/10/2025 11:24 Report Date: 02/10/2025 [...] Shelli Israel M.D.02/10/2025 11:33 AM Dictation Location: [place] [address] Electronically authenticated by: [id number] Y Date: 02/10/2025 11:33 Dictated By: Shelli Israel M.D. Signed By: 02/10/25 1136 DD/ 1133 TD/TT: Meat Lugger:TBHRadiology, Radiologist, - 02/10/2025 [place] [address] Ultrasound Report Signed Patient: LASHAUN JOAQUIN MR#: [id number] : 1940 Acct:[id number] Age/Sex: 84 / F ADM Date: 02/10/25 Loc: US Attending Dr: Reyna Esparza M.D. Ordering Physician: Reyna Esparza M.D. Date of Service: 02/10/25 Procedure(s): US thyroid Accession Number(s): [id number] cc: Nathan Hathaway D.O.; Reyna Esparza M.D. The [place] [id number] Patient Name: LASHAUN JOAQUIN MRN: [id number] date: 1940 Sex: F Assigned Patient Location: US Current Patient Location: US Accession/Order Number: [id number] Exam Date: 02/10/2025 11:24 Report Date: 02/10/2025 [...] Shelli Israel M.D.02/10/2025 11:33 AM Dictation Location: [place] [address] Electronically authenticated by: [id number] Y Date: 02/10/2025 11:33 Dictated By: Shelli Israel M.D. Signed By: 02/10/25 1136 DD/ 1133 TD/TT: Meat Lugger: PEREZ PatelRadiology Study observation (narrative)PEREZ Bergeron Thyroid glandOrdered By: Radiologist Radiology on 91-25-4538[employer] Work Phone: Estimated glomerular filtration rate (GFR) non- Americanon 34-28-4834FUJ/1.73 sq M.predicted among non-blacks MDRD (S/P/Bld) [Vol rate/Area]Estimated glomerular filtration rate (GFR) non- Low>=60 mL/min/1.73m 2FUniversity Hospitals Conneaut Medical CenterLaboratory - Chemistry and Chemistry - challengeon 33-19-9287Naataij [Mass/Vol]8.9 mg/dL8.5-10.1 [facility] Medical CenterChloride [Moles/Vol]106 mmol/W23-904JnfjxttauTrumbull Regional Medical CenterCO2 [Moles/Vol]28.0 mmol/L21.0-32.0[facility] Medical CenterCreatinine [Mass/Vol]1.42 mg/dLHigh0.55-1.02[facility] Medical CenterGFR/1.73 sq M.predicted MDRD (S/P/Bld) [Vol rate/Area]43 mL/min/{1.73_m2}Low>=60 mL/min/1.73m 2FUniversity Hospitals Conneaut Medical CenterGlucose [Mass/Vol]116 mg/lEDgko23-067BpmycovkqTrumbull Regional Medical CenterPotassium [Moles/Vol]3.9 mmol/L3.5-5.1FMetroHealth Main Campus Medical Centerodium [Moles/Vol] 145 mmol/F181-355KzkhuviflTrumbull Regional Medical CenterUrea nitrogen [Mass/Vol]21.0 mg/dLHigh7.0-18.0[facility] Medical CenterUrea nitrogen/Creatinine [Mass ratio]14.8 mg/mgKettering Health Springfielderum or plasma anion gap determinationon 62-30-1291Ggtna gap [Moles/Vol]Serum or plasma anion gap determinationTrumbull Regional Medical CenterLaboratory - Chemistry and Chemistry - challengeon 41-15-2350Uthgubbre Ql (U)NegativeTrumbull Regional Medical CenterGlucose (U) [Mass/Vol]NegativeTrumbull Regional Medical Center Ketones Ql (U)[facility] HospitalpH (U)5 [pH][facility] Springfieldpecific gravity (U) [Rel density]1.000Tr[facility]ull Regional Medical CenterUrobilinogen (U) [Mass/Vol]NegativeTrumbull Regional Medical CenterLaboratory - Specimen informationon 71-36-4916Dmrfcpnwun (U)clearTrumbull Regional Medical CenterColor (U)yellowTrumbull Regional Medical Center Laboratory - Urinalysison 92-76-9718Yyyupdqan esterase Test strip Ql (U)Negative [facility] CenterNitrite Ql (U)NegativeTrumbull Regional Medical CenterProtein Ql (U)0.2FUniversity Hospitals Conneaut Medical CenterNo Panel Informationon 46-90-7793Phfwj Occult Blood++[facility] Estimated glomerular filtration rate (GFR) non- Americanon 12-18-2024 GFR/1.73 sq M.predicted among non-blacks MDRD (S/P/Bld) [Vol rate/Area]Estimated glomerular filtration rate (GFR) non- AmericanLow>=60 mL/min/1.73m 2 [facility] CenterLaboratory - Chemistry and Chemistry - challengeon 92-61-3690Tiwdmbn [Mass/Vol]8.9 mg/dL8.5-10.1FUniversity Hospitals Conneaut Medical CenterChloride [Moles/Vol]105 mmol/F41-011SmqvfzmmxTrumbull Regional Medical CenterCO2 [Moles/Vol]30.4 mmol/L21.0-32.0[facility] Creatinine [Mass/Vol]1.57 mg/dLHigh0.55-1.02[facility] Free T4 [Mass/Vol]0.90 ng/dL0.76-1.46[facility] Medical CenterGFR/1.73 sq M.predicted MDRD (S/P/Bld) [Vol rate/Area]38 mL/min/{1.73_m2}Low>=60 mL/min/1.73m 2FUniversity Hospitals Conneaut Medical CenterGlucose [Mass/Vol]119 mg/dLHigh 74-106Tr[facility] Medical CenterPotassium [Moles/Vol]4.1 mmol/L3.5-5.1 [facility] Springfieldodium [Moles/Vol]143 mmol/D279-906NvfyjutddTrumbull Regional Medical CenterTSH Qn2.650 m[IU]/L0.358-3.740Tr[facility]ull Regional Medical CenterUrea nitrogen [Mass/Vol]28.0 mg/dLHigh7.0-18.0[facility] Medical CenterUrea nitrogen/Creatinine [Mass ratio]17.8 mg/mgKettering Health Springfielderum or plasma anion gap determinationon 95-84-0625Sknng gap [Moles/Vol] Serum or plasma anion gap determinationTrumbull Regional Medical CenterINR in Platelet poor plasma by Coagulation assayOrdered By: Nathan Hathaway on 11-17-2024 INR Coag (PPP) [Relative time]INR in Platelet poor plasma by Coagulation assay [facility] Medical CenterComment on above:INR Therapeutic Range A) Pre- and [...] [id number] Received: 11/17/24130 Status: SERENITY Rojas Num: [id number] Spec Type: Cytology Subm Dr: Seth Ley DO Tissues: A FNA SLIDES PATH (FNA THYROID) Procedures: -, DIFF QWIK/JOHN Hayden/4 Age/ Patient Sex Location Account Attending Physician Lashaun Joaquin 84/F [id number] Nathan Hathaway DO SPEC NUM: [id number] RECD: 11/17/24 STATUS: SERENITY ROJAS NUM: [id number] JED: 11/17/24- [facility] DR: Seth Ley DO ENTERED: 11/17/[address] [facility] [address]: Nathan Hathaway DO SPEC TYPE: Cytology DEPT: CNG ENTERED BY: [id number] RECV BY: [id number] ORDERED: -, DIFF QWIK/3, PAPSTN/4 ORDERED: -, DIFF QWIK/3, PAPSTN/4 Pathological Diagnosis Thyroid nodule, US-guided FNA: Satisfactory for evaluation. Benign (Eden category I). Clinical Information Thyroid Nodule,adrenal nodule, hypothyroidism Gross Description Received fixed in Cytolyt is 32 ml red hazy fixed fluid for cytology said to have been obtained as Thyroid. ThinPrep preparations are prepared for microscopic examination. Also received are 6 total smeared slides and a Veracyte vial stored at -20 for microscopic examination. (CC/ar) Immediate Evaluation Thyroid, FNA, immediate evaluation: Mostly macrophages and colloid; additional pass requested. 11/17/2024, 12:20 PM Specimen: [id number] Received: 11/17/24 Status: SERENITY Betsy Num: [id number] Spec Type: Cytology Subm Dr: Seth Ley DO Tissues: A FNA SLIDES PATH (FNA THYROID) Procedures: -, DIFF QWIK/3, PAPSTN/4 Patient: Lashaun Joaquin [id number] (Continued) Specimen: [id number] Received: 11/17/24 (Continued) Signed (signature on file) Lala Mast MD 11/18/24 0857 Specimen: [id number] Received: 11/17/24 Status: SERENITY Betsy Num: [id number] Spec Type: Cytology Subm Dr: Seth Ley DO Tissues: A FNA SLIDES PATH (FNA THYROID) Procedures: -, DIFF REENA/JOHN Hayden/4 Patient: Lashaun Joaquin [id number] (Continued) Specimen: [id number] Received: 11/17/24 (Continued) CPT Codes 27438, 67147 Specimen: [id number] Received: 11/17/24 Status: SERENITY Rojas Num: [id number] Spec Type: Cytology Subm Dr: Seth Ley DO Tissues: A FNA SLIDES PATH (FNA THYROID) Procedures: -, DIFF QWIK/3, PAPSTN/4 Patient: Lashaun Joaquin [id number] (Continued) Signed (signature on file) Lala Mast MD 11/18/24 0857 [facility]St. [facility] CenterPartial Thromboplastin Timeon 28-91-2592cUGX Coag (Bld) [Time]28.9 xAhmkpz92.1-36.5The [facility]ician GroupComment on above:Result Comment: A hematocrit value greater than 55% may lead to inaccurate results in coagulation testing. Patients having hematocrit values >55% require a special collection tube for coagulation studies. Please contact the laboratory at [phone] for redraw instructions. PERFORMED BY: [place] [address] PATHOLOGIST PERSONAL LINES INSURANCE ADVISOR RAMEZ MONTES M.D.Performed By: #### PTT, PT #### [place] [address] USAPlatelet Counton 94-37-4064Bbblgtuky (Bld) [#/Vol]253 10*3/hVJlhozh590-684Xie [facility] CenterComment on above:Result Comment: PERFORMED BY: [place] [address] PATHOLOGIST PERSONAL LINES INSURANCE ADVISOR RAMEZ MONTES M.D.Performed By: #### PLT #### [place] [address] USAPlatelets Auto (Bld) [#/Vol]Ordered By: Nathan Hathaway on 27-23-6902Npszkyqqd (Bld) [#/Vol]Platelets [#/volume] in Blood by Automated fgadr374-506HkoxgreruTrumbull Regional Medical CenterProthrombin Time INRon 11-17-2024 INR Coag (PPP) [Relative time]1.0 {INR}NormalThe [facility] Comment on above:Result Comment: INR [...] - 4.5Performed By: #### PTT, PT #### [facility] [address] [place] [address] USAPT Coag (PPP) [Time]11.9 sNormal9.0-12.9The [facility] GroupComment on above:Result Comment: A hematocrit value greater than 55% may lead to inaccurate results in coagulation testing. Patients having hematocrit values >55% require a special collection tube for coagulation studies. Please contact the laboratory at [phone] for redraw instructions.Performed By: #### PTT, PT #### [facility] [address] [place] [address] USAProthrombin time (PT)Ordered By: Nathan Hathaway on 31-31-6130OL Coag (PPP) [Time]Prothrombin time (PT)9.0-12.9[facility] Medical CenterComment on above:A hematocrit value greater than 55% may lead to inaccurate results in coagulation testing. Patientshaving hematocrit values >55% require a special collection tube for coagulation studies. Please contact the laboratory at [phone] for redraw instructions.US needle aspirationon 89-96-7185EN needle aspirationMERCY HEALTH CL[facility]ONT [facility] Main [place] [address] [place] [address] Ultrasound Report Signed Patient: Lashaun Joaquin MR#: [id number] : 1940 Acct:[id number] Age/Sex: 84 / F ADM Date: 11/17/24 Loc: Room: Type: [facility] Attending Dr: Nathan Hathaway DO Ordering [...] Seth Ley M.D.11/17/2024 12:41 PM Dictation Location: [facility]--16 Tech: Deja Ruel Transcribed By: LAURA 11/17/24 1241 Dictated By: Seth Ley DO 11/17/24 1159 Signed By: 11/17/24 1241[facility] Physician GroupaPTT in Platelet poor plasma by Coagulation assayOrdered By: Nathan Hathaway on 05-51-8954yCFT Coag (PPP) [Time] Activated partial thromboplastin time (aPTT) in platelet poor plasma by coagulation a25.1-36.5FUniversity Hospitals Conneaut Medical CenterComment on above:A hematocrit value greater than 55% may lead to inaccurate results in coagulation testing. Patientshaving hematocrit values >55% require a special collection tube for coagulation studies. Please contact the laboratory at [phone] for redraw instructions.Estimated glomerular filtration rate (GFR) non- Americanon 36-15-6184UJU/1.73 sq M.predicted among non-blacks MDRD (S/P/Bld) [Vol rate/Area]Estimated glomerular filtration rate (GFR) non- Low>=60 mL/min/1.73m 2FUniversity Hospitals Conneaut Medical CenterLaboratory - Chemistry and Chemistry - challengeon 50-82-0751Jllmypl [Mass/Vol]8.6 mg/dL8.5-10.1 [facility] CenterChloride [Moles/Vol]108 mmol/FNxmx39-759 [facility] CenterCO2 [Moles/Vol]27.0 mmol/L21.0-32.0[facility] CenterCreatinine [Mass/Vol]1.39 mg/dLHigh0.55-1.02[facility] Medical CenterFree T4 [Mass/Vol]0.80 ng/dL0.76-1.46[facility] CenterGFR/1.73 sq M.predicted MDRD (S/P/Bld) [Vol rate/Area]44 mL/min/{1.73_m2}Low>=60 mL/min/1.73m 2FUniversity Hospitals Conneaut Medical CenterGlucose [Mass/Vol]85 mg/jZ78-752OnxmpjpbcTrumbull Regional Medical CenterPotassium [Moles/Vol] 4.5 mmol/L3.5-5.1FMetroHealth Main Campus Medical Centerodium [Moles/Vol]144 mmol/L 136-145Tr[facility] Regional Medical CenterTSH Qn3.767 m[IU]/LHigh0.358-3.740 [facility] CenterUrea nitrogen [Mass/Vol]20.0 mg/dLHigh7.0-18.0 [facility] CenterUrea nitrogen/Creatinine [Mass ratio]14.4 mg/mg [facility] Springfielderum or plasma anion gap determinationon 25-97-1322Mxjyl gap [Moles/Vol]Serum or plasma anion gap determinationTrumbull Regional Medical CenterEstimated glomerular filtration rate (GFR) non- Americanon 52-01-3736HOI/1.73 sq M.predicted among non-blacks MDRD (S/P/Bld) [Vol rate/Area]39 mL/min/{1.73_m2}Low>=60[facility] Laboratory - Chemistry and Chemistry - challengeon 96-76-6227Twxrkko [Mass/Vol] 8.8 mg/dL8.5-10.1FUniversity Hospitals Conneaut Medical CenterChloride [Moles/Vol]106 mmol/L 98-107[facility] Medical CenterCO2 [Moles/Vol]30.8 mmol/L21.0-32.0 [facility] CenterCreatinine [Mass/Vol]1.30 mg/dLHigh0.55-1.02 [facility] CenterGFR/1.73 sq M.predicted MDRD (S/P/Bld) [Vol rate/Area]48 mL/min/{1.73_m2}Low>=60[facility] CenterGlucose [Mass/Vol]89 mg/wZ68-699IhbutaogwTrumbull Regional Medical CenterPotassium [Moles/Vol] 4.3 mmol/L3.5-5.1FMetroHealth Main Campus Medical Centerodium [Moles/Vol]143 mmol/L 136-145Tr[facility] Medical CenterUrea nitrogen [Mass/Vol]24.0 mg/dLHigh 7.0-18.0[facility] Medical CenterUrea nitrogen/Creatinine [Mass ratio] 18.5 mg/mgKettering Health Springfielderum or plasma anion gap determinationon 97-50-9732Ybxha gap [Moles/Vol]10.5 mmol/[facility] Community HospitalEstimated glomerular filtration rate (GFR) non- Americanon 08-88-8782ZEK/1.73 sq M.predicted among non-blacks MDRD (S/P/Bld) [Vol rate/Area]37 mL/min/{1.73_m2}Low>=60[facility] CenterLaboratory - Chemistry and Chemistry - challengeon 94-24-5597Daedenb [Mass/Vol]8.5 mg/dL 8.5-10.1FUniversity Hospitals Conneaut Medical CenterChloride [Moles/Vol]106 mmol/L98-107 [facility] CenterCO2 [Moles/Vol]28.7 mmol/L21.0-32.0[facility] CenterCreatinine [Mass/Vol]1.36 mg/dLHigh0.55-1.02[facility] CenterGFR/1.73 sq M.predicted MDRD (S/P/Bld) [Vol rate/Area]45 mL/min/{1.73_m2}Low>=60[facility] CenterGlucose [Mass/Vol]98 mg/wX35-937PhinaxijhTrumbull Regional Medical CenterPotassium [Moles/Vol]4.3 mmol/L 3.5-5.1FMetroHealth Main Campus Medical Centerodium [Moles/Vol]142 mmol/I384-171 [facility] CenterUrea nitrogen [Mass/Vol]26.0 mg/dLHigh7.0-18.0 [facility] CenterUrea nitrogen/Creatinine [Mass ratio]19.1 mg/mg [facility] Springfielderum or plasma anion gap determinationon 65-38-8195Dmbsk gap [Moles/Vol]11.6 mmol/[facility] HospitalNM [facility] Perfusion W stress and W radionuclide Rivka 22-33-7688Abtiyj Lexiscan Myoview cardiac perfusion stress test. No evidence of ischemia or myocardial infarction by perfusion imaging. Normal left ventricular systolic function, ejection fraction 88%. When compared previous study changes are noted. Previous study showed anterior wall ischemia which was not present during the study. Signed by: Faustino Zuniga 03/12/2024 4:34 PM Dictation workstation: [id number] By: Faustino Zuniga and Giannuzzi Michael STUDY: MYOCARDIAL PERFUSION STRESS TEST WITH LEXISCAN Performing facility: [facility], [address], [address], [place] [address] [facility] Provider: Holden Rosado RN, CREATIVE SERVICES WRITER PCP: Dr. Ksenia Hathaway Supervising provider: Anthony Perry DO, [facility] INDICATION: ASHD HISTORY: Gender: F; Age: 83 y/o ; Height: HT 165.1 cm cm; Weight: WT 88.905 kg kg. CAD; High Cholesterol; HTN; Fatigue; Quit smoking 44 years ago. Cardiac catheterization on 2022. PTCA on 2022. COMPARISON: Previous nuclear testing completed [id number] at [place]. ACCESSION NUMBER(S): [id number] ORDERING CLINICIAN: HOLDEN ROSADO TECHNIQUE: ONE DAY [...] PERFUSION STRESS TEST WITH LEXISCAN Performing facility: [facility], [address], [address], [place] [address] [facility] Provider: Holden Rosado RN, CREATIVE SERVICES WRITER PCP: Dr. Ksenia Hathaway Supervising provider: Anthony Perry DO, [facility] INDICATION: ASHD HISTORY: Gender: F; Age: 83 y/o ; Height: HT 165.1 cm cm; Weight: WT 88.905 kg kg. CAD; High Cholesterol; HTN; Fatigue; Quit smoking 44 years ago. Cardiac catheterization on 2022. PTCA on 2022. COMPARISON: Previous nuclear testing completed [id number] at [place]. ACCESSION NUMBER(S): [id number] ORDERING CLINICIAN: HOLDEN ROSADO TECHNIQUE: ONE DAY [...] Faustino Zuniga 03/12/2024 4:34 PM Dictation workstation: [id number] [facility] Work Phone: Radiology Study observation (narrative)[facility] Work Phone: NM Heart Perfusion W stress and W radionuclide IV Ordered By: Faustino Zuniga on 26-94-3445UcvkfhdcvyBucyrus Community Hospital Work Phone: Calcium [Mass/volume] in Serum or PlasmaOrdered By: Holden Rosado on 39-29-7991Iglpvvm [Mass/Vol]9.2 mg/dL8.6-10.3FUniversity Hospitals Conneaut Medical CenterCarbon dioxide, total [Moles/volume] in Serum or PlasmaOrdered By: Holden Rosado on 59-60-6499SR9 [Moles/Vol]32.1 mmol/LHigh21.0-31.0[facility] CenterChloride [Moles/volume] in Serum or PlasmaOrdered By: Holden Rosado on 55-34-7025Pyjlvabr [Moles/Vol]104 mmol/D89-145TldkchfbpTrumbull Regional Medical CenterCreatinine [Mass/volume] in Serum or PlasmaOrdered By: Holden Rosado on 94-81-8875Rhfrdkrpsm [Mass/Vol]1.36 mg/dLHigh0.60-1.20[facility] Medical CenterGlucose [Mass/volume] in Serum or PlasmaOrdered By: Holden Rosado on 29-85-4842Mtrikva [Mass/Vol]79 mg/aV58-480IyrnhzndnTrumbull Regional Medical Center Comment on above:ADA recommended reference rangeRandom Glucose Reference Range is dependent on time and content of last meal. Glucose of more than 200 mg/dL in a nonstressed, ambulatory subject supports the diagnosisof Diabetes Mellitus.No Panel InformationOrdered By: Holden Rosado on 47-46-9074Uzuwktenb GFR (CKD-EPI) 39.134 mL/MinTrumbull Regional Medical CenterPharmacy Creatinine Clearance (ChemN/AFUniversity Hospitals Conneaut Medical CenterPotassium [Moles/volume] in Serum or PlasmaOrdered By: Holden Rosado on 20-22-8815Urzliczjl [Moles/Vol]5.2 mmol/LHigh 3.5-5.1FMetroHealth Main Campus Medical Centererum or plasma anion gap determination Ordered By: Holden Rosado on 41-49-3298Llmmf gap [Moles/Vol]10.1 mmol/L6.0-15.0 [facility] Springfieldodium [Moles/volume] in Serum or PlasmaOrdered By: Holden Rosado on 53-96-2678Jfqeuo [Moles/Vol]141 mmol/P180-292XsybgbhgkTrumbull Regional Medical CenterUrea nitrogen [Mass/volume] in Serum or PlasmaOrdered By: Holden Rosado on 10-37-5573Cjcf nitrogen [Mass/Vol]26 mg/dLHigh7-25Tr[facility] Medical CenterBasophils Auto (Bld) [#/Vol]on 12-93-9765Mzdysrmkm (Bld) [#/Vol]0.0 10 3/uL0.0-0.1FUniversity Hospitals Conneaut Medical CenterBasophils/100 WBC Auto (Bld)on 09-52-0395Gahrcxdyp/100 WBC (Bld)0.8 %0.2-2.0[facility] CenterEosinophils/100 WBC Auto (Bld)on 05-84-6748Uyziabpuzaa/100 WBC (Bld)2.8 % 0.9-7.0[facility] CenterErythrocyte distribution width Auto (RBC) [Ratio]on 95-62-3246Xlespoefute distribution width (RBC) [Ratio]13.1 % 11.0-15.0[facility] CenterEstimated glomerular filtration rate (GFR) non- Americanon 17-40-1917REU/1.73 sq M.predicted among non-blacks MDRD (S/P/Bld) [Vol rate/Area]49 mL/min/{1.73_m2}>=60Tr[facility] Medical CenterGlobulin Calc (S) [Mass/Vol]on 49-49-5464Diyshuzx (S) [Mass/Vol]2.7 g/dL [facility] CenterHematocrit Auto (Bld) [Volume fraction]on 23-84-3994Mlbbyajbdm (Bld) [Volume fraction]29.2 %36.0-48.0[facility] CenterHemoglobin [Mass/volume] in Bloodon 86-12-4741Chbjzrqqho (Bld) [Mass/Vol]9.5 g/dL12.0-16.0[facility] CenterLaboratory - Chemistry and Chemistry - challengeon 93-15-0203Jwnopfr [Mass/Vol]2.9 g/dL 3.4-5.0[facility] CenterALP [Catalytic activity/Vol]44 U/L46-116 [facility] CenterALT [Catalytic activity/Vol]13 U/L14-59 [facility] CenterAST [Catalytic activity/Vol]14 U/L15-37 [facility] CenterBilirubin [Mass/Vol]0.6 mg/dL0.2-1.0[facility] CenterCalcium [Mass/Vol]8.9 mg/dL8.5-10.1FUniversity Hospitals Conneaut Medical CenterChloride [Moles/Vol]107 mmol/S61-883NyjkpzsmpTrumbull Regional Medical CenterCO2 [Moles/Vol]27.9 mmol/L21.0-32.0[facility] Creatinine [Mass/Vol]1.08 mg/dL0.55-1.02[facility] GFR/1.73 sq M.predicted MDRD (S/P/Bld) [Vol rate/Area]59 mL/min/{1.73_m2}>=60 [facility] CenterGlucose [Mass/Vol]83 mg/eH21-461XyghbroqtTrumbull Regional Medical CenterPotassium [Moles/Vol]3.8 mmol/L3.5-5.1FUniversity Hospitals Conneaut Medical CenterProtein [Mass/Vol]5.6 g/dL6.4-8.2FUniversity Hospitals Conneaut Medical Center Sodium [Moles/Vol]141 mmol/N472-498GrwsvwjtlTrumbull Regional Medical CenterUrea nitrogen [Mass/Vol]18.0 mg/dL7.0-18.0[facility] CenterUrea nitrogen/Creatinine [Mass ratio]16.7 mg/mgTrumbull Regional Medical Center Laboratory - Hematology and Cell countson 53-96-2288Pmsdqrak granulocytes/100 WBC (Bld)0.2 %0.0-0.5FUniversity Hospitals Conneaut Medical CenterLeukocytes [#/volume] corrected for nucleated erythrocytes in Blood by Automated counon 65-56-8443IJK corrected for nucl RBC Auto (Bld) [#/Vol]4.7 10 3/uL4.0-11.0[facility] CenterLymphocytes Auto (Bld) [#/Vol]on 14-72-4289Uiaqukvlbdt (Bld) [#/Vol]1.0 10 3/uL1.2-3.8[facility] CenterLymphocytes/100 WBC Auto (Bld)on 72-40-6552Jdmvtdrekbp/100 WBC (Bld)21.8 %20.5-60.0[facility] HospitalH Auto (RBC) [Entitic mass]on 38-54-7769ZVK (RBC) [Entitic mass]29.2 pg26.7-34.0[facility] CenterMCHC Auto (RBC) [Mass/Vol]on 35-79-6076TWHA (RBC) [Mass/Vol]32.5 g/dL29.9-35.2FUniversity Hospitals Conneaut Medical CenterMCV Auto (RBC) [Entitic vol]on 70-28-9971UTI (RBC) [Entitic vol] 89.8 fL81.0-99.0[facility] CenterMonocytes Auto (Bld) [#/Vol]on 41-32-8087Wppzbzdhr (Bld) [#/Vol]0.7 10 3/uL0.3-0.8[facility] CenterMonocytes/100 WBC Auto (Bld)on 08-54-1144Cyjjhkdaj/100 WBC (Bld)14.2 % 1.7-12.0[facility] CenterNeutrophils Auto (Bld) [#/Vol]on 68-66-2603Rovogkeoucl (Bld) [#/Vol]2.8 10 3/uL1.4-6.5FUniversity Hospitals Conneaut Medical CenterNeutrophils/100 WBC Auto (Bld)on 98-56-5543Wmypttxbumr/100 WBC (Bld)60.2 % 43.0-75.0[facility] CenterNo Panel Informationon 02-20-2024 Eosinophils # (Auto)0.1 10 3/uL0.0-0.7FUniversity Hospitals Conneaut Medical CenterImmature Granulocyte # (Auto)0.01 10 3/uL0.00-0.03[facility] Platelet mean volume Auto (Bld) [Entitic vol]on 45-01-9124Ltntnpez mean volume (Bld) [Entitic vol]10.5 fL9.5-13.5FUniversity Hospitals Conneaut Medical CenterPlatelets Auto (Bld) [#/Vol]on 83-03-2977Gxsdonyfx (Bld) [#/Vol]250 10 3/xH174-227 [facility] CenterRBC Auto (Bld) [#/Vol]on 35-08-3652PLA (Bld) [#/Vol]3.25 10 6/uL4.20-5.40[facility] Health Springfielderum or plasma albumin/globulin mass ratioon 37-58-2431Osqolzd/Globulin [Mass ratio]1.1 {ratio} [facility] Health Springfielderum or plasma anion gap determinationon 71-70-8129Bupea gap [Moles/Vol]9.9 mmol/LFUniversity Hospitals Conneaut Medical Center Basophils Auto (Bld) [#/Vol]on 95-04-8519Hgilpmkzk (Bld) [#/Vol]0.0 10 3/uL 0.0-0.1FUniversity Hospitals Conneaut Medical CenterBasophils/100 WBC Auto (Bld)on 42-11-9021Exvvfjvgy/100 WBC (Bld)0.8 %0.2-2.0[facility] Cholesterol in LDL Calc [Mass/Vol]on 75-14-9275Kxhonhkptcm in LDL [Mass/Vol] 100.4 mg/dLTrumbull Regional Medical CenterComment on above:<100 mg/dl CFFNFUL141-854 mg/dl NEAR OR ABOVE NCPIPOM941-597 mg/dl BORDERLINE OIZF081-283 mg/dl HIGH>190 mg/dl VERY HIGHCholesterol in VLDL Calc [Mass/Vol]on 02-19-2024 Cholesterol in VLDL [Mass/Vol]15.6 mg/dLTrumbull Regional Medical Center Eosinophils/100 WBC Auto (Bld)on 59-24-0738Aqdckoflkzv/100 WBC (Bld)1.9 %0.9-7.0 [facility] CenterErythrocyte distribution width Auto (RBC) [Ratio]on 51-83-0830Eqzndmqhowt distribution width (RBC) [Ratio]13.2 %11.0-15.0 [facility] CenterEstimated glomerular filtration rate (GFR) non- Americanon 76-50-8515BXI/1.73 sq M.predicted among non-blacks MDRD (S/P/Bld) [Vol rate/Area]44 mL/min/{1.73_m2}>=60[facility] CenterGlobulin Calc (S) [Mass/Vol]on 83-32-2804Fwvcwcnx (S) [Mass/Vol]2.8 g/dL [facility] CenterHematocrit Auto (Bld) [Volume fraction]on 07-57-4117Lkatclgwnc (Bld) [Volume fraction]31.2 %36.0-48.0[facility] CenterHemoglobin [Mass/volume] in Bloodon 81-40-5243Lqdykcegnh (Bld) [Mass/Vol]10.0 g/dL12.0-16.0[facility] CenterLaboratory - Chemistry and Chemistry - challengeon 54-00-0565Eekyyyw [Mass/Vol]3.2 g/dL 3.4-5.0[facility] CenterALP [Catalytic activity/Vol]49 U/L46-116 [facility] CenterALT [Catalytic activity/Vol]15 U/L14-59 [facility] CenterAST [Catalytic activity/Vol]15 U/L15-37 [facility] CenterBilirubin [Mass/Vol]0.5 mg/dL0.2-1.0[facility] CenterCalcium [Mass/Vol]9.4 mg/dL8.5-10.1FUniversity Hospitals Conneaut Medical CenterChloride [Moles/Vol]108 mmol/S54-611OpiwzeyfwTrumbull Regional Medical CenterCholesterol [Mass/Vol]158 mg/dL<=200[facility] Cholesterol in HDL [Mass/Vol]42 mg/qS41-96QyzsbpmoaTrumbull Regional Medical Center Comment on above:> or =60 mg/dl - LOW CARDIOVASCULAR RISK<40 mg/dl - HIGH CARDIOVASCULAR RISKCO2 [Moles/Vol]28.7 mmol/L21.0-32.0[facility] CenterCreatinine [Mass/Vol]1.18 mg/dL0.55-1.02[facility] GFR/1.73 sq M.predicted MDRD (S/P/Bld) [Vol rate/Area]53 mL/min/{1.73_m2}>=60 [facility] CenterGlucose [Mass/Vol]93 mg/gK75-357AfjkscoimTrumbull Regional Medical CenterPotassium [Moles/Vol]4.0 mmol/L3.5-5.1FUniversity Hospitals Conneaut Medical CenterProtein [Mass/Vol]6.0 g/dL6.4-8.2FUniversity Hospitals Conneaut Medical Center Sodium [Moles/Vol]145 mmol/O614-717JbfngfgujTrumbull Regional Medical CenterTriglyceride [Mass/Vol]78 mg/dL<=150Tr[facility] Medical CenterTSH Qn4.696 m[IU]/L 0.358-3.740Tr[facility] Medical CenterUrea nitrogen [Mass/Vol]20.0 mg/dL 7.0-18.0[facility] CenterUrea nitrogen/Creatinine [Mass ratio] 16.9 mg/mgTrumbull Regional Medical CenterLaboratory - Hematology and Cell countson 81-70-6407Tzrvzzwt granulocytes/100 WBC (Bld)0.6 %0.0-0.5FUniversity Hospitals Conneaut Medical CenterLeukocytes [#/volume] corrected for nucleated erythrocytes in Blood by Automated counon 32-78-7196JDA corrected for nucl RBC Auto (Bld) [#/Vol]5.3 10 3/uL4.0-11.0[facility] Lymphocytes Auto (Bld) [#/Vol]on 40-65-1864Qkjdidtxste (Bld) [#/Vol]1.1 10 3/uL 1.2-3.8[facility] CenterLymphocytes/100 WBC Auto (Bld)on 80-49-8405Ubcwdnunnit/100 WBC (Bld)21.3 %20.5-60.0[facility] CenterMCH Auto (RBC) [Entitic mass]on 80-91-0701LOB (RBC) [Entitic mass]29.6 pg 26.7-34.0[facility] CenterMCHC Auto (RBC) [Mass/Vol]on 99-83-8501HFQG (RBC) [Mass/Vol]32.1 g/dL29.9-35.2FUniversity Hospitals Conneaut Medical CenterMCV Auto (RBC) [Entitic vol]on 57-11-0096NUD (RBC) [Entitic vol]92.3 fL 81.0-99.0[facility] CenterMonocytes Auto (Bld) [#/Vol]on 63-00-3511Ocntdixen (Bld) [#/Vol]0.6 10 3/uL0.3-0.8[facility] CenterMonocytes/100 WBC Auto (Bld)on 16-15-8070Gbzukvgsp/100 WBC (Bld)11.1 % 1.7-12.0[facility] CenterNeutrophils Auto (Bld) [#/Vol]on 10-45-4043Yeicoalhigq (Bld) [#/Vol]3.4 10 3/uL1.4-6.5FUniversity Hospitals Conneaut Medical CenterNeutrophils/100 WBC Auto (Bld)on 80-22-6256Nparwlyykfp/100 WBC (Bld)64.3 % 43.0-75.0[facility] CenterNo Panel Informationon 02-19-2024 Eosinophils # (Auto)0.1 10 3/uL0.0-0.7FUniversity Hospitals Conneaut Medical CenterImmature Granulocyte # (Auto)0.03 10 3/uL0.00-0.03[facility] Platelet mean volume Auto (Bld) [Entitic vol]on 16-00-7925Tzylprws mean volume (Bld) [Entitic vol]10.4 fL9.5-13.5FUniversity Hospitals Conneaut Medical CenterPlatelets Auto (Bld) [#/Vol]on 91-75-9292Jheqchuxy (Bld) [#/Vol]262 10 3/dE887-317 [facility] CenterRBC Auto (Bld) [#/Vol]on 89-17-9066ASU (Bld) [#/Vol]3.38 10 6/uL4.20-5.40[facility] Health Springfielderum or plasma albumin/globulin mass ratioon 64-45-8892Wijxfnt/Globulin [Mass ratio]1.1 {ratio} [facility] Springfielderum or plasma anion gap determinationon 44-08-6246Jpekk gap [Moles/Vol]12.3 mmol/LFMetroHealth Main Campus Medical Centererum or plasma total cholesterol/high density lipoprotein (HDL) cholesterol mass rat on 82-47-6384Yjlkdgojsbi.total/Cholesterol in HDL [Mass ratio]3.8 {ratio} [facility] CenterComment on above:3.3 - 4.4 LOW RISK4.4 - 7.1 AVERAGE RISK7.1 - 11.0 MODERATE RISK>11.0 HIGH RISKBasophils Auto (Bld) [#/Vol] on 76-69-6553Ddrstuesv (Bld) [#/Vol]0.0 10 3/uL0.0-0.1FUniversity Hospitals Conneaut Medical CenterBasophils/100 WBC Auto (Bld)on 80-56-3677Ynhgtrafb/100 WBC (Bld)0.4 % 0.2-2.0[facility] CenterEosinophils/100 WBC Auto (Bld)on 25-72-7211Xrmlaaqcbpl/100 WBC (Bld)1.2 %0.9-7.0[facility] Erythrocyte distribution width Auto (RBC) [Ratio]on 64-79-0986Pwnrgdcffhv distribution width (RBC) [Ratio]13.2 %11.0-15.0[facility] Estimated glomerular filtration rate (GFR) non- Americanon 02-18-2024 GFR/1.73 sq M.predicted among non-blacks MDRD (S/P/Bld) [Vol rate/Area]34 mL/min/{1.73_m2}>=60[facility] CenterHematocrit Auto (Bld) [Volume fraction]on 86-21-3941Anjgtabgcn (Bld) [Volume fraction]31.7 %36.0-48.0 [facility] CenterHemoglobin [Mass/volume] in Bloodon 02-18-2024 Hemoglobin (Bld) [Mass/Vol]10.3 g/dL12.0-16.0[facility] Laboratory - Chemistry and Chemistry - challengeon 48-97-1540Cacdjcmet [Mass/Vol]2.3 mg/dL1.8-2.4FUniversity Hospitals Conneaut Medical CenterNatriuretic peptide B (Bld) [Mass/Vol]800.0 pg/mL<=1800.0[facility] CenterCalcium [Mass/Vol]9.0 mg/dL8.5-10.1FUniversity Hospitals Conneaut Medical CenterChloride [Moles/Vol] 106 mmol/Q35-833EklouxdomTrumbull Regional Medical CenterCO2 [Moles/Vol]30.4 mmol/L 21.0-32.0[facility] CenterCreatinine [Mass/Vol]1.46 mg/dL 0.55-1.02[facility] CenterGFR/1.73 sq M.predicted MDRD (S/P/Bld) [Vol rate/Area]42 mL/min/{1.73_m2}>=60[facility] CenterGlucose [Mass/Vol]102 mg/jB29-984JzrejffwdTrumbull Regional Medical CenterPotassium [Moles/Vol] 4.1 mmol/L3.5-5.1FMetroHealth Main Campus Medical Centerodium [Moles/Vol]144 mmol/L 136-145Tr[facility] CenterUrea nitrogen [Mass/Vol]21.0 mg/dL 7.0-18.0[facility] CenterUrea nitrogen/Creatinine [Mass ratio] 14.4 mg/mgTrumbull Regional Medical CenterLaboratory - Hematology and Cell countson 16-35-6465Ulaljshw granulocytes/100 WBC (Bld)0.7 %0.0-0.5FUniversity Hospitals Conneaut Medical CenterLeukocytes [#/volume] corrected for nucleated erythrocytes in Blood by Automated counon 36-22-9098VJI corrected for nucl RBC Auto (Bld) [#/Vol]6.8 10 3/uL4.0-11.0[facility] Lymphocytes Auto (Bld) [#/Vol]on 84-75-7487Bqiecipooob (Bld) [#/Vol]0.8 10 3/uL 1.2-3.8[facility] CenterLymphocytes/100 WBC Auto (Bld)on 31-98-8861Bvvtksisyud/100 WBC (Bld)11.2 %20.5-60.0[facility] HospitalH Auto (RBC) [Entitic mass]on 15-31-1990RHO (RBC) [Entitic mass]29.3 pg 26.7-34.0[facility] CenterMCHC Auto (RBC) [Mass/Vol]on 53-51-3731MJTR (RBC) [Mass/Vol]32.5 g/dL29.9-35.2FUniversity Hospitals Conneaut Medical CenterMCV Auto (RBC) [Entitic vol]on 53-81-8418OBL (RBC) [Entitic vol]90.1 fL 81.0-99.0[facility] CenterMonocytes Auto (Bld) [#/Vol]on 99-45-3183Ygnknjrpl (Bld) [#/Vol]0.6 10 3/uL0.3-0.8[facility] CenterMonocytes/100 WBC Auto (Bld)on 75-88-9292Qjebtdbaj/100 WBC (Bld)9.5 % 1.7-12.0[facility] CenterNeutrophils Auto (Bld) [#/Vol]on 80-50-6511Kulbuiupebx (Bld) [#/Vol]5.2 10 3/uL1.4-6.5FUniversity Hospitals Conneaut Medical CenterNeutrophils/100 WBC Auto (Bld)on 71-21-4798Lqhxwhczfci/100 WBC (Bld)77.0 % 43.0-75.0[facility] CenterNo Panel Informationon 02-18-2024 Troponin I High Aefnxvpgegi24.1 pg/mL4.0-51.3FUniversity Hospitals Conneaut Medical Center Comment on above:CUT-OFF POINTS HAVE BEEN [...] INFORMATION.Eosinophils # (Auto) 0.1 10 3/uL0.0-0.7FUniversity Hospitals Conneaut Medical CenterImmature Granulocyte # (Auto) 0.05 10 3/uL0.00-0.03[facility] CenterPlatelet mean volume Auto (Bld) [Entitic vol]on 94-70-3146Rjrzomzm mean volume (Bld) [Entitic vol]10.1 fL 9.5-13.5FUniversity Hospitals Conneaut Medical CenterPlatelets Auto (Bld) [#/Vol]on 01-71-3030Povijishs (Bld) [#/Vol]255 10 3/sJ912-298PvhcpudwpTrumbull Regional Medical CenterRBC Auto (Bld) [#/Vol]on 75-64-0239LVG (Bld) [#/Vol]3.52 10 6/uL4.20-5.40 [facility] Springfielderum or plasma anion gap determinationon 23-95-7033Mqcnp gap [Moles/Vol]11.7 mmol/LFUniversity Hospitals Conneaut Medical Center Basophils Auto (Bld) [#/Vol]on 46-63-0664Gkpohhcic (Bld) [#/Vol]0.1 10 3/uL 0.0-0.1FUniversity Hospitals Conneaut Medical CenterBasophils/100 WBC Auto (Bld)on 73-04-0500Cahbfktgs/100 WBC (Bld)1.1 %0.2-2.0[facility] Cholesterol in LDL Calc [Mass/Vol]on 79-90-1705Jpkurczrcad in LDL [Mass/Vol] 113.6 mg/dLTrumbull Regional Medical CenterComment on above:<100 mg/dl WJSGNZR606-592 mg/dl NEAR OR ABOVE FKYNQTG534-266 mg/dl BORDERLINE YZMN900-603 mg/dl HIGH>190 mg/dl VERY HIGHCholesterol in VLDL Calc [Mass/Vol]on 02-02-2024 Cholesterol in VLDL [Mass/Vol]10.4 mg/dLTrumbull Regional Medical Center Eosinophils/100 WBC Auto (Bld)on 78-26-1360Zntufzdbtfx/100 WBC (Bld)2.3 %0.9-7.0 [facility] CenterErythrocyte distribution width Auto (RBC) [Ratio]on 00-03-2280Yaactlqpbrf distribution width (RBC) [Ratio]13.1 %11.0-15.0 [facility] CenterEstimated glomerular filtration rate (GFR) non- Americanon 86-79-9116TFI/1.73 sq M.predicted among non-blacks MDRD (S/P/Bld) [Vol rate/Area]34 mL/min/{1.73_m2}>=60[facility] CenterGlobulin Calc (S) [Mass/Vol]on 16-64-7219Kkokuqfk (S) [Mass/Vol]3.0 g/dL [facility] CenterHematocrit Auto (Bld) [Volume fraction]on 61-69-7992Nnvoraifio (Bld) [Volume fraction]34.7 %36.0-48.0[facility] CenterHemoglobin [Mass/volume] in Bloodon 08-14-8898Biygnsunoe (Bld) [Mass/Vol]10.9 g/dL12.0-16.0[facility] CenterLaboratory - Chemistry and Chemistry - challengeon 13-01-3402Eumffun [Mass/Vol]3.4 g/dL 3.4-5.0[facility] CenterALP [Catalytic activity/Vol]52 U/L46-116 [facility] CenterALT [Catalytic activity/Vol]13 U/L14-59 [facility] CenterAST [Catalytic activity/Vol]14 U/L15-37 [facility] CenterBilirubin [Mass/Vol]0.3 mg/dL0.2-1.0[facility] CenterCalcium [Mass/Vol]9.3 mg/dL8.5-10.1FUniversity Hospitals Conneaut Medical CenterChloride [Moles/Vol]109 mmol/H96-147NekuaqxvwTrumbull Regional Medical CenterCholesterol [Mass/Vol]169 mg/dL<=200[facility] Cholesterol in HDL [Mass/Vol]45 mg/fJ46-17WixdblbimTrumbull Regional Medical Center Comment on above:> or =60 mg/dl - LOW CARDIOVASCULAR RISK<40 mg/dl - HIGH CARDIOVASCULAR RISKCO2 [Moles/Vol]29.8 mmol/L21.0-32.0[facility] CenterCreatinine [Mass/Vol]1.47 mg/dL0.55-1.02[facility] GFR/1.73 sq M.predicted MDRD (S/P/Bld) [Vol rate/Area]41 mL/min/{1.73_m2}>=60 [facility] CenterGlucose [Mass/Vol]104 mg/lU07-355NpyuwhhlhTrumbull Regional Medical CenterPotassium [Moles/Vol]4.9 mmol/L3.5-5.1FUniversity Hospitals Conneaut Medical CenterProtein [Mass/Vol]6.4 g/dL6.4-8.2FUniversity Hospitals Conneaut Medical Center Sodium [Moles/Vol]147 mmol/F633-625OvdahszgcTrumbull Regional Medical CenterTriglyceride [Mass/Vol]52 mg/dL<=150[facility] CenterTS Qn3.613 m[IU]/L 0.358-3.740Tr[facility] Medical CenterUrea nitrogen [Mass/Vol]24.0 mg/dL 7.0-18.0[facility] CenterUrea nitrogen/Creatinine [Mass ratio] 16.3 mg/mgTrumbull Regional Medical CenterLaboratory - Hematology and Cell countson 29-10-6888Gtgawheo granulocytes/100 WBC (Bld)0.4 %0.0-0.5FUniversity Hospitals Conneaut Medical CenterLeukocytes [#/volume] corrected for nucleated erythrocytes in Blood by Automated counon 79-31-5209CIZ corrected for nucl RBC Auto (Bld) [#/Vol]5.6 10 3/uL4.0-11.0[facility] Lymphocytes Auto (Bld) [#/Vol]on 02-21-7263Cgxhmiwpagr (Bld) [#/Vol]1.1 10 3/uL 1.2-3.8[facility] CenterLymphocytes/100 WBC Auto (Bld)on 48-81-7622Whdojclcdos/100 WBC (Bld)20.2 %20.5-60.0[facility] [place] Auto (RBC) [Entitic mass]on 23-16-6915TOA (RBC) [Entitic mass]29.8 pg 26.7-34.0[facility] Auto (RBC) [Mass/Vol]on 29-22-8304DINU (RBC) [Mass/Vol]31.4 g/dL29.9-35.2FUniversity Hospitals Conneaut Medical CenterMCV Auto (RBC) [Entitic vol]on 11-90-9062XKW (RBC) [Entitic vol]94.8 fL 81.0-99.0[facility] CenterMonocytes Auto (Bld) [#/Vol]on 88-40-8448Jnhxbazzw (Bld) [#/Vol]0.7 10 3/uL0.3-0.8[facility] CenterMonocytes/100 WBC Auto (Bld)on 11-27-6443Ppsdwaghd/100 WBC (Bld)11.7 % 1.7-12.0[facility] CenterNeutrophils Auto (Bld) [#/Vol]on 12-72-0429Lffanimwnux (Bld) [#/Vol]3.6 10 3/uL1.4-6.5FUniversity Hospitals Conneaut Medical CenterNeutrophils/100 WBC Auto (Bld)on 77-07-1258Oorzxiopztc/100 WBC (Bld)64.3 % 43.0-75.0[facility] CenterNo Panel Informationon 02-02-2024 Eosinophils # (Auto)0.1 10 3/uL0.0-0.7FUniversity Hospitals Conneaut Medical CenterImmature Granulocyte # (Auto)0.02 10 3/uL0.00-0.03[facility] Platelet mean volume Auto (Bld) [Entitic vol]on 26-31-9582Kppnbgda mean volume (Bld) [Entitic vol]10.6 fL9.5-13.5FUniversity Hospitals Conneaut Medical CenterPlatelets Auto (Bld) [#/Vol]on 96-70-8074Kgicwmuop (Bld) [#/Vol]253 10 3/bP438-338 [facility] CenterRBC Auto (Bld) [#/Vol]on 81-56-2458RAE (Bld) [#/Vol]3.66 10 6/uL4.20-5.40[facility] Springfielderum or plasma albumin/globulin mass ratioon 29-99-4202Idbbnuc/Globulin [Mass ratio]1.1 {ratio} [facility] Springfielderum or plasma anion gap determinationon 51-97-2173Synla gap [Moles/Vol]13.1 mmol/LFMetroHealth Main Campus Medical Centererum or plasma total cholesterol/high density lipoprotein (HDL) cholesterol mass rat on 62-22-8989Nalebdhriuj.total/Cholesterol in HDL [Mass ratio]3.8 {ratio} [facility] Medical CenterComment on above:3.3 - 4.4 LOW RISK4.4 - 7.1 AVERAGE RISK7.1 - 11.0 MODERATE RISK>11.0 HIGH RISKUA RANDOM W/MICROSCOPICon 34-45-0115Bvelgpr (U)CLEARCLEARValparaiso [facility] Other Color (U)DK YELLOWYELLOWValparaiso [facility] Other Ketones Ql (U)NegativeNEGATIVE mg/dLValparaiso [facility] Other Leukocyte esterase Test strip Ql (U)NegativeNEGATIVE [employer] Other pH (U)6.5 [pH]5.0-9.0[place] [facility] Other ua RANDOM W/MICROSCOPIC0-2 #/HPFAbnormalNONE SEEN #/HPFValparaiso [facility] Other ua RANDOM W/MICROSCOPIC5-10 #/HPFAbnormal0-2 #/HPF [place] [facility] Other ua RANDOM W/MICROSCOPICsee noteNocarondelet health [facility] Other ua RANDOM W/MICROSCOPIC1.0101.005-1.025[place] [facility] Other ua RANDOM W/MICROSCOPICNegativeNEGATIVEPhishMe Other ua RANDOM W/MICROSCOPICLARGEAbnormalNEGATIVETraveDoc [facility] Other ua RANDOM W/MICROSCOPICPositiveAbnormalNEGInfluxTraveDoc [facility] Other UA RANDOM W/MICROSCOPIC1.0 EU/dL0.2-1.0 EU/dLNocarondelet health [facility] Other UA RANDOM W/MICROSCOPICTRACE #/HPFAbnormalNONE SEEN #/HPFValparaiso [facility] Other UA RANDOM W/MICROSCOPICNONE SEENNONE SEENValparaiso [facility] Other ua RANDOM W/MICROSCOPICRARE #/LPFNONE/RARE #/LPFValparaiso [facility] Other UA RANDOM W/MICROSCOPICNone Seen #/HPFNone Seen #/HPF [facility] Other ua RANDOM W/MICROSCOPICNONE SEEN #/LPFNONE SEEN #/LPF [place] [facility] Other Urinalysis - DIPSTICKon 48-37-2803Mlruvutcxs (U)clear [place] [facility] Other Bilirubin Ql (U)NegativeValparaiso [facility] Other Color (U)light yellowValparaiso [facility] Other Glucose Ql (U)NegativeValparaiso [facility] Other Hemoglobin Ql (U)+++[employer] Other Ketones Ql (U)NegativeValparaiso [facility] Other Leukocyte esterase Test strip Ql (U)NegativeValparaiso [facility] Other Nitrite Ql (U)NegativeValparaiso [facility] Other pH (U)0.2 [pH][employer] Other Protein Ql (U)traceNocarondelet health [facility] Other Specific gravity (U) [Rel density]1.005[place] [facility] Other Urobilinogen (U) [Mass/Vol]off chartNocarondelet health [facility] Other Urinalysis - DIPSTICKNort [facility] Other esr Westergren method (Bld) [Velocity]on 61-73-7132LNO (Bld) [Velocity]119 mm/hHigh0 - 20 mm/hrSelect Medical Specialty Hospital - Cleveland-FairhillFERRITIN BLDon 46-93-0349Uvoxnnvn [Mass/Vol]160.0 ng/mL14.7 - 205.1 ng/mLCleveland Park Nicollet Methodist HospitalIron and Iron binding capacity panelon 30-56-8428Eows [Mass/Vol]45 ug/dL41 - 186 ug/dLSelect Medical Specialty Hospital - Cleveland-FairhillIron binding capacity [Mass/Vol]252 ug/dL232 - 386 ug/dL [facility]-FairhillIron/TIBC [Molar ratio]17.9 %15.0 - 57.0 %[facility] metabolic 2000 panelon 19-27-8474Fyvre gap [Moles/Vol]10 mmol/L9 - 18 mmol/L [facility]-FairhillCalcium [Mass/Vol]9.2 mg/dL8.5 - 10.2 mg/dLSelect Medical Specialty Hospital - [place]-[facility] Chloride [Moles/Vol]106 mmol/LHigh97 - 105 mmol/LCleveland ClinicCO2 [Moles/Vol] 27 mmol/L22 - 30 mmol/LCleveland Park Nicollet Methodist HospitalCreatinine [Mass/Vol]1.09 mg/dLHigh0.58 - 0.96 mg/dLSelect Medical Specialty Hospital - Cleveland-FairhillEstimated Glomerular Filtration Rate51 mL/min/1.73m Low>=60 mL/min/1.73mCleveland Park Nicollet Methodist HospitalGlucose [Mass/Vol]116 mg/hLTajx94 - 99 mg/dL [facility]-FairhillPotassium [Moles/Vol]4.3 mmol/L3.7 - 5.1 mmol/LCleveland [facility] Sodium [Moles/Vol]143 mmol/L136 - 144 mmol/LCleveland Park Nicollet Methodist HospitalUrea nitrogen [Mass/Vol]19 mg/dL7 - 21 mg/dLAultman Hospital W Auto Differential panel (Bld)on 51-95-6937Jwkiiecxs (Bld) [#/Vol]0.04 10*3/uL<0.11 k/uLSelect Medical Specialty Hospital - [place]-[facility]hill Basophils/100 WBC (Bld)0.8 %[facility]-FairhillDifferential cell count method Nom (Bld)AutoCleveland ClinicEosinophils (Bld) [#/Vol]0.14 10*3/uL<0.46 k/uL [facility]-FairhillEosinophils/100 WBC (Bld)2.9 %[facility]-FairhillErythrocyte distribution width (RBC) [Ratio]13.6 %11.5 - 15.0 %[facility]-FairhillHematocrit (Bld) [Volume fraction]28.8 %Low36.0 - 46.0 %[facility]-FairhillHemoglobin (Bld) [Mass/Vol]9.2 g/dLLow11.5 - 15.5 g/dLSelect Medical Specialty Hospital - Cleveland-FairhillImmature granulocytes (Bld) [#/Vol]<0.10 k/uLSelect Medical Specialty Hospital - Cleveland-FairhillImmature granulocytes/100 WBC (Bld)0.4 % [facility]-FairhillLymphocytes (Bld) [#/Vol]0.83 10*3/uLLow1.00 - 4.00 k/uL [facility]-FairhillLymphocytes/100 WBC (Bld)17.4 %[facility] CompanyH (RBC) [Entitic mass]29.6 pg26.0 - 34.0 pgClevelEssentia HealthHC (RBC) [Mass/Vol]31.9 g/dL30.5 - 36.0 g/dLRegency Hospital CompanyV (RBC) [Entitic vol]92.6 fL80.0 - 100.0 fLCleveland ClinicMonocytes (Bld) [#/Vol]0.40 10*3/uL<0.87 k/uLSelect Medical Specialty Hospital - [place]-[facility] Monocytes/100 WBC (Bld)8.4 %[facility]-FairhillNeutrophils (Bld) [#/Vol]3.35 10*3/uL1.45 - 7.50 k/uLSelect Medical Specialty Hospital - Cleveland-FairhillNeutrophils/100 WBC (Bld)70.1 %[facility]-FairhillNucleated RBC (Bld) [#/Vol]<0.01 k/uLSelect Medical Specialty Hospital - Cleveland-FairhillNucleated RBC/100 WBC (Bld) [Ratio]0.0 /100 WBCSelect Medical Specialty Hospital - Cleveland-FairhillPlatelet mean volume (Bld) [Entitic vol]10.2 fL9.0 - 12.7 fLCleveland ClinicPlatelets (Bld) [#/Vol]274 10*3/uL150 - 400 k/uLSelect Medical Specialty Hospital - Cleveland-FairhillRBC (Bld) [#/Vol]3.11 10*6/uLLow3.90 - 5.20 m/uL [facility]-FairhillWBC (Bld) [#/Vol]4.78 10*3/uL3.70 - 11.00 k/uLSelect Medical Specialty Hospital - [place]-Fairhill RETIC COUNTon 25-26-3016Cqobzpbwuiarq (Bld) [#/Vol]0.68275 10*3/uL0.018 - 0.100 M/uLSelect Medical Specialty Hospital - Cleveland-FairhillReticulocytes (Bld) [#/Vol]on 63-70-8387Bvqwspuymvukb/100 RBC (Bld)2.0 %0.4 - 2.0 %[facility]-FairhillBasophils Auto (Bld) [#/Vol]Ordered By: Lj Ryan on 38-16-5474Ujflmwyam (Bld) [#/Vol]0.0 10*3/uL0.0-0.2FUniversity Hospitals Conneaut Medical CenterBasophils/100 WBC Auto (Bld)Ordered By: Lj Ryan on 89-55-3244Kswilyezr/100 WBC (Bld)0.7 %.[facility] CenterCalcium [Mass/volume] in Serum or PlasmaOrdered By: Lj Ryan on 17-96-2983Jepcgmk [Mass/Vol]8.9 mg/dL8.6-10.3FUniversity Hospitals Conneaut Medical CenterCarbon dioxide, total [Moles/volume] in Serum or PlasmaOrdered By: Lj Ryan on 28-03-0653HA1 [Moles/Vol]30.5 mmol/L21.0-31.0[facility] CenterChloride [Moles/volume] in Serum or PlasmaOrdered By: Lj Ryan on 81-02-7617Kjylvict [Moles/Vol]103 mmol/W19-079YffjehfuxTrumbull Regional Medical CenterCreatinine [Mass/volume] in Serum or PlasmaOrdered By: Lj Ryan on 51-86-6414Paersphvxh [Mass/Vol]1.37 mg/dL0.60-1.20[facility] CenterEosinophils Auto (Bld) [#/Vol]Ordered By: Lj Ryan on 69-61-0552Udipdyxvjwa (Bld) [#/Vol]0.1 10*3/uL0.0-0.45[facility] CenterEosinophils/100 WBC Auto (Bld) Ordered By: Lj Ryan on 72-00-7442Latejnregtl/100 WBC (Bld)1.9 %.[facility] CenterErythrocyte distribution width Auto (RBC) [Ratio]Ordered By: Lj Ryan on 86-75-7022Ykjmegjitwq distribution width (RBC) [Ratio]14.1 % 11.9-15.3FUniversity Hospitals Conneaut Medical CenterGlucose [Mass/volume] in Serum or PlasmaOrdered By: Lj Ryan on 29-88-8881Qmllwcs [Mass/Vol]94 mg/jH68-475 [facility] CenterComment on above:ADA recommended reference rangeRandom Glucose Reference Range is dependent on time and content of last meal. Glucose of more than 200 mg/dL in a nonstressed, ambulatory subject supports the diagnosisof Diabetes Mellitus.Hematocrit Auto (Bld) [Volume fraction]Ordered By: Lj Ryan on 65-65-2089Glwnzzlqkm (Bld) [Volume fraction]28.2 %34.0-46.4FUniversity Hospitals Conneaut Medical CenterHemoglobin [Mass/volume] in BloodOrdered By: Lj Ryan on 29-86-5250Vzjprfrrzj (Bld) [Mass/Vol]9.7 g/dL11.8-15.4FUniversity Hospitals Conneaut Medical CenterLeukocytes [#/volume] corrected for nucleated erythrocytes in Blood by Automated coun Ordered By: Lj Ryan on 72-31-8531TGT corrected for nucl RBC Auto (Bld) [#/Vol]6.0 10*3/uL3.8-11.6FUniversity Hospitals Conneaut Medical CenterLymphocytes Auto (Bld) [#/Vol]Ordered By: Lj Ryan on 35-14-1661Zkbslzzakne (Bld) [#/Vol]0.9 10*3/uL1.00-4.8[facility] CenterLymphocytes/100 WBC Auto (Bld) Ordered By: Lj Ryan on 33-21-7585Bvnctijdsiv/100 WBC (Bld)15.1 %.[facility] HospitalH Auto (RBC) [Entitic mass]Ordered By: Lj Ryan on 95-59-7856FYQ (RBC) [Entitic mass]30.2 pg24.7-34.3FUniversity Hospitals Conneaut Medical CenterMCHC Auto (RBC) [Mass/Vol]Ordered By: Lj Ryan on 73-44-2753TQLV (RBC) [Mass/Vol]34.4 g/dL32.0-35.0[facility] CenterMCV Auto (RBC) [Entitic vol]Ordered By: Lj Ryan on 06-81-8207FVF (RBC) [Entitic vol]87.7 oY98-208AcrrtdudiTrumbull Regional Medical CenterMagnesium [Mass/volume] in Serum or PlasmaOrdered By: Lj Ryan on 03-47-6040Muvlkkqzz [Mass/Vol]2.1 mg/dL1.9-2.7 [facility] CenterMonocytes Auto (Bld) [#/Vol]Ordered By: Lj Ryan on 19-90-8518Dqontrlqn (Bld) [#/Vol]0.5 10*3/uL0.0-0.8[facility] CenterMonocytes/100 WBC Auto (Bld)Ordered By: Lj Ryan on 05-18-2023 Monocytes/100 WBC (Bld)8.7 %.[facility] CenterNeutrophils Auto (Bld) [#/Vol]Ordered By: Lj Ryan on 46-60-3055Mexlgirqbno (Bld) [#/Vol]4.4 10*3/uL1.8-7.7FUniversity Hospitals Conneaut Medical CenterNeutrophils/100 WBC Auto (Bld) Ordered By: Lj Ryan on 25-87-8839Twvhxvlibsz/100 WBC (Bld)73.6 %.[facility] CenterNo Panel InformationOrdered By: Lj Ryan on 53-78-9267Weulmhyfh GFR (CKD-EPI)39.034 mL/MinTrumbull Regional Medical Center Pharmacy Creatinine Clearance (Chem38.04[facility] Nucleated erythrocytes [Presence] in Blood by Automated countOrdered By: Lj Ryan on 92-85-7332Djggzodri RBC Auto Ql (Bld)0.1 /100{WBC}0-0.5FUniversity Hospitals Conneaut Medical CenterPhosphate [Mass/volume] in Serum or PlasmaOrdered By: Lj Ryan on 50-30-3474Zpzbcqhpz [Mass/Vol]5.3 mg/dL3.7-7.2FUniversity Hospitals Conneaut Medical CenterPlatelet mean volume Auto (Bld) [Entitic vol]Ordered By: Lj Ryan on 88-46-9998Afysrlre mean volume (Bld) [Entitic vol]7.8 fL6.3-10.7 [facility] CenterPlatelets Auto (Bld) [#/Vol]Ordered By: Lj Ryan on 41-27-3782Mpkjsgsdo (Bld) [#/Vol]314 10*3/cZ957-307XaziddjswTrumbull Regional Medical CenterPotassium [Moles/volume] in Serum or PlasmaOrdered By: Lj Ryan on 28-13-9871Cqtyufqkg [Moles/Vol]4.0 mmol/L3.5-5.1FUniversity Hospitals Conneaut Medical CenterRBC Auto (Bld) [#/Vol]Ordered By: Lj Ryan on 10-85-0786ZPA (Bld) [#/Vol]3.21 10*6/uL3.60-5.00[facility] Springfielderum or plasma anion gap determinationOrdered By: Lj Ryan on 40-79-7918Niywz gap [Moles/Vol]12.5 mmol/L6.0-15.0[facility] Springfieldodium [Moles/volume] in Serum or PlasmaOrdered By: Lj Ryan on 77-01-5625Fsffzo [Moles/Vol]142 mmol/E455-432GmbmsrwmfTrumbull Regional Medical CenterUrea nitrogen [Mass/volume] in Serum or PlasmaOrdered By: Lj Ryan on 33-93-6579Uzbj nitrogen [Mass/Vol]21 mg/dL7-25[facility] CenterWBC Auto (Bld) [#/Vol]Ordered By: Lj Ryan on 03-31-6862QMB (Bld) [#/Vol]6.0 10*3/uL 3.8-11.6FUniversity Hospitals Conneaut Medical CenterAlanine aminotransferase [Enzymatic activity/volume] in Serum or PlasmaOrdered By: Fernando Ch on 12-31-0483MAR [Catalytic activity/Vol]14 U/L7-52[facility] CenterAlbumin [Mass/volume] in Serum or Plasma by Bromocresol green (BCG) dye binding metho Ordered By: Fernando Ch on 51-97-8744Dakboix BCG dye [Mass/Vol]4.0 g/dL3.5-5.7 [facility] CenterAlkaline phosphatase [Enzymatic activity/volume] in Serum or PlasmaOrdered By: Fernando Ch on 66-29-0728GKM [Catalytic activity/Vol]44 U/A27-013UsajvyrqoTrumbull Regional Medical CenterAspartate aminotransferase [Enzymatic activity/volume] in Serum or PlasmaOrdered By: Fernando Ch on 37-80-4824DUQ [Catalytic activity/Vol]16 U/T25-56VbasoaxeqTrumbull Regional Medical CenterBilirubin.total [Mass/volume] in Serum or PlasmaOrdered By: Fernando Ch on 50-87-9098Nsngpgkqk [Mass/Vol]0.7 mg/dL0.3-1.0[facility] CenterCreatine kinase [Enzymatic activity/volume] in Serum or Plasma Ordered By: Fernando Ch on 23-76-1160AW [Catalytic activity/Vol]49 U/L30-223 [facility] CenterGlobulin Calc (S) [Mass/Vol]Ordered By: Fernando Ch on 26-37-1100Olcowpvy (S) [Mass/Vol]2.9 g/dLTrumbull Regional Medical CenterLaboratory - CoagulationOrdered By: Fernando Ch on 75-45-5869ND Coag (PPP) [Time]12.5 s9.0-12.9[facility] CenterMonocyte distribution width [Entitic volume] in Blood by AutomatedOrdered By: Fernando Ch on 81-20-2506Uncappfn distribution width Auto (Bld) [Entitic vol]22.37 %0.00-20.00 [facility] CenterComment on above:For adults in ED, MDW > 20.0 may be associated with a higher risk of sepsis during the first 12 hrs of hospital admissionNatriuretic peptide B [Mass/Vol]Ordered By: Fernando Ch on 83-36-0643Dfdkymkvzrt peptide B (Bld) [Mass/Vol]450.0 pg/mL5-100[facility] CenterPlatelet poor plasma international normalized ratio (INR) by coagulation assay (relatOrdered By: Fernando Ch on 16-67-0415IPK Coag (PPP) [Relative time]1.1 {INR}[facility] CenterComment on above: INR Therapeutic Range A) Pre- [...] By: Fernando Ch on 05-17-2023 Protein [Mass/Vol]6.9 g/dL6.4-8.9[facility] Springfielderum or plasma albumin/globulin mass ratioOrdered By: Fernando Ch on 05-17-2023 Albumin/Globulin [Mass ratio]1.4 {ratio}[facility] Troponin I.cardiac [Mass/volume] in Serum or Plasma by Detection limit <= 0.01 ng/Ordered By: Fernando Ch on 92-85-8991Cnlitmzn I.cardiac DL <= 0.01 ng/mL [Mass/Vol]10.2 pg/mL0.0-15.0[facility] CenterActivated partial thromboplastin time (aPTT) in platelet poor plasma by coagulation aOrdered By: Jonna Perry on 59-75-9689uYWU Coag (PPP) [Time]32.0 s25.1-36.5FUniversity Hospitals Conneaut Medical CenterBand form neutrophils/100 WBC Manual cnt (Bld)Ordered By: Jonna Perry on 01-39-4298Ngta form neutrophils/100 WBC (Bld)4 %0-5FUniversity Hospitals Conneaut Medical CenterBasophils Auto (Bld) [#/Vol]Ordered By: Jonna Perry on 03-08-2023 Basophils (Bld) [#/Vol]N/[facility] HospitalBasophils/100 WBC Auto (Bld)Ordered By: Jonna Perry on 33-16-0625Vjfbzmybu/100 WBC (Bld)NSt. John of God HospitalBasophils/100 WBC Manual cnt (Bld)Ordered By: Jonna Perry on 65-16-3093Fjtjuryhz/100 WBC (Bld)0 %0-2FUniversity Hospitals Conneaut Medical Center Carbon dioxide, total [Moles/volume] in Serum or PlasmaOrdered By: Jonna Perry on 33-68-2051PR2 [Moles/Vol]33.1 mmol/L21.0-31.0[facility] Chloride [Moles/volume] in Serum or PlasmaOrdered By: Jonna Perry on 03-08-2023 Chloride [Moles/Vol]104 mmol/J69-274MkxmefuguTrumbull Regional Medical CenterCholesterol [Mass/volume] in Serum or PlasmaOrdered By: Jonna Perry on 58-00-4060Qmlnmhbmkps [Mass/Vol]151 mg/pU625-179FtcdkdkfdTrumbull Regional Medical CenterComment on above:Chol less than 200 mg/dl low riskChol 201-239 mg/dl borderline riskChol 240 mg/dl and greater high riskCholesterol in LDL Calc [Mass/Vol]Ordered By: Jonna Perry on 76-44-3527Bgqeuyynazw in LDL [Mass/Vol]100 mg/dL0-100[facility] CenterComment on above:LDL ATP III CLASSIFICATIONLDL less than 100 mg/dL OptimalLDL 100-129 mg/dL Near or above zkiuqgbSVS084-487 mg/dL Borderline highLDL 160-189 mg/dL HighLDL greater than 189 mg/dL Very highCholesterol in VLDL Calc [Mass/Vol]Ordered By: Jonna Perry on 06-29-8868Mvxxlcvhfwo in VLDL [Mass/Vol]13 mg/dLTrumbull Regional Medical CenterCreatinine [Mass/volume] in Serum or PlasmaOrdered By: Jonna Perry on 47-32-0289Iatkigicem [Mass/Vol]1.14 mg/dL0.60-1.20[facility] CenterEosinophils Auto (Bld) [#/Vol] Ordered By: Jonna Perry on 03-58-4991Iljrjflqpmm (Bld) [#/Vol]N/[facility] HospitalEosinophils/100 WBC Auto (Bld)Ordered By: Jonna Perry on 26-98-8893Ndyzqjjwqbs/100 WBC (Bld)N/[facility] Eosinophils/100 WBC Manual cnt (Bld)Ordered By: Jonna Perry on 03-08-2023 Eosinophils/100 WBC (Bld)2 %1-3FUniversity Hospitals Conneaut Medical CenterErythrocyte distribution width Auto (RBC) [Ratio]Ordered By: Jonna Perry on 03-08-2023 Erythrocyte distribution width (RBC) [Ratio]14.1 %11.9-15.3FUniversity Hospitals Conneaut Medical CenterHematocrit Auto (Bld) [Volume fraction]Ordered By: Jonna Perry on 35-97-0465Ycjtolfnif (Bld) [Volume fraction]30.7 %34.0-46.4FUniversity Hospitals Conneaut Medical CenterHemoglobin [Mass/volume] in BloodOrdered By: Jonna Perry on 44-32-7120Ffbpesumqe (Bld) [Mass/Vol]10.3 g/dL11.8-15.4FUniversity Hospitals Conneaut Medical CenterLaboratory - Chemistry and Chemistry - challengeon 03-08-2023 Cholesterol [Mass/Vol]151\S\737Pkmvck267-594YR-LsemtSt. Mary'S Medical Center 250 DO Work Phone: Comment on above:Chol less than 200 mg/dl low risk Chol 201-239 mg/dl borderline risk Chol 240 mg/dl and greater high risk Cholesterol in LDL [Mass/Vol]100\S\406Nabrar8-625PK-UccunSt. Mary'S Medical Center 250 DO Work Phone: Comment on above:LDL ATP III CLASSIFICATION LDL less than 100 mg/dL Optimal LDL 100-129 mg/dL Near or above optimal LDL 130-159 mg/dL Borderline high LDL 160-189 mg/dL High LDL greater than 189 mg/dL Very high Laboratory - CoagulationOrdered By: Jonna Perry on 70-61-4084AZ Coag (PPP) [Time] 12.2 s9.0-12.9[facility] CenterLeukocytes [#/volume] corrected for nucleated erythrocytes in Blood by Automated counOrdered By: Jonna Perry on 76-29-6707SVE corrected for nucl RBC Auto (Bld) [#/Vol]6.2 10*3/uL3.8-11.6 [facility] CenterLymphocytes Auto (Bld) [#/Vol]Ordered By: Jonna Perry on 58-36-6584Atlrnjrgrun (Bld) [#/Vol]N/[facility] HospitalLymphocytes/100 WBC Auto (Bld)Ordered By: Jonna Perry on 03-08-2023 Lymphocytes/100 WBC (Bld)N/[facility] HospitalLymphocytes/100 WBC Manual cnt (Bld)Ordered By: Jonna Perry on 29-85-8101Nityryllskd/100 WBC (Bld)16 %18-42Newark HospitalH Auto (RBC) [Entitic mass]Ordered By: Jonna Perry on 40-22-5545CVR (RBC) [Entitic mass]29.0 pg24.7-34.3FUniversity Hospitals Conneaut Medical CenterMCHC Auto (RBC) [Mass/Vol]Ordered By: Jonna Perry on 86-66-7975MFFA (RBC) [Mass/Vol]33.6 g/dL32.0-35.0[facility] CenterMCV Auto (RBC) [Entitic vol]Ordered By: Jonna Perry on 42-80-0650GZW (RBC) [Entitic vol]86.2 uI44-437BfyblwzunTrumbull Regional Medical CenterMetamyelocytes/100 WBC Manual cnt (Bld)Ordered By: Jonna Perry on 17-64-6109Ajfwbaiqbcegbw/100 WBC (Bld)1 %0-0[facility] CenterMonocytes Auto (Bld) [#/Vol]Ordered By: Jonna Perry on 15-11-7522Vgeyzacof (Bld) [#/Vol]N/[facility] HospitalMonocytes/100 WBC Auto (Bld)Ordered By: Jonna Perry on 03-08-2023 Monocytes/100 WBC (Bld)N/[facility] HospitalMonocytes/100 WBC Manual cnt (Bld)Ordered By: Jonna Perry on 54-05-7283Zlkhojvep/100 WBC (Bld)3 % -[facility] CenterNeutrophils Auto (Bld) [#/Vol]Ordered By: Jonna Perry on 22-22-9533Ikcxrpfrqea (Bld) [#/Vol]N/[facility] HospitalNeutrophils/100 WBC Auto (Bld)Ordered By: Jonna Perry on 03-08-2023 Neutrophils/100 WBC (Bld)N/[facility] HospitalNo Panel InformationOrdered By: Jonna Perry on 57-81-7075Qsiwwlrqk GFR (CKD-EPI)48.665 mL/MinTrumbull Regional Medical CenterPharmacy Creatinine Clearance (ChemN/A [facility] CenterNo Panel Informationon 33-03-346569.0\S\32.0 Vprhzi77.1-36.5MP-[facility] 250 DO Work Phone: Comment on above:PERFORMED BY:[place] [id number] [address] [place], [place] [phone] MEDICAL DIRECTORJAMAAL MO M.D.1.1\S\1.1NormalMP-[facility] 250 DO Work Phone: Comment [...] patients with mechanical heart valves: 3 - 4.512.2\S\12.4Nfnyhs6.0-12.9MP-[facility] 250 DO Work Phone: [phone]\S\9.2Guinkj6.3-10.7MP-[facility] 250 DO Work Phone: [phone]\S\33.1above high omzkprgzk16.0-31.0MP-[facility] 250 DO Work Phone: [phone]\S\041Hwjmav04-535PM-[place] [facility] 250 DO Work Phone: [phone]\S\5.6Xkcngx2.5-5.1MP-[facility] 250 DO Work Phone: [phone]\S\204Ypsjip612-761IL-Qqmpf [facility] 250 DO Work Phone: [phone]\S\83Ancmfb0-64KR-Fexmd [facility] 250 DO Work Phone: [phone]\S\48.665NormalMP-[facility] 250 DO Work Phone: [phone]\S\1.36Kskqbt4.60-1.20MP-[facility] 250 DO Work Phone: [phone]\S\4.0Normal<5.0MP-[facility] 250 DO Work Phone: Comment on above:PERFORMED BY:[id number] [place], [place] [phone] MEDICAL DIRECTORJAMAAL MO M.D.13\S\13NormalMP-[facility] 250 DO Work Phone: [phone]\S\76Tlhrqu8-766MR-Vcuzv [facility] 250 DO Work Phone: Comment on above:TRIG ATP III CLASSIFICATION TRIG less than 150 mg/dL Normal TRIG 150-199 mg/dL Borderline high NXDN805-973 mg/dL High TRIG greater than 500 mg/dL Very high Standard traceable to the Center for Disease Conrtrol and Prevention (CDC) test method.38\S\94Hhlrhc61-23DR-Dmktq [facility] 250 DO Work Phone: Comment on above:HDL CHOL ATP-III CLASSIFICATION Cardiovascular Risk HDL > or equal to 60 mg/dL LOW HDL < 40 mg/dL HIGH74\S\74 above high mbosrtsds84-16GP-Dplny [facility] 250 DO Work Phone: [phone]\S\731Leviaf315-845AF-Wjmrv [facility] 250 DO Work Phone: [phone]\S\14.8Ileuil34.9-15.3MP-[facility] 250 DO Work Phone: [phone]\S\33.0Hbrbdb90.0-35.0MP-[facility] 250 DO Work Phone: [phone]\S\29.9Ybiihb69.7-34.3MP-[facility] 250 DO Work Phone: [phone]\S\1above high znpnevhxy3-0AX-Wmuiy [facility] [place] 250 DO Work Phone: [phone]\S\9Dopczm3-9LC-Gvcti [facility] 250 DO Work Phone: [phone]\S\1Zwovzx4-9GI-Qoudn [facility] 250 DO Work Phone: [phone]\S\0Sxwobx3-89EO-Ctdwf [facility] 250 DO Work Phone: [phone]\S\16below low xzjokzzpv16-07LA-Tfwhw [facility] [place] 250 DO Work Phone: [phone]\S\0Wqjrjc1-1UJ-Vccqo [facility] 250 DO Work Phone: AltbsgElqwcmKN-Aeddr [facility] 250 DO Work Phone: [phone] on above:PERFORMED BY:[place] [id number] [place], [place] [id number] MEDICAL DIRECTORJAMAAL MO M.D.NormalNormalNormalMP-[facility] 250 DO Work Phone: [phone]\S\86.5Kqcvfo59-455IK-Uaxdd [facility] 250 DO Work Phone: [phone]\S\30.7below low vaqadlbbj05.0-46.4MP-[facility] 250 DO Work Phone: [phone]\S\10.3below low mithuukpb88.8-15.4MP-[facility] 250 DO Work Phone: 1440)[id number]\S\3.56below low threshold3.60-5.00[facility] 250 DO Work Phone: [phone]\S\8.2Sddmlu8.8-11.6[facility] 250 DO Work Phone: [phone]\S\6.5Rmnchj1.8-11.6MP-[facility] 250 DO Work Phone: Nucleated erythrocytes [Presence] in Blood by Automated countOrdered By: Jonna Perry on 04-28-7942Kpxjsjprp RBC Auto Ql (Bld)N/A [facility] CenterOvalocyte detectionOrdered By: Jonna Perry on 49-72-0075Pqqcylhgkb LM Ql (Bld)SlightTrumbull Regional Medical CenterPlatelet adequacy [Presence] in Blood by Light microscopyOrdered By: Jonna Perry on 14-05-6622Ufpzqltbj LM Ql (Bld)NormalNoProMedica Memorial Hospital Platelet mean volume Auto (Bld) [Entitic vol]Ordered By: Jonna Perry on 03-08-2023 Platelet mean volume (Bld) [Entitic vol]9.0 fL6.3-10.7FUniversity Hospitals Conneaut Medical CenterPlatelet morphology finding [Identifier] in BloodOrdered By: Jonna Perry on 75-72-4851Lhqufapt morphology finding Nom (Bld)N/AFUniversity Hospitals Conneaut Medical CenterPlatelet poor plasma international normalized ratio (INR) by coagulation assay (relatOrdered By: Jonna Perry on 35-40-1111XOR Coag (PPP) [Relative time]1.1 {INR}[facility] CenterComment on above:INR Therapeutic Range A) Pre- and [...] Auto (Bld) [#/Vol]Ordered By: Jonna Perry on 33-14-3274Mdqdhvotn (Bld) [#/Vol]276 10*3/eG284-316RkiwsnsqnTrumbull Regional Medical CenterPlatelets Large [Presence] in Blood by Light microscopyOrdered By: Jonna Perry on 92-50-8687Chwrnwwzb Large LM Ql (Bld)[facility] CenterPoikilocytosis [Presence] in Blood by Light microscopyOrdered By: Jonna Perry on 92-13-2419Zgypqzuyxizvpp LM Ql (Bld)[facility] Medical CenterPotassium [Moles/volume] in Serum or PlasmaOrdered By: Jonna Perry on 98-78-2210Vvfractzx [Moles/Vol]5.1 mmol/L 3.5-5.1FUniversity Hospitals Conneaut Medical CenterRBC Auto (Bld) [#/Vol]Ordered By: Jonna Perry on 97-27-4282DFR (Bld) [#/Vol]3.56 10*6/uL3.60-5.00[facility] CenterRB morphologyOrdered By: Jonna Perry on 16-93-9951IUG morphology finding Nom (Bld)N/AFMetroHealth Main Campus Medical Centeregmented neutrophils/100 WBC Manual cnt (Bld)Ordered By: Jonna Perry on 02-72-3633Dyglnbrph neutrophils/100 WBC (Bld)74 %50-70[facility] Springfielderum or plasma anion gap determinationOrdered By: Jonna Perry on 21-71-6640Cbljj gap [Moles/Vol]9.0 mmol/L 6.0-15.0[facility]tering Health Springfielderum or plasma high density lipoprotein (HDL) cholesterol measurementOrdered By: Jonna Perry on 03-08-2023 Cholesterol in HDL [Mass/Vol]38 mg/kF58-46CmksdirwkTrumbull Regional Medical Center Comment on above:HDL CHOL ATP-III CLASSIFICATION Cardiovascular RiskHDL > or equal to 60 mg/dL LOWHDL < 40 mg/dL HIGHSerum or plasma total cholesterol/high density lipoprotein (HDL) cholesterol mass ratOrdered By: Jonna Perry on 88-67-8125Givdjkclpxp.total/Cholesterol in HDL [Mass ratio]4.0 {ratio}<5.0 [facility] Springfieldodium [Moles/volume] in Serum or PlasmaOrdered By: Jonna Perry on 94-86-4792Zeesmy [Moles/Vol]141 mmol/F911-974HaefaktkkTrumbull Regional Medical CenterTriglyceride [Mass/volume] in Serum or PlasmaOrdered By: Jonna Perry on 84-51-8270Silgohdjjonu [Mass/Vol]67 mg/dL0-149Tr[facility] Medical CenterComment on above:TRIG ATP III CLASSIFICATIONTRIG less than 150 mg/dL NormalTRIG 150-199 mg/dL Borderline highTRIG 200-500 mg/dL High TRIG greater than 500 mg/dL Very highStandard traceable to the Center for Disease Co nrtrol and Prevention (CDC) test method.Urea nitrogen [Mass/volume] in Serum or PlasmaOrdered By: Jonna Perry on 35-81-7045Vyll nitrogen [Mass/Vol]21 mg/dL7-25 [facility] CenterWBC Auto (Bld) [#/Vol]Ordered By: Jonna Perry on 21-40-5826OBR (Bld) [#/Vol]8.6 10*3/uL3.8-11.6FUniversity Hospitals Conneaut Medical Center Office Visit (Cardiology)on 16-73-6850Rpbvmp-up visitDiagnoses/Problems Assessed Class 1 obesity with body [...] associated with accelerated hypertension, was admitted [facility], diuresed approximately 14 pounds with diuretics. [...] negative for complaint. Vitals Vital Signs Recorded: 97Zfp5621 10:14AMRecorded: 11Fzn9323 10:04AM Rronhchr257, RUE, Toeeejk55 (more content not included)...NormalUH Touchworks Tobacco Screening.on 32-64-3457Youlg depression screening assessmentNoSwedish Medical Center Ballard [facility] 250 DO Work Phone: Fall risk assessmenta) No falls within the last year [facility] [employer] 250 DO Work Phone: Tobacco use status CPHSb) No[facility] 250 DO Work Phone: cbc AUTO DIFFon 22-23-3044MQUQ #0.0 103/ulNormal 0.0-0.1The [facility] HospitalComment on above:Performed By: #### CBC #### [facility] [address] [address] [address] Jose David ShanksBasophils/100 WBC (Bld)0.5 %Normal0.2-2.0[facility] Comment on above:Performed By: #### CBC #### [facility] [address] [place] [address] Dr. Jose David Devries #0.1 103/ulNormal0.0-0.7The [facility] HospitalComment on above: Performed By: #### CBC #### [facility] [address] [place] [address] Dr. Jose David Vickersosinophils/100 WBC (Bld)1.2 %Normal0.9-7.0[facility] Comment on above:Performed By: #### CBC #### [facility] [address] [place] [address] Dr. Jose David Vickersrythrocyte distribution width (RBC) [Ratio]13.2 %Blfbfg29.0-15.0 [facility] HospitalComment on above:Performed By: #### CBC #### [facility] [address] [place] [address] Dr. Jose David ShanksHematocrit (Bld) [Volume fraction]33.9 %Critically low36.0-48.0 [facility] HospitalComment on above:Performed By: #### CBC #### [facility] [address] [place] [address] Dr. Jose David ShanksHemoglobin (Bld) [Mass/Vol]11.0 g/dLCritically low12.0-16.0[facility] Butler HospitalComment on above:Performed By: #### CBC #### [facility] [address] [place] [address] Dr. Jose David Guerrero #0.03 10e3/ulNormal0.00-0.03The [facility] HospitalComment on above:Performed By: #### CBC #### [facility] [address] [address] [address] Jose David Guerrero %0.5 %Normal0.0-0.5The [facility] HospitalComment on above: Performed By: #### CBC #### [facility] [address] [address] [address] Jose David Rolon #0.8 103/ulCritically low1.2-3.8The [facility] Comment on above:Performed By: #### CBC #### [facility] [address] [place] [address] Dr. Jose David Anthonyhocytes/100 WBC (Bld)13.7 %Critically low20.5-60.0The [facility] HospitalComment on above:Performed By: #### CBC #### [facility] [address] [place] [address] Dr. Jose David Donovan DIFF REQNONormalThe [facility] HospitalComment on above: Performed By: #### CBC #### [facility] [address] [place] [address] Dr. Jose David Andino (RBC) [Entitic mass]28.9 chQffzcm81.7-34.0The [facility] HospitalComment on above:Performed By: #### CBC #### [facility] [address] [place] [address] Dr. Jose David Turner (RBC) [Mass/Vol]32.4 g/uHQqespl74.9-35.2The [facility] HospitalComment on above:Performed By: #### CBC #### [facility] [address] [place] [address] Dr. Jose David Moctezuma (RBC) [Entitic vol]89.0 dYDtldgg71.0-99.0The [facility] HospitalComment on above:Performed By: #### CBC #### [facility] [address] [place] [address] Dr. Yilan ChangMONO #0.5 103/ulNormal0.3-0.8The [facility] HospitalComment on above:Performed By: #### CBC #### [facility] [address] [place] [address] Dr. Jose David Olivoocytes/100 WBC (Bld)8.2 %Normal1.7-12.0The [facility] Comment on above:Performed By: #### CBC #### [facility] [address] [place] [address] Dr. Jose David Mix #4.3 103/ulNormal1.4-6.5The [facility] HospitalComment on above:Performed By: #### CBC #### [facility] [address] [place] [address] Dr. Jose David Herndonutrophils/100 WBC (Bld)75.9 %Critically high43.0-75.0The [facility] HospitalComment on above:Performed By: #### CBC #### [facility] [address] [place] [address] Dr. Jose David Carmichaellet mean volume (Bld) [Entitic vol]10.1 fLNormal9.5-13.5The [facility] HospitalComment on above:Performed By: #### CBC #### [facility] [address] [place] [address] Dr. Jose David WardT279 103/gzLobebc157-980Knd [facility] HospitalComment on above: Performed By: #### CBC #### [facility] [address] [place] [address] Dr. Jose David ShanksRBC3.81 106/ulCritically low4.20-5.40The [facility] HospitalComment on above:Performed By: #### CBC #### [facility] [address] [place] [address] Dr. Jose David ShanksWBC5.7 103/ulNormal4.0-11.0The [facility] HospitalComment on above: Performed By: #### CBC #### [facility] [address] [place] [address] Dr. Jose David Sullivan 58-64-8156Qpzjxuef [Mass/Vol]180.0 ng/mLNormal 8.0-252.0The [facility] HospitalComment on above:Performed By: #### CBC #### [facility] [address] [address] [address] Jose David Helm AND TIBCon 03-01-2023% KLQACPVXLT73.6 %NormalThe [facility] HospitalComment on above:Performed By: #### CBC #### [facility] [address] [address] [address] Jose David Helm [Mass/Vol]61.0 ug/dUXruoiv17.0-170.0The [facility] Comment on above:Performed By: #### CBC #### [facility] [address] [place] [address] Dr. Jose David FangC RINOIX766.0 ug/gHLmjpia787.0-450.0The [facility] Comment on above:Performed By: #### CBC #### [facility] [address] [place] [address] Dr. Jose David Villanueva STRESS/REST MULTIon 72-31-5159XF STRESS/REST MULTIPatient: LASHAUN JOAQUIN Exam Date: 03/01/2023 : 1940 Gender:F Ordering : DR NATHAN HATHAWAY D.O. Admission #: [id number] Family : Order #: [id number] CLICK HERE TO VIEW EXAM RADIOLOGY REPORT [...] STUDY: PERFUSION DEFECT: LOCATION: Mid-anterior. Apical anterior. [place]. SIZE: Medium (3-4 segments). SEVERITY: Moderate. TYPE: [...] by: William Dominguez MD on 03/01/2023 at 14:54[facility] HospitalPROF CHEM 8 (BAS METB)on 28-13-5444Croou gap [Moles/Vol]8.8 mmol/LNormalTrihealth Bethesda Butler HospitalComment on above:Performed By: #### LACT #### [facility] [address] [place] [address] Dr. Jose David ShanksCalcium [Mass/Vol]9.0 mg/dLNormal8.5-10.1[facility] Comment on above:Performed By: #### LACT #### [facility] [address] [place] [address] Dr. Jose David ShanksChloride [Moles/Vol]106 mmol/RPxeqhr07-046DumTrihealth Bethesda Butler Hospital Comment on above:Performed By: #### LACT #### [facility] [address] [place] [address] Dr. Jose David ShanksCO2 [Moles/Vol]31.0 mmol/HFdivnk03.0-32.0[facility] Comment on above:Performed By: #### LACT #### [facility] [address] [place] [address] Dr. Jose David ShanksCreatinine [Mass/Vol]1.18 mg/dLCritically high0.55-1.02[facility] HospitalComment on above:Performed By: #### LACT #### [facility] [address] [place] [address] Dr. Main ChangEGFR-AF DXQKPAOL60 mL/min/1.31n4Qstefyzzkx low>=60The [facility] HospitalComment on above:Performed By: #### LACT #### [facility] [address] [address] [address] Jose David VickersGFR-NON AF PHZESHXP52 mL/min/1.14d6Ffdncdkxll low>=60The [facility] HospitalComment on above:Performed By: #### LACT #### [facility] [address] [address] [address] Jose David ShanksGlucose [Mass/Vol]98 mg/vOVkltwg54-236Tco [facility] Comment on above:Performed By: #### LACT #### [facility] [address] [address] [address] Jose David ShanksPotassium [Moles/Vol]4.8 mmol/LNormal3.5-5.1[facility] Comment on above:Performed By: #### LACT #### [facility] [address] [address] [address] Jose David ShanksSodium [Moles/Vol]141 mmol/KRidwsr748-346PeyTrihealth Bethesda Butler Hospital Comment on above:Performed By: #### LACT #### [facility] [address] [address] [address] Jose David ShanksUrea nitrogen [Mass/Vol]16.0 mg/dLNormal7.0-18.0[facility] HospitalComment on above:Performed By: #### LACT #### [facility] [address] [address] [address] Jose David Rubio nitrogen/Creatinine [Mass ratio]13.6 mg/mgNormalThe [facility] HospitalComment on above:Performed By: #### LACT #### [facility] [address] [address] [address] Jose David ShanksRETICULOCYTEon 84-37-8280UYOZW2.51 %Normal0.60-3.10The [facility] HospitalComment on above:Performed By: #### CBC #### [facility] [address] [address] [address] Jose David Mohan B12 AND FOLATEon 55-36-5100Igmoeptob (Vitamin B12) [Mass/Vol] 1406.0 pg/mLCritically axui433.0-986.0The [facility] HospitalComment on above: Performed By: #### CBC #### [facility] [address] [place] [address] Dr. Jose David ShanksFOLATE19.00 ng/mLNormal8.60-58.90The [facility] HospitalComment on above:Performed By: #### CBC #### [facility] [address] [place] [address] Dr. Jose David AllenC AUTO DIFFon 19-88-1418DDZX #0.0 103/ulNormal0.0-0.1The [facility] HospitalComment on above:Performed By: #### CBC #### [facility] [address] [place] [address] Dr. Jose David ShanksBasophils/100 WBC (Bld)0.6 %Normal0.2-2.0The [facility] Comment on above:Performed By: #### CBC #### [facility] [address] [place] [address] Dr. Jose David Devries #0.1 103/ulNormal0.0-0.7The [facility] HospitalComment on above: Performed By: #### CBC #### [facility] [address] [place] [address] Dr. Jose David Vickersosinophils/100 WBC (Bld)2.7 %Normal0.9-7.0The [facility] Comment on above:Performed By: #### CBC #### [facility] [address] [place] [address] Dr. Jose David Vickersrythrocyte distribution width (RBC) [Ratio]13.5 %Oniiwn05.0-15.0 The [facility] HospitalComment on above:Performed By: #### CBC #### [facility] [address] [place] [address] Dr. Jose David ShanksHematocrit (Bld) [Volume fraction]30.0 %Critically low36.0-48.0 The [facility] HospitalComment on above:Performed By: #### CBC #### [facility] [address] [address] [address] Jose David ShanksHemoglobin (Bld) [Mass/Vol]10.0 g/dLCritically low12.0-16.0The [facility] HospitalComment on above:Performed By: #### CBC #### [facility] [address] [place] [address] Dr. Jose David Guerrero #0.02 10e3/ulNormal0.00-0.03The [facility] HospitalComment on above:Performed By: #### CBC #### [facility] [address] [place] [address] Dr. Jose David Guerrero %0.4 %Normal0.0-0.5The [facility] HospitalComment on above: Performed By: #### CBC #### [facility] [address] [place] [address] Dr. Jose David Rolon #0.9 103/ulCritically low1.2-3.8The [facility] Comment on above:Performed By: #### CBC #### [facility] [address] [place] [address] Dr. Jose David Anthonyhocytes/100 WBC (Bld)19.3 %Critically low20.5-60.0The [facility] HospitalComment on above:Performed By: #### CBC #### [facility] [address] [place] [address] Dr. Jose David MazariegosUAL DIFF REQNONormalThe [facility] HospitalComment on above: Performed By: #### CBC #### [facility] [address] [place] [address] Dr. Jose David Turner (RBC) [Entitic mass]29.3 ifMtndmv23.7-34.0The [facility] HospitalComment on above:Performed By: #### CBC #### [facility] [address] [place] [address] Dr. Jose David Turner (RBC) [Mass/Vol]33.3 g/kTMnevuk36.9-35.2The [facility] HospitalComment on above:Performed By: #### CBC #### [facility] [address] [address] [address] Jose David TurnerV (RBC) [Entitic vol]88.0 iZKynenm76.0-99.0The [facility] HospitalComment on above:Performed By: #### CBC #### [facility] [address] [address] [address] Jose David Horton #0.4 103/ulNormal0.3-0.8The [facility] HospitalComment on above:Performed By: #### CBC #### [facility] [address] [place] [address] Dr. Jose David Olivoocytes/100 WBC (Bld)8.3 %Normal1.7-12.0The [facility] Comment on above:Performed By: #### CBC #### [facility] [address] [place] [address] Dr. Jose David Mix #3.3 103/ulNormal1.4-6.5The [facility] HospitalComment on above:Performed By: #### CBC #### [facility] [address] [place] [address] Dr. Jose David Herndonutrophils/100 WBC (Bld)68.7 %Edeaii40.0-75.0The St. Rita's Hospitalment on above:Performed By: #### CBC #### [facility] [address] [place] [address] Dr. Jose David Carmichaellet mean volume (Bld) [Entitic vol]9.9 fLNormal9.5-13.5The [facility] HospitalComment on above:Performed By: #### CBC #### [facility] [address] [place] [address] Dr. Jose David ShanksPLT259 103/scLfvaha292-313Ouv [facility] HospitalComment on above: Performed By: #### CBC #### [facility] [address] [place] [address] Dr. Jose David ShanksRBC3.41 106/ulCritically low4.20-5.40The [facility] HospitalComment on above:Performed By: #### CBC #### [facility] [address] [address] [address] Jose David ShanksWBC4.8 103/ulNormal4.0-11.0The [facility] HospitalComment on above: Performed By: #### CBC #### [facility] [address] [address] [address] Jose David ShanksPROF CHEM 8 (BAS METB)on 66-27-4705Uqnin gap [Moles/Vol]11.7 mmol/LNormalThe [facility] HospitalComment on above:Performed By: #### LACT #### [facility] [address] [address] [address] Jose David ShanksCalcium [Mass/Vol]8.6 mg/dLNormal8.5-10.1The [facility] Comment on above:Performed By: #### LACT #### [facility] [address] [place] [address] Dr. Jose David ShanksChloride [Moles/Vol]107 mmol/YBpjroe81-193Qgc [facility] Comment on above:Performed By: #### LACT #### [facility] [address] [address] [address] Jose David ShanksCO2 [Moles/Vol]30.9 mmol/IQefheo38.0-32.0The [facility] Comment on above:Performed By: #### LACT #### [facility] [address] [address] [address] Jose David ShanksCreatinine [Mass/Vol]1.04 mg/dLCritically high0.55-1.02The St. Rita's Hospitalment on above:Performed By: #### LACT #### [facility] [address] [address] [address] Jose David VickersGFR-AF DUTCH>60Normal>=60The [facility] HospitalComment on above:Performed By: #### LACT #### [facility] [address] [place] [address] Dr. Jose David VickersGFR-NON AF CMDQPIQB44 mL/min/1.91z6Midgmhquts low>=60The [facility] HospitalComment on above:Performed By: #### LACT #### [facility] [address] [address] [address] Jose David ShanksGlucose [Mass/Vol]97 mg/oUHjeneq10-917Bja [facility] Comment on above:Performed By: #### LACT #### [facility] [address] [address] [address] Jose David ShanksPotassium [Moles/Vol]3.6 mmol/LNormal3.5-5.1[facility] Comment on above:Performed By: #### LACT #### [facility] [address] [address] [address] Jose David ShanksSodium [Moles/Vol]146 mmol/LCritically aszq043-721Spe [facility] HospitalComment on above:Performed By: #### LACT #### [facility] [address] [address] [address] Jose David ShanksUrea nitrogen [Mass/Vol]17.0 mg/dLNormal7.0-18.0The [facility] HospitalComment on above:Performed By: #### LACT #### [facility] [address] [address] [address] Jose David Rubio nitrogen/Creatinine [Mass ratio]16.3 mg/mgNormalThe [facility] HospitalComment on above:Performed By: #### LACT #### [facility] [address] [place] [address] Dr. Jose David ShanksXR CHEST 2 Von 33-03-3237OV CHEST 2 VHISTORY: 81-ufgf-fwyomv referred for shortness of breath. COMPARISON: 02-08-2023. [...] Electronically authenticated by: EDWARD MENA Date: 2023-02-09 15:56[facility] HospitalBNPon 58-32-5005Tmesratnavv peptide B (Bld) [Mass/Vol]1007.0 pg/mLNormal<=1,800.0[facility] HospitalComment on above:Performed By: #### BNP #### [facility] [address] [place] [address] Dr. Jose David Tian TALI 3-6on 07-61-1152CU [Catalytic activity/Vol]29 U/L Cgjulc72-745Yqo [facility] HospitalComment on above:Performed By: #### CMREP #### [facility] [address] [place] [address] Dr. Jose David Jacinto.MB [Mass/Vol]0.90 ng/mLNormal<=3.60[facility] Comment on above:Performed By: #### CMREP #### [facility] [address] [place] [address] Dr. Jose David JamesOP69.4 pg/mLCritically high4.0-51.3The [facility] Comment on above:Result Comment: CUT-OFF POINTS HAVE BEEN ESTABLISHED BASED ON THE FOURTH UNIVERSAL DEFINITIONS OF MYOCARDIAL INFARCTION. THE UPPER REFERENCE LIMIT (URL) OF TROPONIN, DEFINED THE 99TH PERCENTILE OF cTnI DISTRIBUTION IN A REFERENCE POPULATION, HAS BEEN CONFIRMED THE DECISION THRESHOLD FOR [place] DIAGNOSIS.Performed By: #### CMREP #### [facility] [address] [place] [address] Dr. Jose David Jacinto [Catalytic activity/Vol]23 U/LCritically fnt85-451BalTrihealth Bethesda Butler HospitalComment on above:Performed By: #### CMREP #### [facility] [address] [place] [address] Dr. Jose David Jacinto.MB [Mass/Vol]ng/mLNormal<=3.60The [facility] HospitalComment on above:Performed By: #### CMREP #### [facility] [address] [place] [address] Dr. Jose David JamesOP72.0 pg/mLCritically high4.0-51.3TShel[facility] Comment on above:Result Comment: CUT-OFF POINTS HAVE BEEN ESTABLISHED BASED ON THE FOURTH UNIVERSAL DEFINITIONS OF MYOCARDIAL INFARCTION. THE UPPER REFERENCE LIMIT (URL) OF TROPONIN, DEFINED THE 99TH PERCENTILE OF cTnI DISTRIBUTION IN A REFERENCE POPULATION, HAS BEEN CONFIRMED THE DECISION THRESHOLD FOR [place] DIAGNOSIS.Performed By: #### CMREP #### [facility] [address] [place] [address] Dr. Jose David Tian TALI ADMITon 15-36-9262ZU [Catalytic activity/Vol]31 U/L Vywnnp31-904NcwTrihealth Bethesda Butler HospitalComment on above:Performed By: #### CMADM, BMP #### [facility] [address] [place] [address] Dr. Jose David Jacinto.MB [Mass/Vol]ng/mLNormal<=3.60The [facility] HospitalComment on above:Performed By: #### CMADM, BMP #### [facility] [address] [place] [address] Dr. Jose David JamesOP26.3 pg/mLNormal4.0-51.3The [facility] HospitalComment on above:Result Comment: CUT-OFF POINTS HAVE BEEN ESTABLISHED BASED ON THE FOURTH UNIVERSAL DEFINITIONS OF MYOCARDIAL INFARCTION. THE UPPER REFERENCE LIMIT (URL) OF TROPONIN, DEFINED THE 99TH PERCENTILE OF cTnI DISTRIBUTION IN A REFERENCE POPULATION, HAS BEEN CONFIRMED THE DECISION THRESHOLD FOR [place] DIAGNOSIS.Performed By: #### CMADM, BMP #### [facility] [address] [place] [address] Dr. Jose David RenO52 ng/mLNormal9-82The [facility] County HospitalComment on above: Performed By: #### CMADM, BMP #### [facility] [address] [place] [address] Dr. Jose David Viera AUTO DIFFon [id number] #0.0 103/ulNormal0.0-0.1The [facility] County HospitalComment on above:Performed By: #### LACT #### [facility] [address] [place] [address] Dr. Jose David ShanksBasophils/100 WBC (Bld)0.3 %Normal0.2-2.0[facility] Comment on above:Performed By: #### LACT #### [facility] [address] [address] [address] Jose David Devries #0.1 103/ulNormal0.0-0.7The [facility] HospitalComment on above: Performed By: #### LACT #### [facility] [address] [place] [address] Dr. Jose David Vickersosinophils/100 WBC (Bld)0.5 %Critically low0.9-7.0The [facility] County HospitalComment on above:Performed By: #### LACT #### [facility] [address] [place] [address] Dr. Jose David Vickersrythrocyte distribution width (RBC) [Ratio]13.4 %Fadwfg18.0-15.0 The [facility] HospitalComment on above:Performed By: #### LACT #### [facility] [address] [place] [address] Dr. Jose David ShanksHematocrit (Bld) [Volume fraction]33.0 %Critically low36.0-48.0 The [facility] HospitalComment on above:Performed By: #### LACT #### [facility] [address] [place] [address] Dr. Jose David ShanksHemoglobin (Bld) [Mass/Vol]11.1 g/dLCritically low12.0-16.0The [facility] HospitalComment on above:Performed By: #### LACT #### [facility] [address] [place] [address] Dr. Jose David Guerrero #0.06 10e3/ulCritically high0.00-0.03The [facility] Comment on above:Performed By: #### LACT #### [facility] [address] [place] [address] Dr. Jose David Guerrero %0.5 %Normal0.0-0.5The [facility] HospitalComment on above: Performed By: #### LACT #### [facility] [address] [address] [address] Jose David Rolon #0.8 103/ulCritically low1.2-3.8[facility] Comment on above:Performed By: #### LACT #### [facility] [address] [place] [address] Dr. Jose David Allenmphocytes/100 WBC (Bld)7.0 %Critically low20.5-60.0The [facility] HospitalComment on above:Performed By: #### LACT #### [facility] [address] [place] [address] Dr. Jose David Donovan DIFF REQNONormalThe [facility] County HospitalComment on above: Performed By: #### LACT #### [facility] [address] [place] [address] Dr. Jose David Turner (RBC) [Entitic mass]29.6 elZhwkce67.7-34.0The [facility] HospitalComment on above:Performed By: #### LACT #### [facility] [address] [place] [address] Dr. Jose David Turner (RBC) [Mass/Vol]33.6 g/dHSmpoef32.9-35.2The [facility] HospitalComment on above:Performed By: #### LACT #### [facility] [address] [place] [address] Dr. Jose David Turner (RBC) [Entitic vol]88.0 jPUfoevo63.0-99.0The [facility] HospitalComment on above:Performed By: #### LACT #### [facility] [address] [place] [address] Dr. Jose David Horton #0.6 103/ulNormal0.3-0.8The [facility] HospitalComment on above:Performed By: #### LACT #### [facility] [address] [place] [address] Dr. Jose David Olivoocytes/100 WBC (Bld)5.4 %Normal1.7-12.0[facility] Comment on above:Performed By: #### LACT #### [facility] [address] [address] [address] Jose David Mix #9.9 103/ulCritically high1.4-6.5The [facility] Comment on above:Performed By: #### LACT #### [facility] [address] [place] [address] Dr. Jose David Herndonutrophils/100 WBC (Bld)86.3 %Critically high43.0-75.0The Eagle HospitalComment on above:Performed By: #### LACT #### [facility] [address] [place] [address] Dr. Jose David ShanksPlatelet mean volume (Bld) [Entitic vol]10.1 fLNormal9.5-13.5The [facility] HospitalComment on above:Performed By: #### LACT #### [facility] [address] [place] [address] Dr. Jose David ShanksPLT333 103/ilIzqwqk084-960Nwa Eagle HospitalComment on above: Performed By: #### LACT #### [facility] [address] [place] [address] Dr. Jose David ShanksRBC3.75 106/ulCritically low4.20-5.40The [facility] HospitalComment on above:Performed By: #### LACT #### [facility] [address] [place] [address] Dr. Jose David ShanksWBC11.5 103/ulCritically high4.0-11.0The [facility] HospitalComment on above:Performed By: #### LACT #### [facility] [address] [place] [address] Dr. Jose David Scott BLOODon [id number] examination of blood, cultureCulture Observations: NO GROWTH AT 5 DAYS.NormalThe [facility] County HospitalComment on above:Performed By: #### LACT #### [facility] [address] [place] [address] Dr. Jose David ShanksMicroscopic examination of blood, cultureCulture Observations: NO GROWTH AT 5 DAYS.NormalThe Eagle HospitalComment on above:Performed By: #### LACT #### [facility] [address] [address] [address] Jose David PinoCARDIO M/2D COMPLETEon [id number] M/2D COMPLETE Patient: LASHAUN JOAQUIN Exam Date: 02/08/2023 : 1940 Gender:F Ordering : DR ALLI SCOTT . Admission #: [id number] Family : DR NATHAN HATHAWAY D.O. Order #: [id number] CLICK HERE TO VIEW EXAM ECHOCARDIOGRAM REPORT [...] by: Jaquan Payne M.D. on 02/09/2023 at 19:11[facility] HospitalLACTATE/LACTIC ACIDon 41-66-3063Njgebpt [Moles/Vol]1.4 mmol/LNormal 0.4-2.0The [facility] HospitalComment on above:Performed By: #### LACT #### [facility] [address] [address] [address] Jose David ShanksLactate [Moles/Vol]1.4 mmol/LNormal0.4-2.0[facility] Comment on above:Performed By: #### LACT #### [facility] [address] [address] [address] Jose David BarthF CHEM 8 (BAS METB)on 81-24-2295Ktycg gap [Moles/Vol]11.9 mmol/LNormalThe [facility] County HospitalComment on above:Performed By: #### CMADM, BMP #### [facility] [address] [place] [address] Dr. Jose David ShanksCalcium [Mass/Vol]9.0 mg/dLNormal8.5-10.1The [facility] Comment on above:Performed By: #### CMADM, BMP #### [facility] [address] [address] [address] Jose David ShanksChloride [Moles/Vol]105 mmol/HCgutks81-625Rmq [facility] Comment on above:Performed By: #### CMADM, BMP #### [facility] [address] [address] [address] Jose David ShanksCO2 [Moles/Vol]28.2 mmol/MDbiigg55.0-32.0The [facility] Comment on above:Performed By: #### CMADM, BMP #### [facility] [address] [place] [address] Dr. Jose David ShanksCreatinine [Mass/Vol]0.99 mg/dLNormal0.55-1.02The [facility] HospitalComment on above:Performed By: #### CMADM, BMP #### [facility] [address] [place] [address] Dr. Jose David VickersGFR-AF DUTCH>60Normal>=60The [facility] HospitalComment on above:Performed By: #### CMADM, BMP #### [facility] [address] [address] [address] Jose David VickersGFR-NON AF JXHFXMGC97 mL/min/1.27g9Sfpnjvmiwv low>=60The [facility] HospitalComment on above:Performed By: #### CMADM, BMP #### [facility] [address] [address] [address] Jose David ShanksGlucose [Mass/Vol]123 mg/dLCritically lulq15-719Ixi [facility] HospitalComment on above:Performed By: #### CMADM, BMP #### [facility] [address] [address] [address] Jose David ShanksPotassium [Moles/Vol]4.1 mmol/LNormal3.5-5.1The [facility] Comment on above:Performed By: #### CMADM, BMP #### [facility] [address] [address] [address] Jose David ShanksSodium [Moles/Vol]141 mmol/JMcingm467-654Jpn [facility] Comment on above:Performed By: #### CMADM, BMP #### [facility] [address] [address] [address] Jose David ShanksUrea nitrogen [Mass/Vol]14.0 mg/dLNormal7.0-18.0The [facility] HospitalComment on above:Performed By: #### CMADM, BMP #### [facility] [address] [address] [address] Jose David Rubio nitrogen/Creatinine [Mass ratio]14.1 mg/mgNormalThe [facility] HospitalComment on above:Performed By: #### CMADM, BMP #### [facility] [address] [address] [address] Jose David ShanksRESPIRATORY PANEL PLUSon 88-45-8041GlfnfezgchOlx detectedNormal NOT DETECTEDThe [facility] County HospitalComment on above:Performed By: #### RSPLUS #### [facility] [address] [address] [address] Jose David Mccoy. ParapertusisNot detectedNormalNOT DETECTEDThe [facility] HospitalComment on above:Performed By: #### RSPLUS #### [facility] [address] [address] [address] Jose David Mccoy. PertussisNot detectedNormalNOT DETECTEDThe [facility] Comment on above:Performed By: #### RSPLUS #### [facility] [address] [address] [address] Jose David ShanksChlamydia PneumoniaeNot detectedNormalNOT DETECTEDThe [facility] HospitalComment on above:Performed By: #### RSPLUS #### [facility] [address] [address] [address] Jose David ShanksCoronavirus 229ENot detectedNormalNOT DETECTEDThe [facility] HospitalComment on above:Performed By: #### RSPLUS #### [facility] [address] [address] [address] Jose David ShanksCoronavirus EBI3Edu detectedNormalNOT DETECTEDThe [facility] HospitalComment on above:Performed By: #### RSPLUS #### [facility] [address] [address] [address] Jose David ShanksCoronavirus TQ01Nyb detectedNormalNOT DETECTEDThe [facility] HospitalComascension [facility] on above:Performed By: #### RSPLUS #### [facility] [address] [address] [address] Jose David ShanksCoronavirus ZD02Pdv detectedNormalNOT DETECTEDThe [facility] HospitalComment on above:Performed By: #### RSPLUS #### [facility] [address] [address] [address] Jose David Rangel A H1Not detectedNormalNOT DETECTEDThe [facility] Comment on above:Performed By: #### RSPLUS #### [facility] [address] [address] [address] Jose David Kat H1 2009Not detectedNormalNOT DETECTEDThe [facility] HospitalComment on above:Performed By: #### RSPLUS #### [facility] [address] [address] [address] Yilan ChangInfluenza A H3Not detectedNormalNOT DETECTEDThe [facility] Comment on above:Performed By: #### RSPLUS #### [facility] [address] [address] [address] Jose David Rangel BNot detectedNormalNOT DETECTEDThe [facility] Comment on above:Performed By: #### RSPLUS #### [facility] [address] [address] [address] Jose David AbdullahineumovirusNot detectedNormalNOT DETECTEDThe [facility] HospitalComment on above:Performed By: #### RSPLUS #### [facility] [address] [address] [address] Jose David Ha. PneumoniaeNot detectedNormalNOT DETECTEDThe [facility] HospitalComment on above:Performed By: #### RSPLUS #### [facility] [address] [address] [address] Jose David Del Toro 1Not detectedNormalNOT DETECTEDThe [facility] HospitalComment on above:Performed By: #### RSPLUS #### [facility] [address] [address] [address] Jose David Del Toro 2Not detectedNormalNOT DETECTEDThe [facility] HospitalComment on above:Performed By: #### RSPLUS #### [facility] [address] [address] [address] Jose David Del Toro 3Not detectedNormalNOT DETECTEDThe [facility] HospitalComment on above:Performed By: #### RSPLUS #### [facility] [address] [address] [address] Jose David Del Toro 4Not detectedNormalNOT DETECTEDThe [facility] HospitalComasc[facility] on above:Performed By: #### RSPLUS #### [facility] [address] [address] [address] Jose David ShanksRhmelina/EnterovirusNot detectedNormalNOT DETECTEDThe [facility] HospitalComasc[facility] on above:Performed By: #### RSPLUS #### [facility] [address] [place] [address] Dr. Jose David Ruff Header 1RESPIRATORY PANEL: VIRUSESC[facility] Clinic [facility] Hospital Comment on above:Performed By: #### RSPLUS #### [facility] [address] [place] [address] Dr. Jose David Ruff Header 2RESPIRATORY PANEL: BACTERIANoLake County Memorial Hospital - WestComment on above:Performed By: #### RSPLUS #### [facility] [address] [place] [address] Dr. Jose David ShanksRSVNot detectedNormalNOT DETECTEDThe [facility] HospitalComment on above:Performed By: #### RSPLUS #### [facility] [address] [place] [address] Dr. Jose David Gonzalez-CoV-2 (COVID-19) RNA ZABRINA+probe Ql (Unsp spec)Not detected NormalNOT DETECTEDThe [facility] County HospitalComment on above:Performed By: #### RSPLUS #### [facility] [address] [place] [address] Dr. Jose David ShanksXR CHEST 1 Von [id number] CHEST 1 VEXAM: XR CHEST 1 V [...] Electronically authenticated by: Petra SAHU Date: 2023-02-08 05:[address] [place], [place] [address]MG MAMM SCREEN 3D SCARLETT CADon 73-83-1204YM MAMM SCREEN 3D SCARLETT CAD Patient: LASHAUN JOAQUIN Exam Date: 01/08/2023 : 1940 Gender:F Ordering : DR NATHAN HATHAWAY D.O. Admission #: [id number] Family : Order #: [id number] CLICK HERE TO VIEW EXAM RADIOLOGY REPORT [...] lung cancer at age 62. LOCATION: [facility] BREAST COMPOSITION: Extremely dense, which lowers [...] by: William Dominguez MD on 01/08/2023 at 11:24[facility] HEAD_NECKon [id number] HEAD_NECKEXAM: US HEAD_NECK HISTORY: Localized enlarged lymph [...] Electronically authenticated by: WILLIAM DOMINGUEZ Date: 2022-09-11 17:07[facility] Abdomen and Pelvis W contrast Rivka 71-31-1537HCQMGGRHIW: 1. Stable CT of the abdomen and [...] any questions regarding this interpretation, please call [phone]. If you are unable to reach us at the number above, please feel free to contact [facility] at [phone].DIVISION OF RADIOLOGY* * *Final Report* * * DATE OF EXAM: Aug 28 2022 1:36PM [facility] 0530 - CT ABD/PEL W IVCON / [...] chest CT performed will be reported separately. Ear Nose Throat Physician (topogram) images: No additional findings. DIVISION OF RADIOLOGYProvider, [facility] [place] - 08/28/2022 * * *Final Report* * * DATE OF EXAM: Aug 28 2022 1:36PM [facility] 0530 - CT ABD/PEL W IVCON / [...] chest CT performed will be reported separately. Ear Nose Throat Physician (topogram) images: No additional findings. IMPRESSION IMPRESSION: [...] any questions regarding this interpretation, please call [phone]. If you are unable to reach us at the number above, please feel free to contact [facility] eRadiology at [phone]. [facility] Abdomen and Pelvis W contrast IVOrdered By: [facility] Provider on [id number] [facility] Chest W contrast Rikva 01-82-6766JSVGAUPYSK: 1. Interval resolution of previously described right [...] any questions regarding this interpretation, please call [phone]. If you are unable to reach us at the number above, please feel free to contact [facility] eRadiology at [phone].DIVISION OF RADIOLOGY* * *Final Report* * * DATE OF EXAM: Aug 28 2022 1:36PM [facility] 0539 - CT CHEST W IVCON / [...] was performed concurrently and is reported separately. Ear Nose Throat Physician (topogram) images: No additional findings. DIVISION OF RADIOLOGYProvider, [facility] [place] - 08/28/2022 * * *Final Report* * * DATE OF EXAM: Aug 28 2022 1:36PM [facility] 0539 - CT CHEST W IVCON / [...] was performed concurrently and is reported separately. Ear Nose Throat Physician (topogram) images: No additional findings. IMPRESSION IMPRESSION: [...] any questions regarding this interpretation, please call [phone]. If you are unable to reach us at the number above, please feel free to contact [facility] eRadiology at [phone]. [facility] HospitalNo Panel Informationon 75-87-8073Yfvqeaxze Study observation (narrative)[facility]hillCovid-19 PCR (CVDTBH)on 05-04-2022 SARS-CoV-2 (COVID-19) RNA ZABRINA+probe Ql (Unsp spec)DetectedCritically abnormalNOT DETECTEDThe [facility] HospitalComment on above:Result Comment: This test is not yet approved or cleared by the [place] FDA. When there are no FDA-approved or cleared tests available, and other criteria are met, FDA can make tests available under an emergency access mechanism called an Emergency Use Authorization (EUA). The EUA for this test is supported by the [place] of Health and Human Service's (HHS's) declaration [...] longer be used).Performed By: #### CVDTBH #### [facility] [address] [place] [address] Dr. Jose David Shanks Vital Signs Date TimeVital SignValuePerforming EkspybbplStprhrqj26-03-1465 11:43-0400Body ymfziu742.02 cmBenjamin Ball DO Work Phone: [phone])[facility] [place], [place] 4404810-24-2025 11:43-0400 Body mass index (BMI) [Ratio]34.7 kg/c7Ultiteqp Ball DO Work Phone: 1(325)[address] [place], [place] 4812710-24-2025 11:43-0400 Body dvfirg55.9 kgBenjamin Ball DO Work Phone: 1(460)[address] [place], [place] 4812710-24-2025 11:43-0400 Diastolic blood mm[Hg]Nathan Ball DO Work Phone: 1(705)[address] [place], [place] 4812710-24-2025 11:43-0400 Heart rate62 /minBenjamin Ball DO Work Phone: 1(294)[address] [place], [place] 4812710-24-2025 11:43-0400 Respiratory rate14 /minBenjamin Ball DO Work Phone: 1(251)[address] [place], [place] 4812710-24-2025 11:43-0400 SaO2% (BldA) [Mass fraction]98 %Nathan Ball DO Work Phone: 1(737)[address] [place], [place] 4812710-24-2025 11:43-0400 Systolic blood ulqdckcc212 mm[Hg]Nathan Ball DO Work Phone: 1(208)[address] [place], [place] 4812710-07-2025 10:44-0400 Body siqbve137.02 cmBenjamin Ball DO Work Phone: 1([phone] [place], [place] 4812710-07-2025 10:44-0400 Body mass index (BMI) [Ratio]34.5 kg/k5Gibimryc Ball DO Work Phone: 1(649)[address] [place], [place] 4812710-07-2025 10:44-0400 Body meqxycuhwqo21.6 [degF]Nathan Ball DO Work Phone: 1(313)[address] [place], [place] 4812710-07-2025 10:44-0400 Body useimg28.45 kgBenjamin Ball DO Work Phone: [phone])[address] [place], [place] 4812710-07-2025 10:44-0400 Diastolic blood iboqkrsx98 mm[Hg]Nathan Ball DO Work Phone: 1419)[address] [place], [place] 4812710-07-2025 10:44-0400 Heart rate69 /minBenjamin Ball DO Work Phone: [phone])[address] [place], [place] 4812710-07-2025 10:44-0400 SaO2% (BldA) [Mass fraction]96 %Nathan Ball DO Work Phone: [phone])[address] [place], [place] 4812710-07-2025 10:44-0400 Systolic blood vorvncho547 mm[Hg]Nathan Ball DO Work Phone: [phone])[address] [place], [place] 4812709-23-2025 15:53-0400 Body opclvc952.37 cmBenjamin Ball DO Work Phone: [phone])[address] [place], [place] 4812709-23-2025 15:53-0400 Body mass index (BMI) [Ratio]31.9 kg/n2Dpkucsyq Ball DO Work Phone: 1419)[address] [place], [place] 4812709-23-2025 15:53-0400 Body vagtmb88.45 kgBenjamin Ball DO Work Phone: 1(973)[address] [place], [place] 4812709-23-2025 15:53-0400 Diastolic blood uziwurtf84 mm[Hg]Nathan Ball DO Work Phone: 1(285)[address] [place], [place] 4812709-23-2025 15:53-0400 Diastolic blood mm[Hg]Nathan Ball DO Work Phone: 1(105)[facility] [place], [place] 4404809-23-2025 15:53-0400 Heart rate76 /minBenjamin Ball DO Work Phone: [phone])[address] [place], [place] 4812709-23-2025 15:53-0400 Respiratory rate12 /minBenjamin Ball DO Work Phone: 1(553)[address] [place], [place] 4812709-23-2025 15:53-0400 Systolic blood posgdgvc281 mm[Hg]Nathan Ball DO Work Phone: [facility]09-23-2025 15:53-0400 Systolic blood vracvjvu202 mm[Hg]Nathan Hathaway DO Work Phone: [facility]09-10-2025 10:09-0400 Diastolic blood dtalwgqx14 mm[Hg]Paolo Casillas APRN.CREATIVE SERVICES WRITER Work Phone: [facility]Comment on above:recheck BP [facility] 07-08-2025 10:09-0400Systolic blood gzxfyfhy825 mm[Hg]Paolo Casillas APRN.CREATIVE SERVICES WRITER Work Phone: [facility]hillComment on above:recheck BP [facility] 07-08-2025 10:01-0400Body .4 cmPaolo Casillas APRN.CREATIVE SERVICES WRITER Work Phone: [facility]09-10-2025 10:01-0400Body mass index (BMI) [Ratio]33.15 kg/b2IhoeuPaolo Casillas APRN.CREATIVE SERVICES WRITER Work Phone: [facility]09-10-2025 10:01-0400Body temperature 96.8 [degF]Paolo Casillas APRN.CREATIVE SERVICES WRITER Work Phone: [facility]09-10-2025 10:01-0400Body .8 kgPaolo Casillas APRN.CREATIVE SERVICES WRITER Work Phone: [facility]09-10-2025 10:01-0400Heart rate66 /min Paolo Casillas APRN.CREATIVE SERVICES WRITER Work Phone: [facility]09-10-2025 10:01-0400Respiratory rate 18 /minPaolo Casillas APRN.CREATIVE SERVICES WRITER Work Phone: [facility]09-10-2025 10:01-9881ByX3% (BldA) [Mass fraction]95 %Paolo Casillas APRN.CREATIVE SERVICES WRITER Work Phone: [facility]08-22-2025 09:31-0400Body ujbuio526.37 cmBenjuanairam Hathaway DO Work Phone: [address] [place], [place] 5319208-22-2025 09:31-0400 Body mass index (BMI) [Ratio]32.4 kg/d9Cneynfwj Ball DO Work Phone: 1(585)[address] [place], [place] 4812708-22-2025 09:31-0400 Body idpctv70.81 kgBenjamin Ball DO Work Phone: 1(586)[address] [place], [place] 4812708-22-2025 09:31-0400 Diastolic blood baihpciw27 mm[Hg]Nathan Ball DO Work Phone: 1(909)[address] [place], [place] 4812708-22-2025 09:31-0400 Heart rate62 /minBenjamin Ball DO Work Phone: 1(986)[address] [place], [place] 4812708-22-2025 09:31-0400 Respiratory rate14 /minBenjamin Ball DO Work Phone: 1(169)[address] [place], [place] 4812708-22-2025 09:31-0400 SaO2% (BldA) [Mass fraction]96 %Nathan Ball DO Work Phone: 1(944)[address] [place], [place] 4812708-22-2025 09:31-0400 Systolic blood yeiadnmm351 mm[Hg]Nathan Ball DO Work Phone: 1(789)[address] [place], [place] 4812707-22-2025 15:33-0400 Body guqmhs888.37 cmBenjamin Ball DO Work Phone: 1(413)[address] [place], [place] 4812707-22-2025 15:33-0400 Body mass index (BMI) [Ratio]31.8 kg/r5Kxssaaob Ball DO Work Phone: 1(213)[address] [place], [place] 4812707-22-2025 15:33-0400 Body ybnmgi88.13 kgBenjamin Ball DO Work Phone: 1(661)[address] [place], [place] 4812707-22-2025 15:33-0400 Diastolic blood wemlbzec37 mm[Hg]Nathan Ball DO Work Phone: 1(819)[address] [place], [place] 4812707-22-2025 15:33-0400 Heart rate67 /minBenjamin Ball DO Work Phone: 1(419)[address] [place], [place] 4812707-22-2025 15:33-0400 Respiratory rate14 /minBenjamin Ball DO Work Phone: [phone])[address] [place], [place] 4812707-22-2025 15:33-0400 SaO2% (BldA) [Mass fraction]96 %Nathan Ball DO Work Phone: [phone])[address] [place], [place] 4812707-22-2025 15:33-0400 Systolic blood ykdwstjy224 mm[Hg]Nathan Ball DO Work Phone: 1(419)[address] [place], [place] 4812705-22-2025 11:22-0400 Body hdvotx339.37 cmBenjamin Ball DO Work Phone: 1419)[address] [place], [place] 4812705-22-2025 11:22-0400 Body mass index (BMI) [Ratio]31.6 kg/x6Ymznkqpk Ball DO Work Phone: 1419)[address] [place], [place] 4812705-22-2025 11:22-0400 Body kvxiys37.54 kgBenjamin Ball DO Work Phone: 1419)[address] [place], [place] 4812705-22-2025 11:22-0400 Diastolic blood goomvbwj62 mm[Hg]Nathan Ball DO Work Phone: 1(936)[address] [place], [place] 4812705-22-2025 11:22-0400 Heart rate66 /minBenjamin Ball DO Work Phone: 1419)[address] [place], [place] 4812705-22-2025 11:22-0400 Respiratory rate12 /minBenjamin Ball DO Work Phone: 1419)[address] [place], [place] 4812705-22-2025 11:22-0400 SaO2% (BldA) [Mass fraction]97 %Nathan Ball DO Work Phone: 1419)[address] [place], [place] 4812705-22-2025 11:22-0400 Systolic blood xejsosiu947 mm[Hg]Nathan Ball DO Work Phone: 1419)[address] [place], [place] 4812705-20-2025 10:42-0400 Body adokqw537.1 [facility] [address] [place], [place] 0198405-20-2025 10:42-0400 Body mass index (BMI) [Ratio]33.28 kg/m[address] 03-17-2025 10:42-0400Body cuqpje99.[address] 03-17-2025 10:42-0400Diastolic blood xjumyvmy96 mm[Hg][address]05-20-2025 10:42-0400Systolic blood onxdpghb388 mm[Hg][address]05-16-2025 13:25-0400Body gxpddi363.37 cm Nathan Ball DO Work Phone: 1(344)[address]05-16-2025 13:25-0400 Body mass index (BMI) [Ratio]33 kg/h5Fxkfzcxk Ball DO Work Phone: 1(786)[address]05-16-2025 13:25-0400 Body gnddxy81.28 kgBenjamin Ball DO Work Phone: 1(158)502-[address] [place], [place] 4404805-16-2025 13:25-0400 Diastolic blood wicxpzkr79 mm[Hg]Nathan Ball DO Work Phone: 1(898)564-[address] [place], [place] 4404805-16-2025 13:25-0400 Heart rate90 /minBenjamin Ball DO Work Phone: 1(398)[address]05-16-2025 13:25-0400 Respiratory rate12 /minBenjamin Ball DO Work Phone: 1(104)626-[address] [place], [place] 4404805-16-2025 13:25-0400 Systolic blood wtzufzjn394 mm[Hg]Nathan Ball DO Work Phone: 1(783)[address]04-30-2025 08:46-0400 Body lucmnt886.1 cmReyna Esparza MD Work Phone: [facility]6452 08:46-0400Body mass index (BMI) [Ratio]32.45 kg/t9LqhvrxReyna Esparza MD Work Phone: [facility] HospitalApksbzcgii06-53-8844 08:46-0400Body rhgocg01.45 kgReyna Esparza MD Work Phone: [facility] HospitalXbnhldproa62-37-0681 08:46-0400Diastolic blood demlauwf96 mm[Hg]Reyna Esparza MD Work Phone: [facility]Apubfuyxvp05-[facility]1926 08:46-0400Heart rate72 /min Reyna Esparza MD Work Phone: [facility] HospitalChqlmznsuf08-70-1645 08:46-0400Systolic blood mm[Hg]Reyna Esparza MD Work Phone: [facility] HospitalNihdclzlpo52-63-7476 10:20-0400Diastolic blood auccvmjh10 mm[Hg]Nathan Ball DO Work Phone: 1(275)024-[address] [place], [place] 4404804-17-2025 10:20-0400 Heart rate56 /minBenjamin Ball DO Work Phone: 1(637)[facility] [place], [place] 4404804-17-2025 10:20-0400 Respiratory rate18 /minBenjamin Ball DO Work Phone: 1(279)[address] [place], [place] 4812704-17-2025 10:20-0400 SaO2% (BldA) [Mass fraction]97 %Nathan Ball DO Work Phone: 1(715)987-[address] [place], [place] 4404804-17-2025 10:20-0400 Systolic blood lylwmvza279 mm[Hg]Nathan Ball DO Work Phone: 1(008)789-[address] [place], [place] 4404804-17-2025 06:29-0400 Body .1 cmBenjamin Ball DO Work Phone: 1(060)[facility] [place], [place] 4404804-17-2025 06:29-0400 Body ppxmbwezseb30.3 [degF]Nathan Ball DO Work Phone: 1(257)[facility] [place], [place] 4404804-17-2025 06:29-0400 Body bimhok07.9 kgBenjamin Ball DO Work Phone: 1(195)[address] [place], [place] 4812703-27-2025 10:20-0400 Body fpyqin171.37 cmBenjamin Ball DO Work Phone: [facility]03-27-2025 10:20-0400 Body mass index (BMI) [Ratio]31.9 kg/h7Wokxwgdg Ball DO Work Phone: [facility]03-27-2025 10:20-0400 Body ctlqeh36.45 kgBenjamin Ball DO Work Phone: 1(228)860-34[facility]03-27-2025 10:20-0400 Diastolic blood ggisoccx58 mm[Hg]Nathan Ball DO Work Phone: 1(862)567-26[facility]03-27-2025 10:20-0400 Heart rate65 /minBenjamin Ball DO Work Phone: 1(783)489-49[facility]03-27-2025 10:20-0400 Respiratory rate12 /minBenjamin Ball DO Work Phone: 1(676)[phone]03-27-2025 10:20-0400 Systolic blood tdixlflc492 mm[Hg]Nathan Ball DO Work Phone: 1([phone]03-17-2025 11:10-0400 Body .1 cmHolden Rosado DIRECTOR BLOOD BANK-CREATIVE SERVICES WRITER Work Phone: [facility]03-17-2025 11:10-0400 Body mass index (BMI) [Ratio]33.28 kg/j3AassbHolden Rosado DIRECTOR BLOOD BANK-CREATIVE SERVICES WRITER Work Phone: [facility]03-17-2025 11:10-0400 Body hjpzyy77.72 kgHolden Rosado DIRECTOR BLOOD BANK-CREATIVE SERVICES WRITER Work Phone: [facility]03-17-2025 11:10-0400 Diastolic blood hzmqoufr85 mm[Hg]Holden Rosado DIRECTOR BLOOD BANK-CREATIVE SERVICES WRITER Work Phone: [facility]03-17-2025 11:10-0400 Heart rate60 /Jasbir Rosado DIRECTOR BLOOD BANK-CREATIVE SERVICES WRITER Work Phone: [address] [place], [place] 1616003-17-2025 11:10-0400 Systolic blood jcvzptse033 mm[Hg]Holden Rosado DIRECTOR BLOOD BANK-CREATIVE SERVICES WRITER Work Phone: [facility]02-18-2025 10:50-0500 Body .37 cmBenjamin Ball DO Work Phone: 1(114)820[facility]99[facility]02-18-2025 10:50-0500 Body mass index (BMI) [Ratio]32 kg/i2Obncreyh Ball DO Work Phone: 1(731)[address]02-18-2025 10:50-0500 Body ijmziu91.59 kgBenjamin Ball DO Work Phone: 1(809)[address] [place], [place] 4812702-18-2025 10:50-0500 Diastolic blood clydxpeh67 mm[Hg]Nathan Ball DO Work Phone: 1(401)395-59[facility]02-18-2025 10:50-0500 Heart rate56 /minBenjamin Ball DO Work Phone: 1(201)085-[address] [place], [place] 4404802-18-2025 10:50-0500 SaO2% (BldA) [Mass fraction]97 %Nathan Ball DO Work Phone: 1(932)[address]02-18-2025 10:50-0500 Systolic blood dyfhtjtn314 mm[Hg]Nathan Ball DO Work Phone: 1(400)[address]01-28-2025 13:55-0500 Body prepme238.1 cmReyna Esparza MD Work Phone: [facility] HospitalIhpohpguzz31-16-0176 13:55-0500Body mass index (BMI) [Ratio]32.28 kg/w0RrvbjbReyna Esparza MD Work Phone: 1([phone] HospitalFgntxaghjp94-88-1897 13:55-0500Body albflf85 kg Reyna Esparza MD Work Phone: [facility] HospitalPtylekhhzh62-28-3759 13:55-0500Diastolic blood hmfkdiui35 mm[Hg]Reyna Esparza MD Work Phone: [facility] HospitalFzxzgnvpke64-65-3029 13:55-0500Heart rate60 /min Reyna Esparza MD Work Phone: [facility] HospitalKvxeynwgeo39-53-7610 13:55-0500Systolic blood uvmormxa625 mm[Hg]Reyna Esparza MD Work Phone: [facility] HospitalEjemgvywnu02-41-1799 13:05-0500Diastolic blood nbarfukg86 mm[Hg]Nathan Ball DO Work Phone: 1(577)[address] [place], [place] 4812701-20-2025 13:05-0500 Heart rate68 /minBenjamin Ball DO Work Phone: 1(440)[address] [place], [place] 4812701-20-2025 13:05-0500 Respiratory rate16 /minBenjamin Ball DO Work Phone: 1(824)[address] [place], [place] 4812701-20-2025 13:05-0500 SaO2% (BldA) [Mass fraction]94 %Nathan Ball DO Work Phone: 1(473)[address] [place], [place] 4812701-20-2025 13:05-0500 Systolic blood sjhvemym553 mm[Hg]Nathan Ball DO Work Phone: 1(843)[address] [place], [place] 4812701-20-2025 10:05-0500 Body zvfnie155.37 cmBenjamin Ball DO Work Phone: 1(784)[address] [place], [place] 4812701-20-2025 10:05-0500 Body onuzhq35.35 kgBenjamin Ball DO Work Phone: 1(260)[address] [place], [place] 4812712-11-2024 10:40-0500 Body .1 cmWilliam Orlando DO Work Phone: [facility]12-11-2024 10:40-0500 Body mass index (BMI) [Ratio]33.12 kg/h9Ykhlorf Orlando DO Work Phone: [facility]12-11-2024 10:40-0500 Body vzpmko12.27 kgWihelena Orlando DO Work Phone: [facility]12-11-2024 10:40-0500 Diastolic blood puzgwrtt55 mm[Hg]Edinson Perry DO Work Phone: [facility]12-11-2024 10:40-0500 Heart rate78 /Frieda Perry DO Work Phone: [facility]12-11-2024 10:40-0500 Systolic blood mm[Hg]Edinson Perry DO Work Phone: [facility]11-14-2024 10:19-0500 Body vdawfn248.1 [facility]14-20[facility] 10:19-0500Body mass index (BMI) [Ratio]32.3 kg/w7FcsxxebwpTrumbull Regional Medical Center11-14-2024 10:19-0500Body spxamj67.13 kgTr[facility] Center11-14-2024 10:19-0500Diastolic blood mqkzvyka86 mm[Hg][facility] 09-11-2024 10:19-0500Heart rate63 /min[facility] 09-11-2024 10:19-5706JiR1% (BldA) [Mass fraction]97 %[facility]11-14-2024 10:19-0500Systolic blood yhurxpxn468 mm[Hg][facility]08-06-2024 10:54-0400Body vquxsq674.1 cmDO [employer] Work Phone: [facility]08-06-2024 10:54-0400 Body mass index (BMI) [Ratio]26.8 kg/m2DO Nathan [employer] Work Phone: [facility]08-06-2024 10:54-0400 Body oeetoy47.02 kgDO [employer] Work Phone: [facility]08-06-2024 10:54-0400 Diastolic blood mm[Hg]DO Nathan [employer] Work Phone: [facility]08-06-2024 10:54-0400 Heart rate56 /minDO Nathan Ball Work Phone: [facility]08-06-2024 10:54-0400 Respiratory rate12 /Emerald Hathaway Work Phone: [facility]08-06-2024 10:54-0400 Systolic blood mm[Hg]DO Nathan Hathaway Work Phone: [facility]06-24-2024 10:21-0400 Body mass index (BMI) [Ratio]32.98 kg/p3RjybmHolden Rosado DIRECTOR BLOOD BANK-CREATIVE SERVICES WRITER Work Phone: [facility]06-24-2024 10:21-0400 Body fsofpf74.9 kgHolden Rosado DIRECTOR BLOOD BANK-CREATIVE SERVICES WRITER Work Phone: 8(889)827-[address] [place], [place] 6872206-24-2024 10:21-0400 Diastolic blood xegkocbi51 mm[Hg]Holden Rosado DIRECTOR BLOOD BANK-CREATIVE SERVICES WRITER Work Phone: [facility]06-24-2024 10:21-0400 Heart rate60 /Tetonorth Alonzo DIRECTOR BLOOD BANK-CREATIVE SERVICES WRITER Work Phone: [facility]06-24-2024 10:21-0400 Systolic blood viohjjbc108 mm[Hg]Holden Rosado DIRECTOR BLOOD BANK-CREATIVE SERVICES WRITER Work Phone: [facility]05-15-2024 09:27-0400 Diastolic blood jegumdyz90 mm[Hg]Laura [address] [place] [address] 03-12-2024 09:27-0400Heart rate62 /minEly [address] [place] [address] 03-12-2024 09:27-0400Systolic blood czcycapt063 mm[Hg]Laura [address] [place], [place] 6707105-08-2024 11:46-0400Body fkualm343.1 cmHolden Rosado DIRECTOR BLOOD BANK-CREATIVE SERVICES WRITER Work Phone: 5(507)086-[address] [place], [place] 6872205-08-2024 11:46-0400 Body mass index (BMI) [Ratio]32.62 kg/a5TivmxHolden Rosado DIRECTOR BLOOD BANK-CREATIVE SERVICES WRITER Work Phone: [facility]05-08-2024 11:46-0400 Body cyjzwy50.91 kgHolden Rosado DIRECTOR BLOOD BANK-CREATIVE SERVICES WRITER Work Phone: [facility]05-08-2024 11:46-0400 Diastolic blood sxtmzekn30 mm[Hg]Holden Rosado DIRECTOR BLOOD BANK-CREATIVE SERVICES WRITER Work Phone: [facility]05-08-2024 11:46-0400 Heart rate62 /Jasbir Rosado DIRECTOR BLOOD BANK-CREATIVE SERVICES WRITER Work Phone: [facility]05-08-2024 11:46-0400 Systolic blood zrbkubmo407 mm[Hg]Holden Rosado DIRECTOR BLOOD BANK-CREATIVE SERVICES WRITER Work Phone: [facility]05-01-2024 09:53-0400 Body lgvyxb335.1 cmDO Nathan Ball Work Phone: 1(262)933[facility]97[facility]05-01-2024 09:53-0400 Body mass index (BMI) [Ratio]31.9 kg/m2DO Nathan Ball Work Phone: 1(070)155-[address] [place], [place] 4404805-01-2024 09:53-0400 Body noziev16.08 kgDO Nathan Ball Work Phone: 1(869)505-[address] [place], [place] 4404805-01-2024 09:53-0400 Diastolic blood emcgzzif31 mm[Hg]DO Nathan Ball Work Phone: 1(288)020-77[facility]05-01-2024 09:53-0400 Heart rate62 /minDO Nathan Ball Work Phone: 1(183)226-[address] [place], [place] 4404805-01-2024 09:53-0400 SaO2% (BldA) [Mass fraction]97 %DO Nathan Ball Work Phone: 1(154)153-[address] [place], [place] 4404805-01-2024 09:53-0400 Systolic blood mucfcjwj412 mm[Hg]DO Nathan Ball Work Phone: 1(621)303-[address] [place], [place] 4404804-17-2024 10:30-0400 Body rtmtea557.1 cmTr[facility]04-17-2024 10:30-0400Body mass index (BMI) [Ratio]32.8 kg/m7QsjanrxafTrumbull Regional Medical Center04-17-2024 10:30-0400Body qbucea99.35 kgTr[facility]ull Regional Medical Center04-17-2024 10:30-0400Diastolic blood yyspbyun85 mm[Hg][facility] 02-13-2024 10:30-0400Heart rate56 /[facility] 02-13-2024 10:30-7410DqG8% (BldA) [Mass fraction]98 %[facility]04-17-2024 10:30-0400Systolic blood gntbozif894 mm[Hg][facility]04-05-2024 11:01-0400Body tzascs261.1 cmTr[facility]ull [facility] Center04-05-2024 11:01-0400Body mass index (BMI) [Ratio]27.3 kg/u4OtczkfcowTrumbull Regional Medical Center04-05-2024 11:01-0400Body .44 kgTr[facility]ull Regional Medical Center04-05-2024 11:01-0400Diastolic blood dulicfhp02 mm[Hg] [facility]04-05-2024 11:01-0400Heart rate49 /[facility]04-05-2024 11:01-0400Respiratory rate12 /[facility]04-05-2024 11:01-0400Systolic blood huqzvrfr592 mm[Hg] [facility]01-05-2024 11:00-0500Body gdizqp647.1 cm Nathan Ball Other [employer] Other 01-05-2024 11:00-0500Body mass index (BMI) [Ratio] 31.78 kg/i0Yittkouz Ball Other [employer] Other 01-05-2024 11:00-0500Body nrjlog40.64 kgBenjamin Ball Other [employer] Other 01-05-2024 11:00-0500Diastolic blood mm[Hg] Nathan Ball Other [employer] Other 01-05-2024 11:00-0500Respiratory rate16 /minBenjamin Ball Other [employer] Other 01-05-2024 11:00-0500Systolic blood zdwsxnoa947 mm[Hg] Nathan Ball Other [facility] Other 12-05-2023 09:45-0500Body yshwke087.1 cmBenjamin Ball Other [employer] Other 12-05-2023 09:45-0500Body mass index (BMI) [Ratio] 31.61 kg/w8Xlxreuoh Ball Other [employer] Other 12-05-2023 09:45-0500Body .18 kgBenjamin Ball Other [employer] Other 12-05-2023 09:45-0500Diastolic blood rsvafxki51 mm[Hg] Nathan Ball Other [employer] Other 12-05-2023 09:45-0500Respiratory rate12 /minBenjamin Ball Other [employer] Other 12-05-2023 09:45-0500Systolic blood xpwqsefu183 mm[Hg] Nathan Ball Other [employer] Other 08-11-2023 11:15-0400Body jckomo607.1 cmBenjamin Ball Other [employer] Other 08-11-2023 11:15-0400Body mass index (BMI) [Ratio] 32.95 kg/c2Hntundwi Ball Other [employer] Other 08-11-2023 11:15-0400Body .81 kgBeesa Hathaway Other [employer] Other 08-11-2023 11:15-0400Diastolic blood mugmjefw35 mm[Hg] Nathan Hathaway Other [employer] Other 08-11-2023 11:15-0400Respiratory rate12 /minBeesa Hathaway Other [employer] Other 08-11-2023 11:15-0400Systolic blood qzfgolob862 mm[Hg] Nathan Hathaway Other [employer] Other 08-07-2023 13:51-0400Body wjshdaphaoi04.7 [degF]Luis Mckenzie MD Work Phone: [facility]08-07-2023 13:51-0400Body sxugdz73.99 kgLuis Mckenzie MD Work Phone: [facility]08-07-2023 13:51-0400Diastolic blood vpknutqg09 mm[Hg]Luis Mckenzie MD Work Phone: [facility]08-07-2023 13:51-0400Heart rate56 /min Luis Mckenzie MD Work Phone: [facility]08-07-2023 13:51-0400Respiratory rate 18 /minLuis Mckenzie MD Work Phone: [facility]08-07-2023 13:51-1363OuZ0% (BldA) [Mass fraction]98 %Luis Mckenzie MD Work Phone: [facility]08-07-2023 13:51-0400Systolic blood icrxgobh720 mm[Hg]Luis Mckenzie MD Work Phone: [facility]07-28-2023 11:15-0400Body mrnuah466.1 cmBenjamin Ball Other [place] [facility] Other 07-28-2023 11:15-0400Body mass index (BMI) [Ratio] 32.86 kg/j5Axlhfssr Ball Other [place] [facility] Other 07-28-2023 11:15-0400Body xtpubb70.59 kgBenjamin Ball Other [place] [facility] Other 07-28-2023 11:15-0400Diastolic blood mm[Hg] Nathan Ball Other [place] [facility] Other 07-28-2023 11:15-0400Respiratory rate16 /minBenjamin Ball Other [place] [facility] Other 07-28-2023 11:15-0400Systolic blood nxatbjve739 mm[Hg] Nathan Ball Other [place] [facility] Other 07-21-2023 15:30-0400Body ncqggysckuu81.7 [degF]DO Nathan Ball Work Phone: [facility]07-21-2023 15:30-0400 Diastolic blood fjjetccv63 mm[Hg]DO Nathan Ball Work Phone: [facility]07-21-2023 15:30-0400 Heart rate62 /minDO Nathan Ball Work Phone: [facility]07-21-2023 15:30-0400 Respiratory rate16 /minDO Nathan Ball Work Phone: [facility]07-21-2023 15:30-0400 SaO2% (BldA) [Mass fraction]95 %DO Nathan Ball Work Phone: [facility]07-21-2023 15:30-0400 Systolic blood fesrudmi962 mm[Hg]DO Nathan Ball Work Phone: [facility]07-21-2023 05:39-0400 Body .1 kgDO Nathan [employer] Work Phone: [facility]07-20-2023 20:00-0400 Inhaled oxygen flow rate1.5 L/minDO Nathan Hathaway Work Phone: [facility]07-20-2023 15:54-0400 Body tgyrrf829.72 cmDO Nathan [employer] Work Phone: [facility]07-19-2023 11:30-0400 Body gzjizw512.1 cmBenjamin Ball Other [employer] [facility] Other 07-19-2023 11:30-0400Body mass index (BMI) [Ratio] 33.28 kg/p7Euqufdvp Ball Other [employer] [facility] Other 07-19-2023 11:30-0400Body gsskwu87.72 kgBenjamin Ball Other [place] [facility] Other 07-19-2023 11:30-0400Diastolic blood dwmrixye79 mm[Hg] Nathan Ball Other [employer] [facility] Other 07-19-2023 11:30-0400Respiratory rate16 /minBenjamin Ball Other [employer] Other 07-19-2023 11:30-0400Systolic blood hhehymuf695 mm[Hg] Nathan Ball Other [place] [facility] Other 07-12-2023 11:15-0400Body ozswrz284.1 cmBenjamin Ball Other [employer] Other 07-12-2023 11:15-0400Body mass index (BMI) [Ratio] 32.75 kg/u6Dfushurb Ball Other [employer] Other 07-12-2023 11:15-0400Body ozuuhp83.27 kgBenjamin Ball Other [employer] Other 07-12-2023 11:15-0400Diastolic blood wwgvmokh41 mm[Hg] Nathan Ball Other [employer] Other 07-12-2023 11:15-0400Respiratory rate16 /minBenjamin Ball Other [employer] Other 07-12-2023 11:15-5823KkS8% (BldA) [Mass fraction]98 % Nathan Ball Other [employer] Other 07-12-2023 11:15-0400Systolic blood ryomkmwl113 mm[Hg] Nathan Ball Other [employer] Other 06-29-2023 11:30-0400Body .1 cmBenjamin Ball Other [employer] Other 06-29-2023 11:30-0400Body mass index (BMI) [Ratio] 32.53 kg/k3Wfxzwfev Ball Other [employer] Other 06-29-2023 11:30-0400Body ittqlj08.68 kgBenjamin Ball Other [employer] Other 06-29-2023 11:30-0400Diastolic blood ieiyedrp77 mm[Hg] Nathan Ball Other [employer] Other 06-29-2023 11:30-0400Respiratory rate16 /minBenjamin Ball Other [employer] Other 06-29-2023 11:30-0400Systolic blood mm[Hg] Nathan Ball Other [employer] Other 06-21-2023 09:45-0400Body zqlsxa223.1 cmBenjamin Ball Other [employer] Other 06-21-2023 09:45-0400Body mass index (BMI) [Ratio] 33.28 kg/u0Uhxjhmvr Ball Other [employer] Other 06-21-2023 09:45-0400Body udxhxv56.72 kgBenjamin Ball Other [employer] Other 06-21-2023 09:45-0400Diastolic blood nqbioirx73 mm[Hg] Nathan Ball Other [employer] Other 06-21-2023 09:45-0400Respiratory rate20 /minBenjamin Ball Other [employer] Other 06-21-2023 09:45-1697BhC2% (BldA) [Mass fraction]98 % Nathan Ball Other [employer] Other 06-21-2023 09:45-0400Systolic blood evveathg774 mm[Hg] Nathan Ball Other [employer] Other 05-18-2023 10:45-0400Body xuzobv498.1 cmBenjamin Ball Other [facility] Other 05-18-2023 10:45-0400Body mass index (BMI) [Ratio] 31.95 kg/o0Oobymgeq Ball Other [place] [facility] Other 05-18-2023 10:45-0400Body .09 kgBenjamin Ball Other [place] [facility] Other 05-18-2023 10:45-0400Diastolic blood othrejhk89 mm[Hg] Nathan Ball Other [place] [facility] Other 05-18-2023 10:45-0400Respiratory rate16 /minBenjamin Ball Other [place] [facility] Other 05-18-2023 10:45-0400Systolic blood ugscxsvd142 mm[Hg] Nathan Ball Other [place] [facility] Other 05-12-2023 17:00-0400Body .9 [degF]DO Nathan Ball Work Phone: [facility]05-12-2023 17:00-0400 Diastolic blood mm[Hg]DO Nathan Ball Work Phone: 1(472)[phone]05-12-2023 17:00-0400 Heart rate54 /minDO Nathan Ball Work Phone: 1(724)323-29[facility]05-12-2023 17:00-0400 Respiratory rate16 /minDO Nathan Ball Work Phone: 1(322)[phone]05-12-2023 17:00-0400 SaO2% (BldA) [Mass fraction]96 %DO Nathan Ball Work Phone: [facility]05-12-2023 17:00-0400 Systolic blood dobatavr989 mm[Hg]DO Nathan Ball Work Phone: [facility]05-12-2023 08:11-0400 Body ibqnkr542.1 cmDO Nathan Ball Work Phone: [facility]05-12-2023 08:11-0400 Body kgDO Nathan Ball Work Phone: 1(196)[phone]05-10-2023 10:14-0400 Diastolic blood efldykxj09 mm[Hg]Nathan E Ball Work Phone: 1(380) [phone][facility] 250 DO Work Phone: 1(694) 659-446905-10-2023 10:14-0400Systolic blood hjulwikf241 mm[Hg] Nathan E Ball Work Phone: 1(303) [phone]-[employer]cn[employer] [facility] 250 DO Work Phone: 1(682) 680-262605-10-2023 10:04-0400Body djlemq318.1 cmBenjamin E Ball Work Phone: 1(333) [phone]-Czriw [facility] 250 DO Work Phone: 1(858) 238-531905-10-2023 10:04-0400Body mass index (BMI) [Ratio] 33.95 kg/j5Nuwyvfxn E Ball Work Phone: 1(346) [phone]-Gaoc[facility] 250 DO Work Phone: 1(266) 935-518905-10-2023 10:04-0400Body surface area Derived from formula1.99 z4Nkvlrlvr E Ball Work Phone: 1(329) [phone]-Kkumg [facility] 250 DO Work Phone: 1(368) 372-193605-10-2023 10:04-0400Body kpeqxs51.53 kgBenjamin E Ball Work Phone: 1(380) [phone]-Wbmhl [facility] [address] DO Work Phone: 1(381) 218-398905-10-2023 10:04-0400Diastolic blood stcbacwj64 mm[Hg] Nathan E Ball Work Phone: [phone]-Npatt [facility] 250 DO Work Phone: 1(268) 773-408105-10-2023 10:04-0400Heart rate45 /minBenjamin E Ball Work Phone: [phone]-Vxref [facility] [address] DO Work Phone: 1(763) 577-648105-10-2023 10:04-0400Systolic blood bibtkijn764 mm[Hg] Nathan E Ball Work Phone: [phone]-Pesmb [facility] [address] DO Work Phone: 1(556) 925-820004-19-2023 11:15-0400Body wxnbax750.1 cmBenjamin Ball Other [employer] Other 04-19-2023 11:15-0400Body mass index (BMI) [Ratio] 32.61 kg/b4Iwxockmg Ball Other [employer] Other 04-19-2023 11:15-0400Body orqsva12.91 kgBenjamin Ball Other [employer] Other 04-19-2023 11:15-0400Diastolic blood zxwmyffx63 mm[Hg] Nathan Ball Other [employer] Other 04-19-2023 11:15-0400Respiratory rate12 /minBenjamin Ball Other [employer] Other 04-19-2023 11:15-0400Systolic blood aksqouss153 mm[Hg] Nathan Ball Other [employer] Other 04-07-2023 12:15-0400Body tlockf657.1 cmBenjamin Ball Other [employer] Other 04-07-2023 12:15-0400Body mass index (BMI) [Ratio] 32.78 kg/p8Gymtteql Ball Other [employer] Other 04-07-2023 12:15-0400Body rjjher04.36 kgBenjamin Ball Other [employer] Other 04-07-2023 12:15-0400Diastolic blood xuyakhsi97 mm[Hg] Nathan Ball Other [employer] Other 04-07-2023 12:15-0400Respiratory rate12 /minBenjamin Ball Other [employer] Other 04-07-2023 12:15-0400Systolic blood hearwgrc081 mm[Hg] Nathan Ball Other [employer] Other 02-16-2023 10:00-0500Body uiuogv921.1 cmBenjamin Ball Other [employer] Other 02-16-2023 10:00-0500Body mass index (BMI) [Ratio] 32.53 kg/s9Ncudocuw Ball Other [employer] Other 02-16-2023 10:00-0500Body .68 kgBenjamin Ball Other [employer] Other 02-16-2023 10:00-0500Diastolic blood ianxdvsa83 mm[Hg] Nathan Ball Other [employer] Other 02-16-2023 10:00-0500Respiratory rate12 /minBenjamin Ball Other [employer] Other 02-16-2023 10:00-0500Systolic blood mm[Hg] Nathan Ball Other [facility] Other 02-06-2023 13:25-0500Body ctdswo356.4 cmLuis Mckenzie MD Work Phone: [facility]02-06-2023 13:25-0500Body temperature 97.11 [degF]Luis Mckenzie MD Work Phone: [facility]02-06-2023 13:25-0500Body kgvmwe87.36 kgLuis Mckenzie MD Work Phone: [facility]02-06-2023 13:25-0500Diastolic blood xkyuhdqh10 mm[Hg]Luis Mckenzie MD Work Phone: [facility]02-06-2023 13:25-0500Heart rate63 /min Luis Mckenzie MD Work Phone: [facility]02-06-2023 13:25-0500Respiratory rate 16 /minLuis Mckenzie MD Work Phone: [facility]02-06-2023 13:25-2365HlH5% (BldA) [Mass fraction]96 %Luis Mckenzie MD Work Phone: [facility]02-06-2023 13:25-0500Systolic blood yiplackq982 mm[Hg]Luis Mckenzie MD Work Phone: [facility]01-17-2023 15:00-0500Body jsojry544.1 cmBenjamin Ball Other [facility] Other 01-17-2023 15:00-0500Body mass index (BMI) [Ratio] 32.53 kg/w0Jdlqrqyx Ball Other [facility] Other 01-17-2023 15:00-0500Body alzefc77.68 kgBenjamin Ball Other [facility] Other 01-17-2023 15:00-0500Diastolic blood zpchmsor11 mm[Hg] Nathan Hathaway Other [facility] Other 01-17-2023 15:00-0500Respiratory rate12 /minNathan Hathaway Other [facility] Other 01-17-2023 15:00-0500Systolic blood sdppicqn647 mm[Hg] Nathan Hathaway Other [facility] Other 08-01-2022 10:06-0400Body qxqars529.4 cmLuis Mckenzie MD Work Phone: [facility]08-01-2022 10:06-0400Body temperature 97.59 [degF]Luis Mckenzie MD Work Phone: [facility]08-01-2022 10:06-0400Body kqsdei61.72 kgLuis Mckenzie MD Work Phone: [facility]08-01-2022 10:06-0400Diastolic blood leinuich31 mm[Hg]Luis Mckenzie MD Work Phone: [facility]08-01-2022 10:06-0400Heart rate50 /min Luis Mckenzie MD Work Phone: [facility]08-01-2022 10:06-0400Respiratory rate 16 /minLuis Mckenzie MD Work Phone: [facility]08-01-2022 10:06-1623XlT0% (BldA) [Mass fraction]96 %Luis Mckenzie MD Work Phone: [facility]08-01-2022 10:06-0400Systolic blood hbasvrru237 mm[Hg]Luis Mckenzie MD Work Phone: [facility] Encounters Encounter DateEncounter TypeCare ProviderFacilityStart: 08-21-2025 End: 94-41-3569eewcjjsgtqZglqcvrq Fransico DO Work Phone: [facility] 08-21-2025 End: 39-93-5027Lcbxrzy encounter procedureBenalberta Hathaway DO-[facility] Work Phone: Start: 08-19-2025 End: 97-80-9810Zpqxnbp encounter procedureKaia Krishna APRN-Ultrasound [facility] Work Phone: Start: 08-19-2025 End: 59-03-4376ygqmuhcxwjTdytxwge Fransico DO Work Phone: [phone]-EecctbkoizWhittier Hospital Medical CenterStart: 36-28-7834Jrd-patient / Non-visitCatherine Sebastian [facility] Work Phone: Start: 01-62-8006Whk-patient / Non-visitAgueda Saul MD-[facility] Work Phone: Start: 75-94-1109Xjv-patient / Non-visitAgueda Saul MD-[facility] Work Phone: Start: 16-91-0160Iij-patient / Non-visitSeth Baker DO-[facility] Work Phone: Start: 08-27-5053Fka-patient / Non-visitCatherine Sebastian [facility] Work Phone: Start: 40-45-0578Xgg-patient / Non-visitAgueda Saul MD-[facility] Work Phone: Start: 77-28-4097Hei-patient / Non-visitCher Singh DO-[facility] Work Phone: Start: 08-04-2025 End: 37-33-7453vdivvbxruhOxqdlvhi Fransico DO Work Phone: [facility] Work Phone: Start: 08-04-2025 End: 73-44-5517Cdcnosf encounter Armando Krishna APRN-[facility] V[facility] Surg Work Phone: Start: 07-21-2025 End: 63-38-7033jkfalqlonnOldsroxl Fransico DO Work Phone: [facility] Work Phone: Start: 07-21-2025 End: 94-96-8497Jdynyax encounter procedureNathan Hathaway DO-[facility] Work Phone: Start: 85-03-2081Xpw-patient / Non-visitValentin Leonard MD-[facility] Work Phone: Start: 07-15-2025 End: 74-33-0932ndfxxlkqxgRTAOWUEE E BALLFacility:[facility] Hospitaltart: 07-10-2025 End: 52-21-4230Gcrvahjgo encounterValentin Leonard MD Work Phone: Cancer Appts MCComment on above:Orders; Patient Update Start: 07-08-2025 End: 27-12-0977Wjrtxpecc encounterPaolo Casillas APRN.CNP Work Phone: Cancer Appts MCComment on above:ResultsStart: 07-08-2025 End: 00-62-6519Vzxoxbn encounter Spencer Casillas APRN.CNP Work Phone: Hematology/OncologyStart: 81-66-7825Mbb-patient / Non-visitFanny Bedoya APRN OVERNIGHT BABYSITTER-C-[facility] Work Phone: Start: 07-08-2025 End: 46-93-0891dzexdentxlXjtfrAngelia Casillas APRN.CNP Work Phone: Hematology/OncologyComment on above:Abnormal SPEP (Primary Dx); Primary hypertension; Hyperlipidemia, unspecified hyperlipidemia type; Heart disease; Edema, unspecified type; Monoclonal gammopathy of undetermined significance; Anemia in other chronic diseases classified elsewhereStart: 07-06-2025 End: 05-82-3599Vxmbwiajd encounterLudyly Sandoval SANDOVALNManuelCREATIVE SERVICES WRITER Work Phone: Hematology/OncologyComment on above:Lab Orders (nt) Start: 76-55-0587Chx-patient / Non-visitBenjamin Ball DO-[facility] Work Phone: Start: 54-51-9196Ivh-patient / Non-visitBenjamin Ball DO-[facility] Work Phone: Start: 06-19-2025 End: 22-44-7472zjbctayolhHbnpdufc Ball DO Work Phone: [facility] Work Phone: Start: 06-19-2025 End: 80-44-9313Rdctntl encounter procedureBenjamin Ball DO-[facility] Work Phone: Start: 05-19-2025 End: 81-53-3736kegczidikmUjlexmwz Ball DO Work Phone: [facility] Work Phone: Start: 05-19-2025 End: 46-11-2827Ijcbwap encounter procedureBenjamin Ball DO-[facility] Work Phone: Start: 03-19-2025 End: 24-51-7925flurlawdnqHfewzjie Ball DO Work Phone: [facility] Work Phone: Start: 03-19-2025 End: 97-96-5667Kkqagok encounter procedureBenjamin Ball DO Work Phone: [facility] Work Phone: Start: 52-83-2146Mnp-patient / Non-visitBenjamin Ball DO Work Phone: [facility] Work Phone: Start: 03-17-2025 End: 28-00-8348Kqkazxzogh hospital visit by physicianLaura Blair Echo/Vasc Room [address] [place], [place] [address]Comment on above:Essential hypertension; PalpitationsStart: 03-17-2025 End: 18-73-3193ohmcykybdfOQBUT [facility] Start: 03-13-2025 End: 95-58-3701Wrveeks encounter procedureBegonzálezalberta Hathaway DO Work Phone: [facility] Work Phone: Start: 02-25-2025 End: 39-76-3220Blrfok flowsheetReyna Esparza MD Work Phone: [facility] CI ENTStart: 02-25-2025 End: 62-24-8868Jdjzsp flowsGuy Esparza MD Work Phone: [facility] CI ENTStart: 02-25-2025 End: 72-70-6515Awmozq outpatient visit 15 minutesReyna Esparza MD Work Phone: [facility] CI ENTComment on above:Nontoxic multinodular goiter (CMS/HCC) (Primary Dx)Start: 02-25-2025 End: 79-65-1958bqgrtwtbnyXATGUL H TIMMISNot AvailableStart: 02-12-2025 End: 94-99-6777Krtqlykqf department patient visitBenalberta Hathaway DO Work Phone: [facility]-Emergency Room Work Phone: Start: 02-10-2025 End: 61-37-7706Mbpveqlun Result EncounterReyna Esparza MD Work Phone: [facility] External Department UnsolicitedStart: 02-10-2025 End: 33-96-2304Qgwnlvlid Result EncounterReyna Esparza MD Work Phone: n[facility] External Department UnsolicitedStart: 01-26-2025 End: 19-58-8235cugvkqhxznWNXCT [facility] AmbulatoryStart: 81-59-3624Vwu-patient / Non-visitBenjamin Ball DO Work Phone: [facility] Work Phone: Start: 01-22-2025 End: 42-45-6086ifkslzibhtWhbqbxpt Ball DO Work Phone: [facility] Work Phone: Start: 01-22-2025 End: 67-10-8918Ypnspvj encounter procedureBenjamin Ball DO Work Phone: [facility] Work Phone: Start: 01-12-2025 End: 01-03-5604Lduvul outpatient visit [facility] hospitalHolden Lambert [facility] Work Phone: uh [facility]Comment on above:BMI 33.0-33.9,adult (Primary Dx); Essential hypertension; Palpitations; ASHD (arteriosclerotic heart disease); Mixed hyperlipidemiaStart: 01-12-2025 End: 17-83-6499webiddqmwpMILPOArchbold - [facility] AmbulatoryStart: 12-29-2024 End: 87-16-2688kkfoouknfkFztnoabi Ball DO Work Phone: [facility] Work Phone: Start: 12-29-2024 End: 61-92-2176Vjmqdtd encounter procedureBenjamin Ball DO Work Phone: [facility] Work Phone: Start: 92-47-3110Txn-patient / Non-visitBenjamin Ball DO Work Phone: [facility] Work Phone: Start: 12-16-2024 End: 14-20-3702Yxwbion encounter procedureBenjamin Ball DO Work Phone: [facility] Work Phone: Start: 11-25-2024 End: 54-26-9719Iwiosy flowsheetReyna Esparza MD Work Phone: [facility] CI ENTStart: 11-25-2024 End: 83-09-8187Cuonjz Zoraida Esparza MD Work Phone: [facility] CI ENTStart: 11-25-2024 End: 05-48-4255Kzkzwr outpatient new 45 minutesReyna Esparza MD Work Phone: [facility] CI ENTComment on above:Thyroid nodule (CMS/HCC) (Primary Dx)Start: 11-25-2024 End: 04-25-5183xlskdqgtorRDWLOU H TIMMISNot AvailableStart: 50-55-8032zdhadpttrm Nathan Ball DO Work Phone: [facility] Work Phone: Start: 14-31-7198Syk-patient / Non-visitBenjamin Ball DO Work Phone: [facility] Work Phone: Start: 11-17-2024 End: 15-37-3941Eiurzsypi to same day surgery centerBenjamin Ball DO Work Phone: [facility]-Ultrasound [facility] [place] Work Phone: Start: 11-17-2024 End: 60-66-3011ynydynsocxEdygdkvj Ball DO Work Phone: [facility] Work Phone: Start: 10-09-2024 End: 26-38-2377TbcacmNlbknaq [facility] Work Phone: noms OPHTStart: 10-08-2024 End: 82-92-5026Zhmzif outpatient visit 25 minutesEdinson Perry DO Work Phone: uh FirelandsComment on above:ASHD (arteriosclerotic heart disease); Essential hypertension; BMI 33.0-33.9,adult; Former smoker; S/P PTCA (percutaneous transluminal coronary angioplasty); Mixed hyperlipidemia; Coronary arteriosclerosis after percutaneous transluminal coronary angioplasty (PTCA)Start: 10-08-2024 End: 64-41-7375msbmhadtwsRSBMUEDClinch Memorial Hospital AmbulatoryStart: 78-46-2703Ihy-patient / Non-visitBegonzálezalberta Hathaway DO Work Phone: [facility] Work Phone: Start: 09-11-2024 End: 52-48-9764vldqmmafycGgbkjdtfsMer[facility] Health [facility] Work Phone: Start: 09-11-2024 End: 75-67-3371Ddpjail encounter procedureUn[facility] Work Phone: Start: 68-31-0621Mzg-patient / Non-visitUn[facility] Health [facility] Work Phone: Start: 07-16-2024 End: 14-45-2259anjhireehkYodreyvibMercy Health [facility] Work Phone: Start: 07-16-2024 End: 05-14-8693Bhiqqsk encounter procedureUnc Health [facility] Work Phone: Start: 06-03-2024 End: 56-74-7828bdrnupeokgLA Nathan Reclip[employer]It Work Phone: [facility] Work Phone: Start: 06-03-2024 End: 48-36-1814Uappjoy encounter procedureDO Nathan Reclip.It Work Phone: [facility] Work Phone: Start: 64-98-6865Kmf-patient / Non-visitDO Nathan Re[employer].It Work Phone: [facility] Work Phone: Start: 34-21-4444Wyd-patient / Non-visitDO Nathan Re[employer].It Work Phone: [facility] Work Phone: Start: 04-28-2024 End: 84-60-0700rhcafsqytlGTCGBESG D ZAHLERNot AvailableStart: 04-21-2024 End: 42-83-7503Bnovgt outpatient visit 15 minutesHolden Rosado DIRECTOR BLOOD BANK-CREATIVE SERVICES WRITER Work Phone: uh [facility]athamComment on above:Essential hypertension (Primary Dx); ASHD (arteriosclerotic heart disease); Mixed hyperlipidemia; BMI 32.0-32.9,adultStart: 04-21-2024 End: 90-46-2299cjoidvkviqNJFVH [facility] AmbulatoryStart: 03-12-2024 End: 43-41-6205Tsnikhexxp hospital visit by Derrick Zaidi 1[facility] HospitalComment on above:ASHD (arteriosclerotic heart disease)Start: 03-05-2024 End: 57-48-6306uiivuwbvyuDU Nathan Re[employer].It Work Phone: [facility] Work Phone: Start: 03-05-2024 End: 63-03-0114Vzmlyxu encounter procedureDO [employer] Work Phone: [facility]-Lab [facility] [place] Work Phone: Start: 03-05-2024 End: 97-77-8282Iqzvfa outpatient visit 25 minutesHolden Rosado DIRECTOR BLOOD BANK-CREATIVE SERVICES WRITER Work Phone: uh [facility]athamComment on above:ASHD (arteriosclerotic heart disease) (Primary Dx); Essential hypertension; Mixed hyperlipidemia; BMI 32.0-32.9,adultStart: 02-27-2024 End: 48-35-3683Izdvqws encounter procedureDO [employer] Work Phone: [facility] GroupC[facility] Work Phone: Start: 92-09-7756Vsi-patient / Non-visitDO [employer] Work Phone: [facility] Work Phone: Start: 90-47-1686Eln-patient / Non-visitDO Nathan Hathaway Work Phone: [facility] Work Phone: Start: 46-05-0858Dzi-patient / Non-visitDO Nathan Hathaway Work Phone: [facility] Work Phone: Start: 74-08-8997Deg-patient / Non-visitDO Nathan Hathaway Work Phone: [facility] Work Phone: Start: 02-13-2024 End: 85-64-1535bqvncxwexcJsxrwbskcMer[facility] Health [facility] Work Phone: Start: 02-13-2024 End: 70-73-1238Pogjhkt encounter procedureUnc Health [facility] Work Phone: Start: 13-89-0638Ovy-patient / Non-visitFirelands Physician Group-[facility] Work Phone: Start: 02-01-2024 End: 37-84-0329gdbkyjgprjXfxazpsquMercy Health [facility] Work Phone: Start: 02-01-2024 End: 84-60-6315Bbrnfck encounter procedureUnc Health Ch[facility] GroupZanes[facility] Work Phone: Start: 01-04-2024 End: 89-54-9101lifpcwfegxMlzofepx Ball Other [employer] Other Start: 36-83-9270Nwemnbnzq encounterBenairam HathawayUniversity Hospitals Portage Medical Centertart: 43-59-8305Pyw-patient / Non-visitFirwaterburys Physician Group-[facility] Work Phone: Start: 11-27-2023 End: 63-00-9951frtbrivuqmIhwykgll [employer] Other [employer] Other Start: 24-08-3550Qrmkezfgy encounterBenjamin BallFPG [facility] ClinicStart: 11-02-2023 End: 54-59-2903jldwrtybasRzcsdrox Ball Other no[employer]Doc [facility] Other Start: 40-10-3172Gmlgty outpatient visit 25 minutes Nathan BallFP[facility] ClinicStart: 10-02-2023 End: 52-36-6880pkhyglxgggAzpbrvzi Ball Other [facility] Other Start: 27-85-2638Ucngzd outpatient visit 25 minutes Nathan BallFP[facility] ClinicStart: 09-26-2023 End: 32-67-9754tcjzpffcywSmlupasu Ball Other [facility] Other Start: 88-91-5722Vahrxasqe encounterBenjamin BallFPG [facility] ClinicStart: 09-21-2023 End: 33-37-2706xtpufpyzkaLdktusro Ball Other [facility] Other Start: 61-09-9209Szaxjyyhf encounterBenjamin BallFPG [facility] ClinicStart: 2023 End: 27-56-1642dnkuyyekogXinisvyq Ball Other [facility] Other Start: 96-50-4122Jiahgwkmw encounterBenjamin BallFP[facility] ClinicStart: 09-13-2023 End: 09-96-8086ahnmqamnigHofqbofo Ball Other [employer] [facility] Other Start: 08-36-8299Kuflpxsbb encounterBenjamin BallFPG [facility] ClinicStart: 09-11-2023 End: 81-64-7259lfoohsreyaCovuxzre Ball Other [employer] Other Start: 50-19-4410Usebvl outpatient visit 15 minutes Nathan BallFP[facility] ClinicStart: 08-16-2023 End: 29-43-8214hzypxitpnpBlsxgnwz Ball Other [employer] [facility] Other Start: 90-21-4689Tvtoryyzo encounterBenjamin BallFP[facility] ClinicStart: 07-31-2023 End: 15-53-2785heytpfhzerPwmopvrh Ball Other [employer] Other Start: 05-67-9582Gtcmutwqq encounterBenjamin BallFP[facility] ClinicStart: 07-30-2023 End: 36-22-2988pctkgormoqMqvgayqj Ball Other [employer] Other Start: 08-65-0246Paxsfdupy encounterBenjamin BallFP[facility] ClinicStart: 07-19-2023 End: 56-46-0026vgxioeiiiuDgdsclrn Ball Other [employer] [facility] Other Start: 11-08-6669Owltesgkl encounterBenjamin BallFP[facility] ClinicStart: 07-18-2023 End: 36-64-4323cqzcbuuauuYlfakgtp Ball Other [employer] Other Start: 12-09-4599Keswygnmb encounterBenjamin BallFP[facility] ClinicStart: 07-17-2023 End: 63-34-3972kflwpnwunjYyfiewcp Ball Other [employer] Other Start: 19-37-2262Cgvevlj evaluation of patient and reportBenjamin BallFPG [facility] ClinicStart: 06-28-2023 End: 35-93-8161rtzqgyvxqzYbbotzbm Ball Other [employer] Other Start: 45-19-2478Jxyzktmnj encounterBenjamin BallFP[facility] ClinicStart: 06-25-2023 End: 20-09-6379ajnazyyryyChdvgshm Ball Other [employer] [facility] Other Start: 56-16-2502Jqabvheeo encounterBenjamin BallFP[facility] ClinicStart: 06-21-2023 End: 28-88-4285wfygvordzxNyydqrli Ball Other [facility] Other Start: 75-17-7183Npmlzmcwy encounterBenjamin BallFP[facility] ClinicStart: 06-19-2023 End: 25-85-1714pjwpyadqcxSxgjbuku Ball Other [facility] Other Start: 06-48-1228Vigmtvxwa encounterBenjamin BallFP[facility] ClinicStart: 06-18-2023 End: 29-64-3844sbruwdaujfMcxtcoym Ball Other [facility] Other Start: 18-42-1843Qyvvyhpsm encounterBenjamin BallFP[facility] ClinicStart: 06-15-2023 End: 47-50-5255febdntctptBcfiwkdn Ball Other [employer] Other Start: 74-90-5445Tpcxanfjb encounterBenjamin BallFP[facility] ClinicStart: 06-08-2023 End: 57-80-9372sxulwnnhjpBemevnqc Ball Other [employer] Other Start: 49-61-3927Xbuivj outpatient visit 15 minutes Nathan BallFP[facility] ClinicStart: 15-28-7484Nxjiwhlct encounterNatcameron Manzanares RNHematology/OncologyComment on above:ResultsStart: 06-04-2023 End: 76-34-5892qnccnbvqanOzfwu R Murphy MD Work Phone: [employer] Other Comment on above:Abnormal SPEP (Primary Dx); Anemia, unspecified type; Neuropathy - (NOS); Heart diseaseStart: 06-04-2023 End: 32-68-5763Abgszyu encounter procedureLuis Mckenzie MD Work Phone: SANDUSKYStart: 89-84-1461Pftabvphf encounterBenjuanairam Hathaway Medical ClinicStart: 06-01-2023 End: 98-48-9302tbrmaspmdkWhxogkzp Ball Other [employer] Other Start: 49-13-3889Pboczodcu encounterBenjuanmin YelenaG [facility] Medical ClinicStart: 05-25-2023 End: 73-76-9339ojnvxfarmvAyhgpjcb Ball Other [employer] Other Start: 78-74-5003Xqqqrydgppob care manage srvc 14 day dischargeBenalberta Hathaway Medical ClinicStart: 05-17-2023 End: 96-37-8564Qrtythfxeg and management of inpatientDO Nathan Hathaway Work Phone: [facility] [place] [facility] Work Phone: Start: 05-17-2023 End: 39-10-1951jdvdnlgooxh encounterDO Nathan Hathaway Work Phone: [facility] Work Phone: Start: 05-16-2023 End: 96-62-0336eujsarfhfmIldbmagv Ball Other [employer] Other Start: 27-68-3398Kxfimn outpatient visit 25 minutes Nathan BallFP[facility] ClinicStart: 05-09-2023 End: 11-99-1321eeeevslbfuNhaxlvvi Ball Other [employer] Other Start: 64-67-4157Lxfdgg outpatient visit 25 minutes Nathan BallFP[facility] ClinicStart: 84-58-8668Ryjykzild encounterBenjamin E Ball Work Phone: [phone]-Vdvnm [facility] [address] DO Work Phone: Start: 04-26-2023 End: 94-60-7730ifhlzwverbAknvpmhe Ball Other [employer] Other Start: 86-97-0782Dmudey outpatient visit 25 minutes Nathan [facility]FP[facility] ClinicStart: 85-57-4111Apdbwyzss encounterBenjamin BallFP[facility] ClinicStart: 04-18-2023 End: 67-55-6120rrjkftjbdsIlheutzb Ball Other [employer] Other Start: 15-25-4504Glrxfq outpatient visit 25 minutes Nathan BallFP[facility] ClinicStart: 25-92-8540Yoylkoznp encounterBenjamin BallFP[facility] ClinicStart: 03-27-2023 End: 40-48-9525gbuiuckopoKqdidynh Ball Other [employer] Other Start: 13-00-9480Jtikndfcr encounterBenjamin BallFP[facility] ClinicStart: 03-15-2023 End: 80-36-0076utxazaubrtFwqmogqe Ball Other [employer] Other Start: 62-18-7036Qpqnzi outpatient visit 25 minutes Nathan [facility] ClinicStart: 03-09-2023 End: 55-35-7253hjxziqhyvsGyManuel Perryskyrockit Other Start: 70-53-9586Yzfndddno encounterBenjamin BallZHAOG [facility] Medical ClinicStart: 10-86-6667HWWGJVPBO, Provider: Edinson Perry, Status: Pen, Time: 10:00 AMBenjamin Chinyere Ball Work Phone: [phone]-Desrz [facility] [address] DO Work Phone: Start: 03-09-2023 End: 26-65-6056Rivqoelyy to same day surgery shattuckDO Nathan Hathaway Work Phone: [facility]-[employer] [facility] Work Phone: Start: 03-08-2023 End: 59-83-7444wmieszfzheEQ Nathan Hathaway Work Phone: [facility] Work Phone: Start: 03-08-2023 End: 65-06-9292Lcrdbxp encounter procedureDO Nathan Hathaway Work Phone: [facility]tv-[employer] Work Phone: Start: 63-52-1781Poszeo consultation new/estab patient 80 minBenjamin Chinyere Ball Work Phone: [phone]-Rfhxt [facility] 250 DO Work Phone: Start: 29-97-2566oebrazpprfEd. Edinson Perry Facility:[id number]: 03-05-2023 End: 84-63-2410vafycivbeiQwvebecs Ball Other noTraveDoc [facility] Other Start: 61-69-2434Xhfgknohq encounterBenalberta Hathaway Medical ClinicStart: 03-01-2023 End: 54-23-3416flewdtusjbNL BENJAMIN BALLFacility:I5Evvqk: 02-27-2023 End: 05-56-9487qirnphbagbSihdkryr Ball Other noskyrockit Other Start: 41-57-0128Vanitsbix encounterBenjamin BallFPG [facility] Medical ClinicStart: 02-20-2023 End: 26-70-3047tpctlzcjsbTwcvirwv Ball Other noskyrockit Other Start: 11-29-9444Cowxcmhnx encounterBenjamin BallFPG [facility] ClinicStart: 02-14-2023 End: 21-17-0360luhirhggxtAfkpfjbe Ball Other noskyrockit Other Start: 31-64-2910Ytkwev outpatient visit 25 minutes Nathan BallFPG [facility] ClinicStart: 40-15-3011Skevlhqtt encounterBenjamin BallFPG [facility] ClinicStart: 02-11-2023 End: 18-83-2440qduselsootNdnpmsvm Ball Other noskyrockit Other Start: 82-00-8234Kmashaxvd encounterBenjamin BallFPG [facility] ClinicStart: 02-08-2023 End: 44-64-3081Plkfdvxxei and management of inpatientDR NATHAN BALLFacility:H1 Start: 02-02-2023 End: 35-70-1567ayiiqlsjkpQkhktnro Ball Other noskyrockit Other Start: 22-45-6002Edhdks outpatient visit 25 minutes Nathan BallFP[facility] ClinicStart: 01-08-2023 End: 34-75-0575kosbatsijrFY NATHAN BALLFacility:E3Lakgf: 12-21-2022 End: 67-42-3232ihfejkxbbmGqfjtbpw Ball Other noskyrockit Other Start: 26-64-6890Pvegruwnu encounterBenjamin BallFPG [facility] ClinicStart: 12-20-2022 End: 50-98-5840bhimkkzvycKfzlsusg Ball Other [employer] Other Start: 42-76-5990Nsqzbfxkw encounterBenalberta Hathaway Medical ClinicStart: 12-14-2022 End: 13-68-3995sgsognhhwmCyvfbgmk Ball Other [employer] Other Start: 11-80-2515Ylgmbgq encounter procedureBenalberta Hathaway Medical ClinicStart: 12-04-2022 End: 97-05-9050sxucopiaptAxknz R Murphy MD Work Phone: Hematology/OncologyComment on above:Abnormal SPEP (Primary Dx); Neuropathy - (NOS); Lung nodulesStart: 12-04-2022 End: 07-85-5704Yvbwxds encounter procedureLuis Mckenzie MD Work Phone: SANDUSKYStart: 11-23-2022 End: 48-06-7231oyqwjuuwmzWpgnzehc Ball Other [employer] Other Start: 97-93-7362Nhbuvtitm encounterBenalberta Hathaway Medical ClinicStart: 11-16-2022 End: 70-37-3341jqvckusdaaMO NATHAN BALLFacility:V1Hujqh: 11-14-2022 End: 93-32-4902imffvfbbjzOzxhtier Ball Other [employer] Other Start: 60-30-9037Cxwjrv outpatient visit 25 minutes [facility] ClinicStart: 09-11-2022 End: 29-52-5876wwyqienqzeUQ NATHAN BALLFacility:F9Rpgea: 31-37-4845Eshupxgje encounterNatcameron Manzanares RNHematology/OncologyComment on above:ResultsStart: 08-28-2022 End: 19-43-5640Sughbzrcdw hospital visit by physicianArrival Time Radiology Work Phone: Radiology Pet CTComment on above: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]Start: 05-29-2022 End: 46-63-8124Nuhzi (SP) OfficeLuis Mckenzie MD Work Phone: Hematology/OncologyComment on above:Abnormal SPEP (Primary Dx); Neuropathy - (NOS); Disorder of adrenal gland (HCC); Lung nodulesStart: 61-43-6275Uybbqzqrh encounterLuis Mckenzie MD Work Phone: Hematology/OncologyComment on above:Lab OrdersStart: 05-04-2022 End: 33-63-4657evrhahpcndJF NATHAN HATHAWAYFacility:D1Yaqub: 88-06-7535Kkyju health examinationBenjuanLavish Skate Other [facility] Other Procedures DateProcedureProcedure DetailPerforming ClinicianStart: 76-76-8966Iwtigt scan of lower limb veinsBenBlack Card Media DO Work Phone: Start: 74-38-2672Fuivu volume recorder pneumoplethysmographyBenjamin Ball DO Work Phone: Start: 51-55-2107Grufp chest X-rayBenjamin Ball DO Work Phone: Start: 25-19-4147Lt soft tissue head & neck real time imge Cindy Esparza MD Work Phone: Start: 18-41-8978NwvouqcltjDczojgtn Ball DO Work Phone: Start: 61-61-2818Wa strs tst xers&/or rx cont ecg trcg onlyHolden Rosado DIRECTOR BLOOD BANK-CREATIVE SERVICES WRITER Work Phone: Start: 67-95-7345Ejopfaa of placement of stent for coronary artery diseaseS/P coronary artery stent placementHolden Rosado DIRECTOR BLOOD BANK-CREATIVE SERVICES WRITER Work Phone: Start: 18-47-9738KT angiography of thoraxDO [employer] Work Phone: Start: 57-48-6405Wfuqzm scan of lower limb veinsDO Nathan Hathaway Work Phone: Start: 42-06-2070BH Ivus Initial VesselDO Nathan Hathaway Work Phone: Start: 51-15-6503VO LHC & COR AngioDO Nathan Hathaway Work Phone: Start: 15-04-5742BQ Stent 1st Vessel LAD DESDO Nathan Hathaway Work Phone: Start: 64-92-5525WG Stent 1st Vessel RCA DESDO Nathan Hathaway Work Phone: Start: 70-65-2125Nw abdomen & pelvis w/contrast Maynor Mckenzie MD Work Phone: Start: 60-96-6604Os thorax w/contrast Maynor Mkcenzie MD Work Phone: Start: 52-68-9437Zrkkh depression screening assessment Luis Mckenzie MD Work Phone: Start: 56-32-5507Bbggp depression screening assessment Luis Mckenzie MD Work Phone: Start: 94-53-1399Eklkrhald for malignant neoplasm of colonBenjamin Ball Other Start: 35-27-6680Zcncgvodt for osteoporosisBenjamin Ball Other Depression screeningBenjamin Ball Other HysterectomyBenjamin E Ball Work Phone: Screening for malignant neoplasm of breastBenjamin Ball Other Screening for malignant neoplasm of breastBenjamin Ball Other Total colonoscopyBenjamin E Ball Work Phone: Comment on above:2012; Plan of Treatment DateCare ActivityDetailAuthorStart: 46-37-5899Zvbbidqy ScreeningDiabetes ScreeningCleuniversity hospitals [facility] ClinicStart: 72-59-6409Qrzrihau ScreeningDiabetes Screening [place] ClinicStart: 66-80-2230Bgqaxnqi ScreeningDiabetes ScreeningCleuniversity hospitals [facility]aug[facility] ClinicStart: 04-59-5622ISZMBPBT SCREENDIABETES SCREENArvada ClinicStart: 11-15-3450VCJZLXTG SCREENDIABETES SCREENArvada ClinicStart: 10-27-2025 End: 69-29-3163Ohqocyg encounter pbmbedlkq82/30/2025 2:10 PM EST Office Visit [facility] [address] [facility] [address] [place] [address] Edinson Perry, [address] [facility] [address] [place] [address] [facility] CenterStart: 10-07-2025 End: 72-95-0899hotmgftznd29/10/2025 3:00 PM EST Visit (SP) Office Hematology/Oncology [address] [place], [place] [phone] Valentin Leonard MD [address] [place] [place] [address] 3 month ELDON with labHematology/OncologyComment on above:3 month ELDON with labStart: 10-07-2025 End: 03-01-7797Xutoxxk encounter naalcmsjl28/10/2025 2:45 PM EST Office Visit [facility] [address] [place] [address] 3 month ELDON with labNortKalamazoo Psychiatric Hospital LaboratoryComment on above:3 month ELDON with labStart: 89-80-7117YDJJZHFA SCREEN DIABETES SCREENArvada ClinicStart: 67-24-4478Mefprlg referralSelect [facility]ty [facility] Work Phone: Start: 07-08-2025 End: 40-31-3709cljugqbrsr13/10/2025 10:00 AM EDT Visit (SP) Office Hematology/Oncology [address] [place] [address] Paolo Casillas, THONY.CREATIVE SERVICES WRITER [address] [place] [address] Dr Hathaway 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 MGUSHematology/OncologyComment on above:Dr Hathaway 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 MGUSStart: 07-08-2025 End: 32-85-8823Rjumctx encounter asbhkgcmm25/10/2025 10:00 AM EDT Office Visit [facility] [address] [place] [address] [place] [address] Labs Per January Staff MessageNortKalamazoo Psychiatric Hospital LaboratoryComment on above:Labs Per January Staff MessageStart: 07-06-2025 End: 37-43-4479BNM W Auto Differential panel - BloodCOMPLETE BLOOD COUNT AND DIFFERENTIAL Lab Routine Abnormal SPEP Expected: 07/06/2025, Expires: 10/05/2025 [facility] Work Phone: Comment on above:Expected: 07/06/2025, Expires: 10/05/2025Start: 07-06-2025 End: 89-37-5298Hebssqgodfetr metabolic 2000 panel - Serum or PlasmaCOMPREHENSIVE METABOLIC PANEL Lab Routine Abnormal SPEP Expected: 07/06/2025, Expires: 10/05/2025leveland ClinicComment on above:Expected: 07/06/2025, Expires: 10/05/2025Start: 07-06-2025 End: 53-58-5853GPORORRILC PROTEIN, SERUM (BLOOD)MONOCLONAL PROTEIN, SERUM (BLOOD) Lab Routine Abnormal SPEP Expected: 07/06/2025, Expires: 10/05/2025 [facility]-FairhillComment on above:Expected: 07/06/2025, Expires: 10/05/2025Start: 07-06-2025 End: 88-25-8221HKYQVXC ELECTROPHORESIS SERUM W/INTERPPROTEIN ELECTROPHORESIS SERUM W/INTERP Lab Routine Abnormal SPEP Expected: 07/06/2025, Expires: leveland ClinicComment on above:Expected: 07/06/2025, Expires: 10/05/2025 Start: 73-96-8104Sijerudws vaccinationInfluenza Vaccine (#1)[facility] Start: 71-10-7956WMSHXXZO SCREENDIABETES SCREENSt. Mary's Medical Center, [place]ont[place] Campustart: 05-04-2025 COVID-19 Vaccine ( season)COVID-19 Vaccine () [facility]: 04-29-2025 End: 94-56-9635Jeautnx encounter hynncxzys82/02/2025 9:30 AM EDT Office Visit [facility] [address] [place] [phone] Fercho Tse DO [address] [place] [address] [facility] ARIELLE OPHTStart: 03-17-2025 End: 81-41-5984Dnrywsa encounter zgokwmrvd96/20/2025 10:45 AM EDT Appointment [place] [address] [place] [phone] [facility]Start: 02-25[facility]2025 End: 73-17-5406Cdwfiom encounter procedureNOMS CI ENTComment on above:Arrived Start: 01-26-2025 End: 59-37-3710Nnsekmncupbr / ancillary services wytoorthck96/31/2025 3:00 PM EDT Ancillary Procedure [address] [place] [address] QB FirelandsStart: 01-12-2025 End: 48-88-7032Jjawfp monitor studyHolter Or Event Plate Developer Cardiac Services Routine Palpitations Expected: 01/12/2025 (Approximate), Expires: 01/12/2026[facility] Service Area Work Phone: Comment on above:Expected: 01/12/2025 (Approximate), Expires: 01/12/2026Start: 01-12-2025 End: 38-89-7373BA Heart TransthoracicTransthoracic Echo Complete Echocardiography Routine Essential hypertension Palpitations Expected: 0 01/12/2025 (Approximate), Expires: 01/12/2027[facility] Work Phone: Comment on above:Expected: 01/12/2025 (Approximate), Expires: 01/12/2027Start: 11-25-2024 End: 24-03-6934Wtngzqa encounter aapjovyyr34/28/2025 2:00 PM EST Office Visit [facility] [address] [place] [address] Reyna Esparza MD [address] [place] [address] ArrivedNOMS CI ENTComment on above:ArrivedStart: 29-92-9429Ewnigql referralSelect Medical Specialty [facility] Work Phone: Start: 53-82-8024MqduhqowrTrumbull Regional Medical Center Start: 18-04-0684OkjnuyafziKtfydqaxlKettering Health Springfieldtart: 10-29-2024 Advance Directive DiscussionAdvance Directive DiscussionSt. Mary's [facility], [place] Campustart: 10-08-2024 End: 29-93-3374Iddfyzb encounter paorgiaos11/11/2024 10:40 AM EST Office Visit [place] [address] [facility] [address] [place] [phone] Edinson Perry [address] [place] [address] [facility] CenterStart: 54-20-8514Pebvs-19 Vaccine ( season)Covid-19 Vaccine ( season)[facility] Campustart: 43-28-8728Crfxysvdy vaccinationBluffton HospitalStart: 04-21-2024 End: 49-94-7730Soqtk metabolic 2000 panel - Serum or PlasmaBasic Metabolic Panel Lab Routine ASHD (arteriosclerotic heart disease) Expected: 04/21/2024 (Approx imate), Expires: 04/21/2025[facility] Service Area Work Phone: Comment on above:Expected: 04/21/2024 (Approximate), Expires: 04/21/2025Start: 04-21-2024 End: 23-56-6704Whrysch encounter weyebbpke36/24/2024 10:30 AM EDT Office Visit [facility] [address] [facility] [address] [place] [address] Holden Rosado, DIRECTOR BLOOD BANK-CREATIVE SERVICES WRITER [address] [place] [address] [facility] CenterStart: 03-12-2024 End: 47-97-7773Xsezcxr encounter gbailoubb48/15/2024 10:15 AM EDT Appointment [facility] [address] [facility] [address] [place] [phone] [facility]Start: 03-12-2024 End: 76-67-3825Nmhpfph encounter procedureThe Hospitals of Providence East Campusia [facility]athamStart: 03-05-2024 End: 69-56-4552Ifaxh metabolic 2000 panel - Serum or PlasmaBasic Metabolic Panel Lab Routine Essential hypertension Expected: 03/05/2024 (Approximate), Expires: 03/05/2025[facility]Bu[facility] Work Phone: Comment on above:Expected: 03/05/2024 (Approximate), Expires: 03/05/2025Start: 03-05-2024 End: 56-36-8353WG Heart Perfusion W stress and W radionuclide IVNuclear Stress Test Cardiac Nuclear Medicine Routine ASHD (arteriosclerotic heart disease) Expected: 03/05/2024 (Approximate), Expires: 03/05/2026[facility] Service Area Work Phone: Comment on above:Expected: 03/05/2024 (Approximate), Expires: 03/05/2026Start: 07-83-2256YdlnmyneztiiquuySibgvrfhtfwuqrAisnuonrtw [facility] ClevelandStart: 40-33-6659Nxoozgk Directive DiscussionAdvance Directive DiscussionSt. Mary's [facility], [place] Campustart: 39-96-3090SDZ, Provider: Edinson Perry, Status: Pen, Time: 11:20 AMFUV, Provider: Edinson Perry, Status: Nahid, Time: 11:20 [facility]MSwed[facility] DO Work Phone: Start: 63-80-2597SWYSF-19 Vaccine ( season) COVID-19 Vaccine ( season)[facility] HospitalStedmond: 84-80-5262Bfobgefih vaccinationINFLUENZA (#1)[facility] Campustart: 05-29-2023 Adult depression screening assessmentDEPRESSION SCREENINGSt. [facility]'s [facility], [place] Campustart: 47-26-2501AXR, Provider: Edinson Perry, Status: Pen, Time: 10:20 AMFUV, Provider: Edinson Perry, Status: Pen, Time: 10:20 AMMPNorth Valley Health Center 250 DO Work Phone: Start: 84-10-4407RthddvxmcTrumbull Regional Medical Center Start: 54-44-3803Vvcgdrah admissionKettering Health Springfieldtart: 01-38-6936TneesaxveKettering Health Springfieldtart: 79-09-7033XZDPS-19 VACCINE (6 - Pfizer series)COVID-19 VACCINE (6 - Pfizer series)[facility] Campustart: 47-42-9639Bmyta depression screening assessmentDEPRESSION SCREENINGSt. [facility]'s [facility], [place] Campustart: 04-53-4044NQJTCEH DIRECTIVE DISCUSSIONADVANCE DIRECTIVE DISCUSSION [facility] Campustart: 26-61-9795RGOMTERBXT ASSESSMENTDEPRESSION ASSESSMENT [facility] Campustart: 52-85-4864DIMJD-19 Vaccine (3 - Pfizer risk series)COVID- 19 Vaccine (3 - Pfizer risk series)[facility]: 59-36-4697Yqjiczwlo vaccinationINFLUENZA (#1)[facility] Campustart: 03-25-2022 COVID-19 VACCINE (5 - Booster for Pfizer series)COVID-19 VACCINE (5 - Booster for Pfizer series)[facility] Campustart: 47-81-9073HZPEDVH DIRECTIVE DISCUSSION ADVANCE DIRECTIVE DISCUSSIONSt. Mary's [facility], [place] Campustart: 74-31-8262OOEKZPZNHS ASSESSMENTDEPRESSION ASSESSMENTSt. [facility], [place] Campustart: 54-22-4089Ievrkhlt Vaccine (3 of 3)Shingrix Vaccine (3 of 3)[facility] Campustart: 22-19-6995Jhqslm Vaccines (2 of 2)Zoster Vaccines (2 of 2)[facility]: 88-11-0378GHRWETCI VACCINE (2 of 2)SHINGRIX VACCINE (2 of 2)[facility] Start: 71-18-5173GGZ High Risk: (Elderly (60+) or Population) (1 - 1- dose 75+ series)RSV High Risk: (Elderly (60+) or Population) (1 - 1- dose 75+ series)[facility]: 20-91-9544CKG Vaccine (1 - 1-dose 75+ series)RSV Vaccine (1 - 1-dose 75+ series)[facility] Campustart: 19-60-0869NJmQ/Tdap/Td Vaccines (1 - Tdap)DTaP/Tdap/Td Vaccines (1 - Tdap) [facility]: 55-36-0971Qcocv microalbumin profile DTaP,Tdap,Td Vaccine (1 - Tdap)[facility] Campustart: 07-65-2291UFOZ DENSITYBONE DENSITYSt. Mary's Medical [facility], [place] Campustart: 78-93-6661NYXBJAEUQIZK: 65+ (1 - PCV) PNEUMOCOCCAL: 65+ (1 - PCV)[facility] Campustart: 67-84-8611Tmmptkvms for osteoporosisBone Density ScreeningSt. Mary's Medical [facility], [place] Campustart: 11-01-2007Medicare Annual Wellness VisitMedicare Annual Wellness VisitSt. Mary's Medical [facility], [place] Campustart: 67-76-1722LZK patients and/or patients aged 60+ years (1 - 1-dose 60+ series)RSV patients and/or patients aged 60+ years (1 - 1-dose 60+ series)[facility]: 36-25-0448QZaO/Tdap/Td Vaccines (1 - Tdap)DTaP/Tdap/Td Vaccines (1 - Tdap)[facility] Start: 38-75-5803Iekjq microalbumin profileDTAP,TDAP,TD (1 - Tdap)[facility] Campustart: 56-93-6493Nmgqeta ScreeningAnxiety ScreeningSt. Mary's [facility], [place] Campustart: 27-73-2051Xjulypfaeb ScreeningDepression ScreeningSt. Mary's Medical [facility], [place] Campustart: 95-54-0317Ciocmbyh mellitus screeningDiabetes ScreeningUnKettering Health Hamilton: 04-78-8287Zovhrkxzav measurementCreatinine LevelUnKettering Health Hamilton: 48-77-4815Uhoao panelLipid PanelCommunity Memorial Hospital: 1942Medicare Annual Wellness VisitMedicare Annual Wellness Visit (AWV)[facility]: 1940 Potassium measurementPotassium LevelUnKettering Health Hamilton: 28-67-5184Vvsfqlbof for osteoporosisBone Density ScanBluffton HospitalComprehensive metabolic 2000 panel - Serum or PlasmaTrumbull Regional Medical Center End: 02-57-3533Dp abdomen & pelvis w/contrast materialCT ABD/PEL W IVCON Radiology Routine Disorder of adrenal gland (HCC) 1 Occurrences starting 05/29/2022 until 06/28/2023[facility] Work Phone: Comment on above:1 Occurrences starting 05/29/2022 until 06/28/2023 End: 42-29-2196IH CHEST W IVCONCT CHEST W IVCON Radiology Routine Lung nodules 1 Occurrences starting 05/29/2022 until 06/28/2023[facility] Work Phone: Comment on above:1 Occurrences starting 05/29/2022 until 3Patient EducationMercy Health Ctr Work Phone: Patient referralMercy Health Ctr Work Phone: End: 70-73-1878JC Heart TransthoracicMIMBRES MEMORIAL HOSPITAL Service Area Work Phone: Comment on above:Once for 1 Occurrences starting 03/17/2025 until 03/17/2025XR Knee - right 4 ViewsHendersonville Medical Center Immunizations Immunization DateImmunizationNotesCare EeyrwapuAeyshmgv57-84-7166cbdrzhybw, high dose seasonal, preservative-freeTrumbull Regional Medical Center09-18-2024 influenza virus vaccine, unspecified formulationPaolo Casillas APRN.CNP Work Phone: [facility]hillBqsosq26-76-1568syyyvybzh virus vaccine, unspecified formulationTrumbull Regional Medical Center10-09-2023influenza, high dose seasonal, preservative-freeBenalberta Hathaway Other noskyrockit Other [id number]-38 Pfizer (Pediatric)Nathan Hathaway Other [facility]11-18-2022Pfizer COVID-19 Vac Bivalent 30 MCG/0.3ML Intramuscular SuspensionNathan Hathaway Work Phone: [facility]10-14-2022influenza virus vaccine, split virus (incl. purified surface antigen)Nathan Hathaway Other noTraveDoc [facility] Other [id number] virus vaccine, unspecified formulationTrumbull Regional Medical Center04-02-2022COVID-19 mRNA, Comirnaty (Pfizer)DO Nathan Hathaway Work Phone: [facility]04-02-2022COVID-19 PfizerBenalberta Hathaway Other [facility]10-02-2021COVID-19 vaccine, age 12+ yr (PFIZER-BIONTECH - PURPLE TOP)Luis Mckenzie MD Work Phone: [facility]-FairhillUyngto71-94-8719tibnxt vaccine, liveBenalberta Hathaway Other [facility]09-21-2021influenza, high-dose, quadrivalent vaccine (FLUZONE HIGH DOSE QUADRIVALENT)Luis Mckenzie MD Work Phone: [facility]-FairhillQnxcko47-70-1483pcqoajrev virus vaccine, split virus (incl. purified surface antigen)Nathan Hathaway Other Ignyta [facility] Other [id number] virus vaccine, unspecified formulationTrumbull Regional Medical Center07-24-2021zoster vaccine recombinant Luis Mckenzie MD Work Phone: [facility]-FairhillIsumfr03-42-0625yhvlcv vaccine, liveBeesa Hathaway Other [facility]02-20-2021COVID-19 vaccine, age 12+ yr (PFIZER-BIONTECH - [facility])Luis Mckenzie MD Work Phone: [facility]-FairhillXxwqax29-19-7857MUQUS-85 Vaccine Moderna - Documentation Purposes OnlyNathan Hathaway Other [facility]01-30-2021COVID-19 vaccine, age 12+ yr (PFIZER-BIONTECH - [facility])Luis Mckenzie MD Work Phone: [facility]-FairhillRyfaco87-07-6581afeninznc virus vaccine, split virus (incl. purified surface antigen)Nathan Hathaway Other [employer] Other [id number] virus vaccine, unspecified formulationTrumbull Regional Medical Center09-11-2019AS03 adjuvantArrival Radiology Work Phone: [facility]-FairhillBwouii08-01-7587Xatcakav trivalent influenza vaccine, adjuvanted, preservative Ras Mckenzie MD Work Phone: [facility]-FairhillSnckex72-87-0766YA28 adjuvantArrival Radiology Work Phone: [facility]-FairhillNbcxec15-35-0622yjqivolwn virus vaccine, split virus (incl. purified surface antigen)Nathan Hathaway Other Ignyta [facility] Other [id number] virus vaccine, unspecified formulationTrumbull Regional Medical Center10-16-2018Seasonal trivalent influenza vaccine, adjuvanted, preservative Ras Mckenzie MD Work Phone: [facility]-FairhillXambte19-85-1297bcyoqavmf virus vaccine, split virus (incl. purified surface antigen)Nathan Hathaway Other [employer] Other 10847836-88-5998pxwqoywnm virus vaccine, unspecified formulationFirelands Regional Medical Hgfrzo04-17-6204gopqosvey, high dose seasonal, preservative-freeLuis Mckenzie MD Work Phone: [facility]-FairhillWmjglj06-92-8686sxeufnwix virus vaccine, split virus (incl. purified surface antigen)Nathan Hathaway Other [employer] Other 09-420330-51-1752sblmammok virus vaccine, unspecified formulationTrumbull Regional Medical Center11-16-2015pneumococcal conjugate vaccine, 13 valentBenjuanmin Fransico Other [facility]10-20-2015influenza virus vaccine, split virus (incl. purified surface antigen)Nathan Hathaway Other [employer] Other 446910-97-3259zszefjypp virus vaccine, unspecified formulationTrumbull Regional Medical Center09-18-2014tetanus and diphtheria toxoids, adsorbed, preservative free, for adult use (5 Lf of tetanus toxoid and 2 Lf of diphtheria toxoid)Nathan Hathaway Other [facility]09-11-2013tetanus and diphtheria toxoids, adsorbed, preservative free, for adult use (5 Lf of tetanus toxoid and 2 Lf of diphtheria toxoid)Nathan Hathaway Other [facility]10-14-2010 pneumococcal polysaccharide vaccine, 23 valentBenjamin Fransico Other [facility] Payers DatePayer CategoryPayerPolicy [id number] supplemental policy (as second payer)[employer] [id number] Private Health InsuranceH[facility] [id number] 2020-Present [phone] [address] [place] [address] Indemnity [id number] Health [id number] 2007MedicareMEDICARE MEDICARE A AND B [id number] 2007-Present [phone] [address] [address] [place] [address] [id number] 2007Medicare [id number] [id number] [id number] 2.16.840.1.954893.3.57[id number] 2.16.840.1.182855.3.57[id number] 2.16.840.1.745569.3.579.[id number] 2.16.840.1.494088.3.579.2.75239-43-2121Tcdnhby5012691 2.16.840.1.639949.3.579.2.2[id number] 2.16.840.1.625121.3.579.[id number] 2.16.840.1.299665.3.579.[id number] 2.16.840.1.002264.3.579.2.85644-58-8045Cixymvi8952965 2..840.1.465861.3.579.2.[id number] 2.840.1.415103.3.579.2.[id number] 2.840.1.955390.3.579.2.838[id number] 2.840.1.268634.3.579.2.[id number] 2.840.1.654828.3.57[id number] 2.840.1.446701.3.57[id number] 2.840.1.569436.3.579.2.[id number] 2.840.1.713[id number] 49md475w-m753-84j3-u801-84575v24l0d3Jrrgrdv358419438-51 Social History DateTypeDetailFacilityStart: 08-01-2021 End: 67-10-8547Xekyzxs smoking status NHISEx-smokerSelect [facility] End: 60-65-6775Eltzpqt of tobacco useCigarette SmokerSt. [facility] [place] Campustart: 08-01-2021 End: 08-61-4007Pukmglv use and exposureSmokeless tobacco non-userSt. [facility]'s [facility], [place] Campustart: 43-33-1515Mri Assigned At BirthNot on fileSt. Mary's [facility], [place] Campustart: 05-12-2022 End: 11-37-5106Kptrcgql to SARS-CoV-2 (event)Not sureSelect Medical Specialty Hospital [facility] End: 12-78-5602Rjwmobw of tobacco useCurrent smokerSt. Mary's [facility], [place] Campustart: 12-04-2022 End: 35-10-0261Obg Assigned At BirthSt. [facility] [place] Campustart: 12-04-2022 End: 27-78-2768Jp illicit drug useNo illicit drug useSelect Medical Specialty Hospital - [facility]-FairhillComment on above:2 coffees in am and 1 coffee at hs;1997;Start: 88-69-2487Gty Assigned At BirthFeWilson Healthtart: 06-04-2023 End: 39-82-4553Uemjnyq intakeEx-drinker (finding)[facility] [place] Campustart: 72-43-4547Ojwil Depression Screening Tkyuknoxtp9Rdwezmmwa ClinicStart: 12-18-2023 End: 06-55-2458Bocfkjk smoking status NHISNever smoked tobacco (finding) [facility]: 03-05-2024 End: 89-07-5558Lmyaxwawr beverage intakeLifetime non-drinker (finding)[facility] Work Phone: Start: 09-11-2024 End: 39-46-0233IpfLziihs (finding)[facility] Medical Equipment Procedure CodeEquipment CodeEquipment Original TextEquipment IdentifierDatesCL STENT WILLIE FRONTIER 2.5 X 18FDAStart: 31-59-1811OV STENT WILLIE FRONTIER 4.0 X 15 FDAStart: 27-82-9089YL STENT WILLIE FRONTIER 4.0 X 18FDAStart: 72-10-1311QF STENT WILLIE FRONTIER 2.5 X 18FDAStart: 84-10-2650KZ STENT WILLIE FRONTIER 4.0 X 15FDA Start: 38-16-8151AV STENT WILLIE FRONTIER 4.0 X 18FDAStart: 13-65-3000FX STENT WILLIE FRONTIER 2.5 X 18FDAStart: 70-74-1441WQ STENT WILLIE FRONTIER 4.0 X 15FDA Start: 77-20-5680GZ STENT WILLIE FRONTIER 4.0 X 18FDAStart: 87-96-1292KB STENT WILLIE FRONTIER 2.5 X 18FDAStart: 40-14-4099FO STENT WILLIE FRONTIER 4.0 X 15FDA Start: 33-73-6405OK STENT WILLIE FRONTIER 4.0 X 18FDAStart: 44-63-6234FQ STENT WILLIE FRONTIER 2.5 X 18FDAStart: 66-09-4941SR STENT WILLIE FRONTIER 4.0 X 15FDA Start: 04-48-7531CG STENT WILLIE FRONTIER 4.0 X 18FDAStart: 02-37-1176IF STENT WILLIE FRONTIER 2.5 X 18FDAStart: 29-69-7965DN STENT WILLIE FRONTIER 4.0 X 15FDA Start: 73-66-6193GE STENT WILLIE FRONTIER 4.0 X 18FDAStart: 96-32-6307GH STENT WILLIE FRONTIER 2.5 X 18FDAStart: 14-48-8425BT STENT WILLIE FRONTIER 4.0 X 15FDA Start: 41-29-2134BL STENT WILLIE FRONTIER 4.0 X 18FDAStart: 30-09-2012HM STENT WILLIE FRONTIER 2.5 X 18FDAStart: 53-41-9810JF STENT WILLIE FRONTIER 4.0 X 15FDA Start: 38-70-6435ZG STENT WILLIE FRONTIER 4.0 X 18FDAStart: 80-20-3612KS STENT WILLIE FRONTIER 2.5 X 18FDAStart: 47-64-8614SF STENT WILLIE FRONTIER 4.0 X 15FDA Start: 26-22-5769AQ STENT WILLIE FRONTIER 4.0 X 18FDAStart: 18-47-3722JR STENT WILLIE FRONTIER 2.5 X 18FDAStart: 49-93-2942CW STENT WILLIE FRONTIER 4.0 X 15FDA Start: 62-00-6588MN STENT WILLIE FRONTIER 4.0 X 18FDAStart: 68-59-5840NQ STENT WILLIE FRONTIER 2.5 X 18FDAStart: 82-39-8859WS STENT WILLIE FRONTIER 4.0 X 15FDA Start: 84-92-4593GB STENT WILLIE FRONTIER 4.0 X 18FDAStart: 27-54-3982DU STENT WILLIE FRONTIER 2.5 X 18FDAStart: 75-59-2412PL STENT WILLIE FRONTIER 4.0 X 15FDA Start: 48-69-9417VP STENT WILLIE FRONTIER 4.0 X 18FDAStart: 29-51-5040UO STENT WILLIE FRONTIER 2.5 X 18FDAStart: 40-95-8632JN STENT WILLIE FRONTIER 4.0 X 15FDA Start: 46-46-1188XX STENT WILLIE FRONTIER 4.0 X 18FDAStart: 07-23-6534XY STENT WILLIE FRONTIER 2.5 X 18FDAStart: 20-72-4782CK STENT WILLIE FRONTIER 4.0 X 15FDA Start: 67-75-0565UW STENT WILLIE FRONTIER 4.0 X 18FDAStart: 91-10-2159BP STENT WILLIE FRONTIER 2.5 X 18FDAStart: 55-82-7511JB STENT WILLIE FRONTIER 4.0 X 15FDA Start: 62-83-3081ZQ STENT WILLIE FRONTIER 4.0 X 18FDAStart: 76-08-1092QO STENT WILLIE FRONTIER 2.5 X 18FDAStart: 99-37-7241ST STENT WILLIE FRONTIER 4.0 X 15FDA Start: 34-40-8194JZ STENT WILLIE FRONTIER 4.0 X 18FDAStart: 46-13-8611ZS STENT WILLIE FRONTIER 2.5 X 18FDAStart: 00-96-6265CH STENT WILLIE FRONTIER 4.0 X 15FDA Start: 57-10-4488SV STENT WILLIE FRONTIER 4.0 X 18FDAStart: 15-08-2957OJ STENT WILLIE FRONTIER 2.5 X 18FDAStart: 84-13-0076LF STENT WILLIE FRONTIER 4.0 X 15FDA Start: 21-17-1220QT STENT WILLIE FRONTIER 4.0 X 18FDAStart: 03-09-2023 Goals DatePatient GoalDesired Activity/State Functional Status HfnzIvbthmwpaaIzrqxnYqfskzow14-06-4615Rgblaeyxmn statusPatient at Baseline [facility] Work Phone: 1(778) 205-408405-494505-84-1809Uradmiveal statusPatient at Baseline [facility] Work Phone: Mental Status MjtmJsjuqpnwurIbkiroBjvatdyr37-48-8865Znywwxwxe functionCognitive Status [facility] Work Phone: 1(941) 343-253705-971117-14-9686Ulgtbviri functionCognitive Status [facility] Work Phone: Clinical Notes 05-29-2022 to 08-19-2025 Note Date & JutkAncrHirmjrqn60-61-8991 Radiology Diagnostic study [facility] [place] [address] Ultrasound Report Signed Patient: Lashaun Joaquin MR#: [id number] : 1940 Acct:[id number] Age/Sex: 84 / F ADM Date: 5 Loc: Room: Type: [facility] Attending Dr: Kaia Krishna OVERNIGHT BABYSITTER-C Ordering Provider: Kaia Krishna APRN Date of [...] -0.39 cm throughout. There was some varicositiesand cardroom attendant sutures also identified which all measure less [...] Menard M.D. 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 08/19/2025 12:27 PM Dictation Location: [place] [address] Tech: Darcy Iyeredgardo Transcribed By: LAURA 08/19/251226 Dictated By: Juan Jose Menard MD 08/19/251225 Signed By: 08/19/251226 [facility] Work Phone: 1(666) 392-624409-12-2025 Telephone encounter Note* Telephone Encounter - Yolanda Cobian RN - 07/10/2025 2:11 PM EDT Refer to providers phone encounter for details of follow up/intervention Yolanda Cobian RN [facility]09-12-2025 Miscellaneous Notes* Telephone Encounter - Yolanda Cobian [...] Her daughter Marianna with today's lab results. [phone] documented in this encounterSelect [facility]09-12-2025 Telephone encounter Note * Telephone Encounter - Yolanda Cobian RN - 07/10/2025 11:[address] Hathaway's office and spoke with Dayana. I informed her of Mrs Joaquin worsening anemia/renal function and elevated blood proteins (refer to note per Kg Petit PA-C from today). She appreciated the update and will discuss with Dr Hathaway. Yolanda Cobian RN [facility]09-12-2025 Miscellaneous Notes* Telephone Encounter - Yolanda Cobian [...] Hathaway's office Please return the call at [phone] KERRY Menendez documented in this encounterSelect [facility]09-12-2025 Telephone encounter Note * Telephone Encounter - Cat Landeros - 07/10/2025 11:[address] Nathan Hathaway's office is calling today regarding Asking the question why labs were repeated on 07/08/2025 when she just had labs drawn on 06/23/2025.Please call Dr Hathaway's office back. Patient has been identified by name and birthdate. Person calling: Dr Nathan Hathaway's office Please return the call at [phone] KERRY Menendez [facility]09-12-2025 Telephone encounter Note* Telephone Encounter - Yolanda Cobian RN - 07/10/2025 9:17 AM EDT Labs still pending. Yolanda Cobian RN [facility]09-10-2025 Telephone encounter Note* Telephone Encounter - Kayla Arriaga - 07/08/2025 11:23 AM EDT Please call Her daughter Marianna with today's lab results. [phone] [facility]09-09-2025 NoteHNO ID: [id number] Author: PAOLO CASILLAS APRN.[facility] Service: ? Author Type: Nurse Practitioner Type: [...] Never Vaping Use Vap (more content not included)...[facility]09-09-2025 History of Present illness Narrative* Paolo Casillas APRN.CREATIVE SERVICES WRITER - 07/07/2025 5:54 PM EDT PATIENT NAME: [...] 06/23/2025. (Scanned) IgM elevated, M-protein 0.2, and [place]/Lambda ration 10.59. Will repeat labs today. Hemoglobin [...] breath and was hospitalized at [facility] treated for suspected pneumonia. Apparently it was later felt she had heart disease, and cardiac catheterization revealed severe coronary artery disease. She subsequently underwent stent placement at [facility]. April 2023 she developed severe shortness of breath and was hospitalized at [facility] 05/17/2023with CHF. She improved with diuresis but has ongoing dyspnea. Continue management per PCP/cardiology. 6. Anemia - ICD9: 285.9, ICD10: D64.9 Labs April 2023 revealed normocytic anemia with a hemoglobin approximately 9. Differential diagnosisincludes iron deficiency, B12 deficiency, folate deficiency, anemia chronic disease , or a bone marrow disorder. Will check additional labs and further evaluate as indicated. Paolo Casillas APRN.CREATIVE SERVICES WRITER CC: Dr. Orlando Cortez spent a total of 40 minutes on the date of the service which included preparing to see the patient, dsdx-zy-gspo patient care, completing clinical documentation, obtaining and/or reviewing separately obtained history, performing a medically appropriate examination, counseling and educating the pat ient/family/caregiver, ordering medications, tests, or procedures, independently interpreting results (not separately reported), and communicating results to the patient/family/caregiver. documented in this encounterSelect [facility]09-08-2025 Telephone encounter Note * Telephone Encounter - Loree Rosado MA - 07/06/2025 9:31 AM EDT Patient coming Sunday07/08/25 for follow up labs. Please add lab orders. Thanks. Loree Rosado MA [facility]08-22-2025 Evaluation note* Diagnosis Onset Date Resolution Status [...] lower extremitiesacuteOctober 2024 10:24amSkin tendernessdeletedOctober 2024 10:24am [facility] Work Phone: 1(476) 956-640808-22-2025 Evaluation note* Diagnosis Onset Date Resolution Status [...] with preserved ejection fraction (HFpEF)noneactiveOctober 2024 11:39am [facility] Work Phone: 1([phone]) 315-607907-22-2025 Evaluation note* Diagnosis Onset Date Resolution Status [...] 9:23amMedicare annual wellness visit, subsequentnoneactiveAugust 2024 9:23am [facility] Work Phone: 1(275) 325-969907-22-2025 Evaluation note* Diagnosis Onset Date Resolution Status [...] with preserved ejection fraction (HFpEF)noneactiveSeptember 2024 3:32pm [facility] Work Phone: 1(775) 130-569907-22-2025 Evaluation note* Diagnosis Onset Date Resolution Status Admit Date Acute bronchitis due to other specified organisms noneactiveJuly 2024 3:17pmAcute exacerbation of chronic obstructive airways diseasenoneactiveJuly 2024 3:17pmAnemiaacuteAugust 2024 9:23amASHD (arteriosclerotic heart disease)acuteAugust 2024 9:23amChronic bronchitisacuteAugust 2024 9:23amChronic kidney diseaseacuteAugust 2024 9:23amChronic venous insufficiencyacuteAugust 2024 9:23amEssential hypertensionacuteAugust 2024 9:23amGAD (generalized anxiety disorder)acute [place] 2024 9:23amGastroesophageal reflux disease with esophagitis without [...] with preserved ejection fraction (HFpEF)noneactiveSeptember 2024 3:32pm [facility] Work Phone: 1(276) 553-630005-16-2025 Evaluation note* Diagnosis Onset Date Resolution Status [...] preserved ejection fraction (HFpEF) noneactiveMay 2024 11:21am [facility] Work Phone: 1(889) 190-186404-15-2025 History of Present illness Narrative* Reyna Esparza MD - 02/25/2025 9:00 AM EDT Subjective Patient ID: Lashaun Joaquin is a 84 y.o. female who presents for Thyroid Nodule (Follow ultrasound [facility] 02/10/25) US shows an 11mm nodule that is unchanged and mult subcentimeter nodules. No family history on file. Active Ambulatory Problems Diagnosis Date Noted Dry eyes 04/28/2024 Epiretinal membrane (ERM) of left eye 04/28/2024 Blepharitis of upper and lower eyelids of both eyes 04/28/2024 Abnormal cardiovascular stress test 11/24/2024 Adrenal nodule ([facility]) 11/24/2024 Anemia 11/24/2024 ASHD (arteriosclerotic heart disease) ([facility]) 10/17/2023 Atrophic vaginitis 11/24/2024 BMI 33.0-33.9,adult 03/05/2024 Cervical spondylosis with radiculopathy 11/24/2024 Chronic bronchitis ([facility]) 11/24/2024 Chronic heart failure with preserved ejection fraction (HFpEF) ([facility]) 11/24/2024 Chronic obstructive pulmonary disease with (acute) exacerbation ([facility]) 11/24/2024 Chronic venous insufficiency 11/24/2024 COVID 10/17/2023 Elevated serum immunoglobulin free light chain level 11/24/2024 Essential hypertension ([facility]) 10/17/2023 Flash pulmonary edema ([facility]) 11/24/2024 Former smoker 10/17/2023 OMAR (generalized anxiety disorder) ([facility]) 11/24/2024 Gastroesophageal reflux disease with esophagitis without hemorrhage 11/24/2024 Heart failure 11/24/2024 Palpitations 01/12/2025 Resolved Ambulatory Problems Diagnosis Date Noted No Resolved Ambulatory Problems Past Medical History: Diagnosis Date Arthritis Cataract Congestive heart failure (CHF) ([facility]) Coronary artery disease ([facility]) GERD (gastroesophageal reflux disease) Hypercholesteremia ([facility]) Hypertension ([facility]) Peripheral neuropathy Past Surgical History: Procedure Laterality [...] then annually if stable documented in this encounterLakeland Regional HospitalTcrbfaznwl58-90-4764 Miscellaneous Notes* Telephone Encounter - Loree Rosado MA - 07/06/2025 9:31 AM EDT Patient coming Sunday07/08/25 for follow up labs. Please add lab orders. Thanks. Loree Rosado MA documented in this encounterSelect Medical [facility]ty [facility]03-27-2025 Evaluation note* Diagnosis Onset Date Resolution Status [...] 11:21amSubclinical hypothyroidismacuteMay 2024 11:21amThyroid noduleacuteMay 2024 11:21am [facility] Work Phone: [phone] 638-186803-17-2025 Evaluation + Plan note* Assessment & Plan Note - CINTIA Gallego - 01/12/2025 3:48 PM EDTAssociated Problem(s): Cardiac and Vasculature January 2024 TTE LVEF greater than 55% Biatrial enlargement mild [facility] Work Phone: 1(757) 108-736803-17-2025 Miscellaneous Notes* Assessment & Plan Note - [...] heart disease) March 09, 2023 Mid/proximal RCA PCI/[place] 4x15mm & 4x18mm Proximal diagonal PCI/[place] 2.5 x 18 mm LAD 10% Circumflex [...] hypertension Optimal in office documented in this [facility] Work Phone: 1(901) 185-148003-17-2025 Evaluation + Plan note* Assessment & Plan Note - CINTIA Gallego - 01/12/2025 3:47 PM EDTAssociated Problem(s): Hyperlipidemia High intensity statin January 2024 HDL 42, cholesterol 158 [facility] Work Phone: [phone] 961-256703-17-2025 Evaluation + Plan note* Assessment & Plan Note - CINTIA Gallego - 01/12/2025 3:47 PM EDTAssociated Problem(s): ASHD (arteriosclerotic heart disease) March 09, 2023 Mid/proximal RCA PCI/[place] 4x15mm & 4x18mm Proximal diagonal PCI/[place] 2.5 x 18 mm LAD 10% Circumflex normal LVEF 65% February 2024 MPI ischemia, EF 88% Current daily activity at 4 METS without concerning symptoms [facility] Work Phone: 1(879) 588-345703-17-2025 Evaluation + Plan note* Assessment & Plan Note - CINTIA Gallego - 01/12/2025 3:46 PM EDTAssociated Problem(s): Palpitations Reports fairly daily episodes of hearing my heart thumping going into my ears No prior documented A-fib or arrhythmia. Was taken off of carvedilol January 2024 hospitalization due to bradycardia [facility] Work Phone: [phone] 401-151203-17-2025 Evaluation + Plan note* Assessment & Plan Note - CINTIA Gallego - 01/12/2025 3:46 PM EDTAssociated Problem(s): Essential hypertension Optimal in office [facility] Work Phone: [phone]) 438-228603-17-2025 History of Present illness Narrative* CINTIA Gallego [...] Echo (RODGERS, diastolic dysfunction) Holden Rosado MSN, DIRECTOR BLOOD BANK-CREATIVE SERVICES WRITER, PMHNP-[facility] [place], [place] Please excuse any errors in grammar or translation related to this dictation. Voice recognition software was utilized to prepare this document. documented in this [facility] Work Phone: 1(902) 422-597403-17-2025 Instructions* Patient Instructions* CINTIA Gallego - 01/12/2025 [...] Echo (RODGERS, diastolic dysfunction) documented in this [facility] Work Phone: 1([phone]) 900-101301-28-2025 History of Present illness Narrative* Reyna Esparza MD - 11/25/2024 2:00 PM EST Subjective Patient ID: Lashaun Joaquin is a 84 y.o. female who presents for Thyroid Nodule Pt reports she had a thyroid US after being found to be mildly hypothyroid. US shows an 11mm mixed thyroid nodule. FNA performed that was [place] 1. No family H/O thyroid CA. No [...] Cervical spondylosis with radiculopathy 11/24/2024 Chronic bronchitis ([facility]) 11/24/2024 Chronic heart failure with preserved ejection fraction (HFpEF) ([facility]) 11/24/2024 Chronic obstructive pulmonary disease with (acute) exacerbation ([facility]) 11/24/2024 Chronic venous insufficiency 11/24/2024 COVID 10/17/2023 Elevated serum immunoglobulin free light chain level 11/24/2024 Essential hypertension ([facility]) 10/17/2023 Flash pulmonary edema ([facility]) 11/24/2024 Former smoker 10/17/2023 OMAR (generalized anxiety disorder) ([facility]) 11/24/2024 Gastroesophageal reflux disease with esophagitis without hemorrhage 11/24/2024 Heart failure ([facility]) 11/24/2024 Resolved Ambulatory Problems Diagnosis Date Noted No Resolved Ambulatory Problems Past Medical History: Diagnosis Date Arthritis Cataract Congestive heart failure (CHF) ([facility]) Coronary artery disease ([facility] GERD (gastroesophageal reflux disease) Hypercholesteremia ([facility]) Hypertension ([facility]) Peripheral neuropathy Past Surgical History: Procedure Laterality [...] starting in late December documented in this encounterLakeland Regional [id number] Chief complaint+Reason for visit Narrative* Chief Complaint [...] 10:20am Thyroid nodule December 16, 2024 10:20am [facility] Work Phone: [phone]) 658-667601-20-2025 Chief complaint+Reason for visit Narrative * Chief Complaint Admit Date e04.1 November 17, 2024 9 :45am Referral Order November 19, 2024 1 2:33pm 3 month f/u-HIGH RISK December 16 10:20am UA, frequency, burning December 29, 2024 1 :19pm injured right knee yesterday January 22, 2025 9:51am Reason for Visit Admit Date Thyroid nodule November 17, 2024 9 :45am ASHD (arteriosclerotic heart disease) [facility] 2024 10:20am Chronic bronchitis December 16, 2024 [...] knee pain January 22, 2025 9:5 1am [facility] Work Phone: [phone] 809-466501-20-2025 Evaluation note* Diagnosis Onset Date Resolution Status Admit Date Thyroid nodule acuteJanuary 2024 9:45amASHD (arteriosclerotic heart disease)acuteFebruary 2024 10:20amChronic bronchitisacuteFebruary 2024 10:20amChronic heart failure with preserved ejection fraction (HFpEF)acuteFebruary 2024 10:20amChronic kidney diseaseacuteFebruary 2024 10:20amChronic venous insufficiencyacuteFebruary 2024 10:20amEssential hypertensionacuteFebruary 2024 10:20amSubclinical hypothyroidismacuteFebruary 2024 10:20am Thyroid noduleacuteFebruary 2024 10:20am [facility] Work Phone: 1(638) 338-272201-20-2025 Evaluation note* Diagnosis Onset Date Resolution Status Admit Date Thyroid nodule acuteJanuary 2024 9:45amASHD (arteriosclerotic heart disease)acuteFebruary 2024 10:20amChronic bronchitisacuteFebruary 2024 10:20amChronic heart failure with preserved ejection fraction (HFpEF)acuteFebruary 2024 10:20amChronic kidney diseaseacuteFebruary 2024 10:20amChronic venous insufficiencyacuteFebruary 2024 10:20amEssential hypertensionacuteFebruary 2024 10:20amSubclinical hypothyroidismacuteFebruary 2024 10:20am Thyroid noduleacuteFebruary 2024 10:20amChronic kidney diseaseacuteMarch 2024 9:51amNocturnal leg crampsacuteMarch 2024 9:51amRight knee pain acuteMarch 2024 9:51am [facility] Work Phone: 1(288) 766-267212-11-2024 History of Present illness Narrative* Edinson Perry, [...] diastolic heart failure. [facility] we were not involved in this. Her [...] exam, discussion and plan. documented in [facility]Bl[facility] Work Phone: 1(661) 512-503912-11-2024 Instructions* Patient Instructions* Racquel Olivera LPN - [...] Provided instructions on exercise. documented in this encounterBluffton Hospital Work Phone: 1(920) 483-755811-14-2024 Evaluation note* Diagnosis Onset Date Resolution Status Admit Date Anemia acuteAugember 2023 10:16amASHD (arteriosclerotic heart disease)acute November 2023 10:16amChronic bronchitisacuteNovember 2023 10:16am Chronic heart failure with preserved ejection fraction (HFpEF)acuteSeptember 11, 2024 10:16amChronic venous insufficiencyacuteNovember 2023 10:16am Essential hypertensionacuteNov2023 10:16amGAD (generalized anxiety disorder)acuteSeptember 11, 2024 10:16amHypercholesterolemiaacuteNovember 2023 10:16amSubclinical hypothyroidismacuteNov2023 10:16am [facility] Work Phone: 1(540) 168-547711-14-2024 Evaluation note* Diagnosis Onset Date Resolution Status Admit Date Anemia acuteNovember 2023 10:16amASHD (arteriosclerotic heart disease)acute November 2023 10:16amChronic bronchitisacuteNovember 2023 10:16am Chronic heart failure with preserved ejection fraction (HFpEF)acuteNov2023 10:16amChronic venous insufficiencyacuteNovember 2023 10:16am Essential hypertensionacuteNovember 2023 10:16amGAD (generalized anxiety disorder)acuteNovember 2023 10:16amHypercholesterolemiaacuteNovember 2023 10:16amSubclinical hypothyroidismacuteNovember 2023 10:16amThyroid noduleacuteJanuary 2024 9:45am [facility] Work Phone: [phone]) 950-433106-25-2024 Evaluation + Plan note* Assessment & Plan Note - CINTIA Gallego - 04/22/2024 11:58 AM EDTAssociated Problem(s): BMI 32.0-32.9,adult Reviewed the merits of healthy lifestyle choices on overall cardiovascular health. [facility] Work Phone: 1(216) 387-354006-25-2024 Evaluation + Plan note* Assessment & Plan Note - CINTIA Gallego - 04/22/2024 11:58 AM EDTAssociated Problem(s): Hyperlipidemia High intensity statin January 2024 HDL 42, cholesterol 158 [facility] Work Phone: [phone] 176-300506-25-2024 Evaluation + Plan note* Assessment & Plan Note - CINTIA Gallego - 04/22/2024 11:58 AM EDTAssociated Problem(s): Essential hypertension Optimal in the office [facility] Work Phone: [phone] 489-736206-25-2024 Evaluation + Plan note* Assessment & Plan Note - CINTIA Gallego - 04/22/2024 11:58 AM EDTAssociated Problem(s): ASHD (arteriosclerotic heart disease) March 09, 2023 Mid/proximal RCA PCI/Willie 4x15mm & 4x18mm Proximal diagonal PCI/Willie 2.5 x 18 mm LAD 10% Circumflex normal LVEF 65% February 2024 MPI ischemia, EF 88% Current daily activity at 4 METS without concerning symptoms [facility] Work Phone: [phone]) [phone] Miscellaneous Notes* Assessment & Plan Note - [...] RCA PCI/Willie 4x15mm & 4x18mm Proximal diagonal PCI/[place] 2.5 x 18 mm LAD 10% Circumflex normal LVEF 65% February 2024 MPI ischemia, EF 88% Current daily activity at 4 METS without concerning symptoms documented in this [facility] Work Phone: 1([phone]) 717-513106-24-2024 History of Present illness Narrative* CINTIA Gallego [...] heart disease) March 09, 2023 Mid/proximal RCA PCI/[place] 4x15mm & 4x18mm Proximal diagonal PCI/[place] 2.5 x 18 mm LAD 10% Circumflex [...] Dr. Perry 6 months Holden Rosado MSN, DIRECTOR BLOOD BANK-CREATIVE SERVICES WRITER, PMHNP-[facility] Please excuse any errors in grammar or translation related to this dictation. Voice recognition software was utilized to prepare this document. [facility] Work Phone: 1(349) 444-998806-24-2024 Instructions* Patient Instructions* CINTIA Gallego - 04/21/2024 [...] Dr. Perry 6 months [facility] Work Phone: [phone]) 702-166305-09-2024 Evaluation + Plan note* Assessment & Plan Note - CINTIA Gallego - 03/06/2024 10:42 AM EDTAssociated Problem(s): BMI 32.0-32.9,adult Reviewed the merits of healthy lifestyle choices on overall cardiovascular health. [facility] Work Phone: [phone]) 991-999305-09-2024 Evaluation + Plan note* Assessment & Plan Note - CINTIA Gallego - 03/06/2024 10:42 AM EDTAssociated Problem(s): Hyperlipidemia High intensity statin January 2024 HDL 42, cholesterol 158 [facility] Work Phone: [phone] 507-674705-09-2024 Miscellaneous Notes* Assessment & Plan Note - [...] RCA PCI/Willie 4x15mm & 4x18mm Proximal diagonal PCI/[place] 2.5 x 18 mm LAD 10% Circumflex normal LVEF 65% [facility] Work Phone: [phone]) 427-839305-09-2024 Evaluation + Plan note* Assessment & Plan Note - CINTIA Gallego - 03/06/2024 10:41 AM EDTAssociated Problem(s): Essential hypertension Optimal in office [facility] Work Phone: [phone]) [phone] Evaluation + Plan note* Assessment & Plan Note - CINTIA Gallego - 03/06/2024 10:41 AM EDTAssociated Problem(s): ASHD (arteriosclerotic heart disease) March 09, 2023 Mid/proximal RCA PCI/Willie 4x15mm & 4x18mm Proximal diagonal PCI/[place] 2.5 x 18 mm LAD 10% Circumflex normal LVEF 65% [facility] Work Phone: [phone] History of Present illness Narrative* CINTIA Gallego - 03/05/2024 11:30 AM EDT Chief Complaint I am just not feeling good Reason for Visit Patient presents to the office today for outpatient follow-up for hospital follow-up. Last evaluated in clinic by Dr. Perry September 2023. January 2024: Hospitalized at [facility] due to accelerated hypertension and bradycardia. [...] contact the office if new symptoms arise. 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 Voice recognition software was utilized to prepare this document. documented in this [facility] Work Phone: [phone]) 727-483605-08-2024 Instructions* Patient Instructions* CINTIA Gallego - 03/05/2024 [...] contact the office if new symptoms arise. OVERNIGHT BABYSITTER after testing documented in this [facility] Work Phone: [phone]) 283-312601-30-2024 Evaluation note* Encounter Date Diagnosis Assessment Notes Treatment Notes Treatment Clinical Notes Oct, Primary insomnia (ICD-10 - F51.0 1) [facility] Other 01-05-2024 Evaluation note* Encounter Date Diagnosis [...] in remission (ICD-10 - F17.211) Continue abstinence [facility] Other 12-05-2023 Evaluation note* Encounter Date Diagnosis [...] and feet daily for blisters and ulcerations. [facility] Other 11-29-2023 Evaluation note* Encounter Date Diagnosis Assessment Notes Treatment Notes Treatment Clinical Notes Aug, Chronic venous insufficiency (IC D-10 - I87.2) [facility] Other 11-24-2023 Evaluation note* Encounter Date Diagnosis Assessment Notes Treatment Notes Treatment Clinical Notes Aug, Subacute cough (ICD-10 - R05.2) Aug,yspnea on exertion (ICD-10 - R06.09) [facility] Other 11-20-2023 Evaluation note* Encounter Date Diagnosis Assessment Notes Treatment Notes Treatment Clinical Notes Aug, Chronic venous insufficiency (IC D-10 - I87.2) [facility] Other 11-16-2023 Evaluation note* Encounter Date Diagnosis Assessment Notes Treatment Notes Treatment Clinical Notes Aug, Chronic venous insufficiency (IC D-10 - I87.2) [facility] Other 11-14-2023 Evaluation note* Encounter Date Diagnosis Assessment Notes Treatment Notes Treatment Clinical Notes Aug, Acute bronchitis due to other sp ecified organisms (ICD-10 - J20.8) Instructed to use Robitussin or Mucinex for cough, saline or Flonase NS for congestion, Tylenol forpain and fever. Aug,hronic obstructive pulmonary disease with (acute) exacerbation (ICD-10 - J44.1)Begin using EDEL as needed to mobilize secretions. [facility] Other 10-19-2023 Evaluation note* Encounter Date Diagnosis Assessment Notes Treatment Notes Treatment Clinical Notes Jul, Aphthous ulcer (ICD-10 - K12.0) [facility] Other 09-20-2023 Evaluation note* Encounter Date Diagnosis Assessment Notes Treatment Notes Treatment Clinical Notes Jun, Dysuria (ICD-10 - R30.0) [facility] Other 09-19-2023 Evaluation note* Encounter Date Diagnosis Assessment Notes Treatment Notes Treatment Clinical Notes Jun, Dysuria (ICD-10 - R30.0) [facility] Other 08-28-2023 Evaluation note* Encounter Date Diagnosis Assessment Notes Treatment Notes Treatment Clinical Notes May, Chronic venous insufficiency (IC D-10 - I87.2) [facility] Other 08-24-2023 Evaluation note* Encounter Date Diagnosis Assessment Notes Treatment Notes Treatment Clinical Notes May, Primary insomnia (ICD-10 - F51.0 1) [facility] Other 08-21-2023 Evaluation note* Encounter Date Diagnosis Assessment Notes Treatment Notes Treatment Clinical Notes May, Diastolic hypertension (ICD-10 - I10) [facility] Other 08-18-2023 Evaluation note* Encounter Date Diagnosis Assessment Notes Treatment Notes Treatment Clinical Notes May, Primary hypertension (ICD-10 - I 10) [facility] Other 08-18-2023 Evaluation note* Encounter Date Diagnosis Assessment Notes Treatment Notes Treatment Clinical Notes May, Diastolic hypertension (ICD-10 - I10) [facility] Other 08-11-2023 Evaluation note* Encounter Date Diagnosis [...] and feet daily for blisters and ulcerations. [facility] Other 08-09-2023 Miscellaneous Notes* Telephone Encounter - [...] further discuss then. documented in this encounterCleveland [id number] History of Present illness Narrative* Luis Mckenzie [...] and was hospitalized at [facility] and treated for suspected pneumonia. Apparently it was later felt she had heart disease, and cardiac catheterization revealed severe coronary artery disease. She dumont bsequently underwent stent placement at [facility]. Apparently her shortness of breath persisted, and [...] breath and was hospitalized at [facility] treated for suspected pneumonia. Apparently it was later felt she had heart disease, and cardiac catheterization revealed severe coronary artery disease. She subsequently underwent stent placement at [facility]. April 2023 she developed severe shortness of breath and was hospitalized at [facility] 05/17/2023with CHF. She improved with diuresis but [...] MD CC: Dr. Perry documented in [facility] Evaluation note* Encounter Date Diagnosis Assessment Notes [...] dependence, cigarettes, in remission (ICD-10 - F17.211) [facility] Other 07-21-2023 Discharge summary Author Lj Ryan [facility] May 18, 2023 11:44amNote Date/TimeJuly 2022 11:44amGrant[place] [address] Discharge Summary Signed Patient: Lashaun Joaquin MR#: [id number] : 1940 Acct:[id number] Age/Sex: 82 / F Adm Date: 3 Loc: Room: [address] [place] [address]: Lj Ryan DO Copies to: [...] Sodium 142, Potassium 4.0, Chloride 103, Carbon Rxwobud60.5, Anion Gap 12.5, BUN 21, Creatinine 1.37 H, Est GFR (CKD-EPI) 39.034, Glucose 94, Calcium 8.9,Phosphorus 5.3, Magnesium 2.1 05/18/23 05:58: Corrected WBC 6.0, Uncorrected WBC Count 6.0, RBC 3.21 L, Hgb 9.7 L, Hct 28.2 L, MCV 87.7, MCH 30.2, MCHC 34.4, RDW 14.1, Plt Count 314, MPV 7.8, Neut % (Auto) 73.6, Lymph % (Auto) 15.1, [place] % (Auto) 8.7, Eos % (Auto) 1.9, Baso % (Auto) 0.7, Nucleat RBC Rel Count 0.1, Neut # (Auto)4.4, Lymph # (Auto) 0.9 L, [place] # (Auto) 0.5, Eos # (Auto) 0.1, [...] signed by Lj Ryan DO> 05/18/23 1144 [facility] Work Phone: [phone]) [phone] History and physical note Author Lj Ryan [facility] May 17, 2023 3:56pmNote Date/TimeJuly 2022 3:49pmGrant[place] [address] Hospitalist H&P Signed Patient: Lashaun Joaquin MR#: [id number] : 1940 Acct:[id number] Age/Sex: 82 / F Adm Date: 3 Loc: 3T Room: [address] [place] [address] Type: ADM INOo Attending Dr: Lj Ryan [...] noted below or in HPI [facility] Medical History (Updated 05/17/23 @ [...] % (Auto) 9.3 % (.) 05/17/23 10:25 Prairie % (Auto) 5.5 % (.) 05/17/23 10:25 Eos % (Auto) 0.5 % (.) 05/17/23 10:25 Baso % (Auto) 0.5 % (.) 05/17/23 10:25 Nucleat RBC Rel Count 0.0 /100 WBC (0-0.5) 05/17/23 10:25 Neut # (Auto) 8.6 x10E3/uL (1.8-7.7) H 05/17/23 10:25 Lymph # (Auto) 1.0 x10E3/uL (1.00-4.8) 05/17/23 10:25 [place]irie # (Auto) 0.6 x10E3/uL (0.0-0.8) 05/17/23 10:25 [...] <Electronically signed by Lj Ryan DO> 05/17/23 [address] [facility] Work Phone: [phone]) [phone] Evaluation note* Encounter Date Diagnosis Assessment Notes [...] index [BMI] 33.0-33.9, adult (ICD-10 - Z68.33) [facility] Other 07-12-2023 Evaluation note* Encounter Date Diagnosis [...] dependence, cigarettes, in remission (ICD-10 - F17.211) [facility] Other 06-29-2023 Evaluation note* Encounter Date Diagnosis Assessment Notes Treatment Notes Treatment Clinical Notes Mar, Paronychia of finger of right gagnon nd (ICD-10 - L03.011) [facility] Other 06-29-2023 Evaluation note* Encounter Date Diagnosis [...] and healthy diet. Mar,aresthesias (ICD-10 - R20.2) [facility] Other 06-21-2023 Evaluation note* Encounter Date Diagnosis [...] post PCI/stent placement. Continue for 12 months [facility] Other 06-21-2023 Evaluation note* Encounter Date Diagnosis Assessment Notes Treatment Notes Treatment Clinical Notes Mar, Chronic bronchitis, simple (ICD- 10 - J41.0) [facility] Other 05-30-2023 Evaluation note* Encounter Date Diagnosis Assessment Notes Treatment Notes Treatment Clinical Notes February, Paresthesias (ICD-10 - R20.2) [facility] Other 05-18-2023 Evaluation note* Encounter Date Diagnosis [...] Titrate Gabapentin and monitor for fluid retention [facility] Other 05-08-2023 Evaluation note* Encounter Date Diagnosis Assessment Notes Treatment Notes Treatment Clinical Notes February, Primary hypertension (ICD-10 - I 10) February,hronic venous insufficiency (ICD-10 - I87.2) [facility] Other 04-19-2023 Evaluation note* Encounter Date Diagnosis [...] pain, change in appetite or bowel habits [facility] Other 04-16-2023 Evaluation note* Encounter Date Diagnosis Assessment Notes Treatment Notes Treatment Clinical Notes Jan, Essential hypertension (ICD-10 - I10) ECHOCARDIOGRAM - 01/2023 1. LVEF is 65%. 2. Normal right ventricular size and systolic function, elevated RVSP 3. Grade 2 diastolic dysfunction. 4. Mild to moderate mitral regurgitation. Jan,ulmonary hypertension (ICD-10 - I27.20) Jan,cute on chronic diastolic heart failure (ICD-10 - I50.33) [facility] Other 04-07-2023 Evaluation note* Encounter Date Diagnosis [...] E78.01)Diet and exercise with continued statin therapy. [facility] Other 02-23-2023 Evaluation note* Encounter Date Diagnosis Assessment Notes Treatment Notes Treatment Clinical Notes Nov, Primary insomnia (ICD-10 - F51.0 1) [facility] Other 02-16-2023 Evaluation note* Encounter Date Diagnosis [...] mammogram for breast cancer (ICD-10 - Z12.31) [facility] Other 02-06-2023 History of Present illness Narrative* [...] in this encounterSelect [facility] [place]-17-[facility] Evaluation note* Encounter Date Diagnosis Assessment Notes [...] or drinking prior to bedtime. Weight loss. [facility] Other 11-01-2022 Miscellaneous Notes* Telephone Encounter - [...] in November MARBIN Freeman documented in this encounterSelect [facility] [place]10-31-2022 History of Present illness Narrative* Nancy Andrade [...] 28, 2022 12:49 PM documented in this encounterSelect [facility] [place]-[facility]08-01-2022 History of Present illness Narrative* Luis Mckenzie [...] associated with accelerated hypertension, was admitted to [facility], diuresed approximately 14 pounds with diuretics. [...] and proceed with heart cath this Sunday [facility] [address] DO Work Phone: Evaluation note* Diagnosis Abnormal SPEP- Primary Other nonspecific findings on examination of blood Neuropathy - (NOS) 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 Lung nodules Other nonspecific abnormal finding of lung field documented in this encounter [facility]* Diagnosis Abnormal SPEP- Primary Other nonspecific findings on examination of blood Neuropathy - (NOS) Lung nodules Other nonspecific abnormal finding of lung field documented in this encounter [facility] noteNo InformationNort [facility] Other Evaluation noteNo assessment information available [facility] Work Phone: Evaluation note* Diagnosis Onset Date Resolution Status Flash pulmonary edema acuteHeart failureacuteHypertensionacuteHypertensive emergencyacuteHypoxiaacute [facility] Work Phone: Evaluation note* Diagnosis Abnormal SPEP- Primary Other nonspecific findings on examination of blood Anemia, unspecified type Neuropathy - (NOS) Heart disease Heart disease, unspecified documented in this encounter [facility]* Diagnosis Onset Date Resolution Status ASHD (arteriosclerotic heart disease) acuteChronic diastolic heart failureacuteChronic venous insufficiencyacute Elevated cholesterolacuteEssential hypertensionacuteGAD (generalized anxiety disorder)acuteGastroesophageal reflux disease with esophagitis without hemorrhageacuteMGUS (monoclonal gammopathy of unknown significance)[facility] Work Phone: Evaluation note* Diagnosis Onset Date Resolution Status ASHD (arteriosclerotic heart disease) acuteChronic diastolic heart failureacuteChronic venous insufficiencyacute Elevated cholesterolacuteEssential hypertensionacuteGAD (generalized anxiety disorder)acuteGastroesophageal reflux disease with esophagitis without hemorrhageacuteMGUS (monoclonal gammopathy of unknown significance)acuteMedicare annual wellness visit, subsequentnoneactiveEustachian tube dysfunctionacute Right otitis mediaacute [facility] Work Phone: Evaluation note* Diagnosis ASHD (arteriosclerotic heart disease)- Primary Coronary atherosclerosis of unspecified type of vessel, upper [place] or graft Essential hypertension Unspecified essential hypertension Mixed hyperlipidemia BMI 32.0-32.9,adult documented in this encounter [facility] Work Phone: Evaluation note* Diagnosis Onset Date Resolution Status ASHD (arteriosclerotic heart disease) acuteChronic diastolic heart failureacuteChronic venous insufficiencyacute Elevated cholesterolacuteEssential hypertensionacuteGAD (generalized anxiety disorder)acuteGastroesophageal reflux disease with esophagitis without hemorrhageacuteMGUS (monoclonal gammopathy of unknown significance)acuteMedicare annual wellness visit, subsequentnoneactiveEustachian tube dysfunctionacute Right otitis mediaacuteASHD (arteriosclerotic heart disease)acuteChronic diastolic heart failureacuteChronic venous insufficiencyacuteEssential hypertensionacuteGAD (generalized anxiety disorder)acuteSubclinical hypothyroidismacute [facility] Work Phone: Evaluation note* Diagnosis ASHD (arteriosclerotic heart disease) Coronary atherosclerosis of unspecified type of vessel, upper [place] or graft documented in this encounter [facility] Work Phone: Evaluation note* Diagnosis Onset Date Resolution Status Anemia acuteASHD (arteriosclerotic heart disease)acuteChronic diastolic heart failure acuteChronic venous insufficiencyacuteEssential hypertensionacuteGAD (generalized anxiety disorder)acuteSubclinical hypothyroidismacute [facility] Work Phone: Evaluation note* Diagnosis 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 Lung nodules Other nonspecific abnormal finding of lung field documented in this encounter [facility]* Diagnosis Onset Date Resolution Status Admit Date Anemia acuteNov2023 10:16amASHD (arteriosclerotic heart disease)acute September 11, 2024 10:16amChronic bronchitisacuteNovember 2023 10:16am Chronic heart failure with preserved ejection fraction (HFpEF)acuteNov2023 10:16amChronic venous insufficiencyacuteNov2023 10:16am Essential hypertensionacuteNovember 2023 10:16amGAD (generalized anxiety disorder)acuteNovember 2023 10:16amHypercholesterolemiaacuteNovember 2023 10:16amSubclinical hypothyroidismacuteNovember 2023 10:16am [facility] Work Phone: Evaluation note* Diagnosis Essential hypertension- Primary Unspecified essential hypertension ASHD (arteriosclerotic heart disease) Coronary atherosclerosis of unspecified type of vessel, upper [place] or graft Mixed hyperlipidemia BMI 32.0-32.9,adult documented in this encounter [facility] Work Phone: Evaluation note* Diagnosis ASHD (arteriosclerotic heart disease)- Primary Coronary atherosclerosis of unspecified type of vessel, upper [place] or graft Essential hypertension Unspecified essential hypertension Mixed hyperlipidemia BMI 32.0-32.9,adult Essential hypertension- Primary Unspecified essential hypertension ASHD (arteriosclerotic heart disease) Coronary atherosclerosis of unspecified type of vessel, upper [place] or graft Mixed hyperlipidemia BMI 32.0-32.9,adult ASHD (arteriosclerotic heart disease) Coronary atherosclerosis of unspecified type of vessel, upper [place] or graft Essential hypertension Unspecified essential hypertension BMI 33.0-33.9,adult Former smoker Personal history of tobacco use, presenting hazards to health S/P PTCA (percutaneous transluminal coronary angioplasty) Postsurgical percutaneous transluminal coronary angioplasty status Mixed hyperlipidemia Coronary arteriosclerosis after percutaneous transluminal coronary angioplasty (PTCA) documented in this encounter [facility] Work Phone: Evaluation note* Diagnosis Thyroid nodule (CMS/HCC)- Primary Nontoxic uninodular goiter [facility] Diagnosis ASHD (arteriosclerotic heart disease)- Primary Coronary atherosclerosis of unspecified type of vessel, upper [place] or graft Essential hypertension Unspecified essential hypertension Mixed hyperlipidemia BMI 32.0-32.9,adult Essential hypertension- Primary Unspecified essential hypertension ASHD (arteriosclerotic heart disease) Coronary atherosclerosis of unspecified type of vessel, upper [place] or graft Mixed hyperlipidemia BMI 32.0-32.9,adult BMI 33.0-33.9,adult- Primary Essential hypertension Unspecified essential hypertension Palpitations ASHD (arteriosclerotic heart disease) Coronary atherosclerosis of unspecified type of vessel, upper [place] or graft Mixed hyperlipidemia documented in this encounter [facility] Work Phone: Evaluation note* Diagnosis Nontoxic multinodular goiter (CMS/HCC)- Primary Nontoxic multinodular goiter [facility] Diagnosis ASHD (arteriosclerotic heart disease)- Primary Coronary atherosclerosis of unspecified type of vessel, upper [place] or graft Essential hypertension Unspecified essential hypertension Mixed hyperlipidemia BMI 32.0-32.9,adult Essential hypertension- Primary Unspecified essential hypertension ASHD (arteriosclerotic heart disease) Coronary atherosclerosis of unspecified type of vessel, upper [place] or graft Mixed hyperlipidemia BMI 32.0-32.9,adult BMI 33.0-33.9,adult- Primary Essential hypertension Unspecified essential hypertension Palpitations ASHD (arteriosclerotic heart disease) Coronary atherosclerosis of unspecified type of vessel, upper [place] or graft Mixed hyperlipidemia Essential hypertension Unspecified essential hypertension Palpitations documented in this encounter [facility] Work Phone: Evaluation note* Diagnosis Abnormal SPEP- Primary Other nonspecific findings on examination of blood documented in this encounter [facility]* Diagnosis Abnormal SPEP- Primary Other nonspecific findings on examination of blood Primary hypertension Unspecified essential hypertension Hyperlipidemia, unspecified hyperlipidemia type Heart disease Heart disease, unspecified Edema, unspecified type 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 Anemia in other chronic diseases classified elsewhere documented in this encounter [facility] general Narrative - Reported* Type Description Date [...] History MalaiseMedical HistoryExogenous obesityMedical HistoryAnemiaSurgical History catarac [id number] Historysee surgical history [facility] Other History general Narrative - Reported* Type [...] History MalaiseMedical HistoryExogenous obesityMedical HistoryAnemiaSurgical History catarac [id number] HistoryPCI/stent RCA and diagonal br02/2023Hospitalization Historysee surgical history [email or web address] [facility] [employer] Other Hospital Discharge instructions Additional Instructions Please [...] to control your blood pressure in the hospital.[facility] Work Phone: Hospital Discharge instructionsAmbulatory Orders* Referral to ENT Time Frame: 11/19/24, Location: None Selected [facility] Work Phone: Reason for referral (narrative)* Consultation (Routine) - AuthorizedSpecialtyDiagnoses / ProceduresReferred By Contact Referred To ContactCardiology Diagnoses ASHD (arteriosclerotic heart disease) Procedures Follow Up In Cardiology Holden Rosado APRN-CNP [address] [facility] [address], [address] [address] Referral IDStatSanjayStart DateExpiration DateVisits RequestedVisits [id number]/8/20245/8/202511 * Cardiac Stress Testing (Routine) - Pending ReviewSpecialtyDiagnoses / ProceduresReferred By ContactReferred To ContactRadiology Diagnoses ASHD (arteriosclerotic heart disease) Procedures Nuclear Stress Test CHG MYOCARDIAL SPECT MULTIPLE STUDIES Holden Rosado APRN-CNP [address] [facility] [address] [place] [address] Referral IDStatusReasonStart DateExpiration DateVisits RequestedVisits [id number] Review [facility] Work Phone: Reason for referral (narrative)* Consultation (Routine) - AuthorizedSpecialtyDiagnoses / ProceduresReferred By Contact Referred To ContactCardiology Diagnoses ASHD (arteriosclerotic heart disease) Procedures Follow Up In Cardiology Holden Rosado APRN-CNP [address] [facility] [address], [address] [address] Referral IDStatusReasonStart DateExpiration DateVisits RequestedVisits [id number]/24/20246/ [facility] Work Phone: Reason for referral (narrative)No reason for referral information availableSelect [facility] Work Phone: Reason for visit Narrative* CV Imaging (Routine) - AuthorizedSpecialtyDiagnoses / ProceduresReferred By ContactReferred To ContactCardiology Diagnoses Essential hypertension Palpitations Procedures Transthoracic Echo Complete PA ECHO TTHRC R-T 2D W/WOM-MODE COMPL SPEC&COLR D Holden Rosado APRN-CNP [address] [facility] [address], [address] [address] Phone: tel: fax: Referral IDStatusReasonStart DateExpiration DateVisits RequestedVisits [id number] Perform Procedure [facility] Work Phone: Advance Directives TypeDate RecordedPatient [...] COMPUTED TOMOGRAPHY THORAX W/CONTRAST Luis Mckenzie MD [address] [place] [address] [address] [place] [address] Ct Imaging Referral IDStatusReasonStart DateExpiration DateVisits RequestedVisits [id number] Auto-Generated Referral [id number] / ProceduresReferred By ContactReferred To ContactCT IMAGING Diagnoses Disorder of adrenal gland (HCC) Procedures CT ABD/PEL W IVCON CT ABD & PELVIS W/CONTRAST Luis Mckenzie MD [address] [place] [address] [place] [address] Ct Imaging Referral IDStatusReasonStart DateExpiration DateVisits RequestedVisits [id number] Auto-Generated Referral [id number] / ProceduresReferred By ContactReferred To ContactRadiology Diagnoses ASHD (arteriosclerotic heart disease) Procedures Nuclear Stress Test CHG MYOCARDIAL SPECT MULTIPLE STUDIES Holden Rosado, DIRECTOR BLOOD BANK-CREATIVE SERVICES WRITER [address] [facility] [address], [address] [address] Referral IDStatusReasonStedmond DateExpiration DateVisits RequestedVisits [id number] [id number] / Procedures Referred By ContactReferred To ContactCT IMAGING Diagnoses Lung nodules Procedures CT CHEST W IVCON DIAGNOSTIC COMPUTED TOMOGRAPHY THORAX W/CONTRAST Luis Mckenzie MD [address] [place] [address] [place] [address] [place] [address] Referral IDStatusReasonStart DateExpiration DateVisits RequestedVisits [id number] Auto-Generated Referral [id number] / ProceduresReferred By ContactReferred To ContactCT IMAGING Diagnoses Disorder of adrenal gland (HCC) Procedures CT ABD/PEL W IVCON CT ABD & PELVIS W/CONTRAST Luis Mckenzie MD [address] [place] [address] [place] [address] [place] [address] Referral IDStatusReasonStart DateExpiration DateVisits RequestedVisits [id number] Auto-Generated Referral Family History Unknown Family Member [...] ear ache Amb Documentation [facility] FOLLOW UP [id number] for VisitASHD (arteriosclerotic heart disease) Chronic diastolic [...] Screening mammogram for breast cancer [facility] 2024 9:23am Subclinical hypothyroidism June 19, [...] 23am ASHD (arteriosclerotic heart disease) [facility] 2024 9:23am Chronic bronchitis June 19, 2025 [...] Screening mammogram for breast cancer [facility] 2024 9:23am Subclinical hypothyroidism June 19, [...] 23am ASHD (arteriosclerotic heart disease) [facility] 2024 9:23am Chronic bronchitis June 19, 2025 [...] Screening mammogram for breast cancer [facility] 2024 9:23am Subclinical hypothyroidism June 19, [...] 17, 2025 9 :42am I87.2 G25.81 R60.0 [id number] I83.893 Octobe r 2024 7:55am Reason for Visit Admit Date Anemia June 19, 2025 9: 23am ASHD (arteriosclerotic heart disease) [facility] 2024 9:23am Chronic bronchitis June [...] 9: 23am Screening mammogram for breast cancer [facility] 2024 9:23am Subclinical hypothyroidism June [...] 17, 2025 9 :42am I87.2 G25.81 R60.0 [id number] I83.893 Octobe r 2024 7:55am [facility] hosp f/u-HIGH RISK August 21 11:39am Reason for Visit Admit Date Anemia June 19, 2025 9: 23am ASHD (arteriosclerotic heart disease) [facility] 2024 9:23am Chronic bronchitis June 19, 2025 [...] Screening mammogram for breast cancer [facility] 2024 9:23am Subclinical hypothyroidism June 19, [...] drug abuse patient.[facility]hillIn the event this information is protected by the Federal Confidentiality of Alcohol and Drug Abuse Patient Records regulations: The Federal rules restrict any use of the information to criminally investigate or prosecute any alcohol or drug abuse patient.[facility]hillIn the event this information is protected by the Federal Confidentiality of Alcohol and Drug Abuse Patient Records regulations: The Federal rules restrict any use of the information to criminally investigate or prosecute any alcohol or drug abuse patient.[facility]hillIn the event this information is protected by the Federal Confidentiality of Alcohol and Drug Abuse Patient Records regulations: The Federal rules restrict any use of the information to criminally investigate or prosecute any alcohol or drug abuse patient.[facility]hillIn the event this information is protected by the Federal Confidentiality of Alcohol and Drug Abuse Patient Records regulations: The Federal rules restrict any use of the information to criminally investigate or prosecute any alcohol or drug abuse patient.[facility]hillIn the event this information is protected by the Federal Confidentiality of Alcohol and Drug Abuse Patient Records regulations: The Federal rules restrict any use of the information to criminally investigate or prosecute any alcohol or drug abuse patient.[facility]hillIn the event this information is protected by the Federal Confidentiality of Alcohol and Drug Abuse Patient Records regulations: The Federal rules restrict any use of the information to criminally investigate or prosecute any alcohol or drug abuse patient.[facility]hillIn the event this information is protected by the Federal Confidentiality of Alcohol and Drug Abuse Patient Records regulations: The Federal rules restrict any use of the information to criminally investigate or prosecute any alcohol or drug abuse patient.[facility]hillIn the event this information is protected by the Federal Confidentiality of Alcohol and Drug Abuse Patient Records regulations: The Federal rules restrict any use of the information to criminally investigate or prosecute any alcohol or drug abuse patient.[facility]hillIn the event this information is protected by the Federal Confidentiality of Alcohol and Drug Abuse Patient Records regulations: The Federal rules restrict any use of the information to criminally investigate or prosecute any alcohol or drug abuse patient.[facility]hillIn the event this information is protected by the Federal Confidentiality of Alcohol and Drug Abuse Patient Records regulations: The Federal rules restrict any use of the information to criminally investigate or prosecute any alcohol or drug abuse patient.[facility] Reason for Visit (unrecogniz ed section and content) ReasonCommentsLab OrdersReasonCommentsabnormal spepReasonCommentsResultsReason CommentsAbnormal SPEPReasonCommentsFollow-upbradycardiaSpecialtyDiagnoses / ProceduresReferred By ContactReferred To ContactRadiology Diagnoses ASHD (arteriosclerotic heart disease) Procedures Nuclear Stress Test CHG MYOCARDIAL SPECT MULTIPLE STUDIES Holden Rosado, DIRECTOR BLOOD BANK-CREATIVE SERVICES WRITER [address] [facility] [address], [facility] [address] [place] [address] Referral IDStatusReasonStart DateExpiration DateVisits RequestedVisits [id number] CT SpecialtyDiagnoses / ProceduresReferred By ContactReferred To ContactCT IMAGING Diagnoses Lung nodules Procedures CT CHEST W IVCON DIAGNOSTIC COMPUTED TOMOGRAPHY THORAX W/CONTRAST Luis Mckenzie MD [address] [place] [address] [place] [address] Ct Imaging [place] [address] Referral IDStatusReasonStart DateExpiration DateVisits RequestedVisits [id number] Auto-Generated Referral /[id number]-jjXaak resultxSpecialtyDiagnoses / ProceduresReferred By ContactReferred To ContactCardiology Diagnoses ASHD (arteriosclerotic heart disease) Procedures Follow Up In Cardiology Edinson Perry, DO [address] [facility] [address], [address] [address] Holden Rosado, DIRECTOR BLOOD BANKCREATIVE SERVICES WRITER [address] [facility] [address], [address] [address] Referral IDStatusReasonStart DateExpiration DateVisits RequestedVisits [id number]/20/202312/131177FxguhnBtpnmwrtIstewh-fr3 month SpecialtyDiagnoses / ProceduresReferred By ContactReferred To ContactCardiology Diagnoses ASHD (arteriosclerotic heart disease) Procedures Follow Up In Cardiology Holden Rosado, DIRECTOR BLOOD BANK-CREATIVE SERVICES WRITER [address] [facility] [address], [address] [address] Phone: tel: fax: Referral IDStatusReasonStart DateExpiration DateVisits RequestedVisits [id number]/24/20246/463978LefnahAgrxu DateCommentsMed [id number] NoduleSpecialtyDiagnoses / Procedures Referred By ContactReferred To ContactOtolaryngology Diagnoses Nontoxic single thyroid nodule (CMS/HCC) Procedures [facility] UNLISTED [employer]ALUATION [employer] MANAGEMENT SERVICE Nathan Hathaway MD [address] [place] [address] Phone: tel: Reyna Esparza MD [address] [facility] [address] [place] [address] Phone: tel: fax: Referral IDStatusReasonStart DateExpiration DateVisits RequestedVisits [id number]/22/20257/979192XoihyfCvqdncadHgcvok-dx7 months Follow up for Coronary Artery DiseaseSpecialtyDiagnoses / ProceduresReferred By ContactReferred To ContactCardiology Diagnoses Essential hypertension Procedures Follow Up In Cardiology Edinson Perry, DO [address] [facility] [address], [address] [place] [address] Phone: tel: fax: Alonzo Holden K, DIRECTOR BLOOD BANK-CREATIVE SERVICES WRITER [address] [place] [address] Phone: tel: fax: Referral IDStatusReasonStart DateExpiration DateVisits RequestedVisits [id number]/11/202412/449941BkrbfeTlkctgxyGxwhsqz Nodule Follow ultrasound [facility] 02/10/25ReasonCommentsLab OrdersntReasonCommentsOrders Patient UpdateReasonCommentsAbnormal SPEPFOLLOW UP Care Teams (unrecognized sec tion and content) Team Status: Active Member Role Status Hortencia Hathaway DO Primary Care Provider Active Team Status: Inactive Member Role Status Hortnecia Hathaway DO Primary Care Provide r, Attending [...] Jonna Perry , DO Attending Provider Active VIANEY Pradoribossmany Care ProviderActive Team Status: Inactive Member Role Status Dates Nathan Hathaway , DO Primary Care Provider Active Isaac Quickralina ProviderActiveLj Ryan , DOAdmit Provider, Attending ProviderActiveTeam MemberRelationshipSpecialtyStart DateEnd Date FransicoNathan, PCP - [facility] [place]01/31/12Team MemberRelationshipSpecialtyStart Date End Date FransicoNathan, [facility] - [facility] [place]01/31/12 Team Status: Active Member Role Status Dates Nathan Hathaway DO Primary Care Provide r, Attending Provider Active Start: February 02, 2024 Team Status: Inactive Member Role Status Dates Nathan Hathaway DO Primary Care Provider Active Start: February 13, 2024 End: February 13, 2024Deja Pope APRN OVERNIGHT BABYSITTER-CAttending ProviderActive Start: February 13, 2024 End: February 13, 2024Team MemberRelationshipSpecialtyStart DateEnd Date FransicoNathan Chinyere, [facility] - [facility] [place]10/03/23 Team Status: Active Member Role Status Dates [...] Date Nathan Hathaway DO PCP - GeneralInternal Kblqwikm19/6/23am MemberRelationshipSpecialtyStart Date End Date Nathan Hathaway DO PCP - GeneralInternal Zpuyfdxj06/6/23Team MemberRelationshipSpecialtyStart Date End Date Nathan Hathaway DO PCP - GeneralInternal Ecjzarcs49/6/23am MemberRelationshipSpecialtyStart Date End Date Nathan Hathaway DO PCP - GeneralInternal Kwnkxpwu72/6/23Team MemberRelationshipSpecialtyStart Date End Date Nathan Hathaway DO PCP - GeneralInternal Medicine01/31/12Team MemberRelationshipSpecialtyStart Date End Date Nathan Hathaway DO PCP - GeneralInternal Pgubcepx04/6/23Team MemberRelationshipSpecialtyStart Date End Date Nathan Hathaway DO PCP - GeneralInternal Idtmktjl79/6/23Team MemberRelationshipSpecialtyStart Date End Date Nathan Hathaway MD [address] [place] [address] PCP - External PCPInternal Medicine06/29/23Team MemberRelationshipSpecialtyStart DateEnd Date Nathan Hathaway MD [address] [facility] [place] [address] PCP - External PCPInternal Medicine06/29/23Team MemberRelationshipSpecialtyStart DateEnd Date Nathan Hathaway MD [address] [facility] [place] [address] PCP - External PCPInternal Medicine06/29/23Team MemberRelationshipSpecialtyStart DateEnd Date Nathan Hathaway DO PCP - GeneralInternal Veqcpmoq31/6/23 Team Status: Inactive Member Role Status Dates Nathan Hathaway DO Primary Care Provide r, Attending Provider Active Start: January 22, 2025 End: January 22, 2025Team MemberRelationshipSpecialtyStart DateEnd Date Nathan Hathaway MD [address] [facility] [place] [address] PCP - GeneralInternal Medicine02/10/25Team MemberRelationshipSpecialtyStart Date End Date Nathan Hathaway DO [address] [facility] [place] [address] PCP - GeneralInternal Medicine02/10/25Team MemberRelationshipSpecialtyStart Date End Date Nathan Hathaway DO [address] [facility] [place] [address] PCP - GeneralInternal Medicine02/10/25Team MemberRelationshipSpecialtyStart Date End Date Nathan Hathaway DO [address] [place] [address] [facility]03/09/25 Team Status: Active Member Role Status Hortencia [...] June 19, 2025Team MemberRelationshipSpecialtyStart DateEnd Date Nathan Hahtaway DO PCP - GeneralInternal Medicine01/31/12Team MemberRelationshipSpecialtyStart Date [...] Start: July 08, 2025 Fanny Bedoya APRN OVERNIGHT BABYSITTER-CAttending ProviderActiveStart: July 08, 2025 Team Status: Active [...] 04, 2025 End: August 04, 2025Kaia Krishna OVERNIGHT BABYSITTER-CAttending ProviderActiveStart: August 04, 2025 End: August 04, [...] Start: July 08, 2025 Fanny Bedoya APRN OVERNIGHT BABYSITTER-CAttending ProviderActiveStart: July 08, 2025 Team Status: Active [...] 2025 End: August 04, 2025Kaia Krishna , OVERNIGHT BABYSITTER-CAttending ProviderActiveStart: August 04, 2025 End: August 04, [...] and content) DATE CREATED AUTHOR 03/08/2023 [facility] DATE CREATED AUTHOR AUTHOR'S ORGANIZ ATION 03/09/2023 [facility] DATE CREATED AUTHOR AUTHOR'S ORGANIZ ATION 03/11/2023 [facility] DATE CREATED AUTHOR AUTHOR'S ORGANIZ ATION 02/26/2025 [facility] DATE CREATED AUTHOR AUTHOR'S ORGANIZ ATION 03/26/2025 [facility] DATE CREATED AUTHOR AUTHOR'S ORGANIZ ATION 03/26/2025 [place] DATE CREATED AUTHOR AUTHOR'S ORGANIZ ATION 07/19/2025 [facility] DATE CREATED AUTHOR AUTHOR'S ORGANIZ ATION 08/21/2025 [facility] Goals (unrecognized section and content) [...] BE BASED ON THE PRIMARY CLINICAL RECORDS. [employer] [facility]. provides no warranty or guarantee of the accuracy or completeness of information in this document.
--- NOTE | 2025-08-25 17:59 | ED.RECABL1 ---
HPI - Recheck/Abnormal Lab/Rx General Chief Complaint: Recheck/Abnormal Lab/Rx Stated Complaint: LOW SODIUM Time Seen by Provider: 08/25/25 17:48 Source: patient Mode of arrival: Wheelchair Limitations: no limitations History of Present Illness HPI narrative: The patient is 84 years old female who was just discharged from the hospital almost a week ago when she was diagnosed with congestive heart failure and diuresed in the hospital The patient was discharged on August 14 The patient apparently presented to her primary care doctor with a generalized weakness and tiredness for the last few days The patient daughter mentioned that sometimes she feels that she is confused although she does not recall any specific occasion Related Data Home Medications ?Medication ?Instructions ?Recorded ?Confirmed alprazolam 0.25 mg tablet 0.25 mg PO BID PRN anxiety 04/11/23 08/14/25 gabapentin 100 mg capsule 100 mg PO Q12H 04/11/23 08/14/25 temazepam 15 mg capsule (Restoril) 15 mg PO .hs PRN sleep 04/11/23 08/14/25 clopidogrel 75 mg tablet 75 mg PO DAILY 07/27/23 08/14/25 rosuvastatin 40 mg tablet 40 mg PO DAILY 02/18/24 08/14/25 pantoprazole 40 mg tablet,delayed 40 mg PO .QD 08/10/25 08/14/25 release umeclidinium 62.5 mcg-vilanterol 1 inh inhalation Q24H 08/10/25 08/14/25 25 mcg/actuation powdr for inhalation (Anoro Ellipta) valsartan 80 mg tablet 80 mg PO .QD 08/10/25 08/14/25 Previous Rx's ?Medication ?Instructions ?Recorded nifedipine 90 mg tablet,extended 90 mg PO DAILY #30 tabs 08/11/25 release 24 hr budesonide-formoterol HFA 160 2 inh inhalation BID #10.2 grams 08/16/25 mcg-4.5 mcg/actuation aerosol inhaler (Symbicort) furosemide 80 mg tablet (Lasix) 80 mg PO BID #30 tabs 08/16/25 metolazone 5 mg tablet 5 mg PO DAILY PRN leg 08/16/25 swelling/weight gain #30 tabs Allergies Allergy/AdvReac Type Severity Reaction Status Date / Time azithromycin Allergy Severe Unknown Verified 08/25/25 17:44 amlodipine Allergy Unknown Verified 08/25/25 17:44 doxycycline Allergy Unknown Verified 08/25/25 17:44 duloxetine (From Cymbalta) Allergy Unknown Verified 08/25/25 17:44 ondansetron (From Zofran) Allergy Unknown Verified 08/25/25 17:44 sulfamethoxazole (From Allergy Unknown Verified 08/25/25 17:44 Bactrim) tetanus and diphtheria Allergy Unknown Verified 08/25/25 17:44 toxoids trimethoprim (From Bactrim) Allergy Unknown Verified 08/25/25 17:44 codeine AdvReac Severe Anxiety Verified 08/25/25 17:44 Review of Systems ROS Status of ROS 10 or more systems reviewed and unremarkable except as noted in history and below PFSH [facility] Medical History Chronic heart failure with preserved ejection fraction (HFpEF) ?I50.32 - Chronic diastolic (congestive) heart failure (ICD-10) Peripheral neuropathy ?G62.9 - Polyneuropathy, unspecified (ICD-10) Peripheral edema ?R60.0 - Localized edema (ICD-10) HTN (hypertension) ?I10 - Essential (primary) hypertension (ICD-10) GERD (gastroesophageal reflux disease) ?K21.9 - Gastro-esophageal reflux disease without esophagitis (ICD-10) Pneumonia due to COVID-19 virus ?U07.1 - COVID-19 (ICD-10) ?J12.82 - Pneumonia due to coronavirus disease 2019 (ICD-10) COVID-19 ?U07.1 - COVID-19 (ICD-10) Obesity ?E66.9 - Obesity, unspecified (ICD-10) Coronary artery disease ?I25.10 - Atherosclerotic heart disease of [place] coronary artery without angina pectoris (ICD-10) Surgical History H/O: hysterectomy ?Z90.710 - Acquired absence of both cervix and uterus (ICD-10) Stented coronary artery ?Z95.5 - Presence of coronary angioplasty implant and graft (ICD-10) Family History Brother Family history of diabetes mellitus Family history of cancer Sister Family history of cancer Social History Within the past year, how often did you have a drink containing alcohol: never Within the past year, how often did you have six or more drinks on one occasion: never Score interpretation: A score less than 3 is consistent with normal alcohol consumption. Smoking status: Former smoker Second hand tobacco smoke exposure: No Non-prescribed substance use: denies use Previous occupational history: [place] [employer] Known occupational exposures/hazards: No Highest level of school completed/degree received: 11th grade Do you want help with school or training: No Are you now , , , , never or living with a partner: In a typical week, how many times do you talk on the telephone with family, friends, or neighbors: 3 or more times per week How often do you get together with friends or relatives: twice per week How often do you attend mandaeism or mandaeism services: 4 or more times per year Do you belong to any clubs or organizations such as mandaeism groups unions, [employer] or athletic groups, or school groups: yes Total score: 4 Score interpretation: A score of greater than or equal to 2 indicates the lowest level of social isolation. Little interest or pleasure in doing things: not at all Feeling down, depressed, or hopeless: not at all Feel stressed/tense/nervous/anxious/difficulty sleeping: only a little Due to disability, difficulty making decisions: No Do you think of yourself as: straight/heterosexual Gender Identity: female Exam Narrative Exam Narrative: Nurses notes and vital signs reviewed and patient is not hypoxic. General: Well-appearing and in no apparent distress. Skin: Warm, dry, no pallor noted. No rash. Head: Normocephalic, atraumatic. Neck: Supple, non-tender. Eye: Pupils are equal, round and EOMI. No scleral icterus. Ears, Nose, Mouth, and Throat: Dry mucous membranes Cardiovascular: Regular Rate and Rhythm without murmur, gallop or rub. Respiratory: No accessory muscle use or respiratory distress. Lungs are clear to auscultation, no wheezing, rales or rhonchi Chest Wall: no tenderness Back: No midline thoracic or lumbar vertebral tenderness. No CVA tenderness Musculoskeletal: normal ROM, no calf or popliteal tenderness, no lower extremity edema/swelling GI: Abdomen is soft, non-distended. Normal bowel sounds. No masses appreciated. No tenderness to palpation. No rebound, guarding, or rigidity noted. Neurological: A&O x4. No cranial nerve dysfunction observed. No truncal ataxia. Moves all extremities. Sensation intact. Psychiatric: Cooperative and interactive. Normal mood and affect. Constitutional Vital Signs, click to edit/add: Last Vital Signs Temp 98.0 F 08/25/25 17:39 Pulse 57 L 08/25/25 18:28 Resp 13 08/25/25 18:28 BP 143/52 H 08/25/25 18:41 Pulse Ox 94 L 08/25/25 18:40 O2 Del Method Room Air 08/25/25 17:39 Course Vital Signs Vital signs: Vital Signs Temperature 98.0 F 08/25/25 17:39 Pulse Rate 58 L 08/25/25 17:39 Respiratory Rate 18 08/25/25 17:39 Blood Pressure 150/50 H 08/25/25 17:39 Pulse Oximetry 96 08/25/25 17:39 Oxygen Delivery Method Room Air 08/25/25 17:39 Temperature 98.0 F 08/25/25 17:39 Pulse Rate 57 L 08/25/25 18:28 Respiratory Rate 13 08/25/25 18:28 Blood Pressure 143/52 H 08/25/25 18:41 Pulse Oximetry 94 L 08/25/25 18:40 Oxygen Delivery Method Room Air 08/25/25 17:39 MDM - Recheck/Abnormal Lab/Rx MDM Narrative Medical decision making narrative: The patient already had a blood workup done as outpatient showing sodium of 122 which is mostly secondary to overdiuresis and the fact that the patient is symptomatic she will need further evaluation and management of the hyponatremia The patient does not have any signs of fluid overload she is mostly hyponatremic because of diuresis The patient have her chemistry repeated at the moment but her EKG showing sinus rhythm with a heart rate of [address] elevation or depression The patient have no hyperkalemic changes on the EKG She had her case discussed with and she will be admitted for hyponatremia management Discharge Plan Discharge Chief Complaint: Recheck/Abnormal Lab/Rx Clinical Impression: Hyponatremia, Hyperkalemia Patient Disposition: Admitted As Inpatient Time of Disposition Decision: 18:42
--- NOTE | 2025-08-25 18:00 | ECG_ITS ---
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 Measurements Intervals [place] Rate: 58 P: 60 ID: [id number] QRS: 47 QRSD: 82 T: 50 QT: 432 QTc: 428 Interpretive Statements 1100 Sinus rhythm 9110 normal ECG Compared to ECG 08/14/2025 07:39:29 No significant changes Electronically Signed On 08-25-2025 19:00:26 EDT by MASSIEL STEPHENSON M.D.
[2025-08-25 18:59] LABS: Anion Gap 13.2; Blood Urea Nitrogen 54.0 mg/dL (7.0-18.0); Calcium 8.8 mg/dL (8.5-10.1); Carbon Dioxide 28.0 mmol/L (21.0-32.0); Chloride 85 mmol/L (98-107); Estimated GFR (African America 36 (>=60 mL/min/1.73m^2); Estimated GFR (Non-African Ame 29 (>=60 mL/min/1.73m^2); Glucose 135 mg/dL (74-106); Potassium 5.2 mmol/L (3.5-5.1)
[2025-08-25 19:01] LABS: Sodium 121 mmol/L (136-145)
--- NOTE | 2025-08-25 19:13 | PC.NURSE ---
19:05 patient report given to YORDAN Gonzalez
--- NOTE | 2025-08-25 19:30 | XR_ITS ---
[address] [address] Patient Name: LASHAUN JOAQUIN MRN: [id number] date: 1940 Sex: F Assigned Patient Location: [place] Current Patient Location: [place] Accession/Order Number: [id number] Exam Date: 08/25/2025 19:58 Report Date: 08/25/2025 20:21 At the request of: JOHNSON FERNANDEZ MD Procedure: XR chest 1V PA CHEST: CLINICAL HISTORY: Follow up CHF COMPARISON: 08/14/2025 Cardiomegaly with mild vascular congestion appears mildly improved. No definite acute airspace opacity. Small left-sided effusion. No pneumothorax or free air. XR/XR chest 1V IMPRESSION: Mild improvement of the CHF findings. Impression dictated by: Liam Hui M.D. 08/25/2025 8:21 PM Dictation Location: [place] [address] Electronically authenticated by: [id number] Y Date: 08/25/2025 20:21
--- OUTSIDE RECORDS SUMMARY | 2025-08-25 19:46 | XMS_ITS | CCD ---
Author Organization [facility] CliniSyri Care Team Providers Care Planner Chief Name Role Phone Nathan Hathaway DO Primary [...] Provider Nathan Hathaway Unavailable [place], Dr. Edinson Hinjoosa Attending Darleneva jen Hathaway, Dr. Nathan Maxwell Primary Care Ericka Perry, Dr. Edinson Hinojosa Attending Aura Perry, Dr. Edinson Hinojosa Referring Aura Hathaway, Dr. Nathan Maxwell Primary Care Unavai lable Ch, DO Fernando Emergency Provider [phone] Connor, DO Lj Wagoner Admit Provider Connor, DO Lj Wagoner Attending Provider [phone] Ball DO, Nathan Whitlock Primary Care Provider Ball DO, Nathan Whitlock Primary Care Provider Ball, DO Evans Primary Care Provider THONY Rosado Attending Provider Ball DO, Nathan Whitlock Primary Care Provider Nathan Hathaway MD Unavailable Ball DO, Nathan Primary Care Provider Fransico DO, Nathan Attending Provider [phone] Ball DO, Nathan Whitlock Primary Care [...] Referring Unavailable Fanny Bedoya APRN Attending Provider [phone] Lucia MANCINI, Valentin Jackson Attending Provider Shelbi CASTRO-CKaia Attending Provider Ball DO, Nathan Primary Care Provider [phone] Ball DO, Nathan Attending Provider [phone] Samantha DOCher Attending Provider [phone] Diamond MANCINI, Agueda Saul Attending Provider Susana Cortes CMA Attending Provider Unavaila ble Seth Dupree DO Attending Provider [phone] Ball, Nathan Primary Care Unavailable Ball, Nathan Attending Unavailable Fransico, Nathan Admitting Unavailable Ball, Nathan Primary Care Unavailable Keister, Jorge L A Admitting Unavailable Keister, Jorge L A Attending Unavailable Fransico, Nathan Primary Care Unavailable Kaia Krishna Admitting Unavailable Kaia Krishna Attending Unavailable Allergies Allergy ClassificationReported Allergen(s)Allergy TypeDate of OnsetReaction(s) Facility (20 sources)amLODIPine; Translations: [AMLODIPINE]Drug Eymlavn66-32-9439Tzpkxxy [facility] (12 sources)Codeine / guaiFENesin; Translations: [CODEINE-GUAIFENESIN]Drug Ywxzxhi22-23-7280SqjcxtbLzozhhgmw Clinic (12 sources)Doxycycline; Translations: [DOXYCYCLINE HYCLATE]Drug Allergy 18-30-7512AzshwfeAmplouzjv Clinic (20 sources)DULoxetine; Translations: [DULOXETINE]Drug Xtzlrpy93-04-9402Wdlcbwr [facility] (20 sources)levoFLOXacin; Translations: [LEVOFLOXACIN]Drug Zueonrn96-70-1530 [facility]Mem[facility] ([facility] sources)Ondansetron; Translations: [ONDANSETRON]Drug Oaypbwo36-65-6997 [facility]:Onset Date: 10/29/2019 (20 sources)Penicillins; Translations: [PENICILLINS]Propensity to adverse reactions to fedv48-85-9955QcgmnrtUbqrwvppu Clinic (20 sources)Sulfamethoxazole / Trimethoprim; Translations: [Bactrim]Drug Allergy 60-90-4202BfkrgmaChildren's Hospital for Rehabilitation (8 sources)Tetracycline (class of antibiotic); Translations: [TETRACYCLINES] Propensity to adverse reactions to dbzw84-00-4787DastjcuZizmqggsv Clinic (12 sources)Iodine And Iodide Containing Products; Translations: [IODINE AND IODIDE CONTAINING PRODUCTS]Drug Tncrduf13-93-0336PzyqyduTriuzkfor Clinic (20 sources)Tetanus And Diphtheria Toxoids; Translations: [TETANUS AND DIPHTHERIA TOXOIDS]Propensity to adverse reactions to snss59-81-9073Jthodxp [facility] (20 sources)AmoxicillinDrug Idnjoxv13-59-0859Lbbasum, Unknown ReactionAdena Regional Medical Center (20 sources)Codeine / guaiFENesinDrug AllergySaint Joseph's Hospital [facility] Other (20 sources)DoxycyclineDrug Dtcjlyc83-76-4677Wjkugbv, Unknown ReactionAdena Regional Medical Center (20 sources)levoFLOXacinDrug AllergyWestborough Behavioral Healthcare HospitalNovariantNorthwell Health [facility] Other (20 sources)Ondansetron; Translations: [Zofran]Drug Zkhzxfj05-12-9857RbujcrvCuiSelect [facility] (20 sources)Tetanus-Diphtheria Toxoids TdDrug allergyWestborough Behavioral Healthcare HospitalNovariantNorthwell Health [facility] Other (20 sources)AllopurinolDrug Thekqrx40-06-8606DifhhusEcmSelect Medical [facility]ty [facility] (1 source)amLODIPineDrug Tbnvbwy62-85-6967JttVan Wert [facility] (1 source)DoxycyclineDrug AllergyVan Wert [facility] Hospital [facility] (1 source)DULoxetineDrug Kytrlpm45-29-4447LkcVan Wert County Hospital [facility] (1 source)Iodine (And Iodine Containting Drugs)Drug allergy (disorder)01-19-2021 [facility] (1 source)Sulfamethoxazole / TrimethoprimDrug Gwgiqiz11-84-4632NyaVan Wert County Hospital Repository (9 sources)Sulfonamides (Antibiotic); Translations: [SULFA (SULFONAMIDE ANTIBIOTICS)]Allergy to iyoljjaeh28-63-9219TtxwSt. [facility] (18 sources)SulfamethoxazoleDrug Smmsekk33-59-1580Fqvpymw [facility] (8 sources)Trimethoprim; Translations: [TRIMETHOPRIM]Drug Carhcpk31-60-7225 [facility] (20 sources)Pseudoephedrine; Translations: [PSEUDOEPHEDRINE]Drug Allergy 08-04-4644ZfsayguRinro [facility] Other (20 sources)TetracyclineDrug AllergySaint Joseph's Hospital [facility] Other (20 sources)Cheratussin AC *COUGH/COLD/ALLERGY*Propensity to adverse reactions 48-87-9261KwfhejvFgplv [facility] Other (20 sources)Zofran *ANTIEMETICS*Propensity to adverse eoxxnvuve54-54-5873Sbzkvin [facility] Other (5 sources)amLODIPineDrug AllergySaint Joseph's Hospital [facility] Other (20 sources)Azithromycin; Translations: [AZITHROMYCIN]Drug Jwefage64-24-3522 rash, SwellingAdena Regional Medical Center (20 sources)CodeineDrug Jdfgwjm80-59-6793Aqyipbg [facility] (17 sources)guaiFENesinDrug Ecfhsmm18-97-0979XjkbcjbPeoples Hospital (17 sources)12 Hour DecongestantAllergy to fcdjxzaod54-19-2275Onpfndv [facility] HospitalComment on above:Onset Date: 10/29/2019 (17 sources)Cheratussin AC *COUGH/COLD/ALLAllergy to odmnjldtt34-02-1380Wzdexqr [facility] CenterComment on above:Free Text Allergy: Cheratussin AC *COUGH/COLD/ALLERGY*; Onset Date: 10/29/2019 (8 sources)PenicillinsDrug Ljxciqwhzqi38-70-3653[facility] (4 sources)PenicillinsPropensity to adverse reactions to qcbg84-24-0252AiwbehuDayton Children'S Hospital (4 sources)TetracyclinesPropensity to adverse reactions to ndzn43-47-8852QpgbfmiDayton Children'S Hospital (1 source)Allopurinol; Translations: [ALLOPURINOL]Drug Kmsejmg24-94-6102 [facility] Repository Medications Current Medications MedicationDrug Class(es)DatesSig (Normalized)Sig (Original)AeroChamber Mini Chamber - (5 sources)Start: 97-06-6701PgzsXkpgpdj Mini Chamber - Use with MDI every 6 hours as needed inhaled every 6 hours as needed for30 days Mar, Active ALPRAZolam 0.25 mg oral tablet (20 sources)BenzodiazepineStart: 93-79-4951xtir 1 tablet by mouth three times daily as needed for anxietyAlprazolam 0.25 mg tablet Active 0.25 MG PO Three times daily as needed for anxiety 270 90 August 21, 2025 12:32pm Chronic kidney disease Chronic kidney disease, stage 3b Complies with drug therapyStart: 09-11-2024 End: 02-94-7925bqxo 1 tablet by mouth twice daily as needed for anxiety Alprazolam 0.25 mg tablet Discontinued 0.25 MG PO Twice daily as needed for anxiety February 12, 2025 12:00am August 21, 2025 12:35pmStart: 01-31-2024 End: 88-41-5565qtyf 1 tablet by mouth every eight hours as needed for anxiety Alprazolam 0.25 mg tablet Discontinued 0.25 MG PO .q8hrs as needed for Anxiety January 31, 2024 10:33am September 11, 2024 3:20pmStart: 94-38-4758fqhz 1 tablet by mouth every eight hours as needed for anxietyALPRAZolam 0.25 MG TAKE 1 TABLET BY MOUTH EVERY 8 HOURS NEEDED FOR ANXIETY for 90 February, Active Start: 03-08-2023 End: 19-71-3847kdcs 1 tablet by mouth three times daily [...] 250 mg oral tablet (10 sources)Macrolide AntimicrobialStart: 03-82-3276Jkgkkmoklifr 250 MG as directed Orally daily for 5 days Aug, ActiveStart: 04-26-2023 Azithromycin 250 MG as directed Orally daily for 5 days Mar, Grasmz856 actuat budesonide 0.16 mg/actuat / formoterol fumarate 0.0045 mg/actuat metered dose inhaler (20 sources)Corticosteroid, beta2-Adrenergic AgonistStart: 06-42-4400hbdu 1 puff(s) by inhalation twice dailyBudesonide-Formoterol (Symbicort) 160-4.5 mcg/actuation HFA aerosol inhaler Active 2 PUFF INHALATION Twice daily August 21, 2025 12:00am Complies with drug therapyStart: 36-77-1880axls 2 puff(s) by inhalation every twelve hoursSymbicort 160-4.5 mcg/actuation inhaler Inhale 2 puffs every 12 hours. 12/31/2024 ActiveStart: 12-29-2024 End: 49-09-6119ixtc 1 puff(s) by inhalation every twelve hoursBudesonide- Formoterol 160-4.5 mcg/actuation HFA aerosol inhaler Discontinued 2 PUFF INHALATION Every 12 hours 30.6 90 0 December 31, 2024 10:25am February 12, 2025 7:76xl333 actuat budesonide 0.16 mg/actuat / formoterol fumarate 0.0048 mg/actuat / glycopyrrolate 0.009 mg/actuat metered dose inhaler (1 source)Corticosteroid, beta2-Adrenergic AgonistStart: 22-32-5379rhof 2 puff(s) by inhalation twice dailyBreztri Aerosphere 160-9-4.8 MCG/ACT 2 puffs Inhalation Twice a day Sample Apr, Activeclopidogrel 75 mg oral tablet (20 sources)P2Y12 Platelet InhibitorStart: 75-62-5457pyla 1 tablet by mouth once dailyClopidogrel 75 mg tablet Active 0 .ROUTE .COMPLEX 90 3 July 07, 2025 7:34am TAKE 1 TABLET BY MOUTH DAILY Complies with drug therapyStart: 05-09-2023 End: 57-40-1766kggx 1 tablet by mouth once dailyClopidogrel 75 mg tablet Discontinued 75 MG PO Daily May 17, 2023 12:00am June 16, 2024 11:42am Start: 05-09-2023 End: 53-73-0845ytmpbacaqid (PLAVIX) 75 mg tablet TAKE 8 TABLETS BY MOUTH ON DAY ONE THEN TAKE 1 TABLET BY MOUTH DAILY 05/09/2023 ActiveComment on above:TAKE 8 TABLETS BY MOUTH ON DAY ONE THEN TAKE 1 TABLET BY MOUTH DAILYcodeine phosphate 2 mg/ml / guaiFENesin 20 mg/ml oral solution (6 sources)Opioid AgonistStart: 14-90-6623uefy 10 mL by mouth four times daily as needed for coughguaiFENesin-Codeine 100-10 MG/5ML 10 mL as needed Orally qid as needed for cough for 7 days Activeenteric contrast (will be provided with radiology test) (1 source)Start: 05-29-2022 End: 37-82-4972xqqdwyb contrast (will be provided with radiology test) [...] enteric contrast guidelinesFluticasone-Salmeterol 115-21 MCG/ACT (16 sources)Start: 94-62-5137ging 2 puff(s) by inhalation twice daily Fluticasone-Salmeterol 115-21 MCG/ACT 2 puffs Inhalation Twice a day Apr, ActiveStart: 74-88-3720sfnw 2 puff(s) by inhalation twice dailyFluticasone- Salmeterol 115-21 MCG/ACT 2 puffs Inhalation Twice a day for 30 days Apr, Activefurosemide 40 mg oral tablet (20 sources)Loop DiureticStart: 15-91-6867uqja 2 tablets by mouth twice daily Start: 08-11-2025 End: 54-60-9823woay 1 tablet by mouth twice dailyFurosemide 40 mg tablet Discontinued 40 MG PO Twice daily 60 0 August 11, 2025 12:00am August 21, 2025 11:51amStart: 10-06-2024 End: 00-24-8509Fcrkooepki 20 mg tablet Discontinued 0 .ROUTE .COMPLEX 180 3 October 06, 2024 1:59pm December 19, 2024 5:28pm TAKE 1 TABLET BY MOUTH 1 TO 2 TIMES DAILY NEEDEDStart: 05-18-2023 End: 26-24-8339uavq 1 tablet by mouth twice dailyFurosemide 20 mg tablet Discontinued 20 MG PO Twice daily 180 3 December 23, 2024 2:16pm February 12, 2025 7:05amStart: 05-18-2023 End: 08-77-2152eddm 1 tablet by mouth three times weeklyFurosemide 20 mg tablet Discontinued 20 MG PO every other day 30 0 May 18, 2023 11:38am 2023 2:00pm on even days 3 times a week. Goal weight is 195lbs, if you notice your weight trending up please take an extra dose as instructed by your PCP Start: 35-71-0734Mfoixxudvf 20 MG Oral Tablet one tablet M, W, F Quantity: 36 Refills: 3 Ordered: 21-Mar-2023 Edinson Perry DO Start : 21-Mar-2023 Active new doseStart: 03-08-2023 End: 56-44-2359Aayymuswlx 20 mg tablet Discontinued 20 MG PO every other day March 08, 2023 12:00am May 18, 2023 11:39am on even days 3 times a weekStart: 03-08-2023 End: 32-58-8877puki 1 tablet by mouth once dailyFurosemide 20 mg tablet Discontinued 20 MG PO Daily February 12, 2025 12:00am June 19, 2025 10:05am Furosemide 20 MG TAKE 1 TABLET BY MOUTH 1 TO 2 TIMES DAILY NEEDED for 90 Activegabapentin 100 mg oral capsule (20 sources)Anti-epileptic AgentStart: 08-15-2024 End: 11-41-8475cwkx 1 capsule by mouth twice dailyGabapentin 100 mg capsule Active 0 .ROUTE .COMPLEX 180 3 July 07, 2025 7:34am TAKE 1 CAPSULE BY MOUTH TWICE DAILY Complies with drug therapyStart: 03-08-2023 End: 43-82-0670bjoz 1 capsule by mouth three times dailyGabapentin [...] with radiology test) (1 source)Start: 05-29-2022 End: 27-98-4981at contrast (will be provided with radiology test) [...] 5 mg oral tablet (1 source)Thiazide-like DiureticStart: 69-45-5136zkjg 1 tablet by mouth once daily as neededMetolazone 5 mg tablet Active 5 MG PO Daily as needed August 21, 2025 12:00am Complies with drugtherapyNIFEdipine 60 mg osmotic 24 hr extended release oral tablet (20 sources)Dihydropyridine Calcium Channel BlockerStart: 08-11-2025 End: 76-81-3677yfpz 1 tablet by mouth once dailyStart: 02-20-2024 End: 69-53-3057bfij 1 tablet by mouth once dailyNifedipine 30 mg tablet extended release 24hr Discontinued 30 MG PO Daily February 26, 2024 12:00am March 19, 2024 2:54pmStart: 45-56-7472ztyu 1 tablet by mouth every twenty-four hours NIFEdipine ER (PROCARDIA XL) 30 mg 24 hr tablet Take 30 mg by mouth. 02/20/2024 Activenitrofurantoin, macrocrystals 25 mg / nitrofurantoin, monohydrate 75 mg oral capsule (11 sources)Nitrofuran AntibacterialStart: 27-41-7702igoh 1 capsule by mouth every twelve hoursNitrofurantoin Monohyd Macro 100 MG 1 capsule with food Orally every 12 hrs for 5 days Jun,ctivepantoprazole 40 mg delayed release oral tablet (20 sources)Proton Pump InhibitorStart: 26-61-3772emse 1 tablet by mouth once daily at breakfastPantoprazole 40 mg tablet,delayed release (DR/EC) Active 0 .ROUTE .COMPLEX 90 November 18, 2024 8:28am TAKE 1 TABLET BY MOUTH DAILY ON AN EMPTY STOMACH FOLLOWED IN 1/2 HOUR BY BREAKFAST Complies with drug therapy Start: 07-05-2021 End: 55-02-5083sjby 1 tablet by mouth once daily in the morningPantoprazole 40 mg tablet,delayed release (DR/EC) Discontinued 40 MG PO Every morning March 08, 2023 12:00am November 18, 2024 8:28amPantoprazole Sodium 40 MG Oral Packet Take 1 tablet by mouth on a empty stomach Quantity: 0 Refills: 0 Ordered: 07-Mar-2023 DO ActivePantoprazole Sodium Not-Takingrosuvastatin calcium 40 mg oral tablet (20 sources)HMG-CoA Reductase InhibitorStart: 59-34-7132qqay 1 tablet by mouth once dailyRosuvastatin 40 mg tablet Active 0 .ROUTE .COMPLEX 90 November 18, 2024 8:24am TAKE 1 TABLET BY MOUTH DAILY Complies with drug therapyStart: 64-33-0683cekn 1 tablet by mouth once dailyRosuvastatin 40 mg tablet Active 0 .ROUTE .COMPLEX 90 November 18, 2024 8:24am TAKE 1 TABLET BY MOUTH DAILYStart: 02-02-2024 End: 27-68-4357xwze 1 tablet by mouth once dailyRosuvastatin 40 mg tablet Discontinued 40 MG PO Daily 30 30 0 February 06, 2024 12:11pm November 18, 2024 8:24amtriamcinolone acetonide 5 mg/ml topical cream (20 sources)CorticosteroidStart: 13-35-8783gufynyrdnfgra (Kenalog) 0.5 % cream 01/31/2024 ActiveStart: 13-03-0325arafwahtdujsg (Kenalog) 0.5 % cream Twice daily 01/31/2024 ActiveStart: 01-31-2024 End: 07-20-9455Dlbzqwrruxteo Acetonide 0.5 % cream Discontinued 1 APPLIC TOPICAL Twice daily January 31, 2024 12:00am February 12, 2025 6:39amStart: 01-31-2024 End: 61-87-9781Evwflnyfliwmg Acetonide 0.1 % paste Discontinued 1 APPLIC DENTAL January 31, 2024 12:00am February 12, 2025 6:39am 1 application do not rinse afterwards and avoid eating or drinking for 30 minutes Mouth/Throat Twice a day Start: 41-84-5629Mbzlogqkklrol Acetonide 0.1 % 1 application do not rinse afterwards and avoid eating or drinking for 30 minutes Mouth/Throat Twice a day for 7 days Jul, ActiveStart: 31-14-4848Udtttfqvzaweh Acetonide 0.5 % 1 application Externally Two times a day for 14 days Mar, ActiveStart: 33-13-6257Orquoedgbtbrt Acetonide 0.5 % 1 application Externally Two times a day for 14 days Mar, ActiveUmeclidinium-Vilanterol (20 sources)Anticholinergic, beta2-Adrenergic AgonistStart: 05-19-2025 Umeclidinium-Vilanterol (Anoro Ellipta) 62.5-25 mcg/actuation blister with device Active 1 INH INHALATION Daily 180 90 3 May 19, 2025 3:59pm Complies with drug therapyStart: 61-11-6739Peykc: 85-87-7952Dkauf: 05-19-2025 Umeclidinium-Vilanterol (Anoro Ellipta) 62.5-25 mcg/actuation blister with device Active 1 INH INHALATION Daily 180 90 May 19, 2025 3:59pm Complies with drug therapyStart: 05-15-2025 End: 55-75-8892Mjbxtsqhziyt-Vilanterol (Anoro Ellipta) 62.5-25 mcg/actuation blister with device Discontinued 1 INH INHALATION Daily 180 90 3 May 15, 2025 11:55am May 19, 2025 4:04pmStart: 05-15-2025 End: 38-69-0547Llndfflhzylb-Vilanterol (Anoro Ellipta) 62.5-25 mcg/actuation blister with device Discontinued 1 INH INHALATION Daily 180 90 May 15, 2025 11:55am May 19, 2025 4:04pmStart: 03-19-2025 End: 82-17-9858Klopwsbdmzmu-Vilanterol (Anoro Ellipta) 62.5-25 mcg/actuation blister with device Discontinued 1 INH INHALATION Daily 180 90 3 March 19, 2025 11:38am May 15, 2025 11:55amStart: 03-19-2025 End: 08-22-2411Vmvykxbciskt-Vilanterol (Anoro Ellipta) 62.5-25 mcg/actuation blister with device Discontinued 1 INH INHALATION Daily 180 90 March 19, 2025 11:38am May 15, 2025 11:55amStart: 03-19-2025 End: 06-58-0257Kztfzcwujibx-Vilanterol (Anoro Ellipta) 62.5-25 mcg/actuation blister with device Discontinued 1 INH INHALATION Daily 60 30 0 March 19, 2025 11:37am March 19, 2025 11:46amStart: 03-13-2025 End: 02-68-8532Ycdjynlqmjty-Vilanterol (Anoro Ellipta) 62.5-25 mcg/actuation blister with device Discontinued 1 INH INHALATION Daily 60 30 5 March 13, 2025 9:43am March 13, 2025 1:43pmStart: 36-41-6381Tkehc Ellipta 62.5-25 MCG/ACT aerosol powder USE 1 INHALATION BY MOUTH DAILY 02/12/2025 ActiveStart: 02-12-2025 End: 40-75-3293Ixgrplvvgtxc-Vilanterol (Anoro Ellipta) 62.5-25 mcg/actuation blister with device Discontinued 1 INH INHALATION Daily 60 30 0 February 12, 2025 12:00am March 13, 2025 1:20pmStart: 02-12-2025 End: 25-11-9581Pynqcsrunrdv-Vilanterol (Anoro Ellipta) 62.5-25 mcg/actuation blister with device Discontinued 1 INH INHALATION Daily 60 30 February 12, 2025 12:00am March 13, 2025 1:20pmUmeclidinium-Vilanterol (Anoro Ellipta) 62.5-25 mcg/actuation blister with device (1 source)Start: 71-26-6350Qvcpvlvpsbyv-Vilanterol (Anoro Ellipta) 62.5-25 mcg/actuation blister with device Active 1 INH INHALATION Daily 180 90 March 19, 2025 11:38amvalsartan 80 mg oral tablet (20 sources)Angiotensin 2 Receptor BlockerStart: 10-08-2024 End: 10-10-2036cwqz 1 tablet by mouth once dailyValsartan 80 mg tablet Active 80 MG PO Daily 90 90 3 June 19, 2025 3:16pm Complies with drug therapy{20 (nirmatrelvir 150 MG Oral Tablet) / 10 (ritonavir 100 MG Oral Tablet) } Pack [Paxlovid 5-Day] (9 sources)Start: 81-75-8704vtmv 3 tablets by mouth every twelve hoursPaxlovid (300/100) 20 x 150 MG & 10 x 100MG 3 tablets Orally Twice a day for 5 days Jun, Active Completed/Discontinued Medications MedicationDrug Class(es)DatesSig (Normalized)Sig (Original)[id number] 200 actuat albuterol 0.09 mg/actuat metered dose inhaler (20 sources)beta2-Adrenergic AgonistStart: 71-24-2271ydjlsbpbx HFA 90 mcg/act inhaler 01/31/2024 ActiveStart: 12-42-7352hijkplzwc HFA 90 mcg/act inhaler Every 6 hours 01/31/2024 ActiveStart: 01-31-2024 End: 87-55-2920egzl 1 puff(s) by inhalation every six hours as needed for wheezingAlbuterol Sulfate 90 mcg/actuation HFA aerosol inhaler Discontinued 2 PUFF INHALATION Every 6 hoursas needed for shortness of breath or wheezing 8.5 5 November 26, 2024 10:19am August 21, 2025 11:51amStart: 89-05-5172jepe 2 puff(s) by inhalation every six hours as needed for coughAlbuterol Sulfate HFA 108 (90 Base) MCG/ACT 2 puff Inhalation every 6 hours as needed for cough, SOB Mar, ActiveStart: 59-67-9890txxb 2 puff(s) by inhalation every six hours as needed for coughAlbuterol Sulfate HFA 108 (90 Base) MCG/ACT 2 puff Inhalation every 6 hours as needed for cough, SOB Mar, ActiveStart: 72-12-1697melt 2 puff(s) by inhalation every six hours as needed for coughAlbuterol Sulfate HFA 108 (90 Base) MCG/ACT 2 puff Inhalation every 6 hours as needed for cough, SOB Mar, ActiveStart: 98-19-0351tvfl 2 puff(s) by inhalation every four hours as needed for coughAlbuterol Sulfate HFA 108 (90 Base) MCG/ACT 2 puffs as needed Inhalation every 4 hrs for As needed for cough or wheeze February, Not-Takingascorbic acid 500 mg oral tablet (19 sources)Vitamin CStart: 03-08-2023 End: 45-94-9164vgsc 1 tablet by mouth once dailyAscorbic Acid (Vitamin C) (Vitamin C) 500 mg Tablet Discontinued 500 MG PO Daily March 08, 2023 12:00am May 17, 2023 10:50amaspirin 81 mg oral tablet (20 sources)Platelet Aggregation Inhibitor, Nonsteroidal Anti-inflammatory Drug Start: 04-18-2023 End: 97-22-8700hvsu 1 capsule by mouth once dailyAspirin 81 mg capsule Discontinued 81 MG PO Daily February 12, 2025 12:00am March 19, 2025 11:46am Start: 03-07-2023 End: 83-77-9898ynwc 1 tablet by mouth once daily in the morningAspirin 81 mg tablet,delayed release (DR/EC) Discontinued 81 MG PO Every morning February 27, 2024 10:00am December 16, 2024 11:47am blood thinner every Mon, Wed, and FriComment on above:Take by mouth.benazepril (20 sources)Angiotensin Converting Enzyme InhibitorBenazepril HCl Not-Taking benzonatate 100 mg oral capsule (20 sources)Non-narcotic AntitussiveStart: 81-15-5287agzk 1 capsule by mouth every eight hoursBenzonatate 100 MG 1 capsule as needed Orally Three times a day for As needed for cough or wheeze February, Not-Takingbumetanide 1 mg oral tablet (13 sources)Loop DiureticStart: 07-06-2025 End: 64-66-8025seix 1 tablet by mouth twice dailyBumetanide 1 mg tablet Discontinued 1 MG PO Twice daily 60 30 2 July 06, 2025 6:16pm July 292024 8:00pmStart: 06-19-2025 End: 08-33-2258fmts 1 tablet by mouth twice dailyBumetanide 0.5 mg tablet Discontinued 0.5 MG PO Twice daily 60 30 0 July 03, 2025 12:14pm July 06, 2025 6:18pmbusPIRone (20 sources)busPIRone HCl Not-TakingCalcium Carbonate (9 sources) End: 78-24-8077wigpqij carbonate (CALCIUM 600 ORAL) Take by mouth. 07/08/2025 Discontinued (Discontinued by another Health Care Provider)calcium carbonate (CALCIUM 600 ORAL) Take by mouth. Activecalcium carbonate (CALCIUM 600 ORAL) Take by mouth. 0 ActiveComment on above:Take by mouth.calcium carbonate 1500 mg / cholecalciferol 0.01 mg oral tablet (19 sources)Vitamin DStart: 03-08-2023 End: 72-16-0390jyvd 1 tablet by mouth once dailyCalcium Carbonate-Vitamin D3 (Calcium 600 + D(3)) 600 mg-10 mcg (400 unit) Tablet Discontinued 1 TAB PO Daily March 08, 2023 12:00am May 17, 2023 10:50amcarvedilol 3.125 mg oral tablet (20 sources)alpha-Adrenergic Humaira, beta-Adrenergic BlockerStart: 04-20-2024 End: 11-70-1284bxfnfobmhl (Coreg) 3.125 MG tablet 04/20/2024 11/25/2024 Discontinued (Therapy completed)Start: 02-11-2024 End: 95-02-0856sdvn 1 tablet by mouth twice daily at mealtimeCarvedilol 3.125 mg tablet Discontinued 0 .ROUTE .COMPLEX 180 3 February 11, 2024 7:04am February 26, 2024 10:53am TAKE 1 TABLET BY MOUTH TWICE DAILY WITH FOODStart: 05-18-2023 End: 21-11-7319Kvcaldcuwk 3.125 mg tablet Discontinued 12.5 MG PO Twice daily 30 May 18, 2023 11:38am May 18, 2023 2:48pm Please do not take if you are feeling lightheaded or have a blood pressure less qxcx446 systolic at homeStart: 05-18-2023 End: 92-38-4664Mzuoousxzo Discontinued 12.5 MG PO Twice daily May 18, 2023 11:38am May 18, 2023 2:48pm Please do not take if you are feeling lightheaded or have a blood pressure less than 120 systolic at homeStart: 05-18-2023 End: 96-05-4676vfzv 1 tablet by mouth twice daily at mealtimeCarvedilol (Coreg) 12.5 mg tablet Discontinued 12.5 MG PO Twice daily 60 0 May 18, 2023 12:00am January 31, 2024 10:34am must administer with a meal/foodStart: 02-14-2023 End: 79-16-3061jiqb 1 tablet by mouth twice dailyCarvedilol 3.125 mg tablet Discontinued 3.125 MG PO Twice daily January 31, 2024 12:00am January 7:04amComment on above:TAKE 1 TABLET BY MOUTH TWICE A DAY WITH FOOD/MEALcefdinir 300 mg oral capsule (20 sources)Cephalosporin AntibacterialStart: 05-19-2025 End: 44-36-0451konv 1 capsule by mouth twice dailyCefdinir 300 mg capsule Discontinued 300 MG PO Twice daily 10 5 0 May 19, 2025 12:00am June 19, 2025 9:32amStart: 02-13-2024 End: 08-13-0979isvo 1 capsule by mouth twice dailyCefdinir 300 mg capsule Discontinued 300 MG PO Twice daily 14 7 0 February 13, 2024 12:00am February 26, 2024 10:49am Right otitis media Dysfunction of eustachian tube Otitis media, unspecified, right ear Unspecified Eustachian tube disorder, unspecified ear Fluticasone Propion-Salmeterol (20 sources)Corticosteroid, beta2-Adrenergic AgonistStart: 11-26-2024 End: 69-68-8951lpje 1 puff(s) by inhalation every twelve hoursFluticasone Propion-Salmeterol (Advair Hfa) 115-21 mcg/actuation HFA aerosol inhaler Discontinued 2PUFF INHALATION Every 12 hours 10 27 11November 26, 2024 10:19am February 12, 2025 6:38am On Hold:NoneStart: 11-26-2024 End: 23-68-3747lnxq 1 puff(s) by inhalation every twelve hoursFluticasone Propion-Salmeterol (Advair Hfa) 115-21 mcg/actuation HFA aerosol inhaler Discontinued 2PUFF INHALATION Every 12 hours 10 27November 26, 2024 10:19am February 12, 2025 6:38am On Hold: NoneStart: 05-34-3989bkff 1 puff(s) by inhalation every twelve hoursFluticasone Propion-Salmeterol (Advair Hfa) 115-21 mcg/actuation HFA aerosol inhaler Active 2 PUFF INHALATION Every 12 hours 10 27November 26, 2024 10:19am On Hold: NoneStart: 69-87-8758nidc 1 puff(s) by inhalation every twelve hoursFluticasone Propion-Salmeterol (Advair Hfa) 115-21 mcg/actuation HFA aerosol inhaler Active 2 PUFF INHALATION Every 12 hours 10 27November 26, 2024 9:19am On Hold: NoneStart: 05-17-2023 End: 03-79-4802gwdw 1 puff(s) by inhalation twice dailyFluticasone Propion- Salmeterol (Advair Hfa) 115-21 mcg/actuation HFA aerosol inhaler Discontinued 2 PUFF INHALATION Twice daily May 17, 2023 12:00am November 26, 2024 10:19am Start: 05-17-2023 End: 91-11-7493azis 1 puff(s) by inhalation twice dailyFluticasone Propion- Salmeterol (Advair Hfa) 115-21 mcg/actuation HFA aerosol inhaler Discontinued 2 PUFF INHALATION Twice daily May 16, 2023 11:00pm November 26, 2024 9:19am Start: 46-60-2355csvn 1 puff(s) by inhalation twice dailyFluticasone Propion- Salmeterol (Advair Hfa) 115-21 mcg/actuation HFA aerosol inhaler Active 2 PUFF I NHALATION Twice daily May 16, 2023 11:00pmStart: 98-27-1955chuv 1 puff(s) by inhalation twice dailyFluticasone Propion-Salmeterol (Advair Hfa) 115-21 mcg/actuation HFA aerosol inhaler Active 2 PUFF INHALATION Twice daily May 17, 2023 12:00amStart: 20-46-9128eozr 2 puff(s) by inhalation twice daily Fluticasone-Salmeterol 115-21 MCG/ACT 2 puffs Inhalation Twice a day Apr, Active End: 34-85-2151ppwv 2 puff(s) by inhalation in the morningfluticasone-salmeterol (Advair) 45-21 MCG/ACT inhaler Inhale 2 puffs in the morning and 2 puffs before bedtime. Rinse mouth with water after use to reduce aftertaste and incidence of candidiasis. Do not swallow. 02/25/2025 Discontinued (Therapy completed) irbesartan 150 mg oral tablet (20 sources)Angiotensin 2 Receptor BlockerStart: 11-28-2022 End: 70-82-6576udiv 1 tablet by mouth once daily in the morningIrbesartan 150 mg tablet Discontinued 150 MG PO Every morning March 08, 2023 12:00am February 27, 2024 10:37amtake 1 tablet by mouth twice dailyIrbesartan 150 MG 1 tablet Orally twice daily Activelevothyroxine sodium 0.075 mg oral tablet (18 sources)l-ThyroxineStart: 02-19-2024 End: 40-01-8055ljfq 1 tablet by mouth once dailyLevothyroxine 75 mcg tablet Discontinued 75 MCG PO Daily February 26, 2024 12:00am September 15, 2024 10:40amlosartan potassium 50 mg oral tablet (20 sources)Angiotensin 2 Receptor BlockerStart: 01-31-2024 End: 39-41-3477qwhu 1 tablet by mouth twice dailyLosartan 50 mg tablet Discontinued 50 MG PO Twice daily January 31, 2024 12:00am February 26, 2024 10: 53amStart: 48-97-9162lqto 1 tablet by mouth twice dailyLosartan Potassium 50 MG 1 tablet Orally twice daily May, Active End: 57-26-2373yjyp 1 tablet by mouth once dailylosartan (COZAAR) 100 mg tablet Take 100 mg by mouth once daily. 07/08/2025 Discontinued (Discontinued by another Health Care Provider)take 1 tablet by mouth once dailyLosartan Potassium 50 MG 1 tablet Orally Once a day for 90 days ActiveComment on above:Take 100 mg by mouth once daily.MULTI-VITAMIN ORAL (9 sources) End: 50-51-0578FUPTM-VITAMIN ORAL Take by mouth. 07/08/2025 Discontinued (Discontinued by another Health Care Provider)MULTI-VITAMIN ORAL Take by mouth. ActiveMULTI-VITAMIN ORAL Take by mouth. 0 ActiveComment on above:Take by mouth. Multivitamin preparation (7 sources)Start: 03-08-2023 End: 93-35-1839cswr 1 tablet by mouth once dailyMultivitamin Discontinued 1 TAB PO Daily March 08, 2023 12:00am May 17, 2023 10:50amStart: 38-56-6040ntim 1 tablet by mouth once dailyMultivitamin Active 1 TAB PO Daily March 08, 2023 12:00amMultivitamin Tablet (12 sources)Start: 03-08-2023 End: 45-39-0396csag 1 tablet by mouth once dailyMultivitamin Tablet Discontinued 1 TAB PO Daily March 08, 2023 12:00am May 17, 2023 10:50amStart: 03-08-2023 End: 10-84-5308xdmj 1 tablet by mouth once dailyMultivitamin Tablet Discontinued 1 TAB PO Daily March 07, 2023 11:00pm May 17, 2023 9:50am24 hr nitroglycerin 0.2 mg/hr transdermal system (20 sources)Nitrate VasodilatorStart: 03-08-2023 End: 76-05-3170ggcil 0.2 mg transdermal route every hourNitroglycerin 0.2 mg/hr patch 24 hour Discontinued 0.2 MG TRANSDERML Daily March 08, 2023 12:00am May 17, 2023 10:50amStart: 03-08-2023 End: 90-72-1213Ossnuagkvjevn Discontinued 0.2 MG TRANSDERML Daily March 08, 2023 12:00am May 17, 2023 10:50amStart: 82-19-9034lepxm 1 dose transdermal route once daily, then apply 1 dose transdermal route every twenty-four hours Nitroglycerin 0.2 MG/HR Transdermal Patch 24 Hour APPLY PATCH FOR 12 TO 14 HOURS DAILY, THEN REMOVEQuantity: 90 Refills: 3 Ordered: 07-Mar-2023 Edinson Perry DO Start : 07-Mar-2023 Active new startnystatin 821080 unt/ml oral suspension (6 sources)Polyene AntifungalStart: 02-16-2025 End: 32-31-4808dsbz 1 mL by mouth four times dailyNystatin 100,000 unit/mL suspension Discontinued 5 ML PO Four times daily 140 7 0 February 16, 2025 1 2:00am March 19, 2025 11:47am swish for 30 seconds and swallowNystatin 100,000 unit/mL suspension (1 source)Start: 02-16-2025 End: 69-83-2860ysai 1 mL by mouth four times dailyNystatin 100,000 unit/mL suspension Discontinued 5 ML PO Four times daily 140 7 February 16, 2025 12:00am March 19, 2025 11:47am swish for 30 seconds and swallowpotassium chloride 10 meq extended release oral tablet (20 sources)Start: 01-24-0272uoku 1 tablet by mouth twice dailypotassium chloride (K-TAB) 10 mEq tablet Take 10 mEq by mouth two times a day. 04/26/2023 ActiveStart: 03-08-2023 End: 65-14-5733Ivqswcweb Chloride 10 mEq tablet extended release Discontinued 10 MEQ PO EVERY 3 WEEKS March 08, 2023 12:00am April 22, 2024 1:22pm 3 times a week on even daysStart: 03-08-2023 End: 71-80-0834jaqg 1 tablet by mouth once dailyPotassium Chloride [...] tablet (20 sources)HMG-CoA Reductase InhibitorStart: 03-08-2023 End: 42-91-3677juth 1 tablet by mouth once daily in the eveningPravastatin 40 mg tablet Discontinued 40 MG PO Every evening March 08, 2023 12:00am February 012:10pmComment on above:Take 40 mg by mouth every evening.predniSONE 20 mg oral tablet (20 sources)Start: 69-03-2556ygdh 1 tablet by mouth every twelve hourspredniSONE 20 MG 1 tablet with food or milk Orally Twice a day for 3 day(s) February, Not-Takingpsyllium 400 mg oral capsule (6 sources)Start: 03-08-2023 End: 90-55-8509Njlyamql Husk (Metamucil) 0.4 gram Capsule Discontinued 0.4 GM PO Daily as needed for Constipation March 08, 2023 12:00am May 17, 2023 10:50am Psyllium Husk (Metamucil) 0.4 gram Capsule (13 sources)Start: 03-08-2023 End: 42-37-4075Mvkuuqmd Husk (Metamucil) 0.4 gram Capsule Discontinued 0.4 GM PO Daily as needed for Constipation March 08, 2023 12:00am May 17, 2023 10:50am Start: 03-08-2023 End: 21-32-8028Ikopcwmu Husk (Metamucil) 0.4 gram Capsule Discontinued 0.4 GM PO Daily as needed for Constipation March 07, 2023 11:00pm May 17, 2023 9:50am Start: 03-08-2023 End: 97-99-7074Uzsgoikv Husk (Metamucil) 0.4 gram Capsule Discontinued 0.4 GM PO Daily March 08, 2023 12:00am 2022 10:50amStart: 28-49-6373Gwqbhkvq Husk (Metamucil) 0.4 gram Capsule Active 0.4 GM PO Daily March 08, 2023 12:00am regadenoson (Lexiscan) injection 0.4 mg (1 source)Start: 03-12-2024 End: .4 mg, intravenous, Once, On Sun03/12/24 at 0915, For 1 dose rOPINIRole 0.25 mg oral tablet (20 sources)Nonergot Dopamine AgonistStart: 11-23-2022 End: 44-95-3462yufj 1 tablet by mouth once dailyRopinirole 0.25 mg tablet Discontinued 0.25 MG PO Daily 90 90 3 December 18, 2023 10:31am February 27, 2024 10:38amsacubitril 24 mg / valsartan 26 mg oral tablet (20 sources)Angiotensin 2 Receptor BlockerStart: 02-20-2024 End: 64-05-0316goww 1 tablet by mouth twice dailySacubitril-Valsartan (Entresto) 24-26 mg tablet Discontinued 1 TAB PO Twice daily February 26, 2024 12:00am March 19, 2024 2:54pmStart: 26-58-7322ykdm 1 tablet by mouth in the morningEntresto 24-26 MG tablet Take 1 tablet by mouth in the morning and 1 tablet in the evening. 02/20/2024 Activesulfamethoxazole 800 mg / trimethoprim 160 mg oral tablet (20 sources)Dihydrofolate Reductase Inhibitor Antibacterial, Sulfonamide AntimicrobialStart: 05-44-0939fwtz 1 tablet by mouth every twelve hoursBactrim [...] mg oral capsule (20 sources)BenzodiazepineStart: 12-21-2022 End: 57-34-5922ozgt 1 capsule by mouth once daily at bedtimeTemazepam 15 mg capsule Discontinued 15 MG PO Daily at bedtime March 08, 2023 12:00am June 13, 2024 2:15pmTemazepam Not-TakingComment on above:Take by mouth at bedtime as needed.ticagrelor 90 mg oral tablet (20 sources)Start: 03-09-2023 End: 68-66-6211jmpk 1 tablet by mouth twice dailyTicagrelor (Brilinta) 90 mg tablet Discontinued 90 MG PO Twice daily 180 3 March 09, 2023 12:00am May 17, 2023 2:07pm Problems Active Problems Problem ClassificationProblemDateDocumented DateEpisodic/ChronicAcute bronchitis (20 sources)Acute bronchitis; Translations: [Acute bronchitis, unspecified] Onset: 64-91-3950YvfopycaRbcyjye disorders (20 sources)Generalized anxiety disorder; Translations: [Generalized anxiety disorder]Onset: 77-82-6970GkznjquXcsbwrz dysrhythmias (20 sources)Palpitations; Translations: [Bradycardia, unspecified]Onset: 58-04-1949UwfgmcbpDxwysjz kidney disease (20 sources)Chronic kidney disease; Translations: [Chronic kidney disease, unspecified]82-41-4482CwcoupmLsbdrhk obstructive pulmonary disease and bronchiectasis (20 sources)Simple chronic bronchitis; Translations: [Simple chronic bronchitis] Onset: 03-85-4565EtyjqahVxedhogxgs heart failure; nonhypertensive (20 sources)Acute on chronic diastolic heart failure; Translations: [Acute on chronic diastolic (congestive) heart failure]Onset: 91-41-3314PkgfpywLtbcjtb on above:- LHC w/ PCI/stent LAD, RCA [...] III; Translations: [Other and unspecified angina pectoris]Onset: 99-57-4997SonjgmtMcqxrrd on above:LHC w/ PCI/stent LAD, RCA (Feb, 2023)Problem List clean-up per request of Phys. EHR CmteDeficiency and other anemia (1 source)Anemia of chronic disease; Translations: [Anemia in other chronic diseases classified elsewhere]52-93-3656VlrxgmhVihffxzsma and other anemia (1 source)Anemia in other chronic diseases classified elsewhere; Translations: [Anemia in other chronic diseases classified elsewhere]Onset: 22-74-3708Fewfvkv Deficiency and other anemia (20 sources)Anemia; Translations: [Anemia, unspecified]Onset: 11-24-2024 10-86-1058TrzmdsfoZfgkoelgzm and other anemia (9 sources)Anemia, unspecified; Translations: [Anemia, unspecified]Onset: 84-88-5851FsubocbcLmivknos of mouth; excluding dental (20 sources)Stomatitis; Translations: [Other forms of stomatitis] Resolved: 44-49-8730MhkpnjhuEvrwhxjra of lipid metabolism (20 sources)Pure hypercholesterolemia; Translations: [Familial hypercholesterolemia]Onset: 19-15-6980GhvmtkiQkavcph on above:Problem List clean-up per request of Phys. EHR CmteE Codes: Adverse effects of medical drugs (20 sources)Adverse reaction to drug; Translations: [Adverse effect of unspecified drugs, medicaments and biological substances, subsequent encounter] EpisodicEsophageal disorders (20 sources)Gastro-esophageal reflux disease with esophagitis; Translations: [Gastroesophageal reflux disease with esophagitis without hemorrhage]Onset: 607473-55-4856HtdyomdIajgghbmj hypertension (20 sources)Essential hypertension; Translations: [Essential (primary) hypertension]Onset: 18-05-9887QkwnsyiUmrdigb on above:Problem List clean-up per request of Phys. EHR CmteGenitourinary symptoms and ill-defined conditions (20 sources)Urinary tract infectious disease; Translations: [Unspecified symptoms and signs involving the genitourinary system]EpisodicHeadache; including migraine (20 sources)Episodic tension-type headache; Translations: [Episodic tension-type headache, not intractable]Onset: 80-94-5669NslqohcWgiunxhxqiar with complications and secondary hypertension (20 sources)Hypertensive heart disease with heart failure; Translations: [Hypertensive emergency]Onset: 059379-64-2356UizfinbXsmdeww on above: Problem List clean-up per request of Phys. EHR CmteImmunizations and screening for infectious disease (20 sources)Other specified abnormal immunological findings in serum; Translations: [Abnormal blood test]Onset: 029780-21-9729Ttfgyenm Lymphadenitis (20 sources)Submandibular lymphadenopathy; Translations: [Localized enlarged lymph nodes]Onset: 08-49-9570BmabfcziLtisxns and fatigue (20 sources)Malaise; Translations: [Other malaise] Resolved: 512554-81-3357DbjooaedHjmmkwwewr disorders (20 sources)Atrophic vaginitis; Translations: [Postmenopausal atrophic vaginitis]Onset: 990594-78-0584ZsujaseTjdgmsllqflcs mental health disorders (20 sources)Primary insomnia; Translations: [Primary insomnia]ChronicNeoplasms of unspecified nature or uncertain behavior (20 sources)Monoclonal paraproteinemia; Translations: [Monoclonal gammopathy] ChronicOsteoarthritis (20 sources)Osteoarthritis; Translations: [Polyosteoarthritis, unspecified] Onset: 14-15-7735BaqglpwOmwcx aftercare (1 source)intermediate (current) use of aspirin; Translations: [[employer] CURRENT USE OF ASPIRIN]Onset: 33-11-8470HkmelhdiMwyep aftercare (1 source)Other fpc (current) drug therapy; Translations: [OTH INTERMEDIATE CURRENT DRUG THERAPY]Onset: 78-07-7895BrwuofgdXtyuu and ill-defined heart disease (2 sources)Heart disease; Translations: [Heart disease, unspecified]06-06-2023 ChronicOther and ill-defined heart disease (1 source)Heart disease, unspecified; Translations: [Heart disease]Onset: 86-92-8286TeqdjaeCzxah and unspecified benign neoplasm (20 sources)Lipoma of [...] lower limb; Translations: [Sleep related leg cramps] 12-65-0118OxlfycxOnvma connective tissue disease (2 sources)Sleep related leg cramps; Translations: [Sleep related leg cramps] 08-01-7642DzjkrtsThrxb connective tissue disease (20 sources)Radial styloid tenosynovitis; Translations: [Radial styloid tenosynovitis [de [place]]]65-40-7836YdwetqmpQndcr connective tissue disease (20 sources)Pain in right lower limb; Translations: [Pain in right leg]Episodic Other connective tissue disease (20 sources)Trochanteric bursitis of right hip; Translations: [Trochanteric bursitis, right hip]EpisodicOther connective tissue disease (1 source)Radial styloid tenosynovitis [de [place]]; Translations: [Radial styloid tenosynovitis [de [place]]]EpisodicOther diseases of veins and lymphatics (20 sources)Peripheral venous insufficiency; Translations: [Venous insufficiency (chronic) (peripheral)]Onset: 447341-37-2008ZdxcgcboDvtic diseases of veins and lymphatics (20 sources)Venous insufficiency (chronic) (peripheral); Translations: [Venous (peripheral) insufficiency, unspecified]Onset: 61-98-4998RbitoqdyLkyes diseases of veins and lymphatics (20 sources)Stasis dermatitis; Translations: [Venous insufficiency (chronic) (peripheral)]EpisodicOther endocrine disorders (20 sources)Disorder of adrenal gland; Translations: [Disorder of adrenal gland, unspecified]ChronicOther endocrine disorders (20 sources)Other specified disorders of adrenal gland; Translations: [Nodule of adrenal cortex (disorder)]ChronicOther endocrine disorders (1 source)Disorder of adrenal gland, unspecifiedChronicOther endocrine disorders (20 sources)Adrenal mass; Translations: [Other specified disorders of adrenal gland]Onset: 616087-10-1928SqspycmVassu eye disorders (20 sources)Ptosis of eyelid; Translations: [Unspecified ptosis of right eyelid] EpisodicOther female genital disorders (20 sources)Noninflammatory disorder of the vagina; Translations: [Other specified noninflammatory disorders ofvagina]EpisodicOther gastrointestinal disorders (20 sources)Irritable bowel syndrome with diarrhea; Translations: [Irritable bowel syndrome with diarrhea]76-97-2349ApcrndtKdllc hematologic conditions (5 sources)Protein electrophoresis abnormal; Translations: [Other specified abnormalities of plasma proteins]EpisodicOther hematologic conditions (2 sources)Other specified abnormalities of plasma proteins; Translations: [OTH SPEC ABNORM PLASMA PROTEINS]Onset: 67-58-3121RzoohheqHgciu hereditary and degenerative nervous system conditions (20 sources)Restless legs; Translations: [Restless legs syndrome]01-31-2024 ChronicOther hereditary and degenerative nervous system conditions (5 sources)Restless legs syndrome; Translations: [Restless legs syndrome]Onset: 12-36-5359XhlhctvCtelo injuries and conditions due to external causes [...] sources)Shortness of breath; Translations: [SHORTNESS OF BREATH]Onset: 45-22-3249QdplhkbrXeufl lower respiratory disease (20 sources)Acute cardiac pulmonary edema ; Translations: [Acute pulmonary edema]Onset: 546468-19-6609DdkmyzzgNiwmvkq on above:Problem List clean-up per request of Phys. EHR CmteOther lower respiratory disease (18 sources)Hypoxia; Translations: [Hypoxemia]45-83-5525LrbddzvdXwlgelf on above:Problem List clean-up per request of Phys. EHR CmteOther lower respiratory disease (1 source)Acute pulmonary edema; Translations: [Acute edema of lung, unspecified]30-68-9093AogknnqvTrpqv lower respiratory disease (1 source)Hypoxemia; Translations: [Hypoxemia]27-41-6404IpfsewvjWrfli nervous system disorders (20 sources)Neuropathy; Translations: [Polyneuropathy, [...] tenderness; Translations: [Other disturbances of skin sensation] 72-34-6796YwysvtpvCbobp non-traumatic joint disorders (20 sources)Arthralgia of the [...] knee; Translations: [Chronic pain of right knee] 10-88-3433PfdotiywNwwbc non-traumatic joint disorders (1 source)Hip pain; Translations: [Pain in right hip]57-56-6820QmmntqcqUeetw nutritional; endocrine; and metabolic disorders (20 sources)Simple obesity ; Translations: [Exogenous obesity]98-74-4670Fkqkjxh Other nutritional; endocrine; and metabolic disorders (20 sources)Obese class I; Translations: [Obesity, unspecified]ChronicOther nutritional; endocrine; and metabolic disorders (2 sources)Obesity, unspecifiedChronicOther nutritional; endocrine; and metabolic disorders (20 sources)Obesity; Translations: [Obesity, unspecified]92-30-7090AnedkymFidzf nutritional; endocrine; and metabolic disorders (20 sources)Obesity caused by energy imbalance; Translations: [Other obesity due to excess calories]ChronicOther nutritional; endocrine; and metabolic disorders (20 sources)Body mass index 30+ - obesity; Translations: [Body mass index (BMI) 32.0-32.9, adult]Onset: 034091-01-6821IebwqcbZqedo nutritional; endocrine; and metabolic disorders (4 sources)Other obesity due to excess caloriesChronicOther nutritional; endocrine; and metabolic disorders (5 sources)Body mass index (BMI) 32.0-32.9, adult; Translations: [Body mass index (BMI) 32.0-32.9, adult]Onset: 73-36-8987HvicgngOlvgo nutritional; endocrine; and metabolic disorders (3 sources)Body mass index (BMI) 33.0-33.9, adult; Translations: [Body mass index (BMI) 33.0-33.9, adult]Onset: 93-54-3428ZglrqauMknko screening for suspected conditions (not mental disorders or infectious disease) (20 sources)Encounter for screening mammogram for malignant neoplasm of breast; Translations: [Cardiovascular stress test abnormal]Onset: 92-65-2893Pcdyrzpn Comment on above:Problem List clean-up per request of Phys. EHR CmteOther skin disorders (1 source)Localized swelling, mass and lump, neckEpisodicOther skin disorders (4 sources)Hemosiderin pigmentation of skin; Translations: [Other specified disorders of pigmentation]41-42-0582UfstgwdlFtjys upper respiratory disease (20 sources)Seasonal allergic rhinitis; Translations: [Other seasonal allergic rhinitis]Onset: 48-90-2770TnyiqufDmbgh upper respiratory disease (20 sources)Allergic rhinitis; Translations: [Allergic rhinitis, unspecified] Onset: 68-16-9445ZtsesnpRbtub upper respiratory disease (20 sources)Vasomotor rhinitis; Translations: [Vasomotor rhinitis]Onset: 69-03-8176RhuuowbZhzdd upper respiratory infections (20 sources)Acute sinusitis; Translations: [Acute sinusitis, unspecified]Onset: 71-81-5293MxkafmskEgglmy media and related conditions (20 sources)Otitis media; Translations: [Otitis media, unspecified, unspecified ear]24-57-6518BsexwpmkSvulkbmcua and visceral atherosclerosis (1 source)Atherosclerosis of [place] arteries of extremities with intermittent claudication, bilateral legs; Translations: [Atherosclerosis of [place] arteries of extremities with intermittent claudication, bilateral legs]Onset: 08-19-2025 ChronicPneumonia (except that caused by tuberculosis or sexually transmitted disease) (1 source)Pneumonia, unspecified organism; Translations: [PNEUMONIA UNSPECIFIED ORGANISM]Onset: 27-07-3355VexvamruLakmgrmlb heart disease (20 sources)Pulmonary hypertension; Translations: [Pulmonary hypertension, unspecified]ChronicResidual codes; unclassified (12 sources)Asymptomatic menopausal state; Translations: [Menopause]Episodic Residual codes; unclassified (20 sources)Menopause present; Translations: [Asymptomatic menopausal state] 99-46-5405NfbihlicOpjfybku codes; unclassified (1 source)Family history of malignant neoplasm of bladder; Translations: [FAM HX MALIGNANT NEOPLASM BLADDER]Onset: 27-41-6599NqyklvapVpkxkkyb codes; unclassified (1 source)Family history of malignant neoplasm of digestive organs; Translations: [FAM HX MALIG NEOPLASM DIGESTIV ORGN]Onset: 35-42-1024Hfunsbvz Residual codes; unclassified (1 source)Family history of other malignant neoplasms of lymphoid, hematopoietic and related tissues; Translations: [FAM HX OTH MAL TANJA LYMPH HEMATPOETC]Onset: 68-25-9342QrgvovyzBlckxuja codes; unclassified (1 source)Family history of malignant neoplasm of trachea, bronchus and lung; Translations: [FAM HX MALIG NEOPLSM TRACH BRON LNG]Onset: 56-87-1315Yuuxidjx Residual codes; unclassified (20 sources)Postmenopausal state; Translations: [Asymptomatic menopausal state] EpisodicResidual codes; unclassified (19 sources)Symptom: generalized; Translations: [Other general symptoms and signs]EpisodicResidual codes; unclassified (1 source)Other general symptoms and signs; Translations: [Other general symptoms and signs]EpisodicResidual codes; unclassified (1 source)Edema; Translations: [Edema, unspecified]55-85-4426NehwisbqGsuewfyy codes; unclassified (4 sources)Bilateral lower limb edema; Translations: [Localized edema]08-04-2025 EpisodicResidual codes; unclassified (1 source)Localized edema; Translations: [Localized edema]Onset: 08-19-2025 EpisodicRespiratory failure; insufficiency; arrest (adult) (2 sources)Requires continuous home oxygen supply; Translations: [Dependence on supplemental oxygen]96-97-1596VdgfgajLwbfkteiplz failure; insufficiency; arrest (adult) (3 sources)Acute respiratory failure with hypoxia; Translations: [Acute hypoxemic respiratory failure]Onset: 729212-58-3818AaqktvxjBhlkyultkaa failure; insufficiency; arrest (adult) (1 source)Respiratory failure; insufficiency; arrest (adult)Retinal detachments; defects; vascular occlusion; and retinopathy (8 sources)Epiretinal membrane of left eye; 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, left eye]Onset: 363483-26-2097GgpzxlaSoqw and subcutaneous tissue infections (2 sources)Cellulitis of right fingerEpisodicSpondylosis; intervertebral disc disorders; other back problems (20 sources)Cervical spondylosis without myelopathy; Translations: [Other spondylosis with radiculopathy, cervical region]Onset: ChronicSprains and strains (20 sources)Neck sprain; Translations: [Strain of muscle, fascia and tendon at neck level, initial encounter]Onset: 04-05-2016 Resolved: 92-25-5468VcqxinrdDfzbcusvu-related disorders (20 sources)Tobacco user; Translations: [Nicotine dependence, cigarettes, in remission]ChronicThyroid disorders (20 sources)Goiter; Translations: [Iodine-deficiency related diffuse (endemic) goiter]52-29-2853MkkaflmIguqkvq on above:US: right 16mm TR4, left 5-7mm TR - 08/2024US: right 16mm TR4, left 5-7mm TR4 - 08/2024FNA: right nodule 11/17/24US: right 16mm TR4, left 5-7mm TR4 - 08/2024,FNA: right nodule - 11/17/24,US: no change - 01/2025Unclassified (3 sources)CONTACT W/AND (SUSP) EXPOS COVID-19; Translations: [CONTACT W/AND (SUSP) EXPOS COVID-19]Onset: 41-94-6027Feiwhlrn veins of lower extremity (5 sources)Varicose veins of lower extremity; Translations: [Varicose veins of bilateral lower extremities with other complications]Onset: 876264-61-9938 EpisodicViral infection (20 sources)COVID-19; Translations: [Disease caused by 2019-nCoV]Onset: 05-08-2022 Past or Other Problems Problem ClassificationProblemDateDocumented DateEpisodic/ChronicCoronary atherosclerosis and other heart disease (4 sources)Patient post percutaneous transluminal coronary angioplasty; Translations: [Percutaneous transluminal coronary angioplasty status]Onset: 331683-23-5780PiipnyjcIxdmtwcffv disorders (20 sources)Esophageal disorders; Translations: [Gastroesophageal reflux disease with esophagitis without hemorrhage]Headache; including migraine (20 sources)Headache; Translations: [Headache, unspecified]Onset: 10-19-2015 EpisodicInflammation; infection of eye (except that caused by tuberculosis or sexually transmitteddisease) (8 sources)Blepharitis of upper and lower eyelids of bilateral eyes; Translations: [Unspecified blepharitis right eye, upper and lower eyelids]Onset: 507830-15-5925HzmoznveDxxxwgv (20 sources)Candidiasis of mouth; Translations: [Candidal stomatitis]Onset: 96-14-8077VonxetvqBcqhvxkxaqqv breast conditions (20 sources)Pain of breast; Translations: [Mastodynia] Resolved: 17-41-3737KcipdlxvHfkhafgsups chest pain (20 sources)Precordial pain; Translations: [Chest pain]Onset: 69-33-4825Jzcedqnx Other connective tissue disease (20 sources)Shoulder lesion, unspecified, left shoulder; Translations: [Shoulder lesion, unspecified, left shoulder]Onset: 66-01-3418UmlveehdExbmf eye disorders (8 sources)Dry eyes; Translations: [Dry eye syndrome of bilateral lacrimal glands]Onset: 871028-02-5488PfqwossgEibou lower respiratory disease (20 sources)Cough; Translations: [Cough, unspecified]Onset: 89-94-3301Wmbbnosm Other lower respiratory disease (10 sources)Dyspnea; Translations: [Shortness of breath]Onset: 10-17-2023 95-88-9274PhoqrnlvZfucy nervous system disorders (19 sources)Tremor; Translations: [Tremor, unspecified]Onset: 81-30-2068Oaubqlwj Other nervous system disorders (19 sources)Atypical facial pain; Translations: [Atypical facial pain]Onset: 43-21-6833TunaarmoExewj nervous system disorders (1 source)Tremor, unspecified; Translations: [Tremor, unspecified]Onset: 58-99-0741TyjytpzeHtrmq nervous system disorders (1 source)Atypical facial pain; Translations: [Atypical facial pain]Onset: 25-29-9193IhpeurerXwhqq non-traumatic joint disorders (19 sources)Shoulder joint pain; Translations: [Pain in left shoulder]Onset: 02-58-3398AiupkgtgXcnpq non-traumatic joint disorders (1 source)Pain in left shoulder; Translations: [Pain in left shoulder]Onset: 83-14-9687ZjkdjiqpLzvcfuqm codes; unclassified (20 sources)Insomnia; Translations: [Insomnia, unspecified]Onset: 06-23-2015 EpisodicScreening and history of mental health and substance abuse codes (20 sources)Ex-smoker; Translations: [Personal history of tobacco use]Onset: 57-48-212621868743-30-9055IcyutswjLjjxjyl on above:1998;Spondylosis; intervertebral disc disorders; other back problems (20 sources)Neck pain; Translations: [Cervicalgia]Onset: 01-79-0704Vsajitgs Superficial injury; contusion (20 sources)Contusion of ankle; Translations: [Contusion of unspecified ankle, initial encounter]Onset: 21-34-8741GamjxzurVctnbfkdoeey (3 sources)Patient status finding; Translations: [Patient new to provider] Unclassified (1 source)CONTACT W/AND (SUSP) EXPOS COVID-19; Translations: [CONTACT W/AND (SUSP) EXPOS COVID-19]Onset: 37-10-6782Tsocwuotvagd (20 sources)Acute candidiasis of vulva and vagina; Translations: [Acute candidiasis of vulva and vagina] Resolved: 90-63-6819Piubhygawpoy (1 source)Subacute cough R05.2Unclassified (1 source)Post COVID-19 condition, 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Unclassified (1 source)Chronic cough R05.3Unclassified (10 sources)Onset: 03-05-2024 Resolved: 668660-50-6402Dfrskne tract infections (20 sources)Urethral syndrome; 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 [place] [address] Ultrasound Report Signed Patient: Lashaun Joaquin MR#: [id number] [birth year] : 1940 Acct:[id number] Age/Sex: 84 / F ADM Date: 08/19/25 Loc: Room: Type: [facility] Attending Dr: Kaia Krishna ENTRY TECH-C Ordering Provider: Kaia Krishna APRN Date of [...] Menard M.D. 08/19/2025 12:27 PM Dictation Location: [place] [address] Tech: Darcy Kraft Transcribed By: LAURA 08/19/25 1227 Dictated By: Juan Jose Menard MD 08/19/256 Signed By: 08/19/[address] [place] [address] Physician GroupUS venous duplex LE [facility] [id number] venous duplex LE [facility] Main [place] [address] [place] [address] Ultrasound Report Signed Patient: Lashaun Joaquin MR#: [id number] [birth year] : 1940 Acct:[id number] Age/Sex: 84 / F ADM Date: 08/19/25 Loc: Room: Type: [facility] Attending Dr: Kaia Krishna ENTRY TECH-C Ordering Provider: Kaia Krishna APRN Date of [...] cm throughout. There was some varicosities and frozen food department manager sutures also identified which all measure [...] Menard M.D. 08/19/2025 12:30 PM Dictation Location: [place] [address] Tech: Darcy Kraft Transcribed By: LAURA 08/19/25 1230 Dictated By: Juan Jose Menard MD 08/19/25 1227 Signed By: 08/19/25 1230[facility] Physician GroupGlomerular filtration rate (GFR) estimation in non- AmericanOrdered By: Agueda Fields on 08-16-2025 GFR/1.73 sq M.predicted among non-blacks MDRD (S/P/Bld) [Vol rate/Area]38 mL/min/{1.73_m2}Low>=60 mL/min/1.73m 2FSelect [facility] Laboratory - Chemistry and Chemistry - challengeOrdered By: Agueda Fields on 39-45-6789Kqinjmh [Mass/Vol]8.3 mg/dLLow8.5-10.1FSelect Medical Specialty Hospital - TrumbullChloride [Moles/Vol]97 mmol/RCyt22-839GoylcamqaAdena Regional Medical CenterCO2 [Moles/Vol]27.1 mmol/L21.0-32.0[facility] CenterCreatinine [Mass/Vol]1.33 mg/dLHigh0.55-1.02[facility] CenterGFR/1.73 sq M.predicted MDRD (S/P/Bld) [Vol rate/Area]46 mL/min/{1.73_m2}Low>=60 mL/min/1.73m 2FSelect Medical Specialty Hospital - TrumbullGlucose [Mass/Vol]93 mg/iU70-139 [facility] CenterPotassium [Moles/Vol]4.2 mmol/L3.5-5.1FOhioHealth Marion General Hospitalodium [Moles/Vol]134 mmol/NZqu118-610UtvngesaaAdena Regional Medical CenterUrea nitrogen [Mass/Vol]30.0 mg/dLHigh7.0-18.0[facility] CenterUrea nitrogen/Creatinine [Mass ratio]22.6 mg/mgOhio Valley Hospitalerum or plasma anion gap determinationOrdered By: Agueda Fields on 18-63-9833Rolez gap [Moles/Vol]14.1 mmol/LFSelect Medical Specialty Hospital - [facility]ull Erythrocyte distribution width Auto (RBC) [Ratio]Ordered By: Agueda Azarr on 20-12-3148Qmhabilfnfc distribution width (RBC) [Ratio]13.6 %11.0-15.0[facility] CenterGlomerular filtration rate (GFR) estimation in non- AmericanOrdered By: Agueda Azarr on 60-88-8915AMK/1.73 sq M.predicted among non-blacks MDRD (S/P/Bld) [Vol rate/Area]35 mL/min/{1.73_m2}Low>=60 mL/min/1.[address]m [address] [place], [place] [address]Hematocrit Auto (Bld) [Volume fraction]Ordered By: Agueda Fields on 78-63-8645Kkwkyexlui (Bld) [Volume fraction]22.7 %Critically low36.0-48.0[facility] CenterComment on above:RESULTS CALLED TO MAI OTERO RNHemoglobin [Mass/volume] in Blood Ordered By: Agueda Fields on 69-59-7034Hjqrlhydix (Bld) [Mass/Vol]7.6 g/dLLow 12.0-16.0[facility] CenterLaboratory - Chemistry and Chemistry - challengeOrdered By: Agueda Fields on 36-99-6678Dcugstg [Mass/Vol]8.4 mg/dL Low8.5-10.1FSelect Medical Specialty Hospital - TrumbullChloride [Moles/Vol]99 mmol/L98-107 [facility] CenterCO2 [Moles/Vol]25.5 mmol/L21.0-32.0[facility] CenterCreatinine [Mass/Vol]1.42 mg/dLHigh0.55-1.02[facility] CenterGFR/1.73 sq M.predicted MDRD (S/P/Bld) [Vol rate/Area]43 mL/min/{1.73_m2}Low>=60 mL/min/1.73m 2FSelect Medical Specialty Hospital - TrumbullGlucose [Mass/Vol]97 mg/aH44-924JnqvagvczAdena Regional Medical CenterPotassium [Moles/Vol] 4.1 mmol/L3.5-5.1FOhioHealth Marion General Hospitalodium [Moles/Vol]136 mmol/L 136-145[facility] CenterUrea nitrogen [Mass/Vol]30.0 mg/dLHigh 7.0-18.0[facility] CenterUrea nitrogen/Creatinine [Mass ratio] 21.1 mg/mgAdena Regional Medical CenterLeukocytes [#/volume] corrected for nucleated erythrocytes in Blood by Automated counOrdered By: Agueda Fields on 95-65-2179XYO corrected for nucl RBC Auto (Bld) [#/Vol]4.8 10 3/uL4.0-11.0 [facility] Auto (RBC) [Entitic mass]Ordered By: Agueda Fields on 45-01-8636ACQ (RBC) [Entitic mass]29.2 pg26.7-34.0[facility] CenterMCHC Auto (RBC) [Mass/Vol]Ordered By: Agueda Fields on 15-36-4895UVPS (RBC) [Mass/Vol]33.5 g/dL29.9-35.2FSelect Medical Specialty Hospital - TrumbullMCV Auto (RBC) [Entitic vol]Ordered By: Oblubadah Daromar on 61-33-5123JKS (RBC) [Entitic vol]87.3 fL81.0-99.0[facility] CenterPlatelet mean volume Auto (Bld) [Entitic vol]Ordered By: Oblubadah Daromar on 08-15-2025 Platelet mean volume (Bld) [Entitic vol]10.1 fL9.5-13.5FSelect Medical Specialty Hospital - TrumbullPlatelets Auto (Bld) [#/Vol]Ordered By: Oblubadah Daromar on 16-89-5075Ylcqjnhvf (Bld) [#/Vol]256 10 3/gY620-304ZkuklwzbiAdena Regional Medical CenterRBC Auto (Bld) [#/Vol]Ordered By: Obaydah Daromar on 11-72-0310PWL (Bld) [#/Vol]2.60 10 6/uLLow4.20-5.40Ohio Valley Hospitalerum or plasma anion gap determinationOrdered By: Oblubadah Daromar on 86-65-8189Nykyf gap [Moles/Vol]15.6 mmol/LFSelect Medical Specialty Hospital - TrumbullBasophils Auto (Bld) [#/Vol]Ordered By: Seth Dupree on 24-38-3995Eaeikoakh (Bld) [#/Vol]0.0 10 3/uL 0.0-0.1FSelect Medical Specialty Hospital - TrumbullBasophils/100 WBC Auto (Bld)Ordered By: Seth Dupree on 99-56-3244Btdgvlbuo/100 WBC (Bld)0.4 %0.2-2.0[facility] CenterEosinophils/100 WBC Auto (Bld)Ordered By: Seth Dupree on 53-96-6746Movabjjtfih/100 WBC (Bld)2.5 %0.9-7.0[facility] Erythrocyte distribution width Auto (RBC) [Ratio]Ordered By: Seth Dupree on 70-80-1146Nzqzpnbuukr distribution width (RBC) [Ratio]13.5 %11.0-15.0[facility] CenterGlomerular filtration rate (GFR) estimation in non- AmericanOrdered By: Seth Dupree on 52-08-7051FOC/1.73 sq M.predicted among non-blacks MDRD (S/P/Bld) [Vol rate/Area]33 mL/min/{1.73_m2}Low>=60 mL/min/1.73m 2FSelect Medical Specialty Hospital - TrumbullHematocrit Auto (Bld) [Volume fraction]Ordered By: Seth Dupree on 86-15-9129Oxroipowfn (Bld) [Volume fraction]24.9 %Low36.0-48.0[facility] CenterHemoglobin [Mass/volume] in BloodOrdered By: Seth Dupree on 37-02-6746Qfyzcmintg (Bld) [Mass/Vol]8.2 g/dLLow12.0-16.0[facility] CenterLaboratory - Chemistry and Chemistry - challengeOrdered By: Seth Dupree on 08-14-2025 Calcium [Mass/Vol]8.4 mg/dLLow8.5-10.1FSelect Medical Specialty Hospital - TrumbullChloride [Moles/Vol]101 mmol/G19-220WdpkxulmmAdena Regional Medical CenterCO2 [Moles/Vol]23.9 mmol/L21.0-32.0[facility] CenterCreatinine [Mass/Vol]1.51 mg/dL High0.55-1.02[facility] CenterGFR/1.73 sq M.predicted MDRD (S/P/Bld) [Vol rate/Area]40 mL/min/{1.73_m2}Low>=60 mL/min/1.[address]m [address] [place], [place] [address]Glucose [Mass/Vol]108 mg/mJRxzj13-678AzxusyuzfAdena Regional Medical CenterNatriuretic peptide B (Bld) [Mass/Vol]1330.0 pg/mL<=1800.0 [facility] CenterPotassium [Moles/Vol]4.2 mmol/L3.5-5.1FOhioHealth Marion General Hospitalodium [Moles/Vol]134 mmol/CGmm263-730BbqihxauxAdena Regional Medical CenterUrea nitrogen [Mass/Vol]32.0 mg/dLHigh7.0-18.0[facility] CenterUrea nitrogen/Creatinine [Mass ratio]21.2 mg/mgAdena Regional Medical CenterLaboratory - Hematology and Cell countsOrdered By: Seth Dupree on 17-41-4644Khoxdpyw granulocytes/100 WBC (Bld)0.4 %0.0-0.5FSelect Medical Specialty Hospital - TrumbullLeukocytes [#/volume] corrected for nucleated erythrocytes in Blood by Automated counOrdered By: Seth Dupree on 61-74-5930WOO corrected for nucl RBC Auto (Bld) [#/Vol]6.9 10 3/uL4.0-11.0[facility] Lymphocytes Auto (Bld) [#/Vol]Ordered By: Seth Dupree on 05-22-5280Nkpugrdfmgt (Bld) [#/Vol]0.7 10 3/uLLow1.2-3.8[facility] Lymphocytes/100 WBC Auto (Bld)Ordered By: Seth Dupree on 08-14-2025 Lymphocytes/100 WBC (Bld)9.4 %Low20.5-60.0[facility] CenterH Auto (RBC) [Entitic mass]Ordered By: Seth Dupree on 80-22-0217JFE (RBC) [Entitic mass]28.3 pg26.7-34.0[facility] CenterMCHC Auto (RBC) [Mass/Vol]Ordered By: Seth Dupree on 48-04-4011UREY (RBC) [Mass/Vol]32.9 g/dL 29.9-35.2FSelect Medical Specialty Hospital - TrumbullMCV Auto (RBC) [Entitic vol]Ordered By: Seth Dupree on 99-40-3711ILJ (RBC) [Entitic vol]85.9 fL81.0-99.0[facility] CenterMonocytes Auto (Bld) [#/Vol]Ordered By: Seth Dupree on 61-58-0704Vvjeilsmr (Bld) [#/Vol]0.5 10 3/uL0.3-0.8[facility] CenterMonocytes/100 WBC Auto (Bld)Ordered By: Seth Dupree on 08-14-2025 Monocytes/100 WBC (Bld)6.7 %1.7-12.0[facility] CenterNeutrophils Auto (Bld) [#/Vol]Ordered By: Seth Dupree on 96-56-0952Fytukjbkxse (Bld) [#/Vol]5.6 10 3/uL1.4-6.5FSelect Medical Specialty Hospital - TrumbullNeutrophils/100 WBC Auto (Bld)Ordered By: Seth Dupree on 03-83-5599Edyjlpfslie/100 WBC (Bld)80.6 % High43.0-75.0[facility] CenterNo Panel InformationOrdered By: Seth Dupree on 13-90-4386Yppuvbpskdi # (Auto)0.2 10 3/uL0.0-0.7FSelect Medical Specialty Hospital - TrumbullImmature Granulocyte # (Auto)0.03 10 3/uL0.00-0.03 [facility] CenterTroponin I High Nxpczermmux57.5 pg/mL4.0-51.3 [facility] CenterComment on above:CUT-OFF POINTS HAVE [...] (Bld) [Entitic vol]Ordered By: Seth Dupree on 39-20-3992Napcylmp mean volume (Bld) [Entitic vol]10.0 fL9.5-13.5FSelect Medical Specialty Hospital - Trumbull Platelets Auto (Bld) [#/Vol]Ordered By: Seth Dupree on 84-21-4023Edaamsgie (Bld) [#/Vol]276 10 3/tD740-538RpdyujbebAdena Regional Medical CenterRBC Auto (Bld) [#/Vol]Ordered By: Seth Dupree on 46-70-5027ZLH (Bld) [#/Vol]2.90 10 6/uLLow 4.20-5.40Ohio Valley Hospitalerum or plasma anion gap determinationOrdered By: Seth Dupree on 50-89-4110Kvvmj gap [Moles/Vol]13.3 mmol/LFSelect Medical Specialty Hospital - TrumbullBasophils Auto (Bld) [#/Vol]Ordered By: Obiggy Robleroomar on 45-15-2689Fsrxbwmkj (Bld) [#/Vol]0.0 10 3/uL0.0-0.1FSelect Medical Specialty Hospital - TrumbullBasophils/100 WBC Auto (Bld)Ordered By: Oblubadapito Robleroomar on 08-76-2659Sfykxdndi/100 WBC (Bld)0.8 %0.2-2.0[facility] CenterEosinophils/100 WBC Auto (Bld)Ordered By: Obiggy Robleroomar on 08-11-2025 Eosinophils/100 WBC (Bld)4.4 %0.9-7.0[facility] Erythrocyte distribution width Auto (RBC) [Ratio]Ordered By: Agueda Robleroomar on 75-27-8078Rcvgkdlfeer distribution width (RBC) [Ratio]13.4 %11.0-15.0[facility] CenterGlomerular filtration rate (GFR) estimation in non- AmericanOrdered By: Agueda Azarr on 52-82-8955UPM/1.73 sq M.predicted among non-blacks MDRD (S/P/Bld) [Vol rate/Area]37 mL/min/{1.73_m2}Low>=60 mL/min/1.73m 2FSelect Medical Specialty Hospital - TrumbullHematocrit Auto (Bld) [Volume fraction]Ordered By: Agueda Azarr on 11-40-8690Cnjmrvhwfn (Bld) [Volume fraction]23.7 %Critically low36.0-48.0[facility] CenterComment on above:RESULTS CALLED TO ETHAN ZULETA RNHemoglobin [Mass/volume] in BloodOrdered By: Agueda Fields on 34-95-1557Mcyxrejqdp (Bld) [Mass/Vol]8.0 g/dLLow 12.0-16.0[facility] CenterLaboratory - Chemistry and Chemistry - challengeOrdered By: Agueda Fields on 33-11-5794Exzmqvh [Mass/Vol]8.5 mg/dL 8.5-10.1FSelect Medical Specialty Hospital - TrumbullChloride [Moles/Vol]107 mmol/L98-107 [facility] CenterCO2 [Moles/Vol]26.9 mmol/L21.0-32.0[facility] CenterCreatinine [Mass/Vol]1.36 mg/dLHigh0.55-1.02[facility] CenterGFR/1.73 sq M.predicted MDRD (S/P/Bld) [Vol rate/Area]45 mL/min/{1.73_m2}Low>=60 mL/min/1.73m 2FSelect Medical Specialty Hospital - TrumbullGlucose [Mass/Vol]91 mg/nJ36-115UmgzachrdAdena Regional Medical CenterPotassium [Moles/Vol] 3.9 mmol/L3.5-5.1FOhioHealth Marion General Hospitalodium [Moles/Vol]143 mmol/L 136-145[facility] CenterUrea nitrogen [Mass/Vol]31.0 mg/dLHigh 7.0-18.0[facility] CenterUrea nitrogen/Creatinine [Mass ratio] 22.8 mg/mgAdena Regional Medical CenterLaboratory - Hematology and Cell countsOrdered By: Agueda Fielsd on 65-41-1673Zqiriecf granulocytes/100 WBC (Bld)0.4 %0.0-0.5FSelect Medical Specialty Hospital - TrumbullLeukocytes [#/volume] corrected for nucleated erythrocytes in Blood by Automated counOrdered By: Agueda Fields on 85-99-0112EQO corrected for nucl RBC Auto (Bld) [#/Vol]5.0 10 3/uL4.0-11.0[facility] CenterLymphocytes Auto (Bld) [#/Vol] Ordered By: Agueda Fields on 90-78-1727Wdrccuztbtg (Bld) [#/Vol]0.8 10 3/uLLow 1.2-3.8[facility] CenterLymphocytes/100 WBC Auto (Bld)Ordered By: Agueda Fields on 77-31-7773Wkhgejrawwb/100 WBC (Bld)15.6 %Low20.5-60.0 [facility] CenterMCH Auto (RBC) [Entitic mass]Ordered By: Oblubadapito Daromar on 13-59-9538BWJ (RBC) [Entitic mass]29.0 pg26.7-34.0[facility] CenterMCHC Auto (RBC) [Mass/Vol]Ordered By: Oblubadah Daromar on 50-07-7964KZZA (RBC) [Mass/Vol]33.8 g/dL29.9-35.2FSelect Medical Specialty Hospital - TrumbullMCV Auto (RBC) [Entitic vol]Ordered By: Oblubadapito Daromar on 26-95-0296HCY (RBC) [Entitic vol]85.7 fL81.0-99.0[facility] CenterMonocytes Auto (Bld) [#/Vol]Ordered By: Oblubadah Daromar on 07-22-7079Ogwxhrjoj (Bld) [#/Vol]0.6 10 3/uL0.3-0.8[facility] CenterMonocytes/100 WBC Auto (Bld)Ordered By: Oblubadah Daromar on 91-36-5733Rrjxnanti/100 WBC (Bld)11.4 % 1.7-12.0[facility] CenterNeutrophils Auto (Bld) [#/Vol]Ordered By: Obaydah Daromar on 56-13-9673Dexwlhxmvyf (Bld) [#/Vol]3.4 10 3/uL1.4-6.5 [facility] CenterNeutrophils/100 WBC Auto (Bld)Ordered By: Oblubadah Daromar on 24-48-5330Gslsxzmypfh/100 WBC (Bld)67.4 %43.0-75.0[facility] CenterNo Panel InformationOrdered By: Oblubadah Daromar on 12-21-9925Avenyoaacon # (Auto)0.2 10 3/uL0.0-0.7FSelect Medical Specialty Hospital - TrumbullImmature Granulocyte # (Auto)0.02 10 3/uL0.00-0.03[facility] CenterPlatelet mean volume Auto (Bld) [Entitic vol]Ordered By: Obaydah Daromar on 95-64-8981Hpeongfv mean volume (Bld) [Entitic vol]9.8 fL9.5-13.5 [facility] CenterPlatelets Auto (Bld) [#/Vol]Ordered By: Obaydah Daromar on 47-43-8980Wdphpocgr (Bld) [#/Vol]236 10 3/qY538-729EddvlronuAdena Regional Medical CenterRBC Auto (Bld) [#/Vol]Ordered By: Obaydah Daromar on 94-43-0595VNB (Bld) [#/Vol]2.59 10 6/uLLow4.20-5.40[facility] Valley Hospitalerum or plasma anion gap determinationOrdered By: Obaydah Daromar on 71-68-7264Katdu gap [Moles/Vol]13.0 mmol/LFSelect Medical Specialty Hospital - Trumbull Basophils Auto (Bld) [#/Vol]Ordered By: Cher Marker on 12-06-2294Blbbsdduz (Bld) [#/Vol]0.0 10 3/uL0.0-0.1FSelect Medical Specialty Hospital - TrumbullBasophils/100 WBC Auto (Bld)Ordered By: Cher Marker on 48-39-9797Qhmlhwwuh/100 WBC (Bld)0.5 %0.2-2.0[facility] CenterEosinophils/100 WBC Auto (Bld)Ordered By: Cher Marker on 24-36-1314Jffqoptgesr/100 WBC (Bld)2.1 %0.9-7.0[facility] CenterErythrocyte distribution width Auto (RBC) [Ratio]Ordered By: Cher Marker on 78-50-7493Qxzzzxbbzwz distribution width (RBC) [Ratio]13.2 %11.0-15.0[facility] CenterGlobulin Calc (S) [Mass/Vol]Ordered By: Cher Marker on 33-02-9283Xgwjqsmq (S) [Mass/Vol]3.2 g/dLAdena Regional Medical CenterGlomerular filtration rate (GFR) estimation in non- AmericanOrdered By: Cher Marker on 73-81-5815DWI/1.73 sq M.predicted among non-blacks MDRD (S/P/Bld) [Vol rate/Area]37 mL/min/{1.73_m2}Low>=60 mL/min/1.73m 2FSelect Medical Specialty Hospital - TrumbullHematocrit Auto (Bld) [Volume fraction]Ordered By: Cher Marker on 97-52-3507Dlvqpixzmf (Bld) [Volume fraction]25.9 %Low36.0-48.0[facility] CenterHemoglobin [Mass/volume] in BloodOrdered By: Cher Marker on 15-97-5874Ldgajhozmu (Bld) [Mass/Vol]8.7 g/dLLow12.0-16.0[facility] CenterLaboratory - Chemistry and Chemistry - challengeOrdered By: Agueda Fields on 08-10-2025 Bilirubin Ql (U)NegativeNEGATIVEAdena Regional Medical CenterGlucose (U) [Mass/Vol]NegativeNEGATIVEAdena Regional Medical CenterKetones Ql (U) NegativeNEGATIVEAdena Regional Medical CenterpH (U)6.0 [pH]5.0-9.0[facility] Valley Hospitalpecific gravity (U) [Rel density]1.0101.005-1.025 [facility] CenterUrobilinogen Qn (U)0.2 {Rossy'U}/dL0.2-1.0 [facility] CenterLaboratory - Chemistry and Chemistry - challengeOrdered By: Cher Marker on 75-79-3906Otgalaf [Mass/Vol]3.1 g/dLLow 3.4-5.0[facility] CenterALP [Catalytic activity/Vol]46 U/L46-116 [facility] CenterALT [Catalytic activity/Vol]19 U/L14-59 [facility] CenterAST [Catalytic activity/Vol]20 U/L15-37 [facility] CenterBilirubin [Mass/Vol]0.4 mg/dL0.2-1.0[facility] CenterCalcium [Mass/Vol]8.6 mg/dL8.5-10.1FSelect Medical Specialty Hospital - TrumbullChloride [Moles/Vol]102 mmol/J73-224WuxuanrqpAdena Regional Medical CenterCO2 [Moles/Vol]26.6 mmol/L21.0-32.0[facility] Creatinine [Mass/Vol]1.36 mg/dLHigh0.55-1.02[facility] GFR/1.73 sq M.predicted MDRD (S/P/Bld) [Vol rate/Area]45 mL/min/{1.73_m2}Low>=60 mL/min/1.73m 2FSelect Medical Specialty Hospital - TrumbullGlucose [Mass/Vol]116 mg/dLHigh 74-106[facility] CenterLactate [Moles/Vol]0.8 mmol/L0.4-2.0 [facility] CenterNatriuretic peptide B (Bld) [Mass/Vol]1378.0 pg/mL<=1800.0[facility] CenterPotassium [Moles/Vol]3.8 mmol/L 3.5-5.1FSelect Medical Specialty Hospital - TrumbullProtein [Mass/Vol]6.3 g/dLLow6.4-8.2 [facility]odium [Moles/Vol]141 mmol/U844-077NmwwrrrsbAdena Regional Medical CenterUrea nitrogen [Mass/Vol]34.0 mg/dLHigh7.0-18.0[facility] CenterUrea nitrogen/Creatinine [Mass ratio]25.0 mg/mgAdena Regional Medical CenterLaboratory - Hematology and Cell countsOrdered By: Cher Marker on 71-00-3579Fpgmnyhr granulocytes/100 WBC (Bld)0.5 %0.0-0.5 [facility] CenterLaboratory - Specimen informationOrdered By: Agueda Fields on 20-42-3868Stioftbese (U)CLEARCLEARFSelect Medical Specialty Hospital - TrumbullColor (U)LT. YELLOWYELLOWAdena Regional Medical CenterLaboratory - UrinalysisOrdered By: Agueda Fields on 30-71-7453Dkyqnmfwm esterase Test strip Ql (U)TRACEAbnormalNEGATIVEAdena Regional Medical CenterMucus Ql (Urine sed) NONE SEENNONE SEENAdena Regional Medical CenterNitrite Ql (U)Negative NEGATIVEAdena Regional Medical CenterProtein Ql (U)100 mg/dLAbnormal NEG/TRACEAdena Regional Medical CenterLeukocytes [#/volume] corrected for nucleated erythrocytes in Blood by Automated counOrdered By: Cher Marker on 96-35-0119NFY corrected for nucl RBC Auto (Bld) [#/Vol]6.2 10 3/uL4.0-11.0 [facility] CenterLymphocytes Auto (Bld) [#/Vol]Ordered By: Cher Marker on 14-84-5700Bxbrwxjnjoo (Bld) [#/Vol]0.9 10 3/uLLow1.2-3.8 [facility] CenterLymphocytes/100 WBC Auto (Bld)Ordered By: Cher Marker on 81-29-3887Bqveluudoum/100 WBC (Bld)14.4 %Low20.5-60.0[facility] CenterH Auto (RBC) [Entitic mass]Ordered By: Cher Marker on 98-77-9573RQD (RBC) [Entitic mass]29.0 pg26.7-34.0[facility] Medical CenterMCHC Auto (RBC) [Mass/Vol]Ordered By: Cher Marker on 94-33-7117ZUNL (RBC) [Mass/Vol]33.6 g/dL29.9-35.2FSelect Medical Specialty Hospital - TrumbullMCV Auto (RBC) [Entitic vol]Ordered By: Cher Marker on 04-39-4764NOQ (RBC) [Entitic vol]86.3 fL81.0-99.0[facility] Medical CenterMonocytes Auto (Bld) [#/Vol]Ordered By: Cher Marker on 33-64-2663Gnoluzcxj (Bld) [#/Vol]0.5 10 3/uL0.3-0.8[facility] Medical CenterMonocytes/100 WBC Auto (Bld)Ordered By: Cher Marker on 58-64-6835Worzbealx/100 WBC (Bld)8.1 %1.7-12.0[facility] Medical CenterNeutrophils Auto (Bld) [#/Vol]Ordered By: Cher Marker on 23-01-1542Uuwmvznhhme (Bld) [#/Vol]4.6 10 3/uL1.4-6.5FSelect Medical Specialty Hospital - TrumbullNeutrophils/100 WBC Auto (Bld)Ordered By: Cher Marker on 95-30-6059Afwwqztldrf/100 WBC (Bld)74.4 %43.0-75.0[facility] CenterNo Panel InformationOrdered By: Agueda Fields on 17-15-8670Hmfzh BacteriaTRACE #/HPFAbnormalNONE SEENAdena Regional Medical CenterUrine Culture ReflexedNOAdena Regional Medical CenterUrine Occult BloodLARGE AbnormalNEGATIVEAdena Regional Medical CenterUrine Other CastsNONE SEEN #/LPFNONE [facility] HospitalUrine Other CrystalsNone Seen #/HPFNone [facility] HospitalUrine CAY44-99 #/HPFAbnormal0-2 [facility] CenterUrine Squamous Epithelial CellsFEW #/LPF AbnormalNONE/RAREAdena Regional Medical CenterUrine WBC0-2 #/HPFAbnormalNONE [facility] HospitalNo Panel InformationOrdered By: Cher Marker on 14-05-6799Zyoeiqllaok # (Auto)0.1 10 3/uL0.0-0.7FSelect Medical Specialty Hospital - TrumbullImmature Granulocyte # (Auto)0.03 10 3/uL0.00-0.03A[facility] Medical CenterTroponin I High Wulavfwdbbs40.5 pg/mL4.0-51.3FSelect Medical Specialty Hospital - TrumbullComment on above:CUT-OFF POINTS HAVE BEEN ESTABLISHED BASED [...] (Bld) [Entitic vol]Ordered By: Cher Marker on 52-85-1668Hiyatrae mean volume (Bld) [Entitic vol]9.9 fL9.5-13.5FSelect Medical Specialty Hospital - Trumbull Platelets Auto (Bld) [#/Vol]Ordered By: Cher Marker on 75-12-6097Gzqefyeuz (Bld) [#/Vol]274 10 3/vM462-742OjjjcvqfiAdena Regional Medical CenterRBC Auto (Bld) [#/Vol]Ordered By: Cher Marker on 45-36-9029TAW (Bld) [#/Vol]3.00 10 6/uLLow 4.20-5.40Ohio Valley Hospitalerum or plasma albumin/globulin mass ratioOrdered By: Cher Marker on 39-82-1478Cbqtcpm/Globulin [Mass ratio]1.0 {ratio}Ohio Valley Hospitalerum or plasma anion gap determination Ordered By: Cher Marker on 88-68-2219Atwqg gap [Moles/Vol]16.2 mmol/L [facility] CenterBasophils Auto (Bld) [#/Vol]Ordered By: Valentin Leonard on 09-47-5490Aybvkjbja (Bld) [#/Vol]0.05 10*3/uL<0.11A[facility] Medical CenterBasophils/100 WBC Auto (Bld)Ordered By: Valentin Leonard on 74-99-9509Rjnnmfzyr/100 WBC (Bld)0.8 %[facility] Medical CenterBlood manual differential comment interpretation narrativeOrdered By: Valentin Leonard on 69-93-0623Bhczvp differential comment Arturo (Bld) [Interp]AutoAdena Regional Medical CenterCB W Auto Differential panel (Bld)on 93-63-0574Zummyhhit (Bld) [#/Vol]0.05 10*3/uLNormal<0.11CKettering Health [facility] on above: Order Comment: Specimen Type: BLOOD SPECIMEN Ordering Facility: [facility] Address: [address] [place], [place] [address]Performed By: #### 26601-2 #### [facility] CLIA [id number] [address] [place] [address] [place] [address] [place] OF AMERICABasophils/100 WBC (Bld)0.8 % NormalOhioHealth Arthur [facility] on above:Order Comment: Specimen Type: BLOOD SPECIMEN Ordering Facility: [facility] Address: [address] [place], [place] [address]Performed By: #### 93252-6 #### [facility] CLIA [id number] [address] [place] [address] [place] OF AMERICADifferential cell count method Nom (Bld)AutoNormalCKettering Health Greene Memorial on above:Order Comment: Specimen Type: BLOOD SPECIMEN Ordering Facility: [facility] Address: [address] [place], [place] [address]Performed By: #### 90397-1 #### [facility] [place] [id number] [address] [place] [address] [place] OF AMERICAEosinophils (Bld) [#/Vol] 0.16 10*3/uLNormal<0.46[facility] on above:Order Comment: Specimen Type: BLOOD SPECIMEN Ordering Facility: [facility] Address: [address] [place], [place] [address]Performed By: #### 49752-1 #### [facility] IA [id number] [address] [place] [address] [place] AMERICAEosinophils/100 WBC (Bld)2.5 %NormalOhioHealth Arthur G.[facility]. [facility], [facility], [facility] on above:Order Comment: Specimen Type: BLOOD SPECIMEN Ordering Facility: [facility] Address: [address] [place], [place] [address]Performed By: #### 99197-4 #### [facility] CLIA [id number] [address] [place] [address] [place] AMERICAErythrocyte distribution width (RBC) [Ratio]13.5 %Qcehjo26.5-15.0[facility] on above:Order Comment: Specimen Type: BLOOD SPECIMEN Ordering Facility: [facility] Address: [address] [place], [place] [address]Performed By: #### 22811-3 #### [facility] CLIA [id number] [address] [place] [address] [place] OF AMERICAHematocrit (Bld) [Volume fraction]27.6 %Low36.0-46.0[facility] on above:Order Comment: Specimen Type: BLOOD SPECIMEN Ordering Facility: [facility] Address: [address] [place], [place] [address]Performed By: #### 57357-9 #### [facility] CLIA [id number] [address] [place] [address] [place] AMERICAHemoglobin (Bld) [Mass/Vol] 8.9 g/dLLow11.5-15.5CKettering Health Greene Memorial on above:Order Comment: Specimen Type: BLOOD SPECIMEN Ordering Facility: [facility] Address: [address] [place], [place] [address]Performed By: #### 94749-2 #### [facility] CLIA [id number] [address] [place] [address] [place] OF AMERICAImmature granulocytes (Bld) [#/Vol]0.03 10*3/uLNormal<0.10[facility] on above:Order Comment: Specimen Type: BLOOD SPECIMEN Ordering Facility: [facility] Address: [address] [place], [place] [address]Performed By: #### 81076-7 #### [facility] CLIA [id number] [address] [place] [address] [place] AMERICAImmature granulocytes/100 WBC (Bld)0.5 %NormalOhioHealth Arthur G.[facility], [facility] on above:Order Comment: Specimen Type: BLOOD SPECIMEN Ordering Facility: [facility] Address: [address] [place], [place] [address]Performed By: #### 59871-8 #### [facility] CLIA [id number] [address] [place] [address] [place] OF AMERICALymphocytes (Bld) [#/Vol] 0.77 10*3/uLLow1.00-4.00[facility] on above:Order Comment: Specimen Type: BLOOD SPECIMEN Ordering Facility: [facility] Address: [address] [place], [place] [address]Performed By: #### 79193-0 #### [facility] CLIA [id number] [address] [place] [address] [place] [facility] HOSPITALLymphocytes/100 WBC (Bld) 12.3 %NormalOhioHealth Arthur G.[facility]. [facility], [facility] on above:Order Comment: Specimen Type: BLOOD SPECIMEN Ordering Facility: [facility] Address: [address] [place], [place] [address]Performed By: #### 42153-2 #### [facility] CLIA [id number] [address] [place] [address] (RBC) [Entitic mass]28.8 mfPsznqv26.0-34.0[facility] on above:Order Comment: Specimen Type: BLOOD SPECIMEN Ordering Facility: [facility] Address: [address] [place], [place] [address]Performed By: #### 76434-1 #### [facility] CLIA [id number] [address] [place] [address] (RBC) [Mass/Vol]32.2 g/wMEqqohp00.5-36.0[facility] on above:Order Comment: Specimen Type: BLOOD SPECIMEN Ordering Facility: [facility] Address: [address] [place], [place] [address]Performed By: #### 70874-6 #### [facility] CLIA [id number] [address] [place] [address] (RBC) [Entitic vol]89.3 vSYlmayw26.0-100.0[facility] on above:Order Comment: Specimen Type: BLOOD SPECIMEN Ordering Facility: [facility] Address: [address] [place], [place] [address]Performed By: #### 92490-3 #### [facility] CLIA [id number] [address] [place] [address] [place] AMERICAMonocytes (Bld) [#/Vol]0.65 10*3/uLNormal<0.87[facility] on above:Order Comment: Specimen Type: BLOOD SPECIMEN Ordering Facility: [facility] Address: [address] [place], [place] [address]Performed By: #### 40407-2 #### [facility] CLIA [id number] [address] [place] [address] [place] AMERICAMonocytes/100 WBC (Bld)10.4 %NormalOhioHealth Arthur [facility] on above:Order Comment: Specimen Type: BLOOD SPECIMEN Ordering Facility: [facility] Address: [address] [place], [place] [address]Performed By: #### 78066-4 #### [facility] CLIA [id number] [address] [place] [address] [place] OF AMERICANeutrophils (Bld) [#/Vol] 4.62 10*3/uLNormal1.45-7.50[facility] on above:Order Comment: Specimen Type: BLOOD SPECIMEN Ordering Facility: [facility] Address: [address] [place], [place] [address]Performed By: #### 94815-8 #### [facility] CLIA [id number] [address] [place] [address] [place] AMERICANeutrophils/100 WBC (Bld) 73.5 %NormalOhioHealth Arthur [facility] on above:Order Comment: Specimen Type: BLOOD SPECIMEN Ordering Facility: [facility] Address: [address] [place], [place] [address]Performed By: #### 56059-8 #### [facility] CLIA [id number] [address] [place] [address] [place] OF AMERICANucleated RBC (Bld) [#/Vol] 10*3/uLNormal<0.01[facility] on above:Order Comment: Specimen Type: BLOOD SPECIMEN Ordering Facility: [facility] Address: [address] [place], [place] [address]Performed By: #### 47412-0 #### [facility] CLIA [id number] [address] [place] [address] [place] AMERICANucleated RBC/100 WBC (Bld) [Ratio]0.0 /100 WBCNormalCKettering Health Greene Memorial on above:Order Comment: Specimen Type: BLOOD SPECIMEN Ordering Facility: [facility] Address: [address] [place], [place] [address]Performed By: #### 50101-3 #### [facility] CLIA [id number] [address] [place] [address] [place] AMERICAPlatelet mean volume (Bld) [Entitic vol]9.9 fLNormal9.0-12.7CK[facility] on above: Order Comment: Specimen Type: BLOOD SPECIMEN Ordering Facility: [facility] Address: [address] [place], [place] [address]Performed By: #### 84690-6 #### [facility] CLIA [id number] [address] [place] [address] [place] AMERICAPlatelets (Bld) [#/Vol]295 10*3/bKImocrx718-906SvhislcpxOhioHealth [facility] on above:Order Comment: Specimen Type: BLOOD SPECIMEN Ordering Facility: [facility] Address: [address] [place], [place] [address]Performed By: #### 43618-4 #### [facility] CLIA [id number] [address] [place] [address] [place] AMERICARBC (Bld) [#/Vol]3.09 10*6/uLLow3.90-5.20[facility] on above:Order Comment: Specimen Type: BLOOD SPECIMEN Ordering Facility: [facility] Address: [address] [place], [place] [address]Performed By: #### 64313-6 #### [facility] CLIA [id number] [address] [place] [address] [place] AMERICAWBC (Bld) [#/Vol]6.28 10*3/uLNormal3.70-11.00[facility] on above:Order Comment: Specimen Type: BLOOD SPECIMEN Ordering Facility: [facility] Address: [address] [place], [place] [address]Performed By: #### 01891-4 #### [facility] CLIA [id number] [address] [place], [place] [address]Comprehensive metabolic 2000 panelon 63-96-2560Fdxbddm [Mass/Vol]3.7 g/dLLow3.9-4.9CKettering [facility] on above:Order Comment: Specimen Type: BLOOD SPECIMEN Ordering Facility: [facility] Address: [address] [place], [place] [address]Performed By: #### 94227-3 #### [facility] CLIA [id number] [address] [place] [address]82[address]UGF [Catalytic activity/Vol]45 U/JFodmxf39-497VaeduktimOhioHealth [facility] on above:Order Comment: Specimen Type: BLOOD SPECIMEN Ordering Facility: [facility] Address: [address] [place], [place] [address]Performed By: #### 35804-4 #### [facility] CLIA [id number] [address] [place], [place] [address]MWS [Catalytic activity/Vol]10 U/LNormal7-38[facility] on above:Order Comment: Specimen Type: BLOOD SPECIMEN Ordering Facility: [facility] Address: [address] [place], [place] [address]Performed By: #### 09158-0 #### [facility] CLIA [id number] [address] [place], [place] [address]Nctrc gap [Moles/Vol]10 mmol/LNormal8-15[facility] on above:Order Comment: Specimen Type: BLOOD SPECIMEN Ordering Facility: [facility] Address: [address] [place], [place] [address]Performed By: #### 59840-0 #### [facility] CLIA [id number] [address] [place], [place] [address]CIG [Catalytic activity/Vol]16 U/AYyveom49-01AtrufiqnfOhioHealth Arthur G.[facility]. [facility] on above:Order Comment: Specimen Type: BLOOD SPECIMEN Ordering Facility: [facility] Address: [address] [place], [place] [address]Performed By: #### 90024-9 #### [facility] CLIA [id number] [address] [place] [address]Muqiksntk [Mass/Vol]0.3 mg/dLNormal0.2-1.3CKettering [facility] on above:Order Comment: Specimen Type: BLOOD SPECIMEN Ordering Facility: [facility] Address: [address] [place], [place] [address]Performed By: #### 09546-9 #### [facility] CLIA [id number] [address] [place] [address]Gnylaun [Mass/Vol]9.0 mg/dLNormal8.5-10.2CKettering [facility] on above:Order Comment: Specimen Type: BLOOD SPECIMEN Ordering Facility: [facility] Address: [address] [place], [place] [address]Performed By: #### 56428-5 #### [facility] CLIA [id number] [address] [place] [address]Rszxzsqr [Moles/Vol]101 mmol/QTajkdu70-863PiytgrohwOhioHealth Arthur [facility] on above:Order Comment: Specimen Type: BLOOD SPECIMEN Ordering Facility: [facility] Address: [address] [place], [place] [address]Performed By: #### 59768-2 #### [facility] CLIA [id number] [address] [place], [place] [address]HP1 [Moles/Vol]28 mmol/JLuckfd43-41YojsiifttGlenbeigh Hospital Comment on above:Order Comment: Specimen Type: BLOOD SPECIMEN Ordering Facility: [facility] Address: [address] [place], [place] [address]Performed By: #### 49985-0 #### [facility] CLIA [id number] [address] [place] [address] 150[address]Tfwhnevgop [Mass/Vol]1.64 mg/dLHigh0.58-0.96Glenbeigh HospitalComment on above:Order Comment: Specimen Type: BLOOD SPECIMEN Ordering Facility: [facility] Address: [address] [place], [place] [address]Performed By: #### 91045-3 #### [facility] CLIA [id number] [address] [place] [address] 03476aPDYck SerPlBld CKD-EPI 233070 mL/min/1.73m???Low>=60Glenbeigh HospitalComment on above:Order Comment: Specimen Type: BLOOD SPECIMEN Ordering Facility: [facility] Address: [address] [place], [place] [address]Result Comment: Estimated Glomerular Filtration Rate (eGFR) is [...] not accurately reflect actual GFR.Performed By: #### 54976-5 #### [facility] CLIA [id number] [address] [place] [address] 19756Tqrwxqd [Mass/Vol]103 mg/lCYvgh76-36UmlbgyiuzGlenbeigh Hospital Comment on above:Order Comment: Specimen Type: BLOOD SPECIMEN Ordering Facility: [facility] Address: [address] [place], [place] [address]Result Comment: The [place] [employer] (ADA) provides guidance for cutoff [...] Standards of Medical Care in Diabetes 2016, [place] [employer]. Diabetes Care. 2016.39(Suppl 1).Performed By: #### 23598-1 #### [facility] CLIA [id number] [address] [place] [address] 66[address]Jquusgtvb [Moles/Vol]4.7 mmol/LNormal3.7-5.1CKettering [facility] on above:Order Comment: Specimen Type: BLOOD SPECIMEN Ordering Facility: [facility] Address: [address] [place], [place] [address]Performed By: #### 66527-2 #### [facility] CLIA [id number] [address] [place] [address] 504[address]Pecqafc [Mass/Vol]5.9 g/dLLow6.3-8.0[facility] Comment on above:Order Comment: Specimen Type: BLOOD SPECIMEN Ordering Facility: [facility] Address: [address] [place], [place] [address]Performed By: #### 23276-1 #### [facility] CLIA [id number] [address] [place] [address] 86543Alopsq [Moles/Vol]139 mmol/JLfokvq658-140DhjbtaixiGlenbeigh HospitalComselect specialty hospital-[facility] on above:Order Comment: Specimen Type: BLOOD SPECIMEN Ordering Facility: [facility] Address: [address] [place], [place] [address]Performed By: #### 85479-5 #### [facility] CLIA [id number] [address] [place] [address] 80852Uvgz nitrogen [Mass/Vol]32 mg/dLHigh7-21[facility] on above:Order Comment: Specimen Type: BLOOD SPECIMEN Ordering Facility: [facility] Address: [address] [place], [place] [address]Performed By: #### 32122-9 #### [facility] CLIA [id number] [address] [place] [address] 19021NVR SerPl-aCncon 64-29-4928Ztsyzxisloolop (EPO) Qn26.4 mIU/mL High2.6-18.5CKettering [facility] on above:Order Comment: Specimen Type: BLOOD SPECIMEN Ordering Facility: [facility] Address: [address] [place], [place] [address]Performed By: #### 34655-7 #### [facility] CLIA [id number] [address] [place] [address] [place] AMERICAEosinophils/100 WBC Auto (Bld)Ordered By: Valentin Leonard on 36-30-5703Qeqcfhwqdsu/100 WBC (Bld)2.5 % [facility] Medical CenterErythrocyte distribution width Auto (RBC) [Ratio]Ordered By: Valentin Abhyankar on 38-99-1027Gojvhegocid distribution width (RBC) [Ratio]13.5 %11.5-15.0[facility] Medical CenterFerritin SerPl-mCnc on 87-94-1730Uzisrkbz [Mass/Vol]174.0 ng/mYEsmzeb55.7-205.1CKettering [facility] on above:Order Comment: Specimen Type: BLOOD SPECIMEN Ordering Facility: [facility] Address: [address] [place], [place] [address]Performed By: #### 78149-4, 2284-8, 2132-9, 2276-4 #### [facility] CLIA [id number] [address] [place] [address] [place] AMERICAFolate SerPl-mCncon 51-60-0904Buywub [Mass/Vol]17.5 ng/mLNormal>4.7CK[facility]tering [facility] on above:Order Comment: Specimen Type: BLOOD SPECIMEN Ordering Facility: [facility] Address: [address] [place], [place] [address]Performed By: #### 84169-7, 2283-8, 9, 2275-4 #### [facility] CLIA [id number] [address] [place] [address] [place] AMERICAGlomerular filtration rate [Volume Rate/Area] in Serum, Plasma or Blood by CreatinineOrdered By: Valentin Leonard on 67-64-4379Nrucpvlxfq filtration rate [Volume Rate/Area] in Serum, Plasma or Blood by Rkigcmzise93 mL/min/1.73m???Low>=60[facility] Medical CenterComment on above:Estimated Glomerular Filtration [...] Leonard on 07-15-2025 Hematocrit (Bld) [Volume fraction]27.6 %Low36.0-46.0[facility] Medical CenterHemoglobin [Mass/volume] in BloodOrdered By: Valentin Leonard on 07-15-2025 Hemoglobin (Bld) [Mass/Vol]8.9 g/dLLow11.5-15.5FSelect Medical Specialty Hospital - Trumbull Iron and Iron binding capacity panelon 03-70-2288Spar [Mass/Vol]45 ug/dLNormal 41-186[facility] on above:Order Comment: Specimen Type: BLOOD SPECIMEN Ordering Facility: [facility] Address: [address] [place], [place] [address]Performed By: #### 29915-7, 2283-8, 9, 4 #### [facility] CLIA [id number] [address] [place] [address] [place] AMERICAIron binding capacity [Mass/Vol]255 ug/dDLcmwec059-978EwkufughhOhioHealth Arthur [facility] on above:Order Comment: Specimen Type: BLOOD SPECIMEN Ordering Facility: [facility] Address: [address] [place], [place] [address]Performed By: #### 78862-7, 2284-8, 2-9, 6-4 #### [facility] CLIA [id number] [address] [place] [address] [place] AMERICAIron/TIBC [Molar ratio]17.6 %Kxceig66.0-57.0[facility] on above:Order Comment: Specimen Type: BLOOD SPECIMEN Ordering Facility: [facility] Address: [address] [place], [place] [address]Performed By: #### 30280-8, 2284-8, 2131-9, 6-4 #### [facility] CLIA [id number] [address] [place] [address] [place] AMERICAIron binding capacity [Mass/volume] in Serum or PlasmaOrdered By: Valentin Leonard on 24-58-4376Kufx binding capacity [Mass/Vol]255 ug/yC234-853TxqrpvvikAdena Regional Medical CenterIron saturation [Mass Fraction] in Serum or PlasmaOrdered By: Valentin Leonard on 51-81-8680Pbvg saturation [Mass fraction]17.6 %15.0-57.0[facility] CenterLaboratory - Chemistry and Chemistry - challengeOrdered By: Valentin Abrebecca on 11-77-1383Lalllsx [Mass/Vol]3.7 g/dLLow3.9-4.9[facility] CenterALP [Catalytic activity/Vol]45 U/Y44-574LevjwoaznAdena Regional Medical CenterALT [Catalytic activity/Vol]10 U/L7-38[facility] CenterAST [Catalytic activity/Vol]16 U/A48-35MervkrcmpAdena Regional Medical CenterBilirubin [Mass/Vol]0.3 mg/dL0.2-1.3FSelect Medical Specialty Hospital - TrumbullCalcium [Mass/Vol]9.0 mg/dL8.5-10.2FSelect Medical Specialty Hospital - TrumbullChloride [Moles/Vol]101 mmol/L 98-107[facility] CenterCO2 [Moles/Vol]28 mmol/D36-25BiwgdpeciAdena Regional Medical CenterCreatinine [Mass/Vol]1.64 mg/dLHigh0.58-0.96[facility] CenterFerritin [Mass/Vol]174.0 ng/mL14.7-205.1FSelect Medical Specialty Hospital - TrumbullGlucose [Mass/Vol]103 mg/iLEujb63-64ZlhbpjmtdAdena Regional Medical CenterComment on above:The [place] [employer] (ADA) provides guidance for cutoff [...] diabetes.Reference: Standardso[employer] Medical Care in Diabetes 2016, [place] [employer]. Diabetes Care. 2016.39(Suppl 1).Iron [Mass/Vol]45 ug/mW09-877 [facility] CenterPotassium [Moles/Vol]4.7 mmol/L3.7-5.1FOhioHealth Marion General Hospitalodium [Moles/Vol]139 mmol/C205-072BklivejteAdena Regional Medical CenterUrea nitrogen [Mass/Vol]32 mg/dLHigh7-21[facility] CenterLaboratory - Chemistry and Chemistry - challengeOrdered By: Nathan Hathaway on 65-39-2815Nqkylpcsc (Vitamin B12) [Mass/Vol]1457 pg/sHTtth725-8830RwqktyigcAdena Regional Medical CenterLaboratory - Hematology and Cell countsOrdered By: Valentin Leonard on 54-63-9730Ltfkaqsbiat (Bld) [#/Vol]0.16 10*3/uL<0.46[facility] CenterImmature granulocytes (Bld) [#/Vol]0.03 10*3/uL<0.10 [facility] CenterImmature granulocytes/100 WBC (Bld)0.5 % [facility] CenterLeukocytes [#/volume] corrected for nucleated erythrocytes in Blood by Automated counOrdered By: Valentin Suarezankelizabeth on 07-15-2025 WBC corrected for nucl RBC Auto (Bld) [#/Vol]6.28 k/uL3.70-11.00[facility] CenterLymphocytes Auto (Bld) [#/Vol]Ordered By: Valentin Abhyankar on 69-92-7403Wiwpwlwjmip (Bld) [#/Vol]0.77 10*3/uLLow1.00-4.00[facility] CenterLymphocytes/100 WBC Auto (Bld)Ordered By: Valentin hyankar on 15-76-0869Fvtoqpjhiam/100 WBC (Bld)12.3 %[facility] MCH Auto (RBC) [Entitic mass]Ordered By: Valentin Faithhyankar on 99-85-8397YOI (RBC) [Entitic mass]28.8 pg26.0-34.0[facility] CenterMCHC Auto (RBC) [Mass/Vol]Ordered By: Valentin Faithhyankar on 20-42-4548YOKB (RBC) [Mass/Vol]32.2 g/dL30.5-36.0[facility] CenterMCV Auto (RBC) [Entitic vol] Ordered By: Valentin Suarezankelizabeth on 22-38-7082JBB (RBC) [Entitic vol]89.3 fL 80.0-100.0[facility] Center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 ANALYSISon 69-36-3653OUR90 L265P MUTATION RESULTNormalCProMedica Flower HospitalComment on above:Order Comment: Specimen Type: BLOOD SPECIMEN Ordering Facility: [facility] Address: [address] [place], [place] [address]Result Comment: 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 ANALYSIS Laboratory Accession Number: [id number] Sample Type: Peripheral Blood Result: 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 L265P is highly characteristic of [...] presence or absence of the L265P (c.794T>C, p.Poq235Wkc; g.60609825; [id number]) variant (mutation) in MYD88 gene (NM_002468.4) using [...] MYD88 mutations in human lymphoma. Nature 2011. 470(9676):115-9. 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 Am J Clin Pathol. 2013. 140(3):387-94. 3) Obi SP, Spencer L, Brooks G, et al. MYD88 L265P somatic mutation in Waldenstrom's macroglobulinemia. N Engl J Med. 2012. 367(9)668-33. 4) Almonte JQ, Juan J YS, Ariel LL, Tanya K. Toll-like receptors and cancer: MYD88 mutation and inflammation. Front Immunol. 2014 May 28;367(5):1-10. 5) Gabriel X, Li W, Maykel Q, et al. MYD88 L265P Mutation in Lymphoid Malignancies. Cancer Res. 2018. 78(10):9448-25. Disclaimer: This test was developed and its performance characteristics determined by [facility]'s Pathology and Laboratory Medicine Department. It has not been cleared or approved by the FDA. [facility]'s Pathology and Laboratory Medicine Department is regulated under CLIA as certified to perform high-complexity testing. This test is used for clinical purposes. It should not be regarded as investigational or for research. Test performed at [facility], [address] [place] [address]. CLIA Number: [id number] Interpretation performed by Natalee Bolanos, PhD, [facility] COUNTY HOSPITALDPerformed By: #### 98976- 5 #### [facility] CLIA [id number] [address] [place] [address] [place] OF AMERICAMonocytes Auto (Bld) [#/Vol] Ordered By: Valentin Leonard on 42-42-2659Sdydutpsv (Bld) [#/Vol]0.65 10*3/uL <0.87[facility] CenterMonocytes/100 WBC Auto (Bld)Ordered By: Valentin Leonard on 80-02-8155Pipfghhxl/100 WBC (Bld)10.4 %[facility] Medical CenterNeutrophils Auto (Bld) [#/Vol]Ordered By: Valentin Abhyankar on 28-66-8384Sqgcfzrbdxn (Bld) [#/Vol]4.62 10*3/uL1.45-7.50[facility] CenterNeutrophils/100 WBC Auto (Bld)Ordered By: Valentin Leonard on 03-23-5066Xpdtrqomdrj/100 WBC (Bld)73.5 %[facility] CenterNo Panel InformationOrdered By: Valentin Leonard on 77-98-1274Htqqbp59.5 ng/mL>4.7 [facility] CenterMYD88 L265P MutationSee commentAdena Regional Medical CenterComment on above: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 ANALYSISLaboratory Accession Number: [id number] Type: Peripheral BloodResult:MYD88 L265P (c.794T>C, p.Ixn127Yqe) detected with variant allelefraction (vaf) 0.98%.Interpr etation:The 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 This abnormality may also be found in diffuse large B- celllymphomas and in a small percentage of other small B-cell neoplasmsincluding chronic lymphocytic leukemia and marginal zone lymphomas.Clinical and pathologic correlation is suggested.Methodology:DNA extracted from the specimen is interrogated for the presence orabsence of the L265P (c.794T>C, p.Lym628Hpe; g.36868939; [id number])variant (mutation) in MYD88 gene (NM_002468.4) using droplet digitalpolymerase chain reaction (PCR). Droplet digital PCR includespartitioning of DNA into droplets, droplet independent PCR,interrogation using allele specific hydrolysis probes, and analysis ofdroplets using Poisson distribution to calculate the copy number ofMYD88 L265P and wild-type MYD88. The reference genome used zyYBBj95/hg38.Limitations:This test is designed to detect the L265P variant in the MYD88 gene.Uncommon variants or single nucleotide polymorphisms may affectbinding of probes or primers and may rarely result in false negative,false positive, or indeterminate results. Other variants in MYD88 willnot be identifiedby this test. The lower limit of detection of thisassay is approximately 0.5% variant allele fraction (vaf) for wzwMKS20 L265P variant. Although vaf is provided for reference, thisvalue should be interpreted with caution as this test is intended forqualitative purposes and is not validated as a quantitative test. AevYSP37 L265P result cannot be used on a standalone basis for diagnosisof lymphoplasmacytic lymphoma and needs to be considered in thecontext of clinical and morphologic presentation.References:1) Lundy VN, Cristhian RM, Hannah R, et al. Oncogenically active WZI18afbothavw in human lymphoma. Nature 2011. 470(2577):115-9.2) Joya SL, Anai WagonerJ, DW, James L, Mikey JR, Hsi ED: [id number] somatic mutation: its usefulness in the differential diagnosisof bone marrow involvement by B-cell lymphoproliferative disorders. AmJ Clin Pathol. 2013. 140(3):387-94.3) Obi SP, Spencer L, Brooks G,et al. 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 N Engl J Med. 2012. 367(0)266-33.4) Gage JQ, Juan J YS, Ariel LL, Horikawa K. Toll-like receptorsand cancer: MYD88 mutation and inflammation. Front Immunol. 2014 ;367(5):1-10.5) Nery X, Francy W, Maykel Q, et al. 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 Cancer Res. 2018. 78(10):5916-19.Disclaimer:This test was developed and its performance characteristics determinedby [facility]'s Pathology and Laboratory Medicine Department. Ithas not been cleared or approved by the FDA. [facility]Path[facility] is regulated under CLIAas certified to perform high-complexity testing. Thistest is used forclinical purposes. It should not be regarded as investigational or forresearch.Testperformed at [facility] Main Lab, [address] [place], [place] [address] [address]. CLIA Number: [id number] performed by Natalee Bolanos, PhD, [facility] HOSPITALDNucleated RBC Auto (Bld) [#/Vol]Ordered By: Valentin Leonard on 74-37-2524Vwpujadcq RBC (Bld) [#/Vol]10*3/uL<0.01[facility] Medical CenterNucleated erythrocytes [Presence] in Blood by Automated count Ordered By: Valentin Leonard on 35-98-2494Jebrdeljy RBC Auto Ql (Bld)0.0 /100{WBC}[facility] Medical CenterPlatelet mean volume Auto (Bld) [Entitic vol]Ordered By: Valentin Leonard on 69-66-6387Oeqwpife mean volume (Bld) [Entitic vol]9.9 fL9.0-12.7FSelect Medical Specialty Hospital - TrumbullPlatelets Auto (Bld) [#/Vol]Ordered By: Valentin Leonard on 20-77-8951Sflslrqlo (Bld) [#/Vol]295 10*3/zQ260-473FiksmtfoaAdena Regional Medical CenterProtein [Mass/volume] in Serum or PlasmaOrdered By: Valentin Leonard on 94-55-4002Pbthmht [Mass/Vol]5.9 g/dLLow 6.3-8.0[facility] CenterRBC Auto (Bld) [#/Vol]Ordered By: Valentin Leonard on 10-74-3498CLC (Bld) [#/Vol]3.09 10*6/uLLow3.90-5.20Ohio Valley Hospitalerum or plasma anion gap determinationOrdered By: Valentin Leonard on 66-19-1578Gdlwb gap [Moles/Vol]10 mmol/L8-15[facility] Valley Hospitalerum or plasma erythropoietin (EPO) measurement (units/volume) Ordered By: Valentin Leonard on 18-94-9315Zhommelwbkhhsd (EPO) Qn26.4 mIU/mLHigh 2.6-18.5FSelect Medical Specialty Hospital - TrumbullVit B12 SerPl-mCncon 07-15-2025 Cobalamin (Vitamin B12) [Mass/Vol]1457 pg/hQMeyt823-2981RxvyiqspwProMedica Flower HospitalComselect specialty hospital-pontiac on above:Order Comment: Specimen Type: BLOOD SPECIMEN Ordering Facility: [facility] Address: [address] [place], [place] [address]Performed By: #### 15324-5, 2284-8, 2132-9, 2276-4 #### [facility] CLIA [id number] [address] [place] [address] [place] OF AMERICACNPNon [phone] Telephone (NCCAP) LASHAUN JOAQUIN ([id number]) 1940 F Date Time Provider Department 07/10/25 [...] Hathaway's office Please return the call at [phone] KERRY Menendez Felicia, RN 07/10/2025 12:07 PM [...] (None) Encounter Status:Closed by YOLANDA COBIAN on 07/10/25NoalCProMedica Flower HospitalAlbumin [Mass/volume] in Serum or PlasmaOrdered By: Nathan Hathaway on 29-03-5569Qlfpjsv [Mass/Vol]3.33 g/dLLow3.43-5.41[facility] W Auto Differential panel (Bld)on 62-67-4531Zawosphfb (Bld) [#/Vol] 0.05 10*3/uLNormal<0.11CK[facility] on above:Order Comment: Specimen Type: BLOOD SPECIMEN Ordering Facility: [facility] Address: [address] [place], [place] [address]Performed By: #### 49331-2 #### [facility] CLIA [id number] [address] [place] [address] [place] AMERICABasophils/100 WBC (Bld)0.9 % [facility] on above:Order Comment: Specimen Type: BLOOD SPECIMEN Ordering Facility: [facility] Address: [address] [place], [place] [address]Performed By: #### 33564-6 #### [facility] CLIA [id number] [address] [place] [address] [place] AMERICADifferential cell count method Nom (Bld)AutoNormalCKettering Health Greene Memorial on above:Order Comment: Specimen Type: BLOOD SPECIMEN Ordering Facility: [facility] Address: [address] [place], [place] [address]Performed By: #### 74293-8 #### [facility] CLIA [id number] [address] [place] [address] [place] AMERICAEosinophils (Bld) [#/Vol] 0.18 10*3/uLNormal<0.46[facility] on above:Order Comment: Specimen Type: BLOOD SPECIMEN Ordering Facility: [facility] Address: [address] [place], [place] [address]Performed By: #### 87086-9 #### [facility] CLIA [id number] [address] [place] [address] [place] AMERICAEosinophils/100 WBC (Bld)3.3 %NormalOhioHealth Arthur G.H. Bing, MD, Cancer Center on above:Order Comment: Specimen Type: BLOOD SPECIMEN Ordering Facility: [facility] Address: [address] [place], [place] [address]Performed By: #### 35675-9 #### [facility] IA [id number] [address] [place] [address] [place] AMERICAErythrocyte distribution width (RBC) [Ratio]13.5 %Gbwgod27.5-15.0[facility] on above:Order Comment: Specimen Type: BLOOD SPECIMEN Ordering Facility: [facility] Address: [address] [place], [place] [address]Performed By: #### 31392-0 #### [facility] IA [id number] [address] [place] [address] [place] AMERICAHematocrit (Bld) [Volume fraction]27.8 %Low36.0-46.0[facility] on above:Order Comment: Specimen Type: BLOOD SPECIMEN Ordering Facility: [facility] Address: [address] [place], [place] [address]Performed By: #### 45167-3 #### [facility] IA [id number] [address] [place] [address] [place] AMERICAHemoglobin (Bld) [Mass/Vol] 9.0 g/dLLow11.5-15.5CKettering Health [facility] Memorial on above:Order Comment: Specimen Type: BLOOD SPECIMEN Ordering Facility: [facility] Address: [address] [place], [place] [address]Performed By: #### 74303-9 #### [facility] IA [id number] [address] [place] [address] [place] AMERICAImmature granulocytes (Bld) [#/Vol]0.03 10*3/uLNormal<0.10[facility] on above:Order Comment: Specimen Type: BLOOD SPECIMEN Ordering Facility: [facility] Address: [address] [place], [place] [address]Performed By: #### 76180-7 #### [facility] IA [id number] [address] [place] [address] [place] AMERICAImmature granulocytes/100 WBC (Bld)0.5 %NormalOhioHealth Arthur G.[facility]. [facility], [facility], [facility] on above:Order Comment: Specimen Type: BLOOD SPECIMEN Ordering Facility: [facility] Address: [address] [place], [place] [address]Performed By: #### 07102-6 #### [facility] CLIA [id number] [address] [place] [address] [place] OF AMERICALymphocytes (Bld) [#/Vol] 0.87 10*3/uLLow1.00-4.00[facility] on above:Order Comment: Specimen Type: BLOOD SPECIMEN Ordering Facility: [facility] Address: [address] [place], [place] [address]Performed By: #### 85738-8 #### [facility] CLIA [id number] [address] [place] [address] STATES OF AMERICALymphocytes/100 WBC (Bld) 15.9 %NormalOhioHealth Arthur G.[facility]. [facility], [facility], Cancer Center on above:Order Comment: Specimen Type: BLOOD SPECIMEN Ordering Facility: [facility] Address: [address] [place], [place] [address]Performed By: #### 72770-4 #### [facility] CLIA [id number] [address] [place] [address] [facility] (RBC) [Entitic mass]28.8 llYyuccl13.0-34.0[facility] on above:Order Comment: Specimen Type: BLOOD SPECIMEN Ordering Facility: [facility] Address: [address] [place], [place] [address]Performed By: #### 94429-9 #### [facility] CLIA [id number] [address] [place] [address] (RBC) [Mass/Vol]32.4 g/hFHthcld88.5-36.0[facility] on above:Order Comment: Specimen Type: BLOOD SPECIMEN Ordering Facility: [facility] Address: [address] [place], [place] [address]Performed By: #### 93728-6 #### [facility] CLIA [id number] [address] [place] [address] [place] AMERICAMCV (RBC) [Entitic vol]89.1 eXMcotsb72.0-100.0[facility] on above:Order Comment: Specimen Type: BLOOD SPECIMEN Ordering Facility: [facility] Address: [address] [place], [place] [address]Performed By: #### 07004-6 #### [facility] IA [id number] [address] [place] [address] [place] AMERICAMonocytes (Bld) [#/Vol]0.61 10*3/uLNormal<0.87[facility] on above:Order Comment: Specimen Type: BLOOD SPECIMEN Ordering Facility: [facility] Address: [address] [place], [place] [address]Performed By: #### 93710-2 #### [facility] CLIA [id number] [address] [place] [address] [place] AMERICAMonocytes/100 WBC (Bld)11.2 %NormalOhioHealth Arthur G.[facility], [facility] on above:Order Comment: Specimen Type: BLOOD SPECIMEN Ordering Facility: [facility] Address: [address] [place], [place] [address]Performed By: #### 32712-5 #### [facility] CLIA [id number] [address] [place], [place] [address] [place] AMERICANeutrophils (Bld) [#/Vol] 3.72 10*3/uLNormal1.45-7.50[facility] on above:Order Comment: Specimen Type: BLOOD SPECIMEN Ordering Facility: [facility] Address: [address] [place], [place] [address]Performed By: #### 28262-2 #### [facility] CLIA [id number] [address] [place] [address] [place] AMERICANeutrophils/100 WBC (Bld) 68.2 %NormalOhioHealth Arthur G.[facility]. [facility], [facility] on above:Order Comment: Specimen Type: BLOOD SPECIMEN Ordering Facility: [facility] Address: [address] [place], [place] [address]Performed By: #### 14454-1 #### [facility] CLIA [id number] [address] [place] [address] [place] AMERICANucleated RBC (Bld) [#/Vol] 10*3/uLNormal<0.01[facility] on above:Order Comment: Specimen Type: BLOOD SPECIMEN Ordering Facility: [facility] Address: [address] [place], [place] [address]Performed By: #### 06545-2 #### [facility] CLIA [id number] [address] [place] [address] [place] AMERICANucleated RBC/100 WBC (Bld) [Ratio]0.0 /100 WBCNormalCKettering Health Greene Memorial on above:Order Comment: Specimen Type: BLOOD SPECIMEN Ordering Facility: [facility] Address: [address] [place], [place] [address]Performed By: #### 79283-3 #### [facility] CLIA [id number] [address] [place] [address] [place] AMERICAPlatelet mean volume (Bld) [Entitic vol]9.5 fLNormal9.0-12.7CKettering [facility] on above: Order Comment: Specimen Type: BLOOD SPECIMEN Ordering Facility: [facility] Address: [address] [place], [place] [address]Performed By: #### 01656-0 #### [facility] CLIA [id number] [address] [place] [address] [place] AMERICAPlatelets (Bld) [#/Vol]275 10*3/mZGcqroh044-704SxekngfpjOhioHealth Arthur [facility]. [facility] on above:Order Comment: Specimen Type: BLOOD SPECIMEN Ordering Facility: [facility] Address: [address] [place], [place] [address]Performed By: #### 04388-8 #### [facility] CLIA [id number] [address] [place], [place] [address]RB (Bld) [#/Vol]3.12 10*6/uLLow3.90-5.20[facility] on above:Order Comment: Specimen Type: BLOOD SPECIMEN Ordering Facility: [facility] Address: [address] [place], [place] [address]Performed By: #### 50250-8 #### [facility] CLIA [id number] [address] [place], [place] [address]W (Bld) [#/Vol]5.46 10*3/uLNormal3.70-11.00[facility] on above:Order Comment: Specimen Type: BLOOD SPECIMEN Ordering Facility: [facility] Address: [address] [place], [place] [address]Performed By: #### 85773-3 #### [facility] CLIA [id number] [address] [place], [place] [address]CNOVSPon 32-94-3309GQEAPM Visit (SP) Office ([place]) LASHAUN JOAQUIN ([id number]) 1940 F Date Time Provider Department 07/08/25 10:00 AM PAOLO CASILLAS During your visit today, we recorded the following information about you: Temperature Pulse Respiration Blood pressure 96.8 degrees 66/minute 18/minute 178/68 Weight Height 91.8 kg 1.664 m Paolo Casillas APRN.[employer] 07/10/2025 6:42 PM Signed PATIENT NAME: Lashaun [...] HISTORY: FAMILY HISTORY Proble (more content not included)...NormalPremier Health Atrium Medical CenterPNon [id number] ([facility]) LASHAUN JOAQUIN ([id number]) 1940 F Date Time Provider Department 07/08/25 PAOLO CASILLAS During your visit today, we recorded the following information about you: Bessie SabinoKayla 07/08/2025 11:24 AM Signed Please call Her daughter Marianna with today's lab results. [phone] Yolanda Cobian RN 07/10/2025 9:17 AM Signed Labs still pending. YORDAN Arambula Felicia, RN 07/10/2025 2:12 PM Signed Refer to providers phone encounter for details of follow up/intervention Yolanda Cobain RN Allergies As of Date: 07/08/2025 Noted [...] (None) Encounter Status:Closed by YOLANDA COBIAN on 07/10/25NormalCProMedica Flower HospitalComprehensive metabolic 2000 panelon 79-01-1819Jzkwdrj [Mass/Vol]3.6 g/dLLow3.9-4.9CKettering [facility] on above:Order Comment: Specimen Type: BLOOD SPECIMEN Ordering Facility: [facility] Address: [address] [place], [place] [address]Performed By: #### 23846-0 #### [facility] CLIA [id number] [address] [place] [address] [place] AMERICAALP [Catalytic activity/Vol] 48 U/DXvfatx93-921BahvwubtzOhioHealth Arthur [facility]. [facility] Center on above:Order Comment: Specimen Type: BLOOD SPECIMEN Ordering Facility: [facility] Address: [address] [place], [place] [address]Performed By: #### 54200-1 #### [facility] CLIA [id number] [address] [place] [address] [place] AMERICAALT [Catalytic activity/Vol] 13 U/LNormal7-38[facility] on above:Order Comment: Specimen Type: BLOOD SPECIMEN Ordering Facility: [facility] Address: [address] [place], [place] [address]Performed By: #### 04688-4 #### [facility] CLIA [id number] [address] [place], [place] [address] [place] AMERICAAnion gap [Moles/Vol]11 mmol/LNormal8-15[facility] on above:Order Comment: Specimen Type: BLOOD SPECIMEN Ordering Facility: [facility] Address: [address] [place], [place] [address]Performed By: #### 40888-5 #### [facility] CLIA [id number] [address] [place] [address] [place] AMERICAAST [Catalytic activity/Vol] 22 U/MOxvwqf42-19MmankpiygOhioHealth Arthur [facility] on above:Order Comment: Specimen Type: BLOOD SPECIMEN [facility] Facility[facility] Address: [address] [place], [place] [address]Performed By: #### 06784-9 #### [facility] CLIA [id number] [address] [place] [address] [place] AMERICABilirubin [Mass/Vol]0.3 mg/dLNormal0.2-1.3CKettering Health [facility] on above:Order Comment: Specimen Type: BLOOD SPECIMEN [facility] Facility[facility] Address: [address] [place], [place] [address]Performed By: #### 79802-1 #### [facility] CLIA [id number] [address] [place] [address] [place] AMERICACalcium [Mass/Vol]8.9 mg/dL Normal8.5-10.2CKettering Health [facility] on above:Order Comment: Specimen Type: BLOOD SPECIMEN [facility] Facility[facility] Address: [address] [place], [place] [address]Performed By: #### 78510-4 #### [facility] CLIA [id number] [address] [place] [address] [place] AMERICAChloride [Moles/Vol]106 mmol/SEpkjfm34-467HqlgjxsloOhioHealth Arthur [facility] on above:Order Comment: Specimen Type: BLOOD SPECIMEN [facility] Facility[facility] Address: [address] [place], [place] [address]Performed By: #### 36454-7 #### [facility] CLIA [id number] [address] [place] [address] [place] AMERICACO2 [Moles/Vol]24 mmol/L Shvgfw93-64ApsfwxexyOhioHealth Arthur G.[facility]. [facility] Center on above:Order Comment: Specimen Type: BLOOD SPECIMEN [facility] Facility: [facility] Address: [address] [place], [place] [address]Performed By: #### 66480-0 #### [facility] CLIA [id number] [address] [place] [address] [place] AMERICACreatinine [Mass/Vol]1.65 mg/dLHigh0.58-0.96[facility] on above:Order Comment: Specimen Type: BLOOD SPECIMEN [facility]ing Facility: [facility] Address: [address] [place], [place] [address]Performed By: #### 66633-3 #### [facility] CLIA [id number] [address] [place] [address] [place] AMERICAeGFRcr SerPlBld CKD-EPI 2020 31 mL/min/1.73m???Low>=60[facility] on above:Order Comment: Specimen Type: BLOOD SPECIMEN Ordering Facility: [facility] Address: [address] [place], [place] [address]Result Comment: Estimated Glomerular Filtration Rate (eGFR) is [...] not accurately reflect actual GFR.Performed By: #### 69924-5 #### [facility] IA [id number] [address] [place] [address] [place] OF AMERICAGlucose [Mass/Vol]100 mg/dL Gyig83-55QhtlvvmslOhioHealth [facility] on above:Order Comment: Specimen Type: BLOOD SPECIMEN Ordering Facility: [facility] Address: [address] [place], [place] [address]Result Comment: The [place] Diabetes Association (ADA) provides guidance for cutoff [...] Standards of Medical Care in Diabetes 2016, [place] Diabetes Association. Diabetes Care. 2016.39(Suppl 1).Performed By: #### 00725-6 #### [facility] [place] [id number] [address] [place] [address] [place] OF AMERICAPotassium [Moles/Vol]5.3 mmol/LHigh3.7-5.1CKettering Health Greene Memorial on above:Order Comment: Specimen Type: BLOOD SPECIMEN Ordering Facility: [facility] Address: [address] [place], [place] [address]Performed By: #### 21391-2 #### [facility] [place] [id number] [address] [place] [address] [place] AMERICAProtein [Mass/Vol]5.8 g/dL Low6.3-8.0[facility] on above:Order Comment: Specimen Type: BLOOD SPECIMEN Ordering Facility: [facility] Address: [address] [place], [place] [id number] By: #### 98512-8 #### [facility] CLIA [id number] [address] [place] [address] [place] AMERICASodium [Moles/Vol]141 mmol/L Chbsfc831-454SrpxauylwOhioHealth [facility] on above:Order Comment: Specimen Type: BLOOD SPECIMEN Ordering Facility: [facility] Address: [address] [place], [place] [address]Performed By: #### 18296-5 #### [facility] CLIA [id number] [address] [place] [address] [place] AMERICAUrea nitrogen [Mass/Vol]27 mg/dLHigh7-21[facility] on above:Order Comment: Specimen Type: BLOOD SPECIMEN Ordering Facility: [facility] Address: [address] [place], [place] [address]Performed By: #### 15660-6 #### [facility] CLIA [id number] [address] [place] [address] [place] AMERICAGlomerular filtration rate [Volume Rate/Area] in Serum, Plasma or Blood by CreatinineOrdered By: Nathan Hathaway on 20-82-9341Jjasblrcna filtration rate [Volume Rate/Area] in Serum, Plasma or Blood by Uvmnhrniyt00 mL/min/1.73m???Low>=60[facility] Comment on above:Estimated Glomerular [...] not accurately reflect actual GFR.IMMUNOFIXATION SCREEN, SERUMon 84-19-4466FRQOMXJHGGADQB (MPA)Poorly defined region of restricted mobility in [...] further for monoclonal gammopathy. Clinical correlation is necessary.NormalOhioHealth [facility] on above:Order Comment: Specimen Type: BLOOD SPECIMEN Ordering Facility: [facility] Address: [address] [place], [place] [address]Performed By: #### 41101-1 #### [facility] CLIA [id number] [address] [place] [address] [place] AMERICAMPA RESULTA poorly defined region of restricted mobility is present that may represent an M protein. AbnormalNo M protein is identified.[facility] on above: Order Comment: Specimen Type: BLOOD SPECIMEN Ordering Facility: [facility] Address: [address] [place], [place] [address]Performed By: #### 02155-2 #### [facility] CLIA [id number] [address] [place] [address] [place] OF AMERICASTAFF REVIEW ([facility])Reviewed by Dr. Jennifer David [facility] on above:Order Comment: Specimen Type: BLOOD SPECIMEN Ordering Facility: [facility] Address: [address] [place], [place] [address]Performed By: #### 21056-0 #### [facility] CLIA [id number] [address] [place] [address] [place] OF AMERICAIMMUNOGLOBULINS,IGG,IGA,IGM on 31-33-4338ZdL [Mass/Vol]64 mg/oSFzs34-226QiokedkguOhioHealth [facility] on above:Order Comment: Specimen Type: BLOOD SPECIMEN Ordering Facility: [facility] Address: [address] [place], [place] [address]Performed By: #### SERIMM #### [facility] CLIA [id number] [address] [place] [address] [place] AMERICAIgG [Mass/Vol]280 mg/dLLow 700-1600[facility] on above:Order Comment: Specimen Type: BLOOD SPECIMEN Ordering Facility: [facility] Address: [address] [place], [place] [address]Performed By: #### SERIMM #### [facility] CLIA [id number] [address] [place] [address] [place] AMERICAIgM [Mass/Vol]317 mg/dLHigh 40-230Glenbeigh HospitalComment on above:Order Comment: Specimen Type: BLOOD SPECIMEN Ordering Facility: [facility] Address: [address] [place], [place] [address]Performed By: #### SERIMM #### [facility] CLIA [id number] [address] [place] [address] [place] AMERICAIgA [Mass/volume] in Serum or PlasmaOrdered By: Fanny Bedoya on 31-12-2646DuA [Mass/Vol]64 mg/iKAyt10-520 [facility] CenterIgG [Mass/volume] in Serum or PlasmaOrdered By: Fanny Bedoya on 31-36-0051XjU [Mass/Vol]280 mg/aLLgy372-2786FrlapijhdAdena Regional Medical CenterIgM [Mass/volume] in Serum or PlasmaOrdered By: Fanny Bedoya on 74-92-0733KoZ [Mass/Vol]317 mg/jZAiyd46-376OibcrsfasAdena Regional Medical Center Immunoglobulin light chains.kappa.free [Mass/volume] in SerumOrdered By: Nathan Hathaway on 89-04-1144Rzaafmovzkaocg light chains.kappa.free (S) [Mass/Vol] 300.9 mg/LHigh3.3-19.4FSelect Medical Specialty Hospital - TrumbullComment on above:Rarely, increased serum free light chains levels may not be detected or accurately quantified due to prozone phenomenon or in high viscosity samples using this immunoturbidimetric assay. Correlation with other laboratory results and clinical findings is recommended. The [place] Free Light Chain was performed using the Binding Site Optilite immunoturbidimetric method. Result obtained with different assay methods or kits cannot be used interchangeably.Immunoglobulin light chains.kappa.free/Immunoglobulin light chains.lambda.free [MassOrdered By: Nathan Hathaway on 84-92-1060Qbwdqgdntrmvju light chains.kappa.free/Immunoglobulin light chains.lambda.free (S) [Mass ratio]12.64 High0.26-1.65[facility] CenterImmunoglobulin light chains.lambda.free [Mass/volume] in Serum or PlasmaOrdered By: Nathan Hathaway on 55-63-7335Sjquhjwzgbfmdt light chains.lambda.free [Mass/Vol]23.8 mg/L5.7-26.3 [facility] CenterComment on above:Rarely, increased serum [...] methods or kits cannot be used interchangeably.KAPPA/BOWLES,FREE,SERon 32-24-7355Lodhisfhxjxuxh light chains.kappa.free (S) [Mass/Vol]300.9 mg/LHigh3.3-19.4CProMedica Flower HospitalComselect specialty hospital-[facility]ontiac on above:Order Comment: Specimen Type: BLOOD SPECIMEN Ordering Facility: [facility] Address: [address] [place], [place] [address]Result Comment: Rarely, increased serum free light chains levels may not be detected or accurately quantified due to prozone phenomenon or in high viscosity samples using this immunoturbidimetric assay. Correlation with other laboratory results and clinical findings is recommended. The [place] Free Light Chain was performed using the Binding Site Optilite immunoturbidimetric method. Result obtained with different assay methods or kits cannot be used interchangeably.Performed By: #### KLFRS #### [facility] CLIA [id number] [address] [place] [address] [place] AMERICAImmunoglobulin light chains.kappa/Immunoglobulin light chains.lambda (S) [Mass ratio]12.64High 0.26-1.65[facility] on above:Order Comment: Specimen Type: BLOOD SPECIMEN Ordering Facility: [facility] Address: [address] [place], [place] [address]Performed By: #### KLFRS #### [facility] CLIA [id number] [address] [place] [address] [place] AMERICAImmunoglobulin light chains.lambda.free [Mass/Vol]23.8 mg/LNormal5.7-26.3CProMedica Flower Hospital Comment on above:Order Comment: Specimen Type: BLOOD SPECIMEN Ordering Facility: [facility] Address: [address] [place], [place] [address]Result Comment: Rarely, increased serum free light chains [...] be used interchangeably.Performed By: #### KLFRS #### [facility] CLIA [id number] [address] [place] [address] [place] OF AMERICALaboratory - Chemistry and Chemistry - challengeOrdered By: Nathan Hathaway on 95-04-9921Ipaeziy [Mass/Vol] 3.6 g/dLLow3.9-4.9[facility] CenterALP [Catalytic activity/Vol] 48 U/C07-764HrezhwbcmAdena Regional Medical CenterALT [Catalytic activity/Vol]13 U/L 7-38[facility] CenterAST [Catalytic activity/Vol]22 U/L13-35 [facility] CenterBilirubin [Mass/Vol]0.3 mg/dL0.2-1.3FSelect Medical Specialty Hospital - TrumbullCalcium [Mass/Vol]8.9 mg/dL8.5-10.2FSelect Medical Specialty Hospital - TrumbullChloride [Moles/Vol]106 mmol/P86-577PaofmlosuAdena Regional Medical CenterCO2 [Moles/Vol]24 mmol/L62-61OumsmhgjdAdena Regional Medical CenterCreatinine [Mass/Vol]1.65 mg/dLHigh0.58-0.96[facility] CenterGlucose [Mass/Vol]100 mg/tKKfgz20-38BywikvprrAdena Regional Medical CenterComment on above: The [place] Diabetes Association (ADA) provides guidance for cutoff [...] diabetes.Reference: Standardsof Medical Care in Diabetes 2016, [place] Diabetes Association. Diabetes Care. 2016.39(Suppl 1).Potassium [Moles/Vol]5.3 mmol/LHigh3.7-5.1FSelect Medical Specialty Hospital - TrumbullProtein [Mass/Vol]0.00 g/dL<=0.00[facility] Sodium [Moles/Vol]141 mmol/F917-264CrxmwloqzAdena Regional Medical CenterUrea nitrogen [Mass/Vol]27 mg/dLHigh7-21[facility] CenterNo Panel InformationOrdered By: Nathan Hathaway on 40-90-2761Ckqfkomrzyuums Interpretation [facility] CenterLeuk/Lymph Sign Pathologist (Misc)Reviewed by Dr. Jennifer David [facility] Memorial HospitalMiscellaneous Test 6See commentAdena Regional Medical CenterComment on above:Not Applicable. Miscellaneous Test CommentReviewed by Dr. Jennifer David [facility] Memorial HospitalProtein Electrophoresis InterpretAdena Regional Medical Center Protein Electrophoresis NoteNo definitive M protein is identified on protein electrophoresis.No definitive M protein is identified on protein electrophoresis.[facility] Valley Hospitalerum ImmunofixationAbnormalNo M protein is identified.[facility] CenterPROTEIN ELECTROPHORESIS SERUM (P)on 65-74-0568Zowizes [Mass/Vol]3.33 g/dLLow3.43-5.41Glenbeigh HospitalComselect specialty hospital-[facility]iac on above:Order Comment: Specimen Type: BLOOD SPECIMEN Ordering Facility: [facility] Address: [address] [place], [place] [id number] By: #### 55672-2 #### [facility] CLIA [id number] [address] [place] [address] [place] AMERICAAlpha 1 globulin Elph [Mass/Vol]0.42 g/dLNormal0.18-0.43[facility] on above: Order Comment: Specimen Type: BLOOD SPECIMEN Ordering Facility: [facility] Address: [address] [place], [place] [address]Performed By: #### 56314-0 #### [facility] CLIA [id number] [address] [place] [address] [place] AMERICAAlpha 2 globulin Elph [Mass/Vol]0.86 g/dLNormal0.42-0.98[facility] on above: Order Comment: Specimen Type: BLOOD SPECIMEN Ordering Facility: [facility] Address: [address] [place], [place] [address]Performed By: #### 49571-8 #### [facility] CLIA [id number] [address] [place] [address] [place] AMERICABeta globulin Elph [Mass/Vol]0.53 g/dLLow0.61-1.17[facility] on above:Order Comment: Specimen Type: BLOOD SPECIMEN Ordering Facility: [facility] Address: [address] [place], [place] [address]Performed By: #### 41047-5 #### [facility] CLIA [id number] [address] [place] [address] STATES OF AMERICAGamma globulin Elph [Mass/Vol]0.37 g/dLLow0.53-1.51[facility] on above:Order Comment: Specimen Type: BLOOD SPECIMEN Ordering Facility: [facility] Address: [address] [place], [place] [address]Performed By: #### 83764-8 #### [facility] CLIA [id number] [address] [place] [address] [place] AMERICAINTERPRETATION COMMENT FOR PROTEIN ELECTROPHORESISHypogammaglobulinemia is present, which can be seen in the setting of monoclonal gammopathy. If clinically indicated, monoclonal protein analysis and serum free light chain analysis are suggested to evaluate further for monoclonal gammopathy.NormalOhioHealth Arthur [facility] on above:Order Comment: Specimen Type: BLOOD SPECIMEN Ordering Facility: [facility] Address: [address] [place], [place] [address]Performed By: #### 90528-9 #### [facility] CLIA [id number] [address] [place] [address] [place] AMERICAM-PROTEIN LOCATIONNormal [facility] on above:Order Comment: Specimen Type: BLOOD SPECIMEN Ordering Facility: [facility] Address: [address] [place], [place] [address]Result Comment: Not Applicable. Performed By: #### 43018-2 #### [facility] CLIA [id number] [address] [place] [address] [place] AMERICAProtein Fractions [Interp]No definitive M protein is identified on protein electrophoresis.NormalNo definitive M protein is identified on protein electrophoresis.[facility] on above:Order Comment: Specimen Type: BLOOD SPECIMEN Ordering Facility: [facility] Address: [address] [place], [place] [address]Performed By: #### 21726-5 #### [facility] CLIA [id number] [address] [place] [address] [place] AMERICAProtein.monoclonal Elph [Mass/Vol]0.00 g/dLNormal<=0.00[facility] on above:Order Comment: Specimen Type: BLOOD SPECIMEN Ordering Facility: [facility] Address: [address] [place], [place] [address]Performed By: #### 89030-0 #### [facility] CLIA [id number] [address] [place] [address] [place] OF AMERICASPE STAFF REVIEWReviewed by Dr. Jennifer David MDNoalCKettering Health Greene Memorial on above:Order Comment: Specimen Type: BLOOD SPECIMEN [facility]ing Facility: [facility] Address: [address] [place], [place] [address]Performed By: #### 61616-6 #### [facility] CLIA [id number] [address] [place] [address] [place] OF AMERICAProt SerPl-mCncon 07-08-2025 Protein [Mass/Vol]5.5 g/dLLow6.3-8.0Glenbeigh HospitalComment on above: Order Comment: Specimen Type: BLOOD SPECIMEN Ordering Facility: [facility] Address: [address] [place], [place] [address]Performed By: #### 2885-2 #### [facility] CLIA [id number] [address] [place] [address] [place] AMERICAProtein [Mass/volume] in Serum or PlasmaOrdered By: Fanny Bedoya on 31-07-9145Okkjpzc [Mass/Vol]5.5 g/dL Low6.3-8.0[facility] Valley Hospitalerum or plasma alpha 1 globulin measurement by electrophoresis (mass/volume)Ordered By: Nathan Hathaway on 10-40-5630Aidjk 1 globulin Elph [Mass/Vol]0.42 g/dL0.18-0.43[facility] Valley Hospitalerum or plasma alpha 2 globulin measurement by electrophoresis (mass/volume)Ordered By: Nathan Hathaway on 46-19-5079Dqnxc 2 globulin Elph [Mass/Vol]0.86 g/dL0.42-0.98[facility] Valley Hospitalerum or plasma anion gap determinationOrdered By: Nathan Hathaway on 21-83-6562Olfds gap [Moles/Vol]11 mmol/L8-15[facility] Valley Hospitalerum or plasma beta globulin measurement by electrophoresis (mass/volume)Ordered By: Nathan Hathaway on 71-61-3188Dzgc globulin Elph [Mass/Vol]0.53 g/dLLow0.61-1.17[facility] Valley Hospitalerum or plasma gamma globulin measurement by electrophoresis (mass/volume)Ordered By: Nathan Hathaway on 15-04-1573Wixlv globulin Elph [Mass/Vol]0.37 g/dLLow0.53-1.51[facility] CNPNon 37-50-3768PGQVJuikobutx (HEMASA) LASHAUN JOAQUIN ([id number]) 1940 F Date Time Provider Department 07/06/25 [...] Date Reviewed: 11/07/2023 Reviewed by: Paolo Casillas APRN.COLOR PRINT INSPECTOR - Fully Assessed Reason for Visit: Lab Orders [1688] Cmt: nt Primary Visit Diagnosis:Abnormal SPEP [R77.8] Order(s):COMPLETE BLOOD COUNT AND DIFFERENTIAL [SQCBCDIF] Order #: [id number] FUTURE COMPREHENSIVE METABOLIC PANEL [SQCMP] Order #: [id number] FUTURE PROTEIN ELECTROPHORESIS SERUM W/INTERP [SQSEPG] Order #: [id number] FUTURE MONOCLONAL PROTEIN, SERUM (BLOOD) [SQSERMPA] Order #: [id number] FUTURE Prescriptions as of 07/06/2025 - carvedilol [...] (None) Encounter Status:Closed by FANNY BEDOYA on 07/06/25NoKettering Health HamiltonMicroalbumin [Mass/volume] in UrineOrdered By: Nathan Hathaway on 89-49-6564Fkzvbfj DL <= 20 mg/L (U) [Mass/Vol]20.1 mg/dL<=30.0[facility] CenterNo Panel InformationOrdered By: Nathan Hathaway on 18-69-7113Zyvgc Random Ievgkslhhk32.52 mg/dL20.00-300.00[facility] CenterUrine microalbumin/creatinine mass ratioOrdered By: Nathan Hathaway on 06-24-2025 Albumin/Creatinine DL <= 20 mg/L (U) [Mass ratio]237.8 mg/gHigh0.0-29.9[facility] CenterComment on above:NO MICROALBUMINURIA 0-29 MG/GCLINICAL MICROALBUMINURIA 30-300 MG/GMACROALBUMINURIA >300 MG/GAlbumin [Mass/volume] in Serum or PlasmaOrdered By: Nathan Hathaway on 80-61-2629Pfwuwxs [Mass/Vol]3.2 g/dL 2.9-4.4FSelect Medical Specialty Hospital - TrumbullBasophils Auto (Bld) [#/Vol]Ordered By: Nathan Hathaway on 28-32-5685Xvkxfddqr (Bld) [#/Vol]0.0 10 3/uL0.0-0.1FSelect Medical Specialty Hospital - TrumbullBasophils/100 WBC Auto (Bld)Ordered By: Nathan Hathaway on 40-04-7434Dugzbrtxr/100 WBC (Bld)0.7 %0.2-2.0[facility] Cholesterol in LDL Calc [Mass/Vol]Ordered By: Nathan Hathaway on 06-23-2025 Cholesterol in LDL [Mass/Vol]60.2 mg/dLAdena Regional Medical CenterComment on above:<100 mg/dl ITQZRBX601-182 mg/dl NEAR OR ABOVE QTAKJGM282-258 mg/dl BORDERLINE FORP811-750 mg/dl HIGH>190 mg/dl VERY HIGHCholesterol in VLDL Calc [Mass/Vol]Ordered By: Nathan Hathaway on 70-45-2407Oiiqxfpssbq in VLDL [Mass/Vol] 17.8 mg/dLAdena Regional Medical CenterEosinophils/100 WBC Auto (Bld)Ordered By: Nathan Hathaway on 97-51-6037Pfgzicwrbnk/100 WBC (Bld)2.7 %0.9-7.0[facility] CenterErythrocyte distribution width Auto (RBC) [Ratio]Ordered By: Nathan Hathaway on 36-23-3545Wvpxfjofptr distribution width (RBC) [Ratio]13.8 %11.0-15.0[facility] CenterGlobulin Calc (S) [Mass/Vol]Ordered By: Nathan Hathaway on 18-83-0815Xpndqqfj (S) [Mass/Vol]3.3 g/dLAdena Regional Medical CenterGlomerular filtration rate (GFR) estimation in non- AmericanOrdered By: Nathan Hathaway on 96-95-7330KAY/1.73 sq M.predicted among non-blacks MDRD (S/P/Bld) [Vol rate/Area]35 mL/min/{1.73_m2}Low>=60 mL/min/1.73m 2FSelect Medical Specialty Hospital - TrumbullHematocrit Auto (Bld) [Volume fraction]Ordered By: Nathan Hathaway on 50-11-2133Otakbrysij (Bld) [Volume fraction]28.3 %Low 36.0-48.0[facility] CenterHemoglobin [Mass/volume] in Blood Ordered By: Nathan Hathaway on 38-04-5733Lucstycgec (Bld) [Mass/Vol]9.3 g/dLLow 12.0-16.0[facility] CenterIgA [Mass/volume] in Serum or Plasma Ordered By: Nathan Hathaway on 23-99-6143PwZ [Mass/Vol]62 mg/uJMyzexkxp38-696 [facility] CenterIgG [Mass/volume] in Serum or PlasmaOrdered By: Nathan Hathaway on 41-55-2907XqN [Mass/Vol]330 mg/eSHjhvxgsl969-3524AqtiiywpmAdena Regional Medical CenterIgM [Mass/volume] in Serum or PlasmaOrdered By: Nathan Hathaway on 54-95-8506SqL [Mass/Vol]325 mg/qPLvzpgqwp68-037WeigtkwjvAdena Regional Medical CenterImmunoglobulin light chains.kappa.free [Mass/volume] in Serum Ordered By: Nathan Hathaway on 20-36-2066Xckvvkeptzncay light chains.kappa.free (S) [Mass/Vol]224.6 mg/LAbnormal3.3-19.4FSelect Medical Specialty Hospital - Trumbull Immunoglobulin light chains.kappa.free/Immunoglobulin light chains.lambda.free [MassOrdered By: Nathan Hathaway on 14-19-6513Kdbptbtbcikvmc light chains.kappa.free/Immunoglobulin light chains.lambda.free (S) [Mass ratio]10.59 Abnormal0.26-1.65[facility] CenterComment on above:Performed at: [address] [id number] Director: Carlos Witt PhD, Phone: [phone] light chains.lambda.free [Mass/volume] in Serum or PlasmaOrdered By: Nathan Hathaway on 06-23-2025 Immunoglobulin light chains.lambda.free [Mass/Vol]21.2 mg/L5.7-26.3FSelect Medical Specialty Hospital - TrumbullIron binding capacity [Mass/volume] in Serum or Plasma Ordered By: Nathan Hathaway on 10-28-1655Maqj binding capacity [Mass/Vol]245.0 ug/kWPnp935.0-450.0[facility] CenterIron saturation [Mass Fraction] in Serum or PlasmaOrdered By: Nathan Hathaway on 55-66-2969Naek saturation [Mass fraction]14.3 %[facility] CenterLaboratory - Chemistry and Chemistry - challengeOrdered By: Nathan Hathaway on 52-66-9070PSY [Catalytic activity/Vol]47 U/U04-604YvnvqeojrAdena Regional Medical CenterALT [Catalytic activity/Vol]18 U/Z00-02FudlhxfgdAdena Regional Medical CenterAST [Catalytic activity/Vol]18 U/H84-34NsqkjzsigAdena Regional Medical CenterBilirubin [Mass/Vol]0.5 mg/dL0.2-1.0[facility] CenterCalcium [Mass/Vol]8.9 mg/dL8.5-10.1FSelect Medical Specialty Hospital - TrumbullChloride [Moles/Vol]104 mmol/L 98-107[facility] CenterCholesterol [Mass/Vol]123 mg/dL<=200 [facility] CenterCholesterol in HDL [Mass/Vol]45 mg/dL40-60 [facility] CenterComment on above:> or =60 mg/dl - LOW CARDIOVASCULAR RISK<40 mg/dl - HIGH CARDIOVASCULAR RISKCO2 [Moles/Vol]30.2 mmol/L21.0-32.0[facility] CenterCobalamin (Vitamin B12) [Mass/Vol]1089 pg/cA199-6143BpfbbzcxeAdena Regional Medical CenterComment on above: Performed at: - [facility] [id number] Director: Carlos Witt PhD, Phone: [phone] [Mass/Vol]1.45 mg/dLHigh0.55-1.02[facility] CenterFerritin [Mass/Vol]176.0 ng/mL8.0-252.0[facility] CenterFree T4 [Mass/Vol]0.97 ng/dL 0.76-1.46[facility] CenterGFR/1.73 sq M.predicted MDRD (S/P/Bld) [Vol rate/Area]42 mL/min/{1.73_m2}Low>=60 mL/min/1.73m 2FSelect Medical Specialty Hospital - TrumbullGlucose [Mass/Vol]94 mg/wC82-617ClkwujadfAdena Regional Medical Center Iron [Mass/Vol]35.0 ug/dLLow50.0-170.0[facility] CenterPotassium [Moles/Vol]4.3 mmol/L3.5-5.1FSelect Medical Specialty Hospital - TrumbullProtein [Mass/Vol] 0.2 g/dLAbnormalNot ObservedAdena Regional Medical CenterProtein [Mass/Vol] 6.5 g/dL6.4-8.2FOhioHealth Marion General Hospitalodium [Moles/Vol]142 mmol/L 136-145[facility] CenterTriglyceride [Mass/Vol]89 mg/dL<=150 [facility] CenterTSH Qn5.101 m[IU]/LHigh0.358-3.740[facility] CenterUrea nitrogen [Mass/Vol]22.0 mg/dLHigh7.0-18.0[facility] CenterUrea nitrogen/Creatinine [Mass ratio]15.2 mg/mgAdena Regional Medical CenterLaboratory - Hematology and Cell countsOrdered By: Nathan Hathaway on 97-98-2832Aljalqga granulocytes/100 WBC (Bld)0.4 %0.0-0.5 [facility] CenterLeukocytes [#/volume] corrected for nucleated erythrocytes in Blood by Automated counOrdered By: Nathan Hathaway on 06-23-2025 WBC corrected for nucl RBC Auto (Bld) [#/Vol]5.6 10 3/uL4.0-11.0[facility] CenterLymphocytes Auto (Bld) [#/Vol]Ordered By: Nathan Hathaway on 31-46-4688Opdvugkhjbs (Bld) [#/Vol]0.8 10 3/uLLow1.2-3.8[facility] CenterLymphocytes/100 WBC Auto (Bld)Ordered By: Nathan Hathaway on 83-29-1037Odnnspgjegy/100 WBC (Bld)14.4 %Low20.5-60.0[facility] CenterH Auto (RBC) [Entitic mass]Ordered By: Nathan Hathaway on 03-77-5132OVA (RBC) [Entitic mass]29.0 pg26.7-34.0[facility] CenterMCHC Auto (RBC) [Mass/Vol]Ordered By: Nathan Hathaway on 85-50-8890NTAU (RBC) [Mass/Vol]32.9 g/dL29.9-35.2FSelect Medical Specialty Hospital - TrumbullMCV Auto (RBC) [Entitic vol] Ordered By: Nathan Hathaway on 54-63-2103LXD (RBC) [Entitic vol]88.2 fL81.0-99.0 [facility] CenterMonocytes Auto (Bld) [#/Vol]Ordered By: Nathan Hathaway on 78-71-1425Nkmljrclz (Bld) [#/Vol]0.5 10 3/uL0.3-0.8[facility] CenterMonocytes/100 WBC Auto (Bld)Ordered By: Nathan Hathaway on 00-51-2025Jhecdcnmt/100 WBC (Bld)8.7 %1.7-12.0[facility] Neutrophils Auto (Bld) [#/Vol]Ordered By: Nathan Hathaway on 15-22-5829Qicjtoyokcf (Bld) [#/Vol]4.1 10 3/uL1.4-6.5FSelect Medical Specialty Hospital - TrumbullNeutrophils/100 WBC Auto (Bld)Ordered By: Nathan Hathaway on 13-45-7310Aixbqlgmcsg/100 WBC (Bld) 73.1 %43.0-75.0[facility] CenterNo Panel InformationOrdered By: Nathan Hathaway on 33-44-2539Zflqnmilvzm # (Auto)0.2 10 3/uL0.0-0.7FSelect Medical Specialty Hospital - TrumbullFolate17.90 ng/mL8.60-58.90[facility] CenterImmature Granulocyte # (Auto)0.02 10 3/uL0.00-0.03[facility] CenterProtein Electrophoresis NoteComment.[facility] CenterComment on above:Protein electrophoresis scan will follow via computer,mail, or woods overseer delivery.Platelet mean volume Auto (Bld) [Entitic vol] Ordered By: Nathan Hathaway on 39-67-1724Bvdtkiko mean volume (Bld) [Entitic vol] 10.2 fL9.5-13.5FSelect Medical Specialty Hospital - TrumbullPlatelets Auto (Bld) [#/Vol] Ordered By: Nathan Hathaway on 81-50-1136Bmnfjewzd (Bld) [#/Vol]270 10 3/hG247-062 [facility] CenterProtein [Mass/volume] in Serum or PlasmaOrdered By: Nathan Hathaway on 16-81-9346Xmuridj [Mass/Vol]5.7 g/dLAbnormal6.0-8.5 [facility] CenterRBC Auto (Bld) [#/Vol]Ordered By: Nathan Hathaway on 75-47-9316NTB (Bld) [#/Vol]3.21 10 6/uLLow4.20-5.40Ohio Valley Hospitalerum globulin measurement (mass/volume)Ordered By: Nathan Hathaway on 13-17-5680Pgkaucmc (S) [Mass/Vol]2.5 g/dL2.2-3.9[facility] Valley Hospitalerum or plasma albumin/globulin mass ratioOrdered By: Nathan Hathaway on 54-42-4797Zqgrvpt/Globulin [Mass ratio]1.0 {ratio}[facility] CenterAlbumin/Globulin [Mass ratio]1.3 {ratio}0.7-1.7FOhioHealth Marion General Hospitalerum or plasma alpha 1 globulin measurement by electrophoresis (mass/volume)Ordered By: Nathan Hathaway on 24-45-9523Cadzy 1 globulin Elph [Mass/Vol]0.3 g/dL0.0-0.4FOhioHealth Marion General Hospitalerum or plasma alpha 2 globulin measurement by electrophoresis (mass/volume)Ordered By: Nathan Hathaway 15-30-9036Tywsq 2 globulin Elph [Mass/Vol]1.0 g/dL0.4-1.0[facility] Valley Hospitalerum or plasma anion gap determinationOrdered By: Nathan Hathaway on 75-11-5435Ratdd gap [Moles/Vol]12.1 mmol/LFSelect Medical Specialty Hospital - Trumbull Serum or plasma beta globulin measurement by electrophoresis (mass/volume) Ordered By: Nathan Hathaway on 39-91-9287Wulk globulin Elph [Mass/Vol]0.7 g/dL 0.7-1.3FOhioHealth Marion General Hospitalerum or plasma gamma globulin measurement by electrophoresis (mass/volume)Ordered By: Nathan Hathaway on 08-36-1892Xaxfl globulin Elph [Mass/Vol]0.5 g/dL0.4-1.8[facility] Valley Hospitalerum or plasma immunoelectrophoresis interpretationOrdered By: Nathan Hathaway on 45-29-9390Tlcforrbpjffff IEP [Interp]CommentAbnormal.[facility] CenterComment on above:Immunofixation shows IgM monoclonal protein with kappalight chain specificity.Serum or plasma total cholesterol/high density lipoprotein (HDL) cholesterol mass ratOrdered By: Nathan Hathaway on 45-42-8327Tcxafksohii.total/Cholesterol in HDL [Mass ratio]2.7 {ratio}[facility] CenterComment on above:3.3 - 4.4 LOW RISK4.4 - 7.1 AVERAGE RISK7.1 - 11.0 MODERATE RISK>11.0 HIGH RISKEstimated glomerular filtration rate (GFR) non- Americanon 64-26-1192VGJ/1.73 sq M.predicted among non-blacks MDRD (S/P/Bld) [Vol rate/Area]Estimated glomerular filtration rate (GFR) non- AmericanLow>=60 mL/min/1.73m [address] [place], [place] [address]GFR/1.73 sq M.predicted among non-blacks MDRD (S/P/Bld) [Vol rate/Area]31 mL/min/{1.73_m2}Low>=60 mL/min/1.73m [address] [place] [address] Laboratory - Chemistry and Chemistry - challengeon 56-88-2309Dnojyww [Mass/Vol] 8.9 mg/dL8.5-10.1FSelect Medical Specialty Hospital - TrumbullChloride [Moles/Vol]105 mmol/L 98-107[facility] CenterCO2 [Moles/Vol]30.7 mmol/L21.0-32.0 [facility] CenterCreatinine [Mass/Vol]1.60 mg/dLHigh0.55-1.02 [facility] CenterGFR/1.73 sq M.predicted MDRD (S/P/Bld) [Vol rate/Area]37 mL/min/{1.73_m2}Low>=60 mL/min/1.73m 2FSelect Medical Specialty Hospital - TrumbullGlucose [Mass/Vol]112 mg/ySKubr43-909TsghwelitAdena Regional Medical Center Potassium [Moles/Vol]4.4 mmol/L3.5-5.1FOhioHealth Marion General Hospitalodium [Moles/Vol]145 mmol/I701-055KfgadvlobAdena Regional Medical CenterTSH Qn3.657 m[IU]/L 0.358-3.740[facility] CenterUrea nitrogen [Mass/Vol]33.0 mg/dL High7.0-18.0[facility] CenterUrea nitrogen/Creatinine [Mass ratio]20.6 mg/mgOhio Valley Hospitalerum or plasma anion gap determinationon 39-00-2932Hgojy gap [Moles/Vol]Serum or plasma anion gap determinationAdena Regional Medical CenterAnion gap [Moles/Vol]13.7 mmol/L [facility] CenterTRANSTHORACIC ECHO (TTE) COMPLETEon 03-17-2025 TRANSTHORACIC ECHO (TTE) [address], [address] [place] [address] TRANSTHORACIC ECHOCARDIOGRAM REPORT Patient Name: LASHAUNGonzález Doherty Physician: [id number] Bryce Guy MD, [facility] Study Date: 03/17/2025 Ordering Provider: [id number] HOLDEN ROSADO MRN/PID: [id number] Fellow: Nurse: Date of /Age: 11 1940 Box Person: Nicolasa taylor RDCS, RVT Gender Assigned at F Additional Staff: : Height: 165.10 cm Admit Date: Weight: 90.72 kg Admission Status: BSA / BMI: 1.98 m2 / 33.28 Department Location: [place] kg/m2 [facility] Blood Pressure: 120 /64 mmHg Study Type: TRANSTHORACIC ECHO (TTE) COMPLETE Diagnosis/ICD: Essential (primary) hypertension-I10; Palpitations-R00.2 Indication: CAD, PTCA-2022, Edema, Hyperlipidemia, Former Smoker CPT Codes: Echo Complete w Full Doppler-48079 Study Detail: The following Echo studies were [...] RV (more content not included)...[facility] HospitalAcanthocytes [Presence] in Blood by Light microscopyOrdered By: Jorge L Cruz on 69-44-2584Ygttffsnsmpu LM Ql (Bld)Acanthocytes [Presence] in Blood by Light microscopyAdena Regional Medical CenterAlanine aminotransferase [Enzymatic activity/volume] in Serum or PlasmaOrdered By: Jorge L Cruz on 40-92-7641ESH [Catalytic activity/Vol]Alanine aminotransferase [Enzymatic activity/volume] in Serum or Plasma7-52[facility] CenterAlbumin [Mass/volume] in Serum or Plasma by Bromocresol green (BCG) dye binding metho Ordered By: Jorge L Cruz on 94-30-6220Pddgmfi BCG dye [Mass/Vol]Albumin [Mass/volume] in Serum or Plasma by Bromocresol green (BCG) dye binding metho 3.5-5.7FSelect Medical Specialty Hospital - TrumbullAlkaline phosphatase [Enzymatic activity/volume] in Serum or PlasmaOrdered By: Jorge L Cruz on 02-12-2025 ALP [Catalytic activity/Vol]Alkaline phosphatase [Enzymatic activity/volume] in Serum or Twumzk82-535EycjinmokAdena Regional Medical CenterAnisocytosis LM Ql (Bld) Ordered By: Jorge L Cruz on 52-10-7507Mmqjyftmcfde Ql (Bld)Anisocytosis [Presence] in Blood by Light microscopyAdena Regional Medical Center Aspartate aminotransferase [Enzymatic activity/volume] in Serum or PlasmaOrdered By: Jorge L Cruz on 38-16-9807DGN [Catalytic activity/Vol]Aspartate aminotransferase [Enzymatic activity/volume] in Serum or Oxmsez42-23WctswcicjAdena Regional Medical CenterB-Type Natriuretic Peptideon 62-33-4271Knxxhxhrwun peptide B (Bld) [Mass/Vol]246.0 pg/mLHigh5-100[facility] Comment on above:Result Comment: PERFORMED BY: [facility] [address] [facility] [place] [address] PATHOLOGIST PLUGGING MACHINE OPERATOR RAMEZ MONTES M.D.Performed By: #### SCAN CBC, CK, HS TROP, BNP, PT, PTT ####[facility] Basophils Auto (Bld) [#/Vol]Ordered By: Jorge L Cruz on 17-80-3674Bgpeazluy (Bld) [#/Vol]Automated basophil count0.0-0.2FSelect Medical Specialty Hospital - Trumbull Basophils/100 WBC Auto (Bld)Ordered By: Jorge L Cruz on 02-12-2025 Basophils/100 WBC (Bld)Automated basophil %.[facility] Bilirubin.total [Mass/volume] in Serum or PlasmaOrdered By: Jorge L Cruz on 26-27-8886Rfyjlhayy [Mass/Vol]Bilirubin.total [Mass/volume] in Serum or Plasma 0.3-1.0[facility] CenterCalcium [Mass/volume] in Serum or Plasma Ordered By: Jorge L Cruz on 93-09-9089Rwdufcd [Mass/Vol]Calcium [Mass/volume] in Serum or Plasma8.6-10.3FSelect Medical Specialty Hospital - TrumbullCarbon dioxide, total [Moles/volume] in Serum or PlasmaOrdered By: Jorge L Cruz on 47-22-5478RL3 [Moles/Vol]Carbon dioxide, total [Moles/volume] in Serum or Jfjgjb03.0-31.0[facility] CenterChloride [Moles/volume] in Serum or PlasmaOrdered By: Jorge L Cruz on 68-81-7069Goxgmsxj [Moles/Vol] Chloride [Moles/volume] in Serum or Yttjcg66-088PrcizcjyxAdena Regional Medical CenterComprehensive Metabolic Panelon 96-69-7835Sxzxmrw [Mass/Vol]3.8 g/dLNormal 3.5-5.7The [facility] Physician GroupComment on above:Performed By: #### TSH3, CMP, MG #### [facility] [address] [place] [address] USAAlbumin/Globulin [Mass ratio]1.6 {ratio}NormalThe [facility] Anson Physician GroupComment on above:Performed By: #### TSH3, CMP, MG #### [facility] [address] [place] [address] USAALP [Catalytic activity/Vol]43 U/XGkuoef79-184Zqt [facility] Physician GroupComment on above:Performed By: #### TSH3, CMP, MG #### [facility] [address] [place] [address] USAALT [Catalytic activity/Vol]14 U/LNormal7-52The [facility] Physician GroupComment on above:Performed By: #### TSH3, CMP, MG #### [facility] [address] [place] [id number] USAAnion gap [Moles/Vol]11.4 mmol/LNormal6.0-15.0The [facility] Physician GroupComment on above:Performed By: #### TSH3, CMP, MG #### [facility] [address] [place] [id number] USAAST [Catalytic activity/Vol]19 U/FOimdwu47-43Jru [facility] Physician GroupComment on above:Performed By: #### TSH3, CMP, MG #### [facility] [address] [place] [id number] USABilirubin [Mass/Vol]0.4 mg/dLNormal0.3-1.0The [facility] Physician GroupComment on above:Performed By: #### TSH3, CMP, MG #### [facility] [address] [place] [address] USACalcium [Mass/Vol]9.1 mg/dLNormal8.6-10.3The [facility] Physician GroupComment on above:Performed By: #### TSH3, CMP, MG #### [facility] [address] [place] [address] USAChloride [Moles/Vol]107 mmol/AQvohis04-875Vud [facility] Physician GroupComment on above:Performed By: #### TSH3, CMP, MG #### [facility] [address] [place] [address] USACO2 [Moles/Vol]27.7 mmol/SEjhymz90.0-31.0The [facility] Physician GroupComment on above:Performed By: #### TSH3, CMP, MG #### [facility] [address] [place] [address] USACreatinine [Mass/Vol]1.28 mg/dLHigh0.60-1.20The [facility] Physician GroupComment on above:Performed By: #### TSH3, CMP, MG #### [facility] [address] [place] [address] USACreatinine Clr Calc Cdgykcjy73.75NoAtrium Health Steele Creek Physician GroupComment on above:Performed By: #### TSH3, CMP, MG #### [facility] [address] [place] [address] USAEstimated GFR41.827 mL/MinNoAtrium Health Steele Creek Physician GroupComment on above:Performed By: #### TSH3, CMP, MG #### [facility] [address] [place] [address] USAGlobulin (S) [Mass/Vol]2.4 g/dLNoAtrium Health Steele Creek Physician GroupComment on above:Performed By: #### TSH3, CMP, MG #### [facility] [address] [place] [address] USAGlucose [Mass/Vol]102 mg/mMXoyj30-965Lsb [facility] Physician GroupComment on above:Result Comment: Random Glucose Reference Range is dependent on time and content of last meal. Glucose of more than 200 mg/dL in a nonstressed, ambulatory subject supports the diagnosis of Diabetes Mellitus. ADA recommended reference rangePerformed By: #### TSH3, CMP, MG #### [facility] [address] [place] [address] USAPotassium [Moles/Vol]4.1 mmol/LNormal3.5-5.1The [facility] Physician GroupComment on above:Performed By: #### TSH3, CMP, MG #### [facility] [address] [place] [address] USAProtein [Mass/Vol]6.2 g/dLLow6.4-8.9The [facility] Physician GroupComment on above:Performed By: #### TSH3, CMP, MG #### [facility] [address] [place] [address] USASodium [Moles/Vol]142 mmol/SAxdxua869-651Tei [facility] Physician GroupComment on above:Performed By: #### TSH3, CMP, MG #### [facility] [address] [place] [address] USAUrea nitrogen [Mass/Vol]28 mg/dLHigh7-25The [facility] Physician GroupComment on above:Performed By: #### TSH3, CMP, MG #### [facility] [address] [place] [address] USACreatine Kinaseon 66-57-5477GW [Catalytic activity/Vol]35 U/IRugrpo07-279Zqc [facility] Physician GroupComment on above:Performed By: #### SCAN CBC, CK, HS TROP, BNP, PT, PTT ####[facility] [address] [place] [id number] USACreatine kinase [Enzymatic activity/volume] in Serum or PlasmaOrdered By: Jorge L Cruz on 98-65-3448MY [Catalytic activity/Vol] Creatine kinase [Enzymatic activity/volume] in Serum or Jxnpso50-682FzixtypvpAdena Regional Medical CenterCreatinine [Mass/volume] in Serum or PlasmaOrdered By: Jorge L Cruz on 40-98-1973Ncctqomivo [Mass/Vol]Creatinine [Mass/volume] in Serum or PlasmaHigh0.60-1.20[facility] CenterECG 12 lead ECGon 12-74-1130CWK 12 lead ECGDUNLAP MEMORIAL [place] [address] Electrocardiograph Report Signed Patient: Lashaun Joaquin MR#: [id number] : 1940 Acct:[id number] Age/Sex: 84 / F ADM Date: 02/12/25 Loc: ER Room: Type: [facility] ER Attending Dr: Ordering Provider: Jorge L [...] rhythm Confirmed by Jorge L CRUZ DO ([id number]) on 02/12/2025 10:52:00 AM Referred By: Electronically Signed By: Jorge L CRUZ DO Transcribed By: MUS Signed By Jorge L Cruz DO 0 02/12/[address] [place] [address] Physician GroupEosinophils Auto (Bld) [#/Vol] Ordered By: Jorge L Cruz on 22-73-0899Mjcruwtiqre (Bld) [#/Vol]Automated eosinophil count0.0-0.45[facility] CenterEosinophils/100 WBC Auto (Bld)Ordered By: Jorge L Cruz on 91-92-3974Xmjbkzytqpr/100 WBC (Bld) Automated eosinophil %.[facility] CenterErythrocyte distribution width Auto (RBC) [Ratio]Ordered By: Jorge L Cruz on 81-08-1732Wmgpyusaypc distribution width (RBC) [Ratio]Erythrocyte distribution width [Ratio] by Automated count11.9-15.3FSelect Medical Specialty Hospital - TrumbullErythrocyte morphology finding [Identifier] in BloodOrdered By: Jorge L Cruz on 37-94-9178PVO morphology finding Nom (Bld)RBC morphologyAdena Regional Medical Center Globulin Calc (S) [Mass/Vol]Ordered By: Jorge L Cruz on 42-21-2513Ygrafdfj (S) [Mass/Vol]Serum globulin measurement by calculation (mass/volume)[facility] CenterGlucose [Mass/volume] in Serum or PlasmaOrdered By: Jorge L Cruz on 24-66-1501Wbwbnpb [Mass/Vol]Glucose [Mass/volume] in Serum or SoorfoFzhp40-453YfumrsaviAdena Regional Medical CenterComment on above:ADA recommended reference rangeRandom Glucose Reference Range is dependent on time and content of last meal. Glucose of more than 200 mg/dL in a nonstressed, ambulatory subject supports the diagnosisof Diabetes Mellitus.Hematocrit Auto (Bld) [Volume fraction]Ordered By: Jorge L Cruz on 26-13-5776Eezzsdtffb (Bld) [Volume fraction]Hematocrit [Volume Fraction] of Blood by Automated count Low34.0-46.4FSelect Medical Specialty Hospital - TrumbullHemoglobin [Mass/volume] in Blood Ordered By: Jorge L Cruz on 12-95-9714Urxibvznsd (Bld) [Mass/Vol]Hemoglobin [Mass/volume] in ZobjgIwj32.8-15.4FSelect Medical Specialty Hospital - TrumbullINR in Platelet poor plasma by Coagulation assayOrdered By: Jorge L Cruz on 59-55-4898KBL Coag (PPP) [Relative time]INR in Platelet poor plasma by Coagulation assayAdena Regional Medical CenterComment on above:INR Therapeutic Range [...] Automated counOrdered By: Jorge L Cruz on 46-03-1842ALI corrected for nucl RBC Auto (Bld) [#/Vol]Leukocytes [#/volume] corrected for nucleated erythrocytes in Blood by Automated coun3.8-11.6FSelect Medical Specialty Hospital - TrumbullLymphocytes Auto (Bld) [#/Vol]Ordered By: Jorge L Cruz on 85-46-0526Qkhqjmfdnjw (Bld) [#/Vol]Lymphocytes [#/volume] in Blood by Automated countLow1.00-4.8[facility] CenterLymphocytes/100 WBC Auto (Bld)Ordered By: Jorge L Cruz on 69-70-7695Xlohjtsdclq/100 WBC (Bld)Lymphocytes/100 leukocytes in Blood by Automated count.[facility] CenterH Auto (RBC) [Entitic mass]Ordered By: Jorge L Cruz on 41-02-9354WOX (RBC) [Entitic mass]MCH [Entitic mass] by Automated count24.7-34.3FSelect Medical Specialty Hospital - TrumbullMCHC Auto (RBC) [Mass/Vol]Ordered By: Jorge L Cruz on 29-17-0815GURK (RBC) [Mass/Vol]MCHC [Mass/volume] by Automated count32.0-35.0[facility] Medical CenterV Auto (RBC) [Entitic vol]Ordered By: Jorge L Cruz on 71-04-8633FEL (RBC) [Entitic vol]MCV [Entitic volume] by Automated uvjtn96-256 [facility] CenterMagnesiumon 88-06-9486Mkcwibxde [Mass/Vol]2.3 mg/dLNormal1.9-2.7The [facility] Physician GroupComment on above:Performed By: #### TSH3, CMP, MG #### [place] [address] USAMagnesium [Mass/volume] in Serum or PlasmaOrdered By: Jorge L Cruz on 63-62-9627Gezxsygph [Mass/Vol]Magnesium [Mass/volume] in Serum or Plasma1.9-2.7FSelect Medical Specialty Hospital - TrumbullMicrocytes LM Ql (Bld) Ordered By: Jorge L Cruz on 10-52-6108Yoruvuvoeh Ql (Bld)Microcytes [Presence] in Blood by Light microscopyAdena Regional Medical CenterMonocyte distribution width [Entitic volume] in Blood by AutomatedOrdered By: Jorge L Cruz on 48-09-1515Csdoopbd distribution width Auto (Bld) [Entitic vol] Monocyte distribution width [Entitic volume] in Blood by AutomatedHigh0.00-20.00 [facility] CenterComment on above:For adults in ED, MDW > 20.0 may be associated with a higher risk of sepsis during the first 12 hrs of hospital admissionMonocytes Auto (Bld) [#/Vol]Ordered By: Jorge L Cruz on 15-74-6333Izgslrxek (Bld) [#/Vol]Automated blood monocyte count0.0-0.8[facility] CenterMonocytes/100 WBC Auto (Bld)Ordered By: Jorge L Cruz on 26-93-1647Npplbkhks/100 WBC (Bld)Automated monocyte %.[facility] CenterNatriuretic peptide B [Mass/Vol]Ordered By: Joreg L Cruz on 00-82-3853Euhdcxpmleb peptide B (Bld) [Mass/Vol]BNP ser/plasHigh5-100[facility] CenterNeutrophils Auto (Bld) [#/Vol]Ordered By: Jorge L Cruz on 75-27-5232Suyhylegwhn (Bld) [#/Vol]Neutrophils [#/volume] in Blood by Automated count1.8-7.7FSelect Medical Specialty Hospital - TrumbullNeutrophils/100 WBC Auto (Bld)Ordered By: Jorge L Cruz on 22-10-2401Kfmvakkcmnf/100 WBC (Bld) Automated neutrophil %.[facility] CenterNo Panel Information Ordered By: Jorge L Cruz on 90-91-0288Smhaorlwf GFR (CKD-EPI)41.827 mL/Min [facility] CenterPharmacy Creatinine Clearance (Chem37.75 [facility] CenterNucleated erythrocytes [Presence] in Blood by Automated countOrdered By: Jorge L Cruz on 48-32-3310Crepajcgz RBC Auto Ql (Bld)Nucleated erythrocytes [Presence] in Blood by Automated count0-0.5FSelect Medical Specialty Hospital - TrumbullOvalocytes [Presence] in Blood by Light microscopy Ordered By: Jorge L Cruz on 48-71-2864Yyevtiiagf LM Ql (Bld)Ovalocyte detectionAdena Regional Medical CenterPartial Thromboplastin Timeon 26-32-2748cKCA Coag (Bld) [Time]29.8 hXctqle02.1-36.5The [facility] Physician GroupComment on above:Result Comment: A hematocrit value greater than 55% may lead to inaccurate results in coagulation testing. Patients having hematocrit values >55% require a special collection tube for coagulation studies. Please contact the laboratory at [phone] for redraw instructions. PERFORMED BY: [facility] [address] [place] [id number] PATHOLOGIST PLUGGING MACHINE OPERATOR RAMEZ MONTES M.D.Performed By: #### SCAN CBC, CK, HS TROP, BNP, PT, PTT ####[facility] [address] [place] [id number] [facility] Platelet adequacy [Presence] in Blood by Light microscopyOrdered By: Jorge L Cruz on 13-83-5123Iekdtyscp LM Ql (Bld)Platelet adequacy [Presence] in Blood by Light microscopyNormalAdena Regional Medical CenterPlatelet mean volume Auto (Bld) [Entitic vol]Ordered By: Jorge L Cruz on 36-20-2098Rfnnbxcc mean volume (Bld) [Entitic vol]Platelet mean volume [Entitic volume] in Blood by Automated count6.3-10.7FSelect Medical Specialty Hospital - TrumbullPlatelet morphology finding [Identifier] in BloodOrdered By: Jorge L Cruz on 68-87-1051Rxozgakq morphology finding Nom (Bld)Platelet morphology finding [Identifier] in Blood NormalAdena Regional Medical CenterPlatelets Auto (Bld) [#/Vol]Ordered By: Jorge L Cruz on 38-64-4657Egfluxdzj (Bld) [#/Vol]Platelets [#/volume] in Blood by Automated pvpae544-180IvaskouhvAdena Regional Medical CenterPoikilocytosis [Presence] in Blood by Light microscopyOrdered By: Jorge L Cruz on 44-64-0609Zzoocgchsvmzcw LM Ql (Bld)Poikilocytosis [Presence] in Blood by Light microscopyAdena Regional Medical CenterPotassium [Moles/volume] in Serum or PlasmaOrdered By: Jorge L Cruz on 59-50-2959Trmafiwbc [Moles/Vol]Potassium [Moles/volume] in Serum or Plasma3.5-5.1FSelect Medical Specialty Hospital - TrumbullProtein [Mass/volume] in Serum or PlasmaOrdered By: Jorge L Cruz on 02-12-2025 Protein [Mass/Vol]Protein [Mass/volume] in Serum or PlasmaLow6.4-8.9[facility] CenterProthrombin Time INRon 49-80-4797TMA Coag (PPP) [Relative time]1.0 {INR}NormalThe [facility] Health [facility]son Physician GroupComment on above:Result Comment: INR Therapeutic [...] CBC, CK, HS TROP, BNP, PT, PTT ####[facility] [place] [id number] USAPT Coag (PPP) [Time]11.3 sNormal9.0-12.9[facility] Physician [facility] HospitalComment on above:Result Comment: A hematocrit value greater than 55% may lead to inaccurate results in coagulation testing. Patients having hematocrit values >55% require a special collection tube for coagulation studies. Please contact the laboratory at [phone] for redraw instructions.Performed By: #### SCAN CBC, CK, HS TROP, BNP, PT, PTT ####[place] [id number] [place] [id number] [facility] Prothrombin time (PT)Ordered By: Jorge L Cruz on 30-17-3704FU Coag (PPP) [Time]Prothrombin time (PT)9.0-12.9[facility] CenterComment on above:A hematocrit value greater than 55% may lead to inaccurate results in coagulation testing. Patientshaving hematocrit values >55% require a special collection tube for coagulation studies. Please contact the laboratory at [phone] for redraw instructions.RBC Auto (Bld) [#/Vol]Ordered By: Jorge L Cruz on 78-34-3123JVA (Bld) [#/Vol]Erythrocytes [#/volume] in Blood by Automated countLow3.60-5.00[facility] Hospitalcan and CBCon 53-18-0290GjakmnfzmwdtGcncbaEwcjlyEwfYuma Regional Medical CenterComment on above: Performed By: #### SCAN CBC, CK, HS TROP, BNP, PT, PTT ####[place] [address] [place] [id number] USAAnisocytosis Ql (Bld)Moderate NormalThe [facility]son Physician GroupComment on above:Performed By: #### SCAN CBC, CK, HS TROP, BNP, PT, PTT ####[place] [address] USABasophils (Bld) [#/Vol]0.0 10*3/uLNormal0.0-0.2The [facility] Physician GroupComment on above:Performed By: #### SCAN CBC, CK, HS TROP, BNP, PT, PTT ####[place] [address] USABasophils/100 WBC (Bld)0.6 %Normal.[facility] Comment on above:Performed By: #### SCAN CBC, CK, HS TROP, BNP, PT, PTT ####[address] Eosinophils (Bld) [#/Vol]0.1 10*3/uLNormal0.0-0.45[facility] Comment on above:Performed By: #### SCAN CBC, CK, HS TROP, BNP, PT, PTT ####[address] Eosinophils/100 WBC (Bld)1.5 %Normal.The [facility] Physician GroupComment on above:Performed By: #### SCAN CBC, CK, HS TROP, BNP, PT, PTT ####[address]Erythrocyte distribution width (RBC) [Ratio]13.8 %Uvoygo00.9-15.3The [facility] Physician GroupComment on above:Performed By: #### SCAN CBC, CK, HS TROP, BNP, PT, PTT ####[address] Hematocrit (Bld) [Volume fraction]29.7 %Low34.0-46.4The [facility] Physician GroupComment on above:Performed By: #### SCAN CBC, CK, HS TROP, BNP, PT, PTT ####[address] Hemoglobin (Bld) [Mass/Vol]10.2 g/dLLow11.8-15.4The [facility] Comment on above:Performed By: #### SCAN CBC, CK, HS TROP, BNP, PT, PTT ####[address] Lymphocytes (Bld) [#/Vol]0.9 10*3/uLLow1.00-4.8The [facility] Comment on above:Performed By: #### SCAN CBC, CK, HS TROP, BNP, PT, PTT ####[address] Lymphocytes/100 WBC (Bld)13.6 %Normal.The [facility] Physician GroupComment on above:Performed By: #### SCAN CBC, CK, HS TROP, BNP, PT, PTT ####[address]H (RBC) [Entitic mass]28.9 blPorrir06.7-34.3The [facility] Physician GroupComment on above: Performed By: #### SCAN CBC, CK, HS TROP, BNP, PT, PTT ####[address] StreetV (RBC) [Entitic vol]83.9 fL Rvlkkk05-174Vvg [facility] Physician GroupComment on above:Performed By: #### SCAN CBC, CK, HS TROP, BNP, PT, PTT ####[place] [address] USAMean Corpuscular HGB Conc34.5 g/qRQsheyo47.0-35.0The [facility] Physician GroupComment on above:Performed By: #### SCAN CBC, CK, HS TROP, BNP, PT, PTT ####[place] [address] USAMicrocytosisModerateNormalThe [facility] Physician GroupComment on above:Performed By: #### SCAN CBC, CK, HS TROP, BNP, PT, PTT ####[place] [address] USAMonocytes (Bld) [#/Vol]0.4 10*3/uLNormal0.0-0.8The [facility] Physician GroupComment on above: Performed By: #### SCAN CBC, CK, HS TROP, BNP, PT, PTT ####[place] [address] USAMonocytes/100 WBC (Bld)21.49 % High0.00-20.00The [facility] Physician GroupComment on above:Result Comment: For adults in ED, MDW > 20.0 may be associated with a higher risk of sepsis during the first 12 hrs of hospital admissionPerformed By: #### SCAN CBC, CK, HS TROP, BNP, PT, PTT ####[place] [address] USAMonocytes/100 WBC (Bld)6.6 %Normal.The [facility] Physician GroupComment on above:Performed By: #### SCAN CBC, CK, HS TROP, BNP, PT, PTT ####[place] [address] [place] Neutrophils (Bld) [#/Vol]4.9 10*3/uLNormal1.8-7.7The [facility] Comment on above:Performed By: #### SCAN CBC, CK, HS TROP, BNP, PT, PTT ####[place] [id number] [place] Neutrophils/100 WBC (Bld)77.7 %Normal.The [facility] Physician GroupComment on above:Performed By: #### SCAN CBC, CK, HS TROP, BNP, PT, PTT ####[place] [address] USANRBC%0.1 /100{WBC} Normal0-0.5The [facility] Physician GroupComment on above:Performed By: #### SCAN CBC, CK, HS TROP, BNP, PT, PTT ####[place] [id number] USAOvalocytesSlightNoAtrium Health [facility] Physician Group Comment on above:Performed By: #### SCAN CBC, CK, HS TROP, BNP, PT, PTT ####[address] [address] USAPlatelet EstimateNormalNormalNormHendry Regional Medical Center Physician GroupComment on above: Performed By: #### SCAN CBC, CK, HS TROP, BNP, PT, PTT ####[address] [address] USAPlatelet mean volume (Bld) [Entitic vol]7.7 fLNormal6.3-10.7The [facility] Physician GroupComment on above: Performed By: #### SCAN CBC, CK, HS TROP, BNP, PT, PTT ####[address] [address] USAPlatelet MorphologyNormalNormal NormalThe [facility] Physician GroupComment on above:Result Comment: PERFORMED BY: [facility] [address] [place] [address] PATHOLOGIST PLUGGING MACHINE OPERATOR RAMEZ MONTES M.D.Performed By: #### SCAN CBC, CK, HS TROP, BNP, PT, PTT ####[address] [address] [place] Platelets (Bld) [#/Vol]383 10*3/mBMdpylu296-568Ymv [facility]ician [facility] Comment on above:Performed By: #### SCAN CBC, CK, HS TROP, BNP, PT, PTT ####[address] [address] [place] PoikilocytosisModerateNormHendry Regional Medical Center Physician GroupComment on above: Performed By: #### SCAN CBC, CK, HS TROP, BNP, PT, PTT ####[address] [address] USARBC (Bld) [#/Vol]3.54 10*6/uL Low3.60-5.00The [facility] Physician GroupComment on above:Performed By: #### SCAN CBC, CK, HS TROP, BNP, PT, PTT ####[facility] [place] [address] USAWBC (Bld) [#/Vol]6.3 10*3/uLNormal3.8-11.6The [facility] Physician GroupComment on above:Performed By: #### SCAN CBC, CK, HS TROP, BNP, PT, PTT ####[facility] [place] [address] USAWBC (Bld) [#/Vol]7.6 10*3/uLNormal3.8-11.6The [facility] Physician GroupComment on above:Performed By: #### SCAN CBC, CK, HS TROP, BNP, PT, PTT ####[facility] [place] [address] USASerum or plasma albumin/globulin mass ratioOrdered By: Jorge L Cruz on 02-12-2025 Albumin/Globulin [Mass ratio]Serum or plasma albumin/globulin mass ratio [facility] Hospitalerum or plasma anion gap determinationOrdered By: Jorge L Cruz on 05-81-6785Zxurp gap [Moles/Vol]Serum or plasma anion gap determination6.0-15.0[facility] Hospitalodium [Moles/volume] in Serum or PlasmaOrdered By: Jorge L Cruz on 52-60-3213Ornfdm [Moles/Vol] Sodium [Moles/volume] in Serum or Xepzng532-928OfaxmddtrAdena Regional Medical Center Thyroid Stimulating Hormoneon 22-41-7160VII Qn6.48 m[IU]/LHigh0.45-5.33The [facility] Physician GroupComment on above:Result Comment: PERFORMED BY: [facility] [address] [place] [address] PATHOLOGIST PLUGGING MACHINE OPERATOR RAMEZ MONTES M.D.Performed By: #### TSH3, CMP, MG #### [facility] [address] [place] [address] USAThyrotropin [Units/volume] in Serum or PlasmaOrdered By: Jorge L Cruz on 07-72-7607NXW QnThyrotropin [Units/volume] in Serum or PlasmaHigh0.45-5.33[facility] Medical CenterTroponin I High Sensitivity on 66-87-4282Tdknwikp I High Dnxfydkdrne87Ihqhmz5-86Gbq [facility] Physician GroupComment on above:Result Comment: The Troponin units of report have been changed to meet the Chest Pain Accreditation requirement, element EC5.M1l2. Troponin units are changed from pg/ml to ng/L. Also, the decimal is removed and results are in whole numbers. PERFORMED BY: [place] [address] PATHOLOGIST PLUGGING MACHINE OPERATOR RAMEZ MONTES M.D.Performed By: #### HS TROP ####[place] [address] [place] [address] USATroponin I High Htsbdodomdj54 Normal0-15The [facility] Physician GroupComment on above:Result Comment: The Troponin units of report have been changed to meet the Chest Pain Accreditation requirement, element EC5.M1l2. Troponin units are changed from pg/ml to ng/L. Also, the decimal is removed and results are in whole numbers. PERFORMED BY: [place] [address] PATHOLOGIST PLUGGING MACHINE OPERATOR RAMEZ MONTES M.D.Performed By: #### SCAN CBC, CK, HS TROP, BNP, PT, PTT ####[place] [id number] [facility] Troponin I.cardiac [Mass/volume] in Serum or Plasma by Detection limit <= 0.01 ng/Ordered By: Jorge L Cruz on 86-24-1961Djplkmlh I.cardiac DL <= 0.01 ng/mL [Mass/Vol]Troponin I.cardiac [Mass/volume] in Serum or Plasma by Detection limit <= 0.01 ng/0-15[facility] Medical CenterComment on above:The Troponin units of report have been changed to meet the Chest Pain Accreditation requirement, element EC5.M1l2. Troponin units are changed from pg/ml to ng/L. Also, the decimal is removed and results are in whole numbers.Urea nitrogen [Mass/volume] in Serum or PlasmaOrdered By: Jorge L Cruz on 51-95-7072Xvln nitrogen [Mass/Vol]Urea nitrogen [Mass/volume] in Serum or Plasma [facility] CenterWBC Auto (Bld) [#/Vol]Ordered By: Jorge L Cruz on 45-97-0477LJD (Bld) [#/Vol]Leukocytes [#/volume] in Blood by Automated count3.8-11.6FSelect Medical Specialty Hospital - TrumbullXR chest 2V*on 54-38-7843XA chest 2V*[facility] Main [facility] [address] [place] [address] XRay Report Signed Patient: Lashaun Joaquin MR#: [id number] : 1940 Acct:[id number] Age/Sex: 84 / F ADM Date: 02/12/25 Loc: ER Room: Type: [facility] ER Attending Dr: Copies to: [...] Lyon Jr., D.OManuel02/12/2025 8:16 AM Dictation Location: [place] [address] Transcribed By: [facility] 02/12/25 0816 Dictated By: Epifanio Lyon Jr, DO 02/12/25 0816 Signed By: 02/12/25 0816[facility] Physician GroupaPTT in Platelet poor plasma by Coagulation assayOrdered By: Jorge L Cruz on 37-89-3145fDZL Coag (PPP) [Time]Activated partial thromboplastin time (aPTT) in platelet poor plasma by coagulation a25.1-36.5FSelect Medical Specialty Hospital - TrumbullComment on above:A hematocrit value greater than 55% may lead to inaccurate results in coagulation testing. Patientshaving hematocrit values >55% require a special collection tube for coagulation studies. Please contact the laboratory at [phone] for redraw instructions.[place] Thyroid glandon 08-17[place] [address] Ultrasound Report Signed Patient: LASHAUN JOAQUIN MR#: [id number] : 1940 Acct:[id number] Age/Sex: 84 / F ADM Date: 02/10/25 Loc: US Attending Dr: Reyna Esparza M.D. Ordering Physician: Reyna Esparza M.D. Date of Service: 02/10/25 Procedure(s): US thyroid Accession Number(s): [id number] cc: Nathan Hathaway D.O.; Reyna Esparza M.D. The [address] [address] Patient Name: LASHAUN JOAQUIN MRN: [id number] date: 1940 Sex: F Assigned Patient Location: US Current Patient Location: US Accession/Order Number: [id number] Exam Date: 02/10/2025 11:24 Report Date: 02/10/2025 [...] Shelli Israel M.D.02/10/2025 11:33 AM Dictation Location: [place] [address] Electronically authenticated by: [id number] Y Date: 02/10/2025 11:33 Dictated By: Shelli Israel M.D. Signed By: 02/10/25 1136 DD/ 1133 TD/TT: Event Security Officer:TBHRadiology, Radiologist, - 02/10/2025 [place] [address] Ultrasound Report Signed Patient: LASHAUN JOAQUIN MR#: [id number] : 1940 Acct:[id number] Age/Sex: 84 / F ADM Date: 02/10/25 Loc: US Attending Dr: Reyna Esparza M.D. Ordering Physician: Reyna Esparza M.D. Date of Service: 02/10/25 Procedure(s): US thyroid Accession Number(s): [id number] cc: Nathan Hathaway D.O.; Reyna Esparza M.D. The [place] [id number] Patient Name: LASHAUN JOAQUIN MRN: [id number] date: 1940 Sex: F Assigned Patient Location: US Current Patient Location: US Accession/Order Number: [id number] Exam Date: 02/10/2025 11:24 Report Date: 02/10/2025 [...] Shelli Israel M.D.02/10/2025 11:33 AM Dictation Location: [place] [address] Electronically authenticated by: [id number] Y Date: 02/10/2025 11:33 Dictated By: Shelli Israel M.D. Signed By: 02/10/25 1136 DD/ 1133 TD/TT: Event Security Officer: PEREZ PatelRadiology Study observation (narrative)PEREZ Bergeron Thyroid glandOrdered By: Radiologist Radiology on 44-37-0237AFVY [place] Work Phone: Estimated glomerular filtration rate (GFR) non- Americanon 11-03-9299ROZ/1.73 sq M.predicted among non-blacks MDRD (S/P/Bld) [Vol rate/Area]Estimated glomerular filtration rate (GFR) non- Low>=60 mL/min/1.73m 2FSelect Medical Specialty Hospital - TrumbullLaboratory - Chemistry and Chemistry - challengeon 67-75-5397Znogrye [Mass/Vol]8.9 mg/dL8.5-10.1 [facility] CenterChloride [Moles/Vol]106 mmol/Q21-429NjajazsuaAdena Regional Medical CenterCO2 [Moles/Vol]28.0 mmol/L21.0-32.0[facility] CenterCreatinine [Mass/Vol]1.42 mg/dLHigh0.55-1.02[facility] Medical CenterGFR/1.73 sq M.predicted MDRD (S/P/Bld) [Vol rate/Area]43 mL/min/{1.73_m2}Low>=60 mL/min/1.73m 2FSelect Medical Specialty Hospital - TrumbullGlucose [Mass/Vol]116 mg/jLPuow62-842SruybgofaAdena Regional Medical CenterPotassium [Moles/Vol]3.9 mmol/L3.5-5.1FOhioHealth Marion General Hospitalodium [Moles/Vol] 145 mmol/J278-198ZlgqwexicAdena Regional Medical CenterUrea nitrogen [Mass/Vol]21.0 mg/dLHigh7.0-18.0[facility] Medical CenterUrea nitrogen/Creatinine [Mass ratio]14.8 mg/mgOhio Valley Hospitalerum or plasma anion gap determinationon 13-74-5706Xvyja gap [Moles/Vol]Serum or plasma anion gap determinationAdena Regional Medical CenterLaboratory - Chemistry and Chemistry - challengeon 82-91-6616Jhogubbrn Ql (U)NegativeAdena Regional Medical CenterGlucose (U) [Mass/Vol]NegativeAdena Regional Medical Center Ketones Ql (U)[facility] HospitalpH (U)5 [pH][facility] Hospitalpecific gravity (U) [Rel density]1.000A[facility] Medical CenterUrobilinogen (U) [Mass/Vol]NegativeAdena Regional Medical CenterLaboratory - Specimen informationon 88-99-3126Ijntyjpbcv (U)clearAdena Regional Medical CenterColor (U)yellowAdena Regional Medical Center Laboratory - Urinalysison 13-72-4487Kywvyuvsn esterase Test strip Ql (U)Negative [facility] CenterNitrite Ql (U)NegativeAdena Regional Medical CenterProtein Ql (U)0.2FSelect Medical Specialty Hospital - TrumbullNo Panel Informationon 82-19-6112Wgqqz Occult Blood++[facility] Estimated glomerular filtration rate (GFR) non- Americanon 12-18-2024 GFR/1.73 sq M.predicted among non-blacks MDRD (S/P/Bld) [Vol rate/Area]Estimated glomerular filtration rate (GFR) non- AmericanLow>=60 mL/min/1.73m 2 [facility] CenterLaboratory - Chemistry and Chemistry - challengeon 41-32-7420Ubmymdf [Mass/Vol]8.9 mg/dL8.5-10.1FSelect Medical Specialty Hospital - TrumbullChloride [Moles/Vol]105 mmol/M02-608DcyqbzmevAdena Regional Medical CenterCO2 [Moles/Vol]30.4 mmol/L21.0-32.0[facility] Creatinine [Mass/Vol]1.57 mg/dLHigh0.55-1.02[facility] Free T4 [Mass/Vol]0.90 ng/dL0.76-1.46[facility] Medical CenterGFR/1.73 sq M.predicted MDRD (S/P/Bld) [Vol rate/Area]38 mL/min/{1.73_m2}Low>=60 mL/min/1.73m 2FSelect Medical Specialty Hospital - TrumbullGlucose [Mass/Vol]119 mg/dLHigh 74-106A[facility] Medical CenterPotassium [Moles/Vol]4.1 mmol/L3.5-5.1 [facility] Hospitalodium [Moles/Vol]143 mmol/Q123-924UfpadjkvhAdena Regional Medical CenterTSH Qn2.650 m[IU]/L0.358-3.740A[facility] Medical CenterUrea nitrogen [Mass/Vol]28.0 mg/dLHigh7.0-18.0[facility] Medical CenterUrea nitrogen/Creatinine [Mass ratio]17.8 mg/mgOhio Valley Hospitalerum or plasma anion gap determinationon 80-55-9389Ldglv gap [Moles/Vol] Serum or plasma anion gap determinationAdena Regional Medical CenterINR in Platelet poor plasma by Coagulation assayOrdered By: Nathan Hathaway on 11-17-2024 INR Coag (PPP) [Relative time]INR in Platelet poor plasma by Coagulation assay [facility] CenterComment on above:INR Therapeutic Range [...] [id number] Received: 11/17/24130 Status: SERENITY Rojas Num: [id number] Spec Type: Cytology Subm Dr: Seth Ley DO Tissues: A FNA SLIDES PATH (FNA THYROID) Procedures: -, DIFF QWIK/JOHN Hayden/4 Age/ Patient Sex Location Account Attending Physician Lashaun Joaquin 84/F [id number] Nathan Hathaway DO SPEC NUM: [id number] RECD: 11/17/24 STATUS: SERENITY ROJAS NUM: [id number] JED: 11/17/24- [facility] DR: Seth Ley DO ENTERED: 11/17/[address] [facility] [address]: Nathan Hathaway DO SPEC TYPE: Cytology DEPT: CNG ENTERED BY: [id number] RECV BY: [id number] ORDERED: -, DIFF QWIK/3, PAPSTN/4 ORDERED: -, DIFF QWIK/3, PAPSTN/4 Pathological Diagnosis Thyroid nodule, US-guided FNA: Satisfactory for evaluation. Benign ([place] category I). Clinical Information Thyroid Nodule,adrenal nodule, hypothyroidism Gross Description Received fixed in Cytolyt is 32 ml red hazy fixed fluid for cytology said to have been obtained as Thyroid. ThinPrep preparations are prepared for microscopic examination. Also received are 6 total smeared slides and a Veracyte vial stored at -20 for microscopic examination. (CC/or) Immediate Evaluation Thyroid, FNA, immediate evaluation: Mostly macrophages and colloid; additional pass requested. 11/17/2024, 12:20 PM Specimen: [id number] Received: 11/17/24 Status: SERENITY Betsy Num: [id number] Spec Type: Cytology Subm Dr: Seth Ley DO Tissues: A FNA SLIDES PATH (FNA THYROID) Procedures: -, DIFF QWIK/3, PAPSTN/4 Patient: Lashaun Joaquin [id number] (Continued) Specimen: [id number] Received: 11/17/24 (Continued) Signed (signature on file) Lala Mast MD 11/18/24 0857 Specimen: [id number] Received: 11/17/24 Status: SERENITY Betsy Num: [id number] Spec Type: Cytology Subm Dr: Seth Ley DO Tissues: A FNA SLIDES PATH (FNA THYROID) Procedures: -, DIFF REENA/JOHN Hayden/4 Patient: Lashaun Joaquin [id number] (Continued) Specimen: [id number] Received: 11/17/24 (Continued) CPT Codes 35642, 54497 Specimen: [id number] Received: 11/17/24 Status: SERENITY Rojas Num: [id number] Spec Type: Cytology Subm Dr: Seth Ley DO Tissues: A FNA SLIDES PATH (FNA THYROID) Procedures: -, DIFF QWIK/3, PAPSTN/4 Patient: Lashaun Joaquin [id number] (Continued) Signed (signature on file) Lala Mast MD 11/18/24 0857 NormalGainesville Va [facility] Physician [facility] HospitalPartial Thromboplastin Timeon 51-16-7513iFWQ Coag (Bld) [Time]28.9 lDsmomg53.1-36.5The [facility] Physician GroupComment on above:Result Comment: A hematocrit value greater than 55% may lead to inaccurate results in coagulation testing. Patients having hematocrit values >55% require a special collection tube for coagulation studies. Please contact the laboratory at [phone] for redraw instructions. PERFORMED BY: [place] [address] PATHOLOGIST PLUGGING MACHINE OPERATOR RAMEZ MONTES M.D.Performed By: #### PTT, PT #### [place] [address] USAPlatelet Counton 31-47-1542Eyjxdlcbc (Bld) [#/Vol]253 10*3/sKLlcsrk045-704Uvp [facility] Physician [facility] HospitalComment on above:Result Comment: PERFORMED BY: [place] [address] PATHOLOGIST PLUGGING MACHINE OPERATOR RAMEZ MONTES M.D.Performed By: #### PLT #### [place] [address] USAPlatelets Auto (Bld) [#/Vol]Ordered By: Nathan Hathaway on 95-29-7765Emwzrxrvc (Bld) [#/Vol]Platelets [#/volume] in Blood by Automated -548NgntkexxyAdena Regional Medical CenterProthrombin Time INRon 11-17-2024 INR Coag (PPP) [Relative time]1.0 {INR}NormalThe [facility] Comment on above:Result Comment: INR [...] - 4.5Performed By: #### PTT, PT #### [facility] [address] [place] [address] USAPT Coag (PPP) [Time]11.9 sNormal9.0-12.9The [facility] Physician GroupComment on above:Result Comment: A hematocrit value greater than 55% may lead to inaccurate results in coagulation testing. Patients having hematocrit values >55% require a special collection tube for coagulation studies. Please contact the laboratory at [phone] for redraw instructions.Performed By: #### PTT, PT #### [facility] [address] [place] [address] USAProthrombin time (PT)Ordered By: Nathan Hathaway on 93-99-4042XH Coag (PPP) [Time]Prothrombin time (PT)9.0-12.9[facility] Medical CenterComment on above:A hematocrit value greater than 55% may lead to inaccurate results in coagulation testing. Patientshaving hematocrit values >55% require a special collection tube for coagulation studies. Please contact the laboratory at [phone] for redraw instructions.US needle aspirationon 26-76-0762BY needle aspirationDUNLAP MEMORIAL HOSPITAL Main [facility] [address] [place] [address] Ultrasound Report Signed Patient: Lashaun Joaquin MR#: [id number] : 1940 Acct:[id number] Age/Sex: 84 / F ADM Date: 11/17/24 Loc: Room: Type: [facility] Attending Dr: Nathan Hathaway DO Ordering [...] Seth Ley M.D.11/17/2024 12:41 PM Dictation Location: [facility] Tech: Deaj Ruel Transcribed By: LAURA 11/17/24 1241 Dictated By: Seth Ley DO 11/17/24 1159 Signed By: 11/17/24 1241[facility] Physician GroupaPTT in Platelet poor plasma by Coagulation assayOrdered By: Nathan Hathaway on 05-26-3593jBVK Coag (PPP) [Time] Activated partial thromboplastin time (aPTT) in platelet poor plasma by coagulation a25.1-36.5FSelect Medical Specialty Hospital - TrumbullComment on above:A hematocrit value greater than 55% may lead to inaccurate results in coagulation testing. Patientshaving hematocrit values >55% require a special collection tube for coagulation studies. Please contact the laboratory at [phone] for redraw instructions.Estimated glomerular filtration rate (GFR) non- Americanon 59-78-6345NYV/1.73 sq M.predicted among non-blacks MDRD (S/P/Bld) [Vol rate/Area]Estimated glomerular filtration rate (GFR) non- Low>=60 mL/min/1.73m 2FSelect Medical Specialty Hospital - TrumbullLaboratory - Chemistry and Chemistry - challengeon 34-77-4102Ljznlzo [Mass/Vol]8.6 mg/dL8.5-10.1 [facility] CenterChloride [Moles/Vol]108 mmol/AOwsu19-777 [facility] CenterCO2 [Moles/Vol]27.0 mmol/L21.0-32.0[facility] CenterCreatinine [Mass/Vol]1.39 mg/dLHigh0.55-1.02[facility] Medical CenterFree T4 [Mass/Vol]0.80 ng/dL0.76-1.46[facility] CenterGFR/1.73 sq M.predicted MDRD (S/P/Bld) [Vol rate/Area]44 mL/min/{1.73_m2}Low>=60 mL/min/1.73m 2FSelect Medical Specialty Hospital - TrumbullGlucose [Mass/Vol]85 mg/zO64-713HbcgzbyfxAdena Regional Medical CenterPotassium [Moles/Vol] 4.5 mmol/L3.5-5.1FOhioHealth Marion General Hospitalodium [Moles/Vol]144 mmol/L 136-145A[facility] Medical CenterTSH Qn3.767 m[IU]/LHigh0.358-3.740 [facility] CenterUrea nitrogen [Mass/Vol]20.0 mg/dLHigh7.0-18.0 [facility] CenterUrea nitrogen/Creatinine [Mass ratio]14.4 mg/mg [facility] Hospitalerum or plasma anion gap determinationon 83-03-5058Xbzlf gap [Moles/Vol]Serum or plasma anion gap determinationAdena Regional Medical CenterEstimated glomerular filtration rate (GFR) non- Americanon 42-86-3294TLI/1.73 sq M.predicted among non-blacks MDRD (S/P/Bld) [Vol rate/Area]39 mL/min/{1.73_m2}Low>=60[facility] Laboratory - Chemistry and Chemistry - challengeon 07-26-1563Cvlgows [Mass/Vol] 8.8 mg/dL8.5-10.1FSelect Medical Specialty Hospital - TrumbullChloride [Moles/Vol]106 mmol/L 98-107[facility] Medical CenterCO2 [Moles/Vol]30.8 mmol/L21.0-32.0 [facility] CenterCreatinine [Mass/Vol]1.30 mg/dLHigh0.55-1.02 [facility] CenterGFR/1.73 sq M.predicted MDRD (S/P/Bld) [Vol rate/Area]48 mL/min/{1.73_m2}Low>=60[facility] CenterGlucose [Mass/Vol]89 mg/vJ38-519GubnjadwpAdena Regional Medical CenterPotassium [Moles/Vol] 4.3 mmol/L3.5-5.1FOhioHealth Marion General Hospitalodium [Moles/Vol]143 mmol/L 136-145A[facility] Medical CenterUrea nitrogen [Mass/Vol]24.0 mg/dLHigh 7.0-18.0[facility] CenterUrea nitrogen/Creatinine [Mass ratio] 18.5 mg/mgOhio Valley Hospitalerum or plasma anion gap determinationon 33-26-7593Aewox gap [Moles/Vol]10.5 mmol/[facility] Medical CenterEstimated glomerular filtration rate (GFR) non- Americanon 42-04-2515LQJ/1.73 sq M.predicted among non-blacks MDRD (S/P/Bld) [Vol rate/Area]37 mL/min/{1.73_m2}Low>=60[facility] CenterLaboratory - Chemistry and Chemistry - challengeon 40-35-5684Qvlruen [Mass/Vol]8.5 mg/dL 8.5-10.1FSelect Medical Specialty Hospital - TrumbullChloride [Moles/Vol]106 mmol/L98-107 [facility] CenterCO2 [Moles/Vol]28.7 mmol/L21.0-32.0[facility] CenterCreatinine [Mass/Vol]1.36 mg/dLHigh0.55-1.02[facility] CenterGFR/1.73 sq M.predicted MDRD (S/P/Bld) [Vol rate/Area]45 mL/min/{1.73_m2}Low>=60[facility] CenterGlucose [Mass/Vol]98 mg/tT50-877PzrrqfrrcAdena Regional Medical CenterPotassium [Moles/Vol]4.3 mmol/L 3.5-5.1FOhioHealth Marion General Hospitalodium [Moles/Vol]142 mmol/U711-278 [facility] CenterUrea nitrogen [Mass/Vol]26.0 mg/dLHigh7.0-18.0 [facility] CenterUrea nitrogen/Creatinine [Mass ratio]19.1 mg/mg [facility] Hospitalerum or plasma anion gap determinationon 86-90-0713[place] gap [Moles/Vol]11.6 mmol/Regional Medical CenterNM Heart Perfusion W stress and W radionuclide Rivka 23-76-2269Cszwnn Lexiscan Myoview cardiac perfusion stress test. No evidence of ischemia or myocardial infarction by perfusion imaging. Normal left ventricular systolic function, ejection fraction 88%. When compared previous study changes are noted. Previous study showed anterior wall ischemia which was not present during the study. Signed by: Faustino Zuniga 03/12/2024 4:34 PM Dictation workstation: [id number] By: Faustino Zuniga and Giannuzzi Michael STUDY: MYOCARDIAL PERFUSION STRESS TEST WITH LEXISCAN Performing facility: [facility], [address], [address], [place] [address] [facility] Provider: Holden Rosado RN, [employer] PCP: Dr. Ksenia Hathaway Supervising provider: Anthony Perry DO, [facility] INDICATION: ASHD HISTORY: Gender: F; Age: 83 y/o ; Height: HT 165.1 cm cm; Weight: WT 88.905 kg kg. CAD; High Cholesterol; HTN; Fatigue; Quit smoking 44 years ago. Cardiac catheterization on 2022. PTCA on 2022. COMPARISON: Previous nuclear testing completed [id number] at [place]. ACCESSION NUMBER(S): [id number] ORDERING CLINICIAN: HOLDEN ROSADO TECHNIQUE: ONE DAY [...] PERFUSION STRESS TEST WITH LEXISCAN Performing facility: [facility], [address], [address], [place] [address] [facility] Provider: Holden Rosado RN, [employer] PCP: Dr. Ksenia Hathaway Supervising provider: Anthony Perry DO, [facility] INDICATION: ASHD HISTORY: Gender: F; Age: 83 y/o ; Height: HT 165.1 cm cm; Weight: WT 88.905 kg kg. CAD; High Cholesterol; HTN; Fatigue; Quit smoking 44 years ago. Cardiac catheterization on 2022. PTCA on 2022. COMPARISON: Previous nuclear testing completed [id number] at [place]. ACCESSION NUMBER(S): [id number] ORDERING CLINICIAN: HOLDEN ROSADO TECHNIQUE: ONE DAY [...] Faustino Zuniga 03/12/2024 4:34 PM Dictation workstation: [id number] [facility] Work Phone: Radiology Study observation (narrative)[facility] Work Phone: NM Heart Perfusion W stress and W radionuclide IV Ordered By: Faustino Zuniga on 57-95-4419BdcgzsyierSt. Mary's Medical Center Work Phone: Calcium [Mass/volume] in Serum or PlasmaOrdered By: Holden Rosado on 59-81-3411Gxopwuj [Mass/Vol]9.2 mg/dL8.6-10.3FSelect Medical Specialty Hospital - TrumbullCarbon dioxide, total [Moles/volume] in Serum or PlasmaOrdered By: Holden Rosado on 26-66-6962NE4 [Moles/Vol]32.1 mmol/LHigh21.0-31.0[facility] CenterChloride [Moles/volume] in Serum or PlasmaOrdered By: Holden Rosado on 99-50-8802Btrsxorz [Moles/Vol]104 mmol/P81-360BacttacwuAdena Regional Medical CenterCreatinine [Mass/volume] in Serum or PlasmaOrdered By: Holden Rosado on 78-30-9640Drnutgymyj [Mass/Vol]1.36 mg/dLHigh0.60-1.20[facility] CenterGlucose [Mass/volume] in Serum or PlasmaOrdered By: Holden Rosado on 99-22-5742Ccxlqhe [Mass/Vol]79 mg/wX53-743MlgyjrvikAdena Regional Medical Center Comment on above:ADA recommended reference rangeRandom Glucose Reference Range is dependent on time and content of last meal. Glucose of more than 200 mg/dL in a nonstressed, ambulatory subject supports the diagnosisof Diabetes Mellitus.No Panel InformationOrdered By: Holden Rosado on 16-06-7937Preqmjfvi GFR (CKD-EPI) 39.134 mL/MinAdena Regional Medical CenterPharmacy Creatinine Clearance (ChemN/AFSelect Medical Specialty Hospital - TrumbullPotassium [Moles/volume] in Serum or PlasmaOrdered By: Holden Rosado on 24-35-4142Unfnwpqoo [Moles/Vol]5.2 mmol/LHigh 3.5-5.1FOhioHealth Marion General Hospitalerum or plasma anion gap determination Ordered By: Holden Rosado on 01-72-9850Zrqjx gap [Moles/Vol]10.1 mmol/L6.0-15.0 [facility] Hospitalodium [Moles/volume] in Serum or PlasmaOrdered By: Holden Rosado on 31-64-0854Kxtckz [Moles/Vol]141 mmol/J941-494PyicmaurkAdena Regional Medical CenterUrea nitrogen [Mass/volume] in Serum or PlasmaOrdered By: Holden Rosado on 18-87-5431Vvaq nitrogen [Mass/Vol]26 mg/dLHigh7-25[facility] CenterBasophils Auto (Bld) [#/Vol]on 37-25-1091Obynrnfcc (Bld) [#/Vol]0.0 10 3/uL0.0-0.1FSelect Medical Specialty Hospital - TrumbullBasophils/100 WBC Auto (Bld)on 43-69-4976Dngyuofrx/100 WBC (Bld)0.8 %0.2-2.0[facility] CenterEosinophils/100 WBC Auto (Bld)on 03-76-4613Wknuyuhfpzo/100 WBC (Bld)2.8 % 0.9-7.0[facility] CenterErythrocyte distribution width Auto (RBC) [Ratio]on 72-57-3196Mwvdqeqisil distribution width (RBC) [Ratio]13.1 % 11.0-15.0[facility] CenterEstimated glomerular filtration rate (GFR) non- Americanon 32-33-5362CYU/1.73 sq M.predicted among non-blacks MDRD (S/P/Bld) [Vol rate/Area]49 mL/min/{1.73_m2}>=60[facility] CenterGlobulin Calc (S) [Mass/Vol]on 05-89-0736Fvmesuyg (S) [Mass/Vol]2.7 g/dL [facility] CenterHematocrit Auto (Bld) [Volume fraction]on 64-08-8770Bhqltntwmu (Bld) [Volume fraction]29.2 %36.0-48.0[facility] CenterHemoglobin [Mass/volume] in Bloodon 13-55-7092Xuhoqeatqa (Bld) [Mass/Vol]9.5 g/dL12.0-16.0[facility] CenterLaboratory - Chemistry and Chemistry - challengeon 15-06-2239Kczcnkq [Mass/Vol]2.9 g/dL 3.4-5.0[facility] CenterALP [Catalytic activity/Vol]44 U/L46-116 [facility] CenterALT [Catalytic activity/Vol]13 U/L14-59 [facility] CenterAST [Catalytic activity/Vol]14 U/L15-37 [facility] CenterBilirubin [Mass/Vol]0.6 mg/dL0.2-1.0[facility] CenterCalcium [Mass/Vol]8.9 mg/dL8.5-10.1FSelect Medical Specialty Hospital - TrumbullChloride [Moles/Vol]107 mmol/R13-241DmqenwvacAdena Regional Medical CenterCO2 [Moles/Vol]27.9 mmol/L21.0-32.0[facility] Creatinine [Mass/Vol]1.08 mg/dL0.55-1.02[facility] GFR/1.73 sq M.predicted MDRD (S/P/Bld) [Vol rate/Area]59 mL/min/{1.73_m2}>=60 [facility] CenterGlucose [Mass/Vol]83 mg/pT33-318AguwljfowAdena Regional Medical CenterPotassium [Moles/Vol]3.8 mmol/L3.5-5.1FSelect Medical Specialty Hospital - TrumbullProtein [Mass/Vol]5.6 g/dL6.4-8.2FSelect Medical Specialty Hospital - Trumbull Sodium [Moles/Vol]141 mmol/U799-643LfcsccjlnAdena Regional Medical CenterUrea nitrogen [Mass/Vol]18.0 mg/dL7.0-18.0[facility] CenterUrea nitrogen/Creatinine [Mass ratio]16.7 mg/mgAdena Regional Medical Center Laboratory - Hematology and Cell countson 19-82-7929Dijolbqd granulocytes/100 WBC (Bld)0.2 %0.0-0.5FSelect Medical Specialty Hospital - TrumbullLeukocytes [#/volume] corrected for nucleated erythrocytes in Blood by Automated counon 03-18-0325NBU corrected for nucl RBC Auto (Bld) [#/Vol]4.7 10 3/uL4.0-11.0[facility] CenterLymphocytes Auto (Bld) [#/Vol]on 28-54-5897Yvzgfbhniim (Bld) [#/Vol]1.0 10 3/uL1.2-3.8[facility] CenterLymphocytes/100 WBC Auto (Bld)on 37-73-5216Ptidkzzrctt/100 WBC (Bld)21.8 %20.5-60.0[facility] CenterH Auto (RBC) [Entitic mass]on 06-85-9464IFS (RBC) [Entitic mass]29.2 pg26.7-34.0[facility] CenterMCHC Auto (RBC) [Mass/Vol]on 93-13-6867LCGS (RBC) [Mass/Vol]32.5 g/dL29.9-35.2FSelect Medical Specialty Hospital - TrumbullMCV Auto (RBC) [Entitic vol]on 69-64-8226FQY (RBC) [Entitic vol] 89.8 fL81.0-99.0[facility] CenterMonocytes Auto (Bld) [#/Vol]on 43-56-9031Loxrsfbag (Bld) [#/Vol]0.7 10 3/uL0.3-0.8[facility] CenterMonocytes/100 WBC Auto (Bld)on 14-43-6807Iwxzgayyo/100 WBC (Bld)14.2 % 1.7-12.0[facility] CenterNeutrophils Auto (Bld) [#/Vol]on 08-28-0219Zvobnrlpdho (Bld) [#/Vol]2.8 10 3/uL1.4-6.5FSelect Medical Specialty Hospital - TrumbullNeutrophils/100 WBC Auto (Bld)on 02-38-1628Amgvsmpsgpo/100 WBC (Bld)60.2 % 43.0-75.0[facility] CenterNo Panel Informationon 02-20-2024 Eosinophils # (Auto)0.1 10 3/uL0.0-0.7FSelect Medical Specialty Hospital - TrumbullImmature Granulocyte # (Auto)0.01 10 3/uL0.00-0.03[facility] Platelet mean volume Auto (Bld) [Entitic vol]on 88-87-4320Imagwfii mean volume (Bld) [Entitic vol]10.5 fL9.5-13.5FSelect Medical Specialty Hospital - TrumbullPlatelets Auto (Bld) [#/Vol]on 09-52-9377Mdwurijrc (Bld) [#/Vol]250 10 3/xJ956-041 [facility] CenterRBC Auto (Bld) [#/Vol]on 98-31-7763FBO (Bld) [#/Vol]3.25 10 6/uL4.20-5.40[facility] Hospitalerum or plasma albumin/globulin mass ratioon 51-38-7415Mdkeopu/Globulin [Mass ratio]1.1 {ratio} [facility] Hospitalerum or plasma anion gap determinationon 71-28-0062Iysps gap [Moles/Vol]9.9 mmol/LFSelect Medical Specialty Hospital - Trumbull Basophils Auto (Bld) [#/Vol]on 01-35-1380Opqrcyrpp (Bld) [#/Vol]0.0 10 3/uL 0.0-0.1FSelect Medical Specialty Hospital - TrumbullBasophils/100 WBC Auto (Bld)on 62-74-3801Chssgfihp/100 WBC (Bld)0.8 %0.2-2.0[facility] Cholesterol in LDL Calc [Mass/Vol]on 11-75-8343Qlxpjakdrvp in LDL [Mass/Vol] 100.4 mg/dLAdena Regional Medical CenterComment on above:<100 mg/dl YEYSTLZ417-608 mg/dl NEAR OR ABOVE XESIZRZ634-242 mg/dl BORDERLINE ULTH562-532 mg/dl HIGH>190 mg/dl VERY HIGHCholesterol in VLDL Calc [Mass/Vol]on 02-19-2024 Cholesterol in VLDL [Mass/Vol]15.6 mg/dLAdena Regional Medical Center Eosinophils/100 WBC Auto (Bld)on 98-89-8488Vgkyvtzdfsa/100 WBC (Bld)1.9 %0.9-7.0 [facility] CenterErythrocyte distribution width Auto (RBC) [Ratio]on 96-35-6617Kykenbkbxva distribution width (RBC) [Ratio]13.2 %11.0-15.0 [facility] CenterEstimated glomerular filtration rate (GFR) non- Americanon 70-09-2206HMM/1.73 sq M.predicted among non-blacks MDRD (S/P/Bld) [Vol rate/Area]44 mL/min/{1.73_m2}>=60[facility] CenterGlobulin Calc (S) [Mass/Vol]on 36-35-9859Dozqqbrj (S) [Mass/Vol]2.8 g/dL [facility] CenterHematocrit Auto (Bld) [Volume fraction]on 38-88-5635Lzohkchzux (Bld) [Volume fraction]31.2 %36.0-48.0[facility] CenterHemoglobin [Mass/volume] in Bloodon 18-18-0780Nlzzghksdn (Bld) [Mass/Vol]10.0 g/dL12.0-16.0[facility] CenterLaboratory - Chemistry and Chemistry - challengeon 61-42-3341Ipdiiko [Mass/Vol]3.2 g/dL 3.4-5.0[facility] CenterALP [Catalytic activity/Vol]49 U/L46-116 [facility] CenterALT [Catalytic activity/Vol]15 U/L14-59 [facility] CenterAST [Catalytic activity/Vol]15 U/L15-37 [facility] CenterBilirubin [Mass/Vol]0.5 mg/dL0.2-1.0[facility] CenterCalcium [Mass/Vol]9.4 mg/dL8.5-10.1FSelect Medical Specialty Hospital - TrumbullChloride [Moles/Vol]108 mmol/D06-379VwurdqajcAdena Regional Medical CenterCholesterol [Mass/Vol]158 mg/dL<=200[facility] Cholesterol in HDL [Mass/Vol]42 mg/oJ67-29ByjksicfhAdena Regional Medical Center Comment on above:> or =60 mg/dl - LOW CARDIOVASCULAR RISK<40 mg/dl - HIGH CARDIOVASCULAR RISKCO2 [Moles/Vol]28.7 mmol/L21.0-32.0[facility] CenterCreatinine [Mass/Vol]1.18 mg/dL0.55-1.02[facility] GFR/1.73 sq M.predicted MDRD (S/P/Bld) [Vol rate/Area]53 mL/min/{1.73_m2}>=60 [facility] CenterGlucose [Mass/Vol]93 mg/aR56-972RnbrccwjqAdena Regional Medical CenterPotassium [Moles/Vol]4.0 mmol/L3.5-5.1FSelect Medical Specialty Hospital - TrumbullProtein [Mass/Vol]6.0 g/dL6.4-8.2FSelect Medical Specialty Hospital - Trumbull Sodium [Moles/Vol]145 mmol/Y072-171JykdaheoqAdena Regional Medical CenterTriglyceride [Mass/Vol]78 mg/dL<=150[facility] CenterTSH Qn4.696 m[IU]/L 0.358-3.740[facility] CenterUrea nitrogen [Mass/Vol]20.0 mg/dL 7.0-18.0[facility] CenterUrea nitrogen/Creatinine [Mass ratio] 16.9 mg/mgAdena Regional Medical CenterLaboratory - Hematology and Cell countson 30-45-6495Lpazomar granulocytes/100 WBC (Bld)0.6 %0.0-0.5FSelect Medical Specialty Hospital - TrumbullLeukocytes [#/volume] corrected for nucleated erythrocytes in Blood by Automated counon 54-83-8161LGE corrected for nucl RBC Auto (Bld) [#/Vol]5.3 10 3/uL4.0-11.0[facility] Lymphocytes Auto (Bld) [#/Vol]on 15-81-9180Jmzblttcmpa (Bld) [#/Vol]1.1 10 3/uL 1.2-3.8[facility] CenterLymphocytes/100 WBC Auto (Bld)on 70-70-5901Zbuvbstdbtr/100 WBC (Bld)21.3 %20.5-60.0[facility] CenterMCH Auto (RBC) [Entitic mass]on 27-94-3346TLM (RBC) [Entitic mass]29.6 pg 26.7-34.0[facility] CenterMCHC Auto (RBC) [Mass/Vol]on 16-52-4306HMIL (RBC) [Mass/Vol]32.1 g/dL29.9-35.2FSelect Medical Specialty Hospital - TrumbullMCV Auto (RBC) [Entitic vol]on 88-44-6468XZC (RBC) [Entitic vol]92.3 fL 81.0-99.0[facility] CenterMonocytes Auto (Bld) [#/Vol]on 27-36-5013Astzgzbbg (Bld) [#/Vol]0.6 10 3/uL0.3-0.8[facility] CenterMonocytes/100 WBC Auto (Bld)on 51-39-7599Umlaobthd/100 WBC (Bld)11.1 % 1.7-12.0[facility] CenterNeutrophils Auto (Bld) [#/Vol]on 30-80-9672Qlepomdvmpo (Bld) [#/Vol]3.4 10 3/uL1.4-6.5FSelect Medical Specialty Hospital - TrumbullNeutrophils/100 WBC Auto (Bld)on 21-83-3292Ygevpmocmkt/100 WBC (Bld)64.3 % 43.0-75.0[facility] CenterNo Panel Informationon 02-19-2024 Eosinophils # (Auto)0.1 10 3/uL0.0-0.7FSelect Medical Specialty Hospital - TrumbullImmature Granulocyte # (Auto)0.03 10 3/uL0.00-0.03[facility] Platelet mean volume Auto (Bld) [Entitic vol]on 13-45-2370Gwjqczdh mean volume (Bld) [Entitic vol]10.4 fL9.5-13.5FSelect Medical Specialty Hospital - TrumbullPlatelets Auto (Bld) [#/Vol]on 51-77-9078Qittdegfx (Bld) [#/Vol]262 10 3/aT476-026 [facility] CenterRBC Auto (Bld) [#/Vol]on 68-79-6055QHH (Bld) [#/Vol]3.38 10 6/uL4.20-5.40[facility] Hospitalerum or plasma albumin/globulin mass ratioon 31-73-4011Tkurrnf/Globulin [Mass ratio]1.1 {ratio} [facility] Hospitalerum or plasma anion gap determinationon 47-89-2649Oecww gap [Moles/Vol]12.3 mmol/LFOhioHealth Marion General Hospitalerum or plasma total cholesterol/high density lipoprotein (HDL) cholesterol mass rat on 62-92-1047Yncjwbeolkq.total/Cholesterol in HDL [Mass ratio]3.8 {ratio} [facility] CenterComment on above:3.3 - 4.4 LOW RISK4.4 - 7.1 AVERAGE RISK7.1 - 11.0 MODERATE RISK>11.0 HIGH RISKBasophils Auto (Bld) [#/Vol] on 66-12-7387Rigvxeqxm (Bld) [#/Vol]0.0 10 3/uL0.0-0.1FSelect Medical Specialty Hospital - TrumbullBasophils/100 WBC Auto (Bld)on 04-72-1707Ckpemxjyt/100 WBC (Bld)0.4 % 0.2-2.0[facility] CenterEosinophils/100 WBC Auto (Bld)on 38-37-1413Rgnmsgtqugq/100 WBC (Bld)1.2 %0.9-7.0[facility] Erythrocyte distribution width Auto (RBC) [Ratio]on 05-29-1064Ftssfyyhbkv distribution width (RBC) [Ratio]13.2 %11.0-15.0[facility] Estimated glomerular filtration rate (GFR) non- Americanon 02-18-2024 GFR/1.73 sq M.predicted among non-blacks MDRD (S/P/Bld) [Vol rate/Area]34 mL/min/{1.73_m2}>=60[facility] CenterHematocrit Auto (Bld) [Volume fraction]on 44-01-7871Hqzxwwqapj (Bld) [Volume fraction]31.7 %36.0-48.0 [facility] CenterHemoglobin [Mass/volume] in Bloodon 02-18-2024 Hemoglobin (Bld) [Mass/Vol]10.3 g/dL12.0-16.0[facility] Laboratory - Chemistry and Chemistry - challengeon 22-14-0252Abttyllgl [Mass/Vol]2.3 mg/dL1.8-2.4FSelect Medical Specialty Hospital - TrumbullNatriuretic peptide B (Bld) [Mass/Vol]800.0 pg/mL<=1800.0[facility] CenterCalcium [Mass/Vol]9.0 mg/dL8.5-10.1FSelect Medical Specialty Hospital - TrumbullChloride [Moles/Vol] 106 mmol/U05-504GxtrisqvdAdena Regional Medical CenterCO2 [Moles/Vol]30.4 mmol/L 21.0-32.0[facility] CenterCreatinine [Mass/Vol]1.46 mg/dL 0.55-1.02[facility] CenterGFR/1.73 sq M.predicted MDRD (S/P/Bld) [Vol rate/Area]42 mL/min/{1.73_m2}>=60[facility] CenterGlucose [Mass/Vol]102 mg/iB25-226KugqoqdqsAdena Regional Medical CenterPotassium [Moles/Vol] 4.1 mmol/L3.5-5.1FOhioHealth Marion General Hospitalodium [Moles/Vol]144 mmol/L 136-145[facility] CenterUrea nitrogen [Mass/Vol]21.0 mg/dL 7.0-18.0[facility] CenterUrea nitrogen/Creatinine [Mass ratio] 14.4 mg/mgAdena Regional Medical CenterLaboratory - Hematology and Cell countson 01-54-9363Xsbuxrdt granulocytes/100 WBC (Bld)0.7 %0.0-0.5FSelect Medical Specialty Hospital - TrumbullLeukocytes [#/volume] corrected for nucleated erythrocytes in Blood by Automated counon 34-25-7635GVI corrected for nucl RBC Auto (Bld) [#/Vol]6.8 10 3/uL4.0-11.0[facility] Lymphocytes Auto (Bld) [#/Vol]on 04-26-7591Winofpeayxq (Bld) [#/Vol]0.8 10 3/uL 1.2-3.8[facility] CenterLymphocytes/100 WBC Auto (Bld)on 87-35-0444Gekxcdwhvku/100 WBC (Bld)11.2 %20.5-60.0[facility] CenterH Auto (RBC) [Entitic mass]on 83-08-4122QQH (RBC) [Entitic mass]29.3 pg 26.7-34.0[facility] CenterMCHC Auto (RBC) [Mass/Vol]on 52-55-2085OJDG (RBC) [Mass/Vol]32.5 g/dL29.9-35.2FSelect Medical Specialty Hospital - TrumbullMCV Auto (RBC) [Entitic vol]on 96-41-9376BWC (RBC) [Entitic vol]90.1 fL 81.0-99.0[facility] CenterMonocytes Auto (Bld) [#/Vol]on 41-00-6902Drgwznrsy (Bld) [#/Vol]0.6 10 3/uL0.3-0.8[facility] CenterMonocytes/100 WBC Auto (Bld)on 62-85-3522Xxcfqnoyx/100 WBC (Bld)9.5 % 1.7-12.0[facility] CenterNeutrophils Auto (Bld) [#/Vol]on 24-08-7678Hobpitbylep (Bld) [#/Vol]5.2 10 3/uL1.4-6.5FSelect Medical Specialty Hospital - TrumbullNeutrophils/100 WBC Auto (Bld)on 58-86-7941Sdzmohkpygm/100 WBC (Bld)77.0 % 43.0-75.0[facility] CenterNo Panel Informationon 02-18-2024 Troponin I High Aaznzcasjye63.1 pg/mL4.0-51.3FSelect Medical Specialty Hospital - Trumbull Comment on above:CUT-OFF POINTS HAVE BEEN ESTABLISHED [...] AND CLINICAL INFORMATION.Eosinophils # (Auto) 0.1 10 3/uL0.0-0.7FSelect Medical Specialty Hospital - TrumbullImmature Granulocyte # (Auto) 0.05 10 3/uL0.00-0.03[facility] CenterPlatelet mean volume Auto (Bld) [Entitic vol]on 18-38-6477Zzkesejz mean volume (Bld) [Entitic vol]10.1 fL 9.5-13.5FSelect Medical Specialty Hospital - TrumbullPlatelets Auto (Bld) [#/Vol]on 09-36-0299Aiajglqrw (Bld) [#/Vol]255 10 3/iM078-137JhrkellorAdena Regional Medical CenterRBC Auto (Bld) [#/Vol]on 27-04-4257BCY (Bld) [#/Vol]3.52 10 6/uL4.20-5.40 [facility] Hospitalerum or plasma anion gap determinationon 36-50-3868Tpsfr gap [Moles/Vol]11.7 mmol/LFSelect Medical Specialty Hospital - Trumbull Basophils Auto (Bld) [#/Vol]on 74-07-6555Ezvyomyji (Bld) [#/Vol]0.1 10 3/uL 0.0-0.1FSelect Medical Specialty Hospital - TrumbullBasophils/100 WBC Auto (Bld)on 80-23-3457Ootabzafv/100 WBC (Bld)1.1 %0.2-2.0[facility] Cholesterol in LDL Calc [Mass/Vol]on 27-84-8758Awuylohrjuk in LDL [Mass/Vol] 113.6 mg/dLAdena Regional Medical CenterComment on above:<100 mg/dl NARYLDR550-858 mg/dl NEAR OR ABOVE SIJMQTG066-422 mg/dl BORDERLINE TEFJ646-827 mg/dl HIGH>190 mg/dl VERY HIGHCholesterol in VLDL Calc [Mass/Vol]on 02-02-2024 Cholesterol in VLDL [Mass/Vol]10.4 mg/dLAdena Regional Medical Center Eosinophils/100 WBC Auto (Bld)on 02-32-7132Tultjkolgvs/100 WBC (Bld)2.3 %0.9-7.0 [facility] CenterErythrocyte distribution width Auto (RBC) [Ratio]on 24-44-8636Bzuuqricngn distribution width (RBC) [Ratio]13.1 %11.0-15.0 [facility] CenterEstimated glomerular filtration rate (GFR) non- Americanon 57-15-2386LIN/1.73 sq M.predicted among non-blacks MDRD (S/P/Bld) [Vol rate/Area]34 mL/min/{1.73_m2}>=60[facility] CenterGlobulin Calc (S) [Mass/Vol]on 23-49-5906Mojvuugr (S) [Mass/Vol]3.0 g/dL [facility] CenterHematocrit Auto (Bld) [Volume fraction]on 73-26-2614Ygalvafryi (Bld) [Volume fraction]34.7 %36.0-48.0[facility] CenterHemoglobin [Mass/volume] in Bloodon 12-16-0537Muwjdycljj (Bld) [Mass/Vol]10.9 g/dL12.0-16.0[facility] CenterLaboratory - Chemistry and Chemistry - challengeon 90-67-0915Kvokqkc [Mass/Vol]3.4 g/dL 3.4-5.0[facility] CenterALP [Catalytic activity/Vol]52 U/L46-116 [facility] CenterALT [Catalytic activity/Vol]13 U/L14-59 [facility] CenterAST [Catalytic activity/Vol]14 U/L15-37 [facility] CenterBilirubin [Mass/Vol]0.3 mg/dL0.2-1.0[facility] CenterCalcium [Mass/Vol]9.3 mg/dL8.5-10.1FSelect Medical Specialty Hospital - TrumbullChloride [Moles/Vol]109 mmol/W23-693HtrxymscfAdena Regional Medical CenterCholesterol [Mass/Vol]169 mg/dL<=200[facility] Cholesterol in HDL [Mass/Vol]45 mg/tF80-90RkiosjcwiA[facility]a [facility] Medical Center Comment on above:> or =60 mg/dl - LOW CARDIOVASCULAR RISK<40 mg/dl - HIGH CARDIOVASCULAR RISKCO2 [Moles/Vol]29.8 mmol/L21.0-32.0[facility] CenterCreatinine [Mass/Vol]1.47 mg/dL0.55-1.02[facility] GFR/1.73 sq M.predicted MDRD (S/P/Bld) [Vol rate/Area]41 mL/min/{1.73_m2}>=60 [facility] CenterGlucose [Mass/Vol]104 mg/sW55-205HerlnfcwtAdena Regional Medical CenterPotassium [Moles/Vol]4.9 mmol/L3.5-5.1FSelect Medical Specialty Hospital - TrumbullProtein [Mass/Vol]6.4 g/dL6.4-8.2FSelect Medical Specialty Hospital - Trumbull Sodium [Moles/Vol]147 mmol/W308-764MpjwkdloyAdena Regional Medical CenterTriglyceride [Mass/Vol]52 mg/dL<=150[facility] CenterTS Qn3.613 m[IU]/L 0.358-3.740[facility] CenterUrea nitrogen [Mass/Vol]24.0 mg/dL 7.0-18.0[facility] CenterUrea nitrogen/Creatinine [Mass ratio] 16.3 mg/mgAdena Regional Medical CenterLaboratory - Hematology and Cell countson 61-28-4331Mkmcacwl granulocytes/100 WBC (Bld)0.4 %0.0-0.5FSelect Medical Specialty Hospital - TrumbullLeukocytes [#/volume] corrected for nucleated erythrocytes in Blood by Automated counon 59-48-9315QHW corrected for nucl RBC Auto (Bld) [#/Vol]5.6 10 3/uL4.0-11.0[facility] Lymphocytes Auto (Bld) [#/Vol]on 90-09-7427Phyisdofuyt (Bld) [#/Vol]1.1 10 3/uL 1.2-3.8[facility] CenterLymphocytes/100 WBC Auto (Bld)on 71-60-5368Thzrwlufkot/100 WBC (Bld)20.2 %20.5-60.0[facility] Auto (RBC) [Entitic mass]on 07-86-3499SFM (RBC) [Entitic mass]29.8 pg 26.7-34.0[facility] Auto (RBC) [Mass/Vol]on 95-06-5139DCFL (RBC) [Mass/Vol]31.4 g/dL29.9-35.2FSelect Medical Specialty Hospital - TrumbullMCV Auto (RBC) [Entitic vol]on 06-81-3869KWV (RBC) [Entitic vol]94.8 fL 81.0-99.0[facility] CenterMonocytes Auto (Bld) [#/Vol]on 42-79-7292Elddkuutj (Bld) [#/Vol]0.7 10 3/uL0.3-0.8[facility] CenterMonocytes/100 WBC Auto (Bld)on 20-96-8267Uepwhvrgn/100 WBC (Bld)11.7 % 1.7-12.0[facility] CenterNeutrophils Auto (Bld) [#/Vol]on 58-32-7464Ftbyrwktsge (Bld) [#/Vol]3.6 10 3/uL1.4-6.5FSelect Medical Specialty Hospital - TrumbullNeutrophils/100 WBC Auto (Bld)on 70-37-2166Ndzwpzfdlun/100 WBC (Bld)64.3 % 43.0-75.0[facility] CenterNo Panel Informationon 02-02-2024 Eosinophils # (Auto)0.1 10 3/uL0.0-0.7FSelect Medical Specialty Hospital - TrumbullImmature Granulocyte # (Auto)0.02 10 3/uL0.00-0.03[facility] Platelet mean volume Auto (Bld) [Entitic vol]on 20-06-6529Ndoocixr mean volume (Bld) [Entitic vol]10.6 fL9.5-13.5FSelect Medical Specialty Hospital - TrumbullPlatelets Auto (Bld) [#/Vol]on 50-49-4201Gzeivdvrq (Bld) [#/Vol]253 10 3/mI030-490 [facility] CenterRBC Auto (Bld) [#/Vol]on 98-81-3486PXT (Bld) [#/Vol]3.66 10 6/uL4.20-5.40[facility] Hospitalerum or plasma albumin/globulin mass ratioon 12-75-2612Ekwibfz/Globulin [Mass ratio]1.1 {ratio} [facility] Hospitalerum or plasma anion gap determinationon 30-50-6886Qerfc gap [Moles/Vol]13.1 mmol/LFOhioHealth Marion General Hospitalerum or plasma total cholesterol/high density lipoprotein (HDL) cholesterol mass rat on 65-24-6937Fnyipmibdgw.total/Cholesterol in HDL [Mass ratio]3.8 {ratio} [facility] CenterComment on above:3.3 - 4.4 LOW RISK4.4 - 7.1 AVERAGE RISK7.1 - 11.0 MODERATE RISK>11.0 HIGH RISKUA RANDOM W/MICROSCOPICon 48-56-1839Fazggzl (U)CLEARCLEARWoonsocket Cherry Other Color (U)DK YELLOWYELLOWWoonsocket Cherry Other Ketones Ql (U)NegativeNEGATIVE mg/dLWoonsocket Cherry Other Leukocyte esterase Test strip Ql (U)NegativeNEGATIVE [employer] Other pH (U)6.5 [pH]5.0-9.0[place] [employer] Other ua RANDOM W/MICROSCOPIC0-2 #/HPFAbnormalNONE SEEN #/HPFWoonsocket Cherry Other ua RANDOM W/MICROSCOPIC5-10 #/HPFAbnormal0-2 #/HPF [place] [employer] Other ua RANDOM W/MICROSCOPICsee noteNopike county memorial hospital Cherry Other ua RANDOM W/MICROSCOPIC1.0101.005-1.025[place] Other ua RANDOM W/MICROSCOPICNegativeNEGATIVECentrillion Biosciences Other ua RANDOM W/MICROSCOPICLARGEAbnormalNEGATIVEAQS Cherry Other ua RANDOM W/MICROSCOPICPositiveAbnormalNEG2NDNATUREAQS Cherry Other UA RANDOM W/MICROSCOPIC1.0 EU/dL0.2-1.0 EU/dLNopike county memorial hospital Cherry Other UA RANDOM W/MICROSCOPICTRACE #/HPFAbnormalNONE SEEN #/HPFWoonsocket Cherry Other UA RANDOM W/MICROSCOPICNONE SEENNONE SEENWoonsocket Cherry Other ua RANDOM W/MICROSCOPICRARE #/LPFNONE/RARE #/LPFWoonsocket Cherry Other UA RANDOM W/MICROSCOPICNone Seen #/HPFNone Seen #/HPF [facility] Other ua RANDOM W/MICROSCOPICNONE SEEN #/LPFNONE SEEN #/LPF [place] Other Urinalysis - DIPSTICKon 06-83-2174Ygmazyvzwh (U)clear [place] Other Bilirubin Ql (U)NegativeW[place] Cherry Other Color (U)light yellowWoonsocket Cherry Other Glucose Ql (U)NegativeWoonsocket Cherry Other Hemoglobin Ql (U)+++[employer] Other Ketones Ql (U)NegativeWoons[place] Other Leukocyte esterase Test strip Ql (U)NegativeWoonsocket [place] Other Nitrite Ql (U)NegativeW[place] Other pH (U)0.2 [pH][employer] Other Protein Ql (U)traceNopike county memorial hospital Cherry Other Specific gravity (U) [Rel density]1.005[place] Other Urobilinogen (U) [Mass/Vol]off chartNopike county memorial hospital Cherry Other Urinalysis - DIPSTICKNort Cherry Other esr Westergren method (Bld) [Velocity]on 45-67-7210YEN (Bld) [Velocity]119 mm/hHigh0 - 20 mm/hrMemorial Health System Marietta Memorial HospitalFERRITIN BLDon 91-15-4012Qhonbtmk [Mass/Vol]160.0 ng/mL14.7 - 205.1 ng/mLCleveland Melrose Area HospitalIron and Iron binding capacity panelon 28-01-1637Rhrz [Mass/Vol]45 ug/dL41 - 186 ug/dLMemorial Health System Marietta Memorial HospitalIron binding capacity [Mass/Vol]252 ug/dL232 - 386 ug/dL [facility] HospitalIron/TIBC [Molar ratio]17.9 %15.0 - 57.0 %[facility] metabolic 2000 panelon 41-56-9021Fckpk gap [Moles/Vol]10 mmol/L9 - 18 mmol/L [facility] HospitalCalcium [Mass/Vol]9.2 mg/dL8.5 - 10.2 mg/dLMemorial Health System [facility] Hospital Chloride [Moles/Vol]106 mmol/LHigh97 - 105 mmol/LCleveland ClinicCO2 [Moles/Vol] 27 mmol/L22 - 30 mmol/LCleveland Melrose Area HospitalCreatinine [Mass/Vol]1.09 mg/dLHigh0.58 - 0.96 mg/dLMemorial Health System Marietta Memorial HospitalEstimated Glomerular Filtration Rate51 mL/min/1.73m Low>=60 mL/min/1.73mCleveland Melrose Area HospitalGlucose [Mass/Vol]116 mg/nAIckw99 - 99 mg/dL [facility] HospitalPotassium [Moles/Vol]4.3 mmol/L3.7 - 5.1 mmol/LCleveland Melrose [facility] Hospital Sodium [Moles/Vol]143 mmol/L136 - 144 mmol/LCleveland Melrose Area HospitalUrea nitrogen [Mass/Vol]19 mg/dL7 - 21 mg/dLChildren's Hospital for Rehabilitation W Auto Differential panel (Bld)on 72-67-6895Gfcepniyo (Bld) [#/Vol]0.04 10*3/uL<0.11 k/uLMemorial Health System Marietta Memorial Hospital Basophils/100 WBC (Bld)0.8 %[facility] HospitalDifferential cell count method Nom (Bld)AutoCleveland ClinicEosinophils (Bld) [#/Vol]0.14 10*3/uL<0.46 k/uL [facility] HospitalEosinophils/100 WBC (Bld)2.9 %[facility] HospitalErythrocyte distribution width (RBC) [Ratio]13.6 %11.5 - 15.0 %[facility] HospitalHematocrit (Bld) [Volume fraction]28.8 %Low36.0 - 46.0 %[facility] HospitalHemoglobin (Bld) [Mass/Vol]9.2 g/dLLow11.5 - 15.5 g/dLMemorial Health System Marietta Memorial HospitalImmature granulocytes (Bld) [#/Vol]<0.10 k/uLMemorial Health System Marietta Memorial HospitalImmature granulocytes/100 WBC (Bld)0.4 % [facility] Memorial HospitalLymphocytes (Bld) [#/Vol]0.83 10*3/uLLow1.00 - 4.00 k/uL [facility] HospitalLymphocytes/100 WBC (Bld)17.4 %Marietta Memorial HospitalH (RBC) [Entitic mass]29.6 pg26.0 - 34.0 pgClevelBigfork Valley HospitalHC (RBC) [Mass/Vol]31.9 g/dL30.5 - 36.0 g/dLMarietta Memorial HospitalV (RBC) [Entitic vol]92.6 fL80.0 - 100.0 fLCleveland ClinicMonocytes (Bld) [#/Vol]0.40 10*3/uL<0.87 k/uLMemorial Health System Marietta Memorial Hospital Monocytes/100 WBC (Bld)8.4 %[facility] HospitalNeutrophils (Bld) [#/Vol]3.35 10*3/uL1.45 - 7.50 k/uLMemorial Health System Marietta Memorial HospitalNeutrophils/100 WBC (Bld)70.1 %[facility] HospitalNucleated RBC (Bld) [#/Vol]<0.01 k/uLMemorial Health System Marietta Memorial HospitalNucleated RBC/100 WBC (Bld) [Ratio]0.0 /100 WBCMemorial Health System Marietta Memorial HospitalPlatelet mean volume (Bld) [Entitic vol]10.2 fL9.0 - 12.7 fLCleveland ClinicPlatelets (Bld) [#/Vol]274 10*3/uL150 - 400 k/uLMemorial Health System Marietta Memorial HospitalRBC (Bld) [#/Vol]3.11 10*6/uLLow3.90 - 5.20 m/uL [facility] HospitalWBC (Bld) [#/Vol]4.78 10*3/uL3.70 - 11.00 k/uLMemorial Health System Marietta Memorial Hospital RETIC COUNTon 62-93-4725Ljfbtveeiidvy (Bld) [#/Vol]0.31212 10*3/uL0.018 - 0.100 M/uLMemorial Health System Marietta Memorial HospitalReticulocytes (Bld) [#/Vol]on 19-40-4537Ykpowlaqlwiqa/100 RBC (Bld)2.0 %0.4 - 2.0 %[facility] HospitalBasophils Auto (Bld) [#/Vol]Ordered By: Lj Ryan on 68-22-4691Tginmaorx (Bld) [#/Vol]0.0 10*3/uL0.0-0.2FSelect Medical Specialty Hospital - TrumbullBasophils/100 WBC Auto (Bld)Ordered By: Lj Ryan on 67-52-3358Bfgzkjwcm/100 WBC (Bld)0.7 %.[facility] CenterCalcium [Mass/volume] in Serum or PlasmaOrdered By: Lj Ryan on 38-40-7223Wwvhsqg [Mass/Vol]8.9 mg/dL8.6-10.3FSelect Medical Specialty Hospital - TrumbullCarbon dioxide, total [Moles/volume] in Serum or PlasmaOrdered By: Lj Ryan on 60-38-8039NU0 [Moles/Vol]30.5 mmol/L21.0-31.0[facility] CenterChloride [Moles/volume] in Serum or PlasmaOrdered By: Lj Ryan on 35-80-4990Hvcqqjdg [Moles/Vol]103 mmol/G56-460EabgrcuomAdena Regional Medical CenterCreatinine [Mass/volume] in Serum or PlasmaOrdered By: Lj Ryan on 42-99-3852Zggkvptcbg [Mass/Vol]1.37 mg/dL0.60-1.20[facility] CenterEosinophils Auto (Bld) [#/Vol]Ordered By: Lj Ryan on 00-59-6825Telrpeappsz (Bld) [#/Vol]0.1 10*3/uL0.0-0.45[facility] CenterEosinophils/100 WBC Auto (Bld) Ordered By: Lj Ryan on 78-04-7348Jnepnrzzzsi/100 WBC (Bld)1.9 %.[facility] CenterErythrocyte distribution width Auto (RBC) [Ratio]Ordered By: Lj Ryan on 01-20-6969Qkhfzmmanbn distribution width (RBC) [Ratio]14.1 % 11.9-15.3FSelect Medical Specialty Hospital - TrumbullGlucose [Mass/volume] in Serum or PlasmaOrdered By: Lj Ryan on 48-13-1278Bjrgumo [Mass/Vol]94 mg/hI41-302 [facility] CenterComment on above:ADA recommended reference rangeRandom Glucose Reference Range is dependent on time and content of last meal. Glucose of more than 200 mg/dL in a nonstressed, ambulatory subject supports the diagnosisof Diabetes Mellitus.Hematocrit Auto (Bld) [Volume fraction]Ordered By: Lj Ryan on 99-38-3209Ricittkpsz (Bld) [Volume fraction]28.2 %34.0-46.4FSelect Medical Specialty Hospital - TrumbullHemoglobin [Mass/volume] in BloodOrdered By: Lj Ryan on 89-33-0820Hgfefsufiz (Bld) [Mass/Vol]9.7 g/dL11.8-15.4FSelect Medical Specialty Hospital - TrumbullLeukocytes [#/volume] corrected for nucleated erythrocytes in Blood by Automated coun Ordered By: Lj Ryan on 26-69-9820RNF corrected for nucl RBC Auto (Bld) [#/Vol]6.0 10*3/uL3.8-11.6FSelect Medical Specialty Hospital - TrumbullLymphocytes Auto (Bld) [#/Vol]Ordered By: Lj Ryan on 26-77-0528Nvpmtiwpqmq (Bld) [#/Vol]0.9 10*3/uL1.00-4.8[facility] CenterLymphocytes/100 WBC Auto (Bld) Ordered By: Lj Ryan on 18-07-2465Kxsneqwpltz/100 WBC (Bld)15.1 %.[facility] CenterH Auto (RBC) [Entitic mass]Ordered By: Lj Ryan on 25-09-4611YQQ (RBC) [Entitic mass]30.2 pg24.7-34.3FSelect Medical Specialty Hospital - TrumbullMCHC Auto (RBC) [Mass/Vol]Ordered By: Lj Ryan on 96-93-9916JAOY (RBC) [Mass/Vol]34.4 g/dL32.0-35.0[facility] CenterMCV Auto (RBC) [Entitic vol]Ordered By: Lj Ryan on 28-35-2227WUB (RBC) [Entitic vol]87.7 vD45-118TrzhqpqhlAdena Regional Medical CenterMagnesium [Mass/volume] in Serum or PlasmaOrdered By: Lj Ryan on 42-62-0032Eppnrmdhn [Mass/Vol]2.1 mg/dL1.9-2.7 [facility] CenterMonocytes Auto (Bld) [#/Vol]Ordered By: Lj Ryan on 24-98-0623Dcvazjklc (Bld) [#/Vol]0.5 10*3/uL0.0-0.8[facility] CenterMonocytes/100 WBC Auto (Bld)Ordered By: Lj Ryan on 05-18-2023 Monocytes/100 WBC (Bld)8.7 %.[facility] CenterNeutrophils Auto (Bld) [#/Vol]Ordered By: Lj Ryan on 32-86-8844Yxozokzcqha (Bld) [#/Vol]4.4 10*3/uL1.8-7.7FSelect Medical Specialty Hospital - TrumbullNeutrophils/100 WBC Auto (Bld) Ordered By: Lj Ryan on 44-03-4955Ydipljbjjwb/100 WBC (Bld)73.6 %.[facility] CenterNo Panel InformationOrdered By: Lj Ryan on 98-02-9945Xlwxsjjnk GFR (CKD-EPI)39.034 mL/MinAdena Regional Medical Center Pharmacy Creatinine Clearance (Chem38.04[facility] Nucleated erythrocytes [Presence] in Blood by Automated countOrdered By: Lj Ryan on 85-65-8410Nnojnahno RBC Auto Ql (Bld)0.1 /100{WBC}0-0.5FSelect Medical Specialty Hospital - TrumbullPhosphate [Mass/volume] in Serum or PlasmaOrdered By: Lj Ryan on 51-71-4814Ilnapkwsd [Mass/Vol]5.3 mg/dL3.7-7.2FSelect Medical Specialty Hospital - TrumbullPlatelet mean volume Auto (Bld) [Entitic vol]Ordered By: Lj Ryan on 31-28-5142Fnfzmduu mean volume (Bld) [Entitic vol]7.8 fL6.3-10.7 [facility] CenterPlatelets Auto (Bld) [#/Vol]Ordered By: Lj Ryan on 08-98-4597Juloytlan (Bld) [#/Vol]314 10*3/gZ151-860PjxdjgwqtAdena Regional Medical CenterPotassium [Moles/volume] in Serum or PlasmaOrdered By: Lj Ryan on 53-63-2600Jiyhsecfl [Moles/Vol]4.0 mmol/L3.5-5.1FSelect Medical Specialty Hospital - TrumbullRBC Auto (Bld) [#/Vol]Ordered By: Lj Ryan on 69-64-7989OHZ (Bld) [#/Vol]3.21 10*6/uL3.60-5.00[facility] Valley Hospitalerum or plasma anion gap determinationOrdered By: Lj Ryan on 09-58-0537Germy gap [Moles/Vol]12.5 mmol/L6.0-15.0[facility] Hospitalodium [Moles/volume] in Serum or PlasmaOrdered By: Lj Ryan on 44-55-5138Whcise [Moles/Vol]142 mmol/F622-571RhstwmzwbAdena Regional Medical CenterUrea nitrogen [Mass/volume] in Serum or PlasmaOrdered By: Lj Ryan on 31-91-5052Dnic nitrogen [Mass/Vol]21 mg/dL7-25[facility] CenterWBC Auto (Bld) [#/Vol]Ordered By: Lj Ryan on 40-45-2058XEL (Bld) [#/Vol]6.0 10*3/uL 3.8-11.6FSelect Medical Specialty Hospital - TrumbullAlanine aminotransferase [Enzymatic activity/volume] in Serum or PlasmaOrdered By: Fernando Ch on 48-65-0422MNJ [Catalytic activity/Vol]14 U/L7-52[facility] CenterAlbumin [Mass/volume] in Serum or Plasma by Bromocresol green (BCG) dye binding metho Ordered By: Fernando Ch on 83-34-2693Qnfcbcn BCG dye [Mass/Vol]4.0 g/dL3.5-5.7 [facility] CenterAlkaline phosphatase [Enzymatic activity/volume] in Serum or PlasmaOrdered By: Fernando Ch on 73-69-5414JMF [Catalytic activity/Vol]44 U/A41-024QlucpxvggAdena Regional Medical CenterAspartate aminotransferase [Enzymatic activity/volume] in Serum or PlasmaOrdered By: Fernando Ch on 77-40-6892ZKL [Catalytic activity/Vol]16 U/V47-90OxbowgalpAdena Regional Medical CenterBilirubin.total [Mass/volume] in Serum or PlasmaOrdered By: Fernando Ch on 29-45-8512Nwglgzdvb [Mass/Vol]0.7 mg/dL0.3-1.0[facility] CenterCreatine kinase [Enzymatic activity/volume] in Serum or Plasma Ordered By: Fernando Ch on 54-06-6737XW [Catalytic activity/Vol]49 U/L30-223 [facility] CenterGlobulin Calc (S) [Mass/Vol]Ordered By: Fernando Ch on 93-29-1791Kzqnxram (S) [Mass/Vol]2.9 g/dLAdena Regional Medical CenterLaboratory - CoagulationOrdered By: Fernando Ch on 52-22-1613IB Coag (PPP) [Time]12.5 s9.0-12.9[facility] CenterMonocyte distribution width [Entitic volume] in Blood by AutomatedOrdered By: Fernando Ch on 76-26-6334Hvhayble distribution width Auto (Bld) [Entitic vol]22.37 %0.00-20.00 [facility] CenterComment on above:For adults in ED, MDW > 20.0 may be associated with a higher risk of sepsis during the first 12 hrs of hospital admissionNatriuretic peptide B [Mass/Vol]Ordered By: Fernando Ch on 27-05-6085Vxsyrallmfp peptide B (Bld) [Mass/Vol]450.0 pg/mL5-100[facility] CenterPlatelet poor plasma international normalized ratio (INR) by coagulation assay (relatOrdered By: Fernando Ch on 93-27-0249KJA Coag (PPP) [Relative time]1.1 {INR}[facility] CenterComment on above: INR Therapeutic [...] By: Fernando Ch on 05-17-2023 Protein [Mass/Vol]6.9 g/dL6.4-8.9[facility] Hospitalerum or plasma albumin/globulin mass ratioOrdered By: Fernando Ch on 05-17-2023 Albumin/Globulin [Mass ratio]1.4 {ratio}[facility] Troponin I.cardiac [Mass/volume] in Serum or Plasma by Detection limit <= 0.01 ng/Ordered By: Fernando Ch on 42-21-0666Fkhesgls I.cardiac DL <= 0.01 ng/mL [Mass/Vol]10.2 pg/mL0.0-15.0[facility] CenterActivated partial thromboplastin time (aPTT) in platelet poor plasma by coagulation aOrdered By: Jonna Perry on 53-73-9231wJZI Coag (PPP) [Time]32.0 s25.1-36.5FSelect Medical Specialty Hospital - TrumbullBand form neutrophils/100 WBC Manual cnt (Bld)Ordered By: Jonna Perry on 13-54-7052Axlu form neutrophils/100 WBC (Bld)4 %0-5FSelect Medical Specialty Hospital - TrumbullBasophils Auto (Bld) [#/Vol]Ordered By: Jonna Perry on 03-08-2023 Basophils (Bld) [#/Vol]N/[facility] HospitalBasophils/100 WBC Auto (Bld)Ordered By: Jonna Perry on 17-79-4248Fupetkjxz/100 WBC (Bld)NAultman Orrville HospitalBasophils/100 WBC Manual cnt (Bld)Ordered By: Jonna Perry on 35-03-6419Kyzufnewy/100 WBC (Bld)0 %0-2FSelect Medical Specialty Hospital - Trumbull Carbon dioxide, total [Moles/volume] in Serum or PlasmaOrdered By: Jonna Perry on 02-97-2954VF0 [Moles/Vol]33.1 mmol/L21.0-31.0[facility] Chloride [Moles/volume] in Serum or PlasmaOrdered By: Jonna Perry on 03-08-2023 Chloride [Moles/Vol]104 mmol/K78-790EjwamnvsqAdena Regional Medical CenterCholesterol [Mass/volume] in Serum or PlasmaOrdered By: Jonna Perry on 96-74-6683Zyohfiijqck [Mass/Vol]151 mg/uN179-248ArsbalikpAdena Regional Medical CenterComment on above:Chol less than 200 mg/dl low riskChol 201-239 mg/dl borderline riskChol 240 mg/dl and greater high riskCholesterol in LDL Calc [Mass/Vol]Ordered By: Jonna Perry on 95-32-9054Roigvuuwrxh in LDL [Mass/Vol]100 mg/dL0-100[facility] CenterComment on above:LDL ATP III CLASSIFICATIONLDL less than 100 mg/dL OptimalLDL 100-129 mg/dL Near or above itfrzpjYZX734-572 mg/dL Borderline highLDL 160-189 mg/dL HighLDL greater than 189 mg/dL Very highCholesterol in VLDL Calc [Mass/Vol]Ordered By: Jonna Perry on 19-65-6903Hnmjxmniane in VLDL [Mass/Vol]13 mg/dLAdena Regional Medical CenterCreatinine [Mass/volume] in Serum or PlasmaOrdered By: Jonna Perry on 74-50-7903Wixljiwgog [Mass/Vol]1.14 mg/dL0.60-1.20[facility] CenterEosinophils Auto (Bld) [#/Vol] Ordered By: Jonna Perry on 09-57-5317Sammnnebwoq (Bld) [#/Vol]N/[facility] HospitalEosinophils/100 WBC Auto (Bld)Ordered By: Jonna Perry on 89-89-3212Vfqxlucraju/100 WBC (Bld)N/[facility] Eosinophils/100 WBC Manual cnt (Bld)Ordered By: Jonna Perry on 03-08-2023 Eosinophils/100 WBC (Bld)2 %1-3FSelect Medical Specialty Hospital - TrumbullErythrocyte distribution width Auto (RBC) [Ratio]Ordered By: Jonna Perry on 03-08-2023 Erythrocyte distribution width (RBC) [Ratio]14.1 %11.9-15.3FSelect Medical Specialty Hospital - TrumbullHematocrit Auto (Bld) [Volume fraction]Ordered By: Jonna Perry on 42-70-8377Rhauyjgnjx (Bld) [Volume fraction]30.7 %34.0-46.4FSelect Medical Specialty Hospital - TrumbullHemoglobin [Mass/volume] in BloodOrdered By: Jonna Perry on 66-20-0559Zdhgvpdpgd (Bld) [Mass/Vol]10.3 g/dL11.8-15.4FSelect Medical Specialty Hospital - TrumbullLaboratory - Chemistry and Chemistry - challengeon 03-08-2023 Cholesterol [Mass/Vol]151\S\295Ujdkui975-979EP-PddozLake City Hospital And Clinic 250 DO Work Phone: Comment on above:Chol less than 200 mg/dl low risk Chol 201-239 mg/dl borderline risk Chol 240 mg/dl and greater high risk Cholesterol in LDL [Mass/Vol]100\S\676Cbrzuc0-248IV-NxieuLake City Hospital And Clinic 250 DO Work Phone: Comment on above:LDL ATP III CLASSIFICATION LDL less than 100 mg/dL Optimal LDL 100-129 mg/dL Near or above optimal LDL 130-159 mg/dL Borderline high LDL 160-189 mg/dL High LDL greater than 189 mg/dL Very high Laboratory - CoagulationOrdered By: Jonna Perry on 61-79-1108WR Coag (PPP) [Time] 12.2 s9.0-12.9[facility] CenterLeukocytes [#/volume] corrected for nucleated erythrocytes in Blood by Automated counOrdered By: Jonna Perry on 38-84-5165MKD corrected for nucl RBC Auto (Bld) [#/Vol]6.2 10*3/uL3.8-11.6 [facility] CenterLymphocytes Auto (Bld) [#/Vol]Ordered By: Jonna Perry on 91-05-7918Sronpsyrlge (Bld) [#/Vol]N/[facility] HospitalLymphocytes/100 WBC Auto (Bld)Ordered By: Jonna Perry on 03-08-2023 Lymphocytes/100 WBC (Bld)N/[facility] HospitalLymphocytes/100 WBC Manual cnt (Bld)Ordered By: Jonna Perry on 24-18-2819Rnesrtmsniy/100 WBC (Bld)16 %18-42[facility] CenterH Auto (RBC) [Entitic mass]Ordered By: Jonna Perry on 77-66-1311ZEK (RBC) [Entitic mass]29.0 pg24.7-34.3FSelect Medical Specialty Hospital - TrumbullMCHC Auto (RBC) [Mass/Vol]Ordered By: Jonna Perry on 82-46-2427UGVK (RBC) [Mass/Vol]33.6 g/dL32.0-35.0[facility] CenterMCV Auto (RBC) [Entitic vol]Ordered By: Jonna Perry on 47-13-1018UYM (RBC) [Entitic vol]86.2 cE95-155BvntiiugmAdena Regional Medical CenterMetamyelocytes/100 WBC Manual cnt (Bld)Ordered By: Jonna Perry on 47-53-2905Hztzrpeldvvcax/100 WBC (Bld)1 %0-0[facility] CenterMonocytes Auto (Bld) [#/Vol]Ordered By: Jonna Perry on 37-62-3211Nawfppdrx (Bld) [#/Vol]N/[facility] HospitalMonocytes/100 WBC Auto (Bld)Ordered By: Jonna Perry on 03-08-2023 Monocytes/100 WBC (Bld)N/[facility] HospitalMonocytes/100 WBC Manual cnt (Bld)Ordered By: Jonna Perry on 54-93-9894Zlquyprbo/100 WBC (Bld)3 % -[facility] Medical CenterNeutrophils Auto (Bld) [#/Vol]Ordered By: Jonna Perry on 26-13-2893Riiclhpxime (Bld) [#/Vol]N/[facility] HospitalNeutrophils/100 WBC Auto (Bld)Ordered By: Jonna Perry on 03-08-2023 Neutrophils/100 WBC (Bld)N/[facility] HospitalNo Panel InformationOrdered By: Jonna Perry on 37-46-9703Femxvxgwh GFR (CKD-EPI)48.665 mL/MinAdena Regional Medical CenterPharmacy Creatinine Clearance (ChemN/A [facility] CenterNo Panel Informationon 45-15-406689.0\S\32.0 Smhant36.1-36.5MP-[facility] 250 DO Work Phone: Comment on above:PERFORMED BY:[place] [id number] [address] [place], [place] [phone] MEDICAL DIRECTORJAMAAL MO M.D.1.1\S\1.1NormalMP-[facility] 250 DO Work Phone: Comment on above:INR [...] patients with mechanical heart valves: 3 - 4.512.2\S\12.3Djpppj7.0-12.9MP-[facility] 250 DO Work Phone: [phone]\S\9.7Xxprdj4.3-10.7MP-[facility] 250 DO Work Phone: [phone]\S\33.1above high plvavczke51.0-31.0MP-[facility] 250 DO Work Phone: [phone]\S\208Rhbxck88-834RM-Vtdpb [facility] 250 DO Work Phone: [phone]\S\5.4Nobnli8.5-5.1MP-[facility] 250 DO Work Phone: [phone]\S\227Zodcox974-478LK-Ezrju [facility] 250 DO Work Phone: [phone]\S\31Xiywym5-99RT-Ouack [facility] 250 DO Work Phone: [phone]\S\48.665NormalMP-[facility] 250 DO Work Phone: [phone]\S\1.51Klyzml2.60-1.20MP-[facility] 250 DO Work Phone: [phone]\S\4.0Normal<5.0MP-[facility] 250 DO Work Phone: Comment on above:PERFORMED BY:[place] [id number] [place], [place] [phone] MEDICAL DIRECTORJAMAAL MO M.D.13\S\13NormalMP-[facility] 250 DO Work Phone: [phone]\S\83Jwxrkn9-618CE-Mzfpf [facility] 250 DO Work Phone: Comment on above:TRIG ATP III CLASSIFICATION TRIG less than 150 mg/dL Normal TRIG 150-199 mg/dL Borderline high YHFD999-927 mg/dL High TRIG greater than 500 mg/dL Very high Standard traceable to the Center for Disease Conrtrol and Prevention (CDC) test method.38\S\78Dabkeu31-83IS-Rgxwr [facility] 250 DO Work Phone: Comment on above:HDL CHOL ATP-III CLASSIFICATION Cardiovascular Risk HDL > or equal to 60 mg/dL LOW HDL < 40 mg/dL HIGH74\S\74 above high tyecguvfj15-02ZF-Dyarc [facility] 250 DO Work Phone: [phone]\S\188Xdgxgz514-290OV-Tanwj [facility] 250 DO Work Phone: [phone]\S\14.9Csuabh53.9-15.3MP-[facility] 250 DO Work Phone: [phone]\S\33.4Iveupg20.0-35.0MP-[facility] 250 DO Work Phone: [phone]\S\29.4Fgjglq67.7-34.3MP-[facility] 250 DO Work Phone: [phone]\S\1above high deaxcqtds8-1LW-Ebidr [facility] 250 DO Work Phone: [phone]\S\9Btympn0-8SP-Dzxce [facility] 250 DO Work Phone: [phone]\S\0Apehah5-9OA-Avdfl [facility] 250 DO Work Phone: [phone]\S\1Wywgsk6-29SU-Ewiap [facility] 250 DO Work Phone: [phone]\S\16below low xurldfkts59-15QG-Mtjxo [facility] 250 DO Work Phone: [phone]\S\7Cjzthz0-8YU-Qcxnt [facility] 250 DO Work Phone: IyozluJwwtteME-Piuep [facility] 250 DO Work Phone: [phone] on above:PERFORMED BY:[place] [id number] [place], [place] [phone] MEDICAL DIRECTORJAMAAL MO M.D.NormalNormalNormalMP-[facility] 250 DO Work Phone: [phone]\S\86.5Yisucw43-276MZ-Hqrqd [facility] 250 DO Work Phone: [phone]\S\30.7below low jdxiexnnt23.0-46.4MP-[facility] 250 DO Work Phone: [phone]\S\10.3below low wvcymvtgm00.8-15.4MP-[facility] 250 DO Work Phone: [phone]\S\3.56below low threshold3.60-5.00MP-[facility] 250 DO Work Phone: [phone]\S\8.3Gfhbjm4.8-11.6MP-[facility] 250 DO Work Phone: [phone])[phone]\S\6.1Shkaiz6.8-11.6MP-[facility] 250 DO Work Phone: Nucleated erythrocytes [Presence] in Blood by Automated countOrdered By: Jonna Perry on 82-70-9614Ubmicobuw RBC Auto Ql (Bld)N/A [facility] CenterOvalocyte detectionOrdered By: Jonna Perry on 48-84-6587Krssggtsaq LM Ql (Bld)SlightAdena Regional Medical CenterPlatelet adequacy [Presence] in Blood by Light microscopyOrdered By: Jonna Perry on 12-90-3061Zkuplfhpe LM Ql (Bld)NormalNoWVUMedicine [facility] Hospital Platelet mean volume Auto (Bld) [Entitic vol]Ordered By: Jonna Perry on 03-08-2023 Platelet mean volume (Bld) [Entitic vol]9.0 fL6.3-10.7FSelect Medical Specialty Hospital - TrumbullPlatelet morphology finding [Identifier] in BloodOrdered By: Jonna Perry on 57-65-3607Kpyrfktc morphology finding Nom (Bld)N/AFSelect Medical Specialty Hospital - TrumbullPlatelet poor plasma international normalized ratio (INR) by coagulation assay (relatOrdered By: Jonna Perry on 13-38-8525FJH Coag (PPP) [Relative time]1.1 {INR}[facility] CenterComment on above:INR Therapeutic Range [...] Auto (Bld) [#/Vol]Ordered By: Jonna Perry on 15-23-5604Ifukpruri (Bld) [#/Vol]276 10*3/cW298-522WtmvwfuoyAdena Regional Medical CenterPlatelets Large [Presence] in Blood by Light microscopyOrdered By: Jonna Perry on 46-69-7177Bssdptlwz Large LM Ql (Bld)[facility] SystemPoikilocytosis [Presence] in Blood by Light microscopyOrdered By: Jonna Perry on 43-98-3725Dqqaqtoexvfpjk LM Ql (Bld)[facility] SystemPotassium [Moles/volume] in Serum or PlasmaOrdered By: Jonna Perry on 29-59-4981Wahwcvffw [Moles/Vol]5.1 mmol/L 3.5-5.1FSelect Medical Specialty Hospital - TrumbullRBC Auto (Bld) [#/Vol]Ordered By: Jonna Perry on 62-53-9038RYU (Bld) [#/Vol]3.56 10*6/uL3.60-5.00[facility] Medical CenterRB morphologyOrdered By: Jonna Perry on 72-67-3220NEQ morphology finding Nom (Bld)N/AFOhioHealth Marion General Hospitalegmented neutrophils/100 WBC Manual cnt (Bld)Ordered By: Jonna Perry on 82-37-8944Nlhtjipfc neutrophils/100 WBC (Bld)74 %50-70Ohio Valley Hospitalerum or plasma anion gap determinationOrdered By: Jonna Perry on 95-61-8768Turcj gap [Moles/Vol]9.0 mmol/L 6.0-15.0Ohio Valley Hospitalerum or plasma high density lipoprotein (HDL) cholesterol measurementOrdered By: Jonna Perry on 03-08-2023 Cholesterol in HDL [Mass/Vol]38 mg/bC56-98YikenlwpzAdena Regional Medical Center Comment on above:HDL CHOL ATP-III CLASSIFICATION Cardiovascular RiskHDL > or equal to 60 mg/dL LOWHDL < 40 mg/dL HIGHSerum or plasma total cholesterol/high density lipoprotein (HDL) cholesterol mass ratOrdered By: Jonna Perry on 67-78-2435Vjjjzfxuxqh.total/Cholesterol in HDL [Mass ratio]4.0 {ratio}<5.0 [facility] Hospitalodium [Moles/volume] in Serum or PlasmaOrdered By: Jonna Perry on 17-37-2733Esyotp [Moles/Vol]141 mmol/M544-013EwyjcqcbaAdena Regional Medical CenterTriglyceride [Mass/volume] in Serum or PlasmaOrdered By: Jonna Perry on 24-69-1651Jhtkzhczzysm [Mass/Vol]67 mg/dL0-149A[facility] Medical CenterComment on above:TRIG ATP III CLASSIFICATIONTRIG less than 150 mg/dL NormalTRIG 150-199 mg/dL Borderline highTRIG 200-500 mg/dL High TRIG greater than 500 mg/dL Very highStandard traceable to the Center for Disease Co nrtrol and Prevention (CDC) test method.Urea nitrogen [Mass/volume] in Serum or PlasmaOrdered By: Jonna Perry on 15-29-4838Sany nitrogen [Mass/Vol]21 mg/dL7-25 [facility] CenterWBC Auto (Bld) [#/Vol]Ordered By: Jonna Perry on 21-72-7519MFU (Bld) [#/Vol]8.6 10*3/uL3.8-11.6FSelect Medical Specialty Hospital - Trumbull Office Visit (Cardiology)on 36-78-2417Bmvacm-up visitDiagnoses/Problems Assessed Class 1 obesity with body [...] associated with accelerated hypertension, was admitted to [place] briefly, diuresed approximately 14 pounds with diuretics. [...] negative for complaint. Vitals Vital Signs Recorded: 91Xuf0392 10:14AMRecorded: 42Mpl6476 10:04AM Ovkbaaub650, RUE, Bjuxjsw91 (more content not included)...NormalUH [facility]works Tobacco Screening.on 54-84-9395Eignt depression screening assessmentNoLifePoint Health Wis.dm 250 DO Work Phone: Fall risk assessmenta) No falls within the last year [facility] 250 DO Work Phone: Tobacco use status CPHSb) NoMP-[facility] [place] 250 DO Work Phone: cbc AUTO DIFFon 72-84-8338VWFQ #0.0 103/ulNormal 0.0-0.1The [facility] HospitalComment on above:Performed By: #### CBC #### [facility] [address] [address] [address] Jose David ShanksBasophils/100 WBC (Bld)0.5 %Normal0.2-2.0[facility] Comment on above:Performed By: #### CBC #### [facility] [address] [place] [address] Dr. Jose David Devries #0.1 103/ulNormal0.0-0.7The [facility] HospitalComment on above: Performed By: #### CBC #### [facility] [address] [place] [address] Dr. Jose David Vickersosinophils/100 WBC (Bld)1.2 %Normal0.9-7.0[facility] Comment on above:Performed By: #### CBC #### [facility] [address] [place] [address] Dr. Jose David Vickersrythrocyte distribution width (RBC) [Ratio]13.2 %Nevgxy60.0-15.0 [facility] HospitalComment on above:Performed By: #### CBC #### [facility] [address] [place] [address] Dr. Jose David ShanksHematocrit (Bld) [Volume fraction]33.9 %Critically low36.0-48.0 [facility] HospitalComment on above:Performed By: #### CBC #### [facility] [address] [place] [address] Dr. Jose David ShanksHemoglobin (Bld) [Mass/Vol]11.0 g/dLCritically low12.0-16.0[facility] HospitalComment on above:Performed By: #### CBC #### [facility] [address] [place] [address] Dr. Jose David Guerrero #0.03 10e3/ulNormal0.00-0.03The [facility] HospitalComment on above:Performed By: #### CBC #### [facility] [address] [address] [address] Jose David Guerrero %0.5 %Normal0.0-0.5The [facility] HospitalComment on above: Performed By: #### CBC #### [facility] [address] [address] [address] Jose David Rolon #0.8 103/ulCritically low1.2-3.8The [facility] Comment on above:Performed By: #### CBC #### [facility] [address] [place] [address] Dr. Jose David Anthonyhocytes/100 WBC (Bld)13.7 %Critically low20.5-60.0The [facility] HospitalComment on above:Performed By: #### CBC #### [facility] [address] [place] [address] Dr. Jose David Donovan DIFF REQNONormalThe [facility] HospitalComment on above: Performed By: #### CBC #### [facility] [address] [place] [address] Dr. Jose David Andino (RBC) [Entitic mass]28.9 ykYaihgg27.7-34.0The [facility] HospitalComment on above:Performed By: #### CBC #### [facility] [address] [place] [address] Dr. Jose David Tunrer (RBC) [Mass/Vol]32.4 g/pIEkgyer32.9-35.2The [facility] HospitalComment on above:Performed By: #### CBC #### [facility] [address] [place] [address] Dr. Jose David Moctezuma (RBC) [Entitic vol]89.0 lFJxzydi13.0-99.0The [facility] HospitalComment on above:Performed By: #### CBC #### [facility] [address] [place] [address] Dr. Yilan ChangMONO #0.5 103/ulNormal0.3-0.8The [facility] HospitalComment on above:Performed By: #### CBC #### [facility] [address] [place] [address] Dr. Jose David Olivoocytes/100 WBC (Bld)8.2 %Normal1.7-12.0The [facility] Comment on above:Performed By: #### CBC #### [facility] [address] [place] [address] Dr. Jose David Mix #4.3 103/ulNormal1.4-6.5The [facility] HospitalComment on above:Performed By: #### CBC #### [facility] [address] [place] [address] Dr. Jose David Herndonutrophils/100 WBC (Bld)75.9 %Critically high43.0-75.0The [facility] HospitalComment on above:Performed By: #### CBC #### [facility] [address] [place] [address] Dr. Jose David Carmichaellet mean volume (Bld) [Entitic vol]10.1 fLNormal9.5-13.5The [facility] HospitalComment on above:Performed By: #### CBC #### [facility] [address] [place] [address] Dr. Jose David WardT279 103/bfFbjyuo752-642Wtk [facility] HospitalComment on above: Performed By: #### CBC #### [facility] [address] [place] [address] Dr. Jose David ShanksRBC3.81 106/ulCritically low4.20-5.40The [facility] HospitalComment on above:Performed By: #### CBC #### [facility] [address] [place] [address] Dr. Jose David ShanksWBC5.7 103/ulNormal4.0-11.0The [facility] HospitalComment on above: Performed By: #### CBC #### [facility] [address] [place] [address] Dr. Jose David Sullivan 22-21-1332Vlbhawul [Mass/Vol]180.0 ng/mLNormal 8.0-252.0The [facility] HospitalComment on above:Performed By: #### CBC #### [facility] [address] [address] [address] Jose David Helm AND TIBCon 03-01-2023% USNNRTAHRN26.6 %NormalThe [facility] HospitalComment on above:Performed By: #### CBC #### [facility] [address] [address] [address] Jose David Helm [Mass/Vol]61.0 ug/eTYpwkph95.0-170.0The [facility] Comment on above:Performed By: #### CBC #### [facility] [address] [place] [address] Dr. Jose David FangC YLWIQW540.0 ug/xKUsvihm417.0-450.0The [facility] Comment on above:Performed By: #### CBC #### [facility] [address] [place] [address] Dr. Jose David Villanueva STRESS/REST MULTIon 62-35-2463IA STRESS/REST MULTIPatient: LASHAUN JOAQUIN Exam Date: 03/01/2023 : 1940 Gender:F Ordering : DR NATHAN HATHAWAY D.O. Admission #: [id number] Family : Order #: [id number] CLICK HERE TO VIEW EXAM RADIOLOGY REPORT [...] STUDY: PERFUSION DEFECT: LOCATION: Mid-anterior. Apical anterior. [place]. SIZE: Medium (3-4 segments). SEVERITY: Moderate. TYPE: [...] by: William Dominguez MD on 03/01/2023 at 14:54[facility] Rutan HospitalPROF CHEM 8 (BAS METB)on 21-25-8613Mcudr gap [Moles/Vol]8.8 mmol/LNormalVan Wert County HospitalComment on above:Performed By: #### LACT #### [facility] [address] [place] [address] Dr. Jose David ShanksCalcium [Mass/Vol]9.0 mg/dLNormal8.5-10.1[facility] Comment on above:Performed By: #### LACT #### [facility] [address] [place] [address] Dr. Jose David ShanksChloride [Moles/Vol]106 mmol/BWezuvs48-713XyoVan Wert County Hospital Comment on above:Performed By: #### LACT #### [facility] [address] [place] [address] Dr. Jose David ShanksCO2 [Moles/Vol]31.0 mmol/ERecpzx92.0-32.0[facility] Comment on above:Performed By: #### LACT #### [facility] [address] [place] [address] Dr. Jose David ShanksCreatinine [Mass/Vol]1.18 mg/dLCritically high0.55-1.02[facility] HospitalComment on above:Performed By: #### LACT #### [facility] [address] [place] [address] Dr. Main ChangEGFR-AF TXWZRGVO57 mL/min/1.22o7Ndpxpmgagf low>=60The [facility] HospitalComment on above:Performed By: #### LACT #### [facility] [address] [address] [address] Jose David VickersGFR-NON AF XVMXKXHS62 mL/min/1.47r1Rahaqmblwk low>=60The [facility] HospitalComment on above:Performed By: #### LACT #### [facility] [address] [address] [address] Jose David ShanksGlucose [Mass/Vol]98 mg/xIUcjdag77-488Hai [facility] Comment on above:Performed By: #### LACT #### [facility] [address] [address] [address] Jose David ShanksPotassium [Moles/Vol]4.8 mmol/LNormal3.5-5.1[facility] Comment on above:Performed By: #### LACT #### [facility] [address] [address] [address] Jose David ShanksSodium [Moles/Vol]141 mmol/ZDmmyun765-315QocVan Wert County Hospital Comment on above:Performed By: #### LACT #### [facility] [address] [address] [address] Jose David ShanksUrea nitrogen [Mass/Vol]16.0 mg/dLNormal7.0-18.0[facility] HospitalComment on above:Performed By: #### LACT #### [facility] [address] [address] [address] Jose David Rubio nitrogen/Creatinine [Mass ratio]13.6 mg/mgNormalThe [facility] HospitalComment on above:Performed By: #### LACT #### [facility] [address] [address] [address] Jose David ShanksRETICULOCYTEon 02-06-3759XATJZ4.51 %Normal0.60-3.10The [facility] HospitalComment on above:Performed By: #### CBC #### [facility] [address] [address] [address] Jose David Mohan B12 AND FOLATEon 03-92-7918Hekykeljw (Vitamin B12) [Mass/Vol] 1406.0 pg/mLCritically rfzg836.0-986.0The [facility] HospitalComment on above: Performed By: #### CBC #### [facility] [address] [place] [address] Dr. Jose David ShanksFOLATE19.00 ng/mLNormal8.60-58.90The [facility] HospitalComment on above:Performed By: #### CBC #### [facility] [address] [place] [address] Dr. Jose David AllenC AUTO DIFFon 04-72-2932GGNG #0.0 103/ulNormal0.0-0.1The [facility] HospitalComment on above:Performed By: #### CBC #### [facility] [address] [place] [address] Dr. Jose David ShanksBasophils/100 WBC (Bld)0.6 %Normal0.2-2.0The [facility] Comment on above:Performed By: #### CBC #### [facility] [address] [place] [address] Dr. Jose David Devries #0.1 103/ulNormal0.0-0.7The [facility] HospitalComment on above: Performed By: #### CBC #### [facility] [address] [place] [address] Dr. Jose David Vickersosinophils/100 WBC (Bld)2.7 %Normal0.9-7.0The [facility] Comment on above:Performed By: #### CBC #### [facility] [address] [place] [address] Dr. Jose David Vickersrythrocyte distribution width (RBC) [Ratio]13.5 %Pamamu75.0-15.0 The [facility] HospitalComment on above:Performed By: #### CBC #### [facility] [address] [place] [address] Dr. Jose David ShanksHematocrit (Bld) [Volume fraction]30.0 %Critically low36.0-48.0 The [facility] HospitalComment on above:Performed By: #### CBC #### [facility] [address] [address] [address] Jose David ShanksHemoglobin (Bld) [Mass/Vol]10.0 g/dLCritically low12.0-16.0The [facility] HospitalComment on above:Performed By: #### CBC #### [facility] [address] [place] [address] Dr. Jose David Guerrero #0.02 10e3/ulNormal0.00-0.03The [facility] HospitalComment on above:Performed By: #### CBC #### [facility] [address] [place] [address] Dr. Jose David Guerrero %0.4 %Normal0.0-0.5The [facility] HospitalComment on above: Performed By: #### CBC #### [facility] [address] [place] [address] Dr. Jose David Rolon #0.9 103/ulCritically low1.2-3.8The [facility] Comment on above:Performed By: #### CBC #### [facility] [address] [place] [address] Dr. Jose David Anthonyhocytes/100 WBC (Bld)19.3 %Critically low20.5-60.0The [facility] HospitalComment on above:Performed By: #### CBC #### [facility] [address] [place] [address] Dr. Jose David MazariegosUAL DIFF REQNONormalThe [facility] HospitalComment on above: Performed By: #### CBC #### [facility] [address] [place] [address] Dr. Jose David Turner (RBC) [Entitic mass]29.3 pcNjsjcq99.7-34.0The [facility] HospitalComment on above:Performed By: #### CBC #### [facility] [address] [place] [address] Dr. Jose David Turner (RBC) [Mass/Vol]33.3 g/iDCltpfy42.9-35.2The [facility] HospitalComment on above:Performed By: #### CBC #### [facility] [address] [address] [address] Jose David TurnerV (RBC) [Entitic vol]88.0 uIUopnxu96.0-99.0The [facility] HospitalComment on above:Performed By: #### CBC #### [facility] [address] [address] [address] Jose David Horton #0.4 103/ulNormal0.3-0.8The [facility] HospitalComment on above:Performed By: #### CBC #### [facility] [address] [place] [address] Dr. Jose David Olivoocytes/100 WBC (Bld)8.3 %Normal1.7-12.0The [facility] Comment on above:Performed By: #### CBC #### [facility] [address] [place] [address] Dr. Jose David Mix #3.3 103/ulNormal1.4-6.5The [facility] HospitalComment on above:Performed By: #### CBC #### [facility] [address] [place] [address] Dr. Jose David Herndonutrophils/100 WBC (Bld)68.7 %Qqlczc51.0-75.0The [facility] Hospitalment on above:Performed By: #### CBC #### [facility] [address] [place] [address] Dr. Jose David Carmichaellet mean volume (Bld) [Entitic vol]9.9 fLNormal9.5-13.5The [facility] HospitalComment on above:Performed By: #### CBC #### [facility] [address] [place] [address] Dr. Jose David ShanksPLT259 103/odWqyrps383-561Jyi [facility] HospitalComment on above: Performed By: #### CBC #### [facility] [address] [place] [address] Dr. Jose David ShanksRBC3.41 106/ulCritically low4.20-5.40The [place] HospitalComment on above:Performed By: #### CBC #### [facility] [address] [address] [address] Jose David ShanksWBC4.8 103/ulNormal4.0-11.0The [facility] HospitalComment on above: Performed By: #### CBC #### [facility] [address] [address] [address] Jose David ShanksPROF CHEM 8 (BAS METB)on 16-62-1452Daaho gap [Moles/Vol]11.7 mmol/LNormalThe [facility] HospitalComment on above:Performed By: #### LACT #### [facility] [address] [address] [address] Jose David ShanksCalcium [Mass/Vol]8.6 mg/dLNormal8.5-10.1The [facility] Comment on above:Performed By: #### LACT #### [facility] [address] [place] [address] Dr. Jose David ShanksChloride [Moles/Vol]107 mmol/NFgfcjh98-337Xja [facility] Comment on above:Performed By: #### LACT #### [facility] [address] [address] [address] Jose David ShanksCO2 [Moles/Vol]30.9 mmol/PGorgcz18.0-32.0The [facility] Comment on above:Performed By: #### LACT #### [facility] [address] [address] [address] Jose David ShanksCreatinine [Mass/Vol]1.04 mg/dLCritically high0.55-1.02The [facility] Hospitalment on above:Performed By: #### LACT #### [facility] [address] [address] [address] Jose David VickersGFR-AF ANGOLAN>60Normal>=60The [facility] HospitalComment on above:Performed By: #### LACT #### [facility] [address] [place] [address] Dr. Jose David VickersGFR-NON AF POXHMWRA41 mL/min/1.78o5Oorgcwfzrv low>=60The [facility] HospitalComment on above:Performed By: #### LACT #### [facility] [address] [address] [address] Jose David ShanksGlucose [Mass/Vol]97 mg/iBUrwgvw39-150Iom [facility] Comment on above:Performed By: #### LACT #### [facility] [address] [address] [address] Jose David ShanksPotassium [Moles/Vol]3.6 mmol/LNormal3.5-5.1[facility] Comment on above:Performed By: #### LACT #### [facility] [address] [address] [address] Jose David ShanksSodium [Moles/Vol]146 mmol/LCritically ydhx588-816Mth [facility] HospitalComment on above:Performed By: #### LACT #### [facility] [address] [address] [address] Jose David ShanksUrea nitrogen [Mass/Vol]17.0 mg/dLNormal7.0-18.0The [facility] HospitalComment on above:Performed By: #### LACT #### [facility] [address] [address] [address] Jose David Rubio nitrogen/Creatinine [Mass ratio]16.3 mg/mgNormalThe [facility] HospitalComment on above:Performed By: #### LACT #### [facility] [address] [place] [address] Dr. Jose David ShanksXR CHEST 2 Von 72-26-8084IZ CHEST 2 VHISTORY: 70-pzxr-owdved referred for shortness of breath. COMPARISON: 02-08-2023. [...] Electronically authenticated by: EDWARD MENA Date: 2023-02-09 15:56[facility] Rutan HospitalBNPon 53-08-1465Hyitfcczjhl peptide B (Bld) [Mass/Vol]1007.0 pg/mLNormal<=1,800.0[facility] HospitalComment on above:Performed By: #### BNP #### [facility] [address] [place] [address] Dr. Jose David Tian TALI 3-6on 87-42-3981NO [Catalytic activity/Vol]29 U/L Lonegc41-221Bgb [facility] HospitalComment on above:Performed By: #### CMREP #### [facility] [address] [place] [address] Dr. Jose David Jacinto.MB [Mass/Vol]0.90 ng/mLNormal<=3.60[facility] Comment on above:Performed By: #### CMREP #### [facility] [address] [place] [address] Dr. Jose David JamesOP69.4 pg/mLCritically high4.0-51.3The [facility] Comment on above:Result Comment: CUT-OFF POINTS HAVE BEEN ESTABLISHED BASED ON THE FOURTH UNIVERSAL DEFINITIONS OF MYOCARDIAL INFARCTION. THE UPPER REFERENCE LIMIT (URL) OF TROPONIN, DEFINED THE 99TH PERCENTILE OF cTnI DISTRIBUTION IN A REFERENCE POPULATION, HAS BEEN CONFIRMED THE DECISION THRESHOLD FOR NC DIAGNOSIS.Performed By: #### CMREP #### [facility] [address] [place] [address] Dr. Jose David Jacinto [Catalytic activity/Vol]23 U/LCritically ecy84-548JmvVan Wert County HospitalComment on above:Performed By: #### CMREP #### [facility] [address] [place] [address] Dr. Jose David Jacinto.MB [Mass/Vol]ng/mLNormal<=3.60The [facility] HospitalComment on above:Performed By: #### CMREP #### [facility] [address] [place] [address] Dr. Jose David JamesOP72.0 pg/mLCritically high4.0-51.3TWhite Hospital Comment on above:Result Comment: CUT-OFF POINTS HAVE BEEN ESTABLISHED BASED ON THE FOURTH UNIVERSAL DEFINITIONS OF MYOCARDIAL INFARCTION. THE UPPER REFERENCE LIMIT (URL) OF TROPONIN, DEFINED THE 99TH PERCENTILE OF cTnI DISTRIBUTION IN A REFERENCE POPULATION, HAS BEEN CONFIRMED THE DECISION THRESHOLD FOR NC DIAGNOSIS.Performed By: #### CMREP #### [facility] [address] [place] [address] Dr. Jose David Tian TALI ADMITon 31-72-1392HV [Catalytic activity/Vol]31 U/L Jrhbiq30-100UhyVan Wert County HospitalComment on above:Performed By: #### CMADM, BMP #### [facility] [address] [place] [address] Dr. Jose David Jacinto.MB [Mass/Vol]ng/mLNormal<=3.60The [facility] HospitalComment on above:Performed By: #### CMADM, BMP #### [facility] [address] [place] [address] Dr. Jose David JamesOP26.3 pg/mLNormal4.0-51.3The [facility] HospitalComment on above:Result Comment: CUT-OFF POINTS HAVE BEEN ESTABLISHED BASED ON THE FOURTH UNIVERSAL DEFINITIONS OF MYOCARDIAL INFARCTION. THE UPPER REFERENCE LIMIT (URL) OF TROPONIN, DEFINED THE 99TH PERCENTILE OF cTnI DISTRIBUTION IN A REFERENCE POPULATION, HAS BEEN CONFIRMED THE DECISION THRESHOLD FOR NC DIAGNOSIS.Performed By: #### CMADM, BMP #### [facility] [address] [place] [address] Dr. Jose aDvid RenO52 ng/mLNormal9-82The [facility] HospitalComment on above: Performed By: #### CMADM, BMP #### [facility] [address] [place] [address] Dr. Jose David Viera AUTO DIFFon 21-96-8653RQFC #0.0 103/ulNormal0.0-0.1The [facility] HospitalComment on above:Performed By: #### LACT #### [facility] [address] [place] [address] Dr. Jose David ShanksBasophils/100 WBC (Bld)0.3 %Normal0.2-2.0The [facility] Comment on above:Performed By: #### LACT #### [facility] [address] [address] [address] Jose David Devries #0.1 103/ulNormal0.0-0.7The [facility] HospitalComment on above: Performed By: #### LACT #### [facility] [address] [place] [address] Dr. Jose David Vickersosinophils/100 WBC (Bld)0.5 %Critically low0.9-7.0The [facility] HospitalComment on above:Performed By: #### LACT #### [facility] [address] [place] [address] Dr. Jose David Vickersrythrocyte distribution width (RBC) [Ratio]13.4 %Jzsawh01.0-15.0 The [facility] HospitalComment on above:Performed By: #### LACT #### [facility] [address] [place] [address] Dr. Jose David ShanksHematocrit (Bld) [Volume fraction]33.0 %Critically low36.0-48.0 The [facility] HospitalComment on above:Performed By: #### LACT #### [facility] [address] [place] [address] Dr. Jose David ShanksHemoglobin (Bld) [Mass/Vol]11.1 g/dLCritically low12.0-16.0The [facility] HospitalComment on above:Performed By: #### LACT #### [facility] [address] [place] [address] Dr. Jose David Guerrero #0.06 10e3/ulCritically high0.00-0.03The [facility] Comment on above:Performed By: #### LACT #### [facility] [address] [place] [address] Dr. Jose David Guerrero %0.5 %Normal0.0-0.5The [facility] HospitalComment on above: Performed By: #### LACT #### [facility] [address] [address] [address] Jose David Rolon #0.8 103/ulCritically low1.2-3.8The [facility] Comment on above:Performed By: #### LACT #### [facility] [address] [place] [address] Dr. Jose David Allenmphocytes/100 WBC (Bld)7.0 %Critically low20.5-60.0The [facility] HospitalComment on above:Performed By: #### LACT #### [facility] [address] [place] [address] Dr. Jose David Donovan DIFF REQNONormalThe [facility] HospitalComment on above: Performed By: #### LACT #### [facility] [address] [place] [address] Dr. Jose David Turner (RBC) [Entitic mass]29.6 alGebwjk16.7-34.0The [facility] HospitalComment on above:Performed By: #### LACT #### [facility] [address] [place] [address] Dr. Jose David Turner (RBC) [Mass/Vol]33.6 g/fBJeggcv91.9-35.2The [facility] HospitalComment on above:Performed By: #### LACT #### [facility] [address] [place] [address] Dr. Jose David Turner (RBC) [Entitic vol]88.0 vULbjmky70.0-99.0The [facility] HospitalComment on above:Performed By: #### LACT #### [facility] [address] [place] [address] Dr. Jose David Horton #0.6 103/ulNormal0.3-0.8The [facility] HospitalComment on above:Performed By: #### LACT #### [facility] [address] [place] [address] Dr. Jose David Olivoocytes/100 WBC (Bld)5.4 %Normal1.7-12.0The [facility] Comment on above:Performed By: #### LACT #### [facility] [address] [address] [address] Jose David Mix #9.9 103/ulCritically high1.4-6.5The [facility] Comment on above:Performed By: #### LACT #### [facility] [address] [place] [address] Dr. Jose David Herndonutrophils/100 WBC (Bld)86.3 %Critically high43.0-75.0The [facility] HospitalComment on above:Performed By: #### LACT #### [facility] [address] [place] [address] Dr. Jose David ShanksPlatelet mean volume (Bld) [Entitic vol]10.1 fLNormal9.5-13.5The [facility] HospitalComment on above:Performed By: #### LACT #### [facility] [address] [place] [address] Dr. Jose David ShanksPLT333 103/oxMftozo576-588Sof [facility] HospitalComment on above: Performed By: #### LACT #### [facility] [address] [place] [address] Dr. Jose David ShanksRBC3.75 106/ulCritically low4.20-5.40The [facility] HospitalComment on above:Performed By: #### LACT #### [facility] [address] [place] [address] Dr. Jose David ShanksWBC11.5 103/ulCritically high4.0-11.0The [facility] HospitalComment on above:Performed By: #### LACT #### [facility] [address] [place] [address] Dr. Jose David Scott BLOODon 74-42-7793Wrdxkzngafu examination of blood, cultureCulture Observations: NO GROWTH AT 5 DAYS.NormalThe [facility] HospitalComment on above:Performed By: #### LACT #### [facility] [address] [place] [address] Dr. Jose David ShanksMicroscopic examination of blood, cultureCulture Observations: NO GROWTH AT 5 DAYS.NormalThe [facility] HospitalComment on above:Performed By: #### LACT #### [facility] [address] [address] [address] Jose David PinoCARDIO M/2D COMPLETEon [id number] M/2D COMPLETE Patient: LASHAUN JOAQUIN Exam Date: 02/08/2023 : 1940 Gender:F Ordering : DR ALLI SCOTT . Admission #: [id number] Family : DR NATHAN HATHAWAY D.O. Order #: [id number] CLICK HERE TO VIEW EXAM ECHOCARDIOGRAM REPORT [...] by: Jaquan Payne M.D. on 02/09/2023 at 19:11[facility] HospitalLACTATE/LACTIC ACIDon 37-90-4954Jsudqpy [Moles/Vol]1.4 mmol/LNormal 0.4-2.0The [facility] HospitalComment on above:Performed By: #### LACT #### [facility] [address] [address] [address] Jose David ShanksLactate [Moles/Vol]1.4 mmol/LNormal0.4-2.0The [facility] Comment on above:Performed By: #### LACT #### [facility] [address] [address] [address] Jose David BarthF CHEM 8 (BAS METB)on 60-74-2540Lfxff gap [Moles/Vol]11.9 mmol/LNormalThe [facility] HospitalComment on above:Performed By: #### CMADM, BMP #### [facility] [address] [place] [address] Dr. Jose David ShanksCalcium [Mass/Vol]9.0 mg/dLNormal8.5-10.1The [facility] Comment on above:Performed By: #### CMADM, BMP #### [facility] [address] [address] [address] Jose David ShanksChloride [Moles/Vol]105 mmol/GFuanzd19-893Rke [facility] Comment on above:Performed By: #### CMADM, BMP #### [facility] [address] [address] [address] Jose David ShanksCO2 [Moles/Vol]28.2 mmol/FMoxstf24.0-32.0The [facility] Comment on above:Performed By: #### CMADM, BMP #### [facility] [address] [place] [address] Dr. Jose David ShanksCreatinine [Mass/Vol]0.99 mg/dLNormal0.55-1.02The [facility] HospitalComment on above:Performed By: #### CMADM, BMP #### [facility] [address] [place] [address] Dr. Jose David VickersGFR-AF ANGOLAN>60Normal>=60The [facility] HospitalComment on above:Performed By: #### CMADM, BMP #### [facility] [address] [address] [address] Jose David VickersGFR-NON AF VEXIUDAW73 mL/min/1.77e0Edcgmmzddw low>=60The [facility] HospitalComment on above:Performed By: #### CMADM, BMP #### [facility] [address] [address] [address] Jose David ShanksGlucose [Mass/Vol]123 mg/dLCritically ktlj97-381Cdn [facility] HospitalComment on above:Performed By: #### CMADM, BMP #### [facility] [address] [address] [address] Jose David ShanksPotassium [Moles/Vol]4.1 mmol/LNormal3.5-5.1The [facility] Comment on above:Performed By: #### CMADM, BMP #### [facility] [address] [address] [address] Jose David ShanksSodium [Moles/Vol]141 mmol/PMoepnv947-513Bhs [facility] Comment on above:Performed By: #### CMADM, BMP #### [facility] [address] [address] [address] Jose David ShanksUrea nitrogen [Mass/Vol]14.0 mg/dLNormal7.0-18.0The [facility] HospitalComment on above:Performed By: #### CMADM, BMP #### [facility] [address] [address] [address] Jose David Rubio nitrogen/Creatinine [Mass ratio]14.1 mg/mgNormalThe [facility] HospitalComment on above:Performed By: #### CMADM, BMP #### [facility] [address] [address] [address] Jose David ShanksRESPIRATORY PANEL PLUSon 85-36-4245KksvcbbzfrPsl detectedNormal NOT DETECTEDThe [facility] HospitalComment on above:Performed By: #### RSPLUS #### [facility] [address] [address] [address] Jose David Mccoy. ParapertusisNot detectedNormalNOT DETECTEDThe [facility] HospitalComment on above:Performed By: #### RSPLUS #### [facility] [address] [address] [address] Jose David Mccoy. PertussisNot detectedNormalNOT DETECTEDThe [facility] Comment on above:Performed By: #### RSPLUS #### [facility] [address] [address] [address] Jose David ShanksChlamydia PneumoniaeNot detectedNormalNOT DETECTEDThe [facility] HospitalComment on above:Performed By: #### RSPLUS #### [facility] [address] [address] [address] Jose David ShanksCoronavirus 229ENot detectedNormalNOT DETECTEDThe [facility] HospitalComment on above:Performed By: #### RSPLUS #### [facility] [address] [address] [address] Jose David ShanksCoronavirus PYS1Snr detectedNormalNOT DETECTEDThe [facility] HospitalComment on above:Performed By: #### RSPLUS #### [facility] [address] [address] [address] Jose David ShanksCoronavirus PR11Hku detectedNormalNOT DETECTEDThe [facility]Comselect [facility]-pontiac on above:Performed By: #### RSPLUS #### [facility] [address] [address] [address] Jose David ShanksCoronavirus BN88Mkz detectedNormalNOT DETECTEDThe [facility] HospitalComment on above:Performed By: #### RSPLUS #### [facility] [address] [address] [address] Jose David Rangel A H1Not detectedNormalNOT DETECTEDThe [facility] Comment on above:Performed By: #### RSPLUS #### [facility] [address] [address] [address] Jose David Kat H1 2009Not detectedNormalNOT DETECTEDThe [facility] HospitalComment on above:Performed By: #### RSPLUS #### [facility] [address] [address] [address] Yilan ChangInfluenza A H3Not detectedNormalNOT DETECTEDThe [facility] Comment on above:Performed By: #### RSPLUS #### [facility] [address] [address] [address] Jose David Ragnel BNot detectedNormalNOT DETECTEDThe [facility] Comment on above:Performed By: #### RSPLUS #### [facility] [address] [address] [address] Jose David AbdullahineumovirusNot detectedNormalNOT DETECTEDThe [facility] HospitalComment on above:Performed By: #### RSPLUS #### [facility] [address] [address] [address] Jose David Ha. PneumoniaeNot detectedNormalNOT DETECTEDThe [facility]Comment on above:Performed By: #### RSPLUS #### [facility] [address] [address] [address] Jose David Del Toro 1Not detectedNormalNOT DETECTEDThe [facility] HospitalComment on above:Performed By: #### RSPLUS #### [facility] [address] [address] [address] Jose David Del Toro 2Not detectedNormalNOT DETECTEDThe [facility] HospitalComment on above:Performed By: #### RSPLUS #### [facility] [address] [address] [address] Jose David Del Toro 3Not detectedNormalNOT DETECTEDThe [facility] HospitalComment on above:Performed By: #### RSPLUS #### [facility] [address] [address] [address] Jose David Del Toro 4Not detectedNormalNOT DETECTEDThe [facility]Comselect [facility] on above:Performed By: #### RSPLUS #### [facility] [address] [address] [address] Jose David ShanksRhmelina/EnterovirusNot detectedNormalNOT DETECTEDThe [facility]Com[facility] on above:Performed By: #### RSPLUS #### [facility] [address] [place] [address] Dr. Jose David uRff Header 1RESPIRATORY PANEL: VIRUSESMary [facility] Comment on above:Performed By: #### RSPLUS #### [facility] [address] [place] [address] Dr. Jose David Ruff Header 2RESPIRATORY PANEL: BACTERIANoTriHealthComment on above:Performed By: #### RSPLUS #### [facility] [address] [place] [address] Dr. Jose David ShanksRSVNot detectedNormalNOT DETECTEDThe [facility] HospitalComment on above:Performed By: #### RSPLUS #### [facility] [address] [place] [address] Dr. Jose David Gonzalez-CoV-2 (COVID-19) RNA ZABRINA+probe Ql (Unsp spec)Not detected NormalNOT DETECTEDThe [facility] HospitalComment on above:Performed By: #### RSPLUS #### [facility] [address] [place] [address] Dr. Jose David ShanksXR CHEST 1 Von 51-21-1985QY CHEST 1 VEXAM: XR CHEST 1 V [...] Electronically authenticated by: Petra SAHU Date: 2023-02-08 05:[address] [place], [place] [address]MG MAMM SCREEN 3D SCARLETT CADon [id number] MAMM SCREEN 3D SCARLETT CAD Patient: LASHAUN JOAQUIN Exam Date: 01/08/2023 : 1940 Gender:F Ordering : DR NATHAN HATHAWAY D.O. Admission #: [id number] Family : Order #: [id number] CLICK HERE TO VIEW EXAM RADIOLOGY REPORT [...] cancer at age 62. LOCATION: The [facility] BREAST COMPOSITION: Extremely dense, which lowers [...] by: William Dominguez MD on 01/08/2023 at 11:24[facility] HEAD_NECKon 89-48-6405BM HEAD_NECKEXAM: US HEAD_NECK HISTORY: Localized enlarged lymph [...] Electronically authenticated by: WILLIAM DOMINGUEZ Date: 2022-09-11 17:07[facility] Abdomen and Pelvis W contrast Rivka 68-06-6212AIPIGDFYBR: 1. Stable CT of the abdomen and [...] any questions regarding this interpretation, please call [phone]. If you are unable to reach us at the number above, please feel free to contact [facility] at [phone].DIVISION OF RADIOLOGY* * *Final Report* * * DATE OF EXAM: Aug 28 2022 1:36PM [facility] 0530 - CT ABD/PEL W [...] chest CT performed will be reported separately. Vessel Ordinary Seaman (topogram) images: No additional findings. DIVISION OF RADIOLOGYProvider, [facility] [place] - 08/28/2022 * * *Final Report* * * DATE OF EXAM: Aug 28 2022 1:36PM [facility] 0530 - CT ABD/PEL W [...] chest CT performed will be reported separately. Vessel Ordinary Seaman (topogram) images: No additional findings. IMPRESSION IMPRESSION: [...] any questions regarding this interpretation, please call [phone]. If you are unable to reach us at the number above, please feel free to contact [facility] eRadiology at [phone]. [facility] Abdomen and Pelvis W contrast IVOrdered By: [facility] Provider on 32-30-5272Foaxafqsr [facility] Chest W contrast Rivka 43-69-6680BQHUGDJKGJ: 1. Interval resolution of previously described right [...] any questions regarding this interpretation, please call [phone]. If you are unable to reach us at the number above, please feel free to contact [facility] eRadiology at [phone].DIVISION OF RADIOLOGY* * *Final Report* * * DATE OF EXAM: Aug 28 2022 1:36PM [facility] 0539 - CT CHEST W [...] was performed concurrently and is reported separately. Vessel Ordinary Seaman (topogram) images: No additional findings. DIVISION OF RADIOLOGYProvider, [facility] [place] - 08/28/2022 * * *Final Report* * * DATE OF EXAM: Aug 28 2022 1:36PM [facility] 0539 - CT CHEST W [...] was performed concurrently and is reported separately. Vessel Ordinary Seaman (topogram) images: No additional findings. IMPRESSION IMPRESSION: [...] any questions regarding this interpretation, please call [phone]. If you are unable to reach us at the number above, please feel free to contact [facility] eRadiology at [phone]. [facility]No Panel Informationon 09-51-1472Howwumtvm Study observation (narrative)[facility] HospitalCovid-19 PCR (CVDTBH)on 05-04-2022 SARS-CoV-2 (COVID-19) RNA ZABRINA+probe Ql (Unsp spec)DetectedCritically abnormalNOT DETECTEDThe [facility]Comment on above:Result Comment: This test is not yet approved or cleared by the [place] FDA. When there are no FDA-approved or cleared tests available, and other criteria are met, FDA can make tests available under an emergency access mechanism called an Emergency Use Authorization (EUA). The EUA for this test is supported by the [place] of Health and Human Service's (HHS's) declaration [...] be used).Performed By: #### CVDTBH #### [facility] [address] [place] [address] Dr. Jose David Shanks Vital Signs Date TimeVital SignValuePerforming CoqozblkuFgzpdtpe30-09-2785 11:43-0400Body kjmejp476.02 cmBenjamin Ball DO Work Phone: 1(504)[facility] [place], [place] [address]10-24-2025 11:43-0400 Body mass index (BMI) [Ratio]34.7 kg/d0Iutadgsn Ball DO Work Phone: 1(687)[address] [place], [place] 2821010-24-2025 11:43-0400 Body lexckz46.9 kgBenjamin Ball DO Work Phone: 1(566)[address] [place], [place] 2821010-24-2025 11:43-0400 Diastolic blood ojrmcsto41 mm[Hg]Nathan Ball DO Work Phone: 1(310)[address] [place], [place] 2821010-24-2025 11:43-0400 Heart rate62 /minBenjamin Ball DO Work Phone: 1(758)[address] [place], [place] 2821010-24-2025 11:43-0400 Respiratory rate14 /minBenjamin Ball DO Work Phone: 1(723)[address] [place], [place] 2821010-24-2025 11:43-0400 SaO2% (BldA) [Mass fraction]98 %Nathan Ball DO Work Phone: 1(306)[address] [place], [place] 2821010-24-2025 11:43-0400 Systolic blood quydwoce375 mm[Hg]Nathan Ball DO Work Phone: 1(987)[address] [place], [place] 2821010-07-2025 10:44-0400 Body .02 cmBenjamin Ball DO Work Phone: 1(249)[address] [place], [place] 2821010-07-2025 10:44-0400 Body mass index (BMI) [Ratio]34.5 kg/r2Wgaedeaw Ball DO Work Phone: 1(623)[address] [place], [place] 2821010-07-2025 10:44-0400 Body cltseoujqfz95.6 [degF]Nathan Ball DO Work Phone: 1(379)[address] [place], [place] 2821010-07-2025 10:44-0400 Body ldnydz92.45 kgBenjamin Ball DO Work Phone: 1419)[address] [place], [place] 2821010-07-2025 10:44-0400 Diastolic blood joaeszpe87 mm[Hg]Nathan Ball DO Work Phone: 1419)[address] [place], [place] 2821010-07-2025 10:44-0400 Heart rate69 /minBenjamin Ball DO Work Phone: 1419)[address] [place], [place] 2821010-07-2025 10:44-0400 SaO2% (BldA) [Mass fraction]96 %Nathan Ball DO Work Phone: 1419)[address] [place], [place] 2821010-07-2025 10:44-0400 Systolic blood mm[Hg]Nathan Ball DO Work Phone: 1419)[address] [place], [place] 2821009-23-2025 15:53-0400 Body idrtkc205.37 cmBenjamin Ball DO Work Phone: 1419)[address] [place], [place] 2821009-23-2025 15:53-0400 Body mass index (BMI) [Ratio]31.9 kg/r4Rqsxvewx Ball DO Work Phone: 1419)[address] [place], [place] 2821009-23-2025 15:53-0400 Body sadvpu81.45 kgBenjamin Ball DO Work Phone: 1(958)[address] [place], [place] 2821009-23-2025 15:53-0400 Diastolic blood tsiazeub25 mm[Hg]Nathan Ball DO Work Phone: 1(815)[address] [place], [place] 2821009-23-2025 15:53-0400 Diastolic blood xirwkgrd10 mm[Hg]Nathan Ball DO Work Phone: 1(044)[facility] [place], [place] 6448209-23-2025 15:53-0400 Heart rate76 /minBenjamin Ball DO Work Phone: 1419)[address] [place], [place] 2821009-23-2025 15:53-0400 Respiratory rate12 /minBenjamin Ball DO Work Phone: 1(437)[address] [place], [place] 2821009-23-2025 15:53-0400 Systolic blood jnnbefwf168 mm[Hg]Nathan Ball DO Work Phone: [facility]09-23-2025 15:53-0400 Systolic blood mnkudaxd436 mm[Hg]Nathan Hathaway DO Work Phone: [facility]09-10-2025 10:09-0400 Diastolic blood fcsvongw62 mm[Hg]Paolo Casillas APRN.COLOR PRINT INSPECTOR Work Phone: [facility] HospitalComment on above:recheck BP [facility] 07-08-2025 10:09-0400Systolic blood srlebaiw534 mm[Hg]Paolo Casillas APRN.[employer] PRINT INSPECTOR Work Phone: [facility] HospitalComment on above:recheck BP [facility] 07-08-2025 10:01-0400Body fayleq195.4 cmPaolo Casillas APRN.[employer] PRINT INSPECTOR Work Phone: [facility]09-10-2025 10:01-0400Body mass index (BMI) [Ratio]33.15 kg/l1VxjxsPaolo Casillas APRN.[employer] PRINT INSPECTOR Work Phone: [facility]09-10-2025 10:01-0400Body temperature 96.8 [degF]Paolo Casillas APRN.[employer] PRINT INSPECTOR Work Phone: [facility]09-10-2025 10:01-0400Body yfuwjd95.8 kgPaolo Casillas APRN.[employer] PRINT INSPECTOR Work Phone: [facility]09-10-2025 10:01-0400Heart rate66 /min Paolo Casillas APRN.[employer]INT INSPECTOR Work Phone: [facility]09-10-2025 10:01-0400Respiratory rate 18 /minPaolo Casillas APRN.[employer] PRINT INSPECTOR Work Phone: [facility]09-10-2025 10:01-5829PfZ7% (BldA) [Mass fraction]95 %Paolo Casillas APRN.[employer] PRINT INSPECTOR Work Phone: [facility]08-22-2025 09:31-0400Body pmrniu117.37 cmBenjuanairam Hathaway DO Work Phone: [address] [place], [place] 0134308-22-2025 09:31-0400 Body mass index (BMI) [Ratio]32.4 kg/h6Vvrtlxvt Ball DO Work Phone: 1(294)[address] [place], [place] 2821008-22-2025 09:31-0400 Body .81 kgBenjamin Ball DO Work Phone: 1(910)[address] [place], [place] 2821008-22-2025 09:31-0400 Diastolic blood abjrwaao63 mm[Hg]Nathan Ball DO Work Phone: 1(641)[address] [place], [place] 2821008-22-2025 09:31-0400 Heart rate62 /minBenjamin Ball DO Work Phone: 1(700)[address] [place], [place] 2821008-22-2025 09:31-0400 Respiratory rate14 /minBenjamin Ball DO Work Phone: 1(561)[address] [place], [place] 2821008-22-2025 09:31-0400 SaO2% (BldA) [Mass fraction]96 %Nathan Ball DO Work Phone: 1(519)[address] [place], [place] 2821008-22-2025 09:31-0400 Systolic blood tvwiznbg068 mm[Hg]Nathan Ball DO Work Phone: 1(990)[address] [place], [place] 2821007-22-2025 15:33-0400 Body mrulxm146.37 cmBenjamin Ball DO Work Phone: 1(264)[address] [place], [place] 2821007-22-2025 15:33-0400 Body mass index (BMI) [Ratio]31.8 kg/b9Olwpwule Ball DO Work Phone: 1(328)[address] [place], [place] 2821007-22-2025 15:33-0400 Body dyzwaz66.13 kgBenjamin Ball DO Work Phone: 1(870)[address] [place], [place] 2821007-22-2025 15:33-0400 Diastolic blood chiceyuw35 mm[Hg]Nathan Ball DO Work Phone: 1(097)[address] [place], [place] 2821007-22-2025 15:33-0400 Heart rate67 /minBenjamin Ball DO Work Phone: 1(419)[address] [place], [place] 2821007-22-2025 15:33-0400 Respiratory rate14 /minBenjamin Ball DO Work Phone: 1419)[address] [place], [place] 2821007-22-2025 15:33-0400 SaO2% (BldA) [Mass fraction]96 %Nathan Ball DO Work Phone: 1419)[address] [place], [place] 2821007-22-2025 15:33-0400 Systolic blood mm[Hg]Nathan Ball DO Work Phone: 1(419)[address] [place], [place] 2821005-22-2025 11:22-0400 Body ujppdd593.37 cmBenjamin Ball DO Work Phone: 1419)[address] [place], [place] 2821005-22-2025 11:22-0400 Body mass index (BMI) [Ratio]31.6 kg/y4Oyggcczb Ball DO Work Phone: 1419)[address] [place], [place] 2821005-22-2025 11:22-0400 Body .54 kgBenjamin Ball DO Work Phone: 1419)[address] [place], [place] 2821005-22-2025 11:22-0400 Diastolic blood lqwqyyco12 mm[Hg]Nathan Ball DO Work Phone: 1(945)[address] [place], [place] 2821005-22-2025 11:22-0400 Heart rate66 /minBenjamin Ball DO Work Phone: 1419)[address] [place], [place] 2821005-22-2025 11:22-0400 Respiratory rate12 /minBenjamin Ball DO Work Phone: 1419)[address] [place], [place] 2821005-22-2025 11:22-0400 SaO2% (BldA) [Mass fraction]97 %Nathan Ball DO Work Phone: 1419)[address] [place], [place] 2821005-22-2025 11:22-0400 Systolic blood uapmozlc688 mm[Hg]Nathan Ball DO Work Phone: 1419)[address] [place], [place] 2821005-20-2025 10:42-0400 Body bfywuk778.1 [facility] [address] [place], [place] 9224305-20-2025 10:42-0400 Body mass index (BMI) [Ratio]33.28 kg/m[address] 03-17-2025 10:42-0400Body ikmnug33.[address] 03-17-2025 10:42-0400Diastolic blood sqvyjhlt48 mm[Hg][address]05-20-2025 10:42-0400Systolic blood odfkiplr964 mm[Hg][address]05-16-2025 13:25-0400Body rgmfiv606.37 cm Nathan Ball DO Work Phone: 1(819)[address]05-16-2025 13:25-0400 Body mass index (BMI) [Ratio]33 kg/p9Zxhhdsjq Ball DO Work Phone: 1(822)[address]05-16-2025 13:25-0400 Body epetht51.28 kgBenjamin Ball DO Work Phone: 1(014)654-[address] [place], [place] 6448205-16-2025 13:25-0400 Diastolic blood jwkgtkyf35 mm[Hg]Nathan Ball DO Work Phone: 1(948)072-[address] [place], [place] 6448205-16-2025 13:25-0400 Heart rate90 /minBenjamin Ball DO Work Phone: 1(628)[address]05-16-2025 13:25-0400 Respiratory rate12 /minBenjamin Ball DO Work Phone: 1(866)528-[address] [place], [place] 6448205-16-2025 13:25-0400 Systolic blood dzecuqii272 mm[Hg]Nathan Ball DO Work Phone: 1(836)[address]04-30-2025 08:46-0400 Body .1 cmReyna Esparza MD Work Phone: [facility] SystemBduahqxoru49-83-1792 08:46-0400Body mass index (BMI) [Ratio]32.45 kg/f4RcgoakReyna Esparza MD Work Phone: [facility] SystemNcxcvovsfo93-84-8186 08:46-0400Body phntei31.45 kgReyna Esparza MD Work Phone: [facility] SystemIrytkhbwaj76-22-3844 08:46-0400Diastolic blood phyeoftl73 mm[Hg]Reyna Esparza MD Work Phone: [facility] SystemZtrfbkygqj53-69-0211 08:46-0400Heart rate72 /min Reyna Esparza MD Work Phone: [facility] SystemIzbhrkwpmb24-01-2218 08:46-0400Systolic blood mm[Hg]Reyna Esparza MD Work Phone: [facility] SystemKftvezjdfo30-22-8853 10:20-0400Diastolic blood qnmbxlji43 mm[Hg]Nathan Ball DO Work Phone: 1(379)814-[address] [place], [place] 6448204-17-2025 10:20-0400 Heart rate56 /minBenjamin Ball DO Work Phone: 1(744)[facility] [place], [place] 6448204-17-2025 10:20-0400 Respiratory rate18 /minBenjamin Ball DO Work Phone: 1(122)[address] [place], [place] 2821004-17-2025 10:20-0400 SaO2% (BldA) [Mass fraction]97 %Nathan Ball DO Work Phone: [phone] [address] [place], [place] 6448204-17-2025 10:20-0400 Systolic blood vibjysaz740 mm[Hg]Nathan Ball DO Work Phone: 1(126)322-[address] [place], [place] 6448204-17-2025 06:29-0400 Body fcuyiz762.1 cmBenjamin Ball DO Work Phone: 1(910)[facility] [place], [place] 6448204-17-2025 06:29-0400 Body clspxyoccam60.3 [degF]Nathan Ball DO Work Phone: 1(614)[facility] [place], [place] 6448204-17-2025 06:29-0400 Body ojkbqi89.9 kgBenjamin Ball DO Work Phone: 1(539)[address] [place], [place] 2821003-27-2025 10:20-0400 Body wmxhmy059.37 cmBenjamin Ball DO Work Phone: [facility]03-27-2025 10:20-0400 Body mass index (BMI) [Ratio]31.9 kg/i8Ffxocwlu Ball DO Work Phone: [facility]03-27-2025 10:20-0400 Body liugdc05.45 kgBenjamin Ball DO Work Phone: 1(066)185-87[facility]03-27-2025 10:20-0400 Diastolic blood xnylqwmb09 mm[Hg]Nathan Ball DO Work Phone: 1(180)738-15[facility]03-27-2025 10:20-0400 Heart rate65 /minBenjamin Ball DO Work Phone: 1(116)076-19[facility]03-27-2025 10:20-0400 Respiratory rate12 /minBenjamin Ball DO Work Phone: 1(430)853-15[facility]03-27-2025 10:20-0400 Systolic blood ueffvaap966 mm[Hg]Nathan Ball DO Work Phone: 1(664)999-28[facility]03-17-2025 11:10-0400 Body jgaryn764.1 cmHolden Rosado FLUME WORKER-[employer] PRINT INSPECTOR Work Phone: [facility]03-17-2025 11:10-0400 Body mass index (BMI) [Ratio]33.28 kg/f9WdmmeHolden Rosado FLUME WORKER-[employer] PR[employer] INSPECTOR Work Phone: [facility]03-17-2025 11:10-0400 Body hgpeuo51.72 kgHolden Rosado FLUME WORKER-[employer] PRINT INSPECTOR Work Phone: [facility]03-17-2025 11:10-0400 Diastolic blood obianruh93 mm[Hg]Holden Rosado FLUME WORKER-[employer] PR[employer] INSPECTOR Work Phone: [facility]03-17-2025 11:10-0400 Heart rate60 /Jasbir Rosado FLUME WORKER-[employer] PRINT INSPECTOR Work Phone: [address] [place], [place] 1420103-17-2025 11:10-0400 Systolic blood oaizqpgz332 mm[Hg]Holden Rosado FLUME WORKER-[employer] PRINT INSPECTOR Work Phone: [facility]02-18-2025 10:50-0500 Body ouzvoh815.37 cmBenjamin Ball DO Work Phone: 1(001)096[facility]73[facility]02-18-2025 10:50-0500 Body mass index (BMI) [Ratio]32 kg/j1Errjbfgp Ball DO Work Phone: 1(073)[address]02-18-2025 10:50-0500 Body exusuh78.59 kgBenjamin Ball DO Work Phone: 1(389)[address] [place], [place] 2821002-18-2025 10:50-0500 Diastolic blood dtcevccq68 mm[Hg]Nathan Ball DO Work Phone: 1(753)049-52[facility]02-18-2025 10:50-0500 Heart rate56 /minBenjamin Ball DO Work Phone: 1(542)646-[address] [place], [place] 6448202-18-2025 10:50-0500 SaO2% (BldA) [Mass fraction]97 %Nathan Ball DO Work Phone: 1(069)[address]02-18-2025 10:50-0500 Systolic blood ynzjmfcn433 mm[Hg]Nathan Ball DO Work Phone: 1(083)[address]01-28-2025 13:55-0500 Body xfketf155.1 cmReyna Esparza MD Work Phone: [facility] SystemKgcavtaobd43-09-5338 13:55-0500Body mass index (BMI) [Ratio]32.28 kg/w3QnreidReyna Esparza MD Work Phone: [phone]([phone] SystemRxngchmyst74-94-6354 13:55-0500Body ehusjk24 kg Reyna Esparza MD Work Phone: [facility] SystemUaxmyoplqb37-49-2871 13:55-0500Diastolic blood wcyjrebn90 mm[Hg]Reyna Esparza MD Work Phone: [facility] SystemIfpqlvzdmu12-52-1311 13:55-0500Heart rate60 /min Reyna Esparza MD Work Phone: [facility] SystemJdfjegklsj58-25-0747 13:55-0500Systolic blood mmesspee116 mm[Hg]Reyna Esparza MD Work Phone: [facility] SystemShnsemyjrd95-58-4910 13:05-0500Diastolic blood kqrrokye07 mm[Hg]Nathan Ball DO Work Phone: 1(690)[address] [place], [place] 2821001-20-2025 13:05-0500 Heart rate68 /minBenjamin Ball DO Work Phone: 1(208)[address] [place], [place] 2821001-20-2025 13:05-0500 Respiratory rate16 /minBenjamin Ball DO Work Phone: 1(924)[address] [place], [place] 2821001-20-2025 13:05-0500 SaO2% (BldA) [Mass fraction]94 %Nathan Ball DO Work Phone: 1(304)[address] [place], [place] 2821001-20-2025 13:05-0500 Systolic blood aayuacys592 mm[Hg]Nathan Ball DO Work Phone: 1(892)[address] [place], [place] 2821001-20-2025 10:05-0500 Body .37 cmBenjamin Ball DO Work Phone: 1(244)[address] [place], [place] 2821001-20-2025 10:05-0500 Body oeijae78.35 kgBenjamin Ball DO Work Phone: 1(425)[address] [place], [place] 2821012-11-2024 10:40-0500 Body odkful071.1 cmWilliam Orlando DO Work Phone: [facility]12-11-2024 10:40-0500 Body mass index (BMI) [Ratio]33.12 kg/z4Gpuzsce Orlando DO Work Phone: [facility]12-11-2024 10:40-0500 Body saauvq51.27 kgWihelena Orlando DO Work Phone: [facility]12-11-2024 10:40-0500 Diastolic blood jphvwbui82 mm[Hg]Edinson Perry DO Work Phone: [facility]12-11-2024 10:40-0500 Heart rate78 /Frieda Perry DO Work Phone: [facility]12-11-2024 10:40-0500 Systolic blood altrqcyp490 mm[Hg]Edinson Perry DO Work Phone: [facility]11-14-2024 10:19-0500 Body svfkyy387.1 [facility]11-14-2024 10:19-0500Body mass index (BMI) [Ratio]32.3 kg/r7ZrriphpmoAdena [facility] Center11-14-2024 10:19-0500Body .13 kg[facility]11-14-2024 10:19-0500Diastolic blood mixbczqf62 mm[Hg][facility] 09-11-2024 10:19-0500Heart rate63 /minA[facility]a [facility] Center 09-11-2024 10:19-4742PrB5% (BldA) [Mass fraction]97 %[facility]11-14-2024 10:19-0500Systolic blood fxwqdojh743 mm[Hg][facility]08-06-2024 10:54-0400Body .1 cmDO Bountii Work Phone: [facility]08-06-2024 10:54-0400 Body mass index (BMI) [Ratio]26.8 kg/m2DO Nathan [employer] Work Phone: [facility]08-06-2024 10:54-0400 Body vqowbz15.02 kgDO Bountii Work Phone: [facility]08-06-2024 10:54-0400 Diastolic blood drhfrroz41 mm[Hg]DO Nathan [employer] Work Phone: [facility]08-06-2024 10:54-0400 Heart rate56 /minDO Nathan Ball Work Phone: [facility]08-06-2024 10:54-0400 Respiratory rate12 /Emerald Hathaway Work Phone: [facility]08-06-2024 10:54-0400 Systolic blood nseqjewh619 mm[Hg]DO Nathan Hathaway Work Phone: [facility]06-24-2024 10:21-0400 Body mass index (BMI) [Ratio]32.98 kg/b3XfgzxHolden Rosado FLUME WORKER-[employer] PRINT INSPECTOR Work Phone: [facility]06-24-2024 10:21-0400 Body .9 kgHolden Rosado FLUME WORKER-COLOR PRINT INSPECTOR Work Phone: 5(570)269-[address] [place], [place] 0435906-24-2024 10:21-0400 Diastolic blood buwgklek33 mm[Hg]Holden Rosado FLUME WORKER-COLOR PRINT INSPECTOR Work Phone: [facility]06-24-2024 10:21-0400 Heart rate60 /Tetonorth Alonzo FLUME WORKER-COLOR PRINT INSPECTOR Work Phone: [facility]06-24-2024 10:21-0400 Systolic blood cgtuldiy459 mm[Hg]Holden Rosado FLUME WORKER-COLOR PRINT INSPECTOR Work Phone: [facility]05-15-2024 09:27-0400 Diastolic blood vguloejq38 mm[Hg]Laura [address] [place] [address] 03-12-2024 09:27-0400Heart rate62 /minEly [address] [place] [address] 03-12-2024 09:27-0400Systolic blood mjnnvjdy397 mm[Hg]Laura [address] [place], [place] 4333205-08-2024 11:46-0400Body crpkjy742.1 cmHolden Rosado FLUME WORKER-COLOR PRINT INSPECTOR Work Phone: 4(710)041-[address] [place], [place] 0435905-08-2024 11:46-0400 Body mass index (BMI) [Ratio]32.62 kg/z6NotmcHolden Rosado FLUME WORKER-COLOR PRINT INSPECTOR Work Phone: [facility]05-08-2024 11:46-0400 Body .91 kgHolden Rosado FLUME WORKER-COLOR PRINT INSPECTOR Work Phone: [facility]05-08-2024 11:46-0400 Diastolic blood srurvcfe85 mm[Hg]Holden Rosado FLUME WORKER-COLOR PRINT INSPECTOR Work Phone: [facility]05-08-2024 11:46-0400 Heart rate62 /Jasbir Rosado FLUME WORKER-COLOR PRINT INSPECTOR Work Phone: [facility]05-08-2024 11:46-0400 Systolic blood yrscdfio121 mm[Hg]Holden Rosado FLUME WORKER-COLOR PRINT INSPECTOR Work Phone: [facility]05-01-2024 09:53-0400 Body xsehdv401.1 cmDO Nathan Ball Work Phone: 1(840)159[facility]69[facility]05-01-2024 09:53-0400 Body mass index (BMI) [Ratio]31.9 kg/m2DO Nathan Ball Work Phone: 1(665)038-[address] [place], [place] 6448205-01-2024 09:53-0400 Body eygvrl83.08 kgDO Nathan Ball Work Phone: 1(568)834-[address] [place], [place] 6448205-01-2024 09:53-0400 Diastolic blood mm[Hg]DO Nathan Ball Work Phone: 1(531)054-79[facility]05-01-2024 09:53-0400 Heart rate62 /minDO Nathan Ball Work Phone: 1(906)844-[address] [place], [place] 6448205-01-2024 09:53-0400 SaO2% (BldA) [Mass fraction]97 %DO Nathan Ball Work Phone: 1(256)344-[address] [place], [place] 6448205-01-2024 09:53-0400 Systolic blood ckyfwhqg675 mm[Hg]DO Nathan Ball Work Phone: 1(961)640-[address] [place], [place] 6448204-17-2024 10:30-0400 Body wjvfic680.1 cmA[facility]04-17-2024 10:30-0400Body mass index (BMI) [Ratio]32.8 kg/n0LlwqcxxplAdena Regional Medical Center04-17-2024 10:30-0400Body .35 kg[facility]04-17-2024 10:30-0400Diastolic blood tywlwmgv92 mm[Hg][facility] 02-13-2024 10:30-0400Heart rate56 /[facility] 02-13-2024 10:30-5533NkC7% (BldA) [Mass fraction]98 %[facility]04-17-2024 10:30-0400Systolic blood qyygnzym657 mm[Hg][facility]04-05-2024 11:01-0400Body jiouvh234.1 cmA[facility]04-05-2024 11:01-0400Body mass index (BMI) [Ratio]27.3 kg/k2CwguiosvlAdena Regional Medical Center04-05-2024 11:01-0400Body ubamio91.44 kgA[facility]a [facility] Center04-05-2024 11:01-0400Diastolic blood sjbfdzim77 mm[Hg] [facility]04-05-2024 11:01-0400Heart rate49 /[facility]04-05-2024 11:01-0400Respiratory rate12 /[facility]04-05-2024 11:01-0400Systolic blood zhvwtuwg982 mm[Hg] [facility]01-05-2024 11:00-0500Body knchaf939.1 cm Nathan Ball Other [employer] Other 01-05-2024 11:00-0500Body mass index (BMI) [Ratio] 31.78 kg/k1Rbggaret Ball Other [employer] Other 01-05-2024 11:00-0500Body aercoc26.64 kgBenjamin Ball Other [employer] Other 01-05-2024 11:00-0500Diastolic blood rlvptiri08 mm[Hg] Nathan Ball Other [facility] Other 01-05-2024 11:00-0500Respiratory rate16 /minBenjamin Ball Other [employer] Other 01-05-2024 11:00-0500Systolic blood evvmodmv002 mm[Hg] Nathan Ball Other [employer] Other 12-05-2023 09:45-0500Body rvgzul211.1 cmBenjamin Ball Other [employer] Other 12-05-2023 09:45-0500Body mass index (BMI) [Ratio] 31.61 kg/d4Agsaehea Ball Other [employer] Other 12-05-2023 09:45-0500Body .18 kgBenjamin Ball Other [employer] Other 12-05-2023 09:45-0500Diastolic blood ctfizdip84 mm[Hg] Nathan Ball Other [employer] Other 12-05-2023 09:45-0500Respiratory rate12 /minBenjamin Ball Other [employer] Other 12-05-2023 09:45-0500Systolic blood nuyflqjl364 mm[Hg] Nathan Ball Other [employer] Other 08-11-2023 11:15-0400Body okjhje393.1 cmBenjamin Ball Other [employer] Other 08-11-2023 11:15-0400Body mass index (BMI) [Ratio] 32.95 kg/w3Zwfkiyfl Ball Other [facility] Other 08-11-2023 11:15-0400Body wmrohw01.81 kgBeesa Hathaway Other [employer] Other 08-11-2023 11:15-0400Diastolic blood mm[Hg] Nathan Hathaway Other [employer] Other 08-11-2023 11:15-0400Respiratory rate12 /minBeesa Hathaway Other [employer] Other 08-11-2023 11:15-0400Systolic blood tfxmnuoe224 mm[Hg] Nathan Hathaway Other [employer] Other 08-07-2023 13:51-0400Body gedllthfirf07.7 [degF]Luis Mckenzie MD Work Phone: [facility]08-07-2023 13:51-0400Body .99 kgLuis Mckenzie MD Work Phone: [facility]08-07-2023 13:51-0400Diastolic blood hilpvqdf86 mm[Hg]Luis Mckenzie MD Work Phone: [facility]08-07-2023 13:51-0400Heart rate56 /min Luis Mckenzie MD Work Phone: [facility]08-07-2023 13:51-0400Respiratory rate 18 /minLuis Mckenzie MD Work Phone: [facility]08-07-2023 13:51-3432EcE8% (BldA) [Mass fraction]98 %Luis Mckenzie MD Work Phone: [facility]08-07-2023 13:51-0400Systolic blood mm[Hg]Luis Mckenzie MD Work Phone: [facility]07-28-2023 11:15-0400Body fpobyl442.1 cmBenjamin Ball Other [employer] Other 07-28-2023 11:15-0400Body mass index (BMI) [Ratio] 32.86 kg/t0Bewvqsgf Ball Other [employer] Other 07-28-2023 11:15-0400Body xmukxl96.59 kgBenjamin Ball Other [employer] Other 07-28-2023 11:15-0400Diastolic blood mm[Hg] Nathan Ball Other [employer] Other 07-28-2023 11:15-0400Respiratory rate16 /minBenjamin Ball Other [employer] Other 07-28-2023 11:15-0400Systolic blood ldwndyup493 mm[Hg] Nathan Ball Other [employer] Other 07-21-2023 15:30-0400Body xczclvructg08.7 [degF]DO Nathan Ball Work Phone: [facility]07-21-2023 15:30-0400 Diastolic blood zmmvaxvx12 mm[Hg]DO Nathan Ball Work Phone: [facility]07-21-2023 15:30-0400 Heart rate62 /minDO Nathan Ball Work Phone: [facility]07-21-2023 15:30-0400 Respiratory rate16 /minDO Nathan Ball Work Phone: [facility]07-21-2023 15:30-0400 SaO2% (BldA) [Mass fraction]95 %DO Nathan Ball Work Phone: [facility]07-21-2023 15:30-0400 Systolic blood cqiimgoy467 mm[Hg]DO Nathan Ball Work Phone: [facility]07-21-2023 05:39-0400 Body jdbolk67.1 kgDO Nathan [employer] Work Phone: [facility]07-20-2023 20:00-0400 Inhaled oxygen flow rate1.5 L/minDO Nathan Hathaway Work Phone: [facility]07-20-2023 15:54-0400 Body .72 cmDO Nathan [employer] Work Phone: [facility]07-19-2023 11:30-0400 Body .1 cmBenjamin Ball Other [employer] Other 07-19-2023 11:30-0400Body mass index (BMI) [Ratio] 33.28 kg/b5Osrxtbtp Ball Other [employer] Other 07-19-2023 11:30-0400Body .72 kgBenjamin Ball Other [employer] Other 07-19-2023 11:30-0400Diastolic blood rqvjjubb39 mm[Hg] Nathan Ball Other [employer] Other 07-19-2023 11:30-0400Respiratory rate16 /minBenjamin Ball Other [employer] Other 07-19-2023 11:30-0400Systolic blood myuetbcb715 mm[Hg] Nathan Ball Other [employer] Other 07-12-2023 11:15-0400Body .1 cmBenjamin Ball Other [facility] Other 07-12-2023 11:15-0400Body mass index (BMI) [Ratio] 32.75 kg/j7Pvpjgdla Ball Other [employer] Other 07-12-2023 11:15-0400Body udortm44.27 kgBenjamin Ball Other [employer] Other 07-12-2023 11:15-0400Diastolic blood dvpekymi49 mm[Hg] Nathan Ball Other [employer] Other 07-12-2023 11:15-0400Respiratory rate16 /minBenjamin Ball Other [employer] Other 07-12-2023 11:15-4196MeO0% (BldA) [Mass fraction]98 % Nathan Ball Other [employer] Other 07-12-2023 11:15-0400Systolic blood nmnpuicc743 mm[Hg] Nathan Ball Other [employer] Other 06-29-2023 11:30-0400Body qsaahu524.1 cmBenjamin Ball Other [employer] Other 06-29-2023 11:30-0400Body mass index (BMI) [Ratio] 32.53 kg/g6Qzekwxxm Ball Other [employer] Other 06-29-2023 11:30-0400Body alecga00.68 kgBenjamin Ball Other [employer] Other 06-29-2023 11:30-0400Diastolic blood gankvzqq38 mm[Hg] Nathan Ball Other [employer] Other 06-29-2023 11:30-0400Respiratory rate16 /minBenjamin Ball Other [employer] Other 06-29-2023 11:30-0400Systolic blood ptegcvlr946 mm[Hg] Nathan Ball Other [employer] Other 06-21-2023 09:45-0400Body hqtpno561.1 cmBenjamin Ball Other [employer] Other 06-21-2023 09:45-0400Body mass index (BMI) [Ratio] 33.28 kg/t0Jyxeljpy Ball Other [employer] Other 06-21-2023 09:45-0400Body jrocis95.72 kgBenjamin Ball Other [employer] Other 06-21-2023 09:45-0400Diastolic blood yjelyqpl35 mm[Hg] Nathan Ball Other [employer] Other 06-21-2023 09:45-0400Respiratory rate20 /minBenjamin Ball Other [employer] Other 06-21-2023 09:45-3888HsV7% (BldA) [Mass fraction]98 % Nathan Ball Other [employer] Other 06-21-2023 09:45-0400Systolic blood hpzuyjza481 mm[Hg] Nathan Ball Other [employer] Other 05-18-2023 10:45-0400Body cjyuju310.1 cmBenjamin Ball Other [facility] Other 05-18-2023 10:45-0400Body mass index (BMI) [Ratio] 31.95 kg/h2Fylbcuae Ball Other [employer] Other 05-18-2023 10:45-0400Body wmabhl47.09 kgBenjamin Ball Other [employer] Other 05-18-2023 10:45-0400Diastolic blood pimwhoxl10 mm[Hg] Nathan Ball Other [employer] Other 05-18-2023 10:45-0400Respiratory rate16 /minBenjamin Ball Other [employer] Other 05-18-2023 10:45-0400Systolic blood vstcpzyx502 mm[Hg] Anthan Ball Other [employer] Other 05-12-2023 17:00-0400Body bzysvtgaciw25.9 [degF]DO Nathan Ball Work Phone: [facility]05-12-2023 17:00-0400 Diastolic blood mhirkyaa57 mm[Hg]DO Nathan Ball Work Phone: 1(335)962-17[facility]05-12-2023 17:00-0400 Heart rate54 /minDO Nathan Ball Work Phone: [phone])[phone]05-12-2023 17:00-0400 Respiratory rate16 /minDO Nathan Ball Work Phone: [phone])[phone]05-12-2023 17:00-0400 SaO2% (BldA) [Mass fraction]96 %DO Nathan Ball Work Phone: [facility]05-12-2023 17:00-0400 Systolic blood bkechcci309 mm[Hg]DO Nathan Ball Work Phone: [facility]05-12-2023 08:11-0400 Body .1 cmDO Nathan Ball Work Phone: [facility]05-12-2023 08:11-0400 Body wzvmde88 kgDO Nathan Ball Work Phone: [phone]([phone]05-10-2023 10:14-0400 Diastolic blood zidgfcda22 mm[Hg]Nathan E Ball Work Phone: 1(509) 205-9990116-0312VS-Xvyvw [facility] [address] DO Work Phone: 1(722) 840-342405-10-2023 10:14-0400Systolic blood spuixhej616 mm[Hg] Nathan E Ball Work Phone: 1(179) 231-2825568-3891FA-Scqnd [facility] DO Work Phone: 1(203) 870-631205-10-2023 10:04-0400Body lswhtu380.1 cmBenjamin E Ball Work Phone: 1(956) 973-2934714-1421AV-Egbbc [facility] [address] DO Work Phone: 1(263) 954-752605-10-2023 10:04-0400Body mass index (BMI) [Ratio] 33.95 kg/s0Hkqzfgnv E Ball Work Phone: 1(641) 547-7639360-0750DA-Uwcoq [facility] [address] DO Work Phone: 1(756) 597-937405-10-2023 10:04-0400Body surface area Derived from formula1.99 b9Cstvxtpy E Ball Work Phone: 1(169) 251-7897143-0095GK-Pyhno [facility] DO Work Phone: 1(964) 982-681805-10-2023 10:04-0400Body aqpigv07.53 kgBenjamin E Ball Work Phone: 1(776) 592-4555012-2066RW-Nqkau [facility] DO Work Phone: 1(124) 778-832905-10-2023 10:04-0400Diastolic blood ypymvdnw13 mm[Hg] Nathan E Ball Work Phone: [phone]-Pvxyy [facility] DO Work Phone: 1(376) 257-320005-10-2023 10:04-0400Heart rate45 /minBenjamin E Ball Work Phone: [phone]-Vbgpe [facility] DO Work Phone: 1(717) 346-921805-10-2023 10:04-0400Systolic blood zcjpryul163 mm[Hg] Nathan E Ball Work Phone: [phone]-Xdolm [place] [facility] DO Work Phone: 1(970) 656-814504-19-2023 11:15-0400Body bixajz426.1 cmBenjamin Ball Other [employer] Other 04-19-2023 11:15-0400Body mass index (BMI) [Ratio] 32.61 kg/l1Dirwvmsb Ball Other [employer] Other 04-19-2023 11:15-0400Body nwsopz25.91 kgBenjamin Ball Other [employer] Other 04-19-2023 11:15-0400Diastolic blood dlccamjl06 mm[Hg] Nathan Ball Other [employer] Other 04-19-2023 11:15-0400Respiratory rate12 /minBenjamin Ball Other [employer] Other 04-19-2023 11:15-0400Systolic blood vuloxdtr509 mm[Hg] Nathan Ball Other [employer] Other 04-07-2023 12:15-0400Body turwbo311.1 cmBenjamin Ball Other [employer] Other 04-07-2023 12:15-0400Body mass index (BMI) [Ratio] 32.78 kg/u3Kfmxvatu Ball Other [employer] Other 04-07-2023 12:15-0400Body utabnq78.36 kgBenjamin Ball Other [employer] Other 04-07-2023 12:15-0400Diastolic blood sfnejjoi31 mm[Hg] Nathan Ball Other [employer] Other 04-07-2023 12:15-0400Respiratory rate12 /minBenjamin Ball Other [employer] Other 04-07-2023 12:15-0400Systolic blood mm[Hg] Nathan Ball Other [employer] Other 02-16-2023 10:00-0500Body bacegm706.1 cmBenjamin Ball Other [employer] Other 02-16-2023 10:00-0500Body mass index (BMI) [Ratio] 32.53 kg/m4Ncxkfbvv Ball Other [employer] Other 02-16-2023 10:00-0500Body dgsise88.68 kgBenjamin Ball Other [employer] Other 02-16-2023 10:00-0500Diastolic blood utxkxwgf74 mm[Hg] Nathan Ball Other [employer] Other 02-16-2023 10:00-0500Respiratory rate12 /minBenjamin Ball Other [employer] Other 02-16-2023 10:00-0500Systolic blood pulekeoy765 mm[Hg] Nathan Ball Other [facility] Other 02-06-2023 13:25-0500Body .4 cmLuis Mckenzie MD Work Phone: [facility]02-06-2023 13:25-0500Body temperature 97.11 [degF]Luis Mckenzie MD Work Phone: [facility]02-06-2023 13:25-0500Body yatfzv03.36 kgLuis Mckenzie MD Work Phone: [facility]02-06-2023 13:25-0500Diastolic blood aepffmnb76 mm[Hg]Luis Mckenzie MD Work Phone: [facility]02-06-2023 13:25-0500Heart rate63 /min Luis Mckenzie MD Work Phone: [facility]02-06-2023 13:25-0500Respiratory rate 16 /minLuis Mckenzie MD Work Phone: [facility]02-06-2023 13:25-6604HcY7% (BldA) [Mass fraction]96 %Luis Mckenzie MD Work Phone: [facility]02-06-2023 13:25-0500Systolic blood kevzpcwm601 mm[Hg]Luis Mckenzie MD Work Phone: [facility]01-17-2023 15:00-0500Body .1 cmBenjamin Ball Other [facility] Other 01-17-2023 15:00-0500Body mass index (BMI) [Ratio] 32.53 kg/v4Rcerhsbe Ball Other [facility] Other 01-17-2023 15:00-0500Body mdfoqd74.68 kgBenjamin Ball Other [facility] Other 01-17-2023 15:00-0500Diastolic blood vijsyfos03 mm[Hg] Nathan Hathaway Other [facility] Other 01-17-2023 15:00-0500Respiratory rate12 /minNathan Hathaway Other [facility] Other 01-17-2023 15:00-0500Systolic blood zvyzcefc277 mm[Hg] Nathan Hathaway Other [facility] Other 08-01-2022 10:06-0400Body gvstmo078.4 cmLuis Mckenzie MD Work Phone: [facility]08-01-2022 10:06-0400Body temperature 97.59 [degF]Luis Mckenzie MD Work Phone: [facility]08-01-2022 10:06-0400Body hqazdk39.72 kgLuis Mckenzie MD Work Phone: [facility]08-01-2022 10:06-0400Diastolic blood cahfcklj03 mm[Hg]Luis Mckenzie MD Work Phone: [facility]08-01-2022 10:06-0400Heart rate50 /min Luis Mckenzie MD Work Phone: [facility]08-01-2022 10:06-0400Respiratory rate 16 /minLuis Mckenzie MD Work Phone: [facility]08-01-2022 10:06-0055QtM8% (BldA) [Mass fraction]96 %Luis Mckenzie MD Work Phone: [facility]08-01-2022 10:06-0400Systolic blood afpcllxn277 mm[Hg]Luis Mckenzie MD Work Phone: [facility] Encounters Encounter DateEncounter TypeCare ProviderFacilityStart: 08-21-2025 End: 20-86-3449ljbbrldwqoSucczecq Fransico DO Work Phone: [facility] 08-21-2025 End: 28-69-1001Hnqnnos encounter procedureBenalberta Hathaway DO-[facility] Work Phone: Start: 08-19-2025 End: 00-45-2081Pdpevwk encounter procedureKaia Krishna APRN-Ultrasound [facility] Work Phone: Start: 08-19-2025 End: 52-97-7365plddyxlxetDijnmiao Fransico DO Work Phone: [phone]-QurtkjzegwKaiser Richmond Medical CenterStart: 26-77-8807Qlr-patient / Non-visitCatherine Sebastian [facility] Work Phone: Start: 42-28-9857Ysi-patient / Non-visitAgueda Saul MD-[facility] Work Phone: Start: 20-60-8309Txy-patient / Non-visitAgueda Saul MD-[facility] Work Phone: Start: 21-52-3053Hdk-patient / Non-visitSeth Baker DO-[facility] Work Phone: Start: 62-05-6167Hmz-patient / Non-visitCatherine Sebastian [facility] Work Phone: Start: 20-68-8238Qov-patient / Non-visitAgueda Saul MD-[facility] Work Phone: Start: 21-37-0586Lnp-patient / Non-visitCher Singh DO-[facility] Work Phone: Start: 08-04-2025 End: 77-11-7143xdjsavqxmpRargzmiw Fransico DO Work Phone: [facility] Work Phone: Start: 08-04-2025 End: 30-52-9088Efoyurp encounter Armando Krishna APRN-[facility] Work Phone: Start: 07-21-2025 End: 83-79-9109vrtygvmnwaFvwqmckp Fransico DO Work Phone: [facility] Work Phone: Start: 07-21-2025 End: 72-94-3176Hrtpwxr encounter procedureNathan Hathaway DO-[facility] Work Phone: Start: 65-31-5855Vhc-patient / Non-visitValentin Leonard MD-[facility] Work Phone: Start: 07-15-2025 End: 21-07-2358ecmwqjchmiTMROIAEG E BALLFacility:[facility] Centertart: 07-10-2025 End: 80-39-6556Bnenkkkkh encounterValentin Leonard MD Work Phone: Cancer Appts MCComment on above:Orders; Patient Update Start: 07-08-2025 End: 03-28-9163Ixpggorna encounterPaolo Casillas APRN.CNP Work Phone: Cancer Appts MCComment on above:ResultsStart: 07-08-2025 End: 38-63-5259Vapsvup encounter Spencer Casillas APRN.CNP Work Phone: Hematology/OncologyStart: 46-90-8487Uxj-patient / Non-visitFanny Bedoya APRN ENTRY TECH-C-[facility] Work Phone: Start: 07-08-2025 End: 50-76-6448miouapwyamWcthgAngelia Casillas APRN.CNP Work Phone: Hematology/OncologyComment on above:Abnormal SPEP (Primary Dx); Primary hypertension; Hyperlipidemia, unspecified hyperlipidemia type; Heart disease; Edema, unspecified type; Monoclonal gammopathy of undetermined significance; Anemia in other chronic diseases classified elsewhereStart: 07-06-2025 End: 49-66-5061Meuyomvii encounteruLdyly Sandoval SANDOVALNManuelCOLOR PRINT INSPECTOR Work Phone: Hematology/OncologyComment on above:Lab Orders (nt) Start: 36-05-0155Uou-patient / Non-visitBenjamin Ball DO-[facility] Work Phone: Start: 78-24-0386Nxd-patient / Non-visitBenjamin Ball DO-[facility] Work Phone: Start: 06-19-2025 End: 26-12-0165mhrqpmaicpIigtbgot Ball DO Work Phone: [facility] Work Phone: Start: 06-19-2025 End: 74-17-8931Ojbgshc encounter procedureBenjamin Ball DO-[facility] Work Phone: Start: 05-19-2025 End: 89-17-5167ainaibbqipSlockfxz Ball DO Work Phone: [facility] Work Phone: Start: 05-19-2025 End: 56-01-7464Vgpjolb encounter procedureBenjamin Ball DO-[facility] Work Phone: Start: 03-19-2025 End: 48-87-4133ykgfsfrsqsIbeowzyx Ball DO Work Phone: [facility] Work Phone: Start: 03-19-2025 End: 70-40-3997Kmlkmul encounter procedureBenjamin Ball DO Work Phone: [facility] Work Phone: Start: 16-53-7318Xah-patient / Non-visitBenjamin Ball DO Work Phone: [facility] Work Phone: Start: 03-17-2025 End: 05-33-5296Hdlxpharfc hospital visit by physicianLaura Blair Echo/Vasc Room [address] [place], [place] [address]Comment on above:Essential hypertension; PalpitationsStart: 03-17-2025 End: 44-89-3316axaupubvruTYRHN [facility] Start: 03-13-2025 End: 58-36-6877Asmavoa encounter procedureBegonzálezalberta Hathaway DO Work Phone: [facility] Work Phone: Start: 02-25-2025 End: 06-84-9282Bvgxmc flowsheetReyna Esparza MD Work Phone: [facility] CI ENTStart: 02-25-2025 End: 73-02-4981Arceiw flowsGuy Esparza MD Work Phone: [facility] CI ENTStart: 02-25-2025 End: 31-83-3988Vhtdqm outpatient visit 15 minutesReyna Esparza MD Work Phone: [facility] CI ENTComment on above:Nontoxic multinodular goiter (CMS/HCC) (Primary Dx)Start: 02-25-2025 End: 71-37-4260hclorlxifvRBNFBR H TIMMISNot AvailableStart: 02-12-2025 End: 03-84-1695Maixesnqw department patient visitBenalberta Hathaway DO Work Phone: [facility]-Emergency Room Work Phone: Start: 02-10-2025 End: 15-79-6874Rnjoiywwa Result EncounterReyna Esparza MD Work Phone: [facility] External Department UnsolicitedStart: 02-10-2025 End: 56-58-5736Kkjyzbyky Result EncounterReyna Esparza MD Work Phone: noms External Department UnsolicitedStart: 01-26-2025 End: 82-55-0866iojqvtdoebPXQQE [facility] AmbulatoryStart: 43-15-9559God-patient / Non-visitBenjamin Ball DO Work Phone: [facility] Work Phone: Start: 01-22-2025 End: 98-91-5289txofilyvsbBjxpebng Ball DO Work Phone: [facility] Work Phone: Start: 01-22-2025 End: 06-34-2635Hsdxjgl encounter procedureBenjamin Ball DO Work Phone: [facility] Work Phone: Start: 01-12-2025 End: 58-31-7733Apzlce outpatient visit [facility] centerHolden Lambert [facility] CenterN-[facility] Work Phone: uh [facility]sonComment on above:BMI 33.0-33.9,adult (Primary Dx); Essential hypertension; Palpitations; ASHD (arteriosclerotic heart disease); Mixed hyperlipidemiaStart: 01-12-2025 End: 71-65-0681pkrmtihmcrDQUJGTaylor [facility] Hospital AmbulatoryStart: 12-29-2024 End: 01-33-5091yukrevvmvtQjqmtnlw Ball DO Work Phone: [facility] Work Phone: Start: 12-29-2024 End: 65-75-2097Aoqebrt encounter procedureBenjamin Ball DO Work Phone: [facility] Work Phone: Start: 21-77-1320Oyf-patient / Non-visitBenjamin Ball DO Work Phone: [facility] Work Phone: Start: 12-16-2024 End: 07-50-5207Hylksns encounter procedureBenjamin Ball DO Work Phone: [facility] Work Phone: Start: 11-25-2024 End: 69-03-3255Jrpqpa flowsheetReyna Esparza MD Work Phone: [facility] CI ENTStart: 11-25-2024 End: 16-34-4871Maxdsa Zoraida Esparza MD Work Phone: [facility] CI ENTStart: 11-25-2024 End: 25-11-6127Isvsqs outpatient new 45 minutesReyna Esparza MD Work Phone: [facility] CI ENTComment on above:Thyroid nodule (CMS/HCC) (Primary Dx)Start: 11-25-2024 End: 25-08-8847oqvrdnrcanOOECDW H TIMMISNot AvailableStart: 52-90-5444wufunejjmi Nathan Ball DO Work Phone: [facility] Work Phone: Start: 41-02-2326Igx-patient / Non-visitBenjamin Ball DO Work Phone: [facility] GroupAst[facility] Work Phone: Start: 11-17-2024 End: 89-31-0745Nfaeyhnit to same day surgery centerBenjamin Ball DO Work Phone: [facility]-Ultrasound Main [facility] Work Phone: Start: 11-17-2024 End: 23-66-7325tmpuocqqnnDausxzno Ball DO Work Phone: [facility] Work Phone: Start: 10-09-2024 End: 09-80-6450LwwblhAnimxwf [facility] COT Work Phone: noms OPHTStart: 10-08-2024 End: 18-59-2723Ggvedg outpatient visit 25 minutesEdinson Perry DO Work Phone: uh [place]landsComment on above:ASHD (arteriosclerotic heart disease); Essential hypertension; BMI 33.0-33.9,adult; Former smoker; S/P PTCA (percutaneous transluminal coronary angioplasty); Mixed hyperlipidemia; Coronary arteriosclerosis after percutaneous transluminal coronary angioplasty (PTCA)Start: 10-08-2024 End: 98-28-9248mxzplyfntwYTPBEQANortheast [facility] Medical Center [facility] AmbulatoryStart: 57-10-1091Rui-patient / Non-visitBegonzálezalberta Hathaway DO Work Phone: [facility] Work Phone: Start: 09-11-2024 End: 69-09-3949plkbuyfrslGmlopfqofKnox Community Hospital Work Phone: Start: 09-11-2024 End: 78-55-2700Ommfmbb encounter procedureAt[facility] Work Phone: Start: 01-32-7644Cwd-patient / Non-visitAt[facility] Health [facility] Work Phone: Start: 07-16-2024 End: 08-02-4559odlugscgocXoqlcogdgKnox Community Hospital Work Phone: Start: 07-16-2024 End: 57-71-2210Xqhvqds encounter procedureAt[facility] Work Phone: Start: 06-03-2024 End: 83-69-9509ihlbhzzifhRF Nathan [employer] Work Phone: [facility] Work Phone: Start: 06-03-2024 End: 36-92-8891Ilunnlf encounter procedureDO Nathan [employer] Work Phone: [facility] Work Phone: Start: 75-15-6121Vlm-patient / Non-visitDO Nathan [employer] Work Phone: [facility] Work Phone: Start: 06-68-4824Hbg-patient / Non-visitDO Nathan [employer] Work Phone: [facility] Work Phone: Start: 04-28-2024 End: 07-52-4633xpbuxktntxUDFKIHCW D ZAHLERNot AvailableStart: 04-21-2024 End: 14-35-3242Sfudbz outpatient visit 15 minutesHolden Rosado FLUME WORKER-COLOR PRINT INSPECTOR Work Phone: uh [facility] AnsonComment on above:Essential hypertension (Primary Dx); ASHD (arteriosclerotic heart disease); Mixed hyperlipidemia; BMI 32.0-32.9,adultStart: 04-21-2024 End: 27-17-7812rbvvqftugcVBBRS [facility] AmbulatoryStart: 03-12-2024 End: 68-51-9992Xyyozqdtxc hospital visit by Derrick Zaidi 1[facility] ServicesComment on above:ASHD (arteriosclerotic heart disease)Start: 03-05-2024 End: 36-75-9520jvdxhniycvGU Nathan [employer] Work Phone: [facility] Work Phone: Start: 03-05-2024 End: 85-55-1614Yhhmvnc encounter procedureDO Bountii Work Phone: [facility]-Lab Main [facility] Work Phone: Start: 03-05-2024 End: 21-11-0555Oanqbo outpatient visit 25 minutesHolden Rosado FLUME WORKER-COLOR PRINT INSPECTOR Work Phone: uh [facility] AnsonComment on above:ASHD (arteriosclerotic heart disease) (Primary Dx); Essential hypertension; Mixed hyperlipidemia; BMI 32.0-32.9,adultStart: 02-27-2024 End: 78-59-5193Ojqcial encounter procedureDO Bountii Work Phone: [facility] GroupEn[facility] Work Phone: Start: 98-26-3849Naz-patient / Non-visitDO Bountii Work Phone: [facility] GroupAst[facility] Work Phone: Start: 04-18-9988Szp-patient / Non-visitDO Nathan Hathaway Work Phone: [facility] Work Phone: Start: 08-61-1680Svp-patient / Non-visitDO Nathan Hathaway Work Phone: [facility] Work Phone: Start: 06-46-0185Mpg-patient / Non-visitDO Nathan Hathaway Work Phone: [facility] Work Phone: Start: 02-13-2024 End: 91-14-0852tyggimejprWdieqmrviKnox Community Hospital Work Phone: Start: 02-13-2024 End: 87-79-3445Ecgvdvl encounter procedureAt[facility] Work Phone: Start: 48-42-0324Lar-patient / Non-visitFirelands Physician Group-[facility] Work Phone: Start: 02-01-2024 End: 27-35-3088wfhoxcxxwxCshsvlnniKnox Community Hospital Work Phone: Start: 02-01-2024 End: 37-80-5157Mykbkqv encounter procedureAt[facility] Health [facility] GroupMer[facility] Work Phone: Start: 01-04-2024 End: 37-52-8982tbybyamvlzBnapihcy Ball Other [facility] Other Start: 63-85-8152Zlrcdnmeh encounterBenairam HathawayAvita Health System [facility] Hospitaltart: 35-57-5625Rxm-patient / Non-visitFirmorganfields Physician Group-[facility] Work Phone: Start: 11-27-2023 End: 74-99-2847eqtovuyhcuLkudnhxb [employer] Other [facility] Other Start: 50-46-4296Uqowmhmxs encounterBenjamin BallFPG [facility] ClinicStart: 11-02-2023 End: 37-22-7995omryiykoynBtumajdi Ball Other [employer] [facility] Other Start: 88-00-8907Yjmrug outpatient visit 25 minutes Nathan BallFPG [facility] ClinicStart: 10-02-2023 End: 29-63-6789pcamsocgjbXuwdlamm Ball Other [facility] Other Start: 19-88-6863Ugvdzp outpatient visit 25 minutes Nathan BallFPG [facility] ClinicStart: 09-26-2023 End: 15-33-1332wmxwtrfgdwErpmtydv Ball Other [facility] Other Start: 76-72-9650Oygydnlca encounterBenjamin BallFPG [facility] ClinicStart: 09-21-2023 End: 04-96-7321qguflqochwTsxizfow Ball Other [facility] Other Start: 36-21-3654Jczsanaog encounterBenjamin BallFPG [facility] ClinicStart: 2023 End: 33-04-8592nrpypslmygEbylwyvx Ball Other [facility] Other Start: 01-70-9721Tpzhvgozj encounterBenjamin BallFPG [facility] ClinicStart: 09-13-2023 End: 41-12-7754dmfyxjlegxTgajxhox Ball Other [employer] Other Start: 05-38-1547Mqjfsyhrf encounterBenjamin BallFPG [facility] ClinicStart: 09-11-2023 End: 32-70-5484pugmvreiwcGihbxrri Ball Other [facility] Other Start: 30-97-8750Ldaoiv outpatient visit 15 minutes Nathan BallFP[facility] ClinicStart: 08-16-2023 End: 55-01-1343edsbssuognDrnffpud Ball Other [employer] Other Start: 63-04-6678Nnzakbtji encounterBenjamin BallFP[facility] ClinicStart: 07-31-2023 End: 00-13-1922esgduxqgpoZkgrbyux Ball Other [facility] Other Start: 99-39-7185Otescftco encounterBenjamin BallFP[facility] ClinicStart: 07-30-2023 End: 81-24-9221mbwwncnynpYyrbnbxr Ball Other [facility] Other Start: 70-46-6353Xfghcdwod encounterBenjamin BallFP[facility] ClinicStart: 07-19-2023 End: 20-00-2782bokdeikagjXgenubta Ball Other [employer] Other Start: 82-90-2219Sukovdefx encounterBenjamin BallFP[facility] ClinicStart: 07-18-2023 End: 63-83-4794howcdvzyqmGtqyzzyb Ball Other [facility] Other Start: 46-25-3197Dpxsyutqi encounterBenjamin BallFP[facility] ClinicStart: 07-17-2023 End: 38-97-8756leswnxjkcbViazades Ball Other [facility] Other Start: 24-89-9258Xhhmhvf evaluation of patient and reportBenjamin BallFPG [facility] ClinicStart: 06-28-2023 End: 27-94-0040tqohartcliRwenxxkn Ball Other [facility] Other Start: 15-91-8424Dqcyfjrhw encounterBenjamin BallFP[facility] ClinicStart: 06-25-2023 End: 97-30-8994mmsfsfzcjiMadqfgyc Ball Other [employer] Other Start: 63-62-2292Wjohqqvux encounterBenjamin BallFP[facility] ClinicStart: 06-21-2023 End: 05-00-9524zteeydfbuiVynijvin Ball Other [facility] Other Start: 71-18-8580Jbrucywde encounterBenjamin BallFP[facility] ClinicStart: 06-19-2023 End: 60-97-5165zdpsrpburpOhlmhysc Ball Other [facility] Other Start: 01-53-8808Yzuhapipb encounterBenjamin BallFP[facility] ClinicStart: 06-18-2023 End: 34-51-9624lgspeyyxkxBxkrbmrz Ball Other [facility] Other Start: 65-06-2659Btedfqjiv encounterBenjamin BallFP[facility] ClinicStart: 06-15-2023 End: 85-83-9507vsuslegrfvOtyroujy Ball Other [facility] Other Start: 64-93-6102Xyisaoaia encounterBenjamin BallFP[facility] ClinicStart: 06-08-2023 End: 15-75-3049roktelluluFxutowyk Ball Other [facility] Other Start: 34-19-3930Cnqpkb outpatient visit 15 minutes Nathan BallFP[facility] ClinicStart: 27-24-3486Xqqvoasyu encounterNatcameron Manzanares RNHematology/OncologyComment on above:ResultsStart: 06-04-2023 End: 90-99-3029zaimphxwdaWktfo R Murphy MD Work Phone: [facility] Other Comment on above:Abnormal SPEP (Primary Dx); Anemia, unspecified type; Neuropathy - (NOS); Heart diseaseStart: 06-04-2023 End: 63-86-0157Oplmowa encounter procedureLuis Mckenzie MD Work Phone: SANDUSKYStart: 18-05-4818Zdndkcoja encounterBenjuanairam Hathaway Medical ClinicStart: 06-01-2023 End: 53-45-3335lshusgqenwVutorkim Ball Other [employer] Other Start: 39-66-0681Xpggisdoe encounterBenjuanmin YelenaG [facility] Medical ClinicStart: 05-25-2023 End: 24-53-8773mouqannvviHapnrlls Ball Other [employer] Other Start: 63-87-5922Omhvxqertfmb care manage srvc 14 day dischargeBenalberta Hathaway Medical ClinicStart: 05-17-2023 End: 25-57-9745Hehdhukzkk and management of inpatientDO Nathan Hathaway Work Phone: [facility] [place] [facility] Work Phone: Start: 05-17-2023 End: 17-54-9711cqudonmbpdt encounterDO Nathan Hathaway Work Phone: [facility] Work Phone: Start: 05-16-2023 End: 62-69-0221itzrftodzkEiwhgtiv Ball Other [employer] Other Start: 25-30-8164Vtisjf outpatient visit 25 minutes Nathan [facility]FP[facility] ClinicStart: 05-09-2023 End: 94-36-7074sgvfnhiepbYkjmdsgj Ball Other [facility] Other Start: 54-22-4290Pgzjim outpatient visit 25 minutes Nathan BallFP[facility] ClinicStart: 49-87-3369Qwyjwibxm encounterBenjamin E Ball Work Phone: [phone]-Uiauj [facility] DO Work Phone: Start: 04-26-2023 End: 25-15-1138nuhmxmdmezBinvepwo Ball Other [facility] Other Start: 51-86-7783Mglxmi outpatient visit 25 minutes Nathan [facility]FP[facility] ClinicStart: 43-66-4844Nmvlaivlx encounterBenjamin BallFP[facility] ClinicStart: 04-18-2023 End: 64-65-2511xymprursxpEwpyjjiu Ball Other [facility] Other Start: 28-55-1521Eujxna outpatient visit 25 minutes Nathan [facility] ClinicStart: 17-50-0984Sqvvfntts encounterBenjamin BallFP[facility] ClinicStart: 03-27-2023 End: 53-45-6630hpclkemzsnGywbnimg Ball Other [facility] Other Start: 91-74-2017Lhepvrsdu encounterBenjamin BallFP[facility] ClinicStart: 03-15-2023 End: 81-94-7867genzmoslfzDmgelqlv Ball Other [facility] Other Start: 63-92-4066Vcvccu outpatient visit 25 minutes Nathan Ball[facility] ClinicStart: 03-09-2023 End: 01-21-9056lieulwvqofLiManuel PerryDental Fix RX Other Start: 18-80-7709Tvhvrqehi encounterBenjamin BallZHAOG Fr[facility]ico Medical ClinicStart: 99-49-4960IBYSUMXHG, Provider: Edinson Perry, Status: Pen, Time: 10:00 AMBenjamin Chinyere Ball Work Phone: [phone]-Mgkuo [facility] DO Work Phone: Start: 03-09-2023 End: 91-77-0957Lvxzkngfd to same day surgery sunflowerDO Nathan Hathaway Work Phone: [facility]-Technical Sales Support Manager Work Phone: Start: 03-08-2023 End: 92-68-8873dizgoopvhjCQ Nathan Hathaway Work Phone: [facility] Work Phone: Start: 03-08-2023 End: 90-82-6156Mukioug encounter procedureDO Nathan Hathaway Work Phone: [facility] Ijr-Vzw-Fdteyoif Testing Work Phone: Start: 82-03-8866Cfvjpf consultation new/estab patient 80 minBenjamin Chinyere Ball Work Phone: [phone]-Ullfw [facility] DO Work Phone: Start: 62-89-6397rknqzgagxpYv. Edinson Perry Facility:[id number]: 03-05-2023 End: 72-72-4482fdblugzprfMgriefmw Ball Other [employer] Other Start: 92-97-5382Cypkqobhc encounterBenalberta Hathaway Medical ClinicStart: 03-01-2023 End: 32-05-1192bscgscyxneNU BENJAMIN BALLFacility:Y3Mxadc: 02-27-2023 End: 84-44-9514kayqujhtaiCwfnlzjb Ball Other [facility] Other Start: 68-34-0036Hzstiajzw encounterBenjamin BallFP[facility] ClinicStart: 02-20-2023 End: 07-21-8977trewglheepWddsabbk Ball Other [facility] Other Start: 61-66-7552Eyjkxrfdy encounterBenjamin BallFP[facility] ClinicStart: 02-14-2023 End: 48-24-0033fziuiazpsvJkjldkcw Ball Other [facility] Other Start: 01-40-8517Ffsmwd outpatient visit 25 minutes Nathan BallFP[facility] ClinicStart: 27-83-2328Mbdauqyvu encounterBenjamin BallFP[facility] ClinicStart: 02-11-2023 End: 17-64-1586nyghbyslzlHjoliouw Ball Other [facility] Other Start: 80-03-4256Qtcosxmvl encounterBenjamin BallFP[facility] ClinicStart: 02-08-2023 End: 72-53-5781Ntzwzuttpk and management of inpatientDR NATHAN BALLFacility:H1 Start: 02-02-2023 End: 19-99-3582jpywafcdxnBlqgxqrh Ball Other [facility] Other Start: 63-19-7112Zefoxu outpatient visit 25 minutes Nathan Ball[facility] ClinicStart: 01-08-2023 End: 24-46-2535wzaasmmmbwCW NATHAN BALLFacility:C6Pnfdb: 12-21-2022 End: 72-63-8681bvgdqzwdukSjidjyeu Ball Other [facility] Other Start: 22-30-9585Kwhfuemcu encounterBenjamin BallFP[facility] ClinicStart: 12-20-2022 End: 46-34-0627upgjqypgjySqfglvow Ball Other [employer] Other Start: 09-65-7099Eoqobwphi encounterBenalberta Hathaway Medical ClinicStart: 12-14-2022 End: 43-59-1609bshlzwvcowUasoesmq Ball Other [employer] Other Start: 88-10-8205Nplspuy encounter procedureBenalberta Hathaway Medical ClinicStart: 12-04-2022 End: 73-79-9622xkiuefafuuEvwsw R Murphy MD Work Phone: Hematology/OncologyComment on above:Abnormal SPEP (Primary Dx); Neuropathy - (NOS); Lung nodulesStart: 12-04-2022 End: 81-66-8390Itexxll encounter procedureLuis Mckenzie MD Work Phone: SANDUSKYStart: 11-23-2022 End: 51-15-8178rfqkoqxlojWuepyekl Ball Other [employer] Other Start: 09-28-1476Xfirehwip encounterBenalberta Hathaway Medical ClinicStart: 11-16-2022 End: 12-61-0010wmfgpomuljBJ NATHAN BALLFacility:O7Qrayj: 11-14-2022 End: 21-48-1910zhlqcczhejDpmiviil Ball Other [employer] Other Start: 29-11-4266Vlelpb outpatient visit 25 minutes Nathan Hathaway Medical ClinicStart: 09-11-2022 End: 11-32-7753ykcxamlfsmOS NATHAN BALLFacility:D0Vdafj: 52-64-0973Tgkiuuncw encounterNatcameron Manzanares RNHematology/OncologyComment on above:ResultsStart: 08-28-2022 End: 18-44-9691Pcdfuopttf hospital visit by physicianArrival Time Radiology Work Phone: Radiology Pet CTComment on above: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]Start: 05-29-2022 End: 83-46-7730Ekcer ([place]) OfficeLuis Mckenzie MD Work Phone: Hematology/OncologyComment on above:Abnormal SPEP (Primary Dx); Neuropathy - (NOS); Disorder of adrenal gland (HCC); Lung nodulesStart: 14-87-5366Tolygkwpq encounterLuis Mckenzie MD Work Phone: Hematology/OncologyComment on above:Lab OrdersStart: 05-04-2022 End: 27-44-1722znzrlcuidkFM NATHAN HATHAWAYFacility:I9Lbbkm: 92-26-0127Lizdw health examinationBenjuanTwingly Other [facility] Other Procedures DateProcedureProcedure DetailPerforming ClinicianStart: 84-53-6608Rqaaat scan of lower limb veinsBenPostify DO Work Phone: Start: 18-56-9349Prjli volume recorder pneumoplethysmographyBenjamin Ball DO Work Phone: Start: 92-99-9220Yobmf chest X-rayBenjamin Ball DO Work Phone: Start: 26-28-4460Ih soft tissue head & neck real time imge Cindy Esparza MD Work Phone: Start: 16-30-9450CqvyuqrlcnMjwitvbh Ball DO Work Phone: Start: 10-56-0495Wa strs tst xers&/or rx cont ecg trcg onlyHolden Rosado FLUME WORKER-COLOR PRINT INSPECTOR Work Phone: Start: 13-94-5738Mzxgula of placement of stent for coronary artery diseaseS/P coronary artery stent placementHolden Rosado FLUME WORKER-COLOR PRINT INSPECTOR Work Phone: Start: 47-63-7817ML angiography of thoraxDO Bountii Work Phone: Start: 16-53-2485Awaocg scan of lower limb veinsDO Nathan Hathaway Work Phone: Start: 95-25-5395XP Ivus Initial VesselDO Nathan Hathaway Work Phone: Start: 59-74-7270DO LHC & COR AngioDO Nathan Hathaway Work Phone: Start: 48-37-1186SW Stent 1st Vessel LAD DESDO Nathan Hathaway Work Phone: Start: 84-55-2186WA Stent 1st Vessel RCA DESDO Nathan Hathaway Work Phone: Start: 33-33-4456Jk abdomen & pelvis w/contrast Maynor Mckenzie MD Work Phone: Start: 37-18-8309Es thorax w/contrast Maynor Mckenzie MD Work Phone: Start: 07-34-1412Ysaqy depression screening assessment Luis Mckenzie MD Work Phone: Start: 41-85-2096Lmyqd depression screening assessment Luis Mckenzie MD Work Phone: Start: 24-09-6213Czzpfwkqa for malignant neoplasm of colonBenjamin Ball Other Start: 98-96-4711Xtltcsjpu for osteoporosisBenjamin Ball Other Depression screeningBenjamin Ball Other HysterectomyBenjamin E Ball Work Phone: Screening for malignant neoplasm of breastBenjamin Ball Other Screening for malignant neoplasm of breastBenjamin Ball Other Total colonoscopyBenjamin E Ball Work Phone: Comment on above:2012; Plan of Treatment DateCare ActivityDetailAuthorStart: 18-17-1754Kblqsfhg ScreeningDiabetes ScreeningCleselect medical specialty [facility] ClinicStart: 59-85-1046Tbjsywon ScreeningDiabetes Screening [facility] ClinicStart: 84-21-4007Erjzjpfj ScreeningDiabetes ScreeningCleselect medical specialty [facility] ClinicStart: 16-48-7003CIJTEAAR SCREENDIABETES SCREENWestport ClinicStart: 43-02-7609CIWZFWPR SCREENDIABETES SCREENWestport ClinicStart: 10-27-2025 End: 27-03-0843Zglatgz encounter /30/2025 2:10 PM EST Office Visit [facility] [address] [facility] [address] [place] [address] Edinson Perry, [address] [facility] [address] [place] [address] [facility] CenterStart: 10-07-2025 End: 17-34-0725jhpujctrio58/10/2025 3:00 PM EST Visit (SP) Office Hematology/Oncology [address] [place], [place] [phone] Valentin Leonard MD [address] [place] [address] 3 month ELDON with labHematology/OncologyComment on above:3 month ELDON with labStart: 10-07-2025 End: 19-14-1780Intoeqy encounter iwudjpjco40/10/2025 2:45 PM EST Office Visit [facility] [address] [place] [address] 3 month ELDON with labNortRehabilitation Institute of Michigan LaboratoryComment on above:3 month ELDON with labStart: 76-06-0717GIGKBTVT SCREEN DIABETES SCREENWestport ClinicStart: 73-00-4572Wglnovo referralSumma Health Work Phone: Start: 07-08-2025 End: 45-34-4605mgrnwggupq96/10/2025 10:00 AM EDT Visit (SP) Office Hematology/Oncology [address] [place] [address] Paolo Casillas, THONY.COLOR PRINT INSPECTOR [address] [place] [address] Dr Hathaway 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 MGUSHematology/OncologyComment on above:Dr Hathaway 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 MGUSStart: 07-08-2025 End: 15-48-2677Ptwtwta encounter mfbanyknf39/10/2025 10:00 AM EDT Office Visit [facility] [address] [place] [address] [place] [address] Labs Per January Staff MessageNortRehabilitation Institute of Michigan LaboratoryComment on above:Labs Per January Staff MessageStart: 07-06-2025 End: 73-14-2099OEZ W Auto Differential panel - BloodCOMPLETE BLOOD COUNT AND DIFFERENTIAL Lab Routine Abnormal SPEP Expected: 07/06/2025, Expires: 10/05/2025 [facility] Work Phone: Comment on above:Expected: 07/06/2025, Expires: 10/05/2025Start: 07-06-2025 End: 69-21-8365Gokehvgadxhoa metabolic 2000 panel - Serum or PlasmaCOMPREHENSIVE METABOLIC PANEL Lab Routine Abnormal SPEP Expected: 07/06/2025, Expires: 10/05/2025leveland ClinicComment on above:Expected: 07/06/2025, Expires: 10/05/2025Start: 07-06-2025 End: 02-66-4942CUYSSOINZI PROTEIN, SERUM (BLOOD)MONOCLONAL PROTEIN, SERUM (BLOOD) Lab Routine Abnormal SPEP Expected: 07/06/2025, Expires: 10/05/2025 [facility] HospitalComment on above:Expected: 07/06/2025, Expires: 10/05/2025Start: 07-06-2025 End: 66-73-7680WBKRFHW ELECTROPHORESIS SERUM W/INTERPPROTEIN ELECTROPHORESIS SERUM W/INTERP Lab Routine Abnormal SPEP Expected: 07/06/2025, Expires: leveland ClinicComment on above:Expected: 07/06/2025, Expires: 10/05/2025 Start: 58-10-3120Kcnbycsgt vaccinationInfluenza Vaccine (#1)[facility] Start: 45-73-8628SKXENEIX SCREENDIABETES SCREENMansfield Hospitaltart: 05-04-2025 COVID-19 Vaccine ( season)COVID-19 Vaccine () [facility] CenterStart: 04-29-2025 End: 40-77-1668Vuwbsal encounter tdzvmaiue05/02/2025 9:30 AM EDT Office Visit [facility] [address] [place] [phone] Fercho Tse DO [address] [place] [address] [facility] OPHTStart: 03-17-2025 End: 45-38-5809Qtphlsk encounter wuizdmpsw08/20/2025 10:45 AM EDT Appointment [place] [address] [phone] [facility] ServicesStart: 02-25-2025 End: 42-29-5503Smhjpte encounter procedureNOMS CI ENTComment on above:Arrived Start: 01-26-2025 End: 89-12-2991Byujcrphwzvx / ancillary services vrujzkgxpu05/31/2025 3:00 PM EDT Ancillary Procedure [address] [place] [address] PJ FirelandsStart: 01-12-2025 End: 64-74-4673Cpvdsf monitor studyHolter Or Event Applications Engineering Manager Cardiac Services Routine Palpitations Expected: 01/12/2025 (Approximate), Expires: 01/12/2026[facility] Service Area Work Phone: Comment on above:Expected: 01/12/2025 (Approximate), Expires: 01/12/2026Start: 01-12-2025 End: 36-73-7030UI Heart TransthoracicTransthoracic Echo Complete Echocardiography Routine Essential hypertension Palpitations Expected: 0 01/12/2025 (Approximate), Expires: 01/12/2027[facility] Work Phone: Comment on above:Expected: 01/12/2025 (Approximate), Expires: 01/12/2027Start: 11-25-2024 End: 05-58-9526Ryrsmra encounter gnwoprlgy38/28/2025 2:00 PM EST Office Visit [facility] [address] [place] [address] Reyna Esparza MD [address] [place] [address] ArrivedNOMS CI ENTComment on above:ArrivedStart: 93-21-1474Csvkpao referralSumma Health Work Phone: Start: 97-32-1606MjiipybfjAdena Regional Medical Center Start: 84-72-0375YmbmkthkifNeuklqtgyOhio Valley Hospitaltart: 10-29-2024 Advance Directive DiscussionAdvance Directive DiscussionMansfield Hospitaltart: 10-08-2024 End: 57-14-4124Oqiemus encounter hgtlrdevo17/11/2024 10:40 AM EST Office Visit [place] [phone] [facility] [address] [place] [address] Edinson Perry [address] [facility] [place] [address] [facility] CenterStart: 38-47-0065Uqyrw-19 Vaccine ( season)Covid-19 Vaccine ( season)[facility] Hospitaltart: 84-73-8718Qbkpctcrp vaccinationAdams County Regional Medical CenterStart: 04-21-2024 End: 64-62-4579Lokgg metabolic 2000 panel - Serum or PlasmaBasic Metabolic Panel Lab Routine ASHD (arteriosclerotic heart disease) Expected: 04/21/2024 (Approx imate), Expires: 04/21/2025[facility] Service Area Work Phone: Comment on above:Expected: 04/21/2024 (Approximate), Expires: 04/21/2025Start: 04-21-2024 End: 06-28-6226Ivohdix encounter tmaloripx78/24/2024 10:30 AM EDT Office Visit [facility] [address] [facility] [address] [place] [address] Holden Rosado, FLUME WORKER-COLOR PRINT INSPECTOR [address] [place] [address] [facility] CenterStart: 03-12-2024 End: 51-74-4997Vtvzevw encounter blencniyz97/15/2024 10:15 AM EDT Appointment [facility] [address] [facility] [address] [place] [phone] [facility] Bill [facility]Start: 03-12-2024 End: 86-66-7333Kwjdgty encounter procedureCHRISTUS Saint Michael Hospitalia [facility]sonStart: 03-05-2024 End: 95-31-3556Jqsnl metabolic 2000 panel - Serum or PlasmaBasic Metabolic Panel Lab Routine Essential hypertension Expected: 03/05/2024 (Approximate), Expires: 03/05/2025[facility] Work Phone: Comment on above:Expected: 03/05/2024 (Approximate), Expires: 03/05/2025Start: 03-05-2024 End: 61-33-2759QE Heart Perfusion W stress and W radionuclide IVNuclear Stress Test Cardiac Nuclear Medicine Routine ASHD (arteriosclerotic heart disease) Expected: 03/05/2024 (Approximate), Expires: 03/05/2026[facility] Service Area Work Phone: Comment on above:Expected: 03/05/2024 (Approximate), Expires: 03/05/2026Start: 09-53-6383HtaygtceoerimdlxNrbzirikeffzclPcvhcqdlsk [facility] ClevelandStart: 46-28-9708Cfhrdeo Directive DiscussionAdvance Directive DiscussionMansfield Hospitaltart: 15-56-0826LFP, Provider: Edinson Perry, Status: Pen, Time: 11:20 AMFUV, Provider: Edinson Perry, Status: Nahid, Time: 11:20 [facility]ife[facility] [address] DO Work Phone: Start: 13-57-2912BIRSA-19 Vaccine ( season) COVID-19 Vaccine ( season)[facility] CenterStbisbee: 88-53-7535Whkzxsibo vaccinationINFLUENZA (#1)[facility] Hospitaltart: 05-29-2023 Adult depression screening assessmentDEPRESSION SCREENINGMansfield Hospitaltart: 17-83-8496RNI, Provider: Edinson Perry, Status: Pen, Time: 10:20 AMFUV, Provider: Edinson Perry, Status: Pen, Time: 10:20 AMMPSt. [facility] [address] DO Work Phone: Start: 64-86-0013XmecbjidaAdena Regional Medical Center Start: 57-24-5465Hmioqgzj admissionOhio Valley Hospitaltart: 54-59-5167VthvrmhuiOhio Valley Hospitaltart: 38-34-5772XXWYA-19 VACCINE (6 - Pfizer series)COVID-19 VACCINE (6 - Pfizer series)[facility]: 32-08-9157Gjjqg depression screening assessmentDEPRESSION SCREENINGMansfield Hospitaltart: 04-20-5572EVTLBPX DIRECTIVE DISCUSSIONADVANCE DIRECTIVE DISCUSSION [facility]: 50-27-1010PERDWQJWAW ASSESSMENTDEPRESSION ASSESSMENT [facility]: 17-01-3253EIQCM-19 Vaccine (3 - Pfizer risk series)COVID- 19 Vaccine (3 - Pfizer risk series)[facility]: 70-71-8870Bkfiknqkt vaccinationINFLUENZA (#1)[facility]: 03-25-2022 COVID-19 VACCINE (5 - Booster for Pfizer series)COVID-19 VACCINE (5 - Booster for Pfizer series)[facility]: 50-30-5109OLZWROS DIRECTIVE DISCUSSION ADVANCE DIRECTIVE DISCUSSIONMansfield Hospitaltart: 12-48-6224RTVKWXBFDN ASSESSMENTDEPRESSION ASSESSMENTMansfield Hospitaltart: 16-48-1925Lwyflqpp Vaccine (3 of 3)Shingrix Vaccine (3 of 3)[facility]: 82-25-1013Udiefp Vaccines (2 of 2)Zoster Vaccines (2 of 2)[facility]: 79-29-0713UEBPIPGA VACCINE (2 of 2)SHINGRIX VACCINE (2 of 2)[facility] Start: 21-24-4000ZQG High Risk: (Elderly (60+) or Population) (1 - 1- dose 75+ series)RSV High Risk: (Elderly (60+) or Population) (1 - 1- dose 75+ series)[facility]: 64-84-2368IHK Vaccine (1 - 1-dose 75+ series)RSV Vaccine (1 - 1-dose 75+ series)[facility]: 15-06-7554VAxO/Tdap/Td Vaccines (1 - Tdap)DTaP/Tdap/Td Vaccines (1 - Tdap) [facility]: 71-05-7120Wtuym microalbumin profile DTaP,Tdap,Td Vaccine (1 - Tdap)[facility]: 21-33-6256HBMV DENSITYBONE DENSITYMansfield Hospitaltart: 38-33-1379TIFHCEZXMXRA: 65+ (1 - PCV) PNEUMOCOCCAL: 65+ (1 - PCV)[facility]: 10-44-5817Cnothjzmg for osteoporosisBone Density ScreeningMansfield Hospitaltart: 11-01-2007Medicare Annual Wellness VisitMedicare Annual Wellness VisitMansfield Hospitaltart: 02-75-1274ZRO patients and/or patients aged 60+ years (1 - 1-dose 60+ series)RSV patients and/or patients aged 60+ years (1 - 1-dose 60+ series)[facility]: 77-25-3956HRxV/Tdap/Td Vaccines (1 - Tdap)DTaP/Tdap/Td Vaccines (1 - Tdap)[facility] Start: 45-97-0441Ffouv microalbumin profileDTAP,TDAP,TD (1 - Tdap)[facility]: 02-29-0732Pzthaie ScreeningAnxiety ScreeningMansfield Hospitaltart: 60-28-4390Waulritadg ScreeningDepression ScreeningMansfield Hospitaltart: 06-95-4947Jlwsmjsp mellitus screeningDiabetes ScreeningUnMercer County Community Hospital: 48-83-4376Hgpnrnovew measurementCreatinine LevelUnMercer County Community Hospital: 89-95-8212Askva panelLipid PanelClermont County Hospital: 1942Medicare Annual Wellness VisitMedicare Annual Wellness Visit (AWV)[facility]: 1942 Potassium measurementPotassium LevelUnMercer County Community Hospital: 34-10-3473Kqqpsygvu for osteoporosisBone Density ScanAdams County Regional Medical CenterComprehensive metabolic 2000 panel - Serum or PlasmaAdena Regional Medical Center End: 58-84-8563Xk abdomen & pelvis w/contrast materialCT ABD/PEL W IVCON Radiology Routine Disorder of adrenal gland (HCC) 1 Occurrences starting 05/29/2022 until 06/28/2023[facility] Work Phone: Comment on above:1 Occurrences starting 05/29/2022 until 06/28/2023 End: 94-68-0347QQ CHEST W IVCONCT CHEST W IVCON Radiology Routine Lung nodules 1 Occurrences starting 05/29/2022 until 06/28/2023[facility] Work Phone: Comment on above:1 Occurrences starting 05/29/2022 until 3Patient EducationGrand Lake [facility]tr Work Phone: Patient referralGrand Lake [facility] Work Phone: End: 28-36-8580PJ Heart TransthoracicPRES[facility] Service Area Work Phone: Comment on above:Once for 1 Occurrences starting 03/17/2025 until 03/17/2025XR Knee - right 4 [facility]Park[facility] Immunizations Immunization DateImmunizationNotesCare BdaapqkhCiokbjyl29-54-6699ttcsvqzkb, high dose seasonal, preservative-freeAdena Regional Medical Center09-18-2024 influenza virus vaccine, unspecified formulationPaolo Casillas APRN.CNP Work Phone: [facility] HospitalEskgro39-30-2107yuthskzgs virus vaccine, unspecified formulationAdena Regional Medical Center10-09-2023influenza, high dose seasonal, preservative-freeBenalberta Hathaway Other noDental Fix RX Other [id number]-00 Pfizer (Pediatric)Nathan Hathaway Other [facility]11-18-2022Pfizer COVID-19 Vac Bivalent 30 MCG/0.3ML Intramuscular SuspensionNathan Hathaway Work Phone: [facility]10-14-2022influenza virus vaccine, split virus (incl. purified surface antigen)Nathan Hathaway Other noAQS [employer] Other 10534968-87-3797hedrhpjcm virus vaccine, unspecified formulationAdena Regional Medical Center04-02-2022COVID-19 mRNA, Comirnaty (Pfizer)DO Nathan Hathaway Work Phone: [facility]04-02-2022COVID-19 PfizerBenalberta Hathaway Other [facility]10-02-2021COVID-19 vaccine, age 12+ yr (PFIZER-BIONTECH - PURPLE TOP)Luis Mckenzie MD Work Phone: [facility] HospitalBpclpv99-38-9079jgpdok vaccine, liveBenalberta Hathaway Other [facility]09-21-2021influenza, high-dose, quadrivalent vaccine (FLUZONE HIGH DOSE QUADRIVALENT)Luis Mckenzie MD Work Phone: [facility] HospitalIiemyn69-41-4979dgiclbfsw virus vaccine, split virus (incl. purified surface antigen)Nathan Hathaway Other [employer] Other 09-108027-14-1384lfmjyakyp virus vaccine, unspecified formulationAdena Regional Medical Center07-24-2021zoster vaccine recombinant Luis Mckenzie MD Work Phone: [facility] HospitalShzgki99-70-7363rgamcq vaccine, liveBeesa Hathaway Other [facility]02-20-2021COVID-19 vaccine, age 12+ yr (PFIZER-BIONTECH - [facility])Luis Mckenzie MD Work Phone: [facility] HospitalCvhnut06-24-2378LHPZF-93 Vaccine Moderna - Documentation Purposes OnlyNathan Hathaway Other [facility]01-30-2021COVID-19 vaccine, age 12+ yr (PFIZER-BIONTECH - [facility])Luis Mckenzie MD Work Phone: [facility] HospitalCootyq55-43-1009dcnakxlzp virus vaccine, split virus (incl. purified surface antigen)Nathan Hathaway Other [employer] Other 10435604-74-7351crttcmxuq virus vaccine, unspecified formulationAdena [facility] Medical Center09-11-2019AS03 adjuvantArrival Radiology Work Phone: [facility] HospitalMvmozo44-14-7678Levemtdt trivalent influenza vaccine, adjuvanted, preservative Ras Mckenzie MD Work Phone: [facility] HospitalBewuvf18-26-5648TG97 adjuvantArrival Radiology Work Phone: [facility] HospitalLscdzm05-44-5719jamzfrdis virus vaccine, split virus (incl. purified surface antigen)Nathan Hathaway Other [employer] Other 10316215-66-8354yorhlfhxc virus vaccine, unspecified formulationA[facility]a [facility] Medical Center10-16-2018Seasonal trivalent influenza vaccine, adjuvanted, preservative Rsa Mckenzie MD Work Phone: [facility] HospitalRzvplc84-42-4926vbridfwpn virus vaccine, split virus (incl. purified surface antigen)Nathan Hathaway Other [employer] Other 10495041-40-5341mqnsyazhb virus vaccine, unspecified formulationFirelands Regional Medical Ddjxzd53-99-2384guvptwiey, high dose seasonal, preservative-freeLuis Mckenzie MD Work Phone: [facility] HospitalQgixuz07-40-5573uxxfdlafg virus vaccine, split virus (incl. purified surface antigen)Nathan Hathaway Other [employer] Other 09-751331-10-5884hsijuzqns virus vaccine, unspecified formulationAdena Regional Medical Center11-16-2015pneumococcal conjugate vaccine, 13 valentBenjuanmin Fransico Other [facility]10-20-2015influenza virus vaccine, split virus (incl. purified surface antigen)Nathan Hathaway Other [employer] Other 755644-82-5511fzpqpodsi virus vaccine, unspecified formulationAdena Regional Medical Center09-18-2014tetanus and diphtheria toxoids, adsorbed, preservative free, for adult use (5 Lf of tetanus toxoid and 2 Lf of diphtheria toxoid)Nathan Hathaway Other [facility]09-11-2013tetanus and diphtheria toxoids, adsorbed, preservative free, for adult use (5 Lf of tetanus toxoid and 2 Lf of diphtheria toxoid)Nathan Hathaway Other [facility]10-14-2010 pneumococcal polysaccharide vaccine, 23 valentBenjamin Fransico Other [facility] Payers DatePayer CategoryPayerPolicy [id number] supplemental policy (as second payer)[employer] [id number] Private Health InsurancePA[facility] A[facility] SUPP[facility] [id number] 2020-Present [phone] [address] [place] [address] Indemnity [id number] Health [id number] 2007MedicareMEDICARE MEDICARE A AND B [id number] 2007-Present [phone] [address] [address] [place] [address] [id number] 2007Medicare [id number] [id number] 2..840.0.4850[id number] 2.840.8.985250.52 1942 [id number] 2.840.1.364203.3.57[id number] 2.16.840.1.957322.3.57[id number] 2.16.840.1.563590.3.57[id number] 2.16.840.1.175123.3.57[id number] 2.16.840.1.954470.3.57[id number] 2.16.840.1.097559.3.57[id number] 2.16.840.1.301027.3.57[id number] 2.16.840.1.712975.3.57[id number] 2.16.840.1.243501.3.57[id number] 2..840.1.551926.3.579.[id number] 2.840.1.419604.3.57[id number] 2.840.1.996423.3.57[id number] 2.840.1.397361.3.57[id number] 2.840.1.111249.3.57[id number] 2.840.1.704762.3.57[id number] 2.840.1.928467.3.57[id number] 2.840.1.543[id number] Social History DateTypeDetailFacilityStart: 08-01-2021 End: 30-96-2677Iojouns smoking status NHISEx-smokerMemorial Health System Marietta Memorial Hospital End: 41-58-0955Ejoewcv of tobacco useCigarette SmokerMansfield Hospitaltart: 08-01-2021 End: 68-17-1357Ccqadwe use and exposureSmokeless tobacco non-userMansfield Hospitaltart: 00-54-2634Eek Assigned At BirthNot on fileMansfield Hospitaltart: 05-12-2022 End: 00-53-7051Yyhmeizu to SARS-CoV-2 (event)Not sureMemorial Health System Marietta Memorial Hospital End: 60-23-7329Gvdwonh of tobacco useCurrent smokerMansfield Hospitaltart: 12-04-2022 End: 19-76-4719Uir Assigned At BirthMansfield Hospitaltart: 12-04-2022 End: 16-38-7380Wq illicit drug useNo illicit drug useMemorial Health System Marietta Memorial HospitalComment on above:2 coffees in am and 1 coffee at hs;1997;Start: 12-44-0849Nhg Assigned At BirthFeDayton VA Medical Centertart: 06-04-2023 End: 59-20-8342Xhemqgz intakeEx-drinker (finding)[facility]: 13-17-8008Atjpp Depression Screening Zmuvqvbsag1Phtsjvrhb ClinicStart: 12-18-2023 End: 86-57-4507Adaswlj smoking status NHISNever smoked tobacco (finding) [facility]: 03-05-2024 End: 42-60-5241Rpcogwubb beverage intakeLifetime non-drinker (finding)[facility] Work Phone: Start: 09-11-2024 End: 51-58-2900KjjMicbnl (finding)[facility] Medical Equipment Procedure CodeEquipment CodeEquipment Original TextEquipment IdentifierDatesCL STENT WILLIE FRONTIER 2.5 X 18FDAStart: 97-99-1431WW STENT WILLIE FRONTIER 4.0 X 15 FDAStart: 59-72-0313AB STENT WILLIE FRONTIER 4.0 X 18FDAStart: 46-78-5003ES STENT WILLIE FRONTIER 2.5 X 18FDAStart: 23-59-0981EE STENT WILLIE FRONTIER 4.0 X 15FDA Start: 86-04-1738HE STENT WILLIE FRONTIER 4.0 X 18FDAStart: 97-60-5262ZF STENT WILLIE FRONTIER 2.5 X 18FDAStart: 04-15-7063ZI STENT WILLIE FRONTIER 4.0 X 15FDA Start: 74-25-4192WY STENT WILLIE FRONTIER 4.0 X 18FDAStart: 66-33-3134QP STENT WILLIE FRONTIER 2.5 X 18FDAStart: 89-77-7347MS STENT WILLIE FRONTIER 4.0 X 15FDA Start: 28-68-5790XJ STENT WILLIE FRONTIER 4.0 X 18FDAStart: 72-67-7478AY STENT WILLIE FRONTIER 2.5 X 18FDAStart: 29-73-6989PZ STENT WILLIE FRONTIER 4.0 X 15FDA Start: 52-66-3574YF STENT WILLIE FRONTIER 4.0 X 18FDAStart: 99-29-4256WO STENT WILLIE FRONTIER 2.5 X 18FDAStart: 52-10-2732AI STENT WILLIE FRONTIER 4.0 X 15FDA Start: 52-79-6914MB STENT WILLIE FRONTIER 4.0 X 18FDAStart: 88-56-4778AP STENT WILLIE FRONTIER 2.5 X 18FDAStart: 29-32-7528FW STENT WILLIE FRONTIER 4.0 X 15FDA Start: 33-50-6577WJ STENT WLILIE FRONTIER 4.0 X 18FDAStart: 03-01-0270GE STENT WILLIE FRONTIER 2.5 X 18FDAStart: 68-18-0821VB STENT WILLIE FRONTIER 4.0 X 15FDA Start: 07-26-2997SZ STENT WILLIE FRONTIER 4.0 X 18FDAStart: 02-60-7662RA STENT WILLIE FRONTIER 2.5 X 18FDAStart: 92-91-3858WO STENT WILLIE FRONTIER 4.0 X 15FDA Start: 94-03-4213GE STENT WILLIE FRONTIER 4.0 X 18FDAStart: 87-25-9727TN STENT WILLIE FRONTIER 2.5 X 18FDAStart: 56-66-9630VC STENT WILLIE FRONTIER 4.0 X 15FDA Start: 25-80-4748QT STENT WILLIE FRONTIER 4.0 X 18FDAStart: 32-75-9304JM STENT WILLIE FRONTIER 2.5 X 18FDAStart: 13-63-4199BU STENT WILLIE FRONTIER 4.0 X 15FDA Start: 81-47-2484KY STENT WILLIE FRONTIER 4.0 X 18FDAStart: 29-20-1616KW STENT WILLIE FRONTIER 2.5 X 18FDAStart: 95-13-6087NC STENT WILLIE FRONTIER 4.0 X 15FDA Start: 82-39-9244UV STENT WILLIE FRONTIER 4.0 X 18FDAStart: 01-24-6835LT STENT WILLIE FRONTIER 2.5 X 18FDAStart: 67-61-4527JT STENT WILLIE FRONTIER 4.0 X 15FDA Start: 93-29-7871YX STENT WILLIE FRONTIER 4.0 X 18FDAStart: 57-27-4687RQ STENT WILLIE FRONTIER 2.5 X 18FDAStart: 26-35-7042BF STENT WILLIE FRONTIER 4.0 X 15FDA Start: 23-64-1620SE STENT WILLIE FRONTIER 4.0 X 18FDAStart: 71-85-5721BT STENT WILLIE FRONTIER 2.5 X 18FDAStart: 13-38-5121EE STENT WILLIE FRONTIER 4.0 X 15FDA Start: 13-65-5892QX STENT WILLIE FRONTIER 4.0 X 18FDAStart: 03-05-0345UI STENT WILLIE FRONTIER 2.5 X 18FDAStart: 78-06-1236LU STENT WILLIE FRONTIER 4.0 X 15FDA Start: 65-88-0400IK STENT WILLIE FRONTIER 4.0 X 18FDAStart: 40-31-3214FI STENT WILLIE FRONTIER 2.5 X 18FDAStart: 99-29-3572HA STENT WILLIE FRONTIER 4.0 X 15FDA Start: 97-61-1027GX STENT WILLIE FRONTIER 4.0 X 18FDAStart: 02-34-8837VV STENT WILLIE FRONTIER 2.5 X 18FDAStart: 26-61-0037JL STENT WILLIE FRONTIER 4.0 X 15FDA Start: 11-36-6097NS STENT WILLIE FRONTIER 4.0 X 18FDAStart: 03-09-2023 Goals DatePatient GoalDesired Activity/State Functional Status ApojXvatvxjbubQxekwcLfezmzjl01-50-6935Vrxofzhlyb statusPatient at [facility] Work Phone: 1(130) [phone]Nzstouukdn statusPatient at Baseline [facility] Work Phone: Mental Status PrvzUiaciytixuCdaghcWlvsrkwe12-16-2150Fztrqnuxf functionCognitive Status [facility] Work Phone: 1(816) [phone]Wfqmlstan functionCognitive Status [facility] Work Phone: Clinical Notes 05-29-2022 to 08-19-2025 Note Date & FhczUtnqWzvobwsu66-02-1501 Radiology Diagnostic study [facility] [place] [address] Ultrasound Report Signed Patient: Lashaun Joaquin MR#: [id number] : 1940 Acct:[id number] Age/Sex: 84 / F ADM Date: 5 Loc: Room: Type: [facility] Attending Dr: Kaia Krishna ENTRY TECH-C Ordering Provider: Kaia Krishna APRN Date of [...] -0.39 cm throughout. There was some varicositiesand frozen food department manager sutures also identified which all measure [...] Menard M.D. 08/19/2025 12:30 PM Dictation Location: [place] [address] Tech: Darcy Kraft Transcribed By: LAURA 08/19/25 1230 Dictated By: Juan Jose Menard MD 08/19/25 1227 Signed By: 08/19/25 1230 [facility] Work Phone: 1(216) 127-847510-22-2025 Radiology Diagnostic study [facility] [place] [address] [place] [address] Ultrasound Report Signed Patient: Lashaun Joaquin MR#: [id number] : 1940 Acct:[id number] Age/Sex: 84 / F ADM Date: 5 Loc: Room: Type: [facility] Attending Dr: Kaia Krishna ENTRY TECH-C Ordering Provider: Kaia Krishna APRN Date of [...] Menard M.D. 08/19/2025 12:27 PM Dictation Location: [place] [address] Tech: Darcy Iyeredgardo Transcribed By: LAURA 08/19/251226 Dictated By: Juan Jose Menard MD 08/19/251225 Signed By: 08/19/251226 [facility] Work Phone: 1(614) 606-675709-12-2025 Telephone encounter Note* Telephone Encounter - Yolanda Cobian RN - 07/10/2025 2:11 PM EDT Refer to providers phone encounter for details of follow up/intervention Yolanda Cobian RN [facility]09-12-2025 Miscellaneous Notes* Telephone Encounter - [...] Her daughter Marianna with today's lab results. [phone] documented in this encounterMem[facility]25 Telephone encounter Note * Telephone Encounter - Yolanda Cobian RN - 07/10/2025 11:[address] Hathaway's office and spoke with Dayana. I informed her of Mrs Joaquin worsening anemia/renal function and elevated blood proteins (refer to note per Kg Petit PA-C from today). She appreciated the update and will discuss with Dr Hathaway. Yolanda Cobian RN [facility]09-12-2025 Miscellaneous Notes* Telephone Encounter - [...] Hathaway's office Please return the call at [phone] KERRY Menendez documented in this encounterMemorial [facility]09-[facility]-2025 Telephone encounter Note * Telephone [...] Hathaway's office Please return the call at [phone] KERRY Menendez [facility]09-12-2025 Telephone encounter Note* Telephone Encounter - Yolanda Cobian RN - 07/10/2025 9:17 AM EDT Labs still pending. Yolanda Cobian RN [facility]09-10-2025 Telephone encounter Note* Telephone Encounter - Kayla Arriaga - 07/08/2025 11:23 AM EDT Please call Her daughter Marianna with today's lab results. [phone] [facility]09-09-2025 NoteHNO ID: [id number] Author: PAOLO CSAILLAS APRN.[facility] Service: ? Author Type: Nurse Practitioner [...] has been under the care of Dr. Hathawya, who referred her back for evaluation due [...] Never Vaping Use Vap (more content not included)...[facility]09-09-2025 History of Present illness Narrative* Paolo Casillas APRN.[employer] PRINT INSPECTOR - 07/07/2025 5:54 PM EDT PATIENT NAME: [...] 06/23/2025. (Scanned) IgM elevated, M-protein 0.2, and [place]/Lambda ration 10.59. Will repeat labs today. Hemoglobin [...] shortness of breath and was hospitalized at [facility] treated for suspected pneumonia. Apparently it was later felt she had heart disease, and cardiac catheterization revealed severe coronary artery disease. She subsequently underwent stent placement at [facility]. April 2023 she developed severe shortness of breath and was hospitalized at [facility] 05/17/2023with CHF. She [...] and further evaluate as indicated. Paolo Casillas APRN.[employer] PRINT INSPECTOR CC: Dr. Orlando Cortez spent a total of 40 minutes on the date of the service which included preparing to see the patient, ujnj-hk-jszv patient care, completing clinical documentation, obtaining and/or reviewing separately obtained history, performing a medically appropriate examination, counseling and educating the pat ient/family/caregiver, ordering medications, tests, or procedures, independently interpreting results (not separately reported), and communicating results to the patient/family/caregiver. documented in this encounterMemorial [facility]09-08-2025 Telephone encounter Note * Telephone Encounter - Loree Rosado MA - 07/06/2025 9:31 AM EDT Patient coming Sunday07/08/25 for follow up labs. Please add lab orders. Thanks. Loree Rosado MA [facility]08-22-2025 Evaluation note* Diagnosis Onset Date Resolution [...] lower extremitiesacuteOctober 2024 10:24amSkin tendernessdeletedOctober 2024 10:24am [facility] Work Phone: 1([phone] 171-916508-22-2025 Evaluation note* Diagnosis Onset Date Resolution Status [...] with preserved ejection fraction (HFpEF)noneactiveOctober 2024 11:39am [facility] Work Phone: 1(740) [phone] Evaluation note* Diagnosis Onset Date Resolution Status [...] 9:23amMedicare annual wellness visit, subsequentnoneactiveAugust 2024 9:23am [facility] Work Phone: 1(431) 985-313607-22-2025 Evaluation note* Diagnosis Onset Date Resolution Status [...] with preserved ejection fraction (HFpEF)noneactiveSeptember 2024 3:32pm [facility] Work Phone: 1([phone] 244-560207-22-2025 Evaluation note* Diagnosis Onset Date Resolution Status Admit Date Acute bronchitis due to other specified organisms noneactiveJuly 2024 3:17pmAcute exacerbation of chronic obstructive airways diseasenoneactiveJuly 2024 3:17pmAnemiaacuteAugust 2024 9:23amASHD (arteriosclerotic heart disease)acuteAugust 2024 9:23amChronic bronchitisacuteAugust 2024 9:23amChronic kidney diseaseacuteAugust 2024 9:23amChronic venous insufficiencyacuteAugust 2024 9:23amEssential hypertensionacuteAugust 2024 9:23amGAD (generalized anxiety disorder)acute Noel 2024 9:23amGastroesophageal reflux disease with esophagitis without [...] with preserved ejection fraction (HFpEF)noneactiveSeptember 2024 3:32pm [facility] Work Phone: 1([phone] 160-296905-16-2025 Evaluation note* Diagnosis Onset Date Resolution Status [...] preserved ejection fraction (HFpEF) noneactiveMay 2024 11:21am [facility] Work Phone: 1([phone] 399-858904-15-2025 History of Present illness Narrative* Reyna Esparza MD - 02/25/2025 9:00 AM EDT Subjective Patient ID: Lashaun Joaquin is a 84 y.o. female who presents for Thyroid Nodule (Follow ultrasound [facility] 02/10/25) US shows an 11mm nodule that is unchanged and mult subcentimeter nodules. No family history on file. Active Ambulatory Problems Diagnosis Date Noted Dry eyes 04/28/2024 Epiretinal membrane (ERM) of left eye 04/28/2024 Blepharitis of upper and lower eyelids of both eyes 04/28/2024 Abnormal cardiovascular stress test 11/24/2024 Adrenal nodule ([facility] 11/24/2024 Anemia 11/24/2024 ASHD (arteriosclerotic heart disease) ([facility] [place] 10/17/2023 Atrophic vaginitis 11/24/2024 BMI 33.0-33.9,adult 03/05/2024 Cervical spondylosis with radiculopathy 11/24/2024 Chronic bronchitis ([facility] [place] 11/24/2024 Chronic heart failure with preserved ejection fraction (HFpEF) ([facility] [place] 11/24/2024 Chronic obstructive pulmonary disease with (acute) exacerbation ([facility] [place] 11/24/2024 Chronic venous insufficiency 11/24/2024 COVID 10/17/2023 Elevated serum immunoglobulin free light chain level 11/24/2024 Essential hypertension ([facility] [place] 10/17/2023 Flash pulmonary edema ([facility] [place] 11/24/2024 Former smoker 10/17/2023 OMAR (generalized anxiety disorder) ([facility] [place] 11/24/2024 Gastroesophageal reflux disease with esophagitis without hemorrhage 11/24/2024 Heart failure 11/24/2024 Palpitations 01/12/2025 Resolved Ambulatory Problems Diagnosis Date Noted No Resolved Ambulatory Problems Past Medical History: Diagnosis Date Arthritis Cataract Congestive heart failure (CHF) ([facility] [place]) Coronary artery disease ([facility] [place]) GERD (gastroesophageal reflux disease) Hypercholesteremia ([facility] [place]) Hypertension ([facility] [place]) Peripheral neuropathy Past Surgical History: Procedure Laterality [...] then annually if stable documented in this encounterDeaconess Incarnate Word Health [id number] Miscellaneous Notes* Telephone Encounter - Loree Rosado MA - 07/06/2025 9:31 AM EDT Patient coming Sunday07/08/25 for follow up labs. Please add lab orders. Thanks. Loree Rosado MA documented in this encounterMemorial [facility]03-27-2025 Evaluation note* Diagnosis Onset Date [...] 11:21amSubclinical hypothyroidismacuteMay 2024 11:21amThyroid noduleacuteMay 2024 11:21am [facility] Work Phone: 1([phone]) 958-903003-17-2025 Evaluation + Plan note* Assessment & Plan Note - CINTIA Gallego - 01/12/2025 3:48 PM EDTAssociated Problem(s): Cardiac and Vasculature January 2024 TTE LVEF greater than 55% Biatrial enlargement mild [facility] Work Phone: [phone] 213-347303-17-2025 Miscellaneous Notes* Assessment & Plan Note - [...] heart disease) March 09, 2023 Mid/proximal RCA PCI/Shirley 4x15mm & 4x18mm Proximal diagonal PCI/Shirley 2.5 x 18 mm LAD 10% Circumflex [...] hypertension Optimal in office documented in this [facility] Work Phone: [phone] 997-261003-17-2025 Evaluation + Plan note* Assessment & Plan Note - CINTIA Gallego - 01/12/2025 3:47 PM EDTAssociated Problem(s): Hyperlipidemia High intensity statin January 2024 HDL 42, cholesterol 158 [facility] Work Phone: [phone] 630-732803-17-2025 Evaluation + Plan note* Assessment & Plan Note - CINTIA Gallego - 01/12/2025 3:47 PM EDTAssociated Problem(s): ASHD (arteriosclerotic heart disease) March 09, 2023 Mid/proximal RCA PCI/Shirley 4x15mm & 4x18mm Proximal diagonal PCI/Shirley 2.5 x 18 mm LAD 10% Circumflex normal LVEF 65% February 2024 MPI ischemia, EF 88% Current daily activity at 4 METS without concerning symptoms [facility] Work Phone: [phone]) 215-161103-17-2025 Evaluation + Plan note* Assessment & Plan Note - CINTIA Gallego - 01/12/2025 3:46 PM EDTAssociated Problem(s): Palpitations Reports fairly daily episodes of hearing my heart thumping going into my ears No prior documented A-fib or arrhythmia. Was taken off of carvedilol January 2024 hospitalization due to bradycardia [facility] Work Phone: [phone]) 767-288303-17-2025 Evaluation + Plan note* Assessment & Plan Note - CINTIA Gallego - 01/12/2025 3:46 PM EDTAssociated Problem(s): Essential hypertension Optimal in office [facility] Work Phone: [phone] 294-656303-17-2025 History of Present illness Narrative* CINTIA Gallego [...] Echo (RODGERS, diastolic dysfunction) Holden Rosado MSN, FLUME WORKER-COLOR PRINT INSPECTOR, PMHNP-[facility] [place], [place] Please excuse any errors in grammar or translation related to this dictation. Voice recognition software was utilized to prepare this document. documented in this [facility] Work Phone: [phone]) 800-680103-17-2025 Instructions* Patient Instructions* CINTIA Gallego - 01/12/2025 [...] Echo (RODGERS, diastolic dysfunction) documented in this [facility] Work Phone: [phone] 734-590001-28-2025 History of Present illness Narrative* Reyna Esparza MD - 11/25/2024 2:00 PM EST Subjective Patient ID: Lashaun Joaquin is a 84 y.o. female who presents for Thyroid Nodule Pt reports she had a thyroid US after being found to be mildly hypothyroid. US shows an 11mm mixed thyroid nodule. FNA performed that was [place] 1. No family H/O thyroid CA. No [...] Cervical spondylosis with radiculopathy 11/24/2024 Chronic bronchitis ([facility] [place] 11/24/2024 Chronic heart failure with preserved ejection fraction (HFpEF) ([facility] [place] 11/24/2024 Chronic obstructive pulmonary disease with (acute) exacerbation ([facility] [place]) 11/24/2024 Chronic venous insufficiency 11/24/2024 COVID 10/17/2023 Elevated serum immunoglobulin free light chain level 11/24/2024 Essential hypertension ([facility] 10/17/2023 Flash pulmonary edema ([facility] [place]) 11/24/2024 Former smoker 10/17/2023 OMAR (generalized anxiety disorder) ([facility] [place] 11/24/2024 Gastroesophageal reflux disease with esophagitis without hemorrhage 11/24/2024 Heart failure ([facility] [place]) 11/24/2024 Resolved Ambulatory Problems Diagnosis Date Noted No Resolved Ambulatory Problems Past Medical History: Diagnosis Date Arthritis Cataract Congestive heart failure (CHF) ([facility] [place]) Coronary artery disease ([facility]) GERD (gastroesophageal reflux disease) Hypercholesteremia ([facility] [place]) Hypertension ([facility] [place]) Peripheral neuropathy Past Surgical History: Procedure Laterality [...] starting in late December documented in this encounterDeaconess Incarnate Word Health [id number] Chief complaint+Reason for visit Narrative* Chief Complaint [...] 10:20am Thyroid nodule December 16, 2024 10:20am [facility] Work Phone: 1([phone]) 240-488401-20-2025 Chief complaint+Reason for visit Narrative * Chief Complaint Admit Date e04.1 November 17, 2024 9 :45am Referral Order November 19, 2024 1 2:33pm 3 month f/u-HIGH RISK December 16 10:20am UA, frequency, burning December 29, 2024 1 :19pm injured right knee yesterday January 22, 2025 9:51am Reason for Visit Admit Date Thyroid nodule November 17, 2024 9 :45am ASHD (arteriosclerotic heart disease) Fe [facility] 2024 10:20am Chronic bronchitis December 16, 2024 [...] knee pain January 22, 2025 9:5 1am [facility] Work Phone: 1([phone] 151-429201-20-2025 Evaluation note* Diagnosis Onset Date Resolution Status Admit Date Thyroid nodule acuteJanuary 2024 9:45amASHD (arteriosclerotic heart disease)acuteFebruary 2024 10:20amChronic bronchitisacuteFebruary 2024 10:20amChronic heart failure with preserved ejection fraction (HFpEF)acuteFebruary 2024 10:20amChronic kidney diseaseacuteFebruary 2024 10:20amChronic venous insufficiencyacuteFebruary 2024 10:20amEssential hypertensionacuteFebruary 2024 10:20amSubclinical hypothyroidismacuteFebruary 2024 10:20am Thyroid noduleacuteFebruary 2024 10:20am [facility] Work Phone: [phone] Evaluation note* Diagnosis Onset Date Resolution Status Admit Date Thyroid nodule acuteJanuary 2024 9:45amASHD (arteriosclerotic heart disease)acuteFebruary 2024 10:20amChronic bronchitisacuteFebruary 2024 10:20amChronic heart failure with preserved ejection fraction (HFpEF)acuteFebruary 2024 10:20amChronic kidney diseaseacuteFebruary 2024 10:20amChronic venous insufficiencyacuteFebruary 2024 10:20amEssential hypertensionacuteFebruary 2024 10:20amSubclinical hypothyroidismacuteFebruary 2024 10:20am Thyroid noduleacuteFebruary 2024 10:20amChronic kidney diseaseacuteMarch 2024 9:51amNocturnal leg crampsacuteMarch 2024 9:51amRight knee pain acuteMarch 2024 9:51am [facility] Work Phone: 1([phone] 424-872612-11-2024 History of Present illness Narrative* Edinson Perry, [...] diastolic heart failure. She was hospitalized at [place] we were not involved in this. Her medications were changed, cluck carvedilol was discontinued and Entresto was initiated. She has supranormal left ventricular function with ejection fraction of 88% and normal perfusion scan February 2023. She did undergo primary PCI proximal RCA and diagonal branch in February 2023 for subsequentnon-ST elevation NC event with preserved LV function. She is [...] exam, discussion and plan. documented in this encounterAd[facility] Work Phone: 1(255) 552-295012-11-2024 Instructions* Patient Instructions* Racquel Olivera LPN - [...] Provided instructions on exercise. documented in this encounterAdams [facility] Work Phone: 1([phone]) 967-449911-14-2024 Evaluation note* Diagnosis Onset Date Resolution Status Admit Date Anemia acuteAugember 2023 10:16amASHD (arteriosclerotic heart disease)acute November 2023 10:16amChronic bronchitisacuteNovember 2023 10:16am Chronic heart failure with preserved ejection fraction (HFpEF)acuteSeptember 11, 2024 10:16amChronic venous insufficiencyacuteNovember 2023 10:16am Essential hypertensionacuteNov2023 10:16amGAD (generalized anxiety disorder)acuteSeptember 11, 2024 10:16amHypercholesterolemiaacuteNovember 2023 10:16amSubclinical hypothyroidismacuteNov2023 10:16am [facility] Work Phone: 1([phone]) 826-306111-14-2024 Evaluation note* Diagnosis Onset Date Resolution Status Admit Date Anemia acuteNovember 2023 10:16amASHD (arteriosclerotic heart disease)acute November 2023 10:16amChronic bronchitisacuteNovember 2023 10:16am Chronic heart failure with preserved ejection fraction (HFpEF)acuteNov2023 10:16amChronic venous insufficiencyacuteNovember 2023 10:16am Essential hypertensionacuteNovember 2023 10:16amGAD (generalized anxiety disorder)acuteNovember 2023 10:16amHypercholesterolemiaacuteNovember 2023 10:16amSubclinical hypothyroidismacuteNovember 2023 10:16amThyroid noduleacuteJanuary 2024 9:45am [facility] Work Phone: 1([phone] 452-719306-25-2024 Evaluation + Plan note* Assessment & Plan Note - CINTIA Gallego - 04/22/2024 11:58 AM EDTAssociated Problem(s): BMI 32.0-32.9,adult Reviewed the merits of healthy lifestyle choices on overall cardiovascular health. [facility] Work Phone: [phone] Evaluation + Plan note* Assessment & Plan Note - CINTIA Gallego - 04/22/2024 11:58 AM EDTAssociated Problem(s): Hyperlipidemia High intensity statin January 2024 HDL 42, cholesterol 158 [facility] Work Phone: [phone] 555-607606-25-2024 Evaluation + Plan note* Assessment & Plan Note - CINTIA Gallego - 04/22/2024 11:58 AM EDTAssociated Problem(s): Essential hypertension Optimal in the office [facility] Work Phone: [phone] 464-756006-25-2024 Evaluation + Plan note* Assessment & Plan Note - CINTIA Gallego - 04/22/2024 11:58 AM EDTAssociated Problem(s): ASHD (arteriosclerotic heart disease) March 09, 2023 Mid/proximal RCA PCI/Willie 4x15mm & 4x18mm Proximal diagonal PCI/Willie 2.5 x 18 mm LAD 10% Circumflex normal LVEF 65% February 2024 MPI ischemia, EF 88% Current daily activity at 4 METS without concerning symptoms [facility] Work Phone: [phone] 384-793906-25-2024 Miscellaneous Notes* Assessment & Plan Note - [...] RCA PCI/Willie 4x15mm & 4x18mm Proximal diagonal PCI/Shirley 2.5 x 18 mm LAD 10% Circumflex normal LVEF 65% February 2024 MPI ischemia, EF 88% Current daily activity at 4 METS without concerning symptoms documented in this [facility] Work Phone: [phone]) 387-204606-24-2024 History of Present illness Narrative* CINTIA Gallego [...] heart disease) March 09, 2023 Mid/proximal RCA PCI/Shirley 4x15mm & 4x18mm Proximal diagonal PCI/Shirley 2.5 x 18 mm LAD 10% Circumflex [...] Dr. Perry 6 months Holden Rosado MSN, FLUME WORKER-COLOR PRINT INSPECTOR, PMHNP-[facility] Please excuse any errors in grammar or translation related to this dictation. Voice recognition software was utilized to prepare this document. documented in this encounterAdams [facility] Work Phone: 1(529) 505-763306-24-2024 Instructions* Patient Instructions* CINTIA Gallego - 04/21/2024 [...] Dr. Perry 6 months documented in this encounterAdams [facility] Work Phone: [phone] 397-534905-09-2024 Evaluation + Plan note* Assessment & Plan Note - CINTIA Gallego - 03/06/2024 10:42 AM EDTAssociated Problem(s): BMI 32.0-32.9,adult Reviewed the merits of healthy lifestyle choices on overall cardiovascular health. [facility] Work Phone: 1([phone]) 237-604105-09-2024 Evaluation + Plan note* Assessment & Plan Note - CINTIA Gallego - 03/06/2024 10:42 AM EDTAssociated Problem(s): Hyperlipidemia High intensity statin January 2024 HDL 42, cholesterol 158 [facility] Work Phone: [phone] 295-735305-09-2024 Miscellaneous Notes* Assessment & Plan Note - [...] RCA PCI/Willie 4x15mm & 4x18mm Proximal diagonal PCI/Shirley 2.5 x 18 mm LAD 10% Circumflex normal LVEF 65% documented in this encounterAdams [facility] Work Phone: [phone] Evaluation + Plan note* Assessment & Plan Note - CINTIA Gallego - 03/06/2024 10:41 AM EDTAssociated Problem(s): Essential hypertension Optimal in office [facility] Work Phone: [phone] Evaluation + Plan note* Assessment & Plan Note - CINTIA Gallego - 03/06/2024 10:41 AM EDTAssociated Problem(s): ASHD (arteriosclerotic heart disease) March 09, 2023 Mid/proximal RCA PCI/Willie 4x15mm & 4x18mm Proximal diagonal PCI/Shirley 2.5 x 18 mm LAD 10% Circumflex normal LVEF 65% [facility] Work Phone: [phone] History of Present illness Narrative* CINTIA Gallego - 03/05/2024 11:30 AM EDT Chief Complaint I am just not feeling good Reason for Visit Patient presents to the office today for outpatient follow-up for hospital follow-up. Last evaluated in clinic by Dr. Perry September 2023. January 2024: Hospitalized at [facility] due to accelerated hypertension and bradycardia. [...] contact the office if new symptoms arise. ENTRY TECH after testing Holden Rosado MSN, THONY-DANIELA, PMHNP-BC [facility] Please excuse any errors in grammar or translation related to this dictation. Voice recognition software was utilized to prepare this document. documented in this [facility] Work Phone: 1(300) 655-906805-08-2024 Instructions* Patient Instructions* CINTIA Gallego - 03/05/2024 [...] contact the office if new symptoms arise. ENTRY TECH after testing documented in this [facility] Work Phone: 1(271) 682-793801-30-2024 Evaluation note* Encounter Date Diagnosis Assessment Notes Treatment Notes Treatment Clinical Notes Oct, Primary insomnia (ICD-10 - F51.0 1) [employer] [employer] Other 01-05-2024 Evaluation note* Encounter Date Diagnosis [...] in remission (ICD-10 - F17.211) Continue abstinence [employer] Other 12-05-2023 Evaluation note* Encounter Date Diagnosis [...] and feet daily for blisters and ulcerations. [facility] [facility] Other 11-29-2023 Evaluation note* Encounter Date Diagnosis Assessment Notes Treatment Notes Treatment Clinical Notes Aug, Chronic venous insufficiency (IC D-10 - I87.2) [facility] Other 11-24-2023 Evaluation note* Encounter Date Diagnosis Assessment Notes Treatment Notes Treatment Clinical Notes Aug, Subacute cough (ICD-10 - R05.2) Aug,yspnea on exertion (ICD-10 - R06.09) [facility] [facility] Other 11-20-2023 Evaluation note* Encounter Date Diagnosis Assessment Notes Treatment Notes Treatment Clinical Notes Aug, Chronic venous insufficiency (IC D-10 - I87.2) [employer] Other 11-16-2023 Evaluation note* Encounter Date Diagnosis Assessment Notes Treatment Notes Treatment Clinical Notes Aug, Chronic venous insufficiency (IC D-10 - I87.2) [facility] Other 11-14-2023 Evaluation note* Encounter Date Diagnosis Assessment Notes Treatment Notes Treatment Clinical Notes Aug, Acute bronchitis due to other sp ecified organisms (ICD-10 - J20.8) Instructed to use Robitussin or Mucinex for cough, saline or Flonase NS for congestion, Tylenol forpain and fever. Aug,hronic obstructive pulmonary disease with (acute) exacerbation (ICD-10 - J44.1)Begin using EDEL as needed to mobilize secretions. [facility] Other 10-19-2023 Evaluation note* Encounter Date Diagnosis Assessment Notes Treatment Notes Treatment Clinical Notes Jul, Aphthous ulcer (ICD-10 - K12.0) [facility] Other 09-20-2023 Evaluation note* Encounter Date Diagnosis Assessment Notes Treatment Notes Treatment Clinical Notes Jun, Dysuria (ICD-10 - R30.0) [facility] Other 09-19-2023 Evaluation note* Encounter Date Diagnosis Assessment Notes Treatment Notes Treatment Clinical Notes Jun, Dysuria (ICD-10 - R30.0) [facility] [facility] Other 08-28-2023 Evaluation note* Encounter Date Diagnosis Assessment Notes Treatment Notes Treatment Clinical Notes May, Chronic venous insufficiency (IC D-10 - I87.2) [facility] Other 08-24-2023 Evaluation note* Encounter Date Diagnosis Assessment Notes Treatment Notes Treatment Clinical Notes May, Primary insomnia (ICD-10 - F51.0 1) [facility] Other 08-21-2023 Evaluation note* Encounter Date Diagnosis Assessment Notes Treatment Notes Treatment Clinical Notes May, Diastolic hypertension (ICD-10 - I10) [facility] Other 08-18-2023 Evaluation note* Encounter Date Diagnosis Assessment Notes Treatment Notes Treatment Clinical Notes May, Primary hypertension (ICD-10 - I 10) [facility] [facility] Other 08-18-2023 Evaluation note* Encounter Date Diagnosis Assessment Notes Treatment Notes Treatment Clinical Notes May, Diastolic hypertension (ICD-10 - I10) [facility] Other 08-11-2023 Evaluation note* Encounter Date Diagnosis [...] and feet daily for blisters and ulcerations. [facility] Other 08-09-2023 Miscellaneous Notes* Telephone Encounter - [...] further discuss then. documented in this encounterCleveland [id number] History of Present illness Narrative* Luis Mckenzie [...] of breath and was hospitalized at [facility] and treated for suspected pneumonia. Apparently it was later felt she had heart disease, and cardiac catheterization revealed severe coronary artery disease. She dumont bsequently underwent stent placement at [facility]. Apparently her shortness [...] shortness of breath and was hospitalized at [facility] treated for suspected pneumonia. Apparently it was later felt she had heart disease, and cardiac catheterization revealed severe coronary artery disease. She subsequently underwent stent placement at [facility]. April 2023 she developed severe shortness of breath and was hospitalized at [facility] 05/17/2023with CHF. She [...] MD CC: Dr. Perry [facility]* Encounter Date Diagnosis [...] dependence, cigarettes, in remission (ICD-10 - F17.211) [employer] Other 07-21-2023 Discharge summary Author Lj Ryan [facility] May 18, 2023 11:44amNote Date/TimeJuly 2022 11:44[place] [address] Discharge Summary Signed Patient: Lashaun Joaquin MR#: [id number] : 1940 Acct:[id number] Age/Sex: 82 / F Adm Date: 3 Loc: Room: [address] [place] [address]: Lj Ryan DO Copies to: [...] Sodium 142, Potassium 4.0, Chloride 103, Carbon Njnkxue16.5, Anion Gap 12.5, BUN 21, Creatinine 1.37 H, Est GFR (CKD-EPI) 39.034, Glucose 94, Calcium 8.9,Phosphorus 5.3, Magnesium 2.1 05/18/23 05:58: Corrected WBC 6.0, Uncorrected WBC Count 6.0, RBC 3.21 L, Hgb 9.7 L, Hct 28.2 L, MCV 87.7, MCH 30.2, MCHC 34.4, RDW 14.1, Plt Count 314, MPV 7.8, Neut % (Auto) 73.6, Lymph % (Auto) 15.1, [place] % (Auto) 8.7, Eos % (Auto) 1.9, Baso % (Auto) 0.7, Nucleat RBC Rel Count 0.1, Neut # (Auto)4.4, Lymph # (Auto) 0.9 L, [place] # (Auto) 0.5, Eos # (Auto) 0.1, [...] signed by Lj Ryan DO> 05/18/23 1144 [facility] Work Phone: 1(815) 359-966807-20-2023 History and physical note Author Lj Ryan [facility] May 17, 2023 3:56pmNote Date/TimeJuly 2022 3:49pm[place] [address] Hospitalist H&P Signed Patient: Lashaun Joaquin MR#: [id number] : 1940 Acct:[id number] Age/Sex: 82 / F Adm Date: 3 Loc: 3T Room: [address] [place] [address] Type: ADM INOo Attending Dr: Lj Ryan [...] negative unless noted below or in HPI [facility] Medical History (Updated 05/17/23 @ [...] % (Auto) 9.3 % (.) 05/17/23 10:25 [place]ut[place] % (Auto) 5.5 % (.) 05/17/23 10:25 Eos % (Auto) 0.5 % (.) 05/17/23 10:25 Baso % (Auto) 0.5 % (.) 05/17/23 10:25 Nucleat RBC Rel Count 0.0 /100 WBC (0-0.5) 05/17/23 10:25 Neut # (Auto) 8.6 x10E3/uL (1.8-7.7) H 05/17/23 10:25 Lymph # (Auto) 1.0 x10E3/uL (1.00-4.8) 05/17/23 10:25 [place] # (Auto) 0.6 x10E3/uL (0.0-0.8) 05/17/23 10:25 [...] <Electronically signed by Lj Ryan DO> 05/17/23 2849 [facility] Work Phone: 1(177) 183-512507-19-2023 Evaluation note* Encounter Date Diagnosis Assessment Notes [...] index [BMI] 33.0-33.9, adult (ICD-10 - Z68.33) [facility] Other 07-12-2023 Evaluation note* Encounter Date Diagnosis [...] dependence, cigarettes, in remission (ICD-10 - F17.211) [employer] Other 06-29-2023 Evaluation note* Encounter Date Diagnosis Assessment Notes Treatment Notes Treatment Clinical Notes Mar, Paronychia of finger of right gagnon nd (ICD-10 - L03.011) [facility] [facility] Other 06-29-2023 Evaluation note* Encounter Date Diagnosis [...] and healthy diet. Mar,aresthesias (ICD-10 - R20.2) [facility] Other 06-21-2023 Evaluation note* Encounter Date Diagnosis [...] post PCI/stent placement. Continue for 12 months [employer] Other 06-21-2023 Evaluation note* Encounter Date Diagnosis Assessment Notes Treatment Notes Treatment Clinical Notes Mar, Chronic bronchitis, simple (ICD- 10 - J41.0) [facility] Other 05-30-2023 Evaluation note* Encounter Date Diagnosis Assessment Notes Treatment Notes Treatment Clinical Notes February, Paresthesias (ICD-10 - R20.2) [facility] Other 05-18-2023 Evaluation note* Encounter Date Diagnosis [...] Titrate Gabapentin and monitor for fluid retention [facility] Other 05-08-2023 Evaluation note* Encounter Date Diagnosis Assessment Notes Treatment Notes Treatment Clinical Notes February, Primary hypertension (ICD-10 - I 10) February,hronic venous insufficiency (ICD-10 - I87.2) [facility] Other 04-19-2023 Evaluation note* Encounter Date Diagnosis [...] pain, change in appetite or bowel habits [facility] [facility] Other 04-16-2023 Evaluation note* Encounter Date Diagnosis Assessment Notes Treatment Notes Treatment Clinical Notes Jan, Essential hypertension (ICD-10 - I10) ECHOCARDIOGRAM - 01/2023 1. LVEF is 65%. 2. Normal right ventricular size and systolic function, elevated RVSP 3. Grade 2 diastolic dysfunction. 4. Mild to moderate mitral regurgitation. Jan,ulmonary hypertension (ICD-10 - I27.20) Jan,cute on chronic diastolic heart failure (ICD-10 - I50.33) [facility] Other 04-07-2023 Evaluation note* Encounter Date Diagnosis [...] E78.01)Diet and exercise with continued statin therapy. [facility] [facility] Other 02-23-2023 Evaluation note* Encounter Date Diagnosis Assessment Notes Treatment Notes Treatment Clinical Notes Nov, Primary insomnia (ICD-10 - F51.0 1) [facility] [facility] Other 02-16-2023 Evaluation note* Encounter Date Diagnosis [...] mammogram for breast cancer (ICD-10 - Z12.31) [facility] Other 02-06-2023 History of Present illness Narrative* [...] PCP. Luis Mckenzie MD documented in this encounter[facility] Evaluation note* Encounter Date Diagnosis [...] or drinking prior to bedtime. Weight loss. [employer] Other 11-01-2022 Miscellaneous Notes* Telephone Encounter - [...] in November MARBIN Freeman documented in this encounterMem[facility]10-31-2022 History of Present illness Narrative* [...] 28, 2022 12:49 PM documented in this encounterMem[facility]08-01-2022 History of Present illness Narrative* [...] PCP. Luis Mckenzie [facility] Narrative - Reported * LASHAUN JOAQUIN is being seen for a consultation for abnormal test(s) results. * 82-year-old female seen in cardiology consultation at the request of Dr. Natalio hathaway for recent episode of respiratory distress, what sounds like congestive heart failure associated with accelerated hypertension, was admitted to [place] briefly, diuresed approximately 14 pounds with diuretics. [...] and proceed with heart cath this Sunday [facility] DO Work Phone: Evaluation note* Diagnosis Abnormal SPEP- Primary Other nonspecific findings on examination of blood Neuropathy - (NOS) 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 Lung nodules Other nonspecific abnormal finding of lung field documented in this encounter [facility] HospitalEvaludel[facility]* Diagnosis Abnormal SPEP- Primary Other nonspecific findings on examination of blood Neuropathy - (NOS) Lung nodules Other nonspecific abnormal finding of lung field documented in this encounter [facility] HospitalEvaludelaware [facility] ill noteNo InformationNort Cherry Other Evaluation noteNo assessment information available [facility] Work Phone: Evaluation note* Diagnosis Onset Date Resolution Status Flash pulmonary edema acuteHeart failureacuteHypertensionacuteHypertensive emergencyacuteHypoxiaacute [facility] Work Phone: Evaluation note* Diagnosis Abnormal SPEP- Primary Other nonspecific findings on examination of blood Anemia, unspecified type Neuropathy - (NOS) Heart disease Heart disease, unspecified documented in this encounter [facility] HospitalEvaludel[facility]* Diagnosis Onset Date Resolution Status ASHD (arteriosclerotic heart disease) acuteChronic diastolic heart failureacuteChronic venous insufficiencyacute Elevated cholesterolacuteEssential hypertensionacuteGAD (generalized anxiety disorder)acuteGastroesophageal reflux disease with esophagitis without hemorrhageacuteMGUS (monoclonal gammopathy of unknown significance)[facility] Work Phone: Evaluation note* Diagnosis Onset Date Resolution Status ASHD (arteriosclerotic heart disease) acuteChronic diastolic heart failureacuteChronic venous insufficiencyacute Elevated cholesterolacuteEssential hypertensionacuteGAD (generalized anxiety disorder)acuteGastroesophageal reflux disease with esophagitis without hemorrhageacuteMGUS (monoclonal gammopathy of unknown significance)acuteMedicare annual wellness visit, subsequentnoneactiveEustachian tube dysfunctionacute Right otitis mediaacute [facility] Work Phone: Evaluation note* Diagnosis ASHD (arteriosclerotic heart disease)- Primary Coronary atherosclerosis of unspecified type of vessel, [place] or graft Essential hypertension Unspecified essential hypertension Mixed hyperlipidemia BMI 32.0-32.9,adult documented in this encounter [facility] Work Phone: Evaluation note* Diagnosis Onset Date Resolution Status ASHD (arteriosclerotic heart disease) acuteChronic diastolic heart failureacuteChronic venous insufficiencyacute Elevated cholesterolacuteEssential hypertensionacuteGAD (generalized anxiety disorder)acuteGastroesophageal reflux disease with esophagitis without hemorrhageacuteMGUS (monoclonal gammopathy of unknown significance)acuteMedicare annual wellness visit, subsequentnoneactiveEustachian tube dysfunctionacute Right otitis mediaacuteASHD (arteriosclerotic heart disease)acuteChronic diastolic heart failureacuteChronic venous insufficiencyacuteEssential hypertensionacuteGAD (generalized anxiety disorder)acuteSubclinical hypothyroidismacute [facility] Work Phone: Evaluation note* Diagnosis ASHD (arteriosclerotic heart disease) Coronary atherosclerosis of unspecified type of vessel, [place] or graft documented in this encounter [facility] Work Phone: Evaluation note* Diagnosis Onset Date Resolution Status Anemia acuteASHD (arteriosclerotic heart disease)acuteChronic diastolic heart failure acuteChronic venous insufficiencyacuteEssential hypertensionacuteGAD (generalized anxiety disorder)acuteSubclinical hypothyroidismacute [facility] Work Phone: Evaluation note* Diagnosis 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 Lung nodules Other nonspecific abnormal finding of lung field documented in this encounter [facility] Hospital[facility]* Diagnosis Onset Date Resolution Status Admit Date Anemia acuteNov2023 10:16amASHD (arteriosclerotic heart disease)acute September 11, 2024 10:16amChronic bronchitisacuteNovember 2023 10:16am Chronic heart failure with preserved ejection fraction (HFpEF)acuteNov2023 10:16amChronic venous insufficiencyacuteNov2023 10:16am Essential hypertensionacuteNovember 2023 10:16amGAD (generalized anxiety disorder)acuteNovember 2023 10:16amHypercholesterolemiaacuteNovember 2023 10:16amSubclinical hypothyroidismacuteNovember 2023 10:16am [facility] Work Phone: Evaluation note* Diagnosis Essential hypertension- Primary Unspecified essential hypertension ASHD (arteriosclerotic heart disease) Coronary atherosclerosis of unspecified type of vessel, [place] or graft Mixed hyperlipidemia BMI 32.0-32.9,adult documented in this encounter [facility] Work Phone: Evaluation note* Diagnosis ASHD (arteriosclerotic heart disease)- Primary Coronary atherosclerosis of unspecified type of vessel, [place] or graft Essential hypertension Unspecified essential hypertension Mixed hyperlipidemia BMI 32.0-32.9,adult Essential hypertension- Primary Unspecified essential hypertension ASHD (arteriosclerotic heart disease) Coronary atherosclerosis of unspecified type of vessel, [place] or graft Mixed hyperlipidemia BMI 32.0-32.9,adult ASHD (arteriosclerotic heart disease) Coronary atherosclerosis of unspecified type of vessel, [place] or graft Essential hypertension Unspecified essential hypertension BMI 33.0-33.9,adult Former smoker Personal history of tobacco use, presenting hazards to health S/P PTCA (percutaneous transluminal coronary angioplasty) Postsurgical percutaneous transluminal coronary angioplasty status Mixed hyperlipidemia Coronary arteriosclerosis after percutaneous transluminal coronary angioplasty (PTCA) documented in this encounter [facility] Work Phone: Evaluation note* Diagnosis Thyroid nodule (CMS/HCC)- Primary Nontoxic uninodular goiter [facility] Diagnosis ASHD (arteriosclerotic heart disease)- Primary Coronary atherosclerosis of unspecified type of vessel, [place] or graft Essential hypertension Unspecified essential hypertension Mixed hyperlipidemia BMI 32.0-32.9,adult Essential hypertension- Primary Unspecified essential hypertension ASHD (arteriosclerotic heart disease) Coronary atherosclerosis of unspecified type of vessel, [place] or graft Mixed hyperlipidemia BMI 32.0-32.9,adult BMI 33.0-33.9,adult- Primary Essential hypertension Unspecified essential hypertension Palpitations ASHD (arteriosclerotic heart disease) Coronary atherosclerosis of unspecified type of vessel, [place] or graft Mixed hyperlipidemia documented in this encounter [facility] Work Phone: Evaluation note* Diagnosis Nontoxic multinodular goiter (CMS/HCC)- Primary Nontoxic multinodular goiter documented [facility]* Diagnosis ASHD (arteriosclerotic heart disease)- Primary Coronary atherosclerosis of unspecified type of vessel, [place] or graft Essential hypertension Unspecified essential hypertension Mixed hyperlipidemia BMI 32.0-32.9,adult Essential hypertension- Primary Unspecified essential hypertension ASHD (arteriosclerotic heart disease) Coronary atherosclerosis of unspecified type of vessel, [place] or graft Mixed hyperlipidemia BMI 32.0-32.9,adult BMI 33.0-33.9,adult- Primary Essential hypertension Unspecified essential hypertension Palpitations ASHD (arteriosclerotic heart disease) Coronary atherosclerosis of unspecified type of vessel, [place] or graft Mixed hyperlipidemia Essential hypertension Unspecified essential hypertension Palpitations documented in this encounter [facility] Work Phone: Evaluation note* Diagnosis Abnormal SPEP- Primary Other nonspecific findings on examination of blood documented in this encounter [facility] HospitalEvaludelaware [facility]* Diagnosis Abnormal SPEP- Primary Other nonspecific findings on examination of blood Primary hypertension Unspecified essential hypertension Hyperlipidemia, unspecified hyperlipidemia type Heart disease Heart disease, unspecified Edema, unspecified type 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 Anemia in other chronic diseases classified elsewhere documented in this encounter [facility] general Narrative - Reported* Type Description [...] History MalaiseMedical HistoryExogenous obesityMedical HistoryAnemiaSurgical History catarac [id number] [id number] Historysee surgical history [employer] Other History general Narrative - Reported* Type [...] History MalaiseMedical HistoryExogenous obesityMedical HistoryAnemiaSurgical History catarac [id number] [id number] HistoryPCI/stent RCA and diagonal br02/2023Hospitalization Historysee surgical history [employer] [facility] Other Hospital Discharge instructions Additional Instructions Please [...] to control your blood pressure in the hospital.[facility] Work Phone: Hospital Discharge instructionsAmbulatory Orders* Referral to ENT Time Frame: 11/19/24, Location: None [facility] Work Phone: Reason for referral (narrative)* Consultation (Routine) - AuthorizedSpecialtyDiagnoses / ProceduresReferred By Contact Referred To ContactCardiology Diagnoses ASHD (arteriosclerotic heart disease) Procedures Follow Up In Cardiology Holden Rosado APRN-CNP [address] [facility] 2, [address] [address] Referral IDStatSanjayStart DateExpiration DateVisits RequestedVisits [id number]/[id number] * Cardiac Stress Testing (Routine) - Pending ReviewSpecialtyDiagnoses / ProceduresReferred By ContactReferred To ContactRadiology Diagnoses ASHD (arteriosclerotic heart disease) Procedures Nuclear Stress Test CHG MYOCARDIAL SPECT MULTIPLE STUDIES Holden Rosado APRN-CNP [address] [facility], [address] [place] [address] Referral IDStatusReasonStart DateExpiration DateVisits RequestedVisits [id number] Review [facility] Work Phone: Reason for referral (narrative)* Consultation (Routine) - AuthorizedSpecialtyDiagnoses / ProceduresReferred By Contact Referred To ContactCardiology Diagnoses ASHD (arteriosclerotic heart disease) Procedures Follow Up In Cardiology Holden Rosado APRN-CNP [address] [facility] [address], [address] [address] Referral IDStatusReasonStart DateExpiration DateVisits RequestedVisits [id number]/24/[id number]/ [facility] Work Phone: Reason for referral (narrative)No reason for referral information availableSumma Health Work Phone: Reason for visit Narrative* CV Imaging (Routine) - AuthorizedSpecialtyDiagnoses / ProceduresReferred By ContactReferred To ContactCardiology Diagnoses Essential hypertension Palpitations Procedures Transthoracic Echo Complete MO ECHO TTHRC R-T 2D W/WOM-MODE COMPL SPEC&COLR D Holden Rosado APRN-CNP [address] [facility] [address], [address] [address] Phone: tel: fax: Referral IDStatusReasonStart DateExpiration DateVisits RequestedVisits [id number] Perform Procedure [facility] Work Phone: Advance Directives TypeDate RecordedPatient RepresentativeExplanationAdvance [...] COMPUTED TOMOGRAPHY THORAX W/CONTRAST Luis Mckenzie MD [address] [place] [address] [address] [place] [address] Ct Imaging Referral IDStatusReasonStart DateExpiration DateVisits RequestedVisits [id number] Auto-Generated Referral [id number] / ProceduresReferred By ContactReferred To ContactCT IMAGING Diagnoses Disorder of adrenal gland (HCC) Procedures CT ABD/PEL W IVCON CT ABD & PELVIS W/CONTRAST Luis Mckenzie MD [address] [place] [address] [place] [address] Ct Imaging Referral IDStatusReasonStart DateExpiration DateVisits RequestedVisits [id number] Auto-Generated Referral [id number] / ProceduresReferred By ContactReferred To ContactRadiology Diagnoses ASHD (arteriosclerotic heart disease) Procedures Nuclear Stress Test CHG MYOCARDIAL SPECT MULTIPLE STUDIES Holden Rosado, [employer] INSPECTOR [address] [facility] 2, [address] [address] Referral IDStatusReasonStbisbee DateExpiration DateVisits RequestedVisits [id number] / Procedures Referred By ContactReferred To ContactCT IMAGING Diagnoses Lung nodules Procedures CT CHEST W IVCON DIAGNOSTIC COMPUTED TOMOGRAPHY THORAX W/CONTRAST Luis Mckenzie MD [address] [place] [address] [place] [address] [place] [address] Referral IDStatusReasonStart DateExpiration DateVisits RequestedVisits [id number] Auto-Generated Referral [id number] / ProceduresReferred By ContactReferred To ContactCT IMAGING Diagnoses Disorder of adrenal gland (HCC) Procedures CT ABD/PEL W IVCON CT ABD & PELVIS W/CONTRAST Luis Mckenzie MD [address] [place] [address] [place] [address] [place] [address] Referral IDStatusReasonStart DateExpiration DateVisits RequestedVisits [id number] Auto-Generated Referral Family History Unknown Family Member [...] ear ache Amb Documentation [facility] FOLLOW UP [id number] for VisitASHD (arteriosclerotic heart disease) Chronic diastolic [...] 23am Screening mammogram for breast cancer [facility] 2024 9:23am Subclinical hypothyroidism June 19, [...] 23am Screening mammogram for breast cancer [facility] 2024 9:23am Subclinical hypothyroidism June 19, [...] 23am Screening mammogram for breast cancer [facility] 2024 9:23am Subclinical hypothyroidism June 19, [...] 17, 2025 9 :42am I87.2 G25.81 R60.0 [id number] I83.893 Octobe r 2024 7:55am Reason for Visit Admit Date Anemia June 19, 2025 9: 23am ASHD (arteriosclerotic heart disease) [facility] 2024 9:23am Chronic bronchitis June 19, 2025 [...] 9: 23am Screening mammogram for breast cancer [facility] 2024 9:23am Subclinical hypothyroidism June 19, 2025 [...] 17, 2025 9 :42am I87.2 G25.81 R60.0 [id number] I83.893 Octobe r 2024 7:55am [facility] hosp [...] 23am Screening mammogram for breast cancer [facility] 2024 9:23am Subclinical hypothyroidism June 19, [...] or prosecute any alcohol or drug abuse patient.[facility] HospitalIn the event this information is protected by the Federal Confidentiality of Alcohol and Drug Abuse Patient Records regulations: The Federal rules restrict any use of the information to criminally investigate or prosecute any alcohol or drug abuse patient.[facility] HospitalIn the event this information is protected by the Federal Confidentiality of Alcohol and Drug Abuse Patient Records regulations: The Federal rules restrict any use of the information to criminally investigate or prosecute any alcohol or drug abuse patient.[facility] HospitalIn the event this information is protected by the Federal Confidentiality of Alcohol and Drug Abuse Patient Records regulations: The Federal rules restrict any use of the information to criminally investigate or prosecute any alcohol or drug abuse patient.[facility] HospitalIn the event this information is protected by the Federal Confidentiality of Alcohol and Drug Abuse Patient Records regulations: The Federal rules restrict any use of the information to criminally investigate or prosecute any alcohol or drug abuse patient.[facility] HospitalIn the event this information is protected by the Federal Confidentiality of Alcohol and Drug Abuse Patient Records regulations: The Federal rules restrict any use of the information to criminally investigate or prosecute any alcohol or drug abuse patient.[facility] HospitalIn the event this information is protected by the Federal Confidentiality of Alcohol and Drug Abuse Patient Records regulations: The Federal rules restrict any use of the information to criminally investigate or prosecute any alcohol or drug abuse patient.[facility] HospitalIn the event this information is protected by the Federal Confidentiality of Alcohol and Drug Abuse Patient Records regulations: The Federal rules restrict any use of the information to criminally investigate or prosecute any alcohol or drug abuse patient.[facility] HospitalIn the event this information is protected by the Federal Confidentiality of Alcohol and Drug Abuse Patient Records regulations: The Federal rules restrict any use of the information to criminally investigate or prosecute any alcohol or drug abuse patient.[facility] HospitalIn the event this information is protected by the Federal Confidentiality of Alcohol and Drug Abuse Patient Records regulations: The Federal rules restrict any use of the information to criminally investigate or prosecute any alcohol or drug abuse patient.[facility] HospitalIn the event this information is protected by the Federal Confidentiality of Alcohol and Drug Abuse Patient Records regulations: The Federal rules restrict any use of the information to criminally investigate or prosecute any alcohol or drug abuse patient.[facility] Reason for Visit (unrecogniz ed section and content) ReasonCommentsLab OrdersReasonCommentsabnormal spepReasonCommentsResultsReason CommentsAbnormal SPEPReasonCommentsFollow-upbradycardiaSpecialtyDiagnoses / ProceduresReferred By ContactReferred To ContactRadiology Diagnoses ASHD (arteriosclerotic heart disease) Procedures Nuclear Stress Test CHG MYOCARDIAL SPECT MULTIPLE STUDIES Holden Rosado, FLUME WORKER-[employer] PRINT INSPECTOR [address]03 [facility] 2, [facility] [address] [place] [address] Referral IDStatusReasonStart DateExpiration DateVisits RequestedVisits [id number] [id number] CT SpecialtyDiagnoses / ProceduresReferred By ContactReferred To ContactCT IMAGING Diagnoses Lung nodules Procedures CT CHEST W IVCON DIAGNOSTIC COMPUTED TOMOGRAPHY THORAX W/CONTRAST Luis Mckenzie MD [address] [place] [address] [place] [address] [address] [place] [address] Referral IDStatusReasonStart DateExpiration DateVisits RequestedVisits [id number] Auto-Generated Referral /[id number]-jpCcrs resultxSpecialtyDiagnoses / ProceduresReferred By ContactReferred To ContactCardiology Diagnoses ASHD (arteriosclerotic heart disease) Procedures Follow Up In Cardiology Edinson Perry, DO 703 [facility] 2, [address] [address] Holden Rosado, FLUME WORKERCOLOR PRINT INSPECTOR 703 [facility] 2, [address] [address] Referral IDStatusReasonStart DateExpiration DateVisits RequestedVisits [id number]/20/202312/[id number]-ck9 month SpecialtyDiagnoses / ProceduresReferred By ContactReferred To ContactCardiology Diagnoses ASHD (arteriosclerotic heart disease) Procedures Follow Up In Cardiology Holden Rosado, FLUME WORKER[employer] PRINT INSPECTOR 703 [facility] 2, [address] [address] Phone: tel: fax: Referral IDStatusReasonStart DateExpiration DateVisits RequestedVisits [id number]/24/20246/[id number] DateCommentsMed [id number] NoduleSpecialtyDiagnoses / Procedures Referred By ContactReferred To ContactOtolaryngology Diagnoses Nontoxic single thyroid nodule (CMS/HCC) Procedures [place] UNLISTED EVALUATION AND MANAGEMENT SERVICE Nathan Hathaway MD [address] [place] [address] Phone: tel: Reyna Esparza MD [address] [facility] [address] [place] [address] Phone: tel: fax: Referral IDStatusReasonStart DateExpiration DateVisits RequestedVisits [id number]/22/20257/[id number]-yb3 months Follow up for Coronary Artery DiseaseSpecialtyDiagnoses / ProceduresReferred By ContactReferred To ContactCardiology Diagnoses Essential hypertension Procedures Follow Up In Cardiology Edinson Perry, DO [address] [facility] 2, [address] [place] [address] Phone: tel: fax: Alonzo Holden K, FLUME WORKER-[employer] PRINT INSPECTOR [address] [place] [address] Phone: tel: fax: Referral IDStatusReasonStart DateExpiration DateVisits RequestedVisits [id number]/11/202412/[id number] Nodule Follow ultrasound [facility] 02/10/25ReasonCommentsLab OrdersntReasonCommentsOrders Patient UpdateReasonCommentsAbnormal SPEPFOLLOW UP Care Teams (unrecognized sec tion and content) Team Status: Active Member Role Status Hortencia Hathaway DO Primary Care Provider Active Team Status: Inactive Member Role Status Hortencia Hathaway DO Primary Care Provide r, Attending Provider Active Start: November 17, 2024 End: November 17, 2024 Team Status: Active Member Role Status Hotrencia Hathaway DO Primary Care Provide r, Attending [...] ProviderActiveTeam MemberRelationshipSpecialtyStart DateEnd Date FransicoNathan, PCP - [facility]01/31/12Team MemberRelationshipSpecialtyStart Date End Date FransicoNathan, [facility] - [facility]01/31/12 Team Status: Active Member Role Status Dates Nathan Hathaway DO Primary Care Provide r, Attending Provider Active Start: February 02, 2024 Team Status: Inactive Member Role Status Dates Nathan Hathaway DO Primary Care Provider Active Start: February 13, 2024 End: February 13, 2024Deja Pope APRN ENTRY TECH-CAttending ProviderActive Start: February 13, 2024 End: February 13, 2024Team MemberRelationshipSpecialtyStart DateEnd Date FransicoNathan Chinyere, [facility] - [facility]10/03/23 Team Status: Active Member Role Status Dates Nathan Hathaway DO Primary Care Provide r, Attending Provider Active Start: February 18, 2024 Team Status: Active Member Role Status Dates Nathan Hathaway DO Primary Care Provide r, Attending Provider Active Start: February 19, 2024 Team Status: Active Member Role Status Dates Nathan Hathwaay DO Primary Care Provide r, Attending Provider [...] Date Nathan Hathaway DO PCP - GeneralInternal Midfxgvq82/6/23am MemberRelationshipSpecialtyStart Date End Date Nathan Hathaway DO PCP - GeneralInternal Fqlqvllp41/6/23Team MemberRelationshipSpecialtyStart Date End Date Nathan Hathaway DO PCP - GeneralInternal Byypogpi84/6/23am MemberRelationshipSpecialtyStart Date End Date Nathan Hathaway DO PCP - GeneralInternal Isuqnlvs58/6/23Team MemberRelationshipSpecialtyStart Date End Date Nathan Hathaway DO PCP - GeneralInternal Medicine01/31/12Team MemberRelationshipSpecialtyStart Date End Date Nathan Hathaway DO PCP - GeneralInternal Lcfmoviy34/6/23Team MemberRelationshipSpecialtyStart Date End Date Nathan Hathaway DO PCP - GeneralInternal Zyceruir75/6/23Team MemberRelationshipSpecialtyStart Date End Date Nathan Hathaway MD [address] [place] [address] PCP - External PCPInternal Medicine06/29/23Team MemberRelationshipSpecialtyStart DateEnd Date Nathan Hathaway MD [address] [facility] [place] [address] PCP - External PCPInternal Medicine06/29/23Team MemberRelationshipSpecialtyStart DateEnd Date Nathan Hathaway MD [address] [facility] [place] [address] PCP - External PCPInternal Medicine06/29/23Team MemberRelationshipSpecialtyStart DateEnd Date Nathan Hathaway DO PCP - GeneralInternal Jbqufygv30/6/23 Team Status: Inactive Member Role Status Dates Nathan Hathaway DO Primary Care Provide r, Attending Provider Active Start: January 22, 2025 End: January 22, 2025Team MemberRelationshipSpecialtyStart DateEnd Date Nathan Hathaway MD [address] [place] [facility] [place] [address] PCP - GeneralInternal Medicine02/10/25Team MemberRelationshipSpecialtyStart Date End Date Nathan Hathaway DO [address] [facility] [place] [address] PCP - GeneralInternal Medicine02/10/25Team MemberRelationshipSpecialtyStart Date End Date Nathan Hathaway DO [address] [facility] [place] [address] PCP - GeneralInternal Medicine02/10/25Team MemberRelationshipSpecialtyStart Date End Date Nathan Hathaway DO [address] [place] [address] [facility] - [facility] Team Status: Active Member Role Status Hortencia [...] - GeneralInternal Medicine01/31/12Team MemberRelationshipSpecialtyStart Date End Date Natahn Hathaway DO PCP - GeneralInternal Medicine01/31/12 Team [...] Start: July 08, 2025 Fanny Bedoya APRN ENTRY TECH-CAttending ProviderActiveStart: July 08, 2025 Team Status: Active [...] 04, 2025 End: August 04, 2025Kaia Krishna ENTRY TECH-CAttending ProviderActiveStart: August 04, 2025 End: August 04, [...] Start: July 08, 2025 Fanny Bedoya APRN ENTRY TECH-CAttending ProviderActiveStart: July 08, 2025 Team Status: Active [...] 2025 End: August 04, 2025Kaia Krishna , ENTRY TECH-CAttending ProviderActiveStart: August 04, 2025 End: August 04, [...] content) DATE CREATED AUTHOR 03/08/2023 [facility] DATE CREATED AUTHOR AUTHOR'S ORGANIZ ATION 03/09/2023 [facility] DATE CREATED AUTHOR AUTHOR'S ORGANIZ ATION 03/11/2023 [facility] DATE CREATED AUTHOR AUTHOR'S ORGANIZ ATION 02/26/2025 [facility] DATE CREATED AUTHOR AUTHOR'S ORGANIZ ATION 03/26/[address]25 [facility] DATE CREATED AUTHOR AUTHOR'S ORGANIZ ATION 03/26/2025 [facility] DATE CREATED AUTHOR AUTHOR'S ORGANIZ ATION 07/19/2025 [facility] DATE CREATED AUTHOR AUTHOR'S ORGANIZ ATION 08/21/2025 [facility] Goals (unrecognized section and content) [...] BE BASED ON THE PRIMARY CLINICAL RECORDS. [facility]. provides no warranty or guarantee of the accuracy or completeness of information in this document.
--- NOTE | 2025-08-25 19:52 | PC.NURSE ---
this patient awake and alert sitting upright on the bed, this patient voices no concerns, needs and shows no signs of distress. this patient's daughter carried this patient's belongings while walking upstairs, with the patient and I. this patient's paperwork placed on the nursing station desk
[2025-08-25] MEDS: 0.9 % SODIUM CHLORIDE 1,000 ML 50 ML IV (20:23)
[2025-08-25] MEDS: SODIUM CHLORIDE 1,000 MG TABLET 2000 MG PO (20:23)
[2025-08-25] MEDS: ALPRAZOLAM 0.25 MG TABLET PO (20:23)
[2025-08-25] MEDS: ACETAMINOPHEN 325 MG TABLET 650 MG PO (20:23)
[2025-08-25] MEDS: HEPARIN SODIUM (PORCINE) 5,000 UNIT/ML VIAL 5000 UNIT SUBQ (20:23)
[2025-08-25] MEDS: TEMAZEPAM 15 MG CAPSULE PO (20:23)
[2025-08-25] MEDS: GABAPENTIN 100 MG CAPSULE PO (20:23)
[2025-08-25] MEDS: UREA 15 GM POWD.PACK PO (20:23)
[2025-08-25 20:59] LABS: Glucose Urine UA NEGATIVE (NEGATIVE)
[2025-08-25 21:07] LABS: Cast Seen? NONE SEEN #/LPF (NONE SEEN); Crystals Seen? None Seen #/HPF (None Seen); Urine Culture Indicated NO
[2025-08-25] MEDS: ALBUTEROL SULFATE 2.5 MG/3 ML VIAL NEB IH (21:26)
[2025-08-25] MEDS: BUDESONIDE 0.5 MG/2 ML AMPULE NEB IH (21:26)
[2025-08-26] VITALS (22 sets, daily range): BP systolic 125–175; BP diastolic 55–66; PULSE 47–85; TEMP 36.3–36.6; O2SAT 90–95
[2025-08-26] MEDS: SODIUM CHLORIDE 1,000 MG TABLET 2000 MG PO ×3 (05:14→22:16)
[2025-08-26] MEDS: ALBUTEROL SULFATE 2.5 MG/3 ML VIAL NEB IH ×4 (05:36→20:19)
[2025-08-26 05:52] LABS: Hemoglobin 7.6 g/dL (12.0-16.0); Immature Granulocytes Abs Auto 0.02 10^3/uL (0.00-0.03); Immature Granulocytes Pct Auto 0.4 % (0.0-0.5); Lymphocytes Absolute Auto 0.9 10^3/uL (1.2-3.8); Mean Corpuscular HGB Conc 33.9 g/dL (29.9-35.2); Mean Corpuscular Hemoglobin 28.5 pg (26.7-34.0); Mean Corpuscular Volume 83.9 fL (81.0-99.0); Platelet Count 288 10^3/uL (150-450); Red Blood Count 2.67 10^6/uL (4.20-5.40); White Blood Count 5.5 10^3/uL (4.0-11.0)
[2025-08-26 06:30] LABS: Hematocrit 22.4 % (36.0-48.0); Iron 24.0 ug/dL (50.0-170.0); Percent Iron Saturation 8.6 %; Total Iron Binding Capacity 279.0 ug/dL (250.0-450.0)
[2025-08-26] MEDS: ACETAMINOPHEN 325 MG TABLET 650 MG PO ×2 (06:35→16:00)
[2025-08-26 06:45] LABS: Ferritin 237.0 ng/mL (8.0-252.0)
[2025-08-26 06:52] LABS: Anion Gap 10.6; Blood Urea Nitrogen 67.0 mg/dL (7.0-18.0); Calcium 8.8 mg/dL (8.5-10.1); Carbon Dioxide 30.2 mmol/L (21.0-32.0); Chloride 89 mmol/L (98-107); Estimated GFR (African America 36 (>=60 mL/min/1.73m^2); Estimated GFR (Non-African Ame 30 (>=60 mL/min/1.73m^2); Glucose 86 mg/dL (74-106); Magnesium 2.8 mg/dL (1.8-2.4); NT Pro B Type Natriuretic Pept 952.0 pg/mL (<=1800.0); Potassium 4.8 mmol/L (3.5-5.1); Sodium 125 mmol/L (136-145)
--- NOTE | 2025-08-26 08:05 | CM.NOTE ---
Rounds made with Dr. Donovan, discussed with pt reason for admission and plan of care. Pt is inpatient status.
[2025-08-26] MEDS: ALPRAZOLAM 0.25 MG TABLET PO ×2 (08:24→18:58)
[2025-08-26] MEDS: CLOPIDOGREL BISULFATE 75 MG TABLET PO (08:24)
[2025-08-26] MEDS: HEPARIN SODIUM (PORCINE) 5,000 UNIT/ML VIAL 5000 UNIT SUBQ ×2 (08:24→20:38)
[2025-08-26] MEDS: GABAPENTIN 100 MG CAPSULE PO ×2 (08:24→20:38)
[2025-08-26] MEDS: PANTOPRAZOLE SODIUM 40 MG TABLET.DR PO (08:24)
[2025-08-26] MEDS: BUDESONIDE 0.5 MG/2 ML AMPULE NEB IH ×2 (09:15→20:19)
--- NOTE | 2025-08-26 09:29 | PM.HP ---
HPI H&P: HPI History of Present Illness Chief complaint: LOW SODIUM, HYPONATREMIA Narrative: Mrs. Whaley is an 84-year-old female who came to the emergency room complaining of not feeling well, feeling tired and unable to ambulate steadily. Patient was found to have hyponatremia with a sodium level of 121. Patient also was found to have DANICA. No fever or chills. No chest pain or palpitation. Improvement of shortness of breath. Patient was here recently and was discharged on Lasix 80 mg twice a day and metolazone 5 mg as needed. No abdominal pain, nausea or vomiting. No focal weakness or numbness Opioid HPI Opioid Management Most Recent Pain and Opioid Data: Last Pain Scale 2 Today, 08:24 Last Pain Intensity 0 02/19/24, 08: Last Pain Assessment Today, : Last MAR Pain Assessment Today, : Last ORT Total Score 0 08/25/25, 20:01 Last ORT Risk Category Low Risk 08/25/25, 20:01 Review of Systems ROS Status of ROS 10 or more systems reviewed and unremarkable except as noted in history and below PFSH PFS Medical History Chronic heart failure with preserved ejection fraction (HFpEF) ?I50.32 - Chronic diastolic (congestive) heart failure (ICD-10) Peripheral neuropathy ?G62.9 - Polyneuropathy, unspecified (ICD-10) Peripheral edema ?R60.0 - Localized edema (ICD-10) HTN (hypertension) ?I10 - Essential (primary) hypertension (ICD-10) GERD (gastroesophageal reflux disease) ?K21.9 - Gastro-esophageal reflux disease without esophagitis (ICD-10) Pneumonia due to COVID-19 virus ?U07.1 - COVID-19 (ICD-10) ?J12.82 - Pneumonia due to coronavirus disease 2019 (ICD-10) COVID-19 ?U07.1 - COVID-19 (ICD-10) Obesity ?E66.9 - Obesity, unspecified (ICD-10) Coronary artery disease ?I25.10 - Atherosclerotic heart disease of [place] coronary artery without angina pectoris (ICD-10) Surgical History H/O: hysterectomy ?Z90.710 - Acquired absence of both cervix and uterus (ICD-10) Stented coronary artery ?Z95.5 - Presence of coronary angioplasty implant and graft (ICD-10) Family History Brother Family history of diabetes mellitus Family history of cancer Sister Family history of cancer Social History Within the past year, how often did you have a drink containing alcohol: never Within the past year, how often did you have six or more drinks on one occasion: never Score interpretation: A score less than 3 is consistent with normal alcohol consumption. 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 [employer] Known occupational exposures/hazards: No Highest level of school completed/degree received: 11th grade Do you want help with school or training: No Are you now , , , , never or living with a partner: In a typical week, how many times do you talk on the telephone with family, friends, or neighbors: 3 or more times per week How often do you get together with friends or relatives: twice per week How often do you attend tenriism or taoism services: 4 or more times per year Do you belong to any clubs or organizations such as tenriism groups unions, fraternal or athletic groups, or school groups: yes Total score: 4 Score interpretation: A score of greater than or equal to 2 indicates the lowest level of social isolation. Little interest or pleasure in doing things: not at all Feeling down, depressed, or hopeless: not at all Feel stressed/tense/nervous/anxious/difficulty sleeping: only a little Due to disability, difficulty making decisions: No Do you think of yourself as: straight/heterosexual Gender Identity: female Meds Home Medications and Allergies Home Medications ?Medication ?Instructions ?Recorded ?Confirmed ?Type alprazolam 0.25 mg tablet 0.25 mg PO TID PRN anxiety 04/11/23 08/26/25 History gabapentin 100 mg capsule 100 mg PO Q12H 04/11/23 08/26/25 History temazepam 15 mg capsule (Restoril) 15 mg PO .hs PRN sleep 04/11/23 08/26/25 History clopidogrel 75 mg tablet 75 mg PO DAILY 07/27/23 08/26/25 History rosuvastatin 40 mg tablet 40 mg PO DAILY 02/18/24 08/26/25 History pantoprazole 40 mg tablet,delayed 40 mg PO .QD 08/10/25 08/26/25 History release umeclidinium 62.5 mcg-vilanterol 1 inh inhalation Q24H 08/10/25 08/26/25 History 25 mcg/actuation powdr for inhalation (Anoro Ellipta) valsartan 80 mg tablet 80 mg PO .QD 08/10/25 08/26/25 History nifedipine 90 mg tablet,extended 90 mg PO DAILY #30 tabs 08/11/25 08/26/25 Rx release 24 hr budesonide-formoterol HFA 160 2 inh inhalation BID #10.2 grams 08/16/25 08/26/25 Rx mcg-4.5 mcg/actuation aerosol inhaler (Symbicort) furosemide 80 mg tablet (Lasix) 80 mg PO BID #30 tabs 08/16/25 08/26/25 Rx metolazone 5 mg tablet 5 mg PO DAILY PRN leg 08/16/25 08/26/25 Rx swelling/weight gain #30 tabs Allergies Allergy/AdvReac Type Severity Reaction Status Date / Time azithromycin Allergy Severe Unknown Verified 08/25/25 17:44 amlodipine Allergy Unknown Verified 08/25/25 17:44 doxycycline Allergy Unknown Verified 08/25/25 17:44 duloxetine (From Cymbalta) Allergy Unknown Verified 08/25/25 17:44 ondansetron (From Zofran) Allergy Unknown Verified 08/25/25 17:44 sulfamethoxazole (From Allergy Unknown Verified 08/25/25 17:44 Bactrim) tetanus and diphtheria Allergy Unknown Verified 08/25/25 17:44 toxoids trimethoprim (From Bactrim) Allergy Unknown Verified 08/25/25 17:44 codeine AdvReac Severe Anxiety Verified 08/25/25 17:44 Exam Narrative Exam Narrative: [pt is awake and alert. oriented to place, time and person HEENT: [place] conjunctiva and dry buccal mucosa Neck: Supple, no tenderness Endocrine: No Thyromegaly. Vascular: No JVD or carotid bruit. Lymphatic: No cervical lymphadenopathy. Chest: CTA no DTP. Heart RRR, no extra sound or murmur. Abd: Soft, no tenderness, no rebound and no rigidity. Increase abd girth therefore clinically I could not exclude the possibility of intra abd mass or organomegaly. LE: No cyanosis or clubbing, no varices or edema. Neuro: A A O. Nl speech, comprehension and attention. Nl and symetrical motor and tone examination through out. []] Constitutional Vital Signs, click to edit/add: Last Vital Signs Temp 97.5 F L 08/26/25 08:25 Pulse 53 L 08/26/25 08:25 Resp 18 08/26/25 08:25 BP 127/55 08/26/25 08:25 Pulse Ox 92 L 08/26/25 09:18 O2 Del Method Room Air 08/26/25 09:18 Results Labs Labs: Short CBC 08/26/25 Range/Units 05:35 WBC 5.5 (4.0-11.0) 10^3/uL Hgb 7.6 L (12.0-16.0) g/dL Hct 22.4 L* (36.0-48.0) % Plt Count 288 (150-450) 10^3/uL BMP 08/25/25 08/26/25 18:32 05:35 Sodium 121 L* 125 L Potassium 5.2 H 4.8 Chloride 85 L 89 L Carbon Dioxide 28.0 30.2 BUN 54.0 H 67.0 H Creatinine 1.67 H 1.66 H Glucose 135 H 86 Calcium 8.8 8.8 Urine 08/25/25 Range/Units 20:45 Urine Color Lt. yellow (YELLOW) Urine Clarity Clear (CLEAR) Urine pH 5.5 (5.0-9.0) Ur Specific [place] <=1.005 A (1.005-1.025) Urine Protein 30 A (NEG/TRACE) mg/dL Urine Glucose (UA) Negative (NEGATIVE) mg/dL Assessment and Plan Assessment and Plan (1) Hyponatremia: (2) CKD (chronic kidney disease) stage 3, GFR 30-59 ml/min: (3) Bradycardia: (4) Hypothyroidism: Plan Hyponatremia. This is associated with mild DANICA, relatively low blood pressure and low chloride level highly suggestive of hypovolemic hyponatremia. Patient was discharged recently on Lasix 80 mg twice a day and metolazone Patient also admitted that she is drinking lot of fluid throughout the day and night. There could be an element of polydipsia. I had accepted to admit patient to the medical and telemetry unit Holding her diuretics. Started her on normal saline at 50 an hour. Start patient on sodium chloride tablet and 1 dose of urea Requested to check serum and urine osmolality, TSH and cortisol level to rule out other possible etiologies for hyponatremia. Anemia, chronic and progressive. No clinical evidence of acute or massive blood loss at this time. Requested iron study which came back consistent with anemia of chronic disease or likely mixed etiology. Her iron saturation is less than 10. I requested a stool Hemoccult. Start the patient on PPI for GI bleed prophylaxis I started the patient on iron infusion Monitor hemoglobin. Probable transfusion if needed. Patient will likely require to have anemia workup to be done in the outpatient setting to be handled by PCP in collaboration with other needed outpatient providers. This may include but not limited to EGD, colonoscopy, referral to see hematology and other needed age-appropriate cancer screening. Recent admission with fluid overload. Last echocardiogram was done in January 2024 showed normal ejection fraction but possible diastolic heart failure. Repeat echocardiogram to assess cardiac function and determine the most appropriate diuretic dosage. Microscopic hematuria. Unknown etiology. Patient is on a Plavix but could be causing or contributing to her hematuria Requested urine culture rule out UTI. Likely this will need to be investigated further. She may need to have cystoscopy and further urological imaging to rule out underlying malignancy. To be followed up by PCP in collaboration with the urology in the outpatient setting. DANICA/CKD. DANICA could have been caused by aggressive diuresis Requested renal ultrasound Check postvoid residual CKD is multifactorial. Could be related to advanced age in the setting of progressive cardiovascular disease I noticed that the patient had light chain measurement. She was found to have elevated kappa chain with elevated ratio at 10.59. Requested serum electrophoresis to rule out degree of multiple myeloma or light chain gammopathy. May need to follow-up with hematology. COPD, no exacerbation. Not sure if patient had PFT before. Unknown the etiology of her COPD. This will need to be followed up. PCP could handle this or in collaboration with the pulmonary. Hypertension and borderline bradycardia. TSH is normal. Hold Diovan due to borderline hypotension Reduce nifedipine dose. Continue to monitor condition. DVT prophylax Heparin subcu. Close monitoring of hemoglobin.
--- NOTE | 2025-08-26 09:44 | SWNOTE1 ---
SW stopped in to see pt, but pt having testing done. SW to try again later.
--- NOTE | 2025-08-26 09:46 | US_ITS ---
The [address] [address] Patient Name: LASHAUN JOAQUIN MRN: [id number] date: 1940 Sex: F Assigned Patient Location: Current Patient Location: Accession/Order Number: [id number] Exam Date: 08/26/2025 09:50 Report Date: 08/26/2025 11:12 At the request of: JOHNSON FERNANDEZ MD Procedure: US renal BI BILATERAL RENAL AND BLADDER ULTRASOUND CLINICAL HISTORY: DANICA, CKD, hematuria COMPARISON: CT 11/19/2020 Estimation of renal size is approximately 8.7 cm on the right and 9.6 cm on the left. No shadowing calculi or hydronephrosis are identified. A cyst is present at the midpole of the right kidney measuring 4.5 x 5.1 x 4.8 cm in size.. There is no perinephric fluid. The urinary bladder is partially distended with a volume of 417 mL. No contour or intraluminal abnormalities are seen. US/US renal BI IMPRESSION: RIGHT RENAL CYST. NO OBSTRUCTIVE UROPATHY. Impression dictated by: Shelli Israel M.D. 08/26/2025 11:12 AM Dictation Location: [place] [address] Electronically authenticated by: [id number] Y Date: 08/26/2025 11:12
--- NOTE | 2025-08-26 11:37 | CM.NOTE ---
Important Message From Medicare discussed with pt, pt verbalizes understanding and signs paper. Original given to pt and copy placed in pt's chart. Pt verbalizes concern with medications changes so much in the last 3 months. Pt concerned about keeping medications straight with what is D/C'd and what is new. Explained to pt that on her discharge paperwork it always states new medications, medications to continue, and what medications are to stop. Pt very anxious d/t readmitting for the 3rd time. Discussed with pt HH services and having a nurse come into home, pt would like to discuss with her daughters. CM or SS will check back with pt prior to discharge.
[2025-08-26] MEDS: CEFUROXIME AXETIL 250 MG TABLET PO ×2 (11:38→20:38)
[2025-08-26 12:36] LABS: Anion Gap 12.0; Blood Urea Nitrogen 62.0 mg/dL (7.0-18.0); Calcium 8.2 mg/dL (8.5-10.1); Carbon Dioxide 27.4 mmol/L (21.0-32.0); Chloride 91 mmol/L (98-107); Estimated GFR (African America 37 (>=60 mL/min/1.73m^2); Estimated GFR (Non-African Ame 30 (>=60 mL/min/1.73m^2); Glucose 179 mg/dL (74-106); Potassium 4.4 mmol/L (3.5-5.1); Sodium 126 mmol/L (136-145)
--- NOTE | 2025-08-26 14:10 | CM.NOTE ---
CM in to speak with pt regarding discharge planning. Pt states she also just had home oxygen ordered from Dr. Bateman. Pt states she only wears at HS from [facility]. SW updated.
[2025-08-26] MEDS: IRON SUCROSE COMPLEX 100 MG in 0.9 % SODIUM CHLORIDE 100 ML 420 MG IV (14:11)
--- NOTE | 2025-08-26 14:18 | SWNOTE1 ---
SW spoke to case management and pt does have home oxygen. Pt told Case management that Dr. Bateman set it up and it is for night time only, usnure of liter flow and possibly [facility]. MAILE called and spoke to Francisca at [facility]. She voiced that pt does have oxygen from them. It was set up over the weekend, on the . Francisca was able to see the physician NPI and gave to MAILE and it was Dr. Fleming from our hospital. It was set up on the . It is for 2 liters continuous. SW to let case management and pt's nurse know.
[2025-08-26] MEDS: POLYETHYLENE GLYCOL 3350 17 GM POWDER PACKET PO (16:00)
[2025-08-26] MEDS: SENNOSIDES/DOCUSATE SODIUM 1 TAB TABLET PO (16:00)
[2025-08-26] MEDS: 0.9 % SODIUM CHLORIDE 1,000 ML 50 ML IV (16:04)
[2025-08-26] MEDS: ONDANSETRON 4 MG RAPDIS TABLET PO (17:33)
--- NOTE | 2025-08-26 19:30 | CA_ITS ---
Patient Name: LASHAUN JOAQUIN MR#: [id number] : 1940 Exam Date: 08/26/2025 Ordering Doctor: JOHNSON FERNANDEZ ECHOCARDIOGRAM REPORT PROCEDURE: CA ECHO DOPPLER COMPLETE INDICATIONS: CHF COMPARISON: None. DESCRIPTION: COMPLETE ECHOCARDIOGRAM Real-time transthoracic echocardiography with 2D, M-mode, spectral and color flow Doppler performed. QUALITY: Technical quality was good. LEFT VENTRICLE: Normal chamber size. Normal left ventricle wall thickness. Hyperdynamic left ventricle systolic function without wall motion abnormalities. Visual estimation of left ventricular ejection fraction is hyperdynamic at 75%. LV EF: DIASTOLIC: Normal diastolic function. ATRIAL SEPTUM: Appears intact LEFT ATRIUM: Moderate dilatation. RIGHT ATRIUM: Moderate dilatation. RIGHT VENTRICLE: Normal chamber size. Normal right ventricular systolic function. TRICUSPID VALVE: Normal mobility and thickness. No stenosis with mild to moderate regurgitation. Moderate pulmonary hypertension. RVSP 56mmHg. MITRAL VALVE: Normal mobility and thickness. No evidence of mitral valve stenosis. There is no mitral annular calcification. Trivial mitral regurgitation. AORTIC VALVE: Normal trileaflet appearance. No visible sclerosis. Normal leaflet mobility. No evidence of aortic valve stenosis. No aortic regurgitation. AORTIC ROOT: Normal diameter and appearance. PULMONIC VALVE: Normal thickness and mobility. No stenosis. Mild regurgitation. PERICARDIUM: No evidence of pericardial effusion. IVC: Collapes with inspirations. Mildly dilated measuring 2.3cm, consistent with RAP 8 mmHg. 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 Adult Echocardiography Procedure Report Left Ventricle LVEDD (3.7 - 5.6 cm): 4.87 cm LVESD (2.2 - 4.0 cm): 3.18 cm LVIVS thickness (0.6 - 1.2 cm): 1.05 cm LVPW thickness (0.5 - 1.0 cm): 0.91 cm e': 0.10 m/s E - e': 13.41 LVOT Max Gradient: 7.26 mm[Hg] LVOT Area (cm2): 1.35 m/s Peak Velocity (LVOT): 1.35 m/s Mean Velocity (LVOT): 0.88 m/s LVOT Diameter 1.93 cm Left Ventricular Ejection Fraction: 83.52 % Left Atrium LA Volume Index (2D A2C): 49.80 ml/m2 Left Atrium Systolic Dimension: 4.45 cm Mitral Valve MV E to A Ratio: 1.83 MV Max Gradient: MV Mean Gradient: Mitral Valve A-Wave Peak Velocity: 0.75 m/s Mitral Valve E-Wave Peak Velocity: 1.38 m/s Cardiovascular Orifice Area: Right Ventricle RV Internal Diastolic Dimension: 3.36 cm Aorta AO Root Diam: 2.93 cm Ascending Ao Diam: 2.60 cm Aortic Valve AoV Area (Peak [place]): 2.10 cm2, 2.10 cm2 AoV Area (VTI): 2.35 cm2, 2.35 cm2 Deceleration [place]: Pressure Half-Time: Peak Velocity(Antegrade Flow): 1.87 m/s Peak Gradient(Antegrade Flow): 14.06 mm[Hg] Mean Velocity(Antegrade Flow): 1.27 m/s Mean Gradient(Antegrade Flow): 7.15 mm[Hg] Velocity Time Integral: 38.12 cm Tricuspid Valve Peak Velocity (Regurgitant Flow): 3.39 m/s, 3.22 m/s, 3.47 m/s Peak Velocity: Pulmonic Valve Mean Gradient: 3.70 mm[Hg], 3.71 mm[Hg] Mean Velocity: 0.91 m/s, 0.91 m/s Peak Velocity: 1.34 m/s Peak Gradient: 6.80 mm[Hg], 7.47 mm[Hg] Right Atrium, area 22 cm? Dictated by: Magdiel Loomis MD on 08/26/2025 at 18:12 Approved by: Magdiel Loomis MD on 08/26/2025 at 18:21
[2025-08-26 20:12] LABS: Anion Gap 12.3; Blood Urea Nitrogen 60.0 mg/dL (7.0-18.0); Calcium 8.3 mg/dL (8.5-10.1); Carbon Dioxide 27.5 mmol/L (21.0-32.0); Chloride 94 mmol/L (98-107); Estimated GFR (African America 38 (>=60 mL/min/1.73m^2); Estimated GFR (Non-African Ame 31 (>=60 mL/min/1.73m^2); Glucose 163 mg/dL (74-106); Potassium 4.8 mmol/L (3.5-5.1); Sodium 129 mmol/L (136-145)
[2025-08-26] MEDS: TRAMADOL HCL 50 MG TABLET PO (20:38)
[2025-08-26] MEDS: TEMAZEPAM 15 MG CAPSULE PO (22:16)
[2025-08-27] VITALS (29 sets, daily range): BP systolic 117–165; BP diastolic 57–73; PULSE 52–78; TEMP 17.2–36.9; O2SAT 82–97
[2025-08-27 05:32] LABS: Mean Corpuscular HGB Conc 33.3 g/dL (29.9-35.2); Mean Corpuscular Hemoglobin 28.9 pg (26.7-34.0); Mean Corpuscular Volume 86.6 fL (81.0-99.0); Platelet Count 226 10^3/uL (150-450); Red Blood Count 2.32 10^6/uL (4.20-5.40); White Blood Count 4.7 10^3/uL (4.0-11.0)
[2025-08-27 05:48] LABS: Anion Gap 13.3; Blood Urea Nitrogen 59.0 mg/dL (7.0-18.0); Calcium 7.9 mg/dL (8.5-10.1); Carbon Dioxide 28.0 mmol/L (21.0-32.0); Chloride 97 mmol/L (98-107); Estimated GFR (African America 37 (>=60 mL/min/1.73m^2); Estimated GFR (Non-African Ame 30 (>=60 mL/min/1.73m^2); Glucose 83 mg/dL (74-106); Potassium 5.3 mmol/L (3.5-5.1); Sodium 133 mmol/L (136-145)
[2025-08-27 05:49] LABS: Alanine Aminotransferase 18 U/L (14-59); Albumin Globulin Ratio 1.0; Albumin Level 2.5 g/dL (3.4-5.0); Alkaline Phosphatase 38 U/L (46-116); Aspartate Amino Transferase 19 U/L (15-37); Globulin 2.6 g/dL; Total Protein 5.1 g/dL (6.4-8.2)
[2025-08-27 06:02] LABS: Hematocrit 20.1 % (36.0-48.0); Hemoglobin 6.7 g/dL (12.0-16.0)
[2025-08-27] MEDS: SODIUM CHLORIDE 1,000 MG TABLET 2000 MG PO ×3 (06:39→21:10)
[2025-08-27 07:07] LABS: Vitamin B12 1232 pg/mL (232-1245)
--- NOTE | 2025-08-27 08:10 | CM.NOTE ---
Rounds made with Dr. Donovan, discussed plan of care with pt. Pt receiving blood transfusion this am. PT and OT will evaluate pt after PRBC's for discharge planning.
--- NOTE | 2025-08-27 08:13 | P.PN_ITS ---
Progress Note: Subjective Subjective Interval history: Patient reported having anxiety yesterday. She is known to have anxiety. Her daughter stated that her doctor increased her Xanax up to 4 times a day as needed. No chest pain. No abdominal pain. No nausea or vomiting. Exam Narrative Exam Narrative: [pt is awake and alert. oriented to place, time and person HEENT: [place] conjunctiva and dry buccal mucosa, improved Neck: Supple, no tenderness Endocrine: No Thyromegaly. Vascular: No JVD or carotid bruit. Lymphatic: No cervical lymphadenopathy. Chest: CTA no DTP. Heart RRR, no extra sound or murmur. Abd: Soft, no tenderness, no rebound and no rigidity. Increase abd girth therefore clinically I could not exclude the possibility of intra abd mass or organomegaly. LE: No cyanosis or clubbing, no varices or edema. Neuro: A A O. Nl speech, comprehension and attention. Nl and symetrical motor and tone examination through out. []] Constitutional Vital Signs, click to edit/add: Last Vital Signs Temp 97.7 F 08/27/25 07:48 Pulse 58 L 08/27/25 08:00 Resp 20 08/27/25 07:48 BP 122/68 08/27/25 07:48 Pulse Ox 94 L 08/27/25 07:48 O2 Del Method Nasal Cannula 08/27/25 07:48 O2 Flow Rate 2 08/27/25 07:48 Progress Note: Objective Labs Labs: Short CBC 08/27/25 Range/Units 04:54 WBC 4.7 (4.0-11.0) 10^3/uL Hgb 6.7 L* (12.0-16.0) g/dL Hct 20.1 L* (36.0-48.0) % Plt Count 226 (150-450) 10^3/uL BMP 08/26/25 08/26/25 08/27/25 12:19 19:58 04:54 Sodium 126 L 129 L 133 L Potassium 4.4 4.8 5.3 H Chloride 91 L 94 L 97 L Carbon Dioxide 27.4 27.5 28.0 BUN 62.0 H 60.0 H 59.0 H Creatinine 1.63 H 1.58 H 1.62 H Glucose 179 H 163 H 83 Calcium 8.2 L 8.3 L 7.9 L Liver Function 08/27/25 Range/Units 04:54 Total Bilirubin 0.2 (0.2-1.0) mg/dL Direct Bilirubin 0.1 (0.0-0.2) mg/dL AST 19 (15-37) U/L ALT 18 (14-59) U/L Alkaline Phosphatase 38 L (46-116) U/L Albumin 2.5 L (3.4-5.0) g/dL Progress Note: A&P Assessment and Plan (1) Hyponatremia: (2) CKD (chronic kidney disease) stage 3, GFR 30-59 ml/min: (3) Bradycardia: (4) Hypothyroidism: Plan Hyponatremia. This is associated with mild DANICA, relatively low blood pressure and low chloride level highly suggestive of hypovolemic hyponatremia. Patient was discharged recently on Lasix 80 mg twice a day and metolazone Patient also admitted that she is drinking lot of fluid throughout the day and night. There could be an element of polydipsia. I had accepted to admit patient to the medical and telemetry unit Holding her diuretics. Started her on normal saline at 50 an hour. Start patient on sodium chloride tablet and 1 dose of urea Requested to check serum and urine osmolality, TSH and cortisol level to rule out other possible etiologies for hyponatremia. Sodium level is up to 133. TSH is normal ruling out hypothyroidism. Serum and urine osmolality as well as cortisol level are pending. Discontinue IV fluid infusion. Keep patient in euvolemic state. Continue fluid and water restriction. Anemia, chronic and progressive. No clinical evidence of acute or massive blood loss at this time. Requested iron study which came back consistent with anemia of chronic disease or likely mixed etiology. Her iron saturation is less than 10. I requested a stool Hemoccult. This came back negative. Start the patient on PPI for GI bleed prophylaxis I started the patient on iron infusion. I will add Procrit when I do not storages repleted. Hemoglobin dropped overnight. Could be caused by IV fluid hydration. 1 unit of RBC transfusion. Recheck H&H at 6 PM. Patient will likely require to have anemia workup to be done in the outpatient setting to be handled by PCP in collaboration with other needed outpatient providers. This may include but not limited to EGD, colonoscopy, referral to see hematology and other needed age-appropriate cancer screening. Recent admission with fluid overload. Last echocardiogram was done in January 2024 showed normal ejection fraction but possible diastolic heart failure. Repeat echocardiogram to assess cardiac function and determine the most appropriate diuretic dosage. Echocardiogram does not show any systolic dysfunctio. Positive for moderate tricuspid regurg. Positive for moderate pulmonary hypertension. Microscopic hematuria. Unknown etiology. Patient is on a Plavix but could be causing or contributing to her hematuria Requested urine culture rule out UTI. Likely this will need to be investigated further. She may need to have cystoscopy and further urological imaging to rule out underlying malignancy. To be followed up by PCP in collaboration with the urology in the outpatient set ting. DANICA/CKD. DANICA could have been caused by aggressive diuresis Requested renal ultrasound. This came back negative for obstructive uropathy but positive for renal cyst which may be causing her microscopic hematuria. Check postvoid residual CKD is multifactorial. Could be related to advanced age in the setting of progressive cardiovascular disease I noticed that the patient had light chain measurement. She was found to have elevated kappa chain with elevated ratio at 10.59. Requested serum electrophoresis to rule out degree of multiple myeloma or light chain gammopathy. May need to follow-up with hematology. COPD, no exacerbation. Not sure if patient had PFT before. Unknown the etiology of her COPD. This will need to be followed up. PCP could handle this or in collaboration with the pulmonary. Hypertension and borderline bradycardia. TSH is normal. Hold Diovan due to borderline hypotension Discontinued nifedipine Continue to monitor condition. DVT prophylax Heparin subcu. Close monitoring of hemoglobin.
[2025-08-27] MEDS: GABAPENTIN 100 MG CAPSULE PO ×2 (08:18→21:14)
[2025-08-27] MEDS: CEFUROXIME AXETIL 250 MG TABLET PO ×2 (08:18→21:13)
[2025-08-27] MEDS: CLOPIDOGREL BISULFATE 75 MG TABLET PO (08:18)
[2025-08-27] MEDS: ALPRAZOLAM 0.25 MG TABLET PO ×3 (08:19→21:13)
[2025-08-27] MEDS: FUROSEMIDE 20 MG/2 ML VIAL IVP ×3 (08:19→15:22)
[2025-08-27] MEDS: HEPARIN SODIUM (PORCINE) 5,000 UNIT/ML VIAL 5000 UNIT SUBQ ×2 (08:19→21:10)
[2025-08-27] MEDS: PANTOPRAZOLE SODIUM 40 MG TABLET.DR PO (08:19)
[2025-08-27] MEDS: ALBUTEROL SULFATE 2.5 MG/3 ML VIAL NEB IH ×3 (08:41→20:08)
[2025-08-27] MEDS: BUDESONIDE 0.5 MG/2 ML AMPULE NEB IH ×2 (08:41→20:08)
--- NOTE | 2025-08-27 09:12 | RESP.RT ---
Titrated to 2 lpm
[2025-08-27] MEDS: SENNOSIDES/DOCUSATE SODIUM 1 TAB TABLET 2 TAB PO (10:59)
[2025-08-27] MEDS: MAGNESIUM HYDROXIDE 2,400 MG/10 ML ORAL.SUSP 2400 MG PO (11:00)
[2025-08-27] MEDS: TRAMADOL HCL 50 MG TABLET PO ×2 (11:59→21:12)
[2025-08-27] MEDS: IRON SUCROSE COMPLEX 100 MG in 0.9 % SODIUM CHLORIDE 100 ML 420 MG IV (12:00)
--- NOTE | 2025-08-27 13:11 | PC.NURSE ---
Pre blood vitals taken at 12:46. Blood unit number [id number] and expiration date 09/02/25 confirmed with Mars FARR and Lenora FARR. Blood then started at 12:50.
[2025-08-27 14:08] LABS: Albumin 2.9 g/dL (2.9-4.4); Alpha-1-Globulin 0.3 g/dL (0.0-0.4); Alpha-2-Globulin 1.0 g/dL (0.4-1.0); Gamma Globulin 0.3 g/dL (0.4-1.8)
--- NOTE | 2025-08-27 14:37 | SWNOTE1 ---
SW stopped in to see pt and review recommendations of SNF from therapy. Pt's daughter in room as well. SW asked pt how she was feeling? Pt's daughter let SW know that they are waiting on her anxiety medication and that she does need that now. 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 Pt then became tearful and voiced she just has not had the care that she needs today. SW offered support to pt. SW asked what SW can do to help. Daughter voiced that she needs her anxiety medication so she does not miss dose and then spiral for the rest of the evening. At this time nurse came in room as well. Manish the nurse voiced she has to take vitals and then patient will be due for her anxiety med. SW allowed nurse to take vitals and spoke to the daughter. Daughter did ask SW about home health coming in. Daughter asked for a nurse and PT. She did ask SW if the nurse can be an RN every time, SW was unsure of this, but will find out. Daughter voiced that family has bad experience with nurse that is PCT. Daughter did ask about [facility] and also asked recommendations for companies. SW advised that SW can bring in list from Medicare.gov with star ratings. Daughter would like to review. Pt then did tell daughter and SW that someone did talk to her about a nursing facility for a week. SW did let her know that therapy did recommend short term skilled stay. Pt is getting blood, 2 units SW does believe, and that therapy will re-evaluate tomorrow. Pt is agreeable to home health services. SW to bring list to daughter. SW provided pt's daughter with home health list from medicare.gov. SW advised that SW ill call some home health companies to find out if RN only can be sent to home. SW called [address] and spoke to intake. They voiced the RN does the initial assessment and then an PCT comes out, unless RN is needed. MAILE reached out to [facility] via email. Meagan from [facility] emailed SW back and stated : We usually send PCT?s out when a patient needs to be seen at a high frequency and the RN isnt available. But if they would rather not have an PCT, we will put a notice on their chart so they don?t see one! SW to let daughter know. SW also updated case management
--- NOTE | 2025-08-27 15:02 | SWNOTE1 ---
SW let daughter know about [employer] and [facility] responses to SW question. Daughter would like to know if Medicare will stay pay for RN if it is by request of family since it normally would be PATIENT ACCOUNT SPECIALIST coming to do follow up visits.
--- NOTE | 2025-08-27 15:20 | SWNOTE1 ---
SW did receive message back from Meagan at [facility] and she voiced that Medicare does cover even if RN every visit. SW let daughter know information. She voiced that was good. Daughter did bring up [facility] again and mentioned the [facility]. She asked SW if we helped with that process. SW advised yes that SW would reach out to [facility] and send information and make sure they have a bed available. She voiced understanding. Daughter did let SW know she would be here tomorrow and then they will see how she does with therapy and then make that decision. Pt's daughter did ask what nurse would have pt this evening, SW was unsure, but advised SW can speak with Pily, director of MED/SURGE. Daughter stated that will help her determine if she will stay the night with her mother or not. SW did call Pily, waiting for call back.
[2025-08-27] MEDS: ACETAMINOPHEN 325 MG TABLET 650 MG PO ×2 (15:23→21:13)
--- NOTE | 2025-08-27 15:23 | SWNOTE1 ---
MAILE did send referral to [facility]. Referral included face sheet, ED note, H&P, physician notes, and PT/OT notes.
--- NOTE | 2025-08-27 16:58 | PC.NURSE ---
Blood transfusion stopped at 15:53. Blood unit number is [id number] and expiration date is 09/02/25. Verified by Pily RN and myself RN. Patients vitals checked 15 minutes after transfusion started, an hour into transfusion after the first set of vitals at 15 mins and right after transfusion was stopped.
--- NOTE | 2025-08-27 17:56 | PC.NURSE ---
Patients blood transfusion stopped at 15:53. Blood verified by two RNs, Pily RN and myself RN when the blood was stopped. Blood unit number is [id number] and expiration date is 09/02/2025. Vitals were taken 15 mins after transfusion started at 1305 and an hour after the first 15 min vitals were taken which was at 14:05. Then another set was taken two hours into the transfusion at 15:05.
[2025-08-27 18:25] LABS: Hematocrit 27.3 % (36.0-48.0); Hemoglobin 9.2 g/dL (12.0-16.0)
--- NOTE | 2025-08-27 18:32 | PC.NURSE ---
After blood transfusion was ended at 15:53, vitals were checked at 16:05
[2025-08-27 18:36] LABS: Anion Gap 13.4; Blood Urea Nitrogen 56.0 mg/dL (7.0-18.0); Calcium 8.0 mg/dL (8.5-10.1); Carbon Dioxide 25.6 mmol/L (21.0-32.0); Chloride 100 mmol/L (98-107); Estimated GFR (African America 37 (>=60 mL/min/1.73m^2); Estimated GFR (Non-African Ame 31 (>=60 mL/min/1.73m^2); Glucose 147 mg/dL (74-106); Potassium 5.0 mmol/L (3.5-5.1); Sodium 134 mmol/L (136-145)
[2025-08-27] MEDS: FUROSEMIDE 40 MG/4 ML VIAL IVP (21:08)
[2025-08-27] MEDS: TEMAZEPAM 15 MG CAPSULE PO (21:12)
[2025-08-27] MEDS: HYDRALAZINE HCL 25 MG TABLET PO (21:14)
[2025-08-28] VITALS (22 sets, daily range): BP systolic 135–162; BP diastolic 56–74; PULSE 59–91; TEMP 36.5–36.8; O2SAT 72–95
[2025-08-28 05:58] LABS: Hematocrit 27.3 % (36.0-48.0); Hemoglobin 8.9 g/dL (12.0-16.0); Mean Corpuscular HGB Conc 32.6 g/dL (29.9-35.2); Mean Corpuscular Hemoglobin 28.3 pg (26.7-34.0); Mean Corpuscular Volume 86.9 fL (81.0-99.0); Platelet Count 287 10^3/uL (150-450); Red Blood Count 3.14 10^6/uL (4.20-5.40); White Blood Count 5.5 10^3/uL (4.0-11.0)
[2025-08-28 06:23] LABS: Anion Gap 11.6; Blood Urea Nitrogen 54.0 mg/dL (7.0-18.0); Calcium 8.4 mg/dL (8.5-10.1); Carbon Dioxide 29.4 mmol/L (21.0-32.0); Chloride 102 mmol/L (98-107); Estimated GFR (African America 38 (>=60 mL/min/1.73m^2); Estimated GFR (Non-African Ame 32 (>=60 mL/min/1.73m^2); Glucose 83 mg/dL (74-106); Potassium 5.0 mmol/L (3.5-5.1); Sodium 138 mmol/L (136-145)
--- NOTE | 2025-08-28 08:10 | CM.NOTE ---
Rounds made with Dr. Donovan, discussed plan of care with pt and daughter. Discussed skilled care at discharge for safety, pt and daughter both in agreement for [facility] at discharge. Updated SW about change in discharge plan. SW or CM will follow pt notes for today.
[2025-08-28] MEDS: CEFUROXIME AXETIL 250 MG TABLET PO ×2 (08:49→20:49)
[2025-08-28] MEDS: IRON SUCROSE COMPLEX 100 MG in 0.9 % SODIUM CHLORIDE 100 ML 420 MG IV (08:49)
[2025-08-28] MEDS: SENNOSIDES/DOCUSATE SODIUM 1 TAB TABLET 2 TAB PO (08:49)
[2025-08-28] MEDS: CLOPIDOGREL BISULFATE 75 MG TABLET PO (08:49)
[2025-08-28] MEDS: PANTOPRAZOLE SODIUM 40 MG TABLET.DR PO (08:49)
[2025-08-28] MEDS: ALPRAZOLAM 0.25 MG TABLET PO (08:49)
[2025-08-28] MEDS: GABAPENTIN 100 MG CAPSULE PO ×2 (08:49→20:49)
[2025-08-28] MEDS: SODIUM CHLORIDE 1,000 MG TABLET 2000 MG PO (08:49)
[2025-08-28] MEDS: HEPARIN SODIUM (PORCINE) 5,000 UNIT/ML VIAL 5000 UNIT SUBQ ×2 (08:50→20:49)
[2025-08-28] MEDS: POLYETHYLENE GLYCOL 3350 17 GM POWDER PACKET PO (08:53)
[2025-08-28] MEDS: BUDESONIDE 0.5 MG/2 ML AMPULE NEB IH ×2 (09:23→21:18)
[2025-08-28] MEDS: ALBUTEROL SULFATE 2.5 MG/3 ML VIAL NEB IH ×3 (09:23→21:18)
--- NOTE | 2025-08-28 09:31 | SWNOTE1 ---
SW spoke to case management and pt and daughter would now like the [facility] for skilled. SW to see if they have any openings. SW called [facility] and [facility] were not available. MAILE sent email to [facility] to see if they have openings, waiting to hear back.
--- NOTE | 2025-08-28 10:00 | SWNOTE1 ---
[facility]iy[facility] at [facility] did reply back to and they do have openings and to send referral. Referral sent to [facility]. Referral included face sheet, ED note, H&P, provider notes, case management report,, nursing notes, diagnostic imaging, med list, and PT/OT notes.
--- NOTE | 2025-08-28 10:21 | PM.PN ---
Progress Note: Subjective Subjective Interval history: Patient reported having anxiety yesterday. She is known to have anxiety. Otherwise no chest pain or palpitation. No abdominal pain, nausea or vomiting. Exam Narrative Exam Narrative: [pt is awake and alert. oriented to place, time and person HEENT: [place] conjunctiva and normal buccal Ko[place]. Neck: Supple, no tenderness Endocrine: No Thyromegaly. Vascular: No JVD or carotid bruit. Lymphatic: No cervical lymphadenopathy. Chest: CTA no DTP. Heart RRR, no extra sound or murmur. Abd: Soft, no tenderness, no rebound and no rigidity. Increase abd girth therefore clinically I could not exclude the possibility of intra abd mass or organomegaly. LE: No cyanosis or clubbing, no varices or edema. Neuro: A A O. Nl speech, comprehension and attention. Nl and symetrical motor and tone examination through out. []] Constitutional Vital Signs, click to edit/add: Last Vital Signs Temp 98 F 08/28/25 07:45 Pulse 67 08/28/25 09:55 Resp 18 08/28/25 04:00 BP 158/70 H 08/28/25 07:45 Pulse Ox 91 L 08/28/25 09:29 O2 Del Method Nasal Cannula 08/28/25 09:29 O2 Flow Rate 3 08/28/25 09:29 Progress Note: Objective Labs Labs: Short CBC 08/27/25 08/28/25 Range/Units 18:20 05:09 WBC 5.5 (4.0-11.0) 10^3/uL Hgb 9.2 L 8.9 L (12.0-16.0) g/dL Hct 27.3 L 27.3 L (36.0-48.0) % Plt Count 287 (150-450) 10^3/uL BMP 08/27/25 08/28/25 18:20 05:09 Sodium 134 L 138 Potassium 5.0 5.0 Chloride 100 102 Carbon Dioxide 25.6 29.4 BUN 56.0 H 54.0 H Creatinine 1.61 H 1.57 H Glucose 147 H 83 Calcium 8.0 L 8.4 L Progress Note: A&P Assessment and Plan (1) Hyponatremia: (2) CKD (chronic kidney disease) stage 3, GFR 30-59 ml/min: (3) Bradycardia: (4) Hypothyroidism: Plan Hyponatremia. This is associated with mild DANICA, relatively low blood pressure and low chloride level highly suggestive of hypovolemic hyponatremia. Patient was discharged recently on Lasix 80 mg twice a day and metolazone Patient also admitted that she is drinking lot of fluid throughout the day and night. There could be an element of polydipsia. I had accepted to admit patient to the medical and telemetry unit Holding her diuretics. Started her on normal saline at 50 an hour. Start patient on sodium chloride tablet and 1 dose of urea Requested to check serum and urine osmolality, TSH and cortisol level to rule out other possible etiologies for hyponatremia. Sodium level is up to 133. TSH is normal ruling out hypothyroidism. Serum and urine osmolality are pending. Cortisol level is 11 ruling out adrenal insufficiency 08/28, sodium level is up to 138. Discontinued IV fluid infusion on 08/10. Discontinued sodium chloride tablet Keep patient in euvolemic state. Discontinued fluid and water restriction. Resume diuretics at a lower dose. Started Lasix 40 mg twice a day Anemia, chronic and progressive. No clinical evidence of acute or massive blood loss at this time. Requested iron study which came back consistent with anemia of chronic disease or likely mixed etiology. Her iron saturation is less than 10. I requested a stool Hemoccult. This came back negative. Start the patient on PPI for GI bleed prophylaxis I started the patient on iron infusion. I will add Procrit when I do not storages repleted. Patient received 8 units of RBC transfusion Her anemia could be related to CKD and/or multiple myeloma or light chain gammopathy. Will arrange for patient to follow-up with hematology. Patient will likely require to have anemia workup to be done in the outpatient setting to be handled by PCP in collaboration with other needed outpatient providers. This may include but not limited to EGD, colonoscopy, referral to see hematology and other needed age-appropriate cancer screening. Recent admission with fluid overload. Last echocardiogram was done in January 2024 showed normal ejection fraction but possible diastolic heart failure. Repeat echocardiogram to assess cardiac function and determine the most appropriate diuretic dosage. Echocardiogram does not show any systolic dysfunctio. Positive for moderate tricuspid regurg. Positive for moderate pulmonary hypertension. Microscopic hematuria. Unknown etiology. Patient is on a Plavix but could be causing or contributing to her hematuria Requested urine culture rule out UTI. Urine culture is still pending Continue oral cephalosporin. Likely this will need to be investigated further. She may need to have cystoscopy and further urological imaging to rule out underlying malignancy. To be followed up by PCP in collaboration with the urology in the outpatient setting. We will arrange for patient to follow-up with Dr. Shafer DANICA/CKD. DANICA could have been caused by aggressive diuresis Requested renal ultrasound. This came back negative for obstructive uropathy but positive for renal cyst which may be causing her microscopic hematuria. Check postvoid residual CKD is multifactorial. Could be related to advanced age in the setting of progressive cardiovascular disease I noticed that the patient had light chain measurement. She was found to have elevated kappa chain with elevated ratio at 10.59. Requested serum electrophoresis to rule out degree of multiple myeloma or light chain gammopathy. This came back abnormal. May need to follow-up with hematology. We will arrange for patient to follow-up with Dr. Danielle Resume Lasix 40 mg twice a day. 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 Request patient to follow-up with hematology team. COPD, no exacerbation. Not sure if patient had PFT before. Unknown the etiology of her COPD. This will need to be followed up. PCP could handle this or in collaboration with the pulmonary. Hypertension and borderline bradycardia. TSH is normal. Hold Diovan due to borderline hypotension Discontinued nifedipine. Replace it with amlodipine. Continue to monitor condition. DVT prophylax Heparin subcu. Close monitoring of hemoglobin. Functional impairment. Patient was seen by PT OT and recommended short-term skilled care Patient will be discharged to skilled facility.
--- NOTE | 2025-08-28 10:30 | SWNOTE1 ---
SW sent PT/OT note and physician note from today to Aiyana at [facility].
[2025-08-28] MEDS: AMLODIPINE BESYLATE 5 MG TABLET 2.5 MG PO (12:08)
[2025-08-28] MEDS: FUROSEMIDE 40 MG TABLET PO ×2 (12:08→20:49)
--- NOTE | 2025-08-28 13:32 | SWNOTE1 ---
[facility] is able to accept. MAILE completed H[facility] online. SW stopped in and spoke with daughter. Pt sleeping in chair. SW advised that [facility] is able to accept and there is a chance of dc tomorrow. Daughter in agreement. SW advised that we do not have wheelchair transport over the weekend and that family can transport if pt is safe to go by private vehicle. Daughter in agreement. SW did let daughter know to bring her home oxygen so she can get from hospital to [facility]. Daughter in agreement. Daughter did voiced she feels pt is doing much better today, sleeping a lot, but better. SW did provide pt's daughter with follow up apts. One with Dr. Danielle and one with Dr. Shafer. Daughter asked who the physicians were. SW let her know oncologist and urologist. Daughter stated that she does see a oncologist/affirmative action specialist at [facility] and they did blood work 5 weeks ago and she has appointment the second week of September. SW to reach out to Dr. Donovan and case management to see if that apt should be moved up. Daughter in agreement with Urologist. She requested address and phone number for Urologist.
--- NOTE | 2025-08-28 13:47 | SWNOTE1 ---
Pt to keep already scheduled follow up with Dr. Valentin Myers MD at the [facility]. SW let daughter know. SW provided daugher with address and phone number for Dr. Fiore.
--- NOTE | 2025-08-28 13:48 | SWNOTE1 ---
Addendum entered by Aba Arias 08/28/25 13:52: When MAILE called [facility], no answer. MAILE called and left a message on Ya's ([employer]) phone to cancel appointment. Original Note: MAILE called down to the [facility] and cancelled apt.
--- NOTE | 2025-08-28 13:54 | SWNOTE1 ---
SW receveived call back from Ya and SW advised of cancellation of apt with Dr. Danielle.
[2025-08-29] VITALS (13 sets, daily range): BP systolic 124–188; BP diastolic 67–74; PULSE 54–82; TEMP 36.5–36.7; O2SAT 91–94
[2025-08-29] MEDS: TEMAZEPAM 15 MG CAPSULE PO (01:54)
[2025-08-29] MEDS: ALPRAZOLAM 0.25 MG TABLET PO ×2 (01:54→08:07)
[2025-08-29] MEDS: AMLODIPINE BESYLATE 5 MG TABLET PO ×2 (01:54→08:07)
[2025-08-29 06:50] LABS: Hematocrit 26.7 % (36.0-48.0); Hemoglobin 8.7 g/dL (12.0-16.0); Mean Corpuscular HGB Conc 32.6 g/dL (29.9-35.2); Mean Corpuscular Hemoglobin 28.6 pg (26.7-34.0); Mean Corpuscular Volume 87.8 fL (81.0-99.0); Platelet Count 290 10^3/uL (150-450); Red Blood Count 3.04 10^6/uL (4.20-5.40); White Blood Count 6.2 10^3/uL (4.0-11.0)
[2025-08-29 07:31] LABS: Alanine Aminotransferase 20 U/L (14-59); Albumin Globulin Ratio 0.9; Albumin Level 2.6 g/dL (3.4-5.0); Alkaline Phosphatase 43 U/L (46-116); Anion Gap 10.4; Aspartate Amino Transferase 18 U/L (15-37); Blood Urea Nitrogen 43.0 mg/dL (7.0-18.0); Calcium 8.4 mg/dL (8.5-10.1); Carbon Dioxide 29.2 mmol/L (21.0-32.0); Chloride 102 mmol/L (98-107); Estimated GFR (African America 44 (>=60 mL/min/1.73m^2); Estimated GFR (Non-African Ame 36 (>=60 mL/min/1.73m^2); Globulin 2.8 g/dL; Glucose 87 mg/dL (74-106); Potassium 4.6 mmol/L (3.5-5.1); Sodium 137 mmol/L (136-145); Total Protein 5.4 g/dL (6.4-8.2)
[2025-08-29] MEDS: HEPARIN SODIUM (PORCINE) 5,000 UNIT/ML VIAL 5000 UNIT SUBQ (08:06)
[2025-08-29] MEDS: CLOPIDOGREL BISULFATE 75 MG TABLET PO (08:07)
[2025-08-29] MEDS: SENNOSIDES/DOCUSATE SODIUM 1 TAB TABLET 2 TAB PO (08:07)
[2025-08-29] MEDS: PANTOPRAZOLE SODIUM 40 MG TABLET.DR PO (08:07)
[2025-08-29] MEDS: FUROSEMIDE 40 MG TABLET PO (08:07)
[2025-08-29] MEDS: ACETAMINOPHEN 325 MG TABLET 650 MG PO (08:07)
[2025-08-29] MEDS: GABAPENTIN 100 MG CAPSULE PO (08:07)
[2025-08-29] MEDS: IRON SUCROSE COMPLEX 100 MG in 0.9 % SODIUM CHLORIDE 100 ML 420 MG IV (08:08)
[2025-08-29] MEDS: 0.9 % SODIUM CHLORIDE 250 ML 10 ML IV (08:08)
[2025-08-29] MEDS: CEFUROXIME AXETIL 250 MG TABLET PO (08:08)
[2025-08-29] MEDS: ALBUTEROL SULFATE 2.5 MG/3 ML VIAL NEB IH (09:01)
[2025-08-29] MEDS: BUDESONIDE 0.5 MG/2 ML AMPULE NEB IH (09:01)
--- NOTE | 2025-08-29 09:31 | PM.DS1 ---
DS: Providers Provider Date of admission: 08/25/25 19:36 Primary care physician: Nathan Bateman DO Consults: 08/27/25 Occupational Therapy Eval and Treat Routine Reason for consultation: weakness Physical Therapy Eval and Treat Routine Reason for consultation: weakness Anticipated date of discharge: 08/29/25 DS: Diagnosis Discharge Diagnosis (1) Hyponatremia: (2) CKD (chronic kidney disease) stage 3, GFR 30-59 ml/min: (3) Bradycardia: (4) Hypothyroidism: (5) CKD stage 3a, GFR 45-59 ml/min: (6) Suspected sleep apnea: (7) Peripheral edema: DS: Summary Hospital Course Hospital Course: This is an 84-year-old woman who presented to the [facility] with hypovolemic hyponatremia. She had been discharged a week before on Lasix 80 mg twice daily and metolazone which likely was just too strong for her condition. The patient does have chronic kidney disease. With some gentle fluid rehydration and holding back a couple doses of Lasix her creatinine did return to its baseline. 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 During this hospital stay she did have anemia and was transfused with 2 units of packed red blood cells. Stool was negative for occult blood. There was evidence of microscopic hematuria. She will need outpatient urologic follow-up. She did receive a few doses of IV iron while she was here at [facility] until her peripheral IV infiltrated. There was evidence of a urinary tract infection that was treated with oral cephalosporins. At the end of the hospital stay she was found to be suitable for discharge to a senior care facility for strengthening. The specific recommendations for this patient were to have a 1500 mL fluid restriction, not restrict her sodium, have daily weights, and BMPs at least twice a week while she is at the senior care facility. If she begins having retention of fluid again then metolazone can be used if her weight goes up by 1 kg, but hopefully this only be needed about once every 3 or 4 days. Status at Discharge Functional status at discharge: uses cane/walker Overall status at discharge: patient is progressing back to baseline Time Spent with Patient Time attestation: Total time spent providing and/or coordinating discharge services: Time spent: greater than 30 minutes Specific discharge activities: 39 minutes of total discharge time. Exam Constitutional Vital Signs, click to edit/add: Last Vital Signs Temp 98.0 F 08/29/25 07:16 Pulse 60 08/29/25 08:00 Resp 18 08/29/25 07:16 BP 165/74 H 08/29/25 07:16 Pulse Ox 94 L 08/29/25 09:02 O2 Del Method Nasal Cannula 08/29/25 09:02 O2 Flow Rate 2 08/29/25 07:16 DS: Data Data Completed and Pending Labs on day of discharge: Labs from last 24 hours 08/29/25 05:48 WBC 6.2 RBC 3.04 L Hgb 8.7 L Hct 26.7 L MCV 87.8 MCH 28.6 MCHC 32.6 RDW 14.5 Plt Count 290 MPV 10.3 Sodium 137 Potassium 4.6 Chloride 102 Carbon Dioxide 29.2 Anion Gap 10.4 BUN 43.0 H Creatinine 1.40 H Est GFR ( Amer) 44 L Est GFR (Non-Af Amer) 36 L BUN/Creatinine Ratio 30.7 Glucose 87 Calcium 8.4 L Total Bilirubin 0.6 AST 18 ALT 20 Alkaline Phosphatase 43 L Total Protein 5.4 L Albumin 2.6 L Globulin 2.8 Albumin/Globulin Ratio 0.9 Discharge Plan Discharge Disposition: er [facility] Plan of Treatment: At SNF: 3 to 4 gram sodium diet. 1500 ml fluid restriction. Weigh patient every day. If weight goes up by more than 1 kg from baseline then give the patient a dose of Metolazone. Consult to dietitian Consult to Occupational Therapy Consult to Physical Therapy Provide Ensure or Boost drink, 1 container per day. This drink DOES NOT COUNT towards the 1500 ml oral fluid limit per day. BMP Q Sunday and . Pt needs outpatient: Polysomnogram Complete Pulmonary Function Test Discharge Medications: New acetaminophen [Tylenol] 325 mg Tablet 650 mg PO Q6H PRN (Reason: Pain or fever) Qty: 0 0RF cefuroxime axetil 250 mg Tablet 250 mg PO BID 4 Days Qty: 0 0RF amlodipine 5 mg Tablet 5 mg PO QD Qty: 0 0RF calcium carbonate 200 mg calcium (500 mg) Tablet,Chewable 500 mg PO TID PRN (Reason: Indigestion) Qty: 0 0RF furosemide 40 mg Tablet 40 mg PO BID Qty: 0 0RF polyethylene glycol 3350 17 gram Powder In Packet 17 g PO QD PRN (Reason: Constipation) Qty: 0 0RF sennosides-docusate sodium 8.6-50 mg Tablet 2 tab PO QD PRN (Reason: constipation) Qty: 0 0RF tramadol 50 mg Tablet 50 mg PO Q6H PRN (Reason: Pain) 6 Days Qty: 30 0RF Rx Instructions: This script is for ECF use only, to start, Further refills, if needed, are to come from ECF providers. Continued rosuvastatin 40 mg tablet 40 mg PO DAILY alprazolam 0.25 mg tablet 0.25 mg PO TID PRN (Reason: anxiety) 6 Days Qty: 18 0RF Rx Instructions: This script is ECF use only, to start. Further refills of this medication are to come from ECF providers. temazepam [Restoril] 15 mg capsule 15 mg PO .hs PRN (Reason: sleep) 6 Days Qty: 6 0RF Rx Instructions: This script is for ECF use only, to start. Further refills of this medication are to come from ECF providers. gabapentin 100 mg capsule 100 mg PO Q12H 6 Days Qty: 12 0RF Rx Instructions: This script is for ECF use only, to start. Further refills at ECF are to come from ECF providers. clopidogrel 75 mg tablet 75 mg PO DAILY valsartan 80 mg tablet 80 mg PO .QD pantoprazole 40 mg tablet,delayed release (DR/EC) 40 mg PO .QD umeclidinium-vilanterol [Anoro Ellipta] 62.5-25 mcg/actuation blister with device 1 inh INHALATION Q24H metolazone 5 mg tablet 5 mg PO DAILY PRN (Reason: leg swelling/weight gain) Qty: 30 0RF budesonide-formoterol [Symbicort] 160-4.5 mcg/actuation HFA aerosol inhaler 2 inh inhalation BID Qty: 10.2 0RF Discontinued nifedipine 90 mg tablet extended release 24hr 90 mg PO DAILY Qty: 30 0RF furosemide [Lasix] 80 mg tablet 80 mg PO BID Qty: 30 0RF Print Language: French Activity Restrictions/Additional Instructions: At [facility]: 3 to 4 gram sodium diet. 1500 ml fluid restriction. Weigh patient every day. If weight goes up by more than 1 kg from baseline then give the patient a dose of Metolazone. Consult to dietitian Consult to Occupational Therapy Consult to Physical Therapy Provide Ensure or Boost drink, 1 container per day. This drink DOES NOT COUNT towards the 1500 ml oral fluid limit per day. BMP Q Sunday and . Pt needs outpatient: Polysomnogram Complete Pulmonary Function Test Forms: Portal Instructions Follow Up Appointments: Dr. Shafer Sep 11 10:00 Keep already scheduled follow up with Dr. Valentin Myers MD at the [facility] Discharge Date/Time: 08/29/25 13:01 Discharge Location: [facility]
--- NOTE | 2025-08-29 10:59 | REH.PTDLY ---
Physical Therapy Daily Note PT Daily Note/Assess Start: 08/28/25 10:09 Freq: Status: Active Protocol: Document 08/29/25 10:52 BETO (Rec: 08/29/25 10:59 BETO [id number]) Physical Therapy Daily Note/Assessment Time In 10:30 Time Out 10:50 Subjective Pt and family in room. Pt upset about her night. Reports she didn't have a sleeping pill or anxiety med until 2 AM. Tired this morning. Declines pain sitting in chair. Therapeutic Exercise 7 Minutes (minutes) Therapeutic Exercise 0 Units Therapeutic Exercise Instructed in B LE seated exs 10x ea for improved Treatment strength for ease of transfers and gait. Pt performed AP, LAQ, marching, hip add, and hip abd. Pt reports soreness in Royce quad muscles with exs, L being more sore than R. Therapeutic Activity 13 Minutes (minutes) Therapeutic Activity 1 Units Therapeutic Activity Sit to stand transfers 3x in a row with cues for hand Comments placement on chair as pt wants to reach for RW. Gait training with RW and pt wearing 2L of O2 for 115 feet SBA/CGA. Cues during gait for proper stride length to avoid scuffing feet on floor. SpO2 post gait is at 94%. Pt in chair post rx with call light at hand and family in room. Total Therapy 20 Minutes Total Physical 1 Therapy Units Daily Note Summary Pt has improved gait distance this morning, requires verbal cues at times for improved stride length. Pt has soreness with exs when raymond quad muscles, but no pain at rest. Cues needed for safety when performing sit to stands from chair. Pt is going to be DC to SNF today to improve strength and mobility prior to returning home.
[2025-08-29] MEDS: BISACODYL 5 MG TABLET PO (11:02)
--- NOTE | 2025-08-29 11:30 | PC.NURSE ---
report given to vicente at the [facility], all questions answered
[2025-08-30 02:07] LABS: Osmolality, Urine 279 mOsmol/kg (.)
== END 2025-08-29 13:01 | DRG 641 ==
LOC: ER 19:03 → MS 19:43
PROVIDERS: Admitting Provider Internal Medicine; Emergency Provider Emergency Medicine; PCP Internal Medicine; Visit Provider Internal Medicine
DX: E87.1 Hypo-osmolality and hyponatremia (principal); N17.9 Acute kidney failure, unspecified; N39.0 Urinary tract infection, site not specified; I50.32 Chronic diastolic (congestive) heart failure; I13.0 Hypertensive heart and chronic kidney disease with heart failure and stage 1 through stage 4 chronic kidney disease, or unspecified chronic kidney disease; D64.9 Anemia, unspecified; R00.1 Bradycardia, unspecified; E03.9 Hypothyroidism, unspecified; N18.31 Chronic kidney disease, stage 3a; E87.5 Hyperkalemia; R31.29 Other microscopic hematuria; Z79.02 Long term (current) use of antithrombotics/antiplatelets; J44.9 Chronic obstructive pulmonary disease, unspecified; F41.9 Anxiety disorder, unspecified; Z79.899 Other long term (current) drug therapy; I27.20 Pulmonary hypertension, unspecified; I07.1 Rheumatic tricuspid insufficiency; N28.1 Cyst of kidney, acquired; R79.89 Other specified abnormal findings of blood chemistry; G47.30 Sleep apnea, unspecified; I25.10 Atherosclerotic heart disease of native coronary artery without angina pectoris; G62.9 Polyneuropathy, unspecified; K21.9 Gastro-esophageal reflux disease without esophagitis; Z87.891 Personal history of nicotine dependence; Z86.16 Personal history of COVID-19; Z87.01 Personal history of pneumonia (recurrent); Z90.710 Acquired absence of both cervix and uterus; Z95.5 Presence of coronary angioplasty implant and graft; D63.8 Anemia in other chronic diseases classified elsewhere; E66.9 Obesity, unspecified; Z68.35 Body mass index [BMI] 35.0-35.9, adult
CPT/HCPCS: 36415; 36430; 51798; 71045; 76775; 80048; 80053; 80076; 81001; 82533; 82607; 82728; 82746; 83540; 83550; 83735; 83880; 83930; 83935; 84100; 84155; 84165; 84443; 85014; 85018; 85025; 85027; 86850; 86900; 86901; 86923; 87086; 93005; 93306; 93356; 94640; 94761; 97162; 97165; 97530; 97535; 99285; G0328; J1644; J1756; J1938; P9016; Q0162

== ENCOUNTER 2025-09-19 13:21 | Emergency (ER) | payer MEDICARE, SELFPAY ==
--- OUTSIDE RECORDS SUMMARY | 2025-09-01 10:30 | XMS_ITS ---
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 Name Role Phone Nathan Bateman DO Primary Care Provider Unavaila Haylie Light [phone] REASON FOR VISIT New PT Hem Encounters Encounter Location Date Provider Diagnosis [facility] [address] [place] [address] 09/01/2025 Haylie Danielle Plan Of Treatment No Information Progress Notes * Maggie WHALEY MDOB: 2 (85 yo F)Acc No.[id number]:09/01/2025 UNLOCKED PROGRESS NOTE Progress Notes Patient: Maggie HASSAN :?Haylie Danielle M.D.:1940???Age:84 Y ???Sex:FemaleDate:09/01/2025Phone:[phone]:[address] [place], [place] [id number]:Nathan Bateman DO Subjective: * Chief Complaints: * 1 . MD New PT Hem. * Medical History: Objective: * Vitals: Assessment: Plan: * Treatment: * * Electronic signature of Haylie Danielle MD, [id number] on 09/19/2025 at 11:00 AM ESTSign off status: PendingVisit Status:?CANC (Cancelled) * Provider: [place] Danielle M.D. Date: 11/01/2024 Generated for Printing/Faxing/eTransmitting on:?09/19/2025 11:00 AM EST
[2025-09-19] VITALS (29 sets, daily range): BP systolic 114–176; BP diastolic 48–70; PULSE 82–91; TEMP 36.9; O2SAT 89–100; BMI 32.6
--- OUTSIDE RECORDS SUMMARY | 2025-09-19 08:03 | XMS_ITS | Continuity of Care Document ---
Author Organization [facility] Address [address] [place] [address] Phone Care Team Providers Care Dairy Farmer Name Role Phone Nathan Bateman DO Primary Care Provider Nathan Bateman DO Attending Provider Fanny Long APRN Attending Provider Valentin Myers MD Attending Provider Kaia Krishna HOME CARE MANAGER-C Attending Provider Cher Singh DO Attending Provider [phone] Agueda Fields MD Attending Provider Susana Cortes CMA Attending Provider Unavaila Seth Yang DO Attending Provider Mary Donovan MD Attending Provider Kelly Pickard APRN Attending Provider Care Teams Patient Care Team Team Status: Active Member Role/Relationship Status Dates Nathan Bateman DO Primary Care Provider Active Visit Care Team Team Status: Active Member Role/Relationship Status Dates Nathan Bateman DO Primary Care Provider Active Start: June 23, 2025 Nathan Bateman DOAttending ProviderActiveStart: June 23, 2025 Visit Care Team Team Status: Active Member Role/Relationship Status Dates Nathan Bateman DO Primary Care Provider Active Start: June 24, 2025 Nathan Bateman , DOAttending ProviderActiveStart: June 24, 2025 Visit Care Team Team Status: Active Member Role/Relationship Status Dates Nathan Bateman DO Primary Care Provider Active Start: July 08, 2025 Fanny Long APRN HOME CARE MANAGER-CAttending ProviderActiveStart: July 08, 2025 Visit Care Team [...] 04, 2025 End: August 04, 2025Kaia Krishna HOME CARE MANAGER-CAttending ProviderActiveStart: August 04, 2025 End: August 04, 2025 Visit Care Team Team Status: Active Member Role/Relationship Status Dates Nathan Bateman DO Primary Care Provider Active Start: August 10, 2025 Cher Singh , DOAttending ProviderActiveStart: August 10, 2025 Visit Care Team Team Status: Active Member Role/Relationship Status Dates Nathan Bateman DO Primary Care Provider Active Start: August 11, 2025 Agueda Fields MDAttending ProviderActiveStart: August 11, 2025 Visit Care [...] Care Provider Active Start: August 15, 2025 Agueda Fields , MDAttending ProviderActiveStart: August 15, 2025 Visit Care Team Team Status: Active Member Role/Relationship Status Dates Nathan Bateman DO Primary Care Provider Active Start: August 16, 2025 Agueda Fields MDAttending ProviderActiveStart: August 16, 2025 Visit Care Team Team Status: Active Member Role/Relationship Status Dates Nathan Bateman DO Primary Care Provider Active Start: August 17, 2025 Susana Cortes CMAAttending ProviderActiveStart: August 17, 2025 Visit Care Team Team Status: Inactive Member Role/Relationship Status Dates Nathan Bateman DO Primary Care Provider Active Start: August 19, 2025 End: August 19, 2025Kaia Krishna NP-CAttending ProviderActiveStart: August 19, 2025 End: August 19, 2025 Visit Care Team Team Status: Inactive Member Role/Relationship Status Dates Nathan Bateman DO Primary Care Provider Active Start: August 21, 2025 End: August 21rob Bateman DOAttending ProviderActiveStart: August 21, 2025 End: August 21, 2025 Visit Care Team Team Status: Active Member Role/Relationship Status Dates Nathan Bateman DO Primary Care Provider Active Start: August 25, 2025 Nathan Bateman DOAttending ProviderActiveStart: August 25, 2025 Visit Care Team Team Status: Active Member Role/Relationship Status Dates Nathan Bateman DO Primary Care Provider Active Start: August 26, 2025 Mary Donovan MDAttending ProviderActiveStart: August 26, 2025 Visit Care Team Team Status: Active Member Role/Relationship Status Dates Nathan Bateman DO Primary Care Provider Active Start: August 27, 2025 Mary Donovan MDAttending ProviderActiveStart: August 27, 2025 Visit Care Team Team Status: Active Member Role/Relationship Status Dates Nathan Bateman DO Primary Care Provider Active Start: August 28, 2025 Mary Donovan MDAttending ProviderActiveStart: August 28, 2025 Visit Care Team Team Status: Active Member Role/Relationship Status Dates Nathan Bateman DO Primary Care Provider Active Start: August 29, 2025 Mary Donovan MDAttending ProviderActiveStart: August 29, 2025 Visit Care Team Team Status: Active Member Role/Relationship Status Dates Nathan Bateman DO Primary Care Provider Active Start: September 03, 2025 Nathan Zaida Bateman ProviderActiveStart: September 03, 2025 Visit Care Team Team Status: Active Member Role/Relationship Status Dates Nathan Bateman DO Primary Care Provider Active Start: September 10, 2025 Zaida Prado ProviderActiveStart: September 10, 2025 Visit Care Team Team Status: Inactive Member Role/Relationship Status Dates Nathan Bateman DO Primary Care Provider Active Start: September 16, 2025 End: September 16Zaida Ragsdale ProviderActiveStart: September 16, 2025 End: September 16, 2025 Visit Care Team Team Status: Inactive Member Role/Relationship Status Dates Nathan Bateman DO Primary Care Provider Active Start: September 19, 2025 End: September 19mandCosme Quinteros ProviderActiveStart: September 19, 2025 End: September 19, 2025 Visit Care Team Team Status: Active Member Role/Relationship Status Dates Nathan Bateman DO Primary Care Provider Active Start: September 19, 2025 Kelly Cosme Srinivasan ProviderActiveStart: September 19, 2025 Chief Complaint and Reason for Visit Chief Complaint Admit Date leg swelling/sores July 21, 2025 3:32pm VENOUS INSUFFICIENCY W ULCERS, EDEMA Oct [place] 2024 10:24am Amb Documentation August 11, 2025 1 :26pm Amb Documentation August 17, 2025 9 :42am I87.2 G25.81 R60.0 O85046 I83.893 Octobe r 2024 7:55am [facility] f/u-HIGH RISK August 21 11:39am Fdc Visit September 03, 2025 1 1:59pm Fdc Visit September 10, 2025 11:59pm 3 month f/u September 16, 2025 9:52am Fever, cough September 19, 2025 10:58am Reason for Visit Admit Date ASHD (arteriosclerotic heart disease) Se ptember 2024 [...] pigmentation of skin August 04, 2025 10:24am Skin tenderness August 04, 2025 10 :24am Symptomatic varicose veins of both lower extremities August 04, 2025 10:24am Anemia August 21, 2025 1 1:39am ASHD (arteriosclerotic heart disease) Oc tober 2024 11:39am Chronic bronchitis August 21, 2025 1 1:39am Chronic kidney disease August 21 11:39am Chronic venous insufficiency July 11:39am Essential hypertension August 21 11:39am Hypercholesterolemia August 21, 2025 11:39am 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) August 21, 2025 11:39am Acute respiratory failure with hypoxemia August 21, 2025 11:39am Requires continuous at home supplemental oxygen August 21, 2025 11:39am Acute on chronic heart failu re with preserved ejection fraction (HFpEF) August 21, 2025 11:39am Anemia September 16, 2025 9:52am ASHD (arteriosclerotic heart disease) No vember 2024 9:52am Chronic bronchitis September 16, 2025 9:52am Chronic kidney disease September 16 9:52am Chronic venous insufficiency September 162024 9:52am Elevated serum immunoglobulin free light chain level September 16, 2025 9:52am Essential hypertension September 16 9:52am Hypercholesterolemia September 16, 2025 9:52am Hyponatremia September 16, 2025 9:52am 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) September 16, 2025 9:52am Acute on chronic heart failu re with preserved ejection fraction (HFpEF) September 16, 2025 9:52am Allergies, Adverse Reactions, Alerts Allergen Type Severity Reaction Last Updated Verified Status Comments amlodipine Allergy Unknown Unknown Reaction September 16, 2025 9:58am Yes Active amoxicillinAllergyUnknownUnknown ReactionNovember 2024 9:58amYesActive azithromycinAllergyUnknownrashNovember 2024 9:58amYesActivecodeineAllergy UnknownUnknown ReactionNovtuc[facility] 2024 9:58amYesActivedoxycyclineAllergy UnknownUnknown ReactionKing'[facility] 2024 9:58amYesActiveduloxetineAllergy UnknownUnknown ReactionKing'S D[facility] 2024 9:58amYesActiveguaifenesinAllergy UnknownUnknown ReactionKing'S [facility] 2024 9:58amYesActivelevofloxacinAllergy UnknownUnknown ReactionKing'[facility] 2024 9:58amYesActiveondansetronAllergy UnknownUnknown ReactionKing'S [facility] 2024 9:58amYesActiveOnset Date: 10/29/2019 sulfamethoxazoleAllergyUnknownUnknown ReactionKing'[facility] 2024 9:58amYes Activetetanus and diphtheria toxoidsAllergyUnknownUnknown ReactionKing'S [facility] 2024 9:58amYesActivePenicillinsAllergyUnknownRashKing'S Daughters Medical Center 2024 9:58amYes Dlwaqt87 Hour DecongestantAllergyUnknownUnknown ReactionApril 2023 9:52amNo ActiveOnset Date: 10/29/2019Cheratussin AC *COUGH/COLD/ALLAllergyUnknownUnknown ReactionApril 2023 9:52amNoActiveFree Text Allergy: Cheratussin AC *COUGH/COLD/ALLERGY*; Onset Date: 10/29/2019 Social History Smoking Status Status Start Date End Date Date of Observa tion Never smoked tobacco (finding) February 12, 2025 6:48am Observation Status Observation Response Date of Response Legal Sex Female (finding) [facility] 1939 Family History Relationship Condition Age at Onset Recorded Date/T jerzy brother Type 2 diabetes mellitus Unknown Heart diseaseUnknownfatherMyocardial infarctionUnknownHeart diseaseUnknownmother History of implantable cardioverter-defibrillator (ICD) insertionUnknownHeart diseaseUnknownbrotherMalignant neoplasm of kidneyUnknownsisterMultiple sclerosis UnknownLeukemiaUnknownbrotherMalignant neoplasm of lungUnknownExposure to Agent OrangeUnknownbrotherMalignant neoplasm of colonUnknownbrotherMalignant neoplasm of urinary bladderUnknownbrotherMalignant neoplasm of lungUnknownbrother Malignant neoplasmUnknownfatherDeceasedUnknownmotherDeceasedUnknown Problems Active Problems Problem Diagnosis/Recorded Date Onset Date Status C omments Chronic heart failure with preserved ejection fraction (HFpEF) September 09, 2024 9:33pm Unknown Active - LH C w/ PCI/stent LAD, RCA (Feb, 2023)- Echo w/ LVEF 60%, ELY, normal RV size/function, RVSP 41 - 01/2024,Echo: LVEF 60-65%, normal RV size/function, mild-mod MR - 02/2025,Echo: LVEF75%, ELY, normal RV size/function, RVSP 56, mod TR Cervical spondylosis with radiculopathy January 31, 2024 9:31am Unknown Active Gastroesophageal reflux disease with esophagitis without hemorrhageApril 2023 9:31amUnknownActivePrimary insomniaAugust 2023 1:14pmUnknownActiveGAD (generalized anxiety disorder)January 31, 2024 9:31amUnknownActiveNocturnal leg crampsMarch 2024 10:22amUnknownActiveScreening mammogram for breast cancer June 16, 2025 6:25amUnknownActiveMenopauseApril 2023 9:31amUnknown ActiveThyroid noduleNovember 2023 3:38pmUnknownActiveUS: right 16mm TR4, left 5-7mm TR4 - 08/2024,FNA: right nodule - 11/17/24,US: no change - 01/2025 Subclinical hypothyroidismMay 2023 10:01amUnknownActiveElevated serum immunoglobulin free light chain levelApril 2023 9:31amUnknownActiveFever September 19, 2025 12:07pmUnknownActiveShortness of breathNovember 2024 12:07pmUnknownActiveAnemiaApril 2023 9:31amUnknownActiveAdrenal noduleApril 4th, 2024 9:31amUnknownActiveHypercholesterolemiaNovember 2023 9:37pm UnknownActiveHyponatremiaNovember 2024 6:39pmUnknownActiveChronic kidney diseaseFebruary 2024 8:47pmUnknownActiveCT: 5.9cm right renal cyst - 07/2022US: 5.1cm right renal cyst - 07/2025Restless leg syndromeApril 2023 9:31amUnknownActiveEssential hypertensionApril 2023 9:31amUnknownActiveMGUS (monoclonal gammopathy of unknown significance)January 31, 2024 9:31amUnknown ActiveIrritable bowel syndrome with diarrheaApril 2023 9:31amUnknownActive Chronic venous insufficiencyApril 2023 9:31amUnknownActiveChronic bronchitisNovember 2023 9:38pmUnknownActiveObesityMay 2024 6:52pm UnknownActiveASHD (arteriosclerotic heart disease)January 31, 2024 9:31amUnknown ActiveLHC w/ PCI/stent LAD, RCA (Feb, 2023),Echo: LVEF 75%, LAE, normal RV size/function, RVSP 56 - 07/2025Inactive/Resolved Problems Problem Diagnosis/Recorded Date Onset Date Status C omments Hypertensive emergency Jessica 2022 2:50pm Unknown R esolved Problem List clean-up per request of Phys. EHR Cmte Tendinitis, de Quervain's January 31, 2024 9:31am Unknown Resolved Heart palpitationsApril 2024 9:32amUnknownResolvedHeart failureJuly 2022 3:20pmUnknownResolvedProblem List clean-up per request of Phys. EHR Cmte HyperlipidemiaMay 2022 9:00amUnknownResolvedProblem List clean-up per request of Phys. EHR CmteFlash pulmonary edemaJuly 2022 2:50pmUnknown ResolvedProblem List clean-up per request of Phys. EHR CmteAbnormal cardiovascular stress testMay 2022 10:34amUnknownResolvedProblem List clean-up per request of Phys. EHR CmteHypoxiaJuly 2022 3:20pmUnknown ResolvedProblem List clean-up per request of Phys. EHR CmteHypertensionMay 2022 9:00amUnknownResolvedProblem List clean-up per request of Phys. [facility] ASHD (arteriosclerotic heart disease)March 09, 2023 10:34amUnknownResolved Problem List clean-up per request of Phys. EHR Cmte Medications Medication Status Dose Units Route Directions Qty Days Refills S tart Date Stop Date End Date Reason(s) Instructions Adherence Rosuvastatin 40 mg tablet Discontinued 40 MG PO Daily 90 90 3 February 01, 2024 11:00pm February 06, 2024 11:11amRosuvastatin 40 mg euvviuFaclopwghtbe90GKSZDueie96488 February 06, 2024 11:11amApril 2023 11:12amRosuvastatin 40 mg tablet Adobqlafkvxt45SOIYBbytg24112Cswlz 2023 11:11amJanuary 2024 7:24am Carvedilol 3.125 mg tabletDiscontinued0.ROUTE.XCJFVQF5548Zoppp 2023 6:04am February 26, 2024 9:53amTAKE 1 TABLET BY MOUTH TWICE DAILY WITH FOODSacubitril- Valsartan (Entresto) 24-26 mg vphdxhRaaifkvttmyv3OMJIHRtrsr kugpv437512Vrb 22nd, 2024 1:53pmDecember 2023 12:42pmNifedipine 30 mg tablet extended release 43uzEyzyajqokysi89SJFONtywd204076Dcx 2023 1:54pmFebruary 2024 11:38amTemazepam 15 mg estyqwzDpssblltlrti63WYIBNzeud at rypilwt52881Fiqvux 2023 1:13pmNovember 2023 10:19pmPrimary insomnia Primary insomniaClopidogrel 75 mg ixuvknXeluqaldcyvd03KYQOYjxvh25615Ixtbsz 2023 10:42amSeptember 2024 6:34amGabapentin 100 mg capsuleDiscontinued0 .ROUTE.IFADPZD8654Fnyvwld th, 2024 8:28amSeptember 2024 6:34amTAKE 1 CAPSULE BY MOUTH TWICE DAILYTemazepam 15 mg hqdhknfEjfyxhzutwkv69UHCICrzes at tdbnqmm26056Vecliabm2023 10:18pmApril 2024 9:20pmPrimary insomnia Primary insomniaAlprazolam 0.25 mg tabletDiscontinued0.25MGPOTwice daily as needed for bmavpfc112304Dptotjba2023 2:19pmApril 2024 9:20pm Generalized anxiety disorder Generalized anxiety disorderFurosemide 20 mg tabletDiscontinued0.ROUTE.COMPLEX 1803December 2023 12:59pmFebruary 2024 4:28pmTAKE 1 TABLET BY MOUTH 1 TO 2 TIMES DAILY NEEDEDValsartan 80 mg ngqopqXjhqpalbkhky71CPITUnmuq91861 October 08, 2024 12:00amAugust 2024 2:16pmRosuvastatin 40 mg tablet Active0.ROUTE.BQJMPTQ949Kzqhnjx2024 7:24amTAKE 1 TABLET BY MOUTH DAILY UnknownPantoprazole 40 mg tablet,delayed release (DR/EC)Active0.ROUTE.FIXTSHL831 November 18, 2024 7:28amTAKE 1 TABLET BY MOUTH DAILY ON AN EMPTY STOMACH FOLLOWED IN 1/2 HOUR BY BREAKFASTUnknownFluticasone Propion-Salmeterol (Advair Hfa) 115-21 mcg/actuation HFA aerosol cdbxsgqLdhykggskjsr0WUBYPXJDADINIAKdcfq 12 tazxm501149Fljerhz 2024 9:19amApril 2024 5:38amOn Hold: None Albuterol Sulfate 90 mcg/actuation HFA aerosol stvwykcQcemcklrtean5FWXD INHALATIONEvery 6 hours as needed for shortness of breath or wheezing8.55January 2024 9:19amOctober 2024 10:51amFurosemide 20 mg cepgopHhlmevkgtxyk24 MGPO.LKHMUPG6965Vprtfcpf 2024 4:26pmFebruary 2024 1:17pm20 mg orally BID on Sunday, Sunday, , Sunday; daily on Sunday, Sunday, SundayFurosemide 20 mg exsruoYavvheuiogtk41TCOAZjbzk xhcdf5424Koytjave 2024 1:16pmApril 2024 6:05amBudesonide-Formoterol 160-4.5 mcg/actuation HFA aerosol oyvlsirOmdyzirukohr1DYGMWLNFOZKULGMlpyc 12 hours10.2302March 2024 12:00amMarch 2024 1:01pmBudesonide-Formoterol 160-4.5 mcg/actuation HFA aerosol efpixerQyhneqjtechc8IZSLFLIHDCNQSODdjgg 12 hours30.6900March 2024 12:00amMarch 2024 9:26amBudesonide-Formoterol 160-4.5 mcg/actuation HFA aerosol mwldtwoQozrazubxzjv3ECMHDMFICXVSMFFtkov 12 hours30.6900March 2024 9:25amApril 2024 6:33pmAlprazolam 0.25 mg tabletDiscontinued0.25MGPOTwice oqljx359928Btwun 2024 9:19pmApril 2024 6:05amGeneralized anxiety disorder Generalized anxiety disorderTemazepam 15 mg mfpcvrpRlgzixchsmaf90TMNUSjian at jxrlsnw04122Aqrkk 2024 9:20pmNovember 2024 1:17pmPrimary insomnia Primary insomniaUmeclidinium-Vilanterol (Anoro Ellipta) 62.5-25 mcg/actuation blister with dwsfoqZrcvtwatshis2SKOWKELILMOBXDajox77990Jfbeh 2024 11:00pm March 13, 2025 12:20pmNystatin 100,000 unit/mL myaoqwlpeiPjcgxdxgrzeu1INJABvaq times bismg24097Kbord 2024 11:00pmMay 2024 10:47amswish for 30 seconds and swallowUmeclidinium-Vilanterol (Anoro Ellipta) 62.5-25 mcg/actuation blister with gblhaaKttlaocshuxc1MAQADYVTQSALOOqeho71960Qio 2024 8:43amMay 2024 12:43pmUmeclidinium-Vilanterol (Anoro Ellipta) 62.5-25 mcg/actuation blister with gilvbtVaeisdjqpquz9GEYXCPHMQNBBEJgple657559Vptw 2024 10:55am May 19, 2025 3:04pmBumetanide 0.5 mg tabletDiscontinued0.5MGPOTwice hteiw0709 0Sept2024 11:14amSept2024 5:18pmBumetanide 1 mg tablet Kqkwnrewucsy0IYCCXmxdt dngvn05017Nrfafsjka 8th, 2025 5:16pmOctober 2024 7:00pmClopidogrel 75 mg tabletActive0.ROUTE.WYCQUNU785Wiekqbnps 9th, 2025 6:34am TAKE 1 TABLET BY MOUTH DAILYUnknownGabapentin 100 mg capsuleActive0.ROUTE .VACQQUP0300Ghsaxqmql 9th, 2025 6:34amTAKE 1 CAPSULE BY MOUTH TWICE DAILYUnknown Nifedipine 60 mg tablet extended release 53zsHaquwweuccxx70RJCYYxmoc98459Rddkosc 14th, 2025 6:57pmOctober 2024 10:51amFurosemide 40 mg osrpktIzfrocruqbzy75 MGPOTwice myymq151Icvsuac 13th, 2025 11:00pmOctober 2024 10:51amAlprazolam 0.25 mg tabletActive0.25MGPOTwice ralyr33417Xeynfhfi 9th, 2025 7:52amChronic kidney disease Chronic kidney disease, stage 3b anxietyUnknownTemazepam 15 mg dwdjyhkLgligr29SOMZVdgtq at cunpvnv83037Fatgiewx 11th, 2025 1:16pmPrimary insomnia Primary insomniaUnknownFurosemide 40 mg vbqllnUvehcc45YEQDKsvmh dailyNov2024 3:16pmUnknownTiotropium Lorraine (Spiriva Respimat) 2.5 mcg/actuation tbmnToxzpb1SBEBWPVZOEJWFTdsyh zbweero3896Ebhicjwb2024 12:00amUnknown Mupirocin 2 % mbsahokbUrrqcetspale1WYHDZSONVPAFSKpojw zmhno86358Gzgshyel2024 12:00amNovember 2024 10:11amNifedipine 90 mg tablet extended release 62rbRxswaa62ZXVLAwhpe189Fapxmnii 2024 3:23pmUnknownBudesonide-Formoterol (Symbicort) 160-4.5 mcg/actuation HFA aerosol tlookuvXoqaglnyidmu1QENIWBLQIROMHX Twice daily10.23Nov2024 3:37pmNovember 2024 6:06pmBudesonide- Formoterol (Symbicort) 160-4.5 mcg/actuation HFA aerosol frwsjtwMgulxo0RSCH INHALATIONTwice daily30.6903Nov2024 6:06pmUnknownMultivitamin Tablet Kdqvhagwqsgi5NZKEOAfktkAxc 2022 11:00pmJuly 2022 9:50amPravastatin 40 mg zbogreMofkclbnlcow23ACKNKjwbm eveningMay 2022 11:00pmApril 2023 11:10amNitroglycerin 0.2 mg/hr patch 24 hourDiscontinued0.2MGTRANSDERMLDailyMay 2022 11:00pmJuly 2022 9:50amPotassium Chloride 10 mEq tablet extended woyupsjRglqzjlmeocz42GBYGQGPDSS 3 WEEKSMa2022 11:00pmJune 2023 12:22pm3 times a week on even daysAspirin 81 mg Tablet,Delayed Release (Dr/Ec)Dccsufxablwo18RATBIikxq morningMay 2022 11:00pmMa2023 9:01am Carvedilol 3.125 mg tabletDiscontinued3.125MGPOTwice dailyMay 2022 11:00pm May 18, 2023 10:39amAlprazolam 0.25 mg tabletDiscontinued0.25MGPOThree times daily as needed for AnxietyMa2022 11:00pmApril 2023 9:39amTemazepam 15 mg ecksvpfFvnjcyqayzhx26ZGKPMhtud at bedtimeMay 2022 11:00pmAugust 2023 1:15pmAscorbic Acid (Vitamin C) (Vitamin C) 500 mg TabletDiscontinued 500MGPODailyMay 2022 11:00pmJuly 2022 9:50amRopinirole 0.25 mg tabletDiscontinued0.25MGPODaily at bedtime as needed for restless legsy 2022 11:00pmJuly 2022 9:51amPantoprazole 40 mg tablet,delayed release (DR/EC)Ffokpdtahdic80LBIIBrtge morningMay 2022 11:00pmJanuary 2024 7:28amFurosemide 20 mg cawamlFgdrbpfosxof92FRVSabuad other dayMa2022 11:00pmJuly 2022 10:39amon even days 3 times a weekGabapentin 100 mg hozdfafMtiityhstcuf072NDSNTgxsb dailyMarch 07, 2023 11:00pmOctober 2023 8:28ammay take tid if neededIrbesartan 150 mg krtgozUlqpivibzccp600MDAKNonyc morningMarch 07, 2023 11:00pmMay 2023 9:37amCalcium Carbonate-Vitamin D3 (Calcium 600 + D(3)) 600 mg-10 mcg (400 unit) DdpmeeOmfvkcaindye5TVEFHOtoieGqk 2022 11:00pmJuly 2022 9:50amPsyllium Husk (Metamucil) 0.4 gram CapsuleDiscontinued0.4GMPODaily as needed for ConstipationMarch 07, 2023 11:00pm May 17, 2023 9:50amTicagrelor (Brilinta) 90 mg ejplfvRfiozdvogcsd84IENYAovou wdpne9736Wkn 11th, 2023 11:00pmJuly 2022 1:07pmAlprazolam 0.25 mg tablet Discontinued0.25MGPO.q8hrs as needed for AnxietyApril 2023 9:33amNovember 2023 2:20pmAspirin 81 mg tablet,delayed release (DR/EC)Iwgbpaqwakvx45XPCT Every morningy 2023 9:00amFebruary 2024 10:47amblood thinnerevery Sun, Sun, and FriClopidogrel 75 mg fldhctAqaxntkpgusq41FPRRSecvoGyns 2022 11:00pmAugust 2023 10:42amFluticasone Propion-Salmeterol (Advair Hfa) 115- 21 mcg/actuation HFA aerosol qbfrdfnQquycncmfvuh2ZYEXMOHFDOKKKXMdguf dailyJuly 2022 11:00pmJanuary 2024 9:19amCarvedilol 3.125 mg tablet Enlfwzvpipws31.5MGPOTwice ccaqo887Divk 2022 10:38amJuly 2022 1:48pm Please do not take if you are feeling lightheaded or have a blood pressure less than 120 systolic at homeFurosemide 20 mg lmosilPxawjqtpekmx37QWUMoqupc other hda629Fpmc 2022 10:38amDecember 2023 1:00pmon even days 3 times a week. Goal weight is 195lbs, if you notice your weight trending up please take an extra dose as instructed by your PCPCarvedilol (Coreg) 12.5 mg tablet Yekfjbrcrsmf63.5MGPOTwice gxhoj047Lfir 2022 11:00pmApril 2023 9:34am must administer with a meal/foodPotassium Chloride 10 mEq tablet extended gwjtjnrQnnazqvpafri40TDLJPAlphvZjfkh 2024 11:00pmOctober 2024 10:51amAspirin 81 mg wzjwewkIeqzkvvgnjhm05RMFIJbecrQtwqk 2024 11:00pmMay 2024 10:46amAlprazolam 0.25 mg tabletDiscontinued0.25MGPOTwice daily as needed for anxietyApril 2024 11:00pmOctober 2024 11:35amFurosemide 20 mg ylrpdjSfnrsqdhstic05WKAOJbfznIcnml 2024 11:00pmAugust 2024 9:05amAlbuterol Sulfate 90 mcg/actuation HFA aerosol vpajqdwMkkkcywxlonh3THEY INHALATIONEvery 6 hours as needed for shortness of breath or wheezingApril 2023 11:00pmJanuary 2024 9:19amCarvedilol 3.125 mg tabletDiscontinued3.125 MGPOTwice dailyApril 2023 11:00pmApril 2023 6:04amLosartan 50 mg yqzdtwBpdximmckxul58IMHFHtqai dailyApril 2023 11:00pmApril 2023 9:53amTriamcinolone Acetonide 0.1 % agkrfCkhpknjyyifj0PJQPOQTRHQAXPieiu 2023 11:00pmApril 2024 5:39am1 application do not rinse afterwards and avoid eating or drinking for 30 minutes Mouth/Throat Twice a dayTriamcinolone Acetonide 0.5 % sgiswSbdfcmgyusqd0DODNGSBKRXCMKDnfbc dailyApril 2023 11:00pmApril 2024 5:39amRopinirole 0.25 mg tabletDiscontinued0.25MGPODaily December 18, 2023 12:00amFebruary 2023 9:32amRopinirole 0.25 mg tablet Discontinued0.28SVIWQvkow54262Nzxcvuro 2023 9:31amMay 2023 9:38am Nifedipine 30 mg tablet extended release 79plZfgikwfrxued06TCTMVkqiu75142 December 16, 2024 11:37amOctober 2024 6:57pmBumetanide 0.5 mg tablet Discontinued0.5MGPOTwice znaii97713Tuxruc 2024 11:00pmSeptember 2024 11:14amValsartan 80 mg wlnsezQgvaqm80TQQSTpohl89750Ikxqfq 2024 2:16pm UnknownUmeclidinium-Vilanterol (Anoro Ellipta) 62.5-25 mcg/actuation blister with unpkbpRmupgwapwngh1GOULHIIXAURIFJrtba721781Buza 2024 2:59pmNovember 2024 3:18pmCefdinir 300 mg tczljrrQydlsgshqlbr917XZJGTtckm gdyun1248Rnmn 2024 11:00pmAugust 2024 8:32amCefdinir 300 mg flddoskNiczcsjmlgcz756 MGPOTwice ubvie6114Apjrf 2023 11:00pmApril 2023 9:49amRight otitis media Dysfunction of eustachian tube Otitis media, unspecified, right ear Unspecified Eustachian tube disorder, unspecified earSacubitril-Valsartan (Entresto) 24-26 mg xmesoaIhtpyoowveuq0KBCCXLbrrl dailyApril 2023 11:00pm March 19, 2024 1:54pmNifedipine 30 mg tablet extended release 21vpNcuaiswjprbn76 MGPODailyApril 2023 11:00pmMay 2023 1:54pmLevothyroxine 75 mcg oyeiyaOtfkopygyaon68OLWNQCrmpfMplfo 2023 11:00pmNovember 2023 9:40am Umeclidinium-Vilanterol (Anoro Ellipta) 62.5-25 mcg/actuation blister with bojulxPseigehwvaxi6YJVXAKDGBBVFNZzuye81396Sff 2024 10:37amMay 2024 10:46amUmeclidinium-Vilanterol (Anoro Ellipta) 62.5-25 mcg/actuation blister with lurpsgBbcexvfuegfh2MIETSACVNIWCJNdjwk534480Rhi 2024 10:38amJuly 2024 10:55amMetolazone 5 mg zvofyzOfztpx9MAVKTyowm as neededNovember 2024 12:00amUnknownFurosemide 40 mg nycounNquhuuxgnxfk96TYESExwxr dailyOctober 2024 10:47amNovember 2024 3:20pmMetolazone 5 mg gzebqkAcfvsszqhfsc3KCMX Daily as neededOctober 2024 11:00pmNovember 2024 3:16pmBudesonide- Formoterol (Symbicort) 160-4.5 mcg/actuation HFA aerosol inhalerDiscontinued2 PUFFINHALATIONTwice dailyOctober 2024 11:00pmNovember 2024 3:37pm Nifedipine 60 mg tablet extended release 44lhRfowxzdzndxb37CQZFMtyskSkbxikl 2024 10:49amNovember 2024 3:24pmAlprazolam 0.25 mg tablet Discontinued0.25MGPOThree times daily as needed for yccmiyq911445Qnolegr 2024 11:32amNovember 2024 7:54amChronic kidney disease Chronic kidney disease, stage 3bFurosemide 20 mg tabletActiveMGPONovebanner ironwood [facility] 2024 12:00amUnknown Immunizations Immunization Event Date Not Given Reason Dose Number Sap Basis 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 Lot Number Reason(s) Given Vaccine Information Statement (VIS) Detail Administration Location [facility], Pediatric Age 5-11 September 152021 COVID-19 mRNA-1273 (Moderna)November 27OVID mRNA, Comirnaty ([employer]) November 27OVID mRNA, Comirnaty ([employer])December 18OVID mRNA, Comirnaty ([employer])July 30OVID mRNA, Comirnaty ([employer])January 28OVI Comirnaty ([employer]) Tri-Sucrose +January 28OVI mRNA Bivalent Booster ([employer])September 15, 2022Fluzone TIV High-Dose 65YR+July 16, 2024UT8437BAFPG [facility], unspecified formulation August 17, 2015influenza, unspecified formulationSeptember [...] arterial pvr rest LE August 19, 2025 6:58a m completed US venous duplex LE BI August 19, 2025 6:58am completed XR chest 2V* September 19, 2025 12:00am comp leted Relevant Diagnostic Tests and/or Laboratory Data Laboratory Results Test Collection Date/Time Result Date/Time Result Interpretation Reference Range Result Comment Performing Site Immunoglobulin G June 23, 2025 6:25am June 23, 2025 6:25am 330 mg/dL Abnormal (applies to non-numeric results) [id number] Vitamin B12 LevelAugallup [facility]2024 6:252024 6:57um9429 pg/mL 232-1245Performed at: [facility] [id number] Director: Carlos Witt PhD, Phone: [phone] Thyroxine June 23, 2025 6:252024 6:25am0.97 ng/dL0.76-1.46FolateAu2024 6:252024 6:25am17.90 ng/mL8.60-58.90FerritinAugu2024 6:252024 6:26uv585.0 ng/mL8.0-252.0Iron Saturation June 23, 2025 6:252024 6:25am14.3 %Thyroid Stimulating Hormone 3rd GenAugus2024 6:252024 6:25am5.101 u[iU]/mL Above high normal0.358-3.740Cholesterol/HDL RatioAu2024 6:252024 6:25am2.73.3 - 4.4 LOW RISK4.4 - 7.1 AVERAGE RISK7.1 - 11.0 MODERATE RISK>11.0 HIGH RISKAnion GapAugust 2024 6:25amAugu2024 6:25am12.1 Basophils # (Auto)June 23, 2025 6:25amA2024 6:25am0.0 10 3/uL 0.0-0.1Urine Random CreatinineAugust 2024 8:00amA2024 8:00am 84.52 mg/dL20.00-300.00Immunofixation InterpretationSept2024 8:56am July 08, 2025 8:56amAlbumin (Send Out)July 08, 2025 8:56am July 08, 2025 8:56am3.33 g/dLBelow low normal3.43-5.41Free Askov/Lambda Light Chain RatioSept2024 8:56amSept2024 8:56am12.64 Above high normal0.26-1.65Serum Total ProteinSept2024 8:56am July 08, 2025 8:56am5.5 g/dLBelow low normal6.3-8.0Alanine Aminotransferase (ALT/SGPT)July 08, 2025 8:56amSept2024 8:56am13 U/L7-38Immunoglobulin ASept2024 8:56amSept2024 8:56am64 mg/dLBelow low -459KYT46 L265P MutationSept2024 9:03amSeptember 2024 9:03amSee bxkibcnRGA27 L265P MUTATION ANALYSISLaboratory Accession Number: [id number] Type: Peripheral BloodRe sult:MYD88 L265P (c.794T>C, p.Tpi165Enh) detected with variant allelefraction (vaf) 0.98%.Interpretation: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 This abnormality may also be found in diffuse large B- celllymphomas and in a small percentage of other small B-cell neoplasmsincluding chronic lymphocytic leukemia and marginal zone lymphomas.Clinical and pathologic correlation is suggested.Methodology:DNA extracted from the specimen is interrogated for the presence orabsence of the L265P (c.794T>C, p.Zge903Mmt; g.[id number]; [id number])variant (mutation) in MYD88 gene (NM_[id number]) using droplet digitalpolymerase chain reaction (PCR). Droplet digital PCR includespartitioning of DNA into droplets, droplet independent PCR,interrogation using allele specific hydrolysis probes, and analysis ofdroplets using Poisson distribution to calculate the copy number ofMYD88 L265P and wild-type MYD88. The reference genome used bvOMIb80/hg38.Limitations:This test is designed to detect the L265P variant in the MYD88 gene.Uncommon variants or single nucleotide polymorphisms may affectbinding of probes or primers and may rarely result in false negative,false positive, or indeterminate results. Other variants in MYD88 willnot be identifiedby this test. The lower limit of detection of thisassay is approximately 0.5% variant allele fraction (vaf) for muaQHU34 L265P variant. Although vaf is provided for reference, thisvalue should be interpreted with caution as this test is intended forqualitative purposes and is not validated as a quantitative test. PszOZU07 L265P result cannot be used on a standalone basis for diagnosisof lymphoplasmacytic lymphoma and needs to be considered in thecontext of clinical and morphologic presentation.References:1) Nikkie VN, Cristhian RM, Hannah R, et al. Oncogenically active FCX46ziyqttedx in human lymphoma. Nature 2011. 470(4978):115-9.2) Joya SL, Anai WagonerJ, DW, James L, Mikey JR, Nash ED: [id number] somatic mutation: its usefulness in the differential diagnosisof bone marrow involvement by B-cell lymphoproliferative disorders. AmJ Clin Pathol. 2013. 140(3):387-94.3) Obi SP, Spencer L, Todd G,et al. 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 N Engl J Med. 2012. 367(8)672-11.4) Almonte JQ, Juan J YS, Ariel LL, Tanya K. Toll-like receptorsand cancer: MYD88 mutation and inflammation. Front Immunol. 2014 ;367(5):1-10.5) Gabriel X, Li W, Maykel Q, et al. 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 Cancer Res. 2018. 78(10):9299-47.Disclaimer:This test was developed and its performance characteristics determinedby [facility]'s [facility] and [facility] Department. Ithas not been cleared or approved by the FDA. [facility] is regulated under CLIAas certified to perform high-complexity testing. Thistest is used forclinical purposes. It should not be regarded as investigational or forresearch.Testperformed at [facility], [address] [place] [address]. CLIA Number: [id number] performed by Natalee Bolanos, PhD, HCLDErythropoietinSeptember 2024 9:03amSeptember 2024 9:03am26.4 mIU/mLAbove high normal2.6-18.5Iron LevelSept2024 9:03amSeptember 2024 10:41pm45 ug/rE20-142FhziiwDcubfnutl 2024 9:03amSept2024 9:03am17.5 ng/mL>4.7FerritinSeptember 2024 9:03amSept2024 10:59fl482.0 ng/mL14.7-205.1Vitamin B12 Level July 15, 2025 9:03amSept2024 10:52nc9861 pg/mLAbove high mrloqy825-4886Zzubgsr Aminotransferase (ALT/SGPT)July 15, 2025 9:03am July 15, 2025 9:03am10 U/L7-38Basophils # (Auto)July 15, 2025 9:03amSeptember 2024 9:03am0.05 k/uL<0.11B-Type Natriuretic PeptideOctober 2024 5:15amOctober 2024 5:10jd9102.0 pg/mL<=1800.0Troponin I High SensitivityOctober 2024 5:15amOctober 2024 5:15am17.5 pg/mL4.0-51.3 CUT-OFF POINTS HAVE BEEN ESTABLISHED BASED ON THE FOURTHUNIVERSAL DEFINITION OF MYOCARDIAL INFARCTION. THE UPPERREFERENCE LIMIT (URL) OF TROPONIN, DEFINED THE 99THPERCENTILE OF cTnI DISTRIBUTION IN A REFERENCE POPULATION,HAS BEEN CONFIRMED THE DECISION THRESHOLD FOR MIDIAGNOSIS.99TH PERCENTILE = 51.4 PG/MLNOTE: HIGH-SENSITIVITY TROPONIN ASSAY IS NOT INTENDED TO BEUSED IN ISOLATION BUT SHOULD BE INTERPRETED IN CONJUNCTIONWITH OTHER DIAGNOSTIC AND CLINICAL INFORMATION.Anion GapOctober 2024 5:15amOctober 2024 5:15am 16.2Lactic Acid LevelOctober 2024 5:15amOctober 2024 5:15am0.8 mmol/L0.4-2.0Basophils # (Auto)August 10, 2025 5:15amOctober 2024 5:15am0.0 10 3/uL0.0-0.1Urine Culture ReflexedAugust 10, 2025 7:28amNOAnion GapOctober 2024 4:38amOctober 2024 4:38am13.0Basophils # (Auto) August 11, 2025 4:38amOctober 2024 4:38am0.0 10 3/uL0.0-0.1Hematocrit August 11, 2025 9:13amOctober 2024 9:13am23.7 %Below lower panic limits 36.0-48.0RESULTS CALLED TO ETHAN ZULETA RNB-Type Natriuretic PeptideOctober 2024 6:41amOctober 2024 6:09mc0792.0 pg/mL<=1800.0Troponin I High SensitivityOct2024 6:41amOctober 2024 6:41am15.5 pg/mL4.0-51.3 CUT-OFF POINTS HAVE BEEN ESTABLISHED BASED ON THE FOURTHUNIVERSAL DEFINITION OF MYOCARDIAL INFARCTION. THE UPPERREFERENCE LIMIT (URL) OF TROPONIN, DEFINED THE 99THPERCENTILE OF cTnI DISTRIBUTION IN A REFERENCE POPULATION,HAS BEEN CONFIRMED THE DECISION THRESHOLD FOR MIDIAGNOSIS.99TH PERCENTILE = 51.4 PG/MLNOTE: HIGH-SENSITIVITY TROPONIN ASSAY IS NOT INTENDED TO BEUSED IN ISOLATION BUT SHOULD BE INTERPRETED IN CONJUNCTIONWITH OTHER DIAGNOSTIC AND CLINICAL INFORMATION.Anion GapOctober 2024 6:41amOctober 2024 6:41am 13.3Basophils # (Auto)August 14, 2025 6:41amOctober 2024 6:41am0.0 10 3/uL0.0-0.1Anion GapOctober 2024 5:35amOctober 2024 5:35am15.6 HematocritOctober 2024 5:35amOctober 2024 5:35am22.7 %Below lower panic wonjou26.0-48.0RESULTS CALLED TO MAI OTERO, RNAnion GapOctober 2024 4:54amOctober 2024 4:54am14.1Basophils # (Auto)August 25, 2025 10:37amOctober 2024 10:37am0.0 10 3/uL0.0-0.1Thyroid Stimulating Hormone 3rd GenOctober 2024 10:37amOctober 2024 10:37am3.230 u[iU]/mL 0.358-3.740B-Type Natriuretic PeptideOctober 2024 10:37amOctober 2024 10:93tr590.0 pg/mL<=1800.0Vitamin B12 LevelOctober 2024 10:37am August 25, 2025 10:43cq8156 pg/mLAbnormal (applies to non-numeric results) 232-1245Performed at: [facility] [id number] Director: Carlos Witt PhD, Phone: [phone] 28th, 2025 10:37amOctober 2024 10:37am18.90 ng/mL8.60-58.90FerritinOctober 2024 10:37amOctober 2024 10:00hf374.0 ng/mLAbove high normal 8.0-252.0Anion GapOct2024 5:32pmOctober 2024 5:32pm13.2Urine OsmolalityOct2024 7:45pmOctober 2024 7:23xd074 mOsmol/kg.24 hr : 300 - 900 Random: 50 - 1400 After 12hr fluid restriction: >850Performed at: [address] [id number] Director: Lizet Paiz MD, Phone: [phone] Culture ReflexedAugust 25, 2025 7:45pmNOOsmolalityOct2024 4:35amOctober 2024 4:77su114 mOsmol/kgAbnormal (applies to non-numeric results)280-301Performed at: [facility] [employer] [id number] Director: Lizet Paiz MD, Phone: [phone] AM SampleOct2024 4:35amOctober 2024 4:35am11.8 ug/dL6.2-19.4Performed at: [address] [id number] Director: Carlos Witt PhD, Phone: [phone] Total ProteinOct2024 4:35amOctober 2024 4:35am 5.2 g/dLAbnormal (applies to non-numeric results)6.0-8.5Vitamin B12 LevelOct2024 4:35amOctober 2024 4:44jn1318 pg/vS018-3411Sekhsdbee at: [address] [id number] Director: Carlos Witt PhD, Phone: [phone] # (Auto)August 26, 2025 4:35am August 26, 2025 4:35am0.0 10 3/uL0.0-0.1FerritinAugust 26, 2025 4:35am August 26, 2025 4:03zy340.0 ng/mL8.0-252.0B-Type Natriuretic PeptideOct2024 4:35amAugust 26, 2025 4:26dh333.0 pg/mL<=1800.0Magnesium Level August 26, 2025 4:35amOct2024 4:35am2.8 mg/dLAbove high normal 1.8-2.4Phosphorus LevelAugust 26, 2025 4:35amAugust 26, 2025 4:35am5.4 mg/dLAbove high normal2.6-4.7Iron SaturationAugust 26, 2025 4:35amAugust 26, 2025 4:35am8.6 %Stool Occult BloodAugust 26, 2025 2:00pmAugust 26, 2025 2:00pmNegativeAnion GapAugust 26, 2025 6:58pmOct2024 6:58pm 12.3Albumin/Globulin RatioAugust 27, 2025 3:54amOct2024 3:54am1.0 Anion GapAugust 27, 2025 5:20pmOct2024 5:20pm13.4HematocritAugust 27, 2025 5:20pmOct2024 5:20pm27.3 %Below low .0-48.0Anion GapAugust 28, 2025 4:09amOctober 2024 4:09am11.6HematocritOct2024 4:09amOctober 2024 4:09am27.3 %Below low mkoivj99.0-48.0Anion Gap August 29, 2025 4:48amNovember 2024 4:48am10.4HematocritNov2024 4:48amNovember 2024 4:48am26.7 %Below low rxkfxy64.0-48.0Protein Electrophoresis M-SpikeAugust 2024 6:25amA2024 6:25am0.2 g/dL Abnormal (applies to non-numeric results)Not ObservedIron LevelAugust 2024 6:25amAugu2024 6:25am35.0 ug/dLBelow low .0-170.0Cholesterol LevelAugust 2024 6:25amA2024 6:35iw820 mg/dL<=200 Albumin/Globulin RatioAugust 2024 6:25amAugu2024 6:25am1.0 Basophils (%) (Auto)June 23, 2025 6:amA2024 6:25am0.7 %0.2-2.0 Urine Random MicroalbuminAugust 2024 8:00amA2024 8:00am20.1 mg/dL<=30.0Serum ImmunofixationSept2024 8:56amSeptember 2024 8:56amAbnormal (applies to non-numeric results)No M protein is identified. Bnhyr-0-LfttnfmkaAngzwgkus 10th, 2025 8:56amSept2024 8:56am0.42 g/dL 0.18-0.43Free Lambda Light Chains, QuantSept2024 8:56amSept2024 8:56am23.8 mg/L5.7-26.3Rarely, increased serum free light chains levels may not be detected or accurately quantified due to prozone phenomenon or in high viscosity samples using this immunoturbidimetric assay. Correlation w ith other laboratory results and clinical findings is recommended. The Lambda Free Light Chain was performed using the Binding Site Optilite immunoturbidimetric method. Result obtained with differentassay methods or kits cannot be used interchangeably.AlbuminSeptember 2024 8:56amSept2024 8:56am3.6 g/dLBelow low normal3.9-4.9Immunoglobulin GSept2024 8:56amSept2024 8:59pz359 mg/dLBelow low wpqoou782-2547Urhuq Iron Binding CapacitySeptember 2024 9:03amSeptember 2024 10:65pr234 ug/dL 232-386AlbuminSeptember 2024 9:03amSeptember 2024 9:03am3.7 g/dL Below low normal3.9-4.9Basophils (%) (Auto)July 15, 2025 9:03amSeptember 2024 9:03am0.8 %Albumin/Globulin RatioOctober 2024 5:15amOctober 2024 5:15am1.0Basophils (%) (Auto)August 10, 2025 5:15amOctober 2024 5:15am0.5 %0.2-2.0Urine Other CastsOctober 2024 7:28amNONE SEEN #/LPF NONE SEENBUN/Creatinine RatioOctober 2024 4:38amOctober 2024 4:38am 22.8Basophils (%) (Auto)August 11, 2025 4:38amOctober 2024 4:38am0.8 % 0.2-2.0HemoglobinOctober 2024 9:13amOctober 2024 9:13am8.0 g/dLBelow low zwygoh27.0-16.0BUN/Creatinine RatioOct2024 6:41amOctober 2024 6:41am21.2Basophils (%) (Auto)August 14, 2025 6:41amOctober 2024 6:41am0.4 %0.2-2.0BUN/Creatinine RatioOctober 2024 5:35amOctober 2024 5:35am21.1HemoglobinOct2024 5:35amOctober 2024 5:35am7.6 g/dLBelow low .0-16.0BUN/Creatinine RatioOctober 2024 4:54am August 16, 2025 4:54am22.6Basophils (%) (Auto)August 25, 2025 10:37am August 25, 2025 10:37am0.4 %0.2-2.0Albumin/Globulin RatioOct2024 10:37amOctober 2024 10:37am1.1BUN/Creatinine RatioOct2024 5:32pmOctober 2024 5:32pm32.3Urine Other CastsOctober 2024 7:45pm NONE SEEN #/LPFNONE SEENProtein Electrophoresis NoteOct2024 4:35am August 26, 2025 4:35amComment.Protein electrophoresis scan will follow via computer,mail, or loom setter delivery.Performed at: [email or web address] [id number] Director: Carlos Witt PhD, Phone: [phone] Basophils (%) (Auto)August 26, 2025 4:35amOctober 2024 4:35am0.4 % 0.2-2.0Iron LevelOct2024 4:35amOctober 2024 4:35am24.0 ug/dL Below low .0-170.0BUN/Creatinine RatioOct2024 6:58pmOctober 2024 6:58pm38.0AlbuminOct2024 3:54amOctober 2024 3:54am 2.5 g/dLBelow low normal3.4-5.0BUN/Creatinine RatioOct2024 5:20pm August 27, 2025 5:20pm34.8HemoglobinOct2024 5:20pmOctober 2024 5:20pm9.2 g/dLBelow low kmecft40.0-16.0BUN/Creatinine RatioOct2024 4:09amOct2024 4:09am34.4HemoglobinOct2024 4:09am August 28, 2025 4:09am8.9 g/dLBelow low owwlxk75.0-16.0Albumin/Globulin Ratio August 29, 2025 4:48amNovember 2024 4:48am0.9HemoglobinNov2024 4:48amNovember 2024 4:48am8.7 g/dLBelow low fgcanf93.0-16.0Globulin (PEP)June 23, 2025 6:25amAugu2024 6:25am2.5 g/dL2.2-3.9Total Iron Binding CapacityAugus2024 6:25amAugu2024 6:42ab983.0 ug/dLBelow low .0-450.0HDL CholesterolAugus2024 6:25amA2024 6:25am45 mg/dL40-60> or =60 mg/dl - LOW CARDIOVASCULAR RISK<40 mg/dl - HIGH CARDIOVASCULAR RISKAlbuminAugust 2024 6:25amA2024 6:25am3.2 g/dLBelow low normal3.4-5.0Eosinophils # (Auto)June 23, 2025 6:25amA2024 6:25am0.2 10 3/uL0.0-0.7Urine Microalbumin/Creatinine RatioAugallup indian medical centert 2024 8:00amA2024 8:23kj567.8 mg/gAbove high normal0.0-29.9NO MICROALBUMINURIA 0-29 MG/GCLINICAL MICROALBUMINURIA 30-300 MG/GMACROALBUMINURIA >300 MG/GLeuk/Lymph Sign Pathologist (Misc)July 08, 2025 8:56amSeptember 2024 8:56amReviewed by Dr. Jennifer David XOExotk-1-MttxhkaspFmdlblesh 10th, 2025 8:56amSept2024 8:56am0.86 g/dL0.42-0.98Free Askov Light Chains, QuantSept2024 8:56amSept2024 8:76kt636.9 mg/L Above high normal3.3-19.4Rarely, increased serum free light chains levels may not be detected or accurately quantified due to prozone phenomenon or in high viscosity samples using this immunoturbidimetric assay. Correlation with other laboratory results and clinical findings is recommended. The Askov Free Light Chain was performed using the Binding Site Optilite immunoturbidimetric method. Result obtained with different assay methods or kits cannot be used interchangeably.Aspartate Amino Transf (AST/SGOT)July 08, 2025 8:56am July 08, 2025 8:56am22 U/V56-00Ojkmwowxwcsfcy MSept2024 8:56amSept2024 8:93ka433 mg/dLAbove high maassl20-501Xclz Saturation July 15, 2025 9:03amSeptember 2024 10:41pm17.6 %15.0-57.0Aspartate Amino Transf (AST/SGOT)July 15, 2025 9:03amSept2024 9:03am16 U/F65-71Pspkefwujaj # (Auto)July 15, 2025 9:03amSept2024 9:03am0.16 k/uL<0.46AlbuminOctober 2024 5:15amOctober 2024 5:15am3.1 g/dLBelow low normal3.4-5.0Eosinophils # (Auto)August 10, 2025 5:15amOctober 2024 5:15am0.1 10 3/uL0.0-0.7Urine Other CrystalsOct2024 7:28amNone Seen #/HPFNone SeenBlood Urea NitrogenOctober 2024 4:38am August 11, 2025 4:38am31.0 mg/dLAbove high normal7.0-18.0Eosinophils # (Auto) August 11, 2025 4:38amOctober 2024 4:38am0.2 10 3/uL0.0-0.7Blood Urea NitrogenOctober 2024 6:41amOctober 2024 6:41am32.0 mg/dLAbove high normal7.0-18.0Eosinophils # (Auto)August 14, 2025 6:41amOctober 2024 6:41am0.2 10 3/uL0.0-0.7Blood Urea NitrogenOctober 2024 5:35amOctober 2024 5:35am30.0 mg/dLAbove high normal7.0-18.0Mean Corpuscular Hemoglobin August 15, 2025 5:35amOctober 2024 5:35am29.2 pg26.7-34.0Blood Urea NitrogenOct2024 4:54amOctober 2024 4:54am30.0 mg/dLAbove high normal7.0-18.0Eosinophils # (Auto)August 25, 2025 10:37amOctober 2024 10:37am0.1 10 3/uL0.0-0.7AlbuminOctober 2024 10:37amOctober 2024 10:37am3.2 g/dLBelow low normal3.4-5.0Blood Urea NitrogenOctober 2024 5:32pmOctober 2024 5:32pm54.0 mg/dLAbove high normal7.0-18.0Urine Other CrystalsOctober 2024 7:45pmNone Seen #/HPFNone SeenAlbumin (Send Out) August 26, 2025 4:35amOctober 2024 4:35am2.9 g/dL2.9-4.4Eosinophils # (Auto)August 26, 2025 4:35amOctober 2024 4:35am0.2 10 3/uL0.0-0.7Total Iron Binding CapacityOctober 2024 4:35amOctober 2024 4:67je231.0 ug/dL250.0-450.0Blood Urea NitrogenOctober 2024 6:58pmOctober 2024 6:58pm60.0 mg/dLAbove high normal7.0-18.0Mean Corpuscular HemoglobinOctober 2024 3:54amOctober 2024 3:54am28.9 pg26.7-34.0Alkaline Phosphatase August 27, 2025 3:54amOct2024 3:54am38 U/LBelow low iywhpd68-834 Blood Urea NitrogenOct2024 5:20pmOct2024 5:20pm56.0 mg/dL Above high normal7.0-18.0Blood Urea NitrogenOct2024 4:09amOct2024 4:09am54.0 mg/dLAbove high normal7.0-18.0Mean Corpuscular Hemoglobin August 28, 2025 4:09amOctober 2024 4:09am28.3 pg26.7-34.0Albumin August 29, 2025 4:48amNovember 2024 4:48am2.6 g/dLBelow low normal 3.4-5.0Mean Corpuscular HemoglobinAugust 29, 2025 4:48amNovember 2024 4:48am28.6 pg26.7-34.0Albumin/Globulin (PEP)June 23, 2025 6:25amAugu2024 6:25am1.30.7-1.7LDL Cholesterol, CalculatedAugus2024 6:25amA2024 6:25am60.2 mg/dL<100 mg/dl STDNZCY913-140 mg/dl NEAR OR ABOVE BWONEYW446-517 mg/dl BORDERLINE SEHX336-065 mg/dl HIGH>190 mg/dl VERY HIGH Alkaline PhosphataseAugus2024 6:25amA2024 6:25am47 U/L46-116 Eosinophils (%) (Auto)June 23, 2025 6:25amAugu2024 6:25am2.7 % 0.9-7.0Beta GlobulinsSeptember 2024 8:56amSept2024 8:56am0.53 g/dLBelow low normal0.61-1.17Total BilirubinSeptember 2024 8:56amSeptember 2024 8:56am0.3 mg/dL0.2-1.3Total BilirubinSeptember 2024 9:03am July 15, 2025 9:03am0.3 mg/dL0.2-1.3Eosinophils (%) (Auto)July 15, 2025 9:03amSeptember 2024 9:03am2.5 %Alkaline PhosphataseOct2024 5:15amOctober 2024 5:15am46 U/B10-751Scqzbjcjada (%) (Auto)August 10, 2025 5:15amOctober 2024 5:15am2.1 %0.9-7.0Urine BacteriaOct2024 7:28amTRACE #/HPFAbnormal (applies to non-numeric results)NONE SEEN Calcium LevelOct2024 4:38amOctober 2024 4:38am8.5 mg/dL8.5-10.1 Eosinophils (%) (Auto)August 11, 2025 4:38amOctober 2024 4:38am4.4 % 0.9-7.0Calcium LevelOct2024 6:41amOctober 2024 6:41am8.4 mg/dL Below low normal8.5-10.1Eosinophils (%) (Auto)August 14, 2025 6:41amOctober 2024 6:41am2.5 %0.9-7.0Calcium LevelOct2024 5:35amOctober 2024 5:35am8.4 mg/dLBelow low normal8.5-10.1Mean Corpuscular Hemoglobin Concent August 15, 2025 5:35amOctober 2024 5:35am33.5 g/dL29.9-35.2Calcium LevelOct2024 4:54amOctober 2024 4:54am8.3 mg/dLBelow low normal 8.5-10.1Eosinophils (%) (Auto)August 25, 2025 10:37amOctober 2024 10:37am1.7 %0.9-7.0Alkaline PhosphataseOct2024 10:37amOctober 2024 10:37am50 U/U01-619Trvjghv LevelOctober 2024 5:32pmOctober 2024 5:32pm8.8 mg/dL8.5-10.1Urine BacteriaOct2024 7:45pmNONE SEEN #/HPF NONE MEUVVcvww-5-RwqbtaswqGdekaqd 29th, 2025 4:35amOctober 2024 4:35am0.3 g/dL0.0-0.4Eosinophils (%) (Auto)August 26, 2025 4:35amOctober 2024 4:35am3.1 %0.9-7.0Calcium LevelOct2024 6:58pmOctober 2024 6:58pm8.3 mg/dLBelow low normal8.5-10.1Mean Corpuscular Hemoglobin Concent August 27, 2025 3:54amOctober 2024 3:54am33.3 g/dL29.9-35.2Alanine Aminotransferase (ALT/SGPT)August 27, 2025 3:54amOctober 2024 3:54am18 U/T84-98Ihlpynd LevelOct2024 5:20pmOctober 2024 5:20pm8.0 mg/dL Below low normal8.5-10.1Calcium LevelOct2024 4:09amOctober 2024 4:09am8.4 mg/dLBelow low normal8.5-10.1Mean Corpuscular Hemoglobin Concent August 28, 2025 4:09amOctober 2024 4:09am32.6 g/dL29.9-35.2Alkaline PhosphataseAugust 29, 2025 4:48amNovember 2024 4:48am43 U/LBelow low noefcj79-576Xclw Corpuscular Hemoglobin ConcentAugust 29, 2025 4:48amNovember 2024 4:48am32.6 g/dL29.9-35.2Serum Immunofixation InterpretationAugust 2024 6:25amAugu2024 6:25amCommentAbnormal (applies to non-numeric results).Immunofixation shows IgM monoclonal protein with kappalight chain specificity.Triglycerides LevelAugust 2024 6:25amA2024 6:25am 89 mg/dL<=150Alanine Aminotransferase (ALT/SGPT)June 23, 2025 6:252024 6:25am18 U/E13-78UdtvehqnoqVjncyk 26th, 2025 6:25amAugu2024 6:25am28.3 %Below low szfyxg94.0-48.0Gamma GlobulinsSept2024 8:56am July 08, 2025 8:56am0.37 g/dLBelow low normal0.53-1.51Carbon Dioxide LevelSeptember 2024 8:56amSept2024 8:56am24 mmol/L25-41[place] Dioxide LevelSeptember 2024 9:03amSeptember 2024 9:03am28 mmol/L 22-30HemoglobinSeptember 2024 9:03amSeptember 2024 9:03am8.9 g/dL Below low ehcstv92.5-15.5Alanine Aminotransferase (ALT/SGPT)August 10, 2025 5:15amOctober 2024 5:15am19 U/N78-81EfqshaoklnBpruouz 2024 5:15am August 10, 2025 5:15am25.9 %Below low axtrdg31.0-48.0Urine BilirubinOctober 2024 7:28amNEGATIVENEGATIVEChloride LevelOctober 2024 4:38amOctober 2024 4:89zs647 mmol/X78-407Ctrqowxv LevelOctober 2024 6:41amOctober 2024 6:95nj246 mmol/Z71-720RobmlxazjfHkxtmjx 2024 6:41amOctober 2024 6:41am24.9 %Below low fzuvzt46.0-48.0Chloride LevelOctober 2025 5:35amOctober 2024 5:35am99 mmol/F71-641Lwdi Corpuscular VolumeOct2024 5:35amOctober 2024 5:35am87.3 fL81.0-99.0Chloride LevelOct2024 4:54amOctober 2024 4:54am97 mmol/LBelow low uogggl80-385 HematocritOct2024 10:37amOctober 2024 10:37am24.0 %Below low kbuudc20.0-48.0Alanine Aminotransferase (ALT/SGPT)August 25, 2025 10:37am August 25, 2025 10:37am23 U/W80-95Hdwarpqt LevelOct2024 5:32pm August 25, 2025 5:32pm85 mmol/LBelow low pvtwov23-443Koltp BilirubinOct2024 7:94kcWZDGPNOJWUCWVVTUVpdnq-9-YtsucddvhDfhevzo 2024 4:35am August 26, 2025 4:35am1.0 g/dL0.4-1.0HematocritOctober 2024 4:35am August 26, 2025 4:35am22.4 %Below lower panic obhkfc38.0-48.0RESULTS CALLED TO CECILIA CHIANG RN @BY Birdie Stanford at 0629Chloride LevelOct2024 6:58pmOctober 2024 6:58pm94 mmol/LBelow low savpgg67-218Lrho Corpuscular VolumeOctober 2024 3:54amOctober 2024 3:54am86.6 fL 81.0-99.0Aspartate Amino Transf (AST/SGOT)August 27, 2025 3:54amOctober 2024 3:54am19 U/F23-96Sfkzohmk LevelOctober 2024 5:20pmOctober 2024 5:64lv394 mmol/M50-442Nfemoldc LevelOct2024 4:09amOct2024 4:17rb527 mmol/M49-678Vqci Corpuscular VolumeOctober 2024 4:09amOctober 2024 4:09am86.9 fL81.0-99.0Alanine Aminotransferase (ALT/SGPT)August 29, 2025 4:48amNovember 2024 4:48am20 U/O81-30Wxfh Corpuscular Volume August 29, 2025 4:48amNovember 2024 4:48am87.8 fL81.0-99.0Protein Electrophoresis NoteAugust 2024 6:25amAugust 2024 6:25amComment. 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 VLDL CholesterolAugust 2024 6:25amAugu2024 6:25am17.8 mg/dL Aspartate Amino Transf (AST/SGOT)June 23, 2025 6:25amAugu2024 6:25am18 U/K49-82HmppsccehoLcsjku 2024 6:25amAugust 2024 6:25am9.3 g/dLBelow low rmyica12.0-16.0Protein Electrophoresis NoteSeptember 2024 8:56amSeptember 2024 8:56amNo definitive M protein is identified on protein electrophoresis.No definitive M protein is identified on protein electrophoresis.Chloride LevelSeptember 2024 8:56amSeptember 2024 8:39jb325 mmol/C60-127Rtvklnbt LevelSeptember 2024 9:03amSeptember 2024 9:23hg517 mmol/V39-419Tmevsuyigii # (Auto)July 15, 2025 9:03am July 15, 2025 9:03am0.77 k/uLBelow low normal1.00-4.00Aspartate Amino Transf (AST/SGOT)August 10, 2025 5:15amOctober 2024 5:15am20 U/L15-37 HemoglobinOctober 2024 5:15amOctober 2024 5:15am8.7 g/dLBelow low gcgyhw62.0-16.0Urine Occult BloodOctober 2024 7:28amLARGEAbnormal (applies to non-numeric results)NEGATIVECarbon Dioxide LevelOct2024 4:38am August 11, 2025 4:38am26.9 mmol/L21.0-32.0Carbon Dioxide LevelOct2024 6:41amOct2024 6:41am23.9 mmol/L21.0-32.0HemoglobinOct2024 6:41amOctober 2024 6:41am8.2 g/dLBelow low uubjgh56.0-16.0Carbon Dioxide LevelOctober 2024 5:35amOctober 2024 5:35am25.5 mmol/L 21.0-32.0Mean Platelet VolumeOct2024 5:35amOct2024 5:35am 10.1 fL9.5-13.5Carbon Dioxide LevelOctober 2024 4:54amOctober 2024 4:54am27.1 mmol/L21.0-32.0HemoglobinOctober 2024 10:37amOct2024 10:37am8.3 g/dLBelow low tgfavz92.0-16.0Aspartate Amino Transf (AST/SGOT) August 25, 2025 10:37amOct2024 10:37am18 U/B78-74Waiesh Dioxide LevelOctober 2024 5:32pmOctober 2024 5:32pm28.0 mmol/L21.0-32.0Urine Occult BloodOctober 2024 7:45pmLARGEAbnormal (applies to non-numeric results)NEGATIVEBeta GlobulinsOct2024 4:35amOctober 2024 4:35am 0.7 g/dL0.7-1.3HemoglobinOctober 2024 4:35amOct2024 4:35am7.6 g/dLBelow low ilqxol79.0-16.0Carbon Dioxide LevelOctober 2024 6:58pm August 26, 2025 6:58pm27.5 mmol/L21.0-32.0Mean Platelet VolumeOctober 2024 3:54amOctober 2024 3:54am10.8 fL9.5-13.5Direct BilirubinOctober 2024 3:54amOctober 2024 3:54am0.1 mg/dL0.0-0.2Carbon Dioxide LevelOctober 2024 5:20pmOctober 2024 5:20pm25.6 mmol/L21.0-32.0Carbon Dioxide LevelOctober 2024 4:09amOctober 2024 4:09am29.4 mmol/L21.0-32.0Mean Platelet VolumeOctober 2024 4:09amOctober 2024 4:09am10.6 fL9.5-13.5 Aspartate Amino Transf (AST/SGOT)August 29, 2025 4:48amNovember 2024 4:48am18 U/M40-90Lwxi Platelet VolumeNov2024 4:48amNovember 2024 4:48am10.3 fL9.5-13.5Free Askov Light Chains, QuantAugust 2024 6:25am June 23, 2025 6:69zb195.6 mg/LAbnormal (applies to non-numeric results) 3.3-19.4BUN/Creatinine RatioAugust 2024 6:25amAugu2024 6:25am15.2 Immature Granulocyte # (Auto)June 23, 2025 6:25amA2024 6:25am 0.02 10 3/uL0.00-0.03Protein Electrophoresis M-SpikeSept2024 8:56am July 08, 2025 8:56am0.00 g/dL<=0.00CreatinineSept2024 8:56am July 08, 2025 8:56am1.65 mg/dLAbove high normal0.58-0.96Creatinine July 15, 2025 9:03amSeptember 2024 9:03am1.64 mg/dLAbove high normal0.58-0.96Lymphocytes (%) (Auto)July 15, 2025 9:03amSeptember 2024 9:03am12.3 %BUN/Creatinine RatioOctober 2024 5:15amOctober 2024 5:15am25.0Immature Granulocyte # (Auto)August 10, 2025 5:15amOctober 2024 5:15am0.03 10 3/uL0.00-0.03Urine AppearanceOctober 2024 7:28amCLEAR CLEARCreatinineOctober 2024 4:38amOctober 2024 4:38am1.36 mg/dLAbove high normal0.55-1.02Immature Granulocyte # (Auto)August 11, 2025 4:38am August 11, 2025 4:38am0.02 10 3/uL0.00-0.03CreatinineOctober 2024 6:41amOctober 2024 6:41am1.51 mg/dLAbove high normal0.55-1.02Immature Granulocyte # (Auto)August 14, 2025 6:41amOctober 2024 6:41am0.03 10 3/uL0.00-0.03CreatinineOctober 2024 5:35amOctober 2024 5:35am1.42 mg/dLAbove high normal0.55-1.02Platelet CountOct2024 5:35amOctober 2024 5:80nn490 10 3/bY432-458KlaxncykhxSgogswt 2024 4:54amOctober 2024 4:54am1.33 mg/dLAbove high normal0.55-1.02Immature Granulocyte # (Auto)August 25, 2025 10:37amOctober 2024 10:37am0.02 10 3/uL0.00-0.03 CreatinineOctober 2024 5:32pmOctober 2024 5:32pm1.67 mg/dLAbove high normal0.55-1.02Urine AppearanceOctober 2024 7:45pmCLEARCLEARGamma GlobulinsOctober 2024 4:35amOctober 2024 4:35am0.3 g/dLAbnormal (applies to non-numeric results)0.4-1.8Immature Granulocyte # (Auto)August 26, 2025 4:35amOctober 2024 4:35am0.02 10 3/uL0.00-0.03CreatinineOctober 2024 6:58pmOctober 2024 6:58pm1.58 mg/dLAbove high normal0.55-1.02 Platelet CountOctober 2024 3:54amOctober 2024 3:69dc378 10 3/uL 150-450GlobulinOctober 2024 3:54amOctober 2024 3:54am2.6 g/dL CreatinineOctober 2024 5:20pmOctober 2024 5:20pm1.61 mg/dLAbove high normal0.55-1.02CreatinineOctober 2024 4:09amOctober 2024 4:09am1.57 mg/dLAbove high normal0.55-1.02Platelet CountOctober 2024 4:09amOctober 2024 4:25ia788 10 3/gJ249-154CQB/Creatinine RatioNovember 2024 4:48am August 29, 2025 4:48am30.7Platelet CountNovember 2024 4:48amNovember 2024 4:60oz311 10 3/iK944-263Ynab Lambda Light Chains, QuantAugust 2024 6:25amAugu2024 6:25am21.2 mg/L5.7-26.3Blood Urea NitrogenAugust 2024 6:25amA2024 6:25am22.0 mg/dLAbove high normal7.0-18.0 Immature Granulocyte % (Auto)June 23, 2025 6:25amAugust 2024 6:25am0.4 %0.0-0.5Miscellaneous Test 6Sept2024 8:56amSept2024 8:56amSee commentNot Applicable.Glucose LevelSept2024 8:56am July 08, 2025 8:64tn752 mg/dLAbove high iojlat70-70Egh [place] [employer] (ADA) provides guidance for cutoff [...] diabetes.Reference: [facility] Diabetes 2016, [place] [employer]. Diabetes Care. 2016.39(Suppl 1). Glucose LevelSept2024 9:03amSept2024 9:51hb300 mg/dL Above high nahqqg34-03Uui [place] [employer] (ADA) provides guidance for cutoff [...] diabetes.Reference: [facility] [facility] Diabetes 2016, [place] [employer]. Diabetes Care. 2016.39(Suppl 1).Monocytes # (Auto)July 15, 2025 9:03amSept2024 9:03am0.65 k/uL<0.87Blood Urea NitrogenOctober 2024 5:15amOctober 2024 5:15am34.0 mg/dLAbove high normal7.0-18.0 Immature Granulocyte % (Auto)August 10, 2025 5:15amOctober 2024 5:15am 0.5 %0.0-0.5Urine ColorOctober 2024 7:28amLT. YELLOWYELLOWEstimated GFR ()August 11, 2025 4:38amOctober 2024 4:49nj06Zpzmv low normal>=60 mL/min/1.73m 2Immature Granulocyte % (Auto)August 11, 2025 4:38am August 11, 2025 4:38am0.4 %0.0-0.5Estimated GFR ()August 14, 2025 6:41amOctober 2024 6:03mv47Aufkk low normal>=60 mL/min/1.73m 2 Immature Granulocyte % (Auto)August 14, 2025 6:41amOctober 2024 6:41am 0.4 %0.0-0.5Estimated GFR ()August 15, 2025 5:35amOctober 2024 5:03yf07Krddy low normal>=60 mL/min/1.73m 2Red Blood CountAugust 15, 2025 5:35amOctober 2024 5:35am2.60 10 6/uLBelow low normal4.20-5.40 Estimated GFR ()August 16, 2025 4:54amOctober 2024 4:41vx52Xtwzp low normal>=60 mL/min/1.73m 2Immature Granulocyte % (Auto)August 25, 2025 10:37amOctober 2024 10:37am0.4 %0.0-0.5Estimated GFR ()August 25, 2025 5:32pmOctober 2024 5:85ro06Uzpwj low normal >=60 mL/min/1.73m 2Urine ColorOctober 2024 7:45pmLT. YELLOWYELLOWProtein Electrophoresis M-SpikeAugust 26, 2025 4:35amOctober 2024 4:35am Comment: g/dLNot ObservedSPE shows asymmetrical gamma. Suggest serum BRANDON and free lightchain analysis for further evaluation.Immature Granulocyte % (Auto) August 26, 2025 4:35amOctober 2024 4:35am0.4 %0.0-0.5Estimated GFR ()August 26, 2025 6:58pmOctober 2024 6:35jl31Hzoqd low normal>=60 mL/min/1.73m 2Red Blood CountOct2024 3:54amOctober 2024 3:54am2.32 10 6/uLBelow low normal4.20-5.40Total BilirubinOct2024 3:54amOctober 2024 3:54am0.2 mg/dL0.2-1.0Estimated GFR ()August 27, 2025 5:20pmOctober 2024 5:47ch88Xlmub low normal >=60 mL/min/1.73m 2Estimated GFR ()August 28, 2025 4:09am August 28, 2025 4:57kv60Htnuo low normal>=60 mL/min/1.73m 2Red Blood Count August 28, 2025 4:09amOctober 2024 4:09am3.14 10 6/uLBelow low normal 4.20-5.40Blood Urea NitrogenNov2024 4:48amNovember 2024 4:48am 43.0 mg/dLAbove high normal7.0-18.0Red Blood CountNov2024 4:48am August 29, 2025 4:48am3.04 10 6/uLBelow low normal4.20-5.40Free Askov/Lambda Light Chain RatioAugust 2024 6:25amAugu2024 6:25am10.59Abnormal (applies to non-numeric results)0.26-1.65Performed at: - [facility] [id number] Director: Carlos Witt PhD, Phone: [phone] LevelAugust 2024 6:25amAugust 2024 6:25am8.9 mg/dL 8.5-10.1Lymphocytes # (Auto)June 23, 2025 6:25amAugust 2024 6:25am0.8 10 3/uLBelow low normal1.2-3.8Protein Electrophoresis InterpretSept2024 8:56amSept2024 8:56amPotassium LevelSept2024 8:56am July 08, 2025 8:56am5.3 mmol/LAbove high normal3.7-5.1Potassium Level July 15, 2025 9:03amSeptember 2024 9:03am4.7 mmol/L3.7-5.1 Neutrophils # (Auto)July 15, 2025 9:03amSeptember 2024 9:03am4.62 k/uL1.45-7.50Calcium LevelOct2024 5:15amOctober 2024 5:15am8.6 mg/dL8.5-10.1Lymphocytes # (Auto)August 10, 2025 5:15amOctober 2024 5:15am0.9 10 3/uLBelow low normal1.2-3.8Urine Glucose (UA)August 10, 2025 7:28amNEGATIVE mg/dLNEGATIVEEstimated GFR (Non- AmericanOct2024 4:38amOctober 2024 4:46qd61Deszk low normal>=60 mL/min/1.73m 2 Lymphocytes # (Auto)August 11, 2025 4:38amOctober 2024 4:38am0.8 10 3/uLBelow low normal1.2-3.8Estimated GFR (Non- AmericanOct2024 6:41amOctober 2024 6:15uk57Nzrcw low normal>=60 mL/min/1.73m 2Lymphocytes # (Auto)August 14, 2025 6:41amOctober 2024 6:41am0.7 10 3/uLBelow low normal1.2-3.8Estimated GFR (Non- AmericanOct2024 5:35amOctober 2024 5:76tj20Fwijq low normal>=60 mL/min/1.73m 2Red Cell Distribution WidthOctober 2024 5:35amOctober 2024 5:35am13.6 %11.0-15.0Estimated GFR (Non- AmericanOct2024 4:54amOctober 2024 4:54am38 Below low normal>=60 mL/min/1.73m 2Lymphocytes # (Auto)August 25, 2025 10:37amOctober 2024 10:37am0.6 10 3/uLBelow low normal1.2-3.8Estimated GFR (Non- AmericanOct2024 5:32pmOctober 2024 5:52fv32Odvfy low normal>=60 mL/min/1.73m 2Urine Glucose (UA)August 25, 2025 7:45pmNEGATIVE mg/dLNEGATIVEGlobulin (PEP)August 26, 2025 4:35amOctober 2024 4:35am 2.3 g/dL2.2-3.9Lymphocytes # (Auto)August 26, 2025 4:35amOctober 2024 4:35am0.9 10 3/uLBelow low normal1.2-3.8Estimated GFR (Non- August 26, 2025 6:58pmOctober 2024 6:86ec83Zoawu low normal>=60 mL/min/1.73m 2Red Cell Distribution WidthOctober 2024 3:54amOctober 2024 3:54am13.3 %11.0-15.0Total ProteinOctober 2024 3:54amOctober 2024 3:54am5.1 g/dLBelow low normal6.4-8.2Estimated GFR (Non- August 27, 2025 5:20pmOctober 2024 5:08un65Zsozp low normal>=60 mL/min/1.73m 2Estimated GFR (Non- AmericanOct2024 4:09am August 28, 2025 4:02wa70Grqjd low normal>=60 mL/min/1.73m 2Red Cell Distribution WidthOctober 2024 4:09amOctober 2024 4:09am14.7 % 11.0-15.0Calcium LevelNov2024 4:48amNovember 2024 4:48am8.4 mg/dLBelow low normal8.5-10.1Red Cell Distribution WidthNov2024 4:48amNovember 2024 4:48am14.5 %11.0-15.0Immunoglobulin AAugu2024 6:25amAugu2024 6:25am62 mg/dLAbnormal (applies to non-numeric results) 64-422Chloride LevelAugust 2024 6:25amAugu2024 6:58xd267 mmol/L 98-107Lymphocytes (%) (Auto)June 23, 2025 6:252024 6:25am14.4 %Below low menpea12.5-60.0Miscellaneous Test CommentSept2024 8:56am July 08, 2025 8:56amReviewed by Dr. Jennifer David MDSerum Total Protein July 15, 2025 9:03amSept2024 9:03am5.9 g/dLBelow low normal 6.3-8.0Neutrophils (%) (Auto)July 15, 2025 9:03amSept2024 9:03am73.5 %Chloride LevelOctober 2024 5:15amOctober 2024 5:85ad236 mmol/L34-352Ixzbjfughro (%) (Auto)August 10, 2025 5:15amOctober 2024 5:15am14.4 %Below low piiyjv06.5-60.0Urine KetonesOctober 2024 7:28am NEGATIVE mg/dLNEGATIVEGlucose LevelOctober 2024 4:38amOctober 2024 4:38am91 mg/hV89-751Rceroisrhrk (%) (Auto)August 11, 2025 4:38amOctober 2024 4:38am15.6 %Below low vaccgu57.5-60.0Glucose LevelOctober 2024 6:41amOctober 2024 6:51bv653 mg/dLAbove high -294Ehbhlfaniks (%) (Auto)August 14, 2025 6:41amOctober 2024 6:41am9.4 %Below low normal 20.5-60.0Glucose LevelOctober 2024 5:35amOctober 2024 5:35am97 mg/dL 74-106Corrected White Blood CountOctober 2024 5:35amOctober 2024 5:35am4.8 10 3/uL4.0-11.0Glucose LevelOctober 2024 4:54amOctober 2024 4:54am93 mg/nP45-955Hclertyxlgp (%) (Auto)August 25, 2025 10:37amOctober 2024 10:37am13.1 %Below low .5-60.0Glucose LevelOctober 2024 5:32pmOctober 2024 5:48yc785 mg/dLAbove high syymos77-305Kinbb KetonesOctober 2024 7:45pmNEGATIVE mg/dLNEGATIVEAlbumin/Globulin (PEP) August 26, 2025 4:35amOctober 2024 4:35am1.30.7-1.7Lymphocytes (%) (Auto)August 26, 2025 4:35amOctober 2024 4:35am15.3 %Below low normal 20.5-60.0Glucose LevelOctober 2024 6:58pmOctober 2024 6:99ea485 mg/dLAbove high myajyk97-000Wiypzluwk White Blood CountOctober 2024 3:54am August 27, 2025 3:54am4.7 10 3/uL4.0-11.0Glucose LevelOctober 2024 5:20pmOctober 2024 5:03aw775 mg/dLAbove high ilqudn09-603Miannmb Level August 28, 2025 4:09amOctober 2024 4:09am83 mg/pD11-524Jxrqpuyeu White Blood CountOctober 2024 4:09amOctober 2024 4:09am5.5 10 3/uL4.0-11.0 Chloride LevelNovember 2024 4:48amNovember 2024 4:02ya081 mmol/L98-107 Corrected White Blood CountNovember 2024 4:48amNovember 2024 4:48am6.2 10 3/uL4.0-11.0Immunoglobulin MAugu2024 6:25amAugu2024 6:25am 325 mg/dLAbnormal (applies to non-numeric results)26-217Carbon Dioxide Level June 23, 2025 6:25amAugu2024 6:25am30.2 mmol/L21.0-32.0Mean Corpuscular HemoglobinAugust 2024 6:25amAugu2024 6:25am29.0 pg 26.7-34.0Sodium LevelSeptember 2024 8:56amSept2024 8:47jv585 mmol/V167-630Ytvtgy LevelSeptember 2024 9:03amSeptember 2024 9:03am 139 mmol/Y689-278Drzqjujqd Red Blood Cells #July 15, 2025 9:03amSeptember 2024 9:03am<0.01 k/uL<0.01Carbon Dioxide LevelOctober 2024 5:15am August 10, 2025 5:15am26.6 mmol/L21.0-32.0Mean Corpuscular HemoglobinOctober 2024 5:15amOctober 2024 5:15am29.0 pg26.7-34.0Urine Leukocyte EsteraseOctober 2024 7:28amTRACEAbnormal (applies to non-numeric results) NEGATIVEPotassium LevelOctober 2024 4:38amOctober 2024 4:38am3.9 mmol/L3.5-5.1Mean Corpuscular HemoglobinOctober 2024 4:38amOctober 2024 4:38am29.0 pg26.7-34.0Potassium LevelOctober 2024 6:41amOctober 2024 6:41am4.2 mmol/L3.5-5.1Mean Corpuscular HemoglobinOctober 2024 6:41amOctober 2024 6:41am28.3 pg26.7-34.0Potassium LevelOctober 2024 5:35amOctober 2024 5:35am4.1 mmol/L3.5-5.1Potassium LevelOct2024 4:54amOctober 2024 4:54am4.2 mmol/L3.5-5.1Mean Corpuscular Hemoglobin August 25, 2025 10:37amOctober 2024 10:37am28.8 pg26.7-34.0Potassium LevelOctober 2024 5:32pmOctober 2024 5:32pm5.2 mmol/LAbove high normal3.5-5.1Urine Leukocyte EsteraseOctober 2024 7:45pmTRACEAbnormal (applies to non-numeric results)NEGATIVEMean Corpuscular HemoglobinOctober 2024 4:35amOctober 2024 4:35am28.5 pg26.7-34.0Potassium LevelOctober 2024 6:58pmOctober 2024 6:58pm4.8 mmol/L3.5-5.1Potassium Level August 27, 2025 5:20pmOctober 2024 5:20pm5.0 mmol/L3.5-5.1Potassium LevelOctober 2024 4:09amOctober 2024 4:09am5.0 mmol/L3.5-5.1Carbon Dioxide LevelNovember 2024 4:48amNovember 2024 4:48am29.2 mmol/L 21.0-32.0Serum Total ProteinAugust 2024 6:25amAugust 2024 6:25am5.7 g/dLAbnormal (applies to non-numeric results)6.0-8.5CreatinineAugust 2024 6:25amAugust 2024 6:25am1.45 mg/dLAbove high normal0.55-1.02Mean Corpuscular Hemoglobin ConcentAugust 2024 6:25amAugust 2024 6:25am 32.9 g/dL29.9-35.2Blood Urea NitrogenSeptember 2024 8:56amSeptember 2024 8:56am27 mg/dLAbove high normal7-Blood Urea NitrogenSeptember 2024 9:03amSeptember 2024 9:03am32 mg/dLAbove high normal7-Platelet Count July 15, 2025 9:03amSeptember 2024 9:22wg343 k/rL069-565Ovmbvgzrzi August 10, 2025 5:15amOctober 2024 5:15am1.36 mg/dLAbove high normal 0.55-1.02Mean Corpuscular Hemoglobin ConcentOctober 2024 5:15amOctober 2024 5:15am33.6 g/dL29.9-35.2Urine MucusOctober 2024 7:28amNONE SEEN NONE SEENSodium LevelOctober 2024 4:38amOctober 2024 4:89jj836 mmol/H536-197Cyox Corpuscular Hemoglobin ConcentOctober 2024 4:38amOctober 2024 4:38am33.8 g/dL29.9-35.2Sodium LevelOctober 2024 6:41amOctober 2024 6:02mw651 mmol/LBelow low -871Ddlj Corpuscular Hemoglobin ConcentOctober 2024 6:41amOctober 2024 6:41am32.9 g/dL29.9-35.2 Sodium LevelOctober 2024 5:35amOctober 2024 5:88ez635 mmol/R487-854 Sodium LevelOctober 2024 4:54amOctober 2024 4:69me270 mmol/LBelow low -406Ecar Corpuscular Hemoglobin ConcentOctober 2024 10:37am August 25, 2025 10:37am34.6 g/dL29.9-35.2Sodium LevelOctober 2024 5:32pmOctober 2024 5:08au332 mmol/LBelow lower panic -990ICATBLA CALLED TO YECENIA BROOKE RN at 1859Urine MucusOctober 2024 7:45pmNONE SEEN NONE SEENMean Corpuscular Hemoglobin ConcentOctober 2024 4:35amOctober 2024 4:35am33.9 g/dL29.9-35.2Sodium LevelOctober 2024 6:58pmOctober 2024 6:16gv870 mmol/LBelow low anndku043-333Imgkaq LevelOct2024 5:20pmOctober 2024 5:66ee111 mmol/LBelow low qvojrh298-227Ppxwyn Level August 28, 2025 4:09amOctober 2024 4:96pw092 mmol/Q246-765Rhljhrokkv August 29, 2025 4:48amNovember 2024 4:48am1.40 mg/dLAbove high normal 0.55-1.02Albumin (Send Out)June 23, 2025 6:252024 6:25am3.2 g/dL2.9-4.4Estimated GFR ()June 23, 2025 6:25 2025 6:43kj15Cusca low normal>=60 mL/min/1.73m 2Mean Corpuscular VolumeAugust 2024 6:25amAugust 2024 6:25am88.2 fL81.0-99.0Alkaline Phosphatase July 08, 2025 8:56amSeptember 2024 8:56am48 U/D28-038Fbdzcpsa PhosphataseSeptember 2024 9:03amSeptember 2024 9:03am45 U/L34-123 Mean Corpuscular HemoglobinSeptember 2024 9:03amSeptember 2024 9:03am28.8 pg26.0-34.0Estimated GFR ()August 10, 2025 5:15am August 10, 2025 5:07xs06Kzvao low normal>=60 mL/min/1.73m 2Mean Corpuscular VolumeOctober 2024 5:15amOctober 2024 5:15am86.3 fL81.0-99.0Urine NitriteOctober 2024 7:28amNEGATIVENEGATIVEMean Corpuscular VolumeOctober 2024 4:38amOctober 2024 4:38am85.7 fL81.0-99.0Mean Corpuscular VolumeOctober 2024 6:41amOctober 2024 6:41am85.9 fL81.0-99.0Mean Corpuscular VolumeOctober 2024 10:37amOctober 2024 10:37am83.3 fL 81.0-99.0Urine NitriteOctober 2024 7:45pmNEGATIVENEGATIVEMean Corpuscular VolumeOctober 2024 4:35amOctober 2024 4:35am83.9 fL81.0-99.0 Estimated GFR ()August 29, 2025 4:48amNovember 2024 4:60ta50Qizss low normal>=60 mL/min/1.73m 6Keidr-7-TglzowoqmLivdlh 2024 6:25amAugu2024 6:25am0.3 g/dL0.0-0.4Estimated GFR (Non- June 23, 2025 6:25amAugu2024 6:83ot01Nxwfk low normal>=60 mL/min/1.73m 2Monocytes # (Auto)June 23, 2025 6:25amAugu2024 6:25am 0.5 10 3/uL0.3-0.8Calcium LevelSeptember 2024 8:56amSeptember 2024 8:56am8.9 mg/dL8.5-10.2Calcium LevelSeptember 2024 9:03amSeptember 2024 9:03am9.0 mg/dL8.5-10.2Mean Corpuscular Hemoglobin ConcentSeptember 2024 9:03amSeptember 2024 9:03am32.2 g/dL30.5-36.0Estimated GFR (Non- AmericanOct2024 5:15amOctober 2024 5:29up02Esvjs low normal>=60 mL/min/1.73m 2Monocytes # (Auto)August 10, 2025 5:15amOctober 2024 5:15am0.5 10 3/uL0.3-0.8Urine pHOctober 2024 7:28am6.05.0-9.0 Monocytes # (Auto)August 11, 2025 4:38amOctober 2024 4:38am0.6 10 3/uL 0.3-0.8Monocytes # (Auto)August 14, 2025 6:41amOctober 2024 6:41am0.5 10 3/uL0.3-0.8Monocytes # (Auto)August 25, 2025 10:37amOctober 2024 10:37am0.2 10 3/uLBelow low normal0.3-0.8Urine pHOctober 2024 7:45pm5.5 5.0-9.0Monocytes # (Auto)August 26, 2025 4:35amOctober 2024 4:35am0.6 10 3/uL0.3-0.8Estimated GFR (Non- AmericanNov2024 4:48am August 29, 2025 4:59xy06Konbw low normal>=60 mL/min/1.73m 3Lzbzr-9-Viqppyzro June 23, 2025 6:25amAugu2024 6:25am1.0 g/dL0.4-1.0GlobulinAugust 2024 6:25amAugust 2024 6:25am3.3 g/dLMonocytes (%) (Auto)June 23, 2025 6:25amAugu2024 6:25am8.7 %1.7-12.0Anion GapSept2024 8:56amSeptember 2024 8:56am11 mmol/L8-15Anion GapSeptember 2024 9:03amSeptember 2024 9:03am10 mmol/L8-15Mean Corpuscular VolumeSeptember 2024 9:03amSeptember 2024 9:03am89.3 fL80.0-100.0GlobulinOctober 2024 5:15amOctober 2024 5:15am3.2 g/dLMonocytes (%) (Auto)August 10, 2025 5:15amOctober 2024 5:15am8.1 %1.7-12.0Urine ProteinOctober 2024 7:92vd718 mg/dLAbnormal (applies to non-numeric results)NEG/TRACE Monocytes (%) (Auto)August 11, 2025 4:38amOctober 2024 4:38am11.4 % 1.7-12.0Monocytes (%) (Auto)August 14, 2025 6:41amOctober 2024 6:41am 6.7 %1.7-12.0Monocytes (%) (Auto)August 25, 2025 10:37amOctober 2024 10:37am4.1 %1.7-12.0GlobulinOctober 2024 10:37amOctober 2024 10:37am 3.0 g/dLUrine ProteinOctober 2024 7:45pm30 mg/dLAbnormal (applies to non- numeric results)NEG/TRACEMonocytes (%) (Auto)August 26, 2025 4:35amOctober 2024 4:35am11.4 %1.7-12.0GlobulinNovember 2024 4:48amNovember 2024 4:48am2.8 g/dLBeta GlobulinsAugu2024 6:25amAugust 2024 6:25am0.7 g/dL0.7-1.3Glucose LevelAugust 2024 6:25amAugust 2024 6:25am94 mg/bG18-079Jrpm Platelet VolumeAugust 2024 6:25amAugust 2024 6:25am10.2 fL9.5-13.5Estimated GFR (CKD-EPI)July 08, 2025 8:56am July 08, 2025 8:56am31 mL/min/1.73m???Below low normal>=60Estimated Glomerular Filtration Rate (eGFR) [...] reflect actual GFR.Estimated GFR (CKD-EPI)July 15, 2025 9:03amSept2024 9:03am31 mL/min/1.73m???Below low normal>=60 Estimated Glomerular Filtration Rate (eGFR) is calculated using the 2020 CKD-EPI creatinine equation. This equation utilizes serum creatinine, sex, and age as parameters. The creatinine assay has traceable calibration to isotope dilution- mass spectrometry. Refer to KDIGO guidelines for clinical interpretation. In patients with unstable renal function, e.g. those with acute kidney injury, the eGFRmay not accurately reflect actual GFR.Red Blood CountSeptember 2024 9:03amSeptember 2024 9:03am3.09 m/uLBelow low normal3.90-5.20Glucose Level August 10, 2025 5:15amOctober 2024 5:23vh815 mg/dLAbove high normal 74-106Mean Platelet VolumeOct2024 5:15amOctober 2024 5:15am9.9 fL9.5-13.5Urine RBCOctober 2024 7:78au21-14 #/HPFAbnormal (applies to non- numeric results)0-2Mean Platelet VolumeOctober 2024 4:38amOctober 2024 4:38am9.8 fL9.5-13.5Mean Platelet VolumeOctober 2024 6:41amOctober 2024 6:41am10.0 fL9.5-13.5Mean Platelet VolumeOctober 2024 10:37am August 25, 2025 10:37am10.3 fL9.5-13.5Urine RBCOctober 2024 7:81ee6-76 #/HPFAbnormal (applies to non-numeric results)0-2Mean Platelet VolumeOctober 2024 4:35amOctober 2024 4:35am10.3 fL9.5-13.5Glucose LevelNov2024 4:48amNovember 2024 4:48am87 mg/xO78-374Jyrff GlobulinsAugu2024 6:25amAugu2024 6:25am0.5 g/dL0.4-1.8Potassium LevelAugust 2024 6:25amA2024 6:25am4.3 mmol/L3.5-5.1Neutrophils # (Auto) June 23, 2025 6:25amAugu2024 6:25am4.1 10 3/uL1.4-6.5Hematocrit July 15, 2025 9:03amSeptember 2024 9:03am27.6 %Below low normal 36.0-46.0Potassium LevelOctober 2024 5:15amOctober 2024 5:15am3.8 mmol/L3.5-5.1Neutrophils # (Auto)August 10, 2025 5:15amOctober 2024 5:15am4.6 10 3/uL1.4-6.5Urine Specific GravityOctober 2024 7:28am1.010 1.005-1.025Neutrophils # (Auto)August 11, 2025 4:38amOctober 2024 4:38am3.4 10 3/uL1.4-6.5Neutrophils # (Auto)August 14, 2025 6:41amOctober 2024 6:41am5.6 10 3/uL1.4-6.5Neutrophils # (Auto)August 25, 2025 10:37amOctober 2024 10:37am3.7 10 3/uL1.4-6.5Urine Specific GravityOctober 2024 7:45pm<=1.005Abnormal (applies to non-numeric results)1.005-1.025 Neutrophils # (Auto)August 26, 2025 4:35amOctober 2024 4:35am3.9 10 3/uL1.4-6.5Potassium LevelAugember 2024 4:48amNovember 2024 4:48am4.6 mmol/L3.5-5.1Sodium LevelAugust 2024 6:25amAugust 2024 6:83qm995 mmol/O078-517Exyetnhidue (%) (Auto)June 23, 2025 6:25amAugust 2024 6:25am73.1 %43.0-75.0Monocytes (%) (Auto)July 15, 2025 9:03amSeptember 2024 9:03am10.4 %Sodium LevelOctober 2024 5:15amOctober 2024 5:89im519 mmol/G821-652Izjprdnwqdu (%) (Auto)August 10, 2025 5:15amOctober 2024 5:15am74.4 %43.0-75.0Urine Squamous Epithelial CellsOctober 2024 7:28amFEW #/LPFAbnormal (applies to non-numeric results)NONE/RARE Neutrophils (%) (Auto)August 11, 2025 4:38amOctober 2024 4:38am67.4 % 43.0-75.0Neutrophils (%) (Auto)August 14, 2025 6:41amOctober 2024 6:41am80.6 %Above high .0-75.0Neutrophils (%) (Auto)August 25, 2025 10:37amOctober 2024 10:37am80.3 %Above high ujywph09.0-75.0Urine Squamous Epithelial CellsOctober 2024 7:45pmRARE #/LPFNONE/RARENeutrophils (%) (Auto)August 26, 2025 4:35amOctober 2024 4:35am69.4 %43.0-75.0Sodium LevelNov2024 4:48amNovember 2024 4:02mt673 mmol/F770-450Qmkrt BilirubinAugust 2024 6:25amAugust 2024 6:25am0.5 mg/dL0.2-1.0 Platelet CountAugust 2024 6:25amAugust 2024 6:24et377 10 3/bK462-669 Corrected White Blood CountSeptember 2024 9:03amSeptember 2024 9:03am6.28 k/uL3.70-11.00Total BilirubinOctober 2024 5:15amOctober 2024 5:15am0.4 mg/dL0.2-1.0Platelet CountOctober 2024 5:15amOctober 2024 5:37ew080 10 3/wN157-711Dblva UrobilinogenOctober 2024 7:28am0.2 EU/dL0.2-1.0Platelet CountOctober 2024 4:38amOctober 2024 4:56su306 10 3/oO159-524Gvrwujla CountOctober 2024 6:41amOctober 2024 6:41am 276 10 3/lG158-673Otkptrea CountOctober 2024 10:37amOctober 2024 10:04pk545 10 3/oW948-707Lhlsq BilirubinOctober 2024 10:37amOctober 2024 10:37am0.4 mg/dL0.2-1.0Urine Transitional Epithelial CellsOctober 2024 7:45pmRARE #/LPFAbnormal (applies to non-numeric results)NONE SEENPlatelet CountOctober 2024 4:35amOctober 2024 4:14df824 10 3/eB808-444Iijhb BilirubinNov2024 4:48amNovember 2024 4:48am0.6 mg/dL0.2-1.0Total ProteinAugust 2024 6:25amAugust 2024 6:25am6.5 g/dL6.4-8.2Red Blood CountAugust 2024 6:25amAugust 2024 6:25am3.21 10 6/uLBelow low normal4.20-5.40Nucleated RBC Relative Count (auto)July 15, 2025 9:03am July 15, 2025 9:03am0.0 /100{WBC}Total ProteinOctober 2024 5:15am August 10, 2025 5:15am6.3 g/dLBelow low normal6.4-8.2Red Blood CountOctober 2024 5:15amOctober 2024 5:15am3.00 10 6/uLBelow low normal4.20-5.40 Urine WBCOctober 2024 7:35gb8-7 #/HPFAbnormal (applies to non-numeric results)NONE SEENRed Blood CountOctober 2024 4:38amOctober 2024 4:38am2.59 10 6/uLBelow low normal4.20-5.40Red Blood CountOctober 2024 6:41amOctober 2024 6:41am2.90 10 6/uLBelow low normal4.20-5.40Red Blood CountOctober 2024 10:37amOctober 2024 10:37am2.88 10 6/uLBelow low normal4.20-5.40Total ProteinOctober 2024 10:37amOctober 2024 10:37am 6.2 g/dLBelow low normal6.4-8.2Urine UrobilinogenOctober 2024 7:45pm0.2 EU/dL0.2-1.0Red Blood CountOctober 2024 4:35amOctober 2024 4:35am 2.67 10 6/uLBelow low normal4.20-5.40Total ProteinNov2024 4:48am August 29, 2025 4:48am5.4 g/dLBelow low normal6.4-8.2Red Cell Distribution WidthAugust 2024 6:25amAugust 2024 6:25am13.8 %11.0-15.0Red Cell Distribution WidthSeptember 2024 9:03amSeptember 2024 9:03am13.5 % 11.5-15.0Red Cell Distribution WidthOctober 2024 5:15amOctober 2024 5:15am13.2 %11.0-15.0Red Cell Distribution WidthOctober 2024 4:38amOctober 2024 4:38am13.4 %11.0-15.0Red Cell Distribution WidthOctober 2024 6:41amOctober 2024 6:41am13.5 %11.0-15.0Red Cell Distribution WidthOctober 2024 10:37amOctober 2024 10:37am12.8 %11.0-15.0Urine WBCOctober 2024 7:69el2-6 #/HPFAbnormal (applies to non-numeric results)NONE SEENRed Cell Distribution WidthOctober 2024 4:35amOctober 2024 4:35am13.0 % 11.0-15.0Corrected White Blood CountAugust 2024 6:25amAugust 2024 6:25am5.6 10 3/uL4.0-11.0Mean Platelet VolumeSept2024 9:03am July 15, 2025 9:03am9.9 fL9.0-12.7Corrected White Blood CountOctober 2024 5:15amOctober 2024 5:15am6.2 10 3/uL4.0-11.0Corrected White Blood CountOctober 2024 4:38amOctober 2024 4:38am5.0 10 3/uL4.0-11.0 Corrected White Blood CountOctober 2024 6:41amOctober 2024 6:41am6.9 10 3/uL4.0-11.0Corrected White Blood CountOctober 2024 10:37amOctober 2024 10:37am4.6 10 3/uL4.0-11.0Urine YeastOctober 2024 7:45pmSEEN Abnormal (applies to non-numeric results)NONE SEENCorrected White Blood Count August 26, 2025 4:35amOctober 2024 4:35am5.5 10 3/uL4.0-11.0 Differential CommentSept2024 9:03amSeptember 2024 9:03amAuto Immature Granulocyte # (Auto)July 15, 2025 9:03amSept2024 9:03am0.03 k/uL<0.10Immature Granulocyte % (Auto)July 15, 2025 9:03am July 15, 2025 9:03am0.5 % Diagnostic Imaging Reports Author Juan Jose Menard [facility] 2024 12:26pmReport Dictated Date/TimeDictated ByStatusRadiology ReportOctober 2024 12:26pm Olivia Brown [facility] [place] [address] [place] [id number] Ultrasound Report Signed Patient: Maggie Whaley MR#: [id number] : 1940 Acct:[id number] Age/Sex: 84 / F ADM Date: 5 Loc: Room: Type: [facility] Attending Dr: Kaia Krishna HOME CARE MANAGER-C Ordering Provider: Kaia Krishna APRN Date of [...] Menard M.D. 08/19/2025 12:27 PM Dictation Location: [facility] Tech: Darcy Kraft Transcribed By: [facility] 08/19/251226 Dictated By: Juan Jose Menard MD 08/19/251225 Signed By: <Electronically signed by Juan Jose Menard MD in OV> 08/19/251226 Author Juan Jose Menard [facility] 2024 12:27pmReport Dictated Date/TimeDictated ByStatusRadiology ReportOctober 2024 12:27pm Olivia Brown [facility] [place] [address] [place] [address] Ultrasound Report Signed Patient: Maggie Whaley MR#: [id number] : 1940 Acct:[id number] Age/Sex: 84 / F ADM Date: 5 Loc: Room: Type: [facility] Attending Dr: Kaia Krishna HOME CARE MANAGER-C Ordering Provider: Kaia Krishna APRN Date of [...] cm throughout. There was some varicosities and ux design lead sutures also identified which all measure less [...] Menard M.D. 08/19/2025 12:30 PM [facility]ictation [facility] Tech: Darcy Swapnil Transcribed By: LAURA 08/19/25 1230 Dictated By: Juan Jose Menard MD 08/19/25 1227 Signed By: <Electronically signed by Juan Jose Menard MD in OV> 08/19/25 1230 Author Epifanio Lyon [facility] HospitalAuthoredNovember 2024 12:41pmReport Dictated Date/TimeDictated ByStatusRadiology ReportNovember 2024 12:41pm Epifanio Lyon Jr DOcomplete[facility] [place] [address] [place], [place] [id number] XRay Report Signed Patient: Maggie Whaley MR#: [id number] : 1940 Acct:[id number] Age/Sex: 85 / F ADM Date: 5 Loc: [facility] Room: Type: [facility] Attending Dr: Kelly Pickard SWIMMING COACH Copies to: Kelly Pickard APRN~ Ordering Provider: Kelly Pickard APRN Date of Service: 09/19/25 XR/XR chest 2V*: COUGH Chest 2 views CLINICAL HISTORY: Cough with the body aches chills for 2 days. Fever. COMPARISON: Chest 02/12/2025. FINDINGS: Heart normal in size. Left lower lobe airspace disease with small bilateral pleural effusions which are new compared to the prior study. No pneumothorax or free air. XR/XR chest 2V* IMPRESSION: LEFT LOWER LOBE AIRSPACE DISEASE WITH SMALL BILATERAL PLEURAL EFFUSIONS WHICH ARE NEW COMPARED TO THE PRIOR STUDY. Impression dictated by: Epifanio Lyon Jr., D.O. 09/19/2025 12:42 PM Dictation Location: [facility]--18 Transcribed By: LAURA 09/19/25 1242 Dictated By: Epifanio Lyon Jr, DO 09/19/25 1241 Signed By: <Electronically signed by Epifanio Lyon Jr, DO in OV> 09/19/25 1242 Vital Signs Vital Reading Result Reference Range Collection Date/Time Height 65.5 [in_i] July 21, 2025 2:03brWovnvz49.45 kgSept2024 2:53pmHeart Rate76 /ddr63-462Onsjqvjqo 2024 2:53pmRespiratory rate12 /jja03-30Jznmvxjcg 2024 2:53pmBP Edowpbae370 mm[Hg]100-140September 2024 2:53pmBP Zbzjsvczx50 mm[Hg]60-100September 2024 2:53pmBMI (Body Mass Index)31.9 kg/p4Qaukaaiim 2024 2:35eaJllhjf02 [in_i]August 04, 2025 9:44amWeight 88.45 kgOctober 2024 9:44amBody Ccqfqhuzwpd63.6 [degF]97.6-99.0Oct2024 9:44amHeart Rate69 /itq03-877Yytdfbl 7th, 2025 9:44amOxygen saturation by Pulse ocukxfau57 %95-100Oct2024 9:44amBP Lgkmxxed094 mm[Hg]100-140 August 04, 2025 9:44amBP Mftbxeadx03 mm[Hg]60-100Oct2024 9:44amBMI (Body Mass Index)34.5 kg/c7Cyplwom 2024 9:90scZwfpkd95 [in_i]August 21, 2025 10:93zuLtdvbj36.90 kgOctober 2024 10:43amHeart Rate62 /sqm37-291 August 21, 2025 10:43amRespiratory rate14 /csp85-92Srmompl 2024 10:43am Oxygen saturation by Pulse weofrxqa55 %95-100October 2024 10:43amBP Cirzebed753 mm[Hg]100-140Oct2024 10:43amBP Ycnuzfkvr27 mm[Hg]60-100 August 21, 2025 10:43amBMI (Body Mass Index)34.7 kg/n3Pvogkzb 2024 10:85rpIkeshg53 [in_i]September 16, 2025 9:10iaXooxwk58.62 kgNovember 2024 9:58amHeart Rate70 /fsu11-354Pxenwbjy 2024 9:58amRespiratory rate14 /qik20-44Ktmunmyf 2024 9:58amOxygen saturation by Pulse eoofmybf01 %95-100 September 16, 2025 9:58amBP Drnnwozn116 mm[Hg]100-140September 16, 2025 9:58am BP Jdpwgxlqk81 mm[Hg]60-100September 16, 2025 9:58amBMI (Body Mass Index)35.7 kg/b0Afpxecim2024 9:18svQrzerw66 [in_i]September 19, 2025 11:21amWeight 89.04 kgFormerly [facility]20[facility] 11:21amBody Anhssynyelw940.4 [degF]97.6-99.0September 19, 2025 11:21amHeart Rate80 /cjo18-884UrelueuaSeptember 19, 2025 11:21amRespiratory rate19 /ibt50-37PtbzsfcvSeptember 19, 2025 11:21amOxygen saturation by Pulse oximetry 97 %95-100September 19, 2025 11:21amBP Rfqfhquc821 mm[Hg]100-140September 19, 2025 11:24amBP Cenumlksp59 mm[Hg]60-100Formerly [facility]2024 11:24amBMI (Body Mass Index)32.6 kg/i1Kcjbdqlg2024 11:21am Advance Directives Advance Directive Response Recorded Date/ Time Advance Directives No March 07 12:03pm Insurance Providers Guarantor Kg Deras Address [address] [phone] Info.Home Phone: Coverage Status Update:2025 Payer Group Member ID Coverage Type Subscriber Relationship to Subscriber Effective Date Expiration Date Medicare [id number] Evans , M Id: [id number] [address] [address] Home Phone: SelfMedicare Outpatient Id: Cori [id number] Encounters Encounter Location(s) Arrival/Admit Date Discharge/Departure Date Discharge/Departure Disposition Provider(s) Non-patient / Non-visit -[facility] ugust 2024 7:25am Nathan Ball , DONon-patient / Ciq-zjzsw-Xlrcv [facility]August 2024 9:00amBenDeangelo Fields-patient / Gkd-vvjgr-Puisy [facility]September 2024 9:56amFanny Long APRN NP-CNon-patient / Ads-jfusv-Wrppr [facility]September 2024 10:03amViveDIANA Marleyeparted Physician/Provider Office Visit-[facility] 2024 3:32pmSeptember 2024 4:33pmDischarged to home care or self care (routine discharge)DANIEL Pradoeparted Physician/Provider [facility]- [facility]24 10:24amOctober 2024 11:32am Discharged to home care or self care (routine discharge)Kaia Krishna APRN Non-patient / Yso-noibb-Eemfp [facility]October 2024 6:15am Deangelo Eaton-patient / Efu-txrlf-Rzmbi [facility] October 2024 5:38amKg Guaman-patient / [facility]ee[facility] 1:26pmGhislaine Thurston-patient / Ddn-ssfqt-Kvxky [facility]October 2024 7:41amOlivia Amador-patient / Pxp-jdwgt-Olxqn [facility]October 2024 6:35am Kg Guaman-patient / Jiw-ykmnk-Kifxl [facility]October 2024 5:54amKg Guaman-patient / Gtk-nolqm-[facility] 2024 9:42amBrijesh Thurstonparted Clinical- [facility]October 2024 7:55amOctober 2024 7:56am Discharged to home care or self care (routine discharge)Kaia Krishna APRN Departed Physician/Provider [facility] 11:39amOctober 2024 1:00pmDischarged to home care or self care (routine discharge)Deangelo Prado-patient / Pxs-dnulp-Bucad [facility]October 2024 11:37amBenDeangelo Fields-patient / Hid-bagrh-Iynpj [facility]October 2024 5:35Bob Donovan MD Non-patient / Vpf-lqdzc-Owyvs [facility]October 2024 4:54am Matheus Garcia-patient / Kay-bwtxs-Ldtpt [facility]October 2024 5:09Matheus Priest-patient / Mdw-hpnuo-Jljrz [facility]November 2024 5:48Matheus Priest-patient / Qrg-filig-Lic [facility] 2024 11:59pmNathan Bateman DO Non-patient / Dij-ioeik-Xtv [facility] 2024 11:59pm Eveline Pradoed Physician/Provider Office Visit-[facility] 20[facility] 11:06amDischarged to home care or self care (routine discharge)Radha Prado Physician/Provider Office Visit-[facility] 2024 10:58am September 19, 2025 1:02pmDischarged to home care or self care (routine discharge)Kg Murguia APRNRegistered Clinical-[facility] 2024 12:09pmKg Murguia SWIMMING COACH Recent Diagnosis Onset Date Admit Date ASHD (arteriosclerotic heart disease) Unknown July 21, 2025 3:32pm Chronic kidney disease Unknown July 21, 2025 3:32pm Chronic venous insufficiency Unknown Jun 3:32pm MGUS (monoclonal gammopathy of unknown significance) Unknown July 21, 2025 3:32pm Acute on chronic heart failu re with preserved ejection fraction (HFpEF) Unknown July 21, 2025 3:32pm Bilateral lower extremity edema Unknown August 04, 2025 10:24am Hemosiderin pigmentation of skin Unknown August 04, 2025 10:24am Skin tenderness Unknown August 04 10:24am Symptomatic varicose veins o f both lower extremities Unknown August 04, 2025 10:24am Anemia Unknown August 21 11:39am ASHD (arteriosclerotic heart disease) Unknown August 21, 2025 11:39am Chronic bronchitis Unknown August 21, 2025 11:39am Chronic kidney disease Unknown July 302024 11:39am Chronic venous insufficiency Unknown Jul 11:39am Essential hypertension Unknown July 302024 11:39am Hypercholesterolemia Unknown July 11:39am MGUS (monoclonal gammopathy of unknown significance) Unknown August 21, 2025 11:39am Acute respiratory failure with hypoxemia Unknown August 21, 2025 11:39am Requires continuous at home supplemental oxygen Unknown August 21, 2025 11:39am Acute on chronic heart failu re with preserved ejection fraction (HFpEF) Unknown August 21, 2025 11:39am Anemia Unknown September 16, 2 025 9:52am ASHD (arteriosclerotic heart disease) Unknown September 16, 2025 9:52am Chronic bronchitis Unknown August 9:52am Chronic kidney disease Unknown September 16, 2025 9:52am Chronic venous insufficiency Unknown Aug 9:52am Elevated serum immunoglobuli n free light chain level Unknown September 16, 2025 9:52am Essential hypertension Unknown September 16, 2025 9:52am Hypercholesterolemia Unknown September 162024 9:52am Hyponatremia Unknown September 16, 2 025 9:52am MGUS (monoclonal gammopathy of unknown significance) Unknown September 16, 2025 9:52am Acute on chronic heart failu re with preserved ejection fraction (HFpEF) Unknown September 16, 2025 9:52am Assessments Diagnosis Onset Date Resolution Status Admit Date ASHD (arteriosclerotic heart disease) acuteSeptember 2024 3:32pmChronic kidney diseaseacuteSeptember 2024 3:32pmChronic venous insufficiencyacuteSeptember 2024 3:32pmMGUS (monoclonal gammopathy of unknown significance)acuteSeptember 2024 3:32pm Acute on chronic heart failure with preserved ejection fraction (HFpEF) noneactiveSeptember 23rd, 2025 3:32pmBilateral lower extremity edemadeleted August 04, 2025 10:24amHemosiderin pigmentation of skindeletedH[facility] 2024 10:24amSkin tendernessdeletedOctuofl health - jewish hospital 2024 10:24amSymptomatic varicose veins of both lower extremitiesdeletedHuron Valley-Sinai Hospital 2024 10:24amAnemiaacute August 21, 2025 11:39amASHD (arteriosclerotic heart disease)acuteOctuofl health - jewish hospital 2024 11:39amChronic bronchitisacuteOctuofl health - jewish hospital 2024 11:39amChronic kidney diseaseacuteOctuofl health - jewish hospital 2024 11:39amChronic venous insufficiencyacute August 21, 2025 11:39amEssential hypertensionacuteOctuofl health - jewish hospital 2024 11:39am HypercholesterolemiaacuteHuron Valley-Sinai Hospital 2024 11:39amMGUS (monoclonal gammopathy of unknown significance)acuteHuron Valley-[facility]inai Hospital 2024 11:39amAcute respiratory failure with hypoxemiadeletedHuron Valley-Sinai Hospital 2024 11:39amRequires continuous at home supplemental oxygendeletedHuron Valley-Sinai Hospital 2024 11:39amAcute on chronic heart failure with preserved ejection fraction (HFpEF)noneactiveHuron Valley-S[facility] Hospital 2024 11:39amAnemiaacuteNov2024 9:52amASHD (arteriosclerotic heart disease)acuteNov2024 9:52amChronic bronchitisacuteFormerly [facility]2024 9:52amChronic kidney diseaseacuteFormerly [facility]2024 9:52amChronic venous insufficiencyacuteFormerly [facility]2024 9:52amElevated serum immunoglobulin free light chain levelacuteFormerly [facility]2024 9:52amEssential hypertensionacute September 16, 2025 9:52amHypercholesterolemiaacuteNoveer 2024 9:52am HyponatremiaacuteNov2024 9:52amMGUS (monoclonal gammopathy of unknown significance)acuteFormerly [facility]2024 9:52amAcute on chronic heart failure with preserved ejection fraction (HFpEF)noneactiveFormerly [facility]2024 9:52am Plan of Treatment Author Nathan Bateman [facility] HospitalAuthoredSeptember 2024 3:56pmI have instructed this patient on a low salt diet, exercise and daily weights. I have instructed them to notify the office for any on any unexpected weight gain > 3lbs and /or increased dyspneaon exertion, difficulty breathing during sleep, worsening lower extremity swelling, chest pain or lightheadedness. I have reviewed the GDMT with beta blockers, BRAD/ARB or ARNI, MRA and a SGLT-2i. [facility] w/ PCI/stent LAD, RCA (Feb, 2023) Echo [...] risks for recurrent events. - [facility] w/ PCI/stent LAD, RCA (Feb, 2023) [...] SPEP, IF, FLC revealed small M-spike, elevated Askov light chain and elevated K/L ratio Referred back to Hematology Author Kaia Krishna [facility] HospitalAuthoredOctober 2024 1:45pmThis patient reports achiness, heaviness, leg fatigue, itching, [...] this plan. Denies questions. Author Nathan Bateman [facility] HospitalAuthoredNovember 2024 9:36pmI have instructed this patient on a low salt diet, exercise and daily weights. I have instructed them to notify the office for any on any unexpected weight gain > 3lbs and /or increased dyspneaon exertion, difficulty breathing during sleep, worsening lower extremity swelling, chest pain or lightheadedness. I have reviewed the GDMT with beta blockers, BRAD/ARB or ARNI, MRA and a SGLT-2i. [facility] w/ PCI/stent LAD, RCA (Feb, 2023) Echo w/ LVEF 60%, ELY, normal RV size/function, RVSP - 01/2024 Echo: LVEF 60-65%, normal RV size/function, mild-mod MR - 02/2025 She does have CKD, likely due to permissive azotemia from diuretic use Doubled Furosemide to 80mg q am and continue w/ 40mg q afternoon - Metolazone 5mg being held for now to avoid further azotemia and electrolyte imbalance Continue Valsartan without interruption I have instructed this patient to consume [...] due to RHF secondary to pulmonary hypertension This patient is stable without activity related chest pain, dyspnea or lightheadedness. I instructed them to continue exercise at least 3x weekly and consume a low salt, low fat, high fiber diet. I instructed them to continue secondary prevention measures in reducing risks for recurrent events. - [facility] w/ PCI/stent LAD, RCA (Feb, 2023) - Echo w/ LVEF 60%, ELY, normal RV size/function, RVSP - 01/2024, - Echo: LVEF 60-65%, normal RV size/function, mild-mod MR - 02/2025 Continue ASA and Rosuvastatin without interruption No ER/hosp visits for AE COPD EDEL as needed LABA/ICS substituted for LABA/LAMA Added Spiriva qd UTD w/ vaccinations I have instructed this patient to avoid [...] SPEP, IF, FLC revealed small M-spike, elevated Askov light chain and elevated K/L ratio Referred back to Hematology Multifactorial Fe, FA and B12 normal - 06/2025 No s/s GIB MGUS present f/u hematology I have instructed this patient on a low fat, high fiber diet and exercise. I have discussed the primary and secondary prevention benefits attributed to lowering LDL cholesterol. I have also discussed the medical treatment of elevated cholesterol, which is based on the 10 year ASCVD risk. Continue Rosuvastatin without interruption Secondary to excess free water intake and aggressive diuresis. Instructed to limit fluid intake to 48oz daily Reduced Lasix to 80mg q am and 40mg q pm d/c'd Metolazone Daily weights, salt restriction, fluid restriction Check BMP, Osmolality and Urine Na MGUS Referred to Hematology in June Author Nathan Bateman [facility] HospitalAuthoredOctober 2024 9:37pmThis patient is stable without activity related chest pain, dyspnea or lightheadedness. I instructed them to continue exercise at least 3x weekly and consume a low salt, low fat, high fiber diet. I instructed them to continue secondary prevention measures in reducing risks for recurrent events. - [facility] w/ PCI/stent LAD, RCA (Feb, 2023) - Echo w/ LVEF 60%, EYL, normal RV size/function, RVSP 41 - 01/2024, [...] BRAD/ARB or ARNI, MRA and a SGLT-2i. [facility] w/ PCI/stent LAD, RCA (Feb, 2023) Echo [...] SPEP, IF, FLC revealed small M-spike, elevated Askov light chain and elevated K/L ratio Referred [...] 2L/min per [place] Maintain Psats > 90% Author Kelly Pickard [facility] HospitalAuthoredNovtucson heart hospital 2024 12:48pm Chest x-ray noted: LEFT LOWER LOBE AIRSPACE DISEASE WITH SMALL BILATERAL PLEURAL EFFUSIONS WHICH ARE NEW COMPARED TO THE PRIOR STUDY. Solitario is to treat with Future Tests Future scheduled test information is unavailable Pending Tests Test Name Ordered Date Scheduled Date XR chest 2V* September 19, 2025 12:05pm Future Visits Future appointment information is unavailable Future Procedures Procedure Name Ordered Date Scheduled Date Basic Metabolic Panel September 16, 2025 10:46a m Complete Blood Count Auto DiffNovtucson heart hospital 2024 10:46amOsmolalityNovtucson heart hospital 2024 10:49amSodium, Urine (Random)September 16, 2025 10:49amOsmolality, UrineKing'S Daughters [facility] 2024 10:49amDisability PlacardOctuofl health - jewish hospital 2024 11:45am Basic Metabolic PanelOctuofl health - jew[facility] hospital 2024 4:16pmComplete Blood Count Auto Diff August 21, 2025 4:18pmComplete Pulmonary FunctionOctuofl health - jewish hospital 2024 4:24pm Tylenol 500 MG TabletFormerly [facility]2024 10:58am Future Medications Future medication information is unavailable Patient Instructions Patient instructions are unavailable
--- NOTE | 2025-09-19 13:41 | ECG_ITS ---
[facility] Test Date: 2025-09-19 Pat Name: LASHAUN JOAQUIN Department: Room: - Gender: Female Valve Fitter: : 1940 Requested By: [id number] Order Number: [id number] Reading MD: MASSIEL STEPHENSON M.D. Measurements Intervals [place] Rate: 86 P: 90 PA: 158 QRS: 66 QRSD: 80 T: 49 QT: 346 QTc: 389 Interpretive Statements 1100 Sinus rhythm 4068 Nonspecific Twave abnormality 9130 borderline ECG Compared to ECG 08/25/2025 18:28:50 No significant changes Electronically Signed On 09-20-2025 20:25:46 EST by MASSIEL STEPHENSON M.D.
--- NOTE | 2025-09-19 13:51 | XR_ITS ---
The [address] [address] Patient Name: LASHAUN OJAQUIN MRN: [id number] date: 1940 Sex: F Assigned Patient Location: ED.MAIN Current Patient Location: ED.MAIN Accession/Order Number: [id number] Exam Date: 09/19/2025 14:45 Report Date: 09/19/2025 14:55 At the request of: JUAN SMART Procedure: XR chest 2V Chest 2 views CLINICAL HISTORY: Cough COMPARISON: Chest 08/25/2025 FINDINGS: Heart appears normal in size. Vascular congestion/interstitial changes left lower lobe airspace disease and small left pleural effusion which has mildly progressed since the prior study. No pneumothorax or free air. XR/XR chest 2V IMPRESSION: WORSENING LEFT LOWER LOBE AIRSPACE DISEASE AND PLEURAL EFFUSION WHEN COMPARED TO THE PRIOR STUDY. Impression dictated by: Epifanio Lyon Jr., D.OManuel 09/19/2025 2:55 PM Dictation Location: [place] Electronically authenticated by: [id number] Y Date: 09/19/2025 14:55
--- NOTE | 2025-09-19 13:56 | ED.GENADUL1 ---
HPI HPI - General Adult General Chief complaint: Fever Stated complaint: pneumonia symptoms Time Seen by Provider: 09/19/25 13:40 Source: patient and family Mode of arrival: walk-in Limitations: no limitations History of Present Illness HPI narrative: Patient is an 85 year old female who presents to the ED at the recommendation of urgent care for evaluation of fever that was noticed today by urgent care. Patient is accompanied by daughter who assists with history. Patient has been having medical issues since July, currently using oxygen at night and taking lasix. Daughter states they have home health to assist and patient has been doing well. She started to feel ill on and daughter noticed a fever of 100.4 F at home today. She gave tylenol and the patient was 101.4F at urgent care. They performed a chest xray at urgent care showing pneumonia per daughter and she was sent to the ED for IV antibiotics. Patient denies chest pain, shortness of breath, abdominal pain, nausea or vomiting. She has not had any urinary symptoms except frequency she attributes to the lasix. She reports a mild cough with no sputum production. Related Data Home Medications ?Medication ?Instructions ?Recorded ?Confirmed clopidogrel 75 mg tablet 75 mg PO DAILY 07/27/23 09/19/25 rosuvastatin 40 mg tablet 40 mg PO DAILY 02/18/24 09/19/25 pantoprazole 40 mg tablet,delayed 40 mg PO .QD 08/10/25 09/19/25 release umeclidinium 62.5 mcg-vilanterol 1 inh inhalation Q24H 08/10/25 08/26/25 25 mcg/actuation powdr for inhalation (Anoro Ellipta) valsartan 80 mg tablet 80 mg PO .QD 08/10/25 09/19/25 nifedipine 30 mg tablet,extended mg PO 09/19/25 release 24 hr tiotropium bromide 2.5 inhalation 09/19/25 mcg/actuation mist for inhalation (Spiriva Respimat) Previous Rx's ?Medication ?Instructions ?Recorded budesonide-formoterol HFA 160 2 inh inhalation BID #10.2 grams 08/16/25 mcg-4.5 mcg/actuation aerosol inhaler (Symbicort) metolazone 5 mg tablet 5 mg PO DAILY PRN leg 08/16/25 swelling/weight gain #30 tabs acetaminophen 325 mg tablet 650 mg (2 x 325 mg) PO Q6H PRN 08/29/25 (Tylenol) Pain or fever #0 tabs alprazolam 0.25 mg tablet 0.25 mg PO TID PRN anxiety 6 days 08/29/25 #18 tabs calcium carbonate 500 mg (2.5 x 200 mg calcium (500 08/29/25 mg)) PO TID PRN Indigestion #0 tabs cefuroxime axetil 250 mg tablet 250 mg PO BID 4 days #0 tabs 08/29/25 furosemide 40 mg tablet 40 mg PO BID #0 tabs 08/29/25 gabapentin 100 mg capsule 100 mg PO Q12H 6 days #12 caps 08/29/25 polyethylene glycol 3350 17 gram 17 g PO QD PRN Constipation #0 ea 08/29/25 oral powder packet sennosides 8.6 mg-docusate sodium 2 tab PO QD PRN constipation #0 08/29/25 50 mg tablet tabs temazepam 15 mg capsule (Restoril) 15 mg PO .hs PRN sleep 6 days #6 08/29/25 caps tramadol 50 mg tablet 50 mg PO Q6H PRN Pain 6 days #30 08/29/25 tabs albuterol sulfate 90 mcg/actuation 2 inh inhalation Q4H PRN shortness 09/19/25 aerosol inhaler of breath or wheezing #8.5 grams levofloxacin 750 mg tablet 750 mg PO Q48H 7 days #4 tabs 09/19/25 Allergies Allergy/AdvReac Type Severity Reaction Status Date / Time azithromycin Allergy Severe Unknown Verified 08/25/25 17:44 amlodipine Allergy Unknown Verified 08/25/25 17:44 doxycycline Allergy Unknown Verified 08/25/25 17:44 duloxetine (From Cymbalta) Allergy Unknown Verified 08/25/25 17:44 sulfamethoxazole (From Allergy Unknown Verified 08/25/25 17:44 Bactrim) tetanus and diphtheria Allergy Unknown Verified 08/25/25 17:44 toxoids trimethoprim (From Bactrim) Allergy Unknown Verified 08/25/25 17:44 codeine AdvReac Severe Anxiety Verified 08/25/25 17:44 Opioid HPI Opioid Management Most Recent Opioid Data: Last Pain Scale 0 09/16/25, 13:24 Last Pain Intensity 0 09/16/25, 13:24 Last ORT Total Score 0 08/25/25, 20:01 Last ORT Risk Category Low Risk 08/25/25, 20:01 Review of Systems ROS Constitutional Reports: fever; Denies: chills Ears, nose, mouth, and throat Denies: throat pain or neck pain Cardiovascular Denies: chest pain Respiratory Reports: cough; Denies: shortness of breath or wheezing Gastrointestinal Denies: abdominal pain, nausea or vomiting Genitourinary Reports: urinary frequency Musculoskeletal Denies: back pain or neck pain Integumentary/Breast Denies: rash Hematologic/Lymphatic Denies: easy bruising or easy bleeding [facility] Medical History Chronic heart failure with preserved ejection fraction (HFpEF) ?I50.32 - Chronic diastolic (congestive) heart failure (ICD-10) Peripheral neuropathy ?G62.9 - Polyneuropathy, unspecified (ICD-10) Peripheral edema ?R60.0 - Localized edema (ICD-10) HTN (hypertension) ?I10 - Essential (primary) hypertension (ICD-10) GERD (gastroesophageal reflux disease) ?K21.9 - Gastro-esophageal reflux disease without esophagitis (ICD-10) Pneumonia due to COVID-19 virus ?U07.1 - COVID-19 (ICD-10) ?J12.82 - Pneumonia due to coronavirus disease 2019 (ICD-10) COVID-19 ?U07.1 - COVID-19 (ICD-10) Obesity ?E66.9 - Obesity, unspecified (ICD-10) Coronary artery disease ?I25.10 - Atherosclerotic heart disease of [place] coronary artery without angina pectoris (ICD-10) Surgical History H/O: hysterectomy ?Z90.710 - Acquired absence of both cervix and uterus (ICD-10) Stented coronary artery ?Z95.5 - Presence of coronary angioplasty implant and graft (ICD-10) Family History Brother Family history of diabetes mellitus Family history of cancer Sister Family history of cancer Social History Within the past year, how often did you have a drink containing alcohol: never Within the past year, how often did you have six or more drinks on one occasion: never Score interpretation: A score less than 3 is consistent with normal alcohol consumption. 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 [employer] Known occupational exposures/hazards: No Highest level of school completed/degree received: 11th grade Do you want help with school or training: No Are you now , , , , never or living with a partner: In a typical week, how many times do you talk on the telephone with family, friends, or neighbors: 3 or more times per week How often do you get together with friends or relatives: twice per week How often do you attend worship or oriental orthodox services: 4 or more times per year Do you belong to any clubs or organizations such as worship groups unions, [employer] or athletic groups, or school groups: yes Total score: 4 Score interpretation: A score of greater than or equal to 2 indicates the lowest level of social isolation. Little interest or pleasure in doing things: not at all Feeling down, depressed, or hopeless: not at all Feel stressed/tense/nervous/anxious/difficulty sleeping: only a little Due to disability, difficulty making decisions: No Do you think of yourself as: straight/heterosexual Gender Identity: female Exam Narrative Exam Narrative: General: No acute distress HEENT: Atraumatic, normocephalic Resp: No respiratory distress, speaks in full sentences; diminished lung sounds globally Cardio: Regular rate and rhythm Abdomen: Constitutional Vital Signs, click to edit/add: Last Vital Signs Temp 98.4 F 09/19/25 13:26 Pulse 89 09/19/25 16:10 Resp 26 H 09/19/25 16:10 BP 137/51 09/19/25 16:01 Pulse Ox 89 L 09/19/25 16:10 O2 Del Method Room Air 09/19/25 15:33 Course Vital Signs Vital signs: Vital Signs Temperature 98.4 F 09/19/25 13:26 Pulse Rate 90 09/19/25 13:26 Respiratory Rate 18 09/19/25 13:26 Blood Pressure 176/70 H 09/19/25 13:26 Pulse Oximetry 92 L 09/19/25 13:26 Oxygen Delivery Method Room Air 09/19/25 13:26 Temperature 98.4 F 09/19/25 13:26 Pulse Rate 89 09/19/25 16:10 Respiratory Rate 26 H 09/19/25 16:10 Blood Pressure 137/51 09/19/25 16:01 Pulse Oximetry 89 L 09/19/25 16:10 Oxygen Delivery Method Room Air 09/19/25 15:33 Medical Decision Making MDM Narrative Medical decision making narrative: Prior records reviewed, patient with a recent admission in July and an echo showing an EF of 75%. Patient stated on arrival that she was not willing to stay in the hospital for admission. Labs reviewed showing the patient has minimal leukocytosis with white blood cell count 11.9. COVID, flu and RSV testing is negative. Chest x-ray does show left lower lobe infiltrate. Patient is not clinically fluid overloaded and denies any chest pain or shortness of breath in the emergency department. She remained on oxygen by nasal cannula at 1 L which is her home oxygen, she did have borderline oxygen saturation 90 to 92% in the ER. I discussed with the patient and her daughter that given borderline oxygen saturations she may benefit from an admission and should consider being admitted to the hospital for monitoring and IV antibiotics until she is improved. She states she is not interested in staying in the hospital, they have a home health nurse, the patient has home oxygen and she does not have any other focal medical complaints at this time. Lactic acid is normal, patient is not febrile or tachycardic in the emergency department. Pharmacy recommends Levaquin every other day based on kidney function. Patient's daughter requested that I call the PCP on-call for her primary care provider, Dr. Bateman. I spoke with Tameka Pope NP, she will send Dr. Bateman and message and they will try and get the patient in on Sunday for follow-up. Patient and daughter very grateful for care, they understand that they should return to the emergency department immediately if symptoms change or worsen. They feel they have appropriate supplies and support at home and the patient does not want to be admitted. Oxygen saturation improved with a breathing treatment and the patient was encouraged to continue albuterol at home every 4 hours. She will wear her oxygen continuously at home at 1-1/2 to 2 L which is the amount of oxygen she was wearing at the [place] recently. Patient and daughter feel comfortable with going home, patient verbalizes that if her symptoms are not improving or she feels worse she will come back to the ER. Medical Records Medical records reviewed: Yes I reviewed the patient's medical records Lab Data Lab results reviewed: Yes I reviewed the patient's lab results Labs: Lab Results 09/19/25 09/19/25 Range/Units 14:12 14:31 WBC 11.9 H (4.0-11.0) 10^3/uL RBC 3.44 L (4.20-5.40) 10^6/uL Hgb 10.0 L (12.0-16.0) g/dL Hct 29.9 L (36.0-48.0) % MCV 86.9 (81.0-99.0) fL MCH 29.1 (26.7-34.0) pg MCHC 33.4 (29.9-35.2) g/dL RDW 14.6 (11.0-15.0) % Plt Count 417 (150-450) 10^3/uL MPV 9.7 (9.5-13.5) fL Neut % (Auto) 85.9 H (43.0-75.0) % Lymph % (Auto) 7.0 L (20.5-60.0) % [place] % (Auto) 6.2 (1.7-12.0) % Eos % (Auto) 0.3 L (0.9-7.0) % Baso % (Auto) 0.3 (0.2-2.0) % Neut # (Auto) 10.2 H (1.4-6.5) 10^3/uL Lymph # (Auto) 0.8 L (1.2-3.8) 10^3/uL [place] # (Auto) 0.7 (0.3-0.8) 10^3/uL Eos # (Auto) 0.0 (0.0-0.7) 10^3/uL Baso # (Auto) 0.0 (0.0-0.1) 10^3/uL Abs Immat Gran (auto) 0.04 H (0.00-0.03) 10^3/uL Imm/Tot Granulo (auto) 0.3 (0.0-0.5) % VBG pH 7.477 H (7.330-7.430) VBG pCO2 39.5 L (40.0-52.0) mmHg Sodium 137 (136-145) mmol/L Potassium 3.4 L (3.5-5.1) mmol/L Chloride 98 (98-107) mmol/L Carbon Dioxide 30.6 (21.0-32.0) mmol/L Anion Gap 11.8 BUN 23.0 H (7.0-18.0) mg/dL Creatinine 1.52 H (0.55-1.02) mg/dL Est GFR ( Amer) 40 L (>=60 mL/min/1.73m^2) Est GFR (Non-Af Amer) 33 L (>=60 mL/min/1.73m^2) BUN/Creatinine Ratio 15.1 Glucose 109 H (74-106) mg/dL Lactate 0.8 (0.4-2.0) mmol/L Calcium 8.9 (8.5-10.1) mg/dL Magnesium 1.8 (1.8-2.4) mg/dL Total Bilirubin 0.9 (0.2-1.0) mg/dL AST 14 L (15-37) U/L ALT 20 (14-59) U/L Alkaline Phosphatase 57 (46-116) U/L Total Protein 6.2 L (6.4-8.2) g/dL Albumin 3.0 L (3.4-5.0) g/dL Globulin 3.2 g/dL Albumin/Globulin Ratio 0.9 Influenza Type A Ag Negative Influenza Type B Ag Negative RSV Antigen Not detected (NOT DETECTE) SARS-CoV-2 Ag (CV2AG) Negative (NEGATIVE) Imaging Data Chest x-ray: Attestation: I have reviewed the pertinent imaging results. Radiologist's impression: ITS Impressions Chest X-Ray 09/19/25 13:51 IMPRESSION: WORSENING LEFT LOWER LOBE AIRSPACE DISEASE AND PLEURAL EFFUSION WHEN COMPARED TO THE PRIOR STUDY. Impression dictated by: Epifanio Lyon Jr., D.O. 09/19/2025 2:55 PM Dictation Location: [place] [address] Electronically authenticated by: [id number] Y Date: 09/19/2025 14:55 ECG Data Attestation: I personally reviewed and interpreted this ECG as follows: (Normal sinus rhythm at a rate of 86, no acute ST elevation or ectopy. EKG reviewed by attending physician) Discharge Plan Discharge Chief Complaint: Fever Clinical Impression: Left lower lobe pneumonia, Fever Patient Disposition: Home, Self-Care Time of Disposition Decision: 16:13 Condition: Fair Prescriptions / Home Meds: New albuterol sulfate 90 mcg/actuation HFA aerosol inhaler 2 inh inhalation Q4H PRN (Reason: shortness of breath or wheezing) Qty: 8.5 0RF levofloxacin 750 mg tablet 750 mg PO Q48H 7 Days Qty: 4 0RF No Action rosuvastatin 40 mg tablet 40 mg PO DAILY acetaminophen [Tylenol] 325 mg Tablet 650 mg PO Q6H PRN (Reason: Pain or fever) Qty: 0 0RF cefuroxime axetil 250 mg Tablet 250 mg PO BID 4 Days Qty: 0 0RF calcium carbonate 200 mg calcium (500 mg) Tablet,Chewable 500 mg PO TID PRN (Reason: Indigestion) Qty: 0 0RF furosemide 40 mg Tablet 40 mg PO BID Qty: 0 0RF polyethylene glycol 3350 17 gram Powder In Packet 17 g PO QD PRN (Reason: Constipation) Qty: 0 0RF sennosides-docusate sodium 8.6-50 mg Tablet 2 tab PO QD PRN (Reason: constipation) Qty: 0 0RF tramadol 50 mg Tablet 50 mg PO Q6H PRN (Reason: Pain) 6 Days Qty: 30 0RF Rx Instructions: This script is for ECF use only, to start, Further refills, if needed, are to come from ECF providers. alprazolam 0.25 mg tablet 0.25 mg PO TID PRN (Reason: anxiety) 6 Days Qty: 18 0RF Rx Instructions: This script is ECF use only, to start. Further refills of this medication are to come from ECF providers. temazepam [Restoril] 15 mg capsule 15 mg PO .hs PRN (Reason: sleep) 6 Days Qty: 6 0RF Rx Instructions: This script is for ECF use only, to start. Further refills of this medication are to come from ECF providers. gabapentin 100 mg capsule 100 mg PO Q12H 6 Days Qty: 12 0RF Rx Instructions: This script is for ECF use only, to start. Further refills at ECF are to come from ECF providers. nifedipine 30 mg tablet extended release 24hr PO Spiriva Respimat 2.5 mcg/actuation mist INHALATION clopidogrel 75 mg tablet 75 mg PO DAILY valsartan 80 mg tablet 80 mg PO .QD pantoprazole 40 mg tablet,delayed release (DR/EC) 40 mg PO .QD umeclidinium-vilanterol [Anoro Ellipta] 62.5-25 mcg/actuation blister with device 1 inh INHALATION Q24H metolazone 5 mg tablet 5 mg PO DAILY PRN (Reason: leg swelling/weight gain) Qty: 30 0RF budesonide-formoterol [Symbicort] 160-4.5 mcg/actuation HFA aerosol inhaler 2 inh inhalation BID Qty: 10.2 0RF Print Language: Grenadian Instructions: Community Acquired Pneumonia (ED) Additional Instructions: Dr. Bateman's office will see you on Sunday, please call the office in the morning if you do not hear from them. Please return to the ED if you feel you are not improving or your symptoms are worsening Referrals: Nathan Bateman, [Primary Care Provider, Internal Medicine] - 1 week
--- OUTSIDE RECORDS SUMMARY | 2025-09-19 14:14 | XMS_ITS | Clinical Summary ---
Author Organization [facility] Address [address] [place] [address] Care Team Providers Care Aeronautical Design Engineer Name Role Phone Nathan Bateman DO Primary Care Provider [phone] Allergies Active AllergyReactionsCriticalityNoted RtitJiyicpdaTmmeimpmyca94/08/2024 Other Reaction(s): Unknown Gifeimnabd99/29/2021 Other Reaction(s): Unknown, Unknown Reaction OdjzrulbmbudUeedjtzn28/20/2023 Other Reaction(s): rash Tongue swelling Khnmrtx5602/13/2024 Other Reaction(s): Unknown Reaction Zfqsmykixra06/29/2021 Other Reaction(s): Rash, Unknown, Unknown Reaction Sulfamethoxazole-UzwkvsplggebOxmqa07/29/2021 Other Reaction(s): Unknown Medications MedicationSigDispense QuantityRefillsLast FilledStart [...] BY MOUTH DAILY02/12/2025tive Active Problems ProblemNoted DateDiagnosed GldvMknbhugcfbfh25/17/2025bnormal cardiovascular stress test11/24/2024 Overview (11/24/2024): Problem List clean-up per request of Phys. EHR Cmte Adrenal xpjsii3411/24/20245189Wgryfm15/27/2025trophic /27/2025ervical spondylosis with aeyrmcshsqqoh56/27/2025hronic xyhjujaxls71/27/2025hronic heart failure with preserved ejection fraction (HFpEF)11/24/2024 Overview (11/24/2024): - LHC w/ PCI/stent LAD, RCA (Feb, 2023) - Echo w/ LVEF 60%, ELY, normal RV size/function, RVSP 41 - 01/2024 Chronic obstructive pulmonary disease with (acute) lkbtwhabkluq72/27/2025hronic venous fzsqvonxfauqv53/27/2025Elevated serum immunoglobulin free light chain level11/24/2024Flash pulmonary edema11/24/2024 Overview (11/24/2024): Problem List clean-up per request of Phys. EHR Cmte OMAR (generalized anxiety disorder)11/24/2024Gastroesophageal reflux disease with esophagitis without tgmyxhidsw49/27/2025Heart schslkj1111/24/2024 Overview (11/24/2024): Problem List clean-up per request of Phys. EHR Cmte Dry eyes04/28/2024Epiretinal membrane (ERM) of left eye04/28/2024lepharitis of upper and lower eyelids of both eyes04/28/2024MI 33.0-33.9,adult03/05/2024SHD (arteriosclerotic heart disease)10/17/2023 Overview (11/24/2024): C w/ PCI/stent LAD, RCA (Feb, 2023) COVID10/17/2023Essential jnconpmdwklf81/20/2023 Overview (11/24/2024): Problem List clean-up per request of Phys. EHR Cmte Former dxitnn4310/17/2023 Family History RelationNameStatusCommentsFatherDeceasedMotherDeceased Social History Tobacco UseTypesPacks/DayYears UsedDateSmoking Tobacco: FormerCigarettesQuit: 1993Smokeless Tobacco: Never Tobacco Cessation:Counseling Given: Not Answered CommentsUnknownSex and Gender InformationValueDate RecordedSex Assigned at BirthNot on fileLegal ScgGhcvqb24/15/2023 7:00 PM EDTGender IdentityNot on fileSexual OrientationNot on file Last Filed Vital Signs Vital SignReadingTime TakenCommentsBlood Yiantuqc466/59002/25/2025 8:46 AM EDT Zqtdl0011/30/2025 8:46 AM EDTTemperature--Respiratory Rate--Oxygen Saturation-- Inhaled Oxygen Concentration--Tddeek72.5 kg (195 lb)02/25/2025 8:46 AM EDTHeight 165.1 cm (5' 5 )02/25/2025 8:46 AM EDTBody Mass Index32.45002/25/2025 8:46 AM EDT Plan of Treatment Health MaintenanceDue DateLast DoneCommentsCOVID-19 Vaccine ( season) 5011/04/2024, 09/15/2022, 01/28/2022, Additional history existsInfluenza Vaccine (#1)/, 08/06/2023, 08/11/2022, Additional history existsPneumococcal Vaccine: 65+ BdtnkOwhdclfbi29/16/2015, 08/11/2010 Insurance Care Teams Team MemberRelationshipSpecialtyStart DateEnd Date Nathan Bateman DO [address] [place] [id number] PCP - GeneralInternal Medicine02/10/25
--- OUTSIDE RECORDS SUMMARY | 2025-09-19 14:14 | XMS_ITS | Clinical Summary ---
Author Organization [facility] Address [address] [place] [address] Phone Care Team Providers Care Restaurant Area Director Name Role Phone Nathan Bateman DO Primary Care Provider [phone] Allergies Active AllergyReactionsCriticalityNoted DateComments Sulfamethoxazole-QilfobjktftdCzvzw18/12/3582DimwjbkuwbyfAukozrrs13/20/2023 Tongue swelling Medications MedicationSigDispense QuantityRefillsLast FilledStart DateEnd [...] every 12 hours.5Active Active Problems ProblemNoted DateDiagnosed CdczKefzambegjsz94/17/2025 Assessment & Plan (01/12/2025 3:48 PM EDT): Reports fairly daily episodes of hearing my heart thumping going into my ears No prior documented A-fib or arrhythmia. 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 (PTCA)10/08/20248831Lpgekabscliymj99/08/2024 Assessment & Plan (01/12/2025 3:47 PM EDT): [...] RCA PCI/[place] 4x15mm & 4x18mm Proximal diagonal PCI/[place] 2.5 x 18 mm LAD 10% Circumflex [...] AM EDT): March 09, 2023 Mid/proximal RCA PCI/[place] 4x15mm & 4x18mm Proximal diagonal PCI/[place] 2.5 x 18 mm LAD 10% Circumflex normal LVEF 65% Essential xgzsxmgxzaes02/20/2023 Assessment & Plan (01/12/2025 3:46 PM EDT): Optimal in office Assessment & Plan (04/22/2024 11:58 AM EDT): Optimal in the office Assessment & Plan (03/06/2024 10:41 AM EDT): Optimal in office Shortness of ycwbtf0210/17/20233913SSESF35/20/2023Former eckthc4910/17/2023 Encounters DateTypeDepartmentCare UnzcRimiegyzbvm63/17/2025Scanned Document [facility] [address] [place] [place] [address] Scanning, Generic Provider from Last [...] InformationValueDate RecordedSex Assigned at BirthNot on fileLegal VrsLgmoji13/08/2023 12:05 PM EDTGender IdentityNot on fileSexual OrientationNot on file Last Filed Vital Signs Vital SignReadingTime TakenCommentsBlood Txwmtjsa274/6005 10:42 AM EDT Nolzl3557/17/2025 11:10 AM EDTTemperature--Respiratory Rate--Oxygen Saturation-- Inhaled Oxygen Concentration--Wfwlyf33.7 kg (200 lb)03/17/2025 10:42 AM EDT Bliitt338.1 cm (5' 5 )03/17/2025 10:42 AM EDTBody Mass Index33.28003/17/2025 10:42 AM EDT Plan of Treatment DateTypeDepartmentCare Team (Latest Contact Info)Kxcwqjiwssg10/30/2025 2:10 PM ESTOffice Visit [facility] [address] [facility] [address] [place] [phone] Edinson Perry DO [address] [facility] [address] [place] [address] Health MaintenanceDue DateLast DoneCommentsCreatinine Level1942Lipid Panel 1942Medicare Annual Wellness Visit (AWV)2Potassium Level 1942TSH Level2Diabetes Ialxkgvsk09/20/1960CKD: Urine Protein Xkjpccqml50/20/1961DTaP/Tdap/Td Vaccines (1 - Tdap)1964Bone Density Scan 2007RSV High Risk: (Elderly (60+) or Population) (1 - 1-dose 75+ series)2017Zoster Vaccines (2 of 2)109/, 05/21/2021 Influenza Vaccine (#1)509/, 08/06/2023, 08/11/2022, Additional history existsCOVID-19 Vaccine ( season)501/04/2025, 09/15/2022, 01/28/20220236Qlfhrpisnrxybs86/20/66175103/17/2025, 3Pneumococcal PideumtEdxihjecq89/16/2015, 08/11/2010HIB VaccinesAged OutNo longer eligible based on [...] topic Procedures Procedure NamePriorityDate/TimeAssociated DiagnosisCommentsTRANSTHORACIC ECHO (TTE) WQGSHMGDOblrwyr79/20/2025 11:35 AM EDT Essential hypertension Palpitations from Last 3 Months or Most Recently Relevant to Health Maintenance Results * TRANSTHORACIC ECHO (TTE) COMPLETE (03/17/2025 11:35 AM EDT)ComponentValueRef RangeTest MethodAnalysis TimePerformed AtPathologist SignatureAV mn fdhz5muHo SYNGOAV pk vel1.40m/sSYNGOLV Biplane EF55%SYNGOLVOT diam2.06cmSYNGOMV E/A ratio1.48SYNGOMV avg E/e' ratio17.94SYNGOLA vol index A/L42.1ml/k7DABRUSS EF63 %SYNGORV free wall pk S'16.27cm/oOCQSOANZM17.1wpFdCLUVGEWLZm1.11cmSYNGOAortic Valve Area by Continuity of Peak Velocity1.70qh4HRNNIJN pk okaj3vyIzGCNEN Aortic Valve Area by Continuity of VTI2.41dt1GJHEZRN A4C EF64.6SYNGOSpecimen (Source)Anatomical Location / LateralityCollection Method / VolumeCollection TimeReceived Time03/17/2025 10:43 AM EDT Narrative SYNGO - 03/18/2025 6:52 PM EDT ?[address], [place] [address] ? TRANSTHORACIC ECHOCARDIOGRAM REPORT Patient Name: ?LASHAUN WHALEY ? Reading Physician: ?[id number] Wu ?Malena MANCINI, ?[facility] Study Date: ?03/17/2025 ?Ordering Provider: ?[id number] HOLDEN K ?JOSSUE MRN/PID: ? [id number] ? Fellow: Accession#: ?[id number] ? Nurse: Date of /Age: ?? 1940 / 84 ?Horticulture/Floriculture Teacher: ?Nicolasa Tobias ? years ?RDCS, RVT Gender Assigned at ?? F ?Additional Staff: : Height: ?165.10 cm ?Admit Date: Weight: ?90.72 kg ? Admission Status: BSA / BMI: ? 1.98 m2 / 33.28 ?Department Location: ??[facility] ? kg/m2 ?[facility] [place] Blood Pressure: 120 /64 mmHg Study Type: ?TRANSTHORACIC ECHO (TTE) COMPLETE Diagnosis/ICD: Essential (primary) hypertension-I10; Palpitations-R00.2 Indication: ?CAD, PTCA-2022, Edema, Hyperlipidemia, Former Smoker CPT Codes: ? Echo Complete w Full Doppler-03815 Study Detail: The following Echo studies were [...] (0.6-0.9m/s) AORTA: Asc Ao Diam 2.73 cm [id number] Bryce Guy MD, [facility] Electronically signed on 03/18/2025 at 6:52:27 PM Final Procedure Note Bryce Guy MD - 03/18/[address], [address] [place] [address] TRANSTHORACIC ECHOCARDIOGRAM REPORT Patient Name: LASHAUN Doherty Physician: [id number] Zurita [facility] Study Date: 03/17/2025 Ordering Provider: [id number] ROSADO MRN/PID: [id number] Fellow: Nurse: Date of /Age: 13 1940 / Horticulture/Floriculture Teacher: Carlos Eduardo taylor RDCS,RVT Gender Assigned at F Additional Staff: : Height: 165.10 cm Admit Date: Weight: 90.72 kg Admission Status: BSA / BMI: 1.98 m2 / 33.28 Department Location: [facility] kg/[address] Blood Pressure: 120 /64 mmHg Study Type: TRANSTHORACIC ECHO (TTE) COMPLETE Diagnosis/ICD: Essential (primary) hypertension-I10; Palpitations-R00.2 Indication: CAD, PTCA-2022, Edema, Hyperlipidemia, Former Smoker CPT Codes: Echo Complete w Full Doppler-22179 Study Detail: The following Echo studies were [...] (0.6-0.9m/s) AORTA: Asc Ao Diam 2.73 cm [id number] Bryce Guy MD, [facility] Electronically signed on 03/18/2025 at 6:52:27 PM Final Authorizing ProviderResult TypeResult StatusHolden Rosado SATELLITE TV TECHNICIAN INSTALLER-CNPCV ECHO PROCEDURESFinal ResultPerforming OrganizationAddressCity/State/ZIP CodePhone Number SYNGO from Last 3 Months or Most Recently Relevant to Health Maintenance Insurance Care Teams Team MemberRelationshipSpecialtyStart DateEnd Nathan Bateman DO [address] [place] [address] PCP - GeneralInternal Medicine03/09/25
--- OUTSIDE RECORDS SUMMARY | 2025-09-19 14:15 | XMS_ITS | Clinical Summary ---
Author Organization [facility] Address [address] [place], [place] [address] Care Team Providers Care Die Sizer Name Role Phone Nathan Bateman DO Primary Care Provider [phone] Allergies Active AllergyReactionsCriticalityNoted FycmFepivwkyHphjsvnagshTddsmws24/08/2024 DefpfdmwucKewkprf75/29/2021ulfamethoxazole-CwfnuudlpfobNthuzgr62/29/2021 Codeine-KygagrpswbfHsilswm23/29/2021oxycycline ZtwxrodWorxawy56/29/2021 OqqavtnahfMeggfcc77/29/2021Iodine And Iodide Containing ProductsUnknown 01/19/2021 08/04/22 confirmed with patient that she is not allergic to CT contrast and has had it previously without issues or premeds. EaqahuugesbwElcnczs36/29/1404KjurtzoxfvgStdzkuz89/29/2021seudoephedrineUnknown 10/29/2019Sulfa (Sulfonamide Antibiotics)Rash,Royqscs8103/08/2023Tetanus And Diphtheria TcjwhusOeuegyh34/29/6963MytvjluzbqvwqZgalhgu89/29/2021Trimethoprim Eevktfk3903/09/20238721MavjjvbmgjnPwcvdgn37/29/2021 Medications MedicationSigDispense QuantityRefillsLast FilledStart DateEnd DateStatus temazepam [...] 3b chronic kidney disease 07/30/2025 Encounters DateTypeDepartmentCare DrkkStgyysupwsy82/15/2025Telephone Hematology/Oncology [address] [place] [address] [place] [address] Silvia Nick, ELECTRICAL PLUMBING SUPERVISOR.PATIENT TRANSPORT ORDERLY additional lab nnqkkl8207/13/2025Orders Only Hematology/Oncology [address] [place] [address] [place] [address] Valentin Myers MD Abnormal SPEP (Primary Dx); Anemia in other chronic diseases classified elsewhere; 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)07/10/2025Telephone Cancer Appts [address] [place] [address] Valentin Myers MD Orders; Patient Juvctu2707/10/2025Results Follow-Up Hematology/Oncology [address] [place] [address] [place] [address] Laly Petit PA-C 07/08/2025 10:00 AM EDTVisit (SP) Office Hematology/Oncology [address] [place] [address] [place] [address] Silvia Nick, ELECTRICAL PLUMBING SUPERVISOR.PATIENT TRANSPORT ORDERLY Abnormal SPEP (Primary Dx); Primary hypertension; Hyperlipidemia, unspecified hyperlipidemia type; Heart disease; Edema, unspecified type; Monoclonal gammopathy of undetermined significance; Anemia in other chronic diseases classified zxmtukbdj84/10/2025Telephone Cancer Appts [facility] [place] [address] Silvia Nick, ELECTRICAL PLUMBING SUPERVISOR.PATIENT TRANSPORT ORDERLY Awdugvv1307/08/20259871Wrdnwp86/08/2025Telephone Hematology/Oncology [address] [place] [address] Silvia Nick, ELECTRICAL PLUMBING SUPERVISOR.PATIENT TRANSPORT ORDERLY Lab Orders (nt)07/03/2025H&P External-NonCCF Provider, External, GALLO from Last 3 Months Immunizations ImmunizationAdministration DatesNext DueAS03 bxjllamx67/11/2019,08/13/2018COVID- original vaccine, age 12+ yr, monovalent (PFIZER-BIONTECH [...] RecordedNational Score (1-100), lower number is lower zmzx814106/04/2023State Score (1-10), lower number is lower risk8 3Data from: https://www.neighborhoodatlas.[facility].edu/. Last address used for zeoforsdhhv[address]CommentsNoSex and Gender InformationValueDate RecordedSex Assigned at BirthNot on fileLegal Sex Qoobxw4109/29/2012 10:14 AM ESTGender IdentityNot on fileSexual OrientationNot on file Last Filed Vital Signs Vital SignReadingTime TakenCommentsBlood Nvscjgvu883/68007/08/2025 10:09 AM EDT recheck BP bpdqjjxsGujcr2614/10/2025 10:01 AM YMXXgiwfgbbdot91 ??C (96.8 ??F) 07/08/2025 10:01 AM EDTRespiratory Iaul219107/08/2025 10:01 AM EDTOxygen Fcqouaqisa79%07/08/2025 10:01 AM EDTInhaled Oxygen Concentration--Ffixnd81.8 kg (202 lb 6.1 oz)07/08/2025 10:01 AM LAFGodxct347.4 cm (5' 5.51 )07/08/2025 10:01 AM EDTBody Mass Index33.15007/08/2025 10:01 AM EDT Plan of Treatment DateTypeDepartmentCare Team (Latest Contact Info)Mgqlfskrqqx36/10/2025 2:45 PM ESTOffice Visit [facility] [address] [place] [address] 3 month ELDON with lab10/07/2025 3:00 PM ESTVisit (SP) Office Hematology/Oncology [address] [place] [address] Valentin Myers MD [address] [place] [address] [place] [address] 3 month ELDON with labHealth MaintenanceDue DateLast DoneCommentsAnxiety Screening 1960Depression Gvunucyim70/20/1960Medicare Annual Wellness Visit08/29/2007 Bone Density Vlfbtyilp99/20/2007DTaP,Tdap,Td Vaccine (1 - Tdap)07/17/2014 07/16/2014, 07/09/2013RSV Vaccine (1 - 1-dose 75+ series)2017Shingrix Vaccine (3 of 3)/, 05/21/2021, 05/21/2021dvance Directive Qalgnxnori38/01/2025Covid-19 Vaccine ( season)/04/2025, 09/15/2022, 09/15/2022, Additional history existsInfluenza Vaccine (#1) 509/, 08/11/2022, 07/19/2021, Additional history existsDiabetes Porhhtcnx83/, 07/08/2025, 03/05/2024, Additional history exists Pneumococcal Vaccine: 50+Mhnpxzeml88/16/2015, 08/11/2010Cologuard (FIT-DNA) Kagedtoveyrp50/28/2019Colorectal Cancer ScreeningDiscontinuedCT Colonography DiscontinuedColonoscopyDiscontinuedFecal Occult BloodDiscontinuedSigmoidoscopy Discontinued Procedures Procedure NamePriorityDate/TimeAssociated DiagnosisCommentsFOLATE SERUMRoutine 07/15/2025 10:03 AM EDT Abnormal SPEP Anemia in other chronic diseases classified elsewhere VITAMIN B12 EBJLNPdeavuy51/17/2025 10:03 AM EDT Abnormal SPEP Anemia in other chronic diseases classified elsewhere FERRITIN MONYxnsivo14/17/2025 10:03 AM EDT Abnormal SPEP Anemia in other chronic diseases classified elsewhere IRON + GACQDcgywmz36/17/2025 10:03 AM EDT Abnormal SPEP Anemia in other chronic diseases classified elsewhere COMPREHENSIVE METABOLIC UYGOKVkbwlkl57/17/2025 10:03 AM EDT Abnormal SPEP Anemia in other chronic diseases classified elsewhere CBC + QYAKAwaxhay43/17/2025 10:03 AM EDT Abnormal SPEP Anemia in other chronic diseases classified elsewhere ERYTHROPOIETIN/SZPUxjzixk57/17/2025 10:03 AM EDT Abnormal SPEP Anemia in other chronic diseases classified elsewhere 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 KFRAMZIOEzejino22/17/2025 10:03 AM EDT Abnormal SPEP Anemia in other chronic diseases classified elsewhere KAPPA/BOWLES,FREE,JHQKsdiydf11/10/2025 9:56 AM EDT Abnormal SPEP IMMUNOFIXATION SCREEN, XUEEZLszcirc89/10/2025 9:56 AM EDT Abnormal SPEP IMMUNOGLOBULINS DNQFmsyddy52/10/2025 9:56 AM EDT Abnormal SPEP PROTEIN TOTAL SPFYpltmgi26/10/2025 9:56 AM EDT Abnormal SPEP PROTEIN ELECTROPHORESIS SERUM (P)Gjzufgp2107/08/2025 9:56 AM EDT Abnormal SPEP MONOCLONAL PROTEIN, SERUM (BLOOD)Leaxqns4907/08/2025 9:56 AM EDT Abnormal SPEP PROTEIN ELECTROPHORESIS SERUM W/QNXKCJMerkcwz90/10/2025 9:56 AM EDT Abnormal SPEP COMPREHENSIVE METABOLIC DHHIOCnjutqb33/10/2025 9:56 AM EDT Abnormal SPEP CBC + QIATKdrbuuo60/10/2025 9:56 AM EDT Abnormal SPEP EXTERNAL LAB07/03/2025 1:45 PM EDT EXTERNAL LAB07/03/2025 1:45 PM EDT EXTERNAL LAB07/03/2025 1:45 PM EDT EXTERNAL JOUPRNZ5707/03/2025 1:45 PM EDT from Last 3 Months Results * 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 ANALYSIS (07/15/2025 10:03 AM EDT)ComponentValueRef Range Test MethodAnalysis TimePerformed AtPathologist WpstvsdhvIXY35 L265P Mutation ModvnyCJI09 L265P MUTATION ANALYSIS Laboratory Accession Number: [id number] Sample Type: Peripheral Blood Result: 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 L265P is highly characteristic of [...] presence or absence of the L265P (c.794T>C, p.Uzb463Rdr; g.[id number]; [id number]) variant (mutation) in MYD88 gene (NM_002468.4) using [...] MYD88 mutations in human lymphoma. Nature 2011. 470(4169):115-9. 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 Am J Clin Pathol. 2013. 140(3):387-94. 3) Obi SP, Spencer L, Brooks G, et al. MYD88 L265P somatic mutation in Waldenstrom's macroglobulinemia. N Engl J Med. 2012. 367(6)596-33. 4) Gage WagonerQ, Juan J MADDEN, Ariel LL, Horcait K. Toll-like receptors and cancer: MYD88 mutation and inflammation. Front Immunol. 2014 May 28;367(5):1-10. 5) Nery X, Francy W, Maykel Q, et al. MYD88 L265P Mutation in Lymphoid Malignancies. Cancer Res. 2018. 78(10):0145-59. Disclaimer: This test was developed and its performance characteristics determined by [facility]'s Pathology and Laboratory Medicine Department. It has not been cleared or approved by the FDA. [facility]'s Pathology and Laboratory Medicine Department is regulated under CLIA as certified to perform high-complexity testing. This test is used for clinical purposes. It should not be regarded as investigational or for research. Test performed at [facility], [address] [place] [address]. CLIA Number: [id number] Interpretation performed by Natalee Bolanos, PhD, [facility]07/17/2025 4:30 PM EDT ILLUMINA CLARITY LIMSSpecimen (Source)Anatomical Location / LateralityCollection Method / VolumeCollection TimeReceived TimeBloodBLOOD SPECIMEN / Unknown Venipuncture / Xiqxlmq3207/15/2025 10:03 AM EDT07/15/2025 10:03 AM EDT Narrative Authorizing ProviderResult TypeResult StatusValentin Myers MDLABORATORYFinal ResultPerforming OrganizationAddressCity/State/[facility] CodePhone Number [facility] [address] [place] [phone], [place] * (ABNORMAL) VITAMIN B12 (07/15/2025 10:03 AM EDT)ComponentValueRef RangeTest MethodAnalysis TimePerformed AtPathologist SignatureVitamin B121,457(H)232 - 1,245 pg/mL07/16/2025 12:14 AM EDTCKIN[facility] LABSpecimen (Source)Anatomical Location / LateralityCollection Method / VolumeCollection TimeReceived TimeBloodBLOOD SPECIMEN / UnknownVenipuncture / Fmarbtr6407/15/2025 10:03 AM EDT07/15/2025 10:03 AM EDT Narrative Authorizing ProviderResult TypeResult StatusVivenatalie Myers MDLABORATORYFinal ResultPerforming OrganizationAddressCity/State/ZIP CodePhone Number [facility] [address] [place] [phone], [place] * IRON AND TIBC (07/15/2025 10:03 AM EDT)ComponentValueRef RangeTest Method Analysis TimePerformed AtPathologist KjyjgddyrRchm2816 - 186 ug/dL07/15/2025 11:41 PM EDTCKINDRED [facility] YMIVOAR499670 - 386 ug/dL07/15/2025 11:41 PM EDTCKINDRED [facility] LABTransferrin Yrytpntnkw44.615.0 - 57.0 %07/15/2025 11:41 PM EDTCKINDRED [facility] LABSpecimen (Source) Anatomical Location / LateralityCollection Method / VolumeCollection Time Received TimeBloodBLOOD SPECIMEN / UnknownVenipuncture / Oklbnnw3607/15/2025 10:03 AM EDT07/15/2025 10:03 AM EDT Narrative Authorizing ProviderResult TypeResult StatusValentin Myers MDLABORATORYFinal ResultPerforming OrganizationAddressCity/State/ZIP CodePhone Number [facility] [address] [place] [phone], [place] * FOLATE, SERUM (07/15/2025 10:03 AM EDT)ComponentValueRef RangeTest Method Analysis TimePerformed AtPathologist YeuanbktwZijibd40.5>4.7 ng/mL07/16/2025 12:14 AM EDK[facility] LABSpecimen (Source)Anatomical Location / LateralityCollection Method / VolumeCollection TimeReceived Time BloodBLOOD SPECIMEN / UnknownVenipuncture / Ffrewiv8907/15/2025 10:03 AM EDT 07/15/2025 10:03 AM EDT Narrative Authorizing ProviderResult TypeResult StatusVivenatalie Myers MDLABORATORYFinal ResultPerforming OrganizationAddressty/State/ZIP CodePhone Number [facility] [address] [place] [phone], [place] * FERRITIN (07/15/2025 10:03 AM EDT)ComponentValueRef RangeTest MethodAnalysis TimePerformed AtPathologist AmtvlqpqmOlrkggcq413.014.7 - 205.1 ng/mL07/16/2025 12:14 AM EDTCKINDRED [facility] LABSpecimen (Source)Anatomical Location / LateralityCollection Method / VolumeCollection TimeReceived Time BloodBLOOD SPECIMEN / UnknownVenipuncture / Yygnitt1007/15/2025 10:03 AM EDT 07/15/2025 10:03 AM EDT Narrative Authorizing ProviderResult TypeResult StatusValentin Myers MDLABORATORYFinal ResultPerforming OrganizationAddressCity/State/ZIP CodePhone Number [facility] [address] [place] [address], [place] * (ABNORMAL) ERYTHROPOIETIN/EPO (07/15/2025 10:03 AM EDT)ComponentValueRef Range Test MethodAnalysis TimePerformed AtPathologist AdjxouyhwRmokngntkztpjm05.4(H) 2.6 - 18.5 mIU/mL07/16/2025 11:30 AM EDTCKINDRED [facility] Specimen (Source)Anatomical Location / LateralityCollection Method / Volume Collection TimeReceived TimeBloodBLOOD SPECIMEN / UnknownVenipuncture / Uvkcnhi3907/15/2025 10:03 AM EDT07/15/2025 10:03 AM EDT Narrative [facility] - 07/16/2025 11:30 AM EDT Test analyzed by the Ollie DxI method. Authorizing ProviderResult TypeResult StatusValentin Myers MDLABORATORYFinal ResultPerforming OrganizationAddressCity/State/ZIP CodePhone Number [facility] [address] [place] [phone], * (ABNORMAL) COMPREHENSIVE METABOLIC PANEL (07/15/2025 10:03 AM EDT) Only the most recent of2 resultswithin the time period is included. ComponentValueRef RangeTest MethodAnalysis TimePerformed AtPathologist Signature Protein, Total5.9(L)6.3 - 8.0 g/dL07/15/2025 11:06 AM EDTNORTHCOAST [facility] LABAlbumin3.7(L)3.9 - 4.9 g/dL07/15/2025 11:06 AM EDTNORTHCOAST [facility] LABCalcium, Total9.08.5 - 10.2 mg/dL07/15/2025 11:06 AM EDTNORTHCOAST [facility] LABBilirubin, Total0.30.2 - 1.3 mg/dL 07/15/2025 11:06 AM EDTNORTHCO[facility]ON[facility] LABAlkaline Phosphatase 4534 - 123 U/L07/15/2025 11:06 AM EDTNORTSINAI[facility] OYUTZO38 13 - 35 U/L07/15/2025 11:06 AM [facility] SUZIRW574 - 38 U/L07/15/2025 11:06 AM [facility] KDIDfcymmo746(H) 74 - 99 mg/dL07/15/2025 11:06 AM [facility] Comment: The [place] [employer] (ADA) provides guidance for cutoff [...] Standards of Medical Care in Diabetes 2016, [place] [employer]. Diabetes Care. 2016.39(Suppl 1). BUN32(H)7 - 21 mg/dL07/15/2025 11:06 AM [facility] LAB Creatinine1.64(H)0.58 - 0.96 mg/dL07/15/2025 11:06 AM [facility] XMZMytojh112719 - 144 mmol/L07/15/2025 11:06 AM [facility] LABPotassium4.73.7 - 5.1 mmol/L07/15/2025 11:06 AM [facility] FCKGpmwottz07502 - 107 mmol/L07/15/2025 11:06 AM [facility] LBHWJ64783 - 30 mmol/L07/15/2025 11:06 AM [facility] LABAnion Uaq139 - 15 mmol/L07/15/2025 11:06 AM [facility] LABEstimated Glomerular Filtration Rate31(L)>=60 mL/min/1.73m 07/15/2025 11:06 AM [facility] LABComment:Estimated Glomerular Filtration Rate (eGFR) is [...] VolumeCollection TimeReceived TimeBloodBLOOD SPECIMEN / UnknownVenipuncture / Fhwdjtl2907/15/2025 10:03 AM EDT07/15/2025 10:03 AM EDT Narrative Authorizing ProviderResult TypeResult StatusVivek Lucia MANCINILABORATORYFinal ResultPerforming OrganizationAddressCity/State/ZIP CodePhone Number [facility] [address] [place] [phone] * (ABNORMAL) COMPLETE BLOOD COUNT AND DIFFERENTIAL (07/15/2025 10:03 AM EDT) Only the most recent of2 resultswithin the time period is included. ComponentValueRef RangeTest MethodAnalysis TimePerformed AtPathologist Signature WBC6.283.70 - 11.00 k/uL07/15/2025 10:18 AM [facility] LABRBC3.09(L)3.90 - 5.20 m/uL07/15/2025 10:18 AM [facility] LABHemoglobin8.9(L)11.5 - 15.5 g/dL07/15/2025 10:18 AM [facility]TC[facility] DTZScteehitmz96.6(L)36.0 - 46.0 %07/15/2025 10:18 AM EDT [facility] PZGDWJ78.380.0 - 100.0 fL07/15/2025 10:18 AM ED[facility] ZUTBFG01.826.0 - 34.0 pg07/15/2025 10:18 AM ED[facility] LIYOVXX98.230.5 - 36.0 g/dL07/15/2025 10:18 AM ED[facility] LABRDW-CV13.511.5 - 15.0 %07/15/2025 10:18 AM [facility] LABPlatelet Ifqxi390528 - 400 k/uL 07/15/2025 10:18 AM [facility] LABMPV9.99.0 - 12.7 fL 07/15/2025 10:18 AM [facility] LABNeutrophils %73.5% 07/15/2025 10:18 AM [facility] LABAbs Neut4.621.45 - 7.50 k/uL07/15/2025 10:18 AM [facility] LABLymphocytes %12.3%07/15/2025 10:18 AM [facility] LABAbs Lymph0.77 (L)1.00 - 4.00 k/uL07/15/2025 10:18 AM [facility] Monocytes %10.4%07/15/2025 10:18 AM [facility] LABAbs Mono0.65<0.87 k/uL07/15/2025 10:18 AM [facility] Eosinophils %2.5%07/15/2025 10:18 AM [facility] LABAbs Eosin0.16<0.46 k/uL07/15/2025 10:18 AM [facility] Basophils %0.8%07/15/2025 10:18 AM ED[facility] LABAbs Baso0.05<0.11 k/uL07/15/2025 10:18 AM [facility] Immature Granulocytes %0.5%07/15/2025 10:18 AM EDCHE[facility] LABAbs Immature Gran0.03<0.10 k/uL07/15/2025 10:18 AM EDTNORTSINAI[facility] LABNRBC0.0/100 WBC07/15/2025 10:18 AM [facility]TCHESTN[facility] LABAbsolute nRBC<0.01<0.01 k/uL07/15/2025 10:18 AM EDT [facility] LABDiff StacIicw14/17/2025 10:18 AM EDT [facility] LABSpecimen (Source)Anatomical Location / LateralityCollection Method / VolumeCollection TimeReceived TimeBloodBLOOD SPECIMEN / UnknownVenipuncture / Tvqyuxv5907/15/2025 10:03 AM EDT07/15/2025 10:03 AM EDT Narrative Authorizing ProviderResult TypeResult StatusValentin Myers MDLABORATORYFinal ResultPerforming OrganizationAddressCity/State/ZIP CodePhone Number [facility] [address] [place] [address] * (ABNORMAL) IMMUNOFIXATION SCREEN, SERUM (07/08/2025 9:56 AM EDT)ComponentValue Ref RangeTest MethodAnalysis TimePerformed AtPathologist SignatureMPA ResultA poorly defined region of restricted mobility is present that may represent an M protein.(A)No M protein is identified.07/10/2025 9:40 AM [facility] LABInterpretation (MPA)Poorly defined region of restricted mobility [...] gammopathy. Clinical correlation is necessary.07/10/2025 9:40 AM [facility] LABStaff Review (MPA)Reviewed by Dr. Jennifer David MD07/10/2025 9:40 AM EDT [facility] LABSpecimen (Source)Anatomical Location / LateralityCollection Method / VolumeCollection TimeReceived TimeBloodBLOOD SPECIMEN / UnknownVenipuncture / Cyjcwyw8007/08/2025 9:56 AM EDT07/08/2025 9:56 AM EDT Narrative Authorizing ProviderResult TypeResult StatusFanny Long APRN.CNPLABORATORYFinal ResultPerforming OrganizationAddressCity/State/ZIP CodePhone Number [facility] [address] [place] [address], * (ABNORMAL) PROTEIN ELECTROPHORESIS SERUM (P) (07/08/2025 9:56 AM EDT)Component ValueRef RangeTest MethodAnalysis TimePerformed AtPathologist SignatureAlbumin for SPE3.33(L)3.43 - 5.41 g/dL07/10/2025 8:41 AM [facility] LABAlpha 1 Globulin0.420.18 - 0.43 g/dL07/10/2025 8:41 AM [facility] LABAlpha 2 Globulin0.860.42 - 0.98 g/dL07/10/2025 8:41 AM [facility] LABBeta Globulin0.53(L)0.61 - 1.17 g/dL 07/10/2025 8:41 AM [facility] LABGamma Globulin0.37(L) 0.53 - 1.51 g/dL07/10/2025 8:41 AM [facility] Interpretation (Prot Electro)No definitive M protein is identified on protein electrophoresis.No definitive M protein is identified on protein electrophoresis.07/10/2025 8:41 AM [facility] Interpretation Comment for Protein ElectrophoresisHypogammaglobulinemia is present, which can be seen in the setting of monoclonal gammopathy. If clin ically indicated, monoclonal protein analysis and serum free light chain analysis are suggested to evaluate further for monoclonal gammopathy. 07/10/2025 8:41 AM [facility] LABM-Protein Location 07/10/2025 8:41 AM [facility] LABComment:Not Applicable. M-Protein Concentration0.00<=0.00 g/dL07/10/2025 8:41 AM [facility] LABSPE Staff ReviewReviewed by Dr. Jennifer David MD07/10/2025 8:41 AM [facility] LABSpecimen (Source)Anatomical Location / LateralityCollection Method / VolumeCollection TimeReceived TimeBloodBLOOD SPECIMEN / UnknownVenipuncture / Pfqgefs3907/08/2025 9:56 AM EDT07/08/2025 9:56 AM EDT Narrative [facility] - 07/10/2025 8:41 AM EDT Serum electrophoresis test was performed using the [employer] V8 NEXUS capillary electrophoresis method. Results obtained with different assay methods or kits cannot be used interchangeably. Authorizing ProviderResult TypeResult StatusJaimee Ethan ELECTRICAL PLUMBING SUPERVISOR.CNPLABORATORYFinal ResultPerforming OrganizationAddressCity/State/ZIP CodePhone Number [facility] [address] [place] [phone], * (ABNORMAL) KAPPA/BOWLES,FREE,SER (07/08/2025 9:56 AM EDT)ComponentValueRef Range Test MethodAnalysis TimePerformed AtPathologist SignatureKappa Free, Serum 300.9(H)3.3 - 19.4 mg/L07/09/2025 4:57 PM [facility] Comment: Rarely, increased serum free light chains levels may not be detected or accurately quantified due to prozone phenomenon or in high viscosity samples using this immunoturbidimetric assay. Correlation with other laboratory results and clinical findings is recommended. The [place] Free Light Chain was performed using the Binding [employer] immunoturbidimetric method. Result obtained with different assay methods or kits cannot be used interchangeably. Lambda Free, Serum23.85.7 - 26.3 mg/L07/09/2025 4:57 PM [facility] LABComment: Rarely, increased serum free light chains [...] K/L Ratio, Serum12.64(H)0.26 - 1.6509/08/2025 4:57 PM EDK[facility] LABSpecimen (Source)Anatomical Location / LateralityCollection Method / VolumeCollection TimeReceived TimeBloodBLOOD SPECIMEN / UnknownVenipuncture / Zntjnyh9607/08/2025 9:56 AM EDT07/08/2025 9:56 AM EDT Narrative Authorizing ProviderResult TypeResult StatusFanny Long APRN.CNPLABORATORYFinal ResultPerforming OrganizationAddressty/State/ZIP CodePhone Number [facility] [place] [phone], [place] * (ABNORMAL) PROTEIN, TOTAL (07/08/2025 9:56 AM EDT)ComponentValueRef RangeTest MethodAnalysis TimePerformed AtPathologist SignatureProtein, Total5.5(L)6.3 - 8.0 g/dL07/08/2025 11:42 PM [facility] LABSpecimen (Source)Anatomical Location / LateralityCollection Method / VolumeCollection TimeReceived TimeBloodBLOOD SPECIMEN / UnknownVenipuncture / Uypcdsm9707/08/2025 9:56 AM EDT07/08/2025 9:56 AM EDT Narrative Authorizing ProviderResult TypeResult StatusFanny Long APRN.CNPLABORATORYFinal ResultPerforming OrganizationAddGeisinger Community Medical Centerty/State/ZIP CodePhone Number [facility] [address] [place], [place] [phone], [place] * (ABNORMAL) IMMUNOGLOBULINS,IGG,IGA,IGM (07/08/2025 9:56 AM EDT)ComponentValue Ref RangeTest MethodAnalysis TimePerformed AtPathologist NircymlphYxK185(L)700 - 1,600 mg/dL07/08/2025 7:41 PM [facility] YELRkX87(L)70 - 400 mg/dL07/08/2025 7:41 PM [facility] PPAOlS607(H)40 - 230 mg/dL07/08/2025 7:41 PM [facility] LABSpecimen (Source)Anatomical Location / LateralityCollection Method / VolumeCollection TimeReceived TimeBloodBLOOD SPECIMEN / UnknownVenipuncture / Xvaugjc6107/08/2025 9:56 AM EDT07/08/2025 9:56 AM EDT Narrative Authorizing ProviderResult TypeResult StatusCooperimepatricia Long APRN.CNPLABORATORYFinal ResultPerforming OrganizationAddressCity/State/ZIP CodePhone Number [facility] [address] [facility] [address] [place] [address], * EXTERNAL LAB (07/03/2025 1:45 PM EDT) [...]
--- OUTSIDE RECORDS SUMMARY | 2025-09-19 14:15 | XMS_ITS | Patient Health Record ---
Author Organization [facility] [place] Address [address] [place] [address] Care Team Providers Care Inspector Fibrous Wallboard Name Role Phone Nathan Bateman DO Primary Care Provider Unavaila holden LolisHaylie hermosillo Unavailable [phone] Reason For Referral No Information Problems Problem Type SNOMED Code ICD Code Onset Dates Problem Status W/U Status Risk Notes Problem Gastroesophageal ref lux disease (805002907) GERD (gastroesophageal reflux disease) (K21.9) ActiveconfirmedProblemObesity (460033504)Obesity (E66.9)ActiveconfirmedProblem Coronary artery disease (93878879)CAD (coronary artery disease) (I25.10)Active confirmedProblemHypertension (56147066)HTN (hypertension) (I10)Activeconfirmed ProblemExacerbation of congestive heart failure (27581281152595)CHF exacerbation (I50.9)Activeconfirmed Plan Of Treatment No Information Insurance Providers Payer Name Payer Address Payer Phone Subscriber Number Group Number Insured Name Patient Relationship to Insured Coverage Start Date Coverage End Date [place]IC[place] [address] [place] [address] [id number] Judd KarlaAndreaowen - [facility] [id number] [place] [id number], KarlaAndreaowen - patient is the insured
--- OUTSIDE RECORDS SUMMARY | 2025-09-19 14:15 | XMS_ITS | Encounter Summary ---
Author Organization [facility] Address [address] [place] [address] Care Team Providers Care Wire Brush Maker Name Role Phone Nathan Bateman DO Primary Care Provider [phone] Source Comments In the event this information is protected by the Federal Confidentiality of Alcohol and Drug AbusePatient Records regulations: The Federal rules restrict any use of the information to criminally investigate or prosecute any alcohol or drug abuse patient.[facility] Encounter Details DateTypeDepartmentCare Team (Latest Contact Info)Lqhevanxejl80/12/2025Results Follow-Up Hematology/Oncology [address] [place] [address] Laly Petit, PA-C [address] [place] [address] Social History Tobacco UseTypesPacks/DayYears UsedDateSmoking Tobacco: FormerCigarettes Smokeless Tobacco: NeverAlcohol UseStandard Drinks/WeekCommentsNot Currently0 (1 standard drink = 0.6 oz pure alcohol)PHQ-2AnswerDate RecordedPHQ-2 score0 12/04/2022rea Deprivation IndexAnswerDate RecordedNational Score (1-100), lower number is lower coan930806/04/2023State Score (1-10), lower number is lower risk8 3Data from: https://www.neighborhoodatlas.[facility]/. Last address used for GRACIA GORDON3CommentsNoSex and Gender InformationValueDate RecordedSex Assigned at BirthNot on fileLegal Sex Yyrihy9309/29/2012 10:14 AM ESTGender IdentityNot on fileSexual OrientationNot on filedocumented as of this encounter Miscellaneous Notes * Telephone Encounter - Silvia Nick APRN.CNP - 07/10/2025 3:08 PM EDT I plan to discuss with Dr. Myers. All labs weren't resulted last night. Something is going on! Appreciate you Laly. Thanks everyone. Silvia Nick APRN.DANIELA * Telephone Encounter - Elli Greer RN - 07/10/2025 2:14 PM EDT Refer to Kg Petit PA-C note for details on follow up/ recommendation regarding lab results Elli Greer RN documented in this encounter Plan of Treatment DateTypeDepartmentCare Team (Latest Contact Info)Zccviftvkgk82/10/2025 2:45 PM ESTOffice Visit [facility] [address] [place] [address] 3 month ELDON with lab10/07/2025 3:00 PM ESTVisit (SP) Office Hematology/Oncology [address] [place] [address] Valentin Myers MD [address] [address] 3 month ELDON with labdocumented as of this encounter Visit Diagnoses Not on filedocumented in this encounter Care Teams Team MemberRelationshipSpecialtyStart DateEnd Date Nathan Bateman DO PCP - GeneralInternal Medicine01/31/12documented as of this encounter
--- OUTSIDE RECORDS SUMMARY | 2025-09-19 14:15 | XMS_ITS | CCD ---
Author Organization [facility] CliniSyid Care Team Providers Care Hoop Expander Name Role Phone Nathan Hathaway DO Primary Care Provider Nathan Hathaway Unavailable Unavailable ISABELA, DR EVANS Primary Care Unavailable LIZZETTE, DR BRISSA Doherty [...] Admit Provider DO Lj Ryan Attending Provider Ball DO, Nathan Whitlock Primary Care Provider Ball DO, Nathan Whitlock Primary Care Provider Ball, DO Evans Primary Care Provider THONY Rosado Attending Provider Ball DO, Nathan Whitlock Primary Care Provider Nathan Hathaway MD Unavailable Isabela DO, Nathan Primary Care Provider Isabela REILLY, Nathan Attending Provider Isabela DO, Nathan Whitlock Primary Care Provider Isabela DO, Nathan Primary Care Provider Isabela REILLY, Nathan Attending Provider Nathan Hathaway MD Primary Care Provider Ball DO, Nathan Whitlock Primary Care Provider REYNA ESPARZA Attending Unavailable NATHAN HATHAWAY E Referring Unavailable REYNA ESPARZA Attending Unavailable FERCHO TSE Attending Unavailable Isabela REILLY, Nathan Whitlock Primary Care Provider Isabela REILLY, Nathan Primary Care Provider Keisabell REILLY, Jorge L [place] Emergency Provider HOLDEN ROSADO Attending Unavailable EDINSON PERRY Referring Unavailable NATHAN HATHAWAY Primary Care Unavailable EDINSON PERRY Attending Unavailable HOLDEN ROSADO Referring Unavailable BALLNATHAN Primary Care Unavailable HOLDEN ROSADO Attending Unavailable EDINSON PERRY Referring Unavailable BALL, NATHAN Whitlock Primary Care Unavailable HOLDEN ROSADO Referring Unavailable BALL, NATHAN E Primary Care Unavailable HOLDEN ROSADO Referring Unavailable ISABELA, NATHAN E Primary Care Unavailable Ball , Nathan Primary Care Provider Isabela REILLY, Nathan Attending Provider Isabela REILLY, Nathan Primary Care Provider Ball , Nathan Attending Provider BALL, NATHAN E Primary Care Unavailable PAOLO CASILLAS Attending Unavailable BALL, NATHAN E Primary Care Unavailable BALL, NATHAN E Referring Unavailable BALL, NATHAN E Primary Care Unavailable BALL, NATHAN E Referring Unavailable BALL, NATHAN E Primary Care Unavailable BALL, NATHAN E Referring Unavailable Fanny Bedoya APRN Attending Provider Valentin Leonard MD, V Attending Provider Kaia Black Attending Provider [phone] Ball DO, Nathan Primary Care Provider Ball DO, Nathan Attending Provider [phone] Cher Singh DO Attending Provider [phone] Diamond MANCINI, Agueda Saul Attending Provider Susana Cortes CMA Attending Provider Unavaila ble Seth Dupree DO Attending Provider [phone] Ball, Nathan Primary Care Unavailable Ball, Nathan Attending Unavailable Ball, Nathan Admitting Unavailable Ball, Nathan Primary Care Unavailable Keister, Jorge L A Admitting Unavailable Keister, Jorge L A Attending Unavailable Ball, Nathan Primary Care Unavailable Kaia Krishna Admitting Unavailable Kaia Krishna Attending Unavailable JEFFERYEber Attending Unavailable Allergies Allergy ClassificationReported Allergen(s)Allergy TypeDate of OnsetReaction(s) Facility (20 sources)amLODIPine; Translations: [AMLODIPINE]Drug Defrapa50-00-5379Zrfgduj [facility] (12 sources)Codeine / guaiFENesin; Translations: [CODEINE-GUAIFENESIN]Drug Edwaofb29-80-8572MfozkmpRupzqbxfl Clinic (12 sources)Doxycycline; Translations: [DOXYCYCLINE HYCLATE]Drug Allergy 04-61-2047WfxeijpXqsztwhst Clinic (20 sources)DULoxetine; Translations: [DULOXETINE]Drug Mnnykwr57-23-0991Tkedixr [facility] (20 sources)levoFLOXacin; Translations: [LEVOFLOXACIN]Drug Hcyjwaz17-42-2920 [facility] (20 sources)Ondansetron; Translations: [ONDANSETRON]Drug Qglentb95-29-4740 [facility] HospitalComment on above:Onset Date: 10/29/2019 (20 sources)Penicillins; Translations: [PENICILLINS]Propensity to adverse reactions to xldi41-89-5413CyhnaypJtlglwltb Clinic (20 sources)Sulfamethoxazole / Trimethoprim; Translations: [Bactrim]Drug Allergy 45-68-9209[facility]pifjBrown [facility] (8 sources)Tetracycline (class of antibiotic); Translations: [TETRACYCLINES] Propensity to adverse reactions to kxsp30-42-9284QtswcviOjuqlcawi Clinic (12 sources)Iodine And Iodide Containing Products; Translations: [IODINE AND IODIDE CONTAINING PRODUCTS]Drug Hqfvsbe78-33-5872WpgrazgEoffgjmer Clinic (20 sources)Tetanus And Diphtheria Toxoids; Translations: [TETANUS AND DIPHTHERIA TOXOIDS]Propensity to adverse reactions to nmdl34-67-7258PfkmbckSelect [facility]ty [facility] (20 sources)AmoxicillinDrug Brldqsu71-69-9263Nmrqelv, Unknown ReactionMary Rutan Hospital (20 sources)Codeine / guaiFENesinDrug AllergyRhode Island Homeopathic Hospital [employer] Other (20 sources)DoxycyclineDrug Sbcoluz15-29-7197Qugfkgf, Unknown ReactionMary Rutan Hospital (20 sources)levoFLOXacinDrug AllergyRhode Island Homeopathic Hospital [facility] Other (20 sources)Ondansetron; Translations: [Zofran]Drug Bahkkur27-15-2642DpygdwvFeeOhioHealth Southeastern [facility] Repository (20 sources)Tetanus-Diphtheria Toxoids TdDrug allergyRhode Island Homeopathic Hospital [employer] Other (20 sources)AllopurinolDrug Tgtvxbr09-83-1275AjmkaomPzsOhioHealth Southeastern Medical Center Repository (1 source)amLODIPineDrug Lqdtygy33-84-5374XrbMer[facility] Rep[facility] (1 source)DoxycyclineDrug AllergyMercy Health West Hospital Repository (1 source)DULoxetineDrug Cftzxwz96-06-6812ElwMercy Health West Hospital Repository (1 source)Iodine (And Iodine Containting Drugs)Drug allergy (disorder)01-19-2021 [facility] Repository (1 source)Sulfamethoxazole / TrimethoprimDrug Irjnvzf18-80-1737AnnMercy Health West Hospital Repository (9 sources)Sulfonamides (Antibiotic); Translations: [SULFA (SULFONAMIDE ANTIBIOTICS)]Allergy to ocljtmdsg77-26-5060Wfwz, [facility] (18 sources)SulfamethoxazoleDrug Knxxvyh18-15-6176Nltlzfs [facility] (8 sources)Trimethoprim; Translations: [TRIMETHOPRIM]Drug Bfvvjeq18-54-5251 [facility] (20 sources)Pseudoephedrine; Translations: [PSEUDOEPHEDRINE]Drug Allergy 17-98-1739QopqmrmDxthm [place] [employer] Other (20 sources)TetracyclineDrug AllergyFreeChargeSouth County Hospital [employer] Other (20 sources)Cheratussin AC *COUGH/COLD/ALLERGY*Propensity to adverse reactions 95-72-1262LlhwdbsHazqs [facility] Other (20 sources)Zofran *ANTIEMETICS*Propensity to adverse ihpxjnmoo65-96-7687Nlaefoc [place] [employer] Other (5 sources)amLODIPineDrug AllergyRhode Island Homeopathic Hospital [employer] Other (20 sources)Azithromycin; Translations: [AZITHROMYCIN]Drug Tvznifm08-33-9850 rash, SwellingMary [facility]an Hospital (20 sources)CodeineDrug Mewmboe39-63-0528Mipjaty [facility] (17 sources)guaiFENesinDrug Hhyqvrr92-55-0052FhbgmwzSalem City Hospital (17 sources)12 Hour DecongestantAllergy to mdjrustwf28-57-0573Teiykrc [facility] HospitalComment on above:Onset Date: 10/29/2019 (17 sources)Cheratussin AC *COUGH/COLD/ALLAllergy to bktadusep31-48-4642Rapqbap [facility] HospitalComment on above:Free Text Allergy: Cheratussin AC *COUGH/COLD/ALLERGY*; Onset Date: 10/29/2019 (8 sources)PenicillinsDrug Llkzghucxxm24-84-9317[facility] (4 sources)PenicillinsPropensity to adverse reactions to rjxb63-07-4933VbudaunSelect Medical Specialty Hospital [facility] (4 sources)TetracyclinesPropensity to adverse reactions to lpwt93-74-3036QchrotnSelect Medical Specialty Hospital - [place] (1 source)Allopurinol; Translations: [ALLOPURINOL]Drug Mzijuqx50-41-5867 [facility] Repository Medications Current Medications MedicationDrug Class(es)DatesSig (Normalized)Sig (Original)AeroChamber Mini Chamber - (5 sources)Start: 91-09-5399AyurFbrfilo Mini Chamber - Use with MDI every 6 hours as needed inhaled every 6 hours as needed for30 days Mar, Active ALPRAZolam 0.25 mg oral tablet (20 sources)BenzodiazepineStart: 99-68-6803udsf 1 tablet by mouth three times daily as needed for anxietyAlprazolam 0.25 mg tablet Active 0.25 MG PO Three times daily as needed for anxiety 270 90 August 21, 2025 12:32pm Chronic kidney disease Chronic kidney disease, stage 3b Complies with drug therapyStart: 09-11-2024 End: 11-19-8568zzie 1 tablet by mouth twice daily as needed for anxiety Alprazolam 0.25 mg tablet Discontinued 0.25 MG PO Twice daily as needed for anxiety February 12, 2025 12:00am August 21, 2025 12:35pmStart: 01-31-2024 End: 18-98-8130nzef 1 tablet by mouth every eight hours as needed for anxiety Alprazolam 0.25 mg tablet Discontinued 0.25 MG PO .q8hrs as needed for Anxiety January 31, 2024 10:33am September 11, 2024 3:20pmStart: 34-34-9782kpgj 1 tablet by mouth every eight hours as needed for anxietyALPRAZolam 0.25 MG TAKE 1 TABLET BY MOUTH EVERY 8 HOURS NEEDED FOR ANXIETY for 90 February, Active Start: 03-08-2023 End: 20-33-2202xrrt 1 tablet by mouth three times daily [...] 250 mg oral tablet (10 sources)Macrolide AntimicrobialStart: 23-78-7742Tndhndxyvnwf 250 MG as directed Orally daily for 5 days Aug, ActiveStart: 04-26-2023 Azithromycin 250 MG as directed Orally daily for 5 days Mar, Oxxmqi229 actuat budesonide 0.16 mg/actuat / formoterol fumarate 0.0045 mg/actuat metered dose inhaler (20 sources)Corticosteroid, beta2-Adrenergic AgonistStart: 22-94-0448ixjf 1 puff(s) by inhalation twice dailyBudesonide-Formoterol (Symbicort) 160-4.5 mcg/actuation HFA aerosol inhaler Active 2 PUFF INHALATION Twice daily August 21, 2025 12:00am Complies with drug therapyStart: 95-43-7142tzjr 2 puff(s) by inhalation every twelve hoursSymbicort 160-4.5 mcg/actuation inhaler Inhale 2 puffs every 12 hours. 12/31/2024 ActiveStart: 12-29-2024 End: 21-67-1608gkma 1 puff(s) by inhalation every twelve hoursBudesonide- Formoterol 160-4.5 mcg/actuation HFA aerosol inhaler Discontinued 2 PUFF INHALATION Every 12 hours 30.6 90 0 December 31, 2024 10:25am February 12, 2025 7:11ao020 actuat budesonide 0.16 mg/actuat / formoterol fumarate 0.0048 mg/actuat / glycopyrrolate 0.009 mg/actuat metered dose inhaler (1 source)Corticosteroid, beta2-Adrenergic AgonistStart: 09-21-8576zqlj 2 puff(s) by inhalation twice dailyBreztri Aerosphere 160-9-4.8 MCG/ACT 2 puffs Inhalation Twice a day Sample Apr, Activeclopidogrel 75 mg oral tablet (20 sources)P2Y12 Platelet InhibitorStart: 56-89-6609ycnn 1 tablet by mouth once dailyClopidogrel 75 mg tablet Active 0 .ROUTE .COMPLEX 90 3 July 07, 2025 7:34am TAKE 1 TABLET BY MOUTH DAILY Complies with drug therapyStart: 05-09-2023 End: 37-27-5892bshy 1 tablet by mouth once dailyClopidogrel 75 mg tablet Discontinued 75 MG PO Daily May 17, 2023 12:00am June 16, 2024 11:42am Start: 05-09-2023 End: 81-61-2593txcpjccphug (PLAVIX) 75 mg tablet TAKE 8 TABLETS BY MOUTH ON DAY ONE THEN TAKE 1 TABLET BY MOUTH DAILY 05/09/2023 ActiveComment on above:TAKE 8 TABLETS BY MOUTH ON DAY ONE THEN TAKE 1 TABLET BY MOUTH DAILYcodeine phosphate 2 mg/ml / guaiFENesin 20 mg/ml oral solution (6 sources)Opioid AgonistStart: 56-20-8798nfyz 10 mL by mouth four times daily as needed for coughguaiFENesin-Codeine 100-10 MG/5ML 10 mL as needed Orally qid as needed for cough for 7 days Activeenteric contrast (will be provided with radiology test) (1 source)Start: 05-29-2022 End: 79-64-0364kwtrsif contrast (will be provided with radiology test) [...] enteric contrast guidelinesFluticasone-Salmeterol 115-21 MCG/ACT (16 sources)Start: 92-09-3771tsno 2 puff(s) by inhalation twice daily Fluticasone-Salmeterol 115-21 MCG/ACT 2 puffs Inhalation Twice a day Apr, ActiveStart: 66-51-8685tlda 2 puff(s) by inhalation twice dailyFluticasone- Salmeterol 115-21 MCG/ACT 2 puffs Inhalation Twice a day for 30 days Apr, Activefurosemide 40 mg oral tablet (20 sources)Loop DiureticStart: 40-97-2508jyru 2 tablets by mouth twice daily Start: 08-11-2025 End: 56-59-9671cfgc 1 tablet by mouth twice dailyFurosemide 40 mg tablet Discontinued 40 MG PO Twice daily 60 0 August 11, 2025 12:00am August 21, 2025 11:51amStart: 10-06-2024 End: 94-34-0289Drhminplax 20 mg tablet Discontinued 0 .ROUTE .COMPLEX 180 3 October 06, 2024 1:59pm December 19, 2024 5:28pm TAKE 1 TABLET BY MOUTH 1 TO 2 TIMES DAILY NEEDEDStart: 05-18-2023 End: 27-25-0615gqpd 1 tablet by mouth twice dailyFurosemide 20 mg tablet Discontinued 20 MG PO Twice daily 180 3 December 23, 2024 2:16pm February 12, 2025 7:05amStart: 05-18-2023 End: 86-28-4918fadz 1 tablet by mouth three times weeklyFurosemide 20 mg tablet Discontinued 20 MG PO every other day 30 0 May 18, 2023 11:38am 2023 2:00pm on even days 3 times a week. Goal weight is 195lbs, if you notice your weight trending up please take an extra dose as instructed by your PCP Start: 87-84-2669Eqdbrevgsj 20 MG Oral Tablet one tablet M, W, F Quantity: 36 Refills: 3 Ordered: 21-Mar-2023 Edinson Perry DO Start : 21-Mar-2023 Active new doseStart: 03-08-2023 End: 98-56-4513Ohiuictrke 20 mg tablet Discontinued 20 MG PO every other day March 08, 2023 12:00am May 18, 2023 11:39am on even days 3 times a weekStart: 03-08-2023 End: 76-53-7752sltw 1 tablet by mouth once dailyFurosemide 20 mg tablet Discontinued 20 MG PO Daily February 12, 2025 12:00am June 19, 2025 10:05am Furosemide 20 MG TAKE 1 TABLET BY MOUTH 1 TO 2 TIMES DAILY NEEDED for 90 Activegabapentin 100 mg oral capsule (20 sources)Anti-epileptic AgentStart: 08-15-2024 End: 15-58-3761auzs 1 capsule by mouth twice dailyGabapentin 100 mg capsule Active 0 .ROUTE .COMPLEX 180 3 July 07, 2025 7:34am TAKE 1 CAPSULE BY MOUTH TWICE DAILY Complies with drug therapyStart: 03-08-2023 End: 31-95-0802yyzd 1 capsule by mouth three times dailyGabapentin [...] with radiology test) (1 source)Start: 05-29-2022 End: 18-18-2055uh contrast (will be provided with radiology test) [...] 5 mg oral tablet (1 source)Thiazide-like DiureticStart: 23-30-4749azvd 1 tablet by mouth once daily as neededMetolazone 5 mg tablet Active 5 MG PO Daily as needed August 21, 2025 12:00am Complies with drugtherapyNIFEdipine 60 mg osmotic 24 hr extended release oral tablet (20 sources)Dihydropyridine Calcium Channel BlockerStart: 08-11-2025 End: 10-32-5653sbkc 1 tablet by mouth once dailyStart: 02-20-2024 End: 73-71-3058xwzn 1 tablet by mouth once dailyNifedipine 30 mg tablet extended release 24hr Discontinued 30 MG PO Daily February 26, 2024 12:00am March 19, 2024 2:54pmStart: 17-12-0732ivmu 1 tablet by mouth every twenty-four hours NIFEdipine ER (PROCARDIA XL) 30 mg 24 hr tablet Take 30 mg by mouth. 02/20/2024 Activenitrofurantoin, macrocrystals 25 mg / nitrofurantoin, monohydrate 75 mg oral capsule (11 sources)Nitrofuran AntibacterialStart: 23-12-3345boxt 1 capsule by mouth every twelve hoursNitrofurantoin Monohyd Macro 100 MG 1 capsule with food Orally every 12 hrs for 5 days Jun,ctivepantoprazole 40 mg delayed release oral tablet (20 sources)Proton Pump InhibitorStart: 58-18-2986bypo 1 tablet by mouth once daily at breakfastPantoprazole 40 mg tablet,delayed release (DR/EC) Active 0 .ROUTE .COMPLEX 90 November 18, 2024 8:28am TAKE 1 TABLET BY MOUTH DAILY ON AN EMPTY STOMACH FOLLOWED IN 1/2 HOUR BY BREAKFAST Complies with drug therapy Start: 07-05-2021 End: 45-95-7014prim 1 tablet by mouth once daily in the morningPantoprazole 40 mg tablet,delayed release (DR/EC) Discontinued 40 MG PO Every morning March 08, 2023 12:00am November 18, 2024 8:28amPantoprazole Sodium 40 MG Oral Packet Take 1 tablet by mouth on a empty stomach Quantity: 0 Refills: 0 Ordered: 07-Mar-2023 DO ActivePantoprazole Sodium Not-Takingrosuvastatin calcium 40 mg oral tablet (20 sources)HMG-CoA Reductase InhibitorStart: 87-81-9364igmu 1 tablet by mouth once dailyRosuvastatin 40 mg tablet Active 0 .ROUTE .COMPLEX 90 November 18, 2024 8:24am TAKE 1 TABLET BY MOUTH DAILY Complies with drug therapyStart: 09-33-0767kwgs 1 tablet by mouth once dailyRosuvastatin 40 mg tablet Active 0 .ROUTE .COMPLEX 90 November 18, 2024 8:24am TAKE 1 TABLET BY MOUTH DAILYStart: 02-02-2024 End: 19-64-5351lshw 1 tablet by mouth once dailyRosuvastatin 40 mg tablet Discontinued 40 MG PO Daily 30 30 0 February 06, 2024 12:11pm November 18, 2024 8:24amtriamcinolone acetonide 5 mg/ml topical cream (20 sources)CorticosteroidStart: 15-82-3949djrijxpdkpkbm (Kenalog) 0.5 % cream 01/31/2024 ActiveStart: 30-81-9996vfobnyiundxhg (Kenalog) 0.5 % cream Twice daily 01/31/2024 ActiveStart: 01-31-2024 End: 48-30-5319Qfsffqxakdefv Acetonide 0.5 % cream Discontinued 1 APPLIC TOPICAL Twice daily January 31, 2024 12:00am February 12, 2025 6:39amStart: 01-31-2024 End: 07-76-2352Dnfclufqdbnne Acetonide 0.1 % paste Discontinued 1 APPLIC DENTAL January 31, 2024 12:00am February 12, 2025 6:39am 1 application do not rinse afterwards and avoid eating or drinking for 30 minutes Mouth/Throat Twice a day Start: 72-16-2543Ylccjovjbkemt Acetonide 0.1 % 1 application do not rinse afterwards and avoid eating or drinking for 30 minutes Mouth/Throat Twice a day for 7 days Jul, ActiveStart: 55-03-1102Qbmhekurirxjh Acetonide 0.5 % 1 application Externally Two times a day for 14 days Mar, ActiveStart: 35-66-5751Jhxtpbxqertns Acetonide 0.5 % 1 application Externally Two times a day for 14 days Mar, ActiveUmeclidinium-Vilanterol (20 sources)Anticholinergic, beta2-Adrenergic AgonistStart: 05-19-2025 Umeclidinium-Vilanterol (Anoro Ellipta) 62.5-25 mcg/actuation blister with device Active 1 INH INHALATION Daily 180 90 3 May 19, 2025 3:59pm Complies with drug therapyStart: 28-59-7680Svkci: 45-02-6762Gfokm: 05-19-2025 Umeclidinium-Vilanterol (Anoro Ellipta) 62.5-25 mcg/actuation blister with device Active 1 INH INHALATION Daily 180 90 May 19, 2025 3:59pm Complies with drug therapyStart: 05-15-2025 End: 21-32-5936Rryklpbgftmr-Vilanterol (Anoro Ellipta) 62.5-25 mcg/actuation blister with device Discontinued 1 INH INHALATION Daily 180 90 3 May 15, 2025 11:55am May 19, 2025 4:04pmStart: 05-15-2025 End: 04-43-0173Eilsgnaqlrdh-Vilanterol (Anoro Ellipta) 62.5-25 mcg/actuation blister with device Discontinued 1 INH INHALATION Daily 180 90 May 15, 2025 11:55am May 19, 2025 4:04pmStart: 03-19-2025 End: 46-93-6650Hquycitlzrpc-Vilanterol (Anoro Ellipta) 62.5-25 mcg/actuation blister with device Discontinued 1 INH INHALATION Daily 180 90 3 March 19, 2025 11:38am May 15, 2025 11:55amStart: 03-19-2025 End: 42-65-8492Guaryynxiudr-Vilanterol (Anoro Ellipta) 62.5-25 mcg/actuation blister with device Discontinued 1 INH INHALATION Daily 180 90 March 19, 2025 11:38am May 15, 2025 11:55amStart: 03-19-2025 End: 03-81-9452Ljpwuhvzfemd-Vilanterol (Anoro Ellipta) 62.5-25 mcg/actuation blister with device Discontinued 1 INH INHALATION Daily 60 30 0 March 19, 2025 11:37am March 19, 2025 11:46amStart: 03-13-2025 End: 51-18-0518Uitlpzsplfbv-Vilanterol (Anoro Ellipta) 62.5-25 mcg/actuation blister with device Discontinued 1 INH INHALATION Daily 60 30 5 March 13, 2025 9:43am March 13, 2025 1:43pmStart: 03-62-4735Jrvav Ellipta 62.5-25 MCG/ACT aerosol powder USE 1 INHALATION BY MOUTH DAILY 02/12/2025 ActiveStart: 02-12-2025 End: 93-47-9209Qaidhfyrydom-Vilanterol (Anoro Ellipta) 62.5-25 mcg/actuation blister with device Discontinued 1 INH INHALATION Daily 60 30 0 February 12, 2025 12:00am March 13, 2025 1:20pmStart: 02-12-2025 End: 84-72-1891Yfrkstvnbeou-Vilanterol (Anoro Ellipta) 62.5-25 mcg/actuation blister with device Discontinued 1 INH INHALATION Daily 60 30 February 12, 2025 12:00am March 13, 2025 1:20pmUmeclidinium-Vilanterol (Anoro Ellipta) 62.5-25 mcg/actuation blister with device (1 source)Start: 86-78-3655Oznhcdwnlrjs-Vilanterol (Anoro Ellipta) 62.5-25 mcg/actuation blister with device Active 1 INH INHALATION Daily 180 90 March 19, 2025 11:38amvalsartan 80 mg oral tablet (20 sources)Angiotensin 2 Receptor BlockerStart: 10-08-2024 End: 61-26-7787eprj 1 tablet by mouth once dailyValsartan 80 mg tablet Active 80 MG PO Daily 90 90 June 19, 2025 3:16pm Complies with drug therapy{20 (nirmatrelvir 150 MG Oral Tablet) / 10 (ritonavir 100 MG Oral Tablet) } Pack [Paxlovid 5-Day] (9 sources)Start: 52-95-6917mbkx 3 tablets by mouth every twelve hoursPaxlovid (300/100) 20 x 150 MG & 10 x 100MG 3 tablets Orally Twice a day for 5 days Jun, Active Completed/Discontinued Medications MedicationDrug Class(es)DatesSig (Normalized)Sig (Original)[id number] 200 actuat albuterol 0.09 mg/actuat metered dose inhaler (20 sources)beta2-Adrenergic AgonistStart: 20-89-6681qucgpzxdt HFA 90 mcg/act inhaler 01/31/2024 ActiveStart: 07-38-3429cxcaajyyz HFA 90 mcg/act inhaler Every 6 hours 01/31/2024 ActiveStart: 01-31-2024 End: 69-58-3340dnto 1 puff(s) by inhalation every six hours as needed for wheezingAlbuterol Sulfate 90 mcg/actuation HFA aerosol inhaler Discontinued 2 PUFF INHALATION Every 6 hoursas needed for shortness of breath or wheezing 8.5 5 November 26, 2024 10:19am August 21, 2025 11:51amStart: 92-39-4445ewnh 2 puff(s) by inhalation every six hours as needed for coughAlbuterol Sulfate HFA 108 (90 Base) MCG/ACT 2 puff Inhalation every 6 hours as needed for cough, SOB Mar, ActiveStart: 87-08-3502buvw 2 puff(s) by inhalation every six hours as needed for coughAlbuterol Sulfate HFA 108 (90 Base) MCG/ACT 2 puff Inhalation every 6 hours as needed for cough, SOB Mar, ActiveStart: 68-96-6253liov 2 puff(s) by inhalation every six hours as needed for coughAlbuterol Sulfate HFA 108 (90 Base) MCG/ACT 2 puff Inhalation every 6 hours as needed for cough, SOB Mar, ActiveStart: 59-88-0758kpfp 2 puff(s) by inhalation every four hours as needed for coughAlbuterol Sulfate HFA 108 (90 Base) MCG/ACT 2 puffs as needed Inhalation every 4 hrs for As needed for cough or wheeze February, Not-Takingascorbic acid 500 mg oral tablet (19 sources)Vitamin CStart: 03-08-2023 End: 72-59-6235mzak 1 tablet by mouth once dailyAscorbic Acid (Vitamin C) (Vitamin C) 500 mg Tablet Discontinued 500 MG PO Daily March 08, 2023 12:00am May 17, 2023 10:50amaspirin 81 mg oral tablet (20 sources)Platelet Aggregation Inhibitor, Nonsteroidal Anti-inflammatory Drug Start: 04-18-2023 End: 95-95-1597oxjv 1 capsule by mouth once dailyAspirin 81 mg capsule Discontinued 81 MG PO Daily February 12, 2025 12:00am March 19, 2025 11:46am Start: 03-07-2023 End: 19-25-6086vmua 1 tablet by mouth once daily in the morningAspirin 81 mg tablet,delayed release (DR/EC) Discontinued 81 MG PO Every morning February 27, 2024 10:00am December 16, 2024 11:47am blood thinner every Mon, Wed, and FriComment on above:Take by mouth.benazepril (20 sources)Angiotensin Converting Enzyme InhibitorBenazepril HCl Not-Taking benzonatate 100 mg oral capsule (20 sources)Non-narcotic AntitussiveStart: 60-23-5189svsx 1 capsule by mouth every eight hoursBenzonatate 100 MG 1 capsule as needed Orally Three times a day for As needed for cough or wheeze February, Not-Takingbumetanide 1 mg oral tablet (13 sources)Loop DiureticStart: 07-06-2025 End: 10-00-7193iyke 1 tablet by mouth twice dailyBumetanide 1 mg tablet Discontinued 1 MG PO Twice daily 60 30 2 July 06, 2025 6:16pm July 292024 8:00pmStart: 06-19-2025 End: 47-91-7091djuc 1 tablet by mouth twice dailyBumetanide 0.5 mg tablet Discontinued 0.5 MG PO Twice daily 60 30 0 July 03, 2025 12:14pm July 06, 2025 6:18pmbusPIRone (20 sources)busPIRone HCl Not-TakingCalcium Carbonate (9 sources) End: 12-55-3470prokrsb carbonate (CALCIUM 600 ORAL) Take by mouth. 07/08/2025 Discontinued (Discontinued by another Health Care Provider)calcium carbonate (CALCIUM 600 ORAL) Take by mouth. Activecalcium carbonate (CALCIUM 600 ORAL) Take by mouth. 0 ActiveComment on above:Take by mouth.calcium carbonate 1500 mg / cholecalciferol 0.01 mg oral tablet (19 sources)Vitamin DStart: 03-08-2023 End: 95-99-4671jvhm 1 tablet by mouth once dailyCalcium Carbonate-Vitamin D3 (Calcium 600 + D(3)) 600 mg-10 mcg (400 unit) Tablet Discontinued 1 TAB PO Daily March 08, 2023 12:00am May 17, 2023 10:50amcarvedilol 3.125 mg oral tablet (20 sources)alpha-Adrenergic Humaira, beta-Adrenergic BlockerStart: 04-20-2024 End: 77-38-4095waubilwfxr (Coreg) 3.125 MG tablet 04/20/2024 11/25/2024 Discontinued (Therapy completed)Start: 02-11-2024 End: 13-72-8394hyfi 1 tablet by mouth twice daily at mealtimeCarvedilol 3.125 mg tablet Discontinued 0 .ROUTE .COMPLEX 180 3 February 11, 2024 7:04am February 26, 2024 10:53am TAKE 1 TABLET BY MOUTH TWICE DAILY WITH FOODStart: 05-18-2023 End: 32-68-1175Fmqeyvnrcu 3.125 mg tablet Discontinued 12.5 MG PO Twice daily 30 May 18, 2023 11:38am May 18, 2023 2:48pm Please do not take if you are feeling lightheaded or have a blood pressure less [id number] systolic at homeStart: 05-18-2023 End: 09-49-8282Bjzewkjubb Discontinued 12.5 MG PO Twice daily May 18, 2023 11:38am May 18, 2023 2:48pm Please do not take if you are feeling lightheaded or have a blood pressure less than 120 systolic at homeStart: 05-18-2023 End: 57-47-6409yltw 1 tablet by mouth twice daily at mealtimeCarvedilol (Coreg) 12.5 mg tablet Discontinued 12.5 MG PO Twice daily 60 May 18, 2023 12:00am January 31, 2024 10:34am must administer with a meal/foodStart: 02-14-2023 End: 17-54-9588mhqn 1 tablet by mouth twice dailyCarvedilol 3.125 mg tablet Discontinued 3.125 MG PO Twice daily January 31, 2024 12:00am January 7:04amComment on above:TAKE 1 TABLET BY MOUTH TWICE A DAY WITH FOOD/MEALcefdinir 300 mg oral capsule (20 sources)Cephalosporin AntibacterialStart: 05-19-2025 End: 33-75-6683qyiq 1 capsule by mouth twice dailyCefdinir 300 mg capsule Discontinued 300 MG PO Twice daily 10 5 0 May 19, 2025 12:00am June 19, 2025 9:32amStart: 02-13-2024 End: 13-40-5938bwjj 1 capsule by mouth twice dailyCefdinir 300 mg capsule Discontinued 300 MG PO Twice daily 14 7 0 February 13, 2024 12:00am February 26, 2024 10:49am Right otitis media Dysfunction of eustachian tube Otitis media, unspecified, right ear Unspecified Eustachian tube disorder, unspecified ear Fluticasone Propion-Salmeterol (20 sources)Corticosteroid, beta2-Adrenergic AgonistStart: 11-26-2024 End: 44-93-8166xbgo 1 puff(s) by inhalation every twelve hoursFluticasone Propion-Salmeterol (Advair Hfa) 115-21 mcg/actuation HFA aerosol inhaler Discontinued 2PUFF INHALATION Every 12 hours 12 27 09November 26, 2024 10:19am February 12, 2025 6:38am On Hold:NoneStart: 11-26-2024 End: 91-19-9600oupj 1 puff(s) by inhalation every twelve hoursFluticasone Propion-Salmeterol (Advair Hfa) 115-21 mcg/actuation HFA aerosol inhaler Discontinued 2PUFF INHALATION Every 12 hours 10 27November 26, 2024 10:19am February 12, 2025 6:38am On Hold: NoneStart: 68-80-3754ytey 1 puff(s) by inhalation every twelve hoursFluticasone Propion-Salmeterol (Advair Hfa) 115-21 mcg/actuation HFA aerosol inhaler Active 2 PUFF INHALATION Every 12 hours 10 27November 26, 2024 10:19am On Hold: NoneStart: 91-71-4580yrzj 1 puff(s) by inhalation every twelve hoursFluticasone Propion-Salmeterol (Advair Hfa) 115-21 mcg/actuation HFA aerosol inhaler Active 2 PUFF INHALATION Every 12 hours 10 27November 26, 2024 9:19am On Hold: NoneStart: 05-17-2023 End: 82-79-3378ebvq 1 puff(s) by inhalation twice dailyFluticasone Propion- Salmeterol (Advair Hfa) 115-21 mcg/actuation HFA aerosol inhaler Discontinued 2 PUFF INHALATION Twice daily May 17, 2023 12:00am November 26, 2024 10:19am Start: 05-17-2023 End: 59-73-9302ttad 1 puff(s) by inhalation twice dailyFluticasone Propion- Salmeterol (Advair Hfa) 115-21 mcg/actuation HFA aerosol inhaler Discontinued 2 PUFF INHALATION Twice daily May 16, 2023 11:00pm November 26, 2024 9:19am Start: 17-22-4062pwzq 1 puff(s) by inhalation twice dailyFluticasone Propion- Salmeterol (Advair Hfa) 115-21 mcg/actuation HFA aerosol inhaler Active 2 PUFF I NHALATION Twice daily May 16, 2023 11:00pmStart: 72-21-4508lkdn 1 puff(s) by inhalation twice dailyFluticasone Propion-Salmeterol (Advair Hfa) 115-21 mcg/actuation HFA aerosol inhaler Active 2 PUFF INHALATION Twice daily May 17, 2023 12:00amStart: 01-00-8144zgfw 2 puff(s) by inhalation twice daily Fluticasone-Salmeterol 115-21 MCG/ACT 2 puffs Inhalation Twice a day Apr, Active End: 11-38-9699ryil 2 puff(s) by inhalation in the morningfluticasone-salmeterol (Advair) 45-21 MCG/ACT inhaler Inhale 2 puffs in the morning and 2 puffs before bedtime. Rinse mouth with water after use to reduce aftertaste and incidence of candidiasis. Do not swallow. 02/25/2025 Discontinued (Therapy completed) irbesartan 150 mg oral tablet (20 sources)Angiotensin 2 Receptor BlockerStart: 11-28-2022 End: 93-72-3735tjxz 1 tablet by mouth once daily in the morningIrbesartan 150 mg tablet Discontinued 150 MG PO Every morning March 08, 2023 12:00am February 27, 2024 10:37amtake 1 tablet by mouth twice dailyIrbesartan 150 MG 1 tablet Orally twice daily Activelevothyroxine sodium 0.075 mg oral tablet (18 sources)l-ThyroxineStart: 02-19-2024 End: 00-23-3124bcgq 1 tablet by mouth once dailyLevothyroxine 75 mcg tablet Discontinued 75 MCG PO Daily February 26, 2024 12:00am September 15, 2024 10:40amlosartan potassium 50 mg oral tablet (20 sources)Angiotensin 2 Receptor BlockerStart: 01-31-2024 End: 86-64-0288wgal 1 tablet by mouth twice dailyLosartan 50 mg tablet Discontinued 50 MG PO Twice daily January 31, 2024 12:00am February 26, 2024 10: 53amStart: 16-05-8957dkvn 1 tablet by mouth twice dailyLosartan Potassium 50 MG 1 tablet Orally twice daily May, Active End: 26-13-0879pywc 1 tablet by mouth once dailylosartan (COZAAR) 100 mg tablet Take 100 mg by mouth once daily. 07/08/2025 Discontinued (Discontinued by another Health Care Provider)take 1 tablet by mouth once dailyLosartan Potassium 50 MG 1 tablet Orally Once a day for 90 days ActiveComment on above:Take 100 mg by mouth once daily.MULTI-VITAMIN ORAL (9 sources) End: 10-89-5734VYKNQ-VITAMIN ORAL Take by mouth. 07/08/2025 Discontinued (Discontinued by another Health Care Provider)MULTI-VITAMIN ORAL Take by mouth. ActiveMULTI-VITAMIN ORAL Take by mouth. 0 ActiveComment on above:Take by mouth. Multivitamin preparation (7 sources)Start: 03-08-2023 End: 40-72-5664khss 1 tablet by mouth once dailyMultivitamin Discontinued 1 TAB PO Daily March 08, 2023 12:00am May 17, 2023 10:50amStart: 56-11-0530myio 1 tablet by mouth once dailyMultivitamin Active 1 TAB PO Daily March 08, 2023 12:00amMultivitamin Tablet (12 sources)Start: 03-08-2023 End: 23-15-1730dwug 1 tablet by mouth once dailyMultivitamin Tablet Discontinued 1 TAB PO Daily March 08, 2023 12:00am May 17, 2023 10:50amStart: 03-08-2023 End: 29-80-6156zsri 1 tablet by mouth once dailyMultivitamin Tablet Discontinued 1 TAB PO Daily March 07, 2023 11:00pm May 17, 2023 9:50am24 hr nitroglycerin 0.2 mg/hr transdermal system (20 sources)Nitrate VasodilatorStart: 03-08-2023 End: 12-67-6722shdaw 0.2 mg transdermal route every hourNitroglycerin 0.2 mg/hr patch 24 hour Discontinued 0.2 MG TRANSDERML Daily March 08, 2023 12:00am May 17, 2023 10:50amStart: 03-08-2023 End: 08-89-7654Xixnsrdjvwtcg Discontinued 0.2 MG TRANSDERML Daily March 08, 2023 12:00am May 17, 2023 10:50amStart: 80-09-4973bludm 1 dose transdermal route once daily, then apply 1 dose transdermal route every twenty-four hours Nitroglycerin 0.2 MG/HR Transdermal Patch 24 Hour APPLY PATCH FOR 12 TO 14 HOURS DAILY, THEN REMOVEQuantity: 90 Refills: 3 Ordered: 07-Mar-2023 Edinson Perry DO Start : 07-Mar-2023 Active new startnystatin 239085 unt/ml oral suspension (6 sources)Polyene AntifungalStart: 02-16-2025 End: 46-86-5425xqsw 1 mL by mouth four times dailyNystatin 100,000 unit/mL suspension Discontinued 5 ML PO Four times daily 140 7 0 February 16, 2025 1 2:00am March 19, 2025 11:47am swish for 30 seconds and swallowNystatin 100,000 unit/mL suspension (1 source)Start: 02-16-2025 End: 52-92-5861ogyb 1 mL by mouth four times dailyNystatin 100,000 unit/mL suspension Discontinued 5 ML PO Four times daily 140 7 February 16, 2025 12:00am March 19, 2025 11:47am swish for 30 seconds and swallowpotassium chloride 10 meq extended release oral tablet (20 sources)Start: 52-64-9947npst 1 tablet by mouth twice dailypotassium chloride (K-TAB) 10 mEq tablet Take 10 mEq by mouth two times a day. 04/26/2023 ActiveStart: 03-08-2023 End: 85-65-4938Vgqznjftk Chloride 10 mEq tablet extended release Discontinued 10 MEQ PO EVERY 3 WEEKS March 08, 2023 12:00am April 22, 2024 1:22pm 3 times a week on even daysStart: 03-08-2023 End: 77-06-9547nzzc 1 tablet by mouth once dailyPotassium Chloride [...] tablet (20 sources)HMG-CoA Reductase InhibitorStart: 03-08-2023 End: 41-24-9323kxxk 1 tablet by mouth once daily in the eveningPravastatin 40 mg tablet Discontinued 40 MG PO Every evening March 08, 2023 12:00am February 012:10pmComment on above:Take 40 mg by mouth every evening.predniSONE 20 mg oral tablet (20 sources)Start: 35-45-1029tacd 1 tablet by mouth every twelve hourspredniSONE 20 MG 1 tablet with food or milk Orally Twice a day for 3 day(s) February, Not-Takingpsyllium 400 mg oral capsule (6 sources)Start: 03-08-2023 End: 46-39-6131Chjhunos Husk (Metamucil) 0.4 gram Capsule Discontinued 0.4 GM PO Daily as needed for Constipation March 08, 2023 12:00am May 17, 2023 10:50am Psyllium Husk (Metamucil) 0.4 gram Capsule (13 sources)Start: 03-08-2023 End: 44-28-9295Vgjsfucg Husk (Metamucil) 0.4 gram Capsule Discontinued 0.4 GM PO Daily as needed for Constipation March 08, 2023 12:00am May 17, 2023 10:50am Start: 03-08-2023 End: 88-13-5112Onmghume Husk (Metamucil) 0.4 gram Capsule Discontinued 0.4 GM PO Daily as needed for Constipation March 07, 2023 11:00pm May 17, 2023 9:50am Start: 03-08-2023 End: 27-49-5596Mupqsfdp Husk (Metamucil) 0.4 gram Capsule Discontinued 0.4 GM PO Daily March 08, 2023 12:00am 2022 10:50amStart: 13-13-6932Denupvrx Husk (Metamucil) 0.4 gram Capsule Active 0.4 GM PO Daily March 08, 2023 12:00am regadenoson (Lexiscan) injection 0.4 mg (1 source)Start: 03-12-2024 End: .4 mg, intravenous, Once, On Sun03/12/24 at 0915, For 1 dose rOPINIRole 0.25 mg oral tablet (20 sources)Nonergot Dopamine AgonistStart: 11-23-2022 End: 18-36-7738lgti 1 tablet by mouth once dailyRopinirole 0.25 mg tablet Discontinued 0.25 MG PO Daily 90 90 3 December 18, 2023 10:31am February 27, 2024 10:38amsacubitril 24 mg / valsartan 26 mg oral tablet (20 sources)Angiotensin 2 Receptor BlockerStart: 02-20-2024 End: 35-54-5666pyom 1 tablet by mouth twice dailySacubitril-Valsartan (Entresto) 24-26 mg tablet Discontinued 1 TAB PO Twice daily February 26, 2024 12:00am March 19, 2024 2:54pmStart: 41-16-1117oagb 1 tablet by mouth in the morningEntresto 24-26 MG tablet Take 1 tablet by mouth in the morning and 1 tablet in the evening. 02/20/2024 Activesulfamethoxazole 800 mg / trimethoprim 160 mg oral tablet (20 sources)Dihydrofolate Reductase Inhibitor Antibacterial, Sulfonamide AntimicrobialStart: 02-68-2115hevs 1 tablet by mouth every twelve hoursBactrim [...] mg oral capsule (20 sources)BenzodiazepineStart: 12-21-2022 End: 52-50-9139qqkh 1 capsule by mouth once daily at bedtimeTemazepam 15 mg capsule Discontinued 15 MG PO Daily at bedtime March 08, 2023 12:00am June 13, 2024 2:15pmTemazepam Not-TakingComment on above:Take by mouth at bedtime as needed.ticagrelor 90 mg oral tablet (20 sources)Start: 03-09-2023 End: 85-72-7106lsba 1 tablet by mouth twice dailyTicagrelor (Brilinta) 90 mg tablet Discontinued 90 MG PO Twice daily 180 3 March 09, 2023 12:00am May 17, 2023 2:07pm Problems Active Problems Problem ClassificationProblemDateDocumented DateEpisodic/ChronicAcute bronchitis (20 sources)Acute bronchitis; Translations: [Acute bronchitis, unspecified] Onset: 15-66-1517WuyxxgewBhkmeeb disorders (20 sources)Generalized anxiety disorder; Translations: [Generalized anxiety disorder]Onset: 35-54-7040NztwxtkZuncgep dysrhythmias (20 sources)Palpitations; Translations: [Bradycardia, unspecified]Onset: 70-12-9791QpgenvkjKqbiomm kidney disease (20 sources)Chronic kidney disease; Translations: [Chronic kidney disease, unspecified]02-02-0010GnigmlrKryynaz obstructive pulmonary disease and bronchiectasis (20 sources)Simple chronic bronchitis; Translations: [Simple chronic bronchitis] Onset: 94-56-8675DvkobnnNkpnmsozul heart failure; nonhypertensive (20 sources)Acute on chronic diastolic heart failure; Translations: [Acute on chronic diastolic (congestive) heart failure]Onset: 01-98-9129XjeexeuHyxolut on above:- LHC w/ PCI/stent LAD, RCA [...] III; Translations: [Other and unspecified angina pectoris]Onset: 11-49-3854NztykjkLlrezkn on above:LHC w/ PCI/stent LAD, RCA (Feb, 2023)Problem List clean-up per request of Phys. EHR CmteDeficiency and other anemia (1 source)Anemia of chronic disease; Translations: [Anemia in other chronic diseases classified elsewhere]30-16-2974QgtkybjLlrxgxgxko and other anemia (1 source)Anemia in other chronic diseases classified elsewhere; Translations: [Anemia in other chronic diseases classified elsewhere]Onset: 28-97-0736Czeabjq Deficiency and other anemia (20 sources)Anemia; Translations: [Anemia, unspecified]Onset: 11-24-2024 47-10-5755RsspxcigKionmiwxfp and other anemia (9 sources)Anemia, unspecified; Translations: [Anemia, unspecified]Onset: 42-00-6824HyllinsqXatxxfpt of mouth; excluding dental (20 sources)Stomatitis; Translations: [Other forms of stomatitis] Resolved: 89-11-1637ZhariyjyBwrshsple of lipid metabolism (20 sources)Pure hypercholesterolemia; Translations: [Familial hypercholesterolemia]Onset: 64-64-6584LwxxrjaTnnjsns on above:Problem List clean-up per request of Phys. EHR CmteE Codes: Adverse effects of medical drugs (20 sources)Adverse reaction to drug; Translations: [Adverse effect of unspecified drugs, medicaments and biological substances, subsequent encounter] EpisodicEsophageal disorders (20 sources)Gastro-esophageal reflux disease with esophagitis; Translations: [Gastroesophageal reflux disease with esophagitis without hemorrhage]Onset: 51-65-291962984121-52-0165GwwnredQrayhlswd hypertension (20 sources)Essential hypertension; Translations: [Essential (primary) hypertension]Onset: 37-69-4114RmvazvlYnzplyz on above:Problem List clean-up per request of Phys. EHR CmteGenitourinary symptoms and ill-defined conditions (20 sources)Urinary tract infectious disease; Translations: [Unspecified symptoms and signs involving the genitourinary system]EpisodicHeadache; including migraine (20 sources)Episodic tension-type headache; Translations: [Episodic tension-type headache, not intractable]Onset: 16-84-8897HjlbgmwXlgdqbrluqns with complications and secondary hypertension (20 sources)Hypertensive heart disease with heart failure; Translations: [Hypertensive emergency]Onset: 543989-27-4401LguwxkxSmhrdzd on above: Problem List clean-up per request of Phys. EHR CmteImmunizations and screening for infectious disease (20 sources)Other specified abnormal immunological findings in serum; Translations: [Abnormal blood test]Onset: 372462-73-7347Hititpff Lymphadenitis (20 sources)Submandibular lymphadenopathy; Translations: [Localized enlarged lymph nodes]Onset: 65-82-6789LsveclfxJgmzxlk and fatigue (20 sources)Malaise; Translations: [Other malaise] Resolved: 009581-80-9416VkhpwlkuIdxobyipna disorders (20 sources)Atrophic vaginitis; Translations: [Postmenopausal atrophic vaginitis]Onset: 195656-67-7444HbciqeyEcxzplzmsnptj mental health disorders (20 sources)Primary insomnia; Translations: [Primary insomnia]ChronicNeoplasms of unspecified nature or uncertain behavior (20 sources)Monoclonal paraproteinemia; Translations: [Monoclonal gammopathy] ChronicOsteoarthritis (20 sources)Osteoarthritis; Translations: [Polyosteoarthritis, unspecified] Onset: 35-55-9485WozmjbwJwudg aftercare (1 source)MCFP (current) use of aspirin; Translations: [PENITENTIARY CURRENT USE OF ASPIRIN]Onset: 90-45-6326SaqjwtxdAtolm aftercare (1 source)Other buttermaker helper (current) drug therapy; Translations: [OTH PENITENTIARY CURRENT DRUG THERAPY]Onset: 13-84-5545QnrdddcjZjron and ill-defined heart disease (2 sources)Heart disease; Translations: [Heart disease, unspecified]06-06-2023 ChronicOther and ill-defined heart disease (1 source)Heart disease, unspecified; Translations: [Heart disease]Onset: 46-74-6423AyouptiDbked and unspecified benign neoplasm (20 sources)Lipoma of [...] lower limb; Translations: [Sleep related leg cramps] 21-46-6836OstrpoyTdfsh connective tissue disease (2 sources)Sleep related leg cramps; Translations: [Sleep related leg cramps] 72-42-2628UvjmlfoSouiv connective tissue disease (20 sources)Radial styloid tenosynovitis; Translations: [Radial styloid tenosynovitis [de Quervain]]53-01-1870UuatjebtQjrkq connective tissue disease (20 sources)Pain in right lower limb; Translations: [Pain in right leg]Episodic Other connective tissue disease (20 sources)Trochanteric bursitis of right hip; Translations: [Trochanteric bursitis, right hip]EpisodicOther connective tissue disease (1 source)Radial styloid tenosynovitis [de Quervain]; Translations: [Radial styloid tenosynovitis [de Quervain]]EpisodicOther diseases of veins and lymphatics (20 sources)Peripheral venous insufficiency; Translations: [Venous insufficiency (chronic) (peripheral)]Onset: 349955-42-0268VydlbizoZtamp diseases of veins and lymphatics (20 sources)Venous insufficiency (chronic) (peripheral); Translations: [Venous (peripheral) insufficiency, unspecified]Onset: 35-31-3706CuwpuxrxDjnxf diseases of veins and lymphatics (20 sources)Stasis dermatitis; Translations: [Venous insufficiency (chronic) (peripheral)]EpisodicOther endocrine disorders (20 sources)Disorder of adrenal gland; Translations: [Disorder of adrenal gland, unspecified]ChronicOther endocrine disorders (20 sources)Other specified disorders of adrenal gland; Translations: [Nodule of adrenal cortex (disorder)]ChronicOther endocrine disorders (1 source)Disorder of adrenal gland, unspecifiedChronicOther endocrine disorders (20 sources)Adrenal mass; Translations: [Other specified disorders of adrenal gland]Onset: 756189-44-2990AfmjzaqAveme eye disorders (20 sources)Ptosis of eyelid; Translations: [Unspecified ptosis of right eyelid] EpisodicOther female genital disorders (20 sources)Noninflammatory disorder of the vagina; Translations: [Other specified noninflammatory disorders ofvagina]EpisodicOther gastrointestinal disorders (20 sources)Irritable bowel syndrome with diarrhea; Translations: [Irritable bowel syndrome with diarrhea]46-73-0473WmjosiiTxbpw hematologic conditions (5 sources)Protein electrophoresis abnormal; Translations: [Other specified abnormalities of plasma proteins]EpisodicOther hematologic conditions (2 sources)Other specified abnormalities of plasma proteins; Translations: [OTH SPEC ABNORM PLASMA PROTEINS]Onset: 26-15-4818HhlutijzQmvqt hereditary and degenerative nervous system conditions (20 sources)Restless legs; Translations: [Restless legs syndrome]01-31-2024 ChronicOther hereditary and degenerative nervous system conditions (5 sources)Restless legs syndrome; Translations: [Restless legs syndrome]Onset: 18-67-3237HshnhtxPsekf injuries and conditions due to external causes [...] sources)Shortness of breath; Translations: [SHORTNESS OF BREATH]Onset: 95-32-9328IbnhamafLpfyq lower respiratory disease (20 sources)Acute cardiac pulmonary edema ; Translations: [Acute pulmonary edema]Onset: 879817-47-6796MicoxcfrSxgmsbd on above:Problem List clean-up per request of Phys. EHR CmteOther lower respiratory disease (18 sources)Hypoxia; Translations: [Hypoxemia]40-91-9281KtbphscsPhdijlz on above:Problem List clean-up per request of Phys. EHR CmteOther lower respiratory disease (1 source)Acute pulmonary edema; Translations: [Acute edema of lung, unspecified]71-16-0722MlofxbreAlfss lower respiratory disease (1 source)Hypoxemia; Translations: [Hypoxemia]36-71-3699HsrjyowuYlhij nervous system disorders (20 sources)Neuropathy; Translations: [Polyneuropathy, [...] tenderness; Translations: [Other disturbances of skin sensation] 74-68-1732IyjwxmffScuie non-traumatic joint disorders (20 sources)Arthralgia of the [...] knee; Translations: [Chronic pain of right knee] 12-73-7403JrpvwdakWmvbp non-traumatic joint disorders (1 source)Hip pain; Translations: [Pain in right hip]84-09-5626BhzsqucqEckie nutritional; endocrine; and metabolic disorders (20 sources)Simple obesity ; Translations: [Exogenous obesity]44-72-5546Xkrftpc Other nutritional; endocrine; and metabolic disorders (20 sources)Obese class I; Translations: [Obesity, unspecified]ChronicOther nutritional; endocrine; and metabolic disorders (2 sources)Obesity, unspecifiedChronicOther nutritional; endocrine; and metabolic disorders (20 sources)Obesity; Translations: [Obesity, unspecified]06-01-3936XaccyezVgrym nutritional; endocrine; and metabolic disorders (20 sources)Obesity caused by energy imbalance; Translations: [Other obesity due to excess calories]ChronicOther nutritional; endocrine; and metabolic disorders (20 sources)Body mass index 30+ - obesity; Translations: [Body mass index (BMI) 32.0-32.9, adult]Onset: 019989-51-1424MamcejxSsugv nutritional; endocrine; and metabolic disorders (4 sources)Other obesity due to excess caloriesChronicOther nutritional; endocrine; and metabolic disorders (5 sources)Body mass index (BMI) 32.0-32.9, adult; Translations: [Body mass index (BMI) 32.0-32.9, adult]Onset: 54-35-6739KhzltiqSfkey nutritional; endocrine; and metabolic disorders (3 sources)Body mass index (BMI) 33.0-33.9, adult; Translations: [Body mass index (BMI) 33.0-33.9, adult]Onset: 40-68-6786QaltlktCgcri screening for suspected conditions (not mental disorders or infectious disease) (20 sources)Encounter for screening mammogram for malignant neoplasm of breast; Translations: [Cardiovascular stress test abnormal]Onset: 97-59-1513Znlfagsj Comment on above:Problem List clean-up per request of Phys. EHR CmteOther skin disorders (1 source)Localized swelling, mass and lump, neckEpisodicOther skin disorders (4 sources)Hemosiderin pigmentation of skin; Translations: [Other specified disorders of pigmentation]62-63-0887EumzqeecZjkak upper respiratory disease (20 sources)Seasonal allergic rhinitis; Translations: [Other seasonal allergic rhinitis]Onset: 30-14-4739QcsccncGrpbo upper respiratory disease (20 sources)Allergic rhinitis; Translations: [Allergic rhinitis, unspecified] Onset: 94-37-5470HwijkusCgfan upper respiratory disease (20 sources)Vasomotor rhinitis; Translations: [Vasomotor rhinitis]Onset: 03-98-2772DlhsestWkrgu upper respiratory infections (20 sources)Acute sinusitis; Translations: [Acute sinusitis, unspecified]Onset: 42-47-8380PhkzcqmdStzowg media and related conditions (20 sources)Otitis media; Translations: [Otitis media, unspecified, unspecified ear]56-07-1807NxfimbnkEfyrjcssqg and visceral atherosclerosis (1 source)Atherosclerosis of tan[place] arteries of extremities with intermittent claudication, bilateral legs; Translations: [Atherosclerosis of tanana arteries of extremities with intermittent claudication, bilateral legs]Onset: 08-19-2025 ChronicPneumonia (except that caused by tuberculosis or sexually transmitted disease) (1 source)Pneumonia, unspecified organism; Translations: [PNEUMONIA UNSPECIFIED ORGANISM]Onset: 96-91-4133XkytxoagKutfrfwob heart disease (20 sources)Pulmonary hypertension; Translations: [Pulmonary hypertension, unspecified]ChronicResidual codes; unclassified (12 sources)Asymptomatic menopausal state; Translations: [Menopause]Episodic Residual codes; unclassified (20 sources)Menopause present; Translations: [Asymptomatic menopausal state] 19-79-4405ZngzeucyUjbqvtiv codes; unclassified (1 source)Family history of malignant neoplasm of bladder; Translations: [FAM HX MALIGNANT NEOPLASM BLADDER]Onset: 41-56-2548CjskwopeHmuugisr codes; unclassified (1 source)Family history of malignant neoplasm of digestive organs; Translations: [FAM HX MALIG NEOPLASM DIGESTIV ORGN]Onset: 18-03-8053Keiyvmdo Residual codes; unclassified (1 source)Family history of other malignant neoplasms of lymphoid, hematopoietic and related tissues; Translations: [FAM HX OTH MAL TANJA LYMPH HEMATPOETC]Onset: 36-72-8460SfsmswhmKuhgvfbz codes; unclassified (1 source)Family history of malignant neoplasm of trachea, bronchus and lung; Translations: [FAM HX MALIG NEOPLSM TRACH BRON LNG]Onset: 87-68-9266Dqkklnun Residual codes; unclassified (20 sources)Postmenopausal state; Translations: [Asymptomatic menopausal state] EpisodicResidual codes; unclassified (19 sources)Symptom: generalized; Translations: [Other general symptoms and signs]EpisodicResidual codes; unclassified (1 source)Other general symptoms and signs; Translations: [Other general symptoms and signs]EpisodicResidual codes; unclassified (1 source)Edema; Translations: [Edema, unspecified]99-17-8799DihctyzlBsttbxhv codes; unclassified (4 sources)Bilateral lower limb edema; Translations: [Localized edema]08-04-2025 EpisodicResidual codes; unclassified (1 source)Localized edema; Translations: [Localized edema]Onset: 08-19-2025 EpisodicRespiratory failure; insufficiency; arrest (adult) (2 sources)Requires continuous home oxygen supply; Translations: [Dependence on supplemental oxygen]55-96-5208ThsgjeeLeyswkuilic failure; insufficiency; arrest (adult) (3 sources)Acute respiratory failure with hypoxia; Translations: [Acute hypoxemic respiratory failure]Onset: 694471-16-8413SofqdvjqOiplaolvjtb failure; insufficiency; arrest (adult) (1 source)Respiratory failure; insufficiency; arrest (adult)Retinal detachments; defects; vascular occlusion; and retinopathy (8 sources)Epiretinal membrane of left eye; 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, left eye]Onset: 248002-52-4211UmuqaluQxge and subcutaneous tissue infections (2 sources)Cellulitis of right fingerEpisodicSpondylosis; intervertebral disc disorders; other back problems (20 sources)Cervical spondylosis without myelopathy; Translations: [Other spondylosis with radiculopathy, cervical region]Onset: ChronicSprains and strains (20 sources)Neck sprain; Translations: [Strain of muscle, fascia and tendon at neck level, initial encounter]Onset: 04-05-2016 Resolved: 66-02-9201TwhhvkxsHarezkjmn-related disorders (20 sources)Tobacco user; Translations: [Nicotine dependence, cigarettes, in remission]ChronicThyroid disorders (20 sources)Goiter; Translations: [Iodine-deficiency related diffuse (endemic) goiter]91-65-8865LrhfjicGmdjwos on above:US: right 16mm TR4, left 5-7mm TR4 - 08/2024US: right 16mm TR4, left 5-7mm TR4 - 08/2024FNA: right nodule 11/17/24US: right 16mm TR4, left 5-7mm TR4 - 08/2024,FNA: right nodule - 11/17/24,US: no change - 01/2025Unclassified (3 sources)CONTACT W/AND (SUSP) EXPOS COVID-19; Translations: [CONTACT W/AND (SUSP) EXPOS COVID-19]Onset: 75-27-0535Dsiwyair veins of lower extremity (5 sources)Varicose veins of lower extremity; Translations: [Varicose veins of bilateral lower extremities with other complications]Onset: 439203-96-7020 EpisodicViral infection (20 sources)COVID-19; Translations: [Disease caused by 2019-nCoV]Onset: 05-08-2022 Past or Other Problems Problem ClassificationProblemDateDocumented DateEpisodic/ChronicCoronary atherosclerosis and other heart disease (4 sources)Patient post percutaneous transluminal coronary angioplasty; Translations: [Percutaneous transluminal coronary angioplasty status]Onset: 244827-34-1705RznhbxnlFwoivypdid disorders (20 sources)Esophageal disorders; Translations: [Gastroesophageal reflux disease with esophagitis without hemorrhage]Headache; including migraine (20 sources)Headache; Translations: [Headache, unspecified]Onset: 10-19-2015 EpisodicInflammation; infection of eye (except that caused by tuberculosis or sexually transmitteddisease) (8 sources)Blepharitis of upper and lower eyelids of bilateral eyes; Translations: [Unspecified blepharitis right eye, upper and lower eyelids]Onset: 758421-04-5383MujjjgndTodiprd (20 sources)Candidiasis of mouth; Translations: [Candidal stomatitis]Onset: 86-41-2048VedjkdnrKidzmaqruzke breast conditions (20 sources)Pain of breast; Translations: [Mastodynia] Resolved: 90-36-0281KdxloqcpQsvjanviqlr chest pain (20 sources)Precordial pain; Translations: [Chest pain]Onset: 44-30-3169Nmbfubyy Other connective tissue disease (20 sources)Shoulder lesion, unspecified, left shoulder; Translations: [Shoulder lesion, unspecified, left shoulder]Onset: 38-90-7890GpplrintJgrzf eye disorders (8 sources)Dry eyes; Translations: [Dry eye syndrome of bilateral lacrimal glands]Onset: 421112-40-0219SklpnzmeDlxeq lower respiratory disease (20 sources)Cough; Translations: [Cough, unspecified]Onset: 63-20-3040Scgvnjvw Other lower respiratory disease (10 sources)Dyspnea; Translations: [Shortness of breath]Onset: 10-17-2023 82-90-3479GtdzqqyoUrkrd nervous system disorders (19 sources)Tremor; Translations: [Tremor, unspecified]Onset: 14-47-7299Jbtlpjyg Other nervous system disorders (19 sources)Atypical facial pain; Translations: [Atypical facial pain]Onset: 12-15-7776WaginnoqLdsvr nervous system disorders (1 source)Tremor, unspecified; Translations: [Tremor, unspecified]Onset: 49-86-5127DbtmtppsArxoy nervous system disorders (1 source)Atypical facial pain; Translations: [Atypical facial pain]Onset: 85-91-9303LfzbbotjOuldm non-traumatic joint disorders (19 sources)Shoulder joint pain; Translations: [Pain in left shoulder]Onset: 93-18-1154AklttiqrHbvxh non-traumatic joint disorders (1 source)Pain in left shoulder; Translations: [Pain in left shoulder]Onset: 91-41-5035EstjoyltVwwbmwsu codes; unclassified (20 sources)Insomnia; Translations: [Insomnia, unspecified]Onset: 06-23-2015 EpisodicScreening and history of mental health and substance abuse codes (20 sources)Ex-smoker; Translations: [Personal history of tobacco use]Onset: 530487-96-3498DzigltppMprmhoz on above:1997;Spondylosis; intervertebral disc disorders; other back problems (20 sources)Neck pain; Translations: [Cervicalgia]Onset: 97-50-2336Bbhmcurx Superficial injury; contusion (20 sources)Contusion of ankle; Translations: [Contusion of unspecified ankle, initial encounter]Onset: 93-18-6464McfdmsegFpiljdmdetsl (3 sources)Patient status finding; Translations: [Patient new to provider] Unclassified (1 source)CONTACT W/AND (SUSP) EXPOS COVID-19; Translations: [CONTACT W/AND (SUSP) EXPOS COVID-19]Onset: 32-04-5102Sjnljxtjsccr (20 sources)Acute candidiasis of vulva and vagina; Translations: [Acute candidiasis of vulva and vagina] Resolved: 15-85-7182Glyuwtmetagj (1 source)Subacute cough R05.2Unclassified (1 source)Post COVID-19 condition, 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Unclassified (1 source)Chronic cough R05.3Unclassified (10 sources)Onset: 03-05-2024 Resolved: 932720-49-6835Fciscfv tract infections (20 sources)Urethral syndrome; 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, unspecified] Resolved: 64-13-7958PxllrfzoRchhb infection (17 sources)Disease caused by 2019-nCoV; Translations: [COVID-19]Onset: 429056-93-8487Fjfleerf Results Test NameValueInterpretationReference RangeFacilityUS arterial pvr rest [place] 34-68-5652XO arterial pvr rest [facility] [place] [address] Ultrasound Report Signed Patient: Lashaun Joaquin MR#: [id number] [birth year] : 1940 Acct:[id number] Age/Sex: 84 / F ADM Date: 08/19/25 Loc: Room: Type: [facility] Attending Dr: Kaia Krishna [employer] Ordering Provider: Kaia Krishna APRN Date of [...] Menard M.D. 08/19/2025 12:27 PM Dictation Location: [place] [address] Tech: Darcy Kraft Transcribed By: LAURA 08/19/25 1227 Dictated By: Juan Jose Menard MD 08/19/256 Signed By: 08/19/25 [facility] Physician GroupUS venous duplex LE [facility] 30-61-4297GI venous duplex LE [facility] [address] [place] [address] [place] [address] Ultrasound Report Signed Patient: Lashaun Joaquin MR#: [id number] [birth year] : 1940 Acct:[id number] Age/Sex: 84 / F ADM Date: 08/19/25 Loc: Room: Type: [facility] Attending Dr: Kaia Krishna [employer] Ordering Provider: Kaia Krishna APRN Date of [...] cm throughout. There was some varicosities and supervising appraiser sutures also identified which all measure less [...] Menard M.D. 08/19/2025 12:30 PM Dictation Location: [facility]-04 Tech: Darcy Kraft Transcribed By: LAURA 08/19/25 1230 Dictated By: Juan Jose Menard MD 08/19/25 1227 Signed By: 08/19/25 1230[facility] Physician GroupGlomerular filtration rate (GFR) estimation in non- AmericanOrdered By: Agueda Fields on 08-16-2025 GFR/1.73 sq M.predicted among non-blacks MDRD (S/P/Bld) [Vol rate/Area]38 mL/min/{1.73_m2}Low>=60 mL/min/1.73m 2[facility] - Chemistry and Chemistry - challengeOrdered By: Agueda Fields on 05-79-5135Wjdhylt [Mass/Vol]8.3 mg/dLLow8.5-10.1FC[facility] HospitalChloride [Moles/Vol]97 mmol/HPqw06-059ZgqlouhixMary Rutan HospitalCO2 [Moles/Vol]27.1 mmol/L21.0-32.0[facility] HospitalCreatinine [Mass/Vol]1.33 mg/dLHigh0.55-1.02[facility] HospitalGFR/1.73 sq M.predicted MDRD (S/P/Bld) [Vol rate/Area]46 mL/min/{1.73_m2}Low>=60 mL/min/1.73m 2[facility] HospitalGlucose [Mass/Vol]93 mg/jI51-376 [facility] HospitalPotassium [Moles/Vol]4.2 mmol/L3.5-5.1FWadsworth-Rittman Hospitalodium [Moles/Vol]134 mmol/CXay147-274TpyrfzwdsMary Rutan HospitalUrea nitrogen [Mass/Vol]30.0 mg/dLHigh7.0-18.0[facility] HospitalUrea nitrogen/Creatinine [Mass ratio]22.6 mg/mgSelect [facility]ty Hospital [facility] Northerum or plasma anion gap determinationOrdered By: Agueda Fields on 30-04-3707Xpvjx gap [Moles/Vol]14.1 mmol/LFCleveland Clinic [facility] Erythrocyte distribution width Auto (RBC) [Ratio]Ordered By: Agueda Azarr on 14-38-3390Apktqtrzrhh distribution width (RBC) [Ratio]13.6 %11.0-15.0[facility] HospitalGlomerular filtration rate (GFR) estimation in non- AmericanOrdered By: Agueda Azarr on 43-99-8948EIY/1.73 sq M.predicted among non-blacks MDRD (S/P/Bld) [Vol rate/Area]35 mL/min/{1.73_m2}Low>=60 mL/min/1.[address]m [address] [place], [place] [address]Hematocrit Auto (Bld) [Volume fraction]Ordered By: Agueda Fields on 98-83-1707Rnhmyaavba (Bld) [Volume fraction]22.7 %Critically low36.0-48.0[facility] HospitalComment on above:RESULTS CALLED TO MAI OTERO RNHemoglobin [Mass/volume] in Blood Ordered By: Agueda Fields on 71-81-7373Qhberhlups (Bld) [Mass/Vol]7.6 g/dLLow 12.0-16.0[facility] HospitalLaboratory - Chemistry and Chemistry - challengeOrdered By: Agueda Fields on 43-89-8801Snqmlxv [Mass/Vol]8.4 mg/dL Low8.5-10.1FC[facility] HospitalChloride [Moles/Vol]99 mmol/L98-107 [facility] HospitalCO2 [Moles/Vol]25.5 mmol/L21.0-32.0[facility] HospitalCreatinine [Mass/Vol]1.42 mg/dLHigh0.55-1.02[facility] HospitalGFR/1.73 sq M.predicted MDRD (S/P/Bld) [Vol rate/Area]43 mL/min/{1.73_m2}Low>=60 mL/min/1.73m 2FC[facility] HospitalGlucose [Mass/Vol]97 mg/xD76-328TbeujdurbMary Rutan HospitalPotassium [Moles/Vol] 4.1 mmol/L3.5-5.1FWadsworth-Rittman Hospitalodium [Moles/Vol]136 mmol/L 136-145[facility] HospitalUrea nitrogen [Mass/Vol]30.0 mg/dLHigh 7.0-18.0[facility] HospitalUrea nitrogen/Creatinine [Mass ratio] 21.1 mg/mgMary Rutan HospitalLeukocytes [#/volume] corrected for nucleated erythrocytes in Blood by Automated counOrdered By: Agueda Fields on 93-53-2660SRD corrected for nucl RBC Auto (Bld) [#/Vol]4.8 10 3/uL4.0-11.0 [facility] HospitalMC Auto (RBC) [Entitic mass]Ordered By: Agueda Fields on 22-46-5962WFZ (RBC) [Entitic mass]29.2 pg26.7-34.0[facility] HospitalMCHC Auto (RBC) [Mass/Vol]Ordered By: Agueda Fields on 33-30-7805WOHD (RBC) [Mass/Vol]33.5 g/dL29.9-35.2FC[facility] HospitalMCV Auto (RBC) [Entitic vol]Ordered By: Oblubadapito Daromar on 61-60-0024JGN (RBC) [Entitic vol]87.3 fL81.0-99.0[facility] HospitalPlatelet mean volume Auto (Bld) [Entitic vol]Ordered By: Obaydah Daromar on 08-15-2025 Platelet mean volume (Bld) [Entitic vol]10.1 fL9.5-13.5FC[facility] HospitalPlatelets Auto (Bld) [#/Vol]Ordered By: Obaydah Daromar on 79-53-5762Ejyjgfmcu (Bld) [#/Vol]256 10 3/cZ689-975KsubewzucMary Rutan HospitalRBC Auto (Bld) [#/Vol]Ordered By: Obaydah Daromar on 08-14-1487XTH (Bld) [#/Vol]2.60 10 6/uLLow4.20-5.40[facility] Northerum or plasma anion gap determinationOrdered By: Oblubadah Daromar on 53-82-1797Exhuo gap [Moles/Vol]15.6 mmol/LFCleveland Clinic Akron General Lodi HospitalBasophils Auto (Bld) [#/Vol]Ordered By: Seth Dupree on 26-43-0101Fstsoemta (Bld) [#/Vol]0.0 10 3/uL 0.0-0.1FC[facility] HospitalBasophils/100 WBC Auto (Bld)Ordered By: Seth Dupree on 53-77-9531Hblfgrssg/100 WBC (Bld)0.4 %0.2-2.0[facility] HospitalEosinophils/100 WBC Auto (Bld)Ordered By: Seth Dupree on 01-75-2051Khgpbjryxte/100 WBC (Bld)2.5 %0.9-7.0[facility] Erythrocyte distribution width Auto (RBC) [Ratio]Ordered By: Seth Dupree on 77-00-0550Ohgjgywzxmd distribution width (RBC) [Ratio]13.5 %11.0-15.0[facility] HospitalGlomerular filtration rate (GFR) estimation in non- AmericanOrdered By: Seth Dupree on 55-32-3563JWT/1.73 sq M.predicted among non-blacks MDRD (S/P/Bld) [Vol rate/Area]33 mL/min/{1.73_m2}Low>=60 mL/min/1.73m 2[facility] HospitalHematocrit Auto (Bld) [Volume fraction]Ordered By: Seth Dupree on 54-15-2526Wnequgfqng (Bld) [Volume fraction]24.9 %Low36.0-48.0[facility] HospitalHemoglobin [Mass/volume] in BloodOrdered By: Seth Dupree on 91-22-0341Mbvlfjwksn (Bld) [Mass/Vol]8.2 g/dLLow12.0-16.0[facility] HospitalLaboratory - Chemistry and Chemistry - challengeOrdered By: Seth Dupree on 08-14-2025 Calcium [Mass/Vol]8.4 mg/dLLow8.5-10.1[facility] HospitalChloride [Moles/Vol]101 mmol/R38-722BbwhfoxucMary Rutan HospitalCO2 [Moles/Vol]23.9 mmol/L21.0-32.0[facility] HospitalCreatinine [Mass/Vol]1.51 mg/dL High0.55-1.02[facility] HospitalGFR/1.73 sq M.predicted MDRD (S/P/Bld) [Vol rate/Area]40 mL/min/{1.73_m2}Low>=60 mL/min/1.[address]m [address] [place], [place] [address]Glucose [Mass/Vol]108 mg/kLMkfy68-548BvypmrkasMary Rutan HospitalNatriuretic peptide B (Bld) [Mass/Vol]1330.0 pg/mL<=1800.0 [facility] HospitalPotassium [Moles/Vol]4.2 mmol/L3.5-5.1FWadsworth-Rittman Hospitalodium [Moles/Vol]134 mmol/EOmx235-559VgrntmdkwMary Rutan HospitalUrea nitrogen [Mass/Vol]32.0 mg/dLHigh7.0-18.0[facility] HospitalUrea nitrogen/Creatinine [Mass ratio]21.2 mg/mgMary Rutan HospitalLaboratory - Hematology and Cell countsOrdered By: Seth Dupree on 69-49-8860Tcdvkmlr granulocytes/100 WBC (Bld)0.4 %0.0-0.5FC[facility] HospitalLeukocytes [#/volume] corrected for nucleated erythrocytes in Blood by Automated counOrdered By: Seth Dupree on 03-44-5461XQQ corrected for nucl RBC Auto (Bld) [#/Vol]6.9 10 3/uL4.0-11.0[facility] Lymphocytes Auto (Bld) [#/Vol]Ordered By: Seth Dupree on 15-96-5815Lbyrjlmizvh (Bld) [#/Vol]0.7 10 3/uLLow1.2-3.8[facility] Lymphocytes/100 WBC Auto (Bld)Ordered By: Seth Dupree on 08-14-2025 Lymphocytes/100 WBC (Bld)9.4 %Low20.5-60.0[facility] HospitalH Auto (RBC) [Entitic mass]Ordered By: Seth Dupree on 00-81-4484JXH (RBC) [Entitic mass]28.3 pg26.7-34.0[facility] HospitalMCHC Auto (RBC) [Mass/Vol]Ordered By: Seth Dupree on 69-89-9220ULJU (RBC) [Mass/Vol]32.9 g/dL 29.9-35.2FC[facility] HospitalMCV Auto (RBC) [Entitic vol]Ordered By: Seth Dupree on 67-47-4698NPA (RBC) [Entitic vol]85.9 fL81.0-99.0[facility] HospitalMonocytes Auto (Bld) [#/Vol]Ordered By: Seth Dupree on 28-52-2028Ugxljczkz (Bld) [#/Vol]0.5 10 3/uL0.3-0.8[facility] HospitalMonocytes/100 WBC Auto (Bld)Ordered By: Seth Dupree on 08-14-2025 Monocytes/100 WBC (Bld)6.7 %1.7-12.0[facility] HospitalNeutrophils Auto (Bld) [#/Vol]Ordered By: Seth Dupree on 28-27-8462Yluxtehhxkw (Bld) [#/Vol]5.6 10 3/uL1.4-6.5FC[facility] HospitalNeutrophils/100 WBC Auto (Bld)Ordered By: Seth Dupree on 29-26-8623Glqcrtnrzzy/100 WBC (Bld)80.6 % High43.0-75.0[facility] HospitalNo Panel InformationOrdered By: Seth Dupree on 04-30-5701Mhjykteecvi # (Auto)0.2 10 3/uL0.0-0.7FC[facility] HospitalImmature Granulocyte # (Auto)0.03 10 3/uL0.00-0.03 [facility] HospitalTroponin I High Ekhuujgmuju79.5 pg/mL4.0-51.3 [facility] HospitalComment on above:CUT-OFF POINTS HAVE BEEN ESTABLISHED [...] (Bld) [Entitic vol]Ordered By: Seth Dupree on 20-26-0686Fmdjbvxq mean volume (Bld) [Entitic vol]10.0 fL9.5-13.5[facility] Platelets Auto (Bld) [#/Vol]Ordered By: Seth Dupree on 55-75-3512Tusktaysb (Bld) [#/Vol]276 10 3/rK826-529GwwiwbgrvMary Rutan HospitalRBC Auto (Bld) [#/Vol]Ordered By: Seth Dupree on 64-71-4951EPT (Bld) [#/Vol]2.90 10 6/uLLow 4.20-5.40[facility] Northerum or plasma anion gap determinationOrdered By: Seth Dupree on 86-37-2845Vqnny gap [Moles/Vol]13.3 mmol/LFCleveland Clinic Akron General Lodi HospitalBasophils Auto (Bld) [#/Vol]Ordered By: Agueda Robleroomar on 79-52-9121Ynmlwudic (Bld) [#/Vol]0.0 10 3/uL0.0-0.1FC[facility] HospitalBasophils/100 WBC Auto (Bld)Ordered By: Agueda Robleroomar on 38-51-7191Tsbulwomz/100 WBC (Bld)0.8 %0.2-2.0[facility] HospitalEosinophils/100 WBC Auto (Bld)Ordered By: Agueda Robleroomar on 08-11-2025 Eosinophils/100 WBC (Bld)4.4 %0.9-7.0[facility] Erythrocyte distribution width Auto (RBC) [Ratio]Ordered By: Agueda Azarr on 23-98-5071Ehhyamljhvx distribution width (RBC) [Ratio]13.4 %11.0-15.0[facility] HospitalGlomerular filtration rate (GFR) estimation in non- AmericanOrdered By: Agueda Fields on 09-91-3353HRU/1.73 sq M.predicted among non-blacks MDRD (S/P/Bld) [Vol rate/Area]37 mL/min/{1.73_m2}Low>=60 mL/min/1.73m 2[facility] HospitalHematocrit Auto (Bld) [Volume fraction]Ordered By: Agueda Fields on 46-40-3386Xnmyqlkarj (Bld) [Volume fraction]23.7 %Critically low36.0-48.0[facility] HospitalComment on above:RESULTS CALLED TO ETHAN ZULETA RNHemoglobin [Mass/volume] in BloodOrdered By: Agueda Fields on 91-70-5674Kopjxlwmqc (Bld) [Mass/Vol]8.0 g/dLLow 12.0-16.0[facility] HospitalLaboratory - Chemistry and Chemistry - challengeOrdered By: Agueda Fields on 33-94-2192Shhyniy [Mass/Vol]8.5 mg/dL 8.5-10.1[facility] HospitalChloride [Moles/Vol]107 mmol/L98-107 [facility] HospitalCO2 [Moles/Vol]26.9 mmol/L21.0-32.0[facility] HospitalCreatinine [Mass/Vol]1.36 mg/dLHigh0.55-1.02[facility] HospitalGFR/1.73 sq M.predicted MDRD (S/P/Bld) [Vol rate/Area]45 mL/min/{1.73_m2}Low>=60 mL/min/1.73m 2[facility] HospitalGlucose [Mass/Vol]91 mg/mP29-983XohgxsxsdMary Rutan HospitalPotassium [Moles/Vol] 3.9 mmol/L3.5-5.1FWadsworth-Rittman Hospitalodium [Moles/Vol]143 mmol/L 136-145[facility] HospitalUrea nitrogen [Mass/Vol]31.0 mg/dLHigh 7.0-18.0[facility] HospitalUrea nitrogen/Creatinine [Mass ratio] 22.8 mg/mgMary Rutan HospitalLaboratory - Hematology and Cell countsOrdered By: Agueda Fields on 54-34-3226Ojahumpx granulocytes/100 WBC (Bld)0.4 %0.0-0.5FC[facility] HospitalLeukocytes [#/volume] corrected for nucleated erythrocytes in Blood by Automated counOrdered By: Agueda Fields on 82-26-6770AEG corrected for nucl RBC Auto (Bld) [#/Vol]5.0 10 3/uL4.0-11.0[facility] HospitalLymphocytes Auto (Bld) [#/Vol] Ordered By: Agueda Fields on 07-82-9598Xbszsjfrtep (Bld) [#/Vol]0.8 10 3/uLLow 1.2-3.8[facility] HospitalLymphocytes/100 WBC Auto (Bld)Ordered By: Agueda Fields on 25-13-4950Kecdbrepqqi/100 WBC (Bld)15.6 %Low20.5-60.0 [facility] HospitalMCH Auto (RBC) [Entitic mass]Ordered By: Oblubadapito Daromar on 71-89-7146WAA (RBC) [Entitic mass]29.0 pg26.7-34.0[facility] HospitalMCHC Auto (RBC) [Mass/Vol]Ordered By: Oblubadapito Daromar on 77-01-0210HSUH (RBC) [Mass/Vol]33.8 g/dL29.9-35.2FC[facility] HospitalMCV Auto (RBC) [Entitic vol]Ordered By: Oblubadapito Daromar on 04-13-4032JTD (RBC) [Entitic vol]85.7 fL81.0-99.0[facility] HospitalMonocytes Auto (Bld) [#/Vol]Ordered By: Oblubadah Daromar on 90-03-7849Upnvnulhy (Bld) [#/Vol]0.6 10 3/uL0.3-0.8[facility] HospitalMonocytes/100 WBC Auto (Bld)Ordered By: Oblubadah Daromar on 12-73-1606Brvovbyfu/100 WBC (Bld)11.4 % 1.7-12.0[facility] HospitalNeutrophils Auto (Bld) [#/Vol]Ordered By: Obaydah Daromar on 76-27-1754Acdmxstxdav (Bld) [#/Vol]3.4 10 3/uL1.4-6.5 [facility] HospitalNeutrophils/100 WBC Auto (Bld)Ordered By: Oblubadah Daromar on 27-03-8473Svotodrtaax/100 WBC (Bld)67.4 %43.0-75.0[facility] HospitalNo Panel InformationOrdered By: Oblubadah Daromar on 79-58-3447Fmirwpvpxpn # (Auto)0.2 10 3/uL0.0-0.7FC[facility] HospitalImmature Granulocyte # (Auto)0.02 10 3/uL0.00-0.03[facility] HospitalPlatelet mean volume Auto (Bld) [Entitic vol]Ordered By: Obaydah Daromar on 78-08-0474Yqdrcbgy mean volume (Bld) [Entitic vol]9.8 fL9.5-13.5 [facility] HospitalPlatelets Auto (Bld) [#/Vol]Ordered By: Obaydah Daromar on 62-07-0367Ikckyusdt (Bld) [#/Vol]236 10 3/fN218-133YrupolimbMary Rutan HospitalRBC Auto (Bld) [#/Vol]Ordered By: Obaydah Daromar on 41-03-9526OSZ (Bld) [#/Vol]2.59 10 6/uLLow4.20-5.40[facility] Northerum or plasma anion gap determinationOrdered By: Obaydah Daromar on 51-37-1310Kffvt gap [Moles/Vol]13.0 mmol/LFCleveland Clinic Akron General [facility]odi Hospital Basophils Auto (Bld) [#/Vol]Ordered By: Cher Marker on 54-16-7465Hdmaeciow (Bld) [#/Vol]0.0 10 3/uL0.0-0.1FC[facility] HospitalBasophils/100 WBC Auto (Bld)Ordered By: Cher Marker on 60-58-4802Zqrkwesrg/100 WBC (Bld)0.5 %0.2-2.0[facility] HospitalEosinophils/100 WBC Auto (Bld)Ordered By: Cher Marker on 63-73-3746Bwspwlznmtb/100 WBC (Bld)2.1 %0.9-7.0[facility] HospitalErythrocyte distribution width Auto (RBC) [Ratio]Ordered By: Cher Marker on 86-99-6286Xhftdyyogaa distribution width (RBC) [Ratio]13.2 %11.0-15.0[facility] HospitalGlobulin Calc (S) [Mass/Vol]Ordered By: Cher Marker on 65-20-1647Bpuxdvry (S) [Mass/Vol]3.2 g/dLMary Rutan HospitalGlomerular filtration rate (GFR) estimation in non- AmericanOrdered By: Cher Marker on 37-33-9353EBX/1.73 sq M.predicted among non-blacks MDRD (S/P/Bld) [Vol rate/Area]37 mL/min/{1.73_m2}Low>=60 mL/min/1.73m 2FC[facility] HospitalHematocrit Auto (Bld) [Volume fraction]Ordered By: Cher Marker on 07-34-8831Pxfyjaviki (Bld) [Volume fraction]25.9 %Low36.0-48.0[facility] HospitalHemoglobin [Mass/volume] in BloodOrdered By: Cher Marker on 29-32-0658Bgpxdwqgzd (Bld) [Mass/Vol]8.7 g/dLLow12.0-16.0[facility] HospitalLaboratory - Chemistry and Chemistry - challengeOrdered By: Agueda Fields on 08-10-2025 Bilirubin Ql (U)NegativeNEGATIVEMary Rutan HospitalGlucose (U) [Mass/Vol]NegativeNEGATIVEMary Rutan HospitalKetones Ql (U) NegativeNEGATIVEMary Rutan HospitalpH (U)6.0 [pH]5.0-9.0[facility] Northpecific gravity (U) [Rel density]1.0101.005-1.025 [facility] HospitalUrobilinogen Qn (U)0.2 {Rossy'U}/dL0.2-1.0 [facility] HospitalLaboratory - Chemistry and Chemistry - challengeOrdered By: Cher Marker on [id number] [Mass/Vol]3.1 g/dLLow 3.4-5.0[facility] HospitalALP [Catalytic activity/Vol]46 U/L46-116 [facility] HospitalALT [Catalytic activity/Vol]19 U/L14-59 [facility] HospitalAST [Catalytic activity/Vol]20 U/L15-37 [facility] HospitalBilirubin [Mass/Vol]0.4 mg/dL0.2-1.0[facility] HospitalCalcium [Mass/Vol]8.6 mg/dL8.5-10.1FC[facility] Lodi HospitalChloride [Moles/Vol]102 mmol/Z49-790EvxhaapkuMary Rutan HospitalCO2 [Moles/Vol]26.6 mmol/L21.0-32.0[facility] Creatinine [Mass/Vol]1.36 mg/dLHigh0.55-1.02[facility] GFR/1.73 sq M.predicted MDRD (S/P/Bld) [Vol rate/Area]45 mL/min/{1.73_m2}Low>=60 mL/min/1.73m 2FC[facility] Clinic [facility] Lodi HospitalGlucose [Mass/Vol]116 mg/dLHigh 74-106Mary [facility] HospitalLactate [Moles/Vol]0.8 mmol/L0.4-2.0 [facility] HospitalNatriuretic peptide B (Bld) [Mass/Vol]1378.0 pg/mL<=1800.0[facility] HospitalPotassium [Moles/Vol]3.8 mmol/L 3.5-5.1FC[facility] HospitalProtein [Mass/Vol]6.3 g/dLLow6.4-8.2 [facility] Northodium [Moles/Vol]141 mmol/A289-857PpixfmpquMary Rutan HospitalUrea nitrogen [Mass/Vol]34.0 mg/dLHigh7.0-18.0[facility] HospitalUrea nitrogen/Creatinine [Mass ratio]25.0 mg/mgMary Rutan HospitalLaboratory - Hematology and Cell countsOrdered By: Cher Marker on [id number] granulocytes/100 WBC (Bld)0.5 %0.0-0.5 [facility] HospitalLaboratory - Specimen informationOrdered By: Agueda Fields on [id number] (U)CLEARCLEARFCleveland Clinic Akron General Lodi HospitalColor (U)LT. YELLOWYELLOWMary Rutan HospitalLaboratory - UrinalysisOrdered By: Agueda Fields on 63-14-2212Cnvkeqwvw esterase Test strip Ql (U)TRACEAbnormalNEGATIVEMary Rutan HospitalMucus Ql (Urine sed) NONE SEENNONE SEENMary Rutan HospitalNitrite Ql (U)Negative NEGATIVEMary Rutan HospitalProtein Ql (U)100 mg/dLAbnormal NEG/TRACEMary Rutan HospitalLeukocytes [#/volume] corrected for nucleated erythrocytes in Blood by Automated counOrdered By: Cher Marker on 57-87-5580CXY corrected for nucl RBC Auto (Bld) [#/Vol]6.2 10 3/uL4.0-11.0 [facility] HospitalLymphocytes Auto (Bld) [#/Vol]Ordered By: Cher Marker on 96-39-8346Kvyzkzyhcuc (Bld) [#/Vol]0.9 10 3/uLLow1.2-3.8 [facility] HospitalLymphocytes/100 WBC Auto (Bld)Ordered By: Cher Marker on 59-18-8792Ehmpqtdlwhn/100 WBC (Bld)14.4 %Low20.5-60.0[facility] Auto (RBC) [Entitic mass]Ordered By: Cher Marker on 21-22-9326BQT (RBC) [Entitic mass]29.0 pg26.7-34.0[facility] Rutan HospitalMCHC Auto (RBC) [Mass/Vol]Ordered By: Cher Marker on 85-29-0936ZDQM (RBC) [Mass/Vol]33.6 g/dL29.9-35.2FCleveland [facility] Lodi HospitalMCV Auto (RBC) [Entitic vol]Ordered By: Cher Marker on 25-97-5589ODP (RBC) [Entitic vol]86.3 fL81.0-99.0[facility] HospitalMonocytes Auto (Bld) [#/Vol]Ordered By: Cher Marker on 13-12-2547Nwnsplxxz (Bld) [#/Vol]0.5 10 3/uL0.3-0.8[facility] HospitalMonocytes/100 WBC Auto (Bld)Ordered By: Cher Marker on 66-36-4703Qpdzgjmbn/100 WBC (Bld)8.1 %1.7-12.0[facility] HospitalNeutrophils Auto (Bld) [#/Vol]Ordered By: Cher Marker on 24-19-4260Rgrsdmcfryj (Bld) [#/Vol]4.6 10 3/uL1.4-6.5FCleveland Clinic Ak[facility] Lodi HospitalNeutrophils/100 WBC Auto (Bld)Ordered By: Cher Marker on 94-97-4784Ijjzbafrpda/100 WBC (Bld)74.4 %43.0-75.0[facility] HospitalNo Panel InformationOrdered By: Agueda Fields on 59-04-6123Inwfa BacteriaTRACE #/HPFAbnormalNONE SEENMary Rutan HospitalUrine Culture ReflexedNOMary Rutan HospitalUrine Occult BloodLARGE AbnormalNEGATIVEMary Rutan HospitalUrine Other CastsNONE SEEN #/LPFNONE [facility] HospitalUrine Other CrystalsNone Seen #/HPFNone [facility] CenterUrine FJT65-41 #/HPFAbnormal0-2 [facility] HospitalUrine Squamous Epithelial CellsFEW #/LPF AbnormalNONE/RAREMary Rutan HospitalUrine WBC0-2 #/HPFAbnormalNONE [facility] HospitalNo Panel InformationOrdered By: Cher Marker on 23-68-2933Uiybljxrdjw # (Auto)0.1 10 3/uL0.0-0.7FC[facility] HospitalImmature Granulocyte # (Auto)0.03 10 3/uL0.00-0.03[facility] HospitalTroponin I High Hkbehamzrki25.5 pg/mL4.0-51.3FCleveland Clinic [facility] Lodi HospitalComment on above:CUT-OFF POINTS HAVE BEEN ESTABLISHED [...] (Bld) [Entitic vol]Ordered By: Cher Marker on 73-97-5311Ezziwgvm mean volume (Bld) [Entitic vol]9.9 fL9.5-13.5FC[facility] Platelets Auto (Bld) [#/Vol]Ordered By: Cher Marker on 02-02-8089Eptwkrkgo (Bld) [#/Vol]274 10 3/fM355-925MjyqwjvjqMary Rutan HospitalRBC Auto (Bld) [#/Vol]Ordered By: Cher Marker on 95-69-6483IWA (Bld) [#/Vol]3.00 10 6/uLLow 4.20-5.40[facility] Northerum or plasma albumin/globulin mass ratioOrdered By: Cher Marker on 02-54-3652Brgfkfz/Globulin [Mass ratio]1.0 {ratio}[facility] Northerum or plasma anion gap determination Ordered By: Cher Marker on 49-94-9781Efnyk gap [Moles/Vol]16.2 mmol/L [facility] HospitalBasophils Auto (Bld) [#/Vol]Ordered By: Valentin Leonard on 16-05-1604Gydfierfg (Bld) [#/Vol]0.05 10*3/uL<0.11[facility] HospitalBasophils/100 WBC Auto (Bld)Ordered By: Valentin Leonard on 15-86-3935Erahjkahf/100 WBC (Bld)0.8 %[facility] HospitalBlood manual differential comment interpretation narrativeOrdered By: Valentin Leonrad on 79-13-2231Fzjbbl differential comment Arturo (Bld) [Interp]AutoMary Rutan HospitalCB W Auto Differential panel (Bld)on 51-23-5999Ottnqczvd (Bld) [#/Vol]0.05 10*3/uLNormal<0.11CMercy Health [facility] on above: Order Comment: Specimen Type: BLOOD SPECIMEN Ordering Facility: [facility] Address: [address] [place], [place] [address]Performed By: #### 09505-1 #### [facility] CLIA [id number] [address] [place] [address] [place] [address] [place] AMERICABasophils/100 WBC (Bld)0.8 % NormalRegional Medical Center on above:Order Comment: Specimen Type: BLOOD SPECIMEN Ordering Facility: [facility] Address: [address] [place], [place] [address]Performed By: #### 87005-9 #### [facility] CLIA [id number] [address] [place] [address] [place] AMERICADifferential cell count method Nom (Bld)AutoNormalCMercy Health Clermont Hospital on above:Order Comment: Specimen Type: BLOOD SPECIMEN Ordering Facility: [facility] Address: [address] [place], [place] [address]Performed By: #### 99935-7 #### [facility] CLIA [id number] [address] [place] [address] [place] AMERICAEosinophils (Bld) [#/Vol] 0.16 10*3/uLNormal<0.46[facility] on above:Order Comment: Specimen Type: BLOOD SPECIMEN Ordering Facility: [facility] Address: [address] [place], [place] [address]Performed By: #### 83135-2 #### [facility] CLIA [id number] [address] [place] [address] [place] AMERICAEosinophils/100 WBC (Bld)2.5 %NormalRegional Medical Center on above:Order Comment: Specimen Type: BLOOD SPECIMEN Ordering Facility: [facility] Address: [address] [place], [place] [address]Performed By: #### 69399-3 #### [facility] CLIA [id number] [address] [place] [address] [place] AMERICAErythrocyte distribution width (RBC) [Ratio]13.5 %Bmcghz77.5-15.0[facility] on above:Order Comment: Specimen Type: BLOOD SPECIMEN Ordering Facility: [facility] Address: [address] [place], [place] [address]Performed By: #### 39836-5 #### [facility] CLIA [id number] [address] [place] [address] [place] AMERICAHematocrit (Bld) [Volume fraction]27.6 %Low36.0-46.0[facility] on above:Order Comment: Specimen Type: BLOOD SPECIMEN Ordering Facility: [facility] Address: [address] [place], [place] [address]Performed By: #### 20429-6 #### [facility] CLIA [id number] [address] [place] [address] [place] AMERICAHemoglobin (Bld) [Mass/Vol] 8.9 g/dLLow11.5-15.5CMercy Health Cl[facility] Hospital on above:Order Comment: Specimen Type: BLOOD SPECIMEN Ordering Facility: [facility] Address: [address] [place], [place] [address]Performed By: #### 94034-7 #### [facility] CLIA [id number] [address] [place] [address] [place] AMERICAImmature granulocytes (Bld) [#/Vol]0.03 10*3/uLNormal<0.10[facility] on above:Order Comment: Specimen Type: BLOOD SPECIMEN Ordering Facility: [facility] Address: [address] [place], [place] [address]Performed By: #### 03333-4 #### [facility] CLIA [id number] [address] [place] [address] [place] AMERICAImmature granulocytes/100 WBC (Bld)0.5 %NormalRegional Medical Center on above:Order Comment: Specimen Type: BLOOD SPECIMEN Ordering Facility: [facility] Address: [address] [place], [place] [address]Performed By: #### 76016-1 #### [facility] CLIA [id number] [address] [place] [address] [place] OF AMERICALymphocytes (Bld) [#/Vol] 0.77 10*3/uLLow1.00-4.00[facility] on above:Order Comment: Specimen Type: BLOOD SPECIMEN Ordering Facility: [facility] Address: [address] [place], [place] [address]Performed By: #### 98890-3 #### [facility] CLIA [id number] [address] [place], [place] [address] [place] [facility] HOSPITALLymphocytes/100 WBC (Bld) 12.3 %NormalRegional Medical Center on above:Order Comment: Specimen Type: BLOOD SPECIMEN Ordering Facility: [facility] Address: [address] [place], [place] [address]Performed By: #### 95079-6 #### [facility] CLIA [id number] [address] [place] [address] STATES [facility]H (RBC) [Entitic mass]28.8 iuEedoom24.0-34.0[facility] on above:Order Comment: Specimen Type: BLOOD SPECIMEN Ordering Facility: [facility] Address: [address] [place], [place] [address]Performed By: #### 17427-7 #### [facility] CLIA [id number] [address] [place] [address] [place] [facility] [facility] [address]NGST[facility] HOSPITALMCHC (RBC) [Mass/Vol]32.2 g/tYPfmtwp64.5-36.0[facility] on above:Order Comment: Specimen Type: BLOOD SPECIMEN Ordering Facility: [facility] Address: [address] [place], [place] [address]Performed By: #### 16376-8 #### [facility] CLIA [id number] [address] [place] [address] (RBC) [Entitic vol]89.3 iQNqqohb36.0-100.0[facility] on above:Order Comment: Specimen Type: BLOOD SPECIMEN Ordering Facility: [facility] Address: [address] [place], [place] [address]Performed By: #### 94357-6 #### [facility] CLIA [id number] [address] [place] [address] [place] OF AMERICAMonocytes (Bld) [#/Vol]0.65 10*3/uLNormal<0.87[facility] on above:Order Comment: Specimen Type: BLOOD SPECIMEN Ordering Facility: [facility] Address: [address] [place], [place] [address]Performed By: #### 38983-2 #### [facility] CLIA [id number] [address] [place] [address] [place] AMERICAMonocytes/100 WBC (Bld)10.4 %NormalRegional Medical Center on above:Order Comment: Specimen Type: BLOOD SPECIMEN Ordering Facility: [facility] Address: [address] [place], [place] [address]Performed By: #### 09130-4 #### [facility] CLIA [id number] [address] [place] [address] [place] AMERICANeutrophils (Bld) [#/Vol] 4.62 10*3/uLNormal1.45-7.50[facility] on above:Order Comment: Specimen Type: BLOOD SPECIMEN Ordering Facility: [facility] Address: [address] [place], [place] [address]Performed By: #### 98729-1 #### [facility] CLIA [id number] [address] [place] [address] [place] AMERICANeutrophils/100 WBC (Bld) 73.5 %NormalRegional Medical Center on above:Order Comment: Specimen Type: BLOOD SPECIMEN Ordering Facility: [facility] Address: [address] [place], [place] [address]Performed By: #### 85730-9 #### [facility] CLIA [id number] [address] [place] [address] [place] AMERICANucleated RBC (Bld) [#/Vol] 10*3/uLNormal<0.01[facility] on above:Order Comment: Specimen Type: BLOOD SPECIMEN Ordering Facility: [facility] Address: [address] [place], [place] [address]Performed By: #### 80867-8 #### [facility] CLIA [id number] [address] [place] [address] [place] AMERICANucleated RBC/100 WBC (Bld) [Ratio]0.0 /100 WBCNormalCMercy Health Clermont Hospital on above:Order Comment: Specimen Type: BLOOD SPECIMEN Ordering Facility: [facility] Address: [address] [place], [place] [address]Performed By: #### 24026-7 #### [facility] CLIA [id number] [address] [place] [address] [place] AMERICAPlatelet mean volume (Bld) [Entitic vol]9.9 fLNormal9.0-12.7CMercy Health [facility] Hospital on above: Order Comment: Specimen Type: BLOOD SPECIMEN Ordering Facility: [facility] Address: [address] [place], [place] [address]Performed By: #### 22659-7 #### [facility] CLIA [id number] [address] [place] [address] [place] AMERICAPlatelets (Bld) [#/Vol]295 10*3/aHEbboow686-069IsazbzervRegional Medical Center on above:Order Comment: Specimen Type: BLOOD SPECIMEN Ordering Facility: [facility] Address: [address] [place], [place] [address]Performed By: #### 25165-0 #### [facility] CLIA [id number] [address] [place] [address] [place] AMERICARBC (Bld) [#/Vol]3.09 10*6/uLLow3.90-5.20[facility] on above:Order Comment: Specimen Type: BLOOD SPECIMEN Ordering Facility: [facility] Address: [address] [place], [place] [address]Performed By: #### 62329-6 #### [facility] CLIA [id number] [address] [place] [address] [place] AMERICAWBC (Bld) [#/Vol]6.28 10*3/uLNormal3.70-11.00[facility] on above:Order Comment: Specimen Type: BLOOD SPECIMEN Ordering Facility: [facility] Address: [address] [place], [place] [address]Performed By: #### 28479-9 #### [facility] CLIA [id number] [address] [place] [address] OF AMERICAComprehensive metabolic 2000 panelon 75-90-9618Otkbrdo [Mass/Vol]3.7 g/dLLow3.9-4.9CMercy Health Clermont Hospital on above:Order Comment: Specimen Type: BLOOD SPECIMEN Ordering Facility: [facility] Address: [address] [place], [place] [address]Performed By: #### 32064-2 #### [facility] CLIA [id number] [address] [place] [address]JQG [Catalytic activity/Vol]45 U/UYkiiyj67-490JtgcdtgrwRegional Medical Center on above:Order Comment: Specimen Type: BLOOD SPECIMEN Ordering Facility: [facility] Address: [address] [place], [place] [address]Performed By: #### 53965-4 #### [facility] CLIA [id number] [address] [place], [place] [address]ATY [Catalytic activity/Vol]10 U/LNormal7-38[facility] on above:Order Comment: Specimen Type: BLOOD SPECIMEN Ordering Facility: [facility] Address: [address] [place], [place] [address]Performed By: #### 60295-7 #### [facility] CLIA [id number] [address] [place], [place] [address]Ghnid gap [Moles/Vol]10 mmol/LNormal8-15[facility] on above:Order Comment: Specimen Type: BLOOD SPECIMEN Ordering Facility: [facility] Address: [address] [place], [place] [address]Performed By: #### 61310-3 #### [facility] CLIA [id number] [address] [place], [place] [address]BLG [Catalytic activity/Vol]16 U/UUpxbrw46-00BhimttglrRegional Medical Center on above:Order Comment: Specimen Type: BLOOD SPECIMEN Ordering Facility: [facility] Address: [address] [place], [place] [address]Performed By: #### 83614-0 #### [facility] CLIA [id number] [address] [place], [place] [address]Sdkaflbko [Mass/Vol]0.3 mg/dLNormal0.2-1.3CMercy Health Clermont Hospital on above:Order Comment: Specimen Type: BLOOD SPECIMEN Ordering Facility: [facility] Address: [address] [place], [place] [address]Performed By: #### 07354-0 #### [facility] CLIA [id number] [address] [place], [place] [address]Eystegr [Mass/Vol]9.0 mg/dLNormal8.5-10.2CMercy Health Clermont Hospital on above:Order Comment: Specimen Type: BLOOD SPECIMEN Ordering Facility: [facility] Address: [address] [place], [place] [address]Performed By: #### 71600-8 #### [facility] CLIA [id number] [address] [place], [place] [address]Mqgkxhay [Moles/Vol]101 mmol/VJmucjj43-083DdtcnkugpRegional Medical Center on above:Order Comment: Specimen Type: BLOOD SPECIMEN Ordering Facility: [facility] Address: [address] [place], [place] [address]Performed By: #### 20215-2 #### [facility] CLIA [id number] [address] [place], [place] [address]BP6 [Moles/Vol]28 mmol/EHenqxf09-10FmqehvbubSt. Vincent Hospital Comment on above:Order Comment: Specimen Type: BLOOD SPECIMEN Ordering Facility: [facility] Address: [address] [place], [place] [address]Performed By: #### 35889-8 #### [facility] CLIA [id number] [address] [place] [address]Dpyufchjmr [Mass/Vol]1.64 mg/dLHigh0.58-0.96St. Vincent HospitalComment on above:Order Comment: Specimen Type: BLOOD SPECIMEN Ordering Facility: [facility] Address: [address] [place], [place] [address]Performed By: #### 40623-6 #### [facility] CLIA [id number] [address] [place] [address]3530pQHRpv SerPlBld CKD-EPI 538163 mL/min/1.73m???Low>=60St. Vincent HospitalComment on above:Order Comment: Specimen Type: BLOOD SPECIMEN Ordering Facility: [facility] Address: [address] [place], [place] [address]Result Comment: Estimated Glomerular Filtration Rate (eGFR) is [...] not accurately reflect actual GFR.Performed By: #### 69053-4 #### [facility] CLIA [id number] [address] [place] [address]Tnfbidg [Mass/Vol]103 mg/yYMmns39-35SmazqyoawSt. Vincent Hospital Comment on above:Order Comment: Specimen Type: BLOOD SPECIMEN Ordering Facility: [facility] Address: [address] [place], [place] [address]Result Comment: The [place] [employer] (ADA) provides guidance for cutoff [...] Standards of Medical Care in Diabetes 2016, [place] [employer]. Diabetes Care. 2016.39(Suppl 1).Performed By: #### 83658-6 #### [facility] CLIA [id number] [address] [place] [address]Bbzzkkkzn [Moles/Vol]4.7 mmol/LNormal3.7-5.1CMercy Health Clermont Hospital on above:Order Comment: Specimen Type: BLOOD SPECIMEN Ordering Facility: [facility] Address: [address] [place], [place] [address]Performed By: #### 41107-8 #### [facility] CLIA [id number] [address] [place] [address]Avtivij [Mass/Vol]5.9 g/dLLow6.3-8.0[facility] Comment on above:Order Comment: Specimen Type: BLOOD SPECIMEN Ordering Facility: [facility] Address: [address] [place], [place] [address]Performed By: #### 53803-6 #### [facility] CLIA [id number] [address] [place] [address]Uefpkm [Moles/Vol]139 mmol/JCakoqr362-869YajxlietpRegional Medical Center on above:Order Comment: Specimen Type: BLOOD SPECIMEN Ordering Facility: [facility] Address: [address] [place], [place] [address]Performed By: #### 74458-4 #### [facility] CLIA [id number] [address] [place] [address]Ilxe nitrogen [Mass/Vol]32 mg/dLHigh7-21[facility] on above:Order Comment: Specimen Type: BLOOD SPECIMEN Ordering Facility: [facility] Address: [address] [place], [place] [address]Performed By: #### 63364-0 #### [facility] CLIA [id number] [address] [place], [place] [address]YQM SerPl-aCncon 53-96-1241Ocwwpnoaoaxkra (EPO) Qn26.4 mIU/mL High2.6-18.5CMercy Health Clermont Hospital on above:Order Comment: Specimen Type: BLOOD SPECIMEN Ordering Facility: [facility] Address: [address] [place], [place] [address]Performed By: #### 05421-6 #### [facility] CLIA [id number] [address] [place] [address] [place] AMERICAEosinophils/100 WBC Auto (Bld)Ordered By: Valentin Leonard on 51-17-6629Hedpneixibq/100 WBC (Bld)2.5 % [facility] HospitalErythrocyte distribution width Auto (RBC) [Ratio]Ordered By: Valentin Leonard on 33-70-5117Eswsgvlkowi distribution width (RBC) [Ratio]13.5 %11.5-15.0[facility] HospitalFerritin SerPl-mCnc on 32-66-4231Gzklkvxa [Mass/Vol]174.0 ng/iJPwnzhv30.7-205.1CMercy Health Clermont Hospital on above:Order Comment: Specimen Type: BLOOD SPECIMEN Ordering Facility: [facility] Address: [address] [place], [place] [address]Performed By: #### 53677-1, 2284-8, 2132-9, 2276-4 #### [facility] CLIA [id number] [address] [place] [address] [place] AMERICAFolate SerPl-mCncon 43-63-9193Tiodrl [Mass/Vol]17.5 ng/mLNormal>4.7CMercy Health Clermont Hospital on above:Order Comment: Specimen Type: BLOOD SPECIMEN Ordering Facility: [facility] Address: [address] [place], [place] [address]Performed By: #### 15525-8, 2283-8, 2132-06, 2276-01 #### [facility] CLIA [id number] [address] [place], [place] [address]K [id number] [place] [address] [place] AMERICAGlomerular filtration rate [Volume Rate/Area] in Serum, Plasma or Blood by CreatinineOrdered By: Valentin Leonard on 67-04-7979Feimhxwqip filtration rate [Volume Rate/Area] in Serum, Plasma or Blood by Suiccvrquh76 mL/min/1.73m???Low>=60[facility] HospitalComment on above:Estimated Glomerular Filtration Rate (eGFR) [...] Leonard on 07-15-2025 Hematocrit (Bld) [Volume fraction]27.6 %Low36.0-46.0[facility] HospitalHemoglobin [Mass/volume] in BloodOrdered By: Valentin Leonard on 07-15-2025 Hemoglobin (Bld) [Mass/Vol]8.9 g/dLLow11.5-15.5FCleveland Clinic [facility] Iron and Iron binding capacity panelon 19-93-0378Hjin [Mass/Vol]45 ug/dLNormal 41-186[facility] on above:Order Comment: Specimen Type: BLOOD SPECIMEN Ordering Facility: [facility] Address: [address] [place], [place] [address]Performed By: #### 57856-4, 2283-8, 2132-06, 2276-01 #### [facility] CLIA [id number] [address] [place] [address] [place] AMERICAIron binding capacity [Mass/Vol]255 ug/mLBnxorg841-458JcgzlgjjeRegional Medical Center on above:Order Comment: Specimen Type: BLOOD SPECIMEN Ordering Facility: [facility] Address: [address] [place], [place] [address]Performed By: #### 57213-3, 2284-8, 2131-9, 6-4 #### [facility] CLIA [id number] [address] [place] [address] [place] AMERICAIron/TIBC [Molar ratio]17.6 %Hvzoht57.0-57.0[facility] on above:Order Comment: Specimen Type: BLOOD SPECIMEN Ordering Facility: [facility] Address: [address] [place], [place] [address]Performed By: #### 27977-2, 2284-8, 2131-9, 6-4 #### [facility] CLIA [id number] [address] [place] [address] [place] AMERICAIron binding capacity [Mass/volume] in Serum or PlasmaOrdered By: Valentin Leonard on 80-93-3123Pajq binding capacity [Mass/Vol]255 ug/mY195-867NtrbxilfeMary Rutan HospitalIron saturation [Mass Fraction] in Serum or PlasmaOrdered By: Valentin Leonard on 45-22-4370Zfhf saturation [Mass fraction]17.6 %15.0-57.0[facility] HospitalLaboratory - Chemistry and Chemistry - challengeOrdered By: Valentin Abrebecca on 70-96-0063Kxvdmgw [Mass/Vol]3.7 g/dLLow3.9-4.9[facility] HospitalALP [Catalytic activity/Vol]45 U/W46-541CwbnbkfmqMary Rutan HospitalALT [Catalytic activity/Vol]10 U/L7-38[facility] HospitalAST [Catalytic activity/Vol]16 U/I84-68QxzpjwlceMary Rutan HospitalBilirubin [Mass/Vol]0.3 mg/dL0.2-1.3[facility] HospitalCalcium [Mass/Vol]9.0 mg/dL8.5-10.2[facility] HospitalChloride [Moles/Vol]101 mmol/L 98-107[facility] HospitalCO2 [Moles/Vol]28 mmol/J72-66SlmvpsapxMary Rutan HospitalCreatinine [Mass/Vol]1.64 mg/dLHigh0.58-0.96[facility] HospitalFerritin [Mass/Vol]174.0 ng/mL14.7-205.1[facility] HospitalGlucose [Mass/Vol]103 mg/rOMgmi31-67BdrsyzkddMary Rutan HospitalComment on above:The [place] [employer] (ADA) provides guidance for cutoff [...] diabetes.Reference: [employer] in Diabetes 2016, [place] [employer]. Diabetes Care. 2016.39(Suppl 1).Iron [Mass/Vol]45 ug/yO17-460 [facility] HospitalPotassium [Moles/Vol]4.7 mmol/L3.7-5.1FWadsworth-Rittman Hospitalodium [Moles/Vol]139 mmol/X993-041MmrbtwbvtMary Rutan HospitalUrea nitrogen [Mass/Vol]32 mg/dLHigh7-21[facility] HospitalLaboratory - Chemistry and Chemistry - challengeOrdered By: Nathan Hathaway on 63-12-1633Iwwasjupu (Vitamin B12) [Mass/Vol]1457 pg/dUErbb937-8235EzggikqrpMary Rutan HospitalLaboratory - Hematology and Cell countsOrdered By: Valentin Leonard on 71-87-8614Jcguyvrdbnj (Bld) [#/Vol]0.16 10*3/uL<0.46Mary Rutan HospitalImmature granulocytes (Bld) [#/Vol]0.03 10*3/uL<0.10 [facility] HospitalImmature granulocytes/100 WBC (Bld)0.5 % [facility] HospitalLeukocytes [#/volume] corrected for nucleated erythrocytes in Blood by Automated counOrdered By: Valentin Leonard on 07-15-2025 WBC corrected for nucl RBC Auto (Bld) [#/Vol]6.28 k/uL3.70-11.00Mary Rutan HospitalLymphocytes Auto (Bld) [#/Vol]Ordered By: Valentin Erickankar on 86-72-5647Zdtpkzaugud (Bld) [#/Vol]0.77 10*3/uLLow1.00-4.00[facility] HospitalLymphocytes/100 WBC Auto (Bld)Ordered By: Valentin Erickankar on 64-34-9467Piwdjcjdahs/100 WBC (Bld)12.3 %[facility] MCH Auto (RBC) [Entitic mass]Ordered By: Valentin Faithhyankar on 59-94-3546UAD (RBC) [Entitic mass]28.8 pg26.0-34.0[facility] Rutan HospitalMCHC Auto (RBC) [Mass/Vol]Ordered By: Valentin Faithhyankar on 97-85-3959RXAV (RBC) [Mass/Vol]32.2 g/dL30.5-36.0[facility] Rut[facility] HospitalMCV Auto (RBC) [Entitic vol] Ordered By: Valentin Faithhyankar on 64-24-1856IWP (RBC) [Entitic vol]89.3 fL 80.0-100.0[facility] Rutan Hospital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 ANALYSISon 92-71-1245TQR32 L265P MUTATION RESULTNormalCMartins Ferry HospitalComeaton rapids medical center on above:Order Comment: Specimen Type: BLOOD SPECIMEN Ordering Facility: [facility] Address: [address] [place], [place] [address]Result Comment: 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 ANALYSIS Laboratory Accession Number: [id number] Sample Type: Peripheral Blood Result: 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 L265P is highly characteristic of [...] presence or absence of the L265P (c.794T>C, p.Sbp385Hxl; g.36720761; [id number]) variant (mutation) in MYD88 gene (NM_002468.4) using [...] MYD88 mutations in human lymphoma. Nature 2011. 470(4517):115-9. 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 Am J Clin Pathol. 2013. 140(3):387-94. 3) Obi SP, Spencer L, Todd G, et al. MYD88 L265P somatic mutation in Waldenstrom's macroglobulinemia. N Engl J Med. 2012. 367(9)066-33. 4) Almonte JQ, Juan J YS, Ariel LL, Tanya K. Toll-like receptors and cancer: MYD88 mutation and inflammation. Front Immunol. 2014 May 28;367(5):1-10. 5) Gabriel X, Li W, Maykel Q, et al. MYD88 L265P Mutation in Lymphoid Malignancies. Cancer Res. 2018. 78(10):7529-33. Disclaimer: This test was developed and its performance characteristics determined by [facility]'s Pathology and Laboratory Medicine Department. It has not been cleared or approved by the FDA. [facility]'s Pathology and Laboratory Medicine Department is regulated under CLIA as certified to perform high-complexity testing. This test is used for clinical purposes. It should not be regarded as investigational or for research. Test performed at [facility], [address] [place] [address]. CLIA Number: [id number] Interpretation performed by Natalee Bolanos, PhD, [facility] LORISDPerformed By: #### 97480- 5 #### [facility] CLIA [id number] [address] [place] [address] [place] AMERICAMonocytes Auto (Bld) [#/Vol] Ordered By: Valentin Leonard on 30-87-5589Bcvzlttlg (Bld) [#/Vol]0.65 10*3/uL <0.87FirGreen Cross HospitalMonocytes/100 WBC Auto (Bld)Ordered By: Valentin Abkatrinaankar on 45-54-9344Iyhmxwbja/100 WBC (Bld)10.4 %[facility] Rutan HospitalNeutrophils Auto (Bld) [#/Vol]Ordered By: Valentin Abhyankar on 09-10-0675Puicperevgi (Bld) [#/Vol]4.62 10*3/uL1.45-7.50Mary Rutan HospitalNeutrophils/100 WBC Auto (Bld)Ordered By: Valentin Leonard on 22-42-4880Lkrhysalmjf/100 WBC (Bld)73.5 %[facility] HospitalNo Panel InformationOrdered By: Valentin Leonard on 73-70-3281Eacdbc86.5 ng/mL>4.7 [facility] HospitalMYD88 L265P MutationSee commentMary Rutan HospitalComment on above: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 ANALYSISLaboratory Accession Number: [id number] Type: Peripheral BloodResult:MYD88 L265P (c.794T>C, p.Eyb782Afn) detected with variant allelefraction (vaf) 0.98%.Interpr etation:The 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 This abnormality may also be found in diffuse large B- celllymphomas and in a small percentage of other small B-cell neoplasmsincluding chronic lymphocytic leukemia and marginal zone lymphomas.Clinical and pathologic correlation is suggested.Methodology:DNA extracted from the specimen is interrogated for the presence orabsence of the L265P (c.794T>C, p.Xif623Kgt; g.73541401; [id number])variant (mutation) in MYD88 gene (NM_002468.4) using droplet digitalpolymerase chain reaction (PCR). Droplet digital PCR includespartitioning of DNA into droplets, droplet independent PCR,interrogation using allele specific hydrolysis probes, and analysis ofdroplets using Poisson distribution to calculate the copy number ofMYD88 L265P and wild-type MYD88. The reference genome used zjFOKg55/hg38.Limitations:This test is designed to detect the L265P variant in the MYD88 gene.Uncommon variants or single nucleotide polymorphisms may affectbinding of probes or primers and may rarely result in false negative,false positive, or indeterminate results. Other variants in MYD88 willnot be identifiedby this test. The lower limit of detection of thisassay is approximately 0.5% variant allele fraction (vaf) for jreCDD70 L265P variant. Although vaf is provided for reference, thisvalue should be interpreted with caution as this test is intended forqualitative purposes and is not validated as a quantitative test. DczLRT96 L265P result cannot be used on a standalone basis for diagnosisof lymphoplasmacytic lymphoma and needs to be considered in thecontext of clinical and morphologic presentation.References:1) Nikkie VN, Cristhian RM, Hannah R, et al. Oncogenically active FBB66sfwjiunqk in human lymphoma. Nature 2011. 470(9288):115-9.2) Joya SL, Anai WagonerJ, DW, James L, Mikey JR, Nash ED: CFQ67H170P somatic mutation: its usefulness in the differential diagnosisof bone marrow involvement by B-cell lymphoproliferative disorders. AmJ Clin Pathol. 2013. 140(3):387-94.3) Obi SP, Spencer L, Brooks G,et al. 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 N Engl J Med. 2012. 367(4)172-33.4) Almonte JQ, Juan J YS, Ariel LL, Horikawa K. Toll-like receptorsand cancer: MYD88 mutation and inflammation. Front Immunol. 2014 ;367(5):1-10.5) Nery X, Francy W, Maykel Q, et al. 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 Cancer Res. 2018. 78(10):0070-04.Disclaimer:This test was developed and its performance characteristics determinedby [facility]'s Pathology and [facility] Medicine Department. Ithas not been cleared or approved by the FDA. [facility]'s[facility] is regulated under CLIAas certified to perform high-complexity testing. Thistest is used forclinical purposes. It should not be regarded as investigational or forresearch.Testperformed at [facility] Main Lab, [facility],[place] [address]. CLIA Number: [id number] performed by Natalee Bolanos, PhD, HCLDNucleated RBC Auto (Bld) [#/Vol]Ordered By: Valentin Leonard on 95-50-9109Srnpzwcia RBC (Bld) [#/Vol]10*3/uL<0.01Mary Rutan HospitalNucleated erythrocytes [Presence] in Blood by Automated count Ordered By: Valentin Leonard on 72-84-6977Fxsfzrgbp RBC Auto Ql (Bld)0.0 /100{WBC}[facility] Rutan HospitalPlatelet mean volume Auto (Bld) [Entitic vol]Ordered By: Valentin Leonard on 42-09-4265Ctyxxzvy mean volume (Bld) [Entitic vol]9.9 fL9.0-12.7FCleveland Clinic Akron General Lodi HospitalPlatelets Auto (Bld) [#/Vol]Ordered By: Valentin Leonard on 08-75-2500Oqzxiixaf (Bld) [#/Vol]295 10*3/oZ419-519XrmgbytnjMary Rutan HospitalProtein [Mass/volume] in Serum or PlasmaOrdered By: Valentin Leonard on 71-36-4483Vjruwlz [Mass/Vol]5.9 g/dLLow 6.3-8.0[facility] HospitalRBC Auto (Bld) [#/Vol]Ordered By: Valentin Leonard on 87-79-3876XOA (Bld) [#/Vol]3.09 10*6/uLLow3.90-5.20[facility] Northerum or plasma anion gap determinationOrdered By: Valentin Leonard on 36-55-3401Awxeg gap [Moles/Vol]10 mmol/L8-15[facility] Northerum or plasma erythropoietin (EPO) measurement (units/volume) Ordered By: Valentin Leonard on 18-72-3946Dreylejcvgfpce (EPO) Qn26.4 mIU/mLHigh 2.6-18.5FCleveland Clinic Akron General Lodi HospitalVit B12 SerPl-mCncon 07-15-2025 Cobalamin (Vitamin B12) [Mass/Vol]1457 pg/uTBnao921-9037RvvmsgmheMercy Health Clermont Hospital on above:Order Comment: Specimen Type: BLOOD SPECIMEN Ordering Facility: [facility] Address: [address] [place], [place] [address]Performed By: #### 90157-1, 2284-8, 2132-9, 2276-4 #### [facility] CLIA [id number] [address] [place] [address] [place] [address] [place] AMERICACNPNon [id number] Telephone (NCCAP) LASHAUN JOAQUIN ([id number]) 1940 F Date Time Provider Department 07/10/25 [...] Hathaway's office Please return the call at [phone] KERRY Menendez Felicia, RN 07/10/2025 12:07 PM [...] (None) Encounter Status:Closed by YOLANDA COBIAN on 07/10/25NoalCMartins Ferry HospitalAlbumin [Mass/volume] in Serum or PlasmaOrdered By: Nathan Hathaway on 24-22-8136Wwlxumx [Mass/Vol]3.33 g/dLLow3.43-5.41[facility] W Auto Differential panel (Bld)on 84-17-1069Oqxuqvkrf (Bld) [#/Vol] 0.05 10*3/uLNormal<0.11CMercy Health Clermont Hospital on above:Order Comment: Specimen Type: BLOOD SPECIMEN Ordering Facility: [facility] Address: [address] [place], [place] [address]Performed By: #### 21471-9 #### [facility] CLIA [id number] [address] [place], [place] [address] [place] AMERICABasophils/100 WBC (Bld)0.9 % [facility] on above:Order Comment: Specimen Type: BLOOD SPECIMEN Ordering Facility: [facility] Address: [address] [place], [place] [address]Performed By: #### 86578-0 #### [facility] CLIA [id number] [address] [place] [address] [place] AMERICADifferential cell count method Nom (Bld)AutoNormalCMercy Health Clermont Hospital on above:Order Comment: Specimen Type: BLOOD SPECIMEN Ordering Facility: [facility] Address: [address] [place], [place] [address]Performed By: #### 73880-2 #### [facility] CLIA [id number] [address] [place] [address] [place] AMERICAEosinophils (Bld) [#/Vol] 0.18 10*3/uLNormal<0.46[facility] on above:Order Comment: Specimen Type: BLOOD SPECIMEN Ordering Facility: [facility] Address: [address] [place], [place] [address]Performed By: #### 90428-6 #### [facility] CLIA [id number] [address] [place] [address] [place] AMERICAEosinophils/100 WBC (Bld)3.3 %[facility] on above:Order Comment: Specimen Type: BLOOD SPECIMEN Ordering Facility: [facility] Address: [address] [place], [place] [address]Performed By: #### 21679-2 #### [facility] IA [id number] [address] [place] [address] [place] AMERICAErythrocyte distribution width (RBC) [Ratio]13.5 %Weqdju57.5-15.0[facility] on above:Order Comment: Specimen Type: BLOOD SPECIMEN Ordering Facility: [facility] Address: [address] [place], [place] [address]Performed By: #### 93794-6 #### [facility] IA [id number] [address] [place] [address] [place] AMERICAHematocrit (Bld) [Volume fraction]27.8 %Low36.0-46.0[facility] on above:Order Comment: Specimen Type: BLOOD SPECIMEN Ordering Facility: [facility] Address: [address] [place], [place] [address]Performed By: #### 24743-1 #### [facility] [place] [id number] [address] [place] [address] [place] AMERICAHemoglobin (Bld) [Mass/Vol] 9.0 g/dLLow11.5-15.5CMercy Health Clermont Hospital on above:Order Comment: Specimen Type: BLOOD SPECIMEN Ordering Facility: [facility] Address: [address] [place], [place] [address]Performed By: #### 80756-6 #### [facility] IA [id number] [address] [place] [address] [place] AMERICAImmature granulocytes (Bld) [#/Vol]0.03 10*3/uLNormal<0.10[facility] on above:Order Comment: Specimen Type: BLOOD SPECIMEN Ordering Facility: [facility] Address: [address] [place], [place] [address]Performed By: #### 88387-4 #### [facility] IA [id number] [address] [place], [place] [address] [place] AMERICAImmature granulocytes/100 WBC (Bld)0.5 %NormalRegional Medical Center on above:Order Comment: Specimen Type: BLOOD SPECIMEN Ordering Facility: [facility] Address: [address] [place], [place] [address]Performed By: #### 53677-8 #### [facility] CLIA [id number] [address] [place] [address] [place] AMERICALymphocytes (Bld) [#/Vol] 0.87 10*3/uLLow1.00-4.00[facility] on above:Order Comment: Specimen Type: BLOOD SPECIMEN Ordering Facility: [facility] Address: [address] [place], [place] [address]Performed By: #### 86177-9 #### [facility] CLIA [id number] [address] [place] [address] [place] AMERICALymphocytes/100 WBC (Bld) 15.9 %NormalRegional Medical Center on above:Order Comment: Specimen Type: BLOOD SPECIMEN Ordering Facility: [facility] Address: [address] [place], [place] [address]Performed By: #### 52242-6 #### [facility] CLIA [id number] [address] [place] [address] (RBC) [Entitic mass]28.8 jmLvflqm40.0-34.0[facility] on above:Order Comment: Specimen Type: BLOOD SPECIMEN Ordering Facility: [facility] Address: [address] [place], [place] [address]Performed By: #### 20137-7 #### [facility] CLIA [id number] [address] [place], [place] [address] [place] (RBC) [Mass/Vol]32.4 g/qCYrtugz16.5-36.0[facility] on above:Order Comment: Specimen Type: BLOOD SPECIMEN Ordering Facility: [facility] Address: [address] [place], [place] [address]Performed By: #### 90042-7 #### [facility] CLIA [id number] [address] [place] [address] [place] AMERICAMCV (RBC) [Entitic vol]89.1 cCFigkqv41.0-100.0[facility] on above:Order Comment: Specimen Type: BLOOD SPECIMEN Ordering Facility: [facility] Address: [address] [place], [place] [address]Performed By: #### 15293-8 #### [facility] CLIA [id number] [address] [place] [address] [place] AMERICAMonocytes (Bld) [#/Vol]0.61 10*3/uLNormal<0.87[facility] on above:Order Comment: Specimen Type: BLOOD SPECIMEN Ordering Facility: [facility] Address: [address] [place], [place] [address]Performed By: #### 28492-3 #### [facility] CLIA [id number] [address] [place] [address] [place] AMERICAMonocytes/100 WBC (Bld)11.2 %NormalRegional Medical Center on above:Order Comment: Specimen Type: BLOOD SPECIMEN Ordering Facility: [facility] Address: [address] [place], [place] [address]Performed By: #### 73904-0 #### [facility] CLIA [id number] [address] [place] [address] [place] AMERICANeutrophils (Bld) [#/Vol] 3.72 10*3/uLNormal1.45-7.50[facility] on above:Order Comment: Specimen Type: BLOOD SPECIMEN Ordering Facility: [facility] Address: [address] [place], [place] [address]Performed By: #### 01733-3 #### [facility] CLIA [id number] [address] [place], [place] [address] [place] AMERICANeutrophils/100 WBC (Bld) 68.2 %NormalRegional Medical Center on above:Order Comment: Specimen Type: BLOOD SPECIMEN Ordering Facility: [facility] Address: [address] [place], [place] [address]Performed By: #### 90812-9 #### [facility] CLIA [id number] [address] [place] [address] [place] AMERICANucleated RBC (Bld) [#/Vol] 10*3/uLNormal<0.01[facility] on above:Order Comment: Specimen Type: BLOOD SPECIMEN Ordering Facility: [facility] Address: [address] [place], [place] [address]Performed By: #### 40835-5 #### [facility] IA [id number] [address] [place] [address] [place] AMERICANucleated RBC/100 WBC (Bld) [Ratio]0.0 /100 WBCNormalCMercy Health Clermont Hospital on above:Order Comment: Specimen Type: BLOOD SPECIMEN Ordering Facility: [facility] Address: [address] [place], [place] [address]Performed By: #### 04708-9 #### [facility] IA [id number] [address] [place] [address] [place] AMERICAPlatelet mean volume (Bld) [Entitic vol]9.5 fLNormal9.0-12.7CMercy Health Clermont Hospital on above: Order Comment: Specimen Type: BLOOD SPECIMEN Ordering Facility: [facility] Address: [address] [place], [place] [address]Performed By: #### 25013-0 #### [facility] CLIA [id number] [address] [place] [address] [place] AMERICAPlatelets (Bld) [#/Vol]275 10*3/oZKwjvju990-085EvzncsfgtRegional Medical Center on above:Order Comment: Specimen Type: BLOOD SPECIMEN Ordering Facility: [facility] Address: [address] [place], [place] [address]Performed By: #### 05213-5 #### [facility] CLIA [id number] [address] [place], [place] [address] (Bld) [#/Vol]3.12 10*6/uLLow3.90-5.20[facility] on above:Order Comment: Specimen Type: BLOOD SPECIMEN Ordering Facility: [facility] Address: [address] [place], [place] [address]Performed By: #### 22889-4 #### [facility] CLIA [id number] [address] [place], [place] [address]W (Bld) [#/Vol]5.46 10*3/uLNormal3.70-11.00[facility] on above:Order Comment: Specimen Type: BLOOD SPECIMEN Ordering Facility: [facility] Address: [address] [place], [place] [address]Performed By: #### 21605-1 #### [facility] CLIA [id number] [address] [place], [place] [address]CNOVSPon 37-34-5757XUUMQG Visit (SP) Office ([place]) LASHAUN JOAQUIN ([id number]) 1940 F Date Time Provider Department 07/08/25 10:00 AM PAOLO CASILLAS During your visit today, we recorded the following information about you: Temperature Pulse Respiration Blood pressure 96.8 degrees 66/minute 18/minute 178/68 Weight Height 91.8 kg 1.664 m Paolo Casillas APRN.[employer]ED INSPECTION SUPERVISOR 07/10/2025 6:42 PM Signed PATIENT NAME: [...] HISTORY: FAMILY HISTORY Proble (more content not included)...NormalChillicothe VA Medical CenterPNon [id number] ([facility]) LASHAUN JOAQUIN ([id number]) 1940 F Date Time Provider Department 07/08/25 PAOLO CASILLAS During your visit today, we recorded the following information about you: Kayla Arriaga 07/08/2025 11:24 AM Signed Please call Her daughter Marianna with today's lab results. [phone] Yolanda Cobian RN 07/10/2025 9:17 AM Signed [...] (None) Encounter Status:Closed by YOLANDA COBIAN on 07/10/25NormalCMartins Ferry HospitalComprehensive metabolic 2000 panelon 56-10-3799Ncraaea [Mass/Vol]3.6 g/dLLow3.9-4.9CMercy Health Clermont Hospital on above:Order Comment: Specimen Type: BLOOD SPECIMEN Ordering Facility: [facility] Address: [address] [place], [place] [address]Performed By: #### 84976-3 #### [facility] CLIA [id number] [address] [place] [address] [place] AMERICAALP [Catalytic activity/Vol] 48 U/SNofxaq06-359VkfgrydceRegional Medical Center on above:Order Comment: Specimen Type: BLOOD SPECIMEN Ordering Facility: [facility] Address: [address] [place], [place] [address]Performed By: #### 35574-8 #### [facility] CLIA [id number] [address] [place] [address] [place] AMERICAALT [Catalytic activity/Vol] 13 U/LNormal7-38[facility] on above:Order Comment: Specimen Type: BLOOD SPECIMEN Ordering Facility: [facility] Address: [address] [place], [place] [address]Performed By: #### 55768-3 #### [facility] CLIA [id number] [address] [place], [place] [address] [place] AMERICAAnion gap [Moles/Vol]11 mmol/LNormal8-15[facility] on above:Order Comment: Specimen Type: BLOOD SPECIMEN Ordering Facility: [facility] Address: [address] [place], [place] [address]Performed By: #### 10578-4 #### [facility] CLIA [id number] [address] [place] [address] [place] AMERICAAST [Catalytic activity/Vol] 22 U/SDrebwc26-22IqahphosjRegional Medical Center on above:Order Comment: Specimen Type: BLOOD SPECIMEN Ordering Facility: [facility] Address: [address] [place], [place] [address]Performed By: #### 66667-4 #### [facility] CLIA [id number] [address] [place], [place] [address] [place] AMERICABilirubin [Mass/Vol]0.3 mg/dLNormal0.2-1.3CMercy Health Clerm[facility] Hospital on above:Order Comment: Specimen Type: BLOOD SPECIMEN Ordering Facility: [facility] Address: [address] [place], [place] [address]Performed By: #### 51687-9 #### [facility] CLIA [id number] [address] [place], [place] [address] [place] AMERICACalcium [Mass/Vol]8.9 mg/dL Normal8.5-10.2CMercy Health Clermont Hospital on above:Order Comment: Specimen Type: BLOOD SPECIMEN Ordering Facility: [facility] Address: [address] [place], [place] [address]Performed By: #### 89492-6 #### [facility] CLIA [id number] [address] [place] [address] [place] AMERICAChloride [Moles/Vol]106 mmol/IVkktjf13-258UvvqkdixlRegional Medical Center on above:Order Comment: Specimen Type: BLOOD SPECIMEN Ordering Facility: [facility] Address: [address] [place], [place] [address]Performed By: #### 78693-9 #### [facility] CLIA [id number] [address] [place] [address] [place] AMERICACO2 [Moles/Vol]24 mmol/L Dikjst82-50FbcqugtewRegional Medical Center on above:Order Comment: Specimen Type: BLOOD SPECIMEN Ordering Facility: [facility] Address: [address] [place], [place] [address]Performed By: #### 23448-5 #### [facility] CLIA [id number] [address] [place] [address] [place] AMERICACreatinine [Mass/Vol]1.65 mg/dLHigh0.58-0.96[facility] on above:Order Comment: Specimen Type: BLOOD SPECIMEN Ordering Facility: [facility] Address: [address] [place], [place] [address]Performed By: #### 03477-5 #### [facility] CLIA [id number] [address] [place] [address] [place] AMERICAeGFRcr SerPlBld CKD-EPI 202 31 mL/min/1.73m???Low>=60[facility] on above:Order Comment: Specimen Type: BLOOD SPECIMEN Ordering Facility: [facility] Address: [address] [place], [place] [address]Result Comment: Estimated Glomerular Filtration Rate (eGFR) is [...] not accurately reflect actual GFR.Performed By: #### 09776-6 #### [facility] [place] [id number] [address] [place] [address] [place] AMERICAGlucose [Mass/Vol]100 mg/dL Xyfn12-06UtqqqosorRegional Medical Center on above:Order Comment: Specimen Type: BLOOD SPECIMEN Ordering Facility: [facility] Address: [address] [place], [place] [address]Result Comment: The [place] Diabetes Association (ADA) provides guidance for cutoff [...] Standards of Medical Care in Diabetes 2016, [place] [employer]. Diabetes Care. 2016.39(Suppl 1).Performed By: #### 33130-0 #### [facility] [place] [id number] [address] [place] [address] [place] AMERICAPotassium [Moles/Vol]5.3 mmol/LHigh3.7-5.1CMercy Health [facility] on above:Order Comment: Specimen Type: BLOOD SPECIMEN Ordering Facility: [facility] Address: [address] [place], [place] [id number] By: #### 35327-9 #### [facility] [place] [id number] [address] [place] [address] [place] AMERICAProtein [Mass/Vol]5.8 g/dL Low6.3-8.0[facility] on above:Order Comment: Specimen Type: BLOOD SPECIMEN Ordering Facility: [facility] Address: [address] [place], [place] [address]Performed By: #### 86543-2 #### [facility] CLIA [id number] [address] [place] [address] [place] AMERICASodium [Moles/Vol]141 mmol/L Xkfkjv630-868VuwiuamipRegional Medical Center on above:Order Comment: Specimen Type: BLOOD SPECIMEN Ordering Facility: [facility] Address: [address] [place], [place] [address]Performed By: #### 89699-9 #### [facility] CLIA [id number] [address] [place] [address] [place] AMERICAUrea nitrogen [Mass/Vol]27 mg/dLHigh7-21[facility] on above:Order Comment: Specimen Type: BLOOD SPECIMEN Ordering Facility: [facility] Address: [address] [place], [place] [address]Performed By: #### 25360-6 #### [facility] CLIA [id number] [address] [place] [address] [place] AMERICAGlomerular filtration rate [Volume Rate/Area] in Serum, Plasma or Blood by CreatinineOrdered By: Nathan Hathaway on 08-06-9305Isbjkgenfj filtration rate [Volume Rate/Area] in Serum, Plasma or Blood by Akuxbgkyga96 mL/min/1.73m???Low>=60[facility] Comment on above:Estimated Glomerular Filtration Rate [...] not accurately reflect actual GFR.IMMUNOFIXATION SCREEN, SERUMon 51-45-0096HGKKLMUNMHUICU (MPA)Poorly defined region of restricted mobility in [...] further for monoclonal gammopathy. Clinical correlation is necessary.NormalRegional Medical Center on above:Order Comment: Specimen Type: BLOOD SPECIMEN Ordering Facility: [facility] Address: [address] [place], [place] [address]Performed By: #### 12901-8 #### [facility] CLIA [id number] [address] [place] [address] [place] AMERICAMPA RESULTA poorly defined region of restricted mobility is present that may represent an M protein. AbnormalNo M protein is identified.[facility] on above: Order Comment: Specimen Type: BLOOD SPECIMEN Ordering Facility: [facility] Address: [address] [place], [place] [address]Performed By: #### 23273-9 #### [facility] CLIA [id number] [address] [place] [address] [place] [address] [facility] [address] HOSPITALSTAFF REVIEW ([facility])Reviewed by Dr. Jennifer David [facility] on above:Order Comment: Specimen Type: BLOOD SPECIMEN Ordering Facility: [facility] Address: [address] [place], [place] [address]Performed By: #### 66392-3 #### [facility] CLIA [id number] [address] [place], [place] [address] [place] OF AMERICAIMMUNOGLOBULINS,IGG,IGA,IGM on 48-95-5062UyF [Mass/Vol]64 mg/mZQce57-841FstjsotewRegional Medical Center on above:Order Comment: Specimen Type: BLOOD SPECIMEN Ordering Facility: [facility] Address: [address] [place], [place] [address]Performed By: #### SERIMM #### [facility] CLIA [id number] [address] [place] [address] [place] AMERICAIgG [Mass/Vol]280 mg/dLLow 700-1600[facility] Clinic ClevelandComment on above:Order Comment: Specimen Type: BLOOD SPECIMEN Ordering Facility: [facility] Address: [address] [place], [place] [address]Performed By: #### SERIMM #### [facility] CLIA [id number] [address] [place] [address] [place] AMERICAIgM [Mass/Vol]317 mg/dLHigh 40-230St. Vincent HospitalComment on above:Order Comment: Specimen Type: BLOOD SPECIMEN Ordering Facility: [facility] Address: [address] [place], [place] [address]Performed By: #### SERIMM #### [facility] CLIA [id number] [address] [place] [address] [place] AMERICAIgA [Mass/volume] in Serum or PlasmaOrdered By: Fanny Bedoya on 46-43-7082AlK [Mass/Vol]64 mg/sHAlv77-656 [facility] HospitalIgG [Mass/volume] in Serum or PlasmaOrdered By: Fanny Bedoya on 68-45-1855KhL [Mass/Vol]280 mg/lQZjc601-4696PcvoduopyMary Rutan HospitalIgM [Mass/volume] in Serum or PlasmaOrdered By: Fanny Bedoya on 45-57-6942XsB [Mass/Vol]317 mg/mMIaix74-274AzeugfkkyMary Rutan Hospital Immunoglobulin light chains.kappa.free [Mass/volume] in SerumOrdered By: Nathan Hathaway on 86-98-2342Cpwusmijaiziaq light chains.kappa.free (S) [Mass/Vol] 300.9 mg/LHigh3.3-19.4FCleveland Clinic Akron General Lodi HospitalComment on above:Rarely, increased serum free light chains levels may not be detected or accurately quantified due to prozone phenomenon or in high viscosity samples using this immunoturbidimetric assay. Correlation with other laboratory results and clinical findings is recommended. The Doran Free Light Chain was performed using the Binding Site Optilite immunoturbidimetric method. Result obtained with different assay methods or kits cannot be used interchangeably.Immunoglobulin light chains.kappa.free/Immunoglobulin light chains.lambda.free [MassOrdered By: Nathan Hathaway on 18-03-4915Dxkbsuoiqhnnxw light chains.kappa.free/Immunoglobulin light chains.lambda.free (S) [Mass ratio]12.64 High0.26-1.65[facility] HospitalImmunoglobulin light chains.lambda.free [Mass/volume] in Serum or PlasmaOrdered By: Nathan Hathaway on 43-32-5756Mzmcgwuibcyoba light chains.lambda.free [Mass/Vol]23.8 mg/L5.7-26.3 [facility] HospitalComment on above:Rarely, increased serum free light [...] methods or kits cannot be used interchangeably.KAPPA/BOWLES,FREE,SERon 39-16-7274Blgjczzakpgwaz light chains.kappa.free (S) [Mass/Vol]300.9 mg/LHigh3.3-19.4CMercy Health Clermont Hospital on above:Order Comment: Specimen Type: BLOOD SPECIMEN Ordering Facility: [facility] Address: [address] [place], [place] [address]Result Comment: Rarely, increased serum free light chains levels may not be detected or accurately quantified due to prozone phenomenon or in high viscosity samples using this immunoturbidimetric assay. Correlation with other laboratory results and clinical findings is recommended. The Doran Free Light Chain was performed using the Binding Site Optilite immunoturbidimetric method. Result obtained with different assay methods or kits cannot be used interchangeably.Performed By: #### KLFRS #### [facility] CLIA [id number] [address] [place] [address] [place] AMERICAImmunoglobulin light chains.kappa/Immunoglobulin light chains.lambda (S) [Mass ratio]12.64High 0.26-1.65[facility] on above:Order Comment: Specimen Type: BLOOD SPECIMEN Ordering Facility: [facility] Address: [address] [place], [place] [address]Performed By: #### KLFRS #### [facility] CLIA [id number] [address] [place] [address] [place] AMERICAImmunoglobulin light chains.lambda.free [Mass/Vol]23.8 mg/LNormal5.7-26.3CMartins Ferry Hospital Comment on above:Order Comment: Specimen Type: BLOOD SPECIMEN Ordering Facility: [facility] Address: [address] [place], [place] [address]Result Comment: Rarely, increased serum free light chains [...] be used interchangeably.Performed By: #### KLFRS #### [facility] CLIA [id number] [address] [place] [address] [place] AMERICALaboratory - Chemistry and Chemistry - challengeOrdered By: Nathan Hathaway on 64-58-3228Lzlgwys [Mass/Vol] 3.6 g/dLLow3.9-4.9[facility] HospitalALP [Catalytic activity/Vol] 48 U/H88-219DqwmmibjgMary Rutan HospitalALT [Catalytic activity/Vol]13 U/L 7-38[facility] HospitalAST [Catalytic activity/Vol]22 U/L13-35 [facility] HospitalBilirubin [Mass/Vol]0.3 mg/dL0.2-1.3FCleveland Clinic [facility] Lodi HospitalCalcium [Mass/Vol]8.9 mg/dL8.5-10.2FCleveland Clinic [facility]odi HospitalChloride [Moles/Vol]106 mmol/J35-529KdrzzmyxcMary Rutan HospitalCO2 [Moles/Vol]24 mmol/Z01-71DkcqdabikMary Rutan HospitalCreatinine [Mass/Vol]1.65 mg/dLHigh0.58-0.96[facility] HospitalGlucose [Mass/Vol]100 mg/cFHhwt35-28TuusbhflqMary Rutan HospitalComment on above: The [place] Diabetes Association (ADA) provides guidance for cutoff [...] diabetes.Reference: Standardsof Medical Care in Diabetes 2016, [place] [employer] Association. Diabetes Care. 2016.39(Suppl 1).Potassium [Moles/Vol]5.3 mmol/LHigh3.7-5.1FCleveland Clinic [facility]ron [facility] Lodi HospitalProtein [Mass/Vol]0.00 g/dL<=0.00[facility] Sodium [Moles/Vol]141 mmol/P913-979QkzrweesvMary Rutan HospitalUrea nitrogen [Mass/Vol]27 mg/dLHigh7-21[facility] HospitalNo Panel InformationOrdered By: Nathan Hathaway on 86-13-2893Coeccpwrwyecmf Interpretation [facility] HospitalLeuk/Lymph Sign Pathologist (Misc)Reviewed by Dr. Jennifer David [facility] HospitalMiscellaneous Test 6See commentMary Rutan HospitalComment on above:Not Applicable. Miscellaneous Test CommentReviewed by Dr. Jennifer David [facility]. Charles HospitalProtein Electrophoresis InterpretMary [facility]an Hospital Protein Electrophoresis NoteNo definitive M protein is identified on protein electrophoresis.No definitive M protein is identified on protein electrophoresis.[facility] Northerum ImmunofixationAbnormalNo M protein is identified.[facility] HospitalPROTEIN ELECTROPHORESIS SERUM (P)on 50-91-4375Kkhkjre [Mass/Vol]3.33 g/dLLow3.43-5.41St. Vincent HospitalComment on above:Order Comment: Specimen Type: BLOOD SPECIMEN Ordering Facility: [facility] Address: [address] [place], [place] [address]Performed By: #### 72053-6 #### [facility] CLIA [id number] [address] [place] [address] [place] AMERICAAlpha 1 globulin Elph [Mass/Vol]0.42 g/dLNormal0.18-0.43[facility] on above: Order Comment: Specimen Type: BLOOD SPECIMEN Ordering Facility: [facility] Address: [address] [place], [place] [address]Performed By: #### 63250-8 #### [facility] CLIA [id number] [address] [place] [address] [place] AMERICAAlpha 2 globulin Elph [Mass/Vol]0.86 g/dLNormal0.42-0.98[facility] on above: Order Comment: Specimen Type: BLOOD SPECIMEN Ordering Facility: [facility] Address: [address] [place], [place] [address]Performed By: #### 73460-4 #### [facility] CLIA [id number] [address] [place] [address] STATES OF AMERICABeta globulin Elph [Mass/Vol]0.53 g/dLLow0.61-1.17[facility] on above:Order Comment: Specimen Type: BLOOD SPECIMEN Ordering Facility: [facility] Address: [address] [place], [place] [address]Performed By: #### 82136-9 #### [facility] CLIA [id number] [address] [place] [address] [place] AMERICAGamma globulin Elph [Mass/Vol]0.37 g/dLLow0.53-1.51[facility] on above:Order Comment: Specimen Type: BLOOD SPECIMEN Ordering Facility: [facility] Address: [address] [place], [place] [address]Performed By: #### 27380-7 #### [facility] CLIA [id number] [address] [place] [address] STATES OF AMERICAINTERPRETATION COMMENT FOR PROTEIN ELECTROPHORESISHypogammaglobulinemia is present, which can be seen in the setting of monoclonal gammopathy. If clinically indicated, monoclonal protein analysis and serum free light chain analysis are suggested to evaluate further for monoclonal gammopathy.NormalRegional Medical Center on above:Order Comment: Specimen Type: BLOOD SPECIMEN Ordering Facility: [facility] Address: [address] [place], [place] [address]Performed By: #### 48339-5 #### [facility] CLIA [id number] [address] [place] [address] [place] AMERICAM-PROTEIN LOCATIONNormal [facility] on above:Order Comment: Specimen Type: BLOOD SPECIMEN Ordering Facility: [facility] Address: [address] [place], [place] [address]Result Comment: Not Applicable. Performed By: #### 15100-8 #### [facility] CLIA [id number] [address] [place] [address] [place] AMERICAProtein Fractions [Interp]No definitive M protein is identified on protein electrophoresis.NormalNo definitive M protein is identified on protein electrophoresis.[facility] on above:Order Comment: Specimen Type: BLOOD SPECIMEN Ordering Facility: [facility] Address: [address] [place], [place] [address]Performed By: #### 66699-8 #### [facility] CLIA [id number] [address] [place] [address] [place] AMERICAProtein.monoclonal Elph [Mass/Vol]0.00 g/dLNormal<=0.00[facility] on above:Order Comment: Specimen Type: BLOOD SPECIMEN Ordering Facility: [facility] Address: [address] [place], [place] [address]Performed By: #### 39597-5 #### [facility] CLIA [id number] [address] [place] [address] [place] AMERICASPE STAFF REVIEWReviewed by Dr. Jennifer David MDMarietta Osteopathic Clinic on above:Order Comment: Specimen Type: BLOOD SPECIMEN Ordering Facility: [facility] Address: [address] [place], [place] [address]Performed By: #### 20759-8 #### [facility] CLIA [id number] [address] [place] [address] [place] AMERICAProt SerPl-mCncon 07-08-2025 Protein [Mass/Vol]5.5 g/dLLow6.3-8.0St. Vincent HospitalComeaton rapids [facility] on above: Order Comment: Specimen Type: BLOOD SPECIMEN Ordering Facility: [facility] Address: [address] [place], [place] [address]Performed By: #### 2885-2 #### [facility] CLIA [id number] [address] [place] [address] [place] AMERICAProtein [Mass/volume] in Serum or PlasmaOrdered By: Fanny Bedoya on 21-08-1746Xmjwfex [Mass/Vol]5.5 g/dL Low6.3-8.0[facility] Northerum or plasma alpha 1 globulin measurement by electrophoresis (mass/volume)Ordered By: Nathan Hathaway on 44-66-2345Ddufl 1 globulin Elph [Mass/Vol]0.42 g/dL0.18-0.43[facility] Northerum or plasma alpha 2 globulin measurement by electrophoresis (mass/volume)Ordered By: Nathan Hathaway on 44-24-2935Ktpbl 2 globulin Elph [Mass/Vol]0.86 g/dL0.42-0.98[facility] Northerum or plasma anion gap determinationOrdered By: Nathan Hathaway on 18-25-4922Jugsm gap [Moles/Vol]11 mmol/L8-15[facility] Northerum or plasma beta globulin measurement by electrophoresis (mass/volume)Ordered By: Nathan Hathaway on 82-93-7969Tlkm globulin Elph [Mass/Vol]0.53 g/dLLow0.61-1.17[facility] Northerum or plasma gamma globulin measurement by electrophoresis (mass/volume)Ordered By: Nathan Hathaway on 54-78-7695Tlcnu globulin Elph [Mass/Vol]0.37 g/dLLow0.53-1.51[facility] CNPNon 53-88-0924XZVPQxmbmrtzs (HEMASA) LASHAUN JOAQUIN ([id number]) 1940 F Date Time Provider Department 07/06/25 [...] Date Reviewed: 11/07/2023 Reviewed by: Paolo Casillas APRN.FEED INSPECTION SUPERVISOR - Fully Assessed Reason for Visit: Lab Orders [1688] Cmt: nt Primary Visit Diagnosis:Abnormal SPEP [R77.8] Order(s):COMPLETE BLOOD COUNT AND DIFFERENTIAL [SQCBCDIF] Order #: [id number] FUTURE COMPREHENSIVE METABOLIC PANEL [SQCMP] Order #: [id number] FUTURE PROTEIN ELECTROPHORESIS SERUM W/INTERP [SQSEPG] Order #: [id number] FUTURE MONOCLONAL PROTEIN, SERUM (BLOOD) [SQSERMPA] Order #: [id number] FUTURE Prescriptions as of 07/06/2025 - carvedilol [...] (None) Encounter Status:Closed by FANNY BEDOYA on 07/06/25NoalCMartins Ferry HospitalMicroalbumin [Mass/volume] in UrineOrdered By: Nathan Hathaway on 98-80-8778Elhmool DL <= 20 mg/L (U) [Mass/Vol]20.1 mg/dL<=30.0[facility] HospitalNo Panel InformationOrdered By: Nathan Hathaway on 66-22-4372Ksgle Random Ecclfpfwrb77.52 mg/dL20.00-300.00[facility] HospitalUrine microalbumin/creatinine mass ratioOrdered By: Nathan Hathaway on 06-24-2025 Albumin/Creatinine DL <= 20 mg/L (U) [Mass ratio]237.8 mg/gHigh0.0-29.9[facility] HospitalComment on above:NO MICROALBUMINURIA 0-29 MG/GCLINICAL MICROALBUMINURIA 30-300 MG/GMACROALBUMINURIA >300 MG/GAlbumin [Mass/volume] in Serum or PlasmaOrdered By: Nathan Hathaway on 17-04-5596Umndayz [Mass/Vol]3.2 g/dL 2.9-4.4FCleveland Clinic [facility] Lodi HospitalBasophils Auto (Bld) [#/Vol]Ordered By: Nathan Hathaway on 08-11-7130Ypzjvgtnf (Bld) [#/Vol]0.0 10 3/uL0.0-0.1FCleveland Clinic [facility]odi HospitalBasophils/100 WBC Auto (Bld)Ordered By: Nathan Hathaway on 63-53-5331Trhfpeccr/100 WBC (Bld)0.7 %0.2-2.0[facility] Cholesterol in LDL Calc [Mass/Vol]Ordered By: Nathan Hathaway on 06-23-2025 Cholesterol in LDL [Mass/Vol]60.2 mg/dLMary Rutan HospitalComment on above:<100 mg/dl SYHEYZF634-849 mg/dl NEAR OR ABOVE SMGVSII879-777 mg/dl BORDERLINE XOBY020-089 mg/dl HIGH>190 mg/dl VERY HIGHCholesterol in VLDL Calc [Mass/Vol]Ordered By: Nathan Hathaway on 89-20-0559Czieffviuvt in VLDL [Mass/Vol] 17.8 mg/dLMary Rutan HospitalEosinophils/100 WBC Auto (Bld)Ordered By: Nathan Hathaway on 09-50-9521Sgpuevwtuxa/100 WBC (Bld)2.7 %0.9-7.0[facility] HospitalErythrocyte distribution width Auto (RBC) [Ratio]Ordered By: Nathan Hathaway on 86-59-2578Wjfipkkomqy distribution width (RBC) [Ratio]13.8 %11.0-15.0[facility] HospitalGlobulin Calc (S) [Mass/Vol]Ordered By: Nathan Hathaway on 53-02-8411Fkncllnc (S) [Mass/Vol]3.3 g/dLMary Rutan HospitalGlomerular filtration rate (GFR) estimation in non- AmericanOrdered By: Nathan Hathaway on 40-95-4717SBH/1.73 sq M.predicted among non-blacks MDRD (S/P/Bld) [Vol rate/Area]35 mL/min/{1.73_m2}Low>=60 mL/min/1.73m 2FCleveland Clinic [facility] Lodi HospitalHematocrit Auto (Bld) [Volume fraction]Ordered By: Nathan Hathaway on 94-68-0916Vaedkugvjm (Bld) [Volume fraction]28.3 %Low 36.0-48.0[facility] HospitalHemoglobin [Mass/volume] in Blood Ordered By: Nathan Hathaway on 29-61-0318Ukyxdolxeu (Bld) [Mass/Vol]9.3 g/dLLow 12.0-16.0[facility] HospitalIgA [Mass/volume] in Serum or Plasma Ordered By: Nahtan Hathaway on 28-47-7252JaZ [Mass/Vol]62 mg/xCAgwuxcks48-233 [facility] HospitalIgG [Mass/volume] in Serum or PlasmaOrdered By: Nathan Hathaway on 02-85-4088IhR [Mass/Vol]330 mg/hRXozhbnvy619-1448NdnrlpgyhMary Rutan HospitalIgM [Mass/volume] in Serum or PlasmaOrdered By: Nathan Hathaway on 44-94-8971DwQ [Mass/Vol]325 mg/lPNakduwfg41-914VbjmyfqutMary Rutan HospitalImmunoglobulin light chains.kappa.free [Mass/volume] in Serum Ordered By: Nathan Hathaway on 18-17-1084Dapvpbnqgceeca light chains.kappa.free (S) [Mass/Vol]224.6 mg/LAbnormal3.3-19.4FC[facility] Immunoglobulin light chains.kappa.free/Immunoglobulin light chains.lambda.free [MassOrdered By: Nathan Hathaway on 63-75-6005Xpjtkvdbjsnfak light chains.kappa.free/Immunoglobulin light chains.lambda.free (S) [Mass ratio]10.59 Abnormal0.26-1.65[facility] HospitalComment on above:Performed at: [address] [id number] Director: Carlos Witt PhD, Phone: [phone] light chains.lambda.free [Mass/volume] in Serum or PlasmaOrdered By: Nathan Hathaway on 06-23-2025 Immunoglobulin light chains.lambda.free [Mass/Vol]21.2 mg/L5.7-26.3FC[facility] Clinic [facility] HospitalIron binding capacity [Mass/volume] in Serum or Plasma Ordered By: Nathan Hathaway on 97-50-0040Kacd binding capacity [Mass/Vol]245.0 ug/dZEei550.0-450.0[facility] HospitalIron saturation [Mass Fraction] in Serum or PlasmaOrdered By: Nathan Hathaway on 02-53-5165Jfqt saturation [Mass fraction]14.3 %[facility] HospitalLaboratory - Chemistry and Chemistry - challengeOrdered By: Nathan Hathaway on 81-21-5783JWV [Catalytic activity/Vol]47 U/P52-293PhbfkxfcaMary Rutan HospitalALT [Catalytic activity/Vol]18 U/I16-43OdocdmodzMary Rutan HospitalAST [Catalytic activity/Vol]18 U/Q33-62EozvbiisbMary Rutan HospitalBilirubin [Mass/Vol]0.5 mg/dL0.2-1.0[facility] HospitalCalcium [Mass/Vol]8.9 mg/dL8.5-10.1FC[facility] Clinic [facility] HospitalChloride [Moles/Vol]104 mmol/L 98-107[facility] HospitalCholesterol [Mass/Vol]123 mg/dL<=200 [facility] HospitalCholesterol in HDL [Mass/Vol]45 mg/dL40-60 [facility] HospitalComment on above:> or =60 mg/dl - LOW CARDIOVASCULAR RISK<40 mg/dl - HIGH CARDIOVASCULAR RISKCO2 [Moles/Vol]30.2 mmol/L21.0-32.0[facility] HospitalCobalamin (Vitamin B12) [Mass/Vol]1089 pg/jW788-3675ZzwozedfsMary Rutan HospitalComment on above: Performed at: - [facility] [id number] Director: Carlos Witt PhD, Phone: [phone] [Mass/Vol]1.45 mg/dLHigh0.55-1.02[facility] HospitalFerritin [Mass/Vol]176.0 ng/mL8.0-252.0[facility] HospitalFree T4 [Mass/Vol]0.97 ng/dL 0.76-1.46[facility] HospitalGFR/1.73 sq M.predicted MDRD (S/P/Bld) [Vol rate/Area]42 mL/min/{1.73_m2}Low>=60 mL/min/1.73m 2FC[facility] Clinic [facility] HospitalGlucose [Mass/Vol]94 mg/eS25-325OhmnwdxwgMary Rutan Hospital Iron [Mass/Vol]35.0 ug/dLLow50.0-170.0[facility] HospitalPotassium [Moles/Vol]4.3 mmol/L3.5-5.1FC[facility] HospitalProtein [Mass/Vol] 0.2 g/dLAbnormalNot ObservedMary Rutan HospitalProtein [Mass/Vol] 6.5 g/dL6.4-8.2FWadsworth-Rittman Hospitalodium [Moles/Vol]142 mmol/L 136-145[facility] HospitalTriglyceride [Mass/Vol]89 mg/dL<=150 [facility] HospitalTSH Qn5.101 m[IU]/LHigh0.358-3.740[facility] HospitalUrea nitrogen [Mass/Vol]22.0 mg/dLHigh7.0-18.0[facility] HospitalUrea nitrogen/Creatinine [Mass ratio]15.2 mg/mgMary Rutan HospitalLaboratory - Hematology and Cell countsOrdered By: Nathan Hathaway on 24-69-2653Qpufdkmt granulocytes/100 WBC (Bld)0.4 %0.0-0.5 [facility] HospitalLeukocytes [#/volume] corrected for nucleated erythrocytes in Blood by Automated counOrdered By: Nathan Hathaway on 06-23-2025 WBC corrected for nucl RBC Auto (Bld) [#/Vol]5.6 10 3/uL4.0-11.0[facility] HospitalLymphocytes Auto (Bld) [#/Vol]Ordered By: Nathan Hathaway on 02-59-6391Heiuwoegrjs (Bld) [#/Vol]0.8 10 3/uLLow1.2-3.8[facility] HospitalLymphocytes/100 WBC Auto (Bld)Ordered By: Nathan Isabela on 82-98-1174Eimchpmawnq/100 WBC (Bld)14.4 %Low20.5-60.0[facility] HospitalH Auto (RBC) [Entitic mass]Ordered By: Nathan Hathaway on 24-48-1480XFB (RBC) [Entitic mass]29.0 pg26.7-34.0[facility] HospitalMCHC Auto (RBC) [Mass/Vol]Ordered By: Nathan Hathaway on 44-83-9392GUDW (RBC) [Mass/Vol]32.9 g/dL29.9-35.2FCleveland Clinic [facility] HospitalMCV Auto (RBC) [Entitic vol] Ordered By: Nathan Hathaway on 68-01-0168IUB (RBC) [Entitic vol]88.2 fL81.0-99.0 [facility] HospitalMonocytes Auto (Bld) [#/Vol]Ordered By: Nathan Hathaway on 33-59-7695Dedjhqnih (Bld) [#/Vol]0.5 10 3/uL0.3-0.8[facility]an HospitalMonocytes/100 WBC Auto (Bld)Ordered By: Nathan Hathaway on 37-85-0810Fbbuuduox/100 WBC (Bld)8.7 %1.7-12.0[facility] Neutrophils Auto (Bld) [#/Vol]Ordered By: Nathan Hathaway on 03-37-6482Tdjierfuymq (Bld) [#/Vol]4.1 10 3/uL1.4-6.5FCleveland Clinic [facility] HospitalNeutrophils/100 WBC Auto (Bld)Ordered By: Nathan Hathaway on 94-58-8166Ifzmebjgqyl/100 WBC (Bld) 73.1 %43.0-75.0[facility] HospitalNo Panel InformationOrdered By: Nathan Hathaway on 58-54-5970Otwlugkkgso # (Auto)0.2 10 3/uL0.0-0.7FC[facility] Clinic [facility] HospitalFolate17.90 ng/mL8.60-58.90[facility] HospitalImmature Granulocyte # (Auto)0.02 10 3/uL0.00-0.03[facility] HospitalProtein Electrophoresis NoteComment.[facility] HospitalComment on above:Protein electrophoresis scan will follow via computer,mail, or wrapper stitcher delivery.Platelet mean volume Auto (Bld) [Entitic vol] Ordered By: Nathan Hathaway on 96-16-2612Ebramklw mean volume (Bld) [Entitic vol] 10.2 fL9.5-13.5FCleveland Clinic [facility] HospitalPlatelets Auto (Bld) [#/Vol] Ordered By: Nathan Hathaway on 27-67-1346Rnpyaucmc (Bld) [#/Vol]270 10 3/lW797-000 [facility] HospitalProtein [Mass/volume] in Serum or PlasmaOrdered By: Nathan Hathaway on 20-01-7078Gvgbwef [Mass/Vol]5.7 g/dLAbnormal6.0-8.5 [facility] HospitalRBC Auto (Bld) [#/Vol]Ordered By: Nathan Hathaway on 64-34-2292XIU (Bld) [#/Vol]3.21 10 6/uLLow4.20-5.40[facility] Northerum globulin measurement (mass/volume)Ordered By: Nathan Hathaway on 21-75-8859Gwnixymg (S) [Mass/Vol]2.5 g/dL2.2-3.9[facility] Northerum or plasma albumin/globulin mass ratioOrdered By: Nathan Hathaway on 18-12-9361Xipiiqt/Globulin [Mass ratio]1.0 {ratio}[facility] HospitalAlbumin/Globulin [Mass ratio]1.3 {ratio}0.7-1.7FWadsworth-Rittman Hospitalerum or plasma alpha 1 globulin measurement by electrophoresis (mass/volume)Ordered By: Nathan Hathaway on 80-82-4554Jfbhx 1 globulin Elph [Mass/Vol]0.3 g/dL0.0-0.4FWadsworth-Rittman Hospitalerum or plasma alpha 2 globulin measurement by electrophoresis (mass/volume)Ordered By: Nathan Hathaway on 64-07-3608Dihhb 2 globulin Elph [Mass/Vol]1.0 g/dL0.4-1.0[facility] Northerum or plasma anion gap determinationOrdered By: Nathan Hathaway on 71-39-7730Iqzde gap [Moles/Vol]12.1 mmol/LFCleveland Clinic [facility] Hospital Serum or plasma beta globulin measurement by electrophoresis (mass/volume) Ordered By: Nathan Hathaway on 99-75-2890Rvkw globulin Elph [Mass/Vol]0.7 g/dL 0.7-1.3FWadsworth-Rittman Hospitalerum or plasma gamma globulin measurement by electrophoresis (mass/volume)Ordered By: Nathan Hathaway on 30-63-2156Evvzs globulin Elph [Mass/Vol]0.5 g/dL0.4-1.8[facility] Northerum or plasma immunoelectrophoresis interpretationOrdered By: Nathan Hathaway on 08-49-7916Mzygyolneqbbcs IEP [Interp]CommentAbnormal.[facility] HospitalComment on above:Immunofixation shows IgM monoclonal protein with kappalight chain specificity.Serum or plasma total cholesterol/high density lipoprotein (HDL) cholesterol mass ratOrdered By: Nathan Hathaway on 01-40-0049Wlmlrpaqcis.total/Cholesterol in HDL [Mass ratio]2.7 {ratio}[facility] HospitalComment on above:3.3 - 4.4 LOW RISK4.4 - 7.1 AVERAGE RISK7.1 - 11.0 MODERATE RISK>11.0 HIGH RISKEstimated glomerular filtration rate (GFR) non- Americanon 39-86-6318CXR/1.73 sq M.predicted among non-blacks MDRD (S/P/Bld) [Vol rate/Area]Estimated glomerular filtration rate (GFR) non- AmericanLow>=60 mL/min/1.73m [address] [place], [place] [address]GFR/1.73 sq M.predicted among non-blacks MDRD (S/P/Bld) [Vol rate/Area]31 mL/min/{1.73_m2}Low>=60 mL/min/1.73m [address] [place] [address] Laboratory - Chemistry and Chemistry - challengeon 87-08-2938Ulerlgw [Mass/Vol] 8.9 mg/dL8.5-10.1FC[facility] HospitalChloride [Moles/Vol]105 mmol/L 98-107[facility] HospitalCO2 [Moles/Vol]30.7 mmol/L21.0-32.0 [facility] HospitalCreatinine [Mass/Vol]1.60 mg/dLHigh0.55-1.02 [facility] HospitalGFR/1.73 sq M.predicted MDRD (S/P/Bld) [Vol rate/Area]37 mL/min/{1.73_m2}Low>=60 mL/min/1.73m 2FC[facility] Clinic [facility] HospitalGlucose [Mass/Vol]112 mg/tWAazv07-340GxkocddybMary Rutan Hospital Potassium [Moles/Vol]4.4 mmol/L3.5-5.1FWadsworth-Rittman Hospitalodium [Moles/Vol]145 mmol/C515-163XwsjbikwkMary Rutan HospitalTSH Qn3.657 m[IU]/L 0.358-3.740[facility] HospitalUrea nitrogen [Mass/Vol]33.0 mg/dL High7.0-18.0[facility] HospitalUrea nitrogen/Creatinine [Mass ratio]20.6 mg/mgSelect Medical Specialty Hospital [facility] Northerum or plasma anion gap determinationon 37-89-0274Dldjm gap [Moles/Vol]Serum or plasma anion gap determinationMary Rutan HospitalAnion gap [Moles/Vol]13.7 mmol/L [facility] HospitalTRANSTHORACIC ECHO (TTE) COMPLETEon 03-17-2025 TRANSTHORACIC ECHO (TTE) [address], [address] [place] [address] TRANSTHORACIC ECHOCARDIOGRAM REPORT Patient Name: LASHAUN JEMAL Doherty Physician: [id number] Bryce Guy MD, [facility] Study Date: 03/17/2025 Ordering Provider: [id number] HOLDEN ROSADO MRN/PID: [id number] Fellow: Nurse: Date of /Age: 11 1940 Make Up Operator Helper: Nicolasa taylor RDCS, RVT Gender Assigned at F Additional Staff: : Height: 165.10 cm Admit Date: Weight: 90.72 kg Admission Status: BSA / BMI: 1.98 m2 / 33.28 Department Location: [facility] kg/m2 Heart Rossy Blood Pressure: 120 /64 mmHg Study Type: TRANSTHORACIC ECHO (TTE) COMPLETE Diagnosis/ICD: Essential (primary) hypertension-I10; Palpitations-R00.2 Indication: CAD, PTCA-2022, Edema, Hyperlipidemia, Former Smoker CPT Codes: Echo Complete w Full Doppler-46146 Study Detail: The following Echo studies were [...] VALVE: Normal Ranges: RV (more content not included)...[facility] HealthAcanthocytes [Presence] in Blood by Light microscopyOrdered By: Jorge L Cruz on 51-23-4183Ypjnqhmdnwfg LM Ql (Bld)Acanthocytes [Presence] in Blood by Light microscopyMary Rutan HospitalAlanine aminotransferase [Enzymatic activity/volume] in Serum or PlasmaOrdered By: Jorge L Cruz on 43-60-9689WGU [Catalytic activity/Vol]Alanine aminotransferase [Enzymatic activity/volume] in Serum or Plasma7-52[facility] HospitalAlbumin [Mass/volume] in Serum or Plasma by Bromocresol green (BCG) dye binding metho Ordered By: Jorge L Cruz on 81-55-0620Epbbjja BCG dye [Mass/Vol]Albumin [Mass/volume] in Serum or Plasma by Bromocresol green (BCG) dye binding metho 3.5-5.7FC[facility] Clinic [facility] HospitalAlkaline phosphatase [Enzymatic activity/volume] in Serum or PlasmaOrdered By: Jorge L Cruz on 02-12-2025 ALP [Catalytic activity/Vol]Alkaline phosphatase [Enzymatic activity/volume] in Serum or Fqdjwz62-085NmvglxacwMary Rutan HospitalAnisocytosis LM Ql (Bld) Ordered By: Jorge L Cruz on 92-83-4590Ogjbxzfbcakk Ql (Bld)Anisocytosis [Presence] in Blood by Light microscopyMary Rutan Hospital Aspartate aminotransferase [Enzymatic activity/volume] in Serum or PlasmaOrdered By: Jorge L Cruz on 16-14-0672PDM [Catalytic activity/Vol]Aspartate aminotransferase [Enzymatic activity/volume] in Serum or Pazorm32-69YlthcygchMary Rutan HospitalB-Type Natriuretic Peptideon 10-54-8476Uytknpxhfkj peptide B (Bld) [Mass/Vol]246.0 pg/mLHigh5-100The [facility] Comment on above:Result Comment: PERFORMED BY: [facility] [address] [id number] PATHOLOGIST SULFUR CHLORIDE OPERATOR RAMEZ MONTES M.D.Performed By: #### SCAN CBC, CK, HS TROP, BNP, PT, PTT ####[facility] Basophils Auto (Bld) [#/Vol]Ordered By: Jorge L rCuz on 60-86-7372Ozfrsxota (Bld) [#/Vol]Automated basophil count0.0-0.2FC[facility] Basophils/100 WBC Auto (Bld)Ordered By: Jorge L Cruz on 02-12-2025 Basophils/100 WBC (Bld)Automated basophil %.[facility] Bilirubin.total [Mass/volume] in Serum or PlasmaOrdered By: Jorge L Cruz on 49-64-4678Praoqhiyr [Mass/Vol]Bilirubin.total [Mass/volume] in Serum or Plasma 0.3-1.0[facility] HospitalCalcium [Mass/volume] in Serum or Plasma Ordered By: Jorge L Cruz on 87-95-0414Phbqmjf [Mass/Vol]Calcium [Mass/volume] in Serum or Plasma8.6-10.3FC[facility] Clinic [facility] HospitalCarbon dioxide, total [Moles/volume] in Serum or PlasmaOrdered By: Jorge L Cruz on 90-99-2682QU3 [Moles/Vol]Carbon dioxide, total [Moles/volume] in Serum or Gtrsut41.0-31.0[facility] HospitalChloride [Moles/volume] in Serum or PlasmaOrdered By: Jorge L Cruz on 37-30-5213Cfqpmpix [Moles/Vol] Chloride [Moles/volume] in Serum or Ggqiud00-664OgepopxokMary Rutan HospitalComprehensive Metabolic Panelon 68-27-8515Gzdxqxt [Mass/Vol]3.8 g/dLNormal 3.5-5.7The [facility] Hospital Physician GroupComment on above:Performed By: #### TSH3, CMP, MG #### [facility] [address] [place] [address] USAAlbumin/Globulin [Mass ratio]1.6 {ratio}NormalThe [facility] Hospital Physician GroupComment on above:Performed By: #### TSH3, CMP, MG #### [facility] [address] [id number] USAALP [Catalytic activity/Vol]43 U/CAzgavf14-653Rmg [facility] Physician GroupComment on above:Performed By: #### TSH3, CMP, MG #### [facility] [address] [place] [address] USAALT [Catalytic activity/Vol]14 U/LNormal7-52The [facility] Hospital Physician GroupComment on above:Performed By: #### TSH3, CMP, MG #### [facility] [address] [place] [address] USAAnion gap [Moles/Vol]11.4 mmol/LNormal6.0-15.0The [facility] Hospital Physician GroupComment on above:Performed By: #### TSH3, CMP, MG #### [facility] [address] [place] [address] USAAST [Catalytic activity/Vol]19 U/POowjko71-60Viu [facility] Physician GroupComment on above:Performed By: #### TSH3, CMP, MG #### [facility] [address] [place] [address] USABilirubin [Mass/Vol]0.4 mg/dLNormal0.3-1.0The [facility] Hospital Physician GroupComment on above:Performed By: #### TSH3, CMP, MG #### [facility] [address] [place] [address] USACalcium [Mass/Vol]9.1 mg/dLNormal8.6-10.3The [facility] Hospital Physician GroupComment on above:Performed By: #### TSH3, CMP, MG #### [facility] [address] [place] [address] USAChloride [Moles/Vol]107 mmol/RXqvgvc05-802Jkt [facility] Physician GroupComment on above:Performed By: #### TSH3, CMP, MG #### [facility] [address] [place] [address] USACO2 [Moles/Vol]27.7 mmol/UPowqcv20.0-31.0The [facility] Hospital Physician GroupComment on above:Performed By: #### TSH3, CMP, MG #### [facility] [address] [place] [address] USACreatinine [Mass/Vol]1.28 mg/dLHigh0.60-1.20The [facility] Hospital Physician GroupComment on above:Performed By: #### TSH3, CMP, MG #### [facility] [address] [place] [address] USACreatinine Clr Calc Svehnvlz66.75NoNovant Health [facility] Center Physician GroupComment on above:Performed By: #### TSH3, CMP, MG #### [facility] [address] [place] [address] USAEstimated GFR41.827 mL/MinNoNovant Health [facility] Center Physician GroupComment on above:Performed By: #### TSH3, CMP, MG #### [facility] [address] [place] [address] USAGlobulin (S) [Mass/Vol]2.4 g/dLNoNovant Health [facility] Center Physician GroupComment on above:Performed By: #### TSH3, CMP, MG #### [facility] [address] [place] [address] USAGlucose [Mass/Vol]102 mg/jCXhar06-638Gmt [facility] Physician GroupComment on above:Result Comment: Random Glucose Reference Range is dependent on time and content of last meal. Glucose of more than 200 mg/dL in a nonstressed, ambulatory subject supports the diagnosis of Diabetes Mellitus. ADA recommended reference rangePerformed By: #### TSH3, CMP, MG #### [facility] [address] [place] [address] USAPotassium [Moles/Vol]4.1 mmol/LNormal3.5-5.1The [facility] Hospital Physician GroupComment on above:Performed By: #### TSH3, CMP, MG #### [facility] [address] [place] [address] USAProtein [Mass/Vol]6.2 g/dLLow6.4-8.9The [facility] Hospital Physician GroupComment on above:Performed By: #### TSH3, CMP, MG #### [facility] [address] [place] [address] USASodium [Moles/Vol]142 mmol/EJqtgje798-095Bjt [facility] Physician GroupComment on above:Performed By: #### TSH3, CMP, MG #### [facility] [address] [place] [address] USAUrea nitrogen [Mass/Vol]28 mg/dLHigh7-25The [facility] Hospital Physician GroupComment on above:Performed By: #### TSH3, CMP, MG #### [facility] [address] [id number] USACreatine Kinaseon 72-06-2294BI [Catalytic activity/Vol]35 U/AXifpbm62-447Kbl [facility] Physician GroupComment on above:Performed By: #### SCAN CBC, CK, HS TROP, BNP, PT, PTT ####[facility] [address] [id number] USACreatine kinase [Enzymatic activity/volume] in Serum or PlasmaOrdered By: Jorge L Cruz on 90-34-7358GR [Catalytic activity/Vol] Creatine kinase [Enzymatic activity/volume] in Serum or Fbjetr87-613KfpdxoxdrMary Rutan HospitalCreatinine [Mass/volume] in Serum or PlasmaOrdered By: Jorge L Cruz on 94-10-5606Vfwghqhmpo [Mass/Vol]Creatinine [Mass/volume] in Serum or PlasmaHigh0.60-1.20[facility] HospitalECG 12 lead ECGon 59-50-7421ZYI 12 lead [facility]GFORT [facility] [address] [place] [address] [place] [address] Electrocardiograph Report Signed Patient: Lashaun Joaquin MR#: [id number] 99 : 1940 Acct:[id number] Age/Sex: 84 / F ADM Date: 02/12/25 Loc: ER Room: Type: [facility] ER Attending Dr: Ordering Provider: [...] rhythm Confirmed by Jorge L CRUZ DO ([id number]) on 02/12/2025 10:52:00 AM Referred By: Electronically Signed By: Jorge L CRUZ DO Transcribed By: MUS Signed By Jorge L Cruz DO 0 02/12/[address] [place] [address] Physician GroupEosinophils Auto (Bld) [#/Vol] Ordered By: Jorge L Cruz on 19-67-4836Ngssgpxkghj (Bld) [#/Vol]Automated eosinophil count0.0-0.45[facility] HospitalEosinophils/100 WBC Auto (Bld)Ordered By: Jorge L Cruz on 00-22-5671Vhixxmtbrij/100 WBC (Bld) Automated eosinophil %.[facility] HospitalErythrocyte distribution width Auto (RBC) [Ratio]Ordered By: Jorge L Cruz on 19-04-2290Jyxbyvdmpgl distribution width (RBC) [Ratio]Erythrocyte distribution width [Ratio] by Automated count11.9-15.3FC[facility] Clinic [facility] HospitalErythrocyte morphology finding [Identifier] in BloodOrdered By: Jorge L Cruz on 27-46-2252QCL morphology finding Nom (Bld)RBC morphologyMary Rutan Hospital Globulin Calc (S) [Mass/Vol]Ordered By: Jorge L Cruz on 52-26-7617Rbxqjxis (S) [Mass/Vol]Serum globulin measurement by calculation (mass/volume)[facility] HospitalGlucose [Mass/volume] in Serum or PlasmaOrdered By: Jorge L Cruz on 92-42-7819Bbosfvj [Mass/Vol]Glucose [Mass/volume] in Serum or PaxuvrOejb08-808LfsecatvfMary Rutan HospitalComment on above:ADA recommended reference rangeRandom Glucose Reference Range is dependent on time and content of last meal. Glucose of more than 200 mg/dL in a nonstressed, ambulatory subject supports the diagnosisof Diabetes Mellitus.Hematocrit Auto (Bld) [Volume fraction]Ordered By: Jorge L Cruz on 29-58-5321Mzwznkrwtn (Bld) [Volume fraction]Hematocrit [Volume Fraction] of Blood by Automated count Low34.0-46.4FCleveland Clinic [facility] HospitalHemoglobin [Mass/volume] in Blood Ordered By: Jorge L Cruz on 82-23-5539Aqxvuajfnc (Bld) [Mass/Vol]Hemoglobin [Mass/volume] in PngfdCfz11.8-15.4FCleveland Clinic [facility] HospitalINR in Platelet poor plasma by Coagulation assayOrdered By: Jorge L Cruz on 15-77-4454KKK Coag (PPP) [Relative time]INR in Platelet poor plasma by Coagulation assayMary Rutan HospitalComment on above:INR Therapeutic Range A) Pre- [...] Automated counOrdered By: Jorge L Cruz on 00-34-7937ATM corrected for nucl RBC Auto (Bld) [#/Vol]Leukocytes [#/volume] corrected for nucleated erythrocytes in Blood by Automated coun3.8-11.6FC[facility] Clinic [facility] HospitalLymphocytes Auto (Bld) [#/Vol]Ordered By: Jorge L Cruz on 59-80-2799Jnuphiioxil (Bld) [#/Vol]Lymphocytes [#/volume] in Blood by Automated countLow1.00-4.8[facility] HospitalLymphocytes/100 WBC Auto (Bld)Ordered By: Jorge L Cruz on 77-14-3989Jlzhekwpwdy/100 WBC (Bld)Lymphocytes/100 leukocytes in Blood by Automated count.[facility] HospitalH Auto (RBC) [Entitic mass]Ordered By: Jorge L Cruz on 77-94-9021QUW (RBC) [Entitic mass]MCH [Entitic mass] by Automated count24.7-34.3FC[facility] Clinic [facility] HospitalMCHC Auto (RBC) [Mass/Vol]Ordered By: Jorge L Cruz on 09-39-3435LATR (RBC) [Mass/Vol]MCHC [Mass/volume] by Automated count32.0-35.0[facility] Children's HospitalV Auto (RBC) [Entitic vol]Ordered By: Jorge L Cruz on 00-89-8442CDB (RBC) [Entitic vol]MCV [Entitic volume] by Automated -023 [facility] HospitalMagnesiumon 20-55-4816Otbssigoc [Mass/Vol]2.3 mg/dLNormal1.9-2.7The [facility] Physician GroupComment on above:Performed By: #### TSH3, CMP, MG #### [place] [address] USAMagnesium [Mass/volume] in Serum or PlasmaOrdered By: Jorge L Cruz on 79-22-6677Wpzfrazxe [Mass/Vol]Magnesium [Mass/volume] in Serum or Plasma1.9-2.7FC[facility] Clinic [facility] HospitalMicrocytes LM Ql (Bld) Ordered By: Jorge L Cruz on 99-07-5890Sjojfwktyh Ql (Bld)Microcytes [Presence] in Blood by Light microscopyMary Rutan HospitalMonocyte distribution width [Entitic volume] in Blood by AutomatedOrdered By: Jorge L Cruz on 76-14-9393Uwqrgexj distribution width Auto (Bld) [Entitic vol] Monocyte distribution width [Entitic volume] in Blood by AutomatedHigh0.00-20.00 [facility] HospitalComment on above:For adults in ED, MDW > 20.0 may be associated with a higher risk of sepsis during the first 12 hrs of hospital admissionMonocytes Auto (Bld) [#/Vol]Ordered By: Jorge L Cruz on 11-27-4513Ozlhabvwb (Bld) [#/Vol]Automated blood monocyte count0.0-0.8[facility] HospitalMonocytes/100 WBC Auto (Bld)Ordered By: Jorge L Cruz on 18-62-8519Ftvqvsyde/100 WBC (Bld)Automated monocyte %.[facility] HospitalNatriuretic peptide B [Mass/Vol]Ordered By: Jorge L Cruz on 65-03-0523Vzssfvbderu peptide B (Bld) [Mass/Vol]BNP ser/plasHigh5-100[facility] HospitalNeutrophils Auto (Bld) [#/Vol]Ordered By: Jorge L Cruz on 07-62-8652Elnnqraijue (Bld) [#/Vol]Neutrophils [#/volume] in Blood by Automated count1.8-7.7FC[facility] Clinic [facility] HospitalNeutrophils/100 WBC Auto (Bld)Ordered By: Jorge L Cruz on 27-45-8038Ggvviyfmyap/100 WBC (Bld) Automated neutrophil %.[facility] HospitalNo Panel Information Ordered By: Jorge L Cruz on 53-77-6171Prbsbltku GFR (CKD-EPI)41.827 mL/Min [facility] HospitalPharmacy Creatinine Clearance (Chem37.75 [facility] HospitalNucleated erythrocytes [Presence] in Blood by Automated countOrdered By: Jorge L Cruz on 11-50-2824Bakkykebn RBC Auto Ql (Bld)Nucleated erythrocytes [Presence] in Blood by Automated count0-0.5FCleveland Clinic [facility] HospitalOvalocytes [Presence] in Blood by Light microscopy Ordered By: Jorge L Cruz on 73-66-7711Wfkaqqkemj LM Ql (Bld)Ovalocyte detectionMary Rutan HospitalPartial Thromboplastin Timeon 76-45-2958lEUY Coag (Bld) [Time]29.8 jOgfgqq74.1-36.5The [facility] Hospital Physician GroupComment on above:Result Comment: A hematocrit value greater than 55% may lead to inaccurate results in coagulation testing. Patients having hematocrit values >55% require a special collection tube for coagulation studies. Please contact the laboratory at [phone] for redraw instructions. PERFORMED BY: [facility] [address] [place] [address] PATHOLOGIST SULFUR CHLORIDE OPERATOR RAMEZ MONTES M.D.Performed By: #### SCAN CBC, CK, HS TROP, BNP, PT, PTT ####[facility] [address] [address] [facility] Platelet adequacy [Presence] in Blood by Light microscopyOrdered By: Jorge L Cruz on 38-81-9468Elxzpwlnn LM Ql (Bld)Platelet adequacy [Presence] in Blood by Light microscopyNormalMary Rutan HospitalPlatelet mean volume Auto (Bld) [Entitic vol]Ordered By: Jorge L Cruz on 98-94-6976Nnmdimcc mean volume (Bld) [Entitic vol]Platelet mean volume [Entitic volume] in Blood by Automated count6.3-10.7FC[facility] Clinic [facility] HospitalPlatelet morphology finding [Identifier] in BloodOrdered By: Jorge L Cruz on 64-14-0511Pynqzgou morphology finding Nom (Bld)Platelet morphology finding [Identifier] in Blood NormalMary Rutan HospitalPlatelets Auto (Bld) [#/Vol]Ordered By: Jorge L Cruz on 45-12-7799Jnqyqzimi (Bld) [#/Vol]Platelets [#/volume] in Blood by Automated llqko305-682YrechvmghMary Rutan HospitalPoikilocytosis [Presence] in Blood by Light microscopyOrdered By: Jorge L Cruz on 09-54-9732Sxoirwxbphqatz LM Ql (Bld)Poikilocytosis [Presence] in Blood by Light microscopyMary Rutan HospitalPotassium [Moles/volume] in Serum or PlasmaOrdered By: Jorge L Cruz on 92-39-7955Wzlkchkkg [Moles/Vol]Potassium [Moles/volume] in Serum or Plasma3.5-5.1FC[facility] Clinic [facility] HospitalProtein [Mass/volume] in Serum or PlasmaOrdered By: Jorge L Cruz on 02-12-2025 Protein [Mass/Vol]Protein [Mass/volume] in Serum or PlasmaLow6.4-8.9[facility] HospitalProthrombin Time INRon 96-22-2848ONO Coag (PPP) [Relative time]1.0 {INR}NormalThe Saint [facility]ianney HospitalComment on above:Result Comment: INR Therapeutic Range A) [...] CBC, CK, HS TROP, BNP, PT, PTT ####[facility] [place] [address] USAPT Coag (PPP) [Time]11.3 sNormal9.0-12.9The [facility]ianney HospitalComment on above:Result Comment: A hematocrit value greater than 55% may lead to inaccurate results in coagulation testing. Patients having hematocrit values >55% require a special collection tube for coagulation studies. Please contact the laboratory at [phone] for redraw instructions.Performed By: #### SCAN CBC, CK, HS TROP, BNP, PT, PTT ####[place] [address] [place] [id number] [facility] Prothrombin time (PT)Ordered By: Jorge L Cruz on 35-94-3866PC Coag (PPP) [Time]Prothrombin time (PT)9.0-12.9[facility] HospitalComment on above:A hematocrit value greater than 55% may lead to inaccurate results in coagulation testing. Patientshaving hematocrit values >55% require a special collection tube for coagulation studies. Please contact the laboratory at [phone] for redraw instructions.RBC Auto (Bld) [#/Vol]Ordered By: Jorge L Cruz on 85-85-3618NYH (Bld) [#/Vol]Erythrocytes [#/volume] in Blood by Automated countLow3.60-5.00[facility] Northcan and CBCon 53-56-7101XdpbztwgajntKcaszzVcmbgyZowArizona Spine and Joint HospitalComment on above: Performed By: #### SCAN CBC, CK, HS TROP, BNP, PT, PTT ####[address] [place] [address] USAAnisocytosis Ql (Bld)Moderate NormalThe [facility] Hospital Physician GroupComment on above:Performed By: #### SCAN CBC, CK, HS TROP, BNP, PT, PTT ####[place] [address] USABasophils (Bld) [#/Vol]0.0 10*3/uLNormal0.0-0.2The [facility] Hospital Physician GroupComment on above:Performed By: #### SCAN CBC, CK, HS TROP, BNP, PT, PTT ####[place] [address] USABasophils/100 WBC (Bld)0.6 %Normal.The [facility] Comment on above:Performed By: #### SCAN CBC, CK, HS TROP, BNP, PT, PTT ####[address] Eosinophils (Bld) [#/Vol]0.1 10*3/uLNormal0.0-0.45The [facility] Comment on above:Performed By: #### SCAN CBC, CK, HS TROP, BNP, PT, PTT ####[address] Eosinophils/100 WBC (Bld)1.5 %Normal.The [facility] Hospital Physician GroupComment on above:Performed By: #### SCAN CBC, CK, HS TROP, BNP, PT, PTT ####[address]Erythrocyte distribution width (RBC) [Ratio]13.8 %Urkegy94.9-15.3The [facility]-Rainey [facility] Hospital Physician GroupComment on above:Performed By: #### SCAN CBC, CK, HS TROP, BNP, PT, PTT ####[address] Hematocrit (Bld) [Volume fraction]29.7 %Low34.0-46.4The [facility] Physician GroupComment on above:Performed By: #### SCAN CBC, CK, HS TROP, BNP, PT, PTT ####[address] Hemoglobin (Bld) [Mass/Vol]10.2 g/dLLow11.8-15.4The [facility] Comment on above:Performed By: #### SCAN CBC, CK, HS TROP, BNP, PT, PTT ####[address] Lymphocytes (Bld) [#/Vol]0.9 10*3/uLLow1.00-4.8The [facility] Comment on above:Performed By: #### SCAN CBC, CK, HS TROP, BNP, PT, PTT ####[address] Lymphocytes/100 WBC (Bld)13.6 %Normal.The [facility] Physician GroupComment on above:Performed By: #### SCAN CBC, CK, HS TROP, BNP, PT, PTT ####[address]H (RBC) [Entitic mass]28.9 foLzbzqo40.7-34.3The [facility] Physician GroupComment on above: Performed By: #### SCAN CBC, CK, HS TROP, BNP, PT, PTT ####[address]V (RBC) [Entitic vol]83.9 fL Wklwsc84-477Khp [facility] Physician GroupComment on above:Performed By: #### SCAN CBC, CK, HS TROP, BNP, PT, PTT ####[place] [address] USAMean Corpuscular HGB Conc34.5 g/bKPrkmkv54.0-35.0The [facility] Physician GroupComment on above:Performed By: #### SCAN CBC, CK, HS TROP, BNP, PT, PTT ####[place] [address] USAMicrocytosisModerateNormalThe [facility] Physician GroupComment on above:Performed By: #### SCAN CBC, CK, HS TROP, BNP, PT, PTT ####[place] [address] USAMonocytes (Bld) [#/Vol]0.4 10*3/uLNormal0.0-0.8The [facility] Physician GroupComment on above: Performed By: #### SCAN CBC, CK, HS TROP, BNP, PT, PTT ####[place] [address] USAMonocytes/100 WBC (Bld)21.49 % High0.00-20.00The [facility] Physician GroupComment on above:Result Comment: For adults in ED, MDW > 20.0 may be associated with a higher risk of sepsis during the first 12 hrs of hospital admissionPerformed By: #### SCAN CBC, CK, HS TROP, BNP, PT, PTT ####[place] [address] USAMonocytes/100 WBC (Bld)6.6 %Normal.The [facility] Physician GroupComment on above:Performed By: #### SCAN CBC, CK, HS TROP, BNP, PT, PTT ####[place] [address] [place] Neutrophils (Bld) [#/Vol]4.9 10*3/uLNormal1.8-7.7The [facility] Comment on above:Performed By: #### SCAN CBC, CK, HS TROP, BNP, PT, PTT ####[place] [address] [place] Neutrophils/100 WBC (Bld)77.7 %Normal.The [facility] Physician GroupComment on above:Performed By: #### SCAN CBC, CK, HS TROP, BNP, PT, PTT ####[place] [address] USANRBC%0.1 /100{WBC} Normal0-0.5The [facility] Physician GroupComment on above:Performed By: #### SCAN CBC, CK, HS TROP, BNP, PT, PTT ####[place] [id number] USAOvalocytesSlightNormMelbourne Regional Medical Center Physician Group Comment on above:Performed By: #### SCAN CBC, CK, HS TROP, BNP, PT, PTT ####[address] [address] USAPlatelet EstimateNormalNormalNormMelbourne Regional Medical Center Physician GroupComment on above: Performed By: #### SCAN CBC, CK, HS TROP, BNP, PT, PTT ####[address] [address] USAPlatelet mean volume (Bld) [Entitic vol]7.7 fLNormal6.3-10.7The [facility] Physician [facility] MadisonComment on above: Performed By: #### SCAN CBC, CK, HS TROP, BNP, PT, PTT ####[address] [address] USAPlatelet MorphologyNormalNormal NormalThe [facility] Physician GroupComment on above:Result Comment: PERFORMED BY: [facility] [address] [place] [address] PATHOLOGIST SULFUR CHLORIDE OPERATOR RAMEZ MONTES M.D.Performed By: #### SCAN CBC, CK, HS TROP, BNP, PT, PTT ####[address] [address] [place] Platelets (Bld) [#/Vol]383 10*3/pSClxiip711-890Aww [facility] Physician [facility] Comment on above:Performed By: #### SCAN CBC, CK, HS TROP, BNP, PT, PTT ####[address] [address] USA PoikilocytosisModerateNormMelbourne Regional Medical Center Physician GroupComment on above: Performed By: #### SCAN CBC, CK, HS TROP, BNP, PT, PTT ####[address] [address] USARBC (Bld) [#/Vol]3.54 10*6/uL Low3.60-5.00The [facility] Physician [facility] MadisonComment on above:Performed By: #### SCAN CBC, CK, HS TROP, BNP, PT, PTT ####[facility] [place] [address] USAWBC (Bld) [#/Vol]6.3 10*3/uLNormal3.8-11.6The [facility] Physician GroupComment on above:Performed By: #### SCAN CBC, CK, HS TROP, BNP, PT, PTT ####[facility] [place] [address] USAWBC (Bld) [#/Vol]7.6 10*3/uLNormal3.8-11.6The [facility] Physician GroupComment on above:Performed By: #### SCAN CBC, CK, HS TROP, BNP, PT, PTT ####[facility] [place] [address] USASerum or plasma albumin/globulin mass ratioOrdered By: Jorge L Cruz on 02-12-2025 Albumin/Globulin [Mass ratio]Serum or plasma albumin/globulin mass ratio [facility] Northerum or plasma anion gap determinationOrdered By: Jorge L Cruz on 02-33-7215Xnxey gap [Moles/Vol]Serum or plasma anion gap determination6.0-15.0[facility] Northodium [Moles/volume] in Serum or PlasmaOrdered By: Jorge L Cruz on 14-20-5075Dhdvpo [Moles/Vol] Sodium [Moles/volume] in Serum or Uskvzp054-890FhuxclphnMary Rutan Hospital Thyroid Stimulating Hormoneon 45-55-7763YIH Qn6.48 m[IU]/LHigh0.45-5.33The [facility] Physician GroupComment on above:Result Comment: PERFORMED BY: [facility] [address] [facility] [place] [address] PATHOLOGIST SULFUR CHLORIDE OPERATOR RAMEZ MONTES M.D.Performed By: #### TSH3, CMP, MG #### [facility] [address] [place] [address] USAThyrotropin [Units/volume] in Serum or PlasmaOrdered By: Jorge L Cruz on 69-66-5416OAU QnThyrotropin [Units/volume] in Serum or PlasmaHigh0.45-5.33Mary Rutan HospitalTroponin I High Sensitivity on 51-10-2392Cvdccrsa I High Gqmyaefcgrn11Vzqsno5-29Jfk [facility] Physician GroupComment on above:Result Comment: The Troponin units of report have been changed to meet the Chest Pain Accreditation requirement, element EC5.M1l2. Troponin units are changed from pg/ml to ng/L. Also, the decimal is removed and results are in whole numbers. PERFORMED BY: [place] [address] PATHOLOGIST SULFUR CHLORIDE OPERATOR RAMEZ MONTES M.D.Performed By: #### HS TROP ####[address] [address] USATroponin I High Ljxvgtrsohd41 Normal0-15The [facility] Physician GroupComment on above:Result Comment: The Troponin units of report have been changed to meet the Chest Pain Accreditation requirement, element EC5.M1l2. Troponin units are changed from pg/ml to ng/L. Also, the decimal is removed and results are in whole numbers. PERFORMED BY: [place] [id number] PATHOLOGIST SULFUR CHLORIDE OPERATOR RAMEZ MONTES M.D.Performed By: #### SCAN CBC, CK, HS TROP, BNP, PT, PTT ####[place] [id number] [facility] Troponin I.cardiac [Mass/volume] in Serum or Plasma by Detection limit <= 0.01 ng/Ordered By: Jorge L Cruz on 47-40-2093Nnfcoziw I.cardiac DL <= 0.01 ng/mL [Mass/Vol]Troponin I.cardiac [Mass/volume] in Serum or Plasma by Detection limit <= 0.01 ng/0-15Mary Rutan HospitalComment on above:The Troponin units of report have been changed to meet the Chest Pain Accreditation requirement, element EC5.M1l2. Troponin units are changed from pg/ml to ng/L. Also, the decimal is removed and results are in whole numbers.Urea nitrogen [Mass/volume] in Serum or PlasmaOrdered By: Jorge L Cruz on 78-09-7772Tdil nitrogen [Mass/Vol]Urea nitrogen [Mass/volume] in Serum or PlasmaVeterans Affairs Medical Center05-22 [facility] Rutan HospitalWBC Auto (Bld) [#/Vol]Ordered By: Jorge L Cruz on 55-83-2112IMP (Bld) [#/Vol]Leukocytes [#/volume] in Blood by Automated count3.8-11.6FCleveland Clinic [facility] Lodi HospitalXR chest 2V*on 75-97-5121PZ chest 2V*[facility] [place] [address] [place] [address] XRay Report Signed Patient: Lashaun Joaquin MR#: [id number] : 1940 Acct:[id number] Age/Sex: 84 / F ADM Date: 02/12/25 Loc: ER Room: Type: [facility] ER Attending Dr: Copies to: Jorge [...] ABNORMALITY. Impression dictated by: Epifanio Lyon Jr., D.O.02/12/2025 8:16 AM Dictation Location: [place] [address] Transcribed By: [facility] 02/12/25 08 Dictated By: Epifanio Lyon Jr, DO 02/12/25 0816 Signed By: 02/12/25 0816T[facility] Physician GroupaPTT in Platelet poor plasma by Coagulation assayOrdered By: Jorge L Cruz on 83-03-0332bXEJ Coag (PPP) [Time]Activated partial thromboplastin time (aPTT) in platelet poor plasma by coagulation a25.1-36.5FCleveland Clinic Akron General Lodi HospitalComment on above:A hematocrit value greater than 55% may lead to inaccurate results in coagulation testing. Patientshaving hematocrit values >55% require a special collection tube for coagulation studies. Please contact the laboratory at [phone] for redraw instructions.US Thyroid glandon 16-54-9427[address] [address] Ultrasound Report Signed Patient: LASHAUN JOAQUIN MR#: [id number] : 1940 Acct:[id number] Age/Sex: 84 / F ADM Date: 02/10/25 Loc: US Attending Dr: Reyna Esparza M.D. Ordering Physician: Reyna Esparza M.D. Date of Service: 02/10/25 Procedure(s): US thyroid Accession Number(s): [id number] cc: Nathan Hathaway D.O.; Reyna Esparza M.D. The [address] [address] Patient Name: LASHAUN JOAQUIN MRN: [id number] date: 1940 Sex: F Assigned Patient Location: US Current Patient Location: US Accession/Order Number: [id number] Exam Date: 02/10/2025 11:24 Report Date: 02/10/2025 [...] Shelli Israel M.D.02/10/2025 11:33 AM Dictation Location: [place] [address] Electronically authenticated by: [id number] Y Date: 02/10/2025 11:33 Dictated By: Shelli Israel M.D. Signed By: 02/10/25 1136 DD/ 1133 TD/TT: Radar Mechanic:TBHRadiology, Radiologist, - 02/10/2025 [place] [address] Ultrasound Report Signed Patient: LASHAUN JOAQUIN MR#: [id number] : 1940 Acct:[id number] Age/Sex: 84 / F ADM Date: 02/10/25 Loc: US Attending Dr: Reyna Esparza M.D. Ordering Physician: Reyna Esparza M.D. Date of Service: 02/10/25 Procedure(s): US thyroid Accession Number(s): [id number] cc: Nathan Hathaway D.O.; Reyna Esparza M.D. The [place] [id number] Patient Name: LASHAUN JOAQUIN MRN: [id number] date: 1940 Sex: F Assigned Patient Location: US Current Patient Location: US Accession/Order Number: [id number] Exam Date: 02/10/2025 11:24 Report Date: 02/10/2025 [...] Shelli Israel M.D.02/10/2025 11:33 AM Dictation Location: [place] [address] Electronically authenticated by: [id number] Y Date: 02/10/2025 11:33 Dictated By: Shelli Israel M.D. Signed By: 02/10/25 1136 DD/ 1133 TD/TT: Radar Mechanic: PEREZ PatelRadiology Study observation (narrative)PEREZ PatelUS Thyroid glandOrdered By: Radiologist Radiology on 70-25-3365HISP [employer] Work Phone: Estimated glomerular filtration rate (GFR) non- Americanon 52-16-7897VMJ/1.73 sq M.predicted among non-blacks MDRD (S/P/Bld) [Vol rate/Area]Estimated glomerular filtration rate (GFR) non- Low>=60 mL/min/1.73m 2FCleveland Clinic [facility]odi HospitalLaboratory - Chemistry and Chemistry - challengeon 07-00-7664Recjwjw [Mass/Vol]8.9 mg/dL8.5-10.1 [facility] HospitalChloride [Moles/Vol]106 mmol/F37-802KtgpxovznMary Rutan HospitalCO2 [Moles/Vol]28.0 mmol/L21.0-32.0[facility] Medical CenterCreatinine [Mass/Vol]1.42 mg/dLHigh0.55-1.02Mary Rut[facility] HospitalGFR/1.73 sq M.predicted MDRD (S/P/Bld) [Vol rate/Area]43 mL/min/{1.73_m2}Low>=60 mL/min/1.73m 2FCleveland Clinic [facility] HospitalGlucose [Mass/Vol]116 mg/rTKfwi86-600ZaxmfeyjuMary Rutan HospitalPotassium [Moles/Vol]3.9 mmol/L3.5-5.1FWadsworth-Rittman Hospitalodium [Moles/Vol] 145 mmol/O530-554LjkbwpfuzMary Rutan HospitalUrea nitrogen [Mass/Vol]21.0 mg/dLHigh7.0-18.0[facility] HospitalUrea nitrogen/Creatinine [Mass ratio]14.8 mg/mgSelect Medical Specialty Hospital [facility] Cincinnati Northerum or plasma anion gap determinationon 50-99-2110Gsrrx gap [Moles/Vol]Serum or plasma anion gap determinationMary Rutan HospitalLaboratory - Chemistry and Chemistry - challengeon 22-59-5402Imdokzdli Ql (U)NegativeMary Rutan HospitalGlucose (U) [Mass/Vol]NegativeMary Rutan Hospital Ketones Ql (U)NegativeMary Rutan HospitalpH (U)5 [pH][facility] Northpecific gravity (U) [Rel density]1.000Mary [facility] HospitalUrobilinogen (U) [Mass/Vol]NegativeMary Rutan HospitalLaboratory - Specimen informationon 52-98-4740Fluyzxakfl (U)clearMary Rutan HospitalColor (U)yellowMary Rutan Hospital Laboratory - Urinalysison 42-05-9068Iidaafamm esterase Test strip Ql (U)Negative [facility] HospitalNitrite Ql (U)NegativeMary Rutan HospitalProtein Ql (U)0.2FCleveland Clinic [facility]odi HospitalNo Panel Informationon 80-85-4181Laizg Occult Blood++[facility] Estimated glomerular filtration rate (GFR) non- Americanon 12-18-2024 GFR/1.73 sq M.predicted among non-blacks MDRD (S/P/Bld) [Vol rate/Area]Estimated glomerular filtration rate (GFR) non- AmericanLow>=60 mL/min/1.73m 2 [facility] HospitalLaboratory - Chemistry and Chemistry - challengeon 83-91-0839Mfxwrqj [Mass/Vol]8.9 mg/dL8.5-10.1FC[facility] Clinic [facility] HospitalChloride [Moles/Vol]105 mmol/I57-247BjhlfzpjlMary Rutan HospitalCO2 [Moles/Vol]30.4 mmol/L21.0-32.0[facility] Creatinine [Mass/Vol]1.57 mg/dLHigh0.55-1.02[facility] Free T4 [Mass/Vol]0.90 ng/dL0.76-1.46Mary [facility] HospitalGFR/1.73 sq M.predicted MDRD (S/P/Bld) [Vol rate/Area]38 mL/min/{1.73_m2}Low>=60 mL/min/1.73m 2FCleveland Clinic [facility]odi HospitalGlucose [Mass/Vol]119 mg/dLHigh 74-106Mary [facility] HospitalPotassium [Moles/Vol]4.1 mmol/L3.5-5.1 [facility] Northodium [Moles/Vol]143 mmol/T404-369RrlqrpdnsMary Rutan HospitalTSH Qn2.650 m[IU]/L0.358-3.740Mary [facility]an HospitalUrea nitrogen [Mass/Vol]28.0 mg/dLHigh7.0-18.0[facility] HospitalUrea nitrogen/Creatinine [Mass ratio]17.8 mg/mgSelect Medical Specialty Hospital - Cincinnati Northerum or plasma anion gap determinationon 01-13-5170Thlfs gap [Moles/Vol] Serum or plasma anion gap determinationMary Rutan HospitalINR in Platelet poor plasma by Coagulation assayOrdered By: Nathan Hathaway on 11-17-2024 INR Coag (PPP) [Relative time]INR in Platelet poor plasma by Coagulation assay Mary Rutan HospitalComment on above:INR Therapeutic Range A) Pre- and Peroperative OAT started two weeks before surgery. NOT HIP SURGERY: 1.5 - 2.5 HIP SURGERY: 2 - 3B) Primary and secondary prevention of venous THROMBOSIS: 2 - 3C) Active venous thrombosis, pulmonary embolismand prevention of recurrent venous thrombosis: 2 - 3D) Prevention of arterial thromboembolismincluding patients with mechanical heart valves: 3 - 4.5Lon 11-17-2024 Specimen: [id number] Received: 11/17/24 Status: SERENITY Rojas Num: [id number] Spec Type: Cytology Subm Dr: Seth Ley DO Tissues: A FNA SLIDES PATH (FNA THYROID) Procedures: -, DIFF QWIK/3, PAPSTN/4 Age/ Patient Sex Location Account Attending Physician Lashaun Joaquin 84/F [id number] Nathan Hathaway DO SPEC NUM: [id number] RECD: 11/17/24 STATUS: SERENITY ROJAS NUM: [id number] JED: 11/17/24- [facility] DR: Seth Ley DO ENTERED: 11/17/[address] [facility] [address]: Nathan Hathaway DO SPEC TYPE: Cytology DEPT: CNG ENTERED BY: [id number] RECV BY: [id number] ORDERED: -, DIFF QWIK/3, PAPSTN/4 ORDERED: -, DIFF QWIK/3, PAPSTN/4 Pathological Diagnosis Thyroid nodule, US-guided FNA: Satisfactory for evaluation. Benign ([place] category I). Clinical Information Thyroid Nodule,adrenal nodule, [...] PM Specimen: [id number] Received: 11/17/24 Status: SERENITY Rojas Num: [id number] Spec Type: Cytology Subm Dr: Seth Ley DO Tissues: A FNA SLIDES PATH (FNA THYROID) Procedures: -, DIFF QWIK/3, PAPSTN/4 Patient: Lashaun Joaquin [id number] (Continued) Specimen: [id number] Received: 11/17/24 (Continued) Signed (signature on file) Lala Mast MD 11/18/24 0857 Specimen: [id number] Received: 11/17/24 Status: SERENITY Betsy Num: [id number] Spec Type: Cytology Subm Dr: Seth Ley DO Tissues: A FNA SLIDES PATH (FNA THYROID) Procedures: -, DIFF QAMELIAK/JOHN Hayden/4 Patient: Lashaun Joaquin [id number] (Continued) Specimen: [id number] Received: 11/17/24 (Continued) CPT Codes 02412, 21563 Specimen: [id number] Received: 11/17/24 Status: SERENITY Rojas Num: [id number] Spec Type: Cytology Subm Dr: Seth Ley DO Tissues: A FNA SLIDES PATH (FNA THYROID) Procedures: -, DIFF QWIK/JOHN Hayden/4 Patient: Lashaun Joaquin [id number] (Continued) Signed (signature on file) Lala Mast MD 11/18/24 0857 NormalMemorial Regional Hospital South Physician [facility] MadisonPartial Thromboplastin Timeon 01-97-4884bYUP Coag (Bld) [Time]28.9 nHqolfq71.1-36.5The [facility] Physician [facility] MadisonComment on above:Result Comment: A hematocrit value greater than 55% may lead to inaccurate results in coagulation testing. Patients having hematocrit values >55% require a special collection tube for coagulation studies. Please contact the laboratory at [phone] for redraw instructions. PERFORMED BY: [place] [address] PATHOLOGIST SULFUR CHLORIDE OPERATOR RAMEZ MONTES M.D.Performed By: #### PTT, PT #### [place] [address] USAPlatelet Counton 75-02-9254Hmwwstitg (Bld) [#/Vol]253 10*3/jNOepmmf153-822Dub [facility] Physician [facility] MadisonComment on above:Result Comment: PERFORMED BY: [place] [address] PATHOLOGIST SULFUR CHLORIDE OPERATOR RAMEZ MONTES M.D.Performed By: #### PLT #### [facility] [address] [place] [address] USAPlatelets Auto (Bld) [#/Vol]Ordered By: Nathan Hathaway on 00-01-3632Qrqziimtr (Bld) [#/Vol]Platelets [#/volume] in Blood by Automated cnsyr657-401UdwbgwjxuMary Rutan HospitalProthrombin Time INRon 11-17-2024 INR Coag (PPP) [Relative time]1.0 {INR}NormalThe [facility] Physician [facility] Comment on above:Result Comment: INR Therapeutic Range [...] - 4.5Performed By: #### PTT, PT #### [facility] [address] [place] [address] USAPT Coag (PPP) [Time]11.9 sNormal9.0-12.9The [facility] Physician GroupComment on above:Result Comment: A hematocrit value greater than 55% may lead to inaccurate results in coagulation testing. Patients having hematocrit values >55% require a special collection tube for coagulation studies. Please contact the laboratory at [phone] for redraw instructions.Performed By: #### PTT, PT #### [facility] [address] [place] [address] USAProthrombin time (PT)Ordered By: Nathan Hathaway on 40-91-5908CX Coag (PPP) [Time]Prothrombin time (PT)9.0-12.9[facility] Rut[facility] HospitalComment on above:A hematocrit value greater than 55% may lead to inaccurate results in coagulation testing. Patientshaving hematocrit values >55% require a special collection tube for coagulation studies. Please contact the laboratory at [phone] for redraw instructions.US needle aspirationon 56-33-4859PF needle aspirationFORT HAMILTON HOSPITAL [address] [address] [place] [address] Ultrasound Report Signed Patient: Lashaun Joaquin MR#: [id number] : 1940 Acct:[id number] Age/Sex: 84 / F ADM Date: 11/17/24 Loc: Room: Type: [facility] Attending Dr: Nathan Hathaway DO Ordering Provider: [...] Seth Ley M.D.11/17/2024 12:41 PM Dictation Location: [place] [address] Tech: Deja Ruel Transcribed By: LAURA 11/17/24 1241 Dictated By: Seth Ley DO 11/17/24 1159 Signed By: 11/17/24 1241T[facility] Physician GroupaPTT in Platelet poor plasma by Coagulation assayOrdered By: Nathan Hathaway on 42-72-3681wWGX Coag (PPP) [Time] Activated partial thromboplastin time (aPTT) in platelet poor plasma by coagulation a25.1-36.5FCleveland Clinic [facility] Lodi HospitalComment on above:A hematocrit value greater than 55% may lead to inaccurate results in coagulation testing. Patientshaving hematocrit values >55% require a special collection tube for coagulation studies. Please contact the laboratory at [phone] for redraw instructions.Estimated glomerular filtration rate (GFR) non- Americanon 71-77-5148QDY/1.73 sq M.predicted among non-blacks MDRD (S/P/Bld) [Vol rate/Area]Estimated glomerular filtration rate (GFR) non- Low>=60 mL/min/1.73m 2FCleveland Clinic [facility] HospitalLaboratory - Chemistry and Chemistry - challengeon 10-45-6004Cnxjfwt [Mass/Vol]8.6 mg/dL8.5-10.1 [facility] HospitalChloride [Moles/Vol]108 mmol/IUfxt26-243 [facility] HospitalCO2 [Moles/Vol]27.0 mmol/L21.0-32.0[facility] HospitalCreatinine [Mass/Vol]1.39 mg/dLHigh0.55-1.02[facility] HospitalFree T4 [Mass/Vol]0.80 ng/dL0.76-1.46[facility] HospitalGFR/1.73 sq M.predicted MDRD (S/P/Bld) [Vol rate/Area]44 mL/min/{1.73_m2}Low>=60 mL/min/1.73m 2FC[facility] Clinic [facility] HospitalGlucose [Mass/Vol]85 mg/tK01-503LotsfaoumMary Rutan HospitalPotassium [Moles/Vol] 4.5 mmol/L3.5-5.1FWadsworth-Rittman Hospitalodium [Moles/Vol]144 mmol/L 136-145Mary [facility] HospitalTSH Qn3.767 m[IU]/LHigh0.358-3.740 [facility] HospitalUrea nitrogen [Mass/Vol]20.0 mg/dLHigh7.0-18.0 [facility] HospitalUrea nitrogen/Creatinine [Mass ratio]14.4 mg/mg [facility] Northerum or plasma anion gap determinationon 33-84-6522Hdery gap [Moles/Vol]Serum or plasma anion gap determinationMary Rutan HospitalEstimated glomerular filtration rate (GFR) non- Americanon 00-41-8203LYS/1.73 sq M.predicted among non-blacks MDRD (S/P/Bld) [Vol rate/Area]39 mL/min/{1.73_m2}Low>=60[facility] Laboratory - Chemistry and Chemistry - challengeon 67-16-7900Stzgfvq [Mass/Vol] 8.8 mg/dL8.5-10.1FC[facility] Clinic [facility] Lodi HospitalChloride [Moles/Vol]106 mmol/L 98-107Mary [facility] HospitalCO2 [Moles/Vol]30.8 mmol/L21.0-32.0 [facility] HospitalCreatinine [Mass/Vol]1.30 mg/dLHigh0.55-1.02 [facility] HospitalGFR/1.73 sq M.predicted MDRD (S/P/Bld) [Vol rate/Area]48 mL/min/{1.73_m2}Low>=60[facility] HospitalGlucose [Mass/Vol]89 mg/pP11-009UleemludeMary Rutan HospitalPotassium [Moles/Vol] 4.3 mmol/L3.5-5.1FWadsworth-Rittman Hospitalodium [Moles/Vol]143 mmol/L 136-145Mary [facility] HospitalUrea nitrogen [Mass/Vol]24.0 mg/dLHigh 7.0-18.0[facility] HospitalUrea nitrogen/Creatinine [Mass ratio] 18.5 mg/mgSelect Medical Specialty Hospital - Cincinnati Northerum or plasma anion gap determinationon 88-52-4986Vwegi gap [Moles/Vol]10.5 mmol/[facility] Regional Medical CenterEstimated glomerular filtration rate (GFR) non- Americanon 73-86-7544XDG/1.73 sq M.predicted among non-blacks MDRD (S/P/Bld) [Vol rate/Area]37 mL/min/{1.73_m2}Low>=60[facility] HospitalLaboratory - Chemistry and Chemistry - challengeon 92-52-1457Bwaretb [Mass/Vol]8.5 mg/dL 8.5-10.1FC[facility] Clinic [facility] HospitalChloride [Moles/Vol]106 mmol/L98-107 [facility] HospitalCO2 [Moles/Vol]28.7 mmol/L21.0-32.0[facility] HospitalCreatinine [Mass/Vol]1.36 mg/dLHigh0.55-1.02[facility] HospitalGFR/1.73 sq M.predicted MDRD (S/P/Bld) [Vol rate/Area]45 mL/min/{1.73_m2}Low>=60[facility] HospitalGlucose [Mass/Vol]98 mg/dF13-831ByegbubrjMary Rutan HospitalPotassium [Moles/Vol]4.3 mmol/L 3.5-5.1FWadsworth-Rittman Hospitalodium [Moles/Vol]142 mmol/D158-809 [facility] HospitalUrea nitrogen [Mass/Vol]26.0 mg/dLHigh7.0-18.0 [facility] HospitalUrea nitrogen/Creatinine [Mass ratio]19.1 mg/mg [facility] Northerum or plasma anion gap determinationon 94-66-3041Pcyow gap [Moles/Vol]11.6 mmol/[facility] Regional Medical CenterNM Heart Perfusion W stress and W radionuclide [place] 92-73-0179Nrramh Lexiscan Myoview cardiac perfusion stress test. No evidence of ischemia or myocardial infarction by perfusion imaging. Normal left ventricular systolic function, ejection fraction 88%. When compared previous study changes are noted. Previous study showed anterior wall ischemia which was not present during the study. Signed by: Faustino Zuniga 03/12/2024 4:34 PM Dictation workstation: [id number] MMODALInterpreted By: Faustino Zuniga and Giannuzzi Michael STUDY: MYOCARDIAL PERFUSION STRESS TEST WITH LEXISCAN Performing facility: [facility], [address] [place] [address], [address], [place] [address] [facility] Provider: Holden Rosado RN, FEED INSPECTION SUPERVISOR PCP: Dr. Ksenia Hathaway Supervising provider: Anthony Perry DO, [facility] INDICATION: ASHD HISTORY: Gender: F; Age: 83 y/o ; Height: HT 165.1 cm cm; Weight: WT 88.905 kg kg. CAD; High Cholesterol; HTN; Fatigue; Quit smoking 44 years ago. Cardiac catheterization on 2022. PTCA on 2022. COMPARISON: Previous nuclear testing completed [id number] at [facility]. ACCESSION NUMBER(S): [id number] ORDERING CLINICIAN: HOLDEN ROSADO TECHNIQUE: ONE DAY [...] MMODALFaustino Zuniga MD - 03/12/2024 Interpreted By: Faustino Zuniga and Giannuzzi Michael STUDY: MYOCARDIAL PERFUSION STRESS TEST WITH LEXISCAN Performing facility: [facility], [address], [address], [place] [address] [facility] Provider: Holden Rosado RN, FEED INSPECTION SUPERVISOR PCP: Dr. Ksenia Hathaway Supervising provider: Anthony Perry DO, [facility] INDICATION: ASHD HISTORY: Gender: F; Age: 83 y/o ; Height: HT 165.1 cm cm; Weight: WT 88.905 kg kg. CAD; High Cholesterol; HTN; Fatigue; Quit smoking 44 years ago. Cardiac catheterization on 2022. PTCA on 2022. COMPARISON: Previous nuclear testing completed [id number] at [facility]. ACCESSION NUMBER(S): [id number] ORDERING CLINICIAN: HOLDEN ROSADO TECHNIQUE: ONE DAY [...] Faustino Zuniga 03/12/2024 4:34 PM Dictation workstation: [id number] [facility] Work Phone: Radiology Study observation (narrative)[facility] Work Phone: NM Heart Perfusion W stress and W radionuclide IV Ordered By: Faustino Zuniga on 29-60-6466TjldhqrezrRegency Hospital [facility] Work Phone: Calcium [Mass/volume] in Serum or PlasmaOrdered By: Holden Rosado on 34-60-8276Cjnhfoy [Mass/Vol]9.2 mg/dL8.6-10.3FC[facility] Lodi HospitalCarbon dioxide, total [Moles/volume] in Serum or PlasmaOrdered By: Holden Rosado on 18-63-0219MA6 [Moles/Vol]32.1 mmol/LHigh21.0-31.0[facility] HospitalChloride [Moles/volume] in Serum or PlasmaOrdered By: Holden Rosado on 19-12-3754Umjnywcr [Moles/Vol]104 mmol/N85-460XygfczdniMary Rutan HospitalCreatinine [Mass/volume] in Serum or PlasmaOrdered By: Holden Rosado on 93-08-3426Upihoyjiqc [Mass/Vol]1.36 mg/dLHigh0.60-1.20[facility] HospitalGlucose [Mass/volume] in Serum or PlasmaOrdered By: Holden Rosado on 27-36-0150Kztfywf [Mass/Vol]79 mg/gR06-609VzbxbvppsMary Rutan Hospital Comment on above:ADA recommended reference rangeRandom Glucose Reference Range is dependent on time and content of last meal. Glucose of more than 200 mg/dL in a nonstressed, ambulatory subject supports the diagnosisof Diabetes Mellitus.No Panel InformationOrdered By: Holden Rosado on 76-98-3992Jevetktbh GFR (CKD-EPI) 39.134 mL/MinMary Rutan HospitalPharmacy Creatinine Clearance (ChemN/[facility] DaytonPotassium [Moles/volume] in Serum or PlasmaOrdered By: Holden Rosado on 00-33-0426Bwyepbghe [Moles/Vol]5.2 mmol/LHigh 3.5-5.1FWadsworth-Rittman Hospitalerum or plasma anion gap determination Ordered By: Holden Rosado on 12-56-6039Kzbuj gap [Moles/Vol]10.1 mmol/L6.0-15.0 [facility] Northodium [Moles/volume] in Serum or PlasmaOrdered By: Holden Rosado on 07-77-7091Wljcbt [Moles/Vol]141 mmol/E928-378CszjdmkswMary Rutan HospitalUrea nitrogen [Mass/volume] in Serum or PlasmaOrdered By: Holden Rosado on 28-16-7533Bouc nitrogen [Mass/Vol]26 mg/dLHigh7-25[facility] HospitalBasophils Auto (Bld) [#/Vol]on 26-80-6382Ktdmxihok (Bld) [#/Vol]0.0 10 3/uL0.0-0.1FC[facility]odi HospitalBasophils/100 WBC Auto (Bld)on 27-05-3845Qsscosjsm/100 WBC (Bld)0.8 %0.2-2.0[facility] HospitalEosinophils/100 WBC Auto (Bld)on 58-56-8380Vslujkfekkk/100 WBC (Bld)2.8 % 0.9-7.0[facility] HospitalErythrocyte distribution width Auto (RBC) [Ratio]on 13-41-9984Rfrqsnphfsf distribution width (RBC) [Ratio]13.1 % 11.0-15.0[facility] HospitalEstimated glomerular filtration rate (GFR) non- Americanon 51-89-5334ABI/1.73 sq M.predicted among non-blacks MDRD (S/P/Bld) [Vol rate/Area]49 mL/min/{1.73_m2}>=60[facility] HospitalGlobulin Calc (S) [Mass/Vol]on 26-16-8426Pwwjgint (S) [Mass/Vol]2.7 g/dL [facility] HospitalHematocrit Auto (Bld) [Volume fraction]on 29-50-7277Vcueahpixt (Bld) [Volume fraction]29.2 %36.0-48.0[facility] HospitalHemoglobin [Mass/volume] in Bloodon 66-09-6102Rdxbsjttqq (Bld) [Mass/Vol]9.5 g/dL12.0-16.0[facility] HospitalLaboratory - Chemistry and Chemistry - challengeon 51-46-0714Jtpbiur [Mass/Vol]2.9 g/dL 3.4-5.0[facility] HospitalALP [Catalytic activity/Vol]44 U/L46-116 [facility] HospitalALT [Catalytic activity/Vol]13 U/L14-59 [facility] HospitalAST [Catalytic activity/Vol]14 U/L15-37 [facility] HospitalBilirubin [Mass/Vol]0.6 mg/dL0.2-1.0[facility] HospitalCalcium [Mass/Vol]8.9 mg/dL8.5-10.1FC[facility] HospitalChloride [Moles/Vol]107 mmol/A98-699VszuyqpegMary Rutan HospitalCO2 [Moles/Vol]27.9 mmol/L21.0-32.0[facility] Creatinine [Mass/Vol]1.08 mg/dL0.55-1.02[facility] GFR/1.73 sq M.predicted MDRD (S/P/Bld) [Vol rate/Area]59 mL/min/{1.73_m2}>=60 [facility] HospitalGlucose [Mass/Vol]83 mg/mX42-909JlepucyxsMary Rutan HospitalPotassium [Moles/Vol]3.8 mmol/L3.5-5.1FC[facility] HospitalProtein [Mass/Vol]5.6 g/dL6.4-8.2[facility] Sodium [Moles/Vol]141 mmol/R400-542VxssqvmudMary Rutan HospitalUrea nitrogen [Mass/Vol]18.0 mg/dL7.0-18.0[facility] HospitalUrea nitrogen/Creatinine [Mass ratio]16.7 mg/mgMary Rutan Hospital Laboratory - Hematology and Cell countson 39-64-3225Ckczmvfd granulocytes/100 WBC (Bld)0.2 %0.0-0.5FC[facility] HospitalLeukocytes [#/volume] corrected for nucleated erythrocytes in Blood by Automated counon 75-22-3408SEY corrected for nucl RBC Auto (Bld) [#/Vol]4.7 10 3/uL4.0-11.0[facility] HospitalLymphocytes Auto (Bld) [#/Vol]on 84-59-4948Pxmukrmgkga (Bld) [#/Vol]1.0 10 3/uL1.2-3.8[facility] HospitalLymphocytes/100 WBC Auto (Bld)on 34-41-1533Cmlltdcyxad/100 WBC (Bld)21.8 %20.5-60.0[facility] HospitalH Auto (RBC) [Entitic mass]on 24-23-9061MZU (RBC) [Entitic mass]29.2 pg26.7-34.0[facility] HospitalHC Auto (RBC) [Mass/Vol]on 86-84-6449UACF (RBC) [Mass/Vol]32.5 g/dL29.9-35.2FC[facility] HospitalMCV Auto (RBC) [Entitic vol]on 64-46-3745SOB (RBC) [Entitic vol] 89.8 fL81.0-99.0[facility] HospitalMonocytes Auto (Bld) [#/Vol]on 73-73-1305Lqyxrvdea (Bld) [#/Vol]0.7 10 3/uL0.3-0.8[facility] HospitalMonocytes/100 WBC Auto (Bld)on 28-38-0031Qjzxyltgr/100 WBC (Bld)14.2 % 1.7-12.0[facility] HospitalNeutrophils Auto (Bld) [#/Vol]on 13-68-4749Drviyctjfvq (Bld) [#/Vol]2.8 10 3/uL1.4-6.5FC[facility] HospitalNeutrophils/100 WBC Auto (Bld)on 27-98-4260Aunomttcofa/100 WBC (Bld)60.2 % 43.0-75.0[facility] HospitalNo Panel Informationon 02-20-2024 Eosinophils # (Auto)0.1 10 3/uL0.0-0.7FC[facility] HospitalImmature Granulocyte # (Auto)0.01 10 3/uL0.00-0.03[facility] Platelet mean volume Auto (Bld) [Entitic vol]on 62-26-4096Boqnzmgh mean volume (Bld) [Entitic vol]10.5 fL9.5-13.5FC[facility] HospitalPlatelets Auto (Bld) [#/Vol]on 63-10-9163Zwibssuuv (Bld) [#/Vol]250 10 3/qU828-792 [facility] HospitalRBC Auto (Bld) [#/Vol]on 56-72-9509UHU (Bld) [#/Vol]3.25 10 6/uL4.20-5.40[facility] Northerum or plasma albumin/globulin mass ratioon 46-85-1620Rjplrpj/Globulin [Mass ratio]1.1 {ratio} [facility] Northerum or plasma anion gap determinationon 67-12-6144Wzzyj gap [Moles/Vol]9.9 mmol/LFCleveland Clinic Akron General Lodi Hospital Basophils Auto (Bld) [#/Vol]on 82-99-2233Xirpqsoyw (Bld) [#/Vol]0.0 10 3/uL 0.0-0.1FC[facility] HospitalBasophils/100 WBC Auto (Bld)on 15-11-9895Hggrvodat/100 WBC (Bld)0.8 %0.2-2.0[facility] Cholesterol in LDL Calc [Mass/Vol]on 91-61-7980Exjvarxrzzw in LDL [Mass/Vol] 100.4 mg/dLMary Rutan HospitalComment on above:<100 mg/dl KXJULZM392-687 mg/dl NEAR OR ABOVE QLFHKKA586-410 mg/dl BORDERLINE JYYB293-556 mg/dl HIGH>190 mg/dl VERY HIGHCholesterol in VLDL Calc [Mass/Vol]on 02-19-2024 Cholesterol in VLDL [Mass/Vol]15.6 mg/dLMary Rutan Hospital Eosinophils/100 WBC Auto (Bld)on 87-40-7255Hrvcdgmoepo/100 WBC (Bld)1.9 %0.9-7.0 [facility] HospitalErythrocyte distribution width Auto (RBC) [Ratio]on 95-62-0879Xxmefgzrvas distribution width (RBC) [Ratio]13.2 %11.0-15.0 [facility] HospitalEstimated glomerular filtration rate (GFR) non- Americanon 46-51-9821SLM/1.73 sq M.predicted among non-blacks MDRD (S/P/Bld) [Vol rate/Area]44 mL/min/{1.73_m2}>=60[facility] HospitalGlobulin Calc (S) [Mass/Vol]on 60-49-1231Algchhcm (S) [Mass/Vol]2.8 g/dL [facility] HospitalHematocrit Auto (Bld) [Volume fraction]on 84-73-8070Yfwkzxngls (Bld) [Volume fraction]31.2 %36.0-48.0[facility] HospitalHemoglobin [Mass/volume] in Bloodon 67-27-1567Dpxwmpxque (Bld) [Mass/Vol]10.0 g/dL12.0-16.0[facility] HospitalLaboratory - Chemistry and Chemistry - challengeon 27-75-9316Pankhai [Mass/Vol]3.2 g/dL 3.4-5.0[facility] HospitalALP [Catalytic activity/Vol]49 U/L46-116 [facility] HospitalALT [Catalytic activity/Vol]15 U/L14-59 [facility] HospitalAST [Catalytic activity/Vol]15 U/L15-37 [facility] HospitalBilirubin [Mass/Vol]0.5 mg/dL0.2-1.0[facility] HospitalCalcium [Mass/Vol]9.4 mg/dL8.5-10.1FC[facility] HospitalChloride [Moles/Vol]108 mmol/U53-349UrjkflnfwMary Rutan HospitalCholesterol [Mass/Vol]158 mg/dL<=200[facility] Cholesterol in HDL [Mass/Vol]42 mg/xF51-75CprlmvqlcMary Rutan Hospital Comment on above:> or =60 mg/dl - LOW CARDIOVASCULAR RISK<40 mg/dl - HIGH CARDIOVASCULAR RISKCO2 [Moles/Vol]28.7 mmol/L21.0-32.0[facility] HospitalCreatinine [Mass/Vol]1.18 mg/dL0.55-1.02[facility] GFR/1.73 sq M.predicted MDRD (S/P/Bld) [Vol rate/Area]53 mL/min/{1.73_m2}>=60 [facility] HospitalGlucose [Mass/Vol]93 mg/kN57-562GblfzoigoMary Rutan HospitalPotassium [Moles/Vol]4.0 mmol/L3.5-5.1[facility] HospitalProtein [Mass/Vol]6.0 g/dL6.4-8.2[facility] Sodium [Moles/Vol]145 mmol/Q866-504XkyrlcimkMary Rutan HospitalTriglyceride [Mass/Vol]78 mg/dL<=150[facility] HospitalTSH Qn4.696 m[IU]/L 0.358-3.740[facility] HospitalUrea nitrogen [Mass/Vol]20.0 mg/dL 7.0-18.0[facility] HospitalUrea nitrogen/Creatinine [Mass ratio] 16.9 mg/mgMary Rutan HospitalLaboratory - Hematology and Cell countson 87-95-5865Lefsdseb granulocytes/100 WBC (Bld)0.6 %0.0-0.5FC[facility] HospitalLeukocytes [#/volume] corrected for nucleated erythrocytes in Blood by Automated counon 07-86-4064MOU corrected for nucl RBC Auto (Bld) [#/Vol]5.3 10 3/uL4.0-11.0[facility] Lymphocytes Auto (Bld) [#/Vol]on 94-41-1426Qbzfzykpodu (Bld) [#/Vol]1.1 10 3/uL 1.2-3.8[facility] HospitalLymphocytes/100 WBC Auto (Bld)on 57-70-6912Ekyozoejjtm/100 WBC (Bld)21.3 %20.5-60.0[facility] HospitalMCH Auto (RBC) [Entitic mass]on 68-22-3860PDY (RBC) [Entitic mass]29.6 pg 26.7-34.0[facility] HospitalMCHC Auto (RBC) [Mass/Vol]on 29-07-5260KLXE (RBC) [Mass/Vol]32.1 g/dL29.9-35.2FC[facility] HospitalMCV Auto (RBC) [Entitic vol]on 08-70-9644WFS (RBC) [Entitic vol]92.3 fL 81.0-99.0[facility] HospitalMonocytes Auto (Bld) [#/Vol]on 90-03-0937Nasktsmzv (Bld) [#/Vol]0.6 10 3/uL0.3-0.8[facility] HospitalMonocytes/100 WBC Auto (Bld)on 04-69-2389Twzouuxwk/100 WBC (Bld)11.1 % 1.7-12.0[facility] HospitalNeutrophils Auto (Bld) [#/Vol]on 05-73-0656Yfaszxumztm (Bld) [#/Vol]3.4 10 3/uL1.4-6.5FC[facility] HospitalNeutrophils/100 WBC Auto (Bld)on 41-29-1932Kbjelltrmfj/100 WBC (Bld)64.3 % 43.0-75.0[facility] HospitalNo Panel Informationon 02-19-2024 Eosinophils # (Auto)0.1 10 3/uL0.0-0.7FC[facility] HospitalImmature Granulocyte # (Auto)0.03 10 3/uL0.00-0.03[facility] Platelet mean volume Auto (Bld) [Entitic vol]on 72-92-4466Hhhiazae mean volume (Bld) [Entitic vol]10.4 fL9.5-13.5FC[facility] HospitalPlatelets Auto (Bld) [#/Vol]on 22-34-1078Cwdgcsysf (Bld) [#/Vol]262 10 3/uA065-723 [facility] HospitalRBC Auto (Bld) [#/Vol]on 07-60-9792QOL (Bld) [#/Vol]3.38 10 6/uL4.20-5.40[facility] Northerum or plasma albumin/globulin mass ratioon 47-22-7933Jwxcnnt/Globulin [Mass ratio]1.1 {ratio} [facility] Northerum or plasma anion gap determinationon 12-53-5816Cedpo gap [Moles/Vol]12.3 mmol/LFWadsworth-Rittman Hospitalerum or plasma total cholesterol/high density lipoprotein (HDL) cholesterol mass rat on 12-23-5584Qtftemmhasz.total/Cholesterol in HDL [Mass ratio]3.8 {ratio} [facility] HospitalComment on above:3.3 - 4.4 LOW RISK4.4 - 7.1 AVERAGE RISK7.1 - 11.0 MODERATE RISK>11.0 HIGH RISKBasophils Auto (Bld) [#/Vol] on 68-80-5886Iwzqqtxzb (Bld) [#/Vol]0.0 10 3/uL0.0-0.1FC[facility] HospitalBasophils/100 WBC Auto (Bld)on 78-93-7215Soulytlex/100 WBC (Bld)0.4 % 0.2-2.0[facility] HospitalEosinophils/100 WBC Auto (Bld)on 98-44-0163Jzsikxnxxeq/100 WBC (Bld)1.2 %0.9-7.0[facility] Erythrocyte distribution width Auto (RBC) [Ratio]on 85-03-4157Slhvfybdohx distribution width (RBC) [Ratio]13.2 %11.0-15.0[facility] Estimated glomerular filtration rate (GFR) non- Americanon 02-18-2024 GFR/1.73 sq M.predicted among non-blacks MDRD (S/P/Bld) [Vol rate/Area]34 mL/min/{1.73_m2}>=60[facility] HospitalHematocrit Auto (Bld) [Volume fraction]on 82-79-4443Kwdlswttos (Bld) [Volume fraction]31.7 %36.0-48.0 [facility] HospitalHemoglobin [Mass/volume] in Bloodon 02-18-2024 Hemoglobin (Bld) [Mass/Vol]10.3 g/dL12.0-16.0[facility] Laboratory - Chemistry and Chemistry - challengeon 78-36-8140Rwynoseme [Mass/Vol]2.3 mg/dL1.8-2.4FC[facility] HospitalNatriuretic peptide B (Bld) [Mass/Vol]800.0 pg/mL<=1800.0[facility] HospitalCalcium [Mass/Vol]9.0 mg/dL8.5-10.1FC[facility] HospitalChloride [Moles/Vol] 106 mmol/G25-066GmpzftrpfMary Rutan HospitalCO2 [Moles/Vol]30.4 mmol/L 21.0-32.0[facility] HospitalCreatinine [Mass/Vol]1.46 mg/dL 0.55-1.02[facility] HospitalGFR/1.73 sq M.predicted MDRD (S/P/Bld) [Vol rate/Area]42 mL/min/{1.73_m2}>=60[facility] HospitalGlucose [Mass/Vol]102 mg/wA69-682DjagdwgexMary Rutan HospitalPotassium [Moles/Vol] 4.1 mmol/L3.5-5.1FWadsworth-Rittman Hospitalodium [Moles/Vol]144 mmol/L 136-145[facility] HospitalUrea nitrogen [Mass/Vol]21.0 mg/dL 7.0-18.0[facility] HospitalUrea nitrogen/Creatinine [Mass ratio] 14.4 mg/mgMary Rutan HospitalLaboratory - Hematology and Cell countson 84-40-3184Tkysgjdx granulocytes/100 WBC (Bld)0.7 %0.0-0.5FC[facility] HospitalLeukocytes [#/volume] corrected for nucleated erythrocytes in Blood by Automated counon 34-11-3112OXW corrected for nucl RBC Auto (Bld) [#/Vol]6.8 10 3/uL4.0-11.0[facility] Lymphocytes Auto (Bld) [#/Vol]on 61-73-0506Picibspqtub (Bld) [#/Vol]0.8 10 3/uL 1.2-3.8[facility] HospitalLymphocytes/100 WBC Auto (Bld)on 51-37-2267Flegpepzwsg/100 WBC (Bld)11.2 %20.5-60.0[facility] HospitalH Auto (RBC) [Entitic mass]on 96-70-7079YWO (RBC) [Entitic mass]29.3 pg 26.7-34.0[facility] HospitalMCHC Auto (RBC) [Mass/Vol]on 35-54-3780IPQH (RBC) [Mass/Vol]32.5 g/dL29.9-35.2FC[facility] HospitalMCV Auto (RBC) [Entitic vol]on 33-47-9129QIY (RBC) [Entitic vol]90.1 fL 81.0-99.0[facility] HospitalMonocytes Auto (Bld) [#/Vol]on 67-33-1915Igqarldmp (Bld) [#/Vol]0.6 10 3/uL0.3-0.8[facility] HospitalMonocytes/100 WBC Auto (Bld)on 35-85-6608Utlhhomxt/100 WBC (Bld)9.5 % 1.7-12.0[facility] HospitalNeutrophils Auto (Bld) [#/Vol]on 94-01-2203Glcqmmaaejk (Bld) [#/Vol]5.2 10 3/uL1.4-6.5FC[facility] HospitalNeutrophils/100 WBC Auto (Bld)on 77-62-2925Xeaphdajpbk/100 WBC (Bld)77.0 % 43.0-75.0[facility] HospitalNo Panel Informationon 02-18-2024 Troponin I High Iggadvmdica48.1 pg/mL4.0-51.3FC[facility] Comment on above:CUT-OFF POINTS HAVE BEEN ESTABLISHED [...] AND CLINICAL INFORMATION.Eosinophils # (Auto) 0.1 10 3/uL0.0-0.7FC[facility] HospitalImmature Granulocyte # (Auto) 0.05 10 3/uL0.00-0.03[facility] HospitalPlatelet mean volume Auto (Bld) [Entitic vol]on 38-48-1884Uxsbtlql mean volume (Bld) [Entitic vol]10.1 fL 9.5-13.5FC[facility] HospitalPlatelets Auto (Bld) [#/Vol]on 84-55-0348Tbrrilumy (Bld) [#/Vol]255 10 3/qT079-088BjzztxxveMary Rutan HospitalRBC Auto (Bld) [#/Vol]on 28-72-8240TBP (Bld) [#/Vol]3.52 10 6/uL4.20-5.40 [facility] Northerum or plasma anion gap determinationon 77-54-7110Tlznw gap [Moles/Vol]11.7 mmol/LFCleveland Clinic Akron General [facility]odi Hospital Basophils Auto (Bld) [#/Vol]on 92-42-3807Ntihhrebj (Bld) [#/Vol]0.1 10 3/uL 0.0-0.1FC[facility] HospitalBasophils/100 WBC Auto (Bld)on 41-88-3449Omcozqmqb/100 WBC (Bld)1.1 %0.2-2.0[facility] Cholesterol in LDL Calc [Mass/Vol]on 99-46-7593Vjihrumbaur in LDL [Mass/Vol] 113.6 mg/dLMary Rutan HospitalComment on above:<100 mg/dl NQKJIPV920-765 mg/dl NEAR OR ABOVE GQQBFEJ450-947 mg/dl BORDERLINE MBXC328-638 mg/dl HIGH>190 mg/dl VERY HIGHCholesterol in VLDL Calc [Mass/Vol]on 02-02-2024 Cholesterol in VLDL [Mass/Vol]10.4 mg/dLMary Rutan Hospital Eosinophils/100 WBC Auto (Bld)on 54-10-9595Jjrzyvqlygt/100 WBC (Bld)2.3 %0.9-7.0 [facility] HospitalErythrocyte distribution width Auto (RBC) [Ratio]on 13-98-2416Iuyuitaopqt distribution width (RBC) [Ratio]13.1 %11.0-15.0 [facility] HospitalEstimated glomerular filtration rate (GFR) non- Americanon 49-72-5705QPJ/1.73 sq M.predicted among non-blacks MDRD (S/P/Bld) [Vol rate/Area]34 mL/min/{1.73_m2}>=60[facility] HospitalGlobulin Calc (S) [Mass/Vol]on 24-95-0630Reqttmpb (S) [Mass/Vol]3.0 g/dL [facility] HospitalHematocrit Auto (Bld) [Volume fraction]on 36-17-6768Lqqtlpukwi (Bld) [Volume fraction]34.7 %36.0-48.0[facility] HospitalHemoglobin [Mass/volume] in Bloodon 82-24-3326Umainrubnp (Bld) [Mass/Vol]10.9 g/dL12.0-16.0[facility] HospitalLaboratory - Chemistry and Chemistry - challengeon 35-71-6573Dkxqnwa [Mass/Vol]3.4 g/dL 3.4-5.0[facility] HospitalALP [Catalytic activity/Vol]52 U/L46-116 [facility] HospitalALT [Catalytic activity/Vol]13 U/L14-59 [facility] HospitalAST [Catalytic activity/Vol]14 U/L15-37 [facility] HospitalBilirubin [Mass/Vol]0.3 mg/dL0.2-1.0[facility] HospitalCalcium [Mass/Vol]9.3 mg/dL8.5-10.1FC[facility] HospitalChloride [Moles/Vol]109 mmol/F27-889RvglpgtevMary Rutan HospitalCholesterol [Mass/Vol]169 mg/dL<=200[facility] Cholesterol in HDL [Mass/Vol]45 mg/jO72-27RpnkkdwteMary Rutan Hospital Comment on above:> or =60 mg/dl - LOW CARDIOVASCULAR RISK<40 mg/dl - HIGH CARDIOVASCULAR RISKCO2 [Moles/Vol]29.8 mmol/L21.0-32.0[facility] HospitalCreatinine [Mass/Vol]1.47 mg/dL0.55-1.02[facility] GFR/1.73 sq M.predicted MDRD (S/P/Bld) [Vol rate/Area]41 mL/min/{1.73_m2}>=60 [facility] HospitalGlucose [Mass/Vol]104 mg/rO51-895XiswumlhoMary Rutan HospitalPotassium [Moles/Vol]4.9 mmol/L3.5-5.1[facility] HospitalProtein [Mass/Vol]6.4 g/dL6.4-8.2[facility] Sodium [Moles/Vol]147 mmol/I202-051YerkmsraeMary Rutan HospitalTriglyceride [Mass/Vol]52 mg/dL<=150[facility] HospitalTS Qn3.613 m[IU]/L 0.358-3.740[facility] HospitalUrea nitrogen [Mass/Vol]24.0 mg/dL 7.0-18.0[facility] HospitalUrea nitrogen/Creatinine [Mass ratio] 16.3 mg/mgMary Rutan HospitalLaboratory - Hematology and Cell countson 50-11-5495Ncbuvutv granulocytes/100 WBC (Bld)0.4 %0.0-0.5FC[facility] HospitalLeukocytes [#/volume] corrected for nucleated erythrocytes in Blood by Automated counon 31-63-3461ZZN corrected for nucl RBC Auto (Bld) [#/Vol]5.6 10 3/uL4.0-11.0[facility] Lymphocytes Auto (Bld) [#/Vol]on 58-93-7324Rfwteijynpt (Bld) [#/Vol]1.1 10 3/uL 1.2-3.8[facility] HospitalLymphocytes/100 WBC Auto (Bld)on 73-39-4649Aeqfjfsgchs/100 WBC (Bld)20.2 %20.5-60.0[facility] Auto (RBC) [Entitic mass]on 26-84-6747MYT (RBC) [Entitic mass]29.8 pg 26.7-34.0[facility] Auto (RBC) [Mass/Vol]on 37-02-1355PAKV (RBC) [Mass/Vol]31.4 g/dL29.9-35.2[facility] HospitalMCV Auto (RBC) [Entitic vol]on 97-95-0903YRV (RBC) [Entitic vol]94.8 fL 81.0-99.0[facility] HospitalMonocytes Auto (Bld) [#/Vol]on 84-61-3180Hgzvfwfxe (Bld) [#/Vol]0.7 10 3/uL0.3-0.8[facility] HospitalMonocytes/100 WBC Auto (Bld)on 42-15-5416Xuuzutzlb/100 WBC (Bld)11.7 % 1.7-12.0[facility] HospitalNeutrophils Auto (Bld) [#/Vol]on 37-22-1600Dhtistwqkrx (Bld) [#/Vol]3.6 10 3/uL1.4-6.5[facility] HospitalNeutrophils/100 WBC Auto (Bld)on 57-35-3171Uerrqahgula/100 WBC (Bld)64.3 % 43.0-75.0[facility] HospitalNo Panel Informationon 02-02-2024 Eosinophils # (Auto)0.1 10 3/uL0.0-0.7[facility] HospitalImmature Granulocyte # (Auto)0.02 10 3/uL0.00-0.03[facility] Platelet mean volume Auto (Bld) [Entitic vol]on 71-13-8361Edswxezv mean volume (Bld) [Entitic vol]10.6 fL9.5-13.5[facility] HospitalPlatelets Auto (Bld) [#/Vol]on 97-58-2833Nxgjepxcl (Bld) [#/Vol]253 10 3/oX838-954 [facility] HospitalRBC Auto (Bld) [#/Vol]on 22-70-4002GLR (Bld) [#/Vol]3.66 10 6/uL4.20-5.40[facility] Northerum or plasma albumin/globulin mass ratioon 99-02-9621Dgvncls/Globulin [Mass ratio]1.1 {ratio} [facility] Northerum or plasma anion gap determinationon 52-81-9128Enaza gap [Moles/Vol]13.1 mmol/LFWadsworth-Rittman Hospitalerum or plasma total cholesterol/high density lipoprotein (HDL) cholesterol mass rat on 42-49-8938Vxremdjrmye.total/Cholesterol in HDL [Mass ratio]3.8 {ratio} [facility] HospitalComment on above:3.3 - 4.4 LOW RISK4.4 - 7.1 AVERAGE RISK7.1 - 11.0 MODERATE RISK>11.0 HIGH RISKUA RANDOM W/MICROSCOPICon 86-94-1853Rkqyeow (U)CLEARCLEARIncisive Surgical Propertybase Other Color (U)DK YELLOWYELLOWSentinel Propertybase Other Ketones Ql (U)NegativeNEGATIVE mg/dLSentinel Propertybase Other Leukocyte esterase Test strip Ql (U)NegativeNEGATIVE [employer] Other pH (U)6.5 [pH]5.0-9.0[employer] Other ua RANDOM W/MICROSCOPIC0-2 #/HPFAbnormalNONE SEEN #/HPFSentinel Propertybase Other ua RANDOM W/MICROSCOPIC5-10 #/HPFAbnormal0-2 #/HPF [employer] Other ua RANDOM W/MICROSCOPICsee noteSentinel Propertybase Other ua RANDOM W/MICROSCOPIC1.0101.005-1.025[employer] Other ua RANDOM W/MICROSCOPICNegativeNEGATIVEKetto Other ua RANDOM W/MICROSCOPICLARGEAbnormFactory LogicNEGGraphSQL Property[employer] Other ua RANDOM W/MICROSCOPICPositiveAbGhz TechnologyrmFactory LogicNEGMustard Tree InstrumentsIncisive Surgical Propertybase Other UA RANDOM W/MICROSCOPIC1.0 EU/dL0.2-1.0 EU/dLNofitzgibbon hospital Propertybase Other UA RANDOM W/MICROSCOPICTRACE #/HPFAbnormalNONE SEEN #/HPFSentinel Property[employer] Other ua RANDOM W/MICROSCOPICNONE SEENNONE SEENCapital Medical Center Feuerlabs Other ua RANDOM W/MICROSCOPICRARE #/LPFNONE/RARE #/LPFCapital Medical Center Feuerlabs Other ua RANDOM W/MICROSCOPICNone Seen #/HPFNone Seen #/HPF [facility] [employer] Other ua RANDOM W/MICROSCOPICNONE SEEN #/LPFNONE SEEN #/LPF [facility] [employer] Other Urinalysis - DIPSTICKon 88-76-6018Nyffgsdaeo (U)clear [employer] Other Bilirubin Ql (U)NegativeSentinel Propertybase Other Color (U)light yellowSentinel Propertybase Other Glucose Ql (U)NegativeSentinel Propertybase Other Hemoglobin Ql (U)+++Sentinel [employer] Other Ketones Ql (U)NegativeSentinel Propertybase Other Leukocyte esterase Test strip Ql (U)NegativeSentinel Propertybase Other Nitrite Ql (U)NegativeSentinel Propertybase Other pH (U)0.2 [pH]Ketto Other Protein Ql (U)traceNofitzgibbon hospital Propertybase Other Specific gravity (U) [Rel density]1.005Sent[employer] Other Urobilinogen (U) [Mass/Vol]off chartSentinel Propertybase Other Urinalysis - DIPSTICKNort Propertybase Other ESR Westergren method (Bld) [Velocity]on 17-33-2513CNS (Bld) [Velocity]119 mm/hHigh0 - 20 mm/hrNationwide Children'S HospitalFERRITIN BLDon 76-83-5714Qdtafckq [Mass/Vol]160.0 ng/mL14.7 - 205.1 ng/mLCleveland Rainy Lake Medical CenterIron and Iron binding capacity panelon 03-61-6275Fkyd [Mass/Vol]45 ug/dL41 - 186 ug/dLNationwide Children'S HospitalIron binding capacity [Mass/Vol]252 ug/dL232 - 386 ug/dL [facility] HospitalIron/TIBC [Molar ratio]17.9 %15.0 - 57.0 %[facility] metabolic 2000 panelon 22-63-0762Ugbio gap [Moles/Vol]10 mmol/L9 - 18 mmol/L [facility] HospitalCalcium [Mass/Vol]9.2 mg/dL8.5 - 10.2 mg/dLNationwide Children'S Hospital Chloride [Moles/Vol]106 mmol/LHigh97 - 105 mmol/LCleveland ClinicCO2 [Moles/Vol] 27 mmol/L22 - 30 mmol/LCleveland Rainy Lake Medical CenterCreatinine [Mass/Vol]1.09 mg/dLHigh0.58 - 0.96 mg/dLNationwide Children'S HospitalEstimated Glomerular Filtration Rate51 mL/min/1.73m Low>=60 mL/min/1.73mCleveland Rainy Lake Medical CenterGlucose [Mass/Vol]116 mg/tNVxuc27 - 99 mg/dL [facility] HospitalPotassium [Moles/Vol]4.3 mmol/L3.7 - 5.1 mmol/LCleveland [facility] Sodium [Moles/Vol]143 mmol/L136 - 144 mmol/LCleveland Rainy Lake Medical CenterUrea nitrogen [Mass/Vol]19 mg/dL7 - 21 mg/dLDiley Ridge Medical Center W Auto Differential panel (Bld)on 66-45-8637Izznkytim (Bld) [#/Vol]0.04 10*3/uL<0.11 k/uLNationwide Children'S Hospital Basophils/100 WBC (Bld)0.8 %[facility] ClinicDifferential cell count method Nom (Bld)AutoCleveland ClinicEosinophils (Bld) [#/Vol]0.14 10*3/uL<0.46 k/uL [facility] HospitalEosinophils/100 WBC (Bld)2.9 %[facility]'S HospitalErythrocyte distribution width (RBC) [Ratio]13.6 %11.5 - 15.0 %[facility]'S HospitalHematocrit (Bld) [Volume fraction]28.8 %Low36.0 - 46.0 %[facility]S HospitalHemoglobin (Bld) [Mass/Vol]9.2 g/dLLow11.5 - 15.5 g/dLNationwide Children'S HospitalImmature granulocytes (Bld) [#/Vol]<0.10 k/uLNationwide Children'S HospitalImmature granulocytes/100 WBC (Bld)0.4 % [facility]S HospitalLymphocytes (Bld) [#/Vol]0.83 10*3/uLLow1.00 - 4.00 k/uL [facility] HospitalLymphocytes/100 WBC (Bld)17.4 %[facility] CenterH (RBC) [Entitic mass]29.6 pg26.0 - 34.0 pgClevelPhillips Eye InstituteHC (RBC) [Mass/Vol]31.9 g/dL30.5 - 36.0 g/dLAdams County Regional Medical CenterV (RBC) [Entitic vol]92.6 fL80.0 - 100.0 fLCleveland ClinicMonocytes (Bld) [#/Vol]0.40 10*3/uL<0.87 k/uLNationwide Children'S Hospital Monocytes/100 WBC (Bld)8.4 %[facility]S HospitalNeutrophils (Bld) [#/Vol]3.35 10*3/uL1.45 - 7.50 k/uLNationwide Children'S HospitalNeutrophils/100 WBC (Bld)70.1 %[facility] HospitalNucleated RBC (Bld) [#/Vol]<0.01 k/uLNationwide Children'S HospitalNucleated RBC/100 WBC (Bld) [Ratio]0.0 /100 WBCNationwide Children'S HospitalPlatelet mean volume (Bld) [Entitic vol]10.2 fL9.0 - 12.7 fLCleveland ClinicPlatelets (Bld) [#/Vol]274 10*3/uL150 - 400 k/uLNationwide Children'S HospitalRBC (Bld) [#/Vol]3.11 10*6/uLLow3.90 - 5.20 m/uL [facility] HospitalWBC (Bld) [#/Vol]4.78 10*3/uL3.70 - 11.00 k/uLDevils Elbow Clinic RETIC COUNTon 38-73-4172Coajseburglma (Bld) [#/Vol]0.91288 10*3/uL0.018 - 0.100 M/uLNationwide Children'S HospitalReticulocytes (Bld) [#/Vol]on 16-59-5923Johugdbqbbrvv/100 RBC (Bld)2.0 %0.4 - 2.0 %[facility]S HospitalBasophils Auto (Bld) [#/Vol]Ordered By: Lj Ryan on 55-64-4514Zlnklxqjf (Bld) [#/Vol]0.0 10*3/uL0.0-0.2FCleveland Clinic [facility] HospitalBasophils/100 WBC Auto (Bld)Ordered By: Lj Ryan on 79-91-9660Cvjjmhrpo/100 WBC (Bld)0.7 %.[facility] HospitalCalcium [Mass/volume] in Serum or PlasmaOrdered By: Lj Ryan on 93-15-2455Eucnhkz [Mass/Vol]8.9 mg/dL8.6-10.3FCleveland Clinic [facility] HospitalCarbon dioxide, total [Moles/volume] in Serum or PlasmaOrdered By: Lj Ryan on 62-23-0747AX9 [Moles/Vol]30.5 mmol/L21.0-31.0[facility] HospitalChloride [Moles/volume] in Serum or PlasmaOrdered By: Lj Ryan on 73-87-3276Ykyxbwck [Moles/Vol]103 mmol/S78-387ZjvzvbrjyMary Rutan HospitalCreatinine [Mass/volume] in Serum or PlasmaOrdered By: Lj Ryan on 02-31-3437Slqkncuzcv [Mass/Vol]1.37 mg/dL0.60-1.20[facility] HospitalEosinophils Auto (Bld) [#/Vol]Ordered By: Lj Ryan on 65-57-9931Phzmvxepxqe (Bld) [#/Vol]0.1 10*3/uL0.0-0.45[facility] HospitalEosinophils/100 WBC Auto (Bld) Ordered By: Lj Ryan on 40-98-0105Oqcxyupcshd/100 WBC (Bld)1.9 %.[facility] HospitalErythrocyte distribution width Auto (RBC) [Ratio]Ordered By: Lj Ryan on 65-45-0249Bjflmlcnylq distribution width (RBC) [Ratio]14.1 % 11.9-15.3FCleveland Clinic [facility] HospitalGlucose [Mass/volume] in Serum or PlasmaOrdered By: Lj Ryan on 97-39-5511Qauquak [Mass/Vol]94 mg/dS70-358 [facility] HospitalComment on above:ADA recommended reference rangeRandom Glucose Reference Range is dependent on time and content of last meal. Glucose of more than 200 mg/dL in a nonstressed, ambulatory subject supports the diagnosisof Diabetes Mellitus.Hematocrit Auto (Bld) [Volume fraction]Ordered By: Lj Ryan on 55-84-2847Zvsbhxhukf (Bld) [Volume fraction]28.2 %34.0-46.4FCleveland Clinic [facility] HospitalHemoglobin [Mass/volume] in BloodOrdered By: Lj Ryan on 15-10-9928Ursfuppibs (Bld) [Mass/Vol]9.7 g/dL11.8-15.4FCleveland Clinic [facility] HospitalLeukocytes [#/volume] corrected for nucleated erythrocytes in Blood by Automated coun Ordered By: Lj Ryan on 04-42-5444CWE corrected for nucl RBC Auto (Bld) [#/Vol]6.0 10*3/uL3.8-11.6FCleveland Clinic [facility] HospitalLymphocytes Auto (Bld) [#/Vol]Ordered By: Lj Ryan on 83-46-8495Fubgklooirw (Bld) [#/Vol]0.9 10*3/uL1.00-4.8[facility] HospitalLymphocytes/100 WBC Auto (Bld) Ordered By: Lj Ryan on 00-66-7391Pfmwlrubavw/100 WBC (Bld)15.1 %.[facility] HospitalH Auto (RBC) [Entitic mass]Ordered By: Lj Ryan on 92-63-7176OMD (RBC) [Entitic mass]30.2 pg24.7-34.3FCleveland Clinic [facility] HospitalMCHC Auto (RBC) [Mass/Vol]Ordered By: Lj Ryan on 90-57-9186QDFS (RBC) [Mass/Vol]34.4 g/dL32.0-35.0[facility] HospitalMCV Auto (RBC) [Entitic vol]Ordered By: Lj Ryan on 56-39-2414OHB (RBC) [Entitic vol]87.7 aK70-411AtbzayodvMary Rutan HospitalMagnesium [Mass/volume] in Serum or PlasmaOrdered By: Lj Ryan on 27-03-1089Gutetrzkn [Mass/Vol]2.1 mg/dL1.9-2.7 [facility] HospitalMonocytes Auto (Bld) [#/Vol]Ordered By: Lj Ryan on 79-35-0788Ktlrxsquq (Bld) [#/Vol]0.5 10*3/uL0.0-0.8[facility] HospitalMonocytes/100 WBC Auto (Bld)Ordered By: Lj Ryan on 05-18-2023 Monocytes/100 WBC (Bld)8.7 %.[facility] HospitalNeutrophils Auto (Bld) [#/Vol]Ordered By: Lj Ryan on 21-77-7113Uhveebhyuek (Bld) [#/Vol]4.4 10*3/uL1.8-7.7FCleveland Clinic [facility] HospitalNeutrophils/100 WBC Auto (Bld) Ordered By: Lj Ryan on 55-62-5504Kgbnciljwsd/100 WBC (Bld)73.6 %.[facility] HospitalNo Panel InformationOrdered By: Lj Ryan on 29-98-5612Kfkjczxxw GFR (CKD-EPI)39.034 mL/MinMary Rutan Hospital Pharmacy Creatinine Clearance (Chem38.04[facility] Nucleated erythrocytes [Presence] in Blood by Automated countOrdered By: Lj Ryan on 48-34-5916Yhtqivyrp RBC Auto Ql (Bld)0.1 /100{WBC}0-0.5FCleveland Clinic [facility] HospitalPhosphate [Mass/volume] in Serum or PlasmaOrdered By: Lj Ryan on 21-78-5886Rgnngwszf [Mass/Vol]5.3 mg/dL3.7-7.2FCleveland Clinic [facility] HospitalPlatelet mean volume Auto (Bld) [Entitic vol]Ordered By: Lj Ryan on 32-51-0281Aeqkqigb mean volume (Bld) [Entitic vol]7.8 fL6.3-10.7 [facility] HospitalPlatelets Auto (Bld) [#/Vol]Ordered By: Lj Ryan on 77-89-2816Vvewifmqb (Bld) [#/Vol]314 10*3/gW390-265ThbnkhugmMary Rutan HospitalPotassium [Moles/volume] in Serum or PlasmaOrdered By: Lj Ryan on 37-82-7910Yjeypxdst [Moles/Vol]4.0 mmol/L3.5-5.1FCleveland Clinic [facility] HospitalRBC Auto (Bld) [#/Vol]Ordered By: Lj Ryan on 94-53-1885JLJ (Bld) [#/Vol]3.21 10*6/uL3.60-5.00[facility] Northerum or plasma anion gap determinationOrdered By: Lj Ryan on 28-18-1021Bploz gap [Moles/Vol]12.5 mmol/L6.0-15.0[facility] Northodium [Moles/volume] in Serum or PlasmaOrdered By: Lj Ryan on 74-22-7088Fxwwjr [Moles/Vol]142 mmol/N432-435JpvzlbstjMary Rutan HospitalUrea nitrogen [Mass/volume] in Serum or PlasmaOrdered By: Lj Ryan on 61-39-8161Glqf nitrogen [Mass/Vol]21 mg/dL7-25[facility] HospitalWBC Auto (Bld) [#/Vol]Ordered By: Lj Ryan on 77-96-2195VUM (Bld) [#/Vol]6.0 10*3/uL 3.8-11.6FCleveland Clinic [facility] HospitalAlanine aminotransferase [Enzymatic activity/volume] in Serum or PlasmaOrdered By: Fernando Ch on 83-80-0171YMO [Catalytic activity/Vol]14 U/L7-52[facility] HospitalAlbumin [Mass/volume] in Serum or Plasma by Bromocresol green (BCG) dye binding metho Ordered By: Fernando Ch on 33-84-4334Mclziej BCG dye [Mass/Vol]4.0 g/dL3.5-5.7 [facility] HospitalAlkaline phosphatase [Enzymatic activity/volume] in Serum or PlasmaOrdered By: Fernando Ch on 01-18-9794PVH [Catalytic activity/Vol]44 U/P90-699KxdxfuvkcMary Rutan HospitalAspartate aminotransferase [Enzymatic activity/volume] in Serum or PlasmaOrdered By: Fernando Ch on 20-78-4151LHA [Catalytic activity/Vol]16 U/V98-07FngtpzbogMary Rutan HospitalBilirubin.total [Mass/volume] in Serum or PlasmaOrdered By: Fernando Ch on 18-23-8340Hfmgbbvmd [Mass/Vol]0.7 mg/dL0.3-1.0[facility] HospitalCreatine kinase [Enzymatic activity/volume] in Serum or Plasma Ordered By: Fernando Ch on 20-92-4959WC [Catalytic activity/Vol]49 U/L30-223 [facility] HospitalGlobulin Calc (S) [Mass/Vol]Ordered By: Fernando Ch on 18-30-6696Gvyoinlx (S) [Mass/Vol]2.9 g/dLMary Rutan HospitalLaboratory - CoagulationOrdered By: Fernando Ch on 64-98-9455BJ Coag (PPP) [Time]12.5 s9.0-12.9[facility] HospitalMonocyte distribution width [Entitic volume] in Blood by AutomatedOrdered By: Fernando Ch on 86-64-0815Btxinyvx distribution width Auto (Bld) [Entitic vol]22.37 %0.00-20.00 [facility] HospitalComment on above:For adults in ED, MDW > 20.0 may be associated with a higher risk of sepsis during the first 12 hrs of hospital admissionNatriuretic peptide B [Mass/Vol]Ordered By: Fernando Ch on 93-33-1151Cxgfyddgqqa peptide B (Bld) [Mass/Vol]450.0 pg/mL5-100[facility] HospitalPlatelet poor plasma international normalized ratio (INR) by coagulation assay (relatOrdered By: Fernando Ch on 02-04-7847BHW Coag (PPP) [Relative time]1.1 {INR}[facility] HospitalComment on above: INR Therapeutic Range A) [...] By: Fernando Ch on 05-17-2023 Protein [Mass/Vol]6.9 g/dL6.4-8.9[facility] Northerum or plasma albumin/globulin mass ratioOrdered By: Fernando Ch on 05-17-2023 Albumin/Globulin [Mass ratio]1.4 {ratio}[facility] Troponin I.cardiac [Mass/volume] in Serum or Plasma by Detection limit <= 0.01 ng/Ordered By: Fernando Ch on 36-35-4125Asloysac I.cardiac DL <= 0.01 ng/mL [Mass/Vol]10.2 pg/mL0.0-15.0[facility] HospitalActivated partial thromboplastin time (aPTT) in platelet poor plasma by coagulation aOrdered By: Jonna Perry on 53-12-9569uCQX Coag (PPP) [Time]32.0 s25.1-36.5FCleveland Clinic [facility] HospitalBand form neutrophils/100 WBC Manual cnt (Bld)Ordered By: Jonna Perry on 15-52-2758Shwq form neutrophils/100 WBC (Bld)4 %0-5FCleveland Clinic [facility] HospitalBasophils Auto (Bld) [#/Vol]Ordered By: Jonna Perry on 03-08-2023 Basophils (Bld) [#/Vol]N/[facility] DaytonBasophils/100 WBC Auto (Bld)Ordered By: Jonna Perry on 56-72-7606Hlrdeoqgo/100 WBC (Bld)NMarietta Memorial HospitalBasophils/100 WBC Manual cnt (Bld)Ordered By: Jonna Perry on 55-89-6811Mqbdeucpy/100 WBC (Bld)0 %0-2FC[facility] Carbon dioxide, total [Moles/volume] in Serum or PlasmaOrdered By: Jonna Perry on 33-23-8818HS8 [Moles/Vol]33.1 mmol/L21.0-31.0[facility] Chloride [Moles/volume] in Serum or PlasmaOrdered By: Jonna Perry on 03-08-2023 Chloride [Moles/Vol]104 mmol/Y26-382NvceiejvmMary Rutan HospitalCholesterol [Mass/volume] in Serum or PlasmaOrdered By: Jonna Perry on 79-46-9350Hmwgnfofuvr [Mass/Vol]151 mg/dV565-276MjcjkrugkMary Rutan HospitalComment on above:Chol less than 200 mg/dl low riskChol 201-239 mg/dl borderline riskChol 240 mg/dl and greater high riskCholesterol in LDL Calc [Mass/Vol]Ordered By: Jonna Perry on 49-07-6245Clnjxvfzark in LDL [Mass/Vol]100 mg/dL0-100[facility] HospitalComment on above:LDL ATP III CLASSIFICATIONLDL less than 100 mg/dL OptimalLDL 100-129 mg/dL Near or above hzqbdrjQBI676-104 mg/dL Borderline highLDL 160-189 mg/dL HighLDL greater than 189 mg/dL Very highCholesterol in VLDL Calc [Mass/Vol]Ordered By: Jonna Perry on 05-73-9260Ubjaolgznqk in VLDL [Mass/Vol]13 mg/dLMary Rutan HospitalCreatinine [Mass/volume] in Serum or PlasmaOrdered By: Jonna Perry on 16-71-8143Meoebaszmo [Mass/Vol]1.14 mg/dL0.60-1.20[facility] HospitalEosinophils Auto (Bld) [#/Vol] Ordered By: Jonna Perry on 04-83-5793Mzsqozrsmhy (Bld) [#/Vol]N/[facility] DaytonEosinophils/100 WBC Auto (Bld)Ordered By: Jonna Perry on 11-18-6446Yijykwfrmot/100 WBC (Bld)N/[facility] Eosinophils/100 WBC Manual cnt (Bld)Ordered By: Jonna Perry on 03-08-2023 Eosinophils/100 WBC (Bld)2 %1-3FCleveland Clinic [facility] HospitalErythrocyte distribution width Auto (RBC) [Ratio]Ordered By: Jonna Perry on 03-08-2023 Erythrocyte distribution width (RBC) [Ratio]14.1 %11.9-15.3FCleveland Clinic [facility] HospitalHematocrit Auto (Bld) [Volume fraction]Ordered By: Jonna Perry on 23-61-2837Ffspxxyyne (Bld) [Volume fraction]30.7 %34.0-46.4FCleveland Clinic [facility] HospitalHemoglobin [Mass/volume] in BloodOrdered By: Jonna Perry on 39-12-5550Ilppttvdwu (Bld) [Mass/Vol]10.3 g/dL11.8-15.4FCleveland Clinic [facility] HospitalLaboratory - Chemistry and Chemistry - challengeon 03-08-2023 Cholesterol [Mass/Vol]151\S\394Kpfeep152-652XI-DxfsjSauk Centre Hospital 250 DO Work Phone: Comment on above:Chol less than 200 mg/dl low risk Chol 201-239 mg/dl borderline risk Chol 240 mg/dl and greater high risk Cholesterol in LDL [Mass/Vol]100\S\027Tkxlva5-908NP-QqfyySauk Centre Hospital 250 DO Work Phone: Comment on above:LDL ATP III CLASSIFICATION LDL less than 100 mg/dL Optimal LDL 100-129 mg/dL Near or above optimal LDL 130-159 mg/dL Borderline high LDL 160-189 mg/dL High LDL greater than 189 mg/dL Very high Laboratory - CoagulationOrdered By: Jonna Perry on 77-64-5458GQ Coag (PPP) [Time] 12.2 s9.0-12.9[facility] CenterLeukocytes [#/volume] corrected for nucleated erythrocytes in Blood by Automated counOrdered By: Jonna Perry on 52-65-7086TKB corrected for nucl RBC Auto (Bld) [#/Vol]6.2 10*3/uL3.8-11.6 [facility] HospitalLymphocytes Auto (Bld) [#/Vol]Ordered By: Jonna Perry on 43-62-8038Kwemxtckkbm (Bld) [#/Vol]N/[facility] DaytonLymphocytes/100 WBC Auto (Bld)Ordered By: Jonna Perry on 03-08-2023 Lymphocytes/100 WBC (Bld)N/[facility] DaytonLymphocytes/100 WBC Manual cnt (Bld)Ordered By: Jonna Perry on 13-86-1408Avrvnkibhda/100 WBC (Bld)16 %18-42[facility] Auto (RBC) [Entitic mass]Ordered By: Jonna Perry on 90-70-8205BQP (RBC) [Entitic mass]29.0 pg24.7-34.3FCleveland Clinic [facility] HospitalMCHC Auto (RBC) [Mass/Vol]Ordered By: Jonna Perry on 31-47-9990VIUO (RBC) [Mass/Vol]33.6 g/dL32.0-35.0[facility] HospitalMCV Auto (RBC) [Entitic vol]Ordered By: Jonna Perry on 04-68-7445OUO (RBC) [Entitic vol]86.2 vQ01-565XlsrxbdhjMary Rutan HospitalMetamyelocytes/100 WBC Manual cnt (Bld)Ordered By: Jonna Perry on 84-66-5728Hflbfjdnydjhwq/100 WBC (Bld)1 %0-0[facility] HospitalMonocytes Auto (Bld) [#/Vol]Ordered By: Jonna Perry on 14-56-1981Gywphwcvo (Bld) [#/Vol]N/[facility] DaytonMonocytes/100 WBC Auto (Bld)Ordered By: Jonna Perry on 03-08-2023 Monocytes/100 WBC (Bld)N/[facility] DaytonMonocytes/100 WBC Manual cnt (Bld)Ordered By: Jonna Perry on 61-72-5328Paohqgdkv/100 WBC (Bld)3 % 2-[facility] HospitalNeutrophils Auto (Bld) [#/Vol]Ordered By: Jonna Perry on 54-44-1977Twjnvphwama (Bld) [#/Vol]N/[facility] DaytonNeutrophils/100 WBC Auto (Bld)Ordered By: Jonna Perry on 03-08-2023 Neutrophils/100 WBC (Bld)N/[facility] DaytonNo Panel InformationOrdered By: Jonna Perry on 92-77-5141Vieauhnbn GFR (CKD-EPI)48.665 mL/MinMary Rutan HospitalPharmacy Creatinine Clearance (ChemN/A [facility] HospitalNo Panel Informationon 24-69-290450.0\S\32.0 Cgtchr03.1-36.5MP-[facility] 250 DO Work Phone: Comment on above:PERFORMED BY:[place] [address] [address] [place], [place] [phone] MEDICAL DIRECTORJAMAAL MO M.D.1.1\S\1.1NormalMP-[facility] 250 DO Work Phone: Comment on above:INR [...] patients with mechanical heart valves: 3 - 4.512.2\S\12.0Xlnzgw0.0-12.9MP-[facility] 250 DO Work Phone: [phone]\S\9.2Hnnxwo1.3-10.7MP-[facility]us[facility] 250 DO Work Phone: [phone]\S\33.1above high gaytxcaun06.0-31.0MP-[facility] 250 DO Work Phone: [phone]\S\370Mxejct45-470TH-Gmntt [facility] 250 DO Work Phone: [phone]\S\5.8Ckrttx0.5-5.1MP-[facility] 250 DO Work Phone: [phone]\S\838Pwdhpe681-715NJ-Ayyir [facility] 250 DO Work Phone: [phone]\S\97Oykfdk8-67BA-Ridid [facility] 250 DO Work Phone: [phone]\S\48.665NormalMP-[facility] 250 DO Work Phone: [phone]\S\1.17Rtovxd6.60-1.20MP-[facility] 250 DO Work Phone: [phone]\S\4.0Normal<5.0MP-[facility] 250 DO Work Phone: Comment on above:PERFORMED BY:[place] [place], [place] [phone] MEDICAL DIRECTORJAMAAL MO M.D.13\S\13NormalMP-[facility] 250 DO Work Phone: [phone]\S\57Glpbrp1-325QG-Jhaqo [facility] 250 DO Work Phone: Comment on above:TRIG ATP III CLASSIFICATION TRIG less than 150 mg/dL Normal TRIG 150-199 mg/dL Borderline high SJAN180-343 mg/dL High TRIG greater than 500 mg/dL Very high Standard traceable to the Center for Disease Conrtrol and Prevention (CDC) test method.38\S\85Iedaxo27-86GC-Xgqiz [facility] 250 DO Work Phone: Comment on above:HDL CHOL ATP-III CLASSIFICATION Cardiovascular Risk HDL > or equal to 60 mg/dL LOW HDL < 40 mg/dL HIGH74\S\74 above high kojyxbyub59-66YL-Jsaws [facility] 250 DO Work Phone: [phone]\S\935Ebdrxa426-749VS-Ucyrg [facility] 250 DO Work Phone: [phone]\S\14.4Cqgqej06.9-15.3MP-[facility] 250 DO Work Phone: [phone]\S\33.6Akxdar47.0-35.0MP-[facility] 250 DO Work Phone: [phone]\S\29.1Vblffm86.7-34.3MP-[facility] 250 DO Work Phone: [phone]\S\1above high xoszvejpv0-3UN-Zsrdg [facility] [place] 250 DO Work Phone: [phone]\S\5Nmxcfq7-6PW-Aehjw [facility] 250 DO Work Phone: [phone]\S\0Lyvvoq2-7MH-Vulqe [facility] 250 DO Work Phone: [phone]\S\1Frqntg8-92UG-Ldhck [facility] 250 DO Work Phone: [phone]\S\16below low vwpsbalfv97-10MU-Swyms [facility] [place] 250 DO Work Phone: [phone]\S\4Ioilrs0-5NY-Zxxak [facility] 250 DO Work Phone: YcuzzvZftcwnWI-Emvyd [facility] 250 DO Work Phone: [phone] on above:PERFORMED BY:[facility] [place], [place] [phone] MEDICAL DIRECTORJAMAAL MO M.D.NormalNormalNormalMP-[facility] 250 DO Work Phone: [phone]\S\86.7Kywpjd81-767SQ-Wkyww [facility] 250 DO Work Phone: [phone]\S\30.7below low eclcwrdoz66.0-46.4MP-[facility] 250 DO Work Phone: [phone]\S\10.3below low ylolbyoox26.8-15.4MP-[facility] 250 DO Work Phone: [phone]\S\3.56below low threshold3.60-5.00MP-[facility] 250 DO Work Phone: [phone]\S\8.0Kjrumb0.8-11.6MP-[facility] 250 DO Work Phone: [phone]\S\6.9Uwvsnr0.8-11.6MP-[facility] 250 DO Work Phone: Nucleated erythrocytes [Presence] in Blood by Automated countOrdered By: Jonna Perry on 58-32-1587Cyowitnyn RBC Auto Ql (Bld)N/A [facility] HospitalOvalocyte detectionOrdered By: Jonna Perry on 15-20-9575Ntlelnnaez LM Ql (Bld)SlightMary Rutan HospitalPlatelet adequacy [Presence] in Blood by Light microscopyOrdered By: Jonna Perry on 81-01-1775Ktcyaxazm LM Ql (Bld)NormalNoOhioHealth [facility] Platelet mean volume Auto (Bld) [Entitic vol]Ordered By: Jonna Perry on 03-08-2023 Platelet mean volume (Bld) [Entitic vol]9.0 fL6.3-10.7FCleveland Clinic [facility]odi HospitalPlatelet morphology finding [Identifier] in BloodOrdered By: Jonna Perry on 46-34-0584Owyqvpgn morphology finding Nom (Bld)N/AFCleveland Clinic Ak[facility] Lodi HospitalPlatelet poor plasma international normalized ratio (INR) by coagulation assay (relatOrdered By: Jonna Perry on 60-22-4637EFX Coag (PPP) [Relative time]1.1 {INR}[facility] HospitalComment on above:INR Therapeutic Range A) Pre- [...] Auto (Bld) [#/Vol]Ordered By: Jonna Perry on 16-36-1220Bexoqhvyb (Bld) [#/Vol]276 10*3/tT617-283RiysjxdufMary Rutan HospitalPlatelets Large [Presence] in Blood by Light microscopyOrdered By: Jonna Perry on 86-16-7873Hkiesrcaz Large LM Ql (Bld)[facility] DaytonPoikilocytosis [Presence] in Blood by Light microscopyOrdered By: Jonna Perry on 40-27-1029Uyiivvhcswdhig LM Ql (Bld)[facility] DaytonPotassium [Moles/volume] in Serum or PlasmaOrdered By: Jonna Perry on 79-43-9726Qnaxxzqfk [Moles/Vol]5.1 mmol/L 3.5-5.1FC[facility] Clinic [facility] Lodi HospitalRBC Auto (Bld) [#/Vol]Ordered By: Jonna Perry on 71-72-1698VIB (Bld) [#/Vol]3.56 10*6/uL3.60-5.00[facility] Rut[facility] HospitalRB morphologyOrdered By: Jonna Perry on 33-35-6323APF morphology finding Nom (Bld)N/AFWadsworth-Rittman Hospitalegmented neutrophils/100 WBC Manual cnt (Bld)Ordered By: Jonna Perry on 49-82-0505Anfuffsvr neutrophils/100 WBC (Bld)74 %50-70[facility] Northerum or plasma anion gap determinationOrdered By: Jonna Perry on 20-66-7527Vqvmw gap [Moles/Vol]9.0 mmol/L 6.0-15.0[facility] Northerum or plasma high density lipoprotein (HDL) cholesterol measurementOrdered By: Jonna Perry on 03-08-2023 Cholesterol in HDL [Mass/Vol]38 mg/iU19-04SjghflvhvMary Rutan Hospital Comment on above:HDL CHOL ATP-III CLASSIFICATION Cardiovascular RiskHDL > or equal to 60 mg/dL LOWHDL < 40 mg/dL HIGHSerum or plasma total cholesterol/high density lipoprotein (HDL) cholesterol mass ratOrdered By: Jonna Perry on 12-36-9459Lfxgwjxbppc.total/Cholesterol in HDL [Mass ratio]4.0 {ratio}<5.0 [facility] Northodium [Moles/volume] in Serum or PlasmaOrdered By: Jonna Perry on 27-00-1578Nhfnmg [Moles/Vol]141 mmol/Y901-124BwerwkhwpMary Rutan HospitalTriglyceride [Mass/volume] in Serum or PlasmaOrdered By: Jonna Perry on 79-77-4037Zhiexnzzksxt [Mass/Vol]67 mg/dL0-149[facility] Rutan HospitalComment on above:TRIG ATP III CLASSIFICATIONTRIG less than 150 mg/dL NormalTRIG 150-199 mg/dL Borderline highTRIG 200-500 mg/dL High TRIG greater than 500 mg/dL Very highStandard traceable to the Center for Disease Co nrtrol and Prevention (CDC) test method.Urea nitrogen [Mass/volume] in Serum or PlasmaOrdered By: Jonna Perry on 12-54-2990Izvw nitrogen [Mass/Vol]21 mg/dL7-25 [facility] HospitalWBC Auto (Bld) [#/Vol]Ordered By: Jonna Perry on [id number] (Bld) [#/Vol]8.6 10*3/uL3.8-11.6[facility] ([facility]iology)on 82-26-1189Eipnjm-up visitDiagnoses/Problems Assessed Class 1 obesity with body [...] admitted to [facility], diuresed approximately 14 pounds with diuretics. She [...] negative for complaint. Vitals Vital Signs Recorded: [id number] 10:14AMRecorded: 52Rhl1936 10:04AM Wiglvkfl217, RUE, Dknvaos02 (more content not included)...NormalUH [facility]works Tobacco Screening.on 40-76-4532Fozqk depression screening assessmentNoLegacy Health Vu[facility] 250 DO Work Phone: Fall risk assessmenta) No falls within the last year [facility] 250 DO Work Phone: [facility]- [place] 250 DO Work Phone: CBC AUTO DIFFon [id number] #0.0 103/ulNormal 0.0-0.1[facility] HospitalComment on above:Performed By: #### CBC #### [facility] [address] [place] [address] Dr. Jose David ShanksBasophils/100 WBC (Bld)0.5 %Normal0.2-2.0[facility] Comment on above:Performed By: #### CBC #### [facility] [address] [place] [address] Dr. Jose David Devries #0.1 103/ulNormal0.0-0.7The [facility] CenterComment on above: Performed By: #### CBC #### [facility] [address] [place] [address] Dr. Jose David Vickersosinophils/100 WBC (Bld)1.2 %Normal0.9-7.0The [facility] Comment on above:Performed By: #### CBC #### [facility] [address] [place] [address] Dr. Jose David Vickersrythrocyte distribution width (RBC) [Ratio]13.2 %Zoljef83.0-15.0 [facility] HospitalComment on above:Performed By: #### CBC #### [facility] [address] [place] [address] Dr. Jose David ShanksHematocrit (Bld) [Volume fraction]33.9 %Critically low36.0-48.0 [facility] HospitalComment on above:Performed By: #### CBC #### [facility] [address] [place] [address] Dr. Jose David ShanksHemoglobin (Bld) [Mass/Vol]11.0 g/dLCritically low12.0-16.0[facility] HospitalComment on above:Performed By: #### CBC #### [facility] [address] [place] [address] Dr. Jose David Guerrero #0.03 10e3/ulNormal0.00-0.03The [facility] CenterComment on above:Performed By: #### CBC #### [facility] [address] [place] [address] Dr. Jose David Guerrero %0.5 %Normal0.0-0.5The [facility] CenterComment on above: Performed By: #### CBC #### [facility] [address] [place] [address] Dr. Jose David Rolon #0.8 103/ulCritically low1.2-3.8The [facility] Comment on above:Performed By: #### CBC #### [facility] [address] [place] [address] Dr. Jose David Anthonyhocytes/100 WBC (Bld)13.7 %Critically low20.5-60.0The [facility] CenterComment on above:Performed By: #### CBC #### [facility] [address] [place] [address] Dr. Jose David Donovan DIFF REQNONormalThe [facility] CenterComment on above: Performed By: #### CBC #### [facility] [address] [place] [address] Dr. Jose David Andino (RBC) [Entitic mass]28.9 oaObnryy88.7-34.0The [facility] CenterComment on above:Performed By: #### CBC #### [facility] [address] [place] [address] Dr. Jose David Turner (RBC) [Mass/Vol]32.4 g/cDJtkxwr07.9-35.2The [facility] CenterComment on above:Performed By: #### CBC #### [facility] [address] [place] [address] Dr. Jose David Moctezuma (RBC) [Entitic vol]89.0 iYRcgedd45.0-99.0The [facility] CenterComment on above:Performed By: #### CBC #### [facility] [address] [place] [address] Dr. Jose David Horton #0.5 103/ulNormal0.3-0.8The [facility] CenterComment on above:Performed By: #### CBC #### [facility] [address] [place] [address] Dr. Jose David Olivoocytes/100 WBC (Bld)8.2 %Normal1.7-12.0The [facility] Comment on above:Performed By: #### CBC #### [facility] [address] [place] [address] Dr. Jose David Mix #4.3 103/ulNormal1.4-6.5The [facility] CenterComment on above:Performed By: #### CBC #### [facility] [address] [place] [address] Dr. Jose David Herndonutrophils/100 WBC (Bld)75.9 %Critically high43.0-75.0The [facility] CenterComment on above:Performed By: #### CBC #### [facility] [address] [place] [address] Dr. Jose David Gonzalez mean volume (Bld) [Entitic vol]10.1 fLNormal9.5-13.5The [facility] CenterComment on above:Performed By: #### CBC #### [facility] [address] [place] [address] Dr. Jose David ShanksPLT279 103/idTmnixn223-823Cji [facility] CenterComment on above: Performed By: #### CBC #### [facility] [address] [place] [address] Dr. Jose David BustosC3.81 106/ulCritically low4.20-5.40The [facility] CenterComment on above:Performed By: #### CBC #### [facility] [address] [place] [address] Dr. Jose David ShanksWBC5.7 103/ulNormal4.0-11.0The [facility] CenterComment on above: Performed By: #### CBC #### [facility] [address] [place] [address] Dr. Jose David Sullivan 45-57-6043Hskywphn [Mass/Vol]180.0 ng/mLNormal 8.0-252.0The [facility] CenterComment on above:Performed By: #### CBC #### [facility] [address] [place] [address] Dr. Jose David Helm AND TIBCon 03-01-2023% ISVITUALCZ43.6 %NormalThe [facility] CenterComment on above:Performed By: #### CBC #### [facility] [address] [address] [address] Jose David Helm [Mass/Vol]61.0 ug/lYUjwsio77.0-170.0The [facility] Comment on above:Performed By: #### CBC #### [facility] [address] [place] [address] Dr. Jose David ShanksTIBC JVBHOE914.0 ug/wYRupzvj834.0-450.0The [facility] Comment on above:Performed By: #### CBC #### [facility] [address] [place] [address] Dr. Jose David Villanueva STRESS/REST MULTIon 59-17-5673JU STRESS/REST MULTIPatient: LASHAUN JOAQUIN Exam Date: 03/01/2023 : 1940 Gender:F Ordering : DR NATHAN HATHAWAY D.O. Admission #: [id number] Family : Order #: [id number] CLICK HERE TO VIEW EXAM RADIOLOGY REPORT [...] STUDY: PERFUSION DEFECT: LOCATION: Mid-anterior. Apical anterior. [place]cher. SIZE: Medium (3-4 segments). SEVERITY: Moderate. TYPE: [...] by: William Dominguez MD on 03/01/2023 at 14:54Providence HospitalPROF CHEM 8 (BAS METB)on 97-19-2669Relio gap [Moles/Vol]8.8 mmol/LNormalMercy Health West HospitalComment on above:Performed By: #### LACT #### [facility] [address] [place] [address] Dr. Jose David ShanksCalcium [Mass/Vol]9.0 mg/dLNormal8.5-10.1[facility] Comment on above:Performed By: #### LACT #### [facility] [address] [place] [address] Dr. Jose David ShanksChloride [Moles/Vol]106 mmol/VYitodw51-885UayMercy Health West Hospital Comment on above:Performed By: #### LACT #### [facility] [address] [place] [address] Dr. Jose David ShanksCO2 [Moles/Vol]31.0 mmol/HBndjya64.0-32.0[facility] Comment on above:Performed By: #### LACT #### [facility] [address] [place] [address] Dr. Jose David ShanksCreatinine [Mass/Vol]1.18 mg/dLCritically high0.55-1.02[facility] HospitalComment on above:Performed By: #### LACT #### [facility] [address] [place] [address] Dr. Main ChangEGFR-AF JJYXICFO77 mL/min/1.38a2Xqutrgznkv low>=60The [facility] CenterComment on above:Performed By: #### LACT #### [facility] [address] [address] [address] Jose David VickersGFR-NON AF LEBWSKQT98 mL/min/1.02p8Ffrvgvnldo low>=60The [facility] CenterComment on above:Performed By: #### LACT #### [facility] [address] [address] [address] Jose David ShanksGlucose [Mass/Vol]98 mg/mQPhrakp23-882Frm [facility] Comment on above:Performed By: #### LACT #### [facility] [address] [place] [address] Dr. Jose David ShanksPotassium [Moles/Vol]4.8 mmol/LNormal3.5-5.1[facility] Comment on above:Performed By: #### LACT #### [facility] [address] [place] [address] Dr. Jose David ShanksSodium [Moles/Vol]141 mmol/HOojeiv137-092VifMercy Health West Hospital Comment on above:Performed By: #### LACT #### [facility] [address] [place] [address] Dr. Jose David ShanksUrea nitrogen [Mass/Vol]16.0 mg/dLNormal7.0-18.0The [facility] CenterComment on above:Performed By: #### LACT #### [facility] [address] [place] [address] Dr. Jose David Rubio nitrogen/Creatinine [Mass ratio]13.6 mg/mgNormalThe [facility] CenterComment on above:Performed By: #### LACT #### [facility] [address] [address] [address] Jose David ShanksRETICULOCYTEon 28-78-2281QGZMI9.51 %Normal0.60-3.10The [facility] CenterComment on above:Performed By: #### CBC #### [facility] [address] [place] [address] Dr. Jose David Mohan B12 AND FOLATEon 34-08-6650Ttwqcjmek (Vitamin B12) [Mass/Vol] 1406.0 pg/mLCritically isjq194.0-986.0The [facility] CenterComment on above: Performed By: #### CBC #### [facility] [address] [place] [address] Dr. Jose David ShanksFOLATE19.00 ng/mLNormal8.60-58.90The [facility] CenterComment on above:Performed By: #### CBC #### [facility] [address] [address] [address] Jose David AllenC AUTO DIFFon 77-50-5552OARZ #0.0 103/ulNormal0.0-0.1The [facility] CenterComment on above:Performed By: #### CBC #### [facility] [address] [place] [address] Dr. Jose David ShanksBasophils/100 WBC (Bld)0.6 %Normal0.2-2.0The [facility] Comment on above:Performed By: #### CBC #### [facility] [address] [address] [address] Jose David Devries #0.1 103/ulNormal0.0-0.7The [facility] CenterComment on above: Performed By: #### CBC #### [facility] [address] [place] [address] Dr. Jose David Vickersosinophils/100 WBC (Bld)2.7 %Normal0.9-7.0The [facility] Comment on above:Performed By: #### CBC #### [facility] [address] [place] [address] Dr. Jose David Vickersrythrocyte distribution width (RBC) [Ratio]13.5 %Bmftue93.0-15.0 The [facility] CenterComment on above:Performed By: #### CBC #### [facility] [address] [place] [address] Dr. Jose David ShanksHematocrit (Bld) [Volume fraction]30.0 %Critically low36.0-48.0 The [facility] CenterComment on above:Performed By: #### CBC #### [facility] [address] [address] [address] Jose David ShanksHemoglobin (Bld) [Mass/Vol]10.0 g/dLCritically low12.0-16.0The [facility] CenterComment on above:Performed By: #### CBC #### [facility] [address] [address] [address] Jose David Guerrero #0.02 10e3/ulNormal0.00-0.03The [facility] CenterComment on above:Performed By: #### CBC #### [facility] [address] [place] [address] Dr. Jose David Guerrero %0.4 %Normal0.0-0.5The [facility] CenterComment on above: Performed By: #### CBC #### [facility] [address] [place] [address] Dr. Jose David Rolon #0.9 103/ulCritically low1.2-3.8The [facility] Comment on above:Performed By: #### CBC #### [facility] [address] [address] [address] Jose David Anthonyhocytes/100 WBC (Bld)19.3 %Critically low20.5-60.0The [facility] CenterComment on above:Performed By: #### CBC #### [facility] [address] [address] [address] Jose David MazariegosUAL DIFF REQNONormalThe [facility] CenterComment on above: Performed By: #### CBC #### [facility] [address] [address] [address] Jose David Turner (RBC) [Entitic mass]29.3 haRvcldk11.7-34.0The [facility] CenterComment on above:Performed By: #### CBC #### [facility] [address] [place] [address] Dr. Jose David Turner (RBC) [Mass/Vol]33.3 g/qYAsyurt02.9-35.2The [facility] CenterComment on above:Performed By: #### CBC #### [facility] [address] [address] [address] Jose David TurnerV (RBC) [Entitic vol]88.0 gGXsmsus98.0-99.0The [facility] CenterComment on above:Performed By: #### CBC #### [facility] [address] [address] [address] Jose David Horton #0.4 103/ulNormal0.3-0.8The [facility] CenterComment on above:Performed By: #### CBC #### [facility] [address] [address] [address] Jose David Olivoocytes/100 WBC (Bld)8.3 %Normal1.7-12.0The [facility] on above:Performed By: #### CBC #### [facility] [address] [place] [address] Dr. Jose David Mix #3.3 103/ulNormal1.4-6.5The [facility] CenterComment on above:Performed By: #### CBC #### [facility] [address] [place] [address] Dr. Jose David Herndonutrophils/100 WBC (Bld)68.7 %Wyvrvu14.0-75.0The [facility] CenterComment on above:Performed By: #### CBC #### [facility] [address] [place] [address] Dr. Jose David Carmichaellet mean volume (Bld) [Entitic vol]9.9 fLNormal9.5-13.5The [facility] CenterComment on above:Performed By: #### CBC #### [facility] [address] [place] [address] Dr. Jose David ShanksPLT259 103/vqPkefti049-199Hkp [facility] CenterComment on above: Performed By: #### CBC #### [facility] [address] [place] [address] Dr. Jose David ShanksRBC3.41 106/ulCritically low4.20-5.40The [facility] HospitalComment on above:Performed By: #### CBC #### [facility] [address] [address] [address] Jose David ShanksWBC4.8 103/ulNormal4.0-11.0The [facility] CenterComment on above: Performed By: #### CBC #### [facility] [address] [place] [address] Dr. Jose David ShanksPROF CHEM 8 (BAS METB)on 16-23-3687Semay gap [Moles/Vol]11.7 mmol/LNormalThe [facility] CenterComment on above:Performed By: #### LACT #### [facility] [address] [place] [address] Dr. Jose David ShanksCalcium [Mass/Vol]8.6 mg/dLNormal8.5-10.1The [facility] Comment on above:Performed By: #### LACT #### [facility] [address] [place] [address] Dr. Jose David ShanksChloride [Moles/Vol]107 mmol/YMjffkf01-667Jtv [facility] Comment on above:Performed By: #### LACT #### [facility] [address] [place] [address] Dr. Jose David ShanksCO2 [Moles/Vol]30.9 mmol/WNlkfjv31.0-32.0The [facility] Comment on above:Performed By: #### LACT #### [facility] [address] [place] [address] Dr. Jose David ShanksCreatinine [Mass/Vol]1.04 mg/dLCritically high0.55-1.02The [facility] CenterComment on above:Performed By: #### LACT #### [facility] [address] [place] [address] Dr. Jose David VickersGFR-AF MAURITANIAN>60Normal>=60The [facility] CenterComment on above:Performed By: #### LACT #### [facility] [address] [place] [address] Dr. Jose David VickersGFR-NON AF CZKWVIFM08 mL/min/1.86z8Eeskbtflly low>=60The [facility] CenterComment on above:Performed By: #### LACT #### [facility] [address] [address] [address] Jose David ShanksGlucose [Mass/Vol]97 mg/hHUzjnjg52-769Bvu [facility] Comment on above:Performed By: #### LACT #### [facility] [address] [address] [address] Jose David ShanksPotassium [Moles/Vol]3.6 mmol/LNormal3.5-5.1[facility] Comment on above:Performed By: #### LACT #### [facility] [address] [place] [address] Dr. Jose David ShanksSodium [Moles/Vol]146 mmol/LCritically bnmu906-904Kmo [facility] CenterComment on above:Performed By: #### LACT #### [facility] [address] [place] [address] Dr. Jose David ShanksUrea nitrogen [Mass/Vol]17.0 mg/dLNormal7.0-18.0The [facility] CenterComment on above:Performed By: #### LACT #### [facility] [address] [place] [address] Dr. Jose David Rubio nitrogen/Creatinine [Mass ratio]16.3 mg/mgNormalThe [facility] CenterComment on above:Performed By: #### LACT #### [facility] [address] [place] [address] Dr. Jose David ShanksXR CHEST 2 Von 10-56-8712LL CHEST 2 VHISTORY: 89-leje-xfkjpf referred for shortness of breath. COMPARISON: 02-08-2023. [...] Electronically authenticated by: EDWARD MENA Date: 2023-02-09 15:56Providence HospitalBNPon 39-52-7229Aqltgjrtakb peptide B (Bld) [Mass/Vol]1007.0 pg/mLNormal<=1,800.0[facility] HospitalComment on above:Performed By: #### BNP #### [facility] [address] [place] [address] Dr. Jose David Tian TALI 3-6on 50-24-6213YM [Catalytic activity/Vol]29 U/L Zpdofj15-103Taa [facility] CenterComment on above:Performed By: #### CMREP #### [facility] [address] [place] [address] Dr. Jose David Jacinto.MB [Mass/Vol]0.90 ng/mLNormal<=3.60[facility] Comment on above:Performed By: #### CMREP #### [facility] [address] [place] [address] Dr. Jose David ShanksHSTROP69.4 pg/mLCritically high4.0-51.3The [facility] Comment on above:Result Comment: CUT-OFF POINTS HAVE BEEN ESTABLISHED BASED ON THE FOURTH UNIVERSAL DEFINITIONS OF MYOCARDIAL INFARCTION. THE UPPER REFERENCE LIMIT (URL) OF TROPONIN, DEFINED THE 99TH PERCENTILE OF cTnI DISTRIBUTION IN A REFERENCE POPULATION, HAS BEEN CONFIRMED THE DECISION THRESHOLD FOR VT DIAGNOSIS.Performed By: #### CMREP #### [facility] [address] [place] [address] Dr. Jose David Jacinto [Catalytic activity/Vol]23 U/LCritically afc02-729LvuMercy Health West HospitalComment on above:Performed By: #### CMREP #### [facility] [address] [place] [address] Dr. Jose David Jacinto.MB [Mass/Vol]ng/mLNormal<=3.60The [facility] CenterComment on above:Performed By: #### CMREP #### [facility] [address] [place] [address] Dr. Jose David Peters72.0 pg/mLCritically high4.0-51.3The [facility] Comment on above:Result Comment: CUT-OFF POINTS HAVE BEEN ESTABLISHED BASED ON THE FOURTH UNIVERSAL DEFINITIONS OF MYOCARDIAL INFARCTION. THE UPPER REFERENCE LIMIT (URL) OF TROPONIN, DEFINED THE 99TH PERCENTILE OF cTnI DISTRIBUTION IN A REFERENCE POPULATION, HAS BEEN CONFIRMED THE DECISION THRESHOLD FOR VT DIAGNOSIS.Performed By: #### CMREP #### [facility] [address] [place] [address] Dr. Jose David Tian TALI ADMITon 17-71-1743ZB [Catalytic activity/Vol]31 U/L Cxplcz78-913Kgj [facility] CenterComment on above:Performed By: #### CMADM, BMP #### [facility] [address] [place] [address] Dr. Jose David Jacinto.MB [Mass/Vol]ng/mLNormal<=3.60The [facility] CenterComment on above:Performed By: #### CMADM, BMP #### [facility] [address] [place] [address] Dr. Jose David JamesOP26.3 pg/mLNormal4.0-51.3The [facility] CenterComment on above:Result Comment: CUT-OFF POINTS HAVE BEEN ESTABLISHED BASED ON THE FOURTH UNIVERSAL DEFINITIONS OF MYOCARDIAL INFARCTION. THE UPPER REFERENCE LIMIT (URL) OF TROPONIN, DEFINED THE 99TH PERCENTILE OF cTnI DISTRIBUTION IN A REFERENCE POPULATION, HAS BEEN CONFIRMED THE DECISION THRESHOLD FOR VT DIAGNOSIS.Performed By: #### CMADM, BMP #### [facility] [address] [place] [address] Dr. Jose David RenO52 ng/mLNormal9-82The [facility] CenterComment on above: Performed By: #### CMADM, BMP #### [facility] [address] [place] [address] Dr. Jose David Viera AUTO DIFFon 63-54-9654YAYJ #0.0 103/ulNormal0.0-0.1The [facility] CenterComment on above:Performed By: #### LACT #### [facility] [address] [place], [place] [id number] Dr. Jose David ShanksBasophils/100 WBC (Bld)0.3 %Normal0.2-2.0The [facility] Comment on above:Performed By: #### LACT #### [facility] [address] [place] [address] Dr. Jose David Devries #0.1 103/ulNormal0.0-0.7The [facility] CenterComment on above: Performed By: #### LACT #### [facility] [address] [place] [address] Dr. Jose David Vickersosinophils/100 WBC (Bld)0.5 %Critically low0.9-7.0The [facility] CenterComment on above:Performed By: #### LACT #### [facility] [address] [place] [address] Dr. Jose David Vickersrythrocyte distribution width (RBC) [Ratio]13.4 %Sdfglp70.0-15.0 The [facility] CenterComment on above:Performed By: #### LACT #### [facility] [address] [place] [address] Dr. Jose David ShanksHematocrit (Bld) [Volume fraction]33.0 %Critically low36.0-48.0 The [facility] CenterComment on above:Performed By: #### LACT #### [facility] [address] [place] [address] Dr. Jose David ShanksHemoglobin (Bld) [Mass/Vol]11.1 g/dLCritically low12.0-16.0The [facility] CenterComment on above:Performed By: #### LACT #### [facility] [address] [place] [address] Dr. Jose David Guerrero #0.06 10e3/ulCritically high0.00-0.03The [facility] Comment on above:Performed By: #### LACT #### [facility] [address] [place] [address] Dr. Jose David Guerrero %0.5 %Normal0.0-0.5The [facility] CenterComment on above: Performed By: #### LACT #### [facility] [address] [address] [address] Jose David Rolon #0.8 103/ulCritically low1.2-3.8The [facility] Comment on above:Performed By: #### LACT #### [facility] [address] [place] [address] Dr. Jose David Anthonyhocytes/100 WBC (Bld)7.0 %Critically low20.5-60.0The [facility] CenterComment on above:Performed By: #### LACT #### [facility] [address] [address] [address] Jose David Donovan DIFF REQNONormalThe [facility] CenterComment on above: Performed By: #### LACT #### [facility] [address] [place] [address] Dr. Jose David Turner (RBC) [Entitic mass]29.6 zzDtcbvw57.7-34.0The [facility] Medical CenterComment on above:Performed By: #### LACT #### [facility] [address] [place] [address] Dr. Jose David Turner (RBC) [Mass/Vol]33.6 g/kOEnmxbh55.9-35.2The [facility] CenterComment on above:Performed By: #### LACT #### [facility] [address] [place] [address] Dr. Jose David Turner (RBC) [Entitic vol]88.0 wFTkhmwa06.0-99.0The [facility] CenterComment on above:Performed By: #### LACT #### [facility] [address] [place] [address] Dr. Jose David Horton #0.6 103/ulNormal0.3-0.8The [facility] CenterComment on above:Performed By: #### LACT #### [facility] [address] [place] [address] Dr. Jose David Olivoocytes/100 WBC (Bld)5.4 %Normal1.7-12.0[facility] Comment on above:Performed By: #### LACT #### [facility] [address] [address] [address] Jose David Mix #9.9 103/ulCritically high1.4-6.5[facility] Comment on above:Performed By: #### LACT #### [facility] [address] [place] [address] Dr. Jose David Herndonutrophils/100 WBC (Bld)86.3 %Critically high43.0-75.0The [facility] HospitalComment on above:Performed By: #### LACT #### [facility] [address] [place] [address] Dr. Jose David ShanksPlatelet mean volume (Bld) [Entitic vol]10.1 fLNormal9.5-13.5The [facility] CenterComment on above:Performed By: #### LACT #### [facility] [address] [place] [address] Dr. Jose David ShanksPLT333 103/geWqhkbg441-394Sce [facility] CenterComment on above: Performed By: #### LACT #### [facility] [address] [place] [address] Dr. Jose David ShanksRBC3.75 106/ulCritically low4.20-5.40The [facility] CenterComment on above:Performed By: #### LACT #### [facility] [address] [place] [address] Dr. Jose David ShanksWBC11.5 103/ulCritically high4.0-11.0The [facility] CenterComment on above:Performed By: #### LACT #### [facility] [address] [place] [address] Dr. Jose David Scott BLOODon 23-89-0023Vajrfwdylnv examination of blood, cultureCulture Observations: NO GROWTH AT 5 DAYS.NormalThe [facility] Medical CenterComment on above:Performed By: #### LACT #### [facility] [address] [place] [address] Dr. Jose David ShanksMicroscopic examination of blood, cultureCulture Observations: NO GROWTH AT 5 DAYS.NormalThe Bruno HospitalComment on above:Performed By: #### LACT #### [facility] [address] [address] [address] Jose David PinoCARDIWilliam M/2D COMPLETEon [id number] M/2D COMPLETE Patient: LASHAUN JOAQUIN Exam Date: 02/08/2023 : 1940 Gender:F Ordering : DR ALLI SCOTT . Admission #: [id number] Family : DR NATHAN HATHAWAY D.O. Order #: [id number] CLICK HERE TO VIEW EXAM ECHOCARDIOGRAM REPORT [...] Payne M.D. on 02/09/2023 at 19:11[facility]/LACTIC ACIDon 54-08-3206Hgnizax [Moles/Vol]1.4 mmol/LNormal 0.4-2.0The [facility] CenterComment on above:Performed By: #### LACT #### [facility] [address] [address] [address] Jose David ShanksLactate [Moles/Vol]1.4 mmol/LNormal0.4-2.0[facility] Comment on above:Performed By: #### LACT #### [facility] [address] [place] [address] Dr. Jose David ShanksPROF CHEM 8 (BAS METB)on 55-50-0003Tymft gap [Moles/Vol]11.9 mmol/LNormalThe [facility] CenterComment on above:Performed By: #### CMADM, BMP #### [facility] [address] [place] [address] Dr. Jose David ShanksCalcium [Mass/Vol]9.0 mg/dLNormal8.5-10.1[facility] Comment on above:Performed By: #### CMADM, BMP #### [facility] [address] [place] [address] Dr. Jose David ShanksChloride [Moles/Vol]105 mmol/PZkzpwg74-402Wfx [facility] Comment on above:Performed By: #### CMADM, BMP #### [facility] [address] [place] [address] Dr. Jose David ShanksCO2 [Moles/Vol]28.2 mmol/GCfnhup89.0-32.0[facility] Comment on above:Performed By: #### CMADM, BMP #### [facility] [address] [place] [address] Dr. Jose David ShanksCreatinine [Mass/Vol]0.99 mg/dLNormal0.55-1.02The [facility] CenterComment on above:Performed By: #### CMADM, BMP #### [facility] [address] [place] [address] Dr. Jose David VickersGFR-AF MAURITANIAN>60Normal>=60The [facility] HospitalComment on above:Performed By: #### CMADM, BMP #### [facility] [address] [address] [address] Jose David VickersGFR-NON AF DIBPEPRV33 mL/min/1.31e2Nnqahvoeqr low>=60The [facility] CenterComment on above:Performed By: #### CMADM, BMP #### [facility] [address] [address] [address] Jose David ShanksGlucose [Mass/Vol]123 mg/dLCritically aysf21-967Glz [facility] CenterComment on above:Performed By: #### CMADM, BMP #### [facility] [address] [address] [address] Jose David ShanksPotassium [Moles/Vol]4.1 mmol/LNormal3.5-5.1The [facility] Comment on above:Performed By: #### CMADM, BMP #### [facility] [address] [address] [address] Jose David ShanksSodium [Moles/Vol]141 mmol/UBywdxh358-662Gtw [facility] Comment on above:Performed By: #### CMADM, BMP #### [facility] [address] [address] [address] Jose David ShanksUrea nitrogen [Mass/Vol]14.0 mg/dLNormal7.0-18.0The [facility] CenterComment on above:Performed By: #### CMADM, BMP #### [facility] [address] [address] [address] Jose David Rubio nitrogen/Creatinine [Mass ratio]14.1 mg/mgNormalThe [facility] Medical CenterComment on above:Performed By: #### CMADM, BMP #### [facility] [address] [address] [address] Jose David ShanksRESPIRATORY PANEL PLUSon 43-11-3683ArnduqtyoeQzj detectedNormal NOT DETECTEDThe [facility] Medical CenterComment on above:Performed By: #### RSPLUS #### [facility] [address] [address] [address] Jose David Ann ParapertusisNot detectedNormalNOT DETECTEDThe [facility] Medical CenterComment on above:Performed By: #### RSPLUS #### [facility] [address] [address] [address] Jose David Mccoy. PertussisNot detectedNormalNOT DETECTEDThe [facility] Comment on above:Performed By: #### RSPLUS #### [facility] [address] [address] [address] Jose David ShanksChlamydia PneumoniaeNot detectedNormalNOT DETECTEDThe [facility] CenterComment on above:Performed By: #### RSPLUS #### [facility] [address] [address] [address] Jose David ShanksCoronavirus 229ENot detectedNormalNOT DETECTEDThe [facility] CenterComment on above:Performed By: #### RSPLUS #### [facility] [address] [address] [address] Jose David Sesayronavirus CGI9Hfg detectedNormalNOT DETECTEDThe [facility] CenterComment on above:Performed By: #### RSPLUS #### [facility] [address] [address] [address] Jose David ShanksCoronavirus KW09Hzy detectedNormalNOT DETECTEDThe [facility] CenterComment on above:Performed By: #### RSPLUS #### [facility] [address] [address] [address] Jose David ShanksCoronavirus RM66Ohc detectedNormalNOT DETECTEDThe [facility] CenterComment on above:Performed By: #### RSPLUS #### [facility] [address] [address] [address] Jose David Rangel A H1Not detectedNormalNOT DETECTEDThe [facility] Comment on above:Performed By: #### RSPLUS #### [facility] [address] [address] [address] Jose David Rangel A H1 2009Not detectedNormalNOT DETECTEDThe [facility] CenterComment on above:Performed By: #### RSPLUS #### [facility] [address] [address] [address] Jose David Rangel A H3Not detectedNormalNOT DETECTEDThe [facility] Comment on above:Performed By: #### RSPLUS #### [facility] [address] [address] [address] Jose David Rangel BNot detectedNormalNOT DETECTEDThe [facility] Comment on above:Performed By: #### RSPLUS #### [facility] [address] [address] [address] Jose David AbdullahineumovirusNot detectedNormalNOT DETECTEDThe [facility] CenterComment on above:Performed By: #### RSPLUS #### [facility] [address] [address] [address] Jose David Ha. PneumoniaeNot detectedNormalNOT DETECTEDThe [facility] CenterComment on above:Performed By: #### RSPLUS #### [facility] [address] [address] [address] Jose David Del Toro 1Not detectedNormalNOT DETECTEDThe [facility] CenterComment on above:Performed By: #### RSPLUS #### [facility] [address] [address] [address] Jose David Del Toro 2Not detectedNormalNOT DETECTEDThe [facility] CenterComment on above:Performed By: #### RSPLUS #### [facility] [address] [address] [address] Jose David Del Toro 3Not detectedNormalNOT DETECTEDThe [facility] CenterComment on above:Performed By: #### RSPLUS #### [facility] [address] [address] [address] Jose David Del Toro 4Not detectedNormalNOT DETECTEDThe [facility] CenterCome[facility] on above:Performed By: #### RSPLUS #### [facility] [address] [address] [address] Jose David ShanksRhmelina/EnterovirusNot detectedNormalNOT DETECTEDThe [facility] CenterComment on above:Performed By: #### RSPLUS #### [facility] [address] [address] [address] Jose David Ruff Header 1RESPIRATORY PANEL: [facility]Prov[facility] Comment on above:Performed By: #### RSPLUS #### [facility] [address] [place] [address] Dr. Jose David Ruff Header 2RESPIRATORY PANEL: BACTERIANoMercy Health St. Elizabeth Boardman HospitalComment on above:Performed By: #### RSPLUS #### [facility] [address] [address] [address] Jose David ShanksRSVNot detectedNormalNOT DETECTEDThe [facility] CenterComment on above:Performed By: #### RSPLUS #### [facility] [address] [place] [address] Dr. Jose David Gonzalez-CoV-2 (COVID-19) RNA ZABRINA+probe Ql (Unsp spec)Not detected NormalNOT DETECTEDThe [facility] Medical CenterComment on above:Performed By: #### RSPLUS #### [facility] [address] [place] [address] Dr. Jose David ShanksXR CHEST 1 Von [id number] CHEST 1 VEXAM: XR CHEST 1 V [...] Electronically authenticated by: Petra SAHU Date: 2023-02-08 05:[address] [place], [place] [address]MG MAMM SCREEN 3D SCARLETT CADon [id number] MAMM SCREEN 3D SCARLETT CAD Patient: LASHAUN JOAQUIN Exam Date: 01/08/2023 : 1940 Gender:F Ordering : DR NATHAN HATHAWAY DManuelOManuel Admission #: [id number] Family : Order #: [id number] CLICK HERE TO VIEW EXAM RADIOLOGY REPORT [...] lung cancer at age 62. LOCATION: [facility] BREAST COMPOSITION: Extremely dense, which [...] by: William Dominguez MD on 01/08/2023 at 11:24[facility] ST HEAD_NECKon [id number] HEAD_NECKEXAM: [facility] HEAD_NECK HISTORY: Localized enlarged lymph nodes COMPARISON: [...] Electronically authenticated by: WILLIAM DOMINGUEZ Date: 2022-09-11 17:07[facility] Abdomen and Pelvis W contrast Rivka [id number]: 1. Stable CT of the abdomen and [...] any questions regarding this interpretation, please call [phone]. If you are unable to reach us at the number above, please feel free to contact [facility] at [phone].DIVISION OF RADIOLOGY* * *Final Report* * * DATE OF EXAM: Aug 28 2022 1:36PM [facility] 0530 - CT ABD/PEL W IVCON [...] chest CT performed will be reported separately. Signal Intelligence Analyst (topogram) images: No additional findings. DIVISION OF RADIOLOGYProvider, [facility] [place] - 08/28/2022 * * *Final Report* * * DATE OF EXAM: Aug 28 2022 1:36PM [facility] 0530 - CT ABD/PEL W IVCON [...] chest CT performed will be reported separately. Signal Intelligence Analyst (topogram) images: No additional findings. IMPRESSION IMPRESSION: [...] any questions regarding this interpretation, please call [phone]. If you are unable to reach us at the number above, please feel free to contact [facility] at [phone]. [facility] Abdomen and Pelvis W contrast IVOrdered By: [facility] Provider on 08-90-1026Qkqogiuog ClinicCT Chest W contrast Rivka [id number]: 1. Interval resolution of previously described right [...] any questions regarding this interpretation, please call [phone]. If you are unable to reach us at the number above, please feel free to contact [facility]Radiology at [phone].DIVISION OF RADIOLOGY* * *Final Report* * * DATE OF EXAM: Aug 28 2022 1:36PM [facility] 0539 - CT CHEST W IVCON [...] was performed concurrently and is reported separately. Signal Intelligence Analyst (topogram) images: No additional findings. DIVISION OF RADIOLOGYProvider, [facility] [place] - 08/28/2022 * * *Final Report* * * DATE OF EXAM: Aug 28 2022 1:36PM [facility] 0539 - CT CHEST W IVCON [...] was performed concurrently and is reported separately. Signal Intelligence Analyst (topogram) images: No additional findings. IMPRESSION IMPRESSION: [...] any questions regarding this interpretation, please call [phone]. If you are unable to reach us at the number above, please feel free to contact [facility] at [phone]. [facility] HospitalNo Panel Informationon [id number] Study observation (narrative)[facility] HospitalCovid-19 PCR (CVDTBH)on 05-04-2022 SARS-CoV-2 (COVID-19) RNA ZABRINA+probe Ql (Unsp spec)DetectedCritically abnormalNOT DETECTEDThe [facility] Campus Medical CenterComment on above:Result Comment: This test is not yet approved or cleared by the [place] FDA. When there are no FDA-approved or cleared tests available, and other criteria are met, FDA can make tests available under an emergency access mechanism called an Emergency Use Authorization (EUA). The EUA for this test is supported by the [place] of Health and Human Service's (HHS's) declaration [...] longer be used).Performed By: #### CVDTBH #### [facility] [address] [place] [address] Dr. Jose David Shanks Vital Signs Date TimeVital SignValuePerforming HfpuffumzYftewxrj67-27-6282 11:43-0400Body zxedsj598.02 cmBenjamin Ball DO Work Phone: [phone])[address] [place], [place] 3495210-24-2025 11:43-0400 Body mass index (BMI) [Ratio]34.7 kg/s3Pihvcfjy Ball DO Work Phone: [phone])[address] [place], [place] 3495210-24-2025 11:43-0400 Body .9 kgBenjamin Ball DO Work Phone: 1(419)[address] [place], [place] 3495210-24-2025 11:43-0400 Diastolic blood omwdnsmf41 mm[Hg]Nathan Ball DO Work Phone: 1(419)[address] [place], [place] 3495210-24-2025 11:43-0400 Heart rate62 /minBenjamin Ball DO Work Phone: 1(419)[address] [place], [place] 3495210-24-2025 11:43-0400 Respiratory rate14 /minBenjamin Ball DO Work Phone: [phone])[address] [place], [place] 3495210-24-2025 11:43-0400 SaO2% (BldA) [Mass fraction]98 %Nathan Ball DO Work Phone: [phone])[address] [place], [place] 3495210-24-2025 11:43-0400 Systolic blood mikfqlgz161 mm[Hg]Nathan Ball DO Work Phone: 1(419)[address] [place], [place] 3495210-07-2025 10:44-0400 Body skfxvy459.02 cmBenjamin Ball DO Work Phone: [phone])[address] [place], [place] 3495210-07-2025 10:44-0400 Body mass index (BMI) [Ratio]34.5 kg/h8Hymijjkf Ball DO Work Phone: 1(419)[address] [place], [place] 3495210-07-2025 10:44-0400 Body avsgczoyzyk31.6 [degF]Nathan Ball DO Work Phone: 1419)[address] [place], [place] 3495210-07-2025 10:44-0400 Body ysajhd52.45 kgBenjamin Ball DO Work Phone: 1419)[address] [place], [place] 3495210-07-2025 10:44-0400 Diastolic blood lmeajcnf60 mm[Hg]Nathan Ball DO Work Phone: 1419)[address] [place], [place] 3495210-07-2025 10:44-0400 Heart rate69 /minBenjamin Ball DO Work Phone: [phone])[address] [place], [place] 3495210-07-2025 10:44-0400 SaO2% (BldA) [Mass fraction]96 %Nathan Ball DO Work Phone: 1419)[address] [place], [place] 3495210-07-2025 10:44-0400 Systolic blood twigkavt474 mm[Hg]Nathan Ball DO Work Phone: 1(419)[address] [place], [place] 3495209-23-2025 15:53-0400 Body sybrbt248.37 cmBenjamin Ball DO Work Phone: 1419)[address] [place], [place] 3495209-23-2025 15:53-0400 Body mass index (BMI) [Ratio]31.9 kg/i6Bzrmouab Ball DO Work Phone: 1419)[address] [place], [place] 3495209-23-2025 15:53-0400 Body jggikj23.45 kgBenjamin Ball DO Work Phone: 1(981)[address] [place], [place] 3495209-23-2025 15:53-0400 Diastolic blood uswpyhdz93 mm[Hg]Nathan Ball DO Work Phone: 1419)[address] [place], [place] 3495209-23-2025 15:53-0400 Diastolic blood mm[Hg]Nathan Ball DO Work Phone: 1419)[address] [place], [place] 3495209-23-2025 15:53-0400 Heart rate76 /minBenjamin Ball DO Work Phone: 1419)[address] [place], [place] 3495209-23-2025 15:53-0400 Respiratory rate12 /minBenjamin Ball DO Work Phone: [phone])[address] [place], [place] 3495209-23-2025 15:53-0400 Systolic blood weumietw440 mm[Hg]Nathan Ball DO Work Phone: [facility]09-23-2025 15:53-0400 Systolic blood fzwnuhmc078 mm[Hg]Nathan Hathaway DO Work Phone: [facility]09-10-2025 10:09-0400 Diastolic blood oblfucjx38 mm[Hg]Paolo Casillas APRN.FEED INSPECTION SUPERVISOR Work Phone: [facility] HospitalComment on above:recheck BP [facility] 07-08-2025 10:09-0400Systolic blood mzpvndfa181 mm[Hg]Paolo Casillas APRN.FEED INSPECTION SUPERVISOR Work Phone: [facility] HospitalComment on above:recheck BP [facility] 07-08-2025 10:01-0400Body .4 cmPaolo Casillas APRN.FEED INSPECTION SUPERVISOR Work Phone: [facility]09-10-2025 10:01-0400Body mass index (BMI) [Ratio]33.15 kg/a0GxgdoPaolo Casillas APRN.FEED INSPECTION SUPERVISOR Work Phone: [facility]09-10-2025 10:01-0400Body temperature 96.8 [degF]Paolo Casillas APRN.FEED INSPECTION SUPERVISOR Work Phone: [facility]09-10-2025 10:01-0400Body oeiywx48.8 kgPaolo Casillas APRN.FEED INSPECTION SUPERVISOR Work Phone: [facility]09-10-2025 10:01-0400Heart rate66 /min Paolo Casillas APRN.FEED INSPECTION SUPERVISOR Work Phone: [facility]09-10-2025 10:01-0400Respiratory rate 18 /minPaolo Casillas APRN.FEED INSPECTION SUPERVISOR Work Phone: [facility]09-10-2025 10:01-2934VdF4% (BldA) [Mass fraction]95 %Paolo Casillas APRN.FEED INSPECTION SUPERVISOR Work Phone: [facility]08-22-2025 09:31-0400Body eesxys716.37 cmBenujanairam Hathaway DO Work Phone: 1(419)[address] [place], [place] 3495208-22-2025 09:31-0400 Body mass index (BMI) [Ratio]32.4 kg/w9Ovjkmcgf Ball DO Work Phone: 1419)[address] [place], [place] 3495208-22-2025 09:31-0400 Body .81 kgBenjamin Ball DO Work Phone: 1419)[address] [place], [place] 3495208-22-2025 09:31-0400 Diastolic blood nyuskfrb00 mm[Hg]Nathan Ball DO Work Phone: 1(419)[address]08-22-2025 09:31-0400 Heart rate62 /minBenjamin Ball DO Work Phone: 1419)[address] [place], [place] 3495208-22-2025 09:31-0400 Respiratory rate14 /minBenjamin Ball DO Work Phone: 1419)[address] [place], [place] 3495208-22-2025 09:31-0400 SaO2% (BldA) [Mass fraction]96 %Nathan Ball DO Work Phone: 1419)[address] [place], [place] 3495208-22-2025 09:31-0400 Systolic blood xtzvutga823 mm[Hg]Nathan Ball DO Work Phone: 1(636)[address] [place], [place] 3495207-22-2025 15:33-0400 Body .37 cmBenjamin Ball DO Work Phone: 1(907)[address] [place], [place] 3495207-22-2025 15:33-0400 Body mass index (BMI) [Ratio]31.8 kg/y8Itfyfizv Ball DO Work Phone: 1419)[address] [place], [place] 3495207-22-2025 15:33-0400 Body skcgad44.13 kgBenjamin Ball DO Work Phone: 1419)[address] [place], [place] 3495207-22-2025 15:33-0400 Diastolic blood yedsajqj38 mm[Hg]Nathan Ball DO Work Phone: 1419)[address] [place], [place] 3495207-22-2025 15:33-0400 Heart rate67 /minBenjamin Ball DO Work Phone: [phone])404-[address] [place], [place] 3349807-22-2025 15:33-0400 Respiratory rate14 /minBenjamin Ball DO Work Phone: 1419)[address] [place], [place] 3495207-22-2025 15:33-0400 SaO2% (BldA) [Mass fraction]96 %Nathan Ball DO Work Phone: 1419)[address] [place], [place] 3495207-22-2025 15:33-0400 Systolic blood yfsrkrdm095 mm[Hg]Nathan Ball DO Work Phone: 1419)[address] [place], [place] 3495205-22-2025 11:22-0400 Body nisczz728.37 cmBenjamin Ball DO Work Phone: 1419)[address] [place], [place] 3495205-22-2025 11:22-0400 Body mass index (BMI) [Ratio]31.6 kg/m1Ysxixgrw Ball DO Work Phone: 1419)[address] [place], [place] 3495205-22-2025 11:22-0400 Body yiocsx63.54 kgBenjamin Ball DO Work Phone: 1(419)[address] [place], [place] 3495205-22-2025 11:22-0400 Diastolic blood clqduoct08 mm[Hg]Nathan Ball DO Work Phone: 1(419)[address] [place], [place] 3495205-22-2025 11:22-0400 Heart rate66 /minBenjamin Ball DO Work Phone: 1(419)[address] [place], [place] 3495205-22-2025 11:22-0400 Respiratory rate12 /minBenjamin Ball DO Work Phone: 1(419)[address] [place], [place] 3495205-22-2025 11:22-0400 SaO2% (BldA) [Mass fraction]97 %Nathan Ball DO Work Phone: 1419)[address] [place], [place] 3495205-22-2025 11:22-0400 Systolic blood mm[Hg]Nathan Ball DO Work Phone: 1419)[address] [place], [place] 3495205-20-2025 10:42-0400 Body .1 [facility] [address] [place], [place] 5922105-20-2025 10:42-0400 Body mass index (BMI) [Ratio]33.28 kg/m2Ely [address] [place] [address] 03-17-2025 10:42-0400Body fjymxs03.[address] [place] [address] 03-17-2025 10:42-0400Diastolic blood smibkdhy11 mm[Hg]Laura [address] [place], [place] 5922105-20-2025 10:42-0400Systolic blood bjqyyeze460 mm[Hg][address]05-16-2025 13:25-0400Body zwqeym450.37 cm Nathan Ball DO Work Phone: 1(696)[address]05-16-2025 13:25-0400 Body mass index (BMI) [Ratio]33 kg/r2Grziyulu Ball DO Work Phone: 1(761)[address]05-16-2025 13:25-0400 Body nlzmig88.28 kgBenjamin Ball DO Work Phone: 1(916)437-[address] [place], [place] 3349805-16-2025 13:25-0400 Diastolic blood qtobjhex67 mm[Hg]Nathan Ball DO Work Phone: 1(676)893-[address] [place], [place] 3349805-16-2025 13:25-0400 Heart rate90 /minBenjamin Ball DO Work Phone: 1(957)114-[address] [place], [place] 3349805-16-2025 13:25-0400 Respiratory rate12 /minBenjamin Ball DO Work Phone: 1(985)000-[address] [place], [place] 3349805-16-2025 13:25-0400 Systolic blood xgdhsjgy642 mm[Hg]Nathan Ball DO Work Phone: 1(813)[address]04-30-2025 08:46-0400 Body djoyjt639.1 cmReyna Esparza MD Work Phone: [facility] [facility] SpringsPibbkhpiwi59-32-0664 08:46-0400Body mass index (BMI) [Ratio]32.45 kg/e3ImtqilReyna Esparza MD Work Phone: 1(419)483-[address] [place], [place] [address]Jquvkzgxsm29-23-3874 08:46-0400Body pzfhaf45.45 kgReyna Esparza MD Work Phone: [facility] SpringsWurkjeuonx73-59-0709 08:46-0400Diastolic blood mm[Hg]Reyna Esparza MD Work Phone: [facility] SpringsQmiraljgif83-30-8265 08:46-0400Heart rate72 /min Reyna Esparza MD Work Phone: [facility] SpringsUuwqeczilf23-62-8859 08:46-0400Systolic blood rlaembvh324 mm[Hg]Reyna Esparza MD Work Phone: [facility] SpringsLuhjxgdopc10-97-1323 10:20-0400Diastolic blood nbmecdzj36 mm[Hg]Nathan Ball DO Work Phone: 1(861)[address]04-17-2025 10:20-0400 Heart rate56 /minBenjamin Ball DO Work Phone: 1(035)[address] [place], [place] 3495204-17-2025 10:20-0400 Respiratory rate18 /minBenjamin Ball DO Work Phone: 1(112)[address] [place], [place] 3495204-17-2025 10:20-0400 SaO2% (BldA) [Mass fraction]97 %Nathan Ball DO Work Phone: 1(317)[address] [place], [place] 3495204-17-2025 10:20-0400 Systolic blood mm[Hg]Nathan Ball DO Work Phone: 1(000)996-[address] [place], [place] 3349804-17-2025 06:29-0400 Body yhixbc425.1 cmBenjamin Ball DO Work Phone: 1(767)[facility] [place], [place] 3349804-17-2025 06:29-0400 Body dytljasmepu72.3 [degF]Nathan Ball DO Work Phone: 1(930)[facility] [place], [place] 3349804-17-2025 06:29-0400 Body .9 kgBenjamin Ball DO Work Phone: 1(630)[address] [place], [place] 3495203-27-2025 10:20-0400 Body tcitfh370.37 cmBenjamin Ball DO Work Phone: 1(734)523-02[facility]03-27-2025 10:20-0400 Body mass index (BMI) [Ratio]31.9 kg/g8Aknyohva Ball DO Work Phone: [facility]03-27-2025 10:20-0400 Body qgxlok05.45 kgBenjamin Ball DO Work Phone: 1(426)834-64[facility]03-27-2025 10:20-0400 Diastolic blood xczwiuzz89 mm[Hg]Nathan Ball DO Work Phone: 1(775)693-56[facility]03-27-2025 10:20-0400 Heart rate65 /minBenjamin Ball DO Work Phone: 1(896)860-08[facility]03-27-2025 10:20-0400 Respiratory rate12 /minBenjamin Ball DO Work Phone: 1(182)[phone]03-27-2025 10:20-0400 Systolic blood lthhuckd798 mm[Hg]Nathan Ball DO Work Phone: 1(558)755-16[facility]03-17-2025 11:10-0400 Body kzvabn388.1 cmHolden Rosado SUPERVISOR [employer]FEED INSPECTION SUPERVISOR Work Phone: [phone]([phone]03-17-2025 11:10-0400 Body mass index (BMI) [Ratio]33.28 kg/p5PpyawHolden Rosado SUPERVISOR [employer]FEED INSPECTION SUPERVISOR Work Phone: 1(738)684-[address] [place], [place] 2720703-17-2025 11:10-0400 Body jorrfp44.72 kgHolden Rosado SUPERVISOR [employer]ED INSPECTION SUPERVISOR Work Phone: 1(701)180-[address] [place], [place] 2720703-17-2025 11:10-0400 Diastolic blood afadsdex80 mm[Hg]Holden Rosado SUPERVISOR [employer]FEED INSPECTION SUPERVISOR Work Phone: 1(006)556-[address] [place], [place] 2720703-17-2025 11:10-0400 Heart rate60 /Jasbir Rosado SUPERVISOR [employer]FEED INSPECTION SUPERVISOR Work Phone: 1(040)469-[address] [place], [place] 2720703-17-2025 11:10-0400 Systolic blood jdwythfn103 mm[Hg]Holden Rosado SUPERVISOR [employer]FEED INSPECTION SUPERVISOR Work Phone: [facility]02-18-2025 10:50-0500 Body mnqejb031.37 cmBenjamin Ball DO Work Phone: [facility]02-18-2025 10:50-0500 Body mass index (BMI) [Ratio]32 kg/b8Elfhvksw Ball DO Work Phone: [facility]02-18-2025 10:50-0500 Body bmsyln71.59 kgBenjamin Ball DO Work Phone: [phone]([phone]02-18-2025 10:50-0500 Diastolic blood yupvhlxy92 mm[Hg]Nathan Ball DO Work Phone: 1(767)[phone]02-18-2025 10:50-0500 Heart rate56 /minBenjamin Ball DO Work Phone: 1(882)[phone]02-18-2025 10:50-0500 SaO2% (BldA) [Mass fraction]97 %Nathan Ball DO Work Phone: 1(663)[phone]02-18-2025 10:50-0500 Systolic blood mm[Hg]Nathan Ball DO Work Phone: 1(902)[phone]01-28-2025 13:55-0500 Body .1 cmReyna Esparza MD Work Phone: [facility] SpringsQurcqsnzrz23-74-5259 13:55-0500Body mass index (BMI) [Ratio]32.28 kg/e3UfuvwvReyna Esparza MD Work Phone: [facility] SpringsLezghlkrbn32-22-9070 13:55-0500Body kg Reyna Esparza MD Work Phone: [facility] SpringsJpcqvjvpac60-17-8966 13:55-0500Diastolic blood wxweianj13 mm[Hg]Reyna Esparza MD Work Phone: [facility] SpringsVebhmnfinj31-72-7872 13:55-0500Heart rate60 /min Reyna Esparza MD Work Phone: [facility] SpringsSdswrpnwmd13-80-7453 13:55-0500Systolic blood xrdemziq484 mm[Hg]Reyna Esparza MD Work Phone: [facility] SpringsSaqordqnys20-02-1321 13:05-0500Diastolic blood kvvdqxet22 mm[Hg]Nathan Ball DO Work Phone: 1(603)[address] [place], [place] 3495201-20-2025 13:05-0500 Heart rate68 /minBenjamin Ball DO Work Phone: 1(374)[address] [place], [place] 3495201-20-2025 13:05-0500 Respiratory rate16 /minBenjamin Ball DO Work Phone: 1(509)[address] [place], [place] 3495201-20-2025 13:05-0500 SaO2% (BldA) [Mass fraction]94 %Nathan Ball DO Work Phone: 1(803)[address] [place], [place] 3495201-20-2025 13:05-0500 Systolic blood aecdehrh228 mm[Hg]Nathan Ball DO Work Phone: 1(233)[address] [place], [place] 3495201-20-2025 10:05-0500 Body .37 cmBenjamin Ball DO Work Phone: 1(923)[address] [place], [place] 3495201-20-2025 10:05-0500 Body xqmuwb56.35 kgBenjamin Ball DO Work Phone: 1(249)[address] [place], [place] 3495212-11-2024 10:40-0500 Body omjfvk127.1 cmWilliam Orlando DO Work Phone: [facility]12-11-2024 10:40-0500 Body mass index (BMI) [Ratio]33.12 kg/m8Eldgzfg Orlando DO Work Phone: [facility]12-11-2024 10:40-0500 Body .27 kgWilliam Orlando DO Work Phone: [facility]12-11-2024 10:40-0500 Diastolic blood vnslehyk54 mm[Hg]Edinson Perry DO Work Phone: [facility]12-11-2024 10:40-0500 Heart rate78 /Frieda Perry DO Work Phone: [facility]12-11-2024 10:40-0500 Systolic blood gsjveypr076 mm[Hg]Edinson Perry DO Work Phone: [facility]11-14-2024 10:19-0500 Body anmnwm048.1 cm[facility]11-14-2024 10:19-0500Body mass index (BMI) [Ratio]32.3 kg/g7ExckfyljvMary [facility]an Hospital11-14-2024 10:19-0500Body ucejvy80.13 kgMary [facility] Hospital11-14-2024 10:19-0500Diastolic blood mm[Hg][facility] 09-11-2024 10:19-0500Heart rate63 /minMary [facility] 09-11-2024 10:19-6897VzG1% (BldA) [Mass fraction]97 %[facility]11-14-2024 10:19-0500Systolic blood susmvvaq757 mm[Hg][facility]08-06-2024 10:54-0400Body irtwxk755.1 cmDO Incentive Work Phone: [facility]08-06-2024 10:54-0400 Body mass index (BMI) [Ratio]26.8 kg/m2DO Nathan Ball Work Phone: [facility]08-06-2024 10:54-0400 Body .02 kgDO Nathan Overcart Work Phone: [facility]08-06-2024 10:54-0400 Diastolic blood dzcuwhby84 mm[Hg]DO Nathan Ball Work Phone: [facility]08-06-2024 10:54-0400 Heart rate56 /Emerald Hathaway Work Phone: [facility]08-06-2024 10:54-0400 Respiratory rate12 /Emerald Hathaway Work Phone: [facility]08-06-2024 10:54-0400 Systolic blood iysrsity457 mm[Hg]DO Nathan Hathaway Work Phone: [facility]06-24-2024 10:21-0400 Body mass index (BMI) [Ratio]32.98 kg/o4YuzmnHolden Rosado SUPERVISOR [employer]FEED INSPECTION SUPERVISOR Work Phone: [facility]06-24-2024 10:21-0400 Body htfsbi52.9 kgHolden Rosado SUPERVISOR [employer]FEED INSPECTION SUPERVISOR Work Phone: 1(085)440-[address] [place], [place] 2720706-24-2024 10:21-0400 Diastolic blood wzliwjtn10 mm[Hg]Holden Rosado SUPERVISOR [employer]FEED INSPECTION SUPERVISOR Work Phone: [facility]06-24-2024 10:21-0400 Heart rate60 /Tetonorth Alonzo SUPERVISOR [employer]FEED INSPECTION SUPERVISOR Work Phone: [facility]06-24-2024 10:21-0400 Systolic blood baotttxv673 mm[Hg]Holden Rosado SUPERVISOR [employer]FEED INSPECTION SUPERVISOR Work Phone: [facility]05-15-2024 09:27-0400 Diastolic blood dllguvss77 mm[Hg]Laura [address] [place] [address] 03-12-2024 09:27-0400Heart rate62 /minEly [address] [place] [address] 03-12-2024 09:27-0400Systolic blood efkctmvj791 mm[Hg]Laura [address] [place], [place] 4982005-08-2024 11:46-0400Body dykrja878.1 cmHolden Rosado SUPERVISOR [employer]FEED INSPECTION SUPERVISOR Work Phone: [facility]05-08-2024 11:46-0400 Body mass index (BMI) [Ratio]32.62 kg/l7OppieHolden Rosado SUPERVISOR [employer]FEED INSPECTION SUPERVISOR Work Phone: [facility]05-08-2024 11:46-0400 Body wchoys94.91 kgHolden Rosado SUPERVISOR [employer]FEED INSPECTION SUPERVISOR Work Phone: [facility]05-08-2024 11:46-0400 Diastolic blood byhbacmz49 mm[Hg]Holden Rosado SUPERVISOR [employer]PAR[employer]FEED INSPECTION SUPERVISOR Work Phone: [facility]05-08-2024 11:46-0400 Heart rate62 /Brittneyfausto Rosado SUPERVISOR [employer]PAR[employer]FEED INSPECTION SUPERVISOR Work Phone: [facility]05-08-2024 11:46-0400 Systolic blood mm[Hg]Holden Rosado SUPERVISOR [employer]PAR[employer]FEED INSPECTION SUPERVISOR Work Phone: [facility]05-01-2024 09:53-0400 Body scrwuy158.1 cmDO Nathan Ball Work Phone: 1(045)277[facility]06[facility]05-01-2024 09:53-0400 Body mass index (BMI) [Ratio]31.9 kg/m2DO Nathan Ball Work Phone: 1(578)515-[address] [place], [place] 3349805-01-2024 09:53-0400 Body .08 kgDO Nathan Ball Work Phone: 1(450)022-[address] [place], [place] 3349805-01-2024 09:53-0400 Diastolic blood tmyrlars23 mm[Hg]DO Nathan Ball Work Phone: 1(978)[phone]05-01-2024 09:53-0400 Heart rate62 /minDO Nathan Ball Work Phone: [phone]([phone]05-01-2024 09:53-0400 SaO2% (BldA) [Mass fraction]97 %DO Nathan Ball Work Phone: [phone]05-01-2024 09:53-0400 Systolic blood cammwspw570 mm[Hg]DO Nathan Ball Work Phone: [phone])[phone]04-17-2024 10:30-0400 Body vpuxua164.1 cm[facility]04-17-2024 10:30-0400Body mass index (BMI) [Ratio]32.8 kg/n5PewscdwtlMary [facility] Hospital04-17-2024 10:30-0400Body .35 kgMary [facility]04-17-2024 10:30-0400Diastolic blood ounagzqr25 mm[Hg][facility] 02-13-2024 10:30-0400Heart rate56 /[facility] 02-13-2024 10:30-5466JpQ7% (BldA) [Mass fraction]98 %[facility]04-17-2024 10:30-0400Systolic blood kuwgtrrh629 mm[Hg][facility]04-05-2024 11:01-0400Body bihyaq596.1 cm[facility]04-05-2024 11:01-0400Body mass index (BMI) [Ratio]27.3 kg/n7ThudfuiqhMary [facility]an Hospital04-05-2024 11:01-0400Body phrzyu85.44 kgMary [facility]04-05-2024 11:01-0400Diastolic blood bqoiguiw40 mm[Hg] [facility]04-05-2024 11:01-0400Heart rate49 /[facility]04-05-2024 11:01-0400Respiratory rate12 /[facility]04-05-2024 11:01-0400Systolic blood nqfudncg249 mm[Hg] [facility]01-05-2024 11:00-0500Body ofagrq745.1 cm Nathan Isabela Other [employer] Other 01-05-2024 11:00-0500Body mass index (BMI) [Ratio] 31.78 kg/z4Josyycte Ball Other [employer] Other 01-05-2024 11:00-0500Body siyenp86.64 kgBenjamin Ball Other [employer] Other 01-05-2024 11:00-0500Diastolic blood qxezfltk72 mm[Hg] Nathan Ball Other [employer] Other 01-05-2024 11:00-0500Respiratory rate16 /minBenjamin Ball Other [employer] Other 01-05-2024 11:00-0500Systolic blood stkmlewi290 mm[Hg] Nathan Ball Other [employer] Other 12-05-2023 09:45-0500Body wautxc990.1 cmBenjamin Ball Other [employer] Other 12-05-2023 09:45-0500Body mass index (BMI) [Ratio] 31.61 kg/e9Zrkzujmm Ball Other [employer] Other 12-05-2023 09:45-0500Body diycof09.18 kgBenjamin Ball Other [employer] Other 12-05-2023 09:45-0500Diastolic blood xwjzsbot12 mm[Hg] Nathan Ball Other [employer] Other 12-05-2023 09:45-0500Respiratory rate12 /minBenjamin Ball Other [employer] Other 12-05-2023 09:45-0500Systolic blood fxsynzic371 mm[Hg] Nathan Ball Other [employer] Other 08-11-2023 11:15-0400Body .1 cmBenjamin Ball Other [employer] Other 08-11-2023 11:15-0400Body mass index (BMI) [Ratio] 32.95 kg/l6Siiyditp Ball Other [employer] Other 08-11-2023 11:15-0400Body cnomgq77.81 kgBeesa Hathaway Other [employer] Other 08-11-2023 11:15-0400Diastolic blood qzydyftq88 mm[Hg] Nathan Hathaway [facility] Other 08-11-2023 11:15-0400Respiratory rate12 /minBeesa Hathaway Other [facility] Other 08-11-2023 11:15-0400Systolic blood vsruldol990 mm[Hg] Nathan Hathaway Other [facility] [employer] Other 08-07-2023 13:51-0400Body tabggxfxxux09.7 [degF]Luis Mckenzie MD Work Phone: [facility]08-07-2023 13:51-0400Body aiirrs88.99 kgLuis Mckenzie MD Work Phone: [facility]08-07-2023 13:51-0400Diastolic blood lephzedn20 mm[Hg]Luis Mckenzie MD Work Phone: [facility]08-07-2023 13:51-0400Heart rate56 /min Luis Mckenzie MD Work Phone: [facility]08-07-2023 13:51-0400Respiratory rate 18 /minLuis Mckenzie MD Work Phone: [facility]08-07-2023 13:51-1814VqZ1% (BldA) [Mass fraction]98 %Luis Mckenzie MD Work Phone: [facility]08-07-2023 13:51-0400Systolic blood xebvnjxd181 mm[Hg]Luis Mckenzie MD Work Phone: [facility]07-28-2023 11:15-0400Body indkml072.1 cmBenjamin Ball Other [facility] Other 07-28-2023 11:15-0400Body mass index (BMI) [Ratio] 32.86 kg/l5Smfqdons Ball Other [employer] Other 07-28-2023 11:15-0400Body .59 kgBenjamin Ball Other [employer] Other 07-28-2023 11:15-0400Diastolic blood oegxrkuw13 mm[Hg] Nathan Ball Other [employer] Other 07-28-2023 11:15-0400Respiratory rate16 /minBenjamin Ball Other [employer] Other 07-28-2023 11:15-0400Systolic blood uohzdjhw375 mm[Hg] Nathan Ball Other [employer] Other 07-21-2023 15:30-0400Body cicevnxnpvl24.7 [degF]DO Nathan Ball Work Phone: [facility]07-21-2023 15:30-0400 Diastolic blood hfixrkch79 mm[Hg]DO Nathan Ball Work Phone: [facility]07-21-2023 15:30-0400 Heart rate62 /minDO Nathan Ball Work Phone: [facility]07-21-2023 15:30-0400 Respiratory rate16 /minDO Nathan Ball Work Phone: [facility]07-21-2023 15:30-0400 SaO2% (BldA) [Mass fraction]95 %DO Nathan Overcart Work Phone: [facility]07-21-2023 15:30-0400 Systolic blood dhmwutdi313 mm[Hg]DO Nathan Overcart Work Phone: [facility]07-21-2023 05:39-0400 Body .1 kgDO Nathan Overcart Work Phone: [facility]07-20-2023 20:00-0400 Inhaled oxygen flow rate1.5 L/minDO Nathan Overcart Work Phone: [facility]07-20-2023 15:54-0400 Body phjypj171.72 cmDO Nathan Overcart Work Phone: [facility]07-19-2023 11:30-0400 Body zhsfai247.1 cmBenjamin Ball Other [employer] Other 07-19-2023 11:30-0400Body mass index (BMI) [Ratio] 33.28 kg/n6Qjfrafoa Ball Other [employer] Other 07-19-2023 11:30-0400Body niiesk12.72 kgBenjamin Ball Other [employer] Other 07-19-2023 11:30-0400Diastolic blood dkdjzmbu07 mm[Hg] Nathan Ball Other [employer] Other 07-19-2023 11:30-0400Respiratory rate16 /minBenjamin Ball Other [employer] Other 07-19-2023 11:30-0400Systolic blood dvbretsd925 mm[Hg] Nathan Ball Other [employer] Other 07-12-2023 11:15-0400Body oxytyw213.1 cmBenjamin Ball Other [employer] Other 07-12-2023 11:15-0400Body mass index (BMI) [Ratio] 32.75 kg/k0Igncckaq Ball Other [employer] Other 07-12-2023 11:15-0400Body kkzcef23.27 kgBenjamin Ball Other [employer] Other 07-12-2023 11:15-0400Diastolic blood qpetuojc01 mm[Hg] Nathan Ball Other [employer] Other 07-12-2023 11:15-0400Respiratory rate16 /minBenjamin Ball Other [employer] Other 07-12-2023 11:15-2041TfV8% (BldA) [Mass fraction]98 % Nathan Ball Other [employer] Other 07-12-2023 11:15-0400Systolic blood bttkfbru485 mm[Hg] Nathan Ball Other [employer] Other 06-29-2023 11:30-0400Body .1 cmBenjamin Ball Other [employer] Other 06-29-2023 11:30-0400Body mass index (BMI) [Ratio] 32.53 kg/l5Owyfoyhs Ball Other [employer] Other 06-29-2023 11:30-0400Body orpyis52.68 kgBenjamin Ball Other [employer] Other 06-29-2023 11:30-0400Diastolic blood cbdobnjw18 mm[Hg] Nathan Ball Other [employer] Other 06-29-2023 11:30-0400Respiratory rate16 /minBenjamin Ball Other [employer] Other 06-29-2023 11:30-0400Systolic blood lagnpdrz782 mm[Hg] Nathan Ball Other [employer] Other 06-21-2023 09:45-0400Body okntqw451.1 cmBenjamin Ball Other [employer] Other 06-21-2023 09:45-0400Body mass index (BMI) [Ratio] 33.28 kg/r9Fbgkupjr Ball Other [employer] Other 06-21-2023 09:45-0400Body .72 kgBenjamin Ball Other [employer] Other 06-21-2023 09:45-0400Diastolic blood iijjrpyd61 mm[Hg] Nathan Ball Other [employer] Other 06-21-2023 09:45-0400Respiratory rate20 /minBenjamin Ball Other [employer] Other 06-21-2023 09:45-6634ZuH7% (BldA) [Mass fraction]98 % Nathan Ball Other [employer] Other 06-21-2023 09:45-0400Systolic blood padxajxq003 mm[Hg] Nathan Ball Other [employer] Other 05-18-2023 10:45-0400Body bivrko692.1 cmBenjamin Ball Other [employer] Other 05-18-2023 10:45-0400Body mass index (BMI) [Ratio] 31.95 kg/x5Ykbzbtbu Ball Other [employer] Other 05-18-2023 10:45-0400Body okpesp29.09 kgBenjamin Ball Other [employer] Other 05-18-2023 10:45-0400Diastolic blood qoznxghj89 mm[Hg] Nathan Ball Other [employer] Other 05-18-2023 10:45-0400Respiratory rate16 /minBenjamin Ball Other [employer] Other 05-18-2023 10:45-0400Systolic blood vdepjaen132 mm[Hg] Nathan Ball Other [employer] Other 05-12-2023 17:00-0400Body igrejwyjaik13.9 [degF]DO Nathan Ball Work Phone: [facility]05-12-2023 17:00-0400 Diastolic blood zzeavhqb60 mm[Hg]DO Nathan Ball Work Phone: [facility]05-12-2023 17:00-0400 Heart rate54 /minDO Nathan Ball Work Phone: [facility]05-12-2023 17:00-0400 Respiratory rate16 /minDO Nathan Ball Work Phone: [facility]05-12-2023 17:00-0400 SaO2% (BldA) [Mass fraction]96 %DO Nathan Ball Work Phone: [facility]05-12-2023 17:00-0400 Systolic blood hwyppghv248 mm[Hg]DO Nathan Ball Work Phone: [facility]05-12-2023 08:11-0400 Body vqnyjv630.1 cmDO Nathna Ball Work Phone: [phone]05-12-2023 08:11-0400 Body kalxrj68 kgDO Nathan Ball Work Phone: [phone](271)[phone]05-10-2023 10:14-0400 Diastolic blood xuhwmkly87 mm[Hg]Nathan E Ball Work Phone: 1(108) [phone]-Chxxk [facility] DO Work Phone: 1(557) 172-199605-10-2023 10:14-0400Systolic blood gdniabre412 mm[Hg] Nathan E Ball Work Phone: 1(627) [phone]-Rigrr [facility] [address] DO Work Phone: 1(165)814-652-946563-04 10:04-0400Body irktrd407.1 cmBenjamin E Ball Work Phone: 1(473) [phone]-Jbgpd [facility] [address] DO Work Phone: 1(281) 805-901705-10-2023 10:04-0400Body mass index (BMI) [Ratio] 33.95 kg/k3Srkrvrzb E Ball Work Phone: 1(865) [phone]-Iwrzc [facility] [address] DO Work Phone: 1(884) 577-603305-10-2023 10:04-0400Body surface area Derived from formula1.99 k7Vvurwgdk E Ball Work Phone: 1(332) [phone]-Dxagm [facility] DO Work Phone: 1(308) 114-832905-10-2023 10:04-0400Body ugxgen77.53 kgBenjamin E Ball Work Phone: 1(117) [phone]-Jqlyn [facility] DO Work Phone: 1(853) 514-518205-10-2023 10:04-0400Diastolic blood zoukybib12 mm[Hg] Nathan E Ball Work Phone: [phone]-Rfxyu [place] [facility] [address] DO Work Phone: 1(861) 109-744605-10-2023 10:04-0400Heart rate45 /minBenjamin E Ball Work Phone: [phone]-Zhyuq [place] [facility] [address] DO Work Phone: 1(304) 328-344105-10-2023 10:04-0400Systolic blood nnomwodx695 mm[Hg] Nathan E Ball Work Phone: [phone]-Tqyvk [place] [employer] [address] DO Work Phone: 1(559) 635-521704-19-2023 11:15-0400Body hipqjx710.1 cmBenjamin Ball Other [employer] Other 04-19-2023 11:15-0400Body mass index (BMI) [Ratio] 32.61 kg/k7Rhecfrkn Ball Other [employer] Other 04-19-2023 11:15-0400Body .91 kgBenjamin Ball Other [employer] Other 04-19-2023 11:15-0400Diastolic blood mm[Hg] Nathan Ball Other [employer] Other 04-19-2023 11:15-0400Respiratory rate12 /minBenjamin Ball Other [employer] Other 04-19-2023 11:15-0400Systolic blood bkefsmbs448 mm[Hg] Nathan Ball Other [employer] Other 04-07-2023 12:15-0400Body avhcxn103.1 cmBenjamin Ball Other [employer] Other 04-07-2023 12:15-0400Body mass index (BMI) [Ratio] 32.78 kg/x2Azmlxopd Ball Other [employer] Other 04-07-2023 12:15-0400Body ertjjy49.36 kgBenjamin Ball Other [employer] Other 04-07-2023 12:15-0400Diastolic blood mm[Hg] Nathan Ball Other [employer] Other 04-07-2023 12:15-0400Respiratory rate12 /minBenjamin Ball Other [employer] Other 04-07-2023 12:15-0400Systolic blood ezyehcvq943 mm[Hg] Nathan Ball Other [employer] Other 02-16-2023 10:00-0500Body lxbsyl547.1 cmBenjamin Ball Other [employer] Other 02-16-2023 10:00-0500Body mass index (BMI) [Ratio] 32.53 kg/q1Mlxlukoy Ball Other [employer] Other 02-16-2023 10:00-0500Body mveqne42.68 kgBenjamin Ball Other [employer] Other 02-16-2023 10:00-0500Diastolic blood orxxvgzv25 mm[Hg] Nathan Ball Other [employer] Other 02-16-2023 10:00-0500Respiratory rate12 /minBenjamin Ball Other [employer] Other 02-16-2023 10:00-0500Systolic blood uajxnxor233 mm[Hg] Nathan Hathaway Other [employer] Other 02-06-2023 13:25-0500Body ldghie824.4 cmLuis Mckenzie MD Work Phone: [facility]02-06-2023 13:25-0500Body temperature 97.11 [degF]Luis Mckenzie MD Work Phone: [facility]02-06-2023 13:25-0500Body upmjcw02.36 kgLuis Mckenzie MD Work Phone: [facility]02-06-2023 13:25-0500Diastolic blood bgszecrm65 mm[Hg]Luis Mckenzie MD Work Phone: [facility]02-06-2023 13:25-0500Heart rate63 /min Luis Mckenzie MD Work Phone: [facility]02-06-2023 13:25-0500Respiratory rate 16 /minLuis Mckenzie MD Work Phone: [facility]02-06-2023 13:25-2826GgT5% (BldA) [Mass fraction]96 %Luis Mckenzie MD Work Phone: [facility]02-06-2023 13:25-0500Systolic blood mm[Hg]Luis Mckenzie MD Work Phone: [facility]01-17-2023 15:00-0500Body .1 cmBenjamin Ball Other [facility] [employer] Other 01-17-2023 15:00-0500Body mass index (BMI) [Ratio] 32.53 kg/y1Horekeiw Ball Other [facility] [employer] Other 01-17-2023 15:00-0500Body dbtrky58.68 kgBenjamin Ball Other [facility] [employer] Other 01-17-2023 15:00-0500Diastolic blood uygjoewi77 mm[Hg] Nathan Hathaway Other [facility] [employer] Other 01-17-2023 15:00-0500Respiratory rate12 /minNathan Hathaway Other [facility] [employer] Other 01-17-2023 15:00-0500Systolic blood asyvgpmr763 mm[Hg] Nathan Hathaway Other [facility] [employer] Other 08-01-2022 10:06-0400Body ducvja312.4 cmLuis Mckenzie MD Work Phone: [facility]08-01-2022 10:06-0400Body temperature 97.59 [degF]Luis Mckenzie MD Work Phone: [facility]08-01-2022 10:06-0400Body .72 kgLuis Mckenzie MD Work Phone: [facility]08-01-2022 10:06-0400Diastolic blood nemjzgrq59 mm[Hg]Luis Mckenzie MD Work Phone: [facility]08-01-2022 10:06-0400Heart rate50 /min Luis Mckenzie MD Work Phone: [facility]08-01-2022 10:06-0400Respiratory rate 16 /minLuis Mckenzie MD Work Phone: [facility]08-01-2022 10:06-4155KlU8% (BldA) [Mass fraction]96 %Luis Mckenzie MD Work Phone: [facility]08-01-2022 10:06-0400Systolic blood lsukdzxb055 mm[Hg]Luis Mckenzie MD Work Phone: [facility] Encounters Encounter DateEncounter TypeCare ProviderFacilityStart: 10-26-2157yqhgdamids Eber Campos JOSE DFacility:HESHAM BellevueStart: 08-21-2025 End: 95-50-7235uhbdtlolbfZpukzgtw Ball DO Work Phone: -[facility] ClinicStart: 08-21-2025 End: 67-53-5496Qjqmndv encounter procedureBenalberta Hathaway DO-[facility] Work Phone: Start: 08-19-2025 End: 17-95-2528Xvavsnc encounter procedureKaia Krishna SUPERVISOR SHUTTLE PREPARATION-Ultrasound [facility] Work Phone: Start: 08-19-2025 End: 04-77-2459bxqgchrnbdTxemwbbg Ball DO Work Phone: [phone]-UemmtzxuwfMethodist Hospital Of Southern CaliforniaStart: 55-92-7016Gzj-patient / Non-visitCatherine Sebastian [facility] Work Phone: Start: 72-50-3887Ytc-patient / Non-visitAgueda Saul MD-[facility] Work Phone: Start: 92-57-7364Ptb-patient / Non-visitAgueda Saul MD-[facility] Work Phone: Start: 29-06-0303Eex-patient / Non-visitSeth Baker DO-[facility] Work Phone: Start: 47-53-4599Gkb-patient / Non-visitCatine Sebastian [facility] Work Phone: Start: 67-28-9678Vdg-patient / Non-visitAgueda Saul MD-[facility] Work Phone: Start: 99-95-9914Vrf-patient / Non-visitCher Singh DO-[facility] Work Phone: Start: 08-04-2025 End: 03-99-8417fgdmzfxdpvIwwgnzum Ball DO Work Phone: [facility] Work Phone: Start: 08-04-2025 End: 79-84-3062Equwuas encounter Armando Krishna APRN-[facility] Work Phone: Start: 07-21-2025 End: 47-05-9259mubsangvkvQiqgyyld Ball DO Work Phone: [facility] Work Phone: Start: 07-21-2025 End: 31-07-0625Uumqgie encounter procedureNathan Hathaway DO-[facility] Work Phone: Start: 65-39-9159Vfy-patient / Non-visitValentin Leonard MD-[facility] [employer] [facility] Work Phone: Start: 07-15-2025 End: 62-64-9177lppvyxljbgIMAHFMZH E BALLFacility:[facility] Centertart: 07-10-2025 End: 10-95-7738Mfaueovyf encounterValentin Leonard MD Work Phone: Cancer Appts MCComment on above:Orders; Patient Update Start: 07-08-2025 End: 81-49-6468Ufbcssawd encounterPaolo Casillas APRN.FEED INSPECTION SUPERVISOR Work Phone: Cancer Appts MCComment on above:ResultsStart: 07-08-2025 End: 32-22-5807Hktpqom encounter procedurePaolo Casillas APRN.FEED INSPECTION SUPERVISOR Work Phone: Hematology/OncologyStart: 53-77-5100Vwd-patient / Non-visitFanny Bedoya APRN, NP-C-[facility] [employer] [facility] Work Phone: Start: 07-08-2025 End: 46-75-8610mrxhikwnlzGrowcVaibhav Casillas APRN.FEED INSPECTION SUPERVISOR Work Phone: Hematology/OncologyComment on above:Abnormal SPEP (Primary Dx); Primary hypertension; Hyperlipidemia, unspecified hyperlipidemia type; Heart disease; Edema, unspecified type; Monoclonal gammopathy of undetermined significance; Anemia in other chronic diseases classified elsewhereStart: 07-06-2025 End: 27-58-5200Dypbyvbfm encounterPaolo Casillas APRN.FEED INSPECTION SUPERVISOR Work Phone: Hematology/OncologyComment on above:Lab Orders (nt) Start: 51-49-7671Lmt-patient / Non-visitBenjamin Ball DO-[facility] Work Phone: Start: 69-20-2597Bdn-patient / Non-visitBenjamin Ball DO-[facility] Work Phone: Start: 06-19-2025 End: 29-75-2279jgnopytqywKfcflfax Ball DO Work Phone: [facility] Work Phone: Start: 06-19-2025 End: 64-72-8478Yzbykdq encounter procedureBenjamin Ball DO-[facility] Work Phone: Start: 05-19-2025 End: 48-36-6589njiesoyshgFyjijphg Ball DO Work Phone: [facility] Work Phone: Start: 05-19-2025 End: 56-33-5330Bpmgggi encounter procedureBenjamin Ball DO-[facility] Work Phone: Start: 03-19-2025 End: 24-32-5649ligexikmwwBdzdtcha Ball DO Work Phone: [facility] Work Phone: Start: 03-19-2025 End: 86-82-9910Drazufg encounter procedureBenjamin Ball DO Work Phone: [facility] Work Phone: Start: 20-02-3984Vhh-patient / Non-visitBenjamin Ball DO Work Phone: [facility] Work Phone: Start: 03-17-2025 End: 73-77-5037Uoqpmzxlkk hospital visit by physicianLaura Blair Echo/Vasc Room 2M[facility]y HospitalComment on above:Essential hypertension; PalpitationsStart: 03-17-2025 End: 95-54-7559uiyxpbvhdjGOAZE K [facility] Start: 03-13-2025 End: 54-45-2172Nuiprsg encounter procedureNathan Hathaway DO Work Phone: [facility] Work Phone: Start: 02-25-2025 End: 58-48-1118Skukho flowsheetReyna Esparza MD Work Phone: [facility] CI ENTStart: 02-25-2025 End: 53-67-1536Eqsbsc flowsheetReyna Esparza MD Work Phone: [facility] CI ENTStart: 02-25-2025 End: 19-06-6949Wvebqt outpatient visit 15 minutesReyna Esparza MD Work Phone: n[facility] CI ENTComment on above:Nontoxic multinodular goiter (CMS/HCC) (Primary Dx)Start: 02-25-2025 End: 16-72-1494sfcnkxnrsaUQLAVB H TIMMISNot AvailableStart: 02-12-2025 End: 02-21-1578Srxwxvuty department patient visitNathan Hathaway DO Work Phone: [facility] Work Phone: Start: 02-10-2025 End: 88-60-4166Grschxoix Result EncounterReyna Esparza MD Work Phone: noms External Department UnsolicitedStart: 02-10-2025 End: 79-56-2644Rpmgkcivf Result EncounterReyna Esparza MD Work Phone: noms External Department UnsolicitedStart: 01-26-2025 End: 06-40-2590djhlkeiobxYRLCKEvans Memorial Hospital AmbulatoryStart: 29-55-7661Whe-patient / Non-visitBenjamin Ball DO Work Phone: [facility] Work Phone: Start: 01-22-2025 End: 15-46-9285zwifwelmomJvwajyao Ball DO Work Phone: [facility] Work Phone: Start: 01-22-2025 End: 21-77-4833Kahzbmg encounter procedureBenjamin Ball DO Work Phone: [facility] Work Phone: Start: 01-12-2025 End: 24-96-9601Muieky outpatient visit 25 [facility] Work Phone: [facility] North AlabamaComment on above:BMI 33.0-33.9,adult (Primary Dx); Essential hypertension; Palpitations; ASHD (arteriosclerotic heart disease); Mixed hyperlipidemiaStart: 01-12-2025 End: 12-92-2915jpugybxqffMRDHVMonroe County Hospital AmbulatoryStart: 12-29-2024 End: 72-04-9913chlfrknftyAkyxbejz Ball DO Work Phone: [facility] Work Phone: Start: 12-29-2024 End: 48-07-7678Wpgfpax encounter procedureBenjamin Ball DO Work Phone: [facility] Work Phone: Start: 1942Gwa-patient / Non-visitBenjamin Ball DO Work Phone: [facility] Work Phone: Start: 12-16-2024 End: 36-01-6180Pvsuqlj encounter procedureBenjamin Ball DO Work Phone: [facility] Work Phone: Start: 11-25-2024 End: 55-87-4100Clojja Zoraida Esparza MD Work Phone: [facility] CI ENTStart: 11-25-2024 End: 93-78-9061Skodig Zoraida Esparza MD Work Phone: [facility] CI ENTStart: 11-25-2024 End: 18-48-5033Qlfhbf outpatient new 45 minutesReyna Esparza MD Work Phone: [facility] CI ENTComment on above:Thyroid nodule (CMS/HCC) (Primary Dx)Start: 11-25-2024 End: 93-51-5023fwyjbfypeqURSNUI H TIMMISNot AvailableStart: 83-68-6997qeyubbbwhz Nathan Ball DO Work Phone: [facility] Work Phone: Start: 04-71-4392Mik-patient / Non-visitBenjuanmin Ball DO Work Phone: [facility] Physician [facility] Work Phone: Start: 11-17-2024 End: 70-16-0440Rihiytfen to same day surgery centerBenalberta Ball DO Work Phone: [facility]-Ultrasound Main [place] Work Phone: Start: 11-17-2024 End: 72-37-3886znfziusxmyMkusjupe Ball DO Work Phone: [facility] Work Phone: Start: 10-09-2024 End: 07-01-2417KmpimnLebctzoStephanie Braxton COT Work Phone: noms NB OPHTStart: 10-08-2024 End: 40-14-7161Xmvwqw outpatient visit 25 minutesWihelena Perry DO Work Phone: uh FirelandsComment on above:ASHD (arteriosclerotic heart disease); Essential hypertension; BMI 33.0-33.9,adult; Former smoker; S/P PTCA (percutaneous transluminal coronary angioplasty); Mixed hyperlipidemia; Coronary arteriosclerosis after percutaneous transluminal coronary angioplasty (PTCA)Start: 10-08-2024 End: 38-26-8972zjmgtguahyQZAZGJLFloyd [facility]k Medical Center AmbulatoryStart: 60-51-7567Gnw-patient / Non-visitBenjuanbon [facility] Isabela DO Work Phone: [facility] Work Phone: Start: 09-11-2024 End: 86-12-5013ipfhtyonpsTxehlyvuzSelect [facility] Work Phone: Start: 09-11-2024 End: 67-54-4947Agbxmkg encounter procedureHigh[facility] Work Phone: Start: 14-78-4165Orn-patient / Non-visitF[facility]vcu [facility] Work Phone: Start: 07-16-2024 End: 32-90-8872xwhsztbzsjXznlygxisSelect [facility] Work Phone: Start: 07-16-2024 End: 66-77-7791Wdhljis encounter procedureHigh[facility] Work Phone: Start: 06-03-2024 End: 29-34-1105hsognwuirfNG [facility] Work Phone: [facility] Work Phone: Start: 06-03-2024 End: 60-44-6511Udkkvls encounter procedureDO [facility] Work Phone: [facility] Work Phone: Start: 40-09-3220Wkv-patient / Non-visitDO Nathan Overcart Work Phone: [facility] Work Phone: Start: 69-50-5754Ydu-patient / Non-visitDO Nathan Overcart Work Phone: fircrumrodw Physician Group-[facility] Work Phone: Start: 04-28-2024 End: 12-72-9917piwjcwmtukFOCQICRK D CARMENCITAMony AvailableStart: 04-21-2024 End: 87-76-8280Vesqdv outpatient visit 15 Lesia Rosado APRN-FEED INSPECTION SUPERVISOR Work Phone: uh [facility] HospitalComment on above:Essential hypertension (Primary Dx); ASHD (arteriosclerotic heart disease); Mixed hyperlipidemia; BMI 32.0-32.9,adultStart: 04-21-2024 End: 77-62-4746uoizdwpfqrSBOSC [facility] AmbulatoryStart: 03-12-2024 End: 46-15-9952Lhplhrcsvt hospital visit by physicianLaura Shabazz La 1Moody HospitalComment on above:ASHD (arteriosclerotic heart disease)Start: 03-05-2024 End: 35-46-3879immpczlanvMP Nathan Overcart Work Phone: [facility] Work Phone: Start: 03-05-2024 End: 90-31-9356Tfpjkzn encounter procedureDO Nathan Overcart Work Phone: [facility]-Lab Main [place] Work Phone: Start: 03-05-2024 End: 99-08-0953Utwerv outpatient visit 25 Lesia Rosado APRN-FEED INSPECTION SUPERVISOR Work Phone: uh [facility] HospitalComment on above:ASHD (arteriosclerotic heart disease) (Primary Dx); Essential hypertension; Mixed hyperlipidemia; BMI 32.0-32.9,adultStart: 02-27-2024 End: 02-70-3410Raxjjhz encounter procedureDO Nathan Overcart Work Phone: [employer] [facility] Work Phone: Start: 76-66-8414Zev-patient / Non-visitDO Nathan Overcart Work Phone: [facility] GroupSaint [facility] Work Phone: Start: 30-38-5936Nxa-patient / Non-visitDO Nathan Hathaway Work Phone: [facility] GroupSaint [facility] Work Phone: Start: 58-28-4787Ayv-patient / Non-visitDO Nathan Hathaway Work Phone: [facility] GroupSaint [facility] Work Phone: Start: 09-47-1320Vrd-patient / Non-visitDO Nathan Hathaway Work Phone: [facility] Physician [facility] Work Phone: Start: 02-13-2024 End: 23-09-6491tkiykgtwyqRoubqwxtpSelect [facility]ty [facility] Work Phone: Start: 02-13-2024 End: 50-25-6682Nnenfyn encounter procedureHigh[facility] Phys[facility] GroupMemorial [facility] System Work Phone: Start: 54-80-3237Hat-patient / Non-visitFirvcu medical center Physician [facility] Work Phone: Start: 02-01-2024 End: 05-56-2705rxhetcehqrFvjqcpmqiSelect Medical Specialty [facility] Work Phone: Start: 02-01-2024 End: 86-34-1859Gregbdl encounter procedureHighsmith-[facility] Physician GroupKind[facility] Work Phone: Start: 01-04-2024 End: 16-01-2120uioiyennhxFpstdeij Isabela Other [facility] [employer] Other Start: 95-85-0274Rqixmdbaw encounterBenmin BallRegional Medical Centertart: 46-05-1790Jbv-patient / Non-visitFirvcu medical center Physician GroupSaint [facility] Work Phone: Start: 11-27-2023 End: 69-04-3046jjxmbzpmonWdtcrasm Ball Other [employer] Other Start: 66-78-3611Ppoqgvrhk encounterBenjamin BallFPG [facility] ClinicStart: 11-02-2023 End: 77-79-1575erksgbzgxtVkivztmc Ball Other [employer] Other Start: 03-39-0474Qkljdw outpatient visit 25 minutes Nathan BallFPG [facility] ClinicStart: 10-02-2023 End: 55-18-2538zhvjtjocyeHfogeelu Ball Other [employer] Other Start: 16-57-7520Doanwq outpatient visit 25 minutes Nathan BallFPG [facility] ClinicStart: 09-26-2023 End: 15-43-2333qsearmeednGhwhkujt Ball Other [facility] [employer] Other Start: 98-75-6533Tzifirywm encounterBenjamin BallFPG [facility] ClinicStart: 09-21-2023 End: 83-86-8799mzkgqqxhkcPihsmjuk Ball Other [employer] Other Start: 63-92-7292Cyceebaun encounterBenjamin BallFPG [facility] ClinicStart: 2023 End: 86-33-8051lmfirnguoeGozgdoij Ball Other [employer] Other Start: 80-79-1166Banppamlj encounterBenjamin BallFPG [facility] ClinicStart: 09-13-2023 End: 08-42-1677lktsgovlmiSeqlqkjy Ball Other [employer] Other Start: 96-39-5154Torvwmqjn encounterBenjamin BallFPG [facility] ClinicStart: 09-11-2023 End: 99-74-3080gqrohwggpbWwwmnthm Ball Other [employer] Other Start: 56-12-5972Fgttay outpatient visit 15 minutes Nathan BallFPG [facility] ClinicStart: 08-16-2023 End: 20-69-7658jaljodcpenTgxpufnc Ball Other [employer] Other Start: 52-44-7632Vuzjawzpz encounterBenjamin BallFPG [facility] ClinicStart: 07-31-2023 End: 52-14-7370qsmhhqkvijUyeypczw Ball Other [employer] Other Start: 95-47-3086Bfsaodkod encounterBenjamin BallFPG [facility] ClinicStart: 07-30-2023 End: 67-83-4641txgojorfhcVaonghcw Ball Other [employer] Other Start: 82-41-6887Zxozgfast encounterBenjamin BallFPG [facility] ClinicStart: 07-19-2023 End: 33-45-9875sltunellclPvqsuvrt Ball Other [employer] Other Start: 20-85-2887Qoiliwvet encounterBenjamin BallFPG [facility] ClinicStart: 07-18-2023 End: 01-00-9969wuuhvymscfFdeuzkub Ball Other [employer] Other Start: 69-19-9573Xvjzhejeq encounterBenjamin BallFPG [facility] ClinicStart: 07-17-2023 End: 97-43-8378ujimykktglHwypmjnr Ball Other [employer] Other Start: 30-73-5311Gtwsjcx evaluation of patient and reportBenjamin BallFPG [facility] ClinicStart: 06-28-2023 End: 13-30-8763vmuwzrgsdvFljketcf Ball Other [employer] Other Start: 28-69-2210Toionsraq encounterBenjamin BallFPG [facility] ClinicStart: 06-25-2023 End: 74-83-5017ukoqlizmijCanlfaao Ball Other [employer] Other Start: 09-84-2553Mpouwazcs encounterBenjamin BallFPG [facility] ClinicStart: 06-21-2023 End: 03-02-3078chxwtggakxIjgdydfu Ball Other [employer] Other Start: 94-73-9840Jldkysjcb encounterBenjamin BallFPG [facility] ClinicStart: 06-19-2023 End: 81-23-9362jvpipukftkTozklfnk Ball Other [employer] Other Start: 98-70-4057Dhuwfdurz encounterBenjamin BallFPG [facility] ClinicStart: 06-18-2023 End: 14-90-8978qyszmqzytzVzjqmead Ball Other [employer] Other Start: 74-82-2548Ikqzbsquz encounterBenjamin BallFPG [facility] ClinicStart: 06-15-2023 End: 86-40-4388dhjcqubvhjGxblguus Ball Other [employer] Other Start: 19-34-4484Djfvaewhy encounterBenjamin BallFPG [facility] ClinicStart: 06-08-2023 End: 44-63-5689avzqxliraeXetsxojy Ball Other [employer] Other Start: 00-33-0359Rkcnpd outpatient visit 15 minutes Nathan Hathaway Medical ClinicStart: 05-31-2333Obdvbrgwm encounterNatcameron Manzanares RNHematology/OncologyComment on above:ResultsStart: 06-04-2023 End: 09-12-5821ciqyelbgkiGmuip R Murphy MD Work Phone: [employer] Other Comment on above:Abnormal SPEP (Primary Dx); Anemia, unspecified type; Neuropathy - (NOS); Heart diseaseStart: 06-04-2023 End: 28-09-0931Ykdamki encounter procedureLuis Mckenzie MD Work Phone: SANDUSKYStart: 01-98-9070Ejxieynkq encounterBenalberta Hathaway Medical ClinicStart: 06-01-2023 End: 20-82-9032uxiifqcgddVetqvezi Ball Other [employer] Other Start: 87-43-1048Xgtfaotxs encounterBenalberta Hathaway Medical ClinicStart: 05-25-2023 End: 76-66-5252pasgghncudJobpxyub Ball Other [employer] Other Start: 41-82-9142Bsghbcmhssii care manage srvc 14 day dischargeBeesa Hathaway Medical ClinicStart: 05-17-2023 End: 69-72-7290Xirjipgqqp and management of inpatientDO Nathan Hathaway Work Phone: [facility] [place] [facility] Work Phone: Start: 05-17-2023 End: 91-84-2900kbkyyipyuvb encounterDO Nathan Hathaway Work Phone: [facility] Work Phone: Start: 05-16-2023 End: 71-43-9952mpcpmygysjPjajyaqh Ball Other [employer] Other Start: 17-20-9115Uoibsb outpatient visit 25 minutes Nathan BallFP[facility] ClinicStart: 05-09-2023 End: 26-34-9355lmutndeelcTgltgqsf Ball Other [facility] Other Start: 27-16-0821Rghovi outpatient visit 25 minutes Nathan BallFP[facility] ClinicStart: 90-35-2425Ybxiznwad encounterBenjamin E Ball Work Phone: [phone]-Rcyrw [facility] [facility] DO Work Phone: Start: 04-26-2023 End: 29-60-9357cgynsqbsdaGmxritcv Ball Other [facility] [employer] Other Start: 17-70-8204Fltzvu outpatient visit 25 minutes Nathan BallFP[facility] ClinicStart: 85-91-2161Ynktetmzk encounterBenjamin BallFP[facility] ClinicStart: 04-18-2023 End: 88-92-1244bzedpnvrrlDtupnume Ball Other [facility] [employer] Other Start: 02-61-2668Xtsnbi outpatient visit 25 minutes Nathan BallFP[facility] ClinicStart: 28-22-9739Prvvkswdu encounterBenjamin BallFP[facility] ClinicStart: 03-27-2023 End: 90-75-4135tenuwycccyKkailcht Ball Other [facility] [employer] Other Start: 36-22-1117Vwrzirgiz encounterBenjamin BallFPG [facility] ClinicStart: 03-15-2023 End: 99-24-3948obsnucbyqpCpovdlsx Ball Other [employer] Other Start: 98-17-5045Ahzjva outpatient visit 25 minutes Nathan BallFP[facility] ClinicStart: 03-09-2023 End: 88-17-7400ghlhdxqngpYe. Edinson PerrySentinel Property[employer] Other Start: 89-41-2592Swizzsswi encounterBenjamin BallFPG [facility] ClinicStart: 44-28-0863QRESVSXFK, Provider: Edinson Perry, Status: Pen, Time: 10:00 AMBenjamin E Ball Work Phone: [phone]-Ogohz [facility] DO Work Phone: Start: 03-09-2023 End: 05-07-0995Dsksgmcil to same day surgery centerDO Nathan Ball Work Phone: [facility]-Fitness Plan Coordinator Work Phone: Start: 03-08-2023 End: 19-86-1592cbwiozuzmuWY Nathan Ball Work Phone: [facility] Work Phone: Start: 03-08-2023 End: 28-75-0574Epkwahy encounter procedureDO Nathan Ball Work Phone: [facility] Fpn-Dsp-Rkwxjpyg Testing Work Phone: Start: 36-87-8196Tgaewc consultation new/estab patient 80 minBenjamin E Ball Work Phone: [phone]-Inneg [facility] DO Work Phone: Start: 57-76-4628kafgfbkvnlUr. Edinson Perry Facility:[id number]: 03-05-2023 End: 20-21-9926tmccmbpkieEdhmxygx Ball Other [employer] Other Start: 59-59-5819Egqlpbnsm encounterBenjamin BallFPG [facility] ClinicStart: 03-01-2023 End: 67-41-7566zctzzcrzzbAB NATHAN HATHAWAYFacility:L8Wyhsh: 02-27-2023 End: 20-72-9016hpnbduiwngFhndgpkc Ball Other [employer] Other Start: 83-86-8977Iomdhqpoq encounterBenjamin BallFP[facility] ClinicStart: 02-20-2023 End: 75-20-7033fjdrwefbfeKwuwihxo Ball Other [employer] Other Start: 41-15-8077Xvbrkfhnt encounterBenjamin BallFPG [facility] ClinicStart: 02-14-2023 End: 81-91-0994fikbgtvotaMpgrkcow Ball Other [employer] Other Start: 87-88-7388Ylogaa outpatient visit 25 minutes Nathan BallFP[facility] ClinicStart: 51-32-7392Fswcdjvaf encounterBenjamin BallFP[facility] ClinicStart: 02-11-2023 End: 84-48-7207jvaczrvigrAllhuqdd Ball Other [employer] Other Start: 51-80-6444Axpescher encounterBenjamin BallFPG [facility] ClinicStart: 02-08-2023 End: 38-66-3910Hsrzouwgem and management of inpatientDR NATHAN BALLFacility:H1 Start: 02-02-2023 End: 99-46-0967uujttxdxgeVgrvpgcz Ball Other [employer] Other Start: 12-62-0104Buzvcl outpatient visit 25 minutes Nathan BallFP[facility] ClinicStart: 01-08-2023 End: 75-51-4000hgebkhpivoXM NATHAN BALLFacility:X1Ybges: 12-21-2022 End: 67-99-7590xokqxgpassAcgaggaa Ball Other [employer] Other Start: 57-79-4339Vugoxxczt encounterBenjamin BallFP[facility] ClinicStart: 12-20-2022 End: 88-32-4789yefxdbfchyVysyibuz Ball Other [employer] Other Start: 39-75-4562Wpmrjmfop encounterBenjaairam Hathaway Medical ClinicStart: 12-14-2022 End: 15-45-9579fkkezvyuopKditndtm Ball Other [employer] Other Start: 48-96-7806Jrapwhj encounter procedureBenalberta Hathaway Medical ClinicStart: 12-04-2022 End: 11-02-7174prmxodptglLtdcl R Murphy MD Work Phone: Hematology/OncologyComment on above:Abnormal SPEP (Primary Dx); Neuropathy - (NOS); Lung nodulesStart: 12-04-2022 End: 46-79-3965Qencnfx encounter procedureLuis Mckenzie MD Work Phone: SANDUSKYStart: 11-23-2022 End: 75-42-6190caaxioirekTqdyxjqr Ball Other [employer] Other Start: 53-50-1228Slugmhrbc encounterBenalberta Hathaway Medical ClinicStart: 11-16-2022 End: 52-70-1381xiygbffyvsSZ NATHAN HATHAWAYFacility:E3Frgxg: 11-14-2022 End: 52-38-6025ribrryvsqpEpthwafd Ball Other [employer] Other Start: 54-25-4468Ediqir outpatient visit 25 minutes Nathan [facility] ClinicStart: 09-11-2022 End: 13-74-9953zqbynerbgoUW NATHAN BALLFacility:B1Zupcl: 96-66-6109Dvbtlvwya encounterCristy Manzanares RNHematology/OncologyComment on above:ResultsStart: 08-28-2022 End: 22-40-5310Jorsrmirps hospital visit by physicianArrival Time Radiology Work Phone: Radiology Pet CTComment on above: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]Start: 05-29-2022 End: 75-64-3253Ustqb (SP) Braydon Mckenzie MD Work Phone: Hematology/OncologyComment on above:Abnormal SPEP (Primary Dx); Neuropathy - (NOS); Disorder of adrenal gland (HCC); Lung nodulesStart: 64-61-9676Tiiqvkpvn encounterLuis Mckenzie MD Work Phone: Hematology/OncologyComment on above:Lab OrdersStart: 05-04-2022 End: 14-04-2707nxdgbjexkzTI NATHAN HATHAWAYFacility:G2Vgdsx: 06-92-1841Enbcg health examinationBeesa Hathaway Other [employer] Other Procedures DateProcedureProcedure DetailPerforming ClinicianStart: 21-99-1894Cxjpfq scan of lower limb veinsBenalberta Hathaway DO Work Phone: Start: 38-51-3711Unzyr volume recorder pneumoplethysmographyBenalberta Hathaway DO Work Phone: Start: 01-10-7323Ypzif chest X-rayBeesa Hathaway DO Work Phone: Start: 47-00-2313Bl soft tissue head & neck real time imge Cindy Esparza MD Work Phone: Start: 10-16-2801JeucdvshrwNnjjgkfd Ball DO Work Phone: Start: 66-16-1673Ff strs tst xers&/or rx cont ecg trcg Amanda Rosado SUPERVISOR SHUTTLE PREPARATION-FEED INSPECTION SUPERVISOR Work Phone: Start: 14-02-2237Xsuagiq of placement of stent for coronary artery diseaseS/P coronary artery stent placementHolden Rosado SUPERVISOR SHUTTLE PREPARATION-FEED INSPECTION SUPERVISOR Work Phone: Start: 80-93-7956BD angiography of thoraxDO Nathan Hathaway Work Phone: Start: 57-93-6383Crvnbr scan of lower limb veinsDO Nathan Hathaway Work Phone: Start: 94-07-6836VV Ivus Initial VesselDO Nathan Hathaway Work Phone: Start: 91-45-8224GO LHC & COR AngioDO Nathan Hathaway Work Phone: Start: 27-45-2023LK Stent 1st Vessel LAD DESDO Nathan Hathaway Work Phone: Start: 89-68-8031SU Stent 1st Vessel RCA DESDO Nathan Hathaway Work Phone: Start: 34-75-3803Ek abdomen & pelvis w/contrast Maynor Mckenzie MD Work Phone: Start: 23-97-6453Ad thorax w/contrast Maynor Mckenzie MD Work Phone: Start: 23-45-9916Touyu depression screening assessment Luis Mckenzie MD Work Phone: Start: 83-17-6469Ztobu depression screening assessment Luis Mckenzie MD Work Phone: Start: 63-78-1287Gvnvlklzn for malignant neoplasm of colonBenjamin Ball Other Start: 60-99-5146Tfngdaoyh for osteoporosisBenjamin Ball Other Depression screeningBenjamin Ball Other HysterectomyBenjamin E Ball Work Phone: Screening for malignant neoplasm of breastBenjamin Ball Other Screening for malignant neoplasm of breastBenjamin Ball Other Total colonoscopyBenjamin E Ball Work Phone: Comment on above:2012; Plan of Treatment DateCare ActivityDetailAuthorStart: 35-86-5225Oftlrgog ScreeningDiabetes ScreeningDevils Elbow ClinicStart: 53-02-2155Zgwwequy ScreeningDiabetes Screening [facility] ClinicStart: 79-84-1312Hzaqazsg ScreeningDiabetes ScreeningSalem Regional Medical Centertart: 62-20-8093JIUABDZC SCREENDIABETES SCREENSalem Regional Medical Centertart: 59-87-5178TLPNKRXC SCREENDIABETES SCREENSalem Regional Medical Centertart: 10-27-2025 End: 14-44-1194Ewuqupa encounter ixgouqcqq71/30/2025 2:10 PM EST Office Visit [facility] [address] [place] [phone] Edinson Perry, [address] [place] [address] [facility]: 10-07-2025 End: 54-75-7224fugyyterbc27/10/2025 3:00 PM EST Visit (SP) Office Hematology/Oncology [address] [place] [address] [place], [place] [phone] Valentin Leonard MD [address] [place] [address] 3 month ELDON with labHematology/OncologyComment on above:3 month ELDON with labStart: 10-07-2025 End: 07-71-5014Cuapxnl encounter cxiodaxjl12/10/2025 2:45 PM EST Office Visit [facility] [address] [place], [place] [address] [address] 3 month ELDON with labNortPaul Oliver Memorial Hospital LaboratoryComment on above:3 month ELDON with labStart: 36-85-6567FXBLDBCU SCREEN DIABETES SCREENSalem Regional Medical Centertart: 08-21-3230Zehlece referralKettering Health Preble Work Phone: Start: 07-08-2025 End: 47-04-1352kspeengixy42/10/2025 10:00 AM EDT Visit (SP) Office Hematology/Oncology [address] [place] [address] [place] [address] Paolo Casillas, THONY.FEED INSPECTION SUPERVISOR [address] [place] [address] Dr Hathaway 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 MGUSHematology/OncologyComment on above:Dr Hathaway wantkadie patient to continue seeing Paolo for MGUSStart: 07-08-2025 End: 53-29-8311Jazqitf encounter qacdsqmsp06/10/2025 10:00 AM EDT Office Visit [facility] [address] [place] [address] [place] [address] Labs Per January Staff MessageNortPaul Oliver Memorial Hospital LaboratoryComment on above:Labs Per January Staff MessageStart: 07-06-2025 End: 59-75-8066UCT W Auto Differential panel - BloodCOMPLETE BLOOD COUNT AND DIFFERENTIAL Lab Routine Abnormal SPEP Expected: 07/06/2025, Expires: 10/05/2025 [facility] Work Phone: Comment on above:Expected: 07/06/2025, Expires: 10/05/2025Start: 07-06-2025 End: 90-85-1271Ydcpdgceydsbw metabolic 2000 panel - Serum or PlasmaCOMPREHENSIVE METABOLIC PANEL Lab Routine Abnormal SPEP Expected: 07/06/2025, Expires: 10/05/2025leveland ClinicComment on above:Expected: 07/06/2025, Expires: 10/05/2025Start: 07-06-2025 End: 05-98-1028WIYRUORAVI PROTEIN, SERUM (BLOOD)MONOCLONAL PROTEIN, SERUM (BLOOD) Lab Routine Abnormal SPEP Expected: 07/06/2025, Expires: 10/05/2025 [facility] HospitalComment on above:Expected: 07/06/2025, Expires: 10/05/2025Start: 07-06-2025 End: 65-14-1693LCLWDIW ELECTROPHORESIS SERUM W/INTERPPROTEIN ELECTROPHORESIS SERUM W/INTERP Lab Routine Abnormal SPEP Expected: 07/06/2025, Expires: levelformerly park ridge health ClinicComment on above:Expected: 07/06/2025, Expires: 10/05/2025 Start: 95-77-6480Wzyinbumt vaccinationInfluenza Vaccine (#1)[facility] Start: 53-41-6507ILZDTCLQ SCREENDIABETES SCREENSalem Regional Medical Centertart: 05-04-2025 COVID-19 Vaccine ( season)COVID-19 Vaccine ( season) [facility]Start: 04-29-2025 End: 27-93-1756Txalxxp encounter toawyqilg26/02/2025 9:30 AM EDT Office Visit [facility] [address] [place] [phone] Fercho Tse DO [address] [place] [address] [facility] OPHTStart: 03-17-2025 End: 28-78-1302Zcwxvik encounter tnltumlty84/20/2025 10:45 AM EDT Appointment [address] [place] [address] [facility]: [facility]2025 End: 78-77-7093Fmdxjkf encounter procedureNOMS CI ENTComment on above:Arrived Start: 01-26-2025 End: 44-87-7689Dqpbormujfcn / ancillary services wlhwqwnoea73/31/2025 3:00 PM EDT Ancillary Procedure [address] [facility] [address] [place] [phone] [facility]: 01-12-2025 End: 43-24-3164Ewyqkj monitor studyHolter Or Event Counterintelligence Analyst Cardiac Services Routine Palpitations Expected: 01/12/2025 (Approximate), Expires: 01/12/2026[facility] Service Area Work Phone: Comment on above:Expected: 01/12/2025 (Approximate), Expires: 01/12/2026Start: 01-12-2025 End: 13-55-8844BW Heart TransthoracicTransthoracic Echo Complete Echocardiography Routine Essential hypertension Palpitations Expected: 0 01/12/2025 (Approximate), Expires: 01/12/2027[facility] Work Phone: Comment on above:Expected: 01/12/2025 (Approximate), Expires: 01/12/2027Start: 11-25-2024 End: 45-47-2334Ytlaiin encounter ngqcbpsvu14/28/2025 2:00 PM EST Office Visit [facility] [address] [place] [phone] Reyna Esparza MD [address] [place] [address] ArrivedNOMS CI ENTComment on above:ArrivedStart: 58-12-7654Ajousgj referralKettering Health Preble Work Phone: Start: 27-47-3855VzcjqmmgfMary Rutan Hospital Start: 13-96-4029YbntpechidXfqvrhodsSelect [facility] Northtart: 10-29-2024 Advance Directive DiscussionAdvance Directive DiscussionSalem Regional Medical Centertart: 10-08-2024 End: 38-35-3010Qztlrsi encounter nconibfjq86/11/2024 10:40 AM EST Office Visit [facility] [address] [place] [phone] Edinson Perry DO [address] [place] [address] [facility]: 38-65-4488Fdwwz-19 Vaccine ( season)Covid-19 Vaccine ( season)[facility] Centertart: 50-76-7108Nfhqjdeis vaccinationMercy Health Perrysburg HospitalStart: 04-21-2024 End: 57-85-3362Jetnk metabolic 2000 panel - Serum or PlasmaBasic Metabolic Panel Lab Routine ASHD (arteriosclerotic heart disease) Expected: 04/21/2024 (Approx imate), Expires: 04/21/2025[facility] Service Area Work Phone: Comment on above:Expected: 04/21/2024 (Approximate), Expires: 04/21/2025Start: 04-21-2024 End: 36-53-8518Labstry encounter numibuosr42/24/2024 10:30 AM EDT Office Visit [facility] [address] [place] [address] Holden Rosado, SUPERVISOR SHUTTLE PREPARATION-FEED INSPECTION SUPERVISOR [address] [place] [address] [facility]: 03-12-2024 End: 41-07-5836Fauydeo encounter qgrqofklt40/15/2024 10:15 AM EDT Appointment [facility] [address] [place] [address] [facility]Start: 03-12-2024 End: 99-47-3233Pxgoxya encounter procedure Bill Well[facility] Healthart: 03-05-2024 End: 08-92-6622Exzpl metabolic 2000 panel - Serum or PlasmaBasic Metabolic Panel Lab Routine Essential hypertension Expected: 03/05/2024 (Approximate), Expires: 03/05/2025UnRegency [facility] Work Phone: Comment on above:Expected: 03/05/2024 (Approximate), Expires: 03/05/2025Start: 03-05-2024 End: 61-04-6583LX Heart Perfusion W stress and W radionuclide IVNuclear Stress Test Cardiac Nuclear Medicine Routine ASHD (arteriosclerotic heart disease) Expected: 03/05/2024 (Approximate), Expires: 03/05/2026[facility] Service Area Work Phone: Comment on above:Expected: 03/05/2024 (Approximate), Expires: 03/05/2026Start: 05-17-5119MspxeqywaxkmodzwKhcizfomrwizhjYjlcndtecw [facility] ClevelandStart: 07-96-2133Xzlazpz Directive DiscussionAdvance Directive DiscussionSalem Regional Medical Centertart: 71-68-0818WUU, Provider: Edinson Perry, Status: Pen, Time: 11:20 AMFUV, Provider: Edinson Perry, Status: Nahid, Time: 11:20 AMMP-[facility] [address] DO Work Phone: Start: 17-13-0212OQQPA-19 Vaccine ( season) COVID-19 Vaccine ( season)[facility] HospitalStsaint [place]: 61-88-8726Xbzpyhddg vaccinationINFLUENZA (#1)[facility] Centertart: 05-29-2023 Adult depression screening assessmentDEPRESSION SCREENINGSalem Regional Medical Centertart: 08-85-6465QNQ, Provider: Edinson Perry, Status: Pen, Time: 10:20 AMFUV, Provider: Edinson Perry, Status: Pen, Time: 10:20 AM-[facility] [address] DO Work Phone: Start: 58-98-1555PzfaipwumMary Rutan Hospital Start: 85-31-4364Uauwhnhv [facility] Hospitaltart: 10-37-5120CyffzxewhSelect Medical Specialty Hospital [facility] Northtart: 96-09-9015DGRBI-19 VACCINE (6 - Pfizer series)COVID-19 VACCINE (6 - Pfizer series)[facility]ertart: 53-77-3265Zddui depression screening assessmentDEPRESSION SCREENINGSalem Regional Medical Centertart: 82-73-8110MBYJLLG DIRECTIVE DISCUSSIONADVANCE DIRECTIVE DISCUSSION [facility]ertart: 10-93-7179YVWNXGVMMI ASSESSMENTDEPRESSION ASSESSMENT [facility]ertart: 37-21-9218LGEQZ-19 Vaccine (3 - Pfizer risk series)COVID- 19 Vaccine (3 - Pfizer risk series)[facility]: 74-89-7786Nkfpkbcgm vaccinationINFLUENZA (#1)[facility]ertart: 03-25-2022 COVID-19 VACCINE (5 - Booster for Pfizer series)COVID-19 VACCINE (5 - Booster for Pfizer series)[facility]: 38-96-3848XPFFIMD DIRECTIVE DISCUSSION ADVANCE DIRECTIVE DISCUSSIONSalem Regional Medical Centertart: 56-12-6016UYGPVIOTDI ASSESSMENTDEPRESSION ASSESSMENTSalem Regional Medical Centertart: 03-78-0751Zummjmaz Vaccine (3 of 3)Shingrix Vaccine (3 of 3)[facility] Centertart: 51-03-1115Bnnzxe Vaccines (2 of 2)Zoster Vaccines (2 of 2)[facility]: 02-05-5609JSNUYDBX VACCINE (2 of 2)SHINGRIX VACCINE (2 of 2)[facility] Start: 69-72-3552EJM High Risk: (Elderly (60+) or Population) (1 - 1- dose 75+ series)RSV High Risk: (Elderly (60+) or Population) (1 - 1- dose 75+ series)[facility]: 45-86-4434CXJ Vaccine (1 - 1-dose 75+ series)RSV Vaccine (1 - 1-dose 75+ series)[facility]ertart: 53-79-6578KTdN/Tdap/Td Vaccines (1 - Tdap)DTaP/Tdap/Td Vaccines (1 - Tdap) [facility]: 52-82-9806Xcptr microalbumin profile DTaP,Tdap,Td Vaccine (1 - Tdap)[facility]: 88-94-5895AMCF DENSITYBONE DENSITYSalem Regional Medical Centertart: 97-73-3103RHQODDACQHLD: 65+ (1 - PCV) PNEUMOCOCCAL: 65+ (1 - PCV)[facility] Centertart: 56-81-4603Yoipyidzi for osteoporosisBone Density ScreeningSalem Regional Medical Centertart: 11-01-2007Medicare Annual Wellness VisitMedicare Annual Wellness VisitSalem Regional Medical Centertart: 99-47-0015RAX patients and/or patients aged 60+ years (1 - 1-dose 60+ series)RSV patients and/or patients aged 60+ years (1 - 1-dose 60+ series)[facility]: 45-54-8491WLvZ/Tdap/Td Vaccines (1 - Tdap)DTaP/Tdap/Td Vaccines (1 - Tdap)[facility] Start: 41-90-4444Jqiqo microalbumin profileDTAP,TDAP,TD (1 - Tdap)[facility]: 76-59-4414Lplsioa ScreeningAnxiety ScreeningSalem Regional Medical Centertart: 69-45-4544Agwszezzay ScreeningDepression ScreeningSalem Regional Medical Centertart: 63-31-4425Gahkfplm mellitus screeningDiabetes ScreeningUnBucyrus Community Hospital: 04-92-9950Uofhmqffni measurementCreatinine LevelUnBucyrus Community Hospital: 10-21-3784Vbxxu panelLipid PanelUnBucyrus Community Hospital: 1942Medicare Annual Wellness VisitMedicare Annual Wellness Visit (AWV)[facility]: 1942 Potassium measurementPotassium LevelUnBucyrus Community Hospital: 09-04-9831Xnysrgvbo for osteoporosisBone Density ScanUnRegency Hospital Cleveland EastComprehensive metabolic 2000 panel - Serum or PlasmaMary Rutan Hospital End: 56-63-4684Fv abdomen & pelvis w/contrast materialCT ABD/PEL W IVCON Radiology Routine Disorder of adrenal gland (HCC) 1 Occurrences starting 05/29/2022 until 06/28/2023[facility] Work Phone: Comment on above:1 Occurrences starting 05/29/2022 until 06/28/2023 End: 42-11-9362GX CHEST W IVCONCT CHEST W IVCON Radiology Routine Lung nodules 1 Occurrences starting 05/29/2022 until 06/28/2023[facility] Work Phone: Comment on above:1 Occurrences starting 05/29/2022 until 06/28/2023atient EducationAkron Children'S Hospital [facility]tr Work Phone: Patient referralAkron Children'S Hospital Ctr Work Phone: End: 49-00-2500ZX Heart TransthoracicCH[facility]STUS [facility] Service Area Work Phone: Comment on above:Once for 1 Occurrences starting 03/17/2025 until 03/17/2025XR Knee - right 4 [facility] Immunizations Immunization DateImmunizationNotesCare EkfublqwMvsjtasa76-31-5121rtdhaslzh, high dose seasonal, preservative-freeMary Rutan Hospital09-18-2024 influenza virus vaccine, unspecified formulationPaolo Casillas APRN.CNP Work Phone: [facility] HospitalItcnyo35-28-9733xevpfzyzv virus vaccine, unspecified formulationMary [facility] Hospital10-09-2023influenza, high dose seasonal, preservative-freeBenjuanairam Hathaway Other [employer] Other [id number]-87 Pfizer (Pediatric)Nathan Hathaway Other [facility]11-18-2022Pfizer COVID-19 Vac Bivalent 30 MCG/0.3ML Intramuscular SuspensionNathan Hathaway Work Phone: [facility]10-14-2022influenza virus vaccine, split virus (incl. purified surface antigen)Nathan Hathaway Other noIncisive Surgical [employer] Other [id number] virus vaccine, unspecified formulation[facility]04-02-2022COVID-19 mRNA, Comirnaty (Pfizer)DO Nathan Isabela Work Phone: [facility]04-02-2022COVID-19 PfizerBeesa Isabela Other [facility]10-02-2021COVID-19 vaccine, age 12+ yr (PFIZER-BIONTMyKontiki ([employer]) - [facility])Luis Mckenzie MD Work Phone: [facility] HospitalNmvyyb80-19-3600atfuhr vaccine, liveBenalberta Isabela Other [facility]09-21-2021influenza, high-dose, quadrivalent vaccine (FLUZONE HIGH DOSE QUADRIVALENT)Luis Mckenzie MD Work Phone: [facility] HospitalYaquwh96-18-7149fciiddiug virus vaccine, split virus (incl. purified surface antigen)Nathan Hathaway Other [employer] Other 09-989571-03-1622aemphzerw virus vaccine, unspecified formulationMary [facility]07-24-2021zoster vaccine recombinant Luis Mckenzie MD Work Phone: [facility] HospitalEpkyil73-10-9589esyaon vaccine, liveNathan Hathaway Other [facility]02-20-2021COVID-19 vaccine, age 12+ yr (PFIZER-BIONTECH - PURPLE TOP)Luis Mckenzie MD Work Phone: [facility] HospitalTvamxj76-45-9325BSVEU-41 Vaccine Moderna - Documentation Purposes OnlyNathan Hathaway Other [facility]01-30-2021COVID-19 vaccine, age 12+ yr (PFIZER-BIONTECH - [facility])Luis Mckenzie MD Work Phone: [facility] HospitalCukosd50-30-4630obyavoqme virus vaccine, split virus (incl. purified surface antigen)Nathan Hathaway Other [employer] Other [id number] virus vaccine, unspecified formulationMary [facility]09-11-2019AS03 adjuvantArrival Radiology Work Phone: [facility] HospitalTstjsr27-99-5976Qnvdpapo trivalent influenza vaccine, adjuvanted, preservative Ras Mckenzie MD Work Phone: [facility] HospitalMbzcju75-81-5500ZR25 adjuvantArrival Radiology Work Phone: [facility] HospitalAawczp68-20-1841sjrlkwltx virus vaccine, split virus (incl. purified surface antigen)Nathan Hathaway Other [employer] Other [id number] virus vaccine, unspecified formulation[facility]10-16-2018Seasonal trivalent influenza vaccine, adjuvanted, preservative Ras Mckenzie MD Work Phone: [facility] HospitalSawytu64-61-6598wjaggbnct virus vaccine, split virus (incl. purified surface antigen)Nathan Hathaway Other North [employer] Other 10-293140-00-8842eahdhdaxo virus vaccine, unspecified formulationMary [facility] Hospital10-06-2017influenza, high dose seasonal, preservative-freeLuis Mckenzie MD Work Phone: [facility] HospitalNlogsb62-97-2041gglllpqcf virus vaccine, split virus (incl. purified surface antigen)Nathan Hathaway Other [employer] Other 09-295608-68-8587cwndhaeop virus vaccine, unspecified formulationMary [facility] Hospital11-16-2015pneumococcal conjugate vaccine, 13 valentBenalberta Hathaway Other [facility]10-20-2015influenza virus vaccine, split virus (incl. purified surface antigen)Nathan Hathaway Other [facility] [employer] Other 10-627421-99-0728tmitxuxkc virus vaccine, unspecified formulationMary [facility] Hospital09-18-2014tetanus and diphtheria toxoids, adsorbed, preservative free, for adult use (5 Lf of tetanus toxoid and 2 Lf of diphtheria toxoid)Nathan Hathaway Other [facility]09-11-2013tetanus and diphtheria toxoids, adsorbed, preservative free, for adult use (5 Lf of tetanus toxoid and 2 Lf of diphtheria toxoid)Nathan Hathaway Other [facility]10-14-2010 pneumococcal polysaccharide vaccine, 23 valentBenjaairam Hathaway Other [facility] Payers DatePayer CategoryPayerPolicy [id number] supplemental policy (as second payer)[employer]ARP [id number] Private Health InsuranceC[facility] AARP SUPPLEMENT [id number] 2020-Present [phone] [address] [place] [address] Indemnity [id number] Health [id number] 2007MedicareMEDICARE MEDICARE A AND B [id number] 2007-Present [phone] [place] [address] [id number] 2007Medicare [id number] [id number] [id number] 2.0.1.213836.5249-20-1942 [id number] 2.840.1.276095.3.57[id number] 2.840.1.536098.3.57[id number] 2.16840.1.519958.3.57[id number] 2.840.1.237525.3.57[id number] 2.16.840.1.412874.3.57[id number] 2.16.840.1.901369.3.57[id number] 2.16.840.1.137335.3.57[id number] 2.16.840.1.460577.3.57[id number] 2.16.840.1.597295.3.57[id number] 2.16.840.1.441849.3.57[id number] 2.840.1.591499.3.579.2.35[id number] 2.16840.1.085875.3.57[id number] 2.16.840.1.931052.3.57[id number] 2.840.1.318586.3.579.2.[id number] 2.16840.1.980957.3.579.[id number] 2.16840.1.496000.3.57[id number] 2.16840.1.904[id number] [id number]-[id number] Social History DateTypeDetailFacilityStart: 08-01-2021 End: 05-76-6476Owictxf smoking status NHISEx-smokerNationwide Children'S Hospital End: 61-99-1052Ymismqw of tobacco useCigarette SmokerSalem Regional Medical Centertart: 08-01-2021 End: 58-36-8844Mxruaul use and exposureSmokeless tobacco non-userSalem Regional Medical Centertart: 73-21-0606Rnh Assigned At BirthNot on fileSalem Regional Medical Centertart: 05-12-2022 End: 13-28-9516Jkrrxrar to SARS-CoV-2 (event)Not sureNationwide Children'S Hospital End: 29-65-2074Vonuihi of tobacco useCurrent smokerSalem Regional Medical Centertart: 12-04-2022 End: 82-86-8294Rzf Assigned At BirthSalem Regional Medical Centertart: 12-04-2022 End: 65-04-4280Fp illicit drug useNo illicit drug useNationwide Children'S HospitalComment on above:2 coffees in am and 1 coffee at hs;1997;Start: 03-23-0002Joe Assigned At BirthFeMercy Health Urbana Hospitaltart: 06-04-2023 End: 37-33-9539Ftygpus intakeEx-drinker (finding)[facility]art: 85-40-0469Iekgw Depression Screening Kpevmbyawg1Vthpynjmk ClinicStart: 12-18-2023 End: 09-16-4115Npmnunf smoking status NHISNever smoked tobacco (finding) [facility]art: 03-05-2024 End: 60-72-9432Maztkgskn beverage intakeLifetime non-drinker (finding)[facility] Work Phone: Start: 09-11-2024 End: 23-50-0813KcqNxiyyp (finding)[facility] Medical Equipment Procedure CodeEquipment CodeEquipment Original TextEquipment IdentifierDatesCL STENT WILLIE FRONTIER 2.5 X 18FDAStart: 93-30-0529SA STENT WILLIE FRONTIER 4.0 X 15 FDAStart: 23-99-0262TB STENT WILLIE FRONTIER 4.0 X 18FDAStart: 86-78-7698IO STENT WILLIE FRONTIER 2.5 X 18FDAStart: 29-93-1286DJ STENT WILLIE FRONTIER 4.0 X 15FDA Start: 44-92-7625JP STENT WILLIE FRONTIER 4.0 X 18FDAStart: 79-49-3299KY STENT WILLIE FRONTIER 2.5 X 18FDAStart: 19-98-6416MC STENT WILLIE FRONTIER 4.0 X 15FDA Start: 71-50-5963NE STENT WILLIE FRONTIER 4.0 X 18FDAStart: 02-72-0103LW STENT WILLIE FRONTIER 2.5 X 18FDAStart: 16-90-9363WW STENT WILLIE FRONTIER 4.0 X 15FDA Start: 91-12-1603VQ STENT WILLIE FRONTIER 4.0 X 18FDAStart: 00-91-1477PW STENT WILLIE FRONTIER 2.5 X 18FDAStart: 45-26-4986IR STENT WILLIE FRONTIER 4.0 X 15FDA Start: 44-45-4275NG STENT WILLIE FRONTIER 4.0 X 18FDAStart: 70-45-3051XD STENT WILLIE FRONTIER 2.5 X 18FDAStart: 62-55-6188XO STENT WILLIE FRONTIER 4.0 X 15FDA Start: 88-69-6544QB STENT WILLIE FRONTIER 4.0 X 18FDAStart: 60-11-8528ZB STENT WILLIE FRONTIER 2.5 X 18FDAStart: 91-84-7514XV STENT WILLIE FRONTIER 4.0 X 15FDA Start: 78-30-9356YL STENT WILLIE FRONTIER 4.0 X 18FDAStart: 92-22-1108MJ STENT WILLIE FRONTIER 2.5 X 18FDAStart: 48-81-3002OL STENT WILLIE FRONTIER 4.0 X 15FDA Start: 75-89-9610RM STENT WILLIE FRONTIER 4.0 X 18FDAStart: 79-71-6897BN STENT WILLIE FRONTIER 2.5 X 18FDAStart: 28-10-2734HI STENT WILLIE FRONTIER 4.0 X 15FDA Start: 24-50-5317FB STENT WILLIE FRONTIER 4.0 X 18FDAStart: 68-57-9231XY STENT WILLIE FRONTIER 2.5 X 18FDAStart: 55-37-7846DL STENT WILLIE FRONTIER 4.0 X 15FDA Start: 65-99-4800KP STENT WILLIE FRONTIER 4.0 X 18FDAStart: 74-72-4315BQ STENT WILLIE FRONTIER 2.5 X 18FDAStart: 47-21-2775ES STENT WILLIE FRONTIER 4.0 X 15FDA Start: 71-04-3650AC STENT WILLIE FRONTIER 4.0 X 18FDAStart: 45-21-6029TZ STENT WILLIE FRONTIER 2.5 X 18FDAStart: 53-45-6909IE STENT WILLIE FRONTIER 4.0 X 15FDA Start: 08-28-2456IK STENT WILLIE FRONTIER 4.0 X 18FDAStart: 45-50-2095AC STENT WILLIE FRONTIER 2.5 X 18FDAStart: 60-19-8157EK STENT WILLIE FRONTIER 4.0 X 15FDA Start: 91-19-8355EW STENT WILLIE FRONTIER 4.0 X 18FDAStart: 27-07-0668JE STENT WILLIE FRONTIER 2.5 X 18FDAStart: 89-57-7796WN STENT WILLIE FRONTIER 4.0 X 15FDA Start: 28-33-5081KS STENT WILLIE FRONTIER 4.0 X 18FDAStart: 36-08-3061GV STENT WILLIE FRONTIER 2.5 X 18FDAStart: 74-53-2389FG STENT WILLIE FRONTIER 4.0 X 15FDA Start: 20-89-6762VZ STENT WILLIE FRONTIER 4.0 X 18FDAStart: 02-60-3229CB STENT WILLIE FRONTIER 2.5 X 18FDAStart: 90-71-4380EW STENT WILLIE FRONTIER 4.0 X 15FDA Start: 09-81-1993FC STENT WILLIE FRONTIER 4.0 X 18FDAStart: 31-15-7615LJ STENT WILLIE FRONTIER 2.5 X 18FDAStart: 11-36-4648ZV STENT WILLIE FRONTIER 4.0 X 15FDA Start: 84-98-7560BF STENT WILLIE FRONTIER 4.0 X 18FDAStart: 60-48-3413PO STENT WILLIE FRONTIER 2.5 X 18FDAStart: 51-42-9491IJ STENT WILLIE FRONTIER 4.0 X 15FDA Start: 63-53-2659MC STENT WILLIE FRONTIER 4.0 X 18FDAStart: 03-09-2023 Goals DatePatient GoalDesired Activity/State Functional Status IsnlYyklckmzrhXchidkSokgdqnv02-88-8409Lstmnlbkzu statusPatient at [facility] Work Phone: 1(495) 270-754305-019719-15-9950Rnbhdgovzm statusPatient at [facility] Work Phone: Mental Status MjcjFikaydqddcAfvumrBepasbma51-80-9813Cjbbvlhca functionCognitive Status [facility] Work Phone: [phone]) 132-338905-356068-47-9125Dcykpystg functionCognitive Status [facility] Work Phone: Clinical Notes 05-29-2022 to 08-19-2025 Note Date & QasfAnmsCqyrduwv24-27-1841 Radiology Diagnostic study [facility] [place] [address] Ultrasound Report Signed Patient: Lashaun Joaquin MR#: [id number] : 1940 Acct:[id number] Age/Sex: 84 / F ADM Date: 5 Loc: Room: Type: [facility] Attending Dr: Kaia Krishna 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 There was some varicositiesand supervising appraiser sutures also identified which all measure less [...] Menard M.D. 08/19/2025 12:30 PM Dictation Location: [place] [address] Tech: Darcy Kraft Transcribed By: LAURA 08/19/25 1230 Dictated By: Juan Jose Menard MD 08/19/25 1227 Signed By: 08/19/25 1230 [facility] Work Phone: 1(495) 515-625910-22-2025 [facility] [place] [address] [place] [address] Ultrasound Report Signed Patient: Lashaun Joaquin MR#: [id number] : 1940 Acct:[id number] Age/Sex: 84 / F ADM Date: 5 Loc: Room: Type: [facility] Attending Dr: Kaia Krishna [employer] PROCESSING LABOURER-C Ordering Provider: Kaia Krishna APRN Date of [...] Menard M.D. 08/19/2025 12:27 PM Dictation Location: [place] [address] Tech: Darcy Iyeredgardo Transcribed By: LAURA 08/19/251226 Dictated By: Juan Jose Menard MD 08/19/251225 Signed By: 08/19/251226 [facility] Work Phone: 1(948) 621-692509-12-2025 Telephone encounter Note* Telephone Encounter - Yolanda Cobian RN - 07/10/2025 2:11 PM EDT Refer to providers phone encounter for details of follow up/intervention Yolanda Cobian RN [facility]09-12-2025 Miscellaneous Notes* Telephone Encounter - Yolanda [...] Her daughter Marianna with today's lab results. [phone] documented in this encounterNation[facility]25 Telephone encounter Note * Telephone Encounter - Yolanda Cobian RN - 07/10/2025 11:[address] Hathaway's office and spoke with Dayana. I informed her of Mrs Joaquin worsening anemia/renal function and elevated blood proteins (refer to note per Kg Petit PA-C from today). She appreciated the update and will discuss with Dr Hathaway. Yolanda Cobian RN [facility]09-12-2025 Miscellaneous Notes* Telephone Encounter - Yolanda [...] Hathaway's office Please return the call at [phone] KERRY Menendez documented in this encounterNation[facility]09-12-2025 Telephone encounter Note * Telephone Encounter [...] Hathaway's office Please return the call at [phone] KERRY Menendez [facility]09-12-2025 Telephone encounter Note* Telephone Encounter - Yolanda Cobian RN - 07/10/2025 9:17 AM EDT Labs still pending. Yolanda Cobian RN [facility]09-10-2025 Telephone encounter Note* Telephone Encounter - Kayla Arriaga - 07/08/2025 11:23 AM EDT Please call Her daughter Marianna with today's lab results. [phone] [facility]09-09-2025 NoteHNO ID: [id number] Author: PAOLO CASILLAS APRN.FEED INSPECTION SUPERVISOR Service: ? Author Type: Nurse Practitioner Type: Progress Notes Filed: 07/10/2025 18:42 Note Text: PATIENT NAME: Lashaun Joaquin DATE: 07/08/2025 PRIMARY CARE PHYSICIAN: Dr. Natahn Hathaway OTHER PHYSICIANS: Dr. Perry Portions of [...] Never Vaping Use Vap (more content not included)...[facility]09-09-2025 History of Present illness Narrative* Paolo Casillas APRN.FEED INSPECTION SUPERVISOR - 07/07/2025 5:54 PM EDT PATIENT [...] 06/23/2025. (Scanned) IgM elevated, M-protein 0.2, and Doran/Lambda ration 10.59. Will repeat labs today. Hemoglobin [...] shortness of breath and was hospitalized at [facility] treated for suspected pneumonia. Apparently it was [...] which included preparing to see the patient, wixm-ew-wigj patient care, completing clinical documentation, obtaining and/or reviewing separately obtained history, performing a medically appropriate examination, counseling and educating the pat ient/family/caregiver, ordering medications, tests, or procedures, independently interpreting results (not separately reported), and communicating results to the patient/family/caregiver. documented in this encounterNation[facility]09-08-2025 Telephone encounter Note * Telephone Encounter - Loree Rosado MA - 07/06/2025 9:31 AM EDT Patient coming Sunday07/08/25 for follow up labs. Please add lab orders. Thanks. Loree Rosado MA [facility]08-22-2025 Evaluation note* Diagnosis Onset Date Resolution [...] lower extremitiesacuteOctober 2024 10:24amSkin tendernessdeletedOctober 2024 10:24am [facility] Work Phone: 1(600) 761-446708-22-2025 Evaluation note* Diagnosis Onset Date Resolution Status [...] with preserved ejection fraction (HFpEF)noneactiveOctober 2024 11:39am [facility] Work Phone: 1(411) 936-978807-22-2025 Evaluation note* Diagnosis Onset Date Resolution Status [...] 9:23amMedicare annual wellness visit, subsequentnoneactiveAugust 2024 9:23am [facility] Work Phone: 1([phone] 106-102707-22-2025 Evaluation note* Diagnosis Onset Date Resolution Status [...] with preserved ejection fraction (HFpEF)noneactiveSeptember 2024 3:32pm [facility] Work Phone: 1(969) 908-651907-22-2025 Evaluation note* Diagnosis Onset Date Resolution Status Admit Date Acute bronchitis due to other specified organisms noneactiveJuly 2024 3:17pmAcute exacerbation of chronic obstructive airways diseasenoneactiveJuly 2024 3:17pmAnemiaacuteAugust 2024 9:23amASHD (arteriosclerotic heart disease)acuteAugust 2024 9:23amChronic bronchitisacuteAugust 2024 9:23amChronic kidney diseaseacuteAugust 2024 9:23amChronic venous insufficiencyacuteAugust 2024 9:23amEssential hypertensionacuteAugust 2024 9:23amGAD (generalized anxiety disorder)acute [place] 2024 9:23amGastroesophageal reflux disease with esophagitis without [...] with preserved ejection fraction (HFpEF)noneactiveSeptember 2024 3:32pm [facility] Work Phone: 1(115) 889-249005-16-2025 Evaluation note* Diagnosis Onset Date Resolution Status [...] preserved ejection fraction (HFpEF) noneactiveMay 2024 11:21am [facility] Work Phone: 1([phone]) 377-935004-15-2025 History of Present illness Narrative* Reyna Esparza MD - 02/25/2025 9:00 AM EDT Subjective Patient ID: Lashaun Joaquin is a 84 y.o. female who presents for Thyroid Nodule (Follow ultrasound [facility] 02/10/25) US shows an 11mm nodule that is unchanged and mult subcentimeter nodules. No family history on file. Active Ambulatory Problems Diagnosis Date Noted Dry eyes 04/28/2024 Epiretinal membrane (ERM) of left eye 04/28/2024 Blepharitis of upper and lower eyelids of both eyes 04/28/2024 Abnormal cardiovascular stress test 11/24/2024 Adrenal nodule ([facility] 11/24/2024 Anemia 11/24/2024 ASHD (arteriosclerotic heart disease) ([facility]) 10/17/2023 Atrophic vaginitis 11/24/2024 BMI 33.0-33.9,adult 03/05/2024 Cervical spondylosis with radiculopathy 11/24/2024 Chronic bronchitis ([facility]) 11/24/2024 Chronic heart failure with preserved ejection [...] annually if stable documented in this encounterSaint [facility]'s Hospital [facility] SpringsIbulsjrckl16-72-8389 Miscellaneous Notes* Telephone Encounter - Alonzo LoreeABRAN - 07/06/2025 9:31 AM EDT Patient coming Sunday07/08/25 for follow up labs. Please add lab orders. Thanks. Loree Rosado MA documented in this encounterNationwide [facility]03-27-2025 Evaluation note* Diagnosis Onset Date Resolution [...] 11:21amSubclinical hypothyroidismacuteMay 2024 11:21amThyroid noduleacuteMay 2024 11:21am [facility] Work Phone: 1([phone] 673-922403-17-2025 Evaluation + Plan note* Assessment & Plan Note - CINTIA Gallego - 01/12/2025 3:48 PM EDTAssociated Problem(s): Cardiac and Vasculature January 2024 TTE LVEF greater than 55% Biatrial enlargement mild [facility] Work Phone: 1(411) 691-188003-17-2025 Miscellaneous Notes* Assessment & Plan Note - [...] heart disease) March 09, 2023 Mid/proximal RCA PCI/[place] 4x15mm & 4x18mm Proximal diagonal PCI/Willie 2.5 [...] hypertension Optimal in office documented in this [facility] Work Phone: 1([phone] 930-941203-17-2025 Evaluation + Plan note* Assessment & Plan Note - CINTIA Gallego - 01/12/2025 3:47 PM EDTAssociated Problem(s): Hyperlipidemia High intensity statin January 2024 HDL 42, cholesterol 158 [facility] Work Phone: 1(818) 505-895603-17-2025 Evaluation + Plan note* Assessment & Plan Note - CINTIA Gallego - 01/12/2025 3:47 PM EDTAssociated Problem(s): ASHD (arteriosclerotic heart disease) March 09, 2023 Mid/proximal RCA PCI/Willie 4x15mm & 4x18mm Proximal diagonal PCI/Willie 2.5 x 18 mm LAD 10% Circumflex normal LVEF 65% February 2024 MPI ischemia, EF 88% Current daily activity at 4 METS without concerning symptoms [facility] Work Phone: 1(563) 338-494003-17-2025 Evaluation + Plan note* Assessment & Plan Note - CINTIA Gallego - 01/12/2025 3:46 PM EDTAssociated Problem(s): Palpitations Reports fairly daily episodes of hearing my heart thumping going into my ears No prior documented A-fib or arrhythmia. Was taken off of carvedilol January 2024 hospitalization due to bradycardia [facility] Work Phone: 1([phone]) 476-752003-17-2025 Evaluation + Plan note* Assessment & Plan Note - CINTIA Gallego - 01/12/2025 3:46 PM EDTAssociated Problem(s): Essential hypertension Optimal in office [facility] Work Phone: 1([phone] 208-167703-17-2025 History of Present illness Narrative* CINTIA Gallego [...] Echo (RODGERS, diastolic dysfunction) Holden Rosado MSN, SUPERVISOR SHUTTLE PREPARATION-FEED INSPECTION SUPERVISOR, PMHNP-[facility] [place], [place] Please excuse any errors in grammar or translation related to this dictation. Voice recognition software was utilized to prepare this document. documented in this [facility] Work Phone: 1(439) 610-122003-17-2025 Instructions* Patient Instructions* CINTIA Gallego - 01/12/2025 [...] Echo (RODGERS, diastolic dysfunction) documented in this [facility] Work Phone: 1(495) 618-488001-28-2025 History of Present illness Narrative* Reyna Esparza MD - 11/25/2024 2:00 PM EST Subjective Patient ID: Lashaun Joaquin is a 84 y.o. female who presents for Thyroid Nodule Pt reports she had a thyroid US after being found to be mildly hypothyroid. US shows an 11mm mixed thyroid nodule. FNA performed that was [place] 1. No family H/O thyroid CA. No [...] in late December documented in this encounterSaint Mary's Hospital of Blue SpringsMdhzardymv09-64-6179 Chief complaint+Reason for visit Narrative* Chief Complaint [...] 10:20am Thyroid nodule December 16, 2024 10:20am [facility] Work Phone: 1(728) 479-155701-20-2025 Chief complaint+Reason for visit Narrative * Chief [...] knee pain January 22, 2025 9:5 1am [facility] Work Phone: 1([phone] Evaluation note* Diagnosis Onset Date Resolution Status Admit Date Thyroid nodule acuteJanuary 2024 9:45amASHD (arteriosclerotic heart disease)acuteFebruary 2024 10:20amChronic bronchitisacuteFebruary 2024 10:20amChronic heart failure with preserved ejection fraction (HFpEF)acuteFebruary 2024 10:20amChronic kidney diseaseacuteFebruary 2024 10:20amChronic venous insufficiencyacuteFebruary 2024 10:20amEssential hypertensionacuteFebruary 2024 10:20amSubclinical hypothyroidismacuteFebruary 2024 10:20am Thyroid noduleacuteFebruary 2024 10:20am [facility] Work Phone: 1([phone] 542-858101-20-2025 Evaluation note* Diagnosis Onset Date Resolution Status Admit Date Thyroid nodule acuteJanuary 2024 9:45amASHD (arteriosclerotic heart disease)acuteFebruary 2024 10:20amChronic bronchitisacuteFebruary 2024 10:20amChronic heart failure with preserved ejection fraction (HFpEF)acuteFebruary 2024 10:20amChronic kidney diseaseacuteFebruary 2024 10:20amChronic venous insufficiencyacuteFebruary 2024 10:20amEssential hypertensionacuteFebruary 2024 10:20amSubclinical hypothyroidismacuteFebruary 2024 10:20am Thyroid noduleacuteFebruary 2024 10:20amChronic kidney diseaseacuteMarch 2024 9:51amNocturnal leg crampsacuteMarch 2024 9:51amRight knee pain acuteMarch 2024 9:51am [facility] Work Phone: 1([phone] 926-707712-11-2024 History of Present illness Narrative* Edinson Perry, [...] diastolic heart failure. She was hospitalized at [facility] we were not involved in this. Her medications were changed, cluck carvedilol was discontinued and Entresto was initiated. She has supranormal left ventricular function with ejection fraction of 88% and normal perfusion scan February 2023. She did undergo primary PCI proximal RCA and diagonal branch in February 2023 for subsequentnon-ST elevation VT event with preserved LV function. She is [...] signing my name below, Racquel Cortez LPN, Scrib[place] attest that this documentation has been prepared [...] exam, discussion and plan. documented in this encounterMer[facility] Work Phone: 1(543) 761-512012-11-2024 Instructions* Patient Instructions* Racquel Olivera LPN - [...] Provided instructions on exercise. documented in this encounterMer[facility] Work Phone: 1(206) 568-175711-14-2024 Evaluation note* Diagnosis Onset Date Resolution Status Admit Date Anemia acuteSeptember 11, 2024 10:16amASHD (arteriosclerotic heart disease)acute September 11, 2024 10:16amChronic bronchitisacuteNov2023 10:16am Chronic heart failure with preserved ejection fraction (HFpEF)acuteSeptember 11, 2024 10:16amChronic venous insufficiencyacuteNov2023 10:16am Essential hypertensionacuteNov2023 10:16amGAD (generalized anxiety disorder)acuteSeptember 11, 2024 10:16amHypercholesterolemiaacuteNovember 2023 10:16amSubclinical hypothyroidismacuteSeptember 11, 2024 10:16am [facility] Work Phone: 1(450) 974-820411-14-2024 Evaluation note* Diagnosis Onset Date Resolution Status Admit Date Anemia acuteNovember 2023 10:16amASHD (arteriosclerotic heart disease)acute September 11, 2024 10:16amChronic bronchitisacuteNovember 2023 10:16am Chronic heart failure with preserved ejection fraction (HFpEF)acuteNovember 2023 10:16amChronic venous insufficiencyacuteNovember 2023 10:16am Essential hypertensionacuteNovember 2023 10:16amGAD (generalized anxiety disorder)acuteNov2023 10:16amHypercholesterolemiaacuteNovember 2023 10:16amSubclinical hypothyroidismacuteNovember 2023 10:16amThyroid noduleacuteJanuary 2024 9:45am [facility] Work Phone: 1(241) 396-520106-25-2024 Evaluation + Plan note* Assessment & Plan Note - CINTIA Gallego - 04/22/2024 11:58 AM EDTAssociated Problem(s): BMI 32.0-32.9,adult Reviewed the merits of healthy lifestyle choices on overall cardiovascular health. [facility] Work Phone: [phone]) 459-457906-25-2024 Evaluation + Plan note* Assessment & Plan Note - CINTIA Gallego - 04/22/2024 11:58 AM EDTAssociated Problem(s): Hyperlipidemia High intensity statin January 2024 HDL 42, cholesterol 158 [facility] Work Phone: 1([phone]) 446-424906-25-2024 Evaluation + Plan note* Assessment & Plan Note - CINTIA Gallego - 04/22/2024 11:58 AM EDTAssociated Problem(s): Essential hypertension Optimal in the office [facility] Work Phone: 1(387) 582-274406-25-2024 Evaluation + Plan note* Assessment & Plan Note - CINTIA Gallego - 04/22/2024 11:58 AM EDTAssociated Problem(s): ASHD (arteriosclerotic heart disease) March 09, 2023 Mid/proximal RCA PCI/[place] 4x15mm & 4x18mm Proximal diagonal PCI/Willie 2.5 x 18 mm LAD 10% Circumflex normal LVEF 65% February 2024 MPI ischemia, EF 88% Current daily activity at 4 METS without concerning symptoms [facility] Work Phone: 1(543) 984-113106-25-2024 Miscellaneous Notes* Assessment & Plan Note - [...] heart disease) March 09, 2023 Mid/proximal RCA PCI/[place] 4x15mm & 4x18mm Proximal diagonal PCI/Willie 2.5 x 18 mm LAD 10% Circumflex normal LVEF 65% February 2024 MPI ischemia, EF 88% Current daily activity at 4 METS without concerning symptoms documented in this [facility] Work Phone: 1(592) 602-175806-24-2024 History of Present illness Narrative* CINTIA Gallego [...] RCA PCI/Willie 4x15mm & 4x18mm Proximal diagonal PCI/[place] 2.5 x 18 mm LAD 10% Circumflex [...] Dr. Perry 6 months Holden Rosado MSN, SUPERVISOR SHUTTLE PREPARATION-FEED INSPECTION SUPERVISOR, PMHNP-[facility] Please excuse any errors in grammar or translation related to this dictation. Voice recognition software was utilized to prepare this document. documented in this encounterMer[facility] Work Phone: 1(453) 658-352306-24-2024 Instructions* Patient Instructions* CINTIA Gallego - 04/21/2024 [...] Dr. Perry 6 months documented in this encounterMer[facility] Work Phone: 1(642) 697-571805-09-2024 Evaluation + Plan note* Assessment & Plan Note - CINTIA Gallego - 03/06/2024 10:42 AM EDTAssociated Problem(s): BMI 32.0-32.9,adult Reviewed the merits of healthy lifestyle choices on overall cardiovascular health. [facility] Work Phone: 1(542) 992-519005-09-2024 Evaluation + Plan note* Assessment & Plan Note - CINTIA Gallego - 03/06/2024 10:42 AM EDTAssociated Problem(s): Hyperlipidemia High intensity statin January 2024 HDL 42, cholesterol 158 [facility] Work Phone: 1([phone]) 308-629505-09-2024 Miscellaneous Notes* Assessment & Plan Note - [...] Circumflex normal LVEF 65% documented in this [facility] Work Phone: 1(887) 541-607905-09-2024 Evaluation + Plan note* Assessment & Plan Note - CINTIA Gallego - 03/06/2024 10:41 AM EDTAssociated Problem(s): Essential hypertension Optimal in office [facility] Work Phone: 1([phone]) 854-907205-09-2024 Evaluation + Plan note* Assessment & Plan Note - CINTIA Gallego - 03/06/2024 10:41 AM EDTAssociated Problem(s): ASHD (arteriosclerotic heart disease) March 09, 2023 Mid/proximal RCA PCI/[place] 4x15mm & 4x18mm Proximal diagonal PCI/Willie 2.5 x 18 mm LAD 10% Circumflex normal LVEF 65% [facility] Work Phone: 1([phone] 889-671505-08-2024 History of Present illness Narrative* CINTIA Gallego - 03/05/2024 11:30 AM EDT Chief Complaint I am just not feeling good Reason for Visit Patient presents to the office today for outpatient follow-up for hospital follow-up. Last evaluated in clinic by Dr. Perry September 2023. January 2024: Hospitalized at [facility] due to accelerated hypertension and bradycardia. She was seen by [facility]. Inpatient echo showed EF greater than [...] heart disease) March 09, 2023 Mid/proximal RCA PCI/[place] 4x15mm & 4x18mm Proximal diagonal PCI/[place] 2.5 x 18 mm LAD 10% Circumflex [...] contact the office if new symptoms arise. 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 Voice recognition software was utilized to prepare this document. documented in this [facility] Work Phone: 1(527) 739-834805-08-2024 Instructions* Patient Instructions* CINTIA Gallego - 03/05/2024 [...] contact the office if new symptoms arise. 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 [facility] Other 11-29-2023 Evaluation note* Encounter Date Diagnosis Assessment Notes Treatment Notes Treatment Clinical Notes Aug, Chronic venous insufficiency (IC D-10 - I87.2) [facility] Other 11-24-2023 Evaluation note* Encounter Date Diagnosis Assessment Notes Treatment Notes Treatment Clinical Notes Aug, Subacute cough (ICD-10 - R05.2) Aug,yspnea on exertion (ICD-10 - R06.09) [facility] Other 11-20-2023 Evaluation note* Encounter Date Diagnosis Assessment Notes Treatment Notes Treatment Clinical Notes Aug, Chronic venous insufficiency (IC D-10 - I87.2) [facility] Other 11-16-2023 Evaluation note* Encounter Date Diagnosis Assessment Notes Treatment Notes Treatment Clinical Notes Aug, Chronic venous insufficiency (IC D-10 - I87.2) [facility] Other 11-14-2023 Evaluation note* Encounter Date Diagnosis Assessment Notes Treatment Notes Treatment Clinical Notes Aug, Acute bronchitis due to other sp ecified organisms (ICD-10 - J20.8) Instructed to use Robitussin or Mucinex for cough, saline or Flonase NS for congestion, Tylenol forpain and fever. 14 Aug,hronic obstructive pulmonary disease with (acute) exacerbation (ICD-10 - J44.1)Begin using EDEL as needed to mobilize secretions. [facility] Other 10-19-2023 Evaluation note* Encounter Date Diagnosis Assessment Notes Treatment Notes Treatment Clinical Notes Jul, Aphthous ulcer (ICD-10 - K12.0) [facility] Other 09-20-2023 Evaluation note* Encounter Date Diagnosis Assessment Notes Treatment Notes Treatment Clinical Notes Jun, Dysuria (ICD-10 - R30.0) [facility] Other 09-19-2023 Evaluation note* Encounter Date Diagnosis Assessment Notes Treatment Notes Treatment Clinical Notes Jun, Dysuria (ICD-10 - R30.0) [facility] Other 08-28-2023 Evaluation note* Encounter Date Diagnosis Assessment Notes Treatment Notes Treatment Clinical Notes May, Chronic venous insufficiency (IC D-10 - I87.2) [facility] Other 08-24-2023 Evaluation note* Encounter Date Diagnosis Assessment Notes Treatment Notes Treatment Clinical Notes May, Primary insomnia (ICD-10 - F51.0 1) [facility] Other 08-21-2023 Evaluation note* Encounter Date Diagnosis Assessment Notes Treatment Notes Treatment Clinical Notes May, Diastolic hypertension (ICD-10 - I10) [facility] Other 08-18-2023 Evaluation note* Encounter Date Diagnosis Assessment Notes Treatment Notes Treatment Clinical Notes May, Primary hypertension (ICD-10 - I 10) [facility] Other 08-18-2023 Evaluation note* Encounter Date Diagnosis Assessment Notes Treatment Notes Treatment Clinical Notes May, Diastolic hypertension (ICD-10 - I10) [facility] Other 08-11-2023 Evaluation note* Encounter Date Diagnosis [...] and feet daily for blisters and ulcerations. [facility] Other 08-09-2023 Miscellaneous Notes* Telephone Encounter - [...] can further discuss then. documented in this encounterNationwide [facility]-07-[facility] History of Present illness Narrative* Luis [...] shortness of breath and was hospitalized at [facility] and treated for suspected pneumonia. [...] [facility] [...] MD CC: Dr. Perry documented in this encounterNationwide Children'[facility] Hospital07-28-2023 Evaluation note* Encounter Date Diagnosis Assessment [...] dependence, cigarettes, in remission (ICD-10 - F17.211) [facility] Other 07-21-2023 Discharge summary Author Lj Ryan [facility] May 18, 2023 11:44amNote Date/TimeJuly 2022 11:44[place] [address] Discharge Summary Signed Patient: Lashaun Joaquin MR#: [id number] : 1940 Acct:[id number] Age/Sex: 82 / F Adm Date: 3 Loc: Room: [address] [place] [address]: Lj Ryan DO Copies to: [...] Sodium 142, Potassium 4.0, Chloride 103, Carbon Khorcgq17.5, Anion Gap 12.5, BUN 21, Creatinine 1.37 [...] # (Auto)4.4, Lymph # (Auto) 0.9 L, [place] # [...] signed by Lj Ryan DO> 05/18/23 1144 [facility] Work Phone: 1(143) 112-876607-20-2023 History and physical note Author Lj yRan [facility] May 17, 2023 3:56pmNote Date/TimeJuly 2022 3:49[place] [address] Hospitalist H&P Signed Patient: Lashaun Joaquin MR#: [id number] : 1940 Acct:[id number] Age/Sex: 82 / F Adm Date: 3 Loc: Room: [address] [place] [address] Type: ADM INOo Attending Dr: Lj Ryan [...] negative unless noted below or in HPI [facility] Medical History (Updated 05/17/23 [...] 1 Documented By: Lj Ryan DO 05/17/23 1544 Signed By: <Electronically signed by Lj Ryan DO> 05/17/23 1554 [facility] Work Phone: 1(211) 944-941207-19-2023 Evaluation note* Encounter Date Diagnosis Assessment Notes [...] index [BMI] 33.0-33.9, adult (ICD-10 - Z68.33) [facility] Other 07-12-2023 Evaluation note* Encounter Date Diagnosis [...] dependence, cigarettes, in remission (ICD-10 - F17.211) [facility] Other 06-29-2023 Evaluation note* Encounter Date Diagnosis Assessment Notes Treatment Notes Treatment Clinical Notes Mar, Paronychia of finger of right gagnon nd (ICD-10 - L03.011) [facility] Other 06-29-2023 Evaluation note* Encounter Date Diagnosis [...] and healthy diet. Mar,aresthesias (ICD-10 - R20.2) [facility] Other 06-21-2023 Evaluation note* Encounter Date Diagnosis [...] post PCI/stent placement. Continue for 12 months [facility] Other 06-21-2023 Evaluation note* Encounter Date Diagnosis Assessment Notes Treatment Notes Treatment Clinical Notes Mar, Chronic bronchitis, simple (ICD- 10 - J41.0) [facility] Other 05-30-2023 Evaluation note* Encounter Date Diagnosis Assessment Notes Treatment Notes Treatment Clinical Notes February, Paresthesias (ICD-10 - R20.2) [facility] Other 05-18-2023 Evaluation note* Encounter Date Diagnosis [...] Titrate Gabapentin and monitor for fluid retention [facility] Other 05-08-2023 Evaluation note* Encounter Date Diagnosis Assessment Notes Treatment Notes Treatment Clinical Notes February, Primary hypertension (ICD-10 - I 10) February,hronic venous insufficiency (ICD-10 - I87.2) [facility] Other 04-19-2023 Evaluation note* Encounter Date Diagnosis [...] pain, change in appetite or bowel habits [facility] Other 04-16-2023 Evaluation note* Encounter Date Diagnosis Assessment Notes Treatment Notes Treatment Clinical Notes Jan, Essential hypertension (ICD-10 - I10) ECHOCARDIOGRAM - 01/2023 1. LVEF is 65%. 2. Normal right ventricular size and systolic function, elevated RVSP 3. Grade 2 diastolic dysfunction. 4. Mild to moderate mitral regurgitation. Jan,ulmonary hypertension (ICD-10 - I27.20) Jan,cute on chronic diastolic heart failure (ICD-10 - I50.33) [facility] Other 04-07-2023 Evaluation note* Encounter Date Diagnosis [...] E78.01)Diet and exercise with continued statin therapy. [facility] Other 02-23-2023 Evaluation note* Encounter Date Diagnosis Assessment Notes Treatment Notes Treatment Clinical Notes Nov, Primary insomnia (ICD-10 - F51.0 1) [facility] Other 02-16-2023 Evaluation note* Encounter Date Diagnosis [...] mammogram for breast cancer (ICD-10 - Z12.31) [facility] Other 02-06-2023 History of Present illness Narrative* [...] PCP. Luis Mckenzie MD documented in this encounterNationwide Children[facility] Hospital01-17-2023 Evaluation note* Encounter Date Diagnosis Assessment [...] drinking prior to bedtime. Weight loss. PPI [facility] Other 11-01-2022 Miscellaneous Notes* Telephone Encounter - [...] in November MARBIN Freeman documented in this encounterNationwide Children[facility] Hospital10-31-2022 History of Present illness Narrative* Nancy [...] 28, 2022 12:49 PM documented in this encounterNationwide Children'S Hospital08-01-2022 History of Present illness Narrative* Luis [...] PCP. Luis [facility]ckenzie [facility] N[facility] - Reported * LASHAUN JOAQUIN is being seen for a consultation for abnormal test(s) results. * 82-year-old female seen in cardiology consultation at the request of Dr. Natalio hathaway for recent episode of respiratory distress, what sounds like congestive heart failure associated with accelerated hypertension, was admitted to [place] briefly, diuresed approximately 14 pounds with diuretics. [...] and proceed with heart cath this Sunday [facility] DO Work Phone: Evaluation note* Diagnosis Abnormal SPEP- Primary Other nonspecific findings on examination of blood Neuropathy - (NOS) 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 Lung nodules Other nonspecific abnormal finding of lung field documented in this encounter [facility] HospitalEvaluation [facility]* Diagnosis Abnormal SPEP- Primary Other nonspecific findings on examination of blood Neuropathy - (NOS) Lung nodules Other nonspecific abnormal finding of lung field documented in this encounter [facility] HospitalEvaludelaware [facility] ill noteNo InformationNort Propertybase Other Evaluation noteNo assessment information available [facility] Work Phone: Evaluation note* Diagnosis Onset Date Resolution Status Flash pulmonary edema acuteHeart failureacuteHypertensionacuteHypertensive emergencyacuteHypoxiaacute [facility] Work Phone: Evaluation note* Diagnosis Abnormal SPEP- Primary Other nonspecific findings on examination of blood Anemia, unspecified type Neuropathy - (NOS) Heart disease Heart disease, unspecified documented in this encounter [facility] HospitalEvaludelaware [facility] note* Diagnosis Onset Date Resolution Status ASHD (arteriosclerotic heart disease) acuteChronic diastolic heart failureacuteChronic venous insufficiencyacute Elevated cholesterolacuteEssential hypertensionacuteGAD (generalized anxiety disorder)acuteGastroesophageal reflux disease with esophagitis without hemorrhageacuteMGUS (monoclonal gammopathy of unknown significance)[facility] Work Phone: Evaluation note* Diagnosis Onset Date Resolution Status ASHD (arteriosclerotic heart disease) acuteChronic diastolic heart failureacuteChronic venous insufficiencyacute Elevated cholesterolacuteEssential hypertensionacuteGAD (generalized anxiety disorder)acuteGastroesophageal reflux disease with esophagitis without hemorrhageacuteMGUS (monoclonal gammopathy of unknown significance)acuteMedicare annual wellness visit, subsequentnoneactiveEustachian tube dysfunctionacute Right otitis mediaacute [facility] Work Phone: Evaluation note* Diagnosis ASHD (arteriosclerotic heart disease)- Primary Coronary atherosclerosis of unspecified type of vessel, tanana or graft Essential hypertension Unspecified essential hypertension Mixed hyperlipidemia BMI 32.0-32.9,adult documented in this encounter [facility] Work Phone: Evaluation note* Diagnosis Onset Date Resolution Status ASHD (arteriosclerotic heart disease) acuteChronic diastolic heart failureacuteChronic venous insufficiencyacute Elevated cholesterolacuteEssential hypertensionacuteGAD (generalized anxiety disorder)acuteGastroesophageal reflux disease with esophagitis without hemorrhageacuteMGUS (monoclonal gammopathy of unknown significance)acuteMedicare annual wellness visit, subsequentnoneactiveEustachian tube dysfunctionacute Right otitis mediaacuteASHD (arteriosclerotic heart disease)acuteChronic diastolic heart failureacuteChronic venous insufficiencyacuteEssential hypertensionacuteGAD (generalized anxiety disorder)acuteSubclinical hypothyroidismacute [facility] Work Phone: Evaluation note* Diagnosis ASHD (arteriosclerotic heart disease) Coronary atherosclerosis of unspecified type of vessel, tanana or graft documented in this encounter [facility] Work Phone: Evaluation note* Diagnosis Onset Date Resolution Status Anemia acuteASHD (arteriosclerotic heart disease)acuteChronic diastolic heart failure acuteChronic venous insufficiencyacuteEssential hypertensionacuteGAD (generalized anxiety disorder)acuteSubclinical hypothyroidismacute [facility] Work Phone: Evaluation note* Diagnosis 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 Lung nodules Other nonspecific abnormal finding of lung field documented in this encounter [facility] HospitalEvaluation [facility]* Diagnosis Onset Date Resolution Status Admit Date Anemia acuteNovember 2023 10:16amASHD (arteriosclerotic heart disease)acute September 11, 2024 10:16amChronic bronchitisacuteNovember 2023 10:16am Chronic heart failure with preserved ejection fraction (HFpEF)acuteNovember 2023 10:16amChronic venous insufficiencyacuteNovember 2023 10:16am Essential hypertensionacuteNovember 2023 10:16amGAD (generalized anxiety disorder)acuteNovember 2023 10:16amHypercholesterolemiaacuteNovember 2023 10:16amSubclinical hypothyroidismacuteNovember 2023 10:16am [facility] Work Phone: Evaluation note* Diagnosis Essential hypertension- Primary Unspecified essential hypertension ASHD (arteriosclerotic heart disease) Coronary atherosclerosis of unspecified type of vessel, tanana or graft Mixed hyperlipidemia BMI 32.0-32.9,adult documented in this encounter [facility] Work Phone: Evaluation note* Diagnosis ASHD (arteriosclerotic heart disease)- Primary Coronary atherosclerosis of unspecified type of vessel, tanana or graft Essential hypertension Unspecified essential hypertension Mixed hyperlipidemia BMI 32.0-32.9,adult Essential hypertension- Primary Unspecified essential hypertension ASHD (arteriosclerotic heart disease) Coronary atherosclerosis of unspecified type of vessel, tanana or graft Mixed hyperlipidemia BMI 32.0-32.9,adult ASHD (arteriosclerotic heart disease) Coronary atherosclerosis of unspecified type of vessel, tanana or graft Essential hypertension Unspecified essential hypertension BMI 33.0-33.9,adult Former smoker Personal history of tobacco use, presenting hazards to health S/P PTCA (percutaneous transluminal coronary angioplasty) Postsurgical percutaneous transluminal coronary angioplasty status Mixed hyperlipidemia Coronary arteriosclerosis after percutaneous transluminal coronary angioplasty (PTCA) documented in this encounter [facility] Work Phone: Evaluation note* Diagnosis Thyroid nodule (CMS/HCC)- Primary Nontoxic uninodular goiter [facility] Diagnosis ASHD (arteriosclerotic heart disease)- Primary Coronary atherosclerosis of unspecified type of vessel, tanana or graft Essential hypertension Unspecified essential hypertension Mixed hyperlipidemia BMI 32.0-32.9,adult Essential hypertension- Primary Unspecified essential hypertension ASHD (arteriosclerotic heart disease) Coronary atherosclerosis of unspecified type of vessel, tanana or graft Mixed hyperlipidemia BMI 32.0-32.9,adult BMI 33.0-33.9,adult- Primary Essential hypertension Unspecified essential hypertension Palpitations ASHD (arteriosclerotic heart disease) Coronary atherosclerosis of unspecified type of vessel, tanana or graft Mixed hyperlipidemia documented in this encounter [facility] Work Phone: Evaluation note* Diagnosis Nontoxic multinodular goiter (CMS/HCC)- Primary Nontoxic multinodular goiter [facility] Diagnosis ASHD (arteriosclerotic heart disease)- Primary Coronary atherosclerosis of unspecified type of vessel, tanana or graft Essential hypertension Unspecified essential hypertension Mixed hyperlipidemia BMI 32.0-32.9,adult Essential hypertension- Primary Unspecified essential hypertension ASHD (arteriosclerotic heart disease) Coronary atherosclerosis of unspecified type of vessel, tanana or graft Mixed hyperlipidemia BMI 32.0-32.9,adult BMI 33.0-33.9,adult- Primary Essential hypertension Unspecified essential hypertension Palpitations ASHD (arteriosclerotic heart disease) Coronary atherosclerosis of unspecified type of vessel, tanana or graft Mixed hyperlipidemia Essential hypertension Unspecified essential hypertension Palpitations documented in this encounter [facility] Work Phone: Evaluation note* Diagnosis Abnormal SPEP- Primary Other nonspecific findings on examination of blood documented in this encounter [facility]Eval[facility]* Diagnosis Abnormal SPEP- Primary Other nonspecific findings on examination of blood Primary hypertension Unspecified essential hypertension Hyperlipidemia, unspecified hyperlipidemia type Heart disease Heart disease, unspecified Edema, unspecified type 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 Anemia in other chronic diseases classified elsewhere documented in this encounter [facility] general Narrative - Reported* Type Description Date [...] History MalaiseMedical HistoryExogenous obesityMedical HistoryAnemiaSurgical History catarac [id number] [id number] Historysee surgical history [facility] Other History general Narrative - Reported* Type [...] History MalaiseMedical HistoryExogenous obesityMedical HistoryAnemiaSurgical History catarac [id number] [id number] HistoryPCI/stent RCA and diagonal br02/2023Hospitalization Historysee surgical history [facility] Other Hospital Discharge instructions Additional Instructions Please [...] to control your blood pressure in the hospital.[facility] Work Phone: Hospital Discharge instructionsAmbulatory Orders* Referral to ENT Time Frame: 11/19/24, Location: None Selected [facility] Work Phone: Reason for referral (narrative)* Consultation (Routine) - AuthorizedSpecialtyDiagnoses / ProceduresReferred By Contact Referred To ContactCardiology Diagnoses ASHD (arteriosclerotic heart disease) Procedures Follow Up In Cardiology Holden Rosado APRN-CNP [address] [facility] [address], [facility] [address] [place] [address] Referral IDStatusReasonStart DateExpiration DateVisits RequestedVisits [id number]/8/20245/8/202511 * Cardiac Stress Testing (Routine) - Pending ReviewSpecialtyDiagnoses / ProceduresReferred By ContactReferred To ContactRadiology Diagnoses ASHD (arteriosclerotic heart disease) Procedures Nuclear Stress Test CHG MYOCARDIAL SPECT MULTIPLE STUDIES Holden Rosado APRN-CNP [address] [facility] [address], [address] [address] Referral IDStatusReasonStart DateExpiration DateVisits RequestedVisits [id number] Review [facility] Work Phone: Reason for referral (narrative)* Consultation (Routine) - AuthorizedSpecialtyDiagnoses / ProceduresReferred By Contact Referred To ContactCardiology Diagnoses ASHD (arteriosclerotic heart disease) Procedures Follow Up In Cardiology Holden Rosado APRN-FEED INSPECTION SUPERVISOR [address] [address] Referral IDStatusReasonStart DateExpiration DateVisits RequestedVisits [id number]/24/20246/ [facility] Work Phone: Reason for referral (narrative)No reason for referral information availableK[facility] Health [facility] Work Phone: Reason for visit Narrative* CV Imaging (Routine) - AuthorizedSpecialtyDiagnoses / ProceduresReferred By ContactReferred To ContactCardiology Diagnoses Essential hypertension Palpitations Procedures Transthoracic Echo Complete MO ECHO TTHRC R-T 2D W/WOM-MODE COMPL SPEC&COLR D Holden Rosado SUPERVISOR [employer]UTTLE PREPARATION-FEED INSPECTION SUPERVISOR [address] [place] [address], [address] [address] Phone: tel: fax: Referral IDStatusReasonStart DateExpiration DateVisits RequestedVisits [id number] Perform Procedure [facility] Work Phone: Advance Directives No Advanced Directives Records FoundDocuments on File TypeDate RecordedPatient RepresentativeExplanationAdvance Directive(s)08/01/2021 12:55 PMAdvance DirectivesTypeDate [...] COMPUTED TOMOGRAPHY THORAX W/CONTRAST Luis Mckenzie MD [address] [place] [address] [address] [place] [address] Ct Imaging Referral IDStatusReasonStart DateExpiration DateVisits RequestedVisits [id number] Auto-Generated Referral /[id number] / ProceduresReferred By ContactReferred To ContactCT IMAGING Diagnoses Disorder of adrenal gland (HCC) Procedures CT ABD/PEL W IVCON CT ABD & PELVIS W/CONTRAST Luis Mckenzie MD [address] [place] [address] [address] [place] [address] Ct Imaging Referral IDStatusReasonStart DateExpiration DateVisits RequestedVisits [id number] Auto-Generated Referral /[id number] / ProceduresReferred By ContactReferred To ContactRadiology Diagnoses ASHD (arteriosclerotic heart disease) Procedures Nuclear Stress Test CHG MYOCARDIAL SPECT MULTIPLE STUDIES Holden Rosado, SUPERVISOR SHUTTLE PREPARATION-FEED INSPECTION SUPERVISOR [address] [facility] [address], [address] [place] [address] Referral IDStatusReasonStart DateExpiration DateVisits RequestedVisits [id number] Review/[id number] / Procedures Referred By ContactReferred To ContactCT IMAGING Diagnoses Lung nodules Procedures CT CHEST W IVCON DIAGNOSTIC COMPUTED TOMOGRAPHY THORAX W/CONTRAST Luis Mckenzie MD [address] [place] [address] [place] [address] [place] [address] Referral IDStatusReasonStsaint louis DateExpiration DateVisits RequestedVisits [id number] Auto-Generated Referral [id number] / ProceduresReferred By ContactReferred To ContactCT IMAGING Diagnoses Disorder of adrenal gland (HCC) Procedures CT ABD/PEL W IVCON CT ABD & PELVIS W/CONTRAST Luis Mckenzie MD [address] [place] [address] [place] [address] [place] [address] Referral IDStatusReasonStart DateExpiration DateVisits RequestedVisits [id number] Auto-Generated Referral 1 Family History No Family History Records [...] Member Name Dates Details Cardiac defibrillator in joreg ce: Mother, Brother Status:ActiveFamily history of hypertension: [...] ear ache Amb Documentation [facility] FOLLOW UP [id number] for VisitASHD (arteriosclerotic heart disease) Chronic diastolic [...] 112023 10:16am Essential hypertension September 11 10:16am MOAR (generalized anxiety disorder) Novem 2023 10:16am Hypercholesterolemia [...] 9: 23am Screening mammogram for breast cancer [facility] 2024 9:23am Subclinical hypothyroidism June 19, 2025 [...] 2025 9: 23am ASHD (arteriosclerotic heart disease) [facility] 2024 9:23am Chronic bronchitis June 19, 2025 [...] 9: 23am Screening mammogram for breast cancer [facility] 2024 9:23am Subclinical hypothyroidism June 19, 2025 [...] 2025 3:32pm Chronic kidney disease July 21 2 025 3:32pm Chronic venous insufficiency June 302024 3:32pm Essential hypertension July 21 025 3:32pm OMAR (generalized anxiety disorder) [facility] 2024 3:32pm MGUS (monoclonal gammopathy of [...] 9: 23am ASHD (arteriosclerotic heart disease) [facility] 2024 9:23am Chronic bronchitis June 19, [...] 23am Screening mammogram for breast cancer [facility] 2024 9:23am Subclinical hypothyroidism June 19, [...] 17, 2025 9 :42am I87.2 G25.81 R60.0 [id number] I83.893 Octobe r 2024 7:55am Reason for Visit Admit Date Anemia June 19, 2025 9: 23am ASHD (arteriosclerotic heart disease) [facility] 2024 9:23am Chronic bronchitis June 19, [...] 23am Screening mammogram for breast cancer [facility] 2024 9:23am Subclinical hypothyroidism June 19, [...] 17, 2025 9 :42am I87.2 G25.81 R60.0 [id number] I83.893 Octobe r 2024 7:55am [facility] hosp f/u-HIGH RISK August 21 11:39am Reason for Visit Admit Date Anemia June 19, 2025 9: 23am ASHD (arteriosclerotic heart disease) [facility] 2024 9:23am Chronic bronchitis June 19, 2025 [...] 9: 23am Screening mammogram for breast cancer [facility] 2024 9:23am Subclinical hypothyroidism June 19, 2025 9:23am Thyroid nodule June 19, 2025 9: 23am Acute on chronic heart failu re with preserved ejection fraction (HFpEF) June 19, 2025 9:23am Medicare annual wellness visit, subseque nt June 19, 2025 9:23am ASHD (arteriosclerotic heart disease) Se ptember 2024 3:32pm Chronic kidney disease July 21, 025 [...] or prosecute any alcohol or drug abuse patient.[facility] HospitalIn the event this information is protected by the Federal Confidentiality of Alcohol and Drug Abuse Patient Records regulations: The Federal rules restrict any use of the information to criminally investigate or prosecute any alcohol or drug abuse patient.[facility] HospitalIn the event this information is protected by the Federal Confidentiality of Alcohol and Drug Abuse Patient Records regulations: The Federal rules restrict any use of the information to criminally investigate or prosecute any alcohol or drug abuse patient.[facility] HospitalIn the event this information is protected by the Federal Confidentiality of Alcohol and Drug Abuse Patient Records regulations: The Federal rules restrict any use of the information to criminally investigate or prosecute any alcohol or drug abuse patient.[facility] HospitalIn the event this information is protected by the Federal Confidentiality of Alcohol and Drug Abuse Patient Records regulations: The Federal rules restrict any use of the information to criminally investigate or prosecute any alcohol or drug abuse patient.[facility] HospitalIn the event this information is protected by the Federal Confidentiality of Alcohol and Drug Abuse Patient Records regulations: The Federal rules restrict any use of the information to criminally investigate or prosecute any alcohol or drug abuse patient.[facility] HospitalIn the event this information is protected by the Federal Confidentiality of Alcohol and Drug Abuse Patient Records regulations: The Federal rules restrict any use of the information to criminally investigate or prosecute any alcohol or drug abuse patient.[facility] HospitalIn the event this information is protected by the Federal Confidentiality of Alcohol and Drug Abuse Patient Records regulations: The Federal rules restrict any use of the information to criminally investigate or prosecute any alcohol or drug abuse patient.[facility] HospitalIn the event this information is protected by the Federal Confidentiality of Alcohol and Drug Abuse Patient Records regulations: The Federal rules restrict any use of the information to criminally investigate or prosecute any alcohol or drug abuse patient.[facility] HospitalIn the event this information is protected by the Federal Confidentiality of Alcohol and Drug Abuse Patient Records regulations: The Federal rules restrict any use of the information to criminally investigate or prosecute any alcohol or drug abuse patient.[facility] HospitalIn the event this information is protected by the Federal Confidentiality of Alcohol and Drug Abuse Patient Records regulations: The Federal rules restrict any use of the information to criminally investigate or prosecute any alcohol or drug abuse patient.[facility] Reason for Visit (unrecogniz ed section and content) ReasonCommentsLab OrdersReasonCommentsabnormal spepReasonCommentsResultsReason CommentsAbnormal SPEPReasonCommentsFollow-upbradycardiaSpecialtyDiagnoses / ProceduresReferred By ContactReferred To ContactRadiology Diagnoses ASHD (arteriosclerotic heart disease) Procedures Nuclear Stress Test CHG MYOCARDIAL SPECT MULTIPLE STUDIES Holden Rosado, SUPERVISOR [employer]PAR[employer]-FEED INSPECTION SUPERVISOR [address] [facility] [address] [place] [address] Referral IDStatusReasonStart DateExpiration DateVisits RequestedVisits [id number] CT SpecialtyDiagnoses / ProceduresReferred By ContactReferred To ContactCT IMAGING Diagnoses Lung nodules Procedures CT CHEST W IVCON DIAGNOSTIC COMPUTED TOMOGRAPHY THORAX W/CONTRAST Luis Mckenzie MD [address] [place] [address] [place] [address] [place] [address] Referral IDStatusReasonStart DateExpiration DateVisits RequestedVisits [id number] Auto-Generated Referral /[id number]-fzTtjn resultxSpecialtyDiagnoses / ProceduresReferred By ContactReferred To ContactCardiology Diagnoses ASHD (arteriosclerotic heart disease) Procedures Follow Up In Cardiology Edinson Perry, DO [address] [facility] [address], [place] [id number] Holden Rosado, SUPERVISOR [employer]ED INSPECTION SUPERVISOR [address] [facility] [address], [place] [phone] Referral IDStatusReasonStart DateExpiration DateVisits RequestedVisits [id number]/20/202312/[id number]-so5 month SpecialtyDiagnoses / ProceduresReferred By ContactReferred To ContactCardiology Diagnoses ASHD (arteriosclerotic heart disease) Procedures Follow Up In Cardiology Holden Rosado, SUPERVISOR [employer]FEED INSPECTION SUPERVISOR [address] [facility] [address], [facility] [address] [place] [phone] Phone: tel: fax: Referral IDStatusReasonStart DateExpiration DateVisits RequestedVisits [id number]/24/20246/[id number] DateCommentsMed [id number] NoduleSpecialtyDiagnoses / Procedures Referred By ContactReferred To ContactOtolaryngology Diagnoses Nontoxic single thyroid nodule (CMS/HCC) Procedures [facility] UNLISTED EVALUATION AND MANAGEMENT SERVICE Nathan Hathaway MD [address] [place] [address] Phone: tel: Reyna Esparza MD [address] [facility] [address] [place] [address] Phone: tel: fax: Referral IDStatusReasonStart DateExpiration DateVisits RequestedVisits [id number]/22/20257/[id number]-nq9 months Follow up for Coronary Artery DiseaseSpecialtyDiagnoses / ProceduresReferred By ContactReferred To ContactCardiology Diagnoses Essential hypertension Procedures Follow Up In Cardiology Edinson Perry, DO [address] [facility] [address], [address] [address] Phone: tel: fax: Holden Rosado, SUPERVISOR [employer]PAR[employer]FEED INSPECTION SUPERVISOR [address] [facility] [address], [facility] [address] [place] [address] Phone: tel: fax: Referral IDStatusReasonStart DateExpiration DateVisits RequestedVisits [id number]/11/202412/[id number] Nodule Follow ultrasound [facility] 02/10/25ReasonCommentsLab OrdersntReasonCommentsOrders Patient UpdateReasonCommentsAbnormal SPEPFOLLOW [...] Status: Inactive Member Role Status Dates Nathan Isabela , DO Primary Care Provide r, Attending Provider Active Start: September 11, 2024 End: September 11, 2024 Team Status: Active Member Role Status Dates Nathan Isabela DO Primary Care Provide r, Attending Provider Active Start: September 12, 2024 Team Status: Inactive Member Role Status Dates Nathan Isabela DO Primary Care Provide r, Attending Provider [...] Active Start: March 05, 2024 End: March 05Comse Miranda ProviderActiveStart: March 05, 2024 End: March [...] - GeneralInternal Medicine01/31/12Team MemberRelationshipSpecialtyStart Date End Date IsabelaNathan PCP - [facility]01/31/12 Team Status: Inactive Member Role Status Dates Jonna Perry , DO Attending Provider Active Lindsay Prado Care ProviderActive Team Status: Inactive Member Role Status Dates Nathan Hathaway , DO Primary Care Provider Active Galina Quick ProviderActiveLj Ryan , DOAdmit Provider, Attending ProviderActiveTeam MemberRelationshipSpecialtyStart DateEnd Date IsabelaNathan Chinyere, DO PCP - [facility]01/31/12Team MemberRelationshipSpecialtyStart Date End Date IsabelaNathan DO Chinyere [facility] - [facility]01/31/12 Team Status: Active Member Role Status Dates Nathan Hathaway DO Primary Care Provide r, Attending Provider Active Start: February 02, 2024 Team Status: Inactive Member Role Status Dates Nathan Hathaway DO Primary Care Provider Active Start: February 13, 2024 End: February 13, 2024Deja Pope APRN [employer]-CAttencahrles ProviderActive Start: February 13, 2024 End: February 13, 2024Team MemberRelationshipSpecialtyStart DateEnd Date Nathan Hathaway, [facility]10/03/23 Team Status: Active Member Role Status [...] DateEnd Date Nathan Hathaway DO [facility] Ndhxuche24/6/23 MemberRelationshipSpecialtyStart Date End Date Nathan Hathaway DO [facility] - [facility] Iwmuqysw74/6/23am MemberRelationshipSpecialtyStart Date End Date Nathan Hathaway [facility] - [facility]/23Te MemberRelationshipSpecialtyStart Date End Date Nathan Hathaway DO [facility]10/03/23Team MemberRelationshipSpecialtyStart Date End Date Nathan Hathaway DO PCP - GeneralInternal Medicine01/31/12Team MemberRelationshipSpecialtyStart Date End Date Nathan Hathaway DO PCP - GeneralInternal Vljomvyg07/6/23Team MemberRelationshipSpecialtyStart Date End Date Nathan Hathaway DO [facility] Ynqykgbj97/6/23Te MemberRelationshipSpecialtyStart Date End Date Nathan Hathaway MD [address] [place] [phone] PCP - External PCPInternal Medicine06/29/23Team MemberRelationshipSpecialtyStart DateEnd Date Nathan Hathaway MD [address] [place] [phone] PCP - External PCPInternal Medicine06/29/23Team MemberRelationshipSpecialtyStart DateEnd Date Nathan Hathaway MD [address] [place] [phone] PCP - External PCPInternal Medicine06/29/23Team MemberRelationshipSpecialtyStart DateEnd Date Nathan Hathaway DO PCP - GeneralInternal Ralhjnnw13/6/23 Team Status: Inactive Member Role Status Dates aNthan Hathaway DO Primary Care Provide r, Attending Provider Active Start: January 22, 2025 End: January 22, 2025Team MemberRelationshipSpecialtyStart DateEnd Date Nathan Hathaway MD [address] [place] [phone] PCP - GeneralInternal Medicine02/10/25Team MemberRelationshipSpecialtyStart Date End Date Nathan Hathaway DO [address] [place] [phone] PCP - GeneralInternal Medicine02/10/25Team MemberRelationshipSpecialtyStart Date End Date Nathan Hathaway DO [address] [place] [phone] PCP - GeneralInternal Medicine02/10/25Team MemberRelationshipSpecialtyStart Date End Date Nathan Hathaway DO [address] [place] [address] [facility]/25 Team Status: Active Member Role Status Dates Nathan Hathaway DO Primary Care Provide r, Attending Provider Active Start: January 23, 2025 Team Status: Inactive Member Role Status Dates Nathan Hathaway DO Primary Care Provider Active Start: February 12, 2025 End: February 12hector Cruz DOEmeralina ProviderActiveStart: February 12, 2025 End: February 12, [...] DateEnd Date Nathan Hathaway DO PCP - [facility]01/31/12Team MemberRelationshipSpecialtyStart Date End Date Nathan Hathaway PCP - [facility]01/31/12Team MemberRelationshipSpecialtyStart Date End Date Nathan Hathaway PCP - [facility]01/31/12 Team Status: Active Member Role Status [...] Start: July 08, 2025 Fanny Bedoya APRN [employer]-CAttending ProviderActiveStart: July 08, 2025 Team Status: Active [...] 04, 2025 End: August 04, 2025Kaia Krishna [employer]-CAttending ProviderActiveStart: August 04, 2025 End: August 04, 2025 Team Status: Active Member Role/Relationship Status Dates Nathan Ball , DO Primary Care Provider Active Team Status: Inactive Member Role/Relationship Status Dates Nahtan Hathaway DO Primary Care Provider Active Start: June 19, 2025 End: June 19rustamairam Isabela , DOAttending ProviderActiveStart: June 19, 2025 End: [...] Start: July 08, 2025 Fanny Bedoya APRN [employer]-CAttending ProviderActiveStart: July 08, 2025 Team Status: Active [...] 04, 2025 End: August 04, 2025Kaia Krishna [employer]-CAttending ProviderActiveStart: August 04, 2025 End: August 04, [...] Seth Dupree DOAttending ProviderActiveStart: August 14, 2025 Team Status: Active Member Role/Relationship Status Dates Nathan Hathaway DO Primary Care Provider Active Start: August 15, 2025 Obiggy Fields , MDAttending ProviderActiveStart: August 15, 2025 Team Status: Active Member Role/Relationship Status Dates Nathan Hathaway DO Primary Care Provider Active Start: August 16, 2025 Obiggy Fields , MDAttending ProviderActiveStart: August 16, 2025 Team Status: Active [...] Start: August 21, 2025 End: August 21enalberta Hathaway , DOAttending ProviderActiveStart: August 21, 2025 End: August 21, 2025 INFORMATION SOURCE (unrecogn ized section and content) DATE CREATED AUTHOR 03/08/2023 [facility] DATE CREATED AUTHOR AUTHOR'S ORGANIZ ATION 03/09/2023 [employer] DATE CREATED AUTHOR AUTHOR'S ORGANIZ ATION 03/11/2023 [facility] DATE CREATED AUTHOR AUTHOR'S ORGANIZ ATION 02/26/2025 [facility] DATE CREATED AUTHOR AUTHOR'S ORGANIZ ATION 03/26/2025 [facility] DATE CREATED AUTHOR AUTHOR'S ORGANIZ ATION 03/26/2025 [facility] DATE CREATED AUTHOR AUTHOR'S ORGANIZ ATION 07/19/2025 [facility] DATE CREATED AUTHOR AUTHOR'S ORGANIZ ATION 08/21/2025 [facility] DATE CREATED AUTHOR AUTHOR'S ORGANIZ ATION 08/30/2025 [facility] Goals (unrecognized section and content) [...] BE BASED ON THE PRIMARY CLINICAL RECORDS. [facility] [employer] [facility]. provides no warranty or guarantee of the accuracy or completeness of information in this document.
[2025-09-19 14:36] LABS: pH VBG 7.477 (7.330-7.430)
[2025-09-19 14:37] LABS: PCO2 VBG 39.5 mmHg (40.0-52.0)
[2025-09-19 14:39] LABS: Hematocrit 29.9 % (36.0-48.0); Hemoglobin 10.0 g/dL (12.0-16.0); Immature Granulocytes Abs Auto 0.04 10^3/uL (0.00-0.03); Immature Granulocytes Pct Auto 0.3 % (0.0-0.5); Lymphocytes Absolute Auto 0.8 10^3/uL (1.2-3.8); Mean Corpuscular HGB Conc 33.4 g/dL (29.9-35.2); Mean Corpuscular Hemoglobin 29.1 pg (26.7-34.0); Mean Corpuscular Volume 86.9 fL (81.0-99.0); Platelet Count 417 10^3/uL (150-450); Red Blood Count 3.44 10^6/uL (4.20-5.40); White Blood Count 11.9 10^3/uL (4.0-11.0)
[2025-09-19 14:58] LABS: Alanine Aminotransferase 20 U/L (14-59); Albumin Globulin Ratio 0.9; Albumin Level 3.0 g/dL (3.4-5.0); Alkaline Phosphatase 57 U/L (46-116); Anion Gap 11.8; Aspartate Amino Transferase 14 U/L (15-37); Blood Urea Nitrogen 23.0 mg/dL (7.0-18.0); Calcium 8.9 mg/dL (8.5-10.1); Carbon Dioxide 30.6 mmol/L (21.0-32.0); Chloride 98 mmol/L (98-107); Estimated GFR (African America 40 (>=60 mL/min/1.73m^2); Estimated GFR (Non-African Ame 33 (>=60 mL/min/1.73m^2); Globulin 3.2 g/dL; Glucose 109 mg/dL (74-106); Magnesium 1.8 mg/dL (1.8-2.4); Potassium 3.4 mmol/L (3.5-5.1); Sodium 137 mmol/L (136-145); Total Protein 6.2 g/dL (6.4-8.2)
[2025-09-19 14:59] LABS: SARS-CoV-2 Ag NEGATIVE (NEGATIVE)
[2025-09-19 15:01] LABS: Lactate/Lactic Acid 0.8 mmol/L (0.4-2.0)
[2025-09-19] MEDS: LEVOFLOXACIN IN DEXTROSE 5 % 750 MG/150 ML PREMIX 100 MG IV (15:25)
[2025-09-19] MEDS: ALBUTEROL SULFATE 2.5 MG/3 ML VIAL NEB IH (15:32)
== END 2025-09-19 17:09 | disposition home or self-care (01) ==
PROVIDERS: Physician Assistant; Emergency Provider Emergency Medicine; PCP Internal Medicine
DX: J18.9 Pneumonia, unspecified organism (principal); R50.9 Fever, unspecified; N18.9 Chronic kidney disease, unspecified; Z87.891 Personal history of nicotine dependence
CPT/HCPCS: 36415; 71046; 80053; 81001; 82800; 83605; 83735; 85025; 87040; 87420; 87804; 87811; 93005; 94640; 96365; 96366; 99285